=== PATIENT | female | born 1970 | race Caucasian/White ===

== ENCOUNTER 2022-08-27 15:52 | Emergency (ER) | payer OTHER, SELFPAY ==
--- NOTE | 2022-08-27 15:54 | ECG_ITS ---
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
[2022-08-27 15:56] VITALS: BP 132/85; PULSE 106; RESP 20; TEMP 37; O2SAT 98; BMI 24.7
[2022-08-27 16:20] VITALS: O2SAT 98
[2022-08-27] MEDS: HYDROMORPHONE HCL 0.5 MG/0.5 ML SYRINGE 1 MG IV (16:28)
[2022-08-27] MEDS: ONDANSETRON PF 4 MG/2 ML VIAL IV (16:29)
[2022-08-27] MEDS: PANTOPRAZOLE SODIUM 40 MG VIAL IV (16:29)
--- NOTE | 2022-08-27 16:36 | ED_ITS ---
HPI - Abdominal Pain General Chief Complaint: Abdominal Pain Stated Complaint: Abdominal Pain Time Seen by Provider: 08/27/22 15:54 Mode of arrival: walk-in Limitations: no limitations History of Present Illness HPI narrative: Patient is a 52-year-old female well-known to this emergency department who presents to the Emergency Room for the evaluation of epigastric abdominal pain for the last 5-7 days. Patient states her gastrointestinal specialist at [facility] did an endoscopy procedure for her one week ago with esophageal stretching. She states she has had pain since the procedure when she contacted her specialist he referred her to this [facility] emergency department. She has a history of chronic pancreatitis. She denies any fevers or upper respiratory symptoms. She has had occasional vomiting but no diarrhea. She has no low abdominal, flank or chest pain. No urinary symptoms. Related Data Home Medications Medication Instructions Recorded Confirmed ergocalciferol (vitamin D2) 1,250 50,000 unit PO .weekly 08/27/22 08/27/22 mcg (50,000 unit) capsule (Vitamin D2) hueajh-ymehqtnr-weuoewa cap PO DAILY 08/27/22 6,000-19,000-30,000 unit capsule,delayed rel (Creon) Previous Rx's Medication Instructions Recorded oxycodone-acetaminophen 5 mg-325 1 tab PO Q6H PRN pain #10 tabs 08/27/22 mg tablet (Percocet) pantoprazole 40 mg tablet,delayed 40 mg PO DAILY #7 tabs 08/27/22 release (Protonix) promethazine 25 mg tablet 25 mg PO Q6H PRN nausea and 08/27/22 vomiting #12 tabs Allergies Allergy/AdvReac Type Severity Reaction Status Date / Time fentanyl AdvReac Intermediate Verified 08/27/22 15:59 haldol AdvReac Intermediate hives Uncoded 08/27/22 15:59 motrin AdvReac Intermediate hives Uncoded 08/27/22 15:59 tramadol AdvReac Intermediate hives Uncoded 08/27/22 15:59 pcn AdvReac Mild Uncoded 08/27/22 15:59 Review of Systems ROS Constitutional Denies: fever or chills Ears, nose, mouth, and throat Denies: neck pain Cardiovascular Denies: chest pain Respiratory Denies: shortness of breath or cough Gastrointestinal Reports: abdominal pain, nausea and vomiting Genitourinary Denies: painful urination Integumentary/Breast Denies: rash Exam Narrative Exam Narrative: Gen.: Awake, alert, in no distress Head: Normocephalic, atraumatic ENT: Moist mucous membranes Respiratory: No respiratory distress, lungs clear bilaterally Cardio: Regular rate and rhythm Gastrointestinal: Abdomen is soft, nondistended and tender to palpation in the epigastrium and right upper quadrant, voluntary guarding with no rebound Extremities: Moves extremities equally, no injuries noted Psych: Normal mood and affect Neuro: No focal neuro deficit Skin: Warm, dry, intact Constitutional Vital Signs - 24 hr 08/27/22 15:56 08/27/22 16:20 Temperature 98.6 F Pulse Rate [Monitor] 106 H Respiratory Rate 20 Blood Pressure [Left Arm] 132/85 H Pulse Oximetry 98 98 Oxygen Delivery Method Room Air Room Air Course Vital Signs Vital signs: Vital Signs Temperature 98.6 F 08/27/22 15:56 Pulse Rate 106 H 08/27/22 15:56 Respiratory Rate 20 08/27/22 15:56 Blood Pressure 132/85 H 08/27/22 15:56 Pulse Oximetry 98 08/27/22 15:56 Oxygen Delivery Method Room Air 08/27/22 15:56 Temperature 98.6 F 08/27/22 15:56 Pulse Rate 82 08/27/22 17:27 Respiratory Rate 18 08/27/22 17:27 Blood Pressure 108/68 08/27/22 17:27 Pulse Oximetry 98 08/27/22 17:27 Oxygen Delivery Method Room Air 08/27/22 16:20 MDM - Abdominal Pain MDM Narrative Medical decision making narrative: Patient was treated with IV Dilaudid, Zofran, Protonix. Lab studies are stable, amylase is elevated, although it is significantly less elevated than the patient has had in the past. Abdominal x-rays with no evidence of perforation or pneumomediastinum from recent procedure. She is discharged home to follow-up with PCP and her gastrointestinal specialist at [facility]. Short course of analgesics, Protonix and Phenergan were given for home. Return to the Emergency Room if symptoms change or worsen Lab Data Attestation: I reviewed the patient's lab results. Labs: Lab Results 08/27/22 Range/Units 16:23 WBC 11.1 H (4.0-11.0) 10^3/uL RBC 4.20 (4.20-5.40) 10^6/uL Hgb 14.0 (12.0-16.0) g/dL Hct 40.4 (36.0-48.0) % MCV 96.2 (81.0-99.0) fL MCH 33.3 (26.7-34.0) pg MCHC 34.7 (29.9-35.2) g/dL RDW 13.0 (11.0-15.0) % Plt Count 250 (150-450) 10^3/uL MPV 9.8 (9.5-13.5) fL Neut % (Auto) 70.1 (43.0-75.0) % Lymph % (Auto) 22.0 (20.5-60.0) % [place] % (Auto) 6.4 (1.7-12.0) % Eos % (Auto) 0.7 L (0.9-7.0) % Baso % (Auto) 0.5 (0.2-2.0) % Neut # (Auto) 7.8 H (1.4-6.5) 10^3/uL Lymph # (Auto) 2.4 (1.2-3.8) 10^3/uL Randolph # (Auto) 0.7 (0.3-0.8) 10^3/uL Eos # (Auto) 0.1 (0.0-0.7) 10^3/uL Baso # (Auto) 0.1 (0.0-0.1) 10^3/uL Abs Immat Gran (auto) 0.03 (0.00-0.03) 10^3/uL Imm/Tot Granulo (auto) 0.3 (0.0-0.5) % Sodium 140 (136-145) mmol/L Potassium 3.4 L (3.5-5.1) mmol/L Chloride 104 (98-107) mmol/L Carbon Dioxide 24.4 (21.0-32.0) mmol/L Anion Gap 15.0 BUN 11.0 (7.0-18.0) mg/dL Creatinine 1.22 H (0.55-1.02) mg/dL Est GFR ( Amer) 56 L (>=60) Est GFR (Non-Af Amer) 46 L (>=60) BUN/Creatinine Ratio 9.0 Glucose 121 H (74-106) mg/dL Lactate 0.8 (0.4-2.0) mmol/L Calcium 9.8 (8.5-10.1) mg/dL Total Bilirubin 0.2 (0.2-1.0) mg/dL AST 20 (15-37) U/L ALT 23 (14-59) U/L Alkaline Phosphatase 111 (46-116) U/L Troponin I High Sens 5.5 (4.0-51.3) pg/mL Total Protein 7.0 (6.4-8.2) g/dL Albumin 3.7 (3.4-5.0) g/dL Globulin 3.3 g/dL Albumin/Globulin Ratio 1.1 Amylase 127 H (25-115) U/L Lipase 196.0 (73.0-393.0) U/L Imaging Data Abdominal x-ray: Attestation: I have reviewed the pertinent imaging results. Radiologist's impression: Procedure: XR acute abdomen series EXAM TYPE: XR acute abdomen series EXAM DATE AND TIME: 08/27/2022 4:40 PM EDT INDICATION: 52 years old Female with pain, history of pancreatitis COMPARISON: None. TECHNIQUE: Frontal view of the chest. Supine and upright views of the abdomen. FINDINGS: No pneumothorax, pleural effusion or focal consolidation. Heart size is within normal limits. Normal nonobstructive bowel gas pattern. No subdiaphragmatic free intraperitoneal air. No pathologic calcifications. Visualized osseous structures appear unremarkable. IMPRESSION: Nonspecific abdomen. Electronically authenticated by: Chhaya RONQUILLO Date: 08/27/2022 17:23 ECG Data Attestation: ?I have reviewed the pertinent ECG results. (Sinus tachycardia at a rate of 101 , no acute ST elevation or ectopy.) ECG interpretation date: 08/27/22 ECG interpretation time: 16:55 Discharge Plan Discharge Chief Complaint: Abdominal Pain Clinical Impression: Chronic pancreatitis, Abdominal pain Patient Disposition: Home, Self-Care Time of Disposition Decision: 17:32 Condition: Good Prescriptions / Home Meds: New promethazine 25 mg tablet 25 mg PO Q6H PRN (Reason: nausea and vomiting) Qty: 12 0RF pantoprazole [Protonix] 40 mg tablet,delayed release (DR/EC) 40 mg PO DAILY Qty: 7 0RF oxycodone-acetaminophen [Percocet] 5-325 mg tablet 1 tab PO Q6H PRN (Reason: pain) Qty: 10 0RF No Action ergocalciferol (vitamin D2) [Vitamin D2] 1,250 mcg (50,000 unit) capsule 50,000 unit PO .weekly Creon 6,000-19,000 -30,000 unit capsule,delayed release(DR/EC) PO DAILY Instructions: Abdominal Pain (ED) Stand Alone Forms: Portal Instructions Referrals: [facility] [Primary Care Provider] - 1 week Discharge Date/Time: 08/27/22 17:42
[2022-08-27 16:37] LABS: Basophils Absolute Auto 0.1 10^3/uL (0.0-0.1); Basophils Percent Auto 0.5 % (0.2-2.0); Eosinophils Absolute Auto 0.1 10^3/uL (0.0-0.7); Eosinophils Percent Auto 0.7 % (0.9-7.0); Hematocrit 40.4 % (36.0-48.0); Immature Granulocytes Abs Auto 0.03 10^3/uL (0.00-0.03); Immature Granulocytes Pct Auto 0.3 % (0.0-0.5); Lymphocytes Absolute Auto 2.4 10^3/uL (1.2-3.8); Mean Corpuscular HGB Conc 34.7 g/dL (29.9-35.2); Mean Corpuscular Hemoglobin 33.3 pg (26.7-34.0); Mean Corpuscular Volume 96.2 fL (81.0-99.0); Mean Platelet Volume 9.8 fL (9.5-13.5); Monocytes Absolute Auto 0.7 10^3/uL (0.3-0.8); Monocytes Percent Auto 6.4 % (1.7-12.0); Neutrophils Absolute Auto 7.8 10^3/uL (1.4-6.5); Neutrophils Percent Auto 70.1 % (43.0-75.0); Platelet Count 250 10^3/uL (150-450); White Blood Count 11.1 10^3/uL (4.0-11.0)
--- NOTE | 2022-08-27 16:37 | XR_ITS ---
The [address] [address] Patient Name: CHIOMA RAINEY MRN: [id number] date: 1970 Sex: F Assigned Patient Location: ER Current Patient Location: ER Accession/Order Number: [id number] Exam Date: 08/27/2022 16:40 Report Date: 08/27/2022 17:23 At the request of: LUCRETIA SOLIMAN Procedure: XR acute abdomen series EXAM TYPE: XR acute abdomen series EXAM DATE AND TIME: 08/27/2022 4:40 PM EDT INDICATION: 52 years old Female with pain, history of pancreatitis COMPARISON: None. TECHNIQUE: Frontal view of the chest. Supine and upright views of the abdomen. FINDINGS: No pneumothorax, pleural effusion or focal consolidation. Heart size is within normal limits. Normal nonobstructive bowel gas pattern. No subdiaphragmatic free intraperitoneal air. No pathologic calcifications. Visualized osseous structures appear unremarkable. IMPRESSION: Nonspecific abdomen. Electronically authenticated by: Chhaya RONQUILLO Date: 08/27/2022 17:23
[2022-08-27 16:51] LABS: Alanine Aminotransferase 23 U/L (14-59); Albumin Globulin Ratio 1.1; Albumin Level 3.7 g/dL (3.4-5.0); Alkaline Phosphatase 111 U/L (46-116); Amylase 127 U/L (25-115); Aspartate Amino Transferase 20 U/L (15-37); Bilirubin Total 0.2 mg/dL (0.2-1.0); Calcium 9.8 mg/dL (8.5-10.1); Carbon Dioxide 24.4 mmol/L (21.0-32.0); Chloride 104 mmol/L (98-107); Estimated GFR (African America 56 (>=60); Estimated GFR (Non-African Ame 46 (>=60); Globulin 3.3 g/dL; Glucose 121 mg/dL (74-106); Lactate/Lactic Acid 0.8 mmol/L (0.4-2.0); Potassium 3.4 mmol/L (3.5-5.1); Sodium 140 mmol/L (136-145); Troponin I High Sensitivity 5.5 pg/mL (4.0-51.3)
[2022-08-27 17:27] VITALS: BP 108/68; PULSE 82; RESP 18; O2SAT 98
== END 2022-08-27 17:42 | disposition home or self-care (01) ==
PROVIDERS: Physician Assistant; Emergency Provider Emergency Medicine
DX: R10.9 Unspecified abdominal pain (principal); K86.1 Other chronic pancreatitis; Z79.899 Other long term (current) drug therapy
CPT/HCPCS: 36415; 74022; 80053; 81003; 82150; 83605; 83690; 84484; 85025; 93005; 96374; 96375; 99285; J1170

== ENCOUNTER 2022-10-14 17:29 | Emergency (ER) | payer OTHER, SELFPAY ==
[2022-10-14 17:33] VITALS: BP 151/92; PULSE 101; RESP 18; TEMP 36.8; O2SAT 97; BMI 23.8
--- NOTE | 2022-10-14 17:39 | ED.ABDPAIN1 ---
HPI - Abdominal Pain General Chief Complaint: Abdominal Pain Stated Complaint: ADBOMINAL PAIN Time Seen by Provider: 10/14/22 17:37 Source: patient Mode of arrival: walk-in History of Present Illness HPI narrative: patient is a 52-year-old female on to this emergency department who presents to the Emergency Room for epigastric discomfort for the last week. She has a history of chronic pancreatitis and has had multiple gastrointestinal procedures and gastrointestinal evaluations with various specialists. She is currently seeking care with [facility] and has a gastrointestinal specialist there. She had a procedure for endoscopy with esophageal stretching two months ago and states that her specialist believes that it didn't take and she is due in December to have the same procedure again. She has had multiple episodes of emesis. She has Phenergan at home that she took approximately three hours ago without improvement. She has had some diarrhea. She has had no fevers, chills, upper respiratory symptoms, chest pain or shortness of breath. Related Data Home Medications Medication Instructions Recorded Confirmed ergocalciferol (vitamin D2) 1,250 50,000 unit PO .weekly 08/27/22 08/27/22 mcg (50,000 unit) capsule (Vitamin D2) sjmmoe-qyoemwmk-lwphxmj cap PO DAILY 08/27/22 6,000-19,000-30,000 unit capsule,delayed rel (Creon) Previous Rx's Medication Instructions Recorded oxycodone-acetaminophen 5 mg-325 1 tab PO Q6H PRN pain #10 tabs 08/27/22 mg tablet (Percocet) pantoprazole 40 mg tablet,delayed 40 mg PO DAILY #7 tabs 08/27/22 release (Protonix) promethazine 25 mg tablet 25 mg PO Q6H PRN nausea and 08/27/22 vomiting #12 tabs hydrocodone 5 mg-acetaminophen 325 1 tab PO Q6H PRN pain #8 tabs 10/14/22 mg tablet ondansetron 4 mg disintegrating 4 mg PO Q6H PRN nausea and 10/14/22 tablet vomiting #12 tabs sucralfate 1 gram tablet (Carafate) 1 g PO Q6H PRN abdominal pain #12 10/14/22 tabs Allergies Allergy/AdvReac Type Severity Reaction Status Date / Time ketorolac [From Toradol] AdvReac Severe Hives Verified 10/14/22 17:37 fentanyl AdvReac Intermediate Verified 10/14/22 17:37 haldol AdvReac Intermediate hives Uncoded 10/14/22 17:37 motrin AdvReac Intermediate hives Uncoded 10/14/22 17:37 tramadol AdvReac Intermediate hives Uncoded 10/14/22 17:37 pcn AdvReac Mild Uncoded 10/14/22 17:37 Exam Constitutional Vital Signs, click to edit/add: Last Vital Signs Temp 98.3 F 10/14/22 17:33 Pulse 101 H 10/14/22 17:33 Resp 18 10/14/22 17:33 BP 151/92 H 10/14/22 17:33 Pulse Ox 97 10/14/22 17:33 O2 Del Method Room Air 10/14/22 17:33 Course Vital Signs Vital signs: Vital Signs Temperature 98.3 F 10/14/22 17:33 Pulse Rate 101 H 10/14/22 17:33 Respiratory Rate 18 10/14/22 17:33 Blood Pressure 151/92 H 10/14/22 17:33 Pulse Oximetry 97 10/14/22 17:33 Oxygen Delivery Method Room Air 10/14/22 17:33 Temperature 98.3 F 10/14/22 17:33 Pulse Rate 101 H 10/14/22 17:33 Respiratory Rate 18 10/14/22 17:33 Blood Pressure 151/92 H 10/14/22 17:33 Pulse Oximetry 97 10/14/22 17:33 Oxygen Delivery Method Room Air 10/14/22 17:33 MDM - Abdominal Pain MDM Narrative Medical decision making narrative: lab studies show no evidence of leukocytosis, lipase and amylase are normal. Abdomen is soft and benign on recheck by attending physician. Patient with normal EKG and troponin. She was treated with IV Dilaudid, fluids, Zofran. She will be discharged home with a short course of analgesics, Carafate, Zofran. Follow-up with [facility] specialist as scheduled. Return to the Emergency Room if symptoms change or worsen. Medical Records Attestation: I reviewed the patient's medical records. Lab Data Attestation: I reviewed the patient's lab results. Labs: Lab Results 10/14/22 Range/Units 17:45 WBC 9.8 (4.0-11.0) 10^3/uL RBC 4.17 L (4.20-5.40) 10^6/uL Hgb 13.6 (12.0-16.0) g/dL Hct 40.2 (36.0-48.0) % MCV 96.4 (81.0-99.0) fL MCH 32.6 (26.7-34.0) pg MCHC 33.8 (29.9-35.2) g/dL RDW 13.2 (11.0-15.0) % Plt Count 261 (150-450) 10^3/uL MPV 9.4 L (9.5-13.5) fL Neut % (Auto) 59.8 (43.0-75.0) % Lymph % (Auto) 28.6 (20.5-60.0) % Keith % (Auto) 9.0 (1.7-12.0) % Eos % (Auto) 1.7 (0.9-7.0) % Baso % (Auto) 0.7 (0.2-2.0) % Neut # (Auto) 5.9 (1.4-6.5) 10^3/uL Lymph # (Auto) 2.8 (1.2-3.8) 10^3/uL Keith # (Auto) 0.9 H (0.3-0.8) 10^3/uL Eos # (Auto) 0.2 (0.0-0.7) 10^3/uL Baso # (Auto) 0.1 (0.0-0.1) 10^3/uL Abs Immat Gran (auto) 0.02 (0.00-0.03) 10^3/uL Imm/Tot Granulo (auto) 0.2 (0.0-0.5) % Sodium 138 (136-145) mmol/L Potassium 3.4 L (3.5-5.1) mmol/L Chloride 104 (98-107) mmol/L Carbon Dioxide 24.3 (21.0-32.0) mmol/L Anion Gap 13.1 BUN 10.0 (7.0-18.0) mg/dL Creatinine 1.01 (0.55-1.02) mg/dL Est GFR ( Amer) >60 (>=60) Est GFR (Non-Af Amer) 57 L (>=60) BUN/Creatinine Ratio 9.9 Glucose 141 H (74-106) mg/dL Calcium 9.2 (8.5-10.1) mg/dL Total Bilirubin 0.2 (0.2-1.0) mg/dL AST 17 (15-37) U/L ALT 19 (14-59) U/L Alkaline Phosphatase 119 H (46-116) U/L Troponin I High Sens 4.1 (4.0-51.3) pg/mL Total Protein 6.8 (6.4-8.2) g/dL Albumin 3.6 (3.4-5.0) g/dL Globulin 3.2 g/dL Albumin/Globulin Ratio 1.1 Amylase 110 (25-115) U/L Lipase 176.0 (73.0-393.0) U/L Urine Color Yellow (YELLOW) Urine Clarity Clear (CLEAR) Urine pH 5.0 (5.0-9.0) Ur Specific [place] 1.025 (1.005-1.025) Urine Protein Negative (NEG/TRACE) mg/dL Urine Glucose (UA) Negative (NEGATIVE) mg/dL Urine Ketones Negative (NEGATIVE) mg/dL Urine Occult Blood Negative (NEGATIVE) Urine Nitrite Negative (NEGATIVE) Urine Bilirubin Negative (NEGATIVE) Urine Urobilinogen 1.0 (0.2-1.0) EU/dL Ur Leukocyte Esterase Negative (NEGATIVE) ECG Data Attestation: I personally reviewed and interpreted this ECG as follows: (normal sinus rhythm at a rate of eighty-seven, no acute ST elevation or ectopy. Artifact noted. EKG reviewed by attending physician) Discharge Plan Discharge Chief Complaint: Abdominal Pain Clinical Impression: Abdominal pain Patient Disposition: Home, Self-Care Time of Disposition Decision: 18:53 Condition: Good Prescriptions / Home Meds: New hydrocodone-acetaminophen 5-325 mg tablet 1 tab PO Q6H PRN (Reason: pain) Qty: 8 0RF Rx Instructions: DX: R10.9 sucralfate [Carafate] 1 gram tablet 1 g PO Q6H PRN (Reason: abdominal pain) Qty: 12 0RF ondansetron 4 mg tablet,disintegrating 4 mg PO Q6H PRN (Reason: nausea and vomiting) Qty: 12 0RF No Action ergocalciferol (vitamin D2) [Vitamin D2] 1,250 mcg (50,000 unit) capsule 50,000 unit PO .weekly Creon 6,000-19,000 -30,000 unit capsule,delayed release(DR/EC) PO DAILY promethazine 25 mg tablet 25 mg PO Q6H PRN (Reason: nausea and vomiting) Qty: 12 0RF pantoprazole [Protonix] 40 mg tablet,delayed release (DR/EC) 40 mg PO DAILY Qty: 7 0RF oxycodone-acetaminophen [Percocet] 5-325 mg tablet 1 tab PO Q6H PRN (Reason: pain) Qty: 10 0RF Instructions: Abdominal Pain (ED) Stand Alone Forms: Portal Instructions Referrals: [facility] [Primary Care Provider] - 1 week
--- NOTE | 2022-10-14 17:45 | ECG_ITS ---
The [facility] Test Date: 2022-10-14 Pat Name: CHIOMA RAINEY Department: Room: - Gender: Female Arrt Technologist: : 1970 Requested By: [id number] Order Number: [id number] Reading MD: DESI LUNA Measurements Intervals [place] Rate: 87 P: 72 IN: 138 QRS: 64 QRSD: 72 T: 65 QT: 356 QTc: 400 Interpretive Statements 1100 Sinus rhythm 9110 normal ECG Compared to ECG 08/27/2022 16:02:59 Sinus tachycardia no longer present Electronically Signed On 10-15-2022 7:08:16 EDT by DESI LUNA
[2022-10-14] MEDS: ONDANSETRON PF 4 MG/2 ML VIAL IV (17:54)
[2022-10-14] MEDS: FAMOTIDINE/PF 20 MG/2 ML VIAL IV (17:54)
[2022-10-14] MEDS: HYDROMORPHONE HCL 0.5 MG/0.5 ML SYRINGE 1 MG IV (17:54)
[2022-10-14] MEDS: 0.9 % SODIUM CHLORIDE 1,000 ML 999 ML IV (17:54)
[2022-10-14 18:01] LABS: Basophils Absolute Auto 0.1 10^3/uL (0.0-0.1); Basophils Percent Auto 0.7 % (0.2-2.0); Bilirubin Urine NEGATIVE (NEGATIVE); Blood Urine NEGATIVE (NEGATIVE); Clarity Urine CLEAR (CLEAR); Color Urine YELLOW (YELLOW); Eosinophils Absolute Auto 0.2 10^3/uL (0.0-0.7); Eosinophils Percent Auto 1.7 % (0.9-7.0); Glucose Urine UA NEGATIVE (NEGATIVE); Hematocrit 40.2 % (36.0-48.0); Hemoglobin 13.6 g/dL (12.0-16.0); Immature Granulocytes Abs Auto 0.02 10^3/uL (0.00-0.03); Immature Granulocytes Pct Auto 0.2 % (0.0-0.5); Ketones Urine NEGATIVE (NEGATIVE); Leukocyte Esterase Urine NEGATIVE (NEGATIVE); Lymphocytes Absolute Auto 2.8 10^3/uL (1.2-3.8); Lymphocytes Percent Auto 28.6 % (20.5-60.0); Mean Corpuscular HGB Conc 33.8 g/dL (29.9-35.2); Mean Corpuscular Hemoglobin 32.6 pg (26.7-34.0); Mean Corpuscular Volume 96.4 fL (81.0-99.0); Mean Platelet Volume 9.4 fL (9.5-13.5); Monocytes Absolute Auto 0.9 10^3/uL (0.3-0.8); Neutrophils Absolute Auto 5.9 10^3/uL (1.4-6.5); Neutrophils Percent Auto 59.8 % (43.0-75.0); Nitrite Urine NEGATIVE (NEGATIVE); Platelet Count 261 10^3/uL (150-450); Protein Urine NEGATIVE (NEG/TRACE); Red Blood Count 4.17 10^6/uL (4.20-5.40); Red Cell Distribution Width 13.2 % (11.0-15.0); Specific Gravity Urine 1.025 (1.005-1.025); White Blood Count 9.8 10^3/uL (4.0-11.0)
[2022-10-14 18:04] LABS: Urine Microscopic Indicated NO
[2022-10-14 18:14] LABS: Alanine Aminotransferase 19 U/L (14-59); Albumin Globulin Ratio 1.1; Albumin Level 3.6 g/dL (3.4-5.0); Alkaline Phosphatase 119 U/L (46-116); Amylase 110 U/L (25-115); Anion Gap 13.1; Aspartate Amino Transferase 17 U/L (15-37); BUN Creatinine Ratio 9.9; Bilirubin Total 0.2 mg/dL (0.2-1.0); Calcium 9.2 mg/dL (8.5-10.1); Carbon Dioxide 24.3 mmol/L (21.0-32.0); Chloride 104 mmol/L (98-107); Estimated GFR (African America >60 (>=60); Estimated GFR (Non-African Ame 57 (>=60); Globulin 3.2 g/dL; Glucose 141 mg/dL (74-106); Potassium 3.4 mmol/L (3.5-5.1); Sodium 138 mmol/L (136-145); Total Protein 6.8 g/dL (6.4-8.2)
[2022-10-14 18:15] LABS: Troponin I High Sensitivity 4.1 pg/mL (4.0-51.3)
== END 2022-10-14 19:12 | disposition home or self-care (01) ==
PROVIDERS: Physician Assistant; Emergency Provider Emergency Medicine
DX: R10.9 Unspecified abdominal pain (principal); Z79.899 Other long term (current) drug therapy
CPT/HCPCS: 36415; 80053; 81003; 82150; 83690; 84484; 85025; 93005; 96361; 96374; 96375; 99285; J1170

== ENCOUNTER 2022-11-02 08:48 | Emergency (ER) | payer OTHER, SELFPAY ==
[2022-11-02 08:54] VITALS: BP 168/89; PULSE 98; RESP 18; O2SAT 100; BMI 23.8
[2022-11-02 09:03] VITALS: TEMP 36.6
[2022-11-02 10:00] LABS: Basophils Absolute Auto 0.1 10^3/uL (0.0-0.1); Basophils Percent Auto 0.8 % (0.2-2.0); Eosinophils Absolute Auto 0.1 10^3/uL (0.0-0.7); Eosinophils Percent Auto 1.6 % (0.9-7.0); Hematocrit 43.6 % (36.0-48.0); Hemoglobin 14.7 g/dL (12.0-16.0); Immature Granulocytes Abs Auto 0.02 10^3/uL (0.00-0.03); Immature Granulocytes Pct Auto 0.3 % (0.0-0.5); Lymphocytes Absolute Auto 1.8 10^3/uL (1.2-3.8); Mean Corpuscular HGB Conc 33.7 g/dL (29.9-35.2); Mean Corpuscular Hemoglobin 32.9 pg (26.7-34.0); Mean Corpuscular Volume 97.5 fL (81.0-99.0); Mean Platelet Volume 9.9 fL (9.5-13.5); Monocytes Absolute Auto 0.7 10^3/uL (0.3-0.8); Monocytes Percent Auto 8.6 % (1.7-12.0); Neutrophils Absolute Auto 5.2 10^3/uL (1.4-6.5); Neutrophils Percent Auto 65.7 % (43.0-75.0); Platelet Count 230 10^3/uL (150-450); Red Blood Count 4.47 10^6/uL (4.20-5.40); Red Cell Distribution Width 13.2 % (11.0-15.0); White Blood Count 7.9 10^3/uL (4.0-11.0)
[2022-11-02 10:05] LABS: Bilirubin Urine NEGATIVE (NEGATIVE); Blood Urine NEGATIVE (NEGATIVE); Clarity Urine CLEAR (CLEAR); Color Urine LT. YELLOW (YELLOW); Glucose Urine UA NEGATIVE (NEGATIVE); Ketones Urine NEGATIVE (NEGATIVE); Leukocyte Esterase Urine NEGATIVE (NEGATIVE); Nitrite Urine NEGATIVE (NEGATIVE); Protein Urine NEGATIVE (NEG/TRACE); Specific Gravity Urine <=1.005 (1.005-1.025); Urine Microscopic Indicated NO; Urobilinogen Urine 0.2 EU/dL (0.2-1.0)
[2022-11-02] MEDS: 0.9 % SODIUM CHLORIDE 1,000 ML 999 ML IV (10:07)
--- NOTE | 2022-11-02 10:11 | ED_ITS ---
HPI - Abdominal Pain General Chief Complaint: Abdominal Pain Stated Complaint: STOMACH PAIN Time Seen by Provider: 11/02/22 09:38 Source: patient Mode of arrival: walk-in History of Present Illness HPI narrative: This document has been composed with a new electronic medical record and [employer] voice recognition system. This document may not fully inaccurately reflect the entirety of the patient encounter.patient's here complaining of a bdominal pain. She has a long-standing history, approximate fifteen years of pancreatitis secondary to alcohol abuse. She's not using alcohol and has been doing pretty well. She is under the care of a editing internship at [facility]. Her last endoscopy was in September of this year where she had dilation of her lower esophageal sphincter. She has no history of peptic ulcer disease gastric ulcers or gastrointestinal bleeding recently. She still has intense nausea and epigastric pain. She has had her gallbladder previously removed. She not have a lower abdominal discomfort. She has no fever shakes or chills. She has no urinary symptomatology today. She's been on Pepcid for a long time. He also just started her on new pancreatic enzyme back in September. She's not seen any blood in her stool. Related Data Home Medications Medication Instructions Recorded Confirmed ergocalciferol (vitamin D2) 1,250 50,000 unit PO .weekly 08/27/22 08/27/22 mcg (50,000 unit) capsule (Vitamin D2) [id number]-utmpwbiv-jpnfgzy cap PO DAILY 08/27/22 6,000-19,000-30,000 unit capsule,delayed rel (Creon) Previous Rx's Medication Instructions Recorded oxycodone-acetaminophen 5 mg-325 1 tab PO Q6H PRN pain #10 tabs 08/27/22 mg tablet (Percocet) pantoprazole 40 mg tablet,delayed 40 mg PO DAILY #7 tabs 08/27/22 release (Protonix) promethazine 25 mg tablet 25 mg PO Q6H PRN nausea and 08/27/22 vomiting #12 tabs hydrocodone 5 mg-acetaminophen 325 1 tab PO Q6H PRN pain #8 tabs 10/14/22 mg tablet ondansetron 4 mg disintegrating 4 mg PO Q6H PRN nausea and 10/14/22 tablet vomiting #12 tabs sucralfate 1 gram tablet (Carafate) 1 g PO Q6H PRN abdominal pain #12 08/08/23 tabs Allergies Allergy/AdvReac Type Severity Reaction Status Date / Time ketorolac [From Toradol] AdvReac Severe Hives Verified 10/14/22 17:37 fentanyl AdvReac Intermediate Verified 10/14/22 17:37 haldol AdvReac Intermediate hives Uncoded 10/14/22 17:37 motrin AdvReac Intermediate hives Uncoded 10/14/22 17:37 tramadol AdvReac Intermediate hives Uncoded 10/14/22 17:37 pcn AdvReac Mild Uncoded 10/14/22 17:37 Exam Narrative Exam Narrative: patient's awake alert good historian appears in mild to moderate discomfort. Her vital signs are noted. Constitutional skin is warm and dry she's not pale clammy or diaphoretic. HEENT there is no jaundice or scleral icterus or pallor. I show no conjunctivitis extracoronal muscles are normal. Respirations no respiratory distress she speaks in full sentences there is no upper airway obstructive phenomenon. Abdomen she does have some discomfort with palpation in the epigastric area. There is no peritoneal findings rebound or rigidity. Extremities are unremarkable. Constitutional Vital Signs, click to edit/add: Last Vital Signs Temp 98 F 11/02/22 09:03 Pulse 98 H 11/02/22 08:54 Resp 18 11/02/22 08:54 BP 168/89 H 11/02/22 08:54 Pulse Ox 100 11/02/22 08:54 Course Vital Signs Vital signs: Vital Signs Pulse Rate 98 H 11/02/22 08:54 Respiratory Rate 18 11/02/22 08:54 Blood Pressure 168/89 H 11/02/22 08:54 Pulse Oximetry 100 11/02/22 08:54 Temperature 98 F 11/02/22 09:03 Pulse Rate 98 H 11/02/22 08:54 Respiratory Rate 18 11/02/22 08:54 Blood Pressure 168/89 H 11/02/22 08:54 Pulse Oximetry 100 11/02/22 08:54 MDM - Abdominal Pain MDM Narrative Medical decision making narrative: this patient was able to open her my chart from [facility]. She in fact had upper endoscopy and celiac plexus block done by her editing internship. She's had at least two or three of those and they've been pretty effective. During that last procedure she was noted to have some dilation of the common bile duct. Today we did CT scan of her abdomen and pelvis with both oral and IV contrast and there is clark pancreatic inflammation or swelling. There was a suggestion of some dilation of her common and pancreatic ducts but this is unchanged from her last endoscopy done at [facility]. Her white blood cell count is actually improved from baseline and her hemoglobin is actually improved as well. T bilirubin is not elevated and her pancreatic lipase is within normal limits as well. When I examined the patient's belly 2nd time she still has no acute peritoneal findings. I believe her best course of action is discuss the CT findings and lab results with her editing internship 1st thing tomorrow morning. There is no urgent need for admission or intervention at this time. She is advised to be on a clear fluid diet for at least twenty-four hours and slowly advance as tolerated. Lab Data Labs: Lab Results 11/02/22 Range/Units 09:49 WBC 7.9 (4.0-11.0) 10^3/uL RBC 4.47 (4.20-5.40) 10^6/uL Hgb 14.7 (12.0-16.0) g/dL Hct 43.6 (36.0-48.0) % MCV 97.5 (81.0-99.0) fL MCH 32.9 (26.7-34.0) pg MCHC 33.7 (29.9-35.2) g/dL RDW 13.2 (11.0-15.0) % Plt Count 230 (150-450) 10^3/uL MPV 9.9 (9.5-13.5) fL Neut % (Auto) 65.7 (43.0-75.0) % Lymph % (Auto) 23.0 (20.5-60.0) % [place] % (Auto) 8.6 (1.7-12.0) % Eos % (Auto) 1.6 (0.9-7.0) % Baso % (Auto) 0.8 (0.2-2.0) % Neut # (Auto) 5.2 (1.4-6.5) 10^3/uL Lymph # (Auto) 1.8 (1.2-3.8) 10^3/uL [place] # (Auto) 0.7 (0.3-0.8) 10^3/uL Eos # (Auto) 0.1 (0.0-0.7) 10^3/uL Baso # (Auto) 0.1 (0.0-0.1) 10^3/uL Abs Immat Gran (auto) 0.02 (0.00-0.03) 10^3/uL Imm/Tot Granulo (auto) 0.3 (0.0-0.5) % Sodium 138 (136-145) mmol/L Potassium 3.6 (3.5-5.1) mmol/L Chloride 106 (98-107) mmol/L Carbon Dioxide 28.3 (21.0-32.0) mmol/L Anion Gap 7.3 BUN 6.0 L (7.0-18.0) mg/dL Creatinine 0.87 (0.55-1.02) mg/dL Est GFR ( Amer) >60 (>=60) Est GFR (Non-Af Amer) >60 (>=60) BUN/Creatinine Ratio 6.9 Glucose 76 (74-106) mg/dL Lactate 1.0 (0.4-2.0) mmol/L Calcium 9.7 (8.5-10.1) mg/dL Total Bilirubin 0.2 (0.2-1.0) mg/dL AST 11 L (15-37) U/L ALT 19 (14-59) U/L Alkaline Phosphatase 126 H (46-116) U/L Total Protein 7.4 (6.4-8.2) g/dL Albumin 4.0 (3.4-5.0) g/dL Globulin 3.4 g/dL Albumin/Globulin Ratio 1.2 Lipase 278.0 (73.0-393.0) U/L Urine Color Lt. yellow (YELLOW) Urine Clarity Clear (CLEAR) Urine pH 6.0 (5.0-9.0) Ur Specific [place] <=1.005 A (1.005-1.025) Urine Protein Negative (NEG/TRACE) mg/dL Urine Glucose (UA) Negative (NEGATIVE) mg/dL Urine Ketones Negative (NEGATIVE) mg/dL Urine Occult Blood Negative (NEGATIVE) Urine Nitrite Negative (NEGATIVE) Urine Bilirubin Negative (NEGATIVE) Urine Urobilinogen 0.2 (0.2-1.0) EU/dL Ur Leukocyte Esterase Negative (NEGATIVE) Discharge Plan Discharge Chief Complaint: Abdominal Pain Clinical Impression: Abdominal pain Patient Disposition: Home, Self-Care Time of Disposition Decision: 13:55 Prescriptions / Home Meds: No Action ergocalciferol (vitamin D2) [Vitamin D2] 1,250 mcg (50,000 unit) capsule 50,000 unit PO .weekly Creon 6,000-19,000 -30,000 unit capsule,delayed release(DR/EC) PO DAILY promethazine 25 mg tablet 25 mg PO Q6H PRN (Reason: nausea and vomiting) Qty: 12 0RF pantoprazole [Protonix] 40 mg tablet,delayed release (DR/EC) 40 mg PO DAILY Qty: 7 0RF oxycodone-acetaminophen [Percocet] 5-325 mg tablet 1 tab PO Q6H PRN (Reason: pain) Qty: 10 0RF hydrocodone-acetaminophen 5-325 mg tablet 1 tab PO Q6H PRN (Reason: pain) Qty: 8 0RF Rx Instructions: DX: R10.9 sucralfate [Carafate] 1 gram tablet 1 g PO Q6H PRN (Reason: abdominal pain) Qty: 12 0RF ondansetron 4 mg tablet,disintegrating 4 mg PO Q6H PRN (Reason: nausea and vomiting) Qty: 12 0RF Stand Alone Forms: Portal Instructions Referrals: [facility] [Primary Care Provider] - 1 week
[2022-11-02 10:13] LABS: Alanine Aminotransferase 19 U/L (14-59); Albumin Globulin Ratio 1.2; Alkaline Phosphatase 126 U/L (46-116); Anion Gap 7.3; Aspartate Amino Transferase 11 U/L (15-37); BUN Creatinine Ratio 6.9; Bilirubin Total 0.2 mg/dL (0.2-1.0); Calcium 9.7 mg/dL (8.5-10.1); Carbon Dioxide 28.3 mmol/L (21.0-32.0); Chloride 106 mmol/L (98-107); Estimated GFR (African America >60 (>=60); Estimated GFR (Non-African Ame >60 (>=60); Globulin 3.4 g/dL; Glucose 76 mg/dL (74-106); Potassium 3.6 mmol/L (3.5-5.1); Sodium 138 mmol/L (136-145); Total Protein 7.4 g/dL (6.4-8.2)
[2022-11-02] MEDS: PROMETHAZINE HCL 25 MG/ML VIAL 12.5 MG IV (10:13)
--- NOTE | 2022-11-02 10:45 | CT_ITS ---
The [address] [address] Patient Name: CHIOMA BOUDREAUX MRN: [id number] date: 1970 Sex: F Assigned Patient Location: ER Current Patient Location: ER Accession/Order Number: [id number] Exam Date: 11/02/2022 12:25 Report Date: 11/02/2022 13:15 At the request of: SHARON REED Procedure: CT abdomen pelvis w con CT abdomen pelvis w con CLINICAL HISTORY: increasing pain with chronic pancreatitis COMPARISON: 08/29/2018. TECHNIQUE: Axial CT from lung bases through symphysis pubis following the injection of 90 mL of Omnipaque 300 iodinated contrast material. 2 cups oral contrast administered. Coronal and sagittal reconstructions generated. Dose reduction techniques were achieved by using automated exposure control and/or adjustment of mA and/or kV according to patient size and/or use of iterative reconstruction technique. FINDINGS: CT ABDOMEN FINDINGS: Normal heart size. Lung bases clear. Cholecystectomy with common duct enlargement up to 14 mm and nonvisualized at the level of the ampulla. The main pancreatic duct also mildly enlarged up to 4 mm in the not well seen at the ampulla. Question heterogeneous focus at this level of up to 6 mm, choledocholithiasis or possible pancreatic lesion. No acute peripancreatic edema or collection. Portal venous system is patent. Liver and spleen with normal size and enhancement. Normal-sized right adrenal gland. Left adrenal 13 mm indeterminate nodule. Normal bilateral renal enhancement without hydronephrosis. CT PELVIS FINDINGS: Hysterectomy. Urinary bladder unremarkable. Appendix is negative. No acute bony process. Mild lumbar levocurvature. CT/CT abdomen pelvis w con IMPRESSION: Cholecystectomy. Prominence of the common and pancreatic ducts with nonvisualization near the ampulla and subtle heterogeneous appearance at this level. Difficult to identify the etiology but could represent either choledocholithiasis versus obstructing lesion. Recommend MRCP and/or ERCP. There is no acute peripancreatic edema or collection. Left adrenal 13 mm indeterminate nodule. This could also benefit by noncontrast MRI abdomen with and/out of phase imaging. No bowel obstruction or free air. Electronically authenticated by: KRYSTAL ROSE Date: 11/02/2022 13:15
[2022-11-02] MEDS: HYDROMORPHONE HCL 1 MG/ML CARTRIDGE IVP (11:58)
== END 2022-11-02 14:04 | disposition home or self-care (01) ==
PROVIDERS: Emergency Provider Emergency Medicine Emergency Medical Services
DX: R10.9 Unspecified abdominal pain (principal); Z79.899 Other long term (current) drug therapy
CPT/HCPCS: 36415; 74177; 80053; 81003; 83605; 83690; 85025; 96374; 96375; 99284; J1170; Q9967

== ENCOUNTER 2022-11-19 21:41 | Emergency (ER) | payer OTHER, SELFPAY ==
[2022-11-19 21:47] VITALS: BP 142/79; PULSE 111; RESP 48; TEMP 36.8; O2SAT 97; BMI 23.8
--- NOTE | 2022-11-19 21:53 | ECG_ITS ---
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
--- NOTE | 2022-11-19 21:53 | XR_ITS ---
The [address] [address] Patient Name: CHIOMA BOUDREAUX MRN: [id number] date: 1970 Sex: F Assigned Patient Location: ER Current Patient Location: ER Accession/Order Number: [id number] Exam Date: 11/19/2022 22:11 Report Date: 11/19/2022 22:37 At the request of: ELENITA ROLLINS Procedure: XR chest 1V EXAMINATION: CHEST RADIOGRAPH (PORTABLE SINGLE VIEW AP) Exam Date/Time: 11/19/2022 10:11 PM EDT Clinical History: sob Comparison: 08/27/2022 RESULT: Lines, tubes, and devices: None. Lungs and pleura: No focal consolidation. No pneumothorax. No pleural effusion. Cardiomediastinal silhouette: Stable cardiomediastinal silhouette. No significant atherosclerotic calcification. Other: No acute osseous process. XR/XR chest 1V IMPRESSION: No acute cardiopulmonary abnormality. Electronically authenticated by: DIAN CABALLERO Date: 11/19/2022 22:37
[2022-11-19 22:00] VITALS: PULSE 108; RESP 28; O2SAT 96; O2SAT 97
[2022-11-19] MEDS: IPRATROPIUM/ALBUTEROL SULFATE 3 ML AMPUL.NEB IH ×2 (22:00→23:36)
[2022-11-19 22:06] VITALS: PULSE 101; RESP 30; O2SAT 98
[2022-11-19 22:27] LABS: Basophils Absolute Auto 0.1 10^3/uL (0.0-0.1); Basophils Percent Auto 0.8 % (0.2-2.0); Eosinophils Absolute Auto 0.3 10^3/uL (0.0-0.7); Eosinophils Percent Auto 3.6 % (0.9-7.0); Hematocrit 41.9 % (36.0-48.0); Hemoglobin 14.6 g/dL (12.0-16.0); Immature Granulocytes Abs Auto 0.02 10^3/uL (0.00-0.03); Immature Granulocytes Pct Auto 0.2 % (0.0-0.5); Lymphocytes Absolute Auto 3.1 10^3/uL (1.2-3.8); Lymphocytes Percent Auto 35.6 % (20.5-60.0); Mean Corpuscular HGB Conc 34.8 g/dL (29.9-35.2); Mean Corpuscular Hemoglobin 33.5 pg (26.7-34.0); Mean Corpuscular Volume 96.1 fL (81.0-99.0); Mean Platelet Volume 10.2 fL (9.5-13.5); Monocytes Absolute Auto 0.9 10^3/uL (0.3-0.8); Monocytes Percent Auto 10.5 % (1.7-12.0); Neutrophils Absolute Auto 4.3 10^3/uL (1.4-6.5); Neutrophils Percent Auto 49.3 % (43.0-75.0); Platelet Count 275 10^3/uL (150-450); Red Blood Count 4.36 10^6/uL (4.20-5.40); Red Cell Distribution Width 12.7 % (11.0-15.0); White Blood Count 8.6 10^3/uL (4.0-11.0)
[2022-11-19 22:45] LABS: Anion Gap 13.4
[2022-11-19 22:47] LABS: Alanine Aminotransferase 21 U/L (14-59); Albumin Globulin Ratio 1.1; Albumin Level 3.7 g/dL (3.4-5.0); Alkaline Phosphatase 137 U/L (46-116); Aspartate Amino Transferase 26 U/L (15-37); BUN Creatinine Ratio 10.5; Bilirubin Total 0.3 mg/dL (0.2-1.0); Calcium 9.9 mg/dL (8.5-10.1); Carbon Dioxide 26.6 mmol/L (21.0-32.0); Chloride 106 mmol/L (98-107); Estimated GFR (African America >60 (>=60); Estimated GFR (Non-African Ame >60 (>=60); Globulin 3.4 g/dL; Glucose 115 mg/dL (74-106); Sodium 142 mmol/L (136-145); Total Protein 7.1 g/dL (6.4-8.2); Troponin I High Sensitivity <4.0 pg/mL (4.0-51.3)
[2022-11-19] MEDS: METHYLPREDNISOLONE SOD SUCC PF 125 MG/2 ML VIAL IVP (22:55)
--- NOTE | 2022-11-19 22:58 | ED.SOB1 ---
HPI - SOB/Dyspnea General Chief Complaint: Shortness of Breath/Dyspnea Stated Complaint: SHORTNESS OF BREATH Time Seen by Provider: 11/19/22 21:42 Source: patient Source comment: Mode of arrival: walk-in Limitations: no limitations History of Present Illness HPI Narrative: Patient is coming to us with progressively getting worse shortness of breath over the last 2 weeks she was admitted here almost 2 weeks ago for pancreatitis after which she mentioned that she started getting shortness of breath associated with cough productive of whitish sputum, no nausea no vomiting no chest pain or abdominal pain She admits of smoking less than 1 pack of cigarettes per day The patient denies any other complaints or any exposure to anybody with similar symptoms Related Data Home Medications Medication Instructions Recorded Confirmed ergocalciferol (vitamin D2) 1,250 50,000 unit PO .weekly 08/27/22 08/27/22 mcg (50,000 unit) capsule (Vitamin D2) ejyymx-wlbwfuiu-jfkxbtg cap PO DAILY 08/27/22 6,000-19,000-30,000 unit capsule,delayed rel (Creon) Previous Rx's Medication Instructions Recorded oxycodone-acetaminophen 5 mg-325 1 tab PO Q6H PRN pain #10 tabs 08/27/22 mg tablet (Percocet) pantoprazole 40 mg tablet,delayed 40 mg PO DAILY #7 tabs 08/27/22 release (Protonix) promethazine 25 mg tablet 25 mg PO Q6H PRN nausea and 08/27/22 vomiting #12 tabs hydrocodone 5 mg-acetaminophen 325 1 tab PO Q6H PRN pain #8 tabs 10/14/22 mg tablet ondansetron 4 mg disintegrating 4 mg PO Q6H PRN nausea and 10/14/22 tablet vomiting #12 tabs sucralfate 1 gram tablet (Carafate) 1 g PO Q6H PRN abdominal pain #12 10/14/22 tabs albuterol sulfate 90 mcg/actuation 2 inh inhalation QID PRN shortness 11/20/22 aerosol inhaler (ProAir HFA) of breath or wheezing #8.5 grams doxycycline hyclate 100 mg capsule 100 mg PO BID 7 days #14 caps 11/20/22 guaifenesin 600 mg tablet, 600 mg PO Q12H PRN cough #10 tabs 11/20/22 extended release 12 hr (Mucinex) prednisone 20 mg tablet 40 mg PO DAILY 5 days #10 tabs 11/20/22 Allergies Allergy/AdvReac Type Severity Reaction Status Date / Time ketorolac [From Toradol] AdvReac Severe Hives Verified 11/19/22 21:52 fentanyl AdvReac Intermediate Verified 11/19/22 21:52 haldol AdvReac Intermediate hives Uncoded 11/19/22 21:52 motrin AdvReac Intermediate hives Uncoded 11/19/22 21:52 tramadol AdvReac Intermediate hives Uncoded 11/19/22 21:52 pcn AdvReac Mild Uncoded 11/19/22 21:52 Review of Systems ROS Status of ROS 10 or more systems reviewed and unremarkable except as noted in history and below [facility] Social History Smoking status: Current every day smoker Exam Narrative Exam Narrative: Nurses notes and vital signs reviewed and patient is not hypoxic. General: Well-appearing and in no apparent distress. Skin: Warm, dry, no pallor noted. No rash. Head: Normocephalic, atraumatic. Neck: Supple, non-tender. Eye: Pupils are equal, round and EOMI. No scleral icterus. Ears, Nose, Mouth, and Throat: TM are clear, no nasal mucosal hypertrophy. Oral mucosa is moist, no posterior oropharynx erythema, uvula is mid-line Cardiovascular: Regular Rate and Rhythm without murmur, gallop or rub. Respiratory: No accessory muscle use or respiratory distress. Lungs there is distant breathing sound in both lung la with restricted airway and bilateral expiratory mild wheezes Chest Wall: no tenderness Back: No midline thoracic or lumbar vertebral tenderness. No CVA tenderness Musculoskeletal: normal ROM, no calf or popliteal tenderness, no lower extremity edema/swelling GI: Abdomen is soft, non-distended. Normal bowel sounds. No masses appreciated. No tenderness to palpation. No rebound, guarding, or rigidity noted. Neurological: A&O x4. No cranial nerve dysfunction observed. No truncal ataxia. Moves all extremities. Sensation intact. Psychiatric: Cooperative and interactive. Normal mood and affect. Constitutional Vital Signs, click to edit/add: Last Vital Signs Temp 98.2 F 11/19/22 21:47 Pulse 96 H 11/20/22 00:28 Resp 16 09/14/23 00:28 BP 124/78 11/20/22 00:28 Pulse Ox 97 11/20/22 00:28 O2 Del Method Room Air 11/20/22 00:28 O2 Flow Rate 3 11/19/22 22:06 Course Vital Signs Vital signs: Vital Signs Temperature 98.2 F 11/19/22 21:47 Pulse Rate 111 H 11/19/22 21:47 Respiratory Rate 48 H 11/19/22 21:47 Blood Pressure 142/79 H 11/19/22 21:47 Pulse Oximetry 97 11/19/22 21:47 Oxygen Delivery Method Nasal Cannula 11/19/22 21:47 Oxygen Delivery Flow Rate 2 11/19/22 21:47 Temperature 98.2 F 11/19/22 21:47 Pulse Rate 96 H 11/20/22 00:28 Respiratory Rate 16 11/20/22 00:28 Blood Pressure 124/78 11/20/22 00:28 Pulse Oximetry 97 11/20/22 00:28 Oxygen Delivery Method Room Air 11/20/22 00:28 Oxygen Delivery Flow Rate 3 11/19/22 22:06 MDM - SOB/Dyspnea MDM Narrative Medical decision making narrative: The patient presented to us tachypneic breathing about 30 and doing forward to using her accessory muscle although his saturation was above 94% she was placed on oxygen 2 L nasal cannula The patient received breathing treatment as well as Solu-Medrol CBC and chemistry showed no acute significant pathology and the chest x-ray was within normal EKG showing sinus rhythm with a heart rate of [address] elevation or depression Patient was feeling much better after treatment in the ER saturation is maintained within normal with no oxygen The patient was provided with albuterol inhaler to go home with in addition to doxycycline and prednisone and Mucinex The patient was instructed to come back to us in case of any symptoms or concerns Also instructed to avoid cigarette smoking The patient is to follow up with primary care physician in next 2-3 days or to return to the emergency department should any of the signs or symptoms worsen or new symptoms develop. The patient agrees with the following Diagnosis and Treatment plan and the patient will be discharged home. Lab Data Labs: Lab Results 11/19/22 11/19/22 Range/Units 22:04 23:03 WBC 8.6 (4.0-11.0) 10^3/uL RBC 4.36 (4.20-5.40) 10^6/uL Hgb 14.6 (12.0-16.0) g/dL Hct 41.9 (36.0-48.0) % MCV 96.1 (81.0-99.0) fL MCH 33.5 (26.7-34.0) pg MCHC 34.8 (29.9-35.2) g/dL RDW 12.7 (11.0-15.0) % Plt Count 275 (150-450) 10^3/uL MPV 10.2 (9.5-13.5) fL Neut % (Auto) 49.3 (43.0-75.0) % Lymph % (Auto) 35.6 (20.5-60.0) % [place] % (Auto) 10.5 (1.7-12.0) % Eos % (Auto) 3.6 (0.9-7.0) % Baso % (Auto) 0.8 (0.2-2.0) % Neut # (Auto) 4.3 (1.4-6.5) 10^3/uL Lymph # (Auto) 3.1 (1.2-3.8) 10^3/uL [place] # (Auto) 0.9 H (0.3-0.8) 10^3/uL Eos # (Auto) 0.3 (0.0-0.7) 10^3/uL Baso # (Auto) 0.1 (0.0-0.1) 10^3/uL Abs Immat Gran (auto) 0.02 (0.00-0.03) 10^3/uL Imm/Tot Granulo (auto) 0.2 (0.0-0.5) % PT 9.9 (9.0-11.6) sec INR 0.93 D-Dimer 0.35 (<=0.59) mg/L FEU Sodium 142 (136-145) mmol/L Potassium 4.0 (3.5-5.1) mmol/L Chloride 106 (98-107) mmol/L Carbon Dioxide 26.6 (21.0-32.0) mmol/L Anion Gap 13.4 BUN 10.0 (7.0-18.0) mg/dL Creatinine 0.95 (0.55-1.02) mg/dL Est GFR ( Amer) >60 (>=60) Est GFR (Non-Af Amer) >60 (>=60) BUN/Creatinine Ratio 10.5 Glucose 115 H (74-106) mg/dL Calcium 9.9 (8.5-10.1) mg/dL Total Bilirubin 0.3 (0.2-1.0) mg/dL AST 26 (15-37) U/L ALT 21 (14-59) U/L Alkaline Phosphatase 137 H (46-116) U/L Troponin I High Sens <4.0 L (4.0-51.3) pg/mL Total Protein 7.1 (6.4-8.2) g/dL Albumin 3.7 (3.4-5.0) g/dL Globulin 3.4 g/dL Albumin/Globulin Ratio 1.1 SARS-CoV-2 (PCR) Negative (NEGATIVE) Discharge Plan Discharge Chief Complaint: Shortness of Breath/Dyspnea Clinical Impression: COPD exacerbation Patient Disposition: Home, Self-Care Time of Disposition Decision: 00:09 Condition: Good Mode of Transportation: Private Vehicle Prescriptions / Home Meds: New prednisone 20 mg tablet 40 mg PO DAILY 5 Days Qty: 10 0RF guaifenesin [Mucinex] 600 mg tablet extended release 12hr 600 mg PO Q12H PRN (Reason: cough) Qty: 10 0RF doxycycline hyclate 100 mg capsule 100 mg PO BID 7 Days Qty: 14 0RF albuterol sulfate [ProAir HFA] 90 mcg/actuation HFA aerosol inhaler 2 inh inhalation QID PRN (Reason: shortness of breath or wheezing) Qty: 8.5 0RF No Action ergocalciferol (vitamin D2) [Vitamin D2] 1,250 mcg (50,000 unit) capsule 50,000 unit PO .weekly Creon 6,000-19,000 -30,000 unit capsule,delayed release(DR/EC) PO DAILY promethazine 25 mg tablet 25 mg PO Q6H PRN (Reason: nausea and vomiting) Qty: 12 0RF pantoprazole [Protonix] 40 mg tablet,delayed release (DR/EC) 40 mg PO DAILY Qty: 7 0RF oxycodone-acetaminophen [Percocet] 5-325 mg tablet 1 tab PO Q6H PRN (Reason: pain) Qty: 10 0RF hydrocodone-acetaminophen 5-325 mg tablet 1 tab PO Q6H PRN (Reason: pain) Qty: 8 0RF Rx Instructions: DX: R10.9 sucralfate [Carafate] 1 gram tablet 1 g PO Q6H PRN (Reason: abdominal pain) Qty: 12 0RF ondansetron 4 mg tablet,disintegrating 4 mg PO Q6H PRN (Reason: nausea and vomiting) Qty: 12 0RF Instructions: Emphysema (ED), COPD (Chronic Obstructive Pulmonary Disease) (ED) Stand Alone Forms: Portal Instructions Referrals: [facility] [Primary Care Provider] - 1 week Discharge Date/Time: 11/20/22 00:31
[2022-11-19 23:00] VITALS: PULSE 87
[2022-11-19 23:04] LABS: D Dimer 0.35 mg/L FEU (<=0.59); INR 0.93; Prothrombin Time 9.9 sec (9.0-11.6)
[2022-11-19 23:22] LABS: SARS-CoV-2 Ag NEGATIVE (NEGATIVE)
[2022-11-19 23:36] VITALS: PULSE 93; RESP 22; O2SAT 96
[2022-11-19 23:44] VITALS: PULSE 83; RESP 20; O2SAT 99
[2022-11-20 00:18] VITALS: PULSE 97
[2022-11-20] MEDS: ALBUTEROL SULFATE 200 PUFF/6.7 GM INHALER IH (00:18)
[2022-11-20] MEDS: DOXYCYCLINE MONOHYDRATE 100 MG CAPSULE PO (00:18)
[2022-11-20 00:28] VITALS: BP 124/78; PULSE 96; RESP 16; O2SAT 97
[2022-11-20 11:43] LABS: SARS-CoV-2 NAA NOT DETECTED (NOT DETECTE)
== END 2022-11-20 00:31 | disposition home or self-care (01) ==
PROVIDERS: Emergency Provider Emergency Medicine
DX: J44.1 Chronic obstructive pulmonary disease with (acute) exacerbation (principal); Z20.822 Contact with and (suspected) exposure to COVID-19; F17.210 Nicotine dependence, cigarettes, uncomplicated; Z79.899 Other long term (current) drug therapy
CPT/HCPCS: 36415; 71045; 80053; 84484; 85025; 85378; 85610; 87635; 87811; 93005; 94640; 96374; 99285; J2930; U0003

== ENCOUNTER 2022-12-24 04:55 | Emergency (ER) | payer OTHER, SELFPAY ==
[2022-12-24 04:58] VITALS: BP 155/93; PULSE 106; RESP 16; TEMP 36.7; O2SAT 99; BMI 23.8
--- NOTE | 2022-12-24 05:26 | PC.NURSE ---
Patient with history of chronic pancreatitis states she thinks she is having a flare up because of sx that include nausea, vomiting, epigastric abdominal pain. SHe has been taking phenergan and [place] at home with no relief.
--- NOTE | 2022-12-24 05:45 | ED.NAVMDI1 ---
HPI - Nausea/Vomiting/Diarrhea General Chief complaint: Nausea/Vomiting/Diarrhea Stated complaint: FLANK PAIN Time Seen by Provider: 12/24/22 05:31 Source: patient Mode of arrival: walk-in History of Present Illness HPI Narrative: patient has chronic pancreatitis. Presents complaining of pain for past 4 days that has progressed to worsening pain and recurrent vomiting. Denies hematemesis. Also has non bloody diarrhea. No fever. States not able to control her symptoms at home MD elicited complaint: Reports nausea, vomiting, diarrhea and abdominal pain Related Data Home Medications Medication Instructions Recorded Confirmed ergocalciferol (vitamin D2) 1,250 50,000 unit PO .weekly 08/27/22 12/24/22 mcg (50,000 unit) capsule (Vitamin D2) [id number]-jlyzmmao-ybitadh 2 cap PO BID 08/27/22 12/24/22 6,000-19,000-30,000 unit capsule,delayed rel (Creon) Previous Rx's Medication Instructions Recorded oxycodone-acetaminophen 5 mg-325 1 tab PO Q6H PRN pain #10 tabs 08/27/22 mg tablet (Percocet) promethazine 25 mg tablet 25 mg PO Q6H PRN nausea and 08/27/22 vomiting #12 tabs hydrocodone 5 mg-acetaminophen 325 1 tab PO Q6H PRN pain #8 tabs 10/14/22 mg tablet albuterol sulfate 90 mcg/actuation 2 inh inhalation QID PRN shortness 11/20/22 aerosol inhaler (ProAir HFA) of breath or wheezing #8.5 grams guaifenesin 600 mg tablet, 600 mg PO Q12H PRN cough #10 tabs 11/20/22 extended release 12 hr (Mucinex) Allergies Allergy/AdvReac Type Severity Reaction Status Date / Time ketorolac [From Toradol] AdvReac Severe Hives Verified 11/19/22 21:52 fentanyl AdvReac Intermediate Verified 11/19/22 21:52 haldol AdvReac Intermediate hives Uncoded 11/19/22 21:52 motrin AdvReac Intermediate hives Uncoded 11/19/22 21:52 tramadol AdvReac Intermediate hives Uncoded 11/19/22 21:52 pcn AdvReac Mild Uncoded 11/19/22 21:52 Review of Systems ROS Status of ROS 10 or more systems reviewed and unremarkable except as noted in history and below [facility] Social History Smoking status: Current every day smoker Exam Constitutional Vital Signs, click to edit/add: Last Vital Signs Temp 98.1 F 12/24/22 04:58 Pulse 106 H 12/24/22 04:58 Resp 16 12/24/22 04:58 BP 155/93 H 12/24/22 04:58 Pulse Ox 99 12/24/22 04:58 Common normals: no apparent distress, oriented x3, no limitations, healthy appearing and alert HENMT Common normals: normocephalic and head/scalp atraumatic Eye Common normals: EOMs intact bilaterally, conjunctivae normal and no scleral icterus Respiratory Common normals: normal respiratory effort, no retractions, no use of accessory muscles and clear to auscultation bilaterally Cardio Common normals: regular rate, regular rhythm, S1 normal heart sound and S2 normal heart sound GI Common normals: Normal to inspection, nondistended, normoactive bowel sounds present and soft to palpation Other: epigastric tenderness. no guarding Extremity Common normals: normal to inspection and full ROM Neuro Common normals: oriented x3, CN's II-XII intact bilaterally, moves all extremities, no focal motor deficits and no sensory deficits noted Psych Appearance: grossly normal Course Vital Signs Vital signs: Vital Signs Temperature 98.1 F 12/24/22 04:58 Pulse Rate 106 H 12/24/22 04:58 Respiratory Rate 16 12/24/22 04:58 Blood Pressure 155/93 H 12/24/22 04:58 Pulse Oximetry 99 12/24/22 04:58 Temperature 98.1 F 12/24/22 04:58 Pulse Rate 106 H 12/24/22 04:58 Respiratory Rate 16 12/24/22 04:58 Blood Pressure 155/93 H 12/24/22 04:58 Pulse Oximetry 99 12/24/22 04:58 MDM - Nausea/Vomiting/Diarrhea MDM Narrative Medical decision making narrative: patient presents who has known history of chronic pancreatitis. Not able to control her pain and vomiting at home and now presents to the ER. No fever. Has epigastric pain. Workup initiated including IV hydration, labs , Phenergan and Dilaudid as well as abdominal xrays. care transferred to Dr Stinson at change of shift Lab Data Labs: Lab Results 12/24/22 Range/Units 05:10 WBC 10.8 (4.0-11.0) 10^3/uL RBC 4.16 L (4.20-5.40) 10^6/uL Hgb 13.9 (12.0-16.0) g/dL Hct 41.5 (36.0-48.0) % MCV 99.8 H (81.0-99.0) fL MCH 33.4 (26.7-34.0) pg MCHC 33.5 (29.9-35.2) g/dL RDW 12.8 (11.0-15.0) % Plt Count 232 (150-450) 10^3/uL MPV 10.5 (9.5-13.5) fL Neut % (Auto) 67.6 (43.0-75.0) % Lymph % (Auto) 18.3 L (20.5-60.0) % [place] % (Auto) 11.5 (1.7-12.0) % Eos % (Auto) 1.5 (0.9-7.0) % Baso % (Auto) 0.7 (0.2-2.0) % Neut # (Auto) 7.3 H (1.4-6.5) 10^3/uL Lymph # (Auto) 2.0 (1.2-3.8) 10^3/uL [place] # (Auto) 1.2 H (0.3-0.8) 10^3/uL Eos # (Auto) 0.2 (0.0-0.7) 10^3/uL Baso # (Auto) 0.1 (0.0-0.1) 10^3/uL Abs Immat Gran (auto) 0.04 H (0.00-0.03) 10^3/uL Imm/Tot Granulo (auto) 0.4 (0.0-0.5) % Discharge Plan Discharge Chief Complaint: Nausea/Vomiting/Diarrhea Clinical Impression: Chronic pancreatitis Patient Disposition: Still a Patient Prescriptions / Home Meds: No Action ergocalciferol (vitamin D2) [Vitamin D2] 1,250 mcg (50,000 unit) capsule 50,000 unit PO .weekly Creon 6,000-19,000 -30,000 unit capsule,delayed release(DR/EC) 2 cap PO BID promethazine 25 mg tablet 25 mg PO Q6H PRN (Reason: nausea and vomiting) Qty: 12 0RF oxycodone-acetaminophen [Percocet] 5-325 mg tablet 1 tab PO Q6H PRN (Reason: pain) Qty: 10 0RF hydrocodone-acetaminophen 5-325 mg tablet 1 tab PO Q6H PRN (Reason: pain) Qty: 8 0RF Rx Instructions: DX: R10.9 guaifenesin [Mucinex] 600 mg tablet extended release 12hr 600 mg PO Q12H PRN (Reason: cough) Qty: 10 0RF albuterol sulfate [ProAir HFA] 90 mcg/actuation HFA aerosol inhaler 2 inh inhalation QID PRN (Reason: shortness of breath or wheezing) Qty: 8.5 0RF Referrals: [facility] [Primary Care Provider] - 1 week
--- NOTE | 2022-12-24 05:58 | XR_ITS ---
The [address] [address] Patient Name: CHIOMA BOUDREAUX MRN: [id number] date: 1970 Sex: F Assigned Patient Location: ER Current Patient Location: ER Accession/Order Number: [id number] Exam Date: 12/24/2022 06:15 Report Date: 12/24/2022 06:38 At the request of: NICK COY Procedure: XR abdomen min 2V EXAM: XR abdomen min 2V HISTORY: abdominal pain COMPARISON: None. TECHNIQUE: 2 views of the abdomen were obtained. FINDINGS: Cholecystectomy clips are noted. There is a nonspecific bowel gas pattern without evidence of bowel obstruction. No intraperitoneal free air is seen. The imaged lung bases are clear. No acute osseous abnormality is seen. XR/XR abdomen min 2V IMPRESSION: 1. Nonspecific bowel gas pattern without evidence of bowel obstruction. Electronically authenticated by: Kimberly CHO Date: 12/24/2022 06:38
[2022-12-24 06:16] LABS: Basophils Absolute Auto 0.1 10^3/uL (0.0-0.1); Basophils Percent Auto 0.7 % (0.2-2.0); Eosinophils Absolute Auto 0.2 10^3/uL (0.0-0.7); Eosinophils Percent Auto 1.5 % (0.9-7.0); Hematocrit 41.5 % (36.0-48.0); Hemoglobin 13.9 g/dL (12.0-16.0); Immature Granulocytes Abs Auto 0.04 10^3/uL (0.00-0.03); Immature Granulocytes Pct Auto 0.4 % (0.0-0.5); Lymphocytes Percent Auto 18.3 % (20.5-60.0); Mean Corpuscular HGB Conc 33.5 g/dL (29.9-35.2); Mean Corpuscular Hemoglobin 33.4 pg (26.7-34.0); Mean Corpuscular Volume 99.8 fL (81.0-99.0); Mean Platelet Volume 10.5 fL (9.5-13.5); Monocytes Absolute Auto 1.2 10^3/uL (0.3-0.8); Monocytes Percent Auto 11.5 % (1.7-12.0); Neutrophils Absolute Auto 7.3 10^3/uL (1.4-6.5); Neutrophils Percent Auto 67.6 % (43.0-75.0); Platelet Count 232 10^3/uL (150-450); Red Blood Count 4.16 10^6/uL (4.20-5.40); Red Cell Distribution Width 12.8 % (11.0-15.0); White Blood Count 10.8 10^3/uL (4.0-11.0)
[2022-12-24] MEDS: PROMETHAZINE HCL 25 MG/ML VIAL 12.5 MG IV (06:45)
[2022-12-24] MEDS: 0.9 % SODIUM CHLORIDE 1,000 ML 999 ML IV (06:45)
[2022-12-24] MEDS: HYDROMORPHONE HCL 0.5 MG/0.5 ML SYRINGE IV (06:46)
[2022-12-24 06:54] LABS: Alanine Aminotransferase 8 U/L (14-59); Albumin Globulin Ratio 0.9; Albumin Level 3.7 g/dL (3.4-5.0); Alkaline Phosphatase 150 U/L (46-116); Amylase 102 U/L (25-115); Anion Gap 10.3; Aspartate Amino Transferase 17 U/L (15-37); BUN Creatinine Ratio 7.5; Bilirubin Total 0.2 mg/dL (0.2-1.0); Chloride 103 mmol/L (98-107); Estimated GFR (African America >60 (>=60); Estimated GFR (Non-African Ame >60 (>=60); Globulin 3.9 g/dL; Glucose 94 mg/dL (74-106); Potassium 3.3 mmol/L (3.5-5.1); Sodium 138 mmol/L (136-145); Total Protein 7.6 g/dL (6.4-8.2); Troponin I High Sensitivity <4.0 pg/mL (4.0-51.3)
[2022-12-24 07:19] LABS: Lactate/Lactic Acid 0.6 mmol/L (0.4-2.0)
[2022-12-24] MEDS: HYDROMORPHONE HCL 1 MG/ML CARTRIDGE IVP (07:33)
--- NOTE | 2022-12-24 07:55 | ED.GENADUL1 ---
HPI - General Adult General Chief complaint: Nausea/Vomiting/Diarrhea Stated complaint: FLANK PAIN Time Seen by Provider: 12/24/22 05:31 Source: patient Mode of arrival: walk-in History of Present Illness HPI narrative: the patient was initially seen by Dr. Odonnell and signed out to me after discussing the case with him thoroughly. Related Data Home Medications Medication Instructions Recorded Confirmed ergocalciferol (vitamin D2) 1,250 50,000 unit PO .weekly 08/27/22 12/24/22 mcg (50,000 unit) capsule (Vitamin D2) ffwasi-kqjxigjr-suxccha 2 cap PO BID 08/27/22 12/24/22 6,000-19,000-30,000 unit capsule,delayed rel (Creon) Previous Rx's Medication Instructions Recorded oxycodone-acetaminophen 5 mg-325 1 tab PO Q6H PRN pain #10 tabs 08/27/22 mg tablet (Percocet) promethazine 25 mg tablet 25 mg PO Q6H PRN nausea and 08/27/22 vomiting #12 tabs hydrocodone 5 mg-acetaminophen 325 1 tab PO Q6H PRN pain #8 tabs 10/14/22 mg tablet albuterol sulfate 90 mcg/actuation 2 inh inhalation QID PRN shortness 11/20/22 aerosol inhaler (ProAir HFA) of breath or wheezing #8.5 grams guaifenesin 600 mg tablet, 600 mg PO Q12H PRN cough #10 tabs 11/20/22 extended release 12 hr (Mucinex) Allergies Allergy/AdvReac Type Severity Reaction Status Date / Time ketorolac [From Toradol] AdvReac Severe Hives Verified 11/19/22 21:52 fentanyl AdvReac Intermediate Verified 11/19/22 21:52 haldol AdvReac Intermediate hives Uncoded 11/19/22 21:52 motrin AdvReac Intermediate hives Uncoded 11/19/22 21:52 tramadol AdvReac Intermediate hives Uncoded 11/19/22 21:52 pcn AdvReac Mild Uncoded 11/19/22 21:52 PFSH PFSH Social History Smoking status: Current every day smoker Exam Constitutional Vital Signs, click to edit/add: Last Vital Signs Temp 98.1 F 12/24/22 04:58 Pulse 106 H 12/24/22 04:58 Resp 16 12/24/22 04:58 BP 155/93 H 12/24/22 04:58 Pulse Ox 99 12/24/22 04:58 Course Vital Signs Vital signs: Vital Signs Temperature 98.1 F 12/24/22 04:58 Pulse Rate 106 H 12/24/22 04:58 Respiratory Rate 16 12/24/22 04:58 Blood Pressure 155/93 H 12/24/22 04:58 Pulse Oximetry 99 12/24/22 04:58 Temperature 98.1 F 12/24/22 04:58 Pulse Rate 106 H 12/24/22 04:58 Respiratory Rate 16 12/24/22 04:58 Blood Pressure 155/93 H 12/24/22 04:58 Pulse Oximetry 99 12/24/22 04:58 Medical Decision Making MDM Narrative Medical decision making narrative: The patient is feeling improved and her laboratory analysis is negative. She is comfortable being discharged home and she'll follow-up with her nurse chemical dependency in [place]. Treatment diagnosis and follow-up were discussed with the patient. Differential Diagnosis Differential Diagnosis: abdominal pain, chronic pancreatitis Lab Data Lab results reviewed: Yes I reviewed the patient's lab results Labs: Lab Results 12/24/22 12/24/22 Range/Units 05:10 06:29 WBC 10.8 (4.0-11.0) 10^3/uL RBC 4.16 L (4.20-5.40) 10^6/uL Hgb 13.9 (12.0-16.0) g/dL Hct 41.5 (36.0-48.0) % MCV 99.8 H (81.0-99.0) fL MCH 33.4 (26.7-34.0) pg MCHC 33.5 (29.9-35.2) g/dL RDW 12.8 (11.0-15.0) % Plt Count 232 (150-450) 10^3/uL MPV 10.5 (9.5-13.5) fL Neut % (Auto) 67.6 (43.0-75.0) % Lymph % (Auto) 18.3 L (20.5-60.0) % [place] % (Auto) 11.5 (1.7-12.0) % Eos % (Auto) 1.5 (0.9-7.0) % Baso % (Auto) 0.7 (0.2-2.0) % Neut # (Auto) 7.3 H (1.4-6.5) 10^3/uL Lymph # (Auto) 2.0 (1.2-3.8) 10^3/uL [place] # (Auto) 1.2 H (0.3-0.8) 10^3/uL Eos # (Auto) 0.2 (0.0-0.7) 10^3/uL Baso # (Auto) 0.1 (0.0-0.1) 10^3/uL Abs Immat Gran (auto) 0.04 H (0.00-0.03) 10^3/uL Imm/Tot Granulo (auto) 0.4 (0.0-0.5) % Sodium 138 (136-145) mmol/L Potassium 3.3 L (3.5-5.1) mmol/L Chloride 103 (98-107) mmol/L Carbon Dioxide 28.0 (21.0-32.0) mmol/L Anion Gap 10.3 BUN 7.0 (7.0-18.0) mg/dL Creatinine 0.93 (0.55-1.02) mg/dL Est GFR ( Amer) >60 (>=60) Est GFR (Non-Af Amer) >60 (>=60) BUN/Creatinine Ratio 7.5 Glucose 94 (74-106) mg/dL Lactate 0.6 (0.4-2.0) mmol/L Calcium 10.0 (8.5-10.1) mg/dL Total Bilirubin 0.2 (0.2-1.0) mg/dL AST 17 (15-37) U/L ALT 8 L (14-59) U/L Alkaline Phosphatase 150 H (46-116) U/L Troponin I High Sens <4.0 L (4.0-51.3) pg/mL Total Protein 7.6 (6.4-8.2) g/dL Albumin 3.7 (3.4-5.0) g/dL Globulin 3.9 g/dL Albumin/Globulin Ratio 0.9 Amylase 102 (25-115) U/L Lipase 103.0 H (16.0-77.0) U/L Discharge Plan Discharge Chief Complaint: Nausea/Vomiting/Diarrhea Clinical Impression: Chronic pancreatitis, Abdominal pain Patient Disposition: Home, Self-Care Time of Disposition Decision: 07:55 Condition: Good Mode of Transportation: Private Vehicle Prescriptions / Home Meds: No Action ergocalciferol (vitamin D2) [Vitamin D2] 1,250 mcg (50,000 unit) capsule 50,000 unit PO .weekly Creon 6,000-19,000 -30,000 unit capsule,delayed release(DR/EC) 2 cap PO BID promethazine 25 mg tablet 25 mg PO Q6H PRN (Reason: nausea and vomiting) Qty: 12 0RF oxycodone-acetaminophen [Percocet] 5-325 mg tablet 1 tab PO Q6H PRN (Reason: pain) Qty: 10 0RF hydrocodone-acetaminophen 5-325 mg tablet 1 tab PO Q6H PRN (Reason: pain) Qty: 8 0RF Rx Instructions: DX: R10.9 guaifenesin [Mucinex] 600 mg tablet extended release 12hr 600 mg PO Q12H PRN (Reason: cough) Qty: 10 0RF albuterol sulfate [ProAir HFA] 90 mcg/actuation HFA aerosol inhaler 2 inh inhalation QID PRN (Reason: shortness of breath or wheezing) Qty: 8.5 0RF Instructions: Abdominal Pain (ED) Stand Alone Forms: Portal Instructions Referrals: [facility] [Primary Care Provider] - 1 week
== END 2022-12-24 08:15 | disposition home or self-care (01) ==
PROVIDERS: Internal Medicine; Emergency Provider Emergency Medicine
DX: K86.1 Other chronic pancreatitis (principal); R10.9 Unspecified abdominal pain; Z79.899 Other long term (current) drug therapy; F17.210 Nicotine dependence, cigarettes, uncomplicated
CPT/HCPCS: 36415; 74019; 80053; 82150; 83605; 83690; 84484; 85025; 96361; 96374; 96375; 96376; 99284; J1170

== ENCOUNTER 2023-01-16 11:14 | Emergency (ER) | payer OTHER, SELFPAY ==
[2023-01-16 11:17] VITALS: BP 152/86; PULSE 97; RESP 16; TEMP 36.6; O2SAT 99; BMI 23.8
--- NOTE | 2023-01-16 11:34 | ED.GENADUL1 ---
HPI - General Adult General Chief complaint: Abdominal Pain Stated complaint: ABDOMINAL PAIN Time Seen by Provider: 01/16/23 11:31 Source: patient Mode of arrival: walk-in History of Present Illness HPI narrative: Patient is a [age] female who is presenting to the Emergency Room with acute on chronic midepigastric pain. Patient has a history of chronic pancreatitis. Patient does have specialist at the [facility] did help with different modalities and therapies for her chronic pancreatitis. Patient does have nerve blocks and injections to help with her chronic pain. Patient does take acid reflux medicine daily. is at bedside. Patient has been having intermittent nausea and vomiting through the week, midepigastric pain started 2 or 3 days ago. Patient has no bilious or hematemesis vomiting. She has no melena or hematochezia. Patient is here because the pain is getting worse and she has nothing at home for pain. Patient does use Phenergan at home for pain, she does have Phenergan suppositories as well. No fever or chills. No chest pain or shortness of breath. No other acute complaints. Patient sees [facility] in [place] for PCP. . All systems are negative except as noted/marked. All systems reviewed and otherwise negative. . Nurses note and vital signs reviewed and patient is not hypoxic. General: The patient appears well and in no apparent distress. Patient is resting comfortably on cart. Patient is not toxic, lethargic, or listless Skin: Warm, dry, no pallor noted. There is no rash noted. No petechiae, purpura. Head: Normocephalic, atraumatic Eye: Normal conjunctiva, no drainage, EOMI. PERRL Ears, Nose, Mouth, and Throat: oral mucosa is moist. Nares patent. Mouth without vesicles. Cardiovascular: Regular Rate and Rhythm, no murmur, gallop, rub Respiratory: Patient is in no distress, no accessory muscle use, lungs are clear to auscultation, no wheezing, rales or rhonchi Back: non-tender, no CVA tenderness bilaterally to percussion. No CT LS midline pain GI: soft, Mild midepigastric tenderness to palpation, no pain to the right or left upper quadrant, no flank pain bilateral, otherwise tenderness to palpation, no masses appreciated. No rebound, guarding, or rigidity noted. No flank pain bilateral, No distention Musculoskeletal: Patient has full range of motion of all of the extremities, no motor, sensory, or focal neurological deficits Neurological: A&O x3, normal speech Psychiatric: Cooperative Related Data Home Medications Medication Instructions Recorded Confirmed ergocalciferol (vitamin D2) 1,250 50,000 unit PO .weekly 08/27/22 12/24/22 mcg (50,000 unit) capsule (Vitamin D2) fjuwss-uhjnqocd-nwbkoge 2 cap PO BID 08/27/22 12/24/22 6,000-19,000-30,000 unit capsule,delayed rel (Creon) Previous Rx's Medication Instructions Recorded oxycodone-acetaminophen 5 mg-325 1 tab PO Q6H PRN pain #10 tabs 08/27/22 mg tablet (Percocet) promethazine 25 mg tablet 25 mg PO Q6H PRN nausea and 08/27/22 vomiting #12 tabs hydrocodone 5 mg-acetaminophen 325 1 tab PO Q6H PRN pain #8 tabs 10/14/22 mg tablet albuterol sulfate 90 mcg/actuation 2 inh inhalation QID PRN shortness 11/20/22 aerosol inhaler (ProAir HFA) of breath or wheezing #8.5 grams guaifenesin 600 mg tablet, 600 mg PO Q12H PRN cough #10 tabs 11/20/22 extended release 12 hr (Mucinex) hydrocodone 5 mg-acetaminophen 325 1 tab PO Q4H PRN pain #6 tabs 01/16/23 mg tablet Allergies Allergy/AdvReac Type Severity Reaction Status Date / Time ketorolac [From Toradol] AdvReac Severe Hives Verified 11/19/22 21:52 fentanyl AdvReac Intermediate Verified 11/19/22 21:52 haldol AdvReac Intermediate hives Uncoded 11/19/22 21:52 motrin AdvReac Intermediate hives Uncoded 11/19/22 21:52 tramadol AdvReac Intermediate hives Uncoded 11/19/22 21:52 pcn AdvReac Mild Uncoded 11/19/22 21:52 PFSH PFSH Social History Smoking status: Current every day smoker Exam Constitutional Vital Signs, click to edit/add: Last Vital Signs Temp 97.8 F 01/16/23 11:17 Pulse 79 01/16/23 12:27 Resp 18 01/16/23 12:27 BP 143/97 H 01/16/23 12:27 Pulse Ox 98 01/16/23 12:27 O2 Del Method Room Air 01/16/23 11:17 Course Vital Signs Vital signs: Vital Signs Temperature 97.8 F 01/16/23 11:17 Pulse Rate 97 H 01/16/23 11:17 Respiratory Rate 16 01/16/23 11:17 Blood Pressure 152/86 H 01/16/23 11:17 Pulse Oximetry 99 01/16/23 11:17 Oxygen Delivery Method Room Air 01/16/23 11:17 Temperature 97.8 F 01/16/23 11:17 Pulse Rate 79 01/16/23 12:27 Respiratory Rate 18 01/16/23 12:27 Blood Pressure 143/97 H 01/16/23 12:27 Pulse Oximetry 98 01/16/23 12:27 Oxygen Delivery Method Room Air 01/16/23 11:17 Medical Decision Making MDM Narrative Medical decision making narrative: Patient's lab work shows no acute findings. Patient has multiple drug ALLERGIES. Patient was given Bentyl, Pepcid along with IV fluids. Patient's lipase is normal. Patient was given one [place] at discharge. Patient was sent home with 6 [place], and told to follow-up and call her pancreas specialist at [facility] and symptoms are not improving next 2 or 3 days. No indication for admission. No questions at discharge. Lab Data Labs: Lab Results 01/16/23 01/16/23 Range/Units 11:53 12:21 WBC 6.8 (4.0-11.0) 10^3/uL RBC 4.33 (4.20-5.40) 10^6/uL Hgb 14.2 (12.0-16.0) g/dL Hct 43.0 (36.0-48.0) % MCV 99.3 H (81.0-99.0) fL MCH 32.8 (26.7-34.0) pg MCHC 33.0 (29.9-35.2) g/dL RDW 12.4 (11.0-15.0) % Plt Count 189 (150-450) 10^3/uL MPV 10.3 (9.5-13.5) fL Neut % (Auto) 60.2 (43.0-75.0) % Lymph % (Auto) 28.4 (20.5-60.0) % [place] % (Auto) 8.8 (1.7-12.0) % Eos % (Auto) 1.6 (0.9-7.0) % Baso % (Auto) 0.9 (0.2-2.0) % Neut # (Auto) 4.1 (1.4-6.5) 10^3/uL Lymph # (Auto) 1.9 (1.2-3.8) 10^3/uL [place] # (Auto) 0.6 (0.3-0.8) 10^3/uL Eos # (Auto) 0.1 (0.0-0.7) 10^3/uL Baso # (Auto) 0.1 (0.0-0.1) 10^3/uL Abs Immat Gran (auto) 0.01 (0.00-0.03) 10^3/uL Imm/Tot Granulo (auto) 0.1 (0.0-0.5) % Sodium 134 L (136-145) mmol/L Potassium 4.0 (3.5-5.1) mmol/L Chloride 103 (98-107) mmol/L Carbon Dioxide 27.3 (21.0-32.0) mmol/L Anion Gap 7.7 BUN 8.0 (7.0-18.0) mg/dL Creatinine 0.79 (0.55-1.02) mg/dL Est GFR ( Amer) >60 (>=60) Est GFR (Non-Af Amer) >60 (>=60) BUN/Creatinine Ratio 10.1 Glucose 90 (74-106) mg/dL Lactate 0.6 (0.4-2.0) mmol/L Calcium 9.6 (8.5-10.1) mg/dL Total Bilirubin 0.2 (0.2-1.0) mg/dL AST 17 (15-37) U/L ALT <6 L (14-59) U/L Alkaline Phosphatase 126 H (46-116) U/L Troponin I High Sens 5.1 (4.0-51.3) pg/mL Total Protein 7.4 (6.4-8.2) g/dL Albumin 3.8 (3.4-5.0) g/dL Globulin 3.6 g/dL Albumin/Globulin Ratio 1.1 Lipase 54.0 (16.0-77.0) U/L Urine Color Lt. yellow (YELLOW) Urine Clarity Clear (CLEAR) Urine pH 6.0 (5.0-9.0) Ur Specific [place] <=1.005 A (1.005-1.025) Urine Protein Negative (NEG/TRACE) mg/dL Urine Glucose (UA) Negative (NEGATIVE) mg/dL Urine Ketones Negative (NEGATIVE) mg/dL Urine Occult Blood Negative (NEGATIVE) Urine Nitrite Negative (NEGATIVE) Urine Bilirubin Negative (NEGATIVE) Urine Urobilinogen 0.2 (0.2-1.0) EU/dL Ur Leukocyte Esterase Negative (NEGATIVE) Urine RBC None seen (0-2) #/HPF Urine WBC None seen (NONE SEEN) #/HPF Ur Squamous Epith Cells Rare (NONE/RARE) #/LPF Urine Bacteria None seen (NONE SEEN) #/HPF Urine Mucus None seen (NONE SEEN) Discharge Plan Discharge Chief Complaint: Abdominal Pain Clinical Impression: Nausea & vomiting, Abdominal pain Patient Disposition: Home, Self-Care Time of Disposition Decision: 13:29 Condition: Fair Prescriptions / Home Meds: New hydrocodone-acetaminophen 5-325 mg tablet 1 tab PO Q4H PRN (Reason: pain) Qty: 6 0RF No Action ergocalciferol (vitamin D2) [Vitamin D2] 1,250 mcg (50,000 unit) capsule 50,000 unit PO .weekly Creon 6,000-19,000 -30,000 unit capsule,delayed release(DR/EC) 2 cap PO BID promethazine 25 mg tablet 25 mg PO Q6H PRN (Reason: nausea and vomiting) Qty: 12 0RF oxycodone-acetaminophen [Percocet] 5-325 mg tablet 1 tab PO Q6H PRN (Reason: pain) Qty: 10 0RF hydrocodone-acetaminophen 5-325 mg tablet 1 tab PO Q6H PRN (Reason: pain) Qty: 8 0RF Rx Instructions: DX: R10.9 guaifenesin [Mucinex] 600 mg tablet extended release 12hr 600 mg PO Q12H PRN (Reason: cough) Qty: 10 0RF albuterol sulfate [ProAir HFA] 90 mcg/actuation HFA aerosol inhaler 2 inh inhalation QID PRN (Reason: shortness of breath or wheezing) Qty: 8.5 0RF Instructions: Acute Nausea and Vomiting (DC), Abdominal Pain (ED) Additional Instructions: Continue medication as prescribed at home. If symptoms continue, call your Pancreas specialists at [facility] Again to see if here appointment can be made sooner. Increase fluids at home. Stand Alone Forms: Portal Instructions [facility] - [facility] week Discharge Date/Time: 01/16/23 13:44
[2023-01-16] MEDS: FAMOTIDINE/PF 20 MG/2 ML VIAL IV (12:08)
[2023-01-16] MEDS: ONDANSETRON PF 4 MG/2 ML VIAL IV (12:08)
[2023-01-16] MEDS: DICYCLOMINE HCL 20 MG/2 ML VIAL IM (12:08)
[2023-01-16] MEDS: 0.9 % SODIUM CHLORIDE 1,000 ML 999 ML IV (12:09)
[2023-01-16] MEDS: lidocaine HCL 15 ML, MAG HYDROX/ALUMINUM HYD/SIMETH 30 ML, HYOSCYAMINE SULFATE 0.25 MG PO (12:09)
[2023-01-16 12:11] LABS: Basophils Absolute Auto 0.1 10^3/uL (0.0-0.1); Basophils Percent Auto 0.9 % (0.2-2.0); Eosinophils Absolute Auto 0.1 10^3/uL (0.0-0.7); Eosinophils Percent Auto 1.6 % (0.9-7.0); Hemoglobin 14.2 g/dL (12.0-16.0); Immature Granulocytes Abs Auto 0.01 10^3/uL (0.00-0.03); Immature Granulocytes Pct Auto 0.1 % (0.0-0.5); Lymphocytes Absolute Auto 1.9 10^3/uL (1.2-3.8); Lymphocytes Percent Auto 28.4 % (20.5-60.0); Mean Corpuscular Hemoglobin 32.8 pg (26.7-34.0); Mean Corpuscular Volume 99.3 fL (81.0-99.0); Mean Platelet Volume 10.3 fL (9.5-13.5); Monocytes Absolute Auto 0.6 10^3/uL (0.3-0.8); Monocytes Percent Auto 8.8 % (1.7-12.0); Neutrophils Absolute Auto 4.1 10^3/uL (1.4-6.5); Neutrophils Percent Auto 60.2 % (43.0-75.0); Platelet Count 189 10^3/uL (150-450); Red Blood Count 4.33 10^6/uL (4.20-5.40); Red Cell Distribution Width 12.4 % (11.0-15.0); White Blood Count 6.8 10^3/uL (4.0-11.0)
[2023-01-16 12:16] LABS: Lactate/Lactic Acid 0.6 mmol/L (0.4-2.0)
[2023-01-16 12:17] LABS: Albumin Globulin Ratio 1.1; Albumin Level 3.8 g/dL (3.4-5.0); Alkaline Phosphatase 126 U/L (46-116); Anion Gap 7.7; Aspartate Amino Transferase 17 U/L (15-37); BUN Creatinine Ratio 10.1; Bilirubin Total 0.2 mg/dL (0.2-1.0); Calcium 9.6 mg/dL (8.5-10.1); Carbon Dioxide 27.3 mmol/L (21.0-32.0); Chloride 103 mmol/L (98-107); Estimated GFR (African America >60 (>=60); Estimated GFR (Non-African Ame >60 (>=60); Globulin 3.6 g/dL; Glucose 90 mg/dL (74-106); Sodium 134 mmol/L (136-145); Total Protein 7.4 g/dL (6.4-8.2); Troponin I High Sensitivity 5.1 pg/mL (4.0-51.3)
[2023-01-16 12:18] LABS: Alanine Aminotransferase <6 U/L (14-59)
[2023-01-16 12:27] VITALS: BP 143/97; PULSE 79; RESP 18; O2SAT 98
[2023-01-16 12:36] LABS: Bilirubin Urine NEGATIVE (NEGATIVE); Blood Urine NEGATIVE (NEGATIVE); Clarity Urine CLEAR (CLEAR); Color Urine LT. YELLOW (YELLOW); Glucose Urine UA NEGATIVE (NEGATIVE); Ketones Urine NEGATIVE (NEGATIVE); Leukocyte Esterase Urine NEGATIVE (NEGATIVE); Nitrite Urine NEGATIVE (NEGATIVE); Protein Urine NEGATIVE (NEG/TRACE); Specific Gravity Urine <=1.005 (1.005-1.025); Urobilinogen Urine 0.2 EU/dL (0.2-1.0)
[2023-01-16 12:47] LABS: RBC Urine NONE SEEN #/HPF (0-2); WBC Urine NONE SEEN #/HPF (NONE SEEN)
[2023-01-16 12:48] LABS: Bacteria Urine NONE SEEN #/HPF (NONE SEEN); Mucus Urine NONE SEEN (NONE SEEN); Squamous Epithelial Cell Urine RARE #/LPF (NONE/RARE)
[2023-01-16] MEDS: HYDROCODONE/ACET 5-325 MG TABLET 1 TAB PO (13:41)
== END 2023-01-16 13:44 | disposition home or self-care (01) ==
PROVIDERS: Emergency Provider Emergency Medicine
DX: R10.9 Unspecified abdominal pain (principal); R11.2 Nausea with vomiting, unspecified; K86.1 Other chronic pancreatitis; Z79.899 Other long term (current) drug therapy; F17.210 Nicotine dependence, cigarettes, uncomplicated
CPT/HCPCS: 36415; 80053; 81001; 83605; 83690; 84484; 85025; 96361; 96372; 96374; 96375; 99284; J0500

== ENCOUNTER 2023-03-07 13:15 | Emergency (ER) | payer OTHER, SELFPAY ==
[2023-03-07] VITALS (17 sets, daily range): BP systolic 104–139; BP diastolic 74–92; PULSE 115; RESP 16; TEMP 37.2; O2SAT 88–100; BMI 23.8
--- OUTSIDE RECORDS SUMMARY | 2023-03-07 13:29 | XMS_ITS | CCD ---
Author Name Unknown Address [id number] [place] [address] Organization [facility] Care Team Providers Care Eyeglass Maker Name Role Phone LiElie Unavailable LIDARRICKWA Unavailable Unavailable COPC SACHIN, GENERIC Unavailable Unavailable COPC SACHIN, GENERIC Unavailable Unavailable RUPINDER NEGROI Unavailable Unavailable LI, KEWA Unavailable Unavailable JOANA MENDES Unavailable Unavailable LI, KEWA Unavailable Unavailable ERROL WALTON Unavailable Unavaila ble LI, KEWA Unavailable Unavailable KEERTHI NGUYEN Unavailable Unavailable COPC SACHIN, GENERIC Unavailable Unavailable KEERTHI NGUYEN Unavailable Unavailable LI, KEWA Unavailable Unavailable [facility], [facility] Unavailable Unav ailable EUGENIA SHELTON Unavailable Unavailable [facility], [facility] Unavailable Unav ailable Unavailable Primary Care Provider UnavailRAJEEV Pino Admitting Unavailable RAJEEV TINOCO Attending Unavailable LiDarrickwa Primary Care Provider Unavailable Primary Care Provider UnavailMarya Guajardo Unavailable NON STAFF Primary Care Provider UnavailDO Keaton Thompson Emergency Provider SALMA Amor Emergency Provider SALMA Lopez Emergency Provider Woodrow ALEXANDER, Pineda Espinal Unavailable [phone] [facility], Other Primary Care Provi mathew NON STAFF Primary Care Provider Unavailflorida Llanes MD Agustin Emergency Provider DR TRI HANSON Consulting Unavailable JANUSZ ., ARIC Attending Unavailable JANUSZ ., ARIC Admitting Unavailable [facility] Primary Care Unavailable JANUSZ ., ARIC Consulting Unavailable AGUSTIN MADRIGAL Consulting Unavailable YANNI FRASER Attending Unavailable YANNI FRASER Admitting Unavailable [facility] Primary Care Unavailable HEBERT MCPHERSON Consulting Unavailable AMINATA, DR RAJEEV Chan Consulting Unavailable AMINATA, DR RAJEEV Chan Attending Unavailable AMINATA, DR RAJEEV Chan Admitting Unavailable [facility] Primary Care Unavailable JANNY ., ANKIT BOYKIN Consulting Unavailabl e IGGY ., MONIK Attending Unavailable IGGY ., MONIK Admitting Unavailable GRECHNY ., PA [facility]CRETIA [facility]available ANNELIESE, NICK Consulting Unavailable JANUSZ ., ARIC Consulting Unavailable AGUSTIN HIGHTOWER Consulting Unavailable ROLAN EUCEDA Consulting Unavailable AMINATA, DR RAJEEV Chan Consulting Unavailable BRIANNA, DR SHARON Silveira Attending Unavailabl e REINECK, DR SHARON Silveira [facility] Unavailable BRIANNA, DR SHARON Silveira Consulting Unavailabl e HANS ., NAT Consulting Unavailable HANS ., NAT Consulting Unavailable PAY ., DR MACEDO Attending Unavailable PAY ., DR MACEDO Admitting Unavailable [facility] Primary Care Unavailable ANNELIESE, NICK Consulting Unavailable MARIAM COYYL Attending Unavailable ANNELIESE, NICK Admitting Unavailable [facility] Primary Care Unavailable MILADIS BARRERA Consulting Unavailable JANUSZ ., ARIC Attending Unavailable JANUSZ ., ARIC Admitting Unavailable JANUSZ ., ARIC Consulting Unavailable [facility] Primary Care Unavailable ION KRUSE Consulting Unavailable YANNI FRASER Attending Unavailable YANNI FRASER Admitting Unavailable JANNY ., ANKIT BOYKIN [facility]ing [facility] Unavailable LYNNE PERDOMO Consulting Unavailable JANUSZ ., ARIC Attending Unavailable JANUSZ ., ARIC Admitting Unavailable [facility] Primary Care Unavailable JANUSZ ., ARIC Consulting Unavailable DIAB ., ELENITA Consulting Unavailable DIAB ., ELENITA Attending Unavailable DIAB ., ELENITA Admitting Unavailable [facility] Primary Care Unavailable PAY ., DR MACEDO Consulting Unavailable PAY ., DR MACEDO Attending Unavailable PAY ., DR MACEDO Admitting Unavailable [facility] Primary Care Unavailable NICK COY Consulting Unavailable NICK COY Attending Unavailable NICK COY Admitting Unavailable [facility] Primary Care Unavailable AGUSTIN HIGHTOWER Consulting Unavailable AMINATA, DR RAJEEV Chan Consulting Unavailable TANVIR ., DR GRANT Attending Unavailable HAY ., DR GRANT Admitting Unavailable [facility] Primary Care Unavailable HAY ., DR GRANT Consulting Unavailable [facility], OTHER Primary Care Un available STEVE, SOMASHEKAR G Attending Unavailabl e STEVE, SOMASHEKAR G Referring Unavailabl e [facility], [facility] Primary Care Un available STEVE, SOMASHEKAR G Referring Unavailabl e [facility] OTHER Primary Care Un available STEVE, SOMASHEKAR G Referring Unavailabl e STEVE, SOMASHEKAR G Attending Unavailabl e [facility] OTHER Primary Care Un available STEVE, SOMASHEKAR G Referring Unavailabl e STEVE, SOMASHEKAR G Attending Unavailabl e STEVE, SOMASHEKAR G Attending Unavailabl e [facility] OTHER Primary Care Un available STEVE, SOMASHEKAR G Referring Unavailabl e [facility] Primary Care Un available [facility] Referring Un available STEVE, SOMASHEKAR G Attending Unavailabl e NON STAFF Primary Care Provider UnavailALEA Stewart Emergency Provider [phone] Robb Burris Admitting Unavailable Robb Burris Attending Unavailable NON STAFF Primary Care Unavailable Agustin Llanes Admitting Unavailable Agustin Llanes Attending Unavailable NON STAFF Primary Care Unavailable Nicole Posadas Admitting Unavailable Nicole Posadas Attending Unavailable NON STAFF Primary Care Unavailable Allergies Allergy Classification Reported Allergen(s) Allergy Type Date of Onset Reaction(s) Facility (16 sources) haloperidol; Translations: [HALOPERIDOL] Propensity to adverse reactions to drug 06-02-19 16 Hives [facility] (19 sources) ibuprofen; Translations: [IBUPROFEN] Propensity to adverse reactions to drug 10-31-19 13 Hives, Swelling [facility] (6 sources) metoclopramide; Translations: [METOCLOPRAMIDE HCL] Propensity to adverse reactions to drug 07-01-19 17 [facility] (6 sources) penicillin g; Translations: [PENICILLIN G] Propensity to adverse reactions to drug 07-25-19 15 Anaphylaxis [facility] (19 sources) traMADol; Translations: [TRAMADOL] Propensity to adverse reactions to drug 07-25-19 15 [facility] (17 sources) morphine; Translations: [MORPHINE] Drug Allergy 07-16-19 18 [facility] (2 sources) Enoxaparin Drug Allergy 08-23-19 20 Itching, Rash [place], [place] (2 sources) Haloperidol Drug Allergy 10-20-19 18 Swelling [place], [place] (12 sources) Penicillins Propensity to adverse reactions to drug 10-31-19 13 Anaphylaxis, Swelling [place] (2 sources) Haloperidol; Translations: [Haldol] Drug Allergy 08-10-19 19 Unknown [facility] (6 sources) fentaNYL; Translations: [Fentanyl] Drug Allergy 12-14-19 21 [facility] (5 sources) Ketorolac; Translations: [ketorolac] Drug Allergy 09-26-19 22 [facility] (6 sources) Ketorolac Drug Allergy 12-17-19 22 Hives, Itching [facility] (6 sources) Metoclopramide Drug Allergy 07-20-19 17 Anxiety [facility] (1 source) Ibuprofen Drug Allergy 01-09-20 13 [facility] (1 source) Ketorolac Drug Allergy [facility] (1 source) Morphine Drug Allergy 08-10-19 19 [facility] (1 source) Penicillins Drug allergy (disorder) 01-09-20 13 [facility] (1 source) traMADol Drug Allergy 01-09-20 13 [facility] (1 source) Haloperidol Drug Allergy 11-10-[address] [facility] (1 source) Ibuprofen Drug Allergy 11-10-19 [facility] (1 source) Morphine Drug Allergy 11-10-19 [facility] (1 source) Penicillins Drug allergy (disorder) 11-10-19 [facility] (1 source) traMADol Drug Allergy 11-10-19 [facility] Medications Current Medications Medication Drug Class(es) Dates Sig (Normalized) Sig (Original) Acetaminophen (1 source) Start: 08-23-2019 acetaminophen (TYLENOL) tablet 650 mg amylase 570549 unt / lipase 59397 unt / protease 79877 unt delayed release oral capsule (8 sources) Start: 12-16-2021 End: 07-16-2022 take 07656-61950 capsules by mouth three times daily Aqksix-Wiuqredk-Rud lase (Creon) 24,000-76,000 -120,000 unit capsule,delayed release(DR/EC) Active 2 CAP PO Three times daily December 19, 2021 12:00am dicyclomine hydrochloride 10 mg oral capsule (11 sources) Anticholinergic Start: 11-09-2022 take 10 mg by mouth three times daily Dicyclomine Active 10 MG PO Three times daily November 09, 2022 12:00am Start: 09-25-2021 End: 10-04-2021 take 20 mg by mouth four times daily Dicyclomine Discontinued 20 MG PO Four times daily September 25, 2021 12:00am October 04, 2021 3:17pm Start: 03-04-2018 dicyclomine (B ENTYL) injection 20 mg Start: 08-24-2017 End: 08-24-2017 dicyclomine (BENTYL) injecti on 20 mg Start: 08-24-2017 End: 09-03-2017 take 1 capsule by mouth three times daily as needed dicyclomine (BENTYL) 10 MG capsule Take 1 (one) capsule (10 mg total) by mouth 3 (three) times a day as needed. 30 capsule 0 08/24/2017 Active ergocalciferol 1.25 mg oral capsule (4 sources) Provitamin D2 Compound Start: 01-28-2022 End: 03-19-2022 take 1 capsule by mouth every week ergocalciferol 1.25 MG (41772 UT) capsule Take 1 capsule by mouth once a week for 8 doses. 8 capsule 0 01/28/2022 Active 1 ml HYDROmorphone hydrochloride 1 mg/ml cartridge (8 sources) Opioid Agonist Start: 08-12-2022 End: 08-12-2022 HYDROmorphone (DILAUDID) injection 0.5 mg Start: 03-26-2020 End: 03-26-2020 HYDROmorphone (DILAUDID) inj ection 1 mg Start: 08-24-2019 HYDROmorphone (DILAUDID) injection 0.5 mg Start: 08-23-2019 End: 08-24-2019 HYDROmorphone (DILAUDID) inj ection 0.25 mg Start: 05-14-2017 End: 05-15-2017 take 0.5 mg intravenous route every four hours as needed HYDROmorphone (DILAUDID) injection 0.5 mg Reserve (No Known Home Meds) (1 source) Start: 10-09-2021 Reserve (No Kn own Home Meds) Active October 09, 2021 12:00am omeprazole 20 mg delayed release oral capsule (2 sources) Proton Pump Inhibitor Start: 06-16-2022 take 1 capsule by mouth once daily omeprazole [address] capsule Take 1 capsule by mouth daily. 30 capsule 06/16/2022 Active oxyCODONE hydrochloride 5 mg oral tablet (4 sources) Opioid Agonist Start: 03-22-2022 take 5 mg by mouth every four to six hours Oxycodone Active 5 MG PO EVERY 4-6 HOURS 12 09March 22, 2022 Start: 01-28-2022 End: 01-28-2022 oxyCODONE (ROXICODONE) table t 5 mg Start: 05-15-2017 End: 05-15-2017 take 1 tablet by mouth every four hours as needed oxyCODONE (ROXICODONE) immediate release tablet 5 mg polyethylene glycol 3350 16708 mg powder for oral solution (1 source) Osmotic Laxative Start: 08-22-2019 17 g, Oral, D AILY PRN, Constipation, Starting 08/22/19 at 1627 First line therapy for constipation promethazine hydrochloride 25 mg oral tablet (20 sources) Phenothiazine Start: 11-09-2022 take 25 mg by mouth three times daily Promethazine Active 25 MG PO Three times daily November 09, 2022 12:00am Start: 12-19-2021 take 25 mg by mouth every six hours Promethazine Active 25 MG PO Q6H December 19, 2021 12:00am Start: 09-25-2021 End: 10-04-2021 take 25 mg by mouth four times daily Promethazine Discontinued 25 MG PO Four times daily September 25, 2021 12:00am October 04, 2021 3:17pm Start: 08-11-2021 End: 09-25-2021 take 25 mg by mouth every six hours Promethazine Discontinued 25 MG PO Q6H August 11, 2021 12:00am September 25, 2021 8:51pm Start: 05-16-2020 End: 05-31-2020 take 1 tablet by mouth every four to six hours Promethazine (Phenergan) 12.5 mg Tablet Discontinued 12.5 MG PO EVERY 4-6 HOURS May 16, 2020 1:00am May 31, 2020 3:51pm Start: 08-22-2019 promethazine ( PHENERGAN) tablet 12.5 mg Start: 08-22-2019 End: 08-22-2019 promethazine (PHENERGAN) inj ection 12.5 mg Start: 07-05-2019 End: 03-28-2020 take 25 mg by mouth every six hours Promethazine Discontinued 25 MG PO Q6H July 05, 2019 12:00am March 28, 2020 4:50pm Start: 08-24-2017 End: 08-24-2017 promethazine (PHENERGAN) sup pository 25 mg End: 05-14-2017 take 1 tablet by mouth every six hours as needed promethazine (PHENERGAN) 25 MG tablet Take 25 mg by mouth every 6 (six) hours as needed for nausea. 05/14/2017 Discontinued Completed/Discontinued Medications Medication Drug Class(es) Dates Sig (Normalized) Sig (Original) acetaminophen 325 mg / HYDROcodone bitartrate 5 mg oral tablet (8 sources) Opioid Agonist Start: 10-08-2020 End: 11-20-2020 take 1 tablet by mouth every four to six hours Hydrocodone-Acetami nophen Discontinued 1 TAB PO EVERY 4-6 HOURS 6 October 08, 2020 November 20, 2020 6:23pm Start: 04-19-2020 End: 05-31-2020 take 1 tablet by mouth every six hours Hydrocodone-Acetaminophen Discontinued 1 TAB PO Q6H 10 April 19, 2020 May 31, 2020 3:51pm acetaminophen 325 mg / oxyCODONE hydrochloride 5 mg oral tablet (8 sources) Opioid Agonist Start: 10-04-2021 End: 10-09-2021 take 1 tablet by mouth every six hours Oxycodone-Acetaminophen (Percocet) 5-325 mg tablet Discontinued 1 TAB PO Q6H 10 3 October 04, 2021 October 09, 2021 2:19pm Start: 03-28-2020 End: 04-19-2020 take 1 tablet by mouth every six hours Oxycodone-Acetaminophen (Percocet) 5-325 mg tablet Discontinued 1 TAB PO Q6H 10 3 March 28, 2020 April 19, 2020 7:36pm Start: 08-24-2017 End: 08-24-2017 oxyCODONE-acetaminophen (PER COCET) 5-325 mg per tablet 1 tablet amitriptyline hydrochloride 25 mg oral tablet (10 sources) Tricyclic Antidepressant Start: 09-25-2021 End: 10-04-2021 take 25 mg by mouth once daily Amitriptyline Discontinued 25 MG PO Daily September 25, 2021 12:00am October 04, 2021 3:17pm Start: 12-01-2019 take 2.5 tablets by mouth at bedtime amitriptyline 10 MG tablet Take 2.5 tablets by mouth at bedtime. 30 tablet 12/01/2019 Active bisacodyl 10 mg rectal suppository (1 source) Stimulant Laxative Start: 08-24-2019 End: 08-24-2019 bisacodyl (DULCOLAX) suppository 10 mg bupivacaine hydrochloride 2.5 mg/ml injectable solution (2 sources) Amide Local Anesthetic Start: 08-12-2022 End: 08-12-2022 Bupivacaine (MARCAINE) injection 50 mg Start: 01-28-2022 End: 01-28-2022 bupivacaine (MARCAINE) injec tion 50 mg 1 ml diphenhydrAMINE hydrochloride 50 mg/ml cartridge (1 source) Histamine-1 Receptor Antagonist Start: 08-23-2019 End: 08-23-2019 diphenhydrAMINE (BENADRYL) injection 25 mg 0.4 ml enoxaparin sodium 100 mg/ml prefilled syringe (2 sources) Low Molecular Weight Heparin Start: 08-22-2019 End: 08-23-2019 inject 40 mg by subcutaneous injection once daily 40 mg, Subcutaneous, DAILY, First dose on Thu08/22/19 at 1645 Start: 05-14-2017 End: 05-15-2017 enoxaparin (LOVENOX) syringe 40 mg famotidine 20 mg oral tablet (8 sources) Histamine-2 Receptor Antagonist Start: 09-25-2021 End: 10-04-2021 take 20 mg by mouth once daily Famotidine Discontinued 20 MG PO Daily September 25, 2021 12:00am October 04, 2021 3:17pm Start: 03-04-2018 End: 03-04-2018 famotidine (PEPCID) injectio n 20 mg Start: 05-14-2017 End: 05-15-2017 take 1 tablet by sachin once daily famotidine (PEPCID) 20 MG tablet Take 20 mg by mouth daily . 0 Active 2 ml fentaNYL 0.05 mg/ml injection (4 sources) Opioid Agonist Start: 03-26-2020 End: 03-26-2020 fentaNYL (SUBLIMAZE) injection 50 mcg Start: 08-22-2019 End: 08-22-2019 fentaNYL (SUBLIMAZE) injecti on 50 mcg Start: 03-04-2018 End: 03-04-2018 fentaNYL (SUBLIMAZE) inj syr pilar 50 mcg Start: 05-14-2017 End: 05-14-2017 fentaNYL (SUBLIMAZE) injecti on 50 mcg iopamidol (2 sources) Radiographic Contrast Agent Start: 08-24-2017 End: 08-24-2017 iopamidol (ISOVUE-370) 76 % injection 75 mL Start: 05-14-2017 End: 05-14-2017 iopamidol (ISOVUE-370) 76 % injection 75 mL iopamidol (ISOVUE-370) 76 % injection 75 mL (1 source) Start: 03-26-2020 End: 03-26-2020 iopamidol (ISOVUE-370) 76 % injection 75 mL 1 ml ketorolac tromethamine 30 mg/ml injection (1 source) Nonsteroidal Anti-inflammatory Drug, Cyclooxygenase Inhibitor Start: 08-24-2017 End: 08-24-2017 ketorolac (TORADOL) injection 30 mg mirtazapine 15 mg oral tablet (6 sources) Start: 12-01-2019 End: 12-16-2021 take 15 mg by mouth at bedtime Mirtazapine Discontinued 15 MG PO Bedtime March 28, 2020 1:00am May 31, 2020 3:51pm End: 05-14-2017 take 1 tablet by mouth once mirtazapine (REMERON) 15 M G tablet Take 15 mg by mouth nightly. 05/14/2017 Discontinued morphine sulfate 15 mg oral tablet (1 source) Opioid Agonist Start: 06-09-2017 End: 06-09-2017 morphine (MSIR) tablet 15 mg naloxone (NARCAN) injection 0.1 mg (1 source) Start: 05-15-2017 End: 05-15-2017 naloxone (NARCAN) injection 0.1 mg ondansetron 4 mg disintegrating oral tablet (20 sources) Serotonin-3 Receptor Antagonist Start: 10-04-2021 End: 10-09-2021 take 4 mg by mouth four times daily Ondansetron Discontinued 4 MG PO Four times daily October 04, 2021 12:00am October 09, 2021 2:19pm Start: 10-08-2020 End: 11-20-2020 Ondansetron Discontinued 4 M G PO every 6 to 8 hours October 08, 2020 12:00am November 20, 2020 6:23pm Start: 04-19-2020 End: 05-16-2020 take 4 mg by mouth four times daily Ondansetron Discontinued 4 MG PO Four times daily April 19, 2020 1:00am May 16, 2020 9:59am Start: 03-28-2020 End: 05-16-2020 take 4 mg by mouth every six hours Ondansetron Discontinued 4 MG PO Q6H March 28, 2020 1:00am May 16, 2020 9:59am Start: 03-04-2018 take 1 tablet by sachin th every eight hours as needed ondansetron (ZOFRAN ODT) 4 MG disintegrating tablet Dissolve 1 (one) tablet (4 mg total) on top of tongue every 8 (eight) hours as needed for nausea . 12 tablet 0 03/04/2018 Active Start: 03-04-2018 End: 03-04-2018 ondansetron (ZOFRAN) injecti on 4 mg Start: 08-24-2017 End: 08-24-2017 ondansetron (ZOFRAN-ODT) disintegrating tablet 4 mg Start: 08-24-2017 End: 08-27-2017 take 1 tablet by mouth every six hours as needed ondansetron (ZOFRAN) 4 MG tablet Take 1 (one) tablet (4 mg total) by mouth every 6 (six) hours as needed for nausea. 15 tablet 0 08/24/2017 Active Start: 06-09-2017 End: 06-09-2017 ondansetron (ZOFRAN) injecti on 4 mg Start: 05-14-2017 End: 05-14-2017 ondansetron (ZOFRAN) injecti on 4 mg 2 ml prochlorperazine 5 mg/ml injection (1 source) Phenothiazine Start: 05-14-2017 End: 05-15-2017 take 5 mg by intramuscular injection every six hours as needed 50 ml sodium chloride 9 mg/ml injection (13 sources) Start: 03-26-2020 End: 03-26-2020 0.9 % sodium chloride bolus Start: 08-22-2019 10 mL, Intrave nous, EVERY 12 HOURS SCHEDULED (2 times per day), First dose on Thu08/22/19 at 2100 Start: 08-22-2019 Intravenous, a t 75 mL/hr, CONTINUOUS, Starting Thu08/22/19 at 1645 Start: 08-22-2019 take 10 mL intraveno us route once as needed 10 mL, Intravenous, PRN, Line Care, After every IV line use, Starting Thu08/22/19 at 1627 Start: 08-22-2019 End: 08-22-2019 0.9 % sodium chloride bolus Start: 03-04-2018 End: 03-04-2018 sodium chloride 0.9% (NS) saray jannet 1,000 mL Start: 08-24-2017 End: 08-24-2017 sodium chloride (PF) (NS) fl ush 5 mL Start: 06-09-2017 End: 06-09-2017 sodium chloride 0.9% (NS) saray jannet 1,000 mL Start: 06-09-2017 End: 06-09-2017 sodium chloride (PF) (NS) fl ush 5 mL Start: 05-14-2017 End: 05-15-2017 Start: 05-14-2017 End: 05-15-2017 sodium chloride (PF) (NS) fl ush 5 mL 1 ml triamcinolone acetonide 40 mg/ml prefilled syringe (2 sources) Corticosteroid Start: 08-12-2022 End: 08-12-2022 triamcinolone (KENALOG-40) injection 80 mg Start: 01-28-2022 End: 01-28-2022 triamcinolone (KENALOG-40) i njection 80 mg Problems Active Problems Problem Classification Problem Date Documented Da te Episodic/Chronic Administrative/social admission (3 sources) Drug seeking behavior ; Translations: [Malingerer [conscious simulation]] 10-09-2021 Episodic Alcohol-related disorders (7 sources) History of alcohol abuse; Translations: [Alcohol abuse, in remission] Onset: 10-23-2014 10-23-2014 Chronic Appendicitis and other appendiceal conditions (1 source) Unspecified acute appendicitis; Translations: [UNSPECIFIED ACUTE APPENDICITIS] Onset: 03-21-2022 Episodic Biliary tract disease (1 source) Obstruction of bile duct; Translations: [OBSTRUCTION OF BILE DUCT] Onset: 04-01-2022 Chronic Mood disorders (11 sources) Bipolar disorder; Translations: [Depressive disorder] Onset: 09-07-2014 09-07-2014 Chronic Nausea and vomiting (20 sources) Nausea and vomiting; Translations: [Nausea with vomiting, unspecified] Onset: 08-30-2014 Resolved: 06-09-2016 11-30-2014 Episodic Osteoporosis (6 sources) Osteoporosis; Translations: [Other osteoporosis without current pathological fracture] Onset: 01-28-2022 Chronic Other aftercare (1 source) Other terminologist (current) drug therapy; Translations: [OTH CYBER OPERATOR CURRENT DRUG THERAPY] Onset: 04-01-2022 Episodic Other gastrointestinal disorders (11 sources) Diarrhea; Translations: [Diarrhea, unspecified] Onset: 06-30-2015 Resolved: 04-24-2016 07-06-2019 Episodic Other gastrointestinal disorders (4 sources) History of pancreatitis; Translations: [Personal history of other diseases of the digestive system] 08-11-2021 Episodic Other nervous system disorders (1 source) Chronic pain; Translations: [Other chronic pain] Chronic Other nervous system disorders (1 source) Other chronic pain; Translations: [OTHER CHRONIC PAIN] Onset: 12-09-2021 Chronic Pancreatic disorders (20 sources) Chronic pancreatitis; Translations: [Other chronic pancreatitis] Onset: 09-05-2014 Resolved: 06-26-2015 06-30-2016 Chronic Pancreatic disorders (20 sources) Alcohol-induced pancreatitis; Translations: [Acute pancreatitis] Onset: 06-05-2015 Resolved: 06-09-2016 06-30-2016 Episodic Pancreatic disorders (not diabetes) (6 sources) Acute pancreatitis without necrosis or infection, unspecified; Translations: [Other acute pancreatitis without necrosis or infection] Onset: 05-14-2017 03-08-2018 Regional enteritis and ulcerative colitis (1 source) Enteritis of small intestine Episodic Residual codes; unclassified (1 source) Acquired absence of other specified parts of digestive tract; Translations: [ACQ ABSENCE OTH PART DIGESTV TRACT] Onset: 06-17-2022 Episodic Residual codes; unclassified (1 source) Acquired absence of uterus with remaining cervical stump; Translations: [ACQ ABSENCE UTRUS REM CERV STUMP] Onset: 06-17-2022 Episodic Residual codes; unclassified (1 source) Procedure and treatment not carried out because of patient's decision for other reasons; Translations: [PROC AND TX NOT CARRIED OUT PT OTH RSN] Onset: 03-21-2022 Episodic Substance-related disorders (1 source) Nicotine dependence, cigarettes, uncomplicated; Translations: [NICOTINE DEPEND CIGARETTES UNCOMP] Onset: 06-17-2022 Chronic Unclassified (5 sources) Somatization disorder; 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] Onset: 09-07-2014 10-09-2014 Chronic Past or Other Problems Problem Classification Problem Date Documented Da te Episodic/Chronic Abdominal pain (20 sources) Chronic abdominal pain; Translations: [Epigastric pain] Onset: 10-23-2014 11-30-2014 Episodic Complication of device; implant or graft (6 sources) Breakdown (mechanical) of cranial or spinal infusion catheter, initial encounter; Translations: [Mechanical complication due to other implant and internal device, not elsewhere classified] Onset: 04-23-2016 Resolved: 04-24-2016 04-24-2016 Episodic Complications of surgical procedures or medical care (12 sources) Malfunction of gastrostomy tube; Translations: [Gastrostomy malfunction] Onset: 06-25-2015 Resolved: 06-09-2016 06-09-2016 Episodic Diseases of white blood cells (6 sources) Neutrophilia; Translations: [Disorder of white blood cells, unspecified] Onset: 06-25-2015 Resolved: 06-28-2015 06-28-2015 Chronic Fluid and electrolyte disorders (1 source) Dehydration; Translations: [DEHYDRATION] Onset: 07-23-2021 Episodic Immunizations and screening for infectious disease (1 source) Contact with and (suspected) exposure to other viral communicable diseases Onset: 03-19-2021 Resolved: 03-19-2021 Episodic Noninfectious gastroenteritis (2 sources) Noninfective gastroenteritis and colitis, unspecified; Translations: [Noninfective gastroenteritis and colitis, unspecified] Onset: 08-24-2017 Episodic Other disorders of stomach and duodenum (6 sources) Cyclical vomiting syndrome; Translations: [Cyclical vomiting syndrome unrelated to migraine] Onset: 06-21-2015 06-21-2015 Episodic Other gastrointestinal disorders (3 sources) Diarrhea, unspecified; Translations: [Diarrhea, unspecified] Onset: 08-24-2017 Episodic Other gastrointestinal disorders (1 source) Constipation, unspecified; Translations: [CONSTIPATION UNSPECIFIED] Onset: 08-28-2021 Episodic Other screening for suspected conditions (not mental disorders or infectious disease) (17 sources) Patient encounter status; Translations: [Encounter for screening for malignant neoplasm of colon] Onset: 07-06-2015 Resolved: 06-09-2016 Episodic Residual codes; unclassified (6 sources) Tobacco use and exposure - finding; Translations: [Tobacco use] Onset: 10-23-2014 07-06-2015 Episodic Residual codes; unclassified (4 sources) Procedure and treatment not carried out due to patient leaving prior to being seen by health care provider; Translations: [PROC AND TX NOT CARRIED OUT PT LEAVE] Onset: 09-30-2021 Episodic Screening and history of mental health and substance abuse codes (4 sources) Tobacco smoking behavior - finding; Translations: [Personal history of nicotine dependence] Onset: 01-27-2022 Episodic Viral infection (1 source) COVID-19 Onset: 03-19-2021 Resolved: 03-19-2021 Results Test Name Value Interpretation Reference Range Facility Alanine aminotransferase [En zymatic activity/volume] in Serum or PlasmaOrdered By: Nicole Posadas on 11-09-2022 ALT [Catalytic activity/Vol] 12 U/L 7-52 [facility] Albumin [Mass/volume] in Ser um or Plasma by Bromocresol green (BCG) dye binding methoOrdered By: Nicole Posadas on 11-09-2022 Albumin BCG dye [Mass/Vol] 4.4 g/dL 3.5-5.7 [facility] Alkaline phosphatase [Enzyma tic activity/volume] in Serum or PlasmaOrdered By: Nicole Posadas on 11-09-2022 ALP [Catalytic activity/Vol] 126 U/L 34-104 [facility] Aspartate aminotransferase [ Enzymatic activity/volume] in Serum or PlasmaOrdered By: Nicole Posadas on 11-09-2022 AST [Catalytic activity/Vol] 17 U/L 13-39 [facility] Basophils Auto (Bld) [#/Vol] Ordered By: Nicole Posadas on 11-09-2022 Basophils (Bld) [#/Vol] 0.1 10*3/uL 0.0-0.2 [facility] Basophils/100 WBC Auto (Bld) Ordered By: Nicole Posadas on 11-09-2022 Basophils/100 WBC (Bld) 0.9 % . [facility] Bilirubin Test strip Ql (U)O rdered By: Nicole Posadas on 11-09-2022 Bilirubin Ql (U) Negative Negative [facility] Bilirubin.total [Mass/volume ] in Serum or PlasmaOrdered By: Nicole Posadas on 11-09-2022 Bilirubin [Mass/Vol] 0.3 mg/dL 0.3-1.0 [facility] CT abdomen pelvis w conon CT abdomen pelvis w con [facility] [address] CT Scan Report Signed Patient: Chioma Arciniega MR#: [id number] : 1970 Acct:[id number] Age/Sex: 52 / F ADM Date: 11/09/22 Loc: ER Room: Type: [facility] ER Attending Dr: Copies to: Nicole Posadas APRN Ordering Provider: Nicole Posadas APRN Date of Service: 11/09/22 CT/CT abdomen pelvis w con: abd pain CT abdomen pelvis w con 11/09/2022 2:55 PM SIGNS AND SYMPTOMS: Mid epigastric pain with nausea, history of pancreatitis TECHNIQUE: Multidetector ct axial images of the abdomen and pelvis were obtained with IV contrast. Multiplanar reformats were performed and reviewed to further define anatomy and possible pathology. CT was performed with one or more of the following dose reduction techniques: Automated exposure control, adjustment of the mA and/or kV according to patient size, or use of iterative reconstruction technique. COMPARISON: 10/09/2021 FINDINGS: Lower Chest: There is a hiatal hernia with gastric fundus in the lower mediastinum. ABDOMEN: Liver: Within normal limits. Bile Ducts: Normal caliber. Gallbladder: Previously removed Pancreas: Within normal limits. Spleen: Within normal limits. Adrenals: There is a 1.1 cm nodule in the left adrenal gland. Kidneys: Within normal limits. Pelvis: Reproductive Organs: No pelvic masses. Ureters: Within normal limits. Bladder: Within normal limits. Bowel: Normal caliber. There is a normal appendix in the right lower quadrant. Mesenteric Lymph Nodes: No enlarged mesenteric lymph nodes. Peritoneum: No ascites or free air, no fluid collection. Vessels: Atherosclerotic changes are noted in the abdominal aorta and its branches. Retroperitoneum: Within normal limits. Abdominal Wall: Within normal limits. Bones: Degenerative changes are noted in the thoracolumbar spine. There is a levoconvex curvature of the lumbar spine. CT/CT abdomen pelvis w con IMPRESSION: No acute intra-abdominal pathology. There is a hiatal hernia with gastric fundus in the lower mediastinum. There is a 1.1 cm nodule in the left adrenal gland. Impression dictated by: Rajeev Ulloa M.D.11/09/2022 4:14 PM Dictation Location: [place] [address] Transcribed By: [facility] 11/09/22 1614 Dictated By: Rajeev Ulloa II, MD 11/09/22 1608 Signed By: 11/09/[address] [facility] Calcium [Mass/volume] in Ser um or PlasmaOrdered By: Nicole Posadas on 11-09-2022 Calcium [Mass/Vol] 9.7 mg/dL 8.6-10.3 [facility] Carbon dioxide, total [Moles /volume] in Serum or PlasmaOrdered By: Nicole Posadas on 11-09-2022 CO2 [Moles/Vol] 28.6 mmol/L 21.0-31.0 [facility] Chloride [Moles/volume] in S erika or PlasmaOrdered By: Nicole Posadas on 11-09-2022 Chloride [Moles/Vol] 107 mmol/L 98-107 [facility] Color Auto (U)Ordered By: Reshma Posadas on 11-09-2022 Color (U) Yellow Yellow [facility] Complete Blood Count Auto Di ffon 11-09-2022 Basophils (Bld) [#/Vol] 0.1 10*3/uL Normal 0.0-0.2 [facility] Comment on above: Result Comment: PERF ORMED BY: [place] [address] PATHOLOGIST CROCHETER PAULA RODRIGUES M.D. Performed By: #### C BC, LIPASE, CMP #### [facility] [address] [place] [address] Basophils/100 WBC (Bld) 0.9 % Normal . [facility] Comment on above: Performed By: #### C BC, LIPASE, CMP #### [facility] [address] [place] [address] Eosinophils (Bld) [#/Vol] 0.1 10*3/uL Normal 0.0-0.45 [facility] Comment on above: Performed By: #### C BC, LIPASE, CMP #### [facility] [address] [place] [address] [place] Eosinophils/100 WBC (Bld) 1.6 % Normal . [facility] Comment on above: Performed By: #### C BC, LIPASE, CMP #### [facility] [address] [place] [address] Erythrocyte distribution width (RBC) [Ratio] 13.6 % Normal 11.9-15.3 [facility] Comment on above: Performed By: #### C BC, LIPASE, CMP #### [facility] [address] [place] [address] [place] Hematocrit (Bld) [Volume fraction] 44.4 % Normal 34.0-46.4 [facility] Comment on above: Performed By: #### C BC, LIPASE, CMP #### [facility] [address] [place] [address] Hemoglobin (Bld) [Mass/Vol] 14.9 g/dL Normal 11.8-15.4 [facility] Comment on above: Performed By: #### C BC, LIPASE, CMP #### [facility] [address] [place] [address] [place] Lymphocytes (Bld) [#/Vol] 2.2 10*3/uL Normal 1.00-4.8 [facility] Comment on above: Performed By: #### C BC, LIPASE, CMP #### [facility] [address] [place] [address] [place] Lymphocytes/100 WBC (Bld) 24.0 % Normal . [facility] Comment on above: Performed By: #### C BC, LIPASE, CMP #### [facility] [address] MCH (RBC) [Entitic mass] 32.8 pg Normal 24.7-34.3 [facility] Comment on above: Performed By: #### C BC, LIPASE, CMP #### [facility] [address] MCV (RBC) [Entitic vol] 98.2 fL Normal 80-100 [facility] Comment on above: Performed By: #### C BC, LIPASE, CMP #### [facility] [address] Mean Corpuscular HGB Conc 33.4 g/dL Normal 32.0-35.0 [facility] Comment on above: Performed By: #### C BC, LIPASE, CMP #### [facility] [address] [place] [address] [place] Monocytes (Bld) [#/Vol] 0.8 10*3/uL Normal 0.0-0.8 [facility] Comment on above: Performed By: #### C BC, LIPASE, CMP #### [facility] [address] [place] [address] [place] Monocytes/100 WBC (Bld) 18.76 % Normal 0.00-20.00 [facility] Comment on above: Performed By: #### C BC, LIPASE, CMP #### [facility] [address] [place] [address] [place] Monocytes/100 WBC (Bld) 8.1 % Normal . [facility] Comment on above: Performed By: #### C BC, LIPASE, CMP #### [facility] [address] Neutrophils (Bld) [#/Vol] 6.1 10*3/uL Normal 1.8-7.7 [facility] Comment on above: Performed By: #### C BC, LIPASE, CMP #### [facility] [address] Neutrophils/100 WBC (Bld) 65.4 % Normal . [facility] Comment on above: Performed By: #### C BC, LIPASE, CMP #### [facility] [address] NRBC% 0.0 /100{WBC} Normal 0-0.5 [facility] Comment on above: Performed By: #### C BC, LIPASE, CMP #### [facility] [address] Platelet mean volume (Bld) [Entitic vol] 8.3 fL Normal 6.3-10.7 [facility] Comment on above: Performed By: #### C BC, LIPASE, CMP #### [facility] [address] Platelets (Bld) [#/Vol] 246 10*3/uL Normal 150-450 [facility] Comment on above: Performed By: #### C BC, LIPASE, CMP #### [facility] [address] RBC (Bld) [#/Vol] 4.52 10*6/uL Normal 3.60-5.00 [facility] Comment on above: Performed By: #### C BC, LIPASE, CMP #### [facility] [address] [place] [address] [place] WBC (Bld) [#/Vol] 9.3 10*3/uL Normal 3.8-11.6 [facility] Comment on above: Performed By: #### C BC, LIPASE, CMP #### [facility] [address] Comprehensive Metabolic Pane demetrio 11-09-2022 Albumin [Mass/Vol] 4.4 g/dL Normal 3.5-5.7 [facility] Comment on above: Performed By: #### C BC, LIPASE, CMP #### [address] Albumin/Globulin [Mass ratio] 1.6 {ratio} Normal [facility] Comment on above: Performed By: #### C BC, LIPASE, CMP #### [address] ALP [Catalytic activity/Vol] 126 U/L High 34-104 [facility] Comment on above: Performed By: #### C BC, LIPASE, CMP #### [address] ALT [Catalytic activity/Vol] 12 U/L Normal 7-52 [facility] Comment on above: Performed By: #### C BC, LIPASE, CMP #### [address] Anion gap [Moles/Vol] 8.1 mmol/L Normal 6.0-15.0 [facility] Comment on above: Performed By: #### C BC, LIPASE, CMP #### [address] AST [Catalytic activity/Vol] 17 U/L Normal 13-39 [facility] Comment on above: Performed By: #### C BC, LIPASE, CMP #### [address] Bilirubin [Mass/Vol] 0.3 mg/dL Normal 0.3-1.0 [facility] Comment on above: Performed By: #### C BC, LIPASE, CMP #### [address] Calcium [Mass/Vol] 9.7 mg/dL Normal 8.6-10.3 [facility] Comment on above: Performed By: #### C BC, LIPASE, CMP #### [address] Chloride [Moles/Vol] 107 mmol/L Normal 98-107 [facility] Comment on above: Performed By: #### C BC, LIPASE, CMP #### [address] CO2 [Moles/Vol] 28.6 mmol/L Normal 21.0-31.0 [facility] Comment on above: Performed By: #### C BC, LIPASE, CMP #### [address] Creatinine [Mass/Vol] 0.78 mg/dL Normal 0.60-1.20 [facility] Comment on above: Performed By: #### C BC, LIPASE, CMP #### [address] Creatinine Clr Calc Pharmacy 69.00 [facility] Comment on above: Performed By: #### C BC, LIPASE, CMP #### [address] GFR/1.73 sq M.predicted MDRD (S/P/Bld) [Vol rate/Area] mL/min/{1.73_m2} [facility] Comment on above: Performed By: #### C BC, LIPASE, CMP #### [address] Globulin (S) [Mass/Vol] 2.7 g/dL [facility] Comment on above: Performed By: #### C BC, LIPASE, CMP #### [address] Glucose [Mass/Vol] 96 mg/dL Normal 70-100 [facility] Comment on above: Result Comment: [facility] Glucose Reference Range is dependent on time and content of last meal. Glucose of more than 200 mg/dL in a nonstressed, ambulatory subject supports the diagnosis of Diabetes Mellitus. ADA recommended reference range Performed By: #### C BC, LIPASE, CMP #### [address] Potassium [Moles/Vol] 3.7 mmol/L Normal 3.5-5.1 [facility] Comment on above: Performed By: #### C BC, LIPASE, CMP #### [facility] [address] Protein [Mass/Vol] 7.1 g/dL Normal 6.4-8.9 [facility] Comment on above: Performed By: #### C BC, LIPASE, CMP #### [facility] [address] [place] [address] [place] Sodium [Moles/Vol] 140 mmol/L Normal 136-145 [facility] Comment on above: Performed By: #### C BC, LIPASE, CMP #### [facility] [address] Urea nitrogen [Mass/Vol] 6 mg/dL Low 7-25 [facility] Comment on above: Performed By: #### C BC, LIPASE, CMP #### [facility] [address] Creatinine [Mass/volume] in Serum or PlasmaOrdered By: Nicole Posadas on 11-09-2022 Creatinine [Mass/Vol] 0.78 mg/dL 0.60-1.20 [facility] ECG 12 lead ECGon 11-09-2022 ECG 12 lead ECG [facility] Main [place] [address] [place] [address] Electrocardiograph Report Signed Patient: Chioma Arciniega MR#: [id number] : 1970 Acct:[id number] Age/Sex: 52 / F ADM Date: 11/09/22 Loc: ER Room: Type: [facility] ER Attending Dr: Ordering Provider: Nicole Posadas, ALEA Date of Service: 11/09/2205/30/1451 ECG/ECG 12 lead ECG: Abdominal Pain Copies to: Test Reason : Blood Pressure : / mmHG Vent. Rate : 081 BPM Atrial Rate : 081 BPM P-R Int : 142 ms QRS Dur : 078 ms QT Int : 356 ms P-R-T Axes : 071 065 052 degrees QTc Int : 413 ms Normal sinus rhythm Normal ECG When compared with ECG of 09-OCT-2021 16:47, No significant change was found Confirmed by AGUSTIN LLANES MD ([id number]) on 11/10/2022 1:47:17 AM Referred By: Electronically Signed By:AGUSTIN LLANES MD Transcribed By: MUS Signed By Agustin Llanes MD 06/[address] [facility] Eosinophils Auto (Bld) [#/Vo l]Ordered By: Nicole Posadas on 11-09-2022 Eosinophils (Bld) [#/Vol] 0.1 10*3/uL 0.0-0.45 [facility] Eosinophils/100 WBC Auto (Bl d)Ordered By: Nicole Posadas on 11-09-2022 Eosinophils/100 WBC (Bld) 1.6 % . [facility] Erythrocyte distribution wid th Auto (RBC) [Ratio]Ordered By: Nicole Posadas on 11-09-2022 Erythrocyte distribution width (RBC) [Ratio] 13.6 % 11.9-15.3 [facility] Globulin Calc (S) [Mass/Vol] Ordered By: Nicole Posadas on 11-09-2022 Globulin (S) [Mass/Vol] 2.7 g/dL [facility] Glucose [Mass/volume] in Ser um or PlasmaOrdered By: Nicole Posadas on 11-09-2022 Glucose [Mass/Vol] 96 mg/dL 70-100 [facility] Comment on above: ADA recommended refe rence rangeRandom Glucose Reference Range is dependent on time and content of last meal. Glucose of more than 200 mg/dL in a nonstressed, ambulatory subject supports the diagnosis of Diabetes Mellitus. Hematocrit Auto (Bld) [Volum e fraction]Ordered By: Nicole Posadas on 11-09-2022 Hematocrit (Bld) [Volume fraction] 44.4 % 34.0-46.4 [facility] Hemoglobin [Mass/volume] in BloodOrdered By: Nicole Posadas on 11-09-2022 Hemoglobin (Bld) [Mass/Vol] 14.9 g/dL 11.8-15.4 [facility] Ketones Auto test strip (U) [Mass/Vol]Ordered By: Nicole Posadas on 11-09-2022 Ketones (U) [Mass/Vol] Negative Negative [facility] Leukocytes [#/volume] correc aurelia for nucleated erythrocytes in Blood by Automated counOrdered By: Nicole Posadas on 11-09-2022 WBC corrected for nucl RBC Auto (Bld) [#/Vol] 9.3 10*3/uL 3.8-11.6 [facility] Lipaseon 11-09-2022 Lipase [Catalytic activity/Vol] 78.0 U/L Normal 11.0-82.0 [facility] Comment on above: Result Comment: PERF ORMED BY: [place] [address] PATHOLOGIST CROCHETER PAULA RODRIGUES M.D. Performed By: #### U A #### [address] Lipase [Enzymatic activity/v olume] in Serum or PlasmaOrdered By: Nicole Posadas on 11-09-2022 Lipase [Catalytic activity/Vol] 78.0 U/L 11.0-82.0 [facility] Lymphocytes Auto (Bld) [#/Vo l]Ordered By: Nicole Posadas on 11-09-2022 Lymphocytes (Bld) [#/Vol] 2.2 10*3/uL 1.00-4.8 [facility] Lymphocytes/100 WBC Auto (Bl d)Ordered By: Nicole Posadas on 11-09-2022 Lymphocytes/100 WBC (Bld) 24.0 % . [facility] MCH Auto (RBC) [Entitic mass ]Ordered By: Nicole Posadas on 11-09-2022 MCH (RBC) [Entitic mass] 32.8 pg 24.7-34.3 [facility] MCHC Auto (RBC) [Mass/Vol]Or dered By: Nicole Posadas on 11-09-2022 MCHC (RBC) [Mass/Vol] 33.4 g/dL 32.0-35.0 [facility] MCV Auto (RBC) [Entitic vol] Ordered By: Nicole Posadas on 11-09-2022 MCV (RBC) [Entitic vol] 98.2 fL 80-100 [facility] Monocyte distribution width [Entitic volume] in Blood by AutomatedOrdered By: Nicole Posadas on 11-09-2022 Monocyte distribution width Auto (Bld) [Entitic vol] 18.76 % 0.00-20.00 [facility] Monocytes Auto (Bld) [#/Vol] Ordered By: Nicole Posadas on 11-09-2022 Monocytes (Bld) [#/Vol] 0.8 10*3/uL 0.0-0.8 [facility] Monocytes/100 WBC Auto (Bld) Ordered By: Nicole Posadas on 11-09-2022 Monocytes/100 WBC (Bld) 8.1 % . [facility] Neutrophils Auto (Bld) [#/Vo l]Ordered By: Nicole Posadas on 11-09-2022 Neutrophils (Bld) [#/Vol] 6.1 10*3/uL 1.8-7.7 [facility] Neutrophils/100 WBC Auto (Bl d)Ordered By: Nicole Posadas on 11-09-2022 Neutrophils/100 WBC (Bld) 65.4 % . [facility] Nitrite Test strip Ql (U)Ord ered By: Nicole Posadas on 11-09-2022 Nitrite Ql (U) Negative Negative [facility] No Panel InformationOrdered By: Nicole Posadas on 11-09-2022 Estimated GFR (CKD-EPI) > 60.0 mL/Min [facility] Creatinine Clearance (Chem 69.00 [facility] Nucleated erythrocytes [Pres ence] in Blood by Automated countOrdered By: Nicole Posadas on 11-09-2022 Nucleated RBC Auto Ql (Bld) 0.0 /100{WBC} 0-0.5 [facility] Platelet mean volume Auto (B ld) [Entitic vol]Ordered By: Nicole Posadas on 11-09-2022 Platelet mean volume (Bld) [Entitic vol] 8.3 fL 6.3-10.7 [facility] Platelets Auto (Bld) [#/Vol] Ordered By: Nicole Posadas on 11-09-2022 Platelets (Bld) [#/Vol] 246 10*3/uL 150-450 [facility] Potassium [Moles/volume] in Serum or PlasmaOrdered By: Nicole Posadas on 11-09-2022 Potassium [Moles/Vol] 3.7 mmol/L 3.5-5.1 [facility] Protein Auto test strip (U) [Mass/Vol]Ordered By: Nicole Posadas on 11-09-2022 Protein (U) [Mass/Vol] Negative Negative Fi [facility] Protein [Mass/volume] in Ser um or PlasmaOrdered By: Nicole Posadas on 11-09-2022 Protein [Mass/Vol] 7.1 g/dL 6.4-8.9 [facility] RBC Auto (Bld) [#/Vol]Ordere d By: Nicole Posadas on 11-09-2022 RBC (Bld) [#/Vol] 4.52 10*6/uL 3.60-5.00 [facility] Serum or plasma albumin/glob ulin mass ratioOrdered By: [facility] Albumin/Globulin [Mass ratio] 1.6 {ratio} [facility] Serum or plasma anion gap de terminationOrdered By: Nicole [facility] on 11-09-2022 Anion gap [Moles/Vol] 8.1 mmol/L 6.0-15.0 [facility] Sodium [Moles/volume] in Ser um or PlasmaOrdered By: Nicole [facility] on 11-09-2022 Sodium [Moles/Vol] 140 mmol/L 136-145 [facility] Specific gravity Auto test s trip (U) [Rel density]Ordered By: [facility]22 Specific gravity (U) [Rel density] 1.012 1.001-1.030 [facility] Troponin I High Sensitivityo n 11-09-2022 Troponin I High Sensitivity 3.0 pg/mL Normal 0.0-15.0 [facility] Comment on above: Result Comment: PERF ORMED BY: [facility] [address] [address] PATHOLOGIST CROCHETER PAULA RODRIGUES M.D. Performed By: #### H S TROP #### [facility] [address] [place] [address] [place] Troponin I.cardiac [Mass/vol ume] in Serum or Plasma by Detection limit <= 0.01 ng/Ordered By: Nicole Posadas on 11-09-2022 Troponin I.cardiac DL <= 0.01 ng/mL [Mass/Vol] 3.0 pg/mL 0.0-15.0 [facility] Urea nitrogen [Mass/volume] in Serum or PlasmaOrdered By: Nicole Posadas on 11-09-2022 Urea nitrogen [Mass/Vol] 6 mg/dL 09-30 [facility] Urinalysison 11-09-2022 Appearance (U) Clear Normal Clear [facility] Comment on above: Order Comment: Name Collection Type:: Clean-Voided Midstream Performed By: #### U A #### [facility] [address] [place] [address] [place] Bilirubin,Urine Negative Normal Negative [facility] Comment on above: Order Comment: Name Collection Type:: Clean-Voided Midstream Performed By: #### U A #### [facility] [address] [place] [address] [place] Color (U) Yellow Normal Yellow [facility] Comment on above: Order Comment: Name Collection Type:: Clean-Voided Midstream Performed By: #### U A #### [facility] [address] [place] [address] [place] Glucose Ql (U) Normal Normal Normal [facility] Comment on above: Order Comment: Name Collection Type:: Clean-Voided Midstream Performed By: #### U A #### [facility] [address] [place], [place] [id number] [place] Ketones Ql (U) Negative Normal Negative [facility] Comment on above: Order Comment: Name Collection Type:: Clean-Voided Midstream Performed By: #### U A #### [facility] [address] [place], [place] [id number] [place] Leukocyte esterase Test strip Ql (U) Negative Normal Negative [facility] Comment on above: Order Comment: Name Collection Type:: Clean-Voided Midstream Performed By: #### U A #### [place] [address] [place] Nitrite,Urine Negative Normal Negative [facility] Comment on above: Order Comment: Name Collection Type:: Clean-Voided Midstream Performed By: #### U A #### [address] Occult Blood,Urine Negative Normal Negative [facility] Comment on above: Order Comment: Name Collection Type:: Clean-Voided Midstream Result Comment: PERF ORMED BY: [place] [address] PATHOLOGIST CROCHETER PAULA RODRIGUES M.D. Performed By: #### U A #### [address] pH (U) 5.5 [pH] Normal 5.0-9.0 [facility] Comment on above: Order Comment: Name Collection Type:: Clean-Voided Midstream Performed By: #### U A #### [address] Protein,Urine Negative Normal Negative [facility] Comment on above: Order Comment: Name Collection Type:: Clean-Voided Midstream Performed By: #### U A #### [address] Specificy [place],Urine 1.012 Normal 1.001-1.030 [facility] Comment on above: Order Comment: Name Collection Type:: Clean-Voided Midstream Performed By: #### U A #### [address] Urobilinogen,Urine Normal Normal Normal [facility] Comment on above: Order Comment: Name Collection Type:: Clean-Voided Midstream Performed By: #### U A #### [address] Urine clarity by refractomet ry automatedOrdered By: Nicole Posadas on 11-09-2022 Clarity Refractometry automated (U) Clear Clear [facility] Urine glucose measurement by automated test strip (mass/volume)Ordered By: Nicole Posadas on 11-09-2022 Glucose Auto test strip (U) [Mass/Vol] Normal mg/dL Normal [facility] Urine hemoglobin detection b y automated test stripOrdered By: Nicole Posadas on 11-09-2022 Hemoglobin Auto test strip Ql (U) Negative Negative [facility] Urine leukocyte esterase det ection by automated test stripOrdered By: Nicole Posadas on 11-09-2022 Leukocyte esterase Auto test strip Ql (U) Negative Negative [facility] Urobilinogen Auto test strip (U) [Mass/Vol]Ordered By: Nicole Posadas on 11-09-2022 Urobilinogen (U) [Mass/Vol] Normal mg/dL Normal [facility] WBC Auto (Bld) [#/Vol]Ordere d By: Nicole Posadas on 11-09-2022 WBC (Bld) [#/Vol] 9.3 10*3/uL 3.8-11.6 [facility] pH Auto test strip (U)Ordere d By: Nicole Posadas on 11-09-2022 pH (U) 5.5 [pH] 5.0-9.0 [facility] UPPER EUSon 08-12-2022 [facility] Gastroenterology Patient Name: Chioma Rainey Procedure Date: 08/12/2022 11:09 AM Date of : 1970 Admit Type: Outpatient Age: 52 Room: EUS Proc Room 01 Gender: Female Note Status: Finalized Attending MD: Sabrina Dee MD, MPH, [id number] Procedure: Upper EUS Indications: Chronic pancreatitis, Epigastric abdominal pain, Celiac plexus block for pain secondary to chronic pancreatitis, Dysphagia, Follow-up of esophageal stenosis, For therapy of esophageal stenosis Providers: Sabrina Dee MD, MPH (Doctor), Kolby Gifford RN (Nurse), Elba Faustin (Nurse), Mary Gaviria Crib Clerk (Crib Clerk) Referring MD: Elie Nichols MD (Referring MD) Medicines: Monitored Anesthesia Care Complications: No immediate complications. Procedure: Pre-Anesthesia Assessment: - Prior to the procedure, a History and Physical was performed, and patient medications and allergies were reviewed. The patient is competent. The risks and benefits of the procedure and the sedation options and risks were discussed with the patient. All questions were answered and informed consent was obtained. Patient identification and proposed procedure were verified by the physician, the nurse and the rubber curer in the procedure room. Mental Status Examination: normal. Airway Examination: Mallampati Class II (the uvula but not tonsillar pillars visualized). Respiratory Examination: clear to auscultation. CV Examination: normal. Prophylactic Antibiotics: The patient does not require prophylactic antibiotics. Prior Anticoagulants: The patient has taken no anticoagulant or antiplatelet agents. ASA Grade Assessment: III - A patient with severe systemic disease. After reviewing the risks and benefits, the patient was deemed in satisfactory condition to undergo the procedure. The anesthesia plan was to use monitored anesthesia care (MAC). Immediately prior to administration of medications, the patient was re-assessed for adequacy to receive sedatives. The heart rate, respiratory rate, oxygen saturations, blood pressure, adequacy of pulmonary ventilation, and response to care were monitored throughout the procedure. The physical status of the patient was re-assessed after the procedure. After obtaining informed consent, the endoscope was passed under direct vision. Throughout the procedure, the patient's blood pressure, pulse, and oxygen saturations were monitored continuously. The Endosonoscope was introduced through the mouth, and advanced to the duodenum for ultrasound examination from the esophagus, stomach and duodenum. The Endoscope was introduced through the mouth, and advanced to the duodenum for ultrasound examination from the esophagus, stomach and duodenum. The upper EUS was accomplished without difficulty. The patient tolerated the procedure well. Findings: ENDOSCOPIC FINDING: : The upper third of the esophagus and middle third of the esophagus were normal. A moderate Schatzki ring was found at the gastroesophageal junction. A guidewire was placed and the scope was withdrawn. Dilation was performed with a Savary dilator with no resistance at 18 mm and mild resistance at 18 mm. The dilation site was examined following endoscope reinsertion and showed moderate mucosal disruption and complete resolution of luminal narrowing. The Z-line was regular and was found 35 cm from the incisors. A 3 cm hiatal hernia was present. The entire examined stomach was normal. The examined duodenum was normal. ENDOSONOGRAPHIC FINDING: : The region of the celiac plexus and celiac ganglia was visualized and showed no sign of significant endosonographic abnor (more content not included)... LAB, [facility] Radiology Study observation (narrative) [facility] AMYLASEon 06-13-2022 Amylase [Catalytic activity/Vol] 92 U/L Normal 25-115 [facility] Comment on above: Performed By: #### L IPA, CMP, CRP, NAT #### [facility] [address] [place] [address] Dr. Keturah Fisher CBC AUTO DIFFon 06-13-2022 BASO # 0.1 103/ul Normal 0.0-0.1 [facility] Comment on above: Performed By: #### L IPA, CMP, CRP, NAT #### [facility] [address] [place] [address] Dr. Keturah Fisher Basophils/100 WBC (Bld) 0.7 % Normal 0.2-2.0 [facility] Comment on above: Performed By: #### L IPA, CMP, CRP, NAT #### [facility] [address] [place] [address] Dr. Keturah Fisher EO # 0.1 103/ul Normal 0.0-0.7 [facility] Comment on above: Performed By: #### L IPA, CMP, CRP, NAT #### [facility] [address] [place] [address] Dr. Keturah Fisher Eosinophils/100 WBC (Bld) 1.1 % Normal 0.9-7.0 [facility] Comment on above: Performed By: #### L IPA, CMP, CRP, NAT #### [facility] [address] [place] [address] Dr. Keturah Fisher Erythrocyte distribution width (RBC) [Ratio] 13.0 % Normal 11.0-15.0 [facility] Comment on above: Performed By: #### L IPA, CMP, CRP, NAT #### [facility] [address] [place] [address] Dr. Keturah Fisher Hematocrit (Bld) [Volume fraction] 40.5 % Normal 36.0-48.0 [facility] Comment on above: Performed By: #### L IPA, CMP, CRP, NAT #### [facility] [address] [address] [address] Keturah Fisher Hemoglobin (Bld) [Mass/Vol] 13.9 g/dL Normal 12.0-16.0 [facility] Comment on above: Performed By: #### L IPA, CMP, CRP, NAT #### [facility] [address] [place] [address] Dr. Keturah Fisher IG # 0.03 10e3/ul Normal 0.00-0.03 [facility] Comment on above: Performed By: #### L IPA, CMP, CRP, NAT #### [facility] [address] [place] [address] Dr. Keturah Fisher IG % 0.3 % Normal 0.0-0.5 [facility] Comment on above: Performed By: #### L IPA, CMP, CRP, NAT #### [facility] [address] [place] [address] Dr. Keturah Fisher LYMPH # 2.9 103/ul Normal 1.2-3.8 [facility] Comment on above: Performed By: #### L IPA, CMP, CRP, NAT #### [facility] [address] [place] [address] Dr. Keturah Fisher Lymphocytes/100 WBC (Bld) 25.0 % Normal 20.5-60.0 [facility] Comment on above: Performed By: #### L IPA, CMP, CRP, NAT #### [facility] [address] [place] [address] Dr. Keturah Fisher MANUAL DIFF REQ NO Normal [facility] Comment on above: Performed By: #### L IPA, CMP, CRP, NAT #### [facility] [address] [place] [address] Dr. Keturah Fisher MCH (RBC) [Entitic mass] 33.3 pg Normal 26.7-34.0 [facility] Comment on above: Performed By: #### L IPA, CMP, CRP, NAT #### [facility] [address] [place] [address] Dr. Keturah Fisher MCHC (RBC) [Mass/Vol] 34.3 g/dL Normal 29.9-35.2 [facility] Comment on above: Performed By: #### L IPA, CMP, CRP, NAT #### [facility] [address] [address] [address] Keturah Fisher MCV (RBC) [Entitic vol] 96.9 fL Normal 81.0-99.0 [facility] Comment on above: Performed By: #### L IPA, CMP, CRP, NAT #### [facility] [address] [place] [address] Dr. Keturah Fisher MONO # 0.7 103/ul Normal 0.3-0.8 [facility] Comment on above: Performed By: #### L IPA, CMP, CRP, NAT #### [facility] [address] [place] [address] Dr. Keturah Fisher Monocytes/100 WBC (Bld) 5.6 % Normal 1.7-12.0 [facility] Comment on above: Performed By: #### L IPA, CMP, CRP, NAT #### [facility] [address] [place] [address] Dr. Keturah Fisher NEUT # 7.8 103/ul Critically high 1.4-6.5 [facility] Comment on above: Performed By: #### L IPA, CMP, CRP, NAT #### [facility] [address] [place] [address] Dr. Keturah Fisher Neutrophils/100 WBC (Bld) 67.3 % Normal 43.0-75.0 [facility] Comment on above: Performed By: #### L IPA, CMP, CRP, NAT #### [facility] [address] [place] [address] Dr. Keturah Fisher Platelet mean volume (Bld) [Entitic vol] 9.5 fL Normal 9.5-13.5 [facility] Comment on above: Performed By: #### L IPA, CMP, CRP, NAT #### [facility] [address] [place] [address] Dr. Keturah Fisher PLT 227 103/ul Normal 150-450 [facility] Comment on above: Performed By: #### L IPA, CMP, CRP, NAT #### [facility] [address] [place] [address] Dr. Keturah Fisher RBC 4.18 106/ul Critically low 4.20-5.40 [facility] Comment on above: Performed By: #### L IPA, CMP, CRP, NAT #### [facility] [address] [place] [address] Dr. Keturah Fisher WBC 11.5 103/ul Critically high 4.0-11.0 [facility] Comment on above: Performed By: #### L IPA, CMP, CRP, NAT #### [facility] [address] [place] [address] Dr. Keturah Fisher LIPASEon 06-13-2022 Lipase [Catalytic activity/Vol] 168.0 U/L Normal 73.0-393.0 [facility] Comment on above: Performed By: #### L IPA, CMP, CRP, NAT #### [facility] [address] [place] [address] Dr. Keturah Fishre PROF 14(COMP METB)on 023 Albumin [Mass/Vol] 3.6 g/dL Normal 3.4-5.0 [facility] Comment on above: Performed By: #### L IPA, CMP, CRP, NAT #### [facility] [address] [place] [address] Dr. Keturah Fisher Albumin/Globulin [Mass ratio] 1.1 {ratio} Normal [facility] Comment on above: Performed By: #### L IPA, CMP, CRP, NAT #### [facility] [address] [place] [address] Dr. Keturah Fisher ALP [Catalytic activity/Vol] 132 U/L Critically high 46-116 [facility] Comment on above: Performed By: #### L IPA, CMP, CRP, NAT #### [facility] [address] [place] [address] Dr. Keturah Fisher ALT [Catalytic activity/Vol] 20 U/L Normal 14-59 [facility] Comment on above: Performed By: #### L IPA, CMP, CRP, NAT #### [facility] [address] [place] [address] Dr. Keturah Fisher Anion gap [Moles/Vol] 13.7 mmol/L Normal [facility] Comment on above: Performed By: #### L IPA, CMP, CRP, NAT #### [facility] [address] [address] [address] Keturah Fisher AST [Catalytic activity/Vol] 19 U/L Normal 15-37 [facility] Comment on above: Performed By: #### L IPA, CMP, CRP, NAT #### [facility] [address] [address] [address] Keturah Fisher Bilirubin [Mass/Vol] 0.1 mg/dL Critically low 0.2-1.0 [facility] Comment on above: Performed By: #### L IPA, CMP, CRP, NAT #### [facility] [address] [place] [address] Dr. Keturah Fisher Calcium [Mass/Vol] 10.1 mg/dL Normal 8.5-10.1 [facility] Comment on above: Performed By: #### L IPA, CMP, CRP, NAT #### [facility] [address] [place] [address] Dr. Keturah Fisher Chloride [Moles/Vol] 104 mmol/L Normal 98-107 [facility] Comment on above: Performed By: #### L IPA, CMP, CRP, NAT #### [facility] [address] [place] [address] Dr. Keturah Fisher CO2 [Moles/Vol] 26.7 mmol/L Normal 21.0-32.0 [facility] Comment on above: Performed By: #### L IPA, CMP, CRP, NAT #### [facility] [address] [place] [address] Dr. Keturah Fisher Creatinine [Mass/Vol] 0.83 mg/dL Normal 0.55-1.02 [facility] Comment on above: Performed By: #### L IPA, CMP, CRP, NAT #### [facility] [address] [place] [address] Dr. Keturah Fisher EGFR-AF CITIZEN [place] >60 Normal >=60 [facility] Comment on above: Performed By: #### L IPA, CMP, CRP, NAT #### [facility] [address] [address] [address] Keturah Fisher EGFR-NON AF CITIZEN OF [place] >60 Normal >=60 [facility] Comment on above: Performed By: #### L IPA, CMP, CRP, NAT #### [facility] [address] [address] [address] Keturah Fisher Globulin (S) [Mass/Vol] 3.4 g/dL Normal [facility] Comment on above: Performed By: #### L IPA, CMP, CRP, NAT #### [facility] [address] [address] [address] Keturah Fisher Glucose [Mass/Vol] 115 mg/dL Critically high 74-106 [facility] Comment on above: Performed By: #### L IPA, CMP, CRP, NAT #### [facility] [address] [place] [address] Dr. Keturah Fisher Potassium [Moles/Vol] 3.4 mmol/L Critically low 3.5-5.1 [facility] Comment on above: Performed By: #### L IPA, CMP, CRP, NAT #### [facility] [address] [address] [address] Keturah Fisher Protein [Mass/Vol] 7.0 g/dL Normal 6.4-8.2 [facility] Comment on above: Performed By: #### L IPA, CMP, CRP, NAT #### [facility] [address] [address] [address] Keturah Fisher Sodium [Moles/Vol] 141 mmol/L Normal 136-145 [facility] Comment on above: Performed By: #### L IPA, CMP, CRP, NAT #### [facility] [address] [place] [address] Dr. Keturah Fisher Urea nitrogen [Mass/Vol] 9.0 mg/dL Normal 7.0-18.0 [facility] Comment on above: Performed By: #### L IPA, CMP, CRP, NAT #### [facility] [address] [place] [address] Dr. Keturah Fisher Urea nitrogen/Creatinine [Mass ratio] 10.8 mg/mg Normal [facility] Comment on above: Performed By: #### L IPA, CMP, CRP, NAT #### [facility] [address] [address] [address] Keturah Fisher XR ABD FLAT UP_PA Jorje 06-13 XR ABD FLAT UP_PA CH EXAM: XR ABD FLAT UP_PA CH HISTORY: NAUSEA WITH VOMITING, UNSPECIFIED COMPARISON: None. TECHNIQUE: PA chest and 2 views of the abdomen FINDINGS: The lung parenchyma is free of consolidation or infiltrate. No pneumothorax or pleural effusion. The cardiac, mediastinal and hilar contours are normal. The bowel gas pattern is nonobstructed. No free intraperitoneal air or discrete intra-abdominal calcification. Stool burden is normal. Surgical clips within the right upper quadrant. The visualized osseous structures exhibit no gross abnormality. IMPRESSION: No visualized acute irregularity Electronically authenticated by: ION KRUSE Date: 2022-06-13 17:10 Normal [facility] AMYLASEon 03-29-2022 Amylase [Catalytic activity/Vol] 141 U/L Critically high 25-115 [facility] Comment on above: Performed By: #### L IVER, LIPA, BMP, NAT ####[facility] [address] [address]Dr. Keturah Fisher CBC AUTO DIFFon 03-29-2022 BASO # 0.1 103/ul Normal 0.0-0.1 [facility] Comment on above: Performed By: #### L IPA, CMP, CRP, NAT #### [facility] [address] [address] [address] Keturah Fisher Basophils/100 WBC (Bld) 0.6 % Normal 0.2-2.0 [facility] Comment on above: Performed By: #### L IPA, CMP, CRP, NAT #### [facility] [address] [address] [address] Keturah Fisher EO # 0.1 103/ul Normal 0.0-0.7 [facility] Comment on above: Performed By: #### L IPA, CMP, CRP, NAT #### [facility] [address] [address] [address] Keturah Fisher Eosinophils/100 WBC (Bld) 0.7 % Critically low 0.9-7.0 [facility] Comment on above: Performed By: #### L IPA, CMP, CRP, NAT #### [facility] [address] [address] [address] Keturah Fisher Erythrocyte distribution width (RBC) [Ratio] 12.9 % Normal 11.0-15.0 [facility] Comment on above: Performed By: #### L IPA, CMP, CRP, NAT #### [facility] [address] [address] [address] Keturah Fisher Hematocrit (Bld) [Volume fraction] 39.7 % Normal 36.0-48.0 [facility] Comment on above: Performed By: #### L IPA, CMP, CRP, NAT #### [facility] [address] [address] [address] Keturah Fisher Hemoglobin (Bld) [Mass/Vol] 14.7 g/dL Normal 12.0-16.0 [facility] Comment on above: Performed By: #### L IPA, CMP, CRP, NAT #### [facility] [address] [address] [address] Keturah Fisher IG # 0.04 10e3/ul Critically high 0.00-0.03 [facility] Comment on above: Performed By: #### L IPA, CMP, CRP, NAT #### [facility] [address] [address] [address] Keturah Fisher IG % 0.4 % Normal 0.0-0.5 [facility] Comment on above: Performed By: #### L IPA, CMP, CRP, NAT #### [facility] [address] [address] [address] Keturah Fisher LYMPH # 2.1 103/ul Normal 1.2-3.8 [facility] Comment on above: Performed By: #### L IPA, CMP, CRP, NAT #### [facility] [address] [address] [address] Keturah Fisher Lymphocytes/100 WBC (Bld) 21.2 % Normal 20.5-60.0 [facility] Comment on above: Performed By: #### L IPA, CMP, CRP, NAT #### [facility] [address] [place] [address] Dr. Keturah Fisher MANUAL DIFF REQ NO Normal [facility] Comment on above: Performed By: #### L IPA, CMP, CRP, NAT #### [facility] [address] [place] [address] Dr. Keturah Fisher MCH (RBC) [Entitic mass] 33.0 pg Normal 26.7-34.0 [facility] Comment on above: Performed By: #### L IPA, CMP, CRP, NAT #### [facility] [address] [place] [address] Dr. Keturah Fisher MCHC (RBC) [Mass/Vol] 37.0 g/dL Critically high 29.9-35.2 [facility] Comment on above: Performed By: #### L IPA, CMP, CRP, NAT #### [facility] [address] [place] [address] Dr. Keturah Fisher MCV (RBC) [Entitic vol] 89.0 fL Normal 81.0-99.0 [facility] Comment on above: Performed By: #### L IPA, CMP, CRP, NAT #### [facility] [address] [place] [address] Dr. Keturah Fisher MONO # 1.0 103/ul Critically high 0.3-0.8 [facility] Comment on above: Performed By: #### L IPA, CMP, CRP, NAT #### [facility] [address] [place] [address] Dr. Keturah Fisher Monocytes/100 WBC (Bld) 10.3 % Normal 1.7-12.0 [facility] Comment on above: Performed By: #### L IPA, CMP, CRP, NAT #### [facility] [address] [place] [address] Dr. Keturah Fisher NEUT # 6.5 103/ul Normal 1.4-6.5 [facility] Comment on above: Performed By: #### L IPA, CMP, CRP, NAT #### [facility] [address] [address] [address] Keturah Fisher Neutrophils/100 WBC (Bld) 66.8 % Normal 43.0-75.0 [facility] Comment on above: Performed By: #### L IPA, CMP, CRP, NAT #### [facility] [address] [address] [address] Keturah Fisher Platelet mean volume (Bld) [Entitic vol] 9.2 fL Critically low 9.5-13.5 [facility] Comment on above: Performed By: #### L IPA, CMP, CRP, NAT #### [facility] [address] [address] [address] Keturah Fisher PLT 229 103/ul Normal 150-450 [facility] Comment on above: Performed By: #### L IPA, CMP, CRP, NAT #### [facility] [address] [place] [address] Dr. Keturah Fisher RBC 4.46 106/ul Normal 4.20-5.40 [facility] Comment on above: Performed By: #### L IPA, CMP, CRP, NAT #### [facility] [address] [place] [address] Dr. Keturah Fisher WBC 9.7 103/ul Normal 4.0-11.0 [facility] Comment on above: Performed By: #### L IPA, CMP, CRP, NAT #### [facility] [address] [place] [address] Dr. Keturah Fisher LACTATE/LACTIC ACIDon 2022 Lactate [Moles/Vol] 0.5 mmol/L Normal 0.4-1.9 [facility] Comment on above: Performed By: #### L IPA, CMP, CRP, NAT #### [facility] [address] [place] [address] Dr. Ketuarh Fisher LIPASEon 03-29-2022 Lipase [Catalytic activity/Vol] 308.0 U/L Normal 73.0-393.0 [facility] Comment on above: Performed By: #### L IVER, LIPA, BMP, NAT ####[facility] [address] [address]Dr. Keturah Fisher LIVER PROFILEon 03-29-2022 Albumin [Mass/Vol] 3.3 g/dL Critically low 3.4-5.0 [facility] Comment on above: Performed By: #### L IVER, LIPA, BMP, NAT ####[facility] [address] [address]Dr. Keturah Fisher Albumin/Globulin [Mass ratio] 0.8 {ratio} Normal [facility] Comment on above: Performed By: #### L IVER, LIPA, BMP, NAT ####[facility] [address] [place], [place] [address]Dr. Keturah Fisher ALP [Catalytic activity/Vol] 182 U/L Critically high 46-116 [facility] Comment on above: Performed By: #### L IVER, LIPA, BMP, NAT ####[facility] [address] [place], [place] [address]Dr. Keturah Fisher ALT [Catalytic activity/Vol] 16 U/L Normal 14-59 [facility] Comment on above: Performed By: #### L IVER, LIPA, BMP, NAT ####[facility] [address] [place], [place] [address]Dr. Keturah Fisher AST [Catalytic activity/Vol] 26 U/L Normal 15-37 [facility] Comment on above: Performed By: #### L IVER, LIPA, BMP, NAT ####[facility] [address] [place], [place] [address]Dr. Keturah Phillip BILI, CONJUGATED 0.0 mg/dL Normal 0.0-0.2 [facility] Comment on above: Performed By: #### L IVER, LIPA, BMP, NAT ####[facility] [address] [place], [place] [address]Dr. Keturah Fisher Bilirubin [Mass/Vol] 0.3 mg/dL Normal 0.2-1.0 [facility] Comment on above: Performed By: #### L IVER, LIPA, BMP, NAT ####[facility] [address] [address]Dr. Keturah Fisher Globulin (S) [Mass/Vol] 3.9 g/dL Normal [facility] Comment on above: Performed By: #### L IVER, LIPA, BMP, NAT ####[facility] [address] [address]Dr. Keturah Fisher Protein [Mass/Vol] 7.2 g/dL Normal 6.4-8.2 [facility] Comment on above: Performed By: #### L IVER, LIPA, BMP, NAT ####[facility] [address] [place], [place] [address]Dr. Keturah Fisher PROF CHEM 8 (BAS METB)on Anion gap [Moles/Vol] 14.6 mmol/L Normal [facility] Comment on above: Performed By: #### L IVER, LIPA, BMP, NAT ####[facility] [address] [place], [place] [address]Dr. Keturah Fisher Calcium [Mass/Vol] 10.1 mg/dL Normal 8.5-10.1 [facility] Comment on above: Performed By: #### L IVHERMINIA, LIPA, BMP, NAT ####[facility] [address] [place], [place] [address]Dr. Keturah Fisher Chloride [Moles/Vol] 104 mmol/L Normal 98-107 [facility] Comment on above: Performed By: #### L IVER, LIPA, BMP, NAT ####[facility] [address] [place], [place] [address]Dr. Keturah Fisher CO2 [Moles/Vol] 24.8 mmol/L Normal 21.0-32.0 [facility] Comment on above: Performed By: #### L IVER, LIPA, BMP, NAT ####[facility] [address] [place], [place] [address]Dr. Keturah Fisher Creatinine [Mass/Vol] 0.61 mg/dL Normal 0.55-1.02 [facility] Comment on above: Performed By: #### L IVER, LIPA, BMP, NAT ####[facility] [address] [place] [address]Dr. Keturah Fisher EGFR-AF CITIZ[place] >60 Normal >=60 [facility] Comment on above: Performed By: #### L IVER, LIPA, BMP, NAT ####[facility] [address] [place] [address]Dr. Keturah Fisher EGFR-NON AF CITIZEN OF [place] >60 Normal >=60 [facility] Comment on above: Performed By: #### L IVER, LIPA, BMP, NAT ####[facility] [address] [place] [address]Dr. Keturah Fisher Glucose [Mass/Vol] 98 mg/dL Normal 74-106 [facility] Comment on above: Performed By: #### L IVER, LIPA, BMP, NAT ####[facility] [address] [place] [address]Dr. Keturah Fisher Potassium [Moles/Vol] 4.4 mmol/L Normal 3.5-5.1 [facility] Comment on above: Performed By: #### L IVER, LIPA, BMP, NAT ####[facility] [address] [place], [place] [address]Dr. Keturah Fisher Sodium [Moles/Vol] 139 mmol/L Normal 136-145 [facility] Comment on above: Performed By: #### L IVER, LIPA, BMP, NAT ####[facility] [address] [place] [address]Dr. Keturah Fisher Urea nitrogen [Mass/Vol] 7.0 mg/dL Normal 7.0-18.0 [facility] Comment on above: Performed By: #### L IVER, LIPA, BMP, NAT ####[facility] [address] [place] [address]Dr. Keturah Fisher Urea nitrogen/Creatinine [Mass ratio] 11.5 mg/mg Normal [facility] Comment on above: Performed By: #### L IVER, LIPA, BMP, NAT ####[facility] [address] [place] [address]Dr. Keturah Fisher Albumin [Mass/volume] in Ser um or PlasmaOrdered By: Agustin Llanes on 03-22-2022 Albumin [Mass/Vol] 4.1 g/dL 3.2-5.5 [facility] Automated erythrocytes count in urine sediment (number/area)Ordered By: Agustin Llanes on 03-22-2022 RBC Auto (Urine sed) [#/Area] 3-4 [HPF] 0-4 [facility] Automated leukocytes count i n urine sediment (number/area)Ordered By: Agustin Llanes on 03-22-2022 WBC Auto (Urine sed) [#/Area] 10-19 [HPF] 0-4 [facility] Basic Metabolic Panelon 03-09 Anion gap [Moles/Vol] 12.6 mmol/L Normal 6.0-15.0 [facility] Comment on above: Performed By: #### H EPATIC, LIPASE, CBC, BMP #### [facility] [address] [place] [address] [place] Calcium [Mass/Vol] 9.9 mg/dL Normal 8.2-10.2 [facility] Comment on above: Performed By: #### H EPATIC, LIPASE, CBC, BMP #### [facility] [address] [place] [id number] [place] Chloride [Moles/Vol] 103 mmol/L Normal 95-114 [facility] Comment on above: Performed By: #### H EPATIC, LIPASE, CBC, BMP #### [facility] [address] [place] [id number] [place] CO2 [Moles/Vol] 26.9 mmol/L Normal 22.0-30.0 [facility] Comment on above: Performed By: #### H EPATIC, LIPASE, CBC, BMP #### [facility] [address] [place] [id number] [place] Creatinine [Mass/Vol] 0.74 mg/dL Normal 0.44-1.03 [facility] Comment on above: Performed By: #### H EPATIC, LIPASE, CBC, BMP #### [facility] [address] [place] [id number] [place] Creatinine Clr Calc Pharmacy 70.[address] [facility] Comment on above: Performed By: #### H EPATIC, LIPASE, CBC, BMP #### [facility] [address] Estimated GFR ( [place] > 60 [facility] Comment on above: Result Comment: GFR estimated reference range: According to KDOQI guidelines, <60 ml/min/1.73m2 is sufficient to diagnose a patient with chronic kidney disease. Performed By: #### H EPATIC, LIPASE, CBC, BMP #### [facility] [address] Estimated GFR (Non- Am > 60 [facility] Comment on above: Performed By: #### H EPATIC, LIPASE, CBC, BMP #### [address] Glucose [Mass/Vol] 106 mg/dL High 70-100 [facility] Comment on above: Result Comment: [place] Glucose Reference Range is dependent on time and content of last meal. Glucose of more than 200 mg/dL in a nonstressed, ambulatory subject supports the diagnosis of Diabetes Mellitus. ADA recommended reference range Performed By: #### H EPATIC, LIPASE, CBC, BMP #### [address] Potassium [Moles/Vol] 4.5 mmol/L Normal 3.5-5.1 [facility] Comment on above: Performed By: #### H EPATIC, LIPASE, CBC, BMP #### [address] Sodium [Moles/Vol] 138 mmol/L Normal 136-146 [facility] Comment on above: Performed By: #### H EPATIC, LIPASE, CBC, BMP #### [address] Urea nitrogen [Mass/Vol] 8 mg/dL Low 9-23 [facility] Comment on above: Performed By: #### H EPATIC, LIPASE, CBC, BMP #### [address] Basophils Auto (Bld) [#/Vol] Ordered By: Agustin Llanes on 03-22-2022 Basophils (Bld) [#/Vol] 0.1 10*3/uL 0.0-0.2 [facility] Basophils/100 WBC Auto (Bld) Ordered By: Agustin Llanes on 03-22-2022 Basophils/100 WBC (Bld) 0.9 % . [facility] Bilirubin Test strip Ql (U)O rdered By: Agustin Llaens on 03-22-2022 Bilirubin Ql (U) Negative Negative [facility] Color Auto (U)Ordered By: Vita Llanes on 03-22-2022 Color (U) Yellow Yellow [facility] Complete Blood Count Auto Di ffon 03-22-2022 Basophils (Bld) [#/Vol] 0.1 10*3/uL Normal 0.0-0.2 [facility] Comment on above: Result Comment: PERF ORMED BY: [place] [address] PATHOLOGIST CROCHETER PAULA RODRIGUES M.D. Performed By: #### H EPATIC, LIPASE, CBC, BMP #### [facility] [address] Basophils/100 WBC (Bld) 0.9 % Normal . [facility] Comment on above: Performed By: #### H EPATIC, LIPASE, CBC, BMP #### [facility] [address] [place] [address] [place] Eosinophils (Bld) [#/Vol] 0.1 10*3/uL Normal 0.0-0.45 [facility] Comment on above: Performed By: #### H EPATIC, LIPASE, CBC, BMP #### [facility] [address] [place] [address] [place] Eosinophils/100 WBC (Bld) 0.7 % Normal . [facility] Comment on above: Performed By: #### H EPATIC, LIPASE, CBC, BMP #### [facility] [address] Erythrocyte distribution width (RBC) [Ratio] 13.9 % Normal 11.9-15.3 [facility] Comment on above: Performed By: #### H EPATIC, LIPASE, CBC, BMP #### [address] Hematocrit (Bld) [Volume fraction] 45.7 % Normal 34.0-46.4 [facility] Comment on above: Performed By: #### H EPATIC, LIPASE, CBC, BMP #### [address] Hemoglobin (Bld) [Mass/Vol] 15.2 g/dL Normal 11.8-15.4 [facility] Comment on above: Performed By: #### H EPATIC, LIPASE, CBC, BMP #### [address] Lymphocytes (Bld) [#/Vol] 2.2 10*3/uL Normal 1.00-4.8 [facility] Comment on above: Performed By: #### H EPATIC, LIPASE, CBC, BMP #### [address] Lymphocytes/100 WBC (Bld) 18.0 % Normal . [facility] Comment on above: Performed By: #### H EPATIC, LIPASE, CBC, BMP #### [address] MCH (RBC) [Entitic mass] 32.5 pg Normal 24.7-34.3 [facility] Comment on above: Performed By: #### H EPATIC, LIPASE, CBC, BMP #### [address] MCV (RBC) [Entitic vol] 98.0 fL Normal 80-100 [facility] Comment on above: Performed By: #### H EPATIC, LIPASE, CBC, BMP #### [address] Mean Corpuscular HGB Conc 33.2 g/dL Normal 32.0-35.0 [facility] Comment on above: Performed By: #### H EPATIC, LIPASE, CBC, BMP #### [address] Monocytes (Bld) [#/Vol] 1.0 10*3/uL High 0.0-0.8 [facility] Comment on above: Performed By: #### H EPATIC, LIPASE, CBC, BMP #### [facility] [address] Monocytes/100 WBC (Bld) 18.78 % Normal 0.00-20.00 [facility] Comment on above: Performed By: #### H EPATIC, LIPASE, CBC, BMP #### [address] Monocytes/100 WBC (Bld) 8.0 % Normal . [facility] Comment on above: Performed By: #### H EPATIC, LIPASE, CBC, BMP #### [facility] [address] [place] [address] Neutrophils (Bld) [#/Vol] 9.0 10*3/uL High 1.8-7.7 [facility] Comment on above: Performed By: #### H EPATIC, LIPASE, CBC, BMP #### [address] Neutrophils/100 WBC (Bld) 72.4 % Normal . [facility] Comment on above: Performed By: #### H EPATIC, LIPASE, CBC, BMP #### [place] [address] [place] NRBC% 0.0 /100{WBC} Normal 0-0.5 [facility] Comment on above: Performed By: #### H EPATIC, LIPASE, CBC, BMP #### [facility] [address] [place] [address] [place] Platelet mean volume (Bld) [Entitic vol] 8.0 fL Normal 6.3-10.7 [facility] Comment on above: Performed By: #### H EPATIC, LIPASE, CBC, BMP #### [facility] [address] [place] [address] [place] Platelets (Bld) [#/Vol] 266 10*3/uL Normal 150-450 [facility] Comment on above: Performed By: #### H EPATIC, LIPASE, CBC, BMP #### [facility] [address] RBC (Bld) [#/Vol] 4.67 10*6/uL Normal 3.60-5.00 [facility] Comment on above: Performed By: #### H EPATIC, LIPASE, CBC, BMP #### [facility] [address] [place] [address] [place] WBC (Bld) [#/Vol] 12.4 10*3/uL High 3.8-11.6 [facility] Comment on above: Performed By: #### H EPATIC, LIPASE, CBC, BMP #### [facility] [address] Creatinine and Glomerular fi ltration rate.predicted panel (S/P/Bld)Ordered By: Agustin Llanes on 03-22-2022 Creatinine [Mass/Vol] 0.74 mg/dL 0.44-1.03 [facility] Dipstick and Microscopicon 0 03-22-2022 Appearance (U) Clear Normal Clear [facility] Comment on above: Order Comment: Name Collection Type:: Clean-Voided Midstream Performed By: #### U A #### [address] Bacteria,Urine 1+ High None Seen [facility] Comment on above: Order Comment: Name Collection Type:: Clean-Voided Midstream Performed By: #### U A #### [facility] [address] [place] [address] [place] Bilirubin,Urine Negative Normal Negative [facility] Comment on above: Order Comment: Name Collection Type:: Clean-Voided Midstream Performed By: #### U A #### [facility] [address] [place] [address] [place] Color (U) Yellow Normal Yellow [facility] Comment on above: Order Comment: Name Collection Type:: Clean-Voided Midstream Performed By: #### U A #### [facility] [address] [place] [address] [place] Glucose Ql (U) Normal Normal Normal [facility] Comment on above: Order Comment: Name Collection Type:: Clean-Voided Midstream Performed By: #### U A #### [facility] [address] [place] [address] [place] Hyaline Casts,Urine 0-8 Normal 0-8 [facility] Comment on above: Order Comment: Name Collection Type:: Clean-Voided Midstream Performed By: #### U A #### [facility] [address] [place] [address] Ketones Ql (U) Negative Normal Negative [facility] Comment on above: Order Comment: Name Collection Type:: Clean-Voided Midstream Performed By: #### U A #### [address] Leukocyte esterase Test strip Ql (U) 2+ High Negative [facility] Comment on above: Order Comment: Name Collection Type:: Clean-Voided Midstream Performed By: #### U A #### [address] Nitrite,Urine Positive High Negative [facility] Comment on above: Order Comment: Name Collection Type:: Clean-Voided Midstream Performed By: #### U A #### [facility] [address] [place] [address] Occult Blood,Urine Negative Normal Negative [facility] Comment on above: Order Comment: Name Collection Type:: Clean-Voided Midstream Performed By: #### U A #### [facility] [address] [place] [address] pH (U) 5.5 [pH] Normal 5.0-9.0 [facility] Comment on above: Order Comment: Name Collection Type:: Clean-Voided Midstream Performed By: #### U A #### [facility] [address] [place] [address] [place] Protein,Urine Negative Normal Negative [facility] Comment on above: Order Comment: Name Collection Type:: Clean-Voided Midstream Performed By: #### U A #### [place] [address] [place] RBC,Urine 3-4 Normal 0-4 [facility] Comment on above: Order Comment: Name Collection Type:: Clean-Voided Midstream Performed By: #### U A #### [facility] [address] [place] [address] Specificy [place],Urine 1.011 Normal 1.001-1.030 [facility] Comment on above: Order Comment: Name Collection Type:: Clean-Voided Midstream Performed By: #### U A #### [facility] [address] [place] [address] Squamous Epithelial Cell,Urine 1-2 Normal 0-2 [facility] Comment on above: Order Comment: Name Collection Type:: Clean-Voided Midstream Performed By: #### U A #### [facility] [address] [place] [address] Urobilinogen,Urine Normal Normal Normal [facility] Comment on above: Order Comment: Name Collection Type:: Clean-Voided Midstream Performed By: #### U A #### [facility] [address] [place] [address] WBC,Urine 10-19 High 0-4 [facility] Comment on above: Order Comment: Name Collection Type:: Clean-Voided Midstream Performed By: #### U A #### [facility] [address] [place] [address] Direct bilirubin measurement Ordered By: Agustin Llanes on 03-22-2022 Bilirubin.direct [Mass/Vol] 0.3 mg/dL 0.0-0.4 [facility] Eosinophils Auto (Bld) [#/Vo l]Ordered By: Agustin Llanes on 03-22-2022 Eosinophils (Bld) [#/Vol] 0.1 10*3/uL 0.0-0.45 [facility] Eosinophils/100 WBC Auto (Bl d)Ordered By: Agustin Llanes on 03-22-2022 Eosinophils/100 WBC (Bld) 0.7 % . [facility] Erythrocyte distribution wid th Auto (RBC) [Ratio]Ordered By: Agustin Llanes on 03-22-2022 Erythrocyte distribution width (RBC) [Ratio] 13.9 % 11.9-15.3 [facility] Estimated glomerular filtrat ion rate (GFR) non- AmericanOrdered By: Agustin Llanes on 03-22-2022 GFR/1.73 sq M.predicted among non-blacks MDRD (S/P/Bld) [Vol rate/Area] > 60 mL/Min [facility] Globulin Calc (S) [Mass/Vol] Ordered By: Agustin Llanes on 03-22-2022 Globulin (S) [Mass/Vol] 3.1 g/dL [facility] HCG ( test) IA.rapi d Ql (U)Ordered By: Agustin Llanes on 03-22-2022 HCG ( test) Ql (U) Negative [facility] HCG,Urineon 03-22-2022 Beta HCG ( test) Ql (U) Negative Normal [facility] Comment on above: Order Comment: Name Collection Type:: Clean-Voided Midstream Result Comment: PERF ORMED BY: [place] [address] PATHOLOGIST CROCHETER PUALA RODRIGUES M.D. Performed By: #### U A #### [address] Hematocrit Auto (Bld) [Volum e fraction]Ordered By: Agustin Llanes on 03-22-2022 Hematocrit (Bld) [Volume fraction] 45.7 % 34.0-46.4 [facility] Hemoglobin [Mass/volume] in BloodOrdered By: Agustin Llanes on 03-22-2022 Hemoglobin (Bld) [Mass/Vol] 15.2 g/dL 11.8-15.4 [facility] Hepatic Panelon 03-22-2022 Albumin [Mass/Vol] 4.1 g/dL Normal 3.2-5.5 [facility] Comment on above: Performed By: #### H EPATIC, LIPASE, CBC, BMP #### [facility] [address] [place] [address] Albumin/Globulin [Mass ratio] 1.3 {ratio} Normal [facility] Comment on above: Performed By: #### H EPATIC, LIPASE, CBC, BMP #### [facility] [address] [place] [address] [place] ALP [Catalytic activity/Vol] 156 U/L High 32-92 [facility] Comment on above: Performed By: #### H EPATIC, LIPASE, CBC, BMP #### [facility] [address] [place] [address] ALT [Catalytic activity/Vol] 19 U/L Normal 10-60 [facility] Comment on above: Performed By: #### H EPATIC, LIPASE, CBC, BMP #### [facility] [address] AST [Catalytic activity/Vol] 29 U/L Normal 10-42 [facility] Comment on above: Performed By: #### H EPATIC, LIPASE, CBC, BMP #### [address] Bilirubin [Mass/Vol] 0.5 mg/dL Normal 0.3-1.2 [facility] Comment on above: Performed By: #### H EPATIC, LIPASE, CBC, BMP #### [address] Bilirubin,Indirect 0.2 mg/dL Normal [facility] Comment on above: Performed By: #### H EPATIC, LIPASE, CBC, BMP #### [address] Bilirubin.indirect [Mass/Vol] 0.3 mg/dL Normal 0.0-0.4 [facility] Comment on above: Performed By: #### H EPATIC, LIPASE, CBC, BMP #### [facility] [address] [place] [address] Globulin (S) [Mass/Vol] 3.1 g/dL Normal [facility] Comment on above: Performed By: #### H EPATIC, LIPASE, CBC, BMP #### [facility] [address] [place] [address] Protein [Mass/Vol] 7.2 g/dL Normal 6.1-7.9 [facility] Comment on above: Performed By: #### H EPATIC, LIPASE, CBC, BMP #### [address] Ketones Auto test strip (U) [Mass/Vol]Ordered By: Agustin Llanes on 03-22-2022 Ketones (U) [Mass/Vol] Negative Negative Fi [facility] - Chemistry and C hemistry - challengeOrdered By: Agustin Llanes on 03-22-2022 Lipase [Catalytic activity/Vol] 122.0 U/L [facility] - UrinalysisOrder ed By: Agustin Llanes on 03-22-2022 Hyaline casts LM Ql (Urine sed) 0-8 [LPF] 0-8 [facility] Leukocytes [#/volume] correc aurelia for nucleated erythrocytes in Blood by Automated counOrdered By: Agustin Llanes on 03-22-2022 WBC corrected for nucl RBC Auto (Bld) [#/Vol] 12.4 10*3/uL 3.8-11.6 [facility] Lipaseon 03-22-2022 Lipase [Catalytic activity/Vol] 122.0 U/L High [address] [place] [address] Comment on above: Result Comment: PERF ORMED BY: [place] [address] PATHOLOGIST CROCHETER PAULA RODRIGUES M.D. Performed By: #### H EPATIC, LIPASE, CBC, BMP #### [address] Lymphocytes Auto (Bld) [#/Vo l]Ordered By: Agustin Llanes on 03-22-2022 Lymphocytes (Bld) [#/Vol] 2.2 10*3/uL 1.00-4.8 [facility] Lymphocytes/100 WBC Auto (Bl d)Ordered By: Agustin Llanes on 03-22-2022 Lymphocytes/100 WBC (Bld) 18.0 % . [facility] MCH Auto (RBC) [Entitic mass ]Ordered By: Agusitn Llanes on 03-22-2022 MCH (RBC) [Entitic mass] 32.5 pg 24.7-34.3 [facility] MCHC Auto (RBC) [Mass/Vol]Or dered By: Agustin Llanes on 03-22-2022 MCHC (RBC) [Mass/Vol] 33.2 g/dL 32.0-35.0 [facility] MCV Auto (RBC) [Entitic vol] Ordered By: Agustin Llanes on 03-22-2022 MCV (RBC) [Entitic vol] 98.0 fL 80-100 [facility] Monocyte distribution width [Entitic volume] in Blood by AutomatedOrdered By: Agustin Llanes on 03-22-2022 Monocyte distribution width Auto (Bld) [Entitic vol] 18.78 % 0.00-20.00 [facility] Monocytes Auto (Bld) [#/Vol] Ordered By: Agustin Llanes on 03-22-2022 Monocytes (Bld) [#/Vol] 1.0 10*3/uL 0.0-0.8 [facility] Monocytes/100 WBC Auto (Bld) Ordered By: Agustin Llanes on 03-22-2022 Monocytes/100 WBC (Bld) 8.0 % . [facility] Neutrophils Auto (Bld) [#/Vo l]Ordered By: Agustin Llanes on 03-22-2022 Neutrophils (Bld) [#/Vol] 9.0 10*3/uL 1.8-7.7 [facility] Neutrophils/100 WBC Auto (Bl d)Ordered By: Agustin Llanes on 03-22-2022 Neutrophils/100 WBC (Bld) 72.4 % . [facility] Nitrite Test strip Ql (U)Ord ered By: Agustin Llanes on 03-22-2022 Nitrite Ql (U) Positive Negative [facility] No Panel InformationOrdered By: Agustin Llanes on 03-22-2022 Estimated GFR () > 60 mL/Min [facility] Comment on above: GFR estimated refere nce range: According to KDOQI guidelines, <60 ml/min/1.73m2 is sufficient to diagnose a patient with chronic kidney disease. Pharmacy Creatinine Clearance (Chem 70.34 [facility] Nucleated erythrocytes [Pres ence] in Blood by Automated countOrdered By: Agustin Llanes on 03-22-2022 Nucleated RBC Auto Ql (Bld) 0.0 /100{WBC} 0-0.5 [facility] Platelet mean volume Auto (B ld) [Entitic vol]Ordered By: Agustin Llanes on 03-22-2022 Platelet mean volume (Bld) [Entitic vol] 8.0 fL 6.3-10.7 [facility] Platelets Auto (Bld) [#/Vol] Ordered By: Agustin Llanes on 03-22-2022 Platelets (Bld) [#/Vol] 266 10*3/uL 150-450 [facility] Protein Auto test strip (U) [Mass/Vol]Ordered By: Agustin Llanes on 03-22-2022 Protein (U) [Mass/Vol] Negative Negative Fi [facility] Protein [Mass/volume] in Ser um or PlasmaOrdered By: Agustin Llanes on 03-22-2022 Protein [Mass/Vol] 7.2 g/dL 6.1-7.9 [facility] RBC Auto (Bld) [#/Vol]Ordere d By: Agustin Llanes on 03-22-2022 RBC (Bld) [#/Vol] 4.67 10*6/uL 3.60-5.00 [facility] Serum or plasma alanine hughes otransferase measurement without P-5'-P (enzymatic activiOrdered By: Agustin Llanes on 03-22-2022 ALT No additional P-5'-P [Catalytic activity/Vol] 19 U/L 10-60 [facility] Serum or plasma albumin/glob ulin mass ratioOrdered By: Agustin Llanes on 03-22-2022 Albumin/Globulin [Mass ratio] 1.3 {ratio} [facility] Serum or plasma alkaline jaqueline sphatase measurement (enzymatic activity/volume)Ordered By: Agustin Llanes on 03-22-2022 ALP [Catalytic activity/Vol] 156 U/L 32-92 [facility] Serum or plasma anion gap de terminationOrdered By: Agustin Llanes on 03-22-2022 Anion gap [Moles/Vol] 12.6 mmol/L 6.0-15.0 [facility] Serum or plasma aspartate am inotransferase measurement (enzymatic activity/volume)Ordered By: Agustin Llanes on 03-22-2022 AST [Catalytic activity/Vol] 29 U/L 10-42 [facility] Serum or plasma calcium priscilla urement (mass/volume)Ordered By: Agustin Llanes on 03-22-2022 Calcium [Mass/Vol] 9.9 mg/dL 8.2-10.2 [facility] Serum or plasma chloride daron surement (moles/volume)Ordered By: Agustin Llanes on 03-22-2022 Chloride [Moles/Vol] 103 mmol/L 95-114 [facility] Serum or plasma glucose priscilla urement (mass/volume)Ordered By: Agustin Llanes on 03-22-2022 Glucose [Mass/Vol] 106 mg/dL 70-100 [facility] Comment on above: ADA recommended refe rence rangeRandom Glucose Reference Range is dependent on time and content of last meal. Glucose of more than 200 mg/dL in a nonstressed, ambulatory subject supports the diagnosis of Diabetes Mellitus. Serum or plasma non-glucuron idated bilirubin measurement (mass/volume)Ordered By: Agustin Llanes on 03-22-2022 Bilirubin.indirect [Mass/Vol] 0.2 mg/dL [facility] Serum or plasma potassium me asurement (moles/volume)Ordered By: Agustin Llanes on 03-22-2022 Potassium [Moles/Vol] 4.5 mmol/L 3.5-5.1 [facility] Serum or plasma sodium measu rement (moles/volume)Ordered By: Agustin Llanes on 03-22-2022 Sodium [Moles/Vol] 138 mmol/L 136-146 [facility] Serum or plasma total biliru bin measurement (mass/volume)Ordered By: Agustin Llanes on 03-22-2022 Bilirubin [Mass/Vol] 0.5 mg/dL 0.3-1.2 [facility] Serum or plasma total carbon dioxide measurement (moles/volume)Ordered By: Agustin Llanes on 03-22-2022 CO2 [Moles/Vol] 26.9 mmol/L 22.0-30.0 [facility] Serum or plasma urea nitroge n measurement (mass/volume)Ordered By: Agustin Llanes on 03-22-2022 Urea nitrogen [Mass/Vol] 8 mg/dL 9-23 [facility] Specific gravity Auto test s trip (U) [Rel density]Ordered By: Agustin Llanes on 03-22-2022 Specific gravity (U) [Rel density] 1.011 1.001-1.030 [facility] Squamous epithelial cells de tection in urine sediment by light microscopyOrdered By: Agustin Llanes on 03-22-2022 Epithelial cells.squamous LM Ql (Urine sed) 1-2 [HPF] 0-2 [facility] Urine Cultureon 03-22-2022 Bacteria identified Cx Nom (U) ORGANISM: Escherichia coli (O:ESCCOL) [place] Count >100,000 Aerobic SIMI Charge ([id number]) --- SUSCEPTIBILITY -- ORGANISM: O:ESCCOL ANTIBIOTIC INTERPRETATION SIMI Amikacin S <16 Amoxacillin/K Clavulanate S <8 Ampicillin R >16 Ampicillin/Sulbactam I 1616/8 Aztreonam S <4 Cefazolin S <2 Cefepime S <2 Ceftazidime S <1 Ceftazidime/Avibactam S <4 Ceftolozane/Tazobactam S <2 Ceftriaxone S <1 Cefuroxime S <4 Ciprofloxacin S <0.25 Ertapenem S <0.5 Gentamicin S <2 Levofloxacin S <0.5 Meropenem S <1 Meropenem/Vaborbactam S <2 Nitrofurantoin S <32 Piperacillin/Tazobacta m S <8 Tetracycline S <4 Tigecycline S <2 Tobramycin S <2 Trimethoprim/Sulfameth oxazole S <0.5 S = SUSCEPTIBLE I = INTERMEDIATE R = RESISTANT BLANK = DATA NOT AVAILABLE, OR DRUG NOT ADVISABLE OR TESTED R* = RESISTANCE DUE TO EXTENDED SPECTRUM BETA-LACTAMASES ESBL = EXTENDED SPECTRUM BETA-LACTAMASE TFG = THYMIDINE-DEPENDENT STRAIN JASSI = BETA-LACTAMASE POSITIVE IB = INDUCIBLE BETA-LACTAMASE. APPEARS IN PLACE OF 'S' WITH SPECIES KNOWN TO POSSESS INDUCIBLE BETA-LACTAMASES. POTENTIALLY THEY MAY BECOME RESISTANT TO ALL B-LACTAM DRUGS. PERFORMED BY: [facility] [address] [place] [address] PATHOLOGIST CROCHETER PAULA RODRIGUES M.D. Normal [facility] Comment on above: Performed By: #### U A #### [facility] [address] Urine bacteria detection by automated methodOrdered By: Agustin Llanes on 03-22-2022 Bacteria Auto Ql (U) 1+ None Seen [facility] Urine clarity by refractomet ry automatedOrdered By: Agustin Llanes on 03-22-2022 Clarity Refractometry automated (U) Clear Clear [facility] Urine glucose measurement by automated test strip (mass/volume)Ordered By: Agustin Llanes on 03-22-2022 Glucose Auto test strip (U) [Mass/Vol] Normal mg/dL Normal [facility] Urine hemoglobin detection b y automated test stripOrdered By: Agustin Llanes on 03-22-2022 Hemoglobin Auto test strip Ql (U) Negative Negative [facility] Urine leukocyte esterase det ection by automated test stripOrdered By: Agustin Llanes on 03-22-2022 Leukocyte esterase Auto test strip Ql (U) 2+ Negative [facility] Urobilinogen Auto test strip (U) [Mass/Vol]Ordered By: Agustin Llanes on 03-22-2022 Urobilinogen (U) [Mass/Vol] Normal mg/dL Normal [facility] WBC Auto (Bld) [#/Vol]Ordere d By: Agustin Llanes on 03-22-2022 WBC (Bld) [#/Vol] 12.4 10*3/uL 3.8-11.6 [facility] pH Auto test strip (U)Ordere d By: Agustin Llanes on 03-22-2022 pH (U) 5.5 [pH] 5.0-9.0 [facility] AMYLASEon 03-19-2022 Amylase [Catalytic activity/Vol] 297 U/L Critically high 25-115 [facility] Comment on above: Performed By: #### L IPA, CMP, CRP, NAT #### [facility] [address] [address] [address] Keturah Fisher CBC AUTO DIFFon 03-19-2022 BASO # 0.1 103/ul Normal 0.0-0.1 [facility] Comment on above: Performed By: #### L IPA, CMP, CRP, NAT #### [facility] [address] [address] [address] Keturah Fisher Basophils/100 WBC (Bld) 0.6 % Normal 0.2-2.0 [facility] Comment on above: Performed By: #### L IPA, CMP, CRP, NAT #### [facility] [address] [place] [address] Dr. Keturah Fisher EO # 0.1 103/ul Normal 0.0-0.7 [facility] Comment on above: Performed By: #### L IPA, CMP, CRP, NAT #### [facility] [address] [place] [address] Dr. Keturah Fisher Eosinophils/100 WBC (Bld) 0.5 % Critically low 0.9-7.0 [facility] Comment on above: Performed By: #### L IPA, CMP, CRP, NAT #### [facility] [address] [place] [address] Dr. Keturah Fisher Erythrocyte distribution width (RBC) [Ratio] 13.4 % Normal 11.0-15.0 [facility] Comment on above: Performed By: #### L IPA, CMP, CRP, NAT #### [facility] [address] [place] [address] Dr. Keturah Fisher Hemoglobin (Bld) [Mass/Vol] 15.7 g/dL Normal 12.0-16.0 [facility] Comment on above: Performed By: #### L IPA, CMP, CRP, NAT #### [facility] [address] [place] [address] Dr. Keturah Fisher IG # 0.06 10e3/ul Critically high 0.00-0.03 [facility] Comment on above: Performed By: #### L IPA, CMP, CRP, NAT #### [facility] [address] [place] [address] Dr. Keturah Fisher IG % 0.4 % Normal 0.0-0.5 [facility] Comment on above: Performed By: #### L IPA, CMP, CRP, NAT #### [facility] [address] [place] [address] Dr. Keturah Fisher LYMPH # 2.6 103/ul Normal 1.2-3.8 [facility] Comment on above: Performed By: #### L IPA, CMP, CRP, NAT #### [facility] [address] [place] [address] Dr. Keturah Fisher Lymphocytes/100 WBC (Bld) 18.1 % Critically low 20.5-60.0 [facility] Comment on above: Performed By: #### L IPA, CMP, CRP, NAT #### [facility] [address] [place] [address] Dr. Keturah Fisher MANUAL DIFF REQ NO Normal [facility] Comment on above: Performed By: #### L IPA, CMP, CRP, NAT #### [facility] [address] [place] [address] Dr. Keturah Fisher MCH (RBC) [Entitic mass] 32.4 pg Normal 26.7-34.0 [facility] Comment on above: Performed By: #### L IPA, CMP, CRP, NAT #### [facility] [address] [place] [address] Dr. Keturah Fisher MCHC (RBC) [Mass/Vol] 32.5 g/dL Normal 29.9-35.2 [facility] Comment on above: Performed By: #### L IPA, CMP, CRP, NAT #### [facility] [address] [place] [address] Dr. Keturah Fisher MCV (RBC) [Entitic vol] 99.8 fL Critically high 81.0-99.0 [facility] Comment on above: Performed By: #### L IPA, CMP, CRP, NAT #### [facility] [address] [place] [address] Dr. Keturah Fisher MONO # 0.9 103/ul Critically high 0.3-0.8 [facility] Comment on above: Performed By: #### L IPA, CMP, CRP, NAT #### [facility] [address] [place] [address] Dr. Keturah Fisher Monocytes/100 WBC (Bld) 5.9 % Normal 1.7-12.0 [facility] Comment on above: Performed By: #### L IPA, CMP, CRP, NAT #### [facility] [address] [place] [address] Dr. Keturah Fisher NEUT # 10.8 103/ul Critically high 1.4-6.5 [facility] Comment on above: Performed By: #### L IPA, CMP, CRP, NAT #### [facility] [address] [place] [address] Dr. Keturah Fisher Neutrophils/100 WBC (Bld) 74.5 % Normal 43.0-75.0 [facility] Comment on above: Performed By: #### L IPA, CMP, CRP, NAT #### [facility] [address] [place] [address] Dr. Keturah Fisher Platelet mean volume (Bld) [Entitic vol] 9.7 fL Normal 9.5-13.5 [facility] Comment on above: Performed By: #### L IPA, CMP, CRP, NAT #### [facility] [address] [place] [address] Dr. Keturah Fisher PLT 279 103/ul Normal 150-450 [facility] Comment on above: Performed By: #### L IPA, CMP, CRP, NTA #### [facility] [address] [place] [address] Dr. Keturah Fisher RBC 4.84 106/ul Normal 4.20-5.40 [facility] Comment on above: Performed By: #### L IPA, CMP, CRP, NAT #### [facility] [address] [place] [address] Dr. Keturah Fisher WBC 14.5 103/ul Critically high 4.0-11.0 [facility] Comment on above: Performed By: #### L IPA, CMP, CRP, NAT #### [facility] [address] [place] [address] ABD/PELVIS WO CONon 03-19 CT ABD/PELVIS WO CON INDICATION: NAUSEA WITH VOMITING, UNSPECIFIED EXAMINATION: CT ABDOMEN AND PELVIS WITHOUT CONTRAST TECHNIQUE: Helically acquired images were obtained of the abdomen and pelvis without IV contrast. A radiation dose optimization technique was used for this scan. ORAL CONTRAST: None. COMPARISON: 12/13/2021 FINDINGS: The overall quality the examination is mildly compromised by motion artifact. LOWER CHEST: The visualized portions of the lung bases are clear. The heart size is within normal limits. A pericardial effusion is not identified. LIVER: No hepatic mass or lesion is identified. GALLBLADDER AND BILIARY TREE: The gallbladder is absent. No intra- or extrahepatic biliary ductal dilation is identified. STOMACH: A small hiatal hernia is unchanged. PANCREAS: A pancreatic mass or lesion is not identified. The pancreatic duct does not appear dilated. SPLEEN: A splenic lesion is not identified. ADRENAL GLANDS: The right adrenal gland appears normal. A nonspecific left adrenal gland nodule is currently measuring 1.2 cm, unchanged since the prior. KIDNEYS AND URETERS: The kidneys appear normal. The ureters are unremarkable in appearance. PERITONEUM: No free intra-abdominal air is identified. No free pelvic fluid is detected. BOWEL: No bowel distension is observed. No significant colonic diverticula are observed. LYMPH NODES: No enlarged mesenteric or retroperitoneal lymph nodes. VESSELS: An aneurysm is not identified. There are scattered calcifications distributed throughout the abdominal aorta. UTERUS: Absent. OVARIES: The ovaries are not identified. URINARY BLADDER: Unremarkable. ABDOMINAL WALL: No abdominal or pelvic wall hernia. APPENDIX: The appendix appears normal. MUSCULOSKELETAL: Advanced degenerative disc disease at the L1-2 level is unchanged. IMPRESSION: 1. Small hiatal hernia, unchanged. 2. Stable left adrenal gland nodule. 3. An acute abnormality is not identified. Specifically, there is no CT evidence of gastric outlet obstruction, gastroparesis, pancreatitis or small bowel obstruction. Electronically authenticated by: AGUSTIN HIGHTOWER Date: 2022-03-19 19:[address] [facility] LIPASEon 03-19-2022 Lipase [Catalytic activity/Vol] 1573.0 U/L Critically high 73.0-393.0 [facility] Comment on above: Performed By: #### L IPA, CMP, CRP, NAT #### [facility] [address] [place], [place] [address] Dr. Ketruah Fisher PROF 14(COMP METB)on 023 Albumin [Mass/Vol] 4.3 g/dL Normal 3.4-5.0 [facility] Comment on above: Performed By: #### L IPA, CMP, CRP, NAT #### [facility] [address] [place], [place] [address] Dr. Keturah Fisher Albumin/Globulin [Mass ratio] 1.1 {ratio} Normal [facility] Comment on above: Performed By: #### L IPA, CMP, CRP, NAT #### [facility] [address] [place] [address] Dr. Keturah Fisher ALP [Catalytic activity/Vol] 222 U/L Critically high 46-116 [facility] Comment on above: Performed By: #### L IPA, CMP, CRP, NAT #### [facility] [address] [place] [address] Dr. Keturah Fisher ALT [Catalytic activity/Vol] 18 U/L Normal 14-59 [facility] Comment on above: Performed By: #### L IPA, CMP, CRP, NAT #### [facility] [address] [place] [address] Dr. Keturah Fisher Anion gap [Moles/Vol] 10.7 mmol/L Normal [facility] Comment on above: Performed By: #### L IPA, CMP, CRP, NAT #### [facility] [address] [place] [address] Dr. Keturah Fisher AST [Catalytic activity/Vol] 19 U/L Normal 15-37 [facility] Comment on above: Performed By: #### L IPA, CMP, CRP, NAT #### [facility] [address] [place] [address] Dr. Keturah Fisher Bilirubin [Mass/Vol] 0.2 mg/dL Normal 0.2-1.0 [facility] Comment on above: Performed By: #### L IPA, CMP, CRP, NAT #### [facility] [address] [place] [address] Dr. Keturah Fisher Calcium [Mass/Vol] 10.2 mg/dL Critically high 8.5-10.1 [facility] Comment on above: Performed By: #### L IPA, CMP, CRP, NAT #### [facility] [address] [place] [address] Dr. Keturah Fisher Chloride [Moles/Vol] 101 mmol/L Normal 98-107 [facility] Comment on above: Performed By: #### L IPA, CMP, CRP, NAT #### [facility] [address] [address] [address] Keturah Fisher CO2 [Moles/Vol] 29.1 mmol/L Normal 21.0-32.0 [facility] Comment on above: Performed By: #### L IPA, CMP, CRP, NAT #### [facility] [address] [address] [address] Keturah Fisher Creatinine [Mass/Vol] 0.73 mg/dL Normal 0.55-1.02 [facility] Comment on above: Performed By: #### L IPA, CMP, CRP, NAT #### [facility] [address] [address] [address] Keturah Fisher EGFR-AF CITIZ[place] >60 Normal >=60 [facility] Comment on above: Performed By: #### L IPA, CMP, CRP, NAT #### [facility] [address] [address] [address] Keturah Fisher EGFR-NON AF CITIZEN OF [place] >60 Normal >=60 [facility] Comment on above: Performed By: #### L IPA, CMP, CRP, NAT #### [facility] [address] [address] [address] Keturah Fisher Globulin (S) [Mass/Vol] 4.0 g/dL Normal [facility] Comment on above: Performed By: #### L IPA, CMP, CRP, NAT #### [facility] [address] [address] [address] Keturah Fisher Glucose [Mass/Vol] 92 mg/dL Normal 74-106 [facility] Comment on above: Performed By: #### L IPA, CMP, CRP, NAT #### [facility] [address] [address] [address] Keturah Fisher Potassium [Moles/Vol] 3.8 mmol/L Normal 3.5-5.1 [facility] Comment on above: Performed By: #### L IPA, CMP, CRP, NAT #### [facility] [address] [address] [address] Keturah Fisher Protein [Mass/Vol] 8.3 g/dL Critically high 6.4-8.[address] [facility] Comment on above: Performed By: #### L IPA, CMP, CRP, NAT #### [facility] [address] [address] [address] Keturah Fisher Sodium [Moles/Vol] 137 mmol/L Normal 136-145 [facility] Comment on above: Performed By: #### L IPA, CMP, CRP, NAT #### [facility] [address] [address] [address] Keturah Fisher Urea nitrogen [Mass/Vol] 10.0 mg/dL Normal 7.0-18.0 [facility] Comment on above: Performed By: #### L IPA, CMP, CRP, NAT #### [facility] [address] [address] [address] Keturah Fisher Urea nitrogen/Creatinine [Mass ratio] 13.7 mg/mg Normal [facility] Comment on above: Performed By: #### L IPA, CMP, CRP, NAT #### [facility] [address] [address] [address] Keturah Fisher PROTIMEon 03-19-2022 INR Coag (PPP) [Relative time] {INR} Normal [facility] Comment on above: Performed By: #### P TT, PT ####[facility] [id number] [address]DrGopal Fisher INR GUIDELINES SEE BELOW Normal [facility] Comment on above: Result Comment: KARLY RED INR: 2.0 - 3.0 CONDITIONS NOT LISTED BELOW 2.5 - 3.5 FOR PROSTHETIC HEART VALVE REPLACEMENT 2.5 - 3.5 RECURRENT THROMBOSIS Performed By: #### P TT, PT ####[facility] [id number] [address]Dr. Keturah Fisher PT Coag (PPP) [Time] 9.4 s Normal 9.0-11.6 [facility] Comment on above: Performed By: #### P TT, PT ####[facility] [id number] [address]Dr. Keturah Fisher PTTon 03-19-2022 aPTT Coag (Bld) [Time] 26.1 s Normal 22.3-36.2 [facility] Comment on above: Performed By: #### P TT, PT ####[facility] [id number] [place], [place] [address]FoDr. Keturah Fisher TROPONIN, HIGH SENSITIVITYon 03-19-2022 HSTROP 4.0 pg/mL Normal 4.0-51.3 [facility] Comment on above: Result Comment: CUT- OFF POINTS HAVE BEEN ESTABLISHED BASED ON THE FOURTH UNIVERSAL DEFINITIONS OF MYOCARDIAL INFARCTION. THE UPPER REFERENCE LIMIT (URL) OF TROPONIN, DEFINED THE 99TH PERCENTILE OF cTnI DISTRIBUTION IN A REFERENCE POPULATION, HAS BEEN CONFIRMED THE DECISION THRESHOLD FOR WA DIAGNOSIS. Performed By: #### L IPA, CMP, CRP, NAT #### [facility] [address] [place], [place] [address] Dr. Keturah Fisher UPPER EUSon 01-28-2022 [facility] Gastroenter[facility] Patient Name: Chioma Rainey Procedure Date: 01/28/2022 8:55 AM Date of : 1970 Admit Type: Outpatient Age: 51 Room: EUS Proc Room 01 Gender: Female Note Status: Finalized Attending MD: Sabrina Dee MD, MPH, [id number] Procedure: Upper EUS Indications: Chronic pancreatitis, Celiac plexus block for pain secondary to chronic pancreatitis Providers: Sabrina Dee MD, MPH (Doctor), Akilah Gonzales, JOSE LUIS (Nurse), Lara Yost RN (Nurse), Montse Garcia, Crib Clerk (Crib Clerk), LOW Velazquez (Anesthesia Staff), Neri Goins MD (Anesthesia Staff) Patient Profile: This is a 51 year old female. Refer to note in patient chart for documentation of history and physical. Referring MD: Elie Nichols MD (Referring MD) Medicines: Monitored Anesthesia Care Complications: No immediate complications. Procedure: Pre-Anesthesia Assessment: - Prior to the procedure, a History and Physical was performed, and patient medications and allergies were reviewed. The patient is competent. The risks and benefits of the procedure and the sedation options and risks were discussed with the patient. All questions were answered and informed consent was obtained. Patient identification and proposed procedure were verified by the physician, the nurse, the rubber curer and the science technicians in the procedure room. Mental Status Examination: normal. Airway Examination: Mallampati Class II (the uvula but not tonsillar pillars visualized). Respiratory Examination: clear to auscultation. CV Examination: normal. Prophylactic Antibiotics: The patient requires prophylactic antibiotics. Prior Anticoagulants: The patient has taken no anticoagulant or antiplatelet agents. ASA Grade Assessment: III - A patient with severe systemic disease. After reviewing the risks and benefits, the patient was deemed in satisfactory condition to undergo the procedure. The anesthesia plan was to use monitored anesthesia care (MAC). Immediately prior to administration of medications, the patient was re-assessed for adequacy to receive sedatives. The heart rate, respiratory rate, oxygen saturations, blood pressure, adequacy of pulmonary ventilation, and response to care were monitored throughout the procedure. The physical status of the patient was re-assessed after the procedure. After obtaining informed consent, the endoscope was passed under direct vision. Throughout the procedure, the patient's blood pressure, pulse, and oxygen saturations were monitored continuously. The Endosonoscope was introduced through the mouth, and advanced to the duodenum for ultrasound examination from the esophagus, stomach and duodenum. The Endoscope was introduced through the mouth, and advanced to the duodenum for ultrasound examination from the esophagus, stomach and duodenum. The upper EUS was accomplished without difficulty. The patient tolerated the procedure well. Findings: ENDOSCOPIC FINDING: : The upper third of the esophagus, middle third of the esophagus and lower third of the esophagus were normal. A non-obstructing Schatzki ring was found at the gastroesophageal junction. The Z-line was regular and was found 35 cm from the incisors. A 3 cm hiatal hernia was present. The entire examined stomach was normal. The duodenal bulb, first portion of the duodenum and second portion of the duodenum were normal. ENDOSONOGRAPHIC FINDING: : There was dilation in the common bile duct which measured up to 9 mm. Evidence of a previous cholecystectomy was identified endosonographically. There was no si (more content not included)... LAB, [facility] Radiology Study observation (narrative) [facility] BONE DENSITY AXIAL (HIP, PEL VIS, SPINE)on 01-27-2022 BONE DENSITY AXIAL (HIP, PELVIS, SPINE) EXAM: BONE DENSITY AXIAL (HIP, PELVIS, SPINE) 01/27/2022 15:34 PM TECHNIQUE: DXA scanning using a [employer] Advance bone densitometer at the [facility] was performed on 01/27/2022 15:34 PM CLINICAL INDICATIONS: eval for metabolic bone disease RELEVANT CLINICAL HISTORY: K85.90:Recurrent acute pancreatitis Z87.891:History of smoking 25-50 pack years COMPARISON: There are no prior studies performed on this bone densitometer with which to make comparison. FINDINGS: 1. Quality of the examination at the L1-4 lumbar spine: Limited. L1 and L2 will be excluded due to degenerative changes. 2. Quality of the examination at the dual hip: Adequate. BONE MINERAL DENSITY (BMD) CURRENT BONE MINERAL DENSITY (BMD) Region: g/cm2 T-Score Lumbar 3-4 Spine: 1.009 -1.6 Left Femoral Neck: 0.601 -3.1 Left Total Hip: 0.634 -3.0 Right Femoral Neck: 0.601 -3.1 Right Total Hip: 0.649 -2.8 No comparison study available No radius imaging. IMPRESSION: Based on BMD and WHO criteria diagnosis is consistent with osteoporosis. Recommendations: Therapy is indicated. Recommend follow-up bone density testing according to patient's clinical status. Typically one year after initiation or change in therapy is appropriate with longer intervals once therapeutic effect is established. * The T-score reflects standard deviations above (+) or below (-) a 20-40 year-old, , female, [place] population. At this age, it is assumed that peak bone mass is reached. * The Z-score reflects standard deviations above (+) or below (-) an age, sex, ethnicity, and weight-matched population. * Osteoporosis is defined as a skeletal disorder characterized by compromised bone strength predisposing to an increased risk of fracture. Bone strength reflects the integration of two main features: BMD and bone quality (RAMIREZ 2001;285:785-795). Any history of fragility fracture is suggestive of osteoporosis, regardless of the BMD data acquired in this study. * Secondary causes of bone loss should be evaluated if clinically indicated as the etiology of low BMD cannot be determined by BMD measurement alone. The physician who interpreted this study is a Certified Clinical Human Resources Generalist by the International Society of Clinical Densitometry Maulik Reed M.D., CCD. Normal [facility] IMPRESSION: Based on BMD and WHO criteria diagnosis is consistent with osteoporosis. Recommendations: Therapy is indicated. Recommend follow-up bone density testing according to patient's clinical status. Typically one year after initiation or change in therapy is appropriate with longer intervals once therapeutic effect is established. * The T-score reflects standard deviations above (+) or below (-) a 20-40 year-old, , female, [place] population. At this age, it is assumed that peak bone mass is reached. * The Z-score reflects standard deviations above (+) or below (-) an age, sex, ethnicity, and weight-matched population. * Osteoporosis is defined as a skeletal disorder characterized by compromised bone strength predisposing to an increased risk of fracture. Bone strength reflects the integration of two main features: BMD and bone quality (RAMIREZ 2001;285:785-795). Any history of fragility fracture is suggestive of osteoporosis, regardless of the BMD data acquired in this study. * Secondary causes of bone loss should be evaluated if clinically indicated as the etiology of low BMD cannot be determined by BMD measurement alone. The physician who interpreted this study is a Certified Clinical Human Resources Generalist by the International Society of Clinical Densitometry Maulik Reed M.D., [facility]. OLOGY EXAM: BONE DENSITY AXIAL (HIP, PELVIS, SPINE) 01/27/2022 15:34 PM TECHNIQUE: DXA scanning using a [employer] Advance bone densitometer at the [facility] was performed on 01/27/2022 15:34 PM CLINICAL INDICATIONS: eval for metabolic bone disease RELEVANT CLINICAL HISTORY: K85.90:Recurrent acute pancreatitis Z87.891:History of smoking 25-50 pack years COMPARISON: There are no prior studies performed on this bone densitometer with which to make comparison. FINDINGS: 1. Quality of the examination at the L1-4 lumbar spine: Limited. L1 and L2 will be excluded due to degenerative changes. 2. Quality of the examination at the dual hip: Adequate. BONE MINERAL DENSITY (BMD) CURRENT BONE MINERAL DENSITY (BMD) Region: g/cm2 T-Score Lumbar 3-4 Spine: 1.009 -1.6 Left Femoral Neck: 0.601 -3.1 Left Total Hip: 0.634 -3.0 Right Femoral Neck: 0.601 -3.1 Right Total Hip: 0.649 -2.8 No comparison study available No radius imaging. RADIOLOGY Maulik Reed MD - 01/27/2022 EXAM: BONE DENSITY AXIAL (HIP, PELVIS, SPINE) 01/27/2022 15:34 PM TECHNIQUE: DXA scanning using a [employer] Advance bone densitometer at the [facility] was performed on 01/27/2022 15:34 PM CLINICAL INDICATIONS: eval for metabolic bone disease RELEVANT CLINICAL HISTORY: K85.90:Recurrent acute pancreatitis Z87.891:History of smoking 25-50 pack years COMPARISON: There are no prior studies performed on this bone densitometer with which to make comparison. FINDINGS: 1. Quality of the examination at the L1-4 lumbar spine: Limited. L1 and L2 will be excluded due to degenerative changes. 2. Quality of the examination at the dual hip: Adequate. BONE MINERAL DENSITY (BMD) CURRENT BONE MINERAL DENSITY (BMD) Region: g/cm2 T-Score Lumbar 3-4 Spine: 1.009 -1.6 Left Femoral Neck: 0.601 -3.1 Left Total Hip: 0.634 -3.0 Right Femoral Neck: 0.601 -3.1 Right Total Hip: 0.649 -2.8 No comparison study available No radius imaging. IMPRESSION IMPRESSION: Based on BMD and WHO criteria diagnosis is consistent with osteoporosis. Recommendations: Therapy is indicated. Recommend follow-up bone density testing according to patient's clinical status. Typically one year after initiation or change in therapy is appropriate with longer intervals once therapeutic effect is established. * The T-score reflects standard deviations above (+) or below (-) a 20-40 year-old, , female, [place] population. At this age, it is assumed that peak bone mass is reached. * The Z-score reflects standard deviations above (+) or below (-) an age, sex, ethnicity, and weight-matched population. * Osteoporosis is defined as a skeletal disorder characterized by compromised bone strength predisposing to an increased risk of fracture. Bone strength reflects the integration of two main features: BMD and bone quality (RAMIREZ 2001;285:785-795). Any history of fragility fracture is suggestive of osteoporosis, regardless of the BMD data acquired in this study. * Secondary causes of bone loss should be evaluated if clinically indicated as the etiology of low BMD cannot be determined by BMD measurement alone. The physician who interpreted this study is a Certified Clinical Human Resources Generalist by the International Society of Clinical Densitometry Maulik Reed M.D., [facility]. [facility] Radiology Study observation (narrative) [facility] BONE DENSITY AXIAL (HIP, PEL VIS, SPINE)Ordered By: Maulik Reed on 01-27-2022 [facility] Work Phone: CBC AUTO DIFFon 01-15-2022 BASO # 0.1 103/ul Normal 0.0-0.1 [facility] Comment on above: Performed By: #### C BC ####[facility] [address] [place], [place] [address]Dr. Keturah Fisher Basophils/100 WBC (Bld) 0.9 % Normal 0.2-2.0 [facility] Comment on above: Performed By: #### C BC ####[facility] [address] [place], [place] [address]DrGopal Fisher EO # 0.2 103/ul Normal 0.0-0.7 [facility] Comment on above: Performed By: #### C BC ####[facility] [address] [place], [place] [address]DrGopal Fisher Eosinophils/100 WBC (Bld) 2.8 % Normal 0.9-7.0 [facility] Comment on above: Performed By: #### C BC ####[facility] [address]fib[address] [place], [place] [address]DrGopal Fisher Erythrocyte distribution width (RBC) [Ratio] 12.9 % Normal 11.0-15.0 [facility] Comment on above: Performed By: #### C BC ####[facility] Pybtise[address]pg[address] [place], [place] [address]DrGopal Fisher Hematocrit (Bld) [Volume fraction] 41.7 % Normal 36.0-48.0 [facility] Comment on above: Performed By: #### C BC ####[facility] [address] [place] [address]Dr. Keturah Fisher Hemoglobin (Bld) [Mass/Vol] 14.0 g/dL Normal 12.0-16.0 [facility] Comment on above: Performed By: #### C BC ####[facility] Amfs[address] [place], [place] [address]Dr. Keturah Fisher IG # 0.01 10e3/ul Normal 0.00-0.03 [facility] Comment on above: Performed By: #### C BC ####[facility] Y[address]pie[address]ui[address] [place], [place] [address]Dr. Keturah Phillip IG % 0.1 % Normal 0.0-0.5 [facility] Comment on above: Performed By: #### C BC ####[facility] [address] [place], [place] [address]DrGopal Keturah Phillip LYMPH # 2.4 103/ul Normal 1.2-3.8 [facility] Comment on above: Performed By: #### C BC ####[facility] [address] [place], [place] [address]DrGopal Keturah Phillip Lymphocytes/100 WBC (Bld) 32.0 % Normal 20.5-60.0 [facility] Comment on above: Performed By: #### C BC ####[facility] Htdk[address]zes[address] [place], [place] [address]DrGopal Keturah Phillip MANUAL DIFF REQ NO Normal [facility] Comment on above: Performed By: #### C BC ####[facility] [address] [place], [place] [address]DrGopal Keturah Phillip MCH (RBC) [Entitic mass] 32.6 pg Normal 26.7-34.0 [facility] Comment on above: Performed By: #### C BC ####[facility] Oegqfg[address]ar[address] [place], [place] [address]DrGopal Keturah Phillip MCHC (RBC) [Mass/Vol] 33.6 g/dL Normal 29.9-35.2 [facility] Comment on above: Performed By: #### C BC ####[facility] [address] [address]DrGopal Fisher MCV (RBC) [Entitic vol] 97.0 fL Normal 81.0-99.0 [facility] Comment on above: Performed By: #### C BC ####[facility] Dbgyvjpgkp[address] [place], [place] [address]DrGopal Fisher MONO # 0.7 103/ul Normal 0.3-0.8 [facility] Comment on above: Performed By: #### C BC ####[facility] Kvfzxmsptq[address] [place], [place] [address]DrGopal Fisher Monocytes/100 WBC (Bld) 9.5 % Normal 1.7-12.0 [facility] Comment on above: Performed By: #### C BC ####[facility] Opnghqjotc[address] [place], [place] [address]DrGopal Fisher NEUT # 4.1 103/ul Normal 1.4-6.5 [facility] Comment on above: Performed By: #### C BC ####[facility] [address] [place], [place] [address]DrGopal Fisher Neutrophils/100 WBC (Bld) 54.7 % Normal 43.0-75.0 [facility] Comment on above: Performed By: #### C BC ####[facility] [address] [place], [place] [address]DrGopal Fisher Platelet mean volume (Bld) [Entitic vol] 9.6 fL Normal 9.5-13.5 [facility] Comment on above: Performed By: #### C BC ####[facility] [address] [place], [place] [address]DrGopal Fisher PLT 235 103/ul Normal 150-450 [facility] Comment on above: Performed By: #### C BC ####[facility] [address] [place], [place] [address]DrGopal Fisher RBC 4.30 106/ul Normal 4.20-5.40 [facility] Comment on above: Performed By: #### C BC ####[facility] [address] [address]Dr. Keturah Fisher WBC 7.6 103/ul Normal 4.0-11.0 [facility] Comment on above: Performed By: #### C BC ####[facility] [address] [place] [address]Dr. Keturah Fisher ER URINE PROFILEon 2 Bilirubin Ql (U) Negative Normal NEGATIVE [facility] Comment on above: Performed By: #### L IPA, CMP, CRP, NAT #### [facility] [address] [address] [address] Keturah Fisher Clarity (U) CLEAR Normal CLEAR [facility] Comment on above: Performed By: #### L IPA, CMP, CRP, NTA #### [facility] [address] [address] [address] Keturah Fisher Color (U) YELLOW Normal YELLOW [facility] Comment on above: Performed By: #### L IPA, CMP, CRP, NAT #### [facility] [address] [address] [address] Keturah BAH A micrscopic examination will be performed if indicated. Normal [facility] Comment on above: Performed By: #### L IPA, CMP, CRP, NAT #### [facility] [address] [address] [address] Keturah Fisher Glucose Ql (U) Negative Normal NEGATIVE [facility] Comment on above: Performed By: #### L IPA, CMP, CRP, NAT #### [facility] [address] [address] [address] Keturah Fisher Hemoglobin Ql (U) Negative Normal NEGATIVE [facility] Comment on above: Performed By: #### L IPA, CMP, CRP, NAT #### [facility] [address] [address] [address] Keturah Fisher Ketones Ql (U) Negative Normal NEGATIVE [facility] Comment on above: Performed By: #### L IPA, CMP, CRP, NAT #### [facility] [address] [address] [address] Keturah Fisher LEUKOCYTES Negative Normal NEGATIVE [facility] Comment on above: Performed By: #### L IPA, CMP, CRP, NAT #### [facility] [address] [place] [address] Dr. Keturah Fisher Nitrite Ql (U) Negative Normal NEGATIVE [facility] Comment on above: Performed By: #### L IPA, CMP, CRP, NAT #### [facility] [address] [address] [address] Keturah Fisehr pH (U) 5.5 [pH] Normal 5-9 [facility] Comment on above: Performed By: #### L IPA, CMP, CRP, NAT #### [facility] [address] [place] [address] Dr. Keturah Fisher SPEC GRAVITY >=1.030 Abnormal 1.005-<=1.[address] [facility] Comment on above: Performed By: #### L IPA, CMP, CRP, NAT #### [facility] [address] [place] [address] Dr. Keturah Fisher UA PROTEIN Negative Normal NEGATIVE/ TRACE [facility] Comment on above: Performed By: #### L IPA, CMP, CRP, NAT #### [facility] [address] [place] [address] Dr. Keturah Fisher UR MICRO IND NOT INDICATED Normal [facility] Comment on above: Performed By: #### L IPA, CMP, CRP, NAT #### [facility] [address] [place] [address] Dr. Keturah Fisher Urobilinogen Qn (U) 0.2 {Marizol'U}/dL Normal 0.2 - 1. 0 [facility] Comment on above: Performed By: #### L IPA, CMP, CRP, NAT #### [facility] [address] [place] [address] Dr. Keturah Fisher LIPASEon 01-15-2022 Lipase [Catalytic activity/Vol] 572.0 U/L Critically high 73.0-393.0 [facility] Comment on above: Performed By: #### C BC #### [facility] [address] [place] [address] Dr. Keturah Fisher URon 01-15-2022 , QUAL Negative Normal NEGATIVE [facility] Comment on above: Performed By: #### L IPA, CMP, CRP, NAT #### [facility] [address] [place] [address] Dr. Keturah Fisher PROF 14(COMP METB)on 022 Albumin [Mass/Vol] 3.8 g/dL Normal 3.4-5.0 [facility] Comment on above: Performed By: #### C BC #### [facility] [address] [place] [address] Dr. Keturah Fisher Albumin/Globulin [Mass ratio] 1.1 {ratio} Normal [facility] Comment on above: Performed By: #### C BC #### [facility] [address] [place] [address] Dr. Keturah Fisher ALP [Catalytic activity/Vol] 151 U/L Critically high 46-116 [facility] Comment on above: Performed By: #### C BC #### [facility] [address] [place] [address] Dr. Keturah Fisher ALT [Catalytic activity/Vol] 14 U/L Normal 14-59 [facility] Comment on above: Performed By: #### C BC #### [facility] [address] [place] [address] Dr. Keturah Fisher Anion gap [Moles/Vol] 5.5 mmol/L Normal [facility] Comment on above: Performed By: #### C BC #### [facility] [address] [place] [address] Dr. Keturah Fisher AST [Catalytic activity/Vol] 16 U/L Normal 15-37 [facility] Comment on above: Performed By: #### C BC #### [facility] [address] [place] [address] Dr. Keturah Fisher Bilirubin [Mass/Vol] 0.1 mg/dL Critically low 0.2-1.0 [facility] Comment on above: Performed By: #### C BC #### [facility] [address] [address] [address] Keturah Fisher Calcium [Mass/Vol] 9.5 mg/dL Normal 8.5-10.1 [facility] Comment on above: Performed By: #### C BC #### [facility] [address] [address] [address] Keturah Fisher Chloride [Moles/Vol] 105 mmol/L Normal 98-107 [facility] Comment on above: Performed By: #### C BC #### [facility] [address] [address] [address] Keturah Fisher CO2 [Moles/Vol] 30.0 mmol/L Normal 21.0-32.0 [facility] Comment on above: Performed By: #### C BC #### [facility] [address] [place] [address] Dr. Keturah Fisher Creatinine [Mass/Vol] 0.90 mg/dL Normal 0.55-1.02 [facility] Comment on above: Performed By: #### C BC #### [facility] [address] [place] [address] Dr. Keturah Fisher EGFR-AF CITIZEN OF [place] >60 Normal >=60 [facility] Comment on above: Performed By: #### C BC #### [facility] [address] [place] [address] Dr. Keturah Fisher EGFR-NON AF CITIZEN OF [place] >60 Normal >=60 [facility] Comment on above: Performed By: #### C BC #### [facility] [address] [place] [address] Dr. Keturah Fisher Globulin (S) [Mass/Vol] 3.4 g/dL Normal [facility] Comment on above: Performed By: #### C BC #### [facility] [address] [place] [address] Dr. Keturah Fisher Glucose [Mass/Vol] 82 mg/dL Normal 74-106 [facility] Comment on above: Performed By: #### C BC #### [facility] [address] [place] [address] Dr. Keturah Fisher Potassium [Moles/Vol] 3.5 mmol/L Normal 3.5-5.1 [facility] Comment on above: Performed By: #### C BC #### [facility] [address] [address] [address] Keturah Fisher Protein [Mass/Vol] 7.2 g/dL Normal 6.4-8.2 [facility] Comment on above: Performed By: #### C BC #### [facility] [address] [address] [address] Keturah Fisher Sodium [Moles/Vol] 137 mmol/L Normal 136-145 [facility] Comment on above: Performed By: #### C BC #### [facility] [address] [address] [address] Keturah Fisher Urea nitrogen [Mass/Vol] 12.0 mg/dL Normal 7.0-18.0 [facility] Comment on above: Performed By: #### C BC #### [facility] [address] [address] [address] Keturah Fisher Urea nitrogen/Creatinine [Mass ratio] 13.3 mg/mg Normal [facility] Comment on above: Performed By: #### C BC #### [facility] [address] [address] [address] Keturah Fisher Basic Metabolic Panel 12-07 Anion gap [Moles/Vol] 16.0 mmol/L High 6.0-15.0 [facility] Comment on above: Performed By: #### U A #### [facility] [address] [place] [address] [place] Calcium [Mass/Vol] 10.2 mg/dL Normal 8.2-10.2 [facility] Comment on above: Performed By: #### U A #### [facility] [address] [place] [address] [place] Chloride [Moles/Vol] 102 mmol/L Normal 95-114 [facility] Comment on above: Performed By: #### U A #### [facility] [address] [place] [address] [place] CO2 [Moles/Vol] 23.6 mmol/L Normal 22.0-30.0 [facility] Comment on above: Performed By: #### U A #### [facility] [address] Creatinine [Mass/Vol] 0.90 mg/dL Normal 0.44-1.03 [facility] Comment on above: Performed By: #### U A #### [facility] [address] [place] [address] [place] Creatinine Clr Calc Pharmacy 57.83 [facility] Comment on above: Performed By: #### U A #### [address] Estimated GFR ( [place] > 60 [facility] Comment on above: Result Comment: GFR estimated reference range: According to KDOQI guidelines, <60 ml/min/1.73m2 is sufficient to diagnose a patient with chronic kidney disease. Performed By: #### U A #### [address] Estimated GFR (Non- Am > 60 [facility] Comment on above: Performed By: #### U A #### [address] Glucose [Mass/Vol] 88 mg/dL Normal 70-100 [facility] Comment on above: Result Comment: [facility] om Glucose Reference Range is dependent on time and content of last meal. Glucose of more than 200 mg/dL in a nonstressed, ambulatory subject supports the diagnosis of Diabetes Mellitus. ADA recommended reference range Performed By: #### U A #### [place] [address] [place] Potassium [Moles/Vol] 3.6 mmol/L Normal 3.5-5.1 [facility] Comment on above: Performed By: #### U A #### [address] Sodium [Moles/Vol] 138 mmol/L Normal 136-146 [facility] Comment on above: Performed By: #### U A #### [address] Urea nitrogen [Mass/Vol] 7 mg/dL Low 11-29 [facility] Comment on above: Performed By: #### U A #### [address] Complete Blood Count Auto Di ffon 12-19-2021 Basophils (Bld) [#/Vol] 0.1 10*3/uL Normal 0.0-0.2 [facility] Comment on above: Result Comment: PERF ORMED BY: [place] [address] PATHOLOGIST CROCHETER PAULA RODRIGUES M.D. Performed By: #### U A #### [address] Basophils/100 WBC (Bld) 0.8 % Normal . [facility] Comment on above: Performed By: #### U A #### [address] Eosinophils (Bld) [#/Vol] 0.1 10*3/uL Normal 0.0-0.45 [facility] Comment on above: Performed By: #### U A #### [address] Eosinophils/100 WBC (Bld) 0.9 % Normal . [facility] Comment on above: Performed By: #### U A #### [address] Erythrocyte distribution width (RBC) [Ratio] 13.7 % Normal 11.9-15.3 [facility] Comment on above: Performed By: #### U A #### [address] Hematocrit (Bld) [Volume fraction] 44.3 % Normal 34.0-46.4 [facility] Comment on above: Performed By: #### U A #### [address] Hemoglobin (Bld) [Mass/Vol] 14.6 g/dL Normal 11.8-15.4 [facility] Comment on above: Performed By: #### U A #### [facility] [address] Lymphocytes (Bld) [#/Vol] 3.0 10*3/uL Normal 1.00-4.8 [facility] Comment on above: Performed By: #### U A #### [address] Lymphocytes/100 WBC (Bld) 24.0 % Normal . [facility] Comment on above: Performed By: #### U A #### [address] MCH (RBC) [Entitic mass] 32.2 pg Normal 24.7-34.3 [facility] Comment on above: Performed By: #### U A #### [address] MCV (RBC) [Entitic vol] 97.6 fL Normal 80-100 [facility] Comment on above: Performed By: #### U A #### [address] Mean Corpuscular HGB Conc 33.0 g/dL Normal 32.0-35.0 [facility] Comment on above: Performed By: #### U A #### [address] Monocytes (Bld) [#/Vol] 1.0 10*3/uL High 0.0-0.8 [facility] Comment on above: Performed By: #### U A #### [address] Monocytes/100 WBC (Bld) 7.6 % Normal . [facility] Comment on above: Performed By: #### U A #### [address] Neutrophils (Bld) [#/Vol] 8.5 10*3/uL High 1.8-7.7 [facility] Comment on above: Performed By: #### U A #### [facility] [address] Neutrophils/100 WBC (Bld) 66.7 % Normal . [facility] Comment on above: Performed By: #### U A #### [facility] [address] Nucleated RBC/100 WBC (Bld) [Ratio] 0.0 % Normal 0-0.5 [facility] Comment on above: Performed By: #### U A #### [address] Platelet mean volume (Bld) [Entitic vol] 8.2 fL Normal 6.3-10.7 [facility] Comment on above: Performed By: #### U A #### [address] Platelets (Bld) [#/Vol] 308 10*3/uL Normal 150-450 [facility] Comment on above: Performed By: #### U A #### [address] RBC (Bld) [#/Vol] 4.54 10*6/uL Normal 3.60-5.00 [facility] Comment on above: Performed By: #### U A #### [address] WBC (Bld) [#/Vol] 12.7 10*3/uL High 4.5-11.0 [facility] Comment on above: Performed By: #### U A #### [address] Hepatic Panelon 12-19-2021 Albumin [Mass/Vol] 4.0 g/dL Normal 3.2-5.5 [facility] Comment on above: Performed By: #### U A #### [address] Albumin/Globulin [Mass ratio] 1.4 {ratio} Normal [facility] Comment on above: Performed By: #### U A #### [facility] [address] [place] [address] ALP [Catalytic activity/Vol] 136 U/L High 32-92 [facility] Comment on above: Performed By: #### U A #### [address] ALT [Catalytic activity/Vol] 14 U/L Normal 10-60 [facility] Comment on above: Performed By: #### U A #### [address] AST [Catalytic activity/Vol] 25 U/L Normal 10-42 [facility] Comment on above: Performed By: #### U A #### [address] Bilirubin [Mass/Vol] 0.5 mg/dL Normal 0.3-1.2 [facility] Comment on above: Performed By: #### U A #### [address] Bilirubin,Indirect 0.4 mg/dL Normal [facility] Comment on above: Performed By: #### U A #### [address] Bilirubin.indirect [Mass/Vol] 0.1 mg/dL Normal 0.0-0.4 [facility] Comment on above: Performed By: #### U A #### [address] Globulin (S) [Mass/Vol] 2.8 g/dL Normal [facility] Comment on above: Performed By: #### U A #### [address] Protein [Mass/Vol] 6.8 g/dL Normal 6.1-7.9 [facility] Comment on above: Performed By: #### U A #### [address] Lipaseon 12-19-2021 Lipase [Catalytic activity/Vol] 99.0 U/L High 22-51 [facility] Comment on above: Result Comment: PERF ORMED BY: [place] [address] PATHOLOGIST CROCHETER PAULA RODRIGUES M.D. Performed By: #### U A #### [address] Urinalysison 12-19-2021 Appearance (U) Clear Normal Clear [facility] Comment on above: Order Comment: Name Collection Type:: Clean-Voided Midstream Performed By: #### U A #### [place] [address] [place] Bilirubin,Urine Negative Normal Negative [facility] Comment on above: Order Comment: Name Collection Type:: Clean-Voided Midstream Performed By: #### U A #### [place] [address] [place] Color (U) Yellow Normal Yellow [facility] Comment on above: Order Comment: Name Collection Type:: Clean-Voided Midstream Performed By: #### U A #### [place] [address] [place] Glucose Ql (U) Normal Normal Normal [facility] Comment on above: Order Comment: Name Collection Type:: Clean-Voided Midstream Performed By: #### U A #### [address] Ketones Ql (U) Trace High Negative [facility] Comment on above: Order Comment: Name Collection Type:: Clean-Voided Midstream Performed By: #### U A #### [place] [address] [place] Leukocyte esterase Test strip Ql (U) Negative Normal Negative [facility] Comment on above: Order Comment: Name Collection Type:: Clean-Voided Midstream Performed By: #### U A #### [place] [address] [place] Nitrite,Urine Negative Normal Negative [facility] Comment on above: Order Comment: Name Collection Type:: Clean-Voided Midstream Performed By: #### U A #### [address] [place] [address] [place] Occult Blood,Urine Negative Normal Negative [facility] Comment on above: Order Comment: Name Collection Type:: Clean-Voided Midstream Result Comment: PERF ORMED BY: [place] [address] PATHOLOGIST CROCHETER PAULA RODRIGUES M.D. Performed By: #### U A #### [address] pH (U) 5.0 [pH] Normal 5.0-9.0 [facility] Comment on above: Order Comment: Name Collection Type:: Clean-Voided Midstream Performed By: #### U A #### [address] Protein,Urine Negative Normal Negative [facility] Comment on above: Order Comment: Name Collection Type:: Clean-Voided Midstream Performed By: #### U A #### [address] Specificy [place],Urine 1.024 Normal 1.001-1.030 [facility] Comment on above: Order Comment: Name Collection Type:: Clean-Voided Midstream Performed By: #### U A #### [address] Urobilinogen,Urine Normal Normal Normal [facility] Comment on above: Order Comment: Name Collection Type:: Clean-Voided Midstream Performed By: #### U A #### [address] AMYLASEon 12-13-2021 Amylase [Catalytic activity/Vol] 268 U/L Critically high 25-115 [facility] Comment on above: Performed By: #### L IPA, CMP, CRP, NAT #### [facility] [address] [address] [address] Keturah Fisher CBC AUTO DIFFon 12-13-2021 BASO # 0.1 103/ul Normal 0.0-0.1 [facility] Comment on above: Performed By: #### L IPA, CMP, CRP, NAT #### [facility] [address] [place] [address] Dr. Keturah Fisher Basophils/100 WBC (Bld) 0.6 % Normal 0.2-2.0 [facility] Comment on above: Performed By: #### L IPA, CMP, CRP, NAT #### [facility] [address] [place] [address] Dr. Keturah Fisher EO # 0.1 103/ul Normal 0.0-0.7 [facility] Comment on above: Performed By: #### L IPA, CMP, CRP, NAT #### [facility] [address] [place] [address] Dr. Keturah Fisher Eosinophils/100 WBC (Bld) 1.2 % Normal 0.9-7.0 [facility] Comment on above: Performed By: #### L IPA, CMP, CRP, NAT #### [facility] [address] [place] [address] Dr. Keturah Fisher Erythrocyte distribution width (RBC) [Ratio] 13.2 % Normal 11.0-15.0 [facility] Comment on above: Performed By: #### L IPA, CMP, CRP, NAT #### [facility] [address] [place] [address] Dr. Keturah Fsiher Hematocrit (Bld) [Volume fraction] 44.7 % Normal 36.0-48.0 [facility] Comment on above: Performed By: #### L IPA, CMP, CRP, NAT #### [facility] [address] [place] [address] Dr. Keturah Fihser Hemoglobin (Bld) [Mass/Vol] 14.7 g/dL Normal 12.0-16.0 [facility] Comment on above: Performed By: #### L IPA, CMP, CRP, NAT #### [facility] [address] [place] [address] Dr. Keturah Fisher IG # 0.03 10e3/ul Normal 0.00-0.03 [facility] Comment on above: Performed By: #### L IPA, CMP, CRP, NAT #### [facility] [address] [place] [address] Dr. Keturah Fisher IG % 0.3 % Normal 0.0-0.5 [facility] Comment on above: Performed By: #### L IPA, CMP, CRP, NAT #### [facility] [address] [place] [address] Dr. Keturah Fisher LYMPH # 3.6 103/ul Normal 1.2-3.8 [facility] Comment on above: Performed By: #### L IPA, CMP, CRP, NAT #### [facility] [address] [place] [address] Dr. Keturah Fisher Lymphocytes/100 WBC (Bld) 32.7 % Normal 20.5-60.0 [facility] Comment on above: Performed By: #### L IPA, CMP, CRP, NAT #### [facility] [address] [place] [address] Dr. Keturah Fisher MANUAL DIFF REQ NO Normal [facility] Comment on above: Performed By: #### L IPA, CMP, CRP, NAT #### [facility] [address] [place] [address] Dr. Keturah Fisher MCH (RBC) [Entitic mass] 32.2 pg Normal 26.7-34.0 [facility] Comment on above: Performed By: #### L IPA, CMP, CRP, NAT #### [facility] [address] [place] [address] Dr. Keturah Fisher MCHC (RBC) [Mass/Vol] 32.9 g/dL Normal 29.9-35.2 [facility] Comment on above: Performed By: #### L IPA, CMP, CRP, NAT #### [facility] [address] [place] [address] Dr. Keturah Fisher MCV (RBC) [Entitic vol] 98.0 fL Normal 81.0-99.0 [facility] Comment on above: Performed By: #### L IPA, CMP, CRP, NAT #### [facility] [address] [place] [address] Dr. Keturah Fisher MONO # 1.1 103/ul Critically high 0.3-0.8 [facility] Comment on above: Performed By: #### L IPA, CMP, CRP, NAT #### [facility] [address] [address] [address] Keturah Fisher Monocytes/100 WBC (Bld) 9.7 % Normal 1.7-12.0 [facility] Comment on above: Performed By: #### L IPA, CMP, CRP, NAT #### [facility] [address] [place] [address] Dr. Keturah Fisher NEUT # 6.1 103/ul Normal 1.4-6.5 [facility] Comment on above: Performed By: #### L IPA, CMP, CRP, NAT #### [facility] [address] [place] [address] Dr. Keturah Fisher Neutrophils/100 WBC (Bld) 55.5 % Normal 43.0-75.0 [facility] Comment on above: Performed By: #### L IPA, CMP, CRP, NAT #### [facility] [address] [place] [address] Dr. Keturah Fisher Platelet mean volume (Bld) [Entitic vol] 9.7 fL Normal 9.5-13.5 [facility] Comment on above: Performed By: #### L IPA, CMP, CRP, NAT #### [facility] [address] [place] [address] Dr. Keturah Fisher PLT 274 103/ul Normal 150-450 [facility] Comment on above: Performed By: #### L IPA, CMP, CRP, NAT #### [facility] [address] [place] [address] Dr. Keturah Fisher RBC 4.56 106/ul Normal 4.20-5.40 [facility] Comment on above: Performed By: #### L IPA, CMP, CRP, NAT #### [facility] [address] [place] [address] Dr. Keturah Fisher WBC 10.9 103/ul Normal 4.0-11.0 [facility] Comment on above: Performed By: #### L IPA, CMP, CRP, NAT #### [facility] [address] [place] [address] Dr. Keturah Fisher CRPon 12-13-2021 CRP [Mass/Vol] mg/L Normal <=1.0 [facility] Comment on above: Performed By: #### L IPA, CMP, CRP, NAT #### [facility] [address] [address] ABD/PELV W CONon 12-14-19 CT ABD/PELV W CON EXAMINATION: CT ABD/PELV W CON HISTORY: Pancreatitis COMPARISON: 08/13/2021 TECHNIQUE: Axial images were obtained through the abdomen and pelvis following intravenous administration of iodinated contrast. Source images were used to create sagittal and coronal reconstructions. IV CONTRAST DOSAGE AND AGENT: 100 ccs Omnipaque 300 ENTERIC CONTRAST: None Dose reduction techniques were achieved by using automated exposure control and/or adjustment of mA and/or kV according to patient size and/or use of iterative reconstruction technique. FINDINGS: Abdomen The visualized portions of the lungs are clear. The size of the heart is within normal limits. A small hiatal hernia is new. No hepatic mass is identified. There is no intrahepatic bile duct dilatation. The gallbladder is absent. No intra- or extrahepatic biliary ductal dilation is identified. The spleen appears normal. The pancreas appears normal. The pancreatic duct is not dilated. There is no stranding of peripancreatic fat planes. The right adrenal gland appears normal. A nonspecific left adrenal gland nodule measures up to 1.5 cm. It dates back to at least 08/29/2018 when it measured up to 1 2 cm. The kidneys appear normal. No free intra-abdominal air is detected. No adenopathy is observed. There are scattered aortic calcifications. The small bowel does not appear distended. No air-fluid levels are identified. An abdominal wall hernia is not identified. Pelvis The colon does not appear distended. No significant colonic diverticula are observed. The appendix appears normal. The uterus is absent. The ovaries are not identified. No free pelvic fluid is observed. Musculoskeletal Advanced degenerative disc disease at the L1-2 level is unchanged. IMPRESSION: 1. Small hiatal hernia, new. 2. Slowly growing left adrenal gland nodule, likely an adenoma. 3. There are no CT findings to suggest pancreatitis. Electronically authenticated by: AGUSTIN HIGHTOWER Date: 2021-12-13 20:[address] [facility] LIPASEon 12-13-2021 Lipase [Catalytic activity/Vol] 1496.0 U/L Critically high 73.0-393.0 [facility] Comment on above: Performed By: #### L IPA, CMP, CRP, NAT #### [facility] [address] [address] [address] Keturah Fisher PROF 14(COMP METB)on 022 Albumin [Mass/Vol] 4.0 g/dL Normal 3.4-5.0 [facility] Comment on above: Performed By: #### L IPA, CMP, CRP, NAT #### [facility] [address] [address] [address] Keturah Fisher Albumin/Globulin [Mass ratio] 1.0 {ratio} Normal [facility] Comment on above: Performed By: #### L IPA, CMP, CRP, NAT #### [facility] [address] [address] [address] Keturah Fisher ALP [Catalytic activity/Vol] 166 U/L Critically high 46-116 [facility] Comment on above: Performed By: #### L IPA, CMP, CRP, NAT #### [facility] [address] [address] [address] Keturah Fisher ALT [Catalytic activity/Vol] 19 U/L Normal 14-59 [facility] Comment on above: Performed By: #### L IPA, CMP, CRP, NAT #### [facility] [address] [address] [address] Keturah Fisher Anion gap [Moles/Vol] 9.5 mmol/L Normal [facility] Comment on above: Performed By: #### L IPA, CMP, CRP, NAT #### [facility] [address] [address] [address] Keturah Fisher AST [Catalytic activity/Vol] 16 U/L Normal 15-37 [facility] Comment on above: Performed By: #### L IPA, CMP, CRP, NAT #### [facility] [address] [address] [address] Keturah Fisher Bilirubin [Mass/Vol] 0.1 mg/dL Critically low 0.2-1.0 [facility] Comment on above: Performed By: #### L IPA, CMP, CRP, NAT #### [facility] [address] [address] [address] Keturah Fisher Calcium [Mass/Vol] 9.6 mg/dL Normal 8.5-10.1 [facility] Comment on above: Performed By: #### L IPA, CMP, CRP, NAT #### [facility] [address] [place] [address] Dr. Keturah Fisher Chloride [Moles/Vol] 104 mmol/L Normal 98-107 [facility] Comment on above: Performed By: #### L IPA, CMP, CRP, NAT #### [facility] [address] [place] [address] Dr. Keturah Fisher CO2 [Moles/Vol] 29.7 mmol/L Normal 21.0-32.0 [facility] Comment on above: Performed By: #### L IPA, CMP, CRP, NAT #### [facility] [address] [place] [address] Dr. Keturah Fisher Creatinine [Mass/Vol] 0.85 mg/dL Normal 0.55-1.02 [facility] Comment on above: Performed By: #### L IPA, CMP, CRP, NAT #### [facility] [address] [place] [address] Dr. Keturah Fisher EGFR-AF [place]IZ[place] >60 Normal >=60 [facility] Comment on above: Performed By: #### L IPA, CMP, CRP, NAT #### [facility] [address] [place] [address] Dr. Keturah Fisher EGFR-NON AF CITIZEN OF [place] >60 Normal >=60 [facility] Comment on above: Performed By: #### L IPA, CMP, CRP, NAT #### [facility] [address] [place] [address] Dr. Keturah Fisher Globulin (S) [Mass/Vol] 3.9 g/dL Normal [facility] Comment on above: Performed By: #### L IPA, CMP, CRP, NAT #### [facility] [address] [place] [address] Dr. Keturah Fisher Glucose [Mass/Vol] 70 mg/dL Critically low 74-106 [facility] Comment on above: Performed By: #### L IPA, CMP, CRP, NAT #### [facility] [address] [address] [address] Keturah Fisher Potassium [Moles/Vol] 3.2 mmol/L Critically low 3.5-5.1 [facility] Comment on above: Performed By: #### L IPA, CMP, CRP, NAT #### [facility] [address] [place] [address] Dr. Keturah Fisher Protein [Mass/Vol] 7.9 g/dL Normal 6.4-8.2 [facility] Comment on above: Performed By: #### L IPA, CMP, CRP, NAT #### [facility] [address] [place] [address] Dr. Keturah Fisher Sodium [Moles/Vol] 140 mmol/L Normal 136-145 [facility] Comment on above: Performed By: #### L IPA, CMP, CRP, NAT #### [facility] [address] [place] [address] Dr. Keturah Fisher Urea nitrogen [Mass/Vol] 8.0 mg/dL Normal 7.0-18.0 [facility] Comment on above: Performed By: #### L IPA, CMP, CRP, NAT #### [facility] [address] [place] [address] Dr. Keturah Fisher Urea nitrogen/Creatinine [Mass ratio] 9.4 mg/mg Normal [facility] Comment on above: Performed By: #### L IPA, CMP, CRP, NAT #### [facility] [address] [place] [address] Dr. Keturah Fisher AMYLASEon 12-05-2021 Amylase [Catalytic activity/Vol] 223 U/L Critically high 25-115 [facility] Comment on above: Performed By: #### L IPA, CMP, CRP, NAT #### [facility] [address] [place] [address] Dr. Keturah Fisher CBC AUTO DIFFon 12-05-2021 BASO # 0.1 103/ul Normal 0.0-0.1 [facility] Comment on above: Performed By: #### C BC #### [facility] [address] [place] [address] Dr. Keturah Fisher Basophils/100 WBC (Bld) 0.7 % Normal 0.2-2.0 [facility] Comment on above: Performed By: #### C BC #### [facility] [address] [place] [address] Dr. Keturah Fisher EO # 0.2 103/ul Normal 0.0-0.7 [facility] Comment on above: Performed By: #### C BC #### [facility] [address] [place] [address] Dr. Keturah Fisher Eosinophils/100 WBC (Bld) 1.7 % Normal 0.9-7.0 [facility] Comment on above: Performed By: #### C BC #### [facility] [address] [place] [address] Dr. Keturah Fisher Erythrocyte distribution width (RBC) [Ratio] 13.0 % Normal 11.0-15.0 [facility] Comment on above: Performed By: #### C BC #### [facility] [address] [place] [address] Dr. Keturah Fisher Hematocrit (Bld) [Volume fraction] 44.9 % Normal 36.0-48.0 [facility] Comment on above: Performed By: #### C BC #### [facility] [address] [place] [address] Dr. Keturah Fisher Hemoglobin (Bld) [Mass/Vol] 15.1 g/dL Normal 12.0-16.0 [facility] Comment on above: Performed By: #### C BC #### [facility] [address] [place] [address] Dr. Keturah Fisher IG # 0.02 10e3/ul Normal 0.00-0.03 [facility] Comment on above: Performed By: #### C BC #### [facility] [address] [place] [address] Dr. Keturah Fisher IG % 0.2 % Normal 0.0-0.5 [facility] Comment on above: Performed By: #### C BC #### [facility] [address] [place] [address] Dr. Keturah Fisher LYMPH # 2.8 103/ul Normal 1.2-3.8 [facility] Comment on above: Performed By: #### C BC #### [facility] [address] [place] [address] Dr. Keturah Fisher Lymphocytes/100 WBC (Bld) 29.8 % Normal 20.5-60.0 [facility] Comment on above: Performed By: #### C BC #### [facility] [address] [place] [address] Dr. Keturah Fisher MANUAL DIFF REQ NO Normal [facility] Comment on above: Performed By: #### C BC #### [facility] [address] [place] [address] Dr. Keturah Fisher MCH (RBC) [Entitic mass] 32.4 pg Normal 26.7-34.0 [facility] Comment on above: Performed By: #### C BC #### [facility] [address] [place] [address] Dr. Keturah Fisher MCHC (RBC) [Mass/Vol] 33.6 g/dL Normal 29.9-35.2 [facility] Comment on above: Performed By: #### C BC #### [facility] [address] [place] [address] Dr. Keturah Fisher MCV (RBC) [Entitic vol] 96.4 fL Normal 81.0-99.0 [facility] Comment on above: Performed By: #### C BC #### [facility] [address] [place] [address] Dr. Keturah Fisher MONO # 0.6 103/ul Normal 0.3-0.8 [facility] Comment on above: Performed By: #### C BC #### [facility] [address] [place] [address] Dr. Keturah Fisher Monocytes/100 WBC (Bld) 6.3 % Normal 1.7-12.0 [facility] Comment on above: Performed By: #### C BC #### [facility] [address] [place] [address] Dr. Keturah Fisher NEUT # 5.7 103/ul Normal 1.4-6.5 [facility] Comment on above: Performed By: #### C BC #### [facility] [address] [place] [address] Dr. Keturah Fisher Neutrophils/100 WBC (Bld) 61.3 % Normal 43.0-75.0 [facility] Comment on above: Performed By: #### C BC #### [facility] [address] [place] [address] Dr. Keturah Fisher Platelet mean volume (Bld) [Entitic vol] 10.7 fL Normal 9.5-13.5 [facility] Comment on above: Performed By: #### C BC #### [facility] [address] [place] [address] Dr. Keturah Fisher PLT 217 103/ul Normal 150-450 [facility] Comment on above: Performed By: #### C BC #### [facility] [address] [place] [address] Dr. Keturah Fisher RBC 4.66 106/ul Normal 4.20-5.40 [facility] Comment on above: Performed By: #### C BC #### [facility] [address] [place] [address] Dr. Keturah Fisher WBC 9.2 103/ul Normal 4.0-11.0 [facility] Comment on above: Performed By: #### C BC #### [facility] [address] [place] [address] Dr. Keturah Fisher LIPASEon 12-05-2021 Lipase [Catalytic activity/Vol] 725.0 U/L Critically high 73.0-393.0 [facility] Comment on above: Performed By: #### L IPA, CMP, CRP, NAT #### [facility] [address] [place] [address] Dr. Keturha Fisher PROF 14(COMP METB)on 022 Albumin [Mass/Vol] 4.2 g/dL Normal 3.4-5.0 [facility] Comment on above: Performed By: #### L IPA, CMP, CRP, NAT #### [facility] [address] [place] [address] Dr. Keturah Fisher Albumin/Globulin [Mass ratio] 1.2 {ratio} Normal [facility] Comment on above: Performed By: #### L IPA, CMP, CRP, NAT #### [facility] [address] [place] [address] Dr. Keturah Fisher ALP [Catalytic activity/Vol] 158 U/L Critically high 46-116 [facility] Comment on above: Performed By: #### L IPA, CMP, CRP, NAT #### [facility] [address] [place] [address] Dr. Keturah Fisher ALT [Catalytic activity/Vol] 20 U/L Normal 14-59 [facility] Comment on above: Performed By: #### L IPA, CMP, CRP, NAT #### [facility] [address] [place] [address] Dr. Keturah Fisher Anion gap [Moles/Vol] 14.0 mmol/L Normal [facility] Comment on above: Performed By: #### L IPA, CMP, CRP, NAT #### [facility] [address] [place] [address] Dr. Keturah Fisher AST [Catalytic activity/Vol] 27 U/L Normal 15-37 [facility] Comment on above: Performed By: #### L IPA, CMP, CRP, NAT #### [facility] [address] [place] [address] Dr. Keturah Fisher Bilirubin [Mass/Vol] 0.3 mg/dL Normal 0.2-1.0 [facility] Comment on above: Performed By: #### L IPA, CMP, CRP, ANT #### [facility] [address] [place] [address] Dr. Keturah Fisher Calcium [Mass/Vol] 10.1 mg/dL Normal 8.5-10.1 [facility] Comment on above: Performed By: #### L IPA, CMP, CRP, NAT #### [facility] [address] [address] [address] Keturah Fisher Chloride [Moles/Vol] 105 mmol/L Normal 98-107 [facility] Comment on above: Performed By: #### L IPA, CMP, CRP, NAT #### [facility] [address] [address] [address] Keturah Fisher CO2 [Moles/Vol] 24.9 mmol/L Normal 21.0-32.0 [facility] Comment on above: Performed By: #### L IPA, CMP, CRP, NAT #### [facility] [address] [address] [address] Keturah Fisher Creatinine [Mass/Vol] 0.77 mg/dL Normal 0.55-1.02 [facility] Comment on above: Performed By: #### L IPA, CMP, CRP, NAT #### [facility] [address] [place] [address] Dr. Keturah Fisher EGFR-AF [place]IZ[place] >60 Normal >=60 [facility] Comment on above: Performed By: #### L IPA, CMP, CRP, NAT #### [facility] [address] [place] [address] Dr. Keturah Fisher EGFR-NON AF CITIZEN OF [place] >60 Normal >=60 [facility] Comment on above: Performed By: #### L IPA, CMP, CRP, NAT #### [facility] [address] [place] [address] Dr. Keturah Fisher Globulin (S) [Mass/Vol] 3.5 g/dL Normal [facility] Comment on above: Performed By: #### L IPA, CMP, CRP, NAT #### [facility] [address] [address] [address] Keturah Fisher Glucose [Mass/Vol] 91 mg/dL Normal 74-106 [facility] Comment on above: Performed By: #### L IPA, CMP, CRP, NAT #### [facility] [address] [address] [address] Keturah Fisher Potassium [Moles/Vol] 3.9 mmol/L Normal 3.5-5.1 [facility] Comment on above: Performed By: #### L IPA, CMP, CRP, NAT #### [facility] [address] [place] [address] Dr. Keturah Fisher Protein [Mass/Vol] 7.7 g/dL Normal 6.4-8.2 [facility] Comment on above: Performed By: #### L IPA, CMP, CRP, NAT #### [facility] [address] [place] [address] Dr. Keturah Fisher Sodium [Moles/Vol] 140 mmol/L Normal 136-145 [facility] Comment on above: Performed By: #### L IPA, CMP, CRP, NAT #### [facility] [address] [place] [address] Dr. Keturah Fisher Urea nitrogen [Mass/Vol] 8.0 mg/dL Normal 7.0-18.0 [facility] Comment on above: Performed By: #### L IPA, CMP, CRP, NAT #### [facility] [address] [place] [address] Dr. Keturah Fisher Urea nitrogen/Creatinine [Mass ratio] 10.4 mg/mg Normal [facility] Comment on above: Performed By: #### L IPA, CMP, CRP, NAT #### [facility] [address] [place] [address] Dr. Keturah Fisher AMYLASEon 10-11-2021 Amylase [Catalytic activity/Vol] 134 U/L Critically high 25-115 [facility] Comment on above: Performed By: #### C BC #### [facility] [address] [place] [address] Dr. Keturah Fisher CBC AUTO DIFFon 10-11-2021 BASO # 0.1 103/ul Normal 0.0-0.1 [facility] Comment on above: Performed By: #### L IPA, CMP, CRP, NAT #### [facility] [address] [place] [address] Dr. Keturah Fisher Basophils/100 WBC (Bld) 1.0 % Normal 0.2-2.0 [facility] Comment on above: Performed By: #### L IPA, CMP, CRP, NAT #### [facility] [address] [place] [address] Dr. Keturah Fisher EO # 0.2 103/ul Normal 0.0-0.7 [facility] Comment on above: Performed By: #### L IPA, CMP, CRP, NAT #### [facility] [address] [place] [address] Dr. Keturah Fisher Eosinophils/100 WBC (Bld) 2.0 % Normal 0.9-7.0 [facility] Comment on above: Performed By: #### L IPA, CMP, CRP, NAT #### [facility] [address] [place] [address] Dr. Keturah Fisher Erythrocyte distribution width (RBC) [Ratio] 13.2 % Normal 11.0-15.0 [facility] Comment on above: Performed By: #### L IPA, CMP, CRP, NAT #### [facility] [address] [place] [address] Dr. Keturah Fisher Hematocrit (Bld) [Volume fraction] 44.7 % Normal 36.0-48.0 [facility] Comment on above: Performed By: #### L IPA, CMP, CRP, NAT #### [facility] [facility] [address] [place] [address] Dr. Keturah Fisher Hemoglobin (Bld) [Mass/Vol] 15.0 g/dL Normal 12.0-16.0 [facility] Comment on above: Performed By: #### L IPA, CMP, CRP, NAT #### [facility] [address] [place] [address] Dr. Keturah Fisher IG # 0.02 10e3/ul Normal 0.00-0.03 [facility] Comment on above: Performed By: #### L IPA, CMP, CRP, NAT #### [facility] [address] [place] [address] Dr. Keturah Fisher IG % 0.2 % Normal 0.0-0.5 [facility] Comment on above: Performed By: #### L IPA, CMP, CRP, NAT #### [facility] [address] [place] [address] Dr. Keturah Fisher LYMPH # 4.1 103/ul Critically high 1.2-3.8 [facility] Comment on above: Performed By: #### L IPA, CMP, CRP, NAT #### [facility] [address] [address] [address] Keturah Fisher Lymphocytes/100 WBC (Bld) 38.9 % Normal 20.5-60.0 [facility] Comment on above: Performed By: #### L IPA, CMP, CRP, NAT #### [facility] [address] [address] [address] Keturah Fisher MANUAL DIFF REQ NO Normal [facility] Comment on above: Performed By: #### L IPA, CMP, CRP, NAT #### [facility] [address] [place] [address] Dr. Keturah Fisher MCH (RBC) [Entitic mass] 32.1 pg Normal 26.7-34.0 [facility] Comment on above: Performed By: #### L IPA, CMP, CRP, NAT #### [facility] [address] [place] [address] Dr. Keturah Fisher MCHC (RBC) [Mass/Vol] 33.6 g/dL Normal 29.9-35.2 [facility] Comment on above: Performed By: #### L IPA, CMP, CRP, NAT #### [facility] [address] [place] [address] Dr. Keturah Fisher MCV (RBC) [Entitic vol] 95.7 fL Normal 81.0-99.0 [facility] Comment on above: Performed By: #### L IPA, CMP, CRP, NAT #### [facility] [address] [place] [address] Dr. Keturah Fisher MONO # 0.9 103/ul Critically high 0.3-0.8 [facility] Comment on above: Performed By: #### L IPA, CMP, CRP, NAT #### [facility] [address] [place] [address] Dr. Keturah Fisher Monocytes/100 WBC (Bld) 8.8 % Normal 1.7-12.0 [facility] Comment on above: Performed By: #### L IPA, CMP, CRP, NAT #### [facility] [address] [place] [address] Dr. Keturah Fisher NEUT # 5.2 103/ul Normal 1.4-6.5 [facility] Comment on above: Performed By: #### L IPA, CMP, CRP, NAT #### [facility] [address] [place] [address] Dr. Keturah Fisher Neutrophils/100 WBC (Bld) 49.1 % Normal 43.0-75.0 [facility] Comment on above: Performed By: #### L IPA, CMP, CRP, NAT #### [facility] [address] [place] [address] Dr. Keturah Fisher Platelet mean volume (Bld) [Entitic vol] 9.8 fL Normal 9.5-13.5 [facility] Comment on above: Performed By: #### L IPA, CMP, CRP, NAT #### [facility] [address] [place] [address] Dr. Keturah Fisher PLT 299 103/ul Normal 150-450 [facility] Comment on above: Performed By: #### L IPA, CMP, CRP, NAT #### [facility] [address] [place] [address] Dr. Keturah Fisher RBC 4.67 106/ul Normal 4.20-5.40 [facility] Comment on above: Performed By: #### L IPA, CMP, CRP, NAT #### [facility] [address] [place] [address] Dr. Keturah Fisher WBC 10.5 103/ul Normal 4.0-11.0 [facility] Comment on above: Performed By: #### L IPA, CMP, CRP, NAT #### [facility] [address] [place] [address] Dr. Keturah Fisher LIPASEon 10-11-2021 Lipase [Catalytic activity/Vol] 240.0 U/L Normal 73.0-393.0 [facility] Comment on above: Performed By: #### C BC #### [facility] [address] [place] [address] Dr. Keturah Fisher PROF 14(COMP METB)on 022 Albumin [Mass/Vol] 4.3 g/dL Normal 3.4-5.0 [facility] Comment on above: Performed By: #### C BC #### [facility] [address] [place] [address] Dr. Keturah Fisher Albumin/Globulin [Mass ratio] 1.3 {ratio} Normal [facility] Comment on above: Performed By: #### C BC #### [facility] [address] [place] [address] Dr. Keturah Fisher ALP [Catalytic activity/Vol] 162 U/L Critically high 46-116 [facility] Comment on above: Performed By: #### C BC #### [facility] [address] [place] [address] Dr. Keturah Fisher ALT [Catalytic activity/Vol] 21 U/L Normal 14-59 [facility] Comment on above: Performed By: #### C BC #### [facility] [address] [place] [address] Dr. Keturha Fisher Anion gap [Moles/Vol] 15.1 mmol/L Normal [facility] Comment on above: Performed By: #### C BC #### [facility] [address] [place] [address] Dr. Keturah Fisher AST [Catalytic activity/Vol] 16 U/L Normal 15-37 [facility] Comment on above: Performed By: #### C BC #### [facility] [address] [place] [address] Dr. Keturah Fisher Bilirubin [Mass/Vol] 0.2 mg/dL Normal 0.2-1.0 [facility] Comment on above: Performed By: #### C BC #### [facility] [address] [place] [address] Dr. Keturah Fisher Calcium [Mass/Vol] 9.6 mg/dL Normal 8.5-10.1 [facility] Comment on above: Performed By: #### C BC #### [facility] [address] [place] [address] Dr. Keturah Fisher Chloride [Moles/Vol] 104 mmol/L Normal 98-107 [facility] Comment on above: Performed By: #### C BC #### [facility] [address] [address] [address] Keturah Fisher CO2 [Moles/Vol] 24.6 mmol/L Normal 21.0-32.0 [facility] Comment on above: Performed By: #### C BC #### [facility] [address] [address] [address] Keturah Fisher Creatinine [Mass/Vol] 0.88 mg/dL Normal 0.55-1.02 [facility] Comment on above: Performed By: #### C BC #### [facility] [address] [place] [address] Dr. Keturah Fisher EGFR-AF CITIZEN OF [place] >60 Normal >=60 [facility] Comment on above: Performed By: #### C BC #### [facility] [address] [place] [address] Dr. Keturah Fisher EGFR-NON AF CITIZEN OF [place] >60 Normal >=60 [facility] Comment on above: Performed By: #### C BC #### [facility] [address] [address] [address] Keturah Fisher Globulin (S) [Mass/Vol] 3.3 g/dL Normal [facility] Comment on above: Performed By: #### C BC #### [facility] [address] [address] [address] Keturah Fisher Glucose [Mass/Vol] 111 mg/dL Critically high 74-106 [facility] Comment on above: Performed By: #### C BC #### [facility] [address] [place] [address] Dr. Keturah Fisher Potassium [Moles/Vol] 3.7 mmol/L Normal 3.5-5.1 [facility] Comment on above: Performed By: #### C BC #### [facility] [address] [address] [address] Keturah Fisher Protein [Mass/Vol] 7.6 g/dL Normal 6.4-8.2 [facility] Comment on above: Performed By: #### C BC #### [facility] [address] [address] [address] Keturah Fisher Sodium [Moles/Vol] 140 mmol/L Normal 136-145 [facility] Comment on above: Performed By: #### C BC #### [facility] [address] [address] [address] Keturah Fisher Urea nitrogen [Mass/Vol] 11.0 mg/dL Normal 7.0-18.0 [facility] Comment on above: Performed By: #### C BC #### [facility] [address] [address] [address] Keturah Fisher Urea nitrogen/Creatinine [Mass ratio] 12.5 mg/mg Normal [facility] Comment on above: Performed By: #### C BC #### [facility] [address] [address] [address] Keturah Fisher PROTIMEon 10-11-2021 INR Coag (PPP) [Relative time] 0.94 {INR} Normal [facility] Comment on above: Performed By: #### P T, PTT ####[facility] [address] [address]Dr. Keturah iFsher INR GUIDELINES SEE BELOW Normal [facility] Comment on above: Result Comment: KARLY RED INR: 2.0 - 3.0 CONDITIONS NOT LISTED BELOW 2.5 - 3.5 FOR PROSTHETIC HEART VALVE REPLACEMENT 2.5 - 3.5 RECURRENT THROMBOSIS Performed By: #### P T, PTT ####[facility] [address] [address]DrGopal Fisher PT Coag (PPP) [Time] 10.2 s Normal 9.0-11.6 [facility] Comment on above: Performed By: #### P T, PTT ####[facility] [address] [address]Dr. Keturah Fisher PTTon 10-11-2021 aPTT Coag (Bld) [Time] 28.0 s Normal 22.3-36.2 [facility] Comment on above: Performed By: #### P T, PTT ####[facility] [address] [place], [place] [address]Nr. Keturah Fisher Amphetamine Screen Ql (U)Ord ered By: Christa Lopez on 10-09-2021 Amphetamines Ql (U) Negative Negative [facility] Barbiturates [Presence] in U rineOrdered By: Christa Lopez on 10-09-2021 Barbiturates Ql (U) Negative Negative [facility] Basophils Auto (Bld) [#/Vol] Ordered By: Christa Lopez on 10-09-2021 Basophils (Bld) [#/Vol] 0.1 10*3/uL 0.0-0.2 [facility] Basophils/100 WBC Auto (Bld) Ordered By: Christa Lopez on 10-09-2021 Basophils/100 WBC (Bld) 0.9 % . [facility] Benzodiazepines [Presence] i n UrineOrdered By: Christa Lopez on 10-09-2021 Benzodiazepines Ql (U) Negative Negative [facility] Bilirubin Auto test strip Ql (U)Ordered By: Christa Lopez on 10-09-2021 Bilirubin Ql (U) Negative Negative [facility] Blood hemoglobin measurement (mass/volume)Ordered By: Christa Lopez on 10-09-2021 Hemoglobin (Bld) [Mass/Vol] 15.7 g/dL 11.8-15.4 [facility] Blood leukocytes automated c ount (number/volume)Ordered By: Christa Lopez on 10-09-2021 WBC (Bld) [#/Vol] 10.1 10*3/uL 4.5-11.0 [facility] Body fluid albumin measureme nt (mass/volume)Ordered By: Christa Lopez on 10-09-2021 Albumin (Body fld) [Mass/Vol] 4.5 g/dL 3.2-5.5 [facility] Cannabinoids [Presence] in U rine by Screen methodOrdered By: Christa Lopez on 10-09-2021 Cannabinoids Screen Ql (U) Negative Negative [facility] Comment on above: These are unconfirme d results and should not be used for legal purposes. Drug Cut-Off Concentration: AMPH 1000 ng/mL BAILEY 200 ng/mL JAKE 200 ng/mL COCM 300 ng/mL OP 300 ng/mL PCP 25 ng/mL THC 20 ng/mL Creatinine and Glomerular fi ltration rate.predicted panel (S/P/Bld)Ordered By: Christa Lopez on 10-09-2021 Creatinine [Mass/Vol] 0.85 mg/dL 0.44-1.03 [facility] Eosinophils Auto (Bld) [#/Vo l]Ordered By: Christa Lopez on 10-09-2021 Eosinophils (Bld) [#/Vol] 0.1 10*3/uL 0.0-0.45 [facility] Eosinophils/100 WBC Auto (Bl d)Ordered By: Christa Lopez on 10-09-2021 Eosinophils/100 WBC (Bld) 1.2 % . [facility] Erythrocyte distribution wid th Auto (RBC) [Ratio]Ordered By: Christa Lopez on 10-09-2021 Erythrocyte distribution width (RBC) [Ratio] 13.5 % 11.9-15.3 [facility] Estimated glomerular filtrat ion rate (GFR) non- AmericanOrdered By: Christa Lopez on 10-09-2021 GFR/1.73 sq M.predicted among non-blacks MDRD (S/P/Bld) [Vol rate/Area] > 60 mL/Min [facility] Globulin Calc (S) [Mass/Vol] Ordered By: Christa Lopez on 10-09-2021 Globulin (S) [Mass/Vol] 2.9 g/dL [facility] Hematocrit Auto (Bld) [Volum e fraction]Ordered By: Christa Lopez on 10-09-2021 Hematocrit (Bld) [Volume fraction] 47.1 % 34.0-46.4 [facility] Ketones Auto test strip (U) [Mass/Vol]Ordered By: Christa Lopez on 10-09-2021 Ketones (U) [Mass/Vol] Negative [facility] - Chemistry and C hemistry - challengeOrdered By: Christa Lopez on 10-09-2021 Lipase [Catalytic activity/Vol] 242.0 U/L 22-51 [facility] Laboratory - Drug toxicology Ordered By: Christa Lopez on 10-09-2021 Opiates Ql (U) Negative Negative [facility] Laboratory - Hematology and Cell countsOrdered By: Christa Lopez on 10-09-2021 Nucleated RBC/100 WBC (Bld) [Ratio] 0.1 % 0-0.5 [facility] Lymphocytes Auto (Bld) [#/Vo l]Ordered By: Christa Lopez on 10-09-2021 Lymphocytes (Bld) [#/Vol] 2.6 10*3/uL 1.00-4.8 [facility] Lymphocytes/100 WBC Auto (Bl d)Ordered By: Christa Lopez on 10-09-2021 Lymphocytes/100 WBC (Bld) 26.0 % . [facility] MCH Auto (RBC) [Entitic mass ]Ordered By: Christa Lopez on 10-09-2021 MCH (RBC) [Entitic mass] 32.4 pg 24.7-34.3 [facility] MCHC Auto (RBC) [Mass/Vol]Or dered By: Christa Lopez on 10-09-2021 MCHC (RBC) [Mass/Vol] 33.3 g/dL 32.0-35.0 [facility] MCV Auto (RBC) [Entitic vol] Ordered By: Christa Lopez on 10-09-2021 MCV (RBC) [Entitic vol] 97.3 fL 80-100 [facility] Monocytes Auto (Bld) [#/Vol] Ordered By: Christa Lopez on 10-09-2021 Monocytes (Bld) [#/Vol] 0.8 10*3/uL 0.0-0.8 [facility] Monocytes/100 WBC Auto (Bld) Ordered By: Christa Lopez on 10-09-2021 Monocytes/100 WBC (Bld) 7.6 % . [facility] Neutrophils Auto (Bld) [#/Vo l]Ordered By: Christa Lopez on 10-09-2021 Neutrophils (Bld) [#/Vol] 6.5 10*3/uL 1.8-7.7 [facility] Neutrophils/100 WBC Auto (Bl d)Ordered By: Christa Lopez on 10-09-2021 Neutrophils/100 WBC (Bld) 64.3 % . [facility] No Panel InformationOrdered By: Christa Lopez on 10-09-2021 Estimated GFR () > 60 mL/Min [facility] Comment on above: GFR estimated refere nce range: According to KDOQI guidelines, <60 ml/min/1.73m2 is sufficient to diagnose a patient with chronic kidney disease. Pharmacy Creatinine Clearance (Chem 61.23 [facility] Phencyclidine Screen Ql (U)O rdered By: Christa Lopez on 10-09-2021 Phencyclidine Ql (U) Negative Negative [facility] Platelet mean volume Auto (B ld) [Entitic vol]Ordered By: Christa Lopez on 10-09-2021 Platelet mean volume (Bld) [Entitic vol] 8.5 fL 6.3-10.7 [facility] Platelets Auto (Bld) [#/Vol] Ordered By: Christa Lopez on 10-09-2021 Platelets (Bld) [#/Vol] 284 10*3/uL 150-450 [facility] Protein Auto test strip (U) [Mass/Vol]Ordered By: Christa Lopez on 10-09-2021 Protein (U) [Mass/Vol] Negative Negative [facility] Protein [Mass/volume] in Ser um or PlasmaOrdered By: Christa Lopez on 10-09-2021 Protein [Mass/Vol] 7.4 g/dL 6.1-7.9 [facility] RBC Auto (Bld) [#/Vol]Ordere d By: Christa Lopez on 10-09-2021 RBC (Bld) [#/Vol] 4.84 10*6/uL 3.60-5.00 [facility] Serum or plasma alanine hughes otransferase measurement without P-5'-P (enzymatic activiOrdered By: Christa Lopez on 10-09-2021 ALT No additional P-5'-P [Catalytic activity/Vol] 19 U/L 10-60 [facility] Serum or plasma albumin/glob ulin mass ratioOrdered By: Christa Lopez on 10-09-2021 Albumin/Globulin [Mass ratio] 1.6 {ratio} [facility] Serum or plasma alkaline jaqueline sphatase measurement (enzymatic activity/volume)Ordered By: Christa Lopez on 10-09-2021 ALP [Catalytic activity/Vol] 138 U/L 32-92 [facility] Serum or plasma aspartate am inotransferase measurement (enzymatic activity/volume)Ordered By: Christa Lopez on 10-09-2021 AST [Catalytic activity/Vol] 31 U/L 10-42 [facility] Serum or plasma calcium priscilla urement (mass/volume)Ordered By: Christa Lopez on 10-09-2021 Calcium [Mass/Vol] 10.3 mg/dL 8.2-10.2 [facility] Serum or plasma chloride daron surement (moles/volume)Ordered By: Christa Lopez on 10-09-2021 Chloride [Moles/Vol] 100 mmol/L 95-114 [facility] Serum or plasma glucose priscilla urement (mass/volume)Ordered By: Christa Lopez on 10-09-2021 Glucose [Mass/Vol] 75 mg/dL 70-100 [facility] Comment on above: ADA recommended refe rence range Random Glucose Reference Range is dependent on time and content of last meal. Glucose of more than 200 mg/dL in a nonstressed, ambulatory subject supports the diagnosis of Diabetes Mellitus. Serum or plasma potassium me asurement (moles/volume)Ordered By: Christa Lopez on 10-09-2021 Potassium [Moles/Vol] 3.9 mmol/L 3.5-5.1 [facility] Serum or plasma sodium measu rement (moles/volume)Ordered By: Christa Lopez on 10-09-2021 Sodium [Moles/Vol] 136 mmol/L 136-146 [facility] Serum or plasma total biliru bin measurement (mass/volume)Ordered By: Christa Lopez on 10-09-2021 Bilirubin [Mass/Vol] 0.4 mg/dL 0.3-1.2 [facility] Serum or plasma total carbon dioxide measurement (moles/volume)Ordered By: Christa Lopez on 10-09-2021 CO2 [Moles/Vol] 24.1 mmol/L 22.0-30.0 [facility] Serum or plasma urea nitroge n measurement (mass/volume)Ordered By: Christa Lopez on 10-09-2021 Urea nitrogen [Mass/Vol] 12 mg/dL 9- [facility] Troponin I.cardiac [Mass/vol ume] in Serum or Plasma by High sensitivity methodOrdered By: Christa Lopez on 10-09-2021 Troponin I.cardiac High sensitivity method [Mass/Vol] 3 pg/mL 0-15 [facility] Urine appearanceOrdered By: Christa Lopez on 10-09-2021 Appearance (U) Clear Clear [facility] Urine cocaine detectionOrder ed By: Christa Lopez on 10-09-2021 Cocaine Ql (U) Negative Negative [facility] Urine colorOrdered By: Christa Lopez on 10-09-2021 Color (U) Yellow Yellow [facility] Urine glucose measurement by automated test strip (mass/volume)Ordered By: Christa Lopez on 10-09-2021 Glucose Auto test strip (U) [Mass/Vol] Normal mg/dL Normal [facility] Urine hemoglobin detection b y automated test stripOrdered By: Christa Lopez on 10-09-2021 Hemoglobin Auto test strip Ql (U) Negative Negative [facility] Urine leukocyte esterase det ection by automated test stripOrdered By: Christa Lopez on 10-09-2021 Leukocyte esterase Auto test strip Ql (U) Negative Negative [facility] Urine nitrite detection by a utomated test stripOrdered By: Christa Lopez on 10-09-2021 Nitrite Auto test strip Ql (U) Negative Negative [facility] Urobilinogen Auto test strip (U) [Mass/Vol]Ordered By: Christa Lopez on 10-09-2021 Urobilinogen (U) [Mass/Vol] Normal mg/dL Normal [facility] pH Auto test strip (U)Ordere d By: Christa Lopez on 10-09-2021 pH (U) 1.025 [pH] 1.001-1.030 [facility] pH (U) 5.5 [pH] 5.0-9.0 [facility] Albumin [Mass/volume] in Ser um or PlasmaOrdered By: Reinaldo Amor on 10-04-2021 Albumin [Mass/Vol] 3.6 g/dL 3.2-5.5 [facility] Basophils Auto (Bld) [#/Vol] Ordered By: Reinaldo Amor on 10-04-2021 Basophils (Bld) [#/Vol] 0.1 10*3/uL 0.0-0.2 [facility] Basophils/100 WBC Auto (Bld) Ordered By: Reinaldo Amor on 10-04-2021 Basophils/100 WBC (Bld) 0.8 % . [facility] Bilirubin Auto test strip Ql (U)Ordered By: Reinaldo Amor on 10-04-2021 Bilirubin Ql (U) Negative Negative [facility] Blood hemoglobin measurement (mass/volume)Ordered By: Reinaldo Amor on 10-04-2021 Hemoglobin (Bld) [Mass/Vol] 13.9 g/dL 11.8-15.4 [facility] Blood leukocytes automated c ount (number/volume)Ordered By: Reinaldo Amor on 10-04-2021 WBC (Bld) [#/Vol] 10.4 10*3/uL 4.5-11.0 [facility] Creatinine and Glomerular fi ltration rate.predicted panel (S/P/Bld)Ordered By: Reinaldo Amor on 10-04-2021 Creatinine [Mass/Vol] 0.73 mg/dL 0.44-1.03 [facility] Direct bilirubin measurement Ordered By: Reinaldo Amor on 10-04-2021 Bilirubin.direct [Mass/Vol] mg/dL 0.0-0.4 [facility] Eosinophils Auto (Bld) [#/Vo l]Ordered By: Reinaldo Amor on 10-04-2021 Eosinophils (Bld) [#/Vol] 0.1 10*3/uL 0.0-0.45 [facility] Eosinophils/100 WBC Auto (Bl d)Ordered By: Reinaldo Amor on 10-04-2021 Eosinophils/100 WBC (Bld) 0.5 % . [facility] Erythrocyte distribution wid th Auto (RBC) [Ratio]Ordered By: Reinaldo Amor on 10-04-2021 Erythrocyte distribution width (RBC) [Ratio] 13.7 % 11.9-15.3 [facility] Estimated glomerular filtrat ion rate (GFR) non- AmericanOrdered By: Reinaldo Amor on 10-04-2021 GFR/1.73 sq M.predicted among non-blacks MDRD (S/P/Bld) [Vol rate/Area] > 60 mL/Min [facility] Globulin Calc (S) [Mass/Vol] Ordered By: Reinaldo Amor on 10-04-2021 Globulin (S) [Mass/Vol] 2.6 g/dL [facility] Hematocrit Auto (Bld) [Volum e fraction]Ordered By: Reinaldo Amor on 10-04-2021 Hematocrit (Bld) [Volume fraction] 41.1 % 34.0-46.4 [facility] Ketones Auto test strip (U) [Mass/Vol]Ordered By: Reinaldo Amor on 10-04-2021 Ketones (U) [Mass/Vol] Negative Negative [facility] - Chemistry and C hemistry - challengeOrdered By: Reinaldo Amor on 10-04-2021 Lipase [Catalytic activity/Vol] 107.0 U/L 22-51 [facility] - Hematology and Cell countsOrdered By: Reinaldo Amor on 10-04-2021 Nucleated RBC/100 WBC (Bld) [Ratio] 0.1 % 0-0.5 [facility] Lymphocytes Auto (Bld) [#/Vo l]Ordered By: Reinaldo Amor on 10-04-2021 Lymphocytes (Bld) [#/Vol] 2.5 10*3/uL 1.00-4.8 [facility] Lymphocytes/100 WBC Auto (Bl d)Ordered By: Reinaldo Amor on 10-04-2021 Lymphocytes/100 WBC (Bld) 24.1 % . [facility] MCH Auto (RBC) [Entitic mass ]Ordered By: Reinaldo Amor on 10-04-2021 MCH (RBC) [Entitic mass] 32.6 pg 24.7-34.3 [facility] MCHC Auto (RBC) [Mass/Vol]Or dered By: Reinaldo Amor on 10-04-2021 MCHC (RBC) [Mass/Vol] 33.8 g/dL 32.0-35.0 [facility] MCV Auto (RBC) [Entitic vol] Ordered By: Reinaldo Amor on 10-04-2021 MCV (RBC) [Entitic vol] 96.5 fL 80-100 [facility] Monocytes Auto (Bld) [#/Vol] Ordered By: Reinaldo Amor on 10-04-2021 Monocytes (Bld) [#/Vol] 0.9 10*3/uL 0.0-0.8 [facility] Monocytes/100 WBC Auto (Bld) Ordered By: Reinaldo Amor on 10-04-2021 Monocytes/100 WBC (Bld) 8.4 % . [facility] Neutrophils Auto (Bld) [#/Vo l]Ordered By: Reinaldo Amor on 10-04-2021 Neutrophils (Bld) [#/Vol] 6.9 10*3/uL 1.8-7.7 [facility] Neutrophils/100 WBC Auto (Bl d)Ordered By: Reinaldo Amor on 10-04-2021 Neutrophils/100 WBC (Bld) 66.2 % . [facility] No Panel InformationOrdered By: Reinaldo Amor on 10-04-2021 Estimated GFR () > 60 mL/Min [facility] Comment on above: GFR estimated refere nce range: According to KDOQI guidelines, <60 ml/min/1.73m2 is sufficient to diagnose a patient with chronic kidney disease. Pharmacy Creatinine Clearance (Chem 71.30 [facility] Platelet mean volume Auto (B ld) [Entitic vol]Ordered By: Reinaldo Amor on 10-04-2021 Platelet mean volume (Bld) [Entitic vol] 8.0 fL 6.3-10.7 [facility] Platelets Auto (Bld) [#/Vol] Ordered By: Reinaldo Amor on 10-04-2021 Platelets (Bld) [#/Vol] 268 10*3/uL 150-450 [facility] Protein Auto test strip (U) [Mass/Vol]Ordered By: Reinaldo Amor on 10-04-2021 Protein (U) [Mass/Vol] Negative Negative [facility] Protein [Mass/volume] in Ser um or PlasmaOrdered By: Reinaldo Amor on 10-04-2021 Protein [Mass/Vol] 6.2 g/dL 6.1-7.9 [facility] RBC Auto (Bld) [#/Vol]Ordere d By: Reinaldo Amor on 10-04-2021 RBC (Bld) [#/Vol] 4.26 10*6/uL 3.60-5.00 [facility] Serum or plasma alanine hughes otransferase measurement without P-5'-P (enzymatic activiOrdered By: eRinaldo Amor on 10-04-2021 ALT No additional P-5'-P [Catalytic activity/Vol] 15 U/L 10-60 [facility] Serum or plasma albumin/glob ulin mass ratioOrdered By: Reinaldo Amor on 10-04-2021 Albumin/Globulin [Mass ratio] 1.4 {ratio} [facility] Serum or plasma alkaline jaqueline sphatase measurement (enzymatic activity/volume)Ordered By: Reinaldo Amor on 10-04-2021 ALP [Catalytic activity/Vol] 103 U/L 32-92 [facility] Serum or plasma amylase priscilla urement (enzymatic activity/volume)Ordered By: Reinaldo Amor on 10-04-2021 Amylase [Catalytic activity/Vol] 134 U/L 28-100 [facility] Serum or plasma aspartate am inotransferase measurement (enzymatic activity/volume)Ordered By: Reinaldo Amor on 10-04-2021 AST [Catalytic activity/Vol] 20 U/L 10-42 [facility] Serum or plasma calcium priscilla urement (mass/volume)Ordered By: Reinaldo Amor on 10-04-2021 Calcium [Mass/Vol] 9.6 mg/dL 8.2-10.2 [facility] Serum or plasma chloride daron surement (moles/volume)Ordered By: Reinaldo Amor on 10-04-2021 Chloride [Moles/Vol] 103 mmol/L 95-114 [facility] Serum or plasma ethanol priscilla urement (mass/volume)Ordered By: Reinaldo Amor on 10-04-2021 Ethanol [Mass/Vol] mg/dL [facility] Ethanol [Mass/Vol] TNP [facility] Comment on above: Test not performed Serum or plasma glucose priscilla urement (mass/volume)Ordered By: Reinaldo Amor on 10-04-2021 Glucose [Mass/Vol] 120 mg/dL 70-100 [facility] Comment on above: ADA recommended refe rence range Random Glucose Reference Range is dependent on time and content of last meal. Glucose of more than 200 mg/dL in a nonstressed, ambulatory subject supports the diagnosis of Diabetes Mellitus. Serum or plasma non-glucuron idated bilirubin measurement (mass/volume)Ordered By: Reinaldo Amor on 10-04-2021 Bilirubin.indirect [Mass/Vol] TNP [facility] Comment on above: Test not performed Serum or plasma potassium me asurement (moles/volume)Ordered By: Reinaldo Amor on 10-04-2021 Potassium [Moles/Vol] 3.7 mmol/L 3.5-5.1 [facility] Serum or plasma sodium measu rement (moles/volume)Ordered By: Reinaldo Amor on 10-04-2021 Sodium [Moles/Vol] 137 mmol/L 136-146 [facility] Serum or plasma total biliru bin measurement (mass/volume)Ordered By: Reinaldo Amor on 10-04-2021 Bilirubin [Mass/Vol] 0.5 mg/dL 0.3-1.2 [facility] Serum or plasma total carbon dioxide measurement (moles/volume)Ordered By: Reinaldo Amor on 10-04-2021 CO2 [Moles/Vol] 24.9 mmol/L 22.0-30.0 [facility] Serum or plasma urea nitroge n measurement (mass/volume)Ordered By: Reinaldo Amor on 10-04-2021 Urea nitrogen [Mass/Vol] 7 mg/dL 9-23 [facility] Urine appearanceOrdered By: Reinaldo Amor on 10-04-2021 Appearance (U) Clear Clear [facility] Urine colorOrdered By: Ml Amor on 10-04-2021 Color (U) Yellow Yellow [facility] Urine glucose measurement by automated test strip (mass/volume)Ordered By: Reinaldo Amor on 10-04-2021 Glucose Auto test strip (U) [Mass/Vol] Normal mg/dL Normal [facility] Urine hemoglobin detection b y automated test stripOrdered By: Reinaldo Amor on 10-04-2021 Hemoglobin Auto test strip Ql (U) Negative Negative [facility] Urine leukocyte esterase det ection by automated test stripOrdered By: Reinaldo Amor on 10-04-2021 Leukocyte esterase Auto test strip Ql (U) Negative Negative [facility] Urine nitrite detection by a utomated test stripOrdered By: Reinaldo Amor on 10-04-2021 Nitrite Auto test strip Ql (U) Negative Negative [facility] Urobilinogen Auto test strip (U) [Mass/Vol]Ordered By: Reinaldo Amor on 10-04-2021 Urobilinogen (U) [Mass/Vol] Normal mg/dL Normal [facility] pH Auto test strip (U)Ordere d By: Reinaldo Amor on 10-04-2021 pH (U) 1.030 [pH] 1.001-1.030 [facility] pH (U) 5.5 [pH] 5.0-9.0 [facility] Basophils Auto (Bld) [#/Vol] Ordered By: Reinaldo Amor on 09-25-2021 Basophils (Bld) [#/Vol] 0.1 10*3/uL 0.0-0.2 [facility] Basophils/100 WBC Auto (Bld) Ordered By: Reinaldo Amor on 09-25-2021 Basophils/100 WBC (Bld) 1.2 % . [facility] Blood hemoglobin measurement (mass/volume)Ordered By: Reinaldo Amor on 09-25-2021 Hemoglobin (Bld) [Mass/Vol] 14.2 g/dL 11.8-15.4 [facility] Blood leukocytes automated c ount (number/volume)Ordered By: Reinaldo Amor on 09-25-2021 WBC (Bld) [#/Vol] 9.3 10*3/uL 4.5-11.0 [facility] Body fluid albumin measureme nt (mass/volume)Ordered By: PROVIDER TEMP on 09-25-2021 Albumin (Body fld) [Mass/Vol] 4.3 g/dL 3.2-5.5 [facility] Creatinine and Glomerular fi ltration rate.predicted panel (S/P/Bld)Ordered By: PROVIDER TEMP on 09-25-2021 Creatinine [Mass/Vol] 0.82 mg/dL 0.44-1.03 [facility] Eosinophils Auto (Bld) [#/Vo l]Ordered By: Reinaldo Amor on 09-25-2021 Eosinophils (Bld) [#/Vol] 0.2 10*3/uL 0.0-0.45 [facility] Eosinophils/100 WBC Auto (Bl d)Ordered By: Reinaldo Amor on 09-25-2021 Eosinophils/100 WBC (Bld) 1.9 % . [facility] Erythrocyte distribution wid th Auto (RBC) [Ratio]Ordered By: Reinaldo Amor on 09-25-2021 Erythrocyte distribution width (RBC) [Ratio] 13.7 % 11.9-15.3 [facility] Estimated glomerular filtrat ion rate (GFR) non- AmericanOrdered By: PROVIDER TEMP on 09-25-2021 GFR/1.73 sq M.predicted among non-blacks MDRD (S/P/Bld) [Vol rate/Area] > 60 mL/Min [facility] Globulin Calc (S) [Mass/Vol] Ordered By: PROVIDER TEMMaty on 09-25-2021 Globulin (S) [Mass/Vol] 3.3 g/dL [facility] Hematocrit Auto (Bld) [Volum e fraction]Ordered By: Reinaldo Amor on 09-25-2021 Hematocrit (Bld) [Volume fraction] 42.1 % 34.0-46.4 [facility] Laboratory - Chemistry and C hemistry - challengeOrdered By: Reinaldo Amor on 09-25-2021 Lipase [Catalytic activity/Vol] 64.0 U/L 22-51 [facility] - Hematology and Cell countsOrdered By: Reinaldo Amor on 09-25-2021 Nucleated RBC/100 WBC (Bld) [Ratio] 0.1 % 0-0.5 [facility] Lymphocytes Auto (Bld) [#/Vo l]Ordered By: Reinaldo Amor on 09-25-2021 Lymphocytes (Bld) [#/Vol] 2.6 10*3/uL 1.00-4.8 [facility] Lymphocytes/100 WBC Auto (Bl d)Ordered By: Reinaldo Amor on 09-25-2021 Lymphocytes/100 WBC (Bld) 28.1 % . [facility] MCH Auto (RBC) [Entitic mass ]Ordered By: Reinaldo Amor on 09-25-2021 MCH (RBC) [Entitic mass] 32.5 pg 24.7-34.3 [facility] MCHC Auto (RBC) [Mass/Vol]Or dered By: Reinaldo Amor on 09-25-2021 MCHC (RBC) [Mass/Vol] 33.7 g/dL 32.0-35.0 [facility] MCV Auto (RBC) [Entitic vol] Ordered By: Reinaldo Amor on 09-25-2021 MCV (RBC) [Entitic vol] 96.7 fL 80-100 [facility] Monocytes Auto (Bld) [#/Vol] Ordered By: Reinaldo Amor on 09-25-2021 Monocytes (Bld) [#/Vol] 0.8 10*3/uL 0.0-0.8 [facility] Monocytes/100 WBC Auto (Bld) Ordered By: Reinaldo Amor on 09-25-2021 Monocytes/100 WBC (Bld) 8.2 % . [facility] Neutrophils Auto (Bld) [#/Vo l]Ordered By: Reinaldo Amor on 09-25-2021 Neutrophils (Bld) [#/Vol] 5.6 10*3/uL 1.8-7.7 [facility] Neutrophils/100 WBC Auto (Bl d)Ordered By: Reinaldo Amor on 09-25-2021 Neutrophils/100 WBC (Bld) 60.6 % . [facility] No Panel InformationOrdered By: PROVIDER TEMP on 09-25-2021 Estimated GFR () > 60 mL/Min [facility] Comment on above: GFR estimated refere nce range: According to KDOQI guidelines, <60 ml/min/1.73m2 is sufficient to diagnose a patient with chronic kidney disease. Pharmacy Creatinine Clearance (Chem 63.47 [facility] Platelet mean volume Auto (B ld) [Entitic vol]Ordered By: Reinaldo Amor on 09-25-2021 Platelet mean volume (Bld) [Entitic vol] 8.6 fL 6.3-10.7 [facility] Platelets Auto (Bld) [#/Vol] Ordered By: Reinaldo Amor on 09-25-2021 Platelets (Bld) [#/Vol] 221 10*3/uL 150-450 [facility] Protein [Mass/volume] in Ser um or PlasmaOrdered By: PROVIDER TEMP on 09-25-2021 Protein [Mass/Vol] 7.6 g/dL 6.1-7.9 [facility] RBC Auto (Bld) [#/Vol]Ordere d By: Reinaldo Amor on 09-25-2021 RBC (Bld) [#/Vol] 4.35 10*6/uL 3.60-5.00 [facility] Serum or plasma alanine hughes otransferase measurement without P-5'-P (enzymatic activiOrdered By: PROVIDER TEMP on 09-25-2021 ALT No additional P-5'-P [Catalytic activity/Vol] 14 U/L 10-60 [facility] Serum or plasma albumin/glob ulin mass ratioOrdered By: PROVIDER TEMP on 09-25-2021 Albumin/Globulin [Mass ratio] 1.3 {ratio} [facility] Serum or plasma alkaline jaqueline sphatase measurement (enzymatic activity/volume)Ordered By: PROVIDER TEMP on 09-25-2021 ALP [Catalytic activity/Vol] 127 U/L 32-92 [facility] Serum or plasma amylase priscilla urement (enzymatic activity/volume)Ordered By: Reinaldo Amor on 09-25-2021 Amylase [Catalytic activity/Vol] 171 U/L 28-100 [facility] Serum or plasma aspartate am inotransferase measurement (enzymatic activity/volume)Ordered By: PROVIDER TEMP on 09-25-2021 AST [Catalytic activity/Vol] 21 U/L 10-42 [facility] Serum or plasma calcium priscilla urement (mass/volume)Ordered By: PROVIDER TEMP on 09-25-2021 Calcium [Mass/Vol] 10.1 mg/dL 8.2-10.2 [facility] Serum or plasma chloride daron surement (moles/volume)Ordered By: PROVIDER TEMP on 09-25-2021 Chloride [Moles/Vol] 103 mmol/L 95-114 [facility] Serum or plasma glucose priscilla urement (mass/volume)Ordered By: PROVIDER TEMP on 09-25-2021 Glucose [Mass/Vol] 93 mg/dL 70-100 [facility] Comment on above: ADA recommended refe rence range Random Glucose Reference Range is dependent on time and content of last meal. Glucose of more than 200 mg/dL in a nonstressed, ambulatory subject supports the diagnosis of Diabetes Mellitus. Serum or plasma potassium me asurement (moles/volume)Ordered By: PROVIDER TEMP on 09-25-2021 Potassium [Moles/Vol] 3.9 mmol/L 3.5-5.1 [facility] Serum or plasma sodium measu rement (moles/volume)Ordered By: PROVIDER TEMP on 09-25-2021 Sodium [Moles/Vol] 137 mmol/L 136-146 [facility] Serum or plasma total biliru bin measurement (mass/volume)Ordered By: PROVIDER TEMP on 09-25-2021 Bilirubin [Mass/Vol] 0.3 mg/dL 0.3-1.2 [facility] Serum or plasma total carbon dioxide measurement (moles/volume)Ordered By: PROVIDER TEMP on 09-25-2021 CO2 [Moles/Vol] 26.3 mmol/L 22.0-30.0 [facility] Serum or plasma urea nitroge n measurement (mass/volume)Ordered By: PROVIDER TEMP on 09-25-2021 Urea nitrogen [Mass/Vol] 8 mg/dL 9-23 [facility] AMYLASEon 09-17-2021 Amylase [Catalytic activity/Vol] 142 U/L Critically high 25-115 [facility] Comment on above: Performed By: #### A MY, CMP, LIPA ####[facility] [address] [place] [id number]. Keturah Fisher CBC AUTO DIFFon 09-17-2021 BASO # 0.1 103/ul Normal 0.0-0.1 [facility] Comment on above: Performed By: #### C BC ####[facility] [address] [id number] Fisher Basophils/100 WBC (Bld) 0.7 % Normal 0.2-2.0 [facility] Comment on above: Performed By: #### C BC ####[facility] [address] [id number]. Keturah Fisher EO # 0.1 103/ul Normal 0.0-0.7 [facility] Comment on above: Performed By: #### C BC ####[facility] [address] [address]Dr. Keturah Fisher Eosinophils/100 WBC (Bld) 1.3 % Normal 0.9-7.0 [facility] Comment on above: Performed By: #### C BC ####[facility] [address] [place], [place] [address]Dr. Keturah Fisher Erythrocyte distribution width (RBC) [Ratio] 13.2 % Normal 11.0-15.0 [facility] Comment on above: Performed By: #### C BC ####[facility] [address] [place], [place] [address]Dr. Keturah Fisher Hematocrit (Bld) [Volume fraction] 43.7 % Normal 36.0-48.0 [facility] Comment on above: Performed By: #### C BC ####[facility] [address] [place], [place] [address]Dr. Keturah Fisher Hemoglobin (Bld) [Mass/Vol] 14.7 g/dL Normal 12.0-16.0 [facility] Comment on above: Performed By: #### C BC ####[facility] [address] [place], [place] [address]Dr. Keturah Fisher IG # 0.01 10e3/ul Normal 0.00-0.03 [facility] Comment on above: Performed By: #### C BC ####[facility] [address] [place], [place] [address]Dr. Keturah Fisher IG % 0.1 % Normal 0.0-0.5 [facility] Comment on above: Performed By: #### C BC ####[facility] [address] [place], [place] [address]DrGopal Keturah Phillip LYMPH # 2.7 103/ul Normal 1.2-3.8 [facility] Comment on above: Performed By: #### C BC ####[facility] [address] [place], [place] [address]Dr. Keturah Fisher Lymphocytes/100 WBC (Bld) 30.1 % Normal 20.5-60.0 [facility] Comment on above: Performed By: #### C BC ####[facility] [address] [place] [address]Dr. Keturah Fisher MANUAL DIFF REQ NO Normal [facility] Comment on above: Performed By: #### C BC ####[facility] [address] [address]Dr. Keturah Fisher MCH (RBC) [Entitic mass] 32.4 pg Normal 26.7-34.0 [facility] Comment on above: Performed By: #### C BC ####[facility] [address] [place], [place] [address]Dr. Keturah Fisher MCHC (RBC) [Mass/Vol] 33.6 g/dL Normal 29.9-35.2 [facility] Comment on above: Performed By: #### C BC ####[facility] [address] [place], [place] [address]Dr. Keturah Fisher MCV (RBC) [Entitic vol] 96.3 fL Normal 81.0-99.0 [facility] Comment on above: Performed By: #### C BC ####[facility] [address] [place], [place] [address]Dr. Keturah Fisher MONO # 0.8 103/ul Normal 0.3-0.8 [facility] Comment on above: Performed By: #### C BC ####[facility] [address] [place], [place] [address]Dr. Keturah Fisher Monocytes/100 WBC (Bld) 8.7 % Normal 1.7-12.0 [facility] Comment on above: Performed By: #### C BC ####[facility] [address] [place], [place] [address]Dr. Keturah Fisher NEUT # 5.4 103/ul Normal 1.4-6.5 [facility] Comment on above: Performed By: #### C BC ####[facility] [address] [place], [place] [address]Dr. Keturah Fisher Neutrophils/100 WBC (Bld) 59.1 % Normal 43.0-75.0 [facility] Comment on above: Performed By: #### C BC ####[facility] [address] [address]DrGopal Fisher Platelet mean volume (Bld) [Entitic vol] 9.6 fL Normal 9.5-13.5 [facility] Comment on above: Performed By: #### C BC ####[facility] [address] [address]Dr. Keturah Fisher PLT 272 103/ul Normal 150-450 [facility] Comment on above: Performed By: #### C BC ####[facility] [address] [address]Dr. Keturah Fisher RBC 4.54 106/ul Normal 4.20-5.40 [facility] Comment on above: Performed By: #### C BC ####[facility] [address] [place] [address]Dr. Keturah Fisher WBC 9.1 103/ul Normal 4.0-11.0 [facility] Comment on above: Performed By: #### C BC ####[facility] [address] [place] [address]DrGopal Fisher ETHANOL (BLD ALC)on 09-18-19 22 ALC NOTE NOTE: 80 mg/dl is th e legal limit for a blood alcohol level Normal [facility] Comment on above: Performed By: #### L IPA, CMP, CRP, NAT #### [facility] [address] [address] [address] Keturah Fisher Ethanol [Mass/Vol] mg/dL Normal [facility] Comment on above: Performed By: #### L IPA, CMP, CRP, NAT #### [facility] [address] [address] [address] Keturah Fisher LIPASEon 09-17-2021 Lipase [Catalytic activity/Vol] 524.0 U/L Critically high 73.0-393.0 [facility] Comment on above: Performed By: #### C BC #### [facility] [address] [place] [address] Dr. Keturah Fisher PROF 14(COMP METB)on 022 Albumin [Mass/Vol] 3.9 g/dL Normal 3.4-5.0 [facility] Comment on above: Performed By: #### C BC #### [facility] [address] [place] [address] Dr. Keturah Fisher Albumin/Globulin [Mass ratio] 1.1 {ratio} Normal [facility] Comment on above: Performed By: #### C BC #### [facility] [address] [place] [address] Dr. Keturah Fisher ALP [Catalytic activity/Vol] 136 U/L Critically high 46-116 [facility] Comment on above: Performed By: #### C BC #### [facility] [address] [place] [address] Dr. Keturah Fisher ALT [Catalytic activity/Vol] 21 U/L Normal 14-59 [facility] Comment on above: Performed By: #### C BC #### [facility] [address] [place] [address] Dr. Keturah Fisher Anion gap [Moles/Vol] 12.7 mmol/L Normal [facility] Comment on above: Performed By: #### C BC #### [facility] [address] [place] [address] Dr. Keturah Fisher AST [Catalytic activity/Vol] 16 U/L Normal 15-37 [facility] Comment on above: Performed By: #### C BC #### [facility] [address] [place] [address] Dr. Keturah Fisher Bilirubin [Mass/Vol] 0.2 mg/dL Normal 0.2-1.0 [facility] Comment on above: Performed By: #### C BC #### [facility] [address] [place] [address] Dr. Keturah Fisher Calcium [Mass/Vol] 9.9 mg/dL Normal 8.5-10.1 [facility] Comment on above: Performed By: #### C BC #### [facility] [address] [address] [address] Keturah Fisher Chloride [Moles/Vol] 106 mmol/L Normal 98-107 [facility] Comment on above: Performed By: #### C BC #### [facility] [address] [place] [address] Dr. Keturah Fisher CO2 [Moles/Vol] 25.9 mmol/L Normal 21.0-32.0 [facility] Comment on above: Performed By: #### C BC #### [facility] [address] [place] [address] Dr. Keturah Fisher Creatinine [Mass/Vol] 0.96 mg/dL Normal 0.55-1.02 [facility] Comment on above: Performed By: #### C BC #### [facility] [address] [place] [address] Dr. Keturah Fisher EGFR-AF CITIZEN [place] >60 Normal >=60 [facility] Comment on above: Performed By: #### C BC #### [facility] [address] [place] [address] Dr. Keturah Fisher EGFR-NON AF CITIZEN OF [place] >60 Normal >=60 [facility] Comment on above: Performed By: #### C BC #### [facility] [address] [place] [address] Dr. Keturah Fisher Globulin (S) [Mass/Vol] 3.5 g/dL Normal [facility] Comment on above: Performed By: #### C BC #### [facility] [address] [place] [address] Dr. Keturah Fisher Glucose [Mass/Vol] 113 mg/dL Critically high 74-106 [facility] Comment on above: Performed By: #### C BC #### [facility] [address] [place] [address] Dr. Keturah Fisher Potassium [Moles/Vol] 3.6 mmol/L Normal 3.5-5.1 [facility] Comment on above: Performed By: #### C BC #### [facility] [address] [place] [address] Dr. Keturah Fisher Protein [Mass/Vol] 7.4 g/dL Normal 6.4-8.2 [facility] Comment on above: Performed By: #### C BC #### [facility] [address] [place] [address] Dr. Keturah Fisher Sodium [Moles/Vol] 141 mmol/L Normal 136-145 [facility] Comment on above: Performed By: #### C BC #### [facility] [address] [place] [address] Dr. Keturah Fisher Urea nitrogen [Mass/Vol] 8.0 mg/dL Normal 7.0-18.0 [facility] Comment on above: Performed By: #### C BC #### [facility] [address] [place] [address] Dr. Keturah Fisher Urea nitrogen/Creatinine [Mass ratio] 8.3 mg/mg Normal [facility] Comment on above: Performed By: #### C BC #### [facility] [address] [place] [address] Dr. Keturah Fisher AMYLASEon 08-26-2021 Amylase [Catalytic activity/Vol] 94 U/L Normal 25-115 [facility] Comment on above: Performed By: #### A MY, CMP, LIPA ####[facility] [address] [place], [place] [address]Dr. Keturah Fisher CBC AUTO DIFFon 08-26-2021 BASO # 0.1 103/ul Normal 0.0-0.1 [facility] Comment on above: Performed By: #### L IPA, CMP, CRP, NAT #### [facility] [address] [place] [address] Dr. Keturah Fisher Basophils/100 WBC (Bld) 0.7 % Normal 0.2-2.0 [facility] Comment on above: Performed By: #### L IPA, CMP, CRP, NAT #### [facility] [address] [place] [address] Dr. Keturah Fisher EO # 0.2 103/ul Normal 0.0-0.7 [facility] Comment on above: Performed By: #### L IPA, CMP, CRP, NAT #### [facility] [address] [place] [address] Dr. Keturah Fisher Eosinophils/100 WBC (Bld) 2.5 % Normal 0.9-7.0 [facility] Comment on above: Performed By: #### L IPA, CMP, CRP, NAT #### [facility] [address] [place] [address] Dr. Keturah Fisher Erythrocyte distribution width (RBC) [Ratio] 13.1 % Normal 11.0-15.0 [facility] Comment on above: Performed By: #### L IPA, CMP, CRP, NAT #### [facility] [address] [place] [address] Dr. Keturah Fisher Hematocrit (Bld) [Volume fraction] 42.4 % Normal 36.0-48.0 [facility] Comment on above: Performed By: #### L IPA, CMP, CRP, NAT #### [facility] [address] [place] [address] Dr. Keturah Fisher Hemoglobin (Bld) [Mass/Vol] 14.1 g/dL Normal 12.0-16.0 [facility] Comment on above: Performed By: #### L IPA, CMP, CRP, NAT #### [facility] [address] [place] [address] Dr. Keturah Fisher IG # 0.03 10e3/ul Normal 0.00-0.03 [facility] Comment on above: Performed By: #### L IPA, CMP, CRP, NAT #### [facility] [address] [place] [address] Dr. Keturah Fisher IG % 0.3 % Normal 0.0-0.5 [facility] Comment on above: Performed By: #### L IPA, CMP, CRP, NAT #### [facility] [address] [place] [address] Dr. Keturah Fisher LYMPH # 2.6 103/ul Normal 1.2-3.8 [facility] Comment on above: Performed By: #### L IPA, CMP, CRP, NAT #### [facility] [address] [place] [address] Dr. Keturah Fisher Lymphocytes/100 WBC (Bld) 27.7 % Normal 20.5-60.0 [facility] Comment on above: Performed By: #### L IPA, CMP, CRP, NAT #### [facility] [address] [place] [address] Dr. Keturah Fisher MANUAL DIFF REQ NO Normal [facility] Comment on above: Performed By: #### L IPA, CMP, CRP, NAT #### [facility] [address] [place] [address] Dr. Keturah Fisher MCH (RBC) [Entitic mass] 32.6 pg Normal 26.7-34.0 [facility] Comment on above: Performed By: #### L IPA, CMP, CRP, NAT #### [facility] [address] [place] [address] Dr. Keturah Fisher MCHC (RBC) [Mass/Vol] 33.3 g/dL Normal 29.9-35.2 [facility] Comment on above: Performed By: #### L IPA, CMP, CRP, NAT #### [facility] [address] [place] [address] Dr. Keturah Fisher MCV (RBC) [Entitic vol] 97.9 fL Normal 81.0-99.0 [facility] Comment on above: Performed By: #### L IPA, CMP, CRP, NAT #### [facility] [address] [place] [address] Dr. Keturah Fisher MONO # 1.2 103/ul Critically high 0.3-0.8 [facility] Comment on above: Performed By: #### L IPA, CMP, CRP, NAT #### [facility] [address] [place] [address] Dr. Keturah Fisher Monocytes/100 WBC (Bld) 12.9 % Critically high 1.7-12.0 [facility] Comment on above: Performed By: #### L IPA, CMP, CRP, NAT #### [facility] [address] [place] [address] Dr. Keturah Fisher NEUT # 5.3 103/ul Normal 1.4-6.5 [facility] Comment on above: Performed By: #### L IPA, CMP, CRP, NAT #### [facility] [address] [address] [address] Keturah Fisher Neutrophils/100 WBC (Bld) 55.9 % Normal 43.0-75.0 [facility] Comment on above: Performed By: #### L IPA, CMP, CRP, NAT #### [facility] [address] [address] [address] Keturah Fishre Platelet mean volume (Bld) [Entitic vol] 9.8 fL Normal 9.5-13.5 [facility] Comment on above: Performed By: #### L IPA, CMP, CRP, NAT #### [facility] [address] [place] [address] Dr. Keturah Fisher PLT 229 103/ul Normal 150-450 [facility] Comment on above: Performed By: #### L IPA, CMP, CRP, NAT #### [facility] [address] [place] [address] Dr. Keturah Fisher RBC 4.33 106/ul Normal 4.20-5.40 [facility] Comment on above: Performed By: #### L IPA, CMP, CRP, NAT #### [facility] [address] [place] [address] Dr. Keturah Fisher WBC 9.5 103/ul Normal 4.0-11.0 [facility] Comment on above: Performed By: #### L IPA, CMP, CRP, NAT #### [facility] [address] [place] [address] Dr. Keturah Fisher LIPASEon 08-26-2021 Lipase [Catalytic activity/Vol] 146.0 U/L Normal 73.0-393.0 [facility] Comment on above: Performed By: #### A MY, CMP, LIPA ####[facility] [address] [place] [address]Dr. Keturah Fisher PROF 14(COMP METB)on 022 Albumin [Mass/Vol] 3.5 g/dL Normal 3.4-5.0 [facility] Comment on above: Performed By: #### A MY, CMP, LIPA ####[facility] [address] [place] [address]Dr. Elisaeli Fisher Albumin/Globulin [Mass ratio] 1.1 {ratio} Normal [facility] Comment on above: Performed By: #### A MY, CMP, LIPA ####[facility] [address] [place] [address]Dr. Keturah Fisher ALP [Catalytic activity/Vol] 139 U/L Critically high 46-116 [facility] Comment on above: Performed By: #### A MY, CMP, LIPA ####[facility] [address] [place] [address]Dr. Keturah Fisher ALT [Catalytic activity/Vol] 21 U/L Normal 14-59 [facility] Comment on above: Performed By: #### A MY, CMP, LIPA ####[facility] [address] [place] [address]Dr. Keturah Fisher Anion gap [Moles/Vol] 11.4 mmol/L Normal [facility] Comment on above: Performed By: #### A MY, CMP, LIPA ####[facility] [address]we[address] [place] [address]Dr. Keturah Fisher AST [Catalytic activity/Vol] 21 U/L Normal 15-37 [facility] Comment on above: Performed By: #### A MY, CMP, LIPA ####[facility] [address] [place] [address]Dr. Keturah Fisher Bilirubin [Mass/Vol] 0.2 mg/dL Normal 0.2-1.0 [facility] Comment on above: Performed By: #### A MY, CMP, LIPA ####[facility] [address] [place] [address]Dr. Keturah Fisher Calcium [Mass/Vol] 9.2 mg/dL Normal 8.5-10.1 [facility] Comment on above: Performed By: #### A MY, CMP, LIPA ####[facility] [address] [place] [address]Dr. Keturah Fisher Chloride [Moles/Vol] 107 mmol/L Normal 98-107 [facility] Comment on above: Performed By: #### A MY, CMP, LIPA ####[facility] [address] [place] [address]Dr. Keturah Fisher CO2 [Moles/Vol] 27.9 mmol/L Normal 21.0-32.0 [facility] Comment on above: Performed By: #### A MY, CMP, LIPA ####[facility] [address] [place] [address]Dr. Keturah Phillip Creatinine [Mass/Vol] 0.84 mg/dL Normal 0.55-1.02 [facility] Comment on above: Performed By: #### A MY, CMP, LIPA ####[facility] [address] [place] [address]Dr. Keturah Phillip EGFR-AF CITIZ[place] >60 Normal >=60 [facility] Comment on above: Performed By: #### A MY, CMP, LIPA ####[facility] [address] [place] [address]Dr. Keturah Phillip EGFR-NON AF CITIZEN OF [place] >60 Normal >=60 [facility] Comment on above: Performed By: #### A MY, CMP, LIPA ####[facility] [address] [place] [address]Dr. Keturah Phillip Globulin (S) [Mass/Vol] 3.3 g/dL Normal [facility] Comment on above: Performed By: #### A MY, CMP, LIPA ####[facility] [address] [place] [address]Dr. Keturah Phillip Glucose [Mass/Vol] 106 mg/dL Normal 74-106 [facility] Comment on above: Performed By: #### A MY, CMP, LIPA ####[facility] [address] [place] [address]Dr. Keturah Fisher Potassium [Moles/Vol] 4.3 mmol/L Normal 3.5-5.1 [facility] Comment on above: Performed By: #### A MY, CMP, LIPA ####[facility] [address] [place] [address]Dr. Keturah Fisher Protein [Mass/Vol] 6.8 g/dL Normal 6.4-8.2 [facility] Comment on above: Performed By: #### A MY, CMP, LIPA ####[facility] [address] [place], [place] [address]Tx. Keturah Fisher Sodium [Moles/Vol] 142 mmol/L Normal 136-145 [facility] Comment on above: Performed By: #### A MY, CMP, LIPA ####[facility] [address] [place], [place] [address]Zr. Keturah Fisher Urea nitrogen [Mass/Vol] 11.0 mg/dL Normal 7.0-18.0 [facility] Comment on above: Performed By: #### A MY, CMP, LIPA ####[facility] [address] [place] [id number]. Keturah Fisher Urea nitrogen/Creatinine [Mass ratio] 13.1 mg/mg Normal [facility] Comment on above: Performed By: #### A MY, CMP, LIPA ####[facility] [address] [place] [id number]. Keturah Fisher XR ABD FLAT UP_PA Jorje 08-26 XR ABD FLAT UP_PA CH EXAM: XR ABD FLAT UP_PA CH HISTORY: NAUSEA WITH VOMITING, UNSPECIFIED COMPARISON: X-ray performed 08/22/[address] abdomen pelvis 08/13/2021. TECHNIQUE: PA view of the chest and upright and supine views of the abdomen are obtained. FINDINGS: The cardiomediastinal silhouette is nonenlarged. Pulmonary vascular markings are within normal limits. Hyper inflation with flattening of the diaphragms persists. There is no focal airspace consolidation. The costophrenic angles are clear. No pneumothorax. No free air under the diaphragm. No dilated loops of small or large bowel. Cholecystectomy clips are present. There is mild fecal stasis. No suspicious calcifications or evidence of visceromegaly. Lower lumbar changes present with endplate sclerosis and spurring. IMPRESSION: Emphysema. No acute cardiopulmonary process identified. Nonobstructive bowel gas pattern. Electronically authenticated by: MILADIS BARRERA Date: 2021-08-26 04:59 Normal [facility] AMYLASEon 08-22-2021 Amylase [Catalytic activity/Vol] 155 U/L Critically high 25-115 [facility] Comment on above: Performed By: #### C MP, NAT, LIPA #### [facility] [address] [place] [address] Dr. Keturah Fisher CBC AUTO DIFFon 08-22-2021 BASO # 0.1 103/ul Normal 0.0-0.1 [facility] Comment on above: Performed By: #### L IPA, CMP, CRP, NAT #### [facility] [address] [place] [address] Dr. Keturah Fisher Basophils/100 WBC (Bld) 0.7 % Normal 0.2-2.0 [facility] Comment on above: Performed By: #### L IPA, CMP, CRP, NAT #### [facility] [address] [place] [address] Dr. Keturah Fisher EO # 0.1 103/ul Normal 0.0-0.7 [facility] Comment on above: Performed By: #### L IPA, CMP, CRP, NAT #### [facility] [address] [place] [address] Dr. Keturah Fisher Eosinophils/100 WBC (Bld) 0.7 % Critically low 0.9-7.0 [facility] Comment on above: Performed By: #### L IPA, CMP, CRP, NAT #### [facility] [address] [place] [address] Dr. Keturah Fisher Erythrocyte distribution width (RBC) [Ratio] 13.2 % Normal 11.0-15.0 [facility] Comment on above: Performed By: #### L IPA, CMP, CRP, NAT #### [facility] [address] [place] [address] Dr. Keturah Fisher Hematocrit (Bld) [Volume fraction] 41.1 % Normal 36.0-48.0 [facility] Comment on above: Performed By: #### L IPA, CMP, CRP, NAT #### [facility] [address] [place] [address] Dr. Keturah Fisher Hemoglobin (Bld) [Mass/Vol] 13.8 g/dL Normal 12.0-16.0 [facility] Comment on above: Performed By: #### L IPA, CMP, CRP, NAT #### [facility] [address] [place] [address] Dr. Keturah Fisher IG # 0.03 10e3/ul Normal 0.00-0.03 [facility] Comment on above: Performed By: #### L IPA, CMP, CRP, NAT #### [facility] [address] [place] [address] Dr. Keturah Fisher IG % 0.2 % Normal 0.0-0.5 [facility] Comment on above: Performed By: #### L IPA, CMP, CRP, NAT #### [facility] [address] [place] [address] Dr. Keturah Fisher LYMPH # 2.6 103/ul Normal 1.2-3.8 [facility] Comment on above: Performed By: #### L IPA, CMP, CRP, NAT #### [facility] [address] [place] [address] Dr. Keturah Fisher Lymphocytes/100 WBC (Bld) 21.4 % Normal 20.5-60.0 [facility] Comment on above: Performed By: #### L IPA, CMP, CRP, NAT #### [facility] [address] [place] [address] Dr. Keturah Fisher MANUAL DIFF REQ NO Normal [facility] Comment on above: Performed By: #### L IPA, CMP, CRP, NAT #### [facility] [address] [place] [address] Dr. Keturah Fisher MCH (RBC) [Entitic mass] 32.2 pg Normal 26.7-34.0 [facility] Comment on above: Performed By: #### L IPA, CMP, CRP, NAT #### [facility] [address] [place] [address] Dr. Keturah Fisher MCHC (RBC) [Mass/Vol] 33.6 g/dL Normal 29.9-35.2 [facility] Comment on above: Performed By: #### L IPA, CMP, CRP, NAT #### [facility] [address] [place] [address] Dr. Keturah Fisher MCV (RBC) [Entitic vol] 95.8 fL Normal 81.0-99.0 [facility] Comment on above: Performed By: #### L IPA, CMP, CRP, NAT #### [facility] [address] [place] [address] Dr. Keturah Fisher MONO # 0.9 103/ul Critically high 0.3-0.8 [facility] Comment on above: Performed By: #### L IPA, CMP, CRP, NAT #### [facility] [address] [place] [address] Dr. Keturah Fisher Monocytes/100 WBC (Bld) 7.6 % Normal 1.7-12.0 [facility] Comment on above: Performed By: #### L IPA, CMP, CRP, NAT #### [facility] [address] [place] [address] Dr. Keturah Fisher NEUT # 8.5 103/ul Critically high 1.4-6.5 [facility] Comment on above: Performed By: #### L IPA, CMP, CRP, NAT #### [facility] [address] [place] [address] Dr. Keturah Fisher Neutrophils/100 WBC (Bld) 69.4 % Normal 43.0-75.0 [facility] Comment on above: Performed By: #### L IPA, CMP, CRP, NAT #### [facility] [address] [place] [address] Dr. Keturah Fisher Platelet mean volume (Bld) [Entitic vol] 9.5 fL Normal 9.5-13.5 [facility] Comment on above: Performed By: #### L IPA, CMP, CRP, NAT #### [facility] [address] [place] [address] Dr. Keturah Fisher PLT 261 103/ul Normal 150-450 [facility] Comment on above: Performed By: #### L IPA, CMP, CRP, NAT #### [facility] [address] [place] [address] Dr. Keturah Fisher RBC 4.29 106/ul Normal 4.20-5.40 [facility] Comment on above: Performed By: #### L IPA, CMP, CRP, NAT #### [facility] [address] [place] [address] Dr. Keturah Fisher WBC 12.2 103/ul Critically high 4.0-11.0 [facility] Comment on above: Performed By: #### L IPA, CMP, CRP, NAT #### [facility] [address] [place] [address] Dr. Keturah Fisher LIPASEon 08-22-2021 Lipase [Catalytic activity/Vol] 419.0 U/L Critically high 73.0-393.0 [facility] Comment on above: Performed By: #### C MP, NAT, LIPA #### [facility] [address] [place] [address] Dr. Keturah Fisher PROF 14(COMP METB)on 022 Albumin [Mass/Vol] 3.9 g/dL Normal 3.4-5.0 [facility] Comment on above: Performed By: #### C MP, NAT, LIPA #### [facility] [address] [place] [address] Dr. Keturah Fisher Albumin/Globulin [Mass ratio] 1.2 {ratio} Normal [facility] Comment on above: Performed By: #### C MP, NAT, LIPA #### [facility] [address] [place] [address] Dr. Keturah Fisher ALP [Catalytic activity/Vol] 137 U/L Critically high 46-116 [facility] Comment on above: Performed By: #### C MP, NAT, LIPA #### [facility] [address] [place] [address] Dr. Keturah Fisher ALT [Catalytic activity/Vol] 22 U/L Normal 14-59 [facility] Comment on above: Performed By: #### C MP, NAT, LIPA #### [facility] [address] [place] [address] Dr. Keturah Fisher Anion gap [Moles/Vol] 12.9 mmol/L Normal [facility] Comment on above: Performed By: #### C LIZY NAT, LIPA #### [facility] [address] [place] [address] [address] Keturah Fisher AST [Catalytic activity/Vol] 20 U/L Normal 15-37 [facility] Comment on above: Performed By: #### C MP NAT, LIPA #### [facility] [address] [place] [address] Dr. Keturah Fisher Bilirubin [Mass/Vol] 0.2 mg/dL Normal 0.2-1.0 [facility] Comment on above: Performed By: #### C LIZY NAT, LIPA #### [facility] [address] [place] [address] Dr. Keturah Fisher Calcium [Mass/Vol] 9.5 mg/dL Normal 8.5-10.1 [facility] Comment on above: Performed By: #### C LIZY NAT, LIPA #### [facility] [address] [place] [address] Dr. Keturah Fisher Chloride [Moles/Vol] 104 mmol/L Normal 98-107 [facility] Comment on above: Performed By: #### C LIZY NAT, LIPA #### [facility] [address] [place] [address] Dr. Keturah Fisher CO2 [Moles/Vol] 23.7 mmol/L Normal 21.0-32.0 [facility] Comment on above: Performed By: #### C LIZY NAT, LIPA #### [facility] [address] [place] [address] Dr. Keturah Fisher Creatinine [Mass/Vol] 0.85 mg/dL Normal 0.55-1.02 [facility] Comment on above: Performed By: #### C LIZY NAT, LIPA #### [facility] [address] [place] [address] Dr. Keturah Fisher EGFR-AF [place] >60 Normal >=60 [facility] Comment on above: Performed By: #### C LIZY NAT, LIPA #### [facility] [address] [place] [address] Dr. Keturah Fisher EGFR-NON AF [place]IZEN [place] >60 Normal >=60 [facility] Comment on above: Performed By: #### C NAT MEDEL LIPA #### [facility] [address] [place] [address] [address] Keturah Fisher Globulin (S) [Mass/Vol] 3.3 g/dL Normal [facility] Comment on above: Performed By: #### C NAT MEDEL LIPA #### [facility] [address] [place] [address] [address] Keturha Fisher Glucose [Mass/Vol] 130 mg/dL Critically high 74-[address] [facility] Comment on above: Performed By: #### C NAT MEDEL LIPA #### [facility] [address] [place] [address] Dr. Keturah Fisher Potassium [Moles/Vol] 3.6 mmol/L Normal 3.5-5.1 [facility] Comment on above: Performed By: #### C NAT MEDEL LIPA #### [facility] [address] [place] [address] Dr. Keturah Fisher Protein [Mass/Vol] 7.2 g/dL Normal 6.4-8.2 [facility] Comment on above: Performed By: #### C NAT MEDEL LIPA #### [facility] [address] [place] [address] Dr. Keturah Fisher Sodium [Moles/Vol] 137 mmol/L Normal 136-145 [facility] Comment on above: Performed By: #### C NAT MEDEL LIPA #### [facility] [address] [place] [address] Dr. Keturah Fisher Urea nitrogen [Mass/Vol] 9.0 mg/dL Normal 7.0-18.0 [facility] Comment on above: Performed By: #### C NAT MEDEL LIPA #### [facility] [address] [place] [address] [address] Keturah Fisher Urea nitrogen/Creatinine [Mass ratio] 10.6 mg/mg Normal [facility] Comment on above: Performed By: #### C NAT MEDEL LIPA #### [facility] [address] [place], [place] [address] Dr. Keturah Fisher XR ABD FLAT UP_PA Jorje 08-22 XR ABD FLAT UP_PA CH EXAMINATION: XR ABD FLAT UP_PA CH HISTORY: NAUSEA WITH VOMITING, UNSPECIFIED , epigastric pain COMPARISON: XR abdomen with PA chest 07/19/2021 FINDINGS: LUNGS: No infiltrate, pneumothorax, or pleural effusion. MEDIASTINUM: No abnormal widening. BOWEL GAS PATTERN: Non-obstructed. No abnormal dilation or suspicious fluid levels. FREE AIR: None. CALCIFICATIONS: None significant. BONES: No fracture or visible bone lesion. OTHER: Negative. IMPRESSION: 1. No acute cardiopulmonary process. 2. Normal bowel gas pattern. No suspicious findings. Electronically authenticated by: TRI HANSON Date: 2021-08-22 14:54 Normal [facility] CBC AUTO DIFFon 08-13-2021 BASO # 0.1 103/ul Normal 0.0-0.1 [facility] Comment on above: Performed By: #### C BC ####[facility] [address] [place] [address]Dr. Keturah Fisher Basophils/100 WBC (Bld) 0.6 % Normal 0.2-2.0 [facility] Comment on above: Performed By: #### C BC ####[facility] [address] [place] [address]DrGopal Fisher EO # 0.1 103/ul Normal 0.0-0.7 [facility] Comment on above: Performed By: #### C BC ####[facility] [address] [place] [address]Dr. Keturah Fisher Eosinophils/100 WBC (Bld) 1.1 % Normal 0.9-7.0 [facility] Comment on above: Performed By: #### C BC ####[facility] [address] [place] [address]DrGopal Fisher Erythrocyte distribution width (RBC) [Ratio] 12.6 % Normal 11.0-15.0 [facility] Comment on above: Performed By: #### C BC ####[facility] [address] [place] [address]Dr. Keturah Fisher Hematocrit (Bld) [Volume fraction] 42.3 % Normal 36.0-48.0 [facility] Comment on above: Performed By: #### C BC ####[facility] [address] [place] [address]Dr. Keturah Fisher Hemoglobin (Bld) [Mass/Vol] 14.1 g/dL Normal 12.0-16.0 [facility] Comment on above: Performed By: #### C BC ####[facility] [address] [place] [address]Dr. Elisaeli Phillip IG # 0.03 10e3/ul Normal 0.00-0.03 [facility] Comment on above: Performed By: #### C BC ####[facility] [address] [place], [place] [address]Dr. Keturah Fisher IG % 0.3 % Normal 0.0-0.5 [facility] Comment on above: Performed By: #### C BC ####[facility] [address] [place] [address]Dr. Elisaeli Fisher LYMPH # 2.4 103/ul Normal 1.2-3.8 [facility] Comment on above: Performed By: #### C BC ####[facility] [address] [place], [place] [address]Dr. Elisaeli Fisher Lymphocytes/100 WBC (Bld) 22.3 % Normal 20.5-60.0 [facility] Comment on above: Performed By: #### C BC ####[facility] [address] [place] [address]Dr. Elisaeli Fisher MANUAL DIFF REQ NO Normal [facility] Comment on above: Performed By: #### C BC ####[facility] [address] [place] [address]Dr. Keturah Phillip MCH (RBC) [Entitic mass] 32.5 pg Normal 26.7-34.0 [facility] Comment on above: Performed By: #### C BC ####[facility] [address] [place], [place] [address]Dr. Keturah Fisher MCHC (RBC) [Mass/Vol] 33.3 g/dL Normal 29.9-35.2 [facility] Comment on above: Performed By: #### C BC ####[facility] [address] [place] [phone]. Keturah Fisher MCV (RBC) [Entitic vol] 97.5 fL Normal 81.0-99.0 [facility] Comment on above: Performed By: #### C BC ####[facility] [address] [place] [phone]. Keturah Fisher MONO # 1.0 103/ul Critically high 0.3-0.8 [facility] Comment on above: Performed By: #### C BC ####[facility] [address] [place] [address]Dr. Elisaeli Fisher Monocytes/100 WBC (Bld) 8.7 % Normal 1.7-12.0 [facility] Comment on above: Performed By: #### C BC ####[facility] [address] [place] [address]Dr. Keturah Fisher NEUT # 7.3 103/ul Critically high 1.4-6.5 [facility] Comment on above: Performed By: #### C BC ####[facility] [address] [place] [address]Dr. Keturah Fisher Neutrophils/100 WBC (Bld) 67.0 % Normal 43.0-75.0 [facility] Comment on above: Performed By: #### C BC ####[facility] [address] [place] [phone]. Keturah Phillip Platelet mean volume (Bld) [Entitic vol] 9.5 fL Normal 9.5-13.5 [facility] Comment on above: Performed By: #### C BC ####[facility] [address] [place] [phone]. Keturah Phillip PLT 272 103/ul Normal 150-450 [facility] Comment on above: Performed By: #### C BC ####[facility] [address] [place], [place] [address]Ww. Keturah Fisher RBC 4.34 106/ul Normal 4.20-5.40 [facility] Comment on above: Performed By: #### C BC ####[facility] [address] [place], [place] [address]YiGopal Fisher WBC 10.9 103/ul Normal 4.0-11.0 [facility] Comment on above: Performed By: #### C BC ####[facility] [address] [place], [place] [address]Op. Keturah Fisher CT ABD/PELV W CONon 08-14-19 CT ABD/PELV W CON EXAM: CT ABD/PELV W CON REASON FOR EXAM: Female, 51 years, Left lower quadrant pain. TECHNIQUE: Computed tomography of the abdomen and pelvis is performed in the axial projection from the lung bases to the pubic symphysis. Sagittal and coronal reconstructed images are performed. Dose reduction techniques were achieved by using automated exposure control and/or adjustment of mA and/or KVP according to patient size and/or use of iterative reconstruction technique. A total of 75 mL Omnipaque 300 IV contrast was given. Study was performed without oral contrast. Study is slightly limited due to motion artifact. COMPARISON: 06/04/2021 FINDINGS: Lung bases: The lung bases are clear. There is no pleural effusion. The visualized portions of the heart are unremarkable. Liver: There is mild intrahepatic biliary ductal dilation. This appears new from the comparison study. Gallbladder: The gallbladder has been removed. Spleen: The spleen is normal. Pancreas: The pancreatic duct measures approximately 5 mm in diameter, slightly more prominent than on the prior study. Adrenal glands: The adrenal glands are normal bilaterally. Right kidney: The kidney is normal in size. There is no renal calculus or hydronephrosis. Left kidney: The kidney is normal in size. There is no renal calculus or hydronephrosis. Stomach: The stomach is partially distended with fluid. Small bowel: There appears to be mild wall thickening within the duodenum. Question duodenitis. Large bowel: The colon is normal. The cecum is positioned deep within the pelvis, with the appendix visualized within the left lower pelvis. Appendix: The appendix is visualized, and is normal. Aorta: There are mild atherosclerotic calcifications of the abdominal aorta. IVC: The IVC is normal. Retroperitoneum: Normal retroperitoneum. Bladder: The bladder is normal. Pelvic organs: The uterus is absent, consistent with hysterectomy. Abdominal wall: Normal abdominal wall. Osseous structures: Degenerative changes are seen in the visualized spine. IMPRESSION: Mild intrahepatic biliary ductal dilation, new from the prior study. The pancreatic duct is prominent, measuring approximately 5 mm in diameter. No definite peripancreatic edema. This patient may benefit from further evaluation from MRCP. Suspected thickening to the wall of the duodenum, question duodenitis. This can be further evaluated with upper endoscopy, as clinically indicated. No small bowel obstruction or acute renal pathology. Study is slightly limited due to motion artifact. Additional nonacute findings, as detailed above. Electronically authenticated by: HEBERT MCPHERSON Date: 2021-08-13 17:14 Normal [facility] ER URINE PROFILEon 2 Bilirubin Ql (U) Negative Normal NEGATIVE [facility] Comment on above: Performed By: #### C BC #### [facility] [address] [place] [address] Dr. Keturah Fisher Clarity (U) CLEAR Normal CLEAR [facility] Comment on above: Performed By: #### C BC #### [facility] [address] [place] [address] Dr. Keturah Fisher Color (U) LT. YELLOW Normal YELLOW [facility] Comment on above: Performed By: #### C BC #### [facility] Laboratory [address] [place] [address] Dr. Keturah PATIÑOGarfield A micrscopic examination will be performed if indicated. Normal [facility] Comment on above: Performed By: #### C BC #### [facility] [address] [place] [address] Dr. Keturah Fisher Glucose Ql (U) Negative Normal NEGATIVE [facility] Comment on above: Performed By: #### C BC #### [facility] [address] [place] [address] Dr. Keturah Fisher Hemoglobin Ql (U) Negative Normal NEGATIVE [facility] Comment on above: Performed By: #### C BC #### [facility] [address] [place] [address] Dr. Keturah Fisher Ketones Ql (U) Negative Normal NEGATIVE [facility] Comment on above: Performed By: #### C BC #### [facility] [address] [place] [address] Dr. Keturah Fisher LEUKOCYTES Negative Normal NEGATIVE [facility] Comment on above: Performed By: #### C BC #### [facility] [address] [place] [address] Dr. Keturah Fisher Nitrite Ql (U) Negative Normal NEGATIVE [facility] Comment on above: Performed By: #### C BC #### [facility] [address] [place] [address] Dr. Keturah Fisher pH (U) 5.5 [pH] Normal 5-9 [facility] Comment on above: Performed By: #### C BC #### [facility] [address] [place] [address] Dr. Keturah Fisher SPEC GRAVITY 1.010 Normal 1.005-<=1.[address] [place] [address] Comment on above: Performed By: #### C BC #### [facility] [address] [place] [address] Dr. Keturah Fisher UA PROTEIN Negative Normal NEGATIVE/ TRACE [facility] Comment on above: Performed By: #### C BC #### [facility] [address] [place] [address] Dr. Keturah Fisher UR MICRO IND NOT INDICATED Normal [facility] Comment on above: Performed By: #### C BC #### [facility] [address] [place] [address] Dr. Keturah Fisher Urobilinogen Qn (U) 0.2 {Marizol'U}/dL Normal 0.2 - 1. 0 [facility] Comment on above: Performed By: #### C BC #### [facility] [address] [place] [address] Dr. Keturah Fisher LIPASEon 08-13-2021 Lipase [Catalytic activity/Vol] 217.0 U/L Normal 73.0-393.0 [facility] Comment on above: Performed By: #### C BC #### [facility] [address] [place] [address] Dr. Keturah Fisher PROF 14(COMP METB)on 022 Albumin [Mass/Vol] 3.9 g/dL Normal 3.4-5.0 [facility] Comment on above: Performed By: #### C BC #### [facility] [address] [place] [address] Dr. Keturah Fisher Albumin/Globulin [Mass ratio] 1.1 {ratio} Normal [facility] Comment on above: Performed By: #### C BC #### [facility] [address] [place] [address] Dr. Keturah Fisher ALP [Catalytic activity/Vol] 140 U/L Critically high 46-116 [facility] Comment on above: Performed By: #### C BC #### [facility] [address] [place] [address] Dr. Keturah Fisher ALT [Catalytic activity/Vol] 24 U/L Normal 14-59 [facility] Comment on above: Performed By: #### C BC #### [facility] [address] [place] [address] Dr. Keturah Fisher Anion gap [Moles/Vol] 11.7 mmol/L Normal [facility] Comment on above: Performed By: #### C BC #### [facility] [address] [place] [address] Dr. Keturah Fisher AST [Catalytic activity/Vol] 19 U/L Normal 15-37 [facility] Comment on above: Performed By: #### C BC #### [facility] [address] [place] [address] Dr. Keturah Fisher Bilirubin [Mass/Vol] 0.2 mg/dL Normal 0.2-1.0 [facility] Comment on above: Performed By: #### C BC #### [facility] [address] [place] [address] Dr. Keturah Fisher Calcium [Mass/Vol] 9.9 mg/dL Normal 8.5-10.1 [facility] Comment on above: Performed By: #### C BC #### [facility] [address] [place] [address] Dr. Keturah Fisher Chloride [Moles/Vol] 105 mmol/L Normal 98-107 [facility] Comment on above: Performed By: #### C BC #### [facility] [address] [address] [address] Keturah Fisher CO2 [Moles/Vol] 29.1 mmol/L Normal 21.0-32.0 [facility] Comment on above: Performed By: #### C BC #### [facility] [address] [address] [address] Keturah Fisher Creatinine [Mass/Vol] 0.81 mg/dL Normal 0.55-1.02 [facility] Comment on above: Performed By: #### C BC #### [facility] [address] [place] [address] Dr. Keturah Fisher EGFR-AF [place]IZ[place] >60 Normal >=60 [facility] Comment on above: Performed By: #### C BC #### [facility] [address] [place] [address] Dr. Keturah Fisher EGFR-NON AF CITIZEN OF [place] >60 Normal >=60 [facility] Comment on above: Performed By: #### C BC #### [facility] [address] [place] [address] Dr. Keturah Fisher Globulin (S) [Mass/Vol] 3.4 g/dL Normal [facility] Comment on above: Performed By: #### C BC #### [facility] [address] [place] [address] Dr. Keturah Fisher Glucose [Mass/Vol] 87 mg/dL Normal 74-106 [facility] Comment on above: Performed By: #### C BC #### [facility] [address] [place] [address] Dr. Keturah Fisher Potassium [Moles/Vol] 3.8 mmol/L Normal 3.5-5.1 [facility] Comment on above: Performed By: #### C BC #### [facility] [address] [place] [address] Dr. Keturah Fisher Protein [Mass/Vol] 7.3 g/dL Normal 6.4-8.2 [facility] Comment on above: Performed By: #### C BC #### [facility] [address] [place], [place] [address] Dr. Keturah Fisher Sodium [Moles/Vol] 142 mmol/L Normal 136-145 [facility] Comment on above: Performed By: #### C BC #### [facility] [address] [place], [place] [address] Dr. Keturah Fisher Urea nitrogen [Mass/Vol] 11.0 mg/dL Normal 7.0-18.0 [facility] Comment on above: Performed By: #### C BC #### [facility] [address] [place], [place] [address] Dr. Keturah Fisher Urea nitrogen/Creatinine [Mass ratio] 13.6 mg/mg Normal [facility] Comment on above: Performed By: #### C BC #### [facility] [address] [place], [place] [address] Dr. Keturah Fisher Albumin [Mass/volume] in Ser um or PlasmaOrdered By: Keaton Barnard on 08-11-2021 Albumin [Mass/Vol] 3.4 g/dL 3.2-5.5 [facility] Basophils Auto (Bld) [#/Vol] Ordered By: Keaton Barnard on 08-11-2021 Basophils (Bld) [#/Vol] 0.1 10*3/uL 0.0-0.2 [facility] Basophils/100 WBC Auto (Bld) Ordered By: Keaton Barnard on 08-11-2021 Basophils/100 WBC (Bld) 0.9 % . [facility] Bilirubin Test strip Ql (U)O rdered By: Keaton Barnard on 08-11-2021 Bilirubin Ql (U) Negative Negative [facility] Blood hemoglobin measurement (mass/volume)Ordered By: Keaton Barnard on 08-11-2021 Hemoglobin (Bld) [Mass/Vol] 14.1 g/dL 11.8-15.4 [facility] Blood leukocytes automated c ount (number/volume)Ordered By: Keaton Barnard on 08-11-2021 WBC (Bld) [#/Vol] 9.7 10*3/uL 4.5-11.0 [facility] Color Auto (U)Ordered By: Herminia Barnard on 08-11-2021 Color (U) Yellow Yellow [facility] Creatinine and Glomerular fi ltration rate.predicted panel (S/P/Bld)Ordered By: Keaton Barnard on 08-11-2021 Creatinine [Mass/Vol] 0.95 mg/dL 0.44-1.03 [facility] Direct bilirubin measurement Ordered By: Keaton Barnard on 08-11-2021 Bilirubin.direct [Mass/Vol] mg/dL 0.0-0.4 [facility] Eosinophils Auto (Bld) [#/Vo l]Ordered By: Keaton Barnard on 08-11-2021 Eosinophils (Bld) [#/Vol] 0.1 10*3/uL 0.0-0.45 [facility] Eosinophils/100 WBC Auto (Bl d)Ordered By: Keaton Barnard on 08-11-2021 Eosinophils/100 WBC (Bld) 1.3 % . [facility] Erythrocyte distribution wid th Auto (RBC) [Ratio]Ordered By: Keaton Barnard on 08-11-2021 Erythrocyte distribution width (RBC) [Ratio] 13.2 % 11.9-15.3 [facility] Estimated glomerular filtrat ion rate (GFR) non- AmericanOrdered By: Keaton Barnard on 08-11-2021 GFR/1.73 sq M.predicted among non-blacks MDRD (S/P/Bld) [Vol rate/Area] > 60 mL/Min [facility] Globulin Calc (S) [Mass/Vol] Ordered By: Keaton Barnard on 08-11-2021 Globulin (S) [Mass/Vol] 2.6 g/dL [facility] Hematocrit Auto (Bld) [Volum e fraction]Ordered By: Keaton Barnard on 08-11-2021 Hematocrit (Bld) [Volume fraction] 42.1 % 34.0-46.4 [facility] Ketones Auto test strip (U) [Mass/Vol]Ordered By: Keaton Barnard on 08-11-2021 Ketones (U) [Mass/Vol] Negative Negative [facility] - Chemistry and C hemistry - challengeOrdered By: Keaton Barnard on 08-11-2021 Lipase [Catalytic activity/Vol] 89.0 U/L 22-51 [facility] Laboratory - CoagulationOrde red By: Keaton Barnard on 08-11-2021 PT Coag (PPP) [Time] 12.5 s 9.0-12.9 [facility] Laboratory - Hematology and Cell countsOrdered By: Keaton Barnard on 08-11-2021 Nucleated RBC/100 WBC (Bld) [Ratio] 0.1 % 0-0.5 [facility] Lymphocytes Auto (Bld) [#/Vo l]Ordered By: Keaton Barnard on 08-11-2021 Lymphocytes (Bld) [#/Vol] 2.5 10*3/uL 1.00-4.8 [facility] Lymphocytes/100 WBC Auto (Bl d)Ordered By: Keaton Barnard on 08-11-2021 Lymphocytes/100 WBC (Bld) 25.8 % . [facility] MCH Auto (RBC) [Entitic mass ]Ordered By: Keaton Barnard on 08-11-2021 MCH (RBC) [Entitic mass] 32.4 pg 24.7-34.3 [facility] MCHC Auto (RBC) [Mass/Vol]Or dered By: Keaton Barnard on 08-11-2021 MCHC (RBC) [Mass/Vol] 33.4 g/dL 32.0-35.0 [facility] MCV Auto (RBC) [Entitic vol] Ordered By: Keaton Barnard on 08-11-2021 MCV (RBC) [Entitic vol] 96.8 fL 80-100 [facility] Monocytes Auto (Bld) [#/Vol] Ordered By: Keaton Barnard on 08-11-2021 Monocytes (Bld) [#/Vol] 0.8 10*3/uL 0.0-0.8 [facility] Monocytes/100 WBC Auto (Bld) Ordered By: Keaton Barnard on 08-11-2021 Monocytes/100 WBC (Bld) 8.7 % . [facility] Neutrophils Auto (Bld) [#/Vo l]Ordered By: Keaton Barnard on 08-11-2021 Neutrophils (Bld) [#/Vol] 6.1 10*3/uL 1.8-7.7 [facility] Neutrophils/100 WBC Auto (Bl d)Ordered By: Keaton Barnard on 08-11-2021 Neutrophils/100 WBC (Bld) 63.3 % . [facility] Nitrite Test strip Ql (U)Ord ered By: Keaton Barnard on 08-11-2021 Nitrite Ql (U) Negative Negative [facility] No Panel InformationOrdered By: Keaton Barnard on 08-11-2021 Estimated GFR () > 60 mL/Min [facility] Comment on above: GFR estimated refere nce range: According to KDOQI guidelines, <60 ml/min/1.73m2 is sufficient to diagnose a patient with chronic kidney disease. Pharmacy Creatinine Clearance (Chem 62.33 [facility] Platelet mean volume Auto (B ld) [Entitic vol]Ordered By: Keaton Barnard on 08-11-2021 Platelet mean volume (Bld) [Entitic vol] 8.0 fL 6.3-10.7 [facility] Platelet poor plasma interna tional normalized ratio (INR) by coagulation assay (relatOrdered By: Keaton Barnard on 08-11-2021 INR Coag (PPP) [Relative time] 1.1 {INR} [facility] Comment on above: INR Therapeutic Rang e A) Pre- and Peroperative OAT started two weeks before surgery. NOT HIP SURGERY: 1.5 - 2.5 HIP SURGERY: 2 - 3 B) Primary and secondary prevention of venous THROMBOSIS: 2 - 3 C) Active venous thrombosis, pulmonary embolism and prevention of recurrent venous thrombosis: 2 - 3 D) Prevention of arterial thromboembolism including patients with mechanical heart valves: 3 - 4.5 Platelets Auto (Bld) [#/Vol] Ordered By: Keaton Barnard on 08-11-2021 Platelets (Bld) [#/Vol] 252 10*3/uL 150-450 [facility] Protein Auto test strip (U) [Mass/Vol]Ordered By: Keaton Barnard on 08-11-2021 Protein (U) [Mass/Vol] Negative Negative Fi [facility] Protein [Mass/volume] in Ser um or PlasmaOrdered By: Keaton Barnard on 08-11-2021 Protein [Mass/Vol] 6.0 g/dL 6.1-7.9 [facility] RBC Auto (Bld) [#/Vol]Ordere d By: Keaton Barnard on 08-11-2021 RBC (Bld) [#/Vol] 4.35 10*6/uL 3.60-5.00 [facility] Serum or plasma alanine hughes otransferase measurement without P-5'-P (enzymatic activiOrdered By: Keaton Barnard on 08-11-2021 ALT No additional P-5'-P [Catalytic activity/Vol] 12 U/L 10-60 [facility] Serum or plasma albumin/glob ulin mass ratioOrdered By: Keaton Barnard on 08-11-2021 Albumin/Globulin [Mass ratio] 1.3 {ratio} [facility] Serum or plasma alkaline jaqueline sphatase measurement (enzymatic activity/volume)Ordered By: Keaton Barnard on 08-11-2021 ALP [Catalytic activity/Vol] 98 U/L 32-92 [facility] Serum or plasma aspartate am inotransferase measurement (enzymatic activity/volume)Ordered By: Keaton Barnard on 08-11-2021 AST [Catalytic activity/Vol] 17 U/L 10-42 [facility] Serum or plasma calcium priscilla urement (mass/volume)Ordered By: Keaton Barnard on 08-11-2021 Calcium [Mass/Vol] 9.3 mg/dL 8.2-10.2 [facility] Serum or plasma chloride daron surement (moles/volume)Ordered By: Keaton Barnard on 08-11-2021 Chloride [Moles/Vol] 104 mmol/L 95-114 [facility] Serum or plasma glucose priscilla urement (mass/volume)Ordered By: Keaton Barnard on 08-11-2021 Glucose [Mass/Vol] 95 mg/dL 70-100 [facility] Comment on above: ADA recommended refe rence range Random Glucose Reference Range is dependent on time and content of last meal. Glucose of more than 200 mg/dL in a nonstressed, ambulatory subject supports the diagnosis of Diabetes Mellitus. Serum or plasma non-glucuron idated bilirubin measurement (mass/volume)Ordered By: Keaton Barnard on 08-11-2021 Bilirubin.indirect [Mass/Vol] TNP [facility] Comment on above: Test not performed Serum or plasma potassium me asurement (moles/volume)Ordered By: Keaton Barnard on 08-11-2021 Potassium [Moles/Vol] 3.8 mmol/L 3.5-5.1 [facility] Serum or plasma sodium measu rement (moles/volume)Ordered By: Keaton Barnard on 08-11-2021 Sodium [Moles/Vol] 138 mmol/L 136-146 [facility] Serum or plasma total biliru bin measurement (mass/volume)Ordered By: Keaton Barnard on 08-11-2021 Bilirubin [Mass/Vol] 0.3 mg/dL 0.3-1.2 [facility] Serum or plasma total carbon dioxide measurement (moles/volume)Ordered By: Keaton Barnard on 08-11-2021 CO2 [Moles/Vol] 24.8 mmol/L 22.0-30.0 [facility] Serum or plasma urea nitroge n measurement (mass/volume)Ordered By: Keaton Barnard on 08-11-2021 Urea nitrogen [Mass/Vol] 10 mg/dL 9-23 [facility] Specific gravity Auto test s trip (U) [Rel density]Ordered By: Keaton Barnard on 08-11-2021 Specific gravity (U) [Rel density] 1.028 1.001-1.030 [facility] Troponin I.cardiac [Mass/vol ume] in Serum or Plasma by High sensitivity methodOrdered By: Keaton Barnard on 08-11-2021 Troponin I.cardiac High sensitivity method [Mass/Vol] 3 pg/mL 0-15 [facility] Urine clarity by refractomet ry automatedOrdered By: Keaton Barnard on 08-11-2021 Clarity Refractometry automated (U) Clear Clear [facility] Urine glucose measurement by automated test strip (mass/volume)Ordered By: Keaton Barnard on 08-11-2021 Glucose Auto test strip (U) [Mass/Vol] Normal mg/dL Normal [facility] Urine hemoglobin detection b y automated test stripOrdered By: Keaton Barnard on 08-11-2021 Hemoglobin Auto test strip Ql (U) Negative Negative [facility] Urine leukocyte esterase det ection by automated test stripOrdered By: Keaton Barnard on 08-11-2021 Leukocyte esterase Auto test strip Ql (U) Negative Negative [facility] Urobilinogen Auto test strip (U) [Mass/Vol]Ordered By: Keaton Barnard on 08-11-2021 Urobilinogen (U) [Mass/Vol] Normal mg/dL Normal [facility] pH Auto test strip (U)Ordere d By: Keaton Barnard on 08-11-2021 pH (U) 5.0 [pH] 5.0-9.0 [facility] AMYLASEon 07-31-2021 Amylase [Catalytic activity/Vol] 158 U/L Critically high 25-115 [facility] Comment on above: Performed By: #### L IPA, CMP, CRP, NAT #### [facility] [address] [place], [place] [address] Dr. Keturah Fisher CBC AUTO DIFFon 07-31-2021 BASO # 0.1 103/ul Normal 0.0-0.1 [facility] Comment on above: Performed By: #### C BC ####[facility] [address] [address]Dr. Keturah Fisher Basophils/100 WBC (Bld) 0.7 % Normal 0.2-2.0 [facility] Comment on above: Performed By: #### C BC ####[facility] [address] [address]Dr. Keturah Fisher EO # 0.1 103/ul Normal 0.0-0.7 [facility] Comment on above: Performed By: #### C BC ####[facility] [address] [address]Dr. Keturah Fisher Eosinophils/100 WBC (Bld) 0.9 % Normal 0.9-7.0 [facility] Comment on above: Performed By: #### C BC ####[facility] [address] [address]DrGopal Fisher Erythrocyte distribution width (RBC) [Ratio] 12.7 % Normal 11.0-15.0 [facility] Comment on above: Performed By: #### C BC ####[facility] [address] [address]Dr. Keturah Fisher Hematocrit (Bld) [Volume fraction] 43.2 % Normal 36.0-48.0 [facility] Comment on above: Performed By: #### C BC ####[facility] [address] [address]DrGopal Keturah Fisher Hemoglobin (Bld) [Mass/Vol] 14.5 g/dL Normal 12.0-16.0 [facility] Comment on above: Performed By: #### C BC ####[facility] [address] [address]DrGpoal Keturah Fisher IG # 0.04 10e3/ul Critically high 0.00-0.03 [facility] Comment on above: Performed By: #### C BC ####[facility] [address] [place], [place] [address]DrGopal Elisaeli Fisher IG % 0.4 % Normal 0.0-0.5 [facility] Comment on above: Performed By: #### C BC ####[facility] [address] [place], [place] [address]DrGopal Elisaeli Fisher LYMPH # 2.8 103/ul Normal 1.2-3.8 [facility] Comment on above: Performed By: #### C BC ####[facility] [address] [place], [place] [address]DrGopal Elisaeli Fisher Lymphocytes/100 WBC (Bld) 24.9 % Normal 20.5-60.0 [facility] Comment on above: Performed By: #### C BC ####[facility] [address] [place], [place] [address]DrGopal Elisaeli Fisher MANUAL DIFF REQ NO Normal [facility] Comment on above: Performed By: #### C BC ####[facility] [address] [place], [place] [address]DrGopal Fisher MCH (RBC) [Entitic mass] 32.7 pg Normal 26.7-34.0 [facility] Comment on above: Performed By: #### C BC ####[facility] [address] [place], [place] [address]DrGopal Fisher MCHC (RBC) [Mass/Vol] 33.6 g/dL Normal 29.9-35.2 [facility] Comment on above: Performed By: #### C BC ####[facility] [address] [address]DrGopal Fisher MCV (RBC) [Entitic vol] 97.5 fL Normal 81.0-99.0 [facility] Comment on above: Performed By: #### C BC ####[facility] [address] [place], [place] [address]DrGopal Fisher MONO # 0.9 103/ul Critically high 0.3-0.8 [facility] Comment on above: Performed By: #### C BC ####[facility] [address] [place], [place] [address]DrGopal Fisher Monocytes/100 WBC (Bld) 8.1 % Normal 1.7-12.0 [facility] Comment on above: Performed By: #### C BC ####[facility] [address] [place], [place] [address]DrGopal Fisher NEUT # 7.3 103/ul Critically high 1.4-6.5 [facility] Comment on above: Performed By: #### C BC ####[facility] [address] [place], [place] [address]DrGopal Fisher Neutrophils/100 WBC (Bld) 65.0 % Normal 43.0-75.0 [facility] Comment on above: Performed By: #### C BC ####[facility] [address] [place], [place] [address]DrGopal Fisher Platelet mean volume (Bld) [Entitic vol] 10.0 fL Normal 9.5-13.5 [facility] Comment on above: Performed By: #### C BC ####[facility] [address] [place], [place] [address]DrGopal Fisher PLT 245 103/ul Normal 150-450 [facility] Comment on above: Performed By: #### C BC ####[facility] [address] [place], [place] [address]Dr. Keturah Fisher RBC 4.43 106/ul Normal 4.20-5.40 [facility] Comment on above: Performed By: #### C BC ####[facility] [address] [place], [place] [address]HeDr. Keturah Fisher WBC 11.2 103/ul Critically high 4.0-11.0 [facility] Comment on above: Performed By: #### C BC ####[facility] [address] [place], [place] [address]YwDr. Keturah Fisher LIPASEon 07-31-2021 Lipase [Catalytic activity/Vol] 439.0 U/L Critically high 73.0-393.0 [facility] Comment on above: Performed By: #### L IPA, CMP, CRP, NAT #### [facility] [address] [address] [address] Keturah Fisher PROF 14(COMP METB)on Albumin [Mass/Vol] 3.6 g/dL Normal 3.4-5.0 [facility] Comment on above: Performed By: #### L IPA, CMP, CRP, NAT #### [facility] [address] [address] [address] Keturah Fisher Albumin/Globulin [Mass ratio] 1.1 {ratio} Normal [facility] Comment on above: Performed By: #### L IPA, CMP, CRP, NAT #### [facility] [address] [address] [address] Keturah Fisher ALP [Catalytic activity/Vol] 119 U/L Critically high 46-116 [facility] Comment on above: Performed By: #### L IPA, CMP, CRP, NAT #### [facility] [address] [address] [address] Keturah Fisher ALT [Catalytic activity/Vol] 20 U/L Normal 14-59 [facility] Comment on above: Performed By: #### L IPA, CMP, CRP, NAT #### [facility] [address] [address] [address] Keturah Fisher Anion gap [Moles/Vol] 13.4 mmol/L Normal [facility] Comment on above: Performed By: #### L IPA, CMP, CRP, NAT #### [facility] [address] [address] [address] Keturah Fisher AST [Catalytic activity/Vol] 16 U/L Normal 15-37 [facility] Comment on above: Performed By: #### L IPA, CMP, CRP, NAT #### [facility] [address] [address] [address] Keturah Fisher Bilirubin [Mass/Vol] 0.1 mg/dL Critically low 0.2-1.0 [facility] Comment on above: Performed By: #### L IPA, CMP, CRP, NAT #### [facility] [address] [address] [address] Keturah Fisher Calcium [Mass/Vol] 8.9 mg/dL Normal 8.5-10.1 [facility] Comment on above: Performed By: #### L IPA, CMP, CRP, NAT #### [facility] [address] [address] [address] Keturah Fisher Chloride [Moles/Vol] 106 mmol/L Normal 98-107 [facility] Comment on above: Performed By: #### L IPA, CMP, CRP, NAT #### [facility] [address] [place] [address] Dr. Keturah Fisher CO2 [Moles/Vol] 25.4 mmol/L Normal 21.0-32.0 [facility] Comment on above: Performed By: #### L IPA, CMP, CRP, NAT #### [facility] [address] [address] [address] Keturah Fisher Creatinine [Mass/Vol] 0.73 mg/dL Normal 0.55-1.02 [facility] Comment on above: Performed By: #### L IPA, CMP, CRP, NAT #### [facility] [address] [place] [address] Dr. Keturah Fisher EGFR-AF [place]IZ[place] >60 Normal >=60 [facility] Comment on above: Performed By: #### L IPA, CMP, CRP, NAT #### [facility] [address] [place] [address] Dr. Keturah Fisher EGFR-NON AF [place]IZ[place] >60 Normal >=60 [facility] Comment on above: Performed By: #### L IPA, CMP, CRP, NAT #### [facility] [address] [address] [address] Keturah Fisher Globulin (S) [Mass/Vol] 3.2 g/dL Normal [facility] Comment on above: Performed By: #### L IPA, CMP, CRP, NAT #### [facility] [address] [address] [address] Keturah Fisher Glucose [Mass/Vol] 105 mg/dL Normal 74-106 [facility] Comment on above: Performed By: #### L IPA, CMP, CRP, NAT #### [facility] [address] [place] [address] Dr. Keturah Fisher Potassium [Moles/Vol] 3.8 mmol/L Normal 3.5-5.1 [facility] Comment on above: Performed By: #### L IPA, CMP, CRP, NAT #### [facility] [address] [place] [address] Dr. Keturah Fisher Protein [Mass/Vol] 6.8 g/dL Normal 6.4-8.2 [facility] Comment on above: Performed By: #### L IPA, CMP, CRP, NAT #### [facility] [address] [place] [address] Dr. Keturah Fisher Sodium [Moles/Vol] 141 mmol/L Normal 136-145 [facility] Comment on above: Performed By: #### L IPA, CMP, CRP, NAT #### [facility] [address] [place] [address] Dr. Keturah Fisher Urea nitrogen [Mass/Vol] 12.0 mg/dL Normal 7.0-18.0 [facility] Comment on above: Performed By: #### L IPA, CMP, CRP, NAT #### [facility] [address] [address] [address] Keturah Fisher Urea nitrogen/Creatinine [Mass ratio] 16.4 mg/mg Normal [facility] Comment on above: Performed By: #### L IPA, CMP, CRP, NAT #### [facility] [address] [address] [address] Keturah Fisher TROPONIN, HIGH SENSITIVITYon 07-31-2021 HSTROP 4.2 pg/mL Normal 4.0-51.3 [facility] Comment on above: Result Comment: CUT- OFF POINTS HAVE BEEN ESTABLISHED BASED ON THE FOURTH UNIVERSAL DEFINITIONS OF MYOCARDIAL INFARCTION. THE UPPER REFERENCE LIMIT (URL) OF TROPONIN, DEFINED THE 99TH PERCENTILE OF cTnI DISTRIBUTION IN A REFERENCE POPULATION, HAS BEEN CONFIRMED THE DECISION THRESHOLD FOR WA DIAGNOSIS. Performed By: #### L IPA, CMP, CRP, NAT #### [facility] [address] [address] [address] Keturah Fisher AMYLASEon 07-19-2021 Amylase [Catalytic activity/Vol] 198 U/L Critically high 25-115 [facility] Comment on above: Performed By: #### A MY, LIPA, CMP ####[facility] [address] [address]DrGopal Fisher CBC AUTO DIFFon 07-19-2021 BASO # 0.1 103/ul Normal 0.0-0.1 [facility] Comment on above: Performed By: #### C BC ####[facility] [address] [address]DrGopal Fisher Basophils/100 WBC (Bld) 0.7 % Normal 0.2-2.0 [facility] Comment on above: Performed By: #### C BC ####[facility] [address] [address]DrGopal Fisher EO # 0.1 103/ul Normal 0.0-0.7 [facility] Comment on above: Performed By: #### C BC ####[facility] [address] [address]DrGopal Fisher Eosinophils/100 WBC (Bld) 1.0 % Normal 0.9-7.0 [facility] Comment on above: Performed By: #### C BC ####[facility] [address] [address]DrGopal Fisher Erythrocyte distribution width (RBC) [Ratio] 12.5 % Normal 11.0-15.0 [facility] Comment on above: Performed By: #### C BC ####[facility] [address] [address]Dr. Keturah Fisher Hematocrit (Bld) [Volume fraction] 42.4 % Normal 36.0-48.0 [facility] Comment on above: Performed By: #### C BC ####[facility] [address] [place], [place] [address]Dr. Keturah Fisher Hemoglobin (Bld) [Mass/Vol] 14.2 g/dL Normal 12.0-16.0 [facility] Comment on above: Performed By: #### C BC ####[facility] [address] [place], [place] [address]Dr. Keturah Fisher IG # 0.03 10e3/ul Normal 0.00-0.03 [facility] Comment on above: Performed By: #### C BC ####[facility] [address] [place], [place] [address]Dr. Keturah Fisher IG % 0.3 % Normal 0.0-0.5 [facility] Comment on above: Performed By: #### C BC ####[facility] [address] [place], [place] [address]Dr. Keturah Fisher LYMPH # 3.0 103/ul Normal 1.2-3.8 [facility] Comment on above: Performed By: #### C BC ####[facility] [address] [place], [place] [address]Dr. Keturah Fisher Lymphocytes/100 WBC (Bld) 29.5 % Normal 20.5-60.0 [facility] Comment on above: Performed By: #### C BC ####[facility] [address] [place], [place] [address]Dr. Keturah Phillip MANUAL DIFF REQ NO Normal [facility] Comment on above: Performed By: #### C BC ####[facility] [address] [place], [place] [address]Dr. Keturah Phillip MCH (RBC) [Entitic mass] 32.8 pg Normal 26.7-34.0 [facility] Comment on above: Performed By: #### C BC ####[facility] [address] [address]DrGopal Fisher MCHC (RBC) [Mass/Vol] 33.5 g/dL Normal 29.9-35.2 [facility] Comment on above: Performed By: #### C BC ####[facility] [address] [place], [place] [address]DrGopal Fisher MCV (RBC) [Entitic vol] 97.9 fL Normal 81.0-99.0 [facility] Comment on above: Performed By: #### C BC ####[facility] [address] [place], [place] [address]DrGopal Fisher MONO # 1.0 103/ul Critically high 0.3-0.8 [facility] Comment on above: Performed By: #### C BC ####[facility] [address] [place], [place] [address]DrGopal Fisher Monocytes/100 WBC (Bld) 9.3 % Normal 1.7-12.0 [facility] Comment on above: Performed By: #### C BC ####[facility] [address] [place], [place] [address]DrGopal Fisher NEUT # 6.1 103/ul Normal 1.4-6.5 [facility] Comment on above: Performed By: #### C BC ####[facility] [address] [place], [place] [address]DrGopal Fisher Neutrophils/100 WBC (Bld) 59.2 % Normal 43.0-75.0 [facility] Comment on above: Performed By: #### C BC ####[facility] [address] [place], [place] [address]DrGopal Fisher Platelet mean volume (Bld) [Entitic vol] 9.8 fL Normal 9.5-13.5 [facility] Comment on above: Performed By: #### C BC ####[facility] [address] [place], [place] [address]Dr. Keturah Fisher PLT 249 103/ul Normal 150-450 [facility] Comment on above: Performed By: #### C BC ####[facility] [address] [address]Dr. Keturah Fisher RBC 4.33 106/ul Normal 4.20-5.40 [facility] Comment on above: Performed By: #### C BC ####[facility] [address] [address]Dr. Keturah Fisher WBC 10.2 103/ul Normal 4.0-11.0 [facility] Comment on above: Performed By: #### C BC ####[facility] [address] [address]Dr. Keturah Phillip LIPASEon 07-19-2021 Lipase [Catalytic activity/Vol] 554.0 U/L Critically high 73.0-393.0 [facility] Comment on above: Performed By: #### A MY, LIPA, CMP ####[facility] U[address]kb[address] [place], [place] [address]Dr. Keturah Fisher PROF 14(COMP METB)on 022 Albumin [Mass/Vol] 4.0 g/dL Normal 3.4-5.0 [facility] Comment on above: Performed By: #### A MY, LIPA, CMP ####[facility] [address] [place], [place] [address]Dr. Keturah Fisher Albumin/Globulin [Mass ratio] 1.1 {ratio} Normal [facility] Comment on above: Performed By: #### A MY, LIPA, CMP ####[facility] [address] [address]Dr. Keturah Fisher ALP [Catalytic activity/Vol] 141 U/L Critically high 46-116 [facility] Comment on above: Performed By: #### A MY, LIPA, CMP ####[facility] [address] [address]Dr. Keturah Fisher ALT [Catalytic activity/Vol] 21 U/L Normal 14-59 [facility] Comment on above: Performed By: #### A MY, LIPA, CMP ####[facility] [address] [address]Dr. Keturah Fisher Anion gap [Moles/Vol] 10.3 mmol/L Normal [facility] Comment on above: Performed By: #### A MY, LIPA, CMP ####[facility] [address] [address]Dr. Keturah Fisher AST [Catalytic activity/Vol] 22 U/L Normal 15-37 [facility] Comment on above: Performed By: #### A MY, LIPA, CMP ####[facility] [address] [address]Dr. Keturah Fisher Bilirubin [Mass/Vol] 0.3 mg/dL Normal 0.2-1.0 [facility] Comment on above: Performed By: #### A MY, LIPA, CMP ####[facility] [address] [place], [place] [address]Dr. Keturah Fisher Calcium [Mass/Vol] 9.9 mg/dL Normal 8.5-10.1 [facility] Comment on above: Performed By: #### A MY, LIPA, CMP ####[facility] [address] [place], [place] [address]Dr. Keturah Fisher Chloride [Moles/Vol] 103 mmol/L Normal 98-107 [facility] Comment on above: Performed By: #### A MY, LIPA, CMP ####[facility] [address] [place], [place] [address]Dr. Keturah Fisher CO2 [Moles/Vol] 27.6 mmol/L Normal 21.0-32.0 [facility] Comment on above: Performed By: #### A MY, LIPA, CMP ####[facility] [address] [place], [place] [address]Dr. Keturah Fisher Creatinine [Mass/Vol] 0.93 mg/dL Normal 0.55-1.02 [facility] Comment on above: Performed By: #### A MY, LIPA, CMP ####[facility] [address] [place], [place] [address]Dr. Keturah Fisher EGFR-AF CITIZ[place] >60 Normal >=60 [facility] Comment on above: Performed By: #### A ORB BERNSTEIN, CMP ####[facility] [address] [address]Dr. Keturah Fisher EGFR-NON AF CITIZEN OF [place] >60 Normal >=60 [facility] Comment on above: Performed By: #### A ROB BERNSTEIN, CMP ####[facility] [address] [address]Dr. Keturah Fisher Globulin (S) [Mass/Vol] 3.5 g/dL Normal [facility] Comment on above: Performed By: #### A ROB BERNSTEIN, CMP ####[facility] [address] [place], [place] [address]Dr. Keturah Fisher Glucose [Mass/Vol] 99 mg/dL Normal 74-106 [facility] Comment on above: Performed By: #### A ROB BERNSTEIN, CMP ####[facility] [address] [place], [place] [address]Dr. Keturah Fisher Potassium [Moles/Vol] 3.9 mmol/L Normal 3.5-5.1 [facility] Comment on above: Performed By: #### A ROB BERNSTEIN, CMP ####[facility] [address] [place], [place] [address]Dr. Keturah Fisher Protein [Mass/Vol] 7.5 g/dL Normal 6.4-8.2 [facility] Comment on above: Performed By: #### A ROB BERNSTEIN, CMP ####[facility] [address] [address]Dr. Keturah Fisher Sodium [Moles/Vol] 137 mmol/L Normal 136-145 [facility] Comment on above: Performed By: #### A ROB BERNSTEIN, CMP ####[facility] [address] [address]Dr. Keturah Fisher Urea nitrogen [Mass/Vol] 9.0 mg/dL Normal 7.0-18.0 [facility] Comment on above: Performed By: #### A ROB BERNSTEIN, CMP ####[facility] [address] [place], [place] [address]Yf. Keturah Fisher Urea nitrogen/Creatinine [Mass ratio] 9.7 mg/mg Normal [facility] Comment on above: Performed By: #### A ROB BERNSTEIN, CMP ####[facility] [address] [place], [place] [address]Rz. Keturah Fisher XR ABD FLAT UP_PA Jorje 07-19 XR ABD FLAT UP_PA CH EXAM: XR ABD FLAT UP_PA CH COMPARISON: 04/29/2020, 06/04/2021 CLINICAL INDICATION: Acute upper abdominal pain. FINDINGS: The cardiomediastinal silhouette is within normal limits. No focal consolidation. No pleural effusion. No pneumothorax. No dilated loops of bowel to suggest obstruction. No free air under the diaphragm on the upright chest image. Prior cholecystectomy. Hepatomegaly. No focal pathologic calcifications. No evidence of acute osseous abnormality. IMPRESSION: No acute findings. Electronically authenticated by: LYNNE PERDOMO Date: 2021-07-19 16:57 Normal [facility] COVID Quick Testingon 2021 Result Positive 66. com Other ANES Marcial 11-13-2020 ANES POST HNO ID: [id number] Author: Ion Avila MD Service: Anesthesiology Author Type: Anesthesiologist Type: Anesthesia PostOp Filed: 11/13/2020 12:39 PM Note Text: POST ANESTHESIA EVALUATION NOTE SERVICE DATE: 11/13/2020 SERVICE TIME: 12:39p : 1970 Vitals: 11/13/20 1035 11/13/20 1212 Temp: 36.3 ?C (97.3 ?F) 36 ?C (96.8 ?F) 11/13/20103411/13/20 1212 11/13/20 1220 BP: 117/65 115/70 120/73 11/13/20103411/13/20 1212 11/13/20 1220 Pulse: 91 87 82 11/13/20 10311/13/20 1212 11/13/20 1220 Resp: 16 18 18 11/13/20103411/13/20 1212 11/13/20 1220 SpO2: 98% 100% 100% Validated Vital Signs: Yes POST ANES STATUS: No apparent anesthetic complications. The patient is appropriately hydrated with stable respiratory and cardiovascular status. Patient has safe and adequate airway control. The patient has appropriate pain relief and no significant post operative nausea or vomiting. The patient has achieved baseline mental status. Intra-Operative Events: No Significant Anesthesia Events Further assessment by Anesthesia Service: None Other Remarks: SIGNATURE: Ion Avila MD PATIENT NAME: Chioma Rainey DATE: November 13, 2020 TIME: 12:38 PM PAGER/CONTACT #: [phone] [facility] NURSING PROGon 11-13-2020 NURSING PROG HNO ID: [id number] Author: Viky Nguyen RN Service: Nursing Author Type: Registered Nurse Type: Nursing Progress Note Filed: 11/13/2020 12:58 PM Note Text: AMBULATORY PATIENT EDUCATION NOTE TOPIC: GI PROCEDURES: Endoscopic Ultrasound (EUS) with or without Fine Needle Aspiration (FNA) READINESS TO LEARN INSTRUCTION PROVIDED TO: Patient and friend/other COGNITIVE ABILITY: Alert and oriented PTED MOTIVATION TO LEARN: Interested FAMILY SUPPORT: High - Very involved in pt care IPATIENT LEARNS BEST BY: Multiple Methods FACTORS AFFECTING LEARNING: None PHYSICAL LIMITATIONS AFFECTING LEARNING: None LEARNING RESPONSE METHOD OF INSTRUCTION: Individual instruction PATIENT / FAMILY RESPONSE: Verbalizes understanding of: WORSENING CONDITION-Signs and symptoms of a worsening condition that warrant a call to the physician FOLLOW-UP PLAN: Patient instructed to call with any further issues SUPPLEMENTAL MATERIAL: Procedure Discharge Instructions REFERRAL (RECOMMENDATION): None Electronically Signed By: Yaquelin Nguyen RN [facility] NURSING PROG HNO ID: [id number] Author: Landy Smith RN Service: Nursing Author Type: Registered Nurse Type: Nursing Progress Note Filed: 11/13/2020 10:40 AM Note Text: PRE OP LEARNING ASSESSMENT PROCEDURE/SURGERY: GI PROCEDURES: EGD and EUS READINESS TO LEARN COGNITIVE ABILITY: Alert and oriented MOTIVATION TO LEARN: Eager FAMILY SUPPORT: High - Very involved in pt care PATIENT LEARNS BEST BY: Individual Instruction FACTORS AFFECTING LEARNING: None PHYSICAL LIMITATIONS AFFECTING LEARNING: None Electronically Signed By: Landy Smith RN In Department: GASTROENTEROLOGY [facility] 11-07-2020 CNPN Telephone ([facility]) CHIOMA RAINEY ([id number]) 1970 F Date Time Provider Department 11/07/20 NASREEN GORMAN [facility] During your visit today, we recorded the following information about you: Nasreen Gorman RN 11/07/2020 4:49 PM Signed GI Pre-Procedure Spoke with patient: Yes Confirmed date scheduled and patient report time: Yes Procedure Planned:Endoscopic Ultrasound (EUS) with or without Fine Needle Aspiration (FNA) Esophagogastroduodenos copy(EGD) with or without biopies based on clinical findings, removal of polyps or lesions Is the patient on blood thinners?no Procedure Instructions given to patient: Yes, and they verbalized their understanding of instructions given Patient instructed to take prescribed preparation prior to procedure:Yes, and they verbalized their understanding of instructions given Patient instructed to have family/friend present for procedure? transport home:Patient/patient provider service representative was told that if they do not have a responsible adult accompany them to their procedure; and remain in the endoscopy area until they are discharged; that their procedure cannot be done with sedation or anesthesia and may be cancelled. and They verbalized their understanding and agree to have a responsible adult accompany the patient to their procedure and remain in the endoscopy area. Any barriers to Patient learning: Patient/Patient Educational Assistant responded appropriately on phone. Type of instruction given: Verbal by telephone contact. Nasreen Gorman RN Allergies As of Date: 11/07/2020 Noted Allergy Reaction HALDOL (HALOPERIDOL LACTATE) 06/18/2016 14 - Other: See Comments IBUPROFEN 08/22/2011 14 - Other: See Comments MORPHINE 05/09/2019 4 - Hives PENICILLINS 08/22/2011 14 - Other: See Comments TRAMADOL 06/18/2016 14 - Other: See Comments Date Reviewed: 05/09/2019 Reviewed by: Sue Young - Fully Assessed Reason for Visit: Appointment Confirmation [[id number]] Prescriptions as of 11/07/2020 - promethazine HCl (PHENERGAN ORAL) Take by mouth. - oxyCODONE-acetaminophe n (PERCOCET) 5-325 mg tablet Take 1 tablet by mouth every 8 hours as needed. - mirtazapine (REMERON) 15 mg tablet Take 15 mg by mouth daily at bedtime. 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 Multiplanar reformatted images are provided for review. Dose modulation, iterative reconstruction, and/or weight based adjustment of the mA/kV was utilized to reduce the radiation dose to as low as reasonably achievable. COMPARISON: None HISTORY: ORDERING SYSTEM PROVIDED HISTORY: Abd pain TECHNOLOGIST PROVIDED HISTORY: Abd pain FINDINGS: Lower Chest: The lung bases are clear. There are no pleural or pericardial effusions evident. Organs: Cholecystectomy clips are present. The liver, spleen, adrenal glands and kidneys are normal in appearance. There is mild dilatation of the pancreatic duct. The pancreas is otherwise unremarkable. There is no intrahepatic biliary ductal dilatation. GI/Bowel: There are no abnormally dilated loops of large or small bowel present. There is no mesenteric inflammatory stranding present. The appendix is normal. Pelvis: The urinary bladder is normal. There is no free fluid or pelvic mass. Peritoneum/Retroperito neum: There is no pathologically enlarged lymphadenopathy present. Bones/Soft Tissues: No lytic or blastic osseous lesions are identified. IMPRESSION: 1. No acute findings within the abdomen or pelvis. 2. Normal appendix. 3. Mild dilatation the pancreatic duct and dilatation of the common bile duct which is nonspecific. Correlation with biliary function studies is suggested. Consider MRI of the abdomen and MRCP to exclude an ampullary mass. Interpreted by: Jhoan Beatty MD Signed by: Jhoan Beatty MD 03/28/20 Final result Normal [facility] Amylaseon 03-26-2020 Amylase [Catalytic activity/Vol] 185 U/L High 28-100 [facility] Comment on above: Performed By: #### R EJEC, NAT, LIP, CMPX #### [facility] [address] [place] [address] Senior Java Software Engineer: Ion Jasso MD Amylase [Catalytic activity/Vol] 185 U/L High 28 - 100 U/L [place], [place] CBC Auto Differentialon 03-09 Basophils (Bld) [#/Vol] 0.06 10*3/uL [place] Basophils/100 WBC (Bld) 1 % 0 - 2 % [place] Differential Type NOT REPORTED [place] Eosinophils (Bld) [#/Vol] 0.12 10*3/uL [place] Eosinophils/100 WBC (Bld) 1 % 1 - 4 % [place] Erythrocyte distribution width (RBC) [Ratio] 12.4 % 11.8 - 14.4 % [place] Hematocrit (Bld) [Volume fraction] 40.6 % 36.3 - 47.1 % [place] Hemoglobin (Bld) [Mass/Vol] 13.7 g/dL 11.9 - 15.1 g/dL [place] Immature granulocytes (Bld) [#/Vol] 0 % 0 [place] Immature granulocytes (Bld) [#/Vol] 10*3/uL [place] Lymphocytes (Bld) [#/Vol] 2.62 10*3/uL [place] Lymphocytes/100 WBC (Bld) 27 % 24 - 43 % [place] MCH (RBC) [Entitic mass] 33.4 pg 25.2 - 33.5 pg [place] MCHC (RBC) [Mass/Vol] 33.7 g/dL 28.4 - 34.8 g/dL [place] MCV (RBC) [Entitic vol] 99.0 fL 82.6 - 102.9 fL [place] Monocytes (Bld) [#/Vol] 0.78 10*3/uL [place] Monocytes/100 WBC (Bld) 8 % 3 - 12 % [place] Platelet mean volume (Bld) [Entitic vol] 9.4 fL 8.1 - 13.5 fL [place] Platelets (Bld) [#/Vol] 235 10*3/uL [place] Platelets (Bld) [#/Vol] NOT REPORTED [place] RBC (Bld) [#/Vol] 4.10 10*6/uL 3.95 - 5.1 1 m/uL [place] RBC morphology finding Nom (Bld) NOT REPORTED [place] Segmented neutrophils/100 WBC (Bld) 63 % 36 - 65 % [place] Segs Absolute 5.96 [place], [place] WBC (Bld) [#/Vol] 9.6 10*3/uL [place] WBC (Bld) [#/Vol] 0.0 10*3/uL 0.0 per 10 0 WBC [place] WBC Morphology NOT REPORTED [place], [place] CBC with Diffon 03-26-2020 Abs. Basophil 0.06 k/uL Normal 0.00-0.20 [facility] Comment on above: Performed By: #### C DP, LIP #### [facility] [address] [address] Senior Java Software Engineer: Zafar Castillo MD Abs.Imm.Granulocyte <0.03 Normal 0.00-0.30 [facility] Comment on above: Performed By: #### C DP, LIP #### [facility] [address] [place], [place] [address] Senior Java Software Engineer: Zafar Castillo MD Abs.Neutrophil (Seg) 5.96 k/uL Normal 1.50-8.10 [facility] Comment on above: Performed By: #### C DP, LIP #### [address] [place], [place] [address] Senior Java Software Engineer: Zafar Castillo MD Basophils/100 WBC (Bld) 1 % Normal 0-2 [facility] Comment on above: Performed By: #### C DP, LIP #### [address] [place], [facility] Senior Java Software Engineer: Zafar Castillo MD Eosinophils (Bld) [#/Vol] 0.12 10*3/uL Normal 0.00-0.44 [facility] Comment on above: Performed By: #### C DP, LIP #### [address] [place], [facility] Senior Java Software Engineer: Zafar Castillo MD Eosinophils/100 WBC (Bld) 1 % Normal 1-4 [facility] Comment on above: Performed By: #### C DP, LIP #### [address] [place], [facility] Senior Java Software Engineer: Zafar Castillo MD Erythrocyte distribution width (RBC) [Ratio] 12.4 % Normal 11.8-14.4 [facility] Comment on above: Performed By: #### C DP, LIP #### [address] [place], [facility] Senior Java Software Engineer: Zafar Castillo MD Hematocrit (Bld) [Volume fraction] 40.6 % Normal 36.3-47.1 [facility] Comment on above: Performed By: #### C DP, LIP #### [address] [place], [facility] Senior Java Software Engineer: Zafar Castillo MD Hemoglobin (Bld) [Mass/Vol] 13.7 g/dL Normal 11.9-15.1 [facility] Comment on above: Performed By: #### C DP, LIP #### [facility] [address] [place], [place] [address] Senior Java Software Engineer: Zafar Castillo MD Immature granulocytes (Bld) [#/Vol] 0 % Normal 0 [facility] Comment on above: Performed By: #### C DP, LIP #### [facility] [address] [place], [place] [address] Senior Java Software Engineer: Zafar Castillo MD Lymphocytes (Bld) [#/Vol] 2.62 10*3/uL Normal 1.10-3.70 [facility] Comment on above: Performed By: #### C DP, LIP #### [facility] [address] [place] [address] Senior Java Software Engineer: Zafar Castillo MD Lymphocytes/100 WBC (Bld) 27 % Normal 24-43 [facility] Comment on above: Performed By: #### C DP, LIP #### [facility] [address] [place], [facility] Senior Java Software Engineer: Zafar Castillo MD MCH (RBC) [Entitic mass] 33.4 pg Normal 25.2-33.5 [facility] [facility] Comment on above: Performed By: #### C DP, LIP #### [address] [place], [place] [address] Senior Java Software Engineer: Zafar Castillo MD MCHC (RBC) [Mass/Vol] 33.7 g/dL Normal 28.4-34.8 [facility] Comment on above: Performed By: #### C DP, LIP #### [facility] [address] [place], [facility]83 Senior Java Software Engineer: Zafar Castillo MD MCV (RBC) [Entitic vol] 99.0 fL Normal 82.6-102.9 [facility] Comment on above: Performed By: #### C DP, LIP #### [facility] [address] [place], [place] [id number] Senior Java Software Engineer: Zafar Castillo MD Monocytes (Bld) [#/Vol] 0.78 10*3/uL Normal 0.10-1.20 [facility] Comment on above: Performed By: #### C DP, LIP #### [facility] [address] [place], [place] [id number] Senior Java Software Engineer: Zafar Castillo MD Monocytes/100 WBC (Bld) 8 % Normal 3-12 [facility] Comment on above: Performed By: #### C DP, LIP #### [facility] [address] [place], [facility]83 Senior Java Software Engineer: Zafar Castillo MD Neutrophil (Seg) 63 % Normal 36-65 [facility] Comment on above: Performed By: #### C DP, LIP #### [facility] [address] [place], [place] [id number] Senior Java Software Engineer: Zafar Castillo MD NRBC Automated 0.0 per 100 WBC Normal 0.0 [facility] Comment on above: Performed By: #### C DP, LIP #### [facility] [address] [place], [place] [id number] Senior Java Software Engineer: Zafar Castillo MD Platelet mean volume (Bld) [Entitic vol] 9.4 fL Normal 8.1-13.5 [facility] Comment on above: Performed By: #### C DP, LIP #### [facility] [address] [place] [address] Senior Java Software Engineer: Zafar Castillo MD Platelets (Bld) [#/Vol] 235 10*3/uL Normal 138-453 [facility] Comment on above: Performed By: #### C DP, LIP #### [facility] [address] [place], [place] [id number] Senior Java Software Engineer: Zafar Castillo MD RBC (Bld) [#/Vol] 4.10 10*6/uL Normal 3.95-5.11 [facility] Comment on above: Performed By: #### C DP, LIP #### [facility] [address] [place], [place] [id number] Senior Java Software Engineer: Zafar Castillo MD WBC (Bld) [#/Vol] 9.6 10*3/uL Normal 3.5-11.3 [facility] Comment on above: Performed By: #### C DP, LIP #### [facility] [address] [place], [place] [phone] Senior Java Software Engineer: Zafar Castillo MD Auto Diff Performed NOT REPORTED Normal [facility] Comment on above: Performed By: #### C DP, LIP #### [facility] [address] [place] [address] Senior Java Software Engineer: Zafar Castillo MD Platelets (Bld) [#/Vol] NOT REPORTED Normal [facility] Comment on above: Performed By: #### C DP, LIP #### [facility] [address] [place], [place] [id number] Senior Java Software Engineer: Zafar Castillo MD RBC morphology finding Nom (Bld) NOT REPORTED Normal [facility] Comment on above: Performed By: #### C DP, LIP #### [facility] [address] [place], [place] [phone] Senior Java Software Engineer: Zafar Castillo MD WBC Morphology NOT REPORTED Normal [facility] Comment on above: Performed By: #### C DP, LIP #### [facility] [address] [place], [place] [id number] Senior Java Software Engineer: Zafar Castillo MD Comp Metabolic Pr/rfx MGon 0 03-26-2020 (cont.) Normal [facility] Comment on above: Result Comment: Aver age GFR for 50-59 years old: 93 mL/min/1.73sq m Chronic Kidney Disease: <60 mL/min/1.73sq m Kidney failure: <15 mL/min/1.73sq m eGFR calculated using average adult body mass. Additional eGFR calculator available at: http://www.[employer]/multiple_crcl_2012.htm Performed By: #### R EJEC, NAT, LIP, CMPX #### [address] [place], [place] [phone] Senior Java Software Engineer: Ion Jasso MD Albumin [Mass/Vol] 4.3 g/dL Normal 3.5-5.2 [facility] Comment on above: Performed By: #### R EJEC, NAT, LIP, CMPX #### [address] [place], [place] 786[address]83 Senior Java Software Engineer: Ion Jasso MD Albumin/Globulin [Mass ratio] 1.7 {ratio} Normal 1.0-2.5 [facility] Comment on above: Performed By: #### R EJEC, NAT, LIP, CMPX #### [address] [place], [place] [id number] Senior Java Software Engineer: Ion Jasso MD Alkaline Phos 117 U/L High 35-104 [facility] Comment on above: Performed By: #### R EJEC, NAT, LIP, CMPX #### [address] [place] [address] Senior Java Software Engineer: Ion Jasso MD ALT [Catalytic activity/Vol] 11 U/L Normal 5-33 [facility] Comment on above: Performed By: #### R EJEC, NAT, LIP, CMPX #### [address] [place], [place] [phone] Senior Java Software Engineer: Ion Jasso MD Anion gap [Moles/Vol] 9 mmol/L Normal 9-17 [facility] Comment on above: Performed By: #### R EJEC, NAT, LIP, CMPX #### [facility] [address] [place] [address] Dr. [place], [place] [phone] Senior Java Software Engineer: Ion Jasso MD AST [Catalytic activity/Vol] 18 U/L Normal <32 [facility] Comment on above: Performed By: #### R EJEC, NAT, LIP, CMPX #### [facility] [address] [place], [place] [phone] Senior Java Software Engineer: Ion Jasso MD Bilirubin Ql (U) 0.15 mg/dL Low 0.3-1.2 [facility] Comment on above: Performed By: #### R EJEC, NAT, LIP, CMPX #### [facility] [address] [place] [address] Dr. [place], [place] [phone] Senior Java Software Engineer: Ion Jasso MD BUN/CRE Ratio 12 Normal 9-20 [facility] Comment on above: Performed By: #### R EJEC, NAT, LIP, CMPX #### [facility] [address] [place] [address] Dr. [place], [place] [phone] Senior Java Software Engineer: Ion Jasso MD Calcium [Mass/Vol] 9.7 mg/dL Normal 8.6-10.4 [facility] Comment on above: Performed By: #### R EJEC, NAT, LIP, CMPX #### [facility] [address] [place] [address] Dr. [place], [place] [phone] Senior Java Software Engineer: Ion Jasso MD Chloride [Moles/Vol] 102 mmol/L Normal 98-107 [facility] Comment on above: Performed By: #### R EJEC, NAT, LIP, CMPX #### [facility] [address] [place] [address] Dr. [place], [place] [phone] Senior Java Software Engineer: Ion Jasso MD CO2 [Moles/Vol] 25 mmol/L Normal 20-31 [facility] Comment on above: Performed By: #### R EJEC, NAT, LIP, CMPX #### [facility] [address] [place] [address] Senior Java Software Engineer: Ion Jasso MD Creatinine [Mass/Vol] 0.74 mg/dL Normal 0.50-0.90 [facility] Comment on above: Performed By: #### R EJEC, NAT, LIP, CMPX #### [facility] [address] [place] [address] [place] [address] Senior Java Software Engineer: Ion Jasso MD GFR, Amer >60 Normal >60 [facility] Comment on above: Performed By: #### R EJEC, NAT, LIP, CMPX #### [facility] [address] [place] [address] Dr. [place], [place] [phone] Senior Java Software Engineer: Ion Jasso MD GFR,non Amer >60 Normal >60 [facility] Comment on above: Performed By: #### R EJEC, NAT, LIP, CMPX #### [address] [place], [place] 3441183 Senior Java Software Engineer: Ion Jasso MD Glucose [Mass/Vol] 94 mg/dL Normal 70-99 [facility] Comment on above: Performed By: #### R ANGELINE, NAT, LIP, CMPX #### [address] [place], [place] [phone] Senior Java Software Engineer: Ion Jasso MD Potassium [Moles/Vol] 4.2 mmol/L Normal 3.7-5.3 [facility] Comment on above: Performed By: #### R EJEC, NAT, LIP, CMPX #### [facility] [address] [place] [address] Dr. [place], [place] [phone] Senior Java Software Engineer: Ion Jasso MD Protein [Mass/Vol] 6.8 g/dL Normal 6.4-8.3 [facility] Comment on above: Performed By: #### R EJEC, NAT, LIP, CMPX #### [address] [place] [address] Senior Java Software Engineer: Ion Jasso MD Sodium [Moles/Vol] 136 mmol/L Normal 135-144 [facility] Comment on above: Performed By: #### R EJEC, NAT, LIP, CMPX #### [facility] [address] [place] [address] Senior Java Software Engineer: Ion Jasso MD Staging: Normal [facility] Comment on above: Result Comment: Stag e 1: Some kidney damage normal GFR Stage 2: Mild kidney damage GFR 60-89 Stage 3: Moderate kidney damage GFR 30-59 Stage 4: Severe kidney damage GFR 15-29 Stage 5: Severe kidney damage GFR <15 ESRD - chronic treatment by dialysis or transplant Performed By: #### R EJEC, NAT, LIP, CMPX #### [facility] [address] [place] [address] Senior Java Software Engineer: Ion Jasso MD Urea nitrogen [Mass/Vol] 9 mg/dL Normal 6-20 [facility] Comment on above: Performed By: #### R EJEC, NAT, LIP, CMPX #### [facility] [address] [place] [address] Senior Java Software Engineer: Ion Jasso MD Comprehensive Metabolic Pane l w/ Reflex to MGon 03-26-2020 Albumin [Mass/Vol] 4.3 g/dL 3.5 - 5.2 g/dL [place] Albumin/Globulin [Mass ratio] 1.7 {ratio} [place] ALP [Catalytic activity/Vol] 117 U/L High 35 - 104 U/L [place] ALT [Catalytic activity/Vol] 11 U/L 5 - 33 U/L [place] Anion gap [Moles/Vol] 9 mmol/L 9 - 17 mmol/L [place] AST [Catalytic activity/Vol] 18 U/L <32 [place] Bilirubin Ql (U) 0.15 mg/dL Low 0.3 - 1.2 mg/dL [place] Bun/Cre Ratio 12 [place] Calcium [Mass/Vol] 9.7 mg/dL 8.6 - 10. 4 mg/dL [place] Chloride [Moles/Vol] 102 mmol/L 98 - 10 7 mmol/L [place] CO2 [Moles/Vol] 25 mmol/L 20 - 31 mmol/L [place] Creatinine [Mass/Vol] 0.74 mg/dL 0.5 - 0.9 mg/dL [place] GFR >60 >60 mL/min [place] GFR Non- >60 >60 mL/min [place] Glucose [Mass/Vol] 94 mg/dL 70 - 99 mg/dL [place] Potassium [Moles/Vol] 4.2 mmol/L 3.7 - 5.3 mmol/L [place] Protein [Mass/Vol] 6.8 g/dL 6.4 - 8.3 g/dL [place] Sodium [Moles/Vol] 136 mmol/L 135 - 144 mmol/L [place] Urea nitrogen [Mass/Vol] 9 mg/dL 6 - 20 mg/dL [place] Lactic Acidon 03-26-2020 Lactate [Moles/Vol] 1.3 mmol/L Normal 0.5-2.2 [facility] Comment on above: Performed By: #### C DP, LIP #### [facility] [address] [place] [address] Senior Java Software Engineer: Zafar Castillo MD Lactate [Moles/Vol] 1.3 mmol/L 0.5 - 2. 2 mmol/L [place] Lipaseon 03-26-2020 Lipase [Catalytic activity/Vol] 225 U/L Critically high 13-60 [facility] Comment on above: Performed By: #### R EJEC, NAT, LIP, CMPX #### [facility] [address] [place] [address] Senior Java Software Engineer: Ion Jasso MD Interpretation and review of laboratory results Abnormal [place] Lipase [Catalytic activity/Vol] 225 U/L Critically high 13 - 60 U/L [place] Metabolic Panelon 03-26-2020 GFR/1.73 sq M predicted among non-blacks MDRD (S/P/Bld) [Vol rate/Area] [place] Comment on above: Average GFR for 50-5 9 years old: 93 mL/min/1.73sq m Chronic Kidney Disease: <60 mL/min/1.73sq m Kidney failure: <15 mL/min/1.73sq m eGFR calculated using average adult body mass. Additional eGFR calculator available at: http://www.[employer]/multiple_crcl_2012.htm Stage 1: Some kidney damage normal GFR Stage 2: Mild kidney damage GFR 60-89 Stage 3: Moderate kidney damage GFR 30-59 Stage 4: Severe kidney damage GFR 15-29 Stage 5: Severe kidney damage GFR <15 ESRD - chronic treatment by dialysis or transplant Otheron 03-26-2020 Interpretation and review of laboratory results Abnormal [place] SPECIMEN REJECTIONon 021 Ordered Test CDP [place], [place] Reason for Rejection Unable to perform testing: Specimen clotted. [place] Specimen source Nom (Unsp spec) .BLOOD [place] - NOT REPORTED [place] Specimen Rejectionon 021 Reason for rejection Unable to perform testing: Specimen clotted. Normal [facility] Comment on above: Performed By: #### R EJEC, NAT, LIP, CMPX #### [facility] [address] [place] [address] Senior Java Software Engineer: Ion Jasso MD Source of sample .BLOOD Normal [facility] Comment on above: Performed By: #### R EJEC, NAT, LIP, CMPX #### [facility] [address] [place] [address] Senior Java Software Engineer: Ion Jasso MD Test ordered CDP [facility] Comment on above: Performed By: #### R EJEC, NAT, LIP, CMPX #### [facility] [address] [place] [address] Senior Java Software Engineer: Ion Jasso MD ----- NOT REPORTED Normal [facility] Comment on above: Performed By: #### R EJEC, NAT, LIP, CMPX #### [facility] [address] [place] [address] Senior Java Software Engineer: Ion Jasso MD Urinalysis, Routineon 2020 Acetoacetic Acid,Ur Negative Normal [facility] Comment on above: Performed By: #### C DP, LIP #### [facility] [address] [place] [address] Senior Java Software Engineer: Zafar Castillo MD Bilirubin, SemiQt,Ur Negative Normal [facility] Comment on above: Performed By: #### C DP, LIP #### [facility] [address] [place] [address] Senior Java Software Engineer: Zafar Castillo MD Color (U) YELLOW Normal [facility] Comment on above: Performed By: #### C DP, LIP #### [facility] [address] [place] [address] Senior Java Software Engineer: Zafar Castillo MD Glucose Ql (U) Negative Normal [facility] Comment on above: Performed By: #### C DP, LIP #### [facility] [address] [place] [address] Senior Java Software Engineer: Zafar Castillo MD Hemoglobin, Ur Negative Normal [facility] Comment on above: Performed By: #### C DP, LIP #### [facility] [address] [place] [address] Senior Java Software Engineer: Zafar Castillo MD Leukocyte esterase Test strip Ql (U) Negative Normal [facility] Comment on above: Performed By: #### C DP, LIP #### [facility] [address] [place] [address] Senior Java Software Engineer: Zafar Castillo MD Nitrite,Ur Negative Normal [facility] Comment on above: Performed By: #### C DP, LIP #### [facility] [address] [place], [place] 18[address]83 Senior Java Software Engineer: Zafar Castillo MD pH (U) 5.5 [pH] Normal 5.0-9.0 [facility] Comment on above: Performed By: #### C DP, LIP #### [facility] [address] [place], [place] 8[address]83 Senior Java Software Engineer: Zafar Castillo MD Protein Ql (U) Negative Normal NEG [facility] Comment on above: Performed By: #### C DP, LIP #### [facility] [address] [place], [place] 6477383 Senior Java Software Engineer: Zafar Castillo MD Specific gravity (U) [Rel density] 1.010 Normal 1.010-1.020 [facility] Comment on above: Performed By: #### C DP, LIP #### [facility] [address] [place], [place] 9[address]83 Senior Java Software Engineer: Zafar Castillo MD Turbidity CLEAR Normal CLEAR [facility] Comment on above: Performed By: #### C DP, LIP #### [facility] [address] [place], [place] 1534683 Senior Java Software Engineer: Zafar Castillo MD Urobilinogen,Ur Normal Normal NORM [facility] Comment on above: Performed By: #### C DP, LIP #### [facility] [address] [place], [place] 9388183 Senior Java Software Engineer: Zafar Castillo MD Comment NOT REPORTED Normal [facility] Comment on above: Performed By: #### C DP, LIP #### [facility] [address] [place] [address] Senior Java Software Engineer: Zafar Castillo MD Urinalysis, reflex to micros copicon 03-26-2020 Bilirubin Urine Negative NEGATIVE [facility] [place] Color, UA YELLOW YELLOW [facility] [place] Glucose, Ur Negative NEGATIVE [place] Ketones Ql (U) Negative NEGATIVE [place] Leukocyte esterase Test strip Ql (U) Negative NEGATIVE [place] Nitrite, Urine Negative NEGATIVE [place] pH, UA 5.5 [place] Protein (U) [Mass/Vol] Negative NEGATIVE [place], [place] Specific [place], UA 1.010 [place], [place] Turbidity UA CLEAR CLEAR [place] Urinalysis Comments NOT REPORTED [place] Urine Hgb Negative NEGATIVE [place] Urobilinogen, Urine Normal Normal [place] CBC auto differentialon 08-07 Basophils (Bld) [#/Vol] 0.04 10*3/uL [place] Basophils/100 WBC (Bld) 1 % 0 - 2 % [place] Differential Type NOT REPORTED [place] Eosinophils (Bld) [#/Vol] 0.10 10*3/uL [place] Eosinophils/100 WBC (Bld) 1 % 1 - 4 % [place] Erythrocyte distribution width (RBC) [Ratio] 13.0 % 11.8 - 14.4 % [place] Hematocrit (Bld) [Volume fraction] 35.2 % Low 36.3 - 47.1 % [place] Hemoglobin (Bld) [Mass/Vol] 11.7 g/dL Low 11.9 - 15.1 g/dL [place] Immature granulocytes (Bld) [#/Vol] 10*3/uL [place] Immature granulocytes (Bld) [#/Vol] 0 % 0 [place] Interpretation and review of laboratory results Abnormal [place] Lymphocytes (Bld) [#/Vol] 1.87 10*3/uL [place] Lymphocytes/100 WBC (Bld) 22 % Low 24 - 43 % [place] MCH (RBC) [Entitic mass] 32.5 pg 25.2 - 33.5 pg [place] MCHC (RBC) [Mass/Vol] 33.2 g/dL 28.4 - 34.8 g/dL [place] MCV (RBC) [Entitic vol] 97.8 fL 82.6 - 102.9 fL [place] Monocytes (Bld) [#/Vol] 0.86 10*3/uL [place] Monocytes/100 WBC (Bld) 10 % 3 - 12 % [place] Platelet mean volume (Bld) [Entitic vol] 9.8 fL 8.1 - 13.5 fL [place] Platelets (Bld) [#/Vol] 178 10*3/uL [place] RBC (Bld) [#/Vol] 3.60 10*6/uL Low 3.95 - 5.1 1 m/uL [place] Segmented neutrophils/100 WBC (Bld) 66 % High 36 - 65 % [place] Segs Absolute 5.53 [place] WBC (Bld) [#/Vol] 0.0 10*3/uL 0.0 per 10 0 WBC [place] WBC (Bld) [#/Vol] 8.4 10*3/uL [place] CBC with Diffon 08-25-2019 Abs. Basophil 0.04 k/uL Normal 0.00-0.20 [facility] Comment on above: Performed By: #### C DP, LIP #### [address] [place] [address] Senior Java Software Engineer: Zafar Castillo MD Abs.Imm.Granulocyte <0.03 Normal 0.00-0.30 [facility] Comment on above: Performed By: #### C DP, LIP #### [facility] [address] [place] [address] Senior Java Software Engineer: Zafar Castillo MD Abs.Neutrophil (Seg) 5.53 k/uL Normal 1.50-8.10 [facility] Comment on above: Performed By: #### C DP, LIP #### [address] [place] [facility]83 Senior Java Software Engineer: Zafar Castillo MD Basophils/100 WBC (Bld) 1 % Normal 0-2 [facility] Comment on above: Performed By: #### C DP, LIP #### [facility] [address] [place], [place] 254[address]83 Senior Java Software Engineer: Zafar Castillo MD Eosinophils (Bld) [#/Vol] 0.10 10*3/uL Normal 0.00-0.44 [facility] Comment on above: Performed By: #### C DP, LIP #### [facility] [address] [place], [facility]83 Senior Java Software Engineer: Zafar Castillo MD Eosinophils/100 WBC (Bld) 1 % Normal 1-4 [facility] Comment on above: Performed By: #### C DP, LIP #### [facility] [address] [place], [facility]83 Senior Java Software Engineer: Zafar Castillo MD Erythrocyte distribution width (RBC) [Ratio] 13.0 % Normal 11.8-14.4 [facility] Comment on above: Performed By: #### C DP, LIP #### [address] [place] [id number] Senior Java Software Engineer: Zafar Castillo MD Hematocrit (Bld) [Volume fraction] 35.2 % Low 36.3-47.1 [facility] Comment on above: Performed By: #### C DP, LIP #### [facility] [address] [place], [facility]83 Senior Java Software Engineer: Zafar Castillo MD Hemoglobin (Bld) [Mass/Vol] 11.7 g/dL Low 11.9-15.1 [facility] Comment on above: Performed By: #### C DP, LIP #### [facility] [address] [place] [address] Senior Java Software Engineer: Zafar Castillo MD Immature granulocytes (Bld) [#/Vol] 0 % Normal 0 [facility] Comment on above: Performed By: #### C DP, LIP #### [facility] [address] [place], [place] [address] Senior Java Software Engineer: Zafar Castillo MD Lymphocytes (Bld) [#/Vol] 1.87 10*3/uL Normal 1.10-3.70 [facility] Comment on above: Performed By: #### C DP, LIP #### [facility] [address] [place], [facility]83 Senior Java Software Engineer: Zafar Castillo MD Lymphocytes/100 WBC (Bld) 22 % Low 24-43 [facility] Comment on above: Performed By: #### C DP, LIP #### [facility] [address] [place], [facility]83 Senior Java Software Engineer: Zafar Castillo MD MCH (RBC) [Entitic mass] 32.5 pg Normal 25.2-33.5 [facility] Comment on above: Performed By: #### C DP, LIP #### [facility] [address] [place], [facility]83 Senior Java Software Engineer: Zafar Castillo MD MCHC (RBC) [Mass/Vol] 33.2 g/dL Normal 28.4-34.8 [facility] Comment on above: Performed By: #### C DP, LIP #### [address] [place], [facility]83 Senior Java Software Engineer: Zafar Castillo MD MCV (RBC) [Entitic vol] 97.8 fL Normal 82.6-102.9 [facility] Comment on above: Performed By: #### C DP, LIP #### [facility] [address] [place], [place] [id number] Senior Java Software Engineer: Zafar Castillo MD Monocytes (Bld) [#/Vol] 0.86 10*3/uL Normal 0.10-1.20 [facility] Comment on above: Performed By: #### C DP, LIP #### [facility] [address] [place], [place] 9186983 Senior Java Software Engineer: Zafar Castillo MD Monocytes/100 WBC (Bld) 10 % Normal 3-12 [facility] Comment on above: Performed By: #### C DP, LIP #### [facility] [address] [place], [place] 8233483 Senior Java Software Engineer: Zafar Castillo MD Neutrophil (Seg) 66 % High 36-65 [facility] Comment on above: Performed By: #### C DP, LIP #### [facility] [address] [place], [facility]83 Senior Java Software Engineer: Zafar Castillo MD NRBC Automated 0.0 per 100 WBC Normal 0.0 [facility] Comment on above: Performed By: #### C DP, LIP #### [facility] [address] [place], [facility]83 Senior Java Software Engineer: Zafar Castillo MD Platelet mean volume (Bld) [Entitic vol] 9.8 fL Normal 8.1-13.5 [facility] Comment on above: Performed By: #### C DP, LIP #### [facility] [address] [place], [place] 8196483 Senior Java Software Engineer: Zafar Castillo MD Platelets (Bld) [#/Vol] 178 10*3/uL Normal 138-453 [facility] Comment on above: Performed By: #### C DP, LIP #### [facility] [address] [place], [place] 2015883 Senior Java Software Engineer: Zafar Castillo MD RBC (Bld) [#/Vol] 3.60 10*6/uL Low 3.95-5.11 [facility] Comment on above: Performed By: #### C DP, LIP #### [facility] [address] [place] [address] Senior Java Software Engineer: Zafar Castillo MD WBC (Bld) [#/Vol] 8.4 10*3/uL Normal 3.5-11.3 [facility] Comment on above: Performed By: #### C DP, LIP #### [facility] [address] [place], [place] [id number] Senior Java Software Engineer: Zafar Castillo MD Auto Diff Performed NOT REPORTED Normal [facility] Comment on above: Performed By: #### C DP, LIP #### [facility] [address] [place], [place] [phone] Senior Java Software Engineer: Zafar Castillo MD Platelets (Bld) [#/Vol] NOT REPORTED Normal [place], [place] Comment on above: Performed By: #### C DP, LIP #### [address] [place] [address] Senior Java Software Engineer: Zafar Castillo MD RBC morphology finding Nom (Bld) NOT REPORTED Normal [place], [place] Comment on above: Performed By: #### C DP, LIP #### [facility] [address] [place] [address] [place] [address] Senior Java Software Engineer: Zafar Castillo MD WBC Morphology NOT REPORTED Normal [place], [place] Comment on above: Performed By: #### C DP, LIP #### [facility] [address] [place] [address] Dr. [place], [place] [id number] Senior Java Software Engineer: Zafar Castillo MD Lipaseon 08-25-2019 Lipase [Catalytic activity/Vol] 42 U/L Normal 13-60 [facility] Comment on above: Performed By: #### C DP, LIP #### [facility] [address] [place] [address] Senior Java Software Engineer: Zafar Castillo MD Lipase [Catalytic activity/Vol] 42 U/L - 60 U/L [place], [place] CBC auto differentialon 08-07 Basophils (Bld) [#/Vol] 0.04 10*3/uL [place] Basophils/100 WBC (Bld) 1 % 0 - 2 % [place] Differential Type NOT REPORTED [place] Eosinophils (Bld) [#/Vol] 0.08 10*3/uL [place] Eosinophils/100 WBC (Bld) 1 % 1 - 4 % [place] Erythrocyte distribution width (RBC) [Ratio] 12.9 % 11.8 - 14.4 % [place] Hematocrit (Bld) [Volume fraction] 35.9 % Low 36.3 - 47.1 % [place] Hemoglobin (Bld) [Mass/Vol] 11.9 g/dL 11.9 - 15.1 g/dL [place] Immature granulocytes (Bld) [#/Vol] 0 % 0 [place] Immature granulocytes (Bld) [#/Vol] 0.03 10*3/uL [place] Interpretation and review of laboratory results Abnormal [place] Lymphocytes (Bld) [#/Vol] 1.79 10*3/uL [place] Lymphocytes/100 WBC (Bld) 22 % Low 24 - 43 % [place] MCH (RBC) [Entitic mass] 32.3 pg 25.2 - 33.5 pg [place] MCHC (RBC) [Mass/Vol] 33.1 g/dL 28.4 - 34.8 g/dL [place] MCV (RBC) [Entitic vol] 97.6 fL 82.6 - 102.9 fL [place] Monocytes (Bld) [#/Vol] 0.75 10*3/uL [place] Monocytes/100 WBC (Bld) 9 % 3 - 12 % [place] Platelet mean volume (Bld) [Entitic vol] 10.1 fL 8.1 - 13.5 fL [place] Platelets (Bld) [#/Vol] 176 10*3/uL [place] Platelets (Bld) [#/Vol] NOT REPORTED [place] RBC (Bld) [#/Vol] 3.68 10*6/uL Low 3.95 - 5.1 1 m/uL [place] RBC morphology finding Nom (Bld) NOT REPORTED [place] Segmented neutrophils/100 WBC (Bld) 67 % High 36 - 65 % [place] Segs Absolute 5.61 [place], [place] WBC (Bld) [#/Vol] 0.0 10*3/uL 0.0 per 10 0 WBC [place] WBC (Bld) [#/Vol] 8.3 10*3/uL [place] WBC Morphology NOT REPORTED [place], [place] CBC with Diffon 08-24-2019 Abs. Basophil 0.04 k/uL Normal 0.00-0.20 [facility] Comment on above: Performed By: #### C DP, LIP #### [facility] [address] [place] [address] Dr. [place] [phone] Senior Java Software Engineer: Zafar Castillo MD Abs.Imm.Granulocyte 0.03 k/uL Normal 0.00-0.30 [facility] Comment on above: Performed By: #### C DP, LIP #### [address] [place] [address] Senior Java Software Engineer: Zafar Castillo MD Abs.Neutrophil (Seg) 5.61 k/uL Normal 1.50-8.10 [facility] Comment on above: Performed By: #### C DP, LIP #### [address] [place] [address] Senior Java Software Engineer: Zafar Castillo MD Basophils/100 WBC (Bld) 1 % Normal 0-2 [facility] Comment on above: Performed By: #### C DP, LIP #### [facility] [address] [place] [phone] Senior Java Software Engineer: Zafar Castillo MD Eosinophils (Bld) [#/Vol] 0.08 10*3/uL Normal 0.00-0.44 [facility] Comment on above: Performed By: #### C DP, LIP #### [facility] [address] [place], [place] [phone] Senior Java Software Engineer: Zafar Castillo MD Eosinophils/100 WBC (Bld) 1 % Normal 1-4 [facility] Comment on above: Performed By: #### C DP, LIP #### [facility] [address] [place], [place] [phone] Senior Java Software Engineer: Zafar Castillo MD Erythrocyte distribution width (RBC) [Ratio] 12.9 % Normal 11.8-14.4 [facility] Comment on above: Performed By: #### C DP, LIP #### [facility] [address] [place] [address] Senior Java Software Engineer: Zafar Castillo MD Hematocrit (Bld) [Volume fraction] 35.9 % Low 36.3-47.1 [facility] Comment on above: Performed By: #### C DP, LIP #### [facility] [address] [place] [phone] Senior Java Software Engineer: Zafar Castillo MD Hemoglobin (Bld) [Mass/Vol] 11.9 g/dL Normal 11.9-15.1 [facility] Comment on above: Performed By: #### C DP, LIP #### [address] [place] [phone] Senior Java Software Engineer: Zafar Castillo MD Immature granulocytes (Bld) [#/Vol] 0 % Normal 0 [facility] Comment on above: Performed By: #### C DP, LIP #### [facility] [address] [place] [phone] Senior Java Software Engineer: Zafar Castillo MD Lymphocytes (Bld) [#/Vol] 1.79 10*3/uL Normal 1.10-3.70 [facility] Comment on above: Performed By: #### C DP, LIP #### [facility] [address] [place] [phone] Senior Java Software Engineer: Zafar Castillo MD Lymphocytes/100 WBC (Bld) 22 % Low 24-43 [facility] Comment on above: Performed By: #### C DP, LIP #### [facility] [address] [place], [place] [phone] Senior Java Software Engineer: Zafar Castillo MD MCH (RBC) [Entitic mass] 32.3 pg Normal 25.2-33.5 [facility] Comment on above: Performed By: #### C DP, LIP #### [facility] [address] [place], [place] [phone] Senior Java Software Engineer: Zafar Castillo MD MCHC (RBC) [Mass/Vol] 33.1 g/dL Normal 28.4-34.8 [facility] Comment on above: Performed By: #### C DP, LIP #### [address] [place], [facility]83 Senior Java Software Engineer: Zafar Castillo MD MCV (RBC) [Entitic vol] 97.6 fL Normal 82.6-102.9 [facility] Comment on above: Performed By: #### C DP, LIP #### [facility] [address] [place], [place] [phone] Senior Java Software Engineer: Zafar Castillo MD Monocytes (Bld) [#/Vol] 0.75 10*3/uL Normal 0.10-1.20 [facility] Comment on above: Performed By: #### C DP, LIP #### [facility] [address] [place], [place] [phone] Senior Java Software Engineer: Zafar Castillo MD Monocytes/100 WBC (Bld) 9 % Normal 3-12 [facility] Comment on above: Performed By: #### C DP, LIP #### [facility] [address] [place], [place] [phone] Senior Java Software Engineer: Zafar Castillo MD Neutrophil (Seg) 67 % High 36-65 [facility] Comment on above: Performed By: #### C DP, LIP #### [facility] [address] [place] [address] Senior Java Software Engineer: Zafar Castillo MD NRBC Automated 0.0 per 100 WBC Normal 0.0 [facility] Comment on above: Performed By: #### C DP, LIP #### [facility] [address] [place], [facility]83 Senior Java Software Engineer: Zafar Castillo MD Platelet mean volume (Bld) [Entitic vol] 10.1 fL Normal 8.1-13.5 [facility] Comment on above: Performed By: #### C DP, LIP #### [facility] [address] [place], [facility]83 Senior Java Software Engineer: Zafar Castillo MD Platelets (Bld) [#/Vol] 176 10*3/uL Normal 138-453 [facility] Comment on above: Performed By: #### C DP, LIP #### [facility] [address] [place], [facility]83 Senior Java Software Engineer: Zafar Castillo MD RBC (Bld) [#/Vol] 3.68 10*6/uL Low 3.95-5.11 [facility] Comment on above: Performed By: #### C DP, LIP #### [facility] [address] [place], [facility]83 Senior Java Software Engineer: Zafar Castillo MD WBC (Bld) [#/Vol] 8.3 10*3/uL Normal 3.5-11.3 [facility] Comment on above: Performed By: #### C DP, LIP #### [facility] [address] [place], [facility]83 Senior Java Software Engineer: Zafar Castillo MD Auto Diff Performed NOT REPORTED Normal [facility] Comment on above: Performed By: #### C DP, LIP #### [facility] [address] [place], [facility]83 Senior Java Software Engineer: Zafar Castillo MD Platelets (Bld) [#/Vol] NOT REPORTED Normal [facility] Comment on above: Performed By: #### C DP, LIP #### [facility] [address] [place], [place] [phone] Senior Java Software Engineer: Zafar Castillo MD RBC morphology finding Nom (Bld) NOT REPORTED Normal [facility] Comment on above: Performed By: #### C DP, LIP #### [facility] [address] [place], [place] [phone] Senior Java Software Engineer: Zafar Castillo MD WBC Morphology NOT REPORTED Normal [facility] Comment on above: Performed By: #### C DP, LIP #### [facility] [address] [place], [place] [phone] Senior Java Software Engineer: Zafar Castillo MD Lipaseon 08-24-2019 Lipase [Catalytic activity/Vol] 69 U/L High 13-60 [facility] Comment on above: Performed By: #### C DP, LIP #### [facility] [address] [place] [address] Senior Java Software Engineer: Zafar Castillo MD Interpretation and review of laboratory results Abnormal [place] Lipase [Catalytic activity/Vol] 69 U/L High 13 - 60 U/L [place] CBC auto differentialon 08-07 Basophils (Bld) [#/Vol] 0.05 10*3/uL [place] Basophils/100 WBC (Bld) 1 % 0 - 2 % [place] Differential Type NOT REPORTED [place] Eosinophils (Bld) [#/Vol] 0.13 10*3/uL [place] Eosinophils/100 WBC (Bld) 2 % 1 - 4 % [place] Erythrocyte distribution width (RBC) [Ratio] 13.2 % 11.8 - 14.4 % [place] Hematocrit (Bld) [Volume fraction] 36.7 % 36.3 - 47.1 % [place] Hemoglobin (Bld) [Mass/Vol] 11.8 g/dL Low 11.9 - 15.1 g/dL [place] Immature granulocytes (Bld) [#/Vol] 0 % 0 [place] Immature granulocytes (Bld) [#/Vol] 10*3/uL [place] Interpretation and review of laboratory results Abnormal [place] Lymphocytes (Bld) [#/Vol] 2.39 10*3/uL [place] Lymphocytes/100 WBC (Bld) 28 % 24 - 43 % [place] MCH (RBC) [Entitic mass] 32.1 pg 25.2 - 33.5 pg [place] MCHC (RBC) [Mass/Vol] 32.2 g/dL 28.4 - 34.8 g/dL [place] MCV (RBC) [Entitic vol] 99.7 fL 82.6 - 102.9 fL [place] Monocytes (Bld) [#/Vol] 0.77 10*3/uL [place] Monocytes/100 WBC (Bld) 9 % 3 - 12 % [place] Platelet mean volume (Bld) [Entitic vol] 10.1 fL 8.1 - 13.5 fL [place] Platelets (Bld) [#/Vol] 174 10*3/uL [place] Platelets (Bld) [#/Vol] NOT REPORTED [place] RBC (Bld) [#/Vol] 3.68 10*6/uL Low 3.95 - 5.1 1 m/uL [place] RBC morphology finding Nom (Bld) NOT REPORTED [place] Segmented neutrophils/100 WBC (Bld) 60 % 36 - 65 % [place] Segs Absolute 5.22 [place] WBC (Bld) [#/Vol] 0.0 10*3/uL 0.0 per 10 0 WBC [place] WBC (Bld) [#/Vol] 8.6 10*3/uL [place] WBC Morphology NOT REPORTED [facility] [place] [place] CBC with Diffon 08-23-2019 Abs. Basophil 0.05 k/uL Normal 0.00-0.20 [facility] Comment on above: Performed By: #### C DP, LIP #### [facility] [address] [place], [place] [phone] Senior Java Software Engineer: Zafar Castillo MD Abs.Imm.Granulocyte <0.03 Normal 0.00-0.30 [facility] Comment on above: Performed By: #### C DP, LIP #### [facility] [address] [place] [address] Senior Java Software Engineer: Zafar Castillo MD Abs.Neutrophil (Seg) 5.22 k/uL Normal 1.50-8.10 [facility] Comment on above: Performed By: #### C DP, LIP #### [facility] [address] [place] [phone] Senior Java Software Engineer: Zafar Castillo MD Basophils/100 WBC (Bld) 1 % Normal 0-2 [facility] Comment on above: Performed By: #### C DP, LIP #### [facility] [address] [place], [place] [phone] Senior Java Software Engineer: Zafar Castillo MD Eosinophils (Bld) [#/Vol] 0.13 10*3/uL Normal 0.00-0.44 [facility] Comment on above: Performed By: #### C DP, LIP #### [facility] [address] [place], [place] [phone] Senior Java Software Engineer: Zafar Castillo MD Eosinophils/100 WBC (Bld) 2 % Normal 1-4 [facility] Comment on above: Performed By: #### C DP, LIP #### [facility] [address] [place], [place] [phone] Senior Java Software Engineer: Zafar Castillo MD Erythrocyte distribution width (RBC) [Ratio] 13.2 % Normal 11.8-14.4 [facility] Comment on above: Performed By: #### C DP, LIP #### [facility] [address] [place], [place] 1459183 Senior Java Software Engineer: Zafar Castillo MD Hematocrit (Bld) [Volume fraction] 36.7 % Normal 36.3-47.1 [facility] Comment on above: Performed By: #### C DP, LIP #### [facility] [address] [place] [address] Senior Java Software Engineer: Zafar Castillo MD Hemoglobin (Bld) [Mass/Vol] 11.8 g/dL Low 11.9-15.1 [facility] Comment on above: Performed By: #### C DP, LIP #### [address] [place] [facility]83 Senior Java Software Engineer: Zafar Castillo MD Immature granulocytes (Bld) [#/Vol] 0 % Normal 0 [facility] Comment on above: Performed By: #### C DP, LIP #### [facility] [address] [place] [phone] Senior Java Software Engineer: Zafar Castillo MD Lymphocytes (Bld) [#/Vol] 2.39 10*3/uL Normal 1.10-3.70 [facility] Comment on above: Performed By: #### C DP, LIP #### [address] [place] [address] Senior Java Software Engineer: Zafar Castillo MD Lymphocytes/100 WBC (Bld) 28 % Normal 24-43 [facility] Comment on above: Performed By: #### C DP, LIP #### [facility] [address] [place] [phone] Senior Java Software Engineer: Zafar Castillo MD MCH (RBC) [Entitic mass] 32.1 pg Normal 25.2-33.5 [facility] Comment on above: Performed By: #### C DP, LIP #### [facility] [address] [place] [address] Senior Java Software Engineer: Zafar Castillo MD MCHC (RBC) [Mass/Vol] 32.2 g/dL Normal 28.4-34.8 [facility] Comment on above: Performed By: #### C DP, LIP #### [facility] [address] [place], [place] [phone] Senior Java Software Engineer: Zafar Castillo MD MCV (RBC) [Entitic vol] 99.7 fL Normal 82.6-102.9 [facility] Comment on above: Performed By: #### C DP, LIP #### [facility] [address] [place], [facility]83 Senior Java Software Engineer: Zafar Castillo MD Monocytes (Bld) [#/Vol] 0.77 10*3/uL Normal 0.10-1.20 [facility] Comment on above: Performed By: #### C DP, LIP #### [facility] [address] [place], [facility]83 Senior Java Software Engineer: Zafar Castillo MD Monocytes/100 WBC (Bld) 9 % Normal 3-12 [facility] Comment on above: Performed By: #### C DP, LIP #### [facility] [address] [place], [facility]83 Senior Java Software Engineer: Zafar Castillo MD Neutrophil (Seg) 60 % Normal 36-65 [facility] Comment on above: Performed By: #### C DP, LIP #### [facility] [address] [place], [facility]83 Senior Java Software Engineer: Zafar Castillo MD NRBC Automated 0.0 per 100 WBC Normal 0.0 [facility] Comment on above: Performed By: #### C DP, LIP #### [facility] [address] [place], [place] [phone] Senior Java Software Engineer: Zafar Castillo MD Platelet mean volume (Bld) [Entitic vol] 10.1 fL Normal 8.1-13.5 [facility] Comment on above: Performed By: #### C DP, LIP #### [facility] [address] [place], [place] [address] Senior Java Software Engineer: Zafar Castillo MD Platelets (Bld) [#/Vol] 174 10*3/uL Normal 138-453 [facility] Comment on above: Performed By: #### C DP, LIP #### [facility] [address] [place], [facility]83 Senior Java Software Engineer: Zafar Castillo MD RBC (Bld) [#/Vol] 3.68 10*6/uL Low 3.95-5.11 [facility] Comment on above: Performed By: #### C DP, LIP #### [facility] [address] [place], [facility]83 Senior Java Software Engineer: Zafar Castillo MD WBC (Bld) [#/Vol] 8.6 10*3/uL Normal 3.5-11.3 [facility] Comment on above: Performed By: #### C DP, LIP #### [facility] [address] [place], [place] [address] Senior Java Software Engineer: Zafar Castillo MD Auto Diff Performed NOT REPORTED Normal [facility] Comment on above: Performed By: #### C DP, LIP #### [facility] [address] [place], [place] [address] Senior Java Software Engineer: Zafar Castillo MD Platelets (Bld) [#/Vol] NOT REPORTED Normal [facility] Comment on above: Performed By: #### C DP, LIP #### [facility] [address] [place], [place] [address] Senior Java Software Engineer: Zafar Castillo MD RBC morphology finding Nom (Bld) NOT REPORTED Normal [facility] Comment on above: Performed By: #### C DP, LIP #### [facility] [address] [place], [facility]83 Senior Java Software Engineer: Zafar Castillo MD WBC Morphology NOT REPORTED Normal [facility] Comment on above: Performed By: #### C DP, LIP #### [facility] [address] [place] [address] Senior Java Software Engineer: Zafar Castillo MD Comp Metabolic Profon 2019 (cont.) Normal [facility] Comment on above: Result Comment: Aver age GFR for 50-59 years old: 93 mL/min/1.73sq m Chronic Kidney Disease: <60 mL/min/1.73sq m Kidney failure: <15 mL/min/1.73sq m eGFR calculated using average adult body mass. Additional eGFR calculator available at: http://www.[employer]/multiple_crcl_2011.htm Performed By: #### C DP, LIP #### [facility] [address] [place] [address] Senior Java Software Engineer: Zafar Castillo MD Albumin [Mass/Vol] 3.4 g/dL Low 3.5-5.2 [facility] Comment on above: Performed By: #### C DP, LIP #### [facility] [address] [place] [address] Senior Java Software Engineer: Zafar Castillo MD Albumin/Globulin [Mass ratio] 1.7 {ratio} Normal 1.0-2.5 [facility] Comment on above: Performed By: #### C DP, LIP #### [facility] [address] [place], [place] [phone] Senior Java Software Engineer: Zafar Castillo MD Alkaline Phos 102 U/L Normal 35-104 [facility] Comment on above: Performed By: #### C DP, LIP #### [facility] [address] [place] [address] Senior Java Software Engineer: Zafar Castillo MD ALT [Catalytic activity/Vol] 34 U/L High 5-33 [facility] Comment on above: Performed By: #### C DP, LIP #### [facility] [address] [place], [place] [phone] Senior Java Software Engineer: Zafar Castillo MD Anion gap [Moles/Vol] 7 mmol/L Low 9-17 [facility] Comment on above: Performed By: #### C DP, LIP #### [facility] [address] [place], [place] [phone] Senior Java Software Engineer: Zafar Castillo MD AST [Catalytic activity/Vol] 95 U/L High <32 [facility] Comment on above: Performed By: #### C DP, LIP #### [facility] [address] [place], [place] 1876683 Senior Java Software Engineer: Zafar Castillo MD Bilirubin Ql (U) 0.46 mg/dL Normal 0.3-1.2 [facility] Comment on above: Performed By: #### C DP, LIP #### [facility] [address] [place], [place] [phone] Senior Java Software Engineer: Zafar Castillo MD BUN/CRE Ratio 11 Normal 9-20 [facility] Comment on above: Performed By: #### C DP, LIP #### [facility] [address] [place], [place] 8682883 Senior Java Software Engineer: Zafar Castillo MD Calcium [Mass/Vol] 8.4 mg/dL Low 8.6-10.4 [facility] Comment on above: Performed By: #### C DP, LIP #### [facility] [address] [place], [place] [phone] Senior Java Software Engineer: Zafar Castillo MD Chloride [Moles/Vol] 109 mmol/L High 98-107 [facility] Comment on above: Performed By: #### C DP, LIP #### [facility] [address] [place] [address] Senior Java Software Engineer: Zafar Castillo MD CO2 [Moles/Vol] 22 mmol/L Normal 20-31 [facility] Comment on above: Performed By: #### C DP, LIP #### [facility] [address] [place] [address] Senior Java Software Engineer: Zafar Castillo MD Creatinine [Mass/Vol] 0.66 mg/dL Normal 0.50-0.90 [facility] Comment on above: Performed By: #### C DP, LIP #### [facility] [address] [place], [place] 8995983 Senior Java Software Engineer: Zafar Castillo MD GFR, Amer >60 Normal >60 [facility] Comment on above: Performed By: #### C DP, LIP #### [facility] [address] [place] [address] Senior Java Software Engineer: Zafar Castillo MD GFR,non Amer >60 Normal >60 [facility] Comment on above: Performed By: #### C DP, LIP #### [facility] [address] [place], [place] [phone] Senior Java Software Engineer: Zafar Castillo MD Glucose [Mass/Vol] 89 mg/dL Normal 70-99 [facility] Comment on above: Performed By: #### C DP, LIP #### [facility] [address] [place], [place] 3728483 Senior Java Software Engineer: Zafar Castillo MD Potassium [Moles/Vol] 4.3 mmol/L Normal 3.7-5.3 [facility] Comment on above: Performed By: #### C DP, LIP #### [facility] [address] [place], [place] [phone] Senior Java Software Engineer: Zafar Castillo MD Protein [Mass/Vol] 5.4 g/dL Low 6.4-8.3 [facility] Comment on above: Performed By: #### C DP, LIP #### [facility] [address] [place] [address] Senior Java Software Engineer: Zafar Castillo MD Sodium [Moles/Vol] 138 mmol/L Normal 135-144 [facility] Comment on above: Performed By: #### C DP, LIP #### [facility] [address] [place] [address] Senior Java Software Engineer: Zafar Castillo MD Staging: Normal [facility] Comment on above: Result Comment: Stag e 1: Some kidney damage normal GFR Stage 2: Mild kidney damage GFR 60-89 Stage 3: Moderate kidney damage GFR 30-59 Stage 4: Severe kidney damage GFR 15-29 Stage 5: Severe kidney damage GFR <15 ESRD - chronic treatment by dialysis or transplant Performed By: #### C DP, LIP #### [facility] [address] [place] [address] Senior Java Software Engineer: Zafar Castillo MD Urea nitrogen [Mass/Vol] 7 mg/dL Normal 6-20 [facility] Comment on above: Performed By: #### C DP, LIP #### [facility] [address] [place] [address] Senior Java Software Engineer: Zafar Castillo MD [facility] 08-23-2019 Albumin [Mass/Vol] 3.4 g/dL Low 3.5 - 5.2 g/dL [place] Albumin/Globulin [Mass ratio] 1.7 {ratio} [place] ALP [Catalytic activity/Vol] 102 U/L 35 - 104 U/L [place] ALT [Catalytic activity/Vol] 34 U/L High 5 - 33 U/L [place] Anion gap [Moles/Vol] 7 mmol/L Low 9 - 17 mmol/L [place] AST [Catalytic activity/Vol] 95 U/L High <32 [place], [place] Bilirubin Ql (U) 0.46 mg/dL 0.3 - 1.2 mg/dL [place] Bun/Cre Ratio 11 [place] Calcium [Mass/Vol] 8.4 mg/dL Low 8.6 - 10. 4 mg/dL [place] Chloride [Moles/Vol] 109 mmol/L High 98 - 10 7 mmol/L [place] CO2 [Moles/Vol] 22 mmol/L 20 - 31 mmol/L [place] Creatinine [Mass/Vol] 0.66 mg/dL 0.5 - 0.9 mg/dL [place] GFR >60 >60 mL/min [place], [place] GFR Non- >60 >60 mL/min [place] Glucose [Mass/Vol] 89 mg/dL 70 - 99 mg/dL [place] Potassium [Moles/Vol] 4.3 mmol/L 3.7 - 5.3 mmol/L [place] Protein [Mass/Vol] 5.4 g/dL Low 6.4 - 8.3 g/dL [place] Sodium [Moles/Vol] 138 mmol/L 135 - 144 mmol/L [place] Urea nitrogen [Mass/Vol] 7 mg/dL 6 - 20 mg/dL [place] Lipaseon 08-23-2019 Lipase [Catalytic activity/Vol] 96 U/L High 13-60 [facility] Comment on above: Performed By: #### C DP, LIP #### [facility] [address] [place] [address] Senior Java Software Engineer: Zafar Castillo MD Lipase [Catalytic activity/Vol] 96 U/L High 13 - 60 U/L [place] Metabolic Panelon 08-23-2019 GFR/1.73 sq M predicted among non-blacks MDRD (S/P/Bld) [Vol rate/Area] [place], [place] Comment on above: Stage 1: Some kidney damage normal GFR Stage 2: Mild kidney damage GFR 60-89 Stage 3: Moderate kidney damage GFR 30-59 Stage 4: Severe kidney damage GFR 15-29 Stage 5: Severe kidney damage GFR <15 ESRD - chronic treatment by dialysis or transplant Average GFR for 50-5 9 years old: 93 mL/min/1.73sq m Chronic Kidney Disease: <60 mL/min/1.73sq m Kidney failure: <15 mL/min/1.73sq m eGFR calculated using average adult body mass. Additional eGFR calculator available at: http://www.[employer].AppMesh/multiple_crcl_2012.htm Otheron 08-23-2019 Interpretation and review of laboratory results Abnormal [place] CBC Auto Differentialon 08-07 Basophils (Bld) [#/Vol] 0.06 10*3/uL [place] Basophils/100 WBC (Bld) 1 % 0 - 2 % [place] Differential Type NOT REPORTED [place] Eosinophils (Bld) [#/Vol] 0.11 10*3/uL [place] Eosinophils/100 WBC (Bld) 1 % 1 - 4 % [place] Erythrocyte distribution width (RBC) [Ratio] 13.2 % 11.8 - 14.4 % [place] Hematocrit (Bld) [Volume fraction] 41.8 % 36.3 - 47.1 % [place] Hemoglobin (Bld) [Mass/Vol] 13.7 g/dL 11.9 - 15.1 g/dL [place] Immature granulocytes (Bld) [#/Vol] 0.03 10*3/uL [place] Immature granulocytes (Bld) [#/Vol] 0 % 0 [place] Interpretation and review of laboratory results Abnormal [place] Lymphocytes (Bld) [#/Vol] 2.23 10*3/uL [place] Lymphocytes/100 WBC (Bld) 24 % 24 - 43 % [place] MCH (RBC) [Entitic mass] 32.6 pg 25.2 - 33.5 pg [place] MCHC (RBC) [Mass/Vol] 32.8 g/dL 28.4 - 34.8 g/dL [place] MCV (RBC) [Entitic vol] 99.5 fL 82.6 - 102.9 fL [place] Monocytes (Bld) [#/Vol] 0.72 10*3/uL [place] Monocytes/100 WBC (Bld) 8 % 3 - 12 % [place] Platelet mean volume (Bld) [Entitic vol] 10.0 fL 8.1 - 13.5 fL [place] Platelets (Bld) [#/Vol] NOT REPORTED [place] Platelets (Bld) [#/Vol] 213 10*3/uL [place] RBC (Bld) [#/Vol] 4.20 10*6/uL 3.95 - 5.1 1 m/uL [place] RBC morphology finding Nom (Bld) NOT REPORTED [place] Segmented neutrophils/100 WBC (Bld) 66 % High 36 - 65 % [place] Segs Absolute 6.22 [place] WBC (Bld) [#/Vol] 0.0 10*3/uL 0.0 per 10 0 WBC [place] WBC (Bld) [#/Vol] 9.4 10*3/uL [place] WBC Morphology NOT REPORTED [place] CBC with Diffon 08-22-2019 Abs. Basophil 0.06 k/uL Normal 0.00-0.20 [facility] Comment on above: Performed By: #### C P, CDP, LIP #### [address] [place] [address] Senior Java Software Engineer: Zafar Castillo MD Abs.Imm.Granulocyte 0.03 k/uL Normal 0.00-0.30 [facility] Comment on above: Performed By: #### C P, CDP, LIP #### [address] [place] [phone] Senior Java Software Engineer: Zafar Castillo MD Abs.Neutrophil (Seg) 6.22 k/uL Normal 1.50-8.10 [facility] Comment on above: Performed By: #### C P, CDP, LIP #### [address] [place] [address] Senior Java Software Engineer: Zafar Castillo MD Basophils/100 WBC (Bld) 1 % Normal 0-2 [facility] Comment on above: Performed By: #### C P, CDP, LIP #### [address] [place], [facility]83 Senior Java Software Engineer: Zafar Castillo MD Eosinophils (Bld) [#/Vol] 0.11 10*3/uL Normal 0.00-0.44 [facility] Comment on above: Performed By: #### C P, CDP, LIP #### [address] [place], [place] [address] Senior Java Software Engineer: Zafar Castillo MD Eosinophils/100 WBC (Bld) 1 % Normal 1-4 [facility] Comment on above: Performed By: #### C P, CDP, LIP #### [address] [place] [address] Senior Java Software Engineer: Zafar Castillo MD Erythrocyte distribution width (RBC) [Ratio] 13.2 % Normal 11.8-14.4 [facility] Comment on above: Performed By: #### C P, CDP, LIP #### [address] [place] [address] Senior Java Software Engineer: Zafar Castillo MD Hematocrit (Bld) [Volume fraction] 41.8 % Normal 36.3-47.1 [facility] Comment on above: Performed By: #### C P, CDP, LIP #### [address] [place] [address] Senior Java Software Engineer: Zafar Castillo MD Hemoglobin (Bld) [Mass/Vol] 13.7 g/dL Normal 11.9-15.1 [facility] Comment on above: Performed By: #### C P, CDP, LIP #### [address] [place] [phone] Senior Java Software Engineer: Zafar Castillo MD Immature granulocytes (Bld) [#/Vol] 0 % Normal 0 [facility] Comment on above: Performed By: #### C P, CDP, LIP #### [address] [place], [facility]83 Senior Java Software Engineer: Zaafr Castillo MD Lymphocytes (Bld) [#/Vol] 2.23 10*3/uL Normal 1.10-3.70 [facility] Comment on above: Performed By: #### C P, CDP, LIP #### [address] [place], [facility]83 Senior Java Software Engineer: Zafar Castillo MD Lymphocytes/100 WBC (Bld) 24 % Normal 24-43 [facility] Comment on above: Performed By: #### C P, CDP, LIP #### [address] [place] [phone] Senior Java Software Engineer: Zafar Castillo MD MCH (RBC) [Entitic mass] 32.6 pg Normal 25.2-33.5 [facility] Comment on above: Performed By: #### C P, CDP, LIP #### [address] [place] [phone] Senior Java Software Engineer: Zafar Castillo MD MCHC (RBC) [Mass/Vol] 32.8 g/dL Normal 28.4-34.8 [facility] Comment on above: Performed By: #### C P, CDP, LIP #### [address] [place] [phone] Senior Java Software Engineer: Zafar Castillo MD MCV (RBC) [Entitic vol] 99.5 fL Normal 82.6-102.9 [facility] Comment on above: Performed By: #### C P, CDP, LIP #### [address] [place] [phone] Senior Java Software Engineer: Zafar Castillo MD Monocytes (Bld) [#/Vol] 0.72 10*3/uL Normal 0.10-1.20 [facility] Comment on above: Performed By: #### C P, CDP, LIP #### [address] [place] [phone] Senior Java Software Engineer: Zafar Castillo MD Monocytes/100 WBC (Bld) 8 % Normal 3-12 [facility] Comment on above: Performed By: #### C P, CDP, LIP #### [facility] [address] [place], [place] [phone] Senior Java Software Engineer: Zafar Castillo MD Neutrophil (Seg) 66 % High 36-65 [facility] Comment on above: Performed By: #### C P, CDP, LIP #### [facility] [address] [place], [place] [phone] Senior Java Software Engineer: Zafar Castillo MD NRBC Automated 0.0 per 100 WBC Normal 0.0 [facility] Comment on above: Performed By: #### C P, CDP, LIP #### [facility] [address] [place], [place] [phone] Senior Java Software Engineer: Zafar Castillo MD Platelet mean volume (Bld) [Entitic vol] 10.0 fL Normal 8.1-13.5 [facility] Comment on above: Performed By: #### C P, CDP, LIP #### [facility] [address] [place], [place] [phone] Senior Java Software Engineer: Zafar Castillo MD Platelets (Bld) [#/Vol] 213 10*3/uL Normal 138-453 [facility] Comment on above: Performed By: #### C P, CDP, LIP #### [facility] [address] [place], [place] [phone] Senior Java Software Engineer: Zafar Castillo MD RBC (Bld) [#/Vol] 4.20 10*6/uL Normal 3.95-5.11 [facility] Comment on above: Performed By: #### C P, CDP, LIP #### [facility] [address] [place], [place] [phone] Senior Java Software Engineer: Zafar Castillo MD WBC (Bld) [#/Vol] 9.4 10*3/uL Normal 3.5-11.3 [facility] Comment on above: Performed By: #### C P, CDP, LIP #### [facility] [address] [place], [place] [phone] Senior Java Software Engineer: Zafar Castillo MD Auto Diff Performed NOT REPORTED Normal [facility] Comment on above: Performed By: #### C P, CDP, LIP #### [facility] [address] [place], [place] [address] Senior Java Software Engineer: Zafar Castillo MD Platelets (Bld) [#/Vol] NOT REPORTED Normal [facility] Comment on above: Performed By: #### C P, CDP, LIP #### [facility] [address] [place], [place] [address] Senior Java Software Engineer: Zafar Castillo MD RBC morphology finding Nom (Bld) NOT REPORTED Normal [facility] Comment on above: Performed By: #### C P, CDP, LIP #### [facility] [address] [place], [place] [address] Senior Java Software Engineer: Zafar Castillo MD WBC Morphology NOT REPORTED Normal [facility] Comment on above: Performed By: #### C P, CDP, LIP #### [facility] [address] [place], [facility]83 Senior Java Software Engineer: Zafar Castillo MD Comp Metabolic Profon 2019 Bilirubin Ql (U) <0.10 Low 0.3-1.2 [facility] Comment on above: Performed By: #### C DP, LIP #### [facility] [address] [place], [place] [phone] Senior Java Software Engineer: Zafar Castillo MD (cont.) [facility] Comment on above: Result Comment: Aver age GFR for 50-59 years old: 93 mL/min/1.73sq m Chronic Kidney Disease: <60 mL/min/1.73sq m Kidney failure: <15 mL/min/1.73sq m eGFR calculated using average adult body mass. Additional eGFR calculator available at: http://www.[employer].AppMesh/multiple_crcl_2011.htm Performed By: #### C DP, LIP #### [facility] [address] [place], [place] [phone] Senior Java Software Engineer: Zafar Castillo MD Albumin [Mass/Vol] 4.1 g/dL Normal 3.5-5.2 [facility] Comment on above: Performed By: #### C DP, LIP #### [facility] [address] [place], [place] [phone] Senior Java Software Engineer: Zafar Castillo MD Albumin/Globulin [Mass ratio] 1.6 {ratio} Normal 1.0-2.5 [facility] Comment on above: Performed By: #### C DP, LIP #### [facility] [address] [place], [place] [phone] Senior Java Software Engineer: Zafar Castillo MD Alkaline Phos 109 U/L High 35-104 [facility] Comment on above: Performed By: #### C DP, LIP #### [facility] [address] [place], [place] [phone] Senior Java Software Engineer: Zafar Castillo MD ALT [Catalytic activity/Vol] 13 U/L Normal 5-33 [facility] Comment on above: Performed By: #### C DP, LIP #### [facility] [address] [place], [place] 2987483 Senior Java Software Engineer: Zafar Castillo MD Anion gap [Moles/Vol] 9 mmol/L Normal 9-17 [facility] Comment on above: Performed By: #### C DP, LIP #### [facility] [address] [place], [place] 3436683 Senior Java Software Engineer: Zafar Castillo MD AST [Catalytic activity/Vol] 22 U/L Normal <32 [facility] Comment on above: Performed By: #### C DP, LIP #### [facility] [address] [place], [place] 9369583 Senior Java Software Engineer: Zafar Castillo MD BUN/CRE Ratio 13 Normal 9-20 [facility] Comment on above: Performed By: #### C DP, LIP #### [facility] [address] [place], [place] 0200583 Senior Java Software Engineer: Zafar Castillo MD Calcium [Mass/Vol] 9.2 mg/dL Normal 8.6-10.4 [facility] Comment on above: Performed By: #### C DP, LIP #### [facility] [address] [place], [place] [phone] Senior Java Software Engineer: Zafar Castillo MD Chloride [Moles/Vol] 103 mmol/L Normal 98-107 [facility] Comment on above: Performed By: #### C DP, LIP #### [facility] [address] [place], [place] 2923283 Senior Java Software Engineer: Zafar Castillo MD CO2 [Moles/Vol] 24 mmol/L Normal 20-31 [facility] Comment on above: Performed By: #### C DP, LIP #### [facility] [address] [place], [place] 6950783 Senior Java Software Engineer: Zafar Castillo MD Creatinine [Mass/Vol] 0.63 mg/dL Normal 0.50-0.90 [facility] Comment on above: Performed By: #### C DP, LIP #### [facility] [address] [place], [place] 0641983 Senior Java Software Engineer: Zafar Castillo MD GFR, Amer >60 Normal >60 [facility] Comment on above: Performed By: #### C DP, LIP #### [facility] [address] [place], [place] 6906783 Senior Java Software Engineer: Zafar Castillo MD GFR,non Amer >60 Normal >60 [facility] Comment on above: Performed By: #### C DP, LIP #### [facility] [address] [place], [place] [phone] Senior Java Software Engineer: Zafar Castillo MD Glucose [Mass/Vol] 92 mg/dL Normal 70-99 [facility] Comment on above: Performed By: #### C DP, LIP #### [facility] [address] [place], [place] 9681383 Senior Java Software Engineer: Zafar Castillo MD Potassium [Moles/Vol] 3.8 mmol/L Normal 3.7-5.3 [facility] Comment on above: Performed By: #### C DP, LIP #### [facility] [address] [place], [place] [phone] Senior Java Software Engineer: Zafar Castillo MD Protein [Mass/Vol] 6.7 g/dL Normal 6.4-8.3 [facility] Comment on above: Performed By: #### C DP, LIP #### [facility] [address] [place], [place] [phone] Senior Java Software Engineer: Zafar Castillo MD Sodium [Moles/Vol] 136 mmol/L Normal 135-144 [facility] Comment on above: Performed By: #### C DP, LIP #### [address] [place], [place] 2650983 Senior Java Software Engineer: Zafar Castillo MD Staging: Normal [facility] Comment on above: Result Comment: Stag e 1: Some kidney damage normal GFR Stage 2: Mild kidney damage GFR 60-89 Stage 3: Moderate kidney damage GFR 30-59 Stage 4: Severe kidney damage GFR 15-29 Stage 5: Severe kidney damage GFR <15 ESRD - chronic treatment by dialysis or transplant Performed By: #### C DP, LIP #### [facility] [address] [place], [place] 0809183 Senior Java Software Engineer: Zafar Castillo MD Urea nitrogen [Mass/Vol] 8 mg/dL Normal 6-20 [facility] Comment on above: Performed By: #### C DP, LIP #### [facility] [address] [place] [address] Senior Java Software Engineer: Zafar Castillo MD Comprehensive Metabolic Pane [facility] 08-22-2019 Albumin [Mass/Vol] 4.1 g/dL 3.5 - 5.2 g/dL [place] Albumin/Globulin [Mass ratio] 1.6 {ratio} [place] ALP [Catalytic activity/Vol] 109 U/L High 35 - 104 U/L [place] ALT [Catalytic activity/Vol] 13 U/L 5 - 33 U/L [place] Anion gap [Moles/Vol] 9 mmol/L 9 - 17 mmol/L [place] AST [Catalytic activity/Vol] 22 U/L <32 [place] Bilirubin Ql (U) <0.10 Low 0.3 - 1.2 mg/dL [place] Bun/Cre Ratio 13 [place] Calcium [Mass/Vol] 9.2 mg/dL 8.6 - 10. 4 mg/dL [place] Chloride [Moles/Vol] 103 mmol/L 98 - 10 7 mmol/L [place] CO2 [Moles/Vol] 24 mmol/L 20 - 31 mmol/L [place] Creatinine [Mass/Vol] 0.63 mg/dL 0.5 - 0.9 mg/dL [place] GFR >60 >60 mL/min [place] GFR Non- >60 >60 mL/min [place] Glucose [Mass/Vol] 92 mg/dL 70 - 99 mg/dL [place] Interpretation and review of laboratory results Abnormal [place] Potassium [Moles/Vol] 3.8 mmol/L 3.7 - 5.3 mmol/L [place] Protein [Mass/Vol] 6.7 g/dL 6.4 - 8.3 g/dL [place] Sodium [Moles/Vol] 136 mmol/L 135 - 144 mmol/L [place] Urea nitrogen [Mass/Vol] 8 mg/dL 6 - 20 mg/dL [place] Lactic Acidon 08-22-2019 Lactate [Moles/Vol] 1.5 mmol/L Normal 0.5-2.2 [facility] Comment on above: Performed By: #### L ACTIC #### [facility] [address] [place] [address] Senior Java Software Engineer: Zafar Castillo MD Lactate [Moles/Vol] NOT REPORTED Normal 0.7-2.1 [facility] Comment on above: Performed By: #### L ACTIC #### [facility] [address] [place] [address] Senior Java Software Engineer: Zafar Castillo MD Lactic Acid, Plasmaon 2019 Lactate [Moles/Vol] 1.5 mmol/L 0.5 - 2. 2 mmol/L [place] Lactic Acid, Whole Blood NOT REPORTED 0.7 - 2.1 mmol/L [place] Lipaseon 08-22-2019 Lipase [Catalytic activity/Vol] 255 U/L Critically high 13-60 [facility] Comment on above: Performed By: #### C DP, LIP #### [facility] [address] [place] [address] Senior Java Software Engineer: Zafar Castillo MD Interpretation and review of laboratory results Abnormal [place] Lipase [Catalytic activity/Vol] 255 U/L Critically high 13 - 60 U/L [place] Metabolic Panelon 08-22-2019 GFR/1.73 sq M predicted among non-blacks MDRD (S/P/Bld) [Vol rate/Area] [place] Comment on above: Average GFR for 50-5 9 years old: 93 mL/min/1.73sq m Chronic Kidney Disease: <60 mL/min/1.73sq m Kidney failure: <15 mL/min/1.73sq m eGFR calculated using average adult body mass. Additional eGFR calculator available at: http://www.[employer]/multiple_crcl_2012.htm Stage 1: Some kidney damage normal GFR Stage 2: Mild kidney damage GFR 60-89 Stage 3: Moderate kidney damage GFR 30-59 Stage 4: Severe kidney damage GFR 15-29 Stage 5: Severe kidney damage GFR <15 ESRD - chronic treatment by dialysis or transplant Urinalysis w/ Microon 2019 ----- Normal [facility] Comment on above: Performed By: #### C DP, LIP #### [facility] [address] [place], [place] [phone] Senior Java Software Engineer: Zafar Castillo MD Acetoacetic Acid,Ur Negative Normal NEG [facility] Comment on above: Performed By: #### C DP, LIP #### [facility] [address] [place] [address] Senior Java Software Engineer: Zafar Castillo MD Bilirubin, SemiQt,Ur Negative Normal [facility] Comment on above: Performed By: #### C DP, LIP #### [facility] [address] [place], [place] [phone] Senior Java Software Engineer: Zafar Castillo MD Color (U) YELLOW Normal L [facility] Comment on above: Performed By: #### C DP, LIP #### [address] [place], [place] [phone] Senior Java Software Engineer: Zafar Castillo MD Epithelial cells LM.HPF (Urine sed) [#/Area] 2 TO 5 Normal 0-25 [facility] Comment on above: Performed By: #### C DP, LIP #### [facility] [address] [place] [address] Senior Java Software Engineer: Zafar Castillo MD Glucose Ql (U) Negative Normal NEG [facility] Comment on above: Performed By: #### C DP, LIP #### [facility] [address] [place] [address] Senior Java Software Engineer: Zafar Castillo MD Hemoglobin, Ur Negative Normal NEG [facility] Comment on above: Performed By: #### C DP, LIP #### [facility] [address] [place], [place] [phone] Senior Java Software Engineer: Zafar Castillo MD Leukocyte esterase Test strip Ql (U) Negative Normal NEG [facility] Comment on above: Performed By: #### C DP, LIP #### [facility] [address] [place], [place] 642[address]83 Senior Java Software Engineer: Zafar Castillo MD Nitrite,Ur Negative Normal NEG [facility] Comment on above: Performed By: #### C DP, LIP #### [facility] [address] [place], [place] [phone] Senior Java Software Engineer: Zafar Castillo MD pH (U) 6.0 [pH] Normal 5.0-9.0 [facility] Comment on above: Performed By: #### C DP, LIP #### [facility] [address] [place] [phone] Senior Java Software Engineer: Zafar Castillo MD Protein Ql (U) Negative Normal NEG [facility] Comment on above: Performed By: #### C DP, LIP #### [facility] [address] [place], [place] [phone] Senior Java Software Engineer: Zafar Castillo MD RBC (U) [#/Vol] None Normal 0-2 [facility] Comment on above: Performed By: #### C DP, LIP #### [facility] [address] [place], [place] [phone] Senior Java Software Engineer: Zafar Castillo MD Specific gravity (U) [Rel density] <1.005 Low 1.010-1.020 [facility] Comment on above: Performed By: #### C DP, LIP #### [facility] [address] [place], [place] [phone] Senior Java Software Engineer: Zafar Castillo MD Turbidity CLEAR Normal CLEAR [facility] Comment on above: Performed By: #### C DP, LIP #### [facility] [address] [place] [address] Senior Java Software Engineer: Zafar Castillo MD Urobilinogen,Ur Normal Normal NORM [facility] Comment on above: Performed By: #### C DP, LIP #### [facility] [address] [place] [address] Senior Java Software Engineer: Zafar Castillo MD WBC (U) [#/Vol] None Normal 0-5 [facility] Comment on above: Performed By: #### C DP, LIP #### [facility] [address] [place] [address] Senior Java Software Engineer: Zafar Castillo MD Amorphous sediment LM Ql (Urine sed) NOT REPORTED Normal [facility] Comment on above: Performed By: #### C DP, LIP #### [address] [place] [address] Senior Java Software Engineer: Zafar Castillo MD Bacteria LM.HPF (Urine sed) [#/Area] NOT REPORTED Normal [facility] Comment on above: Performed By: #### C DP, LIP #### [address] [place] [address] Senior Java Software Engineer: Zafar Castillo MD Casts LM.LPF (Urine sed) [#/Area] NOT REPORTED Normal [facility] Comment on above: Performed By: #### C DP, LIP #### [facility] [address] [place] [address] Senior Java Software Engineer: Zafar Castillo MD Comment NOT REPORTED Normal [facility] Comment on above: Performed By: #### C DP, LIP #### [facility] [address] [place] [address] Senior Java Software Engineer: Zafar Castillo MD Crystals LM Nom (Urine sed) NOT REPORTED Normal [facility] Comment on above: Performed By: #### C DP, LIP #### [facility] [address] [place], [place] [phone] Senior Java Software Engineer: Zafar Castillo MD Epithelial, Renal NOT REPORTED Normal 0 [facility] Comment on above: Performed By: #### C DP, LIP #### [facility] [address] [place] [phone] Senior Java Software Engineer: Zafar Castillo MD Mucus Strands NOT REPORTED Normal [facility] Comment on above: Performed By: #### C DP, LIP #### [facility] [address] [place], [place] [phone] Senior Java Software Engineer: Zafar Castillo MD Other Observations NOT REPORTED Normal [facility] Comment on above: Performed By: #### C DP, LIP #### [facility] [address] [place], [place] [phone] Senior Java Software Engineer: Zafar Castillo MD Trichomonas NOT REPORTED Normal [facility] Comment on above: Performed By: #### C DP, LIP #### [facility] [address] [place], [place] [id number] Senior Java Software Engineer: Zafar Castillo MD Yeast LM Ql (Urine sed) NOT REPORTED Normal [facility] Comment on above: Performed By: #### C DP, LIP #### [facility] [address] [place], [place] [id number] Senior Java Software Engineer: Zafar Castillo MD Urinalysis with Microscopico n 08-22-2019 Amorphous, UA NOT REPORTED None [facility] Bacteria, UA NOT REPORTED None [facility] Bilirubin Urine Negative NEGATIVE [facility] [place] Casts UA NOT REPORTED /LPF [facility] [place] Color, UA YELLOW YELLOW [facility] Crystals, UA NOT REPORTED None /HPF [facility] Epithelial Cells UA 2 TO 5 [facility] Glucose, Ur Negative NEGATIVE [facility] Interpretation and review of laboratory results Abnormal [facility] [place] Ketones Ql (U) Negative NEGATIVE [facility] [place] Leukocyte esterase Test strip Ql (U) Negative NEGATIVE [place] Mucus, UA NOT REPORTED None [place], [place] Nitrite, Urine Negative NEGATIVE [place], [place] Other Observations UA NOT REPORTED NOT REQ. M [place] pH, UA 6.0 [place], [place] Protein (U) [Mass/Vol] Negative NEGATIVE [place], [place] RBC (U) [#/Vol] None [facility] [place] Renal Epithelial, UA NOT REPORTED 0 /HPF [place] Specific [place], UA <1.005 [place], [place] Trichomonas, UA NOT REPORTED None [facility] [place] Turbidity UA CLEAR CLEAR [place] Urinalysis Comments NOT REPORTED [place] Urine Hgb Negative NEGATIVE [place] Urobilinogen, Urine Normal Normal [place] WBC, UA None [place] Yeast, UA NOT REPORTED None [place] - [place] CBC WITH AUTO DIFFERENTIALon 03-04-2018 Basophils Auto #/vol (Bld) 0.07 10*3/uL Invalid Interpretation Code [facility] Basophils/100 WBC Auto (Bld) 0.7 % Invalid Interpretation Code [facility] Eosinophils Auto #/vol (Bld) 0.09 10*3/uL Invalid Interpretation Code [facility] Eosinophils/100 WBC Auto (Bld) 0.9 % Invalid Interpretation Code [facility] Erythrocyte distribution width Auto Entitic volume (RBC) 12.8 % Invalid Interpretation Code 11.6 - 14.8 % [facility] Hematocrit Auto Volume Fraction (Bld) 45.0 % Invalid Interpretation Code 36 - 46 % [facility] Hemoglobin mass conc (Bld) 15.4 g/dL Invalid Interpretation Code 12 - 16 g/dL [facility] Immature granulocytes #/vol (Bld) 0.03 10*3/uL Invalid Interpretation Code [facility] Immature granulocytes/100 WBC (Bld) 0.30 % Invalid Interpretation Code [facility] Comment on above: The IG parameter is the percentage of metamyelocytes, myelocytes, and promyelocytes. Interpretation and review of laboratory results Abnormal Invalid Interpretation Code [facility] Lymphocytes Auto #/vol (Bld) 2.22 10*3/uL Invalid Interpretation Code [facility] Lymphocytes/100 WBC Auto (Bld) 21.0 % Invalid Interpretation Code [facility] MCH Auto Entitic mass (RBC) 33.6 pg Invalid Interpretation Code 26 - 34 pg [facility] MCHC Auto mass conc (RBC) 34.2 g/dL Invalid Interpretation Code 31 - 37 g/dL [facility] MCV Auto Entitic volume (RBC) 98.0 fL Invalid Interpretation Code 80 - 100 fL [facility] Monocytes Auto #/vol (Bld) 0.82 10*3/uL Invalid Interpretation Code [facility] Monocytes/100 WBC Auto (Bld) 7.8 % Invalid Interpretation Code [facility] Neutrophils Auto #/vol (Bld) 7.33 10*3/uL High [facility] Neutrophils/100 WBC Auto (Bld) 69.3 % Invalid Interpretation Code [facility] Nucleated RBC #/vol (Bld) 0.00 10*3/uL Invalid Interpretation Code [facility] Nucleated RBC/100 WBC Ratio (Bld) 0.0 % Invalid Interpretation Code [facility] Platelet mean volume Auto Entitic volume (Bld) 10.1 fL Invalid Interpretation Code 9 - 15.5 fL [facility] Platelets Auto #/vol (Bld) 254 10*3/uL Invalid Interpretation Code [facility] RBC Auto #/vol (Bld) 4.59 10*6/uL Invalid Interpretation Code [facility] WBC Auto #/vol (Bld) 10.56 10*3/uL Invalid Interpretation Code [facility] Chem 7on 03-04-2018 Anion gap 3 molar conc 15 mmol/L Invalid Interpretation Code 10 - 20 mmol/L [facility] Chloride molar conc 103 mmol/L Invalid Interpretation Code 98 - 108 mmol/L [facility] Creatinine mass conc 0.85 mg/dL Invalid Interpretation Code 0.4 - 1.1 mg/dL [facility] GFR/1.73 sq M predicted among non-blacks MDRD vol rate/area (S/P/Bld) The eGFR should be used for monitoring renal function only and not for medication dosing. Invalid Interpretation Code [facility] GFR/1.73 sq M.predicted CKD-EPI vol rate/area (S/P/Bld) 81 Invalid Interpretation Code >=60 mL/min/1.73 m2 [facility] Glucose mass conc 92 mg/dL Invalid Interpretation Code 65 - 99 mg/dL [facility] HCO3 molar conc 25 mmol/L Invalid Interpretation Code 21 - 32 mmol/L [facility] Potassium molar conc 4.4 mmol/L Invalid Interpretation Code 3.5 - 5.1 mmol/L [facility] Sodium molar conc 139 mmol/L Invalid Interpretation Code 135 - 145 mmol/L [facility] Urea nitrogen mass conc 7 mg/dL Low 8 - 25 mg/dL [facility] Urea nitrogen/Creatinine mass ratio 8.2 mg/mg Low [facility] Hepatic Function Panel (LFT) on 03-04-2018 Albumin mass conc 4.5 g/dL Invalid Interpretation Code 3.2 - 5.2 g/dL [facility] ALP enzyme act/vol 97 U/L Invalid Interpretation Code 40 - 150 U/L [facility] ALT enzyme act/vol 9 U/L Invalid Interpretation Code 0 - 40 U/L [facility] AST enzyme act/vol 15 U/L Invalid Interpretation Code 0 - 45 U/L [facility] Bilirubin mass conc mg/dL Invalid Interpretation Code 0 - 1.3 mg/dL [facility] Bilirubin.conjugated mass conc mg/dL Invalid Interpretation Code 0 - 0.4 mg/dL [facility] Interpretation and review of laboratory results Normal Invalid Interpretation Code [facility] Protein mass conc 7.2 g/dL Invalid Interpretation Code 6 - 8 g/dL [facility] Lipaseon 03-04-2018 Lipase enzyme act/vol 179 U/L High 15 - 65 U/L [place] [facility] Otheron 03-04-2018 Extra Tube Hold for add-ons. Invalid Interpretation Code [facility] Comment on above: Auto resulted. Interpretation and review of laboratory results Abnormal Invalid Interpretation Code [facility] URINALYSISon 03-04-2018 Bacteria Auto Ql (U) Rare Abnormal None Se en /hpf [facility] Bilirubin Ql (U) Negative Invalid Interpretation Code Negative [facility] Clarity Refractometry automated Nom (U) Clear Invalid Interpretation Code Clear [facility] Color Auto Nom (U) Colorless Invalid Interpretation Code Colorless, Yellow [facility] Epithelial cells.squamous Auto #/area (Urine sed) 1 Invalid Interpretation Code [facility] Glucose Automated test strip mass conc (U) Negative Invalid Interpretation Code Negative mg/dL [facility] Hemoglobin Automated test strip Ql (U) Negative Invalid Interpretation Code Negative [facility] Interpretation and review of laboratory results Abnormal Invalid Interpretation Code [facility] Ketones mass conc (U) Negative Invalid Interpretation Code Negative mg/dL [facility] Leukocyte esterase Automated test strip Ql (U) Negative Invalid Interpretation Code Negative [facility] Nitrite Automated test strip Ql (U) Negative Invalid Interpretation Code Negative [facility] pH Test strip (U) 7.0 [pH] Invalid Interpretation Code [facility] Protein mass conc (U) Negative Invalid Interpretation Code Negative mg/dL [facility] RBC Auto #/area (Urine sed) 2 Invalid Interpretation Code [facility] Specific gravity Automated test strip Relative Density (U) 1.004 Low [facility] Urobilinogen Test strip Qn (U) <2.0 Invalid Interpretation Code <2.0 mg/dL [facility] WBC Auto #/area (Urine sed) <1 Invalid Interpretation Code [facility] Microscopic examination is performed on all urinalysis samples and only positive findings are reported. The test for blood on the chemical analytic portion of urinalysis may also be positive due to hemoglobinuria and myoglobinuria and if red blood cells are present they are quantified by microscopic examination. Invalid Interpretation Code [facility] BMPon 08-24-2017 Anion gap 18 mmol/L Invalid Interpretation Code 10 - 20 mmol/L [facility] Bicarbonate (HCO3) 27 mmol/L Invalid Interpretation Code 21 - 32 mmol/L [facility] BUN/Creatinine Ratio 10.1 mg/mg Invalid Interpretation Code 10.0 - 20.0 [facility] Calcium 10.6 mg/dL High 8.4 - 10.2 mg/dL [facility] Chloride 101 mmol/L Invalid Interpretation Code 98 - 108 mmol/L [facility] Creatinine 0.69 mg/dL Invalid Interpretation Code 0.4 - 1.1 mg/dL [facility] eGFR (non-black) 103 mL/min/{1.73_m2} Invalid Interpretation Code >=60 [facility] eGFR (non-black) The eGFR should be used for monitoring renal function only and not for medication dosing. Invalid Interpretation Code [facility] Glucose mass conc 105 mg/dL High 65 - 99 mg/dL [facility] Interpretation and review of laboratory results Abnormal Invalid Interpretation Code [facility] Potassium molar conc 4.1 mmol/L Invalid Interpretation Code 3.5 - 5.1 mmol/L [facility] Sodium 142 mmol/L Invalid Interpretation Code 135 - 145 mmol/L [facility] Urea nitrogen 7 mg/dL Low 8 - 25 mg/dL [facility] CBC Auto Differentialon 08-07 Basophils Auto #/vol (Bld) 0.08 K/mcL Invalid Interpretation Code 0.00 - 0.30 [facility] Basophils/100 WBC Auto (Bld) 0.6 % Invalid Interpretation Code [facility] Eosinophils 0.05 K/mcL Invalid Interpretation Code 0.00 - 0.50 [facility] Eosinophils/100 leukocytes 0.4 % Invalid Interpretation Code [facility] Erythrocyte distribution width Auto Entitic volume (RBC) 12.2 % Invalid Interpretation Code 11.6 - 14.8 % [facility] Erythrocytes (RBC) 4.60 M/mcL Invalid Interpretation Code 4.00 - 5.20 [facility] Hematocrit (HCT) 43.4 % Invalid Interpretation Code 36 - 46 % [facility] Hemoglobin mass conc (Bld) 15.2 g/dL Invalid Interpretation Code 12 - 16 g/dL [facility] Immature granulocytes #/vol (Bld) 0.05 K/mcL Invalid Interpretation Code 0.00 - 0.30 [facility] Immature granulocytes/100 WBC (Bld) 0.40 % Invalid Interpretation Code [facility] Comment on above: The IG parameter is the percentage of metamyelocytes, myelocytes, and promyelocytes. Lymphocytes 2.40 K/mcL Invalid Interpretation Code 0.90 - 4.00 [facility] Lymphocytes/100 leukocytes 18.1 % Invalid Interpretation Code [facility] MCH 33.0 pg Invalid Interpretation Code 26 - 34 pg [facility] MCHC mass conc (RBC) 35.0 g/dL Invalid Interpretation Code 31 - 37 g/dL [facility] MCV 94.3 fL Invalid Interpretation Code 80 - 100 fL [facility] Monocytes 0.85 K/mcL Invalid Interpretation Code 0.30 - 0.90 [facility] Monocytes/100 leukocytes 6.4 % Invalid Interpretation Code [facility] Neutrophils 9.81 K/mcL High 1.70 - 7.00 [facility] Neutrophils/100 WBC Auto (Bld) 74.1 % Invalid Interpretation Code [facility] Nucleated erythrocytes 0.00 K/mcL Invalid Interpretation Code 0.00 - 0.00 [facility] Nucleated erythrocytes/100 erythrocytes 0.0 % Invalid Interpretation Code [facility] Platelet mean volume (PMV) 10.0 fL Invalid Interpretation Code 9 - 15.5 fL [facility] Platelets 242 K/mcL Invalid Interpretation Code 150 - 400 [facility] WBC (Leukocytes) 13.24 K/mcL High 4.50 - 11.00 [facility] CBC w/ Diffon 08-24-2017 Creatinine The following orders were created for panel order CBC w/ Diff. Procedure Abnormality Status --------- ------ CBC Auto Differential[[id number] ] Abnormal Final result Please view results for these tests on the individual orders. Invalid Interpretation Code [facility] CT ABDOMEN PELVIS WITH IV CO NTRAST ONLYon 08-24-2017 CT ABDOMEN PELVIS WITH IV CONTRAST ONLY EXAMINATION:CT ABDOMEN PELVIS WITH IV CONTRAST ONLYHISTORY:ORDERING SYSTEM PROVIDED HISTORY: abd pain, hx pancreatitis, TECHNOLOGIST PROVIDED HISTORY: Reason for exam: abd painIllness/OtherEncou nter Type: Subsequent/Follow-upAd ditional signs and symptoms: chronic pancreatitisORDERING SYSTEM PROVIDED DIAGNOSIS CODES:Abdominal pain. History pancreatitis.COMPARISO N:CT of the abdomen and pelvis 05/14/2017.TECHNIQUE:D ose reduction techniques were achieved by using automated exposure control and/or adjustment of mA and/or kV according to patient size and/or use of iterative reconstruction technique. Helical CT of the abdomen and pelvis was performed using 75 mL Isovue-370 IV.FINDINGS:ABDOMEN: Visualized lung bases demonstrate mild dependent atelectasis. There is a very small sliding hiatus hernia suggested. There is evidence of prior cholecystectomy. Central bile ducts are mildly prominent, unchanged. No focal liver lesions are seen. Spleen is normal in size. The pancreas is unremarkable. There is a left adrenal nodule versus nodular hyperplasia. This measures 10 mm on series 3, image 19 and demonstrated a prominent signal loss on [id number] images on MRI performed 09/06/2014, compatible with a lipid-rich adenoma. Adrenal glands appear mildly thickened otherwise, likely due to hyperplasia. The kidneys are unremarkable. There is no evidence of retroperitoneal or mesenteric lymphadenopathy. There is mild fluid distention of small bowel loops fairly diffusely. There is moderate fluid feces in the colon. Much of the left colon is collapsed, accentuating the wall thickness. No focal thickening or inflammation is seen. The appendix appears normal and is to the left of midline in the pelvis.PELVIS: The urinary bladder is partially collapsed and otherwise unremarkable. The uterus appears to be absent. Left ovary is a identified. Right ovary is possibly present adjacent to bowel loops in the lateral anterior right pelvis. There is no evidence of significant free pelvic fluid. There is mild atherosclerotic plaque in the aorta. Bone windows demonstrate no suspicious focal osseous lesions.IMPRESSION:1. Mild fluid distention of small bowel loops may represent a nonspecific enteritis. There is also fluid feces in the colon suggesting diarrhea. Much of the left colon is collapsed, which accentuates the wall thickness and a mild nonspecific colitis would be difficult to exclude.2. No focal inflammatory process is seen. Normal appendix.3. Status post cholecystectomy with unchanged central biliary ductal prominence.4. Status post hysterectomy. The ovaries probably remain.5. Small left adrenal adenoma.JRS/gesWorksta tion ID: [id number] by: PONCHO GALAVIZ on ThuAug 24, 2017 3:53:38 PM EDTTranscribed by: RON COATES on ThuAug 24, 2017 4:00:38 PM EDTFinalized by: PONCHO GALAVIZ on ThuAug 24, 2017 4:03:34 PM EDT Normal [facility] Comment on above: Order Comment: Reaso n for exam?:abd painInjury/Trauma or Illness?:Illness/OtherHow long have you had these symptoms (acute/chronic)?:ChronicType of Exam?:Subsequent/Follow-upAdditional signs and symptoms?:chronic pancreatitis CT Abdomen Pelvis With IV Co ntrast Onlyon 08-24-2017 CT Abdomen Pelvis With IV Contrast Only Interface, Rad In [employer] Speech[employer] - 08/24/2017 4:06 PM EDT EXAMINATION: CT ABDOMEN PELVIS WITH IV CONTRAST ONLY HISTORY: ORDERING SYSTEM PROVIDED HISTORY: abd pain, hx pancreatitis, TECHNOLOGIST PROVIDED HISTORY: Reason for exam: abd pain Illness/Other Encounter Type: Subsequent/Follow-up Additional signs and symptoms: chronic pancreatitis ORDERING SYSTEM PROVIDED DIAGNOSIS CODES: Abdominal pain. History pancreatitis. COMPARISON: CT of the abdomen and pelvis 05/14/2017. TECHNIQUE: Dose reduction techniques were achieved by using automated exposure control and/or adjustment of mA and/or kV according to patient size and/or use of iterative reconstruction technique. Helical CT of the abdomen and pelvis was performed using 75 mL Isovue-370 IV. FINDINGS: ABDOMEN: Visualized lung bases demonstrate mild dependent atelectasis. There is a very small sliding hiatus hernia suggested. There is evidence of prior cholecystectomy. Central bile ducts are mildly prominent, unchanged. No focal liver lesions are seen. Spleen is normal in size. The pancreas is unremarkable. There is a left adrenal nodule versus nodular hyperplasia. This measures 10 mm on series 3, image 19 and demonstrated a prominent signal loss on [id number] images on MRI performed 09/06/2014, compatible with a lipid-rich adenoma. Adrenal glands appear mildly thickened otherwise, likely due to hyperplasia. The kidneys are unremarkable. There is no evidence of retroperitoneal or mesenteric lymphadenopathy. There is mild fluid distention of small bowel loops fairly diffusely. There is moderate fluid feces in the colon. Much of the left colon is collapsed, accentuating the wall thickness. No focal thickening or inflammation is seen. The appendix appears normal and is to the left of midline in the pelvis. PELVIS: The urinary bladder is partially collapsed and otherwise unremarkable. The uterus appears to be absent. Left ovary is a identified. Right ovary is possibly present adjacent to bowel loops in the lateral anterior right pelvis. There is no evidence of significant free pelvic fluid. There is mild atherosclerotic plaque in the aorta. Bone windows demonstrate no suspicious focal osseous lesions. IMPRESSION: 1. Mild fluid distention of small bowel loops may represent a nonspecific enteritis. There is also fluid feces in the colon suggesting diarrhea. Much of the left colon is collapsed, which accentuates the wall thickness and a mild nonspecific colitis would be difficult to exclude. 2. No focal inflammatory process is seen. Normal appendix. 3. Status post cholecystectomy with unchanged central biliary ductal prominence. 4. Status post hysterectomy. The ovaries probably remain. 5. Small left adrenal adenoma. [employer] Workstation ID: [id number] Invalid Interpretation Code [facility] [employer] [facility] CT Abdomen Pelvis With IV Contrast Only EXAMINATION: CT ABDOMEN PELVIS WITH IV CONTRAST ONLY HISTORY: ORDERING SYSTEM PROVIDED HISTORY: abd pain, hx pancreatitis, TECHNOLOGIST PROVIDED HISTORY: Reason for exam: abd pain Illness/Other Encounter Type: Subsequent/Follow-up Additional signs and symptoms: chronic pancreatitis ORDERING SYSTEM PROVIDED DIAGNOSIS CODES: Abdominal pain. History pancreatitis. COMPARISON: CT of the abdomen and pelvis 05/14/2017. TECHNIQUE: Dose reduction techniques were achieved by using automated exposure control and/or adjustment of mA and/or kV according to patient size and/or use of iterative reconstruction technique. Helical CT of the abdomen and pelvis was performed using 75 mL Isovue-370 IV. FINDINGS: ABDOMEN: Visualized lung bases demonstrate mild dependent atelectasis. There is a very small sliding hiatus hernia suggested. There is evidence of prior cholecystectomy. Central bile ducts are mildly prominent, unchanged. No focal liver lesions are seen. Spleen is normal in size. The pancreas is unremarkable. There is a left adrenal nodule versus nodular hyperplasia. This measures 10 mm on series 3, image 19 and demonstrated a prominent signal loss on [id number] images on MRI performed 09/06/2014, compatible with a lipid-rich adenoma. Adrenal glands appear mildly thickened otherwise, likely due to hyperplasia. The kidneys are unremarkable. There is no evidence of retroperitoneal or mesenteric lymphadenopathy. There is mild fluid distention of small bowel loops fairly diffusely. There is moderate fluid feces in the colon. Much of the left colon is collapsed, accentuating the wall thickness. No focal thickening or inflammation is seen. The appendix appears normal and is to the left of midline in the pelvis. PELVIS: The urinary bladder is partially collapsed and otherwise unremarkable. The uterus appears to be absent. Left ovary is a identified. Right ovary is possibly present adjacent to bowel loops in the lateral anterior right pelvis. There is no evidence of significant free pelvic fluid. There is mild atherosclerotic plaque in the aorta. Bone windows demonstrate no suspicious focal osseous lesions. Invalid Interpretation Code [facility] CT Abdomen Pelvis With IV Contrast Only 1. Mild fluid distention of small bowel loops may represent a nonspecific enteritis. There is also fluid feces in the colon suggesting diarrhea. Much of the left colon is collapsed, which accentuates the wall thickness and a mild nonspecific colitis would be difficult to exclude. 2. No focal inflammatory process is seen. Normal appendix. 3. Status post cholecystectomy with unchanged central biliary ductal prominence. 4. Status post hysterectomy. The ovaries probably remain. 5. Small left adrenal adenoma. [employer] Workstation ID: [id number] Invalid Interpretation Code [facility] Hepatic Function Panel (LFT) on 08-24-2017 Alanine aminotransferase (ALT) 14 U/L Invalid Interpretation Code 0 - 40 U/L [facility] Albumin 4.7 g/dL Invalid Interpretation Code 3.2 - 5.2 g/dL [facility] Alkaline phosphatase (ALP) 91 U/L Invalid Interpretation Code 40 - 150 U/L [facility] Aspartate aminotransferase (AST) 17 U/L Invalid Interpretation Code 0 - 45 U/L [facility] Bilirubin (conjugated) mg/dL Invalid Interpretation Code 0 - 0.4 mg/dL [facility] Bilirubin (total) mg/dL Invalid Interpretation Code 0 - 1.3 mg/dL [facility] Interpretation and review of laboratory results Normal Invalid Interpretation Code [facility] Protein 7.4 g/dL Invalid Interpretation Code 6 - 8 g/dL [facility] Lactic Acid, Plasmaon 2017 Lactate 1.0 mmol/L Invalid Interpretation Code 0.6 - 2 mmol/L [facility] Light Blue Topon 08-24-2017 Extra Tube Hold for add-ons. Invalid Interpretation Code [facility] Comment on above: Auto resulted. Lipaseon 08-24-2017 Lipase 51 U/L Invalid Interpretation Code 15 - 65 U/L [facility] Babcock Topon 08-24-2017 Babcock Top Invalid Interpretation Code [facility] [place] Drawon 08-24-2017 Creatinine The following orders were created for panel order [place] Draw. Procedure Abnormality Status --------- ------ Gold Top[[id number]] Final result Light Blue Top[[id number]] Final result Babcock Top[[id number]] Final result Please view results for these tests on the individual orders. Invalid Interpretation Code [facility] Urinalysison 08-24-2017 Bilirubin Ql (U) Negative Invalid Interpretation Code Negative [facility] Blood, Urine Negative Invalid Interpretation Code Negative [facility] Interpretation and review of laboratory results Abnormal Invalid Interpretation Code [facility] Nitrite, Urine Negative Invalid Interpretation Code Negative [facility] Squamous Epithelial 5 /hpf High 0 - 4 [facility] Transitional Epithelial <1 Invalid Interpretation Code 0 - 1 /hpf [facility] Urine, bacteria in sediment Rare Abnormal None Seen /hpf [facility] Urine, clarity Hazy Abnormal Clear [facility] Urine, color Yellow Invalid Interpretation Code Colorless, Yellow [facility] Urine, erythrocytes 1 /hpf Invalid Interpretation Code 0 - 3 [facility] Urine, glucose presence Negative Invalid Interpretation Code Negative mg/dL [facility] Urine, ketones presence Negative Invalid Interpretation Code Negative mg/dL [facility] Urine, leukocyte esterase presence Negative Invalid Interpretation Code Negative [facility] Urine, pH 7.0 [pH] Invalid Interpretation Code 5.0 - 7.0 [facility] Urine, protein Negative Invalid Interpretation Code Negative mg/dL [facility] Urine, specific gravity 1.006 1 Invalid Interpretation Code 1.005 - 1.025 [facility] Urine, urobilinogen <2.0 Invalid Interpretation Code <2.0 mg/dL [facility] WBCs, Urine 1 /hpf Invalid Interpretation Code 0 - 5 [facility] Urinalysis Microscopic examination is performed on all urinalysis samples and only positive findings are reported. The test for blood on the chemical analytic portion of urinalysis may also be positive due to hemoglobinuria and myoglobinuria and if red blood cells are present they are quantified by microscopic examination. Invalid Interpretation Code [facility] BMPon 06-09-2017 Anion gap 18 mmol/L Invalid Interpretation Code 10 - 20 mmol/L [facility] Bicarbonate (HCO3) 21 mmol/L Invalid Interpretation Code 21 - 32 mmol/L [facility] BUN/Creatinine Ratio 11.0 mg/mg Invalid Interpretation Code 10.0 - 20.0 [facility] Calcium 10.2 mg/dL Invalid Interpretation Code 8.4 - 10.2 mg/dL [facility] Chloride 102 mmol/L Invalid Interpretation Code 98 - 108 mmol/L [facility] Creatinine 0.73 mg/dL Invalid Interpretation Code 0.4 - 1.1 mg/dL [facility] eGFR (non-black) The eGFR should be used for monitoring renal function only and not for medication dosing. Invalid Interpretation Code [facility] eGFR (non-black) 98 mL/min/{1.73_m2} Invalid Interpretation Code >=60 [facility] Glucose 80 mg/dL Invalid Interpretation Code 65 - 99 mg/dL [facility] Potassium 4.3 mmol/L Invalid Interpretation Code 3.5 - 5.1 mmol/L [facility] Sodium 137 mmol/L Invalid Interpretation Code 135 - 145 mmol/L [facility] Urea nitrogen 8 mg/dL Invalid Interpretation Code 8 - 25 mg/dL [facility] CBC Auto Differentialon 04-0 Basophils 0.07 K/mcL Invalid Interpretation Code 0.00 - 0.30 [facility] Basophils/100 leukocytes 0.7 % Invalid Interpretation Code [facility] Eosinophils 0.10 K/mcL Invalid Interpretation Code 0.00 - 0.50 [facility] Eosinophils/100 leukocytes 1.0 % Invalid Interpretation Code [facility] Erythrocytes (RBC) 4.75 M/mcL Invalid Interpretation Code 4.00 - 5.20 [facility] Erythrocytes (RBC) 0.00 K/mcL Invalid Interpretation Code 0.00 - 0.00 [facility] Hematocrit (HCT) 46.1 % High 36 - 46 % [facility] Hemoglobin (HGB) 16.1 g/dL High 12 - 16 g/dL [facility] IG Absolute 0.02 K/mcL Invalid Interpretation Code 0.00 - 0.30 [facility] IG Percent 0.20 % Invalid Interpretation Code [facility] Lymphocytes 1.75 K/mcL Invalid Interpretation Code 0.90 - 4.00 [facility] Lymphocytes/100 leukocytes 17.9 % Invalid Interpretation Code [facility] MCH 33.9 pg Invalid Interpretation Code 26 - 34 pg [facility] MCHC 34.9 g/dL Invalid Interpretation Code 31 - 37 g/dL [facility] MCV 97.1 fL Invalid Interpretation Code 80 - 100 fL [facility] Monocytes 0.88 K/mcL Invalid Interpretation Code 0.30 - 0.90 [facility] Monocytes/100 leukocytes 9.0 % Invalid Interpretation Code [facility] Neutrophils 6.98 K/mcL Invalid Interpretation Code 1.70 - 7.00 [facility] Neutrophils/100 leukocytes 71.2 % Invalid Interpretation Code [facility] Nucleated erythrocytes/100 erythrocytes 0.0 % Invalid Interpretation Code [facility] Platelet mean volume (PMV) 10.9 fL Invalid Interpretation Code 9 - 15.5 fL [facility] Platelets 223 K/mcL Invalid Interpretation Code 150 - 400 [facility] RDW-CA 12.8 % Invalid Interpretation Code 11.6 - 14.8 % [facility] WBC (Leukocytes) 9.80 K/mcL Invalid Interpretation Code 4.50 - 11.00 [facility] Interpretation and review of laboratory results Abnormal Invalid Interpretation Code [facility] CBC w/ Diffon 06-09-2017 Creatinine The following orders were created for panel order CBC w/ Diff. Procedure Abnormality Status --------- ------ CBC Auto Differential[[id number] ] Abnormal Final result Please view results for these tests on the individual orders. Invalid Interpretation Code [facility] Hepatic Function Panel (LFT) on 06-09-2017 Alanine aminotransferase (ALT) 10 U/L Invalid Interpretation Code 0 - 40 U/L [facility] Albumin 4.4 g/dL Invalid Interpretation Code 3.2 - 5.2 g/dL [facility] Alkaline phosphatase (ALP) 89 U/L Invalid Interpretation Code 40 - 150 U/L [facility] Aspartate aminotransferase (AST) 20 U/L Invalid Interpretation Code 0 - 45 U/L [facility] Bilirubin (conjugated) mg/dL Invalid Interpretation Code 0 - 0.4 mg/dL [facility] Bilirubin (total) mg/dL Invalid Interpretation Code 0 - 1.3 mg/dL [facility] Interpretation and review of laboratory results Normal Invalid Interpretation Code [facility] Protein 7.3 g/dL Invalid Interpretation Code 6 - 8 g/dL [facility] Lipaseon 06-09-2017 Lipase 50 U/L Invalid Interpretation Code 15 - 65 U/L [facility] [place] Draw[place] 06-09-2017 Creatinine The following orders were created for panel order [place] Draw. Procedure Abnormality Status --------- ------ Urine Container[[id number]] Final result Please view results for these tests on the individual orders. Invalid Interpretation Code [facility] Urinalysison 06-09-2017 Bilirubin, Urine Negative Invalid Interpretation Code Negative [facility] Blood, Urine Negative Invalid Interpretation Code Negative [facility] Calcium Many Abnormal None Seen /hpf [facility] Mucus, Urine Rare Invalid Interpretation Code None Seen, Rare /lpf [facility] Nitrite, Urine Negative Invalid Interpretation Code Negative [facility] RBCs, Urine 1 /hpf Invalid Interpretation Code 0 - 3 [facility] Squamous Epithelial 4 /hpf Invalid Interpretation Code 0 - 4 [facility] Urine, bacteria in sediment None Seen Invalid Interpretation Code None Seen /hpf [facility] Urine, clarity Cloudy Abnormal Clear [facility] Urine, color Yellow Invalid Interpretation Code Colorless, Yellow [facility] Urine, glucose presence Negative Invalid Interpretation Code Negative mg/dL [facility] Urine, ketones presence Trace Abnormal Negative mg/dL [facility] Urine, leukocyte esterase presence Negative Invalid Interpretation Code Negative [facility] Urine, pH 5.0 [pH] Invalid Interpretation Code 5.0 - 7.0 [facility] Urine, protein Negative Invalid Interpretation Code Negative mg/dL [facility] Urine, specific gravity 1.024 1 Invalid Interpretation Code 1.005 - 1.025 [facility] Urine, urobilinogen 2.0 mg/dL Abnormal <2.0 [facility] WBCs, Urine 1 /hpf Invalid Interpretation Code 0 - 5 [facility] Urinalysis Microscopic examination is performed on all urinalysis samples and only positive findings are reported. The test for blood on the chemical analytic portion of urinalysis may also be positive due to hemoglobinuria and myoglobinuria and if red blood cells are present they are quantified by microscopic examination. Invalid Interpretation Code [facility] Urine Containeron 06-09-2017 Urine Container Invalid Interpretation Code [facility] CBCon 05-15-2017 Erythrocytes (RBC) 3.76 M/mcL Low 4.00 - 5.20 [facility] Erythrocytes (RBC) 0.00 K/mcL Invalid Interpretation Code 0.00 - 0.00 [facility] Hematocrit (HCT) 37.1 % Invalid Interpretation Code 36 - 46 % [facility] Hemoglobin (HGB) 12.4 g/dL Invalid Interpretation Code 12 - 16 g/dL [facility] MCH 33.0 pg Invalid Interpretation Code 26 - 34 pg [facility] MCHC 33.4 g/dL Invalid Interpretation Code 31 - 37 g/dL [facility] MCV 98.7 fL Invalid Interpretation Code 80 - 100 fL [facility] Nucleated erythrocytes/100 erythrocytes 0.0 % Invalid Interpretation Code [facility] Platelet mean volume (PMV) 9.9 fL Invalid Interpretation Code 9 - 15.5 fL [facility] Platelets 197 K/mcL Invalid Interpretation Code 150 - 400 [facility] RDW-CA 12.6 % Invalid Interpretation Code 11.6 - 14.8 % [facility] WBC (Leukocytes) 7.55 K/mcL Invalid Interpretation Code 4.50 - 11.00 [facility] Comprehensive Metabolic Pane demetrio 05-15-2017 Alanine aminotransferase (ALT) 9 U/L Invalid Interpretation Code 0 - 40 U/L [facility] Albumin 3.3 g/dL Invalid Interpretation Code 3.2 - 5.2 g/dL [facility] Alkaline phosphatase (ALP) 73 U/L Invalid Interpretation Code 40 - 150 U/L [facility] Anion gap 15 mmol/L Invalid Interpretation Code 10 - 20 mmol/L [facility] Aspartate aminotransferase (AST) 13 U/L Invalid Interpretation Code 0 - 45 U/L [facility] Bicarbonate (HCO3) 23 mmol/L Invalid Interpretation Code 21 - 32 mmol/L [facility] Bilirubin (total) 0.2 mg/dL Invalid Interpretation Code 0 - 1.3 mg/dL [facility] BUN/Creatinine Ratio 9.4 mg/mg Low 10.0 - 20.0 [facility] Calcium 8.4 mg/dL Invalid Interpretation Code 8.4 - 10.2 mg/dL [facility] Chloride 108 mmol/L Invalid Interpretation Code 98 - 108 mmol/L [facility] Creatinine 0.64 mg/dL Invalid Interpretation Code 0.4 - 1.1 mg/dL [facility] eGFR (non-black) The eGFR should be used for monitoring renal function only and not for medication dosing. Invalid Interpretation Code [facility] eGFR (non-black) 107 mL/min/{1.73_m2} Invalid Interpretation Code >=60 [facility] Glucose 91 mg/dL Invalid Interpretation Code 65 - 99 mg/dL [facility] Potassium 4.0 mmol/L Invalid Interpretation Code 3.5 - 5.1 mmol/L [facility] Protein 5.3 g/dL Low 6 - 8 g/dL [facility] Sodium 142 mmol/L Invalid Interpretation Code 135 - 145 mmol/L [facility] Urea nitrogen 6 mg/dL Low 8 - 25 mg/dL [facility] Lipaseon 05-15-2017 Interpretation and review of laboratory results Normal Invalid Interpretation Code [facility] Lipase 31 U/L Invalid Interpretation Code 15 - 65 U/L [facility] Lipid Panelon 05-15-2017 Cholesterol 193 mg/dL Invalid Interpretation Code 100 - 199 mg/dL [facility] Cholesterol to HDL Ratio 7.1 {ratio} Invalid Interpretation Code [facility] HDL Cholesterol 27 mg/dL Low 40 - 59 mg/dL [facility] HDL Cholesterol 166 mg/dL Invalid Interpretation Code [facility] Interpretation and review of laboratory results Abnormal Invalid Interpretation Code [facility] LDL Cholesterol 108 mg/dL Invalid Interpretation Code 10 - 130 mg/dL [facility] Triglyceride 291 mg/dL High 30 - 150 mg/dL [facility] BMPon 05-14-2017 Anion gap 18 mmol/L Invalid Interpretation Code 10 - 20 mmol/L [facility] Bicarbonate (HCO3) 25 mmol/L Invalid Interpretation Code 21 - 32 mmol/L [facility] BUN/Creatinine Ratio 11.8 mg/mg Invalid Interpretation Code 10.0 - 20.0 [facility] Calcium 10.7 mg/dL High 8.4 - 10.2 mg/dL [facility] Chloride 102 mmol/L Invalid Interpretation Code 98 - 108 mmol/L [facility] Creatinine 0.68 mg/dL Invalid Interpretation Code 0.4 - 1.1 mg/dL [facility] eGFR (non-black) The eGFR should be used for monitoring renal function only and not for medication dosing. Invalid Interpretation Code [facility] eGFR (non-black) 105 mL/min/{1.73_m2} Invalid Interpretation Code >=60 [facility] Glucose 86 mg/dL Invalid Interpretation Code 65 - 99 mg/dL [facility] Potassium 4.0 mmol/L Invalid Interpretation Code 3.5 - 5.1 mmol/L [facility] Sodium 141 mmol/L Invalid Interpretation Code 135 - 145 mmol/L [facility] Urea nitrogen 8 mg/dL Invalid Interpretation Code 8 - 25 mg/dL [facility] CBC Auto Differentialon 03-0 Basophils 0.09 K/mcL Invalid Interpretation Code 0.00 - 0.30 [facility] Basophils/100 leukocytes 0.8 % Invalid Interpretation Code [facility] Eosinophils 0.08 K/mcL Invalid Interpretation Code 0.00 - 0.50 [facility] Eosinophils/100 leukocytes 0.7 % Invalid Interpretation Code [facility] Erythrocytes (RBC) 0.00 K/mcL Invalid Interpretation Code 0.00 - 0.00 [facility] Erythrocytes (RBC) 4.96 M/mcL Invalid Interpretation Code 4.00 - 5.20 [facility] Hematocrit (HCT) 48.5 % High 36 - 46 % [facility] Hemoglobin (HGB) 16.6 g/dL High 12 - 16 g/dL [facility] IG Absolute 0.04 K/mcL Invalid Interpretation Code 0.00 - 0.30 [facility] IG Percent 0.40 % Invalid Interpretation Code [facility] Interpretation and review of laboratory results Abnormal Invalid Interpretation Code [facility] Lymphocytes 1.89 K/mcL Invalid Interpretation Code 0.90 - 4.00 [facility] Lymphocytes/100 leukocytes 17.7 % Invalid Interpretation Code [facility] MCH 33.5 pg Invalid Interpretation Code 26 - 34 pg [facility] MCHC 34.2 g/dL Invalid Interpretation Code 31 - 37 g/dL [facility] MCV 97.8 fL Invalid Interpretation Code 80 - 100 fL [facility] Monocytes 0.74 K/mcL Invalid Interpretation Code 0.30 - 0.90 [facility] Monocytes/100 leukocytes 6.9 % Invalid Interpretation Code [facility] Neutrophils 7.86 K/mcL High 1.70 - 7.00 [facility] Neutrophils/100 leukocytes 73.5 % Invalid Interpretation Code [facility] Nucleated erythrocytes/100 erythrocytes 0.0 % Invalid Interpretation Code [facility] Platelet mean volume (PMV) 9.8 fL Invalid Interpretation Code 9 - 15.5 fL [facility] Platelets 275 K/mcL Invalid Interpretation Code 150 - 400 [facility] RDW-CA 12.8 % Invalid Interpretation Code 11.6 - 14.8 % [facility] WBC (Leukocytes) 10.70 K/mcL Invalid Interpretation Code 4.50 - 11.00 [facility] CBC w/ Diffon 05-14-2017 Creatinine The following orders were created for panel order CBC w/ Diff. Procedure Abnormality Status --------- ------ CBC Auto Differential[[id number] ] Abnormal Final result Please view results for these tests on the individual orders. Invalid Interpretation Code [facility] CT ABDOMEN PELVIS WITH IV CO NTRAST ONLYon 05-14-2017 CT ABDOMEN PELVIS WITH IV CONTRAST ONLY EXAMINATION: CT ABDOMEN WITH CONTRAST AND CT PELVIS WITH CONTRAST, 05/14/2017:HISTORY:abd pain history of pancreatitis prior abdominal surgeries right lower quadrant pain as well.COMPARISON:Abdomi nal CT scan, 07/04/2016.TECHNIQUE:I V contrast enhanced axial CT imaging of the abdomen and pelvis was performed during injection of 75 mL of Isovue 370 intravenous contrast. Sagittal and coronal reconstructions are provided.Dose reduction techniques were achieved by using automated exposure control and/or adjustment of mA and/or kV according to patient size and/or use of iterative reconstruction technique.FINDINGS:CT ABDOMEN: The lung bases appear clear.Cholecystectomy clips are unchanged. The liver, pancreas, spleen, adrenal glands and kidneys appear within normal limits. The nonenhanced stomach and small bowel are unremarkable.CT PELVIS: A normal appendix is seen in the left lower pelvis on image 117. The cecum droops across midline into the left lower pelvis on image 111.The patient is status post hysterectomy. The adnexa and pelvic small bowel loops are unremarkable.There is mild wall thickening in the decompressed urinary bladder, nonspecific.No inflammatory fat stranding, free fluid, loculated fluid or free air is seen in the abdomen or pelvis. No acute osseous abnormality or suspicious bony lesion is seen. There is moderate degenerative disc disease at L1-L2 and L4-L5.IMPRESSION:1. Mild wall thickening in the largely decompressed urinary bladder, nonspecific. This may reflect bladder decompression or mild cystitis. No other potential acute findings are seen in the abdomen or pelvis to explain the patient's right lower quadrant pain.2. Status post cholecystectomy and hysterectomy, unchanged.3. Cecum drooping into the left lower pelvis, with a well visualized normal appendix in the left lower pelvis.Workstation ID: [id number] by: ERROL ANN on ThuMay 14, 2017 4:08:10 PM ESTTranscribed by: ERROL ANN on ThuMay 14, 2017 4:08:10 PM ESTFinalized by: ERROL ANN on ThuMay 14, 2017 4:08:10 PM EST Normal [facility] Comment on above: Order Comment: Reaso n for exam?:RLQ painInjury/Trauma or Illness?:Illness/OtherHow long have you had these symptoms (acute/chronic)?:AcuteType of Exam?:Subsequent/Follow-upAdditional signs and symptoms?:hx of pancreatitis CT Abdomen Pelvis With IV Co ntrast Onlyon 05-14-2017 CT Abdomen Pelvis With IV Contrast Only EXAMINATION: CT ABDOMEN WITH CONTRAST AND CT PELVIS WITH CONTRAST, 05/14/2017: HISTORY: abd pain history of pancreatitis prior abdominal surgeries right lower quadrant pain as well. COMPARISON: Abdominal CT scan, 07/04/2016. TECHNIQUE: IV contrast enhanced axial CT imaging of the abdomen and pelvis was performed during injection of 75 mL of Isovue 370 intravenous contrast. Sagittal and coronal reconstructions are provided. Dose reduction techniques were achieved by using automated exposure control and/or adjustment of mA and/or kV according to patient size and/or use of iterative reconstruction technique. FINDINGS: CT ABDOMEN: The lung bases appear clear. Cholecystectomy clips are unchanged. The liver, pancreas, spleen, adrenal glands and kidneys appear within normal limits. The nonenhanced stomach and small bowel are unremarkable. CT PELVIS: A normal appendix is seen in the left lower pelvis on image 117. The cecum droops across midline into the left lower pelvis on image 111. The patient is status post hysterectomy. The adnexa and pelvic small bowel loops are unremarkable. There is mild wall thickening in the decompressed urinary bladder, nonspecific. No inflammatory fat stranding, free fluid, loculated fluid or free air is seen in the abdomen or pelvis. No acute osseous abnormality or suspicious bony lesion is seen. There is moderate degenerative disc disease at L1-L2 and L4-L5. Invalid Interpretation Code [facility] CT Abdomen Pelvis With IV Contrast Only Interface, Rad In Userscoutq - 05/14/2017 4:10 PM EST EXAMINATION: CT ABDOMEN WITH CONTRAST AND CT PELVIS WITH CONTRAST, 05/14/2017: HISTORY: abd pain history of pancreatitis prior abdominal surgeries right lower quadrant pain as well. COMPARISON: Abdominal CT scan, 07/04/2016. TECHNIQUE: IV contrast enhanced axial CT imaging of the abdomen and pelvis was performed during injection of 75 mL of Isovue 370 intravenous contrast. Sagittal and coronal reconstructions are provided. Dose reduction techniques were achieved by using automated exposure control and/or adjustment of mA and/or kV according to patient size and/or use of iterative reconstruction technique. FINDINGS: CT ABDOMEN: The lung bases appear clear. Cholecystectomy clips are unchanged. The liver, pancreas, spleen, adrenal glands and kidneys appear within normal limits. The nonenhanced stomach and small bowel are unremarkable. CT PELVIS: A normal appendix is seen in the left lower pelvis on image 117. The cecum droops across midline into the left lower pelvis on image 111. The patient is status post hysterectomy. The adnexa and pelvic small bowel loops are unremarkable. There is mild wall thickening in the decompressed urinary bladder, nonspecific. No inflammatory fat stranding, free fluid, loculated fluid or free air is seen in the abdomen or pelvis. No acute osseous abnormality or suspicious bony lesion is seen. There is moderate degenerative disc disease at L1-L2 and L4-L5. IMPRESSION: 1. Mild wall thickening in the largely decompressed urinary bladder, nonspecific. This may reflect bladder decompression or mild cystitis. No other potential acute findings are seen in the abdomen or pelvis to explain the patient's right lower quadrant pain. 2. Status post cholecystectomy and hysterectomy, unchanged. 3. Cecum drooping into the left lower pelvis, with a well visualized normal appendix in the left lower pelvis. Workstation ID: [id number] Invalid Interpretation Code [facility] CT Abdomen Pelvis With IV Contrast Only 1. Mild wall thickening in the largely decompressed urinary bladder, nonspecific. This may reflect bladder decompression or mild cystitis. No other potential acute findings are seen in the abdomen or pelvis to explain the patient's right lower quadrant pain. 2. Status post cholecystectomy and hysterectomy, unchanged. 3. Cecum drooping into the left lower pelvis, with a well visualized normal appendix in the left lower pelvis. Workstation ID: [id number] Invalid Interpretation Code [facility] Ruff Topon 05-14-2017 Extra Tube Hold for add-ons. Invalid Interpretation Code [facility] Hepatic Function Panel (LFT) on 05-14-2017 Alanine aminotransferase (ALT) 13 U/L Invalid Interpretation Code 0 - 40 U/L [facility] Albumin 4.8 g/dL Invalid Interpretation Code 3.2 - 5.2 g/dL [facility] Alkaline phosphatase (ALP) 102 U/L Invalid Interpretation Code 40 - 150 U/L [facility] Aspartate aminotransferase (AST) 20 U/L Invalid Interpretation Code 0 - 45 U/L [facility] Bilirubin (conjugated) mg/dL Invalid Interpretation Code 0 - 0.4 mg/dL [facility] Bilirubin (total) 0.2 mg/dL Invalid Interpretation Code 0 - 1.3 mg/dL [facility] Interpretation and review of laboratory results Normal Invalid Interpretation Code [facility] Protein 7.9 g/dL Invalid Interpretation Code 6 - 8 g/dL [facility] Lipaseon 05-14-2017 Lipase 137 U/L High 15 - 65 U/L [facility] Babcock Topon 05-14-2017 Babcock Top Invalid Interpretation Code [facility] [place] Drawon 05-14-2017 Creatinine The following orders were created for panel order [place] [facility]. Procedure Abnormality Status --------- ------ Gold Top[[id number]] Final result Light Blue Top[[id number]] Final result Ruff Top[[id number]] Final result Babcock Top[[id number]] Final result Please view results for these tests on the individual orders. Invalid Interpretation Code [facility] Urinalysison 05-14-2017 Bilirubin, Urine Negative Invalid Interpretation Code Negative [facility] Blood, Urine Negative Invalid Interpretation Code Negative [facility] Interpretation and review of laboratory results Abnormal Invalid Interpretation Code [facility] Mucus, Urine Rare Invalid Interpretation Code None Seen, Rare /lpf [facility] Nitrite, Urine Negative Invalid Interpretation Code Negative [facility] RBCs, Urine 2 /hpf Invalid Interpretation Code 0 - 3 [facility] Squamous Epithelial 3 /hpf Invalid Interpretation Code 0 - 4 [facility] Urine, bacteria in sediment Rare Abnormal None Seen /hpf [facility] Urine, clarity Clear Invalid Interpretation Code Clear [facility] Urine, color Yellow Invalid Interpretation Code Colorless, Yellow [facility] Urine, glucose presence Negative Invalid Interpretation Code Negative mg/dL [facility] Urine, ketones presence Negative Invalid Interpretation Code Negative mg/dL [facility] Urine, leukocyte esterase presence Negative Invalid Interpretation Code Negative [facility] Urine, pH 5.0 [pH] Invalid Interpretation Code 5.0 - 7.0 [facility] Urine, protein Negative Invalid Interpretation Code Negative mg/dL [facility] Urine, specific gravity 1.006 1 Invalid Interpretation Code 1.005 - 1.025 [facility] Urine, urobilinogen <2.0 Invalid Interpretation Code <2.0 mg/dL [facility] WBCs, Urine 1 /hpf Invalid Interpretation Code 0 - 5 [facility] Urinalysis Microscopic examination is performed on all urinalysis samples and only positive findings are reported. The test for blood on the chemical analytic portion of urinalysis may also be positive due to hemoglobinuria and myoglobinuria and if red blood cells are present they are quantified by microscopic examination. Invalid Interpretation Code [facility] Vital Signs Date Time Vital Sign Value Performing Clinician Facility 11-09-2022 16:30-0400 Diastolic blood pressure 81 mm[Hg] [facility] 11-09-2022 16:30-0400 Heart rate 78 /min [facility] 11-09-2022 16:30-0400 Respiratory rate 18 /min [facility] 11-09-2022 16:30-0400 SaO2% (BldA) [Mass fraction] 99 % [facility] 11-09-2022 16:30-0400 Systolic blood pressure 141 mm[Hg] [facility] 11-09-2022 13:47-0400 Body height 160.02 cm [facility] 11-09-2022 13:47-0400 Body temperature 98.2 [degF] [facility] 11-09-2022 13:47-0400 Body weight 54.2 kg [facility] 08-12-2022 13:15-0400 Diastolic blood pressure 68 mm[Hg] Sabrina Dee MD, MPH Work Phone: [facility] 08-12-2022 13:15-0400 Heart rate 67 /min Sabrina Dee MD, MPH Work Phone: [facility] 08-12-2022 13:15-0400 Respiratory rate 22 /min Sabrina Dee MD, MPH Work Phone: [facility] 08-12-2022 13:15-0400 SaO2% (BldA) [Mass fraction] 99 % Sabrina Dee MD, MPH Work Phone: [facility] 08-12-2022 13:15-0400 Systolic blood pressure 142 mm[Hg] Sabrina Dee MD, MPH Work Phone: [facility] 08-12-2022 11:45-0400 Body temperature 97.81 [degF] Sabrina Dee MD, MPH Work Phone: [facility] 08-12-2022 10:34-0400 Body height 157.5 cm Sabrina Dee MD, MPH Work Phone: [facility] 06-16-2022 10:52-0400 Body mass index (BMI) [Ratio] 23.41 kg/m2 Sabrina Dee MD, MPH Work Phone: [facility] 06-16-2022 10:52-0400 Body weight 58.06 kg Sabrina Dee MD, MPH Work Phone: [facility] 06-16-2022 10:52-0400 Diastolic blood pressure 68 mm[Hg] Sabrina Dee MD, MPH Work Phone: [facility] 06-16-2022 10:52-0400 Heart rate 83 /min Sabrina Dee MD, MPH Work Phone: [facility] 06-16-2022 10:52-0400 SaO2% (BldA) [Mass fraction] 98 % Sabrina Dee MD, MPH Work Phone: [facility] 06-16-2022 10:52-0400 Systolic blood pressure 122 mm[Hg] Sabrina Dee MD, MPH Work Phone: [facility] 03-22-2022 16:51-0500 Diastolic blood pressure 61 mm[Hg] [facility] 03-22-2022 16:51-0500 Heart rate 98 /min [facility] 03-22-2022 16:51-0500 Respiratory rate 20 /min [facility] 03-22-2022 16:51-0500 SaO2% (BldA) [Mass fraction] 98 % [facility] 03-22-2022 16:51-0500 Systolic blood pressure 149 mm[Hg] [facility] 03-22-2022 14:59-0500 Body height 157.48 cm [facility] 03-22-2022 14:59-0500 Body temperature 97.9 [degF] [facility] 03-22-2022 14:59-0500 Body weight 56 kg [facility] 12-16-2021 11:53-0400 Body height 157.5 cm Sabrina Dee MD, MPH Work Phone: [facility] 12-16-2021 11:53-0400 Body mass index (BMI) [Ratio] 22.5 kg/m2 Sabrina Dee MD, MPH Work Phone: [facility] 12-16-2021 11:53-0400 Body weight 55.79 kg Sabrina Dee MD, MPH Work Phone: [facility] 12-16-2021 11:53-0400 Diastolic blood pressure 72 mm[Hg] Sabrina Dee MD, MPH Work Phone: [facility] 12-16-2021 11:53-0400 Heart rate 80 /min Sabrina Dee MD, MPH Work Phone: [facility] 12-16-2021 11:53-0400 SaO2% (BldA) [Mass fraction] 98 % Sabrina Dee MD, MPH Work Phone: [facility] 12-16-2021 11:53-0400 Systolic blood pressure 118 mm[Hg] Sabrina Dee MD, MPH Work Phone: [facility] 10-09-2021 20:00-0400 Body temperature 98.3 [degF] [facility] 10-09-2021 20:00-0400 Diastolic blood pressure 68 mm[Hg] [facility] 10-09-2021 20:00-0400 Heart rate 86 /min [facility] 10-09-2021 20:00-0400 Respiratory rate 20 /min [facility] 10-09-2021 20:00-0400 SaO2% (BldA) [Mass fraction] 100 % [facility] 10-09-2021 20:00-0400 Systolic blood pressure 110 mm[Hg] [facility] 10-09-2021 14:19-0400 Body height 157.48 cm [facility] 10-09-2021 14:19-0400 Body weight 56.69 kg [facility] 10-04-2021 19:00-0400 Diastolic blood pressure 66 mm[Hg] [facility] 10-04-2021 19:00-0400 Heart rate 72 /min [facility] 10-04-2021 19:00-0400 Respiratory rate 16 /min [facility] 10-04-2021 19:00-0400 SaO2% (BldA) [Mass fraction] 96 % [facility] 10-04-2021 19:00-0400 Systolic blood pressure 110 mm[Hg] [facility] 10-04-2021 15:16-0400 Body temperature 97.9 [degF] [facility] 10-04-2021 15:15-0400 Body height 157.48 cm [facility] 10-04-2021 15:15-0400 Body weight 54.5 kg [facility] 09-25-2021 19:58-0400 Heart rate 82 /min [facility] 09-25-2021 18:04-0400 Body temperature 98.1 [degF] [facility] 09-25-2021 18:00-0400 Body height 157.48 cm [facility] 09-25-2021 18:00-0400 Body weight 55.5 kg [facility] 09-25-2021 18:00-0400 Diastolic blood pressure 107 mm[Hg] [facility] 09-25-2021 18:00-0400 Respiratory rate 18 /min [facility] 09-25-2021 18:00-0400 SaO2% (BldA) [Mass fraction] 98 % [facility] 09-25-2021 18:00-0400 Systolic blood pressure 141 mm[Hg] [facility] 08-11-2021 18:12-0400 Heart rate 86 /min [facility] 08-11-2021 18:00-0400 Diastolic blood pressure 69 mm[Hg] [facility] 08-11-2021 18:00-0400 Respiratory rate 20 /min [facility] 08-11-2021 18:00-0400 SaO2% (BldA) [Mass fraction] 98 % [facility] 08-11-2021 18:00-0400 Systolic blood pressure 114 mm[Hg] [facility] 08-11-2021 16:06-0400 Body height 170.18 cm [facility] 08-11-2021 16:06-0400 Body mass index (BMI) [Ratio] 19.6 kg/m2 [facility] 08-11-2021 16:06-0400 Body temperature 97.9 [degF] [facility] 08-11-2021 16:06-0400 Body weight 57 kg [facility] 03-19-2021 14:30-0500 Body height 157.48 cm Marya Ginty Other [facility] [employer] Other 03-19-2021 14:30-0500 Body mass index (BMI) [Ratio] 24.69 kg/m2 Marya Ginty Other [employer] Other 03-19-2021 14:30-0500 Body temperature 96 [degF] Marya Ginty Other [employer] Other 03-19-2021 14:30-0500 Body weight 61.24 kg Marya Ginty Other [employer] Other 03-19-2021 14:30-0500 Respiratory rate 63 /min Marya Ginty Other [employer] Other 03-19-2021 14:30-0500 SaO2% (BldA) [Mass fraction] 97 % Marya Almonte Other [employer] Other 03-26-2020 21:05-0500 Pulse Oximetry 100 % [facility] [place] 03-26-2020 21:01-0500 BP Diastolic 68 mm[Hg] [facility] [place] 03-26-2020 21:01-0500 BP Systolic 152 mm[Hg] [facility] [place] 03-26-2020 17:32-0500 BMI (Body Mass Index) 22.86 kg/m2 [facility], [place] 03-26-2020 17:32-0500 Body weight 56.7 kg [facility] [place] 03-26-2020 17:32-0500 Height 157.5 cm [place], [place] 03-26-2020 17:32-0500 Pulse (Heart Rate) 90 /min [facility], [place] 03-26-2020 17:32-0500 Respiratory Rate 18 /min [facility] [place] 03-26-2020 12:39-0500 Body Temperature 98.71 [degF] [facility] [place] 08-25-2019 08:30-0400 Body Temperature 98.01 [degF] Rajeev [facility] [employer] [place] 08-25-2019 08:30-0400 BP Diastolic 75 mm[Hg] [facility] [place] 08-25-2019 08:30-0400 BP Systolic 117 mm[Hg] Rajeev [facility] , [place] 08-25-2019 08:30-0400 Pulse (Heart Rate) 84 /min [facility] [place] 08-25-2019 08:30-0400 Pulse Oximetry 97 % Rajeev [facility] , [place] 08-25-2019 08:30-0400 Respiratory Rate 16 /min Rajeev [facility] [employer] [place] 08-25-2019 05:30-0400 BMI (Body Mass Index) 25.88 kg/m2 Rajeev [facility], [place] 08-25-2019 05:30-0400 Body weight 64.18 kg Rajeev Tinoco [place], [place] 08-22-2019 16:00-0400 Height 157.5 cm [facility] [place] [place] 03-04-2018 13:09-0500 BP Diastolic 69 mm[Hg] [facility] 03-04-2018 13:09-0500 BP Systolic 108 mm[Hg] [facility] 03-04-2018 13:09-0500 Pulse (Heart Rate) 79 /min [facility] 03-04-2018 13:09-0500 Pulse Oximetry 99 % [facility] 03-04-2018 13:09-0500 Respiratory Rate 16 /min [facility] 03-04-2018 11:01-0500 BMI (Body Mass Index) 22.86 kg/m2 [facility] 03-04-2018 11:01-0500 Body Temperature 98.6 [degF] [facility] 03-04-2018 11:01-0500 Height 157.5 cm [facility] 03-04-2018 11:01-0500 Weight 56.7 kg [facility] 08-24-2017 20:58-0400 BP Diastolic 64 mm[Hg] Errol [facility] 08-24-2017 20:58-0400 BP Systolic 126 mm[Hg] [facility] 08-24-2017 20:58-0400 Pulse (Heart Rate) 67 /min Errol [facility] 08-24-2017 20:58-0400 Pulse Oximetry 98 % [facility] 08-24-2017 20:58-0400 Respiratory Rate 18 /min [facility] 08-24-2017 13:41-0400 BMI (Body Mass Index) 21.58 kg/m2 [facility] 08-24-2017 13:41-0400 Body Temperature 98.29 [degF] [facility] 08-24-2017 13:41-0400 Height 157.5 cm Errol [facility] 08-24-2017 13:41-0400 Weight 53.52 kg Errol Walton [facility] 06-09-2017 09:32-0400 BP Diastolic 73 mm[Hg] Joana Mendes [facility] 06-09-2017 09:32-0400 BP Systolic 106 mm[Hg] Joana Vaughn [facility] 06-09-2017 09:32-0400 Pulse (Heart Rate) 86 /min Joana Vaughn [facility] 06-09-2017 09:32-0400 Pulse Oximetry 99 % Joana Vaughn [facility] 06-09-2017 09:32-0400 Respiratory Rate 16 /min Joana Vaughn [facility] 06-09-2017 07:20-0400 BMI (Body Mass Index) 21.87 kg/m2 Joana [facility] 06-09-2017 07:20-0400 Body Temperature 98.4 [degF] Joana Vaughn [facility] 06-09-2017 07:20-0400 Height 157.5 cm Joana Vaughn [facility] 06-09-2017 07:20-0400 Weight 54.23 kg Joana [facility] 05-15-2017 08:11-0500 Body Temperature 98.01 [degF] David Paige [facility] 05-15-2017 08:11-0500 BP Diastolic 69 mm[Hg] David [facility] 05-15-2017 08:11-0500 BP Systolic 116 mm[Hg] David [facility] 05-15-2017 08:11-0500 Pulse (Heart Rate) 76 /min David [facility] 05-15-2017 08:11-0500 Pulse Oximetry 95 % David [facility] 05-15-2017 08:11-0500 Respiratory Rate 15 /min David Paige [facility] 05-14-2017 12:58-0500 BMI (Body Mass Index) 21.95 kg/m2 David [facility] 05-14-2017 12:58-0500 Height 157.5 cm [facility] 05-14-2017 12:58-0500 Weight 54.43 kg David [facility] Encounters Encounter Date Encounter Type Care Provider Facility Start: 11-09-2022 End: 11-09-2022 Emergency department patient visit Nicole Posadas Facility:[facility] Start: 11-09-2022 End: 11-09-2022 Emergency department patient visit [facility] Work Phone: Start: 08-12-2022 ambulatory OTHER [facility] Facility:[facility] Start: 08-12-2022 End: 08-12-2022 Subsequent hospital visit by physician Sabrina Dee MD, MPH Work Phone: [facility] Start: 06-16-2022 ambulatory [facility] Facility:[facility] Start: 06-16-2022 End: 06-16-2022 Office outpatient visit 40 minutes Sabrina Dee MD, MPH Work Phone: [facility] [place] Comment on above: Osteoporosis without current pathological fracture, unspecified osteoporosis type (Primary Dx); Alcohol-induced chronic pancreatitis Start: 06-13-2022 End: 06-13-2022 ambulatory ARIC JANUSZ . Facility:[facility] Start: 03-29-2022 End: 03-29-2022 ambulatory ELENITA ROLLINS . Facility: Start: 03-22-2022 End: 03-22-2022 Emergency department patient visit Agustin Llanes Facility:[facility] Start: 03-22-2022 End: 03-22-2022 Emergency department patient visit [facility] Work Phone: Start: 03-19-2022 End: 03-19-2022 ambulatory MONIK PARKINSON . Facility: Start: 01-28-2022 ambulatory SABRINA hamiltonty:[facility] Start: 01-28-2022 End: 01-28-2022 Subsequent hospital visit by physician Sabrina Dee MD, MPH Work Phone: [facility] Start: 01-27-2022 ambulatory [facility] Facility:[facility] Start: 01-27-2022 End: 01-27-2022 Subsequent hospital visit by physician Sabrina Dee MD, MPH Work Phone: [facility] [place] Comment on above: Arrived Start: 01-15-2022 End: 01-15-[address] HELLEN KITCHEN . Facility: Start: 12-19-2021 End: 12-19-2021 Emergency department patient visit Robb Burris Facility:[facility] Start: 12-16-2021 ambulatory [facility] Facility:[facility] Start: 12-16-2021 End: 12-16-2021 Office outpatient visit 25 minutes Sabrina Dee MD, MPH Work Phone: [facility] [place] Comment on above: Recurrent acute panc reatitis (Primary Dx); History of smoking 25-50 pack years; Alcohol-induced chronic pancreatitis; Epigastric pain; Encounter for screening colonoscopy Start: 12-13-2021 End: 12-14-2021 ambulatory NICK COY Facility:[facility] Start: 12-05-2021 End: 12-05-[address] RAJEEV COATES Facility:[facility] Start: 10-11-2021 End: 10-12-[address] RAJEEV COATES Facility:[facility] Start: 10-04-2021 End: 10-04-2021 Emergency department patient visit [facility] Start: 09-30-2021 End: 09-30-2021 ambulatory NAT MAXWELL . Facility:[facility] Start: 09-25-2021 End: 09-25-2021 Emergency department patient visit [facility] Start: 09-17-2021 End: 09-17-[address] RAJEEV COATES Facility:[facility] Start: 08-26-2021 End: 08-26-2021 ambulatory NICK COY Facility:[facility] Start: 08-22-2021 End: 08-22-[address] TRI HANSON Facility:[facility] Start: 08-13-2021 End: 08-13-2021 ambulatory AGUSTIN MADRIGAL Facility:[facility] Start: 08-11-2021 End: 08-11-2021 Emergency department patient visit [facility] Start: 07-31-2021 End: 07-31-2021 ambulatory YANNI FRASER Facility:[facility] Start: 07-19-2021 End: 07-19-2021 ambulatory LYNNE PERDOMO Facility:[facility] Start: 03-19-2021 End: 03-19-2021 ambulatory Marya Almonte Other [employer] Other Start: 03-19-2021 Office outpatient visit 15 minutes Marya Almonte [facility] Start: 05-22-2020 End: 05-22-2020 Orders Only Izabela Queen Rudy Work Phone: [facility] Start: 03-26-2020 Emergency department patient visit [facility] Start: 03-26-2020 End: 03-26-2020 Emergency department patient visit [facility] ED Comment on above: Acute biliary pancre atitis, unspecified complication status (Primary Dx) Start: 08-22-2019 End: 08-25-2019 Evaluation and management of inpatient [facility] Start: 08-22-2019 End: 08-25-2019 Evaluation and management of inpatient Rajeev Rudy [facility] Work Phone: [facility] Comment on above: Acute pancreatitis, unspecified complication status, unspecified pancreatitis type (Primary Dx); Pain of upper abdomen Start: 03-08-2018 End: 03-09-2018 Evaluation and management of inpatient [facility] Start: 03-04-2018 End: 03-04-2018 Patient encounter procedure [facility] Start: 03-04-2018 End: 03-04-2018 Emergency department patient visit Keerthi Britoon Work Phone: [phone] [place] [address] Emergency Department Comment on above: Acute on chronic see creatitis (HCC) (Primary Dx) Start: 08-24-2017 End: 08-24-2017 Emergency department patient visit [facility] Start: 08-24-2017 End: 08-24-2017 Emergency department patient visit Errol Walton Work Phone: [facility] Start: 06-09-2017 End: 06-09-2017 Emergency department patient visit [facility] Start: 06-09-2017 End: 06-09-2017 Emergency department patient visit Joana Mendes Work Phone: [facility] Department Start: 05-14-2017 End: 05-15-2017 Patient encounter procedure [facility] Start: 05-14-2017 End: 05-15-2017 Emergency department patient visit David Gibson Work Phone: [facility] Medical Observation Procedures Date Procedure Procedure Detail Performing Clinician Start: 11-09-2022 Computed tomography of abdomen and pelvis with contrast Start: 08-12-2022 UPPER EUS Sabrina Dee MD, MPH Work Phone: Start: 01-28-2022 UPPER EUS Sabrina Dee MD, MPH Work Phone: Start: 01-27-2022 Dxa bone density blair dy 1/> sites axial skel Sabrina Dee MD, MPH Work Phone: Start: 10-04-2021 Computed tomography of abdomen and pelvis with contrast Start: 03-26-2020 Ct abdomen & pelvis w/contrast material Erasto Dickinson Work Phone: Start: 03-26-2020 Blood count complete auto&auto difrntl wbc Erasto Dickinson Work Phone: Start: 03-26-2020 Assay of amylase Erasto Dickinson Work Phone: Start: 03-26-2020 Assay of lipase Erasto Dickinson Work Phone: Start: 03-26-2020 Blood count complete auto&auto difrntl wbc Erasto Dickinson Work Phone: Start: 03-26-2020 Lactate [Moles/Vol] Chaitanya Dickinson Work Phone: Start: 03-26-2020 SPECIMEN REJECTION Jeffery Dickinson Work Phone: Start: 03-26-2020 Urnls dip stick/tabl et rgnt auto w/o microscopy Erasto Dickinson Work Phone: Start: 08-25-2019 DISCHARGE PATIENT RAJEEV ALEJANDRINA Start: 08-25-2019 INITIATE OXYGEN THER APY PROTOCOL RAJEEV TINOCO Start: 08-25-2019 DIET CLEAR LIQUID RAJEEV TINOCO Start: 08-25-2019 Assay of lipase Rajeev Tinoco Work Phone: Start: 08-25-2019 Blood count complete auto&auto difrntl wbc Rajeev Rudy Tinoco Work Phone: Start: 08-24-2019 INITIATE OXYGEN THER APY PROTOCOL RAJEEV TINOCO Start: 08-24-2019 Assay of lipase RAJEEV OLIVIA Start: 08-24-2019 Blood count complete auto&auto difrntl wbc RAJEEV TINOCO Start: 08-24-2019 Assay of lipase Rajeev Tinoco Work Phone: Start: 08-24-2019 Blood count complete auto&auto difrntl wbc Rajeev Tinoco Work Phone: Start: 08-23-2019 AMBULATE IN BENAVIDES RAJEEV Wallace BETTYDallin Start: 08-23-2019 INITIATE OXYGEN THER APY PROTOCOL RAJEEV TINOCO Start: 08-23-2019 Assay of lipase RAJEEV OLIVIA Start: 08-23-2019 Blood count complete auto&auto difrntl wbc RAJEEV TINOCO Start: 08-23-2019 Comprehensive metabo lic panel RAJEEV TINOCO Start: 08-23-2019 Assay of lipase Rajeev Tinoco Work Phone: Start: 08-23-2019 Blood count complete auto&auto difrntl wbc Rajeev Tinoco Work Phone: Start: 08-23-2019 Comprehensive metabo lic panel Rajeev Tinoco Work Phone: Start: 08-22-2019 INITIATE OXYGEN THER APY PROTOCOL RAJEEV TINOCO Start: 08-22-2019 IP CONSULT TO CASE MANAGEMENT RAJEEV ALEJANDRINA Start: 08-22-2019 NOTIFY PHYSICIAN (SPECIFY) RAJEEV TINOCO Start: 08-22-2019 PULSE OXIMETRY SPOT CHECK RAJEEV TINOCO Start: 08-22-2019 REASON FOR NO MECHAN ICAL VTE PROPHYLAXIS RAJEEV TINOCO Start: 08-22-2019 TELEMETRY MONITORING MA CED ALEJANDRINA Start: 08-22-2019 TOBACCO CESSATION EDUCATION RAJEEV ALEJANDRINA Start: 08-22-2019 VITAL SIGNS RAJEEV ALEJANDRINA Start: 08-22-2019 FULL CODE RAJEEV TINOCO Start: 08-22-2019 PATIENT STATUS (FROM ED OR OR/PROCEDURAL) RAJEEV ALEJANDRINA Start: 08-22-2019 Urnls dip stick/tabl et reagent auto microscopy RAJEEV ALEJANDRINA Start: 08-22-2019 Assay of lactate RAJEEV Wallace BETTYDallin Start: 08-22-2019 Assay of lipase RAJEEV OLIVIA Start: 08-22-2019 Blood count complete auto&auto difrntl wbc RAJEEV TINOCO Start: 08-22-2019 Comprehensive metabo lic panel RAJEEV TINOCO Start: 08-22-2019 INSERT PERIPHERAL IV MA CED TINOCO Start: 08-22-2019 Urnls dip stick/tabl et reagent auto microscopy Rajeev Tinoco Work Phone: Start: 08-22-2019 Assay of lactate Rajeev Tinoco Work Phone: Start: 08-22-2019 Assay of lipase Rajeev Tinoco Work Phone: Start: 08-22-2019 Blood count complete auto&auto difrntl wbc Rajeev Tinoco Work Phone: Start: 08-22-2019 Comprehensive metabo lic panel Rajeev Tinoco Work Phone: Start: 03-04-2018 End: 03-04-2018 Urinalysis Konstantin obrien Work Phone: Start: 03-04-2018 End: 03-04-2018 Basic metabolic 1998 panel - Serum or Plasma Remyjaylenherminia Horner Cathleen Work Phone: Start: 03-04-2018 End: 03-04-2018 Complete blood count with white cell differential, automated Remyjaylenherminia Horner Cathleen Work Phone: Start: 03-04-2018 End: 03-04-2018 Complete blood count with white cell differential, manual Konstantin Horner Cathleen Work Phone: Start: 03-04-2018 End: 03-04-2018 RUFF TOP Keerthi Nguyen Work Phone: Start: 03-04-2018 End: 03-04-2018 Hepatic function 2000 panel - Serum or Plasma Konstantin Evens Cathleen Work Phone: Start: 03-04-2018 End: 03-04-2018 LIGHT BLUE TOP Keerthi Nguyen Work Phone: Start: 03-04-2018 End: 03-04-2018 LIGHT GREEN TOP Keerthi Nguyen Work Phone: Start: 03-04-2018 End: 03-04-2018 Lipase [Enzymatic activity/volume] in Serum or Plasma Konstantin Connolly Work Phone: Start: 03-04-2018 End: 03-04-2018 PINK TOP HeatherLandy Nguyen Work Phone: Start: 03-04-2018 End: 03-04-2018 RAINBOW DRAW Keerthi Nguyen Work Phone: Start: 09-25-2017 Lipid 1996 panel - S erika or Plasma Sabrina Dee MD, MPH Work Phone: Start: 01-02-2012 Mammography Izabela P brody Start: 12-11-2011 Microscopic observat ion [Identifier] in Cervix by Cyto stain Keerthi Nguyen Plan of Treatment Date Care Activity Detail Author Start: 03-16-2023 End: 03-16-2023 Patient encounter procedure 03/16/2023 Office Visit Gastroenterology Sabrina Dee MD, MPH [address] [place] [address] [facility] Start: 11-07-2022 Influenza vaccination INFLUENZA VACCINE (Season Ended) [facility] Start: 09-25-2022 Lipid panel LIPID SCREENING [facility] Start: 07-29-2022 End: 06-17-2023 UPPER EUS UPPER EUS GI/Bronch Routine Alcohol-induced chronic pancreatitis Expected: 07/29/2022, Expires: 06/17/2023 [facility] Comment on above: Expected: 07/29/2022, Expires: 4 Start: 07-28-2022 End: 01-28-2023 Screening colonoscopy SCREENING COLONOSCOPY GI/Bronch Routine Encounter for screening colonoscopy Expected: 07/28/2022, Expires: 01/28/2023 [facility] Comment on above: Expected: 07/28/2022, Expires: 3 Start: 07-28-2022 End: 07-28-2022 Patient encounter procedure 07/28/2022 Appointment Endoscopy Julia Tyler MD [address] [address] [facility] Start: 06-16-2022 End: 12-16-2022 Screening colonoscopy SCREENING COLONOSCOPY GI/Bronch Routine Encounter for screening colonoscopy Expected: 06/16/2022, Expires: 12/16/2022 [facility] Comment on above: Expected: 06/16/2022, Expires: 3 Start: 06-16-2022 End: 06-16-2022 Patient encounter procedure 06/16/2022 Office Visit Gastroenterology Sabrina Dee MD, MPH [address] [place] [address] [facility] Start: 03-22-2022 Bacteria identified in Urine by Culture [facility] Start: 01-28-2022 End: 01-28-2022 Patient encounter procedure 01/28/2022 Appointment Endoscopy Sabrina Dee MD, MPH [address] [place] [address] [facility] Start: 01-28-2022 Subsequent hospital visit by physician 01/28/2022 Hospital Encounter Endoscopy Sabrina Dee MD, MPH [address] [place] [address] Arrived [facility] Comment on above: Arrived Start: 01-14-2022 End: 12-16-2022 UPPER EUS UPPER EUS GI/Bronch Routine Recurrent acute pancreatitis Expected: 01/14/2022, Expires: 12/16/2022 [facility] Comment on above: Expected: 01/14/2022, Expires: 3 Start: 12-16-2021 End: 12-16-2022 Bone density scan BONE DENSITY AXIAL (HIP, PELVIS, SPINE) Imaging Routine Recurrent acute pancreatitis History of smoking 25-50 pack years Expected: 12/16/2021, Expires: 12/16/2022 [facility] Comment on above: Expected: 12/16/2021, Expires: 3 Start: 11-07-2021 Influenza vaccination INFLUENZA VACCINE (#1) [facility] Start: 10-09-2021 CT of abdomen and pelvis without contrast CT abdomen pelvis wo [facility] Start: 10-09-2021 End: 10-09-2021 Emergency department patient visit Departed Emergency [facility] Start: 11-13-2020 COVID-19 VACCINE (3 - Booster for Pfizer series) COVID-19 VACCINE (3 - Booster for Pfizer series) [facility] Start: 11-08-2019 Influenza vaccination [place], [place] Start: 11-08-2019 Influenza vaccination given Sequential Influenza Vaccine (#1) [facility] Start: 06-21-2019 Administration of herpes zoster vaccine Zoster Vaccines (1 of 2) [facility] Start: 06-21-2019 Screening for malignant neoplasm of breast Breast cancer screen [place], [place] Start: 06-21-2019 Screening for malignant neoplasm of colon [place] Start: 06-21-2019 Screening for malignant neoplasm of lung LUNG CANCER SCREENING [facility] Start: 06-21-2019 Shingles Vaccine (1 of 2) Shingles Vaccine (1 of 2) [place] Start: 06-21-2019 Zoster vaccine hzv live for subcutaneous use ZOSTER (SHINGLES) VACCINE (1 of 2) [facility] Start: 11-07-2017 Influenza vaccination [facility] Start: 11-07-2016 Influenza vaccination SEQUENTIAL INFLUENZA VACCINE (#1) [facility] Start: 12-10-2014 Screening for malignant neoplasm of cervix PAP SMEAR [facility] Start: 2014 Screening for malignant neoplasm of colon COLORECTAL CANCER SCREENING DISCUSSION [facility] Start: 01-01-2013 Screening for malignant neoplasm of breast MAMMOGRAM SCREENING DISCUSSION [facility] Start: 01-01-2013 Screening mammography Mammogram [facility] Start: 2009 Lipid panel Lipid screen [place], [place] Start: 1990 Screening for malignant neoplasm of cervix [facility] Start: 1988 DTaP/Tdap/Td vaccine (1 - Tdap) DTaP/Tdap/Td vaccine (1 - Tdap) [place] Start: 1988 Third diphtheria, tetanus and acellular pertussis (DTaP) vaccination TDAP (ADULT) [facility] Start: 06-21-1987 Hepatitis C antibody, confirmatory test Hepatitis C Screening [facility] Start: 06-21-1987 Tetanus vaccination TETANUS [facility] Start: 1985 COVID-19 Vaccine (1 of 2) COVID-19 Vaccine (1 of 2) [facility] Start: 1984 HIV screening [facility] Start: 06-21-1975 Pneumococcal 0-64 years Vaccine (1 of 1 - PPSV23) Pneumococcal 0-64 years Vaccine (1 of 1 - PPSV23) [place] Start: 06-21-1975 PNEUMOCOCCAL VACCINE SERIES (1 - PCV) PNEUMOCOCCAL VACCINE SERIES (1 - PCV) [facility] Start: 1972 History and physical examination, annual for health maintenance Wellness Visit [facility] Start: 1969 Hepatitis B vaccination HEP B VACCINE (1 of 3 - 3-dose series) [facility] Start: 1969 Hepatitis C screening [facility] Start: 1969 Tetanus vaccination [facility] CBC auto differential CBC auto d ifferential Lab Routine Daily until discontinued starting 08/23/2019, 3 completed [place] Comment on above: Daily until discontinued starting 2019, [address] ABDOMEN PELVIS W IV CONTRAST Additional Contrast? None CT ABDOMEN PELVIS W IV CONTRAST Additional Contrast? None Imaging STAT 03/26/2020 3:01 PM EST [place] IgG Subclasses IgG Subclasses A dd-On 05/14/2017 2:06 PM EST [facility] Initiate Oxygen Therapy Protocol Initiate Oxygen Therapy Protocol Respiratory Care Routine Daily until discontinued starting 08/22/2019 [place] Comment on above: Daily until discontinued starting 2019 Lipase Lipase Lab Routi ne Daily until discontinued starting 08/23/2019, 3 completed [place] Comment on above: Daily until discontinued starting 2019, 3 completed Patient Education [facility] Work Phone: Patient referral [facility] Work Phone: End: 08-22-2019 Pulse Oximetry Spot Check Pulse Oximetry Spot Check Respiratory Care Routine One Time for 1 Occurrences starting 08/22/2019 until 08/22/2019 [facility] [place] Comment on above: One Time for 1 Occurrences starting 08/07 until 08/22/2019 Screening colonoscopy SCREENING COLONOSCOPY GI/Bronch Routine Encounter for screening colonoscopy 01/28/2022 9:43 AM EST [facility] Immunizations Immunization Date Immunization Notes Care Provider Fa cili 12-23-2015 influenza, injectabl e, quadrivalent, contains preservative Sabrina Dee MD, MPH Work Phone: [facility] 12-23-2015 influenza virus vaccine, unspecified formulation Sabrina Dee MD, MPH Work Phone: [facility] 12-15-2014 influenza virus vaccine, unspecified formulation Sabrina Dee MD, MPH Work Phone: [facility] Payers Date Payer Category Payer Self-pay [id number] 2019 Unknown [facility] xxxxxxxxxxx 2019-Present [phone] CLAIMS DEPARTMENT [address] [place] [address] xxxxxxxxxxx [id number] 2017 Unknown [id number] 2017 Unknown 1969 Unknown [id number] 2.16.840.1.735802.3.579.2.900 1969 Unknown [id number] 2.16.840.1.041026.3.579.2.900 1969 Unknown [id number] 2.16.840.1.427589.3.579.2.900 1969 Unknown [id number] 2.16.840.1.052175.3.579.2.900 1969 Unknown [id number] 2.16.840.1.253596.3.579.2.900 1969 Unknown [id number] 2.16.840.1.418218.3.579.2.173 1969 Unknown [id number] 2.16.840.1.539148.3.579.2.173 1969 Unknown [id number] 2.16.840.1.690243.3.579.2.593 1969 Unknown [id number] 2.16.840.1.794650.3.579.2.593 1969 Unknown [id number] 2.16.840.1.089839.3.579.2.593 1969 Unknown [id number] 2.16.840.1.475107.3.579.2.593 1969 Unknown [id number] 2.16.840.1.692555.3.579.2.593 1969 Unknown [id number] 2.16.840.1.123062.3.579.2.593 1969 Unknown [id number] 2.16.840.1.806114.3.579.2.593 1969 Unknown [id number] 2.16.840.1.853547.3.579.2.593 1969 Unknown [id number] 2.16.840.1.674472.3.579.2.593 1969 Unknown [id number] 2.16.840.1.171439.3.579.2.593 1969 Unknown [id number] 2.16.840.1.395102.3.579.2.593 1969 Unknown [id number] 2.16.840.1.779870.3.579.2.593 1969 Unknown [id number] 2.16.840.1.473309.3.579.2.593 1969 Unknown [id number] 2.16.840.1.682036.3.579.2.593 1969 Unknown [id number] 2.16.840.1.374793.3.579.2.594 1969 Unknown [id number] 2.16.840.1.609847.3.579.2.594 1969 Unknown [id number] 2.16.840.1.405704.3.579.2.594 1969 Unknown [id number] 2.16.840.1.682384.3.579.2.594 1969 Unknown [id number] 2.16.840.1.646622.3.579.2.594 1969 Unknown [id number] 2.16.840.1.514272.3.579.2.594 1959 Medicaid [id number] 1959 Unknown [id number] Unknown [id number] 2.16.840.1.232821.3.579.2.531 Unknown [id number] 2.16.840.1.406074.3.579.2.531 Unknown [id number] 2.16840.1.853369.3.579.2.531 Social History Date Type Detail Facility Start: 06-09-2017 End: 12-16-2021 Tobacco smoking status WYIS Current every day smoker [facility] History of tobacco use Cigarette Smoker [facility] Start: 06-09-2017 End: 12-16-2021 Cigarettes smoked current (pack per day) - Reported [facility] Start: 1970 Sex Assigned At Not on file [facility] Start: 08-22-2019 End: 08-12-2022 Alcohol intake Current non-drinker of alcohol (finding) [place] Exposure to SARS-CoV -2 (event) Unable to assess [place] Start: 03-08-2018 End: 12-16-2021 Tobacco use and exposure Never used Robert Applebaum MD Start: 07-24-2014 Tobacco Comment Smokes < 1/2 p pd, smoker for 30+ years [facility] Start: 07-24-2014 Alcohol Comment Prior heavy dr carrillo, quit 8 years ago [facility] Sex Assigned At Sex Assigned At [facility] Start: 09-25-2021 End: 11-09-2022 Tobacco smoking status WYIS Smoker (finding) [facility] Start: 1970 Sex Assigned At Female [facility] Start: 05-09-2016 Alcohol Comment been sober for 9 years [facility] Clinical Notes 10-08-2019 to 08-12-2022 Sabrina Dee MD, MPH - 08/12/2022 10:30 AM Ruiz Dee MD, MPH - 08/12/2022 10:30 AM Nicole Fuller RN - 08/12/2022 10:30 AM Nicole Fuller RN - 08/12/2022 10:30 AM EDT Note Date & Type Note Facility 08-12-2022 History and physical note ENDOSCOPIC PREPROCEDURE HISTORY AND PHYSICAL HISTORY OF PRESENT ILLNESS: Chioma Rainey is a 52 y.o. female seen in the pre-procedure area at [facility]. The indication for endoscopic evaluation includes: Alcohol-induced chronic pancreatitis PAST MEDICAL HISTORY: Past Medical History: Diagnosis Date Anemia Depression H. pylori infection Neutrophilic leukocytosis Pancreatitis SURGICAL HISTORY: Past Surgical History: Procedure Laterality Date EGD W/ ULTRASOUND N/A 12/01/2019 Laterality: N/A; Surgeon: Sabrina Dee MD, MPH; Location: [facility] EGD W/ ULTRASOUND N/A 04/23/2016 Laterality: N/A; Surgeon: Pineda Troy MD; Location: [facility] EGD W/ ULTRASOUND N/A 01/23/2016 Laterality: N/A; Surgeon: Pineda Troy MD; Location: [facility] CHANGE TUBE GASTROSTOMY N/A 08/20/2015 Laterality: N/A; Surgeon: Yanni Alonzo MD; Location: [facility] EGD DIAGNOSTIC N/A 06/25/2015 Laterality: N/A; Surgeon: Pineda Troy MD; Location: [facility] EGD W/ PLACEMENT OR REPLACEMENT PEG N/A 06/15/2015 Laterality: N/A; Surgeon: Curry Wilson MD; Location: [facility] EGD W/ INSERTION TUBE OR CATHETER N/A 06/13/2015 Laterality: N/A; Surgeon: Jose Ty MD; Location: [facility] EGD W/ ULTRASOUND N/A 02/14/2015 Laterality: N/A; Surgeon: Pineda Troy MD; Location: [facility] CHOLECYSTECTOMY CHOLECYSTECTOMY, LAPAROSCOPIC HYSTERECTOMY MEDICATIONS: Current Outpatient Medications Medication Instructions Amitriptyline (ELAVIL) 25 mg, Oral, DAILY AT BEDTIME Ergocalciferol (VITAMIN D2) 50,000 Units, Oral, WEEKLY omeprazole (PRILOSEC) 20 mg, Oral, DAILY Pancreatic enzymes (Creon) [address] Particles capsule 48,000 Units, Oral, 3 TIMES DAILY WITH MEALS Current Outpatient Medications: omeprazole [address] capsule, Take 1 capsule by mouth daily., Disp: 30 capsule, Rfl: 6 amitriptyline 10 MG tablet, Take 2.5 tablets by mouth at bedtime., Disp: 30 tablet, Rfl: 11 ergocalciferol 1.25 MG (60311 UT) capsule, Take 1 capsule by mouth once a week for 8 doses., Disp: 8 capsule, Rfl: 0 Pancreatic enzymes (Creon) 96172-[address] Particles capsule, Take 2 capsules by mouth 3 times daily with meals., Disp: 180 capsule, Rfl: 0 Current Facility-Administered Medications: Lactated ringers IV solution, , Intravenous, Continuous, Sabrina Dee MD, MPH lidocaine 1% buffered in sodium bicarbonate 1-8.4 % injection SOSY 1 mL, 1 mL, Intradermal, PRN, Sabrina Dee MD, MPH ALLERGIES: Allergies Allergen Reactions Toradol [Ketorolac Tromethamine] Hives and Itching Morphine Hives Tramadol Hives Haloperidol Panic attack Ibuprofen Hives and Swelling Penicillins Swelling Reglan [Metoclopramide] Anxiety FOCUSED REVIEW OF SYSTEMS: Negative for nausea, vomiting, abdominal pain and diarrhea VITAL SIGNS: Vitals: 08/12/22 1034 BP: 128/69 Pulse: 82 Resp: 22 Temp: 98.2 degrees F (36.8 degrees C) TempSrc: Infrared SpO2: 98% Height: 1.575 m (5' 2 ) PREPROCEDURE PHYSICAL EXAM: AIRWAY: normal, Mallampati: Class II (complete visualization of the uvula) HEART: Regular and No murmur PULMONARY: Lungs clear to auscultation bilaterally ABDOMEN: Soft, nontender, nondistended ASSESSMENT: Chioma Rainey is a 52 y.o. female is ready for the planned procedure. ASA Class: ASA 3 - Patient with moderate systemic disease with functional limitations PLAN: Will plan to proceed with UPPER EUS using Monitored Anesthesia Care. Sabrina Dee MD, MPH [facility] 08-12-2022 History and physical note ENDOSCOPIC PREPROCEDURE HISTORY AND PHYSICAL HISTORY OF PRESENT ILLNESS: Chioma Rainey is a 52 y.o. female seen in the pre-procedure area at [facility]. The indication for endoscopic evaluation includes: Alcohol-induced chronic pancreatitis PAST MEDICAL HISTORY: Past Medical History: Diagnosis Date Anemia Depression H. pylori infection Neutrophilic leukocytosis Pancreatitis SURGICAL HISTORY: Past Surgical History: Procedure Laterality Date EGD W/ ULTRASOUND N/A 12/01/2019 Laterality: N/A; Surgeon: Sabrina Dee MD, MPH; Location: [facility] EGD W/ ULTRASOUND N/A 04/23/2016 Laterality: N/A; Surgeon: Pineda rToy MD; Location: [facility] EGD W/ ULTRASOUND N/A 01/23/2016 Laterality: N/A; Surgeon: Pineda Troy MD; Location: [facility] CHANGE TUBE GASTROSTOMY N/A 08/20/2015 Laterality: N/A; Surgeon: Yanni Alonzo MD; Location: [facility] EGD DIAGNOSTIC N/A 06/25/2015 Laterality: N/A; Surgeon: Pineda Troy MD; Location: [facility] EGD W/ PLACEMENT OR REPLACEMENT PEG N/A 06/15/2015 Laterality: N/A; Surgeon: Curry Wilson MD; Location: [facility] EGD W/ INSERTION TUBE OR CATHETER N/A 06/13/2015 Laterality: N/A; Surgeon: Jose Ty MD; Location: [facility] EGD W/ ULTRASOUND N/A 02/14/2015 Laterality: N/A; Surgeon: Pineda Troy MD; Location: [facility] CHOLECYSTECTOMY CHOLECYSTECTOMY, LAPAROSCOPIC HYSTERECTOMY MEDICATIONS: Current Outpatient Medications Medication Instructions Amitriptyline (ELAVIL) 25 mg, Oral, DAILY AT BEDTIME Ergocalciferol (VITAMIN D2) 50,000 Units, Oral, WEEKLY omeprazole (PRILOSEC) 20 mg, Oral, DAILY Pancreatic enzymes (Creon) [id number] Particles capsule 48,000 Units, Oral, 3 TIMES DAILY WITH MEALS Current Outpatient Medications: omeprazole [address] capsule, Take 1 capsule by mouth daily., Disp: 30 capsule, Rfl: 6 amitriptyline 10 MG tablet, Take 2.5 tablets by mouth at bedtime., Disp: 30 tablet, Rfl: 11 ergocalciferol 1.25 MG (07292 UT) capsule, Take 1 capsule by mouth once a week for 8 doses., Disp: 8 capsule, Rfl: 0 Pancreatic enzymes (Creon) [address] Particles capsule, Take 2 capsules by mouth 3 times daily with meals., Disp: 180 capsule, Rfl: 0 Current Facility-Administered Medications: Lactated ringers IV solution, , Intravenous, Continuous, Sabrina Dee MD, MPH lidocaine 1% buffered in sodium bicarbonate 1-8.4 % injection SOSY 1 mL, 1 mL, Intradermal, PRN, Sabrina Dee MD, MPH ALLERGIES: Allergies Allergen Reactions Toradol [Ketorolac Tromethamine] Hives and Itching Morphine Hives Tramadol Hives Haloperidol Panic attack Ibuprofen Hives and Swelling Penicillins Swelling Reglan [Metoclopramide] Anxiety FOCUSED REVIEW OF SYSTEMS: Negative for nausea, vomiting, abdominal pain and diarrhea VITAL SIGNS: Vitals: 08/12/22 1034 BP: 128/69 Pulse: 82 Resp: 22 Temp: 98.2 degrees F (36.8 degrees C) TempSrc: Infrared SpO2: 98% Height: 1.575 m (5' 2 ) PREPROCEDURE PHYSICAL EXAM: AIRWAY: normal, Mallampati: Class II (complete visualization of the uvula) HEART: Regular and No murmur PULMONARY: Lungs clear to auscultation bilaterally ABDOMEN: Soft, nontender, nondistended ASSESSMENT: Chioma Rainey is a 52 y.o. female is ready for the planned procedure. ASA Class: ASA 3 - Patient with moderate systemic disease with functional limitations PLAN: Will plan to proceed with UPPER EUS using Monitored Anesthesia Care. Sabrina Dee MD, MPH documented in this encounter [facility] 08-12-2022 Nurse Note PT Given discharge paperwork and reviewed per MD and nurse. Shift Leader available.Diet and restrictions reviewed as well. Venous access removed no complications noted. Ok to d/c Anesthesia and procedural MD. documented in this encounter [facility] 08-12-2022 Nurse Surgical operation note PT Given discharge paperwork and reviewed per MD and nurse. Shift Leader available.Diet and restrictions reviewed as well. Venous access removed no complications noted. Ok to d/c Anesthesia and procedural MD. [facility] 06-16-2022 History of Presen t illness Narrative This Plastics Worker verified the patients name and date of . Reason for Visit: She had concerns including Follow-up (6 month follow up). HPI: 51 yo woman with: 1. EtOH chronic pancreatitis, last drink in 2014 (15 years of drinking 12 pack beer/day) 2. Tobacco abuse, 1/2 ppd. Cut down smoking in early 2019 (before 1 ppd, 20 pack year history) 3. Multiple attacks of prior acute pancreatitis; last attack of acute pancreatitis (with elevated lipase) September 2021 4. Prior EUS CPB in 2015, 2016, 2019 with good response; also prior feeding tube for pain management 5. Prior evaluation at [facility] for TPIAT and was not a candidate 6. Last CT was at [facility] in 05/2019: No calcification in the pancreas. Last EUS in 2016 at [facility]: hyperechoic foci, hyperechoic duct wall, stranding. PD 4 mm. 7. Osteoporosis Patient reports continued flare ups of acute pancreatitis or abdominal pain. She has predominantly the abdominal pain than nausea/vomiting. Patient has soft stools. She is not on PERT. Current pain baseline is at 8 on 10 with intermittent flare ups. Today: Reports intermittent sensation of food getting stuck in her mid to lower esophagus since last December 2021. Has abdominal pain described as similar to last OV: Sharp pain mid-abdominal region radiating to the back; reported as up to 8/10 (worse with meals); currently sitting in the room it is a 6/10 on intensity. Still smoking 0.5-1 ppd. Celiac plexus block helped with the pain for the first month, and after that not as much. This is consistent with previous - previously had up to 1 year improvement with the block sometimes, and other times has not helped at all. Seems to have more erratic benefit but some reports that when it does help with the pain it is significant. PMH: She has a past medical history of Anemia, Depression, H. pylori infection, Neutrophilic leukocytosis, and Pancreatitis. She has no past medical history of Arrhythmia, Arthritis, Asthma, CAD (coronary artery disease), Cardiac angina, Congestive heart failure, COPD (chronic obstructive pulmonary disease), Diabetes mellitus, Difficult intubation, Essential hypertension, benign, GERD (gastroesophageal reflux disease), Glaucoma, Hepatitis, HIV (human immunodeficiency virus infection), Hyperlipidemia, Hyperthyroidism, Hypothyroidism, WA (myocardial infarction), Migraine, PEGGY (obstructive sleep apnea), Pacemaker, or Renal disease. PSH: She has a past surgical history that includes cholecystectomy, laparoscopic; cholecystectomy; hysterectomy; egd w/ ultrasound (N/A, 02/14/2015); egd w/ insertion tube or catheter (N/A, 06/13/2015); egd w/ placement or replacement peg (N/A, 06/15/2015); egd diagnostic (N/A, 06/25/2015); change tube gastrostomy (N/A, 08/20/2015); egd w/ ultrasound (N/A, 01/23/2016); egd w/ ultrasound (N/A, 04/23/2016); and egd w/ ultrasound (N/A, 12/01/2019). Medications: She has a current medication list which includes the following prescription(s): amitriptyline 10 MG tablet, ergocalciferol 1.25 MG (24215 UT) capsule, and Pancreatic enzymes (Creon) [id number] Particles capsule. Allergies: She is allergic to toradol [ketorolac tromethamine], morphine, tramadol, haloperidol, ibuprofen, penicillins, and reglan [metoclopramide]. Social History: She reports that she has been smoking cigarettes. She has a 32.00 pack-year smoking history. She has never used smokeless tobacco. She reports that she does not drink alcohol and does not use drugs. Family History: Her family history includes Breast Cancer in her mother. Review of Systems: [x] represents a positive response and [ ] denotes a negative response Constitutional: [] Weight loss [] Fevers Eyes: [] Problems with vision ENT: [] Nose or sinus problems [] Oral problems [] Throat problems or hoarseness Cardiovascular: [] Chest pain [] Leg pain with walking [] Palpitations [] Ankle swelling Respiratory: [] Shortness of breath [] Persistent Cough [] Wheezing Endocrine: [] Increased Thirst [] Increased Urination Gastrointestinal: [] Heartburn [] Dysphagia [x] Abdominal pain [] Loss of appetite [x] Nausea or vomiting [] Diarrhea [] Constipation [] Melena [] Hematochezia [] Scleral icterus or jaundice Skin: [] Rashes Musculoskeletal: [] Trouble walking or standing [] Joint pain [] Muscle pain Allergy/Immune System: [] Allergies [] Frequent Infections Neurological: [] Memory difficulties [] Temporary blindness [] Difficulty speaking [] Headaches [] Numbness Psychiatric: [] Depression [] Suicidal ideation [] Auditory hallucinations Hematological/Lymphatic: [] Lymphadenopathy [] Frequent Nose Bleeds [] Easy Bruising Genitourinary: [] Penile/Vaginal Discharge [] Pain with urination [] Trouble starting urinary stream [] Hematuria Physical Examination Vital Signs: BP 122/68 Pulse 83 Wt 58.1 kg (128 lb) SpO2 98% BMI 23.41 kg/m Smoking Status Every Day General: The patient is a 51 y.o. female in NAD HEENT: NCAT, EOMI, PERRLA, no LAD, no TYM, OP is without E/E/E, MMM Lungs: Breathing comfortably on RA Heart: RRR c nl S1 & S2, no M/R/G Abdomen: Epigastric tenderness, +BS, no rebound, no guarding Extremities: Warm and dry, no C/C/E Neruo: CN II-XII were intact Labs: [facility] labs reviewed Assessment and Plan: No diagnosis found. 51 yo woman with alcoholic chronic pancreatitis, also current smoker. She quit drinking in 2019 and is trying hard to quit smoking. She is a prior EUS-CPB responder. She has intermittent flare ups and is seeking non-narcotic management. No baseline evaluation for OP/Openia 1. Tobacco cessation; advised her to ask PCP about Chantix 2. Screening colonoscopy, scheduled with Dr. Tyler 07/28/22 3. Continue PERT 4. Continue Vitamin D and Calcium supplements 5. Repeat EUS-CPB as needed (due for re-treatment) 6. Savary dilation with repeat EUS-CPB for symptoms of dysphagia likely 2/2 non obstructing Schatzki ring 7. Refer to endocrinology for Osteoporosis (DEXA 01/2022) RTC 6 months There are no Patient Instructions on file for this visit. I have independently seen, evaluated and examined the patient along with the resident/fellow on 06/16/22 and I agree with the findings, assessment and plan. 51 yo woman with alcoholic chronic pancreatitis, also current smoker. She quit drinking in 2019 and is trying hard to quit smoking. She is a prior EUS-CPB responder. She has intermittent flare ups and is on non-narcotic management. Osteoporosis on DEXA Scan 1. EUS-CPB to be scheduled 2. Endocrinology consultation for Osteoporosis; on Vitamin D and Calcium supplements 3. Screening colonoscopy - scheduled 4. Continue PERT 5. GERD - start PPI 6. RTC in Mar 2022 Sabrina Dee MD, MPH Professor of Clinical Medicine Section of Advanced Endoscopy and Pancreatic Disorders Division of Gastroenterology, Hepatology, and Nutrition documented in this encounter [facility] 06-16-2022 Instructions Sabrina Dee MD, MPH - 06/16/2022 11:00 AM EDT Schedule EUS celiac plexus block; EGD dilation Referral to endocrinology; appointment to be scheduled Return to clinic in Mar 2023 Smoking cessation Vitamin D 2000 units daily Calcium supplement 1 gram daily Omeprazole (Prilosec) 20mg daily, take at least 30 mins before dinner documented in this encounter [facility] 01-28-2022 Miscellaneous Notes Attending physician in room speaking with patient and family on results. Attending physician ok for discharge. Pt ambulated unassisted with steady gait and balance. IV removed and discharge instructions given with verbal ok by patient of understanding. Pt discharged via w/c with truck driver rubbish collector from unit. Dr dee aware patient ready for results Updated dr goins on patient pain and received new orders documented in this encounter [facility] 01-28-2022 Note Formatting of this n ote might be different from the original. Attending physician in room speaking with patient and family on results. Attending physician ok for discharge. Pt ambulated unassisted with steady gait and balance. IV removed and discharge instructions given with verbal ok by patient of understanding. Pt discharged via w/c with truck driver rubbish collector from unit. [facility] 01-28-2022 Note Formatting of this n ote might be different from the original. Dr dee aware patient ready for results [facility] 01-28-2022 Note Formatting of this n ote might be different from the original. Updated dr goins on patient pain and received new orders [facility] 01-28-2022 History and physical note ENDOSCOPIC PREPROCEDURE HISTORY AND PHYSICAL HISTORY OF PRESENT ILLNESS: Chioma Rainey is a 51 y.o. female seen in the preoprocedure area at [facility]. The indication for endoscopic evaluation includes: Recurrent acute pancreatitis PAST MEDICAL HISTORY: Past Medical History: Diagnosis Date Anemia Depression H. pylori infection Neutrophilic leukocytosis Pancreatitis SURGICAL HISTORY: Past Surgical History: Procedure Laterality Date EGD W/ ULTRASOUND N/A 12/01/2019 Laterality: N/A; Surgeon: Sabrina Dee MD, MPH; Location: [facility] EGD W/ ULTRASOUND N/A 04/23/2016 Laterality: N/A; Surgeon: Pineda Troy MD; Location: [facility] EGD W/ ULTRASOUND N/A 01/23/2016 Laterality: N/A; Surgeon: Pineda Troy MD; Location: [facility] CHANGE TUBE GASTROSTOMY N/A 08/20/2015 Laterality: N/A; Surgeon: Yanni Alonzo MD; Location: [facility] EGD DIAGNOSTIC N/A 06/25/2015 Laterality: N/A; Surgeon: Pineda Troy MD; Location: [facility] EGD W/ PLACEMENT OR REPLACEMENT PEG N/A 06/15/2015 Laterality: N/A; Surgeon: Curry Wilson MD; Location: [facility] EGD W/ INSERTION TUBE OR CATHETER N/A 06/13/2015 Laterality: N/A; Surgeon: Jose Ty MD; Location: [facility] EGD W/ ULTRASOUND N/A 02/14/2015 Laterality: N/A; Surgeon: Pineda Troy MD; Location: [facility] CHOLECYSTECTOMY CHOLECYSTECTOMY, LAPAROSCOPIC HYSTERECTOMY MEDICATIONS: Current Outpatient Medications Medication Instructions amitriptyline (ELAVIL) 25 mg, Oral, DAILY AT BEDTIME ergocalciferol (VITAMIN D2) 50,000 Units, Oral, WEEKLY Pancreatic enzymes (Creon) [address]14-[address] Particles capsule 48,000 Units, Oral, 3 TIMES DAILY WITH MEALS Current Outpatient Medications: amitriptyline 10 MG tablet, Take 2.5 tablets by mouth at bedtime., Disp: 30 tablet, Rfl: 11 Pancreatic enzymes (Creon) [address] Particles capsule, Take 2 capsules by mouth 3 times daily with meals., Disp: 180 capsule, Rfl: 0 ergocalciferol 1.25 MG (22258 UT) capsule, Take 1 capsule by mouth once a week for 8 doses., Disp: 8 capsule, Rfl: 0 Current Facility-Administered Medications: lactated ringers IV solution, , Intravenous, Continuous, Sabrina Dee MD, MPH lidocaine 1% buffered in sodium bicarbonate 1-8.4 % injection SOSY 1 mL, 1 mL, Intradermal, PRN, Sabrina Dee MD, MPH simethicone undiluted 40 mg/0.6 mL irrigation 1 Application, 1 Application, Irrigation, As directed PRN, Sabrina Dee MD, MPH ALLERGIES: Allergies Allergen Reactions Toradol [Ketorolac Tromethamine] Hives and Itching Morphine Hives Tramadol Hives Haloperidol Panic attack Ibuprofen Hives and Swelling Penicillins Swelling Reglan [Metoclopramide] Anxiety FOCUSED REVIEW OF SYSTEMS: Negative for nausea, vomiting, abdominal pain and diarrhea VITAL SIGNS: Vitals: 01/28/22 0759 BP: 108/63 Pulse: 91 Resp: 19 Temp: 98 degrees F (36.7 degrees C) TempSrc: Infrared SpO2: 99% Height: 1.575 m (5' 2 ) PREPROCEDURE PHYSICAL EXAM: AIRWAY: normal, Mallampati: Class II (complete visualization of the uvula) HEART: Regular and No murmur PULMONARY: Lungs clear to auscultation bilaterally ABDOMEN: Soft, nontender, nondistended ASSESSMENT: Chioma Rainey is a 51 y.o. female is ready for the planned procedure. ASA Class: ASA 3 - Patient with moderate systemic disease with functional limitations PLAN: Will plan to proceed with UPPER EUS using Monitored Anesthesia Care. Sabrina Dee MD, MPH [facility] 01-28-2022 History and physical note ENDOSCOPIC PREPROCEDURE HISTORY AND PHYSICAL HISTORY OF PRESENT ILLNESS: Chioma Rainey is a 51 y.o. female seen in the preoprocedure area at [facility]. The indication for endoscopic evaluation includes: Recurrent acute pancreatitis PAST MEDICAL HISTORY: Past Medical History: Diagnosis Date Anemia Depression H. pylori infection Neutrophilic leukocytosis Pancreatitis SURGICAL HISTORY: Past Surgical History: Procedure Laterality Date EGD W/ ULTRASOUND N/A 12/01/2019 Laterality: N/A; Surgeon: Sabrina Dee MD, MPH; Location: [facility] EGD W/ ULTRASOUND N/A 04/23/2016 Laterality: N/A; Surgeon: Pineda Troy MD; Location: [facility] EGD W/ ULTRASOUND N/A 01/23/2016 Laterality: N/A; Surgeon: Pineda Troy MD; Location: [facility] CHANGE TUBE GASTROSTOMY N/A 08/20/2015 Laterality: N/A; Surgeon: Yanni Alonzo MD; Location: [facility] EGD DIAGNOSTIC N/A 06/25/2015 Laterality: N/A; Surgeon: Pineda Troy MD; Location: [facility] EGD W/ PLACEMENT OR REPLACEMENT PEG N/A 06/15/2015 Laterality: N/A; Surgeon: Curry Wilson MD; Location: [facility] EGD W/ INSERTION TUBE OR CATHETER N/A 06/13/2015 Laterality: N/A; Surgeon: Jose Ty MD; Location: [facility] EGD W/ ULTRASOUND N/A 02/14/2015 Laterality: N/A; Surgeon: Pineda Troy MD; Location: [facility] CHOLECYSTECTOMY CHOLECYSTECTOMY, LAPAROSCOPIC HYSTERECTOMY MEDICATIONS: Current Outpatient Medications Medication Instructions amitriptyline (ELAVIL) 25 mg, Oral, DAILY AT BEDTIME ergocalciferol (VITAMIN D2) 50,000 Units, Oral, WEEKLY Pancreatic enzymes (Creon) 71936-[address] units [address] Particles capsule 48,000 Units, Oral, 3 TIMES DAILY WITH MEALS Current Outpatient Medications: amitriptyline 10 MG tablet, Take 2.5 tablets by mouth at bedtime., Disp: 30 tablet, Rfl: 11 Pancreatic enzymes (Creon) [address]29-[address] Particles capsule, Take 2 capsules by mouth 3 times daily with meals., Disp: 180 capsule, Rfl: 0 ergocalciferol 1.25 MG (78370 UT) capsule, Take 1 capsule by mouth once a week for 8 doses., Disp: 8 capsule, Rfl: 0 Current Facility-Administered Medications: lactated ringers IV solution, , Intravenous, Continuous, Sabrina Dee MD, MPH lidocaine 1% buffered in sodium bicarbonate 1-8.4 % injection SOSY 1 mL, 1 mL, Intradermal, PRN, Sabrina Dee MD, MPH simethicone undiluted 40 mg/0.6 mL irrigation 1 Application, 1 Application, Irrigation, As directed PRN, Sabrina Dee MD, MPH ALLERGIES: Allergies Allergen Reactions Toradol [Ketorolac Tromethamine] Hives and Itching Morphine Hives Tramadol Hives Haloperidol Panic attack Ibuprofen Hives and Swelling Penicillins Swelling Reglan [Metoclopramide] Anxiety FOCUSED REVIEW OF SYSTEMS: Negative for nausea, vomiting, abdominal pain and diarrhea VITAL SIGNS: Vitals: 01/28/22 0759 BP: 108/63 Pulse: 91 Resp: 19 Temp: 98 degrees F (36.7 degrees C) TempSrc: Infrared SpO2: 99% Height: 1.575 m (5' 2 ) PREPROCEDURE PHYSICAL EXAM: AIRWAY: normal, Mallampati: Class II (complete visualization of the uvula) HEART: Regular and No murmur PULMONARY: Lungs clear to auscultation bilaterally ABDOMEN: Soft, nontender, nondistended ASSESSMENT: Chioma Rainey is a 51 y.o. female is ready for the planned procedure. ASA Class: ASA 3 - Patient with moderate systemic disease with functional limitations PLAN: Will plan to proceed with UPPER EUS using Monitored Anesthesia Care. Sabrina Dee MD, MPH documented in this encounter [facility] 12-16-2021 History of Presen t illness Narrative This MA verified the patients name and date of . Reason for Visit: She had concerns including Follow-up (Patient C/O having flare up's, Patient went to the ER on the 12/13/2021. ). HPI: 51 yo woman with: 1. EtOH chronic pancreatitis, last drink in 2014 (15 years of drinking 12 pack beer/day) 2. Tobacco abuse, 1/2 ppd. Cut down smoking in early 2019 (before 1 ppd, 20 pack year history) 3. Multiple attacks of prior acute pancreatitis; last attack of acute pancreatitis (with elevated lipase) September 2021 4. Prior EUS CPB in 2015, 2016, 2019 with good response; also prior feeding tube for pain management 5. Prior evaluation at [facility] for TPIAT and was not a candidate 6. Last CT was at [facility] in 05/2019: No calcification in the pancreas. Last EUS in 2016 at [facility]: hyperechoic foci, hyperechoic duct wall, stranding. PD 4 mm. 7. No baseline test for Osteoporosis Patient reports continued flare ups of acute pancreatitis or abdominal pain. She has predominantly the abdominal pain than nausea/vomiting. Patient has soft stools. She is not on PERT. Current pain baseline is at 8 on 10 with intermittent flare ups. PMH: She has a past medical history of Anemia, Depression, H. pylori infection, Neutrophilic leukocytosis, and Pancreatitis. She has no past medical history of Arrhythmia, Arthritis, Asthma, CAD (coronary artery disease), Cardiac angina, Congestive heart failure, COPD (chronic obstructive pulmonary disease), Diabetes mellitus, Difficult intubation, Essential hypertension, benign, GERD (gastroesophageal reflux disease), Glaucoma, Hepatitis, HIV (human immunodeficiency virus infection), Hyperlipidemia, Hyperthyroidism, Hypothyroidism, WA (myocardial infarction), Migraine, PEGGY (obstructive sleep apnea), Pacemaker, or Renal disease. PSH: She has a past surgical history that includes cholecystectomy, laparoscopic; cholecystectomy; hysterectomy; egd w/ ultrasound (N/A, 02/14/2015); egd w/ insertion tube or catheter (N/A, 06/13/2015); egd w/ placement or replacement peg (N/A, 06/15/2015); egd diagnostic (N/A, 06/25/2015); change tube gastrostomy (N/A, 08/20/2015); egd w/ ultrasound (N/A, 01/23/2016); egd w/ ultrasound (N/A, 04/23/2016); and egd w/ ultrasound (N/A, 12/01/2019). Medications: She has a current medication list which includes the following prescription(s): amitriptyline 10 MG tablet and Pancreatic enzymes (Creon) 73419-[address] units [address] Particles capsule. Allergies: She is allergic to toradol [ketorolac tromethamine], morphine, tramadol, haloperidol, ibuprofen, penicillins, and reglan [metoclopramide]. Social History: She reports that she has been smoking cigarettes. She has a 32.00 pack-year smoking history. She has never used smokeless tobacco. She reports that she does not drink alcohol and does not use drugs. Family History: Her family history includes Breast Cancer in her mother. Review of Systems: [x] represents a positive response and [ ] denotes a negative response Constitutional: [] Weight loss [] Fevers Eyes: [] Problems with vision ENT: [] Nose or sinus problems [] Oral problems [] Throat problems or hoarseness Cardiovascular: [] Chest pain [] Leg pain with walking [] Palpitations [] Ankle swelling Respiratory: [] Shortness of breath [] Persistent Cough [] Wheezing Endocrine: [] Increased Thirst [] Increased Urination Gastrointestinal: [] Heartburn [] Dysphagia [x] Abdominal pain [] Loss of appetite [x] Nausea or vomiting [] Diarrhea [] Constipation [] Melena [] Hematochezia [] Scleral icterus or jaundice Skin: [] Rashes Musculoskeletal: [] Trouble walking or standing [] Joint pain [] Muscle pain Allergy/Immune System: [] Allergies [] Frequent Infections Neurological: [] Memory difficulties [] Temporary blindness [] Difficulty speaking [] Headaches [] Numbness Psychiatric: [] Depression [] Suicidal ideation [] Auditory hallucinations Hematological/Lymphatic: [] Lymphadenopathy [] Frequent Nose Bleeds [] Easy Bruising Genitourinary: [] Penile/Vaginal Discharge [] Pain with urination [] Trouble starting urinary stream [] Hematuria Physical Examination Vital Signs: BP 118/72 (BP Location: Right arm, BP Position: Sitting) Pulse 80 Ht 1.575 m (5' 2 ) Wt 55.8 kg (123 lb) SpO2 98% BMI 22.50 kg/m Smoking Status Every Day General: The patient is a 51 y.o. female in NAD HEENT: NCAT, EOMI, PERRLA, no LAD, no TYM, OP is without E/E/E, MMM Lungs: CTAB c nl BS Heart: RRR c nl S1 & S2, no M/R/G Abdomen: Epigastric tenderness, +BS, no rebound, no guarding Extremities: Warm and dry, no C/C/E Neruo: CN II-XII were intact Labs: [facility] labs reviewed Assessment and Plan: ICD-10-CM 1. Recurrent acute pancreatitis K85.90 UPPER EUS BONE DENSITY AXIAL (HIP, PELVIS, SPINE) 2. History of smoking 25-50 pack years Z87.891 BONE DENSITY AXIAL (HIP, PELVIS, SPINE) 3. 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 Epigastric pain R10.13 5. Encounter for screening colonoscopy Z12.11 SCREENING COLONOSCOPY 51 yo woman with alcoholic chronic pancreatitis, also current smoker. She quit drinking in 2019 and is trying hard to quit smoking. She is a prior EUS-CPB responder. She has intermittent flare ups and is seeking non-narcotic management. No baseline evaluation for OP/Openia 1. EUS-CPB to be scheduled 2. DEXA baseline 3. Screening colonoscopy 4. Start PERT 5. Start Vitamin D and Calcium supplements RTC in 6 months Patient Instructions 1. Schedule DEXA scan 2. Schedule colonoscopy 3. Schedule EUS 4. Start vitamin D 1,000 units daily. Start calcium supplements 1g daily 5. RTC in 6 months documented in this encounter [facility] 12-16-2021 Instructions Sabrina Dee MD, MPH - 12/16/2021 11:30 AM EDT Schedule DEXA scan Schedule colonoscopy Schedule EUS Start vitamin D 1,000 units daily. Start calcium supplements 1g daily RTC in 6 months documented in this encounter [facility] 03-19-2021 Evaluation note Encounter Date Diagnosis Assessment Notes Mar, Contact with and (suspected) exposure to other viral communicable diseases (ICD-10 - Z20.828) Mar, COVID-19 (ICD-10 - U07.1) Rapid COVID test performed in office today. Advised patient that test was positive. Instructed patient to isolate per CDC guidelines for 10 days from symptom onset. May return to work/activities outside home after isolation period as long as symptoms are improving and has been afebrile for 24 hours without use of antipyretic. Advised patient that health dept. will be in contact as results are reported to them. Advised patient that treatment of COVID is with viral supportive care, OTC cold medications as directed, Tylenol/Motrin as needed for body aches/fever. Increase fluids and rest. Encouraged use of cool mist humidifier. Follow-up with PCP to advise of positive result and further management. Immediate eval for SOB, difficulty, chest pain, fevers that do not break with antipyretic or any other concerning symptoms as reviewed on patient education handout. Patient verbalizes understanding and is agreeable to treatment plan. Patient left in stable condition Mar, Other Additional time spent conducting pre-visit phone call, screening for symptoms, instructions on social distancing, application and removal of PPE, and cleaning of examination room, equipment and supplies was preformed. Patient education given for testing methodology and results. Patient care instructions given in writting by [facility] Care At Home document 66. com Other 08-01-2020 History general Narrative - Reported* Type Description Date Medical History chronic pancreatitis Medical History chronic pain Medical History former alcoholic Surgical History egd- [facility] 10/2019 Surgical History GALLBLADDER Surgical History COLON-[facility] Hospitalization History see above 66. com Other Evaluation noteNo assessment information available [facility] Work Phone: Evaluation note* Diagnosis Recurrent acute pancreatitis- Primary Acute pancreatitis History of smoking 25-50 pack years Alcohol-induced chronic pancreatitis Chronic pancreatitis Epigastric pain Abdominal pain, epigastric Encounter for screening colonoscopy Special screening for malignant neoplasms, colon [facility] Recurrent acute pancreatitis Acute pancreatitis History of smoking 25-50 pack years Encounter for screening colonoscopy Special screening for malignant neoplasms, colon [facility] Other osteoporosis without current pathological fracture- Primary Recurrent acute pancreatitis Acute pancreatitis Encounter for screening colonoscopy Special screening for malignant neoplasms, colon [facility] Encounter for screening colonoscopy Special screening for malignant neoplasms, colon [facility] Osteoporosis without current pathological fracture, unspecified osteoporosis type- Primary Alcohol-induced chronic pancreatitis Chronic pancreatitis [facility] Alcohol-induced chronic pancreatitis Chronic pancreatitis [facility] Additional Instructions Fluids Phenergan if needed for nausea vomiting Bentyl as needed for abdominal pain Follow-up with your GI specialist call Thursday for appointment Return here if any problems persist or worsen [facility] Work Phone: Discharge Instructions * Jose Brown PA-C - 06/09/2017 Abdominal Pain: Care Instructions Your Care Instructions Abdominal pain has many possible causes. Some aren't serious and get better on their own in a few days. Others need more testing and treatment. If your pain continues or gets worse, you need to be rechecked and may need more tests to find out what is wrong. You may need surgery to correct the problem. Don't ignore new symptoms, such as fever, nausea and vomiting, urination problems, pain that gets worse, and dizziness. These may be signs of a more serious problem. Your doctor may have recommended a follow-up visit in the next 8 to 12 hours. If you are not getting better, you may need more tests or treatment. The doctor has checked you carefully, but problems can develop later. If you notice any problems ornew symptoms, get medical treatment right away. Follow-up care is a garcia part of your treatment and safety. Be sure to make and go to all appointments, and call your doctor if you are having problems. It's also a good idea to know your test resultsand keep a list of the medicines you take. How can you care for yourself at home? Rest until you feel better. To prevent dehydration, drink plenty of fluids, enough so that your urine is light yellow or clear like water. Choose water and other caffeine-free clear liquids until you feel better. If you have kidney, heart, or liver disease and have to limit fluids, talk with your doctor before you increase the amount of fluids you drink. If your stomach is upset, eat mild foods, such as rice, dry toast or crackers, bananas, and applesauce. Try eating several small meals instead of two or three large ones. Wait until 48 hours after all symptoms have gone away before you have spicy foods, alcohol, and drinks that contain caffeine. Do not eat foods that are high in fat. Avoid anti-inflammatory medicines such as aspirin, ibuprofen (Advil, Motrin), and naproxen (Aleve).These can cause stomach upset. Talk to your doctor if you take daily aspirin for another health problem. When should you call for help? Call 911 anytime you think you may need emergency care. For example, call if: You passed out (lost consciousness). You pass maroon or very bloody stools. You vomit blood or what looks like coffee grounds. You have new, severe belly pain. Call your doctor now or seek immediate medical care if: Your pain gets worse, especially if it becomes focused in one area of your belly. You have a new or higher fever. Your stools are black and look like tar, or they have streaks of blood. You have unexpected vaginal bleeding. You have symptoms of a urinary tract infection. These may include: Pain when you urinate. Urinating more often than usual. Blood in your urine. You are dizzy or lightheaded, or you feel like you may faint. Watch closely for changes in your health, and be sure to contact your doctor if: You are not getting better after 1 day (24 hours). Where can you learn more? Log into your personal health record on [email or web address] and enter E907 in the Education box to learn more about Abdominal Pain: Care Instructions. Current as of: August 03, 2015 Content Version: 11.2 8062-1819 [employer]. Care instructions adapted under license by your healthcare professional. If you have questions about a medical condition or this instruction, always ask your healthcare professional. [employer] disclaims any warranty or liability for your use of this information. Nausea and Vomiting: Care Instructions Your Care Instructions When you are nauseated, you may feel weak and sweaty and notice a lot of saliva in your mouth. Nausea often leads to vomiting. Most of the time you do not need to worry about nausea and vomiting, butthey can be signs of other illnesses. Two common causes of nausea and vomiting are stomach flu and food poisoning. Nausea and vomiting from viral stomach flu will usually start to improve within 24 hours. Nausea and vomiting from food poisoning may last from 12 to 48 hours. The doctor has checked you carefully, but problems can develop later. If you notice any problems ornew symptoms, get medical treatment right away. Follow-up care is a garcia part of your treatment and safety. Be sure to make and go to all appointments, and call your doctor if you are having problems. It's also a good idea to know your test resultsand keep a list of the medicines you take. How can you care for yourself at home? To prevent dehydration, drink plenty of fluids, enough so that your urine is light yellow or clear like water. Choose water and other caffeine-free clear liquids until you feel better. If you have kidney, heart, or liver disease and have to limit fluids, talk with your doctor before you increase the amount of fluids you drink. Rest in bed until you feel better. When you are able to eat, try clear soups, mild foods, and liquids until all symptoms are gone for 12 to 48 hours. Other good choices include dry toast, crackers, cooked cereal, and gelatin dessert, such as Jell-O. When should you call for help? Call 911 anytime you think you may need emergency care. For example, call if: You passed out (lost consciousness). Call your doctor now or seek immediate medical care if: You have symptoms of dehydration, such as: Dry eyes and a dry mouth. Passing only a little dark urine. Feeling thirstier than usual. You have new or worsening belly pain. You have a new or higher fever. You vomit blood or what looks like coffee grounds. Watch closely for changes in your health, and be sure to contact your doctor if: You have ongoing nausea and vomiting. Your vomiting is getting worse. Your vomiting lasts longer than 2 days. You are not getting better as expected. Where can you learn more? Log into your personal health record on [email or web address] and enter H591 in the Education box to learn more about Nausea and Vomiting: Care Instructions. Current as of: August 03, 2015 Content Version: 11.2 7682-5895 [employer]. Care instructions adapted under license by your healthcare professional. If you have questions about a medical condition or this instruction, always ask your healthcare professional. [employer] disclaims any warranty or liability for your use of this information. Please review regarding your visit: Please note that your blood pressure during this ER visit was above 120/80 mmHg. YOUR BP READING WAS: 111/88 [employer] [place] [employer] (AHA) defines a normal blood pressure as below 120/80 mm Hg. This does not necessarily mean that you carry a diagnosis of a persistent elevation in your blood pressure called hypertension , but does need close follow up. Please note that the Joint National Committee (JNC) guidelines recommend that this reading be repeated by your primary doctor or by home readings. Often times blood pressure can be elevated in the ERrelated to pain, etc. Your ER physician is trained in determining whether this blood pressure is causing symptoms during your visit today. At this time, your emergency physician has determined that you are safe for discharge. Please note that it may be inappropriate to treat this blood pressure in the ER if it is not causing symptoms. We strongly recommend follow up with your primary care doctor. A primary doctor will be referred toyou if you do not have one. If your blood pressure is persistently elevated, your doctor will then review options that can be made to manage this condition. If you already have a diagnosis of hypertension, please follow up with your primary care doctor for further management. The AHA does have a website that you can review at your convenience for more information: [email or web address] in this encounter* Discharge Instr - Other Orders - Poncho Sparks RN - 05/15/2017 1:20 PM EST Patient voices desire to leave hospital AMA. IV removed. Patient is ambulatory in care of spouse. [facility] hospitalist notified. in this encounter* Montse Khan CNP - 08/24/2017 Seek medical attention if you have worsening symptoms or other concerns. Please follow up with your family doctor or one of your choosing. You may find a provider through the [facility] Physician Referral Service by calling [phone] ([phone]) or by visiting [email or web address] [place], Thank You for choosing [facility]! The following attachments cannot be sent through Care Everywhere. * Nausea and Vomiting (Mongolian) * Gastroenteritis (Mongolian) * Diarrhea (Mongolian) in this encounter The following attachments cannot be sent through Care Everywhere. * Pancreatitis (Mongolian) in this encounter* Instructions* Laura Meyer RN - 08/25/2019 Patient Instructions: Activity: activity as tolerated Diet: encourage fluids GI specialist in 2 weeks. * Attachments The following attachments cannot be sent through Care Everywhere. * Pancreatitis: Chronic Diet (Mongolian) * Pancreatitis (Mongolian) documented in this encounter Assessments Diagnosis Epigastric pain - Primary Abdominal pain, epigastric Non-intractable vomiting wit h nausea, unspecified vomiting type Diagnosis Epigastric abdominal pain - Primary Abdominal pain, epigastric Other acute pancreatitis, un specified complication status Diagnosis Enteritis - Primary Other and unspecified noninfectious gastroenteritis and colitis Diarrhea, unspecified type Nausea and vomiting, intract ability of vomiting not specified, unspecified vomiting type Diagnosis Acute on chronic pancreatitis (HCC)- Primary Diagnosis Acute pancreatitis, unspecified complication status, unspecified pancreatitis type Pain of upper abdomen Abdominal pain, other specified site Acute recurrent pancreatitis Acute pancreatitis Diagnosis Acute biliary pancreatitis, unspecified complication status- Primary Summary Purpose Family History No Family History Records Found Relationship Condition Age at Onset Recorded Date/T eli Not Specified Unknown family medical history Unknown Advance Directives No Advanced Directives Records FoundDocuments on File Type Date Recorded Patient Educational Assistant Expl anation Advance Directives and Living Will Power of Retail Specialist Latest Code Status on File Code Status Date Activated Date Inactivated Comments Full Code 08/22/2019 4:27 PM Documents on File Type Date Recorded Patient Educational Assistant Expl anation Advance Directives and Livin g Will 03/08/2018 10:32 AM Latest Code Status on File Code Status Date Activated Date Inactivated Comments DNRCC-Arrest 03/08/2018 1:13 PM Detail: No intubation Full Code 05/14/2017 7:02 PM 06/09/2017 7:16 AM Full Code 07/15/2016 10:00 PM 07/16/2016 4:34 PM Full Code 06/30/2016 7:21 PM 07/01/2016 12:02 AM Full Code 05/21/2016 11:07 AM 05/21/2016 3:31 PM Documents on File Type Date Recorded Patient Educational Assistant Expl anation ACP-Advance Directive ACP-Power of Retail Specialist Latest Code Status on File Code Status Date Activated Date Inactivated Comments Full Code 08/22/2019 4:27 PM 08/25/2019 12:21 PM Advance Directive Response Recorded Date/ Time Advance Directives No July 04, 2 020 2:35pm Latest Code Status on File Code Status Date Activated Date Inactivated Comments Full Code 09/24/2017 10:30 PM Code Status History Code Status Date Activated Date Inactivated Comments Full Code 04/23/2016 5:03 PM 04/24/2016 2:27 PM Full Code 12/22/2015 1:00 AM 12/26/2015 8:40 PM Full Code 07/06/2015 8:46 AM 07/09/2015 6:16 PM Full Code 06/24/2015 9:16 PM 07/01/2015 5:31 PM Advance Directive Response Recorded Date/ Time Advance Directives No July 04, 2 020 1:35pm History of Present Illness * Laura Meyer RN - 08/25/2019 10:00 AM EDT Discharge instructions reviewed with patient. Educated on diet. * Laura Meyer RN - 08/25/2019 8:11 AM EDT Patient up in chair and eating jello. Patient states she is feeling better and hopes to go home today. Patient states she did not have much luck from suppository yesterday but refuses another one today and miralax. * Monik Slaughter RN - 08/24/2019 10:[address] Hughes to report ordered dose of dilaudid (0.25 mg) is not helping her pain. Dr. Hughes originally ordered Toradol, but due to patient allergies, toradol is contraindicated. Called Dr. Hughes back, medical writer explained that patient is tolerating dilaudid. Dr. Hughes ordered dose of dilaudid increased from 0.25 mg to 0.5 mg q4 hrs PRN. * Ladan Stearns RN - 08/24/2019 1:27 PM EDT Patient walking in hallway at this time. * Ladan Stearns RN - 08/24/2019 9:14 AM EDT Epidemiology Investigator to patients bedside at this time to reassess pain. Patient sitting in chair, appears restless and is tearful. Patient states Dilaudid did not help the pain, states there is nothing medical writer can do as she deals with this often. Will continue to monitor patient. * Craley Camara APRN - CNP - 08/24/2019 7:58 AM EDT Progress Note SUBJECTIVE: Abdominal pain OBJECTIVE: Resting in bed. Alert and oriented. Complains of pain increasing again and that she continues to dry heave. She has been ambulating in the halls frequently. We discussed her labs are improving. She states she does have an EGD scheduled in September with her GI doc. Afebrile Vitals: Vitals: 08/24/19 0720 BP: 124/74 Pulse: 96 Resp: 16 Temp: 97.7 F (36.5 C) SpO2: 94% Weight: 134 lb 14.4 oz (61.2 kg)(Bed was re-zeroed.) Height: 5' 2 (157.5 cm) Exam: CONSTITUTIONAL: awake, alert, cooperative, no apparent distress, and appears stated age EYES: Lids and lashes normal, pupils equal, round and reactive to light, extra ocular muscles intact, sclera clear, conjunctiva normal ENT: normocepalic, without obvious abnormality, atraumatic NECK: supple, symmetrical, trachea midline, skin normal and no stridor HEMATOLOGIC/LYMPHATICS: no cervical lymphadenopathy and no supraclavicular lymphadenopathy LUNGS: No increased work of breathing, good air exchange, clear to auscultation bilaterally, no crackles or wheezing CARDIOVASCULAR: Normal apical impulse, regular rate and rhythm, normal S1 and S2, no S3 or S4, and no murmur noted ABDOMEN: No scars, hypoactive bowel sounds, soft, non-distended, diffuse tenderness, no masses palpated, no hepatosplenomegally MUSCULOSKELETAL: there is no redness, warmth, or swelling of the joints full range of motion noted motor strength is 5 out of 5 all extremities bilaterally tone is normal NEUROLOGIC: Mental Status Exam: Level of Alertness: awake Orientation: person, place, time Memory: normal SKIN: no bruising or bleeding, normal skin color, texture, turgor, no redness, warmth, or swelling,no rashes and no lesions EXT: no cyanosis, clubbing or edema present Diagnostic Data: Reviewed ASSESSMENT: Active Problems: Acute recurrent pancreatitis Resolved Problems: * No resolved hospital problems. * PLAN: Acute Recurrent Pancreatitis Lipase -- Improving 63 today NPO -- continues to dry heave Ambulate Pain control Scheduled for EGD in September with her Departmental Buyer at [facility] Discharge Planning -- Home when stable Carley Camara APRN, STIFF NECK LOADER-C Associated attestation - Rajeev Tinoco MD - 08/24/2019 5:30 PM EDT Attending Supervising Physician s Attestation Statement I have personally evaluated and examined the patient [id number] in conjunction with the nurse practitioner. I agree with management and disposition of the patient. My garcia findings are: 49 y.o. female admitteed for <principal problem not specified> ongoing abdominal pain, flatus. No BM. No vomiting ENT: normocepalic, without obvious abnormality, atraumatic NECK: supple, symmetrical, trachea midline, skin normal and no stridor HEMATOLOGIC/LYMPHATICS: no cervical lymphadenopathy and no supraclavicular lymphadenopathy LUNGS: No increased work of breathing, good air exchange, clear to auscultation bilaterally, no crackles or wheezing CARDIOVASCULAR: Normal apical impulse, regular rate and rhythm, normal S1 and S2, no S3 or S4, and no murmur noted ABDOMEN: No scars, hypoactive bowel sounds, soft, non-distended, diffuse tenderness, no masses palpated, no hepatosplenomegally Active Problems: Acute recurrent pancreatitis Resolved Problems: * No resolved hospital problems. * Examined and Reviewed plan of care with STIFF NECK LOADER. Directions and discussion about care and plans. Disposition including length of stay was reviewed. Nutritional status, advanced directive and old records reviewed. Disposition: laxative, limit pain meds, ambulation The patient was seen examined with the nurse practitioner on August 24, 2019 all direct care was reviewed with the nurse practitioner at the bedside with the patient. Electronically signed by Rajeev Tinoco MD * Sandra Hernandez RN - 08/23/2019 10:51 PM EDT Pt c/o pain 7/10 and requesting Dilaudid 0.25mg. Medication given. Pt also c/o minimal itching and requesting Benadryl 25mg. Medication given. Will continue to monitor. * Brie Birmingham RN - 08/23/2019 6:00 PM EDT Patient states that she is less itchy and redness has improved. * Brie Birmingham RN - 08/23/2019 4:40 PM EDT Epidemiology Investigator contacted Dr. Tinoco regarding update that patient continues to c/o itching and feeling hot, and that redness is slightly worse to BUE. Order received for Dariusdryl now and then may repeat in 6 hours if needed. * Brie Birmingham RN - 08/23/2019 3:32 PM EDT Nat from Dr. Tinoco's office returned phone call at this time. She states to d/c Lovenox, but he would not give order for Benedryl. Epidemiology Investigator let nurse know that if patient's c/o ithcing and redness doesn't improve in an hour, that medical writer will be calling back to update physician. * Brie Birmingham RN - 08/23/2019 3:20 PM EDT Epidemiology Investigator called into patient's room d/t patient c/o itching, feeling hot , and slight redness noted to BUE and face. Epidemiology Investigator contacted Dr. Tinoco office and left message with his nurse, asking for IV Benedryl and d/c of Lovenox. Patient thinks she may have had reaction to Lovenox in the past, and thatis the only other med she is currently taking here other than Dilaudid. Epidemiology Investigator did once again verify that patient usually tolerates Dilaudid every 3 hours, as she has a Morphine and Tramadol allergy.She does verify that she feels the dilaudid is not the issue. * Brie Birmingham RN - 08/23/2019 1:10 PM EDT Patient no longer nauseated. * Brie Birmingham RN - 08/23/2019 12:22 PM EDT Phenergan given d/t c/o upset stomach. Will continue to monitor. * Smiley Erazo LSW - 08/23/2019 10:42 AM EDT Met with Patient this a.m. to discuss discharge plans. Patient is a 49 year old , white female, admitted with Acute Recurrent Pancreatitis. Patient is alert and oriented, polite and cooperative with this assessment. States that she wishes to be discharged home when deemed medically stable. Patient lives with her in [place]. She uses no DME and has no outside services currently in place. Patient provides for her own transportation needs and manages her medications. She is independent with her ADL's. [facility]CP is [facility] Patient has [facility] [place] and denies needing further assistance with the cost of her medications. Discharge plan is home with no additional services at this time. Patient is a 'Full Code' status. She has no healthcare directives and voices that she is not interested in pursuing these documents further. CAMP ATTENDANT to monitor and assist with discharge planning as appropriate. EDU Recio 08/23/2019 * Brie Birmingham RN - 08/23/2019 10:00 AM EDT Patient no longer nauseated, and no more emesis noted. * Brie Birmingham RN - 08/23/2019 9:10 AM EDT Zofran given d/t patient vomiting in room since after drinking only about 100 ml of fluids for breakfast. Made NPO as well. Will continue to monitor. * Brie Birmingham RN - 08/23/2019 9:05 AM EDT Epidemiology Investigator made MECHANICS HANDYMAN aware that patient is vomiting at this time since clear liquid diet added. Epidemiology Investigator to give Zofran and place patient back NPO. * Janine Raygoza RD, ERIN - 08/23/2019 8:24 AM EDT Nutrition Assessment Type and Reason for Visit: Initial, Consult(N/V/poor PO) Nutrition Recommendations: 1. Continue NPO diet. 2. F/u PO progression. 3. Pt declined diet education materials. 4. Re-zero Pt bed to verify weight gain. Nutrition Assessment: Inadequate oral intakes r/t altered GI aeb was NPO, advanced to clear liquid diet this morning, she vomited after drinking 100 ml fluids, then returned to NPO, PO < 50% x 3 days before admission. Dx chronic Pancreatitis. No ETOH x 9 years noted per EMR. Lipase improved to 96. Pt states PO was down for 3 days before admission, no weight loss, but states of weight gain. [id number] Discussed need to re-zero Pt bed to verify gain. She declined education needs states she has a GI doctor and RDN at the [facility]. Reports following the guidelines they recommended. States she drank ensure clear at home. Malnutrition Assessment: Malnutrition Status: At risk for malnutrition Context: Chronic illness Findings of the 6 clinical characteristics of malnutrition (Minimum of 2 out of 6 clinical characteristics is required to make the diagnosis of moderate or severe Protein Calorie Malnutrition based on AND/ASPEN Guidelines): 1. Energy Intake-Less than or equal to 50% of estimated energy requirement, (4 days) 2. Weight Loss-No significant weight loss, 3. Fat Loss-No significant subcutaneous fat loss, 4. Muscle Loss-No significant muscle mass loss, 5. Fluid Accumulation-No significant fluid accumulation, 6. Black Topper Strength-Not measured Nutrition Risk Level: Moderate Nutrient Needs: Estimated Daily Total Kcal: 4252-1481(20-23/kg) Estimated Daily Protein (g): 65-75g(1.3-1.5g/kg) Estimated Daily Total Fluid (ml/day): 1600 ml Nutrition Diagnosis: Problem: Inadequate oral intake Etiology: related to Insufficient energy/nutrient consumption ? Signs and symptoms: as evidenced by NPO status due to medical condition(Dx chronic pancreatitis) Objective Information: Nutrition-Focused Physical Findings: No visual S/Sx of malnutrition Wound Type: None Current Nutrition Therapies: Oral Diet Orders: NPO Oral Diet intake: NPO Oral Nutrition Supplement (ONS) Orders: None Anthropometric Measures: Ht: 5' 2 (157.5 cm) Current Body Wt: 141 lb 4.8 oz (64.1 kg) Admission Body Wt: 137 lb (62.1 kg) Usual Body Wt: 115 lb (52.2 kg)(115-118#) % Weight Change: , 26.5# weight gain/23%, recommend to re-zero Pt bed Santa Body Wt: 110 lb (49.9 kg), % Santa Body 129% BMI Classification: BMI 25.0 - 29.9 Overweight Recent Labs 08/22/19 1340 08/23/19 0620 NA 136 138 K 3.8 4.3 CL 103 109* CO2 24 22 BUN 8 7 CREATININE 0.63 0.66 GLUCOSE 92 89 ALT 13 34* ALKPHOS 109* 102 GFR Lab Results Component Value Date LABALBU 3.4 08/23/2019 No results found for: AMYLASE Lipase Date Value Ref Range Status 08/23/2019 96 (H) 13 - 60 U/L Final Nutrition Interventions: Continue NPO Continued Inpatient Monitoring, Coordination of Care, Education declined Nutrition Evaluation: Evaluation: Goals set Goals: Return of oral intakes with diet progression to low fat diet as tolerated Monitoring: Nutrition Progression, I&O, Weight, Pertinent Labs, Nausea or Vomiting, Patient/Family Education Contact Number: [phone] * Carley Camara, ALEA - MECHANICS HANDYMAN - 08/23/2019 7:30 AM EDT Progress Note SUBJECTIVE: Abdominal pain OBJECTIVE: Sitting up in bed alert and oriented in no acute distress. States she feels a little bitbetter and would like something to drink. She says the pain is better. Denies n/v at this time. States she does get up and move around in the room. Afebrile Vitals: Vitals: 08/23/19 0630 BP: Pulse: 100 Resp: Temp: SpO2: Weight: 141 lb 4.8 oz (64.1 kg) Height: 5' 2 (157.5 cm) Exam: CONSTITUTIONAL: awake, alert, cooperative, no apparent distress, and appears stated age EYES: Lids and lashes normal, pupils equal, round and reactive to light, extra ocular muscles intact, sclera clear, conjunctiva normal ENT: normocepalic, without obvious abnormality, atraumatic NECK: supple, symmetrical, trachea midline, skin normal and no stridor HEMATOLOGIC/LYMPHATICS: no cervical lymphadenopathy and no supraclavicular lymphadenopathy LUNGS: No increased work of breathing, good air exchange, clear to auscultation bilaterally, no crackles or wheezing CARDIOVASCULAR: Normal apical impulse, regular rate and rhythm, normal S1 and S2, no S3 or S4, and no murmur noted ABDOMEN: Soft, slight diffuse tenderness. BS x 4 MUSCULOSKELETAL: there is no redness, warmth, or swelling of the joints full range of motion noted tone is normal NEUROLOGIC: Mental Status Exam: Level of Alertness: awake Orientation: person, place, time Memory: normal SKIN: no bruising or bleeding, normal skin color, texture, turgor, no redness, warmth, or swelling,no rashes and no lesions EXT: no cyanosis, clubbing or edema present Diagnostic Data: Reviewed ASSESSMENT: Active Problems: Acute recurrent pancreatitis Resolved Problems: * No resolved hospital problems. * PLAN: Clear Liquids, advance if tolerated Decrease pain medications Ambulate in benavides Continue NS at 75 ml/hr CBC/Lipase Daily Discharge Plan--later today/tomorrow Carley Camara APRN, STIFF NECK LOADER-C Associated attestation - Rajeev Tinoco MD - 08/23/2019 12:04 PM EDT Attending Supervising Physician s Attestation Statement I have personally evaluated and examined the patient [id number] in conjunction with the nurse practitioner. I agree with management and disposition of the patient. My garcia findings are: 49 y.o. female admitteed for <principal problem not specified> still having abdominal pain a better. Regular. Clear lung sounds. Soft abdomen it is a little bit of tenderness epigastric but pretty min Active Problems: Acute recurrent pancreatitis Resolved Problems: * No resolved hospital problems. * Examined and Reviewed plan of care with STIFF NECK LOADER. Directions and discussion about care and plans. Disposition including length of stay was reviewed. Nutritional status, advanced directive and old records reviewed. Disposition: trial of diet, reduce pain meds, improve activity The patient was seen examined with the nurse practitioner on August 23, 2019 all direct care was reviewed with the nurse practitioner at the bedside with the patient. Electronically signed by Rajeev Tinoco MD * Sandra Hernandez RN - 08/22/2019 8:28 PM EDT Pt requesting Dilaudid for 8/10 pain and phenergan for nausea. Meds given per orders. Will continueto monitor. * Brie Birmingham RN - 08/22/2019 3:55 PM EDT [facility]t ED in process of running a code on another patient; audit clerks supervisor states that report will be called when able. Epidemiology Investigator unable to get ahold of staff inED to put patient in airline manager so that medical writer can transfer patient over to [facility]. Will try again shortly. documented in this encounter Chief Complaint and Reason for Visit Chief Complaint Abd Pain hx Pancreat itis Abd Pain Chief Complaint Abd Pain hx Pancreat itis Abd Pain rt side pain abd pain Chief Complaint nausea, pain , diarr hea Chief Complaint abd pain Reason for Referral Specialty Diagnoses / Procedures Referred By Zia espinal Referred To Contact Diagnoses Alcohol-induced chronic pancreatitis Procedures UPPER EUS IA ESOPHAGOGASTRODUODENOSCOPY US SCOPE W/ADJ Sabrina Tam MD, MPH [address] [place] [address] Referral ID Status Reason Start Date Expiration Date V isits Requested Visits Authorized [id number] New Request 06/16/2022 07/11/2023 1 1 Specialty Diagnoses / Procedures Referred By Zia espinal Referred To Contact Endocrinology, Diabetes & Metabolism Diagnoses Osteoporosis without current pathological fracture, unspecified osteoporosis type Sabrina Dee MD, MPH [address] [place] [phone] Referral ID Status Reason Start Date Expiration Date V isits Requested Visits Authorized [id number] New Request 06/16/2022 07/11/2023 1 1 Specialty Diagnoses / Procedures Referred By Contac t Referred To Contact Diagnoses Encounter for screening colonoscopy Procedures SCREENING COLONOSCOPY IA COLON CA SCRN NOT HI RSK IND Sabrina Dee MD, MPH [address] [place] [phone] Referral ID Status Reason Start Date Expiration Date V isits Requested Visits Authorized [id number] New Request 12/16/2021 01/10/2023 1 1 Specialty Diagnoses / Procedures Referred By Contac t Referred To Contact Diagnoses Recurrent acute pancreatitis History of smoking 25-50 pack years Procedures BONE DENSITY AXIAL (HIP, PELVIS, SPINE) Sabrina Dee MD, MPH [address] [place] [phone] Referral ID Status Reason Start Date Expiration Date V isits Requested Visits Authorized [id number] New Request 12/16/2021 01/10/2023 1 1 Specialty Diagnoses / Procedures Referred By Contac t Referred To Contact Diagnoses Recurrent acute pancreatitis Procedures UPPER EUS IA EGD US GUIDED TRANSMURAL INJXN/FIDUCIAL MARKER Sabrina Dee MD, MPH [address] [place] [phone] Referral ID Status Reason Start Date Expiration Date V isits Requested Visits Authorized [id number] New Request 12/16/2021 01/10/2023 1 1 Additional Source Comments ED Notes - Vickie Dill RN - 06/09/2017 10:40 AM EDTED Notes - Vickie Dill RN - 06/09/2017 9:51 AM EDTED Attestation Note - Joana Mendes MD - 06/09/2017 9:18 AM EDT Miscellaneous Notes (unrecog nized section and content) Pt discharge teaching and paperwork provided. Pt verbalized understanding. Pt denies any other questions/concerns at this time. Pt discharge held at this time d/t pt receiving oral morphine. RN will continue to monitor and discharge pt when stable. I personally interviewed the patient. I personally examined the patient. I discussed the patient with STIFF NECK LOADER/PA. I agree with the STIFF NECK LOADER/PA treatment plan. I agree with the STIFF NECK LOADER/PA plan of care. I agree with the STIFF NECK LOADER/PA dispo as documented. 46-year-old female presents with abdominal pain. She states I have chronic pancreatitis and this feels like a flareup . States that she took her usual Phenergan and [place] with minimal relief so came the emergency department. On exam: I saw the patient she is resting comfortably in bed. Regular rate rhythm. Lungs are clear to auscultation. Abdomen soft, minimally tender in the epigastrium. No peritoneal signs, rebound, no guarding. Some minimal right CVA tenderness. Laboratory evaluation essentially normal. No elevation in her white blood cell count. Gave her immediate release morphine. She had some improvement with this. She is going to follow with her lead software tester with whom she has an appointment on the . I gave the patient explicit instructions on signs and symptoms to monitor. They are to follow-up with their primary care physician or return to the emergency department should symptoms worsen acutely. Patient is agreeable with the plan. All explanations given in layman's term, all questions answered. Pt refused oral morphine at this time. Pt std that just doesn't work. They usually have to give me dilaudid to help with the pain. Ill wait for now. Herendeen, PA notified and aware at this time. This RN will continue to monitor. Pt reported having a hx of pancreatitis. Pt reported she started having abdominal pain yesterday. N/v started today. She took a phenergan suppository at home without relief. Pt reported nothing is helping with pain at home. Pt denies any other complaints at this time. Call light in reach. RN will continue to monitor. Formatting of this note may be different from the original. ED PROVIDER NOTE [facility] NAME: Chioma aRiney AGE: 46 y.o. : 1970 VISIT DATE: 06/09/2017 CSN: [id number] PCP: Elie Nichols MD Chief Complaint Patient presents with Abdominal Pain Patient is a 46-year-old female with history of chronic pancreatitis, somatoform disorder, anemia who presents to the emergency department with complaint of abdominal pain, nausea, vomiting. Patient reports that abdominal pain started last night. She reports it has been constant since. Reports it is in epigastric area. She reports radiation to the right flank. States this feels similar to previous episodes of pancreatitis flares. Patient reports associated nausea and vomiting. She did use a Phenergan suppository. She states that she took [place] last night. Last dose of [place] was around 9 PM last night. She reports no improvement with these medications. Denies any changes in bowel movements. Denies any urinary symptoms. Denies any fevers. Denies alcohol use. States she has not drank in 10 years. Has had previous cholecystectomy. Denies history of gastric ulcers. Past Medical History: Diagnosis Date Alcoholic pancreatitis Anemia Chronic abdominal pain Somatoform disorder Past Surgical History: Procedure Laterality Date CHOLECYSTECTOMY CHOLECYSTECTOMY EGD N/A 09/05/2014 Procedure: EGD; Surgeon: Romain Dumont MD; Location: [facility]; Service: HYSTERECTOMY ORIF PELVIS ORTHOPEDIC SURGERY WISDOM TOOTH EXTRACTION Family History Problem Relation Age of Onset Adopted: Yes Diabetes Mother Hypertension Father Cancer Maternal Grandmother Social History Social History Marital status: Spouse name: N/A Number of children: N/A Years of education: N/A Occupational History Not on file. Social History Main Topics Smoking status: Current Every Day Smoker Packs/day: 1.00 Types: Cigarettes Smokeless tobacco: Never Used Comment: Smokes < 1/2 ppd, smoker for 30+ years Alcohol use No Comment: Prior heavy drinker, quit 8 years ago Drug use: No Sexual activity: Yes Partners: Male Other Topics Concern Not on file Social History Narrative No narrative on file Previous Medications No medications on file Allergies Allergen Reactions Penicillin G Anaphylaxis Haldol [Haloperidol] Hives Patient stated that she does not have allergy to Dilaudid. 05/16/16. Ibuprofen Hives Reglan [Metoclopramide Hcl] Tramadol Hives Review of Systems Constitutional: No fevers Skin: No color change Eyes: No discharge ENMT: No drooling, No trouble swallowing Respiratory: No choking Endocrine: no polyphagia Neurologic: no new facial asymmetry Psychiatric: No self-injury Hematologic/Lymphatic: No new easy bruising Allergic/Immunologic: no urticaria Other pertinent positives and negatives in HPI Positives and pertinent negatives as per HPI. All other systems were reviewed and are negative. Patient Vitals for the past 24 hrs: BP Temp Temp src Pulse Resp SpO2 Height Weight 06/09/17 0720 111/88 98.4 ?F (36.9 ?C) Oral (!) 125 16 98 % 5' 2 54.2 kg (119 lb 9 oz) Physical Exam Constitutional: She is oriented to person, place, and time. She appears well-developed and well-nourished. No distress. HENT: Head: Normocephalic and atraumatic. Mouth/Throat: Oropharynx is clear and moist. No oropharyngeal exudate. Eyes: EOM are normal. Pupils are equal, round, and reactive to light. Right eye exhibits no discharge. Left eye exhibits no discharge. Neck: Normal range of motion. Neck supple. Cardiovascular: Normal rate, regular rhythm, normal heart sounds and intact distal pulses. Exam reveals no gallop and no friction rub. No murmur heard. Pulmonary/Chest: Effort normal and breath sounds normal. No respiratory distress. She has no wheezes. She has no rales. Abdominal: Soft. Bowel sounds are normal. She exhibits no distension and no mass. There is tenderness (epigastric and RUQ, moderate tenderness with deep palpation). There is no rebound and no guarding. No hernia. Musculoskeletal: Normal range of motion. She exhibits no edema or tenderness. Neurological: She is alert and oriented to person, place, and time. Skin: Skin is warm and dry. No rash noted. She is not diaphoretic. No erythema. No pallor. Psychiatric: She has a normal mood and affect. Her behavior is normal. Nursing note and vitals reviewed. Laboratory & Radiographic Imaging (if done): Results for orders placed or performed during the hospital encounter of 06/09/17 BMP Result Value Ref Range Sodium 137 135 - 145 mmol/L Potassium 4.3 3.5 - 5.1 mmol/L Chloride 102 98 - 108 mmol/L Bicarbonate 21 21 - 32 mmol/L Anion Gap 18 10 - 20 mmol/L Glucose 80 65 - 99 mg/dL BUN 8 8 - 25 mg/dL Creatinine 0.73 0.40 - 1.10 mg/dL eGFR 98 >=60 mL/min/1.73 m2 BUN/Creatinine Ratio 11.0 10.0 - 20.0 Calcium 10.2 8.4 - 10.2 mg/dL Lipase Result Value Ref Range Lipase 50 15 - 65 U/L Urinalysis Result Value Ref Range Color, Urine Yellow Colorless, Yellow Clarity, Urine Cloudy (A) Clear Specific [place] 1.024 1.005 - 1.025 pH, Urine 5.0 5.0 - 7.0 Protein, Urine Negative Negative mg/dL Glucose, Urine Negative Negative mg/dL Ketones, Urine Trace (A) Negative mg/dL Bilirubin, Urine Negative Negative Urobilinogen, Urine 2.0 (A) <2.0 mg/dL Blood, Urine Negative Negative Nitrite, Urine Negative Negative Leukocyte Esterase, Urine Negative Negative WBCs, Urine 1 0 - 5 /hpf RBCs, Urine 1 0 - 3 /hpf Bacteria, Urine None Seen None Seen /hpf Squamous Epithelial 4 0 - 4 /hpf Calcium Oxalate Crystals Many (A) None Seen /hpf Mucus, Urine Rare None Seen, Rare /lpf Hepatic Function Panel (LFT) Result Value Ref Range Total Protein 7.3 6.0 - 8.0 g/dL Albumin 4.4 3.2 - 5.2 g/dL Total Bilirubin <0.2 0.0 - 1.3 mg/dL Bilirubin, Direct <0.1 0.0 - 0.4 mg/dL Alkaline Phosphatase 89 40 - 150 U/L AST 20 0 - 45 U/L ALT 10 0 - 40 U/L No orders to display Procedures MDM Number of Diagnoses or Management Options Epigastric pain: Non-intractable vomiting with nausea, unspecified vomiting type: Diagnosis management comments: Patient presented to the emergency department for evaluation of abdominal pain. Pain located in epigastric area. On exam she has tenderness in epigastrium and right upper quadrants. She has had previous cholecystectomy. She reports chronic pancreatitis. Her lipase is normal. With no leukocytosis. LFTs are normal. No concerning electrolyte abnormalities. No vomiting in the emergency department. Given 1 dose of Zofran and IV fluids here in the emergency department. We will discharge patient home. She does have symptomatic medications at home including Phenergan suppositories. She has follow-up with her lead software tester at [facility] in 2 weeks. Do not feel she needs any advanced imaging at this time. Nothing on exam to suggest perforated viscus, small bowel obstruction. Feel this is related to patient's chronic abdominal pain issues. The patient has been informed that they may have pre-hypertension or hypertension based on a blood pressure reading in the Emergency Department. I recommend that the patient call the primary care provider listed on their discharge instructions or a physician of their choice as soon as possible to arrange follow-up in the next 4 weeks for further evaluation of possible pre-hypertension or hypertension. . Clinical Impression: SNOMED CT(R) 1. Epigastric pain EPIGASTRIC PAIN 2. Non-intractable vomiting with nausea, unspecified vomiting type NAUSEA AND VOMITING Follow-up Information 1. Pineda Troy MD. Specialty: Gastroenterology [address] [place] [address] Contact information for after-discharge care Follow-up information has not been specified. New Prescriptions No medications on file (Please note that portions of this note may have been completed with a voice recognition software. Efforts were made to correct any errors, but occasionally words are mis-transcribed.) Jose Brown PA-C 06/09/17 7266 Pt states I have pancreatitis and I am having a flare up since last night . Pt relates mid abdominal pain that shoots into the left side of her back. Pt has been taking prescribed [place] without relief and states she has been vomiting.in this encounter I personally interviewed the patient. I personally examined the patient. I discussed the patient with STIFF NECK LOADER/PA. I agree with the STIFF NECK LOADER/PA treatment plan. I agree with the STIFF NECK LOADER/PA plan of care. I agree with the STIFF NECK LOADER/PA dispo as documented. I saw evaluate this patient she reports a frequent history of pancreatitis presents for evaluation abdominal pain. My exam she is diffusely tender with his CT scan that shows a normal appendix normal bowels possible cystitis. She does not have CVA tenderness I doubt pyelonephritis. Her lipase is elevated consistent with pancreatitis will check her cholesterol as she denies any alcohol use and her gallbladder removed years ago. She is non-peritoneal and appears mildly uncomfortable my exam. We will treat her symptoms that she is not feeling better possibly place in observation . . Report given to: Halie Johnson RN. Care transferred at this time. Formatting of this note may be different from the original. ED PROVIDER NOTE [facility] NAME: Chioma Rainey AGE: 46 y.o. : 1970 VISIT DATE: 05/14/2017 CSN: [id number] PCP: Elie Nichols MD Chief Complaint Patient presents with Abdominal Pain HPI This is a 46-year-old female with PMH of pancreatitis, cholecystectomy, hysterectomy that presents to the ED for chief complaint of epigastric abdominal pain 1 week. Patient states for the last week she has been having increasing epigastric abdominal pain. She says it is sharp, localized, constant and is progressing for the last 2 days. She has had associated nausea, vomiting and diarrhea for the last 24 hours. She endorses 4 episodes of nonbloody, nonbilious emesis this morning and multiple episodes of watery diarrhea. She states the pain feels similar to the pancreatitis pain she has had in the past. She states she has not had a flare in over a year. She is states that she used to have pancreatitis flares from alcohol use however states has not used alcohol in over 9 years. She endorses intermittent chills, denies fevers, chest pain, cough, shortness of breath, flank pain, urinary symptoms. She denies any recent travel or hospitalizations. Skin: No rash Eyes: No discharge ENMT: No hemoptysis Genitourinary: no obstructive symptoms Endocrine: no polyuria Neurologic: no new numbness Psychiatric: No hallucinations Hematologic/Lymphatic: No abnormal bruising Allergic/Immunologic: no urticaria Other pertinent positives and negatives in HPI Past Medical History: Diagnosis Date Alcoholic pancreatitis Anemia Chronic abdominal pain Somatoform Disorder Past Surgical History: Procedure Laterality Date CHOLECYSTECTOMY CHOLECYSTECTOMY EGD N/A 09/05/2014 Procedure: EGD; Surgeon: Romain Dumont MD; Location: [facility]; Service: HYSTERECTOMY ORIF PELVIS ORTHOPEDIC SURGERY WISDOM TOOTH EXTRACTION Family History Problem Relation Age of Onset Adopted: Yes Diabetes Mother Hypertension Father Cancer Maternal Grandmother Social History Social History Marital status: Spouse name: N/A Number of children: N/A Years of education: N/A Occupational History Not on file. Social History Main Topics Smoking status: Current Every Day Smoker Packs/day: 1.00 Types: Cigarettes Smokeless tobacco: Never Used Comment: Smokes < 1/2 ppd, smoker for 30+ years Alcohol use No Comment: Prior heavy drinker, quit 8 years ago Drug use: No Sexual activity: Yes Partners: Male Other Topics Concern Not on file Social History Narrative No narrative on file Previous Medications No medications on file Allergies Allergen Reactions Penicillin G Anaphylaxis Haldol [Haloperidol] Hives Patient stated that she does not have allergy to Dilaudid. 05/16/16. Ibuprofen Hives Reglan [Metoclopramide Hcl] Tramadol Hives Review of Systems Positives and pertinent negatives as per HPI. All other systems were reviewed and are negative. Patient Vitals for the past 24 hrs: BP Temp Temp src Pulse Resp SpO2 Height Weight 05/14/171999 132/74 97.7 ?F (36.5 ?C) Oral 81 17 98 % - - 05/14/17 1743 113/75 97.7 ?F (36.5 ?C) Oral 76 18 99 % - - 05/14/17 1512 117/79 - - 77 15 99 % - - 05/14/17 1258 (!) 126/93 98.1 ?F (36.7 ?C) Oral 95 16 99 % 5' 2 54.4 kg (120 lb) Physical Exam Constitutional: She is oriented to person, place, and time. She appears well-developed. No distress. HENT: Head: Normocephalic and atraumatic. Nose: Nose normal. Mouth/Throat: Oropharynx is clear and moist. Eyes: Conjunctivae and EOM are normal. Pupils are equal, round, and reactive to light. Neck: Normal range of motion. Cardiovascular: Normal rate, regular rhythm and intact distal pulses. Exam reveals no friction rub. Pulmonary/Chest: Effort normal and breath sounds normal. She has no wheezes. Abdominal: Soft. Normal appearance and bowel sounds are normal. She exhibits no distension and no mass. There is tenderness in the right upper quadrant, epigastric area and left upper quadrant. There is no rebound, no guarding, no CVA tenderness, no tenderness at McBurney's point and negative Don's sign. TTP in epigastrium, soft, no rebound or guarding Musculoskeletal: Normal range of motion. Neurological: She is alert and oriented to person, place, and time. Skin: Skin is warm and dry. Capillary refill takes less than 2 seconds. Nursing note and vitals reviewed. Laboratory & Radiographic Imaging (if done): Results for orders placed or performed during the hospital encounter of 05/14/17 BMP Result Value Ref Range Sodium 141 135 - 145 mmol/L Potassium 4.0 3.5 - 5.1 mmol/L Chloride 102 98 - 108 mmol/L Bicarbonate 25 21 - 32 mmol/L Anion Gap 18 10 - 20 mmol/L Glucose 86 65 - 99 mg/dL BUN 8 8 - 25 mg/dL Creatinine 0.68 0.40 - 1.10 mg/dL eGFR 105 >=60 mL/min/1.73 m2 BUN/Creatinine Ratio 11.8 10.0 - 20.0 Calcium 10.7 (H) 8.4 - 10.2 mg/dL Hepatic Function Panel (LFT) Result Value Ref Range Total Protein 7.9 6.0 - 8.0 g/dL Albumin 4.8 3.2 - 5.2 g/dL Total Bilirubin 0.2 0.0 - 1.3 mg/dL Bilirubin, Direct <0.1 0.0 - 0.4 mg/dL Alkaline Phosphatase 102 40 - 150 U/L AST 20 0 - 45 U/L ALT 13 0 - 40 U/L Lipase Result Value Ref Range Lipase 137 (H) 15 - 65 U/L Urinalysis Result Value Ref Range Color, Urine Yellow Colorless, Yellow Clarity, Urine Clear Clear Specific [place] 1.006 1.005 - 1.025 pH, Urine 5.0 5.0 - 7.0 Protein, Urine Negative Negative mg/dL Glucose, Urine Negative Negative mg/dL Ketones, Urine Negative Negative mg/dL Bilirubin, Urine Negative Negative Urobilinogen, Urine <2.0 <2.0 mg/dL Blood, Urine Negative Negative Nitrite, Urine Negative Negative Leukocyte Esterase, Urine Negative Negative WBCs, Urine 1 0 - 5 /hpf RBCs, Urine 2 0 - 3 /hpf Bacteria, Urine Rare (A) None Seen /hpf Squamous Epithelial 3 0 - 4 /hpf Mucus, Urine Rare None Seen, Rare /lpf Gold Top Result Value Ref Range Extra Tube Hold for add-ons. Light Blue Top Result Value Ref Range Extra Tube Hold for add-ons. Ruff Top Result Value Ref Range Extra Tube Hold for add-ons. CBC Auto Differential Result Value Ref Range WBC 10.70 4.50 - 11.00 K/mcL RBC 4.96 4.00 - 5.20 M/mcL Hemoglobin 16.6 (H) 12.0 - 16.0 g/dL Hematocrit 48.5 (H) 36.0 - 46.0 % MCV 97.8 80.0 - 100.0 fL MCH 33.5 26.0 - 34.0 pg MCHC 34.2 31.0 - 37.0 g/dL Platelets 275 150 - 400 K/mcL RDW - CV 12.8 11.6 - 14.8 % MPV 9.8 9.0 - 15.5 fL Neutrophils 73.5 % Lymphocytes 17.7 % Monocytes 6.9 % Eosinophils 0.7 % Basophils 0.8 % IG Percent 0.40 % Neutrophils Abs 7.86 (H) 1.70 - 7.00 K/mcL Lymphocytes Abs 1.89 0.90 - 4.00 K/mcL Monocytes Abs 0.74 0.30 - 0.90 K/mcL Eosinophils Abs 0.08 0.00 - 0.50 K/mcL Basophils Abs 0.09 0.00 - 0.30 K/mcL IG Absolute 0.04 0.00 - 0.30 K/mcL Nucleated RBC 0.0 % Nucleated RBC Abs 0.00 0.00 - 0.00 K/mcL CT Abdomen Pelvis With IV Contrast Only Final Result 1. Mild wall thickening in the largely decompressed urinary bladder, nonspecific. This may reflect bladder decompression or mild cystitis. No other potential acute findings are seen in the abdomen or pelvis to explain the patient's right lower quadrant pain. 2. Status post cholecystectomy and hysterectomy, unchanged. 3. Cecum drooping into the left lower pelvis, with a well visualized normal appendix in the left lower pelvis. Workstation ID: [id number] Procedures MDM This is a 46-year-old female with past medical history of pancreatitis, cholecystectomy, hysterectomy, who presents to the ED for chief complaint of epigastric abdominal pain x 1 week. The patient has history of alcohol pancreatitis with most recent flare approximately a year ago. She says she has not had a drink in over 7 years. She has had 1 week of epigastric pain similar to her pancreatitis pain in the past. Lipase elevated at 137. Remaining lab work otherwise grossly unremarkable. Patient did have significant epigastric tenderness. Therefore, CT abdomen and pelvis with contrast were obtained, which shows mild wall thickening of decompressed urinary bladder, which is nonspecific. No acute findings in the abdomen or pelvis. Status post cholecystectomy and hysterectomy. The patient has no evidence at this time of UTI. She denies any urinary symptoms. She was provided with IV fluids, Pepcid, Zofran and fentanyl in the ED, with some improvement, though still endorsing continued pain and nausea. At this time, she will be placed in observation for symptomatic management. Patient is otherwise updated on the plan at this time. The patient has been informed that they may have pre-hypertension or hypertension based on a blood pressure reading in the Emergency Department. I recommend that the patient call the primary care provider listed on their discharge instructions or a physician of their choice as soon as possible to arrange follow-up in the next 4 weeks for further evaluation of possible pre-hypertension or hypertension. . Clinical Impression: SNOMED CT(R) 1. Epigastric abdominal pain EPIGASTRIC PAIN 2. Other acute pancreatitis, unspecified complication status ACUTE PANCREATITIS Follow-up Information Follow-up information has not been specified. Contact information for after-discharge care Follow-up information has not been specified. New Prescriptions No medications on file (Please note that portions of this note may have been completed with a voice recognition software. Efforts were made to correct any errors, but occasionally words are mis-transcribed.) Indu Zepeda PA-C 05/14/17 2100 Indu Zepeda PA-C 05/14/17 2334 IV access attempted x 1 unsuccessful . Will need US IV placement Pt arrives walking to the triage desk and reports that she has a hx of pancreatitis. Loss of appetite. She has n/court this encounter Patient feeling better after toradol and phenergan. This RN spoke with CNP. Vandana OK to discharge patient now. Formatting of this note may be different from the original. ED PROVIDER NOTE [facility] NAME: Chioma Rainey AGE: 47 y.o. : 1970 VISIT DATE: 08/24/2017 CSN: [id number] PCP: Elie Nichols MD Chief Complaint Patient presents with Abdominal Pain 47-year-old female rise to the ER today with concerns of acute on chronic pancreatitis. She states that she used to be an alcoholic and because of that developed pancreatitis. She states this feels similar to be retired she has had in the past. She developed epigastric pain with nausea and vomiting but also notes that she had a loose stool this morning which is unusual for her for her pancreatitis. She states she has not had any further loose stools today. She states she still does feel nauseated. She said usually when someone asked her what her pain feels like she says it is sharp because is not exactly sure how to describe it but to me describes it as feeling of increased butterflies in the epigastric area. She denies any lightheadedness, vertigo, headache, neck pain, chest pain, back pain, flank pain, urine or bowel complaints, nausea or vomiting, fevers or chills, extremity complaints or paresthesias. She reports that usually she can manages at home by doing liquids and medication she has at home but this time it was worse so she came into the ER. Past Medical History: Diagnosis Date Alcoholic pancreatitis Anemia Chronic abdominal pain Somatoform Disorder Past Surgical History: Procedure Laterality Date CHOLECYSTECTOMY CHOLECYSTECTOMY EGD N/A 09/05/2014 Procedure: EGD; Surgeon: Romain Dumont MD; Location: [facility]; Service: HYSTERECTOMY ORIF PELVIS ORTHOPEDIC SURGERY WISDOM TOOTH EXTRACTION Family History Problem Relation Age of Onset Adopted: Yes Diabetes Mother Hypertension Father Cancer Maternal Grandmother Social History Social History Marital status: Spouse name: N/A Number of children: N/A Years of education: N/A Occupational History Not on file. Social History Main Topics Smoking status: Current Every Day Smoker Packs/day: 1.00 Types: Cigarettes Smokeless tobacco: Never Used Comment: Smokes < 1/2 ppd, smoker for 30+ years Alcohol use No Comment: Prior heavy drinker, quit 8 years ago Drug use: No Sexual activity: Yes Partners: Male Other Topics Concern Not on file Social History Narrative No narrative on file Previous Medications No medications on file Allergies Allergen Reactions Penicillin G Anaphylaxis Haldol [Haloperidol] Hives Patient stated that she does not have allergy to Dilaudid. 05/16/16. Ibuprofen Hives Morphine Reglan [Metoclopramide Hcl] Tramadol Hives Review of Systems Constitutional: no fevers Skin: No rash Eyes: No discharge ENMT: No hemoptysis Genitourinary: no obstructive symptoms Endocrine: no polyuria Neurologic: no new numbness Psychiatric: No hallucinations Hematologic/Lymphatic: No abnormal bruising Allergic/Immunologic: no urticaria Patient Vitals for the past 24 hrs: BP Temp Pulse Resp SpO2 Height Weight 08/24/17 1826 (!) 137/94 - 91 16 97 % - - 08/24/17 1341 125/82 98.3 ?F (36.8 ?C) 87 18 99 % 5' 2 53.5 kg (118 lb) Physical Exam Constitutional: She is oriented to person, place, and time. Vital signs are normal. She appears well-developed and well-nourished. Non-toxic appearance. She does not have a sickly appearance. She does not appear ill. No distress. HENT: Head: Normocephalic and atraumatic. Nose: Nose normal. Mouth/Throat: Uvula is midline, oropharynx is clear and moist and mucous membranes are normal. Eyes: Conjunctivae are normal. Pupils are equal, round, and reactive to light. Neck: Trachea normal and normal range of motion. Neck supple. No thyromegaly present. Cardiovascular: Normal rate, regular rhythm, normal heart sounds, intact distal pulses and normal pulses. Pulmonary/Chest: Effort normal and breath sounds normal. No respiratory distress. She has no decreased breath sounds. She has no wheezes. She has no rhonchi. She has no rales. She exhibits no tenderness. Abdominal: Soft. Normal appearance and bowel sounds are normal. She exhibits no distension. There is generalized tenderness. There is no CVA tenderness. Musculoskeletal: Normal range of motion. Lymphadenopathy: Head (right side): No submental and no submandibular adenopathy present. Head (left side): No submental and no submandibular adenopathy present. She has no cervical adenopathy. Neurological: She is alert and oriented to person, place, and time. She has normal strength. Skin: Skin is warm and dry. No rash noted. No erythema. Psychiatric: She has a normal mood and affect. Her speech is normal and behavior is normal. Judgment and thought content normal. Cognition and memory are normal. Nursing note and vitals reviewed. Laboratory & Radiographic Imaging (if done): Results for orders placed or performed during the hospital encounter of 08/24/17 BMP Result Value Ref Range Sodium 142 135 - 145 mmol/L Potassium 4.1 3.5 - 5.1 mmol/L Chloride 101 98 - 108 mmol/L Bicarbonate 27 21 - 32 mmol/L Anion Gap 18 10 - 20 mmol/L Glucose 105 (H) 65 - 99 mg/dL BUN 7 (L) 8 - 25 mg/dL Creatinine 0.69 0.40 - 1.10 mg/dL eGFR 103 >=60 mL/min/1.73 m2 BUN/Creatinine Ratio 10.1 10.0 - 20.0 Calcium 10.6 (H) 8.4 - 10.2 mg/dL Hepatic Function Panel (LFT) Result Value Ref Range Total Protein 7.4 6.0 - 8.0 g/dL Albumin 4.7 3.2 - 5.2 g/dL Total Bilirubin <0.2 0.0 - 1.3 mg/dL Bilirubin, Direct <0.1 0.0 - 0.4 mg/dL Alkaline Phosphatase 91 40 - 150 U/L AST 17 0 - 45 U/L ALT 14 0 - 40 U/L Lipase Result Value Ref Range Lipase 51 15 - 65 U/L Lactic Acid, Plasma Result Value Ref Range Lactic Acid 1.0 0.6 - 2.0 mmol/L Urinalysis Result Value Ref Range Color, Urine Yellow Colorless, Yellow Clarity, Urine Hazy (A) Clear Specific [place] 1.006 1.005 - 1.025 pH, Urine 7.0 5.0 - 7.0 Protein, Urine Negative Negative mg/dL Glucose, Urine Negative Negative mg/dL Ketones, Urine Negative Negative mg/dL Bilirubin, Urine Negative Negative Urobilinogen, Urine <2.0 <2.0 mg/dL Blood, Urine Negative Negative Nitrite, Urine Negative Negative Leukocyte Esterase, Urine Negative Negative WBCs, Urine 1 0 - 5 /hpf RBCs, Urine 1 0 - 3 /hpf Bacteria, Urine Rare (A) None Seen /hpf Squamous Epithelial 5 (H) 0 - 4 /hpf Transitional Epithelial <1 0 - 1 /hpf Gold Top Result Value Ref Range Extra Tube Hold for add-ons. Light Blue Top Result Value Ref Range Extra Tube Hold for add-ons. CBC Auto Differential Result Value Ref Range WBC 13.24 (H) 4.50 - 11.00 K/mcL RBC 4.60 4.00 - 5.20 M/mcL Hemoglobin 15.2 12.0 - 16.0 g/dL Hematocrit 43.4 36.0 - 46.0 % MCV 94.3 80.0 - 100.0 fL MCH 33.0 26.0 - 34.0 pg MCHC 35.0 31.0 - 37.0 g/dL Platelets 242 150 - 400 K/mcL RDW - CV 12.2 11.6 - 14.8 % MPV 10.0 9.0 - 15.5 fL Neutrophils 74.1 % Lymphocytes 18.1 % Monocytes 6.4 % Eosinophils 0.4 % Basophils 0.6 % IG Percent 0.40 % Neutrophils Abs 9.81 (H) 1.70 - 7.00 K/mcL Lymphocytes Abs 2.40 0.90 - 4.00 K/mcL Monocytes Abs 0.85 0.30 - 0.90 K/mcL Eosinophils Abs 0.05 0.00 - 0.50 K/mcL Basophils Abs 0.08 0.00 - 0.30 K/mcL IG Absolute 0.05 0.00 - 0.30 K/mcL Nucleated RBC 0.0 % Nucleated RBC Abs 0.00 0.00 - 0.00 K/mcL CT Abdomen Pelvis With IV Contrast Only Final Result 1. Mild fluid distention of small bowel loops may represent a nonspecific enteritis. There is also fluid feces in the colon suggesting diarrhea. Much of the left colon is collapsed, which accentuates the wall thickness and a mild nonspecific colitis would be difficult to exclude. 2. No focal inflammatory process is seen. Normal appendix. 3. Status post cholecystectomy with unchanged central biliary ductal prominence. 4. Status post hysterectomy. The ovaries probably remain. 5. Small left adrenal adenoma. [employer] Workstation ID: [id number] Procedures MDM 47-year-old female rise to the ER today with epigastric pain that she is concerned as pancreatitis. Because of her concerns and IV was started and blood work was obtained as well as a urinalysis and a CT scan. Her urine showed no sign of ketones and no sign of dehydration. Her BMP, LFTs, and lipase were actually normal. Her CBC showed an elevated white count of 13.2 for which I did discuss with the patient. Her CT scan actually did not show any acute findings of the pancreas but did show mild fluid distention of the small bowel as well as fluid feces in the colon suggesting diarrhea. Patient was made aware this. Because of her discomfort and her nausea she was ordered a dose of Percocet, Zofran, and Bentyl. Shortly after taking that she did vomit. She was then given IA Phenergan and a dose of Toradol. She was then discharged home with p.o. Bentyl and Zofran. She will follow-up with her primary care provider. Patient and her verbalized understanding and agreed with plan of care. The patient has been informed that they may have pre-hypertension or hypertension based on a blood pressure reading in the Emergency Department. I recommend that the patient call the primary care provider listed on their discharge instructions or a physician of their choice as soon as possible to arrange follow-up in the next 4 weeks for further evaluation of possible pre-hypertension or hypertension. . Clinical Impression: SNOMED CT(R) 1. Enteritis ENTERITIS OF SMALL INTESTINE 2. Diarrhea, unspecified type DIARRHEA 3. Nausea and vomiting, intractability of vomiting not specified, unspecified vomiting type NAUSEA AND VOMITING Follow-up Information 1. Elie Nichols MD. Specialty: Internal Medicine Why: follow up ER visit [address] [address] Contact information for after-discharge care Follow-up information has not been specified. New Prescriptions DICYCLOMINE (BENTYL) 10 MG CAPSULE Take 1 (one) capsule (10 mg total) by mouth 3 (three) times a day as needed. ONDANSETRON (ZOFRAN) 4 MG TABLET Take 1 (one) tablet (4 mg total) by mouth every 6 (six) hours as needed for nausea. (Please note that portions of this note may have been completed with a voice recognition software. Efforts were made to correct any errors, but occasionally words are mis-transcribed.) Montse Khan CNP 08/24/172051 This RN went in to discharge patient. Patient still vomiting and complaining of stomach pain. This RN spoke with NAOMY Ross. New orders to be placed. Will not discharge patient at this time. Formatting of this note may be different from the original. ED Attestation ATTENDING NOTE I have personally seen and examined this patient. I have fully participated in the care of this patient. I have reviewed and agree with all pertinent clinical information including history, physical exam, labs, radiographic studies and the plan. I have also reviewed and agree with the medications, allergies and past medical history sections for this patient. My history and exam shows that the patient complained of Chief Complaint Patient presents with Abdominal Pain and had evidence of enteritis on her CT scan. At this time the patient will be symptomatically managed at home with outpatient follow-up.. Electronically signed at 08/24/2017 7:30 PM Pt with chronic pancreatitis and Im having a flare up . PT ambulates through triage with steady gait. S/s worseing since Thursday. in this encounter Pt wants to leave AMA. The midlevel went in and talked to her and is completing AMA paperwork. ED Attestation 47-year-old female with a history of chronic pancreatitis here with concern for a flare of her pancreatitis. States about a month ago she had one alcoholic drink. Denies any since then. She states she is epigastric abdominal pain. It is sharp. It is consistent with previous episodes of pancreatitis. She has no fevers. She has had nausea and vomiting. No diarrhea. Vital signs are stable. She has mild epigastric tenderness. No peritoneal signs. Labs show a lipase of 179. Normal white blood cell count. Otherwise unremarkable. Patient will be treated symptomatically. Likely observation. Will hold off on scanning at this time. This is consistent with previous, overall abdominal exam is benign. I have very low suspicion for pancreatic necrosis or infection or other emergent process. I personally interviewed the patient. I personally examined the patient. I discussed the patient with STIFF NECK LOADER/PA. I agree with the STIFF NECK LOADER/PA treatment plan. I agree with the STIFF NECK LOADER/PA plan of care. I agree with the STIFF NECK LOADER/PA dispo as documented. Formatting of this note may be different from the original. ED PROVIDER NOTE [facility] EMERGENCY DEPART[facility] NAME: Chioma Rainey AGE: 47 y.o. : 1970 VISIT DATE: 03/04/2018 CSN: [id number] PCP: Elie Nichols MD Chief Complaint Patient presents with Abdominal Pain Patient is a 47-year-old female with a history of chronic pancreatitis who presents to the emergency department for evaluation of epigastric abdominal pain. Patient says that she believes that it is an acute pancreatitis flareup because it feels exactly like her normal flareups. Patient reports that she has had epigastric abdominal pain for 2 days. It was gradual onset and has been increasing in intensity. She has sharp achy pain that is constant and is worse when she tries to eat. Pain does not radiate anywhere. Patient says that she has taken Tylenol with some relief of pain. Patient is has associated nausea. She says she vomited 6 times yesterday but has not yet today. Patient also reports having diarrhea. Patient states she last ate last night has not had anything to eat today. Says she has been able to sip on water but has not had a lot to drink. Patient denies chest pain, shortness of breath, lightheadedness, headache, urinary symptoms. Patient says she has pancreatitis due to drinking alcohol. She said she went 7 years without drinking but a month ago she had a drink. She has not had a drink since. Abdominal Pain Pain location: Epigastric Chronicity: Recurrent Pain quality: aching and sharp Onset quality: Gradual Pain radiates to: Does not radiate Pain severity: Moderate Timing: Constant Progression: Worsening Context comment: Chronic pancreatitis Relieved by: Acetaminophen Worsened by: Eating Ineffective treatments: Nothing tried Associated symptoms: diarrhea, nausea and vomiting Associated symptoms: no chest pain, no chills, no dysuria, no fever, no shortness of breath and no sore throat Past Medical History: Diagnosis Date Alcoholic pancreatitis Anemia Chronic abdominal pain Somatoform Disorder Past Surgical History: Procedure Laterality Date CHOLECYSTECTOMY CHOLECYSTECTOMY EGD N/A 09/05/2014 Procedure: EGD; Surgeon: Romain Dumont MD; Location: [facility]; Service: HYSTERECTOMY ORIF PELVIS ORTHOPEDIC SURGERY WISDOM TOOTH EXTRACTION Family History Problem Relation Age of Onset Adopted: Yes Diabetes Mother Hypertension Father Cancer Maternal Grandmother Social History Social History Marital status: Spouse name: N/A Number of children: N/A Years of education: N/A Occupational History Not on file. Social History Main Topics Smoking status: Current Every Day Smoker Packs/day: 1.00 Types: Cigarettes Smokeless tobacco: Never Used Comment: Smokes < 1/2 ppd, smoker for 30+ years Alcohol use No Comment: Prior heavy drinker, quit 8 years ago Drug use: No Sexual activity: Yes Partners: Male Other Topics Concern Not on file Social History Narrative No narrative on file Previous Medications DICYCLOMINE (BENTYL) 10 MG CAPSULE Take 1 (one) capsule (10 mg total) by mouth 3 (three) times a day as needed. ONDANSETRON (ZOFRAN) 4 MG TABLET Take 1 (one) tablet (4 mg total) by mouth every 6 (six) hours as needed for nausea. Allergies Allergen Reactions Penicillin G Anaphylaxis Haldol [Haloperidol] Hives Patient stated that she does not have allergy to Dilaudid. 05/16/16. Ibuprofen Hives Morphine Reglan [Metoclopramide Hcl] Tramadol Hives Review of Systems Constitutional: Negative for chills and fever. HENT: Negative for congestion and sore throat. Eyes: Negative for visual disturbance. Respiratory: Negative for shortness of breath. Cardiovascular: Negative for chest pain. Gastrointestinal: Positive for abdominal pain, diarrhea, nausea and vomiting. Genitourinary: Negative for dysuria. Musculoskeletal: Negative for myalgias. Skin: Negative for wound. Neurological: Negative for light-headedness. Psychiatric/Behavioral: The patient is not nervous/anxious. Patient Vitals for the past 24 hrs: BP Temp Pulse Resp SpO2 Height Weight 03/04/18 1309 108/69 - 79 16 99 % - - 03/04/18 1101 114/75 98.6 F (37 C) 87 18 100 % 5' 2 56.7 kg (125 lb) Physical Exam Constitutional: She is oriented to person, place, and time. She appears well-developed and well-nourished. HENT: Head: Normocephalic and atraumatic. Mouth/Throat: Oropharynx is clear and moist. Eyes: Conjunctivae are normal. Neck: Neck supple. Cardiovascular: Normal rate and regular rhythm. Pulmonary/Chest: Effort normal and breath sounds normal. Abdominal: Soft. Bowel sounds are normal. There is tenderness in the epigastric area. Musculoskeletal: Normal range of motion. Neurological: She is alert and oriented to person, place, and time. Skin: Skin is warm and dry. Psychiatric: She has a normal mood and affect. Her behavior is normal. Laboratory & Radiographic Imaging (if done): Results for orders placed or performed during the hospital encounter of 03/04/18 Chem 7 Result Value Ref Range Sodium 139 135 - 145 mmol/L Potassium 4.4 3.5 - 5.1 mmol/L Chloride 103 98 - 108 mmol/L Bicarbonate 25 21 - 32 mmol/L Creatinine 0.85 0.40 - 1.10 mg/dL Glucose 92 65 - 99 mg/dL BUN 7 (L) 8 - 25 mg/dL eGFR 81 >=60 mL/min/1.73 m2 BUN/Creatinine Ratio 8.2 (L) 10.0 - 20.0 Anion Gap 15 10 - 20 mmol/L Hepatic Function Panel (LFT) Result Value Ref Range Total Protein 7.2 6.0 - 8.0 g/dL Albumin 4.5 3.2 - 5.2 g/dL Total Bilirubin <0.2 0.0 - 1.3 mg/dL Bilirubin, Direct <0.1 0.0 - 0.4 mg/dL Alkaline Phosphatase 97 40 - 150 U/L AST 15 0 - 45 U/L ALT 9 0 - 40 U/L Lipase Result Value Ref Range Lipase 179 (H) 15 - 65 U/L Urinalysis Result Value Ref Range Color, Urine Colorless Colorless, Yellow Clarity, Urine Clear Clear Specific [place] 1.004 (L) 1.005 - 1.025 pH, Urine 7.0 5.0 - 7.0 Protein, Urine Negative Negative mg/dL Glucose, Urine Negative Negative mg/dL Ketones, Urine Negative Negative mg/dL Bilirubin, Urine Negative Negative Urobilinogen, Urine <2.0 <2.0 mg/dL Blood, Urine Negative Negative Nitrite, Urine Negative Negative Leukocyte Esterase, Urine Negative Negative WBCs, Urine <1 0 - 5 /hpf RBCs, Urine 2 0 - 3 /hpf Bacteria, Urine Rare (A) None Seen /hpf Squamous Epithelial 1 0 - 4 /hpf Gold Top Result Value Ref Range Extra Tube Hold for add-ons. Light Blue Top Result Value Ref Range Extra Tube Hold for add-ons. Ruff Top Result Value Ref Range Extra Tube Hold for add-ons. CBC Auto Differential Result Value Ref Range WBC 10.56 4.50 - 11.00 K/mcL RBC 4.59 4.00 - 5.20 M/mcL Hemoglobin 15.4 12.0 - 16.0 g/dL Hematocrit 45.0 36.0 - 46.0 % MCV 98.0 80.0 - 100.0 fL MCH 33.6 26.0 - 34.0 pg MCHC 34.2 31.0 - 37.0 g/dL Platelets 254 150 - 400 K/mcL RDW - CV 12.8 11.6 - 14.8 % MPV 10.1 9.0 - 15.5 fL Neutrophils 69.3 % Lymphocytes 21.0 % Monocytes 7.8 % Eosinophils 0.9 % Basophils 0.7 % IG Percent 0.30 % Neutrophils Abs 7.33 (H) 1.70 - 7.00 K/mcL Lymphocytes Abs 2.22 0.90 - 4.00 K/mcL Monocytes Abs 0.82 0.30 - 0.90 K/mcL Eosinophils Abs 0.09 0.00 - 0.50 K/mcL Basophils Abs 0.07 0.00 - 0.30 K/mcL IG Absolute 0.03 0.00 - 0.30 K/mcL Nucleated RBC 0.0 % Nucleated RBC Abs 0.00 0.00 - 0.00 K/mcL No orders to display Procedures MDM Number of Diagnoses or Management Options Acute on chronic pancreatitis (HCC): Diagnosis management comments: Patient is a 47-year-old female with history of chronic pancreatitis due to alcoholism who presents to the emergency department for evaluation of epigastric abdominal pain for 2 days. Patient has associated nausea and vomiting. Patient says it feels like her previous pancreatitis flareups. Patient presented afebrile with stable vital signs. On exam patient has epigastric abdominal tenderness to palpation. Lungs clear to auscultation bilaterally. Heart RRR. Rest of physical exam unremarkable. CBC and Chem-7 are unremarkable. Lipase is elevated at 179. Patient pain is like her previous flareups and abdominal CT scan is not needed at this time. Patient was treated with fluids, Pepcid, Bentyl with no relief of pain. Patient was given fentanyl with some relief of pain. Patient still complaining of pain. Patient will need to be brought in for chronic pancreatitis in medical observation for pain control and fluids. Patient was admitted for observation and room was assigned and then the patient decided she wanted to leave AMA. Risks just with patient including but patient still wanted to leave AGAINST MEDICAL ADVICE. Patient has family member at bedside and is in agreement. Patient is sound of mind and able to make decisions for herself. . . Clinical Impression: SNOMED CT(R) 1. Acute on chronic pancreatitis (HCC) ACUTE ON CHRONIC PANCREATITIS ED Disposition ED Disposition Condition Comment Hospitalize [facility]ending [facility] [[id number]] Phone call required?: No Follow-up Information Follow-up information has not been specified. Contact information for after-discharge care Follow-up information has not been specified. New Prescriptions No medications on file Konstantin Connolly PA-C 03/04/18 1412 Konstantin Connolly PA-C 03/04/18 1541 Pt sts that she has a history of pancreatitis and believes she is having a flare up.in this encounter Adonis Negro MD - 05/14/2017 6:40 PM EST H&P Notes (unrecognized sect ion and content) Formatting of this note may be different from the original. Adonis Negro MD [facility] History and Physical Patient Name:Chioma Rainey MR #:[id number] :1970 Admit Date: [id number] Physicians: Elie Nichols MD (Family); No ref. provider found (Referring) Perpetual Assessment: Chioma Rainey is a 46 y.o. female who presented from home on 05/14/2017 with abdominal pain, nausea, vomiting and diarrhea. ASSESSMENT AND PLAN Acute on chronic pancreatitis - known h/o chronic pancreatitis, and chronic abdominal pain, celiac blocks - Etiology stated from alcohol abuse, but remains sober for nine years, cont smoking. s/p cholecystectomy. Lipid panel and IgG subclasses ordered. - CT abdomen on admission showing pancreas within normal range. Lipase 137 - Plan for symptomatic and supportive treatment: NPO, IVF, analgesics and antiemetics - Patient has appointment on 06/23/2017 to see GI at [facility] Diarrhea - reports typical for pt's flare-up of pancreatitis - stool study including GI panel, CDT ordered in ED - IVF, bowel rest for now. Somatoform Disorder - Likely play a role in chronic abdominal pain and recurrent flares - Needs to follow up PCP/psych as outpatient Tobacco Abuse - current daily smoker, counseled and cessation adviced Code Status: full DVT Prophylaxis Lovenox Medication Reconciliation Reviewed Comments/Disposition: May resume diet if symptoms improve and hopefully d/c tomorrow. Had GI appointment in June for further evaluation. HISTORY CC: Abdominal pain HPI: Chioma Rainey is a 46 y.o. female with PMH of chronic pancreatitis presented to ED with c/o abdominal pain for one week, worsening associated with nausea, vomiting and diarrhea for 2 days . She has chronic alcoholic pancreatis, but states being sober from etoh since 2008. Pain was mainly located in upper abdomen. She reports numerous watery diarrhea since yesterday and multiple non-bloody, non- bilious emesis today. Symptoms were felt typical for her pancreatitis flare-ups. She denies fever, sob, chest pain, any urinary symptoms. ROS: > > > > > > > > > > The following system(s) were reviewed. Pertinent positive and negative findings are noted in the HPI. [x] Const [x] Eyes [x] ENT [x] Resp [x] CV [x] GI [x] [x] Neuro [x] Musc [x] Skin [x] Psych [x] Endo [x] Allergy [x] Heme/Lymph PMH/PSH/SH/FH: Past Medical History: Diagnosis Date Alcoholic pancreatitis Anemia Chronic abdominal pain Somatoform Disorder Past Surgical History: Procedure Laterality Date CHOLECYSTECTOMY CHOLECYSTECTOMY EGD N/A 09/05/2014 Procedure: EGD; Surgeon: Romain Dumont MD; Location: [facility]; Service: HYSTERECTOMY ORIF PELVIS ORTHOPEDIC SURGERY WISDOM TOOTH EXTRACTION Family History Problem Relation Age of Onset Adopted: Yes Diabetes Mother Hypertension Father Cancer Maternal Grandmother Social History Social History Marital status: Spouse name: N/A Number of children: N/A Years of education: N/A Occupational History Not on file. Social History Main Topics Smoking status: Current Every Day Smoker Packs/day: 1.00 Types: Cigarettes Smokeless tobacco: Never Used Comment: Smokes < 1/2 ppd, smoker for 30+ years Alcohol use No Comment: Prior heavy drinker, quit 8 years ago Drug use: No Sexual activity: Yes Partners: Male Other Topics Concern Not on file Social History Narrative No narrative on file Allergy Information: I have reviewed the patient's allergies. Penicillin g; Haldol [haloperidol]; Ibuprofen; Reglan [metoclopramide hcl]; and Tramadol Home Medications: No outpatient prescriptions have been marked as taking for the 05/14/17 encounter (Hospital Encounter). PHYSICAL EXAMINATION > > > > > > > > Vital Signs: Temp: [97.7 ?F (36.5 ?C)-98.1 ?F (36.7 ?C)] 97.7 ?F (36.5 ?C) Heart Rate: [76-95] 76 Resp: [15-18] 18 BP: (113-126)/(75-93) 113/75 GENERAL: In mild distress due to pain, thin. EYES: Conjunctiva and sclera clear, EOMI, PERRL ENT: Hearing intact. Pharynx clear NECK: No adenopathy or thyromegaly CV: RRR, no murmur. No JVD. No edema RESP: Clear, no rales, rhonchi, wheezes or increase in respiratory effort, no use of accessory muscles GI: Non-distended, +BS, soft, RUQ and epigastric tender. No guarding, masses or rebound MUSC: Normal ROM without deformity SKIN: Warm and dry. No rashes. NEURO: Alert, Ox3. Grossly normal motor and sensory exam. No focal deficits PSYCH: Mood and affect are appropriate. Cooperative. Laboratory and Additional Data Acquired or Reviewed: [x] Laboratory [x] Transcriptions [x] Radiology [] Microbiology [x] Cardiology [] Outside Records [x] Medications [] Family Time Spent: in this encounter Reason for Visit (unrecogniz ed section and content) Reason Comments Abdominal Pain Reason Comments Abdominal Pain RUQ, epigstric, onse t 3 days ago. History of pancreatitis Status Reason Specialty Diagnoses / Procedures Referre d By Contact Referred To Contact Diagnoses Acute recurrent pancreatitis Rajeev Tinoco MD [address] [place] [address], [address] [id number] [facility] Reason Comments Abdominal Pain Pt c/o abdominal abelino n, hx of pancreatitis. Onset of pain 10 days ago. Reason Comments Follow-up Patient C/O having f lare up's, Patient went to the ER on the 12/13/2021. Specialty Diagnoses / Procedures Referred By Zia espinal Referred To Contact Diagnoses Recurrent acute pancreatitis History of smoking 25-50 pack years Procedures BONE DENSITY AXIAL (HIP, PELVIS, SPINE) Sabrina Dee MD, MPH [address] [place] [phone] Referral ID Status Reason Start Date Expiration Date V isits Requested Visits Authorized [id number] New Request 12/16/2021 01/10/2023 1 1 Specialty Diagnoses / Procedures Referred By Contmercedes espinal Referred To Contact Diagnoses Recurrent acute pancreatitis Procedures UPPER EUS IA EGD US GUIDED TRANSMURAL INJXN/FIDUCIAL MARKER Sabrina Dee MD, MPH [address] [place] [phone] Referral ID Status Reason Start Date Expiration Date V isits Requested Visits Authorized [id number] New Request 12/16/2021 01/10/2023 1 1 Specialty Diagnoses / Procedures Referred By Contac t Referred To Contact Diagnoses Encounter for screening colonoscopy Procedures SCREENING COLONOSCOPY IA COLON CA SCRN NOT HI RSK IND Sabrina Dee MD, MPH [address] [place] [address] Referral ID Status Reason Start Date Expiration Date V isits Requested Visits Authorized [id number] New Request 12/16/2021 01/10/2023 1 1 Reason Comments Follow-up 6 month follow up Specialty Diagnoses / Procedures Referred By Contac t Referred To Contact Diagnoses Alcohol-induced chronic pancreatitis Procedures UPPER EUS IA ESOPHAGOGASTRODUODENOSCOPY US SCOPE W/ADJ STRXRS Sabrina Dee MD, MPH [address] [place] [address] Referral ID Status Reason Start Date Expiration Date V isits Requested Visits Authorized [id number] New Request 06/16/2022 07/11/2023 1 1 INFORMATION SOURCE (unrecogn ized section and content) DATE CREATED AUTHOR 03/09/2018 [facility] DATE CREATED AUTHOR AUTHOR'S ORGANIZ ATION 03/28/2020 [facility] DATE CREATED AUTHOR AUTHOR'S ORGANIZ ATION 04/08/2021 [facility] DATE CREATED AUTHOR AUTHOR'S ORGANIZ ATION 06/18/2022 [facility] DATE CREATED AUTHOR AUTHOR'S ORGANIZ ATION 08/17/2022 [facility] DATE CREATED AUTHOR AUTHOR'S ORGANIZ ATION 11/28/2022 [facility] Care Teams (unrecognized sec tion and content) Team Status: Inactive Member Role Status Dates NON STAFF Primary Care Provider Active Reinaldo Amor PA-C Emergency Provider Active Team Status: Inactive Member Role Status Dates NON STAFF Primary Care Provider Active Keaton Barnard DO Emergency Provider Active Team Status: Active Member Role Status Dates NON STAFF Primary Care Provider Active Team Status: Inactive Member Role Status Dates NON STAFF Primary Care Provider Active Christa Lopez PA-C Emergency Provider Active Eyeglass Maker Relationship Specialty Start Date End Date Pineda Troy MD [address] [place] [phone] PCP - Referring 1 Gastroenterology 09/25/[address] [facility], Other [address] [place] [place] [address] PCP - General 11/28/19 Eyeglass Maker Relationship Specialty Start Date End Date Pineda Troy MD [address] [place] [phone] PCP - Referring 1 Gastroenterology 09/25/[address] [facility], Other [address] [place] [place] [address] PCP - General 11/28/19 Eyeglass Maker Relationship Specialty Start Date End Date Pineda Troy MD [address] [place] [phone] PCP - Referring 1 Gastroenterology 09/25/[address] [facility], Other [address] [place] [place] [address] PCP - General 11/28/19 Eyeglass Maker Relationship Specialty Start Date End Date Pineda Troy MD [address] [place] [phone] PCP - Referring 1 Gastroenterology 09/25/[address] [facility], Other [address] [place] [facility] [place] [address] PCP - General 11/28/19 Team Status: Inactive Member Role Status Dates NON STAFF Primary Care Provider Active Agustin Llanes MD Emergency Provider Active Eyeglass Maker Relationship Specialty Start Date End Date Pineda Troy MD [address] [place] [phone] PCP - Referring 1 Gastroenterology 09/25/[address] [facility], Other [address] [place] [place] [address] PCP - General 11/28/19 Eyeglass Maker Relationship Specialty Start Date End Date Pineda Troy MD [address] [place] [phone] PCP - Referring 1 Gastroenterology 09/25/[address] [facility], Other [address] [place] [place] [address] PCP - General 11/28/19 Team Status: Inactive Member Role Status Dates NON STAFF Primary Care Provider Active Nicole Posadas APRN Emergency Provider Active Goals (unrecognized section and content) Goals may be documented in a n alternate section FOR RECORDS PERTAINING TO PATIENTS WHO ARE OR HAVE BEEN ENROLLED IN A CHEMICAL DEPENDENCY/SUBSTANCEABUSE PROGRAM, SOME INFORMATION MAY BE OMITTED. This clinical summary was aggregated from multiple sources. Caution should be exercised in using it in the provision of clinical care. This summary normalizes information from multiple sources, and as a consequence, information in this document may materially change the coding, format and clinical context of patient data. In addition, data may be omitted in some cases. CLINICAL DECISIONS SHOULD BE BASED ON THE PRIMARY CLINICAL RECORDS. [facility] [employer] [facility]. provides no warranty or guarantee of the accuracy or completeness of information in this document.
[2023-03-07] MEDS: 0.9 % SODIUM CHLORIDE 1,000 ML 999 ML IV (15:38)
[2023-03-07] MEDS: ONDANSETRON PF 4 MG/2 ML VIAL IV (15:54)
[2023-03-07] MEDS: HYDROMORPHONE HCL 1 MG/ML CARTRIDGE IV (15:54)
[2023-03-07] MEDS: FAMOTIDINE/PF 20 MG/2 ML VIAL IV (15:54)
[2023-03-07 16:08] LABS: Basophils Absolute Auto 0.1 10^3/uL (0.0-0.1); Basophils Percent Auto 0.7 % (0.2-2.0); Eosinophils Absolute Auto 0.1 10^3/uL (0.0-0.7); Eosinophils Percent Auto 0.6 % (0.9-7.0); Hematocrit 45.6 % (36.0-48.0); Hemoglobin 14.8 g/dL (12.0-16.0); Immature Granulocytes Abs Auto 0.06 10^3/uL (0.00-0.03); Immature Granulocytes Pct Auto 0.4 % (0.0-0.5); Lymphocytes Absolute Auto 2.6 10^3/uL (1.2-3.8); Lymphocytes Percent Auto 18.3 % (20.5-60.0); Mean Corpuscular HGB Conc 32.5 g/dL (29.9-35.2); Mean Corpuscular Hemoglobin 32.6 pg (26.7-34.0); Mean Corpuscular Volume 100.4 fL (81.0-99.0); Mean Platelet Volume 10.1 fL (9.5-13.5); Monocytes Percent Auto 6.9 % (1.7-12.0); Neutrophils Absolute Auto 10.4 10^3/uL (1.4-6.5); Neutrophils Percent Auto 73.1 % (43.0-75.0); Platelet Count 273 10^3/uL (150-450); Red Blood Count 4.54 10^6/uL (4.20-5.40); Red Cell Distribution Width 12.8 % (11.0-15.0); White Blood Count 14.2 10^3/uL (4.0-11.0)
[2023-03-07 16:21] LABS: Lactate/Lactic Acid 0.8 mmol/L (0.4-2.0)
[2023-03-07 16:27] LABS: Alanine Aminotransferase 24 U/L (14-59); Albumin Globulin Ratio 1.1; Alkaline Phosphatase 167 U/L (46-116); Amylase 229 U/L (25-115); Anion Gap 13.1; Aspartate Amino Transferase 27 U/L (15-37); BUN Creatinine Ratio 8.5; Bilirubin Total 0.2 mg/dL (0.2-1.0); Calcium 10.3 mg/dL (8.5-10.1); Chloride 100 mmol/L (98-107); Estimated GFR (African America >60 (>=60); Estimated GFR (Non-African Ame >60 (>=60); Globulin 3.8 g/dL; Glucose 99 mg/dL (74-106); Potassium 4.1 mmol/L (3.5-5.1); Sodium 137 mmol/L (136-145); Total Protein 7.8 g/dL (6.4-8.2)
--- NOTE | 2023-03-07 16:39 | ED.GENADUL1 ---
HPI - General Adult General Chief complaint: Abdominal Pain Stated complaint: NAUSEA/VOMITING Time Seen by Provider: 03/07/23 15:06 Source: patient Mode of arrival: walk-in Limitations: no limitations History of Present Illness HPI narrative: Patient is a 52-year-old female well-known to this emergency department with a history of chronic pancreatitis who presents for 1 week history of increasing epigastric discomfort and vomiting. She has a GI specialist, states she has an upcoming endoscopy as her GI specialist is aware of her worsening symptoms over the last several months, she is due to have endoscopy for esophageal dilation. She is currently taking Protonix at home but states she is not able to hold down her Phenergan and her pain is not controlled. She has had no fevers, upper respiratory symptoms. No low abdominal pain or back pain. Related Data Home Medications Medication Instructions Recorded Confirmed ergocalciferol (vitamin D2) 1,250 50,000 unit PO .weekly 08/27/22 12/24/22 mcg (50,000 unit) capsule (Vitamin D2) [id number] 2 cap PO BID 08/27/22 12/24/22 6,000-19,000-30,000 unit capsule,delayed rel (Creon) Previous Rx's Medication Instructions Recorded oxycodone-acetaminophen 5 mg-325 1 tab PO Q6H PRN pain #10 tabs 08/27/22 mg tablet (Percocet) promethazine 25 mg tablet 25 mg PO Q6H PRN nausea and 08/27/22 vomiting #12 tabs hydrocodone 5 mg-acetaminophen 325 1 tab PO Q6H PRN pain #8 tabs 10/14/22 mg tablet albuterol sulfate 90 mcg/actuation 2 inh inhalation QID PRN shortness 11/20/22 aerosol inhaler (ProAir HFA) of breath or wheezing #8.5 grams guaifenesin 600 mg tablet, 600 mg PO Q12H PRN cough #10 tabs 11/20/22 extended release 12 hr (Mucinex) hydrocodone 5 mg-acetaminophen 325 1 tab PO Q4H PRN pain #6 tabs 01/16/23 mg tablet ondansetron 4 mg disintegrating 4 mg PO Q6H PRN nausea and 03/07/23 tablet vomiting #12 tabs oxycodone-acetaminophen 5 mg-325 1 tab PO Q6H PRN pain 4 days #15 12/30/23 mg tablet (Percocet) tabs sucralfate 1 gram tablet (Carafate) 1 g PO Q6H PRN abdominal pain #12 03/07/23 tabs Allergies Allergy/AdvReac Type Severity Reaction Status Date / Time ketorolac [From Toradol] AdvReac Severe Hives Verified 11/19/22 21:52 fentanyl AdvReac Intermediate Verified 11/19/22 21:52 haldol AdvReac Intermediate hives Uncoded 11/19/22 21:52 motrin AdvReac Intermediate hives Uncoded 11/19/22 21:52 tramadol AdvReac Intermediate hives Uncoded 11/19/22 21:52 pcn AdvReac Mild Uncoded 11/19/22 21:52 Review of Systems ROS Constitutional Denies: fever or chills Ears, nose, mouth, and throat Denies: throat pain or nasal congestion Cardiovascular Denies: chest pain Respiratory Denies: shortness of breath Gastrointestinal Reports: abdominal pain, nausea and vomiting; Denies: diarrhea Genitourinary Denies: painful urination Musculoskeletal Denies: back pain Integumentary/Breast Denies: rash Endocrine Denies: excessive urination PFSH PFSH Social History Smoking status: Current every day smoker Exam Narrative Exam Narrative: Gen.: Awake, alert, in no distress Head: Normocephalic, atraumatic ENT: Moist mucous membranes Respiratory: No respiratory distress, lungs clear bilaterally Cardio: Regular rate and rhythm Gastrointestinal: Abdomen is soft, nondistended and mildly tender to palpation in the epigastrium with no guarding or rebound Extremities: Moves extremities equally Psych: Normal mood and affect Neuro: No focal neuro deficit Skin: Warm, dry, intact Constitutional Vital Signs, click to edit/add: Last Vital Signs Temp 98.9 F 03/07/23 13:25 Pulse 115 H 03/07/23 13:25 Resp 16 03/07/23 13:25 BP 120/92 H 03/07/23 15:30 Pulse Ox 99 03/07/23 16:11 O2 Del Method Room Air 03/07/23 15:28 Course Vital Signs Vital signs: Vital Signs Temperature 98.9 F 03/07/23 13:25 Pulse Rate 115 H 03/07/23 13:25 Respiratory Rate 16 03/07/23 13:25 Blood Pressure 120/83 03/07/23 13:25 Pulse Oximetry 97 03/07/23 13:25 Oxygen Delivery Method Room Air 03/07/23 13:25 Temperature 98.9 F 03/07/23 13:25 Pulse Rate 115 H 03/07/23 13:25 Respiratory Rate 16 03/07/23 13:25 Blood Pressure 120/92 H 03/07/23 15:30 Pulse Oximetry 99 03/07/23 16:11 Oxygen Delivery Method Room Air 03/07/23 15:28 Medical Decision Making MDM Narrative Medical decision making narrative: Patient noted to have mild leukocytosis and mild elevation of amylase and lipase. She was treated with IV fluids, Dilaudid, Zofran. She is resting comfortably on reevaluation with stable vital signs. I discussed admission with the patient as she has a longstanding history of chronic pancreatitis and requires admission for pain control intermittently. She was offered admission, she states she would like to try outpatient management as she has had similar presentations in the past frequently. She understands she should return to the ER if symptoms change or worsen or she does not tolerate outpatient management. She will be given a short course of Carafate, Zofran, Percocet. Return to the ER if symptoms change or worsen. Medical Records Medical records reviewed: Yes I reviewed the patient's medical records Lab Data Lab results reviewed: Yes I reviewed the patient's lab results Labs: Lab Results 03/07/23 Range/Units 15:25 WBC 14.2 H (4.0-11.0) 10^3/uL RBC 4.54 (4.20-5.40) 10^6/uL Hgb 14.8 (12.0-16.0) g/dL Hct 45.6 (36.0-48.0) % MCV 100.4 H (81.0-99.0) fL MCH 32.6 (26.7-34.0) pg MCHC 32.5 (29.9-35.2) g/dL RDW 12.8 (11.0-15.0) % Plt Count 273 (150-450) 10^3/uL MPV 10.1 (9.5-13.5) fL Neut % (Auto) 73.1 (43.0-75.0) % Lymph % (Auto) 18.3 L (20.5-60.0) % [place] % (Auto) 6.9 (1.7-12.0) % Eos % (Auto) 0.6 L (0.9-7.0) % Baso % (Auto) 0.7 (0.2-2.0) % Neut # (Auto) 10.4 H (1.4-6.5) 10^3/uL Lymph # (Auto) 2.6 (1.2-3.8) 10^3/uL [place] # (Auto) 1.0 H (0.3-0.8) 10^3/uL Eos # (Auto) 0.1 (0.0-0.7) 10^3/uL Baso # (Auto) 0.1 (0.0-0.1) 10^3/uL Abs Immat Gran (auto) 0.06 H (0.00-0.03) 10^3/uL Imm/Tot Granulo (auto) 0.4 (0.0-0.5) % Sodium 137 (136-145) mmol/L Potassium 4.1 (3.5-5.1) mmol/L Chloride 100 (98-107) mmol/L Carbon Dioxide 28.0 (21.0-32.0) mmol/L Anion Gap 13.1 BUN 7.0 (7.0-18.0) mg/dL Creatinine 0.82 (0.55-1.02) mg/dL Est GFR ( Amer) >60 (>=60) Est GFR (Non-Af Amer) >60 (>=60) BUN/Creatinine Ratio 8.5 Glucose 99 (74-106) mg/dL Lactate 0.8 (0.4-2.0) mmol/L Calcium 10.3 H (8.5-10.1) mg/dL Total Bilirubin 0.2 (0.2-1.0) mg/dL AST 27 (15-37) U/L ALT 24 (14-59) U/L Alkaline Phosphatase 167 H (46-116) U/L Total Protein 7.8 (6.4-8.2) g/dL Albumin 4.0 (3.4-5.0) g/dL Globulin 3.8 g/dL Albumin/Globulin Ratio 1.1 Amylase 229 H (25-115) U/L Lipase 275.0 H (16.0-77.0) U/L Discharge Plan Discharge Chief Complaint: Abdominal Pain Clinical Impression: Chronic pancreatitis, Abdominal pain Patient Disposition: Home, Self-Care Time of Disposition Decision: 16:42 Condition: Good Prescriptions / Home Meds: New sucralfate [Carafate] 1 gram tablet 1 g PO Q6H PRN (Reason: abdominal pain) Qty: 12 0RF oxycodone-acetaminophen [Percocet] 5-325 mg tablet 1 tab PO Q6H PRN (Reason: pain) 4 Days Qty: 15 0RF Rx Instructions: R10.9 ondansetron 4 mg tablet,disintegrating 4 mg PO Q6H PRN (Reason: nausea and vomiting) Qty: 12 0RF No Action ergocalciferol (vitamin D2) [Vitamin D2] 1,250 mcg (50,000 unit) capsule 50,000 unit PO .weekly Creon 6,000-19,000 -30,000 unit capsule,delayed release(DR/EC) 2 cap PO BID promethazine 25 mg tablet 25 mg PO Q6H PRN (Reason: nausea and vomiting) Qty: 12 0RF oxycodone-acetaminophen [Percocet] 5-325 mg tablet 1 tab PO Q6H PRN (Reason: pain) Qty: 10 0RF hydrocodone-acetaminophen 5-325 mg tablet 1 tab PO Q6H PRN (Reason: pain) Qty: 8 0RF Rx Instructions: DX: R10.9 guaifenesin [Mucinex] 600 mg tablet extended release 12hr 600 mg PO Q12H PRN (Reason: cough) Qty: 10 0RF albuterol sulfate [ProAir HFA] 90 mcg/actuation HFA aerosol inhaler 2 inh inhalation QID PRN (Reason: shortness of breath or wheezing) Qty: 8.5 0RF hydrocodone-acetaminophen 5-325 mg tablet 1 tab PO Q4H PRN (Reason: pain) Qty: 6 0RF Instructions: Pancreatitis (ED), Acute Abdominal Pain (ED) Stand Alone Forms: Portal Instructions Referrals: [facility] [Primary Care Provider] - 1 week
== END 2023-03-07 17:01 | disposition home or self-care (01) ==
PROVIDERS: Physician Assistant; Emergency Provider Emergency Medicine
DX: R10.9 Unspecified abdominal pain (principal); K86.1 Other chronic pancreatitis; F17.200 Nicotine dependence, unspecified, uncomplicated
CPT/HCPCS: 36415; 80053; 82150; 83605; 83690; 85025; 96374; 96375; 99285; J1170

== ENCOUNTER 2023-03-16 05:27 | Emergency (ER) | payer OTHER, SELFPAY ==
[2023-03-16 05:30] VITALS: BP 125/87; PULSE 104; RESP 16; TEMP 36.7; O2SAT 100; BMI 23.8
--- NOTE | 2023-03-16 05:36 | PC.NURSE ---
Pt reports hx pancreatitis, was seen recently in ED. Pt reports no relief iwth prescribed meds at home.
--- NOTE | 2023-03-16 05:38 | ED_ITS ---
HPI - Abdominal Pain General Chief Complaint: Nausea/Vomiting/Diarrhea Stated Complaint: pancreatitis VOMITING Time Seen by Provider: 03/16/23 05:35 Source: patient Mode of arrival: walk-in Limitations: no limitations History of Present Illness HPI narrative: 52-year-old female presents for abdominal pain. She has a history of chronic pancreatitis and believes she is having a flareup. She points to the epigastr ic area to indicate where the pain is. No hematemesis fever or trauma. 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 Related Data Home Medications Medication Instructions Recorded Confirmed ergocalciferol (vitamin D2) 1,250 50,000 unit PO .weekly 08/27/22 03/16/23 mcg (50,000 unit) capsule (Vitamin D2) [id number] 2 cap PO BID 08/27/22 03/16/23 6,000-19,000-30,000 unit capsule,delayed rel (Creon) Previous Rx's Medication Instructions Recorded oxycodone-acetaminophen 5 mg-325 1 tab PO Q6H PRN pain #10 tabs 08/27/22 mg tablet (Percocet) promethazine 25 mg tablet 25 mg PO Q6H PRN nausea and 08/27/22 vomiting #12 tabs hydrocodone 5 mg-acetaminophen 325 1 tab PO Q6H PRN pain #8 tabs 10/14/22 mg tablet albuterol sulfate 90 mcg/actuation 2 inh inhalation QID PRN shortness 11/20/22 aerosol inhaler (ProAir HFA) of breath or wheezing #8.5 grams guaifenesin 600 mg tablet, 600 mg PO Q12H PRN cough #10 tabs 11/20/22 extended release 12 hr (Mucinex) hydrocodone 5 mg-acetaminophen 325 1 tab PO Q4H PRN pain #6 tabs 01/16/23 mg tablet oxycodone-acetaminophen 5 mg-325 1 tab PO Q6H PRN pain 4 days #15 03/07/23 mg tablet (Percocet) tabs sucralfate 1 gram tablet (Carafate) 1 g PO Q6H PRN abdominal pain #12 03/07/23 tabs Allergies Allergy/AdvReac Type Severity Reaction Status Date / Time ketorolac [From Toradol] AdvReac Severe Hives Verified 03/16/23 05:33 fentanyl AdvReac Intermediate Verified 03/16/23 05:33 haldol AdvReac Intermediate hives Uncoded 03/16/23 05:33 motrin AdvReac Intermediate hives Uncoded 03/16/23 05:33 tramadol AdvReac Intermediate hives Uncoded 03/16/23 05:33 pcn AdvReac Mild Uncoded 03/16/23 05:33 Review of Systems ROS Narrative A ten point review of systems is negative except as noted above. PFSH PFSH Social History Smoking status: Current every day smoker Exam Narrative Exam Narrative: Nurses note and vital signs reviewed and patient is not hypoxic. General: The patient appears well and in no apparent distress. Patient is resting comfortably on cart. Skin: Warm, dry, no pallor noted. There is no rash noted. Head: Normocephalic, atraumatic Eye: Normal conjunctiva, no drainage Ears, Nose, Mouth, and Throat: oral mucosa is moist. Nares patent. Cardiovascular: Regular Rate and Rhythm Respiratory: Patient is in no distress, no accessory muscle use, lungs are clear to auscultation, no wheezing, rales or rhonchi Back: non-tender GI: tenderness present only in the epigastric area. No distention. Musculoskeletal: The patient has no evidence of calf tenderness, no pitting edema, symmetrical pulses noted bilaterally Neurological: A&O, normal speech Psychiatric: Cooperative Constitutional Vital Signs, click to edit/add: Last Vital Signs Temp 98.1 F 03/16/23 05:30 Pulse 104 H 03/16/23 05:30 Resp 16 03/16/23 05:30 BP 125/87 03/16/23 05:30 Pulse Ox 100 03/16/23 05:30 O2 Del Method Room Air 03/16/23 05:30 Course Vital Signs Vital signs: Vital Signs Temperature 98.1 F 03/16/23 05:30 Pulse Rate 104 H 03/16/23 05:30 Respiratory Rate 16 03/16/23 05:30 Blood Pressure 125/87 03/16/23 05:30 Pulse Oximetry 100 03/16/23 05:30 Oxygen Delivery Method Room Air 03/16/23 05:30 Temperature 98.1 F 03/16/23 05:30 Pulse Rate 104 H 03/16/23 05:30 Respiratory Rate 16 03/16/23 05:30 Blood Pressure 125/87 03/16/23 05:30 Pulse Oximetry 100 03/16/23 05:30 Oxygen Delivery Method Room Air 03/16/23 05:30 MDM - Abdominal Pain MDM Narrative Medical decision making narrative: tests are ordered and the patient signed out to Dr. Faria. Differential Diagnosis Differential diagnosis: Likely abdominal pain, constipation, diverticulitis, gastroenteritis, pancreatitis and small bowel obstruction Lab Data Attestation: I reviewed the patient's lab results. Labs: Lab Results 03/16/23 Range/Units 05:37 WBC 7.7 (4.0-11.0) 10^3/uL RBC 4.34 (4.20-5.40) 10^6/uL Hgb 14.2 (12.0-16.0) g/dL Hct 43.3 (36.0-48.0) % MCV 99.8 H (81.0-99.0) fL MCH 32.7 (26.7-34.0) pg MCHC 32.8 (29.9-35.2) g/dL RDW 12.6 (11.0-15.0) % Plt Count 258 (150-450) 10^3/uL MPV 10.2 (9.5-13.5) fL Neut % (Auto) 45.9 (43.0-75.0) % Lymph % (Auto) 37.2 (20.5-60.0) % [place] % (Auto) 12.6 H (1.7-12.0) % Eos % (Auto) 3.0 (0.9-7.0) % Baso % (Auto) 1.2 (0.2-2.0) % Neut # (Auto) 3.5 (1.4-6.5) 10^3/uL Lymph # (Auto) 2.9 (1.2-3.8) 10^3/uL [place] # (Auto) 1.0 H (0.3-0.8) 10^3/uL Eos # (Auto) 0.2 (0.0-0.7) 10^3/uL Baso # (Auto) 0.1 (0.0-0.1) 10^3/uL Abs Immat Gran (auto) 0.01 (0.00-0.03) 10^3/uL Imm/Tot Granulo (auto) 0.1 (0.0-0.5) % Sodium 137 (136-145) mmol/L Potassium 3.4 L (3.5-5.1) mmol/L Chloride 106 (98-107) mmol/L Carbon Dioxide 31.4 (21.0-32.0) mmol/L Anion Gap 3.0 BUN 13.0 (7.0-18.0) mg/dL Creatinine 0.97 (0.55-1.02) mg/dL Est GFR ( Amer) >60 (>=60) Est GFR (Non-Af Amer) >60 (>=60) BUN/Creatinine Ratio 13.4 Glucose 94 (74-106) mg/dL Calcium 10.6 H (8.5-10.1) mg/dL Total Bilirubin 0.2 (0.2-1.0) mg/dL Direct Bilirubin <0.1 (0.0-0.2) mg/dL AST 16 (15-37) U/L ALT 19 (14-59) U/L Alkaline Phosphatase 151 H (46-116) U/L Total Protein 7.0 (6.4-8.2) g/dL Albumin 3.4 (3.4-5.0) g/dL Globulin 3.6 g/dL Albumin/Globulin Ratio 0.9 Amylase 154 H (25-115) U/L Lipase 161.0 H (16.0-77.0) U/L Discharge Plan Discharge Chief Complaint: Nausea/Vomiting/Diarrhea Clinical Impression: Abdominal pain Patient Disposition: Still a Patient Prescriptions / Home Meds: No Action ergocalciferol (vitamin D2) [Vitamin D2] 1,250 mcg (50,000 unit) capsule 50,000 unit PO .weekly Creon 6,000-19,000 -30,000 unit capsule,delayed release(DR/EC) 2 cap PO BID promethazine 25 mg tablet 25 mg PO Q6H PRN (Reason: nausea and vomiting) Qty: 12 0RF oxycodone-acetaminophen [Percocet] 5-325 mg tablet 1 tab PO Q6H PRN (Reason: pain) Qty: 10 0RF hydrocodone-acetaminophen 5-325 mg tablet 1 tab PO Q6H PRN (Reason: pain) Qty: 8 0RF Rx Instructions: DX: R10.9 guaifenesin [Mucinex] 600 mg tablet extended release 12hr 600 mg PO Q12H PRN (Reason: cough) Qty: 10 0RF albuterol sulfate [ProAir HFA] 90 mcg/actuation HFA aerosol inhaler 2 inh inhalation QID PRN (Reason: shortness of breath or wheezing) Qty: 8.5 0RF hydrocodone-acetaminophen 5-325 mg tablet 1 tab PO Q4H PRN (Reason: pain) Qty: 6 0RF sucralfate [Carafate] 1 gram tablet 1 g PO Q6H PRN (Reason: abdominal pain) Qty: 12 0RF oxycodone-acetaminophen [Percocet] 5-325 mg tablet 1 tab PO Q6H PRN (Reason: pain) 4 Days Qty: 15 0RF Rx Instructions: R10.9 Referrals: [facility] [Primary Care Provider] - 1 week
--- OUTSIDE RECORDS SUMMARY | 2023-03-16 05:47 | XMS_ITS | CCD ---
Author Name Unknown Address [address] [place] [address] Organization [facility] Care Team Providers Care Machine Deicer Element Winder Name Role Phone LiElie Unavailable LIDARRICKWA Unavailable Unavailable COPC SACHIN, GENERIC Unavailable Unavailable COPC SACHIN, GENERIC Unavailable Unavailable RUPINDER NEGROI Unavailable Unavailable LI, KEWA Unavailable Unavailable JOANA MENDES Unavailable Unavailable LI, KEWA Unavailable Unavailable ERROL WALTON Unavailable Unavaila ble LI, KEWA Unavailable Unavailable KEERTHI NGUYEN Unavailable Unavailable COPC SACHIN, GENERIC Unavailable Unavailable KEERTHI NGUYEN Unavailable Unavailable LI, KEWA Unavailable Unavailable [facility], [facility] Unavailable Unav ailable EUGENIA SHELTON Unavailable Unavailable [facility], [facility] Unavailable Unav ailable Unavailable Primary Care Provider UnavailRAJEEV Pino Admitting Unavailable RAJEEV TINOCO Attending Unavailable LiDarrickwa Primary Care Provider Unavailable Primary Care Provider UnavailMarya Guajardo Unavailable NON STAFF Primary Care Provider UnavailDO Keaton Thompson Emergency Provider SALMA Amor Emergency Provider SALMA Lopez Emergency Provider [phone] Woodrow ALEXANDER, Pineda Espinal Unavailable [phone] [facility], Other Primary Care Provi mathew NON STAFF Primary Care Provider Unavailflorida Llanes MD Agustin Emergency Provider [phone] DR TRI HANSON Consulting Unavailable JANUSZ ., ARIC Attending Unavailable JANUSZ ., ARIC Admitting Unavailable [facility] Primary Care Unavailable JANUSZ ., ARIC Consulting Unavailable AGUSTIN MADRIGAL Consulting Unavailable YANNI FRASER Attending Unavailable YANNI FRASER Admitting Unavailable [facility] Primary Care Unavailable HEBERT MCPHERSON Consulting Unavailable AMINATA, DR RAJEEV Chan Consulting Unavailable AMINATA, DR RAJEEV Chan Attending Unavailable AMINATA, DR RAJEEV Chan Admitting Unavailable [facility] Primary Care Unavailable JANNY ., ANKIT BOYKIN Consulting Unavailabl e IGGY ., MONIK Attending Unavailable IGGY ., MONIK Admitting Unavailable GRECHNY ., PA [facility]CRETIA [facility]available ANNELIESE, NICK Consulting Unavailable JANUSZ ., ARIC Consulting Unavailable AGUSTIN HIGHTOWER Consulting Unavailable ROLAN EUCEDA Consulting Unavailable AMINATA, DR RAJEEV Chan Consulting Unavailable BRIANNA, DR SHARON Silveira Attending Unavailabl e REINECK, DR SHARON Silveira Ad[facility] Unavailable BRIANNA, DR SHARON Silveira Consulting Unavailabl e HANS ., NAT Consulting Unavailable HANS ., NAT Consulting Unavailable PAY ., DR MACEDO Attending Unavailable PAY ., DR MACEDO Admitting Unavailable [facility] Primary Care Unavailable ANNELIESE, NICK Consulting Unavailable MARIAM COYYL Attending Unavailable ANNELIESE, NICK Admitting Unavailable [facility] Primary Care Unavailable MILADIS BARRERA Consulting Unavailable JANUSZ ., ARIC Attending Unavailable JANUSZ ., ARIC Admitting Unavailable JANUSZ ., ARIC Consulting Unavailable [facility] Primary Care Unavailable ION KRUSE Consulting Unavailable YANNI FRASER Attending Unavailable YANNI FRASER Admitting Unavailable JANNY ., ANKIT BOYKIN Consulting [facility] Unavailable LYNNE PERDOMO Consulting Unavailable JANUSZ ., ARIC Attending Unavailable JANUSZ ., ARIC Admitting Unavailable [facility] Primary Care Unavailable JANUSZ ., ARIC Consulting Unavailable DIAB ., ELENITA Consulting Unavailable DIAB ., ELENITA Attending Unavailable DIAB ., ELENITA Admitting Unavailable [facility] Primary Care Unavailable PAY ., DR MACEDO Consulting Unavailable PAY ., DR MACEDO Attending Unavailable PAY ., DR MACEDO Admitting Unavailable [facility] Primary Care Unavailable NICK COY Consulting Unavailable NICK COY Attending Unavailable NICK COY Admitting Unavailable [facility] Primary Care Unavailable AGUSTIN HIGHTOWER Consulting Unavailable AMINATA, DR RAJEEV Chan Consulting Unavailable TANVIR ., DR GRANT Attending Unavailable HAY ., DR GRANT Admitting Unavailable [facility] Primary Care Unavailable HAY ., DR GRANT Consulting Unavailable [facility] Primary Care Un available STEVE, SOMASHEKAR [...] Primary Care Provider UnavailALEA Stewart Emergency Provider Robb Burris Admitting Unavailable Robb Burris Attending [...] adverse reactions to drug 06-02-19 16 Hives [facility] (19 sources) ibuprofen; Translations: [IBUPROFEN] Propensity to adverse reactions to drug 10-31-19 13 Hives, Swelling [facility] (6 sources) metoclopramide; Translations: [METOCLOPRAMIDE HCL] Propensity to adverse reactions to drug 07-01-19 17 [facility] (6 sources) penicillin g; Translations: [PENICILLIN G] Propensity to adverse reactions to drug 07-25-19 15 Anaphylaxis [facility] (19 sources) traMADol; Translations: [TRAMADOL] Propensity to adverse reactions to drug 07-25-19 15 [facility] (17 sources) morphine; Translations: [MORPHINE] Drug Allergy 07-16-19 18 [facility] (2 sources) Enoxaparin Drug Allergy 08-23-19 20 Itching, Rash [place] (2 sources) Haloperidol Drug Allergy 10-20-19 18 Sw[place] (12 sources) Penicillins Propensity to adverse reactions to drug 10-31-19 13 Anaphylaxis, Swelling [place] (2 sources) Haloperidol; Translations: [Haldol] Drug Allergy 08-10-19 19 Unknown [facility] (6 sources) fentaNYL; Translations: [Fentanyl] Drug Allergy 12-14-19 21 [facility] (5 sources) Ketorolac; Translations: [ketorolac] Drug Allergy 09-26-19 22 [facility] (6 sources) Ketorolac Drug Allergy 12-17-19 22 Hives, Itching [facility] (6 sources) Metoclopramide Drug Allergy 07-20-19 17 Anxiety [facility] (1 source) Ibuprofen Drug Allergy 01-09-20 13 [facility] (1 source) Ketorolac Drug Allergy [facility] (1 source) Morphine Drug Allergy 08-10-19 19 [facility] (1 source) Penicillins Drug allergy (disorder) 01-09-20 13 [facility] (1 source) traMADol Drug Allergy 01-09-20 13 [facility] (1 source) Haloperidol Drug Allergy 11-10-[address] [facility] (1 source) Ibuprofen Drug Allergy 11-10-[address] [facility] (1 source) Morphine Drug Allergy 11-10-[address] [facility] (1 source) Penicillins Drug allergy (disorder) 11-10-[address] [facility] (1 source) traMADol Drug Allergy 11-10-[address] [facility] Repository Medications Current Medications Medication Drug Class(es) Dates Sig (Normalized) Sig (Original) Acetaminophen (1 source) Start: 08-23-2019 acetaminophen (TYLENOL) tablet 650 mg amylase 768983 unt / lipase 27333 unt / protease 04396 unt delayed release oral capsule (8 sources) Start: 12-16-2021 End: 07-16-2022 take 11313-36256 capsules by mouth three times daily Vzpdgq-Fzgwclya-Cdb lase (Creon) 24,000-76,000 -120,000 unit capsule,delayed release(DR/EC) [...] by mouth every week ergocalciferol 1.25 MG (56565 UT) capsule Take 1 capsule by mouth [...] as needed HYDROmorphone (DILAUDID) injection 0.5 mg [place] (No Known Home Meds) (1 source) Start: 10-09-2021 [place] (No Kn own Home Meds) Active October [...] release tablet 5 mg polyethylene glycol 3350 03152 mg powder for oral solution (1 source) [...] 01-28-2022 Chronic Other aftercare (1 source) Other intermediate card tender (current) drug therapy; Translations: [OTH SNF CURRENT DRUG THERAPY] Onset: 04-01-2022 Episodic Other [...] 11-09-2022 ALT [Catalytic activity/Vol] 12 U/L 7-[address] [facility] Albumin [Mass/volume] in Ser um or Plasma by Bromocresol green (BCG) dye binding methoOrdered By: Nicole Posadas on 11-09-2022 Albumin BCG dye [Mass/Vol] 4.4 g/dL 3.5-5.[address] [facility] Alkaline phosphatase [Enzyma tic activity/volume] in Serum or PlasmaOrdered By: Nicole Posadas on 11-09-2022 ALP [Catalytic activity/Vol] 126 U/L 34-[address] [facility] Aspartate aminotransferase [ Enzymatic activity/volume] in Serum or PlasmaOrdered By: Nicole Posadas on 11-09-2022 AST [Catalytic activity/Vol] 17 U/L 13-[address] [facility] Basophils Auto (Bld) [#/Vol] Ordered By: Nicole Posadas on 11-09-2022 Basophils (Bld) [#/Vol] 0.1 10*3/uL 0.0-0.[address] [facility] Basophils/100 WBC Auto (Bld) Ordered By: Nicole Posadas on 11-09-2022 Basophils/100 WBC (Bld) 0.9 % . [facility] Bilirubin Test strip Ql (U)O rdered By: Nicole Posadas on 11-09-2022 Bilirubin Ql (U) Negative Negative [facility] Bilirubin.total [Mass/volume ] in Serum or PlasmaOrdered By: Nicole Posadas on 11-09-2022 Bilirubin [Mass/Vol] 0.3 mg/dL 0.3-1.[address] [facility] CT abdomen pelvis w conon CT abdomen pelvis w con [facility] [place] [place] [address] CT Scan Report Signed Patient: Chioma rAciniega MR#: [id number] : 1970 Acct:[id number] Age/Sex: 52 / F ADM Date: 11/09/22 Loc: ER Room: Type: [facility] ER Attending Dr: Copies to: Nicole Posadas [...] Rajeev Ulloa M.D.11/09/2022 4:14 PM Dictation Location: [place] [address] Transcribed By: [facility] 11/09/22 1614 Dictated By: Rajeev Ulloa II, MD 11/09/22 1608 Signed By: 11/09/22 [address] [facility] Calcium [Mass/volume] in Ser um or PlasmaOrdered By: Nicole Posadas on 11-09-2022 Calcium [Mass/Vol] 9.7 mg/dL 8.6-10.3 [facility] Carbon dioxide, total [Moles /volume] in Serum or PlasmaOrdered By: Nicole Posadas on 11-09-2022 CO2 [Moles/Vol] 28.6 mmol/L 21.0-31.0 [facility] Chloride [Moles/volume] in S erika or PlasmaOrdered By: Nicole Posadas on 11-09-2022 Chloride [Moles/Vol] 107 mmol/L 98-107 [facility] Color Auto (U)Ordered By: Reshma Posadas on 11-09-2022 Color (U) Yellow Yellow [facility] Complete Blood Count Auto Di ffon 11-09-2022 Basophils (Bld) [#/Vol] 0.1 10*3/uL Normal 0.0-0.[address] [facility] Comment on above: Result Comment: PERF ORMED BY: [place] [address] PATHOLOGIST [employer]URANCE AGENT PAULA RODRIGUES M.D. Performed By: #### C BC, LIPASE, CMP #### [facility] [address] [place] [address] Basophils/100 WBC (Bld) 0.9 % Normal . [facility] Comment on above: Performed By: #### C BC, LIPASE, CMP #### [facility] [address] [place] [address] Eosinophils (Bld) [#/Vol] 0.1 10*3/uL Normal 0.0-0.[address] [facility] Comment on above: Performed By: #### C BC, LIPASE, CMP #### [facility] [address] [place] [address] [place] Eosinophils/100 WBC (Bld) 1.6 % Normal . [facility] Comment on above: Performed By: #### C BC, LIPASE, CMP #### [facility] [address] [place] [address] Erythrocyte distribution width (RBC) [Ratio] 13.6 % Normal 11.9-15.[address] [facility] Comment on above: Performed By: #### C BC, LIPASE, CMP #### [facility] [address] [place] [address] [place] Hematocrit (Bld) [Volume fraction] 44.4 % Normal 34.0-46.[address] [facility] Comment on above: Performed By: #### C BC, LIPASE, CMP #### [facility] [address] [place] [address] Hemoglobin (Bld) [Mass/Vol] 14.9 g/dL Normal 11.8-15.[address] [facility] Comment on above: Performed By: #### C BC, LIPASE, CMP #### [facility] [address] [place] [address] [place] Lymphocytes (Bld) [#/Vol] 2.2 10*3/uL Normal 1.00-4.[address] [facility] Comment on above: Performed By: #### C BC, LIPASE, CMP #### [facility] [address] [place] [address] [place] Lymphocytes/100 WBC (Bld) 24.0 % Normal . [facility] Comment on above: Performed By: #### C BC, LIPASE, CMP #### [facility] [address] MCH (RBC) [Entitic mass] 32.8 pg Normal 24.7-34.[address] [facility] Comment on above: Performed By: #### C BC, LIPASE, CMP #### [facility] [address] MCV (RBC) [Entitic vol] 98.2 fL Normal 80-[address] [facility] Comment on above: Performed By: #### C BC, LIPASE, CMP #### [facility] [address] Mean Corpuscular HGB Conc 33.4 g/dL Normal 32.0-35.[address] [facility] Comment on above: Performed By: #### C BC, LIPASE, CMP #### [facility] [address] [place] [address] [place] Monocytes (Bld) [#/Vol] 0.8 10*3/uL Normal 0.0-0.[address] [facility] Comment on above: Performed By: #### C BC, LIPASE, CMP #### [facility] [address] [place] [address] [place] Monocytes/100 WBC (Bld) 18.76 % Normal 0.00-20.[address] [facility] Comment on above: Performed By: #### C BC, LIPASE, CMP #### [facility] [address] [place] [address] [place] Monocytes/100 WBC (Bld) 8.1 % Normal . [facility] Comment on above: Performed By: #### C BC, LIPASE, CMP #### [facility] [address] Neutrophils (Bld) [#/Vol] 6.1 10*3/uL Normal 1.8-7.[address] [facility] Comment on above: Performed By: #### C BC, LIPASE, CMP #### [facility] [address] Neutrophils/100 WBC (Bld) 65.4 % Normal . [facility] Comment on above: Performed By: #### C BC, LIPASE, CMP #### [facility] [address] NRBC% 0.0 /100{WBC} Normal 0-0.[address] [facility] Comment on above: Performed By: #### C BC, LIPASE, CMP #### [facility] [address] Platelet mean volume (Bld) [Entitic vol] 8.3 fL Normal 6.3-10.[address] [facility] Comment on above: Performed By: #### C BC, LIPASE, CMP #### [facility] [address] Platelets (Bld) [#/Vol] 246 10*3/uL Normal 150-[address] [facility] Comment on above: Performed By: #### C BC, LIPASE, CMP #### [facility] [address] RBC (Bld) [#/Vol] 4.52 10*6/uL Normal 3.60-5.00 [facility] Comment on above: Performed By: #### C BC, LIPASE, CMP #### [facility] [address] [place] [address] [place] WBC (Bld) [#/Vol] 9.3 10*3/uL Normal 3.8-11.6 [facility] Comment on above: Performed By: #### C BC, LIPASE, CMP #### [facility] [address] Comprehensive Metabolic Pane demetrio 11-09-2022 Albumin [Mass/Vol] 4.4 g/dL Normal 3.5-5.7 [facility] Comment on above: Performed By: #### C BC, LIPASE, CMP #### [address] Albumin/Globulin [Mass ratio] 1.6 {ratio} Normal [facility] Comment on above: Performed By: #### C BC, LIPASE, CMP #### [address] ALP [Catalytic activity/Vol] 126 U/L High 34-[address] [facility] Comment on above: Performed By: #### C BC, LIPASE, CMP #### [address] ALT [Catalytic activity/Vol] 12 U/L Normal 7-[address] [facility] Comment on above: Performed By: #### C BC, LIPASE, CMP #### [address] Anion gap [Moles/Vol] 8.1 mmol/L Normal 6.0-15.0 [facility] Comment on above: Performed By: #### C BC, LIPASE, CMP #### [address] AST [Catalytic activity/Vol] 17 U/L Normal 13-[address] [facility] Comment on above: Performed By: #### C BC, LIPASE, CMP #### [address] Bilirubin [Mass/Vol] 0.3 mg/dL Normal 0.3-1.0 [facility] Comment on above: Performed By: #### C BC, LIPASE, CMP #### [address] Calcium [Mass/Vol] 9.7 mg/dL Normal 8.6-10.3 [facility] Comment on above: Performed By: #### C BC, LIPASE, CMP #### [address] Chloride [Moles/Vol] 107 mmol/L Normal 98-107 [facility] Comment on above: Performed By: #### C BC, LIPASE, CMP #### [address] CO2 [Moles/Vol] 28.6 mmol/L Normal 21.0-31.0 [facility] Comment on above: Performed By: #### C BC, LIPASE, CMP #### [address] Creatinine [Mass/Vol] 0.78 mg/dL Normal 0.60-1.20 [facility] Comment on above: Performed By: #### C BC, LIPASE, CMP #### [address] Creatinine Clr Calc Pharmacy 69.00 [facility] Comment on above: Performed By: #### C BC, LIPASE, CMP #### [address] GFR/1.73 sq M.predicted MDRD (S/P/Bld) [Vol rate/Area] mL/min/{1.73_m2} [facility] Comment on above: Performed By: #### C BC, LIPASE, CMP #### [address] Globulin (S) [Mass/Vol] 2.7 g/dL [facility] Comment on above: Performed By: #### C BC, LIPASE, CMP #### [address] Glucose [Mass/Vol] 96 mg/dL Normal 70-100 [facility] Comment on above: Result Comment: [place] Glucose Reference Range is dependent on time and content of last meal. Glucose of more than 200 mg/dL in a nonstressed, ambulatory subject supports the diagnosis of Diabetes Mellitus. ADA recommended reference range Performed By: #### C BC, LIPASE, CMP #### [address] Potassium [Moles/Vol] 3.7 mmol/L Normal 3.5-5.1 [facility] Comment on above: Performed By: #### C BC, LIPASE, CMP #### [facility] [address] Protein [Mass/Vol] 7.1 g/dL Normal 6.4-8.9 [facility] Comment on above: Performed By: #### C BC, LIPASE, CMP #### [facility] [address] [place] [address] [place] Sodium [Moles/Vol] 140 mmol/L Normal 136-145 [facility] Comment on above: Performed By: #### C BC, LIPASE, CMP #### [facility] [address] Urea nitrogen [Mass/Vol] 6 mg/dL Low 7-[address] [facility] Comment on above: Performed By: #### C BC, LIPASE, CMP #### [facility] [address] Creatinine [Mass/volume] in Serum or PlasmaOrdered By: Nicole Posadas on 11-09-2022 Creatinine [Mass/Vol] 0.78 mg/dL 0.60-1.20 [facility] ECG 12 lead ECGon 11-09-2022 ECG 12 lead ECG [facility] [place] [address] [place] [address] Electrocardiograph Report Signed Patient: Chioma Arciniega MR#: [id number] : 1970 Acct:[id number] Age/Sex: 52 / F ADM Date: 11/09/22 Loc: ER Room: Type: [facility] ER Attending Dr: Ordering Provider: Nicole Posadas, [...] By Agustin Llanes MD 06/29 [address] [facility] Eosinophils Auto (Bld) [#/Vo l]Ordered By: Nicole Posadas on 11-09-2022 Eosinophils (Bld) [#/Vol] 0.1 10*3/uL 0.0-0.[address] [facility] Eosinophils/100 WBC Auto (Bl d)Ordered By: Nicole Posadas on 11-09-2022 Eosinophils/100 WBC (Bld) 1.6 % . [facility] Erythrocyte distribution wid th Auto (RBC) [Ratio]Ordered By: Nicole Posadas on 11-09-2022 Erythrocyte distribution width (RBC) [Ratio] 13.6 % 11.9-15.[address] [facility] Globulin Calc (S) [Mass/Vol] Ordered By: Nicole Posadas on 11-09-2022 Globulin (S) [Mass/Vol] 2.7 g/dL [facility] Glucose [Mass/volume] in Ser um or PlasmaOrdered By: Nicole Posadas on 11-09-2022 Glucose [Mass/Vol] 96 mg/dL 70-100 [facility] Comment on above: ADA recommended refe rence rangeRandom Glucose Reference Range is dependent on time and content of last meal. Glucose of more than 200 mg/dL in a nonstressed, ambulatory subject supports the diagnosis of Diabetes Mellitus. Hematocrit Auto (Bld) [Volum e fraction]Ordered By: Nicole Posadas on 11-09-2022 Hematocrit (Bld) [Volume fraction] 44.4 % 34.0-46.[address] [facility] Hemoglobin [Mass/volume] in BloodOrdered By: Nicole Posadas on 11-09-2022 Hemoglobin (Bld) [Mass/Vol] 14.9 g/dL 11.8-15.[address] [facility] Ketones Auto test strip (U) [Mass/Vol]Ordered By: Nicole Posadas on 11-09-2022 Ketones (U) [Mass/Vol] Negative Negative [facility] Leukocytes [#/volume] correc aurelia for nucleated erythrocytes in Blood by Automated counOrdered By: Nicole Posadas on 11-09-2022 WBC corrected for nucl RBC Auto (Bld) [#/Vol] 9.3 10*3/uL 3.8-11.[address] [facility] Lipaseon 11-09-2022 Lipase [Catalytic activity/Vol] 78.0 U/L Normal 11.0-82.[address] [facility] Comment on above: Result Comment: PERF ORMED BY: [place] [address] PATHOLOGIST [employer]URANCE AGENT PAULA RODRIGUES M.D. Performed By: #### U A #### [address] Lipase [Enzymatic activity/v olume] in Serum or PlasmaOrdered By: Nicole Posadas on 11-09-2022 Lipase [Catalytic activity/Vol] 78.0 U/L 11.0-82.[address] [facility] Lymphocytes Auto (Bld) [#/Vo l]Ordered By: Nicole Posadas on 11-09-2022 Lymphocytes (Bld) [#/Vol] 2.2 10*3/uL 1.00-4.[address] [facility] Lymphocytes/100 WBC Auto (Bl d)Ordered By: Nicole Posadas on 11-09-2022 Lymphocytes/100 WBC (Bld) 24.0 % . [facility] MCH Auto (RBC) [Entitic mass ]Ordered By: Nicole Posadas on 11-09-2022 MCH (RBC) [Entitic mass] 32.8 pg 24.7-34.[address] [facility] MCHC Auto (RBC) [Mass/Vol]Or dered By: Nicole Posadas on 11-09-2022 MCHC (RBC) [Mass/Vol] 33.4 g/dL 32.0-35.0 [facility] MCV Auto (RBC) [Entitic vol] Ordered By: Nicole Posadas on 11-09-2022 MCV (RBC) [Entitic vol] 98.2 fL 80-[address] [facility] Monocyte distribution width [Entitic volume] in Blood by AutomatedOrdered By: Nicole Posadas on 11-09-2022 Monocyte distribution width Auto (Bld) [Entitic vol] 18.76 % 0.00-20.[address] [facility] Monocytes Auto (Bld) [#/Vol] Ordered By: Nicole Posadas on 11-09-2022 Monocytes (Bld) [#/Vol] 0.8 10*3/uL 0.0-0.[address] [facility] Monocytes/100 WBC Auto (Bld) Ordered By: Nicole Posadas on 11-09-2022 Monocytes/100 WBC (Bld) 8.1 % . [facility] Neutrophils Auto (Bld) [#/Vo l]Ordered By: Nicole Posadas on 11-09-2022 Neutrophils (Bld) [#/Vol] 6.1 10*3/uL 1.8-7.[address] [facility] Neutrophils/100 WBC Auto (Bl d)Ordered By: Nicole Posadas on 11-09-2022 Neutrophils/100 WBC (Bld) 65.4 % . [facility] Nitrite Test strip Ql (U)Ord ered By: Nicole Posadas on 11-09-2022 Nitrite Ql (U) Negative Negative [facility] No Panel InformationOrdered By: Nicole Posadas on 11-09-2022 Estimated GFR (CKD-EPI) > 60.0 mL/Min [facility] Creatinine Clearance (Chem 69.[address] [facility] Nucleated erythrocytes [Pres ence] in Blood by Automated countOrdered By: Nicole Posadas on 11-09-2022 Nucleated RBC Auto Ql (Bld) 0.0 /100{WBC} 0-0.[address] [facility] Platelet mean volume Auto (B ld) [Entitic vol]Ordered By: Nicole Posadas on 11-09-2022 Platelet mean volume (Bld) [Entitic vol] 8.3 fL 6.3-10.[address] [facility] Platelets Auto (Bld) [#/Vol] Ordered By: Nicole Posadas on 11-09-2022 Platelets (Bld) [#/Vol] 246 10*3/uL 150-[address] [facility] Potassium [Moles/volume] in Serum or PlasmaOrdered By: Nicole Posadas on 11-09-2022 Potassium [Moles/Vol] 3.7 mmol/L 3.5-5.1 [facility] Protein Auto test strip (U) [Mass/Vol]Ordered By: Nicole Posadas on 11-09-2022 Protein (U) [Mass/Vol] Negative Negative [facility] Protein [Mass/volume] in Ser um or PlasmaOrdered By: Nicole Posadas on 11-09-2022 Protein [Mass/Vol] 7.1 g/dL 6.4-8.9 [facility] RBC Auto (Bld) [#/Vol]Ordere d By: Nicole Posadas on 11-09-2022 RBC (Bld) [#/Vol] 4.52 10*6/uL 3.60-5.00 [facility] Serum or plasma albumin/glob ulin mass ratioOrdered By: Nicole [facility] Albumin/Globulin [Mass ratio] 1.6 {ratio} [facility] Serum or plasma anion gap de terminationOrdered By: Nicole [facility] on 11-09-2022 Anion gap [Moles/Vol] 8.1 mmol/L 6.0-15.0 [facility] Sodium [Moles/volume] in Ser um or PlasmaOrdered By: Nicole [facility] on 11-09-2022 Sodium [Moles/Vol] 140 mmol/L 136-145 [facility] Specific gravity Auto test s trip (U) [Rel density]Ordered By: [facility] on 11-09-2022 Specific gravity (U) [Rel density] 1.012 1.001-1.[address] [facility] Troponin I High Sensitivityo n 11-09-2022 Troponin I High Sensitivity 3.0 pg/mL Normal 0.0-15.[address] [facility] Comment on above: Result Comment: PERF ORMED BY: [facility] [address] [place] [address] PATHOLOGIST [employer]ERTY [employer]TY INSURANCE AGENT PAULA RODRIGUES M.D. Performed By: #### H S TROP #### [facility] [address] [place] [address] [place] Troponin I.cardiac [Mass/vol ume] in Serum or Plasma by Detection limit <= 0.01 ng/Ordered By: Nicole Posadas on 11-09-2022 Troponin I.cardiac DL <= 0.01 ng/mL [Mass/Vol] 3.0 pg/mL 0.0-15.[address] [facility] Urea nitrogen [Mass/volume] in Serum or PlasmaOrdered By: Nicole Posadas on 11-09-2022 Urea nitrogen [Mass/Vol] 6 mg/dL 09-[address] [facility] Urinalysison 11-09-2022 Appearance (U) Clear Normal Clear [facility] Comment on above: Order Comment: Name Collection Type:: Clean-Voided Midstream Performed By: #### U A #### [facility] [address] [place] [address] [place] Bilirubin,Urine Negative Normal Negative [facility] Comment on above: Order Comment: Name Collection Type:: Clean-Voided Midstream Performed By: #### U A #### [facility] [address] [place] [address] [place] Color (U) Yellow Normal Yellow [facility] Comment on above: Order Comment: Name Collection Type:: Clean-Voided Midstream Performed By: #### U A #### [facility] [address] [place] [address] [place] Glucose Ql (U) Normal Normal Normal [facility] Comment on above: Order Comment: Name Collection Type:: Clean-Voided Midstream Performed By: #### U A #### [facility] [address] [place], [place] [id number] [place] Ketones Ql (U) Negative Normal Negative [facility] Comment on above: Order Comment: Name Collection Type:: Clean-Voided Midstream Performed By: #### U A #### [facility] [address] [place], [place] [id number] [place] Leukocyte esterase Test strip Ql (U) Negative Normal Negative [facility] Comment on above: Order Comment: Name Collection Type:: Clean-Voided Midstream Performed By: #### U A #### [place] [address] [place] Nitrite,Urine Negative Normal Negative [facility] Comment on above: Order Comment: Name Collection Type:: Clean-Voided Midstream Performed By: #### U A #### [address] Occult Blood,Urine Negative Normal Negative [facility] Comment on above: Order Comment: Name Collection Type:: Clean-Voided Midstream Result Comment: PERF ORMED BY: [place] [address] PATHOLOGIST [employer]URANCE AGENT PAULA RODRIGUES M.D. Performed By: #### U A #### [address] pH (U) 5.5 [pH] Normal 5.0-9.[address] [facility] Comment on above: Order Comment: Name Collection Type:: Clean-Voided Midstream Performed By: #### U A #### [address] Protein,Urine Negative Normal Negative [facility] Comment on above: Order Comment: Name Collection Type:: Clean-Voided Midstream Performed By: #### U A #### [address] Specificy [place],Urine 1.012 Normal 1.001-1.[address] [facility] Comment on above: Order Comment: Name Collection Type:: Clean-Voided Midstream Performed By: #### U A #### [address] Urobilinogen,Urine Normal Normal Normal [facility] Comment on above: Order Comment: Name Collection Type:: Clean-Voided Midstream Performed By: #### U A #### [address] Urine clarity by refractomet ry automatedOrdered By: Nicole Posadas on 11-09-2022 Clarity Refractometry automated (U) Clear Clear [facility] Urine glucose measurement by automated test strip (mass/volume)Ordered By: Nicole Posadas on 11-09-2022 Glucose Auto test strip (U) [Mass/Vol] Normal mg/dL Normal [facility] Urine hemoglobin detection b y automated test stripOrdered By: Nicole Posadas on 11-09-2022 Hemoglobin Auto test strip Ql (U) Negative Negative [facility] Urine leukocyte esterase det ection by automated test stripOrdered By: Nciole Posadas on 11-09-2022 Leukocyte esterase Auto test strip Ql (U) Negative Negative [facility] Urobilinogen Auto test strip (U) [Mass/Vol]Ordered By: Nicole Posadas on 11-09-2022 Urobilinogen (U) [Mass/Vol] Normal mg/dL Normal [facility] WBC Auto (Bld) [#/Vol]Ordere d By: Nicole Posadas on 11-09-2022 WBC (Bld) [#/Vol] 9.3 10*3/uL 3.8-11.6 [facility] pH Auto test strip (U)Ordere d By: Nicole Posadas on 11-09-2022 pH (U) 5.5 [pH] 5.0-9.[address] [facility] UPPER EUSon 08-12-2022 [facility] Gastroenterology Patient Name: Chioma Rainey Procedure Date: 08/12/2022 11:09 AM Date of : 1970 Admit Type: Outpatient Age: 52 Room: EUS Proc Room 01 Gender: Female Note Status: Finalized Attending MD: Sabrina Dee MD, MPH, [id number] Procedure: Upper EUS Indications: Chronic pancreatitis, Epigastric abdominal pain, Celiac plexus block for pain secondary to chronic pancreatitis, Dysphagia, Follow-up of esophageal stenosis, For therapy of esophageal stenosis Providers: Sabrina Dee MD, MPH (Doctor), Kolby Gifford RN (Nurse), Elba Faustin (Nurse), Mary Gaviria Bus Driver Supervisor (Bus Driver Supervisor) Referring MD: Elie Nichols MD (Referring MD) [...] by the physician, the nurse and the hospital aide in the procedure room. Mental Status Examination: [...] [facility] Radiology Study observation (narrative) [facility] AMYLASEon 06-13-2022 Amylase [Catalytic activity/Vol] 92 U/L Normal 25-115 [facility] Comment on above: Performed By: #### L IPA, CMP, CRP, NAT #### [facility] [address] [place] [address] Dr. Keturah Fisher CBC AUTO DIFFon 06-13-2022 BASO # 0.1 103/ul Normal 0.0-0.1 [facility] Comment on above: Performed By: #### L IPA, CMP, CRP, NAT #### [facility] [address] [place] [address] Dr. Keturah Fisher Basophils/100 WBC (Bld) 0.7 % Normal 0.2-2.0 [facility] Comment on above: Performed By: #### L IPA, CMP, CRP, NAT #### [facility] [address] [place] [address] Dr. Keturah Fisher EO # 0.1 103/ul Normal 0.0-0.7 [facility] Comment on above: Performed By: #### L IPA, CMP, CRP, NAT #### [facility] [address] [place] [address] Dr. Keturah Fisher Eosinophils/100 WBC (Bld) 1.1 % Normal 0.9-7.0 [facility] Comment on above: Performed By: #### L IPA, CMP, CRP, NAT #### [facility] [address] [place] [address] Dr. Keturah Fisher Erythrocyte distribution width (RBC) [Ratio] 13.0 % Normal 11.0-15.0 [facility] Comment on above: Performed By: #### L IPA, CMP, CRP, NAT #### [facility] [address] [place] [address] Dr. Keturah Fisher Hematocrit (Bld) [Volume fraction] 40.5 % Normal 36.0-48.0 [facility] Comment on above: Performed By: #### L IPA, CMP, CRP, NAT #### [facility] [address] [address] [address] Keturah Fisher Hemoglobin (Bld) [Mass/Vol] 13.9 g/dL Normal 12.0-16.0 [facility] Comment on above: Performed By: #### L IPA, CMP, CRP, NAT #### [facility] [address] [place] [address] Dr. Keturah Fisher IG # 0.03 10e3/ul Normal 0.00-0.03 [facility] Comment on above: Performed By: #### L IPA, CMP, CRP, NAT #### [facility] [address] [place] [address] Dr. Keturah Fisher IG % 0.3 % Normal 0.0-0.5 [facility] Comment on above: Performed By: #### L IPA, CMP, CRP, NAT #### [facility] [address] [place] [address] Dr. Keturah Fisher LYMPH # 2.9 103/ul Normal 1.2-3.8 [facility] Comment on above: Performed By: #### L IPA, CMP, CRP, NAT #### [facility] [address] [place] [address] Dr. Keturah Fisher Lymphocytes/100 WBC (Bld) 25.0 % Normal 20.5-60.0 [facility] Comment on above: Performed By: #### L IPA, CMP, CRP, NAT #### [facility] [address] [place] [address] Dr. Keturah Fisher MANUAL DIFF REQ NO Normal [facility] Comment on above: Performed By: #### L IPA, CMP, CRP, NAT #### [facility] [address] [place] [address] Dr. Keturah Fisher MCH (RBC) [Entitic mass] 33.3 pg Normal 26.7-34.0 [facility] Comment on above: Performed By: #### L IPA, CMP, CRP, NAT #### [facility] [address] [place] [address] Dr. Keturah Fisher MCHC (RBC) [Mass/Vol] 34.3 g/dL Normal 29.9-35.2 [facility] Comment on above: Performed By: #### L IPA, CMP, CRP, NAT #### [facility] [address] [address] [address] Keturah Fisher MCV (RBC) [Entitic vol] 96.9 fL Normal 81.0-99.0 [facility] Comment on above: Performed By: #### L IPA, CMP, CRP, NAT #### [facility] [address] [place] [address] Dr. Keturah Fisher MONO # 0.7 103/ul Normal 0.3-0.8 [facility] Comment on above: Performed By: #### L IPA, CMP, CRP, NAT #### [facility] [address] [place] [address] Dr. Keturah Fisher Monocytes/100 WBC (Bld) 5.6 % Normal 1.7-12.0 [facility] Comment on above: Performed By: #### L IPA, CMP, CRP, NAT #### [facility] [address] [place] [address] Dr. Keturah Fisher NEUT # 7.8 103/ul Critically high 1.4-6.5 [facility] Comment on above: Performed By: #### L IPA, CMP, CRP, NAT #### [facility] [address] [place] [address] Dr. Keturah Fisher Neutrophils/100 WBC (Bld) 67.3 % Normal 43.0-75.0 [facility] Comment on above: Performed By: #### L IPA, CMP, CRP, NAT #### [facility] [address] [place] [address] Dr. Keturah Fisher Platelet mean volume (Bld) [Entitic vol] 9.5 fL Normal 9.5-13.5 [facility] Comment on above: Performed By: #### L IPA, CMP, CRP, NAT #### [facility] [address] [place] [address] Dr. Keturah Fisher PLT 227 103/ul Normal 150-450 [facility] Comment on above: Performed By: #### L IPA, CMP, CRP, NAT #### [facility] [address] [place] [address] Dr. Keturah Fisher RBC 4.18 106/ul Critically low 4.20-5.40 [facility] Comment on above: Performed By: #### L IPA, CMP, CRP, NAT #### [facility] [address] [place] [address] Dr. Keturah Fisher WBC 11.5 103/ul Critically high 4.0-11.0 [facility] Comment on above: Performed By: #### L IPA, CMP, CRP, NAT #### [facility] [address] [place] [address] Dr. Keturah Fisher LIPASEon 06-13-2022 Lipase [Catalytic activity/Vol] 168.0 U/L Normal 73.0-393.0 [facility] Comment on above: Performed By: #### L IPA, CMP, CRP, NAT #### [facility] [address] [place] [address] Dr. Keturah Fisher PROF 14(COMP METB)on 023 Albumin [Mass/Vol] 3.6 g/dL Normal 3.4-5.0 [facility] Comment on above: Performed By: #### L IPA, CMP, CRP, NAT #### [facility] [address] [place] [address] Dr. Keturah Fisher Albumin/Globulin [Mass ratio] 1.1 {ratio} Normal [facility] Comment on above: Performed By: #### L IPA, CMP, CRP, NAT #### [facility] [address] [place] [address] Dr. Keturah Fisher ALP [Catalytic activity/Vol] 132 U/L Critically high 46-116 [facility] Comment on above: Performed By: #### L IPA, CMP, CRP, NAT #### [facility] [address] [place] [address] Dr. Keturah Fisher ALT [Catalytic activity/Vol] 20 U/L Normal 14-59 [facility] Comment on above: Performed By: #### L IPA, CMP, CRP, NAT #### [facility] [address] [place] [address] Dr. Keturah Fisher Anion gap [Moles/Vol] 13.7 mmol/L Normal [facility] Comment on above: Performed By: #### L IPA, CMP, CRP, NAT #### [facility] [address] [address] [address] Keturah Fisher AST [Catalytic activity/Vol] 19 U/L Normal 15-37 [facility] Comment on above: Performed By: #### L IPA, CMP, CRP, NAT #### [facility] [address] [address] [address] Keturah Fisher Bilirubin [Mass/Vol] 0.1 mg/dL Critically low 0.2-1.0 [facility] Comment on above: Performed By: #### L IPA, CMP, CRP, NAT #### [facility] [address] [place] [address] Dr. Keturah Fisher Calcium [Mass/Vol] 10.1 mg/dL Normal 8.5-10.1 [facility] Comment on above: Performed By: #### L IPA, CMP, CRP, NAT #### [facility] [address] [place] [address] Dr. Keturah Fisher Chloride [Moles/Vol] 104 mmol/L Normal 98-107 [facility] Comment on above: Performed By: #### L IPA, CMP, CRP, NAT #### [facility] [address] [place] [address] Dr. Keturah Fisher CO2 [Moles/Vol] 26.7 mmol/L Normal 21.0-32.0 [facility] Comment on above: Performed By: #### L IPA, CMP, CRP, NAT #### [facility] [address] [place] [address] Dr. Keturah Fisher Creatinine [Mass/Vol] 0.83 mg/dL Normal 0.55-1.02 [facility] Comment on above: Performed By: #### L IPA, CMP, CRP, NAT #### [facility] [address] [place] [address] Dr. Keturah Fisher EGFR-AF CITIZEN [place] >60 Normal >=60 [facility] Comment on above: Performed By: #### L IPA, CMP, CRP, NAT #### [facility] [address] [address] [address] Keturah Fisher EGFR-NON AF CITIZEN OF [place] >60 Normal >=60 [facility] Comment on above: Performed By: #### L IPA, CMP, CRP, NAT #### [facility] [address] [address] [address] Keturah Fisher Globulin (S) [Mass/Vol] 3.4 g/dL Normal [facility] Comment on above: Performed By: #### L IPA, CMP, CRP, NAT #### [facility] [address] [address] [address] Keturah Fisher Glucose [Mass/Vol] 115 mg/dL Critically high 74-106 [facility] Comment on above: Performed By: #### L IPA, CMP, CRP, NAT #### [facility] [address] [place] [address] Dr. Keturah Fisher Potassium [Moles/Vol] 3.4 mmol/L Critically low 3.5-5.1 [facility] Comment on above: Performed By: #### L IPA, CMP, CRP, NAT #### [facility] [address] [address] [address] Keturah Fisher Protein [Mass/Vol] 7.0 g/dL Normal 6.4-8.2 [facility] Comment on above: Performed By: #### L IPA, CMP, CRP, NAT #### [facility] [address] [address] [address] Keturah Fisher Sodium [Moles/Vol] 141 mmol/L Normal 136-145 [facility] Comment on above: Performed By: #### L IPA, CMP, CRP, NAT #### [facility] [address] [place] [address] Dr. Keturah Fisher Urea nitrogen [Mass/Vol] 9.0 mg/dL Normal 7.0-18.0 [facility] Comment on above: Performed By: #### L IPA, CMP, CRP, NAT #### [facility] [address] [place] [address] Dr. Keturah Fisher Urea nitrogen/Creatinine [Mass ratio] 10.8 mg/mg Normal [facility] Comment on above: Performed By: #### L IPA, CMP, CRP, NAT #### [facility] [address] [address] [address] Keturah Fisher XR ABD FLAT UP_PA [...] ION KRUSE Date: 2022-06-13 17:10 Normal [facility] AMYLASEon 03-29-2022 Amylase [Catalytic activity/Vol] 141 U/L Critically high 25-115 [facility] Comment on above: Performed By: #### L IVER, LIPA, BMP, NAT ####[facility] [id number] [address]Dr. Keturah Fisher CBC AUTO DIFFon 03-29-2022 BASO # 0.1 103/ul Normal 0.0-0.1 [facility] Comment on above: Performed By: #### L IPA, CMP, CRP, NAT #### [facility] [address] [address] [address] Keturah Fisher Basophils/100 WBC (Bld) 0.6 % Normal 0.2-2.0 [facility] Comment on above: Performed By: #### L IPA, CMP, CRP, NAT #### [facility] [address] [address] [address] Keturah Fisher EO # 0.1 103/ul Normal 0.0-0.7 [facility] Comment on above: Performed By: #### L IPA, CMP, CRP, NAT #### [facility] [address] [address] [address] Keturah Fisher Eosinophils/100 WBC (Bld) 0.7 % Critically low 0.9-7.0 [facility] Comment on above: Performed By: #### L IPA, CMP, CRP, NAT #### [facility] [address] [address] [address] Keturah Fisher Erythrocyte distribution width (RBC) [Ratio] 12.9 % Normal 11.0-15.0 [facility] Comment on above: Performed By: #### L IPA, CMP, CRP, NAT #### [facility] [address] [address] [address] Keturah Fisher Hematocrit (Bld) [Volume fraction] 39.7 % Normal 36.0-48.0 [facility] Comment on above: Performed By: #### L IPA, CMP, CRP, NAT #### [facility] [address] [address] [address] Keturah Fisher Hemoglobin (Bld) [Mass/Vol] 14.7 g/dL Normal 12.0-16.0 [facility] Comment on above: Performed By: #### L IPA, CMP, CRP, NAT #### [facility] [address] [address] [address] Keturah Fisher IG # 0.04 10e3/ul Critically high 0.00-0.03 [facility] Comment on above: Performed By: #### L IPA, CMP, CRP, NAT #### [facility] [address] [address] [address] Keturah Fisher IG % 0.4 % Normal 0.0-0.5 [facility] Comment on above: Performed By: #### L IPA, CMP, CRP, NAT #### [facility] [address] [address] [address] Keturah Fisher LYMPH # 2.1 103/ul Normal 1.2-3.8 [facility] Comment on above: Performed By: #### L IPA, CMP, CRP, NAT #### [facility] [address] [address] [address] Keturah Fisher Lymphocytes/100 WBC (Bld) 21.2 % Normal 20.5-60.0 [facility] Comment on above: Performed By: #### L IPA, CMP, CRP, NAT #### [facility] [address] [place] [address] Dr. Keturah Fisher MANUAL DIFF REQ NO Normal [facility] Comment on above: Performed By: #### L IPA, CMP, CRP, NAT #### [facility] [address] [place] [address] Dr. Keturah Fisher MCH (RBC) [Entitic mass] 33.0 pg Normal 26.7-34.0 [facility] Comment on above: Performed By: #### L IPA, CMP, CRP, NAT #### [facility] [address] [place] [address] Dr. Keturah Fisher MCHC (RBC) [Mass/Vol] 37.0 g/dL Critically high 29.9-35.2 [facility] Comment on above: Performed By: #### L IPA, CMP, CRP, NAT #### [facility] [address] [place] [address] Dr. Keturah Fisher MCV (RBC) [Entitic vol] 89.0 fL Normal 81.0-99.0 [facility] Comment on above: Performed By: #### L IPA, CMP, CRP, NAT #### [facility] [address] [place] [address] Dr. Keturah Fisher MONO # 1.0 103/ul Critically high 0.3-0.8 [facility] Comment on above: Performed By: #### L IPA, CMP, CRP, NAT #### [facility] [address] [place] [address] Dr. Keturah Fisher Monocytes/100 WBC (Bld) 10.3 % Normal 1.7-12.0 [facility] Comment on above: Performed By: #### L IPA, CMP, CRP, NAT #### [facility] [address] [place] [address] Dr. Keturah Fisher NEUT # 6.5 103/ul Normal 1.4-6.5 [facility] Comment on above: Performed By: #### L IPA, CMP, CRP, NAT #### [facility] [address] [address] [address] Keturah Fisher Neutrophils/100 WBC (Bld) 66.8 % Normal 43.0-75.0 [facility] Comment on above: Performed By: #### L IPA, CMP, CRP, NAT #### [facility] [address] [address] [address] Keturah Fisher Platelet mean volume (Bld) [Entitic vol] 9.2 fL Critically low 9.5-13.5 [facility] Comment on above: Performed By: #### L IPA, CMP, CRP, NAT #### [facility] [address] [address] [address] Keturah Fisher PLT 229 103/ul Normal 150-450 [facility] Comment on above: Performed By: #### L IPA, CMP, CRP, NAT #### [facility] [address] [place] [address] Dr. Keturah Fisher RBC 4.46 106/ul Normal 4.20-5.40 [facility] Comment on above: Performed By: #### L IPA, CMP, CRP, NAT #### [facility] [address] [place] [address] Dr. Keturah Fisher WBC 9.7 103/ul Normal 4.0-11.0 [facility] Comment on above: Performed By: #### L IPA, CMP, CRP, NAT #### [facility] [address] [place] [address] Dr. Keturah Fisher LACTATE/LACTIC ACIDon 2022 Lactate [Moles/Vol] 0.5 mmol/L Normal 0.4-1.9 [facility] Comment on above: Performed By: #### L IPA, CMP, CRP, NAT #### [facility] [address] [place] [address] Dr. Keturah Fisher LIPASEon 03-29-2022 Lipase [Catalytic activity/Vol] 308.0 U/L Normal 73.0-393.0 [facility] Comment on above: Performed By: #### L IVER, LIPA, BMP, NAT ####[facility] [id number] [address]Dr. Keturah Fisher LIVER PROFILEon 03-29-2022 Albumin [Mass/Vol] 3.3 g/dL Critically low 3.4-5.0 [facility] Comment on above: Performed By: #### L IVER, LIPA, BMP, NAT ####[facility] [id number] [address]Dr. Keturah Fisher Albumin/Globulin [Mass ratio] 0.8 {ratio} Normal [facility] Comment on above: Performed By: #### L IVER, LIPA, BMP, NAT ####[facility] Qnfdalzttl[address] [place], [place] [address]Dr. Keturah Fisher ALP [Catalytic activity/Vol] 182 U/L Critically high 46-116 [facility] Comment on above: Performed By: #### L IVER, LIPA, BMP, NAT ####[facility] Qikejbfkng[address] [place], [place] [address]Dr. Keturah Fisher ALT [Catalytic activity/Vol] 16 U/L Normal 14-59 [facility] Comment on above: Performed By: #### L IVER, LIPA, BMP, NAT ####[facility] Ygbayockww[address] [place], [place] [address]Dr. Keturah Fisher AST [Catalytic activity/Vol] 26 U/L Normal 15-37 [facility] Comment on above: Performed By: #### L IVER, LIPA, BMP, NAT ####[facility] Ophrxikeac[address] [place], [place] [address]Dr. eKturah Phillip BILI, CONJUGATED 0.0 mg/dL Normal 0.0-0.2 [facility] Comment on above: Performed By: #### L IVER, LIPA, BMP, NAT ####[facility] Ldvim[address]he[address] [place], [place] [address]Dr. Keturah Fisher Bilirubin [Mass/Vol] 0.3 mg/dL Normal 0.2-1.0 [facility] Comment on above: Performed By: #### L IVER, LIPA, BMP, NAT ####[facility] [address] [place] [address]Dr. Keturah Fisher Globulin (S) [Mass/Vol] 3.9 g/dL Normal [facility] Comment on above: Performed By: #### L IVER, LIPA, BMP, NAT ####[facility] [address] [place] [address]Dr. Keturah Fisher Protein [Mass/Vol] 7.2 g/dL Normal 6.4-8.2 [facility] Comment on above: Performed By: #### L IVER, LIPA, BMP, NAT ####[facility] Nhpnsypllt[address] [place], [place] [address]Dr. Keturah Fisher PROF CHEM 8 (BAS METB)on Anion gap [Moles/Vol] 14.6 mmol/L Normal [facility] Comment on above: Performed By: #### L IVER, LIPA, BMP, NAT ####[facility] Uwcmckjstj[address] [place], [place] [address]Dr. Keturah Fisher Calcium [Mass/Vol] 10.1 mg/dL Normal 8.5-10.1 [facility] Comment on above: Performed By: #### L IVHERMINIA, LIPA, BMP, NAT ####[facility] Dfaukewkgd[address] [place], [place] [address]Dr. Keturah Fisher Chloride [Moles/Vol] 104 mmol/L Normal 98-107 [facility] Comment on above: Performed By: #### L IVER, LIPA, BMP, NAT ####[facility] Qtdtqudjhh[address] [place], [place] [address]Dr. Keturah Fisher CO2 [Moles/Vol] 24.8 mmol/L Normal 21.0-32.0 [facility] Comment on above: Performed By: #### L IVER, LIPA, BMP, NAT ####[facility] Yteimfcbad[address] [place], [place] [address]Dr. Keturah Fisher Creatinine [Mass/Vol] 0.61 mg/dL Normal 0.55-1.02 [facility] Comment on above: Performed By: #### L IVER, LIPA, BMP, NAT ####[facility] [address] [place] [address]Dr. Keturah Fisehr EGFR-AF CITIZEN [place] >60 Normal >=60 [facility] Comment on above: Performed By: #### L IVER, LIPA, BMP, NAT ####[facility] [address] [place] [address]Dr. Keturah Fisher EGFR-NON AF CITIZEN OF [place] >60 Normal >=60 [facility] Comment on above: Performed By: #### L IVER, LIPA, BMP, NAT ####[facility] [address] [place] [address]Dr. Keturah Fisher Glucose [Mass/Vol] 98 mg/dL Normal 74-106 [facility] Comment on above: Performed By: #### L IVER, LIPA, BMP, NAT ####[facility] [address] [place] [address]Dr. Keturah Fisher Potassium [Moles/Vol] 4.4 mmol/L Normal 3.5-5.1 [facility] Comment on above: Performed By: #### L IVER, LIPA, BMP, NAT ####[facility] Bwfksrk[address] [place], [place] [address]Dr. Keturah Fisher Sodium [Moles/Vol] 139 mmol/L Normal 136-145 [facility] Comment on above: Performed By: #### L IVER, LIPA, BMP, NAT ####[facility] [address] [place] [address]Dr. Keturah Fisher Urea nitrogen [Mass/Vol] 7.0 mg/dL Normal 7.0-18.0 [facility] Comment on above: Performed By: #### L IVER, LIPA, BMP, NAT ####[facility] [address] [place] [address]Dr. Keturah Fisher Urea nitrogen/Creatinine [Mass ratio] 11.5 mg/mg Normal [facility] Comment on above: Performed By: #### L IVER, LIPA, BMP, NAT ####[facility] [address] [place] [address]Dr. Keturah Fisher Albumin [Mass/volume] in Ser um or PlasmaOrdered By: Agustin Llanes on 03-22-2022 Albumin [Mass/Vol] 4.1 g/dL 3.2-5.5 [facility] Automated erythrocytes count in urine sediment (number/area)Ordered By: Agustin Llanes on 03-22-2022 RBC Auto (Urine sed) [#/Area] 3-4 [HPF] 0-[address] [facility] Automated leukocytes count i n urine sediment (number/area)Ordered By: Agustin Llanes on 03-22-2022 WBC Auto (Urine sed) [#/Area] 10-19 [HPF] 0-[address] [facility] Basic Metabolic Panelon 03-09 Anion gap [Moles/Vol] 12.6 mmol/L Normal 6.0-15.0 [facility] Comment on above: Performed By: #### H EPATIC, LIPASE, CBC, BMP #### [facility] [address] [place] [address] [place] Calcium [Mass/Vol] 9.9 mg/dL Normal 8.2-10.2 [facility] Comment on above: Performed By: #### H EPATIC, LIPASE, CBC, BMP #### [facility] [address] [place] [id number] [place] Chloride [Moles/Vol] 103 mmol/L Normal 95-114 [facility] Comment on above: Performed By: #### H EPATIC, LIPASE, CBC, BMP #### [facility] [address] [place] [id number] [place] CO2 [Moles/Vol] 26.9 mmol/L Normal 22.0-30.0 [facility] Comment on above: Performed By: #### H EPATIC, LIPASE, CBC, BMP #### [facility] [address] [place] [id number] [place] Creatinine [Mass/Vol] 0.74 mg/dL Normal 0.44-1.03 [facility] Comment on above: Performed By: #### H EPATIC, LIPASE, CBC, BMP #### [facility] [address] [place] [id number] [place] Creatinine Clr Calc Pharmacy 70.[address] [facility] Comment on above: Performed By: #### H EPATIC, LIPASE, CBC, BMP #### [facility] [address] Estimated GFR ( [place] > 60 [facility] Comment on above: Result Comment: GFR estimated reference range: According to KDOQI guidelines, <60 ml/min/1.73m2 is sufficient to diagnose a patient with chronic kidney disease. Performed By: #### H EPATIC, LIPASE, CBC, BMP #### [facility] [address] Estimated GFR (Non- Am > 60 [facility] Comment on above: Performed By: #### H EPATIC, LIPASE, CBC, BMP #### [address] Glucose [Mass/Vol] 106 mg/dL High 70-100 [facility] Comment on above: Result Comment: [place] Glucose Reference Range is dependent on time and content of last meal. Glucose of more than 200 mg/dL in a nonstressed, ambulatory subject supports the diagnosis of Diabetes Mellitus. ADA recommended reference range Performed By: #### H EPATIC, LIPASE, CBC, BMP #### [address] Potassium [Moles/Vol] 4.5 mmol/L Normal 3.5-5.1 [facility] Comment on above: Performed By: #### H EPATIC, LIPASE, CBC, BMP #### [address] Sodium [Moles/Vol] 138 mmol/L Normal 136-146 [facility] Comment on above: Performed By: #### H EPATIC, LIPASE, CBC, BMP #### [address] Urea nitrogen [Mass/Vol] 8 mg/dL Low 9-[address] [facility] Comment on above: Performed By: #### H EPATIC, LIPASE, CBC, BMP #### [address] Basophils Auto (Bld) [#/Vol] Ordered By: Agustin Llanes on 03-22-2022 Basophils (Bld) [#/Vol] 0.1 10*3/uL 0.0-0.[address] [facility] Basophils/100 WBC Auto (Bld) Ordered By: Agustin Llanes on 03-22-2022 Basophils/100 WBC (Bld) 0.9 % . [facility] Bilirubin Test strip Ql (U)O rdered By: Agustin Llanes on 03-22-2022 Bilirubin Ql (U) Negative Negative [facility] Color Auto (U)Ordered By: Vita Llanes on 03-22-2022 Color (U) Yellow Yellow [facility] Complete Blood Count Auto Di ffon 03-22-2022 Basophils (Bld) [#/Vol] 0.1 10*3/uL Normal 0.0-0.[address] [facility] Comment on above: Result Comment: PERF ORMED BY: [place] [address] PATHOLOGIST [employer]URANCE AGENT PAULA RODRIGUES M.D. Performed By: #### H EPATIC, LIPASE, CBC, BMP #### [facility] [address] Basophils/100 WBC (Bld) 0.9 % Normal . [facility] Comment on above: Performed By: #### H EPATIC, LIPASE, CBC, BMP #### [facility] [address] [place] [address] [place] Eosinophils (Bld) [#/Vol] 0.1 10*3/uL Normal 0.0-0.[address] [facility] Comment on above: Performed By: #### H EPATIC, LIPASE, CBC, BMP #### [facility] [address] [place] [address] [place] Eosinophils/100 WBC (Bld) 0.7 % Normal . [facility] Comment on above: Performed By: #### H EPATIC, LIPASE, CBC, BMP #### [facility] [address] Erythrocyte distribution width (RBC) [Ratio] 13.9 % Normal 11.9-15.[address] [facility] Comment on above: Performed By: #### H EPATIC, LIPASE, CBC, BMP #### [address] Hematocrit (Bld) [Volume fraction] 45.7 % Normal 34.0-46.[address] [facility] Comment on above: Performed By: #### H EPATIC, LIPASE, CBC, BMP #### [address] Hemoglobin (Bld) [Mass/Vol] 15.2 g/dL Normal 11.8-15.[address] [facility] Comment on above: Performed By: #### H EPATIC, LIPASE, CBC, BMP #### [address] Lymphocytes (Bld) [#/Vol] 2.2 10*3/uL Normal 1.00-4.[address] [facility] Comment on above: Performed By: #### H EPATIC, LIPASE, CBC, BMP #### [address] Lymphocytes/100 WBC (Bld) 18.0 % Normal . [facility] Comment on above: Performed By: #### H EPATIC, LIPASE, CBC, BMP #### [address] MCH (RBC) [Entitic mass] 32.5 pg Normal 24.7-34.[address] [facility] Comment on above: Performed By: #### H EPATIC, LIPASE, CBC, BMP #### [address] MCV (RBC) [Entitic vol] 98.0 fL Normal 80-[address] [facility] Comment on above: Performed By: #### H EPATIC, LIPASE, CBC, BMP #### [address] Mean Corpuscular HGB Conc 33.2 g/dL Normal 32.0-35.[address] [facility] Comment on above: Performed By: #### H EPATIC, LIPASE, CBC, BMP #### [address] Monocytes (Bld) [#/Vol] 1.0 10*3/uL High 0.0-0.[address] [facility] Comment on above: Performed By: #### H EPATIC, LIPASE, CBC, BMP #### [facility] [address] Monocytes/100 WBC (Bld) 18.78 % Normal 0.00-20.[address] [facility] Comment on above: Performed By: #### H EPATIC, LIPASE, CBC, BMP #### [address] Monocytes/100 WBC (Bld) 8.0 % Normal . [facility] Comment on above: Performed By: #### H EPATIC, LIPASE, CBC, BMP #### [facility] [address] [place] [address] Neutrophils (Bld) [#/Vol] 9.0 10*3/uL High 1.8-7.[address] [facility] Comment on above: Performed By: #### H EPATIC, LIPASE, CBC, BMP #### [address] Neutrophils/100 WBC (Bld) 72.4 % Normal . [facility] Comment on above: Performed By: #### H EPATIC, LIPASE, CBC, BMP #### [place] [address] [place] NRBC% 0.0 /100{WBC} Normal 0-0.[address] [facility] Comment on above: Performed By: #### H EPATIC, LIPASE, CBC, BMP #### [facility] [address] [place] [address] [place] Platelet mean volume (Bld) [Entitic vol] 8.0 fL Normal 6.3-10.[address] [facility] Comment on above: Performed By: #### H EPATIC, LIPASE, CBC, BMP #### [facility] [address] [place] [address] [place] Platelets (Bld) [#/Vol] 266 10*3/uL Normal 150-[address] [facility] Comment on above: Performed By: #### H EPATIC, LIPASE, CBC, BMP #### [facility] [address] RBC (Bld) [#/Vol] 4.67 10*6/uL Normal 3.60-5.00 [facility] Comment on above: Performed By: #### H EPATIC, LIPASE, CBC, BMP #### [facility] [address] [place] [address] [place] WBC (Bld) [#/Vol] 12.4 10*3/uL High 3.8-11.6 [facility] Comment on above: Performed By: #### H EPATIC, LIPASE, CBC, BMP #### [facility] [address] Creatinine and Glomerular fi ltration rate.predicted panel (S/P/Bld)Ordered By: Agustin Llanes on 03-22-2022 Creatinine [Mass/Vol] 0.74 mg/dL 0.44-1.03 [facility] Dipstick and Microscopicon 0 03-22-2022 Appearance (U) Clear Normal Clear [facility] Comment on above: Order Comment: Name Collection Type:: Clean-Voided Midstream Performed By: #### U A #### [address] Bacteria,Urine 1+ High None Seen [facility] Comment on above: Order Comment: Name Collection Type:: Clean-Voided Midstream Performed By: #### U A #### [facility] [address] [place] [address] [place] Bilirubin,Urine Negative Normal Negative [facility] Comment on above: Order Comment: Name Collection Type:: Clean-Voided Midstream Performed By: #### U A #### [facility] [address] [place] [address] [place] Color (U) Yellow Normal Yellow [facility] Comment on above: Order Comment: Name Collection Type:: Clean-Voided Midstream Performed By: #### U A #### [facility] [address] [place] [address] [place] Glucose Ql (U) Normal Normal Normal [facility] Comment on above: Order Comment: Name Collection Type:: Clean-Voided Midstream Performed By: #### U A #### [facility] [address] [place] [address] [place] Hyaline Casts,Urine 0-8 Normal 0-8 [facility] Comment on above: Order Comment: Name Collection Type:: Clean-Voided Midstream Performed By: #### U A #### [facility] [address] [place] [address] Ketones Ql (U) Negative Normal Negative [facility] Comment on above: Order Comment: Name Collection Type:: Clean-Voided Midstream Performed By: #### U A #### [address] Leukocyte esterase Test strip Ql (U) 2+ High Negative [facility] Comment on above: Order Comment: Name Collection Type:: Clean-Voided Midstream Performed By: #### U A #### [address] Nitrite,Urine Positive High Negative [facility] Comment on above: Order Comment: Name Collection Type:: Clean-Voided Midstream Performed By: #### U A #### [facility] [address] [place] [address] Occult Blood,Urine Negative Normal Negative [facility] Comment on above: Order Comment: Name Collection Type:: Clean-Voided Midstream Performed By: #### U A #### [facility] [address] [place] [address] pH (U) 5.5 [pH] Normal 5.0-9.[address] [facility] Comment on above: Order Comment: Name Collection Type:: Clean-Voided Midstream Performed By: #### U A #### [facility] [address] [place] [address] [place] Protein,Urine Negative Normal Negative [facility] Comment on above: Order Comment: Name Collection Type:: Clean-Voided Midstream Performed By: #### U A #### [place] [address] [place] RBC,Urine 3-4 Normal 0-[address] [facility] Comment on above: Order Comment: Name Collection Type:: Clean-Voided Midstream Performed By: #### U A #### [facility] [address] [place] [address] Specificy [place],Urine 1.011 Normal 1.001-1.[address] [facility] Comment on above: Order Comment: Name Collection Type:: Clean-Voided Midstream Performed By: #### U A #### [facility] [address] [place] [address] Squamous Epithelial Cell,Urine 1-2 Normal 0-[address] [facility] Comment on above: Order Comment: Name Collection Type:: Clean-Voided Midstream Performed By: #### U A #### [facility] [address] [place] [address] Urobilinogen,Urine Normal Normal Normal [facility] Comment on above: Order Comment: Name Collection Type:: Clean-Voided Midstream Performed By: #### U A #### [facility] [address] [place] [address] WBC,Urine 10-19 High 0-[address] [facility] Comment on above: Order Comment: Name Collection Type:: Clean-Voided Midstream Performed By: #### U A #### [facility] [address] [place] [address] Direct bilirubin measurement Ordered By: Agustin Llanes on 03-22-2022 Bilirubin.direct [Mass/Vol] 0.3 mg/dL 0.0-0.[address] [facility] Eosinophils Auto (Bld) [#/Vo l]Ordered By: Agustin Llanes on 03-22-2022 Eosinophils (Bld) [#/Vol] 0.1 10*3/uL 0.0-0.[address] [facility] Eosinophils/100 WBC Auto (Bl d)Ordered By: Agustin Llanes on 03-22-2022 Eosinophils/100 WBC (Bld) 0.7 % . [facility] Erythrocyte distribution wid th Auto (RBC) [Ratio]Ordered By: Agustin Llanes on 03-22-2022 Erythrocyte distribution width (RBC) [Ratio] 13.9 % 11.9-15.[address] [facility] Estimated glomerular filtrat ion rate (GFR) non- AmericanOrdered By: Agustin Llanes on 03-22-2022 GFR/1.73 sq M.predicted among non-blacks MDRD (S/P/Bld) [Vol rate/Area] > 60 mL/Min [facility] Globulin Calc (S) [Mass/Vol] Ordered By: Agustin Llanes on 03-22-2022 Globulin (S) [Mass/Vol] 3.1 g/dL [facility] HCG ( test) IA.rapi d Ql (U)Ordered By: Agustin Llanes on 03-22-2022 HCG ( test) Ql (U) Negative [facility] HCG,Urineon 03-22-2022 Beta HCG ( test) Ql (U) Negative Normal [facility] Comment on above: Order Comment: Name Collection Type:: Clean-Voided Midstream Result Comment: PERF ORMED BY: [place] [address] PATHOLOGIST [employer]URANCE AGENT PAULA RODRIGUES M.D. Performed By: #### U A #### [address] Hematocrit Auto (Bld) [Volum e fraction]Ordered By: Agustin Llanes on 03-22-2022 Hematocrit (Bld) [Volume fraction] 45.7 % 34.0-46.[address] [facility] Hemoglobin [Mass/volume] in BloodOrdered By: Agustin Llanes on 03-22-2022 Hemoglobin (Bld) [Mass/Vol] 15.2 g/dL 11.8-15.[address] [facility] Hepatic Panelon 03-22-2022 Albumin [Mass/Vol] 4.1 g/dL Normal 3.2-5.5 [facility] Comment on above: Performed By: #### H EPATIC, LIPASE, CBC, BMP #### [facility] [address] [place] [address] Albumin/Globulin [Mass ratio] 1.3 {ratio} Normal [facility] Comment on above: Performed By: #### H EPATIC, LIPASE, CBC, BMP #### [facility] [address] [place] [address] [place] ALP [Catalytic activity/Vol] 156 U/L High 32-[address] [facility] Comment on above: Performed By: #### H EPATIC, LIPASE, CBC, BMP #### [facility] [address] [place] [address] ALT [Catalytic activity/Vol] 19 U/L Normal 10-[address] [facility] Comment on above: Performed By: #### H EPATIC, LIPASE, CBC, BMP #### [facility] [address] AST [Catalytic activity/Vol] 29 U/L Normal 10-[address] [facility] Comment on above: Performed By: #### H EPATIC, LIPASE, CBC, BMP #### [address] Bilirubin [Mass/Vol] 0.5 mg/dL Normal 0.3-1.2 [facility] Comment on above: Performed By: #### H EPATIC, LIPASE, CBC, BMP #### [address] Bilirubin,Indirect 0.2 mg/dL Normal [facility] Comment on above: Performed By: #### H EPATIC, LIPASE, CBC, BMP #### [address] Bilirubin.indirect [Mass/Vol] 0.3 mg/dL Normal 0.0-0.[address] [facility] Comment on above: Performed By: #### H EPATIC, LIPASE, CBC, BMP #### [facility] [address] [place] [address] Globulin (S) [Mass/Vol] 3.1 g/dL Normal [facility] Comment on above: Performed By: #### H EPATIC, LIPASE, CBC, BMP #### [facility] [address] [place] [address] Protein [Mass/Vol] 7.2 g/dL Normal 6.1-7.9 [facility] Comment on above: Performed By: #### H EPATIC, LIPASE, CBC, BMP #### [address] Ketones Auto test strip (U) [Mass/Vol]Ordered By: Agustin Llanes on 03-22-2022 Ketones (U) [Mass/Vol] Negative Negative [facility] - Chemistry and C hemistry - challengeOrdered By: Agustin Llanes on 03-22-2022 Lipase [Catalytic activity/Vol] 122.0 U/L [facility] Laboratory - UrinalysisOrder ed By: Agustin Llanes on 03-22-2022 Hyaline casts LM Ql (Urine sed) 0-8 [LPF] 0-[address] [facility] Leukocytes [#/volume] correc aurelia for nucleated erythrocytes in Blood by Automated counOrdered By: Agustin Llanes on 03-22-2022 WBC corrected for nucl RBC Auto (Bld) [#/Vol] 12.4 10*3/uL 3.8-11.[address] [facility] Lipaseon 03-22-2022 Lipase [Catalytic activity/Vol] 122.0 U/L High [address] [place] [address] Comment on above: Result Comment: PERF ORMED BY: [place] [address] PATHOLOGIST [employer]ANCE AGENT PAULA RODRIGUES M.D. Performed By: #### H EPATIC, LIPASE, CBC, BMP #### [address] Lymphocytes Auto (Bld) [#/Vo l]Ordered By: Agustin Llanes on 03-22-2022 Lymphocytes (Bld) [#/Vol] 2.2 10*3/uL 1.00-4.[address] [facility] Lymphocytes/100 WBC Auto (Bl d)Ordered By: Agustin Llanes on 03-22-2022 Lymphocytes/100 WBC (Bld) 18.0 % . [facility] MCH Auto (RBC) [Entitic mass ]Ordered By: Agustin Llanes on 03-22-2022 MCH (RBC) [Entitic mass] 32.5 pg 24.7-34.[address] [facility] MCHC Auto (RBC) [Mass/Vol]Or dered By: Agustin Llanes on 03-22-2022 MCHC (RBC) [Mass/Vol] 33.2 g/dL 32.0-35.0 [facility] MCV Auto (RBC) [Entitic vol] Ordered By: Agustin Llanes on 03-22-2022 MCV (RBC) [Entitic vol] 98.0 fL 80-[address] [facility] Monocyte distribution width [Entitic volume] in Blood by AutomatedOrdered By: Agustin Llanes on 03-22-2022 Monocyte distribution width Auto (Bld) [Entitic vol] 18.78 % 0.00-20.[address] [facility] Monocytes Auto (Bld) [#/Vol] Ordered By: Agustin Llanes on 03-22-2022 Monocytes (Bld) [#/Vol] 1.0 10*3/uL 0.0-0.[address] [facility] Monocytes/100 WBC Auto (Bld) Ordered By: Agustin Lalnes on 03-22-2022 Monocytes/100 WBC (Bld) 8.0 % . [facility] Neutrophils Auto (Bld) [#/Vo l]Ordered By: Agustin Llanes on 03-22-2022 Neutrophils (Bld) [#/Vol] 9.0 10*3/uL 1.8-7.[address] [facility] Neutrophils/100 WBC Auto (Bl d)Ordered By: Agustin Llanes on 03-22-2022 Neutrophils/100 WBC (Bld) 72.4 % . [facility] Nitrite Test strip Ql (U)Ord ered By: Agustin Llanes on 03-22-2022 Nitrite Ql (U) Positive Negative [facility] No Panel InformationOrdered By: Agustin Llanes on 03-22-2022 Estimated GFR () > 60 mL/Min [facility] Comment on above: GFR estimated refere nce range: According to KDOQI guidelines, <60 ml/min/1.73m2 is sufficient to diagnose a patient with chronic kidney disease. Pharmacy Creatinine Clearance (Chem 70.[address] [facility] Nucleated erythrocytes [Pres ence] in Blood by Automated countOrdered By: Agustin Llanes on 03-22-2022 Nucleated RBC Auto Ql (Bld) 0.0 /100{WBC} 0-0.[address] [facility] Platelet mean volume Auto (B ld) [Entitic vol]Ordered By: Agustin Llanes on 03-22-2022 Platelet mean volume (Bld) [Entitic vol] 8.0 fL 6.3-10.[address] [facility] Platelets Auto (Bld) [#/Vol] Ordered By: Agustin Llanes on 03-22-2022 Platelets (Bld) [#/Vol] 266 10*3/uL 150-[address] [facility] Protein Auto test strip (U) [Mass/Vol]Ordered By: Agustin Llanes on 03-22-2022 Protein (U) [Mass/Vol] Negative Negative Fi [facility] Protein [Mass/volume] in Ser um or PlasmaOrdered By: Agustin Llanes on 03-22-2022 Protein [Mass/Vol] 7.2 g/dL 6.1-7.9 [facility] RBC Auto (Bld) [#/Vol]Ordere d By: Agustin Llanes on 03-22-2022 RBC (Bld) [#/Vol] 4.67 10*6/uL 3.60-5.00 [facility] Serum or plasma alanine hughes otransferase measurement without P-5'-P (enzymatic activiOrdered By: Agustin Llanes on 03-22-2022 ALT No additional P-5'-P [Catalytic activity/Vol] 19 U/L 10-[address] [facility] Serum or plasma albumin/glob ulin mass ratioOrdered By: Agustin Llanes on 03-22-2022 Albumin/Globulin [Mass ratio] 1.3 {ratio} [facility] Serum or plasma alkaline jaqueline sphatase measurement (enzymatic activity/volume)Ordered By: Agustin Llanes on 03-22-2022 ALP [Catalytic activity/Vol] 156 U/L 32-[address] [facility] Serum or plasma anion gap de terminationOrdered By: Agustin Llanes on 03-22-2022 Anion gap [Moles/Vol] 12.6 mmol/L 6.0-15.0 [facility] Serum or plasma aspartate am inotransferase measurement (enzymatic activity/volume)Ordered By: Agustin Llanes on 03-22-2022 AST [Catalytic activity/Vol] 29 U/L 10-[address] [facility] Serum or plasma calcium priscilla urement (mass/volume)Ordered By: Agustin Llanes on 03-22-2022 Calcium [Mass/Vol] 9.9 mg/dL 8.2-10.2 [facility] Serum or plasma chloride adron surement (moles/volume)Ordered By: Agustin Llanes on 03-22-2022 Chloride [Moles/Vol] 103 mmol/L 95-114 [facility] Serum or plasma glucose priscilla urement (mass/volume)Ordered By: Agustin Llanes on 03-22-2022 Glucose [Mass/Vol] 106 mg/dL 70-100 [facility] Comment on above: ADA recommended refe rence rangeRandom Glucose Reference Range is dependent on time and content of last meal. Glucose of more than 200 mg/dL in a nonstressed, ambulatory subject supports the diagnosis of Diabetes Mellitus. Serum or plasma non-glucuron idated bilirubin measurement (mass/volume)Ordered By: Agustin Llanes on 03-22-2022 Bilirubin.indirect [Mass/Vol] 0.2 mg/dL [facility] Serum or plasma potassium me asurement (moles/volume)Ordered By: Agustin Llanes on 03-22-2022 Potassium [Moles/Vol] 4.5 mmol/L 3.5-5.1 [facility] Serum or plasma sodium measu rement (moles/volume)Ordered By: Agustin Llanes on 03-22-2022 Sodium [Moles/Vol] 138 mmol/L 136-146 [facility] Serum or plasma total biliru bin measurement (mass/volume)Ordered By: Agustin Llanes on 03-22-2022 Bilirubin [Mass/Vol] 0.5 mg/dL 0.3-1.2 [facility] Serum or plasma total carbon dioxide measurement (moles/volume)Ordered By: Agustin Llanes on 03-22-2022 CO2 [Moles/Vol] 26.9 mmol/L 22.0-30.0 [facility] Serum or plasma urea nitroge n measurement (mass/volume)Ordered By: Agustin Llanes on 03-22-2022 Urea nitrogen [Mass/Vol] 8 mg/dL 9-[address] [facility] Specific gravity Auto test s trip (U) [Rel density]Ordered By: Agustin Llanes on 03-22-2022 Specific gravity (U) [Rel density] 1.011 1.001-1.[address] [facility] Squamous epithelial cells de tection in urine sediment by light microscopyOrdered By: Agustin Llanes on 03-22-2022 Epithelial cells.squamous LM Ql (Urine sed) 1-2 [HPF] 0-[address] [facility] Urine Cultureon 03-22-2022 Bacteria identified Cx Nom (U) ORGANISM: Escherichia coli (O:ESCCOL) Crenshaw Count >100,000 Aerobic SIMI Charge (NMIC56) --- [...] ALL B-LACTAM DRUGS. PERFORMED BY: [facility] [address] [place] [address] PATHOLOGIST PROPERTY AND CASUALTY INSURANCE AGENT PAULA RODRIGUES M.D. Normal [facility] Comment on above: Performed By: #### U A #### [facility] [address] Urine bacteria detection by automated methodOrdered By: Agustin Llanes on 03-22-2022 Bacteria Auto Ql (U) 1+ None Seen [facility] Urine clarity by refractomet ry automatedOrdered By: Agustin Llanes on 03-22-2022 Clarity Refractometry automated (U) Clear Clear [facility] Urine glucose measurement by automated test strip (mass/volume)Ordered By: Agustin Llanes on 03-22-2022 Glucose Auto test strip (U) [Mass/Vol] Normal mg/dL Normal [facility] Urine hemoglobin detection b y automated test stripOrdered By: Agustin Llanes on 03-22-2022 Hemoglobin Auto test strip Ql (U) Negative Negative [facility] Urine leukocyte esterase det ection by automated test stripOrdered By: Agustin Llanes on 03-22-2022 Leukocyte esterase Auto test strip Ql (U) 2+ Negative [facility] Urobilinogen Auto test strip (U) [Mass/Vol]Ordered By: Agustin Llanes on 03-22-2022 Urobilinogen (U) [Mass/Vol] Normal mg/dL Normal [facility] WBC Auto (Bld) [#/Vol]Ordere d By: Agustin Llanes on 03-22-2022 WBC (Bld) [#/Vol] 12.4 10*3/uL 3.8-11.6 [facility] pH Auto test strip (U)Ordere d By: Agustin Llanes on 03-22-2022 pH (U) 5.5 [pH] 5.0-9.[address] [facility] AMYLASEon 03-19-2022 Amylase [Catalytic activity/Vol] 297 U/L Critically high 25-115 [facility] Comment on above: Performed By: #### L IPA, CMP, CRP, NAT #### [facility] [address] [address] [address] Keturah Fisher CBC AUTO DIFFon 03-19-2022 BASO # 0.1 103/ul Normal 0.0-0.1 [facility] Comment on above: Performed By: #### L IPA, CMP, CRP, NAT #### [facility] [address] [address] [address] Keturah Fisher Basophils/100 WBC (Bld) 0.6 % Normal 0.2-2.0 [facility] Comment on above: Performed By: #### L IPA, CMP, CRP, NAT #### [facility] [address] [place] [address] Dr. Keturah Fisher EO # 0.1 103/ul Normal 0.0-0.7 [facility] Comment on above: Performed By: #### L IPA, CMP, CRP, NAT #### [facility] [address] [place] [address] Dr. Keturah Fisher Eosinophils/100 WBC (Bld) 0.5 % Critically low 0.9-7.0 [facility] Comment on above: Performed By: #### L IPA, CMP, CRP, NAT #### [facility] [address] [place] [address] Dr. Keturah Fisher Erythrocyte distribution width (RBC) [Ratio] 13.4 % Normal 11.0-15.0 [facility] Comment on above: Performed By: #### L IPA, CMP, CRP, NAT #### [facility] [address] [place] [address] Dr. Keturah Fisher Hemoglobin (Bld) [Mass/Vol] 15.7 g/dL Normal 12.0-16.0 [facility] Comment on above: Performed By: #### L IPA, CMP, CRP, NAT #### [facility] [address] [place] [address] Dr. Keturah Fisher IG # 0.06 10e3/ul Critically high 0.00-0.03 [facility] Comment on above: Performed By: #### L IPA, CMP, CRP, NAT #### [facility] [address] [place] [address] Dr. Keturah Fisher IG % 0.4 % Normal 0.0-0.5 [facility] Comment on above: Performed By: #### L IPA, CMP, CRP, NAT #### [facility] [address] [place] [address] Dr. Keturah Fisher LYMPH # 2.6 103/ul Normal 1.2-3.8 [facility] Comment on above: Performed By: #### L IPA, CMP, CRP, NAT #### [facility] [address] [place] [address] Dr. Keturah Fisher Lymphocytes/100 WBC (Bld) 18.1 % Critically low 20.5-60.0 [facility] Comment on above: Performed By: #### L IPA, CMP, CRP, NAT #### [facility] [address] [place] [address] Dr. Keturah Fisher MANUAL DIFF REQ NO Normal [facility] Comment on above: Performed By: #### L IPA, CMP, CRP, NAT #### [facility] [address] [place] [address] Dr. Keturah Fisher MCH (RBC) [Entitic mass] 32.4 pg Normal 26.7-34.0 [facility] Comment on above: Performed By: #### L IPA, CMP, CRP, NAT #### [facility] [address] [place] [address] Dr. Keturah Fisher MCHC (RBC) [Mass/Vol] 32.5 g/dL Normal 29.9-35.2 [facility] Comment on above: Performed By: #### L IPA, CMP, CRP, NAT #### [facility] [address] [place] [address] Dr. Keturah Fisher MCV (RBC) [Entitic vol] 99.8 fL Critically high 81.0-99.0 [facility] Comment on above: Performed By: #### L IPA, CMP, CRP, NAT #### [facility] [address] [place] [address] Dr. Keturah Fisher MONO # 0.9 103/ul Critically high 0.3-0.8 [facility] Comment on above: Performed By: #### L IPA, CMP, CRP, NAT #### [facility] [address] [place] [address] Dr. Keturah Fisher Monocytes/100 WBC (Bld) 5.9 % Normal 1.7-12.0 [facility] Comment on above: Performed By: #### L IPA, CMP, CRP, NAT #### [facility] [address] [place] [address] Dr. Keturah Fisher NEUT # 10.8 103/ul Critically high 1.4-6.5 [facility] Comment on above: Performed By: #### L IPA, CMP, CRP, NAT #### [facility] [address] [place] [address] Dr. Keturah Fisher Neutrophils/100 WBC (Bld) 74.5 % Normal 43.0-75.0 [facility] Comment on above: Performed By: #### L IPA, CMP, CRP, NAT #### [facility] [address] [place] [address] Dr. Keturah Fisher Platelet mean volume (Bld) [Entitic vol] 9.7 fL Normal 9.5-13.5 [facility] Comment on above: Performed By: #### L IPA, CMP, CRP, NAT #### [facility] [address] [place] [address] Dr. Keturah Fisher PLT 279 103/ul Normal 150-450 [facility] Comment on above: Performed By: #### L IPA, CMP, CRP, NAT #### [facility] [address] [place] [address] Dr. Keturah Fisher RBC 4.84 106/ul Normal 4.20-5.40 [facility] Comment on above: Performed By: #### L IPA, CMP, CRP, NAT #### [facility] [address] [place] [address] Dr. Keturah Fisher WBC 14.5 103/ul Critically high 4.0-11.0 [facility] Comment on above: Performed By: #### L IPA, CMP, CRP, NAT #### [facility] [address] [place] [address] ABD/PELVIS WO CONon [...] by: AGUSTIN HIGHTOWER Date: 2022-03-19 19:10 Normal [facility] LIPASEon 03-19-2022 Lipase [Catalytic activity/Vol] 1573.0 U/L Critically high 73.0-393.0 [facility] Comment on above: Performed By: #### L IPA, CMP, CRP, NAT #### [facility] [address] [place], [place] [address] Dr. Keturah Fisher PROF 14(COMP METB)on 023 Albumin [Mass/Vol] 4.3 g/dL Normal 3.4-5.0 [facility] Comment on above: Performed By: #### L IPA, CMP, CRP, NAT #### [facility] [address] [place], [place] [address] Dr. Keturah Fisher Albumin/Globulin [Mass ratio] 1.1 {ratio} Normal [facility] Comment on above: Performed By: #### L IPA, CMP, CRP, NAT #### [facility] [address] [place] [address] Dr. Keturah Fisher ALP [Catalytic activity/Vol] 222 U/L Critically high 46-116 [facility] Comment on above: Performed By: #### L IPA, CMP, CRP, NAT #### [facility] [address] [place] [address] Dr. Keturah Fisher ALT [Catalytic activity/Vol] 18 U/L Normal 14-59 [facility] Comment on above: Performed By: #### L IPA, CMP, CRP, NAT #### [facility] [address] [place] [address] Dr. Keturah Fisher Anion gap [Moles/Vol] 10.7 mmol/L Normal [facility] Comment on above: Performed By: #### L IPA, CMP, CRP, NAT #### [facility] [address] [place] [address] Dr. Keturah Fisher AST [Catalytic activity/Vol] 19 U/L Normal 15-37 [facility] Comment on above: Performed By: #### L IPA, CMP, CRP, NAT #### [facility] [address] [place] [address] Dr. Keturah Fisher Bilirubin [Mass/Vol] 0.2 mg/dL Normal 0.2-1.0 [facility] Comment on above: Performed By: #### L IPA, CMP, CRP, NAT #### [facility] [address] [place] [address] Dr. Keturah Fisher Calcium [Mass/Vol] 10.2 mg/dL Critically high 8.5-10.1 [facility] Comment on above: Performed By: #### L IPA, CMP, CRP, NAT #### [facility] [address] [place] [address] Dr. Keturah Fisher Chloride [Moles/Vol] 101 mmol/L Normal 98-107 [facility] Comment on above: Performed By: #### L IPA, CMP, CRP, NAT #### [facility] [address] [address] [address] Keturah Fisher CO2 [Moles/Vol] 29.1 mmol/L Normal 21.0-32.0 [facility] Comment on above: Performed By: #### L IPA, CMP, CRP, NAT #### [facility] [address] [address] [address] Keturah Fisher Creatinine [Mass/Vol] 0.73 mg/dL Normal 0.55-1.02 [facility] Comment on above: Performed By: #### L IPA, CMP, CRP, NAT #### [facility] [address] [address] [address] Keturah Fisher EGFR-AF CITIZEN [place] >60 Normal >=60 [facility] Comment on above: Performed By: #### L IPA, CMP, CRP, NAT #### [facility] [address] [address] [address] Keturah Fisher EGFR-NON AF CITIZEN OF [place] >60 Normal >=60 [facility] Comment on above: Performed By: #### L IPA, CMP, CRP, NAT #### [facility] [address] [address] [address] Keturah Fisher Globulin (S) [Mass/Vol] 4.0 g/dL Normal [facility] Comment on above: Performed By: #### L IPA, CMP, CRP, NAT #### [facility] [address] [address] [address] Keturah Fisher Glucose [Mass/Vol] 92 mg/dL Normal 74-106 [facility] Comment on above: Performed By: #### L IPA, CMP, CRP, NAT #### [facility] [address] [address] [address] Keturah Fisher Potassium [Moles/Vol] 3.8 mmol/L Normal 3.5-5.1 [facility] Comment on above: Performed By: #### L IPA, CMP, CRP, NAT #### [facility] [address] [address] [address] Keturah Fisher Protein [Mass/Vol] 8.3 g/dL Critically high 6.4-8.2 [facility] Comment on above: Performed By: #### L IPA, CMP, CRP, NAT #### [facility] [address] [address] [address] Keturah Fisher Sodium [Moles/Vol] 137 mmol/L Normal 136-145 [facility] Comment on above: Performed By: #### L IPA, CMP, CRP, NAT #### [facility] [address] [address] [address] Keturah Fisher Urea nitrogen [Mass/Vol] 10.0 mg/dL Normal 7.0-18.0 [facility] Comment on above: Performed By: #### L IPA, CMP, CRP, NAT #### [facility] [address] [address] [address] Keturah Fisher Urea nitrogen/Creatinine [Mass ratio] 13.7 mg/mg Normal [facility] Comment on above: Performed By: #### L IPA, CMP, CRP, NAT #### [facility] [address] [address] [address] Keturah Fisher PROTIMEon 03-19-2022 INR Coag (PPP) [Relative time] {INR} Normal [facility] Comment on above: Performed By: #### P TT, PT ####[facility] [address] [address]DrGopal Fisher INR GUIDELINES SEE BELOW Normal [facility] Comment on above: Result Comment: KARLY RED INR: 2.0 - 3.0 CONDITIONS NOT LISTED BELOW 2.5 - 3.5 FOR PROSTHETIC HEART VALVE REPLACEMENT 2.5 - 3.5 RECURRENT THROMBOSIS Performed By: #### P TT, PT ####[facility] [address] [address]Dr. Keturah Fisher PT Coag (PPP) [Time] 9.4 s Normal 9.0-11.6 [facility] Comment on above: Performed By: #### P TT, PT ####[facility] [address] [address]Dr. Keturah Fisher PTTon 03-19-2022 aPTT Coag (Bld) [Time] 26.1 s Normal 22.3-36.2 Th e [facility] Comment on above: Performed By: #### P TT, PT ####[facility] [address] [place], [place] [address]XhDr. Keturah Fisher TROPONIN, HIGH SENSITIVITYon 03-19-2022 HSTROP 4.0 pg/mL Normal 4.0-51.3 [facility] Comment on above: Result Comment: CUT- OFF POINTS HAVE BEEN ESTABLISHED BASED ON THE FOURTH UNIVERSAL DEFINITIONS OF MYOCARDIAL INFARCTION. THE UPPER REFERENCE LIMIT (URL) OF TROPONIN, DEFINED THE 99TH PERCENTILE OF cTnI DISTRIBUTION IN A REFERENCE POPULATION, HAS BEEN CONFIRMED THE DECISION THRESHOLD FOR NH DIAGNOSIS. Performed By: #### L IPA, CMP, CRP, NAT #### [facility] [address] [place], [place] [address] Dr. Keturah Fisher UPPER EUSon 01-28-2022 [facility] Gastroenterology Patient Name: Chioma Rainey Procedure Date: 01/28/2022 8:55 AM Date of : 1970 Admit Type: Outpatient Age: 51 Room: EUS Proc Room 01 Gender: Female Note Status: Finalized Attending MD: Sabrina Dee MD, MPH, [id number] Procedure: Upper EUS Indications: Chronic pancreatitis, Celiac plexus block for pain secondary to chronic pancreatitis Providers: Sabrina Dee MD, MPH (Doctor), Akilah Gonzales, JOSE LUIS (Nurse), Lara Yost RN (Nurse), Montse Garcia, Bus Driver Supervisor (Bus Driver Supervisor), LOW Velazquez (Anesthesia Staff), Neri Goins MD [...] verified by the physician, the nurse, the hospital aide and the radiation therapy technician in the procedure room. Mental Status Examination: [...] si (more content not included)... LAB, [facility] Radiology Study observation (narrative) [facility] BONE DENSITY AXIAL (HIP, PEL VIS, SPINE)on 01-27-2022 BONE DENSITY AXIAL (HIP, PELVIS, SPINE) EXAM: BONE DENSITY AXIAL (HIP, PELVIS, SPINE) 01/27/2022 15:34 PM TECHNIQUE: DXA scanning using a [employer] Advance bone densitometer at the [facility] was performed on 01/27/2022 15:34 PM CLINICAL [...] interpreted this study is a Certified Clinical Sales Mgr by the International Society of Clinical Densitometry Maulik Reed M.D., CCD. Normal [facility] IMPRESSION: Based on BMD and WHO [...] interpreted this study is a Certified Clinical Sales Mgr by the International Society of Clinical Densitometry Maulik Reed M.D., [facility]. OLOGY EXAM: BONE DENSITY AXIAL (HIP, PELVIS, SPINE) 01/27/2022 15:34 PM TECHNIQUE: DXA scanning using a [employer] Advance bone densitometer at the [facility] was performed on 01/27/2022 15:34 PM CLINICAL [...] 15:34 PM TECHNIQUE: DXA scanning using a [employer] Advance bone densitometer at the [facility] was performed on 01/27/2022 15:34 PM CLINICAL [...] interpreted this study is a Certified Clinical Sales Mgr by the International Society of Clinical Densitometry Maulik Reed M.D., [facility]. [facility] Radiology Study observation (narrative) [facility] BONE DENSITY AXIAL (HIP, PEL VIS, SPINE)Ordered By: Maulik Reed on 01-27-2022 [facility] Work Phone: CBC AUTO DIFFon 01-15-2022 BASO # 0.1 103/ul Normal 0.0-0.1 [facility] Comment on above: Performed By: #### C BC ####[facility] [address] [place], [place] [address]Dr. Keturah Fisher Basophils/100 WBC (Bld) 0.9 % Normal 0.2-2.0 [facility] Comment on above: Performed By: #### C BC ####[facility] [address] [place], [place] [address]DrGopal Fisher EO # 0.2 103/ul Normal 0.0-0.7 [facility] Comment on above: Performed By: #### C BC ####[facility] [address] [place], [place] [address]DrGopal Fisher Eosinophils/100 WBC (Bld) 2.8 % Normal 0.9-7.0 [facility] Comment on above: Performed By: #### C BC ####[facility] [address] [place], [place] [address]DrGopal Fisher Erythrocyte distribution width (RBC) [Ratio] 12.9 % Normal 11.0-15.0 [facility] Comment on above: Performed By: #### C BC ####[facility] [address] [place], [place] [address]DrGopal Fisher Hematocrit (Bld) [Volume fraction] 41.7 % Normal 36.0-48.0 [facility] Comment on above: Performed By: #### C BC ####[facility] [address] [address]Dr. Keturah Fisher Hemoglobin (Bld) [Mass/Vol] 14.0 g/dL Normal 12.0-16.0 [facility] Comment on above: Performed By: #### C BC ####[facility] [address] [place], [place] [address]Dr. Keturah Fisher IG # 0.01 10e3/ul Normal 0.00-0.03 [facility] Comment on above: Performed By: #### C BC ####[facility] [address] [place], [place] [address]Dr. Keturah Phillip IG % 0.1 % Normal 0.0-0.5 [facility] Comment on above: Performed By: #### C BC ####[facility] [address] [place], [place] [address]DrGopal Keturah Phillip LYMPH # 2.4 103/ul Normal 1.2-3.8 [facility] Comment on above: Performed By: #### C BC ####[facility] [address] [place], [place] [address]DrGopal Keturah Phillip Lymphocytes/100 WBC (Bld) 32.0 % Normal 20.5-60.0 [facility] Comment on above: Performed By: #### C BC ####[facility] [address] [place], [place] [address]DrGopal Keturah Phillip MANUAL DIFF REQ NO Normal [facility] Comment on above: Performed By: #### C BC ####[facility] [address] [place], [place] [address]DrGopal Keturah Phillip MCH (RBC) [Entitic mass] 32.6 pg Normal 26.7-34.0 [facility] Comment on above: Performed By: #### C BC ####[facility] [address] [place], [place] [address]DrGopal Keturah Phillip MCHC (RBC) [Mass/Vol] 33.6 g/dL Normal 29.9-35.2 [facility] Comment on above: Performed By: #### C BC ####[facility] [address] [address]DrGopal Fisher MCV (RBC) [Entitic vol] 97.0 fL Normal 81.0-99.0 [facility] Comment on above: Performed By: #### C BC ####[facility] [address] [place], [place] [address]DrGopal Fisher MONO # 0.7 103/ul Normal 0.3-0.8 [facility] Comment on above: Performed By: #### C BC ####[facility] [address] [place], [place] [address]DrGopal Fisher Monocytes/100 WBC (Bld) 9.5 % Normal 1.7-12.0 [facility] Comment on above: Performed By: #### C BC ####[facility] [address] [place], [place] [address]DrGopal Fisher NEUT # 4.1 103/ul Normal 1.4-6.5 [facility] Comment on above: Performed By: #### C BC ####[facility] [address] [place], [place] [address]DrGopal Fisher Neutrophils/100 WBC (Bld) 54.7 % Normal 43.0-75.0 [facility] Comment on above: Performed By: #### C BC ####[facility] [address] [place], [place] [address]DrGopal Fisher Platelet mean volume (Bld) [Entitic vol] 9.6 fL Normal 9.5-13.5 [facility] Comment on above: Performed By: #### C BC ####[facility] [address] [place], [place] [address]DrGopal Fisher PLT 235 103/ul Normal 150-450 [facility] Comment on above: Performed By: #### C BC ####[facility] [address] [place], [place] [address]DrGopal Fisher RBC 4.30 106/ul Normal 4.20-5.40 [facility] Comment on above: Performed By: #### C BC ####[facility] [address] [address]Dr. Keturah Fisher WBC 7.6 103/ul Normal 4.0-11.0 [facility] Comment on above: Performed By: #### C BC ####[facility] [address] [address]Dr. Keturah Fisher ER URINE PROFILEon 2 Bilirubin Ql (U) Negative Normal NEGATIVE [facility] Comment on above: Performed By: #### L IPA, CMP, CRP, NAT #### [facility] [address] [address] [address] Keturah Fisher Clarity (U) CLEAR Normal CLEAR [facility] Comment on above: Performed By: #### L IPA, CMP, CRP, NAT #### [facility] [address] [address] [address] Keturah Fisher Color (U) YELLOW Normal YELLOW [facility] Comment on above: Performed By: #### L IPA, CMP, CRP, NAT #### [facility] [address] [address] [address] Keturah BAH A micrscopic examination will be performed if indicated. Normal [facility] Comment on above: Performed By: #### L IPA, CMP, CRP, NAT #### [facility] [address] [address] [address] Keturah Fisher Glucose Ql (U) Negative Normal NEGATIVE [facility] Comment on above: Performed By: #### L IPA, CMP, CRP, NAT #### [facility] [address] [address] [address] Keturah Fisher Hemoglobin Ql (U) Negative Normal NEGATIVE [facility] Comment on above: Performed By: #### L IPA, CMP, CRP, NAT #### [facility] [address] [address] [address] Keturah Fisher Ketones Ql (U) Negative Normal NEGATIVE [facility] Comment on above: Performed By: #### L IPA, CMP, CRP, NAT #### [facility] [address] [address] [address] Keturah Fisher LEUKOCYTES Negative Normal NEGATIVE [facility] Comment on above: Performed By: #### L IPA, CMP, CRP, NAT #### [facility] [address] [place] [address] Dr. Keturah Fisher Nitrite Ql (U) Negative Normal NEGATIVE [facility] Comment on above: Performed By: #### L IPA, CMP, CRP, NAT #### [facility] [address] [address] [address] Keturah Fisher pH (U) 5.5 [pH] Normal 5-9 [facility] Comment on above: Performed By: #### L IPA, CMP, CRP, NAT #### [facility] [address] [place] [address] Dr. Keturah Fisher SPEC GRAVITY >=1.030 Abnormal 1.005-<=1.0 25 [facility] Comment on above: Performed By: #### L IPA, CMP, CRP, NAT #### [facility] [address] [place] [address] Dr. Keturah Fisher UA PROTEIN Negative Normal NEGATIVE/ TRACE [facility] Comment on above: Performed By: #### L IPA, CMP, CRP, NAT #### [facility] [address] [place] [address] Dr. Keturah Fisher UR MICRO IND NOT INDICATED Normal [facility] Comment on above: Performed By: #### L IPA, CMP, CRP, NAT #### [facility] [address] [place] [address] Dr. Keturah Fisher Urobilinogen Qn (U) 0.2 {Marizol'U}/dL Normal 0.2 - 1. 0 [facility] Comment on above: Performed By: #### L IPA, CMP, CRP, NAT #### [facility] [address] [place] [address] Dr. Keturah Fisher LIPASEon 01-15-2022 Lipase [Catalytic activity/Vol] 572.0 U/L Critically high 73.0-393.0 [facility] Comment on above: Performed By: #### C BC #### [facility] [address] [place] [address] Dr. Keturah Fisher URon 01-15-2022 , QUAL Negative Normal NEGATIVE [facility] Comment on above: Performed By: #### L IPA, CMP, CRP, NAT #### [facility] [address] [place] [address] Dr. Keturah Fisher PROF 14(COMP METB)on 022 Albumin [Mass/Vol] 3.8 g/dL Normal 3.4-5.0 [facility] Comment on above: Performed By: #### C BC #### [facility] [address] [place] [address] Dr. Keturah Fisher Albumin/Globulin [Mass ratio] 1.1 {ratio} Normal [facility] Comment on above: Performed By: #### C BC #### [facility] [address] [place] [address] Dr. Keturah Fisher ALP [Catalytic activity/Vol] 151 U/L Critically high 46-116 [facility] Comment on above: Performed By: #### C BC #### [facility] [address] [place] [address] Dr. Keturah Fisher ALT [Catalytic activity/Vol] 14 U/L Normal 14-59 [facility] Comment on above: Performed By: #### C BC #### [facility] [address] [place] [address] Dr. Keturah Fisher Anion gap [Moles/Vol] 5.5 mmol/L Normal [facility] Comment on above: Performed By: #### C BC #### [facility] [address] [place] [address] Dr. Keturah Fisher AST [Catalytic activity/Vol] 16 U/L Normal 15-37 [facility] Comment on above: Performed By: #### C BC #### [facility] [address] [place] [address] Dr. Keturah Fisher Bilirubin [Mass/Vol] 0.1 mg/dL Critically low 0.2-1.0 [facility] Comment on above: Performed By: #### C BC #### [facility] [address] [address] [address] Keturah Fisher Calcium [Mass/Vol] 9.5 mg/dL Normal 8.5-10.1 [facility] Comment on above: Performed By: #### C BC #### [facility] [address] [address] [address] Keturah Fisher Chloride [Moles/Vol] 105 mmol/L Normal 98-107 [facility] Comment on above: Performed By: #### C BC #### [facility] [address] [address] [address] Keturah Fisher CO2 [Moles/Vol] 30.0 mmol/L Normal 21.0-32.0 [facility] Comment on above: Performed By: #### C BC #### [facility] [address] [place] [address] Dr. Keturah Fisher Creatinine [Mass/Vol] 0.90 mg/dL Normal 0.55-1.02 [facility] Comment on above: Performed By: #### C BC #### [facility] [address] [place] [address] Dr. Keturah Fisher EGFR-AF CITIZEN [place] >60 Normal >=60 [facility] Comment on above: Performed By: #### C BC #### [facility] [address] [place] [address] Dr. Keturah Fisher EGFR-NON AF CITIZEN OF [place] >60 Normal >=60 [facility] Comment on above: Performed By: #### C BC #### [facility] [address] [place] [address] Dr. Keturah Fisher Globulin (S) [Mass/Vol] 3.4 g/dL Normal [facility] Comment on above: Performed By: #### C BC #### [facility] [address] [place] [address] Dr. Keturah Fisher Glucose [Mass/Vol] 82 mg/dL Normal 74-106 [facility] Comment on above: Performed By: #### C BC #### [facility] [address] [place] [address] Dr. Keturah Fisher Potassium [Moles/Vol] 3.5 mmol/L Normal 3.5-5.1 [facility] Comment on above: Performed By: #### C BC #### [facility] [address] [address] [address] Keturah Fisher Protein [Mass/Vol] 7.2 g/dL Normal 6.4-8.2 [facility] Comment on above: Performed By: #### C BC #### [facility] [address] [address] [address] Keturah Fisher Sodium [Moles/Vol] 137 mmol/L Normal 136-145 [facility] Comment on above: Performed By: #### C BC #### [facility] [address] [address] [address] Keturah Fisher Urea nitrogen [Mass/Vol] 12.0 mg/dL Normal 7.0-18.0 [facility] Comment on above: Performed By: #### C BC #### [facility] [address] [address] [address] Keturah Fisher Urea nitrogen/Creatinine [Mass ratio] 13.3 mg/mg Normal [facility] Comment on above: Performed By: #### C BC #### [facility] [address] [address] [address] Keturah Fisher Basic Metabolic Panel 12-07 Anion gap [Moles/Vol] 16.0 mmol/L High 6.0-15.0 [facility] Comment on above: Performed By: #### U A #### [facility] [address] [place] [address] [place] Calcium [Mass/Vol] 10.2 mg/dL Normal 8.2-10.2 [facility] Comment on above: Performed By: #### U A #### [facility] [address] [place] [address] [place] Chloride [Moles/Vol] 102 mmol/L Normal 95-114 [facility] Comment on above: Performed By: #### U A #### [facility] [address] [place] [address] [place] CO2 [Moles/Vol] 23.6 mmol/L Normal 22.0-30.0 [facility] Comment on above: Performed By: #### U A #### [facility] [address] Creatinine [Mass/Vol] 0.90 mg/dL Normal 0.44-1.03 [facility] Comment on above: Performed By: #### U A #### [facility] [address] [place] [address] [place] Creatinine Clr Calc Pharmacy 57.83 [facility] Comment on above: Performed By: #### U A #### [address] Estimated GFR ( [place] > 60 [facility] Comment on above: Result Comment: GFR estimated reference range: According to KDOQI guidelines, <60 ml/min/1.73m2 is sufficient to diagnose a patient with chronic kidney disease. Performed By: #### U A #### [address] Estimated GFR (Non- Am > 60 [facility] Comment on above: Performed By: #### U A #### [address] Glucose [Mass/Vol] 88 mg/dL Normal 70-100 [facility] Comment on above: Result Comment: [place] om Glucose Reference Range is dependent on time and content of last meal. Glucose of more than 200 mg/dL in a nonstressed, ambulatory subject supports the diagnosis of Diabetes Mellitus. ADA recommended reference range Performed By: #### U A #### [place] [address] [place] Potassium [Moles/Vol] 3.6 mmol/L Normal 3.5-5.1 [facility] Comment on above: Performed By: #### U A #### [address] Sodium [Moles/Vol] 138 mmol/L Normal 136-146 [facility] Comment on above: Performed By: #### U A #### [address] Urea nitrogen [Mass/Vol] 7 mg/dL Low 11-[address] [facility] Comment on above: Performed By: #### U A #### [address] Complete Blood Count Auto Di ffon 12-19-2021 Basophils (Bld) [#/Vol] 0.1 10*3/uL Normal 0.0-0.[address] [facility] Comment on above: Result Comment: PERF ORMED BY: [place] [address] PATHOLOGIST [employer] AGENT PAULA RODRIGUES M.D. Performed By: #### U A #### [address] Basophils/100 WBC (Bld) 0.8 % Normal . [facility] Comment on above: Performed By: #### U A #### [address] Eosinophils (Bld) [#/Vol] 0.1 10*3/uL Normal 0.0-0.[address] [facility] Comment on above: Performed By: #### U A #### [address] Eosinophils/100 WBC (Bld) 0.9 % Normal . [facility] Comment on above: Performed By: #### U A #### [address] Erythrocyte distribution width (RBC) [Ratio] 13.7 % Normal 11.9-15.[address] [facility] Comment on above: Performed By: #### U A #### [address] Hematocrit (Bld) [Volume fraction] 44.3 % Normal 34.0-46.[address] [facility] Comment on above: Performed By: #### U A #### [address] Hemoglobin (Bld) [Mass/Vol] 14.6 g/dL Normal 11.8-15.[address] [facility] Comment on above: Performed By: #### U A #### [facility] [address] Lymphocytes (Bld) [#/Vol] 3.0 10*3/uL Normal 1.00-4.[address] [facility] Comment on above: Performed By: #### U A #### [address] Lymphocytes/100 WBC (Bld) 24.0 % Normal . [facility] Comment on above: Performed By: #### U A #### [address] MCH (RBC) [Entitic mass] 32.2 pg Normal 24.7-34.[address] [facility] Comment on above: Performed By: #### U A #### [address] MCV (RBC) [Entitic vol] 97.6 fL Normal 80-[address] [facility] Comment on above: Performed By: #### U A #### [address] Mean Corpuscular HGB Conc 33.0 g/dL Normal 32.0-35.[address] [facility] Comment on above: Performed By: #### U A #### [address] Monocytes (Bld) [#/Vol] 1.0 10*3/uL High 0.0-0.[address] [facility] Comment on above: Performed By: #### U A #### [address] Monocytes/100 WBC (Bld) 7.6 % Normal . [facility] Comment on above: Performed By: #### U A #### [address] Neutrophils (Bld) [#/Vol] 8.5 10*3/uL High 1.8-7.[address] [facility] Comment on above: Performed By: #### U A #### [facility] [address] Neutrophils/100 WBC (Bld) 66.7 % Normal . [facility] Comment on above: Performed By: #### U A #### [facility] [address] Nucleated RBC/100 WBC (Bld) [Ratio] 0.0 % Normal 0-0.[address] [facility] Comment on above: Performed By: #### U A #### [address] Platelet mean volume (Bld) [Entitic vol] 8.2 fL Normal 6.3-10.[address] [facility] Comment on above: Performed By: #### U A #### [address] Platelets (Bld) [#/Vol] 308 10*3/uL Normal 150-[address] [facility] Comment on above: Performed By: #### U A #### [address] RBC (Bld) [#/Vol] 4.54 10*6/uL Normal 3.60-5.00 [facility] Comment on above: Performed By: #### U A #### [address] WBC (Bld) [#/Vol] 12.7 10*3/uL High 4.5-11.0 [facility] Comment on above: Performed By: #### U A #### [address] Hepatic Panelon 12-19-2021 Albumin [Mass/Vol] 4.0 g/dL Normal 3.2-5.5 [facility] Comment on above: Performed By: #### U A #### [address] Albumin/Globulin [Mass ratio] 1.4 {ratio} Normal [facility] Comment on above: Performed By: #### U A #### [facility] [address] [place] [address] ALP [Catalytic activity/Vol] 136 U/L High 32-[address] [facility] Comment on above: Performed By: #### U A #### [address] ALT [Catalytic activity/Vol] 14 U/L Normal 10-[address] [facility] Comment on above: Performed By: #### U A #### [address] AST [Catalytic activity/Vol] 25 U/L Normal 10-[address] [facility] Comment on above: Performed By: #### U A #### [address] Bilirubin [Mass/Vol] 0.5 mg/dL Normal 0.3-1.2 [facility] Comment on above: Performed By: #### U A #### [address] Bilirubin,Indirect 0.4 mg/dL Normal [facility] Comment on above: Performed By: #### U A #### [address] Bilirubin.indirect [Mass/Vol] 0.1 mg/dL Normal 0.0-0.[address] [facility] Comment on above: Performed By: #### U A #### [address] Globulin (S) [Mass/Vol] 2.8 g/dL Normal [facility] Comment on above: Performed By: #### U A #### [address] Protein [Mass/Vol] 6.8 g/dL Normal 6.1-7.9 [facility] Comment on above: Performed By: #### U A #### [address] Lipaseon 12-19-2021 Lipase [Catalytic activity/Vol] 99.0 U/L High 22-51 [facility] Comment on above: Result Comment: PERF ORMED BY: [place] [address] PATHOLOGIST [employer] AGENT PAULA RODRIGUES M.D. Performed By: #### U A #### [address] Urinalysison 12-19-2021 Appearance (U) Clear Normal Clear [facility] Comment on above: Order Comment: Name Collection Type:: Clean-Voided Midstream Performed By: #### U A #### [place] [address] [place] Bilirubin,Urine Negative Normal Negative [facility] Comment on above: Order Comment: Name Collection Type:: Clean-Voided Midstream Performed By: #### U A #### [place] [address] [place] Color (U) Yellow Normal Yellow [facility] Comment on above: Order Comment: Name Collection Type:: Clean-Voided Midstream Performed By: #### U A #### [place] [address] [place] Glucose Ql (U) Normal Normal Normal [facility] Comment on above: Order Comment: Name Collection Type:: Clean-Voided Midstream Performed By: #### U A #### [address] Ketones Ql (U) Trace High Negative [facility] Comment on above: Order Comment: Name Collection Type:: Clean-Voided Midstream Performed By: #### U A #### [place] [address] [place] Leukocyte esterase Test strip Ql (U) Negative Normal Negative [facility] Comment on above: Order Comment: Name Collection Type:: Clean-Voided Midstream Performed By: #### U A #### [place] [address] [place] Nitrite,Urine Negative Normal Negative [facility] Comment on above: Order Comment: Name Collection Type:: Clean-Voided Midstream Performed By: #### U A #### [address] [place] [address] [place] Occult Blood,Urine Negative Normal Negative [facility] Comment on above: Order Comment: Name Collection Type:: Clean-Voided Midstream Result Comment: PERF ORMED BY: [place] [address] PATHOLOGIST [employer] AGENT PAULA RODRIGUES M.D. Performed By: #### U A #### [address] pH (U) 5.0 [pH] Normal 5.0-9.[address] [facility] Comment on above: Order Comment: Name Collection Type:: Clean-Voided Midstream Performed By: #### U A #### [address] Protein,Urine Negative Normal Negative [facility] Comment on above: Order Comment: Name Collection Type:: Clean-Voided Midstream Performed By: #### U A #### [address] Specificy [place],Urine 1.024 Normal 1.001-1.[address] [facility] Comment on above: Order Comment: Name Collection Type:: Clean-Voided Midstream Performed By: #### U A #### [address] Urobilinogen,Urine Normal Normal Normal [facility] Comment on above: Order Comment: Name Collection Type:: Clean-Voided Midstream Performed By: #### U A #### [address] AMYLASEon 12-13-2021 Amylase [Catalytic activity/Vol] 268 U/L Critically high 25-115 [facility] Comment on above: Performed By: #### L IPA, CMP, CRP, NAT #### [facility] [address] [address] [address] Keturah Fisher CBC AUTO DIFFon 12-13-2021 BASO # 0.1 103/ul Normal 0.0-0.1 [facility] Comment on above: Performed By: #### L IPA, CMP, CRP, NAT #### [facility] [address] [place] [address] Dr. Keturah Fisher Basophils/100 WBC (Bld) 0.6 % Normal 0.2-2.0 [facility] Comment on above: Performed By: #### L IPA, CMP, CRP, NAT #### [facility] [address] [place] [address] Dr. Keturah Fisher EO # 0.1 103/ul Normal 0.0-0.7 [facility] Comment on above: Performed By: #### L IPA, CMP, CRP, NAT #### [facility] [address] [place] [address] Dr. Keturah Fisher Eosinophils/100 WBC (Bld) 1.2 % Normal 0.9-7.0 [facility] Comment on above: Performed By: #### L IPA, CMP, CRP, NAT #### [facility] [address] [place] [address] Dr. Keturha Fisher Erythrocyte distribution width (RBC) [Ratio] 13.2 % Normal 11.0-15.0 [facility] Comment on above: Performed By: #### L IPA, CMP, CRP, NAT #### [facility] [address] [place] [address] Dr. Keturah Fisher Hematocrit (Bld) [Volume fraction] 44.7 % Normal 36.0-48.0 [facility] Comment on above: Performed By: #### L IPA, CMP, CRP, NAT #### [facility] [address] [place] [address] Dr. Keturah Fisher Hemoglobin (Bld) [Mass/Vol] 14.7 g/dL Normal 12.0-16.0 [facility] Comment on above: Performed By: #### L IPA, CMP, CRP, NAT #### [facility] [address] [place] [address] Dr. Keturah Fisher IG # 0.03 10e3/ul Normal 0.00-0.03 [facility] Comment on above: Performed By: #### L IPA, CMP, CRP, NAT #### [facility] [address] [place] [address] Dr. Keturah Fisher IG % 0.3 % Normal 0.0-0.5 [facility] Comment on above: Performed By: #### L IPA, CMP, CRP, NAT #### [facility] [address] [place] [address] Dr. Keturah Fisher LYMPH # 3.6 103/ul Normal 1.2-3.8 [facility] Comment on above: Performed By: #### L IPA, CMP, CRP, NAT #### [facility] [address] [place] [address] Dr. Keturah Fisher Lymphocytes/100 WBC (Bld) 32.7 % Normal 20.5-60.0 [facility] Comment on above: Performed By: #### L IPA, CMP, CRP, NAT #### [facility] [address] [place] [address] Dr. Keturah Fisher MANUAL DIFF REQ NO Normal [facility] Comment on above: Performed By: #### L IPA, CMP, CRP, NAT #### [facility] [address] [place] [address] Dr. Keturah Fisher MCH (RBC) [Entitic mass] 32.2 pg Normal 26.7-34.0 [facility] Comment on above: Performed By: #### L IPA, CMP, CRP, NAT #### [facility] [address] [place] [address] Dr. Keturah Fisher MCHC (RBC) [Mass/Vol] 32.9 g/dL Normal 29.9-35.2 [facility] Comment on above: Performed By: #### L IPA, CMP, CRP, NAT #### [facility] [address] [place] [address] Dr. Keturah Fisher MCV (RBC) [Entitic vol] 98.0 fL Normal 81.0-99.0 [facility] Comment on above: Performed By: #### L IPA, CMP, CRP, NAT #### [facility] [address] [place] [address] Dr. Keturah Fisher MONO # 1.1 103/ul Critically high 0.3-0.8 [facility] Comment on above: Performed By: #### L IPA, CMP, CRP, NAT #### [facility] [address] [address] [address] Keturah Fisher Monocytes/100 WBC (Bld) 9.7 % Normal 1.7-12.0 [facility] Comment on above: Performed By: #### L IPA, CMP, CRP, ANT #### [facility] [address] [place] [address] Dr. Ketruah Fisher NEUT # 6.1 103/ul Normal 1.4-6.5 [facility] Comment on above: Performed By: #### L IPA, CMP, CRP, NAT #### [facility] [address] [place] [address] Dr. Keturah Fisher Neutrophils/100 WBC (Bld) 55.5 % Normal 43.0-75.0 [facility] Comment on above: Performed By: #### L IPA, CMP, CRP, NAT #### [facility] [address] [place] [address] Dr. Keturah Fisher Platelet mean volume (Bld) [Entitic vol] 9.7 fL Normal 9.5-13.5 [facility] Comment on above: Performed By: #### L IPA, CMP, CRP, NAT #### [facility] [address] [place] [address] Dr. Keturah Fisher PLT 274 103/ul Normal 150-450 [facility] Comment on above: Performed By: #### L IPA, CMP, CRP, NAT #### [facility] [address] [place] [address] Dr. Keturah Fisher RBC 4.56 106/ul Normal 4.20-5.40 [facility] Comment on above: Performed By: #### L IPA, CMP, CRP, NAT #### [facility] [address] [place] [address] Dr. Keturah Fisher WBC 10.9 103/ul Normal 4.0-11.0 [facility] Comment on above: Performed By: #### L IPA, CMP, CRP, NAT #### [facility] [address] [place] [address] Dr. Keturah Fisher CRPon 12-13-2021 CRP [Mass/Vol] mg/L Normal <=1.[address] [facility] Comment on above: Performed By: #### L IPA, CMP, CRP, NAT #### [facility] [address] [address] [address] ABD/PELV W CONon [...] by: AGUSTIN HIGHTOWER Date: 2021-12-13 20:50 Normal [facility] LIPASEon 12-13-2021 Lipase [Catalytic activity/Vol] 1496.0 U/L Critically high 73.0-393.0 [facility] Comment on above: Performed By: #### L IPA, CMP, CRP, NAT #### [facility] [address] [address] [address] Keturah Fisher PROF 14(COMP METB)on 022 Albumin [Mass/Vol] 4.0 g/dL Normal 3.4-5.0 [facility] Comment on above: Performed By: #### L IPA, CMP, CRP, NAT #### [facility] [address] [address] [address] Keturah Fisher Albumin/Globulin [Mass ratio] 1.0 {ratio} Normal [facility] Comment on above: Performed By: #### L IPA, CMP, CRP, NAT #### [facility] [address] [address] [address] Keturah Fisher ALP [Catalytic activity/Vol] 166 U/L Critically high 46-116 [facility] Comment on above: Performed By: #### L IPA, CMP, CRP, NAT #### [facility] [address] [address] [address] Keturah Fihser ALT [Catalytic activity/Vol] 19 U/L Normal 14-59 [facility] Comment on above: Performed By: #### L IPA, CMP, CRP, NAT #### [facility] [address] [address] [address] Keturah Fisher Anion gap [Moles/Vol] 9.5 mmol/L Normal [facility] Comment on above: Performed By: #### L IPA, CMP, CRP, NAT #### [facility] [address] [address] [address] Keturah Fisher AST [Catalytic activity/Vol] 16 U/L Normal 15-37 [facility] Comment on above: Performed By: #### L IPA, CMP, CRP, NAT #### [facility] [address] [address] [address] Keturah Fisher Bilirubin [Mass/Vol] 0.1 mg/dL Critically low 0.2-1.0 [facility] Comment on above: Performed By: #### L IPA, CMP, CRP, NAT #### [facility] [address] [address] [address] Keturah Fisher Calcium [Mass/Vol] 9.6 mg/dL Normal 8.5-10.1 [facility] Comment on above: Performed By: #### L IPA, CMP, CRP, NAT #### [facility] [address] [place] [address] Dr. Keturah Fisher Chloride [Moles/Vol] 104 mmol/L Normal 98-107 [facility] Comment on above: Performed By: #### L IPA, CMP, CRP, NAT #### [facility] [address] [place] [address] Dr. Keturah Fisher CO2 [Moles/Vol] 29.7 mmol/L Normal 21.0-32.0 [facility] Comment on above: Performed By: #### L IPA, CMP, CRP, NAT #### [facility] [address] [place] [address] Dr. Keturah Fisher Creatinine [Mass/Vol] 0.85 mg/dL Normal 0.55-1.02 [facility] Comment on above: Performed By: #### L IPA, CMP, CRP, NAT #### [facility] [address] [place] [address] Dr. Keturah Fisher EGFR-AF CITIZEN OF [place] >60 Normal >=60 [facility] Comment on above: Performed By: #### L IPA, CMP, CRP, NAT #### [facility] [address] [place] [address] Dr. Keturah Fisher EGFR-NON AF CITIZEN OF [place] >60 Normal >=60 [facility] Comment on above: Performed By: #### L IPA, CMP, CRP, NAT #### [facility] [address] [place] [address] Dr. Keturah Fisher Globulin (S) [Mass/Vol] 3.9 g/dL Normal [facility] Comment on above: Performed By: #### L IPA, CMP, CRP, NAT #### [facility] [address] [place] [address] Dr. Keturah Fisher Glucose [Mass/Vol] 70 mg/dL Critically low 74-106 [facility] Comment on above: Performed By: #### L IPA, CMP, CRP, NAT #### [facility] [address] [address] [address] Keturah Fisher Potassium [Moles/Vol] 3.2 mmol/L Critically low 3.5-5.1 [facility] Comment on above: Performed By: #### L IPA, CMP, CRP, NAT #### [facility] [address] [place] [address] Dr. Keturah Fisher Protein [Mass/Vol] 7.9 g/dL Normal 6.4-8.2 [facility] Comment on above: Performed By: #### L IPA, CMP, CRP, NAT #### [facility] [address] [place] [address] Dr. Keturah Fisher Sodium [Moles/Vol] 140 mmol/L Normal 136-145 [facility] Comment on above: Performed By: #### L IPA, CMP, CRP, NAT #### [facility] [address] [place] [address] Dr. Keturah Fisher Urea nitrogen [Mass/Vol] 8.0 mg/dL Normal 7.0-18.0 [facility] Comment on above: Performed By: #### L IPA, CMP, CRP, NAT #### [facility] [address] [place] [address] Dr. Keturah Fisher Urea nitrogen/Creatinine [Mass ratio] 9.4 mg/mg Normal [facility] Comment on above: Performed By: #### L IPA, CMP, CRP, NAT #### [facility] [address] [place] [address] Dr. Keturah Fisher AMYLASEon 12-05-2021 Amylase [Catalytic activity/Vol] 223 U/L Critically high 25-115 [facility] Comment on above: Performed By: #### L IPA, CMP, CRP, NAT #### [facility] [address] [place] [address] Dr. Keturah Fisher CBC AUTO DIFFon 12-05-2021 BASO # 0.1 103/ul Normal 0.0-0.1 [facility] Comment on above: Performed By: #### C BC #### [facility] [address] [place] [address] Dr. Keturah Fisher Basophils/100 WBC (Bld) 0.7 % Normal 0.2-2.0 [facility] Comment on above: Performed By: #### C BC #### [facility] [address] [place] [address] Dr. Keturah Fisher EO # 0.2 103/ul Normal 0.0-0.7 [facility] Comment on above: Performed By: #### C BC #### [facility] [address] [place] [address] Dr. Keturah Fisher Eosinophils/100 WBC (Bld) 1.7 % Normal 0.9-7.0 [facility] Comment on above: Performed By: #### C BC #### [facility] [address] [place] [address] Dr. Keturah Fisher Erythrocyte distribution width (RBC) [Ratio] 13.0 % Normal 11.0-15.0 [facility] Comment on above: Performed By: #### C BC #### [facility] [address] [place] [address] Dr. Keturah Fisher Hematocrit (Bld) [Volume fraction] 44.9 % Normal 36.0-48.0 [facility] Comment on above: Performed By: #### C BC #### [facility] [address] [place] [address] Dr. Keturah Fisher Hemoglobin (Bld) [Mass/Vol] 15.1 g/dL Normal 12.0-16.0 [facility] Comment on above: Performed By: #### C BC #### [facility] [address] [place] [address] Dr. Keturah Fisher IG # 0.02 10e3/ul Normal 0.00-0.03 [facility] Comment on above: Performed By: #### C BC #### [facility] [address] [place] [address] Dr. Keturah Fisher IG % 0.2 % Normal 0.0-0.5 [facility] Comment on above: Performed By: #### C BC #### [facility] [address] [place] [address] Dr. Keturah Fisher LYMPH # 2.8 103/ul Normal 1.2-3.8 [facility] Comment on above: Performed By: #### C BC #### [facility] [address] [place] [address] Dr. Keturah Fisher Lymphocytes/100 WBC (Bld) 29.8 % Normal 20.5-60.0 [facility] Comment on above: Performed By: #### C BC #### [facility] [address] [place] [address] Dr. Keturah Fisher MANUAL DIFF REQ NO Normal [facility] Comment on above: Performed By: #### C BC #### [facility] [address] [place] [address] Dr. Keturah Fisher MCH (RBC) [Entitic mass] 32.4 pg Normal 26.7-34.0 [facility] Comment on above: Performed By: #### C BC #### [facility] [address] [place] [address] Dr. Keturah Fisher MCHC (RBC) [Mass/Vol] 33.6 g/dL Normal 29.9-35.2 [facility] Comment on above: Performed By: #### C BC #### [facility] [address] [place] [address] Dr. Keturah Fisher MCV (RBC) [Entitic vol] 96.4 fL Normal 81.0-99.0 [facility] Comment on above: Performed By: #### C BC #### [facility] [address] [place] [address] Dr. Keturah Fisher MONO # 0.6 103/ul Normal 0.3-0.8 [facility] Comment on above: Performed By: #### C BC #### [facility] [address] [place] [address] Dr. Keturah Fisher Monocytes/100 WBC (Bld) 6.3 % Normal 1.7-12.0 [facility] Comment on above: Performed By: #### C BC #### [facility] [address] [place] [address] Dr. Keturah Fisher NEUT # 5.7 103/ul Normal 1.4-6.5 [facility] Comment on above: Performed By: #### C BC #### [facility] [address] [place] [address] Dr. Keturah Fisher Neutrophils/100 WBC (Bld) 61.3 % Normal 43.0-75.0 [facility] Comment on above: Performed By: #### C BC #### [facility] [address] [place] [address] Dr. Keturah Fisher Platelet mean volume (Bld) [Entitic vol] 10.7 fL Normal 9.5-13.5 [facility] Comment on above: Performed By: #### C BC #### [facility] [address] [place] [address] Dr. Keturah Fisher PLT 217 103/ul Normal 150-450 [facility] Comment on above: Performed By: #### C BC #### [facility] [address] [place] [address] Dr. Keturah Fisher RBC 4.66 106/ul Normal 4.20-5.40 [facility] Comment on above: Performed By: #### C BC #### [facility] [address] [place] [address] Dr. Keturah Fisher WBC 9.2 103/ul Normal 4.0-11.0 [facility] Comment on above: Performed By: #### C BC #### [facility] [address] [place] [address] Dr. Keturah Fisher LIPASEon 12-05-2021 Lipase [Catalytic activity/Vol] 725.0 U/L Critically high 73.0-393.0 [facility] Comment on above: Performed By: #### L IPA, CMP, CRP, NAT #### [facility] [address] [place] [address] Dr. Keturah Fisher PROF 14(COMP METB)on 022 Albumin [Mass/Vol] 4.2 g/dL Normal 3.4-5.0 [facility] Comment on above: Performed By: #### L IPA, CMP, CRP, NAT #### [facility] [address] [place] [address] Dr. Keturah Fisher Albumin/Globulin [Mass ratio] 1.2 {ratio} Normal [facility] Comment on above: Performed By: #### L IPA, CMP, CRP, NAT #### [facility] [address] [place] [address] Dr. Keturah Fisher ALP [Catalytic activity/Vol] 158 U/L Critically high 46-116 [facility] Comment on above: Performed By: #### L IPA, CMP, CRP, NAT #### [facility] [address] [place] [address] Dr. Keturah Fisher ALT [Catalytic activity/Vol] 20 U/L Normal 14-59 [facility] Comment on above: Performed By: #### L IPA, CMP, CRP, NAT #### [facility] [address] [place] [address] Dr. Keturah Fisher Anion gap [Moles/Vol] 14.0 mmol/L Normal [facility] Comment on above: Performed By: #### L IPA, CMP, CRP, NAT #### [facility] [address] [place] [address] Dr. Keturah Fisher AST [Catalytic activity/Vol] 27 U/L Normal 15-37 [facility] Comment on above: Performed By: #### L IPA, CMP, CRP, NAT #### [facility] [address] [place] [address] Dr. Keturah Fisher Bilirubin [Mass/Vol] 0.3 mg/dL Normal 0.2-1.0 [facility] Comment on above: Performed By: #### L IPA, CMP, CRP, NAT #### [facility] [address] [place] [address] Dr. Keturah Fisher Calcium [Mass/Vol] 10.1 mg/dL Normal 8.5-10.1 [facility] Comment on above: Performed By: #### L IPA, CMP, CRP, NAT #### [facility] [address] [address] [address] Keturah Fisher Chloride [Moles/Vol] 105 mmol/L Normal 98-107 [facility] Comment on above: Performed By: #### L IPA, CMP, CRP, NAT #### [facility] [address] [address] [address] Keturah Fisher CO2 [Moles/Vol] 24.9 mmol/L Normal 21.0-32.0 [facility] Comment on above: Performed By: #### L IPA, CMP, CRP, NAT #### [facility] [address] [address] [address] Keturah Fisher Creatinine [Mass/Vol] 0.77 mg/dL Normal 0.55-1.02 [facility] Comment on above: Performed By: #### L IPA, CMP, CRP, NAT #### [facility] [address] [place] [address] Dr. Keturah Fisher EGFR-AF CITIZEN [place] >60 Normal >=60 [facility] Comment on above: Performed By: #### L IPA, CMP, CRP, NAT #### [facility] [address] [place] [address] Dr. Keturah Fisher EGFR-NON AF CITIZEN OF [place] >60 Normal >=60 [facility] Comment on above: Performed By: #### L IPA, CMP, CRP, NAT #### [facility] [address] [place] [address] Dr. Keturah Fisher Globulin (S) [Mass/Vol] 3.5 g/dL Normal [facility] Comment on above: Performed By: #### L IPA, CMP, CRP, NAT #### [facility] [address] [address] [address] Keturah Fisher Glucose [Mass/Vol] 91 mg/dL Normal 74-106 [facility] Comment on above: Performed By: #### L IPA, CMP, CRP, NAT #### [facility] [address] [address] [address] Keturah Fisher Potassium [Moles/Vol] 3.9 mmol/L Normal 3.5-5.1 [facility] Comment on above: Performed By: #### L IPA, CMP, CRP, NAT #### [facility] [address] [place] [address] Dr. Keturah Fisher Protein [Mass/Vol] 7.7 g/dL Normal 6.4-8.2 [facility] Comment on above: Performed By: #### L IPA, CMP, CRP, NAT #### [facility] [address] [place] [address] Dr. Keturah Fisher Sodium [Moles/Vol] 140 mmol/L Normal 136-145 [facility] Comment on above: Performed By: #### L IPA, CMP, CRP, NAT #### [facility] [address] [place] [address] Dr. Keturah Fisher Urea nitrogen [Mass/Vol] 8.0 mg/dL Normal 7.0-18.0 [facility] Comment on above: Performed By: #### L IPA, CMP, CRP, NAT #### [facility] [address] [place] [address] Dr. Keturah Fisher Urea nitrogen/Creatinine [Mass ratio] 10.4 mg/mg Normal [facility] Comment on above: Performed By: #### L IPA, CMP, CRP, NAT #### [facility] [address] [place] [address] Dr. Keturah Fisher AMYLASEon 10-11-2021 Amylase [Catalytic activity/Vol] 134 U/L Critically high 25-115 [facility] Comment on above: Performed By: #### C BC #### [facility] [address] [place] [address] Dr. Keturah Fisher CBC AUTO DIFFon 10-11-2021 BASO # 0.1 103/ul Normal 0.0-0.1 [facility] Comment on above: Performed By: #### L IPA, CMP, CRP, NAT #### [facility] [address] [place] [address] Dr. Keturah Fisher Basophils/100 WBC (Bld) 1.0 % Normal 0.2-2.0 [facility] Comment on above: Performed By: #### L IPA, CMP, CRP, NAT #### [facility] [address] [place] [address] Dr. Keturah Fisher EO # 0.2 103/ul Normal 0.0-0.7 [facility] Comment on above: Performed By: #### L IPA, CMP, CRP, NAT #### [facility] [address] [place] [address] Dr. Keturah Fisher Eosinophils/100 WBC (Bld) 2.0 % Normal 0.9-7.0 [facility] Comment on above: Performed By: #### L IPA, CMP, CRP, NAT #### [facility] [address] [place] [address] Dr. Keturah Fisher Erythrocyte distribution width (RBC) [Ratio] 13.2 % Normal 11.0-15.0 [facility] Comment on above: Performed By: #### L IPA, CMP, CRP, NAT #### [facility] [address] [place] [address] Dr. Keturah Fisher Hematocrit (Bld) [Volume fraction] 44.7 % Normal 36.0-48.0 [facility] Comment on above: Performed By: #### L IPA, CMP, CRP, NAT #### [facility] [address] [place] [address] Dr. Keturah Fisher Hemoglobin (Bld) [Mass/Vol] 15.0 g/dL Normal 12.0-16.0 [facility] Comment on above: Performed By: #### L IPA, CMP, CRP, NAT #### [facility] [address] [place] [address] Dr. Keturah Fisher IG # 0.02 10e3/ul Normal 0.00-0.03 [facility] Comment on above: Performed By: #### L IPA, CMP, CRP, NAT #### [facility] [address] [place] [address] Dr. Keturah Fisher IG % 0.2 % Normal 0.0-0.5 [facility] Comment on above: Performed By: #### L IPA, CMP, CRP, NAT #### [facility] [address] [place] [address] Dr. Keturah Fisher LYMPH # 4.1 103/ul Critically high 1.2-3.8 [facility] Comment on above: Performed By: #### L IPA, CMP, CRP, NAT #### [facility] [address] [address] [address] Keturah Fisher Lymphocytes/100 WBC (Bld) 38.9 % Normal 20.5-60.0 [facility] Comment on above: Performed By: #### L IPA, CMP, CRP, NAT #### [facility] [address] [address] [address] Keturah Fisher MANUAL DIFF REQ NO Normal [facility] Comment on above: Performed By: #### L IPA, CMP, CRP, NAT #### [facility] [address] [place] [address] Dr. Keturah Fisher MCH (RBC) [Entitic mass] 32.1 pg Normal 26.7-34.0 [facility] Comment on above: Performed By: #### L IPA, CMP, CRP, NAT #### [facility] [address] [place] [address] Dr. Keturah Fisher MCHC (RBC) [Mass/Vol] 33.6 g/dL Normal 29.9-35.2 [facility] Comment on above: Performed By: #### L IPA, CMP, CRP, NAT #### [facility] [address] [place] [address] Dr. Keturah Fisher MCV (RBC) [Entitic vol] 95.7 fL Normal 81.0-99.0 [facility] Comment on above: Performed By: #### L IPA, CMP, CRP, NAT #### [facility] [address] [place] [address] Dr. Keturah Fisher MONO # 0.9 103/ul Critically high 0.3-0.8 [facility] Comment on above: Performed By: #### L IPA, CMP, CRP, NAT #### [facility] [address] [place] [address] Dr. Keturah Fisher Monocytes/100 WBC (Bld) 8.8 % Normal 1.7-12.0 [facility] Comment on above: Performed By: #### L IPA, CMP, CRP, NAT #### [facility] [address] [place] [address] Dr. Keturah Fisher NEUT # 5.2 103/ul Normal 1.4-6.5 [facility] Comment on above: Performed By: #### L IPA, CMP, CRP, NAT #### [facility] [address] [place] [address] Dr. Keturah Fisher Neutrophils/100 WBC (Bld) 49.1 % Normal 43.0-75.0 [facility] Comment on above: Performed By: #### L IPA, CMP, CRP, NAT #### [facility] [address] [place] [address] Dr. Keturah Fisher Platelet mean volume (Bld) [Entitic vol] 9.8 fL Normal 9.5-13.5 [facility] Comment on above: Performed By: #### L IPA, CMP, CRP, NAT #### [facility] [address] [place] [address] Dr. Keturah Fisher PLT 299 103/ul Normal 150-450 [facility] Comment on above: Performed By: #### L IPA, CMP, CRP, NAT #### [facility] [address] [place] [address] Dr. Keturah Fisher RBC 4.67 106/ul Normal 4.20-5.40 [facility] Comment on above: Performed By: #### L IPA, CMP, CRP, NAT #### [facility] [address] [place] [address] Dr. Keturah Fisher WBC 10.5 103/ul Normal 4.0-11.0 [facility] Comment on above: Performed By: #### L IPA, CMP, CRP, NAT #### [facility] [address] [place] [address] Dr. Keturah Fisher LIPASEon 10-11-2021 Lipase [Catalytic activity/Vol] 240.0 U/L Normal 73.0-393.0 [facility] Comment on above: Performed By: #### C BC #### [facility] [address] [place] [address] Dr. Keturah Fisher PROF 14(COMP METB)on 022 Albumin [Mass/Vol] 4.3 g/dL Normal 3.4-5.0 [facility] Comment on above: Performed By: #### C BC #### [facility] [address] [place] [address] Dr. Keturah Fisher Albumin/Globulin [Mass ratio] 1.3 {ratio} Normal [facility] Comment on above: Performed By: #### C BC #### [facility] [address] [place] [address] Dr. Keturah Fisher ALP [Catalytic activity/Vol] 162 U/L Critically high 46-116 [facility] Comment on above: Performed By: #### C BC #### [facility] [address] [place] [address] Dr. Keturah Fisher ALT [Catalytic activity/Vol] 21 U/L Normal 14-59 [facility] Comment on above: Performed By: #### C BC #### [facility] [address] [place] [address] Dr. Keturah Fisher Anion gap [Moles/Vol] 15.1 mmol/L Normal [facility] Comment on above: Performed By: #### C BC #### [facility] [address] [place] [address] Dr. Keturah Fisher AST [Catalytic activity/Vol] 16 U/L Normal 15-37 [facility] Comment on above: Performed By: #### C BC #### [facility] [address] [place] [address] Dr. Keturah Fisher Bilirubin [Mass/Vol] 0.2 mg/dL Normal 0.2-1.0 [facility] Comment on above: Performed By: #### C BC #### [facility] [address] [place] [address] Dr. Keturah Fisher Calcium [Mass/Vol] 9.6 mg/dL Normal 8.5-10.1 [facility] Comment on above: Performed By: #### C BC #### [facility] [address] [place] [address] Dr. Keturah Fisher Chloride [Moles/Vol] 104 mmol/L Normal 98-107 [facility] Comment on above: Performed By: #### C BC #### [facility] [address] [address] [address] Keturah Fisher CO2 [Moles/Vol] 24.6 mmol/L Normal 21.0-32.0 [facility] Comment on above: Performed By: #### C BC #### [facility] [address] [address] [address] Keturah Fisher Creatinine [Mass/Vol] 0.88 mg/dL Normal 0.55-1.02 [facility] Comment on above: Performed By: #### C BC #### [facility] [address] [place] [address] Dr. Keturah Fisher EGFR-AF CITIZEN [place] >60 Normal >=60 [facility] Comment on above: Performed By: #### C BC #### [facility] [address] [place] [address] Dr. Keturah Fisher EGFR-NON AF CITIZEN OF [place] >60 Normal >=60 [facility] Comment on above: Performed By: #### C BC #### [facility] [address] [address] [address] Keturah Fisher Globulin (S) [Mass/Vol] 3.3 g/dL Normal [facility] Comment on above: Performed By: #### C BC #### [facility] [address] [address] [address] Keturah Fisher Glucose [Mass/Vol] 111 mg/dL Critically high 74-106 [facility] Comment on above: Performed By: #### C BC #### [facility] [address] [place] [address] Dr. Keturah Fisher Potassium [Moles/Vol] 3.7 mmol/L Normal 3.5-5.1 [facility] Comment on above: Performed By: #### C BC #### [facility] [address] [address] [address] Keturah Fisher Protein [Mass/Vol] 7.6 g/dL Normal 6.4-8.2 [facility] Comment on above: Performed By: #### C BC #### [facility] [address] [address] [address] Keturah Fisher Sodium [Moles/Vol] 140 mmol/L Normal 136-145 [facility] Comment on above: Performed By: #### C BC #### [facility] [address] [address] [address] Keturah Fisher Urea nitrogen [Mass/Vol] 11.0 mg/dL Normal 7.0-18.0 [facility] Comment on above: Performed By: #### C BC #### [facility] [address] [address] [address] Keturah Fisher Urea nitrogen/Creatinine [Mass ratio] 12.5 mg/mg Normal [facility] Comment on above: Performed By: #### C BC #### [facility] [address] [address] [address] Keturah Fisher PROTIMEon 10-11-2021 INR Coag (PPP) [Relative time] 0.94 {INR} Normal [facility] Comment on above: Performed By: #### P T, PTT ####[facility] [id number] [address]Dr. Keturah Fisher INR GUIDELINES SEE BELOW Normal [facility] Comment on above: Result Comment: KARLY RED INR: 2.0 - 3.0 CONDITIONS NOT LISTED BELOW 2.5 - 3.5 FOR PROSTHETIC HEART VALVE REPLACEMENT 2.5 - 3.5 RECURRENT THROMBOSIS Performed By: #### P T, PTT ####[facility] [id number] [address]DrGopal Fisher PT Coag (PPP) [Time] 10.2 s Normal 9.0-11.6 [facility] Comment on above: Performed By: #### P T, PTT ####[facility] [id number] [address]Dr. Keturah Fisher PTTon 10-11-2021 aPTT Coag (Bld) [Time] 28.0 s Normal 22.3-36.2 [facility] Comment on above: Performed By: #### P T, PTT ####[facility] [id number] [place], [place] [address]Xv. Keturah Fisher Amphetamine Screen Ql (U)Ord ered By: Christa Lopez on 10-09-2021 Amphetamines Ql (U) Negative Negative [facility] Barbiturates [Presence] in U rineOrdered By: Christa Lopez on 10-09-2021 Barbiturates Ql (U) Negative Negative [facility] Basophils Auto (Bld) [#/Vol] Ordered By: Christa Lopez on 10-09-2021 Basophils (Bld) [#/Vol] 0.1 10*3/uL 0.0-0.[address] [facility] Basophils/100 WBC Auto (Bld) Ordered By: Christa Lopez on 10-09-2021 Basophils/100 WBC (Bld) 0.9 % . [facility] Benzodiazepines [Presence] i n UrineOrdered By: Christa Lopez on 10-09-2021 Benzodiazepines Ql (U) Negative Negative [facility] Bilirubin Auto test strip Ql (U)Ordered By: Christa Lopez on 10-09-2021 Bilirubin Ql (U) Negative Negative [facility] Blood hemoglobin measurement (mass/volume)Ordered By: Christa Lopez on 10-09-2021 Hemoglobin (Bld) [Mass/Vol] 15.7 g/dL 11.8-15.[address] [facility] Blood leukocytes automated c ount (number/volume)Ordered By: Christa Lopez on 10-09-2021 WBC (Bld) [#/Vol] 10.1 10*3/uL 4.5-11.0 [facility] Body fluid albumin measureme nt (mass/volume)Ordered By: Christa Lopez on 10-09-2021 Albumin (Body fld) [Mass/Vol] 4.5 g/dL 3.2-5.[address] [facility] Cannabinoids [Presence] in U rine by Screen methodOrdered By: Christa Lopez on 10-09-2021 Cannabinoids Screen Ql (U) Negative Negative [facility] Comment on above: These are unconfirme d results and should not be used for legal purposes. Drug Cut-Off Concentration: AMPH 1000 ng/mL BAILEY 200 ng/mL JAKE 200 ng/mL COCM 300 ng/mL OP 300 ng/mL PCP 25 ng/mL THC 20 ng/mL Creatinine and Glomerular fi ltration rate.predicted panel (S/P/Bld)Ordered By: Christa Lopez on 10-09-2021 Creatinine [Mass/Vol] 0.85 mg/dL 0.44-1.03 [facility] Eosinophils Auto (Bld) [#/Vo l]Ordered By: Christa Lopez on 10-09-2021 Eosinophils (Bld) [#/Vol] 0.1 10*3/uL 0.0-0.[address] [facility] Eosinophils/100 WBC Auto (Bl d)Ordered By: Christa Lopez on 10-09-2021 Eosinophils/100 WBC (Bld) 1.2 % . [facility] Erythrocyte distribution wid th Auto (RBC) [Ratio]Ordered By: Christa Lopez on 10-09-2021 Erythrocyte distribution width (RBC) [Ratio] 13.5 % 11.9-15.[address] [facility] Estimated glomerular filtrat ion rate (GFR) non- AmericanOrdered By: Christa Lopez on 10-09-2021 GFR/1.73 sq M.predicted among non-blacks MDRD (S/P/Bld) [Vol rate/Area] > 60 mL/Min [facility] Globulin Calc (S) [Mass/Vol] Ordered By: Christa Lopez on 10-09-2021 Globulin (S) [Mass/Vol] 2.9 g/dL [facility] Hematocrit Auto (Bld) [Volum e fraction]Ordered By: Christa Lopez on 10-09-2021 Hematocrit (Bld) [Volume fraction] 47.1 % 34.0-46.[address] [facility] Ketones Auto test strip (U) [Mass/Vol]Ordered By: Christa Lopez on 10-09-2021 Ketones (U) [Mass/Vol] Negative [facility] - [facility] and C hemistry - challengeOrdered By: Christa Lopez on 10-09-2021 Lipase [Catalytic activity/Vol] 242.0 U/L 22-[address] [facility] Laboratory - Drug toxicology Ordered By: Christa Lopez on 10-09-2021 Opiates Ql (U) Negative Negative [facility] Laboratory - Hematology and Cell countsOrdered By: Christa Lopez on 10-09-2021 Nucleated RBC/100 WBC (Bld) [Ratio] 0.1 % 0-0.[address] [facility] Lymphocytes Auto (Bld) [#/Vo l]Ordered By: Christa Lopez on 10-09-2021 Lymphocytes (Bld) [#/Vol] 2.6 10*3/uL 1.00-4.[address] [facility] Lymphocytes/100 WBC Auto (Bl d)Ordered By: Christa Lopez on 10-09-2021 Lymphocytes/100 WBC (Bld) 26.0 % . [facility] MCH Auto (RBC) [Entitic mass ]Ordered By: Christa Lopez on 10-09-2021 MCH (RBC) [Entitic mass] 32.4 pg 24.7-34.[address] [facility] MCHC Auto (RBC) [Mass/Vol]Or dered By: Christa Lopez on 10-09-2021 MCHC (RBC) [Mass/Vol] 33.3 g/dL 32.0-35.0 [facility] MCV Auto (RBC) [Entitic vol] Ordered By: Christa Lopez on 10-09-2021 MCV (RBC) [Entitic vol] 97.3 fL 80-[address] [facility] Monocytes Auto (Bld) [#/Vol] Ordered By: Christa Lopez on 10-09-2021 Monocytes (Bld) [#/Vol] 0.8 10*3/uL 0.0-0.[address] [facility] Monocytes/100 WBC Auto (Bld) Ordered By: Christa Lopez on 10-09-2021 Monocytes/100 WBC (Bld) 7.6 % . [facility] Neutrophils Auto (Bld) [#/Vo l]Ordered By: Christa Lopez on 10-09-2021 Neutrophils (Bld) [#/Vol] 6.5 10*3/uL 1.8-7.[address] [facility] Neutrophils/100 WBC Auto (Bl d)Ordered By: Christa Lopez on 10-09-2021 Neutrophils/100 WBC (Bld) 64.3 % . [facility] No Panel InformationOrdered By: Christa Lopez on 10-09-2021 Estimated GFR () > 60 mL/Min [facility] Comment on above: GFR estimated refere nce range: According to KDOQI guidelines, <60 ml/min/1.73m2 is sufficient to diagnose a patient with chronic kidney disease. Pharmacy Creatinine Clearance (Chem 61.[address] [facility] Phencyclidine Screen Ql (U)O rdered By: Christa Lopez on 10-09-2021 Phencyclidine Ql (U) Negative Negative [facility] Platelet mean volume Auto (B ld) [Entitic vol]Ordered By: Christa Lopez on 10-09-2021 Platelet mean volume (Bld) [Entitic vol] 8.5 fL 6.3-10.[address] [facility] Platelets Auto (Bld) [#/Vol] Ordered By: Christa Lopez on 10-09-2021 Platelets (Bld) [#/Vol] 284 10*3/uL 150-[address] [facility] Protein Auto test strip (U) [Mass/Vol]Ordered By: Christa Lopez on 10-09-2021 Protein (U) [Mass/Vol] Negative Negative [facility] Protein [Mass/volume] in Ser um or PlasmaOrdered By: Christa Lopez on 10-09-2021 Protein [Mass/Vol] 7.4 g/dL 6.1-7.9 [facility] RBC Auto (Bld) [#/Vol]Ordere d By: Christa Lopez on 10-09-2021 RBC (Bld) [#/Vol] 4.84 10*6/uL 3.60-5.00 [facility] Serum or plasma alanine hughes otransferase measurement without P-5'-P (enzymatic activiOrdered By: Christa Lopez on 10-09-2021 ALT No additional P-5'-P [Catalytic activity/Vol] 19 U/L 10-[address] [facility] Serum or plasma albumin/glob ulin mass ratioOrdered By: Christa Lopez on 10-09-2021 Albumin/Globulin [Mass ratio] 1.6 {ratio} [facility] Serum or plasma alkaline jaqueline sphatase measurement (enzymatic activity/volume)Ordered By: Christa Lopez on 10-09-2021 ALP [Catalytic activity/Vol] 138 U/L 32-[address] [facility] Serum or plasma aspartate am inotransferase measurement (enzymatic activity/volume)Ordered By: Christa Lopez on 10-09-2021 AST [Catalytic activity/Vol] 31 U/L 10-[address] [facility] Serum or plasma calcium priscilla urement (mass/volume)Ordered By: Christa Lopez on 10-09-2021 Calcium [Mass/Vol] 10.3 mg/dL 8.2-10.2 [facility] Serum or plasma chloride daron surement (moles/volume)Ordered By: Christa Lopez on 10-09-2021 Chloride [Moles/Vol] 100 mmol/L 95-114 [facility] Serum or plasma glucose priscilla urement (mass/volume)Ordered By: Christa Lopez on 10-09-2021 Glucose [Mass/Vol] 75 mg/dL 70-100 [facility] Comment on above: ADA recommended refe rence range Random Glucose Reference Range is dependent on time and content of last meal. Glucose of more than 200 mg/dL in a nonstressed, ambulatory subject supports the diagnosis of Diabetes Mellitus. Serum or plasma potassium me asurement (moles/volume)Ordered By: Christa Lopez on 10-09-2021 Potassium [Moles/Vol] 3.9 mmol/L 3.5-5.1 [facility] Serum or plasma sodium measu rement (moles/volume)Ordered By: Christa Lopez on 10-09-2021 Sodium [Moles/Vol] 136 mmol/L 136-146 [facility] Serum or plasma total biliru bin measurement (mass/volume)Ordered By: Christa Lopez on 10-09-2021 Bilirubin [Mass/Vol] 0.4 mg/dL 0.3-1.2 [facility] Serum or plasma total carbon dioxide measurement (moles/volume)Ordered By: Christa Lopez on 10-09-2021 CO2 [Moles/Vol] 24.1 mmol/L 22.0-30.0 [facility] Serum or plasma urea nitroge n measurement (mass/volume)Ordered By: Christa Lopez on 10-09-2021 Urea nitrogen [Mass/Vol] 12 mg/dL 9- [facility] Troponin I.cardiac [Mass/vol ume] in Serum or Plasma by High sensitivity methodOrdered By: Christa Lopez on 10-09-2021 Troponin I.cardiac High sensitivity method [Mass/Vol] 3 pg/mL 0-[address] [facility] Urine appearanceOrdered By: Christa Lopez on 10-09-2021 Appearance (U) Clear Clear [facility] Urine cocaine detectionOrder ed By: Christa Lopez on 10-09-2021 Cocaine Ql (U) Negative Negative [facility] Urine colorOrdered By: Christa Lopez on 10-09-2021 Color (U) Yellow Yellow [facility] Urine glucose measurement by automated test strip (mass/volume)Ordered By: Christa Lopez on 10-09-2021 Glucose Auto test strip (U) [Mass/Vol] Normal mg/dL Normal [facility] Urine hemoglobin detection b y automated test stripOrdered By: Christa Lopez on 10-09-2021 Hemoglobin Auto test strip Ql (U) Negative Negative [facility] Urine leukocyte esterase det ection by automated test stripOrdered By: Christa Lopez on 10-09-2021 Leukocyte esterase Auto test strip Ql (U) Negative Negative [facility] Urine nitrite detection by a utomated test stripOrdered By: Christa Lopez on 10-09-2021 Nitrite Auto test strip Ql (U) Negative Negative [facility] Urobilinogen Auto test strip (U) [Mass/Vol]Ordered By: Christa Lopez on 10-09-2021 Urobilinogen (U) [Mass/Vol] Normal mg/dL Normal [facility] pH Auto test strip (U)Ordere d By: Christa Lopez on 10-09-2021 pH (U) 1.025 [pH] 1.001-1.[address] [facility] pH (U) 5.5 [pH] 5.0-9.[address] [facility] Albumin [Mass/volume] in Ser um or PlasmaOrdered By: Reinaldo Amor on 10-04-2021 Albumin [Mass/Vol] 3.6 g/dL 3.2-5.5 [facility] Basophils Auto (Bld) [#/Vol] Ordered By: Reinaldo Amor on 10-04-2021 Basophils (Bld) [#/Vol] 0.1 10*3/uL 0.0-0.[address] [facility] Basophils/100 WBC Auto (Bld) Ordered By: Reinaldo Amor on 10-04-2021 Basophils/100 WBC (Bld) 0.8 % . [facility] Bilirubin Auto test strip Ql (U)Ordered By: Reinaldo Amor on 10-04-2021 Bilirubin Ql (U) Negative Negative [facility] Blood hemoglobin measurement (mass/volume)Ordered By: Reinaldo Amor on 10-04-2021 Hemoglobin (Bld) [Mass/Vol] 13.9 g/dL 11.8-15.[address] [facility] Blood leukocytes automated c ount (number/volume)Ordered By: Reinaldo Amor on 10-04-2021 WBC (Bld) [#/Vol] 10.4 10*3/uL 4.5-11.0 [facility] Creatinine and Glomerular fi ltration rate.predicted panel (S/P/Bld)Ordered By: Reinaldo Amor on 10-04-2021 Creatinine [Mass/Vol] 0.73 mg/dL 0.44-1.03 [facility] Direct bilirubin measurement Ordered By: Reinaldo Amor on 10-04-2021 Bilirubin.direct [Mass/Vol] mg/dL 0.0-0.[address] [facility] Eosinophils Auto (Bld) [#/Vo l]Ordered By: Reinaldo Amor on 10-04-2021 Eosinophils (Bld) [#/Vol] 0.1 10*3/uL 0.0-0.[address] [facility] Eosinophils/100 WBC Auto (Bl d)Ordered By: Reinaldo Amor on 10-04-2021 Eosinophils/100 WBC (Bld) 0.5 % . [facility] Erythrocyte distribution wid th Auto (RBC) [Ratio]Ordered By: Reinaldo Amor on 10-04-2021 Erythrocyte distribution width (RBC) [Ratio] 13.7 % 11.9-15.[address] [facility] Estimated glomerular filtrat ion rate (GFR) non- AmericanOrdered By: Reinaldo Amor on 10-04-2021 GFR/1.73 sq M.predicted among non-blacks MDRD (S/P/Bld) [Vol rate/Area] > 60 mL/Min [facility] Globulin Calc (S) [Mass/Vol] Ordered By: Reinaldo Amor on 10-04-2021 Globulin (S) [Mass/Vol] 2.6 g/dL [facility] Hematocrit Auto (Bld) [Volum e fraction]Ordered By: Reinaldo Amor on 10-04-2021 Hematocrit (Bld) [Volume fraction] 41.1 % 34.0-46.[address] [facility] Ketones Auto test strip (U) [Mass/Vol]Ordered By: Reinaldo Amor on 10-04-2021 Ketones (U) [Mass/Vol] Negative Negative [facility] Laboratory - Chemistry and C hemistry - challengeOrdered By: Reinaldo Amor on 10-04-2021 Lipase [Catalytic activity/Vol] 107.0 U/L 22-[address] [facility] Laboratory - Hematology and Cell countsOrdered By: Reinaldo Amor on 10-04-2021 Nucleated RBC/100 WBC (Bld) [Ratio] 0.1 % 0-0.[address] [facility] Lymphocytes Auto (Bld) [#/Vo l]Ordered By: Reinaldo Amor on 10-04-2021 Lymphocytes (Bld) [#/Vol] 2.5 10*3/uL 1.00-4.[address] [facility] Lymphocytes/100 WBC Auto (Bl d)Ordered By: Reinaldo Amor on 10-04-2021 Lymphocytes/100 WBC (Bld) 24.1 % . [facility] MCH Auto (RBC) [Entitic mass ]Ordered By: Reinaldo Amor on 10-04-2021 MCH (RBC) [Entitic mass] 32.6 pg 24.7-34.[address] [facility] MCHC Auto (RBC) [Mass/Vol]Or dered By: Reinaldo Amor on 10-04-2021 MCHC (RBC) [Mass/Vol] 33.8 g/dL 32.0-35.0 [facility] MCV Auto (RBC) [Entitic vol] Ordered By: Reinaldo Amor on 10-04-2021 MCV (RBC) [Entitic vol] 96.5 fL 80-[address] [facility] Monocytes Auto (Bld) [#/Vol] Ordered By: Reinaldo Amor on 10-04-2021 Monocytes (Bld) [#/Vol] 0.9 10*3/uL 0.0-0.[address] [facility] Monocytes/100 WBC Auto (Bld) Ordered By: Reinaldo Amor on 10-04-2021 Monocytes/100 WBC (Bld) 8.4 % . [facility] Neutrophils Auto (Bld) [#/Vo l]Ordered By: Reinaldo Amor on 10-04-2021 Neutrophils (Bld) [#/Vol] 6.9 10*3/uL 1.8-7.[address] [facility] Neutrophils/100 WBC Auto (Bl d)Ordered By: Reinaldo Amor on 10-04-2021 Neutrophils/100 WBC (Bld) 66.2 % . [facility] No Panel InformationOrdered By: Reinaldo Aomr on 10-04-2021 Estimated GFR () > 60 mL/Min [facility] Comment on above: GFR estimated refere nce range: According to KDOQI guidelines, <60 ml/min/1.73m2 is sufficient to diagnose a patient with chronic kidney disease. Pharmacy Creatinine Clearance (Chem 71.[address] [facility] Platelet mean volume Auto (B ld) [Entitic vol]Ordered By: Reinaldo Amor on 10-04-2021 Platelet mean volume (Bld) [Entitic vol] 8.0 fL 6.3-10.[address] [facility] Platelets Auto (Bld) [#/Vol] Ordered By: Reinaldo Amor on 10-04-2021 Platelets (Bld) [#/Vol] 268 10*3/uL 150-[address] [facility] Protein Auto test strip (U) [Mass/Vol]Ordered By: Reinaldo Amor on 10-04-2021 Protein (U) [Mass/Vol] Negative Negative [facility] Protein [Mass/volume] in Ser um or PlasmaOrdered By: Reinaldo Amor on 10-04-2021 Protein [Mass/Vol] 6.2 g/dL 6.1-7.9 [facility] RBC Auto (Bld) [#/Vol]Ordere d By: Reinaldo Amor on 10-04-2021 RBC (Bld) [#/Vol] 4.26 10*6/uL 3.60-5.00 [facility] Serum or plasma alanine hughes otransferase measurement without P-5'-P (enzymatic activiOrdered By: Reinaldo Amor on 10-04-2021 ALT No additional P-5'-P [Catalytic activity/Vol] 15 U/L 10-[address] [facility] Serum or plasma albumin/glob ulin mass ratioOrdered By: Reinaldo Amor on 10-04-2021 Albumin/Globulin [Mass ratio] 1.4 {ratio} [facility] Serum or plasma alkaline jaqueline sphatase measurement (enzymatic activity/volume)Ordered By: Reinaldo Amor on 10-04-2021 ALP [Catalytic activity/Vol] 103 U/L 32-[address] [facility] Serum or plasma amylase priscilla urement (enzymatic activity/volume)Ordered By: Reinaldo Amor on 10-04-2021 Amylase [Catalytic activity/Vol] 134 U/L 28-[address] [facility] Serum or plasma aspartate am inotransferase measurement (enzymatic activity/volume)Ordered By: Reinaldo Amor on 10-04-2021 AST [Catalytic activity/Vol] 20 U/L 10-[address] [facility] Serum or plasma calcium priscilla urement (mass/volume)Ordered By: Reinaldo Amor on 10-04-2021 Calcium [Mass/Vol] 9.6 mg/dL 8.2-10.2 [facility] Serum or plasma chloride daron surement (moles/volume)Ordered By: Reinaldo Amor on 10-04-2021 Chloride [Moles/Vol] 103 mmol/L 95-114 [facility] Serum or plasma ethanol priscilla urement (mass/volume)Ordered By: Reinaldo Amor on 10-04-2021 Ethanol [Mass/Vol] mg/dL [facility] Ethanol [Mass/Vol] TNP [facility] Comment on above: Test not performed Serum or plasma glucose priscilla urement (mass/volume)Ordered By: Reinaldo Amor on 10-04-2021 Glucose [Mass/Vol] 120 mg/dL 70-100 [facility] Comment on above: ADA recommended refe rence range Random Glucose Reference Range is dependent on time and content of last meal. Glucose of more than 200 mg/dL in a nonstressed, ambulatory subject supports the diagnosis of Diabetes Mellitus. Serum or plasma non-glucuron idated bilirubin measurement (mass/volume)Ordered By: Reinaldo Amor on 10-04-2021 Bilirubin.indirect [Mass/Vol] TNP [facility] Comment on above: Test not performed Serum or plasma potassium me asurement (moles/volume)Ordered By: Reinaldo Amor on 10-04-2021 Potassium [Moles/Vol] 3.7 mmol/L 3.5-5.1 [facility] Serum or plasma sodium measu rement (moles/volume)Ordered By: Reinaldo Amor on 10-04-2021 Sodium [Moles/Vol] 137 mmol/L 136-146 [facility] Serum or plasma total biliru bin measurement (mass/volume)Ordered By: Reinaldo Amor on 10-04-2021 Bilirubin [Mass/Vol] 0.5 mg/dL 0.3-1.2 [facility] Serum or plasma total carbon dioxide measurement (moles/volume)Ordered By: Reinaldo Amor on 10-04-2021 CO2 [Moles/Vol] 24.9 mmol/L 22.0-30.0 [facility] Serum or plasma urea nitroge n measurement (mass/volume)Ordered By: Reinaldo Amor on 10-04-2021 Urea nitrogen [Mass/Vol] 7 mg/dL 9-[address] [facility] Urine appearanceOrdered By: Reinaldo Amor on 10-04-2021 Appearance (U) Clear Clear [facility] Urine colorOrdered By: Ml Amor on 10-04-2021 Color (U) Yellow Yellow [facility] Urine glucose measurement by automated test strip (mass/volume)Ordered By: Reinaldo Amor on 10-04-2021 Glucose Auto test strip (U) [Mass/Vol] Normal mg/dL Normal [facility] Urine hemoglobin detection b y automated test stripOrdered By: Reinaldo Amor on 10-04-2021 Hemoglobin Auto test strip Ql (U) Negative Negative [facility] Urine leukocyte esterase det ection by automated test stripOrdered By: Reinaldo Amor on 10-04-2021 Leukocyte esterase Auto test strip Ql (U) Negative Negative [facility] Urine nitrite detection by a utomated test stripOrdered By: Reinaldo Amor on 10-04-2021 Nitrite Auto test strip Ql (U) Negative Negative [facility] Urobilinogen Auto test strip (U) [Mass/Vol]Ordered By: Reinaldo Amor on 10-04-2021 Urobilinogen (U) [Mass/Vol] Normal mg/dL Normal [facility] pH Auto test strip (U)Ordere d By: Reinaldo Amor on 10-04-2021 pH (U) 1.030 [pH] 1.001-1.[address] [facility] pH (U) 5.5 [pH] 5.0-9.[address] [facility] Basophils Auto (Bld) [#/Vol] Ordered By: Reinaldo Amor on 09-25-2021 Basophils (Bld) [#/Vol] 0.1 10*3/uL 0.0-0.[address] [facility] Basophils/100 WBC Auto (Bld) Ordered By: Reinaldo Amor on 09-25-2021 Basophils/100 WBC (Bld) 1.2 % . [facility] Blood hemoglobin measurement (mass/volume)Ordered By: Reinaldo Amor on 09-25-2021 Hemoglobin (Bld) [Mass/Vol] 14.2 g/dL 11.8-15.[address] [facility] Blood leukocytes automated c ount (number/volume)Ordered By: Reinaldo Amor on 09-25-2021 WBC (Bld) [#/Vol] 9.3 10*3/uL 4.5-11.0 [facility] Body fluid albumin measureme nt (mass/volume)Ordered By: PROVIDER TEMP on 09-25-2021 Albumin (Body fld) [Mass/Vol] 4.3 g/dL 3.2-5.[address] [facility] Creatinine and Glomerular fi ltration rate.predicted panel (S/P/Bld)Ordered By: PROVIDER TEMP on 09-25-2021 Creatinine [Mass/Vol] 0.82 mg/dL 0.44-1.03 [facility] Eosinophils Auto (Bld) [#/Vo l]Ordered By: Reinaldo Amor on 09-25-2021 Eosinophils (Bld) [#/Vol] 0.2 10*3/uL 0.0-0.[address] [facility] Eosinophils/100 WBC Auto (Bl d)Ordered By: Reinaldo Amor on 09-25-2021 Eosinophils/100 WBC (Bld) 1.9 % . [facility] Erythrocyte distribution wid th Auto (RBC) [Ratio]Ordered By: Reinaldo Amor on 09-25-2021 Erythrocyte distribution width (RBC) [Ratio] 13.7 % 11.9-15.[address] [facility] Estimated glomerular filtrat ion rate (GFR) non- AmericanOrdered By: PROVIDER TEMP on 09-25-2021 GFR/1.73 sq M.predicted among non-blacks MDRD (S/P/Bld) [Vol rate/Area] > 60 mL/Min [facility] Globulin Calc (S) [Mass/Vol] Ordered By: PROVIDER TEMMaty on 09-25-2021 Globulin (S) [Mass/Vol] 3.3 g/dL [facility] Hematocrit Auto (Bld) [Volum e fraction]Ordered By: Reinaldo Amor on 09-25-2021 Hematocrit (Bld) [Volume fraction] 42.1 % 34.0-46.[address] [facility] Laboratory - Chemistry and C hemistry - challengeOrdered By: Reinaldo Amor on 09-25-2021 Lipase [Catalytic activity/Vol] 64.0 U/L 22-[address] [facility] Laboratory - Hematology and Cell countsOrdered By: Reinaldo Amor on 09-25-2021 Nucleated RBC/100 WBC (Bld) [Ratio] 0.1 % 0-0.[address] [facility] Lymphocytes Auto (Bld) [#/Vo l]Ordered By: Reinaldo Amor on 09-25-2021 Lymphocytes (Bld) [#/Vol] 2.6 10*3/uL 1.00-4.[address] [facility] Lymphocytes/100 WBC Auto (Bl d)Ordered By: Reinaldo Amor on 09-25-2021 Lymphocytes/100 WBC (Bld) 28.1 % . [facility] MCH Auto (RBC) [Entitic mass ]Ordered By: Reinaldo Amor on 09-25-2021 MCH (RBC) [Entitic mass] 32.5 pg 24.7-34.[address] [facility] MCHC Auto (RBC) [Mass/Vol]Or dered By: Reinaldo Amor on 09-25-2021 MCHC (RBC) [Mass/Vol] 33.7 g/dL 32.0-35.0 [facility] MCV Auto (RBC) [Entitic vol] Ordered By: Reinaldo Amor on 09-25-2021 MCV (RBC) [Entitic vol] 96.7 fL 80-[address] [facility] Monocytes Auto (Bld) [#/Vol] Ordered By: Reinaldo Amor on 09-25-2021 Monocytes (Bld) [#/Vol] 0.8 10*3/uL 0.0-0.[address] [facility] Monocytes/100 WBC Auto (Bld) Ordered By: Reinaldo Amor on 09-25-2021 Monocytes/100 WBC (Bld) 8.2 % . [facility] Neutrophils Auto (Bld) [#/Vo l]Ordered By: Reinaldo Amor on 09-25-2021 Neutrophils (Bld) [#/Vol] 5.6 10*3/uL 1.8-7.[address] [facility] Neutrophils/100 WBC Auto (Bl d)Ordered By: Reinaldo Amor on 09-25-2021 Neutrophils/100 WBC (Bld) 60.6 % . [facility] No Panel InformationOrdered By: PROVIDER TEMP on 09-25-2021 Estimated GFR () > 60 mL/Min [facility] Comment on above: GFR estimated refere nce range: According to KDOQI guidelines, <60 ml/min/1.73m2 is sufficient to diagnose a patient with chronic kidney disease. Pharmacy Creatinine Clearance (Chem 63.[address] [facility] Platelet mean volume Auto (B ld) [Entitic vol]Ordered By: Reinaldo Amor on 09-25-2021 Platelet mean volume (Bld) [Entitic vol] 8.6 fL 6.3-10.[address] [facility] Platelets Auto (Bld) [#/Vol] Ordered By: Reinaldo Amor on 09-25-2021 Platelets (Bld) [#/Vol] 221 10*3/uL 150-[address] [facility] Protein [Mass/volume] in Ser um or PlasmaOrdered By: PROVIDER TEMP on 09-25-2021 Protein [Mass/Vol] 7.6 g/dL 6.1-7.9 [facility] RBC Auto (Bld) [#/Vol]Ordere d By: Reinaldo Amor on 09-25-2021 RBC (Bld) [#/Vol] 4.35 10*6/uL 3.60-5.00 [facility] Serum or plasma alanine hughes otransferase measurement without P-5'-P (enzymatic activiOrdered By: PROVIDER TEMP on 09-25-2021 ALT No additional P-5'-P [Catalytic activity/Vol] 14 U/L 10-[address] [facility] Serum or plasma albumin/glob ulin mass ratioOrdered By: PROVIDER TEMP on 09-25-2021 Albumin/Globulin [Mass ratio] 1.3 {ratio} [facility] Serum or plasma alkaline jaqueline sphatase measurement (enzymatic activity/volume)Ordered By: PROVIDER TEMP on 09-25-2021 ALP [Catalytic activity/Vol] 127 U/L 32-[address] [facility] Serum or plasma amylase priscilla urement (enzymatic activity/volume)Ordered By: Reinaldo Amor on 09-25-2021 Amylase [Catalytic activity/Vol] 171 U/L 28-[address] [facility] Serum or plasma aspartate am inotransferase measurement (enzymatic activity/volume)Ordered By: PROVIDER TEMP on 09-25-2021 AST [Catalytic activity/Vol] 21 U/L 10-[address] [facility] Serum or plasma calcium priscilla urement (mass/volume)Ordered By: PROVIDER TEMP on 09-25-2021 Calcium [Mass/Vol] 10.1 mg/dL 8.2-10.2 [facility] Serum or plasma chloride daron surement (moles/volume)Ordered By: PROVIDER TEMP on 09-25-2021 Chloride [Moles/Vol] 103 mmol/L 95-114 [facility] Serum or plasma glucose priscilla urement (mass/volume)Ordered By: PROVIDER TEMP on 09-25-2021 Glucose [Mass/Vol] 93 mg/dL 70-100 [facility] Comment on above: ADA recommended refe rence range Random Glucose Reference Range is dependent on time and content of last meal. Glucose of more than 200 mg/dL in a nonstressed, ambulatory subject supports the diagnosis of Diabetes Mellitus. Serum or plasma potassium me asurement (moles/volume)Ordered By: PROVIDER TEMP on 09-25-2021 Potassium [Moles/Vol] 3.9 mmol/L 3.5-5.1 [facility] Serum or plasma sodium measu rement (moles/volume)Ordered By: PROVIDER TEMP on 09-25-2021 Sodium [Moles/Vol] 137 mmol/L 136-146 [facility] Serum or plasma total biliru bin measurement (mass/volume)Ordered By: PROVIDER TEMP on 09-25-2021 Bilirubin [Mass/Vol] 0.3 mg/dL 0.3-1.2 [facility] Serum or plasma total carbon dioxide measurement (moles/volume)Ordered By: PROVIDER TEMP on 09-25-2021 CO2 [Moles/Vol] 26.3 mmol/L 22.0-30.0 [facility] Serum or plasma urea nitroge n measurement (mass/volume)Ordered By: PROVIDER TEMP on 09-25-2021 Urea nitrogen [Mass/Vol] 8 mg/dL 9-[address] [facility] AMYLASEon 09-17-2021 Amylase [Catalytic activity/Vol] 142 U/L Critically high 25-115 [facility] Comment on above: Performed By: #### A MY, CMP, LIPA ####[facility] [address] [place] [id number]. Keturah Fisher CBC AUTO DIFFon 09-17-2021 BASO # 0.1 103/ul Normal 0.0-0.1 [facility] Comment on above: Performed By: #### C BC ####[facility] [address] [place] [id number] Fisher Basophils/100 WBC (Bld) 0.7 % Normal 0.2-2.0 [facility] Comment on above: Performed By: #### C BC ####[facility] [address] [place] [id number]. Keturah Fisher EO # 0.1 103/ul Normal 0.0-0.7 [facility] Comment on above: Performed By: #### C BC ####[facility] [address] [place] [address]Dr. Keturah Fisher Eosinophils/100 WBC (Bld) 1.3 % Normal 0.9-7.0 [facility] Comment on above: Performed By: #### C BC ####[facility] [address] [place], [place] [address]Dr. Keturah Fisher Erythrocyte distribution width (RBC) [Ratio] 13.2 % Normal 11.0-15.0 [facility] Comment on above: Performed By: #### C BC ####[facility] [address] [place], [place] [address]Dr. Keturah Fisher Hematocrit (Bld) [Volume fraction] 43.7 % Normal 36.0-48.0 [facility] Comment on above: Performed By: #### C BC ####[facility] [address] [place], [place] [address]Dr. Keturah Fisher Hemoglobin (Bld) [Mass/Vol] 14.7 g/dL Normal 12.0-16.0 [facility] Comment on above: Performed By: #### C BC ####[facility] [address] [place], [place] [address]Dr. Keturah Fisher IG # 0.01 10e3/ul Normal 0.00-0.03 [facility] Comment on above: Performed By: #### C BC ####[facility] [address] [place], [place] [address]Dr. Keturah Fisher IG % 0.1 % Normal 0.0-0.5 [facility] Comment on above: Performed By: #### C BC ####[facility] [address] [place], [place] [address]DrGopal Keturah Phillip LYMPH # 2.7 103/ul Normal 1.2-3.8 [facility] Comment on above: Performed By: #### C BC ####[facility] [address] [place], [place] [address]Dr. Keturah Fisher Lymphocytes/100 WBC (Bld) 30.1 % Normal 20.5-60.0 [facility] Comment on above: Performed By: #### C BC ####[facility] [address] [place] [address]Dr. Keturah Fisher MANUAL DIFF REQ NO Normal [facility] Comment on above: Performed By: #### C BC ####[facility] [address] [place] [address]Dr. Keturah Fisher MCH (RBC) [Entitic mass] 32.4 pg Normal 26.7-34.0 [facility] Comment on above: Performed By: #### C BC ####[facility] [address] [place], [place] [address]Dr. Keturah Fisher MCHC (RBC) [Mass/Vol] 33.6 g/dL Normal 29.9-35.2 [facility] Comment on above: Performed By: #### C BC ####[facility] [address] [place], [place] [address]Dr. Keturah Fisher MCV (RBC) [Entitic vol] 96.3 fL Normal 81.0-99.0 [facility] Comment on above: Performed By: #### C BC ####[facility] [address] [place], [place] [address]Dr. Keturah Fisher MONO # 0.8 103/ul Normal 0.3-0.8 [facility] Comment on above: Performed By: #### C BC ####[facility] [address] [place], [place] [address]Dr. Keturah Fisher Monocytes/100 WBC (Bld) 8.7 % Normal 1.7-12.0 [facility] Comment on above: Performed By: #### C BC ####[facility] [address] [place], [place] [address]Dr. Keturah Fisher NEUT # 5.4 103/ul Normal 1.4-6.5 [facility] Comment on above: Performed By: #### C BC ####[facility] [address] [place], [place] [address]Dr. Keturah Fisher Neutrophils/100 WBC (Bld) 59.1 % Normal 43.0-75.0 [facility] Comment on above: Performed By: #### C BC ####[facility] [address] [place] [address]DrGopal Fisher Platelet mean volume (Bld) [Entitic vol] 9.6 fL Normal 9.5-13.5 [facility] Comment on above: Performed By: #### C BC ####[facility] [address] [place] [address]Dr. Keturah Fisher PLT 272 103/ul Normal 150-450 [facility] Comment on above: Performed By: #### C BC ####[facility] [address] [place] [address]Dr. Keturah Fisher RBC 4.54 106/ul Normal 4.20-5.40 [facility] Comment on above: Performed By: #### C BC ####[facility] [address] [place] [address]Dr. Keturah Fisher WBC 9.1 103/ul Normal 4.0-11.0 [facility] Comment on above: Performed By: #### C BC ####[facility] [address] [place] [address]DrGopal Fisher ETHANOL (BLD ALC)on 09-18-19 22 ALC NOTE NOTE: 80 mg/dl is th e legal limit for a blood alcohol level Normal [facility] Comment on above: Performed By: #### L IPA, CMP, CRP, NAT #### [facility] [address] [address] [address] Keturah Fisher Ethanol [Mass/Vol] mg/dL Normal [facility] Comment on above: Performed By: #### L IPA, CMP, CRP, NAT #### [facility] [address] [address] [address] Keturah Fisher LIPASEon 09-17-2021 Lipase [Catalytic activity/Vol] 524.0 U/L Critically high 73.0-393.0 [facility] Comment on above: Performed By: #### C BC #### [facility] [address] [place] [address] Dr. Keturah Fisher PROF 14(COMP METB)on 022 Albumin [Mass/Vol] 3.9 g/dL Normal 3.4-5.0 [facility] Comment on above: Performed By: #### C BC #### [facility] [address] [place] [address] Dr. Keturah Fisher Albumin/Globulin [Mass ratio] 1.1 {ratio} Normal [facility] Comment on above: Performed By: #### C BC #### [facility] [address] [place] [address] Dr. Keturah Fisher ALP [Catalytic activity/Vol] 136 U/L Critically high 46-116 [facility] Comment on above: Performed By: #### C BC #### [facility] [address] [place] [address] Dr. Keturah Fisher ALT [Catalytic activity/Vol] 21 U/L Normal 14-59 [facility] Comment on above: Performed By: #### C BC #### [facility] [address] [place] [address] Dr. Keturah Fisher Anion gap [Moles/Vol] 12.7 mmol/L Normal [facility] Comment on above: Performed By: #### C BC #### [facility] [address] [place] [address] Dr. Keturah Fisher AST [Catalytic activity/Vol] 16 U/L Normal 15-37 [facility] Comment on above: Performed By: #### C BC #### [facility] [address] [place] [address] Dr. Keturah Fisher Bilirubin [Mass/Vol] 0.2 mg/dL Normal 0.2-1.0 [facility] Comment on above: Performed By: #### C BC #### [facility] [address] [place] [address] Dr. Keturah Fisher Calcium [Mass/Vol] 9.9 mg/dL Normal 8.5-10.1 [facility] Comment on above: Performed By: #### C BC #### [facility] [address] [address] [address] Keturah Fisher Chloride [Moles/Vol] 106 mmol/L Normal 98-107 [facility] Comment on above: Performed By: #### C BC #### [facility] [address] [place] [address] Dr. Keturah Fisher CO2 [Moles/Vol] 25.9 mmol/L Normal 21.0-32.0 [facility] Comment on above: Performed By: #### C BC #### [facility] [address] [place] [address] Dr. Keturah Fisher Creatinine [Mass/Vol] 0.96 mg/dL Normal 0.55-1.02 [facility] Comment on above: Performed By: #### C BC #### [facility] [address] [place] [address] Dr. Keturah Fisher EGFR-AF CITIZEN [place] >60 Normal >=60 [facility] Comment on above: Performed By: #### C BC #### [facility] [address] [place] [address] Dr. Keturah Fisher EGFR-NON AF CITIZEN OF [place] >60 Normal >=60 [facility] Comment on above: Performed By: #### C BC #### [facility] [address] [place] [address] Dr. Keturah Fisher Globulin (S) [Mass/Vol] 3.5 g/dL Normal [facility] Comment on above: Performed By: #### C BC #### [facility] [address] [place] [address] Dr. Keturah Fisher Glucose [Mass/Vol] 113 mg/dL Critically high 74-106 [facility] Comment on above: Performed By: #### C BC #### [facility] [address] [place] [address] Dr. Keturah Fisher Potassium [Moles/Vol] 3.6 mmol/L Normal 3.5-5.1 [facility] Comment on above: Performed By: #### C BC #### [facility] [address] [place] [address] Dr. Keturah Fisher Protein [Mass/Vol] 7.4 g/dL Normal 6.4-8.2 [facility] Comment on above: Performed By: #### C BC #### [facility] [address] [place] [address] Dr. Keturah Fisher Sodium [Moles/Vol] 141 mmol/L Normal 136-145 [facility] Comment on above: Performed By: #### C BC #### [facility] [address] [place] [address] Dr. Keturah Fisher Urea nitrogen [Mass/Vol] 8.0 mg/dL Normal 7.0-18.0 [facility] Comment on above: Performed By: #### C BC #### [facility] [address] [place] [address] Dr. Keturah Fisher Urea nitrogen/Creatinine [Mass ratio] 8.3 mg/mg Normal [facility] Comment on above: Performed By: #### C BC #### [facility] [address] [place] [address] Dr. Keturah Fisher AMYLASEon 08-26-2021 Amylase [Catalytic activity/Vol] 94 U/L Normal 25-115 [facility] Comment on above: Performed By: #### A MY, CMP, LIPA ####[facility] [address] [place], [place] [address]Dr. Keturah Fisher CBC AUTO DIFFon 08-26-2021 BASO # 0.1 103/ul Normal 0.0-0.1 [facility] Comment on above: Performed By: #### L IPA, CMP, CRP, NAT #### [facility] [address] [place] [address] Dr. Keturah Fisher Basophils/100 WBC (Bld) 0.7 % Normal 0.2-2.0 [facility] Comment on above: Performed By: #### L IPA, CMP, CRP, NAT #### [facility] [address] [place] [address] Dr. Keturah Fisher EO # 0.2 103/ul Normal 0.0-0.7 [facility] Comment on above: Performed By: #### L IPA, CMP, CRP, NAT #### [facility] [address] [place] [address] Dr. Keturah Fisher Eosinophils/100 WBC (Bld) 2.5 % Normal 0.9-7.0 [facility] Comment on above: Performed By: #### L IPA, CMP, CRP, NAT #### [facility] [address] [place] [address] Dr. Keturah Fisher Erythrocyte distribution width (RBC) [Ratio] 13.1 % Normal 11.0-15.0 [facility] Comment on above: Performed By: #### L IPA, CMP, CRP, NAT #### [facility] [address] [place] [address] Dr. Keturah Fisher Hematocrit (Bld) [Volume fraction] 42.4 % Normal 36.0-48.0 [facility] Comment on above: Performed By: #### L IPA, CMP, CRP, NAT #### [facility] [address] [place] [address] Dr. Keturah Fisher Hemoglobin (Bld) [Mass/Vol] 14.1 g/dL Normal 12.0-16.0 [facility] Comment on above: Performed By: #### L IPA, CMP, CRP, NAT #### [facility] [address] [place] [address] Dr. Keturah Fisher IG # 0.03 10e3/ul Normal 0.00-0.03 [facility] Comment on above: Performed By: #### L IPA, CMP, CRP, NAT #### [facility] [address] [place] [address] Dr. Keturah Fisher IG % 0.3 % Normal 0.0-0.5 [facility] Comment on above: Performed By: #### L IPA, CMP, CRP, NAT #### [facility] [address] [place] [address] Dr. Keturah Fisher LYMPH # 2.6 103/ul Normal 1.2-3.8 [facility] Comment on above: Performed By: #### L IPA, CMP, CRP, NAT #### [facility] [address] [place] [address] Dr. Keturah Fisher Lymphocytes/100 WBC (Bld) 27.7 % Normal 20.5-60.0 [facility] Comment on above: Performed By: #### L IPA, CMP, CRP, NAT #### [facility] [address] [place] [address] Dr. Keturah Fisher MANUAL DIFF REQ NO Normal [facility] Comment on above: Performed By: #### L IPA, CMP, CRP, NAT #### [facility] [address] [place] [address] Dr. Keturah Fisher MCH (RBC) [Entitic mass] 32.6 pg Normal 26.7-34.0 [facility] Comment on above: Performed By: #### L IPA, CMP, CRP, NAT #### [facility] [address] [place] [address] Dr. Keturah Fisher MCHC (RBC) [Mass/Vol] 33.3 g/dL Normal 29.9-35.2 [facility] Comment on above: Performed By: #### L IPA, CMP, CRP, NAT #### [facility] [address] [place] [address] Dr. Keturah Fisher MCV (RBC) [Entitic vol] 97.9 fL Normal 81.0-99.0 [facility] Comment on above: Performed By: #### L IPA, CMP, CRP, NAT #### [facility] [address] [place] [address] Dr. Keturah Fisher MONO # 1.2 103/ul Critically high 0.3-0.8 [facility] Comment on above: Performed By: #### L IPA, CMP, CRP, NAT #### [facility] [address] [place] [address] Dr. Keturah Fisher Monocytes/100 WBC (Bld) 12.9 % Critically high 1.7-12.0 [facility] Comment on above: Performed By: #### L IPA, CMP, CRP, NAT #### [facility] [address] [place] [address] Dr. Keturah Fisher NEUT # 5.3 103/ul Normal 1.4-6.5 [facility] Comment on above: Performed By: #### L IPA, CMP, CRP, NAT #### [facility] [address] [address] [address] Keturah Fisher Neutrophils/100 WBC (Bld) 55.9 % Normal 43.0-75.0 [facility] Comment on above: Performed By: #### L IPA, CMP, CRP, NAT #### [facility] [address] [address] [address] Keturah Fisher Platelet mean volume (Bld) [Entitic vol] 9.8 fL Normal 9.5-13.5 [facility] Comment on above: Performed By: #### L IPA, CMP, CRP, NAT #### [facility] [address] [place] [address] Dr. Keturah Fisher PLT 229 103/ul Normal 150-450 [facility] Comment on above: Performed By: #### L IPA, CMP, CRP, NAT #### [facility] [address] [place] [address] Dr. Keturah Fisher RBC 4.33 106/ul Normal 4.20-5.40 [facility] Comment on above: Performed By: #### L IPA, CMP, CRP, NAT #### [facility] [address] [place] [address] Dr. Keturah Fisher WBC 9.5 103/ul Normal 4.0-11.0 [facility] Comment on above: Performed By: #### L IPA, CMP, CRP, NAT #### [facility] [address] [place] [address] Dr. Keturah Fisher LIPASEon 08-26-2021 Lipase [Catalytic activity/Vol] 146.0 U/L Normal 73.0-393.0 [facility] Comment on above: Performed By: #### A MY, CMP, LIPA ####[facility] [address] [place] [address]Dr. Keturah Fisher PROF 14(COMP METB)on 022 Albumin [Mass/Vol] 3.5 g/dL Normal 3.4-5.0 [facility] Comment on above: Performed By: #### A MY, CMP, LIPA ####[facility] [address] [place] [address]Dr. Elisaeli Fisher Albumin/Globulin [Mass ratio] 1.1 {ratio} Normal [facility] Comment on above: Performed By: #### A MY, CMP, LIPA ####[facility] [address] [place] [address]Dr. Keturah Fisher ALP [Catalytic activity/Vol] 139 U/L Critically high 46-116 [facility] Comment on above: Performed By: #### A MY, CMP, LIPA ####[facility] [address] [place] [address]Dr. Keturah Fisher ALT [Catalytic activity/Vol] 21 U/L Normal 14-59 [facility] Comment on above: Performed By: #### A MY, CMP, LIPA ####[facility] [address] [place] [address]Dr. Keturah Fisher Anion gap [Moles/Vol] 11.4 mmol/L Normal [facility] Comment on above: Performed By: #### A MY, CMP, LIPA ####[facility] [address] [place] [address]Dr. Keturah Fisher AST [Catalytic activity/Vol] 21 U/L Normal 15-37 [facility] Comment on above: Performed By: #### A MY, CMP, LIPA ####[facility] [address] [place] [address]Dr. Keturah Fisher Bilirubin [Mass/Vol] 0.2 mg/dL Normal 0.2-1.0 [facility] Comment on above: Performed By: #### A MY, CMP, LIPA ####[facility] [address] [place] [address]Dr. Keturah Fisher Calcium [Mass/Vol] 9.2 mg/dL Normal 8.5-10.1 [facility] Comment on above: Performed By: #### A MY, CMP, LIPA ####[facility] [address] [place] [address]Dr. Keturah Fisher Chloride [Moles/Vol] 107 mmol/L Normal 98-107 [facility] Comment on above: Performed By: #### A MY, CMP, LIPA ####[facility] [address] [place] [address]Dr. Keturah Fisher CO2 [Moles/Vol] 27.9 mmol/L Normal 21.0-32.0 [facility] Comment on above: Performed By: #### A MY, CMP, LIPA ####[facility] [address] [place] [address]Dr. Keturah Phillip Creatinine [Mass/Vol] 0.84 mg/dL Normal 0.55-1.02 [facility] Comment on above: Performed By: #### A MY, CMP, LIPA ####[facility] [address] [place] [address]Dr. Keturah Phillip EGFR-AF CITIZEN [place] >60 Normal >=60 [facility] Comment on above: Performed By: #### A MY, CMP, LIPA ####[facility] [address] [place] [address]Dr. Keturah Phillip EGFR-NON AF CITIZEN OF [place] >60 Normal >=60 [facility] Comment on above: Performed By: #### A MY, CMP, LIPA ####[facility] [address] [place] [address]Dr. Keturah Phillip Globulin (S) [Mass/Vol] 3.3 g/dL Normal [facility] Comment on above: Performed By: #### A MY, CMP, LIPA ####[facility] [address] [place] [address]Dr. Keturah Phillip Glucose [Mass/Vol] 106 mg/dL Normal 74-106 [facility] Comment on above: Performed By: #### A MY, CMP, LIPA ####[facility] [address] [place] [address]Dr. Keturah Fisher Potassium [Moles/Vol] 4.3 mmol/L Normal 3.5-5.1 [facility] Comment on above: Performed By: #### A MY, CMP, LIPA ####[facility] [address] [place] [address]Dr. Keturah Fisher Protein [Mass/Vol] 6.8 g/dL Normal 6.4-8.2 [facility] Comment on above: Performed By: #### A MY, CMP, LIPA ####[facility] [address] [place], [place] [address]Mc. Keturah Fisher Sodium [Moles/Vol] 142 mmol/L Normal 136-145 [facility] Comment on above: Performed By: #### A MY, CMP, LIPA ####[facility] [address] [place], [place] [address]Yb. Keturah Fisher Urea nitrogen [Mass/Vol] 11.0 mg/dL Normal 7.0-18.0 [facility] Comment on above: Performed By: #### A MY, CMP, LIPA ####[facility] [address] [place] [id number]. Keturah Fisher Urea nitrogen/Creatinine [Mass ratio] 13.1 mg/mg Normal [facility] Comment on above: Performed By: #### A MY, CMP, LIPA ####[facility] [address] [place] [id number]. Keturah Fisher XR ABD FLAT UP_PA Jorje [...] MILADIS BARRERA Date: 2021-08-26 04:59 Normal [facility] AMYLASEon 08-22-2021 Amylase [Catalytic activity/Vol] 155 U/L Critically high 25-115 [facility] Comment on above: Performed By: #### C MP, NAT, LIPA #### [facility] [address] [place] [address] Dr. Keturha Fisher CBC AUTO DIFFon 08-22-2021 BASO # 0.1 103/ul Normal 0.0-0.1 [facility] Comment on above: Performed By: #### L IPA, CMP, CRP, NAT #### [facility] [address] [place] [address] Dr. Keturah Fisher Basophils/100 WBC (Bld) 0.7 % Normal 0.2-2.0 [facility] Comment on above: Performed By: #### L IPA, CMP, CRP, NAT #### [facility] [address] [place] [address] Dr. Keturah Fisher EO # 0.1 103/ul Normal 0.0-0.7 [facility] Comment on above: Performed By: #### L IPA, CMP, CRP, NAT #### [facility] [address] [place] [address] Dr. Keturah Fisher Eosinophils/100 WBC (Bld) 0.7 % Critically low 0.9-7.0 [facility] Comment on above: Performed By: #### L IPA, CMP, CRP, NAT #### [facility] [address] [place] [address] Dr. Keturah Fisher Erythrocyte distribution width (RBC) [Ratio] 13.2 % Normal 11.0-15.0 [facility] Comment on above: Performed By: #### L IPA, CMP, CRP, NAT #### [facility] [address] [place] [address] Dr. Keturah Fisher Hematocrit (Bld) [Volume fraction] 41.1 % Normal 36.0-48.0 [facility] Comment on above: Performed By: #### L IPA, CMP, CRP, NAT #### [facility] [address] [place] [address] Dr. Keturah Fisher Hemoglobin (Bld) [Mass/Vol] 13.8 g/dL Normal 12.0-16.0 [facility] Comment on above: Performed By: #### L IPA, CMP, CRP, NAT #### [facility] [address] [place] [address] Dr. Keturah Fisher IG # 0.03 10e3/ul Normal 0.00-0.03 [facility] Comment on above: Performed By: #### L IPA, CMP, CRP, NAT #### [facility] [address] [place] [address] Dr. Keturah Fisher IG % 0.2 % Normal 0.0-0.5 [facility] Comment on above: Performed By: #### L IPA, CMP, CRP, NAT #### [facility] [address] [place] [address] Dr. eKturah Fisher LYMPH # 2.6 103/ul Normal 1.2-3.8 [facility] Comment on above: Performed By: #### L IPA, CMP, CRP, NAT #### [facility] [address] [place] [address] Dr. Keturah Fisher Lymphocytes/100 WBC (Bld) 21.4 % Normal 20.5-60.0 [facility] Comment on above: Performed By: #### L IPA, CMP, CRP, NAT #### [facility] [address] [place] [address] Dr. Keturah Fisher MANUAL DIFF REQ NO Normal [facility] Comment on above: Performed By: #### L IPA, CMP, CRP, NAT #### [facility] [address] [place] [address] Dr. Keturah Fisher MCH (RBC) [Entitic mass] 32.2 pg Normal 26.7-34.0 [facility] Comment on above: Performed By: #### L IPA, CMP, CRP, NAT #### [facility] [address] [place] [address] Dr. Keturah Fisher MCHC (RBC) [Mass/Vol] 33.6 g/dL Normal 29.9-35.2 [facility] Comment on above: Performed By: #### L IPA, CMP, CRP, NAT #### [facility] [address] [place] [address] Dr. Keturah Fisher MCV (RBC) [Entitic vol] 95.8 fL Normal 81.0-99.0 [facility] Comment on above: Performed By: #### L IPA, CMP, CRP, NAT #### [facility] [address] [place] [address] Dr. Keturah Fisher MONO # 0.9 103/ul Critically high 0.3-0.8 [facility] Comment on above: Performed By: #### L IPA, CMP, CRP, NAT #### [facility] [address] [place] [address] Dr. Keturah Fisher Monocytes/100 WBC (Bld) 7.6 % Normal 1.7-12.0 [facility] Comment on above: Performed By: #### L IPA, CMP, CRP, NAT #### [facility] [address] [place] [address] Dr. Keturah Fisher NEUT # 8.5 103/ul Critically high 1.4-6.5 [facility] Comment on above: Performed By: #### L IPA, CMP, CRP, NAT #### [facility] [address] [place] [address] Dr. Keturah Fisher Neutrophils/100 WBC (Bld) 69.4 % Normal 43.0-75.0 [facility] Comment on above: Performed By: #### L IPA, CMP, CRP, NAT #### [facility] [address] [place] [address] Dr. Keturah Fisher Platelet mean volume (Bld) [Entitic vol] 9.5 fL Normal 9.5-13.5 [facility] Comment on above: Performed By: #### L IPA, CMP, CRP, NAT #### [facility] [address] [place] [address] Dr. Keturah Fisher PLT 261 103/ul Normal 150-450 [facility] Comment on above: Performed By: #### L IPA, CMP, CRP, NAT #### [facility] [address] [place] [address] Dr. Keturah Fisher RBC 4.29 106/ul Normal 4.20-5.40 [facility] Comment on above: Performed By: #### L IPA, CMP, CRP, NAT #### [facility] [address] [place] [address] Dr. Keturah Fisher WBC 12.2 103/ul Critically high 4.0-11.0 [facility] Comment on above: Performed By: #### L IPA, CMP, CRP, NAT #### [facility] [address] [place] [address] Dr. Keturah Fisher LIPASEon 08-22-2021 Lipase [Catalytic activity/Vol] 419.0 U/L Critically high 73.0-393.0 [facility] Comment on above: Performed By: #### C MP, NAT, LIPA #### [facility] [address] [place] [address] Dr. Keturah Fisher PROF 14(COMP METB)on 022 Albumin [Mass/Vol] 3.9 g/dL Normal 3.4-5.0 [facility] Comment on above: Performed By: #### C MP, NAT, LIPA #### [facility] [address] [place] [address] Dr. Keturah Fisher Albumin/Globulin [Mass ratio] 1.2 {ratio} Normal [facility] Comment on above: Performed By: #### C MP, NAT, LIPA #### [facility] [address] [place] [address] Dr. Keturah Fisher ALP [Catalytic activity/Vol] 137 U/L Critically high 46-116 [facility] Comment on above: Performed By: #### C MP, NAT, LIPA #### [facility] [address] [place] [address] Dr. Keturah Fisher ALT [Catalytic activity/Vol] 22 U/L Normal 14-59 [facility] Comment on above: Performed By: #### C MP, NAT, LIPA #### [facility] [address] [place] [address] Dr. Keturah Fisher Anion gap [Moles/Vol] 12.9 mmol/L Normal [facility] Comment on above: Performed By: #### C LIZY NAT, LIPA #### [facility] [address] [address] [address] Keturah Fisher AST [Catalytic activity/Vol] 20 U/L Normal 15-37 [facility] Comment on above: Performed By: #### C MP NAT, LIPA #### [facility] [address] [place] [address] Dr. Keturah Fisher Bilirubin [Mass/Vol] 0.2 mg/dL Normal 0.2-1.0 [facility] Comment on above: Performed By: #### C LIZY NAT, LIPA #### [facility] [address] [place] [address] Dr. Keturah Fisher Calcium [Mass/Vol] 9.5 mg/dL Normal 8.5-10.1 [facility] Comment on above: Performed By: #### C LIZY NAT, LIPA #### [facility] [address] [place] [address] Dr. Keturah Fisher Chloride [Moles/Vol] 104 mmol/L Normal 98-107 [facility] Comment on above: Performed By: #### C LIZY NAT, LIPA #### [facility] [address] [place] [address] Dr. Keturah Fisher CO2 [Moles/Vol] 23.7 mmol/L Normal 21.0-32.0 [facility] Comment on above: Performed By: #### C LIZY NAT, LIPA #### [facility] [address] [place] [address] Dr. Keturah Fisher Creatinine [Mass/Vol] 0.85 mg/dL Normal 0.55-1.02 [facility] Comment on above: Performed By: #### C LIZY NAT, LIPA #### [facility] [address] [place] [address] Dr. Keturah Fisher EGFR-AF CITIZEN [place] >60 Normal >=60 [facility] Comment on above: Performed By: #### C LIZY NAT, LIPA #### [facility] [address] [place] [address] Dr. Keturah Fisher EGFR-NON AF CITIZEN OF [place] >60 Normal >=60 [facility] Comment on above: Performed By: #### C NAT MEDEL LIPA #### [facility] [address] [address] [address] Keturah Fisher Globulin (S) [Mass/Vol] 3.3 g/dL Normal [facility] Comment on above: Performed By: #### C NAT MEDEL LIPA #### [facility] [address] [address] [address] Keturah Fisher Glucose [Mass/Vol] 130 mg/dL Critically high 74-106 [facility] Comment on above: Performed By: #### C NAT MEDEL LIPA #### [facility] [address] [place] [address] Dr. Keturah Fisher Potassium [Moles/Vol] 3.6 mmol/L Normal 3.5-5.1 [facility] Comment on above: Performed By: #### C NAT MEDEL LIPA #### [facility] [address] [place] [address] Dr. Keturah Fisher Protein [Mass/Vol] 7.2 g/dL Normal 6.4-8.2 [facility] Comment on above: Performed By: #### C NAT MEDEL LIPA #### [facility] [address] [place] [address] Dr. Keturah Fisher Sodium [Moles/Vol] 137 mmol/L Normal 136-145 [facility] Comment on above: Performed By: #### C NAT MEDEL LIPA #### [facility] [address] [place] [address] Dr. Keturah Fisher Urea nitrogen [Mass/Vol] 9.0 mg/dL Normal 7.0-18.0 [facility] Comment on above: Performed By: #### C NAT MEDEL LIPA #### [facility] [address] [address] [address] Keturah Fisher Urea nitrogen/Creatinine [Mass ratio] 10.6 mg/mg Normal [facility] Comment on above: Performed By: #### C NAT MEDEL LIPA #### [facility] [address] [place], [place] [address] Dr. Keturah Fisher XR ABD FLAT UP_PA [...] TRI HANSON Date: 2021-08-22 14:54 Normal [facility] CBC AUTO DIFFon 08-13-2021 BASO # 0.1 103/ul Normal 0.0-0.1 [facility] Comment on above: Performed By: #### C BC ####[facility] [address] [place] [address]Dr. Keturah Fisher Basophils/100 WBC (Bld) 0.6 % Normal 0.2-2.0 [facility] Comment on above: Performed By: #### C BC ####[facility] [address] [place] [address]DrGopal Fisher EO # 0.1 103/ul Normal 0.0-0.7 [facility] Comment on above: Performed By: #### C BC ####[facility] [address] [place] [address]Dr. Keturah Fisher Eosinophils/100 WBC (Bld) 1.1 % Normal 0.9-7.0 [facility] Comment on above: Performed By: #### C BC ####[facility] [address] [place] [address]DrGopal Fisher Erythrocyte distribution width (RBC) [Ratio] 12.6 % Normal 11.0-15.0 [facility] Comment on above: Performed By: #### C BC ####[facility] [address] [place] [address]Dr. Keturah Fisher Hematocrit (Bld) [Volume fraction] 42.3 % Normal 36.0-48.0 [facility] Comment on above: Performed By: #### C BC ####[facility] [address] [place] [address]Dr. Keturah Fisher Hemoglobin (Bld) [Mass/Vol] 14.1 g/dL Normal 12.0-16.0 [facility] Comment on above: Performed By: #### C BC ####[facility] [address] [place] [address]Dr. Elisaeli Phillip IG # 0.03 10e3/ul Normal 0.00-0.03 [facility] Comment on above: Performed By: #### C BC ####[facility] [address] [place], [place] [address]Dr. Keturah Fisher IG % 0.3 % Normal 0.0-0.5 [facility] Comment on above: Performed By: #### C BC ####[facility] [address] [place] [address]Dr. Elisaeli Fisher LYMPH # 2.4 103/ul Normal 1.2-3.8 [facility] Comment on above: Performed By: #### C BC ####[facility] [address] [place], [place] [address]Dr. Elisaeli Fisher Lymphocytes/100 WBC (Bld) 22.3 % Normal 20.5-60.0 [facility] Comment on above: Performed By: #### C BC ####[facility] [address] [place] [address]Dr. Elisaeli Fisher MANUAL DIFF REQ NO Normal [facility] Comment on above: Performed By: #### C BC ####[facility] [address] [place] [address]Dr. Keturah Phillip MCH (RBC) [Entitic mass] 32.5 pg Normal 26.7-34.0 [facility] Comment on above: Performed By: #### C BC ####[facility] [address] [place], [place] [address]Dr. Keturah Fisher MCHC (RBC) [Mass/Vol] 33.3 g/dL Normal 29.9-35.2 [facility] Comment on above: Performed By: #### C BC ####[facility] [address] [place] [id number]. Keturah Fisher MCV (RBC) [Entitic vol] 97.5 fL Normal 81.0-99.0 [facility] Comment on above: Performed By: #### C BC ####[facility] [address] [place] [id number]. Keturah Fisher MONO # 1.0 103/ul Critically high 0.3-0.8 [facility] Comment on above: Performed By: #### C BC ####[facility] [address] [place] [address]Dr. Elisaeli Fisher Monocytes/100 WBC (Bld) 8.7 % Normal 1.7-12.0 [facility] Comment on above: Performed By: #### C BC ####[facility] [address] [place] [address]Dr. Keturah Fisher NEUT # 7.3 103/ul Critically high 1.4-6.5 [facility] Comment on above: Performed By: #### C BC ####[facility] [address] [place] [address]Dr. Keturah Fisher Neutrophils/100 WBC (Bld) 67.0 % Normal 43.0-75.0 [facility] Comment on above: Performed By: #### C BC ####[facility] [address] [place] [id number]. Keturah Phillip Platelet mean volume (Bld) [Entitic vol] 9.5 fL Normal 9.5-13.5 [facility] Comment on above: Performed By: #### C BC ####[facility] [address] [place] [id number]. Keturah Phillip PLT 272 103/ul Normal 150-450 [facility] Comment on above: Performed By: #### C BC ####[facility] [address] [place], [place] [address]Mi. Keturah Fisher RBC 4.34 106/ul Normal 4.20-5.40 [facility] Comment on above: Performed By: #### C BC ####[facility] [address] [place], [place] [address]QjGopal Fisher WBC 10.9 103/ul Normal 4.0-11.0 [facility] Comment on above: Performed By: #### C BC ####[facility] [address] [place], [place] [address]Bq. Keturah Fisher CT ABD/PELV W CONon 08-14-19 [...] HEBERT MCPHERSON Date: 2021-08-13 17:14 Normal [facility] ER URINE PROFILEon 2 Bilirubin Ql (U) Negative Normal NEGATIVE [facility] Comment on above: Performed By: #### C BC #### [facility] [address] [place] [address] Dr. Keturah Fisher Clarity (U) CLEAR Normal CLEAR [facility] Comment on above: Performed By: #### C BC #### [facility] [address] [place] [address] Dr. Keturah Fisher Color (U) LT. YELLOW Normal YELLOW [facility] Comment on above: Performed By: #### C BC #### [facility] [address] [place] [address] Dr. Keturah PATIÑOGarfield A micrscopic examination will be performed if indicated. Normal [facility] Comment on above: Performed By: #### C BC #### [facility] [address] [place] [address] Dr. Keturah Fisher Glucose Ql (U) Negative Normal NEGATIVE [facility] Comment on above: Performed By: #### C BC #### [facility] [address] [place] [address] Dr. Keturah Fisher Hemoglobin Ql (U) Negative Normal NEGATIVE [facility] Comment on above: Performed By: #### C BC #### [facility] [address] [place] [address] Dr. Keturah Fisher Ketones Ql (U) Negative Normal NEGATIVE [facility] Comment on above: Performed By: #### C BC #### [facility] [address] [place] [address] Dr. Keturah Fisher LEUKOCYTES Negative Normal NEGATIVE [facility] Comment on above: Performed By: #### C BC #### [facility] [address] [place] [address] Dr. Keturah Fisher Nitrite Ql (U) Negative Normal NEGATIVE [facility] Comment on above: Performed By: #### C BC #### [facility] [address] [place] [address] Dr. Keturah Fisher pH (U) 5.5 [pH] Normal 5-9 [facility] Comment on above: Performed By: #### C BC #### [facility] [address] [place] [address] Dr. Keturah Fisher SPEC GRAVITY 1.010 Normal 1.005-<=1.[address] [place] [address] Comment on above: Performed By: #### C BC #### [facility] [address] [place] [address] Dr. Keturah Fisher UA PROTEIN Negative Normal NEGATIVE/ TRACE [facility] Comment on above: Performed By: #### C BC #### [facility] [address] [place] [address] Dr. Keturah Fisher UR MICRO IND NOT INDICATED Normal [facility] Comment on above: Performed By: #### C BC #### [facility] [address] [place] [address] Dr. Keturah Fisher Urobilinogen Qn (U) 0.2 {Marizol'U}/dL Normal 0.2 - 1. 0 [facility] Comment on above: Performed By: #### C BC #### [facility] [address] [place] [address] Dr. Keturah Fisher LIPASEon 08-13-2021 Lipase [Catalytic activity/Vol] 217.0 U/L Normal 73.0-393.0 [facility] Comment on above: Performed By: #### C BC #### [facility] [address] [place] [address] Dr. Keturah Fisher PROF 14(COMP METB)on 022 Albumin [Mass/Vol] 3.9 g/dL Normal 3.4-5.0 [facility] Comment on above: Performed By: #### C BC #### [facility] [address] [place] [address] Dr. Keturah Fisher Albumin/Globulin [Mass ratio] 1.1 {ratio} Normal [facility] Comment on above: Performed By: #### C BC #### [facility] [address] [place] [address] Dr. Keturah Fisher ALP [Catalytic activity/Vol] 140 U/L Critically high 46-116 [facility] Comment on above: Performed By: #### C BC #### [facility] [address] [place] [address] Dr. Keturah Fisher ALT [Catalytic activity/Vol] 24 U/L Normal 14-59 [facility] Comment on above: Performed By: #### C BC #### [facility] [address] [place] [address] Dr. Keturah Fisher Anion gap [Moles/Vol] 11.7 mmol/L Normal [facility] Comment on above: Performed By: #### C BC #### [facility] [address] [place] [address] Dr. Keturah Fisher AST [Catalytic activity/Vol] 19 U/L Normal 15-37 [facility] Comment on above: Performed By: #### C BC #### [facility] [address] [place] [address] Dr. Keturah Fisher Bilirubin [Mass/Vol] 0.2 mg/dL Normal 0.2-1.0 [facility] Comment on above: Performed By: #### C BC #### [facility] [address] [place] [address] Dr. Keturah Fisher Calcium [Mass/Vol] 9.9 mg/dL Normal 8.5-10.1 [facility] Comment on above: Performed By: #### C BC #### [facility] [address] [place] [address] Dr. Keturah Fisher Chloride [Moles/Vol] 105 mmol/L Normal 98-107 [facility] Comment on above: Performed By: #### C BC #### [facility] [address] [address] [address] Keturah Fisher CO2 [Moles/Vol] 29.1 mmol/L Normal 21.0-32.0 [facility] Comment on above: Performed By: #### C BC #### [facility] [address] [address] [address] Keturah Fisher Creatinine [Mass/Vol] 0.81 mg/dL Normal 0.55-1.02 [facility] Comment on above: Performed By: #### C BC #### [facility] [address] [place] [address] Dr. Keturah Fisher EGFR-AF CITIZEN [place] >60 Normal >=60 [facility] Comment on above: Performed By: #### C BC #### [facility] [address] [place] [address] Dr. Keturah Fisher EGFR-NON AF CITIZEN OF [place] >60 Normal >=60 [facility] Comment on above: Performed By: #### C BC #### [facility] [address] [place] [address] Dr. Keturah Fisher Globulin (S) [Mass/Vol] 3.4 g/dL Normal [facility] Comment on above: Performed By: #### C BC #### [facility] [address] [place] [address] Dr. Keturah Fisher Glucose [Mass/Vol] 87 mg/dL Normal 74-106 [facility] Comment on above: Performed By: #### C BC #### [facility] [address] [place] [address] Dr. Keturah Fisher Potassium [Moles/Vol] 3.8 mmol/L Normal 3.5-5.1 [facility] Comment on above: Performed By: #### C BC #### [facility] [address] [place] [address] Dr. Keturah Fisher Protein [Mass/Vol] 7.3 g/dL Normal 6.4-8.2 [facility] Comment on above: Performed By: #### C BC #### [facility] [address] [place], [place] [address] Dr. Keturah Fisher Sodium [Moles/Vol] 142 mmol/L Normal 136-145 [facility] Comment on above: Performed By: #### C BC #### [facility] [address], [place] [address] Dr. Keturah Fisher Urea nitrogen [Mass/Vol] 11.0 mg/dL Normal 7.0-18.0 [facility] Comment on above: Performed By: #### C BC #### [facility] [address], [place] [address] Dr. Keturah Fisher Urea nitrogen/Creatinine [Mass ratio] 13.6 mg/mg Normal [facility] Comment on above: Performed By: #### C BC #### [facility] [address], [place] [address] Dr. Keturah Fisher Albumin [Mass/volume] in Ser um or PlasmaOrdered By: Keaton Barnard on 08-11-2021 Albumin [Mass/Vol] 3.4 g/dL 3.2-5.5 [facility] Basophils Auto (Bld) [#/Vol] Ordered By: Keaton Barnard on 08-11-2021 Basophils (Bld) [#/Vol] 0.1 10*3/uL 0.0-0.[address] [facility] Basophils/100 WBC Auto (Bld) Ordered By: Keaton Barnard on 08-11-2021 Basophils/100 WBC (Bld) 0.9 % . [facility] Bilirubin Test strip Ql (U)O rdered By: Keaton Barnard on 08-11-2021 Bilirubin Ql (U) Negative Negative [facility] Blood hemoglobin measurement (mass/volume)Ordered By: Keaton Barnard on 08-11-2021 Hemoglobin (Bld) [Mass/Vol] 14.1 g/dL 11.8-15.[address] [facility] Blood leukocytes automated c ount (number/volume)Ordered By: Keaton Barnard on 08-11-2021 WBC (Bld) [#/Vol] 9.7 10*3/uL 4.5-11.0 [facility] Color Auto (U)Ordered By: Herminia Barnard on 08-11-2021 Color (U) Yellow Yellow [facility] Creatinine and Glomerular fi ltration rate.predicted panel (S/P/Bld)Ordered By: Keaton Barnard on 08-11-2021 Creatinine [Mass/Vol] 0.95 mg/dL 0.44-1.03 [facility] Direct bilirubin measurement Ordered By: Keaton Barnard on 08-11-2021 Bilirubin.direct [Mass/Vol] mg/dL 0.0-0.[address] [facility] Eosinophils Auto (Bld) [#/Vo l]Ordered By: Keaton Barnard on 08-11-2021 Eosinophils (Bld) [#/Vol] 0.1 10*3/uL 0.0-0.[address] [facility] Eosinophils/100 WBC Auto (Bl d)Ordered By: Keaton Barnard on 08-11-2021 Eosinophils/100 WBC (Bld) 1.3 % . [facility] Erythrocyte distribution wid th Auto (RBC) [Ratio]Ordered By: Keaton Barnard on 08-11-2021 Erythrocyte distribution width (RBC) [Ratio] 13.2 % 11.9-15.[address] [facility] Estimated glomerular filtrat ion rate (GFR) non- AmericanOrdered By: Keaton Barnard on 08-11-2021 GFR/1.73 sq M.predicted among non-blacks MDRD (S/P/Bld) [Vol rate/Area] > 60 mL/Min [facility] Globulin Calc (S) [Mass/Vol] Ordered By: Keaton Barnard on 08-11-2021 Globulin (S) [Mass/Vol] 2.6 g/dL [facility] Hematocrit Auto (Bld) [Volum e fraction]Ordered By: Keaton Barnard on 08-11-2021 Hematocrit (Bld) [Volume fraction] 42.1 % 34.0-46.[address] [facility] Ketones Auto test strip (U) [Mass/Vol]Ordered By: Keaton Barnard on 08-11-2021 Ketones (U) [Mass/Vol] Negative Negative [facility] - Chemistry and C hemistry - challengeOrdered By: Keaton Barnard on 08-11-2021 Lipase [Catalytic activity/Vol] 89.0 U/L 22-[address] [facility] Laboratory - CoagulationOrde red By: Keaton Barnard on 08-11-2021 PT Coag (PPP) [Time] 12.5 s 9.0-12.9 [facility] - Hematology and Cell countsOrdered By: Keaton Barnard on 08-11-2021 Nucleated RBC/100 WBC (Bld) [Ratio] 0.1 % 0-0.[address] [facility] Lymphocytes Auto (Bld) [#/Vo l]Ordered By: Keaton Barnard on 08-11-2021 Lymphocytes (Bld) [#/Vol] 2.5 10*3/uL 1.00-4.[address] [facility] Lymphocytes/100 WBC Auto (Bl d)Ordered By: Keaton Barnard on 08-11-2021 Lymphocytes/100 WBC (Bld) 25.8 % . [facility] MCH Auto (RBC) [Entitic mass ]Ordered By: Keaton Barnard on 08-11-2021 MCH (RBC) [Entitic mass] 32.4 pg 24.7-34.[address] [facility] MCHC Auto (RBC) [Mass/Vol]Or dered By: Keaton Barnard on 08-11-2021 MCHC (RBC) [Mass/Vol] 33.4 g/dL 32.0-35.0 [facility] MCV Auto (RBC) [Entitic vol] Ordered By: Keaton Barnard on 08-11-2021 MCV (RBC) [Entitic vol] 96.8 fL 80-[address] [facility] Monocytes Auto (Bld) [#/Vol] Ordered By: Keaton Barnard on 08-11-2021 Monocytes (Bld) [#/Vol] 0.8 10*3/uL 0.0-0.[address] [facility] Monocytes/100 WBC Auto (Bld) Ordered By: Keaton Barnard on 08-11-2021 Monocytes/100 WBC (Bld) 8.7 % . [facility] Neutrophils Auto (Bld) [#/Vo l]Ordered By: Keaton Barnard on 08-11-2021 Neutrophils (Bld) [#/Vol] 6.1 10*3/uL 1.8-7.[address] [facility] Neutrophils/100 WBC Auto (Bl d)Ordered By: Keaton Barnard on 08-11-2021 Neutrophils/100 WBC (Bld) 63.3 % . [facility] Nitrite Test strip Ql (U)Ord ered By: Keaton Barnard on 08-11-2021 Nitrite Ql (U) Negative Negative [facility] No Panel InformationOrdered By: Keaton Barnard on 08-11-2021 Estimated GFR () > 60 mL/Min [facility] Comment on above: GFR estimated refere nce range: According to KDOQI guidelines, <60 ml/min/1.73m2 is sufficient to diagnose a patient with chronic kidney disease. Pharmacy Creatinine Clearance (Chem 62.[address] [facility] Platelet mean volume Auto (B ld) [Entitic vol]Ordered By: Keaton Barnard on 08-11-2021 Platelet mean volume (Bld) [Entitic vol] 8.0 fL 6.3-10.[address] [facility] Platelet poor plasma interna tional normalized ratio (INR) by coagulation assay (relatOrdered By: Keaton Barnard on 08-11-2021 INR Coag (PPP) [Relative time] 1.1 {INR} [facility] Comment on above: INR Therapeutic Rang e [...] 08-11-2021 Platelets (Bld) [#/Vol] 252 10*3/uL 150-[address] [facility] Protein Auto test strip (U) [Mass/Vol]Ordered By: Keaton Barnard on 08-11-2021 Protein (U) [Mass/Vol] Negative Negative Fi [facility] Protein [Mass/volume] in Ser um or PlasmaOrdered By: Keaton Barnard on 08-11-2021 Protein [Mass/Vol] 6.0 g/dL 6.1-7.9 [facility] RBC Auto (Bld) [#/Vol]Ordere d By: Keaton Barnard on 08-11-2021 RBC (Bld) [#/Vol] 4.35 10*6/uL 3.60-5.00 [facility] Serum or plasma alanine hughes otransferase measurement without P-5'-P (enzymatic activiOrdered By: Keaton Barnard on 08-11-2021 ALT No additional P-5'-P [Catalytic activity/Vol] 12 U/L 10-[address] [facility] Serum or plasma albumin/glob ulin mass ratioOrdered By: Keaton Barnard on 08-11-2021 Albumin/Globulin [Mass ratio] 1.3 {ratio} [facility] Serum or plasma alkaline jaqueline sphatase measurement (enzymatic activity/volume)Ordered By: Keaton Barnard on 08-11-2021 ALP [Catalytic activity/Vol] 98 U/L 32-[address] [facility] Serum or plasma aspartate am inotransferase measurement (enzymatic activity/volume)Ordered By: Keaton Barnard on 08-11-2021 AST [Catalytic activity/Vol] 17 U/L 10-[address] [facility] Serum or plasma calcium priscilla urement (mass/volume)Ordered By: Keaton Barnard on 08-11-2021 Calcium [Mass/Vol] 9.3 mg/dL 8.2-10.2 [facility] Serum or plasma chloride daron surement (moles/volume)Ordered By: Keaton Barnard on 08-11-2021 Chloride [Moles/Vol] 104 mmol/L 95-114 [facility] Serum or plasma glucose priscilla urement (mass/volume)Ordered By: Keaton Barnard on 08-11-2021 Glucose [Mass/Vol] 95 mg/dL 70-100 [facility] Comment on above: ADA recommended refe rence range Random Glucose Reference Range is dependent on time and content of last meal. Glucose of more than 200 mg/dL in a nonstressed, ambulatory subject supports the diagnosis of Diabetes Mellitus. Serum or plasma non-glucuron idated bilirubin measurement (mass/volume)Ordered By: Keaton Barnard on 08-11-2021 Bilirubin.indirect [Mass/Vol] TNP [facility] Comment on above: Test not performed Serum or plasma potassium me asurement (moles/volume)Ordered By: Keaton Barnard on 08-11-2021 Potassium [Moles/Vol] 3.8 mmol/L 3.5-5.1 [facility] Serum or plasma sodium measu rement (moles/volume)Ordered By: Keaton Barnard on 08-11-2021 Sodium [Moles/Vol] 138 mmol/L 136-146 [facility] Serum or plasma total biliru bin measurement (mass/volume)Ordered By: Keaton Barnard on 08-11-2021 Bilirubin [Mass/Vol] 0.3 mg/dL 0.3-1.2 [facility] Serum or plasma total carbon dioxide measurement (moles/volume)Ordered By: Keaton Barnard on 08-11-2021 CO2 [Moles/Vol] 24.8 mmol/L 22.0-30.0 [facility] Serum or plasma urea nitroge n measurement (mass/volume)Ordered By: Keaton Barnard on 08-11-2021 Urea nitrogen [Mass/Vol] 10 mg/dL 9-[address] [facility] Specific gravity Auto test s trip (U) [Rel density]Ordered By: Keaton Barnard on 08-11-2021 Specific gravity (U) [Rel density] 1.028 1.001-1.[address] [facility] Troponin I.cardiac [Mass/vol ume] in Serum or Plasma by High sensitivity methodOrdered By: Keaton Barnard on 08-11-2021 Troponin I.cardiac High sensitivity method [Mass/Vol] 3 pg/mL 0-[address] [facility] Urine clarity by refractomet ry automatedOrdered By: Keaton Barnard on 08-11-2021 Clarity Refractometry automated (U) Clear Clear [facility] Urine glucose measurement by automated test strip (mass/volume)Ordered By: Keaton Barnard on 08-11-2021 Glucose Auto test strip (U) [Mass/Vol] Normal mg/dL Normal [facility] Urine hemoglobin detection b y automated test stripOrdered By: Keaton Barnard on 08-11-2021 Hemoglobin Auto test strip Ql (U) Negative Negative [facility] Urine leukocyte esterase det ection by automated test stripOrdered By: Keaton Barnard on 08-11-2021 Leukocyte esterase Auto test strip Ql (U) Negative Negative [facility] Urobilinogen Auto test strip (U) [Mass/Vol]Ordered By: Keaton Barnard on 08-11-2021 Urobilinogen (U) [Mass/Vol] Normal mg/dL Normal [facility] pH Auto test strip (U)Ordere d By: Keaton Barnard on 08-11-2021 pH (U) 5.0 [pH] 5.0-9.[address] [facility] AMYLASEon 07-31-2021 Amylase [Catalytic activity/Vol] 158 U/L Critically high 25-115 [facility] Comment on above: Performed By: #### L IPA, CMP, CRP, NAT #### [facility] [address], [place] [address] Dr. Keturah Fisher CBC AUTO DIFFon 07-31-2021 BASO # 0.1 103/ul Normal 0.0-0.1 [facility] Comment on above: Performed By: #### C BC ####[facility] [address] [place] [address]Dr. Keturah Fisher Basophils/100 WBC (Bld) 0.7 % Normal 0.2-2.0 [facility] Comment on above: Performed By: #### C BC ####[facility] [address] [place] [address]Dr. Keturah Fisher EO # 0.1 103/ul Normal 0.0-0.7 [facility] Comment on above: Performed By: #### C BC ####[facility] [address] [place] [address]Dr. Keturah Fisher Eosinophils/100 WBC (Bld) 0.9 % Normal 0.9-7.0 [facility] Comment on above: Performed By: #### C BC ####[facility] [address] [place] [address]DrGopal Fisher Erythrocyte distribution width (RBC) [Ratio] 12.7 % Normal 11.0-15.0 [facility] Comment on above: Performed By: #### C BC ####[facility] [address] [place] [address]Dr. Keturah Fisher Hematocrit (Bld) [Volume fraction] 43.2 % Normal 36.0-48.0 [facility] Comment on above: Performed By: #### C BC ####[facility] [address] [place] [address]DrGopal Keturah Fisher Hemoglobin (Bld) [Mass/Vol] 14.5 g/dL Normal 12.0-16.0 [facility] Comment on above: Performed By: #### C BC ####[facility] [address] [place] [address]DrGopal Keturah Fisher IG # 0.04 10e3/ul Critically high 0.00-0.03 [facility] Comment on above: Performed By: #### C BC ####[facility] [address] [place], [place] [address]DrGopal Elisaeli Fisher IG % 0.4 % Normal 0.0-0.5 [facility] Comment on above: Performed By: #### C BC ####[facility] [address] [place], [place] [address]DrGopal Elisaeli Fisher LYMPH # 2.8 103/ul Normal 1.2-3.8 [facility] Comment on above: Performed By: #### C BC ####[facility] [address] [place], [place] [address]DrGopal Elisaeli Fisher Lymphocytes/100 WBC (Bld) 24.9 % Normal 20.5-60.0 [facility] Comment on above: Performed By: #### C BC ####[facility] [address] [place], [place] [address]DrGopal Elisaeli Fisher MANUAL DIFF REQ NO Normal [facility] Comment on above: Performed By: #### C BC ####[facility] [address] [place], [place] [address]DrGopal Fisher MCH (RBC) [Entitic mass] 32.7 pg Normal 26.7-34.0 [facility] Comment on above: Performed By: #### C BC ####[facility] [address] [place], [place] [address]DrGopal Fisher MCHC (RBC) [Mass/Vol] 33.6 g/dL Normal 29.9-35.2 [facility] Comment on above: Performed By: #### C BC ####[facility] [address] [place] [address]DrGopal Fisher MCV (RBC) [Entitic vol] 97.5 fL Normal 81.0-99.0 [facility] Comment on above: Performed By: #### C BC ####[facility] [address] [place], [place] [address]DrGopal Fisher MONO # 0.9 103/ul Critically high 0.3-0.8 [facility] Comment on above: Performed By: #### C BC ####[facility] [address] [place], [place] [address]DrGopal Fisher Monocytes/100 WBC (Bld) 8.1 % Normal 1.7-12.0 [facility] Comment on above: Performed By: #### C BC ####[facility] [address] [place], [place] [address]DrGopal Fisher NEUT # 7.3 103/ul Critically high 1.4-6.5 [facility] Comment on above: Performed By: #### C BC ####[facility] [address] [place], [place] [address]DrGopal Fisher Neutrophils/100 WBC (Bld) 65.0 % Normal 43.0-75.0 [facility] Comment on above: Performed By: #### C BC ####[facility] [address] [place], [place] [address]DrGopal Fisher Platelet mean volume (Bld) [Entitic vol] 10.0 fL Normal 9.5-13.5 [facility] Comment on above: Performed By: #### C BC ####[facility] [address] [place], [place] [address]DrGopal Fisher PLT 245 103/ul Normal 150-450 [facility] Comment on above: Performed By: #### C BC ####[facility] [address] [place], [place] [address]Dr. Keturah Fisher RBC 4.43 106/ul Normal 4.20-5.40 [facility] Comment on above: Performed By: #### C BC ####[facility] [address] [place], [place] [address]LtDr. Keturah Fisher WBC 11.2 103/ul Critically high 4.0-11.0 [facility] Comment on above: Performed By: #### C BC ####[facility] [address] [place], [place] [address]QiDr. Keturah Fisher LIPASEon 07-31-2021 Lipase [Catalytic activity/Vol] 439.0 U/L Critically high 73.0-393.0 [facility] Comment on above: Performed By: #### L IPA, CMP, CRP, NAT #### [facility] [address] [place] [address] [address] Keturah Fisher PROF 14(COMP METB)on Albumin [Mass/Vol] 3.6 g/dL Normal 3.4-5.0 [facility] Comment on above: Performed By: #### L IPA, CMP, CRP, NAT #### [facility] [address] [place] [address] [address] Keturah Fisher Albumin/Globulin [Mass ratio] 1.1 {ratio} Normal [facility] Comment on above: Performed By: #### L IPA, CMP, CRP, NAT #### [facility] [address] [place] [address] [address] Keturah Fisher ALP [Catalytic activity/Vol] 119 U/L Critically high 46-116 [facility] Comment on above: Performed By: #### L IPA, CMP, CRP, NAT #### [facility] [address] [place] [address] [address] Keturah Fisher ALT [Catalytic activity/Vol] 20 U/L Normal 14-59 [facility] Comment on above: Performed By: #### L IPA, CMP, CRP, NAT #### [facility] [address] [place] [address] [address] Keturah Fisher Anion gap [Moles/Vol] 13.4 mmol/L Normal [facility] Comment on above: Performed By: #### L IPA, CMP, CRP, NAT #### [facility] [address] [place] [address] [address] Keturah Fisher AST [Catalytic activity/Vol] 16 U/L Normal 15-37 [facility] Comment on above: Performed By: #### L IPA, CMP, CRP, NAT #### [facility] [address] [place] [address] [address] Keturah Fisher Bilirubin [Mass/Vol] 0.1 mg/dL Critically low 0.2-1.0 [facility] Comment on above: Performed By: #### L IPA, CMP, CRP, NAT #### [facility] [address] [place] [address] [address] Keturah Fisher Calcium [Mass/Vol] 8.9 mg/dL Normal 8.5-10.1 [facility] Comment on above: Performed By: #### L IPA, CMP, CRP, NAT #### [facility] [address] [place] [address] [address] Keturah Fisher Chloride [Moles/Vol] 106 mmol/L Normal 98-107 [facility] Comment on above: Performed By: #### L IPA, CMP, CRP, NAT #### [facility] [address] [place] [address] Dr. Keturah Fisher CO2 [Moles/Vol] 25.4 mmol/L Normal 21.0-32.0 [facility] Comment on above: Performed By: #### L IPA, CMP, CRP, NAT #### [facility] [address] [place] [address] [address] Keturah Fisher Creatinine [Mass/Vol] 0.73 mg/dL Normal 0.55-1.02 [facility] Comment on above: Performed By: #### L IPA, CMP, CRP, NAT #### [facility] [address] [place] [address] Dr. Keturah Fisher EGFR-AF CITIZEN [place] >60 Normal >=60 [facility] Comment on above: Performed By: #### L IPA, CMP, CRP, NAT #### [facility] [address] [place] [address] Dr. Keturah Fisher EGFR-NON AF CITIZEN OF [place] >60 Normal >=60 [facility] Comment on above: Performed By: #### L IPA, CMP, CRP, NAT #### [facility] [address] [place] [address] [address] Keturah Fisher Globulin (S) [Mass/Vol] 3.2 g/dL Normal [facility] Comment on above: Performed By: #### L IPA, CMP, CRP, NAT #### [facility] [address] [place] [address] [address] Keturah Fisher Glucose [Mass/Vol] 105 mg/dL Normal 74-106 [facility] Comment on above: Performed By: #### L IPA, CMP, CRP, NAT #### [facility] [address] [place] [address] Dr. Keturah Fisher Potassium [Moles/Vol] 3.8 mmol/L Normal 3.5-5.1 [facility] Comment on above: Performed By: #### L IPA, CMP, CRP, NAT #### [facility] [address] [place] [address] Dr. Keturah Fisher Protein [Mass/Vol] 6.8 g/dL Normal 6.4-8.2 [facility] Comment on above: Performed By: #### L IPA, CMP, CRP, NAT #### [facility] [address] [place] [address] Dr. Keturah Fisher Sodium [Moles/Vol] 141 mmol/L Normal 136-145 [facility] Comment on above: Performed By: #### L IPA, CMP, CRP, NAT #### [facility] [address] [place] [address] Dr. Keturah Fisher Urea nitrogen [Mass/Vol] 12.0 mg/dL Normal 7.0-18.0 [facility] Comment on above: Performed By: #### L IPA, CMP, CRP, NAT #### [facility] [address] [place] [address] [address] Keturah Fisher Urea nitrogen/Creatinine [Mass ratio] 16.4 mg/mg Normal [facility] Comment on above: Performed By: #### L IPA, CMP, CRP, NAT #### [facility] [address] [place] [address] [address] Keturah Fisher TROPONIN, HIGH SENSITIVITYon 07-31-2021 HSTROP 4.2 pg/mL Normal 4.0-51.3 [facility] Comment on above: Result Comment: CUT- OFF POINTS HAVE BEEN ESTABLISHED BASED ON THE FOURTH UNIVERSAL DEFINITIONS OF MYOCARDIAL INFARCTION. THE UPPER REFERENCE LIMIT (URL) OF TROPONIN, DEFINED THE 99TH PERCENTILE OF cTnI DISTRIBUTION IN A REFERENCE POPULATION, HAS BEEN CONFIRMED THE DECISION THRESHOLD FOR NH DIAGNOSIS. Performed By: #### L IPA, CMP, CRP, NAT #### [facility] [address] [place] [address] [address] Keturah Fisher AMYLASEon 07-19-2021 Amylase [Catalytic activity/Vol] 198 U/L Critically high 25-115 [facility] Comment on above: Performed By: #### A MY, LIPA, CMP ####[facility] [address] [place] [address]DrGopal Fisher CBC AUTO DIFFon 07-19-2021 BASO # 0.1 103/ul Normal 0.0-0.1 [facility] Comment on above: Performed By: #### C BC ####[facility] [address] [place] [address]DrGpoal Fisher Basophils/100 WBC (Bld) 0.7 % Normal 0.2-2.0 [facility] Comment on above: Performed By: #### C BC ####[facility] [address] [place] [address]DrGopal Fisher EO # 0.1 103/ul Normal 0.0-0.7 [facility] Comment on above: Performed By: #### C BC ####[facility] [address] [place] [address]DrGopal Fisher Eosinophils/100 WBC (Bld) 1.0 % Normal 0.9-7.0 [facility] Comment on above: Performed By: #### C BC ####[facility] [address] [place] [address]DrGopal Fisher Erythrocyte distribution width (RBC) [Ratio] 12.5 % Normal 11.0-15.0 [facility] Comment on above: Performed By: #### C BC ####[facility] [address] [place] [address]Dr. Keturah Fisher Hematocrit (Bld) [Volume fraction] 42.4 % Normal 36.0-48.0 [facility] Comment on above: Performed By: #### C BC ####[facility] [address] [place], [place] [address]Dr. Keturah Fisher Hemoglobin (Bld) [Mass/Vol] 14.2 g/dL Normal 12.0-16.0 [facility] Comment on above: Performed By: #### C BC ####[facility] [address] [place], [place] [address]Dr. Keturah Fisher IG # 0.03 10e3/ul Normal 0.00-0.03 [facility] Comment on above: Performed By: #### C BC ####[facility] [address] [place], [place] [address]Dr. Keturah Fisher IG % 0.3 % Normal 0.0-0.5 [facility] Comment on above: Performed By: #### C BC ####[facility] [address] [place], [place] [address]Dr. Keturah Fisher LYMPH # 3.0 103/ul Normal 1.2-3.8 [facility] Comment on above: Performed By: #### C BC ####[facility] [address] [place], [place] [address]Dr. Keturah Fisher Lymphocytes/100 WBC (Bld) 29.5 % Normal 20.5-60.0 [facility] Comment on above: Performed By: #### C BC ####[facility] [address] [place], [place] [address]Dr. Keturah Phillip MANUAL DIFF REQ NO Normal [facility] Comment on above: Performed By: #### C BC ####[facility] [address] [place], [place] [address]Dr. Keturah Phillip MCH (RBC) [Entitic mass] 32.8 pg Normal 26.7-34.0 [facility] Comment on above: Performed By: #### C BC ####[facility] [address] [place] [address]DrGopal Fisher MCHC (RBC) [Mass/Vol] 33.5 g/dL Normal 29.9-35.2 [facility] Comment on above: Performed By: #### C BC ####[facility] [address] [place], [place] [address]DrGopal Fisher MCV (RBC) [Entitic vol] 97.9 fL Normal 81.0-99.0 [facility] Comment on above: Performed By: #### C BC ####[facility] Oc[address] [place], [place] [address]DrGopal Fisher MONO # 1.0 103/ul Critically high 0.3-0.8 [facility] Comment on above: Performed By: #### C BC ####[facility] Ghijbaps[address] [place], [place] [address]DrGopal Fisher Monocytes/100 WBC (Bld) 9.3 % Normal 1.7-12.0 [facility] Comment on above: Performed By: #### C BC ####[facility] Pigiaxqntm[address] [place], [place] [address]DrGopal Fisher NEUT # 6.1 103/ul Normal 1.4-6.5 [facility] Comment on above: Performed By: #### C BC ####[facility] Q[address]saqcsgq[address] [place], [place] [address]DrGopal Fisher Neutrophils/100 WBC (Bld) 59.2 % Normal 43.0-75.0 [facility] Comment on above: Performed By: #### C BC ####[facility] Zynmzkayat[address] [place], [place] [address]DrGopal Fisher Platelet mean volume (Bld) [Entitic vol] 9.8 fL Normal 9.5-13.5 [facility] Comment on above: Performed By: #### C BC ####[facility] Wmnococmch[address] [place], [place] [address]Dr. Keturah Fisher PLT 249 103/ul Normal 150-450 [facility] Comment on above: Performed By: #### C BC ####[facility] Vgcs[address]qu[address] [place] [address]Dr. Keturah Fisher RBC 4.33 106/ul Normal 4.20-5.40 [facility] Comment on above: Performed By: #### C BC ####[facility] Gs[address] [place] [address]Dr. Keturah Fisher WBC 10.2 103/ul Normal 4.0-11.0 [facility] Comment on above: Performed By: #### C BC ####[facility] Fvvplnirmm[address] [place] [address]Dr. Keturah Phillip LIPASEon 07-19-2021 Lipase [Catalytic activity/Vol] 554.0 U/L Critically high 73.0-393.0 [facility] Comment on above: Performed By: #### A MY, LIPA, CMP ####[facility] Wbutfvhqwx[address] [place], [place] [address]Dr. Keturah Fisher PROF 14(COMP METB)on 022 Albumin [Mass/Vol] 4.0 g/dL Normal 3.4-5.0 [facility] Comment on above: Performed By: #### A MY, LIPA, CMP ####[facility] Efrozopxzt[address] [place], [place] [address]Dr. Keturah Fisher Albumin/Globulin [Mass ratio] 1.1 {ratio} Normal [facility] Comment on above: Performed By: #### A MY, LIPA, CMP ####[facility] Bom[address]lp[address] [place] [address]Dr. Keturah Fisher ALP [Catalytic activity/Vol] 141 U/L Critically high 46-116 [facility] Comment on above: Performed By: #### A MY, LIPA, CMP ####[facility] [address]msfszgn[address] [place] [address]Dr. Keturah Fisher ALT [Catalytic activity/Vol] 21 U/L Normal 14-59 [facility] Comment on above: Performed By: #### A MY, LIPA, CMP ####[facility] [address]rtfs[address]hl[address] [place] [address]Dr. Keturah Fisher Anion gap [Moles/Vol] 10.3 mmol/L Normal [facility] Comment on above: Performed By: #### A MY, LIPA, CMP ####[facility] Ccrkjj[address]ta[address] [place] [address]Dr. Keturah Fisher AST [Catalytic activity/Vol] 22 U/L Normal 15-37 [facility] Comment on above: Performed By: #### A MY, LIPA, CMP ####[facility] Mhhgwjjauj[address] [place] [address]Dr. Keturah Fisher Bilirubin [Mass/Vol] 0.3 mg/dL Normal 0.2-1.0 [facility] Comment on above: Performed By: #### A MY, LIPA, CMP ####[facility] Pjuvuwkhur[address] [place], [place] [address]Dr. Keturah Fisher Calcium [Mass/Vol] 9.9 mg/dL Normal 8.5-10.1 [facility] Comment on above: Performed By: #### A MY, LIPA, CMP ####[facility] Gfyepjyncw[address] [place], [place] [address]Dr. Keturah Fisher Chloride [Moles/Vol] 103 mmol/L Normal 98-107 [facility] Comment on above: Performed By: #### A MY, LIPA, CMP ####[facility] Pioikdmvib[address] [place], [place] [address]Dr. Keturah Fisher CO2 [Moles/Vol] 27.6 mmol/L Normal 21.0-32.0 [facility] Comment on above: Performed By: #### A MY, LIPA, CMP ####[facility] Kydxcbwxtb[address] [place], [place] [address]Dr. Keturah Fisher Creatinine [Mass/Vol] 0.93 mg/dL Normal 0.55-1.02 [facility] Comment on above: Performed By: #### A MY, LIPA, CMP ####[facility] Zykyxrdupx[address] [place], [place] [address]Dr. Keturah Fisher EGFR-AF CITIZEN [place] >60 Normal >=60 [facility] Comment on above: Performed By: #### A ROB BERNSTEIN, CMP ####[facility] [address] [place] [address]Dr. Keturah Fisher EGFR-NON AF CITIZEN OF [place] >60 Normal >=60 [facility] Comment on above: Performed By: #### A ROB BERNSTEIN, CMP ####[facility] Frnslxb[address] [place] [address]Dr. Keturah Fisher Globulin (S) [Mass/Vol] 3.5 g/dL Normal [facility] Comment on above: Performed By: #### A ROB BERNSTEIN, CMP ####[facility] [address]iihroey[address] [place], [place] [address]Dr. Keturah Fisher Glucose [Mass/Vol] 99 mg/dL Normal 74-106 [facility] Comment on above: Performed By: #### A ROB BERNSTEIN, CMP ####[facility] Onrppndbzv[address] [place], [place] [address]Dr. Keturah Fisher Potassium [Moles/Vol] 3.9 mmol/L Normal 3.5-5.1 [facility] Comment on above: Performed By: #### A ROB BERNSTEIN, CMP ####[facility] [address]uxf[address] [place], [place] [address]Dr. Keturah Fisher Protein [Mass/Vol] 7.5 g/dL Normal 6.4-8.2 [facility] Comment on above: Performed By: #### A ROB BERNSTEIN, CMP ####[facility] [address]ywicysrum[address] [place] [address]Dr. Keturah Fisher Sodium [Moles/Vol] 137 mmol/L Normal 136-145 [facility] Comment on above: Performed By: #### A ROB BERNSTEIN, CMP ####[facility] X[address] [place] [address]Dr. Keturah Fisher Urea nitrogen [Mass/Vol] 9.0 mg/dL Normal 7.0-18.0 [facility] Comment on above: Performed By: #### A ROB BERNSTEIN, CMP ####[facility] [address] [place], [place] [address]Fs. Keturah Fisher Urea nitrogen/Creatinine [Mass ratio] 9.7 mg/mg Normal [facility] Comment on above: Performed By: #### A ROB BERNSTEIN, CMP ####[facility] [address] [place], [place] [address]Ut. Keturah Fisher XR ABD FLAT UP_PA Jorje [...] LYNNE PERDOMO Date: 2021-07-19 16:57 Normal [facility] COVID Quick Testingon 2021 Result Positive [employer] Other ANES Marcial 11-13-2020 ANES POST HNO ID: [id number] Author: Ion Avila MD Service: Anesthesiology Author [...] 13, 2020 TIME: 12:38 PM PAGER/CONTACT #: [phone] [facility] [place] NURSING PROGon 11-13-2020 NURSING PROG HNO ID: [id number] Author: Viky Nguyen RN Service: Nursing Author [...] None Electronically Signed By: Yaquelin Nguyen RN [facility] NURSING PROG HNO ID: [id number] Author: Landy Smith RN Service: Nursing Author [...] By: Landy Smith RN In Department: GASTROENTEROLOGY [facility] 11-07-2020 CNPN Telephone ([facility]) CHIOMA RAIENY ([id number]) 1970 F Date Time Provider Department 11/07/20 NASREEN GORMAN [facility] During your visit today, we [...] have family/friend present for procedure? transport home:Patient/patient specialty sales representative was told that if they do [...] Any barriers to Patient learning: Patient/Patient Educational Specialist responded appropriately on phone. Type of instruction [...] Fully Assessed Reason for Visit: Appointment Confirmation [[id number]] Prescriptions as of 11/07/2020 - promethazine HCl [...] Status:Closed by NASREEN GORMAN on 11/07/20 Normal [facility] CT ABDOMEN PELVIS W IV CONTR [place] [...] Jhoan Beatty MD 03/28/20 Final result Normal [facility] Amylaseon 03-26-2020 Amylase [Catalytic activity/Vol] 185 U/L High 28-100 [facility] Comment on above: Performed By: #### R EJEC, NAT, LIP, CMPX #### [facility] [address] [place] [address] [employer]ush Decorator: Ion Jasso MD Amylase [Catalytic activity/Vol] 185 U/L High 28 - 100 U/L [place] CBC Auto Differentialon 03-09 Basophils (Bld) [#/Vol] 0.06 10*3/uL [place] Basophils/100 WBC (Bld) 1 % 0 - 2 % [place] Differential Type NOT REPORTED [place] Eosinophils (Bld) [#/Vol] 0.12 10*3/uL [place] Eosinophils/100 WBC (Bld) 1 % 1 - 4 % [place] Erythrocyte distribution width (RBC) [Ratio] 12.4 % 11.8 - 14.4 % [place] Hematocrit (Bld) [Volume fraction] 40.6 % 36.3 - 47.1 % [place] Hemoglobin (Bld) [Mass/Vol] 13.7 g/dL 11.9 - 15.1 g/dL [place] Immature granulocytes (Bld) [#/Vol] 0 % 0 [place] Immature granulocytes (Bld) [#/Vol] 10*3/uL [place] Lymphocytes (Bld) [#/Vol] 2.62 10*3/uL [place] Lymphocytes/100 WBC (Bld) 27 % 24 - 43 % [place] MCH (RBC) [Entitic mass] 33.4 pg 25.2 - 33.5 pg [place] MCHC (RBC) [Mass/Vol] 33.7 g/dL 28.4 - 34.8 g/dL [place] MCV (RBC) [Entitic vol] 99.0 fL 82.6 - 102.9 fL [place] Monocytes (Bld) [#/Vol] 0.78 10*3/uL [place] Monocytes/100 WBC (Bld) 8 % 3 - 12 % [place] Platelet mean volume (Bld) [Entitic vol] 9.4 fL 8.1 - 13.5 fL [place] Platelets (Bld) [#/Vol] 235 10*3/uL [place] Platelets (Bld) [#/Vol] NOT REPORTED [place] RBC (Bld) [#/Vol] 4.10 10*6/uL 3.95 - 5.1 1 m/uL [place] RBC morphology finding Nom (Bld) NOT REPORTED [place] Segmented neutrophils/100 WBC (Bld) 63 % 36 - 65 % [place] Segs Absolute 5.96 [place] WBC (Bld) [#/Vol] 9.6 10*3/uL [place] WBC (Bld) [#/Vol] 0.0 10*3/uL 0.0 per 10 0 WBC [place] WBC Morphology NOT REPORTED [place] CBC with Diffon 03-26-2020 Abs. Basophil 0.06 k/uL Normal 0.00-0.20 [facility] Comment on above: Performed By: #### C DP, LIP #### [facility] [address] [place] [address] [employer] Decorator: Zafar Castillo MD Abs.Imm.Granulocyte <0.03 Normal 0.00-0.30 [facility] Comment on above: Performed By: #### C DP, LIP #### [facility] [address] [place], [place] [address] [employer] Br[employer] Decorator: Zafar Castillo MD Abs.Neutrophil (Seg) 5.96 k/uL Normal 1.50-8.10 [facility] Comment on above: Performed By: #### C DP, LIP #### [address] [place], [place] [id number] [employer] Decorator: Zafar Castillo MD Basophils/100 WBC (Bld) 1 % Normal 0-2 [facility] Comment on above: Performed By: #### C DP, LIP #### [address] [place], [facility]83 [employer] Decorator: Zafar Castillo MD Eosinophils (Bld) [#/Vol] 0.12 10*3/uL Normal 0.00-0.44 [facility] Comment on above: Performed By: #### C DP, LIP #### [address] [place], [facility]83 [employer] Dec[employer]ator: Zafar Castillo MD Eosinophils/100 WBC (Bld) 1 % Normal 1-4 [facility] Comment on above: Performed By: #### C DP, LIP #### [address] [place], [facility]83 [employer] Decorator: Zafar Castillo MD Erythrocyte distribution width (RBC) [Ratio] 12.4 % Normal 11.8-14.4 [facility] Comment on above: Performed By: #### C DP, LIP #### [address] [place], [facility]83 [employer] Decorator: Zafar Castillo MD Hematocrit (Bld) [Volume fraction] 40.6 % Normal 36.3-47.1 [facility] Comment on above: Performed By: #### C DP, LIP #### [address] [place], [facility]83 [employer] Decorator: Zafar Castillo MD Hemoglobin (Bld) [Mass/Vol] 13.7 g/dL Normal 11.9-15.1 [facility] Comment on above: Performed By: #### C DP, LIP #### [facility] [address] [place], [place] [address] [employer] Decorator: Zafar Castillo MD Immature granulocytes (Bld) [#/Vol] 0 % Normal 0 [facility] Comment on above: Performed By: #### C DP, LIP #### [facility] [address] [place], [place] [address] [employer] Br[employer] Decorator: Zafar Castillo MD Lymphocytes (Bld) [#/Vol] 2.62 10*3/uL Normal 1.10-3.70 [facility] Comment on above: Performed By: #### C DP, LIP #### [facility] [address] [place] [address] [employer] Decorator: Zafar Castillo MD Lymphocytes/100 WBC (Bld) 27 % Normal 24-43 [facility] Comment on above: Performed By: #### C DP, LIP #### [facility] [address] [place], [facility]83 [employer] Decorator: Zafar Castillo MD MCH (RBC) [Entitic mass] 33.4 pg Normal 25.2-33.5 [facility] Comment on above: Performed By: #### C DP, LIP #### [address] [place], [place] [address] [employer] Brush Decorator: Zafar Castillo MD MCHC (RBC) [Mass/Vol] 33.7 g/dL Normal 28.4-34.8 [facility] Comment on above: Performed By: #### C DP, LIP #### [facility] [address] [place], [facility]83 [employer] Decorator: Zafar Castillo MD MCV (RBC) [Entitic vol] 99.0 fL Normal 82.6-102.9 [facility] Comment on above: Performed By: #### C DP, LIP #### [facility] [address] [place], [place] 446[address]83 [employer] Decorator: Zafar Castillo MD Monocytes (Bld) [#/Vol] 0.78 10*3/uL Normal 0.10-1.20 [facility] Comment on above: Performed By: #### C DP, LIP #### [facility] [address] [place], [place] [id number] [employer] Decorator: Zafar Castillo MD Monocytes/100 WBC (Bld) 8 % Normal 3-12 [facility] Comment on above: Performed By: #### C DP, LIP #### [facility] [address] [place], [facility]83 [employer] Decorator: Zafar Castillo MD Neutrophil (Seg) 63 % Normal 36-65 [facility] Comment on above: Performed By: #### C DP, LIP #### [facility] [address] [place], [place] [address]36383 [employer] Decorator: Zfaar Castillo MD NRBC Automated 0.0 per 100 WBC Normal 0.0 [facility] Comment on above: Performed By: #### C DP, LIP #### [facility] [address] [place], [place] [id number] [employer] Decorator: Zafar Castillo MD Platelet mean volume (Bld) [Entitic vol] 9.4 fL Normal 8.1-13.5 [facility] Comment on above: Performed By: #### C DP, LIP #### [facility] [address] [place] [address] [employer] Br[employer] Decorator: Zafar Castillo MD Platelets (Bld) [#/Vol] 235 10*3/uL Normal 138-453 [facility] Comment on above: Performed By: #### C DP, LIP #### [facility] [address] [place], [place] 316[address]83 [employer] Decorator: Zafar Castillo MD RBC (Bld) [#/Vol] 4.10 10*6/uL Normal 3.95-5.11 [facility] Comment on above: Performed By: #### C DP, LIP #### [facility] [address] [place], [place] 914[address]83 [employer] Decorator: Zafar Castillo MD WBC (Bld) [#/Vol] 9.6 10*3/uL Normal 3.5-11.3 [facility] Comment on above: Performed By: #### C DP, LIP #### [facility] [address] [place], [place] [id number] [employer] Decorator: Zafar Castillo MD Auto Diff Performed NOT REPORTED Normal [facility] Comment on above: Performed By: #### C DP, LIP #### [facility] [address] [place] [address] Air Brush Decorator: Zafar Castillo MD Platelets (Bld) [#/Vol] NOT REPORTED Normal [facility] Comment on above: Performed By: #### C DP, LIP #### [facility] [address] [place], [place] [id number] Air Brush Decorator: Zafar Castillo MD RBC morphology finding Nom (Bld) NOT REPORTED Normal [facility] Comment on above: Performed By: #### C DP, LIP #### [facility] [address] [place], [place] 8[address]83 [employer] Br[employer] Decorator: Zafar Castillo MD WBC Morphology NOT REPORTED Normal [facility] Comment on above: Performed By: #### C DP, LIP #### [facility] [address] [place], [place] 3926383 [employer] Br[employer] Decorator: Zafar Castillo MD Comp Metabolic Pr/rfx MGon 0 03-26-2020 (cont.) Normal [facility] Comment on above: Result Comment: Aver age GFR for 50-59 years old: 93 mL/min/1.73sq m Chronic Kidney Disease: <60 mL/min/1.73sq m Kidney failure: <15 mL/min/1.73sq m eGFR calculated using average adult body mass. Additional eGFR calculator available at: http://www.[employer]/multiple_crcl_2012.htm Performed By: #### R EJEC, NAT, LIP, CMPX #### [address] [place], [place] 7559683 [employer] Br[employer] Decorator: Ion Jasso MD Albumin [Mass/Vol] 4.3 g/dL Normal 3.5-5.2 [facility] Comment on above: Performed By: #### R EJEC, NAT, LIP, CMPX #### [address] [place], [place] 1323083 Air Brush Decorator: Ion Jasso MD Albumin/Globulin [Mass ratio] 1.7 {ratio} Normal 1.0-2.5 [facility] Comment on above: Performed By: #### R EJEC, NAT, LIP, CMPX #### [address] [place], [place] [address]206883 Air Brush Decorator: Ion Jasso MD Alkaline Phos 117 U/L High 35-104 [facility] Comment on above: Performed By: #### R EJEC, NAT, LIP, CMPX #### [address] [place] [address] Air Brush Decorator: Ion Jasso MD ALT [Catalytic activity/Vol] 11 U/L Normal 5-33 [facility] Comment on above: Performed By: #### R EJEC, NAT, LIP, CMPX #### [address] [place], [place] 069[address]83 Air Brush Decorator: Ion Jasso MD Anion gap [Moles/Vol] 9 mmol/L Normal 9-17 [facility] Comment on above: Performed By: #### R EJEC, NAT, LIP, CMPX #### [facility] [address] [place] [address] Dr[place], [place] [id number] Air Br[employer] Decorator: Ion Jasso MD AST [Catalytic activity/Vol] 18 U/L Normal <32 [facility] Comment on above: Performed By: #### R EJEC, NAT, LIP, CMPX #### [facility] [address] [place], [place] [id number] Air Brush Decorator: Ion Jasso MD Bilirubin Ql (U) 0.15 mg/dL Low 0.3-1.2 [facility] Comment on above: Performed By: #### R EJEC, NAT, LIP, CMPX #### [facility] [address] [place] [address] Dr[place], [place] 9061683 Air Br[employer] Decorator: Ion Jasso MD BUN/CRE Ratio 12 Normal 9-20 [facility] Comment on above: Performed By: #### R EJEC, NAT, LIP, CMPX #### [facility] [address] [place] [address] Dr. [place], [place] 6341883 Air Br[employer] Decorator: Ion Jasso MD Calcium [Mass/Vol] 9.7 mg/dL Normal 8.6-10.4 [facility] Comment on above: Performed By: #### R EJEC, NAT, LIP, CMPX #### [facility] [address] [place] [address] Dr[place], [place] [id number] Air Brush Decorator: Ion Jasso MD Chloride [Moles/Vol] 102 mmol/L Normal 98-107 [facility] Comment on above: Performed By: #### R EJEC, NAT, LIP, CMPX #### [facility] [address] [place] [address] Dr. [place], [place] [id number] Air Brush Decorator: Ion Jasso MD CO2 [Moles/Vol] 25 mmol/L Normal 20-31 [facility] Comment on above: Performed By: #### R EJEC, NAT, LIP, CMPX #### [facility] [address] [place] [address] Air Brush Decorator: Ion Jasso MD Creatinine [Mass/Vol] 0.74 mg/dL Normal 0.50-0.90 [facility] Comment on above: Performed By: #### R EJEC, NAT, LIP, CMPX #### [facility] [address] [place] [address] [place] [address] Air Brush Decorator: Ion Jasso MD GFR, Amer >60 Normal >60 [facility] Comment on above: Performed By: #### R EJEC, NAT, LIP, CMPX #### [facility] [address] [place] [address] Dr[place], [place] [id number] Air Brush Decorator: Ion Jasso MD GFR,non Amer >60 Normal >60 [facility] Comment on above: Performed By: #### R EJEC, NAT, LIP, CMPX #### [address] [place], [place] 6208883 Air Brush Decorator: Ion Jasso MD Glucose [Mass/Vol] 94 mg/dL Normal 70-99 [facility] Comment on above: Performed By: #### R ANGELINE, NAT, LIP, CMPX #### [address] [place], [place] 1674983 Air Brush Decorator: Ion Jasso MD Potassium [Moles/Vol] 4.2 mmol/L Normal 3.7-5.3 [facility] Comment on above: Performed By: #### R EJEC, NAT, LIP, CMPX #### [facility] [address] [place] [address] Dr[place], [place] 5254183 Air Brush Decorator: Ion Jasso MD Protein [Mass/Vol] 6.8 g/dL Normal 6.4-8.3 [facility] Comment on above: Performed By: #### R EJEC, NAT, LIP, CMPX #### [address] [place] [address] Air Brush Decorator: Ion Jasso MD Sodium [Moles/Vol] 136 mmol/L Normal 135-144 [facility] Comment on above: Performed By: #### R EJEC, NAT, LIP, CMPX #### [facility] [address] [place] [address] Air Brush Decorator: Ion Jasso MD Staging: Normal [facility] Comment on above: Result Comment: Stag e 1: Some kidney damage normal GFR Stage 2: Mild kidney damage GFR 60-89 Stage 3: Moderate kidney damage GFR 30-59 Stage 4: Severe kidney damage GFR 15-29 Stage 5: Severe kidney damage GFR <15 ESRD - chronic treatment by dialysis or transplant Performed By: #### R EJEC, NAT, LIP, CMPX #### [facility] [address] [place] [address] Air Brush Decorator: Ion Jasso MD Urea nitrogen [Mass/Vol] 9 mg/dL Normal 6-20 [facility] Comment on above: Performed By: #### R EJEC, NAT, LIP, CMPX #### [facility] [address] [place] [address] Air Brush Decorator: Ion Jasso MD Comprehensive Metabolic Pane l w/ Reflex to MGon 03-26-2020 Albumin [Mass/Vol] 4.3 g/dL 3.5 - 5.2 g/dL [place] Albumin/Globulin [Mass ratio] 1.7 {ratio} [place] ALP [Catalytic activity/Vol] 117 U/L High 35 - 104 U/L [place] ALT [Catalytic activity/Vol] 11 U/L 5 - 33 U/L [place] Anion gap [Moles/Vol] 9 mmol/L 9 - 17 mmol/L [place] AST [Catalytic activity/Vol] 18 U/L <32 [place] Bilirubin Ql (U) 0.15 mg/dL Low 0.3 - 1.2 mg/dL [place] Bun/Cre Ratio 12 [place] Calcium [Mass/Vol] 9.7 mg/dL 8.6 - 10. 4 mg/dL [place] Chloride [Moles/Vol] 102 mmol/L 98 - 10 7 mmol/L [place] CO2 [Moles/Vol] 25 mmol/L 20 - 31 mmol/L [place] Creatinine [Mass/Vol] 0.74 mg/dL 0.5 - 0.9 mg/dL [place] GFR >60 >60 mL/min [place] GFR Non- >60 >60 mL/min [place] Glucose [Mass/Vol] 94 mg/dL 70 - 99 mg/dL [place] Potassium [Moles/Vol] 4.2 mmol/L 3.7 - 5.3 mmol/L [place] Protein [Mass/Vol] 6.8 g/dL 6.4 - 8.3 g/dL [place] Sodium [Moles/Vol] 136 mmol/L 135 - 144 mmol/L [place] Urea nitrogen [Mass/Vol] 9 mg/dL 6 - 20 mg/dL [place] Lactic Acidon 03-26-2020 Lactate [Moles/Vol] 1.3 mmol/L Normal 0.5-2.2 [facility] Comment on above: Performed By: #### C DP, LIP #### [facility] [address] [place] [address] Air Brush Decorator: Zafar Castillo MD Lactate [Moles/Vol] 1.3 mmol/L 0.5 - 2. 2 mmol/L [place] Lipaseon 03-26-2020 Lipase [Catalytic activity/Vol] 225 U/L Critically high 13-60 [facility] Comment on above: Performed By: #### R EJEC, NAT, LIP, CMPX #### [facility] [address] [place] [address] Air Brush Decorator: Ion Jasso MD Interpretation and review of laboratory results Abnormal [place] Lipase [Catalytic activity/Vol] 225 U/L Critically high 13 - 60 U/L [place] Metabolic Panelon 03-26-2020 GFR/1.73 sq M predicted among non-blacks MDRD (S/P/Bld) [Vol rate/Area] [place] Comment on above: Average GFR for 50-5 9 years old: 93 mL/min/1.73sq m Chronic Kidney Disease: <60 mL/min/1.73sq m Kidney failure: <15 mL/min/1.73sq m eGFR calculated using average adult body mass. Additional eGFR calculator available at: http://www.[employer]/multiple_crcl_2012.htm Stage 1: Some kidney damage normal GFR Stage 2: Mild kidney damage GFR 60-89 Stage 3: Moderate kidney damage GFR 30-59 Stage 4: Severe kidney damage GFR 15-29 Stage 5: Severe kidney damage GFR <15 ESRD - chronic treatment by dialysis or transplant Otheron 03-26-2020 Interpretation and review of laboratory results Abnormal [place] SPECIMEN REJECTIONon 021 Ordered Test CDP [place], [place] Reason for Rejection Unable to perform testing: Specimen clotted. [place] Specimen source Nom (Unsp spec) .BLOOD [place] - NOT REPORTED [place] Specimen Rejectionon 021 Reason for rejection Unable to perform testing: Specimen clotted. Normal [facility] Comment on above: Performed By: #### R EJEC, NAT, LIP, CMPX #### [facility] [address] [place] [address] [employer] Brush Decorator: Ion Jasso MD Source of sample .BLOOD Normal [facility] Comment on above: Performed By: #### R EJEC, NAT, LIP, CMPX #### [facility] [address] [place] [address] [employer] Brush Decorator: Ion Jasso MD Test ordered CDP [facility] Comment on above: Performed By: #### R EJEC, NAT, LIP, CMPX #### [facility] [address] [place] [address] [employer] Brush Decorator: Ion Jasso MD ----- NOT REPORTED Normal [facility] Comment on above: Performed By: #### R EJEC, NAT, LIP, CMPX #### [facility] [address] [place] [address] [employer] Decorator: Ion Jasso MD Urinalysis, Routineon 2020 Acetoacetic Acid,Ur Negative Normal [facility] Comment on above: Performed By: #### C DP, LIP #### [facility] [address] [place] [address] [employer] Br[employer] Decorator: Zafar Castillo MD Bilirubin, SemiQt,Ur Negative Normal [facility] Comment on above: Performed By: #### C DP, LIP #### [facility] [address] [place] [address] [employer] Brush Decorator: Zafar Castillo MD Color (U) YELLOW Normal [facility] Comment on above: Performed By: #### C DP, LIP #### [facility] [address] [place] [address] [employer] Br[employer] Decorator: Zafar Castillo MD Glucose Ql (U) Negative Normal [facility] Comment on above: Performed By: #### C DP, LIP #### [facility] [address] [place] [address] [employer] Br[employer] Decorator: Zafar Castillo MD Hemoglobin, Ur Negative Normal [facility] Comment on above: Performed By: #### C DP, LIP #### [facility] [address] [place] [address] [employer] Decorator: Zafar Castillo MD Leukocyte esterase Test strip Ql (U) Negative Normal [facility] Comment on above: Performed By: #### C DP, LIP #### [facility] [address] [place] [address] [employer] Br[employer] Decorator: Zafar Castillo MD Nitrite,Ur Negative Normal [facility] Comment on above: Performed By: #### C DP, LIP #### [facility] [address] [place], [place] [id number] [employer] Decorator: Zafar Castillo MD pH (U) 5.5 [pH] Normal 5.0-9.0 [facility] Comment on above: Performed By: #### C DP, LIP #### [facility] [address] [place], [place] [id number] [employer] Decorator: Zafar Castillo MD Protein Ql (U) Negative Normal NEG [facility] Comment on above: Performed By: #### C DP, LIP #### [facility] [address] [place], [place] [id number] [employer] Decorator: Zafar Castillo MD Specific gravity (U) [Rel density] 1.010 Normal 1.010-1.020 [facility] Comment on above: Performed By: #### C DP, LIP #### [facility] [address] [place], [place] [id number] [employer] Decorator: Zafar Castillo MD Turbidity CLEAR Normal CLEAR [facility] Comment on above: Performed By: #### C DP, LIP #### [facility] [address] [place], [place] [id number] [employer] Decorator: Zafar Castillo MD Urobilinogen,Ur Normal Normal NORM [facility] Comment on above: Performed By: #### C DP, LIP #### [facility] [address] [place], [place] [id number] [employer] Decorator: Zafar Castillo MD Comment NOT REPORTED Normal [facility] Comment on above: Performed By: #### C DP, LIP #### [facility] [address] [place] [address] [employer] Brush Decorator: Zafar Castillo MD Urinalysis, reflex to micros copicon 03-26-2020 Bilirubin Urine Negative NEGATIVE [facility] [place] Color, UA YELLOW YELLOW [facility] [place] Glucose, Ur Negative NEGATIVE [place] Ketones Ql (U) Negative NEGATIVE [place] Leukocyte esterase Test strip Ql (U) Negative NEGATIVE [place] Nitrite, Urine Negative NEGATIVE [place] pH, UA 5.5 [place] Protein (U) [Mass/Vol] Negative NEGATIVE [place] Specific [place], UA 1.010 [place], [place] Turbidity UA CLEAR CLEAR [place] Urinalysis Comments NOT REPORTED [place] Urine Hgb Negative NEGATIVE [place] Urobilinogen, Urine Normal Normal [place] CBC auto differentialon 08-07 Basophils (Bld) [#/Vol] 0.04 10*3/uL [place] Basophils/100 WBC (Bld) 1 % 0 - 2 % [place] Differential Type NOT REPORTED [place] Eosinophils (Bld) [#/Vol] 0.10 10*3/uL [place] Eosinophils/100 WBC (Bld) 1 % 1 - 4 % [place] Erythrocyte distribution width (RBC) [Ratio] 13.0 % 11.8 - 14.4 % [place] Hematocrit (Bld) [Volume fraction] 35.2 % Low 36.3 - 47.1 % [place] Hemoglobin (Bld) [Mass/Vol] 11.7 g/dL Low 11.9 - 15.1 g/dL [place] Immature granulocytes (Bld) [#/Vol] 10*3/uL [place] Immature granulocytes (Bld) [#/Vol] 0 % 0 [place] Interpretation and review of laboratory results Abnormal [place] Lymphocytes (Bld) [#/Vol] 1.87 10*3/uL [place] Lymphocytes/100 WBC (Bld) 22 % Low 24 - 43 % [place] MCH (RBC) [Entitic mass] 32.5 pg 25.2 - 33.5 pg [place] MCHC (RBC) [Mass/Vol] 33.2 g/dL 28.4 - 34.8 g/dL [place] MCV (RBC) [Entitic vol] 97.8 fL 82.6 - 102.9 fL [place] Monocytes (Bld) [#/Vol] 0.86 10*3/uL [place] Monocytes/100 WBC (Bld) 10 % 3 - 12 % [place] Platelet mean volume (Bld) [Entitic vol] 9.8 fL 8.1 - 13.5 fL [place] Platelets (Bld) [#/Vol] 178 10*3/uL [place] RBC (Bld) [#/Vol] 3.60 10*6/uL Low 3.95 - 5.1 1 m/uL [place] Segmented neutrophils/100 WBC (Bld) 66 % High 36 - 65 % [place] Segs Absolute 5.53 [place] WBC (Bld) [#/Vol] 0.0 10*3/uL 0.0 per 10 0 WBC [place] WBC (Bld) [#/Vol] 8.4 10*3/uL [place] CBC with Diffon 08-25-2019 Abs. Basophil 0.04 k/uL Normal 0.00-0.20 [facility] Comment on above: Performed By: #### C DP, LIP #### [address] [place] [address] [employer] Brush Decorator: Zafar Castillo MD Abs.Imm.Granulocyte <0.03 Normal 0.00-0.30 [facility] Comment on above: Performed By: #### C DP, LIP #### [facility] [address] [place] [address] [employer] Brush Decorator: Zafar Castillo MD Abs.Neutrophil (Seg) 5.53 k/uL Normal 1.50-8.10 [facility] Comment on above: Performed By: #### C DP, LIP #### [address] [place] [facility]83 [employer] Br[employer] Decorator: Zafar Castillo MD Basophils/100 WBC (Bld) 1 % Normal 0-2 [facility] Comment on above: Performed By: #### C DP, LIP #### [facility] [address] [place], [place] [id number] [employer] Decorator: Zafar Castillo MD Eosinophils (Bld) [#/Vol] 0.10 10*3/uL Normal 0.00-0.44 [facility] Comment on above: Performed By: #### C DP, LIP #### [facility] [address] [place], [facility]83 [employer] Decorator: Zafar Castillo MD Eosinophils/100 WBC (Bld) 1 % Normal 1-4 [facility] Comment on above: Performed By: #### C DP, LIP #### [facility] [address] [place], [facility]83 [employer] Decorator: Zafar Castillo MD Erythrocyte distribution width (RBC) [Ratio] 13.0 % Normal 11.8-14.4 [facility] Comment on above: Performed By: #### C DP, LIP #### [address] [place] [id number] [employer] Decorator: Zafar Castillo MD Hematocrit (Bld) [Volume fraction] 35.2 % Low 36.3-47.1 [facility] Comment on above: Performed By: #### C DP, LIP #### [facility] [address] [place], [facility]83 [employer] Br[employer] Decorator: Zafar Castillo MD Hemoglobin (Bld) [Mass/Vol] 11.7 g/dL Low 11.9-15.1 [facility] Comment on above: Performed By: #### C DP, LIP #### [facility] [address] [place] [address] [employer] Brush Decorator: Zafar Castillo MD Immature granulocytes (Bld) [#/Vol] 0 % Normal 0 [facility] Comment on above: Performed By: #### C DP, LIP #### [facility] [address] [place], [place] [address] [employer] Brush Decorator: Zafar Castillo MD Lymphocytes (Bld) [#/Vol] 1.87 10*3/uL Normal 1.10-3.70 [facility] Comment on above: Performed By: #### C DP, LIP #### [facility] [address] [place], [facility]83 [employer] Br[employer] Decorator: Zafar Castillo MD Lymphocytes/100 WBC (Bld) 22 % Low 24-43 [facility] Comment on above: Performed By: #### C DP, LIP #### [facility] [address] [place], [facility]83 [employer] Brush Decorator: Zafar Castillo MD MCH (RBC) [Entitic mass] 32.5 pg Normal 25.2-33.5 [facility] Comment on above: Performed By: #### C DP, LIP #### [facility] [address] [place], [facility]83 [employer] Brush Decorator: Zafar Castillo MD MCHC (RBC) [Mass/Vol] 33.2 g/dL Normal 28.4-34.8 [facility] Comment on above: Performed By: #### C DP, LIP #### [address] [place], [facility]83 Air Brush Decorator: Zafar Castillo MD MCV (RBC) [Entitic vol] 97.8 fL Normal 82.6-102.9 [facility] Comment on above: Performed By: #### C DP, LIP #### [facility] [address] [place], [place] [id number] [employer] Br[employer] Decorator: Zafar Castillo MD Monocytes (Bld) [#/Vol] 0.86 10*3/uL Normal 0.10-1.20 [facility] Comment on above: Performed By: #### C DP, LIP #### [facility] [address] [place], [place] [id number] [employer] Decorator: Zafar Castillo MD Monocytes/100 WBC (Bld) 10 % Normal 3-12 [facility] Comment on above: Performed By: #### C DP, LIP #### [facility] [address] [place], [place] [id number] [employer] Br[employer] Decorator: Zafar Castillo MD Neutrophil (Seg) 66 % High 36-65 [facility] Comment on above: Performed By: #### C DP, LIP #### [facility] [address] [place], [facility]83 [employer] Brush Decorator: Zafar Castillo MD NRBC Automated 0.0 per 100 WBC Normal 0.0 [facility] Comment on above: Performed By: #### C DP, LIP #### [facility] [address] [place], [facility]83 [employer] Brush Decorator: Zafar Castillo MD Platelet mean volume (Bld) [Entitic vol] 9.8 fL Normal 8.1-13.5 [facility] Comment on above: Performed By: #### C DP, LIP #### [facility] [address] [place], [place] [id number] [employer] Br[employer] Decorator: Zafar Castillo MD Platelets (Bld) [#/Vol] 178 10*3/uL Normal 138-453 [facility] Comment on above: Performed By: #### C DP, LIP #### [facility] [address] [place], [place] [id number] [employer] Decorator: Zafar Castillo MD RBC (Bld) [#/Vol] 3.60 10*6/uL Low 3.95-5.11 [facility] Comment on above: Performed By: #### C DP, LIP #### [facility] [address] [place] [address] [employer] Brush Decorator: Zafar Castillo MD WBC (Bld) [#/Vol] 8.4 10*3/uL Normal 3.5-11.3 [facility] Comment on above: Performed By: #### C DP, LIP #### [facility] [address] [place], [place] [id number] [employer] Brush Decorator: Zafar Castillo MD Auto Diff Performed NOT REPORTED Normal [facility] Comment on above: Performed By: #### C DP, LIP #### [facility] [address] [place], [place] [id number] [employer] Brush Decorator: Zafar Castillo MD Platelets (Bld) [#/Vol] NOT REPORTED Normal [place] Comment on above: Performed By: #### C DP, LIP #### [address] [place] [address] [employer] Brush Decorator: Zafar Castillo MD RBC morphology finding Nom (Bld) NOT REPORTED Normal [place] Comment on above: Performed By: #### C DP, LIP #### [facility] [address] [place] [address] [place] [address] [employer] Brush Decorator: Zafar Castillo MD WBC Morphology NOT REPORTED Normal [place] Comment on above: Performed By: #### C DP, LIP #### [facility] [address] [place] [address] Dr. [place], [place] [id number] [employer] Brush Decorator: Zafar Castillo MD Lipaseon 08-25-2019 Lipase [Catalytic activity/Vol] 42 U/L Normal 13-60 [facility] Comment on above: Performed By: #### C DP, LIP #### [facility] [address] [place] [address] [employer] Brush Decorator: Zafar Castillo MD Lipase [Catalytic activity/Vol] 42 U/L - 60 U/L [place] CBC auto differentialon 08-07 Basophils (Bld) [#/Vol] 0.04 10*3/uL [place] Basophils/100 WBC (Bld) 1 % 0 - 2 % [place] Differential Type NOT REPORTED [place] Eosinophils (Bld) [#/Vol] 0.08 10*3/uL [place] Eosinophils/100 WBC (Bld) 1 % 1 - 4 % [place] Erythrocyte distribution width (RBC) [Ratio] 12.9 % 11.8 - 14.4 % [place] Hematocrit (Bld) [Volume fraction] 35.9 % Low 36.3 - 47.1 % [place] Hemoglobin (Bld) [Mass/Vol] 11.9 g/dL 11.9 - 15.1 g/dL [place] Immature granulocytes (Bld) [#/Vol] 0 % 0 [place] Immature granulocytes (Bld) [#/Vol] 0.03 10*3/uL [place] Interpretation and review of laboratory results Abnormal [place] Lymphocytes (Bld) [#/Vol] 1.79 10*3/uL [place] Lymphocytes/100 WBC (Bld) 22 % Low 24 - 43 % [place] MCH (RBC) [Entitic mass] 32.3 pg 25.2 - 33.5 pg [place] MCHC (RBC) [Mass/Vol] 33.1 g/dL 28.4 - 34.8 g/dL [place] MCV (RBC) [Entitic vol] 97.6 fL 82.6 - 102.9 fL [place] Monocytes (Bld) [#/Vol] 0.75 10*3/uL [place] Monocytes/100 WBC (Bld) 9 % 3 - 12 % [place] Platelet mean volume (Bld) [Entitic vol] 10.1 fL 8.1 - 13.5 fL [place] Platelets (Bld) [#/Vol] 176 10*3/uL [place] Platelets (Bld) [#/Vol] NOT REPORTED [place] RBC (Bld) [#/Vol] 3.68 10*6/uL Low 3.95 - 5.1 1 m/uL [place] RBC morphology finding Nom (Bld) NOT REPORTED [place] Segmented neutrophils/100 WBC (Bld) 67 % High 36 - 65 % [place] Segs Absolute 5.61 [place] WBC (Bld) [#/Vol] 0.0 10*3/uL 0.0 per 10 0 WBC [place] WBC (Bld) [#/Vol] 8.3 10*3/uL [place] WBC Morphology NOT REPORTED [place] CBC with Diffon 08-24-2019 Abs. Basophil 0.04 k/uL Normal 0.00-0.20 [facility] Comment on above: Performed By: #### C DP, LIP #### [facility] [address] [place] [address] Dr. [place] [id number] [employer] Brush Decorator: Zafar Castillo MD Abs.Imm.Granulocyte 0.03 k/uL Normal 0.00-0.30 [facility] Comment on above: Performed By: #### C DP, LIP #### [address] [place] [address] Air Brush Decorator: Zafar Castillo MD Abs.Neutrophil (Seg) 5.61 k/uL Normal 1.50-8.10 [facility] Comment on above: Performed By: #### C DP, LIP #### [address] [place] [address] [employer] Brush Decorator: Zafar Castillo MD Basophils/100 WBC (Bld) 1 % Normal 0-2 [facility] Comment on above: Performed By: #### C DP, LIP #### [facility] [address] [place] [id number] [employer] Br[employer] Decorator: Zafar Castillo MD Eosinophils (Bld) [#/Vol] 0.08 10*3/uL Normal 0.00-0.44 [facility] Comment on above: Performed By: #### C DP, LIP #### [facility] [address] [place], [place] [id number] [employer] Decorator: Zafar Castillo MD Eosinophils/100 WBC (Bld) 1 % Normal 1-4 [facility] Comment on above: Performed By: #### C DP, LIP #### [facility] [address] [place], [place] 1879883 [employer] Brush Decorator: Zafar Castillo MD Erythrocyte distribution width (RBC) [Ratio] 12.9 % Normal 11.8-14.4 [facility] Comment on above: Performed By: #### C DP, LIP #### [facility] [address] [place] [address] [employer] Brush Decorator: Zafar Castillo MD Hematocrit (Bld) [Volume fraction] 35.9 % Low 36.3-47.1 [facility] Comment on above: Performed By: #### C DP, LIP #### [facility] [address] [place] [phone] [employer] Brush Decorator: Zafar Castillo MD Hemoglobin (Bld) [Mass/Vol] 11.9 g/dL Normal 11.9-15.1 [facility] Comment on above: Performed By: #### C DP, LIP #### [address] [place] [phone] [employer] Brush Decorator: Zafar Castillo MD Immature granulocytes (Bld) [#/Vol] 0 % Normal 0 [facility] Comment on above: Performed By: #### C DP, LIP #### [facility] [address] [place] [id number] [employer] Brush Decorator: Zafar Castillo MD Lymphocytes (Bld) [#/Vol] 1.79 10*3/uL Normal 1.10-3.70 [facility] Comment on above: Performed By: #### C DP, LIP #### [facility] [address] [place] [id number] [employer] Brush Decorator: Zafar Castillo MD Lymphocytes/100 WBC (Bld) 22 % Low 24-43 [facility] Comment on above: Performed By: #### C DP, LIP #### [facility] [address] [place], [place] [id number] [employer] Br[employer] Decorator: Zafar Castillo MD MCH (RBC) [Entitic mass] 32.3 pg Normal 25.2-33.5 [facility] Comment on above: Performed By: #### C DP, LIP #### [facility] [address] [place], [place] [id number] [employer] Brush Decorator: Zafar Castillo MD MCHC (RBC) [Mass/Vol] 33.1 g/dL Normal 28.4-34.8 [facility] Comment on above: Performed By: #### C DP, LIP #### [address] [place], [facility]83 Air Brush Decorator: Zafar Castillo MD MCV (RBC) [Entitic vol] 97.6 fL Normal 82.6-102.9 [facility] Comment on above: Performed By: #### C DP, LIP #### [facility] [address] [place], [place] [id number] [employer] Br[employer] Decorator: Zafar Castillo MD Monocytes (Bld) [#/Vol] 0.75 10*3/uL Normal 0.10-1.20 [facility] Comment on above: Performed By: #### C DP, LIP #### [facility] [address] [place], [place] [id number] [employer] Br[employer] Decorator: Zafar Castillo MD Monocytes/100 WBC (Bld) 9 % Normal 3-12 [facility] Comment on above: Performed By: #### C DP, LIP #### [facility] [address] [place], [place] [id number] [employer] Br[employer] Decorator: Zafar Castillo MD Neutrophil (Seg) 67 % High 36-65 [facility] Comment on above: Performed By: #### C DP, LIP #### [facility] [address] [place] [address] [employer] Br[employer] Decorator: Zafar Castillo MD NRBC Automated 0.0 per 100 WBC Normal 0.0 [facility] Comment on above: Performed By: #### C DP, LIP #### [facility] [address] [place], [facility]83 Air Brush Decorator: Zafar Castillo MD Platelet mean volume (Bld) [Entitic vol] 10.1 fL Normal 8.1-13.5 [facility] Comment on above: Performed By: #### C DP, LIP #### [facility] [address] [place], [facility]83 Air Brush Decorator: Zafar Castillo MD Platelets (Bld) [#/Vol] 176 10*3/uL Normal 138-453 [facility] Comment on above: Performed By: #### C DP, LIP #### [facility] [address] [place], [facility]83 Air Brush Decorator: Zafar Castillo MD RBC (Bld) [#/Vol] 3.68 10*6/uL Low 3.95-5.11 [facility] Comment on above: Performed By: #### C DP, LIP #### [facility] [address] [place], [facility]83 Air Brush Decorator: Zafar Castillo MD WBC (Bld) [#/Vol] 8.3 10*3/uL Normal 3.5-11.3 [facility] Comment on above: Performed By: #### C DP, LIP #### [facility] [address] [place], [facility]83 Air Brush Decorator: Zafar Castillo MD Auto Diff Performed NOT REPORTED Normal [facility] Comment on above: Performed By: #### C DP, LIP #### [facility] [address] [place], [facility]83 Air Brush Decorator: Zafar Castillo MD Platelets (Bld) [#/Vol] NOT REPORTED Normal [facility] Comment on above: Performed By: #### C DP, LIP #### [facility] [address] [place], [place] [phone] [employer] Decorator: Zafar Castillo MD RBC morphology finding Nom (Bld) NOT REPORTED Normal [facility] Comment on above: Performed By: #### C DP, LIP #### [facility] [address] [place], [place] [id number] [employer] Decorator: Zafar Castillo MD WBC Morphology NOT REPORTED Normal [facility] Comment on above: Performed By: #### C DP, LIP #### [facility] [address] [place], [place] [id number] [employer] Br[employer] Decorator: Zafar Castillo MD Lipaseon 08-24-2019 Lipase [Catalytic activity/Vol] 69 U/L High 13-60 [facility] Comment on above: Performed By: #### C DP, LIP #### [facility] [address] [place] [address] [employer] Br[employer] Decorator: Zafar Castillo MD Interpretation and review of laboratory results Abnormal [place] Lipase [Catalytic activity/Vol] 69 U/L High 13 - 60 U/L [place] CBC auto differentialon 08-07 Basophils (Bld) [#/Vol] 0.05 10*3/uL [place] Basophils/100 WBC (Bld) 1 % 0 - 2 % [place] Differential Type NOT REPORTED [place] Eosinophils (Bld) [#/Vol] 0.13 10*3/uL [place] Eosinophils/100 WBC (Bld) 2 % 1 - 4 % [place] Erythrocyte distribution width (RBC) [Ratio] 13.2 % 11.8 - 14.4 % [place] Hematocrit (Bld) [Volume fraction] 36.7 % 36.3 - 47.1 % [place] Hemoglobin (Bld) [Mass/Vol] 11.8 g/dL Low 11.9 - 15.1 g/dL [place] Immature granulocytes (Bld) [#/Vol] 0 % 0 [place] Immature granulocytes (Bld) [#/Vol] 10*3/uL [place] Interpretation and review of laboratory results Abnormal [place] Lymphocytes (Bld) [#/Vol] 2.39 10*3/uL [place] Lymphocytes/100 WBC (Bld) 28 % 24 - 43 % [place] MCH (RBC) [Entitic mass] 32.1 pg 25.2 - 33.5 pg [place] MCHC (RBC) [Mass/Vol] 32.2 g/dL 28.4 - 34.8 g/dL [place] MCV (RBC) [Entitic vol] 99.7 fL 82.6 - 102.9 fL [place] Monocytes (Bld) [#/Vol] 0.77 10*3/uL [place] Monocytes/100 WBC (Bld) 9 % 3 - 12 % [place] Platelet mean volume (Bld) [Entitic vol] 10.1 fL 8.1 - 13.5 fL [place] Platelets (Bld) [#/Vol] 174 10*3/uL [place] Platelets (Bld) [#/Vol] NOT REPORTED [place] RBC (Bld) [#/Vol] 3.68 10*6/uL Low 3.95 - 5.1 1 m/uL [place] RBC morphology finding Nom (Bld) NOT REPORTED [place] Segmented neutrophils/100 WBC (Bld) 60 % 36 - 65 % [place] Segs Absolute 5.22 [place] WBC (Bld) [#/Vol] 0.0 10*3/uL 0.0 per 10 0 WBC [place] WBC (Bld) [#/Vol] 8.6 10*3/uL [place] WBC Morphology NOT REPORTED [facility] [place] CBC with Diffon 08-23-2019 Abs. Basophil 0.05 k/uL Normal 0.00-0.20 [facility] Comment on above: Performed By: #### C DP, LIP #### [facility] [address] [place], [place] [id number] [employer] Decorator: Zafar Castillo MD Abs.Imm.Granulocyte <0.03 Normal 0.00-0.30 [facility] Comment on above: Performed By: #### C DP, LIP #### [facility] [address] [place] [address] [employer] Br[employer] Decorator: Zafar Castillo MD Abs.Neutrophil (Seg) 5.22 k/uL Normal 1.50-8.10 [facility] Comment on above: Performed By: #### C DP, LIP #### [facility] [address] [place] [id number] [employer] Decorator: Zafar Castillo MD Basophils/100 WBC (Bld) 1 % Normal 0-2 [facility] Comment on above: Performed By: #### C DP, LIP #### [facility] [address] [place], [place] [id number] [employer] Decorator: Zafar Castillo MD Eosinophils (Bld) [#/Vol] 0.13 10*3/uL Normal 0.00-0.44 [facility] Comment on above: Performed By: #### C DP, LIP #### [facility] [address] [place], [place] [id number] [employer]ator: Zafar Castillo MD Eosinophils/100 WBC (Bld) 2 % Normal 1-4 [facility] Comment on above: Performed By: #### C DP, LIP #### [facility] [address] [place], [place] [id number] [employer]ator: Zafar Csatillo MD Erythrocyte distribution width (RBC) [Ratio] 13.2 % Normal 11.8-14.4 [facility] Comment on above: Performed By: #### C DP, LIP #### [facility] [address] [place], [place] [id number] [employer]ator: Zafar Castillo MD Hematocrit (Bld) [Volume fraction] 36.7 % Normal 36.3-47.1 [facility] Comment on above: Performed By: #### C DP, LIP #### [facility] [address] [place] [address] [employer]ator: Zafar Castillo MD Hemoglobin (Bld) [Mass/Vol] 11.8 g/dL Low 11.9-15.1 [facility] Comment on above: Performed By: #### C DP, LIP #### [address] [place] [facility]83 [employer]ator: Zafar Castillo MD Immature granulocytes (Bld) [#/Vol] 0 % Normal 0 [facility] Comment on above: Performed By: #### C DP, LIP #### [facility] [address] [place] [id number] [employer]ator: Zafar Castillo MD Lymphocytes (Bld) [#/Vol] 2.39 10*3/uL Normal 1.10-3.70 [facility] Comment on above: Performed By: #### C DP, LIP #### [address] [place] [address] [employer]ator: Zafar Castillo MD Lymphocytes/100 WBC (Bld) 28 % Normal 24-43 [facility] Comment on above: Performed By: #### C DP, LIP #### [facility] [address] [place] [id number] [employer]ator: Zafar Castillo MD MCH (RBC) [Entitic mass] 32.1 pg Normal 25.2-33.5 [facility] Comment on above: Performed By: #### C DP, LIP #### [facility] [address] [place] [address] [employer]ator: Zafar Castillo MD MCHC (RBC) [Mass/Vol] 32.2 g/dL Normal 28.4-34.8 [facility] Comment on above: Performed By: #### C DP, LIP #### [facility] [address] [place], [place] [id number] [employer]ator: Zafar Castillo MD MCV (RBC) [Entitic vol] 99.7 fL Normal 82.6-102.9 [facility] Comment on above: Performed By: #### C DP, LIP #### [facility] [address] [place], [facility]83 [employer]ator: Zafar Castillo MD Monocytes (Bld) [#/Vol] 0.77 10*3/uL Normal 0.10-1.20 [facility] Comment on above: Performed By: #### C DP, LIP #### [facility] [address] [place], [facility]83 [employer]ator: Zafar Castillo MD Monocytes/100 WBC (Bld) 9 % Normal 3-12 [facility] Comment on above: Performed By: #### C DP, LIP #### [facility] [address] [place], [facility]83 [employer]ator: Zafar Castillo MD Neutrophil (Seg) 60 % Normal 36-65 [facility] Comment on above: Performed By: #### C DP, LIP #### [facility] [address] [place], [facility]83 [employer]: Zafar Castillo MD NRBC Automated 0.0 per 100 WBC Normal 0.0 [facility] Comment on above: Performed By: #### C DP, LIP #### [facility] [address] [place], [place] [id number] [employer]ator: Zafar Castillo MD Platelet mean volume (Bld) [Entitic vol] 10.1 fL Normal 8.1-13.5 [facility] Comment on above: Performed By: #### C DP, LIP #### [facility] [address] [place], [place] [address] [employer]ator: Zafar Castillo MD Platelets (Bld) [#/Vol] 174 10*3/uL Normal 138-453 [facility] Comment on above: Performed By: #### C DP, LIP #### [facility] [address] [place], [facility]83 [employer]: Zafar Castillo MD RBC (Bld) [#/Vol] 3.68 10*6/uL Low 3.95-5.11 [facility] Comment on above: Performed By: #### C DP, LIP #### [facility] [address] [place], [facility]83 [employer]ator: Zafar Castillo MD WBC (Bld) [#/Vol] 8.6 10*3/uL Normal 3.5-11.3 [facility] Comment on above: Performed By: #### C DP, LIP #### [facility] [address] [place], [place] [address] [employer]ator: Zafar Castillo MD Auto Diff Performed NOT REPORTED Normal [facility] Comment on above: Performed By: #### C DP, LIP #### [facility] [address] [place], [place] [address] [employer]ator: Zafar Castillo MD Platelets (Bld) [#/Vol] NOT REPORTED Normal [facility] Comment on above: Performed By: #### C DP, LIP #### [facility] [address] [place], [place] [address] [employer]ator: Zafar Castillo MD RBC morphology finding Nom (Bld) NOT REPORTED Normal [facility] Comment on above: Performed By: #### C DP, LIP #### [facility] [address] [place], [facility]83 [employer]ator: aZfar Castillo MD WBC Morphology NOT REPORTED Normal [facility] Comment on above: Performed By: #### C DP, LIP #### [facility] [address] [place] [address] [employer]ator: Zafar Castillo MD Comp Metabolic Profon 2019 (cont.) Normal [facility] Comment on above: Result Comment: Aver age GFR for 50-59 years old: 93 mL/min/1.73sq m Chronic Kidney Disease: <60 mL/min/1.73sq m Kidney failure: <15 mL/min/1.73sq m eGFR calculated using average adult body mass. Additional eGFR calculator available at: http://www.[employer]/multiple_crcl_2011.htm Performed By: #### C DP, LIP #### [facility] [address] [place] [address] [employer]: Zafar Castillo MD Albumin [Mass/Vol] 3.4 g/dL Low 3.5-5.2 [facility] Comment on above: Performed By: #### C DP, LIP #### [facility] [address] [place] [address] [employer]: Zafar Castillo MD Albumin/Globulin [Mass ratio] 1.7 {ratio} Normal 1.0-2.5 [facility] Comment on above: Performed By: #### C DP, LIP #### [facility] [address] [place], [place] [id number] [employer]ator: Zafar Castillo MD Alkaline Phos 102 U/L Normal 35-104 [facility] Comment on above: Performed By: #### C DP, LIP #### [facility] [address] [place] [address] [employer]ator: Zafar Castillo MD ALT [Catalytic activity/Vol] 34 U/L High 5-33 [facility] Comment on above: Performed By: #### C DP, LIP #### [facility] [address] [place], [place] [id number] [employer]ator: Zafar Castillo MD Anion gap [Moles/Vol] 7 mmol/L Low 9-17 [facility] Comment on above: Performed By: #### C DP, LIP #### [facility] [address] [place], [place] [id number] [employer]ator: Zafar Castillo MD AST [Catalytic activity/Vol] 95 U/L High <32 [facility] Comment on above: Performed By: #### C DP, LIP #### [facility] [address] [place], [place] [id number] [employer]ator: Zafar Castillo MD Bilirubin Ql (U) 0.46 mg/dL Normal 0.3-1.2 [facility] Comment on above: Performed By: #### C DP, LIP #### [facility] [address] [place], [place] [id number] [employer]ator: Zafar Castillo MD BUN/CRE Ratio 11 Normal 9-20 [facility] Comment on above: Performed By: #### C DP, LIP #### [facility] [address] [place], [place] [id number] [employer]ator: Zafar Castillo MD Calcium [Mass/Vol] 8.4 mg/dL Low 8.6-10.4 [facility] Comment on above: Performed By: #### C DP, LIP #### [facility] [address] [place], [place] [id number] [employer]ator: Zafar Castillo MD Chloride [Moles/Vol] 109 mmol/L High 98-107 [facility] Comment on above: Performed By: #### C DP, LIP #### [facility] [address] [place] [address] [employer]ator: Zafar Castillo MD CO2 [Moles/Vol] 22 mmol/L Normal 20-31 [facility] Comment on above: Performed By: #### C DP, LIP #### [facility] [address] [place] [address] [employer]ator: Zafar Castillo MD Creatinine [Mass/Vol] 0.66 mg/dL Normal 0.50-0.90 [facility] Comment on above: Performed By: #### C DP, LIP #### [facility] [address] [place], [place] [id number] [employer]ator: Zafar Castillo MD GFR, Amer >60 Normal >60 [facility] Comment on above: Performed By: #### C DP, LIP #### [facility] [address] [place] [address] [employer]ator: Zafar Castillo MD GFR,non Amer >60 Normal >60 [facility] Comment on above: Performed By: #### C DP, LIP #### [facility] [address] [place], [place] [address]483 [employer]ator: Zafar Castillo MD Glucose [Mass/Vol] 89 mg/dL Normal 70-99 [facility] Comment on above: Performed By: #### C DP, LIP #### [facility] [address] [place], [place] [address]83 [employer]ator: Zafar Castillo MD Potassium [Moles/Vol] 4.3 mmol/L Normal 3.7-5.3 [facility] Comment on above: Performed By: #### C DP, LIP #### [facility] [address] [place], [place] [address] [employer]ator: Zafar Castillo MD Protein [Mass/Vol] 5.4 g/dL Low 6.4-8.3 [facility] Comment on above: Performed By: #### C DP, LIP #### [facility] [address] [place] [address] [employer] Dec[employer]ator: Zafar Castillo MD Sodium [Moles/Vol] 138 mmol/L Normal 135-144 [facility] Comment on above: Performed By: #### C DP, LIP #### [facility] [address] [place] [address] [employer] Dec[employer]ator: Zafar Castillo MD Staging: Normal [facility] Comment on above: Result Comment: Stag e 1: Some kidney damage normal GFR Stage 2: Mild kidney damage GFR 60-89 Stage 3: Moderate kidney damage GFR 30-59 Stage 4: Severe kidney damage GFR 15-29 Stage 5: Severe kidney damage GFR <15 ESRD - chronic treatment by dialysis or transplant Performed By: #### C DP, LIP #### [facility] [address] [place] [address] [employer]ator: Zafar Castillo MD Urea nitrogen [Mass/Vol] 7 mg/dL Normal 6-20 [facility] Comment on above: Performed By: #### C DP, LIP #### [facility] [address] [place] [address] [employer] Dec[employer]ator: Zafar Castillo MD [facility] 08-23-2019 Albumin [Mass/Vol] 3.4 g/dL Low 3.5 - 5.2 g/dL [place] Albumin/Globulin [Mass ratio] 1.7 {ratio} [place] ALP [Catalytic activity/Vol] 102 U/L 35 - 104 U/L [place] ALT [Catalytic activity/Vol] 34 U/L High 5 - 33 U/L [place] Anion gap [Moles/Vol] 7 mmol/L Low 9 - 17 mmol/L [place] AST [Catalytic activity/Vol] 95 U/L High <32 [place] Bilirubin Ql (U) 0.46 mg/dL 0.3 - 1.2 mg/dL [place] Bun/Cre Ratio 11 [place] Calcium [Mass/Vol] 8.4 mg/dL Low 8.6 - 10. 4 mg/dL [place] Chloride [Moles/Vol] 109 mmol/L High 98 - 10 7 mmol/L [place] CO2 [Moles/Vol] 22 mmol/L 20 - 31 mmol/L [place] Creatinine [Mass/Vol] 0.66 mg/dL 0.5 - 0.9 mg/dL [place] GFR >60 >60 mL/min [place] GFR Non- >60 >60 mL/min [place] Glucose [Mass/Vol] 89 mg/dL 70 - 99 mg/dL [place] Potassium [Moles/Vol] 4.3 mmol/L 3.7 - 5.3 mmol/L [place] Protein [Mass/Vol] 5.4 g/dL Low 6.4 - 8.3 g/dL [place] Sodium [Moles/Vol] 138 mmol/L 135 - 144 mmol/L [place] Urea nitrogen [Mass/Vol] 7 mg/dL 6 - 20 mg/dL [place] Lipaseon 08-23-2019 Lipase [Catalytic activity/Vol] 96 U/L High 13-60 [facility] Comment on above: Performed By: #### C DP, LIP #### [facility] [address] [place] [address] [employer] Dec[employer]ator: Zafar Castillo MD Lipase [Catalytic activity/Vol] 96 U/L High 13 - 60 U/L [place] Metabolic Panelon 08-23-2019 GFR/1.73 sq M predicted among non-blacks MDRD (S/P/Bld) [Vol rate/Area] [place] Comment on above: Stage 1: Some [...] body mass. Additional eGFR calculator available at: http://www.[employer].Spinal Restoration/multiple_crcl_2012.htm Otheron 08-23-2019 Interpretation and review of laboratory results Abnormal [place] CBC Auto Differentialon 08-07 Basophils (Bld) [#/Vol] 0.06 10*3/uL [place] Basophils/100 WBC (Bld) 1 % 0 - 2 % [place] Differential Type NOT REPORTED [place] Eosinophils (Bld) [#/Vol] 0.11 10*3/uL [place] Eosinophils/100 WBC (Bld) 1 % 1 - 4 % [place] Erythrocyte distribution width (RBC) [Ratio] 13.2 % 11.8 - 14.4 % [place] Hematocrit (Bld) [Volume fraction] 41.8 % 36.3 - 47.1 % [place] Hemoglobin (Bld) [Mass/Vol] 13.7 g/dL 11.9 - 15.1 g/dL [place] Immature granulocytes (Bld) [#/Vol] 0.03 10*3/uL [place] Immature granulocytes (Bld) [#/Vol] 0 % 0 [place] Interpretation and review of laboratory results Abnormal [place] Lymphocytes (Bld) [#/Vol] 2.23 10*3/uL [place] Lymphocytes/100 WBC (Bld) 24 % 24 - 43 % [place] MCH (RBC) [Entitic mass] 32.6 pg 25.2 - 33.5 pg [place] MCHC (RBC) [Mass/Vol] 32.8 g/dL 28.4 - 34.8 g/dL [place] MCV (RBC) [Entitic vol] 99.5 fL 82.6 - 102.9 fL [place] Monocytes (Bld) [#/Vol] 0.72 10*3/uL [place] Monocytes/100 WBC (Bld) 8 % 3 - 12 % [place] Platelet mean volume (Bld) [Entitic vol] 10.0 fL 8.1 - 13.5 fL [place] Platelets (Bld) [#/Vol] NOT REPORTED [place] Platelets (Bld) [#/Vol] 213 10*3/uL [place] RBC (Bld) [#/Vol] 4.20 10*6/uL 3.95 - 5.1 1 m/uL [place] RBC morphology finding Nom (Bld) NOT REPORTED [place] Segmented neutrophils/100 WBC (Bld) 66 % High 36 - 65 % [place] Segs Absolute 6.22 [place] WBC (Bld) [#/Vol] 0.0 10*3/uL 0.0 per 10 0 WBC [place] WBC (Bld) [#/Vol] 9.4 10*3/uL [place] WBC Morphology NOT REPORTED [place] CBC with Diffon 08-22-2019 Abs. Basophil 0.06 k/uL Normal 0.00-0.20 [facility] Comment on above: Performed By: #### C P, CDP, LIP #### [address] [place] [address] [employer]ator: Zafar Castillo MD Abs.Imm.Granulocyte 0.03 k/uL Normal 0.00-0.30 [facility] Comment on above: Performed By: #### C P, CDP, LIP #### [address] [place] [id number] [employer] Decorator: Zafar Castillo MD Abs.Neutrophil (Seg) 6.22 k/uL Normal 1.50-8.10 [facility] Comment on above: Performed By: #### C P, CDP, LIP #### [address] [place] [address] [employer] Decorator: Zafar Castillo MD Basophils/100 WBC (Bld) 1 % Normal 0-2 [facility] Comment on above: Performed By: #### C P, CDP, LIP #### [address] [place], [facility]83 [employer]ator: Zafar Castillo MD Eosinophils (Bld) [#/Vol] 0.11 10*3/uL Normal 0.00-0.44 [facility] Comment on above: Performed By: #### C P, CDP, LIP #### [address] [place], [place] [address] [employer] Decorator: Zafar Castillo MD Eosinophils/100 WBC (Bld) 1 % Normal 1-4 [facility] Comment on above: Performed By: #### C P, CDP, LIP #### [address] [place] [address] [employer] Dec[employer]ator: Zafar Castillo MD Erythrocyte distribution width (RBC) [Ratio] 13.2 % Normal 11.8-14.4 [facility] Comment on above: Performed By: #### C P, CDP, LIP #### [address] [place] [address] [employer]ator: Zafar Castillo MD Hematocrit (Bld) [Volume fraction] 41.8 % Normal 36.3-47.1 [facility] Comment on above: Performed By: #### C P, CDP, LIP #### [address] [place] [address] [employer] Dec[employer]ator: Zafar Castillo MD Hemoglobin (Bld) [Mass/Vol] 13.7 g/dL Normal 11.9-15.1 [facility] Comment on above: Performed By: #### C P, CDP, LIP #### [address] [place] [id number] [employer]ator: Zafar Castillo MD Immature granulocytes (Bld) [#/Vol] 0 % Normal 0 [facility] Comment on above: Performed By: #### C P, CDP, LIP #### [address] [place], [facility]83 [employer] Dec[employer]ator: Zafar Castillo MD Lymphocytes (Bld) [#/Vol] 2.23 10*3/uL Normal 1.10-3.70 [facility] Comment on above: Performed By: #### C P, CDP, LIP #### [address] [place], [facility]83 [employer]ator: Zafar Castillo MD Lymphocytes/100 WBC (Bld) 24 % Normal 24-43 [facility] Comment on above: Performed By: #### C P, CDP, LIP #### [address] [place] [id number] [employer] Decorator: Zafar Castillo MD MCH (RBC) [Entitic mass] 32.6 pg Normal 25.2-33.5 [facility] Comment on above: Performed By: #### C P, CDP, LIP #### [address] [place] [id number] [employer] Decorator: Zafar Castillo MD MCHC (RBC) [Mass/Vol] 32.8 g/dL Normal 28.4-34.8 [facility] Comment on above: Performed By: #### C P, CDP, LIP #### [address] [place] [id number] [employer] Dec[employer]ator: Zafar Castillo MD MCV (RBC) [Entitic vol] 99.5 fL Normal 82.6-102.9 [facility] Comment on above: Performed By: #### C P, CDP, LIP #### [address] [place] [id number] [employer] Dec[employer]ator: Zafar Castillo MD Monocytes (Bld) [#/Vol] 0.72 10*3/uL Normal 0.10-1.20 [facility] Comment on above: Performed By: #### C P, CDP, LIP #### [address] [place] [id number] [employer] Dec[employer]ator: Zafar Castillo MD Monocytes/100 WBC (Bld) 8 % Normal 3-12 [facility] Comment on above: Performed By: #### C P, CDP, LIP #### [facility] [address] [place], [place] [id number] [employer]ator: Zafar Castillo MD Neutrophil (Seg) 66 % High 36-65 [facility] Comment on above: Performed By: #### C P, CDP, LIP #### [facility] [address] [place], [place] [address]83 [employer] Decorator: Zafar Castillo MD NRBC Automated 0.0 per 100 WBC Normal 0.0 [facility] Comment on above: Performed By: #### C P, CDP, LIP #### [facility] [address] [place], [place] [id number] [employer] Decorator: Zafar Castillo MD Platelet mean volume (Bld) [Entitic vol] 10.0 fL Normal 8.1-13.5 [facility] Comment on above: Performed By: #### C P, CDP, LIP #### [facility] [address] [place], [place] [id number] [employer] Decorator: Zafar Castillo MD Platelets (Bld) [#/Vol] 213 10*3/uL Normal 138-453 [facility] Comment on above: Performed By: #### C P, CDP, LIP #### [facility] [address] [place], [place] 1900483 [employer]ator: Zafar Castillo MD RBC (Bld) [#/Vol] 4.20 10*6/uL Normal 3.95-5.11 [facility] Comment on above: Performed By: #### C P, CDP, LIP #### [facility] [address] [place], [place] [id number] [employer]ator: Zafar Castillo MD WBC (Bld) [#/Vol] 9.4 10*3/uL Normal 3.5-11.3 [facility] Comment on above: Performed By: #### C P, CDP, LIP #### [facility] [address] [place], [place] [id number] [employer] Decorator: Zafar Castillo MD Auto Diff Performed NOT REPORTED Normal [facility] Comment on above: Performed By: #### C P, CDP, LIP #### [facility] [address] [place], [place] [address] [employer]ator: Zafar Castillo MD Platelets (Bld) [#/Vol] NOT REPORTED Normal [facility] Comment on above: Performed By: #### C P, CDP, LIP #### [facility] [address] [place], [place] [address] [employer] Dec[employer]ator: Zafar Castillo MD RBC morphology finding Nom (Bld) NOT REPORTED Normal [facility] Comment on above: Performed By: #### C P, CDP, LIP #### [facility] [address] [place], [place] [address] [employer] Decorator: Zafar Castillo MD WBC Morphology NOT REPORTED Normal [facility] Comment on above: Performed By: #### C P, CDP, LIP #### [facility] [address] [place], [facility]83 [employer] Dec[employer]ator: Zafar Castillo MD Comp Metabolic Profon 2019 Bilirubin Ql (U) <0.10 Low 0.3-1.2 [facility] Comment on above: Performed By: #### C DP, LIP #### [facility] [address] [place], [place] [id number] [employer] Dec[employer]ator: Zafar Castillo MD (cont.) [facility] Comment on above: Result Comment: Aver age GFR for 50-59 years old: 93 mL/min/1.73sq m Chronic Kidney Disease: <60 mL/min/1.73sq m Kidney failure: <15 mL/min/1.73sq m eGFR calculated using average adult body mass. Additional eGFR calculator available at: http://www.[employer].Spinal [employer]oration/multiple_crcl_2011.htm Performed By: #### C DP, LIP #### [facility] [address] [place], [place] 0160383 [employer]ator: Zafar Castillo MD Albumin [Mass/Vol] 4.1 g/dL Normal 3.5-5.2 [facility] Comment on above: Performed By: #### C DP, LIP #### [facility] [address] [place], [place] [address]159383 [employer]ator: Zafar Castillo MD Albumin/Globulin [Mass ratio] 1.6 {ratio} Normal 1.0-2.5 [facility] Comment on above: Performed By: #### C DP, LIP #### [facility] [address] [place], [place] [address] [employer]ator: Zafar Castillo MD Alkaline Phos 109 U/L High 35-104 [facility] Comment on above: Performed By: #### C DP, LIP #### [facility] [address] [place], [place] [id number] [employer] Decorator: Zafar Castillo MD ALT [Catalytic activity/Vol] 13 U/L Normal 5-33 [facility] Comment on above: Performed By: #### C DP, LIP #### [facility] [address] [place], [place] [id number] [employer]ator: Zafar Castillo MD Anion gap [Moles/Vol] 9 mmol/L Normal 9-17 [facility] Comment on above: Performed By: #### C DP, LIP #### [facility] [address] [place], [place] [id number] [employer]ator: Zafar Castillo MD AST [Catalytic activity/Vol] 22 U/L Normal <32 [facility] Comment on above: Performed By: #### C DP, LIP #### [facility] [address] [place], [place] 3458[address] [employer]ator: Zafar Castillo MD BUN/CRE Ratio 13 Normal 9-20 [facility] Comment on above: Performed By: #### C DP, LIP #### [facility] [address] [place], [place] [id number] [employer] Dec[employer]ator: Zafar Castillo MD Calcium [Mass/Vol] 9.2 mg/dL Normal 8.6-10.4 [facility] Comment on above: Performed By: #### C DP, LIP #### [facility] [address] [place], [place] [address]183 [employer]ator: Zafar Castillo MD Chloride [Moles/Vol] 103 mmol/L Normal 98-107 [facility] Comment on above: Performed By: #### C DP, LIP #### [facility] [address] [place], [place] [address]83 [employer]ator: Zafar Castillo MD CO2 [Moles/Vol] 24 mmol/L Normal 20-31 [facility] Comment on above: Performed By: #### C DP, LIP #### [facility] [address] [place], [place] 1086083 [employer] Dec[employer]ator: Zafar Castillo MD Creatinine [Mass/Vol] 0.63 mg/dL Normal 0.50-0.90 [facility] Comment on above: Performed By: #### C DP, LIP #### [facility] [address] [place], [place] 1136783 [employer] Dec[employer]ator: Zafar Castillo MD GFR, Amer >60 Normal >60 [facility] Comment on above: Performed By: #### C DP, LIP #### [facility] [address] [place], [place] [id number] [employer] Decorator: Zafar Castillo MD GFR,non Amer >60 Normal >60 [facility] Comment on above: Performed By: #### C DP, LIP #### [facility] [address] [place], [place] [id number] [employer] Decorator: Zafar Castillo MD Glucose [Mass/Vol] 92 mg/dL Normal 70-99 [facility] Comment on above: Performed By: #### C DP, LIP #### [facility] [address] [place], [place] [id number] [employer]: Zafar Castillo MD Potassium [Moles/Vol] 3.8 mmol/L Normal 3.7-5.3 [facility] Comment on above: Performed By: #### C DP, LIP #### [facility] [address] [place], [place] [id number] [employer]: Zafar Castillo MD Protein [Mass/Vol] 6.7 g/dL Normal 6.4-8.3 [facility] Comment on above: Performed By: #### C DP, LIP #### [facility] [address] [place], [place] [id number] [employer]ator: Zafar Castillo MD Sodium [Moles/Vol] 136 mmol/L Normal 135-144 [facility] Comment on above: Performed By: #### C DP, LIP #### [address] [place], [place] [id number] [employer]ator: Zafar Castillo MD Staging: Normal [facility] Comment on above: Result Comment: Stag e 1: Some kidney damage normal GFR Stage 2: Mild kidney damage GFR 60-89 Stage 3: Moderate kidney damage GFR 30-59 Stage 4: Severe kidney damage GFR 15-29 Stage 5: Severe kidney damage GFR <15 ESRD - chronic treatment by dialysis or transplant Performed By: #### C DP, LIP #### [facility] [address] [place], [place] [id number] [employer]ator: Zafar Castillo MD Urea nitrogen [Mass/Vol] 8 mg/dL Normal 6-20 [facility] Comment on above: Performed By: #### C DP, LIP #### [facility] [address] [place] [address] [employer]ator: Zafar Castillo MD Comprehensive Metabolic Pane [facility] 08-22-2019 Albumin [Mass/Vol] 4.1 g/dL 3.5 - 5.2 g/dL [place] Albumin/Globulin [Mass ratio] 1.6 {ratio} [place] ALP [Catalytic activity/Vol] 109 U/L High 35 - 104 U/L [place] ALT [Catalytic activity/Vol] 13 U/L 5 - 33 U/L [place] Anion gap [Moles/Vol] 9 mmol/L 9 - 17 mmol/L [place] AST [Catalytic activity/Vol] 22 U/L <32 [place] Bilirubin Ql (U) <0.10 Low 0.3 - 1.2 mg/dL [place] Bun/Cre Ratio 13 [place] Calcium [Mass/Vol] 9.2 mg/dL 8.6 - 10. 4 mg/dL [place] Chloride [Moles/Vol] 103 mmol/L 98 - 10 7 mmol/L [place] CO2 [Moles/Vol] 24 mmol/L 20 - 31 mmol/L [place] Creatinine [Mass/Vol] 0.63 mg/dL 0.5 - 0.9 mg/dL [place] GFR >60 >60 mL/min [place], [place] GFR Non- >60 >60 mL/min [place] Glucose [Mass/Vol] 92 mg/dL 70 - 99 mg/dL [place] Interpretation and review of laboratory results Abnormal [place] Potassium [Moles/Vol] 3.8 mmol/L 3.7 - 5.3 mmol/L [place] Protein [Mass/Vol] 6.7 g/dL 6.4 - 8.3 g/dL [place] Sodium [Moles/Vol] 136 mmol/L 135 - 144 mmol/L [place] Urea nitrogen [Mass/Vol] 8 mg/dL 6 - 20 mg/dL [place] Lactic Acidon 08-22-2019 Lactate [Moles/Vol] 1.5 mmol/L Normal 0.5-2.2 [facility] Comment on above: Performed By: #### L ACTIC #### [facility] [address] [place] [address] [employer]ator: Zafar Castillo MD Lactate [Moles/Vol] NOT REPORTED Normal 0.7-2.1 [facility] Comment on above: Performed By: #### L ACTIC #### [facility] [address] [place] [address] [employer]ator: Zafar Castillo MD Lactic Acid, Plasmaon 2019 Lactate [Moles/Vol] 1.5 mmol/L 0.5 - 2. 2 mmol/L [place] Lactic Acid, Whole Blood NOT REPORTED 0.7 - 2.1 mmol/L [place] Lipaseon 08-22-2019 Lipase [Catalytic activity/Vol] 255 U/L Critically high 13-60 [facility] Comment on above: Performed By: #### C DP, LIP #### [facility] [address] [place] [address] [employer]ator: Zafar Castillo MD Interpretation and review of laboratory results Abnormal [place] Lipase [Catalytic activity/Vol] 255 U/L Critically high 13 - 60 U/L [place] Metabolic Panelon 08-22-2019 GFR/1.73 sq M predicted among non-blacks MDRD (S/P/Bld) [Vol rate/Area] [place] Comment on above: Average GFR for 50-5 9 years old: 93 mL/min/1.73sq m Chronic Kidney Disease: <60 mL/min/1.73sq m Kidney failure: <15 mL/min/1.73sq m eGFR calculated using average adult body mass. Additional eGFR calculator available at: [email or web address]_[email or web address] Stage 1: Some kidney damage normal GFR Stage 2: Mild kidney damage GFR 60-89 Stage 3: Moderate kidney damage GFR 30-59 Stage 4: Severe kidney damage GFR 15-29 Stage 5: Severe kidney damage GFR <15 ESRD - chronic treatment by dialysis or transplant Urinalysis w/ Microon 2019 ----- Normal [facility] Comment on above: Performed By: #### C DP, LIP #### [facility] [address] [place], [place] [id number] [employer]ator: Zafar Castillo MD Acetoacetic Acid,Ur Negative Normal NEG [facility] Comment on above: Performed By: #### C DP, LIP #### [facility] [address] [place] [address] [employer]ator: Zafar Castillo MD Bilirubin, SemiQt,Ur Negative Normal [facility] Comment on above: Performed By: #### C DP, LIP #### [facility] [address] [place], [place] [phone] [employer]ator: Zafar Castillo MD Color (U) YELLOW Normal L [facility] Comment on above: Performed By: #### C DP, LIP #### [address] [place], [place] [phone] [employer]ator: Zafar Castillo MD Epithelial cells LM.HPF (Urine sed) [#/Area] 2 TO 5 Normal 0-25 [facility] Comment on above: Performed By: #### C DP, LIP #### [facility] [address] [place] [address] [employer]ator: Zafar Castillo MD Glucose Ql (U) Negative Normal NEG [facility] in [facility] Comment on above: Performed By: #### C DP, LIP #### [facility] [address] [place] [address] [employer]ator: Zafar Castillo MD Hemoglobin, Ur Negative Normal NEG [facility] Comment on above: Performed By: #### C DP, LIP #### [facility] [address] [place], [place] [phone] [employer]ator: Zafar Castillo MD Leukocyte esterase Test strip Ql (U) Negative Normal NEG [facility] Comment on above: Performed By: #### C DP, LIP #### [facility] [address] [place], [place] [id number] [employer]ator: Zafar Castillo MD Nitrite,Ur Negative Normal NEG [facility] Comment on above: Performed By: #### C DP, LIP #### [facility] [address] [place], [place] [id number] [employer]ator: Zafar Castillo MD pH (U) 6.0 [pH] Normal 5.0-9.0 [facility] Comment on above: Performed By: #### C DP, LIP #### [facility] [address] [place] [phone] [employer]ator: Zafar Castillo MD Protein Ql (U) Negative Normal NEG [facility] Comment on above: Performed By: #### C DP, LIP #### [facility] [address] [place], [place] [phone] [employer]ator: Zafar Castillo MD RBC (U) [#/Vol] None Normal 0-2 [facility] Comment on above: Performed By: #### C DP, LIP #### [facility] [address] [place], [place] [phone] [employer]ator: Zafar Castillo MD Specific gravity (U) [Rel density] <1.005 Low 1.010-1.020 [facility] Comment on above: Performed By: #### C DP, LIP #### [facility] [address] [place], [place] [phone] [employer]ator: Zafar Castillo MD Turbidity CLEAR Normal CLEAR [facility] Comment on above: Performed By: #### C DP, LIP #### [facility] [address] [place] [address] [employer]ator: Zafar Castillo MD Urobilinogen,Ur Normal Normal NORM [facility] Comment on above: Performed By: #### C DP, LIP #### [facility] [address] [place] [address] [employer]ator: Zafar Castillo MD WBC (U) [#/Vol] None Normal 0-5 [facility] Comment on above: Performed By: #### C DP, LIP #### [facility] [address] [place] [address] [employer] Dec[employer]ator: Zafar Castillo MD Amorphous sediment LM Ql (Urine sed) NOT REPORTED Normal [facility] Comment on above: Performed By: #### C DP, LIP #### [address] [place] [address] [employer]ator: Zafar Castillo MD Bacteria LM.HPF (Urine sed) [#/Area] NOT REPORTED Normal [facility] Comment on above: Performed By: #### C DP, LIP #### [address] [place] [address] [employer] Dec[employer]ator: Zafar Castillo MD Casts LM.LPF (Urine sed) [#/Area] NOT REPORTED Normal [facility] Comment on above: Performed By: #### C DP, LIP #### [facility] [address] [place] [address] [employer] Dec[employer]ator: Zafar Castillo MD Comment NOT REPORTED Normal [facility] Comment on above: Performed By: #### C DP, LIP #### [facility] [address] [place] [address] [employer]ator: Zafar Castillo MD Crystals LM Nom (Urine sed) NOT REPORTED Normal [facility] Comment on above: Performed By: #### C DP, LIP #### [facility] [address] [place], [place] [phone] [employer]ator: Zafar Castillo MD Epithelial, Renal NOT REPORTED Normal 0 [facility] Comment on above: Performed By: #### C DP, LIP #### [facility] [address] [place], [place] [id number] [employer] Dec[employer]ator: Zafar Castillo MD Mucus Strands NOT REPORTED Normal [facility] Comment on above: Performed By: #### C DP, LIP #### [facility] [address] [place], [place] [phone] [employer] Dec[employer]ator: Zafar Castillo MD Other Observations NOT REPORTED Normal NREQ [facility] Comment on above: Performed By: #### C DP, LIP #### [facility] [address] [place], [place] [phone] [employer] Dec[employer]ator: Zafar Castillo MD Trichomonas NOT REPORTED Normal [facility] Comment on above: Performed By: #### C DP, LIP #### [facility] [address] [place], [place] [phone] [employer] Dec[employer]ator: Zafar Castillo MD Yeast LM Ql (Urine sed) NOT REPORTED Normal [facility] Comment on above: Performed By: #### C DP, LIP #### [facility] [address] [place], [place] [phone] [employer] Decorator: Zafar Castillo MD Urinalysis with Microscopico n 08-22-2019 Amorphous, UA NOT REPORTED None [facility] [place] Bacteria, UA NOT REPORTED None [facility] [place] Bilirubin Urine Negative NEGATIVE [facility] [place] Casts UA NOT REPORTED /LPF [facility] [place] Color, UA YELLOW YELLOW [facility] Crystals, UA NOT REPORTED None /HPF [facility] [place] Epithelial Cells UA 2 TO 5 [facility] Glucose, Ur Negative NEGATIVE [facility] Interpretation and review of laboratory results Abnormal [facility] [place] Ketones Ql (U) Negative NEGATIVE [facility] [place] Leukocyte esterase Test strip Ql (U) Negative NEGATIVE [place] Mucus, UA NOT REPORTED None [place], [place] Nitrite, Urine Negative NEGATIVE [place] Other Observations UA NOT REPORTED NOT REQ. M [place], [place] pH, UA 6.0 [place] Protein (U) [Mass/Vol] Negative NEGATIVE [place] RBC (U) [#/Vol] None [facility] [place] Renal Epithelial, UA NOT REPORTED 0 /HPF [place] Specific [place], UA <1.005 Low [place] Trichomonas, UA NOT REPORTED None [facility] [place] Turbidity UA CLEAR CLEAR [place] Urinalysis Comments NOT REPORTED [place] Urine Hgb Negative NEGATIVE [place] Urobilinogen, Urine Normal Normal [place] WBC, UA None [place] Yeast, UA NOT REPORTED None [place] CBC WITH AUTO DIFFERENTIALon 03-04-2018 Basophils Auto #/vol (Bld) 0.07 10*3/uL Invalid Interpretation Code [facility] Basophils/100 WBC Auto (Bld) 0.7 % Invalid Interpretation Code [facility] Eosinophils Auto #/vol (Bld) 0.09 10*3/uL Invalid Interpretation Code [facility] Eosinophils/100 WBC Auto (Bld) 0.9 % Invalid Interpretation Code [facility] Erythrocyte distribution width Auto Entitic volume (RBC) 12.8 % Invalid Interpretation Code 11.6 - 14.8 % [facility] Hematocrit Auto Volume Fraction (Bld) 45.0 % Invalid Interpretation Code 36 - 46 % [facility] Hemoglobin mass conc (Bld) 15.4 g/dL Invalid Interpretation Code 12 - 16 g/dL [facility] Immature granulocytes #/vol (Bld) 0.03 10*3/uL Invalid Interpretation Code [facility] Immature granulocytes/100 WBC (Bld) 0.30 % Invalid Interpretation Code [facility] Comment on above: The IG parameter is the percentage of metamyelocytes, myelocytes, and promyelocytes. Interpretation and review of laboratory results Abnormal Invalid Interpretation Code [facility] Lymphocytes Auto #/vol (Bld) 2.22 10*3/uL Invalid Interpretation Code [facility] Lymphocytes/100 WBC Auto (Bld) 21.0 % Invalid Interpretation Code [facility] MCH Auto Entitic mass (RBC) 33.6 pg Invalid Interpretation Code 26 - 34 pg [facility] MCHC Auto mass conc (RBC) 34.2 g/dL Invalid Interpretation Code 31 - 37 g/dL [facility] MCV Auto Entitic volume (RBC) 98.0 fL Invalid Interpretation Code 80 - 100 fL [facility] Monocytes Auto #/vol (Bld) 0.82 10*3/uL Invalid Interpretation Code [facility] Monocytes/100 WBC Auto (Bld) 7.8 % Invalid Interpretation Code [facility] Neutrophils Auto #/vol (Bld) 7.33 10*3/uL High [facility] Neutrophils/100 WBC Auto (Bld) 69.3 % Invalid Interpretation Code [facility] Nucleated RBC #/vol (Bld) 0.00 10*3/uL Invalid Interpretation Code [facility] Nucleated RBC/100 WBC Ratio (Bld) 0.0 % Invalid Interpretation Code [facility] Platelet mean volume Auto Entitic volume (Bld) 10.1 fL Invalid Interpretation Code 9 - 15.5 fL [facility] Platelets Auto #/vol (Bld) 254 10*3/uL Invalid Interpretation Code [facility] RBC Auto #/vol (Bld) 4.59 10*6/uL Invalid Interpretation Code [facility] WBC Auto #/vol (Bld) 10.56 10*3/uL Invalid Interpretation Code [facility] Chem 7on 03-04-2018 Anion gap 3 molar conc 15 mmol/L Invalid Interpretation Code 10 - 20 mmol/L [facility] Chloride molar conc 103 mmol/L Invalid Interpretation Code 98 - 108 mmol/L [facility] Creatinine mass conc 0.85 mg/dL Invalid Interpretation Code 0.4 - 1.1 mg/dL [facility] GFR/1.73 sq M predicted among non-blacks MDRD vol rate/area (S/P/Bld) The eGFR should be used for monitoring renal function only and not for medication dosing. Invalid Interpretation Code [facility] GFR/1.73 sq M.predicted CKD-EPI vol rate/area (S/P/Bld) 81 Invalid Interpretation Code >=60 mL/min/1.73 m2 [facility] Glucose mass conc 92 mg/dL Invalid Interpretation Code 65 - 99 mg/dL [facility] HCO3 molar conc 25 mmol/L Invalid Interpretation Code 21 - 32 mmol/L [facility] Potassium molar conc 4.4 mmol/L Invalid Interpretation Code 3.5 - 5.1 mmol/L [facility] Sodium molar conc 139 mmol/L Invalid Interpretation Code 135 - 145 mmol/L [facility] Urea nitrogen mass conc 7 mg/dL Low 8 - 25 mg/dL [facility] Urea nitrogen/Creatinine mass ratio 8.2 mg/mg Low [facility] Hepatic Function Panel (LFT) on 03-04-2018 Albumin mass conc 4.5 g/dL Invalid Interpretation Code 3.2 - 5.2 g/dL [facility] ALP enzyme act/vol 97 U/L Invalid Interpretation Code 40 - 150 U/L [facility] ALT enzyme act/vol 9 U/L Invalid Interpretation Code 0 - 40 U/L [facility] AST enzyme act/vol 15 U/L Invalid Interpretation Code 0 - 45 U/L [facility] Bilirubin mass conc mg/dL Invalid Interpretation Code 0 - 1.3 mg/dL [facility] Bilirubin.conjugated mass conc mg/dL Invalid Interpretation Code 0 - 0.4 mg/dL [facility] Interpretation and review of laboratory results Normal Invalid Interpretation Code [facility] Protein mass conc 7.2 g/dL Invalid Interpretation Code 6 - 8 g/dL [facility] Lipaseon 03-04-2018 Lipase enzyme act/vol 179 U/L High 15 - 65 U/L [facility] Otheron 03-04-2018 Extra Tube Hold for add-ons. Invalid Interpretation Code [facility] Comment on above: Auto resulted. Interpretation and review of laboratory results Abnormal Invalid Interpretation Code [facility] URINALYSISon 03-04-2018 Bacteria Auto Ql (U) Rare Abnormal None Se en /hpf [facility] Bilirubin Ql (U) Negative Invalid Interpretation Code Negative [facility] Clarity Refractometry automated Nom (U) Clear Invalid Interpretation Code Clear [facility] Color Auto Nom (U) Colorless Invalid Interpretation Code Colorless, Yellow [facility] Epithelial cells.squamous Auto #/area (Urine sed) 1 Invalid Interpretation Code [facility] Glucose Automated test strip mass conc (U) Negative Invalid Interpretation Code Negative mg/dL [facility] Hemoglobin Automated test strip Ql (U) Negative Invalid Interpretation Code Negative [facility] Interpretation and review of laboratory results Abnormal Invalid Interpretation Code [facility] Ketones mass conc (U) Negative Invalid Interpretation Code Negative mg/dL [facility] Leukocyte esterase Automated test strip Ql (U) Negative Invalid Interpretation Code Negative [facility] Nitrite Automated test strip Ql (U) Negative Invalid Interpretation Code Negative [facility] pH Test strip (U) 7.0 [pH] Invalid Interpretation Code [facility] Protein mass conc (U) Negative Invalid Interpretation Code Negative mg/dL [facility] RBC Auto #/area (Urine sed) 2 Invalid Interpretation Code [facility] Specific gravity Automated test strip Relative Density (U) 1.004 Low [facility] Urobilinogen Test strip Qn (U) <2.0 Invalid Interpretation Code <2.0 mg/dL [facility] WBC Auto #/area (Urine sed) <1 Invalid Interpretation Code [facility] Microscopic examination is performed on all urinalysis samples and only positive findings are reported. The test for blood on the chemical analytic portion of urinalysis may also be positive due to hemoglobinuria and myoglobinuria and if red blood cells are present they are quantified by microscopic examination. Invalid Interpretation Code [facility] BMPon 08-24-2017 Anion gap 18 mmol/L Invalid Interpretation Code 10 - 20 mmol/L [facility] Bicarbonate (HCO3) 27 mmol/L Invalid Interpretation Code 21 - 32 mmol/L [facility] BUN/Creatinine Ratio 10.1 mg/mg Invalid Interpretation Code 10.0 - 20.0 [facility] Calcium 10.6 mg/dL High 8.4 - 10.2 mg/dL [facility] Chloride 101 mmol/L Invalid Interpretation Code 98 - 108 mmol/L [facility] Creatinine 0.69 mg/dL Invalid Interpretation Code 0.4 - 1.1 mg/dL [facility] eGFR (non-black) 103 mL/min/{1.73_m2} Invalid Interpretation Code >=60 [facility] eGFR (non-black) The eGFR should be used for monitoring renal function only and not for medication dosing. Invalid Interpretation Code [facility] Glucose mass conc 105 mg/dL High 65 - 99 mg/dL [facility] Interpretation and review of laboratory results Abnormal Invalid Interpretation Code [facility] Potassium molar conc 4.1 mmol/L Invalid Interpretation Code 3.5 - 5.1 mmol/L [facility] Sodium 142 mmol/L Invalid Interpretation Code 135 - 145 mmol/L [facility] Urea nitrogen 7 mg/dL Low 8 - 25 mg/dL [facility] CBC Auto Differentialon 08-07 Basophils Auto #/vol (Bld) 0.08 K/mcL Invalid Interpretation Code 0.00 - 0.30 [facility] Basophils/100 WBC Auto (Bld) 0.6 % Invalid Interpretation Code [facility] Eosinophils 0.05 K/mcL Invalid Interpretation Code 0.00 - 0.50 [facility] Eosinophils/100 leukocytes 0.4 % Invalid Interpretation Code [facility] Erythrocyte distribution width Auto Entitic volume (RBC) 12.2 % Invalid Interpretation Code 11.6 - 14.8 % [facility] Erythrocytes (RBC) 4.60 M/mcL Invalid Interpretation Code 4.00 - 5.20 [facility] Hematocrit (HCT) 43.4 % Invalid Interpretation Code 36 - 46 % [facility] Hemoglobin mass conc (Bld) 15.2 g/dL Invalid Interpretation Code 12 - 16 g/dL [facility] Immature granulocytes #/vol (Bld) 0.05 K/mcL Invalid Interpretation Code 0.00 - 0.30 [facility] Immature granulocytes/100 WBC (Bld) 0.40 % Invalid Interpretation Code [facility] Comment on above: The IG parameter is the percentage of metamyelocytes, myelocytes, and promyelocytes. Lymphocytes 2.40 K/mcL Invalid Interpretation Code 0.90 - 4.00 [facility] Lymphocytes/100 leukocytes 18.1 % Invalid Interpretation Code [facility] MCH 33.0 pg Invalid Interpretation Code 26 - 34 pg [facility] MCHC mass conc (RBC) 35.0 g/dL Invalid Interpretation Code 31 - 37 g/dL [facility] MCV 94.3 fL Invalid Interpretation Code 80 - 100 fL [facility] Monocytes 0.85 K/mcL Invalid Interpretation Code 0.30 - 0.90 [facility] Monocytes/100 leukocytes 6.4 % Invalid Interpretation Code [facility] Neutrophils 9.81 K/mcL High 1.70 - 7.00 [facility] Neutrophils/100 WBC Auto (Bld) 74.1 % Invalid Interpretation Code [facility] Nucleated erythrocytes 0.00 K/mcL Invalid Interpretation Code 0.00 - 0.00 [facility] Nucleated erythrocytes/100 erythrocytes 0.0 % Invalid Interpretation Code [facility] Platelet mean volume (PMV) 10.0 fL Invalid Interpretation Code 9 - 15.5 fL [facility] Platelets 242 K/mcL Invalid Interpretation Code 150 - 400 [facility] WBC (Leukocytes) 13.24 K/mcL High 4.50 - 11.00 [facility] CBC w/ Diffon 08-24-2017 Creatinine The following orders were created for panel order CBC w/ Diff. Procedure Abnormality Status --------- ------ CBC Auto Differential[[id number] ] Abnormal Final result Please view results for these tests on the individual orders. Invalid Interpretation Code [facility] CT ABDOMEN PELVIS WITH IV CO NTRAST [...] and demonstrated a prominent signal loss on [id number] images on MRI performed 09/06/2014, compatible with [...] ThuAug 24, 2017 4:03:34 PM EDT Normal [facility] Comment on above: Order Comment: Reaso n [...] and demonstrated a prominent signal loss on [id number] images on MRI performed 09/06/2014, compatible with [...] probably remain. 5. Small left adrenal adenoma. [employer] Workstation ID: [id number] Invalid Interpretation Code [email or web address] [facility] CT Abdomen Pelvis With IV Contrast [...] and demonstrated a prominent signal loss on [id number] images on MRI performed 09/06/2014, compatible with [...] suspicious focal osseous lesions. Invalid Interpretation Code [employer] [facility] CT Abdomen Pelvis With IV Contrast [...] probably remain. 5. Small left adrenal adenoma. [employer] Workstation ID: [id number] Invalid Interpretation Code [employer] [facility] Hepatic Function Panel (LFT) on 08-24-2017 Alanine aminotransferase (ALT) 14 U/L Invalid Interpretation Code 0 - 40 U/L [facility] Albumin 4.7 g/dL Invalid Interpretation Code 3.2 - 5.2 g/dL [facility] Alkaline phosphatase (ALP) 91 U/L Invalid Interpretation Code 40 - 150 U/L [facility] Aspartate aminotransferase (AST) 17 U/L Invalid Interpretation Code 0 - 45 U/L [facility] Bilirubin (conjugated) mg/dL Invalid Interpretation Code 0 - 0.4 mg/dL [facility] Bilirubin (total) mg/dL Invalid Interpretation Code 0 - 1.3 mg/dL [facility] Interpretation and review of laboratory results Normal Invalid Interpretation Code [facility] Protein 7.4 g/dL Invalid Interpretation Code 6 - 8 g/dL [facility] Lactic Acid, Plasmaon 2017 Lactate 1.0 mmol/L Invalid Interpretation Code 0.6 - 2 mmol/L [facility] Light Blue Topon 08-24-2017 Extra Tube Hold for add-ons. Invalid Interpretation Code [facility] Comment on above: Auto resulted. Lipaseon 08-24-2017 Lipase 51 U/L Invalid Interpretation Code 15 - 65 U/L [facility] Learned Topon 08-24-2017 Learned Top Invalid Interpretation Code [facility] [place] Drawon 08-24-2017 Creatinine The following orders were created for panel order [place] Draw. Procedure Abnormality Status --------- ------ Gold Top[[id number]] Final result Light Blue Top[[id number]] Final result Learned Top[[id number]] Final result Please view results for these tests on the individual orders. Invalid Interpretation Code [facility] Urinalysison 08-24-2017 Bilirubin Ql (U) Negative Invalid Interpretation Code Negative [facility] Blood, Urine Negative Invalid Interpretation Code Negative [facility] Interpretation and review of laboratory results Abnormal Invalid Interpretation Code [facility] Nitrite, Urine Negative Invalid Interpretation Code Negative [facility] Squamous Epithelial 5 /hpf High 0 - 4 [facility] Transitional Epithelial <1 Invalid Interpretation Code 0 - 1 /hpf [facility] Urine, bacteria in sediment Rare Abnormal None Seen /hpf [facility] Urine, clarity Hazy Abnormal Clear [facility] Urine, color Yellow Invalid Interpretation Code Colorless, Yellow [facility] Urine, erythrocytes 1 /hpf Invalid Interpretation Code 0 - 3 [facility] Urine, glucose presence Negative Invalid Interpretation Code Negative mg/dL [facility] Urine, ketones presence Negative Invalid Interpretation Code Negative mg/dL [facility] Urine, leukocyte esterase presence Negative Invalid Interpretation Code Negative [facility] Urine, pH 7.0 [pH] Invalid Interpretation Code 5.0 - 7.0 [facility] Urine, protein Negative Invalid Interpretation Code Negative mg/dL [facility] Urine, specific gravity 1.006 1 Invalid Interpretation Code 1.005 - 1.025 [facility] Urine, urobilinogen <2.0 Invalid Interpretation Code <2.0 mg/dL [facility] WBCs, Urine 1 /hpf Invalid Interpretation Code 0 - 5 [facility] Urinalysis Microscopic examination is performed on all urinalysis samples and only positive findings are reported. The test for blood on the chemical analytic portion of urinalysis may also be positive due to hemoglobinuria and myoglobinuria and if red blood cells are present they are quantified by microscopic examination. Invalid Interpretation Code [facility] BMPon 06-09-2017 Anion gap 18 mmol/L Invalid Interpretation Code 10 - 20 mmol/L [facility] Bicarbonate (HCO3) 21 mmol/L Invalid Interpretation Code 21 - 32 mmol/L [facility] BUN/Creatinine Ratio 11.0 mg/mg Invalid Interpretation Code 10.0 - 20.0 [facility] Calcium 10.2 mg/dL Invalid Interpretation Code 8.4 - 10.2 mg/dL [facility] Chloride 102 mmol/L Invalid Interpretation Code 98 - 108 mmol/L [facility] Creatinine 0.73 mg/dL Invalid Interpretation Code 0.4 - 1.1 mg/dL [facility] eGFR (non-black) The eGFR should be used for monitoring renal function only and not for medication dosing. Invalid Interpretation Code [facility] eGFR (non-black) 98 mL/min/{1.73_m2} Invalid Interpretation Code >=60 [facility] Glucose 80 mg/dL Invalid Interpretation Code 65 - 99 mg/dL [facility] Potassium 4.3 mmol/L Invalid Interpretation Code 3.5 - 5.1 mmol/L [facility] Sodium 137 mmol/L Invalid Interpretation Code 135 - 145 mmol/L [facility] Urea nitrogen 8 mg/dL Invalid Interpretation Code 8 - 25 mg/dL [facility] CBC Auto Differentialon 04-0 Basophils 0.07 K/mcL Invalid Interpretation Code 0.00 - 0.30 [facility] Basophils/100 leukocytes 0.7 % Invalid Interpretation Code [facility] Eosinophils 0.10 K/mcL Invalid Interpretation Code 0.00 - 0.50 [facility] Eosinophils/100 leukocytes 1.0 % Invalid Interpretation Code [facility] Erythrocytes (RBC) 4.75 M/mcL Invalid Interpretation Code 4.00 - 5.20 [facility] Erythrocytes (RBC) 0.00 K/mcL Invalid Interpretation Code 0.00 - 0.00 [facility] Hematocrit (HCT) 46.1 % High 36 - 46 % [facility] Hemoglobin (HGB) 16.1 g/dL High 12 - 16 g/dL [facility] IG Absolute 0.02 K/mcL Invalid Interpretation Code 0.00 - 0.30 [facility] IG Percent 0.20 % Invalid Interpretation Code [facility] Lymphocytes 1.75 K/mcL Invalid Interpretation Code 0.90 - 4.00 [facility] Lymphocytes/100 leukocytes 17.9 % Invalid Interpretation Code [facility] MCH 33.9 pg Invalid Interpretation Code 26 - 34 pg [facility] MCHC 34.9 g/dL Invalid Interpretation Code 31 - 37 g/dL [facility] MCV 97.1 fL Invalid Interpretation Code 80 - 100 fL [facility] Monocytes 0.88 K/mcL Invalid Interpretation Code 0.30 - 0.90 [facility] Monocytes/100 leukocytes 9.0 % Invalid Interpretation Code [facility] Neutrophils 6.98 K/mcL Invalid Interpretation Code 1.70 - 7.00 [facility] Neutrophils/100 leukocytes 71.2 % Invalid Interpretation Code [facility] Nucleated erythrocytes/100 erythrocytes 0.0 % Invalid Interpretation Code [facility] Platelet mean volume (PMV) 10.9 fL Invalid Interpretation Code 9 - 15.5 fL [facility] Platelets 223 K/mcL Invalid Interpretation Code 150 - 400 [facility] RDW-CA 12.8 % Invalid Interpretation Code 11.6 - 14.8 % [facility] WBC (Leukocytes) 9.80 K/mcL Invalid Interpretation Code 4.50 - 11.00 [facility] Interpretation and review of laboratory results Abnormal Invalid Interpretation Code [facility] CBC w/ Diffon 06-09-2017 Creatinine The following orders were created for panel order CBC w/ Diff. Procedure Abnormality Status --------- ------ CBC Auto Differential[[id number] ] Abnormal Final result Please view results for these tests on the individual orders. Invalid Interpretation Code [facility] Hepatic Function Panel (LFT) on 06-09-2017 Alanine aminotransferase (ALT) 10 U/L Invalid Interpretation Code 0 - 40 U/L [facility] Albumin 4.4 g/dL Invalid Interpretation Code 3.2 - 5.2 g/dL [facility] Alkaline phosphatase (ALP) 89 U/L Invalid Interpretation Code 40 - 150 U/L [facility] Aspartate aminotransferase (AST) 20 U/L Invalid Interpretation Code 0 - 45 U/L [facility] Bilirubin (conjugated) mg/dL Invalid Interpretation Code 0 - 0.4 mg/dL [facility] Bilirubin (total) mg/dL Invalid Interpretation Code 0 - 1.3 mg/dL [facility] Interpretation and review of laboratory results Normal Invalid Interpretation Code [facility] Protein 7.3 g/dL Invalid Interpretation Code 6 - 8 g/dL [facility] Lipaseon 06-09-2017 Lipase 50 U/L Invalid Interpretation Code 15 - 65 U/L [facility] [place] Drawon 06-09-2017 Creatinine The following orders were created for panel order [place] Draw. Procedure Abnormality Status --------- ------ Urine Container[[id number]] Final result Please view results for these tests on the individual orders. Invalid Interpretation Code [facility] Urinalysison 06-09-2017 Bilirubin, Urine Negative Invalid Interpretation Code Negative [facility] Blood, Urine Negative Invalid Interpretation Code Negative [facility] Calcium Many Abnormal None Seen /hpf [facility] Mucus, Urine Rare Invalid Interpretation Code None Seen, Rare /lpf [facility] Nitrite, Urine Negative Invalid Interpretation Code Negative [facility] RBCs, Urine 1 /hpf Invalid Interpretation Code 0 - 3 [facility] Squamous Epithelial 4 /hpf Invalid Interpretation Code 0 - 4 [facility] Urine, bacteria in sediment None Seen Invalid Interpretation Code None Seen /hpf [facility] Urine, clarity Cloudy Abnormal Clear [facility] Urine, color Yellow Invalid Interpretation Code Colorless, Yellow [facility] Urine, glucose presence Negative Invalid Interpretation Code Negative mg/dL [facility] Urine, ketones presence Trace Abnormal Negative mg/dL [facility] Urine, leukocyte esterase presence Negative Invalid Interpretation Code Negative [facility] Urine, pH 5.0 [pH] Invalid Interpretation Code 5.0 - 7.0 [facility] Urine, protein Negative Invalid Interpretation Code Negative mg/dL [facility] Urine, specific gravity 1.024 1 Invalid Interpretation Code 1.005 - 1.025 [facility] Urine, urobilinogen 2.0 mg/dL Abnormal <2.0 [facility] WBCs, Urine 1 /hpf Invalid Interpretation Code 0 - 5 [facility] Urinalysis Microscopic examination is performed on all urinalysis samples and only positive findings are reported. The test for blood on the chemical analytic portion of urinalysis may also be positive due to hemoglobinuria and myoglobinuria and if red blood cells are present they are quantified by microscopic examination. Invalid Interpretation Code [facility] Urine Containeron 06-09-2017 Urine Container Invalid Interpretation Code [facility] CBCon 05-15-2017 Erythrocytes (RBC) 3.76 M/mcL Low 4.00 - 5.20 [facility] Erythrocytes (RBC) 0.00 K/mcL Invalid Interpretation Code 0.00 - 0.00 [facility] Hematocrit (HCT) 37.1 % Invalid Interpretation Code 36 - 46 % [facility] Hemoglobin (HGB) 12.4 g/dL Invalid Interpretation Code 12 - 16 g/dL [facility] MCH 33.0 pg Invalid Interpretation Code 26 - 34 pg [facility] MCHC 33.4 g/dL Invalid Interpretation Code 31 - 37 g/dL [facility] MCV 98.7 fL Invalid Interpretation Code 80 - 100 fL [facility] Nucleated erythrocytes/100 erythrocytes 0.0 % Invalid Interpretation Code [facility] Platelet mean volume (PMV) 9.9 fL Invalid Interpretation Code 9 - 15.5 fL [facility] Platelets 197 K/mcL Invalid Interpretation Code 150 - 400 [facility] RDW-CA 12.6 % Invalid Interpretation Code 11.6 - 14.8 % [facility] WBC (Leukocytes) 7.55 K/mcL Invalid Interpretation Code 4.50 - 11.00 [facility] Comprehensive Metabolic Pane demetrio 05-15-2017 Alanine aminotransferase (ALT) 9 U/L Invalid Interpretation Code 0 - 40 U/L [facility] Albumin 3.3 g/dL Invalid Interpretation Code 3.2 - 5.2 g/dL [facility] Alkaline phosphatase (ALP) 73 U/L Invalid Interpretation Code 40 - 150 U/L [facility] Anion gap 15 mmol/L Invalid Interpretation Code 10 - 20 mmol/L [facility] Aspartate aminotransferase (AST) 13 U/L Invalid Interpretation Code 0 - 45 U/L [facility] Bicarbonate (HCO3) 23 mmol/L Invalid Interpretation Code 21 - 32 mmol/L [facility] Bilirubin (total) 0.2 mg/dL Invalid Interpretation Code 0 - 1.3 mg/dL [facility] BUN/Creatinine Ratio 9.4 mg/mg Low 10.0 - 20.0 [facility] Calcium 8.4 mg/dL Invalid Interpretation Code 8.4 - 10.2 mg/dL [facility] Chloride 108 mmol/L Invalid Interpretation Code 98 - 108 mmol/L [facility] Creatinine 0.64 mg/dL Invalid Interpretation Code 0.4 - 1.1 mg/dL [facility] eGFR (non-black) The eGFR should be used for monitoring renal function only and not for medication dosing. Invalid Interpretation Code [facility] eGFR (non-black) 107 mL/min/{1.73_m2} Invalid Interpretation Code >=60 [facility] Glucose 91 mg/dL Invalid Interpretation Code 65 - 99 mg/dL [facility] Potassium 4.0 mmol/L Invalid Interpretation Code 3.5 - 5.1 mmol/L [facility] Protein 5.3 g/dL Low 6 - 8 g/dL [facility] Sodium 142 mmol/L Invalid Interpretation Code 135 - 145 mmol/L [facility] Urea nitrogen 6 mg/dL Low 8 - 25 mg/dL [facility] Lipaseon 05-15-2017 Interpretation and review of laboratory results Normal Invalid Interpretation Code [facility] Lipase 31 U/L Invalid Interpretation Code 15 - 65 U/L [facility] Lipid Panelon 05-15-2017 Cholesterol 193 mg/dL Invalid Interpretation Code 100 - 199 mg/dL [facility] Cholesterol to HDL Ratio 7.1 {ratio} Invalid Interpretation Code [facility] HDL Cholesterol 27 mg/dL Low 40 - 59 mg/dL [facility] HDL Cholesterol 166 mg/dL Invalid Interpretation Code [facility] Interpretation and review of laboratory results Abnormal Invalid Interpretation Code [facility] LDL Cholesterol 108 mg/dL Invalid Interpretation Code 10 - 130 mg/dL [facility] Triglyceride 291 mg/dL High 30 - 150 mg/dL [facility] BMPon 05-14-2017 Anion gap 18 mmol/L Invalid Interpretation Code 10 - 20 mmol/L [facility] Bicarbonate (HCO3) 25 mmol/L Invalid Interpretation Code 21 - 32 mmol/L [facility] BUN/Creatinine Ratio 11.8 mg/mg Invalid Interpretation Code 10.0 - 20.0 [facility] Calcium 10.7 mg/dL High 8.4 - 10.2 mg/dL [facility] Chloride 102 mmol/L Invalid Interpretation Code 98 - 108 mmol/L [facility] Creatinine 0.68 mg/dL Invalid Interpretation Code 0.4 - 1.1 mg/dL [facility] eGFR (non-black) The eGFR should be used for monitoring renal function only and not for medication dosing. Invalid Interpretation Code [facility] eGFR (non-black) 105 mL/min/{1.73_m2} Invalid Interpretation Code >=60 [facility] Glucose 86 mg/dL Invalid Interpretation Code 65 - 99 mg/dL [facility] Potassium 4.0 mmol/L Invalid Interpretation Code 3.5 - 5.1 mmol/L [facility] Sodium 141 mmol/L Invalid Interpretation Code 135 - 145 mmol/L [facility] Urea nitrogen 8 mg/dL Invalid Interpretation Code 8 - 25 mg/dL [facility] CBC Auto Differentialon 03-0 Basophils 0.09 K/mcL Invalid Interpretation Code 0.00 - 0.30 [facility] Basophils/100 leukocytes 0.8 % Invalid Interpretation Code [facility] Eosinophils 0.08 K/mcL Invalid Interpretation Code 0.00 - 0.50 [facility] Eosinophils/100 leukocytes 0.7 % Invalid Interpretation Code [facility] Erythrocytes (RBC) 0.00 K/mcL Invalid Interpretation Code 0.00 - 0.00 [facility] Erythrocytes (RBC) 4.96 M/mcL Invalid Interpretation Code 4.00 - 5.20 [facility] Hematocrit (HCT) 48.5 % High 36 - 46 % [facility] Hemoglobin (HGB) 16.6 g/dL High 12 - 16 g/dL [facility] IG Absolute 0.04 K/mcL Invalid Interpretation Code 0.00 - 0.30 [facility] IG Percent 0.40 % Invalid Interpretation Code [facility] Interpretation and review of laboratory results Abnormal Invalid Interpretation Code [facility] Lymphocytes 1.89 K/mcL Invalid Interpretation Code 0.90 - 4.00 [facility] Lymphocytes/100 leukocytes 17.7 % Invalid Interpretation Code [facility] MCH 33.5 pg Invalid Interpretation Code 26 - 34 pg [facility] MCHC 34.2 g/dL Invalid Interpretation Code 31 - 37 g/dL [facility] MCV 97.8 fL Invalid Interpretation Code 80 - 100 fL [facility] Monocytes 0.74 K/mcL Invalid Interpretation Code 0.30 - 0.90 [facility] Monocytes/100 leukocytes 6.9 % Invalid Interpretation Code [facility] Neutrophils 7.86 K/mcL High 1.70 - 7.00 [facility] Neutrophils/100 leukocytes 73.5 % Invalid Interpretation Code [facility] Nucleated erythrocytes/100 erythrocytes 0.0 % Invalid Interpretation Code [facility] Platelet mean volume (PMV) 9.8 fL Invalid Interpretation Code 9 - 15.5 fL [facility] Platelets 275 K/mcL Invalid Interpretation Code 150 - 400 [facility] RDW-CA 12.8 % Invalid Interpretation Code 11.6 - 14.8 % [facility] WBC (Leukocytes) 10.70 K/mcL Invalid Interpretation Code 4.50 - 11.00 [facility] CBC w/ Diffon 05-14-2017 Creatinine The following orders were created for panel order CBC w/ Diff. Procedure Abnormality Status --------- ------ CBC Auto Differential[[id number] ] Abnormal Final result Please view results for these tests on the individual orders. Invalid Interpretation Code [facility] CT ABDOMEN PELVIS WITH IV CO NTRAST [...] appendix in the left lower pelvis.Workstation ID: [id number] by: ERROL ANN on ThuMay 14, 2017 4:08:10 PM ESTTranscribed by: ERROL ANN on ThuMay 14, 2017 4:08:10 PM ESTFinalized by: ERROL ANN on ThuMay 14, 2017 4:08:10 PM EST Normal [facility] Comment on above: Order Comment: Reaso n [...] at L1-L2 and L4-L5. Invalid Interpretation Code [employer] [facility] CT Abdomen Pelvis With IV Contrast Only Interface, Rad In [employer] - 05/14/2017 4:10 PM EST EXAMINATION: CT [...] in the left lower pelvis. Workstation ID: [id number] Invalid Interpretation Code [employer] [facility] CT Abdomen Pelvis With IV Contrast [...] in the left lower pelvis. Workstation ID: [id number] Invalid Interpretation Code [employer] [facility] Ruff Topon 05-14-2017 Extra Tube Hold for add-ons. Invalid Interpretation Code [facility] Hepatic Function Panel (LFT) on 05-14-2017 Alanine aminotransferase (ALT) 13 U/L Invalid Interpretation Code 0 - 40 U/L [facility] Albumin 4.8 g/dL Invalid Interpretation Code 3.2 - 5.2 g/dL [facility] Alkaline phosphatase (ALP) 102 U/L Invalid Interpretation Code 40 - 150 U/L [facility] Aspartate aminotransferase (AST) 20 U/L Invalid Interpretation Code 0 - 45 U/L [facility] Bilirubin (conjugated) mg/dL Invalid Interpretation Code 0 - 0.4 mg/dL [facility] Bilirubin (total) 0.2 mg/dL Invalid Interpretation Code 0 - 1.3 mg/dL [facility] Interpretation and review of laboratory results Normal Invalid Interpretation Code [facility] Protein 7.9 g/dL Invalid Interpretation Code 6 - 8 g/dL [facility] Lipaseon 05-14-2017 Lipase 137 U/L High 15 - 65 U/L [facility] Learned Topon 05-14-2017 Learned Top Invalid Interpretation Code [facility] [place] Draw[place] 05-14-2017 Creatinine The following orders were created for panel order [place] Draw. Procedure Abnormality Status --------- ------ Gold Top[[id number]] Final result Light Blue Top[[id number]] Final result Ruff Top[[id number]] Final result Learned Top[[id number]] Final result Please view results for these tests on the individual orders. Invalid Interpretation Code [facility] Urinalysison 05-14-2017 Bilirubin, Urine Negative Invalid Interpretation Code Negative [facility] Blood, Urine Negative Invalid Interpretation Code Negative [facility] Interpretation and review of laboratory results Abnormal Invalid Interpretation Code [facility] Mucus, Urine Rare Invalid Interpretation Code None Seen, Rare /lpf [facility] Nitrite, Urine Negative Invalid Interpretation Code Negative [facility] RBCs, Urine 2 /hpf Invalid Interpretation Code 0 - 3 [facility] Squamous Epithelial 3 /hpf Invalid Interpretation Code 0 - 4 [facility] Urine, bacteria in sediment Rare Abnormal None Seen /hpf [facility] Urine, clarity Clear Invalid Interpretation Code Clear [facility] Urine, color Yellow Invalid Interpretation Code Colorless, Yellow [facility] Urine, glucose presence Negative Invalid Interpretation Code Negative mg/dL [facility] Urine, ketones presence Negative Invalid Interpretation Code Negative mg/dL [facility] Urine, leukocyte esterase presence Negative Invalid Interpretation Code Negative [facility] Urine, pH 5.0 [pH] Invalid Interpretation Code 5.0 - 7.0 [facility] Urine, protein Negative Invalid Interpretation Code Negative mg/dL [facility] Urine, specific gravity 1.006 1 Invalid Interpretation Code 1.005 - 1.025 [facility] Urine, urobilinogen <2.0 Invalid Interpretation Code <2.0 mg/dL [facility] WBCs, Urine 1 /hpf Invalid Interpretation Code 0 - 5 [facility] Urinalysis Microscopic examination is performed on all urinalysis samples and only positive findings are reported. The test for blood on the chemical analytic portion of urinalysis may also be positive due to hemoglobinuria and myoglobinuria and if red blood cells are present they are quantified by microscopic examination. Invalid Interpretation Code [facility] Vital Signs Date Time Vital Sign Value Performing Clinician Facility 11-09-2022 16:30-0400 Diastolic blood pressure 81 mm[Hg] [facility] 11-09-2022 16:30-0400 Heart rate 78 /min [facility] 11-09-2022 16:30-0400 Respiratory rate 18 /min [facility] 11-09-2022 16:30-0400 SaO2% (BldA) [Mass fraction] 99 % [facility] 11-09-2022 16:30-0400 Systolic blood pressure 141 mm[Hg] [facility] 11-09-2022 13:47-0400 Body height 160.02 cm [facility] 11-09-2022 13:47-0400 Body temperature 98.2 [degF] [facility] 11-09-2022 13:47-0400 Body weight 54.2 kg [facility] 08-12-2022 13:15-0400 Diastolic blood pressure 68 mm[Hg] Sabrina Dee MD, MPH Work Phone: [facility] 08-12-2022 13:15-0400 Heart rate 67 /min Sabrina Dee MD, MPH Work Phone: [facility] 08-12-2022 13:15-0400 Respiratory rate 22 /min Sabrina Dee MD, MPH Work Phone: [facility] 08-12-2022 13:15-0400 SaO2% (BldA) [Mass fraction] 99 % Sabrina Dee MD, MPH Work Phone: [facility] 08-12-2022 13:15-0400 Systolic blood pressure 142 mm[Hg] Sabrina Dee MD, MPH Work Phone: [facility] 08-12-2022 11:45-0400 Body temperature 97.81 [degF] Sabrina Dee MD, MPH Work Phone: [facility] 08-12-2022 10:34-0400 Body height 157.5 cm Sabrina Dee MD, MPH Work Phone: [facility] 06-16-2022 10:52-0400 Body mass index (BMI) [Ratio] 23.41 kg/m2 Sabrina Dee MD, MPH Work Phone: [facility] 06-16-2022 10:52-0400 Body weight 58.06 kg Sabrina Dee MD, MPH Work Phone: [facility] 06-16-2022 10:52-0400 Diastolic blood pressure 68 mm[Hg] Sabrina Dee MD, MPH Work Phone: [facility] 06-16-2022 10:52-0400 Heart rate 83 /min Sabrina Dee MD, MPH Work Phone: [facility] 06-16-2022 10:52-0400 SaO2% (BldA) [Mass fraction] 98 % Sabrina Dee MD, MPH Work Phone: [facility] 06-16-2022 10:52-0400 Systolic blood pressure 122 mm[Hg] Sabrina Dee MD, MPH Work Phone: [facility] 03-22-2022 16:51-0500 Diastolic blood pressure 61 mm[Hg] [facility] 03-22-2022 16:51-0500 Heart rate 98 /min [facility] 03-22-2022 16:51-0500 Respiratory rate 20 /min [facility] 03-22-2022 16:51-0500 SaO2% (BldA) [Mass fraction] 98 % [facility] 03-22-2022 16:51-0500 Systolic blood pressure 149 mm[Hg] [facility] 03-22-2022 14:59-0500 Body height 157.48 cm [facility] 03-22-2022 14:59-0500 Body temperature 97.9 [degF] [facility] 03-22-2022 14:59-0500 Body weight 56 kg [facility] 12-16-2021 11:53-0400 Body height 157.5 cm Sabrina Dee MD, MPH Work Phone: [facility] 12-16-2021 11:53-0400 Body mass index (BMI) [Ratio] 22.5 kg/m2 Sabrina Dee MD, MPH Work Phone: [facility] 12-16-2021 11:53-0400 Body weight 55.79 kg Sabrina Dee MD, MPH Work Phone: [facility] 12-16-2021 11:53-0400 Diastolic blood pressure 72 mm[Hg] Sabrina Dee MD, MPH Work Phone: [facility] 12-16-2021 11:53-0400 Heart rate 80 /min Sabrina Dee MD, MPH Work Phone: [facility] 12-16-2021 11:53-0400 SaO2% (BldA) [Mass fraction] 98 % Sabrina Dee MD, MPH Work Phone: [facility] 12-16-2021 11:53-0400 Systolic blood pressure 118 mm[Hg] Sabrina Dee MD, MPH Work Phone: [facility] 10-09-2021 20:00-0400 Body temperature 98.3 [degF] [facility] 10-09-2021 20:00-0400 Diastolic blood pressure 68 mm[Hg] [facility] 10-09-2021 20:00-0400 Heart rate 86 /min [facility] 10-09-2021 20:00-0400 Respiratory rate 20 /min [facility] 10-09-2021 20:00-0400 SaO2% (BldA) [Mass fraction] 100 % [facility] 10-09-2021 20:00-0400 Systolic blood pressure 110 mm[Hg] [facility] 10-09-2021 14:19-0400 Body height 157.48 cm [facility] 10-09-2021 14:19-0400 Body weight 56.69 kg [facility] 10-04-2021 19:00-0400 Diastolic blood pressure 66 mm[Hg] [facility] 10-04-2021 19:00-0400 Heart rate 72 /min [facility] 10-04-2021 19:00-0400 Respiratory rate 16 /min [facility] 10-04-2021 19:00-0400 SaO2% (BldA) [Mass fraction] 96 % [facility] 10-04-2021 19:00-0400 Systolic blood pressure 110 mm[Hg] [facility] 10-04-2021 15:16-0400 Body temperature 97.9 [degF] [facility] 10-04-2021 15:15-0400 Body height 157.48 cm [facility] 10-04-2021 15:15-0400 Body weight 54.5 kg [facility] 09-25-2021 19:58-0400 Heart rate 82 /min [facility] 09-25-2021 18:04-0400 Body temperature 98.1 [degF] [facility] 09-25-2021 18:00-0400 Body height 157.48 cm [facility] 09-25-2021 18:00-0400 Body weight 55.5 kg [facility] 09-25-2021 18:00-0400 Diastolic blood pressure 107 mm[Hg] [facility] 09-25-2021 18:00-0400 Respiratory rate 18 /min [facility] 09-25-2021 18:00-0400 SaO2% (BldA) [Mass fraction] 98 % [facility] 09-25-2021 18:00-0400 Systolic blood pressure 141 mm[Hg] [facility] 08-11-2021 18:12-0400 Heart rate 86 /min [facility] 08-11-2021 18:00-0400 Diastolic blood pressure 69 mm[Hg] [facility] 08-11-2021 18:00-0400 Respiratory rate 20 /min [facility] 08-11-2021 18:00-0400 SaO2% (BldA) [Mass fraction] 98 % [facility] 08-11-2021 18:00-0400 Systolic blood pressure 114 mm[Hg] [facility] 08-11-2021 16:06-0400 Body height 170.18 cm [facility] 08-11-2021 16:06-0400 Body mass index (BMI) [Ratio] 19.6 kg/m2 [facility] 08-11-2021 16:06-0400 Body temperature 97.9 [degF] [facility] 08-11-2021 16:06-0400 Body weight 57 kg [facility] 03-19-2021 14:30-0500 Body height 157.48 cm Marya Ginty Other [facility] Other 03-19-2021 14:30-0500 Body mass index (BMI) [Ratio] 24.69 kg/m2 Marya Ginty Other [employer] Other 03-19-2021 14:30-0500 Body temperature 96 [degF] Marya Ginty Other [employer] Other 03-19-2021 14:30-0500 Body weight 61.24 kg Marya Ginty Other [employer] Other 03-19-2021 14:30-0500 Respiratory rate 63 /min Marya Ginty Other [employer] Other 03-19-2021 14:30-0500 SaO2% (BldA) [Mass fraction] 97 % Marya Almonte Other [employer] Other 03-26-2020 21:05-0500 Pulse Oximetry 100 % [facility] [place] 03-26-2020 21:01-0500 BP Diastolic 68 mm[Hg] [facility] [place] 03-26-2020 21:01-0500 BP Systolic 152 mm[Hg] [facility] [place] 03-26-2020 17:32-0500 BMI (Body Mass Index) 22.86 kg/m2 [facility] 03-26-2020 17:32-0500 Body weight 56.7 kg [facility] [place] 03-26-2020 17:32-0500 Height 157.5 cm [place] 03-26-2020 17:32-0500 Pulse (Heart Rate) 90 /min [facility] 03-26-2020 17:32-0500 Respiratory Rate 18 /min [facility] [place] 03-26-2020 12:39-0500 Body Temperature 98.71 [degF] [facility] [place] 08-25-2019 08:30-0400 Body Temperature 98.01 [degF] Rajeev [facility] [employer] [place] 08-25-2019 08:30-0400 BP Diastolic 75 mm[Hg] [facility]ev [facility] [place] 08-25-2019 08:30-0400 BP Systolic 117 mm[Hg] Rajeev [facility] , [place] 08-25-2019 08:30-0400 Pulse (Heart Rate) 84 /min Rajeev [facility] [place] 08-25-2019 08:30-0400 Pulse Oximetry 97 % Rajeev [facility] , [place] 08-25-2019 08:30-0400 Respiratory Rate 16 /min Rajeev [facility] [employer] [place] 08-25-2019 05:30-0400 BMI (Body Mass Index) 25.88 kg/m2 Rajeev [facility] [place] 08-25-2019 05:30-0400 Body weight 64.18 kg Rajeev Tinoco [place] 08-22-2019 16:00-0400 Height 157.5 cm [facility] [place] [place] 03-04-2018 13:09-0500 BP Diastolic 69 mm[Hg] [facility] 03-04-2018 13:09-0500 BP Systolic 108 mm[Hg] [facility] 03-04-2018 13:09-0500 Pulse (Heart Rate) 79 /min [facility] 03-04-2018 13:09-0500 Pulse Oximetry 99 % [facility] 03-04-2018 13:09-0500 Respiratory Rate 16 /min [facility] 03-04-2018 11:01-0500 BMI (Body Mass Index) 22.86 kg/m2 [facility] 03-04-2018 11:01-0500 Body Temperature 98.6 [degF] [facility] 03-04-2018 11:01-0500 Height 157.5 cm [facility] 03-04-2018 11:01-0500 Weight 56.7 kg [facility] 08-24-2017 20:58-0400 BP Diastolic 64 mm[Hg] Errol [facility] 08-24-2017 20:58-0400 BP Systolic 126 mm[Hg] [facility] 08-24-2017 20:58-0400 Pulse (Heart Rate) 67 /min Errol [facility] 08-24-2017 20:58-0400 Pulse Oximetry 98 % [facility] 08-24-2017 20:58-0400 Respiratory Rate 18 /min [facility] 08-24-2017 13:41-0400 BMI (Body Mass Index) 21.58 kg/m2 [facility] 08-24-2017 13:41-0400 Body Temperature 98.29 [degF] [facility] 08-24-2017 13:41-0400 Height 157.5 cm Errol [facility] 08-24-2017 13:41-0400 Weight 53.52 kg Errol Walton [facility] 06-09-2017 09:32-0400 BP Diastolic 73 mm[Hg] Joana Mendes [facility] 06-09-2017 09:32-0400 BP Systolic 106 mm[Hg] Joana Vaughn [facility] 06-09-2017 09:32-0400 Pulse (Heart Rate) 86 /min Joana Vaughn [facility] 06-09-2017 09:32-0400 Pulse Oximetry 99 % Joana Vaughn [facility] 06-09-2017 09:32-0400 Respiratory Rate 16 /min Joana Vaughn [facility] 06-09-2017 07:20-0400 BMI (Body Mass Index) 21.87 kg/m2 Joana [facility] 06-09-2017 07:20-0400 Body Temperature 98.4 [degF] Joana Vaughn [facility] 06-09-2017 07:20-0400 Height 157.5 cm Joana Vaughn [facility] 06-09-2017 07:20-0400 Weight 54.23 kg Joana [facility] 05-15-2017 08:11-0500 Body Temperature 98.01 [degF] David Paige [facility] 05-15-2017 08:11-0500 BP Diastolic 69 mm[Hg] David [facility] 05-15-2017 08:11-0500 BP Systolic 116 mm[Hg] David [facility] 05-15-2017 08:11-0500 Pulse (Heart Rate) 76 /min David [facility] 05-15-2017 08:11-0500 Pulse Oximetry 95 % David [facility] 05-15-2017 08:11-0500 Respiratory Rate 15 /min David Paige [facility] 05-14-2017 12:58-0500 BMI (Body Mass Index) 21.95 kg/m2 David [facility] 05-14-2017 12:58-0500 Height 157.5 cm [facility] 05-14-2017 12:58-0500 Weight 54.43 kg David [facility] Encounters Encounter Date Encounter Type Care Provider Facility Start: 11-09-2022 End: 11-09-2022 Emergency department patient visit Nicole Posadas Facility:[facility] Start: 11-09-2022 End: 11-09-2022 Emergency department patient visit [facility] Work Phone: Start: 08-12-2022 ambulatory OTHER [facility] Facility:[facility] Start: 08-12-2022 End: 08-12-2022 Subsequent hospital visit by physician Sabrina Dee MD, MPH Work Phone: [facility] Start: 06-16-2022 ambulatory [facility] Facility:[facility] Start: 06-16-2022 End: 06-16-2022 Office outpatient visit 40 minutes Sabrina Dee MD, MPH Work Phone: [facility] [place] Comment on above: Osteoporosis without current pathological fracture, unspecified osteoporosis type (Primary Dx); Alcohol-induced chronic pancreatitis Start: 06-13-2022 End: 06-13-2022 ambulatory ARIC JANUSZ . Facility:[facility] Start: 03-29-2022 End: 03-29-2022 ambulatory ELENITA ROLLINS . Facility: Start: 03-22-2022 End: 03-22-2022 Emergency department patient visit Agustin Llanes Facility:[facility] Start: 03-22-2022 End: 03-22-2022 Emergency department patient visit [facility] Work Phone: Start: 03-19-2022 End: 03-19-2022 ambulatory MONIK PARKINSON . Facility: Start: 01-28-2022 ambulatory SABRINA hamiltonty:[facility] Start: 01-28-2022 End: 01-28-2022 Subsequent hospital visit by physician Sabrina Dee MD, MPH Work Phone: [facility] Start: 01-27-2022 ambulatory [facility] Facility:[facility] Start: 01-27-2022 End: 01-27-2022 Subsequent hospital visit by physician Sabrina Dee MD, MPH Work Phone: [facility] [place] Comment on above: Arrived Start: 01-15-2022 End: 01-15-[address] HELLEN KITCHEN . Facility: Start: 12-19-2021 End: 12-19-2021 Emergency department patient visit Robb Burris Facility:[facility] Start: 12-16-2021 ambulatory [facility] Facility:[facility] Start: 12-16-2021 End: 12-16-2021 Office outpatient visit 25 minutes Sabrina Dee MD, MPH Work Phone: [facility] [place] Comment on above: Recurrent acute panc reatitis (Primary Dx); History of smoking 25-50 pack years; Alcohol-induced chronic pancreatitis; Epigastric pain; Encounter for screening colonoscopy Start: 12-13-2021 End: 12-14-2021 ambulatory NICK COY Facility:[facility] Start: 12-05-2021 End: 12-05-[address] RAJEEV COATES Facility:[facility] Start: 10-11-2021 End: 10-12-[address] RAJEEV COATES Facility:[facility] Start: 10-04-2021 End: 10-04-2021 Emergency department patient visit [facility] Start: 09-30-2021 End: 09-30-2021 ambulatory NAT MAXWELL . Facility:[facility] Start: 09-25-2021 End: 09-25-2021 Emergency department patient visit [facility] Start: 09-17-2021 End: 09-17-[address] RAJEEV COATES Facility:[facility] Start: 08-26-2021 End: 08-26-2021 ambulatory NICK COY Facility:[facility] Start: 08-22-2021 End: 08-22-[address] TRI HANSON Facility:[facility] Start: 08-13-2021 End: 08-13-2021 ambulatory AGUSTIN MADRIGAL Facility:[facility] Start: 08-11-2021 End: 08-11-2021 Emergency department patient visit [facility] Start: 07-31-2021 End: 07-31-2021 ambulatory YANNI FRASER Facility:[facility] Start: 07-19-2021 End: 07-19-2021 ambulatory LYNNE PERDOMO Facility:[facility] Start: 03-19-2021 End: 03-19-2021 ambulatory Marya Almonte Other [employer] Other Start: 03-19-2021 Office outpatient visit 15 minutes Marya Almonte [facility] Start: 05-22-2020 End: 05-22-2020 Orders Only Izabela Queen Rudy Work Phone: [facility] Start: 03-26-2020 Emergency department patient [facility] Start: 03-26-2020 End: 03-26-2020 Emergency department patient visit [facility] ED Comment on above: Acute biliary pancre atitis, unspecified complication status (Primary Dx) Start: 08-22-2019 End: 08-25-2019 Evaluation and management of inpatient [facility] Start: 08-22-2019 End: 08-25-2019 Evaluation and management of inpatient Rajeev Rudy [facility] Work Phone: [facility] Comment on above: Acute pancreatitis, unspecified complication status, unspecified pancreatitis type (Primary Dx); Pain of upper abdomen Start: 03-08-2018 End: 03-09-2018 Evaluation and management of inpatient [facility] Start: 03-04-2018 End: 03-04-2018 Patient encounter procedure [facility] Start: 03-04-2018 End: 03-04-2018 Emergency department patient visit Keerthi Britoon Work Phone: [phone] [place] [address] Emergency Department Comment on above: Acute on chronic see creatitis (HCC) (Primary Dx) Start: 08-24-2017 End: 08-24-2017 Emergency department patient visit [facility] Start: 08-24-2017 End: 08-24-2017 Emergency department patient visit Errol Walton Work Phone: [facility] Start: 06-09-2017 End: 06-09-2017 Emergency department patient visit [facility] Start: 06-09-2017 End: 06-09-2017 Emergency department patient visit Joana Mendes Work Phone: [facility] Start: 05-14-2017 End: 05-15-2017 Patient encounter procedure [facility] Start: 05-14-2017 End: 05-15-2017 Emergency department patient visit David Gibson Work Phone: [facility] Medical Observation Procedures Date Procedure Procedure Detail [...] Dee MD, MPH [address] [place] [address] [facility] Start: 11-07-2022 Influenza vaccination INFLUENZA VACCINE (Season Ended) [facility] Start: 09-25-2022 Lipid panel LIPID SCREENING [facility] Start: 07-29-2022 End: 06-17-2023 UPPER EUS UPPER EUS GI/Bronch Routine Alcohol-induced chronic pancreatitis Expected: 07/29/2022, Expires: 06/17/2023 [facility] Comment on above: Expected: 07/29/2022, Expires: 4 Start: 07-28-2022 End: 01-28-2023 Screening colonoscopy SCREENING COLONOSCOPY GI/Bronch Routine Encounter for screening colonoscopy Expected: 07/28/2022, Expires: 01/28/2023 [facility] Comment on above: Expected: 07/28/2022, Expires: 3 Start: 07-28-2022 End: 07-28-2022 Patient encounter procedure 07/28/2022 Appointment Endoscopy Julia Tyler MD [address] [address] [facility] Department Start: 06-16-2022 End: 12-16-2022 Screening colonoscopy SCREENING COLONOSCOPY GI/Bronch Routine Encounter for screening colonoscopy Expected: 06/16/2022, Expires: 12/16/2022 [facility] Comment on above: Expected: 06/16/2022, Expires: 3 Start: 06-16-2022 End: 06-16-2022 Patient encounter procedure 06/16/2022 Office Visit Gastroenterology Sabrina Dee MD, MPH [address] [place] [address] [facility] Start: 03-22-2022 Bacteria identified in Urine by Culture [facility] Start: 01-28-2022 End: 01-28-2022 Patient encounter procedure 01/28/2022 Appointment Endoscopy Sabrina Dee MD, MPH [address] [place] [address] [facility] Start: 01-28-2022 Subsequent hospital visit by physician 01/28/2022 Hospital Encounter Endoscopy Sabrina Dee MD, MPH [address] [place] [address] Arrived [facility] Comment on above: Arrived Start: 01-14-2022 End: 12-16-2022 UPPER EUS UPPER EUS GI/Bronch Routine Recurrent acute pancreatitis Expected: 01/14/2022, Expires: 12/16/2022 [facility] Comment on above: Expected: 01/14/2022, Expires: 3 Start: 12-16-2021 End: 12-16-2022 Bone density scan BONE DENSITY AXIAL (HIP, PELVIS, SPINE) Imaging Routine Recurrent acute pancreatitis History of smoking 25-50 pack years Expected: 12/16/2021, Expires: 12/16/2022 [facility] Comment on above: Expected: 12/16/2021, Expires: 3 Start: 11-07-2021 Influenza vaccination INFLUENZA VACCINE (#1) [facility] Start: 10-09-2021 CT of abdomen and pelvis without contrast CT abdomen pelvis wo [facility] Start: 10-09-2021 End: 10-09-2021 Emergency department patient visit [facility]arted [facility] Start: 11-13-2020 COVID-19 VACCINE (3 - Booster for Pfizer series) COVID-19 VACCINE (3 - Booster for Pfizer series) [facility] Start: 11-08-2019 Influenza vaccination [place] Start: 11-08-2019 Influenza vaccination given Sequential Influenza Vaccine (#1) [facility] Start: 06-21-2019 Administration of herpes zoster vaccine Zoster Vaccines (1 of 2) [facility] Start: 06-21-2019 Screening for malignant neoplasm of breast Breast cancer screen [place] Start: 06-21-2019 Screening for malignant neoplasm of colon [place] Start: 06-21-2019 Screening for malignant neoplasm of lung LUNG CANCER SCREENING [facility] Start: 06-21-2019 Shingles Vaccine (1 of 2) Shingles Vaccine (1 of 2) [place] Start: 06-21-2019 Zoster vaccine hzv live for subcutaneous use ZOSTER (SHINGLES) VACCINE (1 of 2) [facility] Start: 11-07-2017 Influenza vaccination [facility] Start: 11-07-2016 Influenza vaccination SEQUENTIAL INFLUENZA VACCINE (#1) [facility] Start: 12-10-2014 Screening for malignant neoplasm of cervix PAP SMEAR [facility] Start: 2014 Screening for malignant neoplasm of colon COLORECTAL CANCER SCREENING DISCUSSION [facility] Start: 01-01-2013 Screening for malignant neoplasm of breast MAMMOGRAM SCREENING DISCUSSION [facility] Start: 01-01-2013 Screening mammography Mammogram [facility] Start: 2009 Lipid panel Lipid screen [place] Start: 1990 Screening for malignant neoplasm of cervix [facility] Start: 1988 DTaP/Tdap/Td vaccine (1 - Tdap) DTaP/Tdap/Td vaccine (1 - Tdap) [place] Start: 1988 Third diphtheria, tetanus and acellular pertussis (DTaP) vaccination TDAP (ADULT) [facility] Start: 06-21-1987 Hepatitis C antibody, confirmatory test Hepatitis C Screening [facility] Start: 06-21-1987 Tetanus vaccination TETANUS [facility] Start: 1985 COVID-19 Vaccine (1 of 2) COVID-19 Vaccine (1 of 2) [facility] Start: 1984 HIV screening [facility] Start: 06-21-1975 Pneumococcal 0-64 years Vaccine (1 of 1 - PPSV23) Pneumococcal 0-64 years Vaccine (1 of 1 - PPSV23) [place] Start: 06-21-1975 PNEUMOCOCCAL VACCINE SERIES (1 - PCV) PNEUMOCOCCAL VACCINE SERIES (1 - PCV) [facility] Start: 1972 History and physical examination, annual for health maintenance Wellness Visit [facility] Start: 1969 Hepatitis B vaccination HEP B VACCINE (1 of 3 - 3-dose series) [facility] Start: 1969 Hepatitis C screening [facility] Start: 1969 Tetanus vaccination [facility] CBC auto differential CBC auto d ifferential Lab Routine Daily until discontinued starting 08/23/2019, 3 completed [place] Comment on above: Daily until discontinued starting 2019, [address] ABDOMEN PELVIS W IV CONTRAST Additional Contrast? None CT ABDOMEN PELVIS W IV CONTRAST Additional Contrast? None Imaging STAT 03/26/2020 3:01 PM EST [place] IgG Subclasses IgG Subclasses A dd-On 05/14/2017 2:06 PM EST [facility] Initiate Oxygen Therapy Protocol Initiate Oxygen Therapy Protocol Respiratory Care Routine Daily until discontinued starting 08/22/2019 [place] Comment on above: Daily until discontinued starting 2019 Lipase Lipase Lab Routi ne Daily until discontinued starting 08/23/2019, 3 completed [place] Comment on above: Daily until discontinued starting 2019, 3 completed Patient Education [facility] Work Phone: Patient referral [facility] Work Phone: End: 08-22-2019 Pulse Oximetry Spot Check Pulse Oximetry Spot Check Respiratory Care Routine One Time for 1 Occurrences starting 08/22/2019 until 08/22/2019 [facility] Comment on above: One Time for 1 Occurrences starting 08/07 until 08/22/2019 Screening colonoscopy SCREENING COLONOSCOPY GI/Bronch Routine Encounter for screening colonoscopy 01/28/2022 9:43 AM EST [facility] Immunizations Immunization Date Immunization Notes Care Provider Fa cili 12-23-2015 influenza, injectabl e, quadrivalent, contains preservative Sabrina Dee MD, MPH Work Phone: [facility] 12-23-2015 influenza virus vaccine, unspecified formulation Sabrina Dee MD, MPH Work Phone: [facility] 12-15-2014 influenza virus vaccine, unspecified formulation Sabrina Dee MD, MPH Work Phone: [facility] Payers Date Payer Category Payer Self-pay [id number] 2019 Unknown [facility] [employer] xxxxxxxxxxx 2019-Present [phone] CLAIMS DEPARTMENT [address] [place] [address] xxxxxxxxxxx [id number] 2017 Unknown [id number] 2017 Unknown 1969 Unknown [id number] 1969 Unknown [id number] 1969 Unknown [id number] 1970 Unknown [id number] 2.16.840.1.503947.3.579.2.900 1970 Unknown [id number] 2.16.840.1.025507.3.579.2.900 1969 Unknown [id number] 2.16.840.1.527477.3.579.2.173 1969 Unknown [id number] 2.16.840.1.429402.3.579.2.173 1969 Unknown [id number] 2.16.840.1.891824.3.579.2.593 1969 Unknown [id number] 2.16.840.1.927569.3.579.2.593 1969 Unknown [id number] 2.16.840.1.461023.3.579.2.593 1969 Unknown [id number] 2.16.840.1.642599.3.579.2.593 1969 Unknown [id number] 2.16.840.1.108092.3.579.2.593 1969 Unknown [id number] 2.16.840.1.442474.3.579.2.593 1969 Unknown [id number] 2.16.840.1.288666.3.579.2.593 1969 Unknown [id number] 2.16.840.1.308697.3.579.2.593 1969 Unknown [id number] 2.16.840.1.328084.3.579.2.593 1969 Unknown [id number] 2.16.840.1.859800.3.579.2.593 1969 Unknown [id number] 2.16.840.1.455136.3.579.2.593 1969 Unknown [id number] 2.16.840.1.507245.3.579.2.593 1969 Unknown [id number] 2.16.840.1.535620.3.579.2.593 1969 Unknown [id number] 2.16.840.1.237377.3.579.2.593 1969 Unknown [id number] 2.16.840.1.019970.3.579.2.594 1969 Unknown [id number] 2.16.840.1.785499.3.579.2.594 1969 Unknown [id number] 2.16.840.1.517522.3.579.2.594 1969 Unknown [id number] 2.16.840.1.245943.3.579.2.594 1969 Unknown [id number] 2.16.840.1.697163.3.579.2.594 1969 Unknown [id number] 2.16.840.1.596974.3.579.2.594 1960 Medicaid [id number] 1960 Unknown [id number] Unknown [id number] 2.16.840.1.979501.3.579.2.531 Unknown [id number] 2.16.840.1.448365.3.579.2.531 Unknown [id number] 2.16840.1.157526.3.579.2.531 Social History Date Type Detail Facility Start: 06-09-2017 End: 12-16-2021 Tobacco smoking status WAIS Current every day smoker [facility] History of tobacco use Cigarette Smoker O [facility] Start: 06-09-2017 End: 12-16-2021 Cigarettes smoked current (pack per day) - Reported [facility] Start: 1970 Sex Assigned At Not on file O [facility] Start: 08-22-2019 End: 08-12-2022 Alcohol intake Current non-drinker of alcohol (finding) [place] Exposure to SARS-CoV -2 (event) Unable to assess [place] Start: 03-08-2018 End: 12-16-2021 Tobacco use and exposure Never used [email or web address] Start: 07-24-2014 Tobacco Comment Smokes < 1/2 p pd, smoker for 30+ years [facility] Start: 07-24-2014 Alcohol Comment Prior heavy dr carrillo, quit 8 years ago [facility] Sex Assigned At Sex Assigned At Bir [facility] Other Start: 09-25-2021 End: 11-09-2022 Tobacco smoking status WAIS Smoker (finding) [facility] Start: 1970 Sex Assigned At Female [facility] Start: 05-09-2016 Alcohol Comment been sober for 9 years [facility] Clinical Notes 10-08-2019 to 08-12-2022 Sabrina [...] female seen in the pre-procedure area at [facility]. The indication for endoscopic evaluation includes: Alcohol-induced chronic pancreatitis PAST MEDICAL HISTORY: Past Medical History: Diagnosis Date Anemia Depression H. pylori infection Neutrophilic leukocytosis Pancreatitis SURGICAL HISTORY: Past Surgical History: Procedure Laterality Date EGD W/ ULTRASOUND N/A 12/01/2019 Laterality: N/A; Surgeon: Sabrina Dee MD, MPH; Location: [facility] EGD W/ ULTRASOUND N/A 04/23/2016 Laterality: N/A; Surgeon: Pineda Troy MD; Location: [facility] EGD W/ ULTRASOUND N/A 01/23/2016 Laterality: N/A; Surgeon: Pineda Troy MD; Location: [facility] CHANGE TUBE GASTROSTOMY N/A 08/20/2015 Laterality: N/A; Surgeon: Yanni Alonzo MD; Location: [facility] EGD DIAGNOSTIC N/A 06/25/2015 Laterality: N/A; Surgeon: Pineda Troy MD; Location: [facility] EGD W/ PLACEMENT OR REPLACEMENT PEG N/A 06/15/2015 Laterality: N/A; Surgeon: Curry Wilson MD; Location: [facility] EGD W/ INSERTION TUBE OR CATHETER N/A 06/13/2015 Laterality: N/A; Surgeon: Jose Ty MD; Location: [facility] EGD W/ ULTRASOUND N/A 02/14/2015 Laterality: N/A; Surgeon: Pineda Troy MD; Location: [facility] CHOLECYSTECTOMY CHOLECYSTECTOMY, LAPAROSCOPIC HYSTERECTOMY MEDICATIONS: Current Outpatient Medications Medication Instructions Amitriptyline (ELAVIL) 25 mg, Oral, DAILY AT BEDTIME Ergocalciferol (VITAMIN D2) 50,000 Units, Oral, WEEKLY omeprazole (PRILOSEC) 20 mg, Oral, DAILY Pancreatic enzymes (Creon) 74308-[address] Particles capsule 48,000 Units, Oral, 3 TIMES DAILY WITH MEALS Current Outpatient Medications: omeprazole [address] capsule, Take 1 capsule by mouth daily., Disp: 30 capsule, Rfl: 6 amitriptyline 10 MG tablet, Take 2.5 tablets by mouth at bedtime., Disp: 30 tablet, Rfl: 11 ergocalciferol 1.25 MG (95001 UT) capsule, Take 1 capsule by mouth once a week for 8 doses., Disp: 8 capsule, Rfl: 0 Pancreatic enzymes (Creon) 27986-[address] Particles capsule, Take 2 capsules by mouth 3 times daily with meals., Disp: 180 capsule, Rfl: 0 Current Facility-Administered Medications: Lactated ringers IV solution, , Intravenous, Continuous, Sabrina eDe MD, MPH lidocaine 1% buffered in sodium [...] Monitored Anesthesia Care. Sabrina Dee MD, MPH [facility] 08-12-2022 History and physical note ENDOSCOPIC PREPROCEDURE HISTORY AND PHYSICAL HISTORY OF PRESENT ILLNESS: Chioma Rainey is a 52 y.o. female seen in the pre-procedure area at [facility]. The indication for endoscopic evaluation includes: Alcohol-induced chronic pancreatitis PAST MEDICAL HISTORY: Past Medical History: Diagnosis Date Anemia Depression H. pylori infection Neutrophilic leukocytosis Pancreatitis SURGICAL HISTORY: Past Surgical History: Procedure Laterality Date EGD W/ ULTRASOUND N/A 12/01/2019 Laterality: N/A; Surgeon: Sabrina Dee MD, MPH; Location: [facility] EGD W/ ULTRASOUND N/A 04/23/2016 Laterality: N/A; Surgeon: Pineda Troy MD; Location: [facility] EGD W/ ULTRASOUND N/A 01/23/2016 Laterality: N/A; Surgeon: Pineda Troy MD; Location: [facility] CHANGE TUBE GASTROSTOMY N/A 08/20/2015 Laterality: N/A; Surgeon: Yanni Alonzo MD; Location: [facility] EGD DIAGNOSTIC N/A 06/25/2015 Laterality: N/A; Surgeon: Pineda Troy MD; Location: [facility] EGD W/ PLACEMENT OR REPLACEMENT PEG N/A 06/15/2015 Laterality: N/A; Surgeon: Curry Wilson MD; Location: [facility] EGD W/ INSERTION TUBE OR CATHETER N/A 06/13/2015 Laterality: N/A; Surgeon: Jose Ty MD; Location: [facility] EGD W/ ULTRASOUND N/A 02/14/2015 Laterality: N/A; Surgeon: Pineda Troy MD; Location: [facility] CHOLECYSTECTOMY CHOLECYSTECTOMY, LAPAROSCOPIC HYSTERECTOMY MEDICATIONS: Current Outpatient Medications Medication Instructions Amitriptyline (ELAVIL) 25 mg, Oral, DAILY AT BEDTIME Ergocalciferol (VITAMIN D2) 50,000 Units, Oral, WEEKLY omeprazole (PRILOSEC) 20 mg, Oral, DAILY Pancreatic enzymes (Creon) 96323-[address] Particles capsule 48,000 Units, Oral, 3 TIMES DAILY WITH MEALS Current Outpatient Medications: omeprazole [address] capsule, Take 1 capsule by mouth daily., Disp: 30 capsule, Rfl: 6 amitriptyline 10 MG tablet, Take 2.5 tablets by mouth at bedtime., Disp: 30 tablet, Rfl: 11 ergocalciferol 1.25 MG (89004 UT) capsule, Take 1 capsule by mouth once a week for 8 doses., Disp: 8 capsule, Rfl: 0 Pancreatic enzymes (Creon) 04839-[address] units [address] Particles capsule, Take 2 [...] Dee MD, MPH documented in this encounter [facility] 08-12-2022 Nurse Note PT Given discharge paperwork and reviewed per MD and nurse. Prep Room Supervisor available.Diet and restrictions reviewed as well. Venous access removed no complications noted. Ok to d/c Anesthesia and procedural MD. documented in this encounter [facility] 08-12-2022 Nurse Surgical operation note PT Given discharge paperwork and reviewed per MD and nurse. Prep Room Supervisor available.Diet and restrictions reviewed as well. Venous access removed no complications noted. Ok to d/c Anesthesia and procedural MD. [facility] 06-16-2022 History of Presen t illness Narrative This Cause Analyst verified the patients name and date of [...] for pain management 5. Prior evaluation at [facility] for TPIAT and was not a candidate 6. Last CT was at [facility] in 05/2019: No calcification in the pancreas. [...] (human immunodeficiency virus infection), Hyperlipidemia, Hyperthyroidism, Hypothyroidism, NH (myocardial infarction), Migraine, PEGGY (obstructive sleep apnea), [...] amitriptyline 10 MG tablet, ergocalciferol 1.25 MG (66414 UT) capsule, and Pancreatic enzymes (Creon) 69983-[address] Particles capsule. Allergies: She [...] Hepatology, and Nutrition documented in this encounter [facility] 06-16-2022 Instructions Sabrina Dee MD, MPH - 06/16/2022 11:00 AM EDT Schedule EUS celiac plexus block; EGD dilation Referral to endocrinology; appointment to be scheduled Return to clinic in Mar 2023 Smoking cessation Vitamin D 2000 units daily Calcium supplement 1 gram daily Omeprazole (Prilosec) 20mg daily, take at least 30 mins before dinner documented in this encounter [facility] 01-28-2022 Miscellaneous Notes Attending physician in room speaking with patient and family on results. Attending physician ok for discharge. Pt ambulated unassisted with steady gait and balance. IV removed and discharge instructions given with verbal ok by patient of understanding. Pt discharged via w/c with minibus driver from unit. Dr dee aware patient ready for results Updated dr goins on patient pain and received new orders documented in this encounter [facility] 01-28-2022 Note Formatting of this n ote might be different from the original. Attending physician in room speaking with patient and family on results. Attending physician ok for discharge. Pt ambulated unassisted with steady gait and balance. IV removed and discharge instructions given with verbal ok by patient of understanding. Pt discharged via w/c with minibus driver from unit. [facility] 01-28-2022 Note Formatting of this n ote might be different from the original. Dr dee aware patient ready for results [facility] 01-28-2022 Note Formatting of this n ote might be different from the original. Updated dr goins on patient pain and received new orders [facility] 01-28-2022 History and physical note ENDOSCOPIC PREPROCEDURE HISTORY AND PHYSICAL HISTORY OF PRESENT ILLNESS: Chioma Rainey is a 51 y.o. female seen in the preoprocedure area at [facility]. The indication for endoscopic evaluation includes: Recurrent acute pancreatitis PAST MEDICAL HISTORY: Past Medical History: Diagnosis Date Anemia Depression H. pylori infection Neutrophilic leukocytosis Pancreatitis SURGICAL HISTORY: Past Surgical History: Procedure Laterality Date EGD W/ ULTRASOUND N/A 12/01/2019 Laterality: N/A; Surgeon: Sabrina Dee MD, MPH; Location: [facility] EGD W/ ULTRASOUND N/A 04/23/2016 Laterality: N/A; Surgeon: Pineda Troy MD; Location: [facility] EGD W/ ULTRASOUND N/A 01/23/2016 Laterality: N/A; Surgeon: Pineda Troy MD; Location: [facility] CHANGE TUBE GASTROSTOMY N/A 08/20/2015 Laterality: N/A; Surgeon: Yanni Alonzo MD; Location: [facility] EGD DIAGNOSTIC N/A 06/25/2015 Laterality: N/A; Surgeon: Pineda Troy MD; Location: [facility] EGD W/ PLACEMENT OR REPLACEMENT PEG N/A 06/15/2015 Laterality: N/A; Surgeon: Curry Wilson MD; Location: [facility] EGD W/ INSERTION TUBE OR CATHETER N/A 06/13/2015 Laterality: N/A; Surgeon: Jose Ty MD; Location: [facility] EGD W/ ULTRASOUND N/A 02/14/2015 Laterality: N/A; Surgeon: Pineda Troy MD; Location: [facility] CHOLECYSTECTOMY CHOLECYSTECTOMY, LAPAROSCOPIC HYSTERECTOMY MEDICATIONS: Current Outpatient Medications Medication Instructions amitriptyline (ELAVIL) 25 mg, Oral, DAILY AT BEDTIME ergocalciferol (VITAMIN D2) 50,000 Units, Oral, WEEKLY Pancreatic enzymes (Creon) [address] Particles capsule 48,000 Units, Oral, 3 TIMES DAILY WITH MEALS Current Outpatient Medications: amitriptyline 10 MG tablet, Take 2.5 tablets by mouth at bedtime., Disp: 30 tablet, Rfl: 11 Pancreatic enzymes (Creon) 29280-[address] Particles capsule, Take 2 capsules by mouth 3 times daily with meals., Disp: 180 capsule, Rfl: 0 ergocalciferol 1.25 MG (89221 UT) capsule, Take 1 capsule by mouth [...] Monitored Anesthesia Care. Sabrina Dee MD, MPH [facility] 01-28-2022 History and physical note ENDOSCOPIC PREPROCEDURE HISTORY AND PHYSICAL HISTORY OF PRESENT ILLNESS: Chioma Rainey is a 51 y.o. female seen in the preoprocedure area at [facility]. The indication for endoscopic evaluation includes: [...] 50,000 Units, Oral, WEEKLY Pancreatic enzymes (Creon) 35492-[address] Particles capsule 48,000 Units, Oral, 3 TIMES DAILY WITH MEALS Current Outpatient Medications: amitriptyline 10 MG tablet, Take 2.5 tablets by mouth at bedtime., Disp: 30 tablet, Rfl: 11 Pancreatic enzymes (Creon) 91497-[address] Particles capsule, Take 2 capsules by mouth 3 times daily with meals., Disp: 180 capsule, Rfl: 0 ergocalciferol 1.25 MG (68487 UT) capsule, Take 1 capsule by mouth [...] MD, MPH documented in this encounter [facility] 12-16-2021 History of Presen t [...] for pain management 5. Prior evaluation at [facility] for TPIAT and was not a candidate 6. Last CT was at [facility] in 05/2019: No calcification in the pancreas. [...] (human immunodeficiency virus infection), Hyperlipidemia, Hyperthyroidism, Hypothyroidism, NH (myocardial infarction), Migraine, PEGGY (obstructive sleep apnea), [...] 10 MG tablet and Pancreatic enzymes (Creon) [address] Particles capsule. Allergies: She [...] in 6 months documented in this encounter [facility] 12-16-2021 Instructions Sabrina Dee MD, MPH - 12/16/2021 11:30 AM EDT Schedule DEXA scan Schedule colonoscopy Schedule EUS Start vitamin D 1,000 units daily. Start calcium supplements 1g daily RTC in 6 months documented in this encounter [facility] 03-19-2021 Evaluation note Encounter Date [...] Patient care instructions given in writting by [facility] Care At Home document [employer] Other 08-01-2020 History general Narrative - Reported* Type Description Date Medical History chronic pancreatitis Medical History chronic pain Medical History former alcoholic Surgical History [facility]- [facility] Surgical History GALLBLADDER Surgical History COLON-[facility] Hospitalization History see above [employer] Other Evaluation noteNo assessment information available [facility] Work Phone: Evaluation note* Diagnosis Recurrent acute pancreatitis- Primary Acute pancreatitis History of smoking 25-50 pack years Alcohol-induced chronic pancreatitis Chronic pancreatitis Epigastric pain Abdominal pain, epigastric Encounter for screening colonoscopy Special screening for malignant neoplasms, colon [facility] Recurrent acute pancreatitis Acute pancreatitis History of smoking 25-50 pack years Encounter for screening colonoscopy Special screening for malignant neoplasms, colon [facility] Diagnosis Other osteoporosis without current pathological fracture- Primary Recurrent acute pancreatitis Acute pancreatitis Encounter for screening colonoscopy Special screening for malignant neoplasms, colon [facility] Encounter for screening colonoscopy Special screening for malignant neoplasms, colon [facility] Osteoporosis without current pathological fracture, unspecified osteoporosis type- Primary Alcohol-induced chronic pancreatitis Chronic pancreatitis [facility] Alcohol-induced chronic pancreatitis Chronic pancreatitis [facility] Additional Instructions Fluids Phenergan if needed for nausea vomiting Bentyl as needed for abdominal pain Follow-up with your GI specialist call Thursday for appointment Return here if any problems persist or worsen [facility] Work Phone: Discharge Instructions * [...] Log into your personal health record on [email or web address] and enter E907 in the Education box to learn more about Abdominal Pain: Care Instructions. Current as of: August 03, 2015 Content Version: 11.2 2068-5285 [employer]. Care instructions adapted under license by your healthcare professional. If you have questions about a medical condition or this instruction, always ask your healthcare professional. [employer] disclaims any warranty or liability for your [...] Log into your personal health record on [email or web address] and enter H591 in the Education box to learn more about Nausea and Vomiting: Care Instructions. Current as of: August 03, 2015 Content Version: 11.2 3712-1263 [employer]. Care instructions adapted under license by your healthcare professional. If you have questions about a medical condition or this instruction, always ask your healthcare professional. [employer] disclaims any warranty or liability for your use of this information. Please review regarding your visit: Please note that your blood pressure during this ER visit was above 120/80 mmHg. YOUR BP READING WAS: 111/88 The [place] [employer] (AHA) defines a normal blood [...] review at your convenience for more information: [email or web address] in this encounter* Discharge Instr - Other Orders - Poncho Sparks RN - 05/15/2017 1:20 PM EST Patient voices desire to leave hospital AMA. IV removed. Patient is ambulatory in care of spouse. [facility] hospitalist notified. in this encounter* Montse Khan CNP - 08/24/2017 Seek medical attention if you have worsening symptoms or other concerns. Please follow up with your family doctor or one of your choosing. You may find a provider through the [facility] Physician Referral Service by calling [phone] ([phone]) or by visiting [email or web address] Chioma, Thank You for choosing [facility]! The following attachments cannot be sent through Care Everywhere. * Nausea and Vomiting (British) * Gastroenteritis (British) * Diarrhea (British) in this encounter The following attachments cannot be sent through Care Everywhere. * Pancreatitis (British) in this encounter* Instructions* Laura Meyer RN - 08/25/2019 Patient Instructions: Activity: activity as tolerated Diet: encourage fluids GI specialist in 2 weeks. * Attachments The following attachments cannot be sent through Care Everywhere. * Pancreatitis: Chronic Diet (British) * Pancreatitis (British) documented in this encounter Assessments Diagnosis Epigastric [...] on File Type Date Recorded Patient Educational Specialist Expl anation Advance Directives and Living Will Power of Paper Cone Machine Operator Latest Code Status on File Code Status Date Activated Date Inactivated Comments Full Code 08/22/2019 4:27 PM Documents on File Type Date Recorded Patient Educational Specialist Expl anation Advance Directives and Livin g [...] on File Type Date Recorded Patient Educational Specialist Expl anation ACP-Advance Directive ACP-Power of Paper Cone Machine Operator Latest Code Status on File Code Status [...] toradol is contraindicated. Called Dr. Hughes back, sheet writer explained that patient is tolerating dilaudid. Dr. Hughes ordered dose of dilaudid increased from 0.25 mg to 0.5 mg q4 hrs PRN. * Ladan Stearns RN - 08/24/2019 1:27 PM EDT Patient walking in hallway at this time. * Ladan Stearns RN - 08/24/2019 9:14 AM EDT Horse Rider to patients bedside at this time to reassess pain. Patient sitting in chair, appears restless and is tearful. Patient states Dilaudid did not help the pain, states there is nothing sheet writer can do as she deals with this often. Will continue to monitor patient. * Carley Camara APRN - CNP - 08/24/2019 7:58 [...] Scheduled for EGD in September with her Electrician Substation Supervisor at [facility] Discharge Planning -- Home when stable Carley Camara APRN, SCANNING SUPERVISOR-C Associated attestation - Rajeev Tinoco MD - 08/24/2019 5:30 PM EDT Attending Supervising Physician s Attestation Statement I have personally evaluated and examined the patient [id number] in conjunction with the nurse practitioner. I [...] Examined and Reviewed plan of care with SCANNING SUPERVISOR. Directions and discussion about care and plans. [...] [place] RN - 08/23/2019 4:40 PM EDT Horse Rider contacted Dr. Tinoco regarding update that patient [...] he would not give order for Benedryl. Horse Rider let nurse know that if patient's c/o ithcing and redness doesn't improve in an hour, that sheet writer will be calling back to update physician. * Brie [place] RN - 08/23/2019 3:20 PM EDT Horse Rider called into patient's room d/t patient c/o itching, feeling hot , and slight redness noted to BUE and face. Horse Rider contacted Dr. Tinoco office and left message with his nurse, asking for IV Benedryl and d/c of Lovenox. Patient thinks she may have had reaction to Lovenox in the past, and thatis the only other med she is currently taking here other than Dilaudid. Horse Rider did once again verify that patient usually [...] medically stable. Patient lives with her in [place]. She uses no DME and has no outside services currently in place. Patient provides for her own transportation needs and manages her medications. She is independent with her ADL's. PCP is [facility]. [facility] and denies needing further assistance with the cost of her medications. Discharge plan is home with no additional services at this time. Patient is a 'Full Code' status. She has no healthcare directives and voices that she is not interested in pursuing these documents further. HARNESS BRUSHER to monitor and assist with discharge planning [...] [place] RN - 08/23/2019 9:05 AM EDT Horse Rider made YOUTH AGENT aware that patient is vomiting at this time since clear liquid diet added. Horse Rider to give Zofran and place patient back [...] weight loss, but states of weight gain. [id number] Discussed need to re-zero Pt bed to verify gain. She declined education needs states she has a GI doctor and RDN at the [facility]. Reports following the guidelines they [...] 5. Fluid Accumulation-No significant fluid accumulation, 6. Practical Nursing Faculty Strength-Not measured Nutrition Risk Level: Moderate Nutrient Needs: Estimated Daily Total Kcal: 1532-7818(20-23/kg) Estimated Daily Protein (g): 65-75g(1.3-1.5g/kg) Estimated Daily [...] weight gain/23%, recommend to re-zero Pt bed Hilbert Body Wt: 110 lb (49.9 kg), % Hilbert Body 129% BMI Classification: BMI 25.0 - [...] Nausea or Vomiting, Patient/Family Education Contact Number: [phone] * Carley Camara, ALEA - YOUTH AGENT - 08/23/2019 7:30 AM EDT Progress Note [...] Daily Discharge Plan--later today/tomorrow Carley Camara APRN, SCANNING SUPERVISOR-C Associated attestation - Rajeev Tinoco MD - 08/23/2019 12:04 PM EDT Attending Supervising Physician s Attestation Statement I have personally evaluated and examined the patient [id number] in conjunction with the nurse practitioner. I [...] Examined and Reviewed plan of care with SCANNING SUPERVISOR. Directions and discussion about care and plans. [...] Patient [facility] to [facility] ED in process of running a code on another patient; cloth mercerizing supervisor states that report will be called when able. [employer] unable to get ahold of staff inED to put patient in proposal manager writer so that sheet writer can transfer patient over to [facility]. [...] Diagnoses Alcohol-induced chronic pancreatitis Procedures UPPER EUS MA ESOPHAGOGASTRODUODENOSCOPY US SCOPE W/ADJ Sabrina Tam MD, MPH [address] [place] [phone] Referral ID Status Reason Start Date Expiration Date V isits Requested Visits Authorized [id number] New Request 06/16/2022 07/11/2023 1 1 Specialty Diagnoses / Procedures Referred By Zia espinal Referred To Contact Endocrinology, Diabetes & Metabolism Diagnoses Osteoporosis without current pathological fracture, unspecified osteoporosis type Sabrina Dee MD, MPH [address] [place] [phone] Referral ID Status Reason Start Date Expiration Date V isits Requested Visits Authorized [id number] New Request 06/16/2022 07/11/2023 1 1 Specialty Diagnoses / Procedures Referred By Contac t Referred To Contact Diagnoses Encounter for screening colonoscopy Procedures SCREENING COLONOSCOPY MA COLON CA SCRN NOT HI RSK IND Sabrina Dee MD, MPH [address] [place] [phone] Referral ID Status Reason Start Date Expiration Date V isits Requested Visits Authorized [id number] New Request 12/16/2021 01/10/2023 1 1 Specialty Diagnoses / Procedures Referred By Contac t Referred To Contact Diagnoses Recurrent acute pancreatitis History of smoking 25-50 pack years Procedures BONE DENSITY AXIAL (HIP, PELVIS, SPINE) Sabrina Dee MD, MPH [address] [place] [phone] Referral ID Status Reason Start Date Expiration Date V isits Requested Visits Authorized [id number] New Request 12/16/2021 01/10/2023 1 1 Specialty Diagnoses / Procedures Referred By Contac t Referred To Contact Diagnoses Recurrent acute pancreatitis Procedures UPPER EUS MA EGD US GUIDED TRANSMURAL INJXN/FIDUCIAL MARKER Sabrina Dee MD, MPH [address] [place] [phone] Referral ID Status Reason Start Date Expiration Date V isits Requested Visits Authorized [id number] New Request 12/16/2021 01/10/2023 1 1 Additional [...] the patient. I discussed the patient with SCANNING SUPERVISOR/PA. I agree with the SCANNING SUPERVISOR/PA treatment plan. I agree with the SCANNING SUPERVISOR/PA plan of care. I agree with the SCANNING SUPERVISOR/PA dispo as documented. 46-year-old female presents with abdominal pain. She states I have chronic pancreatitis and this feels like a flareup . States that she took her usual Phenergan and Hanover with minimal relief so came the emergency [...] She is going to follow with her assistant child care teacher with whom she has an appointment on [...] different from the original. ED PROVIDER NOTE [facility] NAME: Chioma Rainey AGE: 46 y.o. : 1970 VISIT DATE: 06/09/2017 CSN: [id number] PCP: Elie Nichols MD Chief Complaint Patient [...] Phenergan suppository. She states that she took Hanover last night. Last dose of Hanover was around 9 PM last night. She [...] Procedure: EGD; Surgeon: Romain Dumont MD; Location: [facility]; Service: HYSTERECTOMY ORIF PELVIS ORTHOPEDIC SURGERY [...] Yellow Clarity, Urine Cloudy (A) Clear Specific [place] 1.024 1.005 - 1.025 pH, Urine 5.0 [...] Phenergan suppositories. She has follow-up with her assistant child care teacher at [facility] in 2 weeks. Do not feel [...] Information 1. Pineda Troy MD. Specialty: Gastroenterology [address] [place] [address] Contact information for after-discharge care Follow-up information has not been specified. New Prescriptions No medications on file (Please note that portions of this note may have been completed with a voice recognition software. Efforts were made to correct any errors, but occasionally words are mis-transcribed.) Jose Brown PA-C 06/09/17 2145 Pt states I have pancreatitis and I am having a flare up since last night . Pt relates mid abdominal pain that shoots into the left side of her back. Pt has been taking prescribed Hanover without relief and states she has been vomiting.in this encounter I personally interviewed the patient. I personally examined the patient. I discussed the patient with SCANNING SUPERVISOR/PA. I agree with the SCANNING SUPERVISOR/PA treatment plan. I agree with the SCANNING SUPERVISOR/PA plan of care. I agree with the SCANNING SUPERVISOR/PA dispo as documented. I saw evaluate this [...] different from the original. ED PROVIDER NOTE [facility]BS[facility] NAME: Chioma Rainey AGE: 46 y.o. : 1970 VISIT DATE: 05/14/2017 CSN: [id number] PCP: Elie Nichols MD Chief Complaint Patient [...] Procedure: EGD; Surgeon: Romain Dumont MD; Location: [facility]; Service: HYSTERECTOMY ORIF PELVIS ORTHOPEDIC SURGERY [...] Colorless, Yellow Clarity, Urine Clear Clear Specific [place] 1.006 1.005 - 1.025 pH, Urine 5.0 [...] in the left lower pelvis. Workstation ID: [id number] Procedures MDM This is a 46-year-old female [...] different from the original. ED PROVIDER NOTE [facility] NAME: Chioma Rainey AGE: 47 y.o. : 1970 VISIT DATE: 08/24/2017 CSN: [id number] PCP: Elie Nichols MD Chief Complaint Patient [...] Procedure: EGD; Surgeon: Romain Dumont MD; Location: [facility]; Service: HYSTERECTOMY ORIF PELVIS ORTHOPEDIC SURGERY [...] Yellow Clarity, Urine Hazy (A) Clear Specific [place] 1.006 1.005 - 1.025 pH, Urine 7.0 [...] probably remain. 5. Small left adrenal adenoma. [employer] Workstation ID: [id number] Procedures MDM 47-year-old female [...] she did vomit. She was then given MA Phenergan and a dose of Toradol. She [...] Medicine Why: follow up ER visit [address] [address] Contact information for after-discharge care Follow-up information [...] the patient. I discussed the patient with SCANNING SUPERVISOR/PA. I agree with the SCANNING SUPERVISOR/PA treatment plan. I agree with the SCANNING SUPERVISOR/PA plan of care. I agree with the SCANNING SUPERVISOR/PA dispo as documented. Formatting of this note may be different from the original. ED PROVIDER NOTE [facility] NAME: Chioma Rainey AGE: 47 y.o. : 1970 VISIT DATE: 03/04/2018 CSN: [id number] PCP: Elie Nichols MD Chief Complaint Patient [...] Procedure: EGD; Surgeon: Romain Dumont MD; Location: [facility]; Service: HYSTERECTOMY ORIF PELVIS ORTHOPEDIC SURGERY [...] Colorless, Yellow Clarity, Urine Clear Clear Specific [place] 1.004 (L) 1.005 - 1.025 pH, Urine [...] Condition Comment Hospitalize [facility]ending Provider [facility] [[id number]] Phone call required?: No Follow-up Information Follow-up [...] different from the original. Adonis Negro MD [facility] Hospitalists History and Physical Patient Name:Chioma Rainey MR #:[id number] :1970 Admit Date: [id number] Physicians: Elie Nichols [...] Procedure: EGD; Surgeon: Romain Dumont MD; Location: [facility]; Service: HYSTERECTOMY ORIF PELVIS ORTHOPEDIC SURGERY [...] Diagnoses Acute recurrent pancreatitis Rajeev Tinoco MD [address] [place] [address], [address] [place] [id number] [facility] Reason Comments Abdominal Pain Pt c/o [...] SPINE) Sabrina Dee MD, MPH [address] [place] [phone] Referral ID Status Reason Start Date Expiration Date V isits Requested Visits Authorized [id number] New Request 12/16/2021 01/10/2023 1 1 Specialty Diagnoses / Procedures Referred By Contmercedes espinal Referred To Contact Diagnoses Recurrent acute pancreatitis Procedures UPPER EUS MA EGD US GUIDED TRANSMURAL INJXN/FIDUCIAL MARKER Sabrina Dee MD, MPH [address] [place] [phone] Referral ID Status Reason Start Date Expiration Date V isits Requested Visits Authorized [id number] New Request 12/16/2021 01/10/2023 1 1 Specialty Diagnoses / Procedures Referred By Contac t Referred To Contact Diagnoses Encounter for screening colonoscopy Procedures SCREENING COLONOSCOPY MA COLON CA SCRN NOT HI RSK IND Sabrina Dee MD, MPH [address] [place] [phone] Referral ID Status Reason Start Date Expiration Date V isits Requested Visits Authorized [id number] New Request 12/16/2021 01/10/2023 1 1 Reason Comments Follow-up 6 month follow up Specialty Diagnoses / Procedures Referred By Contac t Referred To Contact Diagnoses Alcohol-induced chronic pancreatitis Procedures UPPER EUS MA ESOPHAGOGASTRODUODENOSCOPY US SCOPE W/ADJ STRXRS Sabrina Dee MD, MPH [address] [place] [phone] Referral ID Status Reason Start Date Expiration Date V isits Requested Visits Authorized [id number] New Request 06/16/2022 07/11/2023 1 1 INFORMATION SOURCE (unrecogn ized section and content) DATE CREATED AUTHOR 03/09/2018 [facility] DATE CREATED AUTHOR AUTHOR'S ORGANIZ ATION 03/28/2020 [facility] DATE CREATED AUTHOR AUTHOR'S ORGANIZ ATION 04/08/2021 [facility] DATE CREATED AUTHOR AUTHOR'S ORGANIZ ATION 06/18/2022 [facility] DATE CREATED AUTHOR AUTHOR'S ORGANIZ ATION 08/17/2022 [facility] DATE CREATED AUTHOR AUTHOR'S ORGANIZ ATION 11/28/2022 [facility] Care Teams (unrecognized sec tion and [...] Active Christa Lopez PA-C Emergency Provider Active Machine Deicer Element Winder Relationship Specialty Start Date End Date Pineda Troy MD [address] [place] [phone] PCP - Referring 1 Gastroenterology 09/25/17 [facility], [facility] [address] [facility] [place] [address] PCP - General 11/28/19 [employer] Relationship Specialty Start Date End Date Pineda Troy MD [address] [place] [phone] PCP - Referring 1 Gastroenterology 09/25/17 [facility], [facility] [address] [facility] [place] [address] PCP - General 11/28/19 Machine De[employer] Element Winder Relationship Specialty Start Date End Date Pineda Troy MD [address] [place] [phone] PCP - Referring 1 Gastroenterology 09/25/17 [facility] [address] [facility] [place] [address] PCP - General 11/28/19 Machine Deicer Element Winder Relationship Specialty Start Date End Date Pineda Troy MD [address] [place] [phone] PCP - Referring 1 Gastroenterology 09/25/17 [facility] [address] [facility] [place] [address] PCP - General 11/28/19 Team Status: Inactive Member Role Status Dates NON STAFF Primary Care Provider Active Agustin Llanes MD Emergency Provider Active Machine Deicer Element Winder Relationship Specialty Start Date End Date Pineda Troy MD [address] [place] [phone] PCP - Referring 1 Gastroenterology 09/25/17 [facility] [address] [facility] [place] [address] PCP - General 11/28/19 Machine Deicer Element Winder Relationship Specialty Start Date End Date Pineda Troy MD [address] [place] [phone] PCP - Referring 1 Gastroenterology 09/25/17 [facility] [address] [facility] [place] [address] PCP - General 11/28/19 Team Status: Inactive [...] BE BASED ON THE PRIMARY CLINICAL RECORDS. [facility] [employer] [facility]. provides no warranty or guarantee of the accuracy or completeness of information in this document.
[2023-03-16] MEDS: ONDANSETRON PF 4 MG/2 ML VIAL IV (05:55)
[2023-03-16] MEDS: MORPHINE SULFATE 4 MG/ML VIAL IV (05:55)
[2023-03-16 06:07] LABS: Basophils Absolute Auto 0.1 10^3/uL (0.0-0.1); Basophils Percent Auto 1.2 % (0.2-2.0); Eosinophils Absolute Auto 0.2 10^3/uL (0.0-0.7); Hematocrit 43.3 % (36.0-48.0); Hemoglobin 14.2 g/dL (12.0-16.0); Immature Granulocytes Abs Auto 0.01 10^3/uL (0.00-0.03); Immature Granulocytes Pct Auto 0.1 % (0.0-0.5); Lymphocytes Absolute Auto 2.9 10^3/uL (1.2-3.8); Lymphocytes Percent Auto 37.2 % (20.5-60.0); Mean Corpuscular HGB Conc 32.8 g/dL (29.9-35.2); Mean Corpuscular Hemoglobin 32.7 pg (26.7-34.0); Mean Corpuscular Volume 99.8 fL (81.0-99.0); Mean Platelet Volume 10.2 fL (9.5-13.5); Monocytes Percent Auto 12.6 % (1.7-12.0); Neutrophils Absolute Auto 3.5 10^3/uL (1.4-6.5); Neutrophils Percent Auto 45.9 % (43.0-75.0); Platelet Count 258 10^3/uL (150-450); Red Blood Count 4.34 10^6/uL (4.20-5.40); Red Cell Distribution Width 12.6 % (11.0-15.0); White Blood Count 7.7 10^3/uL (4.0-11.0)
[2023-03-16 06:15] LABS: BUN Creatinine Ratio 13.4; Calcium 10.6 mg/dL (8.5-10.1); Carbon Dioxide 31.4 mmol/L (21.0-32.0); Chloride 106 mmol/L (98-107); Estimated GFR (African America >60 (>=60); Estimated GFR (Non-African Ame >60 (>=60); Glucose 94 mg/dL (74-106); Potassium 3.4 mmol/L (3.5-5.1); Sodium 137 mmol/L (136-145)
[2023-03-16 06:20] LABS: Alanine Aminotransferase 19 U/L (14-59); Albumin Globulin Ratio 0.9; Albumin Level 3.4 g/dL (3.4-5.0); Alkaline Phosphatase 151 U/L (46-116); Amylase 154 U/L (25-115); Aspartate Amino Transferase 16 U/L (15-37); Bilirubin Direct <0.1 mg/dL (0.0-0.2); Bilirubin Total 0.2 mg/dL (0.2-1.0); Globulin 3.6 g/dL
--- NOTE | 2023-03-16 06:38 | CT_ITS ---
The [address] [address] Patient Name: CHIOMA BOUDREAUX MRN: [id number] date: 1970 Sex: F Assigned Patient Location: ER Current Patient Location: ER Accession/Order Number: [id number] Exam Date: 03/16/2023 06:58 Report Date: 03/16/2023 07:45 At the request of: YANNI FRASER Procedure: CT abdomen pelvis w con EXAM: CT abdomen pelvis w con HISTORY: abdominal pain, history of chronic pancreatitis. COMPARISON: Comparison made to CT abdomen and pelvis dated 11/02/2022. TECHNIQUE: Contiguous transaxial images were obtained from lung bases to pubic symphysis following the administration of intravenous contrast without incident. Dose reduction: mA and/or kV are were adjusted by automated exposure control software based upon patients height and weight. FINDINGS: The lung bases are clear bilaterally. The gallbladder is surgically absent. There is mild central intrahepatic biliary duct dilatation and there is dilatation of the common bile duct measuring up to 1.4 x 1.6 cm. There is persistent mild dilatation of the pancreatic duct. There is no peripancreatic inflammation. There are no pancreatic calcifications. There is no discrete pancreatic mass lesion appreciated although there is some fullness of the pancreatic head. There are no peripancreatic fluid collections. The liver and spleen are normal. There is a 1.0 x 1.3 cm left adrenal nodule measuring 105 Hounsfield units, indeterminate. Bilateral kidneys are normal. There is no hydronephrosis. Urinary bladder is incompletely distended, likely accounting for mild wall thickening. Uterus is surgically absent. There are calcified pelvic phleboliths. There is no free fluid within the abdomen or pelvis and there is no pneumoperitoneum. There is no abdominal or pelvic lymphadenopathy. The abdominal aorta is patent and without aneurysm or dissection. There is mild abdominal aortic atherosclerosis. Evaluation the stomach and bowel is limited in the absence of oral contrast. The stomach contains food and fluid. There is no perigastric inflammation. There is no small bowel obstruction. There is no small bowel interloop fluid. There is no acute appendicitis. There is a normal volume of colonic stool. There are few scattered left colonic diverticula without CT findings of acute diverticulitis. There is no acute osseous abnormality. There is mild levocurvature of the lumbar spine. There is multilevel degenerative disc disease of the thoracolumbar spine, most pronounced at T12-L1, L1-L2, and L4-5. CT/CT abdomen pelvis w con IMPRESSION: 1. Status post cholecystectomy with mild central intrahepatic biliary duct dilatation as well as dilatation of the common bile duct measures up to 1.4 x 1.6 cm. There is also persistent mild dilatation of the pancreatic duct without peripancreatic inflammation, pancreatic calcifications, or discrete pancreatic mass lesion. Appearance is similar to prior CT of 11/02/2022. Please correlate with any prior workup including prior ERCP or MRCP. If not performed, recommend follow-up ERCP or MRCP for further evaluation. 2. 1.0 x 1.3 cm indeterminate left adrenal nodule similar to the previous examination. Consider follow-up adrenal MRI for further evaluation. 3. Status post hysterectomy. 4. Mild colonic diverticulosis without CT findings of acute diverticulitis. Electronically authenticated by: AGUSTIN CHUNG Date: 03/16/2023 07:45
[2023-03-16 08:13] VITALS: BP 109/73; PULSE 79; RESP 16; TEMP 37.2; O2SAT 99
== END 2023-03-16 08:20 | disposition home or self-care (01) ==
PROVIDERS: Emergency Provider Emergency Medicine
DX: K85.90 Acute pancreatitis without necrosis or infection, unspecified (principal); Z79.899 Other long term (current) drug therapy; F17.210 Nicotine dependence, cigarettes, uncomplicated
CPT/HCPCS: 36415; 74177; 80048; 80076; 81001; 82150; 83690; 85025; 96374; 96375; 99284; J2270; J2405; Q9967

== ENCOUNTER 2023-03-25 17:23 | Emergency (ER) | payer OTHER, SELFPAY ==
[2023-03-25] VITALS (14 sets, daily range): BP systolic 107–156; BP diastolic 72–92; PULSE 100–119; RESP 18–20; TEMP 36.8; O2SAT 94–98; BMI 23.4
[2023-03-25] MEDS: 0.9 % SODIUM CHLORIDE 1,000 ML 999 ML IV (17:41)
--- OUTSIDE RECORDS SUMMARY | 2023-03-25 17:43 | XMS_ITS | CCD ---
Author Name Unknown Address [address] [place] [address] Organization [facility] Care Team Providers Care Process Technician Name Role Phone LiElie Unavailable LIDARRICKWA Unavailable Unavailable COPC SACHIN, GENERIC Unavailable Unavailable COPC SACHIN, GENERIC Unavailable Unavailable RUPINDER NEGROI Unavailable Unavailable LI, KEWA Unavailable Unavailable JOANA MENDES Unavailable Unavailable LI, KEWA Unavailable Unavailable ERROL WALTON Unavailable Unavaila ble LI, KEWA Unavailable Unavailable KEERTHI NGUYEN Unavailable Unavailable COPC SACHIN, GENERIC Unavailable Unavailable KEERTHI NGUYEN Unavailable Unavailable LI, KEWA Unavailable Unavailable PHYSICIANS, [facility] Unavailable Unav ailable EUGENIA SHELTON Unavailable Unavailable PHYSICIANS, [facility] Unavailable Unav ailable Unavailable Primary Care Provider UnavailRAJEEV Pino Admitting Unavailable RAJEEV TINOCO Attending Unavailable LiDarrickwa Primary Care Provider Unavailable Primary Care Provider UnavailMarya Guajardo Unavailable NON STAFF Primary Care Provider UnavailDO Keaton Thompson Emergency Provider SALMA Amor Emergency Provider [phone] SALMA Lopez Emergency Provider Woodrow ALEXANDER, Pineda Espinal Unavailable [phone] [facility], Other Primary Care Provi mathew NON STAFF Primary Care Provider Unavailflorida Llanes MD Agustin Emergency Provider DR TRI HANSON Consulting Unavailable JANUSZ ., ARIC Attending Unavailable JANUSZ ., ARIC Admitting Unavailable [facility] Primary Care Unavailable JANUSZ ., ARIC Consulting Unavailable AGUSTIN MADRIGAL Consulting Unavailable YANNI FRASER Attending Unavailable YANNI FRASER Admitting Unavailable [facility] Primary Care Unavailable HEBERT MCPHERSON Consulting Unavailable AMINATA, DR RAJEEV Chan Consulting Unavailable AMINATA, DR RAJEEV Chan Attending Unavailable AMINATA, DR RAJEEV Chan Admitting Unavailable [facility] Primary Care Unavailable JANNY ., ANKIT BOYKIN Consulting Unavailabl e IGGY ., MONIK Attending Unavailable IGGY ., MONIK Admitting Unavailable GRECHNY ., PA [facility]IA [facility] ANNELIESE, NICK Consulting Unavailable JANUSZ ., ARIC Consulting Unavailable AGUSTIN HIGHTOWER Consulting Unavailable ROLAN EUCEDA Consulting Unavailable AMINATA, DR RAJEEV Chan Consulting Unavailable BRIANNA, DR SHARON Silveira Attending Unavailabl e REINECK, DR SHARON Silveira [facility] Unavailable BRIANNA, DR SHARON Silveira Consulting Unavailabl e HANS ., NAT Consulting Unavailable HANS ., NAT Consulting Unavailable PAY ., DR MACEDO Attending Unavailable PAY ., DR MACEDO Admitting Unavailable [facility] Primary Care Unavailable ANNELIESE, NICK Consulting Unavailable MARIAM COYYL Attending Unavailable ANNELIESE, NICK Admitting Unavailable [facility] Primary Care Unavailable MILADIS BARRERA Consulting Unavailable JANUSZ ., ARIC Attending Unavailable JANUSZ ., ARIC Admitting Unavailable JANUSZ ., ARIC Consulting Unavailable [facility] Primary Care Unavailable ION KRUSE Consulting Unavailable YANNI FRASER Attending Unavailable YANNI FRASER Admitting Unavailable JANNY ., ANKIT BOYKIN [facility] Unavailable LYNNE PERDOMO Consulting Unavailable JANUSZ ., ARIC Attending Unavailable JANUSZ ., ARIC Admitting Unavailable [facility] Primary Care Unavailable JANUSZ ., ARIC Consulting Unavailable DIAB ., ELENITA Consulting Unavailable DIAB ., ELENITA Attending Unavailable DIAB ., ELENITA Admitting Unavailable [facility] Primary Care Unavailable PAY ., DR MACEDO Consulting Unavailable PAY ., DR MACEDO Attending Unavailable PAY ., DR MACEDO Admitting Unavailable [facility] Primary Care Unavailable NICK COY Consulting Unavailable NICK COY Attending Unavailable NICK COY Admitting Unavailable [facility] Primary Care Unavailable AGUSTIN HIGHTOWER Consulting Unavailable AMINATA, DR RAJEEV Chan Consulting Unavailable TANVIR ., DR GRANT Attending Unavailable HAY ., DR GRANT Admitting Unavailable [facility] Primary Care Unavailable HAY ., DR GRANT Consulting Unavailable [facility] Primary Care Un available STEVE, SOMASHEKAR [...] Primary Care Provider UnavailALEA Stewart Emergency Provider [phone] Robb Burris Admitting Unavailable Robb Burris Attending [...] adverse reactions to drug 06-02-19 16 Hives [facility] (19 sources) ibuprofen; Translations: [IBUPROFEN] Propensity to adverse reactions to drug 10-31-19 13 Hives, Swelling [facility] (6 sources) metoclopramide; Translations: [METOCLOPRAMIDE HCL] Propensity to adverse reactions to drug 07-01-19 17 [facility] (6 sources) penicillin g; Translations: [PENICILLIN G] Propensity to adverse reactions to drug 07-25-19 15 Anaphylaxis [facility] (19 sources) traMADol; Translations: [TRAMADOL] Propensity to adverse reactions to drug 07-25-19 15 [facility] (17 sources) morphine; Translations: [MORPHINE] Drug Allergy 07-16-19 18 [facility] (2 sources) Enoxaparin Drug Allergy 08-23-19 20 Itching, Rash [place], [place] (2 sources) Haloperidol Drug Allergy 10-20-19 18 Swelling [place] (12 sources) Penicillins Propensity to adverse reactions to drug 10-31-19 13 Anaphylaxis, Swelling [place] (2 sources) Haloperidol; Translations: [Haldol] Drug Allergy 08-10-19 19 Unknown [facility] (6 sources) fentaNYL; Translations: [Fentanyl] Drug Allergy 12-14-19 21 [facility] (5 sources) Ketorolac; Translations: [ketorolac] Drug Allergy 09-26-19 22 [facility] (6 sources) Ketorolac Drug Allergy 12-17-19 22 Hives, Itching [facility] (6 sources) Metoclopramide Drug Allergy 07-20-19 17 Anxiety [facility] (1 source) Ibuprofen Drug Allergy 01-09-20 13 [facility] (1 source) Ketorolac Drug Allergy [facility] (1 source) Morphine Drug Allergy 08-10-19 19 [facility] (1 source) Penicillins Drug allergy (disorder) 01-09-20 13 [facility] (1 source) traMADol Drug Allergy 01-09-20 13 [facility] (1 source) Haloperidol Drug Allergy 11-10-19 23 [facility] (1 source) Ibuprofen Drug Allergy 11-10-19 [facility] (1 source) Morphine Drug Allergy 11-10-19 [facility] (1 source) Penicillins Drug allergy (disorder) 11-10-19 [facility] (1 source) traMADol Drug Allergy 11-10-19 [facility] Medications Current Medications Medication Drug Class(es) Dates Sig (Normalized) Sig (Original) Acetaminophen (1 source) Start: 08-23-2019 acetaminophen (TYLENOL) tablet 650 mg amylase 506700 unt / lipase 37529 unt / protease 86155 unt delayed release oral capsule (8 sources) Start: 12-16-2021 End: 07-16-2022 take 94194-16067 capsules by mouth three times daily Llsjgy-Osjglqza-Exf lase (Creon) 24,000-76,000 -120,000 unit capsule,delayed release(DR/EC) [...] by mouth every week ergocalciferol 1.25 MG (33195 UT) capsule Take 1 capsule by mouth [...] as needed HYDROmorphone (DILAUDID) injection 0.5 mg Marley (No Known Home Meds) (1 source) Start: 10-09-2021 Marley (No Kn own Home Meds) Active October [...] release tablet 5 mg polyethylene glycol 3350 55122 mg powder for oral solution (1 source) [...] 01-28-2022 Chronic Other aftercare (1 source) Other intermission coordinator (current) drug therapy; Translations: [OTH PENITENTIARY CURRENT DRUG THERAPY] Onset: 04-01-2022 Episodic Other [...] 11-09-2022 ALT [Catalytic activity/Vol] 12 U/L 7-52 [facility] Albumin [Mass/volume] in Ser um or Plasma by Bromocresol green (BCG) dye binding methoOrdered By: Nicole Posadas on 11-09-2022 Albumin BCG dye [Mass/Vol] 4.4 g/dL 3.5-5.7 [facility] Alkaline phosphatase [Enzyma tic activity/volume] in Serum or PlasmaOrdered By: Nicole Posadas on 11-09-2022 ALP [Catalytic activity/Vol] 126 U/L 34-104 [facility] Aspartate aminotransferase [ Enzymatic activity/volume] in Serum or PlasmaOrdered By: Nicole Posadas on 11-09-2022 AST [Catalytic activity/Vol] 17 U/L 13-39 [facility] Basophils Auto (Bld) [#/Vol] Ordered By: Nicole Posadas on 11-09-2022 Basophils (Bld) [#/Vol] 0.1 10*3/uL 0.0-0.2 [facility] Basophils/100 WBC Auto (Bld) Ordered By: Nicole Posadas on 11-09-2022 Basophils/100 WBC (Bld) 0.9 % . [facility] Bilirubin Test strip Ql (U)O rdered By: Nicole Posadas on 11-09-2022 Bilirubin Ql (U) Negative Negative [facility] Bilirubin.total [Mass/volume ] in Serum or PlasmaOrdered By: Nicole Posadas on 11-09-2022 Bilirubin [Mass/Vol] 0.3 mg/dL 0.3-1.[address] [facility] [address] abdomen pelvis w conon CT abdomen pelvis w con [facility] [place] [address] CT Scan Report Signed Patient: Chioma Arciniega MR#: [id number] : 1970 Acct:[id number] Age/Sex: 52 / F ADM Date: 11/09/22 Loc: ER Room: Type: [facility] ER Attending Dr: Copies to: Nicole [...] Rajeev Ulloa M.D.11/09/2022 4:14 PM Dictation Location: [place] [address] Transcribed By: [facility] 11/09/22 1614 Dictated By: Rajeev Ulloa II, MD 11/09/22 1608 Signed By: 11/09/22 1614 Normal [facility] Calcium [Mass/volume] in Ser um or PlasmaOrdered By: Nicole Posadas on 11-09-2022 Calcium [Mass/Vol] 9.7 mg/dL 8.6-10.3 [facility] Carbon dioxide, total [Moles /volume] in Serum or PlasmaOrdered By: Nicole Posadas on 11-09-2022 CO2 [Moles/Vol] 28.6 mmol/L 21.0-31.0 [facility] Chloride [Moles/volume] in S erika or PlasmaOrdered By: Nicole Posadas on 11-09-2022 Chloride [Moles/Vol] 107 mmol/L 98-107 [facility] Color Auto (U)Ordered By: Reshma Posadas on 11-09-2022 Color (U) Yellow Yellow [facility] Complete Blood Count Auto Di ffon 11-09-2022 Basophils (Bld) [#/Vol] 0.1 10*3/uL Normal 0.0-0.2 [facility] Comment on above: Result Comment: PERF ORMED BY: [place] [address] PATHOLOGIST DIPLOMATIC COURIER PAULA RODRIGUES M.D. Performed By: #### C BC, LIPASE, CMP #### [facility] [address] [place] [address] Basophils/100 WBC (Bld) 0.9 % Normal . [facility] Comment on above: Performed By: #### C BC, LIPASE, CMP #### [facility] [address] [place] [address] Eosinophils (Bld) [#/Vol] 0.1 10*3/uL Normal 0.0-0.45 [facility] Comment on above: Performed By: #### C BC, LIPASE, CMP #### [facility] [address] [place] [address] [place] Eosinophils/100 WBC (Bld) 1.6 % Normal . [facility] Comment on above: Performed By: #### C BC, LIPASE, CMP #### [facility] [address] [place] [address] Erythrocyte distribution width (RBC) [Ratio] 13.6 % Normal 11.9-15.3 [facility] Comment on above: Performed By: #### C BC, LIPASE, CMP #### [facility] [address] [place] [address] [place] Hematocrit (Bld) [Volume fraction] 44.4 % Normal 34.0-46.4 [facility] Comment on above: Performed By: #### C BC, LIPASE, CMP #### [facility] [address] [place] [address] Hemoglobin (Bld) [Mass/Vol] 14.9 g/dL Normal 11.8-15.4 [facility] Comment on above: Performed By: #### C BC, LIPASE, CMP #### [facility] [address] [place] [address] [place] Lymphocytes (Bld) [#/Vol] 2.2 10*3/uL Normal 1.00-4.8 [facility] Comment on above: Performed By: #### C BC, LIPASE, CMP #### [facility] [address] [place] [address] [place] Lymphocytes/100 WBC (Bld) 24.0 % Normal . [facility] Comment on above: Performed By: #### C BC, LIPASE, CMP #### [facility] [address] MCH (RBC) [Entitic mass] 32.8 pg Normal 24.7-34.3 [facility] Comment on above: Performed By: #### C BC, LIPASE, CMP #### [facility] [address] MCV (RBC) [Entitic vol] 98.2 fL Normal 80-100 [facility] Comment on above: Performed By: #### C BC, LIPASE, CMP #### [facility] [address] Mean Corpuscular HGB Conc 33.4 g/dL Normal 32.0-35.0 [facility] Comment on above: Performed By: #### C BC, LIPASE, CMP #### [facility] [address] [place] [address] [place] Monocytes (Bld) [#/Vol] 0.8 10*3/uL Normal 0.0-0.8 [facility] Comment on above: Performed By: #### C BC, LIPASE, CMP #### [facility] [address] [place] [address] [place] Monocytes/100 WBC (Bld) 18.76 % Normal 0.00-20.00 [facility] Comment on above: Performed By: #### C BC, LIPASE, CMP #### [facility] [address] [place] [address] [place] Monocytes/100 WBC (Bld) 8.1 % Normal . [facility] Comment on above: Performed By: #### C BC, LIPASE, CMP #### [facility] [address] Neutrophils (Bld) [#/Vol] 6.1 10*3/uL Normal 1.8-7.7 [facility] Comment on above: Performed By: #### C BC, LIPASE, CMP #### [facility] [address] Neutrophils/100 WBC (Bld) 65.4 % Normal . [facility] Comment on above: Performed By: #### C BC, LIPASE, CMP #### [facility] [address] NRBC% 0.0 /100{WBC} Normal 0-0.5 [facility] Comment on above: Performed By: #### C BC, LIPASE, CMP #### [facility] [address] Platelet mean volume (Bld) [Entitic vol] 8.3 fL Normal 6.3-10.7 [facility] Comment on above: Performed By: #### C BC, LIPASE, CMP #### [facility] [address] Platelets (Bld) [#/Vol] 246 10*3/uL Normal 150-450 [facility] Comment on above: Performed By: #### C BC, LIPASE, CMP #### [facility] [address] RBC (Bld) [#/Vol] 4.52 10*6/uL Normal 3.60-5.00 [facility] Comment on above: Performed By: #### C BC, LIPASE, CMP #### [facility] [address] [place] [address] [place] WBC (Bld) [#/Vol] 9.3 10*3/uL Normal 3.8-11.6 [facility] Comment on above: Performed By: #### C BC, LIPASE, CMP #### [facility] [address] Comprehensive Metabolic Pane demetrio 11-09-2022 Albumin [Mass/Vol] 4.4 g/dL Normal 3.5-5.7 [facility] Comment on above: Performed By: #### C BC, LIPASE, CMP #### [address] Albumin/Globulin [Mass ratio] 1.6 {ratio} Normal [facility] Comment on above: Performed By: #### C BC, LIPASE, CMP #### [address] ALP [Catalytic activity/Vol] 126 U/L High 34-104 [facility] Comment on above: Performed By: #### C BC, LIPASE, CMP #### [address] ALT [Catalytic activity/Vol] 12 U/L Normal 7-52 [facility] Comment on above: Performed By: #### C BC, LIPASE, CMP #### [address] Anion gap [Moles/Vol] 8.1 mmol/L Normal 6.0-15.0 [facility] Comment on above: Performed By: #### C BC, LIPASE, CMP #### [address] AST [Catalytic activity/Vol] 17 U/L Normal 13-39 [facility] Comment on above: Performed By: #### C BC, LIPASE, CMP #### [address] Bilirubin [Mass/Vol] 0.3 mg/dL Normal 0.3-1.0 [facility] Comment on above: Performed By: #### C BC, LIPASE, CMP #### [address] Calcium [Mass/Vol] 9.7 mg/dL Normal 8.6-10.3 [facility] Comment on above: Performed By: #### C BC, LIPASE, CMP #### [address] Chloride [Moles/Vol] 107 mmol/L Normal 98-107 [facility] Comment on above: Performed By: #### C BC, LIPASE, CMP #### [address] CO2 [Moles/Vol] 28.6 mmol/L Normal 21.0-31.0 [facility] Comment on above: Performed By: #### C BC, LIPASE, CMP #### [address] Creatinine [Mass/Vol] 0.78 mg/dL Normal 0.60-1.20 [facility] Comment on above: Performed By: #### C BC, LIPASE, CMP #### [address] Creatinine Clr Calc Pharmacy 69.00 [facility] Comment on above: Performed By: #### C BC, LIPASE, CMP #### [address] GFR/1.73 sq M.predicted MDRD (S/P/Bld) [Vol rate/Area] mL/min/{1.73_m2} [facility] Comment on above: Performed By: #### C BC, LIPASE, CMP #### [address] Globulin (S) [Mass/Vol] 2.7 g/dL [facility] Comment on above: Performed By: #### C BC, LIPASE, CMP #### [address] Glucose [Mass/Vol] 96 mg/dL Normal 70-100 [facility] Comment on above: Result Comment: [place] Glucose Reference Range is dependent on time and content of last meal. Glucose of more than 200 mg/dL in a nonstressed, ambulatory subject supports the diagnosis of Diabetes Mellitus. ADA recommended reference range Performed By: #### C BC, LIPASE, CMP #### [address] Potassium [Moles/Vol] 3.7 mmol/L Normal 3.5-5.1 [facility] Comment on above: Performed By: #### C BC, LIPASE, CMP #### [facility] [address] Protein [Mass/Vol] 7.1 g/dL Normal 6.4-8.9 [facility] Comment on above: Performed By: #### C BC, LIPASE, CMP #### [facility] [address] [place] [address] [place] Sodium [Moles/Vol] 140 mmol/L Normal 136-145 [facility] Comment on above: Performed By: #### C BC, LIPASE, CMP #### [facility] [address] Urea nitrogen [Mass/Vol] 6 mg/dL Low 7-25 [facility] Comment on above: Performed By: #### C BC, LIPASE, CMP #### [facility] [address] Creatinine [Mass/volume] in Serum or PlasmaOrdered By: Nicole Posadas on 11-09-2022 Creatinine [Mass/Vol] 0.78 mg/dL 0.60-1.20 [facility] ECG 12 lead ECGon 11-09-2022 ECG 12 lead ECG [facility] [place] [address] [place] [address] Electrocardiograph Report Signed Patient: Chioma Arciniega MR#: [id number] : 1970 Acct:[id number] Age/Sex: 52 / F ADM Date: 11/09/22 Loc: ER Room: Type: [facility] ER Attending Dr: Ordering Provider: Nicole [...] By Agustin Llanes MD 06/29 0147 Normal [facility] Eosinophils Auto (Bld) [#/Vo l]Ordered By: Nicole Posadas on 11-09-2022 Eosinophils (Bld) [#/Vol] 0.1 10*3/uL 0.0-0.45 [facility] Eosinophils/100 WBC Auto (Bl d)Ordered By: Nicole Posadas on 11-09-2022 Eosinophils/100 WBC (Bld) 1.6 % . [facility] Erythrocyte distribution wid th Auto (RBC) [Ratio]Ordered By: Nicole Posadas on 11-09-2022 Erythrocyte distribution width (RBC) [Ratio] 13.6 % 11.9-15.3 [facility] Globulin Calc (S) [Mass/Vol] Ordered By: Nicole Posadas on 11-09-2022 Globulin (S) [Mass/Vol] 2.7 g/dL [facility] Glucose [Mass/volume] in Ser um or PlasmaOrdered By: Nicole Posadas on 11-09-2022 Glucose [Mass/Vol] 96 mg/dL 70-100 [facility] Comment on above: ADA recommended refe rence rangeRandom Glucose Reference Range is dependent on time and content of last meal. Glucose of more than 200 mg/dL in a nonstressed, ambulatory subject supports the diagnosis of Diabetes Mellitus. Hematocrit Auto (Bld) [Volum e fraction]Ordered By: Nicole Posadas on 11-09-2022 Hematocrit (Bld) [Volume fraction] 44.4 % 34.0-46.4 [facility] Hemoglobin [Mass/volume] in BloodOrdered By: Nicole Posadas on 11-09-2022 Hemoglobin (Bld) [Mass/Vol] 14.9 g/dL 11.8-15.4 [facility] Ketones Auto test strip (U) [Mass/Vol]Ordered By: Nicole Posadas on 11-09-2022 Ketones (U) [Mass/Vol] Negative Negative [facility] Leukocytes [#/volume] correc aurelia for nucleated erythrocytes in Blood by Automated counOrdered By: Nicole Posadas on 11-09-2022 WBC corrected for nucl RBC Auto (Bld) [#/Vol] 9.3 10*3/uL 3.8-11.6 [facility] Lipaseon 11-09-2022 Lipase [Catalytic activity/Vol] 78.0 U/L Normal 11.0-82.0 [facility] Comment on above: Result Comment: PERF ORMED BY: [place] [address] PATHOLOGIST DIPLOMATIC COURIER PAULA RODRIGUES M.D. Performed By: #### U A #### [address] Lipase [Enzymatic activity/v olume] in Serum or PlasmaOrdered By: Nicole Posadas on 11-09-2022 Lipase [Catalytic activity/Vol] 78.0 U/L 11.0-82.0 [facility] Lymphocytes Auto (Bld) [#/Vo l]Ordered By: Nicole Posadas on 11-09-2022 Lymphocytes (Bld) [#/Vol] 2.2 10*3/uL 1.00-4.8 [facility] Lymphocytes/100 WBC Auto (Bl d)Ordered By: Nicole Posadas on 11-09-2022 Lymphocytes/100 WBC (Bld) 24.0 % . [facility] MCH Auto (RBC) [Entitic mass ]Ordered By: Nicole Posadas on 11-09-2022 MCH (RBC) [Entitic mass] 32.8 pg 24.7-34.3 [facility] MCHC Auto (RBC) [Mass/Vol]Or dered By: Nicole Posadas on 11-09-2022 MCHC (RBC) [Mass/Vol] 33.4 g/dL 32.0-35.0 [facility] MCV Auto (RBC) [Entitic vol] Ordered By: Nicole Posadas on 11-09-2022 MCV (RBC) [Entitic vol] 98.2 fL 80-100 [facility] Monocyte distribution width [Entitic volume] in Blood by AutomatedOrdered By: Nicole Posadas on 11-09-2022 Monocyte distribution width Auto (Bld) [Entitic vol] 18.76 % 0.00-20.00 [facility] Monocytes Auto (Bld) [#/Vol] Ordered By: Nicole Posadas on 11-09-2022 Monocytes (Bld) [#/Vol] 0.8 10*3/uL 0.0-0.8 [facility] Monocytes/100 WBC Auto (Bld) Ordered By: Nicole Posadas on 11-09-2022 Monocytes/100 WBC (Bld) 8.1 % . [facility] Neutrophils Auto (Bld) [#/Vo l]Ordered By: Nicole Posadas on 11-09-2022 Neutrophils (Bld) [#/Vol] 6.1 10*3/uL 1.8-7.7 [facility] Neutrophils/100 WBC Auto (Bl d)Ordered By: Nicole Posadas on 11-09-2022 Neutrophils/100 WBC (Bld) 65.4 % . [facility] Nitrite Test strip Ql (U)Ord ered By: Nicole Posadas on 11-09-2022 Nitrite Ql (U) Negative Negative [facility] No Panel InformationOrdered By: Nicole Posadas on 11-09-2022 Estimated GFR (CKD-EPI) > 60.0 mL/Min [facility] Creatinine Clearance (Chem 69.00 [facility] Nucleated erythrocytes [Pres ence] in Blood by Automated countOrdered By: Nicole Posadas on 11-09-2022 Nucleated RBC Auto Ql (Bld) 0.0 /100{WBC} 0-0.5 [facility] Platelet mean volume Auto (B ld) [Entitic vol]Ordered By: Nicole Posadas on 11-09-2022 Platelet mean volume (Bld) [Entitic vol] 8.3 fL 6.3-10.7 [facility] Platelets Auto (Bld) [#/Vol] Ordered By: Nicole Posadas on 11-09-2022 Platelets (Bld) [#/Vol] 246 10*3/uL 150-450 [facility] Potassium [Moles/volume] in Serum or PlasmaOrdered By: Nicole Posadas on 11-09-2022 Potassium [Moles/Vol] 3.7 mmol/L 3.5-5.1 [facility] Protein Auto test strip (U) [Mass/Vol]Ordered By: Nicole Posadas on 11-09-2022 Protein (U) [Mass/Vol] Negative Negative [facility] Protein [Mass/volume] in Ser um or PlasmaOrdered By: Nicole Posadas on 11-09-2022 Protein [Mass/Vol] 7.1 g/dL 6.4-8.9 [facility] RBC Auto (Bld) [#/Vol]Ordere d By: Nicole Posadas on 11-09-2022 RBC (Bld) [#/Vol] 4.52 10*6/uL 3.60-5.00 [facility] Serum or plasma albumin/glob ulin mass ratioOrdered By: [facility] Albumin/Globulin [Mass ratio] 1.6 {ratio} [facility] Serum or plasma anion gap de terminationOrdered By: Nicole [facility] 11-09-2022 Anion gap [Moles/Vol] 8.1 mmol/L 6.0-15.0 [facility] Sodium [Moles/volume] in Ser um or PlasmaOrdered By: Nicole [facility] Sodium [Moles/Vol] 140 mmol/L 136-145 [facility] Specific gravity Auto test s trip (U) [Rel density]Ordered By: [facility] Specific gravity (U) [Rel density] 1.012 1.001-1.030 [facility] Troponin I High Sensitivityo n 11-09-2022 Troponin I High Sensitivity 3.0 pg/mL Normal 0.0-15.0 [facility] Comment on above: Result Comment: PERF ORMED BY: [facility] [address] [address] PATHOLOGIST DIPLOMATIC COURIER PAULA RODRIGUES M.D. Performed By: #### H S TROP #### [facility] [address] [place] [address] [place] Troponin I.cardiac [Mass/vol ume] in Serum or Plasma by Detection limit <= 0.01 ng/Ordered By: Nicole Posadas on 11-09-2022 Troponin I.cardiac DL <= 0.01 ng/mL [Mass/Vol] 3.0 pg/mL 0.0-15.0 [facility] Urea nitrogen [Mass/volume] in Serum or PlasmaOrdered By: Nicole Posadas on 11-09-2022 Urea nitrogen [Mass/Vol] 6 mg/dL 09-30 [facility] Urinalysison 11-09-2022 Appearance (U) Clear Normal Clear [facility] Comment on above: Order Comment: Name Collection Type:: Clean-Voided Midstream Performed By: #### U A #### [facility] [address] [place] [address] [place] Bilirubin,Urine Negative Normal Negative [facility] Comment on above: Order Comment: Name Collection Type:: Clean-Voided Midstream Performed By: #### U A #### [facility] [address] [place] [address] [place] Color (U) Yellow Normal Yellow [facility] Comment on above: Order Comment: Name Collection Type:: Clean-Voided Midstream Performed By: #### U A #### [facility] [address] [place] [address] [place] Glucose Ql (U) Normal Normal Normal [facility] Comment on above: Order Comment: Name Collection Type:: Clean-Voided Midstream Performed By: #### U A #### [facility] [address] [place], [place] [id number] [place] Ketones Ql (U) Negative Normal Negative [facility] Comment on above: Order Comment: Name Collection Type:: Clean-Voided Midstream Performed By: #### U A #### [facility] [address] [place], [place] [id number] [place] Leukocyte esterase Test strip Ql (U) Negative Normal Negative [facility] Comment on above: Order Comment: Name Collection Type:: Clean-Voided Midstream Performed By: #### U A #### [place] [address] [place] Nitrite,Urine Negative Normal Negative [facility] Comment on above: Order Comment: Name Collection Type:: Clean-Voided Midstream Performed By: #### U A #### [address] Occult Blood,Urine Negative Normal Negative [facility] Comment on above: Order Comment: Name Collection Type:: Clean-Voided Midstream Result Comment: PERF ORMED BY: [place] [address] PATHOLOGIST DIPLOMATIC COURIER PAULA RODRIGUES M.D. Performed By: #### U A #### [address] pH (U) 5.5 [pH] Normal 5.0-9.0 [facility] Comment on above: Order Comment: Name Collection Type:: Clean-Voided Midstream Performed By: #### U A #### [address] Protein,Urine Negative Normal Negative [facility] Comment on above: Order Comment: Name Collection Type:: Clean-Voided Midstream Performed By: #### U A #### [address] Specificy [place],Urine 1.012 Normal 1.001-1.030 [facility] Comment on above: Order Comment: Name Collection Type:: Clean-Voided Midstream Performed By: #### U A #### [address] Urobilinogen,Urine Normal Normal Normal [facility] Comment on above: Order Comment: Name Collection Type:: Clean-Voided Midstream Performed By: #### U A #### [address] Urine clarity by refractomet ry automatedOrdered By: Nicole Posaads on 11-09-2022 Clarity Refractometry automated (U) Clear Clear [facility] Urine glucose measurement by automated test strip (mass/volume)Ordered By: Nicole Posadas on 11-09-2022 Glucose Auto test strip (U) [Mass/Vol] Normal mg/dL Normal [facility] Urine hemoglobin detection b y automated test stripOrdered By: Nicole Posadas on 11-09-2022 Hemoglobin Auto test strip Ql (U) Negative Negative [facility] Urine leukocyte esterase det ection by automated test stripOrdered By: Nicole Posadas on 11-09-2022 Leukocyte esterase Auto test strip Ql (U) Negative Negative [facility] Urobilinogen Auto test strip (U) [Mass/Vol]Ordered By: Nicole Posadas on 11-09-2022 Urobilinogen (U) [Mass/Vol] Normal mg/dL Normal [facility] WBC Auto (Bld) [#/Vol]Ordere d By: Nicole Posadas on 11-09-2022 WBC (Bld) [#/Vol] 9.3 10*3/uL 3.8-11.6 [facility] pH Auto test strip (U)Ordere d By: Nicole Posadas on 11-09-2022 pH (U) 5.5 [pH] 5.0-9.0 [facility] UPPER EUSon 08-12-2022 [facility] Gastroenterology Patient Name: Chioma Rainey Procedure Date: 08/12/2022 11:09 AM Date of : 1970 Admit Type: Outpatient Age: 52 Room: EUS Proc Room 01 Gender: Female Note Status: Finalized Attending MD: Sabrina Dee MD, MPH, [id number] Procedure: Upper EUS Indications: Chronic pancreatitis, Epigastric abdominal pain, Celiac plexus block for pain secondary to chronic pancreatitis, Dysphagia, Follow-up of esophageal stenosis, For therapy of esophageal stenosis Providers: Sabrina Dee MD, MPH (Doctor), Kolby Gifford RN (Nurse), Elba Faustin (Nurse), Mary Gaviria Combine Operator (Combine Operator) Referring MD: Elie Nichols MD (Referring MD) [...] by the physician, the nurse and the fire equipment repairer inspector in the procedure room. Mental Status Examination: [...] Amylase [Catalytic activity/Vol] 92 U/L Normal 25-115 [facility] Comment on above: Performed By: #### L IPA, CMP, CRP, NAT #### [facility] [address] [place] [address] Dr. Keturah Fisher CBC AUTO DIFFon 06-13-2022 BASO # 0.1 103/ul Normal 0.0-0.1 [facility] Comment on above: Performed By: #### L IPA, CMP, CRP, NAT #### [facility] [address] [place] [address] Dr. Keturah Fisher Basophils/100 WBC (Bld) 0.7 % Normal 0.2-2.0 [facility] Comment on above: Performed By: #### L IPA, CMP, CRP, NAT #### [facility] [address] [place] [address] Dr. Keturah Fisher EO # 0.1 103/ul Normal 0.0-0.7 [facility] Comment on above: Performed By: #### L IPA, CMP, CRP, NAT #### [facility] [address] [place] [address] Dr. Keturah Fisher Eosinophils/100 WBC (Bld) 1.1 % Normal 0.9-7.0 [facility] Comment on above: Performed By: #### L IPA, CMP, CRP, NAT #### [facility] [address] [place] [address] Dr. Keturah Fisher Erythrocyte distribution width (RBC) [Ratio] 13.0 % Normal 11.0-15.0 [facility] Comment on above: Performed By: #### L IPA, CMP, CRP, NAT #### [facility] [address] [place] [address] Dr. Keturah Fisher Hematocrit (Bld) [Volume fraction] 40.5 % Normal 36.0-48.0 [facility] Comment on above: Performed By: #### L IPA, CMP, CRP, NAT #### [facility] [address] [address] [address] Keturah Fisher Hemoglobin (Bld) [Mass/Vol] 13.9 g/dL Normal 12.0-16.0 [facility] Comment on above: Performed By: #### L IPA, CMP, CRP, NAT #### [facility] [address] [place] [address] Dr. Keturah Fisher IG # 0.03 10e3/ul Normal 0.00-0.03 [facility] Comment on above: Performed By: #### L IPA, CMP, CRP, NAT #### [facility] [address] [place] [address] Dr. Keturah Fisher IG % 0.3 % Normal 0.0-0.5 [facility] Comment on above: Performed By: #### L IPA, CMP, CRP, NAT #### [facility] [address] [place] [address] Dr. Keturah Fisher LYMPH # 2.9 103/ul Normal 1.2-3.8 [facility] Comment on above: Performed By: #### L IPA, CMP, CRP, NAT #### [facility] [address] [place] [address] Dr. Keturah Fisher Lymphocytes/100 WBC (Bld) 25.0 % Normal 20.5-60.0 [facility] Comment on above: Performed By: #### L IPA, CMP, CRP, NAT #### [facility] [address] [place] [address] Dr. Keturah Fisher MANUAL DIFF REQ NO Normal [facility] Comment on above: Performed By: #### L IPA, CMP, CRP, NAT #### [facility] [address] [place] [address] Dr. Keturah Fisher MCH (RBC) [Entitic mass] 33.3 pg Normal 26.7-34.0 [facility] Comment on above: Performed By: #### L IPA, CMP, CRP, NAT #### [facility] [address] [place] [address] Dr. Keturah Fisher MCHC (RBC) [Mass/Vol] 34.3 g/dL Normal 29.9-35.2 [facility] Comment on above: Performed By: #### L IPA, CMP, CRP, NAT #### [facility] [address] [address] [address] Keturah Fisher MCV (RBC) [Entitic vol] 96.9 fL Normal 81.0-99.0 [facility] Comment on above: Performed By: #### L IPA, CMP, CRP, NAT #### [facility] [address] [place] [address] Dr. Keturah Fisher MONO # 0.7 103/ul Normal 0.3-0.8 [facility] Comment on above: Performed By: #### L IPA, CMP, CRP, NAT #### [facility] [address] [place] [address] Dr. Keturah Fisher Monocytes/100 WBC (Bld) 5.6 % Normal 1.7-12.0 [facility] Comment on above: Performed By: #### L IPA, CMP, CRP, NAT #### [facility] [address] [place] [address] Dr. Keturah Fisher NEUT # 7.8 103/ul Critically high 1.4-6.5 [facility] Comment on above: Performed By: #### L IPA, CMP, CRP, NAT #### [facility] [address] [place] [address] Dr. Keturah Fisher Neutrophils/100 WBC (Bld) 67.3 % Normal 43.0-75.0 [facility] Comment on above: Performed By: #### L IPA, CMP, CRP, NAT #### [facility] [address] [place] [address] Dr. Keturah Fisher Platelet mean volume (Bld) [Entitic vol] 9.5 fL Normal 9.5-13.5 [facility] Comment on above: Performed By: #### L IPA, CMP, CRP, NAT #### [facility] [address] [place] [address] Dr. Keturah Fisher PLT 227 103/ul Normal 150-450 [facility] Comment on above: Performed By: #### L IPA, CMP, CRP, NAT #### [facility] [address] [place] [address] Dr. Keturah Fisher RBC 4.18 106/ul Critically low 4.20-5.40 [facility] Comment on above: Performed By: #### L IPA, CMP, CRP, NAT #### [facility] [address] [place] [address] Dr. Keturah Fisher WBC 11.5 103/ul Critically high 4.0-11.0 [facility] Comment on above: Performed By: #### L IPA, CMP, CRP, NAT #### [facility] [address] [place] [address] Dr. Keturah Fisher LIPASEon 06-13-2022 Lipase [Catalytic activity/Vol] 168.0 U/L Normal 73.0-393.0 [facility] Comment on above: Performed By: #### L IPA, CMP, CRP, NAT #### [facility] [address] [place] [address] Dr. Keturah Fisher PROF 14(COMP METB)on 023 Albumin [Mass/Vol] 3.6 g/dL Normal 3.4-5.0 [facility] Comment on above: Performed By: #### L IPA, CMP, CRP, NAT #### [facility] [address] [place] [address] Dr. Keturah Fisher Albumin/Globulin [Mass ratio] 1.1 {ratio} Normal [facility] Comment on above: Performed By: #### L IPA, CMP, CRP, NAT #### [facility] [address] [place] [address] Dr. Keturah Fisher ALP [Catalytic activity/Vol] 132 U/L Critically high 46-116 [facility] Comment on above: Performed By: #### L IPA, CMP, CRP, NAT #### [facility] [address] [place] [address] Dr. Keturah Fisher ALT [Catalytic activity/Vol] 20 U/L Normal 14-59 [facility] Comment on above: Performed By: #### L IPA, CMP, CRP, NAT #### [facility] [address] [place] [address] Dr. Keturah Fisher Anion gap [Moles/Vol] 13.7 mmol/L Normal [facility] Comment on above: Performed By: #### L IPA, CMP, CRP, NAT #### [facility] [address] [address] [address] Keturah Fisher AST [Catalytic activity/Vol] 19 U/L Normal 15-37 [facility] Comment on above: Performed By: #### L IPA, CMP, CRP, NAT #### [facility] [address] [address] [address] Keturah Fisher Bilirubin [Mass/Vol] 0.1 mg/dL Critically low 0.2-1.0 [facility] Comment on above: Performed By: #### L IPA, CMP, CRP, NAT #### [facility] [address] [place] [address] Dr. Keturah Fisher Calcium [Mass/Vol] 10.1 mg/dL Normal 8.5-10.1 [facility] Comment on above: Performed By: #### L IPA, CMP, CRP, NAT #### [facility] [address] [place] [address] Dr. Keturah Fisher Chloride [Moles/Vol] 104 mmol/L Normal 98-107 [facility] Comment on above: Performed By: #### L IPA, CMP, CRP, NAT #### [facility] [address] [place] [address] Dr. Keturah Fisher CO2 [Moles/Vol] 26.7 mmol/L Normal 21.0-32.0 [facility] Comment on above: Performed By: #### L IPA, CMP, CRP, NAT #### [facility] [address] [place] [address] Dr. Keturah Fisher Creatinine [Mass/Vol] 0.83 mg/dL Normal 0.55-1.02 [facility] Comment on above: Performed By: #### L IPA, CMP, CRP, NAT #### [facility] [address] [place] [address] Dr. Keturah Fisher EGFR-AF BANGLADESHI >60 Normal >=60 [facility] Comment on above: Performed By: #### L IPA, CMP, CRP, NAT #### [facility] [address] [address] [address] Keturah Fisher EGFR-NON AF BANGLADESHI >60 Normal >=60 [facility] Comment on above: Performed By: #### L IPA, CMP, CRP, NAT #### [facility] [address] [address] [address] Keturah Fisher Globulin (S) [Mass/Vol] 3.4 g/dL Normal [facility] Comment on above: Performed By: #### L IPA, CMP, CRP, NAT #### [facility] [address] [address] [address] Keturah Fisher Glucose [Mass/Vol] 115 mg/dL Critically high 74-106 [facility] Comment on above: Performed By: #### L IPA, CMP, CRP, NAT #### [facility] [address] [place] [address] Dr. Keturah Fisher Potassium [Moles/Vol] 3.4 mmol/L Critically low 3.5-5.1 [facility] Comment on above: Performed By: #### L IPA, CMP, CRP, NAT #### [facility] [address] [address] [address] Keturah Fisher Protein [Mass/Vol] 7.0 g/dL Normal 6.4-8.2 [facility] Comment on above: Performed By: #### L IPA, CMP, CRP, NAT #### [facility] [address] [address] [address] Keturah Fisher Sodium [Moles/Vol] 141 mmol/L Normal 136-145 [facility] Comment on above: Performed By: #### L IPA, CMP, CRP, NAT #### [facility] [address] [place] [address] Dr. Keturah Fisher Urea nitrogen [Mass/Vol] 9.0 mg/dL Normal 7.0-18.0 [facility] Comment on above: Performed By: #### L IPA, CMP, CRP, NAT #### [facility] [address] [place] [address] Dr. Keturah Fisher Urea nitrogen/Creatinine [Mass ratio] 10.8 mg/mg Normal [facility] Comment on above: Performed By: #### L IPA, CMP, CRP, NAT #### [facility] [address] [address] [address] Keturah Fisher XR ABD FLAT UP_PA [...] ION KRUSE Date: 2022-06-13 17:10 Normal [facility] AMYLASEon 03-29-2022 Amylase [Catalytic activity/Vol] 141 U/L Critically high 25-115 [facility] Comment on above: Performed By: #### L IVER, LIPA, BMP, NAT ####[facility] [address] [address]Dr. Keturah Fisher CBC AUTO DIFFon 03-29-2022 BASO # 0.1 103/ul Normal 0.0-0.1 [facility] Comment on above: Performed By: #### L IPA, CMP, CRP, NAT #### [facility] [address] [address] [address] Keturah Fisher Basophils/100 WBC (Bld) 0.6 % Normal 0.2-2.0 [facility] Comment on above: Performed By: #### L IPA, CMP, CRP, NAT #### [facility] [address] [address] [address] Keturah Fisher EO # 0.1 103/ul Normal 0.0-0.7 [facility] Comment on above: Performed By: #### L IPA, CMP, CRP, NAT #### [facility] [address] [address] [address] Keturah Fisher Eosinophils/100 WBC (Bld) 0.7 % Critically low 0.9-7.0 [facility] Comment on above: Performed By: #### L IPA, CMP, CRP, NAT #### [facility] [address] [address] [address] Keturah Fisher Erythrocyte distribution width (RBC) [Ratio] 12.9 % Normal 11.0-15.0 [facility] Comment on above: Performed By: #### L IPA, CMP, CRP, NAT #### [facility] [address] [address] [address] Keturah Fisher Hematocrit (Bld) [Volume fraction] 39.7 % Normal 36.0-48.0 [facility] Comment on above: Performed By: #### L IPA, CMP, CRP, NAT #### [facility] [address] [address] [address] Keturah Fisher Hemoglobin (Bld) [Mass/Vol] 14.7 g/dL Normal 12.0-16.0 [facility] Comment on above: Performed By: #### L IPA, CMP, CRP, NAT #### [facility] [address] [address] [address] Keturah Fisher IG # 0.04 10e3/ul Critically high 0.00-0.03 [facility] Comment on above: Performed By: #### L IPA, CMP, CRP, NAT #### [facility] [address] [address] [address] Keturah Fisher IG % 0.4 % Normal 0.0-0.5 [facility] Comment on above: Performed By: #### L IPA, CMP, CRP, NAT #### [facility] [address] [address] [address] Keturah Fisher LYMPH # 2.1 103/ul Normal 1.2-3.8 [facility] Comment on above: Performed By: #### L IPA, CMP, CRP, NAT #### [facility] [address] [address] [address] Keturah Fisher Lymphocytes/100 WBC (Bld) 21.2 % Normal 20.5-60.0 [facility] Comment on above: Performed By: #### L IPA, CMP, CRP, NAT #### [facility] [address] [place] [address] Dr. Keturah Fisher MANUAL DIFF REQ NO Normal [facility] Comment on above: Performed By: #### L IPA, CMP, CRP, NAT #### [facility] [address] [place] [address] Dr. Keturah Fisher MCH (RBC) [Entitic mass] 33.0 pg Normal 26.7-34.0 [facility] Comment on above: Performed By: #### L IPA, CMP, CRP, NAT #### [facility] [address] [place] [address] Dr. Keturah Fisher MCHC (RBC) [Mass/Vol] 37.0 g/dL Critically high 29.9-35.2 [facility] Comment on above: Performed By: #### L IPA, CMP, CRP, NAT #### [facility] [address] [place] [address] Dr. Keturah Fisher MCV (RBC) [Entitic vol] 89.0 fL Normal 81.0-99.0 [facility] Comment on above: Performed By: #### L IPA, CMP, CRP, NAT #### [facility] [address] [place] [address] Dr. Keturah Fisher MONO # 1.0 103/ul Critically high 0.3-0.8 [facility] Comment on above: Performed By: #### L IPA, CMP, CRP, NAT #### [facility] [address] [place] [address] Dr. Keturah Fisher Monocytes/100 WBC (Bld) 10.3 % Normal 1.7-12.0 [facility] Comment on above: Performed By: #### L IPA, CMP, CRP, NAT #### [facility] [address] [place] [address] Dr. Keturah Fisher NEUT # 6.5 103/ul Normal 1.4-6.5 [facility] Comment on above: Performed By: #### L IPA, CMP, CRP, NAT #### [facility] [address] [address] [address] Keturah Fisher Neutrophils/100 WBC (Bld) 66.8 % Normal 43.0-75.0 [facility] Comment on above: Performed By: #### L IPA, CMP, CRP, NAT #### [facility] [address] [address] [address] Keturah Fisher Platelet mean volume (Bld) [Entitic vol] 9.2 fL Critically low 9.5-13.5 [facility] Comment on above: Performed By: #### L IPA, CMP, CRP, NAT #### [facility] [address] [address] [address] Keturah Fisher PLT 229 103/ul Normal 150-450 [facility] Comment on above: Performed By: #### L IPA, CMP, CRP, NAT #### [facility] [address] [place] [address] Dr. Keturah Fisher RBC 4.46 106/ul Normal 4.20-5.40 [facility] Comment on above: Performed By: #### L IPA, CMP, CRP, NAT #### [facility] [address] [place] [address] Dr. Keturah Fisher WBC 9.7 103/ul Normal 4.0-11.0 [facility] Comment on above: Performed By: #### L IPA, CMP, CRP, NAT #### [facility] [address] [place] [address] Dr. Keturah Fisher LACTATE/LACTIC ACIDon 2022 Lactate [Moles/Vol] 0.5 mmol/L Normal 0.4-1.9 [facility] Comment on above: Performed By: #### L IPA, CMP, CRP, NAT #### [facility] [address] [place] [address] Dr. Keturah Fisher LIPASEon 03-29-2022 Lipase [Catalytic activity/Vol] 308.0 U/L Normal 73.0-393.0 [facility] Comment on above: Performed By: #### L IVER, LIPA, BMP, NAT ####[facility] [address] [address]Dr. Keturah Fisher LIVER PROFILEon 03-29-2022 Albumin [Mass/Vol] 3.3 g/dL Critically low 3.4-5.0 [facility] Comment on above: Performed By: #### L IVER, LIPA, BMP, NAT ####[facility] [address] [address]Dr. Keturah Fisher Albumin/Globulin [Mass ratio] 0.8 {ratio} Normal [facility] Comment on above: Performed By: #### L IVER, LIPA, BMP, NAT ####[facility] [address] [place], [place] [address]Dr. Keturah Fisher ALP [Catalytic activity/Vol] 182 U/L Critically high 46-116 [facility] Comment on above: Performed By: #### L IVER, LIPA, BMP, NAT ####[facility] [address] [place], [place] [address]Dr. Keturah Fisher ALT [Catalytic activity/Vol] 16 U/L Normal 14-59 [facility] Comment on above: Performed By: #### L IVER, LIPA, BMP, NAT ####[facility] [address] [place], [place] [address]Dr. Keturah Fisher AST [Catalytic activity/Vol] 26 U/L Normal 15-37 [facility] Comment on above: Performed By: #### L IVER, LIPA, BMP, NAT ####[facility] [address] [place], [place] [address]Dr. Keturah Phillip BILI, CONJUGATED 0.0 mg/dL Normal 0.0-0.2 [facility] Comment on above: Performed By: #### L IVER, LIPA, BMP, NAT ####[facility] [address] [place], [place] [address]Dr. Keturah Fisher Bilirubin [Mass/Vol] 0.3 mg/dL Normal 0.2-1.0 [facility] Comment on above: Performed By: #### L IVER, LIPA, BMP, NAT ####[facility] [address] [address]Dr. Keturah Fisher Globulin (S) [Mass/Vol] 3.9 g/dL Normal [facility] Comment on above: Performed By: #### L IVER, LIPA, BMP, NAT ####[facility] [address] [address]Dr. Keturah Fisher Protein [Mass/Vol] 7.2 g/dL Normal 6.4-8.2 [facility] Comment on above: Performed By: #### L IVER, LIPA, BMP, NAT ####[facility] [address] [place], [place] [address]Dr. Keturah Fisher PROF CHEM 8 (BAS METB)on Anion gap [Moles/Vol] 14.6 mmol/L Normal [facility] Comment on above: Performed By: #### L IVER, LIPA, BMP, NAT ####[facility] [address] [place], [place] [address]Dr. Keturah Fisher Calcium [Mass/Vol] 10.1 mg/dL Normal 8.5-10.1 [facility] Comment on above: Performed By: #### L IVHERMINIA, LIPA, BMP, NAT ####[facility] [address] [place], [place] [address]Dr. Keturah Fisher Chloride [Moles/Vol] 104 mmol/L Normal 98-107 [facility] Comment on above: Performed By: #### L IVER, LIPA, BMP, NAT ####[facility] [address] [place], [place] [address]Dr. Keturah Fisher CO2 [Moles/Vol] 24.8 mmol/L Normal 21.0-32.0 [facility] Comment on above: Performed By: #### L IVER, LIPA, BMP, NAT ####[facility] [id number] [place], [place] [address]Dr. Keturah Fisher Creatinine [Mass/Vol] 0.61 mg/dL Normal 0.55-1.02 [facility] Comment on above: Performed By: #### L IVER, LIPA, BMP, NAT ####[facility] [address] [place] [address]Dr. Keturah Fisher EGFR-AF BANGLADESHI >60 Normal >=60 [facility] Comment on above: Performed By: #### L IVER, LIPA, BMP, NAT ####[facility] [address] [place] [address]Dr. Keturah Fisher EGFR-NON AF BANGLADESHI >60 Normal >=60 [facility] Comment on above: Performed By: #### L IVER, LIPA, BMP, NAT ####[facility] [address] [place] [address]Dr. Keturah Fisher Glucose [Mass/Vol] 98 mg/dL Normal 74-106 [facility] Comment on above: Performed By: #### L IVER, LIPA, BMP, NAT ####[facility] [address] [place] [address]Dr. Keturah Fisher Potassium [Moles/Vol] 4.4 mmol/L Normal 3.5-5.1 [facility] Comment on above: Performed By: #### L IVER, LIPA, BMP, NAT ####[facility] [address] [place], [place] [address]Dr. Keturah Fisher Sodium [Moles/Vol] 139 mmol/L Normal 136-145 [facility] Comment on above: Performed By: #### L IVER, LIPA, BMP, NAT ####[facility] [address] [place] [address]Dr. Keturah Fisher Urea nitrogen [Mass/Vol] 7.0 mg/dL Normal 7.0-18.0 [facility] Comment on above: Performed By: #### L IVER, LIPA, BMP, NAT ####[facility] [address] [place] [address]Dr. Keturah Fisher Urea nitrogen/Creatinine [Mass ratio] 11.5 mg/mg Normal [facility] Comment on above: Performed By: #### L IVER, LIPA, BMP, NAT ####[facility] [address] [place] [address]Dr. Keturah Fisher Albumin [Mass/volume] in Ser um or PlasmaOrdered By: Agustin Llanes on 03-22-2022 Albumin [Mass/Vol] 4.1 g/dL 3.2-5.5 [facility] Automated erythrocytes count in urine sediment (number/area)Ordered By: Agustin Llanes on 03-22-2022 RBC Auto (Urine sed) [#/Area] 3-4 [HPF] 0-4 [facility] Automated leukocytes count i n urine sediment (number/area)Ordered By: Agustin Llanes on 03-22-2022 WBC Auto (Urine sed) [#/Area] 10-19 [HPF] 0-4 [facility] Basic Metabolic Panelon 03-09 Anion gap [Moles/Vol] 12.6 mmol/L Normal 6.0-15.[address] [facility] Comment on above: Performed By: #### H EPATIC, LIPASE, CBC, BMP #### [facility] [address] [place] [address] [place] Calcium [Mass/Vol] 9.9 mg/dL Normal 8.2-10.2 [facility] Comment on above: Performed By: #### H EPATIC, LIPASE, CBC, BMP #### [facility] [address] [place] [id number] [place] Chloride [Moles/Vol] 103 mmol/L Normal 95-114 [facility] Comment on above: Performed By: #### H EPATIC, LIPASE, CBC, BMP #### [facility] [address] [place] [id number] [place] CO2 [Moles/Vol] 26.9 mmol/L Normal 22.0-30.0 [facility] Comment on above: Performed By: #### H EPATIC, LIPASE, CBC, BMP #### [facility] [address] [place] [id number] [place] Creatinine [Mass/Vol] 0.74 mg/dL Normal 0.44-1.03 [facility] Comment on above: Performed By: #### H EPATIC, LIPASE, CBC, BMP #### [facility] [address] [place] [id number] [place] Creatinine Clr Calc Pharmacy 70.34 Normal [facility] Comment on above: Performed By: #### H EPATIC, LIPASE, CBC, BMP #### [facility] [address] Estimated GFR ( [place] > 60 [facility] Comment on above: Result Comment: GFR estimated reference range: According to KDOQI guidelines, <60 ml/min/1.73m2 is sufficient to diagnose a patient with chronic kidney disease. Performed By: #### H EPATIC, LIPASE, CBC, BMP #### [facility] [address] Estimated GFR (Non- Am > 60 [facility] Comment on above: Performed By: #### H EPATIC, LIPASE, CBC, BMP #### [address] Glucose [Mass/Vol] 106 mg/dL High 70-100 [facility] Comment on above: Result Comment: [place] Glucose Reference Range is dependent on time and content of last meal. Glucose of more than 200 mg/dL in a nonstressed, ambulatory subject supports the diagnosis of Diabetes Mellitus. ADA recommended reference range Performed By: #### H EPATIC, LIPASE, CBC, BMP #### [address] Potassium [Moles/Vol] 4.5 mmol/L Normal 3.5-5.1 [facility] Comment on above: Performed By: #### H EPATIC, LIPASE, CBC, BMP #### [address] Sodium [Moles/Vol] 138 mmol/L Normal 136-146 [facility] Comment on above: Performed By: #### H EPATIC, LIPASE, CBC, BMP #### [address] Urea nitrogen [Mass/Vol] 8 mg/dL Low 9-23 [facility] Comment on above: Performed By: #### H EPATIC, LIPASE, CBC, BMP #### [address] Basophils Auto (Bld) [#/Vol] Ordered By: Agustin Llanes on 03-22-2022 Basophils (Bld) [#/Vol] 0.1 10*3/uL 0.0-0.2 [facility] Basophils/100 WBC Auto (Bld) Ordered By: Agustin Llanes on 03-22-2022 Basophils/100 WBC (Bld) 0.9 % . [facility] Bilirubin Test strip Ql (U)O rdered By: Agustin Llanes on 03-22-2022 Bilirubin Ql (U) Negative Negative [facility] Color Auto (U)Ordered By: Vita Llanes on 03-22-2022 Color (U) Yellow Yellow [facility] Complete Blood Count Auto Di ffon 03-22-2022 Basophils (Bld) [#/Vol] 0.1 10*3/uL Normal 0.0-0.2 [facility] Comment on above: Result Comment: PERF ORMED BY: [place] [address] PATHOLOGIST DIPLOMATIC COURIER PAULA RODRIGUES M.D. Performed By: #### H EPATIC, LIPASE, CBC, BMP #### [facility] [address] Basophils/100 WBC (Bld) 0.9 % Normal . [facility] Comment on above: Performed By: #### H EPATIC, LIPASE, CBC, BMP #### [facility] [address] [place] [address] [place] Eosinophils (Bld) [#/Vol] 0.1 10*3/uL Normal 0.0-0.45 [facility] Comment on above: Performed By: #### H EPATIC, LIPASE, CBC, BMP #### [facility] [address] [place] [address] [place] Eosinophils/100 WBC (Bld) 0.7 % Normal . [facility] Comment on above: Performed By: #### H EPATIC, LIPASE, CBC, BMP #### [facility] [address] Erythrocyte distribution width (RBC) [Ratio] 13.9 % Normal 11.9-15.3 [facility] Comment on above: Performed By: #### H EPATIC, LIPASE, CBC, BMP #### [address] Hematocrit (Bld) [Volume fraction] 45.7 % Normal 34.0-46.4 [facility] Comment on above: Performed By: #### H EPATIC, LIPASE, CBC, BMP #### [address] Hemoglobin (Bld) [Mass/Vol] 15.2 g/dL Normal 11.8-15.4 [facility] Comment on above: Performed By: #### H EPATIC, LIPASE, CBC, BMP #### [address] Lymphocytes (Bld) [#/Vol] 2.2 10*3/uL Normal 1.00-4.8 [facility] Comment on above: Performed By: #### H EPATIC, LIPASE, CBC, BMP #### [address] Lymphocytes/100 WBC (Bld) 18.0 % Normal . [facility] Comment on above: Performed By: #### H EPATIC, LIPASE, CBC, BMP #### [address] MCH (RBC) [Entitic mass] 32.5 pg Normal 24.7-34.3 [facility] Comment on above: Performed By: #### H EPATIC, LIPASE, CBC, BMP #### [address] MCV (RBC) [Entitic vol] 98.0 fL Normal 80-100 [facility] Comment on above: Performed By: #### H EPATIC, LIPASE, CBC, BMP #### [address] Mean Corpuscular HGB Conc 33.2 g/dL Normal 32.0-35.0 [facility] Comment on above: Performed By: #### H EPATIC, LIPASE, CBC, BMP #### [address] Monocytes (Bld) [#/Vol] 1.0 10*3/uL High 0.0-0.8 [facility] Comment on above: Performed By: #### H EPATIC, LIPASE, CBC, BMP #### [facility] [address] Monocytes/100 WBC (Bld) 18.78 % Normal 0.00-20.00 [facility] Comment on above: Performed By: #### H EPATIC, LIPASE, CBC, BMP #### [address] Monocytes/100 WBC (Bld) 8.0 % Normal . [facility] Comment on above: Performed By: #### H EPATIC, LIPASE, CBC, BMP #### [facility] [address] [place] [address] Neutrophils (Bld) [#/Vol] 9.0 10*3/uL High 1.8-7.7 [facility] Comment on above: Performed By: #### H EPATIC, LIPASE, CBC, BMP #### [address] Neutrophils/100 WBC (Bld) 72.4 % Normal . [facility] Comment on above: Performed By: #### H EPATIC, LIPASE, CBC, BMP #### [place] [address] [place] NRBC% 0.0 /100{WBC} Normal 0-0.5 [facility] Comment on above: Performed By: #### H EPATIC, LIPASE, CBC, BMP #### [facility] [address] [place] [address] [place] Platelet mean volume (Bld) [Entitic vol] 8.0 fL Normal 6.3-10.7 [facility] Comment on above: Performed By: #### H EPATIC, LIPASE, CBC, BMP #### [facility] [address] [place] [address] [place] Platelets (Bld) [#/Vol] 266 10*3/uL Normal 150-450 [facility] Comment on above: Performed By: #### H EPATIC, LIPASE, CBC, BMP #### [facility] [address] RBC (Bld) [#/Vol] 4.67 10*6/uL Normal 3.60-5.00 [facility] Comment on above: Performed By: #### H EPATIC, LIPASE, CBC, BMP #### [facility] [address] [place] [address] [place] WBC (Bld) [#/Vol] 12.4 10*3/uL High 3.8-11.6 [facility] Comment on above: Performed By: #### H EPATIC, LIPASE, CBC, BMP #### [facility] [address] Creatinine and Glomerular fi ltration rate.predicted panel (S/P/Bld)Ordered By: Agustin Llanes on 03-22-2022 Creatinine [Mass/Vol] 0.74 mg/dL 0.44-1.03 [facility] Dipstick and Microscopicon 0 03-22-2022 Appearance (U) Clear Normal Clear [facility] Comment on above: Order Comment: Name Collection Type:: Clean-Voided Midstream Performed By: #### U A #### [address] Bacteria,Urine 1+ High None Seen [facility] Comment on above: Order Comment: Name Collection Type:: Clean-Voided Midstream Performed By: #### U A #### [facility] [address] [place] [address] [place] Bilirubin,Urine Negative Normal Negative [facility] Comment on above: Order Comment: Name Collection Type:: Clean-Voided Midstream Performed By: #### U A #### [facility] [address] [place] [address] [place] Color (U) Yellow Normal Yellow [facility] Comment on above: Order Comment: Name Collection Type:: Clean-Voided Midstream Performed By: #### U A #### [facility] [address] [place] [address] [place] Glucose Ql (U) Normal Normal Normal [facility] Comment on above: Order Comment: Name Collection Type:: Clean-Voided Midstream Performed By: #### U A #### [facility] [address] [place] [address] [place] Hyaline Casts,Urine 0-8 Normal 0-8 [facility] Comment on above: Order Comment: Name Collection Type:: Clean-Voided Midstream Performed By: #### U A #### [facility] [address] [place] [address] Ketones Ql (U) Negative Normal Negative [facility] Comment on above: Order Comment: Name Collection Type:: Clean-Voided Midstream Performed By: #### U A #### [address] Leukocyte esterase Test strip Ql (U) 2+ High Negative [facility] Comment on above: Order Comment: Name Collection Type:: Clean-Voided Midstream Performed By: #### U A #### [address] Nitrite,Urine Positive High Negative [facility] Comment on above: Order Comment: Name Collection Type:: Clean-Voided Midstream Performed By: #### U A #### [facility] [address] [place] [address] Occult Blood,Urine Negative Normal Negative [facility] Comment on above: Order Comment: Name Collection Type:: Clean-Voided Midstream Performed By: #### U A #### [facility] [address] [place] [address] pH (U) 5.5 [pH] Normal 5.0-9.0 [facility] Comment on above: Order Comment: Name Collection Type:: Clean-Voided Midstream Performed By: #### U A #### [facility] [address] [place] [address] [place] Protein,Urine Negative Normal Negative [facility] Comment on above: Order Comment: Name Collection Type:: Clean-Voided Midstream Performed By: #### U A #### [place] [address] [place] RBC,Urine 3-4 Normal 0-4 [facility] Comment on above: Order Comment: Name Collection Type:: Clean-Voided Midstream Performed By: #### U A #### [facility] [address] [place] [address] Specificy [place],Urine 1.011 Normal 1.001-1.030 [facility] Comment on above: Order Comment: Name Collection Type:: Clean-Voided Midstream Performed By: #### U A #### [facility] [address] [place] [address] Squamous Epithelial Cell,Urine 1-2 Normal 0-2 [facility] Comment on above: Order Comment: Name Collection Type:: Clean-Voided Midstream Performed By: #### U A #### [facility] [address] [place] [address] Urobilinogen,Urine Normal Normal Normal [facility] Comment on above: Order Comment: Name Collection Type:: Clean-Voided Midstream Performed By: #### U A #### [facility] [address] [place] [address] WBC,Urine 10-19 High 0-4 [facility] Comment on above: Order Comment: Name Collection Type:: Clean-Voided Midstream Performed By: #### U A #### [facility] [address] [place] [address] Direct bilirubin measurement Ordered By: Agustin Llanes on 03-22-2022 Bilirubin.direct [Mass/Vol] 0.3 mg/dL 0.0-0.4 [facility] Eosinophils Auto (Bld) [#/Vo l]Ordered By: Agustin Llanes on 03-22-2022 Eosinophils (Bld) [#/Vol] 0.1 10*3/uL 0.0-0.45 [facility] Eosinophils/100 WBC Auto (Bl d)Ordered By: Agustin Llanes on 03-22-2022 Eosinophils/100 WBC (Bld) 0.7 % . [facility] Erythrocyte distribution wid th Auto (RBC) [Ratio]Ordered By: Agustin Llanes on 03-22-2022 Erythrocyte distribution width (RBC) [Ratio] 13.9 % 11.9-15.3 [facility] Estimated glomerular filtrat ion rate (GFR) non- AmericanOrdered By: Agustin Llanes on 03-22-2022 GFR/1.73 sq M.predicted among non-blacks MDRD (S/P/Bld) [Vol rate/Area] > 60 mL/Min [facility] Globulin Calc (S) [Mass/Vol] Ordered By: Agustin Llanes on 03-22-2022 Globulin (S) [Mass/Vol] 3.1 g/dL [facility] HCG ( test) IA.rapi d Ql (U)Ordered By: Agustin Llanes on 03-22-2022 HCG ( test) Ql (U) Negative [facility] HCG,Urineon 03-22-2022 Beta HCG ( test) Ql (U) Negative Normal [facility] Comment on above: Order Comment: Name Collection Type:: Clean-Voided Midstream Result Comment: PERF ORMED BY: [place] [address] PATHOLOGIST DIPLOMATIC COURIER PAULA RODRIGUES M.D. Performed By: #### U A #### [address] Hematocrit Auto (Bld) [Volum e fraction]Ordered By: Agustin Llanes on 03-22-2022 Hematocrit (Bld) [Volume fraction] 45.7 % 34.0-46.4 [facility] Hemoglobin [Mass/volume] in BloodOrdered By: Agustin Llanes on 03-22-2022 Hemoglobin (Bld) [Mass/Vol] 15.2 g/dL 11.8-15.4 [facility] Hepatic Panelon 03-22-2022 Albumin [Mass/Vol] 4.1 g/dL Normal 3.2-5.5 [facility] Comment on above: Performed By: #### H EPATIC, LIPASE, CBC, BMP #### [facility] [address] [place] [address] Albumin/Globulin [Mass ratio] 1.3 {ratio} Normal [facility] Comment on above: Performed By: #### H EPATIC, LIPASE, CBC, BMP #### [facility] [address] [place] [address] [place] ALP [Catalytic activity/Vol] 156 U/L High 32-92 [facility] Comment on above: Performed By: #### H EPATIC, LIPASE, CBC, BMP #### [facility] [address] [place] [address] ALT [Catalytic activity/Vol] 19 U/L Normal 10-60 [facility] Comment on above: Performed By: #### H EPATIC, LIPASE, CBC, BMP #### [facility] [address] AST [Catalytic activity/Vol] 29 U/L Normal 10-42 [facility] Comment on above: Performed By: #### H EPATIC, LIPASE, CBC, BMP #### [address] Bilirubin [Mass/Vol] 0.5 mg/dL Normal 0.3-1.2 [facility] Comment on above: Performed By: #### H EPATIC, LIPASE, CBC, BMP #### [address] Bilirubin,Indirect 0.2 mg/dL Normal [facility] Comment on above: Performed By: #### H EPATIC, LIPASE, CBC, BMP #### [address] Bilirubin.indirect [Mass/Vol] 0.3 mg/dL Normal 0.0-0.4 [facility] Comment on above: Performed By: #### H EPATIC, LIPASE, CBC, BMP #### [facility] [address] [place] [address] Globulin (S) [Mass/Vol] 3.1 g/dL Normal [facility] Comment on above: Performed By: #### H EPATIC, LIPASE, CBC, BMP #### [facility] [address] [place] [address] Protein [Mass/Vol] 7.2 g/dL Normal 6.1-7.9 [facility] Comment on above: Performed By: #### H EPATIC, LIPASE, CBC, BMP #### [address] Ketones Auto test strip (U) [Mass/Vol]Ordered By: Agustin Llanes on 03-22-2022 Ketones (U) [Mass/Vol] Negative Negative [facility] - Chemistry and C hemistry - challengeOrdered By: Agustin Llanes on 03-22-2022 Lipase [Catalytic activity/Vol] 122.0 U/L [facility] Laboratory - UrinalysisOrder ed By: Agustin Llanes on 03-22-2022 Hyaline casts LM Ql (Urine sed) 0-8 [LPF] 0-8 [facility] Leukocytes [#/volume] correc aurelia for nucleated erythrocytes in Blood by Automated counOrdered By: Agustin Llanes on 03-22-2022 WBC corrected for nucl RBC Auto (Bld) [#/Vol] 12.4 10*3/uL 3.8-11.6 [facility] Lipaseon 03-22-2022 Lipase [Catalytic activity/Vol] 122.0 U/L High [address] [place] [address] Comment on above: Result Comment: PERF ORMED BY: [place] [address] PATHOLOGIST DIPLOMATIC COURIER PAULA RODRIGUES M.D. Performed By: #### H EPATIC, LIPASE, CBC, BMP #### [address] Lymphocytes Auto (Bld) [#/Vo l]Ordered By: Agustin Llanes on 03-22-2022 Lymphocytes (Bld) [#/Vol] 2.2 10*3/uL 1.00-4.8 [facility] Lymphocytes/100 WBC Auto (Bl d)Ordered By: Agustin Llanes on 03-22-2022 Lymphocytes/100 WBC (Bld) 18.0 % . [facility] MCH Auto (RBC) [Entitic mass ]Ordered By: Agustin Llanes on 03-22-2022 MCH (RBC) [Entitic mass] 32.5 pg 24.7-34.3 [facility] MCHC Auto (RBC) [Mass/Vol]Or dered By: Agustin Llanes on 03-22-2022 MCHC (RBC) [Mass/Vol] 33.2 g/dL 32.0-35.0 [facility] MCV Auto (RBC) [Entitic vol] Ordered By: Agustin Llanes on 03-22-2022 MCV (RBC) [Entitic vol] 98.0 fL 80-100 [facility] Monocyte distribution width [Entitic volume] in Blood by AutomatedOrdered By: Agustin Llanes on 03-22-2022 Monocyte distribution width Auto (Bld) [Entitic vol] 18.78 % 0.00-20.00 [facility] Monocytes Auto (Bld) [#/Vol] Ordered By: Agustin Llanes on 03-22-2022 Monocytes (Bld) [#/Vol] 1.0 10*3/uL 0.0-0.8 [facility] Monocytes/100 WBC Auto (Bld) Ordered By: Agustin Llanes on 03-22-2022 Monocytes/100 WBC (Bld) 8.0 % . [facility] Neutrophils Auto (Bld) [#/Vo l]Ordered By: Agustin Llanes on 03-22-2022 Neutrophils (Bld) [#/Vol] 9.0 10*3/uL 1.8-7.7 [facility] Neutrophils/100 WBC Auto (Bl d)Ordered By: Agustin Llanes on 03-22-2022 Neutrophils/100 WBC (Bld) 72.4 % . [facility] Nitrite Test strip Ql (U)Ord ered By: Agustin Llanes on 03-22-2022 Nitrite Ql (U) Positive Negative [facility] No Panel InformationOrdered By: Agustin Llanes on 03-22-2022 Estimated GFR () > 60 mL/Min [facility] Comment on above: GFR estimated refere nce range: According to KDOQI guidelines, <60 ml/min/1.73m2 is sufficient to diagnose a patient with chronic kidney disease. Pharmacy Creatinine Clearance (Chem 70.34 [facility] Nucleated erythrocytes [Pres ence] in Blood by Automated countOrdered By: Agustin Llanes on 03-22-2022 Nucleated RBC Auto Ql (Bld) 0.0 /100{WBC} 0-0.5 [facility] Platelet mean volume Auto (B ld) [Entitic vol]Ordered By: Agustin Llanes on 03-22-2022 Platelet mean volume (Bld) [Entitic vol] 8.0 fL 6.3-10.7 [facility] Platelets Auto (Bld) [#/Vol] Ordered By: Agustin Llanes on 03-22-2022 Platelets (Bld) [#/Vol] 266 10*3/uL 150-450 [facility] Protein Auto test strip (U) [Mass/Vol]Ordered By: Agustin Llanes on 03-22-2022 Protein (U) [Mass/Vol] Negative Negative [facility] Protein [Mass/volume] in Ser um or PlasmaOrdered By: Agustin Llanes on 03-22-2022 Protein [Mass/Vol] 7.2 g/dL 6.1-7.9 [facility] RBC Auto (Bld) [#/Vol]Ordere d By: Agustin Llanes on 03-22-2022 RBC (Bld) [#/Vol] 4.67 10*6/uL 3.60-5.00 [facility] Serum or plasma alanine hughes otransferase measurement without P-5'-P (enzymatic activiOrdered By: Agustin Llanes on 03-22-2022 ALT No additional P-5'-P [Catalytic activity/Vol] 19 U/L 10-60 [facility] Serum or plasma albumin/glob ulin mass ratioOrdered By: Agustin Llanes on 03-22-2022 Albumin/Globulin [Mass ratio] 1.3 {ratio} [facility] Serum or plasma alkaline jaqueline sphatase measurement (enzymatic activity/volume)Ordered By: Agustin Llanes on 03-22-2022 ALP [Catalytic activity/Vol] 156 U/L 32-92 [facility] Serum or plasma anion gap de terminationOrdered By: Agustin Llanes on 03-22-2022 Anion gap [Moles/Vol] 12.6 mmol/L 6.0-15.0 [facility] Serum or plasma aspartate am inotransferase measurement (enzymatic activity/volume)Ordered By: Agustin Llanes on 03-22-2022 AST [Catalytic activity/Vol] 29 U/L 10-42 [facility] Serum or plasma calcium priscilla urement (mass/volume)Ordered By: Agustin Llanes on 03-22-2022 Calcium [Mass/Vol] 9.9 mg/dL 8.2-10.2 [facility] Serum or plasma chloride daron surement (moles/volume)Ordered By: Agustin Llnaes on 03-22-2022 Chloride [Moles/Vol] 103 mmol/L 95-114 [facility] Serum or plasma glucose priscilla urement (mass/volume)Ordered By: Agustin Llanes on 03-22-2022 Glucose [Mass/Vol] 106 mg/dL 70-100 [facility] Comment on above: ADA recommended refe rence rangeRandom Glucose Reference Range is dependent on time and content of last meal. Glucose of more than 200 mg/dL in a nonstressed, ambulatory subject supports the diagnosis of Diabetes Mellitus. Serum or plasma non-glucuron idated bilirubin measurement (mass/volume)Ordered By: Agustin Llanes on 03-22-2022 Bilirubin.indirect [Mass/Vol] 0.2 mg/dL [facility] Serum or plasma potassium me asurement (moles/volume)Ordered By: Agustin Llanes on 03-22-2022 Potassium [Moles/Vol] 4.5 mmol/L 3.5-5.1 [facility] Serum or plasma sodium measu rement (moles/volume)Ordered By: Agustin Llanes on 03-22-2022 Sodium [Moles/Vol] 138 mmol/L 136-146 [facility] Serum or plasma total biliru bin measurement (mass/volume)Ordered By: Agustin Llanes on 03-22-2022 Bilirubin [Mass/Vol] 0.5 mg/dL 0.3-1.2 [facility] Serum or plasma total carbon dioxide measurement (moles/volume)Ordered By: Agustin Llanes on 03-22-2022 CO2 [Moles/Vol] 26.9 mmol/L 22.0-30.0 [facility] Serum or plasma urea nitroge n measurement (mass/volume)Ordered By: Agustin Llanes on 03-22-2022 Urea nitrogen [Mass/Vol] 8 mg/dL 9-23 [facility] Specific gravity Auto test s trip (U) [Rel density]Ordered By: Agustin Llanes on 03-22-2022 Specific gravity (U) [Rel density] 1.011 1.001-1.030 [facility] Squamous epithelial cells de tection in urine sediment by light microscopyOrdered By: Agustin Llanes on 03-22-2022 Epithelial cells.squamous LM Ql (Urine sed) 1-2 [HPF] 0-2 [facility] Urine Cultureon 03-22-2022 Bacteria identified Cx Nom (U) ORGANISM: Escherichia coli (O:ESCCOL) Ona Count >100,000 Aerobic SIMI Charge (NMIC56) --- [...] RESISTANT TO ALL B-LACTAM DRUGS. PERFORMED BY: [facility] [address] [place] [address] PATHOLOGIST DIPLOMATIC COURIER PAULA RODRIGUES M.D. Normal [facility] Comment on above: Performed By: #### U A #### [facility] [address] Urine bacteria detection by automated methodOrdered By: Agustin Llanes on 03-22-2022 Bacteria Auto Ql (U) 1+ None Seen [facility] Urine clarity by refractomet ry automatedOrdered By: Agustin Llanes on 03-22-2022 Clarity Refractometry automated (U) Clear Clear [facility] Urine glucose measurement by automated test strip (mass/volume)Ordered By: Agustin Llanes on 03-22-2022 Glucose Auto test strip (U) [Mass/Vol] Normal mg/dL Normal [facility] Urine hemoglobin detection b y automated test stripOrdered By: Agustin Llanes on 03-22-2022 Hemoglobin Auto test strip Ql (U) Negative Negative [facility] Urine leukocyte esterase det ection by automated test stripOrdered By: Agustin Llanes on 03-22-2022 Leukocyte esterase Auto test strip Ql (U) 2+ Negative [facility] Urobilinogen Auto test strip (U) [Mass/Vol]Ordered By: Agustin Llanes on 03-22-2022 Urobilinogen (U) [Mass/Vol] Normal mg/dL Normal [facility] WBC Auto (Bld) [#/Vol]Ordere d By: Agustin Llanes on 03-22-2022 WBC (Bld) [#/Vol] 12.4 10*3/uL 3.8-11.6 [facility] pH Auto test strip (U)Ordere d By: Agustin Llanes on 03-22-2022 pH (U) 5.5 [pH] 5.0-9.0 [facility] AMYLASEon 03-19-2022 Amylase [Catalytic activity/Vol] 297 U/L Critically high 25-115 [facility] Comment on above: Performed By: #### L IPA, CMP, CRP, NAT #### [facility] [address] [address] [address] Keturah Fisher CBC AUTO DIFFon 03-19-2022 BASO # 0.1 103/ul Normal 0.0-0.1 [facility] Comment on above: Performed By: #### L IPA, CMP, CRP, NAT #### [facility] [address] [address] [address] Keturah Fisher Basophils/100 WBC (Bld) 0.6 % Normal 0.2-2.0 [facility] Comment on above: Performed By: #### L IPA, CMP, CRP, NAT #### [facility] [address] [place] [address] Dr. Keturah Fisher EO # 0.1 103/ul Normal 0.0-0.7 [facility] Comment on above: Performed By: #### L IPA, CMP, CRP, NAT #### [facility] [address] [place] [address] Dr. Keturah Fisher Eosinophils/100 WBC (Bld) 0.5 % Critically low 0.9-7.0 [facility] Comment on above: Performed By: #### L IPA, CMP, CRP, NAT #### [facility] [address] [place] [address] Dr. Keturah Fisher Erythrocyte distribution width (RBC) [Ratio] 13.4 % Normal 11.0-15.0 [facility] Comment on above: Performed By: #### L IPA, CMP, CRP, NAT #### [facility] [address] [place] [address] Dr. Keturah Fisher Hemoglobin (Bld) [Mass/Vol] 15.7 g/dL Normal 12.0-16.0 [facility] Comment on above: Performed By: #### L IPA, CMP, CRP, NAT #### [facility] [address] [place] [address] Dr. Keturah Fisher IG # 0.06 10e3/ul Critically high 0.00-0.03 [facility] Comment on above: Performed By: #### L IPA, CMP, CRP, NAT #### [facility] [address] [place] [address] Dr. Keturah Fisher IG % 0.4 % Normal 0.0-0.5 [facility] Comment on above: Performed By: #### L IPA, CMP, CRP, NAT #### [facility] [address] [place] [address] Dr. Keturah Fisher LYMPH # 2.6 103/ul Normal 1.2-3.8 [facility] Comment on above: Performed By: #### L IPA, CMP, CRP, NAT #### [facility] [address] [place] [address] Dr. Keturah Fisher Lymphocytes/100 WBC (Bld) 18.1 % Critically low 20.5-60.0 [facility] Comment on above: Performed By: #### L IPA, CMP, CRP, NAT #### [facility] [address] [place] [address] Dr. Keturah Fisher MANUAL DIFF REQ NO Normal [facility] Comment on above: Performed By: #### L IPA, CMP, CRP, NAT #### [facility] [address] [place] [address] Dr. Keturah Fisher MCH (RBC) [Entitic mass] 32.4 pg Normal 26.7-34.0 [facility] Comment on above: Performed By: #### L IPA, CMP, CRP, NAT #### [facility] [address] [place] [address] Dr. Keturha Fisher MCHC (RBC) [Mass/Vol] 32.5 g/dL Normal 29.9-35.2 [facility] Comment on above: Performed By: #### L IPA, CMP, CRP, NAT #### [facility] [address] [place] [address] Dr. Keturah Fisher MCV (RBC) [Entitic vol] 99.8 fL Critically high 81.0-99.0 [facility] Comment on above: Performed By: #### L IPA, CMP, CRP, NAT #### [facility] [address] [place] [address] Dr. Keturah Fisher MONO # 0.9 103/ul Critically high 0.3-0.8 [facility] Comment on above: Performed By: #### L IPA, CMP, CRP, NAT #### [facility] [address] [place] [address] Dr. Keturah Fisher Monocytes/100 WBC (Bld) 5.9 % Normal 1.7-12.0 [facility] Comment on above: Performed By: #### L IPA, CMP, CRP, NAT #### [facility] [address] [place] [address] Dr. Keturah Fisher NEUT # 10.8 103/ul Critically high 1.4-6.5 [facility] Comment on above: Performed By: #### L IPA, CMP, CRP, NAT #### [facility] [address] [place] [address] Dr. Keturah Fisher Neutrophils/100 WBC (Bld) 74.5 % Normal 43.0-75.0 [facility] Comment on above: Performed By: #### L IPA, CMP, CRP, NAT #### [facility] [address] [place] [address] Dr. Keturah Fisher Platelet mean volume (Bld) [Entitic vol] 9.7 fL Normal 9.5-13.5 [facility] Comment on above: Performed By: #### L IPA, CMP, CRP, NAT #### [facility] [address] [place] [address] Dr. Keturah Fisher PLT 279 103/ul Normal 150-450 [facility] Comment on above: Performed By: #### L IPA, CMP, CRP, NAT #### [facility] [address] [place] [address] Dr. Keturah Fisher RBC 4.84 106/ul Normal 4.20-5.40 [facility] Comment on above: Performed By: #### L IPA, CMP, CRP, NAT #### [facility] [address] [place] [address] Dr. Keturah Fisher WBC 14.5 103/ul Critically high 4.0-11.0 [facility] Comment on above: Performed By: #### L IPA, CMP, CRP, NAT #### [facility] [address] [place] [address] ABD/PELVIS WO CONon [...] by: AGUSTIN HIGHTOWER Date: 2022-03-19 19:10 Normal [facility] LIPASEon 03-19-2022 Lipase [Catalytic activity/Vol] 1573.0 U/L Critically high 73.0-393.0 [facility] Comment on above: Performed By: #### L IPA, CMP, CRP, NAT #### [facility] [address] [place], [place] [address] Dr. Keturah Fisher PROF 14(COMP METB)on 023 Albumin [Mass/Vol] 4.3 g/dL Normal 3.4-5.0 [facility] Comment on above: Performed By: #### L IPA, CMP, CRP, NAT #### [facility] [address] [place], [place] [address] Dr. Keturah Fisher Albumin/Globulin [Mass ratio] 1.1 {ratio} Normal [facility] Comment on above: Performed By: #### L IPA, CMP, CRP, NAT #### [facility] [address] [place] [address] Dr. Keturah Fisher ALP [Catalytic activity/Vol] 222 U/L Critically high 46-116 [facility] Comment on above: Performed By: #### L IPA, CMP, CRP, NAT #### [facility] [address] [place] [address] Dr. Keturah Fisher ALT [Catalytic activity/Vol] 18 U/L Normal 14-59 [facility] Comment on above: Performed By: #### L IPA, CMP, CRP, NAT #### [facility] [address] [place] [address] Dr. Keturah Fisher Anion gap [Moles/Vol] 10.7 mmol/L Normal [facility] Comment on above: Performed By: #### L IPA, CMP, CRP, NAT #### [facility] [address] [place] [address] Dr. Keturah Fisher AST [Catalytic activity/Vol] 19 U/L Normal 15-37 [facility] Comment on above: Performed By: #### L IPA, CMP, CRP, NAT #### [facility] [address] [place] [address] Dr. Keutrah Fisher Bilirubin [Mass/Vol] 0.2 mg/dL Normal 0.2-1.0 [facility] Comment on above: Performed By: #### L IPA, CMP, CRP, NAT #### [facility] [address] [place] [address] Dr. Keturah Fisher Calcium [Mass/Vol] 10.2 mg/dL Critically high 8.5-10.1 [facility] Comment on above: Performed By: #### L IPA, CMP, CRP, NAT #### [facility] [address] [place] [address] Dr. Keturah Fisher Chloride [Moles/Vol] 101 mmol/L Normal 98-107 [facility] Comment on above: Performed By: #### L IPA, CMP, CRP, NAT #### [facility] [address] [address] [address] Keturah Fisher CO2 [Moles/Vol] 29.1 mmol/L Normal 21.0-32.0 [facility] Comment on above: Performed By: #### L IPA, CMP, CRP, NAT #### [facility] [address] [address] [address] Keturah Fisher Creatinine [Mass/Vol] 0.73 mg/dL Normal 0.55-1.02 [facility] Comment on above: Performed By: #### L IPA, CMP, CRP, NAT #### [facility] [address] [address] [address] Keturah Fisher EGFR-AF BANGLADESHI >60 Normal >=60 [facility] Comment on above: Performed By: #### L IPA, CMP, CRP, NAT #### [facility] [address] [address] [address] Keturah Fisher EGFR-NON AF BANGLADESHI >60 Normal >=60 [facility] Comment on above: Performed By: #### L IPA, CMP, CRP, NAT #### [facility] [address] [address] [address] Keturah Fisher Globulin (S) [Mass/Vol] 4.0 g/dL Normal [facility] Comment on above: Performed By: #### L IPA, CMP, CRP, NAT #### [facility] [address] [address] [address] Keturah Fisher Glucose [Mass/Vol] 92 mg/dL Normal 74-106 [facility] Comment on above: Performed By: #### L IPA, CMP, CRP, NAT #### [facility] [address] [address] [address] Keturah Fisher Potassium [Moles/Vol] 3.8 mmol/L Normal 3.5-5.1 [facility] Comment on above: Performed By: #### L IPA, CMP, CRP, NAT #### [facility] [address] [address] [address] Keturah Fisher Protein [Mass/Vol] 8.3 g/dL Critically high 6.4-8.2 T [facility] Comment on above: Performed By: #### L IPA, CMP, CRP, NAT #### [facility] [address] [address] [address] Keturah Fisher Sodium [Moles/Vol] 137 mmol/L Normal 136-145 [facility] Comment on above: Performed By: #### L IPA, CMP, CRP, NAT #### [facility] [address] [address] [address] Keturah Fisher Urea nitrogen [Mass/Vol] 10.0 mg/dL Normal 7.0-18.0 [facility] Comment on above: Performed By: #### L IPA, CMP, CRP, NAT #### [facility] [address] [address] [address] Keturah Fisher Urea nitrogen/Creatinine [Mass ratio] 13.7 mg/mg Normal [facility] Comment on above: Performed By: #### L IPA, CMP, CRP, NAT #### [facility] [address] [address] [address] Keturah Fisher PROTIMEon 03-19-2022 INR Coag (PPP) [Relative time] {INR} Normal [facility] Comment on above: Performed By: #### P TT, PT ####[facility] [address] [address]DrGopal Fisher INR GUIDELINES SEE BELOW Normal [facility] Comment on above: Result Comment: KARLY RED INR: 2.0 - 3.0 CONDITIONS NOT LISTED BELOW 2.5 - 3.5 FOR PROSTHETIC HEART VALVE REPLACEMENT 2.5 - 3.5 RECURRENT THROMBOSIS Performed By: #### P TT, PT ####[facility] [address] [address]Dr. Keturah Fisher PT Coag (PPP) [Time] 9.4 s Normal 9.0-11.6 [facility] Comment on above: Performed By: #### P TT, PT ####[facility] [address] [address]Dr. Keturah Fisher PTTon 03-19-2022 aPTT Coag (Bld) [Time] 26.1 s Normal 22.3-36.2 [facility] Comment on above: Performed By: #### P TT, PT ####[facility] [address] [place], [place] [address]ScDr. Keturah Fisher TROPONIN, HIGH SENSITIVITYon 03-19-2022 HSTROP 4.0 pg/mL Normal 4.0-51.3 [facility] Comment on above: Result Comment: CUT- OFF POINTS HAVE BEEN ESTABLISHED BASED ON THE FOURTH UNIVERSAL DEFINITIONS OF MYOCARDIAL INFARCTION. THE UPPER REFERENCE LIMIT (URL) OF TROPONIN, DEFINED THE 99TH PERCENTILE OF cTnI DISTRIBUTION IN A REFERENCE POPULATION, HAS BEEN CONFIRMED THE DECISION THRESHOLD FOR [place] DIAGNOSIS. Performed By: #### L IPA, CMP, CRP, NAT #### [facility] [address] [place], [place] [address] Dr. Keturah Fisher UPPER EUSon 01-28-2022 [facility] Gastroenterology Patient Name: Chioma Rainey Procedure Date: 01/28/2022 8:55 AM Date of : 1970 Admit Type: Outpatient Age: 51 Room: EUS Proc Room 01 Gender: Female Note Status: Finalized Attending MD: Sabrina Dee MD, MPH, [id number] Procedure: Upper EUS Indications: Chronic pancreatitis, Celiac plexus block for pain secondary to chronic pancreatitis Providers: Sabrina Dee MD, MPH (Doctor), Akilah Gonzales, JOSE LUIS (Nurse), Lara Yost RN (Nurse), Montse Garcia, Combine Operator (Combine Operator), LOW Velazquez (Anesthesia Staff), Neri Goins MD [...] verified by the physician, the nurse, the fire equipment repairer inspector and the furniture repair technician in the procedure room. Mental Status [...] 15:34 PM TECHNIQUE: DXA scanning using a [employer] Advance bone densitometer at the [facility] was performed on 01/27/2022 15:34 PM CLINICAL [...] interpreted this study is a Certified Clinical Solar Installer Pv by the International Society of Clinical Densitometry Maulik Reed M.D., CCD. Normal [facility] IMPRESSION: Based on BMD and WHO criteria [...] interpreted this study is a Certified Clinical Solar Installer Pv by the International Society of Clinical Densitometry Maulik Reed M.D., [facility]. OLOGY EXAM: BONE DENSITY AXIAL (HIP, PELVIS, SPINE) 01/27/2022 15:34 PM TECHNIQUE: DXA scanning using a [employer] Advance bone densitometer at the [facility] was performed on 01/27/2022 15:34 PM CLINICAL [...] 15:34 PM TECHNIQUE: DXA scanning using a [employer] Advance bone densitometer at the [facility] was performed on 01/27/2022 15:34 PM CLINICAL [...] interpreted this study is a Certified Clinical Solar Installer Pv by the International Society of Clinical Densitometry Maulik Reed M.D., [facility]. [facility] Radiology Study observation (narrative) [facility] BONE DENSITY AXIAL (HIP, PEL VIS, SPINE)Ordered By: Maulik Reed on 01-27-2022 [facility] Work Phone: CBC AUTO DIFFon 01-15-2022 BASO # 0.1 103/ul Normal 0.0-0.1 [facility] Comment on above: Performed By: #### C BC ####[facility] [address] [place], [place] [address]Dr. Keturah Fisher Basophils/100 WBC (Bld) 0.9 % Normal 0.2-2.0 [facility] Comment on above: Performed By: #### C BC ####[facility] [address] [place], [place] [address]DrGopal Fisher EO # 0.2 103/ul Normal 0.0-0.7 [facility] Comment on above: Performed By: #### C BC ####[facility] [address] [place], [place] [address]DrGopal Fisher Eosinophils/100 WBC (Bld) 2.8 % Normal 0.9-7.0 [facility] Comment on above: Performed By: #### C BC ####[facility] [address] [place], [place] [address]DrGopal Fisher Erythrocyte distribution width (RBC) [Ratio] 12.9 % Normal 11.0-15.0 [facility] Comment on above: Performed By: #### C BC ####[facility] [address] [place], [place] [address]DrGopal Fisher Hematocrit (Bld) [Volume fraction] 41.7 % Normal 36.0-48.0 [facility] Comment on above: Performed By: #### C BC ####[facility] [address] [address]Dr. Keturah Fisher Hemoglobin (Bld) [Mass/Vol] 14.0 g/dL Normal 12.0-16.0 [facility] Comment on above: Performed By: #### C BC ####[facility] [address] [place], [place] [address]Dr. Keturah Fisher IG # 0.01 10e3/ul Normal 0.00-0.03 [facility] Comment on above: Performed By: #### C BC ####[facility] [address] [place], [place] [address]Dr. Keturah Phillip IG % 0.1 % Normal 0.0-0.5 [facility] Comment on above: Performed By: #### C BC ####[facility] [address] [place], [place] [address]DrGopal Keturah Phillip LYMPH # 2.4 103/ul Normal 1.2-3.8 [facility] Comment on above: Performed By: #### C BC ####[facility] [address] [place], [place] [address]DrGopal Keturah Phillip Lymphocytes/100 WBC (Bld) 32.0 % Normal 20.5-60.0 [facility] Comment on above: Performed By: #### C BC ####[facility] [address] [place], [place] [address]DrGopal Keturah Phillip MANUAL DIFF REQ NO Normal [facility] Comment on above: Performed By: #### C BC ####[facility] [address] [place], [place] [address]DrGopal Keturah Phillip MCH (RBC) [Entitic mass] 32.6 pg Normal 26.7-34.0 [facility] Comment on above: Performed By: #### C BC ####[facility] [address] [place], [place] [address]DrGopal Keturah Phillip MCHC (RBC) [Mass/Vol] 33.6 g/dL Normal 29.9-35.2 [facility] Comment on above: Performed By: #### C BC ####[facility] [address] [address]DrGopal Fisher MCV (RBC) [Entitic vol] 97.0 fL Normal 81.0-99.0 [facility] Comment on above: Performed By: #### C BC ####[facility] [address] [place], [place] [address]DrGopal Fisher MONO # 0.7 103/ul Normal 0.3-0.8 [facility] Comment on above: Performed By: #### C BC ####[facility] [address] [place], [place] [address]DrGopal Fisher Monocytes/100 WBC (Bld) 9.5 % Normal 1.7-12.0 [facility] Comment on above: Performed By: #### C BC ####[facility] [address] [place], [place] [address]DrGopal Fisher NEUT # 4.1 103/ul Normal 1.4-6.5 [facility] Comment on above: Performed By: #### C BC ####[facility] [address] [place], [place] [address]DrGopal Fisher Neutrophils/100 WBC (Bld) 54.7 % Normal 43.0-75.0 [facility] Comment on above: Performed By: #### C BC ####[facility] [address] [place], [place] [address]DrGopal Fisher Platelet mean volume (Bld) [Entitic vol] 9.6 fL Normal 9.5-13.5 [facility] Comment on above: Performed By: #### C BC ####[facility] [address] [place], [place] [address]DrGopal Fisher PLT 235 103/ul Normal 150-450 [facility] Comment on above: Performed By: #### C BC ####[facility] [address] [place], [place] [address]DrGopal Fisher RBC 4.30 106/ul Normal 4.20-5.40 [facility] Comment on above: Performed By: #### C BC ####[facility] [address] [address]Dr. Keturah Fisher WBC 7.6 103/ul Normal 4.0-11.0 [facility] Comment on above: Performed By: #### C BC ####[facility] [address] [address]Dr. Keturah Fisher ER URINE PROFILEon 2 Bilirubin Ql (U) Negative Normal NEGATIVE [facility] Comment on above: Performed By: #### L IPA, CMP, CRP, NAT #### [facility] [address] [address] [address] Keturah Fisher Clarity (U) CLEAR Normal CLEAR [facility] Comment on above: Performed By: #### L IPA, CMP, CRP, NAT #### [facility] [address] [address] [address] Keturah Fisher Color (U) YELLOW Normal YELLOW [facility] Comment on above: Performed By: #### L IPA, CMP, CRP, NAT #### [facility] [address] [address] [address] Keturah BAH A micrscopic examination will be performed if indicated. Normal [facility] Comment on above: Performed By: #### L IPA, CMP, CRP, NAT #### [facility] [address] [address] [address] Keturah Fisher Glucose Ql (U) Negative Normal NEGATIVE [facility] Comment on above: Performed By: #### L IPA, CMP, CRP, NAT #### [facility] [address] [address] [address] Keturah Fisher Hemoglobin Ql (U) Negative Normal NEGATIVE [facility] Comment on above: Performed By: #### L IPA, CMP, CRP, NAT #### [facility] [address] [address] [address] Keturah Fisher Ketones Ql (U) Negative Normal NEGATIVE [facility] Comment on above: Performed By: #### L IPA, CMP, CRP, NAT #### [facility] [address] [address] [address] Keturah Fisher LEUKOCYTES Negative Normal NEGATIVE [facility] Comment on above: Performed By: #### L IPA, CMP, CRP, NAT #### [facility] [address] [place] [address] Dr. Keturah Fisher Nitrite Ql (U) Negative Normal NEGATIVE [facility] Comment on above: Performed By: #### L IPA, CMP, CRP, NAT #### [facility] [address] [address] [address] Keturah Fisher pH (U) 5.5 [pH] Normal 5-9 [facility] Comment on above: Performed By: #### L IPA, CMP, CRP, NAT #### [facility] [address] [place] [address] Dr. Keturah Fisher SPEC GRAVITY >=1.030 Abnormal 1.005-<=1.0 25 [facility] Comment on above: Performed By: #### L IPA, CMP, CRP, NAT #### [facility] [address] [place] [address] Dr. Keturah Fisher UA PROTEIN Negative Normal NEGATIVE/ TRACE [facility] Comment on above: Performed By: #### L IPA, CMP, CRP, NAT #### [facility] [address] [place] [address] Dr. Keturah Fisher UR MICRO IND NOT INDICATED Normal [facility] Comment on above: Performed By: #### L IPA, CMP, CRP, NAT #### [facility] [address] [place] [address] Dr. Keturah Fisher Urobilinogen Qn (U) 0.2 {Marizol'U}/dL Normal 0.2 - 1. 0 [facility] Comment on above: Performed By: #### L IPA, CMP, CRP, NAT #### [facility] [address] [place] [address] Dr. Keturah Fisher LIPASEon 01-15-2022 Lipase [Catalytic activity/Vol] 572.0 U/L Critically high 73.0-393.0 [facility] Comment on above: Performed By: #### C BC #### [facility] [address] [place] [address] Dr. Keturah Fisher URon 01-15-2022 , QUAL Negative Normal NEGATIVE [facility] Comment on above: Performed By: #### L IPA, CMP, CRP, NAT #### [facility] [address] [place] [address] Dr. Keturah Fisher PROF 14(COMP METB)on 022 Albumin [Mass/Vol] 3.8 g/dL Normal 3.4-5.0 [facility] Comment on above: Performed By: #### C BC #### [facility] [address] [place] [address] Dr. Keturah Fisher Albumin/Globulin [Mass ratio] 1.1 {ratio} Normal [facility] Comment on above: Performed By: #### C BC #### [facility] [address] [place] [address] Dr. Keturah Fisher ALP [Catalytic activity/Vol] 151 U/L Critically high 46-116 [facility] Comment on above: Performed By: #### C BC #### [facility] [address] [place] [address] Dr. Keturah Fisher ALT [Catalytic activity/Vol] 14 U/L Normal 14-59 [facility] Comment on above: Performed By: #### C BC #### [facility] [address] [place] [address] Dr. Keturah Fisher Anion gap [Moles/Vol] 5.5 mmol/L Normal [facility] Comment on above: Performed By: #### C BC #### [facility] [address] [place] [address] Dr. Keturah Fisher AST [Catalytic activity/Vol] 16 U/L Normal 15-37 [facility] Comment on above: Performed By: #### C BC #### [facility] [address] [place] [address] Dr. Keturah Fisher Bilirubin [Mass/Vol] 0.1 mg/dL Critically low 0.2-1.0 [facility] Comment on above: Performed By: #### C BC #### [facility] [address] [address] [address] Keturah Fisher Calcium [Mass/Vol] 9.5 mg/dL Normal 8.5-10.1 [facility] Comment on above: Performed By: #### C BC #### [facility] [address] [address] [address] Keturah Fisher Chloride [Moles/Vol] 105 mmol/L Normal 98-107 [facility] Comment on above: Performed By: #### C BC #### [facility] [address] [address] [address] Keturah Fisher CO2 [Moles/Vol] 30.0 mmol/L Normal 21.0-32.0 [facility] Comment on above: Performed By: #### C BC #### [facility] [address] [place] [address] Dr. Keturah Fisher Creatinine [Mass/Vol] 0.90 mg/dL Normal 0.55-1.02 [facility] Comment on above: Performed By: #### C BC #### [facility] [address] [place] [address] Dr. Keturah Fisher EGFR-AF BANGLADESHI >60 Normal >=60 [facility] Comment on above: Performed By: #### C BC #### [facility] [address] [place] [address] Dr. Keturah Fisher EGFR-NON AF BANGLADESHI >60 Normal >=60 [facility] Comment on above: Performed By: #### C BC #### [facility] [address] [place] [address] Dr. Keturah Fisher Globulin (S) [Mass/Vol] 3.4 g/dL Normal [facility] Comment on above: Performed By: #### C BC #### [facility] [address] [place] [address] Dr. Keturah Fisher Glucose [Mass/Vol] 82 mg/dL Normal 74-106 [facility] Comment on above: Performed By: #### C BC #### [facility] [address] [place] [address] Dr. Keturah Fisher Potassium [Moles/Vol] 3.5 mmol/L Normal 3.5-5.1 [facility] Comment on above: Performed By: #### C BC #### [facility] [address] [address] [address] Keturah Fisher Protein [Mass/Vol] 7.2 g/dL Normal 6.4-8.2 [facility] Comment on above: Performed By: #### C BC #### [facility] [address] [address] [address] Keturah Fisher Sodium [Moles/Vol] 137 mmol/L Normal 136-145 [facility] Comment on above: Performed By: #### C BC #### [facility] [address] [address] [address] Keturah Fisher Urea nitrogen [Mass/Vol] 12.0 mg/dL Normal 7.0-18.0 [facility] Comment on above: Performed By: #### C BC #### [facility] [address] [address] [address] Keturah Fisher Urea nitrogen/Creatinine [Mass ratio] 13.3 mg/mg Normal [facility] Comment on above: Performed By: #### C BC #### [facility] [address] [address] [address] Keturah Fisher Basic Metabolic Panel 12-07 Anion gap [Moles/Vol] 16.0 mmol/L High 6.0-15.[address] [facility] Comment on above: Performed By: #### U A #### [facility] [address] [place] [address] [place] Calcium [Mass/Vol] 10.2 mg/dL Normal 8.2-10.2 [facility] Comment on above: Performed By: #### U A #### [facility] [address] [place] [address] [place] Chloride [Moles/Vol] 102 mmol/L Normal 95-114 [facility] Comment on above: Performed By: #### U A #### [facility] [address] [place] [address] [place] CO2 [Moles/Vol] 23.6 mmol/L Normal 22.0-30.0 [facility] Comment on above: Performed By: #### U A #### [facility] [address] Creatinine [Mass/Vol] 0.90 mg/dL Normal 0.44-1.03 [facility] Comment on above: Performed By: #### U A #### [facility] [address] [place] [address] [place] Creatinine Clr Calc Pharmacy 57.83 [facility] Comment on above: Performed By: #### U A #### [address] Estimated GFR ( [place] > 60 [facility] Comment on above: Result Comment: GFR estimated reference range: According to KDOQI guidelines, <60 ml/min/1.73m2 is sufficient to diagnose a patient with chronic kidney disease. Performed By: #### U A #### [address] Estimated GFR (Non- Am > 60 [facility] Comment on above: Performed By: #### U A #### [address] Glucose [Mass/Vol] 88 mg/dL Normal 70-100 [facility] Comment on above: Result Comment: [place] om Glucose Reference Range is dependent on time and content of last meal. Glucose of more than 200 mg/dL in a nonstressed, ambulatory subject supports the diagnosis of Diabetes Mellitus. ADA recommended reference range Performed By: #### U A #### [place] [address] [place] Potassium [Moles/Vol] 3.6 mmol/L Normal 3.5-5.1 [facility] Comment on above: Performed By: #### U A #### [address] Sodium [Moles/Vol] 138 mmol/L Normal 136-146 [facility] Comment on above: Performed By: #### U A #### [address] Urea nitrogen [Mass/Vol] 7 mg/dL Low 11-29 [facility] Comment on above: Performed By: #### U A #### [address] Complete Blood Count Auto Di ffon 12-19-2021 Basophils (Bld) [#/Vol] 0.1 10*3/uL Normal 0.0-0.2 [facility] Comment on above: Result Comment: PERF ORMED BY: [place] [address] PATHOLOGIST DIPLOMATIC COURIER PAULA RODRIGUES M.D. Performed By: #### U A #### [address] Basophils/100 WBC (Bld) 0.8 % Normal . [facility] Comment on above: Performed By: #### U A #### [address] Eosinophils (Bld) [#/Vol] 0.1 10*3/uL Normal 0.0-0.45 [facility] Comment on above: Performed By: #### U A #### [address] Eosinophils/100 WBC (Bld) 0.9 % Normal . [facility] Comment on above: Performed By: #### U A #### [address] Erythrocyte distribution width (RBC) [Ratio] 13.7 % Normal 11.9-15.3 [facility] Comment on above: Performed By: #### U A #### [address] Hematocrit (Bld) [Volume fraction] 44.3 % Normal 34.0-46.4 [facility] Comment on above: Performed By: #### U A #### [address] Hemoglobin (Bld) [Mass/Vol] 14.6 g/dL Normal 11.8-15.4 [facility] Comment on above: Performed By: #### U A #### [facility] [address] Lymphocytes (Bld) [#/Vol] 3.0 10*3/uL Normal 1.00-4.8 [facility] Comment on above: Performed By: #### U A #### [address] Lymphocytes/100 WBC (Bld) 24.0 % Normal . [facility] Comment on above: Performed By: #### U A #### [address] MCH (RBC) [Entitic mass] 32.2 pg Normal 24.7-34.3 [facility] Comment on above: Performed By: #### U A #### [address] MCV (RBC) [Entitic vol] 97.6 fL Normal 80-100 [facility] Comment on above: Performed By: #### U A #### [address] Mean Corpuscular HGB Conc 33.0 g/dL Normal 32.0-35.0 [facility] Comment on above: Performed By: #### U A #### [address] Monocytes (Bld) [#/Vol] 1.0 10*3/uL High 0.0-0.8 [facility] Comment on above: Performed By: #### U A #### [address] Monocytes/100 WBC (Bld) 7.6 % Normal . [facility] Comment on above: Performed By: #### U A #### [address] Neutrophils (Bld) [#/Vol] 8.5 10*3/uL High 1.8-7.7 [facility] Comment on above: Performed By: #### U A #### [facility] [address] Neutrophils/100 WBC (Bld) 66.7 % Normal . [facility] Comment on above: Performed By: #### U A #### [facility] [address] Nucleated RBC/100 WBC (Bld) [Ratio] 0.0 % Normal 0-0.5 [facility] Comment on above: Performed By: #### U A #### [address] Platelet mean volume (Bld) [Entitic vol] 8.2 fL Normal 6.3-10.7 [facility] Comment on above: Performed By: #### U A #### [address] Platelets (Bld) [#/Vol] 308 10*3/uL Normal 150-450 [facility] Comment on above: Performed By: #### U A #### [address] RBC (Bld) [#/Vol] 4.54 10*6/uL Normal 3.60-5.00 [facility] Comment on above: Performed By: #### U A #### [address] WBC (Bld) [#/Vol] 12.7 10*3/uL High 4.5-11.0 [facility] Comment on above: Performed By: #### U A #### [address] Hepatic Panelon 12-19-2021 Albumin [Mass/Vol] 4.0 g/dL Normal 3.2-5.5 [facility] Comment on above: Performed By: #### U A #### [address] Albumin/Globulin [Mass ratio] 1.4 {ratio} Normal [facility] Comment on above: Performed By: #### U A #### [facility] [address] [place] [address] ALP [Catalytic activity/Vol] 136 U/L High 32-92 [facility] Comment on above: Performed By: #### U A #### [address] ALT [Catalytic activity/Vol] 14 U/L Normal 10-60 [facility] Comment on above: Performed By: #### U A #### [address] AST [Catalytic activity/Vol] 25 U/L Normal 10-42 [facility] Comment on above: Performed By: #### U A #### [address] Bilirubin [Mass/Vol] 0.5 mg/dL Normal 0.3-1.2 [facility] Comment on above: Performed By: #### U A #### [address] Bilirubin,Indirect 0.4 mg/dL Normal [facility] Comment on above: Performed By: #### U A #### [address] Bilirubin.indirect [Mass/Vol] 0.1 mg/dL Normal 0.0-0.4 [facility] Comment on above: Performed By: #### U A #### [address] Globulin (S) [Mass/Vol] 2.8 g/dL Normal [facility] Comment on above: Performed By: #### U A #### [address] Protein [Mass/Vol] 6.8 g/dL Normal 6.1-7.9 [facility] Comment on above: Performed By: #### U A #### [address] Lipaseon 12-19-2021 Lipase [Catalytic activity/Vol] 99.0 U/L High 22-51 [facility] Comment on above: Result Comment: PERF ORMED BY: [place] [address] PATHOLOGIST DIPLOMATIC COURIER PAULA RODRIGUES M.D. Performed By: #### U A #### [address] Urinalysison 12-19-2021 Appearance (U) Clear Normal Clear [facility] Comment on above: Order Comment: Name Collection Type:: Clean-Voided Midstream Performed By: #### U A #### [place] [address] [place] Bilirubin,Urine Negative Normal Negative [facility] Comment on above: Order Comment: Name Collection Type:: Clean-Voided Midstream Performed By: #### U A #### [place] [address] [place] Color (U) Yellow Normal Yellow [facility] Comment on above: Order Comment: Name Collection Type:: Clean-Voided Midstream Performed By: #### U A #### [place] [address] [place] Glucose Ql (U) Normal Normal Normal [facility] Comment on above: Order Comment: Name Collection Type:: Clean-Voided Midstream Performed By: #### U A #### [address] Ketones Ql (U) Trace High Negative [facility] Comment on above: Order Comment: Name Collection Type:: Clean-Voided Midstream Performed By: #### U A #### [place] [address] [place] Leukocyte esterase Test strip Ql (U) Negative Normal Negative [facility] Comment on above: Order Comment: Name Collection Type:: Clean-Voided Midstream Performed By: #### U A #### [place] [address] [place] Nitrite,Urine Negative Normal Negative [facility] Comment on above: Order Comment: Name Collection Type:: Clean-Voided Midstream Performed By: #### U A #### [address] [place] [address] [place] Occult Blood,Urine Negative Normal Negative [facility] Comment on above: Order Comment: Name Collection Type:: Clean-Voided Midstream Result Comment: PERF ORMED BY: [place] [address] PATHOLOGIST DIPLOMATIC COURIER PAULA RODRIGUES M.D. Performed By: #### U A #### [address] pH (U) 5.0 [pH] Normal 5.0-9.0 [facility] Comment on above: Order Comment: Name Collection Type:: Clean-Voided Midstream Performed By: #### U A #### [address] Protein,Urine Negative Normal Negative [facility] Comment on above: Order Comment: Name Collection Type:: Clean-Voided Midstream Performed By: #### U A #### [address] Specificy [place],Urine 1.024 Normal 1.001-1.030 [facility] Comment on above: Order Comment: Name Collection Type:: Clean-Voided Midstream Performed By: #### U A #### [address] Urobilinogen,Urine Normal Normal Normal [facility] Comment on above: Order Comment: Name Collection Type:: Clean-Voided Midstream Performed By: #### U A #### [address] AMYLASEon 12-13-2021 Amylase [Catalytic activity/Vol] 268 U/L Critically high 25-115 [facility] Comment on above: Performed By: #### L IPA, CMP, CRP, NAT #### [facility] [address] [address] [address] Keturah Fisher CBC AUTO DIFFon 12-13-2021 BASO # 0.1 103/ul Normal 0.0-0.1 [facility] Comment on above: Performed By: #### L IPA, CMP, CRP, NAT #### [facility] [address] [place] [address] Dr. Keturah Fisher Basophils/100 WBC (Bld) 0.6 % Normal 0.2-2.0 [facility] Comment on above: Performed By: #### L IPA, CMP, CRP, NAT #### [facility] [address] [place] [address] Dr. Keturah Fisher EO # 0.1 103/ul Normal 0.0-0.7 [facility] Comment on above: Performed By: #### L IPA, CMP, CRP, NAT #### [facility] [address] [place] [address] Dr. Keturah Fisher Eosinophils/100 WBC (Bld) 1.2 % Normal 0.9-7.0 [facility] Comment on above: Performed By: #### L IPA, CMP, CRP, NAT #### [facility] [address] [place] [address] Dr. Keturah Fisher Erythrocyte distribution width (RBC) [Ratio] 13.2 % Normal 11.0-15.0 [facility] Comment on above: Performed By: #### L IPA, CMP, CRP, NAT #### [facility] [address] [place] [address] Dr. Keturah Fisher Hematocrit (Bld) [Volume fraction] 44.7 % Normal 36.0-48.0 [facility] Comment on above: Performed By: #### L IPA, CMP, CRP, NAT #### [facility] [address] [place] [address] Dr. Keturah Fisher Hemoglobin (Bld) [Mass/Vol] 14.7 g/dL Normal 12.0-16.0 [facility] Comment on above: Performed By: #### L IPA, CMP, CRP, NAT #### [facility] [address] [place] [address] Dr. Keturah Fisher IG # 0.03 10e3/ul Normal 0.00-0.03 [facility] Comment on above: Performed By: #### L IPA, CMP, CRP, NAT #### [facility] [address] [place] [address] Dr. Keturah Fisher IG % 0.3 % Normal 0.0-0.5 [facility] Comment on above: Performed By: #### L IPA, CMP, CRP, NAT #### [facility] [address] [place] [address] Dr. Keturah Fisher LYMPH # 3.6 103/ul Normal 1.2-3.8 [facility] Comment on above: Performed By: #### L IPA, CMP, CRP, NAT #### [facility] [address] [place] [address] Dr. Keturah Fisher Lymphocytes/100 WBC (Bld) 32.7 % Normal 20.5-60.0 [facility] Comment on above: Performed By: #### L IPA, CMP, CRP, NAT #### [facility] [address] [place] [address] Dr. Keturah Fisher MANUAL DIFF REQ NO Normal [facility] Comment on above: Performed By: #### L IPA, CMP, CRP, NAT #### [facility] [address] [place] [address] Dr. Keturah Fisher MCH (RBC) [Entitic mass] 32.2 pg Normal 26.7-34.0 [facility] Comment on above: Performed By: #### L IPA, CMP, CRP, NAT #### [facility] [address] [place] [address] Dr. Keturah Fisher MCHC (RBC) [Mass/Vol] 32.9 g/dL Normal 29.9-35.2 [facility] Comment on above: Performed By: #### L IPA, CMP, CRP, NAT #### [facility] [address] [place] [address] Dr. Keturah Fisher MCV (RBC) [Entitic vol] 98.0 fL Normal 81.0-99.0 [facility] Comment on above: Performed By: #### L IPA, CMP, CRP, NAT #### [facility] [address] [place] [address] Dr. Keturah Fisher MONO # 1.1 103/ul Critically high 0.3-0.8 [facility] Comment on above: Performed By: #### L IPA, CMP, CRP, NAT #### [facility] [address] [address] [address] Keturah Fisher Monocytes/100 WBC (Bld) 9.7 % Normal 1.7-12.0 [facility] Comment on above: Performed By: #### L IPA, CMP, CRP, NAT #### [facility] [address] [place] [address] Dr. Keturah Fisher NEUT # 6.1 103/ul Normal 1.4-6.5 [facility] Comment on above: Performed By: #### L IPA, CMP, CRP, NAT #### [facility] [address] [place] [address] Dr. Keturah Fisher Neutrophils/100 WBC (Bld) 55.5 % Normal 43.0-75.0 [facility] Comment on above: Performed By: #### L IPA, CMP, CRP, NAT #### [facility] [address] [place] [address] Dr. Keturah Fisher Platelet mean volume (Bld) [Entitic vol] 9.7 fL Normal 9.5-13.5 [facility] Comment on above: Performed By: #### L IPA, CMP, CRP, NAT #### [facility] [address] [place] [address] Dr. Keturah Fisher PLT 274 103/ul Normal 150-450 [facility] Comment on above: Performed By: #### L IPA, CMP, CRP, NAT #### [facility] [address] [place] [address] Dr. Keturah Fisher RBC 4.56 106/ul Normal 4.20-5.40 [facility] Comment on above: Performed By: #### L IPA, CMP, CRP, NAT #### [facility] [address] [place] [address] Dr. Keturah Fisher WBC 10.9 103/ul Normal 4.0-11.0 [facility] Comment on above: Performed By: #### L IPA, CMP, CRP, NAT #### [facility] [address] [place] [address] Dr. Keturah Fisher CRPon 12-13-2021 CRP [Mass/Vol] mg/L Normal <=1.0 [facility] Comment on above: Performed By: #### L IPA, CMP, CRP, NAT #### [facility] [address] [address] [address] ABD/PELV W CONon [...] by: AGUSTIN HIGHTOWER Date: 2021-12-13 20:50 Normal [facility] LIPASEon 12-13-2021 Lipase [Catalytic activity/Vol] 1496.0 U/L Critically high 73.0-393.0 [facility] Comment on above: Performed By: #### L IPA, CMP, CRP, NAT #### [facility] [address] [address] [address] Keturah Fisher PROF 14(COMP METB)on 022 Albumin [Mass/Vol] 4.0 g/dL Normal 3.4-5.0 [facility] Comment on above: Performed By: #### L IPA, CMP, CRP, NAT #### [facility] [address] [address] [address] Keturah Fisher Albumin/Globulin [Mass ratio] 1.0 {ratio} Normal [facility] Comment on above: Performed By: #### L IPA, CMP, CRP, NAT #### [facility] [address] [address] [address] Keturah Fisher ALP [Catalytic activity/Vol] 166 U/L Critically high 46-116 [facility] Comment on above: Performed By: #### L IPA, CMP, CRP, NAT #### [facility] [address] [address] [address] Keturah Fisher ALT [Catalytic activity/Vol] 19 U/L Normal 14-59 [facility] Comment on above: Performed By: #### L IPA, CMP, CRP, NAT #### [facility] [address] [address] [address] Keturah Fisher Anion gap [Moles/Vol] 9.5 mmol/L Normal [facility] Comment on above: Performed By: #### L IPA, CMP, CRP, ANT #### [facility] [address] [address] [address] Keturah Fisher AST [Catalytic activity/Vol] 16 U/L Normal 15-37 [facility] Comment on above: Performed By: #### L IPA, CMP, CRP, NAT #### [facility] [address] [address] [address] Keturah iFsher Bilirubin [Mass/Vol] 0.1 mg/dL Critically low 0.2-1.0 [facility] Comment on above: Performed By: #### L IPA, CMP, CRP, NAT #### [facility] [address] [address] [address] Keturah Fisher Calcium [Mass/Vol] 9.6 mg/dL Normal 8.5-10.1 [facility] Comment on above: Performed By: #### L IPA, CMP, CRP, NAT #### [facility] [address] [place] [address] Dr. Keturah Fisher Chloride [Moles/Vol] 104 mmol/L Normal 98-107 [facility] Comment on above: Performed By: #### L IPA, CMP, CRP, NAT #### [facility] [address] [place] [address] Dr. Keturah Fisher CO2 [Moles/Vol] 29.7 mmol/L Normal 21.0-32.0 [facility] Comment on above: Performed By: #### L IPA, CMP, CRP, NAT #### [facility] [address] [place] [address] Dr. Keturah Fisher Creatinine [Mass/Vol] 0.85 mg/dL Normal 0.55-1.02 [facility] Comment on above: Performed By: #### L IPA, CMP, CRP, NAT #### [facility] [address] [place] [address] Dr. Keturah Fisher EGFR-AF BANGLADESHI >60 Normal >=60 [facility] Comment on above: Performed By: #### L IPA, CMP, CRP, NTA #### [facility] [address] [place] [address] Dr. Keturah Fisher EGFR-NON AF BANGLADESHI >60 Normal >=60 [facility] Comment on above: Performed By: #### L IPA, CMP, CRP, NAT #### [facility] [address] [place] [address] Dr. Keturah Fisher Globulin (S) [Mass/Vol] 3.9 g/dL Normal [facility] Comment on above: Performed By: #### L IPA, CMP, CRP, NAT #### [facility] [address] [place] [address] Dr. Keturah Fisher Glucose [Mass/Vol] 70 mg/dL Critically low 74-106 [facility] Comment on above: Performed By: #### L IPA, CMP, CRP, NAT #### [facility] [address] [address] [address] Keturah Fisher Potassium [Moles/Vol] 3.2 mmol/L Critically low 3.5-5.1 [facility] Comment on above: Performed By: #### L IPA, CMP, CRP, NAT #### [facility] [address] [place] [address] Dr. Keturah Fisher Protein [Mass/Vol] 7.9 g/dL Normal 6.4-8.2 [facility] Comment on above: Performed By: #### L IPA, CMP, CRP, NAT #### [facility] [address] [place] [address] Dr. Keturah Fisher Sodium [Moles/Vol] 140 mmol/L Normal 136-145 [facility] Comment on above: Performed By: #### L IPA, CMP, CRP, NAT #### [facility] [address] [place] [address] Dr. Keturah Fisher Urea nitrogen [Mass/Vol] 8.0 mg/dL Normal 7.0-18.0 [facility] Comment on above: Performed By: #### L IPA, CMP, CRP, NAT #### [facility] [address] [place] [address] Dr. Keturah Fisher Urea nitrogen/Creatinine [Mass ratio] 9.4 mg/mg Normal [facility] Comment on above: Performed By: #### L IPA, CMP, CRP, NAT #### [facility] [address] [place] [address] Dr. Keturah Fisher AMYLASEon 12-05-2021 Amylase [Catalytic activity/Vol] 223 U/L Critically high 25-115 [facility] Comment on above: Performed By: #### L IPA, CMP, CRP, NAT #### [facility] [address] [place] [address] Dr. Keturah Fisher CBC AUTO DIFFon 12-05-2021 BASO # 0.1 103/ul Normal 0.0-0.1 [facility] Comment on above: Performed By: #### C BC #### [facility] [address] [place] [address] Dr. Keturah Fisher Basophils/100 WBC (Bld) 0.7 % Normal 0.2-2.0 [facility] Comment on above: Performed By: #### C BC #### [facility] [address] [place] [address] Dr. Keturah Fisher EO # 0.2 103/ul Normal 0.0-0.7 [facility] Comment on above: Performed By: #### C BC #### [facility] [address] [place] [address] Dr. Keturah Fisher Eosinophils/100 WBC (Bld) 1.7 % Normal 0.9-7.0 [facility] Comment on above: Performed By: #### C BC #### [facility] [address] [place] [address] Dr. Keturah Fisher Erythrocyte distribution width (RBC) [Ratio] 13.0 % Normal 11.0-15.0 [facility] Comment on above: Performed By: #### C BC #### [facility] [address] [place] [address] Dr. Keturah Fisher Hematocrit (Bld) [Volume fraction] 44.9 % Normal 36.0-48.0 [facility] Comment on above: Performed By: #### C BC #### [facility] [address] [place] [address] Dr. Keturah Fisher Hemoglobin (Bld) [Mass/Vol] 15.1 g/dL Normal 12.0-16.0 [facility] Comment on above: Performed By: #### C BC #### [facility] [address] [place] [address] Dr. Keturah Fisher IG # 0.02 10e3/ul Normal 0.00-0.03 [facility] Comment on above: Performed By: #### C BC #### [facility] [address] [place] [address] Dr. Keturah Fisher IG % 0.2 % Normal 0.0-0.5 [facility] Comment on above: Performed By: #### C BC #### [facility] [address] [place] [address] Dr. Keturah Fisher LYMPH # 2.8 103/ul Normal 1.2-3.8 [facility] Comment on above: Performed By: #### C BC #### [facility] [address] [place] [address] Dr. Keturah Fisher Lymphocytes/100 WBC (Bld) 29.8 % Normal 20.5-60.0 [facility] Comment on above: Performed By: #### C BC #### [facility] [address] [place] [address] Dr. Keturah Fisher MANUAL DIFF REQ NO Normal [facility] Comment on above: Performed By: #### C BC #### [facility] [address] [place] [address] Dr. Keturah Fisher MCH (RBC) [Entitic mass] 32.4 pg Normal 26.7-34.0 [facility] Comment on above: Performed By: #### C BC #### [facility] [address] [place] [address] Dr. Keturah Fisher MCHC (RBC) [Mass/Vol] 33.6 g/dL Normal 29.9-35.2 [facility] Comment on above: Performed By: #### C BC #### [facility] [address] [place] [address] Dr. Keturah Fisher MCV (RBC) [Entitic vol] 96.4 fL Normal 81.0-99.0 [facility] Comment on above: Performed By: #### C BC #### [facility] [address] [place] [address] Dr. Keturah Fisher MONO # 0.6 103/ul Normal 0.3-0.8 [facility] Comment on above: Performed By: #### C BC #### [facility] [address] [place] [address] Dr. Keturah Fisher Monocytes/100 WBC (Bld) 6.3 % Normal 1.7-12.0 [facility] Comment on above: Performed By: #### C BC #### [facility] [address] [place] [address] Dr. Keturah Fisher NEUT # 5.7 103/ul Normal 1.4-6.5 [facility] Comment on above: Performed By: #### C BC #### [facility] [address] [place] [address] Dr. Keturah Fisher Neutrophils/100 WBC (Bld) 61.3 % Normal 43.0-75.0 [facility] Comment on above: Performed By: #### C BC #### [facility] [address] [place] [address] Dr. Keturah Fisher Platelet mean volume (Bld) [Entitic vol] 10.7 fL Normal 9.5-13.5 [facility] Comment on above: Performed By: #### C BC #### [facility] [address] [place] [address] Dr. Keturah Fisher PLT 217 103/ul Normal 150-450 [facility] Comment on above: Performed By: #### C BC #### [facility] [address] [place] [address] Dr. Keturah Fisher RBC 4.66 106/ul Normal 4.20-5.40 [facility] Comment on above: Performed By: #### C BC #### [facility] [address] [place] [address] Dr. Keturah Fisher WBC 9.2 103/ul Normal 4.0-11.0 [facility] Comment on above: Performed By: #### C BC #### [facility] [address] [place] [address] Dr. Keturah Fisher LIPASEon 12-05-2021 Lipase [Catalytic activity/Vol] 725.0 U/L Critically high 73.0-393.0 [facility] Comment on above: Performed By: #### L IPA, CMP, CRP, NAT #### [facility] [address] [place] [address] Dr. Keturah Fisher PROF 14(COMP METB)on 022 Albumin [Mass/Vol] 4.2 g/dL Normal 3.4-5.0 [facility] Comment on above: Performed By: #### L IPA, CMP, CRP, NAT #### [facility] [address] [place] [address] Dr. Keturah Fisher Albumin/Globulin [Mass ratio] 1.2 {ratio} Normal [facility] Comment on above: Performed By: #### L IPA, CMP, CRP, NAT #### [facility] [address] [place] [address] Dr. Keturah Fisher ALP [Catalytic activity/Vol] 158 U/L Critically high 46-116 [facility] Comment on above: Performed By: #### L IPA, CMP, CRP, NAT #### [facility] [address] [place] [address] Dr. Keturah Fisher ALT [Catalytic activity/Vol] 20 U/L Normal 14-59 [facility] Comment on above: Performed By: #### L IPA, CMP, CRP, NAT #### [facility] [address] [place] [address] Dr. Keturah Fisher Anion gap [Moles/Vol] 14.0 mmol/L Normal [facility] Comment on above: Performed By: #### L IPA, CMP, CRP, NAT #### [facility] [address] [place] [address] Dr. Keturah Fisher AST [Catalytic activity/Vol] 27 U/L Normal 15-37 [facility] Comment on above: Performed By: #### L IPA, CMP, CRP, NAT #### [facility] [address] [place] [address] Dr. Keturah Fisher Bilirubin [Mass/Vol] 0.3 mg/dL Normal 0.2-1.0 [facility] Comment on above: Performed By: #### L IPA, CMP, CRP, NAT #### [facility] [address] [place] [address] Dr. Keturah Fisher Calcium [Mass/Vol] 10.1 mg/dL Normal 8.5-10.1 [facility] Comment on above: Performed By: #### L IPA, CMP, CRP, NAT #### [facility] [address] [address] [address] Keturah Fisher Chloride [Moles/Vol] 105 mmol/L Normal 98-107 [facility] Comment on above: Performed By: #### L IPA, CMP, CRP, NAT #### [facility] [address] [address] [address] Keturah Fisher CO2 [Moles/Vol] 24.9 mmol/L Normal 21.0-32.0 [facility] Comment on above: Performed By: #### L IPA, CMP, CRP, NAT #### [facility] [address] [address] [address] Keturah Fisher Creatinine [Mass/Vol] 0.77 mg/dL Normal 0.55-1.02 [facility] Comment on above: Performed By: #### L IPA, CMP, CRP, NAT #### [facility] [address] [place] [address] Dr. Keturah Fisher EGFR-AF BANGLADESHI >60 Normal >=60 [facility] Comment on above: Performed By: #### L IPA, CMP, CRP, NAT #### [facility] [address] [place] [address] Dr. Keturah Fisher EGFR-NON AF BANGLADESHI >60 Normal >=60 [facility] Comment on above: Performed By: #### L IPA, CMP, CRP, NAT #### [facility] [address] [place] [address] Dr. Keturah Fisher Globulin (S) [Mass/Vol] 3.5 g/dL Normal [facility] Comment on above: Performed By: #### L IPA, CMP, CRP, NAT #### [facility] [address] [address] [address] Keturah Fisher Glucose [Mass/Vol] 91 mg/dL Normal 74-106 [facility] Comment on above: Performed By: #### L IPA, CMP, CRP, NAT #### [facility] [address] [address] [address] Keturah Fisher Potassium [Moles/Vol] 3.9 mmol/L Normal 3.5-5.1 [facility] Comment on above: Performed By: #### L IPA, CMP, CRP, NAT #### [facility] [address] [place] [address] Dr. Keturah Fisher Protein [Mass/Vol] 7.7 g/dL Normal 6.4-8.2 [facility] Comment on above: Performed By: #### L IPA, CMP, CRP, NAT #### [facility] [address] [place] [address] Dr. Keturah Fisher Sodium [Moles/Vol] 140 mmol/L Normal 136-145 [facility] Comment on above: Performed By: #### L IPA, CMP, CRP, NAT #### [facility] [address] [place] [address] Dr. Keturah Fisher Urea nitrogen [Mass/Vol] 8.0 mg/dL Normal 7.0-18.0 [facility] Comment on above: Performed By: #### L IPA, CMP, CRP, NAT #### [facility] [address] [place] [address] Dr. Keturah Fisher Urea nitrogen/Creatinine [Mass ratio] 10.4 mg/mg Normal [facility] Comment on above: Performed By: #### L IPA, CMP, CRP, NAT #### [facility] [address] [place] [address] Dr. Keturah Fisher AMYLASEon 10-11-2021 Amylase [Catalytic activity/Vol] 134 U/L Critically high 25-115 [facility] Comment on above: Performed By: #### C BC #### [facility] [address] [place] [address] Dr. Keturah Fisher CBC AUTO DIFFon 10-11-2021 BASO # 0.1 103/ul Normal 0.0-0.1 [facility] Comment on above: Performed By: #### L IPA, CMP, CRP, NAT #### [facility] [address] [place] [address] Dr. Keturah Fisher Basophils/100 WBC (Bld) 1.0 % Normal 0.2-2.0 [facility] Comment on above: Performed By: #### L IPA, CMP, CRP, NAT #### [facility] [address] [place] [address] Dr. Keturah Fisher EO # 0.2 103/ul Normal 0.0-0.7 [facility] Comment on above: Performed By: #### L IPA, CMP, CRP, NAT #### [facility] [address] [place] [address] Dr. Keturah Fisher Eosinophils/100 WBC (Bld) 2.0 % Normal 0.9-7.0 [facility] Comment on above: Performed By: #### L IPA, CMP, CRP, NAT #### [facility] [address] [place] [address] Dr. Keturah Fisher Erythrocyte distribution width (RBC) [Ratio] 13.2 % Normal 11.0-15.0 [facility] Comment on above: Performed By: #### L IPA, CMP, CRP, NAT #### [facility] [address] [place] [address] Dr. Keturah Fisher Hematocrit (Bld) [Volume fraction] 44.7 % Normal 36.0-48.0 [facility] Comment on above: Performed By: #### L IPA, CMP, CRP, NAT #### [facility] [address] [place] [address] Dr. Keturah Fisher Hemoglobin (Bld) [Mass/Vol] 15.0 g/dL Normal 12.0-16.0 [facility] Comment on above: Performed By: #### L IPA, CMP, CRP, NAT #### [facility] [address] [place] [address] Dr. Keturah Fisher IG # 0.02 10e3/ul Normal 0.00-0.03 [facility] Comment on above: Performed By: #### L IPA, CMP, CRP, NAT #### [facility] [address] [place] [address] Dr. Keturah Fisher IG % 0.2 % Normal 0.0-0.5 [facility] Comment on above: Performed By: #### L IPA, CMP, CRP, NAT #### [facility] [address] [place] [address] Dr. Keturah Fisher LYMPH # 4.1 103/ul Critically high 1.2-3.8 [facility] Comment on above: Performed By: #### L IPA, CMP, CRP, NAT #### [facility] [address] [address] [address] Keturah Fisher Lymphocytes/100 WBC (Bld) 38.9 % Normal 20.5-60.0 [facility] Comment on above: Performed By: #### L IPA, CMP, CRP, NAT #### [facility] [address] [address] [address] Keturah Fisher MANUAL DIFF REQ NO Normal [facility] Comment on above: Performed By: #### L IPA, CMP, CRP, NAT #### [facility] [address] [place] [address] Dr. Keturah Fisher MCH (RBC) [Entitic mass] 32.1 pg Normal 26.7-34.0 [facility] Comment on above: Performed By: #### L IPA, CMP, CRP, NAT #### [facility] [address] [place] [address] Dr. Keturah Fisher MCHC (RBC) [Mass/Vol] 33.6 g/dL Normal 29.9-35.2 [facility] Comment on above: Performed By: #### L IPA, CMP, CRP, NAT #### [facility] [address] [place] [address] Dr. Keturah Fisher MCV (RBC) [Entitic vol] 95.7 fL Normal 81.0-99.0 [facility] Comment on above: Performed By: #### L IPA, CMP, CRP, NAT #### [facility] [address] [place] [address] Dr. Keturah Fisher MONO # 0.9 103/ul Critically high 0.3-0.8 [facility] Comment on above: Performed By: #### L IPA, CMP, CRP, NAT #### [facility] [address] [place] [address] Dr. Keturah Fisher Monocytes/100 WBC (Bld) 8.8 % Normal 1.7-12.0 [facility] Comment on above: Performed By: #### L IPA, CMP, CRP, NAT #### [facility] [address] [place] [address] Dr. Keturah Fisher NEUT # 5.2 103/ul Normal 1.4-6.5 [facility] Comment on above: Performed By: #### L IPA, CMP, CRP, NAT #### [facility] [address] [place] [address] Dr. Keturah Fisher Neutrophils/100 WBC (Bld) 49.1 % Normal 43.0-75.0 [facility] Comment on above: Performed By: #### L IPA, CMP, CRP, NAT #### [facility] [address] [place] [address] Dr. Keturah Fisher Platelet mean volume (Bld) [Entitic vol] 9.8 fL Normal 9.5-13.5 [facility] Comment on above: Performed By: #### L IPA, CMP, CRP, NAT #### [facility] [address] [place] [address] Dr. Keturah Fisher PLT 299 103/ul Normal 150-450 [facility] Comment on above: Performed By: #### L IPA, CMP, CRP, NAT #### [facility] [address] [place] [address] Dr. Keturah Fisher RBC 4.67 106/ul Normal 4.20-5.40 [facility] Comment on above: Performed By: #### L IPA, CMP, CRP, NAT #### [facility] [address] [place] [address] Dr. Keturah Fisher WBC 10.5 103/ul Normal 4.0-11.0 [facility] Comment on above: Performed By: #### L IPA, CMP, CRP, NAT #### [facility] [address] [place] [address] Dr. Keturah Fisher LIPASEon 10-11-2021 Lipase [Catalytic activity/Vol] 240.0 U/L Normal 73.0-393.0 [facility] Comment on above: Performed By: #### C BC #### [facility] [address] [place] [address] Dr. Keturah Fisher PROF 14(COMP METB)on 022 Albumin [Mass/Vol] 4.3 g/dL Normal 3.4-5.0 [facility] Comment on above: Performed By: #### C BC #### [facility] [address] [place] [address] Dr. Keturah Fisher Albumin/Globulin [Mass ratio] 1.3 {ratio} Normal [facility] Comment on above: Performed By: #### C BC #### [facility] [address] [place] [address] Dr. Keturah Fisher ALP [Catalytic activity/Vol] 162 U/L Critically high 46-116 [facility] Comment on above: Performed By: #### C BC #### [facility] [address] [place] [address] Dr. Keturah Fisher ALT [Catalytic activity/Vol] 21 U/L Normal 14-59 [facility] Comment on above: Performed By: #### C BC #### [facility] [address] [place] [address] Dr. Keturah Fisher Anion gap [Moles/Vol] 15.1 mmol/L Normal [facility] Comment on above: Performed By: #### C BC #### [facility] [address] [place] [address] Dr. Keturah Fisher AST [Catalytic activity/Vol] 16 U/L Normal 15-37 [facility] Comment on above: Performed By: #### C BC #### [facility] [address] [place] [address] Dr. Keturah Fisher Bilirubin [Mass/Vol] 0.2 mg/dL Normal 0.2-1.0 [facility] Comment on above: Performed By: #### C BC #### [facility] [address] [place] [address] Dr. Keturah Fisher Calcium [Mass/Vol] 9.6 mg/dL Normal 8.5-10.1 [facility] Comment on above: Performed By: #### C BC #### [facility] [address] [place] [address] Dr. Keturah Fisher Chloride [Moles/Vol] 104 mmol/L Normal 98-107 [facility] Comment on above: Performed By: #### C BC #### [facility] [address] [address] [address] Keturah Fisher CO2 [Moles/Vol] 24.6 mmol/L Normal 21.0-32.0 [facility] Comment on above: Performed By: #### C BC #### [facility] [address] [address] [address] Keturah Fisher Creatinine [Mass/Vol] 0.88 mg/dL Normal 0.55-1.02 [facility] Comment on above: Performed By: #### C BC #### [facility] [address] [place] [address] Dr. Keturah Fisher EGFR-AF BANGLADESHI >60 Normal >=60 [facility] Comment on above: Performed By: #### C BC #### [facility] [address] [place] [address] Dr. Keturah Fisher EGFR-NON AF BANGLADESHI >60 Normal >=60 [facility] Comment on above: Performed By: #### C BC #### [facility] [address] [address] [address] Keturah Fisher Globulin (S) [Mass/Vol] 3.3 g/dL Normal [facility] Comment on above: Performed By: #### C BC #### [facility] [address] [address] [address] Keturah Fisher Glucose [Mass/Vol] 111 mg/dL Critically high 74-106 [facility] Comment on above: Performed By: #### C BC #### [facility] [address] [place] [address] Dr. Keturah Fisher Potassium [Moles/Vol] 3.7 mmol/L Normal 3.5-5.1 [facility] Comment on above: Performed By: #### C BC #### [facility] [address] [address] [address] Keturah Fisher Protein [Mass/Vol] 7.6 g/dL Normal 6.4-8.2 [facility] Comment on above: Performed By: #### C BC #### [facility] [address] [address] [address] Keturah Fisher Sodium [Moles/Vol] 140 mmol/L Normal 136-145 [facility] Comment on above: Performed By: #### C BC #### [facility] [address] [address] [address] Keturah Fisher Urea nitrogen [Mass/Vol] 11.0 mg/dL Normal 7.0-18.0 [facility] Comment on above: Performed By: #### C BC #### [facility] [address] [address] [address] Keturah Fisher Urea nitrogen/Creatinine [Mass ratio] 12.5 mg/mg Normal [facility] Comment on above: Performed By: #### C BC #### [facility] [address] [address] [address] Keturah Fisher PROTIMEon 10-11-2021 INR Coag (PPP) [Relative time] 0.94 {INR} Normal [facility] Comment on above: Performed By: #### P T, PTT ####[facility] [id number] [address]Dr. Keturah Fisher INR GUIDELINES SEE BELOW Normal [facility] Comment on above: Result Comment: KARLY RED INR: 2.0 - 3.0 CONDITIONS NOT LISTED BELOW 2.5 - 3.5 FOR PROSTHETIC HEART VALVE REPLACEMENT 2.5 - 3.5 RECURRENT THROMBOSIS Performed By: #### P T, PTT ####[facility] [id number] [address]DrGopal Fisher PT Coag (PPP) [Time] 10.2 s Normal 9.0-11.6 [facility] Comment on above: Performed By: #### P T, PTT ####[facility] [id number] [address]Dr. Keturah Fisher PTTon 10-11-2021 aPTT Coag (Bld) [Time] 28.0 s Normal 22.3-36.2 [facility] Comment on above: Performed By: #### P T, PTT ####[facility] [id number] [place], [place] [address]Fs. Keturah Fisher Amphetamine Screen Ql (U)Ord ered By: Christa Lopez on 10-09-2021 Amphetamines Ql (U) Negative Negative [facility] Barbiturates [Presence] in U rineOrdered By: Christa Lopez on 10-09-2021 Barbiturates Ql (U) Negative Negative [facility] Basophils Auto (Bld) [#/Vol] Ordered By: Christa Lopez on 10-09-2021 Basophils (Bld) [#/Vol] 0.1 10*3/uL 0.0-0.2 [facility] Basophils/100 WBC Auto (Bld) Ordered By: Christa Loepz on 10-09-2021 Basophils/100 WBC (Bld) 0.9 % . [facility] Benzodiazepines [Presence] i n UrineOrdered By: Christa Lopez on 10-09-2021 Benzodiazepines Ql (U) Negative Negative [facility] Bilirubin Auto test strip Ql (U)Ordered By: Christa Lopez on 10-09-2021 Bilirubin Ql (U) Negative Negative [facility] Blood hemoglobin measurement (mass/volume)Ordered By: Christa Lopez on 10-09-2021 Hemoglobin (Bld) [Mass/Vol] 15.7 g/dL 11.8-15.4 [facility] Blood leukocytes automated c ount (number/volume)Ordered By: Christa Lopez on 10-09-2021 WBC (Bld) [#/Vol] 10.1 10*3/uL 4.5-11.0 [facility] Body fluid albumin measureme nt (mass/volume)Ordered By: Christa Lopez on 10-09-2021 Albumin (Body fld) [Mass/Vol] 4.5 g/dL 3.2-5.5 [facility] Cannabinoids [Presence] in U rine by Screen methodOrdered By: Christa Lopez on 10-09-2021 Cannabinoids Screen Ql (U) Negative Negative [facility] Comment on above: These are unconfirme d results and should not be used for legal purposes. Drug Cut-Off Concentration: AMPH 1000 ng/mL BAILEY 200 ng/mL JAKE 200 ng/mL COCM 300 ng/mL OP 300 ng/mL PCP 25 ng/mL THC 20 ng/mL Creatinine and Glomerular fi ltration rate.predicted panel (S/P/Bld)Ordered By: Christa Lopez on 10-09-2021 Creatinine [Mass/Vol] 0.85 mg/dL 0.44-1.03 [facility] Eosinophils Auto (Bld) [#/Vo l]Ordered By: Christa Lopez on 10-09-2021 Eosinophils (Bld) [#/Vol] 0.1 10*3/uL 0.0-0.45 [facility] Eosinophils/100 WBC Auto (Bl d)Ordered By: Christa Lopez on 10-09-2021 Eosinophils/100 WBC (Bld) 1.2 % . [facility] Erythrocyte distribution wid th Auto (RBC) [Ratio]Ordered By: Christa Lopez on 10-09-2021 Erythrocyte distribution width (RBC) [Ratio] 13.5 % 11.9-15.3 [facility] Estimated glomerular filtrat ion rate (GFR) non- AmericanOrdered By: Christa Lopez on 10-09-2021 GFR/1.73 sq M.predicted among non-blacks MDRD (S/P/Bld) [Vol rate/Area] > 60 mL/Min [facility] Globulin Calc (S) [Mass/Vol] Ordered By: Christa Lopez on 10-09-2021 Globulin (S) [Mass/Vol] 2.9 g/dL [facility] Hematocrit Auto (Bld) [Volum e fraction]Ordered By: Christa Lopez on 10-09-2021 Hematocrit (Bld) [Volume fraction] 47.1 % 34.0-46.4 [facility] Ketones Auto test strip (U) [Mass/Vol]Ordered By: Christa Lopez on 10-09-2021 Ketones (U) [Mass/Vol] Negative Negative [facility] and C hemistry - challengeOrdered By: Christa Lopez on 10-09-2021 Lipase [Catalytic activity/Vol] 242.0 U/L 22-51 [facility] - Drug toxicology Ordered By: Christa Lopez on 10-09-2021 Opiates Ql (U) Negative Negative [facility] - Hematology and Cell countsOrdered By: Christa Lopez on 10-09-2021 Nucleated RBC/100 WBC (Bld) [Ratio] 0.1 % 0-0.5 [facility] Lymphocytes Auto (Bld) [#/Vo l]Ordered By: Christa Lopez on 10-09-2021 Lymphocytes (Bld) [#/Vol] 2.6 10*3/uL 1.00-4.8 [facility] Lymphocytes/100 WBC Auto (Bl d)Ordered By: Christa Lopez on 10-09-2021 Lymphocytes/100 WBC (Bld) 26.0 % . [facility] MCH Auto (RBC) [Entitic mass ]Ordered By: Christa Lopez on 10-09-2021 MCH (RBC) [Entitic mass] 32.4 pg 24.7-34.3 [facility] MCHC Auto (RBC) [Mass/Vol]Or dered By: Christa Lopez on 10-09-2021 MCHC (RBC) [Mass/Vol] 33.3 g/dL 32.0-35.0 [facility] MCV Auto (RBC) [Entitic vol] Ordered By: Christa Lopez on 10-09-2021 MCV (RBC) [Entitic vol] 97.3 fL 80-100 [facility] Monocytes Auto (Bld) [#/Vol] Ordered By: Christa Lopez on 10-09-2021 Monocytes (Bld) [#/Vol] 0.8 10*3/uL 0.0-0.8 [facility] Monocytes/100 WBC Auto (Bld) Ordered By: Christa Lopez on 10-09-2021 Monocytes/100 WBC (Bld) 7.6 % . [facility] Neutrophils Auto (Bld) [#/Vo l]Ordered By: Christa Lopez on 10-09-2021 Neutrophils (Bld) [#/Vol] 6.5 10*3/uL 1.8-7.7 [facility] Neutrophils/100 WBC Auto (Bl d)Ordered By: Christa Lopez on 10-09-2021 Neutrophils/100 WBC (Bld) 64.3 % . [facility] No Panel InformationOrdered By: Christa Lopez on 10-09-2021 Estimated GFR () > 60 mL/Min [facility] Comment on above: GFR estimated refere nce range: According to KDOQI guidelines, <60 ml/min/1.73m2 is sufficient to diagnose a patient with chronic kidney disease. Pharmacy Creatinine Clearance (Chem 61.23 [facility] Phencyclidine Screen Ql (U)O rdered By: Christa Lopez on 10-09-2021 Phencyclidine Ql (U) Negative Negative [facility] Platelet mean volume Auto (B ld) [Entitic vol]Ordered By: Christa Lopez on 10-09-2021 Platelet mean volume (Bld) [Entitic vol] 8.5 fL 6.3-10.7 [facility] Platelets Auto (Bld) [#/Vol] Ordered By: Christa Lopez on 10-09-2021 Platelets (Bld) [#/Vol] 284 10*3/uL 150-450 [facility] Protein Auto test strip (U) [Mass/Vol]Ordered By: Christa Lopez on 10-09-2021 Protein (U) [Mass/Vol] Negative Negative [facility] Protein [Mass/volume] in Ser um or PlasmaOrdered By: Christa Lopez on 10-09-2021 Protein [Mass/Vol] 7.4 g/dL 6.1-7.9 [facility] RBC Auto (Bld) [#/Vol]Ordere d By: Christa Lopez on 10-09-2021 RBC (Bld) [#/Vol] 4.84 10*6/uL 3.60-5.00 [facility] Serum or plasma alanine hughes otransferase measurement without P-5'-P (enzymatic activiOrdered By: Christa Lopez on 10-09-2021 ALT No additional P-5'-P [Catalytic activity/Vol] 19 U/L 10-60 [facility] Serum or plasma albumin/glob ulin mass ratioOrdered By: Christa Lopez on 10-09-2021 Albumin/Globulin [Mass ratio] 1.6 {ratio} [facility] Serum or plasma alkaline jaqueline sphatase measurement (enzymatic activity/volume)Ordered By: Christa Lopez on 10-09-2021 ALP [Catalytic activity/Vol] 138 U/L 32-92 [facility] Serum or plasma aspartate am inotransferase measurement (enzymatic activity/volume)Ordered By: Christa Lopez on 10-09-2021 AST [Catalytic activity/Vol] 31 U/L 10-42 [facility] Serum or plasma calcium priscilla urement (mass/volume)Ordered By: Christa Lopez on 10-09-2021 Calcium [Mass/Vol] 10.3 mg/dL 8.2-10.2 [facility] Serum or plasma chloride daron surement (moles/volume)Ordered By: Christa Lopez on 10-09-2021 Chloride [Moles/Vol] 100 mmol/L 95-114 [facility] Serum or plasma glucose priscilla urement (mass/volume)Ordered By: Christa Lopez on 10-09-2021 Glucose [Mass/Vol] 75 mg/dL 70-100 [facility] Comment on above: ADA recommended refe rence range Random Glucose Reference Range is dependent on time and content of last meal. Glucose of more than 200 mg/dL in a nonstressed, ambulatory subject supports the diagnosis of Diabetes Mellitus. Serum or plasma potassium me asurement (moles/volume)Ordered By: Christa Lopez on 10-09-2021 Potassium [Moles/Vol] 3.9 mmol/L 3.5-5.1 [facility] Serum or plasma sodium measu rement (moles/volume)Ordered By: Christa Lopez on 10-09-2021 Sodium [Moles/Vol] 136 mmol/L 136-146 [facility] Serum or plasma total biliru bin measurement (mass/volume)Ordered By: Christa Lopez on 10-09-2021 Bilirubin [Mass/Vol] 0.4 mg/dL 0.3-1.2 [facility] Serum or plasma total carbon dioxide measurement (moles/volume)Ordered By: Christa Lopez on 10-09-2021 CO2 [Moles/Vol] 24.1 mmol/L 22.0-30.0 [facility] Serum or plasma urea nitroge n measurement (mass/volume)Ordered By: Chrsita Lopez on 10-09-2021 Urea nitrogen [Mass/Vol] 12 mg/dL 9- [facility] Troponin I.cardiac [Mass/vol ume] in Serum or Plasma by High sensitivity methodOrdered By: Christa Lopez on 10-09-2021 Troponin I.cardiac High sensitivity method [Mass/Vol] 3 pg/mL 0-15 [facility] Urine appearanceOrdered By: Christa Lopez on 10-09-2021 Appearance (U) Clear Clear [facility] Urine cocaine detectionOrder ed By: Christa Lopez on 10-09-2021 Cocaine Ql (U) Negative Negative [facility] Urine colorOrdered By: Christa Lopez on 10-09-2021 Color (U) Yellow Yellow [facility] Urine glucose measurement by automated test strip (mass/volume)Ordered By: Christa Lopez on 10-09-2021 Glucose Auto test strip (U) [Mass/Vol] Normal mg/dL Normal [facility] Urine hemoglobin detection b y automated test stripOrdered By: Christa Lopez on 10-09-2021 Hemoglobin Auto test strip Ql (U) Negative Negative [facility] Urine leukocyte esterase det ection by automated test stripOrdered By: Christa Lopez on 10-09-2021 Leukocyte esterase Auto test strip Ql (U) Negative Negative [facility] Urine nitrite detection by a utomated test stripOrdered By: Christa Lopez on 10-09-2021 Nitrite Auto test strip Ql (U) Negative Negative [facility] Urobilinogen Auto test strip (U) [Mass/Vol]Ordered By: Christa Lopez on 10-09-2021 Urobilinogen (U) [Mass/Vol] Normal mg/dL Normal [facility] pH Auto test strip (U)Ordere d By: Christa Lopez on 10-09-2021 pH (U) 1.025 [pH] 1.001-1.030 [facility] pH (U) 5.5 [pH] 5.0-9.0 [facility] Albumin [Mass/volume] in Ser um or PlasmaOrdered By: Reinaldo Amor on 10-04-2021 Albumin [Mass/Vol] 3.6 g/dL 3.2-5.5 [facility] Basophils Auto (Bld) [#/Vol] Ordered By: Reinaldo Amor on 10-04-2021 Basophils (Bld) [#/Vol] 0.1 10*3/uL 0.0-0.2 [facility] Basophils/100 WBC Auto (Bld) Ordered By: Reinaldo Amor on 10-04-2021 Basophils/100 WBC (Bld) 0.8 % . [facility] Bilirubin Auto test strip Ql (U)Ordered By: Reinaldo Amor on 10-04-2021 Bilirubin Ql (U) Negative Negative [facility] Blood hemoglobin measurement (mass/volume)Ordered By: Reinaldo Amor on 10-04-2021 Hemoglobin (Bld) [Mass/Vol] 13.9 g/dL 11.8-15.4 [facility] Blood leukocytes automated c ount (number/volume)Ordered By: Reinaldo Amor on 10-04-2021 WBC (Bld) [#/Vol] 10.4 10*3/uL 4.5-11.0 [facility] Creatinine and Glomerular fi ltration rate.predicted panel (S/P/Bld)Ordered By: Reinaldo Amor on 10-04-2021 Creatinine [Mass/Vol] 0.73 mg/dL 0.44-1.03 [facility] Direct bilirubin measurement Ordered By: Reinaldo Amor on 10-04-2021 Bilirubin.direct [Mass/Vol] mg/dL 0.0-0.4 [facility] Eosinophils Auto (Bld) [#/Vo l]Ordered By: Reinaldo Amor on 10-04-2021 Eosinophils (Bld) [#/Vol] 0.1 10*3/uL 0.0-0.45 [facility] Eosinophils/100 WBC Auto (Bl d)Ordered By: Reinaldo Amor on 10-04-2021 Eosinophils/100 WBC (Bld) 0.5 % . [facility] Erythrocyte distribution wid th Auto (RBC) [Ratio]Ordered By: Reinaldo Amor on 10-04-2021 Erythrocyte distribution width (RBC) [Ratio] 13.7 % 11.9-15.3 [facility] Estimated glomerular filtrat ion rate (GFR) non- AmericanOrdered By: Reinaldo Amor on 10-04-2021 GFR/1.73 sq M.predicted among non-blacks MDRD (S/P/Bld) [Vol rate/Area] > 60 mL/Min [facility] Globulin Calc (S) [Mass/Vol] Ordered By: Reinaldo Amor on 10-04-2021 Globulin (S) [Mass/Vol] 2.6 g/dL [facility] Hematocrit Auto (Bld) [Volum e fraction]Ordered By: Reinaldo Amor on 10-04-2021 Hematocrit (Bld) [Volume fraction] 41.1 % 34.0-46.4 [facility] Ketones Auto test strip (U) [Mass/Vol]Ordered By: Reinaldo Amor on 10-04-2021 Ketones (U) [Mass/Vol] Negative Negative [facility] Laboratory - Chemistry and C hemistry - challengeOrdered By: Reinaldo Amor on 10-04-2021 Lipase [Catalytic activity/Vol] 107.0 U/L 22-51 [facility] Laboratory - Hematology and Cell countsOrdered By: Reinaldo Amor on 10-04-2021 Nucleated RBC/100 WBC (Bld) [Ratio] 0.1 % 0-0.5 [facility] Lymphocytes Auto (Bld) [#/Vo l]Ordered By: Reinaldo Amor on 10-04-2021 Lymphocytes (Bld) [#/Vol] 2.5 10*3/uL 1.00-4.8 [facility] Lymphocytes/100 WBC Auto (Bl d)Ordered By: Reinaldo Amor on 10-04-2021 Lymphocytes/100 WBC (Bld) 24.1 % . [facility] MCH Auto (RBC) [Entitic mass ]Ordered By: Reinaldo Amor on 10-04-2021 MCH (RBC) [Entitic mass] 32.6 pg 24.7-34.3 [facility] MCHC Auto (RBC) [Mass/Vol]Or dered By: Reinaldo Amor on 10-04-2021 MCHC (RBC) [Mass/Vol] 33.8 g/dL 32.0-35.0 [facility] MCV Auto (RBC) [Entitic vol] Ordered By: Reinaldo Amor on 10-04-2021 MCV (RBC) [Entitic vol] 96.5 fL 80-100 [facility] Monocytes Auto (Bld) [#/Vol] Ordered By: Reinaldo Amor on 10-04-2021 Monocytes (Bld) [#/Vol] 0.9 10*3/uL 0.0-0.8 [facility] Monocytes/100 WBC Auto (Bld) Ordered By: Reinaldo Amor on 10-04-2021 Monocytes/100 WBC (Bld) 8.4 % . [facility] Neutrophils Auto (Bld) [#/Vo l]Ordered By: Reinaldo Amor on 10-04-2021 Neutrophils (Bld) [#/Vol] 6.9 10*3/uL 1.8-7.7 [facility] Neutrophils/100 WBC Auto (Bl d)Ordered By: Reinaldo Amor on 10-04-2021 Neutrophils/100 WBC (Bld) 66.2 % . [facility] No Panel InformationOrdered By: Reinaldo Amor on 10-04-2021 Estimated GFR () > 60 mL/Min [facility] Comment on above: GFR estimated refere nce range: According to KDOQI guidelines, <60 ml/min/1.73m2 is sufficient to diagnose a patient with chronic kidney disease. Pharmacy Creatinine Clearance (Chem 71.30 [facility] Platelet mean volume Auto (B ld) [Entitic vol]Ordered By: Reinaldo Amor on 10-04-2021 Platelet mean volume (Bld) [Entitic vol] 8.0 fL 6.3-10.7 [facility] Platelets Auto (Bld) [#/Vol] Ordered By: Reinaldo Amor on 10-04-2021 Platelets (Bld) [#/Vol] 268 10*3/uL 150-450 [facility] Protein Auto test strip (U) [Mass/Vol]Ordered By: Reinaldo Amor on 10-04-2021 Protein (U) [Mass/Vol] Negative Negative [facility] Protein [Mass/volume] in Ser um or PlasmaOrdered By: Reinaldo Amor on 10-04-2021 Protein [Mass/Vol] 6.2 g/dL 6.1-7.9 [facility] RBC Auto (Bld) [#/Vol]Ordere d By: Reinaldo Amor on 10-04-2021 RBC (Bld) [#/Vol] 4.26 10*6/uL 3.60-5.00 [facility] Serum or plasma alanine hughes otransferase measurement without P-5'-P (enzymatic activiOrdered By: Reinaldo Amor on 10-04-2021 ALT No additional P-5'-P [Catalytic activity/Vol] 15 U/L 10-60 [facility] Serum or plasma albumin/glob ulin mass ratioOrdered By: Reinaldo Amor on 10-04-2021 Albumin/Globulin [Mass ratio] 1.4 {ratio} [facility] Serum or plasma alkaline jaqueline sphatase measurement (enzymatic activity/volume)Ordered By: Reinaldo Amor on 10-04-2021 ALP [Catalytic activity/Vol] 103 U/L 32-92 [facility] Serum or plasma amylase priscilla urement (enzymatic activity/volume)Ordered By: Reinaldo Amor on 10-04-2021 Amylase [Catalytic activity/Vol] 134 U/L 28-100 [facility] Serum or plasma aspartate am inotransferase measurement (enzymatic activity/volume)Ordered By: Reinaldo Amor on 10-04-2021 AST [Catalytic activity/Vol] 20 U/L 10-42 [facility] Serum or plasma calcium priscilla urement (mass/volume)Ordered By: Reinaldo Amor on 10-04-2021 Calcium [Mass/Vol] 9.6 mg/dL 8.2-10.2 [facility] Serum or plasma chloride daron surement (moles/volume)Ordered By: Reinaldo Amor on 10-04-2021 Chloride [Moles/Vol] 103 mmol/L 95-114 [facility] Serum or plasma ethanol priscilla urement (mass/volume)Ordered By: Reinaldo Amor on 10-04-2021 Ethanol [Mass/Vol] mg/dL [facility] Ethanol [Mass/Vol] TNP [facility] Comment on above: Test not performed Serum or plasma glucose priscilla urement (mass/volume)Ordered By: Reinaldo Amor on 10-04-2021 Glucose [Mass/Vol] 120 mg/dL 70-100 [facility] Comment on above: ADA recommended refe rence range Random Glucose Reference Range is dependent on time and content of last meal. Glucose of more than 200 mg/dL in a nonstressed, ambulatory subject supports the diagnosis of Diabetes Mellitus. Serum or plasma non-glucuron idated bilirubin measurement (mass/volume)Ordered By: Reinaldo Amor on 10-04-2021 Bilirubin.indirect [Mass/Vol] TNP [facility] Comment on above: Test not performed Serum or plasma potassium me asurement (moles/volume)Ordered By: Reinaldo Amor on 10-04-2021 Potassium [Moles/Vol] 3.7 mmol/L 3.5-5.1 [facility] Serum or plasma sodium measu rement (moles/volume)Ordered By: Reinaldo Amor on 10-04-2021 Sodium [Moles/Vol] 137 mmol/L 136-146 [facility] Serum or plasma total biliru bin measurement (mass/volume)Ordered By: Reinaldo Amor on 10-04-2021 Bilirubin [Mass/Vol] 0.5 mg/dL 0.3-1.2 [facility] Serum or plasma total carbon dioxide measurement (moles/volume)Ordered By: Reinaldo Amor on 10-04-2021 CO2 [Moles/Vol] 24.9 mmol/L 22.0-30.0 [facility] Serum or plasma urea nitroge n measurement (mass/volume)Ordered By: Reinaldo Amor on 10-04-2021 Urea nitrogen [Mass/Vol] 7 mg/dL 9-23 [facility] Urine appearanceOrdered By: Reinaldo Amor on 10-04-2021 Appearance (U) Clear Clear [facility] Urine colorOrdered By: Ml Amor on 10-04-2021 Color (U) Yellow Yellow [facility] Urine glucose measurement by automated test strip (mass/volume)Ordered By: Reinaldo Amor on 10-04-2021 Glucose Auto test strip (U) [Mass/Vol] Normal mg/dL Normal [facility] Urine hemoglobin detection b y automated test stripOrdered By: Reinaldo Amor on 10-04-2021 Hemoglobin Auto test strip Ql (U) Negative Negative [facility] Urine leukocyte esterase det ection by automated test stripOrdered By: Reinaldo Amor on 10-04-2021 Leukocyte esterase Auto test strip Ql (U) Negative Negative [facility] Urine nitrite detection by a utomated test stripOrdered By: Reinaldo Amor on 10-04-2021 Nitrite Auto test strip Ql (U) Negative Negative [facility] Urobilinogen Auto test strip (U) [Mass/Vol]Ordered By: Reinaldo Amor on 10-04-2021 Urobilinogen (U) [Mass/Vol] Normal mg/dL Normal [facility] pH Auto test strip (U)Ordere d By: Reinaldo Amor on 10-04-2021 pH (U) 1.030 [pH] 1.001-1.030 [facility] pH (U) 5.5 [pH] 5.0-9.0 [facility] Basophils Auto (Bld) [#/Vol] Ordered By: Reinaldo Amor on 09-25-2021 Basophils (Bld) [#/Vol] 0.1 10*3/uL 0.0-0.2 [facility] Basophils/100 WBC Auto (Bld) Ordered By: Reinaldo Amor on 09-25-2021 Basophils/100 WBC (Bld) 1.2 % . [facility] Blood hemoglobin measurement (mass/volume)Ordered By: Reinaldo Amor on 09-25-2021 Hemoglobin (Bld) [Mass/Vol] 14.2 g/dL 11.8-15.4 [facility] Blood leukocytes automated c ount (number/volume)Ordered By: Reinaldo Amor on 09-25-2021 WBC (Bld) [#/Vol] 9.3 10*3/uL 4.5-11.0 [facility] Body fluid albumin measureme nt (mass/volume)Ordered By: PROVIDER TEMP on 09-25-2021 Albumin (Body fld) [Mass/Vol] 4.3 g/dL 3.2-5.5 [facility] Creatinine and Glomerular fi ltration rate.predicted panel (S/P/Bld)Ordered By: PROVIDER TEMP on 09-25-2021 Creatinine [Mass/Vol] 0.82 mg/dL 0.44-1.03 [facility] Eosinophils Auto (Bld) [#/Vo l]Ordered By: Reinaldo Amor on 09-25-2021 Eosinophils (Bld) [#/Vol] 0.2 10*3/uL 0.0-0.45 [facility] Eosinophils/100 WBC Auto (Bl d)Ordered By: Reinaldo Amor on 09-25-2021 Eosinophils/100 WBC (Bld) 1.9 % . [facility] Erythrocyte distribution wid th Auto (RBC) [Ratio]Ordered By: Reinaldo Amor on 09-25-2021 Erythrocyte distribution width (RBC) [Ratio] 13.7 % 11.9-15.3 [facility] Estimated glomerular filtrat ion rate (GFR) non- AmericanOrdered By: PROVIDER TEMP on 09-25-2021 GFR/1.73 sq M.predicted among non-blacks MDRD (S/P/Bld) [Vol rate/Area] > 60 mL/Min [facility] Globulin Calc (S) [Mass/Vol] Ordered By: PROVIDER TEMMaty on 09-25-2021 Globulin (S) [Mass/Vol] 3.3 g/dL [facility] Hematocrit Auto (Bld) [Volum e fraction]Ordered By: Reinaldo Amor on 09-25-2021 Hematocrit (Bld) [Volume fraction] 42.1 % 34.0-46.4 [facility] Laboratory - Chemistry and C hemistry - challengeOrdered By: Reinaldo Amor on 09-25-2021 Lipase [Catalytic activity/Vol] 64.0 U/L 22-51 [facility] Laboratory - Hematology and Cell countsOrdered By: Reinaldo Amor on 09-25-2021 Nucleated RBC/100 WBC (Bld) [Ratio] 0.1 % 0-0.5 [facility] Lymphocytes Auto (Bld) [#/Vo l]Ordered By: Reinaldo Amor on 09-25-2021 Lymphocytes (Bld) [#/Vol] 2.6 10*3/uL 1.00-4.8 [facility] Lymphocytes/100 WBC Auto (Bl d)Ordered By: Reinaldo Amor on 09-25-2021 Lymphocytes/100 WBC (Bld) 28.1 % . [facility] MCH Auto (RBC) [Entitic mass ]Ordered By: Reinaldo Amor on 09-25-2021 MCH (RBC) [Entitic mass] 32.5 pg 24.7-34.3 [facility] MCHC Auto (RBC) [Mass/Vol]Or dered By: Reinaldo Amor on 09-25-2021 MCHC (RBC) [Mass/Vol] 33.7 g/dL 32.0-35.0 [facility] MCV Auto (RBC) [Entitic vol] Ordered By: Reinaldo Amor on 09-25-2021 MCV (RBC) [Entitic vol] 96.7 fL 80-100 [facility] Monocytes Auto (Bld) [#/Vol] Ordered By: Reinaldo Amor on 09-25-2021 Monocytes (Bld) [#/Vol] 0.8 10*3/uL 0.0-0.8 [facility] Monocytes/100 WBC Auto (Bld) Ordered By: Reinaldo Amor on 09-25-2021 Monocytes/100 WBC (Bld) 8.2 % . [facility] Neutrophils Auto (Bld) [#/Vo l]Ordered By: Reinaldo Amor on 09-25-2021 Neutrophils (Bld) [#/Vol] 5.6 10*3/uL 1.8-7.7 [facility] Neutrophils/100 WBC Auto (Bl d)Ordered By: Reinaldo Amor on 09-25-2021 Neutrophils/100 WBC (Bld) 60.6 % . [facility] No Panel InformationOrdered By: PROVIDER TEMP on 09-25-2021 Estimated GFR () > 60 mL/Min [facility] Comment on above: GFR estimated refere nce range: According to KDOQI guidelines, <60 ml/min/1.73m2 is sufficient to diagnose a patient with chronic kidney disease. Pharmacy Creatinine Clearance (Chem 63.47 [facility] Platelet mean volume Auto (B ld) [Entitic vol]Ordered By: Reinaldo Amor on 09-25-2021 Platelet mean volume (Bld) [Entitic vol] 8.6 fL 6.3-10.7 [facility] Platelets Auto (Bld) [#/Vol] Ordered By: Reinaldo Amor on 09-25-2021 Platelets (Bld) [#/Vol] 221 10*3/uL 150-450 [facility] Protein [Mass/volume] in Ser um or PlasmaOrdered By: PROVIDER TEMP on 09-25-2021 Protein [Mass/Vol] 7.6 g/dL 6.1-7.9 [facility] RBC Auto (Bld) [#/Vol]Ordere d By: Reinaldo Amor on 09-25-2021 RBC (Bld) [#/Vol] 4.35 10*6/uL 3.60-5.00 [facility] Serum or plasma alanine hughes otransferase measurement without P-5'-P (enzymatic activiOrdered By: PROVIDER TEMP on 09-25-2021 ALT No additional P-5'-P [Catalytic activity/Vol] 14 U/L 10-60 [facility] Serum or plasma albumin/glob ulin mass ratioOrdered By: PROVIDER TEMP on 09-25-2021 Albumin/Globulin [Mass ratio] 1.3 {ratio} [facility] Serum or plasma alkaline jaqueline sphatase measurement (enzymatic activity/volume)Ordered By: PROVIDER TEMP on 09-25-2021 ALP [Catalytic activity/Vol] 127 U/L 32-92 [facility] Serum or plasma amylase priscilla urement (enzymatic activity/volume)Ordered By: Reinaldo Amor on 09-25-2021 Amylase [Catalytic activity/Vol] 171 U/L 28-100 [facility] Serum or plasma aspartate am inotransferase measurement (enzymatic activity/volume)Ordered By: PROVIDER TEMP on 09-25-2021 AST [Catalytic activity/Vol] 21 U/L 10-42 [facility] Serum or plasma calcium priscilla urement (mass/volume)Ordered By: PROVIDER TEMP on 09-25-2021 Calcium [Mass/Vol] 10.1 mg/dL 8.2-10.2 [facility] Serum or plasma chloride daron surement (moles/volume)Ordered By: PROVIDER TEMP on 09-25-2021 Chloride [Moles/Vol] 103 mmol/L 95-114 [facility] Serum or plasma glucose priscilla urement (mass/volume)Ordered By: PROVIDER TEMP on 09-25-2021 Glucose [Mass/Vol] 93 mg/dL 70-100 [facility] Comment on above: ADA recommended refe rence range Random Glucose Reference Range is dependent on time and content of last meal. Glucose of more than 200 mg/dL in a nonstressed, ambulatory subject supports the diagnosis of Diabetes Mellitus. Serum or plasma potassium me asurement (moles/volume)Ordered By: PROVIDER TEMP on 09-25-2021 Potassium [Moles/Vol] 3.9 mmol/L 3.5-5.1 [facility] Serum or plasma sodium measu rement (moles/volume)Ordered By: PROVIDER TEMP on 09-25-2021 Sodium [Moles/Vol] 137 mmol/L 136-146 [facility] Serum or plasma total biliru bin measurement (mass/volume)Ordered By: PROVIDER TEMP on 09-25-2021 Bilirubin [Mass/Vol] 0.3 mg/dL 0.3-1.2 [facility] Serum or plasma total carbon dioxide measurement (moles/volume)Ordered By: PROVIDER TEMP on 09-25-2021 CO2 [Moles/Vol] 26.3 mmol/L 22.0-30.0 [facility] Serum or plasma urea nitroge n measurement (mass/volume)Ordered By: PROVIDER TEMP on 09-25-2021 Urea nitrogen [Mass/Vol] 8 mg/dL 9-23 [facility] AMYLASEon 09-17-2021 Amylase [Catalytic activity/Vol] 142 U/L Critically high 25-115 [facility] Comment on above: Performed By: #### A MY, CMP, LIPA ####[facility] [address] [place] [id number]. Keturah Fisher CBC AUTO DIFFon 09-17-2021 BASO # 0.1 103/ul Normal 0.0-0.1 [facility] Comment on above: Performed By: #### C BC ####[facility] [address] [place] [id number] Fisher Basophils/100 WBC (Bld) 0.7 % Normal 0.2-2.0 [facility] Comment on above: Performed By: #### C BC ####[facility] [address] [place] [id number]. Keturah Fisher EO # 0.1 103/ul Normal 0.0-0.7 [facility] Comment on above: Performed By: #### C BC ####[facility] [address] [place] [address]Dr. Keturah Fisher Eosinophils/100 WBC (Bld) 1.3 % Normal 0.9-7.0 [facility] Comment on above: Performed By: #### C BC ####[facility] [address] [place], [place] [address]Dr. Keturah Fisher Erythrocyte distribution width (RBC) [Ratio] 13.2 % Normal 11.0-15.0 [facility] Comment on above: Performed By: #### C BC ####[facility] [address] [place], [place] [address]Dr. Keturah Fisher Hematocrit (Bld) [Volume fraction] 43.7 % Normal 36.0-48.0 [facility] Comment on above: Performed By: #### C BC ####[facility] [address] [place], [place] [address]Dr. Keturah Fisher Hemoglobin (Bld) [Mass/Vol] 14.7 g/dL Normal 12.0-16.0 [facility] Comment on above: Performed By: #### C BC ####[facility] [address] [place], [place] [address]Dr. Keturah Fisher IG # 0.01 10e3/ul Normal 0.00-0.03 [facility] Comment on above: Performed By: #### C BC ####[facility] [address] [place], [place] [address]Dr. Keturah Fisher IG % 0.1 % Normal 0.0-0.5 [facility] Comment on above: Performed By: #### C BC ####[facility] [address] [place], [place] [address]DrGopal Keturah Phillip LYMPH # 2.7 103/ul Normal 1.2-3.8 [facility] Comment on above: Performed By: #### C BC ####[facility] [address] [place], [place] [address]Dr. Keturah Fisher Lymphocytes/100 WBC (Bld) 30.1 % Normal 20.5-60.0 [facility] Comment on above: Performed By: #### C BC ####[facility] [address] [place] [address]Dr. Keturah Fisher MANUAL DIFF REQ NO Normal [facility] Comment on above: Performed By: #### C BC ####[facility] [address] [place] [address]Dr. Keturah Fisher MCH (RBC) [Entitic mass] 32.4 pg Normal 26.7-34.0 [facility] Comment on above: Performed By: #### C BC ####[facility] [address] [place], [place] [address]Dr. Keturah Fisher MCHC (RBC) [Mass/Vol] 33.6 g/dL Normal 29.9-35.2 [facility] Comment on above: Performed By: #### C BC ####[facility] [address] [place], [place] [address]Dr. Keturah Fisher MCV (RBC) [Entitic vol] 96.3 fL Normal 81.0-99.0 [facility] Comment on above: Performed By: #### C BC ####[facility] [address] [place], [place] [address]Dr. Keturah Fisher MONO # 0.8 103/ul Normal 0.3-0.8 [facility] Comment on above: Performed By: #### C BC ####[facility] [address] [place], [place] [address]Dr. Keturah Fisher Monocytes/100 WBC (Bld) 8.7 % Normal 1.7-12.0 [facility] Comment on above: Performed By: #### C BC ####[facility] [address] [place], [place] [address]Dr. Keturah Fisher NEUT # 5.4 103/ul Normal 1.4-6.5 [facility] Comment on above: Performed By: #### C BC ####[facility] [address] [place], [place] [address]Dr. Keturah Fisher Neutrophils/100 WBC (Bld) 59.1 % Normal 43.0-75.0 [facility] Comment on above: Performed By: #### C BC ####[facility] [address] [place] [address]DrGopal Fisher Platelet mean volume (Bld) [Entitic vol] 9.6 fL Normal 9.5-13.5 [facility] Comment on above: Performed By: #### C BC ####[facility] [address] [place] [address]Dr. Keturah Fisher PLT 272 103/ul Normal 150-450 [facility] Comment on above: Performed By: #### C BC ####[facility] [address] [place] [address]Dr. Keturah Fisher RBC 4.54 106/ul Normal 4.20-5.40 [facility] Comment on above: Performed By: #### C BC ####[facility] [address] [place] [address]Dr. Keturah Fisher WBC 9.1 103/ul Normal 4.0-11.0 [facility] Comment on above: Performed By: #### C BC ####[facility] [address] [place] [address]DrGopal Fisher ETHANOL (BLD ALC)on 09-18-19 22 ALC NOTE NOTE: 80 mg/dl is th e legal limit for a blood alcohol level Normal [facility] Comment on above: Performed By: #### L IPA, CMP, CRP, NAT #### [facility] [address] [address] [address] Keturah Fisher Ethanol [Mass/Vol] mg/dL Normal [facility] Comment on above: Performed By: #### L IPA, CMP, CRP, NAT #### [facility] [address] [address] [address] Keturah Fisher LIPASEon 09-17-2021 Lipase [Catalytic activity/Vol] 524.0 U/L Critically high 73.0-393.0 [facility] Comment on above: Performed By: #### C BC #### [facility] [address] [place] [address] Dr. Keturah Fisher PROF 14(COMP METB)on 022 Albumin [Mass/Vol] 3.9 g/dL Normal 3.4-5.0 [facility] Comment on above: Performed By: #### C BC #### [facility] [address] [place] [address] Dr. Keturah Fisher Albumin/Globulin [Mass ratio] 1.1 {ratio} Normal [facility] Comment on above: Performed By: #### C BC #### [facility] [address] [place] [address] Dr. Keturah Fisher ALP [Catalytic activity/Vol] 136 U/L Critically high 46-116 [facility] Comment on above: Performed By: #### C BC #### [facility] [address] [place] [address] Dr. Keturah Fisher ALT [Catalytic activity/Vol] 21 U/L Normal 14-59 [facility] Comment on above: Performed By: #### C BC #### [facility] [address] [place] [address] Dr. Keturah Fisher Anion gap [Moles/Vol] 12.7 mmol/L Normal [facility] Comment on above: Performed By: #### C BC #### [facility] [address] [place] [address] Dr. Keturah Fisher AST [Catalytic activity/Vol] 16 U/L Normal 15-37 [facility] Comment on above: Performed By: #### C BC #### [facility] [address] [place] [address] Dr. Keturah Fisher Bilirubin [Mass/Vol] 0.2 mg/dL Normal 0.2-1.0 [facility] Comment on above: Performed By: #### C BC #### [facility] [address] [place] [address] Dr. Keturah Fisher Calcium [Mass/Vol] 9.9 mg/dL Normal 8.5-10.1 [facility] Comment on above: Performed By: #### C BC #### [facility] [address] [address] [address] Keturah Fisher Chloride [Moles/Vol] 106 mmol/L Normal 98-107 [facility] Comment on above: Performed By: #### C BC #### [facility] [address] [place] [address] Dr. Keturah Fisher CO2 [Moles/Vol] 25.9 mmol/L Normal 21.0-32.0 [facility] Comment on above: Performed By: #### C BC #### [facility] [address] [place] [address] Dr. Keturah Fisher Creatinine [Mass/Vol] 0.96 mg/dL Normal 0.55-1.02 [facility] Comment on above: Performed By: #### C BC #### [facility] [address] [place] [address] Dr. Keturah Fisher EGFR-AF BANGLADESHI >60 Normal >=60 [facility] Comment on above: Performed By: #### C BC #### [facility] [address] [place] [address] Dr. Keturah Fisher EGFR-NON AF BANGLADESHI >60 Normal >=60 [facility] Comment on above: Performed By: #### C BC #### [facility] [address] [place] [address] Dr. Keturah Fisher Globulin (S) [Mass/Vol] 3.5 g/dL Normal [facility] Comment on above: Performed By: #### C BC #### [facility] [address] [place] [address] Dr. Keturah Fisher Glucose [Mass/Vol] 113 mg/dL Critically high 74-106 [facility] Comment on above: Performed By: #### C BC #### [facility] [address] [place] [address] Dr. Keturah Fisher Potassium [Moles/Vol] 3.6 mmol/L Normal 3.5-5.1 [facility] Comment on above: Performed By: #### C BC #### [facility] [address] [place] [address] Dr. Keturah Fisher Protein [Mass/Vol] 7.4 g/dL Normal 6.4-8.2 [facility] Comment on above: Performed By: #### C BC #### [facility] [address] [place] [address] Dr. Keturah Fisher Sodium [Moles/Vol] 141 mmol/L Normal 136-145 [facility] Comment on above: Performed By: #### C BC #### [facility] [address] [place] [address] Dr. Keturah Fisher Urea nitrogen [Mass/Vol] 8.0 mg/dL Normal 7.0-18.0 [facility] Comment on above: Performed By: #### C BC #### [facility] [address] [place] [address] Dr. Keturah Fisher Urea nitrogen/Creatinine [Mass ratio] 8.3 mg/mg Normal [facility] Comment on above: Performed By: #### C BC #### [facility] [address] [place] [address] Dr. Keturah Fisher AMYLASEon 08-26-2021 Amylase [Catalytic activity/Vol] 94 U/L Normal 25-115 [facility] Comment on above: Performed By: #### A MY, CMP, LIPA ####[facility] [address] [place], [place] [address]Dr. Keturah Fisher CBC AUTO DIFFon 08-26-2021 BASO # 0.1 103/ul Normal 0.0-0.1 [facility] Comment on above: Performed By: #### L IPA, CMP, CRP, NAT #### [facility] [address] [place] [address] Dr. Keturah Fisher Basophils/100 WBC (Bld) 0.7 % Normal 0.2-2.0 [facility] Comment on above: Performed By: #### L IPA, CMP, CRP, NAT #### [facility] [address] [place] [address] Dr. Keturah Fisher EO # 0.2 103/ul Normal 0.0-0.7 [facility] Comment on above: Performed By: #### L IPA, CMP, CRP, NAT #### [facility] [address] [place] [address] Dr. Keturah Fisher Eosinophils/100 WBC (Bld) 2.5 % Normal 0.9-7.0 [facility] Comment on above: Performed By: #### L IPA, CMP, CRP, NAT #### [facility] [address] [place] [address] Dr. Keturah Fisher Erythrocyte distribution width (RBC) [Ratio] 13.1 % Normal 11.0-15.0 [facility] Comment on above: Performed By: #### L IPA, CMP, CRP, NAT #### [facility] [address] [place] [address] Dr. Keturah Fisher Hematocrit (Bld) [Volume fraction] 42.4 % Normal 36.0-48.0 [facility] Comment on above: Performed By: #### L IPA, CMP, CRP, NAT #### [facility] [address] [place] [address] Dr. Keturah Fisher Hemoglobin (Bld) [Mass/Vol] 14.1 g/dL Normal 12.0-16.0 [facility] Comment on above: Performed By: #### L IPA, CMP, CRP, NAT #### [facility] [address] [place] [address] Dr. Kteurah Fisher IG # 0.03 10e3/ul Normal 0.00-0.03 [facility] Comment on above: Performed By: #### L IPA, CMP, CRP, NAT #### [facility] [address] [place] [address] Dr. Keturah Fisher IG % 0.3 % Normal 0.0-0.5 [facility] Comment on above: Performed By: #### L IPA, CMP, CRP, NAT #### [facility] [address] [place] [address] Dr. Keturah Fisher LYMPH # 2.6 103/ul Normal 1.2-3.8 [facility] Comment on above: Performed By: #### L IPA, CMP, CRP, NAT #### [facility] [address] [place] [address] Dr. Keturah Fisher Lymphocytes/100 WBC (Bld) 27.7 % Normal 20.5-60.0 [facility] Comment on above: Performed By: #### L IPA, CMP, CRP, NAT #### [facility] [address] [place] [address] Dr. Keturah Fisher MANUAL DIFF REQ NO Normal [facility] Comment on above: Performed By: #### L IPA, CMP, CRP, NAT #### [facility] [address] [place] [address] Dr. Keturah Fisher MCH (RBC) [Entitic mass] 32.6 pg Normal 26.7-34.0 [facility] Comment on above: Performed By: #### L IPA, CMP, CRP, NAT #### [facility] [address] [place] [address] Dr. Keturah Fisher MCHC (RBC) [Mass/Vol] 33.3 g/dL Normal 29.9-35.2 [facility] Comment on above: Performed By: #### L IPA, CMP, CRP, NAT #### [facility] [address] [place] [address] Dr. Keturah Fisher MCV (RBC) [Entitic vol] 97.9 fL Normal 81.0-99.0 [facility] Comment on above: Performed By: #### L IPA, CMP, CRP, NAT #### [facility] [address] [place] [address] Dr. Keturah Fisher MONO # 1.2 103/ul Critically high 0.3-0.8 [facility] Comment on above: Performed By: #### L IPA, CMP, CRP, NAT #### [facility] [address] [place] [address] Dr. Keturah Fisher Monocytes/100 WBC (Bld) 12.9 % Critically high 1.7-12.0 [facility] Comment on above: Performed By: #### L IPA, CMP, CRP, NAT #### [facility] [address] [place] [address] Dr. Keturah Fisher NEUT # 5.3 103/ul Normal 1.4-6.5 [facility] Comment on above: Performed By: #### L IPA, CMP, CRP, NAT #### [facility] [address] [address] [address] Ketruah Fisher Neutrophils/100 WBC (Bld) 55.9 % Normal 43.0-75.0 [facility] Comment on above: Performed By: #### L IPA, CMP, CRP, NAT #### [facility] [address] [address] [address] Keturah Fisher Platelet mean volume (Bld) [Entitic vol] 9.8 fL Normal 9.5-13.5 [facility] Comment on above: Performed By: #### L IPA, CMP, CRP, NAT #### [facility] [address] [place] [address] Dr. Keturah Fisher PLT 229 103/ul Normal 150-450 [facility] Comment on above: Performed By: #### L IPA, CMP, CRP, NAT #### [facility] [address] [place] [address] Dr. Keturah Fisher RBC 4.33 106/ul Normal 4.20-5.40 [facility] Comment on above: Performed By: #### L IPA, CMP, CRP, NAT #### [facility] [address] [place] [address] Dr. Keturah Fisher WBC 9.5 103/ul Normal 4.0-11.0 [facility] Comment on above: Performed By: #### L IPA, CMP, CRP, NAT #### [facility] [address] [place] [address] Dr. Keturah Fisher LIPASEon 08-26-2021 Lipase [Catalytic activity/Vol] 146.0 U/L Normal 73.0-393.0 [facility] Comment on above: Performed By: #### A MY, CMP, LIPA ####[facility] [address] [place] [address]Dr. Keturah Fisher PROF 14(COMP METB)on 022 Albumin [Mass/Vol] 3.5 g/dL Normal 3.4-5.0 [facility] Comment on above: Performed By: #### A MY, CMP, LIPA ####[facility] [address] [place] [address]Dr. Elisaeli Fisher Albumin/Globulin [Mass ratio] 1.1 {ratio} Normal [facility] Comment on above: Performed By: #### A MY, CMP, LIPA ####[facility] [address] [place] [address]Dr. Keturah Fisher ALP [Catalytic activity/Vol] 139 U/L Critically high 46-116 [facility] Comment on above: Performed By: #### A MY, CMP, LIPA ####[facility] [address] [place] [address]Dr. Keturah Fisher ALT [Catalytic activity/Vol] 21 U/L Normal 14-59 [facility] Comment on above: Performed By: #### A MY, CMP, LIPA ####[facility] [address] [place] [address]Dr. Keturah Fisher Anion gap [Moles/Vol] 11.4 mmol/L Normal [facility] Comment on above: Performed By: #### A MY, CMP, LIPA ####[facility] [address] [place] [address]Dr. Keturah Fisher AST [Catalytic activity/Vol] 21 U/L Normal 15-37 [facility] Comment on above: Performed By: #### A MY, CMP, LIPA ####[facility] [address] [place] [address]Dr. Keturah Fisher Bilirubin [Mass/Vol] 0.2 mg/dL Normal 0.2-1.0 [facility] Comment on above: Performed By: #### A MY, CMP, LIPA ####[facility] [address] [place] [address]Dr. Keturah Fisher Calcium [Mass/Vol] 9.2 mg/dL Normal 8.5-10.1 [facility] Comment on above: Performed By: #### A MY, CMP, LIPA ####[facility] [address] [place] [address]Dr. Keturah Fisher Chloride [Moles/Vol] 107 mmol/L Normal 98-107 [facility] Comment on above: Performed By: #### A MY, CMP, LIPA ####[facility] [address] [place] [address]Dr. Keturah Fisher CO2 [Moles/Vol] 27.9 mmol/L Normal 21.0-32.0 [facility] Comment on above: Performed By: #### A MY, CMP, LIPA ####[facility] [address] [place] [address]Dr. Keturah Phillip Creatinine [Mass/Vol] 0.84 mg/dL Normal 0.55-1.02 [facility] Comment on above: Performed By: #### A MY, CMP, LIPA ####[facility] [address] [place] [address]Dr. Ketruah Phillip EGFR-AF BANGLADESHI >60 Normal >=60 [facility] Comment on above: Performed By: #### A MY, CMP, LIPA ####[facility] [address] [place] [address]Dr. Keturah Phillip EGFR-NON AF BANGLADESHI >60 Normal >=60 [facility] Comment on above: Performed By: #### A MY, CMP, LIPA ####[facility] [address] [place] [address]Dr. Keturah Phillip Globulin (S) [Mass/Vol] 3.3 g/dL Normal [facility] Comment on above: Performed By: #### A MY, CMP, LIPA ####[facility] [address] [place] [address]Dr. Keturah Phillip Glucose [Mass/Vol] 106 mg/dL Normal 74-106 [facility] Comment on above: Performed By: #### A MY, CMP, LIPA ####[facility] [address] [place] [address]Dr. Keturah Fisher Potassium [Moles/Vol] 4.3 mmol/L Normal 3.5-5.1 [facility] Comment on above: Performed By: #### A MY, CMP, LIPA ####[facility] [address] [place] [address]Dr. Keturah Fisher Protein [Mass/Vol] 6.8 g/dL Normal 6.4-8.2 [facility] Comment on above: Performed By: #### A MY, CMP, LIPA ####[facility] [address] [place], [place] [address]Qv. Keturah Fisher Sodium [Moles/Vol] 142 mmol/L Normal 136-145 [facility] Comment on above: Performed By: #### A MY, CMP, LIPA ####[facility] [address] [place], [place] [address]Ff. Keturah Fisher Urea nitrogen [Mass/Vol] 11.0 mg/dL Normal 7.0-18.0 [facility] Comment on above: Performed By: #### A MY, CMP, LIPA ####[facility] [address] [place] [id number]. Keturah Fisher Urea nitrogen/Creatinine [Mass ratio] 13.1 mg/mg Normal [facility] Comment on above: Performed By: #### A MY, CMP, LIPA ####[facility] [address] [place] [id number]. Keturah Fisher XR ABD FLAT UP_PA Jorje [...] MILADIS BARRERA Date: 2021-08-26 04:59 Normal [facility] AMYLASEon 08-22-2021 Amylase [Catalytic activity/Vol] 155 U/L Critically high 25-115 [facility] Comment on above: Performed By: #### C MP, NAT, LIPA #### [facility] [address] [place] [address] Dr. Keturah Fisher CBC AUTO DIFFon 08-22-2021 BASO # 0.1 103/ul Normal 0.0-0.1 [facility] Comment on above: Performed By: #### L IPA, CMP, CRP, NAT #### [facility] [address] [place] [address] Dr. Keturah Fisher Basophils/100 WBC (Bld) 0.7 % Normal 0.2-2.0 [facility] Comment on above: Performed By: #### L IPA, CMP, CRP, NAT #### [facility] [address] [place] [address] Dr. Keturah Fisher EO # 0.1 103/ul Normal 0.0-0.7 [facility] Comment on above: Performed By: #### L IPA, CMP, CRP, NAT #### [facility] [address] [place] [address] Dr. Keturah Fisher Eosinophils/100 WBC (Bld) 0.7 % Critically low 0.9-7.0 [facility] Comment on above: Performed By: #### L IPA, CMP, CRP, NAT #### [facility] [address] [place] [address] Dr. Keturah Fisher Erythrocyte distribution width (RBC) [Ratio] 13.2 % Normal 11.0-15.0 [facility] Comment on above: Performed By: #### L IPA, CMP, CRP, NAT #### [facility] [address] [place] [address] Dr. Keturah Fisher Hematocrit (Bld) [Volume fraction] 41.1 % Normal 36.0-48.0 [facility] Comment on above: Performed By: #### L IPA, CMP, CRP, NAT #### [facility] [address] [place] [address] Dr. Keturah Fisher Hemoglobin (Bld) [Mass/Vol] 13.8 g/dL Normal 12.0-16.0 [facility] Comment on above: Performed By: #### L IPA, CMP, CRP, NAT #### [facility] [address] [place] [address] Dr. Keturah Fisher IG # 0.03 10e3/ul Normal 0.00-0.03 [facility] Comment on above: Performed By: #### L IPA, CMP, CRP, NAT #### [facility] [address] [place] [address] Dr. Keturah Fisher IG % 0.2 % Normal 0.0-0.5 [facility] Comment on above: Performed By: #### L IPA, CMP, CRP, NAT #### [facility] [address] [place] [address] Dr. Keturah Fisher LYMPH # 2.6 103/ul Normal 1.2-3.8 [facility] Comment on above: Performed By: #### L IPA, CMP, CRP, NAT #### [facility] [address] [place] [address] Dr. Keturah Fisher Lymphocytes/100 WBC (Bld) 21.4 % Normal 20.5-60.0 [facility] Comment on above: Performed By: #### L IPA, CMP, CRP, NAT #### [facility] [address] [place] [address] Dr. Keturah Fisher MANUAL DIFF REQ NO Normal [facility] Comment on above: Performed By: #### L IPA, CMP, CRP, NAT #### [facility] [address] [place] [address] Dr. Keturah Fisher MCH (RBC) [Entitic mass] 32.2 pg Normal 26.7-34.0 [facility] Comment on above: Performed By: #### L IPA, CMP, CRP, NAT #### [facility] [address] [place] [address] Dr. Keturah Fisher MCHC (RBC) [Mass/Vol] 33.6 g/dL Normal 29.9-35.2 [facility] Comment on above: Performed By: #### L IPA, CMP, CRP, NAT #### [facility] [address] [place] [address] Dr. Keturah Fisher MCV (RBC) [Entitic vol] 95.8 fL Normal 81.0-99.0 [facility] Comment on above: Performed By: #### L IPA, CMP, CRP, NAT #### [facility] [address] [place] [address] Dr. Keturah Fisher MONO # 0.9 103/ul Critically high 0.3-0.8 [facility] Comment on above: Performed By: #### L IPA, CMP, CRP, NAT #### [facility] [address] [place] [address] Dr. Keturah Fisher Monocytes/100 WBC (Bld) 7.6 % Normal 1.7-12.0 [facility] Comment on above: Performed By: #### L IPA, CMP, CRP, NAT #### [facility] [address] [place] [address] Dr. Keturah Fisher NEUT # 8.5 103/ul Critically high 1.4-6.5 [facility] Comment on above: Performed By: #### L IPA, CMP, CRP, NAT #### [facility] [address] [place] [address] Dr. Keturah Fisher Neutrophils/100 WBC (Bld) 69.4 % Normal 43.0-75.0 [facility] Comment on above: Performed By: #### L IPA, CMP, CRP, NAT #### [facility] [address] [place] [address] Dr. Keturah Fisher Platelet mean volume (Bld) [Entitic vol] 9.5 fL Normal 9.5-13.5 [facility] Comment on above: Performed By: #### L IPA, CMP, CRP, NAT #### [facility] [address] [place] [address] Dr. Keturah Fisher PLT 261 103/ul Normal 150-450 [facility] Comment on above: Performed By: #### L IPA, CMP, CRP, NAT #### [facility] [address] [place] [address] Dr. Keturah Fisher RBC 4.29 106/ul Normal 4.20-5.40 [facility] Comment on above: Performed By: #### L IPA, CMP, CRP, NAT #### [facility] [address] [place] [address] Dr. Keturah Fisher WBC 12.2 103/ul Critically high 4.0-11.0 [facility] Comment on above: Performed By: #### L IPA, CMP, CRP, NAT #### [facility] [address] [place] [address] Dr. Keturah Fisher LIPASEon 08-22-2021 Lipase [Catalytic activity/Vol] 419.0 U/L Critically high 73.0-393.0 [facility] Comment on above: Performed By: #### C MP, NAT, LIPA #### [facility] [address] [place] [address] Dr. Keturah Fisher PROF 14(COMP METB)on 022 Albumin [Mass/Vol] 3.9 g/dL Normal 3.4-5.0 [facility] Comment on above: Performed By: #### C MP, NAT, LIPA #### [facility] [address] [place] [address] Dr. Keturah Fisher Albumin/Globulin [Mass ratio] 1.2 {ratio} Normal [facility] Comment on above: Performed By: #### C MP, NAT, LIPA #### [facility] [address] [place] [address] Dr. Keturah Fisher ALP [Catalytic activity/Vol] 137 U/L Critically high 46-116 [facility] Comment on above: Performed By: #### C MP, NAT, LIPA #### [facility] [address] [place] [address] Dr. Keturah Fisher ALT [Catalytic activity/Vol] 22 U/L Normal 14-59 [facility] Comment on above: Performed By: #### C MP, NAT, LIPA #### [facility] [address] [place] [address] Dr. Keturah Fisher Anion gap [Moles/Vol] 12.9 mmol/L Normal [facility] Comment on above: Performed By: #### C LIZY NAT, LIPA #### [facility] [address] [address] [address] Keturah Fisher AST [Catalytic activity/Vol] 20 U/L Normal 15-37 [facility] Comment on above: Performed By: #### C MP NAT, LIPA #### [facility] [address] [place] [address] Dr. Keturah Fisher Bilirubin [Mass/Vol] 0.2 mg/dL Normal 0.2-1.0 [facility] Comment on above: Performed By: #### C LIZY NAT, LIPA #### [facility] [address] [place] [address] Dr. Keturah Fisher Calcium [Mass/Vol] 9.5 mg/dL Normal 8.5-10.1 [facility] Comment on above: Performed By: #### C LIZY NAT, LIPA #### [facility] [address] [place] [address] Dr. Keturah Fisher Chloride [Moles/Vol] 104 mmol/L Normal 98-107 [facility] Comment on above: Performed By: #### C LIYZ NAT, LIPA #### [facility] [address] [place] [address] Dr. Keturah Fisher CO2 [Moles/Vol] 23.7 mmol/L Normal 21.0-32.0 [facility] Comment on above: Performed By: #### C LIZY NAT, LIPA #### [facility] [address] [place] [address] Dr. Keturah Fisher Creatinine [Mass/Vol] 0.85 mg/dL Normal 0.55-1.02 [facility] Comment on above: Performed By: #### C LIZY NAT, LIPA #### [facility] [address] [place] [address] Dr. Keturah Fisher EGFR-AF BANGLADESHI >60 Normal >=60 [facility] Comment on above: Performed By: #### C LIZY NAT, LIPA #### [facility] [address] [place] [address] Dr. Keturah Fisher EGFR-NON AF BANGLADESHI >60 Normal >=60 [facility] Comment on above: Performed By: #### C NAT MEDEL LIPA #### [facility] [address] [address] [address] Keturah Fisher Globulin (S) [Mass/Vol] 3.3 g/dL Normal [facility] Comment on above: Performed By: #### C NAT MEDEL LIPA #### [facility] [address] [address] [address] Keturah Fisher Glucose [Mass/Vol] 130 mg/dL Critically high 74-106 T [facility] Comment on above: Performed By: #### C NAT EMDEL LIPA #### [facility] [address] [place] [address] Dr. Keturah Fisher Potassium [Moles/Vol] 3.6 mmol/L Normal 3.5-5.1 [facility] Comment on above: Performed By: #### C NAT MEDEL LIPA #### [facility] [address] [place] [address] Dr. Keturah Fisher Protein [Mass/Vol] 7.2 g/dL Normal 6.4-8.2 [facility] Comment on above: Performed By: #### C NAT MEDEL LIPA #### [facility] [address] [place] [address] Dr. Keturah Fisher Sodium [Moles/Vol] 137 mmol/L Normal 136-145 [facility] Comment on above: Performed By: #### C NAT MEDEL LIPA #### [facility] [address] [place] [address] Dr. Keturah Fisher Urea nitrogen [Mass/Vol] 9.0 mg/dL Normal 7.0-18.0 [facility] Comment on above: Performed By: #### C NAT MEDEL LIPA #### [facility] [address] [address] [address] Keturah Fisher Urea nitrogen/Creatinine [Mass ratio] 10.6 mg/mg Normal [facility] Comment on above: Performed By: #### C NAT MEDEL LIPA #### [facility] [address] [place], [place] [address] Dr. Keturah Fisher XR ABD FLAT UP_PA [...] TRI HANSON Date: 2021-08-22 14:54 Normal [facility] CBC AUTO DIFFon 08-13-2021 BASO # 0.1 103/ul Normal 0.0-0.1 [facility] Comment on above: Performed By: #### C BC ####[facility] [address] [address]Dr. Keturah Fisher Basophils/100 WBC (Bld) 0.6 % Normal 0.2-2.0 [facility] Comment on above: Performed By: #### C BC ####[facility] [address] [address] [address]DrGopal Fisher EO # 0.1 103/ul Normal 0.0-0.7 [facility] Comment on above: Performed By: #### C BC ####[facility] [address] [address]Dr. Keturah Fisher Eosinophils/100 WBC (Bld) 1.1 % Normal 0.9-7.0 [facility] Comment on above: Performed By: #### C BC ####[facility] [address] [address]DrGopal Fisher Erythrocyte distribution width (RBC) [Ratio] 12.6 % Normal 11.0-15.0 [facility] Comment on above: Performed By: #### C BC ####[facility] [address] [address]Dr. Keturah Fisher Hematocrit (Bld) [Volume fraction] 42.3 % Normal 36.0-48.0 [facility] Comment on above: Performed By: #### C BC ####[facility] [address] [address] [address]Dr. Keturah Fisher Hemoglobin (Bld) [Mass/Vol] 14.1 g/dL Normal 12.0-16.0 [facility] Comment on above: Performed By: #### C BC ####[facility] [address] [address] [address]Dr. Elisaeli Phillip IG # 0.03 10e3/ul Normal 0.00-0.03 [facility] Comment on above: Performed By: #### C BC ####[facility] [address] [place], [place] [address]Dr. Keturah Fisher IG % 0.3 % Normal 0.0-0.5 [facility] Comment on above: Performed By: #### C BC ####[facility] [address] [address] [address]Dr. Elisaeli Fisher LYMPH # 2.4 103/ul Normal 1.2-3.8 [facility] Comment on above: Performed By: #### C BC ####[facility] [address] [place], [place] [address]Dr. Elisaeli Fisher Lymphocytes/100 WBC (Bld) 22.3 % Normal 20.5-60.0 [facility] Comment on above: Performed By: #### C BC ####[facility] [address] [address]Dr. Elisaeli Fisher MANUAL DIFF REQ NO Normal [facility] Comment on above: Performed By: #### C BC ####[facility] [address] [address]Dr. Keturah Phillip MCH (RBC) [Entitic mass] 32.5 pg Normal 26.7-34.0 [facility] Comment on above: Performed By: #### C BC ####[facility] [address] [place], [place] [address]Dr. Keturah Fisher MCHC (RBC) [Mass/Vol] 33.3 g/dL Normal 29.9-35.2 [facility] Comment on above: Performed By: #### C BC ####[facility] [address] [id number]. Keturah Fisher MCV (RBC) [Entitic vol] 97.5 fL Normal 81.0-99.0 [facility] Comment on above: Performed By: #### C BC ####[facility] [address] [id number]. Keturah Fisher MONO # 1.0 103/ul Critically high 0.3-0.8 [facility] Comment on above: Performed By: #### C BC ####[facility] [address] [address]Dr. Elisaeli Fisher Monocytes/100 WBC (Bld) 8.7 % Normal 1.7-12.0 [facility] Comment on above: Performed By: #### C BC ####[facility] [address] [address]Dr. Keturah Fisher NEUT # 7.3 103/ul Critically high 1.4-6.5 [facility] Comment on above: Performed By: #### C BC ####[facility] [address] [address]Dr. Keturah Fisher Neutrophils/100 WBC (Bld) 67.0 % Normal 43.0-75.0 [facility] Comment on above: Performed By: #### C BC ####[facility] [address] [id number]. Keturah Phillip Platelet mean volume (Bld) [Entitic vol] 9.5 fL Normal 9.5-13.5 [facility] Comment on above: Performed By: #### C BC ####[facility] [address] [id number]. Keturah Phillip PLT 272 103/ul Normal 150-450 [facility] Comment on above: Performed By: #### C BC ####[facility] [address] [place], [place] [address]Za. Keturah Fisher RBC 4.34 106/ul Normal 4.20-5.40 [facility] Comment on above: Performed By: #### C BC ####[facility] [address] [place], [place] [address]GcGopal Fisher WBC 10.9 103/ul Normal 4.0-11.0 [facility] Comment on above: Performed By: #### C BC ####[facility] [address] [place], [place] [address]M[address]. [address] CT ABD/PELV W CONon 08-14-19 [...] HEBERT MCPHERSON Date: 2021-08-13 17:14 Normal [facility] ER URINE PROFILEon 2 Bilirubin Ql (U) Negative Normal NEGATIVE [facility] Comment on above: Performed By: #### C BC #### [facility] [address] [place] [address] Dr. Keturah Fisher Clarity (U) CLEAR Normal CLEAR [facility] Comment on above: Performed By: #### C BC #### [facility] [address] [place] [address] Dr. Keturah Fisher Color (U) LT. YELLOW Normal YELLOW [facility] Comment on above: Performed By: #### C BC #### [facility] [address] [place] [address] Dr. Keturah PATIÑOGarfield A micrscopic examination will be performed if indicated. Normal [facility] Comment on above: Performed By: #### C BC #### [facility] [address] [place] [address] Dr. Ketuarh Fisher Glucose Ql (U) Negative Normal NEGATIVE [facility] Comment on above: Performed By: #### C BC #### [facility] [address] [place] [address] Dr. Keturah Fisher Hemoglobin Ql (U) Negative Normal NEGATIVE [facility] Comment on above: Performed By: #### C BC #### [facility] [address] [place] [address] Dr. Keturah Fisher Ketones Ql (U) Negative Normal NEGATIVE [facility] Comment on above: Performed By: #### C BC #### [facility] [address] [place] [address] Dr. Keturah Fisher LEUKOCYTES Negative Normal NEGATIVE [facility] Comment on above: Performed By: #### C BC #### [facility] [address] [place] [address] Dr. Keturah Fisher Nitrite Ql (U) Negative Normal NEGATIVE [facility] Comment on above: Performed By: #### C BC #### [facility] [address] [place] [address] Dr. Keturah Fisher pH (U) 5.5 [pH] Normal 5-9 [facility] Comment on above: Performed By: #### C BC #### [facility] [address] [place] [address] Dr. Keturah Fisher SPEC GRAVITY 1.010 Normal 1.005-<=1.[address] [place] [address] Comment on above: Performed By: #### C BC #### [facility] [address] [place] [address] Dr. Keturah Fisher UA PROTEIN Negative Normal NEGATIVE/ TRACE [facility] Comment on above: Performed By: #### C BC #### [facility] [address] [place] [address] Dr. Keturah Fisher UR MICRO IND NOT INDICATED Normal [facility] Comment on above: Performed By: #### C BC #### [facility] [address] [place] [address] Dr. Keturah Fisher Urobilinogen Qn (U) 0.2 {Marizol'U}/dL Normal 0.2 - 1. 0 [facility] Comment on above: Performed By: #### C BC #### [facility] [address] [place] [address] Dr. Keturah Fisher LIPASEon 08-13-2021 Lipase [Catalytic activity/Vol] 217.0 U/L Normal 73.0-393.0 [facility] Comment on above: Performed By: #### C BC #### [facility] [address] [place] [address] Dr. Keturah Fisher PROF 14(COMP METB)on 022 Albumin [Mass/Vol] 3.9 g/dL Normal 3.4-5.0 [facility] Comment on above: Performed By: #### C BC #### [facility] [address] [place] [address] Dr. Keturah Fisher Albumin/Globulin [Mass ratio] 1.1 {ratio} Normal [facility] Comment on above: Performed By: #### C BC #### [facility] [address] [place] [address] Dr. Keturah Fisher ALP [Catalytic activity/Vol] 140 U/L Critically high 46-116 [facility] Comment on above: Performed By: #### C BC #### [facility] [address] [place] [address] Dr. Keturah Fisher ALT [Catalytic activity/Vol] 24 U/L Normal 14-59 [facility] Comment on above: Performed By: #### C BC #### [facility] [address] [place] [address] Dr. Keturah Fisher Anion gap [Moles/Vol] 11.7 mmol/L Normal [facility] Comment on above: Performed By: #### C BC #### [facility] [address] [place] [address] Dr. Keturah Fisher AST [Catalytic activity/Vol] 19 U/L Normal 15-37 [facility] Comment on above: Performed By: #### C BC #### [facility] [address] [place] [address] Dr. Keturah Fisher Bilirubin [Mass/Vol] 0.2 mg/dL Normal 0.2-1.0 [facility] Comment on above: Performed By: #### C BC #### [facility] [address] [place] [address] Dr. Keturah Fisher Calcium [Mass/Vol] 9.9 mg/dL Normal 8.5-10.1 [facility] Comment on above: Performed By: #### C BC #### [facility] [address] [place] [address] Dr. Keturah Fisher Chloride [Moles/Vol] 105 mmol/L Normal 98-107 [facility] Comment on above: Performed By: #### C BC #### [facility] [address] [address] [address] Keturah Fisher CO2 [Moles/Vol] 29.1 mmol/L Normal 21.0-32.0 [facility] Comment on above: Performed By: #### C BC #### [facility] [address] [address] [address] Keturah Fisher Creatinine [Mass/Vol] 0.81 mg/dL Normal 0.55-1.02 [facility] Comment on above: Performed By: #### C BC #### [facility] [address] [place] [address] Dr. Keturah Fisher EGFR-AF BANGLADESHI >60 Normal >=60 [facility] Comment on above: Performed By: #### C BC #### [facility] [address] [place] [address] Dr. Keturah Fisher EGFR-NON AF BANGLADESHI >60 Normal >=60 [facility] Comment on above: Performed By: #### C BC #### [facility] [address] [place] [address] Dr. Keturah Fisher Globulin (S) [Mass/Vol] 3.4 g/dL Normal [facility] Comment on above: Performed By: #### C BC #### [facility] [address] [place] [address] Dr. eKturah Fisher Glucose [Mass/Vol] 87 mg/dL Normal 74-106 [facility] Comment on above: Performed By: #### C BC #### [facility] [address] [place] [address] Dr. Keturah Fisher Potassium [Moles/Vol] 3.8 mmol/L Normal 3.5-5.1 [facility] Comment on above: Performed By: #### C BC #### [facility] [address] [place] [address] Dr. Keturah Fisher Protein [Mass/Vol] 7.3 g/dL Normal 6.4-8.2 [facility] Comment on above: Performed By: #### C BC #### [facility] [address] [place], [place] [address] Dr. Keturah Fisher Sodium [Moles/Vol] 142 mmol/L Normal 136-145 [facility] Comment on above: Performed By: #### C BC #### [facility] [address] [place], [place] [address] Dr. Keturah Fisher Urea nitrogen [Mass/Vol] 11.0 mg/dL Normal 7.0-18.0 [facility] Comment on above: Performed By: #### C BC #### [facility] [address] [place], [place] [address] Dr. Keturah Fisher Urea nitrogen/Creatinine [Mass ratio] 13.6 mg/mg Normal [facility] Comment on above: Performed By: #### C BC #### [facility] [address] [place], [place] [address] Dr. Keturah Fisher Albumin [Mass/volume] in Ser um or PlasmaOrdered By: Keaton Barnard on 08-11-2021 Albumin [Mass/Vol] 3.4 g/dL 3.2-5.5 [facility] Basophils Auto (Bld) [#/Vol] Ordered By: Keaton Barnard on 08-11-2021 Basophils (Bld) [#/Vol] 0.1 10*3/uL 0.0-0.2 [facility] Basophils/100 WBC Auto (Bld) Ordered By: Keaton Barnard on 08-11-2021 Basophils/100 WBC (Bld) 0.9 % . [facility] Bilirubin Test strip Ql (U)O rdered By: Keaton Barnard on 08-11-2021 Bilirubin Ql (U) Negative Negative [facility] Blood hemoglobin measurement (mass/volume)Ordered By: Keaton Barnard on 08-11-2021 Hemoglobin (Bld) [Mass/Vol] 14.1 g/dL 11.8-15.4 [facility] Blood leukocytes automated c ount (number/volume)Ordered By: Keaton Barnard on 08-11-2021 WBC (Bld) [#/Vol] 9.7 10*3/uL 4.5-11.0 [facility] Color Auto (U)Ordered By: Herminia Barnard on 08-11-2021 Color (U) Yellow Yellow [facility] Creatinine and Glomerular fi ltration rate.predicted panel (S/P/Bld)Ordered By: Keaton Barnard on 08-11-2021 Creatinine [Mass/Vol] 0.95 mg/dL 0.44-1.03 [facility] Direct bilirubin measurement Ordered By: Keaton Barnard on 08-11-2021 Bilirubin.direct [Mass/Vol] mg/dL 0.0-0.4 [facility] Eosinophils Auto (Bld) [#/Vo l]Ordered By: Keaton Barnard on 08-11-2021 Eosinophils (Bld) [#/Vol] 0.1 10*3/uL 0.0-0.45 [facility] Eosinophils/100 WBC Auto (Bl d)Ordered By: Keaton Barnard on 08-11-2021 Eosinophils/100 WBC (Bld) 1.3 % . [facility] Erythrocyte distribution wid th Auto (RBC) [Ratio]Ordered By: Keaton Barnard on 08-11-2021 Erythrocyte distribution width (RBC) [Ratio] 13.2 % 11.9-15.3 [facility] Estimated glomerular filtrat ion rate (GFR) non- AmericanOrdered By: Keaton Barnard on 08-11-2021 GFR/1.73 sq M.predicted among non-blacks MDRD (S/P/Bld) [Vol rate/Area] > 60 mL/Min [facility] Globulin Calc (S) [Mass/Vol] Ordered By: Keaton Barnard on 08-11-2021 Globulin (S) [Mass/Vol] 2.6 g/dL [facility] Hematocrit Auto (Bld) [Volum e fraction]Ordered By: Keaton Barnard on 08-11-2021 Hematocrit (Bld) [Volume fraction] 42.1 % 34.0-46.4 [facility] Ketones Auto test strip (U) [Mass/Vol]Ordered By: Keaton Barnard on 08-11-2021 Ketones (U) [Mass/Vol] Negative Negative [facility] and C hemistry - challengeOrdered By: Keaton Barnard on 08-11-2021 Lipase [Catalytic activity/Vol] 89.0 U/L 22-51 [facility] - CoagulationOrde red By: Keaton Barnard on 08-11-2021 PT Coag (PPP) [Time] 12.5 s 9.0-12.9 [facility] - Hematology and Cell countsOrdered By: Keaton Barnard on 08-11-2021 Nucleated RBC/100 WBC (Bld) [Ratio] 0.1 % 0-0.5 [facility] Lymphocytes Auto (Bld) [#/Vo l]Ordered By: Keaton Barnard on 08-11-2021 Lymphocytes (Bld) [#/Vol] 2.5 10*3/uL 1.00-4.8 [facility] Lymphocytes/100 WBC Auto (Bl d)Ordered By: Keaton Barnard on 08-11-2021 Lymphocytes/100 WBC (Bld) 25.8 % . [facility] MCH Auto (RBC) [Entitic mass ]Ordered By: Keaton Barnard on 08-11-2021 MCH (RBC) [Entitic mass] 32.4 pg 24.7-34.3 [facility] MCHC Auto (RBC) [Mass/Vol]Or dered By: Keaton Barnard on 08-11-2021 MCHC (RBC) [Mass/Vol] 33.4 g/dL 32.0-35.0 [facility] MCV Auto (RBC) [Entitic vol] Ordered By: Keaton Barnard on 08-11-2021 MCV (RBC) [Entitic vol] 96.8 fL 80-100 [facility] Monocytes Auto (Bld) [#/Vol] Ordered By: Keaton Barnard on 08-11-2021 Monocytes (Bld) [#/Vol] 0.8 10*3/uL 0.0-0.8 [facility] Monocytes/100 WBC Auto (Bld) Ordered By: Keaton Barnard on 08-11-2021 Monocytes/100 WBC (Bld) 8.7 % . [facility] Neutrophils Auto (Bld) [#/Vo l]Ordered By: Keaton Barnard on 08-11-2021 Neutrophils (Bld) [#/Vol] 6.1 10*3/uL 1.8-7.7 [facility] Neutrophils/100 WBC Auto (Bl d)Ordered By: Keaton Barnard on 08-11-2021 Neutrophils/100 WBC (Bld) 63.3 % . [facility] Nitrite Test strip Ql (U)Ord ered By: Keaton Barnard on 08-11-2021 Nitrite Ql (U) Negative Negative [facility] No Panel InformationOrdered By: Keaton Barnard on 08-11-2021 Estimated GFR () > 60 mL/Min [facility] Comment on above: GFR estimated refere nce range: According to KDOQI guidelines, <60 ml/min/1.73m2 is sufficient to diagnose a patient with chronic kidney disease. Pharmacy Creatinine Clearance (Chem 62.33 [facility] Platelet mean volume Auto (B ld) [Entitic vol]Ordered By: Keaton Barnard on 08-11-2021 Platelet mean volume (Bld) [Entitic vol] 8.0 fL 6.3-10.7 [facility] Platelet poor plasma interna tional normalized ratio (INR) by coagulation assay (relatOrdered By: Keaton Barnard on 08-11-2021 INR Coag (PPP) [Relative time] 1.1 {INR} [facility] Comment on above: INR Therapeutic Rang e [...] 08-11-2021 Platelets (Bld) [#/Vol] 252 10*3/uL 150-450 [facility] Protein Auto test strip (U) [Mass/Vol]Ordered By: Keaton Barnard on 08-11-2021 Protein (U) [Mass/Vol] Negative Negative Fi [facility] Protein [Mass/volume] in Ser um or PlasmaOrdered By: Keaton Barnard on 08-11-2021 Protein [Mass/Vol] 6.0 g/dL 6.1-7.9 [facility] RBC Auto (Bld) [#/Vol]Ordere d By: Keaton Barnard on 08-11-2021 RBC (Bld) [#/Vol] 4.35 10*6/uL 3.60-5.00 [facility] Serum or plasma alanine hughes otransferase measurement without P-5'-P (enzymatic activiOrdered By: Keaton Barnard on 08-11-2021 ALT No additional P-5'-P [Catalytic activity/Vol] 12 U/L 10-60 [facility] Serum or plasma albumin/glob ulin mass ratioOrdered By: Keaton Barnard on 08-11-2021 Albumin/Globulin [Mass ratio] 1.3 {ratio} [facility] Serum or plasma alkaline jaqueline sphatase measurement (enzymatic activity/volume)Ordered By: Keaton Barnard on 08-11-2021 ALP [Catalytic activity/Vol] 98 U/L 32-92 [facility] Serum or plasma aspartate am inotransferase measurement (enzymatic activity/volume)Ordered By: Keaton Barnard on 08-11-2021 AST [Catalytic activity/Vol] 17 U/L 10-42 [facility] Serum or plasma calcium priscilla urement (mass/volume)Ordered By: Keaton Barnard on 08-11-2021 Calcium [Mass/Vol] 9.3 mg/dL 8.2-10.2 [facility] Serum or plasma chloride daron surement (moles/volume)Ordered By: Keaton Barnard on 08-11-2021 Chloride [Moles/Vol] 104 mmol/L 95-114 [facility] Serum or plasma glucose priscilla urement (mass/volume)Ordered By: Keaton Barnard on 08-11-2021 Glucose [Mass/Vol] 95 mg/dL 70-100 [facility] Comment on above: ADA recommended refe rence range Random Glucose Reference Range is dependent on time and content of last meal. Glucose of more than 200 mg/dL in a nonstressed, ambulatory subject supports the diagnosis of Diabetes Mellitus. Serum or plasma non-glucuron idated bilirubin measurement (mass/volume)Ordered By: Keaton Barnard on 08-11-2021 Bilirubin.indirect [Mass/Vol] TNP [facility] Comment on above: Test not performed Serum or plasma potassium me asurement (moles/volume)Ordered By: Keaton Barnard on 08-11-2021 Potassium [Moles/Vol] 3.8 mmol/L 3.5-5.1 [facility] Serum or plasma sodium measu rement (moles/volume)Ordered By: Keaton Barnard on 08-11-2021 Sodium [Moles/Vol] 138 mmol/L 136-146 [facility] Serum or plasma total biliru bin measurement (mass/volume)Ordered By: Keaton Barnard on 08-11-2021 Bilirubin [Mass/Vol] 0.3 mg/dL 0.3-1.2 [facility] Serum or plasma total carbon dioxide measurement (moles/volume)Ordered By: Keaton Barnard on 08-11-2021 CO2 [Moles/Vol] 24.8 mmol/L 22.0-30.0 [facility] Serum or plasma urea nitroge n measurement (mass/volume)Ordered By: Keaton Barnard on 08-11-2021 Urea nitrogen [Mass/Vol] 10 mg/dL 9-23 [facility] Specific gravity Auto test s trip (U) [Rel density]Ordered By: Keaton Barnard on 08-11-2021 Specific gravity (U) [Rel density] 1.028 1.001-1.030 [facility] Troponin I.cardiac [Mass/vol ume] in Serum or Plasma by High sensitivity methodOrdered By: Keaton Barnard on 08-11-2021 Troponin I.cardiac High sensitivity method [Mass/Vol] 3 pg/mL 0-15 [facility] Urine clarity by refractomet ry automatedOrdered By: Keaton Barnard on 08-11-2021 Clarity Refractometry automated (U) Clear Clear [facility] Urine glucose measurement by automated test strip (mass/volume)Ordered By: Keaton Barnard on 08-11-2021 Glucose Auto test strip (U) [Mass/Vol] Normal mg/dL Normal [facility] Urine hemoglobin detection b y automated test stripOrdered By: Keaton Barnard on 08-11-2021 Hemoglobin Auto test strip Ql (U) Negative Negative [facility] Urine leukocyte esterase det ection by automated test stripOrdered By: Keaton Barnard on 08-11-2021 Leukocyte esterase Auto test strip Ql (U) Negative Negative [facility] Urobilinogen Auto test strip (U) [Mass/Vol]Ordered By: Keaton Barnard on 08-11-2021 Urobilinogen (U) [Mass/Vol] Normal mg/dL Normal [facility] pH Auto test strip (U)Ordere d By: Keaton Barnard on 08-11-2021 pH (U) 5.0 [pH] 5.0-9.0 [facility] AMYLASEon 07-31-2021 Amylase [Catalytic activity/Vol] 158 U/L Critically high 25-115 [facility] Comment on above: Performed By: #### L IPA, CMP, CRP, NAT #### [facility] [address] [place], [place] [address] Dr. Keturah Fisher CBC AUTO DIFFon 07-31-2021 BASO # 0.1 103/ul Normal 0.0-0.1 [facility] Comment on above: Performed By: #### C BC ####[facility] [address] [address]Dr. Keturah Fisher Basophils/100 WBC (Bld) 0.7 % Normal 0.2-2.0 [facility] Comment on above: Performed By: #### C BC ####[facility] [address] [place] [address]Dr. Keturah Fisher EO # 0.1 103/ul Normal 0.0-0.7 [facility] Comment on above: Performed By: #### C BC ####[facility] [address] [place] [address]Dr. Keturah Fisher Eosinophils/100 WBC (Bld) 0.9 % Normal 0.9-7.0 [facility] Comment on above: Performed By: #### C BC ####[facility] [address] [place] [address]DrGopal Fisher Erythrocyte distribution width (RBC) [Ratio] 12.7 % Normal 11.0-15.0 [facility] Comment on above: Performed By: #### C BC ####[facility] [address] [place] [address]Dr. Keturah Fisher Hematocrit (Bld) [Volume fraction] 43.2 % Normal 36.0-48.0 [facility] Comment on above: Performed By: #### C BC ####[facility] [address] [place] [address]DrGopal Keturah Fisher Hemoglobin (Bld) [Mass/Vol] 14.5 g/dL Normal 12.0-16.0 [facility] Comment on above: Performed By: #### C BC ####[facility] [address] [place] [id number] Keturah Fisher IG # 0.04 10e3/ul Critically high 0.00-0.03 [facility] Comment on above: Performed By: #### C BC ####[facility] Xtnbpvgiar[address] [place], [place] [address]DrGopal Elisaeli Fisher IG % 0.4 % Normal 0.0-0.5 [facility] Comment on above: Performed By: #### C BC ####[facility] Qdywivrpxd[address] [place], [place] [address]DrGopal Elisaeli Fisher LYMPH # 2.8 103/ul Normal 1.2-3.8 [facility] Comment on above: Performed By: #### C BC ####[facility] Lfkfmhzzmz[address] [place], [place] [address]DrGopal Elisaeli Fisher Lymphocytes/100 WBC (Bld) 24.9 % Normal 20.5-60.0 [facility] Comment on above: Performed By: #### C BC ####[facility] Kbjwzwmosa[address] [place], [place] [address]DrGopal Elisaeli Fisher MANUAL DIFF REQ NO Normal [facility] Comment on above: Performed By: #### C BC ####[facility] Vyawnilvau[address] [place], [place] [address]DrGopal Fisher MCH (RBC) [Entitic mass] 32.7 pg Normal 26.7-34.0 [facility] Comment on above: Performed By: #### C BC ####[facility] Wxapqkcrep1430[address] [place], [place] [address]DrGopal Fisher MCHC (RBC) [Mass/Vol] 33.6 g/dL Normal 29.9-35.2 [facility] Comment on above: Performed By: #### C BC ####[facility] [address] [place] [address]DrGopal Fisher MCV (RBC) [Entitic vol] 97.5 fL Normal 81.0-99.0 [facility] Comment on above: Performed By: #### C BC ####[facility] Wpedxjekbz[address] [place], [place] [address]DrGopal Fisher MONO # 0.9 103/ul Critically high 0.3-0.8 [facility] Comment on above: Performed By: #### C BC ####[facility] Mnslndpjgv[address] [place], [place] [address]DrGopal Fisher Monocytes/100 WBC (Bld) 8.1 % Normal 1.7-12.0 [facility] Comment on above: Performed By: #### C BC ####[facility] Lrptcyugjb[address] [place], [place] [address]DrGopal Fisher NEUT # 7.3 103/ul Critically high 1.4-6.5 [facility] Comment on above: Performed By: #### C BC ####[facility] Cpiierdfft[address] [place], [place] [address]DrGopal Fisher Neutrophils/100 WBC (Bld) 65.0 % Normal 43.0-75.0 [facility] Comment on above: Performed By: #### C BC ####[facility] Ceqamnevng5076[address] [place], [place] [address]DrGopal Fisher Platelet mean volume (Bld) [Entitic vol] 10.0 fL Normal 9.5-13.5 [facility] Comment on above: Performed By: #### C BC ####[facility] Jjoyxifwfx[address] [place], [place] [address]DrGopal Fisher PLT 245 103/ul Normal 150-450 [facility] Comment on above: Performed By: #### C BC ####[facility] Weiwgauuen2260[address] [place], [place] [address]Dr. Keturah Fisher RBC 4.43 106/ul Normal 4.20-5.40 [facility] Comment on above: Performed By: #### C BC ####[facility] Y[address]ada[address] [place], [place] [address]LnDr. Keturah Fisher WBC 11.2 103/ul Critically high 4.0-11.0 [facility] Comment on above: Performed By: #### C BC ####[facility] Y[address]iqerg0138 [place], [place] [address]IuDr. Keturah Fisher LIPASEon 07-31-2021 Lipase [Catalytic activity/Vol] 439.0 U/L Critically high 73.0-393.0 [facility] Comment on above: Performed By: #### L IPA, CMP, CRP, NAT #### [facility] [address] [address] [address] Keturah Fisher PROF 14(COMP METB)on Albumin [Mass/Vol] 3.6 g/dL Normal 3.4-5.0 [facility] Comment on above: Performed By: #### L IPA, CMP, CRP, NAT #### [facility] [address] [address] [address] Keturah Fisher Albumin/Globulin [Mass ratio] 1.1 {ratio} Normal [facility] Comment on above: Performed By: #### L IPA, CMP, CRP, NAT #### [facility] [address] [address] [address] Keturah Fisher ALP [Catalytic activity/Vol] 119 U/L Critically high 46-116 [facility] Comment on above: Performed By: #### L IPA, CMP, CRP, NAT #### [facility] [address] [address] [address] Keturah Fisher ALT [Catalytic activity/Vol] 20 U/L Normal 14-59 [facility] Comment on above: Performed By: #### L IPA, CMP, CRP, NAT #### [facility] [address] [address] [address] Keturah Fisher Anion gap [Moles/Vol] 13.4 mmol/L Normal [facility] Comment on above: Performed By: #### L IPA, CMP, CRP, NAT #### [facility] [address] [address] [address] Keturah Fisher AST [Catalytic activity/Vol] 16 U/L Normal 15-37 [facility] Comment on above: Performed By: #### L IPA, CMP, CRP, NAT #### [facility] [address] [address] [address] Keturah Fisher Bilirubin [Mass/Vol] 0.1 mg/dL Critically low 0.2-1.0 [facility] Comment on above: Performed By: #### L IPA, CMP, CRP, NAT #### [facility] [address] [address] [address] Keturah Fisher Calcium [Mass/Vol] 8.9 mg/dL Normal 8.5-10.1 [facility] Comment on above: Performed By: #### L IPA, CMP, CRP, NAT #### [facility] [address] [address] [address] Keturah Fisher Chloride [Moles/Vol] 106 mmol/L Normal 98-107 [facility] Comment on above: Performed By: #### L IPA, CMP, CRP, NAT #### [facility] [address] [place] [address] Dr. Keturah Fisher CO2 [Moles/Vol] 25.4 mmol/L Normal 21.0-32.0 [facility] Comment on above: Performed By: #### L IPA, CMP, CRP, NAT #### [facility] [address] [address] [address] Keturah Fisher Creatinine [Mass/Vol] 0.73 mg/dL Normal 0.55-1.02 [facility] Comment on above: Performed By: #### L IPA, CMP, CRP, NAT #### [facility] [address] [place] [address] Dr. Keturah Fisher EGFR-AF BANGLADESHI >60 Normal >=60 [facility] Comment on above: Performed By: #### L IPA, CMP, CRP, NAT #### [facility] [address] [place] [address] Dr. Keturah Fisher EGFR-NON AF BANGLADESHI >60 Normal >=60 [facility] Comment on above: Performed By: #### L IPA, CMP, CRP, NAT #### [facility] [address] [address] [address] Keturah Fisher Globulin (S) [Mass/Vol] 3.2 g/dL Normal [facility] Comment on above: Performed By: #### L IPA, CMP, CRP, NAT #### [facility] [address] [address] [address] Keturah Fisher Glucose [Mass/Vol] 105 mg/dL Normal 74-106 [facility] Comment on above: Performed By: #### L IPA, CMP, CRP, NAT #### [facility] [address] [place] [address] Dr. Keturah Fisher Potassium [Moles/Vol] 3.8 mmol/L Normal 3.5-5.1 [facility] Comment on above: Performed By: #### L IPA, CMP, CRP, NAT #### [facility] [address] [place] [address] Dr. Keturah Fisher Protein [Mass/Vol] 6.8 g/dL Normal 6.4-8.2 [facility] Comment on above: Performed By: #### L IPA, CMP, CRP, NAT #### [facility] [address] [place] [address] Dr. Keturah Fisher Sodium [Moles/Vol] 141 mmol/L Normal 136-145 [facility] Comment on above: Performed By: #### L IPA, CMP, CRP, NAT #### [facility] [address] [place] [address] Dr. Keturah Fisher Urea nitrogen [Mass/Vol] 12.0 mg/dL Normal 7.0-18.0 [facility] Comment on above: Performed By: #### L IPA, CMP, CRP, NAT #### [facility] [address] [address] [address] Keturah Fisher Urea nitrogen/Creatinine [Mass ratio] 16.4 mg/mg Normal [facility] Comment on above: Performed By: #### L IPA, CMP, CRP, NAT #### [facility] [address] [address] [address] Keturah Fisher TROPONIN, HIGH SENSITIVITYon 07-31-2021 HSTROP 4.2 pg/mL Normal 4.0-51.3 [facility] Comment on above: Result Comment: CUT- OFF POINTS HAVE BEEN ESTABLISHED BASED ON THE FOURTH UNIVERSAL DEFINITIONS OF MYOCARDIAL INFARCTION. THE UPPER REFERENCE LIMIT (URL) OF TROPONIN, DEFINED THE 99TH PERCENTILE OF cTnI DISTRIBUTION IN A REFERENCE POPULATION, HAS BEEN CONFIRMED THE DECISION THRESHOLD FOR [place] DIAGNOSIS. Performed By: #### L IPA, CMP, CRP, NAT #### [facility] [address] [address] [address] Keturah Fisher AMYLASEon 07-19-2021 Amylase [Catalytic activity/Vol] 198 U/L Critically high 25-115 [facility] Comment on above: Performed By: #### A MY, LIPA, CMP ####[facility] [address] [place] [address]DrGopal Fisher CBC AUTO DIFFon 07-19-2021 BASO # 0.1 103/ul Normal 0.0-0.1 [facility] Comment on above: Performed By: #### C BC ####[facility] [address] [place] [address]DrGopal Fisher Basophils/100 WBC (Bld) 0.7 % Normal 0.2-2.0 [facility] Comment on above: Performed By: #### C BC ####[facility] Ek[address]whg[address] [place] [address]DrGopal Fisher EO # 0.1 103/ul Normal 0.0-0.7 [facility] Comment on above: Performed By: #### C BC ####[facility] [address] [place] [address]DrGopal Fisher Eosinophils/100 WBC (Bld) 1.0 % Normal 0.9-7.0 [facility] Comment on above: Performed By: #### C BC ####[facility] [address]knf[address] [place] [address]DrGopal Fisher Erythrocyte distribution width (RBC) [Ratio] 12.5 % Normal 11.0-15.0 [facility] Comment on above: Performed By: #### C BC ####[facility] [address] [place] [address]Dr. Keturah Fisher Hematocrit (Bld) [Volume fraction] 42.4 % Normal 36.0-48.0 [facility] Comment on above: Performed By: #### C BC ####[facility] Mjvmmjphfs[address] [place], [place] [address]Dr. Keturah Fisher Hemoglobin (Bld) [Mass/Vol] 14.2 g/dL Normal 12.0-16.0 [facility] Comment on above: Performed By: #### C BC ####[facility] Ovzexsbedn[address] [place], [place] [address]Dr. Keturah Fisher IG # 0.03 10e3/ul Normal 0.00-0.03 [facility] Comment on above: Performed By: #### C BC ####[facility] Qirpaldkfh[address] [place], [place] [address]Dr. Keturah Fisher IG % 0.3 % Normal 0.0-0.5 [facility] Comment on above: Performed By: #### C BC ####[facility] Fttvbpuzsq[address] [place], [place] [address]Dr. Keturah Fisher LYMPH # 3.0 103/ul Normal 1.2-3.8 [facility] Comment on above: Performed By: #### C BC ####[facility] Zvcslsvmnn069[address] [place], [place] [address]Dr. Keturah Fisher Lymphocytes/100 WBC (Bld) 29.5 % Normal 20.5-60.0 [facility] Comment on above: Performed By: #### C BC ####[facility] Kxdzfcrtve35[address] [place], [place] [address]Dr. Keturah Phillip MANUAL DIFF REQ NO Normal [facility] Comment on above: Performed By: #### C BC ####[facility] Wjzzzeelvr[address] [place], [place] [address]Dr. Keturah Phillip MCH (RBC) [Entitic mass] 32.8 pg Normal 26.7-34.0 [facility] Comment on above: Performed By: #### C BC ####[facility] M[address]xzmxdpn3[address] [place] [address]DrGopal Fisher MCHC (RBC) [Mass/Vol] 33.5 g/dL Normal 29.9-35.2 [facility] Comment on above: Performed By: #### C BC ####[facility] Kxtsmuuewi45[address] [place], [place] [address]DrGopal Fisher MCV (RBC) [Entitic vol] 97.9 fL Normal 81.0-99.0 [facility] Comment on above: Performed By: #### C BC ####[facility] Xbyqwpnvch[address] [place], [place] [address]DrGopal Fisher MONO # 1.0 103/ul Critically high 0.3-0.8 [facility] Comment on above: Performed By: #### C BC ####[facility] Kueaoxujxj[address] [place], [place] [address]DrGopal Fisher Monocytes/100 WBC (Bld) 9.3 % Normal 1.7-12.0 [facility] Comment on above: Performed By: #### C BC ####[facility] Cvcrbtqygr2[address] [place], [place] [address]DrGopal Fisher NEUT # 6.1 103/ul Normal 1.4-6.5 [facility] Comment on above: Performed By: #### C BC ####[facility] Tbratcuuaf25[address] [place], [place] [address]DrGopal Fisher Neutrophils/100 WBC (Bld) 59.2 % Normal 43.0-75.0 [facility] Comment on above: Performed By: #### C BC ####[facility] Xxabzglksr[address] [place], [place] [address]DrGopal Fisher Platelet mean volume (Bld) [Entitic vol] 9.8 fL Normal 9.5-13.5 [facility] Comment on above: Performed By: #### C BC ####[facility] Tsejjlpwit3[address] [place], [place] [address]Dr. Keturah Fisher PLT 249 103/ul Normal 150-450 [facility] Comment on above: Performed By: #### C BC ####[facility] L[address]lp[address] [place] [address]Dr. Keturah Fisher RBC 4.33 106/ul Normal 4.20-5.40 [facility] Comment on above: Performed By: #### C BC ####[facility] [address] [place] [address]Dr. Keturah Fisher WBC 10.2 103/ul Normal 4.0-11.0 [facility] Comment on above: Performed By: #### C BC ####[facility] [address]vgtlzird[address] [place] [address]Dr. Keturah Phillip LIPASEon 07-19-2021 Lipase [Catalytic activity/Vol] 554.0 U/L Critically high 73.0-393.0 [facility] Comment on above: Performed By: #### A MY, LIPA, CMP ####[facility] Vpoamgubno7[address] [place], [place] [address]Dr. Keturah Fisher PROF 14(COMP METB)on 022 Albumin [Mass/Vol] 4.0 g/dL Normal 3.4-5.0 [facility] Comment on above: Performed By: #### A MY, LIPA, CMP ####[facility] Zsehjqhdox98[address] [place], [place] [address]Dr. Keturah Fisher Albumin/Globulin [Mass ratio] 1.1 {ratio} Normal [facility] Comment on above: Performed By: #### A MY, LIPA, CMP ####[facility] [address]xzphj[address] [place] [address]Dr. Keturah Fisher ALP [Catalytic activity/Vol] 141 U/L Critically high 46-116 [facility] Comment on above: Performed By: #### A MY, LIPA, CMP ####[facility] G[address]zzpapw[address] [place] [address]Dr. Keturah Fisher ALT [Catalytic activity/Vol] 21 U/L Normal 14-59 [facility] Comment on above: Performed By: #### A MY, LIPA, CMP ####[facility] Zsgocsicwe[address] [place] [address]Dr. Keturah Fisher Anion gap [Moles/Vol] 10.3 mmol/L Normal [facility] Comment on above: Performed By: #### A MY, LIPA, CMP ####[facility] Qwwtwhfffn4[address] [place] [address]Dr. Keturah Fisher AST [Catalytic activity/Vol] 22 U/L Normal 15-37 [facility] Comment on above: Performed By: #### A MY, LIPA, CMP ####[facility] Lydrfihcfg[address] [place] [address]Dr. Keturah Fisher Bilirubin [Mass/Vol] 0.3 mg/dL Normal 0.2-1.0 [facility] Comment on above: Performed By: #### A MY, LIPA, CMP ####[facility] Uhddodbkbm[address] [place], [place] [address]Dr. Keturah Fisher Calcium [Mass/Vol] 9.9 mg/dL Normal 8.5-10.1 [facility] Comment on above: Performed By: #### A MY, LIPA, CMP ####[facility] Asnqrenlvz2[address] [place], [place] [address]Dr. Keturah Fisher Chloride [Moles/Vol] 103 mmol/L Normal 98-107 [facility] Comment on above: Performed By: #### A MY, LIPA, CMP ####[facility] Klkyaptecl8[address] [place], [place] [address]Dr. Keturah Fisher CO2 [Moles/Vol] 27.6 mmol/L Normal 21.0-32.0 [facility] Comment on above: Performed By: #### A MY, LIPA, CMP ####[facility] Zsskrgzopm25[address] [place], [place] [address]Dr. Keturah Fisher Creatinine [Mass/Vol] 0.93 mg/dL Normal 0.55-1.02 [facility] Comment on above: Performed By: #### A MY, LIPA, CMP ####[facility] Tkdjmixdzr[address] [place], [place] [address]Dr. Keturah Fisher EGFR-AF BANGLADESHI >60 Normal >=60 [facility] Comment on above: Performed By: #### A ROB BERNSTEIN, CMP ####[facility] [address] [place] [address]Dr. Keturah Fisher EGFR-NON AF BANGLADESHI >60 Normal >=60 [facility] Comment on above: Performed By: #### A ROB BERNSTEIN, CMP ####[facility] Ik[address]mxugpbs[address] [place] [address]Dr. Keturah Fisher Globulin (S) [Mass/Vol] 3.5 g/dL Normal [facility] Comment on above: Performed By: #### A ROB BERNSTEIN, CMP ####[facility] Mnwgskvuvd[address] [place], [place] [address]Dr. Keturah Fisher Glucose [Mass/Vol] 99 mg/dL Normal 74-106 [facility] Comment on above: Performed By: #### A ROB BERNSTEIN, CMP ####[facility] Syzadevbua[address] [place], [place] [address]Dr. Keutrah Fisher Potassium [Moles/Vol] 3.9 mmol/L Normal 3.5-5.1 [facility] Comment on above: Performed By: #### A ROB BERNSTEIN, CMP ####[facility] Dmbsvijpyk[address] [place], [place] [address]Dr. Keturah Fisher Protein [Mass/Vol] 7.5 g/dL Normal 6.4-8.2 [facility] Comment on above: Performed By: #### A ROB BERNSTEIN, CMP ####[facility] [address]nej[address] [place] [address]Dr. Keturah Fisher Sodium [Moles/Vol] 137 mmol/L Normal 136-145 [facility] Comment on above: Performed By: #### A ROB BERNSTEIN, CMP ####[facility] Abxuk[address]zfd[address] [place] [address]Dr. Keturah Fisher Urea nitrogen [Mass/Vol] 9.0 mg/dL Normal 7.0-18.0 [facility] Comment on above: Performed By: #### A ROB BERNSTEIN, CMP ####[facility] Ixkhcwryis5[address] [place], [place] [address]Dp. Keturah Fisher Urea nitrogen/Creatinine [Mass ratio] 9.7 mg/mg Normal [facility] Comment on above: Performed By: #### A ROB BERNSTEIN, CMP ####[facility] [address]ibtjc33[address] [place], [place] [address]Me. Keturah Fisher XR ABD FLAT UP_PA Jorje [...] LYNNE PERDOMO Date: 2021-07-19 16:57 Normal [facility] COVID Quick Testingon 2021 Result Positive [employer] Other ANES Marcial 11-13-2020 ANES POST HNO ID: [id number] Author: Ion Avila MD Service: Anesthesiology Author [...] 13, 2020 TIME: 12:38 PM PAGER/CONTACT #: [phone] [facility] NURSING PROGon 11-13-2020 NURSING PROG HNO ID: [id number] Author: Viky Nguyen RN Service: Nursing Author [...] Signed By: Yaquelin Nguyen RN [facility] NURSING PROG HNO ID: [id number] Author: Landy Smith RN Service: Nursing Author [...] By: Landy Smith RN In Department: GASTROENTEROLOGY [facility] 11-07-2020 CNPN Telephone ([facility]) CHIOMA RAINEY ([id number]) 1970 F Date Time Provider Department 11/07/20 NASREEN GORMAN [facility] During your visit today, we recorded the [...] have family/friend present for procedure? transport home:Patient/patient enrollment representative was told that if they do [...] area. Any barriers to Patient learning: Patient/Patient Storeroom Attendant responded appropriately on phone. Type of instruction [...] Fully Assessed Reason for Visit: Appointment Confirmation [4105] Prescriptions as of 11/07/2020 - promethazine HCl [...] Status:Closed by NASREEN GORMAN on 11/07/20 Normal [facility] CT ABDOMEN PELVIS W IV CONTR [...] Jhoan Beatty MD 03/28/20 Final result Normal [facility] Amylaseon 03-26-2020 Amylase [Catalytic activity/Vol] 185 U/L High 28-100 [facility] Comment on above: Performed By: #### R EJEC, NAT, LIP, CMPX #### [facility] [address] [place] [address] Formulation Chemist: Ion Jasso MD Amylase [Catalytic activity/Vol] 185 U/L High 28 - 100 U/L [place], [place] CBC Auto Differentialon 03-09 Basophils (Bld) [#/Vol] 0.06 10*3/uL [place] Basophils/100 WBC (Bld) 1 % 0 - 2 % [place] Differential Type NOT REPORTED [place] Eosinophils (Bld) [#/Vol] 0.12 10*3/uL [place] Eosinophils/100 WBC (Bld) 1 % 1 - 4 % [place] Erythrocyte distribution width (RBC) [Ratio] 12.4 % 11.8 - 14.4 % [place] Hematocrit (Bld) [Volume fraction] 40.6 % 36.3 - 47.1 % [place] Hemoglobin (Bld) [Mass/Vol] 13.7 g/dL 11.9 - 15.1 g/dL [place] Immature granulocytes (Bld) [#/Vol] 0 % 0 [place] Immature granulocytes (Bld) [#/Vol] 10*3/uL [place] Lymphocytes (Bld) [#/Vol] 2.62 10*3/uL [place] Lymphocytes/100 WBC (Bld) 27 % 24 - 43 % [place] MCH (RBC) [Entitic mass] 33.4 pg 25.2 - 33.5 pg [place] MCHC (RBC) [Mass/Vol] 33.7 g/dL 28.4 - 34.8 g/dL [place] MCV (RBC) [Entitic vol] 99.0 fL 82.6 - 102.9 fL [place] Monocytes (Bld) [#/Vol] 0.78 10*3/uL [place] Monocytes/100 WBC (Bld) 8 % 3 - 12 % [place] Platelet mean volume (Bld) [Entitic vol] 9.4 fL 8.1 - 13.5 fL [place] Platelets (Bld) [#/Vol] 235 10*3/uL [place] Platelets (Bld) [#/Vol] NOT REPORTED [place] RBC (Bld) [#/Vol] 4.10 10*6/uL 3.95 - 5.1 1 m/uL [place] RBC morphology finding Nom (Bld) NOT REPORTED [place] Segmented neutrophils/100 WBC (Bld) 63 % 36 - 65 % [place] Segs Absolute 5.96 [place] WBC (Bld) [#/Vol] 9.6 10*3/uL [place] WBC (Bld) [#/Vol] 0.0 10*3/uL 0.0 per 10 0 WBC [place] WBC Morphology NOT REPORTED [place], [place] CBC with Diffon 03-26-2020 Abs. Basophil 0.06 k/uL Normal 0.00-0.20 [facility] Comment on above: Performed By: #### C DP, LIP #### [facility] [address] [place] [address] Formulation Chemist: Zafar Castillo MD Abs.Imm.Granulocyte <0.03 Normal 0.00-0.30 [facility] Comment on above: Performed By: #### C DP, LIP #### [facility] [address] [place], [place] [address] Formulation Chemist: Zafar Castillo MD Abs.Neutrophil (Seg) 5.96 k/uL Normal 1.50-8.10 [facility] Comment on above: Performed By: #### C DP, LIP #### [address] [place], [place] [id number] Formulation Chemist: Zafar Castillo MD Basophils/100 WBC (Bld) 1 % Normal 0-2 [facility] Comment on above: Performed By: #### C DP, LIP #### [address] [place], [facility]83 Formulation Chemist: Zafar Castillo MD Eosinophils (Bld) [#/Vol] 0.12 10*3/uL Normal 0.00-0.44 [facility] Comment on above: Performed By: #### C DP, LIP #### [address] [place], [facility]83 Formulation Chemist: Zafar Castillo MD Eosinophils/100 WBC (Bld) 1 % Normal 1-4 [facility] Comment on above: Performed By: #### C DP, LIP #### [address] [place], [facility]83 Formulation Chemist: Zafar Castillo MD Erythrocyte distribution width (RBC) [Ratio] 12.4 % Normal 11.8-14.4 [facility] Comment on above: Performed By: #### C DP, LIP #### [address] [place], [facility]83 Formulation Chemist: Zafar Castillo MD Hematocrit (Bld) [Volume fraction] 40.6 % Normal 36.3-47.1 [facility] Comment on above: Performed By: #### C DP, LIP #### [address] [place], [facility]83 Formulation Chemist: Zafar Castillo MD Hemoglobin (Bld) [Mass/Vol] 13.7 g/dL Normal 11.9-15.1 [facility] Comment on above: Performed By: #### C DP, LIP #### [facility] [address] [place], [place] [address] Formulation Chemist: Zafar Castillo MD Immature granulocytes (Bld) [#/Vol] 0 % Normal 0 [facility] Comment on above: Performed By: #### C DP, LIP #### [facility] [address] [place], [place] [address] Formulation Chemist: Zafar Castillo MD Lymphocytes (Bld) [#/Vol] 2.62 10*3/uL Normal 1.10-3.70 [facility] Comment on above: Performed By: #### C DP, LIP #### [facility] [address] [place] [address] Formulation Chemist: Zafar Castillo MD Lymphocytes/100 WBC (Bld) 27 % Normal 24-43 [facility] Comment on above: Performed By: #### C DP, LIP #### [facility] [address] [place], [facility]83 Formulation Chemist: Zafar Castillo MD MCH (RBC) [Entitic mass] 33.4 pg Normal 25.2-33.5 [facility] Comment on above: Performed By: #### C DP, LIP #### [address] [place], [place] [address] Formulation Chemist: Zafar Castillo MD MCHC (RBC) [Mass/Vol] 33.7 g/dL Normal 28.4-34.8 [facility] Comment on above: Performed By: #### C DP, LIP #### [facility] [address] [place], [facility]83 Formulation Chemist: Zafar Castillo MD MCV (RBC) [Entitic vol] 99.0 fL Normal 82.6-102.9 [facility] Comment on above: Performed By: #### C DP, LIP #### [facility] [address] [place], [place] [id number] Formulation Chemist: Zafar Castillo MD Monocytes (Bld) [#/Vol] 0.78 10*3/uL Normal 0.10-1.20 [facility] Comment on above: Performed By: #### C DP, LIP #### [facility] [address] [place], [place] [id number] Formulation Chemist: Zafar Castillo MD Monocytes/100 WBC (Bld) 8 % Normal 3-12 [facility] Comment on above: Performed By: #### C DP, LIP #### [facility] [address] [place], [facility]83 Formulation Chemist: Zafar Castillo MD Neutrophil (Seg) 63 % Normal 36-65 [facility] Comment on above: Performed By: #### C DP, LIP #### [facility] [address] [place], [place] [id number] Formulation Chemist: Zafar Castillo MD NRBC Automated 0.0 per 100 WBC Normal 0.0 [facility] Comment on above: Performed By: #### C DP, LIP #### [facility] [address] [place], [place] [id number] Formulation Chemist: Zafar Castillo MD Platelet mean volume (Bld) [Entitic vol] 9.4 fL Normal 8.1-13.5 [facility] Comment on above: Performed By: #### C DP, LIP #### [facility] [address] [place] [address] Formulation Chemist: Zafar Castillo MD Platelets (Bld) [#/Vol] 235 10*3/uL Normal 138-453 [facility] Comment on above: Performed By: #### C DP, LIP #### [facility] [address] [place], [place] [id number] Formulation Chemist: Zafar Castillo MD RBC (Bld) [#/Vol] 4.10 10*6/uL Normal 3.95-5.11 [facility] Comment on above: Performed By: #### C DP, LIP #### [facility] [address] [place], [place] [id number] Formulation Chemist: Zafar Castillo MD WBC (Bld) [#/Vol] 9.6 10*3/uL Normal 3.5-11.3 [facility] Comment on above: Performed By: #### C DP, LIP #### [facility] [address] [place], [place] [id number] Formulation Chemist: Zafar Castillo MD Auto Diff Performed NOT REPORTED Normal [facility] Comment on above: Performed By: #### C DP, LIP #### [facility] [address] [place] [address] Formulation Chemist: Zafar Castillo MD Platelets (Bld) [#/Vol] NOT REPORTED Normal [facility] Comment on above: Performed By: #### C DP, LIP #### [facility] [address] [place], [place] [phone] Formulation Chemist: Zafar Castillo MD RBC morphology finding Nom (Bld) NOT REPORTED Normal [facility] Comment on above: Performed By: #### C DP, LIP #### [facility] [address] [place], [place] [phone] Formulation Chemist: Zafar Castillo MD WBC Morphology NOT REPORTED Normal [facility] Comment on above: Performed By: #### C DP, LIP #### [facility] [address] [place], [place] [phone] Formulation Chemist: Zafar Castillo MD Comp Metabolic Pr/rfx MGon 0 03-26-2020 (cont.) Normal [facility] Comment on above: Result Comment: Aver age GFR for 50-59 years old: 93 mL/min/1.73sq m Chronic Kidney Disease: <60 mL/min/1.73sq m Kidney failure: <15 mL/min/1.73sq m eGFR calculated using average adult body mass. Additional eGFR calculator available at: http://www.[employer].Telnic/multiple_crcl_2012.htm Performed By: #### R EJEC, NAT, LIP, CMPX #### [address] [place], [place] [phone] Formulation Chemist: Ion Jasso MD Albumin [Mass/Vol] 4.3 g/dL Normal 3.5-5.2 [facility] Comment on above: Performed By: #### R EJEC, NAT, LIP, CMPX #### [address] [place], [place] [id number] Formulation Chemist: Ion Jasso MD Albumin/Globulin [Mass ratio] 1.7 {ratio} Normal 1.0-2.5 [facility] Comment on above: Performed By: #### R EJEC, NAT, LIP, CMPX #### [address] [place], [place] [phone] Formulation Chemist: Ion Jasso MD Alkaline Phos 117 U/L High 35-104 [facility] Comment on above: Performed By: #### R EJEC, NAT, LIP, CMPX #### [address] [place] [address] Formulation Chemist: Ion Jasso MD ALT [Catalytic activity/Vol] 11 U/L Normal 5-33 [facility] Comment on above: Performed By: #### R EJEC, NAT, LIP, CMPX #### [address] [place], [place] 7774983 Formulation Chemist: Ion Jasso MD Anion gap [Moles/Vol] 9 mmol/L Normal 9-17 [facility] Comment on above: Performed By: #### R EJEC, NAT, LIP, CMPX #### [facility] [address] [place] [address] Dr. [place], [place] [phone] Formulation Chemist: Ion Jasso MD AST [Catalytic activity/Vol] 18 U/L Normal <32 [facility] Comment on above: Performed By: #### R EJEC, NAT, LIP, CMPX #### [facility] [address] [place], [place] [phone] Formulation Chemist: Ion Jasso MD Bilirubin Ql (U) 0.15 mg/dL Low 0.3-1.2 [facility] Comment on above: Performed By: #### R EJEC, NAT, LIP, CMPX #### [facility] [address] [place] [address] Dr. [place], [place] [phone] Formulation Chemist: Ion Jasso MD BUN/CRE Ratio 12 Normal 9-20 [facility] Comment on above: Performed By: #### R EJEC, NAT, LIP, CMPX #### [facility] [address] [place] [address] Dr. [place], [place] [phone] Formulation Chemist: Ion Jasso MD Calcium [Mass/Vol] 9.7 mg/dL Normal 8.6-10.4 [facility] Comment on above: Performed By: #### R EJEC, NAT, LIP, CMPX #### [facility] [address] [place] [address] Dr. [place], [place] [phone] Formulation Chemist: Ion Jasso MD Chloride [Moles/Vol] 102 mmol/L Normal 98-107 [facility] Comment on above: Performed By: #### R EJEC, NAT, LIP, CMPX #### [facility] [address] [place] [address] Dr. [place], [place] [id number] Formulation Chemist: Ion Jasso MD CO2 [Moles/Vol] 25 mmol/L Normal 20-31 [facility] Comment on above: Performed By: #### R EJEC, NAT, LIP, CMPX #### [facility] [address] [place] [address] Formulation Chemist: Ion Jasso MD Creatinine [Mass/Vol] 0.74 mg/dL Normal 0.50-0.90 [facility] Comment on above: Performed By: #### R EJEC, NAT, LIP, CMPX #### [facility] [address] [place] [address] [place] [address] Formulation Chemist: Ion Jasso MD GFR, Amer >60 Normal >60 [facility] Comment on above: Performed By: #### R EJEC, NAT, LIP, CMPX #### [facility] [address] [place] [address] Dr. [place], [place] [phone] Formulation Chemist: Ion Jasso MD GFR,non Amer >60 Normal >60 [facility] Comment on above: Performed By: #### R EJEC, NAT, LIP, CMPX #### [address] [place], [place] [phone] Formulation Chemist: Ion Jasso MD Glucose [Mass/Vol] 94 mg/dL Normal 70-99 [facility] Comment on above: Performed By: #### R ANGELINE, NAT, LIP, CMPX #### [address] [place], [place] [phone] Formulation Chemist: Ion Jasso MD Potassium [Moles/Vol] 4.2 mmol/L Normal 3.7-5.3 [facility] Comment on above: Performed By: #### R EJEC, NAT, LIP, CMPX #### [facility] [address] [place] [address] Dr. [place], [place] [phone] Formulation Chemist: Ion Jasso MD Protein [Mass/Vol] 6.8 g/dL Normal 6.4-8.3 [facility] Comment on above: Performed By: #### R EJEC, NAT, LIP, CMPX #### [address] [place] [address] Formulation Chemist: Ion Jasso MD Sodium [Moles/Vol] 136 mmol/L Normal 135-144 [facility] Comment on above: Performed By: #### R EJEC, NAT, LIP, CMPX #### [facility] [address] [place] [address] Formulation Chemist: Ion Jasso MD Staging: Normal [facility] Comment on above: Result Comment: Stag e 1: Some kidney damage normal GFR Stage 2: Mild kidney damage GFR 60-89 Stage 3: Moderate kidney damage GFR 30-59 Stage 4: Severe kidney damage GFR 15-29 Stage 5: Severe kidney damage GFR <15 ESRD - chronic treatment by dialysis or transplant Performed By: #### R EJEC, NAT, LIP, CMPX #### [facility] [address] [place] [address] Formulation Chemist: Ion Jasso MD Urea nitrogen [Mass/Vol] 9 mg/dL Normal 6-20 [facility] Comment on above: Performed By: #### R EJEC, NAT, LIP, CMPX #### [facility] [address] [place] [address] Formulation Chemist: Ion Jasso MD Comprehensive Metabolic Pane l w/ Reflex to MGon 03-26-2020 Albumin [Mass/Vol] 4.3 g/dL 3.5 - 5.2 g/dL [place] Albumin/Globulin [Mass ratio] 1.7 {ratio} [place] ALP [Catalytic activity/Vol] 117 U/L High 35 - 104 U/L [place] ALT [Catalytic activity/Vol] 11 U/L 5 - 33 U/L [place] Anion gap [Moles/Vol] 9 mmol/L 9 - 17 mmol/L [place] AST [Catalytic activity/Vol] 18 U/L <32 [place] Bilirubin Ql (U) 0.15 mg/dL Low 0.3 - 1.2 mg/dL [place] Bun/Cre Ratio 12 [place] Calcium [Mass/Vol] 9.7 mg/dL 8.6 - 10. 4 mg/dL [place] Chloride [Moles/Vol] 102 mmol/L 98 - 10 7 mmol/L [place] CO2 [Moles/Vol] 25 mmol/L 20 - 31 mmol/L [place] Creatinine [Mass/Vol] 0.74 mg/dL 0.5 - 0.9 mg/dL [place] GFR >60 >60 mL/min [place] GFR Non- >60 >60 mL/min [place] Glucose [Mass/Vol] 94 mg/dL 70 - 99 mg/dL [place] Potassium [Moles/Vol] 4.2 mmol/L 3.7 - 5.3 mmol/L [place] Protein [Mass/Vol] 6.8 g/dL 6.4 - 8.3 g/dL [place] Sodium [Moles/Vol] 136 mmol/L 135 - 144 mmol/L [place] Urea nitrogen [Mass/Vol] 9 mg/dL 6 - 20 mg/dL [place] Lactic Acidon 03-26-2020 Lactate [Moles/Vol] 1.3 mmol/L Normal 0.5-2.2 [facility] Comment on above: Performed By: #### C DP, LIP #### [facility] [address] [place] [address] Formulation Chemist: Zafar Castillo MD Lactate [Moles/Vol] 1.3 mmol/L 0.5 - 2. 2 mmol/L [place] Lipaseon 03-26-2020 Lipase [Catalytic activity/Vol] 225 U/L Critically high 13-60 [facility] Comment on above: Performed By: #### R EJEC, NAT, LIP, CMPX #### [facility] [address] [place] [address] Formulation Chemist: Ion Jasso MD Interpretation and review of laboratory results Abnormal [place] Lipase [Catalytic activity/Vol] 225 U/L Critically high 13 - 60 U/L [place] Metabolic Panelon 03-26-2020 GFR/1.73 sq M predicted among non-blacks MDRD (S/P/Bld) [Vol rate/Area] [place] Comment on above: Average GFR for 50-5 9 years old: 93 mL/min/1.73sq m Chronic Kidney Disease: <60 mL/min/1.73sq m Kidney failure: <15 mL/min/1.73sq m eGFR calculated using average adult body mass. Additional eGFR calculator available at: http://www.[employer]/multiple_crcl_2012.htm Stage 1: Some kidney damage normal GFR Stage 2: Mild kidney damage GFR 60-89 Stage 3: Moderate kidney damage GFR 30-59 Stage 4: Severe kidney damage GFR 15-29 Stage 5: Severe kidney damage GFR <15 ESRD - chronic treatment by dialysis or transplant Otheron 03-26-2020 Interpretation and review of laboratory results Abnormal [place] SPECIMEN REJECTIONon 021 Ordered Test CDP [place], [place] Reason for Rejection Unable to perform testing: Specimen clotted. [place] Specimen source Nom (Unsp spec) .BLOOD [place] - NOT REPORTED [place] Specimen Rejectionon 021 Reason for rejection Unable to perform testing: Specimen clotted. Normal [facility] Comment on above: Performed By: #### R EJEC, NAT, LIP, CMPX #### [facility] [address] [place] [address] Formulation Chemist: Ion Jasso MD Source of sample .BLOOD Normal [facility] Comment on above: Performed By: #### R EJEC, NAT, LIP, CMPX #### [facility] [address] [place] [address] Formulation Chemist: Ion Jasso MD Test ordered CDP [facility] Comment on above: Performed By: #### R EJEC, NAT, LIP, CMPX #### [facility] [address] [place] [address] Formulation Chemist: Ion Jasso MD ----- NOT REPORTED Normal [facility] Comment on above: Performed By: #### R EJEC, NAT, LIP, CMPX #### [facility] [address] [place] [address] Formulation Chemist: Ion Jasso MD Urinalysis, Routineon 2020 Acetoacetic Acid,Ur Negative Normal [facility] Comment on above: Performed By: #### C DP, LIP #### [facility] [address] [place] [address] Formulation Chemist: Zafar Castillo MD Bilirubin, SemiQt,Ur Negative Normal [facility] Comment on above: Performed By: #### C DP, LIP #### [facility] [address] [place] [address] Formulation Chemist: Zafar Castillo MD Color (U) YELLOW Normal [facility] Comment on above: Performed By: #### C DP, LIP #### [facility] [address] [place] [address] Formulation Chemist: Zafar Castillo MD Glucose Ql (U) Negative Normal [facility] Comment on above: Performed By: #### C DP, LIP #### [facility] [address] [place] [address] Formulation Chemist: Zafar Castillo MD Hemoglobin, Ur Negative Normal [facility] Comment on above: Performed By: #### C DP, LIP #### [facility] [address] [place] [address] Formulation Chemist: Zafar Castillo MD Leukocyte esterase Test strip Ql (U) Negative Normal [facility] Comment on above: Performed By: #### C DP, LIP #### [facility] [address] [place] [address] Formulation Chemist: Zafar Castillo MD Nitrite,Ur Negative Normal [facility] Comment on above: Performed By: #### C DP, LIP #### [facility] [address] [place], [place] [phone] Formulation Chemist: Zafar Castillo MD pH (U) 5.5 [pH] Normal 5.0-9.0 [facility] Comment on above: Performed By: #### C DP, LIP #### [facility] [address] [place], [place] [phone] Formulation Chemist: Zafar Castillo MD Protein Ql (U) Negative Normal NEG [facility] Comment on above: Performed By: #### C DP, LIP #### [facility] [address] [place], [place] [phone] Formulation Chemist: Zafar Castillo MD Specific gravity (U) [Rel density] 1.010 Normal 1.010-1.020 [facility] Comment on above: Performed By: #### C DP, LIP #### [facility] [address] [place], [place] [phone] Formulation Chemist: Zafar Castillo MD Turbidity CLEAR Normal CLEAR [facility] Comment on above: Performed By: #### C DP, LIP #### [facility] [address] [place], [place] [phone] Formulation Chemist: Zafar Castillo MD Urobilinogen,Ur Normal Normal NORM [facility] Comment on above: Performed By: #### C DP, LIP #### [facility] [address] [place], [place] [phone] Formulation Chemist: Zafar Castillo MD Comment NOT REPORTED Normal [facility] Comment on above: Performed By: #### C DP, LIP #### [facility] [address] [place] [address] Formulation Chemist: Zafar Castillo MD Urinalysis, reflex to micros copicon 03-26-2020 Bilirubin Urine Negative NEGATIVE [facility] [place] Color, UA YELLOW YELLOW [facility] Glucose, Ur Negative NEGATIVE [place] Ketones Ql (U) Negative NEGATIVE [place], [place] Leukocyte esterase Test strip Ql (U) Negative NEGATIVE [place] Nitrite, Urine Negative NEGATIVE [place], [place] pH, UA 5.5 [place] Protein (U) [Mass/Vol] Negative NEGATIVE [place] Specific [place], UA 1.010 [place], [place] Turbidity UA CLEAR CLEAR [place] Urinalysis Comments NOT REPORTED [place] Urine Hgb Negative NEGATIVE [place] Urobilinogen, Urine Normal Normal [place] CBC auto differentialon 08-07 Basophils (Bld) [#/Vol] 0.04 10*3/uL [place] Basophils/100 WBC (Bld) 1 % 0 - 2 % [place] Differential Type NOT REPORTED [place] Eosinophils (Bld) [#/Vol] 0.10 10*3/uL [place] Eosinophils/100 WBC (Bld) 1 % 1 - 4 % [place] Erythrocyte distribution width (RBC) [Ratio] 13.0 % 11.8 - 14.4 % [place] Hematocrit (Bld) [Volume fraction] 35.2 % Low 36.3 - 47.1 % [place] Hemoglobin (Bld) [Mass/Vol] 11.7 g/dL Low 11.9 - 15.1 g/dL [place] Immature granulocytes (Bld) [#/Vol] 10*3/uL [place] Immature granulocytes (Bld) [#/Vol] 0 % 0 [place] Interpretation and review of laboratory results Abnormal [place] Lymphocytes (Bld) [#/Vol] 1.87 10*3/uL [place] Lymphocytes/100 WBC (Bld) 22 % Low 24 - 43 % [place] MCH (RBC) [Entitic mass] 32.5 pg 25.2 - 33.5 pg [place] MCHC (RBC) [Mass/Vol] 33.2 g/dL 28.4 - 34.8 g/dL [place] MCV (RBC) [Entitic vol] 97.8 fL 82.6 - 102.9 fL [place] Monocytes (Bld) [#/Vol] 0.86 10*3/uL [place] Monocytes/100 WBC (Bld) 10 % 3 - 12 % [place] Platelet mean volume (Bld) [Entitic vol] 9.8 fL 8.1 - 13.5 fL [place] Platelets (Bld) [#/Vol] 178 10*3/uL [place] RBC (Bld) [#/Vol] 3.60 10*6/uL Low 3.95 - 5.1 1 m/uL [place] Segmented neutrophils/100 WBC (Bld) 66 % High 36 - 65 % [place] Segs Absolute 5.53 [place] WBC (Bld) [#/Vol] 0.0 10*3/uL 0.0 per 10 0 WBC [place] WBC (Bld) [#/Vol] 8.4 10*3/uL [place] CBC with Diffon 08-25-2019 Abs. Basophil 0.04 k/uL Normal 0.00-0.20 [facility] Comment on above: Performed By: #### C DP, LIP #### [address] [place] [address] Formulation Chemist: Zafar Castillo MD Abs.Imm.Granulocyte <0.03 Normal 0.00-0.30 [facility] Comment on above: Performed By: #### C DP, LIP #### [facility] [address] [place] [address] Formulation Chemist: Zafar Castillo MD Abs.Neutrophil (Seg) 5.53 k/uL Normal 1.50-8.10 [facility] Comment on above: Performed By: #### C DP, LIP #### [address] [place] [facility]83 Formulation Chemist: Zafar Castillo MD Basophils/100 WBC (Bld) 1 % Normal 0-2 [facility] Comment on above: Performed By: #### C DP, LIP #### [facility] [address] [place], [place] [phone] Formulation Chemist: Zafar Castillo MD Eosinophils (Bld) [#/Vol] 0.10 10*3/uL Normal 0.00-0.44 [facility] Comment on above: Performed By: #### C DP, LIP #### [facility] [address] [place], [facility]83 Formulation Chemist: Zafar Castillo MD Eosinophils/100 WBC (Bld) 1 % Normal 1-4 [facility] Comment on above: Performed By: #### C DP, LIP #### [facility] [address] [place], [facility]83 Formulation Chemist: Zafar Castillo MD Erythrocyte distribution width (RBC) [Ratio] 13.0 % Normal 11.8-14.4 [facility] Comment on above: Performed By: #### C DP, LIP #### [address] [place] [phone] Formulation Chemist: Zafar Castillo MD Hematocrit (Bld) [Volume fraction] 35.2 % Low 36.3-47.1 [facility] Comment on above: Performed By: #### C DP, LIP #### [facility] [address] [place], [facility]83 Formulation Chemist: Zafar Castillo MD Hemoglobin (Bld) [Mass/Vol] 11.7 g/dL Low 11.9-15.1 [facility] Comment on above: Performed By: #### C DP, LIP #### [facility] [address] [place] [address] Formulation Chemist: Zafar Castillo MD Immature granulocytes (Bld) [#/Vol] 0 % Normal 0 [facility] Comment on above: Performed By: #### C DP, LIP #### [facility] [address] [place], [place] [address] Formulation Chemist: Zafar Castillo MD Lymphocytes (Bld) [#/Vol] 1.87 10*3/uL Normal 1.10-3.70 [facility] Comment on above: Performed By: #### C DP, LIP #### [facility] [address] [place], [facility]83 Formulation Chemist: Zafar Castillo MD Lymphocytes/100 WBC (Bld) 22 % Low 24-43 [facility] Comment on above: Performed By: #### C DP, LIP #### [facility] [address] [place], [facility]83 Formulation Chemist: Zafar Castillo MD MCH (RBC) [Entitic mass] 32.5 pg Normal 25.2-33.5 [facility] Comment on above: Performed By: #### C DP, LIP #### [facility] [address] [place], [facility]83 Formulation Chemist: Zafar Castillo MD MCHC (RBC) [Mass/Vol] 33.2 g/dL Normal 28.4-34.8 [facility] Comment on above: Performed By: #### C DP, LIP #### [address] [place], [facility]83 Formulation Chemist: Zafar Castillo MD MCV (RBC) [Entitic vol] 97.8 fL Normal 82.6-102.9 [facility] Comment on above: Performed By: #### C DP, LIP #### [facility] [address] [place], [place] [phone] Formulation Chemist: Zafar Castillo MD Monocytes (Bld) [#/Vol] 0.86 10*3/uL Normal 0.10-1.20 [facility] Comment on above: Performed By: #### C DP, LIP #### [facility] [address] [place], [place] [phone] Formulation Chemist: Zafar Castillo MD Monocytes/100 WBC (Bld) 10 % Normal 3-12 [facility] Comment on above: Performed By: #### C DP, LIP #### [facility] [address] [place], [place] [phone] Formulation Chemist: Zafar Castillo MD Neutrophil (Seg) 66 % High 36-65 [facility] Comment on above: Performed By: #### C DP, LIP #### [facility] [address] [place], [facility]83 Formulation Chemist: Zafar Castillo MD NRBC Automated 0.0 per 100 WBC Normal 0.0 [facility] Comment on above: Performed By: #### C DP, LIP #### [facility] [address] [place], [facility]83 Formulation Chemist: Zafar Castillo MD Platelet mean volume (Bld) [Entitic vol] 9.8 fL Normal 8.1-13.5 [facility] Comment on above: Performed By: #### C DP, LIP #### [facility] [address] [place], [place] [phone] Formulation Chemist: Zafar Castillo MD Platelets (Bld) [#/Vol] 178 10*3/uL Normal 138-453 [facility] Comment on above: Performed By: #### C DP, LIP #### [facility] [address] [place], [place] [phone] Formulation Chemist: Zafar Castillo MD RBC (Bld) [#/Vol] 3.60 10*6/uL Low 3.95-5.11 [facility] Comment on above: Performed By: #### C DP, LIP #### [facility] [address] [place] [address] Formulation Chemist: Zafar Castillo MD WBC (Bld) [#/Vol] 8.4 10*3/uL Normal 3.5-11.3 [facility] Comment on above: Performed By: #### C DP, LIP #### [facility] [address] [place], [place] [phone] Formulation Chemist: Zafar Castillo MD Auto Diff Performed NOT REPORTED Normal [facility] Comment on above: Performed By: #### C DP, LIP #### [facility] [address] [place], [place] [phone] Formulation Chemist: Zafar Castillo MD Platelets (Bld) [#/Vol] NOT REPORTED Normal [place] Comment on above: Performed By: #### C DP, LIP #### [address] [place] [address] Formulation Chemist: Zafar Castillo MD RBC morphology finding Nom (Bld) NOT REPORTED Normal [place] Comment on above: Performed By: #### C DP, LIP #### [facility] [address] [place] [address] [place] [address] Formulation Chemist: Zafar Castillo MD WBC Morphology NOT REPORTED Normal [place], [place] Comment on above: Performed By: #### C DP, LIP #### [facility] [address] [place] [address] [place], [place] [id number] Formulation Chemist: Zafar Castillo MD Lipaseon 08-25-2019 Lipase [Catalytic activity/Vol] 42 U/L Normal 13-60 [facility] Comment on above: Performed By: #### C DP, LIP #### [facility] [address] [place] [address] Formulation Chemist: Zafar Castillo MD Lipase [Catalytic activity/Vol] 42 U/L - 60 U/L [place] CBC auto differentialon 08-07 Basophils (Bld) [#/Vol] 0.04 10*3/uL [place] Basophils/100 WBC (Bld) 1 % 0 - 2 % [place] Differential Type NOT REPORTED [place] Eosinophils (Bld) [#/Vol] 0.08 10*3/uL [place] Eosinophils/100 WBC (Bld) 1 % 1 - 4 % [place] Erythrocyte distribution width (RBC) [Ratio] 12.9 % 11.8 - 14.4 % [place] Hematocrit (Bld) [Volume fraction] 35.9 % Low 36.3 - 47.1 % [place] Hemoglobin (Bld) [Mass/Vol] 11.9 g/dL 11.9 - 15.1 g/dL [place] Immature granulocytes (Bld) [#/Vol] 0 % 0 [place] Immature granulocytes (Bld) [#/Vol] 0.03 10*3/uL [place] Interpretation and review of laboratory results Abnormal [place] Lymphocytes (Bld) [#/Vol] 1.79 10*3/uL [place] Lymphocytes/100 WBC (Bld) 22 % Low 24 - 43 % [place] MCH (RBC) [Entitic mass] 32.3 pg 25.2 - 33.5 pg [place] MCHC (RBC) [Mass/Vol] 33.1 g/dL 28.4 - 34.8 g/dL [place] MCV (RBC) [Entitic vol] 97.6 fL 82.6 - 102.9 fL [place] Monocytes (Bld) [#/Vol] 0.75 10*3/uL [place] Monocytes/100 WBC (Bld) 9 % 3 - 12 % [place] Platelet mean volume (Bld) [Entitic vol] 10.1 fL 8.1 - 13.5 fL [place] Platelets (Bld) [#/Vol] 176 10*3/uL [place] Platelets (Bld) [#/Vol] NOT REPORTED [place] RBC (Bld) [#/Vol] 3.68 10*6/uL Low 3.95 - 5.1 1 m/uL [place] RBC morphology finding Nom (Bld) NOT REPORTED [place] Segmented neutrophils/100 WBC (Bld) 67 % High 36 - 65 % [place] Segs Absolute 5.61 [place] WBC (Bld) [#/Vol] 0.0 10*3/uL 0.0 per 10 0 WBC [place] WBC (Bld) [#/Vol] 8.3 10*3/uL [place] WBC Morphology NOT REPORTED [place] CBC with Diffon 08-24-2019 Abs. Basophil 0.04 k/uL Normal 0.00-0.20 [facility] Comment on above: Performed By: #### C DP, LIP #### [facility] [address] [place] [address] Dr. [place] [phone] Formulation Chemist: Zafar Castillo MD Abs.Imm.Granulocyte 0.03 k/uL Normal 0.00-0.30 [facility] Comment on above: Performed By: #### C DP, LIP #### [address] [place] [address] Formulation Chemist: Zafar Castillo MD Abs.Neutrophil (Seg) 5.61 k/uL Normal 1.50-8.10 [facility] Comment on above: Performed By: #### C DP, LIP #### [address] [place] [address] Formulation Chemist: Zafar Castillo MD Basophils/100 WBC (Bld) 1 % Normal 0-2 [facility] Comment on above: Performed By: #### C DP, LIP #### [facility] [address] [place] [phone] Formulation Chemist: Zafar Castillo MD Eosinophils (Bld) [#/Vol] 0.08 10*3/uL Normal 0.00-0.44 [facility] Comment on above: Performed By: #### C DP, LIP #### [facility] [address] [place], [place] [phone] Formulation Chemist: Zafar Castillo MD Eosinophils/100 WBC (Bld) 1 % Normal 1-4 [facility] Comment on above: Performed By: #### C DP, LIP #### [facility] [address] [place], [place] [phone] Formulation Chemist: Zafar Castillo MD Erythrocyte distribution width (RBC) [Ratio] 12.9 % Normal 11.8-14.4 [facility] Comment on above: Performed By: #### C DP, LIP #### [facility] [address] [place] [address] Formulation Chemist: Zafar Castillo MD Hematocrit (Bld) [Volume fraction] 35.9 % Low 36.3-47.1 [facility] Comment on above: Performed By: #### C DP, LIP #### [facility] [address] [place] [phone] Formulation Chemist: Zafar Castillo MD Hemoglobin (Bld) [Mass/Vol] 11.9 g/dL Normal 11.9-15.1 [facility] Comment on above: Performed By: #### C DP, LIP #### [address] [place] [phone] Formulation Chemist: Zafar Castillo MD Immature granulocytes (Bld) [#/Vol] 0 % Normal 0 [facility] Comment on above: Performed By: #### C DP, LIP #### [facility] [address] [place] [phone] Formulation Chemist: Zafar Castillo MD Lymphocytes (Bld) [#/Vol] 1.79 10*3/uL Normal 1.10-3.70 [facility] Comment on above: Performed By: #### C DP, LIP #### [facility] [address] [place] [phone] Formulation Chemist: Zafar Castillo MD Lymphocytes/100 WBC (Bld) 22 % Low 24-43 [facility] Comment on above: Performed By: #### C DP, LIP #### [facility] [address] [place], [place] [phone] Formulation Chemist: Zafar Castillo MD MCH (RBC) [Entitic mass] 32.3 pg Normal 25.2-33.5 [facility] Comment on above: Performed By: #### C DP, LIP #### [facility] [address] [place], [place] [phone] Formulation Chemist: Zafar Castillo MD MCHC (RBC) [Mass/Vol] 33.1 g/dL Normal 28.4-34.8 [facility] Comment on above: Performed By: #### C DP, LIP #### [address] [place], [facility]83 Formulation Chemist: Zafar Castillo MD MCV (RBC) [Entitic vol] 97.6 fL Normal 82.6-102.9 [facility] Comment on above: Performed By: #### C DP, LIP #### [facility] [address] [place], [place] [phone] Formulation Chemist: Zafar Castillo MD Monocytes (Bld) [#/Vol] 0.75 10*3/uL Normal 0.10-1.20 [facility] Comment on above: Performed By: #### C DP, LIP #### [facility] [address] [place], [place] [phone] Formulation Chemist: Zafar Castillo MD Monocytes/100 WBC (Bld) 9 % Normal 3-12 [facility] Comment on above: Performed By: #### C DP, LIP #### [facility] [address] [place], [place] [phone] Formulation Chemist: Zafar Castillo MD Neutrophil (Seg) 67 % High 36-65 [facility] Comment on above: Performed By: #### C DP, LIP #### [facility] [address] [place] [address] Formulation Chemist: Zafar Castillo MD NRBC Automated 0.0 per 100 WBC Normal 0.0 [facility] Comment on above: Performed By: #### C DP, LIP #### [facility] [address] [place], [facility]83 Formulation Chemist: Zafar Castillo MD Platelet mean volume (Bld) [Entitic vol] 10.1 fL Normal 8.1-13.5 [facility] Comment on above: Performed By: #### C DP, LIP #### [facility] [address] [place], [facility]83 Formulation Chemist: Zafar Castillo MD Platelets (Bld) [#/Vol] 176 10*3/uL Normal 138-453 [facility] Comment on above: Performed By: #### C DP, LIP #### [facility] [address] [place], [facility]83 Formulation Chemist: Zafar Castillo MD RBC (Bld) [#/Vol] 3.68 10*6/uL Low 3.95-5.11 [facility] Comment on above: Performed By: #### C DP, LIP #### [facility] [address] [place], [facility]83 Formulation Chemist: Zafar Castillo MD WBC (Bld) [#/Vol] 8.3 10*3/uL Normal 3.5-11.3 [facility] Comment on above: Performed By: #### C DP, LIP #### [facility] [address] [place], [facility]83 Formulation Chemist: Zafar Castillo MD Auto Diff Performed NOT REPORTED Normal [facility] Comment on above: Performed By: #### C DP, LIP #### [facility] [address] [place], [facility]83 Formulation Chemist: Zafar Castillo MD Platelets (Bld) [#/Vol] NOT REPORTED Normal [facility] Comment on above: Performed By: #### C DP, LIP #### [facility] [address] [place], [place] [phone] Formulation Chemist: Zafar Castillo MD RBC morphology finding Nom (Bld) NOT REPORTED Normal [facility] Comment on above: Performed By: #### C DP, LIP #### [facility] [address] [place], [place] [phone] Formulation Chemist: Zafar Castillo MD WBC Morphology NOT REPORTED Normal [facility] Comment on above: Performed By: #### C DP, LIP #### [facility] [address] [place], [place] [phone] Formulation Chemist: Zafar Castillo MD Lipaseon 08-24-2019 Lipase [Catalytic activity/Vol] 69 U/L High 13-60 [facility] Comment on above: Performed By: #### C DP, LIP #### [facility] [address] [place] [address] Formulation Chemist: Zafar Castillo MD Interpretation and review of laboratory results Abnormal [place] Lipase [Catalytic activity/Vol] 69 U/L High 13 - 60 U/L [place] CBC auto differentialon 08-07 Basophils (Bld) [#/Vol] 0.05 10*3/uL [place] Basophils/100 WBC (Bld) 1 % 0 - 2 % [place] Differential Type NOT REPORTED [place] Eosinophils (Bld) [#/Vol] 0.13 10*3/uL [place] Eosinophils/100 WBC (Bld) 2 % 1 - 4 % [place] Erythrocyte distribution width (RBC) [Ratio] 13.2 % 11.8 - 14.4 % [place] Hematocrit (Bld) [Volume fraction] 36.7 % 36.3 - 47.1 % [place] Hemoglobin (Bld) [Mass/Vol] 11.8 g/dL Low 11.9 - 15.1 g/dL [place] Immature granulocytes (Bld) [#/Vol] 0 % 0 [place] Immature granulocytes (Bld) [#/Vol] 10*3/uL [place] Interpretation and review of laboratory results Abnormal [place] Lymphocytes (Bld) [#/Vol] 2.39 10*3/uL [place] Lymphocytes/100 WBC (Bld) 28 % 24 - 43 % [place] MCH (RBC) [Entitic mass] 32.1 pg 25.2 - 33.5 pg [place] MCHC (RBC) [Mass/Vol] 32.2 g/dL 28.4 - 34.8 g/dL [place] MCV (RBC) [Entitic vol] 99.7 fL 82.6 - 102.9 fL [place] Monocytes (Bld) [#/Vol] 0.77 10*3/uL [place] Monocytes/100 WBC (Bld) 9 % 3 - 12 % [place] Platelet mean volume (Bld) [Entitic vol] 10.1 fL 8.1 - 13.5 fL [place] Platelets (Bld) [#/Vol] 174 10*3/uL [place] Platelets (Bld) [#/Vol] NOT REPORTED [place] RBC (Bld) [#/Vol] 3.68 10*6/uL Low 3.95 - 5.1 1 m/uL [place] RBC morphology finding Nom (Bld) NOT REPORTED [place] Segmented neutrophils/100 WBC (Bld) 60 % 36 - 65 % [place] Segs Absolute 5.22 [place] WBC (Bld) [#/Vol] 0.0 10*3/uL 0.0 per 10 0 WBC [place] WBC (Bld) [#/Vol] 8.6 10*3/uL [place] WBC Morphology NOT REPORTED [facility] [place] CBC with Diffon 08-23-2019 Abs. Basophil 0.05 k/uL Normal 0.00-0.20 [facility] Comment on above: Performed By: #### C DP, LIP #### [facility] [address] [place], [place] [phone] Formulation Chemist: Zafar Castillo MD Abs.Imm.Granulocyte <0.03 Normal 0.00-0.30 [facility] Comment on above: Performed By: #### C DP, LIP #### [facility] [address] [place] [address] Formulation Chemist: Zafar Castillo MD Abs.Neutrophil (Seg) 5.22 k/uL Normal 1.50-8.10 [facility] Comment on above: Performed By: #### C DP, LIP #### [facility] [address] [place] [phone] Formulation Chemist: Zafar Castillo MD Basophils/100 WBC (Bld) 1 % Normal 0-2 [facility] Comment on above: Performed By: #### C DP, LIP #### [facility] [address] [place], [place] [phone] Formulation Chemist: Zafar Castillo MD Eosinophils (Bld) [#/Vol] 0.13 10*3/uL Normal 0.00-0.44 [facility] Comment on above: Performed By: #### C DP, LIP #### [facility] [address] [place], [place] [phone] Formulation Chemist: Zafar Castillo MD Eosinophils/100 WBC (Bld) 2 % Normal 1-4 [facility] Comment on above: Performed By: #### C DP, LIP #### [facility] [address] [place], [place] [phone] Formulation Chemist: Zafar Castillo MD Erythrocyte distribution width (RBC) [Ratio] 13.2 % Normal 11.8-14.4 [facility] Comment on above: Performed By: #### C DP, LIP #### [facility] [address] [place], [place] [phone] Formulation Chemist: Zafar Castillo MD Hematocrit (Bld) [Volume fraction] 36.7 % Normal 36.3-47.1 [facility] Comment on above: Performed By: #### C DP, LIP #### [facility] [address] [place] [address] Formulation Chemist: Zafar Castillo MD Hemoglobin (Bld) [Mass/Vol] 11.8 g/dL Low 11.9-15.1 [facility] Comment on above: Performed By: #### C DP, LIP #### [address] [place] [facility]83 Formulation Chemist: Zafar Castillo MD Immature granulocytes (Bld) [#/Vol] 0 % Normal 0 [facility] Comment on above: Performed By: #### C DP, LIP #### [facility] [address] [place] [phone] Formulation Chemist: Zafar Castillo MD Lymphocytes (Bld) [#/Vol] 2.39 10*3/uL Normal 1.10-3.70 [facility] Comment on above: Performed By: #### C DP, LIP #### [address] [place] [address] Formulation Chemist: Zafar Castillo MD Lymphocytes/100 WBC (Bld) 28 % Normal 24-43 [facility] Comment on above: Performed By: #### C DP, LIP #### [facility] [address] [place] [phone] Formulation Chemist: Zafar Castillo MD MCH (RBC) [Entitic mass] 32.1 pg Normal 25.2-33.5 [facility] Comment on above: Performed By: #### C DP, LIP #### [facility] [address] [place] [address] Formulation Chemist: Zafar Castillo MD MCHC (RBC) [Mass/Vol] 32.2 g/dL Normal 28.4-34.8 [facility] Comment on above: Performed By: #### C DP, LIP #### [facility] [address] [place], [place] [phone] Formulation Chemist: Zafar Castillo MD MCV (RBC) [Entitic vol] 99.7 fL Normal 82.6-102.9 [facility] Comment on above: Performed By: #### C DP, LIP #### [facility] [address] [place], [facility]83 Formulation Chemist: Zafar Castillo MD Monocytes (Bld) [#/Vol] 0.77 10*3/uL Normal 0.10-1.20 [facility] Comment on above: Performed By: #### C DP, LIP #### [facility] [address] [place], [facility]83 Formulation Chemist: Zafar Castillo MD Monocytes/100 WBC (Bld) 9 % Normal 3-12 [facility] Comment on above: Performed By: #### C DP, LIP #### [facility] [address] [place], [facility]83 Formulation Chemist: Zafar Castillo MD Neutrophil (Seg) 60 % Normal 36-65 [facility] Comment on above: Performed By: #### C DP, LIP #### [facility] [address] [place], [facility]83 Formulation Chemist: Zafar Castillo MD NRBC Automated 0.0 per 100 WBC Normal 0.0 [facility] Comment on above: Performed By: #### C DP, LIP #### [facility] [address] [place], [place] [phone] Formulation Chemist: Zafar Castillo MD Platelet mean volume (Bld) [Entitic vol] 10.1 fL Normal 8.1-13.5 [facility] Comment on above: Performed By: #### C DP, LIP #### [facility] [address] [place], [place] [address] Formulation Chemist: Zafar Castillo MD Platelets (Bld) [#/Vol] 174 10*3/uL Normal 138-453 [facility] Comment on above: Performed By: #### C DP, LIP #### [facility] [address] [place], [facility]83 Formulation Chemist: Zafar Castillo MD RBC (Bld) [#/Vol] 3.68 10*6/uL Low 3.95-5.11 [facility] Comment on above: Performed By: #### C DP, LIP #### [facility] [address] [place], [facility]83 Formulation Chemist: Zafar Castillo MD WBC (Bld) [#/Vol] 8.6 10*3/uL Normal 3.5-11.3 [facility] Comment on above: Performed By: #### C DP, LIP #### [facility] [address] [place], [place] [address] Formulation Chemist: Zafar Castillo MD Auto Diff Performed NOT REPORTED Normal [facility] Comment on above: Performed By: #### C DP, LIP #### [facility] [address] [place], [place] [address] Formulation Chemist: Zafar Castillo MD Platelets (Bld) [#/Vol] NOT REPORTED Normal [facility] Comment on above: Performed By: #### C DP, LIP #### [facility] [address] [place], [place] [address] Formulation Chemist: Zafar Castillo MD RBC morphology finding Nom (Bld) NOT REPORTED Normal [facility] Comment on above: Performed By: #### C DP, LIP #### [facility] [address] [place], [facility]83 Formulation Chemist: Zafar Castillo MD WBC Morphology NOT REPORTED Normal [facility] Comment on above: Performed By: #### C DP, LIP #### [facility] [address] [place] [address] Formulation Chemist: Zafar Castillo MD Comp Metabolic Profon 2019 (cont.) Normal [facility] Comment on above: Result Comment: Aver age GFR for 50-59 years old: 93 mL/min/1.73sq m Chronic Kidney Disease: <60 mL/min/1.73sq m Kidney failure: <15 mL/min/1.73sq m eGFR calculated using average adult body mass. Additional eGFR calculator available at: http://www.[employer]/multiple_crcl_2011.htm Performed By: #### C DP, LIP #### [facility] [address] [place] [address] Formulation Chemist: Zafar Castillo MD Albumin [Mass/Vol] 3.4 g/dL Low 3.5-5.2 [facility] Comment on above: Performed By: #### C DP, LIP #### [facility] [address] [place] [address] Formulation Chemist: Zafar Castillo MD Albumin/Globulin [Mass ratio] 1.7 {ratio} Normal 1.0-2.5 [facility] Comment on above: Performed By: #### C DP, LIP #### [facility] [address] [place], [place] [phone] Formulation Chemist: Zafar Castillo MD Alkaline Phos 102 U/L Normal 35-104 [facility] Comment on above: Performed By: #### C DP, LIP #### [facility] [address] [place] [address] Formulation Chemist: Zafar Castillo MD ALT [Catalytic activity/Vol] 34 U/L High 5-33 [facility] Comment on above: Performed By: #### C DP, LIP #### [facility] [address] [place], [place] [phone] Formulation Chemist: Zafar Castillo MD Anion gap [Moles/Vol] 7 mmol/L Low 9-17 [facility] Comment on above: Performed By: #### C DP, LIP #### [facility] [address] [place], [place] [phone] Formulation Chemist: Zafar Castillo MD AST [Catalytic activity/Vol] 95 U/L High <32 [facility] Comment on above: Performed By: #### C DP, LIP #### [facility] [address] [place], [place] [phone] Formulation Chemist: Zafar Castillo MD Bilirubin Ql (U) 0.46 mg/dL Normal 0.3-1.2 [facility] Comment on above: Performed By: #### C DP, LIP #### [facility] [address] [place], [place] [phone] Formulation Chemist: Zafar Castillo MD BUN/CRE Ratio 11 Normal 9-20 [facility] Comment on above: Performed By: #### C DP, LIP #### [facility] [address] [place], [place] [phone] Formulation Chemist: Zafar Castillo MD Calcium [Mass/Vol] 8.4 mg/dL Low 8.6-10.4 [facility] Comment on above: Performed By: #### C DP, LIP #### [facility] [address] [place], [place] [phone] Formulation Chemist: Zafar Castillo MD Chloride [Moles/Vol] 109 mmol/L High 98-107 [facility] Comment on above: Performed By: #### C DP, LIP #### [facility] [address] [place] [address] Formulation Chemist: Zafar Castillo MD CO2 [Moles/Vol] 22 mmol/L Normal 20-31 [facility] Comment on above: Performed By: #### C DP, LIP #### [facility] [address] [place] [address] Formulation Chemist: Zafar Castillo MD Creatinine [Mass/Vol] 0.66 mg/dL Normal 0.50-0.90 [facility] Comment on above: Performed By: #### C DP, LIP #### [facility] [address] [place], [place] [phone] Formulation Chemist: Zafar Castillo MD GFR, Amer >60 Normal >60 [facility] Comment on above: Performed By: #### C DP, LIP #### [facility] [address] [place] [address] Formulation Chemist: Zafar Castillo MD GFR,non Amer >60 Normal >60 [facility] Comment on above: Performed By: #### C DP, LIP #### [facility] [address] [place], [place] [phone] Formulation Chemist: Zafar Castillo MD Glucose [Mass/Vol] 89 mg/dL Normal 70-99 [facility] Comment on above: Performed By: #### C DP, LIP #### [facility] [address] [place], [place] [phone] Formulation Chemist: Zafar Castillo MD Potassium [Moles/Vol] 4.3 mmol/L Normal 3.7-5.3 [facility] Comment on above: Performed By: #### C DP, LIP #### [facility] [address] [place], [place] [phone] Formulation Chemist: Zafar Castillo MD Protein [Mass/Vol] 5.4 g/dL Low 6.4-8.3 [facility] Comment on above: Performed By: #### C DP, LIP #### [facility] [address] [place] [address] Formulation Chemist: Zafar Castillo MD Sodium [Moles/Vol] 138 mmol/L Normal 135-144 [facility] Comment on above: Performed By: #### C DP, LIP #### [facility] [address] [place] [address] Formulation Chemist: Zafar Castillo MD Staging: Normal [facility] Comment on above: Result Comment: Stag e 1: Some kidney damage normal GFR Stage 2: Mild kidney damage GFR 60-89 Stage 3: Moderate kidney damage GFR 30-59 Stage 4: Severe kidney damage GFR 15-29 Stage 5: Severe kidney damage GFR <15 ESRD - chronic treatment by dialysis or transplant Performed By: #### C DP, LIP #### [facility] [address] [place] [address] Formulation Chemist: Zafar Castillo MD Urea nitrogen [Mass/Vol] 7 mg/dL Normal 6-20 [facility] Comment on above: Performed By: #### C DP, LIP #### [facility] [address] [place] [address] Formulation Chemist: Zafar Castillo MD [facility] metabolic [facility] 08-23-2019 Albumin [Mass/Vol] 3.4 g/dL Low 3.5 - 5.2 g/dL [place] Albumin/Globulin [Mass ratio] 1.7 {ratio} [place] ALP [Catalytic activity/Vol] 102 U/L 35 - 104 U/L [place] ALT [Catalytic activity/Vol] 34 U/L High 5 - 33 U/L [place] Anion gap [Moles/Vol] 7 mmol/L Low 9 - 17 mmol/L [place] AST [Catalytic activity/Vol] 95 U/L High <32 [place] Bilirubin Ql (U) 0.46 mg/dL 0.3 - 1.2 mg/dL [place] Bun/Cre Ratio 11 [place] Calcium [Mass/Vol] 8.4 mg/dL Low 8.6 - 10. 4 mg/dL [place] Chloride [Moles/Vol] 109 mmol/L High 98 - 10 7 mmol/L [place] CO2 [Moles/Vol] 22 mmol/L 20 - 31 mmol/L [place] Creatinine [Mass/Vol] 0.66 mg/dL 0.5 - 0.9 mg/dL [place] GFR >60 >60 mL/min [place] GFR Non- >60 >60 mL/min [place] Glucose [Mass/Vol] 89 mg/dL 70 - 99 mg/dL [place] Potassium [Moles/Vol] 4.3 mmol/L 3.7 - 5.3 mmol/L [place] Protein [Mass/Vol] 5.4 g/dL Low 6.4 - 8.3 g/dL [place] Sodium [Moles/Vol] 138 mmol/L 135 - 144 mmol/L [place] Urea nitrogen [Mass/Vol] 7 mg/dL 6 - 20 mg/dL [place] Lipaseon 08-23-2019 Lipase [Catalytic activity/Vol] 96 U/L High 13-60 [facility] Comment on above: Performed By: #### C DP, LIP #### [facility] [address] [place] [address] Formulation Chemist: Zafar Castillo MD Lipase [Catalytic activity/Vol] 96 U/L High 13 - 60 U/L [place] Metabolic Panelon 08-23-2019 GFR/1.73 sq M predicted among non-blacks MDRD (S/P/Bld) [Vol rate/Area] [place] Comment on above: Stage 1: Some [...] body mass. Additional eGFR calculator available at: http://www.[employer]nic/multiple_crcl_2012.htm Otheron 08-23-2019 Interpretation and review of laboratory results Abnormal [place] CBC Auto Differentialon 08-07 Basophils (Bld) [#/Vol] 0.06 10*3/uL [place] Basophils/100 WBC (Bld) 1 % 0 - 2 % [place] Differential Type NOT REPORTED [place] Eosinophils (Bld) [#/Vol] 0.11 10*3/uL [place] Eosinophils/100 WBC (Bld) 1 % 1 - 4 % [place] Erythrocyte distribution width (RBC) [Ratio] 13.2 % 11.8 - 14.4 % [place] Hematocrit (Bld) [Volume fraction] 41.8 % 36.3 - 47.1 % [place] Hemoglobin (Bld) [Mass/Vol] 13.7 g/dL 11.9 - 15.1 g/dL [place] Immature granulocytes (Bld) [#/Vol] 0.03 10*3/uL [place] Immature granulocytes (Bld) [#/Vol] 0 % 0 [place] Interpretation and review of laboratory results Abnormal [place] Lymphocytes (Bld) [#/Vol] 2.23 10*3/uL [place] Lymphocytes/100 WBC (Bld) 24 % 24 - 43 % [place] MCH (RBC) [Entitic mass] 32.6 pg 25.2 - 33.5 pg [place] MCHC (RBC) [Mass/Vol] 32.8 g/dL 28.4 - 34.8 g/dL [place] MCV (RBC) [Entitic vol] 99.5 fL 82.6 - 102.9 fL [place] Monocytes (Bld) [#/Vol] 0.72 10*3/uL [place] Monocytes/100 WBC (Bld) 8 % 3 - 12 % [place] Platelet mean volume (Bld) [Entitic vol] 10.0 fL 8.1 - 13.5 fL [place] Platelets (Bld) [#/Vol] NOT REPORTED [place] Platelets (Bld) [#/Vol] 213 10*3/uL [place] RBC (Bld) [#/Vol] 4.20 10*6/uL 3.95 - 5.1 1 m/uL [place] RBC morphology finding Nom (Bld) NOT REPORTED [place] Segmented neutrophils/100 WBC (Bld) 66 % High 36 - 65 % [place] Segs Absolute 6.22 [place], [place] WBC (Bld) [#/Vol] 0.0 10*3/uL 0.0 per 10 0 WBC [place] WBC (Bld) [#/Vol] 9.4 10*3/uL [place] WBC Morphology NOT REPORTED [place], [place] CBC with Diffon 08-22-2019 Abs. Basophil 0.06 k/uL Normal 0.00-0.20 [facility] Comment on above: Performed By: #### C P, CDP, LIP #### [address] [place] [address] Formulation Chemist: Zafar Castillo MD Abs.Imm.Granulocyte 0.03 k/uL Normal 0.00-0.30 [facility] Comment on above: Performed By: #### C P, CDP, LIP #### [address] [place] [id number] Formulation Chemist: Zafar Castillo MD Abs.Neutrophil (Seg) 6.22 k/uL Normal 1.50-8.10 [facility] Comment on above: Performed By: #### C P, CDP, LIP #### [address] [place] [address] Formulation Chemist: Zafar Castillo MD Basophils/100 WBC (Bld) 1 % Normal 0-2 [facility] Comment on above: Performed By: #### C P, CDP, LIP #### [address] [place], [facility]83 Formulation Chemist: Zafar Castillo MD Eosinophils (Bld) [#/Vol] 0.11 10*3/uL Normal 0.00-0.44 [facility] Comment on above: Performed By: #### C P, CDP, LIP #### [address] [place], [place] [address] Formulation Chemist: Zafar Castillo MD Eosinophils/100 WBC (Bld) 1 % Normal 1-4 [facility] Comment on above: Performed By: #### C P, CDP, LIP #### [address] [place] [address] Formulation Chemist: Zafar Castillo MD Erythrocyte distribution width (RBC) [Ratio] 13.2 % Normal 11.8-14.4 [facility] Comment on above: Performed By: #### C P, CDP, LIP #### [address] [place] [address] Formulation Chemist: Zafar Castillo MD Hematocrit (Bld) [Volume fraction] 41.8 % Normal 36.3-47.1 [facility] Comment on above: Performed By: #### C P, CDP, LIP #### [address] [place] [address] Formulation Chemist: Zafar Castillo MD Hemoglobin (Bld) [Mass/Vol] 13.7 g/dL Normal 11.9-15.1 [facility] Comment on above: Performed By: #### C P, CDP, LIP #### [address] [place] [id number] Formulation Chemist: Zafar Castillo MD Immature granulocytes (Bld) [#/Vol] 0 % Normal 0 [facility] Comment on above: Performed By: #### C P, CDP, LIP #### [address] [place], [facility]83 Formulation Chemist: Zafar Castillo MD Lymphocytes (Bld) [#/Vol] 2.23 10*3/uL Normal 1.10-3.70 [facility] Comment on above: Performed By: #### C P, CDP, LIP #### [address] [place], [facility]83 Formulation Chemist: Zafar Castillo MD Lymphocytes/100 WBC (Bld) 24 % Normal 24-43 [facility] Comment on above: Performed By: #### C P, CDP, LIP #### [address] [place] [phone] Formulation Chemist: Zafar Castillo MD MCH (RBC) [Entitic mass] 32.6 pg Normal 25.2-33.5 [facility] Comment on above: Performed By: #### C P, CDP, LIP #### [address] [place] [phone] Formulation Chemist: Zafar Castillo MD MCHC (RBC) [Mass/Vol] 32.8 g/dL Normal 28.4-34.8 [facility] Comment on above: Performed By: #### C P, CDP, LIP #### [address] [place] [phone] Formulation Chemist: Zafar Castillo MD MCV (RBC) [Entitic vol] 99.5 fL Normal 82.6-102.9 [facility] Comment on above: Performed By: #### C P, CDP, LIP #### [address] [place] [phone] Formulation Chemist: Zafar Castillo MD Monocytes (Bld) [#/Vol] 0.72 10*3/uL Normal 0.10-1.20 [facility] Comment on above: Performed By: #### C P, CDP, LIP #### [address] [place] [phone] Formulation Chemist: Zafar Castillo MD Monocytes/100 WBC (Bld) 8 % Normal 3-12 [facility] Comment on above: Performed By: #### C P, CDP, LIP #### [facility] [address] [place], [place] [phone] Formulation Chemist: Zafar Castillo MD Neutrophil (Seg) 66 % High 36-65 [facility] Comment on above: Performed By: #### C P, CDP, LIP #### [facility] [address] [place], [place] [phone] Formulation Chemist: Zafar Castillo MD NRBC Automated 0.0 per 100 WBC Normal 0.0 [facility] Comment on above: Performed By: #### C P, CDP, LIP #### [facility] [address] [place], [place] [phone] Formulation Chemist: Zafar Castillo MD Platelet mean volume (Bld) [Entitic vol] 10.0 fL Normal 8.1-13.5 [facility] Comment on above: Performed By: #### C P, CDP, LIP #### [facility] [address] [place], [place] [phone] Formulation Chemist: Zafar Castillo MD Platelets (Bld) [#/Vol] 213 10*3/uL Normal 138-453 [facility] Comment on above: Performed By: #### C P, CDP, LIP #### [facility] [address] [place], [place] [phone] Formulation Chemist: Zafar Castillo MD RBC (Bld) [#/Vol] 4.20 10*6/uL Normal 3.95-5.11 [facility] Comment on above: Performed By: #### C P, CDP, LIP #### [facility] [address] [place], [place] [phone] Formulation Chemist: Zafar Castillo MD WBC (Bld) [#/Vol] 9.4 10*3/uL Normal 3.5-11.3 [facility] Comment on above: Performed By: #### C P, CDP, LIP #### [facility] [address] [place], [place] [phone] Formulation Chemist: Zafar Castillo MD Auto Diff Performed NOT REPORTED Normal [facility] Comment on above: Performed By: #### C P, CDP, LIP #### [facility] [address] [place], [place] [address] Formulation Chemist: Zafar Castillo MD Platelets (Bld) [#/Vol] NOT REPORTED Normal [facility] Comment on above: Performed By: #### C P, CDP, LIP #### [facility] [address] [place], [place] [address] Formulation Chemist: Zafar Castillo MD RBC morphology finding Nom (Bld) NOT REPORTED Normal [facility] Comment on above: Performed By: #### C P, CDP, LIP #### [facility] [address] [place], [place] [address] Formulation Chemist: Zafar Castillo MD WBC Morphology NOT REPORTED Normal [facility] Comment on above: Performed By: #### C P, CDP, LIP #### [facility] [address] [place], [facility]83 Formulation Chemist: Zafar Castillo MD Comp Metabolic Profon 2019 Bilirubin Ql (U) <0.10 Low 0.3-1.2 [facility] Comment on above: Performed By: #### C DP, LIP #### [facility] [address] [place], [place] [phone] Formulation Chemist: Zafar Castillo MD (cont.) [facility] Comment on above: Result Comment: Aver age GFR for 50-59 years old: 93 mL/min/1.73sq m Chronic Kidney Disease: <60 mL/min/1.73sq m Kidney failure: <15 mL/min/1.73sq m eGFR calculated using average adult body mass. Additional eGFR calculator available at: http://www.[employer]nic/multiple_crcl_2011.htm Performed By: #### C DP, LIP #### [facility] [address] [place], [place] [phone] Formulation Chemist: Zafar Castillo MD Albumin [Mass/Vol] 4.1 g/dL Normal 3.5-5.2 [facility] Comment on above: Performed By: #### C DP, LIP #### [facility] [address] [place], [place] [phone] Formulation Chemist: Zafar Castillo MD Albumin/Globulin [Mass ratio] 1.6 {ratio} Normal 1.0-2.5 [facility] Comment on above: Performed By: #### C DP, LIP #### [facility] [address] [place], [place] [phone] Formulation Chemist: Zafar Castillo MD Alkaline Phos 109 U/L High 35-104 [facility] Comment on above: Performed By: #### C DP, LIP #### [facility] [address] [place], [place] [phone] Formulation Chemist: Zafar Castillo MD ALT [Catalytic activity/Vol] 13 U/L Normal 5-33 [facility] Comment on above: Performed By: #### C DP, LIP #### [facility] [address] [place], [place] [phone] Formulation Chemist: Zafar Castillo MD Anion gap [Moles/Vol] 9 mmol/L Normal 9-17 [facility] Comment on above: Performed By: #### C DP, LIP #### [facility] [address] [place], [place] [phone] Formulation Chemist: Zafar Castillo MD AST [Catalytic activity/Vol] 22 U/L Normal <32 [facility] Comment on above: Performed By: #### C DP, LIP #### [facility] [address] [place], [place] 1065683 Formulation Chemist: Zafar Castillo MD BUN/CRE Ratio 13 Normal 9-20 [facility] Comment on above: Performed By: #### C DP, LIP #### [facility] [address] [place], [place] [phone] Formulation Chemist: Zafar Castillo MD Calcium [Mass/Vol] 9.2 mg/dL Normal 8.6-10.4 [facility] Comment on above: Performed By: #### C DP, LIP #### [facility] [address] [place], [place] [phone] Formulation Chemist: Zafar Castillo MD Chloride [Moles/Vol] 103 mmol/L Normal 98-107 [facility] Comment on above: Performed By: #### C DP, LIP #### [facility] [address] [place], [place] [phone] Formulation Chemist: Zafar Castillo MD CO2 [Moles/Vol] 24 mmol/L Normal 20-31 [facility] Comment on above: Performed By: #### C DP, LIP #### [facility] [address] [place], [place] [phone] Formulation Chemist: Zafar Castillo MD Creatinine [Mass/Vol] 0.63 mg/dL Normal 0.50-0.90 [facility] Comment on above: Performed By: #### C DP, LIP #### [facility] [address] [place], [place] [phone] Formulation Chemist: Zafar Castillo MD GFR, Amer >60 Normal >60 [facility] Comment on above: Performed By: #### C DP, LIP #### [facility] [address] [place], [place] [phone] Formulation Chemist: Zafar Castillo MD GFR,non Amer >60 Normal >60 [facility] Comment on above: Performed By: #### C DP, LIP #### [facility] [address] [place], [place] [phone] Formulation Chemist: Zafar Castillo MD Glucose [Mass/Vol] 92 mg/dL Normal 70-99 [facility] Comment on above: Performed By: #### C DP, LIP #### [facility] [address] [place], [place] [phone] Formulation Chemist: Zafar Castillo MD Potassium [Moles/Vol] 3.8 mmol/L Normal 3.7-5.3 [facility] Comment on above: Performed By: #### C DP, LIP #### [facility] [address] [place], [place] [phone] Formulation Chemist: Zafar Castillo MD Protein [Mass/Vol] 6.7 g/dL Normal 6.4-8.3 [facility] Comment on above: Performed By: #### C DP, LIP #### [facility] [address] [place], [place] [phone] Formulation Chemist: Zafar Castillo MD Sodium [Moles/Vol] 136 mmol/L Normal 135-144 [facility] Comment on above: Performed By: #### C DP, LIP #### [address] [place], [place] [phone] Formulation Chemist: Zafar Castillo MD Staging: Normal [facility] Comment on above: Result Comment: Stag e 1: Some kidney damage normal GFR Stage 2: Mild kidney damage GFR 60-89 Stage 3: Moderate kidney damage GFR 30-59 Stage 4: Severe kidney damage GFR 15-29 Stage 5: Severe kidney damage GFR <15 ESRD - chronic treatment by dialysis or transplant Performed By: #### C DP, LIP #### [facility] [address] [place], [place] [phone] Formulation Chemist: Zafar Castillo MD Urea nitrogen [Mass/Vol] 8 mg/dL Normal 6-20 [facility] Comment on above: Performed By: #### C DP, LIP #### [facility] [address] [place] [address] Formulation Chemist: Zafar Castillo MD Comprehensive Metabolic Pane [facility] 08-22-2019 Albumin [Mass/Vol] 4.1 g/dL 3.5 - 5.2 g/dL [place] Albumin/Globulin [Mass ratio] 1.6 {ratio} [place] ALP [Catalytic activity/Vol] 109 U/L High 35 - 104 U/L [place] ALT [Catalytic activity/Vol] 13 U/L 5 - 33 U/L [place] Anion gap [Moles/Vol] 9 mmol/L 9 - 17 mmol/L [place] AST [Catalytic activity/Vol] 22 U/L <32 [place] Bilirubin Ql (U) <0.10 Low 0.3 - 1.2 mg/dL [place] Bun/Cre Ratio 13 [place] Calcium [Mass/Vol] 9.2 mg/dL 8.6 - 10. 4 mg/dL [place] Chloride [Moles/Vol] 103 mmol/L 98 - 10 7 mmol/L [place] CO2 [Moles/Vol] 24 mmol/L 20 - 31 mmol/L [place] Creatinine [Mass/Vol] 0.63 mg/dL 0.5 - 0.9 mg/dL [place] GFR >60 >60 mL/min [place] GFR Non- >60 >60 mL/min [place] Glucose [Mass/Vol] 92 mg/dL 70 - 99 mg/dL [place] Interpretation and review of laboratory results Abnormal [place] Potassium [Moles/Vol] 3.8 mmol/L 3.7 - 5.3 mmol/L [place] Protein [Mass/Vol] 6.7 g/dL 6.4 - 8.3 g/dL [place] Sodium [Moles/Vol] 136 mmol/L 135 - 144 mmol/L [place] Urea nitrogen [Mass/Vol] 8 mg/dL 6 - 20 mg/dL [place] Lactic Acidon 08-22-2019 Lactate [Moles/Vol] 1.5 mmol/L Normal 0.5-2.2 [facility] Comment on above: Performed By: #### L ACTIC #### [facility] [address] [place] [address] Formulation Chemist: Zafar Castillo MD Lactate [Moles/Vol] NOT REPORTED Normal 0.7-2.1 [facility] Comment on above: Performed By: #### L ACTIC #### [facility] [address] [place] [address] Formulation Chemist: Zafar Castillo MD Lactic Acid, Plasmaon 2019 Lactate [Moles/Vol] 1.5 mmol/L 0.5 - 2. 2 mmol/L [place] Lactic Acid, Whole Blood NOT REPORTED 0.7 - 2.1 mmol/L [place] Lipaseon 08-22-2019 Lipase [Catalytic activity/Vol] 255 U/L Critically high 13-60 [facility] Comment on above: Performed By: #### C DP, LIP #### [facility] [address] [place] [address] Formulation Chemist: Zafar Castillo MD Interpretation and review of laboratory results Abnormal [place] Lipase [Catalytic activity/Vol] 255 U/L Critically high 13 - 60 U/L [place] Metabolic Panelon 08-22-2019 GFR/1.73 sq M predicted among non-blacks MDRD (S/P/Bld) [Vol rate/Area] [place] Comment on above: Average GFR for 50-5 9 years old: 93 mL/min/1.73sq m Chronic Kidney Disease: <60 mL/min/1.73sq m Kidney failure: <15 mL/min/1.73sq m eGFR calculated using average adult body mass. Additional eGFR calculator available at: http://www.[employer].Telnic/multiple_crcl_2012.htm Stage 1: Some kidney damage normal GFR Stage 2: Mild kidney damage GFR 60-89 Stage 3: Moderate kidney damage GFR 30-59 Stage 4: Severe kidney damage GFR 15-29 Stage 5: Severe kidney damage GFR <15 ESRD - chronic treatment by dialysis or transplant Urinalysis w/ Microon 2019 ----- Normal [facility] Comment on above: Performed By: #### C DP, LIP #### [facility] [address] [place], [place] [phone] Formulation Chemist: Zafar Castillo MD Acetoacetic Acid,Ur Negative Normal NEG [facility] Comment on above: Performed By: #### C DP, LIP #### [facility] [address] [place] [address] Formulation Chemist: Zafar Castillo MD Bilirubin, SemiQt,Ur Negative Normal [facility] Comment on above: Performed By: #### C DP, LIP #### [facility] [address] [place], [place] [phone] Formulation Chemist: Zafar Castillo MD Color (U) YELLOW Normal L [facility] Comment on above: Performed By: #### C DP, LIP #### [address] [place], [place] [phone] Formulation Chemist: Zafar Castillo MD Epithelial cells LM.HPF (Urine sed) [#/Area] 2 TO 5 Normal 0-25 [facility] Comment on above: Performed By: #### C DP, LIP #### [facility] [address] [place] [address] Formulation Chemist: Zafar Castillo MD Glucose Ql (U) Negative Normal NEG [facility] in Hospital Comment on above: Performed By: #### C DP, LIP #### [facility] [address] [place] [address] Formulation Chemist: Zafar Castillo MD Hemoglobin, Ur Negative Normal NEG [facility] Comment on above: Performed By: #### C DP, LIP #### [facility] [address] [place], [place] [phone] Formulation Chemist: Zafar Castillo MD Leukocyte esterase Test strip Ql (U) Negative Normal NEG [facility] Comment on above: Performed By: #### C DP, LIP #### [facility] [address] [place], [place] [phone] Formulation Chemist: Zafar Castillo MD Nitrite,Ur Negative Normal NEG [facility] Comment on above: Performed By: #### C DP, LIP #### [facility] [address] [place], [place] [phone] Formulation Chemist: Zafar Castillo MD pH (U) 6.0 [pH] Normal 5.0-9.0 [facility] Comment on above: Performed By: #### C DP, LIP #### [facility] [address] [place] [phone] Formulation Chemist: Zafar Castillo MD Protein Ql (U) Negative Normal NEG [facility] Comment on above: Performed By: #### C DP, LIP #### [facility] [address] [place], [place] [phone] Formulation Chemist: Zafar Castillo MD RBC (U) [#/Vol] None Normal 0-2 [facility] Comment on above: Performed By: #### C DP, LIP #### [facility] [address] [place], [place] [phone] Formulation Chemist: Zafar Castillo MD Specific gravity (U) [Rel density] <1.005 Low 1.010-1.020 [facility] Comment on above: Performed By: #### C DP, LIP #### [facility] [address] [place], [place] [phone] Formulation Chemist: Zafar Castillo MD Turbidity CLEAR Normal CLEAR [facility] Comment on above: Performed By: #### C DP, LIP #### [facility] [address] [place] [address] Formulation Chemist: Zafar Castillo MD Urobilinogen,Ur Normal Normal NORM [facility] Comment on above: Performed By: #### C DP, LIP #### [facility] [address] [place] [address] Formulation Chemist: Zafar Castillo MD WBC (U) [#/Vol] None Normal 0-5 [facility] Comment on above: Performed By: #### C DP, LIP #### [facility] [address] [place] [address] Formulation Chemist: Zafar Castillo MD Amorphous sediment LM Ql (Urine sed) NOT REPORTED Normal [facility] Comment on above: Performed By: #### C DP, LIP #### [address] [place] [address] Formulation Chemist: Zafar Castillo MD Bacteria LM.HPF (Urine sed) [#/Area] NOT REPORTED Normal [facility] Comment on above: Performed By: #### C DP, LIP #### [address] [place] [address] Formulation Chemist: Zafar Castillo MD Casts LM.LPF (Urine sed) [#/Area] NOT REPORTED Normal [facility] Comment on above: Performed By: #### C DP, LIP #### [facility] [address] [place] [address] Formulation Chemist: Zafar Castillo MD Comment NOT REPORTED Normal [facility] Comment on above: Performed By: #### C DP, LIP #### [facility] [address] [place] [address] Formulation Chemist: Zafar Castillo MD Crystals LM Nom (Urine sed) NOT REPORTED Normal [facility] Comment on above: Performed By: #### C DP, LIP #### [facility] [address] [place], [place] [phone] Formulation Chemist: Zafar Castillo MD Epithelial, Renal NOT REPORTED Normal 0 [facility] Comment on above: Performed By: #### C DP, LIP #### [facility] [address] [place], [place] [phone] Formulation Chemist: Zafar Castillo MD Mucus Strands NOT REPORTED Normal [facility] Comment on above: Performed By: #### C DP, LIP #### [facility] [address] [place], [place] [phone] Formulation Chemist: Zafar Castillo MD Other Observations NOT REPORTED Normal NREQ [facility] Comment on above: Performed By: #### C DP, LIP #### [facility] [address] [place], [place] [phone] Formulation Chemist: Zafar Castillo MD Trichomonas NOT REPORTED Normal [facility] Comment on above: Performed By: #### C DP, LIP #### [facility] [address] [place], [place] [phone] Formulation Chemist: Zafar Castillo MD Yeast LM Ql (Urine sed) NOT REPORTED Normal [facility] Comment on above: Performed By: #### C DP, LIP #### [facility] [address] [place], [place] [phone] Formulation Chemist: Zafar Castillo MD Urinalysis with Microscopico n 08-22-2019 Amorphous, UA NOT REPORTED None [facility] [place] Bacteria, UA NOT REPORTED None [facility] [place] Bilirubin Urine Negative NEGATIVE [facility] [place] Casts UA NOT REPORTED /LPF [facility] [place] Color, UA YELLOW YELLOW [facility] [place] Crystals, UA NOT REPORTED None /HPF [facility] [place] Epithelial Cells UA 2 TO 5 [facility] [place] Glucose, Ur Negative NEGATIVE [facility] [place] Interpretation and review of laboratory results Abnormal [facility] [place] Ketones Ql (U) Negative NEGATIVE [facility] [place] Leukocyte esterase Test strip Ql (U) Negative NEGATIVE [place] Mucus, UA NOT REPORTED None [place], [place] Nitrite, Urine Negative NEGATIVE [place], [place] Other Observations UA NOT REPORTED NOT REQ. M [place], [place] pH, UA 6.0 [place] Protein (U) [Mass/Vol] Negative NEGATIVE [place] RBC (U) [#/Vol] None [facility] [place] Renal Epithelial, UA NOT REPORTED 0 /HPF [place] Specific [place], UA <1.005 Low [place] Trichomonas, UA NOT REPORTED None [facility] [place] Turbidity UA CLEAR CLEAR [place] Urinalysis Comments NOT REPORTED [place] Urine Hgb Negative NEGATIVE [place] Urobilinogen, Urine Normal Normal [place] WBC, UA None [place] Yeast, UA NOT REPORTED None [place] CBC WITH AUTO DIFFERENTIALon 03-04-2018 Basophils Auto #/vol (Bld) 0.07 10*3/uL Invalid Interpretation Code [facility] Basophils/100 WBC Auto (Bld) 0.7 % Invalid Interpretation Code [facility] Eosinophils Auto #/vol (Bld) 0.09 10*3/uL Invalid Interpretation Code [facility] Eosinophils/100 WBC Auto (Bld) 0.9 % Invalid Interpretation Code [facility] Erythrocyte distribution width Auto Entitic volume (RBC) 12.8 % Invalid Interpretation Code 11.6 - 14.8 % [facility] Hematocrit Auto Volume Fraction (Bld) 45.0 % Invalid Interpretation Code 36 - 46 % [facility] Hemoglobin mass conc (Bld) 15.4 g/dL Invalid Interpretation Code 12 - 16 g/dL [facility] Immature granulocytes #/vol (Bld) 0.03 10*3/uL Invalid Interpretation Code [facility] Immature granulocytes/100 WBC (Bld) 0.30 % Invalid Interpretation Code [facility] Comment on above: The IG parameter is the percentage of metamyelocytes, myelocytes, and promyelocytes. Interpretation and review of laboratory results Abnormal Invalid Interpretation Code [facility] Lymphocytes Auto #/vol (Bld) 2.22 10*3/uL Invalid Interpretation Code [facility] Lymphocytes/100 WBC Auto (Bld) 21.0 % Invalid Interpretation Code [facility] MCH Auto Entitic mass (RBC) 33.6 pg Invalid Interpretation Code 26 - 34 pg [facility] MCHC Auto mass conc (RBC) 34.2 g/dL Invalid Interpretation Code 31 - 37 g/dL [facility] MCV Auto Entitic volume (RBC) 98.0 fL Invalid Interpretation Code 80 - 100 fL [facility] Monocytes Auto #/vol (Bld) 0.82 10*3/uL Invalid Interpretation Code [facility] Monocytes/100 WBC Auto (Bld) 7.8 % Invalid Interpretation Code [facility] Neutrophils Auto #/vol (Bld) 7.33 10*3/uL High [facility] Neutrophils/100 WBC Auto (Bld) 69.3 % Invalid Interpretation Code [facility] Nucleated RBC #/vol (Bld) 0.00 10*3/uL Invalid Interpretation Code [facility] Nucleated RBC/100 WBC Ratio (Bld) 0.0 % Invalid Interpretation Code [facility] Platelet mean volume Auto Entitic volume (Bld) 10.1 fL Invalid Interpretation Code 9 - 15.5 fL [facility] Platelets Auto #/vol (Bld) 254 10*3/uL Invalid Interpretation Code [facility] RBC Auto #/vol (Bld) 4.59 10*6/uL Invalid Interpretation Code [facility] WBC Auto #/vol (Bld) 10.56 10*3/uL Invalid Interpretation Code [facility] Chem 7on 03-04-2018 Anion gap 3 molar conc 15 mmol/L Invalid Interpretation Code 10 - 20 mmol/L [facility] Chloride molar conc 103 mmol/L Invalid Interpretation Code 98 - 108 mmol/L [facility] Creatinine mass conc 0.85 mg/dL Invalid Interpretation Code 0.4 - 1.1 mg/dL [facility] GFR/1.73 sq M predicted among non-blacks MDRD vol rate/area (S/P/Bld) The eGFR should be used for monitoring renal function only and not for medication dosing. Invalid Interpretation Code [facility] GFR/1.73 sq M.predicted CKD-EPI vol rate/area (S/P/Bld) 81 Invalid Interpretation Code >=60 mL/min/1.73 m2 [facility] Glucose mass conc 92 mg/dL Invalid Interpretation Code 65 - 99 mg/dL [facility] HCO3 molar conc 25 mmol/L Invalid Interpretation Code 21 - 32 mmol/L [facility] Potassium molar conc 4.4 mmol/L Invalid Interpretation Code 3.5 - 5.1 mmol/L [facility] Sodium molar conc 139 mmol/L Invalid Interpretation Code 135 - 145 mmol/L [facility] Urea nitrogen mass conc 7 mg/dL Low 8 - 25 mg/dL [facility] Urea nitrogen/Creatinine mass ratio 8.2 mg/mg Low [facility] Hepatic Function Panel (LFT) on 03-04-2018 Albumin mass conc 4.5 g/dL Invalid Interpretation Code 3.2 - 5.2 g/dL [facility] ALP enzyme act/vol 97 U/L Invalid Interpretation Code 40 - 150 U/L [facility] ALT enzyme act/vol 9 U/L Invalid Interpretation Code 0 - 40 U/L [facility] AST enzyme act/vol 15 U/L Invalid Interpretation Code 0 - 45 U/L [facility] Bilirubin mass conc mg/dL Invalid Interpretation Code 0 - 1.3 mg/dL [facility] Bilirubin.conjugated mass conc mg/dL Invalid Interpretation Code 0 - 0.4 mg/dL [facility] Interpretation and review of laboratory results Normal Invalid Interpretation Code [facility] Protein mass conc 7.2 g/dL Invalid Interpretation Code 6 - 8 g/dL [facility] Lipaseon 03-04-2018 Lipase enzyme act/vol 179 U/L High 15 - 65 U/L [facility] Otheron 03-04-2018 Extra Tube Hold for add-ons. Invalid Interpretation Code [facility] Comment on above: Auto resulted. Interpretation and review of laboratory results Abnormal Invalid Interpretation Code [facility] URINALYSISon 03-04-2018 Bacteria Auto Ql (U) Rare Abnormal None Se en /hpf [facility] Bilirubin Ql (U) Negative Invalid Interpretation Code Negative [facility] Clarity Refractometry automated Nom (U) Clear Invalid Interpretation Code Clear [facility] Color Auto Nom (U) Colorless Invalid Interpretation Code Colorless, Yellow [facility] Epithelial cells.squamous Auto #/area (Urine sed) 1 Invalid Interpretation Code [facility] Glucose Automated test strip mass conc (U) Negative Invalid Interpretation Code Negative mg/dL [facility] Hemoglobin Automated test strip Ql (U) Negative Invalid Interpretation Code Negative [facility] Interpretation and review of laboratory results Abnormal Invalid Interpretation Code [facility] Ketones mass conc (U) Negative Invalid Interpretation Code Negative mg/dL [facility] Leukocyte esterase Automated test strip Ql (U) Negative Invalid Interpretation Code Negative [facility] Nitrite Automated test strip Ql (U) Negative Invalid Interpretation Code Negative [facility] pH Test strip (U) 7.0 [pH] Invalid Interpretation Code [facility] Protein mass conc (U) Negative Invalid Interpretation Code Negative mg/dL [facility] RBC Auto #/area (Urine sed) 2 Invalid Interpretation Code [facility] Specific gravity Automated test strip Relative Density (U) 1.004 Low [facility] Urobilinogen Test strip Qn (U) <2.0 Invalid Interpretation Code <2.0 mg/dL [facility] WBC Auto #/area (Urine sed) <1 Invalid Interpretation Code [facility] Microscopic examination is performed on all urinalysis samples and only positive findings are reported. The test for blood on the chemical analytic portion of urinalysis may also be positive due to hemoglobinuria and myoglobinuria and if red blood cells are present they are quantified by microscopic examination. Invalid Interpretation Code [facility] BMPon 08-24-2017 Anion gap 18 mmol/L Invalid Interpretation Code 10 - 20 mmol/L [facility] Bicarbonate (HCO3) 27 mmol/L Invalid Interpretation Code 21 - 32 mmol/L [facility] BUN/Creatinine Ratio 10.1 mg/mg Invalid Interpretation Code 10.0 - 20.0 [facility] Calcium 10.6 mg/dL High 8.4 - 10.2 mg/dL [facility] Chloride 101 mmol/L Invalid Interpretation Code 98 - 108 mmol/L [facility] Creatinine 0.69 mg/dL Invalid Interpretation Code 0.4 - 1.1 mg/dL [facility] eGFR (non-black) 103 mL/min/{1.73_m2} Invalid Interpretation Code >=60 [facility] eGFR (non-black) The eGFR should be used for monitoring renal function only and not for medication dosing. Invalid Interpretation Code [facility] Glucose mass conc 105 mg/dL High 65 - 99 mg/dL [facility] Interpretation and review of laboratory results Abnormal Invalid Interpretation Code [facility] Potassium molar conc 4.1 mmol/L Invalid Interpretation Code 3.5 - 5.1 mmol/L [facility] Sodium 142 mmol/L Invalid Interpretation Code 135 - 145 mmol/L [facility] Urea nitrogen 7 mg/dL Low 8 - 25 mg/dL [facility] CBC Auto Differentialon 08-07 Basophils Auto #/vol (Bld) 0.08 K/mcL Invalid Interpretation Code 0.00 - 0.30 [facility] Basophils/100 WBC Auto (Bld) 0.6 % Invalid Interpretation Code [facility] Eosinophils 0.05 K/mcL Invalid Interpretation Code 0.00 - 0.50 [facility] Eosinophils/100 leukocytes 0.4 % Invalid Interpretation Code [facility] Erythrocyte distribution width Auto Entitic volume (RBC) 12.2 % Invalid Interpretation Code 11.6 - 14.8 % [facility] Erythrocytes (RBC) 4.60 M/mcL Invalid Interpretation Code 4.00 - 5.20 [facility] Hematocrit (HCT) 43.4 % Invalid Interpretation Code 36 - 46 % [facility] Hemoglobin mass conc (Bld) 15.2 g/dL Invalid Interpretation Code 12 - 16 g/dL [facility] Immature granulocytes #/vol (Bld) 0.05 K/mcL Invalid Interpretation Code 0.00 - 0.30 [facility] Immature granulocytes/100 WBC (Bld) 0.40 % Invalid Interpretation Code [facility] Comment on above: The IG parameter is the percentage of metamyelocytes, myelocytes, and promyelocytes. Lymphocytes 2.40 K/mcL Invalid Interpretation Code 0.90 - 4.00 [facility] Lymphocytes/100 leukocytes 18.1 % Invalid Interpretation Code [facility] MCH 33.0 pg Invalid Interpretation Code 26 - 34 pg [facility] MCHC mass conc (RBC) 35.0 g/dL Invalid Interpretation Code 31 - 37 g/dL [facility] MCV 94.3 fL Invalid Interpretation Code 80 - 100 fL [facility] Monocytes 0.85 K/mcL Invalid Interpretation Code 0.30 - 0.90 [facility] Monocytes/100 leukocytes 6.4 % Invalid Interpretation Code [facility] Neutrophils 9.81 K/mcL High 1.70 - 7.00 [facility] Neutrophils/100 WBC Auto (Bld) 74.1 % Invalid Interpretation Code [facility] Nucleated erythrocytes 0.00 K/mcL Invalid Interpretation Code 0.00 - 0.00 [facility] Nucleated erythrocytes/100 erythrocytes 0.0 % Invalid Interpretation Code [facility] Platelet mean volume (PMV) 10.0 fL Invalid Interpretation Code 9 - 15.5 fL [facility] Platelets 242 K/mcL Invalid Interpretation Code 150 - 400 [facility] WBC (Leukocytes) 13.24 K/mcL High 4.50 - 11.00 [facility] CBC w/ Diffon 08-24-2017 Creatinine The following orders were created for panel order CBC w/ Diff. Procedure Abnormality Status --------- ------ CBC Auto Differential[[id number] ] Abnormal Final result Please view results for these tests on the individual orders. Invalid Interpretation Code [facility] CT ABDOMEN PELVIS WITH IV CO [...] and demonstrated a prominent signal loss on [id number] images on MRI performed 09/06/2014, compatible with [...] ThuAug 24, 2017 4:03:34 PM EDT Normal [facility] Comment on above: Order Comment: Reaso n [...] and demonstrated a prominent signal loss on [id number] images on MRI performed 09/06/2014, compatible with [...] probably remain. 5. Small left adrenal adenoma. [employer] Workstation ID: [id number] Invalid Interpretation Code [employer] [facility] CT Abdomen Pelvis With IV Contrast Only [...] and demonstrated a prominent signal loss on [id number] images on MRI performed 09/06/2014, compatible with [...] suspicious focal osseous lesions. Invalid Interpretation Code [employer] [facility] CT Abdomen Pelvis With IV Contrast Only [...] probably remain. 5. Small left adrenal adenoma. [employer] Workstation ID: [id number] Invalid Interpretation Code [employer] [facility] Hepatic Function Panel (LFT) on 08-24-2017 Alanine aminotransferase (ALT) 14 U/L Invalid Interpretation Code 0 - 40 U/L [facility] Albumin 4.7 g/dL Invalid Interpretation Code 3.2 - 5.2 g/dL [facility] Alkaline phosphatase (ALP) 91 U/L Invalid Interpretation Code 40 - 150 U/L [facility] Aspartate aminotransferase (AST) 17 U/L Invalid Interpretation Code 0 - 45 U/L [facility] Bilirubin (conjugated) mg/dL Invalid Interpretation Code 0 - 0.4 mg/dL [facility] Bilirubin (total) mg/dL Invalid Interpretation Code 0 - 1.3 mg/dL [facility] Interpretation and review of laboratory results Normal Invalid Interpretation Code [facility] Protein 7.4 g/dL Invalid Interpretation Code 6 - 8 g/dL [facility] Lactic Acid, Plasmaon 2017 Lactate 1.0 mmol/L Invalid Interpretation Code 0.6 - 2 mmol/L [facility] Light Blue Topon 08-24-2017 Extra Tube Hold for add-ons. Invalid Interpretation Code [facility] Comment on above: Auto resulted. Lipaseon 08-24-2017 Lipase 51 U/L Invalid Interpretation Code 15 - 65 U/L [facility] [place] Topon 08-24-2017 [place] Top Invalid Interpretation Code [facility] [place] Drawon 08-24-2017 Creatinine The following orders were created for panel order [place] Draw. Procedure Abnormality Status --------- ------ Gold Top[[id number]] Final result Light Blue Top[[id number]] Final result [place] Top[[id number]] Final result Please view results for these tests on the individual orders. Invalid Interpretation Code [facility] Urinalysison 08-24-2017 Bilirubin Ql (U) Negative Invalid Interpretation Code Negative [facility] Blood, Urine Negative Invalid Interpretation Code Negative [facility] Interpretation and review of laboratory results Abnormal Invalid Interpretation Code [facility] Nitrite, Urine Negative Invalid Interpretation Code Negative [facility] Squamous Epithelial 5 /hpf High 0 - 4 [facility] Transitional Epithelial <1 Invalid Interpretation Code 0 - 1 /hpf [facility] Urine, bacteria in sediment Rare Abnormal None Seen /hpf [facility] Urine, clarity Hazy Abnormal Clear [facility] Urine, color Yellow Invalid Interpretation Code Colorless, Yellow [facility] Urine, erythrocytes 1 /hpf Invalid Interpretation Code 0 - 3 [facility] Urine, glucose presence Negative Invalid Interpretation Code Negative mg/dL [facility] Urine, ketones presence Negative Invalid Interpretation Code Negative mg/dL [facility] Urine, leukocyte esterase presence Negative Invalid Interpretation Code Negative [facility] Urine, pH 7.0 [pH] Invalid Interpretation Code 5.0 - 7.0 [facility] Urine, protein Negative Invalid Interpretation Code Negative mg/dL [facility] Urine, specific gravity 1.006 1 Invalid Interpretation Code 1.005 - 1.025 [facility] Urine, urobilinogen <2.0 Invalid Interpretation Code <2.0 mg/dL [facility] WBCs, Urine 1 /hpf Invalid Interpretation Code 0 - 5 [facility] Urinalysis Microscopic examination is performed on all urinalysis samples and only positive findings are reported. The test for blood on the chemical analytic portion of urinalysis may also be positive due to hemoglobinuria and myoglobinuria and if red blood cells are present they are quantified by microscopic examination. Invalid Interpretation Code [facility] BMPon 06-09-2017 Anion gap 18 mmol/L Invalid Interpretation Code 10 - 20 mmol/L [facility] Bicarbonate (HCO3) 21 mmol/L Invalid Interpretation Code 21 - 32 mmol/L [facility] BUN/Creatinine Ratio 11.0 mg/mg Invalid Interpretation Code 10.0 - 20.0 [facility] Calcium 10.2 mg/dL Invalid Interpretation Code 8.4 - 10.2 mg/dL [facility] Chloride 102 mmol/L Invalid Interpretation Code 98 - 108 mmol/L [facility] Creatinine 0.73 mg/dL Invalid Interpretation Code 0.4 - 1.1 mg/dL [facility] eGFR (non-black) The eGFR should be used for monitoring renal function only and not for medication dosing. Invalid Interpretation Code [facility] eGFR (non-black) 98 mL/min/{1.73_m2} Invalid Interpretation Code >=60 [facility] Glucose 80 mg/dL Invalid Interpretation Code 65 - 99 mg/dL [facility] Potassium 4.3 mmol/L Invalid Interpretation Code 3.5 - 5.1 mmol/L [facility] Sodium 137 mmol/L Invalid Interpretation Code 135 - 145 mmol/L [facility] Urea nitrogen 8 mg/dL Invalid Interpretation Code 8 - 25 mg/dL [facility] CBC Auto Differentialon 04-0 Basophils 0.07 K/mcL Invalid Interpretation Code 0.00 - 0.30 [facility] Basophils/100 leukocytes 0.7 % Invalid Interpretation Code [facility] Eosinophils 0.10 K/mcL Invalid Interpretation Code 0.00 - 0.50 [facility] Eosinophils/100 leukocytes 1.0 % Invalid Interpretation Code [facility] Erythrocytes (RBC) 4.75 M/mcL Invalid Interpretation Code 4.00 - 5.20 [facility] Erythrocytes (RBC) 0.00 K/mcL Invalid Interpretation Code 0.00 - 0.00 [facility] Hematocrit (HCT) 46.1 % High 36 - 46 % [facility] Hemoglobin (HGB) 16.1 g/dL High 12 - 16 g/dL [facility] IG Absolute 0.02 K/mcL Invalid Interpretation Code 0.00 - 0.30 [facility] IG Percent 0.20 % Invalid Interpretation Code [facility] Lymphocytes 1.75 K/mcL Invalid Interpretation Code 0.90 - 4.00 [facility] Lymphocytes/100 leukocytes 17.9 % Invalid Interpretation Code [facility] MCH 33.9 pg Invalid Interpretation Code 26 - 34 pg [facility] MCHC 34.9 g/dL Invalid Interpretation Code 31 - 37 g/dL [facility] MCV 97.1 fL Invalid Interpretation Code 80 - 100 fL [facility] Monocytes 0.88 K/mcL Invalid Interpretation Code 0.30 - 0.90 [facility] Monocytes/100 leukocytes 9.0 % Invalid Interpretation Code [facility] Neutrophils 6.98 K/mcL Invalid Interpretation Code 1.70 - 7.00 [facility] Neutrophils/100 leukocytes 71.2 % Invalid Interpretation Code [facility] Nucleated erythrocytes/100 erythrocytes 0.0 % Invalid Interpretation Code [facility] Platelet mean volume (PMV) 10.9 fL Invalid Interpretation Code 9 - 15.5 fL [facility] Platelets 223 K/mcL Invalid Interpretation Code 150 - 400 [facility] RDW-CA 12.8 % Invalid Interpretation Code 11.6 - 14.8 % [facility] WBC (Leukocytes) 9.80 K/mcL Invalid Interpretation Code 4.50 - 11.00 [facility] Interpretation and review of laboratory results Abnormal Invalid Interpretation Code [facility] CBC w/ Diffon 06-09-2017 Creatinine The following orders were created for panel order CBC w/ Diff. Procedure Abnormality Status --------- ------ CBC Auto Differential[[id number] ] Abnormal Final result Please view results for these tests on the individual orders. Invalid Interpretation Code [facility] Hepatic Function Panel (LFT) on 06-09-2017 Alanine aminotransferase (ALT) 10 U/L Invalid Interpretation Code 0 - 40 U/L [facility] Albumin 4.4 g/dL Invalid Interpretation Code 3.2 - 5.2 g/dL [facility] Alkaline phosphatase (ALP) 89 U/L Invalid Interpretation Code 40 - 150 U/L [facility] Aspartate aminotransferase (AST) 20 U/L Invalid Interpretation Code 0 - 45 U/L [facility] Bilirubin (conjugated) mg/dL Invalid Interpretation Code 0 - 0.4 mg/dL [facility] Bilirubin (total) mg/dL Invalid Interpretation Code 0 - 1.3 mg/dL [facility] Interpretation and review of laboratory results Normal Invalid Interpretation Code [facility] Protein 7.3 g/dL Invalid Interpretation Code 6 - 8 g/dL [facility] Lipaseon 06-09-2017 Lipase 50 U/L Invalid Interpretation Code 15 - 65 U/L [facility] [place] Draw[place] 06-09-2017 Creatinine The following orders were created for panel order [place] Draw. Procedure Abnormality Status --------- ------ Urine Container[[id number]] Final result Please view results for these tests on the individual orders. Invalid Interpretation Code [facility] Urinalysison 06-09-2017 Bilirubin, Urine Negative Invalid Interpretation Code Negative [facility] Blood, Urine Negative Invalid Interpretation Code Negative [facility] Calcium Many Abnormal None Seen /hpf [facility] Mucus, Urine Rare Invalid Interpretation Code None Seen, Rare /lpf [facility] Nitrite, Urine Negative Invalid Interpretation Code Negative [facility] RBCs, Urine 1 /hpf Invalid Interpretation Code 0 - 3 [facility] Squamous Epithelial 4 /hpf Invalid Interpretation Code 0 - 4 [facility] Urine, bacteria in sediment None Seen Invalid Interpretation Code None Seen /hpf [facility] Urine, clarity Cloudy Abnormal Clear [facility] Urine, color Yellow Invalid Interpretation Code Colorless, Yellow [facility] Urine, glucose presence Negative Invalid Interpretation Code Negative mg/dL [facility] Urine, ketones presence Trace Abnormal Negative mg/dL [facility] Urine, leukocyte esterase presence Negative Invalid Interpretation Code Negative [facility] Urine, pH 5.0 [pH] Invalid Interpretation Code 5.0 - 7.0 [facility] Urine, protein Negative Invalid Interpretation Code Negative mg/dL [facility] Urine, specific gravity 1.024 1 Invalid Interpretation Code 1.005 - 1.025 [facility] Urine, urobilinogen 2.0 mg/dL Abnormal <2.0 [facility] WBCs, Urine 1 /hpf Invalid Interpretation Code 0 - 5 [facility] Urinalysis Microscopic examination is performed on all urinalysis samples and only positive findings are reported. The test for blood on the chemical analytic portion of urinalysis may also be positive due to hemoglobinuria and myoglobinuria and if red blood cells are present they are quantified by microscopic examination. Invalid Interpretation Code [facility] Urine Containeron 06-09-2017 Urine Container Invalid Interpretation Code [facility] CBCon 05-15-2017 Erythrocytes (RBC) 3.76 M/mcL Low 4.00 - 5.20 [facility] Erythrocytes (RBC) 0.00 K/mcL Invalid Interpretation Code 0.00 - 0.00 [facility] Hematocrit (HCT) 37.1 % Invalid Interpretation Code 36 - 46 % [facility] Hemoglobin (HGB) 12.4 g/dL Invalid Interpretation Code 12 - 16 g/dL [facility] MCH 33.0 pg Invalid Interpretation Code 26 - 34 pg [facility] MCHC 33.4 g/dL Invalid Interpretation Code 31 - 37 g/dL [facility] MCV 98.7 fL Invalid Interpretation Code 80 - 100 fL [facility] Nucleated erythrocytes/100 erythrocytes 0.0 % Invalid Interpretation Code [facility] Platelet mean volume (PMV) 9.9 fL Invalid Interpretation Code 9 - 15.5 fL [facility] Platelets 197 K/mcL Invalid Interpretation Code 150 - 400 [facility] RDW-CA 12.6 % Invalid Interpretation Code 11.6 - 14.8 % [facility] WBC (Leukocytes) 7.55 K/mcL Invalid Interpretation Code 4.50 - 11.00 [facility] Comprehensive Metabolic Pane demetrio 05-15-2017 Alanine aminotransferase (ALT) 9 U/L Invalid Interpretation Code 0 - 40 U/L [facility] Albumin 3.3 g/dL Invalid Interpretation Code 3.2 - 5.2 g/dL [facility] Alkaline phosphatase (ALP) 73 U/L Invalid Interpretation Code 40 - 150 U/L [facility] Anion gap 15 mmol/L Invalid Interpretation Code 10 - 20 mmol/L [facility] Aspartate aminotransferase (AST) 13 U/L Invalid Interpretation Code 0 - 45 U/L [facility] Bicarbonate (HCO3) 23 mmol/L Invalid Interpretation Code 21 - 32 mmol/L [facility] Bilirubin (total) 0.2 mg/dL Invalid Interpretation Code 0 - 1.3 mg/dL [facility] BUN/Creatinine Ratio 9.4 mg/mg Low 10.0 - 20.0 [facility] Calcium 8.4 mg/dL Invalid Interpretation Code 8.4 - 10.2 mg/dL [facility] Chloride 108 mmol/L Invalid Interpretation Code 98 - 108 mmol/L [facility] Creatinine 0.64 mg/dL Invalid Interpretation Code 0.4 - 1.1 mg/dL [facility] eGFR (non-black) The eGFR should be used for monitoring renal function only and not for medication dosing. Invalid Interpretation Code [facility] eGFR (non-black) 107 mL/min/{1.73_m2} Invalid Interpretation Code >=60 [facility] Glucose 91 mg/dL Invalid Interpretation Code 65 - 99 mg/dL [facility] Potassium 4.0 mmol/L Invalid Interpretation Code 3.5 - 5.1 mmol/L [facility] Protein 5.3 g/dL Low 6 - 8 g/dL [facility] Sodium 142 mmol/L Invalid Interpretation Code 135 - 145 mmol/L [facility] Urea nitrogen 6 mg/dL Low 8 - 25 mg/dL [facility] Lipaseon 05-15-2017 Interpretation and review of laboratory results Normal Invalid Interpretation Code [facility] Lipase 31 U/L Invalid Interpretation Code 15 - 65 U/L [facility] Lipid Panelon 05-15-2017 Cholesterol 193 mg/dL Invalid Interpretation Code 100 - 199 mg/dL [facility] Cholesterol to HDL Ratio 7.1 {ratio} Invalid Interpretation Code [facility] HDL Cholesterol 27 mg/dL Low 40 - 59 mg/dL [facility] HDL Cholesterol 166 mg/dL Invalid Interpretation Code [facility] Interpretation and review of laboratory results Abnormal Invalid Interpretation Code [facility] LDL Cholesterol 108 mg/dL Invalid Interpretation Code 10 - 130 mg/dL [facility] Triglyceride 291 mg/dL High 30 - 150 mg/dL [facility] BMPon 05-14-2017 Anion gap 18 mmol/L Invalid Interpretation Code 10 - 20 mmol/L [facility] Bicarbonate (HCO3) 25 mmol/L Invalid Interpretation Code 21 - 32 mmol/L [facility] BUN/Creatinine Ratio 11.8 mg/mg Invalid Interpretation Code 10.0 - 20.0 [facility] Calcium 10.7 mg/dL High 8.4 - 10.2 mg/dL [facility] Chloride 102 mmol/L Invalid Interpretation Code 98 - 108 mmol/L [facility] Creatinine 0.68 mg/dL Invalid Interpretation Code 0.4 - 1.1 mg/dL [facility] LAB eGFR (non-black) The eGFR should be used for monitoring renal function only and not for medication dosing. Invalid Interpretation Code [facility] eGFR (non-black) 105 mL/min/{1.73_m2} Invalid Interpretation Code >=60 [facility] Glucose 86 mg/dL Invalid Interpretation Code 65 - 99 mg/dL [facility] Potassium 4.0 mmol/L Invalid Interpretation Code 3.5 - 5.1 mmol/L [facility] Sodium 141 mmol/L Invalid Interpretation Code 135 - 145 mmol/L [facility] Urea nitrogen 8 mg/dL Invalid Interpretation Code 8 - 25 mg/dL [facility] CBC Auto Differentialon 03-0 Basophils 0.09 K/mcL Invalid Interpretation Code 0.00 - 0.30 [facility] Basophils/100 leukocytes 0.8 % Invalid Interpretation Code [facility] Eosinophils 0.08 K/mcL Invalid Interpretation Code 0.00 - 0.50 [facility] Eosinophils/100 leukocytes 0.7 % Invalid Interpretation Code [facility] Erythrocytes (RBC) 0.00 K/mcL Invalid Interpretation Code 0.00 - 0.00 [facility] Erythrocytes (RBC) 4.96 M/mcL Invalid Interpretation Code 4.00 - 5.20 [facility] Hematocrit (HCT) 48.5 % High 36 - 46 % [facility] Hemoglobin (HGB) 16.6 g/dL High 12 - 16 g/dL [facility] IG Absolute 0.04 K/mcL Invalid Interpretation Code 0.00 - 0.30 [facility] IG Percent 0.40 % Invalid Interpretation Code [facility] Interpretation and review of laboratory results Abnormal Invalid Interpretation Code [facility] Lymphocytes 1.89 K/mcL Invalid Interpretation Code 0.90 - 4.00 [facility] Lymphocytes/100 leukocytes 17.7 % Invalid Interpretation Code [facility] MCH 33.5 pg Invalid Interpretation Code 26 - 34 pg [facility] MCHC 34.2 g/dL Invalid Interpretation Code 31 - 37 g/dL [facility] MCV 97.8 fL Invalid Interpretation Code 80 - 100 fL [facility] Monocytes 0.74 K/mcL Invalid Interpretation Code 0.30 - 0.90 [facility] Monocytes/100 leukocytes 6.9 % Invalid Interpretation Code [facility] Neutrophils 7.86 K/mcL High 1.70 - 7.00 [facility] Neutrophils/100 leukocytes 73.5 % Invalid Interpretation Code [facility] Nucleated erythrocytes/100 erythrocytes 0.0 % Invalid Interpretation Code [facility] Platelet mean volume (PMV) 9.8 fL Invalid Interpretation Code 9 - 15.5 fL [facility] Platelets 275 K/mcL Invalid Interpretation Code 150 - 400 [facility] RDW-CA 12.8 % Invalid Interpretation Code 11.6 - 14.8 % [facility] WBC (Leukocytes) 10.70 K/mcL Invalid Interpretation Code 4.50 - 11.00 [facility] CBC w/ Diffon 05-14-2017 Creatinine The following orders were created for panel order CBC w/ Diff. Procedure Abnormality Status --------- ------ CBC Auto Differential[[id number] ] Abnormal Final result Please view results for these tests on the individual orders. Invalid Interpretation Code [facility] CT ABDOMEN PELVIS WITH IV CO [...] appendix in the left lower pelvis.Workstation ID: [id number] by: ERROL ANN on ThuMay 14, 2017 4:08:10 PM ESTTranscribed by: ERROL ANN on ThuMay 14, 2017 4:08:10 PM ESTFinalized by: ERROL ANN on ThuMay 14, 2017 4:08:10 PM EST Normal [facility] Comment on above: Order Comment: Reaso n [...] at L1-L2 and L4-L5. Invalid Interpretation Code [employer] [facility] CT Abdomen Pelvis With IV Contrast Only Interface, Rad In [place]on Discoveryq - 05/14/2017 4:10 PM EST EXAMINATION: CT [...] in the left lower pelvis. Workstation ID: [id number] Invalid Interpretation Code [employer] [facility] CT Abdomen Pelvis With IV Contrast Only [...] in the left lower pelvis. Workstation ID: [id number] Invalid Interpretation Code [employer] [facility] Ruff Topon 05-14-2017 Extra Tube Hold for add-ons. Invalid Interpretation Code [facility] Hepatic Function Panel (LFT) on 05-14-2017 Alanine aminotransferase (ALT) 13 U/L Invalid Interpretation Code 0 - 40 U/L [facility] Albumin 4.8 g/dL Invalid Interpretation Code 3.2 - 5.2 g/dL [facility] Alkaline phosphatase (ALP) 102 U/L Invalid Interpretation Code 40 - 150 U/L [facility] Aspartate aminotransferase (AST) 20 U/L Invalid Interpretation Code 0 - 45 U/L [facility] Bilirubin (conjugated) mg/dL Invalid Interpretation Code 0 - 0.4 mg/dL [facility] Bilirubin (total) 0.2 mg/dL Invalid Interpretation Code 0 - 1.3 mg/dL [facility] Interpretation and review of laboratory results Normal Invalid Interpretation Code [facility] Protein 7.9 g/dL Invalid Interpretation Code 6 - 8 g/dL [facility] Lipaseon 05-14-2017 Lipase 137 U/L High 15 - 65 U/L [facility] [place] Topon 05-14-2017 [place] Top Invalid Interpretation Code [facility] [place] Drawon 05-14-2017 Creatinine The following orders were created for panel order [place] Draw. Procedure Abnormality Status --------- ------ Gold Top[[id number]] Final result Light Blue Top[[id number]] Final result Ruff Top[[id number]] Final result [place] Top[[id number]] Final result Please view results for these tests on the individual orders. Invalid Interpretation Code [facility] Urinalysison 05-14-2017 Bilirubin, Urine Negative Invalid Interpretation Code Negative [facility] Blood, Urine Negative Invalid Interpretation Code Negative [facility] Interpretation and review of laboratory results Abnormal Invalid Interpretation Code [facility] Mucus, Urine Rare Invalid Interpretation Code None Seen, Rare /lpf [facility] Nitrite, Urine Negative Invalid Interpretation Code Negative [facility] RBCs, Urine 2 /hpf Invalid Interpretation Code 0 - 3 [facility] Squamous Epithelial 3 /hpf Invalid Interpretation Code 0 - 4 [facility] Urine, bacteria in sediment Rare Abnormal None Seen /hpf [facility] Urine, clarity Clear Invalid Interpretation Code Clear [facility] Urine, color Yellow Invalid Interpretation Code Colorless, Yellow [facility] Urine, glucose presence Negative Invalid Interpretation Code Negative mg/dL [facility] Urine, ketones presence Negative Invalid Interpretation Code Negative mg/dL [facility] Urine, leukocyte esterase presence Negative Invalid Interpretation Code Negative [facility] Urine, pH 5.0 [pH] Invalid Interpretation Code 5.0 - 7.0 [facility] Urine, protein Negative Invalid Interpretation Code Negative mg/dL [facility] Urine, specific gravity 1.006 1 Invalid Interpretation Code 1.005 - 1.025 [facility] Urine, urobilinogen <2.0 Invalid Interpretation Code <2.0 mg/dL [facility] WBCs, Urine 1 /hpf Invalid Interpretation Code 0 - 5 [facility] Urinalysis Microscopic examination is performed on all urinalysis samples and only positive findings are reported. The test for blood on the chemical analytic portion of urinalysis may also be positive due to hemoglobinuria and myoglobinuria and if red blood cells are present they are quantified by microscopic examination. Invalid Interpretation Code [facility] Vital Signs Date Time Vital Sign Value Performing Clinician Facility 11-09-2022 16:30-0400 Diastolic blood pressure 81 mm[Hg] [facility] 11-09-2022 16:30-0400 Heart rate 78 /min [facility] 11-09-2022 16:30-0400 Respiratory rate 18 /min [facility] 11-09-2022 16:30-0400 SaO2% (BldA) [Mass fraction] 99 % [facility] 11-09-2022 16:30-0400 Systolic blood pressure 141 mm[Hg] [facility] 11-09-2022 13:47-0400 Body height 160.02 cm [facility] 11-09-2022 13:47-0400 Body temperature 98.2 [degF] [facility] 11-09-2022 13:47-0400 Body weight 54.2 kg [facility] 08-12-2022 13:15-0400 Diastolic blood pressure 68 mm[Hg] [...] 03-22-2022 16:51-0500 Diastolic blood pressure 61 mm[Hg] [facility] 03-22-2022 16:51-0500 Heart rate 98 /min [facility] 03-22-2022 16:51-0500 Respiratory rate 20 /min [facility] 03-22-2022 16:51-0500 SaO2% (BldA) [Mass fraction] 98 % [facility] 03-22-2022 16:51-0500 Systolic blood pressure 149 mm[Hg] [facility] 03-22-2022 14:59-0500 Body height 157.48 cm [facility] 03-22-2022 14:59-0500 Body temperature 97.9 [degF] [facility] 03-22-2022 14:59-0500 Body weight 56 kg [facility] 12-16-2021 11:53-0400 Body height 157.5 cm Sabrina [...] [facility] 10-09-2021 20:00-0400 Body temperature 98.3 [degF] [facility] 10-09-2021 20:00-0400 Diastolic blood pressure 68 mm[Hg] [facility] 10-09-2021 20:00-0400 Heart rate 86 /min [facility] 10-09-2021 20:00-0400 Respiratory rate 20 /min [facility] 10-09-2021 20:00-0400 SaO2% (BldA) [Mass fraction] 100 % [facility] 10-09-2021 20:00-0400 Systolic blood pressure 110 mm[Hg] [facility] 10-09-2021 14:19-0400 Body height 157.48 cm [facility] 10-09-2021 14:19-0400 Body weight 56.69 kg [facility] 10-04-2021 19:00-0400 Diastolic blood pressure 66 mm[Hg] [facility] 10-04-2021 19:00-0400 Heart rate 72 /min [facility] 10-04-2021 19:00-0400 Respiratory rate 16 /min [facility] 10-04-2021 19:00-0400 SaO2% (BldA) [Mass fraction] 96 % [facility] 10-04-2021 19:00-0400 Systolic blood pressure 110 mm[Hg] [facility] 10-04-2021 15:16-0400 Body temperature 97.9 [degF] [facility] 10-04-2021 15:15-0400 Body height 157.48 cm [facility] 10-04-2021 15:15-0400 Body weight 54.5 kg [facility] 09-25-2021 19:58-0400 Heart rate 82 /min [facility] 09-25-2021 18:04-0400 Body temperature 98.1 [degF] [facility] 09-25-2021 18:00-0400 Body height 157.48 cm [facility] 09-25-2021 18:00-0400 Body weight 55.5 kg [facility] 09-25-2021 18:00-0400 Diastolic blood pressure 107 mm[Hg] [facility] 09-25-2021 18:00-0400 Respiratory rate 18 /min [facility] 09-25-2021 18:00-0400 SaO2% (BldA) [Mass fraction] 98 % [facility] 09-25-2021 18:00-0400 Systolic blood pressure 141 mm[Hg] [facility] 08-11-2021 18:12-0400 Heart rate 86 /min [facility] 08-11-2021 18:00-0400 Diastolic blood pressure 69 mm[Hg] [facility] 08-11-2021 18:00-0400 Respiratory rate 20 /min [facility] 08-11-2021 18:00-0400 SaO2% (BldA) [Mass fraction] 98 % [facility] 08-11-2021 18:00-0400 Systolic blood pressure 114 mm[Hg] [facility] 08-11-2021 16:06-0400 Body height 170.18 cm [facility] 08-11-2021 16:06-0400 Body mass index (BMI) [Ratio] 19.6 kg/m2 [facility] 08-11-2021 16:06-0400 Body temperature 97.9 [degF] [facility] 08-11-2021 16:06-0400 Body weight 57 kg [facility] 03-19-2021 14:30-0500 Body height 157.48 cm Marya Ginty Other [employer] [facility] [employer] Other 03-19-2021 14:30-0500 Body mass index (BMI) [Ratio] 24.69 kg/m2 Marya Ginty Other [employer] Other 03-19-2021 14:30-0500 Body temperature 96 [degF] Marya Ginty Other [employer] Other 03-19-2021 14:30-0500 Body weight 61.24 kg Marya Ginty Other [employer] Other 03-19-2021 14:30-0500 Respiratory rate 63 /min Marya Ginty Other [employer] Other 03-19-2021 14:30-0500 SaO2% (BldA) [Mass fraction] 97 % Marya Almonte Other [employer] Other 03-26-2020 21:05-0500 Pulse Oximetry 100 % [facility] [place] 03-26-2020 21:01-0500 BP Diastolic 68 mm[Hg] [facility] , [place] 03-26-2020 21:01-0500 BP Systolic 152 mm[Hg] [facility] , [place] 03-26-2020 17:32-0500 BMI (Body Mass Index) 22.86 kg/m2 [facility] 03-26-2020 17:32-0500 Body weight 56.[address] [facility] , [place] 03-26-2020 17:32-0500 Height 157.5 cm [place], [place] 03-26-2020 17:32-0500 Pulse (Heart Rate) 90 /min [facility] 03-26-2020 17:32-0500 Respiratory Rate 18 /min [facility] [place] 03-26-2020 12:39-0500 Body Temperature 98.71 [degF] [facility] [place] 08-25-2019 08:30-0400 Body Temperature 98.01 [degF] Rajeev [facility] [employer] [place] 08-25-2019 08:30-0400 BP Diastolic 75 mm[Hg] [facility] [place] 08-25-2019 08:30-0400 BP Systolic 117 mm[Hg] Rajeev [facility] , [place] 08-25-2019 08:30-0400 Pulse (Heart Rate) 84 /min [facility] [place] 08-25-2019 08:30-0400 Pulse Oximetry 97 % Rajeev [facility] , [place] 08-25-2019 08:30-0400 Respiratory Rate 16 /min Rajeev [facility] [employer] [place] [facility] [place] 08-25-2019 05:30-0400 BMI (Body Mass Index) 25.88 kg/m2 Rajeev [facility] 08-25-2019 05:30-0400 Body weight 64.18 kg Rajeev Tinoco [place], [place] 08-22-2019 16:00-0400 Height 157.5 cm [facility] [place] 03-04-2018 13:09-0500 BP Diastolic 69 mm[Hg] [facility] 03-04-2018 13:09-0500 BP Systolic 108 mm[Hg] [facility] 03-04-2018 13:09-0500 Pulse (Heart Rate) 79 /min [facility] 03-04-2018 13:09-0500 Pulse Oximetry 99 % [facility] 03-04-2018 13:09-0500 Respiratory Rate 16 /min [facility] 03-04-2018 11:01-0500 BMI (Body Mass Index) 22.86 kg/m2 [facility] 03-04-2018 11:01-0500 Body Temperature 98.6 [degF] [facility] 03-04-2018 11:01-0500 Height 157.5 cm [facility] 03-04-2018 11:01-0500 Weight 56.7 kg [facility] 08-24-2017 20:58-0400 BP Diastolic 64 mm[Hg] Errol [facility] 08-24-2017 20:58-0400 BP Systolic 126 mm[Hg] [facility] 08-24-2017 20:58-0400 Pulse (Heart Rate) 67 /min Errol [facility] 08-24-2017 20:58-0400 Pulse Oximetry 98 % [facility] 08-24-2017 20:58-0400 Respiratory Rate 18 /min [facility] 08-24-2017 13:41-0400 BMI (Body Mass Index) 21.58 kg/m2 [facility] 08-24-2017 13:41-0400 Body Temperature 98.29 [degF] [facility] 08-24-2017 13:41-0400 Height 157.5 cm Errol [facility] 08-24-2017 13:41-0400 Weight 53.52 kg Errol Walton [facility] 06-09-2017 09:32-0400 BP Diastolic 73 mm[Hg] Joana Mendes [facility] 06-09-2017 09:32-0400 BP Systolic 106 mm[Hg] Joana Vaughn [facility] 06-09-2017 09:32-0400 Pulse (Heart Rate) 86 /min Joana Vaughn [facility] 06-09-2017 09:32-0400 Pulse Oximetry 99 % Joana Vaughn [facility] 06-09-2017 09:32-0400 Respiratory Rate 16 /min Joana Vaughn [facility] 06-09-2017 07:20-0400 BMI (Body Mass Index) 21.87 kg/m2 Joana [facility] 06-09-2017 07:20-0400 Body Temperature 98.4 [degF] Joana Vaughn [facility] 06-09-2017 07:20-0400 Height 157.5 cm Joana Vaughn [facility] 06-09-2017 07:20-0400 Weight 54.23 kg Joana [facility] 05-15-2017 08:11-0500 Body Temperature 98.01 [degF] David Paige [facility] 05-15-2017 08:11-0500 BP Diastolic 69 mm[Hg] David [facility] 05-15-2017 08:11-0500 BP Systolic 116 mm[Hg] David [facility] 05-15-2017 08:11-0500 Pulse (Heart Rate) 76 /min David [facility] 05-15-2017 08:11-0500 Pulse Oximetry 95 % David [facility] 05-15-2017 08:11-0500 Respiratory Rate 15 /min David Paige [facility] 05-14-2017 12:58-0500 BMI (Body Mass Index) 21.95 kg/m2 David [facility] 05-14-2017 12:58-0500 Height 157.5 cm [facility] 05-14-2017 12:58-0500 Weight 54.43 kg David [facility] Encounters Encounter Date Encounter Type Care Provider Facility Start: 11-09-2022 End: 11-09-2022 Emergency department patient visit Nicole Posadas Facility:[facility] Start: 11-09-2022 End: 11-09-2022 Emergency department patient visit [facility] Work Phone: Start: 08-12-2022 ambulatory [facility] Facility:[facility] Start: 08-12-2022 End: 08-12-2022 Subsequent hospital visit by physician Sabrina Dee MD, MPH Work Phone: [facility] Start: 06-16-2022 ambulatory [facility] Facility:[facility] Start: 06-16-2022 End: 06-16-2022 Office outpatient visit 40 minutes Sabrina Dee MD, MPH Work Phone: [facility] Comment on above: Osteoporosis without current pathological fracture, unspecified osteoporosis type (Primary Dx); Alcohol-induced chronic pancreatitis Start: 06-13-2022 End: 06-13-2022 ambulatory ARIC JANUSZ . Facility:[facility] Start: 03-29-2022 End: 03-29-2022 ambulatory ELENITA ROLLINS . Facility: Start: 03-22-2022 End: 03-22-2022 Emergency department patient visit Agustin Llanes Facility:[facility] Start: 03-22-2022 End: 03-22-2022 Emergency department patient visit [facility] Work Phone: Start: 03-19-2022 End: 03-19-2022 ambulatory MONIK PARKINSON . Facility: Start: 01-28-2022 ambulatory SABRINA hamiltonty:[facility] Start: 01-28-2022 End: 01-28-2022 Subsequent hospital visit by physician Sabrina Dee MD, MPH Work Phone: [facility] Start: 01-27-2022 ambulatory [facility] Facility:[facility] Start: 01-27-2022 End: 01-27-2022 Subsequent hospital visit by physician Sabrina Dee MD, MPH Work Phone: [facility] Comment on above: Arrived Start: 01-15-2022 End: 01-15-[address] HELLEN KITCHEN . Facility: Start: 12-19-2021 End: 12-19-2021 Emergency department patient visit Robb Burris Facility:[facility] Start: 12-16-2021 ambulatory [facility] Facility:[facility] Start: 12-16-2021 End: 12-16-2021 Office outpatient visit 25 minutes Sabrina Dee MD, MPH Work Phone: [facility] [place] Comment on above: Recurrent acute panc reatitis (Primary Dx); History of smoking 25-50 pack years; Alcohol-induced chronic pancreatitis; Epigastric pain; Encounter for screening colonoscopy Start: 12-13-2021 End: 12-14-2021 ambulatory NICK COY Facility:[facility] Start: 12-05-2021 End: 12-05-[address] RAJEEV COATES Facility:[facility] Start: 10-11-2021 End: 10-12-[address] RAJEEV COATES Facility:[facility] Start: 10-04-2021 End: 10-04-2021 Emergency department patient visit [facility] Start: 09-30-2021 End: 09-30-2021 ambulatory NAT MAXWELL . Facility:[facility] Start: 09-25-2021 End: 09-25-2021 Emergency department patient visit [facility] Start: 09-17-2021 End: 09-17-[address] RAJEEV COATES Facility:[facility] Start: 08-26-2021 End: 08-26-2021 ambulatory NICK COY Facility:[facility] Start: 08-22-2021 End: 08-22-[address] TRI HANSON Facility:[facility] Start: 08-13-2021 End: 08-13-2021 ambulatory AGUSTIN MADRIGAL Facility:[facility] Start: 08-11-2021 End: 08-11-2021 Emergency department patient visit [facility] Start: 07-31-2021 End: 07-31-2021 ambulatory YANNI FRASER Facility:[facility] Start: 07-19-2021 End: 07-19-2021 ambulatory LYNNE PERDOMO Facility:[facility] Start: 03-19-2021 End: 03-19-2021 ambulatory Marya Almonte Other [employer] Other Start: 03-19-2021 Office outpatient visit 15 minutes Marya Almonte [facility] Start: 05-22-2020 End: 05-22-2020 Orders Only Izabela Queen Rudy Work Phone: [facility] Start: 03-26-2020 Emergency department patient visit [facility] Start: 03-26-2020 End: 03-26-2020 Emergency department patient visit [facility] ED Comment on above: Acute biliary pancre atitis, unspecified complication status (Primary Dx) Start: 08-22-2019 End: 08-25-2019 Evaluation and management of inpatient [facility] Start: 08-22-2019 End: 08-25-2019 Evaluation and management of inpatient Rajeev Rudy [facility] Work Phone: [facility] Comment on above: Acute pancreatitis, unspecified complication status, unspecified pancreatitis type (Primary Dx); Pain of upper abdomen Start: 03-08-2018 End: 03-09-2018 Evaluation and management of inpatient [facility] Start: 03-04-2018 End: 03-04-2018 Patient encounter procedure [facility] Start: 03-04-2018 End: 03-04-2018 Emergency department patient visit Keerthi Britoon Work Phone: [phone] [place] [address] Emergency Department Comment on above: Acute on chronic see creatitis (HCC) (Primary Dx) Start: 08-24-2017 End: 08-24-2017 Emergency department patient visit [facility] Start: 08-24-2017 End: 08-24-2017 Emergency department patient visit Errol Walton Work Phone: [facility] Emergency Department Start: 06-09-2017 End: 06-09-2017 Emergency department patient visit [facility] Start: 06-09-2017 End: 06-09-2017 Emergency department patient visit Joana Mendes Work Phone: [facility] Emergency Department Start: 05-14-2017 End: 05-15-2017 Patient encounter procedure [facility] Start: 05-14-2017 End: 05-15-2017 Emergency department patient visit David Gibson Work Phone: [facility] Medical Observation Procedures Date Procedure Procedure Detail Performing Clinician Start: 11-09-2022 Computed tomography of abdomen and pelvis with contrast Start: 08-12-2022 UPPER EUS Sabrina Dee MD, MPH Work Phone: Start: 01-28-2022 UPPER EUS Sabrina Dee MD, MPH Work Phone: Start: 01-27-2022 Dxa bone density blair dy 1/> sites axial skel Sabrian Dee MD, MPH Work Phone: Start: 10-04-2021 [...] Start: 08-23-2019 INITIATE OXYGEN THER APY PROTOCOL RJAEEV TINOCO Start: 08-23-2019 Assay of lipase RAJEEV [...] Dee MD, MPH [address] [place] [address] [facility] [place] Start: 11-07-2022 Influenza vaccination INFLUENZA VACCINE (Season [...] Julia Tyler MD [address] [address] [facility] Endoscopy Department Start: 06-16-2022 End: 12-16-2022 Screening colonoscopy SCREENING COLONOSCOPY GI/Bronch Routine Encounter for screening colonoscopy Expected: 06/16/2022, Expires: 12/16/2022 [facility] Comment on above: Expected: 06/16/2022, Expires: 3 Start: 06-16-2022 End: 06-16-2022 Patient encounter procedure 06/16/2022 Office Visit Gastroenterology Sabrina Dee MD, MPH [address] [place] [address] [facility] [place] Start: 03-22-2022 Bacteria identified in Urine by Culture [facility] Start: 01-28-2022 End: 01-28-2022 Patient encounter procedure 01/28/2022 Appointment Endoscopy Sabrina Dee MD, MPH [address] [place] [address] [facility] Start: 01-28-2022 Subsequent hospital visit by physician 01/28/2022 Hospital Encounter Endoscopy Sabrina Dee MD, MPH [address] [place] [address] Arrived [facility] Comment on above: Arrived Start: 01-14-2022 [...] Start: 11-07-2021 Influenza vaccination INFLUENZA VACCINE (#1) [facility] Start: 10-09-2021 CT of abdomen and pelvis without contrast CT abdomen pelvis wo [facility] Start: 10-09-2021 End: 10-09-2021 Emergency department patient visit Departed Emergency [facility] Start: 11-13-2020 COVID-19 VACCINE (3 - Booster for Pfizer series) COVID-19 VACCINE (3 - Booster for Pfizer series) [facility] Start: 11-08-2019 Influenza vaccination [place] Start: 11-08-2019 Influenza vaccination given Sequential Influenza Vaccine (#1) [facility] Start: 06-21-2019 Administration of herpes zoster vaccine Zoster Vaccines (1 of 2) [facility] Start: 06-21-2019 Screening for malignant neoplasm of breast Breast cancer screen [place], [place] Start: 06-21-2019 Screening for malignant neoplasm of colon [place] Start: 06-21-2019 Screening for malignant neoplasm of lung LUNG CANCER SCREENING [facility] Start: 06-21-2019 Shingles Vaccine (1 of 2) Shingles Vaccine (1 of 2) [place] Start: 06-21-2019 Zoster vaccine hzv live for subcutaneous use ZOSTER (SHINGLES) VACCINE (1 of 2) [facility] Start: 11-07-2017 Influenza vaccination [facility] Start: 11-07-2016 Influenza vaccination SEQUENTIAL INFLUENZA VACCINE (#1) [facility] Start: 12-10-2014 Screening for malignant neoplasm of cervix PAP SMEAR [facility] Start: 2014 Screening for malignant neoplasm of colon COLORECTAL CANCER SCREENING DISCUSSION [facility] Start: 01-01-2013 Screening for malignant neoplasm of breast MAMMOGRAM SCREENING DISCUSSION [facility] Start: 01-01-2013 Screening mammography Mammogram [facility] Start: 2009 Lipid panel Lipid screen [place], [place] Start: 1990 Screening for malignant neoplasm of cervix [facility] Start: 1988 DTaP/Tdap/Td vaccine (1 - Tdap) DTaP/Tdap/Td vaccine (1 - Tdap) [place] Start: 1988 Third diphtheria, tetanus and acellular pertussis (DTaP) vaccination TDAP (ADULT) [facility] Start: 06-21-1987 Hepatitis C antibody, confirmatory test Hepatitis C Screening [facility] Start: 06-21-1987 Tetanus vaccination TETANUS [facility] Start: 1985 COVID-19 Vaccine (1 of 2) COVID-19 Vaccine (1 of 2) [facility] Start: 1984 HIV screening [facility] Start: 06-21-1975 Pneumococcal 0-64 years Vaccine (1 of 1 - PPSV23) Pneumococcal 0-64 years Vaccine (1 of 1 - PPSV23) [place] Start: 06-21-1975 PNEUMOCOCCAL VACCINE SERIES (1 - PCV) PNEUMOCOCCAL VACCINE SERIES (1 - PCV) [facility] Start: 1972 History and physical examination, annual for health maintenance Wellness Visit [facility] Start: 1969 Hepatitis B vaccination HEP B VACCINE (1 of 3 - 3-dose series) [facility] Start: 1969 Hepatitis C screening [facility] Start: 1969 Tetanus vaccination [facility] CBC auto differential CBC auto d ifferential Lab Routine Daily until discontinued starting 08/23/2019, 3 completed [place] Comment on above: Daily until discontinued starting 2019, [address] ABDOMEN PELVIS W IV CONTRAST Additional Contrast? None CT ABDOMEN PELVIS W IV CONTRAST Additional Contrast? None Imaging STAT 03/26/2020 3:01 PM EST [place] IgG Subclasses IgG Subclasses A dd-On 05/14/2017 2:06 PM EST [facility] Initiate Oxygen Therapy Protocol Initiate Oxygen Therapy Protocol Respiratory Care Routine Daily until discontinued starting 08/22/2019 [place] Comment on above: Daily until discontinued starting 2019 Lipase Lipase Lab Routi ne Daily until discontinued starting 08/23/2019, 3 completed [place] Comment on above: Daily until discontinued starting 2019, 3 completed Patient Education [facility] Work Phone: Patient referral [facility] Work Phone: End: 08-22-2019 Pulse Oximetry Spot Check Pulse Oximetry Spot Check Respiratory Care Routine One Time for 1 Occurrences starting 08/22/2019 until 08/22/2019 [facility], [place] Comment on above: One Time for 1 [...] Hospital Payers Date Payer Category Payer Self-pay [id number] 2019 Unknown [facility] MEDICA[facility] xxxxxxxxxxx 2019-Present [phone] CLAIMS DEPARTMENT [address] [place] [address] xxxxxxxxxxx [id number] 2017 Unknown [id number] 2017 Unknown 1969 Unknown [id number] 2.16.840.1.869581.3.579.2.900 1969 Unknown [id number] 2.16.840.1.464175.3.579.2.900 1969 Unknown [id number] 2.16.840.1.294119.3.579.2.900 1969 Unknown [id number] 2.16.840.1.797615.3.579.2.900 1969 Unknown [id number] 2.16.840.1.328154.3.579.2.900 1969 Unknown [id number] 2.16.840.1.564041.3.579.2.173 1969 Unknown [id number] 2.16.840.1.303074.3.579.2.173 1969 Unknown [id number] 2.16.840.1.185307.3.579.2.593 1969 Unknown [id number] 2.16.840.1.256096.3.579.2.593 1969 Unknown [id number] 2.16.840.1.558745.3.579.2.593 1969 Unknown [id number] 2.16.840.1.773831.3.579.2.593 1969 Unknown [id number] 2.16.840.1.045991.3.579.2.593 1969 Unknown [id number] 2.16.840.1.078501.3.579.2.593 1969 Unknown [id number] 2.16.840.1.672437.3.579.2.593 1969 Unknown [id number] 2.16.840.1.211165.3.579.2.593 1969 Unknown [id number] 2.16.840.1.363343.3.579.2.593 1969 Unknown [id number] 2.16.840.1.678241.3.579.2.593 1969 Unknown [id number] 2.16.840.1.920885.3.579.2.593 1969 Unknown [id number] 2.16.840.1.921584.3.579.2.593 1969 Unknown [id number] 2.16.840.1.147236.3.579.2.593 1969 Unknown [id number] 2.16.840.1.389716.3.579.2.593 1969 Unknown [id number] 2.16.840.1.786897.3.579.2.594 1969 Unknown [id number] 2.16.840.1.184402.3.579.2.594 1969 Unknown [id number] 2.16.840.1.712822.3.579.2.594 1969 Unknown [id number] 2.16.840.1.991375.3.579.2.594 1969 Unknown [id number] 2.16.840.1.425576.3.579.2.594 1969 Unknown [id number] 2.16.840.1.474532.3.579.2.594 1959 Medicaid [id number] 1959 Unknown [id number] Unknown [id number] 2.16.840.1.364357.3.579.2.531 Unknown [id number] 2.16.840.1.908319.3.579.2.531 Unknown [id number] 2.16840.1.479714.3.579.2.531 Social History Date Type Detail Facility Start: 06-09-2017 End: 12-16-2021 Tobacco smoking status ARIS Current every day smoker [facility] History of tobacco use Cigarette Smoker [facility] Start: 06-09-2017 End: 12-16-2021 Cigarettes smoked current (pack per day) - Reported [facility] Start: 1970 Sex Assigned At Not on file [facility] Start: 08-22-2019 End: 08-12-2022 Alcohol intake Current non-drinker of alcohol (finding) [place] Exposure to SARS-CoV -2 (event) Unable to assess [place] Start: 03-08-2018 End: 12-16-2021 Tobacco use and exposure Never used [employer] Start: 07-24-2014 Tobacco Comment Smokes < 1/2 p pd, smoker for 30+ years [facility] Start: 07-24-2014 Alcohol Comment Prior heavy dr carrillo, quit 8 years ago [facility] Sex Assigned At Sex Assigned At Bir [facility] [employer] Other Start: 09-25-2021 End: 11-09-2022 Tobacco smoking status ARIS Smoker (finding) [facility] Start: 1970 Sex Assigned At Female F [facility] Start: 05-09-2016 Alcohol Comment been sober [...] female seen in the pre-procedure area at [facility]. The indication for endoscopic evaluation includes: Alcohol-induced chronic pancreatitis PAST MEDICAL HISTORY: Past Medical History: Diagnosis Date Anemia Depression H. pylori infection Neutrophilic leukocytosis Pancreatitis SURGICAL HISTORY: Past Surgical History: Procedure Laterality Date EGD W/ ULTRASOUND N/A 12/01/2019 Laterality: N/A; Surgeon: Sabrina Dee MD, MPH; Location: [facility] EGD W/ ULTRASOUND N/A 04/23/2016 Laterality: N/A; Surgeon: Pineda Troy MD; Location: [facility] EGD W/ ULTRASOUND N/A 01/23/2016 Laterality: N/A; Surgeon: Pineda Troy MD; Location: [facility] CHANGE TUBE GASTROSTOMY N/A 08/20/2015 Laterality: N/A; Surgeon: Yanni Alonzo MD; Location: [facility] EGD DIAGNOSTIC N/A 06/25/2015 Laterality: N/A; Surgeon: Pineda Troy MD; Location: [facility] EGD W/ PLACEMENT OR REPLACEMENT PEG N/A 06/15/2015 Laterality: N/A; Surgeon: Curry Wilson MD; Location: [facility] EGD W/ INSERTION TUBE OR CATHETER N/A 06/13/2015 Laterality: N/A; Surgeon: Jose Ty MD; [facility] EGD W/ ULTRASOUND N/A 02/14/2015 Laterality: N/A; Surgeon: Pineda Troy MD; Location: [facility] CHOLECYSTECTOMY CHOLECYSTECTOMY, LAPAROSCOPIC HYSTERECTOMY MEDICATIONS: Current Outpatient Medications Medication Instructions Amitriptyline (ELAVIL) 25 mg, Oral, DAILY AT BEDTIME Ergocalciferol (VITAMIN D2) 50,000 Units, Oral, WEEKLY omeprazole (PRILOSEC) 20 mg, Oral, DAILY Pancreatic enzymes (Creon) 18971-[address] Particles capsule 48,000 Units, Oral, 3 TIMES DAILY WITH MEALS Current Outpatient Medications: omeprazole [address] capsule, Take 1 capsule by mouth daily., Disp: 30 capsule, Rfl: 6 amitriptyline 10 MG tablet, Take 2.5 tablets by mouth at bedtime., Disp: 30 tablet, Rfl: 11 ergocalciferol 1.25 MG (35848 UT) capsule, Take 1 capsule by mouth once a week for 8 doses., Disp: 8 capsule, Rfl: 0 Pancreatic enzymes (Creon) 52192-[address] Particles capsule, Take 2 [...] female seen in the pre-procedure area at [facility]. The indication for endoscopic evaluation includes: Alcohol-induced chronic pancreatitis PAST MEDICAL HISTORY: Past Medical History: Diagnosis Date Anemia Depression H. pylori infection Neutrophilic leukocytosis Pancreatitis SURGICAL HISTORY: Past Surgical History: Procedure Laterality Date EGD W/ ULTRASOUND N/A 12/01/2019 Laterality: N/A; Surgeon: Sabrina Dee MD, MPH; Location: [facility] EGD W/ ULTRASOUND N/A 04/23/2016 Laterality: N/A; Surgeon: Pineda Troy MD; Location: [facility] EGD W/ ULTRASOUND N/A 01/23/2016 Laterality: N/A; Surgeon: Pineda Troy MD; Location: [facility] CHANGE TUBE GASTROSTOMY N/A 08/20/2015 Laterality: N/A; Surgeon: Yanni Alonzo MD; Location: [facility] EGD DIAGNOSTIC N/A 06/25/2015 Laterality: N/A; Surgeon: Pineda Troy MD; Location: [facility] EGD W/ PLACEMENT OR REPLACEMENT PEG N/A 06/15/2015 Laterality: N/A; Surgeon: Curry Wilson MD; [facility] EGD W/ INSERTION TUBE OR CATHETER N/A 06/13/2015 Laterality: N/A; Surgeon: Jose Ty MD; [facility]: [facility] EGD W/ ULTRASOUND N/A 02/14/2015 Laterality: N/A; Surgeon: Pineda Troy MD; Location: [facility] CHOLECYSTECTOMY CHOLECYSTECTOMY, LAPAROSCOPIC HYSTERECTOMY MEDICATIONS: Current Outpatient Medications Medication Instructions Amitriptyline (ELAVIL) 25 mg, Oral, DAILY AT BEDTIME Ergocalciferol (VITAMIN D2) 50,000 Units, Oral, WEEKLY omeprazole (PRILOSEC) 20 mg, Oral, DAILY Pancreatic enzymes (Creon) 11503-[address] units [address] Particles capsule 48,000 Units, Oral, 3 TIMES DAILY WITH MEALS Current Outpatient Medications: omeprazole [address] capsule, Take 1 capsule by mouth daily., Disp: 30 capsule, Rfl: 6 amitriptyline 10 MG tablet, Take 2.5 tablets by mouth at bedtime., Disp: 30 tablet, Rfl: 11 ergocalciferol 1.25 MG (84764 UT) capsule, Take 1 capsule by mouth once a week for 8 doses., Disp: 8 capsule, Rfl: 0 Pancreatic enzymes (Creon) 87992-[address] units Cap [address] Particles capsule, Take 2 [...] paperwork and reviewed per MD and nurse. Healthcare Advisory Services Manager available.Diet and restrictions reviewed as well. Venous access removed no complications noted. Ok to d/c Anesthesia and procedural MD. documented in this encounter [facility] 08-12-2022 Nurse Surgical operation note PT Given discharge paperwork and reviewed per MD and nurse. Healthcare Advisory Services Manager available.Diet and restrictions reviewed as well. Venous access removed no complications noted. Ok to d/c Anesthesia and procedural MD. [facility] 06-16-2022 History of Presen t illness Narrative This Butadiene Compressor Operator verified the patients name and date of [...] for pain management 5. Prior evaluation at [facility] for [facility] and was not a candidate 6. Last CT was at [facility] in 05/2019: No calcification in [...] (human immunodeficiency virus infection), Hyperlipidemia, Hyperthyroidism, Hypothyroidism, MN (myocardial infarction), Migraine, PEGGY (obstructive sleep apnea), [...] amitriptyline 10 MG tablet, ergocalciferol 1.25 MG (40224 UT) capsule, and Pancreatic enzymes (Creon) 56601-[address] units [address] Particles capsule. Allergies: She [...] of understanding. Pt discharged via w/c with van driver from unit. Dr dee aware patient [...] of understanding. Pt discharged via w/c with van driver from unit. [facility] 01-28-2022 Note Formatting of this n ote might be different from the original. Dr dee aware patient ready for results [facility] 01-28-2022 Note Formatting of this n ote might be different from the original. Updated dr goins on patient pain and received new orders [facility] 01-28-2022 History and physical note ENDOSCOPIC PREPROCEDURE HISTORY AND PHYSICAL HISTORY OF PRESENT ILLNESS: Chioma Rainey is a 51 y.o. female seen in the preoprocedure area at [facility]. The indication for endoscopic evaluation includes: Recurrent acute pancreatitis PAST MEDICAL HISTORY: Past Medical History: Diagnosis Date Anemia Depression H. pylori infection Neutrophilic leukocytosis Pancreatitis SURGICAL HISTORY: Past Surgical History: Procedure Laterality Date EGD W/ ULTRASOUND N/A 12/01/2019 Laterality: N/A; Surgeon: Sabrina Dee MD, MPH; Location: [facility] EGD W/ ULTRASOUND N/A 04/23/2016 Laterality: N/A; Surgeon: Pineda Troy MD; Location: [facility] EGD W/ ULTRASOUND N/A 01/23/2016 Laterality: N/A; Surgeon: Pineda Troy MD; [facility] CHANGE TUBE GASTROSTOMY N/A 08/20/2015 Laterality: N/A; Surgeon: Yanni Alonzo MD; Location: [facility] EGD DIAGNOSTIC N/A 06/25/2015 Laterality: N/A; Surgeon: Pineda Troy MD; Location: [facility] EGD W/ PLACEMENT OR REPLACEMENT PEG N/A 06/15/2015 Laterality: N/A; Surgeon: Curry Wilson MD; Location: [facility] EGD W/ INSERTION TUBE OR CATHETER N/A 06/13/2015 Laterality: N/A; Surgeon: Jose Ty MD; Location: [facility] EGD W/ ULTRASOUND N/A 02/14/2015 Laterality: N/A; Surgeon: Pineda Troy MD; Location: [facility] CHOLECYSTECTOMY CHOLECYSTECTOMY, LAPAROSCOPIC HYSTERECTOMY MEDICATIONS: Current Outpatient Medications Medication Instructions amitriptyline (ELAVIL) 25 mg, Oral, DAILY AT BEDTIME ergocalciferol (VITAMIN D2) 50,000 Units, Oral, WEEKLY Pancreatic enzymes (Creon) 41725-[address] Particles capsule 48,000 Units, Oral, 3 TIMES DAILY WITH MEALS Current Outpatient Medications: amitriptyline 10 MG tablet, Take 2.5 tablets by mouth at bedtime., Disp: 30 tablet, Rfl: 11 Pancreatic enzymes (Creon) 26405-[address] Particles capsule, Take 2 capsules by mouth 3 times daily with meals., Disp: 180 capsule, Rfl: 0 ergocalciferol 1.25 MG (62607 UT) capsule, Take 1 capsule by mouth [...] female seen in the preoprocedure area at [facility]. The indication for endoscopic evaluation [...] 50,000 Units, Oral, WEEKLY Pancreatic enzymes (Creon) 94312-[address] Particles capsule 48,000 Units, Oral, 3 TIMES DAILY WITH MEALS Current Outpatient Medications: amitriptyline 10 MG tablet, Take 2.5 tablets by mouth at bedtime., Disp: 30 tablet, Rfl: 11 Pancreatic enzymes (Creon) 59909-[address] Particles capsule, Take 2 capsules by mouth 3 times daily with meals., Disp: 180 capsule, Rfl: 0 ergocalciferol 1.25 MG (73486 UT) capsule, Take 1 capsule by mouth [...] MD, MPH documented in this encounter [facility] 12-16-2021 History of Presen t illness [...] for pain management 5. Prior evaluation at [facility] for [facility] and was not a candidate 6. Last CT was at [facility] in 05/2019: No calcification in [...] (human immunodeficiency virus infection), Hyperlipidemia, Hyperthyroidism, Hypothyroidism, [place] (myocardial infarction), Migraine, PEGGY (obstructive sleep apnea), [...] 10 MG tablet and Pancreatic enzymes (Creon) 09300-[address] Particles capsule. Allergies: She [...] 6 months documented in this encounter [facility] 03-19-2021 Evaluation note Encounter Date Diagnosis [...] Patient care instructions given in writting by [facility] Care At Home document [employer] Other 08-01-2020 History general Narrative - Reported* Type Description Date Medical History chronic pancreatitis Medical History chronic pain Medical History former alcoholic Surgical History [facility]- [facility] Surgical History GALLBLADDER Surgical History COLON-[facility] Hospitalization History see above [employer] Other Evaluation noteNo assessment information available [facility] Work Phone: Evaluation note* Diagnosis Recurrent acute pancreatitis- Primary Acute pancreatitis History of smoking 25-50 pack years Alcohol-induced chronic pancreatitis Chronic pancreatitis Epigastric pain Abdominal pain, epigastric Encounter for screening colonoscopy Special screening for malignant neoplasms, colon [facility] Recurrent acute pancreatitis Acute pancreatitis History of smoking 25-50 pack years Encounter for screening colonoscopy Special screening for malignant neoplasms, colon [facility] Other osteoporosis without current pathological fracture- Primary Recurrent acute pancreatitis Acute pancreatitis Encounter for screening colonoscopy Special screening for malignant neoplasms, colon [facility] Encounter for screening colonoscopy Special screening for malignant neoplasms, [place] [facility] Osteoporosis without current pathological fracture, unspecified osteoporosis type- Primary Alcohol-induced chronic pancreatitis Chronic pancreatitis [facility] Alcohol-induced chronic pancreatitis Chronic pancreatitis [facility] Additional Instructions Fluids Phenergan if needed for nausea vomiting Bentyl as needed for abdominal pain Follow-up with your GI specialist call Thursday for appointment Return here if any problems persist or worsen [facility] Work Phone: Discharge Instructions * oJse Brown PA-C - 06/09/2017 Abdominal Pain: Care [...] Log into your personal health record on [email or web address] and enter E907 in the Education box to learn more about Abdominal Pain: Care Instructions. Current as of: August 03, 2015 Content Version: 11.2 1439-1362 [employer]. Care instructions adapted under license by your healthcare professional. If you have questions about a medical condition or this instruction, always ask your healthcare professional. [employer] disclaims any warranty or liability for your [...] Log into your personal health record on [email or web address] and enter H591 in the Education box to learn more about Nausea and Vomiting: Care Instructions. Current as of: August 03, 2015 Content Version: 11.2 1291-0092 [employer]. Care instructions adapted under license by your healthcare professional. If you have questions about a medical condition or this instruction, always ask your healthcare professional. [employer] disclaims any warranty or liability for your use of this information. Please review regarding your visit: Please note that your blood pressure during this ER visit was above 120/80 mmHg. YOUR BP READING WAS: 111/88 The [place] [employer] Association (AHA) defines a normal blood [...] review at your convenience for more information: http://[email or web address]/HEARTORG/Conditions/[email or web address]/[email or web address] in this encounter* Discharge Instr - Other Orders - Poncho Sparks RN - 05/15/2017 1:20 PM EST Patient voices desire to leave hospital AMA. IV removed. Patient is ambulatory in care of spouse. [facility] hospitalist notified. in this encounter* Montse Khan CNP - 08/24/2017 Seek medical attention if you have worsening symptoms or other concerns. Please follow up with your family doctor or one of your choosing. You may find a provider through the [facility] Physician Referral Service by calling [phone] ([phone]) or by visiting [email or web address] [place], Thank You for choosing [facility]! The following attachments cannot be sent through Care Everywhere. * Nausea and Vomiting (French) * Gastroenteritis (French) * Diarrhea (French) in this encounter The following attachments cannot be sent through Care Everywhere. * Pancreatitis (French) in this encounter* Instructions* Laura Meyer RN - 08/25/2019 Patient Instructions: Activity: activity as tolerated Diet: encourage fluids GI specialist in 2 weeks. * Attachments The following attachments cannot be sent through Care Everywhere. * Pancreatitis: Chronic Diet (French) * Pancreatitis (French) documented in this encounter Assessments Diagnosis Epigastric [...] FoundDocuments on File Type Date Recorded Patient Storeroom Attendant Expl anation Advance Directives and Living Will Power of Enterprise Resource Analyst Latest Code Status on File Code Status Date Activated Date Inactivated Comments Full Code 08/22/2019 4:27 PM Documents on File Type Date Recorded Patient Storeroom Attendant Expl anation Advance Directives and Livin g [...] Documents on File Type Date Recorded Patient Storeroom Attendant Expl anation ACP-Advance Directive ACP-Power of Enterprise Resource Analyst Latest Code Status on File Code Status [...] toradol is contraindicated. Called Dr. Hughes back, show card writer explained that patient is tolerating dilaudid. Dr. Hughes ordered dose of dilaudid increased from 0.25 mg to 0.5 mg q4 hrs PRN. * Ladan Stearns RN - 08/24/2019 1:27 PM EDT Patient walking in hallway at this time. * Ladan Stearns RN - 08/24/2019 9:14 AM EDT Para Professional to patients bedside at this time to reassess pain. Patient sitting in chair, appears restless and is tearful. Patient states Dilaudid did not help the pain, states there is nothing show card writer can do as she deals with [...] Scheduled for EGD in September with her Corporate Controller at [facility] Discharge Planning -- Home when stable Carley Camara APRN, DITCHER-C Associated attestation - Rajeev Tinoco MD - 08/24/2019 5:30 PM EDT Attending Supervising Physician s Attestation Statement I have personally evaluated and examined the patient [id number] in conjunction with the nurse practitioner. I [...] Examined and Reviewed plan of care with DITCHER. Directions and discussion about care and plans. [...] [place] RN - 08/23/2019 4:40 PM EDT Para Professional contacted Dr. Tinoco regarding update that patient [...] he would not give order for Benedryl. Para Professional let nurse know that if patient's c/o ithcing and redness doesn't improve in an hour, that show card writer will be calling back to update physician. * Brie Birmingham RN - 08/23/2019 3:20 PM EDT Para Professional called into patient's room d/t patient c/o itching, feeling hot , and slight redness noted to BUE and face. Para Professional contacted Dr. Tinoco office and left message with his nurse, asking for IV Benedryl and d/c of Lovenox. Patient thinks she may have had reaction to Lovenox in the past, and thatis the only other med she is currently taking here other than Dilaudid. Para Professional did once again verify that patient usually [...] medically stable. Patient lives with her in [place]. She uses no DME and has no outside services currently in place. Patient provides for her own transportation needs and manages her medications. She is independent with her ADL's. PCP is [facility]. Patient has [facility] and denies needing further assistance with the cost of her medications. Discharge plan is home with no additional services at this time. Patient is a 'Full Code' status. She has no healthcare directives and voices that she is not interested in pursuing these documents further. SOUND TECHNICIAN to monitor and assist with discharge planning [...] Birmingham RN - 08/23/2019 9:05 AM EDT Para Professional made WEIGHT REDUCING TECHNICIAN aware that patient is vomiting at this time since clear liquid diet added. Para Professional to give Zofran and place patient back [...] weight loss, but states of weight gain. [id number] Discussed need to re-zero Pt bed to verify gain. She declined education needs states she has a GI doctor and RDN at the [facility]. Reports following the guidelines they recommended. [...] 5. Fluid Accumulation-No significant fluid accumulation, 6. Process Excellence Manager Strength-Not measured Nutrition Risk Level: Moderate Nutrient Needs: Estimated Daily Total Kcal: 5266-5398(20-23/kg) Estimated Daily Protein (g): 65-75g(1.3-1.5g/kg) Estimated Daily [...] weight gain/23%, recommend to re-zero Pt bed [place] Body Wt: 110 lb (49.9 kg), % [place] Body 129% BMI Classification: BMI 25.0 - [...] Nausea or Vomiting, Patient/Family Education Contact Number: [phone] * Carley Camara, ALEA - WEIGHT REDUCING TECHNICIAN - 08/23/2019 7:30 AM EDT Progress Note [...] Daily Discharge Plan--later today/tomorrow Carley Camara APRN, DITCHER-C Associated attestation - Rajeev Tinoco MD - 08/23/2019 12:04 PM EDT Attending Supervising Physician s Attestation Statement I have personally evaluated and examined the patient [id number] in conjunction with the nurse practitioner. I [...] Examined and Reviewed plan of care with DITCHER. Directions and discussion about care and plans. Disposition including length of stay was reviewed. Nutritional status, advanced directive and old records reviewed. Disposition: trial of diet, reduce pain meds, improve activity The patient was seen examined with the nurse practitioner on August 23, 2019 all direct care was reviewed with the nurse practitioner at the bedside with the patient. Electronically signed by Rajeve Tinoco MD * Sandra Hernandez RN - 08/22/2019 8:28 PM EDT Pt requesting Dilaudid for 8/10 pain and phenergan for nausea. Meds given per orders. Will continueto monitor. * Brie Birmingham RN - 08/22/2019 3:55 PM EDT [facility]t ED in process of running a code on another patient; tour production supervisor states that report will be called when able. Para Professional unable to get ahold of staff inED to put patient in bowling floor manager so that show card writer can transfer patient over to [facility]. [...] Diagnoses Alcohol-induced chronic pancreatitis Procedures UPPER EUS NV ESOPHAGOGASTRODUODENOSCOPY US SCOPE W/ADJ Sabrina Tam MD, MPH [address] [place] [address] Referral ID Status Reason Start Date Expiration Date V isits Requested Visits Authorized [id number] New Request 06/16/2022 07/11/2023 1 1 Specialty Diagnoses / Procedures Referred By Zia espinal Referred To Contact Endocrinology, Diabetes & Metabolism Diagnoses Osteoporosis without current pathological fracture, unspecified osteoporosis type Sabrina Dee MD, MPH [address] [place] [phone] Referral ID Status Reason Start Date Expiration Date V isits Requested Visits Authorized [id number] New Request 06/16/2022 07/11/2023 1 1 Specialty Diagnoses / Procedures Referred By Contac t Referred To Contact Diagnoses Encounter for screening colonoscopy Procedures SCREENING COLONOSCOPY NV COLON CA SCRN NOT HI RSK IND Sabrina Dee MD, MPH [address] [place] [phone] Referral ID Status Reason Start Date Expiration Date V isits Requested Visits Authorized [id number] New Request 12/16/2021 01/10/2023 1 1 Specialty Diagnoses / Procedures Referred By Contac t Referred To Contact Diagnoses Recurrent acute pancreatitis History of smoking 25-50 pack years Procedures BONE DENSITY AXIAL (HIP, PELVIS, SPINE) Sabrina Dee MD, MPH [address] [place] [phone] Referral ID Status Reason Start Date Expiration Date V isits Requested Visits Authorized [id number] New Request 12/16/2021 01/10/2023 1 1 Specialty Diagnoses / Procedures Referred By Contac t Referred To Contact Diagnoses Recurrent acute pancreatitis Procedures UPPER EUS NV EGD US GUIDED TRANSMURAL INJXN/FIDUCIAL MARKER Sabrina Dee MD, MPH [address] [place] [phone] Referral ID Status Reason Start Date Expiration Date V isits Requested Visits Authorized [id number] New Request 12/16/2021 01/10/2023 1 1 Additional [...] the patient. I discussed the patient with DITCHER/PA. I agree with the DITCHER/PA treatment plan. I agree with the DITCHER/PA plan of care. I agree with the DITCHER/PA dispo as documented. 46-year-old female presents with abdominal pain. She states I have chronic pancreatitis and this feels like a flareup . States that she took her usual Phenergan and Astoria with minimal relief so came the emergency [...] She is going to follow with her network technical analyst with whom she has an appointment on [...] different from the original. ED PROVIDER NOTE [facility] NAME: Chioma Rainey AGE: 46 y.o. : 1970 VISIT DATE: 06/09/2017 CSN: [id number] PCP: Elie Nichols MD Chief Complaint Patient [...] Phenergan suppository. She states that she took Astoria last night. Last dose of Astoria was around 9 PM last night. She [...] Surgeon: Romain Dumont MD; Location: [facility]; Service: HYSTERECTOMY ORIF PELVIS ORTHOPEDIC SURGERY WISDOM [...] Yellow Clarity, Urine Cloudy (A) Clear Specific [place] 1.024 1.005 - 1.025 pH, Urine 5.0 [...] Phenergan suppositories. She has follow-up with her network technical analyst at [facility] in 2 weeks. Do not feel she [...] Information 1. Pineda Troy MD. Specialty: Gastroenterology [address] [place] [address] Contact information for after-discharge care Follow-up information has not been specified. New Prescriptions No medications on file (Please note that portions of this note may have been completed with a voice recognition software. Efforts were made to correct any errors, but occasionally words are mis-transcribed.) Jose Brown PA-C 06/09/17 0789 Pt states I have pancreatitis and I am having a flare up since last night . Pt relates mid abdominal pain that shoots into the left side of her back. Pt has been taking prescribed Astoria without relief and states she has been vomiting.in this encounter I personally interviewed the patient. I personally examined the patient. I discussed the patient with DITCHER/PA. I agree with the DITCHER/PA treatment plan. I agree with the DITCHER/PA plan of care. I agree with the DITCHER/PA dispo as documented. I saw evaluate this [...] different from the original. ED PROVIDER NOTE [facility]BS[facility] NAME: Chioma Rainey AGE: 46 y.o. : 1970 VISIT DATE: 05/14/2017 CSN: [id number] PCP: Elie Nichols MD Chief Complaint Patient [...] Surgeon: Romain Dumont MD; Location: [facility]; Service: HYSTERECTOMY ORIF PELVIS ORTHOPEDIC SURGERY WISDOM [...] Colorless, Yellow Clarity, Urine Clear Clear Specific [place] 1.006 1.005 - 1.025 pH, Urine 5.0 [...] in the left lower pelvis. Workstation ID: [id number] Procedures MDM This is a 46-year-old female [...] different from the original. ED PROVIDER NOTE [facility] NAME: Chioma Rainey AGE: 47 y.o. : 1970 VISIT DATE: 08/24/2017 CSN: [id number] PCP: Elie Nichols MD Chief Complaint Patient [...] Surgeon: Romain Dumont MD; Location: [facility]; Service: HYSTERECTOMY ORIF PELVIS ORTHOPEDIC SURGERY WISDOM [...] Yellow Clarity, Urine Hazy (A) Clear Specific [place] 1.006 1.005 - 1.025 pH, Urine 7.0 [...] probably remain. 5. Small left adrenal adenoma. [employer] Workstation ID: [id number] Procedures MDM 47-year-old female [...] she did vomit. She was then given NV Phenergan and a dose of Toradol. She [...] Medicine Why: follow up ER visit [address] [address] Contact information for after-discharge care Follow-up information [...] the patient. I discussed the patient with DITCHER/PA. I agree with the DITCHER/PA treatment plan. I agree with the DITCHER/PA plan of care. I agree with the DITCHER/PA dispo as documented. Formatting of this note may be different from the original. ED PROVIDER NOTE [facility] NAME: Chioma Rainey AGE: 47 y.o. : 1970 VISIT DATE: 03/04/2018 CSN: [id number] PCP: Elie Nichols MD Chief Complaint Patient [...] Surgeon: Romain Dumont MD; Location: [facility]; Service: HYSTERECTOMY ORIF PELVIS ORTHOPEDIC SURGERY WISDOM [...] Colorless, Yellow Clarity, Urine Clear Clear Specific [place] 1.004 (L) 1.005 - 1.025 pH, Urine [...] Condition Comment Hospitalize Attending Provider or Group: [facility] [[id number]] Phone call required?: No Follow-up Information Follow-up [...] different from the original. Adonis Negro MD [facility] Hospitalists History and Physical Patient Name:Chimoa Rainey MR #:[id number] :1970 Admit Date: [id number] Physicians: Elie Nichols [...] Surgeon: Romain Dumont MD; Location: [facility]; Service: HYSTERECTOMY ORIF PELVIS ORTHOPEDIC SURGERY WISDOM [...] Diagnoses Acute recurrent pancreatitis Rajeev Tinoco MD [address] [place] [address], [address] [place] [id number] [facility] Reason Comments Abdominal Pain Pt c/o [...] SPINE) Sabrina Dee MD, MPH [address] [place] [phone] Referral ID Status Reason Start Date Expiration Date V isits Requested Visits Authorized [id number] New Request 12/16/2021 01/10/2023 1 1 Specialty Diagnoses / Procedures Referred By Contmercedes espinal Referred To Contact Diagnoses Recurrent acute pancreatitis Procedures UPPER EUS NV EGD US GUIDED TRANSMURAL INJXN/FIDUCIAL MARKER Sabrina Dee MD, MPH [address] [place] [phone] Referral ID Status Reason Start Date Expiration Date V isits Requested Visits Authorized [id number] New Request 12/16/2021 01/10/2023 1 1 Specialty Diagnoses / Procedures Referred By Contac t Referred To Contact Diagnoses Encounter for screening colonoscopy Procedures SCREENING COLONOSCOPY NV COLON CA SCRN NOT HI RSK IND Sabrina Dee MD, MPH [address] [place] [address] Referral ID Status Reason Start Date Expiration Date V isits Requested Visits Authorized [id number] New Request 12/16/2021 01/10/2023 1 1 Reason Comments Follow-up 6 month follow up Specialty Diagnoses / Procedures Referred By Contac t Referred To Contact Diagnoses Alcohol-induced chronic pancreatitis Procedures UPPER EUS NV ESOPHAGOGASTRODUODENOSCOPY US SCOPE W/ADJ STRXRS Sabrina Dee MD, MPH [address] [place] [address] Referral ID Status Reason Start Date Expiration Date V isits Requested Visits Authorized [id number] New Request 06/16/2022 07/11/2023 1 1 INFORMATION SOURCE (unrecogn ized section and content) DATE CREATED AUTHOR 03/09/2018 [facility] DATE CREATED AUTHOR AUTHOR'S ORGANIZ ATION 03/28/2020 [facility] DATE CREATED AUTHOR AUTHOR'S ORGANIZ ATION 04/08/2021 [facility] DATE CREATED AUTHOR AUTHOR'S ORGANIZ ATION 06/18/2022 [facility] DATE CREATED AUTHOR AUTHOR'S ORGANIZ ATION 08/17/2022 [facility] DATE CREATED AUTHOR AUTHOR'S ORGANIZ ATION 11/28/2022 [facility] Care Teams (unrecognized sec tion and content) [...] Active Christa Lopez PA-C Emergency Provider Active Process Technician Relationship Specialty Start Date End Date Pineda Troy MD [address] [place] [phone] PCP - Referring 1 Gastroenterology 09/25/17 [facility], Other [address] [place] [facility] [address] PCP - General 11/28/19 Process Technician Relationship Specialty Start Date End Date Pineda Troy MD [address] [place] [phone] PCP - Referring 1 Gastroenterology 09/25/17 [facility], Other [address] [place] [facility] [place] [address] PCP - General 11/28/19 Process Technician Relationship Specialty Start Date End Date Pineda Troy MD [address] [place] [phone] PCP - Referring 1 Gastroenterology 09/25/17 [facility], Other [address] [place] [facility] [place] [address] PCP - General 11/28/19 Process Technician Relationship Specialty Start Date End Date Pineda Troy MD [address] [place] [phone] PCP - Referring 1 Gastroenterology 09/25/17 [facility], Other [address] [place] [facility] [place] [address] PCP - General 11/28/19 Team Status: Inactive Member Role Status Dates NON STAFF Primary Care Provider Active Agustin Llanes MD Emergency Provider Active Process Technician Relationship Specialty Start Date End Date Pineda Troy MD [address] [place] [phone] PCP - Referring 1 Gastroenterology 09/25/17 [facility], Other [address] [place] [facility] [address] PCP - General 11/28/19 Process Technician Relationship Specialty Start Date End Date Pineda Troy MD [address] [place] [phone] PCP - Referring 1 Gastroenterology 09/25/17 [facility], Other [address] [place] [facility] [place] [address] PCP - General 11/28/19 Team Status: Inactive [...] BE BASED ON THE PRIMARY CLINICAL RECORDS. [facility]. provides no warranty or guarantee of the accuracy or completeness of information in this document.
[2023-03-25] MEDS: FAMOTIDINE/PF 20 MG/2 ML VIAL IV (17:45)
[2023-03-25] MEDS: ONDANSETRON PF 4 MG/2 ML VIAL IV ×2 (17:45→20:09)
[2023-03-25] MEDS: HYDROMORPHONE HCL 1 MG/ML CARTRIDGE IV ×2 (17:45→20:09)
--- NOTE | 2023-03-25 17:45 | CT_ITS ---
[address] [address] Patient Name: CHIOMA BOUDREAUX MRN: [id number] date: 1970 Sex: F Assigned Patient Location: ED.MAIN Current Patient Location: Accession/Order Number: [id number] Exam Date: 03/25/2023 19:10 Report Date: 03/25/2023 20:33 At the request of: LUCRETIA SOLIMAN Procedure: CT abdomen pelvis w con Indication: Abdominal pain. Comparison: 03/16/2023 exam and 11/02/2022 exam. Procedure: Axial images were made from the diaphragms through the symphysis pubis. No oral contrast was given prior to scanning. Intravenous contrast was given. Dose reduction techniques were achieved by using automated exposure control and/or adjustment of mA and/or kV according to patient size and/or use of iterative reconstruction technique. Findings: Liver/Biliary System: No liver masses. Status postcholecystectomy. Stable dilated common bile duct measuring 15 mm. The common bile duct diameter although beyond the threshold for postcholecystectomy CBD (10 mm), it did not change compared to 11/02/2022 exam. Please correlate with bilirubin level. Pancreas/Spleen: Stable mild diffusely dilated pancreatic duct measuring 5 mm. No evidence of acute pancreatitis. No pancreatic calcifications. No pancreatic masses. No splenomegaly or splenic lesions. Kidneys/Adrenals: Normal symmetrical nephrograms. No renal masses. No renal or ureteral stones are seen. No hydronephrosis or hydroureter bilaterally. Stable 1.4 cm left adrenal nodule, probably adenoma. No right adrenal nodules. Aorta/Vessels: No evidence of aortic aneurysm. Patent IVC, renal veins, hepatic veins and portal venous system. Bowel/Fluid/Nodes: No bowel dilatation or bowel wall thickening. No evidence of bowel obstruction. Colonic diverticulosis with no evidence of diverticulitis. A new small hiatus hernia. No ascites or fluid collections. No adenopathy. Lung bases: Clear. Other findings: No aggressive osseous lesions are seen. Pelvis: No pelvic masses or adenopathy. No free fluid seen in the pelvis. Status post hysterectomy. Bladder is unremarkable. Other Findings: No aggressive osseous lesions are seen. CT/CT abdomen pelvis w con Impression: 1. Colonic diverticulosis with no evidence of diverticulitis. 2. Status postcholecystectomy. Stable dilated common bile duct measuring 15 mm. Although the common bile duct diameter is beyond the threshold for postcholecystectomy CBD (10 mm), it did not change compared to 11/02/2022 exam. Please correlate with bilirubin level. 3. Stable mild diffuse dilatation of pancreatic duct measuring 5 mm. No evidence of acute pancreatitis. 4. Stable 1.4 cm left adrenal nodule, probably adenoma. Electronically authenticated by: PEDRO SOLIS Date: 03/25/2023 20:33
--- NOTE | 2023-03-25 17:46 | ED.ABDPAIN1 ---
HPI - Abdominal Pain General Chief Complaint: Abdominal Pain Stated Complaint: Abdominal Pain Time Seen by Provider: 03/25/23 17:24 Source: patient Mode of arrival: Wheelchair Limitations: no limitations History of Present Illness HPI narrative: Is a 52-year-old female well-known to this emergency department for history of chronic pancreatitis presents to the ER with worsening pain over the last 2 days. She was seen by myself 2 weeks ago and was also seen in this ER 9 days ago for the same pain. She states today she is having worsening pain, left flank pain as well as uncontrolled vomiting. Her CT scan 9 days ago was performed without contrast and showed questionable abnormalities of the pancreas requiring ERCP versus MRCP. Patient was supposed to go to [place] to her GI appointment after leaving this emergency department 9 days ago but she did not go to the appointment because she came to the ER instead. Her states they could not make it. She has not had any fevers. No medications taken prior to arrival. Related Data Home Medications Medication Instructions Recorded Confirmed ergocalciferol (vitamin D2) 1,250 50,000 unit PO .weekly 08/27/22 03/16/23 mcg (50,000 unit) capsule (Vitamin D2) [id number] 2 cap PO BID 08/27/22 03/16/23 6,000-19,000-30,000 unit capsule,delayed rel (Creon) Previous Rx's Medication Instructions Recorded oxycodone-acetaminophen 5 mg-325 1 tab PO Q6H PRN pain #10 tabs 08/27/22 mg tablet (Percocet) promethazine 25 mg tablet 25 mg PO Q6H PRN nausea and 08/27/22 vomiting #12 tabs hydrocodone 5 mg-acetaminophen 325 1 tab PO Q6H PRN pain #8 tabs 10/14/22 mg tablet albuterol sulfate 90 mcg/actuation 2 inh inhalation QID PRN shortness 11/20/22 aerosol inhaler (ProAir HFA) of breath or wheezing #8.5 grams guaifenesin 600 mg tablet, 600 mg PO Q12H PRN cough #10 tabs 11/20/22 extended release 12 hr (Mucinex) hydrocodone 5 mg-acetaminophen 325 1 tab PO Q4H PRN pain #6 tabs 01/16/23 mg tablet oxycodone-acetaminophen 5 mg-325 1 tab PO Q6H PRN pain 4 days #15 03/07/23 mg tablet (Percocet) tabs sucralfate 1 gram tablet (Carafate) 1 g PO Q6H PRN abdominal pain #12 03/07/23 tabs famotidine 20 mg tablet (Pepcid) 20 mg PO BID #10 tabs 03/25/23 ondansetron 4 mg disintegrating 4 mg PO Q6H PRN nausea and 03/25/23 tablet vomiting #12 tabs oxycodone-acetaminophen 5 mg-325 1 tab PO Q6H PRN pain 2 days #10 03/25/23 mg tablet (Percocet) tabs Allergies Allergy/AdvReac Type Severity Reaction Status Date / Time haloperidol [From Haldol] Allergy Intermediate Hives Verified 03/25/23 17:36 ibuprofen [From Motrin] Allergy Intermediate Hives Verified 03/25/23 17:36 tramadol Allergy Intermediate Hives Verified 03/25/23 17:36 Penicillins Allergy Unknown Verified 03/25/23 17:36 ketorolac [From Toradol] AdvReac Severe Hives Verified 03/16/23 05:33 fentanyl AdvReac Intermediate Verified 03/16/23 05:33 Review of Systems ROS Constitutional Denies: fever or chills Ears, nose, mouth, and throat Denies: throat pain or nasal congestion Respiratory Denies: shortness of breath Gastrointestinal Reports: abdominal pain, nausea, vomiting and diarrhea Genitourinary Denies: painful urination Musculoskeletal Denies: back pain Integumentary/Breast Denies: rash Neurological Denies: headache Hematologic/Lymphatic Denies: easy bruising PFSH PFSH Social History Smoking status: Heavy tobacco smoker Exam Narrative Exam Narrative: Gen.: Awake, alert, in no distress Head: Normocephalic, atraumatic ENT: Moist mucous membranes Respiratory: No respiratory distress, lungs clear bilaterally Cardio: Regular rate and rhythm Gastrointestinal: Abdomen is soft, nondistended and Diffusely tender to palpation in the epigastrium, bilateral lower quadrants of the abdomen and left flank. No guarding or rebound Extremities: Moves extremities equally Psych: Normal mood and affect Neuro: No focal neuro deficit Skin: Warm, dry, intact Constitutional Vital Signs, click to edit/add: Last Vital Signs Temp 98.3 F 03/25/23 17:26 Pulse 100 H 03/25/23 21:42 Resp 18 03/25/23 21:42 BP 123/80 03/25/23 21:42 Pulse Ox 95 03/25/23 21:42 O2 Del Method Room Air 03/25/23 17:26 Course Vital Signs Vital signs: Vital Signs Temperature 98.3 F 03/25/23 17:26 Pulse Rate 119 H 03/25/23 17:26 Respiratory Rate 20 03/25/23 17:26 Blood Pressure 124/92 H 03/25/23 17:26 Pulse Oximetry 97 03/25/23 17:26 Oxygen Delivery Method Room Air 03/25/23 17:26 Temperature 98.3 F 03/25/23 17:26 Pulse Rate 100 H 03/25/23 21:42 Respiratory Rate 18 03/25/23 21:42 Blood Pressure 123/80 03/25/23 21:42 Pulse Oximetry 95 03/25/23 21:42 Oxygen Delivery Method Room Air 03/25/23 17:26 MDM - Abdominal Pain MDM Narrative Medical decision making narrative: Patient was medicated for pain with IV fluids, Dilaudid, Pepcid, Zofran. She had improvement with these medications, she did request additional medication for pain. Her lab studies show mild leukocytosis, otherwise unremarkable LFTs and bilirubin. Amylase and lipase are normal. CT of the abdomen and pelvis with IV contrast shows chronically dilated common bile duct and pancreatic duct. These are unchanged findings from previous CT. Based on the patient's multiple visits to the ER and continued pain, I discussed the case with [facility], on-call GI specialist Dr. Adair, Who is in agreement that these chronic findings do not warrant an emergent transfer to [facility] for ERCP or MRCP. Patient may need these test done as an outpatient. She will leave a message for Dr. Dee, the patient's regular GI specialist For his office to contact the patient and set up appropriate follow-up. Patient discharged home with a short course of analgesics and nausea medication to follow-up with GI and return to the ER if symptoms change or worsen. Medical Records Attestation: I reviewed the patient's medical records. Lab Data Attestation: I reviewed the patient's lab results. Labs: Lab Results 01/17/24 Range/Units 17:35 WBC 13.8 H (4.0-11.0) 10^3/uL RBC 4.65 (4.20-5.40) 10^6/uL Hgb 15.0 (12.0-16.0) g/dL Hct 46.2 (36.0-48.0) % MCV 99.4 H (81.0-99.0) fL MCH 32.3 (26.7-34.0) pg MCHC 32.5 (29.9-35.2) g/dL RDW 12.7 (11.0-15.0) % Plt Count 298 (150-450) 10^3/uL MPV 9.5 (9.5-13.5) fL Neut % (Auto) 87.8 H (43.0-75.0) % Lymph % (Auto) 8.8 L (20.5-60.0) % Cross % (Auto) 2.6 (1.7-12.0) % Eos % (Auto) 0.0 L (0.9-7.0) % Baso % (Auto) 0.4 (0.2-2.0) % Neut # (Auto) 12.1 H (1.4-6.5) 10^3/uL Lymph # (Auto) 1.2 (1.2-3.8) 10^3/uL Cross # (Auto) 0.4 (0.3-0.8) 10^3/uL Eos # (Auto) 0.0 (0.0-0.7) 10^3/uL Baso # (Auto) 0.1 (0.0-0.1) 10^3/uL Abs Immat Gran (auto) 0.05 H (0.00-0.03) 10^3/uL Imm/Tot Granulo (auto) 0.4 (0.0-0.5) % Sodium 143 (136-145) mmol/L Potassium 4.0 (3.5-5.1) mmol/L Chloride 104 (98-107) mmol/L Carbon Dioxide 25.7 (21.0-32.0) mmol/L Anion Gap 17.3 BUN 11.0 (7.0-18.0) mg/dL Creatinine 1.01 (0.55-1.02) mg/dL Est GFR ( Amer) >60 (>=60) Est GFR (Non-Af Amer) 57 L (>=60) BUN/Creatinine Ratio 10.9 Glucose 143 H (74-106) mg/dL Lactate 1.4 (0.4-2.0) mmol/L Calcium 10.6 H (8.5-10.1) mg/dL Total Bilirubin 0.3 (0.2-1.0) mg/dL AST 21 (15-37) U/L ALT 23 (14-59) U/L Alkaline Phosphatase 152 H (46-116) U/L Troponin I High Sens 4.7 (4.0-51.3) pg/mL Total Protein 8.1 (6.4-8.2) g/dL Albumin 4.3 (3.4-5.0) g/dL Globulin 3.8 g/dL Albumin/Globulin Ratio 1.1 Amylase 113 (25-115) U/L Lipase 35.0 (16.0-77.0) U/L Imaging Data CT scan - abdomen: Attestation: I have reviewed the pertinent imaging results. Radiologist's impression: ITS Impressions Abdomen/Pelvis CT 03/25/23 17:45 Impression: 1. Colonic diverticulosis with no evidence of diverticulitis. 2. Status postcholecystectomy. Stable dilated common bile duct measuring 15 mm. Although the common bile duct diameter is beyond the threshold for postcholecystectomy CBD (10 mm), it did not change compared to 11/02/2022 exam. Please correlate with bilirubin level. 3. Stable mild diffuse dilatation of pancreatic duct measuring 5 mm. No evidence of acute pancreatitis. 4. Stable 1.4 cm left adrenal nodule, probably adenoma. Electronically authenticated by: PEDRO SOLIS Date: 03/25/2023 20:33 Discharge Plan Discharge Chief Complaint: Abdominal Pain Clinical Impression: Nausea & vomiting, Abdominal pain Patient Disposition: Home, Self-Care Time of Disposition Decision: 21:21 Condition: Good Prescriptions / Home Meds: New oxycodone-acetaminophen [Percocet] 5-325 mg tablet 1 tab PO Q6H PRN (Reason: pain) 2 Days Qty: 10 0RF Rx Instructions: DX: R10.2 famotidine [Pepcid] 20 mg tablet 20 mg PO BID Qty: 10 0RF ondansetron 4 mg tablet,disintegrating 4 mg PO Q6H PRN (Reason: nausea and vomiting) Qty: 12 0RF No Action ergocalciferol (vitamin D2) [Vitamin D2] 1,250 mcg (50,000 unit) capsule 50,000 unit PO .weekly Creon 6,000-19,000 -30,000 unit capsule,delayed release(DR/EC) 2 cap PO BID promethazine 25 mg tablet 25 mg PO Q6H PRN (Reason: nausea and vomiting) Qty: 12 0RF oxycodone-acetaminophen [Percocet] 5-325 mg tablet 1 tab PO Q6H PRN (Reason: pain) Qty: 10 0RF hydrocodone-acetaminophen 5-325 mg tablet 1 tab PO Q6H PRN (Reason: pain) Qty: 8 0RF Rx Instructions: DX: R10.9 guaifenesin [Mucinex] 600 mg tablet extended release 12hr 600 mg PO Q12H PRN (Reason: cough) Qty: 10 0RF albuterol sulfate [ProAir HFA] 90 mcg/actuation HFA aerosol inhaler 2 inh inhalation QID PRN (Reason: shortness of breath or wheezing) Qty: 8.5 0RF hydrocodone-acetaminophen 5-325 mg tablet 1 tab PO Q4H PRN (Reason: pain) Qty: 6 0RF sucralfate [Carafate] 1 gram tablet 1 g PO Q6H PRN (Reason: abdominal pain) Qty: 12 0RF oxycodone-acetaminophen [Percocet] 5-325 mg tablet 1 tab PO Q6H PRN (Reason: pain) 4 Days Qty: 15 0RF Rx Instructions: R10.9 Instructions: Acute Nausea and Vomiting (ED), Acute Abdominal Pain (ED) Stand Alone Forms: Portal Instructions Referrals: [facility] [Primary Care Provider] - 1 week Discharge Date/Time: 03/25/23 21:47
[2023-03-25 17:47] LABS: Basophils Absolute Auto 0.1 10^3/uL (0.0-0.1); Basophils Percent Auto 0.4 % (0.2-2.0); Hematocrit 46.2 % (36.0-48.0); Immature Granulocytes Abs Auto 0.05 10^3/uL (0.00-0.03); Immature Granulocytes Pct Auto 0.4 % (0.0-0.5); Lymphocytes Absolute Auto 1.2 10^3/uL (1.2-3.8); Lymphocytes Percent Auto 8.8 % (20.5-60.0); Mean Corpuscular HGB Conc 32.5 g/dL (29.9-35.2); Mean Corpuscular Hemoglobin 32.3 pg (26.7-34.0); Mean Corpuscular Volume 99.4 fL (81.0-99.0); Mean Platelet Volume 9.5 fL (9.5-13.5); Monocytes Absolute Auto 0.4 10^3/uL (0.3-0.8); Monocytes Percent Auto 2.6 % (1.7-12.0); Neutrophils Absolute Auto 12.1 10^3/uL (1.4-6.5); Neutrophils Percent Auto 87.8 % (43.0-75.0); Platelet Count 298 10^3/uL (150-450); Red Blood Count 4.65 10^6/uL (4.20-5.40); Red Cell Distribution Width 12.7 % (11.0-15.0); White Blood Count 13.8 10^3/uL (4.0-11.0)
[2023-03-25 17:59] LABS: Alanine Aminotransferase 23 U/L (14-59); Albumin Globulin Ratio 1.1; Albumin Level 4.3 g/dL (3.4-5.0); Alkaline Phosphatase 152 U/L (46-116); Anion Gap 17.3; Aspartate Amino Transferase 21 U/L (15-37); BUN Creatinine Ratio 10.9; Bilirubin Total 0.3 mg/dL (0.2-1.0); Calcium 10.6 mg/dL (8.5-10.1); Carbon Dioxide 25.7 mmol/L (21.0-32.0); Chloride 104 mmol/L (98-107); Estimated GFR (African America >60 (>=60); Estimated GFR (Non-African Ame 57 (>=60); Globulin 3.8 g/dL; Glucose 143 mg/dL (74-106); Sodium 143 mmol/L (136-145); Total Protein 8.1 g/dL (6.4-8.2)
[2023-03-25 18:01] LABS: Amylase 113 U/L (25-115); Lactate/Lactic Acid 1.4 mmol/L (0.4-2.0); Troponin I High Sensitivity 4.7 pg/mL (4.0-51.3)
== END 2023-03-25 21:47 | disposition home or self-care (01) ==
PROVIDERS: Physician Assistant; Emergency Provider Internal Medicine
DX: R10.9 Unspecified abdominal pain (principal); R11.2 Nausea with vomiting, unspecified; Z79.899 Other long term (current) drug therapy; F17.210 Nicotine dependence, cigarettes, uncomplicated; Z90.49 Acquired absence of other specified parts of digestive tract
CPT/HCPCS: 36415; 74177; 80053; 82150; 83605; 83690; 84484; 85025; 96361; 96374; 96375; 96376; 99285; J1170; J2405; Q9967

== ENCOUNTER 2023-04-03 02:21 | Observation (INO) | payer OTHER, SELFPAY ==
[2023-04-03] VITALS (31 sets, daily range): BP systolic 117–179; BP diastolic 74–96; PULSE 76–99; RESP 14–22; TEMP 36.7–37.2; O2SAT 94–100; BMI 22.5
--- OUTSIDE RECORDS SUMMARY | 2023-04-03 02:30 | XMS_ITS | CCD ---
Author Name Unknown Address [address] [place] [address] Organization [facility] Care Team Providers Care Glass Cutter Helper Name Role Phone LiAlexander Unavailable LI, KEWA Unavailable Unavailable COPC SACHIN, GENERIC Unavailable Unavailable COPC SACHIN, GENERIC Unavailable Unavailable ALIRIO NEGRO Unavailable Unavailable LI, KEWA Unavailable Unavailable JOANA MENDES Unavailable Unavailable LI, KEWA Unavailable Unavailable ERROL WALTON Unavailable Unavaila ble LI, KEWA Unavailable Unavailable KEERTHI NGUYEN Unavailable Unavailable COPC SACHIN, GENERIC Unavailable Unavailable KEERTHI NGUYEN Unavailable Unavailable LI, KEWA Unavailable Unavailable [facility], [facility] Unavailable Unav ailable EUGENIA SHELTON Unavailable Unavailable [facility], [facility] Unavailable Unav ailable Unavailable Primary Care Provider UnavailRAJEEV Pino Admitting Unavailable RAJEEV TINOCO Attending Unavailable LiDarrickwa Primary Care Provider [phone] Unavailable Primary Care Provider UnavailMarya Guajardo Unavailable NON STAFF Primary Care Provider UnavailDO Keaton Thompson Emergency Provider [phone] SALMA Amor Emergency Provider SALMA Lopez Emergency Provider Woodrow ALEXANDER, Pineda Espinal Unavailable [facility], Other Primary Care Provi mathew NON STAFF Primary Care Provider UnavailMD Agustin Varela Emergency Provider DR TRI HANSON Consulting Unavailable ARIC CHAUDHARY Attending Unavailable ARIC CHAUDHARY Admitting Unavailable [facility] Primary Care Unavailable ARIC CHAUDHARY Consulting Unavailable AGUSTIN MADRIGAL Consulting Unavailable YANNI FRASER Attending Unavailable YANNI FRASER Admitting Unavailable [facility] Primary Care Unavailable HEBERT MCPHERSON Consulting Unavailable AMINATA, DR RAJEEV Chan Consulting Unavailable AMINATA, DR RAJEEV Chan Attending Unavailable AMINATA, DR RAJEEV Chan Admitting Unavailable [facility] Primary Care Unavailable GRECARLOS ., ANKIT BOYKIN Consulting [facility] IGGY ., MONIK Attending Unavailable IGGY ., MONIK Admitting Unavailable GRECHNY ., ANKIT BOYKIN Consulting UnavailGeneral acute hospital Primary Care Unavailable ANNELIESE, NICK Consulting Unavailable JANUSZ ., ARIC Consulting Unavailable AGUSTIN HIGHTOWER Consulting Unavailable ROLAN EUCEDA Consulting Unavailable AMINATA, DR RAJEEV Chan Consulting Unavailable BRIANNA, DR SHARON Silveira Attending [facility] e REINECK, DR SHARON Silveira Admitting UnavailGeneral acute hospital Primary Care Unavailable BRIANNA, DR SHARON Silveira Consulting [facility] HANS ., NAT Consulting Unavailable HANS ., NAT Consulting Unavailable PAY ., DR MACEDO Attending Unavailable PAY ., DR MACEDO Admitting Unavailable [facility] Primary Care Unavailable ANNELIESE, NICK Consulting Unavailable ANNELIESE, NICK Attending Unavailable ANNELIESE, NICK Admitting Unavailable [facility] Primary Care Unavailable MILADIS BARRERA Consulting Unavailable JANUSZ ., ARIC Attending Unavailable JANUSZ ., ARIC Admitting Unavailable JANUSZ ., ARIC Consulting Unavailable [facility] Primary Care Unavailable ION KRUSE Consulting Unavailable YANNI FRASER Attending Unavailable YANNI FRASER Admitting Unavailable JANNY ., ANKIT BOYKIN Consulting UnavailGeneral acute hospital Primary Care Unavailable LYNNE PERDOMO Consulting Unavailable JANUSZ ., ARIC Attending Unavailable JANUSZ ., ARIC Admitting Unavailable [facility] Primary Care Unavailable JANUSZ ., ARIC Consulting Unavailable DIAB ., ELENITA Consulting Unavailable DIAB ., ELENITA Attending Unavailable DIAB ., ELENITA Admitting Unavailable [facility] Primary Care Unavailable PAY ., DR MACEDO Consulting Unavailable PAY ., DR MACEDO Attending Unavailable PAY ., DR MACEDO Admitting Unavailable [facility] Primary Care Unavailable ANNELIESE, NICK Consulting Unavailable ANNELIESE, NICK Attending Unavailable ANNELIESE, NICK Admitting Unavailable [facility] Primary Care Unavailable AGUSTIN HIGHTOWER Consulting Unavailable AMINATA, DR RAJEEV Chan Consulting Unavailable HAY ., DR GRANT Attending Unavailable HAY ., DR GRANT Admitting Unavailable [facility] Primary Care Unavailable HAY ., DR GRANT Consulting Unavailable [facility], OTHER Primary Care Un available STEVE, SOMASHEKAR G Attending Unavailabl e STEVE, SOMASHEKAR G Referring Unavailabl e [facility], OTHER Primary Care Un available STEVE, SOMASHEKAR G Referring Unavailabl e [facility], OTHER Primary Care Un available STEVE, SOMASHEKAR G Referring Unavailabl e STEVE, SOMASHEKAR G Attending Unavailabl e [facility], OTHER Primary Care Un available STEVE, SOMASHEKAR G Referring Unavailabl e STEVE, SOMASHEKAR G Attending Unavailabl e STEVE, SOMASHEKAR G Attending Unavailabl e [facility] Primary Care Un available STEVE, SOMASHEKAR G Referring Unavailabl e [facility] OTHER Primary Care Un available [facility] OTHER Referring Un available STEVE, SOMASHEKAR G Attending Unavailabl e NON STAFF Primary Care Provider Unavailabl e Saffle, COYOTE HUNTER Nicole N Emergency Provider Robb Burris Admitting Unavailable Robb Burris Attending Unavailable NON STAFF Primary Care Unavailable Agustin Llanes Admitting Unavailable Agustin Llanes Attending Unavailable NON STAFF Primary Care Unavailable Nicole Posadas Admitting Unavailable Nicole Posadas Attending Unavailable NON STAFF Primary Care Unavailable [facility] Primary Care Unava ilable [facility] Attending Unavailable [facility] Attending Unavailable [facility] Referring Unavailable [facility] Primary Care Unava ilable NON STAFF Primary Care Provider Unavailabl e Saffle, COYOTE HUNTER Nicole Serrano Emergency Provider [phone] Allergies Allergy Classification Reported Allergen(s) Allergy Type Date of Onset Reaction(s) Facility (18 sources) haloperidol; Translations: [HALOPERIDOL] Propensity to adverse reactions to drug 06-02-19 16 Hives [facility] (20 sources) ibuprofen; Translations: [IBUPROFEN] Propensity to adverse reactions to drug 10-31-19 13 Hives, Swelling [facility] (6 sources) metoclopramide; Translations: [METOCLOPRAMIDE HCL] Propensity to adverse reactions to drug 07-01-19 17 [facility] (6 sources) penicillin g; Translations: [PENICILLIN G] Propensity to adverse reactions to drug 07-25-19 15 Anaphylaxis [facility] (20 sources) traMADol; Translations: [TRAMADOL] Propensity to adverse reactions to drug 07-25-19 15 [facility] (19 sources) morphine; Translations: [MORPHINE] Drug Allergy 07-16-19 18 [facility] (2 sources) Enoxaparin Drug Allergy 08-23-19 20 Itching, Rash [place] (2 sources) Haloperidol Drug Allergy 10-20-19 18 Swelling [place] (14 sources) Penicillins; Translations: [PENICILLINS] Propensity to adverse reactions to drug 10-31-19 13 Anaphylaxis, Swelling [place] (2 sources) Haloperidol; Translations: [Haldol] Drug Allergy 08-10-19 19 Unknown [facility] (8 sources) fentaNYL; Translations: [Fentanyl] Drug Allergy 09-13-19 21 [facility] (7 sources) Ketorolac; Translations: [ketorolac] Drug Allergy 06-13-19 21 [facility] (6 sources) Ketorolac Drug Allergy 12-17-19 22 Hives, Itching [facility] (6 sources) Metoclopramide Drug Allergy 07-20-19 17 Anxiety [facility] (1 source) Ibuprofen Drug Allergy 01-09-20 13 [facility] (1 source) Ketorolac Drug Allergy [facility] (1 source) Morphine Drug Allergy 08-10-19 19 [facility] (1 source) Penicillins Drug allergy (disorder) 01-09-20 13 [facility] (1 source) traMADol Drug Allergy 01-09-20 13 [facility] (1 source) Haloperidol Drug Allergy 11-10-19 23 [facility] (1 source) Ibuprofen Drug Allergy 11-10-19 23 [facility] (1 source) Morphine Drug Allergy 11-10-19 23 [facility] (1 source) Penicillins Drug allergy (disorder) 11-10-19 23 [facility] (1 source) traMADol Drug Allergy 11-10-19 [facility] Medications Current Medications Medication Drug Class(es) Dates Sig (Normalized) Sig (Original) Acetaminophen (1 source) Start: 08-23-2019 acetaminophen (TYLENOL) tablet 650 mg amylase 850640 unt / lipase 11201 unt / protease 23732 unt delayed release oral capsule (9 sources) Start: 12-16-2021 End: 07-16-2022 take 83690-36769 capsules by mouth three times daily Alusfg-Wddimjml-Ora lase (Creon) 24,000-76,000 -120,000 unit capsule,delayed release(DR/EC) Active 2 CAP PO Three times daily December 18, 2021 11:00pm dicyclomine hydrochloride 10 mg oral capsule (13 sources) Anticholinergic Start: 11-09-2022 take 10 mg by mouth three times daily Dicyclomine Active 10 MG PO Three times daily November 08, 2022 11:00pm Start: 09-25-2021 End: 10-04-2021 take 20 mg by mouth four times daily Dicyclomine Discontinued 20 MG PO Four times daily September 24, 2021 11:00pm October 04, 2021 2:17pm Start: 03-04-2018 dicyclomine (B ENTYL) injection 20 [...] by mouth every week ergocalciferol 1.25 MG (06808 UT) capsule Take 1 capsule by mouth [...] as needed HYDROmorphone (DILAUDID) injection 0.5 mg [place] (No Known Home Meds) (1 source) Start: 10-09-2021 [place] (No Kn own Home Meds) Active October 09, 2021 12:00am omeprazole 20 mg delayed release oral capsule (2 sources) Proton Pump Inhibitor Start: 06-16-2022 take 1 capsule by mouth once daily omeprazole [address] capsule Take 1 capsule by mouth daily. 30 capsule 6 06/16/2022 Active oxyCODONE hydrochloride 5 mg oral tablet (5 sources) Opioid Agonist Start: 03-22-2022 take 5 mg by mouth every four to six hours Oxycodone Active 5 MG PO EVERY 4-6 HOURS 12 09March 22, 2022 Start: 01-28-2022 End: 01-28-2022 oxyCODONE (ROXICODONE) table t 5 mg Start: 05-15-2017 End: 05-15-2017 take 1 tablet by mouth every four hours as needed oxyCODONE (ROXICODONE) immediate release tablet 5 mg polyethylene glycol 3350 [id number] mg powder for oral solution (1 source) Osmotic Laxative Start: 08-22-2019 17 g, Oral, D AILY PRN, Constipation, Starting 08/22/19 at 1627 First line therapy for constipation promethazine hydrochloride 25 mg oral tablet (20 sources) Phenothiazine Start: 11-09-2022 take 25 mg by mouth three times daily Promethazine Active 25 MG PO Three times daily November 08, 2022 11:00pm Start: 12-19-2021 take 25 mg by mouth every six hours Promethazine Active 25 MG PO Q6H December 18, 2021 11:00pm Start: 09-25-2021 End: 10-04-2021 take 25 mg by mouth four times daily Promethazine Discontinued 25 MG PO Four times daily September 24, 2021 11:00pm October 04, 2021 2:17pm Start: 08-11-2021 End: 09-25-2021 take 25 mg by mouth every six hours Promethazine Discontinued 25 MG PO Q6H August 10, 2021 11:00pm September 25, 2021 7:51pm Start: 05-16-2020 End: 05-31-2020 take 1 tablet by mouth every four to six hours Promethazine (Phenergan) 12.5 mg Tablet Discontinued 12.5 MG PO EVERY 4-6 HOURS May 16, 2020 12:00am May 31, 2020 2:51pm Start: 08-22-2019 promethazine ( PHENERGAN) tablet 12.5 mg Start: 08-22-2019 End: 08-22-2019 promethazine (PHENERGAN) inj ection 12.5 mg Start: 07-05-2019 End: 03-28-2020 take 25 mg by mouth every six hours Promethazine Discontinued 25 MG PO Q6H July 04, 2019 11:00pm March 28, 2020 3:50pm Start: 08-24-2017 End: 08-24-2017 promethazine (PHENERGAN) sup pository 25 mg End: 05-14-2017 take 1 tablet by mouth every six hours as needed promethazine (PHENERGAN) 25 MG tablet Take 25 mg by mouth every 6 (six) hours as needed for nausea. 05/14/2017 Discontinued Completed/Discontinued Medications Medication Drug Class(es) Dates Sig (Normalized) Sig (Original) acetaminophen 325 mg / HYDROcodone bitartrate 5 mg oral tablet (10 sources) Opioid Agonist Start: 10-08-2020 End: 11-20-2020 take 1 tablet by mouth every four to six hours Hydrocodone-Acetami nophen Discontinued 1 TAB PO EVERY 4-6 HOURS 6 October 08, 2020 November 20, 2020 5:23pm Start: 04-19-2020 End: 05-31-2020 take 1 tablet by mouth every six hours Hydrocodone-Acetaminophen Discontinued 1 TAB PO Q6H 10 April 19, 2020 May 31, 2020 2:51pm acetaminophen 325 mg / oxyCODONE hydrochloride 5 mg oral tablet (10 sources) Opioid Agonist Start: 10-04-2021 End: 10-09-2021 take 1 tablet by mouth every six hours Oxycodone-Acetaminophen (Percocet) 5-325 mg tablet Discontinued 1 TAB PO Q6H 10 October 04, 2021 October 09, 2021 1:19pm Start: 03-28-2020 End: 04-19-2020 take 1 tablet by mouth every six hours Oxycodone-Acetaminophen (Percocet) 5-325 mg tablet Discontinued 1 TAB PO Q6H 10 March 28, 2020 April 19, 2020 6:36pm Start: 08-24-2017 End: 08-24-2017 oxyCODONE-acetaminophen (PER COCET) 5-325 mg per tablet 1 tablet amitriptyline hydrochloride 25 mg oral tablet (11 sources) Tricyclic Antidepressant Start: 09-25-2021 End: 10-04-2021 take 25 mg by mouth once daily Amitriptyline Discontinued 25 MG PO Daily September 24, 2021 11:00pm October 04, 2021 2:17pm Start: 12-01-2019 take 2.5 tablets by mouth [...] 40 mg famotidine 20 mg oral tablet (9 sources) Histamine-2 Receptor Antagonist Start: 09-25-2021 End: 10-04-2021 take 20 mg by mouth once daily Famotidine Discontinued 20 MG PO Daily September 24, 2021 11:00pm October 04, 2021 2:17pm Start: 03-04-2018 End: 03-04-2018 famotidine (PEPCID) injectio n 20 mg Start: 05-14-2017 End: 05-15-2017 take 1 tablet by sachin th once daily famotidine (PEPCID) 20 MG tablet [...] 30 mg mirtazapine 15 mg oral tablet (7 sources) Start: 12-01-2019 End: 12-16-2021 take 15 mg by mouth at bedtime Mirtazapine Discontinued 15 MG PO Bedtime March 28, 2020 12:00am May 31, 2020 2:51pm End: 05-14-2017 take 1 tablet by mouth [...] 4 MG PO Four times daily October 03, 2021 11:00pm October 09, 2021 1:19pm Start: 10-08-2020 End: 11-20-2020 Ondansetron Discontinued 4 M G PO every 6 to 8 hours October 07, 2020 11:00pm November 20, 2020 5:23pm Start: 04-19-2020 End: 05-16-2020 take 4 mg by mouth four times daily Ondansetron Discontinued 4 MG PO Four times daily April 19, 2020 12:00am May 16, 2020 8:59am Start: 03-28-2020 End: 05-16-2020 take 4 mg by mouth every six hours Ondansetron Discontinued 4 MG PO Q6H March 28, 2020 12:00am May 16, 2020 8:59am Start: 03-04-2018 take 1 tablet by sachin [...] Translations: [Epigastric pain] Onset: 10-23-2014 11-30-2014 Episodic Administrative/social admission (4 sources) Drug seeking behavior ; Translations: [Malingerer [...] unspecified] Onset: 08-30-2014 Resolved: 06-09-2016 11-30-2014 Episodic Noninfectious gastroenteritis (3 sources) Noninfective gastroenteritis and colitis, unspecified; Translations: [Noninfective gastroenteritis and colitis, unspecified] Onset: 08-24-2017 Episodic Osteoporosis (6 sources) Osteoporosis; Translations: [Other osteoporosis without current pathological fracture] Onset: 01-28-2022 Chronic Other aftercare (1 source) Other fdc (current) drug therapy; Translations: [OTH PRISON CURRENT DRUG THERAPY] Onset: 04-01-2022 Episodic Other gastrointestinal disorders (12 sources) Diarrhea; Translations: [Diarrhea, unspecified] Onset: 06-30-2015 Resolved: 04-24-2016 07-06-2019 Episodic Other gastrointestinal disorders (5 sources) History of pancreatitis; Translations: [Personal history [...] Classification Problem Date Documented Da te Episodic/Chronic Complication of device; implant or graft (6 [...] communicable diseases Onset: 03-19-2021 Resolved: 03-19-2021 Episodic Other disorders of stomach and duodenum [...] Serum or PlasmaOrdered By: Nicole Posadas on 04-02-2023 ALT [Catalytic activity/Vol] 11 U/L 7-52 [facility] Albumin [Mass/volume] in Ser um or Plasma by Bromocresol green (BCG) dye binding methoOrdered By: Nicole Posadas on 04-02-2023 Albumin BCG dye [Mass/Vol] 4.2 g/dL 3.5-5.7 [facility] Alkaline phosphatase [Enzyma tic activity/volume] in Serum or PlasmaOrdered By: Nicole Posadas on 04-02-2023 ALP [Catalytic activity/Vol] 101 U/L 34-104 [facility] Aspartate aminotransferase [ Enzymatic activity/volume] in Serum or PlasmaOrdered By: Nicole Posadas on 04-02-2023 AST [Catalytic activity/Vol] 21 U/L 13-39 [facility] Basophils Auto (Bld) [#/Vol] Ordered By: Nicole Posadas on 04-02-2023 Basophils (Bld) [#/Vol] 0.0 10*3/uL 0.0-0.2 [facility] Basophils/100 WBC Auto (Bld) Ordered By: Nicole Posadas on 04-02-2023 Basophils/100 WBC (Bld) 0.2 % . [facility] Bilirubin Test strip Ql (U)O rdered By: Nicole Posadas on 04-02-2023 Bilirubin Ql (U) Negative Negative [facility] Bilirubin.total [Mass/volume ] in Serum or PlasmaOrdered By: Nicole Posadas on 04-02-2023 Bilirubin [Mass/Vol] 0.3 mg/dL 0.3-1.0 [facility] Calcium [Mass/volume] in Ser um or PlasmaOrdered By: Nicole Posadas on 04-02-2023 Calcium [Mass/Vol] 9.7 mg/dL 8.6-10.3 [facility] Carbon dioxide, total [Moles /volume] in Serum or PlasmaOrdered By: Nicole Posadas on 04-02-2023 CO2 [Moles/Vol] 26.3 mmol/L 21.0-31.0 [facility] Chloride [Moles/volume] in S erika or PlasmaOrdered By: Nicole Posadas on 04-02-2023 Chloride [Moles/Vol] 106 mmol/L 98-107 [facility] Color Auto (U)Ordered By: Reshma Posadas on 04-02-2023 Color (U) Yellow Yellow [facility] Creatinine [Mass/volume] in Serum or PlasmaOrdered By: Nicole Posadas on 04-02-2023 Creatinine [Mass/Vol] 0.82 mg/dL 0.60-1.20 [facility] Eosinophils Auto (Bld) [#/Vo l]Ordered By: Nicole Posadas on 04-02-2023 Eosinophils (Bld) [#/Vol] 0.1 10*3/uL 0.0-0.45 [facility] Eosinophils/100 WBC Auto (Bl d)Ordered By: Nicole Posadas on 04-02-2023 Eosinophils/100 WBC (Bld) 1.7 % . [facility] Erythrocyte distribution wid th Auto (RBC) [Ratio]Ordered By: Nicole [facility] on 04-02-2023 Erythrocyte distribution width (RBC) [Ratio] 13.3 % 11.9-15.3 [facility] Fibrin D-dimer [Presence] in Platelet poor plasma by Latex agglutinationOrdered By: [facility] on 04-02-2023 Fibrin D-dimer LA Ql (PPP) < 200 ng/mL 0-243 [facility] Comment on above: The reference range for D-dimer is <243 ng/mL D-dimer units.D-dimer results must be used in conjunction with a clinicalpretest probability (PTP) assessment model for deep veinthrombosis (DVT) and pulmonary embolism (PE). Results <230ng/mL d-dimer units can be used as a negative predictor inpatients with low or moderate probability for DVT/PE.Results above the exclusion threshold of 230 ng/ml D-dimerunits for DVT/PE may indicate the need for furtherdiagnostic testing.D-Dimer can be increased in hospitalized patients due toco-morbid conditions.A hematocrit value greater than 55% may lead to inaccurate results in coagulation testing. Patients having hematocrit values >55% require a special collection tube for coagulation studies. Please contact the laboratory at [phone] for redraw instructions. Globulin Calc (S) [Mass/Vol] Ordered By: Nicole Posadas on 04-02-2023 Globulin (S) [Mass/Vol] 2.4 g/dL [facility] Glucose [Mass/volume] in Ser um or PlasmaOrdered By: Nicole Posadas 04-02-2023 Glucose [Mass/Vol] 90 mg/dL 70-100 [facility] Comment on above: ADA recommended refe rence rangeRandom Glucose Reference Range is dependent on time and content of last meal. Glucose of more than 200 mg/dL in a nonstressed, ambulatory subject supports the diagnosis of Diabetes Mellitus. Hematocrit Auto (Bld) [Volum e fraction]Ordered By: Nicole Posadas on 04-02-2023 Hematocrit (Bld) [Volume fraction] 41.8 % 34.0-46.4 [facility] Hemoglobin [Mass/volume] in BloodOrdered By: Nicole Posadas on 04-02-2023 Hemoglobin (Bld) [Mass/Vol] 14.2 g/dL 11.8-15.4 [facility] Ketones Auto test strip (U) [Mass/Vol]Ordered By: Nicole Posadas on 04-02-2023 Ketones (U) [Mass/Vol] Negative Negative [facility] Leukocytes [#/volume] correc aurelia for nucleated erythrocytes in Blood by Automated counOrdered By: Nicole Posadas on 04-02-2023 WBC corrected for nucl RBC Auto (Bld) [#/Vol] 6.2 10*3/uL 3.8-11.6 [facility] Lipase [Enzymatic activity/v olume] in Serum or PlasmaOrdered By: Nicole Posadas on 04-02-2023 Lipase [Catalytic activity/Vol] 186.0 U/L 11.0-82.0 [facility] Lymphocytes Auto (Bld) [#/Vo l]Ordered By: Nicole Posadas on 04-02-2023 Lymphocytes (Bld) [#/Vol] 1.8 10*3/uL 1.00-4.8 [facility] Lymphocytes/100 WBC Auto (Bl d)Ordered By: Nicole Posadas on 04-02-2023 Lymphocytes/100 WBC (Bld) 29.2 % . [facility] MCH Auto (RBC) [Entitic mass ]Ordered By: Nicole Posadas on 04-02-2023 MCH (RBC) [Entitic mass] 33.1 pg 24.7-34.3 [facility] MCHC Auto (RBC) [Mass/Vol]Or dered By: Nicole Posadas on 04-02-2023 MCHC (RBC) [Mass/Vol] 34.0 g/dL 32.0-35.0 [facility] MCV Auto (RBC) [Entitic vol] Ordered By: Nicole Posadas on 04-02-2023 MCV (RBC) [Entitic vol] 97.4 fL 80-100 [facility] Monocyte distribution width [Entitic volume] in Blood by AutomatedOrdered By: Nicole Posadas on 04-02-2023 Monocyte distribution width Auto (Bld) [Entitic vol] 17.36 % 0.00-20.00 [facility] Monocytes Auto (Bld) [#/Vol] Ordered By: Nicole Posadas on 04-02-2023 Monocytes (Bld) [#/Vol] 0.6 10*3/uL 0.0-0.8 [facility] Monocytes/100 WBC Auto (Bld) Ordered By: Nicole Posadas on 04-02-2023 Monocytes/100 WBC (Bld) 9.8 % . [facility] Neutrophils Auto (Bld) [#/Vo l]Ordered By: Nicole Posadas on 04-02-2023 Neutrophils (Bld) [#/Vol] 3.6 10*3/uL 1.8-7.7 [facility] Neutrophils/100 WBC Auto (Bl d)Ordered By: Nicole Posadas on 04-02-2023 Neutrophils/100 WBC (Bld) 59.1 % . [facility] Nitrite Test strip Ql (U)Ord ered By: Nicole Posadas on 04-02-2023 Nitrite Ql (U) Negative Negative [facility] No Panel InformationOrdered By: Nicole Posadas on 04-02-2023 Estimated GFR (CKD-EPI) > 60.0 mL/Min [facility] Creatinine Clearance (Chem 62.75 [facility] Nucleated erythrocytes [Pres ence] in Blood by Automated countOrdered By: Nicole Posadas on 04-02-2023 Nucleated RBC Auto Ql (Bld) 0.1 /100{WBC} 0-0.5 [facility] Platelet mean volume Auto (B ld) [Entitic vol]Ordered By: Nicole Posadas on 04-02-2023 Platelet mean volume (Bld) [Entitic vol] 8.3 fL 6.3-10.7 [facility] Platelets Auto (Bld) [#/Vol] Ordered By: Nicole Posadas on 04-02-2023 Platelets (Bld) [#/Vol] 236 10*3/uL 150-450 [facility] Potassium [Moles/volume] in Serum or PlasmaOrdered By: Nicole Posadas on 04-02-2023 Potassium [Moles/Vol] 4.3 mmol/L 3.5-5.1 [facility] Protein Auto test strip (U) [Mass/Vol]Ordered By: Nicole Posadas on 04-02-2023 Protein (U) [Mass/Vol] Negative Negative [facility] Protein [Mass/volume] in Ser um or PlasmaOrdered By: Nicole Posadas on 04-02-2023 Protein [Mass/Vol] 6.6 g/dL 6.4-8.9 [facility] RBC Auto (Bld) [#/Vol]Ordere d By: Nicole Posadas on 04-02-2023 RBC (Bld) [#/Vol] 4.29 10*6/uL 3.60-5.00 [facility] Serum or plasma albumin/glob ulin mass ratioOrdered By: Nicole Posadas on 04-02-2023 Albumin/Globulin [Mass ratio] 1.8 {ratio} [facility] Serum or plasma anion gap de terminationOrdered By: Nicole Posadas on 04-02-2023 Anion gap [Moles/Vol] TNP [facility] Comment on above: Test not performed Sodium [Moles/volume] in Ser um or PlasmaOrdered By: Nicole Posadas on 04-02-2023 Sodium [Moles/Vol] 137 mmol/L 136-145 [facility] Specific gravity Auto test s trip (U) [Rel density]Ordered By: Nicole Posadas on 04-02-2023 Specific gravity (U) [Rel density] 1.022 1.001-1.030 [facility] Troponin I.cardiac [Mass/vol ume] in Serum or Plasma by Detection limit <= 0.01 ng/Ordered By: Nicole Posadas on 04-02-2023 Troponin I.cardiac DL <= 0.01 ng/mL [Mass/Vol] 2.6 pg/mL 0.0-15.0 [facility] Urea nitrogen [Mass/volume] in Serum or PlasmaOrdered By: Nicole Posadas on 04-02-2023 Urea nitrogen [Mass/Vol] 7 mg/dL 09-30 [facility] Urine clarity by refractomet ry automatedOrdered By: Nicole Posadas on 04-02-2023 Clarity Refractometry automated (U) Clear Clear [facility] Urine glucose measurement by automated test strip (mass/volume)Ordered By: Nicole Posadas on 04-02-2023 Glucose Auto test strip (U) [Mass/Vol] Normal mg/dL Normal [facility] Urine hemoglobin detection b y automated test stripOrdered By: Nicole Posadas on 04-02-2023 Hemoglobin Auto test strip Ql (U) Negative Negative [facility] Urine leukocyte esterase det ection by automated test stripOrdered By: Nicole Posadas on 04-02-2023 Leukocyte esterase Auto test strip Ql (U) Negative Negative [facility] Urobilinogen Auto test strip (U) [Mass/Vol]Ordered By: Nicole Posadas on 04-02-2023 Urobilinogen (U) [Mass/Vol] Normal mg/dL Normal [facility] WBC Auto (Bld) [#/Vol]Ordere d By: Nicole Posadas on 04-02-2023 WBC (Bld) [#/Vol] 6.2 10*3/uL 3.8-11.6 [facility] pH Auto test strip (U)Ordere d By: Nicole Posadas on 04-02-2023 pH (U) 5.5 [pH] 5.0-9.0 [facility] CBC AND AUTO DIFFon 03-27-19 ABSOLUTE BASOPHIL 0.1 X10E9/L Normal 0.0-0.2 [facility] Comment on above: Performed By: #### C BCA, CMP, 3040-3, 86293-6, 27007-3, 93794- 9 #### [facility] ([id number]) [address] [place] [address] 33412 ABSOLUTE NEUTROPHIL 7.2 X10E9/L High 1.5-6.6 [facility] Comment on above: Performed By: #### C BCA, CMP, 3040-3, 64396-2, 06453-0, 74433- 9 #### [facility] ([id number]) [address] [place] [address] 95756 Basophils/100 WBC (Bld) 0.6 % Normal [facility] Comment on above: Performed By: #### C BCA, CMP, 3040-3, 72357-1, 66664-5, 06058- 9 #### [facility] ([id number]) [address] [place] [address] 18481 Eosinophils (Bld) [#/Vol] 0.0 10*3/uL Normal 0.0-0.4 [facility] Comment on above: Performed By: #### C BCA, CMP, 3040-3, 84556-3, 05536-3, 70491- 9 #### [facility] ([id number]) [address] [place] [address] 92036 Eosinophils/100 WBC (Bld) 0.1 % Normal [facility] Comment on above: Performed By: #### C BCA, CMP, 3040-3, 86778-0, 75073-6, 61484- 9 #### [facility] ([id number]) [address] [place] [address] 03262 Erythrocyte distribution width (RBC) [Ratio] 13.7 % Normal 11.5-15.0 [facility] Comment on above: Performed By: #### C BCA, CMP, 3040-3, 61412-5, 49396-4, 03175- 9 #### [facility] ([id number]) [address] [place] [address] 38473 Hematocrit (Bld) [Volume fraction] 40.4 % Normal 35-47 [facility] Comment on above: Performed By: #### C BCA, CMP, 3040-3, 75098-3, 15085-7, 84662- 9 #### [facility] ([id number]) [address] [place] [address] 97360 Hemoglobin (Bld) [Mass/Vol] 13.8 g/dL Normal 11.7-15.5 [facility] Comment on above: Performed By: #### C EZEQUIEL, CMP, 3040-3, 59253-0, 04628-8, 23469- #### [facility] ([id number]) [address] [place] [address] 50562 Lymphocytes (Bld) [#/Vol] 1.7 10*3/uL Normal 1.0-3.5 [facility] Comment on above: Performed By: #### C EZEQUIEL, CMP, 3040-3, 48149-4, 55898-2, 69312- 9 #### [facility] ([id number]) [address] [place] [address] 45190 Lymphocytes/100 WBC (Bld) 17.8 % Normal [facility] Comment on above: Performed By: #### C BCA, CMP, 3040-3, 96222-1, 42268-2, 69592- 9 #### [facility] ([id number]) [address] [place] [address] 85612 MCH (RBC) [Entitic mass] 33.0 pg Normal 27-34 [facility] Comment on above: Performed By: #### C BCA, CMP, 3040-3, 80982-9, 65943-1, 07982- 9 #### [facility] ([id number]) [address] [place] [address] 35054 MCHC (RBC) [Mass/Vol] 34.1 g/dL Normal 32-36 [facility] Comment on above: Performed By: #### C BCA, CMP, 3040-3, 53272-6, 35845-4, 73658- 9 #### [facility] ([id number]) [address] [place] [address] 06788 MCV (RBC) [Entitic vol] 97 fL Normal 80-100 [facility] Comment on above: Performed By: #### C BCA, CMP, 3040-3, 32953-9, 15375-4, 73962- 9 #### [facility] ([id number]) [address] [place] [address] 52592 Monocytes (Bld) [#/Vol] 0.8 10*3/uL Normal 0-0.9 [facility] Comment on above: Performed By: #### C BCA, CMP, 3040-3, 61537-5, 74828-1, 09826- 9 #### [facility] ([id number]) [address] [place] [address] 17024 Monocytes/100 WBC (Bld) 7.8 % Normal [facility] Comment on above: Performed By: #### C BCA, CMP, 3040-3, 16512-5, 41709-8, 75052- 9 #### [facility] ([id number]) [address] [place] [address] 85048 Neutrophils/100 WBC (Bld) 73.7 % Normal [facility] Comment on above: Performed By: #### C BCA, CMP, 3040-3, 43163-4, 24554-7, 14521- 9 #### [facility] ([id number]) [address] [place] [address] 60438 Platelet mean volume (Bld) [Entitic vol] 7.6 fL Normal 7-12 [facility] Comment on above: Performed By: #### C BCA, CMP, 3040-3, 61768-1, 84302-1, 12133- 9 #### [facility] ([id number]) [address] [place] [address] 75102 Platelets (Bld) [#/Vol] 269 10*3/uL Normal 150-450 [facility] Comment on above: Performed By: #### C BCA, CMP, 3040-3, 74349-9, 98808-7, 82109- 9 #### [facility] ([id number]) [address] [place] [address] 65602 RBC COUNT 4.17 X10E12/L Normal 3.80-5.20 [facility] Comment on above: Performed By: #### C BCA, CMP, 3040-3, 18025-2, 14343-3, 35584- 9 #### [facility] ([id number]) [address] [place] [address] 16689 WBC (Bld) [#/Vol] 9.8 10*3/uL Normal 4.0-11.0 [facility] Comment on above: Performed By: #### C BCA, CMP, 3040-3, 34887-3, 99110-9, 38890- 9 #### [facility] ([id number]) [address] [place] [address] 38369 COMPREHENSIVE METABOLIC PANE Nimesh 03-27-2023 Albumin [Mass/Vol] 4.6 g/dL Normal 3.2-5.3 [facility] Comment on above: Performed By: #### C BCA, CMP, 3040-3, 68693-3, 66835-7, 57917- 9 #### [facility] ([id number]) [address] [place] [address] 54511 ALP [Catalytic activity/Vol] 125 U/L Normal 39-130 [facility] Comment on above: Performed By: #### C BCA, CMP, 3040-3, 90059-8, 08573-6, 14705- 9 #### [facility] ([id number]) [address] [place] [address] 74902 ALT [Catalytic activity/Vol] 17 U/L Normal 0-31 [facility] Comment on above: Performed By: #### C BCA, CMP, 3040-3, 26954-4, 33632-9, 59937- 9 #### [facility] ([id number]) [address] [place] [address] 03280 Anion gap [Moles/Vol] 10 mmol/L Normal 5-15 [facility] Comment on above: Performed By: #### C BCA, CMP, 3040-3, 53574-0, 54926-3, 64275- 9 #### [facility] ([id number]) [address] [place] [address] 10165 AST [Catalytic activity/Vol] 27 U/L Normal 0-41 [facility] Comment on above: Performed By: #### C BCA, CMP, 3040-3, 84417-9, 50042-0, 11790- 9 #### [facility] ([id number]) [address] [place] [address] 77467 Bilirubin [Mass/Vol] 0.4 mg/dL Normal 0.3-1.2 [facility] Comment on above: Performed By: #### C BCA, CMP, 3040-3, 43214-0, 95135-5, 75749- 9 #### [facility] ([id number]) [address] [place] [address] 23605 Calcium [Mass/Vol] 10.4 mg/dL Normal 8.5-10.5 [facility] Comment on above: Performed By: #### C BCA, CMP, 3040-3, 11428-8, 52917-6, 97808- 9 #### [facility] ([id number]) [address] [place] [address] 84092 Chloride [Moles/Vol] 103 mmol/L Normal 98-109 [facility] Comment on above: Performed By: #### C BCA, CMP, 3040-3, 16353-1, 35368-4, 95661- 9 #### [facility] ([id number]) [address] [place] [address] 52196 CO2 [Moles/Vol] 25 mmol/L Normal 22-32 [facility] Comment on above: Performed By: #### C BCA, CMP, 3040-3, 16208-0, 43447-0, 21784- 9 #### [facility] ([id number]) [address] [place] [address] 36941 Creatinine [Mass/Vol] 0.96 mg/dL Normal 0.40-1.00 [facility] Comment on above: Result Comment: METH OD TRACEABLE TO IDMS STANDARD Performed By: #### C BCA, CMP, 3040-3, 53959-1, 46354-9, 62196-9 #### [facility] ([id number]) [address] [place] [address] 60862 GFR/1.73 sq M.predicted among non-blacks MDRD (S/P/Bld) [Vol rate/Area] 71 mL/min/{1.73_m2} Normal >59 [facility] Comment on above: Result Comment: Reported eGFR is based on the CKD-EPI 2020 equation that does not use a race coefficient. Performed By: #### C BCA, CMP, 3040-3, 38853-8, 68600-7, 55879-9 #### [facility] ([id number]) [address] [place] [address] 01025 Glucose [Mass/Vol] 97 mg/dL Normal 65-99 [facility] Comment on above: Performed By: #### C BCA, CMP, 3040-3, 55753-4, 55823-4, 83694- 9 #### [facility] ([id number]) [address] [place] [address] 46459 Potassium [Moles/Vol] 4.2 mmol/L Normal 3.5-5.0 [facility] Comment on above: Performed By: #### C BCA, CMP, 3040-3, 27931-5, 28868-4, 81069- 9 #### [facility] ([id number]) [address] [place] [address] 34997 Protein [Mass/Vol] 7.4 g/dL Normal 6.0-8.0 [facility] Comment on above: Performed By: #### C BCA, CMP, 3040-3, 89428-8, 10383-3, 00956- 9 #### [facility] ([id number]) [address] [place] [address] 92170 Sodium [Moles/Vol] 138 mmol/L Normal 134-146 [facility] Comment on above: Performed By: #### C BCA, CMP, 3040-3, 48961-1, 53508-7, 30992- 9 #### [facility] ([id number]) [address] [place] [address] 06134 Urea nitrogen [Mass/Vol] 14 mg/dL Normal 5-23 [facility] Comment on above: Performed By: #### C BCA, CMP, 3040-3, 50587-7, 91644-5, 95634- 9 #### [facility] ([id number]) [address] [place] [address] ABDOMEN AND PELVIS W CONT on 03-27-2023 CT ABDOMEN AND PELVIS W CONT CT ABDOMEN AND PELVIS W CONT CLINICAL INFORMATION: Pancreatitis. Pain. COMPARISON: 10/31/2022 TECHNIQUE: CT of the abdomen and pelvis with intravenous contrast. FINDINGS: LOWER CHEST: Lung bases are clear. No pericardial or pleural effusion. LIVER AND BILIARY: No suspicious focal liver lesion. Cholecystectomy. The CBD is dilated to 1.1 cm, previously 0.8 cm. PANCREAS: Prominence of the pancreatic duct, similar to prior. No peripancreatic fluid collection or significant inflammation. SPLEEN: Within normal limits. ADRENALS: Redemonstrated 1.2 cm left adrenal nodule. KIDNEYS, URETERS, AND BLADDER: Symmetric enhancement without suspicious lesion or dilatation. Normal bladder contour likely underdistention. GI TRACT AND PERITONEUM: Normal stomach contour. The colon is relatively underdistended diffusely the demonstrates mild mural edema. Appendix is unremarkable towards the midline pelvis. No free fluid. No free air. VASCULATURE: Normal caliber aorta with moderate atherosclerosis. Grossly patent portal vein. LYMPH NODES: Within normal limits. REPRODUCTIVE ORGANS: No adnexal asymmetry. MUSCULOSKELETAL: No acute osseous abnormality. IMPRESSION: 1. Allowing for underdistention, suspect mild pancolonic thickening. Correlate with any nonspecific colitis. 2. Increasing biliary dilatation. Similar pancreatic ductal dilatation. Correlate with LFTs. Consider MRCP follow-up if clinically prudent. 3. No imaging evidence for pancreatitis as queried. 4. Unchanged left adrenal nodule. All CT scans at this facility use dose modulation, iterative reconstruction, and/or weight based dosing when appropriate to reduce radiation dose to as low as reasonably achievable. Finalized by Agustin Flower MD on 03/27/2023 12:55 AM Normal [facility] LIPASEon 03-27-2023 Lipase [Catalytic activity/Vol] 31 U/L Normal 17-40 [facility] Comment on above: Performed By: #### C BONNIE NIEVES, 3040-3, 42460-9, 18667-3, 9 #### [facility] ([id number]) [address] [place] [address] 34673 Lactate (P richard) [Moles/Vol]o n 03-27-2023 LACTATE W/REFLEX 1.2 mmol/L Normal 0.4-2.0 [facility] Comment on above: Result Comment: Result did not trigger repeat Lactate, re-order if needed. Performed By: #### C BONNIE NIEVES, 3040-3, 69211-1, , #### [facility] ([id number]) [address] [place] [address] 97525 MAGNESIUMon 03-27-2023 Magnesium [Mass/Vol] 2.0 mg/dL Normal 1.8-2.6 [facility] Comment on above: Performed By: #### C BCA, CMP, 3040-3, 25031-0, 59094-4, 76246- 9 #### [facility] ([id number]) [address] [place] [address] TROPONIN Ion 03-27-2023 Troponin I.cardiac [Mass/Vol] ng/mL Normal 0.00-0.04 [facility] Comment on above: Performed By: #### C BCA, CMP, 3040-3, 83167-5, 55615-1, 64572- 9 #### [facility] ([id number]) [address] [place] [address] Alanine aminotransferase [En zymatic activity/volume] in Serum or PlasmaOrdered By: Nicole Posadas on 11-09-2022 ALT [Catalytic activity/Vol] 12 U/L 7-52 [facility] Albumin [Mass/volume] in Ser um or Plasma by Bromocresol green (BCG) dye binding methoOrdered By: Nicole Posadas on 11-09-2022 Albumin BCG dye [Mass/Vol] 4.4 g/dL 3.5-5.7 [facility] Alkaline phosphatase [Enzyma tic activity/volume] in Serum or PlasmaOrdered By: Nicole Posadas on 11-09-2022 ALP [Catalytic activity/Vol] 126 U/L 34-104 [facility] Aspartate aminotransferase [ Enzymatic activity/volume] in Serum or PlasmaOrdered By: Nicole Posadas on 11-09-2022 AST [Catalytic activity/Vol] 17 U/L 13-39 [facility] Basophils Auto (Bld) [#/Vol] Ordered By: Nicole Posadas on 11-09-2022 Basophils (Bld) [#/Vol] 0.1 10*3/uL 0.0-0.2 [facility] Basophils/100 WBC Auto (Bld) Ordered By: Nicole Posadas on 11-09-2022 Basophils/100 WBC (Bld) 0.9 % . [facility] Bilirubin Test strip Ql (U)O rdered By: Nicolecarito Posadas on 11-09-2022 Bilirubin Ql (U) Negative Negative [facility] Bilirubin.total [Mass/volume ] in Serum or PlasmaOrdered By: Nicole Posadas on 11-09-2022 Bilirubin [Mass/Vol] 0.3 mg/dL 0.3-1.0 [facility] CT abdomen pelvis w conon CT abdomen pelvis w con [facility] Main [place] [address] [place] [address] CT Scan Report Signed Patient: Chioma Arciniega MR#: [id number] : 1970 Acct:[id number] Age/Sex: 52 / F ADM Date: 11/09/22 Loc: ER Room: Type: [facility] ER Attending Dr: Copies to: Nicole Posadas [...] Rajeev Ulloa M.D.11/09/2022 4:14 PM Dictation Location: [place] [address] Transcribed By: [facility] 11/09/22 1614 Dictated By: Rajeev Ulloa II, MD 11/09/22 1608 Signed By: 11/09/22 1614 Normal [facility] Calcium [Mass/volume] in Ser um or PlasmaOrdered By: Nicole Posadas on 11-09-2022 Calcium [Mass/Vol] 9.7 mg/dL 8.6-10.3 [facility] Carbon dioxide, total [Moles /volume] in Serum or PlasmaOrdered By: Nicole Posadas on 11-09-2022 CO2 [Moles/Vol] 28.6 mmol/L 21.0-31.0 [facility] Chloride [Moles/volume] in S erika or PlasmaOrdered By: Nicole Posadas on 11-09-2022 Chloride [Moles/Vol] 107 mmol/L 98-107 [facility] Color Auto (U)Ordered By: [facility] 11-09-2022 Color (U) Yellow Yellow [facility] Complete Blood Count Auto Di ffon 11-09-2022 Basophils (Bld) [#/Vol] 0.1 10*3/uL Normal 0.0-0.2 [facility] Comment on above: Result Comment: PERF ORMED BY: [place] [address] PATHOLOGIST [employer] ENGINEER PAULA RODRIGUES M.D. Performed By: #### C BC, LIPASE, CMP #### [facility] [address] [place] [address] Basophils/100 WBC (Bld) 0.9 % Normal . [facility] Comment on above: Performed By: #### C BC, LIPASE, CMP #### [facility] [address] Eosinophils (Bld) [#/Vol] 0.1 10*3/uL Normal 0.0-0.45 [facility] Comment on above: Performed By: #### C BC, LIPASE, CMP #### [facility] [address] Eosinophils/100 WBC (Bld) 1.6 % Normal . [facility] Comment on above: Performed By: #### C BC, LIPASE, CMP #### [address] Erythrocyte distribution width (RBC) [Ratio] 13.6 % Normal 11.9-15.3 [facility] Comment on above: Performed By: #### C BC, LIPASE, CMP #### [address] Hematocrit (Bld) [Volume fraction] 44.4 % Normal 34.0-46.4 [facility] Comment on above: Performed By: #### C BC, LIPASE, CMP #### [address] Hemoglobin (Bld) [Mass/Vol] 14.9 g/dL Normal 11.8-15.4 [facility] Comment on above: Performed By: #### C BC, LIPASE, CMP #### [address] Lymphocytes (Bld) [#/Vol] 2.2 10*3/uL Normal 1.00-4.8 [facility] Comment on above: Performed By: #### C BC, LIPASE, CMP #### [address] Lymphocytes/100 WBC (Bld) 24.0 % Normal . [facility] Comment on above: Performed By: #### C BC, LIPASE, CMP #### [address] MCH (RBC) [Entitic mass] 32.8 pg Normal 24.7-34.3 [facility] Comment on above: Performed By: #### C BC, LIPASE, CMP #### [address] MCV (RBC) [Entitic vol] 98.2 fL Normal 80-100 [facility] Comment on above: Performed By: #### C BC, LIPASE, CMP #### [address] Mean Corpuscular HGB Conc 33.4 g/dL Normal 32.0-35.0 [facility] Comment on above: Performed By: #### C BC, LIPASE, CMP #### [address] Monocytes (Bld) [#/Vol] 0.8 10*3/uL Normal 0.0-0.8 [facility] Comment on above: Performed By: #### C BC, LIPASE, CMP #### [address] Monocytes/100 WBC (Bld) 18.76 % Normal 0.00-20.00 [facility] Comment on above: Performed By: #### C BC, LIPASE, CMP #### [address] Monocytes/100 WBC (Bld) 8.1 % Normal . [facility] Comment on above: Performed By: #### C BC, LIPASE, CMP #### [address] Neutrophils (Bld) [#/Vol] 6.1 10*3/uL Normal 1.8-7.7 [facility] Comment on above: Performed By: #### C BC, LIPASE, CMP #### [address] Neutrophils/100 WBC (Bld) 65.4 % Normal . [facility] Comment on above: Performed By: #### C BC, LIPASE, CMP #### [place] [address] [place] NRBC% 0.0 /100{WBC} Normal 0-0.5 [facility] Comment on above: Performed By: #### C BC, LIPASE, CMP #### [address] Platelet mean volume (Bld) [Entitic vol] 8.3 fL Normal 6.3-10.7 [facility] Comment on above: Performed By: #### C BC, LIPASE, CMP #### [address] Platelets (Bld) [#/Vol] 246 10*3/uL Normal 150-450 [facility] Comment on above: Performed By: #### C BC, LIPASE, CMP #### [address] RBC (Bld) [#/Vol] 4.52 10*6/uL Normal 3.60-5.00 [facility] Comment on above: Performed By: #### C BC, LIPASE, CMP #### [address] WBC (Bld) [#/Vol] 9.3 10*3/uL Normal 3.8-11.6 [facility] Comment on above: Performed By: #### C BC, LIPASE, CMP #### [address] Comprehensive Metabolic Pane nimesh 11-09-2022 Albumin [Mass/Vol] 4.4 g/dL Normal 3.5-5.7 [facility] Comment on above: Performed By: #### C BC, LIPASE, CMP #### [address] Albumin/Globulin [Mass ratio] 1.6 {ratio} Normal [facility] Comment on above: Performed By: #### C BC, LIPASE, CMP #### [address] ALP [Catalytic activity/Vol] 126 U/L High 34-104 [facility] Comment on above: Performed By: #### C BC, LIPASE, CMP #### [facility] [address] ALT [Catalytic activity/Vol] 12 U/L Normal 7-52 [facility] Comment on above: Performed By: #### C BC, LIPASE, CMP #### [facility] [address] Anion gap [Moles/Vol] 8.1 mmol/L Normal 6.0-15.0 [facility] Comment on above: Performed By: #### C BC, LIPASE, CMP #### [facility] [address] AST [Catalytic activity/Vol] 17 U/L Normal 13-39 [facility] Comment on above: Performed By: #### C BC, LIPASE, CMP #### [facility] [address] Bilirubin [Mass/Vol] 0.3 mg/dL Normal 0.3-1.0 [facility] Comment on above: Performed By: #### C BC, LIPASE, CMP #### [facility] [address] [place] [address] [place] Calcium [Mass/Vol] 9.7 mg/dL Normal 8.6-10.3 [facility] Comment on above: Performed By: #### C BC, LIPASE, CMP #### [facility] [address] [place] [address] [place] Chloride [Moles/Vol] 107 mmol/L Normal 98-107 [facility] Comment on above: Performed By: #### C BC, LIPASE, CMP #### [facility] [address] [place] [address] [place] CO2 [Moles/Vol] 28.6 mmol/L Normal 21.0-31.0 [facility] Comment on above: Performed By: #### C BC, LIPASE, CMP #### [facility] [address] Creatinine [Mass/Vol] 0.78 mg/dL Normal 0.60-1.20 [facility] Comment on above: Performed By: #### C BC, LIPASE, CMP #### [facility] [address] Creatinine Clr Calc Pharmacy 69.00 [facility] Comment on above: Performed By: #### C BC, LIPASE, CMP #### [place] [address] [place] GFR/1.73 sq M.predicted MDRD (S/P/Bld) [Vol rate/Area] mL/min/{1.73_m2} [facility] Comment on above: Performed By: #### C BC, LIPASE, CMP #### [address] Globulin (S) [Mass/Vol] 2.7 g/dL [facility] Comment on above: Performed By: #### C BC, LIPASE, CMP #### [address] Glucose [Mass/Vol] 96 mg/dL Normal 70-100 [facility] Comment on above: Result Comment: [facility] Glucose Reference Range is dependent on time and content of last meal. Glucose of more than 200 mg/dL in a nonstressed, ambulatory subject supports the diagnosis of Diabetes Mellitus. ADA recommended reference range Performed By: #### C BC, LIPASE, CMP #### [address] Potassium [Moles/Vol] 3.7 mmol/L Normal 3.5-5.1 [facility] Comment on above: Performed By: #### C BC, LIPASE, CMP #### [address] Protein [Mass/Vol] 7.1 g/dL Normal 6.4-8.9 [facility] Comment on above: Performed By: #### C BC, LIPASE, CMP #### [address] Sodium [Moles/Vol] 140 mmol/L Normal 136-145 [facility] Comment on above: Performed By: #### C BC, LIPASE, CMP #### [address] Urea nitrogen [Mass/Vol] 6 mg/dL Low 7-25 [facility] Comment on above: Performed By: #### C BC, LIPASE, CMP #### [facility] [address] [place] [address] Creatinine [Mass/volume] in Serum or PlasmaOrdered By: Nicole Posadas on 11-09-2022 Creatinine [Mass/Vol] 0.78 mg/dL 0.60-1.20 [facility] ECG 12 lead ECGon 11-09-2022 ECG 12 lead ECG [facility] Main [place] [address] [place] [address] Electrocardiograph Report Signed Patient: Chioma Arciniega MR#: [id number] : 1970 Acct:[id number] Age/Sex: 52 / F ADM Date: 11/09/22 Loc: ER Room: Type: [facility] ER Attending Dr: Ordering Provider: Nicole Posadas APRN Date of Service: 11/09/2205/30/1451 ECG/ECG 12 lead [...] By Agustin Llanes MD 06/29 0147 Normal [facility] Eosinophils Auto (Bld) [#/Vo l]Ordered By: Nicole Posadas on 11-09-2022 Eosinophils (Bld) [#/Vol] 0.1 10*3/uL 0.0-0.45 [facility] Eosinophils/100 WBC Auto (Bl d)Ordered By: Nicole Posadas on 11-09-2022 Eosinophils/100 WBC (Bld) 1.6 % . [facility] Erythrocyte distribution wid th Auto (RBC) [Ratio]Ordered By: Nicole Posadas on 11-09-2022 Erythrocyte distribution width (RBC) [Ratio] 13.6 % 11.9-15.3 [facility] Globulin Calc (S) [Mass/Vol] Ordered By: Nicole Posadas on 11-09-2022 Globulin (S) [Mass/Vol] 2.7 g/dL [facility] Glucose [Mass/volume] in Ser um or PlasmaOrdered By: Nicole Posadas on 11-09-2022 Glucose [Mass/Vol] 96 mg/dL 70-100 [facility] Comment on above: ADA recommended refe rence rangeRandom Glucose Reference Range is dependent on time and content of last meal. Glucose of more than 200 mg/dL in a nonstressed, ambulatory subject supports the diagnosis of Diabetes Mellitus. Hematocrit Auto (Bld) [Volum e fraction]Ordered By: [facility] 11-[facility]22 Hematocrit (Bld) [Volume fraction] 44.4 % 34.0-46.4 [facility] Hemoglobin [Mass/volume] in BloodOrdered By: Nicole [facility] on 11-09-2022 Hemoglobin (Bld) [Mass/Vol] 14.9 g/dL 11.8-15.4 [facility] Ketones Auto test strip (U) [Mass/Vol]Ordered By: [facility] 11-09-2022 Ketones (U) [Mass/Vol] Negative Negative [facility] Leukocytes [#/volume] correc aurelia for nucleated erythrocytes in Blood by Automated counOrdered By: [facility] WBC corrected for nucl RBC Auto (Bld) [#/Vol] 9.3 10*3/uL 3.8-11.6 [facility] Lipaseon 11-09-2022 Lipase [Catalytic activity/Vol] 78.0 U/L Normal 11.0-82.0 [facility] Comment on above: Result Comment: PERF ORMED BY: [facility] [address] [place] [address] PATHOLOGIST SALES APPLICATIONS ENGINEER PAULA RODRIGUES M.D. Performed By: #### U A #### [facility] [address] [id number] [facility] Lipase [Enzymatic activity/v olume] in Serum or PlasmaOrdered By: Nicole Posadas on 11-09-2022 Lipase [Catalytic activity/Vol] 78.0 U/L 11.0-82.0 [facility] Lymphocytes Auto (Bld) [#/Vo l]Ordered By: Nicole Posadas on 11-09-2022 Lymphocytes (Bld) [#/Vol] 2.2 10*3/uL 1.00-4.8 [facility] Lymphocytes/100 WBC Auto (Bl d)Ordered By: Nicole Posadas on 11-09-2022 Lymphocytes/100 WBC (Bld) 24.0 % . [facility] MCH Auto (RBC) [Entitic mass ]Ordered By: Nicole Posadas on 11-09-2022 MCH (RBC) [Entitic mass] 32.8 pg 24.7-34.3 [facility] MCHC Auto (RBC) [Mass/Vol]Or dered By: Nicole Posadas on 11-09-2022 MCHC (RBC) [Mass/Vol] 33.4 g/dL 32.0-35.0 [facility] MCV Auto (RBC) [Entitic vol] Ordered By: Nicole Posadas on 11-09-2022 MCV (RBC) [Entitic vol] 98.2 fL 80-100 [facility] Monocyte distribution width [Entitic volume] in Blood by AutomatedOrdered By: Nicole Posadas on 11-09-2022 Monocyte distribution width Auto (Bld) [Entitic vol] 18.76 % 0.00-20.00 [facility] Monocytes Auto (Bld) [#/Vol] Ordered By: Nicole Posadas on 11-09-2022 Monocytes (Bld) [#/Vol] 0.8 10*3/uL 0.0-0.8 [facility] Monocytes/100 WBC Auto (Bld) Ordered By: Nicole Posadas on 11-09-2022 Monocytes/100 WBC (Bld) 8.1 % . [facility] Neutrophils Auto (Bld) [#/Vo l]Ordered By: Nicole Posadas on 11-09-2022 Neutrophils (Bld) [#/Vol] 6.1 10*3/uL 1.8-7.7 [facility] Neutrophils/100 WBC Auto (Bl d)Ordered By: Nicole Posadas on 11-09-2022 Neutrophils/100 WBC (Bld) 65.4 % . [facility] Nitrite Test strip Ql (U)Ord ered By: Nicole Posadas on 11-09-2022 Nitrite Ql (U) Negative Negative [facility] No Panel InformationOrdered By: Nicole Posadas on 11-09-2022 Estimated GFR (CKD-EPI) > 60.0 mL/Min [facility] Creatinine Clearance (Chem 69.00 [facility] Nucleated erythrocytes [Pres ence] in Blood by Automated countOrdered By: Nicole Posadas on 11-09-2022 Nucleated RBC Auto Ql (Bld) 0.0 /100{WBC} 0-0.5 [facility] Platelet mean volume Auto (B ld) [Entitic vol]Ordered By: Nicole oPsadas on 11-09-2022 Platelet mean volume (Bld) [Entitic vol] 8.3 fL 6.3-10.7 [facility] Platelets Auto (Bld) [#/Vol] Ordered By: Nicole Posadas on 11-09-2022 Platelets (Bld) [#/Vol] 246 10*3/uL 150-450 [facility] Potassium [Moles/volume] in Serum or PlasmaOrdered By: Nicole Posadas on 11-09-2022 Potassium [Moles/Vol] 3.7 mmol/L 3.5-5.1 [facility] Protein Auto test strip (U) [Mass/Vol]Ordered By: Nicole Posadas on 11-09-2022 Protein (U) [Mass/Vol] Negative Negative [facility] Protein [Mass/volume] in Ser um or PlasmaOrdered By: Nicole Posadas on 11-09-2022 Protein [Mass/Vol] 7.1 g/dL 6.4-8.9 [facility] RBC Auto (Bld) [#/Vol]Ordere d By: Nicole Posadas on 11-09-2022 RBC (Bld) [#/Vol] 4.52 10*6/uL 3.60-5.00 [facility] Serum or plasma albumin/glob ulin mass ratioOrdered By: Nicole Posadas on 11-09-2022 Albumin/Globulin [Mass ratio] 1.6 {ratio} [facility] Serum or plasma anion gap de terminationOrdered By: Nicole Posadas on 11-09-2022 Anion gap [Moles/Vol] 8.1 mmol/L 6.0-15.0 [facility] Sodium [Moles/volume] in Ser um or PlasmaOrdered By: Nicole Posadas on 11-09-2022 Sodium [Moles/Vol] 140 mmol/L 136-145 [facility] Specific gravity Auto test s trip (U) [Rel density]Ordered By: Nicole Posadas on 11-09-2022 Specific gravity (U) [Rel density] 1.012 1.001-1.030 [facility] Troponin I High Sensitivityo n 11-09-2022 Troponin I High Sensitivity 3.0 pg/mL Normal 0.0-15.0 [facility] Comment on above: Result Comment: PERF ORMED BY: [place] [address] PATHOLOGIST SALES APPLICATIONS ENGINEER PAULA RODRIGUES M.D. Performed By: #### H S TROP #### [address] Troponin I.cardiac [Mass/vol ume] in Serum or Plasma by Detection limit <= 0.01 ng/Ordered By: Nicole Posadas on 11-09-2022 Troponin I.cardiac DL <= 0.01 ng/mL [Mass/Vol] 3.0 pg/mL 0.0-15.0 [facility] Urea nitrogen [Mass/volume] in Serum or PlasmaOrdered By: Nicole Posadas on 11-09-2022 Urea nitrogen [Mass/Vol] 6 mg/dL 7-25 [facility] Urinalysison 11-09-2022 Appearance (U) Clear Normal Clear [facility] Comment on above: Order Comment: Name Collection Type:: Clean-Voided Midstream Performed By: #### U A #### [facility] [address] [place] [address] [place] Bilirubin,Urine Negative Normal Negative [facility] Comment on above: Order Comment: Name Collection Type:: Clean-Voided Midstream Performed By: #### U A #### [facility] [address] [place] [address] [place] Color (U) Yellow Normal Yellow [facility] Comment on above: Order Comment: Name Collection Type:: Clean-Voided Midstream Performed By: #### U A #### [facility] [address] [place] [address] [place] Glucose Ql (U) Normal Normal Normal [facility] Comment on above: Order Comment: Name Collection Type:: Clean-Voided Midstream Performed By: #### U A #### [place] [address] [place] Ketones Ql (U) Negative Normal Negative [facility] Comment on above: Order Comment: Name Collection Type:: Clean-Voided Midstream Performed By: #### U A #### [place] [address] [place] Leukocyte esterase Test strip Ql (U) Negative Normal Negative [facility] Comment on above: Order Comment: Name Collection Type:: Clean-Voided Midstream Performed By: #### U A #### [facility] [address] [place] [address] [place] Nitrite,Urine Negative Normal Negative [facility] Comment on above: Order Comment: Name Collection Type:: Clean-Voided Midstream Performed By: #### U A #### [facility] [address] [place] [address] [place] Occult Blood,Urine Negative Normal Negative [facility] Comment on above: Order Comment: Name Collection Type:: Clean-Voided Midstream Result Comment: PERF ORMED BY: [place] [address] PATHOLOGIST SALES APPLICATIONS ENGINEER PAULA RODRIGUES M.D. Performed By: #### U A #### [facility] [address] [place] [address] pH (U) 5.5 [pH] Normal 5.0-9.0 [facility] Comment on above: Order Comment: Name Collection Type:: Clean-Voided Midstream Performed By: #### U A #### [address] Protein,Urine Negative Normal Negative [facility] Comment on above: Order Comment: Name Collection Type:: Clean-Voided Midstream Performed By: #### U A #### [address] Specificy [place],Urine 1.012 Normal 1.001-1.030 [facility] Comment on above: Order Comment: Name Collection Type:: Clean-Voided Midstream Performed By: #### U A #### [address] Urobilinogen,Urine Normal Normal Normal [facility] Comment on above: Order Comment: Name Collection Type:: Clean-Voided Midstream Performed By: #### U A #### [facility] [address] [place] [address] Urine clarity by refractomet ry automatedOrdered By: Nicole Posadas on 11-09-2022 Clarity Refractometry automated (U) Clear Clear [facility] Urine glucose measurement by automated test strip (mass/volume)Ordered By: Nicole Posadas on 11-09-2022 Glucose Auto test strip (U) [Mass/Vol] Normal mg/dL Normal [facility] Urine hemoglobin detection b y automated test stripOrdered By: Nicole Posadas on 11-09-2022 Hemoglobin Auto test strip Ql (U) Negative Negative [facility] Urine leukocyte esterase det ection by automated test stripOrdered By: Nicole Posadas on 11-09-2022 Leukocyte esterase Auto test strip Ql (U) Negative Negative [facility] Urobilinogen Auto test strip (U) [Mass/Vol]Ordered By: Nicole Posadas on 11-09-2022 Urobilinogen (U) [Mass/Vol] Normal mg/dL Normal [facility] WBC Auto (Bld) [#/Vol]Ordere d By: Nicole Posadas on 11-09-2022 WBC (Bld) [#/Vol] 9.3 10*3/uL 3.8-11.6 [facility] pH Auto test strip (U)Ordere d By: Nicole Posadas on 11-09-2022 pH (U) 5.5 [pH] 5.0-9.0 [facility] UPPER EUSon 08-12-2022 [facility] Gastroenter[facility] Patient Name: Chioma Rainey Procedure Date: 08/12/2022 11:09 AM Date of : 1970 Admit Type: Outpatient Age: 52 Room: EUS Proc Room 01 Gender: Female Note Status: Finalized Attending MD: Sabrina Dee MD, MPH, [id number] Procedure: Upper EUS Indications: Chronic pancreatitis, Epigastric abdominal pain, Celiac plexus block for pain secondary to chronic pancreatitis, Dysphagia, Follow-up of esophageal stenosis, For therapy of esophageal stenosis Providers: Sabrina Dee MD, MPH (Doctor), Kolby Gifford RN (Nurse), Elba Faustin (Nurse), Mary Gaviria, Gleason Operator (Gleason Operator) Referring MD: Alexander Nichols MD (Referring MD) Medicines: Monitored Anesthesia [...] by the physician, the nurse and the house carpenter helper in the procedure room. Mental Status Examination: [...] endosonographic abnor (more content not included)... LAB, U [facility] Radiology Study observation (narrative) [facility] AMYLASEon 06-13-2022 Amylase [Catalytic activity/Vol] 92 U/L Normal 25-115 [facility] Comment on above: Performed By: #### L IPA, CMP, CRP, NAT #### [facility] [address] [place] [address] Dr. Keturah Fisher CBC AUTO DIFFon 06-13-2022 BASO # 0.1 103/ul Normal 0.0-0.1 [facility] Comment on above: Performed By: #### L IPA, CMP, CRP, NAT #### [facility] [address] [place] [address] Dr. Keturah Fisher Basophils/100 WBC (Bld) 0.7 % Normal 0.2-2.0 [facility] Comment on above: Performed By: #### L IPA, CMP, CRP, NAT #### [facility] [address] [place] [address] Dr. Keturah Fisher EO # 0.1 103/ul Normal 0.0-0.7 [facility] Comment on above: Performed By: #### L IPA, CMP, CRP, NAT #### [facility] [address] [place] [address] Dr. Keturah Fisher Eosinophils/100 WBC (Bld) 1.1 % Normal 0.9-7.0 [facility] Comment on above: Performed By: #### L IPA, CMP, CRP, NAT #### [facility] [address] [place] [address] Dr. Keturah Fisher Erythrocyte distribution width (RBC) [Ratio] 13.0 % Normal 11.0-15.0 [facility] Comment on above: Performed By: #### L IPA, CMP, CRP, NAT #### [facility] [address] [place] [address] Dr. Keturah Fisher Hematocrit (Bld) [Volume fraction] 40.5 % Normal 36.0-48.0 [facility] Comment on above: Performed By: #### L IPA, CMP, CRP, NAT #### [facility] [address] [place] [address] Dr. Keturah Fisher Hemoglobin (Bld) [Mass/Vol] 13.9 g/dL Normal 12.0-16.0 [facility] Comment on above: Performed By: #### L IPA, CMP, CRP, NAT #### [facility] [address] [place] [address] Dr. Keturah Fisher IG # 0.03 10e3/ul Normal 0.00-0.03 [facility] Comment on above: Performed By: #### L IPA, CMP, CRP, NAT #### [facility] [address] [place] [address] Dr. Keturah Fisher IG % 0.3 % Normal 0.0-0.5 [facility] Comment on above: Performed By: #### L IPA, CMP, CRP, NAT #### [facility] [address] [place] [address] Dr. Keturah Fisher LYMPH # 2.9 103/ul Normal 1.2-3.8 [facility] Comment on above: Performed By: #### L IPA, CMP, CRP, NAT #### [facility] [address] [place] [address] Dr. Keturah Fisher Lymphocytes/100 WBC (Bld) 25.0 % Normal 20.5-60.0 [facility] Comment on above: Performed By: #### L IPA, CMP, CRP, NAT #### [facility] [address] [place] [address] Dr. Keturah Fisher MANUAL DIFF REQ NO Normal [facility] Comment on above: Performed By: #### L IPA, CMP, CRP, NAT #### [facility] [address] [place] [address] Dr. Keturah Fisher MCH (RBC) [Entitic mass] 33.3 pg Normal 26.7-34.0 [facility] Comment on above: Performed By: #### L IPA, CMP, CRP, NAT #### [facility] [address] [place] [address] Dr. Keturah Fisher MCHC (RBC) [Mass/Vol] 34.3 g/dL Normal 29.9-35.2 [facility] Comment on above: Performed By: #### L IPA, CMP, CRP, NAT #### [facility] [address] [place] [address] Dr. Keturah Fisher MCV (RBC) [Entitic vol] 96.9 fL Normal 81.0-99.0 [facility] Comment on above: Performed By: #### L IPA, CMP, CRP, NAT #### [facility] [address] [place] [address] Dr. Keturah Fisher MONO # 0.7 103/ul Normal 0.3-0.8 [facility] Comment on above: Performed By: #### L IPA, CMP, CRP, NAT #### [facility] [address] [address] [address] Keturah Fisher Monocytes/100 WBC (Bld) 5.6 % Normal 1.7-12.0 [facility] Comment on above: Performed By: #### L IPA, CMP, CRP, NAT #### [facility] [address] [place] [address] Dr. Keturah Fisher NEUT # 7.8 103/ul Critically high 1.4-6.5 [facility] Comment on above: Performed By: #### L IPA, CMP, CRP, NAT #### [facility] [address] [address] [address] Keturah Fisher Neutrophils/100 WBC (Bld) 67.3 % Normal 43.0-75.0 [facility] Comment on above: Performed By: #### L IPA, CMP, CRP, NAT #### [facility] [address] [place] [address] Dr. Keturah Fisher Platelet mean volume (Bld) [Entitic vol] 9.5 fL Normal 9.5-13.5 [facility] Comment on above: Performed By: #### L IPA, CMP, CRP, NAT #### [facility] [address] [place] [address] Dr. Keturah Fisher PLT 227 103/ul Normal 150-450 [facility] Comment on above: Performed By: #### L IPA, CMP, CRP, NAT #### [facility] [address] [place] [address] Dr. Keturah Fisher RBC 4.18 106/ul Critically low 4.20-5.40 [facility] Comment on above: Performed By: #### L IPA, CMP, CRP, NAT #### [facility] [address] [place] [address] Dr. Keturah Fisher WBC 11.5 103/ul Critically high 4.0-11.0 [facility] Comment on above: Performed By: #### L IPA, CMP, CRP, NAT #### [facility] [address] [place] [address] Dr. Keturah Fisher LIPASEon 06-13-2022 Lipase [Catalytic activity/Vol] 168.0 U/L Normal 73.0-393.0 [facility] Comment on above: Performed By: #### L IPA, CMP, CRP, NAT #### [facility] [address] [place] [address] Dr. Keturah Fisher PROF 14(COMP METB)on 023 Albumin [Mass/Vol] 3.6 g/dL Normal 3.4-5.0 [facility] Comment on above: Performed By: #### L IPA, CMP, CRP, NAT #### [facility] [address] [place] [address] Dr. Keturah Fisher Albumin/Globulin [Mass ratio] 1.1 {ratio} Normal [facility] Comment on above: Performed By: #### L IPA, CMP, CRP, NAT #### [facility] [address] [place] [address] Dr. Keturah Fsiher ALP [Catalytic activity/Vol] 132 U/L Critically high 46-116 [facility] Comment on above: Performed By: #### L IPA, CMP, CRP, NAT #### [facility] [address] [place] [address] Dr. Keturah Fisher ALT [Catalytic activity/Vol] 20 U/L Normal 14-59 [facility] Comment on above: Performed By: #### L IPA, CMP, CRP, NAT #### [facility] [address] [place] [address] Dr. Keturah Fisher Anion gap [Moles/Vol] 13.7 mmol/L Normal [facility] Comment on above: Performed By: #### L IPA, CMP, CRP, NAT #### [facility] [address] [place] [address] Dr. Keturah Fisher AST [Catalytic activity/Vol] 19 U/L Normal 15-37 [facility] Comment on above: Performed By: #### L IPA, CMP, CRP, NAT #### [facility] [address] [place] [address] Dr. Keturah Fisher Bilirubin [Mass/Vol] 0.1 mg/dL Critically low 0.2-1.0 [facility] Comment on above: Performed By: #### L IPA, CMP, CRP, NAT #### [facility] [address] [place] [address] Dr. Keturah Fisher Calcium [Mass/Vol] 10.1 mg/dL Normal 8.5-10.1 [facility] Comment on above: Performed By: #### L IPA, CMP, CRP, NAT #### [facility] [address] [place] [address] Dr. Keturah Fisher Chloride [Moles/Vol] 104 mmol/L Normal 98-107 [facility] Comment on above: Performed By: #### L IPA, CMP, CRP, NAT #### [facility] [address] [place] [address] Dr. Keturah Fisher CO2 [Moles/Vol] 26.7 mmol/L Normal 21.0-32.0 [facility] Comment on above: Performed By: #### L IPA, CMP, CRP, NAT #### [facility] [address] [place] [address] Dr. Keturah Fisher Creatinine [Mass/Vol] 0.83 mg/dL Normal 0.55-1.02 [facility] Comment on above: Performed By: #### L IPA, CMP, CRP, NAT #### [facility] [address] [place] [address] Dr. Keturah Fisher EGFR-AF NIGERIEN >60 Normal >=60 [facility] Comment on above: Performed By: #### L IPA, CMP, CRP, NAT #### [facility] [address] [place] [address] Dr. Keturah Fisher EGFR-NON AF NIGERIEN >60 Normal >=60 [facility] Comment on above: Performed By: #### L IPA, CMP, CRP, NAT #### [facility] [address] [place] [address] Dr. Keturah Fisher Globulin (S) [Mass/Vol] 3.4 g/dL Normal [facility] Comment on above: Performed By: #### L IPA, CMP, CRP, NAT #### [facility] [address] [place] [address] Dr. Keturah Fisher Glucose [Mass/Vol] 115 mg/dL Critically high 74-106 [facility] Comment on above: Performed By: #### L IPA, CMP, CRP, NAT #### [facility] [address] [place] [address] Dr. Keturah Fisher Potassium [Moles/Vol] 3.4 mmol/L Critically low 3.5-5.1 [facility] Comment on above: Performed By: #### L IPA, CMP, CRP, NAT #### [facility] [address] [place] [address] Dr. Keturah Fisher Protein [Mass/Vol] 7.0 g/dL Normal 6.4-8.2 [facility] Comment on above: Performed By: #### L IPA, CMP, CRP, NAT #### [facility] [address] [place] [address] Dr. Keturah Fisher Sodium [Moles/Vol] 141 mmol/L Normal 136-145 [facility] Comment on above: Performed By: #### L IPA, CMP, CRP, NAT #### [facility] [address] [place] [address] Dr. Keturah Fisher Urea nitrogen [Mass/Vol] 9.0 mg/dL Normal 7.0-18.0 [facility] Comment on above: Performed By: #### L IPA, CMP, CRP, NAT #### [facility] [address] [place] [address] Dr. Keturah Fisher Urea nitrogen/Creatinine [Mass ratio] 10.8 mg/mg Normal [facility] Comment on above: Performed By: #### L IPA, CMP, CRP, NAT #### [facility] [address] [place] [address] Dr. Keturah Fisher XR ABD FLAT UP_PA [...] ION KRUSE Date: 2022-06-13 17:10 Normal [facility] AMYLASEon 03-29-2022 Amylase [Catalytic activity/Vol] 141 U/L Critically high 25-115 [facility] Comment on above: Performed By: #### L IVER, LIPA, BMP, NAT ####[facility] [address] [address]Dr. Keturah Fisher CBC AUTO DIFFon 03-29-2022 BASO # 0.1 103/ul Normal 0.0-0.1 [facility] Comment on above: Performed By: #### L IPA, CMP, CRP, NAT #### [facility] [address] [address] [address] Keturah Fisher Basophils/100 WBC (Bld) 0.6 % Normal 0.2-2.0 [facility] Comment on above: Performed By: #### L IPA, CMP, CRP, NAT #### [facility] [address] [address] [address] Keturah Fisher EO # 0.1 103/ul Normal 0.0-0.7 [facility] Comment on above: Performed By: #### L IPA, CMP, CRP, NAT #### [facility] [address] [address] [address] Keturah Fisher Eosinophils/100 WBC (Bld) 0.7 % Critically low 0.9-7.0 [facility] Comment on above: Performed By: #### L IPA, CMP, CRP, NAT #### [facility] [address] [address] [address] Keturah Fisher Erythrocyte distribution width (RBC) [Ratio] 12.9 % Normal 11.0-15.0 [facility] Comment on above: Performed By: #### L IPA, CMP, CRP, NAT #### [facility] [address] [address] [address] Keturah Fisher Hematocrit (Bld) [Volume fraction] 39.7 % Normal 36.0-48.0 [facility] Comment on above: Performed By: #### L IPA, CMP, CRP, NAT #### [facility] [address] [place] [address] Dr. Keturah Fisher Hemoglobin (Bld) [Mass/Vol] 14.7 g/dL Normal 12.0-16.0 [facility] Comment on above: Performed By: #### L IPA, CMP, CRP, NAT #### [facility] [address] [place] [address] Dr. Keturah Fisher IG # 0.04 10e3/ul Critically high 0.00-0.03 [facility] Comment on above: Performed By: #### L IPA, CMP, CRP, NAT #### [facility] [address] [place] [address] Dr. Keturah Fisher IG % 0.4 % Normal 0.0-0.5 [facility] Comment on above: Performed By: #### L IPA, CMP, CRP, NAT #### [facility] [address] [place] [address] Dr. Keturah Fisher LYMPH # 2.1 103/ul Normal 1.2-3.8 [facility] Comment on above: Performed By: #### L IPA, CMP, CRP, NAT #### [facility] [address] [place] [address] Dr. Keturah Fisher Lymphocytes/100 WBC (Bld) 21.2 % Normal 20.5-60.0 [facility] Comment on above: Performed By: #### L IPA, CMP, CRP, NAT #### [facility] [address] [place] [address] Dr. Keturah Fisher MANUAL DIFF REQ NO Normal [facility] Comment on above: Performed By: #### L IPA, CMP, CRP, NAT #### [facility] [address] [place] [address] Dr. Keturah Fisher MCH (RBC) [Entitic mass] 33.0 pg Normal 26.7-34.0 [facility] Comment on above: Performed By: #### L IPA, CMP, CRP, NAT #### [facility] [address] [place] [address] Dr. Keturah Fisher MCHC (RBC) [Mass/Vol] 37.0 g/dL Critically high 29.9-35.2 [facility] Comment on above: Performed By: #### L IPA, CMP, CRP, NAT #### [facility] [address] [place] [address] Dr. Keturah Fisher MCV (RBC) [Entitic vol] 89.0 fL Normal 81.0-99.0 [facility] Comment on above: Performed By: #### L IPA, CMP, CRP, NAT #### [facility] [address] [place] [address] Dr. Keturah Fisher MONO # 1.0 103/ul Critically high 0.3-0.8 [facility] Comment on above: Performed By: #### L IPA, CMP, CRP, NAT #### [facility] [address] [place] [address] Dr. Keturah Fisher Monocytes/100 WBC (Bld) 10.3 % Normal 1.7-12.0 [facility] Comment on above: Performed By: #### L IPA, CMP, CRP, NAT #### [facility] [address] [place] [address] Dr. Keturah Fisher NEUT # 6.5 103/ul Normal 1.4-6.5 [facility] Comment on above: Performed By: #### L IPA, CMP, CRP, NAT #### [facility] [address] [place] [address] Dr. Keturah Fisher Neutrophils/100 WBC (Bld) 66.8 % Normal 43.0-75.0 [facility] Comment on above: Performed By: #### L IPA, CMP, CRP, NAT #### [facility] [address] [place] [address] Dr. Keturah Fisher Platelet mean volume (Bld) [Entitic vol] 9.2 fL Critically low 9.5-13.5 [facility] Comment on above: Performed By: #### L IPA, CMP, CRP, NAT #### [facility] [address] [place] [address] Dr. Keturah Fisher PLT 229 103/ul Normal 150-450 [facility] Comment on above: Performed By: #### L IPA, CMP, CRP, NAT #### [facility] [address] [address] [address] Keturah Fisher RBC 4.46 106/ul Normal 4.20-5.40 [facility] Comment on above: Performed By: #### L IPA, CMP, CRP, NAT #### [facility] [address] [address] [address] Keturah Fisher WBC 9.7 103/ul Normal 4.0-11.0 [facility] Comment on above: Performed By: #### L IPA, CMP, CRP, NAT #### [facility] [address] [place] [address] Dr. Keturah Fisher LACTATE/LACTIC ACIDon 2022 Lactate [Moles/Vol] 0.5 mmol/L Normal 0.4-1.9 [facility] Comment on above: Performed By: #### L IPA, CMP, CRP, NAT #### [facility] [address] [address] [address] Keturah Fisher LIPASEon 03-29-2022 Lipase [Catalytic activity/Vol] 308.0 U/L Normal 73.0-393.0 [facility] Comment on above: Performed By: #### L IVER, LIPA, BMP, NAT ####[facility] [address] [address]Dr. Keturah Fisher LIVER PROFILEon 03-29-2022 Albumin [Mass/Vol] 3.3 g/dL Critically low 3.4-5.[address] [facility] Comment on above: Performed By: #### L IVER, LIPA, BMP, NAT ####[facility] [address] [address]Dr. Keturah Fisher Albumin/Globulin [Mass ratio] 0.8 {ratio} Normal [facility] Comment on above: Performed By: #### L IVER, LIPA, BMP, NAT ####[facility] [address] [address]Dr. Keturah Fisher ALP [Catalytic activity/Vol] 182 U/L Critically high 46-116 [facility] Comment on above: Performed By: #### L IVER, LIPA, BMP, NAT ####[facility] [address] [address]Dr. Keturah Fisher ALT [Catalytic activity/Vol] 16 U/L Normal 14-59 [facility] Comment on above: Performed By: #### L IVER, LIPA, BMP, NAT ####[facility] [address] [address]Dr. Keturah Fisher AST [Catalytic activity/Vol] 26 U/L Normal 15-37 [facility] Comment on above: Performed By: #### L IVER, LIPA, BMP, NAT ####[facility] [address] [address]Dr. Keturah Fisher BILI, CONJUGATED 0.0 mg/dL Normal 0.0-0.2 [facility] Comment on above: Performed By: #### L IVER, LIPA, BMP, NAT ####[facility] [address] [place], [place] [address]Dr. Keturah Fisher Bilirubin [Mass/Vol] 0.3 mg/dL Normal 0.2-1.0 [facility] Comment on above: Performed By: #### L IVER, LIPA, BMP, NAT ####[facility] [address] [address]Dr. Keturah Fisher Globulin (S) [Mass/Vol] 3.9 g/dL Normal [facility] Comment on above: Performed By: #### L IVER, LIPA, BMP, NAT ####[facility] [address] [address]Dr. Keturah Fisher Protein [Mass/Vol] 7.2 g/dL Normal 6.4-8.2 [facility] Comment on above: Performed By: #### L IVER, LIPA, BMP, NAT ####[facility] [address] [address]Dr. Keturah Fisher PROF CHEM 8 (BAS METB)on Anion gap [Moles/Vol] 14.6 mmol/L Normal [facility] Comment on above: Performed By: #### L IVER, LIPA, BMP, NAT ####[facility] [address] [address]Dr. Keturah Fisher Calcium [Mass/Vol] 10.1 mg/dL Normal 8.5-10.1 [facility] Comment on above: Performed By: #### L IVER, LIPA, BMP, NAT ####[facility] [address] [address]Dr. Keturah Fisher Chloride [Moles/Vol] 104 mmol/L Normal 98-107 [facility] Comment on above: Performed By: #### L IVER, LIPA, BMP, NAT ####[facility] [address] [place], [place] [address]Dr. Keturah Fisher CO2 [Moles/Vol] 24.8 mmol/L Normal 21.0-32.0 [facility] Comment on above: Performed By: #### L IVER, LIPA, BMP, NAT ####[facility] [address] [place], [place] [address]Dr. Keturah Fisher Creatinine [Mass/Vol] 0.61 mg/dL Normal 0.55-1.02 [facility] Comment on above: Performed By: #### L IVER, LIPA, BMP, NAT ####[facility] [address] [address]Dr. Keturah Fisher EGFR-AF NIGERIEN >60 Normal >=60 [facility] Comment on above: Performed By: #### L IVER, LIPA, BMP, NAT ####[facility] [address] [address]Dr. Keturah Fisher EGFR-NON AF NIGERIEN >60 Normal >=60 [facility] Comment on above: Performed By: #### L IVER, LIPA, BMP, NAT ####[facility] [address] [address]Dr. Keturah Fisher Glucose [Mass/Vol] 98 mg/dL Normal 74-106 [facility] Comment on above: Performed By: #### L IVREBECA HOPEA, BMP, NAT ####[facility] [address] [address]Dr. Keturah Fisher Potassium [Moles/Vol] 4.4 mmol/L Normal 3.5-5.1 [facility] Comment on above: Performed By: #### L IVHERMINIA LIPA BMP, NAT ####[facility] [address] [address]Dr. Keturah Fisher Sodium [Moles/Vol] 139 mmol/L Normal 136-145 [facility] Comment on above: Performed By: #### L ROB CHIN BMP, NAT ####[facility] [address] [address]Dr. Keturah Fisher Urea nitrogen [Mass/Vol] 7.0 mg/dL Normal 7.0-18.0 [facility] Comment on above: Performed By: #### ROB DOUGHERTY BMP, NAT ####[facility] [address] [address]Dr. Keturah Fisher Urea nitrogen/Creatinine [Mass ratio] 11.5 mg/mg Normal [facility] Comment on above: Performed By: #### ROB DOUGHERTY BMP, NAT ####[facility] [address] [address]Dr. Keturah Fisher Albumin [Mass/volume] in Ser um or PlasmaOrdered By: Agustin Llanes on 03-22-2022 Albumin [Mass/Vol] 4.1 g/dL 3.2-5.5 [facility] Automated erythrocytes count in urine sediment (number/area)Ordered By: Agustin Llanes on 03-22-2022 RBC Auto (Urine sed) [#/Area] 3-4 [HPF] 0-4 [facility] Automated leukocytes count i n urine sediment (number/area)Ordered By: Agustin Llanes on 03-22-2022 WBC Auto (Urine sed) [#/Area] 10-19 [HPF] 0-4 [facility] Basic Metabolic Panelon 03-09 Anion gap [Moles/Vol] 12.6 mmol/L Normal 6.0-15.0 [facility] Comment on above: Performed By: #### H EPATIC, LIPASE, CBC, BMP #### [facility] [address] [place] [address] Calcium [Mass/Vol] 9.9 mg/dL Normal 8.2-10.2 [facility] Comment on above: Performed By: #### H EPATIC, LIPASE, CBC, BMP #### [address] Chloride [Moles/Vol] 103 mmol/L Normal 95-114 [facility] Comment on above: Performed By: #### H EPATIC, LIPASE, CBC, BMP #### [address] CO2 [Moles/Vol] 26.9 mmol/L Normal 22.0-30.0 [facility] Comment on above: Performed By: #### H EPATIC, LIPASE, CBC, BMP #### [address] Creatinine [Mass/Vol] 0.74 mg/dL Normal 0.44-1.03 [facility] Comment on above: Performed By: #### H EPATIC, LIPASE, CBC, BMP #### [address] Creatinine Clr Calc Pharmacy 70.34 [facility] Comment on above: Performed By: #### H EPATIC, LIPASE, CBC, BMP #### [address] Estimated GFR ( [place] > 60 [facility] Comment on above: Result Comment: GFR estimated reference range: According to KDOQI guidelines, <60 ml/min/1.73m2 is sufficient to diagnose a patient with chronic kidney disease. Performed By: #### H EPATIC, LIPASE, CBC, BMP #### [address] Estimated GFR (Non- Am > 60 [facility] Comment on above: Performed By: #### H EPATIC, LIPASE, CBC, BMP #### [facility] [address] Glucose [Mass/Vol] 106 mg/dL High 70-100 [facility] Comment on above: Result Comment: [facility] Glucose Reference Range is dependent on time and content of last meal. Glucose of more than 200 mg/dL in a nonstressed, ambulatory subject supports the diagnosis of Diabetes Mellitus. ADA recommended reference range Performed By: #### H EPATIC, LIPASE, CBC, BMP #### [facility] [address] Potassium [Moles/Vol] 4.5 mmol/L Normal 3.5-5.1 [facility] Comment on above: Performed By: #### H EPATIC, LIPASE, CBC, BMP #### [facility] [address] Sodium [Moles/Vol] 138 mmol/L Normal 136-146 [facility] Comment on above: Performed By: #### H EPATIC, LIPASE, CBC, BMP #### [facility] [address] Urea nitrogen [Mass/Vol] 8 mg/dL Low 9-23 [facility] Comment on above: Performed By: #### H EPATIC, LIPASE, CBC, BMP #### [facility] [address] Basophils Auto (Bld) [#/Vol] Ordered By: Agustin Llanes on 03-22-2022 Basophils (Bld) [#/Vol] 0.1 10*3/uL 0.0-0.2 [facility] Basophils/100 WBC Auto (Bld) Ordered By: Agustin Llanes on 03-22-2022 Basophils/100 WBC (Bld) 0.9 % . [facility] Bilirubin Test strip Ql (U)O rdered By: Agustin Llanes on 03-22-2022 Bilirubin Ql (U) Negative Negative [facility] Color Auto (U)Ordered By: Vita Llanes on 03-22-2022 Color (U) Yellow Yellow [facility] Complete Blood Count Auto Di ffon 03-22-2022 Basophils (Bld) [#/Vol] 0.1 10*3/uL Normal 0.0-0.2 [facility] Comment on above: Result Comment: PERF ORMED BY: [place] [address] PATHOLOGIST [employer] ENGINEER PAULA RODRIGUES M.D. Performed By: #### H EPATIC, LIPASE, CBC, BMP #### [address] Basophils/100 WBC (Bld) 0.9 % Normal . [facility] Comment on above: Performed By: #### H EPATIC, LIPASE, CBC, BMP #### [address] Eosinophils (Bld) [#/Vol] 0.1 10*3/uL Normal 0.0-0.45 [facility] Comment on above: Performed By: #### H EPATIC, LIPASE, CBC, BMP #### [address] Eosinophils/100 WBC (Bld) 0.7 % Normal . [facility] Comment on above: Performed By: #### H EPATIC, LIPASE, CBC, BMP #### [address] Erythrocyte distribution width (RBC) [Ratio] 13.9 % Normal 11.9-15.3 [facility] Comment on above: Performed By: #### H EPATIC, LIPASE, CBC, BMP #### [address] Hematocrit (Bld) [Volume fraction] 45.7 % Normal 34.0-46.4 [facility] Comment on above: Performed By: #### H EPATIC, LIPASE, CBC, BMP #### [address] Hemoglobin (Bld) [Mass/Vol] 15.2 g/dL Normal 11.8-15.4 [facility] Comment on above: Performed By: #### H EPATIC, LIPASE, CBC, BMP #### [place] [address] [place] Lymphocytes (Bld) [#/Vol] 2.2 10*3/uL Normal 1.00-4.8 [facility] Comment on above: Performed By: #### H EPATIC, LIPASE, CBC, BMP #### [address] Lymphocytes/100 WBC (Bld) 18.0 % Normal . [facility] Comment on above: Performed By: #### H EPATIC, LIPASE, CBC, BMP #### [address] MCH (RBC) [Entitic mass] 32.5 pg Normal 24.7-34.3 [facility] Comment on above: Performed By: #### H EPATIC, LIPASE, CBC, BMP #### [address] MCV (RBC) [Entitic vol] 98.0 fL Normal 80-100 [facility] Comment on above: Performed By: #### H EPATIC, LIPASE, CBC, BMP #### [address] Mean Corpuscular HGB Conc 33.2 g/dL Normal 32.0-35.0 [facility] Comment on above: Performed By: #### H EPATIC, LIPASE, CBC, BMP #### [address] Monocytes (Bld) [#/Vol] 1.0 10*3/uL High 0.0-0.8 [facility] Comment on above: Performed By: #### H EPATIC, LIPASE, CBC, BMP #### [address] Monocytes/100 WBC (Bld) 18.78 % Normal 0.00-20.00 [facility] Comment on above: Performed By: #### H EPATIC, LIPASE, CBC, BMP #### [address] Monocytes/100 WBC (Bld) 8.0 % Normal . [facility] Comment on above: Performed By: #### H EPATIC, LIPASE, CBC, BMP #### [address] Neutrophils (Bld) [#/Vol] 9.0 10*3/uL High 1.8-7.7 [facility] Comment on above: Performed By: #### H EPATIC, LIPASE, CBC, BMP #### [address] Neutrophils/100 WBC (Bld) 72.4 % Normal . [facility] Comment on above: Performed By: #### H EPATIC, LIPASE, CBC, BMP #### [address] NRBC% 0.0 /100{WBC} Normal 0-0.5 [facility] Comment on above: Performed By: #### H EPATIC, LIPASE, CBC, BMP #### [address] Platelet mean volume (Bld) [Entitic vol] 8.0 fL Normal 6.3-10.7 [facility] Comment on above: Performed By: #### H EPATIC, LIPASE, CBC, BMP #### [address] Platelets (Bld) [#/Vol] 266 10*3/uL Normal 150-450 [facility] Comment on above: Performed By: #### H EPATIC, LIPASE, CBC, BMP #### [address] RBC (Bld) [#/Vol] 4.67 10*6/uL Normal 3.60-5.00 [facility] Comment on above: Performed By: #### H EPATIC, LIPASE, CBC, BMP #### [address] WBC (Bld) [#/Vol] 12.4 10*3/uL High 3.8-11.6 [facility] Comment on above: Performed By: #### H EPATIC, LIPASE, CBC, BMP #### [place] [address] [place] Creatinine and Glomerular fi ltration rate.predicted panel (S/P/Bld)Ordered By: Agustin Llanes on 03-22-2022 Creatinine [Mass/Vol] 0.74 mg/dL 0.44-1.03 [facility] Dipstick and Microscopicon 0 03-22-2022 Appearance (U) Clear Normal Clear [facility] Comment on above: Order Comment: Name Collection Type:: Clean-Voided Midstream Performed By: #### U A #### [facility] [address] [place] [address] Bacteria,Urine 1+ High None Seen [facility] Comment on above: Order Comment: Name Collection Type:: Clean-Voided Midstream Performed By: #### U A #### [address] Bilirubin,Urine Negative Normal Negative [facility] Comment on above: Order Comment: Name Collection Type:: Clean-Voided Midstream Performed By: #### U A #### [facility] [address] [place] [address] Color (U) Yellow Normal Yellow [facility] Comment on above: Order Comment: Name Collection Type:: Clean-Voided Midstream Performed By: #### U A #### [facility] [address] [place] [address] Glucose Ql (U) Normal Normal Normal [facility] Comment on above: Order Comment: Name Collection Type:: Clean-Voided Midstream Performed By: #### U A #### [facility] [address] [place] [address] [place] Hyaline Casts,Urine 0-8 Normal 0-8 [facility] Comment on above: Order Comment: Name Collection Type:: Clean-Voided Midstream Performed By: #### U A #### [facility] [address] [place] [address] [place] Ketones Ql (U) Negative Normal Negative [facility] Comment on above: Order Comment: Name Collection Type:: Clean-Voided Midstream Performed By: #### U A #### [facility] [address] [place] [address] [place] Leukocyte esterase Test strip Ql (U) 2+ High Negative [facility] Comment on above: Order Comment: Name Collection Type:: Clean-Voided Midstream Performed By: #### U A #### [facility] [address] [place] [address] [place] Nitrite,Urine Positive High Negative [facility] Comment on above: Order Comment: Name Collection Type:: Clean-Voided Midstream Performed By: #### U A #### [address] Occult Blood,Urine Negative Normal Negative [facility] Comment on above: Order Comment: Name Collection Type:: Clean-Voided Midstream Performed By: #### U A #### [address] pH (U) 5.5 [pH] Normal 5.0-9.0 [facility] Comment on above: Order Comment: Name Collection Type:: Clean-Voided Midstream Performed By: #### U A #### [facility] [address] [place] [address] [place] Protein,Urine Negative Normal Negative [facility] Comment on above: Order Comment: Name Collection Type:: Clean-Voided Midstream Performed By: #### U A #### [address] RBC,Urine 3-4 Normal 0-4 [facility] Comment on above: Order Comment: Name Collection Type:: Clean-Voided Midstream Performed By: #### U A #### [facility] [address] [place] [address] Specificy [place],Urine 1.011 Normal 1.001-1.030 [facility] Comment on above: Order Comment: Name Collection Type:: Clean-Voided Midstream Performed By: #### U A #### [facility] [address] [place] [address] Squamous Epithelial Cell,Urine 1-2 Normal 0-2 [facility] Comment on above: Order Comment: Name Collection Type:: Clean-Voided Midstream Performed By: #### U A #### [facility] [address] [place] [address] [place] Urobilinogen,Urine Normal Normal Normal [facility] Comment on above: Order Comment: Name Collection Type:: Clean-Voided Midstream Performed By: #### U A #### [facility] [address] [place] [id number] [place] WBC,Urine 10-19 High 0-4 [facility] Comment on above: Order Comment: Name Collection Type:: Clean-Voided Midstream Performed By: #### U A #### [facility] [address] Direct bilirubin measurement Ordered By: Agustin Llanes on 03-22-2022 Bilirubin.direct [Mass/Vol] 0.3 mg/dL 0.0-0.4 [facility] Eosinophils Auto (Bld) [#/Vo l]Ordered By: Agustin Llanes on 03-22-2022 Eosinophils (Bld) [#/Vol] 0.1 10*3/uL 0.0-0.45 [facility] Eosinophils/100 WBC Auto (Bl d)Ordered By: Agustin Llanes on 03-22-2022 Eosinophils/100 WBC (Bld) 0.7 % . [facility] Erythrocyte distribution wid th Auto (RBC) [Ratio]Ordered By: Agustin lLanes on 03-22-2022 Erythrocyte distribution width (RBC) [Ratio] 13.9 % 11.9-15.3 [facility] Estimated glomerular filtrat ion rate (GFR) non- AmericanOrdered By: Agustin Llanes on 03-22-2022 GFR/1.73 sq M.predicted among non-blacks MDRD (S/P/Bld) [Vol rate/Area] > 60 mL/Min [facility] Globulin Calc (S) [Mass/Vol] Ordered By: Agustin Llanes on 03-22-2022 Globulin (S) [Mass/Vol] 3.1 g/dL [facility] HCG ( test) IA.rapi d Ql (U)Ordered By: Agustin Llanes on 03-22-2022 HCG ( test) Ql (U) Negative [facility] HCG,Urineon 03-22-2022 Beta HCG ( test) Ql (U) Negative Normal [facility] Comment on above: Order Comment: Name Collection Type:: Clean-Voided Midstream Result Comment: PERF ORMED BY: [place] [address] PATHOLOGIST SALES APPLICATIONS ENGINEER PAULA RODRIGUES M.D. Performed By: #### U A #### [facility] [address] [place] [address] Hematocrit Auto (Bld) [Volum e fraction]Ordered By: Agustin Llanes on 03-22-2022 Hematocrit (Bld) [Volume fraction] 45.7 % 34.0-46.4 [facility] Hemoglobin [Mass/volume] in BloodOrdered By: Agustin Llanes on 03-22-2022 Hemoglobin (Bld) [Mass/Vol] 15.2 g/dL 11.8-15.4 [facility] Hepatic Panelon 03-22-2022 Albumin [Mass/Vol] 4.1 g/dL Normal 3.2-5.5 [facility] Comment on above: Performed By: #### H EPATIC, LIPASE, CBC, BMP #### [facility] [address] [place] [address] Albumin/Globulin [Mass ratio] 1.3 {ratio} Normal [facility] Comment on above: Performed By: #### H EPATIC, LIPASE, CBC, BMP #### [address] ALP [Catalytic activity/Vol] 156 U/L High 32-92 [facility] Comment on above: Performed By: #### H EPATIC, LIPASE, CBC, BMP #### [facility] [address] [place] [address] [place] ALT [Catalytic activity/Vol] 19 U/L Normal 10-60 [facility] Comment on above: Performed By: #### H EPATIC, LIPASE, CBC, BMP #### [address] AST [Catalytic activity/Vol] 29 U/L Normal 10-42 [facility] Comment on above: Performed By: #### H EPATIC, LIPASE, CBC, BMP #### [address] [place] [address] [place] Bilirubin [Mass/Vol] 0.5 mg/dL Normal 0.3-1.2 [facility] Comment on above: Performed By: #### H EPATIC, LIPASE, CBC, BMP #### [facility] [address] Bilirubin,Indirect 0.2 mg/dL Normal [facility] Comment on above: Performed By: #### H EPATIC, LIPASE, CBC, BMP #### [facility] [address] Bilirubin.indirect [Mass/Vol] 0.3 mg/dL Normal 0.0-0.4 [facility] Comment on above: Performed By: #### H EPATIC, LIPASE, CBC, BMP #### [facility] [address] Globulin (S) [Mass/Vol] 3.1 g/dL Normal [facility] Comment on above: Performed By: #### H EPATIC, LIPASE, CBC, BMP #### [facility] [address] Protein [Mass/Vol] 7.2 g/dL Normal 6.1-7.9 [facility] Comment on above: Performed By: #### H EPATIC, LIPASE, CBC, BMP #### [address] Ketones Auto test strip (U) [Mass/Vol]Ordered By: Agustin Llanes on 03-22-2022 Ketones (U) [Mass/Vol] Negative Negative [facility] - Chemistry and C hemistry - challengeOrdered By: Agustin Llanes on 03-22-2022 Lipase [Catalytic activity/Vol] 122.0 U/L 22-51 [facility] Laboratory - UrinalysisOrder ed By: Agustin Llanes on 03-22-2022 Hyaline casts LM Ql (Urine sed) 0-8 [LPF] 0-8 [facility] Leukocytes [#/volume] correc aurelia for nucleated erythrocytes in Blood by Automated counOrdered By: Agustin Llanes on 03-22-2022 WBC corrected for nucl RBC Auto (Bld) [#/Vol] 12.4 10*3/uL 3.8-11.6 [facility] Lipaseon 03-22-2022 Lipase [Catalytic activity/Vol] 122.0 U/L High 22-51 [facility] Comment on above: Result Comment: PERF ORMED BY: [facility] [address] [place] [address] PATHOLOGIST SALES APPLICATIONS ENGINEER PAULA RODRIGUES M.D. Performed By: #### H EPATIC, LIPASE, CBC, BMP #### [facility] [address] Lymphocytes Auto (Bld) [#/Vo l]Ordered By: Agustin Llanes on 03-22-2022 Lymphocytes (Bld) [#/Vol] 2.2 10*3/uL 1.00-4.8 [facility] Lymphocytes/100 WBC Auto (Bl d)Ordered By: Agustin Llanes on 03-22-2022 Lymphocytes/100 WBC (Bld) 18.0 % . [facility] MCH Auto (RBC) [Entitic mass ]Ordered By: Agustin Llanes on 03-22-2022 MCH (RBC) [Entitic mass] 32.5 pg 24.7-34.3 [facility] MCHC Auto (RBC) [Mass/Vol]Or dered By: Agustin Llanes on 03-22-2022 MCHC (RBC) [Mass/Vol] 33.2 g/dL 32.0-35.0 [facility] MCV Auto (RBC) [Entitic vol] Ordered By: Agustin Llanes on 03-22-2022 MCV (RBC) [Entitic vol] 98.0 fL 80-100 [facility] Monocyte distribution width [Entitic volume] in Blood by AutomatedOrdered By: Agustin Llanes on 03-22-2022 Monocyte distribution width Auto (Bld) [Entitic vol] 18.78 % 0.00-20.00 [facility] Monocytes Auto (Bld) [#/Vol] Ordered By: Agustin Llanes on 03-22-2022 Monocytes (Bld) [#/Vol] 1.0 10*3/uL 0.0-0.8 [facility] Monocytes/100 WBC Auto (Bld) Ordered By: Agustin Llanes on 03-22-2022 Monocytes/100 WBC (Bld) 8.0 % . [facility] Neutrophils Auto (Bld) [#/Vo l]Ordered By: Agustin Llanes on 03-22-2022 Neutrophils (Bld) [#/Vol] 9.0 10*3/uL 1.8-7.7 [facility] Neutrophils/100 WBC Auto (Bl d)Ordered By: Agustin Llanes on 03-22-2022 Neutrophils/100 WBC (Bld) 72.4 % . [facility] Nitrite Test strip Ql (U)Ord ered By: Agustin Llanes on 03-22-2022 Nitrite Ql (U) Positive Negative [facility] No Panel InformationOrdered By: Agustin Llanes on 03-22-2022 Estimated GFR () > 60 mL/Min [facility] Comment on above: GFR estimated refere nce range: According to KDOQI guidelines, <60 ml/min/1.73m2 is sufficient to diagnose a patient with chronic kidney disease. Pharmacy Creatinine Clearance (Chem 70.34 [facility] Nucleated erythrocytes [Pres ence] in Blood by Automated countOrdered By: Agustin Llanes on 03-22-2022 Nucleated RBC Auto Ql (Bld) 0.0 /100{WBC} 0-0.5 [facility] Platelet mean volume Auto (B ld) [Entitic vol]Ordered By: Agustin Llanes on 03-22-2022 Platelet mean volume (Bld) [Entitic vol] 8.0 fL 6.3-10.7 [facility] Platelets Auto (Bld) [#/Vol] Ordered By: Agustin Llanes on 03-22-2022 Platelets (Bld) [#/Vol] 266 10*3/uL 150-450 [facility] Protein Auto test strip (U) [Mass/Vol]Ordered By: Agustin Llanes on 03-22-2022 Protein (U) [Mass/Vol] Negative Negative [facility] Protein [Mass/volume] in Ser um or PlasmaOrdered By: Agustni Llanes on 03-22-2022 Protein [Mass/Vol] 7.2 g/dL 6.1-7.9 [facility] RBC Auto (Bld) [#/Vol]Ordere d By: Agustin Llanes on 03-22-2022 RBC (Bld) [#/Vol] 4.67 10*6/uL 3.60-5.00 [facility] Serum or plasma alanine hughes otransferase measurement without P-5'-P (enzymatic activiOrdered By: Agustin Llanes on 03-22-2022 ALT No additional P-5'-P [Catalytic activity/Vol] 19 U/L 10-60 [facility] Serum or plasma albumin/glob ulin mass ratioOrdered By: Agustin Llanes on 03-22-2022 Albumin/Globulin [Mass ratio] 1.3 {ratio} [facility] Serum or plasma alkaline jaqueline sphatase measurement (enzymatic activity/volume)Ordered By: Agustin Llanes on 03-22-2022 ALP [Catalytic activity/Vol] 156 U/L 32-92 [facility] Serum or plasma anion gap de terminationOrdered By: Agustin Llanes on 03-22-2022 Anion gap [Moles/Vol] 12.6 mmol/L 6.0-15.0 [facility] Serum or plasma aspartate am inotransferase measurement (enzymatic activity/volume)Ordered By: Agustin Llanes on 03-22-2022 AST [Catalytic activity/Vol] 29 U/L 10-42 [facility] Serum or plasma calcium priscilla urement (mass/volume)Ordered By: Agustin Llanes on 03-22-2022 Calcium [Mass/Vol] 9.9 mg/dL 8.2-10.2 [facility] Serum or plasma chloride daron surement (moles/volume)Ordered By: Agustin Llanes on 03-22-2022 Chloride [Moles/Vol] 103 mmol/L 95-114 [facility] Serum or plasma glucose priscilla urement (mass/volume)Ordered By: Agustin Llanes on 03-22-2022 Glucose [Mass/Vol] 106 mg/dL 70-100 [facility] Comment on above: ADA recommended refe rence rangeRandom Glucose Reference Range is dependent on time and content of last meal. Glucose of more than 200 mg/dL in a nonstressed, ambulatory subject supports the diagnosis of Diabetes Mellitus. Serum or plasma non-glucuron idated bilirubin measurement (mass/volume)Ordered By: Agustin Llanes on 03-22-2022 Bilirubin.indirect [Mass/Vol] 0.2 mg/dL [facility] Serum or plasma potassium me asurement (moles/volume)Ordered By: Agustin Llanes on 03-22-2022 Potassium [Moles/Vol] 4.5 mmol/L 3.5-5.1 [facility] Serum or plasma sodium measu rement (moles/volume)Ordered By: Agustin Llanes on 03-22-2022 Sodium [Moles/Vol] 138 mmol/L 136-146 [facility] Serum or plasma total biliru bin measurement (mass/volume)Ordered By: Agustin Llanes on 03-22-2022 Bilirubin [Mass/Vol] 0.5 mg/dL 0.3-1.2 [facility] Serum or plasma total carbon dioxide measurement (moles/volume)Ordered By: Agustin Llanes on 03-22-2022 CO2 [Moles/Vol] 26.9 mmol/L 22.0-30.0 [facility] Serum or plasma urea nitroge n measurement (mass/volume)Ordered By: Agustin Llanes on 03-22-2022 Urea nitrogen [Mass/Vol] 8 mg/dL 9-23 [facility] Specific gravity Auto test s trip (U) [Rel density]Ordered By: Agustin Llanes on 03-22-2022 Specific gravity (U) [Rel density] 1.011 1.001-1.030 [facility] Squamous epithelial cells de tection in urine sediment by light microscopyOrdered By: Agustin Llanes on 03-22-2022 Epithelial cells.squamous LM Ql (Urine sed) 1-2 [HPF] 0-2 [facility] Urine Cultureon 03-22-2022 Bacteria identified Cx Nom (U) ORGANISM: Escherichia coli (O:ESCCOL) Fitzwilliam Count >100,000 Aerobic SIMI Charge (NMIC56) --- [...] RESISTANT TO ALL B-LACTAM DRUGS. PERFORMED BY: [place] [address] PATHOLOGIST SALES APPLICATIONS ENGINEER PAULA RODRIGUES M.D. [facility] Comment on above: Performed By: #### U A #### [address] Urine bacteria detection by automated methodOrdered By: Agustin Llanes on 03-22-2022 Bacteria Auto Ql (U) 1+ None Seen [facility] Urine clarity by refractomet ry automatedOrdered By: Agustin Llanes on 03-22-2022 Clarity Refractometry automated (U) Clear Clear [facility] Urine glucose measurement by automated test strip (mass/volume)Ordered By: Agustin Llanes on 03-22-2022 Glucose Auto test strip (U) [Mass/Vol] Normal mg/dL Normal [facility] Urine hemoglobin detection b y automated test stripOrdered By: Agustin Llanes on 03-22-2022 Hemoglobin Auto test strip Ql (U) Negative Negative [facility] Urine leukocyte esterase det ection by automated test stripOrdered By: Agustin Llanes on 03-22-2022 Leukocyte esterase Auto test strip Ql (U) 2+ Negative [facility] Urobilinogen Auto test strip (U) [Mass/Vol]Ordered By: Agustin Llanes on 03-22-2022 Urobilinogen (U) [Mass/Vol] Normal mg/dL Normal [facility] WBC Auto (Bld) [#/Vol]Ordere d By: Agustin Llanes on 03-22-2022 WBC (Bld) [#/Vol] 12.4 10*3/uL 3.8-11.6 [facility] pH Auto test strip (U)Ordere d By: Agustin Llanes on 03-22-2022 pH (U) 5.5 [pH] 5.0-9.0 [facility] AMYLASEon 03-19-2022 Amylase [Catalytic activity/Vol] 297 U/L Critically high 25-115 [facility] Comment on above: Performed By: #### L IPA, CMP, CRP, NAT #### [facility] [address] [place] [address] Dr. Keturah Fisher CBC AUTO DIFFon 03-19-2022 BASO # 0.1 103/ul Normal 0.0-0.1 [facility] Comment on above: Performed By: #### L IPA, CMP, CRP, NAT #### [facility] [address] [address] [address] Keturah Fisher Basophils/100 WBC (Bld) 0.6 % Normal 0.2-2.0 [facility] Comment on above: Performed By: #### L IPA, CMP, CRP, NAT #### [facility] [address] [address] [address] Keturah Fisher EO # 0.1 103/ul Normal 0.0-0.7 [facility] Comment on above: Performed By: #### L IPA, CMP, CRP, NAT #### [facility] [address] [address] [address] Keturah Fisher Eosinophils/100 WBC (Bld) 0.5 % Critically low 0.9-7.0 [facility] Comment on above: Performed By: #### L IPA, CMP, CRP, NAT #### [facility] [address] [address] [address] Keturah Fisher Erythrocyte distribution width (RBC) [Ratio] 13.4 % Normal 11.0-15.0 [facility] Comment on above: Performed By: #### L IPA, CMP, CRP, NAT #### [facility] [address] [place] [address] Dr. Keturah Fisher Hemoglobin (Bld) [Mass/Vol] 15.7 g/dL Normal 12.0-16.0 [facility] Comment on above: Performed By: #### L IPA, CMP, CRP, NAT #### [facility] [address] [place] [address] Dr. Keturah Fisher IG # 0.06 10e3/ul Critically high 0.00-0.03 [facility] Comment on above: Performed By: #### L IPA, CMP, CRP, NAT #### [facility] [address] [place] [address] Dr. Keturah Fisher IG % 0.4 % Normal 0.0-0.5 [facility] Comment on above: Performed By: #### L IPA, CMP, CRP, NAT #### [facility] [address] [place] [address] Dr. Keturah Fisher LYMPH # 2.6 103/ul Normal 1.2-3.8 [facility] Comment on above: Performed By: #### L IPA, CMP, CRP, NAT #### [facility] [address] [place] [address] Dr. Keturah Fisher Lymphocytes/100 WBC (Bld) 18.1 % Critically low 20.5-60.0 [facility] Comment on above: Performed By: #### L IPA, CMP, CRP, NAT #### [facility] [address] [place] [address] Dr. Keturah Fisher MANUAL DIFF REQ NO Normal [facility] Comment on above: Performed By: #### L IPA, CMP, CRP, NAT #### [facility] [address] [place] [address] Dr. Keturah Fisher MCH (RBC) [Entitic mass] 32.4 pg Normal 26.7-34.0 [facility] Comment on above: Performed By: #### L IPA, CMP, CRP, NAT #### [facility] [address] [place] [address] Dr. Keturah Fisher MCHC (RBC) [Mass/Vol] 32.5 g/dL Normal 29.9-35.2 [facility] Comment on above: Performed By: #### L IPA, CMP, CRP, NAT #### [facility] [address] [place] [address] Dr. Keturah Fisher MCV (RBC) [Entitic vol] 99.8 fL Critically high 81.0-99.0 [facility] Comment on above: Performed By: #### L IPA, CMP, CRP, NAT #### [facility] [address] [place] [address] Dr. Keturah Fisher MONO # 0.9 103/ul Critically high 0.3-0.8 [facility] Comment on above: Performed By: #### L IPA, CMP, CRP, NAT #### [facility] [address] [place] [address] Dr. Keturah Fisher Monocytes/100 WBC (Bld) 5.9 % Normal 1.7-12.0 [facility] Comment on above: Performed By: #### L IPA, CMP, CRP, NAT #### [facility] [address] [place] [address] Dr. Keturah Fisher NEUT # 10.8 103/ul Critically high 1.4-6.5 [facility] Comment on above: Performed By: #### L IPA, CMP, CRP, NAT #### [facility] [address] [place] [address] Dr. Keturah Fisher Neutrophils/100 WBC (Bld) 74.5 % Normal 43.0-75.0 [facility] Comment on above: Performed By: #### L IPA, CMP, CRP, NAT #### [facility] [address] [place] [address] Dr. Keturah Fisher Platelet mean volume (Bld) [Entitic vol] 9.7 fL Normal 9.5-13.5 [facility] Comment on above: Performed By: #### L IPA, CMP, CRP, NAT #### [facility] [address] [place], [place] [address] Dr. Keturah Fisher PLT 279 103/ul Normal 150-450 [facility] Comment on above: Performed By: #### L IPA, CMP, CRP, NAT #### [facility] [address] [place], [place] [address] Dr. Keturah Fisher RBC 4.84 106/ul Normal 4.20-5.40 [facility] Comment on above: Performed By: #### L IPA, CMP, CRP, NAT #### [facility] [address] [place], [place] [address] Dr. Keturah Fisher WBC 14.5 103/ul Critically high 4.0-11.0 [facility] Comment on above: Performed By: #### L IPA, CMP, CRP, NAT #### [facility] [address] [place], [place] [address] ABD/PELVIS WO CONon [...] by: AGUSTIN HIGHTOWER Date: 2022-03-19 19:10 Normal [facility] LIPASEon 03-19-2022 Lipase [Catalytic activity/Vol] 1573.0 U/L Critically high 73.0-393.0 [facility] Comment on above: Performed By: #### L IPA, CMP, CRP, NAT #### [facility] [address] [address] [address] Keturah Fisher PROF 14(COMP METB)on 023 Albumin [Mass/Vol] 4.3 g/dL Normal 3.4-5.0 [facility] Comment on above: Performed By: #### L IPA, CMP, CRP, NAT #### [facility] [address] [address] [address] Keturah Fisher Albumin/Globulin [Mass ratio] 1.1 {ratio} Normal [facility] Comment on above: Performed By: #### L IPA, CMP, CRP, NAT #### [facility] [address] [address] [address] Keturah Fisher ALP [Catalytic activity/Vol] 222 U/L Critically high 46-116 [facility] Comment on above: Performed By: #### L IPA, CMP, CRP, NAT #### [facility] [address] [address] [address] Keturah Fisher ALT [Catalytic activity/Vol] 18 U/L Normal 14-59 [facility] Comment on above: Performed By: #### L IPA, CMP, CRP, NAT #### [facility] [address] [address] [address] Keturah Fisher Anion gap [Moles/Vol] 10.7 mmol/L Normal [facility] Comment on above: Performed By: #### L IPA, CMP, CRP, NAT #### [facility] [address] [address] [address] Keturah Fisher AST [Catalytic activity/Vol] 19 U/L Normal 15-37 [facility] Comment on above: Performed By: #### L IPA, CMP, CRP, NAT #### [facility] [address] [address] [address] Keturah Fisher Bilirubin [Mass/Vol] 0.2 mg/dL Normal 0.2-1.0 [facility] Comment on above: Performed By: #### L IPA, CMP, CRP, NAT #### [facility] [address] [place] [address] Dr. Keturah Fisher Calcium [Mass/Vol] 10.2 mg/dL Critically high 8.5-10.1 [facility] Comment on above: Performed By: #### L IPA, CMP, CRP, NAT #### [facility] [address] [address] [address] Keturah Fisher Chloride [Moles/Vol] 101 mmol/L Normal 98-107 [facility] Comment on above: Performed By: #### L IPA, CMP, CRP, NAT #### [facility] [address] [place] [address] Dr. Keturah Fisher CO2 [Moles/Vol] 29.1 mmol/L Normal 21.0-32.0 [facility] Comment on above: Performed By: #### L IPA, CMP, CRP, NAT #### [facility] [address] [place] [address] Dr. Keturah Fisher Creatinine [Mass/Vol] 0.73 mg/dL Normal 0.55-1.02 [facility] Comment on above: Performed By: #### L IPA, CMP, CRP, NAT #### [facility] [address] [place] [address] Dr. Keturah Fisher EGFR-AF NIGERIEN >60 Normal >=60 [facility] Comment on above: Performed By: #### L IPA, CMP, CRP, NAT #### [facility] [address] [place] [address] Dr. Keturah Fisher EGFR-NON AF NIGERIEN >60 Normal >=60 [facility] Comment on above: Performed By: #### L IPA, CMP, CRP, NAT #### [facility] [address] [place] [address] Dr. Keturah Fisher Globulin (S) [Mass/Vol] 4.0 g/dL Normal [facility] Comment on above: Performed By: #### L IPA, CMP, CRP, NAT #### [facility] [address] [place] [address] Dr. Keturah Fisher Glucose [Mass/Vol] 92 mg/dL Normal 74-106 [facility] Comment on above: Performed By: #### L IPA, CMP, CRP, NAT #### [facility] [address] [place] [address] Dr. Keturah Fisher Potassium [Moles/Vol] 3.8 mmol/L Normal 3.5-5.1 [facility] Comment on above: Performed By: #### L IPA, CMP, CRP, NAT #### [facility] [address] [place] [address] Dr. Keturah Fisher Protein [Mass/Vol] 8.3 g/dL Critically high 6.4-8.2 [facility] Comment on above: Performed By: #### L IPA, CMP, CRP, NAT #### [facility] [address] [place] [address] Dr. Keturah Fisher Sodium [Moles/Vol] 137 mmol/L Normal 136-145 [facility] Comment on above: Performed By: #### L IPA, CMP, CRP, NAT #### [facility] [address] [place] [address] Dr. Keturah Fisher Urea nitrogen [Mass/Vol] 10.0 mg/dL Normal 7.0-18.0 [facility] Comment on above: Performed By: #### L IPA, CMP, CRP, NAT #### [facility] [address] [address] [address] Keturah Fisher Urea nitrogen/Creatinine [Mass ratio] 13.7 mg/mg Normal [facility] Comment on above: Performed By: #### L IPA, CMP, CRP, NAT #### [facility] [address] [address] [address] Keturah Fisher PROTIMEon 03-19-2022 INR Coag (PPP) [Relative time] {INR} Normal [facility] Comment on above: Performed By: #### P TT, PT ####[facility] [id number] [address]DrGopal Fisher INR GUIDELINES SEE BELOW Normal [facility] Comment on above: Result Comment: KARLY RED INR: 2.0 - 3.0 CONDITIONS NOT LISTED BELOW 2.5 - 3.5 FOR PROSTHETIC HEART VALVE REPLACEMENT 2.5 - 3.5 RECURRENT THROMBOSIS Performed By: #### P TT, PT ####[facility] [id number] [address]DrGopal Fisher PT Coag (PPP) [Time] 9.4 s Normal 9.0-11.6 [facility] Comment on above: Performed By: #### P TT, PT ####[facility] [address] [address]DrGopal Fihser PTTon 03-19-2022 aPTT Coag (Bld) [Time] 26.1 s Normal 22.3-36.2 [facility] Comment on above: Performed By: #### P TT, PT ####[facility] [address] [address]Dr. Keturah Fisher TROPONIN, HIGH SENSITIVITYon 03-19-2022 HSTROP 4.0 pg/mL Normal 4.0-51.3 [facility] Comment on above: Result Comment: CUT- OFF POINTS HAVE BEEN ESTABLISHED BASED ON THE FOURTH UNIVERSAL DEFINITIONS OF MYOCARDIAL INFARCTION. THE UPPER REFERENCE LIMIT (URL) OF TROPONIN, DEFINED THE 99TH PERCENTILE OF cTnI DISTRIBUTION IN A REFERENCE POPULATION, HAS BEEN CONFIRMED THE DECISION THRESHOLD FOR DE DIAGNOSIS. Performed By: #### L IPA, CMP, CRP, NAT #### [facility] [address] [address] [address] 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 Refer to note in patient chart for documentation of history and physical. Referring MD: Alexander Nichols MD (Referring MD) Medicines: Monitored Anesthesia [...] verified by the physician, the nurse, the house carpenter helper and the biological lab technician in the procedure room. Mental Status [...] si (more content not included)... LAB, [facility] Radiology Study observation (narrative) [facility] BONE DENSITY AXIAL (HIP, PEL VIS, SPINE)on 01-27-2022 BONE DENSITY AXIAL (HIP, PELVIS, SPINE) EXAM: BONE DENSITY AXIAL (HIP, PELVIS, SPINE) 01/27/2022 15:34 PM TECHNIQUE: DXA scanning using a [employer] Advance bone densitometer at the [facility] was performed on 01/27/2022 15:34 PM [...] interpreted this study is a Certified Clinical Vegetable Grader by the International Society of Clinical Densitometry Maulik Reed M.D., CCD. [facility] IMPRESSION: Based on BMD and WHO [...] interpreted this study is a Certified Clinical Vegetable Grader by the International Society of Clinical Densitometry Maulik Reed M.D., CCD. OLOGY EXAM: BONE DENSITY AXIAL (HIP, PELVIS, SPINE) 01/27/2022 15:34 PM TECHNIQUE: DXA scanning using a [employer] Advance bone densitometer at the [facility] was performed on 01/27/2022 15:34 PM [...] 15:34 PM TECHNIQUE: DXA scanning using a [employer] Advance bone densitometer at the [facility] was performed on 01/27/2022 15:34 PM [...] interpreted this study is a Certified Clinical Vegetable Grader by the International Society of Clinical Densitometry Maulik Reed M.D., CCD. [facility] Radiology Study observation (narrative) [facility] BONE DENSITY AXIAL (HIP, PEL VIS, SPINE)Ordered By: Maulik Reed on 01-27-2022 [facility] Work Phone: CBC AUTO DIFFon 01-15-2022 BASO # 0.1 103/ul Normal 0.0-0.1 [facility] Comment on above: Performed By: #### C BC ####[facility] [address] [place] [address]Dr. Keturah Phillip Basophils/100 WBC (Bld) 0.9 % Normal 0.2-2.0 [facility] Comment on above: Performed By: #### C BC ####[facility] [address] [place], [place] [address]Dr. Keturah Phillip EO # 0.2 103/ul Normal 0.0-0.7 [facility] Comment on above: Performed By: #### C BC ####[facility] [address] [place], [place] [address]Dr. Keturah Fisher Eosinophils/100 WBC (Bld) 2.8 % Normal 0.9-7.0 [facility] Comment on above: Performed By: #### C BC ####[facility] Q[address] [place], [place] [address]Dr. Elisaeli Fisher Erythrocyte distribution width (RBC) [Ratio] 12.9 % Normal 11.0-15.0 [facility] Comment on above: Performed By: #### C BC ####[facility] [address] [place], [place] [address]Dr. Keturah Fisher Hematocrit (Bld) [Volume fraction] 41.7 % Normal 36.0-48.0 [facility] Comment on above: Performed By: #### C BC ####[facility] [address] [place], [place] [address]Dr. Keturah Fisher Hemoglobin (Bld) [Mass/Vol] 14.0 g/dL Normal 12.0-16.0 [facility] Comment on above: Performed By: #### C BC ####[facility] [address] [place], [place] [address]Dr. Keturah Fisher IG # 0.01 10e3/ul Normal 0.00-0.03 [facility] Comment on above: Performed By: #### C BC ####[facility] [address] [place] [id number]. Keturah Phillip IG % 0.1 % Normal 0.0-0.5 [facility] Comment on above: Performed By: #### C BC ####[facility] [address] [place] [address]Dr. Keturah Phillip LYMPH # 2.4 103/ul Normal 1.2-3.8 [facility] Comment on above: Performed By: #### C BC ####[facility] [address] [place] [id number]. Keturah Phillip Lymphocytes/100 WBC (Bld) 32.0 % Normal 20.5-60.0 [facility] Comment on above: Performed By: #### C BC ####[facility] [address] [place] [address]Dr. Elisaeli Fisher MANUAL DIFF REQ NO Normal [facility] Comment on above: Performed By: #### C BC ####[facility] [address] [place] [address]Dr. Keturah Phillip MCH (RBC) [Entitic mass] 32.6 pg Normal 26.7-34.0 [facility] Comment on above: Performed By: #### C BC ####[facility] [address] [place], [place] [address]Dr. Keturah Fisher MCHC (RBC) [Mass/Vol] 33.6 g/dL Normal 29.9-35.2 [facility] Comment on above: Performed By: #### C BC ####[facility] [address] [place] [address]Dr. Keturah Phillip MCV (RBC) [Entitic vol] 97.0 fL Normal 81.0-99.0 [facility] Comment on above: Performed By: #### C BC ####[facility] [address] [place], [place] [address]Dr. Keturah Fisher MONO # 0.7 103/ul Normal 0.3-0.8 [facility] Comment on above: Performed By: #### C BC ####[facility] [address] [place] [address]Dr. Keturah Fisher Monocytes/100 WBC (Bld) 9.5 % Normal 1.7-12.0 [facility] Comment on above: Performed By: #### C BC ####[facility] [address] [place] [address]Dr. Keturah Fisher NEUT # 4.1 103/ul Normal 1.4-6.5 [facility] Comment on above: Performed By: #### C BC ####[facility] [address] [place] [address]Dr. Keturah Fisher Neutrophils/100 WBC (Bld) 54.7 % Normal 43.0-75.0 [facility] Comment on above: Performed By: #### C BC ####[facility] [address] [place] [address]Dr. Keturah Fisher Platelet mean volume (Bld) [Entitic vol] 9.6 fL Normal 9.5-13.5 [facility] Comment on above: Performed By: #### C BC ####[facility] [address] [place] [address]Dr. Keturah Fisher PLT 235 103/ul Normal 150-450 [facility] Comment on above: Performed By: #### C BC ####[facility] [address] [place] [address]Dr. Keturah Fisher RBC 4.30 106/ul Normal 4.20-5.40 [facility] Comment on above: Performed By: #### C BC ####[facility] [address] [place] [id number]. Keturah Fisher WBC 7.6 103/ul Normal 4.0-11.0 [facility] Comment on above: Performed By: #### C BC ####[facility] [address] [place] [id number]. Keturah Fisher ER URINE PROFILEon 2 Bilirubin Ql (U) Negative Normal NEGATIVE [facility] Comment on above: Performed By: #### L IPA, CMP, CRP, NAT #### [facility] [address] [place] [address] [address] Keturah Fisher Clarity (U) CLEAR Normal CLEAR [facility] Comment on above: Performed By: #### L IPA, CMP, CRP, NAT #### [facility] [address] [place] [address] Dr. Keturah Fisher Color (U) YELLOW Normal YELLOW [facility] Comment on above: Performed By: #### L IPA, CMP, CRP, NAT #### [facility] [address] [place] [address] Dr. Keturah Fisher ERUAHD A micrscopic examination will be performed if indicated. Normal [facility] Comment on above: Performed By: #### L IPA, CMP, CRP, NAT #### [facility] [address] [place] [address] Dr. Keturah Fisher Glucose Ql (U) Negative Normal NEGATIVE [facility] Comment on above: Performed By: #### L IPA, CMP, CRP, NAT #### [facility] [address] [place] [address] Dr. Keturah Fisher Hemoglobin Ql (U) Negative Normal NEGATIVE [facility] Comment on above: Performed By: #### L IPA, CMP, CRP, NAT #### [facility] [address] [place] [address] Dr. Keturah Fisher Ketones Ql (U) Negative Normal NEGATIVE [facility] Comment on above: Performed By: #### L IPA, CMP, CRP, NAT #### [facility] [address] [place] [address] Dr. Keturah Fisher LEUKOCYTES Negative Normal NEGATIVE [facility] Comment on above: Performed By: #### L IPA, CMP, CRP, NAT #### [facility] [address] [place] [address] Dr. Keturah Fisher Nitrite Ql (U) Negative Normal NEGATIVE [facility] Comment on above: Performed By: #### L IPA, CMP, CRP, NAT #### [facility] [address] [place] [address] Dr. Keturah Fisher pH (U) 5.5 [pH] Normal 5-9 [facility] Comment on above: Performed By: #### L IPA, CMP, CRP, NAT #### [facility] [address] [place] [address] Dr. Keturah Fisher SPEC GRAVITY >=1.030 Abnormal 1.005-<=1.0 25 [facility] Comment on above: Performed By: #### L IPA, CMP, CRP, NAT #### [facility] [address] [place] [address] Dr. Keturah Fisher UA PROTEIN Negative Normal NEGATIVE/ TRACE [facility] Comment on above: Performed By: #### L IPA, CMP, CRP, NAT #### [facility] [address] [place] [address] Dr. Keturah Fisher UR MICRO IND NOT INDICATED Normal [facility] Comment on above: Performed By: #### L IPA, CMP, CRP, NAT #### [facility] [address] [place] [address] Dr. Keturah Fisher Urobilinogen Qn (U) 0.2 {Marizol'U}/dL Normal 0.2 - 1. 0 [facility] Comment on above: Performed By: #### L IPA, CMP, CRP, NAT #### [facility] [address] [place] [address] Dr. Keturah Fisher LIPASEon 01-15-2022 Lipase [Catalytic activity/Vol] 572.0 U/L Critically high 73.0-393.0 [facility] Comment on above: Performed By: #### C BC #### [facility] [address] [place] [address] Dr. Keturah Fisher URon 01-15-2022 , QUAL Negative Normal NEGATIVE [facility] Comment on above: Performed By: #### L IPA, CMP, CRP, NAT #### [facility] [address] [place] [address] Dr. Keturah Fisher PROF 14(COMP METB)on 022 Albumin [Mass/Vol] 3.8 g/dL Normal 3.4-5.0 [facility] Comment on above: Performed By: #### C BC #### [facility] [address] [place] [address] Dr. Keturah Fisher Albumin/Globulin [Mass ratio] 1.1 {ratio} Normal [facility] Comment on above: Performed By: #### C BC #### [facility] [address] [place] [address] Dr. Keturah Fisher ALP [Catalytic activity/Vol] 151 U/L Critically high 46-116 [facility] Comment on above: Performed By: #### C BC #### [facility] [address] [place] [address] [address] Keturah Fisher ALT [Catalytic activity/Vol] 14 U/L Normal 14-59 [facility] Comment on above: Performed By: #### C BC #### [facility] [address] [place] [address] Dr. Keturah Fisher Anion gap [Moles/Vol] 5.5 mmol/L Normal [facility] Comment on above: Performed By: #### C BC #### [facility] [address] [place] [address] Dr. Keturah Fisher AST [Catalytic activity/Vol] 16 U/L Normal 15-37 [facility] Comment on above: Performed By: #### C BC #### [facility] [address] [place] [address] Dr. Keturah Fisher Bilirubin [Mass/Vol] 0.1 mg/dL Critically low 0.2-1.0 [facility] Comment on above: Performed By: #### C BC #### [facility] [address] [place] [address] Dr. Keturah Fisher Calcium [Mass/Vol] 9.5 mg/dL Normal 8.5-10.1 [facility] Comment on above: Performed By: #### C BC #### [facility] [address] [place] [address] Dr. Keturah Fisher Chloride [Moles/Vol] 105 mmol/L Normal 98-107 [facility] Comment on above: Performed By: #### C BC #### [facility] [address] [place] [address] Dr. Keturah Fisher CO2 [Moles/Vol] 30.0 mmol/L Normal 21.0-32.0 [facility] Comment on above: Performed By: #### C BC #### [facility] [address] [place] [address] [address] Keturah Fisher Creatinine [Mass/Vol] 0.90 mg/dL Normal 0.55-1.02 [facility] Comment on above: Performed By: #### C BC #### [facility] [address] [place] [address] [address] Keturah Fisher EGFR-AF NIGERIEN >60 Normal >=60 [facility] Comment on above: Performed By: #### C BC #### [facility] [address] [place] [address] [address] Keturah Fisher EGFR-NON AF NIGERIEN >60 Normal >=60 [facility] Comment on above: Performed By: #### C BC #### [facility] [address] [place] [address] Dr. Keturah Fisher Globulin (S) [Mass/Vol] 3.4 g/dL Normal [facility] Comment on above: Performed By: #### C BC #### [facility] [address] [place] [address] Dr. Keturah Fisher Glucose [Mass/Vol] 82 mg/dL Normal 74-106 [facility] Comment on above: Performed By: #### C BC #### [facility] [address] [place] [address] Dr. Keturah Fisher Potassium [Moles/Vol] 3.5 mmol/L Normal 3.5-5.1 [facility] Comment on above: Performed By: #### C BC #### [facility] [address] [place] [address] Dr. Keturah Fisher Protein [Mass/Vol] 7.2 g/dL Normal 6.4-8.2 [facility] Comment on above: Performed By: #### C BC #### [facility] [address] [place] [address] Dr. Keturah Fisher Sodium [Moles/Vol] 137 mmol/L Normal 136-145 [facility] Comment on above: Performed By: #### C BC #### [facility] [address] [place], [place] [address] Dr. Keturah Fisher Urea nitrogen [Mass/Vol] 12.0 mg/dL Normal 7.0-18.0 [facility] Comment on above: Performed By: #### C BC #### [facility] [address] [place] [address] [address] Keturah Fisher Urea nitrogen/Creatinine [Mass ratio] 13.3 mg/mg Normal [facility] Comment on above: Performed By: #### C BC #### [facility] [address] [place], [place] [address] Dr. Keturah Fisher Basic Metabolic Panelon 12-07 Anion gap [Moles/Vol] 16.0 mmol/L High 6.0-15.0 [facility] Comment on above: Performed By: #### U A #### [facility] [address] Calcium [Mass/Vol] 10.2 mg/dL Normal 8.2-10.2 [facility] Comment on above: Performed By: #### U A #### [facility] [address] [place] [id number] [place] Chloride [Moles/Vol] 102 mmol/L Normal 95-114 [facility] Comment on above: Performed By: #### U A #### [facility] [address] [place] [id number] [place] CO2 [Moles/Vol] 23.6 mmol/L Normal 22.0-30.0 [facility] Comment on above: Performed By: #### U A #### [facility] [address] [place] [id number] [place] Creatinine [Mass/Vol] 0.90 mg/dL Normal 0.44-1.03 [facility] Comment on above: Performed By: #### U A #### [facility] [address] [place] [id number] [place] Creatinine Clr Calc Pharmacy 57.83 Normal [facility] Comment on above: Performed By: #### U A #### [facility] [address] [place] [id number] [place] Estimated GFR ( [place] > 60 Normal [facility] Comment on above: Result Comment: GFR estimated reference range: According to KDOQI guidelines, <60 ml/min/1.73m2 is sufficient to diagnose a patient with chronic kidney disease. Performed By: #### U A #### [facility] [address] Estimated GFR (Non- Am > 60 Normal [facility] Comment on above: Performed By: #### U A #### [address] Glucose [Mass/Vol] 88 mg/dL Normal 70-100 [facility] Comment on above: Result Comment: [place] Glucose Reference Range is dependent on time and content of last meal. Glucose of more than 200 mg/dL in a nonstressed, ambulatory subject supports the diagnosis of Diabetes Mellitus. ADA recommended reference range Performed By: #### U A #### [address] Potassium [Moles/Vol] 3.6 mmol/L Normal 3.5-5.1 [facility] Comment on above: Performed By: #### U A #### [place] [address] [place] Sodium [Moles/Vol] 138 mmol/L Normal 136-146 [facility] Comment on above: Performed By: #### U A #### [place] [address] [place] Urea nitrogen [Mass/Vol] 7 mg/dL Low 9-23 [facility] Comment on above: Performed By: #### U A #### [address] Complete Blood Count Auto Di ffon 12-19-2021 Basophils (Bld) [#/Vol] 0.1 10*3/uL Normal 0.0-0.2 [facility] Comment on above: Result Comment: PERF ORMED BY: [place] [address] PATHOLOGIST SALES APPLICATIONS ENGINEER PAULA RODRIGUES M.D. Performed By: #### U A #### [address] Basophils/100 WBC (Bld) 0.8 % Normal . [facility] Comment on above: Performed By: #### U A #### [address] Eosinophils (Bld) [#/Vol] 0.1 10*3/uL Normal 0.0-0.45 [facility] Comment on above: Performed By: #### U A #### [address] Eosinophils/100 WBC (Bld) 0.9 % Normal . [facility] Comment on above: Performed By: #### U A #### [address] Erythrocyte distribution width (RBC) [Ratio] 13.7 % Normal 11.9-15.3 [facility] Comment on above: Performed By: #### U A #### [address] Hematocrit (Bld) [Volume fraction] 44.3 % Normal 34.0-46.4 [facility] Comment on above: Performed By: #### U A #### [address] Hemoglobin (Bld) [Mass/Vol] 14.6 g/dL Normal 11.8-15.4 [facility] Comment on above: Performed By: #### U A #### [address] Lymphocytes (Bld) [#/Vol] 3.0 10*3/uL Normal 1.00-4.8 [facility] Comment on above: Performed By: #### U A #### [address] Lymphocytes/100 WBC (Bld) 24.0 % Normal . [facility] Comment on above: Performed By: #### U A #### [address] MCH (RBC) [Entitic mass] 32.2 pg Normal 24.7-34.3 [facility] Comment on above: Performed By: #### U A #### [address] MCV (RBC) [Entitic vol] 97.6 fL Normal 80-100 [facility] Comment on above: Performed By: #### U A #### [address] Mean Corpuscular HGB Conc 33.0 g/dL Normal 32.0-35.0 [facility] Comment on above: Performed By: #### U A #### [address] Monocytes (Bld) [#/Vol] 1.0 10*3/uL High 0.0-0.8 [facility] Comment on above: Performed By: #### U A #### [address] Monocytes/100 WBC (Bld) 7.6 % Normal . [facility] Comment on above: Performed By: #### U A #### [address] Neutrophils (Bld) [#/Vol] 8.5 10*3/uL High 1.8-7.7 [facility] Comment on above: Performed By: #### U A #### [address] Neutrophils/100 WBC (Bld) 66.7 % Normal . [facility] Comment on above: Performed By: #### U A #### [place] [address] [place] Nucleated RBC/100 WBC (Bld) [Ratio] 0.0 % Normal 0-0.5 [facility] Comment on above: Performed By: #### U A #### [address] Platelet mean volume (Bld) [Entitic vol] 8.2 fL Normal 6.3-10.7 [facility] Comment on above: Performed By: #### U A #### [facility] [address] [place] [address] Platelets (Bld) [#/Vol] 308 10*3/uL Normal 150-450 [facility] Comment on above: Performed By: #### U A #### [address] RBC (Bld) [#/Vol] 4.54 10*6/uL Normal 3.60-5.00 [facility] Comment on above: Performed By: #### U A #### [address] WBC (Bld) [#/Vol] 12.7 10*3/uL High 4.5-11.0 [facility] Comment on above: Performed By: #### U A #### [facility] [address] [place] [address] Hepatic Panelon 12-19-2021 Albumin [Mass/Vol] 4.0 g/dL Normal 3.2-5.5 [facility] Comment on above: Performed By: #### U A #### [facility] [address] [place] [address] Albumin/Globulin [Mass ratio] 1.4 {ratio} Normal [facility] Comment on above: Performed By: #### U A #### [facility] [address] [place] [address] ALP [Catalytic activity/Vol] 136 U/L High 32-92 [facility] Comment on above: Performed By: #### U A #### [facility] [address] [place] [address] ALT [Catalytic activity/Vol] 14 U/L Normal 10-60 [facility] Comment on above: Performed By: #### U A #### [address] AST [Catalytic activity/Vol] 25 U/L Normal 10-42 [facility] Comment on above: Performed By: #### U A #### [place] [address] Bilirubin [Mass/Vol] 0.5 mg/dL Normal 0.3-1.2 [facility] Comment on above: Performed By: #### U A #### [address] Bilirubin,Indirect 0.4 mg/dL Normal [facility] Comment on above: Performed By: #### U A #### [address] Bilirubin.indirect [Mass/Vol] 0.1 mg/dL Normal 0.0-0.4 [facility] Comment on above: Performed By: #### U A #### [address] Globulin (S) [Mass/Vol] 2.8 g/dL Normal [facility] Comment on above: Performed By: #### U A #### [address] Protein [Mass/Vol] 6.8 g/dL Normal 6.1-7.9 [facility] Comment on above: Performed By: #### U A #### [address] Lipaseon 12-19-2021 Lipase [Catalytic activity/Vol] 99.0 U/L High 22-51 [facility] Comment on above: Result Comment: PERF ORMED BY: [place] [address] PATHOLOGIST SALES APPLICATIONS ENGINEER PAULA RODRIGUES M.D. Performed By: #### U A #### [address] Urinalysison 12-19-2021 Appearance (U) Clear Normal Clear [facility] Comment on above: Order Comment: Name Collection Type:: Clean-Voided Midstream Performed By: #### U A #### [address] Bilirubin,Urine Negative Normal Negative [facility] Comment on above: Order Comment: Name Collection Type:: Clean-Voided Midstream Performed By: #### U A #### [facility] [address] [place] [address] [place] Color (U) Yellow Normal Yellow [facility] Comment on above: Order Comment: Name Collection Type:: Clean-Voided Midstream Performed By: #### U A #### [facility] [address] [place] [address] Glucose Ql (U) Normal Normal Normal [facility] Comment on above: Order Comment: Name Collection Type:: Clean-Voided Midstream Performed By: #### U A #### [facility] [address] [place] [address] Ketones Ql (U) Trace High Negative [facility] Comment on above: Order Comment: Name Collection Type:: Clean-Voided Midstream Performed By: #### U A #### [facility] [address] [place] [address] Leukocyte esterase Test strip Ql (U) Negative Normal Negative [facility] Comment on above: Order Comment: Name Collection Type:: Clean-Voided Midstream Performed By: #### U A #### [facility] [address] [place] [address] [place] Nitrite,Urine Negative Normal Negative [facility] Comment on above: Order Comment: Name Collection Type:: Clean-Voided Midstream Performed By: #### U A #### [facility] [address] [place] [address] Occult Blood,Urine Negative Normal Negative [facility] Comment on above: Order Comment: Name Collection Type:: Clean-Voided Midstream Result Comment: PERF ORMED BY: [place] [address] PATHOLOGIST SALES APPLICATIONS ENGINEER PAULA RODRIGUES M.D. Performed By: #### U A #### [place] [address] [place] pH (U) 5.0 [pH] Normal 5.0-9.0 [facility] Comment on above: Order Comment: Name Collection Type:: Clean-Voided Midstream Performed By: #### U A #### [facility] [address] Protein,Urine Negative Normal Negative [facility] Comment on above: Order Comment: Name Collection Type:: Clean-Voided Midstream Performed By: #### U A #### [facility] [address] [place] [address] Specificy [place],Urine 1.024 Normal 1.001-1.030 [facility] Comment on above: Order Comment: Name Collection Type:: Clean-Voided Midstream Performed By: #### U A #### [facility] [address] [place] [address] Urobilinogen,Urine Normal Normal Normal [facility] Comment on above: Order Comment: Name Collection Type:: Clean-Voided Midstream Performed By: #### U A #### [address] AMYLASEon 12-13-2021 Amylase [Catalytic activity/Vol] 268 U/L Critically high 25-115 [facility] Comment on above: Performed By: #### L IPA, CMP, CRP, NAT #### [facility] [address] [place] [address] Dr. Keturah Fisher CBC AUTO DIFFon 12-13-2021 BASO # 0.1 103/ul Normal 0.0-0.1 [facility] Comment on above: Performed By: #### L IPA, CMP, CRP, NAT #### [facility] [address] [address] [address] Keturah Fisher Basophils/100 WBC (Bld) 0.6 % Normal 0.2-2.0 [facility] Comment on above: Performed By: #### L IPA, CMP, CRP, NAT #### [facility] [address] [address] [address] Keturah Fisher EO # 0.1 103/ul Normal 0.0-0.7 [facility] Comment on above: Performed By: #### L IPA, CMP, CRP, NAT #### [facility] [address] [place] [address] Dr. Keturah Fisher Eosinophils/100 WBC (Bld) 1.2 % Normal 0.9-7.0 [facility] Comment on above: Performed By: #### L IPA, CMP, CRP, NAT #### [facility] [address] [place] [address] Dr. Keturah Fisher Erythrocyte distribution width (RBC) [Ratio] 13.2 % Normal 11.0-15.0 [facility] Comment on above: Performed By: #### L IPA, CMP, CRP, NAT #### [facility] [address] [place] [address] Dr. Keturah Fisher Hematocrit (Bld) [Volume fraction] 44.7 % Normal 36.0-48.0 [facility] Comment on above: Performed By: #### L IPA, CMP, CRP, NAT #### [facility] [address] [place] [address] Dr. Keturah Fisher Hemoglobin (Bld) [Mass/Vol] 14.7 g/dL Normal 12.0-16.0 [facility] Comment on above: Performed By: #### L IPA, CMP, CRP, NAT #### [facility] [address] [place] [address] Dr. Keturah Fisher IG # 0.03 10e3/ul Normal 0.00-0.03 [facility] Comment on above: Performed By: #### L IPA, CMP, CRP, NAT #### [facility] [address] [place] [address] Dr. Keturah Fisher IG % 0.3 % Normal 0.0-0.5 [facility] Comment on above: Performed By: #### L IPA, CMP, CRP, NAT #### [facility] [address] [place] [address] Dr. Keturah Fisher LYMPH # 3.6 103/ul Normal 1.2-3.8 [facility] Comment on above: Performed By: #### L IPA, CMP, CRP, NAT #### [facility] [address] [place] [address] Dr. Keturah Fisher Lymphocytes/100 WBC (Bld) 32.7 % Normal 20.5-60.0 [facility] Comment on above: Performed By: #### L IPA, CMP, CRP, NAT #### [facility] [address] [place] [address] Dr. Keturah Fisher MANUAL DIFF REQ NO Normal [facility] Comment on above: Performed By: #### L IPA, CMP, CRP, NAT #### [facility] [address] [place] [address] Dr. Keturah Fisher MCH (RBC) [Entitic mass] 32.2 pg Normal 26.7-34.0 [facility] Comment on above: Performed By: #### L IPA, CMP, CRP, NAT #### [facility] [address] [place] [address] Dr. Keturah Fisher MCHC (RBC) [Mass/Vol] 32.9 g/dL Normal 29.9-35.2 [facility] Comment on above: Performed By: #### L IPA, CMP, CRP, NAT #### [facility] [address] [place] [address] Dr. Keturah Fisher MCV (RBC) [Entitic vol] 98.0 fL Normal 81.0-99.0 [facility] Comment on above: Performed By: #### L IPA, CMP, CRP, NAT #### [facility] [address] [place] [address] Dr. Keturah Fisher MONO # 1.1 103/ul Critically high 0.3-0.8 [facility] Comment on above: Performed By: #### L IPA, CMP, CRP, NAT #### [facility] [address] [place] [address] Dr. Keturah Fisher Monocytes/100 WBC (Bld) 9.7 % Normal 1.7-12.0 [facility] Comment on above: Performed By: #### L IPA, CMP, CRP, NAT #### [facility] [address] [place] [address] Dr. Keturah Fisher NEUT # 6.1 103/ul Normal 1.4-6.5 [facility] Comment on above: Performed By: #### L IPA, CMP, CRP, NAT #### [facility] [address] [place] [address] Dr. Keturah Fisher Neutrophils/100 WBC (Bld) 55.5 % Normal 43.0-75.0 [facility] Comment on above: Performed By: #### L IPA, CMP, CRP, NAT #### [facility] [address] [place] [address] Dr. Keturah Fisher Platelet mean volume (Bld) [Entitic vol] 9.7 fL Normal 9.5-13.5 [facility] Comment on above: Performed By: #### L IPA, CMP, CRP, NAT #### [facility] [address] [address] [address] Keturah Fisher PLT 274 103/ul Normal 150-450 [facility] Comment on above: Performed By: #### L IPA, CMP, CRP, NAT #### [facility] [address] [place] [address] Dr. Keturah Fisher RBC 4.56 106/ul Normal 4.20-5.40 [facility] Comment on above: Performed By: #### L IPA, CMP, CRP, NAT #### [facility] [address] [place] [address] Dr. Keturah Fisher WBC 10.9 103/ul Normal 4.0-11.0 [facility] Comment on above: Performed By: #### L IPA, CMP, CRP, NAT #### [facility] [address] [place] [address] Dr. Keturah Fisher CRPon 12-13-2021 CRP [Mass/Vol] mg/L Normal <=1.0 [facility] Comment on above: Performed By: #### L IPA, CMP, CRP, NAT #### [facility] [address] [place] [address] ABD/PELV W CONon 12-14-[address] ABD/PELV W CON EXAMINATION: CT ABD/PELV [...] by: AGUSTIN HIGHTOWER Date: 2021-12-13 20:50 Normal [facility] LIPASEon 12-13-2021 Lipase [Catalytic activity/Vol] 1496.0 U/L Critically high 73.0-393.0 [facility] Comment on above: Performed By: #### L IPA, CMP, CRP, NAT #### [facility] [address] [place], [place] [address] Dr. Keturah Fisher PROF 14(COMP METB)on 022 Albumin [Mass/Vol] 4.0 g/dL Normal 3.4-5.0 [facility] Comment on above: Performed By: #### L IPA, CMP, CRP, NAT #### [facility] [address] [place], [place] [address] Dr. Keturah Fisher Albumin/Globulin [Mass ratio] 1.0 {ratio} Normal [facility] Comment on above: Performed By: #### L IPA, CMP, CRP, NAT #### [facility] [address] [place] [address] Dr. Keturah Fisher ALP [Catalytic activity/Vol] 166 U/L Critically high 46-116 [facility] Comment on above: Performed By: #### L IPA, CMP, CRP, NAT #### [facility] [address] [place] [address] Dr. Keturah Fisher ALT [Catalytic activity/Vol] 19 U/L Normal 14-59 [facility] Comment on above: Performed By: #### L IPA, CMP, CRP, NAT #### [facility] [address] [place] [address] Dr. Keturah Fisher Anion gap [Moles/Vol] 9.5 mmol/L Normal [facility] Comment on above: Performed By: #### L IPA, CMP, CRP, NAT #### [facility] [address] [place] [address] Dr. Keturah Fisher AST [Catalytic activity/Vol] 16 U/L Normal 15-37 [facility] Comment on above: Performed By: #### L IPA, CMP, CRP, NAT #### [facility] [address] [place] [address] Dr. Keturah Fisher Bilirubin [Mass/Vol] 0.1 mg/dL Critically low 0.2-1.0 [facility] Comment on above: Performed By: #### L IPA, CMP, CRP, NAT #### [facility] [address] [place] [address] Dr. Keturah Fisher Calcium [Mass/Vol] 9.6 mg/dL Normal 8.5-10.1 [facility] Comment on above: Performed By: #### L IPA, CMP, CRP, NAT #### [facility] [address] [place] [address] Dr. Keturah Fisher Chloride [Moles/Vol] 104 mmol/L Normal 98-107 [facility] Comment on above: Performed By: #### L IPA, CMP, CRP, NAT #### [facility] [address] [address] [address] Keturah Fisher CO2 [Moles/Vol] 29.7 mmol/L Normal 21.0-32.0 [facility] Comment on above: Performed By: #### L IPA, CMP, CRP, NAT #### [facility] [address] [address] [address] Keturah Fisher Creatinine [Mass/Vol] 0.85 mg/dL Normal 0.55-1.02 [facility] Comment on above: Performed By: #### L IPA, CMP, CRP, NAT #### [facility] [address] [address] [address] Keturah Fisher EGFR-AF NIGERIEN >60 Normal >=60 [facility] Comment on above: Performed By: #### L IPA, CMP, CRP, NAT #### [facility] [address] [place] [address] Dr. Keturah Fisher EGFR-NON AF NIGERIEN >60 Normal >=60 [facility] Comment on above: Performed By: #### L IPA, CMP, CRP, NAT #### [facility] [address] [address] [address] Keturah Fisher Globulin (S) [Mass/Vol] 3.9 g/dL Normal [facility] Comment on above: Performed By: #### L IPA, CMP, CRP, NAT #### [facility] [address] [address] [address] Keturah Fisher Glucose [Mass/Vol] 70 mg/dL Critically low 74-[address] [facility] Comment on above: Performed By: #### L IPA, CMP, CRP, NAT #### [facility] [address] [address] [address] Keturah Fisher Potassium [Moles/Vol] 3.2 mmol/L Critically low 3.5-5.1 [facility] Comment on above: Performed By: #### L IPA, CMP, CRP, NAT #### [facility] [address] [address] [address] Keturah Fisher Protein [Mass/Vol] 7.9 g/dL Normal 6.4-8.2 [facility] Comment on above: Performed By: #### L IPA, CMP, CRP, NAT #### [facility] [address] [place] [address] Dr. Keturah Fisher Sodium [Moles/Vol] 140 mmol/L Normal 136-145 [facility] Comment on above: Performed By: #### L IPA, CMP, CRP, NAT #### [facility] [address] [place] [address] Dr. Keturah Fisher Urea nitrogen [Mass/Vol] 8.0 mg/dL Normal 7.0-18.0 [facility] Comment on above: Performed By: #### L IPA, CMP, CRP, NAT #### [facility] [address] [place] [address] Dr. Keturah Fisher Urea nitrogen/Creatinine [Mass ratio] 9.4 mg/mg Normal [facility] Comment on above: Performed By: #### L IPA, CMP, CRP, NAT #### [facility] [address] [place] [address] Dr. Keturah Fisher AMYLASEon 12-05-2021 Amylase [Catalytic activity/Vol] 223 U/L Critically high 25-115 [facility] Comment on above: Performed By: #### L IPA, CMP, CRP, NAT #### [facility] [address] [place] [address] Dr. Keturah Fisher CBC AUTO DIFFon 12-05-2021 BASO # 0.1 103/ul Normal 0.0-0.1 [facility] Comment on above: Performed By: #### C BC #### [facility] [address] [place] [address] Dr. Keturah Fisher Basophils/100 WBC (Bld) 0.7 % Normal 0.2-2.0 [facility] Comment on above: Performed By: #### C BC #### [facility] [address] [place] [address] Dr. Keturah Fisher EO # 0.2 103/ul Normal 0.0-0.7 [facility] Comment on above: Performed By: #### C BC #### [facility] [address] [place] [address] Dr. Keturah Fisher Eosinophils/100 WBC (Bld) 1.7 % Normal 0.9-7.0 [facility] Comment on above: Performed By: #### C BC #### [facility] [address] [place] [address] Dr. Keturah Fisher Erythrocyte distribution width (RBC) [Ratio] 13.0 % Normal 11.0-15.0 [facility] Comment on above: Performed By: #### C BC #### [facility] [address] [place] [address] Dr. Keturah Fisher Hematocrit (Bld) [Volume fraction] 44.9 % Normal 36.0-48.0 [facility] Comment on above: Performed By: #### C BC #### [facility] [address] [place] [address] Dr. Keturah Fisher Hemoglobin (Bld) [Mass/Vol] 15.1 g/dL Normal 12.0-16.0 [facility] Comment on above: Performed By: #### C BC #### [facility] [address] [place] [address] Dr. Keturah Fisher IG # 0.02 10e3/ul Normal 0.00-0.03 [facility] Comment on above: Performed By: #### C BC #### [facility] [address] [place] [address] Dr. Keturah Fisher IG % 0.2 % Normal 0.0-0.5 [facility] Comment on above: Performed By: #### C BC #### [facility] [address] [place] [address] Dr. Keturah Fisher LYMPH # 2.8 103/ul Normal 1.2-3.8 [facility] Comment on above: Performed By: #### C BC #### [facility] [address] [place] [address] Dr. Keturah Fisher Lymphocytes/100 WBC (Bld) 29.8 % Normal 20.5-60.0 [facility] Comment on above: Performed By: #### C BC #### [facility] [address] [place] [address] Dr. Keturah Fisher MANUAL DIFF REQ NO Normal [facility] Comment on above: Performed By: #### C BC #### [facility] [address] [place] [address] Dr. Keturah Fisher MCH (RBC) [Entitic mass] 32.4 pg Normal 26.7-34.0 [facility] Comment on above: Performed By: #### C BC #### [facility] [address] [place] [address] Dr. Keturah Fisher MCHC (RBC) [Mass/Vol] 33.6 g/dL Normal 29.9-35.2 [facility] Comment on above: Performed By: #### C BC #### [facility] [address] [place] [address] Dr. Keturah Fisher MCV (RBC) [Entitic vol] 96.4 fL Normal 81.0-99.0 [facility] Comment on above: Performed By: #### C BC #### [facility] [address] [place] [address] Dr. Keturah Fisher MONO # 0.6 103/ul Normal 0.3-0.8 [facility] Comment on above: Performed By: #### C BC #### [facility] [address] [place] [address] Dr. Keturah Fisher Monocytes/100 WBC (Bld) 6.3 % Normal 1.7-12.0 [facility] Comment on above: Performed By: #### C BC #### [facility] [address] [place] [address] Dr. Keturah Fisher NEUT # 5.7 103/ul Normal 1.4-6.5 [facility] Comment on above: Performed By: #### C BC #### [facility] [address] [place] [address] Dr. Keturah Fisher Neutrophils/100 WBC (Bld) 61.3 % Normal 43.0-75.0 [facility] Comment on above: Performed By: #### C BC #### [facility] [address] [place] [address] Dr. Keturah Fisher Platelet mean volume (Bld) [Entitic vol] 10.7 fL Normal 9.5-13.5 [facility] Comment on above: Performed By: #### C BC #### [facility] [address] [place] [address] Dr. Keturah Fisher PLT 217 103/ul Normal 150-450 [facility] Comment on above: Performed By: #### C BC #### [facility] [address] [place] [address] Dr. Keturah Fisher RBC 4.66 106/ul Normal 4.20-5.40 [facility] Comment on above: Performed By: #### C BC #### [facility] [address] [place] [address] Dr. Keturah Fisher WBC 9.2 103/ul Normal 4.0-11.0 [facility] Comment on above: Performed By: #### C BC #### [facility] [address] [place] [address] Dr. Keturah Fisher LIPASEon 12-05-2021 Lipase [Catalytic activity/Vol] 725.0 U/L Critically high 73.0-393.0 [facility] Comment on above: Performed By: #### L IPA, CMP, CRP, NAT #### [facility] [address] [place] [address] Dr. Keturah Fisher PROF 14(COMP METB)on 022 Albumin [Mass/Vol] 4.2 g/dL Normal 3.4-5.0 [facility] Comment on above: Performed By: #### L IPA, CMP, CRP, NAT #### [facility] [address] [place] [address] Dr. Keturah Fisher Albumin/Globulin [Mass ratio] 1.2 {ratio} Normal [facility] Comment on above: Performed By: #### L IPA, CMP, CRP, NAT #### [facility] [address] [place] [address] Dr. Keturah Fisher ALP [Catalytic activity/Vol] 158 U/L Critically high 46-116 [facility] Comment on above: Performed By: #### L IPA, CMP, CRP, NAT #### [facility] [address] [address] [address] Keturah Fisher ALT [Catalytic activity/Vol] 20 U/L Normal 14-59 [facility] Comment on above: Performed By: #### L IPA, CMP, CRP, NAT #### [facility] [address] [address] [address] Keturah Fisher Anion gap [Moles/Vol] 14.0 mmol/L Normal [facility] Comment on above: Performed By: #### L IPA, CMP, CRP, NAT #### [facility] [address] [address] [address] Keturah Fisher AST [Catalytic activity/Vol] 27 U/L Normal 15-37 [facility] Comment on above: Performed By: #### L IPA, CMP, CRP, NAT #### [facility] [address] [place] [address] Dr. Keturah Fisher Bilirubin [Mass/Vol] 0.3 mg/dL Normal 0.2-1.0 [facility] Comment on above: Performed By: #### L IPA, CMP, CRP, NAT #### [facility] [address] [address] [address] Keturah Fisher Calcium [Mass/Vol] 10.1 mg/dL Normal 8.5-10.1 [facility] Comment on above: Performed By: #### L IPA, CMP, CRP, NAT #### [facility] [address] [address] [address] Keturah Fisher Chloride [Moles/Vol] 105 mmol/L Normal 98-107 [facility] Comment on above: Performed By: #### L IPA, CMP, CRP, NAT #### [facility] [address] [address] [address] Keturah Fisher CO2 [Moles/Vol] 24.9 mmol/L Normal 21.0-32.0 [facility] Comment on above: Performed By: #### L IPA, CMP, CRP, NAT #### [facility] [address] [address] [address] Keturah Fisher Creatinine [Mass/Vol] 0.77 mg/dL Normal 0.55-1.02 [facility] Comment on above: Performed By: #### L IPA, CMP, CRP, NAT #### [facility] [address] [place] [address] Dr. Keturah Fisher EGFR-AF NIGERIEN >60 Normal >=60 [facility] Comment on above: Performed By: #### L IPA, CMP, CRP, NAT #### [facility] [address] [address] [address] Keturah Fisher EGFR-NON AF NIGERIEN >60 Normal >=60 [facility] Comment on above: Performed By: #### L IPA, CMP, CRP, NAT #### [facility] [address] [place] [address] Dr. Keturah Fisher Globulin (S) [Mass/Vol] 3.5 g/dL Normal [facility] Comment on above: Performed By: #### L IPA, CMP, CRP, NAT #### [facility] [address] [place] [address] Dr. Keturah Fisher Glucose [Mass/Vol] 91 mg/dL Normal 74-106 [facility] Comment on above: Performed By: #### L IPA, CMP, CRP, NAT #### [facility] [address] [place] [address] Dr. Keturah Fisher Potassium [Moles/Vol] 3.9 mmol/L Normal 3.5-5.1 [facility] Comment on above: Performed By: #### L IPA, CMP, CRP, NAT #### [facility] [address] [place] [address] Dr. Keturah Fisher Protein [Mass/Vol] 7.7 g/dL Normal 6.4-8.2 [facility] Comment on above: Performed By: #### L IPA, CMP, CRP, NAT #### [facility] [address] [place] [address] Dr. Keturah Fisher Sodium [Moles/Vol] 140 mmol/L Normal 136-145 [facility] Comment on above: Performed By: #### L IPA, CMP, CRP, NAT #### [facility] [address] [place] [address] Dr. Keturah Fisher Urea nitrogen [Mass/Vol] 8.0 mg/dL Normal 7.0-18.0 [facility] Comment on above: Performed By: #### L IPA, CMP, CRP, NAT #### [facility] [address] [place] [address] Dr. Keturah Fisher Urea nitrogen/Creatinine [Mass ratio] 10.4 mg/mg Normal [facility] Comment on above: Performed By: #### L IPA, CMP, CRP, NAT #### [facility] [address] [place] [address] Dr. Keturah Fisher AMYLASEon 10-11-2021 Amylase [Catalytic activity/Vol] 134 U/L Critically high 25-115 [facility] Comment on above: Performed By: #### C BC #### [facility] [address] [place] [address] Dr. Keturah Fisher CBC AUTO DIFFon 10-11-2021 BASO # 0.1 103/ul Normal 0.0-0.1 [facility] Comment on above: Performed By: #### L IPA, CMP, CRP, NAT #### [facility] [address] [place] [address] Dr. Keturah Fisher Basophils/100 WBC (Bld) 1.0 % Normal 0.2-2.0 [facility] Comment on above: Performed By: #### L IPA, CMP, CRP, NAT #### [facility] [address] [place] [address] Dr. Keturah Fisher EO # 0.2 103/ul Normal 0.0-0.7 [facility] Comment on above: Performed By: #### L IPA, CMP, CRP, NAT #### [facility] [address] [place] [address] Dr. Keturah Fisher Eosinophils/100 WBC (Bld) 2.0 % Normal 0.9-7.0 [facility] Comment on above: Performed By: #### L IPA, CMP, CRP, NAT #### [facility] [address] [place] [address] Dr. Keturah Fisher Erythrocyte distribution width (RBC) [Ratio] 13.2 % Normal 11.0-15.0 [facility] Comment on above: Performed By: #### L IPA, CMP, CRP, NAT #### [facility] [address] [place] [id number] Dr. Keturah Fisher Hematocrit (Bld) [Volume fraction] 44.7 % Normal 36.0-48.0 [facility] Comment on above: Performed By: #### L IPA, CMP, CRP, NAT #### [facility] [address] [place] [address] Dr. Keturah Fisher Hemoglobin (Bld) [Mass/Vol] 15.0 g/dL Normal 12.0-16.0 [facility] Comment on above: Performed By: #### L IPA, CMP, CRP, NAT #### [facility] [address] [place] [address] Dr. Keturah Fisher IG # 0.02 10e3/ul Normal 0.00-0.03 [facility] Comment on above: Performed By: #### L IPA, CMP, CRP, NAT #### [facility] [address] [place] [address] Dr. Keturah Fisher IG % 0.2 % Normal 0.0-0.5 [facility] Comment on above: Performed By: #### L IPA, CMP, CRP, NAT #### [facility] [address] [place] [address] Dr. Keturah Fisher LYMPH # 4.1 103/ul Critically high 1.2-3.8 [facility] Comment on above: Performed By: #### L IPA, CMP, CRP, NAT #### [facility] [address] [place] [address] Dr. Keturah Fisher Lymphocytes/100 WBC (Bld) 38.9 % Normal 20.5-60.0 [facility] Comment on above: Performed By: #### L IPA, CMP, CRP, NAT #### [facility] [address] [place] [address] Dr. Keturah Fisher MANUAL DIFF REQ NO Normal [facility] Comment on above: Performed By: #### L IPA, CMP, CRP, NAT #### [facility] [address] [place] [address] Dr. Keturah Fisher MCH (RBC) [Entitic mass] 32.1 pg Normal 26.7-34.0 [facility] Comment on above: Performed By: #### L IPA, CMP, CRP, NAT #### [facility] [address] [place] [address] Dr. Keturah Fisher MCHC (RBC) [Mass/Vol] 33.6 g/dL Normal 29.9-35.2 [facility] Comment on above: Performed By: #### L IPA, CMP, CRP, NAT #### [facility] [address] [place] [address] Dr. Keturah Fisher MCV (RBC) [Entitic vol] 95.7 fL Normal 81.0-99.0 [facility] Comment on above: Performed By: #### L IPA, CMP, CRP, NAT #### [facility] [address] [place] [address] Dr. Keturah Fisher MONO # 0.9 103/ul Critically high 0.3-0.8 [facility] Comment on above: Performed By: #### L IPA, CMP, CRP, NAT #### [facility] [address] [place] [address] Dr. Keturah Fisher Monocytes/100 WBC (Bld) 8.8 % Normal 1.7-12.0 [facility] Comment on above: Performed By: #### L IPA, CMP, CRP, NAT #### [facility] [address] [place] [address] Dr. Keturah Fisher NEUT # 5.2 103/ul Normal 1.4-6.5 [facility] Comment on above: Performed By: #### L IPA, CMP, CRP, NAT #### [facility] [address] [place] [address] Dr. Keturah Fisher Neutrophils/100 WBC (Bld) 49.1 % Normal 43.0-75.0 [facility] Comment on above: Performed By: #### L IPA, CMP, CRP, NAT #### [facility] [address] [place] [address] Dr. Keturah Fisher Platelet mean volume (Bld) [Entitic vol] 9.8 fL Normal 9.5-13.5 [facility] Comment on above: Performed By: #### L IPA, CMP, CRP, NAT #### [facility] [address] [place] [address] Dr. Keturah Fisher PLT 299 103/ul Normal 150-450 [facility] Comment on above: Performed By: #### L IPA, CMP, CRP, NAT #### [facility] [address] [place] [address] Dr. Keturah Fisher RBC 4.67 106/ul Normal 4.20-5.40 [facility] Comment on above: Performed By: #### L IPA, CMP, CRP, NAT #### [facility] [address] [place] [address] Dr. Keturah Fisher WBC 10.5 103/ul Normal 4.0-11.0 [facility] Comment on above: Performed By: #### L IPA, CMP, CRP, NAT #### [facility] [address] [place] [address] Dr. Keturah Fisher LIPASEon 10-11-2021 Lipase [Catalytic activity/Vol] 240.0 U/L Normal 73.0-393.0 [facility] Comment on above: Performed By: #### C BC #### [facility] [address] [place] [address] Dr. Keturah Fisher PROF 14(COMP METB)on 022 Albumin [Mass/Vol] 4.3 g/dL Normal 3.4-5.0 [facility] Comment on above: Performed By: #### C BC #### [facility] [address] [place] [address] Dr. Keturah Fisher Albumin/Globulin [Mass ratio] 1.3 {ratio} Normal [facility] Comment on above: Performed By: #### C BC #### [facility] [address] [place] [address] Dr. Keturah Fisher ALP [Catalytic activity/Vol] 162 U/L Critically high 46-116 [facility] Comment on above: Performed By: #### C BC #### [facility] [address] [address] [address] Keturah Fisher ALT [Catalytic activity/Vol] 21 U/L Normal 14-59 [facility] Comment on above: Performed By: #### C BC #### [facility] [address] [address] [address] Keturah Fisher Anion gap [Moles/Vol] 15.1 mmol/L Normal [facility] Comment on above: Performed By: #### C BC #### [facility] [address] [address] [address] Keturah Fisher AST [Catalytic activity/Vol] 16 U/L Normal 15-37 [facility] Comment on above: Performed By: #### C BC #### [facility] [address] [place] [address] Dr. Keturah Fisher Bilirubin [Mass/Vol] 0.2 mg/dL Normal 0.2-1.0 [facility] Comment on above: Performed By: #### C BC #### [facility] [address] [place] [address] Dr. Keturah Fisher Calcium [Mass/Vol] 9.6 mg/dL Normal 8.5-10.1 [facility] Comment on above: Performed By: #### C BC #### [facility] [address] [place] [address] Dr. Keturah Fisher Chloride [Moles/Vol] 104 mmol/L Normal 98-107 [facility] Comment on above: Performed By: #### C BC #### [facility] [address] [place] [address] Dr. Keturah Fisher CO2 [Moles/Vol] 24.6 mmol/L Normal 21.0-32.0 [facility] Comment on above: Performed By: #### C BC #### [facility] [address] [place] [address] Dr. Keturah Fisher Creatinine [Mass/Vol] 0.88 mg/dL Normal 0.55-1.02 [facility] Comment on above: Performed By: #### C BC #### [facility] [address] [address] [address] Keturah Fisher EGFR-AF NIGERIEN >60 Normal >=60 [facility] Comment on above: Performed By: #### C BC #### [facility] [address] [address] [address] Keturah Fisher EGFR-NON AF NIGERIEN >60 Normal >=60 [facility] Comment on above: Performed By: #### C BC #### [facility] [address] [address] [address] Keturah Fisher Globulin (S) [Mass/Vol] 3.3 g/dL Normal [facility] Comment on above: Performed By: #### C BC #### [facility] [address] [address] [address] Keturah Fisher Glucose [Mass/Vol] 111 mg/dL Critically high 74-106 [facility] Comment on above: Performed By: #### C BC #### [facility] [address] [place] [address] Dr. Keturah Fisher Potassium [Moles/Vol] 3.7 mmol/L Normal 3.5-5.1 [facility] Comment on above: Performed By: #### C BC #### [facility] [address] [place] [address] Dr. Keturah Fisher Protein [Mass/Vol] 7.6 g/dL Normal 6.4-8.2 [facility] Comment on above: Performed By: #### C BC #### [facility] [address] [place] [address] Dr. Keturah Fisher Sodium [Moles/Vol] 140 mmol/L Normal 136-145 [facility] Comment on above: Performed By: #### C BC #### [facility] [address] [place] [address] Dr. Keturah Fisher Urea nitrogen [Mass/Vol] 11.0 mg/dL Normal 7.0-18.0 [facility] Comment on above: Performed By: #### C BC #### [facility] [address] [address] [address] Keturah Fisher Urea nitrogen/Creatinine [Mass ratio] 12.5 mg/mg Normal [facility] Comment on above: Performed By: #### C BC #### [facility] [address] [place], [place] [address] Dr. Keturah Fisher PROTIMEon 10-11-2021 INR Coag (PPP) [Relative time] 0.94 {INR} Normal [facility] Comment on above: Performed By: #### P T, PTT ####[facility] [address] [address]Dr. Keturah Fisher INR GUIDELINES SEE BELOW Normal [facility] Comment on above: Result Comment: KARLY RED INR: 2.0 - 3.0 CONDITIONS NOT LISTED BELOW 2.5 - 3.5 FOR PROSTHETIC HEART VALVE REPLACEMENT 2.5 - 3.5 RECURRENT THROMBOSIS Performed By: #### P T, PTT ####[facility] [id number] [id number][address] Keturah Fisher PT Coag (PPP) [Time] 10.2 s Normal 9.0-11.6 [facility] Comment on above: Performed By: #### P T, PTT ####[facility] [id number] [id number]. Keturah Fisher PTTon 10-11-2021 aPTT Coag (Bld) [Time] 28.0 s Normal 22.3-36.[address] [facility] Comment on above: Performed By: #### P T, PTT ####[facility] [id number] [address]DrGopal Fisher Amphetamine Screen Ql (U)Ord ered By: Christa Lopez on 10-09-2021 Amphetamines Ql (U) Negative Negative [facility] Barbiturates [Presence] in U rineOrdered By: Christa Lopez on 10-09-2021 Barbiturates Ql (U) Negative Negative [facility] Basophils Auto (Bld) [#/Vol] Ordered By: hCrista Lopez on 10-09-2021 Basophils (Bld) [#/Vol] 0.1 10*3/uL 0.0-0.2 [facility] Basophils/100 WBC Auto (Bld) Ordered By: Christa Lopez on 10-09-2021 Basophils/100 WBC (Bld) 0.9 % . [facility] Benzodiazepines [Presence] i n UrineOrdered By: Christa Lopez on 10-09-2021 Benzodiazepines Ql (U) Negative Negative Fi [facility] Bilirubin Auto test strip Ql (U)Ordered By: Christa Lopez on 10-09-2021 Bilirubin Ql (U) Negative Negative [facility] Blood hemoglobin measurement (mass/volume)Ordered By: Christa Lopez on 10-09-2021 Hemoglobin (Bld) [Mass/Vol] 15.7 g/dL 11.8-15.4 [facility] Blood leukocytes automated c ount (number/volume)Ordered By: Christa Lopez on 10-09-2021 WBC (Bld) [#/Vol] 10.1 10*3/uL 4.5-11.0 [facility] Body fluid albumin measureme nt (mass/volume)Ordered By: Christa Lopez on 10-09-2021 Albumin (Body fld) [Mass/Vol] 4.5 g/dL 3.2-5.5 [facility] Cannabinoids [Presence] in U rine by Screen methodOrdered By: Christa Lopez on 10-09-2021 Cannabinoids Screen Ql (U) Negative Negative [facility] Comment on above: These are unconfirme d results and should not be used for legal purposes. Drug Cut-Off Concentration: AMPH 1000 ng/mL BAILEY 200 ng/mL JAKE 200 ng/mL COCM 300 ng/mL OP 300 ng/mL PCP 25 ng/mL THC 20 ng/mL Creatinine and Glomerular fi ltration rate.predicted panel (S/P/Bld)Ordered By: Christa Lopez on 10-09-2021 Creatinine [Mass/Vol] 0.85 mg/dL 0.44-1.03 [facility] Eosinophils Auto (Bld) [#/Vo l]Ordered By: Christa Lopez on 10-09-2021 Eosinophils (Bld) [#/Vol] 0.1 10*3/uL 0.0-0.45 [facility] Eosinophils/100 WBC Auto (Bl d)Ordered By: Christa Lopez on 10-09-2021 Eosinophils/100 WBC (Bld) 1.2 % . [facility] Erythrocyte distribution wid th Auto (RBC) [Ratio]Ordered By: Christa Lopez on 10-09-2021 Erythrocyte distribution width (RBC) [Ratio] 13.5 % 11.9-15.3 [facility] Estimated glomerular filtrat ion rate (GFR) non- AmericanOrdered By: Christa Lopez on 10-09-2021 GFR/1.73 sq M.predicted among non-blacks MDRD (S/P/Bld) [Vol rate/Area] > 60 mL/Min [facility] Globulin Calc (S) [Mass/Vol] Ordered By: Christa Lopez on 10-09-2021 Globulin (S) [Mass/Vol] 2.9 g/dL [facility] Hematocrit Auto (Bld) [Volum e fraction]Ordered By: Christa Lopez on 10-09-2021 Hematocrit (Bld) [Volume fraction] 47.1 % 34.0-46.4 [facility] Ketones Auto test strip (U) [Mass/Vol]Ordered By: Christa Lopez on 10-09-2021 Ketones (U) [Mass/Vol] Negative Negative [facility] - Chemistry and C hemistry - challengeOrdered By: Christa Lopez on 10-09-2021 Lipase [Catalytic activity/Vol] 242.0 U/L 22-51 [facility] - Drug toxicology Ordered By: Christa Lopez on 10-09-2021 Opiates Ql (U) Negative Negative [facility] Laboratory - Hematology and Cell countsOrdered By: Chrisat Lopez on 10-09-2021 Nucleated RBC/100 WBC (Bld) [Ratio] 0.1 % 0-0.5 [facility] Lymphocytes Auto (Bld) [#/Vo l]Ordered By: Christa Lopez on 10-09-2021 Lymphocytes (Bld) [#/Vol] 2.6 10*3/uL 1.00-4.8 [facility] Lymphocytes/100 WBC Auto (Bl d)Ordered By: Christa Lopez on 10-09-2021 Lymphocytes/100 WBC (Bld) 26.0 % . [facility] MCH Auto (RBC) [Entitic mass ]Ordered By: Christa Lopez on 10-09-2021 MCH (RBC) [Entitic mass] 32.4 pg 24.7-34.3 [facility] MCHC Auto (RBC) [Mass/Vol]Or dered By: Christa Lopez on 10-09-2021 MCHC (RBC) [Mass/Vol] 33.3 g/dL 32.0-35.0 [facility] MCV Auto (RBC) [Entitic vol] Ordered By: Christa Lopez on 10-09-2021 MCV (RBC) [Entitic vol] 97.3 fL 80-100 [facility] Monocytes Auto (Bld) [#/Vol] Ordered By: Christa Lopez on 10-09-2021 Monocytes (Bld) [#/Vol] 0.8 10*3/uL 0.0-0.8 [facility] Monocytes/100 WBC Auto (Bld) Ordered By: Christa Lopez on 10-09-2021 Monocytes/100 WBC (Bld) 7.6 % . [facility] Neutrophils Auto (Bld) [#/Vo l]Ordered By: Christa Lopez on 10-09-2021 Neutrophils (Bld) [#/Vol] 6.5 10*3/uL 1.8-7.7 [facility] Neutrophils/100 WBC Auto (Bl d)Ordered By: Christa Lopez on 10-09-2021 Neutrophils/100 WBC (Bld) 64.3 % . [facility] No Panel InformationOrdered By: Christa Lopez on 10-09-2021 Estimated GFR () > 60 mL/Min [facility] Comment on above: GFR estimated refere nce range: According to KDOQI guidelines, <60 ml/min/1.73m2 is sufficient to diagnose a patient with chronic kidney disease. Pharmacy Creatinine Clearance (Chem 61.23 [facility] Phencyclidine Screen Ql (U)O rdered By: Christa Lopez on 10-09-2021 Phencyclidine Ql (U) Negative Negative [facility] Platelet mean volume Auto (B ld) [Entitic vol]Ordered By: Christa Lopez on 10-09-2021 Platelet mean volume (Bld) [Entitic vol] 8.5 fL 6.3-10.7 [facility] Platelets Auto (Bld) [#/Vol] Ordered By: Christa Lopez on 10-09-2021 Platelets (Bld) [#/Vol] 284 10*3/uL 150-450 [facility] Protein Auto test strip (U) [Mass/Vol]Ordered By: Christa Lopez on 10-09-2021 Protein (U) [Mass/Vol] Negative Negative Fi [facility] Protein [Mass/volume] in Ser um or PlasmaOrdered By: Christa Lopez on 10-09-2021 Protein [Mass/Vol] 7.4 g/dL 6.1-7.9 [facility] RBC Auto (Bld) [#/Vol]Ordere d By: Christa Lopez on 10-09-2021 RBC (Bld) [#/Vol] 4.84 10*6/uL 3.60-5.00 [facility] Serum or plasma alanine hughes otransferase measurement without P-5'-P (enzymatic activiOrdered By: Christa Lopez on 10-09-2021 ALT No additional P-5'-P [Catalytic activity/Vol] 19 U/L 10-60 [facility] Serum or plasma albumin/glob ulin mass ratioOrdered By: Christa Lopez on 10-09-2021 Albumin/Globulin [Mass ratio] 1.6 {ratio} [facility] Serum or plasma alkaline jaqueline sphatase measurement (enzymatic activity/volume)Ordered By: Christa Lopez on 10-09-2021 ALP [Catalytic activity/Vol] 138 U/L 32-92 [facility] Serum or plasma aspartate am inotransferase measurement (enzymatic activity/volume)Ordered By: Christa Lopez on 10-09-2021 AST [Catalytic activity/Vol] 31 U/L 10-42 [facility] Serum or plasma calcium priscilla urement (mass/volume)Ordered By: Christa Lopez on 10-09-2021 Calcium [Mass/Vol] 10.3 mg/dL 8.2-10.2 [facility] Serum or plasma chloride daron surement (moles/volume)Ordered By: Christa Lopez on 10-09-2021 Chloride [Moles/Vol] 100 mmol/L 95-114 [facility] Serum or plasma glucose priscilla urement (mass/volume)Ordered By: Christa Lopez on 10-09-2021 Glucose [Mass/Vol] 75 mg/dL 70-100 [facility] Comment on above: ADA recommended refe rence range Random Glucose Reference Range is dependent on time and content of last meal. Glucose of more than 200 mg/dL in a nonstressed, ambulatory subject supports the diagnosis of Diabetes Mellitus. Serum or plasma potassium me asurement (moles/volume)Ordered By: Christa Lopez on 10-09-2021 Potassium [Moles/Vol] 3.9 mmol/L 3.5-5.1 [facility] Serum or plasma sodium measu rement (moles/volume)Ordered By: Christa Lopez on 10-09-2021 Sodium [Moles/Vol] 136 mmol/L 136-146 [facility] Serum or plasma total biliru bin measurement (mass/volume)Ordered By: Christa Lopez on 10-09-2021 Bilirubin [Mass/Vol] 0.4 mg/dL 0.3-1.2 [facility] Serum or plasma total carbon dioxide measurement (moles/volume)Ordered By: Christa Lopez on 10-09-2021 CO2 [Moles/Vol] 24.1 mmol/L 22.0-30.0 [facility] Serum or plasma urea nitroge n measurement (mass/volume)Ordered By: Christa Lopez on 10-09-2021 Urea nitrogen [Mass/Vol] 12 mg/dL 9-23 [facility] Troponin I.cardiac [Mass/vol ume] in Serum or Plasma by High sensitivity methodOrdered By: Christa Lopez on 10-09-2021 Troponin I.cardiac High sensitivity method [Mass/Vol] 3 pg/mL 0-15 [facility] Urine appearanceOrdered By: Christa Lopez on 10-09-2021 Appearance (U) Clear Clear [facility] Urine cocaine detectionOrder ed By: Christa Lopez on 10-09-2021 Cocaine Ql (U) Negative Negative [facility] Urine colorOrdered By: Christa Lopez on 10-09-2021 Color (U) Yellow Yellow [facility] Urine glucose measurement by automated test strip (mass/volume)Ordered By: Christa Lopez on 10-09-2021 Glucose Auto test strip (U) [Mass/Vol] Normal mg/dL Normal [facility] Urine hemoglobin detection b y automated test stripOrdered By: Christa Lopez on 10-09-2021 Hemoglobin Auto test strip Ql (U) Negative Negative [facility] Urine leukocyte esterase det ection by automated test stripOrdered By: Christa Lopez on 10-09-2021 Leukocyte esterase Auto test strip Ql (U) Negative Negative [facility] Urine nitrite detection by a utomated test stripOrdered By: Christa Lopez on 10-09-2021 Nitrite Auto test strip Ql (U) Negative Negative [facility] Urobilinogen Auto test strip (U) [Mass/Vol]Ordered By: Christa Lopez on 10-09-2021 Urobilinogen (U) [Mass/Vol] Normal mg/dL Normal [facility] pH Auto test strip (U)Ordere d By: Christa Lopez on 10-09-2021 pH (U) 1.025 [pH] 1.001-1.030 [facility] pH (U) 5.5 [pH] 5.0-9.0 [facility] Albumin [Mass/volume] in Ser um or PlasmaOrdered By: Reinaldo Amor on 10-04-2021 Albumin [Mass/Vol] 3.6 g/dL 3.2-5.5 [facility] Basophils Auto (Bld) [#/Vol] Ordered By: Reinaldo Amor on 10-04-2021 Basophils (Bld) [#/Vol] 0.1 10*3/uL 0.0-0.2 [facility] Basophils/100 WBC Auto (Bld) Ordered By: Reinaldo Amor on 10-04-2021 Basophils/100 WBC (Bld) 0.8 % . [facility] Bilirubin Auto test strip Ql (U)Ordered By: Reinaldo Amor on 10-04-2021 Bilirubin Ql (U) Negative Negative [facility] Blood hemoglobin measurement (mass/volume)Ordered By: Reinaldo Amor on 10-04-2021 Hemoglobin (Bld) [Mass/Vol] 13.9 g/dL 11.8-15.4 [facility] Blood leukocytes automated c ount (number/volume)Ordered By: Reinaldo Amor on 10-04-2021 WBC (Bld) [#/Vol] 10.4 10*3/uL 4.5-11.0 [facility] Creatinine and Glomerular fi ltration rate.predicted panel (S/P/Bld)Ordered By: Reinaldo Aomr on 10-04-2021 Creatinine [Mass/Vol] 0.73 mg/dL 0.44-1.03 [facility] Direct bilirubin measurement Ordered By: Reinaldo Amor on 10-04-2021 Bilirubin.direct [Mass/Vol] mg/dL 0.0-0.4 [facility] Eosinophils Auto (Bld) [#/Vo l]Ordered By: Reinaldo Amor on 10-04-2021 Eosinophils (Bld) [#/Vol] 0.1 10*3/uL 0.0-0.45 [facility] Eosinophils/100 WBC Auto (Bl d)Ordered By: Reinaldo Amor on 10-04-2021 Eosinophils/100 WBC (Bld) 0.5 % . [facility] Erythrocyte distribution wid th Auto (RBC) [Ratio]Ordered By: Reinaldo Amor on 10-04-2021 Erythrocyte distribution width (RBC) [Ratio] 13.7 % 11.9-15.3 [facility] Estimated glomerular filtrat ion rate (GFR) non- AmericanOrdered By: Reinaldo Amor on 10-04-2021 GFR/1.73 sq M.predicted among non-blacks MDRD (S/P/Bld) [Vol rate/Area] > 60 mL/Min [facility] Globulin Calc (S) [Mass/Vol] Ordered By: Reinaldo Amor on 10-04-2021 Globulin (S) [Mass/Vol] 2.6 g/dL [facility] Hematocrit Auto (Bld) [Volum e fraction]Ordered By: Reinaldo Amor on 10-04-2021 Hematocrit (Bld) [Volume fraction] 41.1 % 34.0-46.4 [facility] Ketones Auto test strip (U) [Mass/Vol]Ordered By: Reinaldo Amor on 10-04-2021 Ketones (U) [Mass/Vol] Negative Negative Fi [facility] Laboratory - Chemistry and C hemistry - challengeOrdered By: Reinaldo Amor on 10-04-2021 Lipase [Catalytic activity/Vol] 107.0 U/L 22-51 [facility] - Hematology and Cell countsOrdered By: Reinaldo Amor on 10-04-2021 Nucleated RBC/100 WBC (Bld) [Ratio] 0.1 % 0-0.5 [facility] Lymphocytes Auto (Bld) [#/Vo l]Ordered By: Reinaldo Amor on 10-04-2021 Lymphocytes (Bld) [#/Vol] 2.5 10*3/uL 1.00-4.8 [facility] Lymphocytes/100 WBC Auto (Bl d)Ordered By: Reinaldo Amor on 10-04-2021 Lymphocytes/100 WBC (Bld) 24.1 % . [facility] MCH Auto (RBC) [Entitic mass ]Ordered By: Reinaldo Amor on 10-04-2021 MCH (RBC) [Entitic mass] 32.6 pg 24.7-34.3 [facility] MCHC Auto (RBC) [Mass/Vol]Or dered By: Reinaldo Amor on 10-04-2021 MCHC (RBC) [Mass/Vol] 33.8 g/dL 32.0-35.0 [facility] MCV Auto (RBC) [Entitic vol] Ordered By: Reinaldo Amor on 10-04-2021 MCV (RBC) [Entitic vol] 96.5 fL 80-100 [facility] Monocytes Auto (Bld) [#/Vol] Ordered By: Reinaldo Amor on 10-04-2021 Monocytes (Bld) [#/Vol] 0.9 10*3/uL 0.0-0.8 [facility] Monocytes/100 WBC Auto (Bld) Ordered By: Reinaldo Amor on 10-04-2021 Monocytes/100 WBC (Bld) 8.4 % . [facility] Neutrophils Auto (Bld) [#/Vo l]Ordered By: Reinaldo Amor on 10-04-2021 Neutrophils (Bld) [#/Vol] 6.9 10*3/uL 1.8-7.7 [facility] [facility] Neutrophils/100 WBC Auto (Bl d)Ordered By: Reinaldo Amor on 10-04-2021 Neutrophils/100 WBC (Bld) 66.2 % . [facility] No Panel InformationOrdered By: Reinaldo Amor on 10-04-2021 Estimated GFR () > 60 mL/Min [facility] Comment on above: GFR estimated refere nce range: According to KDOQI guidelines, <60 ml/min/1.73m2 is sufficient to diagnose a patient with chronic kidney disease. Pharmacy Creatinine Clearance (Chem 71.30 [facility] Platelet mean volume Auto (B ld) [Entitic vol]Ordered By: Reinaldo Amor on 10-04-2021 Platelet mean volume (Bld) [Entitic vol] 8.0 fL 6.3-10.7 [facility] Platelets Auto (Bld) [#/Vol] Ordered By: Reinaldo Amor on 10-04-2021 Platelets (Bld) [#/Vol] 268 10*3/uL 150-450 [facility] Protein Auto test strip (U) [Mass/Vol]Ordered By: Reinaldo Amor on 10-04-2021 Protein (U) [Mass/Vol] Negative Negative [facility] Protein [Mass/volume] in Ser um or PlasmaOrdered By: Reinaldo Amor on 10-04-2021 Protein [Mass/Vol] 6.2 g/dL 6.1-7.9 [facility] RBC Auto (Bld) [#/Vol]Ordere d By: Reinaldo Amor on 10-04-2021 RBC (Bld) [#/Vol] 4.26 10*6/uL 3.60-5.00 [facility] Serum or plasma alanine hughes otransferase measurement without P-5'-P (enzymatic activiOrdered By: Reinaldo Amor on 10-04-2021 ALT No additional P-5'-P [Catalytic activity/Vol] 15 U/L 10-60 [facility] Serum or plasma albumin/glob ulin mass ratioOrdered By: Reinaldo Amor on 10-04-2021 Albumin/Globulin [Mass ratio] 1.4 {ratio} [facility] Serum or plasma alkaline jaqueline sphatase measurement (enzymatic activity/volume)Ordered By: Reinaldo Amor on 10-04-2021 ALP [Catalytic activity/Vol] 103 U/L 32-92 [facility] Serum or plasma amylase priscilla urement (enzymatic activity/volume)Ordered By: Reinaldo Amor on 10-04-2021 Amylase [Catalytic activity/Vol] 134 U/L 28-100 [facility] Serum or plasma aspartate am inotransferase measurement (enzymatic activity/volume)Ordered By: Reinaldo Amor on 10-04-2021 AST [Catalytic activity/Vol] 20 U/L 10-42 [facility] Serum or plasma calcium priscilla urement (mass/volume)Ordered By: Reinaldo Amor on 10-04-2021 Calcium [Mass/Vol] 9.6 mg/dL 8.2-10.2 [facility] Serum or plasma chloride daron surement (moles/volume)Ordered By: Reinaldo Amor on 10-04-2021 Chloride [Moles/Vol] 103 mmol/L 95-114 [facility] Serum or plasma ethanol priscilla urement (mass/volume)Ordered By: Reinaldo Amor on 10-04-2021 Ethanol [Mass/Vol] mg/dL [facility] Ethanol [Mass/Vol] TNP [facility] Comment on above: Test not performed Serum or plasma glucose priscilla urement (mass/volume)Ordered By: Reinaldo Amor on 10-04-2021 Glucose [Mass/Vol] 120 mg/dL 70-100 [facility] Comment on above: ADA recommended refe rence range Random Glucose Reference Range is dependent on time and content of last meal. Glucose of more than 200 mg/dL in a nonstressed, ambulatory subject supports the diagnosis of Diabetes Mellitus. Serum or plasma non-glucuron idated bilirubin measurement (mass/volume)Ordered By: Reinaldo Amor on 10-04-2021 Bilirubin.indirect [Mass/Vol] [facility] Comment on above: Test not performed Serum or plasma potassium me asurement (moles/volume)Ordered By: Reinaldo Amor on 10-04-2021 Potassium [Moles/Vol] 3.7 mmol/L 3.5-5.1 [facility] Serum or plasma sodium measu rement (moles/volume)Ordered By: Reinaldo Amor on 10-04-2021 Sodium [Moles/Vol] 137 mmol/L 136-146 [facility] Serum or plasma total biliru bin measurement (mass/volume)Ordered By: Reinaldo Amor on 10-04-2021 Bilirubin [Mass/Vol] 0.5 mg/dL 0.3-1.2 [facility] Serum or plasma total carbon dioxide measurement (moles/volume)Ordered By: Reinaldo Amor on 10-04-2021 CO2 [Moles/Vol] 24.9 mmol/L 22.0-30.0 [facility] Serum or plasma urea nitroge n measurement (mass/volume)Ordered By: Reinaldo Amor on 10-04-2021 Urea nitrogen [Mass/Vol] 7 mg/dL 11-29 [facility] Urine appearanceOrdered By: Reinaldo mAor on 10-04-2021 Appearance (U) Clear Clear [facility] Urine colorOrdered By: Ml Amor on 10-04-2021 Color (U) Yellow Yellow [facility] Urine glucose measurement by automated test strip (mass/volume)Ordered By: Reinaldo Amor on 10-04-2021 Glucose Auto test strip (U) [Mass/Vol] Normal mg/dL Normal [facility] Urine hemoglobin detection b y automated test stripOrdered By: Reinaldo Amor on 10-04-2021 Hemoglobin Auto test strip Ql (U) Negative Negative [facility] Urine leukocyte esterase det ection by automated test stripOrdered By: Reinaldo Amor on 10-04-2021 Leukocyte esterase Auto test strip Ql (U) Negative Negative [facility] Urine nitrite detection by a utomated test stripOrdered By: Reinaldo Amor on 10-04-2021 Nitrite Auto test strip Ql (U) Negative Negative [facility] Urobilinogen Auto test strip (U) [Mass/Vol]Ordered By: Reinaldo Amor on 10-04-2021 Urobilinogen (U) [Mass/Vol] Normal mg/dL Normal [facility] pH Auto test strip (U)Ordere d By: Reinaldo Amor on 10-04-2021 pH (U) 1.030 [pH] 1.001-1.030 [facility] pH (U) 5.5 [pH] 5.0-9.0 [facility] Basophils Auto (Bld) [#/Vol] Ordered By: Reinaldo Amor on 09-25-2021 Basophils (Bld) [#/Vol] 0.1 10*3/uL 0.0-0.2 [facility] Basophils/100 WBC Auto (Bld) Ordered By: Reinaldo Amor on 09-25-2021 Basophils/100 WBC (Bld) 1.2 % . [facility] Blood hemoglobin measurement (mass/volume)Ordered By: Reinaldo Amor on 09-25-2021 Hemoglobin (Bld) [Mass/Vol] 14.2 g/dL 11.8-15.4 [facility] Blood leukocytes automated c ount (number/volume)Ordered By: Reinaldo Amor on 09-25-2021 WBC (Bld) [#/Vol] 9.3 10*3/uL 4.5-11.0 [facility] Body fluid albumin measureme nt (mass/volume)Ordered By: PROVIDER JONATHAN on 09-25-2021 Albumin (Body fld) [Mass/Vol] 4.3 g/dL 3.2-5.5 [facility] Creatinine and Glomerular fi ltration rate.predicted panel (S/P/Bld)Ordered By: PROVIDER JONATHAN on 09-25-2021 Creatinine [Mass/Vol] 0.82 mg/dL 0.44-1.03 [facility] Eosinophils Auto (Bld) [#/Vo l]Ordered By: Reinaldo Amor on 09-25-2021 Eosinophils (Bld) [#/Vol] 0.2 10*3/uL 0.0-0.45 [facility] Eosinophils/100 WBC Auto (Bl d)Ordered By: Reinaldo Amor on 09-25-2021 Eosinophils/100 WBC (Bld) 1.9 % . [facility] Erythrocyte distribution wid th Auto (RBC) [Ratio]Ordered By: Reinaldo Amor on 09-25-2021 Erythrocyte distribution width (RBC) [Ratio] 13.7 % 11.9-15.3 [facility] Estimated glomerular filtrat ion rate (GFR) non- AmericanOrdered By: PROVIDER TEMP on 09-25-2021 GFR/1.73 sq M.predicted among non-blacks MDRD (S/P/Bld) [Vol rate/Area] > 60 mL/Min [facility] Globulin Calc (S) [Mass/Vol] Ordered By: JOSE CASTILLO on 09-25-2021 Globulin (S) [Mass/Vol] 3.3 g/dL [facility] Hematocrit Auto (Bld) [Volum e fraction]Ordered By: Reinaldo Amor on 09-25-2021 Hematocrit (Bld) [Volume fraction] 42.1 % 34.0-46.4 [facility] Laboratory - Chemistry and C hemistry - challengeOrdered By: Reinaldo Amor on 09-25-2021 Lipase [Catalytic activity/Vol] 64.0 U/L 22-51 [facility] - Hematology and Cell countsOrdered By: Reinaldo Amor on 09-25-2021 Nucleated RBC/100 WBC (Bld) [Ratio] 0.1 % 0-0.5 [facility] Lymphocytes Auto (Bld) [#/Vo l]Ordered By: Reinaldo Amor on 09-25-2021 Lymphocytes (Bld) [#/Vol] 2.6 10*3/uL 1.00-4.8 [facility] Lymphocytes/100 WBC Auto (Bl d)Ordered By: Reinaldo Amor on 09-25-2021 Lymphocytes/100 WBC (Bld) 28.1 % . [facility] MCH Auto (RBC) [Entitic mass ]Ordered By: Reinaldo Amor on 09-25-2021 MCH (RBC) [Entitic mass] 32.5 pg 24.7-34.3 [facility] MCHC Auto (RBC) [Mass/Vol]Or dered By: Reinaldo Amor on 09-25-2021 MCHC (RBC) [Mass/Vol] 33.7 g/dL 32.0-35.0 [facility] MCV Auto (RBC) [Entitic vol] Ordered By: Reinaldo Amor on 09-25-2021 MCV (RBC) [Entitic vol] 96.7 fL 80-100 [facility] Monocytes Auto (Bld) [#/Vol] Ordered By: Reinaldo Amor on 09-25-2021 Monocytes (Bld) [#/Vol] 0.8 10*3/uL 0.0-0.8 [facility] Monocytes/100 WBC Auto (Bld) Ordered By: Reinaldo Amor on 09-25-2021 Monocytes/100 WBC (Bld) 8.2 % . [facility] Neutrophils Auto (Bld) [#/Vo l]Ordered By: Reinaldo Amor on 09-25-2021 Neutrophils (Bld) [#/Vol] 5.6 10*3/uL 1.8-7.7 [facility] Neutrophils/100 WBC Auto (Bl d)Ordered By: Reinaldo Amor on 09-25-2021 Neutrophils/100 WBC (Bld) 60.6 % . [facility] No Panel InformationOrdered By: JOSE CASTILLO on 09-25-2021 Estimated GFR () > 60 mL/Min [facility] Comment on above: GFR estimated refere nce range: According to KDOQI guidelines, <60 ml/min/1.73m2 is sufficient to diagnose a patient with chronic kidney disease. Pharmacy Creatinine Clearance (Chem 63.47 [facility] Platelet mean volume Auto (B ld) [Entitic vol]Ordered By: Reinaldo Amor on 09-25-2021 Platelet mean volume (Bld) [Entitic vol] 8.6 fL 6.3-10.7 [facility] Platelets Auto (Bld) [#/Vol] Ordered By: Reinaldo Amor on 09-25-2021 Platelets (Bld) [#/Vol] 221 10*3/uL 150-450 [facility] Protein [Mass/volume] in Ser um or PlasmaOrdered By: PROVIDER JONATHAN on 09-25-2021 Protein [Mass/Vol] 7.6 g/dL 6.1-7.9 [facility] RBC Auto (Bld) [#/Vol]Ordere d By: Reinaldo Amor on 09-25-2021 RBC (Bld) [#/Vol] 4.35 10*6/uL 3.60-5.00 [facility] Serum or plasma alanine hughes otransferase measurement without P-5'-P (enzymatic activiOrdered By: PROVIDER JONATHAN on 09-25-2021 ALT No additional P-5'-P [Catalytic activity/Vol] 14 U/L 10-60 [facility] Serum or plasma albumin/glob ulin mass ratioOrdered By: PROVIDER TEMP on 09-25-2021 Albumin/Globulin [Mass ratio] 1.3 {ratio} [facility] Serum or plasma alkaline jaqueline sphatase measurement (enzymatic activity/volume)Ordered By: PROVIDER TEMP on 09-25-2021 ALP [Catalytic activity/Vol] 127 U/L 32-92 [facility] Serum or plasma amylase priscilla urement (enzymatic activity/volume)Ordered By: Reinaldo Amor on 09-25-2021 Amylase [Catalytic activity/Vol] 171 U/L 28-100 [facility] Serum or plasma aspartate am inotransferase measurement (enzymatic activity/volume)Ordered By: PROVIDER TEMP on 09-25-2021 AST [Catalytic activity/Vol] 21 U/L 10-42 [facility] Serum or plasma calcium priscilla urement (mass/volume)Ordered By: PROVIDER TEMP on 09-25-2021 Calcium [Mass/Vol] 10.1 mg/dL 8.2-10.2 [facility] Serum or plasma chloride daron surement (moles/volume)Ordered By: PROVIDER TEMP on 09-25-2021 Chloride [Moles/Vol] 103 mmol/L 95-114 [facility] Serum or plasma glucose priscilla urement (mass/volume)Ordered By: PROVIDER TEMP on 09-25-2021 Glucose [Mass/Vol] 93 mg/dL 70-100 [facility] Comment on above: ADA recommended refe rence range Random Glucose Reference Range is dependent on time and content of last meal. Glucose of more than 200 mg/dL in a nonstressed, ambulatory subject supports the diagnosis of Diabetes Mellitus. Serum or plasma potassium me asurement (moles/volume)Ordered By: PROVIDER TEMP on 09-25-2021 Potassium [Moles/Vol] 3.9 mmol/L 3.5-5.1 [facility] Serum or plasma sodium measu rement (moles/volume)Ordered By: PROVIDER TEMP on 09-25-2021 Sodium [Moles/Vol] 137 mmol/L 136-146 [facility] Serum or plasma total biliru bin measurement (mass/volume)Ordered By: PROVIDER TEMP on 09-25-2021 Bilirubin [Mass/Vol] 0.3 mg/dL 0.3-1.2 [facility] Serum or plasma total carbon dioxide measurement (moles/volume)Ordered By: PROVIDER TEMP on 09-25-2021 CO2 [Moles/Vol] 26.3 mmol/L 22.0-30.0 [facility] Serum or plasma urea nitroge n measurement (mass/volume)Ordered By: PROVIDER TEMP on 09-25-2021 Urea nitrogen [Mass/Vol] 8 mg/dL 9- [facility] AMYLASEon 09-17-2021 Amylase [Catalytic activity/Vol] 142 U/L Critically high 25-115 [facility] Comment on above: Performed By: #### A MY, CMP, LIPA ####[facility] [address] [place] [address]Dr. Keturah Fisher CBC AUTO DIFFon 09-17-2021 BASO # 0.1 103/ul Normal 0.0-0.1 [facility] Comment on above: Performed By: #### C BC ####[facility] [address] [place], [place] [address]Dr. Keturah Fisher Basophils/100 WBC (Bld) 0.7 % Normal 0.2-2.0 [facility] Comment on above: Performed By: #### C BC ####[facility] [address] [place], [place] [address]Dr. Keturah Fisher EO # 0.1 103/ul Normal 0.0-0.7 [facility] Comment on above: Performed By: #### C BC ####[facility] [address] [place], [place] [address]Dr. Ketuarh Fisher Eosinophils/100 WBC (Bld) 1.3 % Normal 0.9-7.0 [facility] Comment on above: Performed By: #### C BC ####[facility] [address] [place], [place] [address]Dr. Keturah Fisher Erythrocyte distribution width (RBC) [Ratio] 13.2 % Normal 11.0-15.0 [facility] Comment on above: Performed By: #### C BC ####[facility] [address] [place] [address]Dr. Keturah Fisher Hematocrit (Bld) [Volume fraction] 43.7 % Normal 36.0-48.0 [facility] Comment on above: Performed By: #### C BC ####[facility] [address] [place] [address]Dr. Keturah Fisher Hemoglobin (Bld) [Mass/Vol] 14.7 g/dL Normal 12.0-16.0 [facility] Comment on above: Performed By: #### C BC ####[facility] [address] [place], [place] [address]Dr. Keturah Fisher IG # 0.01 10e3/ul Normal 0.00-0.03 [facility] Comment on above: Performed By: #### C BC ####[facility] [address] [place], [place] [address]Dr. Keturah Fisher IG % 0.1 % Normal 0.0-0.5 [facility] Comment on above: Performed By: #### C BC ####[facility] [address] [place], [place] [address]Dr. Keturah Fisher LYMPH # 2.7 103/ul Normal 1.2-3.8 [facility] Comment on above: Performed By: #### C BC ####[facility] [address] [place], [place] [address]Dr. Keturah Fisher Lymphocytes/100 WBC (Bld) 30.1 % Normal 20.5-60.0 [facility] Comment on above: Performed By: #### C BC ####[facility] [address] [place], [place] [address]Dr. Keturah Fisher MANUAL DIFF REQ NO Normal [facility] Comment on above: Performed By: #### C BC ####[facility] [address] [place], [place] [address]Dr. Keturah Fisher MCH (RBC) [Entitic mass] 32.4 pg Normal 26.7-34.0 [facility] Comment on above: Performed By: #### C BC ####[facility] [address] [place] [id number]. Keturah Fisher MCHC (RBC) [Mass/Vol] 33.6 g/dL Normal 29.9-35.2 [facility] Comment on above: Performed By: #### C BC ####[facility] [address] [place] [id number]. Keturah Fisher MCV (RBC) [Entitic vol] 96.3 fL Normal 81.0-99.0 [facility] Comment on above: Performed By: #### C BC ####[facility] [address] [place] [id number]. Keturah Phillip MONO # 0.8 103/ul Normal 0.3-0.8 [facility] Comment on above: Performed By: #### C BC ####[facility] [address] [place] [id number]. Keturah Fisher Monocytes/100 WBC (Bld) 8.7 % Normal 1.7-12.0 [facility] Comment on above: Performed By: #### C BC ####[facility] [address] [place] [id number]. Keturah Fisher NEUT # 5.4 103/ul Normal 1.4-6.5 [facility] Comment on above: Performed By: #### C BC ####[facility] [address] [place] [id number]. Elisaeli Fisher Neutrophils/100 WBC (Bld) 59.1 % Normal 43.0-75.0 [facility] Comment on above: Performed By: #### C BC ####[facility] [address] [place] [id number]. Keturah Fisher Platelet mean volume (Bld) [Entitic vol] 9.6 fL Normal 9.5-13.5 [facility] Comment on above: Performed By: #### C BC ####[facility] [address] [place] [id number]. Keturah Phillip PLT 272 103/ul Normal 150-450 [facility] Comment on above: Performed By: #### C BC ####[facility] [address] [place], [place] [address]DmGopal Fisher RBC 4.54 106/ul Normal 4.20-5.40 [facility] Comment on above: Performed By: #### C BC ####[facility] [address] [place], [place] [address]FrGopal Fisher WBC 9.1 103/ul Normal 4.0-11.0 [facility] Comment on above: Performed By: #### C BC ####[facility] [address] [place] [id number]. Keturah Fisher ETHANOL (BLD ALC)on 09-18-19 22 ALC NOTE NOTE: 80 mg/dl is th e legal limit for a blood alcohol level Normal [facility] Comment on above: Performed By: #### L IPA, CMP, CRP, NAT #### [facility] [address] [place] [address] Dr. Keturah Fisher Ethanol [Mass/Vol] mg/dL Normal [facility] Comment on above: Performed By: #### L IPA, CMP, CRP, NAT #### [facility] [address] [place] [address] Dr. Keturah Fisher LIPASEon 09-17-2021 Lipase [Catalytic activity/Vol] 524.0 U/L Critically high 73.0-393.0 [facility] Comment on above: Performed By: #### C BC #### [facility] [address] [address] [address] Keturah Fisher PROF 14(COMP METB)on 022 Albumin [Mass/Vol] 3.9 g/dL Normal 3.4-5.0 [facility] Comment on above: Performed By: #### C BC #### [facility] [address] [place] [address] Dr. Keturah Fisher Albumin/Globulin [Mass ratio] 1.1 {ratio} Normal [facility] Comment on above: Performed By: #### C BC #### [facility] [address] [address] [address] Keturah Fisher ALP [Catalytic activity/Vol] 136 U/L Critically high 46-116 [facility] Comment on above: Performed By: #### C BC #### [facility] [address] [address] [address] Keturah Fisher ALT [Catalytic activity/Vol] 21 U/L Normal 14-59 [facility] Comment on above: Performed By: #### C BC #### [facility] [address] [address] [address] Keturah Fisher Anion gap [Moles/Vol] 12.7 mmol/L Normal [facility] Comment on above: Performed By: #### C BC #### [facility] [address] [place] [address] [address] Keturah Fisher AST [Catalytic activity/Vol] 16 U/L Normal 15-37 [facility] Comment on above: Performed By: #### C BC #### [facility] [address] [address] [address] Keturah Fisher Bilirubin [Mass/Vol] 0.2 mg/dL Normal 0.2-1.0 [facility] Comment on above: Performed By: #### C BC #### [facility] [address] [address] [address] Keturah Fisher Calcium [Mass/Vol] 9.9 mg/dL Normal 8.5-10.1 [facility] Comment on above: Performed By: #### C BC #### [facility] [address] [address] [address] Keturah Fisher Chloride [Moles/Vol] 106 mmol/L Normal 98-107 [facility] Comment on above: Performed By: #### C BC #### [facility] [address] [address] [address] Keturah Fisher CO2 [Moles/Vol] 25.9 mmol/L Normal 21.0-32.0 [facility] Comment on above: Performed By: #### C BC #### [facility] [address] [address] [address] Keturah Fisher Creatinine [Mass/Vol] 0.96 mg/dL Normal 0.55-1.02 [facility] Comment on above: Performed By: #### C BC #### [facility] [address] [address] [address] Keturah Fisher EGFR-AF NIGERIEN >60 Normal >=60 [facility] Comment on above: Performed By: #### C BC #### [facility] [address] [address] [address] Keturah Fisher EGFR-NON AF NIGERIEN >60 Normal >=60 [facility] Comment on above: Performed By: #### C BC #### [facility] [address] [address] [address] Keturah Fisher Globulin (S) [Mass/Vol] 3.5 g/dL Normal [facility] Comment on above: Performed By: #### C BC #### [facility] [address] [address] [address] Keturah Fisher Glucose [Mass/Vol] 113 mg/dL Critically high 74-106 [facility] Comment on above: Performed By: #### C BC #### [facility] [address] [address] [address] Keturah Fisher Potassium [Moles/Vol] 3.6 mmol/L Normal 3.5-5.1 [facility] Comment on above: Performed By: #### C BC #### [facility] [address] [place] [address] Dr. Keturah Fisher Protein [Mass/Vol] 7.4 g/dL Normal 6.4-8.2 [facility] Comment on above: Performed By: #### C BC #### [facility] [address] [address] [address] Keturah Fisher Sodium [Moles/Vol] 141 mmol/L Normal 136-145 [facility] Comment on above: Performed By: #### C BC #### [facility] [address] [address] [address] Keturah Fisher Urea nitrogen [Mass/Vol] 8.0 mg/dL Normal 7.0-18.0 [facility] Comment on above: Performed By: #### C BC #### [facility] [address] [address] [address] Keturah Fisher Urea nitrogen/Creatinine [Mass ratio] 8.3 mg/mg Normal [facility] Comment on above: Performed By: #### C BC #### [facility] [address] [address] [address] Keturah Fisher AMYLASEon 08-26-2021 Amylase [Catalytic activity/Vol] 94 U/L Normal 25-115 [facility] Comment on above: Performed By: #### A MY, CMP, LIPA ####[facility] [address] [place] [address]Dr. Keturah Fisher CBC AUTO DIFFon 08-26-2021 BASO # 0.1 103/ul Normal 0.0-0.1 [facility] Comment on above: Performed By: #### L IPA, CMP, CRP, NAT #### [facility] [address] [address] [address] Keturah Fisher Basophils/100 WBC (Bld) 0.7 % Normal 0.2-2.0 [facility] Comment on above: Performed By: #### L IPA, CMP, CRP, NAT #### [facility] [address] [address] [address] Keturah Fisher EO # 0.2 103/ul Normal 0.0-0.7 [facility] Comment on above: Performed By: #### L IPA, CMP, CRP, NAT #### [facility] [address] [address] [address] Keturah Fisher Eosinophils/100 WBC (Bld) 2.5 % Normal 0.9-7.0 [facility] Comment on above: Performed By: #### L IPA, CMP, CRP, NAT #### [facility] Laboratory [address] [address] [address] Keturah Fisher Erythrocyte distribution width (RBC) [Ratio] 13.1 % Normal 11.0-15.0 [facility] Comment on above: Performed By: #### L IPA, CMP, CRP, NAT #### [facility] [address] [address] [address] Keturah Fisher Hematocrit (Bld) [Volume fraction] 42.4 % Normal 36.0-48.0 [facility] Comment on above: Performed By: #### L IPA, CMP, CRP, NAT #### [facility] [address] [place] [address] Dr. Keturah Fisher Hemoglobin (Bld) [Mass/Vol] 14.1 g/dL Normal 12.0-16.0 [facility] Comment on above: Performed By: #### L IPA, CMP, CRP, NAT #### [facility] [address] [place] [address] Dr. Keturah Fisher IG # 0.03 10e3/ul Normal 0.00-0.03 [facility] Comment on above: Performed By: #### L IPA, CMP, CRP, NAT #### [facility] [address] [place] [address] Dr. Keturah Fisher IG % 0.3 % Normal 0.0-0.5 [facility] Comment on above: Performed By: #### L IPA, CMP, CRP, NAT #### [facility] [address] [place] [address] Dr. Keturah Fisher LYMPH # 2.6 103/ul Normal 1.2-3.8 [facility] Comment on above: Performed By: #### L IPA, CMP, CRP, NAT #### [facility] [address] [place] [address] Dr. Keturah Fisher Lymphocytes/100 WBC (Bld) 27.7 % Normal 20.5-60.0 [facility] Comment on above: Performed By: #### L IPA, CMP, CRP, NAT #### [facility] [address] [place] [address] Dr. Keturah Fisher MANUAL DIFF REQ NO Normal [facility] Comment on above: Performed By: #### L IPA, CMP, CRP, NAT #### [facility] [address] [place] [address] Dr. Keturah Fisher MCH (RBC) [Entitic mass] 32.6 pg Normal 26.7-34.0 [facility] Comment on above: Performed By: #### L IPA, CMP, CRP, NAT #### [facility] [address] [place] [address] Dr. Keturah Fisher MCHC (RBC) [Mass/Vol] 33.3 g/dL Normal 29.9-35.2 [facility] Comment on above: Performed By: #### L IPA, CMP, CRP, NAT #### [facility] [address] [place] [address] Dr. Keturah Fisher MCV (RBC) [Entitic vol] 97.9 fL Normal 81.0-99.0 [facility] Comment on above: Performed By: #### L IPA, CMP, CRP, NAT #### [facility] [address] [place] [address] Dr. Keturah Fisher MONO # 1.2 103/ul Critically high 0.3-0.8 [facility] Comment on above: Performed By: #### L IPA, CMP, CRP, NAT #### [facility] [address] [place] [address] Dr. Keturah Fisher Monocytes/100 WBC (Bld) 12.9 % Critically high 1.7-12.0 [facility] Comment on above: Performed By: #### L IPA, CMP, CRP, NAT #### [facility] [address] [place] [address] Dr. Keturah Fisher NEUT # 5.3 103/ul Normal 1.4-6.5 [facility] Comment on above: Performed By: #### L IPA, CMP, CRP, NAT #### [facility] [address] [place] [address] Dr. Keturah Fisher Neutrophils/100 WBC (Bld) 55.9 % Normal 43.0-75.0 [facility] Comment on above: Performed By: #### L IPA, CMP, CRP, NAT #### [facility] [address] [place] [address] Dr. Keturah Fisher Platelet mean volume (Bld) [Entitic vol] 9.8 fL Normal 9.5-13.5 [facility] Comment on above: Performed By: #### L IPA, CMP, CRP, NAT #### [facility] [address] [place] [address] Dr. Keturah Fisher PLT 229 103/ul Normal 150-450 [facility] Comment on above: Performed By: #### L IPA, CMP, CRP, NAT #### [facility] [address] [address] [address] Keturah Fisher RBC 4.33 106/ul Normal 4.20-5.40 [facility] Comment on above: Performed By: #### L IPA, CMP, CRP, NAT #### [facility] [address] [address] [address] Keturah Fisher WBC 9.5 103/ul Normal 4.0-11.0 [facility] Comment on above: Performed By: #### L IPA, CMP, CRP, NAT #### [facility] [address] [address] [address] Keturah Fisher LIPASEon 08-26-2021 Lipase [Catalytic activity/Vol] 146.0 U/L Normal 73.0-393.0 [facility] Comment on above: Performed By: #### A MY, CMP, LIPA ####[facility] [address] [address]DrGopal Fisher PROF 14(COMP METB)on 022 Albumin [Mass/Vol] 3.5 g/dL Normal 3.4-5.0 [facility] Comment on above: Performed By: #### A MY, CMP, LIPA ####[facility] [address] [address]Dr. Keturah Fisher Albumin/Globulin [Mass ratio] 1.1 {ratio} Normal [facility] Comment on above: Performed By: #### A MY, CMP, LIPA ####[facility] [address] [address]DrGopal Fisher ALP [Catalytic activity/Vol] 139 U/L Critically high 46-116 [facility] Comment on above: Performed By: #### A MY, CMP, LIPA ####[facility] [address] [address]Dr. Keturah Fisher ALT [Catalytic activity/Vol] 21 U/L Normal 14-59 [facility] Comment on above: Performed By: #### A MY, CMP, LIPA ####[facility] [address] [address]Dr. Keturah Fisher Anion gap [Moles/Vol] 11.4 mmol/L Normal [facility] Comment on above: Performed By: #### A MY, CMP, LIPA ####[facility] [address] [address]Dr. Keturah Fisher AST [Catalytic activity/Vol] 21 U/L Normal 15-37 [facility] Comment on above: Performed By: #### A MY, CMP, LIPA ####[facility] [address] [address]Dr. Keturah Fisher Bilirubin [Mass/Vol] 0.2 mg/dL Normal 0.2-1.0 [facility] Comment on above: Performed By: #### A MY, CMP, LIPA ####[facility] [address] [place], [place] [address]Dr. Keturah Fisher Calcium [Mass/Vol] 9.2 mg/dL Normal 8.5-10.1 [facility] Comment on above: Performed By: #### A MY, CMP, LIPA ####[facility] [address] [place], [place] [address]Dr. Keturah Fisher Chloride [Moles/Vol] 107 mmol/L Normal 98-107 [facility] Comment on above: Performed By: #### A MY, CMP, LIPA ####[facility] [address] [place], [place] [address]Dr. Keturah Fisher CO2 [Moles/Vol] 27.9 mmol/L Normal 21.0-32.0 [facility] Comment on above: Performed By: #### A MY, CMP, LIPA ####[facility] [address] [address]Dr. Keturah Fisher Creatinine [Mass/Vol] 0.84 mg/dL Normal 0.55-1.02 [facility] Comment on above: Performed By: #### A MY, CMP, LIPA ####[facility] [address] [id number]. Keturah Fisher EGFR-AF NIGERIEN >60 Normal >=60 [facility] Comment on above: Performed By: #### A MY, CMP, LIPA ####[facility] [address] [address]Dr. Keturah Fisher EGFR-NON AF NIGERIEN >60 Normal >=60 [facility] Comment on above: Performed By: #### A MY, CMP, LIPA ####[facility] [address] [address]Dr. Keturah Fisher Globulin (S) [Mass/Vol] 3.3 g/dL Normal [facility] Comment on above: Performed By: #### A MY, CMP, LIPA ####[facility] [address] [place], [place] [address]Dr. Keturah Fisher Glucose [Mass/Vol] 106 mg/dL Normal 74-106 [facility] Comment on above: Performed By: #### A MY, CMP, LIPA ####[facility] [address] [place], [place] [address]Dr. Keturah Fisher Potassium [Moles/Vol] 4.3 mmol/L Normal 3.5-5.1 [facility] Comment on above: Performed By: #### A MY, CMP, LIPA ####[facility] [address] [address]Dr. Keturah Fisher Protein [Mass/Vol] 6.8 g/dL Normal 6.4-8.2 [facility] Comment on above: Performed By: #### A MY, CMP, LIPA ####[facility] [address] [address]Dr. Keturah Fisher Sodium [Moles/Vol] 142 mmol/L Normal 136-145 [facility] Comment on above: Performed By: #### A MY, CMP, LIPA ####[facility] [address] [address]Dr. Keturah Fisher Urea nitrogen [Mass/Vol] 11.0 mg/dL Normal 7.0-18.0 [facility] Comment on above: Performed By: #### A MY, CMP, LIPA ####[facility] [address] [place], [place] [address]IsGopal Fisher Urea nitrogen/Creatinine [Mass ratio] 13.1 mg/mg Normal [facility] Comment on above: Performed By: #### A MY, CMP, LIPA ####[facility] [address] [place], [place] [address]Cy. Keturah Fisher XR ABD FLAT UP_PA Jorje [...] MILADIS BARRERA Date: 2021-08-26 04:59 Normal [facility] AMYLASEon 08-22-2021 Amylase [Catalytic activity/Vol] 155 U/L Critically high 25-115 [facility] Comment on above: Performed By: #### C MP, NAT, LIPA #### [facility] [address] [address] [address] Keturah Fisher CBC AUTO DIFFon 08-22-2021 BASO # 0.1 103/ul Normal 0.0-0.1 [facility] Comment on above: Performed By: #### L IPA, CMP, CRP, NAT #### [facility] [address] [id number] Keturah Fisher Basophils/100 WBC (Bld) 0.7 % Normal 0.2-2.0 [facility] Comment on above: Performed By: #### L IPA, CMP, CRP, NAT #### [facility] [address] [place] [address] Dr. Keturah Fisher EO # 0.1 103/ul Normal 0.0-0.7 [facility] Comment on above: Performed By: #### L IPA, CMP, CRP, NAT #### [facility] [address] [place] [address] Dr. Keturah Fisher Eosinophils/100 WBC (Bld) 0.7 % Critically low 0.9-7.0 [facility] Comment on above: Performed By: #### L IPA, CMP, CRP, NAT #### [facility] [address] [place] [address] Dr. Keturah Fisher Erythrocyte distribution width (RBC) [Ratio] 13.2 % Normal 11.0-15.0 [facility] Comment on above: Performed By: #### L IPA, CMP, CRP, NAT #### [facility] [address] [place] [address] Dr. Keturah Fisher Hematocrit (Bld) [Volume fraction] 41.1 % Normal 36.0-48.0 [facility] Comment on above: Performed By: #### L IPA, CMP, CRP, NAT #### [facility] [address] [place] [address] Dr. Keturah Fisher Hemoglobin (Bld) [Mass/Vol] 13.8 g/dL Normal 12.0-16.0 [facility] Comment on above: Performed By: #### L IPA, CMP, CRP, NAT #### [facility] [address] [place] [address] Dr. Keturah Fisher IG # 0.03 10e3/ul Normal 0.00-0.03 [facility] Comment on above: Performed By: #### L IPA, CMP, CRP, NAT #### [facility] [address] [place] [address] Dr. Keturah Fisher IG % 0.2 % Normal 0.0-0.5 [facility] Comment on above: Performed By: #### L IPA, CMP, CRP, NAT #### [facility] [address] [place] [address] Dr. Keturah Fisher LYMPH # 2.6 103/ul Normal 1.2-3.8 [facility] Comment on above: Performed By: #### L IPA, CMP, CRP, NAT #### [facility] [address] [place] [address] Dr. Keturah Fisher Lymphocytes/100 WBC (Bld) 21.4 % Normal 20.5-60.0 [facility] Comment on above: Performed By: #### L IPA, CMP, CRP, NAT #### [facility] [address] [place] [address] Dr. Keturah Fisher MANUAL DIFF REQ NO Normal [facility] Comment on above: Performed By: #### L IPA, CMP, CRP, NAT #### [facility] [address] [place] [address] Dr. Keturah Fisher MCH (RBC) [Entitic mass] 32.2 pg Normal 26.7-34.0 [facility] Comment on above: Performed By: #### L IPA, CMP, CRP, NAT #### [facility] [address] [place] [address] Dr. Keturah Fisher MCHC (RBC) [Mass/Vol] 33.6 g/dL Normal 29.9-35.2 [facility] Comment on above: Performed By: #### L IPA, CMP, CRP, NAT #### [facility] [address] [place] [address] Dr. Keturah Fisher MCV (RBC) [Entitic vol] 95.8 fL Normal 81.0-99.0 [facility] Comment on above: Performed By: #### L IPA, CMP, CRP, NAT #### [facility] [address] [place] [address] Dr. Keturah Fisher MONO # 0.9 103/ul Critically high 0.3-0.8 [facility] Comment on above: Performed By: #### L IPA, CMP, CRP, NAT #### [facility] [address] [place] [address] Dr. Keturah Fisher Monocytes/100 WBC (Bld) 7.6 % Normal 1.7-12.0 [facility] Comment on above: Performed By: #### L IPA, CMP, CRP, NAT #### [facility] [address] [address] [address] Keturah Fisher NEUT # 8.5 103/ul Critically high 1.4-6.5 [facility] Comment on above: Performed By: #### L IPA, CMP, CRP, NAT #### [facility] [address] [address] [address] Keturah Fisher Neutrophils/100 WBC (Bld) 69.4 % Normal 43.0-75.0 [facility] Comment on above: Performed By: #### L IPA, CMP, CRP, NAT #### [facility] [address] [place] [address] Dr. Keturah Fisher Platelet mean volume (Bld) [Entitic vol] 9.5 fL Normal 9.5-13.5 [facility] Comment on above: Performed By: #### L IPA, CMP, CRP, NAT #### [facility] [address] [place] [address] Dr. Keturah Fisher PLT 261 103/ul Normal 150-450 [facility] Comment on above: Performed By: #### L IPA, CMP, CRP, NAT #### [facility] [address] [place] [address] Dr. Keturah Fisher RBC 4.29 106/ul Normal 4.20-5.40 [facility] Comment on above: Performed By: #### L IPA, CMP, CRP, NAT #### [facility] [address] [place] [address] Dr. Keturah Fisher WBC 12.2 103/ul Critically high 4.0-11.0 [facility] Comment on above: Performed By: #### L IPA, CMP, CRP, NAT #### [facility] [address] [place] [address] Dr. Keturah Fisher LIPASEon 08-22-2021 Lipase [Catalytic activity/Vol] 419.0 U/L Critically high 73.0-393.0 [facility] Comment on above: Performed By: #### C NAT MEDEL, LIPA #### [facility] [address] [address] [address] Keturah Fisher PROF 14(COMP METB)on 022 Albumin [Mass/Vol] 3.9 g/dL Normal 3.4-5.0 [facility] Comment on above: Performed By: #### C LIZY NAT, LIPA #### [facility] [address] [address] [address] Keturah Fisher Albumin/Globulin [Mass ratio] 1.2 {ratio} Normal [facility] Comment on above: Performed By: #### C NAT MEDEL, LIPA #### [facility] [address] [place] [address] Dr. Keturah Fisher ALP [Catalytic activity/Vol] 137 U/L Critically high 46-116 [facility] Comment on above: Performed By: #### C NAT MEDEL, LIPA #### [facility] [address] [address] [address] Keturah Fisher ALT [Catalytic activity/Vol] 22 U/L Normal 14-59 [facility] Comment on above: Performed By: #### C NAT MEDEL, LIPA #### [facility] [address] [place] [address] Dr. Keturah Fisher Anion gap [Moles/Vol] 12.9 mmol/L Normal [facility] Comment on above: Performed By: #### C NAT MEDEL, LIPA #### [facility] [address] [place] [address] Dr. Keturah Fisher AST [Catalytic activity/Vol] 20 U/L Normal 15-37 [facility] Comment on above: Performed By: #### C NAT MEDEL, LIPA #### [facility] [address] [place] [address] Dr. Keturah Fisher Bilirubin [Mass/Vol] 0.2 mg/dL Normal 0.2-1.0 [facility] Comment on above: Performed By: #### C LIZY NAT, LIPA #### [facility] [address] [place], [place] [id number] Dr. Keturah Fisher Calcium [Mass/Vol] 9.5 mg/dL Normal 8.5-10.1 [facility] Comment on above: Performed By: #### C NAT MEDEL, LIPA #### [facility] [address] [place] [address] Dr. Keturah Fisher Chloride [Moles/Vol] 104 mmol/L Normal 98-107 [facility] Comment on above: Performed By: #### C NAT MEDEL, LIPA #### [facility] [address] [place] [address] Dr. Keturah Fisher CO2 [Moles/Vol] 23.7 mmol/L Normal 21.0-32.0 [facility] Comment on above: Performed By: #### C NAT MEDEL, LIPA #### [facility] [address] [place] [address] Dr. Keturah Fisher Creatinine [Mass/Vol] 0.85 mg/dL Normal 0.55-1.02 [facility] Comment on above: Performed By: #### C NAT MEDEL, LIPA #### [facility] [address] [place] [address] Dr. Keturah Fisher EGFR-AF NIGERIEN >60 Normal >=60 [facility] Comment on above: Performed By: #### C NAT MEDEL, LIPA #### [facility] [address] [place] [address] Dr. Keturah Fisher EGFR-NON AF NIGERIEN >60 Normal >=60 [facility] Comment on above: Performed By: #### C NAT MEDEL, LIPA #### [facility] [address] [place] [address] Dr. Keturah Fisher Globulin (S) [Mass/Vol] 3.3 g/dL Normal [facility] Comment on above: Performed By: #### C NAT MEDEL, LIPA #### [facility] [address] [place] [address] Dr. Keturah Fisher Glucose [Mass/Vol] 130 mg/dL Critically high 74-106 [facility] Comment on above: Performed By: #### C MP, NAT, LIPA #### [facility] [address] [address] [address] Keturah Fisher Potassium [Moles/Vol] 3.6 mmol/L Normal 3.5-5.1 [facility] Comment on above: Performed By: #### C MP, NAT, LIPA #### [facility] [address] [address] [address] Keturah Fisher Protein [Mass/Vol] 7.2 g/dL Normal 6.4-8.2 [facility] Comment on above: Performed By: #### C MP, NAT, LIPA #### [facility] [address] [address] [address] Keturah Fisher Sodium [Moles/Vol] 137 mmol/L Normal 136-145 [facility] Comment on above: Performed By: #### C MP, NAT, LIPA #### [facility] [address] [address] [address] Keturah Fisher Urea nitrogen [Mass/Vol] 9.0 mg/dL Normal 7.0-18.0 [facility] Comment on above: Performed By: #### C LIZY, NAT, LIPA #### [facility] [address] [address] [address] Keturah Fisher Urea nitrogen/Creatinine [Mass ratio] 10.6 mg/mg Normal [facility] Comment on above: Performed By: #### C MP, NAT, LIPA #### [facility] [address] [address] [address] Keturah Fisher XR ABD FLAT UP_PA [...] TRI HANSON Date: 2021-08-22 14:54 Normal [facility] CBC AUTO DIFFon 08-13-2021 BASO # 0.1 103/ul Normal 0.0-0.1 [facility] Comment on above: Performed By: #### C BC ####[facility] [address] [place], [place] [address]Dr. Keturah Fisher Basophils/100 WBC (Bld) 0.6 % Normal 0.2-2.0 [facility] Comment on above: Performed By: #### C BC ####[facility] [address] [place], [place] [address]Dr. Keturah Fisher EO # 0.1 103/ul Normal 0.0-0.7 [facility] Comment on above: Performed By: #### C BC ####[facility] [address] [place], [place] [address]Dr. Keturah Fisher Eosinophils/100 WBC (Bld) 1.1 % Normal 0.9-7.0 [facility] Comment on above: Performed By: #### C BC ####[facility] [address] [place], [place] [address]Dr. Keturah Fisher Erythrocyte distribution width (RBC) [Ratio] 12.6 % Normal 11.0-15.0 [facility] Comment on above: Performed By: #### C BC ####[facility] [address] [place], [place] [address]Dr. Keturah Fisher Hematocrit (Bld) [Volume fraction] 42.3 % Normal 36.0-48.0 [facility] Comment on above: Performed By: #### C BC ####[facility] [address] [place], [place] [address]Dr. Keturah Fisher Hemoglobin (Bld) [Mass/Vol] 14.1 g/dL Normal 12.0-16.0 [facility] Comment on above: Performed By: #### C BC ####[facility] [address] [place], [place] [address]Dr. Keturah Fisher IG # 0.03 10e3/ul Normal 0.00-0.03 [facility] Comment on above: Performed By: #### C BC ####[facility] [address] [id number]. Keturah Fisher IG % 0.3 % Normal 0.0-0.5 [facility] Comment on above: Performed By: #### C BC ####[facility] [address] [id number]. Keturah Fisher LYMPH # 2.4 103/ul Normal 1.2-3.8 [facility] Comment on above: Performed By: #### C BC ####[facility] [address] [address]Dr. Keturah Fisher Lymphocytes/100 WBC (Bld) 22.3 % Normal 20.5-60.0 [facility] Comment on above: Performed By: #### C BC ####[facility] [address] [address]Dr. Keturah Fisher MANUAL DIFF REQ NO Normal [facility] Comment on above: Performed By: #### C BC ####[facility] [address] [id number]. Keturah Phillip MCH (RBC) [Entitic mass] 32.5 pg Normal 26.7-34.0 [facility] Comment on above: Performed By: #### C BC ####[facility] [address] [id number]. Elisaeli Phillip MCHC (RBC) [Mass/Vol] 33.3 g/dL Normal 29.9-35.2 [facility] Comment on above: Performed By: #### C BC ####[facility] [address] [address]Dr. Keturah Fisher MCV (RBC) [Entitic vol] 97.5 fL Normal 81.0-99.0 [facility] Comment on above: Performed By: #### C BC ####[facility] [address] [id number]. Keturah Fisher MONO # 1.0 103/ul Critically high 0.3-0.8 [facility] Comment on above: Performed By: #### C BC ####[facility] [address] [id number]. Keturah Fisher Monocytes/100 WBC (Bld) 8.7 % Normal 1.7-12.0 [facility] Comment on above: Performed By: #### C BC ####[facility] [address] [id number]. Keturah Fisher NEUT # 7.3 103/ul Critically high 1.4-6.5 [facility] Comment on above: Performed By: #### C BC ####[facility] [address] [id number]. Keturah Fisher Neutrophils/100 WBC (Bld) 67.0 % Normal 43.0-75.0 [facility] Comment on above: Performed By: #### C BC ####[facility] [address] [id number]. Keturah Fisher Platelet mean volume (Bld) [Entitic vol] 9.5 fL Normal 9.5-13.5 [facility] Comment on above: Performed By: #### C BC ####[facility] [address] [address]Dr. Keturah Fisher PLT 272 103/ul Normal 150-450 [facility] Comment on above: Performed By: #### C BC ####[facility] [address] [id number]. Keturah Fisher RBC 4.34 106/ul Normal 4.20-5.40 [facility] Comment on above: Performed By: #### C BC ####[facility] [address] [id number]. Keturah Fisher WBC 10.9 103/ul Normal 4.0-11.0 [facility] Comment on above: Performed By: #### C BC ####[facility] [address] [place], [place] [id number]. Keturah Fisher CT ABD/PELV W CONon 08-14-[address] ABD/PELV W CON EXAM: CT ABD/PELV [...] by: HEBERT MCPHERSON Date: 2021-08-13 17:14 Normal [facility] ER URINE PROFILEon 2 Bilirubin Ql (U) Negative Normal NEGATIVE [facility] Comment on above: Performed By: #### C BC #### [facility] [address] [address] [address] Keturah Fisher Clarity (U) CLEAR Normal CLEAR [facility] Comment on above: Performed By: #### C BC #### [facility] [address] [place] [address] Dr. Keturah Fisher Color (U) LT. YELLOW Normal YELLOW [facility] Comment on above: Performed By: #### C BC #### [facility] [address] [address] [address] Keturah BAH A micrscopic examination will be performed if indicated. Normal [facility] Comment on above: Performed By: #### C BC #### [facility] [address] [place] [address] Dr. Keturah Fisher Glucose Ql (U) Negative Normal NEGATIVE [facility] Comment on above: Performed By: #### C BC #### [facility] [address] [place] [address] Dr. Keturah Fisher Hemoglobin Ql (U) Negative Normal NEGATIVE [facility] Comment on above: Performed By: #### C BC #### [facility] [address] [place] [address] Dr. Keturah Fisher Ketones Ql (U) Negative Normal NEGATIVE [facility] Comment on above: Performed By: #### C BC #### [facility] [address] [address] [address] Keturah Fisher LEUKOCYTES Negative Normal NEGATIVE [facility] Comment on above: Performed By: #### C BC #### [facility] [address] [place] [address] Dr. Keturah Fisher Nitrite Ql (U) Negative Normal NEGATIVE [facility] Comment on above: Performed By: #### C BC #### [facility] [address] [place] [address] Dr. Keturah Fisher pH (U) 5.5 [pH] Normal 5-9 [facility] Comment on above: Performed By: #### C BC #### [facility] [address] [place] [address] Dr. Keturah Fisher SPEC GRAVITY 1.010 Normal 1.005-<=1.0 25 [facility] Comment on above: Performed By: #### C BC #### [facility] [address] [place] [address] Dr. Keturah Fisher UA PROTEIN Negative Normal NEGATIVE/ TRACE [facility] Comment on above: Performed By: #### C BC #### [facility] [address] [place] [address] Dr. Keturah Fisher UR MICRO IND NOT INDICATED Normal [facility] Comment on above: Performed By: #### C BC #### [facility] [address] [place] [address] Dr. Keturah Fisher Urobilinogen Qn (U) 0.2 {Marizol'U}/dL Normal 0.2 - 1. 0 [facility] Comment on above: Performed By: #### C BC #### [facility] [address] [place] [address] Dr. Keturah Fisher LIPASEon 08-13-2021 Lipase [Catalytic activity/Vol] 217.0 U/L Normal 73.0-393.0 [facility] Comment on above: Performed By: #### C BC #### [facility] [address] [place] [address] Dr. Keturah Fisher PROF 14(COMP METB)on 022 Albumin [Mass/Vol] 3.9 g/dL Normal 3.4-5.0 [facility] Comment on above: Performed By: #### C BC #### [facility] [address] [place] [address] Dr. Keturah Fisher Albumin/Globulin [Mass ratio] 1.1 {ratio} Normal [facility] Comment on above: Performed By: #### C BC #### [facility] [address] [place] [address] Dr. Keturah Fisher ALP [Catalytic activity/Vol] 140 U/L Critically high 46-116 [facility] Comment on above: Performed By: #### C BC #### [facility] [address] [address] [address] Keturah Fisher ALT [Catalytic activity/Vol] 24 U/L Normal 14-59 [facility] Comment on above: Performed By: #### C BC #### [facility] [address] [address] [address] Keturah Fisher Anion gap [Moles/Vol] 11.7 mmol/L Normal [facility] Comment on above: Performed By: #### C BC #### [facility] [address] [address] [address] Keturah Fisher AST [Catalytic activity/Vol] 19 U/L Normal 15-37 [facility] Comment on above: Performed By: #### C BC #### [facility] [address] [address] [address] Keturah Fisher Bilirubin [Mass/Vol] 0.2 mg/dL Normal 0.2-1.0 [facility] Comment on above: Performed By: #### C BC #### [facility] [address] [place] [address] Dr. Keturah Fisher Calcium [Mass/Vol] 9.9 mg/dL Normal 8.5-10.1 [facility] Comment on above: Performed By: #### C BC #### [facility] [address] [place] [address] Dr. Keturah Fisher Chloride [Moles/Vol] 105 mmol/L Normal 98-107 [facility] Comment on above: Performed By: #### C BC #### [facility] [address] [place] [address] Dr. Keturah Fisher CO2 [Moles/Vol] 29.1 mmol/L Normal 21.0-32.0 [facility] Comment on above: Performed By: #### C BC #### [facility] [address] [place] [address] Dr. Keturah Fisher Creatinine [Mass/Vol] 0.81 mg/dL Normal 0.55-1.02 [facility] Comment on above: Performed By: #### C BC #### [facility] [address] [address] [address] Keturah Fisher EGFR-AF NIGERIEN >60 Normal >=60 [facility] Comment on above: Performed By: #### C BC #### [facility] [id number] Keturah Fisher EGFR-NON AF NIGERIEN >60 Normal >=60 [facility] Comment on above: Performed By: #### C BC #### [facility] [address] [address] [address] Keturah Fisher Globulin (S) [Mass/Vol] 3.4 g/dL Normal [facility] Comment on above: Performed By: #### C BC #### [facility] [address] [place] [address] Dr. Keturah Fisher Glucose [Mass/Vol] 87 mg/dL Normal 74-106 [facility] Comment on above: Performed By: #### C BC #### [facility] [address] [address] [address] Keturah Fisher Potassium [Moles/Vol] 3.8 mmol/L Normal 3.5-5.1 [facility] Comment on above: Performed By: #### C BC #### [facility] [address] [place] [address] Dr. Keturah Fisher Protein [Mass/Vol] 7.3 g/dL Normal 6.4-8.2 [facility] Comment on above: Performed By: #### C BC #### [facility] [address] [address] [address] Keturah Fisher Sodium [Moles/Vol] 142 mmol/L Normal 136-145 [facility] Comment on above: Performed By: #### C BC #### [facility] [address] [place] [address] Dr. Keturah Fisher Urea nitrogen [Mass/Vol] 11.0 mg/dL Normal 7.0-18.0 [facility] Comment on above: Performed By: #### C BC #### [facility] [address] [address] [address] Keturah Fisher Urea nitrogen/Creatinine [Mass ratio] 13.6 mg/mg Normal [facility] Comment on above: Performed By: #### C BC #### [facility] [address] [address] [address] Keturah Fisher Albumin [Mass/volume] in Ser um or PlasmaOrdered By: Keaton Barnard on 08-11-2021 Albumin [Mass/Vol] 3.4 g/dL 3.2-5.5 [facility] Basophils Auto (Bld) [#/Vol] Ordered By: Keaton Barnard on 08-11-2021 Basophils (Bld) [#/Vol] 0.1 10*3/uL 0.0-0.2 [facility] Basophils/100 WBC Auto (Bld) Ordered By: Keaton Barnard on 08-11-2021 Basophils/100 WBC (Bld) 0.9 % . [facility] Bilirubin Test strip Ql (U)O rdered By: Keaton Barnard on 08-11-2021 Bilirubin Ql (U) Negative Negative [facility] Blood hemoglobin measurement (mass/volume)Ordered By: Keaton Barnard on 08-11-2021 Hemoglobin (Bld) [Mass/Vol] 14.1 g/dL 11.8-15.4 [facility] Blood leukocytes automated c ount (number/volume)Ordered By: Keaton Barnard on 08-11-2021 WBC (Bld) [#/Vol] 9.7 10*3/uL 4.5-11.0 [facility] Color Auto (U)Ordered By: Herminia Barnard on 08-11-2021 Color (U) Yellow Yellow [facility] Creatinine and Glomerular fi ltration rate.predicted panel (S/P/Bld)Ordered By: Keaton Barnard on 08-11-2021 Creatinine [Mass/Vol] 0.95 mg/dL 0.44-1.03 [facility] Direct bilirubin measurement Ordered By: Keaton Barnard on 08-11-2021 Bilirubin.direct [Mass/Vol] mg/dL 0.0-0.4 [facility] Eosinophils Auto (Bld) [#/Vo l]Ordered By: Keaton Barnard on 08-11-2021 Eosinophils (Bld) [#/Vol] 0.1 10*3/uL 0.0-0.45 [facility] Eosinophils/100 WBC Auto (Bl d)Ordered By: Keaton Barnard on 08-11-2021 Eosinophils/100 WBC (Bld) 1.3 % . [facility] Erythrocyte distribution wid th Auto (RBC) [Ratio]Ordered By: Keaton Barnard on 08-11-2021 Erythrocyte distribution width (RBC) [Ratio] 13.2 % 11.9-15.3 [facility] Estimated glomerular filtrat ion rate (GFR) non- AmericanOrdered By: Keaton Barnard on 08-11-2021 GFR/1.73 sq M.predicted among non-blacks MDRD (S/P/Bld) [Vol rate/Area] > 60 mL/Min [facility] Globulin Calc (S) [Mass/Vol] Ordered By: Keaton Barnard on 08-11-2021 Globulin (S) [Mass/Vol] 2.6 g/dL [facility] Hematocrit Auto (Bld) [Volum e fraction]Ordered By: Keaton Barnard on 08-11-2021 Hematocrit (Bld) [Volume fraction] 42.1 % 34.0-46.4 [facility] Ketones Auto test strip (U) [Mass/Vol]Ordered By: Keaton Barnard on 08-11-2021 Ketones (U) [Mass/Vol] Negative Negative Fi [facility] - Chemistry and C hemistry - challengeOrdered By: Keaton Barnard on 08-11-2021 Lipase [Catalytic activity/Vol] 89.0 U/L 22-51 [facility] Laboratory - CoagulationOrde red By: Keaton Barnard on 08-11-2021 PT Coag (PPP) [Time] 12.5 s 9.0-12.9 [facility] Laboratory - Hematology and Cell countsOrdered By: Keaton Barnard on 08-11-2021 Nucleated RBC/100 WBC (Bld) [Ratio] 0.1 % 0-0.5 [facility] Lymphocytes Auto (Bld) [#/Vo l]Ordered By: Keaton Barnard on 08-11-2021 Lymphocytes (Bld) [#/Vol] 2.5 10*3/uL 1.00-4.8 [facility] Lymphocytes/100 WBC Auto (Bl d)Ordered By: Keaton Barnard on 08-11-2021 Lymphocytes/100 WBC (Bld) 25.8 % . [facility] MCH Auto (RBC) [Entitic mass ]Ordered By: Keaton Barnard on 08-11-2021 MCH (RBC) [Entitic mass] 32.4 pg 24.7-34.3 [facility] MCHC Auto (RBC) [Mass/Vol]Or dered By: Keaton Barnard on 08-11-2021 MCHC (RBC) [Mass/Vol] 33.4 g/dL 32.0-35.0 [facility] MCV Auto (RBC) [Entitic vol] Ordered By: Keaton Barnard on 08-11-2021 MCV (RBC) [Entitic vol] 96.8 fL 80-100 [facility] Monocytes Auto (Bld) [#/Vol] Ordered By: Keaton Barnard on 08-11-2021 Monocytes (Bld) [#/Vol] 0.8 10*3/uL 0.0-0.8 [facility] Monocytes/100 WBC Auto (Bld) Ordered By: Keaton Barnard on 08-11-2021 Monocytes/100 WBC (Bld) 8.7 % . [facility] Neutrophils Auto (Bld) [#/Vo l]Ordered By: Keaton Barnard on 08-11-2021 Neutrophils (Bld) [#/Vol] 6.1 10*3/uL 1.8-7.7 [facility] Neutrophils/100 WBC Auto (Bl d)Ordered By: Keaton Barnard on 08-11-2021 Neutrophils/100 WBC (Bld) 63.3 % . [facility] Nitrite Test strip Ql (U)Ord ered By: Keaton Barnard on 08-11-2021 Nitrite Ql (U) Negative Negative [facility] No Panel InformationOrdered By: Keaton Barnard on 08-11-2021 Estimated GFR () > 60 mL/Min [facility] Comment on above: GFR estimated refere nce range: According to KDOQI guidelines, <60 ml/min/1.73m2 is sufficient to diagnose a patient with chronic kidney disease. Pharmacy Creatinine Clearance (Chem 62.33 [facility] Platelet mean volume Auto (B ld) [Entitic vol]Ordered By: Keaton Barnard on 08-11-2021 Platelet mean volume (Bld) [Entitic vol] 8.0 fL 6.3-10.7 [facility] Platelet poor plasma interna tional normalized ratio (INR) by coagulation assay (relatOrdered By: Keaton Barnard on 08-11-2021 INR Coag (PPP) [Relative time] 1.1 {INR} [facility] Comment on above: INR Therapeutic Rang [...] 08-11-2021 Platelets (Bld) [#/Vol] 252 10*3/uL 150-450 [facility] Protein Auto test strip (U) [Mass/Vol]Ordered By: Keaton Barnard on 08-11-2021 Protein (U) [Mass/Vol] Negative Negative Fi [facility] Protein [Mass/volume] in Ser um or PlasmaOrdered By: Keaton Barnard on 08-11-2021 Protein [Mass/Vol] 6.0 g/dL 6.1-7.9 [facility] RBC Auto (Bld) [#/Vol]Ordere d By: Keaton Barnard on 08-11-2021 RBC (Bld) [#/Vol] 4.35 10*6/uL 3.60-5.00 [facility] Serum or plasma alanine hughes otransferase measurement without P-5'-P (enzymatic activiOrdered By: Keaton Barnard on 08-11-2021 ALT No additional P-5'-P [Catalytic activity/Vol] 12 U/L 10-60 [facility] Serum or plasma albumin/glob ulin mass ratioOrdered By: Keaton Barnard on 08-11-2021 Albumin/Globulin [Mass ratio] 1.3 {ratio} [facility] Serum or plasma alkaline jaqueline sphatase measurement (enzymatic activity/volume)Ordered By: Keaton Barnard on 08-11-2021 ALP [Catalytic activity/Vol] 98 U/L 32-92 [facility] Serum or plasma aspartate am inotransferase measurement (enzymatic activity/volume)Ordered By: Keaton Barnard on 08-11-2021 AST [Catalytic activity/Vol] 17 U/L 10-42 [facility] Serum or plasma calcium priscilla urement (mass/volume)Ordered By: Keaton Barnard on 08-11-2021 Calcium [Mass/Vol] 9.3 mg/dL 8.2-10.2 [facility] Serum or plasma chloride daron surement (moles/volume)Ordered By: Keaton Barnard on 08-11-2021 Chloride [Moles/Vol] 104 mmol/L 95-114 [facility] Serum or plasma glucose priscilla urement (mass/volume)Ordered By: Keaton Barnard on 08-11-2021 Glucose [Mass/Vol] 95 mg/dL 70-100 [facility] Comment on above: ADA recommended refe rence range Random Glucose Reference Range is dependent on time and content of last meal. Glucose of more than 200 mg/dL in a nonstressed, ambulatory subject supports the diagnosis of Diabetes Mellitus. Serum or plasma non-glucuron idated bilirubin measurement (mass/volume)Ordered By: Keaton Barnard on 08-11-2021 Bilirubin.indirect [Mass/Vol] TNP [facility] Comment on above: Test not performed Serum or plasma potassium me asurement (moles/volume)Ordered By: Keaton Barnard on 08-11-2021 Potassium [Moles/Vol] 3.8 mmol/L 3.5-5.1 [facility] Serum or plasma sodium measu rement (moles/volume)Ordered By: Keaton Barnard on 08-11-2021 Sodium [Moles/Vol] 138 mmol/L 136-146 [facility] Serum or plasma total biliru bin measurement (mass/volume)Ordered By: Keaton Barnard on 08-11-2021 Bilirubin [Mass/Vol] 0.3 mg/dL 0.3-1.2 [facility] Serum or plasma total carbon dioxide measurement (moles/volume)Ordered By: Keaton Barnard on 08-11-2021 CO2 [Moles/Vol] 24.8 mmol/L 22.0-30.0 [facility] Serum or plasma urea nitroge n measurement (mass/volume)Ordered By: Keaton Barnard on 08-11-2021 Urea nitrogen [Mass/Vol] 10 mg/dL 9- [facility] Specific gravity Auto test s trip (U) [Rel density]Ordered By: Keaton Barnard on 08-11-2021 Specific gravity (U) [Rel density] 1.028 1.001-1.030 [facility] Troponin I.cardiac [Mass/vol ume] in Serum or Plasma by High sensitivity methodOrdered By: Keaton Barnard on 08-11-2021 Troponin I.cardiac High sensitivity method [Mass/Vol] 3 pg/mL 0-15 [facility] Urine clarity by refractomet ry automatedOrdered By: Keaton Barnard on 08-11-2021 Clarity Refractometry automated (U) Clear Clear [facility] Urine glucose measurement by automated test strip (mass/volume)Ordered By: Keaton Barnard on 08-11-2021 Glucose Auto test strip (U) [Mass/Vol] Normal mg/dL Normal [facility] Urine hemoglobin detection b y automated test stripOrdered By: Keaton Barnard on 08-11-2021 Hemoglobin Auto test strip Ql (U) Negative Negative [facility] Urine leukocyte esterase det ection by automated test stripOrdered By: Keaton Barnard on 08-11-2021 Leukocyte esterase Auto test strip Ql (U) Negative Negative [facility] Urobilinogen Auto test strip (U) [Mass/Vol]Ordered By: Keaton Barnard on 08-11-2021 Urobilinogen (U) [Mass/Vol] Normal mg/dL Normal [facility] pH Auto test strip (U)Ordere d By: Keaton Barnard on 08-11-2021 pH (U) 5.0 [pH] 5.0-9.0 [facility] AMYLASEon 07-31-2021 Amylase [Catalytic activity/Vol] 158 U/L Critically high 25-115 [facility] Comment on above: Performed By: #### L IPA, CMP, CRP, NAT #### [facility] [address] [place] [address] Dr. Keturah Fisher CBC AUTO DIFFon 07-31-2021 BASO # 0.1 103/ul Normal 0.0-0.1 [facility] Comment on above: Performed By: #### C BC ####[facility] [address] [address]DrGopal Fisher Basophils/100 WBC (Bld) 0.7 % Normal 0.2-2.0 [facility] Comment on above: Performed By: #### C BC ####[facility] [address] [place], [place] [address]DrGopal Fisher EO # 0.1 103/ul Normal 0.0-0.7 [facility] Comment on above: Performed By: #### C BC ####[facility] [address] [place], [place] [address]DrGopal Fisher Eosinophils/100 WBC (Bld) 0.9 % Normal 0.9-7.0 [facility] Comment on above: Performed By: #### C BC ####[facility] [address] [place], [place] [address]DrGopal Fisher Erythrocyte distribution width (RBC) [Ratio] 12.7 % Normal 11.0-15.0 [facility] Comment on above: Performed By: #### C BC ####[facility] [address] [place], [place] [address]DrGopal Fisher Hematocrit (Bld) [Volume fraction] 43.2 % Normal 36.0-48.0 [facility] Comment on above: Performed By: #### C BC ####[facility] [address] [place], [place] [address]Dr. Keturah Fisher Hemoglobin (Bld) [Mass/Vol] 14.5 g/dL Normal 12.0-16.0 [facility] Comment on above: Performed By: #### C BC ####[facility] [address] [address]DrGopal Fisher IG # 0.04 10e3/ul Critically high 0.00-0.03 [facility] Comment on above: Performed By: #### C BC ####[facility] [address] [id number]. Keturah Fisher IG % 0.4 % Normal 0.0-0.5 [facility] Comment on above: Performed By: #### C BC ####[facility] [address] [id number]. Keturah Fisher LYMPH # 2.8 103/ul Normal 1.2-3.8 [facility] Comment on above: Performed By: #### C BC ####[facility] [address] [id number]. Keturah Fisher Lymphocytes/100 WBC (Bld) 24.9 % Normal 20.5-60.0 [facility] Comment on above: Performed By: #### C BC ####[facility] [address] [id number]. Keturah Fisher MANUAL DIFF REQ NO Normal [facility] Comment on above: Performed By: #### C BC ####[facility] [address] [id number]. Keturah Fisher MCH (RBC) [Entitic mass] 32.7 pg Normal 26.7-34.0 [facility] Comment on above: Performed By: #### C BC ####[facility] [address] [id number]. Keturah Fisher MCHC (RBC) [Mass/Vol] 33.6 g/dL Normal 29.9-35.2 [facility] Comment on above: Performed By: #### C BC ####[facility] [address] [id number]. Keturah Fisher MCV (RBC) [Entitic vol] 97.5 fL Normal 81.0-99.0 [facility] Comment on above: Performed By: #### C BC ####[facility] [address] [id number]. Keturah Fisher MONO # 0.9 103/ul Critically high 0.3-0.8 [facility] Comment on above: Performed By: #### C BC ####[facility] [address] [id number]. Keturah Fisher Monocytes/100 WBC (Bld) 8.1 % Normal 1.7-12.0 [facility] Comment on above: Performed By: #### C BC ####[facility] [address] [id number]. Keturah Fisher NEUT # 7.3 103/ul Critically high 1.4-6.5 [facility] Comment on above: Performed By: #### C BC ####[facility] [address] [id number]. Keturah Fisher Neutrophils/100 WBC (Bld) 65.0 % Normal 43.0-75.0 [facility] Comment on above: Performed By: #### C BC ####[facility] [address] [address]Dr. Keturah Fisher Platelet mean volume (Bld) [Entitic vol] 10.0 fL Normal 9.5-13.5 [facility] Comment on above: Performed By: #### C BC ####[facility] [address] [id number]. Keturah Fisher PLT 245 103/ul Normal 150-450 [facility] Comment on above: Performed By: #### C BC ####[facility] [address] [id number]. Keturah Fisher RBC 4.43 106/ul Normal 4.20-5.40 [facility] Comment on above: Performed By: #### C BC ####[facility] [address] [id number]. Keturah Fisher WBC 11.2 103/ul Critically high 4.0-11.0 [facility] Comment on above: Performed By: #### C BC ####[facility] [address] [address]Dr. Keturah Fisher LIPASEon 07-31-2021 Lipase [Catalytic activity/Vol] 439.0 U/L Critically high 73.0-393.0 [facility] Comment on above: Performed By: #### L IPA, CMP, CRP, NAT #### [facility] [address] [place] [address] Dr. Keturah Fisher PROF 14(COMP METB)on 022 Albumin [Mass/Vol] 3.6 g/dL Normal 3.4-5.0 [facility] Comment on above: Performed By: #### L IPA, CMP, CRP, NAT #### [facility] [address] [place] [address] Dr. Keturah Fisher Albumin/Globulin [Mass ratio] 1.1 {ratio} Normal [facility] Comment on above: Performed By: #### L IPA, CMP, CRP, NAT #### [facility] [address] [place] [address] Dr. Keturah Fisher ALP [Catalytic activity/Vol] 119 U/L Critically high 46-116 [facility] Comment on above: Performed By: #### L IPA, CMP, CRP, NAT #### [facility] [address] [place] [address] Dr. Keturah Fisher ALT [Catalytic activity/Vol] 20 U/L Normal 14-59 [facility] [facility] Comment on above: Performed By: #### L IPA, CMP, CRP, NAT #### [facility] [address] [place] [address] Dr. Keturah Fisher Anion gap [Moles/Vol] 13.4 mmol/L Normal [facility] Comment on above: Performed By: #### L IPA, CMP, CRP, NAT #### [facility] [address] [place] [address] Dr. Keturah Fisher AST [Catalytic activity/Vol] 16 U/L Normal 15-37 [facility] Comment on above: Performed By: #### L IPA, CMP, CRP, NAT #### [facility] [address] [place] [address] Dr. Keturah Fisher Bilirubin [Mass/Vol] 0.1 mg/dL Critically low 0.2-1.0 [facility] Comment on above: Performed By: #### L IPA, CMP, CRP, NAT #### [facility] [address] [place] [address] Dr. Keturah Fisher Calcium [Mass/Vol] 8.9 mg/dL Normal 8.5-10.1 [facility] Comment on above: Performed By: #### L IPA, CMP, CRP, NAT #### [facility] [address] [place] [address] Dr. Keturah Fisher Chloride [Moles/Vol] 106 mmol/L Normal 98-107 [facility] Comment on above: Performed By: #### L IPA, CMP, CRP, NAT #### [facility] [address] [place] [address] Dr. Keturah Fisher CO2 [Moles/Vol] 25.4 mmol/L Normal 21.0-32.0 [facility] Comment on above: Performed By: #### L IPA, CMP, CRP, NAT #### [facility] [address] [place] [address] Dr. Keturah Fisher Creatinine [Mass/Vol] 0.73 mg/dL Normal 0.55-1.02 [facility] Comment on above: Performed By: #### L IPA, CMP, CRP, NAT #### [facility] [address] [place] [address] Dr. Keturah Fisher EGFR-AF NIGERIEN >60 Normal >=60 [facility] Comment on above: Performed By: #### L IPA, CMP, CRP, NAT #### [facility] [address] [place] [address] Dr. Keturah Fisher EGFR-NON AF NIGERIEN >60 Normal >=60 [facility] Comment on above: Performed By: #### L IPA, CMP, CRP, NAT #### [facility] [address] [place] [address] Dr. Keturah Fisher Globulin (S) [Mass/Vol] 3.2 g/dL Normal [facility] Comment on above: Performed By: #### L IPA, CMP, CRP, NAT #### [facility] [address] [place] [address] Dr. Keturah Fisher Glucose [Mass/Vol] 105 mg/dL Normal 74-106 [facility] Comment on above: Performed By: #### L IPA, CMP, CRP, NAT #### [facility] [address] [address] [address] Keturah Fisher Potassium [Moles/Vol] 3.8 mmol/L Normal 3.5-5.1 [facility] Comment on above: Performed By: #### L IPA, CMP, CRP, NAT #### [facility] [address] [place] [address] Dr. Keturah Fisher Protein [Mass/Vol] 6.8 g/dL Normal 6.4-8.2 [facility] Comment on above: Performed By: #### L IPA, CMP, CRP, NAT #### [facility] [address] [place] [address] Dr. Keturah Fisher Sodium [Moles/Vol] 141 mmol/L Normal 136-145 [facility] Comment on above: Performed By: #### L IPA, CMP, CRP, NAT #### [facility] [address] [place] [address] Dr. Keturah Fisher Urea nitrogen [Mass/Vol] 12.0 mg/dL Normal 7.0-18.0 [facility] Comment on above: Performed By: #### L IPA, CMP, CRP, NAT #### [facility] [address] [place] [address] Dr. Keturah Fisher Urea nitrogen/Creatinine [Mass ratio] 16.4 mg/mg Normal [facility] Comment on above: Performed By: #### L IPA, CMP, CRP, NAT #### [facility] [address] [place] [address] Dr. Keturah Fisher TROPONIN, HIGH SENSITIVITYon 07-31-2021 HSTROP 4.2 pg/mL Normal 4.0-51.3 [facility] Comment on above: Result Comment: CUT- OFF POINTS HAVE BEEN ESTABLISHED BASED ON THE FOURTH UNIVERSAL DEFINITIONS OF MYOCARDIAL INFARCTION. THE UPPER REFERENCE LIMIT (URL) OF TROPONIN, DEFINED THE 99TH PERCENTILE OF cTnI DISTRIBUTION IN A REFERENCE POPULATION, HAS BEEN CONFIRMED THE DECISION THRESHOLD FOR DE DIAGNOSIS. Performed By: #### L IPA, CMP, CRP, NAT #### [facility] [address] [place] [address] Dr. Keturah Fisher AMYLASEon 07-19-2021 Amylase [Catalytic activity/Vol] 198 U/L Critically high 25-115 [facility] Comment on above: Performed By: #### A MY, ROB, CMP ####[facility] [address] [address]Dr. Keturah Fisher CBC AUTO DIFFon 07-19-2021 BASO # 0.1 103/ul Normal 0.0-0.1 [facility] Comment on above: Performed By: #### C BC ####[facility] [address] [address]Dr. Keturah Fisher Basophils/100 WBC (Bld) 0.7 % Normal 0.2-2.0 [facility] Comment on above: Performed By: #### C BC ####[facility] [address] [address]Dr. Keturah Fisher EO # 0.1 103/ul Normal 0.0-0.7 [facility] Comment on above: Performed By: #### C BC ####[facility] [address] [place], [place] [address]Dr. Keturah Fisher Eosinophils/100 WBC (Bld) 1.0 % Normal 0.9-7.0 [facility] Comment on above: Performed By: #### C BC ####[facility] [address] [address]Dr. Keturah Fisher Erythrocyte distribution width (RBC) [Ratio] 12.5 % Normal 11.0-15.0 [facility] Comment on above: Performed By: #### C BC ####[facility] [address] [address]Dr. Keturah Fisher Hematocrit (Bld) [Volume fraction] 42.4 % Normal 36.0-48.0 [facility] Comment on above: Performed By: #### C BC ####[facility] [address] [address]Dr. Keturah Fisher Hemoglobin (Bld) [Mass/Vol] 14.2 g/dL Normal 12.0-16.0 [facility] Comment on above: Performed By: #### C BC ####[facility] [address] [place] [id number]. Keturah Fisher IG # 0.03 10e3/ul Normal 0.00-0.03 [facility] Comment on above: Performed By: #### C BC ####[facility] [address] [place] [id number]. Keturah Fisher IG % 0.3 % Normal 0.0-0.5 [facility] Comment on above: Performed By: #### C BC ####[facility] [address] [place] [id number]. Keturah Fisher LYMPH # 3.0 103/ul Normal 1.2-3.8 [facility] Comment on above: Performed By: #### C BC ####[facility] [address] [address]Dr. Keturah Fisher Lymphocytes/100 WBC (Bld) 29.5 % Normal 20.5-60.0 [facility] Comment on above: Performed By: #### C BC ####[facility] [address] [address]Dr. Keturah Fisher MANUAL DIFF REQ NO Normal [facility] Comment on above: Performed By: #### C BC ####[facility] [address] [address]Dr. Keturah Fisher MCH (RBC) [Entitic mass] 32.8 pg Normal 26.7-34.0 [facility] Comment on above: Performed By: #### C BC ####[facility] [address] [address]Dr. Keturah Fisher MCHC (RBC) [Mass/Vol] 33.5 g/dL Normal 29.9-35.2 [facility] Comment on above: Performed By: #### C BC ####[facility] [address] [address]Dr. Keturah Fisher MCV (RBC) [Entitic vol] 97.9 fL Normal 81.0-99.0 [facility] Comment on above: Performed By: #### C BC ####[facility] [address] [place] [id number]. Keturah Fisher MONO # 1.0 103/ul Critically high 0.3-0.8 [facility] Comment on above: Performed By: #### C BC ####[facility] [address] [place] [id number]. Keturah Fisher Monocytes/100 WBC (Bld) 9.3 % Normal 1.7-12.0 [facility] Comment on above: Performed By: #### C BC ####[facility] [address] [place] [id number]. Keturah Fisher NEUT # 6.1 103/ul Normal 1.4-6.5 [facility] Comment on above: Performed By: #### C BC ####[facility] [address] [place] [id number]. Keturah Fisher Neutrophils/100 WBC (Bld) 59.2 % Normal 43.0-75.0 [facility] Comment on above: Performed By: #### C BC ####[facility] [address] [place] [id number]. Keturah Fisher Platelet mean volume (Bld) [Entitic vol] 9.8 fL Normal 9.5-13.5 [facility] Comment on above: Performed By: #### C BC ####[facility] [address] [place] [id number]. Keturah Fisher PLT 249 103/ul Normal 150-450 [facility] Comment on above: Performed By: #### C BC ####[facility] [address] [place] [id number]. Keturah Fisher RBC 4.33 106/ul Normal 4.20-5.40 [facility] Comment on above: Performed By: #### C BC ####[facility] [address] [place] [id number]. Keturah Fisher WBC 10.2 103/ul Normal 4.0-11.0 [facility] Comment on above: Performed By: #### C BC ####[facility] [address] [place], [place] [address]Dr. Keturah Fisher LIPASEon 07-19-2021 Lipase [Catalytic activity/Vol] 554.0 U/L Critically high 73.0-393.0 [facility] Comment on above: Performed By: #### A MY, LIPA, CMP ####[facility] [address] [address]Dr. Keturah Fisher PROF 14(COMP METB)on 022 Albumin [Mass/Vol] 4.0 g/dL Normal 3.4-5.0 [facility] Comment on above: Performed By: #### A MY, LIPA, CMP ####[facility] [address] [address]Dr. Keturah Fisher Albumin/Globulin [Mass ratio] 1.1 {ratio} Normal [facility] Comment on above: Performed By: #### A MY, LIPA, CMP ####[facility] [address] [place] [address]Dr. Keturah Fisher ALP [Catalytic activity/Vol] 141 U/L Critically high 46-116 [facility] Comment on above: Performed By: #### A MY, LIPA, CMP ####[facility] [address] [address]Dr. Keturah Fisher ALT [Catalytic activity/Vol] 21 U/L Normal 14-59 [facility] Comment on above: Performed By: #### A MY, LIPA, CMP ####[facility] [address] [place] [address]Dr. Keturah Fisher Anion gap [Moles/Vol] 10.3 mmol/L Normal [facility] Comment on above: Performed By: #### A MY, LIPA, CMP ####[facility] [address] [address]Dr. Keturah Fisher AST [Catalytic activity/Vol] 22 U/L Normal 15-37 [facility] Comment on above: Performed By: #### A MY, LIPA, CMP ####[facility] [address] [address]Dr. Keturah Fisher Bilirubin [Mass/Vol] 0.3 mg/dL Normal 0.2-1.0 [facility] Comment on above: Performed By: #### A ROB BERNSTEIN, CMP ####[facility] [address] [address]Dr. Keturah Fisher Calcium [Mass/Vol] 9.9 mg/dL Normal 8.5-10.1 [facility] Comment on above: Performed By: #### A AMANDEEP LIPA, CMP ####[facility] [address] [address]Dr. Keturah Fisher Chloride [Moles/Vol] 103 mmol/L Normal 98-107 [facility] Comment on above: Performed By: #### A ROB BERNSTEIN, CMP ####[facility] [address] [place], [place] [address]Dr. Keturah Fisher CO2 [Moles/Vol] 27.6 mmol/L Normal 21.0-32.0 [facility] Comment on above: Performed By: #### A REBECA BERNSTEINA, CMP ####[facility] [address] [place], [place] [address]Dr. Keturah Fisher Creatinine [Mass/Vol] 0.93 mg/dL Normal 0.55-1.02 [facility] Comment on above: Performed By: #### A ROB BERNSTEIN, CMP ####[facility] [address] [address]Dr. Keturah Fisher EGFR-AF NIGERIEN >60 Normal >=60 [facility] Comment on above: Performed By: #### A AMANDEEP LIPA, CMP ####[facility] [address] [address]Dr. Keturah Fisher EGFR-NON AF NIGERIEN >60 Normal >=60 [facility] Comment on above: Performed By: #### A AMANDEEP LIPA, CMP ####[facility] [address] [place], [place] [address]Dr. Keturah Fisher Globulin (S) [Mass/Vol] 3.5 g/dL Normal [facility] Comment on above: Performed By: #### A AMANDEEP LIPA, CMP ####[facility] [address] [place] [id number]. Keturah Fisher Glucose [Mass/Vol] 99 mg/dL Normal 74-106 [facility] Comment on above: Performed By: #### A ROB BERNSTEIN, CMP ####[facility] [address] [address]Dr. Keturah Fisher Potassium [Moles/Vol] 3.9 mmol/L Normal 3.5-5.1 [facility] Comment on above: Performed By: #### A AMANDEEP LIPA, CMP ####[facility] [address] [place] [id number]. Keturah Fisher Protein [Mass/Vol] 7.5 g/dL Normal 6.4-8.2 [facility] Comment on above: Performed By: #### A AMANDEEP LIPA, CMP ####[facility] [address] [address]Dr. Keturah Fisher Sodium [Moles/Vol] 137 mmol/L Normal 136-145 [facility] Comment on above: Performed By: #### A AMANDEEP LIPA, CMP ####[facility] [address] [address]Dr. Keturah Fisher Urea nitrogen [Mass/Vol] 9.0 mg/dL Normal 7.0-18.0 [facility] Comment on above: Performed By: #### A AMANDEEP LIPA, CMP ####[facility] [address] [address]Dr. Keturah Fisher Urea nitrogen/Creatinine [Mass ratio] 9.7 mg/mg Normal [facility] Comment on above: Performed By: #### A AMANDEEP LIPA, CMP ####[facility] [address] [place] [address]Dr. Keturah Fisher XR ABD FLAT UP_PA Jorje [...] by: LYNNE PERDOMO Date: 2021-07-19 16:57 Normal [facility] COVID Quick Testingon 2021 Result Positive [employer] Other ANES Marcial 11-13-2020 ANES POST HNO ID: [id number] Author: Ion Avila MD Service: Anesthesiology Author Type: Anesthesiologist Type: Anesthesia PostOp Filed: 11/13/2020 12:39 PM Note Text: POST ANESTHESIA EVALUATION NOTE SERVICE DATE: 11/13/2020 SERVICE TIME: 12:39p : 1970 Vitals: 11/13/20 1035 11/13/20 1212 Temp: 36.3 ?C (97.3 ?F) 36 ?C (96.8 ?F) 11/13/20 1035 11/13/20 1212 11/13/20 1220 BP: 117/65 115/70 120/73 11/13/20 1035 11/13/20 1212 11/13/20 1220 Pulse: 91 87 82 11/13/20 1035 11/13/20 1212 11/13/20 1220 Resp: 16 18 18 11/13/20 1035 11/13/20 1212 11/13/20 1220 SpO2: 98% 100% 100% [...] 13, 2020 TIME: 12:38 PM PAGER/CONTACT #: [phone] Normal [facility] NURSING PROGon 11-13-2020 NURSING PROG HNO ID: [id number] Author: Viky Nguyen RN Service: Nursing Author [...] None Electronically Signed By: Yaquelin Nguyen RN [facility] NURSING PROG HNO ID: [id number] Author: Landy Smith RN Service: Nursing Author [...] By: Landy Smith RN In Department: [facility]OLOGY [facility] CHIOMA RAINEY ([id number]) 1970 F Date Time Provider Department 11/07/20 NASREEN GORMAN During your visit today, we recorded the [...] have family/friend present for procedure? transport home:Patient/patient credit representative was told that if they do [...] area. 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 Type of instruction [...] Fully Assessed Reason for Visit: Appointment Confirmation [3500] Prescriptions as of 11/07/2020 - promethazine HCl [...] Status:Closed by NASREEN GORMAN on 11/07/20 Normal [facility] CT ABDOMEN PELVIS W IV [...] Jhoan Beatty MD 03/28/20 Final result Normal [facility] Amylaseon 03-26-2020 Amylase [Catalytic activity/Vol] 185 U/L High 28-100 [facility] Comment on above: Performed By: #### R EJEC, NAT, LIP, CMPX #### [facility] [address] [place] [address] Jewel Sorter: Ion Jasso MD Amylase [Catalytic activity/Vol] 185 U/L High 28 - 100 U/L [place], [place] CBC Auto Differentialon 03-09 Basophils (Bld) [#/Vol] 0.06 10*3/uL [place] Basophils/100 WBC (Bld) 1 % 0 - 2 % [place] Differential Type NOT REPORTED [place] Eosinophils (Bld) [#/Vol] 0.12 10*3/uL [place] Eosinophils/100 WBC (Bld) 1 % 1 - 4 % [place] Erythrocyte distribution width (RBC) [Ratio] 12.4 % 11.8 - 14.4 % [place] Hematocrit (Bld) [Volume fraction] 40.6 % 36.3 - 47.1 % [place] Hemoglobin (Bld) [Mass/Vol] 13.7 g/dL 11.9 - 15.1 g/dL [place] Immature granulocytes (Bld) [#/Vol] 0 % 0 [place] Immature granulocytes (Bld) [#/Vol] 10*3/uL [place] Lymphocytes (Bld) [#/Vol] 2.62 10*3/uL [place] Lymphocytes/100 WBC (Bld) 27 % 24 - 43 % [place] MCH (RBC) [Entitic mass] 33.4 pg 25.2 - 33.5 pg [place] MCHC (RBC) [Mass/Vol] 33.7 g/dL 28.4 - 34.8 g/dL [place] MCV (RBC) [Entitic vol] 99.0 fL 82.6 - 102.9 fL [place] Monocytes (Bld) [#/Vol] 0.78 10*3/uL [place] Monocytes/100 WBC (Bld) 8 % 3 - 12 % [place] Platelet mean volume (Bld) [Entitic vol] 9.4 fL 8.1 - 13.5 fL [place] Platelets (Bld) [#/Vol] 235 10*3/uL [place] Platelets (Bld) [#/Vol] NOT REPORTED [place] RBC (Bld) [#/Vol] 4.10 10*6/uL 3.95 - 5.1 1 m/uL [place] RBC morphology finding Nom (Bld) NOT REPORTED [place] Segmented neutrophils/100 WBC (Bld) 63 % 36 - 65 % [place] Segs Absolute 5.96 [place], [place] WBC (Bld) [#/Vol] 9.6 10*3/uL [place] WBC (Bld) [#/Vol] 0.0 10*3/uL 0.0 per 10 0 WBC [place] WBC Morphology NOT REPORTED [place], [place] CBC with Diffon 03-26-2020 Abs. Basophil 0.06 k/uL Normal 0.00-0.20 [facility] Comment on above: Performed By: #### C DP, LIP #### [facility] [address] [place] [address] Jewel Sorter: Zafar Castillo MD Abs.Imm.Granulocyte <0.03 Normal 0.00-0.30 [facility] Comment on above: Performed By: #### C DP, LIP #### [facility] [address] [place] [address] Jewel Sorter: Zafar Castillo MD Abs.Neutrophil (Seg) 5.96 k/uL Normal 1.50-8.10 [facility] Comment on above: Performed By: #### C DP, LIP #### [facility] [address] [place] [address] Jewel Sorter: Zafar Castillo MD Basophils/100 WBC (Bld) 1 % Normal 0-2 [facility] Comment on above: Performed By: #### C DP, LIP #### [facility] [address] [place] [address] Jewel Sorter: Zafar Castillo MD Eosinophils (Bld) [#/Vol] 0.12 10*3/uL Normal 0.00-0.44 [facility] Comment on above: Performed By: #### C DP, LIP #### [facility] [address] [place], [id number] Jewel Sorter: Zafar Castillo MD Eosinophils/100 WBC (Bld) 1 % Normal 1-4 [facility] Comment on above: Performed By: #### C DP, LIP #### [facility] [address] [place], [id number] Jewel Sorter: Zafar Castillo MD Erythrocyte distribution width (RBC) [Ratio] 12.4 % Normal 11.8-14.4 [facility] Comment on above: Performed By: #### C DP, LIP #### [address] [place] [id number] Jewel Sorter: Zafar Castillo MD Hematocrit (Bld) [Volume fraction] 40.6 % Normal 36.3-47.1 [facility] Comment on above: Performed By: #### C DP, LIP #### [facility] [address] [place], [id number] Jewel Sorter: Zafar Castillo MD Hemoglobin (Bld) [Mass/Vol] 13.7 g/dL Normal 11.9-15.1 [facility] Comment on above: Performed By: #### C DP, LIP #### [facility] [address] [place], [id number] Jewel Sorter: Zafar Castillo MD Immature granulocytes (Bld) [#/Vol] 0 % Normal 0 [facility] Comment on above: Performed By: #### C DP, LIP #### [facility] [address] [place] [id number] Jewel Sorter: Zafar Castillo MD Lymphocytes (Bld) [#/Vol] 2.62 10*3/uL Normal 1.10-3.70 [facility] Comment on above: Performed By: #### C DP, LIP #### [facility] [address] [place], [id number] Jewel Sorter: Zafar Castillo MD Lymphocytes/100 WBC (Bld) 27 % Normal 24-43 [facility] Comment on above: Performed By: #### C DP, LIP #### [facility] [address] [place], [id number] Jewel Sorter: Zafar Castillo MD MCH (RBC) [Entitic mass] 33.4 pg Normal 25.2-33.5 [facility] Comment on above: Performed By: #### C DP, LIP #### [facility] [address] [place] [id number] Jewel Sorter: Zafar Castillo MD MCHC (RBC) [Mass/Vol] 33.7 g/dL Normal 28.4-34.8 [facility] Comment on above: Performed By: #### C DP, LIP #### [address] [place], [id number] Jewel Sorter: Zafar Castillo MD MCV (RBC) [Entitic vol] 99.0 fL Normal 82.6-102.9 [facility] Comment on above: Performed By: #### C DP, LIP #### [address] [place], [id number] Jewel Sorter: Zafar Castillo MD Monocytes (Bld) [#/Vol] 0.78 10*3/uL Normal 0.10-1.20 [facility] Comment on above: Performed By: #### C DP, LIP #### [facility] [address] [place] [address] Jewel Sorter: Zafar Castillo MD Monocytes/100 WBC (Bld) 8 % Normal 3-12 [facility] Comment on above: Performed By: #### C DP, LIP #### [facility] [address] [place], [id number] Jewel Sorter: Zafar Castillo MD Neutrophil (Seg) 63 % Normal 36-65 [facility] Comment on above: Performed By: #### C DP, LIP #### [facility] [address] [place], [place] [id number] Jewel Sorter: Zafar Castillo MD NRBC Automated 0.0 per 100 WBC Normal 0.0 [facility] Comment on above: Performed By: #### C DP, LIP #### [facility] [address] [place], [place] [id number] Jewel Sorter: Zafar Castillo MD Platelet mean volume (Bld) [Entitic vol] 9.4 fL Normal 8.1-13.5 [facility] Comment on above: Performed By: #### C DP, LIP #### [facility] [address] [place], [place] [id number] Jewel Sorter: Zafar Castillo MD Platelets (Bld) [#/Vol] 235 10*3/uL Normal 138-453 [facility] Comment on above: Performed By: #### C DP, LIP #### [address] [place], [place] [id number] Jewel Sorter: Zafar Castillo MD RBC (Bld) [#/Vol] 4.10 10*6/uL Normal 3.95-5.11 [facility] Comment on above: Performed By: #### C DP, LIP #### [facility] [address] [place], [place] [id number] Jewel Sorter: Zafar Castillo MD WBC (Bld) [#/Vol] 9.6 10*3/uL Normal 3.5-11.3 [facility] Comment on above: Performed By: #### C DP, LIP #### [facility] [address] [place], [place] [id number] Jewel Sorter: Zafar Castillo MD Auto Diff Performed NOT REPORTED Normal [facility] Comment on above: Performed By: #### C DP, LIP #### [facility] [address] [place], [place] [id number] Jewel Sorter: Zafar Castillo MD Platelets (Bld) [#/Vol] NOT REPORTED Normal [facility] Comment on above: Performed By: #### C DP, LIP #### [facility] [address] [address] [place], [place] [address] Jewel Sorter: Zafar Castillo MD RBC morphology finding Nom (Bld) NOT REPORTED Normal [facility] Comment on above: Performed By: #### C DP, LIP #### [facility] [address] [place], [id number] Jewel Sorter: Zafar Castillo MD WBC Morphology NOT REPORTED Normal [facility] Comment on above: Performed By: #### C DP, LIP #### [facility] [address] [place], [id number] Jewel Sorter: Zafar Castillo MD Comp Metabolic Pr/rfx MGon 0 03-26-2020 (cont.) Normal [facility] Comment on above: Result Comment: Aver age GFR for 50-59 years old: 93 mL/min/1.73sq m Chronic Kidney Disease: <60 mL/min/1.73sq m Kidney failure: <15 mL/min/1.73sq m eGFR calculated using average adult body mass. Additional eGFR calculator available at: http://www.[employer].com/multiple_crcl_2011.htm Performed By: #### R NAYELYEC, NAT, LIP, CMPX #### [facility] [address] [place] [address] Jewel Sorter: Ion Jasso MD Albumin [Mass/Vol] 4.3 g/dL Normal 3.5-5.2 [facility] Comment on above: Performed By: #### R NAYELYEC, NAT, LIP, CMPX #### [facility] [address] [place], [id number] Jewel Sorter: Ion Jasso MD Albumin/Globulin [Mass ratio] 1.7 {ratio} Normal 1.0-2.5 [facility] Comment on above: Performed By: #### R EJEC, NAT, LIP, CMPX #### [facility] [address] [place], [place] [id number] Jewel Sorter: Ion Jasso MD Alkaline Phos 117 U/L High 35-104 [facility] Comment on above: Performed By: #### R EJEC, NAT, LIP, CMPX #### [facility] [address] [place], [place] [phone] Jewel Sorter: Ion Jasso MD ALT [Catalytic activity/Vol] 11 U/L Normal 5-33 [facility] Comment on above: Performed By: #### R EJEC, NAT, LIP, CMPX #### [address] [place], [place] [phone] Jewel Sorter: Ion Jasso MD Anion gap [Moles/Vol] 9 mmol/L Normal 9-17 [facility] Comment on above: Performed By: #### R EJEC, NAT, LIP, CMPX #### [address] [place], [place] [phone] Jewel Sorter: Ion Jasso MD AST [Catalytic activity/Vol] 18 U/L Normal <32 [facility] Comment on above: Performed By: #### R EJEC, NAT, LIP, CMPX #### [facility] [address] [place] [address] Dr. [place], [place] [phone] Jewel Sorter: Ion Jasso MD Bilirubin Ql (U) 0.15 mg/dL Low 0.3-1.2 [facility] Comment on above: Performed By: #### R EJEC, NAT, LIP, CMPX #### [facility] [address] [place] [address] Dr. [place], [place] [phone] Jewel Sorter: Ion Jasso MD BUN/CRE Ratio 12 Normal 9-20 [facility] Comment on above: Performed By: #### R EJEC, NAT, LIP, CMPX #### [facility] [address] [place], [place] [phone] Jewel Sorter: oIn Jasso MD Calcium [Mass/Vol] 9.7 mg/dL Normal 8.6-10.4 [facility] Comment on above: Performed By: #### R EJEC, NAT, LIP, CMPX #### [facility] [address] [place], [place] [phone] Jewel Sorter: Ion Jasso MD Chloride [Moles/Vol] 102 mmol/L Normal 98-107 [facility] Comment on above: Performed By: #### R EJEC, NAT, LIP, CMPX #### [facility] [address] [place] [address] Dr. [place], [place] [phone] Jewel Sorter: Ion Jasso MD CO2 [Moles/Vol] 25 mmol/L Normal 20-31 [facility] Comment on above: Performed By: #### R EJEC, NAT, LIP, CMPX #### [facility] [address] [place] [address] Dr. [place], [place] [phone] Jewel Sorter: Ion Jasso MD Creatinine [Mass/Vol] 0.74 mg/dL Normal 0.50-0.90 [facility] Comment on above: Performed By: #### R EJEC, NAT, LIP, CMPX #### [facility] [address] [place], [place] [phone] Jewel Sorter: Ion Jasso MD GFR, Amer >60 Normal >60 [facility] Comment on above: Performed By: #### R EJEC, NAT, LIP, CMPX #### [facility] [address] [place] [address] Jewel Sorter: Ion Jasso MD GFR,non Amer >60 Normal >60 [facility] Comment on above: Performed By: #### R EJEC, NAT, LIP, CMPX #### [facility] [address] [place], [place] [phone] Jewel Sorter: Ion Jasso MD Glucose [Mass/Vol] 94 mg/dL Normal 70-99 [facility] Comment on above: Performed By: #### R EJEC, NAT, LIP, CMPX #### [facility] [address] [place], [place] [phone] Jewel Sorter: Ion Jasso MD Potassium [Moles/Vol] 4.2 mmol/L Normal 3.7-5.3 [facility] Comment on above: Performed By: #### R EJEC, NAT, LIP, CMPX #### [address] [place], [place] [phone] Jewel Sorter: Ion Jasso MD Protein [Mass/Vol] 6.8 g/dL Normal 6.4-8.3 [facility] Comment on above: Performed By: #### R EJEC, NAT, LIP, CMPX #### [address] [place], [place] [phone] Jewel Sorter: Ion Jasso MD Sodium [Moles/Vol] 136 mmol/L Normal 135-144 [facility] Comment on above: Performed By: #### R EJEC, NAT, LIP, CMPX #### [address] [place], [place] [phone] Jewel Sorter: Ion Jasso MD Staging: Normal [facility] Comment on above: Result Comment: Stag e 1: Some kidney damage normal GFR Stage 2: Mild kidney damage GFR 60-89 Stage 3: Moderate kidney damage GFR 30-59 Stage 4: Severe kidney damage GFR 15-29 Stage 5: Severe kidney damage GFR <15 ESRD - chronic treatment by dialysis or transplant Performed By: #### R EJEC, NAT, LIP, CMPX #### [address] [place] [address] Jewel Sorter: Ion Jasso MD Urea nitrogen [Mass/Vol] 9 mg/dL Normal 6-20 [facility] Comment on above: Performed By: #### R ANGELINE, NAT, REBECA, CMPX #### [facility] [address] [place] [address] Jewel Sorter: Ion Jasso MD Comprehensive Metabolic Pane l w/ Reflex to MGon 03-26-2020 Albumin [Mass/Vol] 4.3 g/dL 3.5 - 5.2 g/dL [place] Albumin/Globulin [Mass ratio] 1.7 {ratio} [place] ALP [Catalytic activity/Vol] 117 U/L High 35 - 104 U/L [place] ALT [Catalytic activity/Vol] 11 U/L 5 - 33 U/L [place] Anion gap [Moles/Vol] 9 mmol/L 9 - 17 mmol/L [place] AST [Catalytic activity/Vol] 18 U/L <32 [place] Bilirubin Ql (U) 0.15 mg/dL Low 0.3 - 1.2 mg/dL [place] Bun/Cre Ratio 12 [place] Calcium [Mass/Vol] 9.7 mg/dL 8.6 - 10. 4 mg/dL [place] Chloride [Moles/Vol] 102 mmol/L 98 - 10 7 mmol/L [place] CO2 [Moles/Vol] 25 mmol/L 20 - 31 mmol/L [place] Creatinine [Mass/Vol] 0.74 mg/dL 0.5 - 0.9 mg/dL [place] GFR >60 >60 mL/min [place] GFR Non- >60 >60 mL/min [place] Glucose [Mass/Vol] 94 mg/dL 70 - 99 mg/dL [place] Potassium [Moles/Vol] 4.2 mmol/L 3.7 - 5.3 mmol/L [place] Protein [Mass/Vol] 6.8 g/dL 6.4 - 8.3 g/dL [place] Sodium [Moles/Vol] 136 mmol/L 135 - 144 mmol/L [place] Urea nitrogen [Mass/Vol] 9 mg/dL 6 - 20 mg/dL [place] Lactic Acidon 03-26-2020 Lactate [Moles/Vol] 1.3 mmol/L Normal 0.5-2.2 [facility] Comment on above: Performed By: #### C DP, LIP #### [facility] [address] [place] [address] Jewel Sorter: Zafar Castillo MD Lactate [Moles/Vol] 1.3 mmol/L 0.5 - 2. 2 mmol/L [place] Lipaseon 03-26-2020 Lipase [Catalytic activity/Vol] 225 U/L Critically high 13-60 [facility] Comment on above: Performed By: #### R EJEC, NAT, LIP, CMPX #### [facility] [address] [place] [address] Jewel Sorter: Ion Jasso MD Interpretation and review of laboratory results Abnormal [place] Lipase [Catalytic activity/Vol] 225 U/L Critically high 13 - 60 U/L [place] Metabolic Panelon 03-26-2020 GFR/1.73 sq M predicted among non-blacks MDRD (S/P/Bld) [Vol rate/Area] [place] Comment on above: Average GFR for 50-5 9 years old: 93 mL/min/1.73sq m Chronic Kidney Disease: <60 mL/min/1.73sq m Kidney failure: <15 mL/min/1.73sq m eGFR calculated using average adult body mass. Additional eGFR calculator available at: http://www.[employer]/multiple_crcl_2012.htm Stage 1: Some kidney damage normal GFR Stage 2: Mild kidney damage GFR 60-89 Stage 3: Moderate kidney damage GFR 30-59 Stage 4: Severe kidney damage GFR 15-29 Stage 5: Severe kidney damage GFR <15 ESRD - chronic treatment by dialysis or transplant Otheron 03-26-2020 Interpretation and review of laboratory results Abnormal [place] SPECIMEN REJECTIONon 021 Ordered Test CDP [place], [place] Reason for Rejection Unable to perform testing: Specimen clotted. [place] Specimen source Nom (Unsp spec) .BLOOD [place] - NOT REPORTED [place] Specimen Rejectionon 021 Reason for rejection Unable to perform testing: Specimen clotted. Normal [facility] Comment on above: Performed By: #### R EJEC, NAT, LIP, CMPX #### [facility] [address] [place] [address] Dr[place], [place] [phone] Jewel Sorter: Ion Jasso MD Source of sample .BLOOD Normal [facility] Comment on above: Performed By: #### R EJEC, NAT, LIP, CMPX #### [facility] [address] [place] [address] [place] [address] Jewel Sorter: Ion Jasso MD Test ordered [facility] Comment on above: Performed By: #### R EJEC, NAT, LIP, CMPX #### [address] [place] [address] Jewel Sorter: Ion Jasso MD ----- NOT REPORTED [facility] Comment on above: Performed By: #### R EJEC, NAT, LIP, CMPX #### [facility] [address] [place] [address] Jewel Sorter: Ion Jasso MD Urinalysis, Routineon 2020 Acetoacetic Acid,Ur Negative [place] NEG [facility] Comment on above: Performed By: #### C DP, LIP #### [facility] [address] [place] [address] Dr. [place], [place] [phone] Jewel Sorter: Zafar Castillo MD Bilirubin, SemiQt,Ur Negative Normal [facility] Comment on above: Performed By: #### C DP, LIP #### [facility] [address] [place] [address] Jewel Sorter: Zafar Castillo MD Color (U) YELLOW Normal YEL [facility] Comment on above: Performed By: #### C DP, LIP #### [facility] [address] [place] [address] Jewel Sorter: Zafar Castillo MD Glucose Ql (U) Negative Normal NEG [facility] Comment on above: Performed By: #### C DP, LIP #### [facility] [address] [place] [address] Jewel Sorter: Zafar Castillo MD Hemoglobin, Ur Negative Normal NEG [facility] Comment on above: Performed By: #### C DP, LIP #### [facility] [address] [place], [id number] Jewel Sorter: Zafar Castillo MD Leukocyte esterase Test strip Ql (U) Negative Normal [facility] Comment on above: Performed By: #### C DP, LIP #### [address] [place] [address] Jewel Sorter: Zafar Castillo MD Nitrite,Ur Negative Normal [facility] Comment on above: Performed By: #### C DP, LIP #### [facility] [address] [place] [address] Jewel Sorter: Zafar Castillo MD pH (U) 5.5 [pH] Normal 5.0-9.0 [facility] Comment on above: Performed By: #### C DP, LIP #### [facility] [address] [place] [address] Jewel Sorter: Zafar Castillo MD Protein Ql (U) Negative Normal NEG [facility] Comment on above: Performed By: #### C DP, LIP #### [facility] [address] [place] [phone] Jewel Sorter: Zafar Castillo MD Specific gravity (U) [Rel density] 1.010 Normal 1.010-1.020 [facility] Comment on above: Performed By: #### C DP, LIP #### [facility] [address] [place], [place] [phone] Jewel Sorter: Zafar Castillo MD Turbidity CLEAR Normal CLEAR [facility] Comment on above: Performed By: #### C DP, LIP #### [facility] [address] [place], [place] [phone] Jewel Sorter: Zafar Castillo MD Urobilinogen,Ur Normal Normal NORM [facility] Comment on above: Performed By: #### C DP, LIP #### [facility] [address] [place], [place] [phone] Jewel Sorter: Zafar Castillo MD Comment NOT REPORTED Normal [facility] Comment on above: Performed By: #### C DP, LIP #### [facility] [address] [place], [place] [phone] Jewel Sorter: Zafar Castillo MD Urinalysis, reflex to micros copicon 03-26-2020 Bilirubin Urine Negative NEGATIVE [facility]- [place], [place] Color, UA YELLOW YELLOW [facility], [place] Glucose, Ur Negative NEGATIVE [facility], [place] Ketones Ql (U) Negative NEGATIVE [facility]- [place] Leukocyte esterase Test strip Ql (U) Negative NEGATIVE [facility]- [place] Nitrite, Urine Negative NEGATIVE [facility]- [place] pH, UA 5.5 [facility] [place] Protein (U) [Mass/Vol] Negative NEGATIVE [facility]- [place] Specific [place], UA 1.010 [facility]- [place] Turbidity UA CLEAR CLEAR [facility], [place] Urinalysis Comments NOT REPORTED [facility] Urine Hgb Negative NEGATIVE [facility] Urobilinogen, Urine Normal Normal [facility], [place] CBC auto differentialon 06-1 8-2020 Basophils (Bld) [#/Vol] 0.04 10*3/uL [place] Basophils/100 WBC (Bld) 1 % 0 - 2 % [place] Differential Type NOT REPORTED [place] Eosinophils (Bld) [#/Vol] 0.10 10*3/uL [place] Eosinophils/100 WBC (Bld) 1 % 1 - 4 % [place] Erythrocyte distribution width (RBC) [Ratio] 13.0 % 11.8 - 14.4 % [place] Hematocrit (Bld) [Volume fraction] 35.2 % Low 36.3 - 47.1 % [place] Hemoglobin (Bld) [Mass/Vol] 11.7 g/dL Low 11.9 - 15.1 g/dL [place] Immature granulocytes (Bld) [#/Vol] 10*3/uL [place] Immature granulocytes (Bld) [#/Vol] 0 % 0 [place] Interpretation and review of laboratory results Abnormal [place] Lymphocytes (Bld) [#/Vol] 1.87 10*3/uL [place] Lymphocytes/100 WBC (Bld) 22 % Low 24 - 43 % [place] MCH (RBC) [Entitic mass] 32.5 pg 25.2 - 33.5 pg [place] MCHC (RBC) [Mass/Vol] 33.2 g/dL 28.4 - 34.8 g/dL [place] MCV (RBC) [Entitic vol] 97.8 fL 82.6 - 102.9 fL [place] Monocytes (Bld) [#/Vol] 0.86 10*3/uL [place] Monocytes/100 WBC (Bld) 10 % 3 - 12 % [place] Platelet mean volume (Bld) [Entitic vol] 9.8 fL 8.1 - 13.5 fL [place] Platelets (Bld) [#/Vol] 178 10*3/uL [place] RBC (Bld) [#/Vol] 3.60 10*6/uL Low 3.95 - 5.1 1 m/uL [place] Segmented neutrophils/100 WBC (Bld) 66 % High 36 - 65 % [place] Segs Absolute 5.53 [place] WBC (Bld) [#/Vol] 0.0 10*3/uL 0.0 per 10 0 WBC [place] WBC (Bld) [#/Vol] 8.4 10*3/uL [place] CBC with Diffon 08-25-2019 Abs. Basophil 0.04 k/uL Normal 0.00-0.20 [facility] Comment on above: Performed By: #### C DP, LIP #### [address] [place] [address] Jewel Sorter: Zafar Castillo MD Abs.Imm.Granulocyte <0.03 Normal 0.00-0.30 [facility] Comment on above: Performed By: #### C DP, LIP #### [address] [place], [place] [phone] Jewel Sorter: Zafar Castillo MD Abs.Neutrophil (Seg) 5.53 k/uL Normal 1.50-8.10 [facility] Comment on above: Performed By: #### C DP, LIP #### [address] [place] [address] Jewel Sorter: Zafar Castillo MD Basophils/100 WBC (Bld) 1 % Normal 0-2 [facility] Comment on above: Performed By: #### C DP, LIP #### [address] [place], [place] [phone] Jewel Sorter: Zafar Castillo MD Eosinophils (Bld) [#/Vol] 0.10 10*3/uL Normal 0.00-0.44 [facility] Comment on above: Performed By: #### C DP, LIP #### [address] [place], [id number] Jewel Sorter: Zafar Castillo MD Eosinophils/100 WBC (Bld) 1 % Normal 1-4 [facility] Comment on above: Performed By: #### C DP, LIP #### [facility] [address] [place], [place] [phone] Jewel Sorter: Zafar Castillo MD Erythrocyte distribution width (RBC) [Ratio] 13.0 % Normal 11.8-14.4 [facility] Comment on above: Performed By: #### C DP, LIP #### [facility] [address] [place], [place] [phone] Jewel Sorter: Zafar Castillo MD Hematocrit (Bld) [Volume fraction] 35.2 % Low 36.3-47.1 [facility] Comment on above: Performed By: #### C DP, LIP #### [address] [place], [id number] Jewel Sorter: Zafar Castillo MD Hemoglobin (Bld) [Mass/Vol] 11.7 g/dL Low 11.9-15.1 [facility] Comment on above: Performed By: #### C DP, LIP #### [address] [place] [address] Jewel Sorter: Zafar Castillo MD Immature granulocytes (Bld) [#/Vol] 0 % Normal 0 [facility] Comment on above: Performed By: #### C DP, LIP #### [facility] [address] [place], [id number] Jewel Sorter: Zafar Castillo MD Lymphocytes (Bld) [#/Vol] 1.87 10*3/uL Normal 1.10-3.70 [facility] Comment on above: Performed By: #### C DP, LIP #### [facility] [address] [place], [place] [phone] Jewel Sorter: Zafar Castillo MD Lymphocytes/100 WBC (Bld) 22 % Low 24-43 [facility] Comment on above: Performed By: #### C DP, LIP #### [facility] [address] [place], [place] [phone] Jewel Sorter: Zafar Castillo MD MCH (RBC) [Entitic mass] 32.5 pg Normal 25.2-33.5 [facility] Comment on above: Performed By: #### C DP, LIP #### [facility] [address] [place], [place] [address] Jewel Sorter: Zafar Castillo MD MCHC (RBC) [Mass/Vol] 33.2 g/dL Normal 28.4-34.8 [facility] Comment on above: Performed By: #### C DP, LIP #### [facility] [address] [place] [phone] Jewel Sorter: Zafar Castillo MD MCV (RBC) [Entitic vol] 97.8 fL Normal 82.6-102.9 [facility] Comment on above: Performed By: #### C DP, LIP #### [facility] [address] [place], [id number] Jewel Sorter: Zafar Castillo MD Monocytes (Bld) [#/Vol] 0.86 10*3/uL Normal 0.10-1.20 [facility] Comment on above: Performed By: #### C DP, LIP #### [facility] [address] [place], [place] [address] Jewel Sorter: Zafar Castillo MD Monocytes/100 WBC (Bld) 10 % Normal 3-12 [facility] Comment on above: Performed By: #### C DP, LIP #### [facility] [address] [place] [phone] Jewel Sorter: Zafar Castillo MD Neutrophil (Seg) 66 % High 36-65 [facility] Comment on above: Performed By: #### C DP, LIP #### [facility] [address] [place], [id number] Jewel Sorter: Zafar Castillo MD NRBC Automated 0.0 per 100 WBC Normal 0.0 [facility] Comment on above: Performed By: #### C DP, LIP #### [facility] [address] [place], [place] [phone] Jewel Sorter: Zafar Castillo MD Platelet mean volume (Bld) [Entitic vol] 9.8 fL Normal 8.1-13.5 [facility] Comment on above: Performed By: #### C DP, LIP #### [facility] [address] [place] [address] Jewel Sorter: Zafar Castillo MD Platelets (Bld) [#/Vol] 178 10*3/uL Normal 138-453 [facility] Comment on above: Performed By: #### C DP, LIP #### [address] [place] [phone] Jewel Sorter: Zafar Castillo MD RBC (Bld) [#/Vol] 3.60 10*6/uL Low 3.95-5.11 [facility] Comment on above: Performed By: #### C DP, LIP #### [address] [place], [place] [phone] Jewel Sorter: Zafar Castillo MD WBC (Bld) [#/Vol] 8.4 10*3/uL Normal 3.5-11.3 [facility] Comment on above: Performed By: #### C DP, LIP #### [facility] [address] [place], [place] [phone] Jewel Sorter: Zafar Castillo MD Auto Diff Performed NOT REPORTED Normal [facility] Comment on above: Performed By: #### C DP, LIP #### [facility] [address] [place], [place] [phone] Jewel Sorter: Zafar Castillo MD Platelets (Bld) [#/Vol] NOT REPORTED Normal [facility] [place] Comment on above: Performed By: #### C DP, LIP #### [facility] [address] [place] [address] Jewel Sorter: Zafar Castillo MD RBC morphology finding Nom (Bld) NOT REPORTED Normal [place] Comment on above: Performed By: #### C DP, LIP #### [facility] [address] [place] [address] Jewel Sorter: Zafar Castillo MD WBC Morphology NOT REPORTED Normal [place] Comment on above: Performed By: #### C DP, LIP #### [facility] [address] [place] [address] Jewel Sorter: Zafar Castillo MD Lipaseon 08-25-2019 Lipase [Catalytic activity/Vol] 42 U/L Normal 13-60 [facility] Comment on above: Performed By: #### C DP, LIP #### [facility] [address] [place] [address] Jewel Sorter: Zafar Castillo MD Lipase [Catalytic activity/Vol] 42 U/L 13 - 60 U/L [place] CBC auto differentialon 08-07 Basophils (Bld) [#/Vol] 0.04 10*3/uL [place] Basophils/100 WBC (Bld) 1 % 0 - 2 % [place] Differential Type NOT REPORTED [place] Eosinophils (Bld) [#/Vol] 0.08 10*3/uL [place] Eosinophils/100 WBC (Bld) 1 % 1 - 4 % [place] Erythrocyte distribution width (RBC) [Ratio] 12.9 % 11.8 - 14.4 % [place] Hematocrit (Bld) [Volume fraction] 35.9 % Low 36.3 - 47.1 % [place] Hemoglobin (Bld) [Mass/Vol] 11.9 g/dL 11.9 - 15.1 g/dL [place] Immature granulocytes (Bld) [#/Vol] 0 % 0 [place] Immature granulocytes (Bld) [#/Vol] 0.03 10*3/uL [place] Interpretation and review of laboratory results Abnormal [place] Lymphocytes (Bld) [#/Vol] 1.79 10*3/uL [place] Lymphocytes/100 WBC (Bld) 22 % Low 24 - 43 % [place] MCH (RBC) [Entitic mass] 32.3 pg 25.2 - 33.5 pg [place] MCHC (RBC) [Mass/Vol] 33.1 g/dL 28.4 - 34.8 g/dL [place] MCV (RBC) [Entitic vol] 97.6 fL 82.6 - 102.9 fL [place] Monocytes (Bld) [#/Vol] 0.75 10*3/uL [place] Monocytes/100 WBC (Bld) 9 % 3 - 12 % [place] Platelet mean volume (Bld) [Entitic vol] 10.1 fL 8.1 - 13.5 fL [place] Platelets (Bld) [#/Vol] 176 10*3/uL [place] Platelets (Bld) [#/Vol] NOT REPORTED [place] RBC (Bld) [#/Vol] 3.68 10*6/uL Low 3.95 - 5.1 1 m/uL [place] RBC morphology finding Nom (Bld) NOT REPORTED [place] Segmented neutrophils/100 WBC (Bld) 67 % High 36 - 65 % [place] Segs Absolute 5.61 [place] WBC (Bld) [#/Vol] 0.0 10*3/uL 0.0 per 10 0 WBC [place] WBC (Bld) [#/Vol] 8.3 10*3/uL [place] WBC Morphology NOT REPORTED [place] CBC with Diffon 08-24-2019 Abs. Basophil 0.04 k/uL Normal 0.00-0.20 [facility] Comment on above: Performed By: #### C DP, LIP #### [facility] [address] [place], [place] [address] Jewel Sorter: Zafar Castillo MD Abs.Imm.Granulocyte 0.03 k/uL Normal 0.00-0.30 [facility] Comment on above: Performed By: #### C DP, LIP #### [facility] [address] [place] [address] Jewel Sorter: Zafar Castillo MD Abs.Neutrophil (Seg) 5.61 k/uL Normal 1.50-8.10 [facility] Comment on above: Performed By: #### C DP, LIP #### [address] [place] [id number] Jewel Sorter: Zafar Castillo MD Basophils/100 WBC (Bld) 1 % Normal 0-2 [facility] Comment on above: Performed By: #### C DP, LIP #### [address] [place] [address] Jewel Sorter: Zafar Castillo MD Eosinophils (Bld) [#/Vol] 0.08 10*3/uL Normal 0.00-0.44 [facility] Comment on above: Performed By: #### C DP, LIP #### [address] [place] [address] Jewel Sorter: Zafar Castillo MD Eosinophils/100 WBC (Bld) 1 % Normal 1-4 [facility] Comment on above: Performed By: #### C DP, LIP #### [address] [place] [address] Jewel Sorter: Zafar Castillo MD Erythrocyte distribution width (RBC) [Ratio] 12.9 % Normal 11.8-14.4 [facility] Comment on above: Performed By: #### C DP, LIP #### [address] [place] [id number] Jewel Sorter: Zafar Castillo MD Hematocrit (Bld) [Volume fraction] 35.9 % Low 36.3-47.1 [facility] Comment on above: Performed By: #### C DP, LIP #### [facility] [address] [place] [id number] Jewel Sorter: Zafar Castillo MD Hemoglobin (Bld) [Mass/Vol] 11.9 g/dL Normal 11.9-15.1 [facility] Comment on above: Performed By: #### C DP, LIP #### [facility] [address] [place] [id number] Jewel Sorter: Zafar Castillo MD Immature granulocytes (Bld) [#/Vol] 0 % Normal 0 [facility] Comment on above: Performed By: #### C DP, LIP #### [facility] [address] [place], [id number] Jewel Sorter: Zafar Castillo MD Lymphocytes (Bld) [#/Vol] 1.79 10*3/uL Normal 1.10-3.70 [facility] Comment on above: Performed By: #### C DP, LIP #### [facility] [address] [place] [address] Jewel Sorter: Zafar Castillo MD Lymphocytes/100 WBC (Bld) 22 % Low 24-43 [facility] Comment on above: Performed By: #### C DP, LIP #### [facility] [address] [place] [id number] Jewel Sorter: Zafar Castillo MD MCH (RBC) [Entitic mass] 32.3 pg Normal 25.2-33.5 [facility] Comment on above: Performed By: #### C DP, LIP #### [facility] [address] [place], [id number] Jewel Sorter: Zafar Castillo MD MCHC (RBC) [Mass/Vol] 33.1 g/dL Normal 28.4-34.8 [facility] Comment on above: Performed By: #### C DP, LIP #### [facility] [address] [place], [place] [phone] Jewel Sorter: Zafar Castillo MD MCV (RBC) [Entitic vol] 97.6 fL Normal 82.6-102.9 [facility] Comment on above: Performed By: #### C DP, LIP #### [facility] [address] [place], [place] [id number] Jewel Sorter: Zafar Castillo MD Monocytes (Bld) [#/Vol] 0.75 10*3/uL Normal 0.10-1.20 [facility] Comment on above: Performed By: #### C DP, LIP #### [facility] [address] [place], [place] [phone] Jewel Sorter: Zafar Castillo MD Monocytes/100 WBC (Bld) 9 % Normal 3-12 [facility] Comment on above: Performed By: #### C DP, LIP #### [facility] [address] [place] [address] Jewel Sorter: Zafar Castillo MD Neutrophil (Seg) 67 % High 36-65 [facility] Comment on above: Performed By: #### C DP, LIP #### [facility] [address] [place], [place] [address] Jewel Sorter: Zafar Castillo MD NRBC Automated 0.0 per 100 WBC Normal 0.0 [facility] Comment on above: Performed By: #### C DP, LIP #### [facility] [address] [place], [place] [phone] Jewel Sorter: Zafar Castillo MD Platelet mean volume (Bld) [Entitic vol] 10.1 fL Normal 8.1-13.5 [facility] Comment on above: Performed By: #### C DP, LIP #### [facility] [address] [place] [address] Jewel Sorter: Zafar Castillo MD Platelets (Bld) [#/Vol] 176 10*3/uL Normal 138-453 [facility] Comment on above: Performed By: #### C DP, LIP #### [facility] [address] [place], [place] [phone] Jewel Sorter: Zafar Castillo MD RBC (Bld) [#/Vol] 3.68 10*6/uL Low 3.95-5.11 [facility] Comment on above: Performed By: #### C DP, LIP #### [facility] [address] [place], [place] [phone] Jewel Sorter: Zafar Castillo MD WBC (Bld) [#/Vol] 8.3 10*3/uL Normal 3.5-11.3 [facility] Comment on above: Performed By: #### C DP, LIP #### [facility] [address] [place] [address] Jewel Sorter: Zafar Castillo MD Auto Diff Performed NOT REPORTED Normal [facility] Comment on above: Performed By: #### C DP, LIP #### [facility] [address] [place], [place] [phone] Jewel Sorter: Zafar Castillo MD Platelets (Bld) [#/Vol] NOT REPORTED Normal [facility] Comment on above: Performed By: #### C DP, LIP #### [facility] [address] [place] [address] Jewel Sorter: Zafar Castillo MD RBC morphology finding Nom (Bld) NOT REPORTED Normal [facility] Comment on above: Performed By: #### C DP, LIP #### [facility] [address] [place], [place] [phone] Jewel Sorter: Zafar Castillo MD WBC Morphology NOT REPORTED Normal [facility] Comment on above: Performed By: #### C DP, LIP #### [facility] [address] [place] [address] Jewel Sorter: Zafar Castillo MD Lipaseon 08-24-2019 Lipase [Catalytic activity/Vol] 69 U/L High 13-60 [facility] Comment on above: Performed By: #### C DP, LIP #### [facility] [address] [place] [address] Jewel Sorter: Zafar Castillo MD Interpretation and review of laboratory results Abnormal [place] Lipase [Catalytic activity/Vol] 69 U/L High 13 - 60 U/L [place] CBC auto differentialon 08-07 Basophils (Bld) [#/Vol] 0.05 10*3/uL [place] Basophils/100 WBC (Bld) 1 % 0 - 2 % [place] Differential Type NOT REPORTED [place] Eosinophils (Bld) [#/Vol] 0.13 10*3/uL [place] Eosinophils/100 WBC (Bld) 2 % 1 - 4 % [place] Erythrocyte distribution width (RBC) [Ratio] 13.2 % 11.8 - 14.4 % [place] Hematocrit (Bld) [Volume fraction] 36.7 % 36.3 - 47.1 % [place] Hemoglobin (Bld) [Mass/Vol] 11.8 g/dL Low 11.9 - 15.1 g/dL [place] Immature granulocytes (Bld) [#/Vol] 0 % 0 [place] Immature granulocytes (Bld) [#/Vol] 10*3/uL [place] Interpretation and review of laboratory results Abnormal [place] Lymphocytes (Bld) [#/Vol] 2.39 10*3/uL [place] Lymphocytes/100 WBC (Bld) 28 % 24 - 43 % [place] MCH (RBC) [Entitic mass] 32.1 pg 25.2 - 33.5 pg [place] MCHC (RBC) [Mass/Vol] 32.2 g/dL 28.4 - 34.8 g/dL [place] MCV (RBC) [Entitic vol] 99.7 fL 82.6 - 102.9 fL [place] Monocytes (Bld) [#/Vol] 0.77 10*3/uL [place] Monocytes/100 WBC (Bld) 9 % 3 - 12 % [place] Platelet mean volume (Bld) [Entitic vol] 10.1 fL 8.1 - 13.5 fL [place] Platelets (Bld) [#/Vol] 174 10*3/uL [place] Platelets (Bld) [#/Vol] NOT REPORTED [place] RBC (Bld) [#/Vol] 3.68 10*6/uL Low 3.95 - 5.1 1 m/uL [place] RBC morphology finding Nom (Bld) NOT REPORTED [place] Segmented neutrophils/100 WBC (Bld) 60 % 36 - 65 % [place] Segs Absolute 5.22 [place] WBC (Bld) [#/Vol] 0.0 10*3/uL 0.0 per 10 0 WBC [place] WBC (Bld) [#/Vol] 8.6 10*3/uL [place] WBC Morphology NOT REPORTED [place] CBC with Diffon 08-23-2019 Abs. Basophil 0.05 k/uL Normal 0.00-0.20 [facility] Comment on above: Performed By: #### C DP, LIP #### [facility] [address] [place] [address] Jewel Sorter: Zafar Castillo MD Abs.Imm.Granulocyte <0.03 Normal 0.00-0.30 [facility] Comment on above: Performed By: #### C DP, LIP #### [facility] [address] [place] [address] Jewel Sorter: Zafar Castillo MD Abs.Neutrophil (Seg) 5.22 k/uL Normal 1.50-8.10 [facility] Comment on above: Performed By: #### C DP, LIP #### [facility] [address] [place], [place] [address] Jewel Sorter: Zafar Castillo MD Basophils/100 WBC (Bld) 1 % Normal 0-2 [facility] Comment on above: Performed By: #### C DP, LIP #### [facility] [address] [place], [place] [address] Jewel Sorter: Zafar Castillo MD Eosinophils (Bld) [#/Vol] 0.13 10*3/uL Normal 0.00-0.44 [facility] Comment on above: Performed By: #### C DP, LIP #### [address] [place] [address] Jewel Sorter: Zafar Castillo MD Eosinophils/100 WBC (Bld) 2 % Normal 1-4 [facility] Comment on above: Performed By: #### C DP, LIP #### [address] [place], [place] [address] Jewel Sorter: Zafar Castillo MD Erythrocyte distribution width (RBC) [Ratio] 13.2 % Normal 11.8-14.4 [facility] Comment on above: Performed By: #### C DP, LIP #### [address] [place], [place] [address] Jewel Sorter: Zafar Castillo MD Hematocrit (Bld) [Volume fraction] 36.7 % Normal 36.3-47.1 [facility] Comment on above: Performed By: #### C DP, LIP #### [address] [place], [id number] Jewel Sorter: Zafar Castillo MD Hemoglobin (Bld) [Mass/Vol] 11.8 g/dL Low 11.9-15.1 [facility] Comment on above: Performed By: #### C DP, LIP #### [facility] [address] [place], [place] [phone] Jewel Sorter: Zafar Castillo MD Immature granulocytes (Bld) [#/Vol] 0 % Normal 0 [facility] Comment on above: Performed By: #### C DP, LIP #### [facility] [address] [place] [id number] Jewel Sorter: Zafar Castillo MD Lymphocytes (Bld) [#/Vol] 2.39 10*3/uL Normal 1.10-3.70 [facility] Comment on above: Performed By: #### C DP, LIP #### [facility] [address] [place], [id number] Jewel Sorter: Zafar Castillo MD Lymphocytes/100 WBC (Bld) 28 % Normal 24-43 [facility] Comment on above: Performed By: #### C DP, LIP #### [facility] [address] [place], [id number] Jewel Sorter: Zafar Castillo MD MCH (RBC) [Entitic mass] 32.1 pg Normal 25.2-33.5 [facility] Comment on above: Performed By: #### C DP, LIP #### [address] [place] [phone] Jewel Sorter: Zafar Castillo MD MCHC (RBC) [Mass/Vol] 32.2 g/dL Normal 28.4-34.8 [facility] Comment on above: Performed By: #### C DP, LIP #### [facility] [address] [place] [address] Jewel Sorter: Zafar Castillo MD MCV (RBC) [Entitic vol] 99.7 fL Normal 82.6-102.9 [facility] Comment on above: Performed By: #### C DP, LIP #### [facility] [address] [place], [id number] Jewel Sorter: Zafar Castillo MD Monocytes (Bld) [#/Vol] 0.77 10*3/uL Normal 0.10-1.20 [facility] Comment on above: Performed By: #### C DP, LIP #### [facility] [address] [place] [address] Jewel Sorter: Zafar Castillo MD Monocytes/100 WBC (Bld) 9 % Normal 3-12 [facility] Comment on above: Performed By: #### C DP, LIP #### [facility] [address] [place], [place] [phone] Jewel Sorter: Zafar Castillo MD Neutrophil (Seg) 60 % Normal 36-65 [facility] Comment on above: Performed By: #### C DP, LIP #### [facility] [address] [place] [address] Jewel Sorter: Zafar Castillo MD NRBC Automated 0.0 per 100 WBC Normal 0.0 [facility] Comment on above: Performed By: #### C DP, LIP #### [facility] [address] [place], [place] [phone] Jewel Sorter: Zafar Castillo MD Platelet mean volume (Bld) [Entitic vol] 10.1 fL Normal 8.1-13.5 [facility] Comment on above: Performed By: #### C DP, LIP #### [facility] [address] [place], [place] [phone] Jewel Sorter: Zafar Castillo MD Platelets (Bld) [#/Vol] 174 10*3/uL Normal 138-453 [facility] Comment on above: Performed By: #### C DP, LIP #### [facility] [address] [place] [address] Jewel Sorter: Zafar Castillo MD RBC (Bld) [#/Vol] 3.68 10*6/uL Low 3.95-5.11 [facility] Comment on above: Performed By: #### C DP, LIP #### [facility] [address] [place], [place] [phone] Jewel Sorter: Zafar Castillo MD WBC (Bld) [#/Vol] 8.6 10*3/uL Normal 3.5-11.3 [facility] Comment on above: Performed By: #### C DP, LIP #### [facility] [address] [place], [place] [phone] Jewel Sorter: Zafar Castillo MD Auto Diff Performed NOT REPORTED Normal [facility] Comment on above: Performed By: #### C DP, LIP #### [facility] [address] [place], [place] [phone] Jewel Sorter: Zafar Castillo MD Platelets (Bld) [#/Vol] NOT REPORTED Normal [facility] Comment on above: Performed By: #### C DP, LIP #### [facility] [address] [place], [place] [phone] Jewel Sorter: Zafar Castillo MD RBC morphology finding Nom (Bld) NOT REPORTED Normal [facility] Comment on above: Performed By: #### C DP, LIP #### [facility] [address] [place], [place] [phone] Jewel Sorter: Zafar Castillo MD WBC Morphology NOT REPORTED Normal [facility] Comment on above: Performed By: #### C DP, LIP #### [facility] [address] [place], [place] [phone] Jewel Sorter: Zafar Castillo MD Comp Metabolic Profon 2019 (cont.) Normal [facility] Comment on above: Result Comment: Aver age GFR for 50-59 years old: 93 mL/min/1.73sq m Chronic Kidney Disease: <60 mL/min/1.73sq m Kidney failure: <15 mL/min/1.73sq m eGFR calculated using average adult body mass. Additional eGFR calculator available at: http://www.globalrp.com/multiple_crcl_2011.htm Performed By: #### C DP, LIP #### [facility] [address] [place], [place] [phone] Jewel Sorter: Zafar Castillo MD Albumin [Mass/Vol] 3.4 g/dL Low 3.5-5.2 [facility] Comment on above: Performed By: #### C DP, LIP #### [facility] [address] [place], [place] [phone] Jewel Sorter: Zafar Castillo MD Albumin/Globulin [Mass ratio] 1.7 {ratio} Normal 1.0-2.5 [facility] Comment on above: Performed By: #### C DP, LIP #### [facility] [address] [place], [place] [phone] Jewel Sorter: Zafar Castillo MD Alkaline Phos 102 U/L Normal 35-104 [facility] Comment on above: Performed By: #### C DP, LIP #### [facility] [address] [place], [place] [phone] Jewel Sorter: Zafar Castillo MD ALT [Catalytic activity/Vol] 34 U/L High 5-33 [facility] Comment on above: Performed By: #### C DP, LIP #### [facility] [address] [place] [address] Jewel Sorter: Zafar Castillo MD Anion gap [Moles/Vol] 7 mmol/L Low 9-17 [facility] Comment on above: Performed By: #### C DP, LIP #### [facility] [address] [place] [address] Jewel Sorter: Zafar Castillo MD AST [Catalytic activity/Vol] 95 U/L High <32 [facility] Comment on above: Performed By: #### C DP, LIP #### [facility] [address] [place], [place] [address]35[address]83 Jewel Sorter: Zafar Castillo MD Bilirubin Ql (U) 0.46 mg/dL Normal 0.3-1.2 [facility] Comment on above: Performed By: #### C DP, LIP #### [facility] [address] [place] [address] Jewel Sorter: Zafar Castillo MD BUN/CRE Ratio 11 Normal 9-20 [facility] Comment on above: Performed By: #### C DP, LIP #### [facility] [address] [place] [address] Jewel Sorter: Zafar Castillo MD Calcium [Mass/Vol] 8.4 mg/dL Low 8.6-10.4 [facility] Comment on above: Performed By: #### C DP, LIP #### [facility] [address] [place] [address] Jewel Sorter: Zafar Castillo MD Chloride [Moles/Vol] 109 mmol/L High 98-107 [facility] Comment on above: Performed By: #### C DP, LIP #### [facility] [address] [place], [place] [phone] Jewel Sorter: Zafar Castillo MD CO2 [Moles/Vol] 22 mmol/L Normal 20-31 [facility] Comment on above: Performed By: #### C DP, LIP #### [facility] [address] [place] [address] Jewel Sorter: Zafar Castillo MD Creatinine [Mass/Vol] 0.66 mg/dL Normal 0.50-0.90 [facility] Comment on above: Performed By: #### C DP, LIP #### [facility] [address] [place] [address] Jewel Sorter: Zafar Castillo MD GFR, Amer >60 Normal >60 [facility] Comment on above: Performed By: #### C DP, LIP #### [facility] [address] [place], [place] [phone] Jewel Sorter: Zafar Castillo MD GFR,non Amer >60 Normal >60 [facility] Comment on above: Performed By: #### C DP, LIP #### [facility] [address] [place], [place] [phone] Jewel Sorter: Zafar Castillo MD Glucose [Mass/Vol] 89 mg/dL Normal 70-99 [facility] Comment on above: Performed By: #### C DP, LIP #### [facility] [address] [place], [place] [phone] Jewel Sorter: Zafar Castillo MD Potassium [Moles/Vol] 4.3 mmol/L Normal 3.7-5.3 [facility] Comment on above: Performed By: #### C DP, LIP #### [facility] [address] [place], [place] [phone] Jewel Sorter: Zafar Castillo MD Protein [Mass/Vol] 5.4 g/dL Low 6.4-8.3 [facility] Comment on above: Performed By: #### C DP, LIP #### [address] [place], [place] [address]66[address]83 Jewel Sorter: Zafar Castillo MD Sodium [Moles/Vol] 138 mmol/L Normal 135-144 [facility] Comment on above: Performed By: #### C DP, LIP #### [facility] [address] [place], [place] [phone] Jewel Sorter: Zafar Castillo MD Staging: Normal [facility] Comment on above: Result Comment: Stag e 1: Some kidney damage normal GFR Stage 2: Mild kidney damage GFR 60-89 Stage 3: Moderate kidney damage GFR 30-59 Stage 4: Severe kidney damage GFR 15-29 Stage 5: Severe kidney damage GFR <15 ESRD - chronic treatment by dialysis or transplant Performed By: #### C DP, LIP #### [facility] [address] [place] [address] Jewel Sorter: Zafar Castillo MD Urea nitrogen [Mass/Vol] 7 mg/dL Normal 6-20 [facility] Comment on above: Performed By: #### C DP, LIP #### [facility] [address] [place] [address] Jewel Sorter: Zafar Castillo MD Comprehensive metabolic pane nimesh 08-23-2019 Albumin [Mass/Vol] 3.4 g/dL Low 3.5 - 5.2 g/dL [place] Albumin/Globulin [Mass ratio] 1.7 {ratio} [place] ALP [Catalytic activity/Vol] 102 U/L 35 - 104 U/L [place] ALT [Catalytic activity/Vol] 34 U/L High 5 - 33 U/L [place] Anion gap [Moles/Vol] 7 mmol/L Low 9 - 17 mmol/L [place] AST [Catalytic activity/Vol] 95 U/L High <32 [place] Bilirubin Ql (U) 0.46 mg/dL 0.3 - 1.2 mg/dL [place] Bun/Cre Ratio 11 [place] Calcium [Mass/Vol] 8.4 mg/dL Low 8.6 - 10. 4 mg/dL [place] Chloride [Moles/Vol] 109 mmol/L High 98 - 10 7 mmol/L [place] CO2 [Moles/Vol] 22 mmol/L 20 - 31 mmol/L [place] Creatinine [Mass/Vol] 0.66 mg/dL 0.5 - 0.9 mg/dL [place] GFR >60 >60 mL/min [place] GFR Non- >60 >60 mL/min [place] Glucose [Mass/Vol] 89 mg/dL 70 - 99 mg/dL [place] Potassium [Moles/Vol] 4.3 mmol/L 3.7 - 5.3 mmol/L [place] Protein [Mass/Vol] 5.4 g/dL Low 6.4 - 8.3 g/dL [place] Sodium [Moles/Vol] 138 mmol/L 135 - 144 mmol/L [place] Urea nitrogen [Mass/Vol] 7 mg/dL 6 - 20 mg/dL [place] Lipaseon 08-23-2019 Lipase [Catalytic activity/Vol] 96 U/L High 13-60 [facility] Comment on above: Performed By: #### C DP, LIP #### [facility] [address] [place] [address] Jewel Sorter: Zafar Castillo MD Lipase [Catalytic activity/Vol] 96 U/L High 13 - 60 U/L [place] Metabolic Panelon 08-23-2019 GFR/1.73 sq M predicted among non-blacks MDRD (S/P/Bld) [Vol rate/Area] [place] Comment on above: Stage 1: Some [...] body mass. Additional eGFR calculator available at: http://www.[employer]/multiple_crcl_2011.htm Otheron 08-23-2019 Interpretation and review of laboratory results Abnormal [place] CBC Auto Differentialon 08-07 Basophils (Bld) [#/Vol] 0.06 10*3/uL [place] Basophils/100 WBC (Bld) 1 % 0 - 2 % [place] Differential Type NOT REPORTED [place] Eosinophils (Bld) [#/Vol] 0.11 10*3/uL [place] Eosinophils/100 WBC (Bld) 1 % 1 - 4 % [place] Erythrocyte distribution width (RBC) [Ratio] 13.2 % 11.8 - 14.4 % [place] Hematocrit (Bld) [Volume fraction] 41.8 % 36.3 - 47.1 % [place] Hemoglobin (Bld) [Mass/Vol] 13.7 g/dL 11.9 - 15.1 g/dL [place] Immature granulocytes (Bld) [#/Vol] 0.03 10*3/uL [place] Immature granulocytes (Bld) [#/Vol] 0 % 0 [place] Interpretation and review of laboratory results Abnormal [place] Lymphocytes (Bld) [#/Vol] 2.23 10*3/uL [place] Lymphocytes/100 WBC (Bld) 24 % 24 - 43 % [place] MCH (RBC) [Entitic mass] 32.6 pg 25.2 - 33.5 pg [place] MCHC (RBC) [Mass/Vol] 32.8 g/dL 28.4 - 34.8 g/dL [place] MCV (RBC) [Entitic vol] 99.5 fL 82.6 - 102.9 fL [place] Monocytes (Bld) [#/Vol] 0.72 10*3/uL [place] Monocytes/100 WBC (Bld) 8 % 3 - 12 % [place] Platelet mean volume (Bld) [Entitic vol] 10.0 fL 8.1 - 13.5 fL [place] Platelets (Bld) [#/Vol] NOT REPORTED [place] Platelets (Bld) [#/Vol] 213 10*3/uL [place] RBC (Bld) [#/Vol] 4.20 10*6/uL 3.95 - 5.1 1 m/uL [place] RBC morphology finding Nom (Bld) NOT REPORTED [place] Segmented neutrophils/100 WBC (Bld) 66 % High 36 - 65 % [place] Segs Absolute 6.22 [place] WBC (Bld) [#/Vol] 0.0 10*3/uL 0.0 per 10 0 WBC [place] WBC (Bld) [#/Vol] 9.4 10*3/uL [place] WBC Morphology NOT REPORTED [place] CBC with Diffon 08-22-2019 Abs. Basophil 0.06 k/uL Normal 0.00-0.20 [facility] Comment on above: Performed By: #### C P, CDP, LIP #### [facility] [address] [place] [address] Jewel Sorter: Zafar Castillo MD Abs.Imm.Granulocyte 0.03 k/uL Normal 0.00-0.30 [facility] Comment on above: Performed By: #### C P, CDP, LIP #### [address] [place] [address] Jewel Sorter: Zafar Castillo MD Abs.Neutrophil (Seg) 6.22 k/uL Normal 1.50-8.10 [facility] Comment on above: Performed By: #### C P, CDP, LIP #### [address] [place] [address] Jewel Sorter: Zafar Castillo MD Basophils/100 WBC (Bld) 1 % Normal 0-2 [facility] Comment on above: Performed By: #### C P, CDP, LIP #### [address] [place] [address] Jewel Sorter: Zafar Castillo MD Eosinophils (Bld) [#/Vol] 0.11 10*3/uL Normal 0.00-0.44 [facility] Comment on above: Performed By: #### C P, CDP, LIP #### [address] [place] [id number] Jewel Sorter: Zafar Castillo MD Eosinophils/100 WBC (Bld) 1 % Normal 1-4 [facility] Comment on above: Performed By: #### C P, CDP, LIP #### [facility] [address] [place], [id number] Jewel Sorter: Zafar Castillo MD Erythrocyte distribution width (RBC) [Ratio] 13.2 % Normal 11.8-14.4 [facility] Comment on above: Performed By: #### C P, CDP, LIP #### [facility] [address] [place], [place] [address] Jewel Sorter: Zafar Castillo MD Hematocrit (Bld) [Volume fraction] 41.8 % Normal 36.3-47.1 [facility] Comment on above: Performed By: #### C P, CDP, LIP #### [address] [place] [address] Jewel Sorter: Zafar Castillo MD Hemoglobin (Bld) [Mass/Vol] 13.7 g/dL Normal 11.9-15.1 [facility] Comment on above: Performed By: #### C P, CDP, LIP #### [address] [place] [address] Jewel Sorter: Zafar Castillo MD Immature granulocytes (Bld) [#/Vol] 0 % Normal 0 [facility] Comment on above: Performed By: #### C P, CDP, LIP #### [address] [place] [id number] Jewel Sorter: Zafar Castillo MD Lymphocytes (Bld) [#/Vol] 2.23 10*3/uL Normal 1.10-3.70 [facility] Comment on above: Performed By: #### C P, CDP, LIP #### [facility] [address] [place] [id number] Jewel Sorter: Zafar Castillo MD Lymphocytes/100 WBC (Bld) 24 % Normal 24-43 [facility] Comment on above: Performed By: #### C P, CDP, LIP #### [address] [place] [address] Jewel Sorter: Zafar Castillo MD MCH (RBC) [Entitic mass] 32.6 pg Normal 25.2-33.5 [facility] Comment on above: Performed By: #### C P, CDP, LIP #### [facility] [address] [place] [id number] Jewel Sorter: Zafar Castillo MD MCHC (RBC) [Mass/Vol] 32.8 g/dL Normal 28.4-34.8 [facility] Comment on above: Performed By: #### C P, CDP, LIP #### [facility] [address] [place] [address] Jewel Sorter: Zafar Castillo MD MCV (RBC) [Entitic vol] 99.5 fL Normal 82.6-102.9 [facility] Comment on above: Performed By: #### C P, CDP, LIP #### [facility] [address] [place] [id number] Jewel Sorter: Zafar Castillo MD Monocytes (Bld) [#/Vol] 0.72 10*3/uL Normal 0.10-1.20 [facility] Comment on above: Performed By: #### C P, CDP, LIP #### [facility] [address] [place] [address] Jewel Sorter: Zafar Castillo MD Monocytes/100 WBC (Bld) 8 % Normal 3-12 [facility] Comment on above: Performed By: #### C P, CDP, LIP #### [facility] [address] [place], [id number] Jewel Sorter: Zafar Castillo MD Neutrophil (Seg) 66 % High 36-65 [facility] Comment on above: Performed By: #### C P, CDP, LIP #### [facility] [address] [place] [id number] Jewel Sorter: Zafar Castillo MD NRBC Automated 0.0 per 100 WBC Normal 0.0 [facility] Comment on above: Performed By: #### C P, CDP, LIP #### [facility] [address] [place], [place] [address] Jewel Sorter: Zafar Castillo MD Platelet mean volume (Bld) [Entitic vol] 10.0 fL Normal 8.1-13.5 [facility] Comment on above: Performed By: #### C P, CDP, LIP #### [facility] [address] [place], [id number] Jewel Sorter: Zafar Castillo MD Platelets (Bld) [#/Vol] 213 10*3/uL Normal 138-453 [facility] Comment on above: Performed By: #### C P, CDP, LIP #### [address] [place], [id number] Jewel Sorter: Zafar Castillo MD RBC (Bld) [#/Vol] 4.20 10*6/uL Normal 3.95-5.11 [facility] Comment on above: Performed By: #### C P, CDP, LIP #### [address] [place], [id number] Jewel Sorter: Zafar Castillo MD WBC (Bld) [#/Vol] 9.4 10*3/uL Normal 3.5-11.3 [facility] Comment on above: Performed By: #### C P, CDP, LIP #### [facility] [address] [place], [place] [id number] Jewel Sorter: Zafar Castillo MD Auto Diff Performed NOT REPORTED Normal [facility] Comment on above: Performed By: #### C P, CDP, LIP #### [facility] [address] [place], [place] [phone] Jewel Sorter: Zafar Castillo MD Platelets (Bld) [#/Vol] NOT REPORTED Normal [facility] Comment on above: Performed By: #### C P, CDP, LIP #### [facility] [address] [place], [place] [phone] Jewel Sorter: Zafar Castillo MD RBC morphology finding Nom (Bld) NOT REPORTED Normal [facility] Comment on above: Performed By: #### C P, CDP, LIP #### [facility] [address] [place], [place] [phone] Jewel Sorter: Zafar Castillo MD WBC Morphology NOT REPORTED Normal [facility] Comment on above: Performed By: #### C P, CDP, LIP #### [facility] [address] [place] [address] Jewel Sorter: Zafar Castillo MD Comp Metabolic Profon 2019 Bilirubin Ql (U) <0.10 Low 0.3-1.2 [facility] Comment on above: Performed By: #### C DP, LIP #### [facility] [address] [place], [id number] Jewel Sorter: Zafar Castillo MD (cont.) Normal [facility] Comment on above: Result Comment: Aver age GFR for 50-59 years old: 93 mL/min/1.73sq m Chronic Kidney Disease: <60 mL/min/1.73sq m Kidney failure: <15 mL/min/1.73sq m eGFR calculated using average adult body mass. Additional eGFR calculator available at: http://www.[employer]/multiple_crcl_2012.htm Performed By: #### C DP, LIP #### [facility] [address] [place], [place] [phone] Jewel Sorter: Zafar Castillo MD Albumin [Mass/Vol] 4.1 g/dL Normal 3.5-5.2 [facility] Comment on above: Performed By: #### C DP, LIP #### [facility] [address] [place] [address] Jewel Sorter: Zafar Castillo MD Albumin/Globulin [Mass ratio] 1.6 {ratio} Normal 1.0-2.5 [facility] Comment on above: Performed By: #### C DP, LIP #### [facility] [address] [place], [place] [phone] Jewel Sorter: Zafar Castillo MD Alkaline Phos 109 U/L High 35-104 [facility] Comment on above: Performed By: #### C DP, LIP #### [facility] [address] [place], [place] [phone] Jewel Sorter: Zafar Castillo MD ALT [Catalytic activity/Vol] 13 U/L Normal 5-33 [facility] Comment on above: Performed By: #### C DP, LIP #### [facility] [address] [place], [place] [phone] Jewel Sorter: Zafar Castillo MD Anion gap [Moles/Vol] 9 mmol/L Normal 9-17 [facility] Comment on above: Performed By: #### C DP, LIP #### [facility] [address] [place] [address] Jewel Sorter: Zafar Castillo MD AST [Catalytic activity/Vol] 22 U/L Normal <32 [facility] Comment on above: Performed By: #### C DP, LIP #### [facility] [address] [place], [place] [phone] Jewel Sorter: Zafar Castillo MD BUN/CRE Ratio 13 Normal 9-20 [facility] Comment on above: Performed By: #### C DP, LIP #### [facility] [address] [place], [place] [phone] Jewel Sorter: Zafar Castillo MD Calcium [Mass/Vol] 9.2 mg/dL Normal 8.6-10.4 [facility] Comment on above: Performed By: #### C DP, LIP #### [facility] [address] [place] [address] Jewel Sorter: Zafar Castillo MD Chloride [Moles/Vol] 103 mmol/L Normal 98-107 [facility] Comment on above: Performed By: #### C DP, LIP #### [facility] [address] [place] [address] Jewel Sorter: Zafar Castillo MD CO2 [Moles/Vol] 24 mmol/L Normal 20-31 [facility] Comment on above: Performed By: #### C DP, LIP #### [facility] [address] [place] [address] Jewel Sorter: Zafar Castillo MD Creatinine [Mass/Vol] 0.63 mg/dL Normal 0.50-0.90 [facility] Comment on above: Performed By: #### C DP, LIP #### [facility] [address] [place] [address] Jewel Sorter: Zafar Castillo MD GFR, Amer >60 Normal >60 [facility] Comment on above: Performed By: #### C DP, LIP #### [facility] [address] [place] [address] Jewel Sorter: Zafar Castillo MD GFR,non Amer >60 Normal >60 [facility] Comment on above: Performed By: #### C DP, LIP #### [facility] [address] [place] [address] Jewel Sorter: Zafar Castillo MD Glucose [Mass/Vol] 92 mg/dL Normal 70-99 [facility] Comment on above: Performed By: #### C DP, LIP #### [facility] [address] [place] [address] Jewel Sorter: Zafar Castillo MD Potassium [Moles/Vol] 3.8 mmol/L Normal 3.7-5.3 [facility] Comment on above: Performed By: #### C DP, LIP #### [facility] [address] [place] [phone] Jewel Sorter: Zafar Castillo MD Protein [Mass/Vol] 6.7 g/dL Normal 6.4-8.3 [facility] Comment on above: Performed By: #### C DP, LIP #### [facility] [address] [place] [phone] Jewel Sorter: Zafar Castillo MD Sodium [Moles/Vol] 136 mmol/L Normal 135-144 [facility] Comment on above: Performed By: #### C DP, LIP #### [facility] [address] [place] [address] Jewel Sorter: Zafar Castillo MD Staging: Normal [facility] Comment on above: Result Comment: Stag e 1: Some kidney damage normal GFR Stage 2: Mild kidney damage GFR 60-89 Stage 3: Moderate kidney damage GFR 30-59 Stage 4: Severe kidney damage GFR 15-29 Stage 5: Severe kidney damage GFR <15 ESRD - chronic treatment by dialysis or transplant Performed By: #### C DP, LIP #### [address] [place] [address] Jewel Sorter: Zafar Castillo MD Urea nitrogen [Mass/Vol] 8 mg/dL Normal 6-20 [facility] Comment on above: Performed By: #### C DP, LIP #### [address] [place] [address] Jewel Sorter: Zafar Castillo MD [facility] Metabolic [facility] 08-22-2019 Albumin [Mass/Vol] 4.1 g/dL 3.5 - 5.2 g/dL [place], [place] Albumin/Globulin [Mass ratio] 1.6 {ratio} [place] ALP [Catalytic activity/Vol] 109 U/L High 35 - 104 U/L [place] ALT [Catalytic activity/Vol] 13 U/L 5 - 33 U/L [place] Anion gap [Moles/Vol] 9 mmol/L 9 - 17 mmol/L [place] AST [Catalytic activity/Vol] 22 U/L <32 [place] Bilirubin Ql (U) <0.10 Low 0.3 - 1.2 mg/dL [place] Bun/Cre Ratio 13 [place] Calcium [Mass/Vol] 9.2 mg/dL 8.6 - 10. 4 mg/dL [place] Chloride [Moles/Vol] 103 mmol/L 98 - 10 7 mmol/L [place] CO2 [Moles/Vol] 24 mmol/L 20 - 31 mmol/L [place] Creatinine [Mass/Vol] 0.63 mg/dL 0.5 - 0.9 mg/dL [place] GFR >60 >60 mL/min [place] GFR Non- >60 >60 mL/min [place] Glucose [Mass/Vol] 92 mg/dL 70 - 99 mg/dL [place] Interpretation and review of laboratory results Abnormal [place] Potassium [Moles/Vol] 3.8 mmol/L 3.7 - 5.3 mmol/L [place] Protein [Mass/Vol] 6.7 g/dL 6.4 - 8.3 g/dL [place] Sodium [Moles/Vol] 136 mmol/L 135 - 144 mmol/L [place] Urea nitrogen [Mass/Vol] 8 mg/dL 6 - 20 mg/dL [place] Lactic Acidon 08-22-2019 Lactate [Moles/Vol] 1.5 mmol/L Normal 0.5-2.2 [facility] Comment on above: Performed By: #### L ACTIC #### [facility] [address] [place] [address] Jewel Sorter: Zafar Castillo MD Lactate [Moles/Vol] NOT REPORTED Normal 0.7-2.1 [facility] Comment on above: Performed By: #### L ACTIC #### [facility] [address] [place] [address] Jewel Sorter: Zafar Castillo MD Lactic Acid, Plasmaon 2019 Lactate [Moles/Vol] 1.5 mmol/L 0.5 - 2. 2 mmol/L [place] Lactic Acid, Whole Blood NOT REPORTED 0.7 - 2.1 mmol/L [place] Lipaseon 08-22-2019 Lipase [Catalytic activity/Vol] 255 U/L Critically high 13-60 [facility] Comment on above: Performed By: #### C DP, LIP #### [facility] [address] [place] [address] Jewel Sorter: Zafar Castillo MD Interpretation and review of laboratory results Abnormal [place] Lipase [Catalytic activity/Vol] 255 U/L Critically high 13 - 60 U/L [place] Metabolic Panelon 08-22-2019 GFR/1.73 sq M predicted among non-blacks MDRD (S/P/Bld) [Vol rate/Area] [place] Comment on above: Average GFR for 50-5 9 years old: 93 mL/min/1.73sq m Chronic Kidney Disease: <60 mL/min/1.73sq m Kidney failure: <15 mL/min/1.73sq m eGFR calculated using average adult body mass. Additional eGFR calculator available at: http://www.[employer]/multiple_crcl_2012.htm Stage 1: Some kidney damage normal GFR Stage 2: Mild kidney damage GFR 60-89 Stage 3: Moderate kidney damage GFR 30-59 Stage 4: Severe kidney damage GFR 15-29 Stage 5: Severe kidney damage GFR <15 ESRD - chronic treatment by dialysis or transplant Urinalysis w/ Microon 2019 ----- Normal [facility] Comment on above: Performed By: #### C DP, LIP #### [facility] [address] [place] [address] Jewel Sorter: Zafar Castillo MD Acetoacetic Acid,Ur Negative Normal NEG [facility] Comment on above: Performed By: #### C DP, LIP #### [facility] [address] [place], [id number] Jewel Sorter: Zafar Castillo MD Bilirubin, SemiQt,Ur Negative Normal [facility] Comment on above: Performed By: #### C DP, LIP #### [facility] [address] [place], [place] [phone] Jewel Sorter: Zafar Castillo MD Color (U) YELLOW Normal YEL [facility] Comment on above: Performed By: #### C DP, LIP #### [facility] [address] [place], [id number] Jewel Sorter: Zafar Castillo MD Epithelial cells LM.HPF (Urine sed) [#/Area] 2 TO 5 Normal 0-25 [facility] Comment on above: Performed By: #### C DP, LIP #### [facility] [address] [place] [address] Jewel Sorter: Zafar Castillo MD Glucose Ql (U) Negative Normal [facility] Comment on above: Performed By: #### C DP, LIP #### [address] [place] [address] Jewel Sorter: Zafar Castillo MD Hemoglobin, Ur Negative Normal [facility] Comment on above: Performed By: #### C DP, LIP #### [facility] [address] [place], [place] [address] Jewel Sorter: Zafar Castillo MD Leukocyte esterase Test strip Ql (U) Negative Normal [facility] Comment on above: Performed By: #### C DP, LIP #### [facility] [address] [place] [phone] Jewel Sorter: Zafar Castillo MD Nitrite,Ur Negative [facility] Comment on above: Performed By: #### C DP, LIP #### [facility] [address] [place] [phone] Jewel Sorter: Zafar Castillo MD pH (U) 6.0 [pH] Normal 5.0-9.0 [facility] Comment on above: Performed By: #### C DP, LIP #### [facility] [address] [place], [place] [phone] Jewel Sorter: Zafar Castillo MD Protein Ql (U) Negative Normal NEG [facility] Comment on above: Performed By: #### C DP, LIP #### [facility] [address] [place] [address] Jewel Sorter: Zafar Castillo MD RBC (U) [#/Vol] None Normal 0-2 [facility] Comment on above: Performed By: #### C DP, LIP #### [facility] [address] [place], [place] [phone] Jewel Sorter: Zafar Castillo MD Specific gravity (U) [Rel density] <1.005 Low 1.010-1.020 [facility] Comment on above: Performed By: #### C DP, LIP #### [facility] [address] [place], [place] [phone] Jewel Sorter: Zafar Castillo MD Turbidity CLEAR Normal CLEAR [facility] Comment on above: Performed By: #### C DP, LIP #### [facility] [address] [place] [address] Jewel Sorter: Zafar Castillo MD Urobilinogen,Ur Normal Normal NORM [facility] Comment on above: Performed By: #### C DP, LIP #### [facility] [address] [place] [address] Jewel Sorter: Zafar Castillo MD WBC (U) [#/Vol] None Normal 0-5 [facility] Comment on above: Performed By: #### C DP, LIP #### [facility] [address] [place], [place] [phone] Jewel Sorter: Zafar Castillo MD Amorphous sediment LM Ql (Urine sed) NOT REPORTED Normal NONE [facility] Comment on above: Performed By: #### C DP, LIP #### [facility] [address] [place] [address] Jewel Sorter: Zafar Castillo MD Bacteria LM.HPF (Urine sed) [#/Area] NOT REPORTED Normal [facility] Comment on above: Performed By: #### C DP, LIP #### [facility] [address] [place] [address] Jewel Sorter: Zafar Castillo MD Casts LM.LPF (Urine sed) [#/Area] NOT REPORTED Normal [facility] Comment on above: Performed By: #### C DP, LIP #### [facility] [address] [place] [address] Jewel Sorter: Zafar Castillo MD Comment NOT REPORTED Normal [facility] Comment on above: Performed By: #### C DP, LIP #### [facility] [address] [place] [address] Jewel Sorter: Zafar Castillo MD Crystals LM Nom (Urine sed) NOT REPORTED Normal [facility] Comment on above: Performed By: #### C DP, LIP #### [facility] [address] [place] [address] Jewel Sorter: Zafar Castillo MD Epithelial, Renal NOT REPORTED Normal 0 [facility] Comment on above: Performed By: #### C DP, LIP #### [facility] [address] [place] [address] Jewel Sorter: Zafar Castillo MD Mucus Strands NOT REPORTED Normal [facility] Comment on above: Performed By: #### C DP, LIP #### [facility] [address] [place] [address] Jewel Sorter: Zafar Castillo MD Other Observations NOT REPORTED Normal NREQ [facility] Comment on above: Performed By: #### C DP, LIP #### [facility] [address] [place] [address] Jewel Sorter: Zafar Castillo MD Trichomonas NOT REPORTED Normal NONE [facility] Comment on above: Performed By: #### C DP, LIP #### [facility] [address] [place] [address] Jewel Sorter: Zafar Castillo MD Yeast LM Ql (Urine sed) NOT REPORTED Normal [facility] Comment on above: Performed By: #### C DP, LIP #### [facility] [address] [place] [address] Jewel Sorter: Zafar Castillo MD Urinalysis with Microscopico n 08-22-2019 Amorphous, UA NOT REPORTED None [place], [place] Bacteria, UA NOT REPORTED None [place] Bilirubin Urine Negative NEGATIVE [place] Casts UA NOT REPORTED /LPF [place] Color, UA YELLOW YELLOW [place] Crystals, UA NOT REPORTED None /HPF [place] Epithelial Cells UA 2 TO 5 [place] Glucose, Ur Negative NEGATIVE [place] Interpretation and review of laboratory results Abnormal [place] Ketones Ql (U) Negative NEGATIVE [place] Leukocyte esterase Test strip Ql (U) Negative NEGATIVE [place] Mucus, UA NOT REPORTED None [place] Nitrite, Urine Negative NEGATIVE [place] Other Observations UA NOT REPORTED NOT REQ. [place] pH, UA 6.0 [place] Protein (U) [Mass/Vol] Negative NEGATIVE [place] RBC (U) [#/Vol] None [place], [place] Renal Epithelial, UA NOT REPORTED 0 /HPF [place] Specific [place], UA <1.005 Low [place] Trichomonas, UA NOT REPORTED None [facility]- [place], [place] Turbidity UA CLEAR CLEAR [facility], [place] Urinalysis Comments NOT REPORTED [facility]- [place], [place] Urine Hgb Negative NEGATIVE [facility], [place] Urobilinogen, Urine Normal Normal [facility], [place] WBC, UA None [facility] Yeast, UA NOT REPORTED None [facility], [place] - [facility] CBC WITH AUTO DIFFERENTIALon 03-04-2018 Basophils Auto #/vol (Bld) 0.07 10*3/uL Invalid Interpretation Code [facility] Basophils/100 WBC Auto (Bld) 0.7 % Invalid Interpretation Code [facility] Eosinophils Auto #/vol (Bld) 0.09 10*3/uL Invalid Interpretation Code [facility] Eosinophils/100 WBC Auto (Bld) 0.9 % Invalid Interpretation Code [facility] Erythrocyte distribution width Auto Entitic volume (RBC) 12.8 % Invalid Interpretation Code 11.6 - 14.8 % [facility] Hematocrit Auto Volume Fraction (Bld) 45.0 % Invalid Interpretation Code 36 - 46 % [facility] Hemoglobin mass conc (Bld) 15.4 g/dL Invalid Interpretation Code 12 - 16 g/dL [facility] Immature granulocytes #/vol (Bld) 0.03 10*3/uL Invalid Interpretation Code [facility] Immature granulocytes/100 WBC (Bld) 0.30 % Invalid Interpretation Code [facility] Comment on above: The IG parameter is the percentage of metamyelocytes, myelocytes, and promyelocytes. Interpretation and review of laboratory results Abnormal Invalid Interpretation Code [facility] Lymphocytes Auto #/vol (Bld) 2.22 10*3/uL Invalid Interpretation Code [facility] Lymphocytes/100 WBC Auto (Bld) 21.0 % Invalid Interpretation Code [facility] MCH Auto Entitic mass (RBC) 33.6 pg Invalid Interpretation Code 26 - 34 pg [facility] MCHC Auto mass conc (RBC) 34.2 g/dL Invalid Interpretation Code 31 - 37 g/dL [facility] MCV Auto Entitic volume (RBC) 98.0 fL Invalid Interpretation Code 80 - 100 fL [facility] Monocytes Auto #/vol (Bld) 0.82 10*3/uL Invalid Interpretation Code [facility] Monocytes/100 WBC Auto (Bld) 7.8 % Invalid Interpretation Code [facility] Neutrophils Auto #/vol (Bld) 7.33 10*3/uL High [facility] Neutrophils/100 WBC Auto (Bld) 69.3 % Invalid Interpretation Code [facility] Nucleated RBC #/vol (Bld) 0.00 10*3/uL Invalid Interpretation Code [facility] Nucleated RBC/100 WBC Ratio (Bld) 0.0 % Invalid Interpretation Code [facility] Platelet mean volume Auto Entitic volume (Bld) 10.1 fL Invalid Interpretation Code 9 - 15.5 fL [facility] Platelets Auto #/vol (Bld) 254 10*3/uL Invalid Interpretation Code [facility] RBC Auto #/vol (Bld) 4.59 10*6/uL Invalid Interpretation Code [facility] WBC Auto #/vol (Bld) 10.56 10*3/uL Invalid Interpretation Code [facility] Chem 7on 03-04-2018 Anion gap 3 molar conc 15 mmol/L Invalid Interpretation Code 10 - 20 mmol/L [facility] Chloride molar conc 103 mmol/L Invalid Interpretation Code 98 - 108 mmol/L [facility] Creatinine mass conc 0.85 mg/dL Invalid Interpretation Code 0.4 - 1.1 mg/dL [facility] GFR/1.73 sq M predicted among non-blacks MDRD vol rate/area (S/P/Bld) The eGFR should be used for monitoring renal function only and not for medication dosing. Invalid Interpretation Code [facility] GFR/1.73 sq M.predicted CKD-EPI vol rate/area (S/P/Bld) 81 Invalid Interpretation Code >=60 mL/min/1.73 m2 [facility] Glucose mass conc 92 mg/dL Invalid Interpretation Code 65 - 99 mg/dL [facility] HCO3 molar conc 25 mmol/L Invalid Interpretation Code 21 - 32 mmol/L [facility] Potassium molar conc 4.4 mmol/L Invalid Interpretation Code 3.5 - 5.1 mmol/L [facility] Sodium molar conc 139 mmol/L Invalid Interpretation Code 135 - 145 mmol/L [facility] Urea nitrogen mass conc 7 mg/dL Low 8 - 25 mg/dL [facility] Urea nitrogen/Creatinine mass ratio 8.2 mg/mg Low [facility] Hepatic Function Panel (LFT) on 03-04-2018 Albumin mass conc 4.5 g/dL Invalid Interpretation Code 3.2 - 5.2 g/dL [facility] ALP enzyme act/vol 97 U/L Invalid Interpretation Code 40 - 150 U/L [facility] ALT enzyme act/vol 9 U/L Invalid Interpretation Code 0 - 40 U/L [facility] AST enzyme act/vol 15 U/L Invalid Interpretation Code 0 - 45 U/L [facility] Bilirubin mass conc mg/dL Invalid Interpretation Code 0 - 1.3 mg/dL [facility] Bilirubin.conjugated mass conc mg/dL Invalid Interpretation Code 0 - 0.4 mg/dL [facility] Interpretation and review of laboratory results Normal Invalid Interpretation Code [facility] Protein mass conc 7.2 g/dL Invalid Interpretation Code 6 - 8 g/dL [facility] Lipaseon 03-04-2018 Lipase enzyme act/vol 179 U/L High 15 - 65 U/L [facility] Otheron 03-04-2018 Extra Tube Hold for add-ons. Invalid Interpretation Code [facility] Comment on above: Auto resulted. Interpretation and review of laboratory results Abnormal Invalid Interpretation Code [facility] URINALYSISon 03-04-2018 Bacteria Auto Ql (U) Rare Abnormal None Se en /hpf [facility] Bilirubin Ql (U) Negative Invalid Interpretation Code Negative [facility] Clarity Refractometry automated Nom (U) Clear Invalid Interpretation Code Clear [facility] Color Auto Nom (U) Colorless Invalid Interpretation Code Colorless, Yellow [facility] Epithelial cells.squamous Auto #/area (Urine sed) 1 Invalid Interpretation Code [facility] Glucose Automated test strip mass conc (U) Negative Invalid Interpretation Code Negative mg/dL [facility] Hemoglobin Automated test strip Ql (U) Negative Invalid Interpretation Code Negative [facility] Interpretation and review of laboratory results Abnormal Invalid Interpretation Code [facility] Ketones mass conc (U) Negative Invalid Interpretation Code Negative mg/dL [facility] Leukocyte esterase Automated test strip Ql (U) Negative Invalid Interpretation Code Negative [facility] Nitrite Automated test strip Ql (U) Negative Invalid Interpretation Code Negative [facility] pH Test strip (U) 7.0 [pH] Invalid Interpretation Code [facility] Protein mass conc (U) Negative Invalid Interpretation Code Negative mg/dL [facility] RBC Auto #/area (Urine sed) 2 Invalid Interpretation Code [facility] Specific gravity Automated test strip Relative Density (U) 1.004 Low [facility] Urobilinogen Test strip Qn (U) <2.0 Invalid Interpretation Code <2.0 mg/dL [facility] WBC Auto #/area (Urine sed) <1 Invalid Interpretation Code [facility] Microscopic examination is performed on all urinalysis samples and only positive findings are reported. The test for blood on the chemical analytic portion of urinalysis may also be positive due to hemoglobinuria and myoglobinuria and if red blood cells are present they are quantified by microscopic examination. Invalid Interpretation Code [facility] BMPon 08-24-2017 Anion gap 18 mmol/L Invalid Interpretation Code 10 - 20 mmol/L [facility] Bicarbonate (HCO3) 27 mmol/L Invalid Interpretation Code 21 - 32 mmol/L [facility] BUN/Creatinine Ratio 10.1 mg/mg Invalid Interpretation Code 10.0 - 20.0 [facility] Calcium 10.6 mg/dL High 8.4 - 10.2 mg/dL [facility] Chloride 101 mmol/L Invalid Interpretation Code 98 - 108 mmol/L [facility] Creatinine 0.69 mg/dL Invalid Interpretation Code 0.4 - 1.1 mg/dL [facility] eGFR (non-black) 103 mL/min/{1.73_m2} Invalid Interpretation Code >=60 [facility] eGFR (non-black) The eGFR should be used for monitoring renal function only and not for medication dosing. Invalid Interpretation Code [facility] Glucose mass conc 105 mg/dL High 65 - 99 mg/dL [facility] Interpretation and review of laboratory results Abnormal Invalid Interpretation Code [facility] Potassium molar conc 4.1 mmol/L Invalid Interpretation Code 3.5 - 5.1 mmol/L [facility] Sodium 142 mmol/L Invalid Interpretation Code 135 - 145 mmol/L [facility] Urea nitrogen 7 mg/dL Low 8 - 25 mg/dL [facility] CBC Auto Differentialon 08-07 Basophils Auto #/vol (Bld) 0.08 K/mcL Invalid Interpretation Code 0.00 - 0.30 [facility] Basophils/100 WBC Auto (Bld) 0.6 % Invalid Interpretation Code [facility] Eosinophils 0.05 K/mcL Invalid Interpretation Code 0.00 - 0.50 [facility] Eosinophils/100 leukocytes 0.4 % Invalid Interpretation Code [facility] Erythrocyte distribution width Auto Entitic volume (RBC) 12.2 % Invalid Interpretation Code 11.6 - 14.8 % [facility] Erythrocytes (RBC) 4.60 M/mcL Invalid Interpretation Code 4.00 - 5.20 [facility] Hematocrit (HCT) 43.4 % Invalid Interpretation Code 36 - 46 % [facility] Hemoglobin mass conc (Bld) 15.2 g/dL Invalid Interpretation Code 12 - 16 g/dL [facility] Immature granulocytes #/vol (Bld) 0.05 K/mcL Invalid Interpretation Code 0.00 - 0.30 [facility] Immature granulocytes/100 WBC (Bld) 0.40 % Invalid Interpretation Code [facility] Comment on above: The IG parameter is the percentage of metamyelocytes, myelocytes, and promyelocytes. Lymphocytes 2.40 K/mcL Invalid Interpretation Code 0.90 - 4.00 [facility] Lymphocytes/100 leukocytes 18.1 % Invalid Interpretation Code [facility] MCH 33.0 pg Invalid Interpretation Code 26 - 34 pg [facility] MCHC mass conc (RBC) 35.0 g/dL Invalid Interpretation Code 31 - 37 g/dL [facility] MCV 94.3 fL Invalid Interpretation Code 80 - 100 fL [facility] Monocytes 0.85 K/mcL Invalid Interpretation Code 0.30 - 0.90 [facility] Monocytes/100 leukocytes 6.4 % Invalid Interpretation Code [facility] Neutrophils 9.81 K/mcL High 1.70 - 7.00 [facility] Neutrophils/100 WBC Auto (Bld) 74.1 % Invalid Interpretation Code [facility] Nucleated erythrocytes 0.00 K/mcL Invalid Interpretation Code 0.00 - 0.00 [facility] Nucleated erythrocytes/100 erythrocytes 0.0 % Invalid Interpretation Code [facility] Platelet mean volume (PMV) 10.0 fL Invalid Interpretation Code 9 - 15.5 fL [facility] Platelets 242 K/mcL Invalid Interpretation Code 150 - 400 [facility] WBC (Leukocytes) 13.24 K/mcL High 4.50 - 11.00 [facility] CBC w/ Diffon 08-24-2017 Creatinine The following orders were created for panel order CBC w/ Diff. Procedure Abnormality Status --------- ------ CBC Auto Differential[[id number] ] Abnormal Final result Please view results for these tests on the individual orders. Invalid Interpretation [facility] [...] and demonstrated a prominent signal loss on [id number] images on MRI performed 09/06/2014, compatible with [...] ThuAug 24, 2017 4:03:34 PM EDT Normal [facility] Comment on above: Order Comment: Reaso [...] and demonstrated a prominent signal loss on [id number] images on MRI performed 09/06/2014, compatible with [...] probably remain. 5. Small left adrenal adenoma. [employer] Workstation ID: [id number] Invalid Interpretation Code [employer] [facility] CT Abdomen Pelvis With IV Contrast [...] and demonstrated a prominent signal loss on [id number] images on MRI performed 09/06/2014, compatible with [...] suspicious focal osseous lesions. Invalid Interpretation Code [employer] [place] CT Abdomen Pelvis With IV Contrast Only [...] probably remain. 5. Small left adrenal adenoma. [employer] Workstation ID: [id number] Invalid Interpretation Code [employer] [place] Hepatic Function Panel (LFT) on 08-24-2017 Alanine aminotransferase (ALT) 14 U/L Invalid Interpretation Code 0 - 40 U/L [facility] Albumin 4.7 g/dL Invalid Interpretation Code 3.2 - 5.2 g/dL [facility] Alkaline phosphatase (ALP) 91 U/L Invalid Interpretation Code 40 - 150 U/L [facility] Aspartate aminotransferase (AST) 17 U/L Invalid Interpretation Code 0 - 45 U/L [facility] Bilirubin (conjugated) mg/dL Invalid Interpretation Code 0 - 0.4 mg/dL [facility] Bilirubin (total) mg/dL Invalid Interpretation Code 0 - 1.3 mg/dL [facility] Interpretation and review of laboratory results Normal Invalid Interpretation Code [facility] Protein 7.4 g/dL Invalid Interpretation Code 6 - 8 g/dL [facility] Lactic Acid, Plasmaon 2017 Lactate 1.0 mmol/L Invalid Interpretation Code 0.6 - 2 mmol/L [facility] [place] Blue Topon 08-24-2017 Extra Tube Hold for add-ons. Invalid Interpretation Code [facility] Comment on above: Auto resulted. Lipaseon 08-24-2017 Lipase 51 U/L Invalid Interpretation Code 15 - 65 U/L [facility] [place] Topon 08-24-2017 [place] Top Invalid Interpretation Code [facility] [place] Drawon 08-24-2017 Creatinine The following orders were created for panel order [place] Draw. Procedure Abnormality Status --------- ------ Gold Top[[id number]] Final result [place] Top[[id number]] Final result [place] Top[[id number]] Final result Please view results for these tests on the individual orders. Invalid Interpretation Code [facility] Urinalysison 08-24-2017 Bilirubin Ql (U) Negative Invalid Interpretation Code Negative [facility] Blood, Urine Negative Invalid Interpretation Code Negative [facility] Interpretation and review of laboratory results Abnormal Invalid Interpretation Code [facility] Nitrite, Urine Negative Invalid Interpretation Code Negative [facility] Squamous Epithelial 5 /hpf High 0 - 4 [facility] Transitional Epithelial <1 Invalid Interpretation Code 0 - 1 /hpf [facility] Urine, bacteria in sediment Rare Abnormal None Seen /hpf [facility] Urine, clarity Hazy Abnormal Clear [facility] Urine, color Yellow Invalid Interpretation Code Colorless, Yellow [facility] Urine, erythrocytes 1 /hpf Invalid Interpretation Code 0 - 3 [facility] Urine, glucose presence Negative Invalid Interpretation Code Negative mg/dL [facility] Urine, ketones presence Negative Invalid Interpretation Code Negative mg/dL [facility] Urine, leukocyte esterase presence Negative Invalid Interpretation Code Negative [facility] Urine, pH 7.0 [pH] Invalid Interpretation Code 5.0 - 7.0 [facility] Urine, protein Negative Invalid Interpretation Code Negative mg/dL [facility] Urine, specific gravity 1.006 1 Invalid Interpretation Code 1.005 - 1.025 [facility] Urine, urobilinogen <2.0 Invalid Interpretation Code <2.0 mg/dL [facility] WBCs, Urine 1 /hpf Invalid Interpretation Code 0 - 5 [facility] Urinalysis Microscopic examination is performed on all urinalysis samples and only positive findings are reported. The test for blood on the chemical analytic portion of urinalysis may also be positive due to hemoglobinuria and myoglobinuria and if red blood cells are present they are quantified by microscopic examination. Invalid Interpretation Code [facility] BMPon 06-09-2017 Anion gap 18 mmol/L Invalid Interpretation Code 10 - 20 mmol/L [facility] Bicarbonate (HCO3) 21 mmol/L Invalid Interpretation Code 21 - 32 mmol/L [facility] BUN/Creatinine Ratio 11.0 mg/mg Invalid Interpretation Code 10.0 - 20.0 [facility] Calcium 10.2 mg/dL Invalid Interpretation Code 8.4 - 10.2 mg/dL [facility] Chloride 102 mmol/L Invalid Interpretation Code 98 - 108 mmol/L [facility] Creatinine 0.73 mg/dL Invalid Interpretation Code 0.4 - 1.1 mg/dL [facility] eGFR (non-black) The eGFR should be used for monitoring renal function only and not for medication dosing. Invalid Interpretation Code [facility] eGFR (non-black) 98 mL/min/{1.73_m2} Invalid Interpretation Code >=60 [facility] Glucose 80 mg/dL Invalid Interpretation Code 65 - 99 mg/dL [facility] Potassium 4.3 mmol/L Invalid Interpretation Code 3.5 - 5.1 mmol/L [facility] Sodium 137 mmol/L Invalid Interpretation Code 135 - 145 mmol/L [facility] Urea nitrogen 8 mg/dL Invalid Interpretation Code 8 - 25 mg/dL [facility] CBC Auto Differentialon 04-0 Basophils 0.07 K/mcL Invalid Interpretation Code 0.00 - 0.30 [facility] Basophils/100 leukocytes 0.7 % Invalid Interpretation Code [facility] Eosinophils 0.10 K/mcL Invalid Interpretation Code 0.00 - 0.50 [facility] Eosinophils/100 leukocytes 1.0 % Invalid Interpretation Code [facility] Erythrocytes (RBC) 4.75 M/mcL Invalid Interpretation Code 4.00 - 5.20 [facility] Erythrocytes (RBC) 0.00 K/mcL Invalid Interpretation Code 0.00 - 0.00 [facility] Hematocrit (HCT) 46.1 % High 36 - 46 % [facility] Hemoglobin (HGB) 16.1 g/dL High 12 - 16 g/dL [facility] IG Absolute 0.02 K/mcL Invalid Interpretation Code 0.00 - 0.30 [facility] IG Percent 0.20 % Invalid Interpretation Code [facility] Lymphocytes 1.75 K/mcL Invalid Interpretation Code 0.90 - 4.00 [facility] Lymphocytes/100 leukocytes 17.9 % Invalid Interpretation Code [facility] MCH 33.9 pg Invalid Interpretation Code 26 - 34 pg [facility] MCHC 34.9 g/dL Invalid Interpretation Code 31 - 37 g/dL [facility] MCV 97.1 fL Invalid Interpretation Code 80 - 100 fL [facility] Monocytes 0.88 K/mcL Invalid Interpretation Code 0.30 - 0.90 [facility] Monocytes/100 leukocytes 9.0 % Invalid Interpretation Code [facility] Neutrophils 6.98 K/mcL Invalid Interpretation Code 1.70 - 7.00 [facility] Neutrophils/100 leukocytes 71.2 % Invalid Interpretation Code [facility] Nucleated erythrocytes/100 erythrocytes 0.0 % Invalid Interpretation Code [facility] Platelet mean volume (PMV) 10.9 fL Invalid Interpretation Code 9 - 15.5 fL [facility] Platelets 223 K/mcL Invalid Interpretation Code 150 - 400 [facility] RDW-CA 12.8 % Invalid Interpretation Code 11.6 - 14.8 % [facility] WBC (Leukocytes) 9.80 K/mcL Invalid Interpretation Code 4.50 - 11.00 [facility] Interpretation and review of laboratory results Abnormal Invalid Interpretation Code [facility] CBC w/ Diffon 06-09-2017 Creatinine The following orders were created for panel order CBC w/ Diff. Procedure Abnormality Status --------- ------ CBC Auto Differential[[id number] ] Abnormal Final result Please view results for these tests on the individual orders. Invalid Interpretation Code [facility] Hepatic Function Panel (LFT) on 06-09-2017 Alanine aminotransferase (ALT) 10 U/L Invalid Interpretation Code 0 - 40 U/L [facility] Albumin 4.4 g/dL Invalid Interpretation Code 3.2 - 5.2 g/dL [facility] Alkaline phosphatase (ALP) 89 U/L Invalid Interpretation Code 40 - 150 U/L [facility] Aspartate aminotransferase (AST) 20 U/L Invalid Interpretation Code 0 - 45 U/L [facility] Bilirubin (conjugated) mg/dL Invalid Interpretation Code 0 - 0.4 mg/dL [facility] Bilirubin (total) mg/dL Invalid Interpretation Code 0 - 1.3 mg/dL [facility] Interpretation and review of laboratory results Normal Invalid Interpretation Code [facility] Protein 7.3 g/dL Invalid Interpretation Code 6 - 8 g/dL [facility] Lipaseon 06-09-2017 Lipase 50 U/L Invalid Interpretation Code 15 - 65 U/L [facility] [place] Draw[place] 06-09-2017 Creatinine The following orders were created for panel order [place] Draw. Procedure Abnormality Status --------- ------ Urine Container[[id number]] Final result Please view results for these tests on the individual orders. Invalid Interpretation Code [facility] Urinalysison 06-09-2017 Bilirubin, Urine Negative Invalid Interpretation Code Negative [facility] Blood, Urine Negative Invalid Interpretation Code Negative [facility] Calcium Many Abnormal None Seen /hpf [facility] Mucus, Urine Rare Invalid Interpretation Code None Seen, Rare /lpf [facility] Nitrite, Urine Negative Invalid Interpretation Code Negative [facility] RBCs, Urine 1 /hpf Invalid Interpretation Code 0 - 3 [facility] Squamous Epithelial 4 /hpf Invalid Interpretation Code 0 - 4 [facility] Urine, bacteria in sediment None Seen Invalid Interpretation Code None Seen /hpf [facility] Urine, clarity Cloudy Abnormal Clear [facility] Urine, color Yellow Invalid Interpretation Code Colorless, Yellow [facility] Urine, glucose presence Negative Invalid Interpretation Code Negative mg/dL [facility] Urine, ketones presence Trace Abnormal Negative mg/dL [facility] Urine, leukocyte esterase presence Negative Invalid Interpretation Code Negative [facility] Urine, pH 5.0 [pH] Invalid Interpretation Code 5.0 - 7.0 [facility] Urine, protein Negative Invalid Interpretation Code Negative mg/dL [facility] Urine, specific gravity 1.024 1 Invalid Interpretation Code 1.005 - 1.025 [facility] Urine, urobilinogen 2.0 mg/dL Abnormal <2.0 [facility] WBCs, Urine 1 /hpf Invalid Interpretation Code 0 - 5 [facility] Urinalysis Microscopic examination is performed on all urinalysis samples and only positive findings are reported. The test for blood on the chemical analytic portion of urinalysis may also be positive due to hemoglobinuria and myoglobinuria and if red blood cells are present they are quantified by microscopic examination. Invalid Interpretation Code [facility] Urine Containeron 06-09-2017 Urine Container Invalid Interpretation Code [facility] CBCon 05-15-2017 Erythrocytes (RBC) 3.76 M/mcL Low 4.00 - 5.20 [facility] Erythrocytes (RBC) 0.00 K/mcL Invalid Interpretation Code 0.00 - 0.00 [facility] Hematocrit (HCT) 37.1 % Invalid Interpretation Code 36 - 46 % [facility] Hemoglobin (HGB) 12.4 g/dL Invalid Interpretation Code 12 - 16 g/dL [facility] MCH 33.0 pg Invalid Interpretation Code 26 - 34 pg [facility] MCHC 33.4 g/dL Invalid Interpretation Code 31 - 37 g/dL [facility] MCV 98.7 fL Invalid Interpretation Code 80 - 100 fL [facility] [facility] Nucleated erythrocytes/100 erythrocytes 0.0 % Invalid Interpretation Code [facility] Platelet mean volume (PMV) 9.9 fL Invalid Interpretation Code 9 - 15.5 fL [facility] Platelets 197 K/mcL Invalid Interpretation Code 150 - 400 [facility] RDW-CA 12.6 % Invalid Interpretation Code 11.6 - 14.8 % [facility] WBC (Leukocytes) 7.55 K/mcL Invalid Interpretation Code 4.50 - 11.00 [facility] Comprehensive Metabolic Pane nimesh 05-15-2017 Alanine aminotransferase (ALT) 9 U/L Invalid Interpretation Code 0 - 40 U/L [facility] Albumin 3.3 g/dL Invalid Interpretation Code 3.2 - 5.2 g/dL [facility] Alkaline phosphatase (ALP) 73 U/L Invalid Interpretation Code 40 - 150 U/L [facility] Anion gap 15 mmol/L Invalid Interpretation Code 10 - 20 mmol/L [facility] Aspartate aminotransferase (AST) 13 U/L Invalid Interpretation Code 0 - 45 U/L [facility] Bicarbonate (HCO3) 23 mmol/L Invalid Interpretation Code 21 - 32 mmol/L [facility] Bilirubin (total) 0.2 mg/dL Invalid Interpretation Code 0 - 1.3 mg/dL [facility] BUN/Creatinine Ratio 9.4 mg/mg Low 10.0 - 20.0 [facility] Calcium 8.4 mg/dL Invalid Interpretation Code 8.4 - 10.2 mg/dL [facility] Chloride 108 mmol/L Invalid Interpretation Code 98 - 108 mmol/L [facility] Creatinine 0.64 mg/dL Invalid Interpretation Code 0.4 - 1.1 mg/dL [facility] eGFR (non-black) The eGFR should be used for monitoring renal function only and not for medication dosing. Invalid Interpretation Code [facility] eGFR (non-black) 107 mL/min/{1.73_m2} Invalid Interpretation Code >=60 [facility] Glucose 91 mg/dL Invalid Interpretation Code 65 - 99 mg/dL [facility] Potassium 4.0 mmol/L Invalid Interpretation Code 3.5 - 5.1 mmol/L [facility] Protein 5.3 g/dL Low 6 - 8 g/dL [facility] Sodium 142 mmol/L Invalid Interpretation Code 135 - 145 mmol/L [facility] Urea nitrogen 6 mg/dL Low 8 - 25 mg/dL [facility] Lipaseon 05-15-2017 Interpretation and review of laboratory results Normal Invalid Interpretation Code [facility] Lipase 31 U/L Invalid Interpretation Code 15 - 65 U/L [facility] Lipid Panelon 05-15-2017 Cholesterol 193 mg/dL Invalid Interpretation Code 100 - 199 mg/dL [facility] Cholesterol to HDL Ratio 7.1 {ratio} Invalid Interpretation Code [facility] HDL Cholesterol 27 mg/dL Low 40 - 59 mg/dL [facility] HDL Cholesterol 166 mg/dL Invalid Interpretation Code [facility] Interpretation and review of laboratory results Abnormal Invalid Interpretation Code [facility] LDL Cholesterol 108 mg/dL Invalid Interpretation Code 10 - 130 mg/dL [facility] Triglyceride 291 mg/dL High 30 - 150 mg/dL [facility] BMPon 05-14-2017 Anion gap 18 mmol/L Invalid Interpretation Code 10 - 20 mmol/L [facility] Bicarbonate (HCO3) 25 mmol/L Invalid Interpretation Code 21 - 32 mmol/L [facility] BUN/Creatinine Ratio 11.8 mg/mg Invalid Interpretation Code 10.0 - 20.0 [facility] Calcium 10.7 mg/dL High 8.4 - 10.2 mg/dL [facility] Chloride 102 mmol/L Invalid Interpretation Code 98 - 108 mmol/L [facility] Creatinine 0.68 mg/dL Invalid Interpretation Code 0.4 - 1.1 mg/dL [facility] eGFR (non-black) The eGFR should be used for monitoring renal function only and not for medication dosing. Invalid Interpretation Code [facility] eGFR (non-black) 105 mL/min/{1.73_m2} Invalid Interpretation Code >=60 [facility] Glucose 86 mg/dL Invalid Interpretation Code 65 - 99 mg/dL [facility] Potassium 4.0 mmol/L Invalid Interpretation Code 3.5 - 5.1 mmol/L [facility] Sodium 141 mmol/L Invalid Interpretation Code 135 - 145 mmol/L [facility] Urea nitrogen 8 mg/dL Invalid Interpretation Code 8 - 25 mg/dL [facility] CBC Auto Differentialon 03-0 Basophils 0.09 K/mcL Invalid Interpretation Code 0.00 - 0.30 [facility] Basophils/100 leukocytes 0.8 % Invalid Interpretation Code [facility] Eosinophils 0.08 K/mcL Invalid Interpretation Code 0.00 - 0.50 [facility] Eosinophils/100 leukocytes 0.7 % Invalid Interpretation Code [facility] Erythrocytes (RBC) 0.00 K/mcL Invalid Interpretation Code 0.00 - 0.00 [facility] Erythrocytes (RBC) 4.96 M/mcL Invalid Interpretation Code 4.00 - 5.20 [facility] Hematocrit (HCT) 48.5 % High 36 - 46 % [facility] Hemoglobin (HGB) 16.6 g/dL High 12 - 16 g/dL [facility] IG Absolute 0.04 K/mcL Invalid Interpretation Code 0.00 - 0.30 [facility] IG Percent 0.40 % Invalid Interpretation Code [facility] Interpretation and review of laboratory results Abnormal Invalid Interpretation Code [facility] Lymphocytes 1.89 K/mcL Invalid Interpretation Code 0.90 - 4.00 [facility] Lymphocytes/100 leukocytes 17.7 % Invalid Interpretation Code [facility] MCH 33.5 pg Invalid Interpretation Code 26 - 34 pg [facility] MCHC 34.2 g/dL Invalid Interpretation Code 31 - 37 g/dL [facility] MCV 97.8 fL Invalid Interpretation Code 80 - 100 fL [facility] Monocytes 0.74 K/mcL Invalid Interpretation Code 0.30 - 0.90 [facility] Monocytes/100 leukocytes 6.9 % Invalid Interpretation Code [facility] Neutrophils 7.86 K/mcL High 1.70 - 7.00 [facility] Neutrophils/100 leukocytes 73.5 % Invalid Interpretation Code [facility] Nucleated erythrocytes/100 erythrocytes 0.0 % Invalid Interpretation Code [facility] Platelet mean volume (PMV) 9.8 fL Invalid Interpretation Code 9 - 15.5 fL [facility] Platelets 275 K/mcL Invalid Interpretation Code 150 - 400 [facility] RDW-CA 12.8 % Invalid Interpretation Code 11.6 - 14.8 % [facility] WBC (Leukocytes) 10.70 K/mcL Invalid Interpretation Code 4.50 - 11.00 [facility] CBC w/ Diffon 05-14-2017 Creatinine The following orders were created for panel order CBC w/ Diff. Procedure Abnormality Status --------- ------ CBC Auto Differential[[id number] ] Abnormal Final result Please view results for these tests on the individual orders. Invalid Interpretation Code [facility] CT ABDOMEN PELVIS WITH IV CO [...] appendix in the left lower pelvis.Workstation ID: [id number] by: ERROL ANN on ThuMay 14, 2017 4:08:10 PM ESTTranscribed by: ERROL ANN on ThuMay 14, 2017 4:08:10 PM ESTFinalized by: ERROL ANN on ThuMay 14, 2017 4:08:10 PM EST Normal [facility] Comment on above: Order Comment: Reaso [...] at L1-L2 and L4-L5. Invalid Interpretation Code [facility] CT Abdomen Pelvis With IV Contrast Only Interface, Rad In MEDL Mobileq - 05/14/2017 4:10 PM EST EXAMINATION: CT [...] in the left lower pelvis. Workstation ID: [id number] Invalid Interpretation Code [employer] CT Abdomen Pelvis With IV Contrast [...] in the left lower pelvis. Workstation ID: [id number] Invalid Interpretation Code [facility] Ruff Topon 05-14-2017 Extra Tube Hold for add-ons. Invalid Interpretation Code [facility] Hepatic Function Panel (LFT) on 05-14-2017 Alanine aminotransferase (ALT) 13 U/L Invalid Interpretation Code 0 - 40 U/L [facility] Albumin 4.8 g/dL Invalid Interpretation Code 3.2 - 5.2 g/dL [facility] Alkaline phosphatase (ALP) 102 U/L Invalid Interpretation Code 40 - 150 U/L [facility] Aspartate aminotransferase (AST) 20 U/L Invalid Interpretation Code 0 - 45 U/L [facility] Bilirubin (conjugated) mg/dL Invalid Interpretation Code 0 - 0.4 mg/dL [facility] Bilirubin (total) 0.2 mg/dL Invalid Interpretation Code 0 - 1.3 mg/dL [facility] Interpretation and review of laboratory results Normal Invalid Interpretation Code [facility] Protein 7.9 g/dL Invalid Interpretation Code 6 - 8 g/dL [facility] Lipaseon 05-14-2017 Lipase 137 U/L High 15 - 65 U/L [facility] [place] Topon 05-14-2017 [place] Top Invalid Interpretation Code [facility] [place] Draw[place] 05-14-2017 Creatinine The following orders were created for panel order [place] Draw. Procedure Abnormality Status --------- ------ Gold Top[[id number]] Final result Light Blue Top[[id number]] Final result Ruff Top[[id number]] Final result [place] Top[[id number]] Final result Please view results for these tests on the individual orders. Invalid Interpretation Code [facility] Urinalysison 05-14-2017 Bilirubin, Urine Negative Invalid Interpretation Code Negative [facility] Blood, Urine Negative Invalid Interpretation Code Negative [facility] Interpretation and review of laboratory results Abnormal Invalid Interpretation Code [facility] Mucus, Urine Rare Invalid Interpretation Code None Seen, Rare /lpf [facility] Nitrite, Urine Negative Invalid Interpretation Code Negative [facility] RBCs, Urine 2 /hpf Invalid Interpretation Code 0 - 3 [facility] Squamous Epithelial 3 /hpf Invalid Interpretation Code 0 - 4 [facility] Urine, bacteria in sediment Rare Abnormal None Seen /hpf [facility] Urine, clarity Clear Invalid Interpretation Code Clear [facility] Urine, color Yellow Invalid Interpretation Code Colorless, Yellow [facility] Urine, glucose presence Negative Invalid Interpretation Code Negative mg/dL [facility] Urine, ketones presence Negative Invalid Interpretation Code Negative mg/dL [facility] Urine, leukocyte esterase presence Negative Invalid Interpretation Code Negative [facility] Urine, pH 5.0 [pH] Invalid Interpretation Code 5.0 - 7.0 [facility] Urine, protein Negative Invalid Interpretation Code Negative mg/dL [facility] Urine, specific gravity 1.006 1 Invalid Interpretation Code 1.005 - 1.025 [facility] Urine, urobilinogen <2.0 Invalid Interpretation Code <2.0 mg/dL [facility] WBCs, Urine 1 /hpf Invalid Interpretation Code 0 - 5 [facility] Urinalysis Microscopic examination is performed on all urinalysis samples and only positive findings are reported. The test for blood on the chemical analytic portion of urinalysis may also be positive due to hemoglobinuria and myoglobinuria and if red blood cells are present they are quantified by microscopic examination. Invalid Interpretation Code [facility] Vital Signs Date Time Vital Sign Value Performing Clinician Facility 04-02-2023 19:20-0500 Diastolic blood pressure 74 mm[Hg] [facility] 04-02-2023 19:20-0500 Heart rate 91 /min [facility] 04-02-2023 19:20-0500 Respiratory rate 18 /min [facility] 04-02-2023 19:20-0500 SaO2% (BldA) [Mass fraction] 96 % [facility] 04-02-2023 19:20-0500 Systolic blood pressure 137 mm[Hg] [facility] 04-02-2023 13:45-0500 Body height 157.48 cm [facility] 04-02-2023 13:45-0500 Body temperature 97.6 [degF] [facility] 04-02-2023 13:45-0500 Body weight 54 kg [facility] 11-09-2022 16:30-0400 Diastolic blood pressure 81 mm[Hg] [facility] 11-09-2022 16:30-0400 Heart rate 78 /min [facility] 11-09-2022 16:30-0400 Respiratory rate 18 /min [facility] 11-09-2022 16:30-0400 SaO2% (BldA) [Mass fraction] 99 % [facility] 11-09-2022 16:30-0400 Systolic blood pressure 141 mm[Hg] [facility] 11-09-2022 13:47-0400 Body height 160.02 cm [facility] 11-09-2022 13:47-0400 Body temperature 98.2 [degF] [facility] 11-09-2022 13:47-0400 Body weight 54.2 kg [facility] 08-12-2022 13:15-0400 Diastolic blood pressure 68 mm[Hg] Sabrina Dee MD, MPH Work Phone: [facility] 08-12-2022 13:15-0400 Heart rate 67 /min Sabrina Dee MD, MPH Work Phone: [facility] 08-12-2022 13:15-0400 Respiratory rate 22 /min Sabrina Dee MD, MPH Work Phone: [facility] 08-12-2022 13:15-0400 SaO2% (BldA) [Mass fraction] 99 % Sabrina Dee MD, MPH Work Phone: [facility] 08-12-2022 13:15-0400 Systolic blood pressure 142 mm[Hg] Sabrina Dee MD, MPH Work Phone: [facility] 08-12-2022 11:45-0400 Body temperature 97.81 [degF] Sabrina Dee MD, MPH Work Phone: [facility] 08-12-2022 10:34-0400 Body height 157.5 cm Sabrina Dee MD, MPH Work Phone: [facility] 06-16-2022 10:52-0400 Body mass index (BMI) [Ratio] 23.41 kg/m2 Sabrina Dee MD, MPH Work Phone: [facility] 06-16-2022 10:52-0400 Body weight 58.06 kg Sabrina Dee MD, MPH Work Phone: [facility] 06-16-2022 10:52-0400 Diastolic blood pressure 68 mm[Hg] Sabrina Dee MD, MPH Work Phone: [facility] 06-16-2022 10:52-0400 Heart rate 83 /min Sabrina Dee MD, MPH Work Phone: [facility] 06-16-2022 10:52-0400 SaO2% (BldA) [Mass fraction] 98 % Sabrina Dee MD, MPH Work Phone: [facility] 06-16-2022 10:52-0400 Systolic blood pressure 122 mm[Hg] Sabrina Dee MD, MPH Work Phone: [facility] 03-22-2022 16:51-0500 Diastolic blood pressure 61 mm[Hg] [facility] 03-22-2022 16:51-0500 Heart rate 98 /min [facility] 03-22-2022 16:51-0500 Respiratory rate 20 /min [facility] 03-22-2022 16:51-0500 SaO2% (BldA) [Mass fraction] 98 % [facility] 03-22-2022 16:51-0500 Systolic blood pressure 149 mm[Hg] [facility] 03-22-2022 14:59-0500 Body height 157.48 cm [facility] 03-22-2022 14:59-0500 Body temperature 97.9 [degF] [facility] 03-22-2022 14:59-0500 Body weight 56 kg [facility] 12-16-2021 11:53-0400 Body height 157.5 cm Sabrina Dee MD, MPH Work Phone: [facility] 12-16-2021 11:53-0400 Body mass index (BMI) [Ratio] 22.5 kg/m2 Sabrina Dee MD, MPH Work Phone: [facility] 12-16-2021 11:53-0400 Body weight 55.79 kg Sabrina Dee MD, MPH Work Phone: [facility] 12-16-2021 11:53-0400 Diastolic blood pressure 72 mm[Hg] Sabrina Dee MD, MPH Work Phone: [facility] 12-16-2021 11:53-0400 Heart rate 80 /min Sabrina Dee MD, MPH Work Phone: [facility] 12-16-2021 11:53-0400 SaO2% (BldA) [Mass fraction] 98 % Sabrina Dee MD, MPH Work Phone: [facility] 12-16-2021 11:53-0400 Systolic blood pressure 118 mm[Hg] Sabrina Dee MD, MPH Work Phone: [facility] 10-09-2021 20:00-0400 Body temperature 98.3 [degF] [facility] 10-09-2021 20:00-0400 Diastolic blood pressure 68 mm[Hg] [facility] 10-09-2021 20:00-0400 Heart rate 86 /min [facility] 10-09-2021 20:00-0400 Respiratory rate 20 /min [facility] 10-09-2021 20:00-0400 SaO2% (BldA) [Mass fraction] 100 % [facility] 10-09-2021 20:00-0400 Systolic blood pressure 110 mm[Hg] [facility] 10-09-2021 14:19-0400 Body height 157.48 cm [facility] 10-09-2021 14:19-0400 Body weight 56.69 kg [facility] 10-04-2021 19:00-0400 Diastolic blood pressure 66 mm[Hg] [facility] 10-04-2021 19:00-0400 Heart rate 72 /min [facility] 10-04-2021 19:00-0400 Respiratory rate 16 /min [facility] 10-04-2021 19:00-0400 SaO2% (BldA) [Mass fraction] 96 % [facility] 10-04-2021 19:00-0400 Systolic blood pressure 110 mm[Hg] [facility] 10-04-2021 15:16-0400 Body temperature 97.9 [degF] [facility] 10-04-2021 15:15-0400 Body height 157.48 cm [facility] 10-04-2021 15:15-0400 Body weight 54.5 kg [facility] 09-25-2021 19:58-0400 Heart rate 82 /min [facility] 09-25-2021 18:04-0400 Body temperature 98.1 [degF] [facility] 09-25-2021 18:00-0400 Body height 157.48 cm [facility] 09-25-2021 18:00-0400 Body weight 55.5 kg [facility] 09-25-2021 18:00-0400 Diastolic blood pressure 107 mm[Hg] [facility] 09-25-2021 18:00-0400 Respiratory rate 18 /min [facility] 09-25-2021 18:00-0400 SaO2% (BldA) [Mass fraction] 98 % [facility] 09-25-2021 18:00-0400 Systolic blood pressure 141 mm[Hg] [facility] 08-11-2021 18:12-0400 Heart rate 86 /min [facility] 08-11-2021 18:00-0400 Diastolic blood pressure 69 mm[Hg] [facility] 08-11-2021 18:00-0400 Respiratory rate 20 /min [facility] 08-11-2021 18:00-0400 SaO2% (BldA) [Mass fraction] 98 % [facility] 08-11-2021 18:00-0400 Systolic blood pressure 114 mm[Hg] [facility] 08-11-2021 16:06-0400 Body height 170.18 cm [facility] 08-11-2021 16:06-0400 Body mass index (BMI) [Ratio] 19.6 kg/m2 [facility] 08-11-2021 16:06-0400 Body temperature 97.9 [degF] [facility] 08-11-2021 16:06-0400 Body weight 57 kg [facility] 03-19-2021 14:30-0500 Body height 157.48 cm Marya Ginty Other [facility] [employer] Other 03-19-2021 14:30-0500 Body mass index (BMI) [Ratio] 24.69 kg/m2 Marya Ginty Other [facility] [employer] Other 03-19-2021 14:30-0500 Body temperature 96 [degF] Marya Ginty Other [employer] Other 03-19-2021 14:30-0500 Body weight 61.24 kg Marya Ginty Other [employer] Other 03-19-2021 14:30-0500 Respiratory rate 63 /min Marya Almonte Other [employer] Other 03-19-2021 14:30-0500 SaO2% (BldA) [Mass fraction] 97 % Marya Almonte Other [employer] Other 03-26-2020 21:05-0500 Pulse Oximetry 100 % [facility] [place] 03-26-2020 21:01-0500 BP Diastolic 68 mm[Hg] [facility] [place] 03-26-2020 21:01-0500 BP Systolic 152 mm[Hg] [facility] [place] 03-26-2020 17:32-0500 BMI (Body Mass Index) 22.86 kg/m2 [facility], [place] 03-26-2020 17:32-0500 Body weight 56.7 kg [place], [place] 03-26-2020 17:32-0500 Height 157.5 cm [place], [place] 03-26-2020 17:32-0500 Pulse (Heart Rate) 90 /min [facility] [place] 03-26-2020 17:32-0500 Respiratory Rate 18 /min [facility] [place] 03-26-2020 12:39-0500 Body Temperature 98.71 [degF] [facility] 08-25-2019 08:30-0400 Body Temperature 98.01 [degF] [facility] [place] 08-25-2019 08:30-0400 BP Diastolic 75 mm[Hg] Rajeev [facility] [employer] [place] , [place] 08-25-2019 08:30-0400 BP Systolic 117 mm[Hg] [facility]ev [facility] [place] 08-25-2019 08:30-0400 Pulse (Heart Rate) 84 /min Rajeev Alejandrina [facility] [place] 08-25-2019 08:30-0400 Pulse Oximetry 97 % Rajeev [facility] [place] 08-25-2019 08:30-0400 Respiratory Rate 16 /min [facility] [place] 08-25-2019 05:30-0400 BMI (Body Mass Index) 25.88 kg/m2 Rajeev Alejandrina [facility], [place] 08-25-2019 05:30-0400 Body weight 64.18 kg Rajeev [facility] , [place] 08-22-2019 16:00-0400 Height 157.5 cm Rajeev [place], [place] 03-04-2018 13:09-0500 BP Diastolic 69 mm[Hg] [facility] 03-04-2018 13:09-0500 BP Systolic 108 mm[Hg] [facility] 03-04-2018 13:09-0500 Pulse (Heart Rate) 79 /min [facility] 03-04-2018 13:09-0500 Pulse Oximetry 99 % [facility] 03-04-2018 13:09-0500 Respiratory Rate 16 /min [facility] 03-04-2018 11:01-0500 BMI (Body Mass Index) 22.86 kg/m2 [facility] 03-04-2018 11:01-0500 Body Temperature 98.6 [degF] [facility] 03-04-2018 11:01-0500 Height 157.5 cm [facility] 03-04-2018 11:01-0500 Weight 56.7 kg [facility] 08-24-2017 20:58-0400 BP Diastolic 64 mm[Hg] [facility] 08-24-2017 20:58-0400 BP Systolic 126 mm[Hg] Errol [facility] 08-24-2017 20:58-0400 Pulse (Heart Rate) 67 /min [facility] 08-24-2017 20:58-0400 Pulse Oximetry 98 % [facility] 08-24-2017 20:58-0400 Respiratory Rate 18 /min [facility] 08-24-2017 13:41-0400 BMI (Body Mass Index) 21.58 kg/m2 [facility] 08-24-2017 13:41-0400 Body Temperature 98.29 [degF] [facility] 08-24-2017 13:41-0400 Height 157.5 cm [facility] 08-24-2017 13:41-0400 Weight 53.52 kg Errol [facility] 06-09-2017 09:32-0400 BP Diastolic 73 mm[Hg] Joana Vaughn [facility] 06-09-2017 09:32-0400 BP Systolic 106 mm[Hg] Joana Vaughn [facility] 06-09-2017 09:32-0400 Pulse (Heart Rate) 86 /min Joana Vaughn [facility] 06-09-2017 09:32-0400 Pulse Oximetry 99 % Joana Vaughn [facility] 06-09-2017 09:32-0400 Respiratory Rate 16 /min [place] 06-09-2017 07:20-0400 BMI (Body Mass Index) 21.87 kg/m2 Joana [facility] 06-09-2017 07:20-0400 Body Temperature 98.4 [degF] Joana Vaughn [facility] 06-09-2017 07:20-0400 Height 157.5 cm Joana Vaughn [facility] 06-09-2017 07:20-0400 Weight 54.23 kg Joana Vaughn [facility] 05-15-2017 08:11-0500 Body Temperature 98.01 [degF] David Gibson [facility] 05-15-2017 08:11-0500 BP Diastolic 69 mm[Hg] David Gibson [facility] 05-15-2017 08:11-0500 BP Systolic 116 mm[Hg] David Paige [facility] 05-15-2017 08:11-0500 Pulse (Heart Rate) 76 /min David Paige [facility] 05-15-2017 08:11-0500 Pulse Oximetry 95 % David Gibson [facility] 05-15-2017 08:11-0500 Respiratory Rate 15 /min David Gisbon [facility] 05-14-2017 12:58-0500 BMI (Body Mass Index) 21.95 kg/m2 David Gibson [facility] 05-14-2017 12:58-0500 Height 157.5 cm David Paige [facility] 05-14-2017 12:58-0500 Weight 54.43 kg David Gibson [facility] Encounters Encounter Date Encounter Type Care Provider Facility Start: 04-02-2023 End: 04-02-2023 Emergency department patient visit [facility] Work Phone: Start: 03-27-2023 End: 03-28-2023 Emergency department patient visit VIC B[facility] Start: 03-27-2023 End: 03-27-2023 Emergency department patient visit [facility] Start: 11-09-2022 End: 11-09-2022 Emergency department patient visit Nicole Posadas Facility:[facility] Start: 11-09-2022 End: 11-09-2022 Emergency department patient visit [facility] Work Phone: Start: 08-12-2022 ambulatory [facility] Facility:[facility] Start: 08-12-2022 End: 08-12-2022 Subsequent hospital visit by physician Sabrina Dee MD, MPH Work Phone: [facility] Start: 06-16-2022 ambulatory [facility] Facility:[facility] Start: 06-16-2022 End: 06-16-2022 Office outpatient visit 40 minutes Sabrina Dee MD, MPH Work Phone: [facility] [place] Comment on above: Osteoporosis without current pathological fracture, unspecified osteoporosis type (Primary Dx); Alcohol-induced chronic pancreatitis Start: 06-13-2022 End: 06-13-2022 ambulatory ARIC ARCINIEGA . Facility:[facility] Start: 03-29-2022 End: 03-29-2022 ambulatory ELENITA ROLLINS . Facility:[facility] Start: 03-22-2022 End: 03-22-2022 Emergency department patient visit Agustin Llanes Facility:[facility] Start: 03-22-2022 End: 03-22-2022 Emergency department patient visit [facility] Work Phone: Start: 03-19-2022 End: 03-19-2022 ambulatory MONIK PARKINSON . Facility:[facility] Start: 01-28-2022 ambulatory SABRINA hamiltonty:[facility] Start: 01-28-2022 End: 01-28-2022 Subsequent hospital visit by physician Sabrina Dee MD, MPH Work Phone: [facility] Start: 01-27-2022 ambulatory [facility] Facility:[facility] Start: 01-27-2022 End: 01-27-2022 Subsequent hospital visit by physician Sabrina Dee MD, MPH Work Phone: [facility] Comment on above: Arrived Start: 01-15-2022 End: 01-15-[address] HELLEN KITCHEN . Facility:[facility] Start: 12-19-2021 End: 12-19-2021 Emergency department patient visit Robb Naylor [place] Facility:[facility] Start: 12-16-2021 ambulatory [facility] Facility:[facility] Start: 12-16-2021 End: 12-16-2021 Office outpatient visit 25 minutes Sabrina Dee MD, MPH Work Phone: [facility] [place] Comment on above: Recurrent acute panc reatitis (Primary Dx); History of smoking 25-50 pack years; Alcohol-induced chronic pancreatitis; Epigastric pain; Encounter for screening colonoscopy Start: 12-13-2021 End: 12-14-2021 ambulatory NICK COY Facility:[facility] Start: 12-05-2021 End: 12-05-[address] RAJEEV COATES Facility:[facility] Start: 10-11-2021 End: 10-12-[address] RAJEEV COATES Facility:[facility] Start: 10-04-2021 End: 10-04-2021 Emergency department patient visit [facility] Start: 09-30-2021 End: 09-30-2021 ambulatory NAT MAXWELL . Facility:[facility] Start: 09-25-2021 End: 09-25-2021 Emergency department patient visit [facility] Start: 09-17-2021 End: 09-17-[address] RAJEEV COATES Facility:[facility] Start: 08-26-2021 End: 08-26-2021 ambulatory NICK COY Facility:[facility] Start: 08-22-2021 End: 08-22-[address] TRI HANSON Facility:[facility] Start: 08-13-2021 End: 08-13-2021 ambulatory AGUSTIN MADRIGAL Facility:[facility] Start: 08-11-2021 End: 08-11-2021 Emergency department patient visit [facility] Start: 07-31-2021 End: 07-31-2021 ambulatory YANNI FRASER Facility:[facility] Start: 07-19-2021 End: 07-19-2021 ambulatory LYNNE PERDOMO Facility:[facility] Start: 03-19-2021 End: 03-19-2021 ambulatory Marya Almonte Other [employer] Other Start: 03-19-2021 Office outpatient visit 15 minutes Marya Garlandmlsandra [facility] Start: 05-22-2020 End: 05-22-2020 Orders Only Izabela Grant Work Phone: [facility] Start: 03-26-2020 Emergency department patient visit [facility] Start: 03-26-2020 End: 03-26-2020 Emergency department patient visit [facility] ED Comment on above: Acute biliary pancre atitis, unspecified complication status (Primary Dx) Start: 08-22-2019 End: 08-25-2019 Evaluation and management of inpatient [facility] Start: 08-22-2019 End: 08-25-2019 Evaluation and management of inpatient [facility] Work Phone: [facility] Comment on above: Acute pancreatitis, unspecified complication status, unspecified pancreatitis type (Primary Dx); Pain of upper abdomen Start: 03-08-2018 End: 03-09-2018 Evaluation and management of inpatient [facility] Start: 03-04-2018 End: 03-04-2018 Patient encounter procedure [facility] Start: 03-04-2018 End: 03-04-2018 Emergency department patient visit Keerthi Nguyen Work Phone: [facility] Comment on above: Acute on chronic see creatitis (HCC) (Primary Dx) Start: 08-24-2017 End: 08-24-2017 Emergency department patient visit [facility] Start: 08-24-2017 End: 08-24-2017 Emergency department patient visit Errol Walton Work Phone: [facility] Start: 06-09-2017 End: 06-09-2017 Emergency department patient visit ALEXANDER NICHOLS [facility] Start: 06-09-2017 End: 06-09-2017 Emergency department patient visit Joana Mendes Work Phone: [facility] Start: 05-14-2017 End: 05-15-2017 Patient encounter procedure ERIC [facility] Start: 05-14-2017 End: 05-15-2017 Emergency department patient visit David Gibson Work Phone: [facility] Medical Observation Procedures Date Procedure Procedure Detail Performing Clinician Start: 04-02-2023 Computed tomography of abdomen and pelvis with contrast Start: 11-09-2022 Computed tomography of abdomen and [...] Work Phone: Start: 03-26-2020 Lactate [Moles/Vol] Chaitanya negro Teena Work Phone: Start: 03-26-2020 SPECIMEN REJECTION Jeffery Dickinson Work Phone: Start: 03-26-2020 Urnls dip stick/tabl et rgnt auto w/o microscopy Erasto Dickinson Work Phone: Start: 08-25-2019 DISCHARGE PATIENT RAJEEV TINOCO Start: 08-25-2019 INITIATE OXYGEN THER APY PROTOCOL RAJEEV TINOCO Start: 08-25-2019 DIET CLEAR LIQUID RAJEEV TINOCO Start: 08-25-2019 Assay of lipase Rajeev Tinoco Work Phone: Start: 08-25-2019 Blood count complete auto&auto difrntl wbc Rajeev Tinoco Work Phone: Start: 08-24-2019 INITIATE OXYGEN THER APY PROTOCOL RAJEEV TINOCO Start: 08-24-2019 Assay of lipase RAJEEV OLIVIA Start: 08-24-2019 Blood count complete auto&auto difrntl wbc RAJEEV TINOCO Start: 08-24-2019 Assay of lipase Rajeev Tinoco Work Phone: Start: 08-24-2019 Blood count complete auto&auto difrntl wbc Rajeev Tinoco Work Phone: Start: 08-23-2019 AMBULATE IN BENAVIDES RAJEEV MICHEL Start: 08-23-2019 INITIATE OXYGEN THER APY PROTOCOL [...] 08-22-2019 IP CONSULT TO CASE MANAGEMENT RAJEEV TINOCO Start: 08-22-2019 NOTIFY PHYSICIAN (SPECIFY) RAJEEV ALEJANDRINA Start: 08-22-2019 PULSE OXIMETRY SPOT CHECK RAJEEV TINOCO Start: 08-22-2019 REASON FOR NO MECHAN ICAL VTE PROPHYLAXIS RAJEEV TINOCO Start: 08-22-2019 TELEMETRY MONITORING MA RK ALEJANDRINA Start: 08-22-2019 TOBACCO CESSATION EDUCATION RAJEEV TINOCO Start: 08-22-2019 VITAL SIGNS RAJEEV TINOCO Start: 08-22-2019 FULL CODE RAJEEV TINOCO Start: 08-22-2019 PATIENT STATUS (FROM ED OR OR/PROCEDURAL) RAJEEV TINOCO Start: 08-22-2019 Urnls dip stick/tabl et reagent auto microscopy RAJEEV TINOCO Start: 08-22-2019 Assay of lactate RAJEEV MICHEL Start: 08-22-2019 Assay of lipase RAJEEV OLIVIA [...] metabolic 1998 panel - Serum or Plasma Konstantin Connolly Work Phone: Start: 03-04-2018 End: 03-04-2018 Complete blood count with white cell differential, automated Konstantin Connolly Work Phone: Start: 03-04-2018 End: 03-04-2018 Complete blood count with white cell differential, manual Konstantin Connolly Work Phone: Start: 03-04-2018 End: 03-04-2018 RUFF TOP Keerthi Nguyen Work Phone: Start: 03-04-2018 End: 03-04-2018 Hepatic function 2000 panel - Serum or Plasma Konstantin Connolly Work Phone: Start: 03-04-2018 End: 03-04-2018 LIGHT BLUE TOP Keerthi Nguyen Work Phone: Start: 03-04-2018 End: 03-04-2018 LIGHT GREEN TOP Keerthi Nguyen Work Phone: Start: 03-04-2018 End: 03-04-2018 Lipase [Enzymatic activity/volume] in Serum or Plasma Konstantin Connolly Work Phone: Start: 03-04-2018 End: 03-04-2018 PINK TOP Keerthi Nguyen Work Phone: Start: 03-04-2018 End: 03-04-2018 RAINBOW DRAW Keerthi Nguyen Work Phone: Start: 09-25-2017 Lipid 1996 panel - S erika or Plasma Sabrina Dee MD, MPH Work Phone: Start: 01-02-2012 Mammography Izabela skniner Start: 12-11-2011 Microscopic observat ion [Identifier] in Cervix by Cyto stain Keerthi Nguyen Plan of Treatment Date Care Activity Detail Author Start: 03-16-2023 End: 03-16-2023 Patient encounter procedure 03/16/2023 Office Visit Gastroenterology Sabrina Dee MD, MPH [address] [place], [place] [address] [place], [place] [address] [facility] [place] Start: 11-07-2022 Influenza vaccination INFLUENZA VACCINE (Season Ended) [facility] Start: 09-25-2022 Lipid panel LIPID SCREENING [facility] Start: 07-29-2022 End: 06-17-2023 UPPER EUS UPPER EUS GI/Bronch Routine Alcohol-induced chronic pancreatitis Expected: 07/29/2022, Expires: 06/17/2023 [facility] Comment on above: Expected: 07/29/2022, Expires: 4 Start: 07-28-2022 End: 01-28-2023 Screening colonoscopy SCREENING COLONOSCOPY GI/Bronch Routine Encounter for screening colonoscopy Expected: 07/28/2022, Expires: 01/28/2023 [facility] Comment on above: Expected: 07/28/2022, Expires: 3 Start: 07-28-2022 End: 07-28-2022 Patient encounter procedure 07/28/2022 Appointment Endoscopy Julia Tyler MD [address] [address] [facility] End[facility] Start: 06-16-2022 End: 12-16-2022 Screening colonoscopy SCREENING COLONOSCOPY GI/Bronch Routine Encounter for screening colonoscopy Expected: 06/16/2022, Expires: 12/16/2022 [facility] Comment on above: Expected: 06/16/2022, Expires: 3 Start: 06-16-2022 End: 06-16-2022 Patient encounter procedure 06/16/2022 Office Visit Gastroenterology Sabrina Dee MD, MPH [address] [place] [address] [facility] [place] Start: 03-22-2022 Bacteria identified in Urine by Culture [facility] Start: 01-28-2022 End: 01-28-2022 Patient encounter procedure 01/28/2022 Appointment Endoscopy Sabrina Dee MD, MPH [address] [place] [address] [facility] Start: 01-28-2022 Subsequent hospital visit by physician 01/28/2022 Hospital Encounter Endoscopy Sabrina Dee MD, MPH [address] [place] [address] Arrived [facility] Comment on above: Arrived Start: 01-14-2022 End: 12-16-2022 UPPER EUS UPPER EUS GI/Bronch Routine Recurrent acute pancreatitis Expected: 01/14/2022, Expires: 12/16/2022 [facility] Comment on above: Expected: 01/14/2022, Expires: 3 Start: 12-16-2021 End: 12-16-2022 Bone density scan BONE DENSITY AXIAL (HIP, PELVIS, SPINE) Imaging Routine Recurrent acute pancreatitis History of smoking 25-50 pack years Expected: 12/16/2021, Expires: 12/16/2022 [facility] Comment on above: Expected: 12/16/2021, Expires: 3 Start: 11-07-2021 Influenza vaccination INFLUENZA VACCINE (#1) [facility] Start: 10-09-2021 CT of abdomen and pelvis without contrast CT abdomen pelvis wo [facility] Start: 10-09-2021 End: 10-09-2021 Emergency department patient visit Departed Emergency [facility] Start: 11-13-2020 COVID-19 VACCINE (3 - Booster for Pfizer series) COVID-19 VACCINE (3 - Booster for Pfizer series) [facility] Start: 11-08-2019 Influenza vaccination [place] Start: 11-08-2019 Influenza vaccination given Sequential Influenza Vaccine (#1) [facility] Start: 06-21-2019 Administration of herpes zoster vaccine Zoster Vaccines (1 of 2) [facility] Start: 06-21-2019 Screening for malignant neoplasm of breast Breast cancer screen [place], [place] Start: 06-21-2019 Screening for malignant neoplasm of colon [place] Start: 06-21-2019 Screening for malignant neoplasm of lung LUNG CANCER SCREENING [facility] Start: 06-21-2019 Shingles Vaccine (1 of 2) Shingles Vaccine (1 of 2) [place] Start: 06-21-2019 Zoster vaccine hzv live for subcutaneous use ZOSTER (SHINGLES) VACCINE (1 of 2) [facility] Start: 11-07-2017 Influenza vaccination [facility] Start: 11-07-2016 Influenza vaccination SEQUENTIAL INFLUENZA VACCINE (#1) [facility] Start: 12-10-2014 Screening for malignant neoplasm of cervix PAP SMEAR [facility] Start: 2014 Screening for malignant neoplasm of colon COLORECTAL CANCER SCREENING DISCUSSION [facility] Start: 01-01-2013 Screening for malignant neoplasm of breast MAMMOGRAM SCREENING DISCUSSION [facility] Start: 01-01-2013 Screening mammography Mammogram [facility] Start: 2009 Lipid panel Lipid screen [place], [place] Start: 1990 Screening for malignant neoplasm of cervix [facility] Start: 1988 DTaP/Tdap/Td vaccine (1 - Tdap) DTaP/Tdap/Td vaccine (1 - Tdap) [place] Start: 1988 Third diphtheria, tetanus and acellular pertussis (DTaP) vaccination TDAP (ADULT) [facility] Start: 06-21-1987 Hepatitis C antibody, confirmatory test Hepatitis C Screening [facility] Start: 06-21-1987 Tetanus vaccination TETANUS [facility] Start: 1985 COVID-19 Vaccine (1 of 2) COVID-19 Vaccine (1 of 2) [facility] Start: 1984 HIV screening [facility] Start: 06-21-1975 Pneumococcal 0-64 years Vaccine (1 of 1 - PPSV23) Pneumococcal 0-64 years Vaccine (1 of 1 - PPSV23) [place], [place] Start: 06-21-1975 PNEUMOCOCCAL VACCINE SERIES (1 - PCV) PNEUMOCOCCAL VACCINE SERIES (1 - PCV) [facility] Start: 1972 History and physical examination, annual for health maintenance Wellness Visit [facility] Start: 1969 Hepatitis B vaccination HEP B VACCINE (1 of 3 - 3-dose series) [facility] Start: 1969 Hepatitis C screening [facility] Start: 1969 Tetanus vaccination [facility] CBC auto differential CBC auto d ifferential Lab Routine Daily until discontinued starting 08/23/2019, 3 completed [place] Comment on above: Daily until discontinued starting 2019, [address] ABDOMEN PELVIS W IV CONTRAST Additional Contrast? None CT ABDOMEN PELVIS W IV CONTRAST Additional Contrast? None [facility] IgG Subclasses A dd-On 05/14/2017 2:06 PM BRIE [facility] Initiate Oxygen Therapy Protocol Initiate Oxygen Therapy Protocol Respiratory Care Routine Daily until discontinued starting 08/22/2019 [facility] Comment on above: Daily until discontinued starting 2019 Lipase Lipase Lab Routi ne Daily until discontinued starting 08/23/2019, 3 completed [facility] Comment on above: Daily until discontinued starting 2019, 3 completed Patient Education [facility] Work Phone: Patient referral [facility] Work Phone: End: 08-22-2019 Pulse Oximetry Spot Check Pulse Oximetry Spot Check Respiratory Care Routine One Time for 1 Occurrences starting 08/22/2019 until 08/22/2019 [facility] Comment on above: One Time for 1 Occurrences starting 08/07 until 08/22/2019 Screening colonoscopy SCREENING COLONOSCOPY GI/Bronch Routine Encounter for screening colonoscopy 01/28/2022 9:43 AM [facility] Immunizations Immunization Date Immunization Notes Care Provider Fa joy 12-23-2015 influenza, injectabl e, quadrivalent, contains preservative Sabrina Dee MD, MPH Work Phone: [facility] 12-23-2015 influenza virus vaccine, unspecified formulation Sabrina Dee MD, MPH Work Phone: [facility] 12-15-2014 influenza virus vaccine, unspecified formulation Sabrina Dee MD, MPH Work Phone: [facility] Payers Date Payer Category Payer Self-pay [id number] 2019 Unknown [facility] xxxxxxxxxxx 2019-Present [phone] CLAIMS DEPARTMENT [address] [place] [address] xxxxxxxxxxx [id number] 2017 Unknown [id number] 2017 Unknown 1969 Unknown [id number] 2.16.840.1.109840.3.579.2.900 1969 Unknown [id number] 2.16.840.1.322681.3.579.2.900 1969 Unknown [id number] 2.16.840.1.189745.3.579.2.900 1969 Unknown [id number] 2.16.840.1.920839.3.579.2.900 1969 Unknown [id number] 2.16.840.1.550070.3.579.2.900 1969 Unknown [id number] 2.16.840.1.823584.3.579.2.173 1969 Unknown [id number] 2.16.840.1.466191.3.579.2.173 1969 Unknown [id number] 2.16.840.1.604926.3.579.2.593 1969 Unknown [id number] 2.16.840.1.642449.3.579.2.593 1969 Unknown [id number] 2.16.840.1.179793.3.579.2.593 1969 Unknown [id number] 2.16.840.1.480885.3.579.2.593 1969 Unknown [id number] 2.16.840.1.137424.3.579.2.593 1969 Unknown [id number] 2.16.840.1.159899.3.579.2.593 1969 Unknown [id number] 2.16.840.1.454678.3.579.2.593 1969 Unknown [id number] 2.16.840.1.050706.3.579.2.593 1969 Unknown [id number] 2.16.840.1.582707.3.579.2.593 1969 Unknown [id number] 2.16.840.1.366112.3.579.2.593 1969 Unknown [id number] 2.16.840.1.661539.3.579.2.593 1969 Unknown [id number] 2.16.840.1.304633.3.579.2.593 1969 Unknown [id number] 2.16.840.1.548457.3.579.2.593 1969 Unknown [id number] 2.16.840.1.793846.3.579.2.593 1969 Unknown [id number] 2.16.840.1.194314.3.579.2.594 1969 Unknown [id number] 2.16.840.1.192999.3.579.2.594 1969 Unknown [id number] 2.16.840.1.619343.3.579.2.594 1969 Unknown [id number] 2.16.840.1.494775.3.579.2.594 1969 Unknown [id number] 2.16.840.1.643733.3.579.2.594 1969 Unknown [id number] 2.16.840.1.139272.3.579.2.594 1969 Unknown [id number] 2.16.840.1.237165.3.579.2.1286 1969 Unknown [id number] 2.16.840.1.669815.3.579.2.1286 1959 Medicaid [id number] 1959 Unknown [id number] Unknown [id number] 2.16.840.1.624244.3.579.2.531 Unknown [id number] 2.16.840.1.264289.3.579.2.531 Unknown [id number] 2.16.840.1.689268.3.579.2.531 Social History Date Type Detail Facility Start: 06-09-2017 End: 12-16-2021 Tobacco smoking status DEIS Current every day smoker [facility] tobacco use [facility] Start: 06-09-2017 End: 12-16-2021 Cigarettes smoked current (pack per day) - Reported [facility] Start: 1970 Sex Assigned At Not on file [facility] Start: 08-22-2019 End: 08-12-2022 Alcohol intake Current non-drinker of alcohol (finding) [facility] Exposure to SARS-CoV -2 (event) Unable to assess [facility] Start: 03-08-2018 End: 12-16-2021 Tobacco use and exposure Never used [facility] Start: 07-24-2014 Tobacco Comment Smokes < 1/2 p pd, smoker for 30+ years [facility] Start: 07-24-2014 Alcohol Comment Prior heavy dr carrillo, quit 8 years ago [facility] Sex Assigned At Sex Assigned At [facility] [employer] Other Start: 09-25-2021 End: 11-09-2022 Tobacco smoking status NHIS Smoker (finding) [facility] Start: 1970 Sex Assigned At Female F [facility] Start: 05-09-2016 Alcohol Comment been sober for 9 years [facility] Start: 04-02-2023 Tobacco smoking stat us DEIS Current some day smoker [facility] Clinical Notes 10-08-2019 to 08-12-2022 Sabrina [...] female seen in the pre-procedure area at [facility]. The indication for endoscopic evaluation [...] Laterality: N/A; Surgeon: Jose Ty MD; Location: [facility] EGD W/ ULTRASOUND N/A 02/14/2015 Laterality: N/A; Surgeon: Pineda Troy MD; Location: [facility] CHOLECYSTECTOMY CHOLECYSTECTOMY, LAPAROSCOPIC HYSTERECTOMY MEDICATIONS: Current Outpatient Medications Medication Instructions Amitriptyline (ELAVIL) 25 mg, Oral, DAILY AT BEDTIME Ergocalciferol (VITAMIN D2) 50,000 Units, Oral, WEEKLY omeprazole (PRILOSEC) 20 mg, Oral, DAILY Pancreatic enzymes (Creon) [address]-[address] units [address] Particles capsule 48,000 Units, Oral, 3 TIMES DAILY WITH MEALS Current Outpatient Medications: omeprazole [address] capsule, Take 1 capsule by mouth daily., Disp: 30 capsule, Rfl: 6 amitriptyline 10 MG tablet, Take 2.5 tablets by mouth at bedtime., Disp: 30 tablet, Rfl: 11 ergocalciferol 1.25 MG (15188 UT) capsule, Take 1 capsule by mouth once a week for 8 doses., Disp: 8 capsule, Rfl: 0 Pancreatic enzymes (Creon) 91561-[address] Particles capsule, Take 2 [...] Monitored Anesthesia Care. Sabrina Dee MD, MPH [facility] 08-12-2022 History and physical note ENDOSCOPIC PREPROCEDURE HISTORY AND PHYSICAL HISTORY OF PRESENT ILLNESS: Chioma Rainey is a 52 y.o. female seen in the pre-procedure area at [facility]. The indication for endoscopic evaluation includes: Alcohol-induced chronic pancreatitis PAST MEDICAL HISTORY: Past Medical History: Diagnosis Date Anemia Depression H. pylori infection Neutrophilic leukocytosis Pancreatitis SURGICAL HISTORY: Past Surgical History: Procedure Laterality Date EGD W/ ULTRASOUND N/A 12/01/2019 Laterality: N/A; Surgeon: Sabrina Dee MD, MPH; Location: [facility] EGD W/ ULTRASOUND N/A 04/23/2016 Laterality: N/A; Surgeon: Pineda Troy MD; Location: [facility] EGD W/ ULTRASOUND N/A 01/23/2016 Laterality: N/A; Surgeon: Pineda Troy MD; Location: [facility] CHANGE TUBE GASTROSTOMY N/A 08/20/2015 Laterality: N/A; Surgeon: Yanni Alonzo MD; Location: [facility] EGD DIAGNOSTIC N/A 06/25/2015 Laterality: N/A; Surgeon: Pineda Troy MD; Location: [facility] EGD W/ PLACEMENT OR REPLACEMENT PEG N/A 06/15/2015 Laterality: N/A; Surgeon: Curry Wilson MD; Location: [facility] EGD W/ INSERTION TUBE OR CATHETER N/A 06/13/2015 Laterality: N/A; Surgeon: Jose Ty MD; Location: [facility] EGD W/ ULTRASOUND N/A 02/14/2015 Laterality: N/A; Surgeon: Pineda Troy MD; Location: [facility] CHOLECYSTECTOMY CHOLECYSTECTOMY, LAPAROSCOPIC HYSTERECTOMY MEDICATIONS: Current Outpatient Medications Medication Instructions Amitriptyline (ELAVIL) 25 mg, Oral, DAILY AT BEDTIME Ergocalciferol (VITAMIN D2) 50,000 Units, Oral, WEEKLY omeprazole (PRILOSEC) 20 mg, Oral, DAILY Pancreatic enzymes (Creon) [address] Particles capsule 48,000 Units, Oral, 3 TIMES DAILY WITH MEALS Current Outpatient Medications: omeprazole [address] capsule, Take 1 capsule by mouth daily., Disp: 30 capsule, Rfl: 6 amitriptyline 10 MG tablet, Take 2.5 tablets by mouth at bedtime., Disp: 30 tablet, Rfl: 11 ergocalciferol 1.25 MG (93098 UT) capsule, Take 1 capsule by mouth once a week for 8 doses., Disp: 8 capsule, Rfl: 0 Pancreatic enzymes (Creon) [address] Particles capsule, Take 2 [...] MD, MPH documented in this encounter [facility] 08-12-2022 Nurse Note PT Given discharge paperwork and reviewed per MD and nurse. People Greeter available.Diet and restrictions reviewed as well. Venous access removed no complications noted. Ok to d/c Anesthesia and procedural MD. documented in this encounter [facility] 08-12-2022 Nurse Surgical operation note PT Given discharge paperwork and reviewed per MD and nurse. People Greeter available.Diet and restrictions reviewed as well. Venous access removed no complications noted. Ok to d/c Anesthesia and procedural MD. [facility] 06-16-2022 History of Presen t illness Narrative This Communication Consultant verified the patients name and date of [...] for pain management 5. Prior evaluation at [facility] for TPIAT and was not a candidate 6. Last CT was at [facility] in 05/2019: No calcification in the [...] (human immunodeficiency virus infection), Hyperlipidemia, Hyperthyroidism, Hypothyroidism, DE (myocardial infarction), Migraine, PEGGY (obstructive sleep apnea), [...] amitriptyline 10 MG tablet, ergocalciferol 1.25 MG (67190 UT) capsule, and Pancreatic enzymes (Creon) 96139-[address] Particles capsule. Allergies: She [...] Hepatology, and Nutrition documented in this encounter [facility] 06-16-2022 Instructions Sabrina Dee MD, MPH - 06/16/2022 11:00 AM EDT Schedule EUS celiac plexus block; EGD dilation Referral to endocrinology; appointment to be scheduled Return to clinic in Mar 2023 Smoking cessation Vitamin D 2000 units daily Calcium supplement 1 gram daily Omeprazole (Prilosec) 20mg daily, take at least 30 mins before dinner documented in this encounter [facility] 01-28-2022 Miscellaneous Notes Attending physician in room speaking with patient and family on results. Attending physician ok for discharge. Pt ambulated unassisted with steady gait and balance. IV removed and discharge instructions given with verbal ok by patient of understanding. Pt discharged via w/c with ice cream truck driver from unit. Dr dee aware patient ready for results Updated dr goins on patient pain and received new orders documented in this encounter [facility] 01-28-2022 Note Formatting of this n ote might be different from the original. Attending physician in room speaking with patient and family on results. Attending physician ok for discharge. Pt ambulated unassisted with steady gait and balance. IV removed and discharge instructions given with verbal ok by patient of understanding. Pt discharged via w/c with ice cream truck driver from unit. [facility] 01-28-2022 Note Formatting of this n ote might be different from the original. Dr dee aware patient ready for results [facility] 01-28-2022 Note Formatting of this n ote might be different from the original. Updated dr goins on patient pain and received new orders [facility] 01-28-2022 History and physical note ENDOSCOPIC PREPROCEDURE HISTORY AND PHYSICAL HISTORY OF PRESENT ILLNESS: Chioma Rainey is a 51 y.o. female seen in the preoprocedure area at [facility]. The indication for endoscopic evaluation [...] 50,000 Units, Oral, WEEKLY Pancreatic enzymes (Creon) [address] Particles capsule 48,000 Units, Oral, 3 TIMES DAILY WITH MEALS Current Outpatient Medications: amitriptyline 10 MG tablet, Take 2.5 tablets by mouth at bedtime., Disp: 30 tablet, Rfl: 11 Pancreatic enzymes (Creon) [address] Particles capsule, Take 2 capsules by mouth 3 times daily with meals., Disp: 180 capsule, Rfl: 0 ergocalciferol 1.25 MG (48588 UT) capsule, Take 1 capsule by mouth [...] Monitored Anesthesia Care. Sabrina Dee MD, MPH [facility] 01-28-2022 History and physical note ENDOSCOPIC PREPROCEDURE HISTORY AND PHYSICAL HISTORY OF PRESENT ILLNESS: Chioma Rainey is a 51 y.o. female seen in the preoprocedure area at [facility]. The indication for endoscopic evaluation includes: Recurrent acute pancreatitis PAST MEDICAL HISTORY: Past Medical History: Diagnosis Date Anemia Depression H. pylori infection Neutrophilic leukocytosis Pancreatitis SURGICAL HISTORY: Past Surgical History: Procedure Laterality Date EGD W/ ULTRASOUND N/A 12/01/2019 Laterality: N/A; Surgeon: Sabrina Dee MD, MPH; Location: [facility] EGD W/ ULTRASOUND N/A 04/23/2016 [...] 50,000 Units, Oral, WEEKLY Pancreatic enzymes (Creon) [address] Particles capsule 48,000 Units, Oral, 3 TIMES DAILY WITH MEALS Current Outpatient Medications: amitriptyline 10 MG tablet, Take 2.5 tablets by mouth at bedtime., Disp: 30 tablet, Rfl: 11 Pancreatic enzymes (Creon) [address] Particles capsule, Take 2 capsules by mouth 3 times daily with meals., Disp: 180 capsule, Rfl: 0 ergocalciferol 1.25 MG (31713 UT) capsule, Take 1 capsule by mouth [...] MD, MPH documented in this encounter [facility] 12-16-2021 History of Presen t illness [...] for pain management 5. Prior evaluation at [facility] for TPIAT and was not a candidate 6. Last CT was at [facility] in 05/2019: No calcification in the pancreas. Last EUS in 2017 at [facility]: hyperechoic foci, hyperechoic duct wall, [...] (human immunodeficiency virus infection), Hyperlipidemia, Hyperthyroidism, Hypothyroidism, DE (myocardial infarction), Migraine, PEGGY (obstructive sleep apnea), [...] 10 MG tablet and Pancreatic enzymes (Creon) [address] Particles capsule. Allergies: She [...] in 6 months documented in this encounter [facility] 12-16-2021 Instructions Sabrina Dee MD, MPH - 12/16/2021 11:30 AM EDT Schedule DEXA scan Schedule colonoscopy Schedule EUS Start vitamin D 1,000 units daily. Start calcium supplements 1g daily RTC in 6 months documented in this encounter [facility] 03-19-2021 Evaluation note Encounter Date [...] Patient care instructions given in writting by [facility] Care At Home document [employer] Other 08-01-2020 History general Narrative - Reported* Type Description Date Medical History chronic pancreatitis Medical History chronic pain Medical History former alcoholic Surgical History [facility] Surgical History GALLBLADDER Surgical History COLON-[facility] Hospitalization History see above [employer] Other Evaluation noteNo assessment information available [facility] Work Phone: Evalusfmkt note* Diagnosis Recurrent acute pancreatitis- Primary Acute pancreatitis History of smoking 25-50 pack years Alcohol-induced chronic pancreatitis Chronic pancreatitis Epigastric pain Abdominal pain, epigastric Encounter for screening colonoscopy Special screening for malignant neoplasms, colon [facility] Recurrent acute pancreatitis Acute pancreatitis History of smoking 25-50 pack years Encounter for screening colonoscopy Special screening for malignant neoplasms, colon [facility] Diagnosis Other osteoporosis without current pathological fracture- Primary Recurrent acute pancreatitis Acute pancreatitis Encounter for screening colonoscopy Special screening for malignant neoplasms, colon [facility] Encounter for screening colonoscopy Special screening for malignant neoplasms, colon [facility] Diagnosis Osteoporosis without current pathological fracture, unspecified osteoporosis type- Primary Alcohol-induced chronic pancreatitis Chronic pancreatitis [facility] Diagnosis Alcohol-induced chronic pancreatitis Chronic pancreatitis [facility] Additional Instructions Fluids Phenergan if needed for nausea vomiting Bentyl as needed for abdominal pain Follow-up with your GI specialist call Thursday for appointment Return here if any problems persist or [facility] Discharge instructions Additional Instructions Clear with diet today and advance as tolerated Push fluids Percocet if needed for severe pain Zofran or Phenergan if needed for nausea vomiting Keep your doctor's appointment tomorrow as planned Return here if you develop any increased pain, vomiting unable to be controlled, fevers, chills or any other [facility] Work Phone: Discharge Instructions * Jose Brown [...] Log into your personal health record on [email or web address] and enter E907 in the Education box to learn more about Abdominal Pain: Care Instructions. Current as of: August 03, 2015 Content Version: 11.2 6055-7833 Results Scorecard. Care instructions adapted under license by your healthcare professional. If you have questions about a medical condition or this instruction, always ask your healthcare professional. Results Scorecard disclaims any warranty or liability for your [...] Log into your personal health record on [email or web address] and enter H591 in the Education box to learn more about Nausea and Vomiting: Care Instructions. Current as of: August 03, 2015 Content Version: 11.2 0842-9246 Results Scorecard. Care instructions adapted under license by your healthcare professional. If you have questions about a medical condition or this instruction, always ask your healthcare professional. Results Scorecard disclaims any warranty or liability for your use of this information. Please review regarding your visit: Please note that your blood pressure during this ER visit was above 120/80 mmHg. YOUR BP READING WAS: 111/88 The [place] [employer] (AHA) defines a normal blood [...] review at your convenience for more information: [email or web address]/[email or web address] in this encounter* Discharge Instr - Other Orders - Poncho Sparks RN - 05/15/2017 1:20 PM EST Patient voices desire to leave hospital AMA. IV removed. Patient is ambulatory in care of spouse. [facility] hospitalist notified. in this encounter* Montse Khan CNP - 08/24/2017 Seek medical attention if you have worsening symptoms or other concerns. Please follow up with your family doctor or one of your choosing. You may find a provider through the [facility] Physician Referral Service by calling [phone] ([phone]) or by visiting [email or web address] Chioma, Thank You for choosing [facility]! The following attachments cannot be sent through Care Everywhere. * Nausea and Vomiting (Niuean) * Gastroenteritis (Niuean) * Diarrhea (Niuean) in this encounter The following attachments cannot be sent through Care Everywhere. * Pancreatitis (Niuean) in this encounter* Instructions* Laura Meyer RN - 08/25/2019 Patient Instructions: Activity: activity as tolerated Diet: encourage fluids GI specialist in 2 weeks. * Attachments The following attachments cannot be sent through Care Everywhere. * Pancreatitis: Chronic Diet (Niuean) * Pancreatitis (Niuean) documented in this encounter Assessments Diagnosis Epigastric [...] complication status- Primary Summary Purpose Family History Relationship Condition Age at Onset Recorded Date/T eli Not Specified Unknown family medical history Unknown Advance Directives Documents on File Type Date Recorded Patient Metal Drawer Expl anation Advance Directives and Living Will Power of General Magistrate Latest Code Status on File Code Status Date Activated Date Inactivated Comments Full Code 08/22/2019 4:27 PM Documents on File Type Date Recorded Patient Metal Drawer Expl anation Advance Directives and Livin g [...] Documents on File Type Date Recorded Patient Metal Drawer Expl anation ACP-Advance Directive ACP-Power of General Magistrate Latest Code Status on File Code Status [...] toradol is contraindicated. Called Dr. Hughes back, health underwriter explained that patient is tolerating dilaudid. Dr. Hughes ordered dose of dilaudid increased from 0.25 mg to 0.5 mg q4 hrs PRN. * Ladan Stearns RN - 08/24/2019 1:27 PM EDT Patient walking in hallway at this time. * Ladan Stearns RN - 08/24/2019 9:14 AM EDT Commodities Clerk to patients bedside at this time to reassess pain. Patient sitting in chair, appears restless and is tearful. Patient states Dilaudid did not help the pain, states there is nothing health underwriter can do as she deals with this often. Will continue to monitor patient. * Jax Carley Madison, COYOTE HUNTER - ASSISTANT PRESSMAN - 08/24/2019 7:58 AM EDT Progress Note [...] Scheduled for EGD in September with her Cut Tobacco Bulker at [facility] Discharge Planning -- Home when stable Carley Camara APRN, UNLOAD ASSOCIATE-C Associated attestation - Rajeev Tinoco MD - 08/24/2019 5:30 PM EDT Attending Supervising Physician s Attestation Statement I have personally evaluated and examined the patient [id number] in conjunction with the nurse practitioner. I [...] Examined and Reviewed plan of care with UNLOAD ASSOCIATE. Directions and discussion about care and plans. [...] 08/23/2019 10:51 PM EDT Pt c/o pain 09/15 and requesting Dilaudid 0.25mg. Medication given. Pt also c/o minimal itching and requesting Benadryl 25mg. Medication given. Will continue to monitor. * Brie Birmingham RN - 08/23/2019 6:00 PM EDT Patient states that she is less itchy and redness has improved. * Brie Birmingham RN - 08/23/2019 4:40 PM EDT Commodities Clerk contacted Dr. Tinoco regarding update that patient continues to c/o itching and feeling hot, and that redness is slightly worse to BUE. Order received for Benedryl now and then may repeat in 6 hours if needed. * Brie Birmingham RN - 08/23/2019 3:32 PM EDT Nat from Dr. Tinoco's office returned phone call at this time. She states to d/c Lovenox, but he would not give order for Benedryl. Commodities Clerk let nurse know that if patient's c/o ithcing and redness doesn't improve in an hour, that health underwriter will be calling back to update physician. * Brie Birmingham RN - 08/23/2019 3:20 PM EDT Commodities Clerk called into patient's room d/t patient c/o itching, feeling hot , and slight redness noted to BUE and face. Commodities Clerk contacted Dr. Tinoco office and left message with his nurse, asking for IV Benedryl and d/c of Lovenox. Patient thinks she may have had reaction to Lovenox in the past, and thatis the only other med she is currently taking here other than Dilaudid. Commodities Clerk did once again verify that patient usually [...] medically stable. Patient lives with her in [place]. She uses no DME and has no outside services currently in place. Patient provides for her own transportation needs and manages her medications. She is independent with her ADL's. PCP is [facility]. Patient has [employer] and denies needing further assistance with the cost of her medications. Discharge plan is home with no additional services at this time. Patient is a 'Full Code' status. She has no healthcare directives and voices that she is not interested in pursuing these documents further. PIGMENT GRINDER to monitor and assist with discharge planning [...] Birmingham RN - 08/23/2019 9:05 AM EDT Commodities Clerk made ASSISTANT PRESSMAN aware that patient is vomiting at this time since clear liquid diet added. Commodities Clerk to give Zofran and place patient back [...] weight loss, but states of weight gain. [id number] Discussed need to re-zero Pt bed to verify gain. She declined education needs states she has a GI doctor and RDN at the [facility]. Reports following the guidelines they [...] 5. Fluid Accumulation-No significant fluid accumulation, 6. Trestle Mechanic Strength-Not measured Nutrition Risk Level: Moderate Nutrient Needs: Estimated Daily Total Kcal: 4541-9467(20-23/kg) Estimated Daily Protein (g): 65-75g(1.3-1.5g/kg) Estimated Daily [...] weight gain/23%, recommend to re-zero Pt bed [place] Body Wt: 110 lb (49.9 kg), % [place] Body 129% BMI Classification: BMI 25.0 - [...] Nausea or Vomiting, Patient/Family Education Contact Number: [phone] * Carley Camara, COYOTE HUNTER - ASSISTANT PRESSMAN - 08/23/2019 7:30 AM EDT Progress Note [...] Daily Discharge Plan--later today/tomorrow Carley Camara APRN, UNLOAD ASSOCIATE-C Associated attestation - Rajeev Tinoco MD - 08/23/2019 12:04 PM EDT Attending Supervising Physician s Attestation Statement I have personally evaluated and examined the patient [id number] in conjunction with the nurse practitioner. I [...] Examined and Reviewed plan of care with UNLOAD ASSOCIATE. Directions and discussion about care and plans. [...] per orders. Will continueto monitor. * Brie iBrmingham RN - 08/22/2019 3:55 PM EDT Patient arrived to floor via w/c with [facility] staff d/t ED in process of running a code on another patient; delivery supervisor states that report will be called when able. Commodities Clerk unable to get ahold of staff inED to put patient in manager night so that health underwriter can transfer patient over to [facility]. Will try again shortly. documented in this encounter Chief Complaint and Reason for Visit Chief Complaint Abd Pain hx Pancreat itis Abd Pain Chief Complaint Abd Pain hx Pancreat itis Abd Pain rt side pain abd pain Chief Complaint nausea, pain , diarr hea Chief Complaint abd pain Chief Complaint lt side pain Reason for Referral Specialty Diagnoses / Procedures Referred By Zia espinal Referred To Contact Diagnoses Alcohol-induced chronic pancreatitis Procedures UPPER EUS MD ESOPHAGOGASTRODUODENOSCOPY US SCOPE W/ADJ STRXRS Sabrina Dee MD, MPH [address] [place] [phone] Referral ID Status Reason Start Date Expiration Date V isits Requested Visits Authorized [id number] New Request 06/16/2022 07/11/2023 1 1 Specialty Diagnoses / Procedures Referred By Zia espinal Referred To Contact Endocrinology, Diabetes & Metabolism Diagnoses Osteoporosis without current pathological fracture, unspecified osteoporosis type Sabrina Dee MD, MPH [address] [place] [phone] Referral ID Status Reason Start Date Expiration Date V isits Requested Visits Authorized [id number] New Request 06/16/2022 07/11/2023 1 1 Specialty Diagnoses / Procedures Referred By Zia espinal Referred To Contact Diagnoses Encounter for screening colonoscopy Procedures SCREENING COLONOSCOPY MD COLON CA SCRN NOT HI RSK IND Sabrina Dee MD, MPH [address] [place] [phone] Referral ID Status Reason Start Date Expiration Date V isits Requested Visits Authorized [id number] New Request 12/16/2021 01/10/2023 1 1 Specialty Diagnoses / Procedures Referred By Contac t Referred To Contact Diagnoses Recurrent acute pancreatitis History of smoking 25-50 pack years Procedures BONE DENSITY AXIAL (HIP, PELVIS, SPINE) Sabrina Dee MD, MPH [address] [place] [phone] Referral ID Status Reason Start Date Expiration Date V isits Requested Visits Authorized [id number] New Request 12/16/2021 01/10/2023 1 1 Specialty Diagnoses / Procedures Referred By Contac t Referred To Contact Diagnoses Recurrent acute pancreatitis Procedures UPPER EUS MD EGD US GUIDED TRANSMURAL INJXN/FIDUCIAL MARKER Sabrina Dee MD, MPH [address] [place] [address] Referral ID Status Reason Start Date Expiration Date V isits Requested Visits Authorized [id number] New Request 12/16/2021 01/10/2023 1 1 Additional [...] the patient. I discussed the patient with UNLOAD ASSOCIATE/PA. I agree with the UNLOAD ASSOCIATE/PA treatment plan. I agree with the UNLOAD ASSOCIATE/PA plan of care. I agree with the UNLOAD ASSOCIATE/PA dispo as documented. 46-year-old female presents with abdominal pain. She states I have chronic pancreatitis and this feels like a flareup . States that she took her usual Phenergan and Morton with minimal relief so came the emergency [...] She is going to follow with her corn husk baler with whom she has an appointment on [...] with the pain. Ill wait for now. ANKIT Brown notified and aware at this time. This [...] different from the original. ED PROVIDER NOTE [facility] EMERGENCY DEPARTMENT NAME: Chioma Rainey AGE: 46 y.o. : 1970 VISIT DATE: 06/09/2017 CSN: [id number] PCP: Alexander Nichols MD Chief Complaint Patient presents with [...] Phenergan suppository. She states that she took Morton last night. Last dose of Morton was around 9 PM last night. She [...] Procedure: EGD; Surgeon: Romain Dumont MD; Location: [facility]; Service: HYSTERECTOMY ORIF PELVIS ORTHOPEDIC SURGERY [...] Yellow Clarity, Urine Cloudy (A) Clear Specific [place] 1.024 1.005 - 1.025 pH, Urine 5.0 [...] Phenergan suppositories. She has follow-up with her corn husk baler at [facility] in 2 weeks. Do not feel she [...] Information 1. Pineda Troy MD. Specialty: Gastroenterology [address] [address] Contact information for after-discharge care Follow-up information has not been specified. New Prescriptions No medications on file (Please note that portions of this note may have been completed with a voice recognition software. Efforts were made to correct any errors, but occasionally words are mis-transcribed.) Jose Brown PA-C 06/09/17 0934 Pt states I have pancreatitis and I am having a flare up since last night . Pt relates mid abdominal pain that shoots into the left side of her back. Pt has been taking prescribed Morton without relief and states she has been vomiting.in this encounter I personally interviewed the patient. I personally examined the patient. I discussed the patient with UNLOAD ASSOCIATE/PA. I agree with the UNLOAD ASSOCIATE/PA treatment plan. I agree with the UNLOAD ASSOCIATE/PA plan of care. I agree with the UNLOAD ASSOCIATE/PA dispo as documented. I saw evaluate this [...] different from the original. ED PROVIDER NOTE [facility] MEDICAL OBSERVATION NAME: Chioma Rainey AGE: 46 y.o. : 1970 VISIT DATE: 05/14/2017 CSN: [id number] PCP: Alexander Nichols MD Chief Complaint Patient presents with [...] Procedure: EGD; Surgeon: Romain Dumont MD; Location: [facility]; Service: HYSTERECTOMY ORIF PELVIS ORTHOPEDIC SURGERY [...] Oral 81 17 98 % - - 05/14/171742 113/75 97.7 ?F (36.5 ?C) Oral 76 [...] Colorless, Yellow Clarity, Urine Clear Clear Specific [place] 1.006 1.005 - 1.025 pH, Urine 5.0 [...] in the left lower pelvis. Workstation ID: [id number] Procedures MDM This is a 46-year-old female [...] toradol and phenergan. This RN spoke with NAOMY Ross. OK to discharge patient now. Formatting of this note may be different from the original. ED PROVIDER NOTE [facility] EMERGENCY DEPARTMENT NAME: Chioma Rainey AGE: 47 y.o. : 1970 VISIT DATE: 08/24/2017 CSN: [id number] PCP: Alexander Nichols MD Chief Complaint Patient presents with [...] Procedure: EGD; Surgeon: Romain Dumont MD; Location: [facility]; Service: HYSTERECTOMY ORIF PELVIS ORTHOPEDIC SURGERY [...] Yellow Clarity, Urine Hazy (A) Clear Specific [place] 1.006 1.005 - 1.025 pH, Urine 7.0 [...] probably remain. 5. Small left adrenal adenoma. [employer] Workstation ID: [id number] Procedures MDM 47-year-old female [...] she did vomit. She was then given MD Phenergan and a dose of Toradol. She [...] type NAUSEA AND VOMITING Follow-up Information 1. Alexander Nichols MD. Specialty: Internal Medicine Why: follow up ER visit [address] [address] Contact information for after-discharge care Follow-up information [...] the patient. I discussed the patient with UNLOAD ASSOCIATE/PA. I agree with the UNLOAD ASSOCIATE/PA treatment plan. I agree with the UNLOAD ASSOCIATE/PA plan of care. I agree with the UNLOAD ASSOCIATE/PA dispo as documented. Formatting of this note may be different from the original. ED PROVIDER NOTE [facility] EMERGENCY DEPARTMENT NAME: Chioma Rainey AGE: 47 y.o. : 1970 VISIT DATE: 03/04/2018 CSN: [id number] PCP: Alexander Nichols MD Chief Complaint Patient presents with [...] Procedure: EGD; Surgeon: Romain Dumont MD; Location: [facility]; Service: HYSTERECTOMY ORIF PELVIS ORTHOPEDIC SURGERY [...] Colorless, Yellow Clarity, Urine Clear Clear Specific [place] 1.004 (L) 1.005 - 1.025 pH, Urine [...] Condition Comment Hospitalize Attending Provider or Group: [facility] SACHIN, AKIL [[id number]] Phone call required?: No Follow-up Information Follow-up information has not been specified. Contact information for after-discharge care Follow-up information has not been specified. New Prescriptions No medications on file Konstantin Connolly PA-C 03/04/18 1412 Konstantin Connolly PA-C 03/04/18 1541 Pt sts that she has a history of pancreatitis and believes she is having a flare up.in this encounter Alirio Negro MD - 05/14/2017 6:40 PM EST H&P Notes (unrecognized sect ion and content) Formatting of this note may be different from the original. Alirio Negro MD [facility] Hospitalists History and Physical Patient Name:Chioma Rainey MR #:[id number] :1970 Admit Date: [id number] Physicians: Alexander Nichols MD (Family); No ref. provider found [...] Procedure: EGD; Surgeon: Romain Dumont MD; Location: [facility]; Service: HYSTERECTOMY ORIF PELVIS ORTHOPEDIC SURGERY [...] Diagnoses Acute recurrent pancreatitis Rajeev Tinoco MD [address] [place] [address], [place] [address] [facility] Reason Comments Abdominal Pain Pt c/o abdominal [...] SPINE) Sabrina Dee MD, MPH [address] [place] [phone] Referral ID Status Reason Start Date Expiration Date V isits Requested Visits Authorized [id number] New Request 12/16/2021 01/10/2023 1 1 Specialty Diagnoses / Procedures Referred By Zia espinal Referred To Contact Diagnoses Recurrent acute pancreatitis Procedures UPPER EUS MD EGD US GUIDED TRANSMURAL INJXN/FIDUCIAL MARKER Sabrina Dee MD, MPH [address] [place] [phone] Referral ID Status Reason Start Date Expiration Date V isits Requested Visits Authorized [id number] New Request 12/16/2021 01/10/2023 1 1 Specialty Diagnoses / Procedures Referred By Zia espinal Referred To Contact Diagnoses Encounter for screening colonoscopy Procedures SCREENING COLONOSCOPY MD COLON CA SCRN NOT HI RSK IND Sabrina Dee MD, MPH [address] [place] [phone] Referral ID Status Reason Start Date Expiration Date V isits Requested Visits Authorized [id number] New Request 12/16/2021 01/10/2023 1 1 Reason Comments Follow-up 6 month follow up Specialty Diagnoses / Procedures Referred By Zia espinal Referred To Contact Diagnoses Alcohol-induced chronic pancreatitis Procedures UPPER EUS MD ESOPHAGOGASTRODUODENOSCOPY US SCOPE W/ADJ STRXRS Sabrina Dee MD, MPH [address] [place] [phone] Referral ID Status Reason Start Date Expiration Date V isits Requested Visits Authorized [id number] New Request 06/16/2022 07/11/2023 1 1 INFORMATION SOURCE (unrecogn ized section and content) DATE CREATED AUTHOR 03/09/2018 [facility] DATE CREATED AUTHOR AUTHOR'S ORGANIZ ATION 03/28/2020 [facility] DATE CREATED AUTHOR AUTHOR'S ORGANIZ ATION 04/08/2021 [facility] DATE CREATED AUTHOR AUTHOR'S ORGANIZ ATION 06/18/2022 [facility] DATE CREATED AUTHOR AUTHOR'S ORGANIZ ATION 08/17/2022 [facility] DATE CREATED AUTHOR AUTHOR'S ORGANIZ ATION 11/28/2022 [facility] DATE CREATED AUTHOR AUTHOR'S ORGANIZ ATION 03/29/[address] [facility] Care Teams (unrecognized sec tion and content) [...] Active Christa Lopez PA-C Emergency Provider Active Glass Cutter Helper Relationship Specialty Start Date End Date Pineda Troy MD [address] [place] [phone] PCP - Referring 1 Gastroenterology 09/25/17 [facility], Other [address] [place] [address] PCP - General 11/28/19 Glass Cutter Helper Relationship Specialty Start Date End Date Pineda Troy MD [address] [place] [phone] PCP - Referring 1 Gastroenterology 09/25/17 [facility], Other [address] [facility] [place] [address] PCP - General 11/28/19 Glass Cutter Helper Relationship Specialty Start Date End Date Pineda Troy MD [address] [place] [address], [place] [phone] PCP - Referring 1 Gastroenterology 09/25/17 [facility], Other [address] [facility] [place] [address] PCP - General 11/28/19 Glass Cutter Helper Relationship Specialty Start Date End Date Pineda Troy MD [address] [place] [address], [place] [phone] PCP - Referring 1 Gastroenterology 09/25/17 [facility], Other [facility] [place] [address] PCP - General 11/28/19 Team Status: Inactive Member Role Status Dates NON STAFF Primary Care Provider Active Agustin Llanes MD Emergency Provider Active Glass Cutter Helper Relationship Specialty Start Date End Date Pineda Troy MD [address] [place] [phone] PCP - Referring 1 Gastroenterology 09/25/17 [facility], Other [address] [facility] [place] [address] PCP - General 11/28/19 Glass Cutter Helper Relationship Specialty Start Date End Date Pineda Troy MD [address] [place] [phone] PCP - Referring 1 Gastroenterology 09/25/17 [facility], Other [address] [facility] [place] [address] PCP - General 9/21/20 Team Status: Inactive Member Role Status Dates NON STAFF Primary Care Provider Active Nicole Posadas APRN Emergency Provider Active Team Status: Inactive Member Role Status Dates NON STAFF Primary Care Provider Active Start: April 02, 2023 End: April 02, 2023 Nicole Posadas APRN Emergency Provider Active Start: April 02, 2023 End: April 02, 2023 Goals (unrecognized section and content) Goals may [...] BE BASED ON THE PRIMARY CLINICAL RECORDS. [facility] [employer] [facility]. provides no warranty or guarantee of the accuracy or completeness of information in this document.
--- NOTE | 2023-04-03 02:40 | XR_ITS ---
The [address] [address] Patient Name: CHIOMA BOUDREAUX MRN: [id number] date: 1970 Sex: F Assigned Patient Location: ER Current Patient Location: ER Accession/Order Number: [id number] Exam Date: 04/03/2023 03:20 Report Date: 04/03/2023 04:33 At the request of: DEV ROBB Procedure: XR acute abdomen series EXAMINATION: XR acute abdomen series HISTORY: abd pain COMPARISON: XR chest and abdomen 08/27/2022, CT abdomen pelvis 03/25/2023 report FINDINGS: LUNGS: No infiltrate, pneumothorax, or pleural effusion. MEDIASTINUM: No abnormal widening. BOWEL GAS PATTERN: Non-obstructed. FREE AIR: None. CALCIFICATIONS: None significant. BONES: No fracture or visible bone lesion. OTHER: Radiopaque contrast within urinary bladder from recent CT study. Snaps from clothing artifact project over pelvis. XR/XR acute abdomen series IMPRESSION: 1. No acute cardiopulmonary process or suspicious findings. 2. Normal bowel gas pattern. No suspicious abdominal findings. Electronically authenticated by: TRI HANSON Date: 04/03/2023 04:33
[2023-04-03] MEDS: HYDROMORPHONE HCL 0.5 MG/0.5 ML SYRINGE IV ×2 (03:04→04:35)
[2023-04-03] MEDS: PROMETHAZINE HCL 25 MG/ML VIAL IV (03:04)
[2023-04-03] MEDS: 0.9 % SODIUM CHLORIDE 1,000 ML 999 ML IV (03:07)
[2023-04-03 03:14] LABS: Basophils Absolute Auto 0.1 10^3/uL (0.0-0.1); Basophils Percent Auto 0.7 % (0.2-2.0); Eosinophils Absolute Auto 0.1 10^3/uL (0.0-0.7); Eosinophils Percent Auto 1.2 % (0.9-7.0); Immature Granulocytes Abs Auto 0.08 10^3/uL (0.00-0.03); Immature Granulocytes Pct Auto 0.9 % (0.0-0.5); Lymphocytes Absolute Auto 2.6 10^3/uL (1.2-3.8); Lymphocytes Percent Auto 28.1 % (20.5-60.0); Mean Corpuscular HGB Conc 33.3 g/dL (29.9-35.2); Mean Corpuscular Hemoglobin 32.7 pg (26.7-34.0); Mean Platelet Volume 10.1 fL (9.5-13.5); Monocytes Absolute Auto 0.7 10^3/uL (0.3-0.8); Monocytes Percent Auto 7.9 % (1.7-12.0); Neutrophils Absolute Auto 5.7 10^3/uL (1.4-6.5); Neutrophils Percent Auto 61.2 % (43.0-75.0); Platelet Count 225 10^3/uL (150-450); Red Blood Count 3.98 10^6/uL (4.20-5.40); Red Cell Distribution Width 12.5 % (11.0-15.0); White Blood Count 9.4 10^3/uL (4.0-11.0)
[2023-04-03 03:26] LABS: Lactate/Lactic Acid 0.5 mmol/L (0.4-2.0)
[2023-04-03 03:32] LABS: Alanine Aminotransferase 21 U/L (14-59); Albumin Globulin Ratio 1.1; Albumin Level 3.5 g/dL (3.4-5.0); Alkaline Phosphatase 125 U/L (46-116); Anion Gap 9.2; Aspartate Amino Transferase 23 U/L (15-37); BUN Creatinine Ratio 6.3; Bilirubin Total 0.2 mg/dL (0.2-1.0); Calcium 9.6 mg/dL (8.5-10.1); Carbon Dioxide 29.3 mmol/L (21.0-32.0); Chloride 105 mmol/L (98-107); Estimated GFR (African America >60 (>=60); Estimated GFR (Non-African Ame >60 (>=60); Globulin 3.2 g/dL; Glucose 98 mg/dL (74-106); Potassium 3.5 mmol/L (3.5-5.1); Sodium 140 mmol/L (136-145); Total Protein 6.7 g/dL (6.4-8.2); Troponin I High Sensitivity 4.8 pg/mL (4.0-51.3)
[2023-04-03] MEDS: ONDANSETRON PF 4 MG/2 ML VIAL IV ×3 (04:35→08:34)
--- NOTE | 2023-04-03 05:35 | ED.GENADUL1 ---
HPI - General Adult General Chief complaint: Abdominal Pain Stated complaint: ABD PAIN Time Seen by Provider: 04/03/23 02:27 Source: patient Mode of arrival: walk-in Limitations: no limitations History of Present Illness HPI narrative: 52-year-old female with history of recurrent chronic pancreatitis the emergency department she will his epigastric pain and nausea vomiting. Patient reports symptoms started up over the last twenty-four hours. Elevate pancreatitis flare for her. She denies any fever, sweats, chills. She denies any diarrhea. She reports she is otherwise in her baseline health. She's been taking her medications as prescribed. She denies any alcohol use. Related Data Home Medications Medication Instructions Recorded Confirmed ergocalciferol (vitamin D2) 1,250 50,000 unit PO .weekly 08/27/22 03/16/23 mcg (50,000 unit) capsule (Vitamin D2) [id number] 2 cap PO BID 08/27/22 03/16/23 6,000-19,000-30,000 unit capsule,delayed rel (Creon) Previous Rx's Medication Instructions Recorded oxycodone-acetaminophen 5 mg-325 1 tab PO Q6H PRN pain #10 tabs 08/27/22 mg tablet (Percocet) promethazine 25 mg tablet 25 mg PO Q6H PRN nausea and 08/27/22 vomiting #12 tabs hydrocodone 5 mg-acetaminophen 325 1 tab PO Q6H PRN pain #8 tabs 10/14/22 mg tablet albuterol sulfate 90 mcg/actuation 2 inh inhalation QID PRN shortness 11/20/22 aerosol inhaler (ProAir HFA) of breath or wheezing #8.5 grams guaifenesin 600 mg tablet, 600 mg PO Q12H PRN cough #10 tabs 11/20/22 extended release 12 hr (Mucinex) hydrocodone 5 mg-acetaminophen 325 1 tab PO Q4H PRN pain #6 tabs 01/16/23 mg tablet oxycodone-acetaminophen 5 mg-325 1 tab PO Q6H PRN pain 4 days #15 03/07/23 mg tablet (Percocet) tabs sucralfate 1 gram tablet (Carafate) 1 g PO Q6H PRN abdominal pain #12 03/07/23 tabs famotidine 20 mg tablet (Pepcid) 20 mg PO BID #10 tabs 03/25/23 ondansetron 4 mg disintegrating 4 mg PO Q6H PRN nausea and 03/25/23 tablet vomiting #12 tabs oxycodone-acetaminophen 5 mg-325 1 tab PO Q6H PRN pain 2 days #10 03/25/23 mg tablet (Percocet) tabs Allergies Allergy/AdvReac Type Severity Reaction Status Date / Time haloperidol [From Haldol] Allergy Intermediate Hives Verified 04/03/23 02:30 ibuprofen [From Motrin] Allergy Intermediate Hives Verified 04/03/23 02:30 tramadol Allergy Intermediate Hives Verified 04/03/23 02:30 Penicillins Allergy Unknown Verified 04/03/23 02:30 ketorolac [From Toradol] AdvReac Severe Hives Verified 04/03/23 02:30 fentanyl AdvReac Intermediate Verified 04/03/23 02:30 Review of Systems ROS Status of ROS 10 or more systems reviewed and unremarkable except as noted in history and below PFSH PFS Social History Smoking status: Current every day smoker Exam Narrative Exam Narrative: VITALS: I have reviewed the triage vital signs. GENERAL: adult female vomiting in the bedside NEURO: Alert and oriented. Moves all extremities. Face is symmetric and expressive. EYES: PERRL. No scleral icterus or conjunctival injection. No discharge. HENT: Normocephalic, atraumatic. Hearing is grossly intact. Nares grossly patent and without discharge. Mucous membranes moist. NECK: No JVD. Patient moves neck without restriction. CARDIO: Rhythm regular. Normal rate. No murmur, rub, or gallop. Pulses equal bilaterally in the upper and lower extremity. No lower extremity edema. PULM: Lungs clear to auscultation in all la. No wheezes, rales, or rhonchi. No conversational dyspnea. No splinting, stridor, or accessory muscle use. GI/: Abdomen is soft and non-tender. Normoactive bowel sounds. EXTREMITIES: Symmetric muscle bulk. No joint swelling. No clubbing, cyanosis, or deformity. SKIN: Warm and dry. Normal turgor. No rash or lesions appreciated. PSYCH: Mood, affect, and interaction is appropriate to the setting. Constitutional Vital Signs, click to edit/add: Last Vital Signs Temp 98.9 F 04/03/23 02:26 Pulse 99 H 04/03/23 02:26 Resp 22 04/03/23 02:26 BP 160/87 H 04/03/23 02:26 Pulse Ox 96 04/03/23 02:26 O2 Del Method Room Air 04/03/23 02:26 Course Vital Signs Vital signs: Vital Signs Temperature 98.9 F 04/03/23 02:26 Pulse Rate 99 H 04/03/23 02:26 Respiratory Rate 22 04/03/23 02:26 Blood Pressure 160/87 H 04/03/23 02:26 Pulse Oximetry 96 04/03/23 02:26 Oxygen Delivery Method Room Air 04/03/23 02:26 Temperature 98.9 F 04/03/23 02:26 Pulse Rate 99 H 04/03/23 02:26 Respiratory Rate 04/03/23 02:26 Blood Pressure 160/87 H 04/03/23 02:26 Pulse Oximetry 96 04/03/23 02:26 Oxygen Delivery Method Room Air 04/03/23 02:26 Medical Decision Making MDM Narrative Medical decision making narrative: 52-year-old female to the emergency department with chief vomiting abdominal pain typical of a pancreatitis flare for her. Vital stable, the patient is afebrile. Her abdominal examination is benign. Basic labs, abdominal series are ordered for evaluation. Symptomatic medications are ordered. CBC is unremarkable. Chemistry without major abnormality. Her lipase is elevated. Abdominal series without acute findings. Patient difficult to control symptoms. She is given two rounds medications. Patient reports that this flare seems more severe than previous and will require admission for her. Patient with long-standing chronic pancreatitis. Will need admission for fluids, pain control. She reports that symptoms typically resolve on their own with some time and treatment. Case discussed with the hospitalist who agreed to admit to her service. Lab Data Labs: Lab Results 04/03/23 Range/Units 02:58 WBC 9.4 (4.0-11.0) 10^3/uL RBC 3.98 L (4.20-5.40) 10^6/uL Hgb 13.0 (12.0-16.0) g/dL Hct 39.0 (36.0-48.0) % MCV 98.0 (81.0-99.0) fL MCH 32.7 (26.7-34.0) pg MCHC 33.3 (29.9-35.2) g/dL RDW 12.5 (11.0-15.0) % Plt Count 225 (150-450) 10^3/uL MPV 10.1 (9.5-13.5) fL Neut % (Auto) 61.2 (43.0-75.0) % Lymph % (Auto) 28.1 (20.5-60.0) % [place] % (Auto) 7.9 (1.7-12.0) % Eos % (Auto) 1.2 (0.9-7.0) % Baso % (Auto) 0.7 (0.2-2.0) % Neut # (Auto) 5.7 (1.4-6.5) 10^3/uL Lymph # (Auto) 2.6 (1.2-3.8) 10^3/uL [place] # (Auto) 0.7 (0.3-0.8) 10^3/uL Eos # (Auto) 0.1 (0.0-0.7) 10^3/uL Baso # (Auto) 0.1 (0.0-0.1) 10^3/uL Abs Immat Gran (auto) 0.08 H (0.00-0.03) 10^3/uL Imm/Tot Granulo (auto) 0.9 H (0.0-0.5) % Sodium 140 (136-145) mmol/L Potassium 3.5 (3.5-5.1) mmol/L Chloride 105 (98-107) mmol/L Carbon Dioxide 29.3 (21.0-32.0) mmol/L Anion Gap 9.2 BUN 6.0 L (7.0-18.0) mg/dL Creatinine 0.95 (0.55-1.02) mg/dL Est GFR ( Amer) >60 (>=60) Est GFR (Non-Af Amer) >60 (>=60) BUN/Creatinine Ratio 6.3 Glucose 98 (74-106) mg/dL Lactate 0.5 (0.4-2.0) mmol/L Calcium 9.6 (8.5-10.1) mg/dL Total Bilirubin 0.2 (0.2-1.0) mg/dL AST 23 (15-37) U/L ALT 21 (14-59) U/L Alkaline Phosphatase 125 H (46-116) U/L Troponin I High Sens 4.8 (4.0-51.3) pg/mL Total Protein 6.7 (6.4-8.2) g/dL Albumin 3.5 (3.4-5.0) g/dL Globulin 3.2 g/dL Albumin/Globulin Ratio 1.1 Lipase 144.0 H (16.0-77.0) U/L Discharge Plan Discharge Chief Complaint: Abdominal Pain Clinical Impression: Chronic pancreatitis, Nausea & vomiting Patient Disposition: Admitted as Observation Time of Disposition Decision: 05:39 Condition: Good Prescriptions / Home Meds: No Action ergocalciferol (vitamin D2) [Vitamin D2] 1,250 mcg (50,000 unit) capsule 50,000 unit PO .weekly Creon 6,000-19,000 -30,000 unit capsule,delayed release(DR/EC) 2 cap PO BID promethazine 25 mg tablet 25 mg PO Q6H PRN (Reason: nausea and vomiting) Qty: 12 0RF oxycodone-acetaminophen [Percocet] 5-325 mg tablet 1 tab PO Q6H PRN (Reason: pain) Qty: 10 0RF hydrocodone-acetaminophen 5-325 mg tablet 1 tab PO Q6H PRN (Reason: pain) Qty: 8 0RF Rx Instructions: DX: R10.9 guaifenesin [Mucinex] 600 mg tablet extended release 12hr 600 mg PO Q12H PRN (Reason: cough) Qty: 10 0RF albuterol sulfate [ProAir HFA] 90 mcg/actuation HFA aerosol inhaler 2 inh inhalation QID PRN (Reason: shortness of breath or wheezing) Qty: 8.5 0RF hydrocodone-acetaminophen 5-325 mg tablet 1 tab PO Q4H PRN (Reason: pain) Qty: 6 0RF oxycodone-acetaminophen [Percocet] 5-325 mg tablet 1 tab PO Q6H PRN (Reason: pain) 2 Days Qty: 10 0RF Rx Instructions: DX: R10.2 famotidine [Pepcid] 20 mg tablet 20 mg PO BID Qty: 10 0RF ondansetron 4 mg tablet,disintegrating 4 mg PO Q6H PRN (Reason: nausea and vomiting) Qty: 12 0RF sucralfate [Carafate] 1 gram tablet 1 g PO Q6H PRN (Reason: abdominal pain) Qty: 12 0RF oxycodone-acetaminophen [Percocet] 5-325 mg tablet 1 tab PO Q6H PRN (Reason: pain) 4 Days Qty: 15 0RF Rx Instructions: R10.9 Referrals: [facility] [Primary Care Provider] - 1 week
[2023-04-03] MEDS: 0.9 % SODIUM CHLORIDE 1,000 ML 200 ML IV ×4 (06:06→20:18)
[2023-04-03] MEDS: HYDROMORPHONE HCL 1 MG/ML CARTRIDGE 0.5 MG IVP ×3 (06:41→15:48)
[2023-04-03] MEDS: FAMOTIDINE/PF 20 MG/2 ML VIAL IV ×2 (08:35→20:17)
[2023-04-03] MEDS: HYDROMORPHONE HCL 1 MG/ML CARTRIDGE IV (08:35)
--- OUTSIDE RECORDS SUMMARY | 2023-04-03 11:16 | XMS_ITS | CCD ---
Author Name Unknown Address [address] [place] [address] Organization [facility] Care Team Providers Care Economics Lecturer Name Role Phone LiAlexander Unavailable LI, KEWA Unavailable Unavailable COPC SACHIN, GENERIC Unavailable Unavailable COPC SACHIN, GENERIC Unavailable Unavailable ALIRIO NEGRO Unavailable Unavailable LI, KEWA Unavailable Unavailable JOANA MENDES Unavailable Unavailable LI, KEWA Unavailable Unavailable ERROL WALTON Unavailable Unavaila ble LI, KEWA Unavailable Unavailable KEERTHI NGUYEN Unavailable Unavailable COPC SACHIN, GENERIC Unavailable Unavailable KEERTHI NGUYEN Unavailable Unavailable LI, KEWA Unavailable Unavailable PHYSICIANS, [facility] Unavailable Unav ailable EUGENIA SHELTON Unavailable Unavailable PHYSICIANS, [facility] Unavailable Unav ailable Unavailable Primary Care Provider UnavailRAJEEV Pino Admitting Unavailable RAJEEV TINOCO Attending Unavailable LiDarrickwa Primary Care Provider Unavailable Primary Care Provider UnavailMarya Guajardo Unavailable NON STAFF Primary Care Provider UnavailDO Keaton Thompson Emergency Provider SALMA Amor Emergency Provider [phone] SALMA Lopez Emergency Provider [phone] Woodrow ALEXANDER, Pineda Espinal Unavailable [phone] [facility], Other Primary Care Provi mathew NON STAFF Primary Care Provider UnavailMD Agustin Varela Emergency Provider DR TRI HANSON Consulting Unavailable ARIC CHAUDHARY Attending Unavailable ARIC CHAUDHARY Admitting Unavailable [facility] Primary Care Unavailable ARIC CHAUDHARY Consulting Unavailable AGUSTIN MADRIGAL Consulting Unavailable YANNI FRASER Attending Unavailable YANNI FRASER Admitting Unavailable [facility] Primary Care Unavailable HEBERT MCPHERSON Consulting Unavailable AMINATA, DR RAJEEV Chan Consulting Unavailable AMINATA, DR RAJEEV Chan Attending Unavailable AMINATA, DR RAJEEV Chan Admitting Unavailable [facility] Primary Care Unavailable GRECARLOS ., ANKIT BOYKIN Consulting [facility] IGGY ., MONIK Attending Unavailable IGGY ., MONIK Admitting Unavailable GRECHNY ., ANKIT BOYKIN [facility] ANNELIESE, NICK Consulting Unavailable JANUSZ ., ARIC Consulting Unavailable AGUSTIN HIGHTOWER Consulting Unavailable ROLAN EUCEDA Consulting Unavailable AMINATA, DR RAJEEV Chan Consulting Unavailable BRIANNA, DR SHARON Silveira Attending [facility] e REINECK, DR SHARON Silveira Admitting [facility] Unavailable BRIANNA, DR SHARON Silveira Consulting [facility] HANS ., NAT Consulting Unavailable HANS ., NAT Consulting Unavailable PAY ., DR MACEDO Attending Unavailable PAY ., DR MACEDO Admitting Unavailable [facility] Primary Care Unavailable ANNELIESE, NICK Consulting Unavailable ANNELIESE, NICK Attending Unavailable ANNELIESE, NICK Admitting Unavailable [facility] Primary Care Unavailable MILADIS BARRERA Consulting Unavailable JANUSZ ., ARIC Attending Unavailable JANUSZ ., ARIC Admitting Unavailable JANUSZ ., ARIC Consulting Unavailable [facility] Primary Care Unavailable ION KRUSE Consulting Unavailable YANNI FRASER Attending Unavailable YANNI FRASER Admitting Unavailable JANNY ., ANKIT BOYKIN [facility]ing [facility] Unavailable LYNNE PERDOMO Consulting Unavailable JANUSZ ., ARIC Attending Unavailable JANUSZ ., ARIC Admitting Unavailable [facility] Primary Care Unavailable JANUSZ ., ARIC Consulting Unavailable DIAB ., ELENITA Consulting Unavailable DIAB ., ELENITA Attending Unavailable DIAB ., ELENITA Admitting Unavailable [facility] Primary Care Unavailable PAY ., DR MACEDO Consulting Unavailable PAY ., DR MACEDO Attending Unavailable PAY ., DR MACEDO Admitting Unavailable [facility] Primary Care Unavailable ANNELIESE, NICK Consulting Unavailable ANNELIESE, NICK Attending Unavailable ANNELIESE, NICK Admitting Unavailable [facility] Primary Care Unavailable AGUSTIN HIGHTOWER Consulting Unavailable AMINATA, DR RAJEEV Chan Consulting Unavailable HAY ., DR GRANT Attending Unavailable HAY ., DR GRANT Admitting Unavailable [facility] Primary Care Unavailable HAY ., DR GRANT Consulting Unavailable [facility], OTHER Primary Care Un available STEVE, SOMASHEKAR G Attending Unavailabl e STEVE, SOMASHEKAR G Referring Unavailabl e [facility] Primary Care Un available STEVE, SOMASHEKAR G Referring Unavailabl e [facility], OTHER Primary Care Un available STEVE, SOMASHEKAR G Referring Unavailabl e STEVE, SOMASHEKAR G Attending Unavailabl e [facility], OTHER Primary Care Un available STEVE, SOMASHEKAR G Referring Unavailabl e STEVE, SOMASHEKAR G Attending Unavailabl e STEVE, SOMASHEKAR G Attending Unavailabl e [facility] Primary Care Un available STEVE, SOMASHEKAR G Referring Unavailabl e [facility], OTHER Primary Care Un available [facility] OTHER Referring Un available STEVE, SOMASHEKAR G Attending Unavailabl e NON STAFF Primary Care Provider Unavailabl e Saffle, [employer] F[employer]ER Nicole N Emergency Provider [phone] Robb Burris Admitting Unavailable Robb Bruris Attending Unavailable NON STAFF Primary Care Unavailable Agustin Llanes Admitting Unavailable Agustin Llanes Attending Unavailable NON STAFF Primary Care Unavailable Nicole Posadas Admitting Unavailable Nicole Posadas Attending Unavailable NON STAFF Primary Care Unavailable SERVICES, [facility] Primary Care Unava ilable [facility] Attending Unavailable [facility] Attending Unavailable [facility] Referring Unavailable [facility], [facility] Primary Care Unava ilable NON STAFF Primary Care Provider Unavailabl e Saffle, [employer] F[employer] Nicole Serrano Emergency Provider [phone] Allergies Allergy Classification Reported Allergen(s) Allergy Type Date of Onset Reaction(s) Facility (18 sources) haloperidol; Translations: [HALOPERIDOL] Propensity to adverse reactions to drug 06-02-19 16 Hives [facility] (20 sources) ibuprofen; Translations: [IBUPROFEN] Propensity to adverse reactions to drug 10-31-19 13 Hives, Swelling [facility] (6 sources) metoclopramide; Translations: [METOCLOPRAMIDE HCL] Propensity to adverse reactions to drug 07-01-19 17 [facility] (6 sources) penicillin g; Translations: [PENICILLIN G] Propensity to adverse reactions to drug 07-25-19 15 Anaphylaxis [facility] (20 sources) traMADol; Translations: [TRAMADOL] Propensity to adverse reactions to drug 07-25-19 15 [facility] (19 sources) morphine; Translations: [MORPHINE] Drug Allergy 07-16-19 18 [facility] (2 sources) Enoxaparin Drug Allergy 08-23-19 20 Itching, Rash [place], [place] (2 sources) Haloperidol Drug Allergy 10-20-19 18 Swelling [place] (14 sources) Penicillins; Translations: [PENICILLINS] Propensity to adverse reactions to drug 10-31-19 13 Anaphylaxis, Swelling [place] (2 sources) Haloperidol; Translations: [Haldol] Drug Allergy 08-10-19 19 Unknown [facility] (8 sources) fentaNYL; Translations: [Fentanyl] Drug Allergy 09-13-19 21 [facility] (7 sources) Ketorolac; Translations: [ketorolac] Drug Allergy 06-13-19 21 [facility] (6 sources) Ketorolac Drug Allergy 12-17-19 22 Hives, Itching [facility] (6 sources) Metoclopramide Drug Allergy 07-20-19 17 Anxiety [facility] (1 source) Ibuprofen Drug Allergy 01-09-20 13 [facility] (1 source) Ketorolac Drug Allergy [facility] (1 source) Morphine Drug Allergy 08-10-19 19 [facility] (1 source) Penicillins Drug allergy (disorder) 01-09-20 13 [facility] (1 source) traMADol Drug Allergy 01-09-20 13 [facility] (1 source) Haloperidol Drug Allergy 11-10-19 23 [facility] (1 source) Ibuprofen Drug Allergy 11-10-19 23 [facility] (1 source) Morphine Drug Allergy 11-10-19 23 [facility] (1 source) Penicillins Drug allergy (disorder) 11-10-19 23 [facility] (1 source) traMADol Drug Allergy 11-10-19 [facility] Medications Current Medications Medication Drug Class(es) Dates Sig (Normalized) Sig (Original) Acetaminophen (1 source) Start: 08-23-2019 acetaminophen (TYLENOL) tablet 650 mg amylase 433941 unt / lipase 54279 unt / protease 25647 unt delayed release oral capsule (9 sources) Start: 12-16-2021 End: 07-16-2022 take 05458-66559 capsules by mouth three times daily Rmqllo-Kxyvxyoy-Czd lase (Creon) 24,000-76,000 -120,000 unit capsule,delayed release(DR/EC) [...] by mouth every week ergocalciferol 1.25 MG (72735 UT) capsule Take 1 capsule by mouth [...] as needed HYDROmorphone (DILAUDID) injection 0.5 mg [place] (No Known Home Meds) (1 source) Start: 10-09-2021 [place] (No Kn own Home Meds) Active October [...] release tablet 5 mg polyethylene glycol 3350 29869 mg powder for oral solution (1 source) [...] 01-28-2022 Chronic Other aftercare (1 source) Other care home (current) drug therapy; Translations: [OTH RESIDENTIAL CURRENT DRUG THERAPY] Onset: 04-01-2022 Episodic Other [...] 04-02-2023 ALT [Catalytic activity/Vol] 11 U/L 7-52 [facility] Albumin [Mass/volume] in Ser um or Plasma by Bromocresol green (BCG) dye binding methoOrdered By: Nicole Posadas on 04-02-2023 Albumin BCG dye [Mass/Vol] 4.2 g/dL 3.5-5.7 [facility] Alkaline phosphatase [Enzyma tic activity/volume] in Serum or PlasmaOrdered By: Nicole Posadas on 04-02-2023 ALP [Catalytic activity/Vol] 101 U/L 34-104 [facility] Aspartate aminotransferase [ Enzymatic activity/volume] in Serum or PlasmaOrdered By: Nicole Posadas on 04-02-2023 AST [Catalytic activity/Vol] 21 U/L 13-39 [facility] Basophils Auto (Bld) [#/Vol] Ordered By: Nicole Posadas on 04-02-2023 Basophils (Bld) [#/Vol] 0.0 10*3/uL 0.0-0.2 [facility] Basophils/100 WBC Auto (Bld) Ordered By: Nicole Posadas on 04-02-2023 Basophils/100 WBC (Bld) 0.2 % . [facility] Bilirubin Test strip Ql (U)O rdered By: Nicole Posadas on 04-02-2023 Bilirubin Ql (U) Negative Negative [facility] Bilirubin.total [Mass/volume ] in Serum or PlasmaOrdered By: Nicole Posadas on 04-02-2023 Bilirubin [Mass/Vol] 0.3 mg/dL 0.3-1.0 [facility] Calcium [Mass/volume] in Ser um or PlasmaOrdered By: Nicole Posadas on 04-02-2023 Calcium [Mass/Vol] 9.7 mg/dL 8.6-10.3 [facility] Carbon dioxide, total [Moles /volume] in Serum or PlasmaOrdered By: Nicole Posadas on 04-02-2023 CO2 [Moles/Vol] 26.3 mmol/L 21.0-31.0 [facility] Chloride [Moles/volume] in S erika or PlasmaOrdered By: Nicole Posadas on 04-02-2023 Chloride [Moles/Vol] 106 mmol/L 98-107 [facility] Color Auto (U)Ordered By: Reshma Posadas on 04-02-2023 Color (U) Yellow Yellow [facility] Creatinine [Mass/volume] in Serum or PlasmaOrdered By: Nicole Posadas on 04-02-2023 Creatinine [Mass/Vol] 0.82 mg/dL 0.60-1.20 [facility] Eosinophils Auto (Bld) [#/Vo l]Ordered By: Nicole Psoadas on 04-02-2023 Eosinophils (Bld) [#/Vol] 0.1 10*3/uL 0.0-0.45 [facility] Eosinophils/100 WBC Auto (Bl d)Ordered By: Nicole Posadas on 04-02-2023 Eosinophils/100 WBC (Bld) 1.7 % . [facility] Erythrocyte distribution wid th Auto (RBC) [Ratio]Ordered By: Nicole [facility] on 04-02-2023 Erythrocyte distribution width (RBC) [Ratio] 13.3 % 11.9-15.3 [facility] Fibrin D-dimer [Presence] in Platelet poor plasma by Latex agglutinationOrdered By: Nicole [facility] on 04-02-2023 Fibrin D-dimer LA Ql (PPP) < 200 ng/mL 0-243 [facility] Comment on above: The reference range for [...] coagulation studies. Please contact the laboratory at [phone] for redraw instructions. Globulin Calc (S) [Mass/Vol] Ordered By: Nicole Posadas on 04-02-2023 Globulin (S) [Mass/Vol] 2.4 g/dL [facility] Glucose [Mass/volume] in Ser um or PlasmaOrdered By: Nicole Posadas 04-02-2023 Glucose [Mass/Vol] 90 mg/dL 70-100 [facility] Comment on above: ADA recommended refe rence rangeRandom Glucose Reference Range is dependent on time and content of last meal. Glucose of more than 200 mg/dL in a nonstressed, ambulatory subject supports the diagnosis of Diabetes Mellitus. Hematocrit Auto (Bld) [Volum e fraction]Ordered By: Nicole Posadas on 04-02-2023 Hematocrit (Bld) [Volume fraction] 41.8 % 34.0-46.4 [facility] Hemoglobin [Mass/volume] in BloodOrdered By: Nicole Posadas on 04-02-2023 Hemoglobin (Bld) [Mass/Vol] 14.2 g/dL 11.8-15.4 [facility] Ketones Auto test strip (U) [Mass/Vol]Ordered By: Nicole Posadas on 04-02-2023 Ketones (U) [Mass/Vol] Negative Negative [facility] Leukocytes [#/volume] correc aurelia for nucleated erythrocytes in Blood by Automated counOrdered By: Nicole Posadas on 04-02-2023 WBC corrected for nucl RBC Auto (Bld) [#/Vol] 6.2 10*3/uL 3.8-11.6 [facility] Lipase [Enzymatic activity/v olume] in Serum or PlasmaOrdered By: Nicole Posadas on 04-02-2023 Lipase [Catalytic activity/Vol] 186.0 U/L 11.0-82.0 [facility] Lymphocytes Auto (Bld) [#/Vo l]Ordered By: Nicole Posadas on 04-02-2023 Lymphocytes (Bld) [#/Vol] 1.8 10*3/uL 1.00-4.8 [facility] Lymphocytes/100 WBC Auto (Bl d)Ordered By: Nicole Posadas on 04-02-2023 Lymphocytes/100 WBC (Bld) 29.2 % . [facility] MCH Auto (RBC) [Entitic mass ]Ordered By: Nicole Posadas on 04-02-2023 MCH (RBC) [Entitic mass] 33.1 pg 24.7-34.3 [facility] MCHC Auto (RBC) [Mass/Vol]Or dered By: Nicole Posadas on 04-02-2023 MCHC (RBC) [Mass/Vol] 34.0 g/dL 32.0-35.0 [facility] MCV Auto (RBC) [Entitic vol] Ordered By: Nicole Posadas on 04-02-2023 MCV (RBC) [Entitic vol] 97.4 fL 80-100 [facility] Monocyte distribution width [Entitic volume] in Blood by AutomatedOrdered By: Nicole Posadas on 04-02-2023 Monocyte distribution width Auto (Bld) [Entitic vol] 17.36 % 0.00-20.00 [facility] Monocytes Auto (Bld) [#/Vol] Ordered By: Nicole Posadas on 04-02-2023 Monocytes (Bld) [#/Vol] 0.6 10*3/uL 0.0-0.8 [facility] Monocytes/100 WBC Auto (Bld) Ordered By: Nicole Posadas on 04-02-2023 Monocytes/100 WBC (Bld) 9.8 % . [facility] Neutrophils Auto (Bld) [#/Vo l]Ordered By: Nicole Posadas on 04-02-2023 Neutrophils (Bld) [#/Vol] 3.6 10*3/uL 1.8-7.7 [facility] Neutrophils/100 WBC Auto (Bl d)Ordered By: Nicole Posadas on 04-02-2023 Neutrophils/100 WBC (Bld) 59.1 % . [facility] Nitrite Test strip Ql (U)Ord ered By: Nicole Posadas on 04-02-2023 Nitrite Ql (U) Negative Negative [facility] No Panel InformationOrdered By: Nicole Posadas on 04-02-2023 Estimated GFR (CKD-EPI) > 60.0 mL/Min [facility] Creatinine Clearance (Chem 62.75 [facility] Nucleated erythrocytes [Pres ence] in Blood by Automated countOrdered By: Nicole Posadas on 04-02-2023 Nucleated RBC Auto Ql (Bld) 0.1 /100{WBC} 0-0.5 [facility] Platelet mean volume Auto (B ld) [Entitic vol]Ordered By: Nicole Posadas on 04-02-2023 Platelet mean volume (Bld) [Entitic vol] 8.3 fL 6.3-10.7 [facility] Platelets Auto (Bld) [#/Vol] Ordered By: Nicole Posadas on 04-02-2023 Platelets (Bld) [#/Vol] 236 10*3/uL 150-450 [facility] Potassium [Moles/volume] in Serum or PlasmaOrdered By: Nicole Posadas on 04-02-2023 Potassium [Moles/Vol] 4.3 mmol/L 3.5-5.1 [facility] Protein Auto test strip (U) [Mass/Vol]Ordered By: Nicole Posadas on 04-02-2023 Protein (U) [Mass/Vol] Negative Negative [facility] Protein [Mass/volume] in Ser um or PlasmaOrdered By: Nicole Posadas on 04-02-2023 Protein [Mass/Vol] 6.6 g/dL 6.4-8.9 [facility] RBC Auto (Bld) [#/Vol]Ordere d By: Nicole Posadas on 04-02-2023 RBC (Bld) [#/Vol] 4.29 10*6/uL 3.60-5.00 [facility] Serum or plasma albumin/glob ulin mass ratioOrdered By: Nicole Posadas on 04-02-2023 Albumin/Globulin [Mass ratio] 1.8 {ratio} [facility] Serum or plasma anion gap de terminationOrdered By: Nicole Posadas on 04-02-2023 Anion gap [Moles/Vol] TNP [facility] Comment on above: Test not performed Sodium [Moles/volume] in Ser um or PlasmaOrdered By: Nicole Posadas on 04-02-2023 Sodium [Moles/Vol] 137 mmol/L 136-145 [facility] Specific gravity Auto test s trip (U) [Rel density]Ordered By: Nicole Posadas on 04-02-2023 Specific gravity (U) [Rel density] 1.022 1.001-1.030 [facility] Troponin I.cardiac [Mass/vol ume] in Serum or Plasma by Detection limit <= 0.01 ng/Ordered By: Nicole Posadas on 04-02-2023 Troponin I.cardiac DL <= 0.01 ng/mL [Mass/Vol] 2.6 pg/mL 0.0-15.0 [facility] Urea nitrogen [Mass/volume] in Serum or PlasmaOrdered By: Nicole Posadas on 04-02-2023 Urea nitrogen [Mass/Vol] 7 mg/dL 09-30 [facility] Urine clarity by refractomet ry automatedOrdered By: Nicole Posadas on 04-02-2023 Clarity Refractometry automated (U) Clear Clear [facility] Urine glucose measurement by automated test strip (mass/volume)Ordered By: Nicole Posadas on 04-02-2023 Glucose Auto test strip (U) [Mass/Vol] Normal mg/dL Normal [facility] Urine hemoglobin detection b y automated test stripOrdered By: Nicole Posadas on 04-02-2023 Hemoglobin Auto test strip Ql (U) Negative Negative [facility] Urine leukocyte esterase det ection by automated test stripOrdered By: Nicole Posadas on 04-02-2023 Leukocyte esterase Auto test strip Ql (U) Negative Negative [facility] Urobilinogen Auto test strip (U) [Mass/Vol]Ordered By: Nicole Posadas on 04-02-2023 Urobilinogen (U) [Mass/Vol] Normal mg/dL Normal [facility] WBC Auto (Bld) [#/Vol]Ordere d By: Nicole Posadas on 04-02-2023 WBC (Bld) [#/Vol] 6.2 10*3/uL 3.8-11.6 [facility] pH Auto test strip (U)Ordere d By: Nicole Posadas on 04-02-2023 pH (U) 5.5 [pH] 5.0-9.0 [facility] CBC AND AUTO DIFFon 03-27-19 ABSOLUTE BASOPHIL 0.1 X10E9/L Normal 0.0-0.2 [facility] Comment on above: Performed By: #### C BCA, CMP, 3040-3, 42002-4, 37688-4, 84484- 9 #### [facility] ([id number]) [address] [place] [address] 26525 ABSOLUTE NEUTROPHIL 7.2 X10E9/L High 1.5-6.[address] [facility] Comment on above: Performed By: #### C BCA, CMP, 3040-3, 10894-5, 62504-8, 72126- 9 #### [facility] ([id number]) [address] [place] [address] 30718 Basophils/100 WBC (Bld) 0.6 % Normal [facility] Comment on above: Performed By: #### C BCA, CMP, 3040-3, 21495-7, 17466-1, 79934- 9 #### [facility] ([id number]) [address] [place] [address] 98190 Eosinophils (Bld) [#/Vol] 0.0 10*3/uL Normal 0.0-0.4 [facility] Comment on above: Performed By: #### C BCA, CMP, 3040-3, 86828-8, 02618-2, 23990- 9 #### [facility] ([id number]) [address] [place] [address] 75484 Eosinophils/100 WBC (Bld) 0.1 % Normal [facility] Comment on above: Performed By: #### C BCA, CMP, 3040-3, 34503-8, 47129-2, 52092- 9 #### [facility] ([id number]) [address] [place] [address] 35775 Erythrocyte distribution width (RBC) [Ratio] 13.7 % Normal 11.5-15.0 [facility] Comment on above: Performed By: #### C BCA, CMP, 3040-3, 71560-1, 64323-7, 17978- 9 #### [facility] ([id number]) [address] [place] [address] 48976 Hematocrit (Bld) [Volume fraction] 40.4 % Normal 35-47 [facility] Comment on above: Performed By: #### C BCA, CMP, 3040-3, 16493-5, 70730-7, 19185- 9 #### [facility] ([id number]) [address] [place] [address] 56809 Hemoglobin (Bld) [Mass/Vol] 13.8 g/dL Normal 11.7-15.5 [facility] Comment on above: Performed By: #### C EZEQUIEL, CMP, 3040-3, 82409-1, 91590-9, 29487- #### [facility] ([id number]) [address] [place] [address] 85161 Lymphocytes (Bld) [#/Vol] 1.7 10*3/uL Normal 1.0-3.5 [facility] Comment on above: Performed By: #### C EZEQUILE, CMP, 3040-3, 84738-6, 25852-0, 75319- 9 #### [facility] ([id number]) [address] [place] [address] 03041 Lymphocytes/100 WBC (Bld) 17.8 % Normal [facility] Comment on above: Performed By: #### C BCA, CMP, 3040-3, 98147-6, 25197-0, 37670- 9 #### [facility] ([id number]) [address] [place] [address] 96275 MCH (RBC) [Entitic mass] 33.0 pg Normal 27-34 [facility] Comment on above: Performed By: #### C BCA, CMP, 3040-3, 79194-0, 63301-6, 92425- 9 #### [facility] ([id number]) [address] [place] [address] 05915 MCHC (RBC) [Mass/Vol] 34.1 g/dL Normal 32-36 [facility] Comment on above: Performed By: #### C BCA, CMP, 3040-3, 56292-4, 33245-6, 66732- 9 #### [facility] ([id number]) [address] [place] [address] 22281 MCV (RBC) [Entitic vol] 97 fL Normal 80-100 [facility] Comment on above: Performed By: #### C BCA, CMP, 3040-3, 16761-5, 14254-3, 05676- 9 #### [facility] ([id number]) [address] [place] [address] 74418 Monocytes (Bld) [#/Vol] 0.8 10*3/uL Normal 0-0.9 [facility] Comment on above: Performed By: #### C BCA, CMP, 3040-3, 26754-0, 19080-9, 92404- 9 #### [facility] ([id number]) [address] [place] [address] 77060 Monocytes/100 WBC (Bld) 7.8 % Normal [facility] Comment on above: Performed By: #### C BCA, CMP, 3040-3, 41078-6, 18609-0, 37780- 9 #### [facility] ([id number]) [address] [place] [address] 69119 Neutrophils/100 WBC (Bld) 73.7 % Normal [facility] Comment on above: Performed By: #### C BCA, CMP, 3040-3, 36170-0, 17474-0, 16038- 9 #### [facility] ([id number]) [address] [place] [address] 46280 Platelet mean volume (Bld) [Entitic vol] 7.6 fL Normal 7-12 [facility] Comment on above: Performed By: #### C BCA, CMP, 3040-3, 58056-6, 67595-8, 10748- 9 #### [facility] ([id number]) [address] [place] [address] 39194 Platelets (Bld) [#/Vol] 269 10*3/uL Normal 150-450 [facility] Comment on above: Performed By: #### C BCA, CMP, 3040-3, 44429-4, 65836-9, 90363- 9 #### [facility] ([id number]) [address] [place] [address] 82327 RBC COUNT 4.17 X10E12/L Normal 3.80-5.20 [facility] Comment on above: Performed By: #### C BCA, CMP, 3040-3, 07388-8, 14659-1, 30564- 9 #### [facility] ([id number]) [address] [place] [address] 07863 WBC (Bld) [#/Vol] 9.8 10*3/uL Normal 4.0-11.0 [facility] Comment on above: Performed By: #### C BCA, CMP, 3040-3, 29600-0, 03283-2, 51915- 9 #### [facility] ([id number]) [address] [place] [address] 05848 COMPREHENSIVE METABOLIC PANE Nimesh 03-27-2023 Albumin [Mass/Vol] 4.6 g/dL Normal 3.2-5.3 [facility] Comment on above: Performed By: #### C BCA, CMP, 3040-3, 40862-7, 61278-7, 07046- 9 #### [facility] ([id number]) [address] [place] [address] 38905 ALP [Catalytic activity/Vol] 125 U/L Normal 39-130 [facility] Comment on above: Performed By: #### C BCA, CMP, 3040-3, 08113-1, 30222-7, 23308- 9 #### [facility] ([id number]) [address] [place] [address] 43384 ALT [Catalytic activity/Vol] 17 U/L Normal 0-31 [facility] Comment on above: Performed By: #### C BCA, CMP, 3040-3, 65117-6, 01214-6, 16259- 9 #### [facility] ([id number]) [address] [place] [address] 19138 Anion gap [Moles/Vol] 10 mmol/L Normal 5-15 [facility] Comment on above: Performed By: #### C BCA, CMP, 3040-3, 85583-6, 04158-2, 61890- 9 #### [facility] ([id number]) [address] [place] [address] 80874 AST [Catalytic activity/Vol] 27 U/L Normal 0-41 [facility] Comment on above: Performed By: #### C BCA, CMP, 3040-3, 39133-6, 28537-5, 86906- 9 #### [facility] ([id number]) [address] [place] [address] 78790 Bilirubin [Mass/Vol] 0.4 mg/dL Normal 0.3-1.[address] [facility] Comment on above: Performed By: #### C BCA, CMP, 3040-3, 85109-5, 45046-6, 48224- 9 #### [facility] ([id number]) [address] [place] [address] 06252 Calcium [Mass/Vol] 10.4 mg/dL Normal 8.5-10.5 [facility] Comment on above: Performed By: #### C BCA, CMP, 3040-3, 27196-1, 64864-9, 71796- 9 #### [facility] ([id number]) [address] [place] [address] 44168 Chloride [Moles/Vol] 103 mmol/L Normal 98-[address] [facility] Comment on above: Performed By: #### C BCA, CMP, 3040-3, 90561-1, 56680-1, 38804- 9 #### [facility] ([id number]) [address] [place] [address] 18416 CO2 [Moles/Vol] 25 mmol/L Normal 22-32 [facility] Comment on above: Performed By: #### C BCA, CMP, 3040-3, 97275-9, 11273-9, 24161- 9 #### [facility] ([id number]) [address] [place] [address] 13936 Creatinine [Mass/Vol] 0.96 mg/dL Normal 0.40-1.00 [facility] Comment on above: Result Comment: METH OD TRACEABLE TO IDMS STANDARD Performed By: #### C BCA, CMP, 3040-3, 92554-7, 14077-2, 07460-6 #### [facility] ([id number]) [address] [place] [address] 15452 GFR/1.73 sq M.predicted among non-blacks MDRD (S/P/Bld) [Vol rate/Area] 71 mL/min/{1.73_m2} Normal >59 [facility] Comment on above: Result Comment: Reported eGFR is based on the CKD-EPI 2020 equation that does not use a race coefficient. Performed By: #### C BCA, CMP, 3040-3, 11141-0, 57352-6, 36051-6 #### [facility] ([id number]) [address] [place] [address] 85680 Glucose [Mass/Vol] 97 mg/dL Normal 65-99 [facility] Comment on above: Performed By: #### C BCA, CMP, 3040-3, 03210-1, 91991-1, 91917- 9 #### [facility] ([id number]) [address] [place] [address] 76433 Potassium [Moles/Vol] 4.2 mmol/L Normal 3.5-5.0 [facility] Comment on above: Performed By: #### C BCA, CMP, 3040-3, 31770-2, 70949-3, 80658- 9 #### [facility] ([id number]) [address] [place] [address] 91627 Protein [Mass/Vol] 7.4 g/dL Normal 6.0-8.0 [facility] Comment on above: Performed By: #### C BCA, CMP, 3040-3, 61167-9, 74950-9, 86270- 9 #### [facility] ([id number]) [address] [place] [address] 70964 Sodium [Moles/Vol] 138 mmol/L Normal 134-146 [facility] Comment on above: Performed By: #### C BCA, CMP, 3040-3, 10877-2, 06212-7, 90763- 9 #### [facility] ([id number]) [address] [place] [address] 48981 Urea nitrogen [Mass/Vol] 14 mg/dL Normal 5-23 [facility] Comment on above: Performed By: #### C BCA, CMP, 3040-3, 45131-4, 60652-3, 23376- 9 #### [facility] ([id number]) [address] [place] [address] ABDOMEN AND PELVIS W CONT on [...] Flower MD on 03/27/2023 12:55 AM Normal [facility] LIPASEon 03-27-2023 Lipase [Catalytic activity/Vol] 31 U/L Normal 17-40 [facility] Comment on above: Performed By: #### C BONNIE NIEVES, 3040-3, 38068-6, 89899-2, 9 #### [facility] ([id number]) [address] [place] [address] 10588 Lactate (P richard) [Moles/Vol]o n 03-27-2023 LACTATE W/REFLEX 1.2 mmol/L Normal 0.4-2.0 [facility] Comment on above: Result Comment: Result did not trigger repeat Lactate, re-order if needed. Performed By: #### C BONNIE NIEVES, 3040-3, 04931-1, , #### [facility] ([id number]) [address] [place] [address] 90520 MAGNESIUMon 03-27-2023 Magnesium [Mass/Vol] 2.0 mg/dL Normal 1.8-2.[address] [facility] Comment on above: Performed By: #### C BCA, CMP, 3040-3, 40310-9, 75095-2, 11653- 9 #### [facility] ([id number]) [address] [place] [address] TROPONIN Ion 03-27-2023 Troponin I.cardiac [Mass/Vol] ng/mL Normal 0.00-0.04 [facility] Comment on above: Performed By: #### C BCA, CMP, 3040-3, 16564-3, 74559-9, 62077- 9 #### [facility] ([id number]) [address] [place] [address] Alanine aminotransferase [En zymatic activity/volume] in Serum or PlasmaOrdered By: Nicole Posadas on 11-09-2022 ALT [Catalytic activity/Vol] 12 U/L 7-52 [facility] Albumin [Mass/volume] in Ser um or Plasma by Bromocresol green (BCG) dye binding methoOrdered By: Nicole Posadas on 11-09-2022 Albumin BCG dye [Mass/Vol] 4.4 g/dL 3.5-5.7 [facility] Alkaline phosphatase [Enzyma tic activity/volume] in Serum or PlasmaOrdered By: Nicole Posadas on 11-09-2022 ALP [Catalytic activity/Vol] 126 U/L 34-104 [facility] Aspartate aminotransferase [ Enzymatic activity/volume] in Serum or PlasmaOrdered By: Nicole Posadas on 11-09-2022 AST [Catalytic activity/Vol] 17 U/L 13-39 [facility] Basophils Auto (Bld) [#/Vol] Ordered By: Nicole Posadas on 11-09-2022 Basophils (Bld) [#/Vol] 0.1 10*3/uL 0.0-0.2 [facility] Basophils/100 WBC Auto (Bld) Ordered By: Nicole Posadas on 11-09-2022 Basophils/100 WBC (Bld) 0.9 % . [facility] Bilirubin Test strip Ql (U)O rdered By: Nicolecarito Posadas on 11-09-2022 Bilirubin Ql (U) Negative Negative [facility] Bilirubin.total [Mass/volume ] in Serum or PlasmaOrdered By: Nicole Posadas on 11-09-2022 Bilirubin [Mass/Vol] 0.3 mg/dL 0.3-1.0 [facility] CT abdomen pelvis w conon CT abdomen pelvis w con [facility] [place] [address] [place] [address] CT Scan Report Signed Patient: Chioma Arciniega MR#: [id number] : 1970 Acct:[id number] Age/Sex: 52 / F ADM Date: 11/09/22 Loc: ER Room: Type: [facility] ER Attending Dr: Copies to: Nicole Posadas [...] Rajeev Ulloa M.D.11/09/2022 4:14 PM Dictation Location: [place] [address] Transcribed By: [facility] 11/09/22 1614 Dictated By: Rajeev Ulloa II, MD 11/09/22 1608 Signed By: 11/09/22 1614 Normal [facility] Calcium [Mass/volume] in Ser um or PlasmaOrdered By: Nicole Posadas on 11-09-2022 Calcium [Mass/Vol] 9.7 mg/dL 8.6-10.3 [facility] Carbon dioxide, total [Moles /volume] in Serum or PlasmaOrdered By: Nicole Posadas on 11-09-2022 CO2 [Moles/Vol] 28.6 mmol/L 21.0-31.0 [facility] Chloride [Moles/volume] in S erika or PlasmaOrdered By: Nicole Posadas on 11-09-2022 Chloride [Moles/Vol] 107 mmol/L 98-107 [facility] Color Auto (U)Ordered By: [facility] on 11-09-2022 Color (U) Yellow Yellow [facility] Complete Blood Count Auto Di ffon 11-09-2022 Basophils (Bld) [#/Vol] 0.1 10*3/uL Normal 0.0-0.2 [facility] Comment on above: Result Comment: PERF ORMED BY: [place] [address] PATHOLOGIST [employer] PAULA RODRIGUES M.D. Performed By: #### C BC, LIPASE, CMP #### [facility] [address] [place] [address] Basophils/100 WBC (Bld) 0.9 % Normal . [facility] Comment on above: Performed By: #### C BC, LIPASE, CMP #### [facility] [address] Eosinophils (Bld) [#/Vol] 0.1 10*3/uL Normal 0.0-0.45 [facility] Comment on above: Performed By: #### C BC, LIPASE, CMP #### [facility] [address] Eosinophils/100 WBC (Bld) 1.6 % Normal . [facility] Comment on above: Performed By: #### C BC, LIPASE, CMP #### [address] Erythrocyte distribution width (RBC) [Ratio] 13.6 % Normal 11.9-15.3 [facility] Comment on above: Performed By: #### C BC, LIPASE, CMP #### [address] Hematocrit (Bld) [Volume fraction] 44.4 % Normal 34.0-46.4 [facility] Comment on above: Performed By: #### C BC, LIPASE, CMP #### [address] Hemoglobin (Bld) [Mass/Vol] 14.9 g/dL Normal 11.8-15.4 [facility] Comment on above: Performed By: #### C BC, LIPASE, CMP #### [address] Lymphocytes (Bld) [#/Vol] 2.2 10*3/uL Normal 1.00-4.8 [facility] Comment on above: Performed By: #### C BC, LIPASE, CMP #### [address] Lymphocytes/100 WBC (Bld) 24.0 % Normal . [facility] Comment on above: Performed By: #### C BC, LIPASE, CMP #### [address] MCH (RBC) [Entitic mass] 32.8 pg Normal 24.7-34.3 [facility] Comment on above: Performed By: #### C BC, LIPASE, CMP #### [address] MCV (RBC) [Entitic vol] 98.2 fL Normal 80-100 [facility] Comment on above: Performed By: #### C BC, LIPASE, CMP #### [address] Mean Corpuscular HGB Conc 33.4 g/dL Normal 32.0-35.0 [facility] Comment on above: Performed By: #### C BC, LIPASE, CMP #### [address] Monocytes (Bld) [#/Vol] 0.8 10*3/uL Normal 0.0-0.8 [facility] Comment on above: Performed By: #### C BC, LIPASE, CMP #### [address] Monocytes/100 WBC (Bld) 18.76 % Normal 0.00-20.00 [facility] Comment on above: Performed By: #### C BC, LIPASE, CMP #### [address] Monocytes/100 WBC (Bld) 8.1 % Normal . [facility] Comment on above: Performed By: #### C BC, LIPASE, CMP #### [address] Neutrophils (Bld) [#/Vol] 6.1 10*3/uL Normal 1.8-7.7 [facility] Comment on above: Performed By: #### C BC, LIPASE, CMP #### [address] Neutrophils/100 WBC (Bld) 65.4 % Normal . [facility] Comment on above: Performed By: #### C BC, LIPASE, CMP #### [place] [address] [place] NRBC% 0.0 /100{WBC} Normal 0-0.5 [facility] Comment on above: Performed By: #### C BC, LIPASE, CMP #### [address] Platelet mean volume (Bld) [Entitic vol] 8.3 fL Normal 6.3-10.7 [facility] Comment on above: Performed By: #### C BC, LIPASE, CMP #### [address] Platelets (Bld) [#/Vol] 246 10*3/uL Normal 150-450 [facility] Comment on above: Performed By: #### C BC, LIPASE, CMP #### [address] RBC (Bld) [#/Vol] 4.52 10*6/uL Normal 3.60-5.00 [facility] Comment on above: Performed By: #### C BC, LIPASE, CMP #### [address] WBC (Bld) [#/Vol] 9.3 10*3/uL Normal 3.8-11.6 [facility] Comment on above: Performed By: #### C BC, LIPASE, CMP #### [address] Comprehensive Metabolic Pane nimesh 11-09-2022 Albumin [Mass/Vol] 4.4 g/dL Normal 3.5-5.7 [facility] Comment on above: Performed By: #### C BC, LIPASE, CMP #### [address] Albumin/Globulin [Mass ratio] 1.6 {ratio} Normal [facility] Comment on above: Performed By: #### C BC, LIPASE, CMP #### [address] ALP [Catalytic activity/Vol] 126 U/L High 34-104 [facility] Comment on above: Performed By: #### C BC, LIPASE, CMP #### [facility] [address] ALT [Catalytic activity/Vol] 12 U/L Normal 7-52 [facility] Comment on above: Performed By: #### C BC, LIPASE, CMP #### [facility] [address] Anion gap [Moles/Vol] 8.1 mmol/L Normal 6.0-15.0 [facility] Comment on above: Performed By: #### C BC, LIPASE, CMP #### [facility] [address] AST [Catalytic activity/Vol] 17 U/L Normal 13-39 [facility] Comment on above: Performed By: #### C BC, LIPASE, CMP #### [facility] [address] Bilirubin [Mass/Vol] 0.3 mg/dL Normal 0.3-1.0 [facility] Comment on above: Performed By: #### C BC, LIPASE, CMP #### [facility] [address] [place] [address] [place] Calcium [Mass/Vol] 9.7 mg/dL Normal 8.6-10.3 [facility] Comment on above: Performed By: #### C BC, LIPASE, CMP #### [facility] [address] [place] [address] [place] Chloride [Moles/Vol] 107 mmol/L Normal 98-107 [facility] Comment on above: Performed By: #### C BC, LIPASE, CMP #### [facility] [address] [place] [address] [place] CO2 [Moles/Vol] 28.6 mmol/L Normal 21.0-31.0 [facility] Comment on above: Performed By: #### C BC, LIPASE, CMP #### [facility] [address] Creatinine [Mass/Vol] 0.78 mg/dL Normal 0.60-1.20 [facility] Comment on above: Performed By: #### C BC, LIPASE, CMP #### [facility] [address] Creatinine Clr Calc Pharmacy 69.00 [facility] Comment on above: Performed By: #### C BC, LIPASE, CMP #### [place] [address] [place] GFR/1.73 sq M.predicted MDRD (S/P/Bld) [Vol rate/Area] mL/min/{1.73_m2} [facility] Comment on above: Performed By: #### C BC, LIPASE, CMP #### [address] Globulin (S) [Mass/Vol] 2.7 g/dL [facility] Comment on above: Performed By: #### C BC, LIPASE, CMP #### [address] Glucose [Mass/Vol] 96 mg/dL Normal 70-100 [facility] Comment on above: Result Comment: [facility] Glucose Reference Range is dependent on time and content of last meal. Glucose of more than 200 mg/dL in a nonstressed, ambulatory subject supports the diagnosis of Diabetes Mellitus. ADA recommended reference range Performed By: #### C BC, LIPASE, CMP #### [address] Potassium [Moles/Vol] 3.7 mmol/L Normal 3.5-5.1 [facility] Comment on above: Performed By: #### C BC, LIPASE, CMP #### [address] Protein [Mass/Vol] 7.1 g/dL Normal 6.4-8.9 [facility] Comment on above: Performed By: #### C BC, LIPASE, CMP #### [address] Sodium [Moles/Vol] 140 mmol/L Normal 136-145 [facility] Comment on above: Performed By: #### C BC, LIPASE, CMP #### [address] Urea nitrogen [Mass/Vol] 6 mg/dL Low 7-25 [facility] Comment on above: Performed By: #### C BC, LIPASE, CMP #### [facility] [address] [place] [address] Creatinine [Mass/volume] in Serum or PlasmaOrdered By: Nicole Posadas on 11-09-2022 Creatinine [Mass/Vol] 0.78 mg/dL 0.60-1.20 [facility] ECG 12 lead ECGon 11-09-2022 ECG 12 lead ECG [facility] [place] [address] [place] [address] Electrocardiograph Report Signed Patient: Chioma Arciniega MR#: [id number] : 1970 Acct:[id number] Age/Sex: 52 / F ADM Date: 11/09/22 Loc: ER Room: Type: [facility] [place] Attending Dr: Ordering Provider: Nicole Posadas [...] By Agustin Llanes MD 06/29 0147 Normal [facility] Eosinophils Auto (Bld) [#/Vo l]Ordered By: Nicole Posadas on 11-09-2022 Eosinophils (Bld) [#/Vol] 0.1 10*3/uL 0.0-0.45 [facility] Eosinophils/100 WBC Auto (Bl d)Ordered By: Nicole Posadas on 11-09-2022 Eosinophils/100 WBC (Bld) 1.6 % . [facility] Erythrocyte distribution wid th Auto (RBC) [Ratio]Ordered By: Nicole Posadas on 11-09-2022 Erythrocyte distribution width (RBC) [Ratio] 13.6 % 11.9-15.3 [facility] Globulin Calc (S) [Mass/Vol] Ordered By: Nicole Posadas on 11-09-2022 Globulin (S) [Mass/Vol] 2.7 g/dL [facility] Glucose [Mass/volume] in Ser um or PlasmaOrdered By: Nicole Posadas on 11-09-2022 Glucose [Mass/Vol] 96 mg/dL 70-100 [facility] Comment on above: ADA recommended refe rence rangeRandom Glucose Reference Range is dependent on time and content of last meal. Glucose of more than 200 mg/dL in a nonstressed, ambulatory subject supports the diagnosis of Diabetes Mellitus. Hematocrit Auto (Bld) [Volum e fraction]Ordered By: Nicole [facility] on 11-09-2022 Hematocrit (Bld) [Volume fraction] 44.4 % 34.0-46.4 [facility] Hemoglobin [Mass/volume] in BloodOrdered By: Nicole [facility] on 11-09-2022 Hemoglobin (Bld) [Mass/Vol] 14.9 g/dL 11.8-15.4 [facility] Ketones Auto test strip (U) [Mass/Vol]Ordered By: Nicole [facility] on 11-09-2022 Ketones (U) [Mass/Vol] Negative Negative [facility] Leukocytes [#/volume] correc aurelia for nucleated erythrocytes in Blood by Automated counOrdered By: [facility]-2022 WBC corrected for nucl RBC Auto (Bld) [#/Vol] 9.3 10*3/uL 3.8-11.6 [facility] Lipaseon 11-09-2022 Lipase [Catalytic activity/Vol] 78.0 U/L Normal 11.0-82.0 [facility] Comment on above: Result Comment: PERF ORMED BY: [facility] [address] [place] [address] PATHOLOGIST [employer] PAULA RODRIGUES M.D. Performed By: #### U A #### [facility] [address] [place] [id number] [facility] Lipase [Enzymatic activity/v olume] in Serum or PlasmaOrdered By: Nicole Posadas on 11-09-2022 Lipase [Catalytic activity/Vol] 78.0 U/L 11.0-82.0 [facility] Lymphocytes Auto (Bld) [#/Vo l]Ordered By: Nicole Posadas on 11-09-2022 Lymphocytes (Bld) [#/Vol] 2.2 10*3/uL 1.00-4.8 [facility] Lymphocytes/100 WBC Auto (Bl d)Ordered By: Nicole Posadas on 11-09-2022 Lymphocytes/100 WBC (Bld) 24.0 % . [facility] MCH Auto (RBC) [Entitic mass ]Ordered By: Nicole Posadas on 11-09-2022 MCH (RBC) [Entitic mass] 32.8 pg 24.7-34.3 [facility] MCHC Auto (RBC) [Mass/Vol]Or dered By: Nicole Posadas on 11-09-2022 MCHC (RBC) [Mass/Vol] 33.4 g/dL 32.0-35.0 [facility] MCV Auto (RBC) [Entitic vol] Ordered By: Nicole Posadas on 11-09-2022 MCV (RBC) [Entitic vol] 98.2 fL 80-100 [facility] Monocyte distribution width [Entitic volume] in Blood by AutomatedOrdered By: Nicole Posadas on 11-09-2022 Monocyte distribution width Auto (Bld) [Entitic vol] 18.76 % 0.00-20.00 [facility] Monocytes Auto (Bld) [#/Vol] Ordered By: Nicole Posadas on 11-09-2022 Monocytes (Bld) [#/Vol] 0.8 10*3/uL 0.0-0.8 [facility] Monocytes/100 WBC Auto (Bld) Ordered By: Nicole Posadas on 11-09-2022 Monocytes/100 WBC (Bld) 8.1 % . [facility] Neutrophils Auto (Bld) [#/Vo l]Ordered By: Nicole Posadas on 11-09-2022 Neutrophils (Bld) [#/Vol] 6.1 10*3/uL 1.8-7.7 [facility] Neutrophils/100 WBC Auto (Bl d)Ordered By: Nicole Posadas on 11-09-2022 Neutrophils/100 WBC (Bld) 65.4 % . [facility] Nitrite Test strip Ql (U)Ord ered By: Nicole Posadas on 11-09-2022 Nitrite Ql (U) Negative Negative [facility] No Panel InformationOrdered By: Nicole Posadas on 11-09-2022 Estimated GFR (CKD-EPI) > 60.0 mL/Min [facility] Creatinine Clearance (Chem 69.00 [facility] Nucleated erythrocytes [Pres ence] in Blood by Automated countOrdered By: Nicole Posadas on 11-09-2022 Nucleated RBC Auto Ql (Bld) 0.0 /100{WBC} 0-0.5 [facility] Platelet mean volume Auto (B ld) [Entitic vol]Ordered By: Nicole Posadas on 11-09-2022 Platelet mean volume (Bld) [Entitic vol] 8.3 fL 6.3-10.7 [facility] Platelets Auto (Bld) [#/Vol] Ordered By: Nicole Posadas on 11-09-2022 Platelets (Bld) [#/Vol] 246 10*3/uL 150-450 [facility] Potassium [Moles/volume] in Serum or PlasmaOrdered By: Nicole Posadas on 11-09-2022 Potassium [Moles/Vol] 3.7 mmol/L 3.5-5.1 [facility] Protein Auto test strip (U) [Mass/Vol]Ordered By: Nicole Posadas on 11-09-2022 Protein (U) [Mass/Vol] Negative Negative [facility] Protein [Mass/volume] in Ser um or PlasmaOrdered By: Nicole Posadas on 11-09-2022 Protein [Mass/Vol] 7.1 g/dL 6.4-8.9 [facility] RBC Auto (Bld) [#/Vol]Ordere d By: Nicole Posadas on 11-09-2022 RBC (Bld) [#/Vol] 4.52 10*6/uL 3.60-5.00 [facility] Serum or plasma albumin/glob ulin mass ratioOrdered By: Nicole Posadas on 11-09-2022 Albumin/Globulin [Mass ratio] 1.6 {ratio} [facility] Serum or plasma anion gap de terminationOrdered By: Nicole Posadas on 11-09-2022 Anion gap [Moles/Vol] 8.1 mmol/L 6.0-15.0 [facility] Sodium [Moles/volume] in Ser um or PlasmaOrdered By: Nicole Posadas on 11-09-2022 Sodium [Moles/Vol] 140 mmol/L 136-145 [facility] Specific gravity Auto test s trip (U) [Rel density]Ordered By: Nicole Posadas on 11-09-2022 Specific gravity (U) [Rel density] 1.012 1.001-1.030 [facility] Troponin I High Sensitivityo n 11-09-2022 Troponin I High Sensitivity 3.0 pg/mL Normal 0.0-15.0 [facility] Comment on above: Result Comment: PERF ORMED BY: [place] [address] PATHOLOGIST [employer] PAULA RODRIGUES M.D. Performed By: #### H S TROP #### [address] Troponin I.cardiac [Mass/vol ume] in Serum or Plasma by Detection limit <= 0.01 ng/Ordered By: Nicole Posadas on 11-09-2022 Troponin I.cardiac DL <= 0.01 ng/mL [Mass/Vol] 3.0 pg/mL 0.0-15.0 [facility] Urea nitrogen [Mass/volume] in Serum or PlasmaOrdered By: Nicole Posadas on 11-09-2022 Urea nitrogen [Mass/Vol] 6 mg/dL 7-25 [facility] Urinalysison 11-09-2022 Appearance (U) Clear Normal Clear [facility] Comment on above: Order Comment: Name Collection Type:: Clean-Voided Midstream Performed By: #### U A #### [facility] [address] [place] [address] [place] Bilirubin,Urine Negative Normal Negative [facility] Comment on above: Order Comment: Name Collection Type:: Clean-Voided Midstream Performed By: #### U A #### [facility] [address] [place] [address] [place] Color (U) Yellow Normal Yellow [facility] Comment on above: Order Comment: Name Collection Type:: Clean-Voided Midstream Performed By: #### U A #### [facility] [address] [place] [address] [place] Glucose Ql (U) Normal Normal Normal [facility] Comment on above: Order Comment: Name Collection Type:: Clean-Voided Midstream Performed By: #### U A #### [place] [address] [place] Ketones Ql (U) Negative Normal Negative [facility] Comment on above: Order Comment: Name Collection Type:: Clean-Voided Midstream Performed By: #### U A #### [place] [address] [place] Leukocyte esterase Test strip Ql (U) Negative Normal Negative [facility] Comment on above: Order Comment: Name Collection Type:: Clean-Voided Midstream Performed By: #### U A #### [facility] [address] [place] [address] [place] Nitrite,Urine Negative Normal Negative [facility] Comment on above: Order Comment: Name Collection Type:: Clean-Voided Midstream Performed By: #### U A #### [facility] [address] [place] [address] [place] Occult Blood,Urine Negative Normal Negative [facility] Comment on above: Order Comment: Name Collection Type:: Clean-Voided Midstream Result Comment: PERF ORMED BY: [place] [address] PATHOLOGIST [employer] PAULA RODRIGUES M.D. Performed By: #### U A #### [facility] [address] [place] [address] pH (U) 5.5 [pH] Normal 5.0-9.0 [facility] Comment on above: Order Comment: Name Collection Type:: Clean-Voided Midstream Performed By: #### U A #### [address] Protein,Urine Negative Normal Negative [facility] Comment on above: Order Comment: Name Collection Type:: Clean-Voided Midstream Performed By: #### U A #### [address] Specificy [place],Urine 1.012 Normal 1.001-1.030 [facility] Comment on above: Order Comment: Name Collection Type:: Clean-Voided Midstream Performed By: #### U A #### [address] Urobilinogen,Urine Normal Normal Normal [facility] Comment on above: Order Comment: Name Collection Type:: Clean-Voided Midstream Performed By: #### U A #### [facility] [address] [place] [address] Urine clarity by refractomet ry automatedOrdered By: Nicole Posadas on 11-09-2022 Clarity Refractometry automated (U) Clear Clear [facility] Urine glucose measurement by automated test strip (mass/volume)Ordered By: Nicole Poasdas on 11-09-2022 Glucose Auto test strip (U) [Mass/Vol] Normal mg/dL Normal [facility] Urine hemoglobin detection b y automated test stripOrdered By: Nicole Posadas on 11-09-2022 Hemoglobin Auto test strip Ql (U) Negative Negative [facility] Urine leukocyte esterase det ection by automated test stripOrdered By: Nicole Posadas on 11-09-2022 Leukocyte esterase Auto test strip Ql (U) Negative Negative [facility] Urobilinogen Auto test strip (U) [Mass/Vol]Ordered By: Nicole Posadas on 11-09-2022 Urobilinogen (U) [Mass/Vol] Normal mg/dL Normal [facility] WBC Auto (Bld) [#/Vol]Ordere d By: Nicole Posadas on 11-09-2022 WBC (Bld) [#/Vol] 9.3 10*3/uL 3.8-11.6 [facility] pH Auto test strip (U)Ordere d By: Nicole Posadas on 11-09-2022 pH (U) 5.5 [pH] 5.0-9.0 [facility] UPPER EUSon 08-12-2022 [facility] Gastroenterology Patient Name: Chioma Rainey Procedure Date: 08/12/2022 11:09 AM Date of : 1970 Admit Type: Outpatient Age: 52 Room: EUS Proc Room 01 Gender: Female Note Status: Finalized Attending MD: Sabrina Dee MD, MPH, [id number] Procedure: Upper EUS Indications: Chronic pancreatitis, Epigastric abdominal pain, Celiac plexus block for pain secondary to chronic pancreatitis, Dysphagia, Follow-up of esophageal stenosis, For therapy of esophageal stenosis Providers: Sabrina Dee MD, MPH (Doctor), Kolby Gifford RN (Nurse), Elba Faustin (Nurse), Mary Gaviria, Board Hammer Operator (Board Hammer Operator) Referring MD: Alexander Nichols MD (Referring [...] by the physician, the nurse and the client portfolio manager in the procedure room. Mental Status Examination: [...] abnor (more content not included)... LAB, U [facility] Radiology Study observation (narrative) [facility] AMYLASEon 06-13-2022 Amylase [Catalytic activity/Vol] 92 U/L Normal 25-115 [facility] Comment on above: Performed By: #### L IPA, CMP, CRP, NAT #### [facility] [address] [place] [address] Dr. Keturah Fisher CBC AUTO DIFFon 06-13-2022 BASO # 0.1 103/ul Normal 0.0-0.1 [facility] Comment on above: Performed By: #### L IPA, CMP, CRP, NAT #### [facility] [address] [place] [address] Dr. Keturah Fisher Basophils/100 WBC (Bld) 0.7 % Normal 0.2-2.0 [facility] Comment on above: Performed By: #### L IPA, CMP, CRP, NAT #### [facility] [address] [place] [address] Dr. Keturah Fisher EO # 0.1 103/ul Normal 0.0-0.7 [facility] Comment on above: Performed By: #### L IPA, CMP, CRP, NAT #### [facility] [address] [place] [address] Dr. Keturah Fisher Eosinophils/100 WBC (Bld) 1.1 % Normal 0.9-7.0 [facility] Comment on above: Performed By: #### L IPA, CMP, CRP, NAT #### [facility] [address] [place] [address] Dr. Keturah Fisher Erythrocyte distribution width (RBC) [Ratio] 13.0 % Normal 11.0-15.0 [facility] Comment on above: Performed By: #### L IPA, CMP, CRP, NAT #### [facility] [address] [place] [address] Dr. Keturah Fisher Hematocrit (Bld) [Volume fraction] 40.5 % Normal 36.0-48.0 [facility] Comment on above: Performed By: #### L IPA, CMP, CRP, NAT #### [facility] [address] [place] [address] Dr. Keturah Fisher Hemoglobin (Bld) [Mass/Vol] 13.9 g/dL Normal 12.0-16.0 [facility] Comment on above: Performed By: #### L IPA, CMP, CRP, NAT #### [facility] [address] [place] [address] Dr. Keturah Fisher IG # 0.03 10e3/ul Normal 0.00-0.03 [facility] Comment on above: Performed By: #### L IPA, CMP, CRP, NAT #### [facility] [address] [place] [address] Dr. Keturah Fisher IG % 0.3 % Normal 0.0-0.5 [facility] Comment on above: Performed By: #### L IPA, CMP, CRP, NAT #### [facility] [address] [place] [address] Dr. Keturah Fisher LYMPH # 2.9 103/ul Normal 1.2-3.8 [facility] Comment on above: Performed By: #### L IPA, CMP, CRP, NAT #### [facility] [address] [place] [address] Dr. Keturah Fisher Lymphocytes/100 WBC (Bld) 25.0 % Normal 20.5-60.0 [facility] Comment on above: Performed By: #### L IPA, CMP, CRP, NAT #### [facility] [address] [place] [address] Dr. Keturah Fisher MANUAL DIFF REQ NO Normal [facility] Comment on above: Performed By: #### L IPA, CMP, CRP, NAT #### [facility] [address] [place] [address] Dr. Keturah Fisher MCH (RBC) [Entitic mass] 33.3 pg Normal 26.7-34.0 [facility] Comment on above: Performed By: #### L IPA, CMP, CRP, NAT #### [facility] [address] [place] [address] Dr. Keturah Fisher MCHC (RBC) [Mass/Vol] 34.3 g/dL Normal 29.9-35.2 [facility] Comment on above: Performed By: #### L IPA, CMP, CRP, NAT #### [facility] [address] [place] [address] Dr. Keturah Fisher MCV (RBC) [Entitic vol] 96.9 fL Normal 81.0-99.0 [facility] Comment on above: Performed By: #### L IPA, CMP, CRP, NAT #### [facility] [address] [place] [address] Dr. Keturah Fisher MONO # 0.7 103/ul Normal 0.3-0.8 [facility] Comment on above: Performed By: #### L IPA, CMP, CRP, NAT #### [facility] [address] [address] [address] Keturah Fisher Monocytes/100 WBC (Bld) 5.6 % Normal 1.7-12.0 [facility] Comment on above: Performed By: #### L IPA, CMP, CRP, NAT #### [facility] [address] [place] [address] Dr. Keturah Fisher NEUT # 7.8 103/ul Critically high 1.4-6.5 [facility] Comment on above: Performed By: #### L IPA, CMP, CRP, NAT #### [facility] [address] [address] [address] Keturah Fisher Neutrophils/100 WBC (Bld) 67.3 % Normal 43.0-75.0 [facility] Comment on above: Performed By: #### L IPA, CMP, CRP, NAT #### [facility] [address] [place] [address] Dr. Keturah Fisher Platelet mean volume (Bld) [Entitic vol] 9.5 fL Normal 9.5-13.5 [facility] Comment on above: Performed By: #### L IPA, CMP, CRP, NAT #### [facility] [address] [place] [address] Dr. Keturah Fisher PLT 227 103/ul Normal 150-450 [facility] Comment on above: Performed By: #### L IPA, CMP, CRP, NAT #### [facility] [address] [place] [address] Dr. Keturah Fisher RBC 4.18 106/ul Critically low 4.20-5.40 [facility] Comment on above: Performed By: #### L IPA, CMP, CRP, NAT #### [facility] [address] [place] [address] Dr. Keturah Fisher WBC 11.5 103/ul Critically high 4.0-11.0 [facility] Comment on above: Performed By: #### L IPA, CMP, CRP, NAT #### [facility] [address] [place] [address] Dr. Keturah Fisher LIPASEon 06-13-2022 Lipase [Catalytic activity/Vol] 168.0 U/L Normal 73.0-393.0 [facility] Comment on above: Performed By: #### L IPA, CMP, CRP, NAT #### [facility] [address] [place] [address] Dr. Keturah Fisher PROF 14(COMP METB)on 023 Albumin [Mass/Vol] 3.6 g/dL Normal 3.4-5.0 [facility] Comment on above: Performed By: #### L IPA, CMP, CRP, NAT #### [facility] [address] [place] [address] Dr. Keturah Fisher Albumin/Globulin [Mass ratio] 1.1 {ratio} Normal [facility] Comment on above: Performed By: #### L IPA, CMP, CRP, NAT #### [facility] [address] [place] [address] Dr. Keturah Fisher ALP [Catalytic activity/Vol] 132 U/L Critically high 46-116 [facility] Comment on above: Performed By: #### L IPA, CMP, CRP, NAT #### [facility] [address] [place] [address] Dr. Keturah Fisher ALT [Catalytic activity/Vol] 20 U/L Normal 14-59 [facility] Comment on above: Performed By: #### L IPA, CMP, CRP, NAT #### [facility] [address] [place] [address] Dr. Keturah Fisher Anion gap [Moles/Vol] 13.7 mmol/L Normal [facility] Comment on above: Performed By: #### L IPA, CMP, CRP, NAT #### [facility] [address] [place] [address] Dr. Keturah Fisher AST [Catalytic activity/Vol] 19 U/L Normal 15-37 [facility] Comment on above: Performed By: #### L IPA, CMP, CRP, NAT #### [facility] [address] [place] [address] Dr. Keturah Fisher Bilirubin [Mass/Vol] 0.1 mg/dL Critically low 0.2-1.0 [facility] Comment on above: Performed By: #### L IPA, CMP, CRP, NAT #### [facility] [address] [place] [address] Dr. Keturah Fisher Calcium [Mass/Vol] 10.1 mg/dL Normal 8.5-10.1 [facility] Comment on above: Performed By: #### L IPA, CMP, CRP, NAT #### [facility] [address] [place] [address] Dr. Keturah Fisher Chloride [Moles/Vol] 104 mmol/L Normal 98-107 [facility] Comment on above: Performed By: #### L IPA, CMP, CRP, NAT #### [facility] [address] [place] [address] Dr. Keturah Fisher CO2 [Moles/Vol] 26.7 mmol/L Normal 21.0-32.0 [facility] Comment on above: Performed By: #### L IPA, CMP, CRP, NAT #### [facility] [address] [place] [address] Dr. Keturah Fisher Creatinine [Mass/Vol] 0.83 mg/dL Normal 0.55-1.02 [facility] Comment on above: Performed By: #### L IPA, CMP, CRP, NAT #### [facility] [address] [place] [address] Dr. Keturah Fisher EGFR-AF KENYAN >60 Normal >=60 [facility] Comment on above: Performed By: #### L IPA, CMP, CRP, NAT #### [facility] [address] [place] [address] Dr. Keturah Fisher EGFR-NON AF KENYAN >60 Normal >=60 [facility] Comment on above: Performed By: #### L IPA, CMP, CRP, NAT #### [facility] [address] [place] [address] Dr. Keturah Fisher Globulin (S) [Mass/Vol] 3.4 g/dL Normal [facility] Comment on above: Performed By: #### L IPA, CMP, CRP, NAT #### [facility] [address] [place] [address] Dr. Keturah Fisher Glucose [Mass/Vol] 115 mg/dL Critically high 74-106 [facility] Comment on above: Performed By: #### L IPA, CMP, CRP, NAT #### [facility] [address] [place] [address] Dr. Keturah Fisher Potassium [Moles/Vol] 3.4 mmol/L Critically low 3.5-5.1 [facility] Comment on above: Performed By: #### L IPA, CMP, CRP, NAT #### [facility] [address] [place] [address] Dr. Keturah Fisher Protein [Mass/Vol] 7.0 g/dL Normal 6.4-8.2 [facility] Comment on above: Performed By: #### L IPA, CMP, CRP, NAT #### [facility] [address] [place] [address] Dr. Keturah Fisher Sodium [Moles/Vol] 141 mmol/L Normal 136-145 [facility] Comment on above: Performed By: #### L IPA, CMP, CRP, NAT #### [facility] [address] [place] [address] Dr. Keturah Fisher Urea nitrogen [Mass/Vol] 9.0 mg/dL Normal 7.0-18.0 [facility] Comment on above: Performed By: #### L IPA, CMP, CRP, NAT #### [facility] [address] [place] [address] Dr. Keturah Fisher Urea nitrogen/Creatinine [Mass ratio] 10.8 mg/mg Normal [facility] Comment on above: Performed By: #### L IPA, CMP, CRP, NAT #### [facility] [address] [place] [address] Dr. Keturah Fisher XR ABD FLAT UP_PA [...] ION KRUSE Date: 2022-06-13 17:10 Normal [facility] AMYLASEon 03-29-2022 Amylase [Catalytic activity/Vol] 141 U/L Critically high 25-115 [facility] Comment on above: Performed By: #### L IVER, LIPA, BMP, NAT ####[facility] [address] [address]Dr. Keturah Fisher CBC AUTO DIFFon 03-29-2022 BASO # 0.1 103/ul Normal 0.0-0.1 [facility] Comment on above: Performed By: #### L IPA, CMP, CRP, NAT #### [facility] [address] [address] [address] Keturah Fisher Basophils/100 WBC (Bld) 0.6 % Normal 0.2-2.0 [facility] Comment on above: Performed By: #### L IPA, CMP, CRP, NAT #### [facility] [address] [address] [address] Keturah Fisher EO # 0.1 103/ul Normal 0.0-0.7 [facility] Comment on above: Performed By: #### L IPA, CMP, CRP, NAT #### [facility] [address] [address] [address] Keturah Fisher Eosinophils/100 WBC (Bld) 0.7 % Critically low 0.9-7.0 [facility] Comment on above: Performed By: #### L IPA, CMP, CRP, NAT #### [facility] [address] [address] [address] Keturah Fisher Erythrocyte distribution width (RBC) [Ratio] 12.9 % Normal 11.0-15.0 [facility] Comment on above: Performed By: #### L IPA, CMP, CRP, NAT #### [facility] [address] [address] [address] Keturah Fisher Hematocrit (Bld) [Volume fraction] 39.7 % Normal 36.0-48.0 [facility] Comment on above: Performed By: #### L IPA, CMP, CRP, NAT #### [facility] [address] [place] [address] Dr. Keturah Fisher Hemoglobin (Bld) [Mass/Vol] 14.7 g/dL Normal 12.0-16.0 [facility] Comment on above: Performed By: #### L IPA, CMP, CRP, NAT #### [facility] [address] [place] [address] Dr. Keturah Fisher IG # 0.04 10e3/ul Critically high 0.00-0.03 [facility] Comment on above: Performed By: #### L IPA, CMP, CRP, NAT #### [facility] [address] [place] [address] Dr. Keturah Fisher IG % 0.4 % Normal 0.0-0.5 [facility] Comment on above: Performed By: #### L IPA, CMP, CRP, NAT #### [facility] [address] [place] [address] Dr. Keturah Fisher LYMPH # 2.1 103/ul Normal 1.2-3.8 [facility] Comment on above: Performed By: #### L IPA, CMP, CRP, NAT #### [facility] [address] [place] [address] Dr. Keturah Fisher Lymphocytes/100 WBC (Bld) 21.2 % Normal 20.5-60.0 [facility] Comment on above: Performed By: #### L IPA, CMP, CRP, NAT #### [facility] [address] [place] [address] Dr. Keturah Fisher MANUAL DIFF REQ NO Normal [facility] Comment on above: Performed By: #### L IPA, CMP, CRP, NAT #### [facility] [address] [place] [address] Dr. Keturah Fisher MCH (RBC) [Entitic mass] 33.0 pg Normal 26.7-34.0 [facility] Comment on above: Performed By: #### L IPA, CMP, CRP, NAT #### [facility] [address] [place] [address] Dr. Keturah Fisher MCHC (RBC) [Mass/Vol] 37.0 g/dL Critically high 29.9-35.2 [facility] Comment on above: Performed By: #### L IPA, CMP, CRP, NAT #### [facility] [address] [place] [address] Dr. Keturah Fisher MCV (RBC) [Entitic vol] 89.0 fL Normal 81.0-99.0 [facility] Comment on above: Performed By: #### L IPA, CMP, CRP, NAT #### [facility] [address] [place] [address] Dr. Keturah Fisher MONO # 1.0 103/ul Critically high 0.3-0.[address] [facility] Comment on above: Performed By: #### L IPA, CMP, CRP, NAT #### [facility] [address] [place] [address] Dr. Keturah Fisher Monocytes/100 WBC (Bld) 10.3 % Normal 1.7-12.0 [facility] Comment on above: Performed By: #### L IPA, CMP, CRP, NAT #### [facility] [address] [place] [address] Dr. Keturah Fisher NEUT # 6.5 103/ul Normal 1.4-6.5 [facility] Comment on above: Performed By: #### L IPA, CMP, CRP, NAT #### [facility] [address] [place] [address] Dr. Keturah Fisher Neutrophils/100 WBC (Bld) 66.8 % Normal 43.0-75.0 [facility] Comment on above: Performed By: #### L IPA, CMP, CRP, NAT #### [facility] [address] [place] [address] Dr. Keturah Fisher Platelet mean volume (Bld) [Entitic vol] 9.2 fL Critically low 9.5-13.5 [facility] Comment on above: Performed By: #### L IPA, CMP, CRP, NAT #### [facility] [address] [place] [address] Dr. Keturah Fisher PLT 229 103/ul Normal 150-450 [facility] Comment on above: Performed By: #### L IPA, CMP, CRP, NAT #### [facility] [address] [address] [address] Keturah Fisher RBC 4.46 106/ul Normal 4.20-5.40 [facility] Comment on above: Performed By: #### L IPA, CMP, CRP, NAT #### [facility] [address] [address] [address] Keturah Fisher WBC 9.7 103/ul Normal 4.0-11.0 [facility] Comment on above: Performed By: #### L IPA, CMP, CRP, NAT #### [facility] [address] [place] [address] Dr. Keturah Fisher LACTATE/LACTIC ACIDon 2022 Lactate [Moles/Vol] 0.5 mmol/L Normal 0.4-1.9 [facility] Comment on above: Performed By: #### L IPA, CMP, CRP, NAT #### [facility] [address] [address] [address] Keturah Fisher LIPASEon 03-29-2022 Lipase [Catalytic activity/Vol] 308.0 U/L Normal 73.0-393.0 [facility] Comment on above: Performed By: #### L IVER, LIPA, BMP, NAT ####[facility] [address] [address]Dr. Keturah Fisher LIVER PROFILEon 03-29-2022 Albumin [Mass/Vol] 3.3 g/dL Critically low 3.4-5.0 [facility] Comment on above: Performed By: #### L IVER, LIPA, BMP, NAT ####[facility] [address] [address]Dr. Keturah Fisher Albumin/Globulin [Mass ratio] 0.8 {ratio} Normal [facility] Comment on above: Performed By: #### L IVER, LIPA, BMP, NAT ####[facility] [address] [address]Dr. Keturah Fisher ALP [Catalytic activity/Vol] 182 U/L Critically high 46-116 [facility] Comment on above: Performed By: #### L IVER, LIPA, BMP, NAT ####[facility] [address] [address]Dr. Keturah Fisher ALT [Catalytic activity/Vol] 16 U/L Normal 14-59 [facility] Comment on above: Performed By: #### L IVER, LIPA, BMP, NAT ####[facility] [address] [address]Dr. Keturah Fisher AST [Catalytic activity/Vol] 26 U/L Normal 15-37 [facility] Comment on above: Performed By: #### L IVER, LIPA, BMP, NAT ####[facility] [address] [address]Dr. Keturah Fisher BILI, CONJUGATED 0.0 mg/dL Normal 0.0-0.2 [facility] Comment on above: Performed By: #### L IVER, LIPA, BMP, NAT ####[facility] [address] [place], [place] [address]Dr. Keturah Fisher Bilirubin [Mass/Vol] 0.3 mg/dL Normal 0.2-1.0 [facility] Comment on above: Performed By: #### L IVER, LIPA, BMP, NAT ####[facility] [address] [address]Dr. Keturah Fisher Globulin (S) [Mass/Vol] 3.9 g/dL Normal [facility] Comment on above: Performed By: #### L IVER, LIPA, BMP, NAT ####[facility] [address] [address]Dr. Keturah Fisher Protein [Mass/Vol] 7.2 g/dL Normal 6.4-8.2 [facility] Comment on above: Performed By: #### L IVER, LIPA, BMP, NAT ####[facility] [address] [address]Dr. Keturah Fisher PROF CHEM 8 (BAS METB)on Anion gap [Moles/Vol] 14.6 mmol/L Normal [facility] Comment on above: Performed By: #### L IVER, LIPA, BMP, NAT ####[facility] [address] [address]Dr. Keturah Fisher Calcium [Mass/Vol] 10.1 mg/dL Normal 8.5-10.1 [facility] Comment on above: Performed By: #### L IVER, LIPA, BMP, NAT ####[facility] [address] [address]Dr. Keturah Fisher Chloride [Moles/Vol] 104 mmol/L Normal 98-107 [facility] Comment on above: Performed By: #### L IVER, LIPA, BMP, NAT ####[facility] [address] [place], [place] [address]Dr. Keturah Fisher CO2 [Moles/Vol] 24.8 mmol/L Normal 21.0-32.0 [facility] Comment on above: Performed By: #### L IVER, LIPA, BMP, NAT ####[facility] [address] [place], [place] [address]Dr. Keturah Fisher Creatinine [Mass/Vol] 0.61 mg/dL Normal 0.55-1.02 [facility] Comment on above: Performed By: #### L IVER, LIPA, BMP, NAT ####[facility] [address] [address]Dr. Keturah Fisher EGFR-AF KENYAN >60 Normal >=60 [facility] Comment on above: Performed By: #### L IVER, LIPA, BMP, NAT ####[facility] [address] [address]Dr. Keturah Fisher EGFR-NON AF KENYAN >60 Normal >=60 [facility] Comment on above: Performed By: #### L IVER, LIPA, BMP, NAT ####[facility] [address] [address]Dr. Keturah Fisher Glucose [Mass/Vol] 98 mg/dL Normal 74-106 [facility] Comment on above: Performed By: #### L IVREBECA HOPEA, BMP, NAT ####[facility] [address] [address]Dr. Keturah Fisher Potassium [Moles/Vol] 4.4 mmol/L Normal 3.5-5.1 [facility] Comment on above: Performed By: #### L IVHERMINIA LIPA BMP, NAT ####[facility] [facility] [id number] [place] [address]Dr. Keturah Fisher Sodium [Moles/Vol] 139 mmol/L Normal 136-145 [facility] Comment on above: Performed By: #### L ROB CHIN BMP, NAT ####[facility] [id number] [place] [address]Dr. Keturah Fisher Urea nitrogen [Mass/Vol] 7.0 mg/dL Normal 7.0-18.0 [facility] Comment on above: Performed By: #### ROB DOUGHERTY BMP, NAT ####[facility] [id number] [place] [address]Dr. Keturah Fisher Urea nitrogen/Creatinine [Mass ratio] 11.5 mg/mg Normal [facility] Comment on above: Performed By: #### ROB DOUGHERTY BMP, NAT ####[facility] [id number] [place] [address]Dr. Keturah Fisher Albumin [Mass/volume] in Ser um or PlasmaOrdered By: Agustin Llanes on 03-22-2022 Albumin [Mass/Vol] 4.1 g/dL 3.2-5.5 [facility] Automated erythrocytes count in urine sediment (number/area)Ordered By: Agustin Llanes on 03-22-2022 RBC Auto (Urine sed) [#/Area] 3-4 [HPF] 0-4 [facility] Automated leukocytes count i n urine sediment (number/area)Ordered By: Agustin Llanes on 03-22-2022 WBC Auto (Urine sed) [#/Area] 10-19 [HPF] 0-4 [facility] Basic Metabolic Panelon 03-09 Anion gap [Moles/Vol] 12.6 mmol/L Normal 6.0-15.0 [facility] Comment on above: Performed By: #### H EPATIC, LIPASE, CBC, BMP #### [facility] [address] [place] [address] Calcium [Mass/Vol] 9.9 mg/dL Normal 8.2-10.2 [facility] Comment on above: Performed By: #### H EPATIC, LIPASE, CBC, BMP #### [address] Chloride [Moles/Vol] 103 mmol/L Normal 95-114 [facility] Comment on above: Performed By: #### H EPATIC, LIPASE, CBC, BMP #### [address] CO2 [Moles/Vol] 26.9 mmol/L Normal 22.0-30.0 [facility] Comment on above: Performed By: #### H EPATIC, LIPASE, CBC, BMP #### [address] Creatinine [Mass/Vol] 0.74 mg/dL Normal 0.44-1.03 [facility] Comment on above: Performed By: #### H EPATIC, LIPASE, CBC, BMP #### [address] Creatinine Clr Calc Pharmacy 70.34 [facility] Comment on above: Performed By: #### H EPATIC, LIPASE, CBC, BMP #### [address] Estimated GFR ( [place] > 60 [facility] Comment on above: Result Comment: GFR estimated reference range: According to KDOQI guidelines, <60 ml/min/1.73m2 is sufficient to diagnose a patient with chronic kidney disease. Performed By: #### H EPATIC, LIPASE, CBC, BMP #### [address] Estimated GFR (Non- Am > 60 [facility] Comment on above: Performed By: #### H EPATIC, LIPASE, CBC, BMP #### [facility] [address] Glucose [Mass/Vol] 106 mg/dL High 70-100 [facility] Comment on above: Result Comment: [facility] Glucose Reference Range is dependent on time and content of last meal. Glucose of more than 200 mg/dL in a nonstressed, ambulatory subject supports the diagnosis of Diabetes Mellitus. ADA recommended reference range Performed By: #### H EPATIC, LIPASE, CBC, BMP #### [facility] [address] Potassium [Moles/Vol] 4.5 mmol/L Normal 3.5-5.1 [facility] Comment on above: Performed By: #### H EPATIC, LIPASE, CBC, BMP #### [facility] [address] Sodium [Moles/Vol] 138 mmol/L Normal 136-146 [facility] Comment on above: Performed By: #### H EPATIC, LIPASE, CBC, BMP #### [facility] [address] Urea nitrogen [Mass/Vol] 8 mg/dL Low 9-23 [facility] Comment on above: Performed By: #### H EPATIC, LIPASE, CBC, BMP #### [facility] [address] Basophils Auto (Bld) [#/Vol] Ordered By: Agustin Llanes on 03-22-2022 Basophils (Bld) [#/Vol] 0.1 10*3/uL 0.0-0.2 [facility] Basophils/100 WBC Auto (Bld) Ordered By: Agustin Llanes on 03-22-2022 Basophils/100 WBC (Bld) 0.9 % . [facility] Bilirubin Test strip Ql (U)O rdered By: Agustin Llanes on 03-22-2022 Bilirubin Ql (U) Negative Negative [facility] Color Auto (U)Ordered By: Vita Llanes on 03-22-2022 Color (U) Yellow Yellow [facility] Complete Blood Count Auto Di ffon 03-22-2022 Basophils (Bld) [#/Vol] 0.1 10*3/uL Normal 0.0-0.2 [facility] Comment on above: Result Comment: PERF ORMED BY: [place] [address] PATHOLOGIST [employer] PAULA RODRIGUES M.D. Performed By: #### H EPATIC, LIPASE, CBC, BMP #### [address] Basophils/100 WBC (Bld) 0.9 % Normal . [facility] Comment on above: Performed By: #### H EPATIC, LIPASE, CBC, BMP #### [address] Eosinophils (Bld) [#/Vol] 0.1 10*3/uL Normal 0.0-0.45 [facility] Comment on above: Performed By: #### H EPATIC, LIPASE, CBC, BMP #### [address] Eosinophils/100 WBC (Bld) 0.7 % Normal . [facility] Comment on above: Performed By: #### H EPATIC, LIPASE, CBC, BMP #### [address] Erythrocyte distribution width (RBC) [Ratio] 13.9 % Normal 11.9-15.3 [facility] Comment on above: Performed By: #### H EPATIC, LIPASE, CBC, BMP #### [address] Hematocrit (Bld) [Volume fraction] 45.7 % Normal 34.0-46.4 [facility] Comment on above: Performed By: #### H EPATIC, LIPASE, CBC, BMP #### [address] Hemoglobin (Bld) [Mass/Vol] 15.2 g/dL Normal 11.8-15.4 [facility] Comment on above: Performed By: #### H EPATIC, LIPASE, CBC, BMP #### [place] [address] [place] Lymphocytes (Bld) [#/Vol] 2.2 10*3/uL Normal 1.00-4.8 [facility] Comment on above: Performed By: #### H EPATIC, LIPASE, CBC, BMP #### [address] Lymphocytes/100 WBC (Bld) 18.0 % Normal . [facility] Comment on above: Performed By: #### H EPATIC, LIPASE, CBC, BMP #### [address] MCH (RBC) [Entitic mass] 32.5 pg Normal 24.7-34.3 [facility] Comment on above: Performed By: #### H EPATIC, LIPASE, CBC, BMP #### [address] MCV (RBC) [Entitic vol] 98.0 fL Normal 80-100 [facility] Comment on above: Performed By: #### H EPATIC, LIPASE, CBC, BMP #### [address] Mean Corpuscular HGB Conc 33.2 g/dL Normal 32.0-35.0 [facility] Comment on above: Performed By: #### H EPATIC, LIPASE, CBC, BMP #### [address] Monocytes (Bld) [#/Vol] 1.0 10*3/uL High 0.0-0.8 [facility] Comment on above: Performed By: #### H EPATIC, LIPASE, CBC, BMP #### [address] Monocytes/100 WBC (Bld) 18.78 % Normal 0.00-20.00 [facility] Comment on above: Performed By: #### H EPATIC, LIPASE, CBC, BMP #### [address] Monocytes/100 WBC (Bld) 8.0 % Normal . [facility] Comment on above: Performed By: #### H EPATIC, LIPASE, CBC, BMP #### [address] Neutrophils (Bld) [#/Vol] 9.0 10*3/uL High 1.8-7.7 [facility] Comment on above: Performed By: #### H EPATIC, LIPASE, CBC, BMP #### [address] Neutrophils/100 WBC (Bld) 72.4 % Normal . [facility] Comment on above: Performed By: #### H EPATIC, LIPASE, CBC, BMP #### [address] NRBC% 0.0 /100{WBC} Normal 0-0.5 [facility] Comment on above: Performed By: #### H EPATIC, LIPASE, CBC, BMP #### [address] Platelet mean volume (Bld) [Entitic vol] 8.0 fL Normal 6.3-10.7 [facility] Comment on above: Performed By: #### H EPATIC, LIPASE, CBC, BMP #### [address] Platelets (Bld) [#/Vol] 266 10*3/uL Normal 150-450 [facility] Comment on above: Performed By: #### H EPATIC, LIPASE, CBC, BMP #### [address] RBC (Bld) [#/Vol] 4.67 10*6/uL Normal 3.60-5.00 [facility] Comment on above: Performed By: #### H EPATIC, LIPASE, CBC, BMP #### [address] WBC (Bld) [#/Vol] 12.4 10*3/uL High 3.8-11.6 [facility] Comment on above: Performed By: #### H EPATIC, LIPASE, CBC, BMP #### [place] [address] [place] Creatinine and Glomerular fi ltration rate.predicted panel (S/P/Bld)Ordered By: Agustin Llanes on 03-22-2022 Creatinine [Mass/Vol] 0.74 mg/dL 0.44-1.03 [facility] Dipstick and Microscopicon 0 03-22-2022 Appearance (U) Clear Normal Clear [facility] Comment on above: Order Comment: Name Collection Type:: Clean-Voided Midstream Performed By: #### U A #### [facility] [address] [place] [address] Bacteria,Urine 1+ High None Seen [facility] Comment on above: Order Comment: Name Collection Type:: Clean-Voided Midstream Performed By: #### U A #### [address] Bilirubin,Urine Negative Normal Negative [facility] Comment on above: Order Comment: Name Collection Type:: Clean-Voided Midstream Performed By: #### U A #### [facility] [address] [place] [address] Color (U) Yellow Normal Yellow [facility] Comment on above: Order Comment: Name Collection Type:: Clean-Voided Midstream Performed By: #### U A #### [facility] [address] [place] [address] Glucose Ql (U) Normal Normal Normal [facility] Comment on above: Order Comment: Name Collection Type:: Clean-Voided Midstream Performed By: #### U A #### [facility] [address] [place] [address] [place] Hyaline Casts,Urine 0-8 Normal 0-8 [facility] Comment on above: Order Comment: Name Collection Type:: Clean-Voided Midstream Performed By: #### U A #### [facility] [address] [place] [address] [place] Ketones Ql (U) Negative Normal Negative [facility] Comment on above: Order Comment: Name Collection Type:: Clean-Voided Midstream Performed By: #### U A #### [facility] [address] [place] [address] [place] Leukocyte esterase Test strip Ql (U) 2+ High Negative [facility] Comment on above: Order Comment: Name Collection Type:: Clean-Voided Midstream Performed By: #### U A #### [facility] [address] [place] [address] [place] Nitrite,Urine Positive High Negative [facility] Comment on above: Order Comment: Name Collection Type:: Clean-Voided Midstream Performed By: #### U A #### [address] Occult Blood,Urine Negative Normal Negative [facility] Comment on above: Order Comment: Name Collection Type:: Clean-Voided Midstream Performed By: #### U A #### [address] pH (U) 5.5 [pH] Normal 5.0-9.0 [facility] Comment on above: Order Comment: Name Collection Type:: Clean-Voided Midstream Performed By: #### U A #### [facility] [address] [place] [address] [place] Protein,Urine Negative Normal Negative [facility] Comment on above: Order Comment: Name Collection Type:: Clean-Voided Midstream Performed By: #### U A #### [address] RBC,Urine 3-4 Normal 0-4 [facility] Comment on above: Order Comment: Name Collection Type:: Clean-Voided Midstream Performed By: #### U A #### [facility] [address] [place] [address] Specificy [place],Urine 1.011 Normal 1.001-1.030 [facility] Comment on above: Order Comment: Name Collection Type:: Clean-Voided Midstream Performed By: #### U A #### [facility] [address] [place] [address] Squamous Epithelial Cell,Urine 1-2 Normal 0-2 [facility] Comment on above: Order Comment: Name Collection Type:: Clean-Voided Midstream Performed By: #### U A #### [facility] [address] [place] [address] [place] Urobilinogen,Urine Normal Normal Normal [facility] Comment on above: Order Comment: Name Collection Type:: Clean-Voided Midstream Performed By: #### U A #### [facility] [address] [place] [id number] [place] WBC,Urine 10-19 High 0-4 [facility] Comment on above: Order Comment: Name Collection Type:: Clean-Voided Midstream Performed By: #### U A #### [facility] [address] Direct bilirubin measurement Ordered By: Agustin Llanes on 03-22-2022 Bilirubin.direct [Mass/Vol] 0.3 mg/dL 0.0-0.4 [facility] Eosinophils Auto (Bld) [#/Vo l]Ordered By: Agustin Llanes on 03-22-2022 Eosinophils (Bld) [#/Vol] 0.1 10*3/uL 0.0-0.45 [facility] Eosinophils/100 WBC Auto (Bl d)Ordered By: Agustin Llanes on 03-22-2022 Eosinophils/100 WBC (Bld) 0.7 % . [facility] Erythrocyte distribution wid th Auto (RBC) [Ratio]Ordered By: Agustin Llanes on 03-22-2022 Erythrocyte distribution width (RBC) [Ratio] 13.9 % 11.9-15.3 [facility] Estimated glomerular filtrat ion rate (GFR) non- AmericanOrdered By: Agustin Llanes on 03-22-2022 GFR/1.73 sq M.predicted among non-blacks MDRD (S/P/Bld) [Vol rate/Area] > 60 mL/Min [facility] Globulin Calc (S) [Mass/Vol] Ordered By: Agustin Llanes on 03-22-2022 Globulin (S) [Mass/Vol] 3.1 g/dL [facility] HCG ( test) IA.rapi d Ql (U)Ordered By: Agustin Llanes on 03-22-2022 HCG ( test) Ql (U) Negative [facility] HCG,Urineon 03-22-2022 Beta HCG ( test) Ql (U) Negative Normal [facility] Comment on above: Order Comment: Name Collection Type:: Clean-Voided Midstream Result Comment: PERF ORMED BY: [place] [address] PATHOLOGIST [employer] PAULA RODRIGUES M.D. Performed By: #### U A #### [facility] [address] [place] [address] Hematocrit Auto (Bld) [Volum e fraction]Ordered By: Agustin Llanes on 03-22-2022 Hematocrit (Bld) [Volume fraction] 45.7 % 34.0-46.4 [facility] Hemoglobin [Mass/volume] in BloodOrdered By: Agustin Llanes on 03-22-2022 Hemoglobin (Bld) [Mass/Vol] 15.2 g/dL 11.8-15.4 [facility] Hepatic Panelon 03-22-2022 Albumin [Mass/Vol] 4.1 g/dL Normal 3.2-5.5 [facility] Comment on above: Performed By: #### H EPATIC, LIPASE, CBC, BMP #### [facility] [address] [place] [address] Albumin/Globulin [Mass ratio] 1.3 {ratio} Normal [facility] Comment on above: Performed By: #### H EPATIC, LIPASE, CBC, BMP #### [address] ALP [Catalytic activity/Vol] 156 U/L High 32-92 [facility] Comment on above: Performed By: #### H EPATIC, LIPASE, CBC, BMP #### [facility] [address] [place] [address] [place] ALT [Catalytic activity/Vol] 19 U/L Normal 10-60 [facility] Comment on above: Performed By: #### H EPATIC, LIPASE, CBC, BMP #### [address] AST [Catalytic activity/Vol] 29 U/L Normal 10-42 [facility] Comment on above: Performed By: #### H EPATIC, LIPASE, CBC, BMP #### [address] [place] [address] [place] Bilirubin [Mass/Vol] 0.5 mg/dL Normal 0.3-1.2 [facility] Comment on above: Performed By: #### H EPATIC, LIPASE, CBC, BMP #### [facility] [address] Bilirubin,Indirect 0.2 mg/dL Normal [facility] Comment on above: Performed By: #### H EPATIC, LIPASE, CBC, BMP #### [facility] [address] Bilirubin.indirect [Mass/Vol] 0.3 mg/dL Normal 0.0-0.4 [facility] Comment on above: Performed By: #### H EPATIC, LIPASE, CBC, BMP #### [facility] [address] Globulin (S) [Mass/Vol] 3.1 g/dL Normal [facility] Comment on above: Performed By: #### H EPATIC, LIPASE, CBC, BMP #### [facility] [address] Protein [Mass/Vol] 7.2 g/dL Normal 6.1-7.9 [facility] Comment on above: Performed By: #### H EPATIC, LIPASE, CBC, BMP #### [address] Ketones Auto test strip (U) [Mass/Vol]Ordered By: Agustin Llanes on 03-22-2022 Ketones (U) [Mass/Vol] Negative Negative [facility] - Chemistry and C hemistry - challengeOrdered By: Agustin Llanes on 03-22-2022 Lipase [Catalytic activity/Vol] 122.0 U/L 22-51 [facility] Laboratory - UrinalysisOrder ed By: Agustin Llanes on 03-22-2022 Hyaline casts LM Ql (Urine sed) 0-8 [LPF] 0-8 [facility] Leukocytes [#/volume] correc aurelia for nucleated erythrocytes in Blood by Automated counOrdered By: Agustin Llanes on 03-22-2022 WBC corrected for nucl RBC Auto (Bld) [#/Vol] 12.4 10*3/uL 3.8-11.6 [facility] Lipaseon 03-22-2022 Lipase [Catalytic activity/Vol] 122.0 U/L High 22-51 [facility] Comment on above: Result Comment: PERF ORMED BY: [facility] [address] [place] [address] PATHOLOGIST [employer] PAULA RODRGIUES M.D. Performed By: #### H EPATIC, LIPASE, CBC, BMP #### [facility] [address] Lymphocytes Auto (Bld) [#/Vo l]Ordered By: Agustin Llanes on 03-22-2022 Lymphocytes (Bld) [#/Vol] 2.2 10*3/uL 1.00-4.8 [facility] Lymphocytes/100 WBC Auto (Bl d)Ordered By: Agustin Llanes on 03-22-2022 Lymphocytes/100 WBC (Bld) 18.0 % . [facility] MCH Auto (RBC) [Entitic mass ]Ordered By: Agustin Llanes on 03-22-2022 MCH (RBC) [Entitic mass] 32.5 pg 24.7-34.3 [facility] MCHC Auto (RBC) [Mass/Vol]Or dered By: Agustin Llanes on 03-22-2022 MCHC (RBC) [Mass/Vol] 33.2 g/dL 32.0-35.0 [facility] MCV Auto (RBC) [Entitic vol] Ordered By: Agustin Llanes on 03-22-2022 MCV (RBC) [Entitic vol] 98.0 fL 80-100 [facility] Monocyte distribution width [Entitic volume] in Blood by AutomatedOrdered By: Agustin Llanes on 03-22-2022 Monocyte distribution width Auto (Bld) [Entitic vol] 18.78 % 0.00-20.00 [facility] Monocytes Auto (Bld) [#/Vol] Ordered By: Agustin Llanes on 03-22-2022 Monocytes (Bld) [#/Vol] 1.0 10*3/uL 0.0-0.8 [facility] Monocytes/100 WBC Auto (Bld) Ordered By: Agustin Llanes on 03-22-2022 Monocytes/100 WBC (Bld) 8.0 % . [facility] Neutrophils Auto (Bld) [#/Vo l]Ordered By: Agustin Llanes on 03-22-2022 Neutrophils (Bld) [#/Vol] 9.0 10*3/uL 1.8-7.7 [facility] Neutrophils/100 WBC Auto (Bl d)Ordered By: Agustin Llanes on 03-22-2022 Neutrophils/100 WBC (Bld) 72.4 % . [facility] Nitrite Test strip Ql (U)Ord ered By: Agustin Llanes on 03-22-2022 Nitrite Ql (U) Positive Negative [facility] No Panel InformationOrdered By: Agustin Llanes on 03-22-2022 Estimated GFR () > 60 mL/Min [facility] Comment on above: GFR estimated refere nce range: According to KDOQI guidelines, <60 ml/min/1.73m2 is sufficient to diagnose a patient with chronic kidney disease. Pharmacy Creatinine Clearance (Chem 70.34 [facility] Nucleated erythrocytes [Pres ence] in Blood by Automated countOrdered By: Agustin Llanes on 03-22-2022 Nucleated RBC Auto Ql (Bld) 0.0 /100{WBC} 0-0.5 [facility] Platelet mean volume Auto (B ld) [Entitic vol]Ordered By: Agustin Llanes on 03-22-2022 Platelet mean volume (Bld) [Entitic vol] 8.0 fL 6.3-10.7 [facility] Platelets Auto (Bld) [#/Vol] Ordered By: Agustin Llanes on 03-22-2022 Platelets (Bld) [#/Vol] 266 10*3/uL 150-450 [facility] Protein Auto test strip (U) [Mass/Vol]Ordered By: Agustin Llanes on 03-22-2022 Protein (U) [Mass/Vol] Negative Negative [facility] Protein [Mass/volume] in Ser um or PlasmaOrdered By: Agustin Llanes on 03-22-2022 Protein [Mass/Vol] 7.2 g/dL 6.1-7.9 [facility] RBC Auto (Bld) [#/Vol]Ordere d By: Agustin Llanes on 03-22-2022 RBC (Bld) [#/Vol] 4.67 10*6/uL 3.60-5.00 [facility] Serum or plasma alanine hughes otransferase measurement without P-5'-P (enzymatic activiOrdered By: Agustin Llanes on 03-22-2022 ALT No additional P-5'-P [Catalytic activity/Vol] 19 U/L 10-60 [facility] Serum or plasma albumin/glob ulin mass ratioOrdered By: Agustin Llanes on 03-22-2022 Albumin/Globulin [Mass ratio] 1.3 {ratio} [facility] Serum or plasma alkaline jaqueline sphatase measurement (enzymatic activity/volume)Ordered By: Agustin Llanes on 03-22-2022 ALP [Catalytic activity/Vol] 156 U/L 32-92 [facility] Serum or plasma anion gap de terminationOrdered By: Agustin Llanes on 03-22-2022 Anion gap [Moles/Vol] 12.6 mmol/L 6.0-15.0 [facility] Serum or plasma aspartate am inotransferase measurement (enzymatic activity/volume)Ordered By: Agustin Llanes on 03-22-2022 AST [Catalytic activity/Vol] 29 U/L 10-42 [facility] Serum or plasma calcium priscilla urement (mass/volume)Ordered By: Agustin Llanes on 03-22-2022 Calcium [Mass/Vol] 9.9 mg/dL 8.2-10.2 [facility] Serum or plasma chloride daron surement (moles/volume)Ordered By: Agustin Llanes on 03-22-2022 Chloride [Moles/Vol] 103 mmol/L 95-114 [facility] Serum or plasma glucose priscilla urement (mass/volume)Ordered By: Agustin Llanes on 03-22-2022 Glucose [Mass/Vol] 106 mg/dL 70-100 [facility] Comment on above: ADA recommended refe rence rangeRandom Glucose Reference Range is dependent on time and content of last meal. Glucose of more than 200 mg/dL in a nonstressed, ambulatory subject supports the diagnosis of Diabetes Mellitus. Serum or plasma non-glucuron idated bilirubin measurement (mass/volume)Ordered By: Agustin Llanes on 03-22-2022 Bilirubin.indirect [Mass/Vol] 0.2 mg/dL [facility] Serum or plasma potassium me asurement (moles/volume)Ordered By: Agustin Llanes on 03-22-2022 Potassium [Moles/Vol] 4.5 mmol/L 3.5-5.1 [facility] Serum or plasma sodium measu rement (moles/volume)Ordered By: Agustin Llanes on 03-22-2022 Sodium [Moles/Vol] 138 mmol/L 136-146 [facility] Serum or plasma total biliru bin measurement (mass/volume)Ordered By: Agustin Llanes on 03-22-2022 Bilirubin [Mass/Vol] 0.5 mg/dL 0.3-1.2 [facility] Serum or plasma total carbon dioxide measurement (moles/volume)Ordered By: Agustin Llanes on 03-22-2022 CO2 [Moles/Vol] 26.9 mmol/L 22.0-30.0 [facility] Serum or plasma urea nitroge n measurement (mass/volume)Ordered By: Agustin Llanes on 03-22-2022 Urea nitrogen [Mass/Vol] 8 mg/dL 9-23 [facility] Specific gravity Auto test s trip (U) [Rel density]Ordered By: Agustin Llanes on 03-22-2022 Specific gravity (U) [Rel density] 1.011 1.001-1.030 [facility] Squamous epithelial cells de tection in urine sediment by light microscopyOrdered By: Agustin Llanes on 03-22-2022 Epithelial cells.squamous LM Ql (Urine sed) 1-2 [HPF] 0-2 [facility] Urine Cultureon 03-22-2022 Bacteria identified Cx Nom (U) ORGANISM: Escherichia coli (O:ESCCOL) [place] Count >100,000 Aerobic SIMI Charge ([id number]) --- [...] RESISTANT TO ALL B-LACTAM DRUGS. PERFORMED BY: [place] [address] PATHOLOGIST [employer] PAULA RODRIGUES M.D. [facility] Comment on above: Performed By: #### U A #### [address] Urine bacteria detection by automated methodOrdered By: Agustin Llanes on 03-22-2022 Bacteria Auto Ql (U) 1+ None Seen [facility] Urine clarity by refractomet ry automatedOrdered By: Agustin Llanes on 03-22-2022 Clarity Refractometry automated (U) Clear Clear [facility] Urine glucose measurement by automated test strip (mass/volume)Ordered By: Agustin Llanes on 03-22-2022 Glucose Auto test strip (U) [Mass/Vol] Normal mg/dL Normal [facility] [facility] hemoglobin detection b y automated test stripOrdered By: Agustin Llanes on 03-22-2022 Hemoglobin Auto test strip Ql (U) Negative Negative [facility] Urine leukocyte esterase det ection by automated test stripOrdered By: Agustin Llanes on 03-22-2022 Leukocyte esterase Auto test strip Ql (U) 2+ Negative [facility] Urobilinogen Auto test strip (U) [Mass/Vol]Ordered By: Agustin Llanes on 03-22-2022 Urobilinogen (U) [Mass/Vol] Normal mg/dL Normal [facility] WBC Auto (Bld) [#/Vol]Ordere d By: Agustin Llanes on 03-22-2022 WBC (Bld) [#/Vol] 12.4 10*3/uL 3.8-11.6 [facility] pH Auto test strip (U)Ordere d By: Agustin Llanes on 03-22-2022 pH (U) 5.5 [pH] 5.0-9.0 [facility] AMYLASEon 03-19-2022 Amylase [Catalytic activity/Vol] 297 U/L Critically high 25-115 [facility] Comment on above: Performed By: #### L IPA, CMP, CRP, NAT #### [facility] [address] [place] [address] Dr. Keturah Fisher CBC AUTO DIFFon 03-19-2022 BASO # 0.1 103/ul Normal 0.0-0.1 [facility] Comment on above: Performed By: #### L IPA, CMP, CRP, NAT #### [facility] [address] [address] [address] Keturah Fisher Basophils/100 WBC (Bld) 0.6 % Normal 0.2-2.0 [facility] Comment on above: Performed By: #### L IPA, CMP, CRP, NAT #### [facility] [address] [address] [address] Keturah Fisher EO # 0.1 103/ul Normal 0.0-0.7 [facility] Comment on above: Performed By: #### L IPA, CMP, CRP, NAT #### [facility] [address] [address] [address] Keturah Fisher Eosinophils/100 WBC (Bld) 0.5 % Critically low 0.9-7.0 [facility] Comment on above: Performed By: #### L IPA, CMP, CRP, NAT #### [facility] [address] [address] [address] Keturah Fisher Erythrocyte distribution width (RBC) [Ratio] 13.4 % Normal 11.0-15.0 [facility] Comment on above: Performed By: #### L IPA, CMP, CRP, NAT #### [facility] [address] [place] [address] Dr. Keturah Fisher Hemoglobin (Bld) [Mass/Vol] 15.7 g/dL Normal 12.0-16.0 [facility] Comment on above: Performed By: #### L IPA, CMP, CRP, NAT #### [facility] [address] [place] [address] Dr. Keturah Fisher IG # 0.06 10e3/ul Critically high 0.00-0.03 [facility] Comment on above: Performed By: #### L IPA, CMP, CRP, NAT #### [facility] [address] [place] [address] Dr. Keturah Fisher IG % 0.4 % Normal 0.0-0.5 [facility] Comment on above: Performed By: #### L IPA, CMP, CRP, NAT #### [facility] [address] [place] [address] Dr. Keturah Fisher LYMPH # 2.6 103/ul Normal 1.2-3.8 [facility] Comment on above: Performed By: #### L IPA, CMP, CRP, NAT #### [facility] [address] [place] [address] Dr. Keturah Fisher Lymphocytes/100 WBC (Bld) 18.1 % Critically low 20.5-60.0 [facility] Comment on above: Performed By: #### L IPA, CMP, CRP, NAT #### [facility] [address] [place] [address] Dr. Keturah Fisher MANUAL DIFF REQ NO Normal [facility] Comment on above: Performed By: #### L IPA, CMP, CRP, NAT #### [facility] [address] [place] [address] Dr. Keturah Fisher MCH (RBC) [Entitic mass] 32.4 pg Normal 26.7-34.0 [facility] Comment on above: Performed By: #### L IPA, CMP, CRP, NAT #### [facility] [address] [place] [address] Dr. Keturah Fisher MCHC (RBC) [Mass/Vol] 32.5 g/dL Normal 29.9-35.2 [facility] Comment on above: Performed By: #### L IPA, CMP, CRP, NAT #### [facility] [address] [place] [address] Dr. Keturah Fisher MCV (RBC) [Entitic vol] 99.8 fL Critically high 81.0-99.0 [facility] Comment on above: Performed By: #### L IPA, CMP, CRP, NAT #### [facility] [address] [place] [address] Dr. Keturah Fisher MONO # 0.9 103/ul Critically high 0.3-0.8 [facility] Comment on above: Performed By: #### L IPA, CMP, CRP, NAT #### [facility] [address] [place] [address] Dr. Keturah Fisher Monocytes/100 WBC (Bld) 5.9 % Normal 1.7-12.0 [facility] Comment on above: Performed By: #### L IPA, CMP, CRP, NAT #### [facility] [address] [place] [address] Dr. Keturah Fisher NEUT # 10.8 103/ul Critically high 1.4-6.5 [facility] Comment on above: Performed By: #### L IPA, CMP, CRP, NAT #### [facility] [address] [place] [address] Dr. Keturah Fisher Neutrophils/100 WBC (Bld) 74.5 % Normal 43.0-75.0 [facility] Comment on above: Performed By: #### L IPA, CMP, CRP, NAT #### [facility] [address] [place] [address] Dr. Keturah Fisher Platelet mean volume (Bld) [Entitic vol] 9.7 fL Normal 9.5-13.5 [facility] Comment on above: Performed By: #### L IPA, CMP, CRP, NAT #### [facility] [address] [place], [place] [address] Dr. Keturah Fisher PLT 279 103/ul Normal 150-450 [facility] Comment on above: Performed By: #### L IPA, CMP, CRP, NAT #### [facility] [address] [place], [place] [address] Dr. Keturah Fisher RBC 4.84 106/ul Normal 4.20-5.40 [facility] Comment on above: Performed By: #### L IPA, CMP, CRP, NAT #### [facility] [address] [place], [place] [address] Dr. Keturah Fisher WBC 14.5 103/ul Critically high 4.0-11.0 [facility] Comment on above: Performed By: #### L IPA, CMP, CRP, NAT #### [facility] [address] [place], [place] [address] ABD/PELVIS WO CONon [...] AGUSTIN HIGHTOWER Date: 2022-03-19 19:[address] [facility] LIPASEon 03-19-2022 Lipase [Catalytic activity/Vol] 1573.0 U/L Critically high 73.0-393.0 [facility] Comment on above: Performed By: #### L IPA, CMP, CRP, NAT #### [facility] [address] [address] [address] Keturah Fisher PROF 14(COMP METB)on 023 Albumin [Mass/Vol] 4.3 g/dL Normal 3.4-5.0 [facility] Comment on above: Performed By: #### L IPA, CMP, CRP, NAT #### [facility] [address] [address] [address] Keturah Fisher Albumin/Globulin [Mass ratio] 1.1 {ratio} Normal [facility] Comment on above: Performed By: #### L IPA, CMP, CRP, NAT #### [facility] [address] [address] [address] Keturah Fisher ALP [Catalytic activity/Vol] 222 U/L Critically high 46-116 [facility] Comment on above: Performed By: #### L IPA, CMP, CRP, NAT #### [facility] [address] [address] [address] Keturah Fisher ALT [Catalytic activity/Vol] 18 U/L Normal 14-59 [facility] Comment on above: Performed By: #### L IPA, CMP, CRP, NAT #### [facility] [address] [address] [address] Keturah Fisher Anion gap [Moles/Vol] 10.7 mmol/L Normal [facility] Comment on above: Performed By: #### L IPA, CMP, CRP, NAT #### [facility] [address] [address] [address] Keturah Fisher AST [Catalytic activity/Vol] 19 U/L Normal 15-37 [facility] Comment on above: Performed By: #### L IPA, CMP, CRP, NAT #### [facility] [address] [address] [address] Keturah Fisher Bilirubin [Mass/Vol] 0.2 mg/dL Normal 0.2-1.0 [facility] Comment on above: Performed By: #### L IPA, CMP, CRP, NAT #### [facility] [address] [place] [address] Dr. Keturah Fisher Calcium [Mass/Vol] 10.2 mg/dL Critically high 8.5-10.1 [facility] Comment on above: Performed By: #### L IPA, CMP, CRP, NAT #### [facility] [address] [address] [address] Keturah Fisher Chloride [Moles/Vol] 101 mmol/L Normal 98-107 [facility] Comment on above: Performed By: #### L IPA, CMP, CRP, NAT #### [facility] [address] [place] [address] Dr. Keturah Fisher CO2 [Moles/Vol] 29.1 mmol/L Normal 21.0-32.0 [facility] Comment on above: Performed By: #### L IPA, CMP, CRP, NAT #### [facility] [address] [place] [address] Dr. Keturah Fisher Creatinine [Mass/Vol] 0.73 mg/dL Normal 0.55-1.02 [facility] Comment on above: Performed By: #### L IPA, CMP, CRP, NAT #### [facility] [address] [place] [address] Dr. Keturah Fisher EGFR-AF KENYAN >60 Normal >=60 [facility] Comment on above: Performed By: #### L IPA, CMP, CRP, NAT #### [facility] [address] [place] [address] Dr. Keturah Fisher EGFR-NON AF KENYAN >60 Normal >=60 [facility] Comment on above: Performed By: #### L IPA, CMP, CRP, NAT #### [facility] [address] [place] [address] Dr. Keturah Fisher Globulin (S) [Mass/Vol] 4.0 g/dL Normal [facility] Comment on above: Performed By: #### L IPA, CMP, CRP, NAT #### [facility] [address] [place] [address] Dr. Keturah Fisher Glucose [Mass/Vol] 92 mg/dL Normal 74-106 [facility] Comment on above: Performed By: #### L IPA, CMP, CRP, NAT #### [facility] [address] [place] [address] Dr. Keturah Fisher Potassium [Moles/Vol] 3.8 mmol/L Normal 3.5-5.1 [facility] Comment on above: Performed By: #### L IPA, CMP, CRP, NAT #### [facility] [address] [place] [address] Dr. Keturah Fisher Protein [Mass/Vol] 8.3 g/dL Critically high 6.4-8.2 [facility] Comment on above: Performed By: #### L IPA, CMP, CRP, NAT #### [facility] [address] [place] [address] Dr. Keturah Fisher Sodium [Moles/Vol] 137 mmol/L Normal 136-145 [facility] Comment on above: Performed By: #### L IPA, CMP, CRP, NAT #### [facility] [address] [place] [address] Dr. Keturah Fisher Urea nitrogen [Mass/Vol] 10.0 mg/dL Normal 7.0-18.0 [facility] Comment on above: Performed By: #### L IPA, CMP, CRP, NAT #### [facility] [address] [address] [address] Keturah Fisher Urea nitrogen/Creatinine [Mass ratio] 13.7 mg/mg Normal [facility] Comment on above: Performed By: #### L IPA, CMP, CRP, NAT #### [facility] [address] [address] [address] Keturah Fisher PROTIMEon 03-19-2022 INR Coag (PPP) [Relative time] {INR} Normal [facility] Comment on above: Performed By: #### P TT, PT ####[facility] [address] [address]DrGopal Fisher INR GUIDELINES SEE BELOW Normal [facility] Comment on above: Result Comment: KARLY RED INR: 2.0 - 3.0 CONDITIONS NOT LISTED BELOW 2.5 - 3.5 FOR PROSTHETIC HEART VALVE REPLACEMENT 2.5 - 3.5 RECURRENT THROMBOSIS Performed By: #### P TT, PT ####[facility] [address] [address]DrGopal Fisher PT Coag (PPP) [Time] 9.4 s Normal 9.0-11.6 [facility] Comment on above: Performed By: #### P TT, PT ####[facility] [address] [address]DrGopal Fisher PTTon 03-19-2022 aPTT Coag (Bld) [Time] 26.1 s Normal 22.3-36.2 [facility] Comment on above: Performed By: #### P TT, PT ####[facility] [address] [address]Dr. Keturah Fisher TROPONIN, HIGH SENSITIVITYon 03-19-2022 HSTROP 4.0 pg/mL Normal 4.0-51.3 [facility] Comment on above: Result Comment: CUT- OFF POINTS HAVE BEEN ESTABLISHED BASED ON THE FOURTH UNIVERSAL DEFINITIONS OF MYOCARDIAL INFARCTION. THE UPPER REFERENCE LIMIT (URL) OF TROPONIN, DEFINED THE 99TH PERCENTILE OF cTnI DISTRIBUTION IN A REFERENCE POPULATION, HAS BEEN CONFIRMED THE DECISION THRESHOLD FOR DE DIAGNOSIS. Performed By: #### L IPA, CMP, CRP, NAT #### [facility] [address] [address] [address] Keturah Fisher UPPER EUSon 01-28-2022 [facility] Gastroenterology Patient Name: Chioma Rainey Procedure Date: 01/28/2022 8:55 AM Date of : 1970 Admit Type: Outpatient Age: 51 Room: EUS Proc Room 01 Gender: Female Note Status: Finalized Attending MD: Sabrina Dee MD, MPH, [id number] Procedure: Upper EUS Indications: Chronic pancreatitis, Celiac plexus block for pain secondary to chronic pancreatitis Providers: Sabrina Dee MD, MPH (Doctor), Akilah Gonzales, JOSE LUIS (Nurse), Lara Yost RN (Nurse), Montse Garcia Board Hammer Operator (Board Hammer Operator), LOW Velazquez (Anesthesia Staff), Neri Goins [...] verified by the physician, the nurse, the client portfolio manager and the hydraulic controls technician in the procedure room. Mental Status [...] si (more content not included)... LAB, [facility] Radiology Study observation (narrative) [facility] BONE DENSITY AXIAL (HIP, PEL VIS, SPINE)on 01-27-2022 BONE DENSITY AXIAL (HIP, PELVIS, SPINE) EXAM: BONE DENSITY AXIAL (HIP, PELVIS, SPINE) 01/27/2022 15:34 PM TECHNIQUE: DXA scanning using a [employer] Advance bone densitometer at the [facility] was performed on 01/27/2022 15:34 PM [...] interpreted this study is a Certified Clinical Display Coordinator by the International Society of Clinical Densitometry Maulik Reed M.D., CCD. [facility] IMPRESSION: Based on BMD and [...] interpreted this study is a Certified Clinical Display Coordinator by the International Society of Clinical Densitometry Maulik Reed M.D., CCD. [facility] EXAM: BONE DENSITY AXIAL (HIP, PELVIS, SPINE) 01/27/2022 15:34 PM TECHNIQUE: DXA scanning using a [employer] Advance bone densitometer at the [facility] was performed on 01/27/2022 15:34 PM [...] 15:34 PM TECHNIQUE: DXA scanning using a [employer] Advance bone densitometer at the [facility] was performed on 01/27/2022 15:34 PM [...] interpreted this study is a Certified Clinical Display Coordinator by the International Society of Clinical Densitometry Maulik Reed M.D., CCD. [facility] Radiology Study observation (narrative) [facility] BONE DENSITY AXIAL (HIP, PEL VIS, SPINE)Ordered By: Maulik Reed on 01-27-2022 [facility] Work Phone: CBC AUTO DIFFon 01-15-2022 BASO # 0.1 103/ul Normal 0.0-0.1 [facility] Comment on above: Performed By: #### C BC ####[facility] [address] [address]Dr. Keturah Phillip Basophils/100 WBC (Bld) 0.9 % Normal 0.2-2.0 [facility] Comment on above: Performed By: #### C BC ####[facility] [address] [place], [place] [address]Dr. Keturah Phillip EO # 0.2 103/ul Normal 0.0-0.7 [facility] Comment on above: Performed By: #### C BC ####[facility] [address] [place], [place] [address]Dr. Keturah Fisher Eosinophils/100 WBC (Bld) 2.8 % Normal 0.9-7.0 [facility] Comment on above: Performed By: #### C BC ####[facility] [address] [place], [place] [address]Dr. Elisaeli Fisher Erythrocyte distribution width (RBC) [Ratio] 12.9 % Normal 11.0-15.0 [facility] Comment on above: Performed By: #### C BC ####[facility] [address] [place], [place] [address]Dr. Keturah Fisher Hematocrit (Bld) [Volume fraction] 41.7 % Normal 36.0-48.0 [facility] Comment on above: Performed By: #### C BC ####[facility] [address] [place], [place] [address]Dr. Keturah Fisher Hemoglobin (Bld) [Mass/Vol] 14.0 g/dL Normal 12.0-16.0 [facility] Comment on above: Performed By: #### C BC ####[facility] [address] [place], [place] [address]Dr. Keturah Fisher IG # 0.01 10e3/ul Normal 0.00-0.03 [facility] Comment on above: Performed By: #### C BC ####[facility] [address] [id number]. Keturah Phillip IG % 0.1 % Normal 0.0-0.5 [facility] Comment on above: Performed By: #### C BC ####[facility] [address] [address]Dr. Keturah Phillip LYMPH # 2.4 103/ul Normal 1.2-3.8 [facility] Comment on above: Performed By: #### C BC ####[facility] [address] [id number]. Keturah Phillip Lymphocytes/100 WBC (Bld) 32.0 % Normal 20.5-60.0 [facility] Comment on above: Performed By: #### C BC ####[facility] [address] [address]Dr. Elisaeli Fisher MANUAL DIFF REQ NO Normal [facility] Comment on above: Performed By: #### C BC ####[facility] [address] [address]Dr. Keturah Phillip MCH (RBC) [Entitic mass] 32.6 pg Normal 26.7-34.0 [facility] Comment on above: Performed By: #### C BC ####[facility] [address] [place], [place] [address]Dr. Keturah Fisher MCHC (RBC) [Mass/Vol] 33.6 g/dL Normal 29.9-35.2 [facility] Comment on above: Performed By: #### C BC ####[facility] [address] [address]Dr. Keturah Phillip MCV (RBC) [Entitic vol] 97.0 fL Normal 81.0-99.0 [facility] Comment on above: Performed By: #### C BC ####[facility] [address] [place], [place] [address]Dr. Keturah Fisher MONO # 0.7 103/ul Normal 0.3-0.8 [facility] Comment on above: Performed By: #### C BC ####[facility] [address] [address]Dr. Keturah Fisher Monocytes/100 WBC (Bld) 9.5 % Normal 1.7-12.0 [facility] Comment on above: Performed By: #### C BC ####[facility] [address] [address]Dr. Keturah Fisher NEUT # 4.1 103/ul Normal 1.4-6.5 [facility] Comment on above: Performed By: #### C BC ####[facility] [address] [address]Dr. Keturah Fisher Neutrophils/100 WBC (Bld) 54.7 % Normal 43.0-75.0 [facility] Comment on above: Performed By: #### C BC ####[facility] [address] [address]Dr. Keturah Fisher Platelet mean volume (Bld) [Entitic vol] 9.6 fL Normal 9.5-13.5 [facility] Comment on above: Performed By: #### C BC ####[facility] [address] [address]Dr. Keturah Fisher PLT 235 103/ul Normal 150-450 [facility] Comment on above: Performed By: #### C BC ####[facility] [address] [address]Dr. Keturah Fisher RBC 4.30 106/ul Normal 4.20-5.40 [facility] Comment on above: Performed By: #### C BC ####[facility] [address] [id number]. Keturah Fisher WBC 7.6 103/ul Normal 4.0-11.0 [facility] Comment on above: Performed By: #### C BC ####[facility] [address] [id number]. Keturah Fisher ER URINE PROFILEon 2 Bilirubin Ql (U) Negative Normal NEGATIVE [facility] Comment on above: Performed By: #### L IPA, CMP, CRP, NAT #### [facility] [address] [address] [address] Keturah Fisher Clarity (U) CLEAR Normal CLEAR [facility] Comment on above: Performed By: #### L IPA, CMP, CRP, NAT #### [facility] [address] [place] [address] Dr. Keturah Fisher Color (U) YELLOW Normal YELLOW [facility] Comment on above: Performed By: #### L IPA, CMP, CRP, NAT #### [facility] [address] [place] [address] Dr. Keturah Fisher ERUAHD A micrscopic examination will be performed if indicated. Normal [facility] Comment on above: Performed By: #### L IPA, CMP, CRP, NAT #### [facility] [address] [place] [address] Dr. Keturah Fisher Glucose Ql (U) Negative Normal NEGATIVE [facility] Comment on above: Performed By: #### L IPA, CMP, CRP, NAT #### [facility] [address] [place] [address] Dr. Keturah Fisher Hemoglobin Ql (U) Negative Normal NEGATIVE [facility] Comment on above: Performed By: #### L IPA, CMP, CRP, NAT #### [facility] [address] [place] [address] Dr. Keturah Fisher Ketones Ql (U) Negative Normal NEGATIVE [facility] Comment on above: Performed By: #### L IPA, CMP, CRP, NTA #### [facility] [address] [place] [address] Dr. Keturah Fisher LEUKOCYTES Negative Normal NEGATIVE [facility] Comment on above: Performed By: #### L IPA, CMP, CRP, NAT #### [facility] [address] [place] [address] Dr. Keturah Fisher Nitrite Ql (U) Negative Normal NEGATIVE [facility] Comment on above: Performed By: #### L IPA, CMP, CRP, NAT #### [facility] [address] [place] [address] Dr. Keturah Fisher pH (U) 5.5 [pH] Normal 5-9 [facility] Comment on above: Performed By: #### L IPA, CMP, CRP, NAT #### [facility] [address] [place] [address] Dr. Keturah Fisher SPEC GRAVITY >=1.030 Abnormal 1.005-<=1.[address] [facility] Comment on above: Performed By: #### L IPA, CMP, CRP, NAT #### [facility] [address] [place] [address] Dr. Keturah Fisher UA PROTEIN Negative Normal NEGATIVE/ TRACE [facility] Comment on above: Performed By: #### L IPA, CMP, CRP, NAT #### [facility] [address] [place] [address] Dr. Keturah Fisher UR MICRO IND NOT INDICATED Normal [facility] Comment on above: Performed By: #### L IPA, CMP, CRP, NAT #### [facility] [address] [place] [address] Dr. Keturah Fisher Urobilinogen Qn (U) 0.2 {Marizol'U}/dL Normal 0.2 - 1. 0 [facility] Comment on above: Performed By: #### L IPA, CMP, CRP, NAT #### [facility] [address] [place] [address] Dr. Keturah Fisher LIPASEon 01-15-2022 Lipase [Catalytic activity/Vol] 572.0 U/L Critically high 73.0-393.0 [facility] Comment on above: Performed By: #### C BC #### [facility] [address] [place] [address] Dr. Keturah Fisher URon 01-15-2022 , QUAL Negative Normal NEGATIVE [facility] Comment on above: Performed By: #### L IPA, CMP, CRP, NAT #### [facility] [address] [place] [address] Dr. Keturah Fisher PROF 14(COMP METB)on 022 Albumin [Mass/Vol] 3.8 g/dL Normal 3.4-5.0 [facility] Comment on above: Performed By: #### C BC #### [facility] [address] [place] [address] Dr. Keturah Fisher Albumin/Globulin [Mass ratio] 1.1 {ratio} Normal [facility] Comment on above: Performed By: #### C BC #### [facility] [address] [place] [address] Dr. Keturah Fisher ALP [Catalytic activity/Vol] 151 U/L Critically high 46-116 [facility] Comment on above: Performed By: #### C BC #### [facility] [address] [address] [address] Keturah Fisher ALT [Catalytic activity/Vol] 14 U/L Normal 14-59 [facility] Comment on above: Performed By: #### C BC #### [facility] [address] [place] [place] [address] Dr. Keturah Fisher Anion gap [Moles/Vol] 5.5 mmol/L Normal [facility] Comment on above: Performed By: #### C BC #### [facility] [address] [place] [address] Dr. Keturah Fisher AST [Catalytic activity/Vol] 16 U/L Normal 15-37 [facility] Comment on above: Performed By: #### C BC #### [facility] [address] [place] [address] Dr. Keturah Fisher Bilirubin [Mass/Vol] 0.1 mg/dL Critically low 0.2-1.0 [facility] Comment on above: Performed By: #### C BC #### [facility] [address] [place] [address] Dr. Keturah Fisher Calcium [Mass/Vol] 9.5 mg/dL Normal 8.5-10.1 [facility] Comment on above: Performed By: #### C BC #### [facility] [address] [place] [address] Dr. Keturah Fisher Chloride [Moles/Vol] 105 mmol/L Normal 98-107 [facility] Comment on above: Performed By: #### C BC #### [facility] [address] [place] [address] Dr. Keturah Fisher CO2 [Moles/Vol] 30.0 mmol/L Normal 21.0-32.0 [facility] Comment on above: Performed By: #### C BC #### [facility] [address] [address] [address] Keturah Fisher Creatinine [Mass/Vol] 0.90 mg/dL Normal 0.55-1.02 [facility] Comment on above: Performed By: #### C BC #### [facility] [address] [address] [address] Keturah Fisher EGFR-AF KENYAN >60 Normal >=60 [facility] Comment on above: Performed By: #### C BC #### [facility] [address] [address] [address] Keturah Fisher EGFR-NON AF KENYAN >60 Normal >=60 [facility] Comment on above: Performed By: #### C BC #### [facility] [address] [place] [address] Dr. Keturah Fisher Globulin (S) [Mass/Vol] 3.4 g/dL Normal [facility] Comment on above: Performed By: #### C BC #### [facility] [address] [place] [address] Dr. Keturah Fsiher Glucose [Mass/Vol] 82 mg/dL Normal 74-106 [facility] Comment on above: Performed By: #### C BC #### [facility] [address] [place] [address] Dr. Keturah Fisher Potassium [Moles/Vol] 3.5 mmol/L Normal 3.5-5.1 [facility] Comment on above: Performed By: #### C BC #### [facility] [address] [place] [address] Dr. Keturah Fisher Protein [Mass/Vol] 7.2 g/dL Normal 6.4-8.2 [facility] Comment on above: Performed By: #### C BC #### [facility] [address] [place] [address] Dr. Keturah Fisher Sodium [Moles/Vol] 137 mmol/L Normal 136-145 [facility] Comment on above: Performed By: #### C BC #### [facility] [address] [place], [place] [address] Dr. Keturah Fisher Urea nitrogen [Mass/Vol] 12.0 mg/dL Normal 7.0-18.0 [facility] Comment on above: Performed By: #### C BC #### [facility] [address] [address] [address] Keturah Fisher Urea nitrogen/Creatinine [Mass ratio] 13.3 mg/mg Normal [facility] Comment on above: Performed By: #### C BC #### [facility] [address] [place], [place] [address] Dr. Keturah Fisher Basic Metabolic Panelon 12-07 Anion gap [Moles/Vol] 16.0 mmol/L High 6.0-15.0 [facility] Comment on above: Performed By: #### U A #### [facility] [address] Calcium [Mass/Vol] 10.2 mg/dL Normal 8.2-10.2 [facility] Comment on above: Performed By: #### U A #### [facility] [address] [place] [id number] [place] Chloride [Moles/Vol] 102 mmol/L Normal 95-114 [facility] Comment on above: Performed By: #### U A #### [facility] [address] [place] [id number] [place] CO2 [Moles/Vol] 23.6 mmol/L Normal 22.0-30.0 [facility] Comment on above: Performed By: #### U A #### [facility] [address] [place] [id number] [place] Creatinine [Mass/Vol] 0.90 mg/dL Normal 0.44-1.03 [facility] Comment on above: Performed By: #### U A #### [facility] [address] [place] [id number] [place] Creatinine Clr Calc Pharmacy 57.83 Normal [facility] Comment on above: Performed By: #### U A #### [facility] [address] [id number] [place] Estimated GFR ( [place] > 60 Normal [facility] Comment on above: Result Comment: GFR estimated reference range: According to KDOQI guidelines, <60 ml/min/1.73m2 is sufficient to diagnose a patient with chronic kidney disease. Performed By: #### U A #### [facility] [address] Estimated GFR (Non- Am > 60 Normal [facility] Comment on above: Performed By: #### U A #### [address] Glucose [Mass/Vol] 88 mg/dL Normal 70-100 [facility] Comment on above: Result Comment: [place] Glucose Reference Range is dependent on time and content of last meal. Glucose of more than 200 mg/dL in a nonstressed, ambulatory subject supports the diagnosis of Diabetes Mellitus. ADA recommended reference range Performed By: #### U A #### [address] Potassium [Moles/Vol] 3.6 mmol/L Normal 3.5-5.1 [facility] Comment on above: Performed By: #### U A #### [place] [address] [place] Sodium [Moles/Vol] 138 mmol/L Normal 136-146 [facility] Comment on above: Performed By: #### U A #### [place] [address] [place] Urea nitrogen [Mass/Vol] 7 mg/dL Low 9-23 [facility] Comment on above: Performed By: #### U A #### [address] Complete Blood Count Auto Di ffon 12-19-2021 Basophils (Bld) [#/Vol] 0.1 10*3/uL Normal 0.0-0.2 [facility] Comment on above: Result Comment: PERF ORMED BY: [place] [address] PATHOLOGIST [employer] PAULA RODRIGUES M.D. Performed By: #### U A #### [address] Basophils/100 WBC (Bld) 0.8 % Normal . [facility] Comment on above: Performed By: #### U A #### [address] Eosinophils (Bld) [#/Vol] 0.1 10*3/uL Normal 0.0-0.45 [facility] Comment on above: Performed By: #### U A #### [address] Eosinophils/100 WBC (Bld) 0.9 % Normal . [facility] Comment on above: Performed By: #### U A #### [address] Erythrocyte distribution width (RBC) [Ratio] 13.7 % Normal 11.9-15.3 [facility] Comment on above: Performed By: #### U A #### [address] Hematocrit (Bld) [Volume fraction] 44.3 % Normal 34.0-46.4 [facility] Comment on above: Performed By: #### U A #### [address] Hemoglobin (Bld) [Mass/Vol] 14.6 g/dL Normal 11.8-15.4 [facility] Comment on above: Performed By: #### U A #### [address] Lymphocytes (Bld) [#/Vol] 3.0 10*3/uL Normal 1.00-4.8 [facility] Comment on above: Performed By: #### U A #### [address] Lymphocytes/100 WBC (Bld) 24.0 % Normal . [facility] Comment on above: Performed By: #### U A #### [address] MCH (RBC) [Entitic mass] 32.2 pg Normal 24.7-34.3 [facility] Comment on above: Performed By: #### U A #### [address] MCV (RBC) [Entitic vol] 97.6 fL Normal 80-100 [facility] Comment on above: Performed By: #### U A #### [address] Mean Corpuscular HGB Conc 33.0 g/dL Normal 32.0-35.0 [facility] Comment on above: Performed By: #### U A #### [address] Monocytes (Bld) [#/Vol] 1.0 10*3/uL High 0.0-0.8 [facility] Comment on above: Performed By: #### U A #### [address] Monocytes/100 WBC (Bld) 7.6 % Normal . [facility] Comment on above: Performed By: #### U A #### [address] Neutrophils (Bld) [#/Vol] 8.5 10*3/uL High 1.8-7.7 [facility] Comment on above: Performed By: #### U A #### [address] Neutrophils/100 WBC (Bld) 66.7 % Normal . [facility] Comment on above: Performed By: #### U A #### [place] [address] [place] Nucleated RBC/100 WBC (Bld) [Ratio] 0.0 % Normal 0-0.5 [facility] Comment on above: Performed By: #### U A #### [address] Platelet mean volume (Bld) [Entitic vol] 8.2 fL Normal 6.3-10.7 [facility] Comment on above: Performed By: #### U A #### [facility] [address] [place] [address] Platelets (Bld) [#/Vol] 308 10*3/uL Normal 150-450 [facility] Comment on above: Performed By: #### U A #### [address] RBC (Bld) [#/Vol] 4.54 10*6/uL Normal 3.60-5.00 [facility] Comment on above: Performed By: #### U A #### [address] WBC (Bld) [#/Vol] 12.7 10*3/uL High 4.5-11.0 [facility] Comment on above: Performed By: #### U A #### [facility] [address] [place] [address] Hepatic Panelon 12-19-2021 Albumin [Mass/Vol] 4.0 g/dL Normal 3.2-5.5 [facility] Comment on above: Performed By: #### U A #### [facility] [address] [place] [address] Albumin/Globulin [Mass ratio] 1.4 {ratio} Normal [facility] Comment on above: Performed By: #### U A #### [facility] [address] [place] [address] ALP [Catalytic activity/Vol] 136 U/L High 32-92 [facility] Comment on above: Performed By: #### U A #### [facility] [address] [place] [address] ALT [Catalytic activity/Vol] 14 U/L Normal 10-60 [facility] Comment on above: Performed By: #### U A #### [address] AST [Catalytic activity/Vol] 25 U/L Normal 10-42 [facility] Comment on above: Performed By: #### U A #### [place] [address] Bilirubin [Mass/Vol] 0.5 mg/dL Normal 0.3-1.2 [facility] Comment on above: Performed By: #### U A #### [address] Bilirubin,Indirect 0.4 mg/dL Normal [facility] Comment on above: Performed By: #### U A #### [address] Bilirubin.indirect [Mass/Vol] 0.1 mg/dL Normal 0.0-0.4 [facility] Comment on above: Performed By: #### U A #### [address] Globulin (S) [Mass/Vol] 2.8 g/dL Normal [facility] Comment on above: Performed By: #### U A #### [address] Protein [Mass/Vol] 6.8 g/dL Normal 6.1-7.9 [facility] Comment on above: Performed By: #### U A #### [address] Lipaseon 12-19-2021 Lipase [Catalytic activity/Vol] 99.0 U/L High 22-51 [facility] Comment on above: Result Comment: PERF ORMED BY: [place] [address] PATHOLOGIST [employer] PAULA RODRIGUES M.D. Performed By: #### U A #### [address] Urinalysison 12-19-2021 Appearance (U) Clear Normal Clear [facility] Comment on above: Order Comment: Name Collection Type:: Clean-Voided Midstream Performed By: #### U A #### [address] Bilirubin,Urine Negative Normal Negative [facility] Comment on above: Order Comment: Name Collection Type:: Clean-Voided Midstream Performed By: #### U A #### [facility] [address] [place] [address] [place] Color (U) Yellow Normal Yellow [facility] Comment on above: Order Comment: Name Collection Type:: Clean-Voided Midstream Performed By: #### U A #### [facility] [address] [place] [address] Glucose Ql (U) Normal Normal Normal [facility] Comment on above: Order Comment: Name Collection Type:: Clean-Voided Midstream Performed By: #### U A #### [facility] [address] [place] [address] Ketones Ql (U) Trace High Negative [facility] Comment on above: Order Comment: Name Collection Type:: Clean-Voided Midstream Performed By: #### U A #### [facility] [address] [place] [address] Leukocyte esterase Test strip Ql (U) Negative Normal Negative [facility] Comment on above: Order Comment: Name Collection Type:: Clean-Voided Midstream Performed By: #### U A #### [facility] [address] [place] [address] [place] Nitrite,Urine Negative Normal Negative [facility] Comment on above: Order Comment: Name Collection Type:: Clean-Voided Midstream Performed By: #### U A #### [facility] [address] [place] [address] Occult Blood,Urine Negative Normal Negative [facility] Comment on above: Order Comment: Name Collection Type:: Clean-Voided Midstream Result Comment: PERF ORMED BY: [place] [address] PATHOLOGIST [employer] PAULA RODRIGUES M.D. Performed By: #### U A #### [place] [address] [place] pH (U) 5.0 [pH] Normal 5.0-9.0 [facility] Comment on above: Order Comment: Name Collection Type:: Clean-Voided Midstream Performed By: #### U A #### [facility] [address] Protein,Urine Negative Normal Negative [facility] Comment on above: Order Comment: Name Collection Type:: Clean-Voided Midstream Performed By: #### U A #### [facility] [address] [place] [address] Specificy [place],Urine 1.024 Normal 1.001-1.030 [facility] Comment on above: Order Comment: Name Collection Type:: Clean-Voided Midstream Performed By: #### U A #### [facility] [address] [place] [address] Urobilinogen,Urine Normal Normal Normal [facility] Comment on above: Order Comment: Name Collection Type:: Clean-Voided Midstream Performed By: #### U A #### [address] AMYLASEon 12-13-2021 Amylase [Catalytic activity/Vol] 268 U/L Critically high 25-115 [facility] Comment on above: Performed By: #### L IPA, CMP, CRP, NAT #### [facility] [address] [place] [address] Dr. Keturah Fisher CBC AUTO DIFFon 12-13-2021 BASO # 0.1 103/ul Normal 0.0-0.1 [facility] Comment on above: Performed By: #### L IPA, CMP, CRP, NAT #### [facility] [address] [address] [address] Keturah Fisher Basophils/100 WBC (Bld) 0.6 % Normal 0.2-2.0 [facility] Comment on above: Performed By: #### L IPA, CMP, CRP, NAT #### [facility] [address] [address] [address] Keturah Fisher EO # 0.1 103/ul Normal 0.0-0.7 [facility] Comment on above: Performed By: #### L IPA, CMP, CRP, NAT #### [facility] [address] [place] [address] Dr. Keturah Fisher Eosinophils/100 WBC (Bld) 1.2 % Normal 0.9-7.0 [facility] Comment on above: Performed By: #### L IPA, CMP, CRP, NAT #### [facility] [address] [place] [address] Dr. Keturah Fisher Erythrocyte distribution width (RBC) [Ratio] 13.2 % Normal 11.0-15.0 [facility] Comment on above: Performed By: #### L IPA, CMP, CRP, NAT #### [facility] [address] [place] [address] Dr. Keturah Fisher Hematocrit (Bld) [Volume fraction] 44.7 % Normal 36.0-48.0 [facility] Comment on above: Performed By: #### L IPA, CMP, CRP, NAT #### [facility] [address] [place] [address] Dr. Keturah Fisher Hemoglobin (Bld) [Mass/Vol] 14.7 g/dL Normal 12.0-16.0 [facility] Comment on above: Performed By: #### L IPA, CMP, CRP, NAT #### [facility] [address] [place] [address] Dr. Keturah Fisher IG # 0.03 10e3/ul Normal 0.00-0.03 [facility] Comment on above: Performed By: #### L IPA, CMP, CRP, NAT #### [facility] [address] [place] [address] Dr. Keturah Fisher IG % 0.3 % Normal 0.0-0.5 [facility] Comment on above: Performed By: #### L IPA, CMP, CRP, NAT #### [facility] [address] [place] [address] Dr. Keturah Fisher LYMPH # 3.6 103/ul Normal 1.2-3.8 [facility] Comment on above: Performed By: #### L IPA, CMP, CRP, NAT #### [facility] [address] [place] [address] Dr. Keturah Fsiher Lymphocytes/100 WBC (Bld) 32.7 % Normal 20.5-60.0 [facility] Comment on above: Performed By: #### L IPA, CMP, CRP, NAT #### [facility] [address] [place] [address] Dr. Keturah Fisher MANUAL DIFF REQ NO Normal [facility] Comment on above: Performed By: #### L IPA, CMP, CRP, NAT #### [facility] [address] [place] [address] Dr. Keturah Fisher MCH (RBC) [Entitic mass] 32.2 pg Normal 26.7-34.0 [facility] Comment on above: Performed By: #### L IPA, CMP, CRP, NAT #### [facility] [address] [place] [address] Dr. Keturah Fisher MCHC (RBC) [Mass/Vol] 32.9 g/dL Normal 29.9-35.2 [facility] Comment on above: Performed By: #### L IPA, CMP, CRP, NAT #### [facility] [address] [place] [address] Dr. Keturah Fisher MCV (RBC) [Entitic vol] 98.0 fL Normal 81.0-99.0 [facility] Comment on above: Performed By: #### L IPA, CMP, CRP, NAT #### [facility] [address] [place] [address] Dr. Keturah Fisher MONO # 1.1 103/ul Critically high 0.3-0.[address] [facility] Comment on above: Performed By: #### L IPA, CMP, CRP, NAT #### [facility] [address] [place] [address] Dr. Keturah Fisher Monocytes/100 WBC (Bld) 9.7 % Normal 1.7-12.0 [facility] Comment on above: Performed By: #### L IPA, CMP, CRP, NAT #### [facility] [address] [place] [address] Dr. Keturah Fisher NEUT # 6.1 103/ul Normal 1.4-6.5 [facility] Comment on above: Performed By: #### L IPA, CMP, CRP, NAT #### [facility] [address] [place] [address] Dr. Keturah Fisher Neutrophils/100 WBC (Bld) 55.5 % Normal 43.0-75.0 [facility] Comment on above: Performed By: #### L IPA, CMP, CRP, NAT #### [facility] [address] [place] [address] Dr. Keturah Fisher Platelet mean volume (Bld) [Entitic vol] 9.7 fL Normal 9.5-13.5 [facility] Comment on above: Performed By: #### L IPA, CMP, CRP, NAT #### [facility] [address] [address] [address] Keturah Fisher PLT 274 103/ul Normal 150-450 [facility] Comment on above: Performed By: #### L IPA, CMP, CRP, NAT #### [facility] [address] [place] [address] Dr. Keturah Fisher RBC 4.56 106/ul Normal 4.20-5.40 [facility] Comment on above: Performed By: #### L IPA, CMP, CRP, NAT #### [facility] [address] [place] [address] Dr. Keturah Fisher WBC 10.9 103/ul Normal 4.0-11.0 [facility] Comment on above: Performed By: #### L IPA, CMP, CRP, NAT #### [facility] [address] [place] [address] Dr. Keturah Fisher CRPon 12-13-2021 CRP [Mass/Vol] mg/L Normal <=1.0 [facility] Comment on above: Performed By: #### L IPA, CMP, CRP, NAT #### [facility] [address] [place] [address] ABD/PELV W CONon [...] AGUSTIN HIGHTOWER Date: 2021-12-13 20:[address] [facility] LIPASEon 12-13-2021 Lipase [Catalytic activity/Vol] 1496.0 U/L Critically high 73.0-393.0 [facility] Comment on above: Performed By: #### L IPA, CMP, CRP, NAT #### [facility] [address] [place], [place] [address] Dr. Keturah Fisher PROF 14(COMP METB)on 022 Albumin [Mass/Vol] 4.0 g/dL Normal 3.4-5.0 [facility] Comment on above: Performed By: #### L IPA, CMP, CRP, NAT #### [facility] [address] [place], [place] [address] Dr. Keturah Fisher Albumin/Globulin [Mass ratio] 1.0 {ratio} Normal [facility] Comment on above: Performed By: #### L IPA, CMP, CRP, NAT #### [facility] [address] [place] [address] Dr. Keturah Fisher ALP [Catalytic activity/Vol] 166 U/L Critically high 46-116 [facility] Comment on above: Performed By: #### L IPA, CMP, CRP, NAT #### [facility] [address] [place] [address] Dr. Keturah Fisher ALT [Catalytic activity/Vol] 19 U/L Normal 14-59 [facility] Comment on above: Performed By: #### L IPA, CMP, CRP, NAT #### [facility] [address] [place] [address] Dr. Keturah Fisher Anion gap [Moles/Vol] 9.5 mmol/L Normal [facility] Comment on above: Performed By: #### L IPA, CMP, CRP, NAT #### [facility] [address] [place] [address] Dr. Keturah Fisher AST [Catalytic activity/Vol] 16 U/L Normal 15-37 [facility] Comment on above: Performed By: #### L IPA, CMP, CRP, NAT #### [facility] [address] [place] [address] Dr. Keturah Fisher Bilirubin [Mass/Vol] 0.1 mg/dL Critically low 0.2-1.0 [facility] Comment on above: Performed By: #### L IPA, CMP, CRP, NAT #### [facility] [address] [place] [address] Dr. Keturah Fisher Calcium [Mass/Vol] 9.6 mg/dL Normal 8.5-10.1 [facility] Comment on above: Performed By: #### L IPA, CMP, CRP, NAT #### [facility] [address] [place] [address] Dr. Keturah Fisher Chloride [Moles/Vol] 104 mmol/L Normal 98-107 [facility] Comment on above: Performed By: #### L IPA, CMP, CRP, NAT #### [facility] [address] [address] [address] Keturah Fisher CO2 [Moles/Vol] 29.7 mmol/L Normal 21.0-32.0 [facility] Comment on above: Performed By: #### L IPA, CMP, CRP, NAT #### [facility] [address] [address] [address] Keturah Fisher Creatinine [Mass/Vol] 0.85 mg/dL Normal 0.55-1.02 [facility] Comment on above: Performed By: #### L IPA, CMP, CRP, NAT #### [facility] [address] [address] [address] Keturah Fisher EGFR-AF KENYAN >60 Normal >=60 [facility] Comment on above: Performed By: #### L IPA, CMP, CRP, NAT #### [facility] [address] [place] [address] Dr. Keturah Fisher EGFR-NON AF KENYAN >60 Normal >=60 [facility] Comment on above: Performed By: #### L IPA, CMP, CRP, NAT #### [facility] [address] [address] [address] Keturah Fisher Globulin (S) [Mass/Vol] 3.9 g/dL Normal [facility] Comment on above: Performed By: #### L IPA, CMP, CRP, NAT #### [facility] [address] [address] [address] Keturah Fisher Glucose [Mass/Vol] 70 mg/dL Critically low 74-106 [facility] Comment on above: Performed By: #### L IPA, CMP, CRP, NAT #### [facility] [address] [address] [address] Keturah Fisher Potassium [Moles/Vol] 3.2 mmol/L Critically low 3.5-5.1 [facility] Comment on above: Performed By: #### L IPA, CMP, CRP, NAT #### [facility] [address] [address] [address] Keturah Fisher Protein [Mass/Vol] 7.9 g/dL Normal 6.4-8.2 [facility] Comment on above: Performed By: #### L IPA, CMP, CRP, NAT #### [facility] [address] [place] [address] Dr. Keturah Fisher Sodium [Moles/Vol] 140 mmol/L Normal 136-145 [facility] Comment on above: Performed By: #### L IPA, CMP, CRP, NAT #### [facility] [address] [place] [place] [address] Dr. Keturah Fisher Urea nitrogen [Mass/Vol] 8.0 mg/dL Normal 7.0-18.0 [facility] Comment on above: Performed By: #### L IPA, CMP, CRP, NAT #### [facility] [address] [place] [address] Dr. Keturah Fisher Urea nitrogen/Creatinine [Mass ratio] 9.4 mg/mg Normal [facility] Comment on above: Performed By: #### L IPA, CMP, CRP, NAT #### [facility] [address] [place] [address] Dr. Keturah Fisher AMYLASEon 12-05-2021 Amylase [Catalytic activity/Vol] 223 U/L Critically high 25-115 [facility] Comment on above: Performed By: #### L IPA, CMP, CRP, NAT #### [facility] [address] [place] [address] Dr. Keturah Fisher CBC AUTO DIFFon 12-05-2021 BASO # 0.1 103/ul Normal 0.0-0.1 [facility] Comment on above: Performed By: #### C BC #### [facility] [address] [place] [address] Dr. Keturah Fisher Basophils/100 WBC (Bld) 0.7 % Normal 0.2-2.0 [facility] Comment on above: Performed By: #### C BC #### [facility] [address] [place] [address] Dr. Keturah Fisher EO # 0.2 103/ul Normal 0.0-0.7 [facility] Comment on above: Performed By: #### C BC #### [facility] [address] [place] [address] Dr. Keturah Fisher Eosinophils/100 WBC (Bld) 1.7 % Normal 0.9-7.0 [facility] Comment on above: Performed By: #### C BC #### [facility] [address] [place] [address] Dr. Keturah Fisher Erythrocyte distribution width (RBC) [Ratio] 13.0 % Normal 11.0-15.0 [facility] Comment on above: Performed By: #### C BC #### [facility] [address] [place] [address] Dr. Keturah Fisher Hematocrit (Bld) [Volume fraction] 44.9 % Normal 36.0-48.0 [facility] Comment on above: Performed By: #### C BC #### [facility] [address] [place] [address] Dr. Keturah Fisher Hemoglobin (Bld) [Mass/Vol] 15.1 g/dL Normal 12.0-16.0 [facility] Comment on above: Performed By: #### C BC #### [facility] [address] [place] [address] Dr. Keturah Fisher IG # 0.02 10e3/ul Normal 0.00-0.03 [facility] Comment on above: Performed By: #### C BC #### [facility] [address] [place] [address] Dr. Keturah Fisher IG % 0.2 % Normal 0.0-0.5 [facility] Comment on above: Performed By: #### C BC #### [facility] [address] [place] [address] Dr. Keturah Fisher LYMPH # 2.8 103/ul Normal 1.2-3.8 [facility] Comment on above: Performed By: #### C BC #### [facility] [address] [place] [address] Dr. Keturah Fisher Lymphocytes/100 WBC (Bld) 29.8 % Normal 20.5-60.0 [facility] Comment on above: Performed By: #### C BC #### [facility] [address] [place] [address] Dr. Keturah Fisher MANUAL DIFF REQ NO Normal [facility] Comment on above: Performed By: #### C BC #### [facility] [address] [place] [address] Dr. Keturah Fisher MCH (RBC) [Entitic mass] 32.4 pg Normal 26.7-34.0 [facility] Comment on above: Performed By: #### C BC #### [facility] [address] [place] [address] Dr. Keturah Fisher MCHC (RBC) [Mass/Vol] 33.6 g/dL Normal 29.9-35.2 [facility] Comment on above: Performed By: #### C BC #### [facility] [address] [place] [address] Dr. Keturah Fisher MCV (RBC) [Entitic vol] 96.4 fL Normal 81.0-99.0 [facility] Comment on above: Performed By: #### C BC #### [facility] [address] [place] [address] Dr. Keturah Fisher MONO # 0.6 103/ul Normal 0.3-0.8 [facility] Comment on above: Performed By: #### C BC #### [facility] [address] [place] [address] Dr. Keturah Fisher Monocytes/100 WBC (Bld) 6.3 % Normal 1.7-12.0 [facility] Comment on above: Performed By: #### C BC #### [facility] [address] [place] [address] Dr. Keturah Fisher NEUT # 5.7 103/ul Normal 1.4-6.5 [facility] Comment on above: Performed By: #### C BC #### [facility] [address] [place] [address] Dr. Keturah Fisher Neutrophils/100 WBC (Bld) 61.3 % Normal 43.0-75.0 [facility] Comment on above: Performed By: #### C BC #### [facility] [address] [place] [address] Dr. Keturah Fisher Platelet mean volume (Bld) [Entitic vol] 10.7 fL Normal 9.5-13.5 [facility] Comment on above: Performed By: #### C BC #### [facility] [address] [place] [address] Dr. Keturah Fisher PLT 217 103/ul Normal 150-450 [facility] Comment on above: Performed By: #### C BC #### [facility] [address] [place] [address] Dr. Keturah Fisher RBC 4.66 106/ul Normal 4.20-5.40 [facility] Comment on above: Performed By: #### C BC #### [facility] [address] [place] [address] Dr. Keturah Fisher WBC 9.2 103/ul Normal 4.0-11.0 [facility] Comment on above: Performed By: #### C BC #### [facility] [address] [place] [address] Dr. Keturah Fisher LIPASEon 12-05-2021 Lipase [Catalytic activity/Vol] 725.0 U/L Critically high 73.0-393.0 [facility] Comment on above: Performed By: #### L IPA, CMP, CRP, NAT #### [facility] [address] [place] [address] Dr. Keturah Fisher PROF 14(COMP METB)on 022 Albumin [Mass/Vol] 4.2 g/dL Normal 3.4-5.0 [facility] Comment on above: Performed By: #### L IPA, CMP, CRP, NAT #### [facility] [address] [place] [address] Dr. Keturah Fisher Albumin/Globulin [Mass ratio] 1.2 {ratio} Normal [facility] Comment on above: Performed By: #### L IPA, CMP, CRP, NAT #### [facility] [address] [place] [address] Dr. Keturah Fisher ALP [Catalytic activity/Vol] 158 U/L Critically high 46-116 [facility] Comment on above: Performed By: #### L IPA, CMP, CRP, NAT #### [facility] [address] [address] [address] Keturah Fisher ALT [Catalytic activity/Vol] 20 U/L Normal 14-59 [facility] Comment on above: Performed By: #### L IPA, CMP, CRP, NAT #### [facility] [address] [address] [address] Keturah Fisher Anion gap [Moles/Vol] 14.0 mmol/L Normal [facility] Comment on above: Performed By: #### L IPA, CMP, CRP, NAT #### [facility] [address] [address] [address] Keturah Fisher AST [Catalytic activity/Vol] 27 U/L Normal 15-37 [facility] Comment on above: Performed By: #### L IPA, CMP, CRP, NAT #### [facility] [address] [place] [address] Dr. Keturah Fisher Bilirubin [Mass/Vol] 0.3 mg/dL Normal 0.2-1.0 [facility] Comment on above: Performed By: #### L IPA, CMP, CRP, NAT #### [facility] [address] [address] [address] Keturah Fisher Calcium [Mass/Vol] 10.1 mg/dL Normal 8.5-10.1 [facility] Comment on above: Performed By: #### L IPA, CMP, CRP, NAT #### [facility] [address] [address] [address] Keturah Fisher Chloride [Moles/Vol] 105 mmol/L Normal 98-107 [facility] Comment on above: Performed By: #### L IPA, CMP, CRP, NAT #### [facility] [address] [address] [address] Keturah Fisher CO2 [Moles/Vol] 24.9 mmol/L Normal 21.0-32.0 [facility] Comment on above: Performed By: #### L IPA, CMP, CRP, NAT #### [facility] [address] [address] [address] Keturah Fisher Creatinine [Mass/Vol] 0.77 mg/dL Normal 0.55-1.02 [facility] Comment on above: Performed By: #### L IPA, CMP, CRP, NAT #### [facility] [address] [place] [address] Dr. Keturah Fisher EGFR-AF KENYAN >60 Normal >=60 [facility] Comment on above: Performed By: #### L IPA, CMP, CRP, NAT #### [facility] [address] [address] [address] Keturah Fisher EGFR-NON AF KENYAN >60 Normal >=60 [facility] Comment on above: Performed By: #### L IPA, CMP, CRP, NAT #### [facility] [address] [place] [address] Dr. Keturah Fisher Globulin (S) [Mass/Vol] 3.5 g/dL Normal [facility] Comment on above: Performed By: #### L IPA, CMP, CRP, NAT #### [facility] [address] [place] [address] Dr. Keturah Fisher Glucose [Mass/Vol] 91 mg/dL Normal 74-106 [facility] Comment on above: Performed By: #### L IPA, CMP, CRP, NAT #### [facility] [address] [place] [address] Dr. Keturah Fisher Potassium [Moles/Vol] 3.9 mmol/L Normal 3.5-5.1 [facility] Comment on above: Performed By: #### L IPA, CMP, CRP, NAT #### [facility] [address] [place] [address] Dr. Keturah Fisher Protein [Mass/Vol] 7.7 g/dL Normal 6.4-8.2 [facility] Comment on above: Performed By: #### L IPA, CMP, CRP, NAT #### [facility] [address] [place] [address] Dr. Keturah Fisher Sodium [Moles/Vol] 140 mmol/L Normal 136-145 [facility] Comment on above: Performed By: #### L IPA, CMP, CRP, NAT #### [facility] [address] [place] [address] Dr. Keturah Fisher Urea nitrogen [Mass/Vol] 8.0 mg/dL Normal 7.0-18.0 [facility] Comment on above: Performed By: #### L IPA, CMP, CRP, NAT #### [facility] [address] [place] [address] Dr. Keturah Fisher Urea nitrogen/Creatinine [Mass ratio] 10.4 mg/mg Normal [facility] Comment on above: Performed By: #### L IPA, CMP, CRP, NAT #### [facility] [address] [place] [address] Dr. Keturah Fisher AMYLASEon 10-11-2021 Amylase [Catalytic activity/Vol] 134 U/L Critically high 25-115 [facility] Comment on above: Performed By: #### C BC #### [facility] [address] [place] [address] Dr. Keturah Fisher CBC AUTO DIFFon 10-11-2021 BASO # 0.1 103/ul Normal 0.0-0.1 [facility] Comment on above: Performed By: #### L IPA, CMP, CRP, NAT #### [facility] [address] [place] [address] Dr. Keturah Fisher Basophils/100 WBC (Bld) 1.0 % Normal 0.2-2.0 [facility] Comment on above: Performed By: #### L IPA, CMP, CRP, NAT #### [facility] [address] [place] [address] Dr. Keturah Fisher EO # 0.2 103/ul Normal 0.0-0.7 [facility] Comment on above: Performed By: #### L IPA, CMP, CRP, NAT #### [facility] [address] [place] [address] Dr. Keturah Fisher Eosinophils/100 WBC (Bld) 2.0 % Normal 0.9-7.0 [facility] Comment on above: Performed By: #### L IPA, CMP, CRP, NAT #### [facility] [address] [place] [address] Dr. Keturah Fisher Erythrocyte distribution width (RBC) [Ratio] 13.2 % Normal 11.0-15.0 [facility] Comment on above: Performed By: #### L IPA, CMP, CRP, NAT #### [facility] [address] [place] [address] Dr. Keturah Fisher Hematocrit (Bld) [Volume fraction] 44.7 % Normal 36.0-48.0 [facility] Comment on above: Performed By: #### L IPA, CMP, CRP, NAT #### [facility] [address] [place] [address] Dr. Keturah Fisher Hemoglobin (Bld) [Mass/Vol] 15.0 g/dL Normal 12.0-16.0 [facility] Comment on above: Performed By: #### L IPA, CMP, CRP, NAT #### [facility] [address] [place] [address] Dr. Keturah Fisher IG # 0.02 10e3/ul Normal 0.00-0.03 [facility] Comment on above: Performed By: #### L IPA, CMP, CRP, NAT #### [facility] [address] [place] [address] Dr. Keturah Fisher IG % 0.2 % Normal 0.0-0.5 [facility] Comment on above: Performed By: #### L IPA, CMP, CRP, NAT #### [facility] [address] [place] [address] Dr. Keturah Fisher LYMPH # 4.1 103/ul Critically high 1.2-3.8 [facility] Comment on above: Performed By: #### L IPA, CMP, CRP, NAT #### [facility] [address] [place] [address] Dr. Keturah Fisher Lymphocytes/100 WBC (Bld) 38.9 % Normal 20.5-60.0 [facility] Comment on above: Performed By: #### L IPA, CMP, CRP, NAT #### [facility] [address] [place] [address] Dr. Keturah Fisher MANUAL DIFF REQ NO Normal [facility] Comment on above: Performed By: #### L IPA, CMP, CRP, NAT #### [facility] [address] [place] [address] Dr. Keturah Fisher MCH (RBC) [Entitic mass] 32.1 pg Normal 26.7-34.0 [facility] Comment on above: Performed By: #### L IPA, CMP, CRP, NAT #### [facility] [address] [place] [address] Dr. Keturah Fisher MCHC (RBC) [Mass/Vol] 33.6 g/dL Normal 29.9-35.2 [facility] Comment on above: Performed By: #### L IPA, CMP, CRP, NAT #### [facility] [address] [place] [address] Dr. Keturah Fisher MCV (RBC) [Entitic vol] 95.7 fL Normal 81.0-99.0 [facility] Comment on above: Performed By: #### L IPA, CMP, CRP, NAT #### [facility] [address] [place] [address] Dr. Keturah Fisher MONO # 0.9 103/ul Critically high 0.3-0.[address] [facility] Comment on above: Performed By: #### L IPA, CMP, CRP, NAT #### [facility] [address] [place] [address] Dr. Keturah Fisher Monocytes/100 WBC (Bld) 8.8 % Normal 1.7-12.0 [facility] Comment on above: Performed By: #### L IPA, CMP, CRP, NAT #### [facility] [address] [place] [address] Dr. Keturah Fisher NEUT # 5.2 103/ul Normal 1.4-6.5 [facility] Comment on above: Performed By: #### L IPA, CMP, CRP, NAT #### [facility] [address] [place] [address] Dr. Keturah Fisher Neutrophils/100 WBC (Bld) 49.1 % Normal 43.0-75.0 [facility] Comment on above: Performed By: #### L IPA, CMP, CRP, NAT #### [facility] [address] [place] [address] Dr. Keturah Fisher Platelet mean volume (Bld) [Entitic vol] 9.8 fL Normal 9.5-13.5 [facility] Comment on above: Performed By: #### L IPA, CMP, CRP, NAT #### [facility] [address] [place] [address] Dr. Keturah Fisher PLT 299 103/ul Normal 150-450 [facility] Comment on above: Performed By: #### L IPA, CMP, CRP, NAT #### [facility] [address] [place] [address] Dr. Keturah Fisher RBC 4.67 106/ul Normal 4.20-5.40 [facility] Comment on above: Performed By: #### L IPA, CMP, CRP, NAT #### [facility] [address] [place] [address] Dr. Keturah Fisher WBC 10.5 103/ul Normal 4.0-11.0 [facility] Comment on above: Performed By: #### L IPA, CMP, CRP, NTA #### [facility] [address] [place] [address] Dr. Keturah Fisher LIPASEon 10-11-2021 Lipase [Catalytic activity/Vol] 240.0 U/L Normal 73.0-393.0 [facility] Comment on above: Performed By: #### C BC #### [facility] [address] [place] [address] Dr. Keturah Fisher PROF 14(COMP METB)on 022 Albumin [Mass/Vol] 4.3 g/dL Normal 3.4-5.0 [facility] Comment on above: Performed By: #### C BC #### [facility] [address] [place] [address] Dr. Keturah Fisher Albumin/Globulin [Mass ratio] 1.3 {ratio} Normal [facility] Comment on above: Performed By: #### C BC #### [facility] [address] [place] [address] Dr. Keturah Fisher ALP [Catalytic activity/Vol] 162 U/L Critically high 46-116 [facility] Comment on above: Performed By: #### C BC #### [facility] [address] [address] [address] Keturah Fisher ALT [Catalytic activity/Vol] 21 U/L Normal 14-59 [facility] Comment on above: Performed By: #### C BC #### [facility] [address] [address] [address] Keturah Fisher Anion gap [Moles/Vol] 15.1 mmol/L Normal [facility] Comment on above: Performed By: #### C BC #### [facility] [address] [address] [address] Keturah Fisher AST [Catalytic activity/Vol] 16 U/L Normal 15-37 [facility] Comment on above: Performed By: #### C BC #### [facility] [address] [place] [address] Dr. Keturah Fisher Bilirubin [Mass/Vol] 0.2 mg/dL Normal 0.2-1.0 [facility] Comment on above: Performed By: #### C BC #### [facility] [address] [place] [address] Dr. Keturah Fisher Calcium [Mass/Vol] 9.6 mg/dL Normal 8.5-10.1 [facility] Comment on above: Performed By: #### C BC #### [facility] [address] [place] [address] Dr. Keturah Fisher Chloride [Moles/Vol] 104 mmol/L Normal 98-107 [facility] Comment on above: Performed By: #### C BC #### [facility] [address] [place] [address] Dr. Keutrah Fisher CO2 [Moles/Vol] 24.6 mmol/L Normal 21.0-32.0 [facility] Comment on above: Performed By: #### C BC #### [facility] [address] [place] [address] Dr. Keturah Fisher Creatinine [Mass/Vol] 0.88 mg/dL Normal 0.55-1.02 [facility] Comment on above: Performed By: #### C BC #### [facility] [address] [address] [address] Keturah Fisher EGFR-AF KENYAN >60 Normal >=60 [facility] Comment on above: Performed By: #### C BC #### [facility] [address] [address] [address] Keturah Fisher EGFR-NON AF KENYAN >60 Normal >=60 [facility] Comment on above: Performed By: #### C BC #### [facility] [address] [address] [address] Keturah Fisher Globulin (S) [Mass/Vol] 3.3 g/dL Normal [facility] Comment on above: Performed By: #### C BC #### [facility] [address] [address] [address] Keturah Fisher Glucose [Mass/Vol] 111 mg/dL Critically high 74-106 [facility] Comment on above: Performed By: #### C BC #### [facility] [address] [place] [address] Dr. Keturah Fisher Potassium [Moles/Vol] 3.7 mmol/L Normal 3.5-5.1 [facility] Comment on above: Performed By: #### C BC #### [facility] [address] [place] [address] Dr. Keturah Fisher Protein [Mass/Vol] 7.6 g/dL Normal 6.4-8.2 [facility] Comment on above: Performed By: #### C BC #### [facility] [address] [place] [address] Dr. Keturah Fisher Sodium [Moles/Vol] 140 mmol/L Normal 136-145 [facility] Comment on above: Performed By: #### C BC #### [facility] [address] [place] [address] Dr. Keturah Fisher Urea nitrogen [Mass/Vol] 11.0 mg/dL Normal 7.0-18.0 [facility] Comment on above: Performed By: #### C BC #### [facility] [address] [address] [address] Keturah Fisher Urea nitrogen/Creatinine [Mass ratio] 12.5 mg/mg Normal [facility] Comment on above: Performed By: #### C BC #### [facility] [address] [place], [place] [address] Dr. Keturah Fisher PROTIMEon 10-11-2021 INR Coag (PPP) [Relative time] 0.94 {INR} Normal [facility] Comment on above: Performed By: #### P T, PTT ####[facility] [id number] [address]Dr. Keturah Fisher INR GUIDELINES SEE BELOW Normal [facility] Comment on above: Result Comment: KARLY RED INR: 2.0 - 3.0 CONDITIONS NOT LISTED BELOW 2.5 - 3.5 FOR PROSTHETIC HEART VALVE REPLACEMENT 2.5 - 3.5 RECURRENT THROMBOSIS Performed By: #### P T, PTT ####[facility] [address] [id number] Keturah Fisher PT Coag (PPP) [Time] 10.2 s Normal 9.0-11.6 [facility] Comment on above: Performed By: #### P T, PTT ####[facility] [id number] [id number] Keturah Fisher PTTon 10-11-2021 aPTT Coag (Bld) [Time] 28.0 s Normal 22.3-36.2 [facility] Comment on above: Performed By: #### P T, PTT ####[facility] [address] [id number] Fisher Amphetamine Screen Ql (U)Ord ered By: Christa Lopez on 10-09-2021 Amphetamines Ql (U) Negative Negative [facility] Barbiturates [Presence] in U rineOrdered By: Christa Lopez on 10-09-2021 Barbiturates Ql (U) Negative Negative [facility] Basophils Auto (Bld) [#/Vol] Ordered By: Christa Lopez on 10-09-2021 Basophils (Bld) [#/Vol] 0.1 10*3/uL 0.0-0.2 [facility] Basophils/100 WBC Auto (Bld) Ordered By: Christa Lopez on 10-09-2021 Basophils/100 WBC (Bld) 0.9 % . [facility] Benzodiazepines [Presence] i n UrineOrdered By: Christa Lopez on 10-09-2021 Benzodiazepines Ql (U) Negative Negative [facility] Bilirubin Auto test strip Ql (U)Ordered By: Christa Lopez on 10-09-2021 Bilirubin Ql (U) Negative Negative [facility] Blood hemoglobin measurement (mass/volume)Ordered By: Christa Lopez on 10-09-2021 Hemoglobin (Bld) [Mass/Vol] 15.7 g/dL 11.8-15.4 [facility] Blood leukocytes automated c ount (number/volume)Ordered By: Christa Lopez on 10-09-2021 WBC (Bld) [#/Vol] 10.1 10*3/uL 4.5-11.0 [facility] Body fluid albumin measureme nt (mass/volume)Ordered By: Christa Lopez on 10-09-2021 Albumin (Body fld) [Mass/Vol] 4.5 g/dL 3.2-5.5 [facility] Cannabinoids [Presence] in U rine by Screen methodOrdered By: Christa Lopez on 10-09-2021 Cannabinoids Screen Ql (U) Negative Negative [facility] Comment on above: These are unconfirme d results and should not be used for legal purposes. Drug Cut-Off Concentration: AMPH 1000 ng/mL BAILEY 200 ng/mL JAKE 200 ng/mL COCM 300 ng/mL OP 300 ng/mL PCP 25 ng/mL THC 20 ng/mL Creatinine and Glomerular fi ltration rate.predicted panel (S/P/Bld)Ordered By: Christa Lopez on 10-09-2021 Creatinine [Mass/Vol] 0.85 mg/dL 0.44-1.03 [facility] Eosinophils Auto (Bld) [#/Vo l]Ordered By: Christa Lopez on 10-09-2021 Eosinophils (Bld) [#/Vol] 0.1 10*3/uL 0.0-0.45 [facility] Eosinophils/100 WBC Auto (Bl d)Ordered By: Christa Lopez on 10-09-2021 Eosinophils/100 WBC (Bld) 1.2 % . [facility] Erythrocyte distribution wid th Auto (RBC) [Ratio]Ordered By: Christa Lopez on 10-09-2021 Erythrocyte distribution width (RBC) [Ratio] 13.5 % 11.9-15.3 [facility] Estimated glomerular filtrat ion rate (GFR) non- AmericanOrdered By: Christa Lopez on 10-09-2021 GFR/1.73 sq M.predicted among non-blacks MDRD (S/P/Bld) [Vol rate/Area] > 60 mL/Min [facility] Globulin Calc (S) [Mass/Vol] Ordered By: Christa Lopez on 10-09-2021 Globulin (S) [Mass/Vol] 2.9 g/dL [facility] [facility] Hematocrit Auto (Bld) [Volum e fraction]Ordered By: Christa Lopez on 10-09-2021 Hematocrit (Bld) [Volume fraction] 47.1 % 34.0-46.4 [facility] Ketones Auto test strip (U) [Mass/Vol]Ordered By: Christa Lopez on 10-09-2021 Ketones (U) [Mass/Vol] Negative Negative [facility] Laboratory - Chemistry and C hemistry - challengeOrdered By: Christa Lopez on 10-09-2021 Lipase [Catalytic activity/Vol] 242.0 U/L 22-51 [facility] Laboratory - Drug toxicology Ordered By: Christa Lopez on 10-09-2021 Opiates Ql (U) Negative Negative [facility] Laboratory - Hematology and Cell countsOrdered By: Christa Lopez on 10-09-2021 Nucleated RBC/100 WBC (Bld) [Ratio] 0.1 % 0-0.5 [facility] Lymphocytes Auto (Bld) [#/Vo l]Ordered By: Christa Lopez on 10-09-2021 Lymphocytes (Bld) [#/Vol] 2.6 10*3/uL 1.00-4.8 [facility] Lymphocytes/100 WBC Auto (Bl d)Ordered By: Christa Lopez on 10-09-2021 Lymphocytes/100 WBC (Bld) 26.0 % . [facility] MCH Auto (RBC) [Entitic mass ]Ordered By: Christa Lopez on 10-09-2021 MCH (RBC) [Entitic mass] 32.4 pg 24.7-34.3 [facility] MCHC Auto (RBC) [Mass/Vol]Or dered By: Christa Lopez on 10-09-2021 MCHC (RBC) [Mass/Vol] 33.3 g/dL 32.0-35.0 [facility] MCV Auto (RBC) [Entitic vol] Ordered By: Christa Lopez on 10-09-2021 MCV (RBC) [Entitic vol] 97.3 fL 80-100 [facility] Monocytes Auto (Bld) [#/Vol] Ordered By: Christa Lopez on 10-09-2021 Monocytes (Bld) [#/Vol] 0.8 10*3/uL 0.0-0.8 [facility] Monocytes/100 WBC Auto (Bld) Ordered By: Christa Lopez on 10-09-2021 Monocytes/100 WBC (Bld) 7.6 % . [facility] Neutrophils Auto (Bld) [#/Vo l]Ordered By: Christa Lopez on 10-09-2021 Neutrophils (Bld) [#/Vol] 6.5 10*3/uL 1.8-7.7 [facility] Neutrophils/100 WBC Auto (Bl d)Ordered By: Christa Lopez on 10-09-2021 Neutrophils/100 WBC (Bld) 64.3 % . [facility] No Panel InformationOrdered By: Christa Lopez on 10-09-2021 Estimated GFR () > 60 mL/Min [facility] Comment on above: GFR estimated refere nce range: According to KDOQI guidelines, <60 ml/min/1.73m2 is sufficient to diagnose a patient with chronic kidney disease. Pharmacy Creatinine Clearance (Chem 61.23 [facility] Phencyclidine Screen Ql (U)O rdered By: Christa Lopez on 10-09-2021 Phencyclidine Ql (U) Negative Negative [facility] Platelet mean volume Auto (B ld) [Entitic vol]Ordered By: Christa Lopez on 10-09-2021 Platelet mean volume (Bld) [Entitic vol] 8.5 fL 6.3-10.7 [facility] Platelets Auto (Bld) [#/Vol] Ordered By: Christa Lopez on 10-09-2021 Platelets (Bld) [#/Vol] 284 10*3/uL 150-450 [facility] Protein Auto test strip (U) [Mass/Vol]Ordered By: Christa Lopez on 10-09-2021 Protein (U) [Mass/Vol] Negative Negative [facility] Protein [Mass/volume] in Ser um or PlasmaOrdered By: Christa Lopez on 10-09-2021 Protein [Mass/Vol] 7.4 g/dL 6.1-7.9 [facility] RBC Auto (Bld) [#/Vol]Ordere d By: Christa Lopez on 10-09-2021 RBC (Bld) [#/Vol] 4.84 10*6/uL 3.60-5.00 [facility] Serum or plasma alanine hughes otransferase measurement without P-5'-P (enzymatic activiOrdered By: Christa Lopez on 10-09-2021 ALT No additional P-5'-P [Catalytic activity/Vol] 19 U/L 10-60 [facility] Serum or plasma albumin/glob ulin mass ratioOrdered By: Christa Lopez on 10-09-2021 Albumin/Globulin [Mass ratio] 1.6 {ratio} [facility] Serum or plasma alkaline jaqueline sphatase measurement (enzymatic activity/volume)Ordered By: Christa Lopez on 10-09-2021 ALP [Catalytic activity/Vol] 138 U/L 32-92 [facility] Serum or plasma aspartate am inotransferase measurement (enzymatic activity/volume)Ordered By: Christa Lopez on 10-09-2021 AST [Catalytic activity/Vol] 31 U/L 10-42 [facility] Serum or plasma calcium priscilla urement (mass/volume)Ordered By: Christa Lopez on 10-09-2021 Calcium [Mass/Vol] 10.3 mg/dL 8.2-10.2 [facility] Serum or plasma chloride daron surement (moles/volume)Ordered By: Christa Lopez on 10-09-2021 Chloride [Moles/Vol] 100 mmol/L 95-114 [facility] Serum or plasma glucose priscilla urement (mass/volume)Ordered By: Christa Lopez on 10-09-2021 Glucose [Mass/Vol] 75 mg/dL 70-100 [facility] Comment on above: ADA recommended refe rence range Random Glucose Reference Range is dependent on time and content of last meal. Glucose of more than 200 mg/dL in a nonstressed, ambulatory subject supports the diagnosis of Diabetes Mellitus. Serum or plasma potassium me asurement (moles/volume)Ordered By: Christa Lopez on 10-09-2021 Potassium [Moles/Vol] 3.9 mmol/L 3.5-5.1 [facility] Serum or plasma sodium measu rement (moles/volume)Ordered By: Christa Lopez on 10-09-2021 Sodium [Moles/Vol] 136 mmol/L 136-146 [facility] Serum or plasma total biliru bin measurement (mass/volume)Ordered By: Christa Lopez on 10-09-2021 Bilirubin [Mass/Vol] 0.4 mg/dL 0.3-1.2 [facility] Serum or plasma total carbon dioxide measurement (moles/volume)Ordered By: Christa Lopez on 10-09-2021 CO2 [Moles/Vol] 24.1 mmol/L 22.0-30.0 [facility] Serum or plasma urea nitroge n measurement (mass/volume)Ordered By: Christa Lopez on 10-09-2021 Urea nitrogen [Mass/Vol] 12 mg/dL 9-23 [facility] Troponin I.cardiac [Mass/vol ume] in Serum or Plasma by High sensitivity methodOrdered By: Christa Lopez on 10-09-2021 Troponin I.cardiac High sensitivity method [Mass/Vol] 3 pg/mL 0-15 [facility] Urine appearanceOrdered By: Christa Lopez on 10-09-2021 Appearance (U) Clear Clear [facility] Urine cocaine detectionOrder ed By: Christa Lopez on 10-09-2021 Cocaine Ql (U) Negative Negative [facility] Urine colorOrdered By: Christa Lopez on 10-09-2021 Color (U) Yellow Yellow [facility] Urine glucose measurement by automated test strip (mass/volume)Ordered By: Christa Lopez on 10-09-2021 Glucose Auto test strip (U) [Mass/Vol] Normal mg/dL Normal [facility] Urine hemoglobin detection b y automated test stripOrdered By: Christa Lopez on 10-09-2021 Hemoglobin Auto test strip Ql (U) Negative Negative [facility] Urine leukocyte esterase det ection by automated test stripOrdered By: Christa Lopez on 10-09-2021 Leukocyte esterase Auto test strip Ql (U) Negative Negative [facility] Urine nitrite detection by a utomated test stripOrdered By: Christa Lopez on 10-09-2021 Nitrite Auto test strip Ql (U) Negative Negative [facility] Urobilinogen Auto test strip (U) [Mass/Vol]Ordered By: Christa Lopez on 10-09-2021 Urobilinogen (U) [Mass/Vol] Normal mg/dL Normal [facility] pH Auto test strip (U)Ordere d By: Christa Lopez on 10-09-2021 pH (U) 1.025 [pH] 1.001-1.030 [facility] pH (U) 5.5 [pH] 5.0-9.0 [facility] Albumin [Mass/volume] in Ser um or PlasmaOrdered By: Reinaldo Amor on 10-04-2021 Albumin [Mass/Vol] 3.6 g/dL 3.2-5.5 [facility] Basophils Auto (Bld) [#/Vol] Ordered By: Reinaldo Amor on 10-04-2021 Basophils (Bld) [#/Vol] 0.1 10*3/uL 0.0-0.2 [facility] Basophils/100 WBC Auto (Bld) Ordered By: Reinaldo Amor on 10-04-2021 Basophils/100 WBC (Bld) 0.8 % . [facility] Bilirubin Auto test strip Ql (U)Ordered By: Reinaldo Amor on 10-04-2021 Bilirubin Ql (U) Negative Negative [facility] Blood hemoglobin measurement (mass/volume)Ordered By: Reinaldo Amor on 10-04-2021 Hemoglobin (Bld) [Mass/Vol] 13.9 g/dL 11.8-15.4 [facility] Blood leukocytes automated c ount (number/volume)Ordered By: Reinaldo Amor on 10-04-2021 WBC (Bld) [#/Vol] 10.4 10*3/uL 4.5-11.0 [facility] Creatinine and Glomerular fi ltration rate.predicted panel (S/P/Bld)Ordered By: Reinaldo Amor on 10-04-2021 Creatinine [Mass/Vol] 0.73 mg/dL 0.44-1.03 [facility] Direct bilirubin measurement Ordered By: Reinaldo Amor on 10-04-2021 Bilirubin.direct [Mass/Vol] mg/dL 0.0-0.4 [facility] Eosinophils Auto (Bld) [#/Vo l]Ordered By: Reinaldo Amor on 10-04-2021 Eosinophils (Bld) [#/Vol] 0.1 10*3/uL 0.0-0.45 [facility] Eosinophils/100 WBC Auto (Bl d)Ordered By: Reinaldo Amor on 10-04-2021 Eosinophils/100 WBC (Bld) 0.5 % . [facility] Erythrocyte distribution wid th Auto (RBC) [Ratio]Ordered By: Reinaldo Amor on 10-04-2021 Erythrocyte distribution width (RBC) [Ratio] 13.7 % 11.9-15.3 [facility] Estimated glomerular filtrat ion rate (GFR) non- AmericanOrdered By: Reinaldo Amor on 10-04-2021 GFR/1.73 sq M.predicted among non-blacks MDRD (S/P/Bld) [Vol rate/Area] > 60 mL/Min [facility] Globulin Calc (S) [Mass/Vol] Ordered By: Reinaldo Amor on 10-04-2021 Globulin (S) [Mass/Vol] 2.6 g/dL [facility] Hematocrit Auto (Bld) [Volum e fraction]Ordered By: Reinaldo Amor on 10-04-2021 Hematocrit (Bld) [Volume fraction] 41.1 % 34.0-46.4 [facility] Ketones Auto test strip (U) [Mass/Vol]Ordered By: Reinaldo Amor on 10-04-2021 Ketones (U) [Mass/Vol] Negative Negative [facility] Laboratory - Chemistry and C hemistry - challengeOrdered By: Reinaldo Amor on 10-04-2021 Lipase [Catalytic activity/Vol] 107.0 U/L 22-51 [facility] Laboratory - Hematology and Cell countsOrdered By: Reinaldo Amor on 10-04-2021 Nucleated RBC/100 WBC (Bld) [Ratio] 0.1 % 0-0.5 [facility] Lymphocytes Auto (Bld) [#/Vo l]Ordered By: Reinaldo Amor on 10-04-2021 Lymphocytes (Bld) [#/Vol] 2.5 10*3/uL 1.00-4.8 [facility] Lymphocytes/100 WBC Auto (Bl d)Ordered By: Reinaldo Amor on 10-04-2021 Lymphocytes/100 WBC (Bld) 24.1 % . [facility] MCH Auto (RBC) [Entitic mass ]Ordered By: Reinaldo Amor on 10-04-2021 MCH (RBC) [Entitic mass] 32.6 pg 24.7-34.3 [facility] MCHC Auto (RBC) [Mass/Vol]Or dered By: Reinaldo Amor on 10-04-2021 MCHC (RBC) [Mass/Vol] 33.8 g/dL 32.0-35.0 [facility] MCV Auto (RBC) [Entitic vol] Ordered By: Reinaldo Amor on 10-04-2021 MCV (RBC) [Entitic vol] 96.5 fL 80-100 [facility] Monocytes Auto (Bld) [#/Vol] Ordered By: Reinaldo Amor on 10-04-2021 Monocytes (Bld) [#/Vol] 0.9 10*3/uL 0.0-0.8 [facility] Monocytes/100 WBC Auto (Bld) Ordered By: Reinaldo Amor on 10-04-2021 Monocytes/100 WBC (Bld) 8.4 % . [facility] Neutrophils Auto (Bld) [#/Vo l]Ordered By: Reinaldo Amor on 10-04-2021 Neutrophils (Bld) [#/Vol] 6.9 10*3/uL 1.8-7.7 [facility] Neutrophils/100 WBC Auto (Bl d)Ordered By: Reinaldo Amor on 10-04-2021 Neutrophils/100 WBC (Bld) 66.2 % . [facility] No Panel InformationOrdered By: Reinaldo Amor on 10-04-2021 Estimated GFR () > 60 mL/Min [facility] Comment on above: GFR estimated refere nce range: According to KDOQI guidelines, <60 ml/min/1.73m2 is sufficient to diagnose a patient with chronic kidney disease. Pharmacy Creatinine Clearance (Chem 71.30 [facility] Platelet mean volume Auto (B ld) [Entitic vol]Ordered By: Reinaldo Amor on 10-04-2021 Platelet mean volume (Bld) [Entitic vol] 8.0 fL 6.3-10.7 [facility] Platelets Auto (Bld) [#/Vol] Ordered By: Reinaldo Amor on 10-04-2021 Platelets (Bld) [#/Vol] 268 10*3/uL 150-450 [facility] Protein Auto test strip (U) [Mass/Vol]Ordered By: Reinaldo Amor on 10-04-2021 Protein (U) [Mass/Vol] Negative Negative [facility] Protein [Mass/volume] in Ser um or PlasmaOrdered By: Reinaldo Amor on 10-04-2021 Protein [Mass/Vol] 6.2 g/dL 6.1-7.9 [facility] RBC Auto (Bld) [#/Vol]Ordere d By: Reinaldo mAor on 10-04-2021 RBC (Bld) [#/Vol] 4.26 10*6/uL 3.60-5.00 [facility] Serum or plasma alanine hughes otransferase measurement without P-5'-P (enzymatic activiOrdered By: Reinaldo Amor on 10-04-2021 ALT No additional P-5'-P [Catalytic activity/Vol] 15 U/L 10-60 [facility] Serum or plasma albumin/glob ulin mass ratioOrdered By: Reinaldo Amor on 10-04-2021 Albumin/Globulin [Mass ratio] 1.4 {ratio} [facility] Serum or plasma alkaline jaqueline sphatase measurement (enzymatic activity/volume)Ordered By: Reinaldo Amor on 10-04-2021 ALP [Catalytic activity/Vol] 103 U/L 32-92 [facility] Serum or plasma amylase priscilla urement (enzymatic activity/volume)Ordered By: Reinaldo Amor on 10-04-2021 Amylase [Catalytic activity/Vol] 134 U/L 28-100 [facility] Serum or plasma aspartate am inotransferase measurement (enzymatic activity/volume)Ordered By: Reinaldo Amor on 10-04-2021 AST [Catalytic activity/Vol] 20 U/L 10-42 [facility] Serum or plasma calcium priscilla urement (mass/volume)Ordered By: Reinaldo Amor on 10-04-2021 Calcium [Mass/Vol] 9.6 mg/dL 8.2-10.2 [facility] Serum or plasma chloride daron surement (moles/volume)Ordered By: Reinaldo Amor on 10-04-2021 Chloride [Moles/Vol] 103 mmol/L 95-114 [facility] Serum or plasma ethanol priscilla urement (mass/volume)Ordered By: Reinaldo Amor on 10-04-2021 Ethanol [Mass/Vol] mg/dL [facility] Ethanol [Mass/Vol] TNP [facility] Comment on above: Test not performed Serum or plasma glucose priscilla urement (mass/volume)Ordered By: Reinaldo Amor on 10-04-2021 Glucose [Mass/Vol] 120 mg/dL 70-100 [facility] Comment on above: ADA recommended refe rence range Random Glucose Reference Range is dependent on time and content of last meal. Glucose of more than 200 mg/dL in a nonstressed, ambulatory subject supports the diagnosis of Diabetes Mellitus. Serum or plasma non-glucuron idated bilirubin measurement (mass/volume)Ordered By: Reinaldo Amor on 10-04-2021 Bilirubin.indirect [Mass/Vol] [facility] Comment on above: Test not performed Serum or plasma potassium me asurement (moles/volume)Ordered By: Reinaldo Amor on 10-04-2021 Potassium [Moles/Vol] 3.7 mmol/L 3.5-5.1 [facility] Serum or plasma sodium measu rement (moles/volume)Ordered By: Reinaldo Amor on 10-04-2021 Sodium [Moles/Vol] 137 mmol/L 136-146 [facility] Serum or plasma total biliru bin measurement (mass/volume)Ordered By: Reianldo Amor on 10-04-2021 Bilirubin [Mass/Vol] 0.5 mg/dL 0.3-1.2 [facility] Serum or plasma total carbon dioxide measurement (moles/volume)Ordered By: Reinaldo mAor on 10-04-2021 CO2 [Moles/Vol] 24.9 mmol/L 22.0-30.0 [facility] Serum or plasma urea nitroge n measurement (mass/volume)Ordered By: Reinaldo Amor on 10-04-2021 Urea nitrogen [Mass/Vol] 7 mg/dL 11-29 [facility] Urine appearanceOrdered By: Reinaldo Amor on 10-04-2021 Appearance (U) Clear Clear [facility] Urine colorOrdered By: Ml Amor on 10-04-2021 Color (U) Yellow Yellow [facility] Urine glucose measurement by automated test strip (mass/volume)Ordered By: Reinaldo Amor on 10-04-2021 Glucose Auto test strip (U) [Mass/Vol] Normal mg/dL Normal [facility] Urine hemoglobin detection b y automated test stripOrdered By: Reinaldo Amor on 10-04-2021 Hemoglobin Auto test strip Ql (U) Negative Negative [facility] Urine leukocyte esterase det ection by automated test stripOrdered By: Reinaldo Amor on 10-04-2021 Leukocyte esterase Auto test strip Ql (U) Negative Negative [facility] Urine nitrite detection by a utomated test stripOrdered By: Reinaldo Amor on 10-04-2021 Nitrite Auto test strip Ql (U) Negative Negative [facility] Urobilinogen Auto test strip (U) [Mass/Vol]Ordered By: Reinaldo Amor on 10-04-2021 Urobilinogen (U) [Mass/Vol] Normal mg/dL Normal [facility] pH Auto test strip (U)Ordere d By: Reinaldo Amor on 10-04-2021 pH (U) 1.030 [pH] 1.001-1.030 [facility] pH (U) 5.5 [pH] 5.0-9.0 [facility] Basophils Auto (Bld) [#/Vol] Ordered By: Reinaldo Amor on 09-25-2021 Basophils (Bld) [#/Vol] 0.1 10*3/uL 0.0-0.2 [facility] Basophils/100 WBC Auto (Bld) Ordered By: Reinaldo Amor on 09-25-2021 Basophils/100 WBC (Bld) 1.2 % . [facility] Blood hemoglobin measurement (mass/volume)Ordered By: Reinaldo Amor on 09-25-2021 Hemoglobin (Bld) [Mass/Vol] 14.2 g/dL 11.8-15.4 [facility] Blood leukocytes automated c ount (number/volume)Ordered By: Reinaldo Amor on 09-25-2021 WBC (Bld) [#/Vol] 9.3 10*3/uL 4.5-11.0 [facility] Body fluid albumin measureme nt (mass/volume)Ordered By: PROVIDER JONATHAN on 09-25-2021 Albumin (Body fld) [Mass/Vol] 4.3 g/dL 3.2-5.5 [facility] Creatinine and Glomerular fi ltration rate.predicted panel (S/P/Bld)Ordered By: PROVIDER JONATHAN on 09-25-2021 Creatinine [Mass/Vol] 0.82 mg/dL 0.44-1.03 [facility] Eosinophils Auto (Bld) [#/Vo l]Ordered By: Reinaldo Amor on 09-25-2021 Eosinophils (Bld) [#/Vol] 0.2 10*3/uL 0.0-0.45 [facility] Eosinophils/100 WBC Auto (Bl d)Ordered By: Reinaldo Amor on 09-25-2021 Eosinophils/100 WBC (Bld) 1.9 % . [facility] Erythrocyte distribution wid th Auto (RBC) [Ratio]Ordered By: Reinaldo Amor on 09-25-2021 Erythrocyte distribution width (RBC) [Ratio] 13.7 % 11.9-15.3 [facility] Estimated glomerular filtrat ion rate (GFR) non- AmericanOrdered By: PROVIDER TEMP on 09-25-2021 GFR/1.73 sq M.predicted among non-blacks MDRD (S/P/Bld) [Vol rate/Area] > 60 mL/Min [facility] Globulin Calc (S) [Mass/Vol] Ordered By: JOSE CASTILLO on 09-25-2021 Globulin (S) [Mass/Vol] 3.3 g/dL [facility] Hematocrit Auto (Bld) [Volum e fraction]Ordered By: Reinaldo Amor on 09-25-2021 Hematocrit (Bld) [Volume fraction] 42.1 % 34.0-46.4 [facility] Laboratory - Chemistry and C hemistry - challengeOrdered By: Reinaldo Amor on 09-25-2021 Lipase [Catalytic activity/Vol] 64.0 U/L 22-51 [facility] Laboratory - Hematology and Cell countsOrdered By: Reinaldo Amor on 09-25-2021 Nucleated RBC/100 WBC (Bld) [Ratio] 0.1 % 0-0.5 [facility] Lymphocytes Auto (Bld) [#/Vo l]Ordered By: Reinaldo Amor on 09-25-2021 Lymphocytes (Bld) [#/Vol] 2.6 10*3/uL 1.00-4.8 [facility] Lymphocytes/100 WBC Auto (Bl d)Ordered By: Reinaldo Amor on 09-25-2021 Lymphocytes/100 WBC (Bld) 28.1 % . [facility] MCH Auto (RBC) [Entitic mass ]Ordered By: Reinaldo Amor on 09-25-2021 MCH (RBC) [Entitic mass] 32.5 pg 24.7-34.3 [facility] MCHC Auto (RBC) [Mass/Vol]Or dered By: Reinaldo Amor on 09-25-2021 MCHC (RBC) [Mass/Vol] 33.7 g/dL 32.0-35.0 [facility] MCV Auto (RBC) [Entitic vol] Ordered By: Reinaldo Amor on 09-25-2021 MCV (RBC) [Entitic vol] 96.7 fL 80-100 [facility] Monocytes Auto (Bld) [#/Vol] Ordered By: Reinaldo Amor on 09-25-2021 Monocytes (Bld) [#/Vol] 0.8 10*3/uL 0.0-0.8 [facility] Monocytes/100 WBC Auto (Bld) Ordered By: Reinaldo Amor on 09-25-2021 Monocytes/100 WBC (Bld) 8.2 % . [facility] Neutrophils Auto (Bld) [#/Vo l]Ordered By: Reinaldo Amor on 09-25-2021 Neutrophils (Bld) [#/Vol] 5.6 10*3/uL 1.8-7.7 [facility] Neutrophils/100 WBC Auto (Bl d)Ordered By: Reinaldo Amor on 09-25-2021 Neutrophils/100 WBC (Bld) 60.6 % . [facility] No Panel InformationOrdered By: JOSE CASTILLO on 09-25-2021 Estimated GFR () > 60 mL/Min [facility] Comment on above: GFR estimated refere nce range: According to KDOQI guidelines, <60 ml/min/1.73m2 is sufficient to diagnose a patient with chronic kidney disease. Pharmacy Creatinine Clearance (Chem 63.47 [facility] Platelet mean volume Auto (B ld) [Entitic vol]Ordered By: Reinaldo Amor on 09-25-2021 Platelet mean volume (Bld) [Entitic vol] 8.6 fL 6.3-10.7 [facility] Platelets Auto (Bld) [#/Vol] Ordered By: Reinaldo Amor on 09-25-2021 Platelets (Bld) [#/Vol] 221 10*3/uL 150-450 [facility] Protein [Mass/volume] in Ser um or PlasmaOrdered By: PROVIDER JONATHAN on 09-25-2021 Protein [Mass/Vol] 7.6 g/dL 6.1-7.9 [facility] RBC Auto (Bld) [#/Vol]Ordere d By: Reinaldo Amor on 09-25-2021 RBC (Bld) [#/Vol] 4.35 10*6/uL 3.60-5.00 [facility] Serum or plasma alanine hughes otransferase measurement without P-5'-P (enzymatic activiOrdered By: PROVIDER JONATHAN on 09-25-2021 ALT No additional P-5'-P [Catalytic activity/Vol] 14 U/L 10-60 [facility] Serum or plasma albumin/glob ulin mass ratioOrdered By: PROVIDER TEMP on 09-25-2021 Albumin/Globulin [Mass ratio] 1.3 {ratio} [facility] Serum or plasma alkaline jaqueline sphatase measurement (enzymatic activity/volume)Ordered By: PROVIDER TEMP on 09-25-2021 ALP [Catalytic activity/Vol] 127 U/L 32-92 [facility] Serum or plasma amylase priscilla urement (enzymatic activity/volume)Ordered By: Reinaldo Amor on 09-25-2021 Amylase [Catalytic activity/Vol] 171 U/L 28-100 [facility] Serum or plasma aspartate am inotransferase measurement (enzymatic activity/volume)Ordered By: PROVIDER TEMP on 09-25-2021 AST [Catalytic activity/Vol] 21 U/L 10-42 [facility] Serum or plasma calcium priscilla urement (mass/volume)Ordered By: PROVIDER TEMP on 09-25-2021 Calcium [Mass/Vol] 10.1 mg/dL 8.2-10.2 [facility] Serum or plasma chloride daron surement (moles/volume)Ordered By: PROVIDER TEMP on 09-25-2021 Chloride [Moles/Vol] 103 mmol/L 95-114 [facility] Serum or plasma glucose priscilla urement (mass/volume)Ordered By: PROVIDER TEMP on 09-25-2021 Glucose [Mass/Vol] 93 mg/dL 70-100 [facility] Comment on above: ADA recommended refe rence range Random Glucose Reference Range is dependent on time and content of last meal. Glucose of more than 200 mg/dL in a nonstressed, ambulatory subject supports the diagnosis of Diabetes Mellitus. Serum or plasma potassium me asurement (moles/volume)Ordered By: PROVIDER TEMP on 09-25-2021 Potassium [Moles/Vol] 3.9 mmol/L 3.5-5.1 [facility] Serum or plasma sodium measu rement (moles/volume)Ordered By: PROVIDER TEMP on 09-25-2021 Sodium [Moles/Vol] 137 mmol/L 136-146 [facility] Serum or plasma total biliru bin measurement (mass/volume)Ordered By: PROVIDER TEMP on 09-25-2021 Bilirubin [Mass/Vol] 0.3 mg/dL 0.3-1.2 [facility] Serum or plasma total carbon dioxide measurement (moles/volume)Ordered By: PROVIDER TEMP on 09-25-2021 CO2 [Moles/Vol] 26.3 mmol/L 22.0-30.0 [facility] Serum or plasma urea nitroge n measurement (mass/volume)Ordered By: PROVIDER TEMP on 09-25-2021 Urea nitrogen [Mass/Vol] 8 mg/dL 9- [facility] AMYLASEon 09-17-2021 Amylase [Catalytic activity/Vol] 142 U/L Critically high 25-115 [facility] Comment on above: Performed By: #### A MY, CMP, LIPA ####[facility] [id number] [id number]. Keturah Fisher CBC AUTO DIFFon 09-17-2021 BASO # 0.1 103/ul Normal 0.0-0.1 [facility] Comment on above: Performed By: #### C BC ####[facility] [facility] [address] [place], [place] [address]Dr. Keturah Fisher Basophils/100 WBC (Bld) 0.7 % Normal 0.2-2.0 [facility] Comment on above: Performed By: #### C BC ####[facility] [address] [place], [place] [address]Dr. Keturah Fisher EO # 0.1 103/ul Normal 0.0-0.7 [facility] Comment on above: Performed By: #### C BC ####[facility] [address] [place], [place] [address]Dr. Keturah Fishre Eosinophils/100 WBC (Bld) 1.3 % Normal 0.9-7.0 [facility] Comment on above: Performed By: #### C BC ####[facility] N[address] [place], [place] [address]Dr. Keturah Fisher Erythrocyte distribution width (RBC) [Ratio] 13.2 % Normal 11.0-15.0 [facility] Comment on above: Performed By: #### C BC ####[facility] [address] [place] [address]Dr. Keturah Fisher Hematocrit (Bld) [Volume fraction] 43.7 % Normal 36.0-48.0 [facility] Comment on above: Performed By: #### C BC ####[facility] [address] [place] [address]Dr. Keturah Fisher Hemoglobin (Bld) [Mass/Vol] 14.7 g/dL Normal 12.0-16.0 [facility] Comment on above: Performed By: #### C BC ####[facility] [address] [place], [place] [address]Dr. Keturah Fisher IG # 0.01 10e3/ul Normal 0.00-0.03 [facility] Comment on above: Performed By: #### C BC ####[facility] L[address]exsuf[address] [place], [place] [address]Dr. Keturah Fisher IG % 0.1 % Normal 0.0-0.5 [facility] Comment on above: Performed By: #### C BC ####[facility] [address]dinsug[address] [place], [place] [address]Dr. Keturah Fisher LYMPH # 2.7 103/ul Normal 1.2-3.8 [facility] Comment on above: Performed By: #### C BC ####[facility] Bl[address] [place], [place] [address]Dr. Keturah Fisher Lymphocytes/100 WBC (Bld) 30.1 % Normal 20.5-60.0 [facility] Comment on above: Performed By: #### C BC ####[facility] [address] [place], [place] [address]Dr. Keturah Fisher MANUAL DIFF REQ NO Normal [facility] Comment on above: Performed By: #### C BC ####[facility] [address] [place], [place] [address]Dr. Keturah Fisher MCH (RBC) [Entitic mass] 32.4 pg Normal 26.7-34.0 [facility] Comment on above: Performed By: #### C BC ####[facility] [address] [place] [id number]. Keturah Fisher MCHC (RBC) [Mass/Vol] 33.6 g/dL Normal 29.9-35.2 [facility] Comment on above: Performed By: #### C BC ####[facility] [address] [place] [id number]. Kteurah Fisher MCV (RBC) [Entitic vol] 96.3 fL Normal 81.0-99.0 [facility] Comment on above: Performed By: #### C BC ####[facility] [address] [place] [id number]. Keturah Phillip MONO # 0.8 103/ul Normal 0.3-0.8 [facility] Comment on above: Performed By: #### C BC ####[facility] [address] [place] [id number]. Keturah Fisher Monocytes/100 WBC (Bld) 8.7 % Normal 1.7-12.0 [facility] Comment on above: Performed By: #### C BC ####[facility] [address] [place] [id number]. Keturah Fisher NEUT # 5.4 103/ul Normal 1.4-6.5 [facility] Comment on above: Performed By: #### C BC ####[facility] [address] [place] [id number]. Elisaeli Fisher Neutrophils/100 WBC (Bld) 59.1 % Normal 43.0-75.0 [facility] Comment on above: Performed By: #### C BC ####[facility] [address] [place] [id number]. Keturah Fisher Platelet mean volume (Bld) [Entitic vol] 9.6 fL Normal 9.5-13.5 [facility] Comment on above: Performed By: #### C BC ####[facility] [address] [place] [id number]. Keturah Phillip PLT 272 103/ul Normal 150-450 [facility] Comment on above: Performed By: #### C BC ####[facility] [address] [place], [place] [address]NmGopal Fisher RBC 4.54 106/ul Normal 4.20-5.40 [facility] Comment on above: Performed By: #### C BC ####[facility] [address] [place], [place] [address]PhGopal Fisher WBC 9.1 103/ul Normal 4.0-11.0 [facility] Comment on above: Performed By: #### C BC ####[facility] [address] [place] [id number]. Keturah Fisher ETHANOL (BLD ALC)on 09-18-19 22 ALC NOTE NOTE: 80 mg/dl is th e legal limit for a blood alcohol level Normal [facility] Comment on above: Performed By: #### L IPA, CMP, CRP, NAT #### [facility] [address] [place] [address] Dr. Keturah Fisher Ethanol [Mass/Vol] mg/dL Normal [facility] Comment on above: Performed By: #### L IPA, CMP, CRP, NAT #### [facility] [address] [place] [address] Dr. Keturah Fisher LIPASEon 09-17-2021 Lipase [Catalytic activity/Vol] 524.0 U/L Critically high 73.0-393.0 [facility] Comment on above: Performed By: #### C BC #### [facility] [address] [address] [address] Keturah Fisher PROF 14(COMP METB)on 022 Albumin [Mass/Vol] 3.9 g/dL Normal 3.4-5.0 [facility] Comment on above: Performed By: #### C BC #### [facility] [address] [place] [address] Dr. Keturah Fisher Albumin/Globulin [Mass ratio] 1.1 {ratio} Normal [facility] Comment on above: Performed By: #### C BC #### [facility] [address] [address] [address] Keturah Fisher ALP [Catalytic activity/Vol] 136 U/L Critically high 46-116 [facility] Comment on above: Performed By: #### C BC #### [facility] [address] [address] [address] Keturah Fisher ALT [Catalytic activity/Vol] 21 U/L Normal 14-59 [facility] Comment on above: Performed By: #### C BC #### [facility] [address] [address] [address] Keturah Fisher Anion gap [Moles/Vol] 12.7 mmol/L Normal [facility] Comment on above: Performed By: #### C BC #### [facility] [address] [address] [address] Keturah Fisher AST [Catalytic activity/Vol] 16 U/L Normal 15-37 [facility] Comment on above: Performed By: #### C BC #### [facility] [address] [address] [address] Keturah Fisher Bilirubin [Mass/Vol] 0.2 mg/dL Normal 0.2-1.0 [facility] Comment on above: Performed By: #### C BC #### [facility] [address] [address] [address] Keturah Fisher Calcium [Mass/Vol] 9.9 mg/dL Normal 8.5-10.1 [facility] Comment on above: Performed By: #### C BC #### [facility] [address] [address] [address] Keturah Fisher Chloride [Moles/Vol] 106 mmol/L Normal 98-107 [facility] Comment on above: Performed By: #### C BC #### [facility] [address] [address] [address] Keturah Fisher CO2 [Moles/Vol] 25.9 mmol/L Normal 21.0-32.0 [facility] Comment on above: Performed By: #### C BC #### [facility] [address] [address] [address] Keturah Fisher Creatinine [Mass/Vol] 0.96 mg/dL Normal 0.55-1.02 [facility] Comment on above: Performed By: #### C BC #### [facility] [address] [address] [address] Keturah Fisher EGFR-AF KENYAN >60 Normal >=60 [facility] Comment on above: Performed By: #### C BC #### [facility] [address] [address] [address] Keturah Fisher EGFR-NON AF KENYAN >60 Normal >=60 [facility] Comment on above: Performed By: #### C BC #### [facility] [address] [address] [address] Keturah Fisher Globulin (S) [Mass/Vol] 3.5 g/dL Normal [facility] Comment on above: Performed By: #### C BC #### [facility] [address] [address] [address] Keturah Fisher Glucose [Mass/Vol] 113 mg/dL Critically high 74-106 [facility] Comment on above: Performed By: #### C BC #### [facility] [address] [address] [address] Keturah Fisher Potassium [Moles/Vol] 3.6 mmol/L Normal 3.5-5.1 [facility] Comment on above: Performed By: #### C BC #### [facility] [address] [place] [address] Dr. Keturah Fisher Protein [Mass/Vol] 7.4 g/dL Normal 6.4-8.2 [facility] Comment on above: Performed By: #### C BC #### [facility] [address] [address] [address] Keturah Fisher Sodium [Moles/Vol] 141 mmol/L Normal 136-145 [facility] Comment on above: Performed By: #### C BC #### [facility] [address] [address] [address] Keturah Fisher Urea nitrogen [Mass/Vol] 8.0 mg/dL Normal 7.0-18.0 [facility] Comment on above: Performed By: #### C BC #### [facility] [address] [address] [address] Keturah Fisher Urea nitrogen/Creatinine [Mass ratio] 8.3 mg/mg Normal [facility] Comment on above: Performed By: #### C BC #### [facility] [address] [address] [address] Keturah Fisher AMYLASEon 08-26-2021 Amylase [Catalytic activity/Vol] 94 U/L Normal 25-115 [facility] Comment on above: Performed By: #### A MY, CMP, LIPA ####[facility] [address] [place] [address]Dr. Keturah Fisher CBC AUTO DIFFon 08-26-2021 BASO # 0.1 103/ul Normal 0.0-0.1 [facility] Comment on above: Performed By: #### L IPA, CMP, CRP, NAT #### [facility] [address] [address] [address] Keturah Fisher Basophils/100 WBC (Bld) 0.7 % Normal 0.2-2.0 [facility] Comment on above: Performed By: #### L IPA, CMP, CRP, NAT #### [facility] [address] [address] [address] Keturah Fisher EO # 0.2 103/ul Normal 0.0-0.7 [facility] Comment on above: Performed By: #### L IPA, CMP, CRP, NAT #### [facility] [address] [address] [address] Keturah Fisher Eosinophils/100 WBC (Bld) 2.5 % Normal 0.9-7.0 [facility] Comment on above: Performed By: #### L IPA, CMP, CRP, NAT #### [facility] [address] [address] [address] Keturah Fisher Erythrocyte distribution width (RBC) [Ratio] 13.1 % Normal 11.0-15.0 [facility] Comment on above: Performed By: #### L IPA, CMP, CRP, NAT #### [facility] [address] [address] [address] Keturah Fisher Hematocrit (Bld) [Volume fraction] 42.4 % Normal 36.0-48.0 [facility] Comment on above: Performed By: #### L IPA, CMP, CRP, NAT #### [facility] [address] [place] [address] Dr. Keturah Fisher Hemoglobin (Bld) [Mass/Vol] 14.1 g/dL Normal 12.0-16.0 [facility] Comment on above: Performed By: #### L IPA, CMP, CRP, NAT #### [facility] [address] [place] [address] Dr. Keturah Fisher IG # 0.03 10e3/ul Normal 0.00-0.03 [facility] Comment on above: Performed By: #### L IPA, CMP, CRP, NAT #### [facility] [address] [place] [address] Dr. Keturah Fisher IG % 0.3 % Normal 0.0-0.5 [facility] Comment on above: Performed By: #### L IPA, CMP, CRP, NAT #### [facility] [address] [place] [address] Dr. Keturah Fisher LYMPH # 2.6 103/ul Normal 1.2-3.8 [facility] Comment on above: Performed By: #### L IPA, CMP, CRP, NAT #### [facility] [address] [place] [address] Dr. Keturah Fisher Lymphocytes/100 WBC (Bld) 27.7 % Normal 20.5-60.0 [facility] Comment on above: Performed By: #### L IPA, CMP, CRP, NAT #### [facility] [address] [place] [address] Dr. Keturah Fisher MANUAL DIFF REQ NO Normal [facility] Comment on above: Performed By: #### L IPA, CMP, CRP, NAT #### [facility] [address] [place] [address] Dr. Keturah Fisher MCH (RBC) [Entitic mass] 32.6 pg Normal 26.7-34.0 [facility] Comment on above: Performed By: #### L IPA, CMP, CRP, NAT #### [facility] [address] [place] [address] Dr. Keturah Fisher MCHC (RBC) [Mass/Vol] 33.3 g/dL Normal 29.9-35.2 [facility] Comment on above: Performed By: #### L IPA, CMP, CRP, NAT #### [facility] [address] [place] [address] Dr. Keturah Fisher MCV (RBC) [Entitic vol] 97.9 fL Normal 81.0-99.0 [facility] Comment on above: Performed By: #### L IPA, CMP, CRP, NAT #### [facility] [address] [place] [address] Dr. Keturah Fisher MONO # 1.2 103/ul Critically high 0.3-0.[address] [facility] Comment on above: Performed By: #### L IPA, CMP, CRP, NAT #### [facility] [address] [place] [address] Dr. Keturah Fisher Monocytes/100 WBC (Bld) 12.9 % Critically high 1.7-12.0 [facility] Comment on above: Performed By: #### L IPA, CMP, CRP, NAT #### [facility] [address] [place] [address] Dr. Keturah Fisher NEUT # 5.3 103/ul Normal 1.4-6.5 [facility] Comment on above: Performed By: #### L IPA, CMP, CRP, NAT #### [facility] [address] [place] [address] Dr. Keturah Fisher Neutrophils/100 WBC (Bld) 55.9 % Normal 43.0-75.0 [facility] Comment on above: Performed By: #### L IPA, CMP, CRP, NAT #### [facility] [address] [place] [address] Dr. Keturah Fisher Platelet mean volume (Bld) [Entitic vol] 9.8 fL Normal 9.5-13.5 [facility] Comment on above: Performed By: #### L IPA, CMP, CRP, NAT #### [facility] [address] [place] [address] Dr. Keturah Fisher PLT 229 103/ul Normal 150-450 [facility] Comment on above: Performed By: #### L IPA, CMP, CRP, NAT #### [facility] [address] [place] [address] [address] Keturah Fisher RBC 4.33 106/ul Normal 4.20-5.40 [facility] Comment on above: Performed By: #### L IPA, CMP, CRP, NAT #### [facility] [address] [place] [address] [address] Keturah Fisher WBC 9.5 103/ul Normal 4.0-11.0 [facility] Comment on above: Performed By: #### L IPA, CMP, CRP, NAT #### [facility] [address] [address] [address] Keturah Fisher LIPASEon 08-26-2021 Lipase [Catalytic activity/Vol] 146.0 U/L Normal 73.0-393.0 [facility] Comment on above: Performed By: #### A MY, CMP, LIPA ####[facility] [address] [place] [address]DrGopal Fisher PROF 14(COMP METB)on 022 Albumin [Mass/Vol] 3.5 g/dL Normal 3.4-5.0 [facility] Comment on above: Performed By: #### A MY, CMP, LIPA ####[facility] [address] [place] [address]Dr. Keturah Fisher Albumin/Globulin [Mass ratio] 1.1 {ratio} Normal [facility] Comment on above: Performed By: #### A MY, CMP, LIPA ####[facility] [address] [place] [address]DrGopal Fisher ALP [Catalytic activity/Vol] 139 U/L Critically high 46-116 [facility] Comment on above: Performed By: #### A MY, CMP, LIPA ####[facility] [address] [place] [address]Dr. Keturah Fisher ALT [Catalytic activity/Vol] 21 U/L Normal 14-59 [facility] Comment on above: Performed By: #### A MY, CMP, LIPA ####[facility] [address] [place] [address]Dr. Keturah Fishre Anion gap [Moles/Vol] 11.4 mmol/L Normal [facility] Comment on above: Performed By: #### A MY, CMP, LIPA ####[facility] [address] [place] [address]Dr. Keturah Fisher AST [Catalytic activity/Vol] 21 U/L Normal 15-37 [facility] Comment on above: Performed By: #### A MY, CMP, LIPA ####[facility] [address] [place] [address]Dr. Keturah Fisher Bilirubin [Mass/Vol] 0.2 mg/dL Normal 0.2-1.0 [facility] Comment on above: Performed By: #### A MY, CMP, LIPA ####[facility] [address] [place], [place] [address]Dr. Keturah Fisher Calcium [Mass/Vol] 9.2 mg/dL Normal 8.5-10.1 [facility] Comment on above: Performed By: #### A MY, CMP, LIPA ####[facility] [address] [place], [place] [address]Dr. Keturah Fisher Chloride [Moles/Vol] 107 mmol/L Normal 98-107 [facility] Comment on above: Performed By: #### A MY, CMP, LIPA ####[facility] [address] [place], [place] [address]Dr. Keturah Fisher CO2 [Moles/Vol] 27.9 mmol/L Normal 21.0-32.0 [facility] Comment on above: Performed By: #### A MY, CMP, LIPA ####[facility] [address] [place] [address]Dr. Keturah Fisher Creatinine [Mass/Vol] 0.84 mg/dL Normal 0.55-1.02 [facility] Comment on above: Performed By: #### A MY, CMP, LIPA ####[facility] [address] [place] [id number]. Keturah Fisher EGFR-AF KENYAN >60 Normal >=60 [facility] Comment on above: Performed By: #### A MY, CMP, LIPA ####[facility] [address] [place] [address]Dr. Keturah Fisher EGFR-NON AF KENYAN >60 Normal >=60 [facility] Comment on above: Performed By: #### A MY, CMP, LIPA ####[facility] [address] [place] [address]Dr. Keturah Fisher Globulin (S) [Mass/Vol] 3.3 g/dL Normal [facility] Comment on above: Performed By: #### A MY, CMP, LIPA ####[facility] [address] [place], [place] [address]Dr. Keturah Fisher Glucose [Mass/Vol] 106 mg/dL Normal 74-106 [facility] Comment on above: Performed By: #### A MY, CMP, LIPA ####[facility] [address] [place], [place] [address]Dr. Keturah Fisher Potassium [Moles/Vol] 4.3 mmol/L Normal 3.5-5.1 [facility] Comment on above: Performed By: #### A MY, CMP, LIPA ####[facility] [address] [place] [address]Dr. Keturah Fisher Protein [Mass/Vol] 6.8 g/dL Normal 6.4-8.2 [facility] Comment on above: Performed By: #### A MY, CMP, LIPA ####[facility] [address] [place] [address]Dr. Keturah Fisher Sodium [Moles/Vol] 142 mmol/L Normal 136-145 [facility] Comment on above: Performed By: #### A MY, CMP, LIPA ####[facility] [address] [place] [address]Dr. Keturah Fisher Urea nitrogen [Mass/Vol] 11.0 mg/dL Normal 7.0-18.0 [facility] Comment on above: Performed By: #### A MY, CMP, LIPA ####[facility] [address] [place], [place] [address]LgGopal Fisher Urea nitrogen/Creatinine [Mass ratio] 13.1 mg/mg Normal [facility] Comment on above: Performed By: #### A MY, CMP, LIPA ####[facility] [address] [place], [place] [address]Hn. Keturah Fisher XR ABD FLAT UP_PA Jorje [...] MILADIS BARRERA Date: 2021-08-26 04:59 Normal [facility] AMYLASEon 08-22-2021 Amylase [Catalytic activity/Vol] 155 U/L Critically high 25-115 [facility] Comment on above: Performed By: #### C MP, NAT, LIPA #### [facility] [address] [address] [address] Keturah Fisher CBC AUTO DIFFon 08-22-2021 BASO # 0.1 103/ul Normal 0.0-0.1 [facility] Comment on above: Performed By: #### L IPA, CMP, CRP, NAT #### [facility] [address] [id number] [address] Keturah Fisher Basophils/100 WBC (Bld) 0.7 % Normal 0.2-2.0 [facility] Comment on above: Performed By: #### L IPA, CMP, CRP, NAT #### [facility] [address] [place] [address] Dr. Keturah Fisher EO # 0.1 103/ul Normal 0.0-0.7 [facility] Comment on above: Performed By: #### L IPA, CMP, CRP, NAT #### [facility] [address] [place] [address] Dr. Keturah Fisher Eosinophils/100 WBC (Bld) 0.7 % Critically low 0.9-7.0 [facility] Comment on above: Performed By: #### L IPA, CMP, CRP, NAT #### [facility] [address] [place] [address] Dr. Keturah Fisher Erythrocyte distribution width (RBC) [Ratio] 13.2 % Normal 11.0-15.0 [facility] Comment on above: Performed By: #### L IPA, CMP, CRP, NAT #### [facility] [address] [place] [address] Dr. Keturah Fisher Hematocrit (Bld) [Volume fraction] 41.1 % Normal 36.0-48.0 [facility] Comment on above: Performed By: #### L IPA, CMP, CRP, NAT #### [facility] [address] [place] [address] Dr. Keturah Fisher Hemoglobin (Bld) [Mass/Vol] 13.8 g/dL Normal 12.0-16.0 [facility] Comment on above: Performed By: #### L IPA, CMP, CRP, NAT #### [facility] [address] [place] [address] Dr. Keturah Fisher IG # 0.03 10e3/ul Normal 0.00-0.03 [facility] Comment on above: Performed By: #### L IPA, CMP, CRP, NAT #### [facility] [address] [place] [address] Dr. Keturah Fisher IG % 0.2 % Normal 0.0-0.5 [facility] Comment on above: Performed By: #### L IPA, CMP, CRP, NAT #### [facility] [address] [place] [address] Dr. Keturah Fisher LYMPH # 2.6 103/ul Normal 1.2-3.8 [facility] Comment on above: Performed By: #### L IPA, CMP, CRP, NAT #### [facility] [address] [place] [address] Dr. Keturah Fisher Lymphocytes/100 WBC (Bld) 21.4 % Normal 20.5-60.0 [facility] Comment on above: Performed By: #### L IPA, CMP, CRP, NAT #### [facility] [address] [place] [address] Dr. Keturah Fisher MANUAL DIFF REQ NO Normal [facility] Comment on above: Performed By: #### L IPA, CMP, CRP, NAT #### [facility] [address] [place] [address] Dr. Keturah Fisher MCH (RBC) [Entitic mass] 32.2 pg Normal 26.7-34.0 [facility] Comment on above: Performed By: #### L IPA, CMP, CRP, NAT #### [facility] [address] [place] [address] Dr. Keturah Fisher MCHC (RBC) [Mass/Vol] 33.6 g/dL Normal 29.9-35.2 [facility] Comment on above: Performed By: #### L IPA, CMP, CRP, NAT #### [facility] [address] [place] [address] Dr. Keturah Fisher MCV (RBC) [Entitic vol] 95.8 fL Normal 81.0-99.0 [facility] Comment on above: Performed By: #### L IPA, CMP, CRP, NAT #### [facility] [address] [place] [address] Dr. Keturah Fisher MONO # 0.9 103/ul Critically high 0.3-0.[address] [facility] Comment on above: Performed By: #### L IPA, CMP, CRP, NAT #### [facility] [address] [place] [address] Dr. Keturah Fisher Monocytes/100 WBC (Bld) 7.6 % Normal 1.7-12.0 [facility] Comment on above: Performed By: #### L IPA, CMP, CRP, NAT #### [facility] [address] [address] [address] Keturah Fisher NEUT # 8.5 103/ul Critically high 1.4-6.5 [facility] Comment on above: Performed By: #### L IPA, CMP, CRP, NAT #### [facility] [address] [address] [address] Keturah Fisher Neutrophils/100 WBC (Bld) 69.4 % Normal 43.0-75.0 [facility] Comment on above: Performed By: #### L IPA, CMP, CRP, NAT #### [facility] [address] [place] [address] Dr. Keturah Fisher Platelet mean volume (Bld) [Entitic vol] 9.5 fL Normal 9.5-13.5 [facility] Comment on above: Performed By: #### L IPA, CMP, CRP, NAT #### [facility] [address] [place] [address] Dr. Keturah Fisher PLT 261 103/ul Normal 150-450 [facility] Comment on above: Performed By: #### L IPA, CMP, CRP, NAT #### [facility] [address] [place] [address] Dr. Keturah Fisher RBC 4.29 106/ul Normal 4.20-5.40 [facility] Comment on above: Performed By: #### L IPA, CMP, CRP, NAT #### [facility] [address] [place] [address] Dr. Keturah Fisher WBC 12.2 103/ul Critically high 4.0-11.0 [facility] Comment on above: Performed By: #### L IPA, CMP, CRP, NAT #### [facility] [address] [place] [address] Dr. Keturah Fisher LIPASEon 08-22-2021 Lipase [Catalytic activity/Vol] 419.0 U/L Critically high 73.0-393.0 [facility] Comment on above: Performed By: #### C NAT MEDEL, LIPA #### [facility] [address] [address] [address] Keturah Fisher PROF 14(COMP METB)on 022 Albumin [Mass/Vol] 3.9 g/dL Normal 3.4-5.0 [facility] Comment on above: Performed By: #### C LIZY NAT, LIPA #### [facility] [address] [address] [address] Keturah Fisher Albumin/Globulin [Mass ratio] 1.2 {ratio} Normal [facility] Comment on above: Performed By: #### C NAT MEDEL, LIPA #### [facility] [address] [place] [address] Dr. Keturah Fisher ALP [Catalytic activity/Vol] 137 U/L Critically high 46-116 [facility] Comment on above: Performed By: #### C NAT MEDEL, LIPA #### [facility] [address] [address] [address] Keturah Fisher ALT [Catalytic activity/Vol] 22 U/L Normal 14-59 [facility] Comment on above: Performed By: #### C NAT MEDEL, LIPA #### [facility] [address] [place] [address] Dr. Keturah Fisher Anion gap [Moles/Vol] 12.9 mmol/L Normal [facility] Comment on above: Performed By: #### C NAT MEDEL, LIPA #### [facility] [address] [place] [address] Dr. Keturah Fisher AST [Catalytic activity/Vol] 20 U/L Normal 15-37 [facility] Comment on above: Performed By: #### C NAT MEDEL, LIPA #### [facility] [address] [place] [address] Dr. Keturah Fisher Bilirubin [Mass/Vol] 0.2 mg/dL Normal 0.2-1.0 [facility] Comment on above: Performed By: #### C LIZY NAT, LIPA #### [facility] [address] [place], [place] [id number] Dr. Keturah Fisher Calcium [Mass/Vol] 9.5 mg/dL Normal 8.5-10.1 [facility] Comment on above: Performed By: #### C NAT MEDEL, LIPA #### [facility] [address] [place] [address] Dr. Keturah Fisher Chloride [Moles/Vol] 104 mmol/L Normal 98-107 [facility] Comment on above: Performed By: #### C NAT MEDEL, LIPA #### [facility] [address] [place] [address] Dr. Keturah Fisher CO2 [Moles/Vol] 23.7 mmol/L Normal 21.0-32.0 [facility] Comment on above: Performed By: #### C NAT MEDEL, LIPA #### [facility] [address] [place] [address] Dr. Keturah Fisher Creatinine [Mass/Vol] 0.85 mg/dL Normal 0.55-1.02 [facility] Comment on above: Performed By: #### C NAT MEDEL, LIPA #### [facility] [address] [place] [address] Dr. Keturah Fisher EGFR-AF KENYAN >60 Normal >=60 [facility] Comment on above: Performed By: #### C NAT MEDEL, LIPA #### [facility] [address] [place] [address] Dr. Keturah Fisher EGFR-NON AF KENYAN >60 Normal >=60 [facility] Comment on above: Performed By: #### C NAT MEDEL, LIPA #### [facility] [address] [place] [address] Dr. Keturah Fisher Globulin (S) [Mass/Vol] 3.3 g/dL Normal [facility] Comment on above: Performed By: #### C NAT MEDEL, LIPA #### [facility] [address] [place] [address] Dr. Keturah Fisher Glucose [Mass/Vol] 130 mg/dL Critically high 74-106 [facility] Comment on above: Performed By: #### C MP, NAT, LIPA #### [facility] [address] [address] [address] Keturah Fisher Potassium [Moles/Vol] 3.6 mmol/L Normal 3.5-5.1 [facility] Comment on above: Performed By: #### C MP, NAT, LIPA #### [facility] [address] [address] [address] Keturah Fisher Protein [Mass/Vol] 7.2 g/dL Normal 6.4-8.2 [facility] Comment on above: Performed By: #### C MP, NAT, LIPA #### [facility] [address] [address] [address] Keturah Fisher Sodium [Moles/Vol] 137 mmol/L Normal 136-145 [facility] Comment on above: Performed By: #### C MP, NTA, LIPA #### [facility] [address] [address] [address] Keturah Fisher Urea nitrogen [Mass/Vol] 9.0 mg/dL Normal 7.0-18.0 [facility] Comment on above: Performed By: #### C LIZY, NAT, LIPA #### [facility] [address] [address] [address] Keturah Fisher Urea nitrogen/Creatinine [Mass ratio] 10.6 mg/mg Normal [facility] Comment on above: Performed By: #### C MP, NAT, LIPA #### [facility] [address] [address] [address] Keturah Fisher XR ABD FLAT UP_PA [...] TRI HANSON Date: 2021-08-22 14:54 Normal [facility] CBC AUTO DIFFon 08-13-2021 BASO # 0.1 103/ul Normal 0.0-0.1 [facility] Comment on above: Performed By: #### C BC ####[facility] [address] [place], [place] [address]Dr. Keturah Fisher Basophils/100 WBC (Bld) 0.6 % Normal 0.2-2.0 [facility] Comment on above: Performed By: #### C BC ####[facility] [address] [place], [place] [address]Dr. Keturah Fisher EO # 0.1 103/ul Normal 0.0-0.7 [facility] Comment on above: Performed By: #### C BC ####[facility] [address] [place], [place] [address]Dr. Keturah Fisher Eosinophils/100 WBC (Bld) 1.1 % Normal 0.9-7.0 [facility] Comment on above: Performed By: #### C BC ####[facility] [address] [place], [place] [address]Dr. Keturah Fisher Erythrocyte distribution width (RBC) [Ratio] 12.6 % Normal 11.0-15.0 [facility] Comment on above: Performed By: #### C BC ####[facility] [address] [place], [place] [address]Dr. Keturah Fisher Hematocrit (Bld) [Volume fraction] 42.3 % Normal 36.0-48.0 [facility] Comment on above: Performed By: #### C BC ####[facility] [address] [place], [place] [address]Dr. Keturah Fisher Hemoglobin (Bld) [Mass/Vol] 14.1 g/dL Normal 12.0-16.0 [facility] Comment on above: Performed By: #### C BC ####[facility] [address] [place], [place] [address]Dr. Keturah Fisher IG # 0.03 10e3/ul Normal 0.00-0.03 [facility] Comment on above: Performed By: #### C BC ####[facility] [address] [id number]. Keturah Fisher IG % 0.3 % Normal 0.0-0.5 [facility] Comment on above: Performed By: #### C BC ####[facility] [address] [id number]. Keturah Fisher LYMPH # 2.4 103/ul Normal 1.2-3.8 [facility] Comment on above: Performed By: #### C BC ####[facility] [address] [address]Dr. Keturah Fisher Lymphocytes/100 WBC (Bld) 22.3 % Normal 20.5-60.0 [facility] Comment on above: Performed By: #### C BC ####[facility] [address] [address]Dr. Keturah Fisher MANUAL DIFF REQ NO Normal [facility] Comment on above: Performed By: #### C BC ####[facility] [address] [id number]. Keturah Phillip MCH (RBC) [Entitic mass] 32.5 pg Normal 26.7-34.0 [facility] Comment on above: Performed By: #### C BC ####[facility] [address] [id number]. Elisaeli Phillip MCHC (RBC) [Mass/Vol] 33.3 g/dL Normal 29.9-35.2 [facility] Comment on above: Performed By: #### C BC ####[facility] [address] [address]Dr. Keturah Fisher MCV (RBC) [Entitic vol] 97.5 fL Normal 81.0-99.0 [facility] Comment on above: Performed By: #### C BC ####[facility] [address] [id number]. Keturah Fisher MONO # 1.0 103/ul Critically high 0.3-0.8 [facility] Comment on above: Performed By: #### C BC ####[facility] [address] [id number]. Keturah Fisher Monocytes/100 WBC (Bld) 8.7 % Normal 1.7-12.0 [facility] Comment on above: Performed By: #### C BC ####[facility] [address] [id number]. Keturah Fisher NEUT # 7.3 103/ul Critically high 1.4-6.[address] [facility] Comment on above: Performed By: #### C BC ####[facility] [address] [id number]. Keturah Fisher Neutrophils/100 WBC (Bld) 67.0 % Normal 43.0-75.0 [facility] Comment on above: Performed By: #### C BC ####[facility] [address] [id number]. Keturah Fisher Platelet mean volume (Bld) [Entitic vol] 9.5 fL Normal 9.5-13.5 [facility] Comment on above: Performed By: #### C BC ####[facility] [address] [address]Dr. Keturah Fisher PLT 272 103/ul Normal 150-450 [facility] Comment on above: Performed By: #### C BC ####[facility] [address] [id number]. Keturah Fisher RBC 4.34 106/ul Normal 4.20-5.40 [facility] Comment on above: Performed By: #### C BC ####[facility] [address] [id number]. Keturah Fisher WBC 10.9 103/ul Normal 4.0-11.0 [facility] Comment on above: Performed By: #### C BC ####[facility] [address] [place], [place] [id number]. Keturah Fisher CT ABD/PELV W CONon 08-14-19 [...] by: HEBERT MCPHERSON Date: 2021-08-13 17:[address] [facility] ER URINE PROFILEon 2 Bilirubin Ql (U) Negative Normal NEGATIVE [facility] Comment on above: Performed By: #### C BC #### [facility] [address] [address] [address] Keturah Fisher Clarity (U) CLEAR Normal CLEAR [facility] Comment on above: Performed By: #### C BC #### [facility] [address] [place] [address] Dr. Keturah Fisher Color (U) LT. YELLOW Normal YELLOW [facility] Comment on above: Performed By: #### C BC #### [facility] [address] [address] [address] Keturah BAH A micrscopic examination will be performed if indicated. Normal [facility] Comment on above: Performed By: #### C BC #### [facility] [address] [place] [address] Dr. Keturah Fisher Glucose Ql (U) Negative Normal NEGATIVE [facility] Comment on above: Performed By: #### C BC #### [facility] [address] [place] [address] Dr. Keturah Fisher Hemoglobin Ql (U) Negative Normal NEGATIVE [facility] Comment on above: Performed By: #### C BC #### [facility] [address] [place] [address] Dr. Keturah Fisher Ketones Ql (U) Negative Normal NEGATIVE [facility] Comment on above: Performed By: #### C BC #### [facility] [address] [address] [address] Keturah Fisher LEUKOCYTES Negative Normal NEGATIVE [facility] Comment on above: Performed By: #### C BC #### [facility] [address] [place] [address] Dr. Keturah Fisher Nitrite Ql (U) Negative Normal NEGATIVE [facility] Comment on above: Performed By: #### C BC #### [facility] [address] [place] [address] Dr. Keturah Fisher pH (U) 5.5 [pH] Normal 5-9 [facility] Comment on above: Performed By: #### C BC #### [facility] [address] [place] [address] Dr. Keturah Fisher SPEC GRAVITY 1.010 Normal 1.005-<=1.[address] [facility] Comment on above: Performed By: #### C BC #### [facility] [address] [place] [address] Dr. Keturah Fisher UA PROTEIN Negative Normal NEGATIVE/ TRACE [facility] Comment on above: Performed By: #### C BC #### [facility] [address] [place] [address] Dr. Keturah Fisher UR MICRO IND NOT INDICATED Normal [facility] Comment on above: Performed By: #### C BC #### [facility] [address] [place] [address] Dr. Keturah Fisher Urobilinogen Qn (U) 0.2 {Marizol'U}/dL Normal 0.2 - 1. 0 [facility] Comment on above: Performed By: #### C BC #### [facility] [address] [place] [address] Dr. Keturah Fisher LIPASEon 08-13-2021 Lipase [Catalytic activity/Vol] 217.0 U/L Normal 73.0-393.0 [facility] Comment on above: Performed By: #### C BC #### [facility] [address] [place] [address] Dr. Keturah Fisher PROF 14(COMP METB)on 022 Albumin [Mass/Vol] 3.9 g/dL Normal 3.4-5.0 [facility] Comment on above: Performed By: #### C BC #### [facility] [address] [place] [address] Dr. Keturah Fisher Albumin/Globulin [Mass ratio] 1.1 {ratio} Normal [facility] Comment on above: Performed By: #### C BC #### [facility] [address] [place] [address] Dr. Keturah Fisher ALP [Catalytic activity/Vol] 140 U/L Critically high 46-116 [facility] Comment on above: Performed By: #### C BC #### [facility] [address] [address] [address] Keturah Fisher ALT [Catalytic activity/Vol] 24 U/L Normal 14-59 [facility] Comment on above: Performed By: #### C BC #### [facility] [address] [address] [address] Keturah Fisher Anion gap [Moles/Vol] 11.7 mmol/L Normal [facility] Comment on above: Performed By: #### C BC #### [facility] [address] [address] [address] Keturah Fisher AST [Catalytic activity/Vol] 19 U/L Normal 15-37 [facility] Comment on above: Performed By: #### C BC #### [facility] [address] [address] [address] Keturah Fisher Bilirubin [Mass/Vol] 0.2 mg/dL Normal 0.2-1.0 [facility] Comment on above: Performed By: #### C BC #### [facility] [address] [place] [address] Dr. Keturah Fisher Calcium [Mass/Vol] 9.9 mg/dL Normal 8.5-10.1 [facility] Comment on above: Performed By: #### C BC #### [facility] [address] [place] [address] Dr. Keturah Fisher Chloride [Moles/Vol] 105 mmol/L Normal 98-107 [facility] Comment on above: Performed By: #### C BC #### [facility] [address] [place] [address] Dr. Keturah Fisher CO2 [Moles/Vol] 29.1 mmol/L Normal 21.0-32.0 [facility] Comment on above: Performed By: #### C BC #### [facility] [address] [place] [address] Dr. Keturah Fisher Creatinine [Mass/Vol] 0.81 mg/dL Normal 0.55-1.02 [facility] Comment on above: Performed By: #### C BC #### [facility] [address] [address] [address] Keturah Fisher EGFR-AF KENYAN >60 Normal >=60 [facility] Comment on above: Performed By: #### C BC #### [facility] [address] [id number] [address] Keturah Fisher EGFR-NON AF KENYAN >60 Normal >=60 [facility] Comment on above: Performed By: #### C BC #### [facility] [address] [address] [address] Keturah Fisher Globulin (S) [Mass/Vol] 3.4 g/dL Normal [facility] Comment on above: Performed By: #### C BC #### [facility] [address] [place] [address] Dr. Keturah Fisher Glucose [Mass/Vol] 87 mg/dL Normal 74-106 [facility] Comment on above: Performed By: #### C BC #### [facility] [address] [address] [address] Keturah Fisher Potassium [Moles/Vol] 3.8 mmol/L Normal 3.5-5.1 [facility] Comment on above: Performed By: #### C BC #### [facility] [address] [place] [address] Dr. Keturah Fisher Protein [Mass/Vol] 7.3 g/dL Normal 6.4-8.2 [facility] Comment on above: Performed By: #### C BC #### [facility] [address] [address] [address] Keturah Fisher Sodium [Moles/Vol] 142 mmol/L Normal 136-145 [facility] Comment on above: Performed By: #### C BC #### [facility] [address] [place] [address] Dr. Keturah Fisher Urea nitrogen [Mass/Vol] 11.0 mg/dL Normal 7.0-18.0 [facility] Comment on above: Performed By: #### C BC #### [facility] [address] [address] [address] Keturah Fisher Urea nitrogen/Creatinine [Mass ratio] 13.6 mg/mg Normal [facility] Comment on above: Performed By: #### C BC #### [facility] [address] [address] [address] Keturah Fisher Albumin [Mass/volume] in Ser um or PlasmaOrdered By: Keaton Barnard on 08-11-2021 Albumin [Mass/Vol] 3.4 g/dL 3.2-5.5 [facility] Basophils Auto (Bld) [#/Vol] Ordered By: Keaton Barnard on 08-11-2021 Basophils (Bld) [#/Vol] 0.1 10*3/uL 0.0-0.2 [facility] Basophils/100 WBC Auto (Bld) Ordered By: Keaton Barnard on 08-11-2021 Basophils/100 WBC (Bld) 0.9 % . [facility] Bilirubin Test strip Ql (U)O rdered By: Keaton Barnard on 08-11-2021 Bilirubin Ql (U) Negative Negative [facility] Blood hemoglobin measurement (mass/volume)Ordered By: Keaton Barnard on 08-11-2021 Hemoglobin (Bld) [Mass/Vol] 14.1 g/dL 11.8-15.4 [facility] Blood leukocytes automated c ount (number/volume)Ordered By: Keaton Barnard on 08-11-2021 WBC (Bld) [#/Vol] 9.7 10*3/uL 4.5-11.0 [facility] Color Auto (U)Ordered By: Herminia Barnard on 08-11-2021 Color (U) Yellow Yellow [facility] Creatinine and Glomerular fi ltration rate.predicted panel (S/P/Bld)Ordered By: Keaton Barnard on 08-11-2021 Creatinine [Mass/Vol] 0.95 mg/dL 0.44-1.03 [facility] Direct bilirubin measurement Ordered By: Keaton Barnard on 08-11-2021 Bilirubin.direct [Mass/Vol] mg/dL 0.0-0.4 [facility] Eosinophils Auto (Bld) [#/Vo l]Ordered By: Keaton Barnard on 08-11-2021 Eosinophils (Bld) [#/Vol] 0.1 10*3/uL 0.0-0.45 [facility] Eosinophils/100 WBC Auto (Bl d)Ordered By: Keaton Barnard on 08-11-2021 Eosinophils/100 WBC (Bld) 1.3 % . [facility] Erythrocyte distribution wid th Auto (RBC) [Ratio]Ordered By: Keaton Barnard on 08-11-2021 Erythrocyte distribution width (RBC) [Ratio] 13.2 % 11.9-15.3 [facility] Estimated glomerular filtrat ion rate (GFR) non- AmericanOrdered By: Keaton Barnard on 08-11-2021 GFR/1.73 sq M.predicted among non-blacks MDRD (S/P/Bld) [Vol rate/Area] > 60 mL/Min [facility] Globulin Calc (S) [Mass/Vol] Ordered By: Keaton Barnard on 08-11-2021 Globulin (S) [Mass/Vol] 2.6 g/dL [facility] Hematocrit Auto (Bld) [Volum e fraction]Ordered By: Keaton Barnard on 08-11-2021 Hematocrit (Bld) [Volume fraction] 42.1 % 34.0-46.4 [facility] Ketones Auto test strip (U) [Mass/Vol]Ordered By: Keaton Barnard on 08-11-2021 Ketones (U) [Mass/Vol] Negative Negative Fi [facility] - Chemistry and C hemistry - challengeOrdered By: Keaton Barnard on 08-11-2021 Lipase [Catalytic activity/Vol] 89.0 U/L 22-51 [facility] - CoagulationOrde red By: Keaton Barnard on 08-11-2021 PT Coag (PPP) [Time] 12.5 s 9.0-12.9 [facility] - Hematology and Cell countsOrdered By: Keaton Barnard on 08-11-2021 Nucleated RBC/100 WBC (Bld) [Ratio] 0.1 % 0-0.5 [facility] Lymphocytes Auto (Bld) [#/Vo l]Ordered By: Keaton Barnard on 08-11-2021 Lymphocytes (Bld) [#/Vol] 2.5 10*3/uL 1.00-4.8 [facility] Lymphocytes/100 WBC Auto (Bl d)Ordered By: Keaton Barnard on 08-11-2021 Lymphocytes/100 WBC (Bld) 25.8 % . [facility] MCH Auto (RBC) [Entitic mass ]Ordered By: Keaton Barnard on 08-11-2021 MCH (RBC) [Entitic mass] 32.4 pg 24.7-34.3 [facility] MCHC Auto (RBC) [Mass/Vol]Or dered By: Keaton Barnard on 08-11-2021 MCHC (RBC) [Mass/Vol] 33.4 g/dL 32.0-35.0 [facility] MCV Auto (RBC) [Entitic vol] Ordered By: Keaton Barnard on 08-11-2021 MCV (RBC) [Entitic vol] 96.8 fL 80-100 [facility] Monocytes Auto (Bld) [#/Vol] Ordered By: Keaton Barnard on 08-11-2021 Monocytes (Bld) [#/Vol] 0.8 10*3/uL 0.0-0.8 [facility] Monocytes/100 WBC Auto (Bld) Ordered By: Keaton Barnard on 08-11-2021 Monocytes/100 WBC (Bld) 8.7 % . [facility] Neutrophils Auto (Bld) [#/Vo l]Ordered By: Keaton Barnard on 08-11-2021 Neutrophils (Bld) [#/Vol] 6.1 10*3/uL 1.8-7.7 [facility] Neutrophils/100 WBC Auto (Bl d)Ordered By: Keaton Barnard on 08-11-2021 Neutrophils/100 WBC (Bld) 63.3 % . [facility] Nitrite Test strip Ql (U)Ord ered By: Keaton Barnard on 08-11-2021 Nitrite Ql (U) Negative Negative [facility] No Panel InformationOrdered By: Keaton Barnard on 08-11-2021 Estimated GFR () > 60 mL/Min [facility] Comment on above: GFR estimated refere nce range: According to KDOQI guidelines, <60 ml/min/1.73m2 is sufficient to diagnose a patient with chronic kidney disease. Pharmacy Creatinine Clearance (Chem 62.33 [facility] Platelet mean volume Auto (B ld) [Entitic vol]Ordered By: Keaton Barnard on 08-11-2021 Platelet mean volume (Bld) [Entitic vol] 8.0 fL 6.3-10.7 [facility] Platelet poor plasma interna tional normalized ratio (INR) by coagulation assay (relatOrdered By: Keaton Barnard on 08-11-2021 INR Coag (PPP) [Relative time] 1.1 {INR} [facility] Comment on above: INR Therapeutic Rang [...] 08-11-2021 Platelets (Bld) [#/Vol] 252 10*3/uL 150-450 [facility] Protein Auto test strip (U) [Mass/Vol]Ordered By: Keaton Barnard on 08-11-2021 Protein (U) [Mass/Vol] Negative Negative Fi [facility] Protein [Mass/volume] in Ser um or PlasmaOrdered By: Keaton Barnard on 08-11-2021 Protein [Mass/Vol] 6.0 g/dL 6.1-7.9 [facility] RBC Auto (Bld) [#/Vol]Ordere d By: Keaton Barnard on 08-11-2021 RBC (Bld) [#/Vol] 4.35 10*6/uL 3.60-5.00 [facility] Serum or plasma alanine hughes otransferase measurement without P-5'-P (enzymatic activiOrdered By: Keaton Barnard on 08-11-2021 ALT No additional P-5'-P [Catalytic activity/Vol] 12 U/L 10-60 [facility] Serum or plasma albumin/glob ulin mass ratioOrdered By: Keaton Barnard on 08-11-2021 Albumin/Globulin [Mass ratio] 1.3 {ratio} [facility] Serum or plasma alkaline jaqueline sphatase measurement (enzymatic activity/volume)Ordered By: Keaton Barnard on 08-11-2021 ALP [Catalytic activity/Vol] 98 U/L 32-92 [facility] Serum or plasma aspartate am inotransferase measurement (enzymatic activity/volume)Ordered By: Keaton Barnard on 08-11-2021 AST [Catalytic activity/Vol] 17 U/L 10-42 [facility] Serum or plasma calcium priscilla urement (mass/volume)Ordered By: Keaton Barnard on 08-11-2021 Calcium [Mass/Vol] 9.3 mg/dL 8.2-10.2 [facility] Serum or plasma chloride daron surement (moles/volume)Ordered By: Keaton Barnard on 08-11-2021 Chloride [Moles/Vol] 104 mmol/L 95-114 [facility] Serum or plasma glucose priscilla urement (mass/volume)Ordered By: Keaton Barnard on 08-11-2021 Glucose [Mass/Vol] 95 mg/dL 70-100 [facility] Comment on above: ADA recommended refe rence range Random Glucose Reference Range is dependent on time and content of last meal. Glucose of more than 200 mg/dL in a nonstressed, ambulatory subject supports the diagnosis of Diabetes Mellitus. Serum or plasma non-glucuron idated bilirubin measurement (mass/volume)Ordered By: Keaton Barnard on 08-11-2021 Bilirubin.indirect [Mass/Vol] TNP [facility] Comment on above: Test not performed Serum or plasma potassium me asurement (moles/volume)Ordered By: Keaton Barnard on 08-11-2021 Potassium [Moles/Vol] 3.8 mmol/L 3.5-5.1 [facility] Serum or plasma sodium measu rement (moles/volume)Ordered By: Keaton Barnard on 08-11-2021 Sodium [Moles/Vol] 138 mmol/L 136-146 [facility] Serum or plasma total biliru bin measurement (mass/volume)Ordered By: Keaton Barnard on 08-11-2021 Bilirubin [Mass/Vol] 0.3 mg/dL 0.3-1.2 [facility] Serum or plasma total carbon dioxide measurement (moles/volume)Ordered By: Keaton Barnard on 08-11-2021 CO2 [Moles/Vol] 24.8 mmol/L 22.0-30.0 [facility] Serum or plasma urea nitroge n measurement (mass/volume)Ordered By: Keaton Barnard on 08-11-2021 Urea nitrogen [Mass/Vol] 10 mg/dL 9- [facility] Specific gravity Auto test s trip (U) [Rel density]Ordered By: Keaton Barnard on 08-11-2021 Specific gravity (U) [Rel density] 1.028 1.001-1.030 [facility] Troponin I.cardiac [Mass/vol ume] in Serum or Plasma by High sensitivity methodOrdered By: Keaton Barnard on 08-11-2021 Troponin I.cardiac High sensitivity method [Mass/Vol] 3 pg/mL 0-15 [facility] Urine clarity by refractomet ry automatedOrdered By: Keaton Barnard on 08-11-2021 Clarity Refractometry automated (U) Clear Clear [facility] Urine glucose measurement by automated test strip (mass/volume)Ordered By: Keaton Barnard on 08-11-2021 Glucose Auto test strip (U) [Mass/Vol] Normal mg/dL Normal [facility] Urine hemoglobin detection b y automated test stripOrdered By: Keaton Barnard on 08-11-2021 Hemoglobin Auto test strip Ql (U) Negative Negative [facility] Urine leukocyte esterase det ection by automated test stripOrdered By: Keaton Barnard on 08-11-2021 Leukocyte esterase Auto test strip Ql (U) Negative Negative [facility] Urobilinogen Auto test strip (U) [Mass/Vol]Ordered By: Keaton Barnard on 08-11-2021 Urobilinogen (U) [Mass/Vol] Normal mg/dL Normal [facility] pH Auto test strip (U)Ordere d By: Keaton Barnard on 08-11-2021 pH (U) 5.0 [pH] 5.0-9.0 [facility] AMYLASEon 07-31-2021 Amylase [Catalytic activity/Vol] 158 U/L Critically high 25-115 [facility] Comment on above: Performed By: #### L IPA, CMP, CRP, NTA #### [facility] [address] [place] [address] Dr. Keturah Fisher CBC AUTO DIFFon 07-31-2021 BASO # 0.1 103/ul Normal 0.0-0.1 [facility] Comment on above: Performed By: #### C BC ####[facility] [address] [place] [address]DrGopal Fisher Basophils/100 WBC (Bld) 0.7 % Normal 0.2-2.0 [facility] Comment on above: Performed By: #### C BC ####[facility] [address] [place], [place] [address]DrGopal Fisher EO # 0.1 103/ul Normal 0.0-0.7 [facility] Comment on above: Performed By: #### C BC ####[facility] [address] [place], [place] [address]DrGopal Fisher Eosinophils/100 WBC (Bld) 0.9 % Normal 0.9-7.0 [facility] Comment on above: Performed By: #### C BC ####[facility] [address] [place], [place] [address]DrGopal Fisher Erythrocyte distribution width (RBC) [Ratio] 12.7 % Normal 11.0-15.0 [facility] Comment on above: Performed By: #### C BC ####[facility] [address] [place], [place] [address]DrGopal Fisher Hematocrit (Bld) [Volume fraction] 43.2 % Normal 36.0-48.0 [facility] Comment on above: Performed By: #### C BC ####[facility] [address] [place], [place] [address]Dr. Keturah Fisher Hemoglobin (Bld) [Mass/Vol] 14.5 g/dL Normal 12.0-16.0 [facility] Comment on above: Performed By: #### C BC ####[facility] [address] [place] [address]DrGopal Fisher IG # 0.04 10e3/ul Critically high 0.00-0.03 [facility] Comment on above: Performed By: #### C BC ####[facility] [address] [place] [id number]. Keturah Fisher IG % 0.4 % Normal 0.0-0.5 [facility] Comment on above: Performed By: #### C BC ####[facility] [address] [place] [id number]. Keturah Fisher LYMPH # 2.8 103/ul Normal 1.2-3.8 [facility] Comment on above: Performed By: #### C BC ####[facility] [address] [place] [id number]. Keturah Fisher Lymphocytes/100 WBC (Bld) 24.9 % Normal 20.5-60.0 [facility] Comment on above: Performed By: #### C BC ####[facility] [address] [place] [id number]. Keturah Fisher MANUAL DIFF REQ NO Normal [facility] Comment on above: Performed By: #### C BC ####[facility] [address] [place] [id number]. Keturah Fisher MCH (RBC) [Entitic mass] 32.7 pg Normal 26.7-34.0 [facility] Comment on above: Performed By: #### C BC ####[facility] [address] [place] [id number]. Keturah Fisher MCHC (RBC) [Mass/Vol] 33.6 g/dL Normal 29.9-35.2 [facility] Comment on above: Performed By: #### C BC ####[facility] [address] [place] [id number]. Keturah Fisher MCV (RBC) [Entitic vol] 97.5 fL Normal 81.0-99.0 [facility] Comment on above: Performed By: #### C BC ####[facility] [address] [place] [id number]. Keturah Fisher MONO # 0.9 103/ul Critically high 0.3-0.8 [facility] Comment on above: Performed By: #### C BC ####[facility] [address] [place] [id number]. Keturah Fisher Monocytes/100 WBC (Bld) 8.1 % Normal 1.7-12.0 [facility] Comment on above: Performed By: #### C BC ####[facility] [address] [place] [id number]. Keturah Fisher NEUT # 7.3 103/ul Critically high 1.4-6.5 [facility] Comment on above: Performed By: #### C BC ####[facility] [address] [place] [id number]. Keturah Fisher Neutrophils/100 WBC (Bld) 65.0 % Normal 43.0-75.0 [facility] Comment on above: Performed By: #### C BC ####[facility] [address] [place] [address]Dr. Keturah Fisher Platelet mean volume (Bld) [Entitic vol] 10.0 fL Normal 9.5-13.5 [facility] Comment on above: Performed By: #### C BC ####[facility] [address] [place] [id number]. Keturah Fisher PLT 245 103/ul Normal 150-450 [facility] Comment on above: Performed By: #### C BC ####[facility] [address] [place] [id number]. Keturah Fisher RBC 4.43 106/ul Normal 4.20-5.40 [facility] Comment on above: Performed By: #### C BC ####[facility] [address] [place] [id number]. Keturah Fisher WBC 11.2 103/ul Critically high 4.0-11.0 [facility] Comment on above: Performed By: #### C BC ####[facility] [address] [place] [address]Dr. Keturah Fisher LIPASEon 07-31-2021 Lipase [Catalytic activity/Vol] 439.0 U/L Critically high 73.0-393.0 [facility] Comment on above: Performed By: #### L IPA, CMP, CRP, NAT #### [facility] [address] [place] [address] Dr. Keturah Fisher PROF 14(COMP METB)on 022 Albumin [Mass/Vol] 3.6 g/dL Normal 3.4-5.0 [facility] Comment on above: Performed By: #### L IPA, CMP, CRP, NAT #### [facility] [address] [place] [address] Dr. Keturah Fisher Albumin/Globulin [Mass ratio] 1.1 {ratio} Normal [facility] Comment on above: Performed By: #### L IPA, CMP, CRP, NAT #### [facility] [address] [place] [address] Dr. Keturah Fisher ALP [Catalytic activity/Vol] 119 U/L Critically high 46-116 [facility] Comment on above: Performed By: #### L IPA, CMP, CRP, NAT #### [facility] [address] [place] [address] Dr. Keturah Fisher ALT [Catalytic activity/Vol] 20 U/L Normal 14-59 [facility] Comment on above: Performed By: #### L IPA, CMP, CRP, NAT #### [facility] [address] [place] [address] Dr. Keturah Fisher Anion gap [Moles/Vol] 13.4 mmol/L Normal [facility] Comment on above: Performed By: #### L IPA, CMP, CRP, NAT #### [facility] [address] [place] [address] Dr. Keturah Fisher AST [Catalytic activity/Vol] 16 U/L Normal 15-37 [facility] Comment on above: Performed By: #### L IPA, CMP, CRP, NAT #### [facility] [address] [place] [address] Dr. Keturah Fisher Bilirubin [Mass/Vol] 0.1 mg/dL Critically low 0.2-1.0 [facility] Comment on above: Performed By: #### L IPA, CMP, CRP, NAT #### [facility] [address] [place] [address] Dr. Keturah Fisher Calcium [Mass/Vol] 8.9 mg/dL Normal 8.5-10.1 [facility] Comment on above: Performed By: #### L IPA, CMP, CRP, NAT #### [facility] [address] [place] [address] Dr. Keturah Fisher Chloride [Moles/Vol] 106 mmol/L Normal 98-107 [facility] Comment on above: Performed By: #### L IPA, CMP, CRP, NAT #### [facility] [address] [place] [address] Dr. Keturah Fisher CO2 [Moles/Vol] 25.4 mmol/L Normal 21.0-32.0 [facility] Comment on above: Performed By: #### L IPA, CMP, CRP, NAT #### [facility] [address] [place] [address] Dr. Keturah Fisher Creatinine [Mass/Vol] 0.73 mg/dL Normal 0.55-1.02 [facility] Comment on above: Performed By: #### L IPA, CMP, CRP, NAT #### [facility] [address] [place] [address] Dr. Keturah Fisher EGFR-AF KENYAN >60 Normal >=60 [facility] Comment on above: Performed By: #### L IPA, CMP, CRP, NAT #### [facility] [address] [place] [address] Dr. Keturah Fisher EGFR-NON AF KENYAN >60 Normal >=60 [facility] Comment on above: Performed By: #### L IPA, CMP, CRP, ANT #### [facility] [address] [place] [address] Dr. Keturah Fisher Globulin (S) [Mass/Vol] 3.2 g/dL Normal [facility] Comment on above: Performed By: #### L IPA, CMP, CRP, NAT #### [facility] [address] [place] [address] Dr. Keturah Fisher Glucose [Mass/Vol] 105 mg/dL Normal 74-106 [facility] Comment on above: Performed By: #### L IPA, CMP, CRP, NAT #### [facility] [address] [place] [address] [address] Keturah Fisher Potassium [Moles/Vol] 3.8 mmol/L Normal 3.5-5.1 [facility] Comment on above: Performed By: #### L IPA, CMP, CRP, NAT #### [facility] [address] [place] [address] Dr. Keturah Fisher Protein [Mass/Vol] 6.8 g/dL Normal 6.4-8.2 [facility] Comment on above: Performed By: #### L IPA, CMP, CRP, NAT #### [facility] [address] [place] [address] Dr. Keturah Fisher Sodium [Moles/Vol] 141 mmol/L Normal 136-145 [facility] Comment on above: Performed By: #### L IPA, CMP, CRP, NAT #### [facility] [address] [place] [address] Dr. Keturah Fisher Urea nitrogen [Mass/Vol] 12.0 mg/dL Normal 7.0-18.0 [facility] Comment on above: Performed By: #### L IPA, CMP, CRP, NAT #### [facility] [address] [place] [address] Dr. Keturah Fisher Urea nitrogen/Creatinine [Mass ratio] 16.4 mg/mg Normal [facility] Comment on above: Performed By: #### L IPA, CMP, CRP, NAT #### [facility] [address] [place] [address] Dr. Keturah Fisher TROPONIN, HIGH SENSITIVITYon 07-31-2021 HSTROP 4.2 pg/mL Normal 4.0-51.3 [facility] Comment on above: Result Comment: CUT- OFF POINTS HAVE BEEN ESTABLISHED BASED ON THE FOURTH UNIVERSAL DEFINITIONS OF MYOCARDIAL INFARCTION. THE UPPER REFERENCE LIMIT (URL) OF TROPONIN, DEFINED THE 99TH PERCENTILE OF cTnI DISTRIBUTION IN A REFERENCE POPULATION, HAS BEEN CONFIRMED THE DECISION THRESHOLD FOR DE DIAGNOSIS. Performed By: #### L IPA, CMP, CRP, NAT #### [facility] [address] [place] [address] Dr. Keturah Fisher AMYLASEon 07-19-2021 Amylase [Catalytic activity/Vol] 198 U/L Critically high 25-115 [facility] Comment on above: Performed By: #### A MY, ROB, CMP ####[facility] [address] [place] [address]Dr. Keturah Fisher CBC AUTO DIFFon 07-19-2021 BASO # 0.1 103/ul Normal 0.0-0.1 [facility] Comment on above: Performed By: #### C BC ####[facility] [address] [place] [address]Dr. Keturah Fisher Basophils/100 WBC (Bld) 0.7 % Normal 0.2-2.0 [facility] Comment on above: Performed By: #### C BC ####[facility] [address] [place] [address]Dr. Keturah Fisher EO # 0.1 103/ul Normal 0.0-0.7 [facility] Comment on above: Performed By: #### C BC ####[facility] [address] [place], [place] [address]Dr. Keturah Fisher Eosinophils/100 WBC (Bld) 1.0 % Normal 0.9-7.0 [facility] Comment on above: Performed By: #### C BC ####[facility] [address] [place] [address]Dr. Keturah Fisher Erythrocyte distribution width (RBC) [Ratio] 12.5 % Normal 11.0-15.0 [facility] Comment on above: Performed By: #### C BC ####[facility] [address] [place] [address]Dr. Keturah Fisher Hematocrit (Bld) [Volume fraction] 42.4 % Normal 36.0-48.0 [facility] Comment on above: Performed By: #### C BC ####[facility] [address] [place] [address]Dr. Keturah Fisher Hemoglobin (Bld) [Mass/Vol] 14.2 g/dL Normal 12.0-16.0 [facility] Comment on above: Performed By: #### C BC ####[facility] [address] [place] [id number]. Keturah Fisher IG # 0.03 10e3/ul Normal 0.00-0.03 [facility] Comment on above: Performed By: #### C BC ####[facility] [address] [place] [address]Dr. Keturah Fisher IG % 0.3 % Normal 0.0-0.5 [facility] Comment on above: Performed By: #### C BC ####[facility] [address] [place] [address]Dr. Keturah Fisher LYMPH # 3.0 103/ul Normal 1.2-3.8 [facility] Comment on above: Performed By: #### C BC ####[facility] [address] [place] [address]Dr. Keturah Fisher Lymphocytes/100 WBC (Bld) 29.5 % Normal 20.5-60.0 [facility] Comment on above: Performed By: #### C BC ####[facility] [address] [place] [address]Dr. Keturah Fisher MANUAL DIFF REQ NO Normal [facility] Comment on above: Performed By: #### C BC ####[facility] [address] [place] [address]Dr. Keturah Fisher MCH (RBC) [Entitic mass] 32.8 pg Normal 26.7-34.0 [facility] Comment on above: Performed By: #### C BC ####[facility] [address] [place] [address]Dr. Keturah Fisher MCHC (RBC) [Mass/Vol] 33.5 g/dL Normal 29.9-35.2 [facility] Comment on above: Performed By: #### C BC ####[facility] [address] [place] [address]Dr. Keturah Fisher MCV (RBC) [Entitic vol] 97.9 fL Normal 81.0-99.0 [facility] Comment on above: Performed By: #### C BC ####[facility] [address] [place] [address]Dr. Keturah Fisher MONO # 1.0 103/ul Critically high 0.3-0.8 [facility] Comment on above: Performed By: #### C BC ####[facility] [address] [place] [address]Dr. Keturah Fisher Monocytes/100 WBC (Bld) 9.3 % Normal 1.7-12.0 [facility] Comment on above: Performed By: #### C BC ####[facility] [address] [place] [address]Dr. Keturah Fisher NEUT # 6.1 103/ul Normal 1.4-6.5 [facility] Comment on above: Performed By: #### C BC ####[facility] [address] [place] [address]Dr. Keturah Fisher Neutrophils/100 WBC (Bld) 59.2 % Normal 43.0-75.0 [facility] Comment on above: Performed By: #### C BC ####[facility] [address] [place] [address]Dr. Keturah Fisher Platelet mean volume (Bld) [Entitic vol] 9.8 fL Normal 9.5-13.5 [facility] Comment on above: Performed By: #### C BC ####[facility] [address] [place] [address]Dr. Keturah Fisher PLT 249 103/ul Normal 150-450 [facility] Comment on above: Performed By: #### C BC ####[facility] [address] [place] [address]Dr. Keturah Fisher RBC 4.33 106/ul Normal 4.20-5.40 [facility] Comment on above: Performed By: #### C BC ####[facility] [address] [place] [address]Dr. Keturah Fisher WBC 10.2 103/ul Normal 4.0-11.0 [facility] Comment on above: Performed By: #### C BC ####[facility] [address] [place], [place] [id number]. Keturah Fisher LIPASEon 07-19-2021 Lipase [Catalytic activity/Vol] 554.0 U/L Critically high 73.0-393.0 [facility] Comment on above: Performed By: #### A MY, LIPA, CMP ####[facility] [address] [place] [address]Dr. Keturah Fisher PROF 14(COMP METB)on 022 Albumin [Mass/Vol] 4.0 g/dL Normal 3.4-5.0 [facility] Comment on above: Performed By: #### A MY, LIPA, CMP ####[facility] [address] [place] [address]Dr. Keturah Fisher Albumin/Globulin [Mass ratio] 1.1 {ratio} Normal [facility] Comment on above: Performed By: #### A MY, LIPA, CMP ####[facility] [address] [place] [address]Dr. Keturah Fisher ALP [Catalytic activity/Vol] 141 U/L Critically high 46-116 [facility] Comment on above: Performed By: #### A MY, LIPA, CMP ####[facility] [address] [place] [address]Dr. Keturah Fisher ALT [Catalytic activity/Vol] 21 U/L Normal 14-59 [facility] Comment on above: Performed By: #### A MY, LIPA, CMP ####[facility] [address] [place] [address]Dr. Keturah Fisher Anion gap [Moles/Vol] 10.3 mmol/L Normal [facility] Comment on above: Performed By: #### A MY, LIPA, CMP ####[facility] [address] [place] [address]Dr. Keturah Fisher AST [Catalytic activity/Vol] 22 U/L Normal 15-37 [facility] Comment on above: Performed By: #### A MY, LIPA, CMP ####[facility] [address] [place] [address]Dr. Keturah Fisher Bilirubin [Mass/Vol] 0.3 mg/dL Normal 0.2-1.0 [facility] Comment on above: Performed By: #### A ROB BERNSTEIN, CMP ####[facility] [address] [place] [address]Dr. Keturah Fisher Calcium [Mass/Vol] 9.9 mg/dL Normal 8.5-10.1 [facility] Comment on above: Performed By: #### A AMANDEEP LIPA, CMP ####[facility] [address] [place] [address]Dr. Keturah Fisher Chloride [Moles/Vol] 103 mmol/L Normal 98-107 [facility] Comment on above: Performed By: #### A ROB BERNSTEIN, CMP ####[facility] [address] [place], [place] [address]Dr. Keturah Fisher CO2 [Moles/Vol] 27.6 mmol/L Normal 21.0-32.0 [facility] Comment on above: Performed By: #### A REBECA BERNSTEINA, CMP ####[facility] [address] [place], [place] [address]Dr. Keturah Fisher Creatinine [Mass/Vol] 0.93 mg/dL Normal 0.55-1.02 [facility] Comment on above: Performed By: #### A ROB BERNSTEIN, CMP ####[facility] [address] [place] [address]Dr. Keturah Fisher EGFR-AF KENYAN >60 Normal >=60 [facility] Comment on above: Performed By: #### A AMANDEEP LIPA, CMP ####[facility] [address] [place] [address]Dr. Keturah Fisher EGFR-NON AF KENYAN >60 Normal >=60 [facility] Comment on above: Performed By: #### A AMANDEEP LIPA, CMP ####[facility] [address] [place], [place] [address]Dr. Keturah Fisher Globulin (S) [Mass/Vol] 3.5 g/dL Normal [facility] Comment on above: Performed By: #### A AMANDEEP LIPA, CMP ####[facility] [address] [place] [id number]. Keturah Fisher Glucose [Mass/Vol] 99 mg/dL Normal 74-106 [facility] Comment on above: Performed By: #### A ROB BERNSTEIN, CMP ####[facility] [address] [place] [address]Dr. Keturah Fisher Potassium [Moles/Vol] 3.9 mmol/L Normal 3.5-5.1 [facility] Comment on above: Performed By: #### A AMANDEEP LIPA, CMP ####[facility] [address] [place] [id number]. Keturah Fisher Protein [Mass/Vol] 7.5 g/dL Normal 6.4-8.2 [facility] Comment on above: Performed By: #### A AMANDEEP LIPA, CMP ####[facility] [address] [place] [address]Dr. Keturah Fisher Sodium [Moles/Vol] 137 mmol/L Normal 136-145 [facility] Comment on above: Performed By: #### A AMANDEEP LIPA, CMP ####[facility] [address] [place] [address]Dr. Keturah Fisher Urea nitrogen [Mass/Vol] 9.0 mg/dL Normal 7.0-18.0 [facility] Comment on above: Performed By: #### A AMANDEEP LIPA, CMP ####[facility] [address] [place] [address]Dr. Keturah Fisher Urea nitrogen/Creatinine [Mass ratio] 9.7 mg/mg Normal [facility] Comment on above: Performed By: #### A AMANDEEP LIPA, CMP ####[facility] [address] [place] [address]Dr. Keturah Fisher XR ABD FLAT UP_PA Jorje [...] by: LYNNE PERDOMO Date: 2021-07-19 16:[address] [facility] COVID Quick Testingon 2021 Result Positive [facility] Other ANES Marcial 11-13-2020 ANES POST HNO ID: [id number] Author: Ion Avila MD Service: Anesthesiology Author [...] 13, 2020 TIME: 12:38 PM PAGER/CONTACT #: [phone] Normal [facility] NURSING PROGon 11-13-2020 NURSING PROG HNO ID: [id number] Author: Viky Nguyen RN Service: Nursing Author [...] None Electronically Signed By: Yaquelin Nguyen RN [facility] NURSING PROG HNO ID: [id number] Author: Landy Smith RN Service: Nursing Author [...] Landy Smith RN In Department: [facility] Tele[facility] CHIOMA RAINEY ([id number]) 1970 F Date Time Provider Department 11/07/20 [...] have family/friend present for procedure? transport home:Patient/patient physician relations representative was told that if they do [...] area. Any barriers to Patient learning: Patient/Patient Marketing Development Representative responded appropriately on phone. Type of instruction [...] Status:Closed by NASREEN GORMAN on 11/07/20 Normal [facility] CT ABDOMEN PELVIS W IV CONTR [...] Jhoan Beatty MD 03/28/20 Final result Normal [facility] Amylaseon 03-26-2020 Amylase [Catalytic activity/Vol] 185 U/L High 28-100 [facility] Comment on above: Performed By: #### R EJEC, NAT, LIP, CMPX #### [facility] [address] [place] [address] House Father: Ion Jasso MD Amylase [Catalytic activity/Vol] 185 U/L High 28 - 100 U/L [place] CBC Auto Differentialon 03-09 Basophils (Bld) [#/Vol] 0.06 10*3/uL [place] Basophils/100 WBC (Bld) 1 % 0 - 2 % [place] Differential Type NOT REPORTED [place] Eosinophils (Bld) [#/Vol] 0.12 10*3/uL [place] Eosinophils/100 WBC (Bld) 1 % 1 - 4 % [place] Erythrocyte distribution width (RBC) [Ratio] 12.4 % 11.8 - 14.4 % [place] Hematocrit (Bld) [Volume fraction] 40.6 % 36.3 - 47.1 % [place] Hemoglobin (Bld) [Mass/Vol] 13.7 g/dL 11.9 - 15.1 g/dL [place] Immature granulocytes (Bld) [#/Vol] 0 % 0 [place] Immature granulocytes (Bld) [#/Vol] 10*3/uL [place] Lymphocytes (Bld) [#/Vol] 2.62 10*3/uL [place] Lymphocytes/100 WBC (Bld) 27 % 24 - 43 % [place] MCH (RBC) [Entitic mass] 33.4 pg 25.2 - 33.5 pg [place] MCHC (RBC) [Mass/Vol] 33.7 g/dL 28.4 - 34.8 g/dL [place] MCV (RBC) [Entitic vol] 99.0 fL 82.6 - 102.9 fL [place] Monocytes (Bld) [#/Vol] 0.78 10*3/uL [place] Monocytes/100 WBC (Bld) 8 % 3 - 12 % [place] Platelet mean volume (Bld) [Entitic vol] 9.4 fL 8.1 - 13.5 fL [place] Platelets (Bld) [#/Vol] 235 10*3/uL [place] Platelets (Bld) [#/Vol] NOT REPORTED [place] RBC (Bld) [#/Vol] 4.10 10*6/uL 3.95 - 5.1 1 m/uL [place] RBC morphology finding Nom (Bld) NOT REPORTED [place] Segmented neutrophils/100 WBC (Bld) 63 % 36 - 65 % [place] Segs Absolute 5.96 [place] WBC (Bld) [#/Vol] 9.6 10*3/uL [place] WBC (Bld) [#/Vol] 0.0 10*3/uL 0.0 per 10 0 WBC [place] WBC Morphology NOT REPORTED [place], [place] CBC with Diffon 03-26-2020 Abs. Basophil 0.06 k/uL Normal 0.00-0.20 [facility] Comment on above: Performed By: #### C DP, LIP #### [facility] [address] [place] [address] House Father: Zafar Castillo MD Abs.Imm.Granulocyte <0.03 Normal 0.00-0.30 [facility] Comment on above: Performed By: #### C DP, LIP #### [facility] [address] [place] [address] House Father: Zafar Castillo MD Abs.Neutrophil (Seg) 5.96 k/uL Normal 1.50-8.10 [facility] Comment on above: Performed By: #### C DP, LIP #### [facility] [address] [place] [address] House Father: Zafar Castillo MD Basophils/100 WBC (Bld) 1 % Normal 0-2 [facility] Comment on above: Performed By: #### C DP, LIP #### [facility] [address] [place] [address] House Father: Zafar Castillo MD Eosinophils (Bld) [#/Vol] 0.12 10*3/uL Normal 0.00-0.44 [facility] Comment on above: Performed By: #### C DP, LIP #### [facility] [address] [place], [facility] House Father: Zafar Castillo MD Eosinophils/100 WBC (Bld) 1 % Normal 1-4 [facility] Comment on above: Performed By: #### C DP, LIP #### [facility] [address] [place], [facility] House Father: Zafar Castillo MD Erythrocyte distribution width (RBC) [Ratio] 12.4 % Normal 11.8-14.4 [facility] Comment on above: Performed By: #### C DP, LIP #### [address] [place] [phone] House Father: Zafar Castillo MD Hematocrit (Bld) [Volume fraction] 40.6 % Normal 36.3-47.1 [facility] Comment on above: Performed By: #### C DP, LIP #### [facility] [address] [place], [facility] House Father: Zafar Castillo MD Hemoglobin (Bld) [Mass/Vol] 13.7 g/dL Normal 11.9-15.1 [facility] Comment on above: Performed By: #### C DP, LIP #### [facility] [address] [place], [facility] House Father: Zafar Castillo MD Immature granulocytes (Bld) [#/Vol] 0 % Normal 0 [facility] Comment on above: Performed By: #### C DP, LIP #### [facility] [address] [place] [phone] House Father: Zafar Castillo MD Lymphocytes (Bld) [#/Vol] 2.62 10*3/uL Normal 1.10-3.70 [facility] Comment on above: Performed By: #### C DP, LIP #### [facility] [address] [place], [facility] House Father: Zafar Castillo MD Lymphocytes/100 WBC (Bld) 27 % Normal 24-43 [facility] Comment on above: Performed By: #### C DP, LIP #### [facility] [address] [place], [facility] House Father: Zafar Castillo MD MCH (RBC) [Entitic mass] 33.4 pg Normal 25.2-33.5 [facility] Comment on above: Performed By: #### C DP, LIP #### [facility] [address] [place] [phone] House Father: Zafar Castillo MD MCHC (RBC) [Mass/Vol] 33.7 g/dL Normal 28.4-34.8 [facility] Comment on above: Performed By: #### C DP, LIP #### [address] [place], [facility] House Father: Zafar Castillo MD MCV (RBC) [Entitic vol] 99.0 fL Normal 82.6-102.9 [facility] Comment on above: Performed By: #### C DP, LIP #### [address] [place], [facility] House Father: Zafar Castillo MD Monocytes (Bld) [#/Vol] 0.78 10*3/uL Normal 0.10-1.20 [facility] Comment on above: Performed By: #### C DP, LIP #### [facility] [address] [place] [address] House Father: Zafar Castillo MD Monocytes/100 WBC (Bld) 8 % Normal 3-12 [facility] Comment on above: Performed By: #### C DP, LIP #### [facility] [address] [place], [facility] House Father: Zafar Castillo MD Neutrophil (Seg) 63 % Normal 36-65 [facility] Comment on above: Performed By: #### C DP, LIP #### [facility] [address] [place], [place] [id number] House Father: Zafar Castillo MD NRBC Automated 0.0 per 100 WBC Normal 0.0 [facility] Comment on above: Performed By: #### C DP, LIP #### [facility] [address] [place], [place] [address] House Father: Zafar Castillo MD Platelet mean volume (Bld) [Entitic vol] 9.4 fL Normal 8.1-13.5 [facility] Comment on above: Performed By: #### C DP, LIP #### [facility] [address] [place], [place] [id number] House Father: Zafar Castillo MD Platelets (Bld) [#/Vol] 235 10*3/uL Normal 138-453 [facility] Comment on above: Performed By: #### C DP, LIP #### [address] [place], [place] [id number] House Father: Zafar Castillo MD RBC (Bld) [#/Vol] 4.10 10*6/uL Normal 3.95-5.11 [facility] Comment on above: Performed By: #### C DP, LIP #### [facility] [address] [place], [place] [id number] House Father: Zafar Castillo MD WBC (Bld) [#/Vol] 9.6 10*3/uL Normal 3.5-11.3 [facility] Comment on above: Performed By: #### C DP, LIP #### [facility] [address] [place], [place] [phone] House Father: Zafar Castillo MD Auto Diff Performed NOT REPORTED Normal [facility] Comment on above: Performed By: #### C DP, LIP #### [facility] [address] [place], [place] [phone] House Father: Zafar Castillo MD Platelets (Bld) [#/Vol] NOT REPORTED Normal [facility] Comment on above: Performed By: #### C DP, LIP #### [facility] [address] [place], [place] [address] House Father: Zafar Castillo MD RBC morphology finding Nom (Bld) NOT REPORTED Normal [facility] Comment on above: Performed By: #### C DP, LIP #### [facility] [address] [place], [facility] House Father: Zafar Castillo MD WBC Morphology NOT REPORTED Normal [facility] Comment on above: Performed By: #### C DP, LIP #### [facility] [address] [place], [facility] House Father: Zafar Castillo MD Comp Metabolic Pr/rfx MGon 0 03-26-2020 (cont.) Normal [facility] Comment on above: Result Comment: Aver age GFR for 50-59 years old: 93 mL/min/1.73sq m Chronic Kidney Disease: <60 mL/min/1.73sq m Kidney failure: <15 mL/min/1.73sq m eGFR calculated using average adult body mass. Additional eGFR calculator available at: http://www.LookUP.com/multiple_crcl_2011.htm Performed By: #### R NAYELYEC, NAT, LIP, CMPX #### [facility] [address] [place] [address] House Father: Ion Jasso MD Albumin [Mass/Vol] 4.3 g/dL Normal 3.5-5.2 [facility] Comment on above: Performed By: #### R NAYELYEC, NAT, LIP, CMPX #### [facility] [address] [place], [facility] House Father: Ion Jasso MD Albumin/Globulin [Mass ratio] 1.7 {ratio} Normal 1.0-2.5 [facility] Comment on above: Performed By: #### R EJEC, NAT, LIP, CMPX #### [facility] [address] [place], [place] [phone] House Father: Ion Jasso MD Alkaline Phos 117 U/L High 35-104 [facility] Comment on above: Performed By: #### R EJEC, NAT, LIP, CMPX #### [facility] [address] [place], [place] [phone] House Father: Ion Jasso MD ALT [Catalytic activity/Vol] 11 U/L Normal 5-33 [facility] Comment on above: Performed By: #### R EJEC, NAT, LIP, CMPX #### [address] [place], [place] [address] House Father: Ion Jasso MD Anion gap [Moles/Vol] 9 mmol/L Normal 9-17 [facility] Comment on above: Performed By: #### R EJEC, NAT, LIP, CMPX #### [address] [place], [place] [phone] House Father: Ion Jasso MD AST [Catalytic activity/Vol] 18 U/L Normal <32 [facility] Comment on above: Performed By: #### R EJEC, NAT, LIP, CMPX #### [facility] [address] [place] [address] Dr. [place], [place] [phone] House Father: Ion Jasso MD Bilirubin Ql (U) 0.15 mg/dL Low 0.3-1.2 [facility] Comment on above: Performed By: #### R EJEC, NAT, LIP, CMPX #### [facility] [address] [place] [address] Dr. [place], [place] [phone] House Father: Ion Jasso MD BUN/CRE Ratio 12 Normal 9-20 [facility] Comment on above: Performed By: #### R EJEC, NAT, LIP, CMPX #### [facility] [address] [place], [place] [phone] House Father: Ion Jasso MD Calcium [Mass/Vol] 9.7 mg/dL Normal 8.6-10.4 [facility] Comment on above: Performed By: #### R EJEC, NAT, LIP, CMPX #### [facility] [address] [place], [place] 9465083 House Father: Ion Jasso MD Chloride [Moles/Vol] 102 mmol/L Normal 98-107 [facility] Comment on above: Performed By: #### R EJEC, NAT, LIP, CMPX #### [facility] [address] [place] [address] Dr. [place], [place] [phone] House Father: Ion Jasso MD CO2 [Moles/Vol] 25 mmol/L Normal 20-31 [facility] Comment on above: Performed By: #### R EJEC, NAT, LIP, CMPX #### [facility] [address] [place] [address] Dr. [place], [place] [phone] House Father: Ion Jasso MD Creatinine [Mass/Vol] 0.74 mg/dL Normal 0.50-0.90 [facility] Comment on above: Performed By: #### R EJEC, NAT, LIP, CMPX #### [facility] [address] [place], [place] [phone] House Father: Ion Jasso MD GFR, Amer >60 Normal >60 [facility] Comment on above: Performed By: #### R EJEC, NAT, LIP, CMPX #### [facility] [address] [place] [address] House Father: Ion Jasso MD GFR,non Amer >60 Normal >60 [facility] Comment on above: Performed By: #### R EJEC, NAT, LIP, CMPX #### [facility] [address] [place], [place] [phone] House Father: Ion Jasso MD Glucose [Mass/Vol] 94 mg/dL Normal 70-99 [facility] Comment on above: Performed By: #### R EJEC, NAT, LIP, CMPX #### [facility] [address] [place], [place] [phone] House Father: Ion Jasso MD Potassium [Moles/Vol] 4.2 mmol/L Normal 3.7-5.3 [facility] Comment on above: Performed By: #### R EJEC, NAT, LIP, CMPX #### [address] [place], [place] [phone] House Father: Ion Jasso MD Protein [Mass/Vol] 6.8 g/dL Normal 6.4-8.3 [facility] Comment on above: Performed By: #### R EJEC, NAT, LIP, CMPX #### [address] [place], [place] [phone] House Father: Ion Jasso MD Sodium [Moles/Vol] 136 mmol/L Normal 135-144 [facility] Comment on above: Performed By: #### R EJEC, NAT, LIP, CMPX #### [address] [place], [place] 6235783 House Father: Ion Jasso MD Staging: Normal [facility] Comment on above: Result Comment: Stag e 1: Some kidney damage normal GFR Stage 2: Mild kidney damage GFR 60-89 Stage 3: Moderate kidney damage GFR 30-59 Stage 4: Severe kidney damage GFR 15-29 Stage 5: Severe kidney damage GFR <15 ESRD - chronic treatment by dialysis or transplant Performed By: #### R EJEC, NAT, LIP, CMPX #### [address] [place] [address] House Father: Ion Jasso MD Urea nitrogen [Mass/Vol] 9 mg/dL Normal 6-20 [facility] Comment on above: Performed By: #### R ANGELINE, NAT, REBECA, CMPX #### [facility] [address] [place] [address] House Father: Ion Jasso MD Comprehensive Metabolic Pane l w/ Reflex to MGon 03-26-2020 Albumin [Mass/Vol] 4.3 g/dL 3.5 - 5.2 g/dL [place] Albumin/Globulin [Mass ratio] 1.7 {ratio} [place] ALP [Catalytic activity/Vol] 117 U/L High 35 - 104 U/L [place] ALT [Catalytic activity/Vol] 11 U/L 5 - 33 U/L [place] Anion gap [Moles/Vol] 9 mmol/L 9 - 17 mmol/L [place] AST [Catalytic activity/Vol] 18 U/L <32 [place] Bilirubin Ql (U) 0.15 mg/dL Low 0.3 - 1.2 mg/dL [place] Bun/Cre Ratio 12 [place] Calcium [Mass/Vol] 9.7 mg/dL 8.6 - 10. 4 mg/dL [place] Chloride [Moles/Vol] 102 mmol/L 98 - 10 7 mmol/L [place] CO2 [Moles/Vol] 25 mmol/L 20 - 31 mmol/L [place] Creatinine [Mass/Vol] 0.74 mg/dL 0.5 - 0.9 mg/dL [place] GFR >60 >60 mL/min [place] GFR Non- >60 >60 mL/min [place] Glucose [Mass/Vol] 94 mg/dL 70 - 99 mg/dL [place] Potassium [Moles/Vol] 4.2 mmol/L 3.7 - 5.3 mmol/L [place] Protein [Mass/Vol] 6.8 g/dL 6.4 - 8.3 g/dL [place] Sodium [Moles/Vol] 136 mmol/L 135 - 144 mmol/L [place] Urea nitrogen [Mass/Vol] 9 mg/dL 6 - 20 mg/dL [place] Lactic Acidon 03-26-2020 Lactate [Moles/Vol] 1.3 mmol/L Normal 0.5-2.2 [facility] Comment on above: Performed By: #### C DP, LIP #### [facility] [address] [place] [address] House Father: Zafar Castillo MD Lactate [Moles/Vol] 1.3 mmol/L 0.5 - 2. 2 mmol/L [place] Lipaseon 03-26-2020 Lipase [Catalytic activity/Vol] 225 U/L Critically high 13-60 [facility] Comment on above: Performed By: #### R EJEC, NAT, LIP, CMPX #### [facility] [address] [place] [address] House Father: Ion Jasso MD Interpretation and review of laboratory results Abnormal [place] Lipase [Catalytic activity/Vol] 225 U/L Critically high 13 - 60 U/L [place] Metabolic Panelon 03-26-2020 GFR/1.73 sq M predicted among non-blacks MDRD (S/P/Bld) [Vol rate/Area] [place] Comment on above: Average GFR for 50-5 9 years old: 93 mL/min/1.73sq m Chronic Kidney Disease: <60 mL/min/1.73sq m Kidney failure: <15 mL/min/1.73sq m eGFR calculated using average adult body mass. Additional eGFR calculator available at: http://www.GazeHawk/multiple_crcl_2012.htm Stage 1: Some kidney damage normal GFR Stage 2: Mild kidney damage GFR 60-89 Stage 3: Moderate kidney damage GFR 30-59 Stage 4: Severe kidney damage GFR 15-29 Stage 5: Severe kidney damage GFR <15 ESRD - chronic treatment by dialysis or transplant Otheron 03-26-2020 Interpretation and review of laboratory results Abnormal [place] SPECIMEN REJECTIONon 021 Ordered Test CDP [place], [place] Reason for Rejection Unable to perform testing: Specimen clotted. [place] Specimen source Nom (Unsp spec) .BLOOD [place] - NOT REPORTED [place] Specimen Rejectionon 021 Reason for rejection Unable to perform testing: Specimen clotted. Normal [facility] Comment on above: Performed By: #### R EJEC, NAT, LIP, CMPX #### [facility] [address] [place] [address] Dr[address] [place], [place] [phone] House Father: Ion Jasso MD Source of sample .BLOOD Normal [facility] Comment on above: Performed By: #### R EJEC, NAT, LIP, CMPX #### [facility] [address] [place] [address] [place] [address] House Father: Ion Jasso MD Test ordered [facility] Comment on above: Performed By: #### R EJEC, NAT, LIP, CMPX #### [address] [place] [address] House Father: Ion Jasso MD ----- NOT REPORTED [facility] Comment on above: Performed By: #### R EJEC, NAT, LIP, CMPX #### [facility] [address] [place] [address] House Father: Ion Jasso MD Urinalysis, Routineon 2020 Acetoacetic Acid,Ur Negative [place] NEG [facility] Comment on above: Performed By: #### C DP, LIP #### [facility] [address] [place] [address] Dr[place], [place] [phone] House Father: Zafar Castillo MD Bilirubin, SemiQt,Ur Negative Normal [facility] Comment on above: Performed By: #### C DP, LIP #### [facility] [address] [place] [address] House Father: Zafar Castillo MD Color (U) YELLOW Normal YEL [facility] Comment on above: Performed By: #### C DP, LIP #### [facility] [address] [place] [address] House Father: Zafar Castillo MD Glucose Ql (U) Negative Normal NEG [facility] Hospital Comment on above: Performed By: #### C DP, LIP #### [facility] [address] [place] [address] House Father: Zafar Castillo MD Hemoglobin, Ur Negative Normal NEG [facility] Comment on above: Performed By: #### C DP, LIP #### [facility] [address] [place], [facility] House Father: Zafar Castillo MD Leukocyte esterase Test strip Ql (U) Negative Normal [facility] Comment on above: Performed By: #### C DP, LIP #### [address] [place] [address] House Father: Zafar Castillo MD Nitrite,Ur Negative Normal [facility] Comment on above: Performed By: #### C DP, LIP #### [facility] [address] [place] [address] House Father: Zafar Castillo MD pH (U) 5.5 [pH] Normal 5.0-9.0 [facility] Comment on above: Performed By: #### C DP, LIP #### [facility] [address] [place] [address] House Father: Zafar Castillo MD Protein Ql (U) Negative Normal NEG [facility] Hospital Comment on above: Performed By: #### C DP, LIP #### [facility] [address] [place] [phone] House Father: Zafar Castillo MD Specific gravity (U) [Rel density] 1.010 Normal 1.010-1.020 [facility] Comment on above: Performed By: #### C DP, LIP #### [facility] [address] [place], [place] [phone] House Father: Zafar Castillo MD Turbidity CLEAR Normal CLEAR [facility] Comment on above: Performed By: #### C DP, LIP #### [facility] [address] [place], [place] 3259383 House Father: Zafar Castillo MD Urobilinogen,Ur Normal Normal NORM [facility] Comment on above: Performed By: #### C DP, LIP #### [facility] [address] [place], [place] [phone] House Father: Zafar Castillo MD Comment NOT REPORTED Normal [facility] Comment on above: Performed By: #### C DP, LIP #### [facility] [address] [place], [place] [phone] House Father: Zafar Castillo MD Urinalysis, reflex to micros copicon 03-26-2020 Bilirubin Urine Negative [facility] [place] Color, UA YELLOW YELLOW [facility], [place] Glucose, Ur Negative NEGATIVE [facility], [place] Ketones Ql (U) Negative NEGATIVE [facility] [place] Leukocyte esterase Test strip Ql (U) Negative NEGATIVE [facility] [place] Nitrite, Urine Negative NEGATIVE [facility] [place] pH, UA 5.5 [facility] [place], [place] Protein (U) [Mass/Vol] Negative NEGATIVE [facility] [place] Specific [place], UA 1.010 [facility] Turbidity UA CLEAR CLEAR [facility], [place] Urinalysis Comments NOT REPORTED [facility] Urine Hgb Negative NEGATIVE [facility] Urobilinogen, Urine Normal Normal [facility], [place] CBC auto differentialon 06-1 8-2020 Basophils (Bld) [#/Vol] 0.04 10*3/uL [place] Basophils/100 WBC (Bld) 1 % 0 - 2 % [place] Differential Type NOT REPORTED [place] Eosinophils (Bld) [#/Vol] 0.10 10*3/uL [place] Eosinophils/100 WBC (Bld) 1 % 1 - 4 % [place] Erythrocyte distribution width (RBC) [Ratio] 13.0 % 11.8 - 14.4 % [place] Hematocrit (Bld) [Volume fraction] 35.2 % Low 36.3 - 47.1 % [place] Hemoglobin (Bld) [Mass/Vol] 11.7 g/dL Low 11.9 - 15.1 g/dL [place] Immature granulocytes (Bld) [#/Vol] 10*3/uL [place] Immature granulocytes (Bld) [#/Vol] 0 % 0 [place] Interpretation and review of laboratory results Abnormal [place] Lymphocytes (Bld) [#/Vol] 1.87 10*3/uL [place] Lymphocytes/100 WBC (Bld) 22 % Low 24 - 43 % [place] MCH (RBC) [Entitic mass] 32.5 pg 25.2 - 33.5 pg [place] MCHC (RBC) [Mass/Vol] 33.2 g/dL 28.4 - 34.8 g/dL [place] MCV (RBC) [Entitic vol] 97.8 fL 82.6 - 102.9 fL [place] Monocytes (Bld) [#/Vol] 0.86 10*3/uL [place] Monocytes/100 WBC (Bld) 10 % 3 - 12 % [place] Platelet mean volume (Bld) [Entitic vol] 9.8 fL 8.1 - 13.5 fL [place], [place] Platelets (Bld) [#/Vol] 178 10*3/uL [place], [place] RBC (Bld) [#/Vol] 3.60 10*6/uL Low 3.95 - 5.1 1 m/uL [place], [place] Segmented neutrophils/100 WBC (Bld) 66 % High 36 - 65 % [place] Segs Absolute 5.53 [place] WBC (Bld) [#/Vol] 0.0 10*3/uL 0.0 per 10 0 WBC [place] WBC (Bld) [#/Vol] 8.4 10*3/uL [place] CBC with Diffon 08-25-2019 Abs. Basophil 0.04 k/uL Normal 0.00-0.20 [facility] Comment on above: Performed By: #### C DP, LIP #### [address] [place] [address] House Father: Zafar Castillo MD Abs.Imm.Granulocyte <0.03 Normal 0.00-0.30 [facility] Comment on above: Performed By: #### C DP, LIP #### [address] [place], [place] [id number] House Father: Zafar Castillo MD Abs.Neutrophil (Seg) 5.53 k/uL Normal 1.50-8.10 [facility] Comment on above: Performed By: #### C DP, LIP #### [address] [place] [address] House Father: Zafar Castillo MD Basophils/100 WBC (Bld) 1 % Normal 0-2 [facility] Comment on above: Performed By: #### C DP, LIP #### [address] [place], [place] [id number] House Father: Zafar Castillo MD Eosinophils (Bld) [#/Vol] 0.10 10*3/uL Normal 0.00-0.44 [facility] Comment on above: Performed By: #### C DP, LIP #### [address] [place], [facility] House Father: Zafar Castillo MD Eosinophils/100 WBC (Bld) 1 % Normal 1-4 [facility] Comment on above: Performed By: #### C DP, LIP #### [facility] [address] [place], [place] [phone] House Father: Zafar Castillo MD Erythrocyte distribution width (RBC) [Ratio] 13.0 % Normal 11.8-14.4 [facility] Comment on above: Performed By: #### C DP, LIP #### [facility] [address] [place], [place] [id number] House Father: Zafar Castillo MD Hematocrit (Bld) [Volume fraction] 35.2 % Low 36.3-47.1 [facility] Comment on above: Performed By: #### C DP, LIP #### [address] [place], [facility] House Father: Zafar Castillo MD Hemoglobin (Bld) [Mass/Vol] 11.7 g/dL Low 11.9-15.1 [facility] Comment on above: Performed By: #### C DP, LIP #### [address] [place] [address] House Father: Zafar Castillo MD Immature granulocytes (Bld) [#/Vol] 0 % Normal 0 [facility] Comment on above: Performed By: #### C DP, LIP #### [facility] [address] [place], [facility] House Father: Zafar Castillo MD Lymphocytes (Bld) [#/Vol] 1.87 10*3/uL Normal 1.10-3.70 [facility] Comment on above: Performed By: #### C DP, LIP #### [facility] [address] [place], [place] [id number] House Father: Zafar Castillo MD Lymphocytes/100 WBC (Bld) 22 % Low 24-43 [facility] Comment on above: Performed By: #### C DP, LIP #### [facility] [address] [place], [place] [phone] House Father: Zafar Castillo MD MCH (RBC) [Entitic mass] 32.5 pg Normal 25.2-33.5 [facility] Comment on above: Performed By: #### C DP, LIP #### [facility] [address] [place], [place] [address] House Father: Zafar Castillo MD MCHC (RBC) [Mass/Vol] 33.2 g/dL Normal 28.4-34.8 [facility] Comment on above: Performed By: #### C DP, LIP #### [facility] [address] [place] [phone] House Father: Zafar Castillo MD MCV (RBC) [Entitic vol] 97.8 fL Normal 82.6-102.9 [facility] Comment on above: Performed By: #### C DP, LIP #### [facility] [address] [place], [facility] House Father: Zafar Castillo MD Monocytes (Bld) [#/Vol] 0.86 10*3/uL Normal 0.10-1.20 [facility] Comment on above: Performed By: #### C DP, LIP #### [facility] [address] [place], [place] [address] House Father: Zafar Castillo MD Monocytes/100 WBC (Bld) 10 % Normal 3-12 [facility] Comment on above: Performed By: #### C DP, LIP #### [facility] [address] [place] [phone] House Father: Zafar Castillo MD Neutrophil (Seg) 66 % High 36-65 [facility] Comment on above: Performed By: #### C DP, LIP #### [facility] [address] [place], [facility] House Father: Zafar Castillo MD NRBC Automated 0.0 per 100 WBC Normal 0.0 [facility] Comment on above: Performed By: #### C DP, LIP #### [facility] [address] [place], [place] [phone] House Father: Zafar Castillo MD Platelet mean volume (Bld) [Entitic vol] 9.8 fL Normal 8.1-13.5 [facility] Comment on above: Performed By: #### C DP, LIP #### [facility] [address] [place] [address] House Father: Zafar Castillo MD Platelets (Bld) [#/Vol] 178 10*3/uL Normal 138-453 [facility] Comment on above: Performed By: #### C DP, LIP #### [address] [place] [phone] House Father: Zafar Castillo MD RBC (Bld) [#/Vol] 3.60 10*6/uL Low 3.95-5.11 [facility] Comment on above: Performed By: #### C DP, LIP #### [address] [place], [place] 3100183 House Father: Zafar Castillo MD WBC (Bld) [#/Vol] 8.4 10*3/uL Normal 3.5-11.3 [facility] Comment on above: Performed By: #### C DP, LIP #### [facility] [address] [place] [place], [place] [phone] House Father: Zafar Castillo MD Auto Diff Performed NOT REPORTED Normal [facility] Comment on above: Performed By: #### C DP, LIP #### [facility] [address] [place] [place], [place] [phone] House Father: Zafar Castillo MD Platelets (Bld) [#/Vol] NOT REPORTED Normal [facility] [place] Comment on above: Performed By: #### C DP, LIP #### [facility] [address] [place] [address] House Father: Zafar Castillo MD RBC morphology finding Nom (Bld) NOT REPORTED Normal [place], [place] Comment on above: Performed By: #### C DP, LIP #### [facility] [address] [place] [address] House Father: Zafar Castillo MD WBC Morphology NOT REPORTED Normal [place], [place] Comment on above: Performed By: #### C DP, LIP #### [facility] [address] [place] [address] House Father: Zafar Castillo MD Lipaseon 08-25-2019 Lipase [Catalytic activity/Vol] 42 U/L Normal 13-60 [facility] Comment on above: Performed By: #### C DP, LIP #### [facility] [address] [place] [address] House Father: Zafar Castillo MD Lipase [Catalytic activity/Vol] 42 U/L 13 - 60 U/L [place] CBC auto differentialon 08-07 Basophils (Bld) [#/Vol] 0.04 10*3/uL [place] Basophils/100 WBC (Bld) 1 % 0 - 2 % [place] Differential Type NOT REPORTED [place] Eosinophils (Bld) [#/Vol] 0.08 10*3/uL [place] Eosinophils/100 WBC (Bld) 1 % 1 - 4 % [place] Erythrocyte distribution width (RBC) [Ratio] 12.9 % 11.8 - 14.4 % [place] Hematocrit (Bld) [Volume fraction] 35.9 % Low 36.3 - 47.1 % [place] Hemoglobin (Bld) [Mass/Vol] 11.9 g/dL 11.9 - 15.1 g/dL [place] Immature granulocytes (Bld) [#/Vol] 0 % 0 [place] Immature granulocytes (Bld) [#/Vol] 0.03 10*3/uL [place] Interpretation and review of laboratory results Abnormal [place] Lymphocytes (Bld) [#/Vol] 1.79 10*3/uL [place] Lymphocytes/100 WBC (Bld) 22 % Low 24 - 43 % [place] MCH (RBC) [Entitic mass] 32.3 pg 25.2 - 33.5 pg [place] MCHC (RBC) [Mass/Vol] 33.1 g/dL 28.4 - 34.8 g/dL [place] MCV (RBC) [Entitic vol] 97.6 fL 82.6 - 102.9 fL [place] Monocytes (Bld) [#/Vol] 0.75 10*3/uL [place] Monocytes/100 WBC (Bld) 9 % 3 - 12 % [place] Platelet mean volume (Bld) [Entitic vol] 10.1 fL 8.1 - 13.5 fL [place] Platelets (Bld) [#/Vol] 176 10*3/uL [place] Platelets (Bld) [#/Vol] NOT REPORTED [place] RBC (Bld) [#/Vol] 3.68 10*6/uL Low 3.95 - 5.1 1 m/uL [place] RBC morphology finding Nom (Bld) NOT REPORTED [place] Segmented neutrophils/100 WBC (Bld) 67 % High 36 - 65 % [place] Segs Absolute 5.61 [place] WBC (Bld) [#/Vol] 0.0 10*3/uL 0.0 per 10 0 WBC [place] WBC (Bld) [#/Vol] 8.3 10*3/uL [place] WBC Morphology NOT REPORTED [place], [place] CBC with Diffon 08-24-2019 Abs. Basophil 0.04 k/uL Normal 0.00-0.20 [facility] Comment on above: Performed By: #### C DP, LIP #### [facility] [address] [place], [place] [address] House Father: Zafar Castillo MD Abs.Imm.Granulocyte 0.03 k/uL Normal 0.00-0.30 [facility] Comment on above: Performed By: #### C DP, LIP #### [facility] [address] [place] [address] House Father: Zafar Castillo MD Abs.Neutrophil (Seg) 5.61 k/uL Normal 1.50-8.10 [facility] Comment on above: Performed By: #### C DP, LIP #### [address] [place] [phone] House Father: Zafar Castillo MD Basophils/100 WBC (Bld) 1 % Normal 0-2 [facility] Comment on above: Performed By: #### C DP, LIP #### [address] [place] [address] House Father: Zafar Castillo MD Eosinophils (Bld) [#/Vol] 0.08 10*3/uL Normal 0.00-0.44 [facility] Comment on above: Performed By: #### C DP, LIP #### [address] [place] [address] House Father: Zafar Castillo MD Eosinophils/100 WBC (Bld) 1 % Normal 1-4 [facility] Comment on above: Performed By: #### C DP, LIP #### [address] [place] [address] House Father: Zafar Castillo MD Erythrocyte distribution width (RBC) [Ratio] 12.9 % Normal 11.8-14.4 [facility] Comment on above: Performed By: #### C DP, LIP #### [address] [place] [phone] House Father: Zafar Castillo MD Hematocrit (Bld) [Volume fraction] 35.9 % Low 36.3-47.1 [facility] Comment on above: Performed By: #### C DP, LIP #### [facility] [address] [place] [facility] House Father: Zafar Castillo MD Hemoglobin (Bld) [Mass/Vol] 11.9 g/dL Normal 11.9-15.1 [facility] Comment on above: Performed By: #### C DP, LIP #### [facility] [address] [place] [phone] House Father: Zafar Castillo MD Immature granulocytes (Bld) [#/Vol] 0 % Normal 0 [facility] Comment on above: Performed By: #### C DP, LIP #### [facility] [address] [place], [facility] House Father: Zafar Castillo MD Lymphocytes (Bld) [#/Vol] 1.79 10*3/uL Normal 1.10-3.70 [facility] Comment on above: Performed By: #### C DP, LIP #### [facility] [address] [place] [address] House Father: Zafar Castillo MD Lymphocytes/100 WBC (Bld) 22 % Low 24-43 [facility] Comment on above: Performed By: #### C DP, LIP #### [facility] [address] [place] [facility] House Father: Zafar Castillo MD MCH (RBC) [Entitic mass] 32.3 pg Normal 25.2-33.5 [facility] Comment on above: Performed By: #### C DP, LIP #### [facility] [address] [place], [facility] House Father: Zafar Castillo MD MCHC (RBC) [Mass/Vol] 33.1 g/dL Normal 28.4-34.8 [facility] Comment on above: Performed By: #### C DP, LIP #### [facility] [address] [place], [place] [phone] House Father: Zafar Castillo MD MCV (RBC) [Entitic vol] 97.6 fL Normal 82.6-102.9 [facility] Comment on above: Performed By: #### C DP, LIP #### [facility] [address] [place], [place] [phone] House Father: Zafar Castillo MD Monocytes (Bld) [#/Vol] 0.75 10*3/uL Normal 0.10-1.20 [facility] Comment on above: Performed By: #### C DP, LIP #### [facility] [address] [place], [place] 7[address]83 House Father: Zafar Castillo MD Monocytes/100 WBC (Bld) 9 % Normal 3-12 [facility] Comment on above: Performed By: #### C DP, LIP #### [facility] [address] [place] [address] House Father: Zafar Castillo MD Neutrophil (Seg) 67 % High 36-65 [facility] Comment on above: Performed By: #### C DP, LIP #### [facility] [address] [place], [place] [address] House Father: Zafar Castillo MD NRBC Automated 0.0 per 100 WBC Normal 0.0 [facility] Comment on above: Performed By: #### C DP, LIP #### [facility] [address] [place], [place] 939[address]83 House Father: Zafar Castillo MD Platelet mean volume (Bld) [Entitic vol] 10.1 fL Normal 8.1-13.5 [facility] Comment on above: Performed By: #### C DP, LIP #### [facility] [address] [place] [address] House Father: Zafar Castillo MD Platelets (Bld) [#/Vol] 176 10*3/uL Normal 138-453 [facility] Comment on above: Performed By: #### C DP, LIP #### [facility] [address] [place], [place] [phone] House Father: Zafar Castillo MD RBC (Bld) [#/Vol] 3.68 10*6/uL Low 3.95-5.11 [facility] Comment on above: Performed By: #### C DP, LIP #### [facility] [address] [place], [place] 104[address]83 House Father: Zafar Castillo MD WBC (Bld) [#/Vol] 8.3 10*3/uL Normal 3.5-11.3 [facility] Comment on above: Performed By: #### C DP, LIP #### [facility] [address] [place] [address] House Father: Zafar Castillo MD Auto Diff Performed NOT REPORTED Normal [facility] Comment on above: Performed By: #### C DP, LIP #### [facility] [address] [place], [place] [phone] House Father: Zafar Castillo MD Platelets (Bld) [#/Vol] NOT REPORTED Normal [facility] Comment on above: Performed By: #### C DP, LIP #### [facility] [address] [place] [address] House Father: Zafar Castillo MD RBC morphology finding Nom (Bld) NOT REPORTED Normal [facility] Comment on above: Performed By: #### C DP, LIP #### [facility] [address] [place], [place] [phone] House Father: Zafar Castillo MD WBC Morphology NOT REPORTED Normal [facility] Comment on above: Performed By: #### C DP, LIP #### [facility] [address] [place] [address] House Father: Zafar Castillo MD Lipaseon 08-24-2019 Lipase [Catalytic activity/Vol] 69 U/L High 13-60 [facility] Comment on above: Performed By: #### C DP, LIP #### [facility] [address] [place] [address] House Father: Zafar Castillo MD Interpretation and review of laboratory results Abnormal [place] Lipase [Catalytic activity/Vol] 69 U/L High 13 - 60 U/L [place] CBC auto differentialon 08-07 Basophils (Bld) [#/Vol] 0.05 10*3/uL [place] Basophils/100 WBC (Bld) 1 % 0 - 2 % [place] Differential Type NOT REPORTED [place] Eosinophils (Bld) [#/Vol] 0.13 10*3/uL [place] Eosinophils/100 WBC (Bld) 2 % 1 - 4 % [place] Erythrocyte distribution width (RBC) [Ratio] 13.2 % 11.8 - 14.4 % [place] Hematocrit (Bld) [Volume fraction] 36.7 % 36.3 - 47.1 % [place] Hemoglobin (Bld) [Mass/Vol] 11.8 g/dL Low 11.9 - 15.1 g/dL [place] Immature granulocytes (Bld) [#/Vol] 0 % 0 [place] Immature granulocytes (Bld) [#/Vol] 10*3/uL [place] Interpretation and review of laboratory results Abnormal [place] Lymphocytes (Bld) [#/Vol] 2.39 10*3/uL [place] Lymphocytes/100 WBC (Bld) 28 % 24 - 43 % [place] MCH (RBC) [Entitic mass] 32.1 pg 25.2 - 33.5 pg [place] MCHC (RBC) [Mass/Vol] 32.2 g/dL 28.4 - 34.8 g/dL [place] MCV (RBC) [Entitic vol] 99.7 fL 82.6 - 102.9 fL [place], [place] Monocytes (Bld) [#/Vol] 0.77 10*3/uL [place] Monocytes/100 WBC (Bld) 9 % 3 - 12 % [place] Platelet mean volume (Bld) [Entitic vol] 10.1 fL 8.1 - 13.5 fL [place] Platelets (Bld) [#/Vol] 174 10*3/uL [place] Platelets (Bld) [#/Vol] NOT REPORTED [place] RBC (Bld) [#/Vol] 3.68 10*6/uL Low 3.95 - 5.1 1 m/uL [place] RBC morphology finding Nom (Bld) NOT REPORTED [place] Segmented neutrophils/100 WBC (Bld) 60 % 36 - 65 % [place] Segs Absolute 5.22 [place] WBC (Bld) [#/Vol] 0.0 10*3/uL 0.0 per 10 0 WBC [place] WBC (Bld) [#/Vol] 8.6 10*3/uL [place] WBC Morphology NOT REPORTED [place], [place] CBC with Diffon 08-23-2019 Abs. Basophil 0.05 k/uL Normal 0.00-0.20 [facility] Comment on above: Performed By: #### C DP, LIP #### [facility] [address] [place] [address] House Father: Zafar Castillo MD Abs.Imm.Granulocyte <0.03 Normal 0.00-0.30 [facility] Comment on above: Performed By: #### C DP, LIP #### [facility] [address] [place] [address] House Father: Zafar Castillo MD Abs.Neutrophil (Seg) 5.22 k/uL Normal 1.50-8.10 [facility] Comment on above: Performed By: #### C DP, LIP #### [facility] [address] [place], [place] [address] House Father: Zafra Castillo MD Basophils/100 WBC (Bld) 1 % Normal 0-2 [facility] Comment on above: Performed By: #### C DP, LIP #### [facility] [address] [place], [place] [address] House Father: Zafar Castillo MD Eosinophils (Bld) [#/Vol] 0.13 10*3/uL Normal 0.00-0.44 [facility] Comment on above: Performed By: #### C DP, LIP #### [address] [place] [address] House Father: Zafar Castillo MD Eosinophils/100 WBC (Bld) 2 % Normal 1-4 [facility] Comment on above: Performed By: #### C DP, LIP #### [address] [place], [place] [address] House Father: Zafar Castillo MD Erythrocyte distribution width (RBC) [Ratio] 13.2 % Normal 11.8-14.4 [facility] Comment on above: Performed By: #### C DP, LIP #### [address] [place], [place] [address] House Father: Zafar Castillo MD Hematocrit (Bld) [Volume fraction] 36.7 % Normal 36.3-47.1 [facility] Comment on above: Performed By: #### C DP, LIP #### [address] [place], [facility] House Father: Zafar Castillo MD Hemoglobin (Bld) [Mass/Vol] 11.8 g/dL Low 11.9-15.1 [facility] Comment on above: Performed By: #### C DP, LIP #### [facility] [address] [place], [place] [phone] House Father: Zafar Castillo MD Immature granulocytes (Bld) [#/Vol] 0 % Normal 0 [facility] Comment on above: Performed By: #### C DP, LIP #### [facility] [address] [place] [facility] House Father: Zafar Castillo MD Lymphocytes (Bld) [#/Vol] 2.39 10*3/uL Normal 1.10-3.70 [facility] Comment on above: Performed By: #### C DP, LIP #### [facility] [address] [place], [facility] House Father: Zafar Castillo MD Lymphocytes/100 WBC (Bld) 28 % Normal 24-43 [facility] Comment on above: Performed By: #### C DP, LIP #### [facility] [address] [place], [facility] House Father: Zafar Castillo MD MCH (RBC) [Entitic mass] 32.1 pg Normal 25.2-33.5 [facility] Comment on above: Performed By: #### C DP, LIP #### [address] [place] [phone] House Father: Zafar Castillo MD MCHC (RBC) [Mass/Vol] 32.2 g/dL Normal 28.4-34.8 [facility] Comment on above: Performed By: #### C DP, LIP #### [facility] [address] [place] [address] House Father: Zafar Castillo MD MCV (RBC) [Entitic vol] 99.7 fL Normal 82.6-102.9 [facility] Comment on above: Performed By: #### C DP, LIP #### [facility] [address] [place], [facility] House Father: Zafar Castillo MD Monocytes (Bld) [#/Vol] 0.77 10*3/uL Normal 0.10-1.20 [facility] Comment on above: Performed By: #### C DP, LIP #### [facility] [address] [place] [address] House Father: Zafar Castillo MD Monocytes/100 WBC (Bld) 9 % Normal 3-12 [facility] Comment on above: Performed By: #### C DP, LIP #### [facility] [address] [place], [place] [phone] House Father: Zafar Castillo MD Neutrophil (Seg) 60 % Normal 36-65 [facility] Comment on above: Performed By: #### C DP, LIP #### [facility] [address] [place] [address] House Father: Zafar Castillo MD NRBC Automated 0.0 per 100 WBC Normal 0.0 [facility] Comment on above: Performed By: #### C DP, LIP #### [facility] [address] [place], [place] [phone] House Father: Zafar Castillo MD Platelet mean volume (Bld) [Entitic vol] 10.1 fL Normal 8.1-13.5 [facility] Comment on above: Performed By: #### C DP, LIP #### [facility] [address] [place], [place] 9[address]83 House Father: Zafar Castillo MD Platelets (Bld) [#/Vol] 174 10*3/uL Normal 138-453 [facility] Comment on above: Performed By: #### C DP, LIP #### [facility] [address] [place] [address] House Father: Zafar Castillo MD RBC (Bld) [#/Vol] 3.68 10*6/uL Low 3.95-5.11 [facility] Comment on above: Performed By: #### C DP, LIP #### [facility] [address] [place], [place] [id number] House Father: Zafar Castillo MD WBC (Bld) [#/Vol] 8.6 10*3/uL Normal 3.5-11.3 [facility] Comment on above: Performed By: #### C DP, LIP #### [facility] [address] [place], [place] [phone] House Father: Zafar Castillo MD Auto Diff Performed NOT REPORTED Normal [facility] Comment on above: Performed By: #### C DP, LIP #### [facility] [address] [place], [place] [id number] House Father: Zafar Castillo MD Platelets (Bld) [#/Vol] NOT REPORTED Normal [facility] Comment on above: Performed By: #### C DP, LIP #### [facility] [address] [place], [place] [phone] House Father: Zafar Castillo MD RBC morphology finding Nom (Bld) NOT REPORTED Normal [facility] Comment on above: Performed By: #### C DP, LIP #### [facility] [address] [place], [place] [phone] House Father: Zafar Castillo MD WBC Morphology NOT REPORTED Normal [facility] Comment on above: Performed By: #### C DP, LIP #### [facility] [address] [place], [place] [phone] House Father: Zafar Castillo MD Comp Metabolic Profon 2019 (cont.) Normal [facility] Comment on above: Result Comment: Aver age GFR for 50-59 years old: 93 mL/min/1.73sq m Chronic Kidney Disease: <60 mL/min/1.73sq m Kidney failure: <15 mL/min/1.73sq m eGFR calculated using average adult body mass. Additional eGFR calculator available at: http://www.globalrp.com/multiple_crcl_2011.htm Performed By: #### C DP, LIP #### [facility] [address] [place], [place] [id number] House Father: Zafar Castillo MD Albumin [Mass/Vol] 3.4 g/dL Low 3.5-5.2 [facility] Comment on above: Performed By: #### C DP, LIP #### [facility] [address] [place], [place] [id number] House Father: Zafar Castillo MD Albumin/Globulin [Mass ratio] 1.7 {ratio} Normal 1.0-2.5 [facility] Comment on above: Performed By: #### C DP, LIP #### [facility] [address] [place], [place] [id number] House Father: Zafar Castillo MD Alkaline Phos 102 U/L Normal 35-104 [facility] Comment on above: Performed By: #### C DP, LIP #### [facility] [address] [place], [place] [id number] House Father: Zafar Castillo MD ALT [Catalytic activity/Vol] 34 U/L High 5-33 [facility] Comment on above: Performed By: #### C DP, LIP #### [facility] [address] [place] [address] House Father: Zafar Castillo MD Anion gap [Moles/Vol] 7 mmol/L Low 9-17 [facility] Comment on above: Performed By: #### C DP, LIP #### [facility] [address] [place] [address] House Father: Zafar Castillo MD AST [Catalytic activity/Vol] 95 U/L High <32 [facility] Comment on above: Performed By: #### C DP, LIP #### [facility] [address] [place], [place] [id number] House Father: Zafar Castillo MD Bilirubin Ql (U) 0.46 mg/dL Normal 0.3-1.2 [facility] Comment on above: Performed By: #### C DP, LIP #### [facility] [address] [place] [address] House Father: Zafar Castillo MD BUN/CRE Ratio 11 Normal 9-20 [facility] Comment on above: Performed By: #### C DP, LIP #### [facility] [address] [place] [address] House Father: Zafar Castillo MD Calcium [Mass/Vol] 8.4 mg/dL Low 8.6-10.4 [facility] Comment on above: Performed By: #### C DP, LIP #### [facility] [address] [place] [address] House Father: Zafar Castillo MD Chloride [Moles/Vol] 109 mmol/L High 98-107 [facility] Comment on above: Performed By: #### C DP, LIP #### [facility] [address] [place], [place] [id number] House Father: Zafar Castillo MD CO2 [Moles/Vol] 22 mmol/L Normal 20-31 [facility] Comment on above: Performed By: #### C DP, LIP #### [facility] [address] [place] [address] House Father: Zafar Castillo MD Creatinine [Mass/Vol] 0.66 mg/dL Normal 0.50-0.90 [facility] Comment on above: Performed By: #### C DP, LIP #### [facility] [address] [place] [address] House Father: Zafar Castillo MD GFR, Amer >60 Normal >60 [facility] Comment on above: Performed By: #### C DP, LIP #### [facility] [address] [place], [place] [address] House Father: Zafar Castillo MD GFR,non Amer >60 Normal >60 [facility] Comment on above: Performed By: #### C DP, LIP #### [facility] [address] [place], [place] [id number] House Father: Zafar Castillo MD Glucose [Mass/Vol] 89 mg/dL Normal 70-99 [facility] Comment on above: Performed By: #### C DP, LIP #### [facility] [address] [place], [place] [phone] House Father: Zafar Castillo MD Potassium [Moles/Vol] 4.3 mmol/L Normal 3.7-5.3 [facility] Comment on above: Performed By: #### C DP, LIP #### [facility] [address] [place], [place] [phone] House Father: Zafar Castillo MD Protein [Mass/Vol] 5.4 g/dL Low 6.4-8.3 [facility] Comment on above: Performed By: #### C DP, LIP #### [address] [place], [place] [address] House Father: Zafar Castillo MD Sodium [Moles/Vol] 138 mmol/L Normal 135-144 [facility] Comment on above: Performed By: #### C DP, LIP #### [facility] [address] [place], [place] [phone] House Father: Zafar Castillo MD Staging: Normal [facility] Comment on above: Result Comment: Stag e 1: Some kidney damage normal GFR Stage 2: Mild kidney damage GFR 60-89 Stage 3: Moderate kidney damage GFR 30-59 Stage 4: Severe kidney damage GFR 15-29 Stage 5: Severe kidney damage GFR <15 ESRD - chronic treatment by dialysis or transplant Performed By: #### C DP, LIP #### [facility] [address] [place] [address] House Father: Zafar Castillo MD Urea nitrogen [Mass/Vol] 7 mg/dL Normal 6-20 [facility] Comment on above: Performed By: #### C DP, LIP #### [facility] [address] [place] [address] House Father: Zafar Castillo MD Comprehensive metabolic pane nimesh 08-23-2019 Albumin [Mass/Vol] 3.4 g/dL Low 3.5 - 5.2 g/dL [place] Albumin/Globulin [Mass ratio] 1.7 {ratio} [place] ALP [Catalytic activity/Vol] 102 U/L 35 - 104 U/L [place] ALT [Catalytic activity/Vol] 34 U/L High 5 - 33 U/L [place] Anion gap [Moles/Vol] 7 mmol/L Low 9 - 17 mmol/L [place] AST [Catalytic activity/Vol] 95 U/L High <32 [place] Bilirubin Ql (U) 0.46 mg/dL 0.3 - 1.2 mg/dL [place] Bun/Cre Ratio 11 [place] Calcium [Mass/Vol] 8.4 mg/dL Low 8.6 - 10. 4 mg/dL [place] Chloride [Moles/Vol] 109 mmol/L High 98 - 10 7 mmol/L [place] CO2 [Moles/Vol] 22 mmol/L 20 - 31 mmol/L [place] Creatinine [Mass/Vol] 0.66 mg/dL 0.5 - 0.9 mg/dL [place] GFR >60 >60 mL/min [place] GFR Non- >60 >60 mL/min [place] Glucose [Mass/Vol] 89 mg/dL 70 - 99 mg/dL [place] Potassium [Moles/Vol] 4.3 mmol/L 3.7 - 5.3 mmol/L [place] Protein [Mass/Vol] 5.4 g/dL Low 6.4 - 8.3 g/dL [place] Sodium [Moles/Vol] 138 mmol/L 135 - 144 mmol/L [place] Urea nitrogen [Mass/Vol] 7 mg/dL 6 - 20 mg/dL [place] Lipaseon 08-23-2019 Lipase [Catalytic activity/Vol] 96 U/L High 13-60 [facility] Comment on above: Performed By: #### C DP, LIP #### [facility] [address] [place] [address] House Father: Zafar Castillo MD Lipase [Catalytic activity/Vol] 96 U/L High 13 - 60 U/L [place] Metabolic Panelon 08-23-2019 GFR/1.73 sq M predicted among non-blacks MDRD (S/P/Bld) [Vol rate/Area] [place] Comment on above: Stage 1: Some [...] body mass. Additional eGFR calculator available at: http://www.LookUP.[employer]/multiple_crcl_2011.htm Otheron 08-23-2019 Interpretation and review of laboratory results Abnormal [place] CBC Auto Differentialon 08-07 Basophils (Bld) [#/Vol] 0.06 10*3/uL [place] Basophils/100 WBC (Bld) 1 % 0 - 2 % [place] Differential Type NOT REPORTED [place] Eosinophils (Bld) [#/Vol] 0.11 10*3/uL [place] Eosinophils/100 WBC (Bld) 1 % 1 - 4 % [place] Erythrocyte distribution width (RBC) [Ratio] 13.2 % 11.8 - 14.4 % [place] Hematocrit (Bld) [Volume fraction] 41.8 % 36.3 - 47.1 % [place] Hemoglobin (Bld) [Mass/Vol] 13.7 g/dL 11.9 - 15.1 g/dL [place] Immature granulocytes (Bld) [#/Vol] 0.03 10*3/uL [place] Immature granulocytes (Bld) [#/Vol] 0 % 0 [place] Interpretation and review of laboratory results Abnormal [place] Lymphocytes (Bld) [#/Vol] 2.23 10*3/uL [place] Lymphocytes/100 WBC (Bld) 24 % 24 - 43 % [place] MCH (RBC) [Entitic mass] 32.6 pg 25.2 - 33.5 pg [place] MCHC (RBC) [Mass/Vol] 32.8 g/dL 28.4 - 34.8 g/dL [place] MCV (RBC) [Entitic vol] 99.5 fL 82.6 - 102.9 fL [place] Monocytes (Bld) [#/Vol] 0.72 10*3/uL [place] Monocytes/100 WBC (Bld) 8 % 3 - 12 % [place] Platelet mean volume (Bld) [Entitic vol] 10.0 fL 8.1 - 13.5 fL [place] Platelets (Bld) [#/Vol] NOT REPORTED [place] Platelets (Bld) [#/Vol] 213 10*3/uL [place] RBC (Bld) [#/Vol] 4.20 10*6/uL 3.95 - 5.1 1 m/uL [place] RBC morphology finding Nom (Bld) NOT REPORTED [place] Segmented neutrophils/100 WBC (Bld) 66 % High 36 - 65 % [place] Segs Absolute 6.22 [place] WBC (Bld) [#/Vol] 0.0 10*3/uL 0.0 per 10 0 WBC [place] WBC (Bld) [#/Vol] 9.4 10*3/uL [place] WBC Morphology NOT REPORTED [place], [place] CBC with Diffon 08-22-2019 Abs. Basophil 0.06 k/uL Normal 0.00-0.20 [facility] Comment on above: Performed By: #### C P, CDP, LIP #### [facility] [address] [place] [address] House Father: Zafar Castillo MD Abs.Imm.Granulocyte 0.03 k/uL Normal 0.00-0.30 [facility] Comment on above: Performed By: #### C P, CDP, LIP #### [address] [place] [address] House Father: Zafar Castillo MD Abs.Neutrophil (Seg) 6.22 k/uL Normal 1.50-8.10 [facility] Comment on above: Performed By: #### C P, CDP, LIP #### [address] [place] [address] House Father: Zafar Castillo MD Basophils/100 WBC (Bld) 1 % Normal 0-2 [facility] Comment on above: Performed By: #### C P, CDP, LIP #### [address] [place] [address] House Father: Zafar Castillo MD Eosinophils (Bld) [#/Vol] 0.11 10*3/uL Normal 0.00-0.44 [facility] Comment on above: Performed By: #### C P, CDP, LIP #### [address] [place] [phone] House Father: Zafar Castillo MD Eosinophils/100 WBC (Bld) 1 % Normal 1-4 [facility] Comment on above: Performed By: #### C P, CDP, LIP #### [facility] [address] [place], [facility] House Father: Zafar Castillo MD Erythrocyte distribution width (RBC) [Ratio] 13.2 % Normal 11.8-14.4 [facility] Comment on above: Performed By: #### C P, CDP, LIP #### [facility] [address] [place], [place] [address] House Father: Zafar Castillo MD Hematocrit (Bld) [Volume fraction] 41.8 % Normal 36.3-47.1 [facility] Comment on above: Performed By: #### C P, CDP, LIP #### [address] [place] [address] House Father: Zafar Castillo MD Hemoglobin (Bld) [Mass/Vol] 13.7 g/dL Normal 11.9-15.1 [facility] Comment on above: Performed By: #### C P, CDP, LIP #### [address] [place] [address] House Father: Zafar Castillo MD Immature granulocytes (Bld) [#/Vol] 0 % Normal 0 [facility] Comment on above: Performed By: #### C P, CDP, LIP #### [address] [place] [phone] House Father: Zafar Castillo MD Lymphocytes (Bld) [#/Vol] 2.23 10*3/uL Normal 1.10-3.70 [facility] Comment on above: Performed By: #### C P, CDP, LIP #### [facility] [address] [place] [phone] House Father: Zafar Castillo MD Lymphocytes/100 WBC (Bld) 24 % Normal 24-43 [facility] Comment on above: Performed By: #### C P, CDP, LIP #### [address] [place] [address] House Father: Zafar Castillo MD MCH (RBC) [Entitic mass] 32.6 pg Normal 25.2-33.5 [facility] Comment on above: Performed By: #### C P, CDP, LIP #### [facility] [address] [place] [facility] House Father: Zafar Castillo MD MCHC (RBC) [Mass/Vol] 32.8 g/dL Normal 28.4-34.8 [facility] Comment on above: Performed By: #### C P, CDP, LIP #### [facility] [address] [place] [address] House Father: Zafar Castillo MD MCV (RBC) [Entitic vol] 99.5 fL Normal 82.6-102.9 [facility] Comment on above: Performed By: #### C P, CDP, LIP #### [facility] [address] [place] [phone] House Father: Zafar Castillo MD Monocytes (Bld) [#/Vol] 0.72 10*3/uL Normal 0.10-1.20 [facility] Comment on above: Performed By: #### C P, CDP, LIP #### [facility] [address] [place] [address] House Father: Zafar Castillo MD Monocytes/100 WBC (Bld) 8 % Normal 3-12 [facility] Comment on above: Performed By: #### C P, CDP, LIP #### [facility] [address] [place], [facility] House Father: Zafar Castillo MD Neutrophil (Seg) 66 % High 36-65 [facility] Comment on above: Performed By: #### C P, CDP, LIP #### [facility] [address] [place] [facility] House Father: Zafar Castillo MD NRBC Automated 0.0 per 100 WBC Normal 0.0 [facility] Comment on above: Performed By: #### C P, CDP, LIP #### [facility] [address] [place], [place] [address] House Father: Zafar Castillo MD Platelet mean volume (Bld) [Entitic vol] 10.0 fL Normal 8.1-13.5 [facility] Comment on above: Performed By: #### C P, CDP, LIP #### [facility] [address] [place], [facility] House Father: Zafar Castillo MD Platelets (Bld) [#/Vol] 213 10*3/uL Normal 138-453 [facility] Comment on above: Performed By: #### C P, CDP, LIP #### [address] [place], [facility] House Father: Zafar Castillo MD RBC (Bld) [#/Vol] 4.20 10*6/uL Normal 3.95-5.11 [facility] Comment on above: Performed By: #### C P, CDP, LIP #### [address] [place], [facility] House Father: Zafar Castillo MD WBC (Bld) [#/Vol] 9.4 10*3/uL Normal 3.5-11.3 [facility] Comment on above: Performed By: #### C P, CDP, LIP #### [facility] [address] [place], [place] [phone] House Father: Zafar Castillo MD Auto Diff Performed NOT REPORTED Normal [facility] Comment on above: Performed By: #### C P, CDP, LIP #### [facility] [address] [place], [place] [phone] House Father: Zafar Castillo MD Platelets (Bld) [#/Vol] NOT REPORTED Normal [facility] Comment on above: Performed By: #### C P, CDP, LIP #### [facility] [address] [place], [place] [id number] House Father: Zafar Castillo MD RBC morphology finding Nom (Bld) NOT REPORTED Normal [facility] Comment on above: Performed By: #### C P, CDP, LIP #### [facility] [address] [place], [place] [phone] House Father: Zafar Castillo MD WBC Morphology NOT REPORTED Normal [facility] Comment on above: Performed By: #### C P, CDP, LIP #### [facility] [address] [place] [address] House Father: Zafar Castillo MD Comp Metabolic Profon 2019 Bilirubin Ql (U) <0.10 Low 0.3-1.2 [facility] Comment on above: Performed By: #### C DP, LIP #### [facility] [address] [place], [facility] House Father: Zafar Castillo MD (cont.) Normal [facility] Comment on above: Result Comment: Aver age GFR for 50-59 years old: 93 mL/min/1.73sq m Chronic Kidney Disease: <60 mL/min/1.73sq m Kidney failure: <15 mL/min/1.73sq m eGFR calculated using average adult body mass. Additional eGFR calculator available at: http://www.[employer]UP.[employer]/multiple_crcl_2012.htm Performed By: #### C DP, LIP #### [facility] [address] [place], [place] [address] House Father: Zafar Castillo MD Albumin [Mass/Vol] 4.1 g/dL Normal 3.5-5.2 [facility] Comment on above: Performed By: #### C DP, LIP #### [facility] [address] [place] [address] House Father: Zafar Castillo MD Albumin/Globulin [Mass ratio] 1.6 {ratio} Normal 1.0-2.5 [facility] Comment on above: Performed By: #### C DP, LIP #### [facility] [address] [place], [place] [id number] House Father: Zafar Castillo MD Alkaline Phos 109 U/L High 35-104 [facility] Comment on above: Performed By: #### C DP, LIP #### [facility] [address] [place], [place] [address] House Father: Zafar Castillo MD ALT [Catalytic activity/Vol] 13 U/L Normal 5-33 [facility] Comment on above: Performed By: #### C DP, LIP #### [facility] [address] [place], [place] [address]797183 House Father: Zafar Castillo MD Anion gap [Moles/Vol] 9 mmol/L Normal 9-17 [facility] Comment on above: Performed By: #### C DP, LIP #### [facility] [address] [place] [address] House Father: Zafar Castillo MD AST [Catalytic activity/Vol] 22 U/L Normal <32 [facility] Comment on above: Performed By: #### C DP, LIP #### [facility] [address] [place], [place] [address] House Father: Zafar Castillo MD BUN/CRE Ratio 13 Normal 9-20 [facility] Comment on above: Performed By: #### C DP, LIP #### [facility] [address] [place], [place] [address]83 House Father: Zafar Castillo MD Calcium [Mass/Vol] 9.2 mg/dL Normal 8.6-10.4 [facility] Comment on above: Performed By: #### C DP, LIP #### [facility] [address] [place] [address] House Father: Zafar Castillo MD Chloride [Moles/Vol] 103 mmol/L Normal 98-107 [facility] Comment on above: Performed By: #### C DP, LIP #### [facility] [address] [place] [address] House Father: Zafar Castillo MD CO2 [Moles/Vol] 24 mmol/L Normal 20-31 [facility] Comment on above: Performed By: #### C DP, LIP #### [facility] [address] [place] [address] House Father: Zafar Castillo MD Creatinine [Mass/Vol] 0.63 mg/dL Normal 0.50-0.90 [facility] Comment on above: Performed By: #### C DP, LIP #### [facility] [address] [place] [address] House Father: Zafar Castillo MD GFR, Amer >60 Normal >60 [facility] Comment on above: Performed By: #### C DP, LIP #### [facility] [address] [place] [address] House Father: Zafar Castillo MD GFR,non Amer >60 Normal >60 [facility] Comment on above: Performed By: #### C DP, LIP #### [facility] [address] [place] [address] House Father: Zafar Castillo MD Glucose [Mass/Vol] 92 mg/dL Normal 70-99 [facility] Comment on above: Performed By: #### C DP, LIP #### [facility] [address] [place] [address] House Father: Zafar Castillo MD Potassium [Moles/Vol] 3.8 mmol/L Normal 3.7-5.3 [facility] Comment on above: Performed By: #### C DP, LIP #### [facility] [address] [place] [id number] House Father: Zafar Castillo MD Protein [Mass/Vol] 6.7 g/dL Normal 6.4-8.3 [facility] Comment on above: Performed By: #### C DP, LIP #### [facility] [address] [place] [address] House Father: Zafar Castillo MD Sodium [Moles/Vol] 136 mmol/L Normal 135-144 [facility] Comment on above: Performed By: #### C DP, LIP #### [facility] [address] [place] [address] House Father: Zafar Castillo MD Staging: Normal [facility] Comment on above: Result Comment: Stag e 1: Some kidney damage normal GFR Stage 2: Mild kidney damage GFR 60-89 Stage 3: Moderate kidney damage GFR 30-59 Stage 4: Severe kidney damage GFR 15-29 Stage 5: Severe kidney damage GFR <15 ESRD - chronic treatment by dialysis or transplant Performed By: #### C DP, LIP #### [address] [place] [address] House Father: Zafar Castillo MD Urea nitrogen [Mass/Vol] 8 mg/dL Normal 6-20 [facility] Comment on above: Performed By: #### C DP, LIP #### [address] [place] [address] House Father: Zafar Castillo MD [facility] Metabolic [facility] 08-22-2019 Albumin [Mass/Vol] 4.1 g/dL 3.5 - 5.2 g/dL [place] Albumin/Globulin [Mass ratio] 1.6 {ratio} [place] ALP [Catalytic activity/Vol] 109 U/L High 35 - 104 U/L [place] ALT [Catalytic activity/Vol] 13 U/L 5 - 33 U/L [place] Anion gap [Moles/Vol] 9 mmol/L 9 - 17 mmol/L [place] AST [Catalytic activity/Vol] 22 U/L <32 [place] Bilirubin Ql (U) <0.10 Low 0.3 - 1.2 mg/dL [place] Bun/Cre Ratio 13 [place] Calcium [Mass/Vol] 9.2 mg/dL 8.6 - 10. 4 mg/dL [place] Chloride [Moles/Vol] 103 mmol/L 98 - 10 7 mmol/L [place] CO2 [Moles/Vol] 24 mmol/L 20 - 31 mmol/L [place] Creatinine [Mass/Vol] 0.63 mg/dL 0.5 - 0.9 mg/dL [place] GFR >60 >60 mL/min [place] GFR Non- >60 >60 mL/min [place] Glucose [Mass/Vol] 92 mg/dL 70 - 99 mg/dL [place] Interpretation and review of laboratory results Abnormal [place] Potassium [Moles/Vol] 3.8 mmol/L 3.7 - 5.3 mmol/L [place] Protein [Mass/Vol] 6.7 g/dL 6.4 - 8.3 g/dL [place] Sodium [Moles/Vol] 136 mmol/L 135 - 144 mmol/L [place] Urea nitrogen [Mass/Vol] 8 mg/dL 6 - 20 mg/dL [place] Lactic Acidon 08-22-2019 Lactate [Moles/Vol] 1.5 mmol/L Normal 0.5-2.2 [facility] Comment on above: Performed By: #### L ACTIC #### [facility] [address] [place] [address] House Father: Zafar Castillo MD Lactate [Moles/Vol] NOT REPORTED Normal 0.7-2.1 [facility] Comment on above: Performed By: #### L ACTIC #### [facility] [address] [place] [address] House Father: Zafar Castillo MD Lactic Acid, Plasmaon 2019 Lactate [Moles/Vol] 1.5 mmol/L 0.5 - 2. 2 mmol/L [place] Lactic Acid, Whole Blood NOT REPORTED 0.7 - 2.1 mmol/L [place] Lipaseon 08-22-2019 Lipase [Catalytic activity/Vol] 255 U/L Critically high 13-60 [facility] Comment on above: Performed By: #### C DP, LIP #### [facility] [address] [place] [address] House Father: Zafar Castillo MD Interpretation and review of laboratory results Abnormal [place] Lipase [Catalytic activity/Vol] 255 U/L Critically high 13 - 60 U/L [place] Metabolic Panelon 08-22-2019 GFR/1.73 sq M predicted among non-blacks MDRD (S/P/Bld) [Vol rate/Area] [place] Comment on above: Average GFR for 50-5 9 years old: 93 mL/min/1.73sq m Chronic Kidney Disease: <60 mL/min/1.73sq m Kidney failure: <15 mL/min/1.73sq m eGFR calculated using average adult body mass. Additional eGFR calculator available at: http://www.[employer]/multiple_crcl_2012.htm Stage 1: Some kidney damage normal GFR Stage 2: Mild kidney damage GFR 60-89 Stage 3: Moderate kidney damage GFR 30-59 Stage 4: Severe kidney damage GFR 15-29 Stage 5: Severe kidney damage GFR <15 ESRD - chronic treatment by dialysis or transplant Urinalysis w/ Microon 2019 ----- Normal [facility] Comment on above: Performed By: #### C DP, LIP #### [facility] [address] [place] [address] House Father: Zafar Castillo MD Acetoacetic Acid,Ur Negative Normal NEG [facility] Comment on above: Performed By: #### C DP, LIP #### [facility] [address] [place], [facility] House Father: Zafar Castillo MD Bilirubin, SemiQt,Ur Negative Normal [facility] Comment on above: Performed By: #### C DP, LIP #### [facility] [address] [place], [place] [id number] House Father: Zafar Castillo MD Color (U) YELLOW Normal YEL [facility] Comment on above: Performed By: #### C DP, LIP #### [facility] [address] [place], [facility] House Father: Zafar Castillo MD Epithelial cells LM.HPF (Urine sed) [#/Area] 2 TO 5 Normal 0-25 [facility] Comment on above: Performed By: #### C DP, LIP #### [facility] [address] [place] [address] House Father: Zafar Castillo MD Glucose Ql (U) Negative Normal [facility] Comment on above: Performed By: #### C DP, LIP #### [address] [place] [address] House Father: Zafar Castillo MD Hemoglobin, Ur Negative Normal [facility] Comment on above: Performed By: #### C DP, LIP #### [facility] [address] [place], [place] [address] House Father: Zafar Castillo MD Leukocyte esterase Test strip Ql (U) Negative Normal [facility] Comment on above: Performed By: #### C DP, LIP #### [facility] [address] [place] [id number] House Father: Zafar Castillo MD Nitrite,Ur Negative [facility] Comment on above: Performed By: #### C DP, LIP #### [facility] [address] [place] [id number] House Father: Zafar Castillo MD pH (U) 6.0 [pH] Normal 5.0-9.0 [facility] Comment on above: Performed By: #### C DP, LIP #### [facility] [address] [place], [place] [id number] House Father: Zafar Castillo MD Protein Ql (U) Negative Normal NEG [facility] Comment on above: Performed By: #### C DP, LIP #### [facility] [address] [place] [address] House Father: Zafar Castillo MD RBC (U) [#/Vol] None Normal 0-2 [facility] Comment on above: Performed By: #### C DP, LIP #### [facility] [address] [place], [place] [id number] House Father: Zafar Castillo MD Specific gravity (U) [Rel density] <1.005 Low 1.010-1.020 [facility] Comment on above: Performed By: #### C DP, LIP #### [facility] [address] [place], [place] [id number] House Father: Zafar Castillo MD Turbidity CLEAR Normal CLEAR [facility] Comment on above: Performed By: #### C DP, LIP #### [facility] [address] [place] [address] House Father: Zafar Castillo MD Urobilinogen,Ur Normal Normal NORM [facility] Comment on above: Performed By: #### C DP, LIP #### [facility] [address] [place] [address] House Father: Zafar Castillo MD WBC (U) [#/Vol] None Normal 0-5 [facility] Comment on above: Performed By: #### C DP, LIP #### [facility] [address] [place], [place] [id number] House Father: Zafar Castillo MD Amorphous sediment LM Ql (Urine sed) NOT REPORTED Normal NONE [facility] Comment on above: Performed By: #### C DP, LIP #### [facility] [address] [place] [address] House Father: Zafar Castillo MD Bacteria LM.HPF (Urine sed) [#/Area] NOT REPORTED Normal [facility] Comment on above: Performed By: #### C DP, LIP #### [facility] [address] [place] [address] House Father: Zafar Castillo MD Casts LM.LPF (Urine sed) [#/Area] NOT REPORTED Normal [facility] Comment on above: Performed By: #### C DP, LIP #### [facility] [address] [place] [address] House Father: Zafar Castillo MD Comment NOT REPORTED Normal [facility] Comment on above: Performed By: #### C DP, LIP #### [facility] [address] [place] [address] House Father: Zafar Castillo MD Crystals LM Nom (Urine sed) NOT REPORTED Normal [facility] Comment on above: Performed By: #### C DP, LIP #### [facility] [address] [place] [address] House Father: Zafar Castillo MD Epithelial, Renal NOT REPORTED Normal 0 [facility] Comment on above: Performed By: #### C DP, LIP #### [facility] [address] [place] [address] House Father: Zafar Castillo MD Mucus Strands NOT REPORTED Normal [facility] Comment on above: Performed By: #### C DP, LIP #### [facility] [address] [place] [address] House Father: Zafar Castillo MD Other Observations NOT REPORTED Normal NREQ [facility] Comment on above: Performed By: #### C DP, LIP #### [facility] [address] [place] [address] House Father: Zafar Castillo MD Trichomonas NOT REPORTED Normal NONE [facility] Comment on above: Performed By: #### C DP, LIP #### [facility] [address] [place] [address] House Father: Zafar Castlilo MD Yeast LM Ql (Urine sed) NOT REPORTED Normal [facility] Comment on above: Performed By: #### C DP, LIP #### [facility] [address] [place] [address] House Father: Zafar Castillo MD Urinalysis with Microscopico n 08-22-2019 Amorphous, UA NOT REPORTED None [place], [place] Bacteria, UA NOT REPORTED None [place], [place] Bilirubin Urine Negative NEGATIVE [place] Casts UA NOT REPORTED /LPF [place], [place] Color, UA YELLOW YELLOW [place], [place] Crystals, UA NOT REPORTED None /HPF [place] Epithelial Cells UA 2 TO 5 [place], [place] Glucose, Ur Negative NEGATIVE [place] Interpretation and review of laboratory results Abnormal [place] Ketones Ql (U) Negative NEGATIVE [place] Leukocyte esterase Test strip Ql (U) Negative NEGATIVE [place] Mucus, UA NOT REPORTED None [place], [place] Nitrite, Urine Negative NEGATIVE [place] Other Observations UA NOT REPORTED NOT REQ. M [place], [place] pH, UA 6.0 [place] Protein (U) [Mass/Vol] Negative NEGATIVE [place], [place] RBC (U) [#/Vol] None [place] Renal Epithelial, UA NOT REPORTED 0 /HPF [place], [place] Specific [place], UA <1.005 Low [place], [place] Trichomonas, UA NOT REPORTED None [facility]- [place], [place] Turbidity UA CLEAR CLEAR [facility], [place] Urinalysis Comments NOT REPORTED [facility]- [place], [place] Urine Hgb Negative NEGATIVE [facility], [place] Urobilinogen, Urine Normal Normal [facility], [place] WBC, UA None [facility], [place] Yeast, UA NOT REPORTED None [facility], [place] [facility], [place] CBC WITH AUTO DIFFERENTIALon 03-04-2018 Basophils Auto #/vol (Bld) 0.07 10*3/uL Invalid Interpretation Code [facility] Basophils/100 WBC Auto (Bld) 0.7 % Invalid Interpretation Code [facility] Eosinophils Auto #/vol (Bld) 0.09 10*3/uL Invalid Interpretation Code [facility] Eosinophils/100 WBC Auto (Bld) 0.9 % Invalid Interpretation Code [facility] Erythrocyte distribution width Auto Entitic volume (RBC) 12.8 % Invalid Interpretation Code 11.6 - 14.8 % [facility] Hematocrit Auto Volume Fraction (Bld) 45.0 % Invalid Interpretation Code 36 - 46 % [facility] Hemoglobin mass conc (Bld) 15.4 g/dL Invalid Interpretation Code 12 - 16 g/dL [facility] Immature granulocytes #/vol (Bld) 0.03 10*3/uL Invalid Interpretation Code [facility] Immature granulocytes/100 WBC (Bld) 0.30 % Invalid Interpretation Code [facility] Comment on above: The IG parameter is the percentage of metamyelocytes, myelocytes, and promyelocytes. Interpretation and review of laboratory results Abnormal Invalid Interpretation Code [facility] Lymphocytes Auto #/vol (Bld) 2.22 10*3/uL Invalid Interpretation Code [facility] Lymphocytes/100 WBC Auto (Bld) 21.0 % Invalid Interpretation Code [facility] MCH Auto Entitic mass (RBC) 33.6 pg Invalid Interpretation Code 26 - 34 pg [facility] MCHC Auto mass conc (RBC) 34.2 g/dL Invalid Interpretation Code 31 - 37 g/dL [facility] MCV Auto Entitic volume (RBC) 98.0 fL Invalid Interpretation Code 80 - 100 fL [facility] Monocytes Auto #/vol (Bld) 0.82 10*3/uL Invalid Interpretation Code [facility] Monocytes/100 WBC Auto (Bld) 7.8 % Invalid Interpretation Code [facility] Neutrophils Auto #/vol (Bld) 7.33 10*3/uL High [facility] Neutrophils/100 WBC Auto (Bld) 69.3 % Invalid Interpretation Code [facility] Nucleated RBC #/vol (Bld) 0.00 10*3/uL Invalid Interpretation Code [facility] Nucleated RBC/100 WBC Ratio (Bld) 0.0 % Invalid Interpretation Code [facility] Platelet mean volume Auto Entitic volume (Bld) 10.1 fL Invalid Interpretation Code 9 - 15.5 fL [facility] Platelets Auto #/vol (Bld) 254 10*3/uL Invalid Interpretation Code [facility] RBC Auto #/vol (Bld) 4.59 10*6/uL Invalid Interpretation Code [facility] WBC Auto #/vol (Bld) 10.56 10*3/uL Invalid Interpretation Code [facility] Chem 7on 03-04-2018 Anion gap 3 molar conc 15 mmol/L Invalid Interpretation Code 10 - 20 mmol/L [facility] Chloride molar conc 103 mmol/L Invalid Interpretation Code 98 - 108 mmol/L [facility] Creatinine mass conc 0.85 mg/dL Invalid Interpretation Code 0.4 - 1.1 mg/dL [facility] GFR/1.73 sq M predicted among non-blacks MDRD vol rate/area (S/P/Bld) The eGFR should be used for monitoring renal function only and not for medication dosing. Invalid Interpretation Code [facility] GFR/1.73 sq M.predicted CKD-EPI vol rate/area (S/P/Bld) 81 Invalid Interpretation Code >=60 mL/min/1.73 m2 [facility] Glucose mass conc 92 mg/dL Invalid Interpretation Code 65 - 99 mg/dL [facility] HCO3 molar conc 25 mmol/L Invalid Interpretation Code 21 - 32 mmol/L [facility] Potassium molar conc 4.4 mmol/L Invalid Interpretation Code 3.5 - 5.1 mmol/L [facility] Sodium molar conc 139 mmol/L Invalid Interpretation Code 135 - 145 mmol/L [facility] Urea nitrogen mass conc 7 mg/dL Low 8 - 25 mg/dL [facility] Urea nitrogen/Creatinine mass ratio 8.2 mg/mg Low [facility] Hepatic Function Panel (LFT) on 03-04-2018 Albumin mass conc 4.5 g/dL Invalid Interpretation Code 3.2 - 5.2 g/dL [facility] ALP enzyme act/vol 97 U/L Invalid Interpretation Code 40 - 150 U/L [facility] ALT enzyme act/vol 9 U/L Invalid Interpretation Code 0 - 40 U/L [facility] AST enzyme act/vol 15 U/L Invalid Interpretation Code 0 - 45 U/L [facility] Bilirubin mass conc mg/dL Invalid Interpretation Code 0 - 1.3 mg/dL [facility] Bilirubin.conjugated mass conc mg/dL Invalid Interpretation Code 0 - 0.4 mg/dL [facility] Interpretation and review of laboratory results Normal Invalid Interpretation Code [facility] Protein mass conc 7.2 g/dL Invalid Interpretation Code 6 - 8 g/dL [facility] Lipaseon 03-04-2018 Lipase enzyme act/vol 179 U/L High 15 - 65 U/L [facility] Otheron 03-04-2018 Extra Tube Hold for add-ons. Invalid Interpretation Code [facility] Comment on above: Auto resulted. Interpretation and review of laboratory results Abnormal Invalid Interpretation Code [facility] URINALYSISon 03-04-2018 Bacteria Auto Ql (U) Rare Abnormal None Se en /hpf [facility] Bilirubin Ql (U) Negative Invalid Interpretation Code Negative [facility] Clarity Refractometry automated Nom (U) Clear Invalid Interpretation Code Clear [facility] Color Auto Nom (U) Colorless Invalid Interpretation Code Colorless, Yellow [facility] Epithelial cells.squamous Auto #/area (Urine sed) 1 Invalid Interpretation Code [facility] Glucose Automated test strip mass conc (U) Negative Invalid Interpretation Code Negative mg/dL [facility] Hemoglobin Automated test strip Ql (U) Negative Invalid Interpretation Code Negative [facility] Interpretation and review of laboratory results Abnormal Invalid Interpretation Code [facility] Ketones mass conc (U) Negative Invalid Interpretation Code Negative mg/dL [facility] Leukocyte esterase Automated test strip Ql (U) Negative Invalid Interpretation Code Negative [facility] Nitrite Automated test strip Ql (U) Negative Invalid Interpretation Code Negative [facility] pH Test strip (U) 7.0 [pH] Invalid Interpretation Code [facility] Protein mass conc (U) Negative Invalid Interpretation Code Negative mg/dL [facility] RBC Auto #/area (Urine sed) 2 Invalid Interpretation Code [facility] Specific gravity Automated test strip Relative Density (U) 1.004 Low [facility] Urobilinogen Test strip Qn (U) <2.0 Invalid Interpretation Code <2.0 mg/dL [facility] WBC Auto #/area (Urine sed) <1 Invalid Interpretation Code [facility] Microscopic examination is performed on all urinalysis samples and only positive findings are reported. The test for blood on the chemical analytic portion of urinalysis may also be positive due to hemoglobinuria and myoglobinuria and if red blood cells are present they are quantified by microscopic examination. Invalid Interpretation Code [facility] BMPon 08-24-2017 Anion gap 18 mmol/L Invalid Interpretation Code 10 - 20 mmol/L [facility] Bicarbonate (HCO3) 27 mmol/L Invalid Interpretation Code 21 - 32 mmol/L [facility] BUN/Creatinine Ratio 10.1 mg/mg Invalid Interpretation Code 10.0 - 20.0 [facility] Calcium 10.6 mg/dL High 8.4 - 10.2 mg/dL [facility] Chloride 101 mmol/L Invalid Interpretation Code 98 - 108 mmol/L [facility] Creatinine 0.69 mg/dL Invalid Interpretation Code 0.4 - 1.1 mg/dL [facility] eGFR (non-black) 103 mL/min/{1.73_m2} Invalid Interpretation Code >=60 [facility] eGFR (non-black) The eGFR should be used for monitoring renal function only and not for medication dosing. Invalid Interpretation Code [facility] Glucose mass conc 105 mg/dL High 65 - 99 mg/dL [facility] Interpretation and review of laboratory results Abnormal Invalid Interpretation Code [facility] Potassium molar conc 4.1 mmol/L Invalid Interpretation Code 3.5 - 5.1 mmol/L [facility] Sodium 142 mmol/L Invalid Interpretation Code 135 - 145 mmol/L [facility] Urea nitrogen 7 mg/dL Low 8 - 25 mg/dL [facility] CBC Auto Differentialon 08-07 Basophils Auto #/vol (Bld) 0.08 K/mcL Invalid Interpretation Code 0.00 - 0.30 [facility] Basophils/100 WBC Auto (Bld) 0.6 % Invalid Interpretation Code [facility] Eosinophils 0.05 K/mcL Invalid Interpretation Code 0.00 - 0.50 [facility] Eosinophils/100 leukocytes 0.4 % Invalid Interpretation Code [facility] Erythrocyte distribution width Auto Entitic volume (RBC) 12.2 % Invalid Interpretation Code 11.6 - 14.8 % [facility] Erythrocytes (RBC) 4.60 M/mcL Invalid Interpretation Code 4.00 - 5.20 [facility] Hematocrit (HCT) 43.4 % Invalid Interpretation Code 36 - 46 % [facility] Hemoglobin mass conc (Bld) 15.2 g/dL Invalid Interpretation Code 12 - 16 g/dL [facility] Immature granulocytes #/vol (Bld) 0.05 K/mcL Invalid Interpretation Code 0.00 - 0.30 [facility] Immature granulocytes/100 WBC (Bld) 0.40 % Invalid Interpretation Code [facility] Comment on above: The IG parameter is the percentage of metamyelocytes, myelocytes, and promyelocytes. Lymphocytes 2.40 K/mcL Invalid Interpretation Code 0.90 - 4.00 [facility] Lymphocytes/100 leukocytes 18.1 % Invalid Interpretation Code [facility] MCH 33.0 pg Invalid Interpretation Code 26 - 34 pg [facility] MCHC mass conc (RBC) 35.0 g/dL Invalid Interpretation Code 31 - 37 g/dL [facility] MCV 94.3 fL Invalid Interpretation Code 80 - 100 fL [facility] Monocytes 0.85 K/mcL Invalid Interpretation Code 0.30 - 0.90 [facility] Monocytes/100 leukocytes 6.4 % Invalid Interpretation Code [facility] Neutrophils 9.81 K/mcL High 1.70 - 7.00 [facility] Neutrophils/100 WBC Auto (Bld) 74.1 % Invalid Interpretation Code [facility] Nucleated erythrocytes 0.00 K/mcL Invalid Interpretation Code 0.00 - 0.00 [facility] Nucleated erythrocytes/100 erythrocytes 0.0 % Invalid Interpretation Code [facility] Platelet mean volume (PMV) 10.0 fL Invalid Interpretation Code 9 - 15.5 fL [facility] Platelets 242 K/mcL Invalid Interpretation Code 150 - 400 [facility] WBC (Leukocytes) 13.24 K/mcL High 4.50 - 11.00 [facility] CBC w/ Diffon 08-24-2017 Creatinine The following orders were created for panel order CBC w/ Diff. Procedure Abnormality Status --------- ------ CBC Auto Differential[[id number] ] Abnormal Final result Please view results for these tests on the individual orders. Invalid Interpretation Code [facility] ABDOMEN PELVIS WITH IV CO [...] and demonstrated a prominent signal loss on [id number] images on MRI performed 09/06/2014, compatible with [...] 24, 2017 4:03:34 PM EDT Normal [facility] Comment on above: Order Comment: Reaso [...] and demonstrated a prominent signal loss on [id number] images on MRI performed 09/06/2014, compatible with [...] probably remain. 5. Small left adrenal adenoma. [employer] Workstation ID: [id number] Invalid Interpretation Code [email or web address] [facility] CT Abdomen Pelvis With IV Contrast Only [...] and demonstrated a prominent signal loss on [id number] images on MRI performed 09/06/2014, compatible with [...] suspicious focal osseous lesions. Invalid Interpretation Code [facility] CT Abdomen Pelvis With IV Contrast Only [...] probably remain. 5. Small left adrenal adenoma. [employer] Workstation ID: [id number] Invalid Interpretation Code [facility] Hepatic Function Panel (LFT) on 08-24-2017 Alanine aminotransferase (ALT) 14 U/L Invalid Interpretation Code 0 - 40 U/L [facility] Albumin 4.7 g/dL Invalid Interpretation Code 3.2 - 5.2 g/dL [facility] Alkaline phosphatase (ALP) 91 U/L Invalid Interpretation Code 40 - 150 U/L [facility] Aspartate aminotransferase (AST) 17 U/L Invalid Interpretation Code 0 - 45 U/L [facility] Bilirubin (conjugated) mg/dL Invalid Interpretation Code 0 - 0.4 mg/dL [facility] Bilirubin (total) mg/dL Invalid Interpretation Code 0 - 1.3 mg/dL [facility] Interpretation and review of laboratory results Normal Invalid Interpretation Code [facility] Protein 7.4 g/dL Invalid Interpretation Code 6 - 8 g/dL [facility] Lactic Acid, Plasmaon 2017 Lactate 1.0 mmol/L Invalid Interpretation Code 0.6 - 2 mmol/L [facility] Light Blue Topon 08-24-2017 Extra Tube Hold for add-ons. Invalid Interpretation Code [facility] Comment on above: Auto resulted. Lipaseon 08-24-2017 Lipase 51 U/L Invalid Interpretation Code 15 - 65 U/L [facility] [place] Topon 08-24-2017 [place] Top Invalid Interpretation Code [facility] [place] Drawon 08-24-2017 Creatinine The following orders were created for panel order [place] Draw. Procedure Abnormality Status --------- ------ Gold Top[[id number]] Final result Light Blue Top[[id number]] Final result [place] Top[[id number]] Final result Please view results for these tests on the individual orders. Invalid Interpretation Code [facility] Ur[facility] 08-24-2017 Bilirubin Ql (U) Negative Invalid Interpretation Code Negative [facility] Blood, Urine Negative Invalid Interpretation Code Negative [facility] Interpretation and review of laboratory results Abnormal Invalid Interpretation Code [facility] Nitrite, Urine Negative Invalid Interpretation Code Negative [facility] Squamous Epithelial 5 /hpf High 0 - 4 [facility] Transitional Epithelial <1 Invalid Interpretation Code 0 - 1 /hpf [facility] Urine, bacteria in sediment Rare Abnormal None Seen /hpf [facility] Urine, clarity Hazy Abnormal Clear [facility] Urine, color Yellow Invalid Interpretation Code Colorless, Yellow [facility] Urine, erythrocytes 1 /hpf Invalid Interpretation Code 0 - 3 [facility] Urine, glucose presence Negative Invalid Interpretation Code Negative mg/dL [facility] Urine, ketones presence Negative Invalid Interpretation Code Negative mg/dL [facility] Urine, leukocyte esterase presence Negative Invalid Interpretation Code Negative [facility] Urine, pH 7.0 [pH] Invalid Interpretation Code 5.0 - 7.0 [facility] Urine, protein Negative Invalid Interpretation Code Negative mg/dL [facility] Urine, specific gravity 1.006 1 Invalid Interpretation Code 1.005 - 1.025 [facility] Urine, urobilinogen <2.0 Invalid Interpretation Code <2.0 mg/dL [facility] WBCs, Urine 1 /hpf Invalid Interpretation Code 0 - 5 [facility] Urinalysis Microscopic examination is performed on all urinalysis samples and only positive findings are reported. The test for blood on the chemical analytic portion of urinalysis may also be positive due to hemoglobinuria and myoglobinuria and if red blood cells are present they are quantified by microscopic examination. Invalid Interpretation Code [facility] BMPon 06-09-2017 Anion gap 18 mmol/L Invalid Interpretation Code 10 - 20 mmol/L [facility] Bicarbonate (HCO3) 21 mmol/L Invalid Interpretation Code 21 - 32 mmol/L [facility] BUN/Creatinine Ratio 11.0 mg/mg Invalid Interpretation Code 10.0 - 20.0 [facility] Calcium 10.2 mg/dL Invalid Interpretation Code 8.4 - 10.2 mg/dL [facility] Chloride 102 mmol/L Invalid Interpretation Code 98 - 108 mmol/L [facility] Creatinine 0.73 mg/dL Invalid Interpretation Code 0.4 - 1.1 mg/dL [facility] eGFR (non-black) The eGFR should be used for monitoring renal function only and not for medication dosing. Invalid Interpretation Code [facility] eGFR (non-black) 98 mL/min/{1.73_m2} Invalid Interpretation Code >=60 [facility] Glucose 80 mg/dL Invalid Interpretation Code 65 - 99 mg/dL [facility] Potassium 4.3 mmol/L Invalid Interpretation Code 3.5 - 5.1 mmol/L [facility] Sodium 137 mmol/L Invalid Interpretation Code 135 - 145 mmol/L [facility] Urea nitrogen 8 mg/dL Invalid Interpretation Code 8 - 25 mg/dL [facility] CBC Auto Differentialon 04-0 Basophils 0.07 K/mcL Invalid Interpretation Code 0.00 - 0.30 [facility] Basophils/100 leukocytes 0.7 % Invalid Interpretation Code [facility] Eosinophils 0.10 K/mcL Invalid Interpretation Code 0.00 - 0.50 [facility] Eosinophils/100 leukocytes 1.0 % Invalid Interpretation Code [facility] Erythrocytes (RBC) 4.75 M/mcL Invalid Interpretation Code 4.00 - 5.20 [facility] Erythrocytes (RBC) 0.00 K/mcL Invalid Interpretation Code 0.00 - 0.00 [facility] Hematocrit (HCT) 46.1 % High 36 - 46 % [facility] Hemoglobin (HGB) 16.1 g/dL High 12 - 16 g/dL [facility] IG Absolute 0.02 K/mcL Invalid Interpretation Code 0.00 - 0.30 [facility] IG Percent 0.20 % Invalid Interpretation Code [facility] Lymphocytes 1.75 K/mcL Invalid Interpretation Code 0.90 - 4.00 [facility] Lymphocytes/100 leukocytes 17.9 % Invalid Interpretation Code [facility] MCH 33.9 pg Invalid Interpretation Code 26 - 34 pg [facility] MCHC 34.9 g/dL Invalid Interpretation Code 31 - 37 g/dL [facility] MCV 97.1 fL Invalid Interpretation Code 80 - 100 fL [facility] Monocytes 0.88 K/mcL Invalid Interpretation Code 0.30 - 0.90 [facility] Monocytes/100 leukocytes 9.0 % Invalid Interpretation Code [facility] Neutrophils 6.98 K/mcL Invalid Interpretation Code 1.70 - 7.00 [facility] Neutrophils/100 leukocytes 71.2 % Invalid Interpretation Code [facility] Nucleated erythrocytes/100 erythrocytes 0.0 % Invalid Interpretation Code [facility] Platelet mean volume (PMV) 10.9 fL Invalid Interpretation Code 9 - 15.5 fL [facility] Platelets 223 K/mcL Invalid Interpretation Code 150 - 400 [facility] RDW-CA 12.8 % Invalid Interpretation Code 11.6 - 14.8 % [facility] WBC (Leukocytes) 9.80 K/mcL Invalid Interpretation Code 4.50 - 11.00 [facility] Interpretation and review of laboratory results Abnormal Invalid Interpretation Code [facility] CBC w/ Diffon 06-09-2017 Creatinine The following orders were created for panel order CBC w/ Diff. Procedure Abnormality Status --------- ------ CBC Auto Differential[[id number] ] Abnormal Final result Please view results for these tests on the individual orders. Invalid Interpretation Code [facility] Hepatic Function Panel (LFT) on 06-09-2017 Alanine aminotransferase (ALT) 10 U/L Invalid Interpretation Code 0 - 40 U/L [facility] Albumin 4.4 g/dL Invalid Interpretation Code 3.2 - 5.2 g/dL [facility] Alkaline phosphatase (ALP) 89 U/L Invalid Interpretation Code 40 - 150 U/L [facility] Aspartate aminotransferase (AST) 20 U/L Invalid Interpretation Code 0 - 45 U/L [facility] Bilirubin (conjugated) mg/dL Invalid Interpretation Code 0 - 0.4 mg/dL [facility] Bilirubin (total) mg/dL Invalid Interpretation Code 0 - 1.3 mg/dL [facility] Interpretation and review of laboratory results Normal Invalid Interpretation Code [facility] Protein 7.3 g/dL Invalid Interpretation Code 6 - 8 g/dL [facility] Lipaseon 06-09-2017 Lipase 50 U/L Invalid Interpretation Code 15 - 65 U/L [facility] [place] Draw[place] 06-09-2017 Creatinine The following orders were created for panel order [place] Draw. Procedure Abnormality Status --------- ------ Urine Container[[id number]] Final result Please view results for these tests on the individual orders. Invalid Interpretation Code [facility] Urinalysison 06-09-2017 Bilirubin, Urine Negative Invalid Interpretation Code Negative [facility] Blood, Urine Negative Invalid Interpretation Code Negative [facility] Calcium Many Abnormal None Seen /hpf [facility] Mucus, Urine Rare Invalid Interpretation Code None Seen, Rare /lpf [facility] Nitrite, Urine Negative Invalid Interpretation Code Negative [facility] RBCs, Urine 1 /hpf Invalid Interpretation Code 0 - 3 [facility] Squamous Epithelial 4 /hpf Invalid Interpretation Code 0 - 4 [facility] Urine, bacteria in sediment None Seen Invalid Interpretation Code None Seen /hpf [facility] Urine, clarity Cloudy Abnormal Clear [facility] Urine, color Yellow Invalid Interpretation Code Colorless, Yellow [facility] Urine, glucose presence Negative Invalid Interpretation Code Negative mg/dL [facility] Urine, ketones presence Trace Abnormal Negative mg/dL [facility] Urine, leukocyte esterase presence Negative Invalid Interpretation Code Negative [facility] Urine, pH 5.0 [pH] Invalid Interpretation Code 5.0 - 7.0 [facility] Urine, protein Negative Invalid Interpretation Code Negative mg/dL [facility] Urine, specific gravity 1.024 1 Invalid Interpretation Code 1.005 - 1.025 [facility] Urine, urobilinogen 2.0 mg/dL Abnormal <2.0 [facility] WBCs, Urine 1 /hpf Invalid Interpretation Code 0 - 5 [facility] Urinalysis Microscopic examination is performed on all urinalysis samples and only positive findings are reported. The test for blood on the chemical analytic portion of urinalysis may also be positive due to hemoglobinuria and myoglobinuria and if red blood cells are present they are quantified by microscopic examination. Invalid Interpretation Code [facility] Urine Containeron 06-09-2017 Urine Container Invalid Interpretation Code [facility] CBCon 05-15-2017 Erythrocytes (RBC) 3.76 M/mcL Low 4.00 - 5.20 [facility] Erythrocytes (RBC) 0.00 K/mcL Invalid Interpretation Code 0.00 - 0.00 [facility] Hematocrit (HCT) 37.1 % Invalid Interpretation Code 36 - 46 % [facility] Hemoglobin (HGB) 12.4 g/dL Invalid Interpretation Code 12 - 16 g/dL [facility] MCH 33.0 pg Invalid Interpretation Code 26 - 34 pg [facility] MCHC 33.4 g/dL Invalid Interpretation Code 31 - 37 g/dL [facility] MCV 98.7 fL Invalid Interpretation Code 80 - 100 fL [facility] Nucleated erythrocytes/100 erythrocytes 0.0 % Invalid Interpretation Code [facility] Platelet mean volume (PMV) 9.9 fL Invalid Interpretation Code 9 - 15.5 fL [facility] Platelets 197 K/mcL Invalid Interpretation Code 150 - 400 [facility] RDW-CA 12.6 % Invalid Interpretation Code 11.6 - 14.8 % [facility] WBC (Leukocytes) 7.55 K/mcL Invalid Interpretation Code 4.50 - 11.00 [facility] Comprehensive Metabolic Pane nimesh 05-15-2017 Alanine aminotransferase (ALT) 9 U/L Invalid Interpretation Code 0 - 40 U/L [facility] Albumin 3.3 g/dL Invalid Interpretation Code 3.2 - 5.2 g/dL [facility] Alkaline phosphatase (ALP) 73 U/L Invalid Interpretation Code 40 - 150 U/L [facility] Anion gap 15 mmol/L Invalid Interpretation Code 10 - 20 mmol/L [facility] Aspartate aminotransferase (AST) 13 U/L Invalid Interpretation Code 0 - 45 U/L [facility] Bicarbonate (HCO3) 23 mmol/L Invalid Interpretation Code 21 - 32 mmol/L [facility] Bilirubin (total) 0.2 mg/dL Invalid Interpretation Code 0 - 1.3 mg/dL [facility] BUN/Creatinine Ratio 9.4 mg/mg Low 10.0 - 20.0 [facility] Calcium 8.4 mg/dL Invalid Interpretation Code 8.4 - 10.2 mg/dL [facility] Chloride 108 mmol/L Invalid Interpretation Code 98 - 108 mmol/L [facility] Creatinine 0.64 mg/dL Invalid Interpretation Code 0.4 - 1.1 mg/dL [facility] eGFR (non-black) The eGFR should be used for monitoring renal function only and not for medication dosing. Invalid Interpretation Code [facility] eGFR (non-black) 107 mL/min/{1.73_m2} Invalid Interpretation Code >=60 [facility] Glucose 91 mg/dL Invalid Interpretation Code 65 - 99 mg/dL [facility] Potassium 4.0 mmol/L Invalid Interpretation Code 3.5 - 5.1 mmol/L [facility] Protein 5.3 g/dL Low 6 - 8 g/dL [facility] Sodium 142 mmol/L Invalid Interpretation Code 135 - 145 mmol/L [facility] Urea nitrogen 6 mg/dL Low 8 - 25 mg/dL [facility] Lipaseon 05-15-2017 Interpretation and review of laboratory results Normal Invalid Interpretation Code [facility] Lipase 31 U/L Invalid Interpretation Code 15 - 65 U/L [facility] Lipid Panelon 05-15-2017 Cholesterol 193 mg/dL Invalid Interpretation Code 100 - 199 mg/dL [facility] Cholesterol to HDL Ratio 7.1 {ratio} Invalid Interpretation Code [facility] HDL Cholesterol 27 mg/dL Low 40 - 59 mg/dL [facility] HDL Cholesterol 166 mg/dL Invalid Interpretation Code [facility] Interpretation and review of laboratory results Abnormal Invalid Interpretation Code [facility] LDL Cholesterol 108 mg/dL Invalid Interpretation Code 10 - 130 mg/dL [facility] Triglyceride 291 mg/dL High 30 - 150 mg/dL [facility] BMPon 05-14-2017 Anion gap 18 mmol/L Invalid Interpretation Code 10 - 20 mmol/L [facility] Bicarbonate (HCO3) 25 mmol/L Invalid Interpretation Code 21 - 32 mmol/L [facility] BUN/Creatinine Ratio 11.8 mg/mg Invalid Interpretation Code 10.0 - 20.0 [facility] Calcium 10.7 mg/dL High 8.4 - 10.2 mg/dL [facility] Chloride 102 mmol/L Invalid Interpretation Code 98 - 108 mmol/L [facility] Creatinine 0.68 mg/dL Invalid Interpretation Code 0.4 - 1.1 mg/dL [facility] eGFR (non-black) The eGFR should be used for monitoring renal function only and not for medication dosing. Invalid Interpretation Code [facility] eGFR (non-black) 105 mL/min/{1.73_m2} Invalid Interpretation Code >=60 [facility] Glucose 86 mg/dL Invalid Interpretation Code 65 - 99 mg/dL [facility] Potassium 4.0 mmol/L Invalid Interpretation Code 3.5 - 5.1 mmol/L [facility] Sodium 141 mmol/L Invalid Interpretation Code 135 - 145 mmol/L [facility] Urea nitrogen 8 mg/dL Invalid Interpretation Code 8 - 25 mg/dL [facility] CBC Auto Differentialon 03-0 Basophils 0.09 K/mcL Invalid Interpretation Code 0.00 - 0.30 [facility] Basophils/100 leukocytes 0.8 % Invalid Interpretation Code [facility] Eosinophils 0.08 K/mcL Invalid Interpretation Code 0.00 - 0.50 [facility] Eosinophils/100 leukocytes 0.7 % Invalid Interpretation Code [facility] Erythrocytes (RBC) 0.00 K/mcL Invalid Interpretation Code 0.00 - 0.00 [facility] Erythrocytes (RBC) 4.96 M/mcL Invalid Interpretation Code 4.00 - 5.20 [facility] Hematocrit (HCT) 48.5 % High 36 - 46 % [facility] Hemoglobin (HGB) 16.6 g/dL High 12 - 16 g/dL [facility] IG Absolute 0.04 K/mcL Invalid Interpretation Code 0.00 - 0.30 [facility] IG Percent 0.40 % Invalid Interpretation Code [facility] Interpretation and review of laboratory results Abnormal Invalid Interpretation Code [facility] Lymphocytes 1.89 K/mcL Invalid Interpretation Code 0.90 - 4.00 [facility] Lymphocytes/100 leukocytes 17.7 % Invalid Interpretation Code [facility] MCH 33.5 pg Invalid Interpretation Code 26 - 34 pg [facility] MCHC 34.2 g/dL Invalid Interpretation Code 31 - 37 g/dL [facility] MCV 97.8 fL Invalid Interpretation Code 80 - 100 fL [facility] Monocytes 0.74 K/mcL Invalid Interpretation Code 0.30 - 0.90 [facility] Monocytes/100 leukocytes 6.9 % Invalid Interpretation Code [facility] Neutrophils 7.86 K/mcL High 1.70 - 7.00 [facility] Neutrophils/100 leukocytes 73.5 % Invalid Interpretation Code [facility] Nucleated erythrocytes/100 erythrocytes 0.0 % Invalid Interpretation Code [facility] Platelet mean volume (PMV) 9.8 fL Invalid Interpretation Code 9 - 15.5 fL [facility] Platelets 275 K/mcL Invalid Interpretation Code 150 - 400 [facility] RDW-CA 12.8 % Invalid Interpretation Code 11.6 - 14.8 % [facility] WBC (Leukocytes) 10.70 K/mcL Invalid Interpretation Code 4.50 - 11.00 [facility] CBC w/ Diffon 05-14-2017 Creatinine The following orders were created for panel order CBC w/ Diff. Procedure Abnormality Status --------- ------ CBC Auto Differential[[id number] ] Abnormal Final result Please view results for these tests on the individual orders. Invalid Interpretation Code [facility] CT ABDOMEN PELVIS WITH IV CO [...] appendix in the left lower pelvis.Workstation ID: [id number] by: ERROL ANN on ThuMay 14, 2017 4:08:10 PM ESTTranscribed by: ERROL ANN on ThuMay 14, 2017 4:08:10 PM ESTFinalized by: ERROL ANN on ThuMay 14, 2017 4:08:10 PM EST Normal [facility] Comment on above: Order Comment: Reaso [...] at L1-L2 and L4-L5. Invalid Interpretation Code [email or web address] [facility] CT Abdomen Pelvis With IV Contrast Only Interface, Rad In [employer] - 05/14/2017 4:10 PM EST EXAMINATION: CT [...] in the left lower pelvis. Workstation ID: [id number] Invalid Interpretation Code [email or web address] [facility] CT Abdomen Pelvis With IV Contrast Only [...] in the left lower pelvis. Workstation ID: [id number] Invalid Interpretation Code [employer] [place] [facility] Ruff Topon 05-14-2017 Extra Tube Hold for add-ons. Invalid Interpretation Code [facility] Hepatic Function Panel (LFT) on 05-14-2017 Alanine aminotransferase (ALT) 13 U/L Invalid Interpretation Code 0 - 40 U/L [facility] Albumin 4.8 g/dL Invalid Interpretation Code 3.2 - 5.2 g/dL [facility] Alkaline phosphatase (ALP) 102 U/L Invalid Interpretation Code 40 - 150 U/L [facility] Aspartate aminotransferase (AST) 20 U/L Invalid Interpretation Code 0 - 45 U/L [facility] Bilirubin (conjugated) mg/dL Invalid Interpretation Code 0 - 0.4 mg/dL [facility] Bilirubin (total) 0.2 mg/dL Invalid Interpretation Code 0 - 1.3 mg/dL [facility] Interpretation and review of laboratory results Normal Invalid Interpretation Code [facility] Protein 7.9 g/dL Invalid Interpretation Code 6 - 8 g/dL [facility] Lipaseon 05-14-2017 Lipase 137 U/L High 15 - 65 U/L [facility] [place] Topon 05-14-2017 [place] Top Invalid Interpretation Code [facility] [place] Draw[place] 05-14-2017 Creatinine The following orders were created for panel order [place] Draw. Procedure Abnormality Status --------- ------ Gold Top[[id number]] Final result Light Blue Top[[id number]] Final result Ruff Top[[id number]] Final result [place] Top[[id number]] Final result Please view results for these tests on the individual orders. Invalid Interpretation Code [facility] Urinalysison 05-14-2017 Bilirubin, Urine Negative Invalid Interpretation Code Negative [facility] Blood, Urine Negative Invalid Interpretation Code Negative [facility] Interpretation and review of laboratory results Abnormal Invalid Interpretation Code [facility] Mucus, Urine Rare Invalid Interpretation Code None Seen, Rare /lpf [facility] Nitrite, Urine Negative Invalid Interpretation Code Negative [facility] RBCs, Urine 2 /hpf Invalid Interpretation Code 0 - 3 [facility] Squamous Epithelial 3 /hpf Invalid Interpretation Code 0 - 4 [facility] Urine, bacteria in sediment Rare Abnormal None Seen /hpf [facility] Urine, clarity Clear Invalid Interpretation Code Clear [facility] Urine, color Yellow Invalid Interpretation Code Colorless, Yellow [facility] Urine, glucose presence Negative Invalid Interpretation Code Negative mg/dL [facility] Urine, ketones presence Negative Invalid Interpretation Code Negative mg/dL [facility] Urine, leukocyte esterase presence Negative Invalid Interpretation Code Negative [facility] Urine, pH 5.0 [pH] Invalid Interpretation Code 5.0 - 7.0 [facility] Urine, protein Negative Invalid Interpretation Code Negative mg/dL [facility] Urine, specific gravity 1.006 1 Invalid Interpretation Code 1.005 - 1.025 [facility] Urine, urobilinogen <2.0 Invalid Interpretation Code <2.0 mg/dL [facility] WBCs, Urine 1 /hpf Invalid Interpretation Code 0 - 5 [facility] Urinalysis Microscopic examination is performed on all urinalysis samples and only positive findings are reported. The test for blood on the chemical analytic portion of urinalysis may also be positive due to hemoglobinuria and myoglobinuria and if red blood cells are present they are quantified by microscopic examination. Invalid Interpretation Code [facility] Vital Signs Date Time Vital Sign Value Performing Clinician Facility 04-02-2023 19:20-0500 Diastolic blood pressure 74 mm[Hg] [facility] 04-02-2023 19:20-0500 Heart rate 91 /min [facility] 04-02-2023 19:20-0500 Respiratory rate 18 /min [facility] 04-02-2023 19:20-0500 SaO2% (BldA) [Mass fraction] 96 % [facility] 04-02-2023 19:20-0500 Systolic blood pressure 137 mm[Hg] [facility] 04-02-2023 13:45-0500 Body height 157.48 cm [facility] 04-02-2023 13:45-0500 Body temperature 97.6 [degF] [facility] 04-02-2023 13:45-0500 Body weight 54 kg [facility] 11-09-2022 16:30-0400 Diastolic blood pressure 81 mm[Hg] [facility] 11-09-2022 16:30-0400 Heart rate 78 /min [facility] 11-09-2022 16:30-0400 Respiratory rate 18 /min [facility] 11-09-2022 16:30-0400 SaO2% (BldA) [Mass fraction] 99 % [facility] 11-09-2022 16:30-0400 Systolic blood pressure 141 mm[Hg] [facility] 11-09-2022 13:47-0400 Body height 160.02 cm [facility] 11-09-2022 13:47-0400 Body temperature 98.2 [degF] [facility] 11-09-2022 13:47-0400 Body weight 54.2 kg [facility] 08-12-2022 13:15-0400 Diastolic blood pressure 68 mm[Hg] Sabrina Dee MD, MPH Work Phone: [facility] 08-12-2022 13:15-0400 Heart rate 67 /min Sabrina Dee MD, MPH Work Phone: [facility] 08-12-2022 13:15-0400 Respiratory rate 22 /min Sabrina Dee MD, MPH Work Phone: [facility] 08-12-2022 13:15-0400 SaO2% (BldA) [Mass fraction] 99 % Sabrina Dee MD, MPH Work Phone: [facility] 08-12-2022 13:15-0400 Systolic blood pressure 142 mm[Hg] Sabrina Dee MD, MPH Work Phone: [facility] 08-12-2022 11:45-0400 Body temperature 97.81 [degF] Sabrina Dee MD, MPH Work Phone: [facility] 08-12-2022 10:34-0400 Body height 157.5 cm Sabrina Dee MD, MPH Work Phone: [facility] 06-16-2022 10:52-0400 Body mass index (BMI) [Ratio] 23.41 kg/m2 Sabrina Dee MD, MPH Work Phone: [facility] 06-16-2022 10:52-0400 Body weight 58.06 kg Sabrina Dee MD, MPH Work Phone: [facility] 06-16-2022 10:52-0400 Diastolic blood pressure 68 mm[Hg] Sabrina Dee MD, MPH Work Phone: [facility] 06-16-2022 10:52-0400 Heart rate 83 /min Sabrina Dee MD, MPH Work Phone: [facility] 06-16-2022 10:52-0400 SaO2% (BldA) [Mass fraction] 98 % Sabrina Dee MD, MPH Work Phone: [facility] 06-16-2022 10:52-0400 Systolic blood pressure 122 mm[Hg] Sabrina Dee MD, MPH Work Phone: [facility] 03-22-2022 16:51-0500 Diastolic blood pressure 61 mm[Hg] [facility] 03-22-2022 16:51-0500 Heart rate 98 /min [facility] 03-22-2022 16:51-0500 Respiratory rate 20 /min [facility] 03-22-2022 16:51-0500 SaO2% (BldA) [Mass fraction] 98 % [facility] 03-22-2022 16:51-0500 Systolic blood pressure 149 mm[Hg] [facility] 03-22-2022 14:59-0500 Body height 157.48 cm [facility] 03-22-2022 14:59-0500 Body temperature 97.9 [degF] [facility] 03-22-2022 14:59-0500 Body weight 56 kg [facility] 12-16-2021 11:53-0400 Body height 157.5 cm Sabrina Dee MD, MPH Work Phone: [facility] 12-16-2021 11:53-0400 Body mass index (BMI) [Ratio] 22.5 kg/m2 Sabrina Dee MD, MPH Work Phone: [facility] 12-16-2021 11:53-0400 Body weight 55.79 kg Sabrina Dee MD, MPH Work Phone: [facility] 12-16-2021 11:53-0400 Diastolic blood pressure 72 mm[Hg] Sabrina Dee MD, MPH Work Phone: [facility] 12-16-2021 11:53-0400 Heart rate 80 /min Sabrina Dee MD, MPH Work Phone: [facility] 12-16-2021 11:53-0400 SaO2% (BldA) [Mass fraction] 98 % Sabrina Dee MD, MPH Work Phone: [facility] 12-16-2021 11:53-0400 Systolic blood pressure 118 mm[Hg] Sabrina Dee MD, MPH Work Phone: [facility] 10-09-2021 20:00-0400 Body temperature 98.3 [degF] [facility] 10-09-2021 20:00-0400 Diastolic blood pressure 68 mm[Hg] [facility] 10-09-2021 20:00-0400 Heart rate 86 /min [facility] 10-09-2021 20:00-0400 Respiratory rate 20 /min [facility] 10-09-2021 20:00-0400 SaO2% (BldA) [Mass fraction] 100 % [facility] 10-09-2021 20:00-0400 Systolic blood pressure 110 mm[Hg] [facility] 10-09-2021 14:19-0400 Body height 157.48 cm [facility] 10-09-2021 14:19-0400 Body weight 56.69 kg [facility] 10-04-2021 19:00-0400 Diastolic blood pressure 66 mm[Hg] [facility] 10-04-2021 19:00-0400 Heart rate 72 /min [facility] 10-04-2021 19:00-0400 Respiratory rate 16 /min [facility] 10-04-2021 19:00-0400 SaO2% (BldA) [Mass fraction] 96 % [facility] 10-04-2021 19:00-0400 Systolic blood pressure 110 mm[Hg] [facility] 10-04-2021 15:16-0400 Body temperature 97.9 [degF] [facility] 10-04-2021 15:15-0400 Body height 157.48 cm [facility] 10-04-2021 15:15-0400 Body weight 54.5 kg [facility] 09-25-2021 19:58-0400 Heart rate 82 /min [facility] 09-25-2021 18:04-0400 Body temperature 98.1 [degF] [facility] 09-25-2021 18:00-0400 Body height 157.48 cm [facility] 09-25-2021 18:00-0400 Body weight 55.5 kg [facility] 09-25-2021 18:00-0400 Diastolic blood pressure 107 mm[Hg] [facility] 09-25-2021 18:00-0400 Respiratory rate 18 /min [facility] 09-25-2021 18:00-0400 SaO2% (BldA) [Mass fraction] 98 % [facility] 09-25-2021 18:00-0400 Systolic blood pressure 141 mm[Hg] [facility] 08-11-2021 18:12-0400 Heart rate 86 /min [facility] 08-11-2021 18:00-0400 Diastolic blood pressure 69 mm[Hg] [facility] 08-11-2021 18:00-0400 Respiratory rate 20 /min [facility] 08-11-2021 18:00-0400 SaO2% (BldA) [Mass fraction] 98 % [facility] 08-11-2021 18:00-0400 Systolic blood pressure 114 mm[Hg] [facility] 08-11-2021 16:06-0400 Body height 170.18 cm [facility] 08-11-2021 16:06-0400 Body mass index (BMI) [Ratio] 19.6 kg/m2 [facility] 08-11-2021 16:06-0400 Body temperature 97.9 [degF] [facility] 08-11-2021 16:06-0400 Body weight 57 kg [facility] 03-19-2021 14:30-0500 Body height 157.48 cm Marya Ginty Other [facility] [place] Other 03-19-2021 14:30-0500 Body mass index (BMI) [Ratio] 24.69 kg/m2 Marya Ginty Other [facility] [place] Other 03-19-2021 14:30-0500 Body temperature 96 [degF] Marya Ginty Other [facility] Other 03-19-2021 14:30-0500 Body weight 61.24 kg Marya Ginty Other [facility] Other 03-19-2021 14:30-0500 Respiratory rate 63 /min Marya Almonte Other [employer] Other 03-19-2021 14:30-0500 SaO2% (BldA) [Mass fraction] 97 % Marya Almonte Other [employer] Other 03-26-2020 21:05-0500 Pulse Oximetry 100 % [facility] [place] 03-26-2020 21:01-0500 BP Diastolic 68 mm[Hg] [facility] [place] 03-26-2020 21:01-0500 BP Systolic 152 mm[Hg] [facility] [place] 03-26-2020 17:32-0500 BMI (Body Mass Index) 22.86 kg/m2 [facility] 03-26-2020 17:32-0500 Body weight 56.7 kg [place], [place] 03-26-2020 17:32-0500 Height 157.5 cm [place] 03-26-2020 17:32-0500 Pulse (Heart Rate) 90 /min [facility] [place] 03-26-2020 17:32-0500 Respiratory Rate 18 /min [facility] [place] 03-26-2020 12:39-0500 Body Temperature 98.71 [degF] [facility] [place] 08-25-2019 08:30-0400 Body Temperature 98.01 [degF] [facility] [place] 08-25-2019 08:30-0400 BP Diastolic 75 mm[Hg] Rajeev [facility] [place] , [place] 08-25-2019 08:30-0400 BP Systolic 117 mm[Hg] Rajeev [facility] [place] 08-25-2019 08:30-0400 Pulse (Heart Rate) 84 /min Rajeev Alejandrina [facility] [place] 08-25-2019 08:30-0400 Pulse Oximetry 97 % Raje[facility] [place] 08-25-2019 08:30-0400 Respiratory Rate 16 /min [facility] [place] 08-25-2019 05:30-0400 BMI (Body Mass Index) 25.88 kg/m2 Rajeev Alejandrina [facility], [place] 08-25-2019 05:30-0400 Body weight 64.18 kg Rajeev [facility] , [place] 08-22-2019 16:00-0400 Height 157.5 cm Rajeev [place], [place] 03-04-2018 13:09-0500 BP Diastolic 69 mm[Hg] [facility] 03-04-2018 13:09-0500 BP Systolic 108 mm[Hg] [facility] 03-04-2018 13:09-0500 Pulse (Heart Rate) 79 /min [facility] 03-04-2018 13:09-0500 Pulse Oximetry 99 % [facility] 03-04-2018 13:09-0500 Respiratory Rate 16 /min [facility] 03-04-2018 11:01-0500 BMI (Body Mass Index) 22.86 kg/m2 [facility] 03-04-2018 11:01-0500 Body Temperature 98.6 [degF] [facility] 03-04-2018 11:01-0500 Height 157.5 cm [facility] 03-04-2018 11:01-0500 Weight 56.7 kg [facility] 08-24-2017 20:58-0400 BP Diastolic 64 mm[Hg] [facility] 08-24-2017 20:58-0400 BP Systolic 126 mm[Hg] Errol [facility] 08-24-2017 20:58-0400 Pulse (Heart Rate) 67 /min [facility] 08-24-2017 20:58-0400 Pulse Oximetry 98 % [facility] 08-24-2017 20:58-0400 Respiratory Rate 18 /min [facility] 08-24-2017 13:41-0400 BMI (Body Mass Index) 21.58 kg/m2 [facility] 08-24-2017 13:41-0400 Body Temperature 98.29 [degF] [facility] 08-24-2017 13:41-0400 Height 157.5 cm [facility] 08-24-2017 13:41-0400 Weight 53.52 kg Errol Walton [facility] 06-09-2017 09:32-0400 BP Diastolic 73 mm[Hg] Joana Vaughn [facility] 06-09-2017 09:32-0400 BP Systolic 106 mm[Hg] Joana Vaughn [facility] 06-09-2017 09:32-0400 Pulse (Heart Rate) 86 /min Joana Vaughn [facility] 06-09-2017 09:32-0400 Pulse Oximetry 99 % Joana Vaughn [facility] 06-09-2017 09:32-0400 Respiratory Rate 16 /min [facility] 06-09-2017 07:20-0400 BMI (Body Mass Index) 21.87 kg/m2 Joana [facility] 06-09-2017 07:20-0400 Body Temperature 98.4 [degF] Joana Vaughn [facility] 06-09-2017 07:20-0400 Height 157.5 cm Joana Vaughn [facility] 06-09-2017 07:20-0400 Weight 54.23 kg Joana Vaughn [facility] 05-15-2017 08:11-0500 Body Temperature 98.01 [degF] David Gibson [facility] 05-15-2017 08:11-0500 BP Diastolic 69 mm[Hg] David Gibson [facility] 05-15-2017 08:11-0500 BP Systolic 116 mm[Hg] David Paige [facility] 05-15-2017 08:11-0500 Pulse (Heart Rate) 76 /min David Paige [facility] 05-15-2017 08:11-0500 Pulse Oximetry 95 % David Gibson [facility] 05-15-2017 08:11-0500 Respiratory Rate 15 /min David Gibson [facility] 05-14-2017 12:58-0500 BMI (Body Mass Index) 21.95 kg/m2 David Gibson [facility] 05-14-2017 12:58-0500 Height 157.5 cm David Paige [facility] 05-14-2017 12:58-0500 Weight 54.43 kg David Gibson [facility] Encounters Encounter Date Encounter Type Care Provider Facility Start: 04-02-2023 End: 04-02-2023 Emergency department patient visit [facility] Work Phone: Start: 03-27-2023 End: 03-28-2023 Emergency department patient visit VIC BIRMINGHAM [facility] Start: 03-27-2023 End: 03-27-2023 Emergency department patient visit [facility] Start: 11-09-2022 End: 11-09-2022 Emergency department patient visit Nicole Posadas Facility:[facility] Start: 11-09-2022 End: 11-09-2022 Emergency department patient visit [facility] Work Phone: Start: 08-12-2022 ambulatory [facility] Facility:[facility] Start: 08-12-2022 End: 08-12-2022 Subsequent hospital visit by physician Sabrina Dee MD, MPH Work Phone: [facility] Start: 06-16-2022 ambulatory [facility] Facility:[facility] Start: 06-16-2022 End: 06-16-2022 Office outpatient visit 40 minutes Sabrina Dee MD, MPH Work Phone: [facility] [place] Comment on above: Osteoporosis without current pathological fracture, unspecified osteoporosis type (Primary Dx); Alcohol-induced chronic pancreatitis Start: 06-13-2022 End: 06-13-2022 ambulatory ARIC ARCINIEGA . Facility:[facility] Start: 03-29-2022 End: 03-29-2022 ambulatory ELENITA ROLLINS . Facility:[facility] Start: 03-22-2022 End: 03-22-2022 Emergency department patient visit Agustin Llanes Facility:[facility] Start: 03-22-2022 End: 03-22-2022 Emergency department patient visit [facility] Work Phone: Start: 03-19-2022 End: 03-19-2022 ambulatory MONIK PARKINSON . Facility:[facility] Start: 01-28-2022 ambulatory SABRINA hamiltonty:[facility] Start: 01-28-2022 End: 01-28-2022 Subsequent hospital visit by physician Sabrina Dee MD, MPH Work Phone: [facility] Start: 01-27-2022 ambulatory [facility] Facility:[facility] Start: 01-27-2022 End: 01-27-2022 Subsequent hospital visit by physician Sabrina Dee MD, MPH Work Phone: [facility] [place] Comment on above: Arrived Start: 01-15-2022 End: 01-15-[address] HELLEN KITCHEN . Facility:[facility] Start: 12-19-2021 End: 12-19-2021 Emergency department patient visit Robb Naylor [place] Facility:[facility] Start: 12-16-2021 ambulatory OTHER [facility] Facility:[facility] Start: 12-16-2021 End: 12-16-2021 Office outpatient [...] 10-04-2021 End: 10-04-2021 Emergency department patient visit [facility] Start: 09-30-2021 End: 09-30-2021 ambulatory NAT MAXWELL . Facility:[facility] Start: 09-25-2021 End: 09-25-2021 Emergency department patient visit [facility] Start: 09-17-2021 End: 09-17-[address] RAJEEV COATES Facility:[facility] Start: 08-26-2021 End: 08-26-2021 ambulatory NICK COY Facility:[facility] Start: 08-22-2021 End: 08-22-[address] TRI HANSON Facility:[facility] Start: 08-13-2021 End: 08-13-2021 ambulatory AGUSTIN MADRIGAL Facility:[facility] Start: 08-11-2021 End: 08-11-2021 Emergency department patient visit [facility] Start: 07-31-2021 End: 07-31-2021 ambulatory YANNI FRASER Facility:[facility] Start: 07-19-2021 End: 07-19-2021 ambulatory LYNNE PERDOMO Facility:[facility] Start: 03-19-2021 End: 03-19-2021 ambulatory Marya Almonte Other [employer] Other Start: 03-19-2021 Office outpatient visit 15 minutes Marya Garlandmlsandra [facility] Start: 05-22-2020 End: 05-22-2020 Orders Only Izabela Grant Work Phone: [facility] Start: 03-26-2020 Emergency department patient visit [facility] Start: 03-26-2020 End: 03-26-2020 Emergency department patient visit [facility] ED Comment on above: Acute biliary pancre atitis, unspecified complication status (Primary Dx) Start: 08-22-2019 End: 08-25-2019 Evaluation and management of inpatient [facility] Start: 08-22-2019 End: 08-25-2019 Evaluation and management of inpatient [facility] Work Phone: [facility] Comment on above: Acute pancreatitis, unspecified complication status, unspecified pancreatitis type (Primary Dx); Pain of upper abdomen Start: 03-08-2018 End: 03-09-2018 Evaluation and management of inpatient [facility] Start: 03-04-2018 End: 03-04-2018 Patient encounter procedure [facility] Start: 03-04-2018 End: 03-04-2018 Emergency department patient visit Keerthi Nguyen Work Phone: [facility] Comment on above: Acute on chronic see creatitis (HCC) (Primary Dx) Start: 08-24-2017 End: 08-24-2017 Emergency department patient visit [facility] Start: 08-24-2017 End: 08-24-2017 Emergency department patient visit Errol Walton Work Phone: [facility] Start: 06-09-2017 End: 06-09-2017 Emergency department patient visit ALEXANDER NICHOLS [facility] Start: 06-09-2017 End: 06-09-2017 Emergency department patient visit Joana Mendes Work Phone: [facility] Department Start: 05-14-2017 End: 05-15-2017 Patient encounter procedure ERIC [facility] Start: 05-14-2017 End: 05-15-2017 Emergency department patient visit David Gibson Work Phone: [facility] Medical Observation Procedures Date Procedure Procedure [...] RAJEEV TINOCO Start: 08-22-2019 VITAL SIGNS RAJEEV TINCOO Start: 08-22-2019 FULL CODE RAJEEV TINOCO Start: [...] MPH Work Phone: Start: 01-02-2012 Mammography Izabela skinner Start: 12-11-2011 Microscopic observat ion [Identifier] in Cervix by Cyto stain Keerthi Nguyen Plan of Treatment Date Care Activity Detail Author Start: 03-16-2023 End: 03-16-2023 Patient encounter procedure 03/16/2023 Office Visit Gastroenterology Sabrina Dee MD, MPH [address] [place], [place] [address] [address] [facility] Start: 11-07-2022 Influenza vaccination INFLUENZA VACCINE (Season Ended) [facility] Start: 09-25-2022 Lipid panel LIPID SCREENING [facility] Start: 07-29-2022 End: 06-17-2023 UPPER EUS UPPER EUS GI/Bronch Routine Alcohol-induced chronic pancreatitis Expected: 07/29/2022, Expires: 06/17/2023 [facility] Comment on above: Expected: 07/29/2022, Expires: 4 Start: 07-28-2022 End: 01-28-2023 Screening colonoscopy SCREENING COLONOSCOPY GI/Bronch Routine Encounter for screening colonoscopy Expected: 07/28/2022, Expires: 01/28/2023 [facility] Comment on above: Expected: 07/28/2022, Expires: 3 Start: 07-28-2022 End: 07-28-2022 Patient encounter procedure 07/28/2022 Appointment Endoscopy Julia Tyler MD [address] [address] [facility] Endoscopy Department Start: 06-16-2022 End: 12-16-2022 Screening colonoscopy SCREENING COLONOSCOPY GI/Bronch Routine Encounter for screening colonoscopy Expected: 06/16/2022, Expires: 12/16/2022 [facility] Comment on above: Expected: 06/16/2022, Expires: 3 Start: 06-16-2022 End: 06-16-2022 Patient encounter procedure 06/16/2022 Office Visit Gastroenterology Sabrina Dee MD, MPH [address] [place] [address] [facility] Start: 03-22-2022 Bacteria identified in Urine by Culture [facility] Start: 01-28-2022 End: 01-28-2022 Patient encounter procedure 01/28/2022 Appointment Endoscopy Sabrina Dee MD, MPH [address] [place] [address] [facility] Start: 01-28-2022 Subsequent hospital visit by physician 01/28/2022 Hospital Encounter Endoscopy Sabrina Dee MD, MPH [address] [place] [address] Arrived [facility] Comment on above: Arrived Start: 01-14-2022 End: 12-16-2022 UPPER EUS UPPER EUS GI/Bronch Routine Recurrent acute pancreatitis Expected: 01/14/2022, Expires: 12/16/2022 [facility] Comment on above: Expected: 01/14/2022, Expires: 3 Start: 12-16-2021 End: 12-16-2022 Bone density scan BONE DENSITY AXIAL (HIP, PELVIS, SPINE) Imaging Routine Recurrent acute pancreatitis History of smoking 25-50 pack years Expected: 12/16/2021, Expires: 12/16/2022 [facility] Comment on above: Expected: 12/16/2021, Expires: 3 Start: 11-07-2021 Influenza vaccination INFLUENZA VACCINE (#1) [facility] Start: 10-09-2021 CT of abdomen and pelvis without contrast CT abdomen pelvis wo [facility] Start: 10-09-2021 End: 10-09-2021 Emergency department patient visit Departed Emergency [facility] Start: 11-13-2020 COVID-19 VACCINE (3 - Booster for Pfizer series) COVID-19 VACCINE (3 - Booster for Pfizer series) [facility] Start: 11-08-2019 Influenza vaccination [place], [place] Start: 11-08-2019 Influenza vaccination given Sequential Influenza Vaccine (#1) [facility] Start: 06-21-2019 Administration of herpes zoster vaccine Zoster Vaccines (1 of 2) [facility] Start: 06-21-2019 Screening for malignant neoplasm of breast Breast cancer screen [place], [place] Start: 06-21-2019 Screening for malignant neoplasm of colon [place] Start: 06-21-2019 Screening for malignant neoplasm of lung LUNG CANCER SCREENING [facility] Start: 06-21-2019 Shingles Vaccine (1 of 2) Shingles Vaccine (1 of 2) [place] Start: 06-21-2019 Zoster vaccine hzv live for subcutaneous use ZOSTER (SHINGLES) VACCINE (1 of 2) [facility] Start: 11-07-2017 Influenza vaccination [facility] Start: 11-07-2016 Influenza vaccination SEQUENTIAL INFLUENZA VACCINE (#1) [facility] Start: 12-10-2014 Screening for malignant neoplasm of cervix PAP SMEAR [facility] Start: 2014 Screening for malignant neoplasm of colon COLORECTAL CANCER SCREENING DISCUSSION [facility] Start: 01-01-2013 Screening for malignant neoplasm of breast MAMMOGRAM SCREENING DISCUSSION [facility] Start: 01-01-2013 Screening mammography Mammogram [facility] Start: 2009 Lipid panel Lipid screen [place], [place] Start: 1990 Screening for malignant neoplasm of cervix [facility] Start: 1988 DTaP/Tdap/Td vaccine (1 - Tdap) DTaP/Tdap/Td vaccine (1 - Tdap) [place] Start: 1988 Third diphtheria, tetanus and acellular pertussis (DTaP) vaccination TDAP (ADULT) [facility] Start: 06-21-1987 Hepatitis C antibody, confirmatory test Hepatitis C Screening [facility] Start: 06-21-1987 Tetanus vaccination TETANUS [facility] Start: 1985 COVID-19 Vaccine (1 of 2) COVID-19 Vaccine (1 of 2) [facility] Start: 1984 HIV screening [facility] Start: 06-21-1975 Pneumococcal 0-64 years Vaccine (1 of 1 - PPSV23) Pneumococcal 0-64 years Vaccine (1 of 1 - PPSV23) [place], [place] Start: 06-21-1975 PNEUMOCOCCAL VACCINE SERIES (1 - PCV) PNEUMOCOCCAL VACCINE SERIES (1 - PCV) [facility] Start: 1972 History and physical examination, annual for health maintenance Wellness Visit [facility] Start: 1969 Hepatitis B vaccination HEP B VACCINE (1 of 3 - 3-dose series) [facility] Start: 1969 Hepatitis C screening [facility] Start: 1969 Tetanus vaccination [facility] CBC auto differential CBC auto d ifferential Lab Routine Daily until discontinued starting 08/23/2019, 3 completed [place], [place] Comment on above: Daily until discontinued starting 2019, [address] ABDOMEN PELVIS W IV CONTRAST Additional Contrast? None CT ABDOMEN PELVIS W IV CONTRAST Additional Contrast? None [facility] 3[facility] Subclasses IgG Subclasses A dd-On 05/14/2017 2:06 PM BRIE [facility] Initiate Oxygen Therapy Protocol Initiate Oxygen Therapy Protocol Respiratory Care Routine Daily until discontinued starting 08/22/2019 [facility]AMES Comment on above: Daily until discontinued starting 2019 Lipase Lipase Lab Routi ne Daily until discontinued starting 08/23/2019, 3 completed [facility] JAMES Comment on above: Daily until discontinued starting 2019, 3 completed Patient Education [facility] Work Phone: Patient referral [facility] Work Phone: End: 08-22-2019 Pulse Oximetry Spot Check Pulse Oximetry Spot Check Respiratory Care Routine One Time for 1 Occurrences starting 08/22/2019 until 08/22/2019 [facility] Comment on above: One Time for 1 Occurrences starting 08/07 until 08/22/2019 Screening colonoscopy SCREENING COLONOSCOPY GI/Bronch Routine Encounter for screening colonoscopy 01/28/2022 9:43 AM [facility] Immunizations Immunization Date Immunization Notes Care Provider Fa joy 12-23-2015 influenza, injectabl e, quadrivalent, contains preservative Sabrina Dee MD, MPH Work Phone: [facility] 12-23-2015 influenza virus vaccine, unspecified formulation Sabrina Dee MD, MPH Work Phone: [facility] 12-15-2014 influenza virus vaccine, unspecified formulation Sabrina Dee MD, MPH Work Phone: [facility] Payers Date Payer Category Payer Self-pay [id number] 2019 Unknown [facility] xxxxxxxxxxx 2019-Present [phone] CLAIMS DEPARTMENT [address] [place] [address] xxxxxxxxxxx [id number] 2017 Unknown [id number] 2017 Unknown 1969 Unknown [id number] 2.16.840.1.585071.3.579.2.900 1969 Unknown [id number] 2.16.840.1.783504.3.579.2.900 1969 Unknown [id number] 2.16.840.1.092337.3.579.2.900 1969 Unknown [id number] 2.16.840.1.526824.3.579.2.900 1969 Unknown [id number] 2.16.840.1.973784.3.579.2.900 1969 Unknown [id number] 2.16.840.1.976236.3.579.2.173 1969 Unknown [id number] 2.16.840.1.400200.3.579.2.173 1969 Unknown [id number] 2.16.840.1.734765.3.579.2.593 1969 Unknown [id number] 2.16.840.1.350006.3.579.2.593 1969 Unknown [id number] 2.16.840.1.913968.3.579.2.593 1969 Unknown [id number] 2.16.840.1.922792.3.579.2.593 1969 Unknown [id number] 2.16.840.1.531648.3.579.2.593 1969 Unknown [id number] 2.16.840.1.255628.3.579.2.593 1969 Unknown [id number] 2.16.840.1.681446.3.579.2.593 1969 Unknown [id number] 2.16.840.1.041551.3.579.2.593 1969 Unknown [id number] 2.16.840.1.607692.3.579.2.593 1969 Unknown [id number] 2.16.840.1.906458.3.579.2.593 1969 Unknown [id number] 2.16.840.1.588408.3.579.2.593 1969 Unknown [id number] 2.16.840.1.231626.3.579.2.593 1969 Unknown [id number] 2.16.840.1.972798.3.579.2.593 1969 Unknown [id number] 2.16.840.1.616520.3.579.2.593 1969 Unknown [id number] 2.16.840.1.045255.3.579.2.594 1969 Unknown [id number] 2.16.840.1.011003.3.579.2.594 1969 Unknown [id number] 2.16.840.1.842725.3.579.2.594 1969 Unknown [id number] 2.16.840.1.807782.3.579.2.594 1969 Unknown [id number] 2.16.840.1.864724.3.579.2.594 1969 Unknown [id number] 2.16.840.1.556061.3.579.2.594 1969 Unknown [id number] 2.16.840.1.362163.3.579.2.1286 1969 Unknown [id number] 2.16.840.1.646316.3.579.2.1286 1959 Medicaid [id number] 1959 Unknown [id number] Unknown [id number] 2.16.840.1.783688.3.579.2.531 Unknown [id number] 2.16.840.1.972866.3.579.2.531 Unknown [id number] 2.16.840.1.242214.3.579.2.531 Social History Date Type Detail Facility Start: 06-09-2017 End: 12-16-2021 Tobacco smoking status AKIS Current every day smoker [facility] History of tobacco use [facility] Start: 06-09-2017 End: 12-16-2021 Cigarettes smoked current (pack per day) - Reported [facility] Start: 1970 Sex Assigned At Not on file O [facility] Start: 08-22-2019 End: 08-12-2022 Alcohol intake Current non-drinker of alcohol (finding) [facility] Exposure to SARS-CoV -2 (event) Unable to assess [facility] Start: 03-08-2018 End: 12-16-2021 Tobacco use and exposure Never used [facility] Start: 07-24-2014 Tobacco Comment Smokes < 1/2 p pd, smoker for 30+ years [facility] Start: 07-24-2014 Alcohol Comment Prior heavy dr carrillo, quit 8 years ago [facility] Sex Assigned At Sex Assigned At [facility] Other Start: 09-25-2021 End: 11-09-2022 Tobacco smoking status NHIS Smoker (finding) [facility] Start: 1970 Sex Assigned At Female F [facility] Start: 05-09-2016 Alcohol Comment been sober for 9 years [facility] Start: 04-02-2023 Tobacco smoking stat us AKIS Current some day smoker [facility] Clinical Notes 10-08-2019 to 08-12-2022 Sabrina Dee MD, MPH - 08/12/2022 10:30 AM Ruiz Dee MD, MPH - 08/12/2022 10:30 AM Nicloe Fuller RN - 08/12/2022 10:30 AM Nicole Fuller RN - 08/12/2022 10:30 AM EDT Note Date & Type Note Facility 08-12-2022 History and physical note ENDOSCOPIC PREPROCEDURE HISTORY AND PHYSICAL HISTORY OF PRESENT ILLNESS: Chioma Rainey is a 52 y.o. female seen in the pre-procedure area at [facility]. The indication for endoscopic evaluation includes: [...] Laterality: N/A; Surgeon: Jose Ty MD; Location: [facility] EGD W/ ULTRASOUND N/A 02/14/2015 Laterality: N/A; Surgeon: Pineda Troy MD; Location: [facility] CHOLECYSTECTOMY CHOLECYSTECTOMY, LAPAROSCOPIC HYSTERECTOMY MEDICATIONS: Current Outpatient Medications Medication Instructions Amitriptyline (ELAVIL) 25 mg, Oral, DAILY AT BEDTIME Ergocalciferol (VITAMIN D2) 50,000 Units, Oral, WEEKLY omeprazole (PRILOSEC) 20 mg, Oral, DAILY Pancreatic enzymes (Creon) [address] Particles capsule 48,000 Units, Oral, 3 TIMES DAILY WITH MEALS Current Outpatient Medications: omeprazole [address] capsule, Take 1 capsule by mouth daily., Disp: 30 capsule, Rfl: 6 amitriptyline 10 MG tablet, Take 2.5 tablets by mouth at bedtime., Disp: 30 tablet, Rfl: 11 ergocalciferol 1.25 MG (57216 UT) capsule, Take 1 capsule by mouth once a week for 8 doses., Disp: 8 capsule, Rfl: 0 Pancreatic enzymes (Creon) 84970-[address] Particles capsule, Take 2 [...] Monitored Anesthesia Care. Sabrina Dee MD, MPH [facility] 08-12-2022 History and physical note ENDOSCOPIC PREPROCEDURE HISTORY AND PHYSICAL HISTORY OF PRESENT ILLNESS: Chioma Rainey is a 52 y.o. female seen in the pre-procedure area at [facility]. The indication for endoscopic evaluation includes: Alcohol-induced chronic pancreatitis PAST MEDICAL HISTORY: Past Medical History: Diagnosis Date Anemia Depression H. pylori infection Neutrophilic leukocytosis Pancreatitis SURGICAL HISTORY: Past Surgical History: Procedure Laterality Date EGD W/ ULTRASOUND N/A 12/01/2019 Laterality: N/A; Surgeon: Sabrina Dee MD, MPH; [facility] EGD W/ ULTRASOUND N/A 04/23/2016 Laterality: N/A; Surgeon: Pineda Troy MD; [facility] EGD W/ ULTRASOUND N/A 01/23/2016 Laterality: N/A; Surgeon: Pineda Troy MD; Location: [facility] CHANGE TUBE GASTROSTOMY N/A 08/20/2015 Laterality: N/A; Surgeon: Yanni Alonzo MD; [facility] EGD DIAGNOSTIC N/A 06/25/2015 Laterality: N/A; Surgeon: Pineda Troy MD; Location: [facility] EGD W/ PLACEMENT OR REPLACEMENT PEG N/A 06/15/2015 Laterality: N/A; Surgeon: Curry Wilson MD; Location: [facility] EGD W/ INSERTION TUBE OR CATHETER N/A 06/13/2015 Laterality: N/A; Surgeon: Jose Ty MD; [facility] EGD W/ ULTRASOUND N/A 02/14/2015 Laterality: N/A; Surgeon: Pineda Troy MD; [facility] CHOLECYSTECTOMY CHOLECYSTECTOMY, LAPAROSCOPIC HYSTERECTOMY MEDICATIONS: Current Outpatient Medications Medication Instructions Amitriptyline (ELAVIL) 25 mg, Oral, DAILY AT BEDTIME Ergocalciferol (VITAMIN D2) 50,000 Units, Oral, WEEKLY omeprazole (PRILOSEC) 20 mg, Oral, DAILY Pancreatic enzymes (Creon) 92738-[address] units [address] Particles capsule 48,000 Units, Oral, 3 TIMES DAILY WITH MEALS Current Outpatient Medications: omeprazole [address] capsule, Take 1 capsule by mouth daily., Disp: 30 capsule, Rfl: 6 amitriptyline 10 MG tablet, Take 2.5 tablets by mouth at bedtime., Disp: 30 tablet, Rfl: 11 ergocalciferol 1.25 MG (37540 UT) capsule, Take 1 capsule by mouth once a week for 8 doses., Disp: 8 capsule, Rfl: 0 Pancreatic enzymes (Creon) [address]83-[address] Particles capsule, Take 2 [...] MD, MPH documented in this encounter [facility] 08-12-2022 Nurse Note PT Given discharge paperwork and reviewed per MD and nurse. Sales Warehouse Driver available.Diet and restrictions reviewed as well. Venous access removed no complications noted. Ok to d/c Anesthesia and procedural MD. documented in this encounter [facility] 08-12-2022 Nurse Surgical operation note PT Given discharge paperwork and reviewed per MD and nurse. Sales Warehouse Driver available.Diet and restrictions reviewed as well. Venous access removed no complications noted. Ok to d/c Anesthesia and procedural MD. [facility] 06-16-2022 History of Presen t illness Narrative This Iuss Analyst verified the patients name and date [...] amitriptyline 10 MG tablet, ergocalciferol 1.25 MG (08993 UT) capsule, and Pancreatic enzymes (Creon) 87682-[address] units Cap [address] Particles capsule. Allergies: She [...] Hepatology, and Nutrition documented in this encounter [facility] 06-16-2022 Instructions Sabrina Dee MD, MPH - 06/16/2022 11:00 AM EDT Schedule EUS celiac plexus block; EGD dilation Referral to endocrinology; appointment to be scheduled Return to clinic in Mar 2023 Smoking cessation Vitamin D 2000 units daily Calcium supplement 1 gram daily Omeprazole (Prilosec) 20mg daily, take at least 30 mins before dinner documented in this encounter [facility] 01-28-2022 Miscellaneous Notes Attending physician in room speaking with patient and family on results. Attending physician ok for discharge. Pt ambulated unassisted with steady gait and balance. IV removed and discharge instructions given with verbal ok by patient of understanding. Pt discharged via w/c with shuttle van driver from unit. Dr dee aware patient ready for results Updated dr goins on patient pain and received new orders documented in this encounter [facility] 01-28-2022 Note Formatting of this n ote might be different from the original. Attending physician in room speaking with patient and family on results. Attending physician ok for discharge. Pt ambulated unassisted with steady gait and balance. IV removed and discharge instructions given with verbal ok by patient of understanding. Pt discharged via w/c with shuttle van driver from unit. [facility] 01-28-2022 Note Formatting of this n ote might be different from the original. Dr dee aware patient ready for results [facility] 01-28-2022 Note Formatting of this n ote might be different from the original. Updated dr goins on patient pain and received new orders [facility] 01-28-2022 History and physical note ENDOSCOPIC PREPROCEDURE HISTORY AND PHYSICAL HISTORY OF PRESENT ILLNESS: Chioma Rainey is a 51 y.o. female seen in the preoprocedure area at [facility]. The indication for endoscopic evaluation includes: [...] 50,000 Units, Oral, WEEKLY Pancreatic enzymes (Creon) [address] Particles capsule 48,000 Units, Oral, 3 TIMES DAILY WITH MEALS Current Outpatient Medications: amitriptyline 10 MG tablet, Take 2.5 tablets by mouth at bedtime., Disp: 30 tablet, Rfl: 11 Pancreatic enzymes (Creon) 08448-[address] Particles capsule, Take 2 capsules by mouth 3 times daily with meals., Disp: 180 capsule, Rfl: 0 ergocalciferol 1.25 MG (23054 UT) capsule, Take 1 capsule by mouth [...] Monitored Anesthesia Care. Sabrina Dee MD, MPH [facility] 01-28-2022 History and physical note ENDOSCOPIC PREPROCEDURE HISTORY AND PHYSICAL HISTORY OF PRESENT ILLNESS: Chioma Rainey is a 51 y.o. female seen in the preoprocedure area at [facility]. The indication for endoscopic evaluation includes: Recurrent acute pancreatitis PAST MEDICAL HISTORY: Past Medical History: Diagnosis Date Anemia Depression H. pylori infection Neutrophilic leukocytosis Pancreatitis SURGICAL HISTORY: Past Surgical History: Procedure Laterality Date EGD W/ ULTRASOUND N/A 12/01/2019 Laterality: N/A; Surgeon: Sabrina Dee MD, MPH; Location: [facility] EGD W/ ULTRASOUND N/A 04/23/2016 Laterality: [...] 50,000 Units, Oral, WEEKLY Pancreatic enzymes (Creon) 06181-[address] Particles capsule 48,000 Units, Oral, 3 TIMES DAILY WITH MEALS Current Outpatient Medications: amitriptyline 10 MG tablet, Take 2.5 tablets by mouth at bedtime., Disp: 30 tablet, Rfl: 11 Pancreatic enzymes (Creon) [address] Particles capsule, Take 2 capsules by mouth 3 times daily with meals., Disp: 180 capsule, Rfl: 0 ergocalciferol 1.25 MG (80889 UT) capsule, Take 1 capsule by mouth [...] MD, MPH documented in this encounter [facility] 12-16-2021 History of Presen t illness [...] 10 MG tablet and Pancreatic enzymes (Creon) 72978-[address] units [address] Particles capsule. Allergies: She [...] in 6 months documented in this encounter [facility] 12-16-2021 Instructions Sabrina Dee MD, MPH - 12/16/2021 11:30 AM EDT Schedule DEXA scan Schedule colonoscopy Schedule EUS Start vitamin D 1,000 units daily. Start calcium supplements 1g daily RTC in 6 months documented in this encounter [facility] 03-19-2021 Evaluation note Encounter Date Diagnosis [...] Patient care instructions given in writting by [facility] Care At Home document [employer] Other 08-01-2020 History general Narrative - Reported* Type Description Date Medical History chronic pancreatitis Medical History chronic pain Medical History former alcoholic Surgical History [facility]- [facility]2019 Surgical History GALLBLADDER Surgical History COLON-[facility] Hospitalization History see above [employer] Other Evaluation noteNo assessment information available [facility] Work Phone: Evalucmgre note* Diagnosis Recurrent acute pancreatitis- Primary Acute pancreatitis History of smoking 25-50 pack years Alcohol-induced chronic pancreatitis Chronic pancreatitis Epigastric pain Abdominal pain, epigastric Encounter for screening colonoscopy Special screening for malignant neoplasms, colon [facility] Recurrent acute pancreatitis Acute pancreatitis History of smoking 25-50 pack years Encounter for screening colonoscopy Special screening for malignant neoplasms, colon [facility] Diagnosis Other osteoporosis without current pathological fracture- Primary Recurrent acute pancreatitis Acute pancreatitis Encounter for screening colonoscopy Special screening for malignant neoplasms, colon [facility] Diagnosis Encounter for screening colonoscopy Special screening for malignant neoplasms, colon [facility] Diagnosis Osteoporosis without current pathological fracture, unspecified osteoporosis type- Primary Alcohol-induced chronic pancreatitis Chronic pancreatitis [facility] Diagnosis Alcohol-induced chronic pancreatitis Chronic pancreatitis [facility] Additional Instructions Fluids Phenergan if needed for nausea vomiting Bentyl as needed for abdominal pain Follow-up with your GI specialist call Thursday for appointment Return here if any problems persist [facility] Discharge instructions Additional Instructions Clear with diet today and advance as tolerated Push fluids Percocet if needed for severe pain Zofran or Phenergan if needed for nausea vomiting Keep your doctor's appointment tomorrow as planned Return here if you develop any increased pain, vomiting unable to be controlled, fevers, chills or any other [facility] Work Phone: Discharge Instructions * [...] Log into your personal health record on [email or web address] and enter E907 in the Education box to learn more about Abdominal Pain: Care Instructions. Current as of: August 03, 2015 Content Version: 11.2 0389-2782 [employer]. Care instructions adapted under license by your healthcare professional. If you have questions about a medical condition or this instruction, always ask your healthcare professional. [employer] disclaims any warranty or liability for your [...] Log into your personal health record on [email or web address] and enter H591 in the Education box to learn more about Nausea and Vomiting: Care Instructions. Current as of: August 03, 2015 Content Version: 11.2 9044-5681 [employer]. Care instructions adapted under license by your healthcare professional. If you have questions about a medical condition or this instruction, always ask your healthcare professional. [employer] disclaims any warranty or liability for your [...] review at your convenience for more information: [email or web address] in this encounter* Discharge Instr - Other Orders - Poncho Sparks RN - 05/15/2017 1:20 PM EST Patient voices desire to leave hospital AMA. IV removed. Patient is ambulatory in care of spouse. [facility] hospitalist notified. in this encounter* Montse Khan CNP - 08/24/2017 Seek medical attention if you have worsening symptoms or other concerns. Please follow up with your family doctor or one of your choosing. You may find a provider through the [facility] Physician Referral Service by calling [phone] ([phone]) or by visiting [email or web address] Chioma, Thank You for choosing [facility]! The following attachments cannot be sent through Care Everywhere. * Nausea and Vomiting ([place]) * Gastroenteritis ([place]) * Diarrhea ([place]) in this encounter The following attachments cannot be sent through Care Everywhere. * Pancreatitis ([place]) in this encounter* Instructions* Laura Meyer RN - 08/25/2019 Patient Instructions: Activity: activity as tolerated Diet: encourage fluids GI specialist in 2 weeks. * Attachments The following attachments cannot be sent through Care Everywhere. * Pancreatitis: Chronic Diet ([place]) * Pancreatitis ([place]) documented in this encounter Assessments Diagnosis Epigastric [...] Documents on File Type Date Recorded Patient Marketing Development Representative Expl anation Advance Directives and Living Will Power of Scrubber Operator Latest Code Status on File Code Status Date Activated Date Inactivated Comments Full Code 08/22/2019 4:27 PM Documents on File Type Date Recorded Patient Marketing Development Representative Expl anation Advance Directives and Livin g [...] Documents on File Type Date Recorded Patient Marketing Development Representative Expl anation ACP-Advance Directive ACP-Power of Scrubber Operator Latest Code Status on File Code [...] patient allergies, toradol is contraindicated. Called Dr. Hguhes back, television writer explained that patient is tolerating dilaudid. Dr. Hughes ordered dose of dilaudid increased from 0.25 mg to 0.5 mg q4 hrs PRN. * Ladan Stearns RN - 08/24/2019 1:27 PM EDT Patient walking in hallway at this time. * Ladan Stearns RN - 08/24/2019 9:14 AM EDT Lube Technician to patients bedside at this time to reassess pain. Patient sitting in chair, appears restless and is tearful. Patient states Dilaudid did not help the pain, states there is nothing television writer can do as she deals with this often. Will continue to monitor patient. * aJx Carley Madison, INSOLE BOTTOM FILLER - CLINICAL ENGINEERING DIRECTOR - 08/24/2019 7:58 AM EDT Progress Note [...] Scheduled for EGD in September with her [facility] Discharge Planning -- Home when stable Carley Camara APRN, CHOKER HOOKER-C Associated attestation - Rajeev Tinoco MD - 08/24/2019 5:30 PM EDT Attending Supervising Physician s Attestation Statement I have personally evaluated and examined the patient [id number] in conjunction with the nurse practitioner. I [...] Examined and Reviewed plan of care with CHOKER HOOKER. Directions and discussion about care and plans. [...] [place] RN - 08/23/2019 4:40 PM EDT Lube Technician contacted Dr. Tinoco regarding update that patient [...] he would not give order for Benedryl. Lube Technician let nurse know that if patient's c/o ithcing and redness doesn't improve in an hour, that television writer will be calling back to update physician. * Brie Birmingham RN - 08/23/2019 3:20 PM EDT Lube Technician called into patient's room d/t patient c/o itching, feeling hot , and slight redness noted to BUE and face. Lube Technician contacted Dr. Tinoco office and left message with his nurse, asking for IV Benedryl and d/c of Lovenox. Patient thinks she may have had reaction to Lovenox in the past, and thatis the only other med she is currently taking here other than Dilaudid. Lube Technician did once again verify that patient usually [...] medically stable. Patient lives with her in [place]. She uses no DME and has no outside services currently in place. Patient provides for her own transportation needs and manages her medications. She is independent with her ADL's. PCP is [facility]. Patient has [employer] and denies needing further assistance with the cost of her medications. Discharge plan is home with no additional services at this time. Patient is a 'Full Code' status. She has no healthcare directives and voices that she is not interested in pursuing these documents further. ACCESS SPEC to monitor and assist with discharge planning [...] [place] RN - 08/23/2019 9:05 AM EDT Lube Technician made CLINICAL ENGINEERING DIRECTOR aware that patient is vomiting at this time since clear liquid diet added. Lube Technician to give Zofran and place patient back [...] weight loss, but states of weight gain. [id number] Discussed need to re-zero Pt bed to verify gain. She declined education needs states she has a GI doctor and RDN at the [facility]. Reports following the guidelines they recommended. States [...] 5. Fluid Accumulation-No significant fluid accumulation, 6. Pricing Strategist Strength-Not measured Nutrition Risk Level: Moderate Nutrient Needs: Estimated Daily Total Kcal: 3411-4332(20-23/kg) Estimated Daily Protein (g): 65-75g(1.3-1.5g/kg) Estimated Daily [...] weight gain/23%, recommend to re-zero Pt bed [place] Body Wt: 110 lb (49.9 kg), % [place] Body 129% BMI Classification: BMI 25.0 - [...] Nausea or Vomiting, Patient/Family Education Contact Number: [phone] * Carley Camara, INSOLE BOTTOM FILLER - CLINICAL ENGINEERING DIRECTOR - 08/23/2019 7:30 AM EDT Progress Note [...] Daily Discharge Plan--later today/tomorrow Carley Camara APRN, CHOKER HOOKER-C Associated attestation - Rajeev Tinoco MD - 08/23/2019 12:04 PM EDT Attending Supervising Physician s Attestation Statement I have personally evaluated and examined the patient sagh-vs-agcm in conjunction with the nurse practitioner. I [...] Examined and Reviewed plan of care with CHOKER HOOKER. Directions and discussion about care and plans. [...] of running a code on another patient; supervisor white sugar states that report will be called when able. Lube Technician unable to get ahold of staff inED to put patient in auto parts manager so that television writer can transfer patient over to [facility]. [...] Diagnoses Alcohol-induced chronic pancreatitis Procedures UPPER EUS OH ESOPHAGOGASTRODUODENOSCOPY US SCOPE W/ADJ STRXRS Sabrina Dee MD, MPH [address] [place] [phone] Referral ID Status Reason Start Date Expiration Date V isits Requested Visits Authorized [id number] New Request 06/16/2022 07/11/2023 1 1 Specialty Diagnoses / Procedures Referred By Zia espinal Referred To Contact Endocrinology, Diabetes & Metabolism Diagnoses Osteoporosis without current pathological fracture, unspecified osteoporosis type Sabrina Dee MD, MPH [address] [place] [phone] Referral ID Status Reason Start Date Expiration Date V isits Requested Visits Authorized [id number] New Request 06/16/2022 07/11/2023 1 1 Specialty Diagnoses / Procedures Referred By Zia espinal Referred To Contact Diagnoses Encounter for screening colonoscopy Procedures SCREENING COLONOSCOPY [place] COLON CA SCRN NOT HI RSK IND Sabrina Dee MD, MPH [address] [place] [phone] Referral ID Status Reason Start Date Expiration Date V isits Requested Visits Authorized [id number] New Request 12/16/2021 01/10/2023 1 1 Specialty Diagnoses / Procedures Referred By Contac t Referred To Contact Diagnoses Recurrent acute pancreatitis History of smoking 25-50 pack years Procedures BONE DENSITY AXIAL (HIP, PELVIS, SPINE) Sabrina Dee MD, MPH [address] [place] [phone] Referral ID Status Reason Start Date Expiration Date V isits Requested Visits Authorized [id number] New Request 12/16/2021 01/10/2023 1 1 Specialty Diagnoses / Procedures Referred By Contac t Referred To Contact Diagnoses Recurrent acute pancreatitis Procedures UPPER EUS OH EGD US GUIDED TRANSMURAL INJXN/FIDUCIAL MARKER Sabrina Dee MD, MPH [address] [place] [phone] Referral ID Status Reason Start Date Expiration Date V isits Requested Visits Authorized [id number] New Request 12/16/2021 01/10/2023 1 1 Additional Source Comments ED Notes - Vickie Dill RN - 06/09/2017 10:40 AM EDTED Notes - Vickie Dill RN - 06/09/2017 9:51 AM EDTED Attestation Note - oJana Mendes MD - 06/09/2017 9:18 AM EDT [...] the patient. I discussed the patient with CHOKER HOOKER/PA. I agree with the CHOKER HOOKER/PA treatment plan. I agree with the CHOKER HOOKER/PA plan of care. I agree with the CHOKER HOOKER/PA dispo as documented. 46-year-old female presents with abdominal pain. She states I have chronic pancreatitis and this feels like a flareup . States that she took her usual Phenergan and [place] with minimal relief so came the emergency [...] She is going to follow with her health counselor with whom she has an appointment on [...] different from the original. ED PROVIDER NOTE [facility] EMERGENCY DEPARTMENT NAME: Chioma Rainey AGE: 46 y.o. : 1970 VISIT DATE: 06/09/2017 CSN: [id number] PCP: Alexander Nichols MD Chief Complaint Patient [...] Phenergan suppository. She states that she took [place] last night. Last dose of [place] was around 9 PM last night. She [...] Procedure: EGD; Surgeon: Romain Dumont MD; Location: [facility]; Service: HYSTERECTOMY ORIF PELVIS ORTHOPEDIC SURGERY WISDOM [...] Yellow Clarity, Urine Cloudy (A) Clear Specific [place] 1.024 1.005 - 1.025 pH, Urine 5.0 [...] Phenergan suppositories. She has follow-up with her health counselor at [facility] in 2 weeks. Do not [...] 1. Pineda Troy MD. Specialty: Gastroenterology [address] [phone] Contact information for after-discharge care Follow-up information has not been specified. New Prescriptions No medications on file (Please note that portions of this note may have been completed with a voice recognition software. Efforts were made to correct any errors, but occasionally words are mis-transcribed.) Jose Brown PA-C 06/09/17 0985 Pt states I have pancreatitis and I am having a flare up since last night . Pt relates mid abdominal pain that shoots into the left side of her back. Pt has been taking prescribed [place] without relief and states she has been vomiting.in this encounter I personally interviewed the patient. I personally examined the patient. I discussed the patient with CHOKER HOOKER/PA. I agree with the CHOKER HOOKER/PA treatment plan. I agree with the CHOKER HOOKER/PA plan of care. I agree with the CHOKER HOOKER/PA dispo as documented. I saw evaluate this [...] in observation . . Report given to: aHlie Johnson RN. Care transferred at this time. Formatting of this note may be different from the original. ED PROVIDER NOTE [facility] MEDICAL OBSERVATION NAME: Chioma Rainey AGE: 46 y.o. : 1970 VISIT DATE: 05/14/2017 CSN: [id number] PCP: Alexander Nichols MD Chief Complaint Patient [...] Procedure: EGD; Surgeon: Romain Dumont MD; Location: [facility]; Service: HYSTERECTOMY ORIF PELVIS ORTHOPEDIC SURGERY WISDOM [...] Colorless, Yellow Clarity, Urine Clear Clear Specific [place] 1.006 1.005 - 1.025 pH, Urine 5.0 [...] in the left lower pelvis. Workstation ID: [id number] Procedures MDM This is a 46-year-old female [...] different from the original. ED PROVIDER NOTE [facility] EMERGENCY DEPARTMENT NAME: Chioma Rainey AGE: 47 y.o. : 1970 VISIT DATE: 08/24/2017 CSN: [id number] PCP: Alexander Nichols MD Chief Complaint Patient [...] Procedure: EGD; Surgeon: Romain Dumont MD; Location: [facility]; Service: HYSTERECTOMY ORIF PELVIS ORTHOPEDIC SURGERY WISDOM [...] Yellow Clarity, Urine Hazy (A) Clear Specific [place] 1.006 1.005 - 1.025 pH, Urine 7.0 [...] probably remain. 5. Small left adrenal adenoma. Rebelle [employer] Workstation ID: [id number] Procedures MDM 47-year-old female [...] she did vomit. She was then given [place] Phenergan and a dose of Toradol. She [...] Medicine Why: follow up ER visit [address] [phone] Contact information for after-discharge care Follow-up information [...] the patient. I discussed the patient with CHOKER HOOKER/PA. I agree with the CHOKER HOOKER/PA treatment plan. I agree with the CHOKER HOOKER/PA plan of care. I agree with the CHOKER HOOKER/PA dispo as documented. Formatting of this note may be different from the original. ED PROVIDER NOTE [facility] EMERGENCY DEPARTMENT NAME: Chioma Rainey AGE: 47 y.o. : 1970 VISIT DATE: 03/04/2018 CSN: [id number] PCP: Alexander Nichols MD Chief Complaint Patient [...] Procedure: EGD; Surgeon: Romain Dumont MD; Location: [facility]; Service: HYSTERECTOMY ORIF PELVIS ORTHOPEDIC SURGERY WISDOM [...] Colorless, Yellow Clarity, Urine Clear Clear Specific [place] 1.004 (L) 1.005 - 1.025 pH, Urine [...] Condition Comment Hospitalize Attending Provider or Group: [facility] SACHIN, AKIL [[id number]] Phone call required?: No Follow-up Information Follow-up [...] different from the original. Alirio Negro MD [facility] Hospitalists History and Physical Patient Name:Chioma Rainey MR #:[id number] :1970 Admit Date: [id number] Physicians: Alexander Nichols MD (Family); No ref. [...] Procedure: EGD; Surgeon: Romain Dumont MD; Location: [facility]; Service: HYSTERECTOMY ORIF PELVIS ORTHOPEDIC SURGERY WISDOM [...] Diagnoses Acute recurrent pancreatitis Rajeev Tinoco MD [address] [place] [address], [place] [address] [facility] Reason Comments Abdominal Pain Pt c/o [...] Sabrina Dee MD, MPH [address] [place] [phone] Referral ID Status Reason Start Date Expiration Date V isits Requested Visits Authorized [id number] New Request 12/16/2021 01/10/2023 1 1 Specialty Diagnoses / Procedures Referred By Zia espinal Referred To Contact Diagnoses Recurrent acute pancreatitis Procedures UPPER EUS OH EGD US GUIDED TRANSMURAL INJXN/FIDUCIAL MARKER Sabrina Dee MD, MPH [address] [place] [phone] Referral ID Status Reason Start Date Expiration Date V isits Requested Visits Authorized [id number] New Request 12/16/2021 01/10/2023 1 1 Specialty Diagnoses / Procedures Referred By Zia espinal Referred To Contact Diagnoses Encounter for screening colonoscopy Procedures SCREENING COLONOSCOPY OH COLON CA SCRN NOT HI RSK IND Sabrina Dee MD, MPH [address] [place] [phone] Referral ID Status Reason Start Date Expiration Date V isits Requested Visits Authorized [id number] New Request 12/16/2021 01/10/2023 1 1 Reason Comments Follow-up 6 month follow up Specialty Diagnoses / Procedures Referred By Zia espinal Referred To Contact Diagnoses Alcohol-induced chronic pancreatitis Procedures UPPER EUS OH ESOPHAGOGASTRODUODENOSCOPY US SCOPE W/ADJ STRXRS Sabrina Dee MD, MPH [address] [place] [phone] Referral ID Status Reason Start Date Expiration Date V isits Requested Visits Authorized [id number] New Request 06/16/2022 07/11/2023 1 1 INFORMATION SOURCE (unrecogn ized section and content) DATE CREATED AUTHOR 03/09/[address] 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, Other [address] [place] [address] PCP - General 9/21/20 Team Status: Inactive [...] BE BASED ON THE PRIMARY CLINICAL RECORDS. [facility]. provides no warranty or guarantee of the accuracy or completeness of information in this document.
[2023-04-03] MEDS: PANTOPRAZOLE SODIUM 40 MG VIAL IV ×2 (12:40→20:17)
[2023-04-03] MEDS: PROMETHAZINE HCL 25 MG/ML VIAL IM (12:40)
--- NOTE | 2023-04-03 14:46 | P.HP_ITS ---
H&P: HPI History of Present Illness Chief complaint: ABD PAIN Narrative: 52 y/o with a history of chronic pancreatitis presents to ER with abdominal pain. To ER 03/07, 03/16, and 03/25 for pain and nausea. Reports over past week symptoms getting worse. Increased pain in epigastric region and radiating through to back. Severe nausea and emesis. Changed to liquid diet but not able to tolerate sips. History of alcohol abuse in the past which caused pancreatitis but has not had alcohol for several years. To ER and WBC normal. Lipase mildly elevated at 144. X-ray abdomen normal. Patient had CT abdomen 03/16 and 03/25 that was normal. Medication for nausea and pain but continued symptoms and admitted for treatment. Review of Systems ROS Constitutional Denies: fever, chills or fatigue Cardiovascular Denies: chest pain, palpitations or edema Respiratory Denies: shortness of breath, cough or wheezing Gastrointestinal Reports: abdominal pain, nausea and vomiting; Denies: diarrhea Genitourinary Denies: painful urination PFSH PFS Medical History (Updated 04/03/23 @ 12:20 by Neri Villa MD) Chronic pancreatitis ?K86.1 - Other chronic pancreatitis (ICD-10) Smoker ?F17.200 - Nicotine dependence, unspecified, uncomplicated (ICD-10) History of gastrostomy tube placement Surgical History (Updated 04/03/23 @ 12:10 by Marni Farley) Hx of esophagogastroduodenoscopy ?Z98.890 - Other specified postprocedural states (ICD-10) H/O colonoscopy ?Z98.890 - Other specified postprocedural states (ICD-10) Hx of cholecystectomy ?Z90.49 - Acquired absence of other specified parts of digestive tract (ICD- 10) H/O: hysterectomy ?Z90.710 - Acquired absence of both cervix and uterus (ICD-10) Social History (Updated 04/03/23 @ 12:08 by Marni Farley) Smoking status: Current every day smoker Non-prescribed substance use: denies use Highest level of school completed/degree received: high school graduate Meds Home Medications and Allergies Home Medications Medication Instructions Recorded Confirmed Type albuterol sulfate 90 mcg/actuation 2 inh inhalation QID PRN shortness 11/20/22 04/03/23 Rx aerosol inhaler (ProAir HFA) of breath or wheezing #8.5 grams famotidine 20 mg tablet (Pepcid) 20 mg PO BID PRN heartburn 04/03/23 04/03/23 History Allergies Allergy/AdvReac Type Severity Reaction Status Date / Time haloperidol [From Haldol] Allergy Intermediate Hives Verified 04/03/23 02:30 ibuprofen [From Motrin] Allergy Intermediate Hives Verified 04/03/23 02:30 tramadol Allergy Intermediate Hives Verified 04/03/23 02:30 Penicillins Allergy Unknown Verified 04/03/23 02:30 ketorolac [From Toradol] AdvReac Severe Hives Verified 04/03/23 02:30 fentanyl AdvReac Intermediate Verified 04/03/23 02:30 Exam Constitutional Vital Signs, click to edit/add: Last Vital Signs Temp 98.0 F 04/03/23 08:50 Pulse 76 04/03/23 08:55 Resp 16 04/03/23 08:55 BP 133/74 04/03/23 10:00 Pulse Ox 99 04/03/23 11:30 O2 Del Method Room Air 04/03/23 08:55 Documenting provider has reviewed patient's vital signs: yes Common normals: no apparent distress, oriented x3 and alert HENMT Common normals: normocephalic Eye Common normals: PERRL and EOMs intact bilaterally Respiratory Common normals: normal respiratory effort and clear to auscultation bilaterally Cardio Common normals: regular rate, regular rhythm, no gallops, no murmurs and no rub GI Auscultation: normoactive bowel sounds Palpation: soft and tender Details: epigastric; no guarding Extremity Common normals: no pedal edema Results Labs Labs: Short CBC 04/03/23 Range/Units 02:58 WBC 9.4 (4.0-11.0) 10^3/uL Hgb 13.0 (12.0-16.0) g/dL Hct 39.0 (36.0-48.0) % Plt Count 225 (150-450) 10^3/uL BMP 04/03/23 02:58 Sodium 140 Potassium 3.5 Chloride 105 Carbon Dioxide 29.3 BUN 6.0 L Creatinine 0.95 Glucose 98 Calcium 9.6 Liver Function 04/03/23 Range/Units 02:58 Total Bilirubin 0.2 (0.2-1.0) mg/dL AST 23 (15-37) U/L ALT 21 (14-59) U/L Alkaline Phosphatase 125 H (46-116) U/L Albumin 3.5 (3.4-5.0) g/dL Assessment and Plan Assessment and Plan (1) Acute on chronic pancreatitis: (2) Nausea & vomiting: (3) Abdominal pain: (4) Alcohol abuse, in remission: (5) COPD (chronic obstructive pulmonary disease): Plan Continued symptoms and keep NPO. Continue IV fluids. Use IV dilaudid for pain and zofran or IM phenergan for nausea. Likely can start clear liquids and oral pain medication in am.
[2023-04-03] MEDS: HYDROMORPHONE HCL 1 MG/ML CARTRIDGE IVP ×3 (17:27→23:21)
--- NOTE | 2023-04-03 20:53 | RESP.RT ---
No PRN breathing tx given. Pt denies need. No respiratory distress noted.
[2023-04-04] VITALS (12 sets, daily range): BP systolic 145–151; BP diastolic 76–80; PULSE 76–95; RESP 16–20; TEMP 36.7–36.8; O2SAT 89–97
[2023-04-04] MEDS: 0.9 % SODIUM CHLORIDE 1,000 ML 200 ML IV ×3 (03:06→11:23)
[2023-04-04] MEDS: HYDROMORPHONE HCL 1 MG/ML CARTRIDGE IVP ×6 (03:37→21:49)
[2023-04-04 05:42] LABS: Basophils Percent Auto 0.6 % (0.2-2.0); Eosinophils Absolute Auto 0.1 10^3/uL (0.0-0.7); Eosinophils Percent Auto 1.7 % (0.9-7.0); Hematocrit 32.9 % (36.0-48.0); Hemoglobin 10.6 g/dL (12.0-16.0); Immature Granulocytes Abs Auto 0.02 10^3/uL (0.00-0.03); Immature Granulocytes Pct Auto 0.3 % (0.0-0.5); Lymphocytes Absolute Auto 2.7 10^3/uL (1.2-3.8); Lymphocytes Percent Auto 38.1 % (20.5-60.0); Mean Corpuscular HGB Conc 32.2 g/dL (29.9-35.2); Mean Corpuscular Hemoglobin 32.4 pg (26.7-34.0); Mean Corpuscular Volume 100.6 fL (81.0-99.0); Mean Platelet Volume 10.2 fL (9.5-13.5); Monocytes Absolute Auto 0.7 10^3/uL (0.3-0.8); Monocytes Percent Auto 9.8 % (1.7-12.0); Neutrophils Absolute Auto 3.5 10^3/uL (1.4-6.5); Neutrophils Percent Auto 49.5 % (43.0-75.0); Platelet Count 180 10^3/uL (150-450); Red Blood Count 3.27 10^6/uL (4.20-5.40); Red Cell Distribution Width 12.8 % (11.0-15.0)
[2023-04-04 06:06] LABS: Alanine Aminotransferase 22 U/L (14-59); Albumin Level 2.6 g/dL (3.4-5.0); Alkaline Phosphatase 101 U/L (46-116); Amylase 107 U/L (25-115); Anion Gap -1.6; Aspartate Amino Transferase 23 U/L (15-37); BUN Creatinine Ratio 5.2; Bilirubin Total 0.1 mg/dL (0.2-1.0); Calcium 8.3 mg/dL (8.5-10.1); Carbon Dioxide 26.9 mmol/L (21.0-32.0); Chloride 106 mmol/L (98-107); Estimated GFR (African America >60 (>=60); Estimated GFR (Non-African Ame >60 (>=60); Globulin 2.6 g/dL; Glucose 91 mg/dL (74-106); Potassium 3.3 mmol/L (3.5-5.1); Sodium 128 mmol/L (136-145); Total Protein 5.2 g/dL (6.4-8.2)
[2023-04-04] MEDS: FAMOTIDINE/PF 20 MG/2 ML VIAL IV ×2 (08:17→20:43)
[2023-04-04] MEDS: PANTOPRAZOLE SODIUM 40 MG VIAL IV ×2 (08:17→20:50)
[2023-04-04] MEDS: ONDANSETRON PF 4 MG/2 ML VIAL IV ×2 (08:18→21:49)
--- NOTE | 2023-04-04 08:56 | PM.PN ---
Progress Note: Subjective Subjective Interval history: 52 y.o white female here with Acute on Chronic pancreatitis. Reports still has no appetite. Pain in the left flank and radiates to the left front. Denies any urinary symptoms, no fevers. Still nauseated, no vomiting or diarrhea. Normal lipase today of 53 with normal liver functions. Exam Narrative Exam Narrative: General: Patient is alert, and oriented to person, place and time with normal affect, proper hygiene Skin: no visible rashes, or ulcers Head: atraumatic, acephalic Heart: Normal rate and rhythm, no murmurs/rubs/gallops Lungs: no audible wheezes, crackles and normal breath sounds all lung la Abdomen: Normal audible bowel sounds, no distension, No palpable masses, no organomegaly, no rebound/guarding/ or rigidity Musculoskeletal: pain with palpation of the left flank and left lat muscle Neuro: CN II-X grossly intact, normal sensation upper and lower extremities Constitutional Vital Signs, click to edit/add: Last Vital Signs Temp 98.0 F 04/04/23 06:00 Pulse 95 H 04/04/23 08:48 Resp 16 04/04/23 06:00 BP 145/80 H 04/04/23 06:00 Pulse Ox 94 L 04/04/23 06:00 O2 Del Method Room Air 04/04/23 06:00 Progress Note: Objective Labs Labs: Short CBC 04/04/23 Range/Units 04:56 WBC 7.0 (4.0-11.0) 10^3/uL Hgb 10.6 L (12.0-16.0) g/dL Hct 32.9 L (36.0-48.0) % Plt Count 180 (150-450) 10^3/uL BMP 04/04/23 04:56 Sodium 128 L Potassium 3.3 L Chloride 106 Carbon Dioxide 26.9 BUN 4.0 L Creatinine 0.77 Glucose 91 Calcium 8.3 L Liver Function 04/04/23 Range/Units 04:56 Total Bilirubin 0.1 L (0.2-1.0) mg/dL AST 23 (15-37) U/L ALT 22 (14-59) U/L Alkaline Phosphatase 101 (46-116) U/L Albumin 2.6 L (3.4-5.0) g/dL Progress Note: A&P Assessment and Plan (1) Acute on chronic pancreatitis: Assessment and Plan: Lipase normal. Pain consistent with musculoskeletal pain. She is ALLERGIC to multiple anti-inflammatories will add Solu-Medrol and see if this improves her symptoms. Urinalysis negative will also check a renal ultrasound bilaterally for possible stone. CT of abdomen and pelvis was also reviewed and stone was not seen. (2) Nausea & vomiting: Assessment and Plan: continue antiemetics as needed Qualifiers: Vomiting type: bilious vomiting Qualified Code(s): R11.14 - Bilious vomiting (3) Abdominal pain: Assessment and Plan: nonspecific normal white blood cell count, normal liver function and lipase today. Normal CT abdomen and pelvis. Again think pain is mostly musculoskeletal in nature. Patient is also remained afebrile infectious workup is negative. Qualifiers: Abdominal location: generalized Qualified Code(s): R10.84 - Generalized abdominal pain (4) Alcohol abuse, in remission: Assessment and Plan: monitor (5) COPD (chronic obstructive pulmonary disease): Assessment and Plan: no acute exacerbation Qualifiers: COPD type: chronic bronchitis Chronic bronchitis type: simple Qualified Code(s): J41.0 - Simple chronic bronchitis Plan patient is a full code Patient is an inpatient status and is expected to stay more than to midnight advance diet today to clears and try solumedrol for pain control.
--- NOTE | 2023-04-04 13:40 | US_ITS ---
[address] [address] Patient Name: CHIOMA BOUDREAUX MRN: [id number] date: 1970 Sex: F Assigned Patient Location: [place] Current Patient Location: Accession/Order Number: [id number] Exam Date: 04/04/2023 15:20 Report Date: 04/04/2023 20:59 At the request of: LEON PARKINSON Procedure: US renal BI ULTRASOUND RENAL HISTORY: Left flank pain. COMPARISON: None. FINDINGS: The right kidney measures 8.7 x 3.9 x 4.6 cm. There is no hydronephrosis, masses, or stones. The left kidney measures 9.3 x 4.7 x 4.8 cm. There is no hydronephrosis, masses, or stones. There is no bladder wall thickening or bladder stones. US/US renal BI IMPRESSION: No hydronephrosis. No sonographic evidence for renal stones. Electronically authenticated by: ANTHONY ISSA Date: 04/04/2023 20:59
[2023-04-04] MEDS: METHYLPREDNISOLONE SOD SUCC PF 125 MG/2 ML VIAL IVP (14:21)
[2023-04-04] MEDS: 0.9 % SODIUM CHLORIDE 1,000 ML 100 ML IV (18:02)
--- NOTE | 2023-04-04 20:34 | RESP.RT ---
No PRN breathing tx given. Pt denies need. No respiratory distress noted.
[2023-04-05] VITALS (7 sets, daily range): BP systolic 142; BP diastolic 84; PULSE 93; RESP 20; TEMP 36.5; O2SAT 94–96
[2023-04-05] MEDS: HYDROMORPHONE HCL 1 MG/ML CARTRIDGE IVP ×3 (00:38→07:30)
[2023-04-05] MEDS: PROMETHAZINE HCL 25 MG/ML VIAL IM (00:39)
[2023-04-05] MEDS: METHYLPREDNISOLONE SOD SUCC PF 125 MG/2 ML VIAL IVP ×2 (02:11→13:31)
[2023-04-05] MEDS: ONDANSETRON PF 4 MG/2 ML VIAL IV ×2 (03:36→10:59)
[2023-04-05] MEDS: 0.9 % SODIUM CHLORIDE 1,000 ML 100 ML IV (03:36)
[2023-04-05 05:02] LABS: Basophils Percent Auto 0.1 % (0.2-2.0); Hematocrit 35.4 % (36.0-48.0); Hemoglobin 11.7 g/dL (12.0-16.0); Immature Granulocytes Abs Auto 0.06 10^3/uL (0.00-0.03); Immature Granulocytes Pct Auto 0.7 % (0.0-0.5); Lymphocytes Absolute Auto 0.6 10^3/uL (1.2-3.8); Lymphocytes Percent Auto 6.5 % (20.5-60.0); Mean Corpuscular HGB Conc 33.1 g/dL (29.9-35.2); Mean Corpuscular Hemoglobin 32.8 pg (26.7-34.0); Mean Corpuscular Volume 99.2 fL (81.0-99.0); Mean Platelet Volume 10.4 fL (9.5-13.5); Monocytes Absolute Auto 0.2 10^3/uL (0.3-0.8); Neutrophils Absolute Auto 8.1 10^3/uL (1.4-6.5); Neutrophils Percent Auto 90.7 % (43.0-75.0); Platelet Count 177 10^3/uL (150-450); Red Blood Count 3.57 10^6/uL (4.20-5.40); Red Cell Distribution Width 12.2 % (11.0-15.0); White Blood Count 8.9 10^3/uL (4.0-11.0)
[2023-04-05 05:35] LABS: Alanine Aminotransferase 24 U/L (14-59); Albumin Level 3.1 g/dL (3.4-5.0); Alkaline Phosphatase 118 U/L (46-116); Amylase 61 U/L (25-115); Aspartate Amino Transferase 22 U/L (15-37); BUN Creatinine Ratio 5.7; Bilirubin Total 0.1 mg/dL (0.2-1.0); Calcium 9.1 mg/dL (8.5-10.1); Carbon Dioxide 22.9 mmol/L (21.0-32.0); Chloride 105 mmol/L (98-107); Estimated GFR (African America >60 (>=60); Estimated GFR (Non-African Ame >60 (>=60); Globulin 3.2 g/dL; Glucose 218 mg/dL (74-106); Potassium 3.9 mmol/L (3.5-5.1); Sodium 135 mmol/L (136-145); Total Protein 6.3 g/dL (6.4-8.2)
[2023-04-05] MEDS: PANTOPRAZOLE SODIUM 40 MG VIAL IV (08:34)
[2023-04-05] MEDS: FAMOTIDINE/PF 20 MG/2 ML VIAL IV (08:34)
--- NOTE | 2023-04-05 08:38 | PM.DS1 ---
DS: Providers Provider Date of admission: 04/03/23 11:10 Primary care physician: [facility] Admitting clinician: Neri Villa Consults: 04/03/23 Consult to Dietitian Routine Reason For Exam: n/v, pancreatitis, poor appetite Reason for consultation: n/v, pancreatitis, poor appetite Discharging clinician: Monik Siddiqui DS: Diagnosis Discharge Diagnosis (1) Acute on chronic pancreatitis: (2) Nausea & vomiting: Qualifiers: Vomiting type: bilious vomiting Qualified Code(s): R11.14 - Bilious vomiting (3) Abdominal pain: Qualifiers: Abdominal location: generalized Qualified Code(s): R10.84 - Generalized abdominal pain (4) Alcohol abuse, in remission: (5) COPD (chronic obstructive pulmonary disease): Qualifiers: COPD type: chronic bronchitis Chronic bronchitis type: simple Qualified Code(s): J41.0 - Simple chronic bronchitis DS: Summary Hospital Course Hospital Course: 52 y/o with a history of chronic pancreatitis presented to ER with abdominal pain. To ER 03/07, 03/16, and 03/25 for pain and nausea. Reports over past week symptoms getting worse. Increased pain in epigastric region and radiating through to back. Severe nausea and emesis. Changed to liquid diet but not able to tolerate sips. History of alcohol abuse in the past which caused pancreatitis but has not had alcohol for several years. To ER and WBC normal. Lipase mildly elevated at 144. X-ray abdomen normal. Patient had CT abdomen 03/16 and 03/25 that was normal. Patient pain improved on Dilaudid and NPO status, lipase was normal range, liver enzymes normal range at the time of discharge. US of the kidneys performed showed nothing acute. Patient remained afebrile, vitals stable, tolerating jello and fluid. I think her left sided pain is more musculoskeletal in nature. Will discharge patient on flexeril as needed and prednisone 20mg BID x 5 days. She can follow closely with her GI doctor and PCP. She can return to hospital with any worsening signs or symptoms. Status at Discharge Functional status at discharge: independent ambulation Overall status at discharge: patient is back to baseline Time Spent with Patient Time attestation: Total time spent providing and/or coordinating discharge services: Time spent: less than 30 minutes Exam Narrative Exam Narrative: General: Patient is alert, and oriented to person, place and time with normal affect, proper hygiene Skin: no visible rashes, or ulcers Head: atraumatic, acephalic Heart: Normal rate and rhythm, no murmurs/rubs/gallops Lungs: no audible wheezes, crackles and normal breath sounds all lung la Abdomen: Normal audible bowel sounds, no distension, No palpable masses, no organomegaly, no rebound/guarding/ or rigidity Musculoskeletal:no swelling bilateral lower extremities Neuro: CN II-X grossly intact Constitutional Vital Signs, click to edit/add: Last Vital Signs Temp 97.7 F 04/05/23 05:24 Pulse 93 H 04/05/23 05:24 Resp 20 04/05/23 05:24 BP 142/84 H 04/05/23 05:24 Pulse Ox 94 L 04/05/23 07:47 O2 Del Method Room Air 04/05/23 05:24 DS: Data Data Completed and Pending Labs on day of discharge: Labs from last 24 hours 04/05/23 04:10 WBC 8.9 RBC 3.57 L Hgb 11.7 L Hct 35.4 L MCV 99.2 H MCH 32.8 MCHC 33.1 RDW 12.2 Plt Count 177 MPV 10.4 Neut % (Auto) 90.7 H Lymph % (Auto) 6.5 L [place] % (Auto) 2.0 Eos % (Auto) 0.0 L Baso % (Auto) 0.1 L Neut # (Auto) 8.1 H Lymph # (Auto) 0.6 L [place] # (Auto) 0.2 L Eos # (Auto) 0.0 Baso # (Auto) 0.0 Abs Immat Gran (auto) 0.06 H Imm/Tot Granulo (auto) 0.7 H Sodium 135 L Potassium 3.9 Chloride 105 Carbon Dioxide 22.9 Anion Gap 11.0 BUN 5.0 L Creatinine 0.87 Est GFR ( Amer) >60 Est GFR (Non-Af Amer) >60 BUN/Creatinine Ratio 5.7 Glucose 218 H Calcium 9.1 Total Bilirubin 0.1 L AST 22 ALT 24 Alkaline Phosphatase 118 H Total Protein 6.3 L Albumin 3.1 L Globulin 3.2 Albumin/Globulin Ratio 1.0 Amylase 61 Lipase 24.0 Discharge Plan Discharge Disposition: Home, Self-Care Condition: Good Discharge Medications: New cyclobenzaprine 10 mg Tablet 10 mg PO TID PRN (Reason: Pain) 5 Days Qty: 15 0RF prednisone 20 mg tablet 20 mg PO BID 5 Days Qty: 10 0RF Continued albuterol sulfate [ProAir HFA] 90 mcg/actuation HFA aerosol inhaler 2 inh inhalation QID PRN (Reason: shortness of breath or wheezing) Qty: 8.5 0RF famotidine [Pepcid] 20 mg tablet 20 mg PO BID PRN (Reason: heartburn) Activity: increase activity as tolerated Diet: advance to your usual diet Patient Instructions: Abdominal Pain (DC) Forms: Portal Instructions Follow Up Appointments: PCP 5-7 days, GI doctor 1-2 weeks
[2023-04-05] MEDS: CYCLOBENZAPRINE HCL 10 MG TABLET PO (10:59)
--- NOTE | 2023-04-07 10:58 | CM.DCFOLLOWU ---
1st attempt discharge follow up call made by Frannie Loyd on 04/07/23, no answer
--- NOTE | 2023-04-20 14:45 | CM.DCFOLLOWU ---
2nd attempt discharge follow up call made by Frannie Loyd on 04/20/23, no answer
== END 2023-04-05 13:56 | disposition home or self-care (01) ==
LOC: ER 05:39 → MS 11:11
PROVIDERS: Family Medicine; Admitting Provider Family Medicine; Emergency Provider Student in an Organized Health Care Education/Training Program; Visit Provider Family Medicine
DX: K85.90 Acute pancreatitis without necrosis or infection, unspecified (principal); K86.1 Other chronic pancreatitis; R11.14 Bilious vomiting; R11.0 Nausea; R10.84 Generalized abdominal pain; F10.11 Alcohol abuse, in remission; J44.9 Chronic obstructive pulmonary disease, unspecified; Z90.49 Acquired absence of other specified parts of digestive tract; Z90.710 Acquired absence of both cervix and uterus; F17.210 Nicotine dependence, cigarettes, uncomplicated; Z79.899 Other long term (current) drug therapy
CPT/HCPCS: 36415; 74022; 76775; 80053; 82150; 83605; 83690; 84484; 85025; 96361; 96372; 96374; 96375; 96376; 99285; G0378; J1170; J2250; J2405; J2930

== ENCOUNTER 2023-04-08 04:27 | Emergency (ER) | payer OTHER, SELFPAY ==
[2023-04-08 04:36] VITALS: BP 149/81; PULSE 80; RESP 18; TEMP 36.9; O2SAT 98
--- OUTSIDE RECORDS SUMMARY | 2023-04-08 04:37 | XMS_ITS | CCD ---
Author Name Unknown Address [address] [place] [address] Organization [facility] Care Team Providers Care Automation Test Developer Name Role Phone MagdalenaElie Unavailable LIDARRICKWA Unavailable Unavailable COPC SACHIN, GENERIC Unavailable Unavailable COPC SACHIN, GENERIC Unavailable Unavailable RUPINDER NEGROI Unavailable Unavailable LI, KEWA Unavailable Unavailable JOANA MENDES Unavailable Unavailable LI, KEWA Unavailable Unavailable ERROL WALTON Unavailable Unavaila ble LI, KEWA Unavailable Unavailable KEERTHI NGUYEN Unavailable Unavailable COPC SACHIN, GENERIC Unavailable Unavailable KEERTHI NGUYEN Unavailable Unavailable LI, KEWA Unavailable Unavailable PHYSICIANS, [facility] Unavailable Unav ailable EUGENIA SHELTON Unavailable Unavailable [facility]YS[facility], [facility] Unavailable Unav ailable Unavailable Primary Care Provider UnavailRAJEEV Pino Admitting Unavailable RAJEEV TINOCO Attending Unavailable Li Darrickwa Primary Care Provider Unavailable Primary Care Provider UnavailMarya Guajardo Unavailable NON STAFF Primary Care Provider UnavailDO Keaton Thompson Emergency Provider SALMA Amor Emergency Provider SALMA Lopez Emergency Provider [phone] Woodrow ALEXANDER, [place] Unavailable [phone] [facility], Other Primary Care Provi mathew NON STAFF Primary Care Provider Unavailflorida Llanes MD Agustin Emergency Provider [phone] DR TRI HANSON Consulting Unavailable DEMIAN ., ARIC Attending Unavailable DEMIAN ., ARIC Admitting Unavailable [facility] Primary Care Unavailable DEMIAN ., ARIC Consulting Unavailable AGUSTIN MADRIGAL Consulting Unavailable YANNI FRASER Attending Unavailable YANNI FRASER Admitting Unavailable [facility] Primary Care Unavailable HEBERT MCPHERSON Consulting Unavailable AMINATA, DR RAJEEV Chan Consulting Unavailable AMINATA, DR RAJEEV Chan Attending Unavailable AMINATA, DR RAJEEV Chan Admitting Unavailable [facility] Primary Care Unavailable JOESPHCHCATHLEEN ., ANKIT BOYKIN Consulting Unavailabl e IGGY ., MONIK Attending Unavailable IGGY ., MONIK Admitting Unavailable GRECHNY ., PA LUCRETIA [facility]ing [facility]available ANNELIESE, NICK Consulting Unavailable DEMIAN ., ARIC Consulting Unavailable AGUSTIN HIGHTOWER Consulting Unavailable ROLAN EUCEDA Consulting Unavailable AMINATA, DR RAJEEV Chan Consulting Unavailable BRIANNA, DR SHARON Silveira Attending Unavailabl e REINECK, DR SHARON Silveira Ad[facility] Unavailable BRIANNA, DR SHARON Silveira Consulting Unavailabl e HANS ., NAT Consulting Unavailable HANS ., NAT Consulting Unavailable PAY ., DR MACEDO Attending Unavailable PAY ., DR MACEDO Admitting Unavailable [facility] Primary Care Unavailable ANNELIESE, NICK Consulting Unavailable MARIAM COYYL Attending Unavailable ANNELIESE, NICK Admitting Unavailable [facility] Primary Care Unavailable MILADIS BARRERA Consulting Unavailable DEMIAN ., ARIC Attending Unavailable DEMIAN ., ARIC Admitting Unavailable DEMIAN ., ARIC Consulting Unavailable [facility] Primary Care Unavailable ION KRUSE Consulting Unavailable YANNI FRASER Attending Unavailable YANNI FRASER Admitting Unavailable JANNY ., ANKIT BOYKIN Consulting [facility] Unavailable LYNNE PERDOMO Consulting Unavailable DEMIAN ., ARIC Attending Unavailable DEMIAN ., ARIC Admitting Unavailable [facility] Primary Care Unavailable DEMIAN ., ARIC Consulting Unavailable DIAB ., ELENITA Consulting Unavailable DIAB ., ELENITA Attending Unavailable DIAB ., ELENITA Admitting Unavailable [facility] Primary Care Unavailable PAY ., DR MACEDO Consulting Unavailable PAY ., DR MACEDO Attending Unavailable PAY ., DR MACEDO Admitting Unavailable [facility] Primary Care Unavailable NICK COY Consulting Unavailable NICK COY Attending Unavailable NICK COY Admitting Unavailable [facility] Primary Care Unavailable AGUSTIN HIGHTOWER Consulting Unavailable AMINATA, DR RAJEEV Chan Consulting Unavailable HAY ., DR GRANT Attending Unavailable HAY ., DR GRANT Admitting Unavailable [facility] Primary Care Unavailable HAY ., DR GRANT Consulting Unavailable [facility] Primary Care Un available [...] Unavailabl e NON STAFF Primary Care Provider Unavailflorida e ALEA Posadas Emergency Provider [phone] SERVICES, [facility] Primary Care Unava ilable [facility] [place] Attending Unavailable [facility] [place] Attending Unavailable [facility] [place] Referring Unavailable [facility] Primary Care Unava ilable NON STAFF Primary Care Provider Unavailflorida e ALEA Posadas Emergency Provider Nicole Posadas Admitting Unavailable NON STAFF Primary Care Unavailable Nicole Posadas Attending Unavailable NON STAFF Primary Care Unavailable Nicole Posadas Attending Unavailable Nicole Posadas Admitting Unavailable Allergies Allergy Classification Reported Allergen(s) Allergy Type Date of Onset Reaction(s) Facility (18 sources) haloperidol; Translations: [HALOPERIDOL] Propensity to adverse reactions to drug 06-02-19 16 [facility] (20 sources) ibuprofen; Translations: [IBUPROFEN] Propensity to adverse reactions to drug 10-31-19 13 Hives, Swelling [facility] (6 sources) metoclopramide; Translations: [METOCLOPRAMIDE HCL] Propensity to adverse reactions to drug 07-01-19 17 [facility] (6 sources) penicillin g; Translations: [PENICILLIN G] Propensity to adverse reactions to drug 07-25-19 15 Anaphylaxis [facility] (20 sources) traMADol; Translations: [TRAMADOL] Propensity to adverse reactions to drug 07-25-19 15 [facility] (19 sources) morphine; Translations: [MORPHINE] Drug Allergy 07-16-19 18 Hives [facility] (2 sources) Enoxaparin Drug Allergy 08-23-19 20 Itching, Rash [place] (2 sources) Haloperidol Drug Allergy 10-20-19 18 Swelling [place] (14 sources) Penicillins; Translations: [PENICILLINS] Propensity to adverse reactions to drug 10-31-19 13 Anaphylaxis, Swelling [place] (2 sources) Haloperidol; Translations: [Haldol] Drug Allergy 08-10-19 19 Unknown [facility] (8 sources) fentaNYL; Translations: [Fentanyl] Drug Allergy 09-13-19 21 [facility] (7 sources) Ketorolac; Translations: [KETOROLAC] Drug Allergy 06-13-19 21 [facility] (6 sources) Ketorolac Drug Allergy 12-17-19 22 Hives, Itching [facility] (6 sources) Metoclopramide Drug Allergy 07-20-19 17 Anxiety [facility] (1 source) Ibuprofen Drug Allergy 01-09-20 13 [facility] (1 source) Ketorolac Drug Allergy [facility] (1 source) Morphine Drug Allergy 08-10-19 19 [facility] (1 source) Penicillins Drug allergy (disorder) 01-09-20 13 [facility] (1 source) traMADol Drug Allergy 01-09-20 13 [facility] (1 source) Haloperidol Drug Allergy 04-02-19 [facility] (1 source) Ibuprofen Drug Allergy 04-02-19 [facility] (1 source) Morphine Drug Allergy 04-02-19 [facility] (1 source) Penicillins Drug allergy (disorder) 04-02-19 [facility] (1 source) traMADol Drug Allergy 04-02-19 [facility] Medications Current Medications Medication Drug Class(es) Dates Sig (Normalized) Sig (Original) Acetaminophen (1 source) Start: 08-23-2019 acetaminophen (TYLENOL) tablet 650 mg amylase 594248 unt / lipase 03940 unt / protease 16181 unt delayed release oral capsule (9 sources) Start: 12-16-2021 End: 07-16-2022 take 30547-23820 capsules by mouth three times daily Blljvd-Sqsdynud-Nkr lase (Creon) 24,000-76,000 -120,000 unit capsule,delayed release(DR/EC) [...] by mouth every week ergocalciferol 1.25 MG (98725 UT) capsule Take 1 capsule by mouth [...] as needed HYDROmorphone (DILAUDID) injection 0.5 mg [place] (No Known Home Meds) (1 source) Start: 10-09-2021 [place] (No Kn own Home Meds) Active October [...] release tablet 5 mg polyethylene glycol 3350 52068 mg powder for oral solution (1 source) Osmotic Laxative Start: 08-22-2019 17 g, Oral, D AILY PRN, Constipation, Starting Thu08/22/19 at 1627 First line therapy for constipation [...] 1 TAB PO EVERY 4-6 HOURS 6 3 October 08, 2020 November 20, 2020 5:23pm Start: 04-19-2020 End: 05-31-2020 take 1 tablet by mouth every six hours Hydrocodone-Acetaminophen Discontinued 1 TAB PO Q6H 10 3 April 19, 2020 May 31, 2020 2:51pm acetaminophen 325 mg / oxyCODONE hydrochloride 5 mg oral tablet (10 sources) Opioid Agonist Start: 10-04-2021 End: 10-09-2021 take 1 tablet by mouth every six hours Oxycodone-Acetaminophen (Percocet) 5-325 mg tablet Discontinued 1 TAB PO Q6H 10 3 October 04, 2021 October 09, 2021 1:19pm [...] 40 mg, Subcutaneous, DAILY, First dose on 08/22/19 at 1645 Start: 05-14-2017 End: 05-15-2017 enoxaparin [...] Translations: [Depressive disorder] Onset: 09-07-2014 09-07-2014 Chronic Noninfectious gastroenteritis (3 sources) Noninfective gastroenteritis and colitis, unspecified; Translations: [Noninfective gastroenteritis and colitis, unspecified] Onset: 08-24-2017 Episodic Osteoporosis (6 sources) Osteoporosis; Translations: [Other osteoporosis without current pathological fracture] Onset: 01-28-2022 Chronic Other aftercare (1 source) Other longterm (current) drug therapy; Translations: [OTH RETIREMENT CURRENT DRUG THERAPY] Onset: 04-01-2022 Episodic Other [...] communicable diseases Onset: 03-19-2021 Resolved: 03-19-2021 Episodic Nausea and vomiting (20 sources) Nausea and vomiting; Translations: [Nausea with vomiting, unspecified] Onset: 08-30-2014 Resolved: 06-09-2016 11-30-2014 Episodic Other disorders of stomach and duodenum [...] 04-02-2023 ALT [Catalytic activity/Vol] 11 U/L 7-52 [facility] Albumin [Mass/volume] in Ser um or Plasma by Bromocresol green (BCG) dye binding methoOrdered By: Nicole Posadas on 04-02-2023 Albumin BCG dye [Mass/Vol] 4.2 g/dL 3.5-5.7 [facility] Alkaline phosphatase [Enzyma tic activity/volume] in Serum or PlasmaOrdered By: Nicole Posadas on 04-02-2023 ALP [Catalytic activity/Vol] 101 U/L 34-104 [facility] Aspartate aminotransferase [ Enzymatic activity/volume] in Serum or PlasmaOrdered By: Nicole Posadas on 04-02-2023 AST [Catalytic activity/Vol] 21 U/L 13-39 [facility] Automated urine color determ inationOrdered By: Nicole Posadas on 04-02-2023 Color (U) Yellow Normal Yellow [facility] Comment on above: Order Comment: Name Collection Type:: Clean-Voided Midstream Performed By: #### U A #### [place] [address] [place] Basophils Auto (Bld) [#/Vol] Ordered By: Nicole Posadas on 04-02-2023 Basophils (Bld) [#/Vol] 0.0 10*3/uL 0.0-0.2 [facility] Basophils/100 WBC Auto (Bld) Ordered By: Nicole Posadas on 04-02-2023 Basophils/100 WBC (Bld) 0.2 % . [facility] Bilirubin Test strip Ql (U)O rdered By: Nicole Posadas on 04-02-2023 Bilirubin Ql (U) Negative Negative [facility] Bilirubin.total [Mass/volume ] in Serum or PlasmaOrdered By: Nicole Posadas on 04-02-2023 Bilirubin [Mass/Vol] 0.3 mg/dL 0.3-1.[address] [facility] CT abdomen pelvis w conon CT abdomen pelvis w [facility] [place] [address] CT Scan Report Signed Patient: Chioma Arciniega MR#: [id number] : 1970 Acct:[id number] Age/Sex: 52 / F ADM Date: 04/02/23 Loc: ER Room: Type: [facility] ER Attending Dr: Copies to: Nicole Posadas APRN Ordering Provider: Nicole Posadas APRN Date of Service: 04/02/23 CT/CT abdomen pelvis w con: increased abd pain CT ABDOMEN AND PELVIS WITH INTRAVENOUS CONTRAST: CLINICAL HISTORY: Left flank pain for one week COMPARISON: CT abdomen and pelvis 11/09/2022 TECHNIQUE: Spiral images were obtained through the abdomen and pelvis following the administration of intravenous contrast. This CT exam was performed using one or more following dose reduction techniques: Automated exposure control, adjustment of the mA and/or kV according to patient size, or use of iterative reconstruction technique. FINDINGS: Suboptimal evaluation due to respiratory motion. Lung Bases: [No acute findings.] Organs:Gallbladder has been removed. Liver portal vein pancreas spleen and right adrenal gland and kidneys all appear unremarkable. Stable 1 cm indeterminate nodule left adrenal gland. Abdominal aorta appears normal in caliber.[ GI: Stomach is grossly unremarkable. Small bowel appears nondilated. Appendix is normal. Questionable wall thickening involving the sigmoid colon without surrounding inflammatory change. No obstruction. Pelvis:[Urinary bladder is grossly unremarkable. Uterus not visualized. No adnexal mass.] Peritoneum/Retroperito neum:No free air, free fluid or lymphadenopathy.[ Abd wall/Bones:Abdominal wall demonstrates no acute findings. Osseous structures demonstrate degenerative change.[ CT/CT abdomen pelvis w con IMPRESSION: Questionable wall thickening involving the sigmoid colon without surrounding inflammatory changes. Finding May relate to underdistention, however developing colitis cannot be excluded. No colonic obstruction is seen. The former is favored as the sigmoid colon appears similar on the 11/09/2022 study. Stable 1 cm nodule left adrenal gland. Impression dictated by: Eyal Paredes Jr., D.O.04/02/2023 6:15 PM Dictation Location: [facility] Transcribed By: [facility] 04/02/231814 Dictated By: Eyal Paredes Jr, DO 04/02/231808 Signed By: 04/02/231814 [facility] Calcium [Mass/volume] in Ser um or PlasmaOrdered By: Nicole Posadas on 04-02-2023 Calcium [Mass/Vol] 9.7 mg/dL 8.6-10.3 [facility] Carbon dioxide, total [Moles /volume] in Serum or PlasmaOrdered By: Nicole Posadas on 04-02-2023 CO2 [Moles/Vol] 26.3 mmol/L 21.0-31.0 [facility] Chloride [Moles/volume] in S erika or PlasmaOrdered By: Nicole Posadas on 04-02-2023 Chloride [Moles/Vol] 106 mmol/L 98-107 [facility] Complete Blood Count Auto Di ffon 04-02-2023 Basophils (Bld) [#/Vol] 0.0 10*3/uL Normal 0.0-0.2 [facility] Comment on above: Result Comment: PERF ORMED BY: [place] [address] PATHOLOGIST RESEARCH RECRUITER PAULA RODRIGUES M.D. Performed By: #### C BC, CMP, HS TROP, LIPASE #### [address] Basophils/100 WBC (Bld) 0.2 % Normal . [facility] Comment on above: Performed By: #### C BC, CMP, HS TROP, LIPASE #### [facility] [address] [place] [address] Eosinophils (Bld) [#/Vol] 0.1 10*3/uL Normal 0.0-0.45 [facility] Comment on above: Performed By: #### C BC, CMP, HS TROP, LIPASE #### [place] [address] [place] Eosinophils/100 WBC (Bld) 1.7 % Normal . [facility] Comment on above: Performed By: #### C BC, CMP, HS TROP, LIPASE #### [facility] [address] Erythrocyte distribution width (RBC) [Ratio] 13.3 % Normal 11.9-15.3 [facility] Comment on above: Performed By: #### C BC, CMP, HS TROP, LIPASE #### [address] Hematocrit (Bld) [Volume fraction] 41.8 % Normal 34.0-46.4 [facility] Comment on above: Performed By: #### C BC, CMP, HS TROP, LIPASE #### [address] Hemoglobin (Bld) [Mass/Vol] 14.2 g/dL Normal 11.8-15.4 [facility] Comment on above: Performed By: #### C BC, CMP, HS TROP, LIPASE #### [address] Lymphocytes (Bld) [#/Vol] 1.8 10*3/uL Normal 1.00-4.8 [facility] Comment on above: Performed By: #### C BC, CMP, HS TROP, LIPASE #### [address] Lymphocytes/100 WBC (Bld) 29.2 % Normal . [facility] Comment on above: Performed By: #### C BC, CMP, HS TROP, LIPASE #### [address] MCH (RBC) [Entitic mass] 33.1 pg Normal 24.7-34.3 [facility] Comment on above: Performed By: #### C BC, CMP, HS TROP, LIPASE #### [address] MCV (RBC) [Entitic vol] 97.4 fL Normal 80-100 [facility] Comment on above: Performed By: #### C BC, CMP, HS TROP, LIPASE #### [address] Mean Corpuscular HGB Conc 34.0 g/dL Normal 32.0-35.0 [facility] Comment on above: Performed By: #### C BC, CMP, HS TROP, LIPASE #### [address] Monocytes (Bld) [#/Vol] 0.6 10*3/uL Normal 0.0-0.8 [facility] Comment on above: Performed By: #### C BC, CMP, HS TROP, LIPASE #### [facility] [address] Monocytes/100 WBC (Bld) 17.36 % Normal 0.00-20.00 [facility] Comment on above: Performed By: #### C BC, CMP, HS TROP, LIPASE #### [facility] [address] Monocytes/100 WBC (Bld) 9.8 % Normal . [facility] Comment on above: Performed By: #### C BC, CMP, HS TROP, LIPASE #### [facility] [address] Neutrophils (Bld) [#/Vol] 3.6 10*3/uL Normal 1.8-7.7 [facility] Comment on above: Performed By: #### C BC, CMP, HS TROP, LIPASE #### [facility] [address] Neutrophils/100 WBC (Bld) 59.1 % Normal . [facility] Comment on above: Performed By: #### C BC, CMP, HS TROP, LIPASE #### [facility] [address] NRBC% 0.1 /100{WBC} Normal 0-0.5 [facility] Comment on above: Performed By: #### C BC, CMP, HS TROP, LIPASE #### [facility] [address] Platelet mean volume (Bld) [Entitic vol] 8.3 fL Normal 6.3-10.7 [facility] Comment on above: Performed By: #### C BC, CMP, HS TROP, LIPASE #### [facility] [address] [place] [address] [place] Platelets (Bld) [#/Vol] 236 10*3/uL Normal 150-450 [facility] Comment on above: Performed By: #### C BC, CMP, HS TROP, LIPASE #### [facility] [address] [place] [address] [place] RBC (Bld) [#/Vol] 4.29 10*6/uL Normal 3.60-5.00 [facility] Comment on above: Performed By: #### C BC, CMP, HS TROP, LIPASE #### [facility] [address] WBC (Bld) [#/Vol] 6.2 10*3/uL Normal 3.8-11.6 [facility] Comment on above: Performed By: #### C BC, CMP, HS TROP, LIPASE #### [facility] [address] Comprehensive Metabolic Pane nimesh 04-02-2023 Albumin [Mass/Vol] 4.2 g/dL Normal 3.5-5.7 [facility] Comment on above: Performed By: #### C BC, CMP, HS TROP, LIPASE #### [facility] [address] Albumin/Globulin [Mass ratio] 1.8 {ratio} Normal [facility] Comment on above: Performed By: #### C BC, CMP, HS TROP, LIPASE #### [facility] [address] ALP [Catalytic activity/Vol] 101 U/L Normal 34-104 [facility] Comment on above: Performed By: #### C BC, CMP, HS TROP, LIPASE #### [facility] [address] ALT [Catalytic activity/Vol] 11 U/L Normal 7-52 [facility] Comment on above: Performed By: #### C BC, CMP, HS TROP, LIPASE #### [facility] [address] Anion gap [Moles/Vol] Not performed Normal 6.0-15.0 [facility] Comment on above: Performed By: #### C BC, CMP, HS TROP, LIPASE #### [facility] [address] AST [Catalytic activity/Vol] 21 U/L Normal 13-39 [facility] Comment on above: Performed By: #### C BC, CMP, HS TROP, LIPASE #### [facility] [address] Bilirubin [Mass/Vol] 0.3 mg/dL Normal 0.3-1.0 [facility] Comment on above: Performed By: #### C BC, CMP, HS TROP, LIPASE #### [facility] [address] Calcium [Mass/Vol] 9.7 mg/dL Normal 8.6-10.3 [facility] Comment on above: Performed By: #### C BC, CMP, HS TROP, LIPASE #### [facility] [address] Chloride [Moles/Vol] 106 mmol/L Normal 98-107 [facility] Comment on above: Performed By: #### C BC, CMP, HS TROP, LIPASE #### [facility] [address] CO2 [Moles/Vol] 26.3 mmol/L Normal 21.0-31.0 [facility] Comment on above: Performed By: #### C BC, CMP, HS TROP, LIPASE #### [facility] [address] Creatinine [Mass/Vol] 0.82 mg/dL Normal 0.60-1.20 [facility] Comment on above: Performed By: #### C BC, CMP, HS TROP, LIPASE #### [facility] [address] Creatinine Clr Calc Pharmacy 62.75 [facility] Comment on above: Performed By: #### C BC, CMP, HS TROP, LIPASE #### [facility] [address] [place] [address] [place] GFR/1.73 sq M.predicted MDRD (S/P/Bld) [Vol rate/Area] mL/min/{1.73_m2} [facility] Comment on above: Performed By: #### C BC, CMP, HS TROP, LIPASE #### [facility] [address] [place] [address] [place] Globulin (S) [Mass/Vol] 2.4 g/dL Normal [facility] Comment on above: Performed By: #### C BC, CMP, HS TROP, LIPASE #### [facility] [address] Glucose [Mass/Vol] 90 mg/dL Normal 70-100 [facility] Comment on above: Result Comment: [place] Glucose Reference Range is dependent on time and content of last meal. Glucose of more than 200 mg/dL in a nonstressed, ambulatory subject supports the diagnosis of Diabetes Mellitus. ADA recommended reference range Performed By: #### C BC, CMP, HS TROP, LIPASE #### [facility] [address] Potassium Normal 3.5-5.1 [facility] Comment on above: Result Comment: Spec imen hemolyzed, redraw requested Performed By: #### C BC, CMP, HS TROP, LIPASE #### [facility] [address] Protein [Mass/Vol] 6.6 g/dL Normal 6.4-8.9 [facility] Comment on above: Performed By: #### C BC, CMP, HS TROP, LIPASE #### [facility] [address] Sodium [Moles/Vol] 137 mmol/L Normal 136-145 [facility] Comment on above: Performed By: #### C BC, CMP, HS TROP, LIPASE #### [facility] [address] [place] [address] [place] Urea nitrogen [Mass/Vol] 7 mg/dL Normal 7-25 [facility] Comment on above: Performed By: #### C BC, CMP, HS TROP, LIPASE #### [facility] [address] [place] [address] [place] Creatinine [Mass/volume] in Serum or PlasmaOrdered By: Nicole Posadas on 04-02-2023 Creatinine [Mass/Vol] 0.82 mg/dL 0.60-1.20 [facility] D-Dimer High Sensitivityon 0 04-02-2023 D-Dimer High Sensitivity < 200 Normal 0-243 [facility] Comment on above: Result Comment: The reference range for D-dimer is <243 ng/mL D-dimer units. D-dimer results must be used in conjunction with a clinical pretest probability (PTP) assessment model for deep vein thrombosis (DVT) and pulmonary embolism (PE). Results <230 ng/mL d-dimer units can be used as a negative predictor in patients with low or moderate probability for DVT/PE. Results above the exclusion threshold of 230 ng/ml D-dimer units for DVT/PE may indicate the need for further diagnostic testing. D-Dimer can be increased in hospitalized patients due to co-morbid conditions. A hematocrit value greater than 55% may lead to inaccurate results in coagulation testing. Patients having hematocrit values >55% require a special collection tube for coagulation studies. Please contact the laboratory at [phone] for redraw instructions. PERFORMED BY: [place] [address] PATHOLOGIST RESEARCH RECRUITER PAULA RODRIGUES M.D. Performed By: #### D DIMER #### [place] [id number] [facility] ECG 12 lead ECGon 04-02-2023 ECG 12 lead ECG [facility] Main [place] [address] [place] [address] Electrocardiograph Report Signed Patient: Chioma Arciniega MR#: [id number] : 1970 Acct:[id number] Age/Sex: 52 / F ADM Date: 04/02/23 Loc: ER Room: Type: [facility] ER Attending Dr: Ordering Provider: Nicole Posadas APRN Date of Service: 04/02/23 ECG/ECG 12 lead ECG: Abdominal Pain Copies to: Test Reason : Blood Pressure : 113/076 mmHG Vent. Rate : 081 BPM Atrial Rate : 081 BPM P-R Int : 126 ms QRS Dur : 074 ms QT Int : 352 ms P-R-T Axes : 059 072 069 degrees QTc Int : 408 ms Normal sinus rhythm Normal ECG When compared with ECG of 09-NOV-2022 15:19, No significant change was found Confirmed by XIANG KELLOGG MD ([id number]) on 04/02/2023 3:27:06 PM Referred By: Electronically Signed By:XIANG KELLOGG MD Transcribed By: MUS Signed By Xiang Kellogg MD 04/02/23 1527 Normal [facility] Eosinophils Auto (Bld) [#/Vo l]Ordered By: Nicole Posadas on 04-02-2023 Eosinophils (Bld) [#/Vol] 0.1 10*3/uL 0.0-0.45 [facility] Eosinophils/100 WBC Auto (Bl d)Ordered By: Nicole Posadas on 04-02-2023 Eosinophils/100 WBC (Bld) 1.7 % . [facility] Erythrocyte distribution wid th Auto (RBC) [Ratio]Ordered By: Nicole Posadas on 04-02-2023 Erythrocyte distribution width (RBC) [Ratio] 13.3 % 11.9-15.3 [facility] Fibrin D-dimer [Presence] in Platelet poor plasma by Latex agglutinationOrdered By: Nicole Posadas on 04-02-2023 Fibrin D-dimer LA Ql (PPP) < 200 ng/mL 0-243 [facility] Comment on above: The reference range [...] coagulation studies. Please contact the laboratory at [phone] for redraw instructions. Globulin Calc (S) [Mass/Vol] Ordered By: Nicole Posadas on 04-02-2023 Globulin (S) [Mass/Vol] 2.4 g/dL [facility] Glucose [Mass/volume] in Ser um or PlasmaOrdered By: Nicole Posadas on 04-02-2023 Glucose [Mass/Vol] 90 mg/dL 70-100 [facility] Comment on above: ADA recommended refe rence rangeRandom Glucose Reference Range is dependent on time and content of last meal. Glucose of more than 200 mg/dL in a nonstressed, ambulatory subject supports the diagnosis of Diabetes Mellitus. Hematocrit Auto (Bld) [Volum e fraction]Ordered By: Nicole Posadas on 04-02-2023 Hematocrit (Bld) [Volume fraction] 41.8 % 34.0-46.4 [facility] Hemoglobin [Mass/volume] in BloodOrdered By: Nicole Posadas on 04-02-2023 Hemoglobin (Bld) [Mass/Vol] 14.2 g/dL 11.8-15.4 [facility] Ketones Auto test strip (U) [Mass/Vol]Ordered By: Nicole Posadas on 04-02-2023 Ketones (U) [Mass/Vol] Negative Negative [facility] Leukocytes [#/volume] correc aurelia for nucleated erythrocytes in Blood by Automated counOrdered By: Nicole Posadas on 04-02-2023 WBC corrected for nucl RBC Auto (Bld) [#/Vol] 6.2 10*3/uL 3.8-11.6 [facility] Lipaseon 04-02-2023 Lipase [Catalytic activity/Vol] 186.0 U/L High 11.0-82.0 [facility] Comment on above: Result Comment: PERF ORMED BY: [place] [address] PATHOLOGIST RESEARCH RECRUITER PAULA RODRIGUES M.D. Performed By: #### C BC, CMP, HS TROP, LIPASE #### [facility] [address] Lipase [Enzymatic activity/v olume] in Serum or PlasmaOrdered By: Nicole Posadas on 04-02-2023 Lipase [Catalytic activity/Vol] 186.0 U/L 11.0-82.0 [facility] Lymphocytes Auto (Bld) [#/Vo l]Ordered By: Nicole Posadas on 04-02-2023 Lymphocytes (Bld) [#/Vol] 1.8 10*3/uL 1.00-4.8 [facility] Lymphocytes/100 WBC Auto (Bl d)Ordered By: Nicole Posadas on 04-02-2023 Lymphocytes/100 WBC (Bld) 29.2 % . [facility] MCH Auto (RBC) [Entitic mass ]Ordered By: Nicole Posadas on 04-02-2023 MCH (RBC) [Entitic mass] 33.1 pg 24.7-34.3 [facility] MCHC Auto (RBC) [Mass/Vol]Or dered By: Nicole Posadas on 04-02-2023 MCHC (RBC) [Mass/Vol] 34.0 g/dL 32.0-35.0 [facility] MCV Auto (RBC) [Entitic vol] Ordered By: Nicole Posadas on 04-02-2023 MCV (RBC) [Entitic vol] 97.4 fL 80-100 [facility] Monocyte distribution width [Entitic volume] in Blood by AutomatedOrdered By: Nicole Posadas on 04-02-2023 Monocyte distribution width Auto (Bld) [Entitic vol] 17.36 % 0.00-20.00 [facility] Monocytes Auto (Bld) [#/Vol] Ordered By: Nicole Posadas on 04-02-2023 Monocytes (Bld) [#/Vol] 0.6 10*3/uL 0.0-0.8 [facility] Monocytes/100 WBC Auto (Bld) Ordered By: Nicole Posadas on 04-02-2023 Monocytes/100 WBC (Bld) 9.8 % . [facility] Neutrophils Auto (Bld) [#/Vo l]Ordered By: Nicole Posadas on 04-02-2023 Neutrophils (Bld) [#/Vol] 3.6 10*3/uL 1.8-7.7 [facility] Neutrophils/100 WBC Auto (Bl d)Ordered By: Nicole Posadas on 04-02-2023 Neutrophils/100 WBC (Bld) 59.1 % . [facility] Nitrite Test strip Ql (U)Ord ered By: Nicole Posadas on 04-02-2023 Nitrite Ql (U) Negative Negative [facility] No Panel InformationOrdered By: Nicole Posadas on 04-02-2023 Estimated GFR (CKD-EPI) > 60.0 mL/Min [facility] Creatinine Clearance (Chem 62.75 [facility] Nucleated erythrocytes [Pres ence] in Blood by Automated countOrdered By: Nicole Posadas on 04-02-2023 Nucleated RBC Auto Ql (Bld) 0.1 /100{WBC} 0-0.5 [facility] Platelet mean volume Auto (B ld) [Entitic vol]Ordered By: Nicole Posadas on 04-02-2023 Platelet mean volume (Bld) [Entitic vol] 8.3 fL 6.3-10.7 [facility] Platelets Auto (Bld) [#/Vol] Ordered By: Nicole Posadas on 04-02-2023 Platelets (Bld) [#/Vol] 236 10*3/uL 150-450 [facility] Potassium [Moles/volume] in Serum or PlasmaOrdered By: Nicole Posadas on 04-02-2023 Potassium [Moles/Vol] 4.3 mmol/L 3.5-5.1 [facility] Protein Auto test strip (U) [Mass/Vol]Ordered By: Nicole Posadas on 04-02-2023 Protein (U) [Mass/Vol] Negative Negative [facility] Protein [Mass/volume] in Ser um or PlasmaOrdered By: Nicole Posadas on 04-02-2023 Protein [Mass/Vol] 6.6 g/dL 6.4-8.9 [facility] RBC Auto (Bld) [#/Vol]Ordere d By: Nicole Posadas on 04-02-2023 RBC (Bld) [#/Vol] 4.29 10*6/uL 3.60-5.00 [facility] Redraw Potassiumon Potassium [Moles/Vol] 4.3 mmol/L Normal 3.5-5.1 [facility] Comment on above: Result Comment: PERF ORMED BY: [facility] [address] [place] [address] PATHOLOGIST RESEARCH RECRUITER PAULA RODRIGUES M.D. Performed By: #### R LESLY Harris #### [facility] [address] Serum or plasma albumin/glob ulin mass ratioOrdered By: Nicole Posadas on 04-02-2023 Albumin/Globulin [Mass ratio] 1.8 {ratio} [facility] Serum or plasma anion gap de terminationOrdered By: Nicole Posadas on 04-02-2023 Anion gap [Moles/Vol] TNP [facility] Comment on above: Test not performed Sodium [Moles/volume] in Ser um or PlasmaOrdered By: Nicole Posadas on 04-02-2023 Sodium [Moles/Vol] 137 mmol/L 136-145 [facility] Specific gravity Auto test s trip (U) [Rel density]Ordered By: Nicole Posadas on 04-02-2023 Specific gravity (U) [Rel density] 1.022 1.001-1.030 [facility] Troponin I High Sensitivityo n 04-02-2023 Troponin I High Sensitivity 2.6 pg/mL Normal 0.0-15.0 [facility] Comment on above: Result Comment: PERF ORMED BY: [facility] [address] [place] [address] PATHOLOGIST RESEARCH RECRUITER PAULA RODRIGUES M.D. Performed By: #### C BC, CMP, HS TROP, LIPASE #### [facility] [address] Troponin I.cardiac [Mass/vol ume] in Serum or Plasma by Detection limit <= 0.01 ng/Ordered By: Nicole Posadas on 04-02-2023 Troponin I.cardiac DL <= 0.01 ng/mL [Mass/Vol] 2.6 pg/mL 0.0-15.0 [facility] Urea nitrogen [Mass/volume] in Serum or PlasmaOrdered By: Nicole Posadas on 04-02-2023 Urea nitrogen [Mass/Vol] 7 mg/dL 09-30 [facility] Urinalysison 04-02-2023 Appearance (U) Clear Normal Clear [facility] Comment on above: Order Comment: Name Collection Type:: Clean-Voided Midstream Performed By: #### U A #### [facility] [address] [place] [address] [place] Bilirubin,Urine Negative Normal Negative [facility] Comment on above: Order Comment: Name Collection Type:: Clean-Voided Midstream Performed By: #### U A #### [facility] [address] [place] [address] [place] Glucose Ql (U) Normal Normal Normal [facility] Comment on above: Order Comment: Name Collection Type:: Clean-Voided Midstream Performed By: #### U A #### [facility] [address] [place] [address] [place] Ketones Ql (U) Negative Normal Negative [facility] Comment on above: Order Comment: Name Collection Type:: Clean-Voided Midstream Performed By: #### U A #### [facility] [address] [place] [address] Leukocyte esterase Test strip Ql (U) Negative Normal Negative [facility] Comment on above: Order Comment: Name Collection Type:: Clean-Voided Midstream Performed By: #### U A #### [place] [address] [place] Nitrite,Urine Negative Normal Negative [facility] Comment on above: Order Comment: Name Collection Type:: Clean-Voided Midstream Performed By: #### U A #### [facility] [address] [place] [address] [place] Occult Blood,Urine Negative Normal Negative [facility] Comment on above: Order Comment: Name Collection Type:: Clean-Voided Midstream Result Comment: PERF ORMED BY: [place] [address] PATHOLOGIST RESEARCH RECRUITER PAULA RODRIGUES M.D. Performed By: #### U A #### [place] [address] [place] Protein,Urine Negative Normal Negative [facility] Comment on above: Order Comment: Name Collection Type:: Clean-Voided Midstream Performed By: #### U A #### [address] [place] [address] [place] Specificy Chilo,Urine 1.022 Normal 1.001-1.030 [facility] Comment on above: Order Comment: Name Collection Type:: Clean-Voided Midstream Performed By: #### U A #### [facility] [address] [place] [address] Urobilinogen,Urine Normal Normal Normal [facility] Comment on above: Order Comment: Name Collection Type:: Clean-Voided Midstream Performed By: #### U A #### [facility] [address] [place] [address] Urine clarity by refractomet ry automatedOrdered By: Nicole Posadas on 04-02-2023 Clarity Refractometry automated (U) Clear Clear [facility] Urine glucose measurement by automated test strip (mass/volume)Ordered By: Nicole Posadas on 04-02-2023 Glucose Auto test strip (U) [Mass/Vol] Normal mg/dL Normal [facility] Urine hemoglobin detection b y automated test stripOrdered By: Nicole Posadas on 04-02-2023 Hemoglobin Auto test strip Ql (U) Negative Negative [facility] Urine leukocyte esterase det ection by automated test stripOrdered By: Nicole Posadas on 04-02-2023 Leukocyte esterase Auto test strip Ql (U) Negative Negative [facility] Urine pH measurement by auto mated test stripOrdered By: Nicole Posadas on 04-02-2023 pH (U) 5.5 [pH] Normal 5.0-9.0 [facility] Comment on above: Order Comment: Name Collection Type:: Clean-Voided Midstream Performed By: #### U A #### [facility] [address] [place] [address] Urobilinogen Auto test strip (U) [Mass/Vol]Ordered By: Nicole Posadas on 04-02-2023 Urobilinogen (U) [Mass/Vol] Normal mg/dL Normal [facility] WBC Auto (Bld) [#/Vol]Ordere d By: Nicole Posadas on 04-02-2023 WBC (Bld) [#/Vol] 6.2 10*3/uL 3.8-11.6 [facility] CBC AND AUTO DIFFon 03-27-19 ABSOLUTE BASOPHIL 0.1 X10E9/L Normal 0.0-0.2 [facility] Comment on above: Performed By: #### C BCA, CMP, 3040-3, 76100-0, 26406-2, 48671- 9 #### [facility] ([id number]) [address] [place] [address] ABSOLUTE NEUTROPHIL 7.2 X10E9/L High 1.5-6.6 [facility] Comment on above: Performed By: #### C BCA, CMP, 3040-3, 49646-8, 49194-0, - 9 #### [facility] ([id number]) [address] [place] [address] Basophils/100 WBC (Bld) 0.6 % Normal [facility] Comment on above: Performed By: #### C BCA, CMP, 3040-3, 50095-6, 47142-2, 79907- 9 #### [facility] ([id number]) [address] [place] [address] Eosinophils (Bld) [#/Vol] 0.0 10*3/uL Normal 0.0-0.4 [facility] Comment on above: Performed By: #### C BCA, CMP, 3040-3, 57694-0, 05990-3, 58190- 9 #### [facility] ([id number]) [address] [place] [address] Eosinophils/100 WBC (Bld) 0.1 % Normal [facility] Comment on above: Performed By: #### C BCA, CMP, 3040-3, 36828-0, 70824-0, 70496- 9 #### [facility] ([id number]) [address] [place] [address] Erythrocyte distribution width (RBC) [Ratio] 13.7 % Normal 11.5-15.0 [facility] Comment on above: Performed By: #### C EZEQUIEL, BONNIE, 3040-3, 12083-9, 71818-2, - 9 #### [facility] ([id number]) [address] [place] [address] Hematocrit (Bld) [Volume fraction] 40.4 % Normal 35-47 [facility] Comment on above: Performed By: #### C EZEQUIEL, CMP, 3040-3, 77147-9, 56167-5, - 9 #### [facility] ([id number]) [address] [place] [address] Hemoglobin (Bld) [Mass/Vol] 13.8 g/dL Normal 11.7-15.5 [facility] Comment on above: Performed By: #### C EZEQUIEL, BONNIE, 3040-3, 92603-9, 17023-5, - 9 #### [facility] ([id number]) [address] [place] [address] Lymphocytes (Bld) [#/Vol] 1.7 10*3/uL Normal 1.0-3.5 [facility] Comment on above: Performed By: #### C EZEQUIEL, BONNIE, 3040-3, 07288-3, 71541-4, - 9 #### [facility] ([id number]) [address] [place] [address]0008 Lymphocytes/100 WBC (Bld) 17.8 % Normal [facility] Comment on above: Performed By: #### C EZEQUIEL, CMP, 3040-3, 00434-2, 39348-2, - 9 #### [facility] ([id number]) [address] [place] [address] 71251 MCH (RBC) [Entitic mass] 33.0 pg Normal 27-34 [facility] Comment on above: Performed By: #### C BCA, CMP, 3040-3, 99383-6, 79443-0, 17335- 9 #### [facility] ([id number]) [address] [place] [address] 36470 MCHC (RBC) [Mass/Vol] 34.1 g/dL Normal 32-36 [facility] Comment on above: Performed By: #### C BCA, CMP, 3040-3, 65091-1, 75643-9, 20716- 9 #### [facility] ([id number]) [address] [place] [address] 09954 MCV (RBC) [Entitic vol] 97 fL Normal 80-100 [facility] Comment on above: Performed By: #### C BCA, CMP, 3040-3, 08888-5, 07678-9, 03632- 9 #### [facility] ([id number]) [address] [place] [address] 29860 Monocytes (Bld) [#/Vol] 0.8 10*3/uL Normal 0-0.9 [facility] Comment on above: Performed By: #### C BCA, CMP, 3040-3, 05959-4, 01824-3, 46588- 9 #### [facility] ([id number]) [address] [place] [address] 03072 Monocytes/100 WBC (Bld) 7.8 % Normal [facility] Comment on above: Performed By: #### C BCA, CMP, 3040-3, 58596-1, 45431-7, 69764- 9 #### [facility] ([id number]) [address] [place] [address] 30819 Neutrophils/100 WBC (Bld) 73.7 % Normal [facility] Comment on above: Performed By: #### C BCA, CMP, 3040-3, 17492-1, 05973-5, 43294- 9 #### [facility] ([id number]) [address] [place] [address] 71909 Platelet mean volume (Bld) [Entitic vol] 7.6 fL Normal 7-12 [facility] Comment on above: Performed By: #### C BCA, CMP, 3040-3, 80438-4, 30813-8, 48880- 9 #### [facility] ([id number]) [address] [place] [address] 56374 Platelets (Bld) [#/Vol] 269 10*3/uL Normal 150-450 [facility] Comment on above: Performed By: #### C BCA, CMP, 3040-3, 54780-3, 78503-8, 00697- 9 #### [facility] ([id number]) [address] [place] [address] 72780 RBC COUNT 4.17 X10E12/L Normal 3.80-5.20 [facility] Comment on above: Performed By: #### C BCA, CMP, 3040-3, 65563-6, 14775-4, 82875- 9 #### [facility] ([id number]) [address] [place] [address] 75684 WBC (Bld) [#/Vol] 9.8 10*3/uL Normal 4.0-11.0 [facility] Comment on above: Performed By: #### C BCA, CMP, 3040-3, 16172-2, 61321-0, 43345- 9 #### [facility] ([id number]) [address] [place] [address] 23236 COMPREHENSIVE METABOLIC PANE Nimesh 03-27-2023 Albumin [Mass/Vol] 4.6 g/dL Normal 3.2-5.3 [facility] Comment on above: Performed By: #### C BCA, CMP, 3040-3, 07749-8, 07776-9, 97844- 9 #### [facility] ([id number]) [address] [place] [address] 30109 ALP [Catalytic activity/Vol] 125 U/L Normal 39-130 [facility] Comment on above: Performed By: #### C BCA, CMP, 3040-3, 90844-4, 08304-2, 51426- 9 #### [facility] ([id number]) [address] [place] [address] 13304 ALT [Catalytic activity/Vol] 17 U/L Normal 0-31 [facility] Comment on above: Performed By: #### C BCA, CMP, 3040-3, 87308-9, 63744-8, 38090- 9 #### [facility] ([id number]) [address] [place] [address] 69581 Anion gap [Moles/Vol] 10 mmol/L Normal 5-15 [facility] Comment on above: Performed By: #### C BCA, CMP, 3040-3, 85914-5, 76966-1, 08627- 9 #### [facility] ([id number]) [address] [place] [address] 84294 AST [Catalytic activity/Vol] 27 U/L Normal 0-41 [facility] Comment on above: Performed By: #### C BCA, CMP, 3040-3, 94575-5, 53558-1, 66031- 9 #### [facility] ([id number]) [address] [place] [address] 48065 Bilirubin [Mass/Vol] 0.4 mg/dL Normal 0.3-1.2 [facility] Comment on above: Performed By: #### C BCA, CMP, 3040-3, 31472-9, 48726-6, 65897- 9 #### [facility] ([id number]) [address] [place] [address] 87624 Calcium [Mass/Vol] 10.4 mg/dL Normal 8.5-10.5 [facility] Comment on above: Performed By: #### C BCA, CMP, 3040-3, 09078-1, 92942-6, 40615- 9 #### [facility] ([id number]) [address] [place] [address] 08097 Chloride [Moles/Vol] 103 mmol/L Normal 98-109 [facility] Comment on above: Performed By: #### C BCA, CMP, 3040-3, 24915-5, 20137-7, 51980- 9 #### [facility] ([id number]) [address] [place] [address] 37842 CO2 [Moles/Vol] 25 mmol/L Normal 22-32 [facility] Comment on above: Performed By: #### C BCA, CMP, 3040-3, 14262-9, 09942-0, 31408- 9 #### [facility] ([id number]) [address] [place] [address] 59172 Creatinine [Mass/Vol] 0.96 mg/dL Normal 0.40-1.00 [facility] Comment on above: Result Comment: METH OD TRACEABLE TO IDMS STANDARD Performed By: #### C BCA, CMP, 3040-3, 55575-4, 71648-8, 57070-1 #### [facility] ([id number]) [address] [place] [address] 49053 GFR/1.73 sq M.predicted among non-blacks MDRD (S/P/Bld) [Vol rate/Area] 71 mL/min/{1.73_m2} Normal >59 [facility] Comment on above: Result Comment: Reported eGFR is based on the CKD-EPI 2020 equation that does not use a race coefficient. Performed By: #### C BCA, CMP, 3040-3, 11143-4, 75792-4, 96967-2 #### [facility] ([id number]) [address] [place] [address] 09895 Glucose [Mass/Vol] 97 mg/dL Normal 65-99 [facility] Comment on above: Performed By: #### C BCA, CMP, 3040-3, 61219-9, 03130-7, 94874- 9 #### [facility] ([id number]) [address] [place] [address] 46701 Potassium [Moles/Vol] 4.2 mmol/L Normal 3.5-5.0 [facility] Comment on above: Performed By: #### C BCA, CMP, 3040-3, 12226-1, 25673-5, 42190- 9 #### [facility] ([id number]) [address] [place] [address] 73627 Protein [Mass/Vol] 7.4 g/dL Normal 6.0-8.0 [facility] Comment on above: Performed By: #### C BCA, CMP, 3040-3, 34619-6, 23408-5, 55445- 9 #### [facility] ([id number]) [address] [place] [address] 29215 Sodium [Moles/Vol] 138 mmol/L Normal 134-146 [facility] Comment on above: Performed By: #### C BCA, CMP, 3040-3, 30009-5, 79069-2, 59403- 9 #### [facility] ([id number]) [address] [place] [address] 44396 Urea nitrogen [Mass/Vol] 14 mg/dL Normal 5-23 [facility] Comment on above: Performed By: #### C BCA, CMP, 3040-3, 85240-4, 17109-7, 55441- 9 #### [facility] ([id number]) [address] [place] [address] ABDOMEN AND PELVIS W CONT on [...] Flower MD on 03/27/2023 12:55 AM Normal [facility] LIPASEon 03-27-2023 Lipase [Catalytic activity/Vol] 31 U/L Normal 17-40 [facility] Comment on above: Performed By: #### C EZEQUIEL, CMP, 3040-3, 38678-1, 47056-1, 04056- 9 #### [facility] ([id number]) [address] [place] [address], [place] [address] Lactate (P richard) [Moles/Vol]o n 03-27-2023 LACTATE W/REFLEX 1.2 mmol/L Normal 0.4-2.0 [facility] Comment on above: Result Comment: Result did not trigger repeat Lactate, re-order if needed. Performed By: #### C EZEQUIEL, CMP, 3040-3, 48958-8, 44523-2, 40096-0 #### [facility] ([id number]) [address] [place] [address] 16643 MAGNESIUMon 03-27-2023 Magnesium [Mass/Vol] 2.0 mg/dL Normal 1.8-2.6 [facility] Comment on above: Performed By: #### C BCA, CMP, 3040-3, 80772-6, 36435-5, - 9 #### [facility] ([id number]) [address] [place] [address] 71551 TROPONIN Ion 03-27-2023 Troponin I.cardiac [Mass/Vol] ng/mL Normal 0.00-0.04 [facility] Comment on above: Performed By: #### C BCA, CMP, 3040-3, 20808-6, 25338-6, 9 #### [facility] ([id number]) [address] [place] [address] 95005 Alanine aminotransferase [En zymatic activity/volume] in Serum or PlasmaOrdered By: Nicole Posadas on 11-09-2022 ALT [Catalytic activity/Vol] 12 U/L 7-52 [facility] Albumin [Mass/volume] in Ser um or Plasma by Bromocresol green (BCG) dye binding methoOrdered By: Nicole Posadas on 11-09-2022 Albumin BCG dye [Mass/Vol] 4.4 g/dL 3.5-5.7 [facility] Alkaline phosphatase [Enzyma tic activity/volume] in Serum or PlasmaOrdered By: Nicole Posadas on 11-09-2022 ALP [Catalytic activity/Vol] 126 U/L 34-104 [facility] Aspartate aminotransferase [ Enzymatic activity/volume] in Serum or PlasmaOrdered By: Nicole Posadas on 11-09-2022 AST [Catalytic activity/Vol] 17 U/L 13-39 [facility] Basophils Auto (Bld) [#/Vol] Ordered By: Nicole Posadas on 11-09-2022 Basophils (Bld) [#/Vol] 0.1 10*3/uL 0.0-0.2 [facility] Basophils/100 WBC Auto (Bld) Ordered By: Nicole Posadsa on 11-09-2022 Basophils/100 WBC (Bld) 0.9 % . [facility] Bilirubin Test strip Ql (U)O rdered By: Nicole Posadas on 11-09-2022 Bilirubin Ql (U) Negative Negative [facility] Bilirubin.total [Mass/volume ] in Serum or PlasmaOrdered By: Nicole Posadas on 11-09-2022 Bilirubin [Mass/Vol] 0.3 mg/dL 0.3-1.[address] [facility] CT abdomen pelvis w conon CT abdomen pelvis w con [facility] [place] [address] CT Scan Report Signed Patient: Chioma Arciniega MR#: [id number] : 1970 Acct:[id number] Age/Sex: 52 / F ADM Date: 11/09/22 Loc: ER Room: Type: [facility] ER Attending Dr: Copies [...] Rajeev Ulloa M.D.11/09/2022 4:14 PM Dictation Location: [place] [address] Transcribed By: [facility] 11/09/22 1614 Dictated By: Rajeev Ulloa II, MD 11/09/22 1608 Signed By: 11/09/22 1614 Normal [facility] Calcium [Mass/volume] in Ser um or PlasmaOrdered By: Nicole Posadas on 11-09-2022 Calcium [Mass/Vol] 9.7 mg/dL 8.6-10.3 [facility] Carbon dioxide, total [Moles /volume] in Serum or PlasmaOrdered By: Nicole Posadas on 11-09-2022 CO2 [Moles/Vol] 28.6 mmol/L 21.0-31.0 [facility] Chloride [Moles/volume] in S erika or PlasmaOrdered By: Nicole Posadas on 11-09-2022 Chloride [Moles/Vol] 107 mmol/L 98-107 [facility] Color Auto (U)Ordered By: Reshma Posadas on 11-09-2022 Color (U) Yellow Yellow [facility] Complete Blood Count Auto Di ffon 11-09-2022 Basophils (Bld) [#/Vol] 0.1 10*3/uL Normal 0.0-0.2 [facility] Comment on above: Result Comment: PERF ORMED BY: [place] [address] PATHOLOGIST RESEARCH RECRUITER PAULA RODRIGUES M.D. Performed By: #### D DIMER #### [address] Basophils/100 WBC (Bld) 0.9 % Normal . [facility] Comment on above: Performed By: #### D DIMER #### [address] Eosinophils (Bld) [#/Vol] 0.1 10*3/uL Normal 0.0-0.45 [facility] Comment on above: Performed By: #### D DIMER #### [address] Eosinophils/100 WBC (Bld) 1.6 % Normal . [facility] Comment on above: Performed By: #### D DIMER #### [address] Erythrocyte distribution width (RBC) [Ratio] 13.6 % Normal 11.9-15.3 [facility] Comment on above: Performed By: #### D DIMER #### [address] Hematocrit (Bld) [Volume fraction] 44.4 % Normal 34.0-46.4 [facility] Comment on above: Performed By: #### D DIMER #### [address] Hemoglobin (Bld) [Mass/Vol] 14.9 g/dL Normal 11.8-15.4 [facility] Comment on above: Performed By: #### D DIMER #### [address] Lymphocytes (Bld) [#/Vol] 2.2 10*3/uL Normal 1.00-4.8 [facility] Comment on above: Performed By: #### D DIMER #### [address] Lymphocytes/100 WBC (Bld) 24.0 % Normal . [facility] Comment on above: Performed By: #### D DIMER #### [address] MCH (RBC) [Entitic mass] 32.8 pg Normal 24.7-34.3 [facility] Comment on above: Performed By: #### D DIMER #### [address] MCV (RBC) [Entitic vol] 98.2 fL Normal 80-100 [facility] Comment on above: Performed By: #### D DIMER #### [address] Mean Corpuscular HGB Conc 33.4 g/dL Normal 32.0-35.0 [facility] Comment on above: Performed By: #### D DIMER #### [address] Monocytes (Bld) [#/Vol] 0.8 10*3/uL Normal 0.0-0.8 [facility] Comment on above: Performed By: #### D DIMER #### [address] Monocytes/100 WBC (Bld) 18.76 % Normal 0.00-20.00 [facility] Comment on above: Performed By: #### D DIMER #### [address] Monocytes/100 WBC (Bld) 8.1 % Normal . [facility] Comment on above: Performed By: #### D DIMER #### [address] Neutrophils (Bld) [#/Vol] 6.1 10*3/uL Normal 1.8-7.7 [facility] Comment on above: Performed By: #### D DIMER #### [address] Neutrophils/100 WBC (Bld) 65.4 % Normal . [facility] Comment on above: Performed By: #### D DIMER #### [address] NRBC% 0.0 /100{WBC} Normal 0-0.5 [facility] Comment on above: Performed By: #### D DIMER #### [address] Platelet mean volume (Bld) [Entitic vol] 8.3 fL Normal 6.3-10.7 [facility] Comment on above: Performed By: #### D DIMER #### [address] Platelets (Bld) [#/Vol] 246 10*3/uL Normal 150-450 [facility] Comment on above: Performed By: #### D DIMER #### [address] RBC (Bld) [#/Vol] 4.52 10*6/uL Normal 3.60-5.00 [facility] Comment on above: Performed By: #### D DIMER #### [address] WBC (Bld) [#/Vol] 9.3 10*3/uL Normal 3.8-11.6 [facility] Comment on above: Performed By: #### D DIMER #### [address] Comprehensive Metabolic Pane nimesh 11-09-2022 Albumin [Mass/Vol] 4.4 g/dL Normal 3.5-5.7 [facility] Comment on above: Performed By: #### D DIMER #### [address] Albumin/Globulin [Mass ratio] 1.6 {ratio} Normal [facility] Comment on above: Performed By: #### D DIMER #### [address] ALP [Catalytic activity/Vol] 126 U/L High 34-104 [facility] Comment on above: Performed By: #### D DIMER #### [address] ALT [Catalytic activity/Vol] 12 U/L Normal 7-52 [facility] Comment on above: Performed By: #### D DIMER #### [facility] [address] Anion gap [Moles/Vol] 8.1 mmol/L Normal 6.0-15.0 [facility] Comment on above: Performed By: #### D DIMER #### [facility] [address] AST [Catalytic activity/Vol] 17 U/L Normal 13-39 [facility] Comment on above: Performed By: #### D DIMER #### [facility] [address] [place] [address] Bilirubin [Mass/Vol] 0.3 mg/dL Normal 0.3-1.0 [facility] Comment on above: Performed By: #### D DIMER #### [facility] [address] [place] [address] Calcium [Mass/Vol] 9.7 mg/dL Normal 8.6-10.3 [facility] Comment on above: Performed By: #### D DIMER #### [facility] [address] [place] [address] Chloride [Moles/Vol] 107 mmol/L Normal 98-107 [facility] Comment on above: Performed By: #### D DIMER #### [facility] [address] [place] [address] CO2 [Moles/Vol] 28.6 mmol/L Normal 21.0-31.0 [facility] Comment on above: Performed By: #### D DIMER #### [facility] [address] [place] [address] Creatinine [Mass/Vol] 0.78 mg/dL Normal 0.60-1.20 [facility] Comment on above: Performed By: #### D DIMER #### [address] Creatinine Clr Calc Pharmacy 69.00 Normal [facility] Comment on above: Performed By: #### D DIMER #### [address] GFR/1.73 sq M.predicted MDRD (S/P/Bld) [Vol rate/Area] mL/min/{1.73_m2} [facility] Comment on above: Performed By: #### D DIMER #### [address] Globulin (S) [Mass/Vol] 2.7 g/dL [facility] Comment on above: Performed By: #### D DIMER #### [address] Glucose [Mass/Vol] 96 mg/dL Normal 70-100 [facility] Comment on above: Result Comment: [facility] Glucose Reference Range is dependent on time and content of last meal. Glucose of more than 200 mg/dL in a nonstressed, ambulatory subject supports the diagnosis of Diabetes Mellitus. ADA recommended reference range Performed By: #### D DIMER #### [address] Potassium [Moles/Vol] 3.7 mmol/L Normal 3.5-5.1 [facility] Comment on above: Performed By: #### D DIMER #### [address] Protein [Mass/Vol] 7.1 g/dL Normal 6.4-8.9 [facility] Comment on above: Performed By: #### D DIMER #### [place] [address] [place] Sodium [Moles/Vol] 140 mmol/L Normal 136-145 [facility] Comment on above: Performed By: #### D DIMER #### [place] [address] [place] Urea nitrogen [Mass/Vol] 6 mg/dL Low 7-25 [facility] Comment on above: Performed By: #### D DIMER #### [place] [address] [place] Creatinine [Mass/volume] in Serum or PlasmaOrdered By: Nicole Posadas on 11-09-2022 Creatinine [Mass/Vol] 0.78 mg/dL 0.60-1.20 [facility] ECG 12 lead ECGon 11-09-2022 ECG 12 lead ECG [facility] [place] [address] Electrocardiograph Report Signed Patient: Chioma Arciniega MR#: [id number] : 1970 Acct:[id number] Age/Sex: 52 / F ADM Date: 11/09/22 Loc: ER Room: Type: [facility] ER Attending Dr: Ordering Provider: Nicole [...] By Agustin Llanes MD 06/29 0147 Normal [facility] Eosinophils Auto (Bld) [#/Vo l]Ordered By: Nicole Posadas on 11-09-2022 Eosinophils (Bld) [#/Vol] 0.1 10*3/uL 0.0-0.45 [facility] Eosinophils/100 WBC Auto (Bl d)Ordered By: Nicole Posadas on 11-09-2022 Eosinophils/100 WBC (Bld) 1.6 % . [facility] Erythrocyte distribution wid th Auto (RBC) [Ratio]Ordered By: Nicole Posadas on 11-09-2022 Erythrocyte distribution width (RBC) [Ratio] 13.6 % 11.9-15.3 [facility] Globulin Calc (S) [Mass/Vol] Ordered By: Nicole Posadas on 11-09-2022 Globulin (S) [Mass/Vol] 2.7 g/dL [facility] Glucose [Mass/volume] in Ser um or PlasmaOrdered By: Nicole Posadas on 11-09-2022 Glucose [Mass/Vol] 96 mg/dL 70-100 [facility] Comment on above: ADA recommended refe rence rangeRandom Glucose Reference Range is dependent on time and content of last meal. Glucose of more than 200 mg/dL in a nonstressed, ambulatory subject supports the diagnosis of Diabetes Mellitus. Hematocrit Auto (Bld) [Volum e fraction]Ordered By: Nicole Posadas on 11-09-2022 Hematocrit (Bld) [Volume fraction] 44.4 % 34.0-46.4 [facility] Hemoglobin [Mass/volume] in BloodOrdered By: Nicole Posadas on 11-09-2022 Hemoglobin (Bld) [Mass/Vol] 14.9 g/dL 11.8-15.4 [facility] Ketones Auto test strip (U) [Mass/Vol]Ordered By: Nicole Posadas on 11-09-2022 Ketones (U) [Mass/Vol] Negative Negative [facility] Leukocytes [#/volume] correc aurelia for nucleated erythrocytes in Blood by Automated counOrdered By: Nicole Posadas on 11-09-2022 WBC corrected for nucl RBC Auto (Bld) [#/Vol] 9.3 10*3/uL 3.8-11.6 [facility] Lipaseon 11-09-2022 Lipase [Catalytic activity/Vol] 78.0 U/L Normal 11.0-82.0 [facility] Comment on above: Result Comment: PERF ORMED BY: [place] [address] PATHOLOGIST RESEARCH RECRUITER PAULA RODRIGUES M.D. Performed By: #### D DIMER #### [place] [address] [place] Lipase [Enzymatic activity/v olume] in Serum or PlasmaOrdered By: Nicole Posadas on 11-09-2022 Lipase [Catalytic activity/Vol] 78.0 U/L 11.0-82.0 [facility] Lymphocytes Auto (Bld) [#/Vo l]Ordered By: Nicole Posadas on 11-09-2022 Lymphocytes (Bld) [#/Vol] 2.2 10*3/uL 1.00-4.8 [facility] Lymphocytes/100 WBC Auto (Bl d)Ordered By: Nicole Posadas on 11-09-2022 Lymphocytes/100 WBC (Bld) 24.0 % . [facility] MCH Auto (RBC) [Entitic mass ]Ordered By: Nicole Posadas on 11-09-2022 MCH (RBC) [Entitic mass] 32.8 pg 24.7-34.3 [facility] MCHC Auto (RBC) [Mass/Vol]Or dered By: Nicole Posadas on 11-09-2022 MCHC (RBC) [Mass/Vol] 33.4 g/dL 32.0-35.0 [facility] MCV Auto (RBC) [Entitic vol] Ordered By: Nicole Posadas on 11-09-2022 MCV (RBC) [Entitic vol] 98.2 fL 80-100 [facility] Monocyte distribution width [Entitic volume] in Blood by AutomatedOrdered By: Nicole Posadas on 11-09-2022 Monocyte distribution width Auto (Bld) [Entitic vol] 18.76 % 0.00-20.00 [facility] Monocytes Auto (Bld) [#/Vol] Ordered By: Nicole Posadas on 11-09-2022 Monocytes (Bld) [#/Vol] 0.8 10*3/uL 0.0-0.8 [facility] Monocytes/100 WBC Auto (Bld) Ordered By: Nicole Posadas on 11-09-2022 Monocytes/100 WBC (Bld) 8.1 % . [facility] Neutrophils Auto (Bld) [#/Vo l]Ordered By: Nicole Posadas on 11-09-2022 Neutrophils (Bld) [#/Vol] 6.1 10*3/uL 1.8-7.7 [facility] Neutrophils/100 WBC Auto (Bl d)Ordered By: Nicole Posadas on 11-09-2022 Neutrophils/100 WBC (Bld) 65.4 % . [facility] Nitrite Test strip Ql (U)Ord ered By: Nicole Posadas on 11-09-2022 Nitrite Ql (U) Negative Negative [facility] No Panel InformationOrdered By: Nicole Posadas on 11-09-2022 Estimated GFR (CKD-EPI) > 60.0 mL/Min [facility] Creatinine Clearance (Chem 69.00 [facility] Nucleated erythrocytes [Pres ence] in Blood by Automated countOrdered By: Nicole Posadas on 11-09-2022 Nucleated RBC Auto Ql (Bld) 0.0 /100{WBC} 0-0.5 [facility] Platelet mean volume Auto (B ld) [Entitic vol]Ordered By: Nicole Posadas on 11-09-2022 Platelet mean volume (Bld) [Entitic vol] 8.3 fL 6.3-10.7 [facility] Platelets Auto (Bld) [#/Vol] Ordered By: Nicole Posadas on 11-09-2022 Platelets (Bld) [#/Vol] 246 10*3/uL 150-450 [facility] Potassium [Moles/volume] in Serum or PlasmaOrdered By: Nicole Posadas on 11-09-2022 Potassium [Moles/Vol] 3.7 mmol/L 3.5-5.1 [facility] Protein Auto test strip (U) [Mass/Vol]Ordered By: Nicole Posadas on 11-09-2022 Protein (U) [Mass/Vol] Negative Negative [facility] Protein [Mass/volume] in Ser um or PlasmaOrdered By: Nicole Posadas on 11-09-2022 Protein [Mass/Vol] 7.1 g/dL 6.4-8.9 [facility] RBC Auto (Bld) [#/Vol]Ordere d By: Nicole Posadas on 11-09-2022 RBC (Bld) [#/Vol] 4.52 10*6/uL 3.60-5.00 [facility] Serum or plasma albumin/glob ulin mass ratioOrdered By: Nicole Posadas on 11-09-2022 Albumin/Globulin [Mass ratio] 1.6 {ratio} [facility] Serum or plasma anion gap de terminationOrdered By: Nicole Posadas on 11-09-2022 Anion gap [Moles/Vol] 8.1 mmol/L 6.0-15.0 [facility] Sodium [Moles/volume] in Ser um or PlasmaOrdered By: Nicole Posadas on 11-09-2022 Sodium [Moles/Vol] 140 mmol/L 136-145 [facility] Specific gravity Auto test s trip (U) [Rel density]Ordered By: Nicole Posadas on 11-09-2022 Specific gravity (U) [Rel density] 1.012 1.001-1.030 [facility] Troponin I High Sensitivityo n 11-09-2022 Troponin I High Sensitivity 3.0 pg/mL Normal 0.0-15.0 [facility] Comment on above: Result Comment: PERF ORMED BY: [address] [place] [address] PATHOLOGIST RESEARCH RECRUITER PAULA RODRIGUES M.D. Performed By: #### D DIMER #### [facility] [address] [place] [address] Troponin I.cardiac [Mass/vol ume] in Serum or Plasma by Detection limit <= 0.01 ng/Ordered By: Nicole Posadas on 11-09-2022 Troponin I.cardiac DL <= 0.01 ng/mL [Mass/Vol] 3.0 pg/mL 0.0-15.0 [facility] Urea nitrogen [Mass/volume] in Serum or PlasmaOrdered By: Nicole Posadas on 11-09-2022 Urea nitrogen [Mass/Vol] 6 mg/dL 7-25 [facility] Urinalysison 11-09-2022 Appearance (U) Clear Normal Clear [facility] Comment on above: Order Comment: Name Collection Type:: Clean-Voided Midstream Performed By: #### D DIMER #### [facility] [address] [place] [address] [place] Bilirubin,Urine Negative Normal Negative [facility] Comment on above: Order Comment: Name Collection Type:: Clean-Voided Midstream Performed By: #### D DIMER #### [address] [address] [place] Color (U) Yellow Normal Yellow [facility] Comment on above: Order Comment: Name Collection Type:: Clean-Voided Midstream Performed By: #### D DIMER #### [facility] [address] [place] [address] Glucose Ql (U) Normal Normal Normal [facility] Comment on above: Order Comment: Name Collection Type:: Clean-Voided Midstream Performed By: #### D DIMER #### [facility] [address] [place] [address] Ketones Ql (U) Negative Normal Negative [facility] Comment on above: Order Comment: Name Collection Type:: Clean-Voided Midstream Performed By: #### D DIMER #### [facility] [address] [place] [address] Leukocyte esterase Test strip Ql (U) Negative Normal Negative [facility] Comment on above: Order Comment: Name Collection Type:: Clean-Voided Midstream Performed By: #### D DIMER #### [facility] [address] [place] [address] Nitrite,Urine Negative Normal Negative [facility] Comment on above: Order Comment: Name Collection Type:: Clean-Voided Midstream Performed By: #### D DIMER #### [facility] [address] [place] [address] Occult Blood,Urine Negative Normal Negative [facility] Comment on above: Order Comment: Name Collection Type:: Clean-Voided Midstream Result Comment: PERF ORMED BY: [place] [address] PATHOLOGIST RESEARCH RECRUITER PAULA RODRIGUES M.D. Performed By: #### D DIMER #### [facility] [address] [place] [address] [place] pH (U) 5.5 [pH] Normal 5.0-9.0 [facility] Comment on above: Order Comment: Name Collection Type:: Clean-Voided Midstream Performed By: #### D DIMER #### [facility] [address] [place] [address] Protein,Urine Negative Normal Negative [facility] Comment on above: Order Comment: Name Collection Type:: Clean-Voided Midstream Performed By: #### D DIMER #### [facility] [address] Specificy [place],Urine 1.012 Normal 1.001-1.030 [facility] Comment on above: Order Comment: Name Collection Type:: Clean-Voided Midstream Performed By: #### D DIMER #### [facility] [address] [place] [address] [place] Urobilinogen,Urine Normal Normal Normal [facility] Comment on above: Order Comment: Name Collection Type:: Clean-Voided Midstream Performed By: #### D DIMER #### [facility] [address] Urine clarity by refractomet ry automatedOrdered By: Nicole Posadas on 11-09-2022 Clarity Refractometry automated (U) Clear Clear [facility] Urine glucose measurement by automated test strip (mass/volume)Ordered By: Nicole Posadas on 11-09-2022 Glucose Auto test strip (U) [Mass/Vol] Normal mg/dL Normal [facility] Urine hemoglobin detection b y automated test stripOrdered By: Nicole Posadas on 11-09-2022 Hemoglobin Auto test strip Ql (U) Negative Negative [facility] Urine leukocyte esterase det ection by automated test stripOrdered By: Nicole Posadas on 11-09-2022 Leukocyte esterase Auto test strip Ql (U) Negative Negative [facility] Urobilinogen Auto test strip (U) [Mass/Vol]Ordered By: Nicole Posadas on 11-09-2022 Urobilinogen (U) [Mass/Vol] Normal mg/dL Normal [facility] WBC Auto (Bld) [#/Vol]Ordere d By: Nicole Posadas on 11-09-2022 WBC (Bld) [#/Vol] 9.3 10*3/uL 3.8-11.6 [facility] pH Auto test strip (U)Ordere d By: Nicole Posadas on 11-09-2022 pH (U) 5.5 [pH] 5.0-9.0 [facility] UPPER EUSon 08-12-2022 [facility] Gastroenterology Patient Name: Chioma Rainey Procedure Date: 08/12/2022 11:09 AM Date of : 1970 Admit Type: Outpatient Age: 52 Room: EUS Proc Room 01 Gender: Female Note Status: Finalized Attending MD: Sabrina Dee MD, MPH, [id number] Procedure: Upper EUS Indications: Chronic pancreatitis, Epigastric abdominal pain, Celiac plexus block for pain secondary to chronic pancreatitis, Dysphagia, Follow-up of esophageal stenosis, For therapy of esophageal stenosis Providers: Sabrnia Dee MD, MPH (Doctor), Kolby Gifford RN (Nurse), Elba Faustin (Nurse), Mary Gaviria Veneer Stock Layer (Veneer Stock Layer) Referring MD: Elie Nichols MD (Referring MD) [...] by the physician, the nurse and the marketing systems analyst in the procedure room. Mental Status Examination: [...] abnor (more content not included)... LAB, [facility] Radiology Study observation (narrative) [facility] AMYLASEon 06-13-2022 Amylase [Catalytic activity/Vol] 92 U/L Normal 25-115 [facility] Comment on above: Performed By: #### L IPA, CMP, CRP, NAT #### [facility] [address] [place] [address] Dr. Keturah Fisher CBC AUTO DIFFon 06-13-2022 BASO # 0.1 103/ul Normal 0.0-0.1 [facility] Comment on above: Performed By: #### L IPA, CMP, CRP, NAT #### [facility] [address] [place] [address] [address] Keturah Fisher Basophils/100 WBC (Bld) 0.7 % Normal 0.2-2.0 [facility] Comment on above: Performed By: #### L IPA, CMP, CRP, NAT #### [facility] [address] [place] [address] Dr. Keturah Fisher EO # 0.1 103/ul Normal 0.0-0.7 [facility] Comment on above: Performed By: #### L IPA, CMP, CRP, NAT #### [facility] [address] [place] [address] Dr. Keturah Fisher Eosinophils/100 WBC (Bld) 1.1 % Normal 0.9-7.0 [facility] Comment on above: Performed By: #### L IPA, CMP, CRP, NAT #### [facility] [address] [place] [address] Dr. Keturah Fisher Erythrocyte distribution width (RBC) [Ratio] 13.0 % Normal 11.0-15.0 [facility] Comment on above: Performed By: #### L IPA, CMP, CRP, NAT #### [facility] [address] [place] [address] Dr. Keturah Fisher Hematocrit (Bld) [Volume fraction] 40.5 % Normal 36.0-48.0 [facility] Comment on above: Performed By: #### L IPA, CMP, CRP, NAT #### [facility] [address] [place] [address] Dr. Keturah Fisher Hemoglobin (Bld) [Mass/Vol] 13.9 g/dL Normal 12.0-16.0 [facility] Comment on above: Performed By: #### L IPA, CMP, CRP, NAT #### [facility] [address] [place] [address] Dr. Keturah Fisher IG # 0.03 10e3/ul Normal 0.00-0.03 [facility] Comment on above: Performed By: #### L IPA, CMP, CRP, NAT #### [facility] [address] [place] [address] Dr. Keturah Fisher IG % 0.3 % Normal 0.0-0.5 [facility] Comment on above: Performed By: #### L IPA, CMP, CRP, NAT #### [facility] [address] [place] [address] Dr. Keturah Fisher LYMPH # 2.9 103/ul Normal 1.2-3.8 [facility] Comment on above: Performed By: #### L IPA, CMP, CRP, NAT #### [facility] [address] [place] [address] [address] Keturah Fisher Lymphocytes/100 WBC (Bld) 25.0 % Normal 20.5-60.0 [facility] Comment on above: Performed By: #### L IPA, CMP, CRP, NAT #### [facility] [address] [address] [address] Keturah Fisher MANUAL DIFF REQ NO Normal [facility] Comment on above: Performed By: #### L IPA, CMP, CRP, NAT #### [facility] [address] [place] [address] Dr. Keturah Fisher MCH (RBC) [Entitic mass] 33.3 pg Normal 26.7-34.0 [facility] [place] Comment on above: Performed By: #### L IPA, CMP, CRP, NAT #### [facility] [address] [place] [address] Dr. Keturah Fisher MCHC (RBC) [Mass/Vol] 34.3 g/dL Normal 29.9-35.2 [facility] [place] Comment on above: Performed By: #### L IPA, CMP, CRP, NAT #### [facility] [address] [address] [address] Keturah Fisher MCV (RBC) [Entitic vol] 96.9 fL Normal 81.0-99.0 [facility] [place] Comment on above: Performed By: #### L IPA, CMP, CRP, NAT #### [facility] [address] [place] [address] Dr. Keturah Fisher MONO # 0.7 103/ul Normal 0.3-0.8 [facility] [place] Comment on above: Performed By: #### L IPA, CMP, CRP, NAT #### [facility] [address] [place] [address] Dr. Keturah Fisher Monocytes/100 WBC (Bld) 5.6 % Normal 1.7-12.0 [facility] [place] Comment on above: Performed By: #### L IPA, CMP, CRP, NAT #### [facility] [address] [place] [address] Dr. Keturah Fisher NEUT # 7.8 103/ul Critically high 1.4-6.[address] [facility] Comment on above: Performed By: #### L IPA, CMP, CRP, NAT #### [facility] [address] [place] [address] Dr. Keturah Fisher Neutrophils/100 WBC (Bld) 67.3 % Normal 43.0-75.0 [facility] Comment on above: Performed By: #### L IPA, CMP, CRP, NAT #### [facility] [address] [place] [address] Dr. Keturah Fisher Platelet mean volume (Bld) [Entitic vol] 9.5 fL Normal 9.5-13.5 [facility] Comment on above: Performed By: #### L IPA, CMP, CRP, NAT #### [facility] [address] [place] [address] Dr. Keturah Fisher PLT 227 103/ul Normal 150-450 [facility] Comment on above: Performed By: #### L IPA, CMP, CRP, NAT #### [facility] [address] [place] [address] Dr. Keturah Fisher RBC 4.18 106/ul Critically low 4.20-5.[address] [facility] Comment on above: Performed By: #### L IPA, CMP, CRP, NAT #### [facility] [address] [place] [address] Dr. Keturah Fisher WBC 11.5 103/ul Critically high 4.0-11.0 [facility] Comment on above: Performed By: #### L IPA, CMP, CRP, NAT #### [facility] [address] [place] [address] Dr. Keturah Fisher LIPASEon 06-13-2022 Lipase [Catalytic activity/Vol] 168.0 U/L Normal 73.0-393.0 [facility] Comment on above: Performed By: #### L IPA, CMP, CRP, NAT #### [facility] [address] [place] [address] Dr. Keturah Fisher PROF 14(COMP METB)on 023 Albumin [Mass/Vol] 3.6 g/dL Normal 3.4-5.0 [facility] Comment on above: Performed By: #### L IPA, CMP, CRP, NAT #### [facility] [address] [place] [address] Dr. Keturah Fisher Albumin/Globulin [Mass ratio] 1.1 {ratio} Normal [facility] [place] Comment on above: Performed By: #### L IPA, CMP, CRP, NAT #### [facility] [address] [place] [address] Dr. Keturah Fisher ALP [Catalytic activity/Vol] 132 U/L Critically high 46-116 [facility] [place] Comment on above: Performed By: #### L IPA, CMP, CRP, NAT #### [facility] [address] [place] [address] Dr. Keturah Fisher ALT [Catalytic activity/Vol] 20 U/L Normal 14-59 [facility] [place] Comment on above: Performed By: #### L IPA, CMP, CRP, NAT #### [facility] [address] [place] [address] Dr. Keturah Fisher Anion gap [Moles/Vol] 13.7 mmol/L Normal [facility] Comment on above: Performed By: #### L IPA, CMP, CRP, NAT #### [facility] [address] [place] [address] Dr. Keturah Fisher AST [Catalytic activity/Vol] 19 U/L Normal 15-37 [facility] [place] Comment on above: Performed By: #### L IPA, CMP, CRP, NAT #### [facility] [address] [place] [address] Dr. Keturah Fisher Bilirubin [Mass/Vol] 0.1 mg/dL Critically low 0.2-1.0 [facility] [place] Comment on above: Performed By: #### L IPA, CMP, CRP, NAT #### [facility] [address] [place] [address] Dr. Keturah Fisher Calcium [Mass/Vol] 10.1 mg/dL Normal 8.5-10.1 [facility] Comment on above: Performed By: #### L IPA, CMP, CRP, NAT #### [facility] [address] [address] [address] Keturah Fisher Chloride [Moles/Vol] 104 mmol/L Normal 98-107 [facility] [place] Comment on above: Performed By: #### L IPA, CMP, CRP, NAT #### [facility] [address] [place] [address] Dr. Keturah Fisher CO2 [Moles/Vol] 26.7 mmol/L Normal 21.0-32.0 [facility] Comment on above: Performed By: #### L IPA, CMP, CRP, NAT #### [facility] [address] [address] [address] Keturah Fisher Creatinine [Mass/Vol] 0.83 mg/dL Normal 0.55-1.02 [facility] [place] Comment on above: Performed By: #### L IPA, CMP, CRP, NAT #### [facility] [address] [place] [address] Dr. Keturah Fisher EGFR-AF CITIZEN OF [place] >60 Normal >=60 [facility] Comment on above: Performed By: #### L IPA, CMP, CRP, NAT #### [facility] [address] [place] [address] Dr. Keturah Fisher EGFR-NON AF CITIZEN OF [place] >60 Normal >=60 [facility] [place] Comment on above: Performed By: #### L IPA, CMP, CRP, NAT #### [facility] [address] [place] [address] Dr. Keturah Fisher Globulin (S) [Mass/Vol] 3.4 g/dL Normal [facility] [place] Comment on above: Performed By: #### L IPA, CMP, CRP, NAT #### [facility] [address] [place] [address] Dr. Keturah Fisher Glucose [Mass/Vol] 115 mg/dL Critically high 74-106 [facility] Comment on above: Performed By: #### L IPA, CMP, CRP, NAT #### [facility] [address] [place] [address] Dr. Keturah Fisher Potassium [Moles/Vol] 3.4 mmol/L Critically low 3.5-5.1 [facility] [place] Comment on above: Performed By: #### L IPA, CMP, CRP, NAT #### [facility] [address] [address] [address] Keturah Fisher Protein [Mass/Vol] 7.0 g/dL Normal 6.4-8.2 [facility] Comment on above: Performed By: #### L IPA, CMP, CRP, NAT #### [facility] [address] [place] [address] Dr. Keturah Fisher Sodium [Moles/Vol] 141 mmol/L Normal 136-145 [facility] Comment on above: Performed By: #### L IPA, CMP, CRP, NAT #### [facility] [address] [address] [address] Keturah Fisher Urea nitrogen [Mass/Vol] 9.0 mg/dL Normal 7.0-18.0 [facility] [place] Comment on above: Performed By: #### L IPA, CMP, CRP, NAT #### [facility] [address] [place] [address] Dr. Keturah Fisher Urea nitrogen/Creatinine [Mass ratio] 10.8 mg/mg Normal [facility] [place] Comment on above: Performed By: #### L IPA, CMP, CRP, NAT #### [facility] [address] [place] [address] Dr. Keturah Fisher XR ABD FLAT UP_PA [...] by: ION KRUSE Date: 2022-06-13 17:10 Normal [facility] [place] AMYLASEon 03-29-2022 Amylase [Catalytic activity/Vol] 141 U/L Critically high 25-115 [facility] Comment on above: Performed By: #### L IVER, LIPA, BMP, NAT ####[facility] [address] [address]Dr. Keturah Fisher CBC AUTO DIFFon 03-29-2022 BASO # 0.1 103/ul Normal 0.0-0.1 [facility] [place] Comment on above: Performed By: #### L IPA, CMP, CRP, NAT #### [facility] [address] [place] [address] Dr. Keturah Fisher Basophils/100 WBC (Bld) 0.6 % Normal 0.2-2.0 [facility] Comment on above: Performed By: #### L IPA, CMP, CRP, NAT #### [facility] [address] [place] [address] Dr. Keturah Fisher EO # 0.1 103/ul Normal 0.0-0.7 [facility] Comment on above: Performed By: #### L IPA, CMP, CRP, NAT #### [facility] [address] [place] [address] Dr. Keturah Fisher Eosinophils/100 WBC (Bld) 0.7 % Critically low 0.9-7.0 [facility] [place] Comment on above: Performed By: #### L IPA, CMP, CRP, NAT #### [facility] [address] [place] [address] Dr. Keturah Fisher Erythrocyte distribution width (RBC) [Ratio] 12.9 % Normal 11.0-15.0 [facility] [place] Comment on above: Performed By: #### L IPA, CMP, CRP, NAT #### [facility] [address] [place] [address] Dr. Keturah Fisher Hematocrit (Bld) [Volume fraction] 39.7 % Normal 36.0-48.0 [facility] [place] Comment on above: Performed By: #### L IPA, CMP, CRP, NAT #### [facility] [address] [place] [address] Dr. Keturah Fisher Hemoglobin (Bld) [Mass/Vol] 14.7 g/dL Normal 12.0-16.0 [facility] [place] Comment on above: Performed By: #### L IPA, CMP, CRP, NAT #### [facility] [address] [address] [address] Keturah Fisher IG # 0.04 10e3/ul Critically high 0.00-0.03 [facility] Comment on above: Performed By: #### L IPA, CMP, CRP, NAT #### [facility] [address] [place] [address] Dr. Keturah Fisher IG % 0.4 % Normal 0.0-0.5 [facility] [place] Comment on above: Performed By: #### L IPA, CMP, CRP, NAT #### [facility] [address] [place] [address] Dr. Keturah Fisher LYMPH # 2.1 103/ul Normal 1.2-3.8 [facility] [place] Comment on above: Performed By: #### L IPA, CMP, CRP, NAT #### [facility] [address] [place] [address] Dr. Keturah Fisher Lymphocytes/100 WBC (Bld) 21.2 % Normal 20.5-60.0 [facility] [place] Comment on above: Performed By: #### L IPA, CMP, CRP, NAT #### [facility] [address] [place] [address] Dr. Keturah Fisher MANUAL DIFF REQ NO Normal [facility] Comment on above: Performed By: #### L IPA, CMP, CRP, NAT #### [facility] [address] [place] [address] Dr. Keturah Fisher MCH (RBC) [Entitic mass] 33.0 pg Normal 26.7-34.0 [facility] [place] Comment on above: Performed By: #### L IPA, CMP, CRP, NAT #### [facility] [address] [place] [address] Dr. Keturah Fisher MCHC (RBC) [Mass/Vol] 37.0 g/dL Critically high 29.9-35.2 [facility] [place] Comment on above: Performed By: #### L IPA, CMP, CRP, NAT #### [facility] [address] [place] [address] Dr. Keturah Fisher MCV (RBC) [Entitic vol] 89.0 fL Normal 81.0-99.0 [facility] Comment on above: Performed By: #### L IPA, CMP, CRP, NAT #### [facility] [address] [place] [address] Dr. Keturah Fisher MONO # 1.0 103/ul Critically high 0.3-0.[address] [facility] Comment on above: Performed By: #### L IPA, CMP, CRP, NAT #### [facility] [address] [place] [address] Dr. Keturah Fisher Monocytes/100 WBC (Bld) 10.3 % Normal 1.7-12.0 [facility] Comment on above: Performed By: #### L IPA, CMP, CRP, NAT #### [facility] [address] [place] [address] Dr. Keturah Fisher NEUT # 6.5 103/ul Normal 1.4-6.5 [facility] Comment on above: Performed By: #### L IPA, CMP, CRP, NAT #### [facility] [address] [place] [address] Dr. Keturah Fisher Neutrophils/100 WBC (Bld) 66.8 % Normal 43.0-75.0 [facility] Comment on above: Performed By: #### L IPA, CMP, CRP, NAT #### [facility] [address] [place] [address] Dr. Keturah Fisher Platelet mean volume (Bld) [Entitic vol] 9.2 fL Critically low 9.5-13.5 [facility] Comment on above: Performed By: #### L IPA, CMP, CRP, NAT #### [facility] [address] [place] [address] Dr. Keturah Fisher PLT 229 103/ul Normal 150-450 [facility] Comment on above: Performed By: #### L IPA, CMP, CRP, NAT #### [facility] [address] [place] [address] Dr. Keturah Fisher RBC 4.46 106/ul Normal 4.20-5.40 [facility] Comment on above: Performed By: #### L IPA, CMP, CRP, NAT #### [facility] [address] [address] [address] Keturah Fisher WBC 9.7 103/ul Normal 4.0-11.0 [facility] [place] Comment on above: Performed By: #### L IPA, CMP, CRP, NAT #### [facility] [address] [address] [address] Keturah Fisher LACTATE/LACTIC ACIDon 2022 Lactate [Moles/Vol] 0.5 mmol/L Normal 0.4-1.9 [facility] Comment on above: Performed By: #### L IPA, CMP, CRP, NAT #### [facility] [address] [address] [address] Keturah Fisher LIPASEon 03-29-2022 Lipase [Catalytic activity/Vol] 308.0 U/L Normal 73.0-393.0 [facility] [place] Comment on above: Performed By: #### L IVER, LIPA, BMP, NAT ####[facility] [address] [address]Dr. Keturah Fisher LIVER PROFILEon 03-29-2022 Albumin [Mass/Vol] 3.3 g/dL Critically low 3.4-5.0 [facility] Comment on above: Performed By: #### L IVER, LIPA, BMP, NAT ####[facility] [address] [address]Dr. Keturah Fisher Albumin/Globulin [Mass ratio] 0.8 {ratio} Normal [facility] [place] Comment on above: Performed By: #### L IVER, LIPA, BMP, NAT ####[facility] [address] [address]Dr. Keturah Fisher ALP [Catalytic activity/Vol] 182 U/L Critically high 46-116 [facility] [place] Comment on above: Performed By: #### L IVER, LIPA, BMP, NAT ####[facility] [address] [address]Dr. Keturah Fisher ALT [Catalytic activity/Vol] 16 U/L Normal 14-59 [facility] [place] Comment on above: Performed By: #### L IVER, LIPA, BMP, NAT ####[facility] [address] [address]Dr. Keturah Fisher AST [Catalytic activity/Vol] 26 U/L Normal 15-37 [facility] [place] Comment on above: Performed By: #### L IVER, LIPA, BMP, NAT ####[facility] [address] [address]Dr. Keturah Fisher BILI, CONJUGATED 0.0 mg/dL Normal 0.0-0.2 [facility] Comment on above: Performed By: #### L IVER, LIPA, BMP, NAT ####[facility] [address] [place], [place] [address]Dr. Keturah Fisher Bilirubin [Mass/Vol] 0.3 mg/dL Normal 0.2-1.0 [facility] [place] Comment on above: Performed By: #### L IVER, LIPA, BMP, NAT ####[facility] [address] [place], [place] [address]Dr. Keturah Fisher Globulin (S) [Mass/Vol] 3.9 g/dL Normal [facility] [place] Comment on above: Performed By: #### L IVER, LIPA, BMP, NAT ####[facility] [address] [place], [place] [address]Dr. Keturah Fisher Protein [Mass/Vol] 7.2 g/dL Normal 6.4-8.2 [facility] Comment on above: Performed By: #### L IVER, LIPA, BMP, NAT ####[facility] [address] [place], [place] [address]Dr. Keturah Fisher PROF CHEM 8 (BAS METB)on Anion gap [Moles/Vol] 14.6 mmol/L Normal [facility] Comment on above: Performed By: #### L IVER, LIPA, BMP, NAT ####[facility] [address] [place], [place] [address]Dr. Keturah Fisher Calcium [Mass/Vol] 10.1 mg/dL Normal 8.5-10.1 [facility] Comment on above: Performed By: #### L IVER, LIPA, BMP, NAT ####[facility] [address] [address]Dr. Keturah Fisher Chloride [Moles/Vol] 104 mmol/L Normal 98-107 [facility] Comment on above: Performed By: #### L IVER, LIPA, BMP, NAT ####[facility] [address] [address]Dr. Keturah Fisher CO2 [Moles/Vol] 24.8 mmol/L Normal 21.0-32.0 [facility] Comment on above: Performed By: #### L IVHERMINIA, LIPA, BMP, NAT ####[facility] [address] [place], [place] [address]Dr. Keturah Fisher Creatinine [Mass/Vol] 0.61 mg/dL Normal 0.55-1.02 [facility] Comment on above: Performed By: #### L IVER, LIPA, BMP, NAT ####[facility] [address] [place], [place] [address]Dr. Keturah Fisher EGFR-AF CITIZ[place] OF [place] >60 Normal >=60 [facility] Comment on above: Performed By: #### L IVER, LIPA, BMP, NAT ####[facility] [address] [place], [place] [address]Dr. Yieli Fisher EGFR-NON AF CITIZEN OF [place] >60 Normal >=60 [facility] Comment on above: Performed By: #### L IVER, LIPA, BMP, NAT ####[facility] [address] [address]Dr. Keturah Fisher Glucose [Mass/Vol] 98 mg/dL Normal 74-106 [facility] Comment on above: Performed By: #### L IVER, LIPA, BMP, NAT ####[facility] [address] [address]Dr. Keturah Fisher Potassium [Moles/Vol] 4.4 mmol/L Normal 3.5-5.1 [facility] Comment on above: Performed By: #### L IVER, LIPA, BMP, NAT ####[facility] [address] [place], [place] [address]Ic. Keturah Fisher Sodium [Moles/Vol] 139 mmol/L Normal 136-145 [facility] Comment on above: Performed By: #### L IVER, LIPA, BMP, NAT ####[facility] [address] [place], [place] [address]Fs. Keturah Fisher Urea nitrogen [Mass/Vol] 7.0 mg/dL Normal 7.0-18.0 [facility] [place] Comment on above: Performed By: #### L IVER, LIPA, BMP, NAT ####[facility] [address] [place], [place] [address]Xv. Keturah Fisher Urea nitrogen/Creatinine [Mass ratio] 11.5 mg/mg Normal [facility] [place] Comment on above: Performed By: #### L IVER, LIPA, BMP, NAT ####[facility] [address] [id number]. Keturah Fisher Albumin [Mass/volume] in Ser um or PlasmaOrdered By: Agustin Llanes on 03-22-2022 Albumin [Mass/Vol] 4.1 g/dL 3.2-5.5 [facility] Automated erythrocytes count in urine sediment (number/area)Ordered By: Agustin Llanes on 03-22-2022 RBC Auto (Urine sed) [#/Area] 3-4 [HPF] 0-4 [facility] Automated leukocytes count i n urine sediment (number/area)Ordered By: Agustin Llanes on 03-22-2022 WBC Auto (Urine sed) [#/Area] 10-19 [HPF] 0-4 [facility] Basophils Auto (Bld) [#/Vol] Ordered By: Agustin Llanes on 03-22-2022 Basophils (Bld) [#/Vol] 0.1 10*3/uL 0.0-0.2 [facility] Basophils/100 WBC Auto (Bld) Ordered By: Agustin Llanes on 03-22-2022 Basophils/100 WBC (Bld) 0.9 % . [facility] Bilirubin Test strip Ql (U)O rdered By: Agustin Llanes on 01-14-2023 Bilirubin Ql (U) Negative Negative [facility] Color Auto (U)Ordered By: Vita Llanes on 03-22-2022 Color (U) Yellow Yellow [facility] Creatinine and Glomerular fi ltration rate.predicted panel (S/P/Bld)Ordered By: Agustin Llanes on 03-22-2022 Creatinine [Mass/Vol] 0.74 mg/dL 0.44-1.03 [facility] Direct bilirubin measurement Ordered By: Agustin Llanes on 03-22-2022 Bilirubin.direct [Mass/Vol] 0.3 mg/dL 0.0-0.4 [facility] Eosinophils Auto (Bld) [#/Vo l]Ordered By: Agustin Llanes on 03-22-2022 Eosinophils (Bld) [#/Vol] 0.1 10*3/uL 0.0-0.45 [facility] Eosinophils/100 WBC Auto (Bl d)Ordered By: Agustin Llanes on 03-22-2022 Eosinophils/100 WBC (Bld) 0.7 % . [facility] Erythrocyte distribution wid th Auto (RBC) [Ratio]Ordered By: Agustin Llanes on 03-22-2022 Erythrocyte distribution width (RBC) [Ratio] 13.9 % 11.9-15.3 [facility] Estimated glomerular filtrat ion rate (GFR) non- AmericanOrdered By: Agustin Llanes on 03-22-2022 GFR/1.73 sq M.predicted among non-blacks MDRD (S/P/Bld) [Vol rate/Area] > 60 mL/Min [facility] Globulin Calc (S) [Mass/Vol] Ordered By: Agustin Llanes on 03-22-2022 Globulin (S) [Mass/Vol] 3.1 g/dL [facility] HCG ( test) IA.rapi d Ql (U)Ordered By: Agustin Llanes on 03-22-2022 HCG ( test) Ql (U) Negative [facility] Hematocrit Auto (Bld) [Volum e fraction]Ordered By: Agustin Llanes on 03-22-2022 Hematocrit (Bld) [Volume fraction] 45.7 % 34.0-46.4 [facility] Hemoglobin [Mass/volume] in BloodOrdered By: Agustin Llanes on 03-22-2022 Hemoglobin (Bld) [Mass/Vol] 15.2 g/dL 11.8-15.4 [facility] Ketones Auto test strip (U) [Mass/Vol]Ordered By: Agustin Llanes on 03-22-2022 Ketones (U) [Mass/Vol] Negative Negative [facility] - Chemistry and C hemistry - challengeOrdered By: Agustin Llanes on 03-22-2022 Lipase [Catalytic activity/Vol] 122.0 U/L 22-51 [facility] - UrinalysisOrder ed By: Agustin Llanes on 03-22-2022 Hyaline casts LM Ql (Urine sed) 0-8 [LPF] 0-8 [facility] Leukocytes [#/volume] correc aurelia for nucleated erythrocytes in Blood by Automated counOrdered By: Agustin Llanes on 03-22-2022 WBC corrected for nucl RBC Auto (Bld) [#/Vol] 12.4 10*3/uL 3.8-11.6 [facility] Lymphocytes Auto (Bld) [#/Vo l]Ordered By: Agustin Llanes on 03-22-2022 Lymphocytes (Bld) [#/Vol] 2.2 10*3/uL 1.00-4.8 [facility] Lymphocytes/100 WBC Auto (Bl d)Ordered By: Agustin Llanes on 03-22-2022 Lymphocytes/100 WBC (Bld) 18.0 % . [facility] MCH Auto (RBC) [Entitic mass ]Ordered By: Agustin Llanes on 03-22-2022 MCH (RBC) [Entitic mass] 32.5 pg 24.7-34.3 [facility] MCHC Auto (RBC) [Mass/Vol]Or dered By: Agustin Llanes on 03-22-2022 MCHC (RBC) [Mass/Vol] 33.2 g/dL 32.0-35.0 [facility] MCV Auto (RBC) [Entitic vol] Ordered By: Agustin Llanes on 03-22-2022 MCV (RBC) [Entitic vol] 98.0 fL 80-100 [facility] Monocyte distribution width [Entitic volume] in Blood by AutomatedOrdered By: Agustin Llanes on 03-22-2022 Monocyte distribution width Auto (Bld) [Entitic vol] 18.78 % 0.00-20.00 [facility] Monocytes Auto (Bld) [#/Vol] Ordered By: Agustin Llanes on 03-22-2022 Monocytes (Bld) [#/Vol] 1.0 10*3/uL 0.0-0.8 [facility] Monocytes/100 WBC Auto (Bld) Ordered By: Agustin Llanes on 03-22-2022 Monocytes/100 WBC (Bld) 8.0 % . [facility] Neutrophils Auto (Bld) [#/Vo l]Ordered By: Agustin Llanes on 03-22-2022 Neutrophils (Bld) [#/Vol] 9.0 10*3/uL 1.8-7.7 [facility] Neutrophils/100 WBC Auto (Bl d)Ordered By: Agustin Llanes on 03-22-2022 Neutrophils/100 WBC (Bld) 72.4 % . [facility] Nitrite Test strip Ql (U)Ord ered By: Agustin Llanes on 03-22-2022 Nitrite Ql (U) Positive Negative [facility] No Panel InformationOrdered By: Agustin Llanes on 03-22-2022 Estimated GFR () > 60 mL/Min [facility] Comment on above: GFR estimated refere nce range: According to KDOQI guidelines, <60 ml/min/1.73m2 is sufficient to diagnose a patient with chronic kidney disease. Pharmacy Creatinine Clearance (Chem 70.34 [facility] Nucleated erythrocytes [Pres ence] in Blood by Automated countOrdered By: Agustin Llanes on 03-22-2022 Nucleated RBC Auto Ql (Bld) 0.0 /100{WBC} 0-0.5 [facility] Platelet mean volume Auto (B ld) [Entitic vol]Ordered By: Agustin Llanes on 03-22-2022 Platelet mean volume (Bld) [Entitic vol] 8.0 fL 6.3-10.7 [facility] Platelets Auto (Bld) [#/Vol] Ordered By: Agustin Llanes on 03-22-2022 Platelets (Bld) [#/Vol] 266 10*3/uL 150-450 [facility] Protein Auto test strip (U) [Mass/Vol]Ordered By: Agustin Llanes on 03-22-2022 Protein (U) [Mass/Vol] Negative Negative [facility] Protein [Mass/volume] in Ser um or PlasmaOrdered By: Agustin Llanes on 03-22-2022 Protein [Mass/Vol] 7.2 g/dL 6.1-7.9 [facility] RBC Auto (Bld) [#/Vol]Ordere d By: Agustin Llanes on 03-22-2022 RBC (Bld) [#/Vol] 4.67 10*6/uL 3.60-5.00 [facility] Serum or plasma alanine hughes otransferase measurement without P-5'-P (enzymatic activiOrdered By: Agustin Llanes on 03-22-2022 ALT No additional P-5'-P [Catalytic activity/Vol] 19 U/L 10-60 [facility] Serum or plasma albumin/glob ulin mass ratioOrdered By: Agustin Llanes on 03-22-2022 Albumin/Globulin [Mass ratio] 1.3 {ratio} [facility] Serum or plasma alkaline jaqueline sphatase measurement (enzymatic activity/volume)Ordered By: Agustin Llanes on 03-22-2022 ALP [Catalytic activity/Vol] 156 U/L 32-92 [facility] Serum or plasma anion gap de terminationOrdered By: Agustin Llanes on 03-22-2022 Anion gap [Moles/Vol] 12.6 mmol/L 6.0-15.0 [facility] Serum or plasma aspartate am inotransferase measurement (enzymatic activity/volume)Ordered By: Agustin Llanes on 03-22-2022 AST [Catalytic activity/Vol] 29 U/L 10-42 [facility] Serum or plasma calcium priscilla urement (mass/volume)Ordered By: Agustin Llanes on 03-22-2022 Calcium [Mass/Vol] 9.9 mg/dL 8.2-10.2 [facility] Serum or plasma chloride daron surement (moles/volume)Ordered By: Agustin Llanes on 03-22-2022 Chloride [Moles/Vol] 103 mmol/L 95-114 [facility] Serum or plasma glucose priscilla urement (mass/volume)Ordered By: Agustin Llanes on 03-22-2022 Glucose [Mass/Vol] 106 mg/dL 70-100 [facility] Comment on above: ADA recommended refe rence rangeRandom Glucose Reference Range is dependent on time and content of last meal. Glucose of more than 200 mg/dL in a nonstressed, ambulatory subject supports the diagnosis of Diabetes Mellitus. Serum or plasma non-glucuron idated bilirubin measurement (mass/volume)Ordered By: Agustin Llanes on 03-22-2022 Bilirubin.indirect [Mass/Vol] 0.2 mg/dL [facility] Serum or plasma potassium me asurement (moles/volume)Ordered By: Agustin Llanes on 03-22-2022 Potassium [Moles/Vol] 4.5 mmol/L 3.5-5.1 [facility] Serum or plasma sodium measu rement (moles/volume)Ordered By: Agustin Llanes on 03-22-2022 Sodium [Moles/Vol] 138 mmol/L 136-146 [facility] Serum or plasma total biliru bin measurement (mass/volume)Ordered By: Agustin Llanes on 03-22-2022 Bilirubin [Mass/Vol] 0.5 mg/dL 0.3-1.2 [facility] Serum or plasma total carbon dioxide measurement (moles/volume)Ordered By: Agustin Llanes on 03-22-2022 CO2 [Moles/Vol] 26.9 mmol/L 22.0-30.0 [facility] Serum or plasma urea nitroge n measurement (mass/volume)Ordered By: Agustin Llanes on 03-22-2022 Urea nitrogen [Mass/Vol] 8 mg/dL 9-23 [facility] Specific gravity Auto test s trip (U) [Rel density]Ordered By: Agustin Llanes on 03-22-2022 Specific gravity (U) [Rel density] 1.011 1.001-1.030 [facility] Squamous epithelial cells de tection in urine sediment by light microscopyOrdered By: Agustin Llanes on 03-22-2022 Epithelial cells.squamous LM Ql (Urine sed) 1-2 [HPF] 0-2 [facility] Urine bacteria detection by automated methodOrdered By: Agustin Llanes on 03-22-2022 Bacteria Auto Ql (U) 1+ None Seen [facility] Urine clarity by refractomet ry automatedOrdered By: Agustin Llanes on 03-22-2022 Clarity Refractometry automated (U) Clear Clear [facility] Urine glucose measurement by automated test strip (mass/volume)Ordered By: Agustin Llanes on 03-22-2022 Glucose Auto test strip (U) [Mass/Vol] Normal mg/dL Normal [facility] Urine hemoglobin detection b y automated test stripOrdered By: Agustin Llanes on 03-22-2022 Hemoglobin Auto test strip Ql (U) Negative Negative [facility] Urine leukocyte esterase det ection by automated test stripOrdered By: Agustin Llanes on 03-22-2022 Leukocyte esterase Auto test strip Ql (U) 2+ Negative [facility] Urobilinogen Auto test strip (U) [Mass/Vol]Ordered By: Agustin Llanes on 03-22-2022 Urobilinogen (U) [Mass/Vol] Normal mg/dL Normal [facility] WBC Auto (Bld) [#/Vol]Ordere d By: Agustin Llanes on 03-22-2022 WBC (Bld) [#/Vol] 12.4 10*3/uL 3.8-11.6 [facility] pH Auto test strip (U)Ordere d By: Agustin Llanes on 03-22-2022 pH (U) 5.5 [pH] 5.0-9.0 [facility] AMYLASEon 03-19-2022 Amylase [Catalytic activity/Vol] 297 U/L Critically high 25-115 [facility] Comment on above: Performed By: #### L IPA, CMP, CRP, NAT #### [facility] [address] [address] [address] Keturah Fisher CBC AUTO DIFFon 03-19-2022 BASO # 0.1 103/ul Normal 0.0-0.1 [facility] Comment on above: Performed By: #### L IPA, CMP, CRP, NAT #### [facility] [address] [address] [address] Keturah Fisher Basophils/100 WBC (Bld) 0.6 % Normal 0.2-2.0 [facility] Comment on above: Performed By: #### L IPA, CMP, CRP, NAT #### [facility] [address] [address] [address] Keturah Fisher EO # 0.1 103/ul Normal 0.0-0.7 [facility] Comment on above: Performed By: #### L IPA, CMP, CRP, NAT #### [facility] [address] [place] [address] Dr. Keturah Fisher Eosinophils/100 WBC (Bld) 0.5 % Critically low 0.9-7.0 [facility] Comment on above: Performed By: #### L IPA, CMP, CRP, NAT #### [facility] [address] [place] [address] Dr. Keturah Fisher Erythrocyte distribution width (RBC) [Ratio] 13.4 % Normal 11.0-15.0 [facility] Comment on above: Performed By: #### L IPA, CMP, CRP, NAT #### [facility] [address] [place] [address] Dr. Keturah Fisher Hemoglobin (Bld) [Mass/Vol] 15.7 g/dL Normal 12.0-16.0 [facility] Comment on above: Performed By: #### L IPA, CMP, CRP, NAT #### [facility] [address] [place] [address] Dr. Keturah Fisher IG # 0.06 10e3/ul Critically high 0.00-0.03 [facility] Comment on above: Performed By: #### L IPA, CMP, CRP, NAT #### [facility] [address] [place] [address] Dr. Keturah Fisher IG % 0.4 % Normal 0.0-0.5 [facility] Comment on above: Performed By: #### L IPA, CMP, CRP, NAT #### [facility] [address] [place] [address] Dr. Keturah Fisher LYMPH # 2.6 103/ul Normal 1.2-3.8 [facility] Comment on above: Performed By: #### L IPA, CMP, CRP, NAT #### [facility] [address] [place] [address] Dr. Keturah Fisher Lymphocytes/100 WBC (Bld) 18.1 % Critically low 20.5-60.0 [facility] Comment on above: Performed By: #### L IPA, CMP, CRP, NAT #### [facility] [address] [place] [address] Dr. Keturah Fisher MANUAL DIFF REQ NO Normal [facility] Comment on above: Performed By: #### L IPA, CMP, CRP, NAT #### [facility] [address] [place] [address] Dr. Keturah Fisher MCH (RBC) [Entitic mass] 32.4 pg Normal 26.7-34.0 [facility] Comment on above: Performed By: #### L IPA, CMP, CRP, NAT #### [facility] [address] [place] [address] Dr. Keturah Fisher MCHC (RBC) [Mass/Vol] 32.5 g/dL Normal 29.9-35.2 [facility] Comment on above: Performed By: #### L IPA, CMP, CRP, NAT #### [facility] [address] [place] [address] Dr. Keturah Fisher MCV (RBC) [Entitic vol] 99.8 fL Critically high 81.0-99.0 [facility] Comment on above: Performed By: #### L IPA, CMP, CRP, NAT #### [facility] [address] [place] [address] Dr. Keturah Fisher MONO # 0.9 103/ul Critically high 0.3-0.[address] [facility] Comment on above: Performed By: #### L IPA, CMP, CRP, NAT #### [facility] [address] [place] [address] Dr. Keturah Fisher Monocytes/100 WBC (Bld) 5.9 % Normal 1.7-12.0 [facility] Comment on above: Performed By: #### L IPA, CMP, CRP, NAT #### [facility] [address] [place] [address] Dr. Keturah Fisher NEUT # 10.8 103/ul Critically high 1.4-6.5 [facility] Comment on above: Performed By: #### L IPA, CMP, CRP, NAT #### [facility] [address] [place] [address] Dr. Keturah Fisher Neutrophils/100 WBC (Bld) 74.5 % Normal 43.0-75.0 [facility] Comment on above: Performed By: #### L IPA, CMP, CRP, NAT #### [facility] [address] [place] [address] Dr. Keturah Fisher Platelet mean volume (Bld) [Entitic vol] 9.7 fL Normal 9.5-13.5 [facility] Comment on above: Performed By: #### L IPA, CMP, CRP, NAT #### [facility] [address] [place] [address] Dr. Keturah Fisher PLT 279 103/ul Normal 150-450 [facility] Comment on above: Performed By: #### L IPA, CMP, CRP, NAT #### [facility] [address] [place] [address] Dr. Keturah Fisher RBC 4.84 106/ul Normal 4.20-5.40 [facility] Comment on above: Performed By: #### L IPA, CMP, CRP, NAT #### [facility] [address] [place] [address] Dr. Keturah Fisher WBC 14.5 103/ul Critically high 4.0-11.0 [facility] Comment on above: Performed By: #### L IPA, CMP, CRP, NAT #### [facility] [address] [place] [address] ABD/PELVIS WO CONon [...] by: AGUSTIN HIGHTOWER Date: 2022-03-19 19:10 Normal [facility] LIPASEon 03-19-2022 Lipase [Catalytic activity/Vol] 1573.0 U/L Critically high 73.0-393.0 [facility] Comment on above: Performed By: #### L IPA, CMP, CRP, NAT #### [facility] [address] [place] [address] Dr. Keturah Fisher PROF 14(COMP METB)on 023 Albumin [Mass/Vol] 4.3 g/dL Normal 3.4-5.0 [facility] Comment on above: Performed By: #### L IPA, CMP, CRP, NAT #### [facility] [address] [address] [address] Keturah Fisher Albumin/Globulin [Mass ratio] 1.1 {ratio} Normal [facility] Comment on above: Performed By: #### L IPA, CMP, CRP, NAT #### [facility] [address] [address] [address] Keturah Fisher ALP [Catalytic activity/Vol] 222 U/L Critically high 46-116 [facility] Comment on above: Performed By: #### L IPA, CMP, CRP, NAT #### [facility] [address] [address] [address] Keturah Fisher ALT [Catalytic activity/Vol] 18 U/L Normal 14-59 [facility] Comment on above: Performed By: #### L IPA, CMP, CRP, NAT #### [facility] [address] [address] [address] Keturah Fisher Anion gap [Moles/Vol] 10.7 mmol/L Normal [facility] Comment on above: Performed By: #### L IPA, CMP, CRP, NAT #### [facility] [address] [place] [address] Dr. Keturah Fisher AST [Catalytic activity/Vol] 19 U/L Normal 15-37 [facility] Comment on above: Performed By: #### L IPA, CMP, CRP, NAT #### [facility] [address] [address] [address] Keturah Fisher Bilirubin [Mass/Vol] 0.2 mg/dL Normal 0.2-1.0 [facility] Comment on above: Performed By: #### L IPA, CMP, CRP, NAT #### [facility] [address] [address] [address] Keturah Fisher Calcium [Mass/Vol] 10.2 mg/dL Critically high 8.5-10.1 [facility] Comment on above: Performed By: #### L IPA, CMP, CRP, NAT #### [facility] [address] [address] [address] Keturah Fisher Chloride [Moles/Vol] 101 mmol/L Normal 98-107 [facility] Comment on above: Performed By: #### L IPA, CMP, CRP, NAT #### [facility] [address] [address] [address] Keturah Fisher CO2 [Moles/Vol] 29.1 mmol/L Normal 21.0-32.0 [facility] Comment on above: Performed By: #### L IPA, CMP, CRP, NAT #### [facility] [address] [address] [address] Keturah Fisher Creatinine [Mass/Vol] 0.73 mg/dL Normal 0.55-1.02 [facility] Comment on above: Performed By: #### L IPA, CMP, CRP, NAT #### [facility] [address] [address] [address] Keturah Fisher EGFR-AF CITIZEN OF [place] >60 Normal >=60 [facility] Comment on above: Performed By: #### L IPA, CMP, CRP, NAT #### [facility] [address] [place] [address] Dr. Keturah Fisher EGFR-NON AF CITIZEN OF [place] >60 Normal >=60 [facility] Comment on above: Performed By: #### L IPA, CMP, CRP, NAT #### [facility] [address] [place] [address] Dr. Keturah Fisher Globulin (S) [Mass/Vol] 4.0 g/dL Normal [facility] Comment on above: Performed By: #### L IPA, CMP, CRP, NAT #### [facility] [address] [place] [address] Dr. Keturah Fisher Glucose [Mass/Vol] 92 mg/dL Normal 74-106 [facility] Comment on above: Performed By: #### L IPA, CMP, CRP, NAT #### [facility] [address] [place] [address] Dr. Keturah Fisher Potassium [Moles/Vol] 3.8 mmol/L Normal 3.5-5.1 [facility] Comment on above: Performed By: #### L IPA, CMP, CRP, NAT #### [facility] [address] [place] [address] Dr. Keturah Fisher Protein [Mass/Vol] 8.3 g/dL Critically high 6.4-8.2 [facility] Comment on above: Performed By: #### L IPA, CMP, CRP, NAT #### [facility] [address] [place], [place] [id number] Dr. Keturah Fisher Sodium [Moles/Vol] 137 mmol/L Normal 136-145 [facility] Comment on above: Performed By: #### L IPA, CMP, CRP, NAT #### [facility] [address] [address] [address] Keturah Fisher Urea nitrogen [Mass/Vol] 10.0 mg/dL Normal 7.0-18.0 [facility] Comment on above: Performed By: #### L IPA, CMP, CRP, NAT #### [facility] [address] [address] [address] Keturah Fisher Urea nitrogen/Creatinine [Mass ratio] 13.7 mg/mg Normal [facility] Comment on above: Performed By: #### L IPA, CMP, CRP, NAT #### [facility] [address] [address] [address] Keturah Fisher PROTIMEon 03-19-2022 INR Coag (PPP) [Relative time] {INR} Normal [facility] Comment on above: Performed By: #### P TT, PT ####[facility] [id number] [place], [place] [address]Dr. Keturah Fisher INR GUIDELINES SEE BELOW Normal [facility] Comment on above: Result Comment: KARLY RED INR: 2.0 - 3.0 CONDITIONS NOT LISTED BELOW 2.5 - 3.5 FOR PROSTHETIC HEART VALVE REPLACEMENT 2.5 - 3.5 RECURRENT THROMBOSIS Performed By: #### P TT, PT ####[facility] [address] [place], [place] [address]Dr. Keturah Fisher PT Coag (PPP) [Time] 9.4 s Normal 9.0-11.6 [facility] Comment on above: Performed By: #### P TT, PT ####[facility] [id number] [place], [place] [address]Dr. Keturah Fisher PTTon 03-19-2022 aPTT Coag (Bld) [Time] 26.1 s Normal 22.3-36.2 [facility] Comment on above: Performed By: #### P TT, PT ####[facility] [address] [place], [place] [address]ZkDr. Keturah Fisher TROPONIN, HIGH SENSITIVITYon 03-19-2022 HSTROP 4.0 pg/mL Normal 4.0-51.3 [facility] Comment on above: Result Comment: CUT- OFF POINTS HAVE BEEN ESTABLISHED BASED ON THE FOURTH UNIVERSAL DEFINITIONS OF MYOCARDIAL INFARCTION. THE UPPER REFERENCE LIMIT (URL) OF TROPONIN, DEFINED THE 99TH PERCENTILE OF cTnI DISTRIBUTION IN A REFERENCE POPULATION, HAS BEEN CONFIRMED THE DECISION THRESHOLD FOR [place] DIAGNOSIS. Performed By: #### L IPA, CMP, CRP, NAT #### [facility] [address] [place], [place] [address] Dr. 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 Mental [...] si (more content not included)... LAB, [facility] Radiology Study observation (narrative) [facility] BONE DENSITY AXIAL (HIP, PEL VIS, SPINE)on 01-27-2022 BONE DENSITY AXIAL (HIP, PELVIS, SPINE) EXAM: BONE DENSITY AXIAL (HIP, PELVIS, SPINE) 01/27/2022 15:34 PM TECHNIQUE: DXA scanning using a [employer] Advance bone densitometer at the [facility] was performed on 01/27/2022 15:34 PM [...] interpreted this study is a Certified Clinical Breakfast Hostess by the International Society of Clinical Densitometry Maulik Reed M.D., [facility]. [facility] IMPRESSION: Based on BMD and WHO criteria [...] interpreted this study is a Certified Clinical Breakfast Hostess by the International Society of Clinical Densitometry Maulik Reed M.D., CCD. OLOGY EXAM: BONE DENSITY AXIAL (HIP, PELVIS, SPINE) 01/27/2022 15:34 PM TECHNIQUE: DXA scanning using a [employer] Advance bone densitometer at the [facility] was performed on 01/27/2022 15:34 PM [...] 15:34 PM TECHNIQUE: DXA scanning using a [employer] Advance bone densitometer at the [facility] was performed on 01/27/2022 15:34 PM [...] interpreted this study is a Certified Clinical Breakfast Hostess by the International Society of Clinical Densitometry Maulik Reed M.D., [facility]. [facility] Radiology Study observation (narrative) [facility] BONE DENSITY AXIAL (HIP, PEL VIS, SPINE)Ordered By: Maulik Reed on 01-27-2022 [facility] Work Phone: CBC AUTO DIFFon 01-15-2022 BASO # 0.1 103/ul Normal 0.0-0.1 [facility] Comment on above: Performed By: #### C BC ####[facility] [address] [address]Dr. Keturah Fisher Basophils/100 WBC (Bld) 0.9 % Normal 0.2-2.0 [facility] Comment on above: Performed By: #### C BC ####[facility] [address] [place], [place] [address]Dr. Keturah Fisher EO # 0.2 103/ul Normal 0.0-0.7 [facility] Comment on above: Performed By: #### C BC ####[facility] [address] [place], [place] [address]Dr. Keturah Fisher Eosinophils/100 WBC (Bld) 2.8 % Normal 0.9-7.0 [facility] Comment on above: Performed By: #### C BC ####[facility] [address] [address]Dr. Keturah Fisher Erythrocyte distribution width (RBC) [Ratio] 12.9 % Normal 11.0-15.0 [facility] Comment on above: Performed By: #### C BC ####[facility] [address] [place], [place] [address]Dr. Keturah Fisher Hematocrit (Bld) [Volume fraction] 41.7 % Normal 36.0-48.0 [facility] Comment on above: Performed By: #### C BC ####[facility] [address] [id number]. Keturah Fisher Hemoglobin (Bld) [Mass/Vol] 14.0 g/dL Normal 12.0-16.0 [facility] Comment on above: Performed By: #### C BC ####[facility] [address] [id number]. Keturah Fisher IG # 0.01 10e3/ul Normal 0.00-0.03 [facility] Comment on above: Performed By: #### C BC ####[facility] [address] [id number]. Keturah Fisher IG % 0.1 % Normal 0.0-0.5 [facility] Comment on above: Performed By: #### C BC ####[facility] [address] [place] [address]Dr. Keturah Fisher LYMPH # 2.4 103/ul Normal 1.2-3.8 [facility] Comment on above: Performed By: #### C BC ####[facility] [address] [id number]. Keturah Fisher Lymphocytes/100 WBC (Bld) 32.0 % Normal 20.5-60.0 The [facility] Comment on above: Performed By: #### C BC ####[facility] [address] [id number]. Keturah Fisher MANUAL DIFF REQ NO Normal The [facility] Comment on above: Performed By: #### C BC ####[facility] [address] [id number]. Keturah Fisher MCH (RBC) [Entitic mass] 32.6 pg Normal 26.7-34.0 The [facility] Comment on above: Performed By: #### C BC ####[facility] [address] [id number]. Keturah Fisher MCHC (RBC) [Mass/Vol] 33.6 g/dL Normal 29.9-35.2 [facility] Comment on above: Performed By: #### C BC ####[facility] [address] [id number]. Keturah Phillip MCV (RBC) [Entitic vol] 97.0 fL Normal 81.0-99.0 The [facility] Comment on above: Performed By: #### C BC ####[facility] [address] [address]Dr. Keturah Fisher MONO # 0.7 103/ul Normal 0.3-0.8 The [facility] Comment on above: Performed By: #### C BC ####[facility] [address] [place], [place] [address]Dr. Elisaeli Fisher Monocytes/100 WBC (Bld) 9.5 % Normal 1.7-12.0 The [facility] Comment on above: Performed By: #### C BC ####[facility] [address] [place], [place] [address]Dr. Keturah Phillip NEUT # 4.1 103/ul Normal 1.4-6.5 The [facility] Comment on above: Performed By: #### C BC ####[facility] [address] [place], [place] [address]Dr. Elisaeli Fisher Neutrophils/100 WBC (Bld) 54.7 % Normal 43.0-75.0 The [facility] Comment on above: Performed By: #### C BC ####[facility] [address] [place], [place] [address]Dr. Elisaeli Fisher Platelet mean volume (Bld) [Entitic vol] 9.6 fL Normal 9.5-13.5 The [facility] Comment on above: Performed By: #### C BC ####[facility] [address] [place], [place] [address]Dr. Elisaeli Fisher PLT 235 103/ul Normal 150-450 The [facility] Comment on above: Performed By: #### C BC ####[facility] [address] [place], [place] [address]Dr. Keturah Fisher RBC 4.30 106/ul Normal 4.20-5.40 The [facility] Comment on above: Performed By: #### C BC ####[facility] [address] [place], [place] [address]Dr. Keturah Fisher WBC 7.6 103/ul Normal 4.0-11.0 [facility] Comment on above: Performed By: #### C BC ####[facility] [address] [address]Dr. Keturah Fisher ER URINE PROFILEon 2 Bilirubin Ql (U) Negative Normal NEGATIVE [facility] Comment on above: Performed By: #### L IPA, CMP, CRP, NAT #### [facility] [address] [address] [address] Keturah Fisher Clarity (U) CLEAR Normal CLEAR [facility] Comment on above: Performed By: #### L IPA, CMP, CRP, NAT #### [facility] [address] [address] [address] Keturah Fisher Color (U) YELLOW Normal YELLOW [facility] Comment on above: Performed By: #### L IPA, CMP, CRP, NAT #### [facility] [address] [place] [address] Dr. Keturah BAH A micrscopic examination will be performed if indicated. Normal [facility] Comment on above: Performed By: #### L IPA, CMP, CRP, NAT #### [facility] [address] [place] [address] Dr. Keturah Fisher Glucose Ql (U) Negative Normal NEGATIVE [facility] Comment on above: Performed By: #### L IPA, CMP, CRP, NAT #### [facility] [address] [address] [address] Keturah Fisher Hemoglobin Ql (U) Negative Normal NEGATIVE [facility] Comment on above: Performed By: #### L IPA, CMP, CRP, NAT #### [facility] [address] [address] [address] Keturah Fisher Ketones Ql (U) Negative Normal NEGATIVE [facility] Comment on above: Performed By: #### L IPA, CMP, CRP, NAT #### [facility] [address] [address] [address] Keturah Fisher LEUKOCYTES Negative Normal NEGATIVE [facility] Comment on above: Performed By: #### L IPA, CMP, CRP, NAT #### [facility] [address] [place] [address] Dr. Keturah Fisher Nitrite Ql (U) Negative Normal NEGATIVE [facility] Comment on above: Performed By: #### L IPA, CMP, CRP, NAT #### [facility] [address] [address] [address] Keturah Fisher pH (U) 5.5 [pH] Normal 5-9 [facility] Comment on above: Performed By: #### L IPA, CMP, CRP, NAT #### [facility] [address] [place] [address] Dr. Keturah Fisher SPEC GRAVITY >=1.030 Abnormal 1.005-<=1.0 25 [facility] Comment on above: Performed By: #### L IPA, CMP, CRP, NAT #### [facility] [address] [place] [address] Dr. Keturah Fisher UA PROTEIN Negative Normal NEGATIVE/ TRACE [facility] Comment on above: Performed By: #### L IPA, CMP, CRP, NAT #### [facility] [address] [place] [address] Dr. Keturah Fisher UR MICRO IND NOT INDICATED Normal [facility] Comment on above: Performed By: #### L IPA, CMP, CRP, NAT #### [facility] [address] [place] [address] Dr. Keturah Fisher Urobilinogen Qn (U) 0.2 {Marizol'U}/dL Normal 0.2 - 1. 0 [facility] Comment on above: Performed By: #### L IPA, CMP, CRP, NAT #### [facility] [address] [place] [address] Dr. Keturah Fisher LIPASEon 01-15-2022 Lipase [Catalytic activity/Vol] 572.0 U/L Critically high 73.0-393.0 [facility] Comment on above: Performed By: #### C BC #### [facility] [address] [place] [address] Dr. Keturah Fisher URon 01-15-2022 , QUAL Negative Normal NEGATIVE [facility] Comment on above: Performed By: #### L IPA, CMP, CRP, NAT #### [facility] [address] [address] [address] Keturah Fisher PROF 14(COMP METB)on 022 Albumin [Mass/Vol] 3.8 g/dL Normal 3.4-5.0 The [facility] Comment on above: Performed By: #### C BC #### [facility] [address] [address] [address] Keturah Fisher Albumin/Globulin [Mass ratio] 1.1 {ratio} Normal [facility] Comment on above: Performed By: #### C BC #### [facility] [address] [place] [address] Dr. Keturah Fisher ALP [Catalytic activity/Vol] 151 U/L Critically high 46-116 [facility] Comment on above: Performed By: #### C BC #### [facility] [address] [address] [address] Keturah Fisher ALT [Catalytic activity/Vol] 14 U/L Normal 14-59 [facility] Comment on above: Performed By: #### C BC #### [facility] [address] [place] [address] Dr. Keturah Fisher Anion gap [Moles/Vol] 5.5 mmol/L Normal [facility] Comment on above: Performed By: #### C BC #### [facility] [address] [place] [address] Dr. Keturah Fisher AST [Catalytic activity/Vol] 16 U/L Normal 15-37 [facility] Comment on above: Performed By: #### C BC #### [facility] [id number] Keturah Fisher Bilirubin [Mass/Vol] 0.1 mg/dL Critically low 0.2-1.0 [facility] Comment on above: Performed By: #### C BC #### [facility] [address] [place] [address] Dr. Keturah Fisher Calcium [Mass/Vol] 9.5 mg/dL Normal 8.5-10.1 [facility] Comment on above: Performed By: #### C BC #### [facility] [address] [place] [address] Dr. Keturah Fisher Chloride [Moles/Vol] 105 mmol/L Normal 98-107 [facility] Comment on above: Performed By: #### C BC #### [facility] [address] [address] [address] Keturah Fisher CO2 [Moles/Vol] 30.0 mmol/L Normal 21.0-32.0 [facility] Comment on above: Performed By: #### C BC #### [facility] [address] [place] [address] Dr. Keturah Fisher Creatinine [Mass/Vol] 0.90 mg/dL Normal 0.55-1.02 [facility] Comment on above: Performed By: #### C BC #### [facility] [address] [place] [address] Dr. Keturha Fisher EGFR-AF CITIZEN OF [place] >60 Normal >=60 [facility] Comment on above: Performed By: #### C BC #### [facility] [address] [place] [address] Dr. Keturah Fisher EGFR-NON AF CITIZEN OF [place] >60 Normal >=60 [facility] Comment on above: Performed By: #### C BC #### [facility] [address] [place] [address] Dr. Keturah Fisher Globulin (S) [Mass/Vol] 3.4 g/dL Normal [facility] Comment on above: Performed By: #### C BC #### [facility] [address] [place] [address] Dr. Keturah Fisher Glucose [Mass/Vol] 82 mg/dL Normal 74-106 [facility] Comment on above: Performed By: #### C BC #### [facility] [address] [place] [address] Dr. Keturah Fisher Potassium [Moles/Vol] 3.5 mmol/L Normal 3.5-5.1 [facility] Comment on above: Performed By: #### C BC #### [facility] [address] [address] [address] Keturah Fisher Protein [Mass/Vol] 7.2 g/dL Normal 6.4-8.2 [facility] Comment on above: Performed By: #### C BC #### [facility] [address] [place] [address] Dr. Keturah Fisher Sodium [Moles/Vol] 137 mmol/L Normal 136-145 [facility] Comment on above: Performed By: #### C BC #### [facility] [address] [place] [address] Dr. Keturah Fisher Urea nitrogen [Mass/Vol] 12.0 mg/dL Normal 7.0-18.0 [facility] Comment on above: Performed By: #### C BC #### [facility] [address] [place] [address] Dr. Keturah Fisher Urea nitrogen/Creatinine [Mass ratio] 13.3 mg/mg Normal [facility] Comment on above: Performed By: #### C BC #### [facility] [address] [place] [address] Dr. Keturah Fisher AMYLASEon 12-13-2021 Amylase [Catalytic activity/Vol] 268 U/L Critically high 25-115 [facility] Comment on above: Performed By: #### L IPA, CMP, CRP, NAT #### [facility] [address] [place] [address] Dr. Keturah Fisher CBC AUTO DIFFon 12-13-2021 BASO # 0.1 103/ul Normal 0.0-0.1 [facility] Comment on above: Performed By: #### L IPA, CMP, CRP, NAT #### [facility] [address] [place] [address] Dr. Keturah Fisher Basophils/100 WBC (Bld) 0.6 % Normal 0.2-2.0 [facility] Comment on above: Performed By: #### L IPA, CMP, CRP, NAT #### [facility] [address] [place] [address] Dr. Keturah Fisher EO # 0.1 103/ul Normal 0.0-0.7 [facility] Comment on above: Performed By: #### L IPA, CMP, CRP, NAT #### [facility] [address] [place] [address] Dr. Keturah Fisher Eosinophils/100 WBC (Bld) 1.2 % Normal 0.9-7.0 [facility] Comment on above: Performed By: #### L IPA, CMP, CRP, NAT #### [facility] [address] [place] [address] Dr. Keturah Fisher Erythrocyte distribution width (RBC) [Ratio] 13.2 % Normal 11.0-15.0 [facility] Comment on above: Performed By: #### L IPA, CMP, CRP, NAT #### [facility] [address] [place] [address] Dr. Keturah Fisher Hematocrit (Bld) [Volume fraction] 44.7 % Normal 36.0-48.0 [facility] Comment on above: Performed By: #### L IPA, CMP, CRP, NAT #### [facility] [address] [place] [address] Dr. Keturah Fisher Hemoglobin (Bld) [Mass/Vol] 14.7 g/dL Normal 12.0-16.0 [facility] Comment on above: Performed By: #### L IPA, CMP, CRP, NAT #### [facility] [address] [place] [address] Dr. Keturah Fisher IG # 0.03 10e3/ul Normal 0.00-0.03 [facility] Comment on above: Performed By: #### L IPA, CMP, CRP, NAT #### [facility] [address] [place] [address] Dr. Keturah Fisher IG % 0.3 % Normal 0.0-0.5 [facility] Comment on above: Performed By: #### L IPA, CMP, CRP, NAT #### [facility] [address] [place] [address] Dr. Keturah Fisher LYMPH # 3.6 103/ul Normal 1.2-3.8 [facility] Comment on above: Performed By: #### L IPA, CMP, CRP, NAT #### [facility] [address] [place] [address] Dr. Keturah Fisher Lymphocytes/100 WBC (Bld) 32.7 % Normal 20.5-60.0 [facility] Comment on above: Performed By: #### L IPA, CMP, CRP, NAT #### [facility] [address] [address] [address] Keturah Fisher MANUAL DIFF REQ NO Normal [facility] Comment on above: Performed By: #### L IPA, CMP, CRP, NAT #### [facility] [address] [place] [address] Dr. Keturah Fisher MCH (RBC) [Entitic mass] 32.2 pg Normal 26.7-34.0 [facility] Comment on above: Performed By: #### L IPA, CMP, CRP, NAT #### [facility] [address] [place] [address] Dr. Keturah Fisher MCHC (RBC) [Mass/Vol] 32.9 g/dL Normal 29.9-35.2 [facility] Comment on above: Performed By: #### L IPA, CMP, CRP, NAT #### [facility] [address] [place] [address] Dr. Keturah Fisher MCV (RBC) [Entitic vol] 98.0 fL Normal 81.0-99.0 [facility] Comment on above: Performed By: #### L IPA, CMP, CRP, NAT #### [facility] [address] [place] [address] Dr. Keturah Fisher MONO # 1.1 103/ul Critically high 0.3-0.8 [facility] Comment on above: Performed By: #### L IPA, CMP, CRP, NAT #### [facility] [address] [place] [address] Dr. Keturah Fisher Monocytes/100 WBC (Bld) 9.7 % Normal 1.7-12.0 [facility] Comment on above: Performed By: #### L IPA, CMP, CRP, NAT #### [facility] [address] [place] [address] Dr. Keturah Fisher NEUT # 6.1 103/ul Normal 1.4-6.5 [facility] Comment on above: Performed By: #### L IPA, CMP, CRP, NAT #### [facility] [address] [place] [address] Dr. Keturah Fisher Neutrophils/100 WBC (Bld) 55.5 % Normal 43.0-75.0 [facility] Comment on above: Performed By: #### L IPA, CMP, CRP, NAT #### [facility] [address] [address] [address] Keturah Fisher Platelet mean volume (Bld) [Entitic vol] 9.7 fL Normal 9.5-13.5 [facility] Comment on above: Performed By: #### L IPA, CMP, CRP, NAT #### [facility] [address] [place] [address] Dr. Keturah Fisher PLT 274 103/ul Normal 150-450 [facility] Comment on above: Performed By: #### L IPA, CMP, CRP, NAT #### [facility] [address] [place] [address] Dr. Keturah Fisher RBC 4.56 106/ul Normal 4.20-5.40 [facility] Comment on above: Performed By: #### L IPA, CMP, CRP, NAT #### [facility] [address] [place] [address] Dr. Keturah Fisher WBC 10.9 103/ul Normal 4.0-11.0 [facility] Comment on above: Performed By: #### L IPA, CMP, CRP, NAT #### [facility] [address] [place] [address] Dr. Keturah Fisher CRPon 12-13-2021 CRP [Mass/Vol] mg/L Normal <=1.0 [facility] Comment on above: Performed By: #### L IPA, CMP, CRP, NAT #### [facility] [address] [place] [address] ABD/PELV W CONon [...] by: AGUSTIN HIGHTOWER Date: 2021-12-13 20:50 Normal [facility] LIPASEon 12-13-2021 Lipase [Catalytic activity/Vol] 1496.0 U/L Critically high 73.0-393.0 [facility] Comment on above: Performed By: #### L IPA, CMP, CRP, NAT #### [facility] [address] [address] [address] Keturah Fisher PROF 14(COMP METB)on 022 Albumin [Mass/Vol] 4.0 g/dL Normal 3.4-5.0 [facility] Comment on above: Performed By: #### L IPA, CMP, CRP, NAT #### [facility] [address] [place] [address] Dr. Keturah Fisher Albumin/Globulin [Mass ratio] 1.0 {ratio} Normal [facility] Comment on above: Performed By: #### L IPA, CMP, CRP, NAT #### [facility] [address] [place] [address] Dr. Keturah Fisher ALP [Catalytic activity/Vol] 166 U/L Critically high 46-116 [facility] Comment on above: Performed By: #### L IPA, CMP, CRP, NAT #### [facility] [address] [place] [address] Dr. Keturah Fisher ALT [Catalytic activity/Vol] 19 U/L Normal 14-59 [facility] Comment on above: Performed By: #### L IPA, CMP, CRP, NAT #### [facility] [address] [place] [address] Dr. Keturah Fisher Anion gap [Moles/Vol] 9.5 mmol/L Normal [facility] Comment on above: Performed By: #### L IPA, CMP, CRP, NAT #### [facility] [address] [place] [address] Dr. Keturah Fisher AST [Catalytic activity/Vol] 16 U/L Normal 15-37 [facility] Comment on above: Performed By: #### L IPA, CMP, CRP, NAT #### [facility] [address] [place] [address] Dr. Keturah Fisher Bilirubin [Mass/Vol] 0.1 mg/dL Critically low 0.2-1.0 [facility] Comment on above: Performed By: #### L IPA, CMP, CRP, NAT #### [facility] [address] [place] [address] Dr. Keturah Fisher Calcium [Mass/Vol] 9.6 mg/dL Normal 8.5-10.1 [facility] Comment on above: Performed By: #### L IPA, CMP, CRP, NAT #### [facility] [address] [place] [address] Dr. Keturah Fisher Chloride [Moles/Vol] 104 mmol/L Normal 98-107 [facility] Comment on above: Performed By: #### L IPA, CMP, CRP, NAT #### [facility] [address] [address] [address] Keturah Fisher CO2 [Moles/Vol] 29.7 mmol/L Normal 21.0-32.0 [facility] Comment on above: Performed By: #### L IPA, CMP, CRP, NAT #### [facility] [address] [place] [address] Dr. Keturah Fisher Creatinine [Mass/Vol] 0.85 mg/dL Normal 0.55-1.02 [facility] Comment on above: Performed By: #### L IPA, CMP, CRP, NAT #### [facility] [address] [place] [address] Dr. Keturah Fisher EGFR-AF CITIZEN [place] >60 Normal >=60 [facility] Comment on above: Performed By: #### L IPA, CMP, CRP, NAT #### [facility] [address] [place] [address] Dr. Keturah Fisher EGFR-NON AF CITIZEN OF [place] >60 Normal >=60 [facility] Comment on above: Performed By: #### L IPA, CMP, CRP, NAT #### [facility] [address] [place] [address] Dr. Keturah Fisher Globulin (S) [Mass/Vol] 3.9 g/dL Normal [facility] Comment on above: Performed By: #### L IPA, CMP, CRP, NAT #### [facility] [address] [place] [address] Dr. Keturah Fisher Glucose [Mass/Vol] 70 mg/dL Critically low 74-106 [facility] Comment on above: Performed By: #### L IPA, CMP, CRP, NAT #### [facility] [address] [place] [address] Dr. Keturah Fisher Potassium [Moles/Vol] 3.2 mmol/L Critically low 3.5-5.1 [facility] [place] Comment on above: Performed By: #### L IPA, CMP, CRP, NAT #### [facility] [address] [place] [address] Dr. Keturah Fisher Protein [Mass/Vol] 7.9 g/dL Normal 6.4-8.2 [facility] Comment on above: Performed By: #### L IPA, CMP, CRP, NAT #### [facility] [address] [place] [address] Dr. Keturah Fisher Sodium [Moles/Vol] 140 mmol/L Normal 136-145 [facility] Comment on above: Performed By: #### L IPA, CMP, CRP, NAT #### [facility] [address] [place] [address] Dr. Keturah Fisher Urea nitrogen [Mass/Vol] 8.0 mg/dL Normal 7.0-18.0 [facility] [place] Comment on above: Performed By: #### L IPA, CMP, CRP, NAT #### [facility] [address] [place] [address] Dr. Keturah Fisher Urea nitrogen/Creatinine [Mass ratio] 9.4 mg/mg Normal [facility] [place] Comment on above: Performed By: #### L IPA, CMP, CRP, NAT #### [facility] [address] [place] [address] Dr. Keturah Fisher AMYLASEon 12-05-2021 Amylase [Catalytic activity/Vol] 223 U/L Critically high 25-115 [facility] [place] Comment on above: Performed By: #### L IPA, CMP, CRP, NAT #### [facility] [address] [place] [address] Dr. Keturah Fisher CBC AUTO DIFFon 12-05-2021 BASO # 0.1 103/ul Normal 0.0-0.1 [facility] [place] Comment on above: Performed By: #### C BC #### [facility] [address] [place] [address] Dr. Keturah Fisher Basophils/100 WBC (Bld) 0.7 % Normal 0.2-2.0 [facility] [place] Comment on above: Performed By: #### C BC #### [facility] [address] [place] [address] Dr. Keturah Fisher EO # 0.2 103/ul Normal 0.0-0.7 [facility] [place] Comment on above: Performed By: #### C BC #### [facility] [address] [place] [address] Dr. Keturah Fisher Eosinophils/100 WBC (Bld) 1.7 % Normal 0.9-7.0 [facility] [place] Comment on above: Performed By: #### C BC #### [facility] [address] [place] [address] Dr. Keturah Fisher Erythrocyte distribution width (RBC) [Ratio] 13.0 % Normal 11.0-15.0 [facility] [place] Comment on above: Performed By: #### C BC #### [facility] [address] [place] [address] Dr. Keturah Fsiher Hematocrit (Bld) [Volume fraction] 44.9 % Normal 36.0-48.0 [facility] [place] Comment on above: Performed By: #### C BC #### [facility] [address] [place] [address] Dr. Keturah Fisher Hemoglobin (Bld) [Mass/Vol] 15.1 g/dL Normal 12.0-16.0 [facility] [place] Comment on above: Performed By: #### C BC #### [facility] [address] [place] [address] Dr. Keturah Fisher IG # 0.02 10e3/ul Normal 0.00-0.03 [facility] [place] Comment on above: Performed By: #### C BC #### [facility] [address] [place] [address] Dr. Keturah Fisher IG % 0.2 % Normal 0.0-0.5 [facility] Comment on above: Performed By: #### C BC #### [facility] [address] [place] [address] Dr. Keturah Fisher LYMPH # 2.8 103/ul Normal 1.2-3.8 [facility] [place] Comment on above: Performed By: #### C BC #### [facility] [address] [place] [address] Dr. Keturah Fisher Lymphocytes/100 WBC (Bld) 29.8 % Normal 20.5-60.0 [facility] [place] Comment on above: Performed By: #### C BC #### [facility] [address] [place] [address] Dr. Keturah Fisher MANUAL DIFF REQ NO Normal [facility] Comment on above: Performed By: #### C BC #### [facility] [address] [place] [address] Dr. Keturah Fisher MCH (RBC) [Entitic mass] 32.4 pg Normal 26.7-34.0 [facility] [place] Comment on above: Performed By: #### C BC #### [facility] [address] [place] [address] Dr. Keturah Fisher MCHC (RBC) [Mass/Vol] 33.6 g/dL Normal 29.9-35.2 [facility] [place] Comment on above: Performed By: #### C BC #### [facility] [address] [place] [address] Dr. Keturah Fisher MCV (RBC) [Entitic vol] 96.4 fL Normal 81.0-99.0 [facility] [place] Comment on above: Performed By: #### C BC #### [facility] [address] [place] [address] Dr. Keturah Fisher MONO # 0.6 103/ul Normal 0.3-0.8 [facility] [place] Comment on above: Performed By: #### C BC #### [facility] [address] [place] [address] Dr. Keturah Fisher Monocytes/100 WBC (Bld) 6.3 % Normal 1.7-12.0 [facility] [place] Comment on above: Performed By: #### C BC #### [facility] [address] [place] [address] Dr. Keturah Fisher NEUT # 5.7 103/ul Normal 1.4-6.5 [facility] Comment on above: Performed By: #### C BC #### [facility] [address] [place] [address] Dr. Keturah Fisher Neutrophils/100 WBC (Bld) 61.3 % Normal 43.0-75.0 [facility] [place] Comment on above: Performed By: #### C BC #### [facility] [address] [place] [address] Dr. Keturah Fisher Platelet mean volume (Bld) [Entitic vol] 10.7 fL Normal 9.5-13.5 [facility] [place] Comment on above: Performed By: #### C BC #### [facility] [address] [place] [address] Dr. Keturah Fisher PLT 217 103/ul Normal 150-450 [facility] [place] Comment on above: Performed By: #### C BC #### [facility] [address] [place] [address] Dr. Keturah Fisher RBC 4.66 106/ul Normal 4.20-5.40 [facility] [place] Comment on above: Performed By: #### C BC #### [facility] [address] [place] [address] Dr. Keturah Fisher WBC 9.2 103/ul Normal 4.0-11.0 [facility] [place] Comment on above: Performed By: #### C BC #### [facility] [address] [place] [address] Dr. Keturah Fisher LIPASEon 12-05-2021 Lipase [Catalytic activity/Vol] 725.0 U/L Critically high 73.0-393.0 [facility] [place] Comment on above: Performed By: #### L IPA, CMP, CRP, NAT #### [facility] [address] [place] [address] Dr. Keturah Fisher PROF 14(COMP METB)on 022 Albumin [Mass/Vol] 4.2 g/dL Normal 3.4-5.0 [facility] Comment on above: Performed By: #### L IPA, CMP, CRP, NAT #### [facility] [address] [place] [address] Dr. Keturah Fisher Albumin/Globulin [Mass ratio] 1.2 {ratio} Normal [facility] [place] Comment on above: Performed By: #### L IPA, CMP, CRP, NAT #### [facility] [address] [place] [address] Dr. Keturah Fisher ALP [Catalytic activity/Vol] 158 U/L Critically high 46-116 [facility] [place] Comment on above: Performed By: #### L IPA, CMP, CRP, NAT #### [facility] [address] [address] [address] Keturah Fisher ALT [Catalytic activity/Vol] 20 U/L Normal 14-59 [facility] [place] Comment on above: Performed By: #### L IPA, CMP, CRP, NAT #### [facility] [address] [place] [address] Dr. Keturah Fisher Anion gap [Moles/Vol] 14.0 mmol/L Normal [facility] Comment on above: Performed By: #### L IPA, CMP, CRP, NAT #### [facility] [address] [place] [address] Dr. Keturah Fisher AST [Catalytic activity/Vol] 27 U/L Normal 15-37 [facility] [place] Comment on above: Performed By: #### L IPA, CMP, CRP, NAT #### [facility] [address] [place] [address] Dr. Keturah Fisher Bilirubin [Mass/Vol] 0.3 mg/dL Normal 0.2-1.0 [facility] [place] Comment on above: Performed By: #### L IPA, CMP, CRP, NAT #### [facility] [address] [place] [address] Dr. Keturah Fisher Calcium [Mass/Vol] 10.1 mg/dL Normal 8.5-10.1 [facility] Comment on above: Performed By: #### L IPA, CMP, CRP, NAT #### [facility] [address] [place] [address] Dr. Keturah Fisher Chloride [Moles/Vol] 105 mmol/L Normal 98-107 [facility] [place] Comment on above: Performed By: #### L IPA, CMP, CRP, NAT #### [facility] [address] [address] [address] Keturah Fisher CO2 [Moles/Vol] 24.9 mmol/L Normal 21.0-32.0 [facility] Comment on above: Performed By: #### L IPA, CMP, CRP, NAT #### [facility] [address] [address] [address] Keturah Fisher Creatinine [Mass/Vol] 0.77 mg/dL Normal 0.55-1.02 [facility] [place] Comment on above: Performed By: #### L IPA, CMP, CRP, NAT #### [facility] [address] [address] [address] Keturah Fisher EGFR-AF CITIZEN OF [place] >60 Normal >=60 [facility] Comment on above: Performed By: #### L IPA, CMP, CRP, NAT #### [facility] [address] [address] [address] Keturah Fisher EGFR-NON AF CITIZEN OF [place] >60 Normal >=60 [facility] [place] Comment on above: Performed By: #### L IPA, CMP, CRP, NAT #### [facility] [address] [address] [address] Keturah Fisher Globulin (S) [Mass/Vol] 3.5 g/dL Normal [facility] [place] Comment on above: Performed By: #### L IPA, CMP, CRP, NAT #### [facility] [address] [address] [address] Keturah Fisher Glucose [Mass/Vol] 91 mg/dL Normal 74-106 [facility] Comment on above: Performed By: #### L IPA, CMP, CRP, NAT #### [facility] [address] [address] [address] Keturah Fisher Potassium [Moles/Vol] 3.9 mmol/L Normal 3.5-5.1 [facility] [place] Comment on above: Performed By: #### L IPA, CMP, CRP, NAT #### [facility] [address] [address] [address] Keturah Fisher Protein [Mass/Vol] 7.7 g/dL Normal 6.4-8.2 [facility] Comment on above: Performed By: #### L IPA, CMP, CRP, NAT #### [facility] [address] [address] [address] Keturah Fisher Sodium [Moles/Vol] 140 mmol/L Normal 136-145 [facility] Comment on above: Performed By: #### L IPA, CMP, CRP, NAT #### [facility] [address] [place] [address] Dr. Keturah Fisher Urea nitrogen [Mass/Vol] 8.0 mg/dL Normal 7.0-18.0 [facility] [place] Comment on above: Performed By: #### L IPA, CMP, CRP, NAT #### [facility] [address] [place] [address] Dr. Keturah Fisher Urea nitrogen/Creatinine [Mass ratio] 10.4 mg/mg Normal [facility] [place] Comment on above: Performed By: #### L IPA, CMP, CRP, NAT #### [facility] [address] [place] [address] Dr. Keturah Fisher AMYLASEon 10-11-2021 Amylase [Catalytic activity/Vol] 134 U/L Critically high 25-115 [facility] [place] Comment on above: Performed By: #### C BC #### [facility] [address] [place] [address] Dr. Keturah Fisher CBC AUTO DIFFon 10-11-2021 BASO # 0.1 103/ul Normal 0.0-0.1 [facility] [place] Comment on above: Performed By: #### L IPA, CMP, CRP, NAT #### [facility] [address] [place] [address] Dr. Keturah Fisher Basophils/100 WBC (Bld) 1.0 % Normal 0.2-2.0 [facility] [place] Comment on above: Performed By: #### L IPA, CMP, CRP, NAT #### [facility] [address] [place] [address] Dr. Keturah Fisher EO # 0.2 103/ul Normal 0.0-0.7 [facility] [place] Comment on above: Performed By: #### L IPA, CMP, CRP, NAT #### [facility] [address] [place] [address] Dr. Keturah Fisher Eosinophils/100 WBC (Bld) 2.0 % Normal 0.9-7.0 [facility] [place] Comment on above: Performed By: #### L IPA, CMP, CRP, NAT #### [facility] [address] [address] [address] Keturah Fisher Erythrocyte distribution width (RBC) [Ratio] 13.2 % Normal 11.0-15.0 [facility] [place] Comment on above: Performed By: #### L IPA, CMP, CRP, NAT #### [facility] [address] [address] [address] Keturah Fisher Hematocrit (Bld) [Volume fraction] 44.7 % Normal 36.0-48.0 [facility] [place] Comment on above: Performed By: #### L IPA, CMP, CRP, NAT #### [facility] [address] [place] [address] Dr. Keturah Fisher Hemoglobin (Bld) [Mass/Vol] 15.0 g/dL Normal 12.0-16.0 [facility] [place] Comment on above: Performed By: #### L IPA, CMP, CRP, NAT #### [facility] [address] [place] [address] Dr. Keturah Fisher IG # 0.02 10e3/ul Normal 0.00-0.03 [facility] [place] Comment on above: Performed By: #### L IPA, CMP, CRP, NAT #### [facility] [address] [place] [address] Dr. Keturah Fisher IG % 0.2 % Normal 0.0-0.5 [facility] [place] Comment on above: Performed By: #### L IPA, CMP, CRP, NAT #### [facility] [address] [place] [address] Dr. Keturah Fisher LYMPH # 4.1 103/ul Critically high 1.2-3.8 [facility] Comment on above: Performed By: #### L IPA, CMP, CRP, NAT #### [facility] [address] [place] [address] Dr. Keturah Fisher Lymphocytes/100 WBC (Bld) 38.9 % Normal 20.5-60.0 [facility] [place] Comment on above: Performed By: #### L IPA, CMP, CRP, NAT #### [facility] [address] [place] [address] Dr. Keturah Fisher MANUAL DIFF REQ NO Normal [facility] Comment on above: Performed By: #### L IPA, CMP, CRP, NAT #### [facility] [address] [place] [address] Dr. Keturah Fisher MCH (RBC) [Entitic mass] 32.1 pg Normal 26.7-34.0 [facility] [place] Comment on above: Performed By: #### L IPA, CMP, CRP, NAT #### [facility] [address] [place] [address] Dr. Keturah Fisher MCHC (RBC) [Mass/Vol] 33.6 g/dL Normal 29.9-35.2 [facility] [place] Comment on above: Performed By: #### L IPA, CMP, CRP, NAT #### [facility] [address] [place] [address] Dr. Keturah Fisher MCV (RBC) [Entitic vol] 95.7 fL Normal 81.0-99.0 [facility] [place] Comment on above: Performed By: #### L IPA, CMP, CRP, NAT #### [facility] [address] [place] [address] Dr. Keturah Fisher MONO # 0.9 103/ul Critically high 0.3-0.[address] [facility] Comment on above: Performed By: #### L IPA, CMP, CRP, NAT #### [facility] [address] [place] [address] Dr. Keturah Fisher Monocytes/100 WBC (Bld) 8.8 % Normal 1.7-12.0 [facility] [place] Comment on above: Performed By: #### L IPA, CMP, CRP, NAT #### [facility] [address] [place] [address] Dr. Keturah Fisher NEUT # 5.2 103/ul Normal 1.4-6.5 [facility] [place] Comment on above: Performed By: #### L IPA, CMP, CRP, NAT #### [facility] [address] [place] [address] Dr. Keturah Fisher Neutrophils/100 WBC (Bld) 49.1 % Normal 43.0-75.0 [facility] [place] Comment on above: Performed By: #### L IPA, CMP, CRP, NAT #### [facility] [address] [place] [address] Dr. Keturah Fisher Platelet mean volume (Bld) [Entitic vol] 9.8 fL Normal 9.5-13.5 [facility] [place] Comment on above: Performed By: #### L IPA, CMP, CRP, NAT #### [facility] [address] [place] [address] Dr. Keturah Fisher PLT 299 103/ul Normal 150-450 [facility] [place] Comment on above: Performed By: #### L IPA, CMP, CRP, NAT #### [facility] [address] [place] [address] Dr. Keturah Fisher RBC 4.67 106/ul Normal 4.20-5.40 [facility] [place] Comment on above: Performed By: #### L IPA, CMP, CRP, NAT #### [facility] [address] [place] [address] Dr. Keturah Fisher WBC 10.5 103/ul Normal 4.0-11.0 [facility] [place] Comment on above: Performed By: #### L IPA, CMP, CRP, NAT #### [facility] [address] [place] [address] Dr. Keturah Fisher LIPASEon 10-11-2021 Lipase [Catalytic activity/Vol] 240.0 U/L Normal 73.0-393.0 [facility] [place] Comment on above: Performed By: #### C BC #### [facility] [address] [place] [address] Dr. Keturah Fisher PROF 14(COMP METB)on 022 Albumin [Mass/Vol] 4.3 g/dL Normal 3.4-5.0 [facility] Comment on above: Performed By: #### C BC #### [facility] [address] [place] [address] Dr. Keturah Fisher Albumin/Globulin [Mass ratio] 1.3 {ratio} Normal [facility] [place] Comment on above: Performed By: #### C BC #### [facility] [address] [place] [address] Dr. Keturah Fisher ALP [Catalytic activity/Vol] 162 U/L Critically high 46-116 [facility] [place] Comment on above: Performed By: #### C BC #### [facility] [address] [address] [address] Keturah Fisher ALT [Catalytic activity/Vol] 21 U/L Normal 14-59 [facility] [place] Comment on above: Performed By: #### C BC #### [facility] [address] [place] [address] Dr. Keturah Fisher Anion gap [Moles/Vol] 15.1 mmol/L Normal [facility] Comment on above: Performed By: #### C BC #### [facility] [address] [place] [address] Dr. Keturah Fisher AST [Catalytic activity/Vol] 16 U/L Normal 15-37 [facility] [place] Comment on above: Performed By: #### C BC #### [facility] [address] [place] [address] Dr. Keturah Fisher Bilirubin [Mass/Vol] 0.2 mg/dL Normal 0.2-1.0 [facility] [place] Comment on above: Performed By: #### C BC #### [facility] [address] [place] [address] Dr. Keturah Fisher Calcium [Mass/Vol] 9.6 mg/dL Normal 8.5-10.1 [facility] Comment on above: Performed By: #### C BC #### [facility] [address] [place] [address] Dr. Keturah Fisher Chloride [Moles/Vol] 104 mmol/L Normal 98-107 [facility] [place] Comment on above: Performed By: #### C BC #### [facility] [address] [place] [address] Dr. Keturah Fisher CO2 [Moles/Vol] 24.6 mmol/L Normal 21.0-32.0 [facility] Comment on above: Performed By: #### C BC #### [facility] [address] [place] [address] Dr. Keturah Fisher Creatinine [Mass/Vol] 0.88 mg/dL Normal 0.55-1.02 [facility] [place] Comment on above: Performed By: #### C BC #### [facility] [address] [place] [address] Dr. Keturah Fisher EGFR-AF CITIZEN [place] >60 Normal >=60 [facility] Comment on above: Performed By: #### C BC #### [facility] [address] [place] [address] Dr. Keturah Fisher EGFR-NON AF CITIZEN OF [place] >60 Normal >=60 [facility] [place] Comment on above: Performed By: #### C BC #### [facility] [address] [place] [address] Dr. Keturah Fisher Globulin (S) [Mass/Vol] 3.3 g/dL Normal [facility] [place] Comment on above: Performed By: #### C BC #### [facility] [address] [place] [address] Dr. Keturah Fisher Glucose [Mass/Vol] 111 mg/dL Critically high 74-106 [facility] Comment on above: Performed By: #### C BC #### [facility] [address] [place] [address] Dr. Keturah Fisher Potassium [Moles/Vol] 3.7 mmol/L Normal 3.5-5.1 [facility] Comment on above: Performed By: #### C BC #### [facility] [address] [place] [address] Dr. Keturah Fisher Protein [Mass/Vol] 7.6 g/dL Normal 6.4-8.2 The [facility] Comment on above: Performed By: #### C BC #### [facility] [address] [place] [address] Dr. Keturah Fisher Sodium [Moles/Vol] 140 mmol/L Normal 136-145 [facility] Comment on above: Performed By: #### C BC #### [facility] [address] [place] [address] Dr. Keturah Fisher Urea nitrogen [Mass/Vol] 11.0 mg/dL Normal 7.0-18.0 [facility] [place] Comment on above: Performed By: #### C BC #### [facility] [address] [address] [address] Keturah Fisher Urea nitrogen/Creatinine [Mass ratio] 12.5 mg/mg Normal [facility] [place] Comment on above: Performed By: #### C BC #### [facility] [address] [address] [address] Keturah Fisher PROTIMEon 10-11-2021 INR Coag (PPP) [Relative time] 0.94 {INR} Normal [facility] [place] Comment on above: Performed By: #### P T, PTT ####[facility] [id number] [address]Dr. Keturah Fisher INR GUIDELINES SEE BELOW Normal [facility] Comment on above: Result Comment: KARLY RED INR: 2.0 - 3.0 CONDITIONS NOT LISTED BELOW 2.5 - 3.5 FOR PROSTHETIC HEART VALVE REPLACEMENT 2.5 - 3.5 RECURRENT THROMBOSIS Performed By: #### P T, PTT ####[facility] [id number] [address]Dr. Keturah Fisher PT Coag (PPP) [Time] 10.2 s Normal 9.0-11.6 [facility] [place] Comment on above: Performed By: #### P T, PTT ####[facility] [id number] [address]Dr. Keturah Fisher PTTon 10-11-2021 aPTT Coag (Bld) [Time] 28.0 s Normal 22.3-36.2 [facility] Comment on above: Performed By: #### P T, PTT ####[facility] [id number] [address]DrGopal Fisher Amphetamine Screen Ql (U)Ord ered By: Christa Lopez on 10-09-2021 Amphetamines Ql (U) Negative Negative [facility] Barbiturates [Presence] in U rineOrdered By: Christa Lopez on 10-09-2021 Barbiturates Ql (U) Negative Negative [facility] Basophils Auto (Bld) [#/Vol] Ordered By: Christa Lopez on 10-09-2021 Basophils (Bld) [#/Vol] 0.1 10*3/uL 0.0-0.2 [facility] Basophils/100 WBC Auto (Bld) Ordered By: Christa Lopez on 10-09-2021 Basophils/100 WBC (Bld) 0.9 % . [facility] Benzodiazepines [Presence] i n UrineOrdered By: Christa Lopez on 10-09-2021 Benzodiazepines Ql (U) Negative Negative [facility] Bilirubin Auto test strip Ql (U)Ordered By: Christa Lopez on 10-09-2021 Bilirubin Ql (U) Negative Negative [facility] Blood hemoglobin measurement (mass/volume)Ordered By: Christa Lopez on 10-09-2021 Hemoglobin (Bld) [Mass/Vol] 15.7 g/dL 11.8-15.4 [facility] Blood leukocytes automated c ount (number/volume)Ordered By: Christa Lopez on 10-09-2021 WBC (Bld) [#/Vol] 10.1 10*3/uL 4.5-11.0 [facility] Body fluid albumin measureme nt (mass/volume)Ordered By: Christa Lopez on 10-09-2021 Albumin (Body fld) [Mass/Vol] 4.5 g/dL 3.2-5.5 [facility] Cannabinoids [Presence] in U rine by Screen methodOrdered By: Christa Lopez on 10-09-2021 Cannabinoids Screen Ql (U) Negative Negative [facility] Comment on above: These are unconfirme d results and should not be used for legal purposes. Drug Cut-Off Concentration: AMPH 1000 ng/mL BAILEY 200 ng/mL JAKE 200 ng/mL COCM 300 ng/mL OP 300 ng/mL PCP 25 ng/mL THC 20 ng/mL Creatinine and Glomerular fi ltration rate.predicted panel (S/P/Bld)Ordered By: Christa Lopez on 10-09-2021 Creatinine [Mass/Vol] 0.85 mg/dL 0.44-1.03 [facility] Eosinophils Auto (Bld) [#/Vo l]Ordered By: Christa Lopez on 10-09-2021 Eosinophils (Bld) [#/Vol] 0.1 10*3/uL 0.0-0.45 [facility] Eosinophils/100 WBC Auto (Bl d)Ordered By: Christa Lopez on 10-09-2021 Eosinophils/100 WBC (Bld) 1.2 % . [facility] Erythrocyte distribution wid th Auto (RBC) [Ratio]Ordered By: Christa Lopez on 10-09-2021 Erythrocyte distribution width (RBC) [Ratio] 13.5 % 11.9-15.3 [facility] Estimated glomerular filtrat ion rate (GFR) non- AmericanOrdered By: Christa Lopez on 10-09-2021 GFR/1.73 sq M.predicted among non-blacks MDRD (S/P/Bld) [Vol rate/Area] > 60 mL/Min [facility] Globulin Calc (S) [Mass/Vol] Ordered By: Christa Lopez on 10-09-2021 Globulin (S) [Mass/Vol] 2.9 g/dL [facility] Hematocrit Auto (Bld) [Volum e fraction]Ordered By: Christa Lopez on 10-09-2021 Hematocrit (Bld) [Volume fraction] 47.1 % 34.0-46.4 [facility] Ketones Auto test strip (U) [Mass/Vol]Ordered By: Christa Lopez on 10-09-2021 Ketones (U) [Mass/Vol] Negative Negative [facility] - Chemistry and C hemistry - challengeOrdered By: Christa Lopez on 10-09-2021 Lipase [Catalytic activity/Vol] 242.0 U/L - [facility] - Drug toxicology Ordered By: Christa Lopez on 10-09-2021 Opiates Ql (U) Negative Negative [facility] - Hematology and Cell countsOrdered By: Christa Lopez on 10-09-2021 Nucleated RBC/100 WBC (Bld) [Ratio] 0.1 % 0-0.5 [facility] Lymphocytes Auto (Bld) [#/Vo l]Ordered By: Christa Lopez on 10-09-2021 Lymphocytes (Bld) [#/Vol] 2.6 10*3/uL 1.00-4.8 [facility] Lymphocytes/100 WBC Auto (Bl d)Ordered By: Christa Lopez on 10-09-2021 Lymphocytes/100 WBC (Bld) 26.0 % . [facility] MCH Auto (RBC) [Entitic mass ]Ordered By: Christa Lopez on 10-09-2021 MCH (RBC) [Entitic mass] 32.4 pg 24.7-34.3 [facility] MCHC Auto (RBC) [Mass/Vol]Or dered By: Christa Lopez on 10-09-2021 MCHC (RBC) [Mass/Vol] 33.3 g/dL 32.0-35.0 [facility] MCV Auto (RBC) [Entitic vol] Ordered By: Christa Lopez on 10-09-2021 MCV (RBC) [Entitic vol] 97.3 fL 80-100 [facility] Monocytes Auto (Bld) [#/Vol] Ordered By: Christa Lopez on 10-09-2021 Monocytes (Bld) [#/Vol] 0.8 10*3/uL 0.0-0.8 [facility] Monocytes/100 WBC Auto (Bld) Ordered By: Christa Lopez on 10-09-2021 Monocytes/100 WBC (Bld) 7.6 % . [facility] Neutrophils Auto (Bld) [#/Vo l]Ordered By: Christa Lopez on 10-09-2021 Neutrophils (Bld) [#/Vol] 6.5 10*3/uL 1.8-7.7 [facility] Neutrophils/100 WBC Auto (Bl d)Ordered By: Christa Lopez on 10-09-2021 Neutrophils/100 WBC (Bld) 64.3 % . [facility] No Panel InformationOrdered By: Christa Lopez on 10-09-2021 Estimated GFR () > 60 mL/Min [facility] Comment on above: GFR estimated refere nce range: According to KDOQI guidelines, <60 ml/min/1.73m2 is sufficient to diagnose a patient with chronic kidney disease. Pharmacy Creatinine Clearance (Chem 61.23 [facility] Phencyclidine Screen Ql (U)O rdered By: Christa Lopez on 10-09-2021 Phencyclidine Ql (U) Negative Negative [facility] Platelet mean volume Auto (B ld) [Entitic vol]Ordered By: Christa Lopez on 10-09-2021 Platelet mean volume (Bld) [Entitic vol] 8.5 fL 6.3-10.7 [facility] Platelets Auto (Bld) [#/Vol] Ordered By: Christa Lopez on 10-09-2021 Platelets (Bld) [#/Vol] 284 10*3/uL 150-450 [facility] Protein Auto test strip (U) [Mass/Vol]Ordered By: Christa Lopez on 10-09-2021 Protein (U) [Mass/Vol] Negative Negative [facility] Protein [Mass/volume] in Ser um or PlasmaOrdered By: Christa Lopez on 10-09-2021 Protein [Mass/Vol] 7.4 g/dL 6.1-7.9 [facility] RBC Auto (Bld) [#/Vol]Ordere d By: Christa Lopez on 10-09-2021 RBC (Bld) [#/Vol] 4.84 10*6/uL 3.60-5.00 [facility] Serum or plasma alanine hughes otransferase measurement without P-5'-P (enzymatic activiOrdered By: Christa Lopez on 10-09-2021 ALT No additional P-5'-P [Catalytic activity/Vol] 19 U/L 10-60 [facility] Serum or plasma albumin/glob ulin mass ratioOrdered By: Christa Lopez on 10-09-2021 Albumin/Globulin [Mass ratio] 1.6 {ratio} [facility] Serum or plasma alkaline jaqueline sphatase measurement (enzymatic activity/volume)Ordered By: Christa Lopez on 10-09-2021 ALP [Catalytic activity/Vol] 138 U/L 32-92 [facility] Serum or plasma aspartate am inotransferase measurement (enzymatic activity/volume)Ordered By: Christa Lopez on 10-09-2021 AST [Catalytic activity/Vol] 31 U/L 10-42 [facility] Serum or plasma calcium priscilla urement (mass/volume)Ordered By: Christa Lopez on 10-09-2021 Calcium [Mass/Vol] 10.3 mg/dL 8.2-10.2 [facility] Serum or plasma chloride daron surement (moles/volume)Ordered By: Christa Lopez on 10-09-2021 Chloride [Moles/Vol] 100 mmol/L 95-114 [facility] Serum or plasma glucose priscilla urement (mass/volume)Ordered By: Christa Lopez on 10-09-2021 Glucose [Mass/Vol] 75 mg/dL 70-100 [facility] Comment on above: ADA recommended refe rence range Random Glucose Reference Range is dependent on time and content of last meal. Glucose of more than 200 mg/dL in a nonstressed, ambulatory subject supports the diagnosis of Diabetes Mellitus. Serum or plasma potassium me asurement (moles/volume)Ordered By: Christa Lopez on 10-09-2021 Potassium [Moles/Vol] 3.9 mmol/L 3.5-5.1 [facility] Serum or plasma sodium measu rement (moles/volume)Ordered By: Christa Lopez on 10-09-2021 Sodium [Moles/Vol] 136 mmol/L 136-146 [facility] Serum or plasma total biliru bin measurement (mass/volume)Ordered By: Christa Lopez on 10-09-2021 Bilirubin [Mass/Vol] 0.4 mg/dL 0.3-1.2 [facility] Serum or plasma total carbon dioxide measurement (moles/volume)Ordered By: Christa Lopez on 10-09-2021 CO2 [Moles/Vol] 24.1 mmol/L 22.0-30.0 [facility] Serum or plasma urea nitroge n measurement (mass/volume)Ordered By: Christa Lopez on 10-09-2021 Urea nitrogen [Mass/Vol] 12 mg/dL 9-23 [facility] Troponin I.cardiac [Mass/vol ume] in Serum or Plasma by High sensitivity methodOrdered By: Christa Lopez on 10-09-2021 Troponin I.cardiac High sensitivity method [Mass/Vol] 3 pg/mL 0-15 [facility] Urine appearanceOrdered By: Christa Lopez on 10-09-2021 Appearance (U) Clear Clear [facility] Urine cocaine detectionOrder ed By: Christa Lopez on 10-09-2021 Cocaine Ql (U) Negative Negative [facility] Urine colorOrdered By: Christa Lopez on 10-09-2021 Color (U) Yellow Yellow [facility] Urine glucose measurement by automated test strip (mass/volume)Ordered By: Christa Lopez on 10-09-2021 Glucose Auto test strip (U) [Mass/Vol] Normal mg/dL Normal [facility] Urine hemoglobin detection b y automated test stripOrdered By: Christa Lopez on 10-09-2021 Hemoglobin Auto test strip Ql (U) Negative Negative [facility] Urine leukocyte esterase det ection by automated test stripOrdered By: Christa Lopez on 10-09-2021 Leukocyte esterase Auto test strip Ql (U) Negative Negative [facility] Urine nitrite detection by a utomated test stripOrdered By: Christa Lopez on 10-09-2021 Nitrite Auto test strip Ql (U) Negative Negative [facility] Urobilinogen Auto test strip (U) [Mass/Vol]Ordered By: Christa Lopez on 10-09-2021 Urobilinogen (U) [Mass/Vol] Normal mg/dL Normal [facility] pH Auto test strip (U)Ordere d By: Christa Lopez on 10-09-2021 pH (U) 1.025 [pH] 1.001-1.030 [facility] pH (U) 5.5 [pH] 5.0-9.0 [facility] Albumin [Mass/volume] in Ser um or PlasmaOrdered By: Reinaldo Amor on 10-04-2021 Albumin [Mass/Vol] 3.6 g/dL 3.2-5.5 [facility] Basophils Auto (Bld) [#/Vol] Ordered By: Reinaldo Amor on 10-04-2021 Basophils (Bld) [#/Vol] 0.1 10*3/uL 0.0-0.2 [facility] Basophils/100 WBC Auto (Bld) Ordered By: Reinadlo Amor on 10-04-2021 Basophils/100 WBC (Bld) 0.8 % . [facility] Bilirubin Auto test strip Ql (U)Ordered By: Reinaldo Amor on 10-04-2021 Bilirubin Ql (U) Negative Negative [facility] Blood hemoglobin measurement (mass/volume)Ordered By: Reinaldo Amor on 10-04-2021 Hemoglobin (Bld) [Mass/Vol] 13.9 g/dL 11.8-15.4 [facility] Blood leukocytes automated c ount (number/volume)Ordered By: Reinaldo Amor on 10-04-2021 WBC (Bld) [#/Vol] 10.4 10*3/uL 4.5-11.0 [facility] Creatinine and Glomerular fi ltration rate.predicted panel (S/P/Bld)Ordered By: Reinaldo Amor on 10-04-2021 Creatinine [Mass/Vol] 0.73 mg/dL 0.44-1.03 [facility] Direct bilirubin measurement Ordered By: Reinaldo Amor on 10-04-2021 Bilirubin.direct [Mass/Vol] mg/dL 0.0-0.4 [facility] Eosinophils Auto (Bld) [#/Vo l]Ordered By: Reinaldo Amor on 10-04-2021 Eosinophils (Bld) [#/Vol] 0.1 10*3/uL 0.0-0.45 [facility] Eosinophils/100 WBC Auto (Bl d)Ordered By: Reinaldo mAor on 10-04-2021 Eosinophils/100 WBC (Bld) 0.5 % . [facility] Erythrocyte distribution wid th Auto (RBC) [Ratio]Ordered By: Reinaldo Amor on 10-04-2021 Erythrocyte distribution width (RBC) [Ratio] 13.7 % 11.9-15.3 [facility] Estimated glomerular filtrat ion rate (GFR) non- AmericanOrdered By: Reinaldo Amor on 10-04-2021 GFR/1.73 sq M.predicted among non-blacks MDRD (S/P/Bld) [Vol rate/Area] > 60 mL/Min [facility] Globulin Calc (S) [Mass/Vol] Ordered By: Reinaldo Amor on 10-04-2021 Globulin (S) [Mass/Vol] 2.6 g/dL [facility] Hematocrit Auto (Bld) [Volum e fraction]Ordered By: Reinaldo Amor on 10-04-2021 Hematocrit (Bld) [Volume fraction] 41.1 % 34.0-46.4 [facility] Ketones Auto test strip (U) [Mass/Vol]Ordered By: Reinaldo Amor on 10-04-2021 Ketones (U) [Mass/Vol] Negative Negative [facility] - Chemistry and C hemistry - challengeOrdered By: Reinaldo Amor on 10-04-2021 Lipase [Catalytic activity/Vol] 107.0 U/L - [facility] - Hematology and Cell countsOrdered By: Reinaldo Amor on 10-04-2021 Nucleated RBC/100 WBC (Bld) [Ratio] 0.1 % 0-0.5 [facility] Lymphocytes Auto (Bld) [#/Vo l]Ordered By: Reinaldo Amor on 10-04-2021 Lymphocytes (Bld) [#/Vol] 2.5 10*3/uL 1.00-4.8 [facility] Lymphocytes/100 WBC Auto (Bl d)Ordered By: Reinaldo Amor on 10-04-2021 Lymphocytes/100 WBC (Bld) 24.1 % . [facility] MCH Auto (RBC) [Entitic mass ]Ordered By: Reinaldo Amor on 10-04-2021 MCH (RBC) [Entitic mass] 32.6 pg 24.7-34.3 [facility] MCHC Auto (RBC) [Mass/Vol]Or dered By: Reinaldo Amor on 10-04-2021 MCHC (RBC) [Mass/Vol] 33.8 g/dL 32.0-35.0 [facility] MCV Auto (RBC) [Entitic vol] Ordered By: Reinaldo Amor on 10-04-2021 MCV (RBC) [Entitic vol] 96.5 fL 80-100 [facility] Monocytes Auto (Bld) [#/Vol] Ordered By: Reinaldo Amor on 10-04-2021 Monocytes (Bld) [#/Vol] 0.9 10*3/uL 0.0-0.8 [facility] Monocytes/100 WBC Auto (Bld) Ordered By: Reinaldo Amor on 07-29-2022 Monocytes/100 WBC (Bld) 8.4 % . [facility] Neutrophils Auto (Bld) [#/Vo l]Ordered By: Reinaldo Amor on 10-04-2021 Neutrophils (Bld) [#/Vol] 6.9 10*3/uL 1.8-7.7 [facility] Neutrophils/100 WBC Auto (Bl d)Ordered By: Reinaldo Amor on 10-04-2021 Neutrophils/100 WBC (Bld) 66.2 % . [facility] No Panel InformationOrdered By: Reinaldo Amor on 10-04-2021 Estimated GFR () > 60 mL/Min [facility] Comment on above: GFR estimated refere nce range: According to KDOQI guidelines, <60 ml/min/1.73m2 is sufficient to diagnose a patient with chronic kidney disease. Pharmacy Creatinine Clearance (Chem 71.30 [facility] Platelet mean volume Auto (B ld) [Entitic vol]Ordered By: Reinaldo Amor on 10-04-2021 Platelet mean volume (Bld) [Entitic vol] 8.0 fL 6.3-10.7 [facility] Platelets Auto (Bld) [#/Vol] Ordered By: Reinaldo Amor on 10-04-2021 Platelets (Bld) [#/Vol] 268 10*3/uL 150-450 [facility] Protein Auto test strip (U) [Mass/Vol]Ordered By: Reinaldo Amor on 10-04-2021 Protein (U) [Mass/Vol] Negative Negative [facility] Protein [Mass/volume] in Ser um or PlasmaOrdered By: Reinaldo Amor on 10-04-2021 Protein [Mass/Vol] 6.2 g/dL 6.1-7.9 [facility] RBC Auto (Bld) [#/Vol]Ordere d By: Reinaldo Amor on 10-04-2021 RBC (Bld) [#/Vol] 4.26 10*6/uL 3.60-5.00 [facility] Serum or plasma alanine hughes otransferase measurement without P-5'-P (enzymatic activiOrdered By: Reinaldo Amor on 10-04-2021 ALT No additional P-5'-P [Catalytic activity/Vol] 15 U/L 10-60 [facility] Serum or plasma albumin/glob ulin mass ratioOrdered By: Reinaldo Amor on 10-04-2021 Albumin/Globulin [Mass ratio] 1.4 {ratio} [facility] Serum or plasma alkaline jaqueline sphatase measurement (enzymatic activity/volume)Ordered By: Reinaldo Amor on 10-04-2021 ALP [Catalytic activity/Vol] 103 U/L 32-92 [facility] Serum or plasma amylase priscilla urement (enzymatic activity/volume)Ordered By: Reinaldo Amor on 10-04-2021 Amylase [Catalytic activity/Vol] 134 U/L 28-100 [facility] Serum or plasma aspartate am inotransferase measurement (enzymatic activity/volume)Ordered By: Reinaldo Amor on 10-04-2021 AST [Catalytic activity/Vol] 20 U/L 10-42 [facility] Serum or plasma calcium priscilla urement (mass/volume)Ordered By: Reinaldo Amor on 10-04-2021 Calcium [Mass/Vol] 9.6 mg/dL 8.2-10.2 [facility] Serum or plasma chloride daron surement (moles/volume)Ordered By: Reinaldo Amor on 10-04-2021 Chloride [Moles/Vol] 103 mmol/L 95-114 [facility] Serum or plasma ethanol priscilla urement (mass/volume)Ordered By: Reinaldo Amor on 10-04-2021 Ethanol [Mass/Vol] mg/dL [facility] Ethanol [Mass/Vol] TNP [facility] Comment on above: Test not performed Serum or plasma glucose priscilla urement (mass/volume)Ordered By: Reinaldo Amor on 10-04-2021 Glucose [Mass/Vol] 120 mg/dL 70-100 [facility] Comment on above: ADA recommended refe rence range Random Glucose Reference Range is dependent on time and content of last meal. Glucose of more than 200 mg/dL in a nonstressed, ambulatory subject supports the diagnosis of Diabetes Mellitus. Serum or plasma non-glucuron idated bilirubin measurement (mass/volume)Ordered By: Reinaldo Amor on 10-04-2021 Bilirubin.indirect [Mass/Vol] TNP [facility] Comment on above: Test not performed Serum or plasma potassium me asurement (moles/volume)Ordered By: Reinaldo Amor on 10-04-2021 Potassium [Moles/Vol] 3.7 mmol/L 3.5-5.1 [facility] Serum or plasma sodium measu rement (moles/volume)Ordered By: Reinaldo Amor on 10-04-2021 Sodium [Moles/Vol] 137 mmol/L 136-146 [facility] Serum or plasma total biliru bin measurement (mass/volume)Ordered By: Reinaldo Amor on 10-04-2021 Bilirubin [Mass/Vol] 0.5 mg/dL 0.3-1.2 [facility] Serum or plasma total carbon dioxide measurement (moles/volume)Ordered By: Reinaldo Amor on 10-04-2021 CO2 [Moles/Vol] 24.9 mmol/L 22.0-30.0 [facility] Serum or plasma urea nitroge n measurement (mass/volume)Ordered By: Reinaldo Amor on 10-04-2021 Urea nitrogen [Mass/Vol] 7 mg/dL 9 [facility] Urine appearanceOrdered By: Reinaldo Amor on 10-04-2021 Appearance (U) Clear Clear [facility] Urine colorOrdered By: Ml Amor on 10-04-2021 Color (U) Yellow Yellow [facility] Urine glucose measurement by automated test strip (mass/volume)Ordered By: Reinaldo Amor on 10-04-2021 Glucose Auto test strip (U) [Mass/Vol] Normal mg/dL Normal [facility] Urine hemoglobin detection b y automated test stripOrdered By: Reinaldo Amor on 10-04-2021 Hemoglobin Auto test strip Ql (U) Negative Negative [facility] Urine leukocyte esterase det ection by automated test stripOrdered By: Reinaldo Amor on 10-04-2021 Leukocyte esterase Auto test strip Ql (U) Negative Negative [facility] Urine nitrite detection by a utomated test stripOrdered By: Reinaldo Amor on 10-04-2021 Nitrite Auto test strip Ql (U) Negative Negative [facility] Urobilinogen Auto test strip (U) [Mass/Vol]Ordered By: Reinaldo Amor on 10-04-2021 Urobilinogen (U) [Mass/Vol] Normal mg/dL Normal [facility] pH Auto test strip (U)Ordere d By: Reinaldo Amor on 10-04-2021 pH (U) 1.030 [pH] 1.001-1.030 [facility] pH (U) 5.5 [pH] 5.0-9.0 [facility] Basophils Auto (Bld) [#/Vol] Ordered By: Reinaldo Amor on 09-25-2021 Basophils (Bld) [#/Vol] 0.1 10*3/uL 0.0-0.2 [facility] Basophils/100 WBC Auto (Bld) Ordered By: Reinaldo Amor on 09-25-2021 Basophils/100 WBC (Bld) 1.2 % . [facility] Blood hemoglobin measurement (mass/volume)Ordered By: Reinaldo Amor on 09-25-2021 Hemoglobin (Bld) [Mass/Vol] 14.2 g/dL 11.8-15.4 [facility] Blood leukocytes automated c ount (number/volume)Ordered By: Reinaldo Amor on 09-25-2021 WBC (Bld) [#/Vol] 9.3 10*3/uL 4.5-11.0 [facility] Body fluid albumin measureme nt (mass/volume)Ordered By: PROVIDER OJNATHAN on 09-25-2021 Albumin (Body fld) [Mass/Vol] 4.3 g/dL 3.2-5.5 [facility] Creatinine and Glomerular fi ltration rate.predicted panel (S/P/Bld)Ordered By: PROVIDER JONATHAN on 09-25-2021 Creatinine [Mass/Vol] 0.82 mg/dL 0.44-1.03 [facility] Eosinophils Auto (Bld) [#/Vo l]Ordered By: Reinaldo Amor on 09-25-2021 Eosinophils (Bld) [#/Vol] 0.2 10*3/uL 0.0-0.45 [facility] Eosinophils/100 WBC Auto (Bl d)Ordered By: Reinaldo Amor on 09-25-2021 Eosinophils/100 WBC (Bld) 1.9 % . [facility] Erythrocyte distribution wid th Auto (RBC) [Ratio]Ordered By: Reinaldo Amor on 09-25-2021 Erythrocyte distribution width (RBC) [Ratio] 13.7 % 11.9-15.3 [facility] Estimated glomerular filtrat ion rate (GFR) non- AmericanOrdered By: PROVIDER TEMMaty on 09-25-2021 GFR/1.73 sq M.predicted among non-blacks MDRD (S/P/Bld) [Vol rate/Area] > 60 mL/Min [facility] Globulin Calc (S) [Mass/Vol] Ordered By: PROVIDER TEMP on 09-25-2021 Globulin (S) [Mass/Vol] 3.3 g/dL [facility] Hematocrit Auto (Bld) [Volum e fraction]Ordered By: Reinaldo Amor on 09-25-2021 Hematocrit (Bld) [Volume fraction] 42.1 % 34.0-46.4 [facility] - Chemistry and C hemistry - challengeOrdered By: Reinaldo Amor on 09-25-2021 Lipase [Catalytic activity/Vol] 64.0 U/L 22-51 [facility] - Hematology and Cell countsOrdered By: Reinaldo Amor on 09-25-2021 Nucleated RBC/100 WBC (Bld) [Ratio] 0.1 % 0-0.5 [facility] Lymphocytes Auto (Bld) [#/Vo l]Ordered By: Reinaldo Amor on 09-25-2021 Lymphocytes (Bld) [#/Vol] 2.6 10*3/uL 1.00-4.8 [facility] Lymphocytes/100 WBC Auto (Bl d)Ordered By: Reinaldo Amor on 09-25-2021 Lymphocytes/100 WBC (Bld) 28.1 % . [facility] MCH Auto (RBC) [Entitic mass ]Ordered By: Reinaldo Amor on 09-25-2021 MCH (RBC) [Entitic mass] 32.5 pg 24.7-34.3 [facility] MCHC Auto (RBC) [Mass/Vol]Or dered By: Reinaldo Amor on 09-25-2021 MCHC (RBC) [Mass/Vol] 33.7 g/dL 32.0-35.0 [facility] MCV Auto (RBC) [Entitic vol] Ordered By: Reinaldo Amor on 09-25-2021 MCV (RBC) [Entitic vol] 96.7 fL 80-100 [facility] Monocytes Auto (Bld) [#/Vol] Ordered By: Reinaldo Amor on 09-25-2021 Monocytes (Bld) [#/Vol] 0.8 10*3/uL 0.0-0.8 [facility] Monocytes/100 WBC Auto (Bld) Ordered By: Reinaldo Amor on 09-25-2021 Monocytes/100 WBC (Bld) 8.2 % . [facility] Neutrophils Auto (Bld) [#/Vo l]Ordered By: Reinaldo Amor on 09-25-2021 Neutrophils (Bld) [#/Vol] 5.6 10*3/uL 1.8-7.7 [facility] Neutrophils/100 WBC Auto (Bl d)Ordered By: Reinaldo Amor on 09-25-2021 Neutrophils/100 WBC (Bld) 60.6 % . [facility] No Panel InformationOrdered By: PROVIDER TEMP on 09-25-2021 Estimated GFR () > 60 mL/Min [facility] Comment on above: GFR estimated refere nce range: According to KDOQI guidelines, <60 ml/min/1.73m2 is sufficient to diagnose a patient with chronic kidney disease. Pharmacy Creatinine Clearance (Chem 63.47 [facility] Platelet mean volume Auto (B ld) [Entitic vol]Ordered By: Reinaldo Amor on 09-25-2021 Platelet mean volume (Bld) [Entitic vol] 8.6 fL 6.3-10.7 [facility] Platelets Auto (Bld) [#/Vol] Ordered By: Reinaldo Amor on 09-25-2021 Platelets (Bld) [#/Vol] 221 10*3/uL 150-450 [facility] Protein [Mass/volume] in Ser um or PlasmaOrdered By: PROVIDER TEMP on 09-25-2021 Protein [Mass/Vol] 7.6 g/dL 6.1-7.9 [facility] RBC Auto (Bld) [#/Vol]Ordere d By: Reinaldo Amor on 09-25-2021 RBC (Bld) [#/Vol] 4.35 10*6/uL 3.60-5.00 [facility] Serum or plasma alanine hughes otransferase measurement without P-5'-P (enzymatic activiOrdered By: PROVIDER TEMP on 09-25-2021 ALT No additional P-5'-P [Catalytic activity/Vol] 14 U/L 10-60 [facility] Serum or plasma albumin/glob ulin mass ratioOrdered By: PROVIDER TEMP on 09-25-2021 Albumin/Globulin [Mass ratio] 1.3 {ratio} [facility] Serum or plasma alkaline jaqueline sphatase measurement (enzymatic activity/volume)Ordered By: PROVIDER TEMP on 09-25-2021 ALP [Catalytic activity/Vol] 127 U/L 32-92 [facility] Serum or plasma amylase priscilla urement (enzymatic activity/volume)Ordered By: Reinaldo Amor on 09-25-2021 Amylase [Catalytic activity/Vol] 171 U/L 28-100 [facility] Serum or plasma aspartate am inotransferase measurement (enzymatic activity/volume)Ordered By: PROVIDER TEMP on 09-25-2021 AST [Catalytic activity/Vol] 21 U/L 10-42 [facility] Serum or plasma calcium priscilla urement (mass/volume)Ordered By: PROVIDER TEMP on 09-25-2021 Calcium [Mass/Vol] 10.1 mg/dL 8.2-10.2 [facility] Serum or plasma chloride daron surement (moles/volume)Ordered By: PROVIDER TEMP on 09-25-2021 Chloride [Moles/Vol] 103 mmol/L 95-114 [facility] Serum or plasma glucose priscilla urement (mass/volume)Ordered By: PROVIDER TEMP on 09-25-2021 Glucose [Mass/Vol] 93 mg/dL 70-100 [facility] Comment on above: ADA recommended refe rence range Random Glucose Reference Range is dependent on time and content of last meal. Glucose of more than 200 mg/dL in a nonstressed, ambulatory subject supports the diagnosis of Diabetes Mellitus. Serum or plasma potassium me asurement (moles/volume)Ordered By: PROVIDER TEMP on 09-25-2021 Potassium [Moles/Vol] 3.9 mmol/L 3.5-5.1 [facility] Serum or plasma sodium measu rement (moles/volume)Ordered By: PROVIDER TEMP on 09-25-2021 Sodium [Moles/Vol] 137 mmol/L 136-146 [facility] Serum or plasma total biliru bin measurement (mass/volume)Ordered By: PROVIDER TEMP on 09-25-2021 Bilirubin [Mass/Vol] 0.3 mg/dL 0.3-1.2 [facility] Serum or plasma total carbon dioxide measurement (moles/volume)Ordered By: PROVIDER TEMP on 09-25-2021 CO2 [Moles/Vol] 26.3 mmol/L 22.0-30.0 [facility] Serum or plasma urea nitroge n measurement (mass/volume)Ordered By: PROVIDER TEMP on 09-25-2021 Urea nitrogen [Mass/Vol] 8 mg/dL 9- [facility] AMYLASEon 09-17-2021 Amylase [Catalytic activity/Vol] 142 U/L Critically high 25-115 [facility] Comment on above: Performed By: #### A MY, CMP, LIPA ####[facility] [address] [place], [place] [address]Dr. Keturah Phillip CBC AUTO DIFFon 09-17-2021 BASO # 0.1 103/ul Normal 0.0-0.1 [facility] Comment on above: Performed By: #### C BC ####[facility] [address] [place], [place] [address]Dr. Elisaeli Fisher Basophils/100 WBC (Bld) 0.7 % Normal 0.2-2.0 [facility] Comment on above: Performed By: #### C BC ####[facility] [address] [place], [place] [address]Dr. Elisaeli Fisher EO # 0.1 103/ul Normal 0.0-0.7 [facility] Comment on above: Performed By: #### C BC ####[facility] [address] [place], [place] [address]Dr. Elisaeli Fisher Eosinophils/100 WBC (Bld) 1.3 % Normal 0.9-7.0 [facility] Comment on above: Performed By: #### C BC ####[facility] [address] [place], [place] [address]Dr. Keturah Fisher Erythrocyte distribution width (RBC) [Ratio] 13.2 % Normal 11.0-15.0 [facility] Comment on above: Performed By: #### C BC ####[facility] [address] [place], [place] [address]Dr. Keturah Fisher Hematocrit (Bld) [Volume fraction] 43.7 % Normal 36.0-48.0 [facility] Comment on above: Performed By: #### C BC ####[facility] [address] [place], [place] [address]Dr. Keturah Fisher Hemoglobin (Bld) [Mass/Vol] 14.7 g/dL Normal 12.0-16.0 [facility] Comment on above: Performed By: #### C BC ####[facility] [address] [place], [place] [address]Dr. Keturah Fisher IG # 0.01 10e3/ul Normal 0.00-0.03 [facility] Comment on above: Performed By: #### C BC ####[facility] [address] [place], [place] [address]Dr. Elisaeli Fisher IG % 0.1 % Normal 0.0-0.5 [facility] Comment on above: Performed By: #### C BC ####[facility] [address] [place], [place] [address]Dr. Elisaeli Fisher LYMPH # 2.7 103/ul Normal 1.2-3.8 [facility] Comment on above: Performed By: #### C BC ####[facility] [address] [place], [place] [address]Dr. Elisaeli Fisher Lymphocytes/100 WBC (Bld) 30.1 % Normal 20.5-60.0 [facility] Comment on above: Performed By: #### C BC ####[facility] [address] [place], [place] [address]Dr. Keturah Fisher MANUAL DIFF REQ NO Normal [facility] Comment on above: Performed By: #### C BC ####[facility] [address] [place], [place] [address]Dr. Keturah Fisher MCH (RBC) [Entitic mass] 32.4 pg Normal 26.7-34.0 [facility] Comment on above: Performed By: #### C BC ####[facility] [address] [address]Dr. Keturah Fisher MCHC (RBC) [Mass/Vol] 33.6 g/dL Normal 29.9-35.2 [facility] Comment on above: Performed By: #### C BC ####[facility] [address] [place] [address]Dr. Keturah Phillip MCV (RBC) [Entitic vol] 96.3 fL Normal 81.0-99.0 [facility] Comment on above: Performed By: #### C BC ####[facility] [address] [place] [address]Dr. Keturah Phillip MONO # 0.8 103/ul Normal 0.3-0.8 [facility] Comment on above: Performed By: #### C BC ####[facility] [address] [place], [place] [address]Dr. Elisaeli Fisher Monocytes/100 WBC (Bld) 8.7 % Normal 1.7-12.0 [facility] Comment on above: Performed By: #### C BC ####[facility] [address] [place], [place] [address]Dr. Keturah Fisher NEUT # 5.4 103/ul Normal 1.4-6.5 [facility] Comment on above: Performed By: #### C BC ####[facility] [address] [place], [place] [address]Dr. Elisaeli Fisher Neutrophils/100 WBC (Bld) 59.1 % Normal 43.0-75.0 [facility] Comment on above: Performed By: #### C BC ####[facility] [address] [place] [address]Dr. Elisaeli Fisher Platelet mean volume (Bld) [Entitic vol] 9.6 fL Normal 9.5-13.5 [facility] Comment on above: Performed By: #### C BC ####[facility] [address] [place], [place] [address]Mj. Keturah Fisher PLT 272 103/ul Normal 150-450 [facility] Comment on above: Performed By: #### C BC ####[facility] [address] [place], [place] [address]Ys. Keturah Fisher RBC 4.54 106/ul Normal 4.20-5.40 [facility] Comment on above: Performed By: #### C BC ####[facility] [address] [place], [place] [address]Qu. Keturah Fisher WBC 9.1 103/ul Normal 4.0-11.0 [facility] Comment on above: Performed By: #### C BC ####[facility] [address] [place], [place] [address]Qf. Keturah Fisher ETHANOL (BLD ALC)on 09-18-19 22 ALC NOTE NOTE: 80 mg/dl is th e legal limit for a blood alcohol level Normal [facility] Comment on above: Performed By: #### L IPA, CMP, CRP, NAT #### [facility] [address] [address] [address] Keturah Fisher Ethanol [Mass/Vol] mg/dL Normal [facility] Comment on above: Performed By: #### L IPA, CMP, CRP, NAT #### [facility] [address] [address] [address] Keturah Fisher LIPASEon 09-17-2021 Lipase [Catalytic activity/Vol] 524.0 U/L Critically high 73.0-393.0 [facility] Comment on above: Performed By: #### C BC #### [facility] [address] [address] [address] Keturah Fisher PROF 14(COMP METB)on 022 Albumin [Mass/Vol] 3.9 g/dL Normal 3.4-5.0 [facility] Comment on above: Performed By: #### C BC #### [facility] [address] [address] [address] Keturah Fisher Albumin/Globulin [Mass ratio] 1.1 {ratio} Normal [facility] Comment on above: Performed By: #### C BC #### [facility] [address] [address] [address] Keturah Fisher ALP [Catalytic activity/Vol] 136 U/L Critically high 46-116 [facility] Comment on above: Performed By: #### C BC #### [facility] [address] [address] [address] Keturah Fisher ALT [Catalytic activity/Vol] 21 U/L Normal 14-59 [facility] Comment on above: Performed By: #### C BC #### [facility] [address] [address] [address] Keturah Fisher Anion gap [Moles/Vol] 12.7 mmol/L Normal Th e [facility] Comment on above: Performed By: #### C BC #### [facility] [address] [place] [address] Dr. Keturah Fisher AST [Catalytic activity/Vol] 16 U/L Normal 15-37 [facility] Comment on above: Performed By: #### C BC #### [facility] [address] [place] [address] Dr. Keturah Fisher Bilirubin [Mass/Vol] 0.2 mg/dL Normal 0.2-1.0 [facility] Comment on above: Performed By: #### C BC #### [facility] [address] [place] [address] Dr. Keturah Fisher Calcium [Mass/Vol] 9.9 mg/dL Normal 8.5-10.1 [facility] Comment on above: Performed By: #### C BC #### [facility] [address] [place] [address] Dr. Keturah Fisher Chloride [Moles/Vol] 106 mmol/L Normal 98-107 [facility] Comment on above: Performed By: #### C BC #### [facility] [address] [place] [address] Dr. Keturah Fisher CO2 [Moles/Vol] 25.9 mmol/L Normal 21.0-32.0 [facility] Comment on above: Performed By: #### C BC #### [facility] [address] [address] [address] Keturah Fisher Creatinine [Mass/Vol] 0.96 mg/dL Normal 0.55-1.02 [facility] Comment on above: Performed By: #### C BC #### [facility] [address] [address] [address] Keturah Fisher EGFR-AF CITIZEN OF [place] >60 Normal >=60 [facility] Comment on above: Performed By: #### C BC #### [facility] [address] [address] [address] Keturah Fisher EGFR-NON AF CITIZEN OF [place] >60 Normal >=60 [facility] Comment on above: Performed By: #### C BC #### [facility] [address] [place] [address] Dr. Keturah Fisher Globulin (S) [Mass/Vol] 3.5 g/dL Normal [facility] Comment on above: Performed By: #### C BC #### [facility] [address] [place] [address] Dr. Keturah Fisher Glucose [Mass/Vol] 113 mg/dL Critically high 74-106 [facility] Comment on above: Performed By: #### C BC #### [facility] [address] [place] [address] Dr. Keturah Fisher Potassium [Moles/Vol] 3.6 mmol/L Normal 3.5-5.1 [facility] Comment on above: Performed By: #### C BC #### [facility] [address] [place] [address] Dr. Keturah Fisher Protein [Mass/Vol] 7.4 g/dL Normal 6.4-8.2 [facility] Comment on above: Performed By: #### C BC #### [facility] [address] [place] [address] Dr. Keturah Fisher Sodium [Moles/Vol] 141 mmol/L Normal 136-145 [facility] Comment on above: Performed By: #### C BC #### [facility] [address] [place] [address] Dr. Keturah Fisher Urea nitrogen [Mass/Vol] 8.0 mg/dL Normal 7.0-18.0 [facility] Comment on above: Performed By: #### C BC #### [facility] [address] [address] [address] Keturah Fisher Urea nitrogen/Creatinine [Mass ratio] 8.3 mg/mg Normal [facility] Comment on above: Performed By: #### C BC #### [facility] [address] [address] [address] Keturah Fisher AMYLASEon 08-26-2021 Amylase [Catalytic activity/Vol] 94 U/L Normal 25-115 [facility] Comment on above: Performed By: #### A MY, CMP, LIPA ####[facility] [address] [place] [address]Dr. Keturah Fisher CBC AUTO DIFFon 08-26-2021 BASO # 0.1 103/ul Normal 0.0-0.1 [facility] Comment on above: Performed By: #### L IPA, CMP, CRP, NAT #### [facility] [address] [address] [address] Keturah Fisher Basophils/100 WBC (Bld) 0.7 % Normal 0.2-2.0 [facility] Comment on above: Performed By: #### L IPA, CMP, CRP, NAT #### [facility] [address] [place] [address] Dr. Keturah Fisher EO # 0.2 103/ul Normal 0.0-0.7 [facility] Comment on above: Performed By: #### L IPA, CMP, CRP, NAT #### [facility] [address] [address] [address] Keturah Fisher Eosinophils/100 WBC (Bld) 2.5 % Normal 0.9-7.0 [facility] Comment on above: Performed By: #### L IPA, CMP, CRP, NAT #### [facility] [address] [address] [address] Keturah Fisher Erythrocyte distribution width (RBC) [Ratio] 13.1 % Normal 11.0-15.0 [facility] Comment on above: Performed By: #### L IPA, CMP, CRP, NAT #### [facility] [address] [place] [address] Dr. Keturah Fisher Hematocrit (Bld) [Volume fraction] 42.4 % Normal 36.0-48.0 [facility] Comment on above: Performed By: #### L IPA, CMP, CRP, NAT #### [facility] [address] [place] [address] Dr. Keturah Fisher Hemoglobin (Bld) [Mass/Vol] 14.1 g/dL Normal 12.0-16.0 [facility] Comment on above: Performed By: #### L IPA, CMP, CRP, NAT #### [facility] [address] [place] [address] Dr. Keturah Fisher IG # 0.03 10e3/ul Normal 0.00-0.03 [facility] Comment on above: Performed By: #### L IPA, CMP, CRP, NAT #### [facility] [address] [place] [address] Dr. Keturah Fisher IG % 0.3 % Normal 0.0-0.5 [facility] Comment on above: Performed By: #### L IPA, CMP, CRP, NAT #### [facility] [address] [place] [address] Dr. Keturah Fisher LYMPH # 2.6 103/ul Normal 1.2-3.8 [facility] Comment on above: Performed By: #### L IPA, CMP, CRP, NAT #### [facility] [address] [place] [address] Dr. Keturah Fisher Lymphocytes/100 WBC (Bld) 27.7 % Normal 20.5-60.0 [facility] Comment on above: Performed By: #### L IPA, CMP, CRP, NAT #### [facility] [address] [place] [address] Dr. Keturah Fisher MANUAL DIFF REQ NO Normal [facility] Comment on above: Performed By: #### L IPA, CMP, CRP, NAT #### [facility] [address] [place] [address] Dr. Keturah Fisher MCH (RBC) [Entitic mass] 32.6 pg Normal 26.7-34.0 [facility] Comment on above: Performed By: #### L IPA, CMP, CRP, NAT #### [facility] [address] [place] [address] Dr. Keturah Fisher MCHC (RBC) [Mass/Vol] 33.3 g/dL Normal 29.9-35.2 [facility] Comment on above: Performed By: #### L IPA, CMP, CRP, NAT #### [facility] [address] [place] [address] Dr. Keturah Fisher MCV (RBC) [Entitic vol] 97.9 fL Normal 81.0-99.0 [facility] Comment on above: Performed By: #### L IPA, CMP, CRP, NAT #### [facility] [address] [place] [address] Dr. Keturah Fisher MONO # 1.2 103/ul Critically high 0.3-0.[address] [facility] Comment on above: Performed By: #### L IPA, CMP, CRP, NAT #### [facility] [address] [place] [address] Dr. Keturah Fisher Monocytes/100 WBC (Bld) 12.9 % Critically high 1.7-12.0 [facility] Comment on above: Performed By: #### L IPA, CMP, CRP, NAT #### [facility] [address] [place] [address] Dr. Keturah Fisher NEUT # 5.3 103/ul Normal 1.4-6.5 [facility] Comment on above: Performed By: #### L IPA, CMP, CRP, NAT #### [facility] [address] [place] [address] Dr. Keturah Fisher Neutrophils/100 WBC (Bld) 55.9 % Normal 43.0-75.0 [facility] Comment on above: Performed By: #### L IPA, CMP, CRP, NAT #### [facility] [address] [place] [address] Dr. Keturah Fisher Platelet mean volume (Bld) [Entitic vol] 9.8 fL Normal 9.5-13.5 [facility] Comment on above: Performed By: #### L IPA, CMP, CRP, NAT #### [facility] [address] [address] [address] Keturah Fisher PLT 229 103/ul Normal 150-450 [facility] Comment on above: Performed By: #### L IPA, CMP, CRP, NAT #### [facility] [address] [address] [address] Keturah Fisher RBC 4.33 106/ul Normal 4.20-5.40 [facility] Comment on above: Performed By: #### L IPA, CMP, CRP, NAT #### [facility] [address] [address] [address] Keturah Fisher WBC 9.5 103/ul Normal 4.0-11.0 [facility] Comment on above: Performed By: #### L IPA, CMP, CRP, NAT #### [facility] [address] [address] [address] Keturah Fisher LIPASEon 08-26-2021 Lipase [Catalytic activity/Vol] 146.0 U/L Normal 73.0-393.0 [facility] Comment on above: Performed By: #### A MY, CMP, LIPA ####[facility] [address] [place] [address]Dr. Keturah Fisher PROF 14(COMP METB)on 022 Albumin [Mass/Vol] 3.5 g/dL Normal 3.4-5.0 [facility] Comment on above: Performed By: #### A MY, CMP, LIPA ####[facility] [address] [place] [address]Dr. Keturah Fisher Albumin/Globulin [Mass ratio] 1.1 {ratio} Normal [facility] Comment on above: Performed By: #### A MY, CMP, LIPA ####[facility] [address] [address]Dr. Keturah Fisher ALP [Catalytic activity/Vol] 139 U/L Critically high 46-116 [facility] Comment on above: Performed By: #### A MY, CMP, LIPA ####[facility] [address] [place] [place] [address]Dr. Keturah Fisher ALT [Catalytic activity/Vol] 21 U/L Normal 14-59 [facility] Comment on above: Performed By: #### A MY, CMP, LIPA ####[facility] [address] [address]Dr. Keturah Fisher Anion gap [Moles/Vol] 11.4 mmol/L Normal Th [facility] Comment on above: Performed By: #### A MY, CMP, LIPA ####[facility] [address] [place] [address]Dr. Keturah Fisher AST [Catalytic activity/Vol] 21 U/L Normal 15-37 [facility] Comment on above: Performed By: #### A MY, CMP, LIPA ####[facility] [address] [place], [place] [address]Dr. Keturah Fisher Bilirubin [Mass/Vol] 0.2 mg/dL Normal 0.2-1.0 [facility] Comment on above: Performed By: #### A MY, CMP, LIPA ####[facility] [address] [place], [place] [address]Dr. Keturah Fisher Calcium [Mass/Vol] 9.2 mg/dL Normal 8.5-10.1 [facility] Comment on above: Performed By: #### A MY, CMP, LIPA ####[facility] [address] [address]Dr. Keturah Fisher Chloride [Moles/Vol] 107 mmol/L Normal 98-107 [facility] Comment on above: Performed By: #### A MY, CMP, LIPA ####[facility] [address] [place], [place] [address]Dr. Keturah Fisher CO2 [Moles/Vol] 27.9 mmol/L Normal 21.0-32.0 [facility] Comment on above: Performed By: #### A MY, CMP, LIPA ####[facility] [address] [place], [place] [address]Dr. Keturah Fisher Creatinine [Mass/Vol] 0.84 mg/dL Normal 0.55-1.02 [facility] Comment on above: Performed By: #### A MY, CMP, LIPA ####[facility] [address] [place] [address]Dr. Keturah Fisher EGFR-AF CITIZEN OF [place] >60 Normal >=60 The [facility] Comment on above: Performed By: #### A MY, CMP, LIPA ####[facility] [address] [place] [address]Dr. Keturah Fisher EGFR-NON AF CITIZEN OF [place] >60 Normal >=60 [facility] Comment on above: Performed By: #### A MY, CMP, LIPA ####[facility] [address] [place] [address]Dr. Keturah Fisher Globulin (S) [Mass/Vol] 3.3 g/dL Normal [facility] Comment on above: Performed By: #### A MY, CMP, LIPA ####[facility] [address] [place] [address]Dr. Keturah Fisher Glucose [Mass/Vol] 106 mg/dL Normal 74-106 The [facility] Comment on above: Performed By: #### A MY, CMP, LIPA ####[facility] [address] [place] [address]Dr. Keturah Fisher Potassium [Moles/Vol] 4.3 mmol/L Normal 3.5-5.1 [facility] Comment on above: Performed By: #### A MY, CMP, LIPA ####[facility] [address] [place] [address]Dr. Keturah Fisher Protein [Mass/Vol] 6.8 g/dL Normal 6.4-8.2 The [facility] Comment on above: Performed By: #### A MY, CMP, LIPA ####[facility] [address] [place] [address]Dr. Keturah Fisher Sodium [Moles/Vol] 142 mmol/L Normal 136-145 The [facility] Comment on above: Performed By: #### A MY, CMP, LIPA ####[facility] [address] [place], [place] [address]Lo. Keturah Fisher Urea nitrogen [Mass/Vol] 11.0 mg/dL Normal 7.0-18.0 [facility] Comment on above: Performed By: #### A MY, CMP, LIPA ####[facility] [address] [place], [place] [address]Rb. Keturah Fisher Urea nitrogen/Creatinine [Mass ratio] 13.1 mg/mg Normal [facility] Comment on above: Performed By: #### A MY, CMP, LIPA ####[facility] [address] [place], [place] [address]Ga. Keturah Fisher XR ABD FLAT UP_PA Jorje [...] MILADIS BARRERA Date: 2021-08-26 04:59 Normal [facility] AMYLASEon 08-22-2021 Amylase [Catalytic activity/Vol] 155 U/L Critically high 25-115 [facility] Comment on above: Performed By: #### C MP, NAT, LIPA #### [facility] [address] [place], [place] [address] Dr. Keturah Fisher CBC AUTO DIFFon 08-22-2021 BASO # 0.1 103/ul Normal 0.0-0.1 [facility] Comment on above: Performed By: #### L IPA, CMP, CRP, NAT #### [facility] [address] [place] [address] Dr. Keturah Fisher Basophils/100 WBC (Bld) 0.7 % Normal 0.2-2.0 [facility] Comment on above: Performed By: #### L IPA, CMP, CRP, NAT #### [facility] [address] [place] [address] Dr. Keturah Fisher EO # 0.1 103/ul Normal 0.0-0.7 [facility] Comment on above: Performed By: #### L IPA, CMP, CRP, NAT #### [facility] [address] [place] [address] Dr. Keturah Fisher Eosinophils/100 WBC (Bld) 0.7 % Critically low 0.9-7.0 [facility] Comment on above: Performed By: #### L IPA, CMP, CRP, NAT #### [facility] [address] [place] [address] Dr. Keturah Fisher Erythrocyte distribution width (RBC) [Ratio] 13.2 % Normal 11.0-15.0 [facility] Comment on above: Performed By: #### L IPA, CMP, CRP, NAT #### [facility] [address] [place] [address] Dr. Keturah Fisher Hematocrit (Bld) [Volume fraction] 41.1 % Normal 36.0-48.0 [facility] Comment on above: Performed By: #### L IPA, CMP, CRP, NAT #### [facility] [address] [place] [address] Dr. Keturah Fisher Hemoglobin (Bld) [Mass/Vol] 13.8 g/dL Normal 12.0-16.0 [facility] Comment on above: Performed By: #### L IPA, CMP, CRP, NAT #### [facility] [address] [place] [address] Dr. Keturah Fisher IG # 0.03 10e3/ul Normal 0.00-0.03 [facility] Comment on above: Performed By: #### L IPA, CMP, CRP, NAT #### [facility] [address] [place] [address] Dr. Keturah Fisher IG % 0.2 % Normal 0.0-0.5 [facility] Comment on above: Performed By: #### L IPA, CMP, CRP, NAT #### [facility] [address] [place] [address] [address] Keturah Fisher LYMPH # 2.6 103/ul Normal 1.2-3.8 [facility] Comment on above: Performed By: #### L IPA, CMP, CRP, NAT #### [facility] [address] [place] [address] Dr. Keturah Fisher Lymphocytes/100 WBC (Bld) 21.4 % Normal 20.5-60.0 [facility] Comment on above: Performed By: #### L IPA, CMP, CRP, NAT #### [facility] [address] [place] [address] Dr. Keturah Fisher MANUAL DIFF REQ NO Normal [facility] Comment on above: Performed By: #### L IPA, CMP, CRP, NAT #### [facility] [address] [place] [address] Dr. Keturah Fisher MCH (RBC) [Entitic mass] 32.2 pg Normal 26.7-34.0 [facility] Comment on above: Performed By: #### L IPA, CMP, CRP, NAT #### [facility] [address] [place] [address] Dr. Keturah Fisher MCHC (RBC) [Mass/Vol] 33.6 g/dL Normal 29.9-35.2 [facility] Comment on above: Performed By: #### L IPA, CMP, CRP, NAT #### [facility] [address] [place] [address] Dr. Keturah Fisher MCV (RBC) [Entitic vol] 95.8 fL Normal 81.0-99.0 [facility] Comment on above: Performed By: #### L IPA, CMP, CRP, NAT #### [facility] [address] [place] [address] Dr. Keturah Fisher MONO # 0.9 103/ul Critically high 0.3-0.[address] [facility] Comment on above: Performed By: #### L IPA, CMP, CRP, NAT #### [facility] [address] [place] [address] Dr. Keturah Fisher Monocytes/100 WBC (Bld) 7.6 % Normal 1.7-12.0 [facility] Comment on above: Performed By: #### L IPA, CMP, CRP, NAT #### [facility] [address] [place] [address] Dr. Keturah Fisher NEUT # 8.5 103/ul Critically high 1.4-6.[address] [facility] Comment on above: Performed By: #### L IPA, CMP, CRP, NAT #### [facility] [address] [place] [address] Dr. Keturah Fisher Neutrophils/100 WBC (Bld) 69.4 % Normal 43.0-75.0 [facility] Comment on above: Performed By: #### L IPA, CMP, CRP, NAT #### [facility] [address] [place] [address] Dr. Keturah Fisher Platelet mean volume (Bld) [Entitic vol] 9.5 fL Normal 9.5-13.5 [facility] Comment on above: Performed By: #### L IPA, CMP, CRP, NAT #### [facility] [address] [place] [address] Dr. Keturah Fisher PLT 261 103/ul Normal 150-450 [facility] Comment on above: Performed By: #### L IPA, CMP, CRP, NAT #### [facility] [address] [place] [address] Dr. Keturah Fisher RBC 4.29 106/ul Normal 4.20-5.40 [facility] Comment on above: Performed By: #### L IPA, CMP, CRP, NAT #### [facility] [address] [place] [address] Dr. Keturah Fisher WBC 12.2 103/ul Critically high 4.0-11.0 [facility] Comment on above: Performed By: #### L IPA, CMP, CRP, NAT #### [facility] [address] [place] [address] Dr. Keturah Fisher LIPASEon 08-22-2021 Lipase [Catalytic activity/Vol] 419.0 U/L Critically high 73.0-393.0 [facility] Comment on above: Performed By: #### C MP, NAT, LIPA #### [facility] [address] [place] [address] Dr. Keturah Fisher PROF 14(COMP METB)on 022 Albumin [Mass/Vol] 3.9 g/dL Normal 3.4-5.0 [facility] Comment on above: Performed By: #### C MP, NAT, LIPA #### [facility] [address] [place] [address] Dr. Keturah Fisher Albumin/Globulin [Mass ratio] 1.2 {ratio} Normal [facility] Comment on above: Performed By: #### C MP, NTA, LIPA #### [facility] [address] [place] [address] Dr. Keturah Fisher ALP [Catalytic activity/Vol] 137 U/L Critically high 46-116 [facility] Comment on above: Performed By: #### C MP, NAT, LIPA #### [facility] [address] [place] [address] Dr. Keturah Fisher ALT [Catalytic activity/Vol] 22 U/L Normal 14-59 [facility] Comment on above: Performed By: #### C MP, NAT, LIPA #### [facility] [address] [place] [address] Dr. Keturah Fisher Anion gap [Moles/Vol] 12.9 mmol/L Normal [facility] Comment on above: Performed By: #### C MP, NAT, LIPA #### [facility] [address] [place] [address] Dr. Keturah Fisher AST [Catalytic activity/Vol] 20 U/L Normal 15-37 [facility] Comment on above: Performed By: #### C MP, NAT, LIPA #### [facility] [address] [place] [address] Dr. Keturah Fisher Bilirubin [Mass/Vol] 0.2 mg/dL Normal 0.2-1.0 [facility] Comment on above: Performed By: #### C NAT MEDEL LIPA #### [facility] [address] [address] [address] Keturah Fisher Calcium [Mass/Vol] 9.5 mg/dL Normal 8.5-10.1 [facility] Comment on above: Performed By: #### C NAT MEDEL LIPA #### [facility] [address] [address] [address] Keturah Fisher Chloride [Moles/Vol] 104 mmol/L Normal 98-107 [facility] Comment on above: Performed By: #### C NAT MEDEL LIPA #### [facility] [address] [place] [address] Dr. Keturah Fisher CO2 [Moles/Vol] 23.7 mmol/L Normal 21.0-32.0 [facility] Comment on above: Performed By: #### C NAT MEDEL LIPA #### [facility] [address] [place] [address] Dr. Keturah Fisher Creatinine [Mass/Vol] 0.85 mg/dL Normal 0.55-1.02 [facility] Comment on above: Performed By: #### C NAT MEDEL LIPA #### [facility] [address] [place] [address] Dr. Keturah Fisher EGFR-AF CITIZEN OF [place] >60 Normal >=60 [facility] Comment on above: Performed By: #### C NAT MEDEL LIPA #### [facility] [address] [place] [address] Dr. Keturah Fisher EGFR-NON AF CITIZEN OF [place] >60 Normal >=60 [facility] Comment on above: Performed By: #### C NAT MEDEL LIPA #### [facility] [address] [place] [address] Dr. Keturah Fisher Globulin (S) [Mass/Vol] 3.3 g/dL Normal [facility] Comment on above: Performed By: #### C NAT MEDEL LIPA #### [facility] [address] [address] [address] Keturah Fisher Glucose [Mass/Vol] 130 mg/dL Critically high 74-106 [facility] Comment on above: Performed By: #### C NAT MEDEL, LIPA #### [facility] [address] [place] [address] [address] Keturah Fisher Potassium [Moles/Vol] 3.6 mmol/L Normal 3.5-5.1 [facility] Comment on above: Performed By: #### C LIZY NAT, LIPA #### [facility] [address] [address] [address] Keturah Fisher Protein [Mass/Vol] 7.2 g/dL Normal 6.4-8.2 [facility] Comment on above: Performed By: #### C LIZY NAT, LIPA #### [facility] [address] [address] [address] Keturah Fisher Sodium [Moles/Vol] 137 mmol/L Normal 136-145 [facility] Comment on above: Performed By: #### C LIZY NAT, LIPA #### [facility] [address] [address] [address] Keturah Fisher Urea nitrogen [Mass/Vol] 9.0 mg/dL Normal 7.0-18.0 [facility] Comment on above: Performed By: #### C LIZY NAT, LIPA #### [facility] [address] [address] [address] Keturha Fisher Urea nitrogen/Creatinine [Mass ratio] 10.6 mg/mg Normal [facility] Comment on above: Performed By: #### C LIZY NAT, LIPA #### [facility] [address] [address] [address] Keturah Fisher XR ABD FLAT UP_PA [...] TRI HANSON Date: 2021-08-22 14:54 Normal [facility] CBC AUTO DIFFon 08-13-2021 BASO # 0.1 103/ul Normal 0.0-0.1 [facility] Comment on above: Performed By: #### C BC ####[facility] [address] [place] [address]Dr. Keturah Fisher Basophils/100 WBC (Bld) 0.6 % Normal 0.2-2.0 [facility] Comment on above: Performed By: #### C BC ####[facility] [address] [place], [place] [address]Dr. Keturah Fisher EO # 0.1 103/ul Normal 0.0-0.7 [facility] Comment on above: Performed By: #### C BC ####[facility] [address] [place] [address]Dr. Keturah Fisher Eosinophils/100 WBC (Bld) 1.1 % Normal 0.9-7.0 [facility] Comment on above: Performed By: #### C BC ####[facility] [address] [place], [place] [address]Dr. Keturah Fisher Erythrocyte distribution width (RBC) [Ratio] 12.6 % Normal 11.0-15.0 [facility] Comment on above: Performed By: #### C BC ####[facility] [address] [place], [place] [address]Dr. Keturah Fisher Hematocrit (Bld) [Volume fraction] 42.3 % Normal 36.0-48.0 [facility] Comment on above: Performed By: #### C BC ####[facility] [address] [place], [place] [address]Dr. Keturah Fisher Hemoglobin (Bld) [Mass/Vol] 14.1 g/dL Normal 12.0-16.0 [facility] Comment on above: Performed By: #### C BC ####[facility] [address] [place] [address]Dr. Keturah Fisher IG # 0.03 10e3/ul Normal 0.00-0.03 [facility] Comment on above: Performed By: #### C BC ####[facility] [address] [place] [address]Dr. Keturah Fisher IG % 0.3 % Normal 0.0-0.5 [facility] Comment on above: Performed By: #### C BC ####[facility] [address] [place] [address]Dr. Keturah Fisher LYMPH # 2.4 103/ul Normal 1.2-3.8 [facility] Comment on above: Performed By: #### C BC ####[facility] [address] [place] [address]Dr. Keturah Fisher Lymphocytes/100 WBC (Bld) 22.3 % Normal 20.5-60.0 [facility] Comment on above: Performed By: #### C BC ####[facility] [address] [place] [address]Dr. Keturah Fisher MANUAL DIFF REQ NO Normal [facility] Comment on above: Performed By: #### C BC ####[facility] [address] [place] [address]Dr. Keturah Fisher MCH (RBC) [Entitic mass] 32.5 pg Normal 26.7-34.0 [facility] Comment on above: Performed By: #### C BC ####[facility] [address] [place], [place] [address]Dr. Keturah Fisher MCHC (RBC) [Mass/Vol] 33.3 g/dL Normal 29.9-35.2 [facility] Comment on above: Performed By: #### C BC ####[facility] [address] [place] [address]Dr. Keturah Fisher MCV (RBC) [Entitic vol] 97.5 fL Normal 81.0-99.0 [facility] Comment on above: Performed By: #### C BC ####[facility] [address] [place] [address]Dr. Keturah Fisher MONO # 1.0 103/ul Critically high 0.3-0.[address] [facility] Comment on above: Performed By: #### C BC ####[facility] [address] [place] [address]Dr. Keturah Fisher Monocytes/100 WBC (Bld) 8.7 % Normal 1.7-12.0 [facility] Comment on above: Performed By: #### C BC ####[facility] [address] [place] [id number]. Keturah Fisher NEUT # 7.3 103/ul Critically high 1.4-6.[address] [facility] Comment on above: Performed By: #### C BC ####[facility] [address] [place] [address]Dr. Keturah Fisher Neutrophils/100 WBC (Bld) 67.0 % Normal 43.0-75.0 [facility] Comment on above: Performed By: #### C BC ####[facility] [address] [place] [address]Dr. Keturah Fisher Platelet mean volume (Bld) [Entitic vol] 9.5 fL Normal 9.5-13.5 [facility] Comment on above: Performed By: #### C BC ####[facility] [address] [place] [id number]. Keturah Fisher PLT 272 103/ul Normal 150-450 [facility] Comment on above: Performed By: #### C BC ####[facility] [address] [place], [place] [address]Dr. Keturah Fisher RBC 4.34 106/ul Normal 4.20-5.40 [facility] Comment on above: Performed By: #### C BC ####[facility] [address] [place] [id number]. Keturah Fisher WBC 10.9 103/ul Normal 4.0-11.0 [facility] Comment on above: Performed By: #### C BC ####[facility] [address] [place], [place] [address] CT ABD/PELV W CONon 08-14-19 [...] findings, as detailed above. Electronically authenticated by: HEBERTMadison MCPHERSON Date: 2021-08-13 17:14 Normal [facility] ER URINE PROFILEon 2 Bilirubin Ql (U) Negative Normal NEGATIVE [facility] Comment on above: Performed By: #### C BC #### [facility] [address] [place] [address] Dr. Keturah Fisher Clarity (U) CLEAR Normal CLEAR [facility] Comment on above: Performed By: #### C BC #### [facility] [address] [place] [address] Dr. Keturah Fisher Color (U) LT. YELLOW Normal YELLOW [facility] Comment on above: Performed By: #### C BC #### [facility] [address] [place] [address] Dr. Keturah BAH A micrscopic examination will be performed if indicated. Normal [facility] Comment on above: Performed By: #### C BC #### [facility] [address] [place] [address] Dr. Keturah Fisher Glucose Ql (U) Negative Normal NEGATIVE [facility] Comment on above: Performed By: #### C BC #### [facility] [address] [place] [address] Dr. Keturah Fisher Hemoglobin Ql (U) Negative Normal NEGATIVE [facility] Comment on above: Performed By: #### C BC #### [facility] [address] [place] [address] Dr. Keturah Fisher Ketones Ql (U) Negative Normal NEGATIVE [facility] Comment on above: Performed By: #### C BC #### [facility] [address] [place] [address] Dr. Keturah Fisher LEUKOCYTES Negative Normal NEGATIVE [facility] Comment on above: Performed By: #### C BC #### [facility] [address] [place] [address] Dr. Keturah Fisher Nitrite Ql (U) Negative Normal NEGATIVE [facility] Comment on above: Performed By: #### C BC #### [facility] [address] [place] [address] Dr. Keturah Fisher pH (U) 5.5 [pH] Normal 5-9 [facility] Comment on above: Performed By: #### C BC #### [facility] [address] [place] [address] Dr. Keturah Fisher SPEC GRAVITY 1.010 Normal 1.005-<=1.0 25 [facility] Comment on above: Performed By: #### C BC #### [facility] [address] [place] [address] Dr. Keturah Fisher UA PROTEIN Negative Normal NEGATIVE/ TRACE [facility] Comment on above: Performed By: #### C BC #### [facility] [address] [place] [address] Dr. Keturah Fisher UR MICRO IND NOT INDICATED Normal [facility] Comment on above: Performed By: #### C BC #### [facility] [address] [place] [address] Dr. Keturah Fisher Urobilinogen Qn (U) 0.2 {Marizol'U}/dL Normal 0.2 - 1. 0 [facility] Comment on above: Performed By: #### C BC #### [facility] [address] [place] [address] Dr. Keturah Fisher LIPASEon 08-13-2021 Lipase [Catalytic activity/Vol] 217.0 U/L Normal 73.0-393.0 [facility] Comment on above: Performed By: #### C BC #### [facility] [address] [place] [address] Dr. Keturah Fisher PROF 14(COMP METB)on 022 Albumin [Mass/Vol] 3.9 g/dL Normal 3.4-5.0 [facility] Comment on above: Performed By: #### C BC #### [facility] [address] [place] [address] Dr. Keturah Fisher Albumin/Globulin [Mass ratio] 1.1 {ratio} Normal [facility] Comment on above: Performed By: #### C BC #### [facility] [facility] [address] [address] [address] Keturah Fisher ALP [Catalytic activity/Vol] 140 U/L Critically high 46-116 [facility] [place] Comment on above: Performed By: #### C BC #### [facility] [address] [address] [address] Keturah Fisher ALT [Catalytic activity/Vol] 24 U/L Normal 14-59 [facility] [place] Comment on above: Performed By: #### C BC #### [facility] [address] [place] [address] Dr. Keturah Fisher Anion gap [Moles/Vol] 11.7 mmol/L Normal [facility] Comment on above: Performed By: #### C BC #### [facility] [address] [place] [address] Dr. Keturah Fisher AST [Catalytic activity/Vol] 19 U/L Normal 15-37 [facility] [place] Comment on above: Performed By: #### C BC #### [facility] [address] [place] [address] Dr. Keturah Fisher Bilirubin [Mass/Vol] 0.2 mg/dL Normal 0.2-1.0 [facility] [place] Comment on above: Performed By: #### C BC #### [facility] [address] [place] [address] Dr. Keturah Fisher Calcium [Mass/Vol] 9.9 mg/dL Normal 8.5-10.1 [facility] Comment on above: Performed By: #### C BC #### [facility] [address] [place] [address] Dr. Keturah Fisher Chloride [Moles/Vol] 105 mmol/L Normal 98-107 [facility] [place] Comment on above: Performed By: #### C BC #### [facility] [address] [place] [address] Dr. Keturah Fisher CO2 [Moles/Vol] 29.1 mmol/L Normal 21.0-32.0 [facility] Comment on above: Performed By: #### C BC #### [facility] [address] [place] [address] Dr. Keturah Fisher Creatinine [Mass/Vol] 0.81 mg/dL Normal 0.55-1.02 [facility] Comment on above: Performed By: #### C BC #### [facility] [address] [place] [address] Dr. Keturah Fisher EGFR-AF CITIZEN OF [place] >60 Normal >=60 [facility] Comment on above: Performed By: #### C BC #### [facility] [address] [address] [address] Keturah Fisher EGFR-NON AF CITIZEN OF [place] >60 Normal >=60 [facility] [place] Comment on above: Performed By: #### C BC #### [facility] [address] [place] [address] Dr. Keturah Fisher Globulin (S) [Mass/Vol] 3.4 g/dL Normal [facility] [place] Comment on above: Performed By: #### C BC #### [facility] [address] [place] [address] Dr. Keturah Fisher Glucose [Mass/Vol] 87 mg/dL Normal 74-106 [facility] Comment on above: Performed By: #### C BC #### [facility] [address] [place] [address] Dr. Keturah Fisher Potassium [Moles/Vol] 3.8 mmol/L Normal 3.5-5.1 [facility] Comment on above: Performed By: #### C BC #### [facility] [address] [place] [address] Dr. Keturah Fisher Protein [Mass/Vol] 7.3 g/dL Normal 6.4-8.2 [facility] Comment on above: Performed By: #### C BC #### [facility] [address] [place] [address] Dr. Keturah Fisher Sodium [Moles/Vol] 142 mmol/L Normal 136-145 [facility] Comment on above: Performed By: #### C BC #### [facility] [address] [place] [address] Dr. Keturah Fisher Urea nitrogen [Mass/Vol] 11.0 mg/dL Normal 7.0-18.0 [facility] [place] Comment on above: Performed By: #### C BC #### [facility] [address] [place], [place] [address] Dr. Keturah Fisher Urea nitrogen/Creatinine [Mass ratio] 13.6 mg/mg Normal [facility] [place] Comment on above: Performed By: #### C BC #### [facility] [address] [place], [place] [address] Dr. Keturah Fisher Albumin [Mass/volume] in Ser um or PlasmaOrdered By: Keaton Barnard on 08-11-2021 Albumin [Mass/Vol] 3.4 g/dL 3.2-5.5 [facility] Basophils Auto (Bld) [#/Vol] Ordered By: Keaton Barnard on 08-11-2021 Basophils (Bld) [#/Vol] 0.1 10*3/uL 0.0-0.2 [facility] Basophils/100 WBC Auto (Bld) Ordered By: Keaton Barnard on 08-11-2021 Basophils/100 WBC (Bld) 0.9 % . [facility] Bilirubin Test strip Ql (U)O rdered By: Keaton Barnard on 08-11-2021 Bilirubin Ql (U) Negative Negative [facility] Blood hemoglobin measurement (mass/volume)Ordered By: Keaton Barnard on 08-11-2021 Hemoglobin (Bld) [Mass/Vol] 14.1 g/dL 11.8-15.4 [facility] Blood leukocytes automated c ount (number/volume)Ordered By: Keaton Barnard on 08-11-2021 WBC (Bld) [#/Vol] 9.7 10*3/uL 4.5-11.0 [facility] Color Auto (U)Ordered By: Herminia Barnard on 08-11-2021 Color (U) Yellow Yellow [facility] Creatinine and Glomerular fi ltration rate.predicted panel (S/P/Bld)Ordered By: Keaton Barnard on 08-11-2021 Creatinine [Mass/Vol] 0.95 mg/dL 0.44-1.03 [facility] Direct bilirubin measurement Ordered By: Keaton Barnard on 08-11-2021 Bilirubin.direct [Mass/Vol] mg/dL 0.0-0.4 [facility] Eosinophils Auto (Bld) [#/Vo l]Ordered By: Keaton Barnard on 08-11-2021 Eosinophils (Bld) [#/Vol] 0.1 10*3/uL 0.0-0.45 [facility] Eosinophils/100 WBC Auto (Bl d)Ordered By: Keaton Barnard on 08-11-2021 Eosinophils/100 WBC (Bld) 1.3 % . [facility] Erythrocyte distribution wid th Auto (RBC) [Ratio]Ordered By: Keaton Barnard on 08-11-2021 Erythrocyte distribution width (RBC) [Ratio] 13.2 % 11.9-15.3 [facility] Estimated glomerular filtrat ion rate (GFR) non- AmericanOrdered By: Keaton Barnard on 08-11-2021 GFR/1.73 sq M.predicted among non-blacks MDRD (S/P/Bld) [Vol rate/Area] > 60 mL/Min [facility] Globulin Calc (S) [Mass/Vol] Ordered By: Keaton Barnard on 08-11-2021 Globulin (S) [Mass/Vol] 2.6 g/dL [facility] Hematocrit Auto (Bld) [Volum e fraction]Ordered By: Keaton Barnard on 08-11-2021 Hematocrit (Bld) [Volume fraction] 42.1 % 34.0-46.4 [facility] Ketones Auto test strip (U) [Mass/Vol]Ordered By: Keaton Barnard on 08-11-2021 Ketones (U) [Mass/Vol] Negative Negative [facility] - Chemistry and C hemistry - challengeOrdered By: Keaton Barnard on 08-11-2021 Lipase [Catalytic activity/Vol] 89.0 U/L 22-51 [facility] - CoagulationOrde red By: Keaton Barnard on 08-11-2021 PT Coag (PPP) [Time] 12.5 s 9.0-12.9 [facility] - Hematology and Cell countsOrdered By: Keaton Barnard on 08-11-2021 Nucleated RBC/100 WBC (Bld) [Ratio] 0.1 % 0-0.5 [facility] Lymphocytes Auto (Bld) [#/Vo l]Ordered By: Keaton Barnard on 08-11-2021 Lymphocytes (Bld) [#/Vol] 2.5 10*3/uL 1.00-4.8 [facility] Lymphocytes/100 WBC Auto (Bl d)Ordered By: Keaton Barnard on 08-11-2021 Lymphocytes/100 WBC (Bld) 25.8 % . [facility] MCH Auto (RBC) [Entitic mass ]Ordered By: Keaton Barnard on 08-11-2021 MCH (RBC) [Entitic mass] 32.4 pg 24.7-34.3 [facility] MCHC Auto (RBC) [Mass/Vol]Or dered By: Keaton Barnard on 08-11-2021 MCHC (RBC) [Mass/Vol] 33.4 g/dL 32.0-35.0 [facility] MCV Auto (RBC) [Entitic vol] Ordered By: Keaton Barnard on 08-11-2021 MCV (RBC) [Entitic vol] 96.8 fL 80-100 [facility] Monocytes Auto (Bld) [#/Vol] Ordered By: Keaton Barnard on 08-11-2021 Monocytes (Bld) [#/Vol] 0.8 10*3/uL 0.0-0.8 [facility] Monocytes/100 WBC Auto (Bld) Ordered By: Keaton Barnard on 08-11-2021 Monocytes/100 WBC (Bld) 8.7 % . [facility] Neutrophils Auto (Bld) [#/Vo l]Ordered By: Keaton Barnard on 08-11-2021 Neutrophils (Bld) [#/Vol] 6.1 10*3/uL 1.8-7.7 [facility] Neutrophils/100 WBC Auto (Bl d)Ordered By: Keaton Barnard on 08-11-2021 Neutrophils/100 WBC (Bld) 63.3 % . [facility] Nitrite Test strip Ql (U)Ord ered By: Keaton Barnard on 08-11-2021 Nitrite Ql (U) Negative Negative [facility] No Panel InformationOrdered By: Keaton Barnard on 08-11-2021 Estimated GFR () > 60 mL/Min [facility] Comment on above: GFR estimated refere nce range: According to KDOQI guidelines, <60 ml/min/1.73m2 is sufficient to diagnose a patient with chronic kidney disease. Pharmacy Creatinine Clearance (Chem 62.33 [facility] Platelet mean volume Auto (B ld) [Entitic vol]Ordered By: Keaton Barnard on 08-11-2021 Platelet mean volume (Bld) [Entitic vol] 8.0 fL 6.3-10.7 [facility] Platelet poor plasma interna tional normalized ratio (INR) by coagulation assay (relatOrdered By: Keaton Barnard on 08-11-2021 INR Coag (PPP) [Relative time] 1.1 {INR} [facility] Comment on above: INR Therapeutic Rang [...] 08-11-2021 Platelets (Bld) [#/Vol] 252 10*3/uL 150-450 [facility] Protein Auto test strip (U) [Mass/Vol]Ordered By: Keaton Barnard on 08-11-2021 Protein (U) [Mass/Vol] Negative Negative [facility] Protein [Mass/volume] in Ser um or PlasmaOrdered By: Keaton Barnard on 08-11-2021 Protein [Mass/Vol] 6.0 g/dL 6.1-7.9 [facility] RBC Auto (Bld) [#/Vol]Ordere d By: Keaton Barnard on 08-11-2021 RBC (Bld) [#/Vol] 4.35 10*6/uL 3.60-5.00 [facility] Serum or plasma alanine hughes otransferase measurement without P-5'-P (enzymatic activiOrdered By: Keaton Barnard on 08-11-2021 ALT No additional P-5'-P [Catalytic activity/Vol] 12 U/L 10-60 [facility] Serum or plasma albumin/glob ulin mass ratioOrdered By: Keaton Barnard on 08-11-2021 Albumin/Globulin [Mass ratio] 1.3 {ratio} [facility] Serum or plasma alkaline jaqueline sphatase measurement (enzymatic activity/volume)Ordered By: Keaton Barnard on 08-11-2021 ALP [Catalytic activity/Vol] 98 U/L 32-92 [facility] Serum or plasma aspartate am inotransferase measurement (enzymatic activity/volume)Ordered By: Keaton Barnard on 08-11-2021 AST [Catalytic activity/Vol] 17 U/L 10-42 [facility] Serum or plasma calcium priscilla urement (mass/volume)Ordered By: Keaton Barnard on 08-11-2021 Calcium [Mass/Vol] 9.3 mg/dL 8.2-10.2 [facility] Serum or plasma chloride daron surement (moles/volume)Ordered By: Keaton Barnard on 08-11-2021 Chloride [Moles/Vol] 104 mmol/L 95-114 [facility] Serum or plasma glucose priscilla urement (mass/volume)Ordered By: Keaton Barnard on 08-11-2021 Glucose [Mass/Vol] 95 mg/dL 70-100 [facility] Comment on above: ADA recommended refe rence range Random Glucose Reference Range is dependent on time and content of last meal. Glucose of more than 200 mg/dL in a nonstressed, ambulatory subject supports the diagnosis of Diabetes Mellitus. Serum or plasma non-glucuron idated bilirubin measurement (mass/volume)Ordered By: Keaton Barnard on 08-11-2021 Bilirubin.indirect [Mass/Vol] TNP [facility] Comment on above: Test not performed Serum or plasma potassium me asurement (moles/volume)Ordered By: Keaton Barnard on 08-11-2021 Potassium [Moles/Vol] 3.8 mmol/L 3.5-5.1 [facility] Serum or plasma sodium measu rement (moles/volume)Ordered By: Keaton Barnard on 08-11-2021 Sodium [Moles/Vol] 138 mmol/L 136-146 [facility] Serum or plasma total biliru bin measurement (mass/volume)Ordered By: Keaton Barnard on 08-11-2021 Bilirubin [Mass/Vol] 0.3 mg/dL 0.3-1.2 [facility] Serum or plasma total carbon dioxide measurement (moles/volume)Ordered By: Keaton Barnard on 08-11-2021 CO2 [Moles/Vol] 24.8 mmol/L 22.0-30.0 [facility] Serum or plasma urea nitroge n measurement (mass/volume)Ordered By: Keaton Barnard on 08-11-2021 Urea nitrogen [Mass/Vol] 10 mg/dL 9- [facility] Specific gravity Auto test s trip (U) [Rel density]Ordered By: Keaton Barnard on 08-11-2021 Specific gravity (U) [Rel density] 1.028 1.001-1.030 [facility] Troponin I.cardiac [Mass/vol ume] in Serum or Plasma by High sensitivity methodOrdered By: Keaton Barnard on 08-11-2021 Troponin I.cardiac High sensitivity method [Mass/Vol] 3 pg/mL 0-15 [facility] Urine clarity by refractomet ry automatedOrdered By: Keaton Barnard on 08-11-2021 Clarity Refractometry automated (U) Clear Clear [facility] Urine glucose measurement by automated test strip (mass/volume)Ordered By: Keaton Barnard on 08-11-2021 Glucose Auto test strip (U) [Mass/Vol] Normal mg/dL Normal [facility] Urine hemoglobin detection b y automated test stripOrdered By: Keaton Barnard on 08-11-2021 Hemoglobin Auto test strip Ql (U) Negative Negative [facility] Urine leukocyte esterase det ection by automated test stripOrdered By: Keaton Barnard on 08-11-2021 Leukocyte esterase Auto test strip Ql (U) Negative Negative [facility] Urobilinogen Auto test strip (U) [Mass/Vol]Ordered By: Keaton Barnard on 08-11-2021 Urobilinogen (U) [Mass/Vol] Normal mg/dL Normal [facility] pH Auto test strip (U)Ordere d By: Keaton Barnard on 08-11-2021 pH (U) 5.0 [pH] 5.0-9.0 [facility] AMYLASEon 07-31-2021 Amylase [Catalytic activity/Vol] 158 U/L Critically high 25-115 [facility] Comment on above: Performed By: #### L IPA, CMP, CRP, NAT #### [facility] [address] [place], [place] [address] Dr. Keturah Fisher CBC AUTO DIFFon 07-31-2021 BASO # 0.1 103/ul Normal 0.0-0.1 [facility] Comment on above: Performed By: #### C BC ####[facility] [address] [address]DrGopal Fisher Basophils/100 WBC (Bld) 0.7 % Normal 0.2-2.0 [facility] Comment on above: Performed By: #### C BC ####[facility] [address] [address]DrGopal Fisher EO # 0.1 103/ul Normal 0.0-0.7 [facility] Comment on above: Performed By: #### C BC ####[facility] [address] [address]DrGopal Fisher Eosinophils/100 WBC (Bld) 0.9 % Normal 0.9-7.0 [facility] Comment on above: Performed By: #### C BC ####[facility] [address] [address]DrGopal Fisher Erythrocyte distribution width (RBC) [Ratio] 12.7 % Normal 11.0-15.0 [facility] Comment on above: Performed By: #### C BC ####[facility] [address] [address]DrGopal Fisher Hematocrit (Bld) [Volume fraction] 43.2 % Normal 36.0-48.0 [facility] Comment on above: Performed By: #### C BC ####[facility] [address] [address]DrGopal Fisher Hemoglobin (Bld) [Mass/Vol] 14.5 g/dL Normal 12.0-16.0 [facility] Comment on above: Performed By: #### C BC ####[facility] [address] [id number]. Elisaeli Phillip IG # 0.04 10e3/ul Critically high 0.00-0.03 [facility] Comment on above: Performed By: #### C BC ####[facility] [address] [address]Dr. Keturah Fisher IG % 0.4 % Normal 0.0-0.5 [facility] Comment on above: Performed By: #### C BC ####[facility] [address] [address]Dr. Keturah Fisher LYMPH # 2.8 103/ul Normal 1.2-3.8 [facility] Comment on above: Performed By: #### C BC ####[facility] [address] [address]Dr. Keturah Fisher Lymphocytes/100 WBC (Bld) 24.9 % Normal 20.5-60.0 [facility] Comment on above: Performed By: #### C BC ####[facility] [address] [address]Dr. Keturah Fisher MANUAL DIFF REQ NO Normal [facility] Comment on above: Performed By: #### C BC ####[facility] [address] [address]Dr. Keturah Fisher MCH (RBC) [Entitic mass] 32.7 pg Normal 26.7-34.0 [facility] Comment on above: Performed By: #### C BC ####[facility] [address] [address]Dr. Keturah Phillip MCHC (RBC) [Mass/Vol] 33.6 g/dL Normal 29.9-35.2 [facility] Comment on above: Performed By: #### C BC ####[facility] [address] [place], [place] [address]Dr. Keturah Phillip MCV (RBC) [Entitic vol] 97.5 fL Normal 81.0-99.0 [facility] Comment on above: Performed By: #### C BC ####[facility] [address] [id number]. Keturah Fisher MONO # 0.9 103/ul Critically high 0.3-0.[address] [facility] Comment on above: Performed By: #### C BC ####[facility] [address] [address]Dr. Keturah Fisher Monocytes/100 WBC (Bld) 8.1 % Normal 1.7-12.0 [facility] Comment on above: Performed By: #### C BC ####[facility] [address] [address]Dr. Keturah Fisher NEUT # 7.3 103/ul Critically high 1.4-6.[address] [facility] Comment on above: Performed By: #### C BC ####[facility] [address] [address]Dr. Keturah Fisher Neutrophils/100 WBC (Bld) 65.0 % Normal 43.0-75.0 [facility] Comment on above: Performed By: #### C BC ####[facility] [address] [place], [place] [address]Dr. Keturah Fisher Platelet mean volume (Bld) [Entitic vol] 10.0 fL Normal 9.5-13.5 [facility] Comment on above: Performed By: #### C BC ####[facility] [address] [place], [place] [address]Dr. Keturah Fisher PLT 245 103/ul Normal 150-450 [facility] Comment on above: Performed By: #### C BC ####[facility] [address] [place], [place] [address]Dr. Keturah Fisher RBC 4.43 106/ul Normal 4.20-5.40 [facility] Comment on above: Performed By: #### C BC ####[facility] [address] [place], [place] [id number]. Keturah Fisher WBC 11.2 103/ul Critically high 4.0-11.0 [facility] Comment on above: Performed By: #### C BC ####[facility] [address] [place], [place] [id number]. Keturah Fisher LIPASEon 07-31-2021 Lipase [Catalytic activity/Vol] 439.0 U/L Critically high 73.0-393.0 [facility] Comment on above: Performed By: #### L IPA, CMP, CRP, NAT #### [facility] [address] [address] [address] Keturah Fisher PROF 14(COMP METB)on 022 Albumin [Mass/Vol] 3.6 g/dL Normal 3.4-5.0 [facility] Comment on above: Performed By: #### L IPA, CMP, CRP, NAT #### [facility] [address] [address] [address] Keturah Fisher Albumin/Globulin [Mass ratio] 1.1 {ratio} Normal [facility] Comment on above: Performed By: #### L IPA, CMP, CRP, NAT #### [facility] [address] [place] [address] Dr. Keturah Fisher ALP [Catalytic activity/Vol] 119 U/L Critically high 46-116 [facility] Comment on above: Performed By: #### L IPA, CMP, CRP, NAT #### [facility] [address] [address] [address] Keturah Fisher ALT [Catalytic activity/Vol] 20 U/L Normal 14-59 [facility] Comment on above: Performed By: #### L IPA, CMP, CRP, NAT #### [facility] [address] [address] [address] Keturah Fisher Anion gap [Moles/Vol] 13.4 mmol/L Normal [facility] Comment on above: Performed By: #### L IPA, CMP, CRP, NAT #### [facility] [address] [address] [address] Keturah Fisher AST [Catalytic activity/Vol] 16 U/L Normal 15-37 [facility] Comment on above: Performed By: #### L IPA, CMP, CRP, NAT #### [facility] [address] [address] [address] Keturah Fisher Bilirubin [Mass/Vol] 0.1 mg/dL Critically low 0.2-1.0 [facility] Comment on above: Performed By: #### L IPA, CMP, CRP, NAT #### [facility] [address] [place] [address] Dr. Keturah Fisher Calcium [Mass/Vol] 8.9 mg/dL Normal 8.5-10.1 [facility] Comment on above: Performed By: #### L IPA, CMP, CRP, NAT #### [facility] [address] [place] [address] Dr. Keturah Fisher Chloride [Moles/Vol] 106 mmol/L Normal 98-107 [facility] Comment on above: Performed By: #### L IPA, CMP, CRP, NAT #### [facility] [address] [place] [address] Dr. Keturah Fisher CO2 [Moles/Vol] 25.4 mmol/L Normal 21.0-32.0 [facility] Comment on above: Performed By: #### L IPA, CMP, CRP, NAT #### [facility] [address] [place] [address] Dr. Keturah Fisher Creatinine [Mass/Vol] 0.73 mg/dL Normal 0.55-1.02 [facility] Comment on above: Performed By: #### L IPA, CMP, CRP, NAT #### [facility] [address] [place] [address] Dr. Keturah Fisher EGFR-AF CITIZEN [place] >60 Normal >=60 [facility] Comment on above: Performed By: #### L IPA, CMP, CRP, NAT #### [facility] [address] [place] [address] Dr. Keturah Fisher EGFR-NON AF CITIZEN OF [place] >60 Normal >=60 [facility] Comment on above: Performed By: #### L IPA, CMP, CRP, NAT #### [facility] [address] [place] [address] Dr. Keturah Fisher Globulin (S) [Mass/Vol] 3.2 g/dL Normal [facility] Comment on above: Performed By: #### L IPA, CMP, CRP, NAT #### [facility] [address] [address] [address] Keturah Fisher Glucose [Mass/Vol] 105 mg/dL Normal 74-106 [facility] Comment on above: Performed By: #### L IPA, CMP, CRP, NAT #### [facility] [address] [address] [address] Keturah Fisher Potassium [Moles/Vol] 3.8 mmol/L Normal 3.5-5.1 [facility] Comment on above: Performed By: #### L IPA, CMP, CRP, NAT #### [facility] [address] [address] [address] Keturah Fisher Protein [Mass/Vol] 6.8 g/dL Normal 6.4-8.2 [facility] Comment on above: Performed By: #### L IPA, CMP, CRP, NAT #### [facility] [address] [address] [address] Keturah Fisher Sodium [Moles/Vol] 141 mmol/L Normal 136-145 [facility] Comment on above: Performed By: #### L IPA, CMP, CRP, NAT #### [facility] [address] [address] [address] Keturah Fisher Urea nitrogen [Mass/Vol] 12.0 mg/dL Normal 7.0-18.0 [facility] [place] Comment on above: Performed By: #### L IPA, CMP, CRP, NAT #### [facility] [address] [address] [address] Keturah Fisher Urea nitrogen/Creatinine [Mass ratio] 16.4 mg/mg Normal [facility] Comment on above: Performed By: #### L IPA, CMP, CRP, NAT #### [facility] [address] [address] [address] Keturah Fisher TROPONIN, HIGH SENSITIVITYon 07-31-2021 HSTROP 4.2 pg/mL Normal 4.0-51.3 [facility] Comment on above: Result Comment: CUT- OFF POINTS HAVE BEEN ESTABLISHED BASED ON THE FOURTH UNIVERSAL DEFINITIONS OF MYOCARDIAL INFARCTION. THE UPPER REFERENCE LIMIT (URL) OF TROPONIN, DEFINED THE 99TH PERCENTILE OF cTnI DISTRIBUTION IN A REFERENCE POPULATION, HAS BEEN CONFIRMED THE DECISION THRESHOLD FOR [place] DIAGNOSIS. Performed By: #### L IPA, CMP, CRP, NAT #### [facility] [address] [address] [address] Keturah Fisher AMYLASEon 07-19-2021 Amylase [Catalytic activity/Vol] 198 U/L Critically high 25-115 [facility] Comment on above: Performed By: #### A MY, LIPA, CMP ####[facility] [address] [address]Dr. Keturah Fisher CBC AUTO DIFFon 07-19-2021 BASO # 0.1 103/ul Normal 0.0-0.1 [facility] Comment on above: Performed By: #### C BC ####[facility] [address] [address]DrGopal Fisher Basophils/100 WBC (Bld) 0.7 % Normal 0.2-2.0 [facility] Comment on above: Performed By: #### C BC ####[facility] [address] [address]DrGopal Fisher EO # 0.1 103/ul Normal 0.0-0.7 [facility] Comment on above: Performed By: #### C BC ####[facility] [address] [address]DrGopal Fisher Eosinophils/100 WBC (Bld) 1.0 % Normal 0.9-7.0 [facility] Comment on above: Performed By: #### C BC ####[facility] [address] [address]Dr. Keturah Fisher Erythrocyte distribution width (RBC) [Ratio] 12.5 % Normal 11.0-15.0 [facility] Comment on above: Performed By: #### C BC ####[facility] [address] [address]DrGopal Fisher Hematocrit (Bld) [Volume fraction] 42.4 % Normal 36.0-48.0 [facility] Comment on above: Performed By: #### C BC ####[facility] [address] [address]Dr. Keturah Fisher Hemoglobin (Bld) [Mass/Vol] 14.2 g/dL Normal 12.0-16.0 [facility] Comment on above: Performed By: #### C BC ####[facility] [address] [address]Dr. Keturah Fisher IG # 0.03 10e3/ul Normal 0.00-0.03 [facility] Comment on above: Performed By: #### C BC ####[facility] [address] [address]Dr. Keturah Fisher IG % 0.3 % Normal 0.0-0.5 [facility] Comment on above: Performed By: #### C BC ####[facility] [address] [address]Dr. Keturah Fisher LYMPH # 3.0 103/ul Normal 1.2-3.8 [facility] Comment on above: Performed By: #### C BC ####[facility] [address] [address]Dr. Keturah Fisher Lymphocytes/100 WBC (Bld) 29.5 % Normal 20.5-60.0 [facility] Comment on above: Performed By: #### C BC ####[facility] [address] [address]Dr. Keturah Fisher MANUAL DIFF REQ NO Normal The [facility] Comment on above: Performed By: #### C BC ####[facility] [address] [id number]. Keturah Fisher MCH (RBC) [Entitic mass] 32.8 pg Normal 26.7-34.0 [facility] Comment on above: Performed By: #### C BC ####[facility] [address] [address]Dr. Keturah Fisher MCHC (RBC) [Mass/Vol] 33.5 g/dL Normal 29.9-35.2 [facility] Comment on above: Performed By: #### C BC ####[facility] [address] [place], [place] [address]Dr. Keturah Phillip MCV (RBC) [Entitic vol] 97.9 fL Normal 81.0-99.0 [facility] Comment on above: Performed By: #### C BC ####[facility] [address] [address]Dr. Keturah Phillip MONO # 1.0 103/ul Critically high 0.3-0.[address] [facility] Comment on above: Performed By: #### C BC ####[facility] [address] [address]Dr. Keturah Fisher Monocytes/100 WBC (Bld) 9.3 % Normal 1.7-12.0 [facility] Comment on above: Performed By: #### C BC ####[facility] [address] [address]Dr. Elisaeli Phillip NEUT # 6.1 103/ul Normal 1.4-6.5 [facility] Comment on above: Performed By: #### C BC ####[facility] [address] [address]Dr. Elisaeli Fisher Neutrophils/100 WBC (Bld) 59.2 % Normal 43.0-75.0 [facility] Comment on above: Performed By: #### C BC ####[facility] [address] [address]Dr. Keturah Fisher Platelet mean volume (Bld) [Entitic vol] 9.8 fL Normal 9.5-13.5 [facility] Comment on above: Performed By: #### C BC ####[facility] [address] [address]Dr. Keturah Fisher PLT 249 103/ul Normal 150-450 [facility] Comment on above: Performed By: #### C BC ####[facility] [address] [address]Dr. Keturah Fisher RBC 4.33 106/ul Normal 4.20-5.40 [facility] Comment on above: Performed By: #### C BC ####[facility] [address] [address]Dr. Keturah Fisher WBC 10.2 103/ul Normal 4.0-11.0 [facility] [place] Comment on above: Performed By: #### C BC ####[facility] [address] [address]Dr. Keturah Fisher LIPASEon 07-19-2021 Lipase [Catalytic activity/Vol] 554.0 U/L Critically high 73.0-393.0 [facility] [place] Comment on above: Performed By: #### A MY, LIPA, CMP ####[facility] [address] [address]Dr. Keturah Fisher PROF 14(COMP METB)on 022 Albumin [Mass/Vol] 4.0 g/dL Normal 3.4-5.0 [facility] Comment on above: Performed By: #### A MY, LIPA, CMP ####[facility] [address] [address]Dr. Keturah Fisher Albumin/Globulin [Mass ratio] 1.1 {ratio} Normal [facility] [place] Comment on above: Performed By: #### A MY, LIPA, CMP ####[facility] [address] [address]Dr. Keturah Fisher ALP [Catalytic activity/Vol] 141 U/L Critically high 46-116 [facility] [place] Comment on above: Performed By: #### A MY, LIPA, CMP ####[facility] [address] [address]Dr. Ketruah Fisher ALT [Catalytic activity/Vol] 21 U/L Normal 14-59 [facility] [place] Comment on above: Performed By: #### A MY, LIPA, CMP ####[facility] [address] [address]Dr. Keturah Fisher Anion gap [Moles/Vol] 10.3 mmol/L Normal [facility] Comment on above: Performed By: #### A MY, LIPA, CMP ####[facility] [address] [address]Dr. Keturah Fisher AST [Catalytic activity/Vol] 22 U/L Normal 15-37 [facility] Comment on above: Performed By: #### A AMANDEEP LIPA, CMP ####[facility] [address] [address]Dr. Keturah Fisher Bilirubin [Mass/Vol] 0.3 mg/dL Normal 0.2-1.0 [facility] Comment on above: Performed By: #### A AMANDEEP LIPA, CMP ####[facility] [address] [place], [place] [address]Dr. Keturah Fisher Calcium [Mass/Vol] 9.9 mg/dL Normal 8.5-10.1 The [facility] Comment on above: Performed By: #### A AMANDEEP LIPA, CMP ####[facility] [address] [place], [place] [address]Dr. Keturah Fisher Chloride [Moles/Vol] 103 mmol/L Normal 98-107 [facility] Comment on above: Performed By: #### A AMANDEEP LIPA, CMP ####[facility] [address] [place], [place] [address]Dr. Keturah Fisher CO2 [Moles/Vol] 27.6 mmol/L Normal 21.0-32.0 [facility] Comment on above: Performed By: #### A AMANDEEP LIPA, CMP ####[facility] [address] [place], [place] [address]Dr. Keturah Fisher Creatinine [Mass/Vol] 0.93 mg/dL Normal 0.55-1.02 [facility] Comment on above: Performed By: #### A AMANDEEP LIPA, CMP ####[facility] [address] [place], [place] [address]Dr. Keturah Fisher EGFR-AF CITIZEN OF [place] >60 Normal >=60 [facility] Comment on above: Performed By: #### A AMANDEEP LIPA, CMP ####[facility] [address] [place], [place] [address]Dr. Keturah Fisher EGFR-NON AF CITIZEN OF [place] >60 Normal >=60 [facility] Comment on above: Performed By: #### A AMANDEEP LIPA, CMP ####[facility] [address] [place], [place] [address]Dr. Keturah Phillip Globulin (S) [Mass/Vol] 3.5 g/dL Normal [facility] Comment on above: Performed By: #### A ROB BERNSTEIN, CMP ####[facility] [address] [address]Dr. Keturah Phillip Glucose [Mass/Vol] 99 mg/dL Normal 74-106 [facility] Comment on above: Performed By: #### A AMANDEEP LIPA, CMP ####[facility] [address] [address]Dr. Keturah Fisher Potassium [Moles/Vol] 3.9 mmol/L Normal 3.5-5.1 [facility] Comment on above: Performed By: #### A AMANDEEP LIPA, CMP ####[facility] [address] [address]Dr. Keturah Fisher Protein [Mass/Vol] 7.5 g/dL Normal 6.4-8.2 [facility] Comment on above: Performed By: #### A AMANDEEP LIPA, CMP ####[facility] [address] [address]Dr. Keturah Fisher Sodium [Moles/Vol] 137 mmol/L Normal 136-145 [facility] Comment on above: Performed By: #### A AMANDEEP LIPA, CMP ####[facility] [address] [address]Dr. eKturah Fisher Urea nitrogen [Mass/Vol] 9.0 mg/dL Normal 7.0-18.0 [facility] Comment on above: Performed By: #### A AMANDEEP LIPA, CMP ####[facility] [address] [address]Dr. Keturah Fisher Urea nitrogen/Creatinine [Mass ratio] 9.7 mg/mg Normal [facility] Comment on above: Performed By: #### A AMANDEEP LIPA, CMP ####[facility] [address] [address]Dr. Keturah Fisher XR ABD FLAT UP_PA Jorje [...] by: LYNNE PERDOMO Date: 2021-07-19 16:57 Normal [facility] COVID Quick Testingon 2021 Result Positive PartSimple Other ANES Marcial 11-13-2020 ANES POST HNO ID: [id number] Author: Ion Avila MD Service: Anesthesiology Author [...] 13, 2020 TIME: 12:38 PM PAGER/CONTACT #: [phone] [facility] NURSING PROGon 11-13-2020 NURSING PROG HNO ID: [id number] Author: Viky Nguyen RN Service: Nursing Author [...] [place] NURSING PROG HNO ID: [id number] Author: Landy Smith RN Service: Nursing Author [...] By: Landy Smith RN In Department: GASTROENTEROLOGY [facility] CHIOMA RAINEY ([id number]) 1970 F Date Time Provider Department 11/07/20 [...] have family/friend present for procedure? transport home:Patient/patient floor representative was told that if they do [...] area. Any barriers to Patient learning: Patient/Patient [employer] responded appropriately on phone. Type of instruction [...] Fully Assessed Reason for Visit: Appointment Confirmation [[id number]] Prescriptions as of 11/07/2020 - promethazine HCl [...] Status:Closed by NASREEN GORMAN on 11/07/[address] [facility] CT ABDOMEN PELVIS W IV CONTR [...] Jhoan Beatty MD 03/28/20 Final result Normal [facility] Amylaseon 03-26-2020 Amylase [Catalytic activity/Vol] 185 U/L High 28-100 [facility] Comment on above: Performed By: #### R EJEC, NAT, LIP, CMPX #### [facility] [address] [place] [address] System Planning Engineer: Ion Jasso MD Amylase [Catalytic activity/Vol] 185 U/L High 28 - 100 U/L [place] CBC Auto Differentialon 03-09 Basophils (Bld) [#/Vol] 0.06 10*3/uL [place] Basophils/100 WBC (Bld) 1 % 0 - 2 % [place] Differential Type NOT REPORTED [place] Eosinophils (Bld) [#/Vol] 0.12 10*3/uL [place] Eosinophils/100 WBC (Bld) 1 % 1 - 4 % [place] Erythrocyte distribution width (RBC) [Ratio] 12.4 % 11.8 - 14.4 % [place] Hematocrit (Bld) [Volume fraction] 40.6 % 36.3 - 47.1 % [place] Hemoglobin (Bld) [Mass/Vol] 13.7 g/dL 11.9 - 15.1 g/dL [place] Immature granulocytes (Bld) [#/Vol] 0 % 0 [place] Immature granulocytes (Bld) [#/Vol] 10*3/uL [place] Lymphocytes (Bld) [#/Vol] 2.62 10*3/uL [place] Lymphocytes/100 WBC (Bld) 27 % 24 - 43 % [place] MCH (RBC) [Entitic mass] 33.4 pg 25.2 - 33.5 pg [place] MCHC (RBC) [Mass/Vol] 33.7 g/dL 28.4 - 34.8 g/dL [place] MCV (RBC) [Entitic vol] 99.0 fL 82.6 - 102.9 fL [place] Monocytes (Bld) [#/Vol] 0.78 10*3/uL [place] Monocytes/100 WBC (Bld) 8 % 3 - 12 % [place] Platelet mean volume (Bld) [Entitic vol] 9.4 fL 8.1 - 13.5 fL [place] Platelets (Bld) [#/Vol] 235 10*3/uL [place] Platelets (Bld) [#/Vol] NOT REPORTED [place] RBC (Bld) [#/Vol] 4.10 10*6/uL 3.95 - 5.1 1 m/uL [place] RBC morphology finding Nom (Bld) NOT REPORTED [place] Segmented neutrophils/100 WBC (Bld) 63 % 36 - 65 % [place] Segs Absolute 5.96 [place] WBC (Bld) [#/Vol] 9.6 10*3/uL [place] WBC (Bld) [#/Vol] 0.0 10*3/uL 0.0 per 10 0 WBC [place] WBC Morphology NOT REPORTED [place], [place] CBC with Diffon 03-26-2020 Abs. Basophil 0.06 k/uL Normal 0.00-0.20 [facility] Comment on above: Performed By: #### C DP, LIP #### [address] [place] [address] System Planning Engineer: Zafar Castillo MD Abs.Imm.Granulocyte <0.03 Normal 0.00-0.30 [facility] Comment on above: Performed By: #### C DP, LIP #### [facility] [address] [place] [address] System Planning Engineer: Zafar Castillo MD Abs.Neutrophil (Seg) 5.96 k/uL Normal 1.50-8.10 [facility] Comment on above: Performed By: #### C DP, LIP #### [address] [place] [address] System Planning Engineer: Zafar Castillo MD Basophils/100 WBC (Bld) 1 % Normal 0-2 [facility] Comment on above: Performed By: #### C DP, LIP #### [facility] [address] [place], [place] [address] System Planning Engineer: Zafar Castillo MD Eosinophils (Bld) [#/Vol] 0.12 10*3/uL Normal 0.00-0.44 [facility] Comment on above: Performed By: #### C DP, LIP #### [facility] [address] [place], [place] [address] System Planning Engineer: Zafar Castillo MD Eosinophils/100 WBC (Bld) 1 % Normal 1-4 [facility] Comment on above: Performed By: #### C DP, LIP #### [facility] [address] [place] [address] System Planning Engineer: Zafar Castillo MD Erythrocyte distribution width (RBC) [Ratio] 12.4 % Normal 11.8-14.4 [facility] Comment on above: Performed By: #### C DP, LIP #### [facility] [address] [place], [place] [address] System Planning Engineer: Zafar Castillo MD Hematocrit (Bld) [Volume fraction] 40.6 % Normal 36.3-47.1 [facility] Comment on above: Performed By: #### C DP, LIP #### [address] [place], [place] [address] System Planning Engineer: Zafar Castillo MD Hemoglobin (Bld) [Mass/Vol] 13.7 g/dL Normal 11.9-15.1 [facility] Comment on above: Performed By: #### C DP, LIP #### [facility] [address] [place] [id number] System Planning Engineer: Zafar Castillo MD Immature granulocytes (Bld) [#/Vol] 0 % Normal 0 [facility] Comment on above: Performed By: #### C DP, LIP #### [facility] [address] [place], [facility] System Planning Engineer: Zafar Castillo MD Lymphocytes (Bld) [#/Vol] 2.62 10*3/uL Normal 1.10-3.70 [facility] Comment on above: Performed By: #### C DP, LIP #### [facility] [address] [place], [facility] System Planning Engineer: Zafar Castillo MD Lymphocytes/100 WBC (Bld) 27 % Normal 24-43 [facility] Comment on above: Performed By: #### C DP, LIP #### [facility] [address] [place] [facility] System Planning Engineer: Zafar Castillo MD MCH (RBC) [Entitic mass] 33.4 pg Normal 25.2-33.5 [facility] Comment on above: Performed By: #### C DP, LIP #### [address] [place], [facility] System Planning Engineer: Zafar Castillo MD MCHC (RBC) [Mass/Vol] 33.7 g/dL Normal 28.4-34.8 [facility] Comment on above: Performed By: #### C DP, LIP #### [address] [place], [facility] System Planning Engineer: Zafar Castillo MD MCV (RBC) [Entitic vol] 99.0 fL Normal 82.6-102.9 [facility] Comment on above: Performed By: #### C DP, LIP #### [facility] [address] [place], [facility] System Planning Engineer: Zafar Castillo MD Monocytes (Bld) [#/Vol] 0.78 10*3/uL Normal 0.10-1.20 [facility] Comment on above: Performed By: #### C DP, LIP #### [facility] [address] [place], [facility] System Planning Engineer: Zafar Castillo MD Monocytes/100 WBC (Bld) 8 % Normal 3-12 [facility] Comment on above: Performed By: #### C DP, LIP #### [facility] [address] [place], [place] [id number] System Planning Engineer: Zafar Castillo MD Neutrophil (Seg) 63 % Normal 36-65 [facility] Comment on above: Performed By: #### C DP, LIP #### [facility] [address] [place], [place] [address]83 System Planning Engineer: Zafar Castillo MD NRBC Automated 0.0 per 100 WBC Normal 0.0 [facility] Comment on above: Performed By: #### C DP, LIP #### [facility] [address] [place] [address] System Planning Engineer: Zafar Castillo MD Platelet mean volume (Bld) [Entitic vol] 9.4 fL Normal 8.1-13.5 [facility] Comment on above: Performed By: #### C DP, LIP #### [facility] [address] [place], [place] [id number] System Planning Engineer: Zafar Castillo MD Platelets (Bld) [#/Vol] 235 10*3/uL Normal 138-453 [facility] Comment on above: Performed By: #### C DP, LIP #### [facility] [address] [place] [address] System Planning Engineer: Zafar Castillo MD RBC (Bld) [#/Vol] 4.10 10*6/uL Normal 3.95-5.11 [facility] Comment on above: Performed By: #### C DP, LIP #### [facility] [address] [place] [address] System Planning Engineer: Zafar Castillo MD WBC (Bld) [#/Vol] 9.6 10*3/uL Normal 3.5-11.3 [facility] Comment on above: Performed By: #### C DP, LIP #### [facility] [address] [place], [place] [id number] System Planning Engineer: Zafar Castillo MD Auto Diff Performed NOT REPORTED Normal [facility] Comment on above: Performed By: #### C DP, LIP #### [facility] [address] [place] [address] System Planning Engineer: Zafar Castillo MD Platelets (Bld) [#/Vol] NOT REPORTED Normal [facility] Comment on above: Performed By: #### C DP, LIP #### [facility] [address] [place] [address] System Planning Engineer: Zafar Castillo MD RBC morphology finding Nom (Bld) NOT REPORTED Normal [facility] Comment on above: Performed By: #### C DP, LIP #### [facility] [address] [place], [place] [id number] System Planning Engineer: Zafar Castillo MD WBC Morphology NOT REPORTED Normal [facility] Comment on above: Performed By: #### C DP, LIP #### [address] [place], [place] [id number] System Planning Engineer: Zafar Castillo MD Comp Metabolic Pr/rfx MGon 0 03-26-2020 (cont.) Normal [facility] Comment on above: Result Comment: Aver age GFR for 50-59 years old: 93 mL/min/1.73sq m Chronic Kidney Disease: <60 mL/min/1.73sq m Kidney failure: <15 mL/min/1.73sq m eGFR calculated using average adult body mass. Additional eGFR calculator available at: http://www.Billogram.HardMetrics/multiple_crcl_2012.htm Performed By: #### R NAT MARCUS, LIP, CMPX #### [facility] [address] [place], [place] [id number] System Planning Engineer: Ion Jasso MD Albumin [Mass/Vol] 4.3 g/dL Normal 3.5-5.2 [facility] Comment on above: Performed By: #### R EJEC, NAT, LIP, CMPX #### [facility] [address] [place] [address] System Planning Engineer: Ion Jasso MD Albumin/Globulin [Mass ratio] 1.7 {ratio} Normal 1.0-2.5 [facility] Comment on above: Performed By: #### R EJEC, NAT, LIP, CMPX #### [facility] [address] [place], [place] [id number] System Planning Engineer: Ion Jasso MD Alkaline Phos 117 U/L High 35-104 [facility] Comment on above: Performed By: #### R EJEC, NAT, LIP, CMPX #### [address] [place], [place] [id number] System Planning Engineer: Ion Jasso MD ALT [Catalytic activity/Vol] 11 U/L Normal 5-33 [facility] Comment on above: Performed By: #### R EJEC, NAT, LIP, CMPX #### [address] [place], [place] [address]83 System Planning Engineer: Ion Jasso MD Anion gap [Moles/Vol] 9 mmol/L Normal 9-17 [facility] Comment on above: Performed By: #### R EJEC, NAT, LIP, CMPX #### [facility] [address] [place] [address] Dr[place], [place] [id number] System Planning Engineer: Ion Jasso MD AST [Catalytic activity/Vol] 18 U/L Normal <32 [facility] Comment on above: Performed By: #### R EJEC, NAT, LIP, CMPX #### [address] [place] [address] System Planning Engineer: Ion Jasso MD Bilirubin Ql (U) 0.15 mg/dL Low 0.3-1.2 [facility] Comment on above: Performed By: #### R EJEC, NAT, LIP, CMPX #### [facility] [address] [place], [facility] System Planning Engineer: Ion Jasso MD BUN/CRE Ratio 12 Normal 9-20 [facility] Comment on above: Performed By: #### R EJEC, NAT, LIP, CMPX #### [facility] [address] [place], [facility] System Planning Engineer: Ion Jasso MD Calcium [Mass/Vol] 9.7 mg/dL Normal 8.6-10.4 [facility] Comment on above: Performed By: #### R EJEC, NAT, LIP, CMPX #### [address] [place], [facility] System Planning Engineer: Ion Jasso MD Chloride [Moles/Vol] 102 mmol/L Normal 98-107 [facility] Comment on above: Performed By: #### R EJEC, NAT, LIP, CMPX #### [address] [place], [facility] System Planning Engineer: Ion Jasso MD CO2 [Moles/Vol] 25 mmol/L Normal 20-31 [facility] Comment on above: Performed By: #### R EJEC, NAT, LIP, CMPX #### [facility] [address] [place] [address] Dr. [place], [facility] [facility] System Planning Engineer: Ion Jasso MD Creatinine [Mass/Vol] 0.74 mg/dL Normal 0.50-0.90 [facility] Comment on above: Performed By: #### R EJEC, NAT, LIP, CMPX #### [facility] [address] [place] [address] System Planning Engineer: Ion Jasso MD GFR, Amer >60 Normal >60 [facility] Comment on above: Performed By: #### R EJEC, NAT, LIP, CMPX #### [facility] [address] [place], [place] [id number] System Planning Engineer: Ion Jasso MD GFR,non Amer >60 Normal >60 [facility] Comment on above: Performed By: #### R EJEC, NAT, LIP, CMPX #### [facility] [address] [place], [place] [id number] System Planning Engineer: Ion Jasso MD Glucose [Mass/Vol] 94 mg/dL Normal 70-99 [facility] Comment on above: Performed By: #### R EJEC, NAT, LIP, CMPX #### [facility] [address] [place], [place] [id number] System Planning Engineer: Ion Jasso MD Potassium [Moles/Vol] 4.2 mmol/L Normal 3.7-5.3 [facility] Comment on above: Performed By: #### R EJEC, NAT, LIP, CMPX #### [facility] [address] [place], [place] [id number] System Planning Engineer: Ion Jasso MD Protein [Mass/Vol] 6.8 g/dL Normal 6.4-8.3 [facility] Comment on above: Performed By: #### R EJEC, NAT, LIP, CMPX #### [facility] [address] [place], [place] [id number] System Planning Engineer: Ion Jasso MD Sodium [Moles/Vol] 136 mmol/L Normal 135-144 [facility] Comment on above: Performed By: #### R EJEC, NAT, LIP, CMPX #### [facility] [address] [place] [address] System Planning Engineer: Ion Jasso MD Staging: Normal [facility] Comment on above: Result Comment: Stag e 1: Some kidney damage normal GFR Stage 2: Mild kidney damage GFR 60-89 Stage 3: Moderate kidney damage GFR 30-59 Stage 4: Severe kidney damage GFR 15-29 Stage 5: Severe kidney damage GFR <15 ESRD - chronic treatment by dialysis or transplant Performed By: #### R NAT MARCUS LIP CMPX #### [facility] [address] [place] [address] System Planning Engineer: Ion Jasso MD Urea nitrogen [Mass/Vol] 9 mg/dL Normal 6-20 [facility] Comment on above: Performed By: #### R NAT MARCUS LIP CMPX #### [facility] [address] [place] [address] System Planning Engineer: Ion Jasso MD Comprehensive Metabolic Pane l w/ Reflex to on 03-26-2020 Albumin [Mass/Vol] 4.3 g/dL 3.5 - 5.2 g/dL [place] Albumin/Globulin [Mass ratio] 1.7 {ratio} [place] ALP [Catalytic activity/Vol] 117 U/L High 35 - 104 U/L [place] ALT [Catalytic activity/Vol] 11 U/L 5 - 33 U/L [place] Anion gap [Moles/Vol] 9 mmol/L 9 - 17 mmol/L [place] AST [Catalytic activity/Vol] 18 U/L <32 [place] Bilirubin Ql (U) 0.15 mg/dL Low 0.3 - 1.2 mg/dL [place] Bun/Cre Ratio 12 [place] Calcium [Mass/Vol] 9.7 mg/dL 8.6 - 10. 4 mg/dL [place] Chloride [Moles/Vol] 102 mmol/L 98 - 10 7 mmol/L [place] CO2 [Moles/Vol] 25 mmol/L 20 - 31 mmol/L [place] Creatinine [Mass/Vol] 0.74 mg/dL 0.5 - 0.9 mg/dL [place] GFR >60 >60 mL/min [employer] GFR Non- >60 >60 mL/min [place] Glucose [Mass/Vol] 94 mg/dL 70 - 99 mg/dL [place] Potassium [Moles/Vol] 4.2 mmol/L 3.7 - 5.3 mmol/L [place] Protein [Mass/Vol] 6.8 g/dL 6.4 - 8.3 g/dL [place] Sodium [Moles/Vol] 136 mmol/L 135 - 144 mmol/L [place] Urea nitrogen [Mass/Vol] 9 mg/dL 6 - 20 mg/dL [place] Lactic Acidon 03-26-2020 Lactate [Moles/Vol] 1.3 mmol/L Normal 0.5-2.2 [facility] Comment on above: Performed By: #### C DP, LIP #### [facility] [address] [place] [address] System Planning Engineer: Zafar Castillo MD Lactate [Moles/Vol] 1.3 mmol/L 0.5 - 2. 2 mmol/L [place] Lipaseon 03-26-2020 Lipase [Catalytic activity/Vol] 225 U/L Critically high 13-60 [facility] Comment on above: Performed By: #### R EJEC, NAT, LIP, CMPX #### [facility] [address] [place] [address] System Planning Engineer: Ion Jasso MD Interpretation and review of laboratory results Abnormal [place] Lipase [Catalytic activity/Vol] 225 U/L Critically high 13 - 60 U/L [place] Metabolic Panelon 03-26-2020 GFR/1.73 sq M predicted among non-blacks MDRD (S/P/Bld) [Vol rate/Area] [place] Comment on above: Average GFR for 50-5 9 years old: 93 mL/min/1.73sq m Chronic Kidney Disease: <60 mL/min/1.73sq m Kidney failure: <15 mL/min/1.73sq m eGFR calculated using average adult body mass. Additional eGFR calculator available at: http://www.Bill[employer].com/multiple_crcl_2012.htm Stage 1: Some kidney damage normal GFR Stage 2: Mild kidney damage GFR 60-89 Stage 3: Moderate kidney damage GFR 30-59 Stage 4: Severe kidney damage GFR 15-29 Stage 5: Severe kidney damage GFR <15 ESRD - chronic treatment by dialysis or transplant Otheron 03-26-2020 Interpretation and review of laboratory results Abnormal [place] SPECIMEN REJECTIONon 021 Ordered Test CDP [place], [place] Reason for Rejection Unable to perform testing: Specimen clotted. [place] Specimen source Nom (Unsp spec) .BLOOD [place] - NOT REPORTED [place] Specimen Rejectionon 021 Reason for rejection Unable to perform testing: Specimen clotted. [facility] Comment on above: Performed By: #### R EJEC, NAT, LIP, CMPX #### [facility] [address] [place] [address] [place]. [place] [phone] System Planning Engineer: Ion Jasso MD Source of sample .BLOOD Normal [facility] Comment on above: Performed By: #### R EJEC, NAT, LIP, CMPX #### [address] [place] [phone] System Planning Engineer: Ion Jasso MD Test ordered [facility] Comment on above: Performed By: #### R EJEC, NAT, LIP, CMPX #### [address] [place], [facility] System Planning Engineer: Ion Jasso MD ----- NOT REPORTED [facility] Comment on above: Performed By: #### R EJEC, NAT, LIP, CMPX #### [address] [place] [address] System Planning Engineer: Ion Jasso MD Urinalysis, Routineon 2020 Acetoacetic Acid,Ur Negative Normal NEG [facility] Comment on above: Performed By: #### C DP, LIP #### [facility] [address] [place], [place] [id number] System Planning Engineer: Zafar Castillo MD Bilirubin, SemiQt,Ur Negative Normal [facility] Comment on above: Performed By: #### C DP, LIP #### [facility] [address] [place] [address] System Planning Engineer: Zafar Castillo MD Color (U) YELLOW Normal YEL [facility] Comment on above: Performed By: #### C DP, LIP #### [facility] [address] [place], [place] [id number] System Planning Engineer: Zafar Castillo MD Glucose Ql (U) Negative Normal NEG [facility] Comment on above: Performed By: #### C DP, LIP #### [facility] [address] [place], [place] [phone] System Planning Engineer: Zafar Castillo MD Hemoglobin, Ur Negative Normal NEG [facility] Comment on above: Performed By: #### C DP, LIP #### [facility] [address] [place], [place] [phone] System Planning Engineer: Zafar Castillo MD Leukocyte esterase Test strip Ql (U) Negative Normal [facility] Comment on above: Performed By: #### C DP, LIP #### [facility] [address] [place], [place] [phone] System Planning Engineer: Zafar Castillo MD Nitrite,Ur Negative Normal [facility] Comment on above: Performed By: #### C DP, LIP #### [facility] [address] [place], [place] [phone] System Planning Engineer: Zafar Castillo MD pH (U) 5.5 [pH] Normal 5.0-9.0 [facility] Comment on above: Performed By: #### C DP, LIP #### [facility] [address] [place], [place] [phone] System Planning Engineer: Zafar Castillo MD Protein Ql (U) Negative Normal NEG [facility] Comment on above: Performed By: #### C DP, LIP #### [facility] [address] [place] [address] System Planning Engineer: Zafar Castillo MD Specific gravity (U) [Rel density] 1.010 Normal 1.010-1.020 [facility] Comment on above: Performed By: #### C DP, LIP #### [facility] [address] [place], [place] [phone] System Planning Engineer: Zafar Castillo MD Turbidity CLEAR Normal CLEAR [facility] Comment on above: Performed By: #### C DP, LIP #### [address] [place] [address] System Planning Engineer: Zafar Castillo MD Urobilinogen,Ur Normal Normal NORM [facility] Comment on above: Performed By: #### C DP, LIP #### [facility] [address] [place] [address] Dr. [place], [place] [phone] System Planning Engineer: Zafar Castillo MD Comment NOT REPORTED Normal [facility] Comment on above: Performed By: #### C DP, LIP #### [facility] [address] [place] [address] Dr. [place], [place] [phone] System Planning Engineer: Zafar Castillo MD Urinalysis, reflex to micros copicon 03-26-2020 Bilirubin Urine Negative NEGATIVE [facility] [place] Color, UA YELLOW YELLOW [facility] Glucose, Ur Negative NEGATIVE [facility] Ketones Ql (U) Negative NEGATIVE [facility] [place] Leukocyte esterase Test strip Ql (U) Negative NEGATIVE [facility] Nitrite, Urine Negative NEGATIVE [facility] [place] pH, UA 5.5 [facility] [place] Protein (U) [Mass/Vol] Negative NEGATIVE [facility] Specific [place], UA 1.010 [facility] Turbidity UA CLEAR CLEAR [facility] [place] Urinalysis Comments NOT REPORTED [place] Urine Hgb Negative NEGATIVE [place] Urobilinogen, Urine Normal Normal [place] CBC auto differentialon 08-07 Basophils (Bld) [#/Vol] 0.04 10*3/uL [place] Basophils/100 WBC (Bld) 1 % 0 - 2 % [place] Differential Type NOT REPORTED [place] Eosinophils (Bld) [#/Vol] 0.10 10*3/uL [place] Eosinophils/100 WBC (Bld) 1 % 1 - 4 % [place] Erythrocyte distribution width (RBC) [Ratio] 13.0 % 11.8 - 14.4 % [place] Hematocrit (Bld) [Volume fraction] 35.2 % Low 36.3 - 47.1 % [place] Hemoglobin (Bld) [Mass/Vol] 11.7 g/dL Low 11.9 - 15.1 g/dL [place] Immature granulocytes (Bld) [#/Vol] 10*3/uL [place] Immature granulocytes (Bld) [#/Vol] 0 % 0 [place] Interpretation and review of laboratory results Abnormal [place] Lymphocytes (Bld) [#/Vol] 1.87 10*3/uL [place] Lymphocytes/100 WBC (Bld) 22 % Low 24 - 43 % [place] MCH (RBC) [Entitic mass] 32.5 pg 25.2 - 33.5 pg [place] MCHC (RBC) [Mass/Vol] 33.2 g/dL 28.4 - 34.8 g/dL [place] MCV (RBC) [Entitic vol] 97.8 fL 82.6 - 102.9 fL [place] Monocytes (Bld) [#/Vol] 0.86 10*3/uL [place] Monocytes/100 WBC (Bld) 10 % 3 - 12 % [place] Platelet mean volume (Bld) [Entitic vol] 9.8 fL 8.1 - 13.5 fL [place] Platelets (Bld) [#/Vol] 178 10*3/uL [place] RBC (Bld) [#/Vol] 3.60 10*6/uL Low 3.95 - 5.1 1 m/uL [place] Segmented neutrophils/100 WBC (Bld) 66 % High 36 - 65 % [place] Segs Absolute 5.53 [place] WBC (Bld) [#/Vol] 0.0 10*3/uL 0.0 per 10 0 WBC [place] WBC (Bld) [#/Vol] 8.4 10*3/uL [place] CBC with Diffon 08-25-2019 Abs. Basophil 0.04 k/uL Normal 0.00-0.20 [facility] Comment on above: Performed By: #### C DP, LIP #### [facility] [address] [place] [address] Dr. [place] [phone] System Planning Engineer: Zafar Castillo MD Abs.Imm.Granulocyte <0.03 Normal 0.00-0.30 [facility] Comment on above: Performed By: #### C DP, LIP #### [address] [place] [phone] System Planning Engineer: Zafar Castillo MD Abs.Neutrophil (Seg) 5.53 k/uL Normal 1.50-8.10 [facility] Comment on above: Performed By: #### C DP, LIP #### [address] [place] [address] System Planning Engineer: Zafar Castillo MD Basophils/100 WBC (Bld) 1 % Normal 0-2 [facility] Comment on above: Performed By: #### C DP, LIP #### [address] [place] [phone] System Planning Engineer: Zafar Castillo MD Eosinophils (Bld) [#/Vol] 0.10 10*3/uL Normal 0.00-0.44 [facility] Comment on above: Performed By: #### C DP, LIP #### [facility] [address] [place], [place] [address] System Planning Engineer: Zafar Castillo MD Eosinophils/100 WBC (Bld) 1 % Normal 1-4 [facility] Comment on above: Performed By: #### C DP, LIP #### [facility] [address] [place], [facility] System Planning Engineer: Zafar Castillo MD Erythrocyte distribution width (RBC) [Ratio] 13.0 % Normal 11.8-14.4 [facility] Comment on above: Performed By: #### C DP, LIP #### [facility] [address] [place], [facility] System Planning Engineer: Zafar Castillo MD Hematocrit (Bld) [Volume fraction] 35.2 % Low 36.3-47.1 [facility] Comment on above: Performed By: #### C DP, LIP #### [address] [place], [facility] System Planning Engineer: Zafar Castillo MD Hemoglobin (Bld) [Mass/Vol] 11.7 g/dL Low 11.9-15.1 [facility] Comment on above: Performed By: #### C DP, LIP #### [facility] [address] [place], [place] [address] System Planning Engineer: Zafar Castillo MD Immature granulocytes (Bld) [#/Vol] 0 % Normal 0 [facility] Comment on above: Performed By: #### C DP, LIP #### [facility] [address] [place], [facility] System Planning Engineer: Zafar Castillo MD Lymphocytes (Bld) [#/Vol] 1.87 10*3/uL Normal 1.10-3.70 [facility] Comment on above: Performed By: #### C DP, LIP #### [facility] [address] [place] [address] System Planning Engineer: Zafar Castillo MD Lymphocytes/100 WBC (Bld) 22 % Low 24-43 [facility] Comment on above: Performed By: #### C DP, LIP #### [facility] [address] [place] [phone] System Planning Engineer: Zafar Castillo MD MCH (RBC) [Entitic mass] 32.5 pg Normal 25.2-33.5 [facility] Comment on above: Performed By: #### C DP, LIP #### [facility] [address] [place] [address] System Planning Engineer: Zafar Castillo MD MCHC (RBC) [Mass/Vol] 33.2 g/dL Normal 28.4-34.8 [facility] Comment on above: Performed By: #### C DP, LIP #### [facility] [address] [place] [address] System Planning Engineer: Zafar Castillo MD MCV (RBC) [Entitic vol] 97.8 fL Normal 82.6-102.9 [facility] Comment on above: Performed By: #### C DP, LIP #### [facility] [address] [place] [phone] System Planning Engineer: Zafar Castillo MD Monocytes (Bld) [#/Vol] 0.86 10*3/uL Normal 0.10-1.20 [facility] Comment on above: Performed By: #### C DP, LIP #### [facility] [address] [place], [facility] System Planning Engineer: Zafar Castillo MD Monocytes/100 WBC (Bld) 10 % Normal 3-12 [facility] Comment on above: Performed By: #### C DP, LIP #### [facility] [address] [place] [phone] System Planning Engineer: Zafar Castillo MD Neutrophil (Seg) 66 % High 36-65 [facility] Comment on above: Performed By: #### C DP, LIP #### [facility] [address] [place] [address] System Planning Engineer: Zafar Castillo MD NRBC Automated 0.0 per 100 WBC Normal 0.0 [facility] Comment on above: Performed By: #### C DP, LIP #### [facility] [address] [place], [facility] System Planning Engineer: Zafar Castillo MD Platelet mean volume (Bld) [Entitic vol] 9.8 fL Normal 8.1-13.5 [facility] Comment on above: Performed By: #### C DP, LIP #### [facility] [address] [place], [facility] System Planning Engineer: Zafar Castillo MD Platelets (Bld) [#/Vol] 178 10*3/uL Normal 138-453 [facility] Comment on above: Performed By: #### C DP, LIP #### [facility] [address] [place] [address] System Planning Engineer: Zafar Castillo MD RBC (Bld) [#/Vol] 3.60 10*6/uL Low 3.95-5.11 [facility] Comment on above: Performed By: #### C DP, LIP #### [facility] [address] [place], [facility] System Planning Engineer: Zafar Castillo MD WBC (Bld) [#/Vol] 8.4 10*3/uL Normal 3.5-11.3 [facility] Comment on above: Performed By: #### C DP, LIP #### [facility] [address] [place], [place] [id number] (536 System Planning Engineer: Zafar Castillo MD Auto Diff Performed NOT REPORTED Normal [facility] Comment on above: Performed By: #### C DP, LIP #### [facility] [address] [place], [place] [phone] System Planning Engineer: Zafar Castillo MD Platelets (Bld) [#/Vol] NOT REPORTED Normal [place] Comment on above: Performed By: #### C DP, LIP #### [facility] [address] [place], [place] 3205383 System Planning Engineer: Zafar Castillo MD RBC morphology finding Nom (Bld) NOT REPORTED Normal [place] Comment on above: Performed By: #### C DP, LIP #### [facility] [address] [place], [place] 6875083 System Planning Engineer: Zafar Castillo MD WBC Morphology NOT REPORTED Normal [place] Comment on above: Performed By: #### C DP, LIP #### [facility] [address] [place] [phone] System Planning Engineer: Zafar Castillo MD Lipaseon 08-25-2019 Lipase [Catalytic activity/Vol] 42 U/L Normal 13-60 [facility] Comment on above: Performed By: #### C DP, LIP #### [facility] [address] [place], [place] [phone] System Planning Engineer: Zafar Castillo MD Lipase [Catalytic activity/Vol] 42 U/L 13 - 60 U/L [place] CBC auto differentialon 08-07 Basophils (Bld) [#/Vol] 0.04 10*3/uL [place] Basophils/100 WBC (Bld) 1 % 0 - 2 % [place] Differential Type NOT REPORTED [place] Eosinophils (Bld) [#/Vol] 0.08 10*3/uL [place] Eosinophils/100 WBC (Bld) 1 % 1 - 4 % [place] Erythrocyte distribution width (RBC) [Ratio] 12.9 % 11.8 - 14.4 % [place] Hematocrit (Bld) [Volume fraction] 35.9 % Low 36.3 - 47.1 % [place] Hemoglobin (Bld) [Mass/Vol] 11.9 g/dL 11.9 - 15.1 g/dL [place] Immature granulocytes (Bld) [#/Vol] 0 % 0 [place] Immature granulocytes (Bld) [#/Vol] 0.03 10*3/uL [place] Interpretation and review of laboratory results Abnormal [place] Lymphocytes (Bld) [#/Vol] 1.79 10*3/uL [place] Lymphocytes/100 WBC (Bld) 22 % Low 24 - 43 % [place] MCH (RBC) [Entitic mass] 32.3 pg 25.2 - 33.5 pg [place] MCHC (RBC) [Mass/Vol] 33.1 g/dL 28.4 - 34.8 g/dL [place] MCV (RBC) [Entitic vol] 97.6 fL 82.6 - 102.9 fL [place] Monocytes (Bld) [#/Vol] 0.75 10*3/uL [place] Monocytes/100 WBC (Bld) 9 % 3 - 12 % [place] Platelet mean volume (Bld) [Entitic vol] 10.1 fL 8.1 - 13.5 fL [place] Platelets (Bld) [#/Vol] 176 10*3/uL [place] Platelets (Bld) [#/Vol] NOT REPORTED [place] RBC (Bld) [#/Vol] 3.68 10*6/uL Low 3.95 - 5.1 1 m/uL [place] RBC morphology finding Nom (Bld) NOT REPORTED [place] Segmented neutrophils/100 WBC (Bld) 67 % High 36 - 65 % [place] Segs Absolute 5.61 [place] WBC (Bld) [#/Vol] 0.0 10*3/uL 0.0 per 10 0 WBC [place] WBC (Bld) [#/Vol] 8.3 10*3/uL [facility] [place] WBC Morphology NOT REPORTED [place] CBC with Diffon 08-24-2019 Abs. Basophil 0.04 k/uL Normal 0.00-0.20 [facility] Comment on above: Performed By: #### C DP, LIP #### [facility] [address] [place] [phone] System Planning Engineer: Zafar Castillo MD Abs.Imm.Granulocyte 0.03 k/uL Normal 0.00-0.30 [facility] Comment on above: Performed By: #### C DP, LIP #### [facility] [address] [place] [address] System Planning Engineer: Zafar Castillo MD Abs.Neutrophil (Seg) 5.61 k/uL Normal 1.50-8.10 [facility] Comment on above: Performed By: #### C DP, LIP #### [address] [place] [phone] System Planning Engineer: Zafar Castillo MD Basophils/100 WBC (Bld) 1 % Normal 0-2 [facility] Comment on above: Performed By: #### C DP, LIP #### [address] [place], [facility] System Planning Engineer: Zafar Castillo MD Eosinophils (Bld) [#/Vol] 0.08 10*3/uL Normal 0.00-0.44 [facility] Comment on above: Performed By: #### C DP, LIP #### [facility] [address] [place], [place] [phone] System Planning Engineer: Zafar Castillo MD Eosinophils/100 WBC (Bld) 1 % Normal 1-4 [facility] Comment on above: Performed By: #### C DP, LIP #### [facility] [address] [place] [address] System Planning Engineer: Zafar Castillo MD Erythrocyte distribution width (RBC) [Ratio] 12.9 % Normal 11.8-14.4 [facility] Comment on above: Performed By: #### C DP, LIP #### [facility] [address] [place], [facility] System Planning Engineer: Zafar Castillo MD Hematocrit (Bld) [Volume fraction] 35.9 % Low 36.3-47.1 [facility] Comment on above: Performed By: #### C DP, LIP #### [facility] [address] [place], [facility] System Planning Engineer: Zafar Castillo MD Hemoglobin (Bld) [Mass/Vol] 11.9 g/dL Normal 11.9-15.1 [facility] Comment on above: Performed By: #### C DP, LIP #### [address] [place], [facility] System Planning Engineer: Zafar Castillo MD Immature granulocytes (Bld) [#/Vol] 0 % Normal 0 [facility] Comment on above: Performed By: #### C DP, LIP #### [address] [place], [place] [address] System Planning Engineer: Zafar Castillo MD Lymphocytes (Bld) [#/Vol] 1.79 10*3/uL Normal 1.10-3.70 [facility] Comment on above: Performed By: #### C DP, LIP #### [facility] [address] [place], [place] [address] System Planning Engineer: Zafar Castillo MD Lymphocytes/100 WBC (Bld) 22 % Low 24-43 [facility] Comment on above: Performed By: #### C DP, LIP #### [facility] [address] [place] [phone] System Planning Engineer: Zafar Castillo MD MCH (RBC) [Entitic mass] 32.3 pg Normal 25.2-33.5 [facility] Comment on above: Performed By: #### C DP, LIP #### [facility] [address] [place] [address] System Planning Engineer: Zafar Castillo MD MCHC (RBC) [Mass/Vol] 33.1 g/dL Normal 28.4-34.8 [facility] Comment on above: Performed By: #### C DP, LIP #### [facility] [address] [place], [facility] System Planning Engineer: Zafar Castillo MD MCV (RBC) [Entitic vol] 97.6 fL Normal 82.6-102.9 [facility] Comment on above: Performed By: #### C DP, LIP #### [facility] [address] [place], [facility] System Planning Engineer: Zafar Castillo MD Monocytes (Bld) [#/Vol] 0.75 10*3/uL Normal 0.10-1.20 [facility] Comment on above: Performed By: #### C DP, LIP #### [facility] [address] [place], [place] [phone] System Planning Engineer: Zafar Castillo MD Monocytes/100 WBC (Bld) 9 % Normal 3-12 [facility] Comment on above: Performed By: #### C DP, LIP #### [facility] [address] [place], [place] [phone] System Planning Engineer: Zafar Castillo MD Neutrophil (Seg) 67 % High 36-65 [facility] Comment on above: Performed By: #### C DP, LIP #### [facility] [address] [place], [place] [id number] System Planning Engineer: Zafar Castillo MD NRBC Automated 0.0 per 100 WBC Normal 0.0 [facility] Comment on above: Performed By: #### C DP, LIP #### [facility] [address] [place], [facility] System Planning Engineer: Zafar Castillo MD Platelet mean volume (Bld) [Entitic vol] 10.1 fL Normal 8.1-13.5 [facility] Comment on above: Performed By: #### C DP, LIP #### [facility] [address] [place] [address] System Planning Engineer: Zafar Castillo MD Platelets (Bld) [#/Vol] 176 10*3/uL Normal 138-453 [facility] Comment on above: Performed By: #### C DP, LIP #### [facility] [address] [place] [address] System Planning Engineer: Zafar Castillo MD RBC (Bld) [#/Vol] 3.68 10*6/uL Low 3.95-5.11 [facility] Comment on above: Performed By: #### C DP, LIP #### [facility] [address] [address] [place], [facility]83 System Planning Engineer: Zafar Castillo MD WBC (Bld) [#/Vol] 8.3 10*3/uL Normal 3.5-11.3 [facility] Comment on above: Performed By: #### C DP, LIP #### [facility] [address] [place] [address] System Planning Engineer: Zafar Castillo MD Auto Diff Performed NOT REPORTED Normal [facility] Comment on above: Performed By: #### C DP, LIP #### [facility] [address] [place] [address] System Planning Engineer: Zafar Castillo MD Platelets (Bld) [#/Vol] NOT REPORTED Normal [facility] Comment on above: Performed By: #### C DP, LIP #### [facility] [address] [place] [address] System Planning Engineer: Zafar Castillo MD RBC morphology finding Nom (Bld) NOT REPORTED Normal [facility] Comment on above: Performed By: #### C DP, LIP #### [facility] [address] [place], [place] [id number] System Planning Engineer: Zafar Castillo MD WBC Morphology NOT REPORTED Normal [facility] Comment on above: Performed By: #### C DP, LIP #### [facility] [address] [place], [place] [id number] System Planning Engineer: Zafar Castillo MD Lipaseon 08-24-2019 Lipase [Catalytic activity/Vol] 69 U/L High 13-60 [facility] Comment on above: Performed By: #### C DP, LIP #### [facility] [address] [place] [address] System Planning Engineer: Zafar Castillo MD Interpretation and review of laboratory results Abnormal [place] Lipase [Catalytic activity/Vol] 69 U/L High 13 - 60 U/L [place] CBC auto differentialon 08-07 Basophils (Bld) [#/Vol] 0.05 10*3/uL [place] Basophils/100 WBC (Bld) 1 % 0 - 2 % [place] Differential Type NOT REPORTED [place] Eosinophils (Bld) [#/Vol] 0.13 10*3/uL [place] Eosinophils/100 WBC (Bld) 2 % 1 - 4 % [place] Erythrocyte distribution width (RBC) [Ratio] 13.2 % 11.8 - 14.4 % [place] Hematocrit (Bld) [Volume fraction] 36.7 % 36.3 - 47.1 % [place] Hemoglobin (Bld) [Mass/Vol] 11.8 g/dL Low 11.9 - 15.1 g/dL [place] Immature granulocytes (Bld) [#/Vol] 0 % 0 [place] Immature granulocytes (Bld) [#/Vol] 10*3/uL [place] Interpretation and review of laboratory results Abnormal [place] Lymphocytes (Bld) [#/Vol] 2.39 10*3/uL [place] Lymphocytes/100 WBC (Bld) 28 % 24 - 43 % [place] MCH (RBC) [Entitic mass] 32.1 pg 25.2 - 33.5 pg [place] MCHC (RBC) [Mass/Vol] 32.2 g/dL 28.4 - 34.8 g/dL [place] MCV (RBC) [Entitic vol] 99.7 fL 82.6 - 102.9 fL [place] Monocytes (Bld) [#/Vol] 0.77 10*3/uL [place] Monocytes/100 WBC (Bld) 9 % 3 - 12 % [place] Platelet mean volume (Bld) [Entitic vol] 10.1 fL 8.1 - 13.5 fL [place] Platelets (Bld) [#/Vol] 174 10*3/uL [place] Platelets (Bld) [#/Vol] NOT REPORTED [place] RBC (Bld) [#/Vol] 3.68 10*6/uL Low 3.95 - 5.1 1 m/uL [place] RBC morphology finding Nom (Bld) NOT REPORTED [place] Segmented neutrophils/100 WBC (Bld) 60 % 36 - 65 % [place] Segs Absolute 5.22 [place] WBC (Bld) [#/Vol] 0.0 10*3/uL 0.0 per 10 0 WBC [place] WBC (Bld) [#/Vol] 8.6 10*3/uL [place] WBC Morphology NOT REPORTED [place] CBC with Diffon 08-23-2019 Abs. Basophil 0.05 k/uL Normal 0.00-0.20 [facility] Comment on above: Performed By: #### C DP, LIP #### [facility] [address] [place] [address] System Planning Engineer: Zafar Castillo MD Abs.Imm.Granulocyte <0.03 Normal 0.00-0.30 [facility] Comment on above: Performed By: #### C DP, LIP #### [facility] [address] [place], [place] [address] System Planning Engineer: Zafar Castillo MD Abs.Neutrophil (Seg) 5.22 k/uL Normal 1.50-8.10 [facility] Comment on above: Performed By: #### C DP, LIP #### [facility] [address] [place], [place] [address] System Planning Engineer: Zafar Castillo MD Basophils/100 WBC (Bld) 1 % Normal 0-2 [facility] Comment on above: Performed By: #### C DP, LIP #### [facility] [address] [place], [place] [address] System Planning Engineer: Zafar Castillo MD Eosinophils (Bld) [#/Vol] 0.13 10*3/uL Normal 0.00-0.44 [facility] Comment on above: Performed By: #### C DP, LIP #### [facility] [address] [place] [address] System Planning Engineer: Zafar Castillo MD Eosinophils/100 WBC (Bld) 2 % Normal 1-4 [facility] Comment on above: Performed By: #### C DP, LIP #### [address] [place] [id number] System Planning Engineer: Zafar Castillo MD Erythrocyte distribution width (RBC) [Ratio] 13.2 % Normal 11.8-14.4 [facility] Comment on above: Performed By: #### C DP, LIP #### [facility] [address] [place] [address] System Planning Engineer: Zafar Castillo MD Hematocrit (Bld) [Volume fraction] 36.7 % Normal 36.3-47.1 [facility] Comment on above: Performed By: #### C DP, LIP #### [facility] [address] [place], [place] [address] System Planning Engineer: Zafar Castillo MD Hemoglobin (Bld) [Mass/Vol] 11.8 g/dL Low 11.9-15.1 [facility] Comment on above: Performed By: #### C DP, LIP #### [facility] [address] [place], [place] [id number] System Planning Engineer: Zafar Castillo MD Immature granulocytes (Bld) [#/Vol] 0 % Normal 0 [facility] Comment on above: Performed By: #### C DP, LIP #### [facility] [address] [place], [place] 5159783 System Planning Engineer: Zafar Castillo MD Lymphocytes (Bld) [#/Vol] 2.39 10*3/uL Normal 1.10-3.70 [facility] Comment on above: Performed By: #### C DP, LIP #### [address] [place], [facility]83 System Planning Engineer: Zafar Castillo MD Lymphocytes/100 WBC (Bld) 28 % Normal 24-43 [facility] Comment on above: Performed By: #### C DP, LIP #### [address] [place] [id number] System Planning Engineer: Zafar Castillo MD MCH (RBC) [Entitic mass] 32.1 pg Normal 25.2-33.5 [facility] Comment on above: Performed By: #### C DP, LIP #### [address] [place], [place] [address]83 System Planning Engineer: Zafar Castillo MD MCHC (RBC) [Mass/Vol] 32.2 g/dL Normal 28.4-34.8 [facility] Comment on above: Performed By: #### C DP, LIP #### [address] [place], [place] 7923383 System Planning Engineer: Zafar Castillo MD MCV (RBC) [Entitic vol] 99.7 fL Normal 82.6-102.9 [facility] Comment on above: Performed By: #### C DP, LIP #### [facility] [address] [place], [place] 4752483 System Planning Engineer: Zafar Castillo MD Monocytes (Bld) [#/Vol] 0.77 10*3/uL Normal 0.10-1.20 [facility] Comment on above: Performed By: #### C DP, LIP #### [facility] [address] [place], [place] [phone] System Planning Engineer: Zafar Castillo MD Monocytes/100 WBC (Bld) 9 % Normal 3-12 [facility] Comment on above: Performed By: #### C DP, LIP #### [facility] [address] [place], [place] [id number] System Planning Engineer: Zafar Castillo MD Neutrophil (Seg) 60 % Normal 36-65 [facility] Comment on above: Performed By: #### C DP, LIP #### [facility] [address] [place], [place] 3593783 System Planning Engineer: Zafar Castillo MD NRBC Automated 0.0 per 100 WBC Normal 0.0 [facility] Comment on above: Performed By: #### C DP, LIP #### [facility] [address] [place], [place] 9[address]2383 System Planning Engineer: Zafar Castillo MD Platelet mean volume (Bld) [Entitic vol] 10.1 fL Normal 8.1-13.5 [facility] Comment on above: Performed By: #### C DP, LIP #### [facility] [address] [place], [place] 3018883 System Planning Engineer: Zafar Castillo MD Platelets (Bld) [#/Vol] 174 10*3/uL Normal 138-453 [facility] Comment on above: Performed By: #### C DP, LIP #### [facility] [address] [place] [facility]83 System Planning Engineer: Zafar Castillo MD RBC (Bld) [#/Vol] 3.68 10*6/uL Low 3.95-5.11 [facility] Comment on above: Performed By: #### C DP, LIP #### [facility] [address] [place], [place] [id number] System Planning Engineer: Zafar Castillo MD WBC (Bld) [#/Vol] 8.6 10*3/uL Normal 3.5-11.3 [facility] Comment on above: Performed By: #### C DP, LIP #### [facility] [address] [place] [id number] System Planning Engineer: Zafar Castillo MD Auto Diff Performed NOT REPORTED Normal [facility] Comment on above: Performed By: #### C DP, LIP #### [facility] [address] [place], [facility]83 System Planning Engineer: Zafar Castillo MD Platelets (Bld) [#/Vol] NOT REPORTED Normal [facility] Comment on above: Performed By: #### C DP, LIP #### [facility] [address] [place] [id number] System Planning Engineer: Zafar Castillo MD RBC morphology finding Nom (Bld) NOT REPORTED Normal [facility] Comment on above: Performed By: #### C DP, LIP #### [facility] [address] [place], [facility]83 System Planning Engineer: Zafar Castillo MD WBC Morphology NOT REPORTED Normal [facility] Comment on above: Performed By: #### C DP, LIP #### [facility] [address] [place] [address] System Planning Engineer: Zafar Castillo MD Comp Metabolic Profon 2019 (cont.) Normal [facility] Comment on above: Result Comment: Aver age GFR for 50-59 years old: 93 mL/min/1.73sq m Chronic Kidney Disease: <60 mL/min/1.73sq m Kidney failure: <15 mL/min/1.73sq m eGFR calculated using average adult body mass. Additional eGFR calculator available at: http://www.Billogram.HardMetrics/multiple_crcl_2012.htm Performed By: #### C DP, LIP #### [facility] [address] [place], [place] [id number] System Planning Engineer: Zafar Castillo MD Albumin [Mass/Vol] 3.4 g/dL Low 3.5-5.2 [facility] Comment on above: Performed By: #### C DP, LIP #### [facility] [address] [place], [place] 1462583 System Planning Engineer: Zafar Castillo MD Albumin/Globulin [Mass ratio] 1.7 {ratio} Normal 1.0-2.5 [facility] Comment on above: Performed By: #### C DP, LIP #### [facility] [address] [place], [place] 2886583 System Planning Engineer: Zafar Castillo MD Alkaline Phos 102 U/L Normal 35-104 [facility] Comment on above: Performed By: #### C DP, LIP #### [facility] [address] [place], [place] 5606583 System Planning Engineer: Zafar Castillo MD ALT [Catalytic activity/Vol] 34 U/L High 5-33 [facility] Comment on above: Performed By: #### C DP, LIP #### [facility] [address] [place], [place] 9576783 System Planning Engineer: Zafar Castillo MD Anion gap [Moles/Vol] 7 mmol/L Low 9-17 [facility] Comment on above: Performed By: #### C DP, LIP #### [facility] [address] [place], [place] 7046483 System Planning Engineer: Zafar Castillo MD AST [Catalytic activity/Vol] 95 U/L High <32 [facility] Comment on above: Performed By: #### C DP, LIP #### [facility] [address] [place], [place] 2112983 System Planning Engineer: Zafar Castillo MD Bilirubin Ql (U) 0.46 mg/dL Normal 0.3-1.2 [facility] Comment on above: Performed By: #### C DP, LIP #### [facility] [address] [place], [place] 8305783 System Planning Engineer: Zafar Castillo MD BUN/CRE Ratio 11 Normal 9-20 [facility] Comment on above: Performed By: #### C DP, LIP #### [facility] [address] [place], [place] [address]3083 System Planning Engineer: Zafar Castillo MD Calcium [Mass/Vol] 8.4 mg/dL Low 8.6-10.4 [facility] Comment on above: Performed By: #### C DP, LIP #### [facility] [address] [place] [address] System Planning Engineer: Zafar Castillo MD Chloride [Moles/Vol] 109 mmol/L High 98-107 [facility] Comment on above: Performed By: #### C DP, LIP #### [facility] [address] [place] [address] System Planning Engineer: Zafar Castillo MD CO2 [Moles/Vol] 22 mmol/L Normal 20-31 [facility] Comment on above: Performed By: #### C DP, LIP #### [facility] [address] [place], [place] 3397783 System Planning Engineer: Zafar Castillo MD Creatinine [Mass/Vol] 0.66 mg/dL Normal 0.50-0.90 [facility] Comment on above: Performed By: #### C DP, LIP #### [facility] [address] [place], [place] 4103383 System Planning Engineer: Zafar Castillo MD GFR, Amer >60 Normal >60 [facility] Comment on above: Performed By: #### C DP, LIP #### [facility] [address] [place] 24[address]83 System Planning Engineer: Zafar Castillo MD GFR,non Amer >60 Normal >60 [facility] Comment on above: Performed By: #### C DP, LIP #### [facility] [address] [place], [place] 2124383 System Planning Engineer: Zafar Castillo MD Glucose [Mass/Vol] 89 mg/dL Normal 70-99 [facility] Comment on above: Performed By: #### C DP, LIP #### [facility] [address] [place], [place] 3796283 System Planning Engineer: Zafar Castillo MD Potassium [Moles/Vol] 4.3 mmol/L Normal 3.7-5.3 [facility] Comment on above: Performed By: #### C DP, LIP #### [facility] [address] [place], [place] 5834283 System Planning Engineer: Zafar Castillo MD Protein [Mass/Vol] 5.4 g/dL Low 6.4-8.3 [facility] Comment on above: Performed By: #### C DP, LIP #### [facility] [address] [place], [place] 3933583 System Planning Engineer: Zafar Castillo MD Sodium [Moles/Vol] 138 mmol/L Normal 135-144 [facility] Comment on above: Performed By: #### C DP, LIP #### [facility] [address] [place] [address] System Planning Engineer: Zafar Castillo MD Staging: Normal [facility] Comment on above: Result Comment: Stag e 1: Some kidney damage normal GFR Stage 2: Mild kidney damage GFR 60-89 Stage 3: Moderate kidney damage GFR 30-59 Stage 4: Severe kidney damage GFR 15-29 Stage 5: Severe kidney damage GFR <15 ESRD - chronic treatment by dialysis or transplant Performed By: #### C DP, LIP #### [facility] [address] [place] [address] System Planning Engineer: Zafar Castillo MD Urea nitrogen [Mass/Vol] 7 mg/dL Normal 6-20 [facility] Comment on above: Performed By: #### C DP, LIP #### [facility] [address] [place] [address] System Planning Engineer: Zafar Castillo MD Comprehensive metabolic pane [facility] 08-23-2019 Albumin [Mass/Vol] 3.4 g/dL Low 3.5 - 5.2 g/dL [place] Albumin/Globulin [Mass ratio] 1.7 {ratio} [place] ALP [Catalytic activity/Vol] 102 U/L 35 - 104 U/L [place] ALT [Catalytic activity/Vol] 34 U/L High 5 - 33 U/L [place] Anion gap [Moles/Vol] 7 mmol/L Low 9 - 17 mmol/L [place] AST [Catalytic activity/Vol] 95 U/L High <32 [place] Bilirubin Ql (U) 0.46 mg/dL 0.3 - 1.2 mg/dL [place] Bun/Cre Ratio 11 [place] Calcium [Mass/Vol] 8.4 mg/dL Low 8.6 - 10. 4 mg/dL [place] Chloride [Moles/Vol] 109 mmol/L High 98 - 10 7 mmol/L [place] CO2 [Moles/Vol] 22 mmol/L 20 - 31 mmol/L [place] Creatinine [Mass/Vol] 0.66 mg/dL 0.5 - 0.9 mg/dL [place] GFR >60 >60 mL/min [employer] GFR Non- >60 >60 mL/min [place] Glucose [Mass/Vol] 89 mg/dL 70 - 99 mg/dL [place] Potassium [Moles/Vol] 4.3 mmol/L 3.7 - 5.3 mmol/L [place] Protein [Mass/Vol] 5.4 g/dL Low 6.4 - 8.3 g/dL [place] Sodium [Moles/Vol] 138 mmol/L 135 - 144 mmol/L [place] Urea nitrogen [Mass/Vol] 7 mg/dL 6 - 20 mg/dL [place] Lipaseon 08-23-2019 Lipase [Catalytic activity/Vol] 96 U/L High 13-60 [facility] Comment on above: Performed By: #### C DP, LIP #### [facility] [address] [place] [address] System Planning Engineer: Zafar Castillo MD Lipase [Catalytic activity/Vol] 96 U/L High 13 - 60 U/L [place] Metabolic Panelon 08-23-2019 GFR/1.73 sq M predicted among non-blacks MDRD (S/P/Bld) [Vol rate/Area] [place] Comment on above: Stage 1: Some [...] body mass. Additional eGFR calculator available at: http://www.Billogram.HardMetrics/multiple_crcl_2012.htm Otheron 08-23-2019 Interpretation and review of laboratory results Abnormal [place] CBC Auto Differentialon 08-07 Basophils (Bld) [#/Vol] 0.06 10*3/uL [place] Basophils/100 WBC (Bld) 1 % 0 - 2 % [place] Differential Type NOT REPORTED [place] Eosinophils (Bld) [#/Vol] 0.11 10*3/uL [place] Eosinophils/100 WBC (Bld) 1 % 1 - 4 % [place] Erythrocyte distribution width (RBC) [Ratio] 13.2 % 11.8 - 14.4 % [place] Hematocrit (Bld) [Volume fraction] 41.8 % 36.3 - 47.1 % [place] Hemoglobin (Bld) [Mass/Vol] 13.7 g/dL 11.9 - 15.1 g/dL [place] Immature granulocytes (Bld) [#/Vol] 0.03 10*3/uL [place] Immature granulocytes (Bld) [#/Vol] 0 % 0 [place] Interpretation and review of laboratory results Abnormal [place] Lymphocytes (Bld) [#/Vol] 2.23 10*3/uL [place] Lymphocytes/100 WBC (Bld) 24 % 24 - 43 % [place] MCH (RBC) [Entitic mass] 32.6 pg 25.2 - 33.5 pg [place] MCHC (RBC) [Mass/Vol] 32.8 g/dL 28.4 - 34.8 g/dL [place] MCV (RBC) [Entitic vol] 99.5 fL 82.6 - 102.9 fL [place] Monocytes (Bld) [#/Vol] 0.72 10*3/uL [place] Monocytes/100 WBC (Bld) 8 % 3 - 12 % [place] Platelet mean volume (Bld) [Entitic vol] 10.0 fL 8.1 - 13.5 fL [place] Platelets (Bld) [#/Vol] NOT REPORTED [place] Platelets (Bld) [#/Vol] 213 10*3/uL [place] RBC (Bld) [#/Vol] 4.20 10*6/uL 3.95 - 5.1 1 m/uL [place] RBC morphology finding Nom (Bld) NOT REPORTED [place] Segmented neutrophils/100 WBC (Bld) 66 % High 36 - 65 % [place] Segs Absolute 6.22 [place] WBC (Bld) [#/Vol] 0.0 10*3/uL 0.0 per 10 0 WBC [place] WBC (Bld) [#/Vol] 9.4 10*3/uL [place] WBC Morphology NOT REPORTED [place] CBC with Diffon 08-22-2019 Abs. Basophil 0.06 k/uL Normal 0.00-0.20 [facility] Comment on above: Performed By: #### C P, CDP, LIP #### [address] [place] [id number] System Planning Engineer: Zafar Castillo MD Abs.Imm.Granulocyte 0.03 k/uL Normal 0.00-0.30 [facility] Comment on above: Performed By: #### C P, CDP, LIP #### [address] [place] [id number] System Planning Engineer: Zafar Castillo MD Abs.Neutrophil (Seg) 6.22 k/uL Normal 1.50-8.10 [facility] Comment on above: Performed By: #### C P, CDP, LIP #### [address] [place] [phone] System Planning Engineer: Zafar Castillo MD Basophils/100 WBC (Bld) 1 % Normal 0-2 [facility] Comment on above: Performed By: #### C P, CDP, LIP #### [address] [place] [address] System Planning Engineer: Zafar Castillo MD Eosinophils (Bld) [#/Vol] 0.11 10*3/uL Normal 0.00-0.44 [facility] Comment on above: Performed By: #### C P, CDP, LIP #### [address] [place], [place] [address] System Planning Engineer: Zafar Castillo MD Eosinophils/100 WBC (Bld) 1 % Normal 1-4 [facility] Comment on above: Performed By: #### C P, CDP, LIP #### [facility] [address] [place], [facility]83 System Planning Engineer: Zafar Castillo MD Erythrocyte distribution width (RBC) [Ratio] 13.2 % Normal 11.8-14.4 [facility] Comment on above: Performed By: #### C P, CDP, LIP #### [facility] [address] [place], [place] [address] System Planning Engineer: Zafar Castillo MD Hematocrit (Bld) [Volume fraction] 41.8 % Normal 36.3-47.1 [facility] Comment on above: Performed By: #### C P, CDP, LIP #### [facility] [address] [place], [place] [address] System Planning Engineer: Zafar Castillo MD Hemoglobin (Bld) [Mass/Vol] 13.7 g/dL Normal 11.9-15.1 [facility] Comment on above: Performed By: #### C P, CDP, LIP #### [facility] [address] [place], [facility]83 System Planning Engineer: Zafar Castillo MD Immature granulocytes (Bld) [#/Vol] 0 % Normal 0 [facility] Comment on above: Performed By: #### C P, CDP, LIP #### [facility] [address] [place], [facility]83 System Planning Engineer: Zafar Castillo MD Lymphocytes (Bld) [#/Vol] 2.23 10*3/uL Normal 1.10-3.70 [facility] Comment on above: Performed By: #### C P, CDP, LIP #### [facility] [address] [place], [facility]83 System Planning Engineer: Zafar Castillo MD Lymphocytes/100 WBC (Bld) 24 % Normal 24-43 [facility] Comment on above: Performed By: #### C P, CDP, LIP #### [facility] [address] [place], [place] [id number] System Planning Engineer: Zafar Castillo MD MCH (RBC) [Entitic mass] 32.6 pg Normal 25.2-33.5 [facility] Comment on above: Performed By: #### C P, CDP, LIP #### [facility] [address] [place] [address] System Planning Engineer: Zafar Castillo MD MCHC (RBC) [Mass/Vol] 32.8 g/dL Normal 28.4-34.8 [facility] Comment on above: Performed By: #### C P, CDP, LIP #### [address] [place], [facility]83 System Planning Engineer: Zafar Castillo MD MCV (RBC) [Entitic vol] 99.5 fL Normal 82.6-102.9 [facility] Comment on above: Performed By: #### C P, CDP, LIP #### [address] [place] [address] System Planning Engineer: Zafar Castillo MD Monocytes (Bld) [#/Vol] 0.72 10*3/uL Normal 0.10-1.20 [facility] Comment on above: Performed By: #### C P, CDP, LIP #### [facility] [address] [place] [address] System Planning Engineer: Zafar Castillo MD Monocytes/100 WBC (Bld) 8 % Normal 3-12 [facility] Comment on above: Performed By: #### C P, CDP, LIP #### [facility] [address] [place], [place] [id number] System Planning Engineer: Zafar Castillo MD Neutrophil (Seg) 66 % High 36-65 [facility] Comment on above: Performed By: #### C P, CDP, LIP #### [facility] [address] [place] [address] System Planning Engineer: Zafar Castillo MD NRBC Automated 0.0 per 100 WBC Normal 0.0 [facility] Comment on above: Performed By: #### C P, CDP, LIP #### [facility] [address] [place], [place] [address] System Planning Engineer: Zafar Castillo MD Platelet mean volume (Bld) [Entitic vol] 10.0 fL Normal 8.1-13.5 [facility] Comment on above: Performed By: #### C P, CDP, LIP #### [facility] [address] [place] [address] System Planning Engineer: Zafar Castillo MD Platelets (Bld) [#/Vol] 213 10*3/uL Normal 138-453 [facility] Comment on above: Performed By: #### C P, CDP, LIP #### [facility] [address] [place], [facility]83 System Planning Engineer: Zafar Castillo MD RBC (Bld) [#/Vol] 4.20 10*6/uL Normal 3.95-5.11 [facility] Comment on above: Performed By: #### C P, CDP, LIP #### [facility] [address] [place], [place] [address] System Planning Engineer: Zafar Castillo MD WBC (Bld) [#/Vol] 9.4 10*3/uL Normal 3.5-11.3 [facility] Comment on above: Performed By: #### C P, CDP, LIP #### [facility] [address] [place] [address] System Planning Engineer: Zafar Castillo MD Auto Diff Performed NOT REPORTED Normal [facility] Comment on above: Performed By: #### C P, CDP, LIP #### [facility] [address] [place], [place] 5941783 System Planning Engineer: Zafar Castillo MD Platelets (Bld) [#/Vol] NOT REPORTED Normal [facility] Comment on above: Performed By: #### C P, CDP, LIP #### [facility] [address] [place], [place] [id number] System Planning Engineer: Zafar Castillo MD RBC morphology finding Nom (Bld) NOT REPORTED Normal [facility] Comment on above: Performed By: #### C P, CDP, LIP #### [facility] [address] [place], [place] 5242483 System Planning Engineer: Zafar Castillo MD WBC Morphology NOT REPORTED Normal [facility] Comment on above: Performed By: #### C P, CDP, LIP #### [facility] [address] [place], [place] 7828983 System Planning Engineer: Zafar Castillo MD Comp Metabolic Profon 2019 Bilirubin Ql (U) <0.10 Low 0.3-1.2 [facility] Comment on above: Performed By: #### C DP, LIP #### [facility] [address] [place], [place] 6058883 System Planning Engineer: Zafar Castillo MD (cont.) Normal [facility] Comment on above: Result Comment: Aver age GFR for 50-59 years old: 93 mL/min/1.73sq m Chronic Kidney Disease: <60 mL/min/1.73sq m Kidney failure: <15 mL/min/1.73sq m eGFR calculated using average adult body mass. Additional eGFR calculator available at: http://www.Billogram.com/multiple_crcl_2012.htm Performed By: #### C DP, LIP #### [facility] [address] [place], [place] [id number] System Planning Engineer: Zafar Castillo MD Albumin [Mass/Vol] 4.1 g/dL Normal 3.5-5.2 [facility] Comment on above: Performed By: #### C DP, LIP #### [facility] [address] [place], [place] [id number] System Planning Engineer: Zafar Castillo MD Albumin/Globulin [Mass ratio] 1.6 {ratio} Normal 1.0-2.5 [facility] Comment on above: Performed By: #### C DP, LIP #### [facility] [address] [place], [place] [id number] System Planning Engineer: Zafar Castillo MD Alkaline Phos 109 U/L High 35-104 [facility] Comment on above: Performed By: #### C DP, LIP #### [facility] [address] [place], [place] [phone] System Planning Engineer: Zafar Castillo MD ALT [Catalytic activity/Vol] 13 U/L Normal 5-33 [facility] Comment on above: Performed By: #### C DP, LIP #### [facility] [address] [place], [place] [id number] System Planning Engineer: Zafar Castillo MD Anion gap [Moles/Vol] 9 mmol/L Normal 9-17 [facility] Comment on above: Performed By: #### C DP, LIP #### [facility] [address] [place], [place] [id number] System Planning Engineer: Zafar Castillo MD AST [Catalytic activity/Vol] 22 U/L Normal <32 [facility] Comment on above: Performed By: #### C DP, LIP #### [facility] [address] [place], [place] [phone] System Planning Engineer: Zafar Castillo MD BUN/CRE Ratio 13 Normal 9-20 [facility] Comment on above: Performed By: #### C DP, LIP #### [facility] [address] [place], [place] [phone] System Planning Engineer: Zafar Castillo MD Calcium [Mass/Vol] 9.2 mg/dL Normal 8.6-10.4 [facility] Comment on above: Performed By: #### C DP, LIP #### [facility] [address] [place], [place] [phone] System Planning Engineer: Zafar Castillo MD Chloride [Moles/Vol] 103 mmol/L Normal 98-107 [facility] Comment on above: Performed By: #### C DP, LIP #### [facility] [address] [place], [place] [phone] System Planning Engineer: Zafar Castillo MD CO2 [Moles/Vol] 24 mmol/L Normal 20-31 [facility] Comment on above: Performed By: #### C DP, LIP #### [facility] [address] [place], [place] [phone] System Planning Engineer: Zafar Castillo MD Creatinine [Mass/Vol] 0.63 mg/dL Normal 0.50-0.90 [facility] Comment on above: Performed By: #### C DP, LIP #### [facility] [address] [place], [place] [phone] System Planning Engineer: Zafar Castillo MD GFR, Amer >60 Normal >60 [facility] Comment on above: Performed By: #### C DP, LIP #### [facility] [address] [place], [place] [phone] System Planning Engineer: Zafar Castillo MD GFR,non Amer >60 Normal >60 [facility] Comment on above: Performed By: #### C DP, LIP #### [facility] [address] [place], [place] [id number] System Planning Engineer: Zafar Castillo MD Glucose [Mass/Vol] 92 mg/dL Normal 70-99 [facility] Comment on above: Performed By: #### C DP, LIP #### [facility] [address] [place], [place] [phone] System Planning Engineer: Zafar Castillo MD Potassium [Moles/Vol] 3.8 mmol/L Normal 3.7-5.3 [facility] Comment on above: Performed By: #### C DP, LIP #### [facility] [address] [place], [place] [id number] System Planning Engineer: Zafar Castillo MD Protein [Mass/Vol] 6.7 g/dL Normal 6.4-8.3 [facility] Comment on above: Performed By: #### C DP, LIP #### [facility] [address] [place] [address] System Planning Engineer: Zafar Castillo MD Sodium [Moles/Vol] 136 mmol/L Normal 135-144 [facility] Comment on above: Performed By: #### C DP, LIP #### [facility] [address] [place] [address] System Planning Engineer: Zafar Castillo MD Staging: Normal [facility] Comment on above: Result Comment: Stag e 1: Some kidney damage normal GFR Stage 2: Mild kidney damage GFR 60-89 Stage 3: Moderate kidney damage GFR 30-59 Stage 4: Severe kidney damage GFR 15-29 Stage 5: Severe kidney damage GFR <15 ESRD - chronic treatment by dialysis or transplant Performed By: #### C DP, LIP #### [facility] [address] [place], [place] [phone] System Planning Engineer: Zafar Castillo MD Urea nitrogen [Mass/Vol] 8 mg/dL Normal 6-20 [facility] Comment on above: Performed By: #### C DP, LIP #### [facility] [address] [place] [address] System Planning Engineer: Zafar Castillo MD Comprehensive Metabolic Pane nimesh 08-22-2019 Albumin [Mass/Vol] 4.1 g/dL 3.5 - 5.2 g/dL [place] Albumin/Globulin [Mass ratio] 1.6 {ratio} [place] ALP [Catalytic activity/Vol] 109 U/L High 35 - 104 U/L [place] ALT [Catalytic activity/Vol] 13 U/L 5 - 33 U/L [place] Anion gap [Moles/Vol] 9 mmol/L 9 - 17 mmol/L [place] AST [Catalytic activity/Vol] 22 U/L <32 [place] Bilirubin Ql (U) <0.10 Low 0.3 - 1.2 mg/dL [place] Bun/Cre Ratio 13 [place], [place] Calcium [Mass/Vol] 9.2 mg/dL 8.6 - 10. 4 mg/dL [place] Chloride [Moles/Vol] 103 mmol/L 98 - 10 7 mmol/L [place] CO2 [Moles/Vol] 24 mmol/L 20 - 31 mmol/L [place] Creatinine [Mass/Vol] 0.63 mg/dL 0.5 - 0.9 mg/dL [place] GFR >60 >60 mL/min [employer] GFR Non- >60 >60 mL/min [place] Glucose [Mass/Vol] 92 mg/dL 70 - 99 mg/dL [place] Interpretation and review of laboratory results Abnormal [place] Potassium [Moles/Vol] 3.8 mmol/L 3.7 - 5.3 mmol/L [place] Protein [Mass/Vol] 6.7 g/dL 6.4 - 8.3 g/dL [place] Sodium [Moles/Vol] 136 mmol/L 135 - 144 mmol/L [place] Urea nitrogen [Mass/Vol] 8 mg/dL 6 - 20 mg/dL [place] Lactic Acidon 08-22-2019 Lactate [Moles/Vol] 1.5 mmol/L Normal 0.5-2.2 [facility] Comment on above: Performed By: #### L ACTIC #### [facility] [address] [place] [address] System Planning Engineer: Zafar Castillo MD Lactate [Moles/Vol] NOT REPORTED Normal 0.7-2.1 [facility] Comment on above: Performed By: #### L ACTIC #### [facility] [address] [place] [address] System Planning Engineer: Zafar Castillo MD Lactic Acid, Plasmaon 2019 Lactate [Moles/Vol] 1.5 mmol/L 0.5 - 2. 2 mmol/L [place] Lactic Acid, Whole Blood NOT REPORTED 0.7 - 2.1 mmol/L [place] Lipaseon 08-22-2019 Lipase [Catalytic activity/Vol] 255 U/L Critically high 13-60 [facility] Comment on above: Performed By: #### C DP, LIP #### [facility] [address] [place] [address] System Planning Engineer: Zafar Castillo MD Interpretation and review of laboratory results Abnormal [place] Lipase [Catalytic activity/Vol] 255 U/L Critically high 13 - 60 U/L [place] Metabolic Panelon 08-22-2019 GFR/1.73 sq M predicted among non-blacks MDRD (S/P/Bld) [Vol rate/Area] [place] Comment on above: Average GFR for 50-5 9 years old: 93 mL/min/1.73sq m Chronic Kidney Disease: <60 mL/min/1.73sq m Kidney failure: <15 mL/min/1.73sq m eGFR calculated using average adult body mass. Additional eGFR calculator available at: http://[email or web address] Stage 1: Some kidney damage normal GFR Stage 2: Mild kidney damage GFR 60-89 Stage 3: Moderate kidney damage GFR 30-59 Stage 4: Severe kidney damage GFR 15-29 Stage 5: Severe kidney damage GFR <15 ESRD - chronic treatment by dialysis or transplant Urinalysis w/ Microon 2019 ----- Normal [facility] Comment on above: Performed By: #### C DP, LIP #### [facility] [address] [place] [address] System Planning Engineer: Zafar Castillo MD Acetoacetic Acid,Ur Negative Normal [facility] Comment on above: Performed By: #### C DP, LIP #### [facility] [address] [place] [address] System Planning Engineer: Zafar Castillo MD Bilirubin, SemiQt,Ur Negative Normal [facility] Comment on above: Performed By: #### C DP, LIP #### [facility] [address] [place], [place] [phone] System Planning Engineer: Zafar Castillo MD Color (U) YELLOW Normal YEL [facility] Comment on above: Performed By: #### C DP, LIP #### [facility] [address] [place], [place] [phone] System Planning Engineer: Zafar Castillo MD Epithelial cells LM.HPF (Urine sed) [#/Area] 2 TO 5 Normal 0-25 [facility] Comment on above: Performed By: #### C DP, LIP #### [facility] [address] [place], [place] [phone] System Planning Engineer: Zafar Castillo MD Glucose Ql (U) Negative Normal NEG [facility] Comment on above: Performed By: #### C DP, LIP #### [facility] [address] [place], [place] [phone] System Planning Engineer: Zafar Castillo MD Hemoglobin, Ur Negative Normal NEG [facility] Comment on above: Performed By: #### C DP, LIP #### [facility] [address] [place], [place] [phone] System Planning Engineer: Zafar Castillo MD Leukocyte esterase Test strip Ql (U) Negative Normal [facility] Comment on above: Performed By: #### C DP, LIP #### [facility] [address] [place], [place] [phone] System Planning Engineer: Zafar Castillo MD Nitrite,Ur Negative Normal NEG [facility] Comment on above: Performed By: #### C DP, LIP #### [facility] [address] [place], [place] [phone] System Planning Engineer: Zafar Castillo MD pH (U) 6.0 [pH] Normal 5.0-9.0 [facility] Comment on above: Performed By: #### C DP, LIP #### [facility] [address] [place], [place] [phone] System Planning Engineer: Zafar Castillo MD Protein Ql (U) Negative Normal NEG [facility] Comment on above: Performed By: #### C DP, LIP #### [address] [place], [place] [phone] System Planning Engineer: Zafar Castillo MD RBC (U) [#/Vol] None Normal 0-2 [facility] Comment on above: Performed By: #### C DP, LIP #### [address] [place], [place] [phone] System Planning Engineer: Zafar Castillo MD Specific gravity (U) [Rel density] <1.005 Low 1.010-1.020 [facility] Comment on above: Performed By: #### C DP, LIP #### [address] [place], [place] [phone] System Planning Engineer: Zafar Castillo MD Turbidity CLEAR Normal CLEAR [facility] Comment on above: Performed By: #### C DP, LIP #### [address] [place], [place] [phone] System Planning Engineer: Zafar Castillo MD Urobilinogen,Ur Normal Normal NORM [facility] Comment on above: Performed By: #### C DP, LIP #### [address] [place], [place] [phone] System Planning Engineer: Zafar Castillo MD WBC (U) [#/Vol] None Normal 0-5 [facility] Comment on above: Performed By: #### C DP, LIP #### [facility] [address] [place], [place] [phone] System Planning Engineer: Zafar Castillo MD Amorphous sediment LM Ql (Urine sed) NOT REPORTED Normal [facility] Comment on above: Performed By: #### C DP, LIP #### [facility] [address] [place], [place] [phone] System Planning Engineer: Zafar Castillo MD Bacteria LM.HPF (Urine sed) [#/Area] NOT REPORTED Normal [facility] Comment on above: Performed By: #### C DP, LIP #### [facility] [address] [place] [address] System Planning Engineer: Zafar Castillo MD Casts LM.LPF (Urine sed) [#/Area] NOT REPORTED Normal [facility] Comment on above: Performed By: #### C DP, LIP #### [facility] [address] [place] [address] System Planning Engineer: Zafar Castillo MD Comment NOT REPORTED Normal [facility] Comment on above: Performed By: #### C DP, LIP #### [facility] [address] [place] [address] System Planning Engineer: Zafar Castillo MD Crystals LM Nom (Urine sed) NOT REPORTED Normal [facility] Comment on above: Performed By: #### C DP, LIP #### [facility] [address] [place] [address] System Planning Engineer: Zafar Castillo MD Epithelial, Renal NOT REPORTED Normal 0 [facility] Comment on above: Performed By: #### C DP, LIP #### [facility] [address] [place], [place] [phone] System Planning Engineer: Zafar Castillo MD Mucus Strands NOT REPORTED Normal NONE [facility] Comment on above: Performed By: #### C DP, LIP #### [facility] [address] [place] [address] System Planning Engineer: Zafar Castillo MD Other Observations NOT REPORTED Normal NREQ [facility] Comment on above: Performed By: #### C DP, LIP #### [facility] [address] [place], [place] [phone] System Planning Engineer: Zafar Castillo MD Trichomonas NOT REPORTED Normal [facility] Comment on above: Performed By: #### C DP, LIP #### [facility] [address] [place] [address] System Planning Engineer: Zafar Castillo MD Yeast LM Ql (Urine sed) NOT REPORTED Normal [facility] Comment on above: Performed By: #### C DP, LIP #### [facility] [address] [place] [address] System Planning Engineer: Zafar Castillo MD Urinalysis with Microscopico n 08-22-2019 Amorphous, UA NOT REPORTED None [facility]- [place], [place] Bacteria, UA NOT REPORTED None [facility], [place] Bilirubin Urine Negative NEGATIVE [facility] [place] Casts UA NOT REPORTED /LPF [facility], [place] Color, UA YELLOW YELLOW [place] Crystals, UA NOT REPORTED None /HPF [facility], [place] Epithelial Cells UA 2 TO 5 [place] Glucose, Ur Negative NEGATIVE [place] Interpretation and review of laboratory results Abnormal [place] Ketones Ql (U) Negative NEGATIVE [facility] Leukocyte esterase Test strip Ql (U) Negative NEGATIVE [facility], [place] Mucus, UA NOT REPORTED None [facility], [place] Nitrite, Urine Negative NEGATIVE [facility], [place] Other Observations UA NOT REPORTED NOT REQ. M [facility], [place] pH, UA 6.0 [place] Protein (U) [Mass/Vol] Negative NEGATIVE [facility], [place] RBC (U) [#/Vol] None [facility] [place] [place] Renal Epithelial, UA NOT REPORTED 0 /HPF Me [facility], [place] Specific [place], UA <1.005 Low [facility], [place] Trichomonas, UA NOT REPORTED None [facility] [place] Turbidity UA CLEAR CLEAR [facility], [place] Urinalysis Comments NOT REPORTED [facility], [place] Urine Hgb Negative NEGATIVE [facility], [place] Urobilinogen, Urine Normal Normal [facility], [place] WBC, UA None [facility], [place] Yeast, UA NOT REPORTED None [facility], [place] - [facility], [place] CBC WITH AUTO DIFFERENTIALon 03-04-2018 Basophils Auto #/vol (Bld) 0.07 10*3/uL Invalid Interpretation Code [facility] Basophils/100 WBC Auto (Bld) 0.7 % Invalid Interpretation Code [facility] Eosinophils Auto #/vol (Bld) 0.09 10*3/uL Invalid Interpretation Code [facility] Eosinophils/100 WBC Auto (Bld) 0.9 % Invalid Interpretation Code [facility] Erythrocyte distribution width Auto Entitic volume (RBC) 12.8 % Invalid Interpretation Code 11.6 - 14.8 % [facility] Hematocrit Auto Volume Fraction (Bld) 45.0 % Invalid Interpretation Code 36 - 46 % [facility] Hemoglobin mass conc (Bld) 15.4 g/dL Invalid Interpretation Code 12 - 16 g/dL [facility] Immature granulocytes #/vol (Bld) 0.03 10*3/uL Invalid Interpretation Code [facility] Immature granulocytes/100 WBC (Bld) 0.30 % Invalid Interpretation Code [facility] Comment on above: The IG parameter is the percentage of metamyelocytes, myelocytes, and promyelocytes. Interpretation and review of laboratory results Abnormal Invalid Interpretation Code [facility] Lymphocytes Auto #/vol (Bld) 2.22 10*3/uL Invalid Interpretation Code [facility] Lymphocytes/100 WBC Auto (Bld) 21.0 % Invalid Interpretation Code [facility] MCH Auto Entitic mass (RBC) 33.6 pg Invalid Interpretation Code 26 - 34 pg [facility] MCHC Auto mass conc (RBC) 34.2 g/dL Invalid Interpretation Code 31 - 37 g/dL [facility] MCV Auto Entitic volume (RBC) 98.0 fL Invalid Interpretation Code 80 - 100 fL [facility] Monocytes Auto #/vol (Bld) 0.82 10*3/uL Invalid Interpretation Code [facility] Monocytes/100 WBC Auto (Bld) 7.8 % Invalid Interpretation Code [facility] Neutrophils Auto #/vol (Bld) 7.33 10*3/uL High [facility] Neutrophils/100 WBC Auto (Bld) 69.3 % Invalid Interpretation Code [facility] Nucleated RBC #/vol (Bld) 0.00 10*3/uL Invalid Interpretation Code [facility] Nucleated RBC/100 WBC Ratio (Bld) 0.0 % Invalid Interpretation Code [facility] Platelet mean volume Auto Entitic volume (Bld) 10.1 fL Invalid Interpretation Code 9 - 15.5 fL [facility] Platelets Auto #/vol (Bld) 254 10*3/uL Invalid Interpretation Code [facility] RBC Auto #/vol (Bld) 4.59 10*6/uL Invalid Interpretation Code [facility] WBC Auto #/vol (Bld) 10.56 10*3/uL Invalid Interpretation Code [facility] Chem 7on 03-04-2018 Anion gap 3 molar conc 15 mmol/L Invalid Interpretation Code 10 - 20 mmol/L [facility] Chloride molar conc 103 mmol/L Invalid Interpretation Code 98 - 108 mmol/L [facility] Creatinine mass conc 0.85 mg/dL Invalid Interpretation Code 0.4 - 1.1 mg/dL [facility] GFR/1.73 sq M predicted among non-blacks MDRD vol rate/area (S/P/Bld) The eGFR should be used for monitoring renal function only and not for medication dosing. Invalid Interpretation Code [facility] GFR/1.73 sq M.predicted CKD-EPI vol rate/area (S/P/Bld) 81 Invalid Interpretation Code >=60 mL/min/1.73 m2 [facility] Glucose mass conc 92 mg/dL Invalid Interpretation Code 65 - 99 mg/dL [facility] HCO3 molar conc 25 mmol/L Invalid Interpretation Code 21 - 32 mmol/L [facility] Potassium molar conc 4.4 mmol/L Invalid Interpretation Code 3.5 - 5.1 mmol/L [facility] Sodium molar conc 139 mmol/L Invalid Interpretation Code 135 - 145 mmol/L [facility] Urea nitrogen mass conc 7 mg/dL Low 8 - 25 mg/dL [facility] Urea nitrogen/Creatinine mass ratio 8.2 mg/mg Low [facility] Hepatic Function Panel (LFT) on 03-04-2018 Albumin mass conc 4.5 g/dL Invalid Interpretation Code 3.2 - 5.2 g/dL [facility] ALP enzyme act/vol 97 U/L Invalid Interpretation Code 40 - 150 U/L [facility] ALT enzyme act/vol 9 U/L Invalid Interpretation Code 0 - 40 U/L [facility] AST enzyme act/vol 15 U/L Invalid Interpretation Code 0 - 45 U/L [facility] Bilirubin mass conc mg/dL Invalid Interpretation Code 0 - 1.3 mg/dL [facility] Bilirubin.conjugated mass conc mg/dL Invalid Interpretation Code 0 - 0.4 mg/dL [facility] Interpretation and review of laboratory results Normal Invalid Interpretation Code [facility] Protein mass conc 7.2 g/dL Invalid Interpretation Code 6 - 8 g/dL [facility] Lipaseon 03-04-2018 Lipase enzyme act/vol 179 U/L High 15 - 65 U/L [facility] Otheron 03-04-2018 Extra Tube Hold for add-ons. Invalid Interpretation Code [facility] Comment on above: Auto resulted. Interpretation and review of laboratory results Abnormal Invalid Interpretation Code [facility] URINALYSISon 03-04-2018 Bacteria Auto Ql (U) Rare Abnormal None Se en /hpf [facility] Bilirubin Ql (U) Negative Invalid Interpretation Code Negative [facility] Clarity Refractometry automated Nom (U) Clear Invalid Interpretation Code Clear [facility] Color Auto Nom (U) Colorless Invalid Interpretation Code Colorless, Yellow [facility] Epithelial cells.squamous Auto #/area (Urine sed) 1 Invalid Interpretation Code [facility] Glucose Automated test strip mass conc (U) Negative Invalid Interpretation Code Negative mg/dL [facility] Hemoglobin Automated test strip Ql (U) Negative Invalid Interpretation Code Negative [facility] Interpretation and review of laboratory results Abnormal Invalid Interpretation Code [facility] Ketones mass conc (U) Negative Invalid Interpretation Code Negative mg/dL [facility] Leukocyte esterase Automated test strip Ql (U) Negative Invalid Interpretation Code Negative [facility] Nitrite Automated test strip Ql (U) Negative Invalid Interpretation Code Negative [facility] pH Test strip (U) 7.0 [pH] Invalid Interpretation Code [facility] Protein mass conc (U) Negative Invalid Interpretation Code Negative mg/dL [facility] RBC Auto #/area (Urine sed) 2 Invalid Interpretation Code [facility] Specific gravity Automated test strip Relative Density (U) 1.004 Low [facility] Urobilinogen Test strip Qn (U) <2.0 Invalid Interpretation Code <2.0 mg/dL [facility] WBC Auto #/area (Urine sed) <1 Invalid Interpretation Code [facility] Microscopic examination is performed on all urinalysis samples and only positive findings are reported. The test for blood on the chemical analytic portion of urinalysis may also be positive due to hemoglobinuria and myoglobinuria and if red blood cells are present they are quantified by microscopic examination. Invalid Interpretation Code [facility] BMPon 08-24-2017 Anion gap 18 mmol/L Invalid Interpretation Code 10 - 20 mmol/L [facility] Bicarbonate (HCO3) 27 mmol/L Invalid Interpretation Code 21 - 32 mmol/L [facility] BUN/Creatinine Ratio 10.1 mg/mg Invalid Interpretation Code 10.0 - 20.0 [facility] Calcium 10.6 mg/dL High 8.4 - 10.2 mg/dL [facility] Chloride 101 mmol/L Invalid Interpretation Code 98 - 108 mmol/L [facility] Creatinine 0.69 mg/dL Invalid Interpretation Code 0.4 - 1.1 mg/dL [facility] eGFR (non-black) 103 mL/min/{1.73_m2} Invalid Interpretation Code >=60 [facility] eGFR (non-black) The eGFR should be used for monitoring renal function only and not for medication dosing. Invalid Interpretation Code [facility] Glucose mass conc 105 mg/dL High 65 - 99 mg/dL [facility] Interpretation and review of laboratory results Abnormal Invalid Interpretation Code [facility] Potassium molar conc 4.1 mmol/L Invalid Interpretation Code 3.5 - 5.1 mmol/L [facility] Sodium 142 mmol/L Invalid Interpretation Code 135 - 145 mmol/L [facility] Urea nitrogen 7 mg/dL Low 8 - 25 mg/dL [facility] CBC Auto Differentialon 08-07 Basophils Auto #/vol (Bld) 0.08 K/mcL Invalid Interpretation Code 0.00 - 0.30 [facility] Basophils/100 WBC Auto (Bld) 0.6 % Invalid Interpretation Code [facility] Eosinophils 0.05 K/mcL Invalid Interpretation Code 0.00 - 0.50 [facility] Eosinophils/100 leukocytes 0.4 % Invalid Interpretation Code [facility] Erythrocyte distribution width Auto Entitic volume (RBC) 12.2 % Invalid Interpretation Code 11.6 - 14.8 % [facility] Erythrocytes (RBC) 4.60 M/mcL Invalid Interpretation Code 4.00 - 5.20 [facility] Hematocrit (HCT) 43.4 % Invalid Interpretation Code 36 - 46 % [facility] Hemoglobin mass conc (Bld) 15.2 g/dL Invalid Interpretation Code 12 - 16 g/dL [facility] Immature granulocytes #/vol (Bld) 0.05 K/mcL Invalid Interpretation Code 0.00 - 0.30 [facility] Immature granulocytes/100 WBC (Bld) 0.40 % Invalid Interpretation Code [facility] Comment on above: The IG parameter is the percentage of metamyelocytes, myelocytes, and promyelocytes. Lymphocytes 2.40 K/mcL Invalid Interpretation Code 0.90 - 4.00 [facility] Lymphocytes/100 leukocytes 18.1 % Invalid Interpretation Code [facility] MCH 33.0 pg Invalid Interpretation Code 26 - 34 pg [facility] MCHC mass conc (RBC) 35.0 g/dL Invalid Interpretation Code 31 - 37 g/dL [facility] MCV 94.3 fL Invalid Interpretation Code 80 - 100 fL [facility] Monocytes 0.85 K/mcL Invalid Interpretation Code 0.30 - 0.90 [facility] Monocytes/100 leukocytes 6.4 % Invalid Interpretation Code [facility] Neutrophils 9.81 K/mcL High 1.70 - 7.00 [facility] Neutrophils/100 WBC Auto (Bld) 74.1 % Invalid Interpretation Code [facility] Nucleated erythrocytes 0.00 K/mcL Invalid Interpretation Code 0.00 - 0.00 [facility] Nucleated erythrocytes/100 erythrocytes 0.0 % Invalid Interpretation Code [facility] Platelet mean volume (PMV) 10.0 fL Invalid Interpretation Code 9 - 15.5 fL [facility] Platelets 242 K/mcL Invalid Interpretation Code 150 - 400 [facility] WBC (Leukocytes) 13.24 K/mcL High 4.50 - 11.00 [facility] CBC w/ Diffon 08-24-2017 Creatinine The following orders were created for panel order CBC w/ Diff. Procedure Abnormality Status --------- ------ CBC Auto Differential[[id number] ] Abnormal Final result Please view results for these tests on the individual orders. Invalid Interpretation Code [facility] CT ABDOMEN PELVIS WITH IV [...] and demonstrated a prominent signal loss on [id number] images on MRI performed 09/06/2014, compatible with [...] 24, 2017 3:53:38 PM EDTTranscribed by: RON KELLOGG on ThuAug 24, 2017 4:00:38 PM EDTFinalized by: PONCHO GALAVIZ on ThuAug 24, 2017 4:03:34 PM EDT Normal [facility] Comment on above: Order Comment: Reaso n [...] and demonstrated a prominent signal loss on [id number]-cj-[id number] images on MRI performed 09/06/2014, compatible with [...] probably remain. 5. Small left adrenal adenoma. [employer] Workstation ID: [id number] Invalid Interpretation Code [facility] CT Abdomen Pelvis With IV [...] and demonstrated a prominent signal loss on [id number] images on MRI performed 09/06/2014, compatible with [...] suspicious focal osseous lesions. Invalid Interpretation Code [facility] CT Abdomen Pelvis With IV [...] probably remain. 5. Small left adrenal adenoma. [employer] Workstation ID: [id number] Invalid Interpretation Code [facility] Hepatic Function Panel (LFT) on 08-24-2017 Alanine aminotransferase (ALT) 14 U/L Invalid Interpretation Code 0 - 40 U/L [facility] Albumin 4.7 g/dL Invalid Interpretation Code 3.2 - 5.2 g/dL [facility] Alkaline phosphatase (ALP) 91 U/L Invalid Interpretation Code 40 - 150 U/L [facility] Aspartate aminotransferase (AST) 17 U/L Invalid Interpretation Code 0 - 45 U/L [facility] Bilirubin (conjugated) mg/dL Invalid Interpretation Code 0 - 0.4 mg/dL [facility] Bilirubin (total) mg/dL Invalid Interpretation Code 0 - 1.3 mg/dL [facility] Interpretation and review of laboratory results Normal Invalid Interpretation Code [facility] Protein 7.4 g/dL Invalid Interpretation Code 6 - 8 g/dL [facility] Lactic Acid, Plasmaon 2017 Lactate 1.0 mmol/L Invalid Interpretation Code 0.6 - 2 mmol/L [facility] Light Blue Topon 08-24-2017 Extra Tube Hold for add-ons. Invalid Interpretation Code [facility] Comment on above: Auto resulted. Lipaseon 08-24-2017 Lipase 51 U/L Invalid Interpretation Code 15 - 65 U/L [facility] [place] Topon 08-24-2017 [place] Top Invalid Interpretation Code [facility] [place] Drawon 08-24-2017 Creatinine The following orders were created for panel order [place] Draw. Procedure Abnormality Status --------- ------ Gold Top[[id number]] Final result Light Blue Top[[id number]] Final result [place] Top[[id number]] Final result Please view results for these tests on the individual orders. Invalid Interpretation Code [facility] Urinalysison 08-24-2017 Bilirubin Ql (U) Negative Invalid Interpretation Code Negative [facility] Blood, Urine Negative Invalid Interpretation Code Negative [facility] Interpretation and review of laboratory results Abnormal Invalid Interpretation Code [facility] Nitrite, Urine Negative Invalid Interpretation Code Negative [facility] Squamous Epithelial 5 /hpf High 0 - 4 [facility] Transitional Epithelial <1 Invalid Interpretation Code 0 - 1 /hpf [facility] Urine, bacteria in sediment Rare Abnormal None Seen /hpf [facility] Urine, clarity Hazy Abnormal Clear [facility] Urine, color Yellow Invalid Interpretation Code Colorless, Yellow [facility] Urine, erythrocytes 1 /hpf Invalid Interpretation Code 0 - 3 [facility] Urine, glucose presence Negative Invalid Interpretation Code Negative mg/dL [facility] Urine, ketones presence Negative Invalid Interpretation Code Negative mg/dL [facility] Urine, leukocyte esterase presence Negative Invalid Interpretation Code Negative [facility] Urine, pH 7.0 [pH] Invalid Interpretation Code 5.0 - 7.0 [facility] Urine, protein Negative Invalid Interpretation Code Negative mg/dL [facility] Urine, specific gravity 1.006 1 Invalid Interpretation Code 1.005 - 1.025 [facility] Urine, urobilinogen <2.0 Invalid Interpretation Code <2.0 mg/dL [facility] WBCs, Urine 1 /hpf Invalid Interpretation Code 0 - 5 [facility] Urinalysis Microscopic examination is performed on all urinalysis samples and only positive findings are reported. The test for blood on the chemical analytic portion of urinalysis may also be positive due to hemoglobinuria and myoglobinuria and if red blood cells are present they are quantified by microscopic examination. Invalid Interpretation Code [facility] BMPon 06-09-2017 Anion gap 18 mmol/L Invalid Interpretation Code 10 - 20 mmol/L [facility] Bicarbonate (HCO3) 21 mmol/L Invalid Interpretation Code 21 - 32 mmol/L [facility] BUN/Creatinine Ratio 11.0 mg/mg Invalid Interpretation Code 10.0 - 20.0 [facility] Calcium 10.2 mg/dL Invalid Interpretation Code 8.4 - 10.2 mg/dL [facility] Chloride 102 mmol/L Invalid Interpretation Code 98 - 108 mmol/L [facility] Creatinine 0.73 mg/dL Invalid Interpretation Code 0.4 - 1.1 mg/dL [facility] eGFR (non-black) The eGFR should be used for monitoring renal function only and not for medication dosing. Invalid Interpretation Code [facility] eGFR (non-black) 98 mL/min/{1.73_m2} Invalid Interpretation Code >=60 [facility] Glucose 80 mg/dL Invalid Interpretation Code 65 - 99 mg/dL [facility] Potassium 4.3 mmol/L Invalid Interpretation Code 3.5 - 5.1 mmol/L [facility] Sodium 137 mmol/L Invalid Interpretation Code 135 - 145 mmol/L [facility] Urea nitrogen 8 mg/dL Invalid Interpretation Code 8 - 25 mg/dL [facility] CBC Auto Differentialon 04-0 Basophils 0.07 K/mcL Invalid Interpretation Code 0.00 - 0.30 [facility] Basophils/100 leukocytes 0.7 % Invalid Interpretation Code [facility] Eosinophils 0.10 K/mcL Invalid Interpretation Code 0.00 - 0.50 [facility] Eosinophils/100 leukocytes 1.0 % Invalid Interpretation Code [facility] Erythrocytes (RBC) 4.75 M/mcL Invalid Interpretation Code 4.00 - 5.20 [facility] Erythrocytes (RBC) 0.00 K/mcL Invalid Interpretation Code 0.00 - 0.00 [facility] Hematocrit (HCT) 46.1 % High 36 - 46 % [facility] Hemoglobin (HGB) 16.1 g/dL High 12 - 16 g/dL [facility] IG Absolute 0.02 K/mcL Invalid Interpretation Code 0.00 - 0.30 [facility] IG Percent 0.20 % Invalid Interpretation Code [facility] Lymphocytes 1.75 K/mcL Invalid Interpretation Code 0.90 - 4.00 [facility] Lymphocytes/100 leukocytes 17.9 % Invalid Interpretation Code [facility] MCH 33.9 pg Invalid Interpretation Code 26 - 34 pg [facility] MCHC 34.9 g/dL Invalid Interpretation Code 31 - 37 g/dL [facility] MCV 97.1 fL Invalid Interpretation Code 80 - 100 fL [facility] Monocytes 0.88 K/mcL Invalid Interpretation Code 0.30 - 0.90 [facility] Monocytes/100 leukocytes 9.0 % Invalid Interpretation Code [facility] Neutrophils 6.98 K/mcL Invalid Interpretation Code 1.70 - 7.00 [facility] Neutrophils/100 leukocytes 71.2 % Invalid Interpretation Code [facility] Nucleated erythrocytes/100 erythrocytes 0.0 % Invalid Interpretation Code [facility] Platelet mean volume (PMV) 10.9 fL Invalid Interpretation Code 9 - 15.5 fL [facility] Platelets 223 K/mcL Invalid Interpretation Code 150 - 400 [facility] RDW-CA 12.8 % Invalid Interpretation Code 11.6 - 14.8 % [facility] WBC (Leukocytes) 9.80 K/mcL Invalid Interpretation Code 4.50 - 11.00 [facility] Interpretation and review of laboratory results Abnormal Invalid Interpretation Code [facility] CBC w/ Diffon 06-09-2017 Creatinine The following orders were created for panel order CBC w/ Diff. Procedure Abnormality Status --------- ------ CBC Auto Differential[[id number] ] Abnormal Final result Please view results for these tests on the individual orders. Invalid Interpretation Code [facility] Hepatic Function Panel (LFT) on 06-09-2017 Alanine aminotransferase (ALT) 10 U/L Invalid Interpretation Code 0 - 40 U/L [facility] Albumin 4.4 g/dL Invalid Interpretation Code 3.2 - 5.2 g/dL [facility] Alkaline phosphatase (ALP) 89 U/L Invalid Interpretation Code 40 - 150 U/L [facility] Aspartate aminotransferase (AST) 20 U/L Invalid Interpretation Code 0 - 45 U/L [facility] Bilirubin (conjugated) mg/dL Invalid Interpretation Code 0 - 0.4 mg/dL [facility] Bilirubin (total) mg/dL Invalid Interpretation Code 0 - 1.3 mg/dL [facility] Interpretation and review of laboratory results Normal Invalid Interpretation Code [facility] Protein 7.3 g/dL Invalid Interpretation Code 6 - 8 g/dL [facility] Lipaseon 06-09-2017 Lipase 50 U/L Invalid Interpretation Code 15 - 65 U/L [facility] [place] Draw[place] 06-09-2017 Creatinine The following orders were created for panel order [place] Draw. Procedure Abnormality Status --------- ------ Urine Container[[id number]] Final result Please view results for these tests on the individual orders. Invalid Interpretation Code [facility] Urinalysison 06-09-2017 Bilirubin, Urine Negative Invalid Interpretation Code Negative [facility] Blood, Urine Negative Invalid Interpretation Code Negative [facility] Calcium Many Abnormal None Seen /hpf [facility] Mucus, Urine Rare Invalid Interpretation Code None Seen, Rare /lpf [facility] Nitrite, Urine Negative Invalid Interpretation Code Negative [facility] RBCs, Urine 1 /hpf Invalid Interpretation Code 0 - 3 [facility] Squamous Epithelial 4 /hpf Invalid Interpretation Code 0 - 4 [facility] Urine, bacteria in sediment None Seen Invalid Interpretation Code None Seen /hpf [facility] Urine, clarity Cloudy Abnormal Clear [facility] Urine, color Yellow Invalid Interpretation Code Colorless, Yellow [facility] Urine, glucose presence Negative Invalid Interpretation Code Negative mg/dL [facility] Urine, ketones presence Trace Abnormal Negative mg/dL [facility] Urine, leukocyte esterase presence Negative Invalid Interpretation Code Negative [facility] Urine, pH 5.0 [pH] Invalid Interpretation Code 5.0 - 7.0 [facility] Urine, protein Negative Invalid Interpretation Code Negative mg/dL [facility] Urine, specific gravity 1.024 1 Invalid Interpretation Code 1.005 - 1.025 [facility] Urine, urobilinogen 2.0 mg/dL Abnormal <2.0 [facility] WBCs, Urine 1 /hpf Invalid Interpretation Code 0 - 5 [facility] Urinalysis Microscopic examination is performed on all urinalysis samples and only positive findings are reported. The test for blood on the chemical analytic portion of urinalysis may also be positive due to hemoglobinuria and myoglobinuria and if red blood cells are present they are quantified by microscopic examination. Invalid Interpretation Code [facility] Urine Containeron 06-09-2017 Urine Container Invalid Interpretation Code [facility] CBCon 05-15-2017 Erythrocytes (RBC) 3.76 M/mcL Low 4.00 - 5.20 [facility] Erythrocytes (RBC) 0.00 K/mcL Invalid Interpretation Code 0.00 - 0.00 [facility] Hematocrit (HCT) 37.1 % Invalid Interpretation Code 36 - 46 % [facility] Hemoglobin (HGB) 12.4 g/dL Invalid Interpretation Code 12 - 16 g/dL [facility] MCH 33.0 pg Invalid Interpretation Code 26 - 34 pg [facility] MCHC 33.4 g/dL Invalid Interpretation Code 31 - 37 g/dL [facility] MCV 98.7 fL Invalid Interpretation Code 80 - 100 fL [facility] Nucleated erythrocytes/100 erythrocytes 0.0 % Invalid Interpretation Code [facility] Platelet mean volume (PMV) 9.9 fL Invalid Interpretation Code 9 - 15.5 fL [facility] Platelets 197 K/mcL Invalid Interpretation Code 150 - 400 [facility] RDW-CA 12.6 % Invalid Interpretation Code 11.6 - 14.8 % [facility] WBC (Leukocytes) 7.55 K/mcL Invalid Interpretation Code 4.50 - 11.00 [facility] Comprehensive Metabolic Pane nimesh 05-15-2017 Alanine aminotransferase (ALT) 9 U/L Invalid Interpretation Code 0 - 40 U/L [facility] Albumin 3.3 g/dL Invalid Interpretation Code 3.2 - 5.2 g/dL [facility] Alkaline phosphatase (ALP) 73 U/L Invalid Interpretation Code 40 - 150 U/L [facility] Anion gap 15 mmol/L Invalid Interpretation Code 10 - 20 mmol/L [facility] Aspartate aminotransferase (AST) 13 U/L Invalid Interpretation Code 0 - 45 U/L [facility] Bicarbonate (HCO3) 23 mmol/L Invalid Interpretation Code 21 - 32 mmol/L [facility] Bilirubin (total) 0.2 mg/dL Invalid Interpretation Code 0 - 1.3 mg/dL [facility] BUN/Creatinine Ratio 9.4 mg/mg Low 10.0 - 20.0 [facility] Calcium 8.4 mg/dL Invalid Interpretation Code 8.4 - 10.2 mg/dL [facility] Chloride 108 mmol/L Invalid Interpretation Code 98 - 108 mmol/L [facility] Creatinine 0.64 mg/dL Invalid Interpretation Code 0.4 - 1.1 mg/dL [facility] eGFR (non-black) The eGFR should be used for monitoring renal function only and not for medication dosing. Invalid Interpretation Code [facility] eGFR (non-black) 107 mL/min/{1.73_m2} Invalid Interpretation Code >=60 [facility] Glucose 91 mg/dL Invalid Interpretation Code 65 - 99 mg/dL [facility] Potassium 4.0 mmol/L Invalid Interpretation Code 3.5 - 5.1 mmol/L [facility] Protein 5.3 g/dL Low 6 - 8 g/dL [facility] Sodium 142 mmol/L Invalid Interpretation Code 135 - 145 mmol/L [facility] Urea nitrogen 6 mg/dL Low 8 - 25 mg/dL [facility] Lipaseon 05-15-2017 Interpretation and review of laboratory results Normal Invalid Interpretation Code [facility] Lipase 31 U/L Invalid Interpretation Code 15 - 65 U/L [facility] Lipid Panelon 05-15-2017 Cholesterol 193 mg/dL Invalid Interpretation Code 100 - 199 mg/dL [facility] Cholesterol to HDL Ratio 7.1 {ratio} Invalid Interpretation Code [facility] HDL Cholesterol 27 mg/dL Low 40 - 59 mg/dL [facility] HDL Cholesterol 166 mg/dL Invalid Interpretation Code [facility] Interpretation and review of laboratory results Abnormal Invalid Interpretation Code [facility] LDL Cholesterol 108 mg/dL Invalid Interpretation Code 10 - 130 mg/dL [facility] Triglyceride 291 mg/dL High 30 - 150 mg/dL [facility] BMPon 05-14-2017 Anion gap 18 mmol/L Invalid Interpretation Code 10 - 20 mmol/L [facility] Bicarbonate (HCO3) 25 mmol/L Invalid Interpretation Code 21 - 32 mmol/L [facility] BUN/Creatinine Ratio 11.8 mg/mg Invalid Interpretation Code 10.0 - 20.0 [facility] Calcium 10.7 mg/dL High 8.4 - 10.2 mg/dL [facility] Chloride 102 mmol/L Invalid Interpretation Code 98 - 108 mmol/L [facility] Creatinine 0.68 mg/dL Invalid Interpretation Code 0.4 - 1.1 mg/dL [facility] eGFR (non-black) The eGFR should be used for monitoring renal function only and not for medication dosing. Invalid Interpretation Code [facility] eGFR (non-black) 105 mL/min/{1.73_m2} Invalid Interpretation Code >=60 [facility] Glucose 86 mg/dL Invalid Interpretation Code 65 - 99 mg/dL [facility] Potassium 4.0 mmol/L Invalid Interpretation Code 3.5 - 5.1 mmol/L [facility] Sodium 141 mmol/L Invalid Interpretation Code 135 - 145 mmol/L [facility] Urea nitrogen 8 mg/dL Invalid Interpretation Code 8 - 25 mg/dL [facility] CBC Auto Differentialon Basophils 0.09 K/mcL Invalid Interpretation Code 0.00 - 0.30 [facility] Basophils/100 leukocytes 0.8 % Invalid Interpretation Code [facility] Eosinophils 0.08 K/mcL Invalid Interpretation Code 0.00 - 0.50 [facility] Eosinophils/100 leukocytes 0.7 % Invalid Interpretation Code [facility] Erythrocytes (RBC) 0.00 K/mcL Invalid Interpretation Code 0.00 - 0.00 [facility] Erythrocytes (RBC) 4.96 M/mcL Invalid Interpretation Code 4.00 - 5.20 [facility] Hematocrit (HCT) 48.5 % High 36 - 46 % [facility] Hemoglobin (HGB) 16.6 g/dL High 12 - 16 g/dL [facility] IG Absolute 0.04 K/mcL Invalid Interpretation Code 0.00 - 0.30 [facility] IG Percent 0.40 % Invalid Interpretation Code [facility] Interpretation and review of laboratory results Abnormal Invalid Interpretation Code [facility] Lymphocytes 1.89 K/mcL Invalid Interpretation Code 0.90 - 4.00 [facility] Lymphocytes/100 leukocytes 17.7 % Invalid Interpretation Code [facility] MCH 33.5 pg Invalid Interpretation Code 26 - 34 pg [facility] MCHC 34.2 g/dL Invalid Interpretation Code 31 - 37 g/dL [facility] MCV 97.8 fL Invalid Interpretation Code 80 - 100 fL [facility] Monocytes 0.74 K/mcL Invalid Interpretation Code 0.30 - 0.90 [facility] Monocytes/100 leukocytes 6.9 % Invalid Interpretation Code [facility] Neutrophils 7.86 K/mcL High 1.70 - 7.00 [facility] Neutrophils/100 leukocytes 73.5 % Invalid Interpretation Code [facility] Nucleated erythrocytes/100 erythrocytes 0.0 % Invalid Interpretation Code [facility] Platelet mean volume (PMV) 9.8 fL Invalid Interpretation Code 9 - 15.5 fL [facility] Platelets 275 K/mcL Invalid Interpretation Code 150 - 400 [facility] RDW-CA 12.8 % Invalid Interpretation Code 11.6 - 14.8 % [facility] WBC (Leukocytes) 10.70 K/mcL Invalid Interpretation Code 4.50 - 11.00 [facility] CBC w/ Diffon 05-14-2017 Creatinine The following orders were created for panel order CBC w/ Diff. Procedure Abnormality Status --------- ------ CBC Auto Differential[[id number] ] Abnormal Final result Please view results for these tests on the individual orders. Invalid Interpretation Code [facility] CT ABDOMEN PELVIS WITH IV [...] appendix in the left lower pelvis.Workstation ID: [id number] by: ERROL ANN on ThuMay 14, 2017 4:08:10 PM ESTTranscribed by: ERROL ANN on ThuMay 14, 2017 4:08:10 PM ESTFinalized by: ERROL ANN on ThuMay 14, 2017 4:08:10 PM EST Normal [facility] Comment on above: Order Comment: Reaso n [...] at L1-L2 and L4-L5. Invalid Interpretation Code [facility] CT Abdomen Pelvis With IV Contrast Only Interface, [employer] - 05/14/2017 4:10 PM EST EXAMINATION: CT [...] in the left lower pelvis. Workstation ID: [id number] Invalid Interpretation Code [employer] CT Abdomen Pelvis With IV Contrast [...] in the left lower pelvis. Workstation ID: [id number] Invalid Interpretation Code [facility] Ruff Topon 05-14-2017 Extra Tube Hold for add-ons. Invalid Interpretation Code [facility] Hepatic Function Panel (LFT) on 05-14-2017 Alanine aminotransferase (ALT) 13 U/L Invalid Interpretation Code 0 - 40 U/L [facility] Albumin 4.8 g/dL Invalid Interpretation Code 3.2 - 5.2 g/dL [facility] Alkaline phosphatase (ALP) 102 U/L Invalid Interpretation Code 40 - 150 U/L [facility] Aspartate aminotransferase (AST) 20 U/L Invalid Interpretation Code 0 - 45 U/L [facility] Bilirubin (conjugated) mg/dL Invalid Interpretation Code 0 - 0.4 mg/dL [facility] Bilirubin (total) 0.2 mg/dL Invalid Interpretation Code 0 - 1.3 mg/dL [facility] Interpretation and review of laboratory results Normal Invalid Interpretation Code [facility] Protein 7.9 g/dL Invalid Interpretation Code 6 - 8 g/dL [facility] Lipaseon 05-14-2017 Lipase 137 U/L High 15 - 65 U/L [facility] [place] Topon 05-14-2017 [place] Top Invalid Interpretation Code [facility] [place] Draw[place] 05-14-2017 Creatinine The following orders were created for panel order [place] Draw. Procedure Abnormality Status --------- ------ Gold Top[[id number]] Final result [place] Top[[id number]] Final result [place] Top[[id number]] Final result [place] Top[[id number]] Final result Please view results for these tests on the individual orders. Invalid Interpretation Code [facility] Urinalysison 05-14-2017 Bilirubin, Urine Negative Invalid Interpretation Code Negative [facility] Blood, Urine Negative Invalid Interpretation Code Negative [facility] Interpretation and review of laboratory results Abnormal Invalid Interpretation Code [facility] Mucus, Urine Rare Invalid Interpretation Code None Seen, Rare /lpf [facility] Nitrite, Urine Negative Invalid Interpretation Code Negative [facility] RBCs, Urine 2 /hpf Invalid Interpretation Code 0 - 3 [facility] Squamous Epithelial 3 /hpf Invalid Interpretation Code 0 - 4 [facility] Urine, bacteria in sediment Rare Abnormal None Seen /hpf [facility] Urine, clarity Clear Invalid Interpretation Code Clear [facility] Urine, color Yellow Invalid Interpretation Code Colorless, Yellow [facility] Urine, glucose presence Negative Invalid Interpretation Code Negative mg/dL [facility] Urine, ketones presence Negative Invalid Interpretation Code Negative mg/dL [facility] Urine, leukocyte esterase presence Negative Invalid Interpretation Code Negative [facility] Urine, pH 5.0 [pH] Invalid Interpretation Code 5.0 - 7.0 [facility] Urine, protein Negative Invalid Interpretation Code Negative mg/dL [facility] Urine, specific gravity 1.006 1 Invalid Interpretation Code 1.005 - 1.025 [facility] Urine, urobilinogen <2.0 Invalid Interpretation Code <2.0 mg/dL [facility] WBCs, Urine 1 /hpf Invalid Interpretation Code 0 - 5 [facility] Urinalysis Microscopic examination is performed on all urinalysis samples and only positive findings are reported. The test for blood on the chemical analytic portion of urinalysis may also be positive due to hemoglobinuria and myoglobinuria and if red blood cells are present they are quantified by microscopic examination. Invalid Interpretation Code [facility] Vital Signs Date Time Vital Sign Value Performing Clinician Facility 04-02-2023 19:20-0500 Diastolic blood pressure 74 mm[Hg] [facility] 04-02-2023 19:20-0500 Heart rate 91 /min [facility] 04-02-2023 19:20-0500 Respiratory rate 18 /min [facility] 04-02-2023 19:20-0500 SaO2% (BldA) [Mass fraction] 96 % [facility] 04-02-2023 19:20-0500 Systolic blood pressure 137 mm[Hg] [facility] 04-02-2023 13:45-0500 Body height 157.48 cm [facility] 04-02-2023 13:45-0500 Body temperature 97.6 [degF] [facility] 04-02-2023 13:45-0500 Body weight 54 kg [facility] 11-09-2022 16:30-0400 Diastolic blood pressure 81 mm[Hg] [facility] 11-09-2022 16:30-0400 Heart rate 78 /min [facility] 11-09-2022 16:30-0400 Respiratory rate 18 /min [facility] 11-09-2022 16:30-0400 SaO2% (BldA) [Mass fraction] 99 % [facility] 11-09-2022 16:30-0400 Systolic blood pressure 141 mm[Hg] [facility] 11-09-2022 13:47-0400 Body height 160.02 cm [facility] 11-09-2022 13:47-0400 Body temperature 98.2 [degF] [facility] 11-09-2022 13:47-0400 Body weight 54.2 kg [facility] 08-12-2022 13:15-0400 Diastolic blood pressure 68 mm[Hg] Sabrina Dee MD, MPH Work Phone: [facility] 08-12-2022 13:15-0400 Heart rate 67 /min Sabrina Dee MD, MPH Work Phone: [facility] 08-12-2022 13:15-0400 Respiratory rate 22 /min Sabrina Dee MD, MPH Work Phone: [facility] 08-12-2022 13:15-0400 SaO2% (BldA) [Mass fraction] 99 % Sabrina Dee MD, MPH Work Phone: [facility] 08-12-2022 13:15-0400 Systolic blood pressure 142 mm[Hg] Sabrina Dee MD, MPH Work Phone: [facility] 08-12-2022 11:45-0400 Body temperature 97.81 [degF] Sabrina Dee MD, MPH Work Phone: [phone] [address] 08-12-2022 10:34-0400 Body height 157.5 cm Sabrina Dee MD, MPH Work Phone: 4([phone] [place] [address] 06-16-2022 10:52-0400 Body mass index (BMI) [Ratio] 23.41 kg/m2 Sabrina Dee MD, MPH Work Phone: 5(750)[phone] [place] [address] 06-16-2022 10:52-0400 Body weight 58.06 kg Sabrina Dee MD, MPH Work Phone: 5([phone])[phone] [address] 06-16-2022 10:52-0400 Diastolic blood pressure 68 mm[Hg] Sabrina Dee MD, MPH Work Phone: [phone] [place] [address] 06-16-2022 10:52-0400 Heart rate 83 /min Sabrina Dee MD, MPH Work Phone: [phone] [place] [address] 06-16-2022 10:52-0400 SaO2% (BldA) [Mass fraction] 98 % Sabrina Dee MD, MPH Work Phone: [facility] 06-16-2022 10:52-0400 Systolic blood pressure 122 mm[Hg] Sabrina Dee MD, MPH Work Phone: [facility] 03-22-2022 16:51-0500 Diastolic blood pressure 61 mm[Hg] [facility] 03-22-2022 16:51-0500 Heart rate 98 /min [facility] 03-22-2022 16:51-0500 Respiratory rate 20 /min [facility] 03-22-2022 16:51-0500 SaO2% (BldA) [Mass fraction] 98 % [facility] 03-22-2022 16:51-0500 Systolic blood pressure 149 mm[Hg] [facility] 03-22-2022 14:59-0500 Body height 157.48 cm [facility] 03-22-2022 14:59-0500 Body temperature 97.9 [degF] [facility] 03-22-2022 14:59-0500 Body weight 56 kg [facility] 12-16-2021 11:53-0400 Body height 157.5 cm Sabrina Dee MD, MPH Work Phone: [facility] 12-16-2021 11:53-0400 Body mass index (BMI) [Ratio] 22.5 kg/m2 Sabrina Dee MD, MPH Work Phone: [facility] 12-16-2021 11:53-0400 Body weight 55.79 kg Sabrina Dee MD, MPH Work Phone: [facility] 12-16-2021 11:53-0400 Diastolic blood pressure 72 mm[Hg] Sabrina Dee MD, MPH Work Phone: [facility] 12-16-2021 11:53-0400 Heart rate 80 /min Sabrina Dee MD, MPH Work Phone: [facility] 12-16-2021 11:53-0400 SaO2% (BldA) [Mass fraction] 98 % Sabrina Dee MD, MPH Work Phone: [facility] 12-16-2021 11:53-0400 Systolic blood pressure 118 mm[Hg] Sabrina Dee MD, MPH Work Phone: [facility] 10-09-2021 20:00-0400 Body temperature 98.3 [degF] [facility] 10-09-2021 20:00-0400 Diastolic blood pressure 68 mm[Hg] [facility] 10-09-2021 20:00-0400 Heart rate 86 /min [facility] 10-09-2021 20:00-0400 Respiratory rate 20 /min [facility] 10-09-2021 20:00-0400 SaO2% (BldA) [Mass fraction] 100 % [facility] 10-09-2021 20:00-0400 Systolic blood pressure 110 mm[Hg] [facility] 10-09-2021 14:19-0400 Body height 157.48 cm [facility] 10-09-2021 14:19-0400 Body weight 56.69 kg [facility] 10-04-2021 19:00-0400 Diastolic blood pressure 66 mm[Hg] [facility] 10-04-2021 19:00-0400 Heart rate 72 /min [facility] 10-04-2021 19:00-0400 Respiratory rate 16 /min [facility] 10-04-2021 19:00-0400 SaO2% (BldA) [Mass fraction] 96 % [facility] 10-04-2021 19:00-0400 Systolic blood pressure 110 mm[Hg] [facility] 10-04-2021 15:16-0400 Body temperature 97.9 [degF] [facility] 10-04-2021 15:15-0400 Body height 157.48 cm [facility] 10-04-2021 15:15-0400 Body weight 54.5 kg [facility] 09-25-2021 19:58-0400 Heart rate 82 /min [facility] 09-25-2021 18:04-0400 Body temperature 98.1 [degF] [facility] 09-25-2021 18:00-0400 Body height 157.48 cm [facility] 09-25-2021 18:00-0400 Body weight 55.5 kg [facility] 09-25-2021 18:00-0400 Diastolic blood pressure 107 mm[Hg] [facility] 09-25-2021 18:00-0400 Respiratory rate 18 /min [facility] 09-25-2021 18:00-0400 SaO2% (BldA) [Mass fraction] 98 % [facility] 09-25-2021 18:00-0400 Systolic blood pressure 141 mm[Hg] [facility] 08-11-2021 18:12-0400 Heart rate 86 /min [facility] 08-11-2021 18:00-0400 Diastolic blood pressure 69 mm[Hg] [facility] 08-11-2021 18:00-0400 Respiratory rate 20 /min [facility] 08-11-2021 18:00-0400 SaO2% (BldA) [Mass fraction] 98 % [facility] 08-11-2021 18:00-0400 Systolic blood pressure 114 mm[Hg] [facility] 08-11-2021 16:06-0400 Body height 170.18 cm [facility] 08-11-2021 16:06-0400 Body mass index (BMI) [Ratio] 19.6 kg/m2 [facility] 08-11-2021 16:06-0400 Body temperature 97.9 [degF] [facility] 08-11-2021 16:06-0400 Body weight 57 kg [facility] 03-19-2021 14:30-0500 Body height 157.48 cm Mayra Ginty Other [employer] [facility] [employer] Other 03-19-2021 14:30-0500 Body mass index (BMI) [Ratio] 24.69 kg/m2 Marya Ginty Other [employer] Other 03-19-2021 14:30-0500 Body temperature 96 [degF] Marya Ginty Other [employer] Other 03-19-2021 14:30-0500 Body weight 61.24 kg Marya Gillnty Other [employer] Other 03-19-2021 14:30-0500 Respiratory rate 63 /min Marya Gillnty Other [employer] Other 03-19-2021 14:30-0500 SaO2% (BldA) [Mass fraction] 97 % Marya Gillnty Other [employer] Other 03-26-2020 21:05-0500 Pulse Oximetry 100 % [facility] [place] 03-26-2020 21:01-0500 BP Diastolic 68 mm[Hg] [facility] [place] 03-26-2020 21:01-0500 BP Systolic 152 mm[Hg] [facility] , [place] 03-26-2020 17:32-0500 BMI (Body Mass Index) 22.86 kg/m2 [facility] 03-26-2020 17:32-0500 Body weight 56.7 kg [facility] [place] 03-26-2020 17:32-0500 Height 157.5 cm [facility] [place] 03-26-2020 17:32-0500 Pulse (Heart Rate) 90 /min [facility] [place] 03-26-2020 17:32-0500 Respiratory Rate 18 /min [facility] [place] 03-26-2020 12:39-0500 Body Temperature 98.71 [degF] [facility] [employer], [place] 08-25-2019 08:30-0400 Body Temperature 98.01 [degF] [facility] [place] 08-25-2019 08:30-0400 BP Diastolic 75 mm[Hg] Rajeev [facility] [place] 08-25-2019 08:30-0400 BP Systolic 117 mm[Hg] Rajeev [facility] , [place] 08-25-2019 08:30-0400 Pulse (Heart Rate) 84 /min [facility]ev [facility] [place] 08-25-2019 08:30-0400 Pulse Oximetry 97 % Rajeev Tinoco [facility] , [place] 08-25-2019 08:30-0400 Respiratory Rate 16 /min Rajeev Tinoco [facility], [place] 08-25-2019 05:30-0400 BMI (Body Mass Index) 25.88 kg/m2 Rajeev Tinoco [facility], [place] 08-25-2019 05:30-0400 Body weight 64.18 kg Rajeev [facility] , [place] 08-22-2019 16:00-0400 Height 157.5 cm Rajeev [place], [place] 03-04-2018 13:09-0500 BP Diastolic 69 mm[Hg] [facility] 03-04-2018 13:09-0500 BP Systolic 108 mm[Hg] [facility] 03-04-2018 13:09-0500 Pulse (Heart Rate) 79 /min [facility] 03-04-2018 13:09-0500 Pulse Oximetry 99 % [facility] 03-04-2018 13:09-0500 Respiratory Rate 16 /min [facility] 03-04-2018 11:01-0500 BMI (Body Mass Index) 22.86 kg/m2 [facility] 03-04-2018 11:01-0500 Body Temperature 98.6 [degF] [facility] 03-04-2018 11:01-0500 Height 157.5 cm [facility] 03-04-2018 11:01-0500 Weight 56.7 kg [facility] 08-24-2017 20:58-0400 BP Diastolic 64 mm[Hg] [facility] 08-24-2017 20:58-0400 BP Systolic 126 mm[Hg] [facility] 08-24-2017 20:58-0400 Pulse (Heart Rate) 67 /min [facility] 08-24-2017 20:58-0400 Pulse Oximetry 98 % [facility] 08-24-2017 20:58-0400 Respiratory Rate 18 /min [facility] 08-24-2017 13:41-0400 BMI (Body Mass Index) 21.58 kg/m2 [facility] 08-24-2017 13:41-0400 Body Temperature 98.29 [degF] Errol Walton [facility] 08-24-2017 13:41-0400 Height 157.5 cm Errol Walton [facility] 08-24-2017 13:41-0400 Weight 53.52 kg Errol Walton [facility] 06-09-2017 09:32-0400 BP Diastolic 73 mm[Hg] [facility] 06-09-2017 09:32-0400 BP Systolic 106 mm[Hg] [facility] 06-09-2017 09:32-0400 Pulse (Heart Rate) 86 /min [facility] 06-09-2017 09:32-0400 Pulse Oximetry 99 % [facility] 06-09-2017 09:32-0400 Respiratory Rate 16 /min [facility] 06-09-2017 07:20-0400 BMI (Body Mass Index) 21.87 kg/m2 [facility] 06-09-2017 07:20-0400 Body Temperature 98.4 [degF] [facility] 06-09-2017 07:20-0400 Height 157.5 cm [facility] 06-09-2017 07:20-0400 Weight 54.23 kg [facility] 05-15-2017 08:11-0500 Body Temperature 98.01 [degF] David [facility] 05-15-2017 08:11-0500 BP Diastolic 69 mm[Hg] David Gibson [facility] 05-15-2017 08:11-0500 BP Systolic 116 mm[Hg] David Paige [facility] 05-15-2017 08:11-0500 Pulse (Heart Rate) 76 /min David Paige [facility] 05-15-2017 08:11-0500 Pulse Oximetry 95 % David Paige [facility] 05-15-2017 08:11-0500 Respiratory Rate 15 /min David Paige [facility] 05-14-2017 12:58-0500 BMI (Body Mass Index) 21.95 kg/m2 David Paige [facility] 05-14-2017 12:58-0500 Height 157.5 cm David Gibson [facility] 05-14-2017 12:58-0500 Weight 54.43 kg David Gibson [facility] Encounters Encounter Date Encounter Type Care Provider Facility Start: 04-02-2023 End: 04-02-2023 Emergency department patient visit NON STAFF Facility:[facility] Start: 04-02-2023 End: 04-02-2023 Emergency department patient visit [facility] Work Phone: Start: 03-27-2023 End: 03-28-2023 Emergency department patient visit [facility] Start: 03-27-2023 End: 03-27-2023 Emergency department patient visit [facility] Start: 11-09-2022 End: 11-09-2022 Emergency department patient visit Nicole Posadas Facility:[facility] Start: 11-09-2022 End: 11-09-2022 Emergency department patient visit [facility] Work Phone: Start: 08-12-2022 ambulatory [facility] Facility:[facility] Start: 08-12-2022 End: 08-12-2022 Subsequent hospital visit by physician Sabrina Dee MD, MPH Work Phone: [facility] Start: 06-16-2022 ambulatory [facility] Facility:[facility] Start: 06-16-2022 End: 06-16-2022 Office outpatient visit 40 minutes Sabrina Dee MD, MPH Work Phone: [facility] [place] [facility] Comment on above: Osteoporosis without current pathological fracture, unspecified osteoporosis type (Primary Dx); Alcohol-induced chronic pancreatitis Start: 06-13-2022 End: 06-13-2022 ambulatory ARIC DEMIAN . Facility:[facility] Start: 03-29-2022 End: 03-29-2022 ambulatory ELENITA ROLLINS . Facility:[facility] Start: 03-22-2022 End: 03-22-2022 Emergency department patient visit [facility] Work Phone: Start: 03-19-2022 End: 03-19-2022 ambulatory MONIK PARKINSON . Facility:[facility] Start: 01-28-2022 ambulatory SABRINA DEE Fa cility:[facility] Start: 01-28-2022 End: 01-28-2022 Subsequent hospital visit by physician Sabrina Dee MD, MPH Work Phone: [facility] Start: 01-27-2022 ambulatory [facility] Facility:[facility] Start: 01-27-2022 End: 01-27-2022 Subsequent hospital visit by physician Sabrina Dee MD, MPH Work Phone: [facility] [place] Comment on above: Arrived Start: 01-15-2022 End: 01-15-[address] HELLEN KITCHEN . Facility:[facility] Start: 12-16-2021 ambulatory [facility] Facility:[facility] Start: 12-16-2021 End: 12-16-2021 Office outpatient visit 25 minutes Sabrina Dee MD, MPH Work Phone: [facility] Comment on above: Recurrent acute panc reatitis (Primary Dx); History of smoking 25-50 pack years; Alcohol-induced chronic pancreatitis; Epigastric pain; Encounter for screening colonoscopy Start: 12-13-2021 End: 12-14-2021 ambulatory NICK COY Facility:[facility] Start: 12-05-2021 End: 12-05-[address] RAJEEV KELLOGG Facility:[facility] Start: 10-11-2021 End: 10-12-[address] RAJEEV KELLOGG Facility:[facility] Start: 10-04-2021 End: 10-04-2021 Emergency department patient visit [facility] Start: 09-30-2021 End: 09-30-2021 ambulatory NAT MAXWELL . Facility:[facility] Start: 09-25-2021 End: 09-25-2021 Emergency department patient visit [facility] Start: 09-17-2021 End: 09-17-[address] RAJEEV KELLOGG Facility:[facility] Start: 08-26-2021 End: 08-26-2021 ambulatory NICK COY Facility:[facility] Start: 08-22-2021 End: 08-22-[address] TRI HANSON Facility:[facility] Start: 08-13-2021 End: 08-13-2021 ambulatory AGUSTIN MADRIGAL Facility:[facility] Start: 08-11-2021 End: 08-11-2021 Emergency department patient visit [facility] Start: 07-31-2021 End: 07-31-2021 ambulatory YANNI FRASER Facility:[facility] Start: 07-19-2021 End: 07-19-2021 ambulatory LYNNE PERDOMO Facility:[facility] Start: 03-19-2021 End: 03-19-2021 ambulatory Marya Ginty Other [employer] Other Start: 03-19-2021 Office outpatient visit 15 minutes Mayra Ginty [facility] Start: 05-22-2020 End: 05-22-2020 Orders Only Izabela Grant Work Phone: [facility] Start: 03-26-2020 Emergency department patient visit [facility] Start: 03-26-2020 End: 03-26-2020 Emergency department patient visit [facility] Comment on above: Acute biliary pancre atitis, unspecified complication status (Primary Dx) Start: 08-22-2019 End: 08-25-2019 Evaluation and management of inpatient [facility] Start: 08-22-2019 End: 08-25-2019 Evaluation and management of inpatient Rajeev Grant [facility] Work Phone: [facility] Comment on above: Acute pancreatitis, unspecified complication status, unspecified pancreatitis type (Primary Dx); Pain of upper abdomen Start: 03-08-2018 End: 03-09-2018 Evaluation and management of inpatient [facility] Start: 03-04-2018 End: 03-04-2018 Patient encounter procedure [facility] Start: 03-04-2018 End: 03-04-2018 Emergency department patient visit Keerthi Nguyen Work Phone: [facility] Comment on above: Acute on chronic see creatitis (HCC) (Primary Dx) Start: 08-24-2017 End: 08-24-2017 Emergency department patient visit [facility] Start: 08-24-2017 End: 08-24-2017 Emergency department patient visit Errol Walton Work Phone: [facility] Start: 06-09-2017 End: 06-09-2017 Emergency department patient visit [facility] Start: 06-09-2017 End: 06-09-2017 Emergency department patient visit Joana Mendes Work Phone: [facility] Start: 05-14-2017 End: 05-15-2017 Patient encounter procedure [facility] Start: 05-14-2017 End: 05-15-2017 Emergency department patient visit David Gibson Work Phone: [facility] Observation Procedures Date Procedure Procedure Detail [...] TINOCO Start: 08-22-2019 NOTIFY PHYSICIAN (SPECIFY) RAJEEV TINOCO Start: 08-22-2019 PULSE OXIMETRY SPOT CHECK RAJEEV TINOCO Start: 08-22-2019 REASON FOR NO MECHAN ICAL VTE PROPHYLAXIS RAJEEV TINOCO Start: 08-22-2019 TELEMETRY MONITORING MARINO TINOCO Start: 08-22-2019 TOBACCO CESSATION EDUCATION RAJEEV TINOCO [...] Phone: Start: 03-04-2018 End: 03-04-2018 Urinalysis Konstantin Morris o Work Phone: Start: 03-04-2018 End: 03-04-2018 Basic [...] Dee MD, MPH [address] [place] [address] [facility] Start: 11-07-2022 Influenza vaccination INFLUENZA VACCINE (Season Ended) [facility] Start: 09-25-2022 Lipid panel LIPID SCREENING [facility] Start: 07-29-2022 End: 06-17-2023 UPPER EUS UPPER EUS GI/Bronch Routine Alcohol-induced chronic pancreatitis Expected: 07/29/2022, Expires: 06/17/2023 [facility] Comment on above: Expected: 07/29/2022, Expires: 4 Start: 07-28-2022 End: 01-28-2023 Screening colonoscopy SCREENING COLONOSCOPY GI/Bronch Routine Encounter for screening colonoscopy Expected: 07/28/2022, Expires: 01/28/2023 [facility] Comment on above: Expected: 07/28/2022, Expires: 3 Start: 07-28-2022 End: 07-28-2022 Patient encounter procedure 07/28/2022 Appointment Endoscopy Julia Tyler MD [address] [address] [facility] Start: 06-16-2022 End: 12-16-2022 Screening colonoscopy SCREENING COLONOSCOPY GI/Bronch Routine Encounter for screening colonoscopy Expected: 06/16/2022, Expires: 12/16/2022 [facility] Comment on above: Expected: 06/16/2022, Expires: 3 Start: 06-16-2022 End: 06-16-2022 Patient encounter procedure 06/16/2022 Office Visit Gastroenterology Sabrina Dee MD, MPH [address] [place] [address] [facility] Start: 03-22-2022 Bacteria identified in Urine by Culture [facility] Start: 01-28-2022 End: 01-28-2022 Patient encounter procedure 01/28/2022 Appointment Endoscopy Sabrina Dee MD, MPH [address] [place] [address] [facility] Start: 01-28-2022 Subsequent hospital visit by physician 01/28/2022 Hospital Encounter Endoscopy Sabrina Dee MD, MPH [address] [place] [id number] Arrived [facility] Comment on above: Arrived Start: 01-14-2022 End: 12-16-2022 UPPER EUS UPPER EUS GI/Bronch Routine Recurrent acute pancreatitis Expected: 01/14/2022, Expires: 12/16/2022 [facility] Comment on above: Expected: 01/14/2022, Expires: 3 Start: 12-16-2021 End: 12-16-2022 Bone density scan BONE DENSITY AXIAL (HIP, PELVIS, SPINE) Imaging Routine Recurrent acute pancreatitis History of smoking 25-50 pack years Expected: 12/16/2021, Expires: 12/16/2022 [facility] Comment on above: Expected: 12/16/2021, Expires: 3 Start: 11-07-2021 Influenza vaccination INFLUENZA VACCINE (#1) [facility] Start: 10-09-2021 CT of abdomen and pelvis without contrast CT abdomen pelvis [facility] Start: 10-09-2021 End: 10-09-2021 Emergency department patient visit Departed Emergency [facility] Start: 11-13-2020 COVID-19 VACCINE (3 - Booster for Pfizer series) COVID-19 VACCINE (3 - Booster for Pfizer series) [facility] Start: 11-08-2019 Influenza vaccination [place] Start: 11-08-2019 Influenza vaccination given Sequential Influenza Vaccine (#1) [facility] Start: 06-21-2019 Administration of herpes zoster vaccine Zoster Vaccines (1 of 2) [facility] Start: 06-21-2019 Screening for malignant neoplasm of breast Breast cancer screen [place] Start: 06-21-2019 Screening for malignant neoplasm of colon [place] Start: 06-21-2019 Screening for malignant neoplasm of lung LUNG CANCER SCREENING [facility] Start: 06-21-2019 Shingles Vaccine (1 of 2) Shingles Vaccine (1 of 2) [place] Start: 06-21-2019 Zoster vaccine hzv live for subcutaneous use ZOSTER (SHINGLES) VACCINE (1 of 2) [facility] Start: 11-07-2017 Influenza vaccination [facility] Start: 11-07-2016 Influenza vaccination SEQUENTIAL INFLUENZA VACCINE (#1) [facility] Start: 12-10-2014 Screening for malignant neoplasm of cervix PAP SMEAR [facility] Start: 2014 Screening for malignant neoplasm of colon COLORECTAL CANCER SCREENING DISCUSSION [facility] Start: 01-01-2013 Screening for malignant neoplasm of breast MAMMOGRAM SCREENING DISCUSSION [facility] Start: 01-01-2013 Screening mammography Mammogram [facility] Start: 2009 Lipid panel Lipid screen [place] Start: 1990 Screening for malignant neoplasm of cervix [facility] Start: 1988 DTaP/Tdap/Td vaccine (1 - Tdap) DTaP/Tdap/Td vaccine (1 - Tdap) [place] Start: 1988 Third diphtheria, tetanus and acellular pertussis (DTaP) vaccination TDAP (ADULT) [facility] Start: 06-21-1987 Hepatitis C antibody, confirmatory test Hepatitis C Screening [facility] Start: 06-21-1987 Tetanus vaccination TETANUS [facility] Start: 1985 COVID-19 Vaccine (1 of 2) COVID-19 Vaccine (1 of 2) [facility] [facility] Start: [facility] HIV screening [facility] Start: 06-21-1975 Pneumococcal 0-64 years Vaccine (1 of 1 - PPSV23) Pneumococcal 0-64 years Vaccine (1 of 1 - PPSV23) [place], [place] Start: 06-21-1975 PNEUMOCOCCAL VACCINE SERIES (1 - PCV) PNEUMOCOCCAL VACCINE SERIES (1 - PCV) [facility] Start: 1972 History and physical examination, annual for health maintenance Wellness Visit [facility] Start: 1969 Hepatitis B vaccination HEP B VACCINE (1 of 3 - 3-dose series) [facility] Start: 1969 Hepatitis C screening [facility] Start: 1969 Tetanus vaccination [facility] CBC auto differential CBC auto d ifferential Lab Routine Daily until discontinued starting 08/23/2019, 3 completed [facility] [place] Comment on above: Daily until discontinued starting 2019, [address] ABDOMEN PELVIS W IV CONTRAST Additional Contrast? None CT ABDOMEN PELVIS W IV CONTRAST Additional Contrast? None Imaging STAT 03/26/2020 3:01 PM [facility] Subclasses IgG Subclasses A dd-On 05/14/2017 2:06 PM [facility] Initiate Oxygen Therapy Protocol Initiate Oxygen Therapy Protocol Respiratory Care Routine Daily until discontinued starting 08/22[facility]2019 [facility] above: Daily until discontinued starting 2019 Lipase Lipase Lab Routi ne Daily until discontinued starting 08/23/2019, 3 completed [facility] [place] Comment on above: Daily until discontinued starting 2019, 3 completed Patient Education [facility] Work Phone: Patient referral [facility] Work Phone: End: 08-22-2019 Pulse Oximetry Spot Check Pulse Oximetry Spot Check Respiratory Care Routine One Time for 1 Occurrences starting 08/22/2019 until 08/22/2019 [facility] on above: One Time for 1 Occurrences starting 08/07 until 08/22/2019 Screening colonoscopy SCREENING COLONOSCOPY GI/Bronch Routine Encounter for screening colonoscopy 01/28/2022 9:[address] [facility] Immunizations Immunization Date Immunization Notes Care Provider Fa joy 12-23-2015 influenza, injectabl e, quadrivalent, contains preservative Sabrina Dee MD, MPH Work Phone: [facility] 12-23-2015 influenza virus vaccine, unspecified formulation Sabrina Dee MD, MPH Work Phone: [facility] 12-15-2014 influenza virus vaccine, unspecified formulation Sabrina Dee MD, MPH Work Phone: [facility] Payers Date Payer Category Payer Self-pay [id number] 2019 Unknown [employer] [place] MEDICA[place] xxxxxxxxxxx 2019-Present [phone] CLAIMS DEPARTMENT [address] [place] [address] xxxxxxxxxxx [id number] 2017 Unknown [id number] 2017 Unknown 1969 Unknown [id number] 2.16.840.1.217437.3.579.2.900 1969 Unknown [id number] 2.16.840.1.313258.3.579.2.900 1969 Unknown [id number] 2.16.840.1.151364.3.579.2.900 1969 Unknown [id number] 2.16.840.1.752899.3.579.2.900 1969 Unknown [id number] 2.16.840.1.715031.3.579.2.900 1969 Unknown [id number] 2.16.840.1.259783.3.579.2.173 1969 Unknown [id number] 2.16.840.1.588981.3.579.2.173 1969 Unknown [id number] 2.16.840.1.129523.3.579.2.593 1969 Unknown [id number] 2.16.840.1.921935.3.579.2.593 1969 Unknown [id number] 2.16.840.1.836084.3.579.2.593 1969 Unknown [id number] 2.16.840.1.969236.3.579.2.593 1969 Unknown [id number] 2.16.840.1.147880.3.579.2.593 1969 Unknown [id number] 2.16.840.1.575005.3.579.2.593 1969 Unknown [id number] 2.16.840.1.097907.3.579.2.593 1969 Unknown [id number] 2.16.840.1.932804.3.579.2.593 1969 Unknown [id number] 2.16.840.1.238825.3.579.2.593 1969 Unknown [id number] 2.16.840.1.718741.3.579.2.593 1969 Unknown [id number] 2.16.840.1.656663.3.579.2.593 1969 Unknown [id number] 2.16.840.1.373561.3.579.2.593 1969 Unknown [id number] 2.16.840.1.022178.3.579.2.593 1969 Unknown [id number] 2.16.840.1.296715.3.579.2.593 1969 Unknown [id number] 2.16.840.1.488109.3.579.2.594 1969 Unknown [id number] 2.16.840.1.087269.3.579.2.594 1969 Unknown [id number] 2.16.840.1.798213.3.579.2.594 1969 Unknown [id number] 2.16.840.1.785665.3.579.2.594 1969 Unknown [id number] 2.16.840.1.387197.3.579.2.594 1969 Unknown [id number] 2.16.840.1.780916.3.579.2.594 1969 Unknown [id number] 2.16.840.1.129216.3.579.2.1286 1969 Unknown [id number] 2.16.840.1.495642.3.579.2.1286 1959 Medicaid [id number] 1959 Unknown [id number] Unknown [id number] 2.16.840.1.123453.3.579.2.531 Unknown [id number] 2.16.840.1.721485.3.579.2.531 Social History Date Type Detail Facility Start: 06-09-2017 End: 12-16-2021 Tobacco smoking status NCIS Current every day smoker [facility] History of tobacco use [facility] Start: 06-09-2017 End: 12-16-2021 Cigarettes smoked current (pack per day) - Reported [facility] Start: 1970 Sex Assigned At Not on file O [facility] Start: 08-22-2019 End: 08-12-2022 Alcohol intake Current non-drinker of alcohol (finding) [facility] Exposure to SARS-CoV -2 (event) Unable to assess [facility] Start: 03-08-2018 End: 12-16-2021 Tobacco use and exposure Never used [facility] Start: 07-24-2014 Tobacco Comment Smokes < 1/2 p pd, smoker for 30+ years [facility] Start: 07-24-2014 Alcohol Comment Prior heavy dr carrillo, quit 8 years ago [facility] Sex Assigned At Sex Assigned At [facility] Other Start: 09-25-2021 End: 11-09-2022 Tobacco smoking status NCIS Smoker (finding) [facility] Start: 1970 Sex Assigned At Female F [facility] Start: 05-09-2016 Alcohol Comment been sober for 9 years [facility] Start: 04-02-2023 Tobacco smoking stat us NCIS Current some day smoker [facility] Clinical Notes 10-08-2019 to 08-12-2022 Sabrina [...] female seen in the pre-procedure area at [facility]. The indication for endoscopic evaluation [...] Laterality: N/A; Surgeon: Jose Ty MD; Location: [facility] EGD W/ ULTRASOUND N/A 02/14/2015 Laterality: N/A; Surgeon: Pineda Troy MD; Location: [facility] CHOLECYSTECTOMY CHOLECYSTECTOMY, LAPAROSCOPIC HYSTERECTOMY MEDICATIONS: Current Outpatient Medications Medication Instructions Amitriptyline (ELAVIL) 25 mg, Oral, DAILY AT BEDTIME Ergocalciferol (VITAMIN D2) 50,000 Units, Oral, WEEKLY omeprazole (PRILOSEC) 20 mg, Oral, DAILY Pancreatic enzymes (Creon) 10179-[address] units Cap [address] Particles capsule 48,000 Units, Oral, 3 TIMES DAILY WITH MEALS Current Outpatient Medications: omeprazole [address] capsule, Take 1 capsule by mouth daily., Disp: 30 capsule, Rfl: 6 amitriptyline 10 MG tablet, Take 2.5 tablets by mouth at bedtime., Disp: 30 tablet, Rfl: 11 ergocalciferol 1.25 MG (36555 UT) capsule, Take 1 capsule by mouth once a week for 8 doses., Disp: 8 capsule, Rfl: 0 Pancreatic enzymes (Creon) 83396-[address] Particles capsule, Take 2 [...] Monitored Anesthesia Care. Sabrina Dee MD, MPH [facility] 08-12-2022 History and physical note ENDOSCOPIC PREPROCEDURE HISTORY AND PHYSICAL HISTORY OF PRESENT ILLNESS: Chioma Rainey is a 52 y.o. female seen in the pre-procedure area at [facility]. The indication for endoscopic evaluation [...] Laterality: N/A; Surgeon: Jose Ty MD; Location: [facility] EGD W/ ULTRASOUND N/A 02/14/2015 Laterality: N/A; Surgeon: Pineda Troy MD; Location: [facility] CHOLECYSTECTOMY CHOLECYSTECTOMY, LAPAROSCOPIC HYSTERECTOMY MEDICATIONS: Current Outpatient Medications Medication Instructions Amitriptyline (ELAVIL) 25 mg, Oral, DAILY AT BEDTIME Ergocalciferol (VITAMIN D2) 50,000 Units, Oral, WEEKLY omeprazole (PRILOSEC) 20 mg, Oral, DAILY Pancreatic enzymes (Creon) 73152-[address] units [address] Particles capsule 48,000 Units, Oral, 3 TIMES DAILY WITH MEALS Current Outpatient Medications: omeprazole [address] capsule, Take 1 capsule by mouth daily., Disp: 30 capsule, Rfl: 6 amitriptyline 10 MG tablet, Take 2.5 tablets by mouth at bedtime., Disp: 30 tablet, Rfl: 11 ergocalciferol 1.25 MG (73483 UT) capsule, Take 1 capsule by mouth once a week for 8 doses., Disp: 8 capsule, Rfl: 0 Pancreatic enzymes (Creon) 45680-[address] units [address] Particles capsule, Take 2 [...] MD, MPH documented in this encounter [facility] 08-12-2022 Nurse Note PT Given discharge paperwork and reviewed per MD and nurse. Irrigation Equipment Remover available.Diet and restrictions reviewed as well. Venous access removed no complications noted. Ok to d/c Anesthesia and procedural MD. documented in this encounter [facility] 08-12-2022 Nurse Surgical operation note PT Given discharge paperwork and reviewed per MD and nurse. Irrigation Equipment Remover available.Diet and restrictions reviewed as well. Venous access removed no complications noted. Ok to d/c Anesthesia and procedural MD. [facility] 06-16-2022 History of Presen t illness Narrative This Statement Clerks Supervisor verified the patients name and date of [...] for pain management 5. Prior evaluation at [facility] for TPIAT and was not a candidate 6. Last CT was at [facility] in 05/2019: No calcification in [...] (human immunodeficiency virus infection), Hyperlipidemia, Hyperthyroidism, Hypothyroidism, [place] (myocardial infarction), Migraine, PEGGY (obstructive sleep apnea), [...] amitriptyline 10 MG tablet, ergocalciferol 1.25 MG (24148 UT) capsule, and Pancreatic enzymes (Creon) 95739-[address] units [address] Particles capsule. Allergies: She [...] Hepatology, and Nutrition documented in this encounter [facility] 06-16-2022 Instructions Sabrina Dee MD, MPH - 06/16/2022 11:00 AM EDT Schedule EUS celiac plexus block; EGD dilation Referral to endocrinology; appointment to be scheduled Return to clinic in Mar 2023 Smoking cessation Vitamin D 2000 units daily Calcium supplement 1 gram daily Omeprazole (Prilosec) 20mg daily, take at least 30 mins before dinner documented in this encounter [facility] 01-28-2022 Miscellaneous Notes Attending physician in room speaking with patient and family on results. Attending physician ok for discharge. Pt ambulated unassisted with steady gait and balance. IV removed and discharge instructions given with verbal ok by patient of understanding. Pt discharged via w/c with transit bus driver from unit. Dr dee aware patient ready for results Updated dr goins on patient pain and received new orders documented in this encounter [facility] 01-28-2022 Note Formatting of this n ote might be different from the original. Attending physician in room speaking with patient and family on results. Attending physician ok for discharge. Pt ambulated unassisted with steady gait and balance. IV removed and discharge instructions given with verbal ok by patient of understanding. Pt discharged via w/c with transit bus driver from unit. [facility] 01-28-2022 Note Formatting of this n ote might be different from the original. Dr dee aware patient ready for results [facility] 01-28-2022 Note Formatting of this n ote might be different from the original. Updated dr goins on patient pain and received new orders [facility] 01-28-2022 History and physical note ENDOSCOPIC PREPROCEDURE HISTORY AND PHYSICAL HISTORY OF PRESENT ILLNESS: Chioma Rainey is a 51 y.o. female seen in the preoprocedure area at [facility]. The indication for endoscopic evaluation [...] 50,000 Units, Oral, WEEKLY Pancreatic enzymes (Creon) [address] Particles capsule 48,000 Units, Oral, 3 TIMES DAILY WITH MEALS Current Outpatient Medications: amitriptyline 10 MG tablet, Take 2.5 tablets by mouth at bedtime., Disp: 30 tablet, Rfl: 11 Pancreatic enzymes (Creon) 10117-[address] units [address] Particles capsule, Take 2 capsules by mouth 3 times daily with meals., Disp: 180 capsule, Rfl: 0 ergocalciferol 1.25 MG (39304 UT) capsule, Take 1 capsule by mouth [...] Monitored Anesthesia Care. Sabrina Dee MD, MPH [facility] 01-28-2022 History and physical note ENDOSCOPIC PREPROCEDURE HISTORY AND PHYSICAL HISTORY OF PRESENT ILLNESS: Chioma Rainey is a 51 y.o. female seen in the preoprocedure area at [facility]. The indication for endoscopic evaluation includes: Recurrent acute pancreatitis PAST MEDICAL HISTORY: Past Medical History: Diagnosis Date Anemia Depression H. pylori infection Neutrophilic leukocytosis Pancreatitis SURGICAL HISTORY: Past Surgical History: Procedure Laterality Date EGD W/ ULTRASOUND N/A 12/01/2019 Laterality: N/A; Surgeon: Sabrina Dee MD, MPH; Location: [facility] EGD W/ ULTRASOUND N/A 04/23/2016 Laterality: N/A; Surgeon: Pineda Troy MD; Location: [facility] EGD W/ ULTRASOUND N/A 01/23/2016 Laterality: N/A; Surgeon: Pineda Troy MD; Location: [facility] CHANGE TUBE GASTROSTOMY N/A 08/20/2015 Laterality: N/A; Surgeon: Yanni Alonzo MD; Location: [facility] EGD DIAGNOSTIC N/A 06/25/2015 Laterality: N/A; Surgeon: Pineda Tryo MD; Location: [facility] EGD W/ PLACEMENT [...] 50,000 Units, Oral, WEEKLY Pancreatic enzymes (Creon) [address] Particles capsule 48,000 Units, Oral, 3 TIMES DAILY WITH MEALS Current Outpatient Medications: amitriptyline 10 MG tablet, Take 2.5 tablets by mouth at bedtime., Disp: 30 tablet, Rfl: 11 Pancreatic enzymes (Creon) 3[address]-[address] Particles capsule, Take 2 capsules by mouth 3 times daily with meals., Disp: 180 capsule, Rfl: 0 ergocalciferol 1.25 MG (61137 UT) capsule, Take 1 capsule by mouth [...] Dee MD, MPH documented in this encounter [facility] 12-16-2021 History of Presen t illness [...] for pain management 5. Prior evaluation at [facility] for TPIAT and was not a candidate 6. Last CT was at [facility] in 05/2019: No calcification in [...] (human immunodeficiency virus infection), Hyperlipidemia, Hyperthyroidism, Hypothyroidism, [place] (myocardial infarction), Migraine, PEGGY (obstructive sleep apnea), [...] 10 MG tablet and Pancreatic enzymes (Creon) 00098-[address] Particles capsule. Allergies: She [...] in 6 months documented in this encounter [facility] 12-16-2021 Instructions Sabrina Dee MD, MPH - 12/16/2021 11:30 AM EDT Schedule DEXA scan Schedule colonoscopy Schedule EUS Start vitamin D 1,000 units daily. Start calcium supplements 1g daily RTC in 6 months documented in this encounter [facility] 03-19-2021 Evaluation note Encounter Date Diagnosis [...] Patient care instructions given in writting by [facility] At Home document [employer] Other 08-01-2020 History general Narrative - Reported* Type Description Date Medical History chronic pancreatitis Medical History chronic pain Medical History former alcoholic Surgical History [facility]- [facility] Surgical History GALLBLADDER Surgical History COLON-[facility] Hospitalization History see above [facility] Other Evaluation noteNo assessment information available [facility] Work Phone: Evaluation note* Diagnosis Recurrent acute pancreatitis- Primary Acute pancreatitis History of smoking 25-50 pack years Alcohol-induced chronic pancreatitis Chronic pancreatitis Epigastric pain Abdominal pain, epigastric Encounter for screening colonoscopy Special screening for malignant neoplasms, colon [facility] Recurrent acute pancreatitis Acute pancreatitis History of smoking 25-50 pack years Encounter for screening colonoscopy Special screening for malignant neoplasms, colon [facility] Diagnosis Other osteoporosis without current pathological fracture- Primary Recurrent acute pancreatitis Acute pancreatitis Encounter for screening colonoscopy Special screening for malignant neoplasms, colon [facility] Diagnosis Encounter for screening colonoscopy Special screening for malignant neoplasms, colon [facility] Diagnosis Osteoporosis without current pathological fracture, unspecified osteoporosis type- Primary Alcohol-induced chronic pancreatitis Chronic pancreatitis [facility] Diagnosis Alcohol-induced chronic pancreatitis Chronic pancreatitis [facility] Additional Instructions Fluids Phenergan if needed for nausea vomiting Bentyl as needed for abdominal pain Follow-up with your GI specialist call Thursday for appointment [facility] any [facility] persist [facility] Discharge instructions Additional Instructions Clear with diet today and advance as tolerated Push fluids Percocet if needed for severe pain Zofran or Phenergan if needed for nausea vomiting Keep your doctor's appointment tomorrow as planned Return here if you develop any increased pain, vomiting unable to be controlled, fevers, chills or any other [facility] Work Phone: Discharge Instructions * Jose Brown [...] Log into your personal health record on [email or web address] and enter E907 in the Education box to learn more about Abdominal Pain: Care Instructions. Current as of: August 03, 2015 Content Version: 11.2 7608-3430 popAD. Care instructions adapted under license by your healthcare professional. If you have questions about a medical condition or this instruction, always ask your healthcare professional. popAD disclaims any warranty or liability for your [...] Log into your personal health record on [email or web address] and enter H591 in the Education box to learn more about Nausea and Vomiting: Care Instructions. Current as of: August 03, 2015 Content Version: 11.2 1066-3406 popAD. Care instructions adapted under license by your healthcare professional. If you have questions about a medical condition or this instruction, always ask your healthcare professional. popAD disclaims any warranty or liability for your use of this information. Please review regarding your visit: Please note that your blood pressure during this ER visit was above 120/80 mmHg. YOUR BP READING WAS: 111/88 The [place] [employer] (AHA) defines a normal blood [...] review at your convenience for more information: [email or web address]/[email or web address] in this encounter* Discharge Instr - Other Orders - Poncho Sparks RN - 05/15/2017 1:20 PM EST Patient voices desire to leave hospital AMA. IV removed. Patient is ambulatory in care of spouse. [facility] hospitalist notified. in this encounter* Montse Khan CNP - 08/24/2017 Seek medical attention if you have worsening symptoms or other concerns. Please follow up with your family doctor or one of your choosing. You may find a provider through the [facility] Physician Referral Service by calling [phone] ([phone]) or by visiting [email or web address] Chioma, Thank You for choosing [facility]! The following attachments cannot be sent through Care Everywhere. * Nausea and Vomiting (Malagasy) * Gastroenteritis (Malagasy) * Diarrhea (Malagasy) in this encounter The following attachments cannot be sent through Care Everywhere. * Pancreatitis (Malagasy) in this encounter* Instructions* Laura Meyer RN - 08/25/2019 Patient Instructions: Activity: activity as tolerated Diet: encourage fluids GI specialist in 2 weeks. * Attachments The following attachments cannot be sent through Care Everywhere. * Pancreatitis: Chronic Diet (Malagasy) * Pancreatitis (Malagasy) documented in this encounter Assessments Diagnosis Epigastric [...] FoundDocuments on File Type Date Recorded Patient Senior Financial Expl anation Advance Directives and Living Will Power of Diagrammer Latest Code Status on File Code Status Date Activated Date Inactivated Comments Full Code 08/22/2019 4:27 PM Documents on File Type Date Recorded Patient Senior Financial Expl anation Advance Directives and Livin g [...] Documents on File Type Date Recorded Patient Senior Financial Expl anation ACP-Advance Directive ACP-Power of Diagrammer Latest Code Status on File Code Status [...] toradol is contraindicated. Called Dr. Hughes back, functional tester typewriters explained that patient is tolerating dilaudid. Dr. Hughes ordered dose of dilaudid increased from 0.25 mg to 0.5 mg q4 hrs PRN. * Ladan Stearns RN - 08/24/2019 1:27 PM EDT Patient walking in hallway at this time. * Ladan Stearns RN - 08/24/2019 9:14 AM EDT Needle Grader to patients bedside at this time to reassess pain. Patient sitting in chair, appears restless and is tearful. Patient states Dilaudid did not help the pain, states there is nothing functional tester typewriters can do as she deals with this often. Will continue to monitor patient. * Carley Camara, ALEA - CHIEF OF PRODUCTION - 08/24/2019 7:58 AM EDT Progress Note [...] Scheduled for EGD in September with her Elevator Inspector at [facility] Discharge Planning -- Home when stable Carley Camara APRN, OUTSOLE SPLICER-C Associated attestation - Rajeev Tinoco MD - 08/24/2019 5:30 PM EDT Attending Supervising Physician s Attestation Statement I have personally evaluated and examined the patient [id number] in conjunction with the nurse practitioner. I [...] Examined and Reviewed plan of care with OUTSOLE SPLICER. Directions and discussion about care and plans. [...] [place] RN - 08/23/2019 4:40 PM EDT Needle Grader contacted Dr. Tinoco regarding update that patient [...] he would not give order for Benedryl. Needle Grader let nurse know that if patient's c/o ithcing and redness doesn't improve in an hour, that functional tester typewriters will be calling back to update physician. * Brie Birmingham RN - 08/23/2019 3:20 PM EDT Needle Grader called into patient's room d/t patient c/o itching, feeling hot , and slight redness noted to BUE and face. Needle Grader contacted Dr. Tinoco office and left message with his nurse, asking for IV Benedryl and d/c of Lovenox. Patient thinks she may have had reaction to Lovenox in the past, and thatis the only other med she is currently taking here other than Dilaudid. Needle Grader did once again verify that patient usually [...] medically stable. Patient lives with her in [place]. She uses no DME and has no outside services currently in place. Patient provides for her own transportation needs and manages her medications. She is independent with her ADL's. PCP is [facility]. Patient has [employer] and denies needing further assistance with the cost of her medications. Discharge plan is home with no additional services at this time. Patient is a 'Full Code' status. She has no healthcare directives and voices that she is not interested in pursuing these documents further. EARLY CHILDHOOD ASSISTANT to monitor and assist with discharge planning [...] [place] RN - 08/23/2019 9:05 AM EDT Needle Grader made CHIEF OF PRODUCTION aware that patient is vomiting at this time since clear liquid diet added. Needle Grader to give Zofran and place patient back [...] weight loss, but states of weight gain. [id number] Discussed need to re-zero Pt bed to verify gain. She declined education needs states she has a GI doctor and RDN at the [facility]. Reports following the guidelines they recommended. States [...] 5. Fluid Accumulation-No significant fluid accumulation, 6. Donor Specialist Strength-Not measured Nutrition Risk Level: Moderate Nutrient Needs: Estimated Daily Total Kcal: 1002-7318(20-23/kg) Estimated Daily Protein (g): 65-75g(1.3-1.5g/kg) Estimated Daily [...] weight gain/23%, recommend to re-zero Pt bed [place] [facility] Wt: 110 lb (49.9 kg), % [place] [facility] 129% BMI Classification: BMI 25.0 - [...] Nausea or Vomiting, Patient/Family Education Contact Number: [id number] * Carley Camara APRN - CHIEF OF PRODUCTION - 08/23/2019 7:30 AM EDT Progress Note [...] Daily Discharge Plan--later today/tomorrow Carley Camara APRN, OUTSOLE SPLICER-C Associated attestation - Rajeev Tinoco MD - 08/23/2019 12:04 PM EDT Attending Supervising Physician s Attestation Statement I have personally evaluated and examined the patient [id number] in conjunction with the nurse practitioner. I [...] Examined and Reviewed plan of care with OUTSOLE SPLICER. Directions and discussion about care and plans. [...] Patient arrived to floor via w/c with [facility] staff d/t ED in process of running a code on another patient; supervisor sign shop states that report will be called when able. Needle Grader unable to get ahold of staff inED to put patient in park manager so that functional tester typewriters can transfer patient over to [facility]. Will try again shortly. documented in this encounter Chief Complaint and Reason for Visit Chief Complaint Abd Pain hx Pancreat itis Abd Pain Chief Complaint Abd Pain hx Pancreat itis Abd Pain rt side pain abd pain Chief Complaint nausea, pain , diarr hea Chief Complaint abd pain Chief Complaint lt side pain Reason for Referral Specialty Diagnoses / Procedures Referred By Zia t Referred To Contact Diagnoses Alcohol-induced chronic pancreatitis Procedures UPPER EUS OR ESOPHAGOGASTRODUODENOSCOPY US SCOPE W/ADJ STRXRS Sabrina Dee MD, MPH [address] [place] [phone] Referral ID Status Reason Start Date Expiration Date V isits Requested Visits Authorized [id number] New Request 06/16/2022 07/11/2023 1 1 Specialty Diagnoses / Procedures Referred By Zia t Referred To Contact Endocrinology, Diabetes & Metabolism Diagnoses Osteoporosis without current pathological fracture, unspecified osteoporosis type Sabrina Dee MD, MPH [address] [place] [phone] Referral ID Status Reason Start Date Expiration Date V isits Requested Visits Authorized [id number] New Request 06/16/2022 07/11/2023 1 1 Specialty Diagnoses / Procedures Referred By Kangac t Referred To Contact Diagnoses Encounter for screening colonoscopy Procedures SCREENING COLONOSCOPY OR COLON CA SCRN NOT HI RSK IND Sabrina Dee MD, MPH [address] [place] [phone] Referral ID Status Reason Start Date Expiration Date V isits Requested Visits Authorized [id number] New Request 12/16/2021 01/10/2023 1 1 Specialty Diagnoses / Procedures Referred By Contac t Referred To Contact Diagnoses Recurrent acute pancreatitis History of smoking 25-50 pack years Procedures BONE DENSITY AXIAL (HIP, PELVIS, SPINE) Sabrina Dee MD, MPH [address] [place] [address] Referral ID Status Reason Start Date Expiration Date V isits Requested Visits Authorized [id number] New Request 12/16/2021 01/10/2023 1 1 Specialty Diagnoses / Procedures Referred By Contac t Referred To Contact Diagnoses Recurrent acute pancreatitis Procedures UPPER EUS OR EGD US GUIDED TRANSMURAL INJXN/FIDUCIAL MARKER Sabrina Dee MD, MPH [address] [place] [address] Referral ID Status Reason Start Date Expiration Date V isits Requested Visits Authorized [id number] New Request 12/16/2021 01/10/2023 1 1 Additional [...] the patient. I discussed the patient with OUTSOLE SPLICER/PA. I agree with the OUTSOLE SPLICER/PA treatment plan. I agree with the OUTSOLE SPLICER/PA plan of care. I agree with the OUTSOLE SPLICER/PA dispo as documented. 46-year-old female presents with abdominal pain. She states I have chronic pancreatitis and this feels like a flareup . States that she took her usual Phenergan and Cary with minimal relief so came the emergency [...] She is going to follow with her od grinder operator with whom she has an appointment on [...] with the pain. Ill wait for now. Herendasher, ANKIT notified and aware at this time. This [...] different from the original. ED PROVIDER NOTE [facility] NAME: Chioma Rainey AGE: 46 y.o. : 1970 VISIT DATE: 06/09/2017 CSN: [id number] PCP: Elie Nichols MD Chief Complaint Patient [...] Phenergan suppository. She states that she took Cary last night. Last dose of Cary was around 9 PM last night. She [...] Surgeon: Romain Dumont MD; Location: [facility]; Service: HYSTERECTOMY ORIF PELVIS ORTHOPEDIC SURGERY WISDOM [...] Yellow Clarity, Urine Cloudy (A) Clear Specific Chilo 1.024 1.005 - 1.025 pH, Urine 5.0 [...] Phenergan suppositories. She has follow-up with her od grinder operator at [facility] in 2 weeks. Do not feel she [...] 1. Pineda Troy MD. Specialty: Gastroenterology [address] [id number] Contact information for after-discharge care Follow-up information has not been specified. New Prescriptions No medications on file (Please note that portions of this note may have been completed with a voice recognition software. Efforts were made to correct any errors, but occasionally words are mis-transcribed.) Jose Brown PA-C 06/09/17 0913 Pt states I have pancreatitis and I am having a flare up since last night . Pt relates mid abdominal pain that shoots into the left side of her back. Pt has been taking prescribed Cary without relief and states she has been vomiting.in this encounter I personally interviewed the patient. I personally examined the patient. I discussed the patient with OUTSOLE SPLICER/PA. I agree with the OUTSOLE SPLICER/PA treatment plan. I agree with the OUTSOLE SPLICER/PA plan of care. I agree with the OUTSOLE SPLICER/PA dispo as documented. I saw evaluate this [...] different from the original. ED PROVIDER NOTE [facility] NAME: Chioma Rainey AGE: 46 y.o. : 1970 VISIT DATE: 05/14/2017 CSN: [id number] PCP: Elie Nichols MD Chief Complaint Patient [...] Surgeon: Romain Dumont MD; Location: [facility]; Service: HYSTERECTOMY ORIF PELVIS ORTHOPEDIC SURGERY WISDOM [...] Colorless, Yellow Clarity, Urine Clear Clear Specific Chilo 1.006 1.005 - 1.025 pH, Urine 5.0 [...] in the left lower pelvis. Workstation ID: [id number] Procedures MDM This is a 46-year-old female [...] different from the original. ED PROVIDER NOTE [facility] NAME: Chioma Rainey AGE: 47 y.o. : 1970 VISIT DATE: 08/24/2017 CSN: [id number] PCP: Elie Nichols MD Chief Complaint Patient [...] Surgeon: Romain Dumont MD; Location: [facility]; Service: HYSTERECTOMY ORIF PELVIS ORTHOPEDIC SURGERY WISDOM [...] Yellow Clarity, Urine Hazy (A) Clear Specific Chilo 1.006 1.005 - 1.025 pH, Urine 7.0 [...] probably remain. 5. Small left adrenal adenoma. [employer] Workstation ID: [id number] Procedures MDM 47-year-old female [...] she did vomit. She was then given OR Phenergan and a dose of Toradol. She [...] Internal Medicine Why: follow up ER visit [address] [place] [address] Contact information for after-discharge care Follow-up information [...] any errors, but occasionally words are mis-transcribed.) Monste Khan CNP 08/24/172051 This RN went in [...] the patient. I discussed the patient with OUTSOLE SPLICER/PA. I agree with the OUTSOLE SPLICER/PA treatment plan. I agree with the OUTSOLE SPLICER/PA plan of care. I agree with the OUTSOLE SPLICER/PA dispo as documented. Formatting of this note may be different from the original. ED PROVIDER NOTE [facility] NAME: Chioma Rainey AGE: 47 y.o. : 1970 VISIT DATE: 03/04/2018 CSN: [id number] PCP: Elie Nichols MD Chief Complaint Patient [...] Surgeon: Romain Dumont MD; Location: [facility]; Service: HYSTERECTOMY ORIF PELVIS ORTHOPEDIC SURGERY WISDOM [...] Colorless, Yellow Clarity, Urine Clear Clear Specific Chilo 1.004 (L) 1.005 - 1.025 pH, Urine [...] Condition Comment Hospitalize Attending Provider or Group: [facility] [[id number]] Phone call required?: No Follow-up Information Follow-up [...] different from the original. Adonis Negro MD [facility] Hospitalists History and Physical Patient Name:Chioma Rainey MR #:[id number] :1970 Admit Date: [id number] Physicians: Elie Nichols [...] Surgeon: Romain Dumont MD; Location: [facility]; Service: HYSTERECTOMY ORIF PELVIS ORTHOPEDIC SURGERY WISDOM [...] Diagnoses Acute recurrent pancreatitis Rajeev Tinoco MD [address] [place] [address], [place] [address] [facility] Reason Comments Abdominal Pain Pt c/o abdominal abelino n, hx of pancreatitis. Onset of pain 10 days ago. Reason Comments Follow-up Patient C/O having f lare up's, Patient went to the ER on the 12/13/2021. Specialty Diagnoses / Procedures Referred By Contac t Referred To Contact Diagnoses Recurrent acute pancreatitis History of smoking 25-50 pack years Procedures BONE DENSITY AXIAL (HIP, PELVIS, SPINE) Sabrina Dee MD, MPH [address] [place] [phone] Referral ID Status Reason Start Date Expiration Date V isits Requested Visits Authorized [id number] New Request 12/16/2021 01/10/2023 1 1 Specialty Diagnoses / Procedures Referred By Contac t Referred To Contact Diagnoses Recurrent acute pancreatitis Procedures UPPER EUS OR EGD US GUIDED TRANSMURAL INJXN/FIDUCIAL MARKER Sabrina Dee MD, MPH [address] [place] [address] Referral ID Status Reason Start Date Expiration Date V isits Requested Visits Authorized [id number] New Request 12/16/2021 01/10/2023 1 1 Specialty Diagnoses / Procedures Referred By Kangac t Referred To Contact Diagnoses Encounter for screening colonoscopy Procedures SCREENING COLONOSCOPY OR COLON CA SCRN NOT HI RSK IND Sabrina Dee MD, MPH [address] [place] [address] Referral ID Status Reason Start Date Expiration Date V isits Requested Visits Authorized [id number] New Request 12/16/2021 01/10/2023 1 1 Reason Comments Follow-up 6 month follow up Specialty Diagnoses / Procedures Referred By Kagnac t Referred To Contact Diagnoses Alcohol-induced chronic pancreatitis Procedures UPPER EUS OR ESOPHAGOGASTRODUODENOSCOPY US SCOPE W/ADJ STRXRS Sabrina Dee MD, MPH [address] [place] [address] Referral ID Status Reason Start Date Expiration Date V isits Requested Visits Authorized [id number] New Request 06/16/2022 07/11/2023 1 1 INFORMATION SOURCE (unrecogn ized section and content) DATE CREATED AUTHOR 03/09/2018 [facility] DATE CREATED AUTHOR AUTHOR'S ORGANIZ ATION 03/28/2020 [facility] DATE CREATED AUTHOR AUTHOR'S ORGANIZ ATION 04/08/2021 [facility] DATE CREATED AUTHOR AUTHOR'S ORGANIZ ATION 06/18/2022 [facility] DATE CREATED AUTHOR AUTHOR'S ORGANIZ ATION 08/17/2022 [facility] DATE CREATED AUTHOR AUTHOR'S ORGANIZ ATION 03/29/2023 [facility] DATE CREATED AUTHOR AUTHOR'S ORGANIZ ATION 04/03/2023 [facility] Care Teams (unrecognized sec tion and [...] Active Christa Lopez PA-C Emergency Provider Active Automation Test Developer Relationship Specialty Start Date End Date Pineda Troy MD [address] [place] [address] PCP - Referring 1 Gastroenterology 09/25/17 [facility], Other [address] [place] [address] PCP - General 11/28/19 Automation Test Developer Relationship Specialty Start Date End Date Pineda Troy MD [address] [place] [address] PCP - Referring 1 Gastroenterology 09/25/17 [facility], Other [address] [place] [facility] [address] PCP - General 11/28/19 Automation Test Developer Relationship Specialty Start Date End Date Pineda Troy MD [address] [place] [phone] PCP - Referring 1 Gastroenterology 09/25/17 [facility] [address] [place] [facility] [address] PCP - General 11/28/19 Automation Test Developer Relationship Specialty Start Date End Date Pineda Troy MD [address] [place] [phone] PCP - Referring 1 Gastroenterology 09/25/17 [facility] [address] [place] [facility] [address] PCP - General 11/28/19 Team Status: Inactive Member Role Status Dates NON STAFF Primary Care Provider Active Agustin Llanes MD Emergency Provider Active Automation Test Developer Relationship Specialty Start Date End Date Pineda Troy MD [address] [place] [phone] PCP - Referring 1 Gastroenterology 09/25/17 [facility] [address] [place] [facility] [place] [address] PCP - General 11/28/19 Automation Test Developer Relationship Specialty Start Date End Date Pineda Troy MD [address] [place] [phone] PCP - Referring 1 Gastroenterology 09/25/17 [facility] [address] [place] [address] PCP - General 11/28/19 Team Status: Inactive [...] BE BASED ON THE PRIMARY CLINICAL RECORDS. [facility]. provides no warranty or guarantee of the accuracy or completeness of information in this document.
--- NOTE | 2023-04-08 05:04 | ED.ABDPAIN1 ---
HPI - Abdominal Pain General Chief Complaint: Abdominal Pain Stated Complaint: ABD PAIN Time Seen by Provider: 04/08/23 04:42 Source: patient Mode of arrival: walk-in Limitations: no limitations History of Present Illness HPI narrative: patient presents complaining of abdominal pain. States she has a pancreatic flare. complains of epigastric pain, emesis and episode of diarrhea. No fever. States she has also required esophageal dilatation. Feels like another flare of her pancreas this AM Related Data Home Medications Medication Instructions Recorded Confirmed famotidine 20 mg tablet (Pepcid) 20 mg PO BID PRN heartburn 04/03/23 04/08/23 oxycodone-acetaminophen 5 mg-325 tab 04/08/23 mg tablet Previous Rx's Medication Instructions Recorded albuterol sulfate 90 mcg/actuation 2 inh inhalation QID PRN shortness 11/20/22 aerosol inhaler (ProAir HFA) of breath or wheezing #8.5 grams cyclobenzaprine 10 mg tablet 10 mg PO TID PRN Pain 5 days #15 04/05/23 tabs prednisone 20 mg tablet 20 mg PO BID 5 days #10 tabs 04/05/23 Allergies Allergy/AdvReac Type Severity Reaction Status Date / Time haloperidol [From Haldol] Allergy Intermediate Hives Verified 04/08/23 04:40 ibuprofen [From Motrin] Allergy Intermediate Hives Verified 04/08/23 04:40 tramadol Allergy Intermediate Hives Verified 04/08/23 04:40 Penicillins Allergy Unknown Verified 04/08/23 04:40 ketorolac [From Toradol] AdvReac Severe Hives Verified 04/08/23 04:40 fentanyl AdvReac Intermediate Verified 04/08/23 04:40 Review of Systems ROS Status of ROS 10 or more systems reviewed and unremarkable except as noted in history and below [facility] Medical History (Updated 04/09/23 @ 00:00 by ) COPD (chronic obstructive pulmonary disease) ?J44.9 - Chronic obstructive pulmonary disease, unspecified (ICD-10) Chronic pancreatitis ?K86.1 - Other chronic pancreatitis (ICD-10) Smoker ?F17.200 - Nicotine dependence, unspecified, uncomplicated (ICD-10) History of gastrostomy tube placement Surgical History (Updated 04/03/23 @ 12:10 by Marni Farley) Hx of esophagogastroduodenoscopy ?Z98.890 - Other specified postprocedural states (ICD-10) H/O colonoscopy ?Z98.890 - Other specified postprocedural states (ICD-10) Hx of cholecystectomy ?Z90.49 - Acquired absence of other specified parts of digestive tract (ICD-10) H/O: hysterectomy ?Z90.710 - Acquired absence of both cervix and uterus (ICD-10) Social History (Updated 04/03/23 @ 12:08 by Marni Farley) Smoking status: Current every day smoker Non-prescribed substance use: denies use Highest level of school completed/degree received: high school graduate Exam Constitutional Vital Signs, click to edit/add: Last Vital Signs Temp 98.4 F 04/08/23 04:36 Pulse 73 04/08/23 06:50 Resp 16 04/08/23 06:50 BP 130/78 04/08/23 06:50 Pulse Ox 97 04/08/23 06:50 O2 Del Method Room Air 04/08/23 06:50 Common normals: no apparent distress, average body habitus, oriented x3, no limitations, healthy appearing and well nourished Eye Common normals: EOMs intact bilaterally and conjunctivae normal Respiratory Common normals: normal respiratory effort, no retractions, no use of accessory muscles and clear to auscultation bilaterally Cardio Common normals: regular rate, regular rhythm, S1 normal heart sound and S2 normal heart sound GI Common normals: Normal to inspection, nondistended, normoactive bowel sounds present and soft to palpation Other: mild epigastric tenderness. no guarding Extremity Common normals: normal to inspection and full ROM Neuro Common normals: oriented x3, CN's II-XII intact bilaterally, moves all extremities and no focal motor deficits Psych Appearance: grossly normal Course Vital Signs Vital signs: Vital Signs Temperature 98.4 F 04/08/23 04:36 Pulse Rate 80 04/08/23 04:36 Respiratory Rate 18 04/08/23 04:36 Blood Pressure 149/81 H 04/08/23 04:36 Pulse Oximetry 98 04/08/23 04:36 Oxygen Delivery Method Room Air 04/08/23 04:36 Temperature 98.4 F 04/08/23 04:36 Pulse Rate 73 04/08/23 06:50 Respiratory Rate 16 04/08/23 06:50 Blood Pressure 130/78 01/31/24 06:50 Pulse Oximetry 97 04/08/23 06:50 Oxygen Delivery Method Room Air 04/08/23 06:50 MDM - Abdominal Pain MDM Narrative Medical decision making narrative: patient presents complaining of pain from pancreatic flare. States she vomited at home and had diarrhea. Exam with mild epigastric tenderness. labs with mild elevated lipase that is improved from her recent admission. xray with sign of moderate constipation. she has chronically elevated alk phos. She was treated with reglan and benadryl for nausea and bentyl for pain. Offered an enema but prefers to use it at home. Discharged home with a fleets enema Lab Data Labs: Lab Results 04/08/23 Range/Units 04:43 WBC 12.2 H (4.0-11.0) 10^3/uL RBC 4.47 (4.20-5.40) 10^6/uL Hgb 14.7 (12.0-16.0) g/dL Hct 43.9 (36.0-48.0) % MCV 98.2 (81.0-99.0) fL MCH 32.9 (26.7-34.0) pg MCHC 33.5 (29.9-35.2) g/dL RDW 12.7 (11.0-15.0) % Plt Count 222 (150-450) 10^3/uL MPV 10.8 (9.5-13.5) fL Neut % (Auto) 64.7 (43.0-75.0) % Lymph % (Auto) 25.2 (20.5-60.0) % [place] % (Auto) 9.5 (1.7-12.0) % Eos % (Auto) 0.1 L (0.9-7.0) % Baso % (Auto) 0.2 (0.2-2.0) % Neut # (Auto) 7.9 H (1.4-6.5) 10^3/uL Lymph # (Auto) 3.1 (1.2-3.8) 10^3/uL [place] # (Auto) 1.2 H (0.3-0.8) 10^3/uL Eos # (Auto) 0.0 (0.0-0.7) 10^3/uL Baso # (Auto) 0.0 (0.0-0.1) 10^3/uL Abs Immat Gran (auto) 0.04 H (0.00-0.03) 10^3/uL Imm/Tot Granulo (auto) 0.3 (0.0-0.5) % Sodium 140 (136-145) mmol/L Potassium 3.1 L (3.5-5.1) mmol/L Chloride 102 (98-107) mmol/L Carbon Dioxide 29.9 (21.0-32.0) mmol/L Anion Gap 11.2 BUN 8.0 (7.0-18.0) mg/dL Creatinine 0.96 (0.55-1.02) mg/dL Est GFR ( Amer) >60 (>=60) Est GFR (Non-Af Amer) >60 (>=60) BUN/Creatinine Ratio 8.3 Glucose 103 (74-106) mg/dL Lactate 1.5 (0.4-2.0) mmol/L Calcium 10.6 H (8.5-10.1) mg/dL Total Bilirubin 0.2 (0.2-1.0) mg/dL AST 14 L (15-37) U/L ALT 26 (14-59) U/L Alkaline Phosphatase 126 H (46-116) U/L Troponin I High Sens 4.2 (4.0-51.3) pg/mL Total Protein 7.4 (6.4-8.2) g/dL Albumin 3.7 (3.4-5.0) g/dL Globulin 3.7 g/dL Albumin/Globulin Ratio 1.0 Amylase 109 (25-115) U/L Lipase 135.0 H (16.0-77.0) U/L Imaging Data Abdominal x-ray: Radiologist's impression: ITS Impressions Abdomen X-Ray 04/08/23 05:17 IMPRESSION: Nonobstructive bowel gas pattern with a large amount of stool within the colon. Electronically authenticated by: JUAN PABLO MITCHELL Date: 04/08/2023 06:19 Discharge Plan Discharge Chief Complaint: Abdominal Pain Clinical Impression: Constipation Patient Disposition: Home, Self-Care Condition: Good Mode of Transportation: Private Vehicle Prescriptions / Home Meds: No Action albuterol sulfate [ProAir HFA] 90 mcg/actuation HFA aerosol inhaler 2 inh inhalation QID PRN (Reason: shortness of breath or wheezing) Qty: 8.5 0RF famotidine [Pepcid] 20 mg tablet 20 mg PO BID PRN (Reason: heartburn) cyclobenzaprine 10 mg Tablet 10 mg PO TID PRN (Reason: Pain) 5 Days Qty: 15 0RF prednisone 20 mg tablet 20 mg PO BID 5 Days Qty: 10 0RF oxycodone-acetaminophen 5-325 mg tablet Instructions: Constipation (ED) Stand Alone Forms: Portal Instructions Referrals: [facility] [Primary Care Provider] - 1 week Discharge Date/Time: 04/08/23 06:55
--- NOTE | 2023-04-08 05:17 | XR_ITS ---
The [address] [address] Patient Name: CHIOMA BOUDREAUX MRN: [id number] date: 1970 Sex: F Assigned Patient Location: ER Current Patient Location: ER Accession/Order Number: [id number] Exam Date: 04/08/2023 05:45 Report Date: 04/08/2023 06:19 At the request of: NICK COY Procedure: XR abdomen min 2V EXAM: XR abdomen min 2V HISTORY: Abdominal pain; technologist notes state upper and left-sided abdominal pain, nausea/vomiting and diarrhea and history of chronic pancreatitis. COMPARISON: 12/24/2022. TECHNIQUE: AP supine AP erect views of the abdomen performed. FINDINGS: Nonobstructive bowel gas pattern with a large amount of stool within the colon. The lung bases are clear. There are no abnormal mass shadows. There are numerous phleboliths again seen within the pelvis. There is no free air. The patient has had a prior cholecystectomy. There is no acute osseous abnormality. There are stable discogenic degenerative changes at L4-5 on the right. XR/XR abdomen min 2V IMPRESSION: Nonobstructive bowel gas pattern with a large amount of stool within the colon. Electronically authenticated by: JUAN PABLO MITCHELL Date: 04/08/2023 06:19
[2023-04-08 05:24] LABS: Basophils Percent Auto 0.2 % (0.2-2.0); Eosinophils Percent Auto 0.1 % (0.9-7.0); Hematocrit 43.9 % (36.0-48.0); Hemoglobin 14.7 g/dL (12.0-16.0); Immature Granulocytes Abs Auto 0.04 10^3/uL (0.00-0.03); Immature Granulocytes Pct Auto 0.3 % (0.0-0.5); Lymphocytes Absolute Auto 3.1 10^3/uL (1.2-3.8); Lymphocytes Percent Auto 25.2 % (20.5-60.0); Mean Corpuscular HGB Conc 33.5 g/dL (29.9-35.2); Mean Corpuscular Hemoglobin 32.9 pg (26.7-34.0); Mean Corpuscular Volume 98.2 fL (81.0-99.0); Mean Platelet Volume 10.8 fL (9.5-13.5); Monocytes Absolute Auto 1.2 10^3/uL (0.3-0.8); Monocytes Percent Auto 9.5 % (1.7-12.0); Neutrophils Absolute Auto 7.9 10^3/uL (1.4-6.5); Neutrophils Percent Auto 64.7 % (43.0-75.0); Platelet Count 222 10^3/uL (150-450); Red Blood Count 4.47 10^6/uL (4.20-5.40); Red Cell Distribution Width 12.7 % (11.0-15.0); White Blood Count 12.2 10^3/uL (4.0-11.0)
[2023-04-08] MEDS: 0.9 % SODIUM CHLORIDE 1,000 ML 999 ML IV (05:36)
[2023-04-08 05:43] LABS: Lactate/Lactic Acid 1.5 mmol/L (0.4-2.0)
[2023-04-08] MEDS: METOCLOPRAMIDE HCL 10 MG/2 ML VIAL IVP (05:43)
[2023-04-08] MEDS: DIPHENHYDRAMINE HCL 50 MG/ML (1ML) VIAL IV (05:43)
[2023-04-08] MEDS: DICYCLOMINE HCL 20 MG/2 ML VIAL IM (05:45)
[2023-04-08 05:51] LABS: Alanine Aminotransferase 26 U/L (14-59); Albumin Level 3.7 g/dL (3.4-5.0); Alkaline Phosphatase 126 U/L (46-116); Amylase 109 U/L (25-115); Anion Gap 11.2; Aspartate Amino Transferase 14 U/L (15-37); BUN Creatinine Ratio 8.3; Bilirubin Total 0.2 mg/dL (0.2-1.0); Calcium 10.6 mg/dL (8.5-10.1); Carbon Dioxide 29.9 mmol/L (21.0-32.0); Chloride 102 mmol/L (98-107); Estimated GFR (African America >60 (>=60); Estimated GFR (Non-African Ame >60 (>=60); Globulin 3.7 g/dL; Glucose 103 mg/dL (74-106); Potassium 3.1 mmol/L (3.5-5.1); Sodium 140 mmol/L (136-145); Total Protein 7.4 g/dL (6.4-8.2); Troponin I High Sensitivity 4.2 pg/mL (4.0-51.3)
[2023-04-08 06:50] VITALS: BP 130/78; PULSE 73; RESP 16; O2SAT 97
== END 2023-04-08 06:55 | disposition home or self-care (01) ==
PROVIDERS: Emergency Provider Internal Medicine
DX: K59.00 Constipation, unspecified (principal); Z79.899 Other long term (current) drug therapy; Z90.710 Acquired absence of both cervix and uterus; Z90.49 Acquired absence of other specified parts of digestive tract; Z98.890 Other specified postprocedural states; F17.210 Nicotine dependence, cigarettes, uncomplicated; K86.1 Other chronic pancreatitis
CPT/HCPCS: 36415; 74019; 80053; 82150; 83605; 83690; 84484; 85025; 96372; 96374; 96375; 99284; J0500; J1200; J2765

== ENCOUNTER 2023-08-12 05:47 | Emergency (ER) | payer OTHER, SELFPAY ==
[2023-08-12] VITALS (11 sets, daily range): BP systolic 105–120; BP diastolic 82–86; PULSE 95–111; TEMP 36.6; O2SAT 93–98; BMI 23.8
--- NOTE | 2023-08-12 06:02 | ECG_ITS ---
The 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
--- NOTE | 2023-08-12 06:02 | XR_ITS ---
The [address] [address] Patient Name: CHIOMA BOUDREAUX MRN: [id number] date: 1970 Sex: F Assigned Patient Location: ED.MAIN Current Patient Location: ED.MAIN Accession/Order Number: [id number] Exam Date: 08/12/2023 06:23 Report Date: 08/12/2023 06:35 At the request of: YANNI FRASER Procedure: XR chest 1V EXAM: XR chest 1V HISTORY: . SOB . COMPARISON: 11/19/2022 TECHNIQUE: Single view of the chest. FINDINGS: Heart and vascularity are unremarkable. Lungs are free of focal infiltrates. Grossly no bony abnormality is appreciated. Impression: No acute heart or lung disease identified. Electronically authenticated by: ION JENSEN Date: 08/12/2023 06:35
--- NOTE | 2023-08-12 06:03 | ED_ITS ---
HPI - SOB/Dyspnea General Chief Complaint: Shortness of Breath/Dyspnea Stated Complaint: SOB COUGH Time Seen by Provider: 08/12/23 05:49 Source: patient Mode of arrival: ambulance Limitations: no limitations History of Present Illness HPI Narrative: 53-year-old female presented for difficulty breathing. She woke up during the night with trouble breathing and paramedics gave her aerosol treatment and transported her here. She is feeling improved. She has recently been babysitting her daughter's cat. No fever or productive cough. Related Data Home Medications ?Medication ?Instructions ?Recorded ?Confirmed famotidine 20 mg tablet (Pepcid) 20 mg PO BID PRN heartburn 04/03/23 08/12/23 oxycodone-acetaminophen 5 mg-325 tab 04/08/23 mg tablet Previous Rx's ?Medication ?Instructions ?Recorded albuterol sulfate 90 mcg/actuation 2 inh inhalation QID PRN shortness 11/20/22 aerosol inhaler (ProAir HFA) of breath or wheezing #8.5 grams cyclobenzaprine 10 mg tablet 10 mg PO TID PRN Pain 5 days #15 04/05/23 tabs prednisone 20 mg tablet 20 mg PO BID 5 days #10 tabs 04/05/23 Allergies Allergy/AdvReac Type Severity Reaction Status Date / Time haloperidol [From Haldol] Allergy Intermediate Hives Verified 08/12/23 05:56 ibuprofen [From Motrin] Allergy Intermediate Hives Verified 08/12/23 05:56 tramadol Allergy Intermediate Hives Verified 08/12/23 05:56 Penicillins Allergy Unknown Verified 08/12/23 05:56 ketorolac [From Toradol] AdvReac Severe Hives Verified 08/12/23 05:56 fentanyl AdvReac Intermediate Verified 08/12/23 05:56 Review of Systems ROS Narrative A ten point review of systems is negative except as noted above. [facility] Medical History (Updated 08/12/23 @ 06:44 by Barry Stinson MD) COPD (chronic obstructive pulmonary disease) ?J44.9 - Chronic obstructive pulmonary disease, unspecified (ICD-10) Chronic pancreatitis ?K86.1 - Other chronic pancreatitis (ICD-10) Smoker ?F17.200 - Nicotine dependence, unspecified, uncomplicated (ICD-10) History of gastrostomy tube placement Surgical History (Updated 04/03/23 @ 12:10 by Marni Farley) Hx of esophagogastroduodenoscopy ?Z98.890 - Other specified postprocedural states (ICD-10) H/O colonoscopy ?Z98.890 - Other specified postprocedural states (ICD-10) Hx of cholecystectomy ?Z90.49 - Acquired absence of other specified parts of digestive tract (ICD- 10) H/O: hysterectomy ?Z90.710 - Acquired absence of both cervix and uterus (ICD-10) Social History (Updated 04/03/23 @ 12:08 by Marni Farley) Smoking status: Current every day smoker Non-prescribed substance use: denies use Highest level of school completed/degree received: high school graduate Exam Narrative Exam Narrative: Nurses note and vital signs reviewed and patient is not hypoxic. General: The patient appears well and in no apparent distress. Patient is resting comfortably on cart. Skin: Warm, dry, no pallor noted. There is no rash noted. Head: Normocephalic, atraumatic Eye: Normal conjunctiva, no drainage Ears, Nose, Mouth, and Throat: oral mucosa is moist. Nares patent. Cardiovascular: Regular Rate and Rhythm Respiratory: Bilateral rhonchi present with good air movement Back: non-tender GI: Normal bowel sounds, no tenderness to palpation, no masses appreciated. No rebound, guarding, or rigidity noted. Musculoskeletal: The patient has no evidence of calf tenderness, no pitting edema, symmetrical pulses noted bilaterally Neurological: A&O, normal speech Psychiatric: Cooperative Constitutional Vital Signs, click to edit/add: Last Vital Signs Temp 98 F 08/12/23 05:51 Pulse 111 H 08/12/23 05:51 Resp 22 H 08/12/23 05:51 BP 105/82 08/12/23 05:51 Pulse Ox 96 08/12/23 05:51 O2 Del Method Room Air 08/12/23 05:51 Course Vital Signs Vital signs: Vital Signs Temperature 98 F 08/12/23 05:51 Pulse Rate 111 H 08/12/23 05:51 Respiratory Rate 22 H 08/12/23 05:51 Blood Pressure 105/82 08/12/23 05:51 Pulse Oximetry 96 08/12/23 05:51 Oxygen Delivery Method Room Air 08/12/23 05:51 Temperature 98 F 08/12/23 05:51 Pulse Rate 111 H 08/12/23 05:51 Respiratory Rate 22 H 08/12/23 05:51 Blood Pressure 105/82 08/12/23 05:51 Pulse Oximetry 96 08/12/23 05:51 Oxygen Delivery Method Room Air 08/12/23 05:51 MDM - SOB/Dyspnea MDM Narrative Medical decision making narrative: She was given IV Solu-Medrol and aerosol treatment. Tests are ordered and the patient is signed out to Dr. Beltran at change of shift. Differential Diagnosis Differential diagnosis: Likely acute exacerbation of chronic obstructive airways disease and community acquired pneumonia Lab Data Attestation: I reviewed the patient's lab results. Labs: Lab Results 08/12/23 Range/Units 06:20 WBC 7.0 (4.0-11.0) 10^3/uL RBC 4.51 (4.20-5.40) 10^6/uL Hgb 14.7 (12.0-16.0) g/dL Hct 43.9 (36.0-48.0) % MCV 97.3 (81.0-99.0) fL MCH 32.6 (26.7-34.0) pg MCHC 33.5 (29.9-35.2) g/dL RDW 12.5 (11.0-15.0) % Plt Count 211 (150-450) 10^3/uL MPV 9.7 (9.5-13.5) fL Neut % (Auto) 46.0 (43.0-75.0) % Lymph % (Auto) 40.9 (20.5-60.0) % [place] % (Auto) 9.3 (1.7-12.0) % Eos % (Auto) 2.6 (0.9-7.0) % Baso % (Auto) 1.1 (0.2-2.0) % Neut # (Auto) 3.2 (1.4-6.5) 10^3/uL Lymph # (Auto) 2.9 (1.2-3.8) 10^3/uL [place] # (Auto) 0.7 (0.3-0.8) 10^3/uL Eos # (Auto) 0.2 (0.0-0.7) 10^3/uL Baso # (Auto) 0.1 (0.0-0.1) 10^3/uL Abs Immat Gran (auto) 0.01 (0.00-0.03) 10^3/uL Imm/Tot Granulo (auto) 0.1 (0.0-0.5) % Discharge Plan Discharge Patient Disposition: Still a Patient
--- OUTSIDE RECORDS SUMMARY | 2023-08-12 06:07 | XMS_ITS | CCD ---
Author Organization [facility] Care Team Providers Care Well Services Operator Name Role Phone Alexander Nichols Unavailable LIALEXANDER Unavailable Unavailable COPC SACHIN, GENERIC Unavailable Unavailable COPC SACHIN, GENERIC Unavailable Unavailable ALIRIO NEGRO Unavailable Unavailable LIMARILEEWA Unavailable Unavailable JOANA MENDES Unavailable Unavailable LI KEWA Unavailable Unavailable ERROL WALTON Unavailable Unavaila ble LIMARILEEWA Unavailable Unavailable KEERTHI NGUYEN Unavailable Unavailable COPC SACHIN, GENERIC Unavailable Unavailable KEERHTI NGUYEN Unavailable Unavailable LIMARILEEWA Unavailable Unavailable [facility], [facility] Unavailable Unav ailable EUGENIA SHELTON Unavailable Unavailable [facility], [facility] Unavailable Unav ailable Unavailable Primary Care Provider UnavailRAJEEV Pino Admitting Unavailable RAJEEV TINOCO Attending Unavailable Alexander Nichols Primary Care Provider [phone] Unavailable Primary Care Provider UnavailMarya Guajardo Unavailable NON STAFF Primary Care Provider UnavailDO Keaton hTompson Emergency Provider SALMA Amor Emergency Provider SALMA Lopez Emergency Provider Woodrow ALEXANDER, Pineda Rock Unavailable [phone] [facility], Other Primary Care Provi mathew NON STAFF Primary Care Provider UnavailMD Agustin Varela Emergency Provider DR TRI HANSON Consulting Unavailable ARIC CHAUDHARY Attending Unavailable ARIC CHAUDHARY Admitting Unavailable [facility] Primary Care Unavailable ARIC CHAUDHARY Consulting Unavailable AGUSTIN MADRIGAL Consulting Unavailable YANNI FRASER Attending Unavailable YANNI FRASER Admitting Unavailable [facility] Primary Care Unavailable HEBERT MCPHRESON Consulting Unavailable AMINATA, DR RAJEEV Chan Consulting Unavailable AMINATA, DR RAJEEV Chan Attending Unavailable AMINATA, DR RAJEEV Chan Admitting Unavailable [facility] Primary Care Unavailable GRECHCATHLEEN ., ANKIT BOYKIN Consulting Unavailabl e IGGY ., MONIK Attending Unavailable IGGY ., MONIK Admitting Unavailable GRECHNY ., ANKIT BOYKIN [facility] Unavailable ANNELIESE, NICK Consulting Unavailable JANUSZ ., ARIC Consulting Unavailable AGUSTIN HIGHTOWER Consulting Unavailable ROLAN EUCEDA Consulting Unavailable AMINATA, DR RAJEEV Chan Consulting Unavailable BRIANNA, DR SHARON Silveira Attending Unavailabl e REINECK, DR SHARON Silveira Admitting [facility] Unavailable BRIANNA, DR SHARON Silveira Consulting [facility] HANS ., NAT Consulting Unavailable HANS ., NAT Consulting Unavailable PAY ., DR MACEDO Attending Unavailable PAY ., DR MACEDO Admitting Unavailable [facility] Primary Care Unavailable ANNELIESE, NICK Consulting Unavailable ANNELIESE, NICK Attending Unavailable ANNELIESE, NICK Admitting Unavailable [facility] Primary Care Unavailable MILADIS BARRERA Consulting Unavailable JANUSZ .ARIC Attending Unavailable JANUSZ ., ARIC Admitting Unavailable JANUSZ ., ARIC Consulting Unavailable [facility] Primary Care Unavailable ION KRUSE Consulting Unavailable YANNI FRASER Attending Unavailable YANNI FRASER Admitting Unavailable JANNY ., ANKIT BOYKIN Consulting [facility] Unavailable LYNNE PERDOMO Consulting Unavailable JANUSZ ., ARIC Attending Unavailable JANUSZ ., ARIC Admitting Unavailable [facility] Primary Care Unavailable JANUSZ ., ARIC Consulting Unavailable DIAB ., ELENITA Consulting Unavailable DIAB ., ELENITA Attending Unavailable DIAB ., ELENITA Admitting Unavailable [facility] Primary Care Unavailable PAY ., DR MACEDO Consulting Unavailable PAY ., DR MACEDO Attending Unavailable PAY ., DR MACEDO Admitting Unavailable [facility] Primary Care Unavailable ANNELIESE, NICK Consulting Unavailable ANNELIESE, NICK Attending Unavailable ANNELIESE, NICK Admitting Unavailable [facility] Primary Care Unavailable AGUSTIN HIGHTOWER Consulting Unavailable AMINATA, DR RAJEEV hCan Consulting Unavailable HAY ., DR GRANT Attending Unavailable HAY ., DR GRANT Admitting Unavailable [facility] Primary Care Unavailable TANVIR Herron, DR GRANT Consulting Unavailable NON STAFF Primary Care Provider Unavailabl e Anabele, ALEA Serrano Emergency Provider NON STAFF Primary Care Provider Unavailabl e Saffle, POTATO CHIP FRYER Nicole N Emergency Provider DO Rivera Lopez Emergency Provider [phone] SERVICES, [facility] Care Unava ilable DEYANIRA BIRMINGHAMA L Attending Unavailable BIRMINGHAM, VIC L Attending Unavailable BIRMINGHAM, VIC L Referring Unavailable SERVICES, [facility] Unava ilable SERVICES, [facility] Care Unava ilable TABITHA NEWELL Attending Unavailable OSIRIS, TABITHA Chan Attending Unavailable TABITHA NEWELL Referring Unavailable SERVICES, [facility] Unava ilable TABITHA NEWELL Attending Unavailable TABITHA NEWELL Referring Unavailable SERVICES, [facility] Care Unava ilable Services, [facility] Primary Care Provider MD Xiang Kellogg Emergency Provider [phone] Nicole Posadas Attending Unavailable NON STAFF Primary Care Unavailable Nicole Posadas Admitting Unavailable NON STAFF Primary Care Unavailable Rivera Lopez Admitting Unavailable Rivera Lopez Attending Unavailable NON STAFF Primary Care Unavailable Xiang Kellogg Admitting Unavailable Xiang Kellogg Attending Unavailable NON STAFF Primary Care Unavailable AnabeleNicole Admitting Unavailable Katharina Nicole Zach Attending Unavailable STEVE, SOMASHEKAR G Attending Unavailabl e SELF, SELF Referring Unavailable [facility], OTHER Primary Care Un available STEVE SOMASHEKAR G Referring Unavailabl e STEVE, SOMASHEKAR G Attending Unavailabl e [facility], OTHER Primary Care Un available STEVE SOMASHEKAR G Attending Unavailabl e [facility], OTHER Referring Un available [facility], OTHER Primary Care Un available Woodrow ALEXANDER, Pineda Rock Unavailable [facility], Other Primary Care Provi mathew Allergies Allergy Classification Reported Allergen(s) Allergy Type Date of Onset Reaction(s) Facility (20 sources) haloperidol; Translations: [HALOPERIDOL] Propensity to adverse reactions to drug 06-02-19 16 [facility] (20 sources) ibuprofen; Translations: [IBUPROFEN] Propensity to adverse reactions to drug 10-31-19 13 Hives, Swelling, Anaphylaxis [facility] (6 sources) metoclopramide; Translations: [METOCLOPRAMIDE HCL] Propensity to adverse reactions to drug 07-01-19 17 [facility] (6 sources) penicillin g; Translations: [PENICILLIN G] Propensity to adverse reactions to drug 07-25-19 15 Anaphylaxis [facility] (20 sources) traMADol; Translations: [TRAMADOL] Propensity to adverse reactions to drug 07-25-19 15 [facility] (20 sources) morphine; Translations: [MORPHINE] Drug Allergy 07-16-19 18 [facility] (4 sources) Enoxaparin Drug Allergy 08-23-19 20 Itching, Rash [place] (2 sources) Haloperidol Drug Allergy 10-20-19 18 Swelling [place] (16 sources) Penicillins; Translations: [PENICILLINS] Propensity to adverse reactions to drug 10-31-19 13 Anaphylaxis, Swelling [place] (2 sources) Haloperidol; Translations: [Haldol] Drug Allergy 08-10-19 19 Unknown [facility] (14 sources) fentaNYL; Translations: [Fentanyl] Drug Allergy 09-13-19 21 [facility] (13 sources) Ketorolac; Translations: [KETOROLAC] Drug Allergy 06-13-19 21 [facility] (6 sources) Ketorolac Drug Allergy 12-17-19 22 Hives, Itching [facility] (9 sources) Metoclopramide Drug Allergy 07-01-19 17 Anxiety [facility] (1 source) Ibuprofen Drug Allergy 01-09-20 13 [facility] (1 source) Ketorolac Drug Allergy [facility] (1 source) Morphine Drug Allergy 08-10-19 19 [facility] (1 source) Penicillins Drug allergy (disorder) 01-09-20 13 [facility] (1 source) traMADol Drug Allergy 01-09-20 13 [facility] (4 sources) Penicillins Propensity to adverse reactions to drug 10-10-19 18 Anaphylaxis [facility] (1 source) Haloperidol Drug Allergy 04-18-19 [facility] (1 source) Ibuprofen Drug Allergy 04-18-19 [facility] (1 source) Morphine Drug Allergy 04-18-19 [facility] (1 source) Penicillins Drug allergy (disorder) 04-18-19 [facility] (1 source) traMADol Drug Allergy 04-18-19 [facility] (1 source) Ketorolac trometamol Propensity to adverse reactions to drug 12-17-19 22 Hives, Itching [facility] (1 source) Penicillins Propensity to adverse reactions to drug 10-31-19 13 Swelling [facility] Work Phone: Medications Current Medications Medication Drug Class(es) Dates Sig (Normalized) Sig (Original) Acetaminophen (1 source) Start: 08-23-2019 acetaminophen (TYLENOL) tablet 650 mg amitriptyline hydrochloride 25 mg oral tablet (20 sources) Tricyclic Antidepressant Start: 08-26-2021 End: 10-04-2021 take 1 tablet by mouth once daily amitriptyline (ELAVIL) 25 mg tablet Take 1 tablet (25 mg total) by mouth nightly. 15 tablet 15 08/26/2021 Active Start: 12-01-2019 amitriptyline (ELAVIL) 10 mg tablet Take 25 mg by mouth. 0 12/01/2019 Active Start: 12-01-2019 End: 05-11-2023 take 2.5 tablets by mouth at bedtime amitriptyline 10 MG tablet Take 2.5 tablets by mouth at bedtime. 30 tablet 11 12/01/2019 05/11/2023 Discontinued amylase [id number] unt / lipase 62934 unt / protease 07652 unt delayed release oral capsule (17 sources) Start: 05-11-2023 take 3 capsules by mouth twice daily at mealtime Pancreatic enzymes (Creon) [address] Particles capsule Take 3 capsules by mouth 2 times daily with meals. 180 capsule 11 05/11/2023 Active Start: 12-16-2021 End: 05-11-2023 take 2 capsules by mouth three times daily at mealtime Pancreatic enzymes (Creon) [address] Particles capsule Take 2 capsules by mouth 3 times daily with meals. 180 capsule 06/16/2022 05/11/2023 Discontinued (Reorder) lipase-protease- amylase (CREON) 12,000-38,000 -60,000 unit capsule,delayed release(DR/EC) capsule Take 1 capsule (12,000 units of lipase total) by mouth in the morning and 1 capsule (12,000 units of lipase total) at noon and 1 capsule (12,000 units of lipase total) in the evening. Take with meals. 0 Active dicyclomine hydrochloride 20 mg oral tablet (20 sources) Anticholinergic Start: 03-27-2023 take 1 tablet by mouth in the morning, then take 1 tablet by mouth at bedtime dicyclomine (BENTYL) 20 mg tablet Take 1 tablet (20 mg total) by mouth in the morning and 1 tablet (20 mg total) before bedtime. 20 tablet 0 03/27/2023 Active Start: 11-09-2022 End: 04-11-2023 take 10 mg by mouth three times daily Dicyclomine Discontinued 10 MG PO Three times daily November 08, 2022 11:00pm April 11, 2023 9:24pm Start: 09-25-2021 End: 10-04-2021 take 20 mg by mouth four times daily Dicyclomine Discontinued 20 MG PO Four times daily September 24, 2021 11:00pm October 04, 2021 2:17pm Start: 08-26-2021 take 1 tablet by sachin th every six hours dicyclomine (BENTYL) 20 mg tablet Take 1 tablet (20 mg total) by mouth every 6 (six) hours. 20 tablet 0 08/26/2021 Active Start: 03-04-2018 dicyclomine (B ENTYL) injection 20 mg Start: 08-24-2017 End: 08-24-2017 dicyclomine (BENTYL) injecti on 20 mg Start: 08-24-2017 End: 09-03-2017 take 1 capsule by mouth three times daily as needed dicyclomine (BENTYL) 10 MG capsule Take 1 (one) capsule (10 mg total) by mouth 3 (three) times a day as needed. 30 capsule 0 08/24/2017 Active ergocalciferol 1.25 mg oral capsule (6 sources) Provitamin D2 Compound Start: 05-11-2023 End: 07-06-2023 take 1 capsule by mouth every week Ergocalciferol 1.25 MG (70946 UT) capsule Take 1 capsule by mouth once a week. 8 capsule 05/11/2023 07/06/2023 Active Start: 01-28-2022 End: 03-19-2022 take 1 capsule by mouth every week ergocalciferol 1.25 MG (72613 UT) capsule Take 1 capsule by mouth once a week for 8 doses. 8 capsule 01/28/2022 Active famotidine 20 mg oral tablet (15 sources) Histamine-2 Receptor Antagonist Start: 08-26-2021 End: 10-04-2021 take 1 tablet by mouth in the morning, then take 1 tablet by mouth at bedtime famotidine (PEPCID) 20 mg tablet Take 1 tablet (20 mg total) by mouth in the morning and 1 tablet (20 mg total) before bedtime. 30 tablet 0 08/26/2021 Active Start: 03-04-2018 End: 03-04-2018 famotidine (PEPCID) injectio n 20 mg Start: 05-14-2017 End: 05-15-2017 take 1 tablet by sachin th once daily famotidine (PEPCID) 20 MG tablet Take 20 mg by mouth daily . 0 Active 1 ml HYDROmorphone hydrochloride 1 mg/ml [...] as needed HYDROmorphone (DILAUDID) injection 0.5 mg [place] (No Known Home Meds) (1 source) Start: 10-09-2021 [place] (No Known Home Meds) Active October 09, 2021 12:00am ondansetron 4 mg disintegrating oral tablet (20 sources) Serotonin-3 Receptor Antagonist Start: 04-11-2023 take 1 tablet by mouth every eight hours as needed for nausea ondansetron ODT (ZOFRAN ODT) 4 mg disintegrating tablet Dissolve 1 tablet (4 mg total) on tongue every 8 (eight) hours as needed for nausea for up to 10 doses. 10 tablet 0 04/11/2023 Active Start: 04-11-2023 Ondansetron Hc l Active 4 MG PO every 6 to 8 hours April 11, 2023 12:00am Start: 10-04-2021 End: 10-09-2021 take 4 mg [...] 05-14-2017 ondansetron (ZOFRAN) injecti on 4 mg polyethylene glycol 3350 38855 mg powder for oral solution (1 source) Osmotic Laxative Start: 08-22-2019 17 g, Oral, D AILY PRN, Constipation, Starting 08/22/19 at 1627 First line therapy for constipation Completed/Discontinued Medications Medication Drug Class(es) Dates Sig (Normalized) Sig (Original) acetaminophen 325 mg / HYDROcodone bitartrate 5 mg oral tablet (14 sources) Opioid Agonist Start: 10-08-2020 End: 11-20-2020 take 1 tablet by mouth every four to six hours Hydrocodone-Acetami nophen Discontinued 1 TAB PO EVERY 4-6 HOURS 08 09October 08, 2020 November 20, 2020 5:23pm Start: 04-19-2020 End: 05-31-2020 take 1 tablet by mouth every six hours Hydrocodone-Acetaminophen Discontinued 1 TAB PO Q6H 10 April 19, 2020 May 31, 2020 2:51pm acetaminophen 325 mg / oxyCODONE hydrochloride 5 mg oral tablet (14 sources) Opioid Agonist Start: 10-04-2021 End: 10-09-2021 [...] COCET) 5-325 mg per tablet 1 tablet bisacodyl 10 mg rectal suppository (1 source) [...] End: 05-15-2017 enoxaparin (LOVENOX) syringe 40 mg 2 ml fentaNYL 0.05 mg/ml injection (4 [...] 30 mg mirtazapine 15 mg oral tablet (9 sources) Start: 12-01-2019 End: 12-16-2021 take 15 [...] End: 05-15-2017 naloxone (NARCAN) injection 0.1 mg omeprazole 20 mg delayed release oral capsule (3 sources) Proton Pump Inhibitor Start: 06-16-2022 End: 05-11-2023 take 1 capsule by mouth once daily omeprazole [address] capsule Take 1 capsule by mouth daily. 30 capsule 6 06/16/2022 05/11/2023 Discontinued oxyCODONE hydrochloride 5 mg oral tablet (7 sources) Opioid Agonist Start: 03-22-2022 End: 04-11-2023 take 5 mg by mouth every four to six hours Oxycodone Discontinued 5 MG PO EVERY 4-6 HOURS 12 09March 22, 2022 April 11, 2023 9:24pm Start: 01-28-2022 End: 01-28-2022 oxyCODONE (ROXICODONE) table t 5 mg Start: 05-15-2017 End: 05-15-2017 take 1 tablet by mouth every four hours as needed oxyCODONE (ROXICODONE) immediate release tablet 5 mg 2 ml prochlorperazine 5 mg/ml injection (1 source) Phenothiazine Start: 05-14-2017 End: 05-15-2017 take 5 mg by intramuscular injection every six hours as needed promethazine hydrochloride 25 mg oral tablet (20 sources) Phenothiazine Start: 11-09-2022 End: 04-11-2023 take 25 mg by mouth three times daily Promethazine Discontinued 25 MG PO Three times daily November 08, 2022 11:00pm April 11, 2023 9:24pm Start: 12-19-2021 End: 04-11-2023 take 25 mg by mouth every six hours Promethazine Discontinued 25 MG PO Q6H December 18, 2021 11:00pm April 11, 2023 9:24pm Start: 09-25-2021 End: 10-04-2021 take 25 mg [...] hours as needed for nausea. 05/14/2017 Discontinued 50 ml sodium chloride 9 mg/m l injection (13 sources) Start: 03-26-2020 End: 03-26-2020 0.9 % sodium chloride bolus Start: 08-22-2019 10 mL, Intrave nous, EVERY 12 HOURS SCHEDULED (2 times per day), First dose on Thu08/22/19 at 2100 Start: 08-22-2019 Intravenous, a t 75 mL/hr, CONTINUOUS, Starting 08/22/19 at 1645 Start: 08-22-2019 take 10 mL intraveno us route once as needed 10 mL, Intravenous, PRN, Line Care, After every IV line use, Starting 08/22/19 at 1627 Start: 08-22-2019 End: 08-22-2019 0.9 [...] Chronic abdominal pain; Translations: [Epigastric pain] Onset: 5 11-30-2014 Episodic Administrative/social admission (6 sources) Drug seeking behavior ; Translations: [Malingerer [conscious simulation]] 10-09-2021 Episodic Alcohol-related disorders (8 sources) History of alcohol abuse; Translations: [Alcohol abuse, in remission] Onset: 5 10-23-2014 Chronic Appendicitis and other appendiceal conditions (1 source) Unspecified acute appendicitis; Translations: [UNSPECIFIED ACUTE APPENDICITIS] Onset: 3 Episodic Biliary tract disease (1 source) Obstruction of bile duct; Translations: [OBSTRUCTION OF BILE DUCT] Onset: 3 Chronic Esophageal disorders (1 source) Gastroesophageal reflux disease without esophagitis; Translations: [Gastro-esophageal reflux disease without esophagitis] 05-11-2023 Chronic Mood disorders (12 sources) Bipolar disorder; Translations: [Depressive disorder] Onset: 5 09-07-2014 Chronic Noninfectious gastroenteritis (3 sources) Noninfective gastroenteritis and colitis, unspecified; Translations: [Noninfective gastroenteritis and colitis, unspecified] Onset: 8 Episodic Osteoporosis (5 sources) Osteoporosis; Translations: [Other osteoporosis without current pathological fracture] Onset: 3 Chronic Other aftercare (1 source) 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 house 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; Translations: [[employer] CURRENT DRUG THERAPY] Onset: 3 Episodic Other gastrointestinal disorders (7 sources) History of pancreatitis; Translations: [Personal history of other diseases of the digestive system] 08-11-2021 Episodic Other nervous system disorders (1 source) Chronic pain; Translations: [Other chronic pain] Chronic Other nervous system disorders (2 sources) Other chronic pain; Translations: [OTHER CHRONIC PAIN] Onset: 2 Chronic Other nutritional; endocrine; and metabolic disorders (1 source) Hypercalcemia; Translations: [Hypercalcemia] 04-18-2023 Chronic Other screening for suspected conditions (not mental disorders or infectious disease) (18 sources) Patient encounter status; Translations: [Encounter for screening for malignant neoplasm of colon] Onset: 6 Resolved: 7 Episodic Pancreatic disorders (20 sources) Chronic pancreatitis; Translations: [Other chronic pancreatitis] Onset: 5 Resolved: 6 06-30-2016 Chronic Pancreatic disorders (not diabetes) (6 sources) Acute pancreatitis without necrosis or infection, unspecified; Translations: [Other acute pancreatitis without necrosis or infection] Onset: 8 03-08-2018 Regional enteritis and ulcerative colitis (1 source) Enteritis of small intestine Episodic Residual codes; unclassified (1 source) Acquired absence of other specified parts of digestive tract; Translations: [ACQ ABSENCE OTH PART DIGESTV TRACT] Onset: 3 Episodic Residual codes; unclassified (1 source) Acquired absence of uterus with remaining cervical stump; Translations: [ACQ ABSENCE UTRUS REM CERV STUMP] Onset: 3 Episodic Residual codes; unclassified (1 source) Procedure and treatment not carried out because of patient's decision for other reasons; Translations: [PROC AND TX NOT CARRIED OUT PT OTH RSN] Onset: 3 Episodic Screening and history of mental health and substance abuse codes (2 sources) Tobacco smoking behavior - finding; Translations: [Personal history of nicotine dependence] Episodic Substance-related disorders (2 sources) Nicotine dependence, cigarettes, uncomplicated; Translations: [Smoker] Onset: 3 05-11-2023 Chronic Unclassified (5 sources) Somatization disorder; 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] Onset: 5 10-09-2014 Chronic Past or Other Problems Problem Classification Problem Date Documented Da te Episodic/Chronic Complication of device; implant or graft (7 sources) Breakdown (mechanical) of cranial or spinal infusion catheter, initial encounter; Translations: [Mechanical complication due to other implant and internal device, not elsewhere classified] Onset: 04-23-2016 Resolved: 04-24-2016 04-24-2016 Episodic Complications of surgical procedures or medical care (14 sources) Malfunction of gastrostomy tube; Translations: [Gastrostomy malfunction] Onset: 06-25-2015 Resolved: 06-09-2016 06-09-2016 Episodic Diseases of white blood cells (7 sources) Neutrophilia; Translations: [Disorder of white blood [...] Episodic Other disorders of stomach and duodenum (7 sources) Cyclical vomiting syndrome; Translations: [Cyclical vomiting syndrome unrelated to migraine] Onset: 06-21-2015 06-21-2015 Episodic Other gastrointestinal disorders (15 sources) Diarrhea; Translations: [Diarrhea, unspecified] Onset: 06-30-2015 Resolved: 04-24-2016 07-06-2019 Episodic Other gastrointestinal disorders (3 sources) Diarrhea, unspecified; Translations: [Diarrhea, unspecified] Onset: 08-24-2017 Episodic Other gastrointestinal disorders (1 source) Constipation, unspecified; Translations: [CONSTIPATION UNSPECIFIED] Onset: 08-28-2021 Episodic Pancreatic disorders (20 sources) Alcohol-induced pancreatitis; Translations: [Acute pancreatitis] Onset: 06-05-2015 Resolved: 06-09-2016 06-30-2016 Episodic Residual codes; unclassified (7 sources) Tobacco use and exposure - finding; Translations: [Tobacco use] Onset: 10-23-2014 07-06-2015 Episodic Residual codes; unclassified (4 sources) Procedure and treatment not carried out due to patient leaving prior to being seen by health care provider; Translations: [PROC AND TX NOT CARRIED OUT PT LEAVE] Onset: 09-30-2021 Episodic Viral infection (1 source) COVID-19 Onset: 03-19-2021 Resolved: 03-19-2021 Results Test Name Value Interpretation Reference Range Facility Alanine aminotransferase [En zymatic activity/volume] in Serum or PlasmaOrdered By: Xiang Kellogg on 04-18-2023 ALT [Catalytic activity/Vol] 9 U/L 7-52 [facility] Albumin [Mass/volume] in Ser um or Plasma by Bromocresol green (BCG) dye binding methoOrdered By: Xiang Kellogg on 04-18-2023 Albumin BCG dye [Mass/Vol] 4.5 g/dL 3.5-5.7 [facility] Alkaline phosphatase [Enzyma tic activity/volume] in Serum or PlasmaOrdered By: Xiang Kellogg on 04-18-2023 ALP [Catalytic activity/Vol] 107 U/L 34-104 [facility] Amylaseon 04-18-2023 Amylase [Catalytic activity/Vol] 72 U/L Normal 29-103 [facility] Comment on above: Performed By: #### H S TROP, CMP, CBC, LIPASE #### [address] Amylase [Enzymatic activity/ volume] in Serum or PlasmaOrdered By: Xiang Kellogg on 04-18-2023 Amylase [Catalytic activity/Vol] 72 U/L 29103 [facility] Aspartate aminotransferase [ Enzymatic activity/volume] in Serum or PlasmaOrdered By: Xiang Kellogg on 04-18-2023 AST [Catalytic activity/Vol] 14 U/L 13-39 [facility] Basic Metabolic Panelon 04-09 Anion gap [Moles/Vol] 10.0 mmol/L Normal 6.0-15.0 [facility] Comment on above: Performed By: #### H S TROP, CMP, CBC, LIPASE #### [facility] [address] Calcium [Mass/Vol] 11.1 mg/dL High 8.6-10.3 [facility] Comment on above: Performed By: #### H S TROP, CMP, CBC, LIPASE #### [address] Chloride [Moles/Vol] 103 mmol/L Normal 98-107 [facility] Comment on above: Performed By: #### H S TROP, CMP, CBC, LIPASE #### [address] CO2 [Moles/Vol] 30.2 mmol/L Normal 21.0-31.0 [facility] Comment on above: Performed By: #### H S TROP, CMP, CBC, LIPASE #### [address] Creatinine [Mass/Vol] 0.80 mg/dL Normal 0.60-1.20 [facility] Comment on above: Performed By: #### H S TROP, CMP, CBC, LIPASE #### [address] Creatinine Clr Calc Pharmacy 64.32 [facility] Comment on above: Performed By: #### H S TROP, CMP, CBC, LIPASE #### [place] [address] [place] GFR/1.73 sq M.predicted MDRD (S/P/Bld) [Vol rate/Area] mL/min/{1.73_m2} [facility] Comment on above: Performed By: #### H S TROP, CMP, CBC, LIPASE #### [facility] [address] Glucose [Mass/Vol] 108 mg/dL High 70-100 [facility] Comment on above: Result Comment: [facility] Glucose Reference Range is dependent on time and content of last meal. Glucose of more than 200 mg/dL in a nonstressed, ambulatory subject supports the diagnosis of Diabetes Mellitus. ADA recommended reference range Performed By: #### H S TROP, CMP, CBC, LIPASE #### [facility] [address] Potassium [Moles/Vol] 3.2 mmol/L Low 3.5-5.1 [facility] Comment on above: Performed By: #### H S TROP, CMP, CBC, LIPASE #### [address] Sodium [Moles/Vol] 140 mmol/L Normal 136-145 [facility] Comment on above: Performed By: #### H S TROP, CMP, CBC, LIPASE #### [address] Urea nitrogen [Mass/Vol] 7 mg/dL Normal 7-25 [facility] Comment on above: Performed By: #### H S TROP, CMP, CBC, LIPASE #### [address] Basophils Auto (Bld) [#/Vol] Ordered By: Xiang Kellogg on 04-18-2023 Basophils (Bld) [#/Vol] 0.1 10*3/uL 0.0-0.2 [facility] Basophils/100 WBC Auto (Bld) Ordered By: Xiang Kellogg on 04-18-2023 Basophils/100 WBC (Bld) 0.8 % . [facility] Bilirubin.direct [Mass/volum e] in Serum or PlasmaOrdered By: Xiang Kellogg on 04-18-2023 Bilirubin.direct [Mass/Vol] 0.00 mg/dL 0.03-0.18 [facility] Comment on above: If the DBIL is less than 0.1, IBIL is not able to becalculated. Bilirubin.total [Mass/volume ] in Serum or PlasmaOrdered By: Xiang Kellogg on 04-18-2023 Bilirubin [Mass/Vol] 0.3 mg/dL 0.3-1.[address] [facility] [address] abdomen pelvis wo conon 0 04-18-2023 CT abdomen pelvis wo con [facility] Main [place] [address] [place], [place] [id number] CT Scan Report Signed Patient: Chioma Arciniega MR#: [id number] : 1970 Acct:[id number] Age/Sex: 52 / F ADM Date: 04/18/23 Loc: ER Room: Type: [facility] ER Attending Dr: Copies to: Xiang Kellogg MD Ordering Provider: Xiang Kellogg MD Date of Service: 04/18/23 CT/CT abdomen pelvis wo con: Abdominal Pain CT abdomen pelvis wo con 04/18/2023 3:38 PM SIGNS AND SYMPTOMS: Abdominal pain, chronic pancreatitis TECHNIQUE: Multidetector ct axial images of the abdomen and pelvis were obtained without IV contrast. Multiplanar reformats were performed and reviewed to further define anatomy and possible pathology. CT was performed with one or more of the following dose reduction techniques: Automated exposure control, adjustment of the mA and/or kV according to patient size, or use of iterative reconstruction technique. COMPARISON: 04/11/2023 FINDINGS: Lower Chest: There is a hiatal hernia with gastric fundus in the lower mediastinum. ABDOMEN: Liver: Within normal limits. Bile Ducts: Normal caliber. Gallbladder: Previously removed Pancreas: Within normal limits. Spleen: Within normal limits. Adrenals: There is an unchanged 12 mm left adrenal nodule. Kidneys: Within normal limits. Pelvis: Reproductive Organs: [...] Degenerative changes are noted in the thoracolumbar spine, greatest at T12-L1 and L1-L2. CT/CT abdomen pelvis wo con IMPRESSION: No bowel obstruction or obstructive uropathy. No free fluid or free air. There is a hiatal hernia with gastric fundus in the lower mediastinum. There is evidence of prior cholecystectomy. There is an unchanged 12 mm left adrenal nodule. Impression dictated by: Rajeev Ulloa M.D.04/18/2023 5:07 PM Dictation Location: [place] [address] Transcribed By: RICA 04/18/231706 Dictated By: Rajeev Ulloa II, MD 04/18/231700 Signed By: 04/18/231706 Normal [facility] Calcium [Mass/volume] in Ser um or PlasmaOrdered By: Xiang Kellogg on 04-18-2023 Calcium [Mass/Vol] 11.1 mg/dL 8.6-10.3 [facility] Carbon dioxide, total [Moles /volume] in Serum or PlasmaOrdered By: Xiang Kellogg on 04-18-2023 CO2 [Moles/Vol] 30.2 mmol/L 21.0-31.0 [facility] Chloride [Moles/volume] in S erika or PlasmaOrdered By: Xiang Kellogg on 04-18-2023 Chloride [Moles/Vol] 103 mmol/L 98-107 [facility] Complete Blood Count Auto Di ffon 04-18-2023 Basophils (Bld) [#/Vol] 0.1 10*3/uL Normal 0.0-0.2 [facility] Comment on above: Result Comment: PERF ORMED BY: [place] [address] PATHOLOGIST [employer] TECH[employer]UC[employer] TE[employer]ER PAULA RODRIGUES M.D. Performed By: #### H S TROP, CMP, CBC, LIPASE #### [facility] [address] [place] [address] [place] Basophils/100 WBC (Bld) 0.8 % Normal . [facility] Comment on above: Performed By: #### H S TROP, CMP, CBC, LIPASE #### [facility] [address] [place] [address] [place] Eosinophils (Bld) [#/Vol] 0.0 10*3/uL Normal 0.0-0.45 [facility] Comment on above: Performed By: #### H S TROP, CMP, CBC, LIPASE #### [address] Eosinophils/100 WBC (Bld) 0.2 % Normal . [facility] Comment on above: Performed By: #### H S TROP, CMP, CBC, LIPASE #### [address] Erythrocyte distribution width (RBC) [Ratio] 13.4 % Normal 11.9-15.3 [facility] Comment on above: Performed By: #### H S TROP, CMP, CBC, LIPASE #### [address] Hematocrit (Bld) [Volume fraction] 41.6 % Normal 34.0-46.4 [facility] Comment on above: Performed By: #### H S TROP, CMP, CBC, LIPASE #### [address] Hemoglobin (Bld) [Mass/Vol] 14.3 g/dL Normal 11.8-15.4 [facility] Comment on above: Performed By: #### H S TROP, CMP, CBC, LIPASE #### [address] Lymphocytes (Bld) [#/Vol] 1.6 10*3/uL Normal 1.00-4.8 [facility] Comment on above: Performed By: #### H S TROP, CMP, CBC, LIPASE #### [address] Lymphocytes/100 WBC (Bld) 12.8 % Normal . [facility] Comment on above: Performed By: #### H S TROP, CMP, CBC, LIPASE #### [address] MCH (RBC) [Entitic mass] 32.7 pg Normal 24.7-34.3 [facility] Comment on above: Performed By: #### H S TROP, CMP, CBC, LIPASE #### [address] MCV (RBC) [Entitic vol] 95.5 fL Normal 80-100 [facility] Comment on above: Performed By: #### H S TROP, CMP, CBC, LIPASE #### [address] Mean Corpuscular HGB Conc 34.3 g/dL Normal 32.0-35.0 [facility] Comment on above: Performed By: #### H S TROP, CMP, CBC, LIPASE #### [address] Monocytes (Bld) [#/Vol] 0.6 10*3/uL Normal 0.0-0.8 [facility] Comment on above: Performed By: #### H S TROP, CMP, CBC, LIPASE #### [address] Monocytes/100 WBC (Bld) 16.25 % Normal 0.00-20.00 [facility] Comment on above: Performed By: #### H S TROP, CMP, CBC, LIPASE #### [address] Monocytes/100 WBC (Bld) 5.4 % Normal . [facility] Comment on above: Performed By: #### H S TROP, CMP, CBC, LIPASE #### [address] Neutrophils (Bld) [#/Vol] 9.8 10*3/uL High 1.8-7.7 [facility] Comment on above: Performed By: #### H S TROP, CMP, CBC, LIPASE #### [address] Neutrophils/100 WBC (Bld) 80.8 % Normal . [facility] Comment on above: Performed By: #### H S TROP, CMP, CBC, LIPASE #### [address] NRBC% 0.0 /100{WBC} Normal 0-0.5 [facility] Comment on above: Performed By: #### H S TROP, CMP, CBC, LIPASE #### [address] [address] [place] Platelet mean volume (Bld) [Entitic vol] 8.1 fL Normal 6.3-10.7 [facility] Comment on above: Performed By: #### H S TROP, CMP, CBC, LIPASE #### [facility] [address] Platelets (Bld) [#/Vol] 227 10*3/uL Normal 150-450 [facility] Comment on above: Performed By: #### H S TROP, CMP, CBC, LIPASE #### [facility] [address] RBC (Bld) [#/Vol] 4.35 10*6/uL Normal 3.60-5.00 [facility] Comment on above: Performed By: #### H S TROP, CMP, CBC, LIPASE #### [facility] [address] [place] [address] WBC (Bld) [#/Vol] 12.1 10*3/uL High 3.8-11.6 [facility] Comment on above: Performed By: #### H S TROP, CMP, CBC, LIPASE #### [facility] [address] [place] [address] Creatinine [Mass/volume] in Serum or PlasmaOrdered By: Xiang Kellogg on 04-18-2023 Creatinine [Mass/Vol] 0.80 mg/dL 0.60-1.20 [facility] Eosinophils Auto (Bld) [#/Vo l]Ordered By: Xiang Kellogg on 04-18-2023 Eosinophils (Bld) [#/Vol] 0.0 10*3/uL 0.0-0.45 [facility] Eosinophils/100 WBC Auto (Bl d)Ordered By: Xiang Kellogg on 04-18-2023 Eosinophils/100 WBC (Bld) 0.2 % . [facility] Erythrocyte distribution wid th Auto (RBC) [Ratio]Ordered By: Xiang Kellogg on 04-18-2023 Erythrocyte distribution width (RBC) [Ratio] 13.4 % 11.9-15.3 [facility] Ethanol [Mass/volume] in Ser um or PlasmaOrdered By: Xiang Kellogg on 04-18-2023 Ethanol [Mass/Vol] mg/dL [facility] Ethanol [Mass/Vol] TNP [facility] Comment on above: Test not performed Ethyl Alcohol Profileon 04-09 Ethanol [Mass/Vol] mg/dL Normal [facility] Comment on above: Performed By: #### H S TROP, CMP, CBC, LIPASE #### [facility] [address] Percent Ethanol Not performed Normal [facility] Comment on above: Result Comment: PERF ORMED BY: [place] [address] PATHOLOGIST [employer]ATIONAL TECH[employer] EDUCATION TE[employer]ER PAULA RODRIGUES M.D. Performed By: #### H S TROP, CMP, CBC, LIPASE #### [facility] [address] Globulin Calc (S) [Mass/Vol] Ordered By: Xiang Kellogg on 04-18-2023 Globulin (S) [Mass/Vol] 2.2 g/dL [facility] Glucose [Mass/volume] in Ser um or PlasmaOrdered By: Xiang Kellogg on 04-18-2023 Glucose [Mass/Vol] 108 mg/dL 70-100 [facility] Comment on above: ADA recommended refe rence rangeRandom Glucose Reference Range is dependent on time and content of last meal. Glucose of more than 200 mg/dL in a nonstressed, ambulatory subject supports the diagnosis of Diabetes Mellitus. Hematocrit Auto (Bld) [Volum e fraction]Ordered By: Xiang Kellogg on 04-18-2023 Hematocrit (Bld) [Volume fraction] 41.6 % 34.0-46.4 [facility] Hemoglobin [Mass/volume] in BloodOrdered By: Xiang Kellogg on 04-18-2023 Hemoglobin (Bld) [Mass/Vol] 14.3 g/dL 11.8-15.4 [facility] Hepatic Panelon 04-18-2023 Albumin [Mass/Vol] 4.5 g/dL Normal 3.5-5.7 [facility] Comment on above: Performed By: #### H S TROP, CMP, CBC, LIPASE #### [facility] [address] Albumin/Globulin [Mass ratio] 2.0 {ratio} Normal [facility] Comment on above: Performed By: #### H S TROP, CMP, CBC, LIPASE #### [facility] [address] ALP [Catalytic activity/Vol] 107 U/L High 34-104 [facility] Comment on above: Performed By: #### H S TROP, CMP, CBC, LIPASE #### [facility] [address] ALT [Catalytic activity/Vol] 9 U/L Normal 7-52 [facility] Comment on above: Performed By: #### H S TROP, CMP, CBC, LIPASE #### [facility] [address] AST [Catalytic activity/Vol] 14 U/L Normal 13-39 [facility] Comment on above: Performed By: #### H S TROP, CMP, CBC, LIPASE #### [facility] [address] [place] [address] Bilirubin [Mass/Vol] 0.3 mg/dL Normal 0.3-1.0 [facility] Comment on above: Performed By: #### H S TROP, CMP, CBC, LIPASE #### [facility] [address] [place] [address] Bilirubin,Indirect 0.3 mg/dL Normal [facility] Comment on above: Performed By: #### H S TROP, CMP, CBC, LIPASE #### [facility] [address] Bilirubin.indirect [Mass/Vol] 0.00 mg/dL Low 0.03-0.18 [facility] Comment on above: Result Comment: If t he DBIL is less than 0.1, IBIL is not able to be calculated. Performed By: #### H S TROP, CMP, CBC, LIPASE #### [facility] [address] [place] [address] Globulin (S) [Mass/Vol] 2.2 g/dL Normal [facility] Comment on above: Performed By: #### H S TROP, CMP, CBC, LIPASE #### [facility] [address] Protein [Mass/Vol] 6.7 g/dL Normal 6.4-8.9 [facility] Comment on above: Performed By: #### H S TROP, CMP, CBC, LIPASE #### [facility] [address] Leukocytes [#/volume] correc aurelia for nucleated erythrocytes in Blood by Automated counOrdered By: Xiang Kellogg on 04-18-2023 WBC corrected for nucl RBC Auto (Bld) [#/Vol] 12.1 10*3/uL 3.8-11.6 [facility] Lipaseon 04-18-2023 Lipase [Catalytic activity/Vol] 47.0 U/L Normal 11.0-82.0 [facility] Comment on above: Result Comment: PERF ORMED BY: [place] [address] PATHOLOGIST V[employer]ATIONAL TECH[employer] EDUCATION TEACHER PAULA RODRIGUES M.D. Performed By: #### H S TROP, CMP, CBC, LIPASE #### [facility] [address] [place] [address] Lipase [Enzymatic activity/v olume] in Serum or PlasmaOrdered By: Xiang Kellogg on 04-18-2023 Lipase [Catalytic activity/Vol] 47.0 U/L 11.0-82.0 [facility] Lymphocytes Auto (Bld) [#/Vo l]Ordered By: Xiang Kellogg on 04-18-2023 Lymphocytes (Bld) [#/Vol] 1.6 10*3/uL 1.00-4.8 [facility] Lymphocytes/100 WBC Auto (Bl d)Ordered By: Xiang Kellogg on 04-18-2023 Lymphocytes/100 WBC (Bld) 12.8 % . [facility] MCH Auto (RBC) [Entitic mass ]Ordered By: Xiang Kellogg on 04-18-2023 MCH (RBC) [Entitic mass] 32.7 pg 24.7-34.3 [facility] MCHC Auto (RBC) [Mass/Vol]Or dered By: Xiang Kellogg on 04-18-2023 MCHC (RBC) [Mass/Vol] 34.3 g/dL 32.0-35.0 [facility] MCV Auto (RBC) [Entitic vol] Ordered By: Xiang Kellogg on 04-18-2023 MCV (RBC) [Entitic vol] 95.5 fL 80-100 [facility] Monocyte distribution width [Entitic volume] in Blood by AutomatedOrdered By: Xiang Kellogg on 04-18-2023 Monocyte distribution width Auto (Bld) [Entitic vol] 16.25 % 0.00-20.00 [facility] Monocytes Auto (Bld) [#/Vol] Ordered By: Xiang Kellogg on 04-18-2023 Monocytes (Bld) [#/Vol] 0.6 10*3/uL 0.0-0.8 [facility] Monocytes/100 WBC Auto (Bld) Ordered By: Xiang Kellogg on 04-18-2023 Monocytes/100 WBC (Bld) 5.4 % . [facility] Neutrophils Auto (Bld) [#/Vo l]Ordered By: Xiang Kellogg on 04-18-2023 Neutrophils (Bld) [#/Vol] 9.8 10*3/uL 1.8-7.7 [facility] Neutrophils/100 WBC Auto (Bl d)Ordered By: Xiang Kellogg on 04-18-2023 Neutrophils/100 WBC (Bld) 80.8 % . [facility] No Panel InformationOrdered By: Xiang Kellogg on 04-18-2023 Estimated GFR (CKD-EPI) > 60.0 mL/Min [facility] Creatinine Clearance (Chem 64.32 [facility] Nucleated erythrocytes [Pres ence] in Blood by Automated countOrdered By: Xiang Kellogg on 04-18-2023 Nucleated RBC Auto Ql (Bld) 0.0 /100{WBC} 0-0.5 [facility] Platelet mean volume Auto (B ld) [Entitic vol]Ordered By: Xiang Kellogg on 04-18-2023 Platelet mean volume (Bld) [Entitic vol] 8.1 fL 6.3-10.7 [facility] Platelets Auto (Bld) [#/Vol] Ordered By: Xiang Kellogg on 04-18-2023 Platelets (Bld) [#/Vol] 227 10*3/uL 150-450 [facility] Potassium [Moles/volume] in Serum or PlasmaOrdered By: Xiang Kellogg on 04-18-2023 Potassium [Moles/Vol] 3.2 mmol/L 3.5-5.1 [facility] Protein [Mass/volume] in Ser um or PlasmaOrdered By: Xiang Kellogg on 04-18-2023 Protein [Mass/Vol] 6.7 g/dL 6.4-8.9 [facility] RBC Auto (Bld) [#/Vol]Ordere d By: Xiang Kellogg on 04-18-2023 RBC (Bld) [#/Vol] 4.35 10*6/uL 3.60-5.00 [facility] Serum or plasma albumin/glob ulin mass ratioOrdered By: Xiang Kellogg on 04-18-2023 Albumin/Globulin [Mass ratio] 2.0 {ratio} [facility] Serum or plasma anion gap de terminationOrdered By: Xiang Kellogg on 04-18-2023 Anion gap [Moles/Vol] 10.0 mmol/L 6.0-15.0 [facility] Serum or plasma non-glucuron idated bilirubin measurement (mass/volume)Ordered By: Xiang Kellogg on 04-18-2023 Bilirubin.indirect [Mass/Vol] 0.3 mg/dL [facility] Sodium [Moles/volume] in Ser um or PlasmaOrdered By: Xiang Kellogg on 04-18-2023 Sodium [Moles/Vol] 140 mmol/L 136-145 [facility] Urea nitrogen [Mass/volume] in Serum or PlasmaOrdered By: Xiang Kellogg on 04-18-2023 Urea nitrogen [Mass/Vol] 7 mg/dL 7-25 [facility] WBC Auto (Bld) [#/Vol]Ordere d By: Xiang Kellogg on 04-18-2023 WBC (Bld) [#/Vol] 12.1 10*3/uL 3.8-11.[address] [facility] [address] abdomen pelvis w conon CT abdomen pelvis w [facility] [place] [address] CT Scan Report Signed Patient: Chioma Arciniega MR#: [id number] : 1970 Acct:[id number] Age/Sex: 52 / F ADM Date: 04/11/23 Loc: ER Room: Type: [facility] ER Attending Dr: Copies to: Rivera Lopez DO Ordering Provider: Rivera Lopez DO Date of Service: 04/11/23 CT/CT abdomen pelvis w con: Abdominal Pain CT ABDOMEN AND PELVIS WITH CONTRAST CLINICAL DATA: Epigastric pain radiating to the left lower quadrant. Nausea and vomiting. COMPARISON: 04/02/2023 Spiral images were obtained through the abdomen and pelvis following 90 mL of Isovue-300. This CT exam was performed using one or more following dose reduction techniques: Automated exposure control, adjustment of the mA and/or kV according to patient size, or use of iterative reconstruction technique. Limited cuts through the lung bases show a small hiatal hernia. The gallbladder is surgically absent. The common duct is dilated however no stones are seen. The bile does appear mildly hyperdense in comparison to the prior. There are no intrahepatic masses. The spleen and pancreas show no acute findings. There is a stable left adrenal nodule. Symmetric renal nephrograms are seen, without hydronephrosis. There is atherosclerotic plaque at the aorta. No enlarged lymph nodes or ascites are seen. The small bowel loops are not distended. There is minimal colonic stool. Subtle levoscoliotic curvature and similar degenerative changes are present at the spine. Images through the pelvis show no dilated small bowel. There is stool at a low-lying cecum and distal colon intermixed with hyperdense material. No diverticular disease is noted. There is no appendiceal inflammation. The urinary bladder is not well distended for assessment. The uterus is surgically absent. No ascites is seen. CT/CT abdomen pelvis w con IMPRESSION: SMALL HIATAL HERNIA. CONTINUED BILIARY DILATATION THAT MAY RELATE TO PREVIOUS CHOLECYSTECTOMY. NO BOWEL OR URINARY TRACT OBSTRUCTION. NO ACUTE FINDINGS. Impression dictated by: Nai Salazar M.D.04/12/2023 9:01 AM Dictation Location: [place] [address] Transcribed By: [facility] 04/12/23900 Dictated By: Nai Salazar MD 04/12/23 0856 Signed By: 04/12/23900 Normal [facility] Dipstick and Microscopicon 0 04-12-2023 Appearance (U) Turbid Critically abnormal Clear [facility] Comment on above: Order Comment: Name Collection Type:: Clean-Voided Midstream Performed By: #### H S TROP, CMP, CBC, LIPASE #### [facility] [address] [place] [address] Bacteria,Urine None Seen Normal None Seen [facility] Comment on above: Order Comment: Name Collection Type:: Clean-Voided Midstream Performed By: #### H S TROP, CMP, CBC, LIPASE #### [place] [address] [place] Bilirubin,Urine Negative Normal Negative [facility] Comment on above: Order Comment: Name Collection Type:: Clean-Voided Midstream Performed By: #### H S TROP, CMP, CBC, LIPASE #### [place] [address] [place] Color (U) Yellow Normal Yellow [facility] Comment on above: Order Comment: Name Collection Type:: Clean-Voided Midstream Performed By: #### H S TROP, CMP, CBC, LIPASE #### [facility] [address] [place] [address] [place] Glucose Ql (U) Normal Normal Normal [facility] Comment on above: Order Comment: Name Collection Type:: Clean-Voided Midstream Performed By: #### H S TROP, CMP, CBC, LIPASE #### [facility] [address] [place] [address] [place] Hyaline Casts,Urine None Seen Normal 0-8 [facility] Comment on above: Order Comment: Name Collection Type:: Clean-Voided Midstream Result Comment: PERF ORMED BY: [place] [address] PATHOLOGIST VOCATIONAL TECH[employer]ICAL EDUCATION TEACHER PAULA RODRIGUES M.D. Performed By: #### H S TROP, CMP, CBC, LIPASE #### [facility] [address] [place] [address] [place] Ketones Ql (U) Negative Normal Negative [facility] Comment on above: Order Comment: Name Collection Type:: Clean-Voided Midstream Performed By: #### H S TROP, CMP, CBC, LIPASE #### [address] Leukocyte esterase Test strip Ql (U) Negative Normal Negative [facility] Comment on above: Order Comment: Name Collection Type:: Clean-Voided Midstream Performed By: #### H S TROP, CMP, CBC, LIPASE #### [address] Nitrite,Urine Negative Normal Negative [facility] Comment on above: Order Comment: Name Collection Type:: Clean-Voided Midstream Performed By: #### H S TROP, CMP, CBC, LIPASE #### [address] Occult Blood,Urine Negative Normal Negative [facility] Comment on above: Order Comment: Name Collection Type:: Clean-Voided Midstream Result Comment: PERF ORMED BY: [place] [address] PATHOLOGIST VOCATIONAL TECHNICAL EDUCATION TEACHER PAULA RODRIGUES M.D. Performed By: #### H S TROP, CMP, CBC, LIPASE #### [address] pH (U) 8.0 [pH] Normal 5.0-9.0 [facility] Comment on above: Order Comment: Name Collection Type:: Clean-Voided Midstream Performed By: #### H S TROP, CMP, CBC, LIPASE #### [address] Protein,Urine Negative Normal Negative [facility] Comment on above: Order Comment: Name Collection Type:: Clean-Voided Midstream Performed By: #### H S TROP, CMP, CBC, LIPASE #### [address] RBC LM.HPF (Urine sed) [#/Area] 0 /[HPF] Normal 0-4 [facility] Comment on above: Order Comment: Name Collection Type:: Clean-Voided Midstream Performed By: #### H S TROP, CMP, CBC, LIPASE #### [facility] [address] Specificy [place],Urine > 1.050 High 1.001-1.03 0 [facility] Comment on above: Order Comment: Name Collection Type:: Clean-Voided Midstream Performed By: #### H S TROP, CMP, CBC, LIPASE #### [address] Squamous Epithelial Cell,Urine 0-1 Normal 0-2 [facility] Comment on above: Order Comment: Name Collection Type:: Clean-Voided Midstream Performed By: #### H S TROP, CMP, CBC, LIPASE #### [address] Urobilinogen,Urine Normal Normal Normal [facility] Comment on above: Order Comment: Name Collection Type:: Clean-Voided Midstream Performed By: #### H S TROP, CMP, CBC, LIPASE #### [address] WBC,Urine 3-4 Normal 0-4 [facility] Comment on above: Order Comment: Name Collection Type:: Clean-Voided Midstream Performed By: #### H S TROP, CMP, CBC, LIPASE #### [address] Activated partial thrombopla stin time (aPTT) in platelet poor plasma by coagulation aOrdered By: Rivera Lopez on 04-11-2023 aPTT Coag (PPP) [Time] 23.3 s 25.1-36.5 [facility] Comment on above: A hematocrit value g reater than 55% may lead to inaccurate results in coagulation testing. Patients having hematocrit values >55% require a special collection tube for coagulation studies. Please contact the laboratory at [phone] for redraw instructions. Alanine aminotransferase [En zymatic activity/volume] in Serum or PlasmaOrdered By: Rivera Lopez on 04-11-2023 ALT [Catalytic activity/Vol] 13 U/L 7-52 [facility] Albumin [Mass/volume] in Ser um or Plasma by Bromocresol green (BCG) dye binding methoOrdered By: Rivera Lopez on 04-11-2023 Albumin BCG dye [Mass/Vol] 4.5 g/dL 3.5-5.7 [facility] Alkaline phosphatase [Enzyma tic activity/volume] in Serum or PlasmaOrdered By: Rivera Lopez on 04-11-2023 ALP [Catalytic activity/Vol] 111 U/L 34-104 [facility] Aspartate aminotransferase [ Enzymatic activity/volume] in Serum or PlasmaOrdered By: Rivera Lopez on 04-11-2023 AST [Catalytic activity/Vol] 17 U/L 13-39 [facility] Automated erythrocytes count in urine sediment (number/area)Ordered By: Rivera Lopez on 04-11-2023 RBC Auto (Urine sed) [#/Area] 0-1 [HPF] 0-4 [facility] Automated leukocytes count i n urine sediment (number/area)Ordered By: Rivera Lopez on 04-11-2023 WBC Auto (Urine sed) [#/Area] 3-4 [HPF] 0-4 [facility] Basic Metabolic Panelon Anion gap [Moles/Vol] 14.1 mmol/L Normal 6.0-15.0 [facility] Comment on above: Performed By: #### H S TROP, CMP, CBC, LIPASE #### [facility] [address] Calcium [Mass/Vol] 10.3 mg/dL Normal 8.6-10.3 [facility] Comment on above: Performed By: #### H S TROP, CMP, CBC, LIPASE #### [facility] [address] [place] [address] [place] Chloride [Moles/Vol] 103 mmol/L Normal 98-107 [facility] Comment on above: Performed By: #### H S TROP, CMP, CBC, LIPASE #### [facility] [address] [place] [id number] [place] CO2 [Moles/Vol] 26.9 mmol/L Normal 21.0-31.0 [facility] Comment on above: Performed By: #### H S TROP, CMP, CBC, LIPASE #### [facility] [address] [place] [address] [place] Creatinine [Mass/Vol] 0.86 mg/dL Normal 0.60-1.20 [facility] Comment on above: Performed By: #### H S TROP, CMP, CBC, LIPASE #### [facility] [address] [place] [address] [place] Creatinine Clr Calc Pharmacy 59.83 [facility] Comment on above: Performed By: #### H S TROP, CMP, CBC, LIPASE #### [facility] [address] [place] [address] [place] GFR/1.73 sq M.predicted MDRD (S/P/Bld) [Vol rate/Area] mL/min/{1.73_m2} [facility] Comment on above: Performed By: #### H S TROP, CMP, CBC, LIPASE #### [address] Glucose [Mass/Vol] 121 mg/dL High 70-100 [facility] Comment on above: Result Comment: [facility] Glucose Reference Range is dependent on time and content of last meal. Glucose of more than 200 mg/dL in a nonstressed, ambulatory subject supports the diagnosis of Diabetes Mellitus. ADA recommended reference range Performed By: #### H S TROP, CMP, CBC, LIPASE #### [facility] [address] Potassium [Moles/Vol] 4.0 mmol/L Normal 3.5-5.1 [facility] Comment on above: Performed By: #### H S TROP, CMP, CBC, LIPASE #### [facility] [address] [place] [address] [place] Sodium [Moles/Vol] 140 mmol/L Normal 136-145 [facility] Comment on above: Performed By: #### H S TROP, CMP, CBC, LIPASE #### [facility] [address] [place] [address] [place] Urea nitrogen [Mass/Vol] 5 mg/dL Low 7-25 [facility] Comment on above: Performed By: #### H S TROP, CMP, CBC, LIPASE #### [facility] [address] Basophils Auto (Bld) [#/Vol] Ordered By: Rivera Lopez on 04-11-2023 Basophils (Bld) [#/Vol] 0.1 10*3/uL 0.0-0.2 [facility] Basophils/100 WBC Auto (Bld) Ordered By: Rivera Lopez on 04-11-2023 Basophils/100 WBC (Bld) 0.4 % . [facility] Bilirubin Test strip Ql (U)O rdered By: Rivera Lopez on 04-11-2023 Bilirubin Ql (U) Negative Negative [facility] Bilirubin.direct [Mass/volum e] in Serum or PlasmaOrdered By: Rivera Lopez on 04-11-2023 Bilirubin.direct [Mass/Vol] 0.00 mg/dL 0.03-0.18 [facility] Comment on above: If the DBIL is less than 0.1, IBIL is not able to becalculated. Bilirubin.total [Mass/volume ] in Serum or PlasmaOrdered By: Rivera Lopez on 04-11-2023 Bilirubin [Mass/Vol] 0.3 mg/dL 0.3-1.0 [facility] CBC AND AUTO DIFFon 04-11-19 24 ABSOLUTE BASOPHIL 0.1 X10E9/L Normal 0.0-0.2 [facility] Comment on above: Performed By: #### C EZEQUIEL CMP, #### [facility] ([id number]) [address] [place] [address] 62475 ABSOLUTE NEUTROPHIL 12.5 X10E9/L High 1.5-6.6 [facility] Comment on above: Performed By: #### C BCA, CMP, 9 #### [facility] ([id number]) [address] [place] [address] 94882 Basophils/100 WBC (Bld) 0.4 % Normal [facility] Comment on above: Performed By: #### C BCA, CMP, -9 #### [facility] ([id number]) [address] [place] [address] 65103 Eosinophils (Bld) [#/Vol] 0.1 10*3/uL Normal 0.0-0.4 [facility] Comment on above: Performed By: #### Clara NIEVES, [facility], 3039-05, #### [facility] ([id number]) [address] [place] [address] 09677 Eosinophils/100 WBC (Bld) 0.5 % Normal [facility] Comment on above: Performed By: #### Clara NIEVES, [facility], 3039-05, #### [facility] ([id number]) [address] [place] [address] 26786 Erythrocyte distribution width (RBC) [Ratio] 13.2 % Normal 11.5-15.0 [facility] Comment on above: Performed By: #### Clara NIEVES [facility], 3039-05, #### [facility] ([id number]) [address] [place] [address] 94996 Hematocrit (Bld) [Volume fraction] 44.6 % Normal 35-47 [facility] Comment on above: Performed By: #### Clara NIEVES, [facility], 3039-05, #### [facility] ([id number]) [address] [place] [address] 57035 Hemoglobin (Bld) [Mass/Vol] 15.2 g/dL Normal 11.7-15.5 [facility] Comment on above: Performed By: #### Clara NIEVES, CMP, 3039-05, #### [facility] ([id number]) [address] [place] [address] 67080 Lymphocytes (Bld) [#/Vol] 1.3 10*3/uL Normal 1.0-3.5 [facility] Comment on above: Performed By: #### C EZEQUIEL, CMP, 3039-05, #### [facility] ([id number]) [address] [place] [address] 52630 Lymphocytes/100 WBC (Bld) 8.7 % Normal [facility] Comment on above: Performed By: #### C EZEQUIEL, CMP, 3039-05, #### [facility] ([id number]) [address] [place] [address] 37421 MCH (RBC) [Entitic mass] 32.8 pg Normal 27-34 [facility] Comment on above: Performed By: #### C EZEQUIEL, CMP, 3039-05, #### [facility] ([id number]) [address] [place] [address] 85826 MCHC (RBC) [Mass/Vol] 34.1 g/dL Normal 32-36 [facility] Comment on above: Performed By: #### C EZEQUIEL, CMP, 3039-05, #### [facility] ([id number]) [address] [place] [address] 83193 MCV (RBC) [Entitic vol] 96 fL Normal 80-100 [facility] Comment on above: Performed By: #### C EZEQUIEL, CMP, 3039-05, #### [facility] ([id number]) [address] [place] [address] 19591 Monocytes (Bld) [#/Vol] 0.7 10*3/uL Normal 0-0.9 [facility] Comment on above: Performed By: #### C BCA, CMP, 3039-05, #### [facility] ([id number]) [address] [place] [address] 45273 Monocytes/100 WBC (Bld) 4.5 % Normal [facility] Comment on above: Performed By: #### C EZEQUIEL, CMP, 3039-05, #### [facility] ([id number]) [address] [place] [address] 01861 Neutrophils/100 WBC (Bld) 85.9 % Normal [facility] Comment on above: Performed By: #### C EZEQUIEL, CMP, 3039-05, #### [facility] ([id number]) [address] [place] [address] 00885 Platelet mean volume (Bld) [Entitic vol] 7.5 fL Normal 7-12 [facility] Comment on above: Performed By: #### Clara NIEVES, CMP, 3039-05, #### [facility] ([id number]) [address] [place] [address] 37826 Platelets (Bld) [#/Vol] 307 10*3/uL Normal 150-450 [facility] Comment on above: Performed By: #### Clara NIEVES CMP, 3039-05, 77286-2 #### [facility] ([id number]) [address] [place] [address] 50850 RBC COUNT 4.64 X10E12/L Normal 3.80-5.20 [facility] Comment on above: Performed By: #### Clara NIEVES CMP, 3039-05, #### [facility] ([id number]) [address] [place] [address] 77854 WBC (Bld) [#/Vol] 14.5 10*3/uL High 4.0-11.0 [facility] Comment on above: Performed By: #### Clara NIEVES, CMP, 3039-05, 00549-1 #### [facility] ([id number]) [address] [place] [address] 04204 COMPREHENSIVE METABOLIC PANE Nimesh 04-11-2023 Albumin [Mass/Vol] 4.7 g/dL Normal 3.2-5.3 [facility] Comment on above: Performed By: #### C BCA, CMP, 3039-05, 62484-8 #### [facility] ([id number]) [address] [place] [address] 56498 ALP [Catalytic activity/Vol] 131 U/L High 39-130 [facility] Comment on above: Performed By: #### C BCA, CMP, 3039-05, #### [facility] ([id number]) [address] [place] [address] 68895 ALT [Catalytic activity/Vol] 18 U/L Normal 0-31 [facility] Comment on above: Performed By: #### C BCA, CMP, 3039-05, 40756-0 #### [facility] ([id number]) [address] [place] [address] 54445 Anion gap [Moles/Vol] 9 mmol/L Normal 5-15 [facility] Comment on above: Performed By: #### C BCA, CMP, 3039-05, 46303-3 #### [facility] ([id number]) [address] [place] [address] 34882 AST [Catalytic activity/Vol] 23 U/L Normal 0-41 [facility] Comment on above: Performed By: #### C BCA, CMP, 3039-05, 10804-8 #### [facility] ([id number]) [address] [place] [address] 85005 Bilirubin [Mass/Vol] 0.5 mg/dL Normal 0.3-1.2 [facility] Comment on above: Performed By: #### C BCA, CMP, 3039-05, 69893-6 #### [facility] ([id number]) [address] [place] [address] 54318 Calcium [Mass/Vol] 11.4 mg/dL High 8.5-10.5 [facility] Comment on above: Performed By: #### C BONNIE NIEVES, 3, 89441-0 #### [facility] ([id number]) [address] [place] [address] 22964 Chloride [Moles/Vol] 99 mmol/L Normal 98-109 [facility] Comment on above: Performed By: #### C BONNIE NIEVES, 3039-05, 69056-9 #### [facility] ([id number]) [address] [place] [address] 86162 CO2 [Moles/Vol] 28 mmol/L Normal 22-32 [facility] Comment on above: Performed By: #### C BONNIE NIEVES, 3039-05, 00357-5 #### [facility] ([id number]) [address] [place] [address] 61909 Creatinine [Mass/Vol] 0.95 mg/dL Normal 0.40-1.00 [facility] Comment on above: Result Comment: METH OD TRACEABLE TO IDMS STANDARD Performed By: #### C BONNIE NIEVES, 3039-05, 07368-8 #### [facility] ([id number]) [address] [place] [address] 81743 GFR/1.73 sq M.predicted among non-blacks MDRD (S/P/Bld) [Vol rate/Area] 72 mL/min/{1.73_m2} Normal >59 [facility] Comment on above: Result Comment: Reported eGFR is based on the CKD-EPI 2020 equation that does not use a race coefficient. Performed By: #### C BONNIE NIEVES, 3, 25483-2 #### [facility] ([id number]) [address] [place] [address] 40148 Glucose [Mass/Vol] 126 mg/dL High 65-99 [facility] Comment on above: Performed By: #### C BONNIE NIEVES, 3039-05, 95487-8 #### [facility] ([id number]) [address] [place] [address] 73915 Potassium [Moles/Vol] 3.2 mmol/L Low 3.5-5.0 [facility] Comment on above: Performed By: #### C BCA, CMP, 3040-3, 95602-9 #### [facility] ([id number]) [address] [place] [address] 85803 Protein [Mass/Vol] 7.5 g/dL Normal 6.0-8.0 [facility] Comment on above: Performed By: #### C BCA, CMP, 3040-3, 56358-0 #### [facility] ([id number]) [address] [place] [address] 49112 Sodium [Moles/Vol] 136 mmol/L Normal 134-146 [facility] Comment on above: Performed By: #### C BCA, CMP, 3040-3, 41530-8 #### [facility] ([id number]) [address] [place] [address] 51404 Urea nitrogen [Mass/Vol] 6 mg/dL Normal 5-23 [facility] Comment on above: Performed By: #### C BCA, CMP, 3040-3, 42181-0 #### [facility] ([id number]) [address] [place] [address] ABDOMEN AND PELVIS W CONT on 04-11-2023 CT ABDOMEN AND PELVIS W CONT CT ABDOMEN AND PELVIS W CONT CT ABDOMEN AND PELVIS WITH CONTRAST CLINICAL INFORMATION: Acute nonlocalized abdominal pain TECHNIQUE: Multidetector spiral CT scan of the abdomen and pelvis was performed following the uneventful administration of nonionic intravenous contrast. Coronal and sagittal reformatted images were obtained and reviewed. Automated exposure control was utilized. Following the intravenous injection of 100 cc of Omnipaque 300, a CT of the abdomen and pelvis and sagittal and coronal reformats obtained. All CT scans at this facility use dose modulation, iterative reconstruction, and/or weight based dosing when appropriate to reduce radiation dose to as low as reasonably achievable. COMPARISON: CT dated 03/27/2023 FINDINGS: Small hiatal hernia. Mild intrahepatic biliary dilatation, significance undetermined in this setting of cholecystectomy, correlate with liver function tests. Pancreatic duct is minimally prominent as reported on the prior exam. Stable left adrenal nodule measuring 1.1 cm. No hydronephrosis or focal abnormality seen in the kidneys. Questionable mucosal wall thickening in the colon, however, the colon is nondistended which makes it difficult to assess on CT scan. The SMA and SMV are patent. IMPRESSION: 1. Examination is unchanged from the prior exam. Finalized by Clarissa Gentile MD on 04/11/2023 6:[address] [facility] Calcium [Mass/volume] in Ser um or PlasmaOrdered By: Rivera Lopez on 04-11-2023 Calcium [Mass/Vol] 10.3 mg/dL 8.6-10.3 [facility] Carbon dioxide, total [Moles /volume] in Serum or PlasmaOrdered By: Rivera Lopez on 04-11-2023 CO2 [Moles/Vol] 26.9 mmol/L 21.0-31.0 [facility] Chloride [Moles/volume] in S erika or PlasmaOrdered By: Rivera Lopez on 04-11-2023 Chloride [Moles/Vol] 103 mmol/L 98-107 [facility] Color Auto (U)Ordered By: Og red Jessica on 04-11-2023 Color (U) Yellow Yellow [facility] Complete Blood Count Auto Di ffon 04-11-2023 Basophils (Bld) [#/Vol] 0.1 10*3/uL Normal 0.0-0.2 [facility] Comment on above: Result Comment: PERF ORMED BY: [place] [address] PATHOLOGIST VOCATIONAL TECHNICAL EDUCATION TEACHER PAULA RODRIGUES M.D. Performed By: #### H S TROP, CMP, CBC, LIPASE #### [address] Basophils/100 WBC (Bld) 0.4 % Normal . [facility] Comment on above: Performed By: #### H S TROP, CMP, CBC, LIPASE #### [address] Eosinophils (Bld) [#/Vol] 0.0 10*3/uL Normal 0.0-0.45 [facility] Comment on above: Performed By: #### H S TROP, CMP, CBC, LIPASE #### [address] Eosinophils/100 WBC (Bld) 0.0 % Normal . [facility] Comment on above: Performed By: #### H S TROP, CMP, CBC, LIPASE #### [address] Erythrocyte distribution width (RBC) [Ratio] 13.6 % Normal 11.9-15.3 [facility] Comment on above: Performed By: #### H S TROP, CMP, CBC, LIPASE #### [address] Hematocrit (Bld) [Volume fraction] 41.3 % Normal 34.0-46.4 [facility] Comment on above: Performed By: #### H S TROP, CMP, CBC, LIPASE #### [address] Hemoglobin (Bld) [Mass/Vol] 13.7 g/dL Normal 11.8-15.4 [facility] Comment on above: Performed By: #### H S TROP, CMP, CBC, LIPASE #### [address] Lymphocytes (Bld) [#/Vol] 1.1 10*3/uL Normal 1.00-4.8 [facility] Comment on above: Performed By: #### H S TROP, CMP, CBC, LIPASE #### [address] Lymphocytes/100 WBC (Bld) 8.1 % Normal . [facility] Comment on above: Performed By: #### H S TROP, CMP, CBC, LIPASE #### [address] MCH (RBC) [Entitic mass] 32.2 pg Normal 24.7-34.3 [facility] Comment on above: Performed By: #### H S TROP, CMP, CBC, LIPASE #### [address] MCV (RBC) [Entitic vol] 96.8 fL Normal 80-100 [facility] Comment on above: Performed By: #### H S TROP, CMP, CBC, LIPASE #### [address] Mean Corpuscular HGB Conc 33.2 g/dL Normal 32.0-35.0 [facility] Comment on above: Performed By: #### H S TROP, CMP, CBC, LIPASE #### [address] Monocytes (Bld) [#/Vol] 0.6 10*3/uL Normal 0.0-0.8 [facility] Comment on above: Performed By: #### H S TROP, CMP, CBC, LIPASE #### [address] Monocytes/100 WBC (Bld) 17.01 % Normal 0.00-20.00 [facility] Comment on above: Performed By: #### H S TROP, CMP, CBC, LIPASE #### [address] Monocytes/100 WBC (Bld) 4.3 % Normal . [facility] Comment on above: Performed By: #### H S TROP, CMP, CBC, LIPASE #### [address] Neutrophils (Bld) [#/Vol] 12.1 10*3/uL High 1.8-7.7 [facility] Comment on above: Performed By: #### H S TROP, CMP, CBC, LIPASE #### [address] Neutrophils/100 WBC (Bld) 87.2 % Normal . [facility] Comment on above: Performed By: #### H S TROP, CMP, CBC, LIPASE #### [facility] [address] [place] [address] NRBC% 0.0 /100{WBC} Normal 0-0.5 [facility] Comment on above: Performed By: #### H S TROP, CMP, CBC, LIPASE #### [address] Platelet mean volume (Bld) [Entitic vol] 7.7 fL Normal 6.3-10.7 [facility] Comment on above: Performed By: #### H S TROP, CMP, CBC, LIPASE #### [address] Platelets (Bld) [#/Vol] 262 10*3/uL Normal 150-450 [facility] Comment on above: Performed By: #### H S TROP, CMP, CBC, LIPASE #### [address] RBC (Bld) [#/Vol] 4.27 10*6/uL Normal 3.60-5.00 [facility] Comment on above: Performed By: #### H S TROP, CMP, CBC, LIPASE #### [address] WBC (Bld) [#/Vol] 13.9 10*3/uL High 3.8-11.6 [facility] Comment on above: Performed By: #### H S TROP, CMP, CBC, LIPASE #### [address] Creatinine [Mass/volume] in Serum or PlasmaOrdered By: Rivera Lopez on 04-11-2023 Creatinine [Mass/Vol] 0.86 mg/dL 0.60-1.20 [facility] ECG 12 lead ECGon 04-11-2023 ECG 12 lead ECG [facility] Main [place] [address] [place] [address] Electrocardiograph Report Signed Patient: Chioma Arciniega MR#: [id number] : 1970 Acct:[id number] Age/Sex: 52 / F ADM Date: 04/11/23 Loc: ER Room: Type: [facility] ER Attending Dr: Ordering Provider: Rivera Lopez DO Date of Service: 04/11/2305/30/2122 ECG/ECG 12 lead ECG: Abdominal Pain Copies to: Test Reason : Blood Pressure : 155/099 mmHG Vent. Rate : 117 BPM Atrial Rate : 117 BPM P-R Int : 134 ms QRS Dur : 068 ms QT Int : 306 ms P-R-T Axes : 079 073 062 degrees QTc Int : 426 ms Sinus tachycardia Otherwise normal ECG When compared with ECG of 02-APR-2023 14:06, No significant change was found Confirmed by Rivera Lopez DO ([id number]) on 04/12/2023 12:05:50 AM Referred By: Electronically Signed By:Rivera Lopez DO Transcribed By: MUS Signed By Rivera Lopez DO 4 0005 Normal [facility] Eosinophils Auto (Bld) [#/Vo l]Ordered By: Rivera Lopez on 04-11-2023 Eosinophils (Bld) [#/Vol] 0.0 10*3/uL 0.0-0.45 [facility] Eosinophils/100 WBC Auto (Bl d)Ordered By: Rivera Lopez on 04-11-2023 Eosinophils/100 WBC (Bld) 0.0 % . [facility] Erythrocyte distribution wid th Auto (RBC) [Ratio]Ordered By: Rivera Lopez on 04-11-2023 Erythrocyte distribution width (RBC) [Ratio] 13.6 % 11.9-15.3 [facility] Globulin Calc (S) [Mass/Vol] Ordered By: Rivera Lopez on 04-11-2023 Globulin (S) [Mass/Vol] 2.4 g/dL [facility] Glucose [Mass/volume] in Ser um or PlasmaOrdered By: Rivera Lopez on 04-11-2023 Glucose [Mass/Vol] 121 mg/dL 70-100 [facility] Comment on above: ADA recommended refe rence rangeRandom Glucose Reference Range is dependent on time and content of last meal. Glucose of more than 200 mg/dL in a nonstressed, ambulatory subject supports the diagnosis of Diabetes Mellitus. Hematocrit Auto (Bld) [Volum e fraction]Ordered By: Rivera Lopez on 04-11-2023 Hematocrit (Bld) [Volume fraction] 41.3 % 34.0-46.4 [facility] Hemoglobin [Mass/volume] in BloodOrdered By: Rivera Lopez on 04-11-2023 Hemoglobin (Bld) [Mass/Vol] 13.7 g/dL 11.8-15.4 [facility] Hepatic Panelon 04-11-2023 Albumin [Mass/Vol] 4.5 g/dL Normal 3.5-5.7 [facility] Comment on above: Performed By: #### H S TROP, CMP, CBC, LIPASE #### [facility] [address] Albumin/Globulin [Mass ratio] 1.9 {ratio} Normal [facility] Comment on above: Performed By: #### H S TROP, CMP, CBC, LIPASE #### [facility] [address] ALP [Catalytic activity/Vol] 111 U/L High 34-104 [facility] Comment on above: Performed By: #### H S TROP, CMP, CBC, LIPASE #### [facility] [address] [place] [address] [place] ALT [Catalytic activity/Vol] 13 U/L Normal 7-52 [facility] Comment on above: Performed By: #### H S TROP, CMP, CBC, LIPASE #### [facility] [address] [place] [id number] [place] AST [Catalytic activity/Vol] 17 U/L Normal 13-39 [facility] Comment on above: Performed By: #### H S TROP, CMP, CBC, LIPASE #### [facility] [address] [place] [id number] [place] Bilirubin [Mass/Vol] 0.3 mg/dL Normal 0.3-1.0 [facility] Comment on above: Performed By: #### H S TROP, CMP, CBC, LIPASE #### [facility] [address] [place] [address] [place] Bilirubin,Indirect 0.3 mg/dL Normal [facility] Comment on above: Performed By: #### H S TROP, CMP, CBC, LIPASE #### [facility] [address] Bilirubin.indirect [Mass/Vol] 0.00 mg/dL Low 0.03-0.18 [facility] Comment on above: Result Comment: If t he DBIL is less than 0.1, IBIL is not able to be calculated. Performed By: #### H S TROP, CMP, CBC, LIPASE #### [facility] [address] Globulin (S) [Mass/Vol] 2.4 g/dL Normal [facility] Comment on above: Performed By: #### H S TROP, CMP, CBC, LIPASE #### [facility] [address] Protein [Mass/Vol] 6.9 g/dL Normal 6.4-8.9 [facility] Comment on above: Performed By: #### H S TROP, CMP, CBC, LIPASE #### [facility] [address] INR in Platelet poor plasma by Coagulation assayOrdered By: Rivera Lopez on 04-11-2023 INR Coag (PPP) [Relative time] 1.0 {INR} [facility] Comment on above: INR Therapeutic Rang e A) Pre- and Peroperative OAT started two weeks before surgery. NOT HIP SURGERY: 1.5 - 2.5 HIP SURGERY: 2 - 3B) Primary and secondary prevention of venous THROMBOSIS: 2 - 3C) Active venous thrombosis, pulmonary embolismand prevention of recurrent venous thrombosis: 2 - 3D) Prevention of arterial thromboembolismincluding patients with mechanical heart valves: 3 - 4.5 Ketones Auto test strip (U) [Mass/Vol]Ordered By: Rivera Lopez on 04-11-2023 Ketones (U) [Mass/Vol] Negative Negative [facility] LIPASEon 04-11-2023 Lipase [Catalytic activity/Vol] 49 U/L High 17-40 [facility] Comment on above: Performed By: #### C BCA, CMP, 3040-3, 76945-9 #### [facility] ([id number]) [address] [facility] [place] [place] [address] Laboratory - UrinalysisOrder ed By: Rivera Lopez on 04-11-2023 Hyaline casts LM Ql (Urine sed) None seen [LPF] 0-8 [facility] Leukocytes [#/volume] correc aurelia for nucleated erythrocytes in Blood by Automated counOrdered By: Rivera Lopez on 04-11-2023 WBC corrected for nucl RBC Auto (Bld) [#/Vol] 13.9 10*3/uL 3.8-11.6 [facility] Lipaseon 04-11-2023 Lipase [Catalytic activity/Vol] 26.0 U/L Normal 11.0-82.0 [facility] Comment on above: Result Comment: PERF ORMED BY: [place] [address] PATHOLOGIST [employer]OC[employer] TECH[employer] EDUCATION TE[employer]ER PAULA RODRIGUES M.D. Performed By: #### H S TROP, CMP, CBC, LIPASE #### [address] Lipase [Enzymatic activity/v olume] in Serum or PlasmaOrdered By: Rivera Lopez on 04-11-2023 Lipase [Catalytic activity/Vol] 26.0 U/L 11.0-82.0 [facility] Lymphocytes Auto (Bld) [#/Vo l]Ordered By: Rivera Lopez on 04-11-2023 Lymphocytes (Bld) [#/Vol] 1.1 10*3/uL 1.00-4.8 [facility] Lymphocytes/100 WBC Auto (Bl d)Ordered By: Rivera Lopez on 04-11-2023 Lymphocytes/100 WBC (Bld) 8.1 % . [facility] MAGNESIUMon 04-11-2023 Magnesium [Mass/Vol] 2.0 mg/dL Normal 1.8-2.6 [facility] Comment on above: Performed By: #### C BCA, CMP, 3040-3, 79620-4, 25059-6, 35996- 9 #### [facility] ([id number]) [address] [facility] [place] [address] MCH Auto (RBC) [Entitic mass ]Ordered By: Rivera Lopez on 04-11-2023 MCH (RBC) [Entitic mass] 32.2 pg 24.7-34.3 [facility] MCHC Auto (RBC) [Mass/Vol]Or dered By: Rivera Lopez on 04-11-2023 MCHC (RBC) [Mass/Vol] 33.2 g/dL 32.0-35.0 [facility] MCV Auto (RBC) [Entitic vol] Ordered By: Rivera Lopez on 04-11-2023 MCV (RBC) [Entitic vol] 96.8 fL 80-100 [facility] Monocyte distribution width [Entitic volume] in Blood by AutomatedOrdered By: Rivera Lopez on 04-11-2023 Monocyte distribution width Auto (Bld) [Entitic vol] 17.01 % 0.00-20.00 [facility] Monocytes Auto (Bld) [#/Vol] Ordered By: Rivera Lopez on 04-11-2023 Monocytes (Bld) [#/Vol] 0.6 10*3/uL 0.0-0.8 [facility] Monocytes/100 WBC Auto (Bld) Ordered By: Rivera Lopez on 04-11-2023 Monocytes/100 WBC (Bld) 4.3 % . [facility] Neutrophils Auto (Bld) [#/Vo l]Ordered By: Rivera Lopez on 04-11-2023 Neutrophils (Bld) [#/Vol] 12.1 10*3/uL 1.8-7.7 [facility] Neutrophils/100 WBC Auto (Bl d)Ordered By: Rivera Lopez on 04-11-2023 Neutrophils/100 WBC (Bld) 87.2 % . [facility] Nitrite Test strip Ql (U)Ord ered By: Rivera Lopez on 04-11-2023 Nitrite Ql (U) Negative Negative [facility] No Panel InformationOrdered By: Rivera Lopez on 04-11-2023 Estimated GFR (CKD-EPI) > 60.0 mL/Min [facility] Creatinine Clearance (Chem 59.83 [facility] Nucleated erythrocytes [Pres ence] in Blood by Automated countOrdered By: Rivera Lopez on 04-11-2023 Nucleated RBC Auto Ql (Bld) 0.0 /100{WBC} 0-0.5 [facility] Partial Thromboplastin Timeo n 04-11-2023 aPTT Coag (Bld) [Time] 23.3 s Low 25.1-36.5 [facility] Comment on above: Result Comment: A he matocrit value greater than 55% may lead to inaccurate results in coagulation testing. Patients having hematocrit values >55% require a special collection tube for coagulation studies. Please contact the laboratory at [phone] for redraw instructions. PERFORMED BY: [place] [address] PATHOLOGIST [employer]ATIONAL TECH[employer] EDUCATION TE[employer]ER APULA RODRIGUES M.D. Performed By: #### H S TROP, CMP, CBC, LIPASE #### [address] Platelet mean volume Auto (B ld) [Entitic vol]Ordered By: Rivera Lopez on 04-11-2023 Platelet mean volume (Bld) [Entitic vol] 7.7 fL 6.3-10.7 [facility] Platelets Auto (Bld) [#/Vol] Ordered By: Rivera Lopez on 04-11-2023 Platelets (Bld) [#/Vol] 262 10*3/uL 150-450 [facility] Potassium [Moles/volume] in Serum or PlasmaOrdered By: Rivera Lopez on 04-11-2023 Potassium [Moles/Vol] 4.0 mmol/L 3.5-5.1 [facility] Protein Auto test strip (U) [Mass/Vol]Ordered By: Rivera Lopez on 04-11-2023 Protein (U) [Mass/Vol] Negative Negative [facility] Protein [Mass/volume] in Ser um or PlasmaOrdered By: Rivera Lopez on 04-11-2023 Protein [Mass/Vol] 6.9 g/dL 6.4-8.9 [facility] Prothrombin Time INRon 04-11 INR Coag (PPP) [Relative time] 1.0 {INR} Normal [facility] Comment on above: Result Comment: INR Therapeutic Range A) Pre- and Peroperative OAT started two weeks before surgery. NOT HIP SURGERY: 1.5 - 2.5 HIP SURGERY: 2 - 3 B) Primary and secondary prevention of venous THROMBOSIS: 2 - 3 C) Active venous thrombosis, pulmonary embolism and prevention of recurrent venous thrombosis: 2 - 3 D) Prevention of arterial thromboembolism including patients with mechanical heart valves: 3 - 4.5 Performed By: #### H S TROP, CMP, CBC, LIPASE #### [facility] [address] [place] [id number] [facility] PT Coag (PPP) [Time] 11.2 s Normal 9.0-12.9 [facility] Comment on above: Result Comment: A he matocrit value greater than 55% may lead to inaccurate results in coagulation testing. Patients having hematocrit values >55% require a special collection tube for coagulation studies. Please contact the laboratory at [phone] for redraw instructions. Performed By: #### H S TROP, CMP, CBC, LIPASE #### [facility] [address] [place] [id number] [facility] Prothrombin time (PT)Ordered By: Rivera Lopez on 04-11-2023 PT Coag (PPP) [Time] 11.2 s 9.0-12.9 [facility] Comment on above: A hematocrit value g reater than 55% may lead to inaccurate results in coagulation testing. Patients having hematocrit values >55% require a special collection tube for coagulation studies. Please contact the laboratory at [phone] for redraw instructions. RBC Auto (Bld) [#/Vol]Ordere d By: Rivera Lopez on 04-11-2023 RBC (Bld) [#/Vol] 4.27 10*6/uL 3.60-5.00 [facility] Serum or plasma albumin/glob ulin mass ratioOrdered By: Rivera Lopez on 04-11-2023 Albumin/Globulin [Mass ratio] 1.9 {ratio} [facility] Serum or plasma anion gap de terminationOrdered By: Rivera Lopez on 04-11-2023 Anion gap [Moles/Vol] 14.1 mmol/L 6.0-15.0 [facility] Serum or plasma non-glucuron idated bilirubin measurement (mass/volume)Ordered By: Rivera Lopez on 04-11-2023 Bilirubin.indirect [Mass/Vol] 0.3 mg/dL [facility] Sodium [Moles/volume] in Ser um or PlasmaOrdered By: Rivera Lopez on 04-11-2023 Sodium [Moles/Vol] 140 mmol/L 136-145 [facility] Specific gravity Auto test s trip (U) [Rel density]Ordered By: Rivera Lopez on 04-11-2023 Specific gravity (U) [Rel density] > 1.050 1.001-1.03 0 [facility] Squamous epithelial cells de tection in urine sediment by light microscopyOrdered By: Rivera Lopez on 04-11-2023 Epithelial cells.squamous LM Ql (Urine sed) 0-1 [HPF] 0-2 [facility] URN MACROSCOPIC NURon 2023 BILIRUBIN JERE Negative Normal NEG [facility] Comment on above: Performed By: #### C EZEQUIEL CMP, 3040-3, 45699-8, 60400-0, - 9 #### [facility] ([id number]) [address] [place] [address] BLOOD/HGB JERE Negative Normal NEG [facility] Comment on above: Performed By: #### C BCA CMP, 3040-3, 43912-2, 93349-1, - 9 #### [facility] ([id number]) [address] [place] [address] GLUCOSE JERE Negative Normal NEG [facility] Comment on above: Performed By: #### C BCA, CMP, 3040-3, 43165-1, 87473-4, 27705- 9 #### [facility] ([id number]) [address] [place] [address] [place] [address] KETONES JERE Negative Normal NEG [facility] Comment on above: Performed By: #### C BCA, CMP, 3040-3, 42975-8, 72296-6, 89127- 9 #### [facility] ([id number]) [address] [place] [address] LEUKOCYTE ESTERASE JERE Negative Normal NEG [facility] Comment on above: Performed By: #### C BCA, CMP, 3040-3, 78658-3, 07437-2, 78435- 9 #### [facility] ([id number]) [address] [place] [address] NITRITE JERE Negative Normal NEG [facility] Comment on above: Performed By: #### C BCA, CMP, 3040-3, 91019-6, 81576-1, 11039- 9 #### [facility] ([id number]) [address] [place] [address] PH JERE >=9.0 Normal 5.0-8.5 [facility] Comment on above: Performed By: #### C BCA, CMP, 3040-3, 66138-6, 55466-7, 65924- 9 #### [facility] ([id number]) [address] [place] [address] PROTEIN JERE Negative Normal NEG [facility] Comment on above: Performed By: #### C BCA, CMP, 3040-3, 57550-8, 92479-5, 49572- 9 #### [facility] ([id number]) [address] [place] [address] SPECIFIC GRAVITY JERE 1.015 Normal 1.003-[address] [place] [address] Comment on above: Performed By: #### C BCA, CMP, 3040-3, 27529-8, 77789-3, 52553- 9 #### [facility] ([id number]) [address] [place] [address] UROBILINOGEN JERE 0.2 eu/dL Normal <1.1 [facility] Comment on above: Performed By: #### C BCA, CMP, 3040-3, 63872-1, 43297-9, 78909- 9 #### [facility] ([id number]) [address] [place] [address], [place] [address] Urea nitrogen [Mass/volume] in Serum or PlasmaOrdered By: Rivera Lopez on 04-11-2023 Urea nitrogen [Mass/Vol] 5 mg/dL 09-30 [facility] Urine bacteria detection by automated methodOrdered By: Rivera Lopez on 04-11-2023 Bacteria Auto Ql (U) None seen None Seen [facility] Urine clarity by refractomet ry automatedOrdered By: Rivera Lopez on 04-11-2023 Clarity Refractometry automated (U) Turbid Clear [facility] Urine glucose measurement by automated test strip (mass/volume)Ordered By: Rivera Lopez on 04-11-2023 Glucose Auto test strip (U) [Mass/Vol] Normal mg/dL Normal [facility] Urine hemoglobin detection b y automated test stripOrdered By: Rivera Lopez on 04-11-2023 Hemoglobin Auto test strip Ql (U) Negative Negative [facility] Urine leukocyte esterase det ection by automated test stripOrdered By: Rivera Lopez on 04-11-2023 Leukocyte esterase Auto test strip Ql (U) Negative Negative [facility] Urobilinogen Auto test strip (U) [Mass/Vol]Ordered By: Rivera Lopez on 04-11-2023 Urobilinogen (U) [Mass/Vol] Normal mg/dL Normal [facility] WBC Auto (Bld) [#/Vol]Ordere d By: Rivera Lopez on 04-11-2023 WBC (Bld) [#/Vol] 13.9 10*3/uL 3.8-11.6 [facility] pH Auto test strip (U)Ordere d By: Rivera Lopez on 04-11-2023 pH (U) 8.0 [pH] 5.0-9.0 [facility] Alanine aminotransferase [En zymatic activity/volume] in Serum or PlasmaOrdered By: Nicole Posadas on 04-02-2023 ALT [Catalytic activity/Vol] 11 U/L 7 [facility] Albumin [Mass/volume] in Ser um or Plasma by Bromocresol green (BCG) dye binding methoOrdered By: Nicole Posadas on 04-02-2023 Albumin BCG dye [Mass/Vol] 4.2 g/dL 3.5-5.7 [facility] Alkaline phosphatase [Enzyma tic activity/volume] in Serum or PlasmaOrdered By: Nicole Posadas on 04-02-2023 ALP [Catalytic activity/Vol] 101 U/L 34-104 [facility] Aspartate aminotransferase [ Enzymatic activity/volume] in Serum or PlasmaOrdered By: Nicole Posadas on 04-02-2023 AST [Catalytic activity/Vol] 21 U/L 13-39 [facility] Automated urine color determ inationOrdered By: Nicole Posadas on 04-02-2023 Color (U) Yellow Normal Yellow [facility] Comment on above: Order Comment: Name Collection Type:: Clean-Voided Midstream Performed By: #### U A #### [address] Basophils Auto (Bld) [#/Vol] Ordered By: Nicole Posadas on 04-02-2023 Basophils (Bld) [#/Vol] 0.0 10*3/uL 0.0-0.2 [facility] Basophils/100 WBC Auto (Bld) Or[facility]: [facility] Basophils/100 WBC (Bld) 0.2 % . [facility] Bilirubin Test strip Ql (U)O rdered By: Nicole Posadas on 04-02-2023 Bilirubin Ql (U) Negative Negative [facility] Bilirubin.total [Mass/volume ] in Serum or PlasmaOrdered By: Nicole Posadas on 04-02-2023 Bilirubin [Mass/Vol] 0.3 mg/dL 0.3-1.[address] [facility] [address] abdomen pelvis w conon CT abdomen pelvis w con [facility] [place] [address] CT Scan Report Signed Patient: Chioma Arciniega MR#: [id number] : 1970 Acct:[id number] Age/Sex: 52 / F ADM Date: 04/02/23 Loc: ER Room: Type: [facility] ER Attending Dr: Copies to: Nicole Posadas APRN Ordering Provider: Nicole oPsadas APRN Date of Service: 04/02/23 CT/CT abdomen [...] unremarkable. Uterus not visualized. No adnexal mass.] Peritoneum/Retroperitoneu m:No free air, free fluid or lymphadenopathy.[ Abd [...] Paredes Jr., D.O.04/02/2023 6:15 PM Dictation Location: [place] [address] Transcribed By: RICA 04/02/231814 Dictated By: Eyal aPredes Jr, DO 04/02/23 180 Signed By: 04/02/231814 [facility] Calcium [Mass/volume] in Ser um or PlasmaOrdered By: Nicole Posadas on 04-02-2023 Calcium [Mass/Vol] 9.7 mg/dL 8.6-10.3 [facility] Carbon dioxide, total [Moles /volume] in Serum or PlasmaOrdered By: Nicole Posadas on 04-02-2023 CO2 [Moles/Vol] 26.3 mmol/L 21.0-31.0 [facility] Chloride [Moles/volume] in S erika or PlasmaOrdered By: Nicole Posadas on 04-02-2023 Chloride [Moles/Vol] 106 mmol/L 98-107 [facility] Complete Blood Count Auto Di ffon 04-02-2023 Basophils (Bld) [#/Vol] 0.0 10*3/uL Normal 0.0-0.2 [facility] Comment on above: Result Comment: PERF ORMED BY: [place] [address] PATHOLOGIST VOCATIONAL TECH[employer]ICAL EDUCATION TEACHER PAULA RODRIGUES M.D. Performed By: #### H S TROP, CMP, CBC, LIPASE #### [facility] [address] [place] [address] [place] Basophils/100 WBC (Bld) 0.2 % Normal . [facility] Comment on above: Performed By: #### H S TROP, CMP, CBC, LIPASE #### [facility] [address] [place] [address] [place] Eosinophils (Bld) [#/Vol] 0.1 10*3/uL Normal 0.0-0.45 [facility] Comment on above: Performed By: #### H S TROP, CMP, CBC, LIPASE #### [facility] [address] [place] [address] [place] Eosinophils/100 WBC (Bld) 1.7 % Normal . [facility] Comment on above: Performed By: #### H S TROP, CMP, CBC, LIPASE #### [facility] [address] [place] [address] [place] Erythrocyte distribution width (RBC) [Ratio] 13.3 % Normal 11.9-15.3 [facility] Comment on above: Performed By: #### H S TROP, CMP, CBC, LIPASE #### [address] Hematocrit (Bld) [Volume fraction] 41.8 % Normal 34.0-46.4 [facility] Comment on above: Performed By: #### H S TROP, CMP, CBC, LIPASE #### [address] Hemoglobin (Bld) [Mass/Vol] 14.2 g/dL Normal 11.8-15.4 [facility] Comment on above: Performed By: #### H S TROP, CMP, CBC, LIPASE #### [address] Lymphocytes (Bld) [#/Vol] 1.8 10*3/uL Normal 1.00-4.8 [facility] Comment on above: Performed By: #### H S TROP, CMP, CBC, LIPASE #### [address] Lymphocytes/100 WBC (Bld) 29.2 % Normal . [facility] Comment on above: Performed By: #### H S TROP, CMP, CBC, LIPASE #### [address] MCH (RBC) [Entitic mass] 33.1 pg Normal 24.7-34.3 [facility] Comment on above: Performed By: #### H S TROP, CMP, CBC, LIPASE #### [address] MCV (RBC) [Entitic vol] 97.4 fL Normal 80-100 [facility] Comment on above: Performed By: #### H S TROP, CMP, CBC, LIPASE #### [address] Mean Corpuscular HGB Conc 34.0 g/dL Normal 32.0-35.0 [facility] Comment on above: Performed By: #### H S TROP, CMP, CBC, LIPASE #### [address] Monocytes (Bld) [#/Vol] 0.6 10*3/uL Normal 0.0-0.8 [facility] Comment on above: Performed By: #### H S TROP, CMP, CBC, LIPASE #### [address] Monocytes/100 WBC (Bld) 17.36 % Normal 0.00-20.00 [facility] Comment on above: Performed By: #### H S TROP, CMP, CBC, LIPASE #### [address] Monocytes/100 WBC (Bld) 9.8 % Normal . [facility] Comment on above: Performed By: #### H S TROP, CMP, CBC, LIPASE #### [address] Neutrophils (Bld) [#/Vol] 3.6 10*3/uL Normal 1.8-7.7 [facility] Comment on above: Performed By: #### H S TROP, CMP, CBC, LIPASE #### [address] Neutrophils/100 WBC (Bld) 59.1 % Normal . [facility] Comment on above: Performed By: #### H S TROP, CMP, CBC, LIPASE #### [address] NRBC% 0.1 /100{WBC} Normal 0-0.5 [facility] Comment on above: Performed By: #### H S TROP, CMP, CBC, LIPASE #### [address] Platelet mean volume (Bld) [Entitic vol] 8.3 fL Normal 6.3-10.7 [facility] Comment on above: Performed By: #### H S TROP, CMP, CBC, LIPASE #### [place] [address] [place] Platelets (Bld) [#/Vol] 236 10*3/uL Normal 150-450 [facility] Comment on above: Performed By: #### H S TROP, CMP, CBC, LIPASE #### [facility] [address] RBC (Bld) [#/Vol] 4.29 10*6/uL Normal 3.60-5.00 [facility] Comment on above: Performed By: #### H S TROP, CMP, CBC, LIPASE #### [address] WBC (Bld) [#/Vol] 6.2 10*3/uL Normal 3.8-11.6 [facility] Comment on above: Performed By: #### H S TROP, CMP, CBC, LIPASE #### [address] Comprehensive Metabolic Pane nimesh 04-02-2023 Albumin [Mass/Vol] 4.2 g/dL Normal 3.5-5.7 [facility] Comment on above: Performed By: #### H S TROP, CMP, CBC, LIPASE #### [address] Albumin/Globulin [Mass ratio] 1.8 {ratio} Normal [facility] Comment on above: Performed By: #### H S TROP, CMP, CBC, LIPASE #### [address] ALP [Catalytic activity/Vol] 101 U/L Normal 34-104 [facility] Comment on above: Performed By: #### H S TROP, CMP, CBC, LIPASE #### [address] ALT [Catalytic activity/Vol] 11 U/L Normal 7-52 [facility] Comment on above: Performed By: #### H S TROP, CMP, CBC, LIPASE #### [address] Anion gap [Moles/Vol] Not performed Normal 6.0-15.0 [facility] Comment on above: Performed By: #### H S TROP, CMP, CBC, LIPASE #### [address] AST [Catalytic activity/Vol] 21 U/L Normal 13-39 [facility] Comment on above: Performed By: #### H S TROP, CMP, CBC, LIPASE #### [address] Bilirubin [Mass/Vol] 0.3 mg/dL Normal 0.3-1.0 [facility] Comment on above: Performed By: #### H S TROP, CMP, CBC, LIPASE #### [address] Calcium [Mass/Vol] 9.7 mg/dL Normal 8.6-10.3 [facility] Comment on above: Performed By: #### H S TROP, CMP, CBC, LIPASE #### [address] Chloride [Moles/Vol] 106 mmol/L Normal 98-107 [facility] Comment on above: Performed By: #### H S TROP, CMP, CBC, LIPASE #### [address] CO2 [Moles/Vol] 26.3 mmol/L Normal 21.0-31.0 [facility] Comment on above: Performed By: #### H S TROP, CMP, CBC, LIPASE #### [address] Creatinine [Mass/Vol] 0.82 mg/dL Normal 0.60-1.20 [facility] Comment on above: Performed By: #### H S TROP, CMP, CBC, LIPASE #### [address] Creatinine Clr Calc Pharmacy 62.75 [facility] Comment on above: Performed By: #### H S TROP, CMP, CBC, LIPASE #### [address] GFR/1.73 sq M.predicted MDRD (S/P/Bld) [Vol rate/Area] mL/min/{1.73_m2} [facility] Comment on above: Performed By: #### H S TROP, CMP, CBC, LIPASE #### [facility] [address] Globulin (S) [Mass/Vol] 2.4 g/dL Normal [facility] Comment on above: Performed By: #### H S TROP, CMP, CBC, LIPASE #### [facility] [address] Glucose [Mass/Vol] 90 mg/dL Normal 70-100 [facility] Comment on above: Result Comment: [facility] Glucose Reference Range is dependent on time and content of last meal. Glucose of more than 200 mg/dL in a nonstressed, ambulatory subject supports the diagnosis of Diabetes Mellitus. ADA recommended reference range Performed By: #### H S TROP, CMP, CBC, LIPASE #### [facility] [address] Potassium Normal 3.5-5.1 [facility] Comment on above: Result Comment: Spec imen hemolyzed, redraw requested Performed By: #### H S TROP, CMP, CBC, LIPASE #### [facility] [address] Protein [Mass/Vol] 6.6 g/dL Normal 6.4-8.9 [facility] Comment on above: Performed By: #### H S TROP, CMP, CBC, LIPASE #### [address] Sodium [Moles/Vol] 137 mmol/L Normal 136-145 [facility] Comment on above: Performed By: #### H S TROP, CMP, CBC, LIPASE #### [facility] [address] [place] [address] [place] Urea nitrogen [Mass/Vol] 7 mg/dL Normal 7-25 [facility] Comment on above: Performed By: #### H S TROP, CMP, CBC, LIPASE #### [facility] [address] [place] [address] [place] Creatinine [Mass/volume] in Serum or PlasmaOrdered By: Nicole Posadas on 04-02-2023 Creatinine [Mass/Vol] 0.82 mg/dL 0.60-1.20 [facility] D-Dimer High Sensitivityon 0 04-02-2023 D-Dimer High Sensitivity < 200 Normal 0-243 [facility] Comment on above: Result Comment: The reference [...] coagulation studies. Please contact the laboratory at [phone] for redraw instructions. PERFORMED BY: [place] [address] PATHOLOGIST [employer]OCATIONAL TECHNICAL EDUCATION TEACHER PAULA RODRIGUES M.D. Performed By: #### H S TROP, CMP, CBC, LIPASE #### [address] ECG 12 lead ECGon 04-02-2023 ECG 12 lead ECG [facility] Main [place] [address] [place] [address] Electrocardiograph Report Signed Patient: Chioma Arciniega MR#: [id number] : 1970 Acct:[id number] Age/Sex: 52 / F ADM Date: 04/02/23 Loc: ER Room: Type: [facility] ER Attending Dr: Ordering Provider: Nicole [...] By Xiang Kellogg MD 04/02/23 1527 Normal [facility] Eosinophils Auto (Bld) [#/Vo l]Ordered By: Nicole Posadas on 04-02-2023 Eosinophils (Bld) [#/Vol] 0.1 10*3/uL 0.0-0.45 [facility] Eosinophils/100 WBC Auto (Bl d)Ordered By: Nicolecarito Posadas on 04-02-2023 Eosinophils/100 WBC (Bld) 1.7 % . [facility] Erythrocyte distribution wid th Auto (RBC) [Ratio]Ordered By: Nicole Posadas on 04-02-2023 Erythrocyte distribution width (RBC) [Ratio] 13.3 % 11.9-15.3 [facility] Fibrin D-dimer [Presence] in Platelet poor plasma by Latex agglutinationOrdered By: Nicole Posadas on 04-02-2023 Fibrin D-dimer LA Ql (PPP) < 200 ng/mL 0-243 [facility] Comment on above: The reference range [...] coagulation studies. Please contact the laboratory at [phone] for redraw instructions. Globulin Calc (S) [Mass/Vol] Ordered By: Nicole Posadas on 04-02-2023 Globulin (S) [Mass/Vol] 2.4 g/dL [facility] Glucose [Mass/volume] in Ser um or PlasmaOrdered By: Nicole Posadas on 04-02-2023 Glucose [Mass/Vol] 90 mg/dL 70-100 [facility] Comment on above: ADA recommended refe rence rangeRandom Glucose Reference Range is dependent on time and content of last meal. Glucose of more than 200 mg/dL in a nonstressed, ambulatory subject supports the diagnosis of Diabetes Mellitus. Hematocrit Auto (Bld) [Volum e fraction]Ordered By: Nicole Posadas on 04-02-2023 Hematocrit (Bld) [Volume fraction] 41.8 % 34.0-46.4 [facility] Hemoglobin [Mass/volume] in BloodOrdered By: Nicole Posadas on 04-02-2023 Hemoglobin (Bld) [Mass/Vol] 14.2 g/dL 11.8-15.4 [facility] Ketones Auto test strip (U) [Mass/Vol]Ordered By: Nicole Posadas on 04-02-2023 Ketones (U) [Mass/Vol] Negative Negative [facility] Leukocytes [#/volume] correc aurelia for nucleated erythrocytes in Blood by Automated counOrdered By: Nicole Posadas on 04-02-2023 WBC corrected for nucl RBC Auto (Bld) [#/Vol] 6.2 10*3/uL 3.8-11.6 [facility] Lipaseon 04-02-2023 Lipase [Catalytic activity/Vol] 186.0 U/L High 11.0-82.0 [facility] Comment on above: Result Comment: PERF ORMED BY: [place] [address] PATHOLOGIST [employer]OCATIONAL TECH[employer] EDUCATION TEACHER PAULA RODRIGUES M.D. Performed By: #### H S TROP, CMP, CBC, LIPASE #### [address] Lipase [Enzymatic activity/v olume] in Serum or PlasmaOrdered By: Nicole Posadas on 04-02-2023 Lipase [Catalytic activity/Vol] 186.0 U/L 11.0-82.0 [facility] Lymphocytes Auto (Bld) [#/Vo l]Ordered By: Nicole Posadas on 04-02-2023 Lymphocytes (Bld) [#/Vol] 1.8 10*3/uL 1.00-4.8 [facility] Lymphocytes/100 WBC Auto (Bl d)Ordered By: Nicole Posadas on 04-02-2023 Lymphocytes/100 WBC (Bld) 29.2 % . [facility] MCH Auto (RBC) [Entitic mass ]Ordered By: Nicole Posadas on 04-02-2023 MCH (RBC) [Entitic mass] 33.1 pg 24.7-34.3 [facility] MCHC Auto (RBC) [Mass/Vol]Or dered By: Nicole Posadas on 04-02-2023 MCHC (RBC) [Mass/Vol] 34.0 g/dL 32.0-35.0 [facility] MCV Auto (RBC) [Entitic vol] Ordered By: Nicole Posadas on 04-02-2023 MCV (RBC) [Entitic vol] 97.4 fL 80-100 [facility] Monocyte distribution width [Entitic volume] in Blood by AutomatedOrdered By: Nicole Posadas on 04-02-2023 Monocyte distribution width Auto (Bld) [Entitic vol] 17.36 % 0.00-20.00 [facility] Monocytes Auto (Bld) [#/Vol] Ordered By: Nicole Posadas on 04-02-2023 Monocytes (Bld) [#/Vol] 0.6 10*3/uL 0.0-0.8 [facility] Monocytes/100 WBC Auto (Bld) Ordered By: Nicole Posadas on 04-02-2023 Monocytes/100 WBC (Bld) 9.8 % . [facility] Neutrophils Auto (Bld) [#/Vo l]Ordered By: Nicole Posadas on 04-02-2023 Neutrophils (Bld) [#/Vol] 3.6 10*3/uL 1.8-7.7 [facility] Neutrophils/100 WBC Auto (Bl d)Ordered By: Nicole Posadas on 04-02-2023 Neutrophils/100 WBC (Bld) 59.1 % . [facility] Nitrite Test strip Ql (U)Ord ered By: Nicole Posadas on 04-02-2023 Nitrite Ql (U) Negative Negative [facility] No Panel InformationOrdered By: Nicole Posadas on 04-02-2023 Estimated GFR (CKD-EPI) > 60.0 mL/Min [facility] Pharmacy Creatinine Clearance (Chem 62.75 [facility] Nucleated erythrocytes [Pres ence] in Blood by Automated countOrdered By: Nicole Posadas on 04-02-2023 Nucleated RBC Auto Ql (Bld) 0.1 /100{WBC} 0-0.5 [facility] Platelet mean volume Auto (B ld) [Entitic vol]Ordered By: Nicole Posadas on 04-02-2023 Platelet mean volume (Bld) [Entitic vol] 8.3 fL 6.3-10.7 [facility] Platelets Auto (Bld) [#/Vol] Ordered By: Nicole Posadas on 04-02-2023 Platelets (Bld) [#/Vol] 236 10*3/uL 150-450 [facility] Potassium [Moles/volume] in Serum or PlasmaOrdered By: Nicole Posadas on 04-02-2023 Potassium [Moles/Vol] 4.3 mmol/L 3.5-5.1 [facility] Protein Auto test strip (U) [Mass/Vol]Ordered By: Nicole Posadas on 04-02-2023 Protein (U) [Mass/Vol] Negative Negative [facility] Protein [Mass/volume] in Ser um or PlasmaOrdered By: Nicole Posadas on 04-02-2023 Protein [Mass/Vol] 6.6 g/dL 6.4-8.9 [facility] RBC Auto (Bld) [#/Vol]Ordere d By: Nicole Posadas on 04-02-2023 RBC (Bld) [#/Vol] 4.29 10*6/uL 3.60-5.00 [facility] Redraw Potassiumon Potassium [Moles/Vol] 4.3 mmol/L Normal 3.5-5.1 [facility] Comment on above: Result Comment: PERF ORMED BY: [place] [address] PATHOLOGIST VOCATIONAL TECHNICAL EDUCATION TEACHER PAULA RODRIGUES M.D. Performed By: #### R LESLY Harris #### [place] [id number] [facility] Serum or plasma albumin/glob ulin mass ratioOrdered By: Nicole Posadas on 04-02-2023 Albumin/Globulin [Mass ratio] 1.8 {ratio} [facility] Serum or plasma anion gap de terminationOrdered By: Nicole Poasdas on 04-02-2023 Anion gap [Moles/Vol] TNP [facility] Comment on above: Test not performed Sodium [Moles/volume] in Ser um or PlasmaOrdered By: Nicole Posadas on 04-02-2023 Sodium [Moles/Vol] 137 mmol/L 136-145 [facility] Specific gravity Auto test s trip (U) [Rel density]Ordered By: Nicole Posadas on 04-02-2023 Specific gravity (U) [Rel density] 1.022 1.001-1.03 0 [facility] Troponin I High Sensitivityo n 04-02-2023 Troponin I High Sensitivity 2.6 pg/mL Normal 0.0-15.0 [facility] Comment on above: Result Comment: PERF ORMED BY: [place] [address] PATHOLOGIST VOCATIONAL TECHNICAL EDUCATION TEACHER PAULA RODRIGUES M.D. Performed By: #### H S TROP, CMP, CBC, LIPASE #### [facility] [address] [place], [place] [id number] [facility] Troponin I.cardiac [Mass/vol ume] in Serum or Plasma by Detection limit <= 0.01 ng/Ordered By: Nicole Posadas on 04-02-2023 Troponin I.cardiac DL <= 0.01 ng/mL [Mass/Vol] 2.6 pg/mL 0.0-15.0 [facility] Urea nitrogen [Mass/volume] in Serum or PlasmaOrdered By: Nicole Posadas on 04-02-2023 Urea nitrogen [Mass/Vol] 7 mg/dL 09-30 [facility] Urinalysison 04-02-2023 Appearance (U) Clear Normal Clear [facility] Comment on above: Order Comment: Name Collection Type:: Clean-Voided Midstream Performed By: #### U A #### [facility] [address] [place] [address] [place] Bilirubin,Urine Negative Normal Negative [facility] Comment on above: Order Comment: Name Collection Type:: Clean-Voided Midstream Performed By: #### U A #### [place] [address] [place] Glucose Ql (U) Normal Normal Normal [facility] Comment on above: Order Comment: Name Collection Type:: Clean-Voided Midstream Performed By: #### U A #### [place] [address] [place] Ketones Ql (U) Negative Normal Negative [facility] Comment on above: Order Comment: Name Collection Type:: Clean-Voided Midstream Performed By: #### U A #### [facility] [address] [place] [address] [place] Leukocyte esterase Test strip Ql (U) Negative Normal Negative [facility] Comment on above: Order Comment: Name Collection Type:: Clean-Voided Midstream Performed By: #### U A #### [facility] [address] [place] [address] [place] Nitrite,Urine Negative Normal Negative [facility] Comment on above: Order Comment: Name Collection Type:: Clean-Voided Midstream Performed By: #### U A #### [facility] [address] [place] [address] [place] Occult Blood,Urine Negative Normal Negative [facility] Comment on above: Order Comment: Name Collection Type:: Clean-Voided Midstream Result Comment: PERF ORMED BY: [place] [address] PATHOLOGIST VOCATIONAL TECHNICAL EDUCATION TEACHER PAULA RODRIGUES M.D. Performed By: #### U A #### [place] [address] [place] Protein,Urine Negative Normal Negative [facility] Comment on above: Order Comment: Name Collection Type:: Clean-Voided Midstream Performed By: #### U A #### [facility] [address] Specificy [place],Urine 1.022 Normal 1.001-1.03 0 [facility] Comment on above: Order Comment: Name Collection Type:: Clean-Voided Midstream Performed By: #### U A #### [address] Urobilinogen,Urine Normal Normal Normal [facility] Comment on above: Order Comment: Name Collection Type:: Clean-Voided Midstream Performed By: #### U A #### [address] Urine clarity by refractomet ry automatedOrdered By: Nicole Posadas on 04-02-2023 Clarity Refractometry automated (U) Clear Clear [facility] Urine glucose measurement by automated test strip (mass/volume)Ordered By: Nicole Posadas on 04-02-2023 Glucose Auto test strip (U) [Mass/Vol] Normal mg/dL Normal [facility] Urine hemoglobin detection b y automated test stripOrdered By: Nicole Posadas on 04-02-2023 Hemoglobin Auto test strip Ql (U) Negative Negative [facility] Urine leukocyte esterase det ection by automated test stripOrdered By: Nicole Posadas on 04-02-2023 Leukocyte esterase Auto test strip Ql (U) Negative Negative [facility] Urine pH measurement by auto mated test stripOrdered By: Nicole Posadas on 04-02-2023 pH (U) 5.5 [pH] Normal 5.0-9.0 [facility] Comment on above: Order Comment: Name Collection Type:: Clean-Voided Midstream Performed By: #### U A #### [address] Urobilinogen Auto test strip (U) [Mass/Vol]Ordered By: Nicole Posadas on 04-02-2023 Urobilinogen (U) [Mass/Vol] Normal mg/dL Normal [facility] WBC Auto (Bld) [#/Vol]Ordere d By: Nicole Jjanand on 04-02-2023 WBC (Bld) [#/Vol] 6.2 10*3/uL 3.8-11.6 [facility] CBC AND AUTO DIFFon 03-27-19 24 ABSOLUTE BASOPHIL 0.1 X10E9/L Normal 0.0-0.2 [facility] Comment on above: Performed By: #### C BCA, CMP, 3040-3, 40462-6, 20633-9, 38296- 9 #### [facility] ([id number]) [address] [place] [address] ABSOLUTE NEUTROPHIL 7.2 X10E9/L High 1.5-6.6 [facility] Comment on above: Performed By: #### C BCA, CMP, 3040-3, 52468-6, 30299-3, 04009- 9 #### [facility] ([id number]) [address] [place] [address] 28225 Basophils/100 WBC (Bld) 0.6 % Normal [facility] Comment on above: Performed By: #### C BCA, CMP, 3040-3, 86184-9, 36738-8, - 9 #### [facility] ([id number]) [address] [place] [address]100 Eosinophils (Bld) [#/Vol] 0.0 10*3/uL Normal 0.0-0.4 [facility] Comment on above: Performed By: #### C BCA, CMP, 3040-3, 11416-9, 09006-3, 93265- 9 #### [facility] ([id number]) [address] [place] [address] 10356 Eosinophils/100 WBC (Bld) 0.1 % Normal [facility] Comment on above: Performed By: #### C BCA, CMP, 3040-3, 69552-9, 12615-7, 58175- 9 #### [facility] ([id number]) [address] [place] [address]1265 Erythrocyte distribution width (RBC) [Ratio] 13.7 % Normal 11.5-15.0 [facility] Comment on above: Performed By: #### C BCA, CMP, 3040-3, 89659-7, 58940-8, 25166- 9 #### [facility] ([id number]) [address] [place] [address]114 Hematocrit (Bld) [Volume fraction] 40.4 % Normal 35-47 [facility] Comment on above: Performed By: #### C BCA, CMP, 3040-3, 48520-4, 95205-5, 78841- 9 #### [facility] ([id number]) [address] [place] [address]12 Hemoglobin (Bld) [Mass/Vol] 13.8 g/dL Normal 11.7-15.5 [facility] Comment on above: Performed By: #### C BCA, CMP, 3040-3, 10349-4, 64111-2, 71122- 9 #### [facility] ([id number]) [address] [place] [address] Lymphocytes (Bld) [#/Vol] 1.7 10*3/uL Normal 1.0-3.5 [facility] Comment on above: Performed By: #### C BCA, CMP, 3040-3, 35306-1, 52441-6, 68054- 9 #### [facility] ([id number]) [address] [place] [address] 21016 Lymphocytes/100 WBC (Bld) 17.8 % Normal [facility] Comment on above: Performed By: #### Clara BCA, CMP, 3040-3, 94995-3, 81980-4, 21002- 9 #### [facility] ([id number]) [address] [place] [address] [place] [address] MCH (RBC) [Entitic mass] 33.0 pg Normal 27-34 [facility] Comment on above: Performed By: #### C BCA, CMP, 3040-3, 37573-9, 22758-4, - #### [facility] ([id number]) [address] [place] [address]2579 MCHC (RBC) [Mass/Vol] 34.1 g/dL Normal 32-36 [facility] Comment on above: Performed By: #### C BCA, CMP, 3040-3, 16997-9, 97017-2, - 9 #### [facility] ([id number]) [address] [place] [address] 30121 MCV (RBC) [Entitic vol] 97 fL Normal 80-100 [facility] Comment on above: Performed By: #### C BCA, CMP, 3040-3, 60726-0, 16466-2, - 9 #### [facility] ([id number]) [address] [place] [address] 76304 Monocytes (Bld) [#/Vol] 0.8 10*3/uL Normal 0-0.9 [facility] Comment on above: Performed By: #### C BCA, CMP, 3040-3, 40823-0, 77413-0, - 9 #### [facility] ([id number]) [address] [place] [address] 88463 Monocytes/100 WBC (Bld) 7.8 % Normal [facility] Comment on above: Performed By: #### C BCA, CMP, 3040-3, 02574-5, 65544-4, - 9 #### [facility] ([id number]) [address] [place] [address] 25491 Neutrophils/100 WBC (Bld) 73.7 % Normal [facility] Comment on above: Performed By: #### C BCA, CMP, 3040-3, 06616-1, 88092-5, 69427- 9 #### [facility] ([id number]) [address] [place] [address] 65161 Platelet mean volume (Bld) [Entitic vol] 7.6 fL Normal 7-12 [facility] Comment on above: Performed By: #### C BCA, CMP, 3040-3, 66640-2, 27575-5, 74390- 9 #### [facility] ([id number]) [address] [place] [address] 98513 Platelets (Bld) [#/Vol] 269 10*3/uL Normal 150-450 [facility] Comment on above: Performed By: #### C BCA, CMP, 3040-3, 46582-3, 73874-5, 17800- 9 #### [facility] ([id number]) [address] [place] [address] 59275 RBC COUNT 4.17 X10E12/L Normal 3.80-5.20 [facility] Comment on above: Performed By: #### C BCA, CMP, 3040-3, 89079-6, 18359-1, 25025- 9 #### [facility] ([id number]) [address] [place] [address] 09694 WBC (Bld) [#/Vol] 9.8 10*3/uL Normal 4.0-11.0 [facility] Comment on above: Performed By: #### C BCA, CMP, 3040-3, 09079-0, 88649-4, 33348- 9 #### [facility] ([id number]) [address] [place] [address] 55904 COMPREHENSIVE METABOLIC PANE Nimesh 03-27-2023 Albumin [Mass/Vol] 4.6 g/dL Normal 3.2-5.3 [facility] Comment on above: Performed By: #### C BCA, CMP, 3040-3, 32382-3, 37166-0, 03944- 9 #### [facility] ([id number]) [address] [place] [address] 96144 ALP [Catalytic activity/Vol] 125 U/L Normal 39-130 [facility] Comment on above: Performed By: #### C BCA, CMP, 3040-3, 11039-4, 84362-3, 76643- 9 #### [facility] ([id number]) [address] [place] [address] 94123 ALT [Catalytic activity/Vol] 17 U/L Normal 0-31 [facility] Comment on above: Performed By: #### C BCA, CMP, 3040-3, 97320-8, 04477-9, 88826- 9 #### [facility] ([id number]) [address] [place] [address] 19374 Anion gap [Moles/Vol] 10 mmol/L Normal 5-15 [facility] Comment on above: Performed By: #### C BCA, CMP, 3040-3, 94293-7, 72046-4, 28082- 9 #### [facility] ([id number]) [address] [place] [address] 66079 AST [Catalytic activity/Vol] 27 U/L Normal 0-41 [facility] Comment on above: Performed By: #### C BCA, CMP, 3040-3, 17486-4, 84086-4, 47157- 9 #### [facility] ([id number]) [address] [place] [address] 63635 Bilirubin [Mass/Vol] 0.4 mg/dL Normal 0.3-1.2 [facility] Comment on above: Performed By: #### C BCA, CMP, 3040-3, 09863-3, 50894-7, 16598- 9 #### [facility] ([id number]) [address] [place] [address] 42656 Calcium [Mass/Vol] 10.4 mg/dL Normal 8.5-10.5 [facility] Comment on above: Performed By: #### C BCA, CMP, 3040-3, 84163-9, 74019-7, 07247- 9 #### [facility] ([id number]) [address] [place] [address] 03350 Chloride [Moles/Vol] 103 mmol/L Normal 98-109 [facility] Comment on above: Performed By: #### C BCA, CMP, 3040-3, 98729-4, 21176-0, 34907- 9 #### [facility] ([id number]) [address] [place] [address] 22280 CO2 [Moles/Vol] 25 mmol/L Normal 22-32 [facility] Comment on above: Performed By: #### C BCA, CMP, 3040-3, 09007-5, 85903-0, 83247- 9 #### [facility] ([id number]) [address] [place] [address] 00155 Creatinine [Mass/Vol] 0.96 mg/dL Normal 0.40-1.00 [facility] Comment on above: Result Comment: METH OD TRACEABLE TO IDMS STANDARD Performed By: #### C BCA, CMP, 3040-3, 49161-7, 06830-0, 10207-1 #### [facility] ([id number]) [address] [place] [address] 17093 GFR/1.73 sq M.predicted among non-blacks MDRD (S/P/Bld) [Vol rate/Area] 71 mL/min/{1.73_m2} Normal >59 [facility] Comment on above: Result Comment: Reported eGFR is based on the CKD-EPI 2020 equation that does not use a race coefficient. Performed By: #### C BCA, CMP, 3040-3, 60024-8, 38852-9, 56665-2 #### [facility] ([id number]) [address] [place] [address] 48018 Glucose [Mass/Vol] 97 mg/dL Normal 65-99 [facility] Comment on above: Performed By: #### C BCA, CMP, 3040-3, 36408-7, 17946-5, 71595- 9 #### [facility] ([id number]) [address] [place] [id number] Potassium [Moles/Vol] 4.2 mmol/L Normal 3.5-5.0 [facility] Comment on above: Performed By: #### C BCA, CMP, 3040-3, 81738-8, 74333-1, 04354- 9 #### [facility] ([id number]) [address] [place] [address] Protein [Mass/Vol] 7.4 g/dL Normal 6.0-8.0 [facility] Comment on above: Performed By: #### C BCA, CMP, 3040-3, 73586-7, 56349-4, 12890- 9 #### [facility] ([id number]) [address] [place] [address] Sodium [Moles/Vol] 138 mmol/L Normal 134-146 [facility] Comment on above: Performed By: #### C BCA, CMP, 3040-3, 66097-1, 89543-4, 43491- 9 #### [facility] ([id number]) [address] [place] [address] Urea nitrogen [Mass/Vol] 14 mg/dL Normal 5-23 [facility] Comment on above: Performed By: #### C BCA, CMP, 3040-3, 49888-1, 53478-7, 15467- 9 #### [facility] ([id number]) [address] [place] [address] ABDOMEN AND PELVIS W CONT on [...] Flower MD on 03/27/2023 12:[address] [facility] LIPASEon 03-27-2023 Lipase [Catalytic activity/Vol] 31 U/L Normal 17-40 [facility] Comment on above: Performed By: #### C BCA, CMP, 3040-3, 80060-3, 29947-1, 67456- 9 #### [facility] ([id number]) [address] [place] [address], [place] [address] Lactate (P richard) [Moles/Vol]o n 03-27-2023 LACTATE W/REFLEX 1.2 mmol/L Normal 0.4-2.0 [facility] Comment on above: Result Comment: Result did not trigger repeat Lactate, re-order if needed. Performed By: #### C BCA, CMP, 3040-3, 27028-1, 47207-0, 08194-7 #### [facility] ([id number]) [address] [place] [address] MAGNESIUMon 03-27-2023 Magnesium [Mass/Vol] 2.0 mg/dL Normal 1.8-2.6 [facility] Comment on above: Performed By: #### C BCA, CMP, 3040-3, 25904-5, 42798-1, - 9 #### [facility] ([id number]) [address] [place] [address] TROPONIN Ion 03-27-2023 Troponin I.cardiac [Mass/Vol] ng/mL Normal 0.00-0.04 [facility] Comment on above: Performed By: #### C BCA, CMP, 3040-3, 31791-7, 81721-7, - 9 #### [facility] ([id number]) [address] [place] [address] Alanine aminotransferase [En zymatic activity/volume] in Serum or PlasmaOrdered By: Nicole Posadas on 11-09-2022 ALT [Catalytic activity/Vol] 12 U/L 7-52 [facility] Albumin [Mass/volume] in Ser um or Plasma by Bromocresol green (BCG) dye binding methoOrdered By: Nicole Posadas on 11-09-2022 Albumin BCG dye [Mass/Vol] 4.4 g/dL 3.5-5.7 [facility] Alkaline phosphatase [Enzyma tic activity/volume] in Serum or PlasmaOrdered By: Nicole Posadas on 11-09-2022 ALP [Catalytic activity/Vol] 126 U/L 34-104 [facility] Aspartate aminotransferase [ Enzymatic activity/volume] in Serum or PlasmaOrdered By: Nicole Posadas on 09-03-2023 AST [Catalytic activity/Vol] 17 U/L 13-39 [facility] Basophils Auto (Bld) [#/Vol] Ordered By: Nicole Posadas on 11-09-2022 Basophils (Bld) [#/Vol] 0.1 10*3/uL 0.0-0.2 [facility] Basophils/100 WBC Auto (Bld) Ordered By: Nicole Posadas on 11-09-2022 Basophils/100 WBC (Bld) 0.9 % . [facility] Bilirubin Test strip Ql (U)O rdered By: Nicole Posadas on 11-09-2022 Bilirubin Ql (U) Negative Negative [facility] Bilirubin.total [Mass/volume ] in Serum or PlasmaOrdered By: Nicole Posadas on 11-09-2022 Bilirubin [Mass/Vol] 0.3 mg/dL 0.3-1.[address] [facility] [address] abdomen pelvis w conon CT abdomen pelvis w con [facility] [place] [address] CT Scan Report Signed Patient: Chioma Arciniega MR#: [id number] : 1970 Acct:[id number] Age/Sex: 52 / F ADM Date: 11/09/22 Loc: ER Room: Type: [facility] ER Attending Dr: Copies to: Nicole [...] M.D.11/09/2022 4:14 PM Dictation Location: [place] [address] Transcribed By: [facility] 11/09/22 1614 Dictated By: Rajeev Ulloa II, MD 11/09/22 1608 Signed By: 11/09/22 1614 Normal [facility] Calcium [Mass/volume] in Ser um or PlasmaOrdered By: Nicole Posadas on 11-09-2022 Calcium [Mass/Vol] 9.7 mg/dL 8.6-10.3 [facility] Carbon dioxide, total [Moles /volume] in Serum or PlasmaOrdered By: Nicole Posadas on 11-09-2022 CO2 [Moles/Vol] 28.6 mmol/L 21.0-31.0 [facility] Chloride [Moles/volume] in S erika or PlasmaOrdered By: Nicole Posadas on 11-09-2022 Chloride [Moles/Vol] 107 mmol/L 98-107 [facility] Color Auto (U)Ordered By: Reshma Posadas on 11-09-2022 Color (U) Yellow Yellow [facility] Complete Blood Count Auto Di ffon 11-09-2022 Basophils (Bld) [#/Vol] 0.1 10*3/uL Normal 0.0-0.2 [facility] Comment on above: Result Comment: PERF ORMED BY: [place] [address] PATHOLOGIST [employer] TECH[employer] EDUC[employer] TE[employer]ER PAULA RODRIGUES M.D. Performed By: #### C BC, LIPASE, CMP #### [facility] [address] [place] [address] [place] Basophils/100 WBC (Bld) 0.9 % Normal . [facility] Comment on above: Performed By: #### C BC, LIPASE, CMP #### [facility] [address] [place] [address] [place] Eosinophils (Bld) [#/Vol] 0.1 10*3/uL Normal 0.0-0.45 [facility] Comment on above: Performed By: #### C BC, LIPASE, CMP #### [address] Eosinophils/100 WBC (Bld) 1.6 % Normal . [facility] Comment on above: Performed By: #### C BC, LIPASE, CMP #### [facility] [address] Erythrocyte distribution width (RBC) [Ratio] 13.6 % Normal 11.9-15.3 [facility] Comment on above: Performed By: #### C BC, LIPASE, CMP #### [address] Hematocrit (Bld) [Volume fraction] 44.4 % Normal 34.0-46.4 [facility] Comment on above: Performed By: #### C BC, LIPASE, CMP #### [facility] [address] [place] [address] [place] Hemoglobin (Bld) [Mass/Vol] 14.9 g/dL Normal 11.8-15.4 [facility] Comment on above: Performed By: #### C BC, LIPASE, CMP #### [facility] [address] [place] [address] [place] Lymphocytes (Bld) [#/Vol] 2.2 10*3/uL Normal 1.00-4.8 [facility] Comment on above: Performed By: #### C BC, LIPASE, CMP #### [address] Lymphocytes/100 WBC (Bld) 24.0 % Normal . [facility] Comment on above: Performed By: #### C BC, LIPASE, CMP #### [address] MCH (RBC) [Entitic mass] 32.8 pg Normal 24.7-34.3 [facility] Comment on above: Performed By: #### C BC, LIPASE, CMP #### [address] MCV (RBC) [Entitic vol] 98.2 fL Normal 80-100 [facility] Comment on above: Performed By: #### C BC, LIPASE, CMP #### [address] Mean Corpuscular HGB Conc 33.4 g/dL Normal 32.0-35.0 [facility] Comment on above: Performed By: #### C BC, LIPASE, CMP #### [address] Monocytes (Bld) [#/Vol] 0.8 10*3/uL Normal 0.0-0.8 [facility] Comment on above: Performed By: #### C BC, LIPASE, CMP #### [place] [address] [place] Monocytes/100 WBC (Bld) 18.76 % Normal 0.00-20.00 [facility] Comment on above: Performed By: #### C BC, LIPASE, CMP #### [address] Monocytes/100 WBC (Bld) 8.1 % Normal . [facility] Comment on above: Performed By: #### C BC, LIPASE, CMP #### [address] Neutrophils (Bld) [#/Vol] 6.1 10*3/uL Normal 1.8-7.7 [facility] Comment on above: Performed By: #### C BC, LIPASE, CMP #### [address] Neutrophils/100 WBC (Bld) 65.4 % Normal . [facility] Comment on above: Performed By: #### C BC, LIPASE, CMP #### [address] NRBC% 0.0 /100{WBC} Normal 0-0.5 [facility] Comment on above: Performed By: #### C BC, LIPASE, CMP #### [address] Platelet mean volume (Bld) [Entitic vol] 8.3 fL Normal 6.3-10.7 [facility] Comment on above: Performed By: #### C BC, LIPASE, CMP #### [address] Platelets (Bld) [#/Vol] 246 10*3/uL Normal 150-450 [facility] Comment on above: Performed By: #### C BC, LIPASE, CMP #### [address] RBC (Bld) [#/Vol] 4.52 10*6/uL Normal 3.60-5.00 [facility] Comment on above: Performed By: #### C BC, LIPASE, CMP #### [address] WBC (Bld) [#/Vol] 9.3 10*3/uL Normal 3.8-11.6 [facility] Comment on above: Performed By: #### C BC, LIPASE, CMP #### [address] Comprehensive Metabolic Pane nimesh 11-09-2022 Albumin [Mass/Vol] 4.4 g/dL Normal 3.5-5.7 [facility] Comment on above: Performed By: #### C BC, LIPASE, CMP #### [address] Albumin/Globulin [Mass ratio] 1.6 {ratio} Normal [facility] Comment on above: Performed By: #### C BC, LIPASE, CMP #### [address] ALP [Catalytic activity/Vol] 126 U/L High 34-104 [facility] Comment on above: Performed By: #### C BC, LIPASE, CMP #### [address] ALT [Catalytic activity/Vol] 12 U/L Normal 7-52 [facility] Comment on above: Performed By: #### C BC, LIPASE, CMP #### [address] Anion gap [Moles/Vol] 8.1 mmol/L Normal 6.0-15.0 [facility] Comment on above: Performed By: #### C BC, LIPASE, CMP #### [address] AST [Catalytic activity/Vol] 17 U/L Normal 13-39 [facility] Comment on above: Performed By: #### C BC, LIPASE, CMP #### [address] Bilirubin [Mass/Vol] 0.3 mg/dL Normal 0.3-1.0 [facility] Comment on above: Performed By: #### C BC, LIPASE, CMP #### [address] Calcium [Mass/Vol] 9.7 mg/dL Normal 8.6-10.3 [facility] Comment on above: Performed By: #### C BC, LIPASE, CMP #### [address] Chloride [Moles/Vol] 107 mmol/L Normal 98-107 [facility] Comment on above: Performed By: #### C BC, LIPASE, CMP #### [place] [address] [place] CO2 [Moles/Vol] 28.6 mmol/L Normal 21.0-31.0 [facility] Comment on above: Performed By: #### C BC, LIPASE, CMP #### [facility] [address] Creatinine [Mass/Vol] 0.78 mg/dL Normal 0.60-1.20 [facility] Comment on above: Performed By: #### C BC, LIPASE, CMP #### [address] Creatinine Clr Calc Pharmacy 69.00 [facility] Comment on above: Performed By: #### C BC, LIPASE, CMP #### [place] [address] [place] GFR/1.73 sq M.predicted MDRD (S/P/Bld) [Vol rate/Area] mL/min/{1.73_m2} [facility] Comment on above: Performed By: #### C BC, LIPASE, CMP #### [address] Globulin (S) [Mass/Vol] 2.7 g/dL [facility] Comment on above: Performed By: #### C BC, LIPASE, CMP #### [address] Glucose [Mass/Vol] 96 mg/dL Normal 70-100 [facility] Comment on above: Result Comment: [facility] Glucose Reference Range is dependent on time and content of last meal. Glucose of more than 200 mg/dL in a nonstressed, ambulatory subject supports the diagnosis of Diabetes Mellitus. ADA recommended reference range Performed By: #### C BC, LIPASE, CMP #### [address] Potassium [Moles/Vol] 3.7 mmol/L Normal 3.5-5.1 [facility] Comment on above: Performed By: #### C BC, LIPASE, CMP #### [address] Protein [Mass/Vol] 7.1 g/dL Normal 6.4-8.9 [facility] Comment on above: Performed By: #### C BC, LIPASE, CMP #### [facility] [address] Sodium [Moles/Vol] 140 mmol/L Normal 136-145 [facility] Comment on above: Performed By: #### C BC, LIPASE, CMP #### [facility] [address] [place] [address] [place] Urea nitrogen [Mass/Vol] 6 mg/dL Low 7-25 [facility] Comment on above: Performed By: #### C BC, LIPASE, CMP #### [facility] [address] Creatinine [Mass/volume] in Serum or PlasmaOrdered By: Nicole Posadas on 11-09-2022 Creatinine [Mass/Vol] 0.78 mg/dL 0.60-1.20 [facility] ECG 12 lead ECGon 11-09-2022 ECG 12 lead ECG [facility] Main [place] [address] [place] [address] Electrocardiograph Report Signed Patient: Chioma Arciniega MR#: [id number] : 1970 Acct:[id number] Age/Sex: 52 / F ADM Date: 11/09/22 Loc: ER Room: Type: [facility] ER Attending Dr: Ordering Provider: Nicole Posadas [...] [place] MD 06/29 0147 Normal [facility] Eosinophils Auto (Bld) [#/Vo l]Ordered By: Nicole Posadas on 11-09-2022 Eosinophils (Bld) [#/Vol] 0.1 10*3/uL 0.0-0.45 [facility] Eosinophils/100 WBC Auto (Bl d)Ordered By: Nicole Posadas on 11-09-2022 Eosinophils/100 WBC (Bld) 1.6 % . [facility] Erythrocyte distribution wid th Auto (RBC) [Ratio]Ordered By: Nicole Posadas on 11-09-2022 Erythrocyte distribution width (RBC) [Ratio] 13.6 % 11.9-15.3 [facility] Globulin Calc (S) [Mass/Vol] Ordered By: Nicole Posadas on 11-09-2022 Globulin (S) [Mass/Vol] 2.7 g/dL [facility] Glucose [Mass/volume] in Ser um or PlasmaOrdered By: Nicole Posadas on 11-09-2022 Glucose [Mass/Vol] 96 mg/dL 70-100 [facility] Comment on above: ADA recommended refe rence rangeRandom Glucose Reference Range is dependent on time and content of last meal. Glucose of more than 200 mg/dL in a nonstressed, ambulatory subject supports the diagnosis of Diabetes Mellitus. Hematocrit Auto (Bld) [Volum e fraction]Ordered By: Nicole Posadas on 11-09-2022 Hematocrit (Bld) [Volume fraction] 44.4 % 34.0-46.4 [facility] Hemoglobin [Mass/volume] in BloodOrdered By: Nicole Posadas on 11-09-2022 Hemoglobin (Bld) [Mass/Vol] 14.9 g/dL 11.8-15.4 [facility] Ketones Auto test strip (U) [Mass/Vol]Ordered By: Nicole Posadas on 11-09-2022 Ketones (U) [Mass/Vol] Negative Negative [facility] Leukocytes [#/volume] correc aurelia for nucleated erythrocytes in Blood by Automated counOrdered By: Nicole Posadas on 11-09-2022 WBC corrected for nucl RBC Auto (Bld) [#/Vol] 9.3 10*3/uL 3.8-11.6 [facility] Lipaseon 11-09-2022 Lipase [Catalytic activity/Vol] 78.0 U/L Normal 11.0-82.0 [facility] Comment on above: Result Comment: PERF ORMED BY: [facility] [address] [place] [address] PATHOLOGIST [employer]ATIONAL TECH[employer]ICAL EDUCATION TEACHER PAULA RODRIGUES M.D. Performed By: #### C BC, LIPASE, CMP #### [facility] [address] Lipase [Enzymatic activity/v olume] in Serum or PlasmaOrdered By: Nicole Posadas on 11-09-2022 Lipase [Catalytic activity/Vol] 78.0 U/L 11.0-82.0 [facility] Lymphocytes Auto (Bld) [#/Vo l]Ordered By: Nicole Posadas on 11-09-2022 Lymphocytes (Bld) [#/Vol] 2.2 10*3/uL 1.00-4.8 [facility] Lymphocytes/100 WBC Auto (Bl d)Ordered By: Nicole Posadas on 11-09-2022 Lymphocytes/100 WBC (Bld) 24.0 % . [facility] MCH Auto (RBC) [Entitic mass ]Ordered By: Nicole Posadas on 11-09-2022 MCH (RBC) [Entitic mass] 32.8 pg 24.7-34.3 [facility] MCHC Auto (RBC) [Mass/Vol]Or dered By: Nicole Posadas on 11-09-2022 MCHC (RBC) [Mass/Vol] 33.4 g/dL 32.0-35.0 [facility] MCV Auto (RBC) [Entitic vol] Ordered By: Nicole Posadas on 11-09-2022 MCV (RBC) [Entitic vol] 98.2 fL 80-100 [facility] Monocyte distribution width [Entitic volume] in Blood by AutomatedOrdered By: Nicole Posadas on 11-09-2022 Monocyte distribution width Auto (Bld) [Entitic vol] 18.76 % 0.00-20.00 [facility] Monocytes Auto (Bld) [#/Vol] Ordered By: Nicole Posadas on 11-09-2022 Monocytes (Bld) [#/Vol] 0.8 10*3/uL 0.0-0.8 [facility] Monocytes/100 WBC Auto (Bld) Ordered By: Nicole Posadas on 11-09-2022 Monocytes/100 WBC (Bld) 8.1 % . [facility] Neutrophils Auto (Bld) [#/Vo l]Ordered By: Nicole Posadas on 11-09-2022 Neutrophils (Bld) [#/Vol] 6.1 10*3/uL 1.8-7.7 [facility] Neutrophils/100 WBC Auto (Bl d)Ordered By: Nicole Posadas on 11-09-2022 Neutrophils/100 WBC (Bld) 65.4 % . [facility] Nitrite Test strip Ql (U)Ord ered By: Nicole Posadas on 11-09-2022 Nitrite Ql (U) Negative Negative [facility] No Panel InformationOrdered By: Nicole Posadas on 11-09-2022 Estimated GFR (CKD-EPI) > 60.0 mL/Min [facility] Pharmacy Creatinine Clearance (Chem 69.00 [facility] Nucleated erythrocytes [Pres ence] in Blood by Automated countOrdered By: Nicole Posadas on 11-09-2022 Nucleated RBC Auto Ql (Bld) 0.0 /100{WBC} 0-0.5 [facility] Platelet mean volume Auto (B ld) [Entitic vol]Ordered By: Nicole Posadas on 11-09-2022 Platelet mean volume (Bld) [Entitic vol] 8.3 fL 6.3-10.7 [facility] Platelets Auto (Bld) [#/Vol] Ordered By: Nicole Posadas on 11-09-2022 Platelets (Bld) [#/Vol] 246 10*3/uL 150-450 [facility] Potassium [Moles/volume] in Serum or PlasmaOrdered By: Nicole Posadas on 11-09-2022 Potassium [Moles/Vol] 3.7 mmol/L 3.5-5.1 [facility] Protein Auto test strip (U) [Mass/Vol]Ordered By: Nicole Posadas on 11-09-2022 Protein (U) [Mass/Vol] Negative Negative [facility] Protein [Mass/volume] in Ser um or PlasmaOrdered By: Nicole Posadas on 11-09-2022 Protein [Mass/Vol] 7.1 g/dL 6.4-8.9 [facility] RBC Auto (Bld) [#/Vol]Ordere d By: Nicole Posadas on 11-09-2022 RBC (Bld) [#/Vol] 4.52 10*6/uL 3.60-5.00 [facility] Serum or plasma albumin/glob ulin mass ratioOrdered By: Nicole Posadas on 11-09-2022 Albumin/Globulin [Mass ratio] 1.6 {ratio} [facility] Serum or plasma anion gap de terminationOrdered By: Nicole Posadas on 11-09-2022 Anion gap [Moles/Vol] 8.1 mmol/L 6.0-15.0 [facility] Sodium [Moles/volume] in Ser um or PlasmaOrdered By: Nicole Posadas on 11-09-2022 Sodium [Moles/Vol] 140 mmol/L 136-145 [facility] Specific gravity Auto test s trip (U) [Rel density]Ordered By: Nicole Posadas on 11-09-2022 Specific gravity (U) [Rel density] 1.012 1.001-1.03 0 [facility] Troponin I High Sensitivityo n 11-09-2022 Troponin I High Sensitivity 3.0 pg/mL Normal 0.0-15.0 [facility] Comment on above: Result Comment: PERF ORMED BY: [place] [address] PATHOLOGIST VOCATIONAL TECH[employer]ICAL EDUCATION TEACHER PAULA RODRIGUES M.D. Performed By: #### H S TROP #### [address] Troponin I.cardiac [Mass/vol ume] in Serum or Plasma by Detection limit <= 0.01 ng/Ordered By: Nicole Posadas on 11-09-2022 Troponin I.cardiac DL <= 0.01 ng/mL [Mass/Vol] 3.0 pg/mL 0.0-15.0 [facility] Urea nitrogen [Mass/volume] in Serum or PlasmaOrdered By: Nicole Posadas on 11-09-2022 Urea nitrogen [Mass/Vol] 6 mg/dL 7-25 [facility] Urinalysison 11-09-2022 Appearance (U) Clear Normal Clear [facility] Comment on above: Order Comment: Name Collection Type:: Clean-Voided Midstream Performed By: #### H S TROP, CMP, CBC, LIPASE #### [facility] [address] [place] [address] [place] Bilirubin,Urine Negative Normal Negative [facility] Comment on above: Order Comment: Name Collection Type:: Clean-Voided Midstream Performed By: #### H S TROP, CMP, CBC, LIPASE #### [facility] [address] [place] [address] [place] Color (U) Yellow Normal Yellow [facility] Comment on above: Order Comment: Name Collection Type:: Clean-Voided Midstream Performed By: #### H S TROP, CMP, CBC, LIPASE #### [facility] [address] [place] [address] [place] Glucose Ql (U) Normal Normal Normal [facility] Comment on above: Order Comment: Name Collection Type:: Clean-Voided Midstream Performed By: #### H S TROP, CMP, CBC, LIPASE #### [facility] [address] [place] [address] [place] Ketones Ql (U) Negative Normal Negative [facility] Comment on above: Order Comment: Name Collection Type:: Clean-Voided Midstream Performed By: #### H S TROP, CMP, CBC, LIPASE #### [facility] [address] [place] [address] [place] Leukocyte esterase Test strip Ql (U) Negative Normal Negative [facility] Comment on above: Order Comment: Name Collection Type:: Clean-Voided Midstream Performed By: #### H S TROP, CMP, CBC, LIPASE #### [place] [address] [place] Nitrite,Urine Negative Normal Negative [facility] Comment on above: Order Comment: Name Collection Type:: Clean-Voided Midstream Performed By: #### H S TROP, CMP, CBC, LIPASE #### [address] Occult Blood,Urine Negative Normal Negative [facility] Comment on above: Order Comment: Name Collection Type:: Clean-Voided Midstream Result Comment: PERF ORMED BY: [place] [address] PATHOLOGIST VOCATIONAL TECH[employer]ICAL EDUCATION TEACHER PAULA RODRIGUES M.D. Performed By: #### H S TROP, CMP, CBC, LIPASE #### [address] pH (U) 5.5 [pH] Normal 5.0-9.0 [facility] Comment on above: Order Comment: Name Collection Type:: Clean-Voided Midstream Performed By: #### H S TROP, CMP, CBC, LIPASE #### [address] Protein,Urine Negative Normal Negative [facility] Comment on above: Order Comment: Name Collection Type:: Clean-Voided Midstream Performed By: #### H S TROP, CMP, CBC, LIPASE #### [address] Specificy [place],Urine 1.012 Normal 1.001-1.03 0 [facility] Comment on above: Order Comment: Name Collection Type:: Clean-Voided Midstream Performed By: #### H S TROP, CMP, CBC, LIPASE #### [address] Urobilinogen,Urine Normal Normal Normal [facility] Comment on above: Order Comment: Name Collection Type:: Clean-Voided Midstream Performed By: #### H S TROP, CMP, CBC, LIPASE #### [address] Urine clarity by refractomet ry automatedOrdered By: Nicole Posadas on 11-09-2022 Clarity Refractometry automated (U) Clear Clear [facility] Urine glucose measurement by automated test strip (mass/volume)Ordered By: Nicole Posadas on 11-09-2022 Glucose Auto test strip (U) [Mass/Vol] Normal mg/dL Normal [facility] Urine hemoglobin detection b y automated test stripOrdered By: Nicole Posadas on 11-09-2022 Hemoglobin Auto test strip Ql (U) Negative Negative [facility] Urine leukocyte esterase det ection by automated test stripOrdered By: Nicole Posadas on 11-09-2022 Leukocyte esterase Auto test strip Ql (U) Negative Negative [facility] Urobilinogen Auto test strip (U) [Mass/Vol]Ordered By: Nicole Posadas on 11-09-2022 Urobilinogen (U) [Mass/Vol] Normal mg/dL Normal [facility] WBC Auto (Bld) [#/Vol]Ordere d By: Nicole Posadas on 11-09-2022 WBC (Bld) [#/Vol] 9.3 10*3/uL 3.8-11.6 [facility] pH Auto test strip (U)Ordere d By: Nicole Posadas on 11-09-2022 pH (U) 5.5 [pH] 5.0-9.0 [facility] UPPER EUSon 08-12-2022 [facility] Gastroenterology Patient Name: Chioma Rainey Procedure Date: 08/12/2022 11:09 AM Date of : 1970 Admit Type: Outpatient Age: 52 Room: EUS Proc Room 01 Gender: Female Note Status: Finalized Attending MD: Sabrina Dee MD, MPH, [id number] Procedure: Upper EUS Indications: Chronic pancreatitis, Epigastric abdominal pain, Celiac plexus block for pain secondary to chronic pancreatitis, Dysphagia, Follow-up of esophageal stenosis, For therapy of esophageal stenosis Providers: Sabrina Dee MD, MPH (Doctor), Kolby Gifford, RN (Nurse), Elba Faustin (Nurse), Mary Gaviria, [employer]er (Fuel Efficient [employer]obile Designer) Referring MD: Alexander Nichols MD (Referring MD) [...] by the physician, the nurse and the manager roofing in the procedure room. Mental Status Examination: [...] abnor (more content not included)... LAB, [facility] Radiology Study observation (narrative) [facility] AMYLASEon 06-13-2022 Amylase [Catalytic activity/Vol] 92 U/L Normal 25-115 [facility] Comment on above: Performed By: #### L IPA, CMP, CRP, NAT #### [facility] [address] [place] [address] Dr. Keturha Fisher CBC AUTO DIFFon 06-13-2022 BASO # 0.1 103/ul Normal 0.0-0.1 The [facility] Comment on above: Performed By: #### L IPA, CMP, CRP, NAT #### [facility] [address] [place] [address] Dr. Keturah Fisher Basophils/100 WBC (Bld) 0.7 % Normal 0.2-2.0 [facility] Comment on above: Performed By: #### L IPA, CMP, CRP, NAT #### [facility] [address] [place] [address] Dr. Keturah Fisher EO # 0.1 103/ul Normal 0.0-0.7 The [facility] Comment on above: Performed By: #### L IPA, CMP, CRP, NAT #### [facility] [address] [place] [address] Dr. Keturah Fisher Eosinophils/100 WBC (Bld) 1.1 % Normal 0.9-7.0 The [facility] Comment on above: Performed By: #### L IPA, CMP, CRP, NAT #### [facility] [address] [place] [address] Dr. Keturah Fisher Erythrocyte distribution width (RBC) [Ratio] 13.0 % Normal 11.0-15.0 The [facility] Comment on above: Performed By: #### L IPA, CMP, CRP, NAT #### [facility] [address] [place] [address] Dr. Keturah Fisher Hematocrit (Bld) [Volume fraction] 40.5 % Normal 36.0-48.0 The [facility] Comment on above: Performed By: #### L IPA, CMP, CRP, NAT #### [facility] [address] [place] [address] Dr. Keturah Fisher Hemoglobin (Bld) [Mass/Vol] 13.9 g/dL Normal 12.0-16.0 [facility] Comment on above: Performed By: #### L IPA, CMP, CRP, NAT #### [facility] [address] [place] [address] Dr. Keturah Fisher IG # 0.03 10e3/ul Normal 0.00-0.03 [facility] Comment on above: Performed By: #### L IPA, CMP, CRP, NAT #### [facility] [address] [place] [address] Dr. Keturah Fisher IG % 0.3 % Normal 0.0-0.5 [facility] Comment on above: Performed By: #### L IPA, CMP, CRP, NAT #### [facility] [address] [place] [address] Dr. Keturah Fisher LYMPH # 2.9 103/ul Normal 1.2-3.8 The [facility] Comment on above: Performed By: #### L IPA, CMP, CRP, NAT #### [facility] [address] [place] [address] Dr. Keturah Fisher Lymphocytes/100 WBC (Bld) 25.0 % Normal 20.5-60.0 [facility] Comment on above: Performed By: #### L IPA, CMP, CRP, NAT #### [facility] [address] [place] [address] Dr. Keturah Fisher MANUAL DIFF REQ NO Normal The [facility] Comment on above: Performed By: #### L IPA, CMP, CRP, NAT #### [facility] [address] [place] [address] Dr. Keturah Fisher MCH (RBC) [Entitic mass] 33.3 pg Normal 26.7-34.0 [facility] Comment on above: Performed By: #### L IPA, CMP, CRP, NAT #### [facility] [address] [place] [address] Dr. Keturah Fisher MCHC (RBC) [Mass/Vol] 34.3 g/dL Normal 29.9-35.2 The [facility] Comment on above: Performed By: #### L IPA, CMP, CRP, NAT #### [facility] [address] [place] [address] Dr. Keturah Fisher MCV (RBC) [Entitic vol] 96.9 fL Normal 81.0-99.0 The [facility] Comment on above: Performed By: #### L IPA, CMP, CRP, NAT #### [facility] [address] [place] [address] Dr. Keturah Fisher MONO # 0.7 103/ul Normal 0.3-0.8 [facility] Comment on above: Performed By: #### L IPA, CMP, CRP, NAT #### [facility] [address] [place] [address] Dr. Keturah Fisher Monocytes/100 WBC (Bld) 5.6 % Normal 1.7-12.0 [facility] Comment on above: Performed By: #### L IPA, CMP, CRP, NAT #### [facility] [address] [place] [address] Dr. Keturah Fisher NEUT # 7.8 103/ul Critically high 1.4-6.5 [facility] Comment on above: Performed By: #### L IPA, CMP, CRP, NAT #### [facility] [address] [place] [address] Dr. Keturah Fisher Neutrophils/100 WBC (Bld) 67.3 % Normal 43.0-75.0 The [facility] Comment on above: Performed By: #### L IPA, CMP, CRP, NAT #### [facility] [address] [place] [address] Dr. Keturah Fisher Platelet mean volume (Bld) [Entitic vol] 9.5 fL Normal 9.5-13.5 [facility] Comment on above: Performed By: #### L IPA, CMP, CRP, NAT #### [facility] [address] [place] [address] Dr. Keturah Fisher PLT 227 103/ul Normal 150-450 The [facility] Comment on above: Performed By: #### L IPA, CMP, CRP, NAT #### [facility] [address] [address] [address] Keturah Fisher RBC 4.18 106/ul Critically low 4.20-5.40 The [facility] Comment on above: Performed By: #### L IPA, CMP, CRP, NAT #### [facility] [address] [address] [address] Keturah Fisher WBC 11.5 103/ul Critically high 4.0-11.0 The [facility] Comment on above: Performed By: #### L IPA, CMP, CRP, NAT #### [facility] [address] [place] [address] Dr. Keturah Fisher LIPASEon 06-13-2022 Lipase [Catalytic activity/Vol] 168.0 U/L Normal 73.0-393.0 [facility] Comment on above: Performed By: #### L IPA, CMP, CRP, NAT #### [facility] [address] [place] [address] Dr. Keturah Fisher PROF 14(COMP METB)on 023 Albumin [Mass/Vol] 3.6 g/dL Normal 3.4-5.0 [facility] Comment on above: Performed By: #### L IPA, CMP, CRP, NAT #### [facility] [address] [place] [address] Dr. Keturah Fisher Albumin/Globulin [Mass ratio] 1.1 {ratio} Normal The [facility] Comment on above: Performed By: #### L IPA, CMP, CRP, NAT #### [facility] [address] [place] [address] Dr. Keturah Fisher ALP [Catalytic activity/Vol] 132 U/L Critically high 46-116 The [facility] Comment on above: Performed By: #### L IPA, CMP, CRP, NAT #### [facility] [address] [place] [address] Dr. Keturah Fisher ALT [Catalytic activity/Vol] 20 U/L Normal 14-59 [facility] Comment on above: Performed By: #### L IPA, CMP, CRP, NAT #### [facility] [address] [address] [address] Keturah Fisher Anion gap [Moles/Vol] 13.7 mmol/L Normal Th [facility] Comment on above: Performed By: #### L IPA, CMP, CRP, NAT #### [facility] [address] [address] [address] Keturah Fisher AST [Catalytic activity/Vol] 19 U/L Normal 15-37 [facility] Comment on above: Performed By: #### L IPA, CMP, CRP, NAT #### [facility] [address] [address] [address] Keturah Fisher Bilirubin [Mass/Vol] 0.1 mg/dL Critically low 0.2-1.0 [facility] Comment on above: Performed By: #### L IPA, CMP, CRP, NAT #### [facility] [address] [address] [address] Keturah Fisher Calcium [Mass/Vol] 10.1 mg/dL Normal 8.5-10.1 [facility] Comment on above: Performed By: #### L IPA, CMP, CRP, NAT #### [facility] [address] [address] [address] Keturah Fisher Chloride [Moles/Vol] 104 mmol/L Normal 98-107 [facility] Comment on above: Performed By: #### L IPA, CMP, CRP, NAT #### [facility] [address] [address] [address] Keturah Fisher CO2 [Moles/Vol] 26.7 mmol/L Normal 21.0-32.0 [facility] Comment on above: Performed By: #### L IPA, CMP, CRP, NAT #### [facility] [address] [address] [address] Keturah Fisher Creatinine [Mass/Vol] 0.83 mg/dL Normal 0.55-1.02 [facility] Comment on above: Performed By: #### L IPA, CMP, CRP, NAT #### [facility] [address] [address] [address] Keturah Fisher EGFR-AF NIGERIEN >60 Normal >=60 [facility] Comment on above: Performed By: #### L IPA, CMP, CRP, NAT #### [facility] [address] [address] [address] Keturah Fisher EGFR-NON AF NIGERIEN >60 Normal >=60 [facility] Comment on above: Performed By: #### L IPA, CMP, CRP, NAT #### [facility] [address] [address] [address] Keturah Fisher Globulin (S) [Mass/Vol] 3.4 g/dL Normal [facility] Comment on above: Performed By: #### L IPA, CMP, CRP, NAT #### [facility] [address] [address] [address] Keturah Fisher Glucose [Mass/Vol] 115 mg/dL Critically high 74-106 [facility] Comment on above: Performed By: #### L IPA, CMP, CRP, NAT #### [facility] [address] [place] [address] Dr. Keturah Fisher Potassium [Moles/Vol] 3.4 mmol/L Critically low 3.5-5.1 [facility] Comment on above: Performed By: #### L IPA, CMP, CRP, NAT #### [facility] [address] [address] [address] Keturah Fisher Protein [Mass/Vol] 7.0 g/dL Normal 6.4-8.2 The [facility] Comment on above: Performed By: #### L IPA, CMP, CRP, NAT #### [facility] [address] [address] [address] Keturah Fisher Sodium [Moles/Vol] 141 mmol/L Normal 136-145 The [facility] Comment on above: Performed By: #### L IPA, CMP, CRP, NAT #### [facility] [address] [address] [address] Keturah Fisher Urea nitrogen [Mass/Vol] 9.0 mg/dL Normal 7.0-18.0 [facility] Comment on above: Performed By: #### L IPA, CMP, CRP, NAT #### [facility] [address] [address] [address] Keturah Fisher Urea nitrogen/Creatinine [Mass ratio] 10.8 mg/mg Normal The [facility] Comment on above: Performed By: #### L IPA, CMP, CRP, NAT #### [facility] [id number] Keturah Fisher XR ABD FLAT UP_PA Jorje 06-13 XR ABD FLAT UP_PA CH EXAM: XR ABD FLAT U P_PA CH HISTORY: NAUSEA WITH VOMITING, UNSPECIFIED COMPARISON: [...] ION KRUSE Date: 2022-06-13 17:10 Normal The [facility] AMYLASEon 03-29-2022 Amylase [Catalytic activity/Vol] 141 U/L Critically high 25-115 The [facility] Comment on above: Performed By: #### L IVER, LIPA, BMP, NAT ####[facility] [address] [place], [place] [address]XtDr. Keturah Fisher CBC AUTO DIFFon 03-29-2022 BASO # 0.1 103/ul Normal 0.0-0.1 [facility] Comment on above: Performed By: #### L IPA, CMP, CRP, NAT #### [facility] [address] [place], [place] [address] Dr. Keturah Fisher Basophils/100 WBC (Bld) 0.6 % Normal 0.2-2.0 The [facility] Comment on above: Performed By: #### L IPA, CMP, CRP, NAT #### [facility] [id number] Keturah Fisher EO # 0.1 103/ul Normal 0.0-0.7 The [facility] Comment on above: Performed By: #### L IPA, CMP, CRP, NAT #### [facility] [address] [place] [address] Dr. Keturah Fisher Eosinophils/100 WBC (Bld) 0.7 % Critically low 0.9-7.0 [facility] Comment on above: Performed By: #### L IPA, CMP, CRP, NAT #### [facility] [address] [place] [address] Dr. Keturah Fisher Erythrocyte distribution width (RBC) [Ratio] 12.9 % Normal 11.0-15.0 [facility] Comment on above: Performed By: #### L IPA, CMP, CRP, NAT #### [facility] [address] [place] [address] Dr. Keturah Fisher Hematocrit (Bld) [Volume fraction] 39.7 % Normal 36.0-48.0 [facility] Comment on above: Performed By: #### L IPA, CMP, CRP, NAT #### [facility] [address] [place] [address] Dr. Keturah Fisher Hemoglobin (Bld) [Mass/Vol] 14.7 g/dL Normal 12.0-16.0 [facility] Comment on above: Performed By: #### L IPA, CMP, CRP, NAT #### [facility] [address] [place] [address] Dr. Keturah Fisher IG # 0.04 10e3/ul Critically high 0.00-0.03 [facility] Comment on above: Performed By: #### L IPA, CMP, CRP, NAT #### [facility] [address] [place] [address] Dr. Keturah Fisher IG % 0.4 % Normal 0.0-0.5 The [facility] Comment on above: Performed By: #### L IPA, CMP, CRP, NAT #### [facility] [address] [place] [address] Dr. Keturah Fisher LYMPH # 2.1 103/ul Normal 1.2-3.8 The [facility] Comment on above: Performed By: #### L IPA, CMP, CRP, NAT #### [facility] [address] [place] [address] Dr. Keturah Fisher Lymphocytes/100 WBC (Bld) 21.2 % Normal 20.5-60.0 [facility] Comment on above: Performed By: #### L IPA, CMP, CRP, NAT #### [facility] [address] [place] [address] Dr. Keturah Fisher MANUAL DIFF REQ NO Normal The [facility] Comment on above: Performed By: #### L IPA, CMP, CRP, NAT #### [facility] [address] [place] [address] Dr. Keturah Fisher MCH (RBC) [Entitic mass] 33.0 pg Normal 26.7-34.0 [facility] Comment on above: Performed By: #### L IPA, CMP, CRP, NAT #### [facility] [address] [place] [address] Dr. Keturah Fisher MCHC (RBC) [Mass/Vol] 37.0 g/dL Critically high 29.9-35.2 The [facility] Comment on above: Performed By: #### L IPA, CMP, CRP, NAT #### [facility] [address] [place] [address] Dr. Keturah Fisher MCV (RBC) [Entitic vol] 89.0 fL Normal 81.0-99.0 [facility] Comment on above: Performed By: #### L IPA, CMP, CRP, NAT #### [facility] [address] [place] [address] Dr. Keturah Fisher MONO # 1.0 103/ul Critically high 0.3-0.8 The [facility] Comment on above: Performed By: #### L IPA, CMP, CRP, NAT #### [facility] [address] [place] [address] Dr. Keturah Fisher Monocytes/100 WBC (Bld) 10.3 % Normal 1.7-12.0 [facility] Comment on above: Performed By: #### L IPA, CMP, CRP, NAT #### [facility] [address] [place] [address] Dr. Keturah Fisher NEUT # 6.5 103/ul Normal 1.4-6.5 [facility] Comment on above: Performed By: #### L IPA, CMP, CRP, NAT #### [facility] [address] [address] [address] Keturah Fisher Neutrophils/100 WBC (Bld) 66.8 % Normal 43.0-75.0 [facility] Comment on above: Performed By: #### L IPA, CMP, CRP, NAT #### [facility] [address] [place] [address] Dr. Keturah Fisher Platelet mean volume (Bld) [Entitic vol] 9.2 fL Critically low 9.5-13.5 [facility] Comment on above: Performed By: #### L IPA, CMP, CRP, NAT #### [facility] [address] [place] [address] Dr. Keturah Fisher PLT 229 103/ul Normal 150-450 [facility] Comment on above: Performed By: #### L IPA, CMP, CRP, NAT #### [facility] [address] [place] [address] Dr. Keturah Fisher RBC 4.46 106/ul Normal 4.20-5.40 [facility] Comment on above: Performed By: #### L IPA, CMP, CRP, NAT #### [facility] [address] [place] [address] Dr. Keturah Fisher WBC 9.7 103/ul Normal 4.0-11.0 [facility] Comment on above: Performed By: #### L IPA, CMP, CRP, NAT #### [facility] [address] [place] [address] Dr. Keturah Fisher LACTATE/LACTIC ACIDon 2022 Lactate [Moles/Vol] 0.5 mmol/L Normal 0.4-1.9 [facility] Comment on above: Performed By: #### L IPA, CMP, CRP, NAT #### [facility] [address] [place] [address] Dr. Keturah Fisher LIPASEon 03-29-2022 Lipase [Catalytic activity/Vol] 308.0 U/L Normal 73.0-393.0 [facility] Comment on above: Performed By: #### L IVER, LIPA, BMP, NAT ####[facility] [address] [address]. Elisaeli Phillip LIVER PROFILEon 03-29-2022 Albumin [Mass/Vol] 3.3 g/dL Critically low 3.4-5.0 Th e [facility] Comment on above: Performed By: #### L IVER, LIPA, BMP, NAT ####[facility] [address] [place], [place] [address]Dr. Keturah Fisher Albumin/Globulin [Mass ratio] 0.8 {ratio} Normal The [facility] Comment on above: Performed By: #### L IVER, LIPA, BMP, NAT ####[facility] [address] [place], [place] [address]Dr. Keturah Fisher ALP [Catalytic activity/Vol] 182 U/L Critically high 46-116 The [facility] Comment on above: Performed By: #### L IVER, LIPA, BMP, NAT ####[facility] [address] [place], [place] [address]Dr. Keturah Fisher ALT [Catalytic activity/Vol] 16 U/L Normal 14-59 [facility] Comment on above: Performed By: #### L IVER, LIPA, BMP, NAT ####[facility] [address] [place], [place] [address]Dr. Keturah Fisher AST [Catalytic activity/Vol] 26 U/L Normal 15-37 The [facility] Comment on above: Performed By: #### L IVER, LIPA, BMP, NAT ####[facility] [address] [place], [place] [address]Dr. Keturah Fisher BILI, CONJUGATED 0.0 mg/dL Normal 0.0-0.2 The [facility] Comment on above: Performed By: #### L IVER, LIPA, BMP, NAT ####[facility] [address] [place], [place] [address]Dr. Keturah Fisher Bilirubin [Mass/Vol] 0.3 mg/dL Normal 0.2-1.0 The [facility] Comment on above: Performed By: #### L IVER, LIPA, BMP, NAT ####[facility] [address] [address]Dr. Elisaeli Fisher Globulin (S) [Mass/Vol] 3.9 g/dL Normal [facility] Comment on above: Performed By: #### L IVER, LIPA, BMP, NAT ####[facility] [address] [address]Dr. Keturah Fisher Protein [Mass/Vol] 7.2 g/dL Normal 6.4-8.2 [facility] Comment on above: Performed By: #### L IVER, LIPA, BMP, NAT ####[facility] [address] [place], [place] [address]Dr. Keturah Fisher PROF CHEM 8 (BAS METB)on Anion gap [Moles/Vol] 14.6 mmol/L Normal [facility] Comment on above: Performed By: #### L IVER, LIPA, BMP, NAT ####[facility] [address] [place], [place] [address]Dr. Keturah Fisher Calcium [Mass/Vol] 10.1 mg/dL Normal 8.5-10.1 [facility] Comment on above: Performed By: #### L IVER, LIPA, BMP, NAT ####[facility] [address] [place], [place] [address]Dr. Keturah Fisher Chloride [Moles/Vol] 104 mmol/L Normal 98-107 [facility] Comment on above: Performed By: #### L IVER, LIPA, BMP, NAT ####[facility] [address] [place], [place] [address]Dr. Keturah Fisher CO2 [Moles/Vol] 24.8 mmol/L Normal 21.0-32.0 [facility] Comment on above: Performed By: #### L IVER, LIPA, BMP, NAT ####[facility] [address] [place], [place] [address]Dr. Keturah Fisher Creatinine [Mass/Vol] 0.61 mg/dL Normal 0.55-1.02 The [facility] Comment on above: Performed By: #### L IVHERMINIA LIPA BMP, NAT ####[facility] [address] [address]Dr. Yilan Fisher EGFR-AF NIGERIEN >60 Normal >=60 The [facility] Comment on above: Performed By: #### L IVER LIPA BMP, NAT ####[facility] [address] [address]Dr. Yilan Fisher EGFR-NON AF NIGERIEN >60 Normal >=60 The [facility] Comment on above: Performed By: #### L IVHERMINIA LIPA BMP, NAT ####[facility] [address] [place], [place] [address]Dr. Keturah Fisher Glucose [Mass/Vol] 98 mg/dL Normal 74-106 The [facility] Comment on above: Performed By: #### L IVHERMINIA LIPA BMP, NAT ####[facility] [address] [place], [place] [address]Dr. Keturah Fisher Potassium [Moles/Vol] 4.4 mmol/L Normal 3.5-5.1 The [facility] Comment on above: Performed By: #### L IVHERMINIA LIPA BMP, NAT ####[facility] [address] [address]Dr. Keturah Fisher Sodium [Moles/Vol] 139 mmol/L Normal 136-145 The [facility] Comment on above: Performed By: #### L IVHERMINIA LIPA, BMP, NAT ####[facility] [address] [place], [place] [address]Dr. Elisalan Fisher Urea nitrogen [Mass/Vol] 7.0 mg/dL Normal 7.0-18.0 The [facility] Comment on above: Performed By: #### L IVHERMINIA LIPA, BMP, NAT ####[facility] [address] [address]Dr. Keturah Fisher Urea nitrogen/Creatinine [Mass ratio] 11.5 mg/mg Normal The [facility] Comment on above: Performed By: #### L IVHERMINIA LIPA, FRANNIE, NAT ####[facility] [id number] [place], [place] [address]WhGopal Keturah Fisher Albumin [Mass/volume] in Ser um or PlasmaOrdered By: Agustin Llanes on 03-22-2022 Albumin [Mass/Vol] 4.1 g/dL 3.2-5.5 [facility] Automated erythrocytes count in urine sediment (number/area)Ordered By: Agustin Llanes on 03-22-2022 RBC Auto (Urine sed) [#/Area] 3-4 [HPF] 0-4 [facility] Automated leukocytes count i n urine sediment (number/area)Ordered By: Agustin Llanes on 03-22-2022 WBC Auto (Urine sed) [#/Area] 10-19 [HPF] 0-4 [facility] Basophils Auto (Bld) [#/Vol] Ordered By: Agustin Llanes on 03-22-2022 Basophils (Bld) [#/Vol] 0.1 10*3/uL 0.0-0.2 [facility] Basophils/100 WBC Auto (Bld) Ordered By: Agustin Llanes on 03-22-2022 Basophils/100 WBC (Bld) 0.9 % . [facility] Bilirubin Test strip Ql (U)O rdered By: Agustin Llanes on 03-22-2022 Bilirubin Ql (U) Negative Negative [facility] Color Auto (U)Ordered By: Vita Llanes on 03-22-2022 Color (U) Yellow Yellow [facility] Creatinine and Glomerular fi ltration rate.predicted panel (S/P/Bld)Ordered By: Agustin Llanes on 03-22-2022 Creatinine [Mass/Vol] 0.74 mg/dL 0.44-1.03 [facility] Direct bilirubin measurement Ordered By: Agustin Llanes on 03-22-2022 Bilirubin.direct [Mass/Vol] 0.3 mg/dL 0.0-0.4 [facility] Eosinophils Auto (Bld) [#/Vo l]Ordered By: Agustin Llanes on 03-22-2022 Eosinophils (Bld) [#/Vol] 0.1 10*3/uL 0.0-0.45 [facility] Eosinophils/100 WBC Auto (Bl d)Ordered By: Agustin Llanes on 03-22-2022 Eosinophils/100 WBC (Bld) 0.7 % . [facility] Erythrocyte distribution wid th Auto (RBC) [Ratio]Ordered By: Agustin Llanes on 03-22-2022 Erythrocyte distribution width (RBC) [Ratio] 13.9 % 11.9-15.3 [facility] Estimated glomerular filtrat ion rate (GFR) non- AmericanOrdered By: Agustin Llanes on 03-22-2022 GFR/1.73 sq M.predicted among non-blacks MDRD (S/P/Bld) [Vol rate/Area] > 60 mL/Min [facility] Globulin Calc (S) [Mass/Vol] Ordered By: Agustin Llanes on 03-22-2022 Globulin (S) [Mass/Vol] 3.1 g/dL [facility] HCG ( test) IA.rapi d Ql (U)Ordered By: Augstin Llanes on 03-22-2022 HCG ( test) Ql (U) Negative [facility] Hematocrit Auto (Bld) [Volum e fraction]Ordered By: Agustin Llanes on 03-22-2022 Hematocrit (Bld) [Volume fraction] 45.7 % 34.0-46.4 [facility] Hemoglobin [Mass/volume] in BloodOrdered By: Agustin Llanes on 03-22-2022 Hemoglobin (Bld) [Mass/Vol] 15.2 g/dL 11.8-15.4 [facility] Ketones Auto test strip (U) [Mass/Vol]Ordered By: Agustin Llanes on 03-22-2022 Ketones (U) [Mass/Vol] Negative Negative [facility] Laboratory - Chemistry and C hemistry - challengeOrdered By: Agustin Llanes on 03-22-2022 Lipase [Catalytic activity/Vol] 122.0 U/L 22-51 [facility] Laboratory - UrinalysisOrder ed By: Agustin Llanes on 03-22-2022 Hyaline casts LM Ql (Urine sed) 0-8 [LPF] 0-8 [facility] Leukocytes [#/volume] correc aurelia for nucleated erythrocytes in Blood by Automated counOrdered By: Agustin Llanes on 03-22-2022 WBC corrected for nucl RBC Auto (Bld) [#/Vol] 12.4 10*3/uL 3.8-11.6 [facility] Lymphocytes Auto (Bld) [#/Vo l]Ordered By: Agustin Llanes on 03-22-2022 Lymphocytes (Bld) [#/Vol] 2.2 10*3/uL 1.00-4.8 [facility] Lymphocytes/100 WBC Auto (Bl d)Ordered By: Agustin Llanes on 03-22-2022 Lymphocytes/100 WBC (Bld) 18.0 % . [facility] MCH Auto (RBC) [Entitic mass ]Ordered By: Agustin Llanes on 03-22-2022 MCH (RBC) [Entitic mass] 32.5 pg 24.7-34.3 [facility] MCHC Auto (RBC) [Mass/Vol]Or dered By: Agustin Llanes on 03-22-2022 MCHC (RBC) [Mass/Vol] 33.2 g/dL 32.0-35.0 [facility] MCV Auto (RBC) [Entitic vol] Ordered By: Agustin Llanes on 03-22-2022 MCV (RBC) [Entitic vol] 98.0 fL 80-100 [facility] Monocyte distribution width [Entitic volume] in Blood by AutomatedOrdered By: Agustin Llanes on 03-22-2022 Monocyte distribution width Auto (Bld) [Entitic vol] 18.78 % 0.00-20.00 [facility] Monocytes Auto (Bld) [#/Vol] Ordered By: Agustin Llanes on 03-22-2022 Monocytes (Bld) [#/Vol] 1.0 10*3/uL 0.0-0.8 [facility] Monocytes/100 WBC Auto (Bld) Ordered By: Agustin Llanes on 03-22-2022 Monocytes/100 WBC (Bld) 8.0 % . [facility] Neutrophils Auto (Bld) [#/Vo l]Ordered By: Agustin Llanes on 03-22-2022 Neutrophils (Bld) [#/Vol] 9.0 10*3/uL 1.8-7.7 [facility] Neutrophils/100 WBC Auto (Bl d)Ordered By: Agustin Llanes on 03-22-2022 Neutrophils/100 WBC (Bld) 72.4 % . [facility] Nitrite Test strip Ql (U)Ord ered By: Agustin Llanes on 03-22-2022 Nitrite Ql (U) Positive Negative [facility] No Panel InformationOrdered By: Agustin Llanes on 03-22-2022 Estimated GFR () > 60 mL/Min [facility] Comment on above: GFR estimated refere nce range: According to KDOQI guidelines, <60 ml/min/1.73m2 is sufficient to diagnose a patient with chronic kidney disease. Pharmacy Creatinine Clearance (Chem 70.34 [facility] Nucleated erythrocytes [Pres ence] in Blood by Automated countOrdered By: Agustin Llanes on 03-22-2022 Nucleated RBC Auto Ql (Bld) 0.0 /100{WBC} 0-0.5 [facility] Platelet mean volume Auto (B ld) [Entitic vol]Ordered By: Agustin Llanes on 03-22-2022 Platelet mean volume (Bld) [Entitic vol] 8.0 fL 6.3-10.7 [facility] Platelets Auto (Bld) [#/Vol] Ordered By: Agustin Llanes on 03-22-2022 Platelets (Bld) [#/Vol] 266 10*3/uL 150-450 [facility] Protein Auto test strip (U) [Mass/Vol]Ordered By: Agustin Llanes on 03-22-2022 Protein (U) [Mass/Vol] Negative Negative [facility] Protein [Mass/volume] in Ser um or PlasmaOrdered By: Agustin Llanes on 03-22-2022 Protein [Mass/Vol] 7.2 g/dL 6.1-7.9 [facility] RBC Auto (Bld) [#/Vol]Ordere d By: Agustin Llanes on 03-22-2022 RBC (Bld) [#/Vol] 4.67 10*6/uL 3.60-5.00 [facility] Serum or plasma alanine hughes otransferase measurement without P-5'-P (enzymatic activiOrdered By: Agustin Llanes on 03-22-2022 ALT No additional P-5'-P [Catalytic activity/Vol] 19 U/L 10-60 [facility] Serum or plasma albumin/glob ulin mass ratioOrdered By: Agustin Llanes on 03-22-2022 Albumin/Globulin [Mass ratio] 1.3 {ratio} [facility] Serum or plasma alkaline jaqueline sphatase measurement (enzymatic activity/volume)Ordered By: Agustin Llanes on 03-22-2022 ALP [Catalytic activity/Vol] 156 U/L 32-92 [facility] Serum or plasma anion gap de terminationOrdered By: Agustin lLanes on 03-22-2022 Anion gap [Moles/Vol] 12.6 mmol/L 6.0-15.0 [facility] Serum or plasma aspartate am inotransferase measurement (enzymatic activity/volume)Ordered By: Agustin Llanes on 03-22-2022 AST [Catalytic activity/Vol] 29 U/L 10-42 [facility] Serum or plasma calcium priscilla urement (mass/volume)Ordered By: Agustin Llanes on 03-22-2022 Calcium [Mass/Vol] 9.9 mg/dL 8.2-10.2 [facility] Serum or plasma chloride daron surement (moles/volume)Ordered By: Agustin Llanes on 03-22-2022 Chloride [Moles/Vol] 103 mmol/L 95-114 [facility] Serum or plasma glucose priscilla urement (mass/volume)Ordered By: Agustin Llanes on 03-22-2022 Glucose [Mass/Vol] 106 mg/dL 70-100 [facility] Comment on above: ADA recommended refe rence rangeRandom Glucose Reference Range is dependent on time and content of last meal. Glucose of more than 200 mg/dL in a nonstressed, ambulatory subject supports the diagnosis of Diabetes Mellitus. Serum or plasma non-glucuron idated bilirubin measurement (mass/volume)Ordered By: Agustin Llanes on 03-22-2022 Bilirubin.indirect [Mass/Vol] 0.2 mg/dL [facility] Serum or plasma potassium me asurement (moles/volume)Ordered By: Agustin Llanes on 03-22-2022 Potassium [Moles/Vol] 4.5 mmol/L 3.5-5.1 [facility] Serum or plasma sodium measu rement (moles/volume)Ordered By: Agustin Llanes on 03-22-2022 Sodium [Moles/Vol] 138 mmol/L 136-146 [facility] Serum or plasma total biliru bin measurement (mass/volume)Ordered By: Agustin Llanes on 03-22-2022 Bilirubin [Mass/Vol] 0.5 mg/dL 0.3-1.2 [facility] Serum or plasma total carbon dioxide measurement (moles/volume)Ordered By: Agustin Llanes on 03-22-2022 CO2 [Moles/Vol] 26.9 mmol/L 22.0-30.0 [facility] Serum or plasma urea nitroge n measurement (mass/volume)Ordered By: Agustin Llanes on 03-22-2022 Urea nitrogen [Mass/Vol] 8 mg/dL 9- [facility] Specific gravity Auto test s trip (U) [Rel density]Ordered By: Agustin Llanes on 03-22-2022 Specific gravity (U) [Rel density] 1.011 1.001-1.03 0 [facility] Squamous epithelial cells de tection in urine sediment by light microscopyOrdered By: Agustin Llanes on 03-22-2022 Epithelial cells.squamous LM Ql (Urine sed) 1-2 [HPF] 0-2 [facility] Urine bacteria detection by automated methodOrdered By: Agustin Llanes on 03-22-2022 Bacteria Auto Ql (U) 1+ None Seen [facility] Urine clarity by refractomet ry automatedOrdered By: Agustin Llanes on 03-22-2022 Clarity Refractometry automated (U) Clear Clear [facility] Urine glucose measurement by automated test strip (mass/volume)Ordered By: Agustin Llanes on 03-22-2022 Glucose Auto test strip (U) [Mass/Vol] Normal mg/dL Normal [facility] Urine hemoglobin detection b y automated test stripOrdered By: Agustin Llanes on 03-22-2022 Hemoglobin Auto test strip Ql (U) Negative Negative [facility] Urine leukocyte esterase det ection by automated test stripOrdered By: Agustin Llanes on 03-22-2022 Leukocyte esterase Auto test strip Ql (U) 2+ Negative [facility] Urobilinogen Auto test strip (U) [Mass/Vol]Ordered By: Agustin Llanes on 03-22-2022 Urobilinogen (U) [Mass/Vol] Normal mg/dL Normal [facility] WBC Auto (Bld) [#/Vol]Ordere d By: Agustin Llanes on 03-22-2022 WBC (Bld) [#/Vol] 12.4 10*3/uL 3.8-11.6 [facility] pH Auto test strip (U)Ordere d By: Agustin Llanes on 03-22-2022 pH (U) 5.5 [pH] 5.0-9.0 [facility] AMYLASEon 03-19-2022 Amylase [Catalytic activity/Vol] 297 U/L Critically high 25-115 [facility] Comment on above: Performed By: #### L IPA, CMP, CRP, NAT #### [facility] [address] [place] [address] Dr. Keturah Fisher CBC AUTO DIFFon 03-19-2022 BASO # 0.1 103/ul Normal 0.0-0.1 [facility] Comment on above: Performed By: #### L IPA, CMP, CRP, NAT #### [facility] [address] [place] [address] Dr. Keturah Fisher Basophils/100 WBC (Bld) 0.6 % Normal 0.2-2.0 [facility] Comment on above: Performed By: #### L IPA, CMP, CRP, NAT #### [facility] [address] [address] [address] Keturah Fisher EO # 0.1 103/ul Normal 0.0-0.7 [facility] Comment on above: Performed By: #### L IPA, CMP, CRP, NAT #### [facility] [address] [place] [address] Dr. Keturah Fisher Eosinophils/100 WBC (Bld) 0.5 % Critically low 0.9-7.0 [facility] Comment on above: Performed By: #### L IPA, CMP, CRP, NAT #### [facility] [address] [address] [address] Keturah Fisher Erythrocyte distribution width (RBC) [Ratio] 13.4 % Normal 11.0-15.0 [facility] Comment on above: Performed By: #### L IPA, CMP, CRP, NAT #### [facility] [address] [place] [address] Dr. Keturah Fisher Hemoglobin (Bld) [Mass/Vol] 15.7 g/dL Normal 12.0-16.0 [facility] Comment on above: Performed By: #### L IPA, CMP, CRP, NAT #### [facility] [address] [place] [address] Dr. Keturah Fisher IG # 0.06 10e3/ul Critically high 0.00-0.03 [facility] Comment on above: Performed By: #### L IPA, CMP, CRP, NAT #### [facility] [address] [place] [address] Dr. Keturah Fisher IG % 0.4 % Normal 0.0-0.5 [facility] Comment on above: Performed By: #### L IPA, CMP, CRP, NAT #### [facility] [address] [place] [address] Dr. Keturah Fisher LYMPH # 2.6 103/ul Normal 1.2-3.8 [facility] Comment on above: Performed By: #### L IPA, CMP, CRP, NAT #### [facility] [address] [place] [address] Dr. Keturah Fisher Lymphocytes/100 WBC (Bld) 18.1 % Critically low 20.5-60.0 [facility] Comment on above: Performed By: #### L IPA, CMP, CRP, NAT #### [facility] [address] [place] [address] Dr. Keturah Fisher MANUAL DIFF REQ NO Normal [facility] Comment on above: Performed By: #### L IPA, CMP, CRP, NAT #### [facility] [address] [place] [address] Dr. Keturah Fisher MCH (RBC) [Entitic mass] 32.4 pg Normal 26.7-34.0 [facility] Comment on above: Performed By: #### L IPA, CMP, CRP, NAT #### [facility] [address] [place] [address] Dr. Keturah Fisher MCHC (RBC) [Mass/Vol] 32.5 g/dL Normal 29.9-35.2 [facility] Comment on above: Performed By: #### L IPA, CMP, CRP, NAT #### [facility] [address] [place] [address] Dr. Keturah Fisher MCV (RBC) [Entitic vol] 99.8 fL Critically high 81.0-99.0 [facility] Comment on above: Performed By: #### L IPA, CMP, CRP, NAT #### [facility] [address] [place] [address] Dr. Keturah Fisher MONO # 0.9 103/ul Critically high 0.3-0.8 [facility] Comment on above: Performed By: #### L IPA, CMP, CRP, NAT #### [facility] [address] [place] [address] Dr. Keturah Fisher Monocytes/100 WBC (Bld) 5.9 % Normal 1.7-12.0 [facility] Comment on above: Performed By: #### L IPA, CMP, CRP, NAT #### [facility] [address] [place] [address] Dr. Keturah Fisher NEUT # 10.8 103/ul Critically high 1.4-6.5 [facility] Comment on above: Performed By: #### L IPA, CMP, CRP, NAT #### [facility] [address] [place] [address] Dr. Keturah Fisher Neutrophils/100 WBC (Bld) 74.5 % Normal 43.0-75.0 [facility] Comment on above: Performed By: #### L IPA, CMP, CRP, NAT #### [facility] [address] [place] [address] Dr. Keturah Fisher Platelet mean volume (Bld) [Entitic vol] 9.7 fL Normal 9.5-13.5 [facility] Comment on above: Performed By: #### L IPA, CMP, CRP, NAT #### [facility] [address] [place] [address] Dr. Keturah Fisher PLT 279 103/ul Normal 150-450 [facility] Comment on above: Performed By: #### L IPA, CMP, CRP, NAT #### [facility] [address] [place] [address] Dr. Keturah Fisher RBC 4.84 106/ul Normal 4.20-5.40 [facility] Comment on above: Performed By: #### L IPA, CMP, CRP, NAT #### [facility] [address] [place], [place] [address] Dr. Keturah Fisher WBC 14.5 103/ul Critically high 4.0-11.0 [facility] Comment on above: Performed By: #### L IPA, CMP, CRP, NAT #### [facility] [address] [place], [place] [address] ABD/PELVIS WO CONon [...] by: AGUSTIN HIGHTOWER Date: 2022-03-19 19:10 Normal [facility] LIPASEon 03-19-2022 Lipase [Catalytic activity/Vol] 1573.0 U/L Critically high 73.0-393.0 [facility] Comment on above: Performed By: #### L IPA, CMP, CRP, NAT #### [facility] [address] [address] [address] Keturah Fisher PROF 14(COMP METB)on 023 Albumin [Mass/Vol] 4.3 g/dL Normal 3.4-5.0 [facility] Comment on above: Performed By: #### L IPA, CMP, CRP, NAT #### [facility] [address] [place] [address] Dr. Keturah Fisher Albumin/Globulin [Mass ratio] 1.1 {ratio} Normal [facility] Comment on above: Performed By: #### L IPA, CMP, CRP, NAT #### [facility] [address] [place] [address] Dr. Keturah Fisher ALP [Catalytic activity/Vol] 222 U/L Critically high 46-116 [facility] Comment on above: Performed By: #### L IPA, CMP, CRP, NAT #### [facility] [address] [place] [address] Dr. Keturah Fisher ALT [Catalytic activity/Vol] 18 U/L Normal 14-59 [facility] Comment on above: Performed By: #### L IPA, CMP, CRP, NAT #### [facility] [address] [place] [address] Dr. Keturah Fisher Anion gap [Moles/Vol] 10.7 mmol/L Normal [facility] Comment on above: Performed By: #### L IPA, CMP, CRP, NAT #### [facility] [address] [address] [address] Keturah Fisher AST [Catalytic activity/Vol] 19 U/L Normal 15-37 [facility] Comment on above: Performed By: #### L IPA, CMP, CRP, NAT #### [facility] [address] [place] [address] Dr. Keturah Fisher Bilirubin [Mass/Vol] 0.2 mg/dL Normal 0.2-1.0 [facility] Comment on above: Performed By: #### L IPA, CMP, CRP, NAT #### [facility] [address] [address] [address] Keturah Fisher Calcium [Mass/Vol] 10.2 mg/dL Critically high 8.5-10.1 [facility] Comment on above: Performed By: #### L IPA, CMP, CRP, NAT #### [facility] [address] [place] [address] Dr. Keturah Fisher Chloride [Moles/Vol] 101 mmol/L Normal 98-107 [facility] Comment on above: Performed By: #### L IPA, CMP, CRP, NAT #### [facility] [address] [place] [address] Dr. Keturah Fisher CO2 [Moles/Vol] 29.1 mmol/L Normal 21.0-32.0 [facility] Comment on above: Performed By: #### L IPA, CMP, CRP, NAT #### [facility] [address] [place] [address] Dr. Keturah Fisher Creatinine [Mass/Vol] 0.73 mg/dL Normal 0.55-1.02 [facility] Comment on above: Performed By: #### L IPA, CMP, CRP, NAT #### [facility] [address] [place] [address] Dr. Keturah Fisher EGFR-AF NIGERIEN >60 Normal >=60 [facility] Comment on above: Performed By: #### L IPA, CMP, CRP, NAT #### [facility] [address] [place] [address] Dr. Keturah Fisher EGFR-NON AF NIGERIEN >60 Normal >=60 [facility] Comment on above: Performed By: #### L IPA, CMP, CRP, NAT #### [facility] [address] [address] [address] Keturah Fisher Globulin (S) [Mass/Vol] 4.0 g/dL Normal [facility] Comment on above: Performed By: #### L IPA, CMP, CRP, NAT #### [facility] [address] [address] [address] Keturah Fisher Glucose [Mass/Vol] 92 mg/dL Normal 74-106 [facility] Comment on above: Performed By: #### L IPA, CMP, CRP, NAT #### [facility] [address] [address] [address] Keturah Fisher Potassium [Moles/Vol] 3.8 mmol/L Normal 3.5-5.1 [facility] Comment on above: Performed By: #### L IPA, CMP, CRP, NAT #### [facility] [address] [address] [address] Keturah Fisher Protein [Mass/Vol] 8.3 g/dL Critically high 6.4-8.2 [facility] Comment on above: Performed By: #### L IPA, CMP, CRP, NAT #### [facility] [address] [address] [address] Keturah Fisher Sodium [Moles/Vol] 137 mmol/L Normal 136-145 [facility] Comment on above: Performed By: #### L IPA, CMP, CRP, NAT #### [facility] [address] [address] [address] Keturah Fisher Urea nitrogen [Mass/Vol] 10.0 mg/dL Normal 7.0-18.0 [facility] Comment on above: Performed By: #### L IPA, CMP, CRP, NAT #### [facility] [address] [address] [address] Keturah Fisher Urea nitrogen/Creatinine [Mass ratio] 13.7 mg/mg Normal [facility] Comment on above: Performed By: #### L IPA, CMP, CRP, NAT #### [facility] [address] [address] [address] Keturah Fisher PROTIMEon 03-19-2022 INR Coag (PPP) [Relative time] {INR} Normal [facility] Comment on above: Performed By: #### P TT, PT ####[facility] [id number] [address]Dr. Keturah Fisher INR GUIDELINES SEE BELOW Normal [facility] Comment on above: Result Comment: KARLY RED INR: 2.0 - 3.0 CONDITIONS NOT LISTED BELOW 2.5 - 3.5 FOR PROSTHETIC HEART VALVE REPLACEMENT 2.5 - 3.5 RECURRENT THROMBOSIS Performed By: #### P TT, PT ####[facility] [id number] [address]DrGopal Fisher PT Coag (PPP) [Time] 9.4 s Normal 9.0-11.6 [facility] Comment on above: Performed By: #### P TT, PT ####[facility] [id number] [address]DrGopal Fisher PTTon 03-19-2022 aPTT Coag (Bld) [Time] 26.1 s Normal 22.3-36.2 Th [facility] Comment on above: Performed By: #### P TT, PT ####[facility] [id number] [address]Dr. Keturah Fisher TROPONIN, HIGH SENSITIVITYon 03-19-2022 HSTROP 4.0 pg/mL Normal 4.0-51.3 [facility] Comment on above: Result Comment: CUT- OFF POINTS HAVE BEEN ESTABLISHED BASED ON THE FOURTH UNIVERSAL DEFINITIONS OF MYOCARDIAL INFARCTION. THE UPPER REFERENCE LIMIT (URL) OF TROPONIN, DEFINED THE 99TH PERCENTILE OF cTnI DISTRIBUTION IN A REFERENCE POPULATION, HAS BEEN CONFIRMED THE DECISION THRESHOLD FOR [place] DIAGNOSIS. Performed By: #### L IPA, CMP, CRP, NAT #### [facility] [address] [address] [address] 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 Mental Status [...] si (more content not included)... LAB, [facility] Radiology Study observation (narrative) [facility] BONE DENSITY AXIAL (HIP, PEL VIS, SPINE)on 01-27-2022 IMPRESSION: Based on BMD and WHO criteria [...] interpreted this study is a Certified Clinical Website Optimization Strategist by the International Society of Clinical Densitometry Maulik Reed M.D., CCD. OLOGY EXAM: BONE DENSITY A XIAL (HIP, PELVIS, SPINE) 01/27/2022 15:34 PM TECHNIQUE: DXA scanning using a [employer] Pro[employer] Advance bone densitometer at the [facility] was performed on 01/27/2022 15:34 PM CLINICAL [...] 15:34 PM TECHNIQUE: DXA scanning using a [employer] Pro[employer] Advance bone densitometer at the [facility] was performed on 01/27/2022 15:34 PM CLINICAL [...] interpreted this study is a Certified Clinical Website Optimization Strategist by the International Society of Clinical Densitometry Maulik Reed M.D., CCD. [facility] Radiology Study observation (narrative) [facility] BONE DENSITY AXIAL (HIP, PEL VIS, SPINE)Ordered By: Maulik Reed on 01-27-2022 [facility] Work Phone: CBC AUTO DIFFon 01-15-2022 BASO # 0.1 103/ul Normal 0.0-0.1 The [facility] Comment on above: Performed By: #### C BC ####[facility] [address] [place], [place] [address]CdGopal Rebollar Fisher Basophils/100 WBC (Bld) 0.9 % Normal 0.2-2.0 The [facility] Comment on above: Performed By: #### C BC ####[facility] [address] [place] [id number]. Keturah Fisher EO # 0.2 103/ul Normal 0.0-0.7 The [facility] Comment on above: Performed By: #### C BC ####[facility] [address] [place] [id number]. Keturah Fisher Eosinophils/100 WBC (Bld) 2.8 % Normal 0.9-7.0 The [facility] Comment on above: Performed By: #### C BC ####[facility] [address] [place], [place] [address]Dr. Keturah Fisher Erythrocyte distribution width (RBC) [Ratio] 12.9 % Normal 11.0-15.0 The [facility] Comment on above: Performed By: #### C BC ####[facility] [address] [place], [place] [address]Dr. Keturah Fisher Hematocrit (Bld) [Volume fraction] 41.7 % Normal 36.0-48.0 The [facility] Comment on above: Performed By: #### C BC ####[facility] [address] [place], [place] [address]Dr. Keturah Fisher Hemoglobin (Bld) [Mass/Vol] 14.0 g/dL Normal 12.0-16.0 The [facility] Comment on above: Performed By: #### C BC ####[facility] [address] [place], [place] [address]Dr. Keturah Fisher IG # 0.01 10e3/ul Normal 0.00-0.03 The [facility] Comment on above: Performed By: #### C BC ####[facility] [address] [place], [place] [address]Dr. Keturah Fisher IG % 0.1 % Normal 0.0-0.5 The [facility] Comment on above: Performed By: #### C BC ####[facility] [address] [place], [place] [address]Dr. Keturah Fisher LYMPH # 2.4 103/ul Normal 1.2-3.8 The [facility] Comment on above: Performed By: #### C BC ####[facility] [address] [place] [id number]. Keturah Fisher Lymphocytes/100 WBC (Bld) 32.0 % Normal 20.5-60.0 The [facility] Comment on above: Performed By: #### C BC ####[facility] [address] [place] [id number]. Keturah Phillip MANUAL DIFF REQ NO Normal The [facility] Comment on above: Performed By: #### C BC ####[facility] [address] [place] [id number]. Keturah Phillip MCH (RBC) [Entitic mass] 32.6 pg Normal 26.7-34.0 The [facility] Comment on above: Performed By: #### C BC ####[facility] [address] [place] [id number]. Keturah Fisher MCHC (RBC) [Mass/Vol] 33.6 g/dL Normal 29.9-35.2 The [facility] Comment on above: Performed By: #### C BC ####[facility] [address] [place] [id number]. Keturah Phillip MCV (RBC) [Entitic vol] 97.0 fL Normal 81.0-99.0 The [facility] Comment on above: Performed By: #### C BC ####[facility] [address] [place] [id number]. Keturah Phillip MONO # 0.7 103/ul Normal 0.3-0.8 The [facility] Comment on above: Performed By: #### C BC ####[facility] [address] [place] [id number]. Keturah Phillip Monocytes/100 WBC (Bld) 9.5 % Normal 1.7-12.0 The [facility] Comment on above: Performed By: #### C BC ####[facility] [address] [place] [id number]. Keturah Fisher NEUT # 4.1 103/ul Normal 1.4-6.5 The [facility] Comment on above: Performed By: #### C BC ####[facility] [address] [place] [address]Dr. Keturah Fisher Neutrophils/100 WBC (Bld) 54.7 % Normal 43.0-75.0 The [facility] Comment on above: Performed By: #### C BC ####[facility] [address] [place] [address]Dr. Keturah Fisher Platelet mean volume (Bld) [Entitic vol] 9.6 fL Normal 9.5-13.5 The [facility] Comment on above: Performed By: #### C BC ####[facility] [address] [place] [address]Dr. Keturah Fisher PLT 235 103/ul Normal 150-450 The [facility] Comment on above: Performed By: #### C BC ####[facility] [address] [place] [address]Dr. Keturah Fisher RBC 4.30 106/ul Normal 4.20-5.40 The [facility] Comment on above: Performed By: #### C BC ####[facility] [address] [place] [address]Dr. Keturah Fisher WBC 7.6 103/ul Normal 4.0-11.0 The [facility] Comment on above: Performed By: #### C BC ####[facility] [address] [place] [address]DrGopal Fisher ER URINE PROFILEon 2 Bilirubin Ql (U) Negative Normal NEGATIVE The [facility] Comment on above: Performed By: #### L IPA, CMP, CRP, NAT #### [facility] Laboratory [address] [place] [address] Dr. Keturah Fisher Clarity (U) CLEAR Normal CLEAR The [facility] Comment on above: Performed By: #### L IPA, CMP, CRP, NAT #### [facility] Laboratory [address] [place] [address] Dr. Keturah Fisher Color (U) YELLOW Normal YELLOW The [facility] Comment on above: Performed By: #### L IPA, CMP, CRP, NAT #### [facility] Laboratory [address] [place] [address] Dr. Keturah BAH A micrscopic examina tion will be performed if indicated. Normal The [facility] Comment on above: Performed By: #### L IPA, CMP, CRP, NAT #### [facility] Laboratory [address] [place] [address] [address] Keturah Fisher Glucose Ql (U) Negative Normal NEGATIVE [facility] Comment on above: Performed By: #### L IPA, CMP, CRP, NAT #### [facility] [address] [address] [address] Keturah Fisher Hemoglobin Ql (U) Negative Normal NEGATIVE [facility] Comment on above: Performed By: #### L IPA, CMP, CRP, NAT #### [facility] [address] [place] [address] Dr. Keturah Fisher Ketones Ql (U) Negative Normal NEGATIVE [facility] Comment on above: Performed By: #### L IPA, CMP, CRP, NAT #### [facility] [address] [place] [address] Dr. Keturah Fisher LEUKOCYTES Negative Normal NEGATIVE [facility] Comment on above: Performed By: #### L IPA, CMP, CRP, NAT #### [facility] [address] [place] [address] Dr. Keturah Fisher Nitrite Ql (U) Negative Normal NEGATIVE [facility] Comment on above: Performed By: #### L IPA, CMP, CRP, NAT #### [facility] [address] [place] [address] Dr. Keturah Fisher pH (U) 5.5 [pH] Normal 5-9 [facility] Comment on above: Performed By: #### L IPA, CMP, CRP, NAT #### [facility] [address] [address] [address] Keturah Fisher SPEC GRAVITY >=1.030 Abnormal 1.005-<=1. 025 [facility] Comment on above: Performed By: #### L IPA, CMP, CRP, NAT #### [facility] [address] [place] [address] Dr. Keturah Fisher UA PROTEIN Negative Normal NEGATIVE/ TRACE The [facility] Comment on above: Performed By: #### L IPA, CMP, CRP, NAT #### [facility] [address] [place] [address] Dr. Keturah Fisher UR MICRO IND NOT INDICATED Normal The [facility] Comment on above: Performed By: #### L IPA, CMP, CRP, NAT #### [facility] [address] [place] [address] Dr. Keturah Fisher Urobilinogen Qn (U) 0.2 {Marizol'U}/dL Normal 0.2 - 1. 0 [facility] Comment on above: Performed By: #### L IPA, CMP, CRP, NAT #### [facility] [address] [place] [address] Dr. Keturah Fisher LIPASEon 01-15-2022 Lipase [Catalytic activity/Vol] 572.0 U/L Critically high 73.0-393.0 [facility] Comment on above: Performed By: #### C BC #### [facility] [address] [place] [address] Dr. Keturah Fisher URon 01-15-2022 , QUAL Negative Normal NEGATIVE The [facility] Comment on above: Performed By: #### L IPA, CMP, CRP, NAT #### [facility] [address] [place] [address] Dr. Keturah Fisher PROF 14(COMP METB)on 022 Albumin [Mass/Vol] 3.8 g/dL Normal 3.4-5.0 [facility] Comment on above: Performed By: #### C BC #### [facility] [address] [place] [address] Dr. Keturah Fisher Albumin/Globulin [Mass ratio] 1.1 {ratio} Normal [facility] Comment on above: Performed By: #### C BC #### [facility] [address] [place] [address] Dr. Keturah Fisher ALP [Catalytic activity/Vol] 151 U/L Critically high 46-116 [facility] Comment on above: Performed By: #### C BC #### [facility] [address] [place] [address] Dr. Keturah Fisher ALT [Catalytic activity/Vol] 14 U/L Normal 14-59 [facility] Comment on above: Performed By: #### C BC #### [facility] [address] [place] [address] Dr. Keturah Fisher Anion gap [Moles/Vol] 5.5 mmol/L Normal [facility] Comment on above: Performed By: #### C BC #### [facility] [address] [address] [address] Keturah Fisher AST [Catalytic activity/Vol] 16 U/L Normal 15-37 [facility] Comment on above: Performed By: #### C BC #### [facility] [address] [place] [address] Dr. Keturah Fisher Bilirubin [Mass/Vol] 0.1 mg/dL Critically low 0.2-1.0 [facility] Comment on above: Performed By: #### C BC #### [facility] [address] [place] [address] Dr. Keturah Fisher Calcium [Mass/Vol] 9.5 mg/dL Normal 8.5-10.1 [facility] Comment on above: Performed By: #### C BC #### [facility] [address] [place] [address] Dr. Keturah Fisher Chloride [Moles/Vol] 105 mmol/L Normal 98-107 The [facility] Comment on above: Performed By: #### C BC #### [facility] [address] [place] [address] Dr. Keturah Fisher CO2 [Moles/Vol] 30.0 mmol/L Normal 21.0-32.0 The [facility] Comment on above: Performed By: #### C BC #### [facility] [address] [place] [address] Dr. Keturah Fisher Creatinine [Mass/Vol] 0.90 mg/dL Normal 0.55-1.02 [facility] Comment on above: Performed By: #### C BC #### [facility] [address] [place] [address] Dr. Keturah Fisher EGFR-AF NIGERIEN >60 Normal >=60 The [facility] Comment on above: Performed By: #### C BC #### [facility] [address] [place] [address] [address] Keturah Fisher EGFR-NON AF NIGERIEN >60 Normal >=60 [facility] Comment on above: Performed By: #### C BC #### [facility] [address] [place] [address] [address] Keturah Fisher Globulin (S) [Mass/Vol] 3.4 g/dL Normal [facility] Comment on above: Performed By: #### C BC #### [facility] [address] [place] [address] [address] Keturah Fisher Glucose [Mass/Vol] 82 mg/dL Normal 74-106 [facility] Comment on above: Performed By: #### C BC #### [facility] [address] [place] [address] Dr. Keturah Fisher Potassium [Moles/Vol] 3.5 mmol/L Normal 3.5-5.1 [facility] Comment on above: Performed By: #### C BC #### [facility] [address] [place] [address] Dr. Keturah Fisher Protein [Mass/Vol] 7.2 g/dL Normal 6.4-8.2 The [facility] Comment on above: Performed By: #### C BC #### [facility] [address] [place] [address] Dr. Keturah Fisher Sodium [Moles/Vol] 137 mmol/L Normal 136-145 The [facility] Comment on above: Performed By: #### C BC #### [facility] [address] [place] [address] Dr. Keturah Fisher Urea nitrogen [Mass/Vol] 12.0 mg/dL Normal 7.0-18.0 [facility] Comment on above: Performed By: #### C BC #### [facility] [address] [place] [address] Dr. Keturah Fisher Urea nitrogen/Creatinine [Mass ratio] 13.3 mg/mg Normal [facility] Comment on above: Performed By: #### C BC #### [facility] [address] [place] [address] Dr. Keturah Fisher AMYLASEon 12-13-2021 Amylase [Catalytic activity/Vol] 268 U/L Critically high 25-115 The [facility] Comment on above: Performed By: #### L IPA, CMP, CRP, NAT #### [facility] [address] [place] [address] Dr. Keturah Fisher CBC AUTO DIFFon 12-13-2021 BASO # 0.1 103/ul Normal 0.0-0.1 [facility] Comment on above: Performed By: #### L IPA, CMP, CRP, NAT #### [facility] [address] [place] [address] Dr. Keturah Fisher Basophils/100 WBC (Bld) 0.6 % Normal 0.2-2.0 [facility] Comment on above: Performed By: #### L IPA, CMP, CRP, NAT #### [facility] [address] [place] [address] Dr. Keturah Fisher EO # 0.1 103/ul Normal 0.0-0.7 The [facility] Comment on above: Performed By: #### L IPA, CMP, CRP, NAT #### [facility] [address] [place] [address] Dr. Keturah Fisher Eosinophils/100 WBC (Bld) 1.2 % Normal 0.9-7.0 [facility] Comment on above: Performed By: #### L IPA, CMP, CRP, NAT #### [facility] [address] [place] [address] Dr. Keturah Fisher Erythrocyte distribution width (RBC) [Ratio] 13.2 % Normal 11.0-15.0 [facility] Comment on above: Performed By: #### L IPA, CMP, CRP, NAT #### [facility] [address] [place] [address] Dr. Keturah Fisher Hematocrit (Bld) [Volume fraction] 44.7 % Normal 36.0-48.0 [facility] Comment on above: Performed By: #### L IPA, CMP, CRP, ANT #### [facility] [address] [place] [address] Dr. Keturah Fisher Hemoglobin (Bld) [Mass/Vol] 14.7 g/dL Normal 12.0-16.0 The [facility] Comment on above: Performed By: #### L IPA, CMP, CRP, NAT #### [facility] [address] [place] [address] Dr. Keturah Fisher IG # 0.03 10e3/ul Normal 0.00-0.03 [facility] Comment on above: Performed By: #### L IPA, CMP, CRP, NAT #### [facility] [address] [place] [address] Dr. Keturah Fisher IG % 0.3 % Normal 0.0-0.5 [facility] Comment on above: Performed By: #### L IPA, CMP, CRP, NAT #### [facility] [address] [place] [address] Dr. Keturah Fisher LYMPH # 3.6 103/ul Normal 1.2-3.8 [facility] Comment on above: Performed By: #### L IPA, CMP, CRP, NAT #### [facility] [address] [place] [address] Dr. Keturah Fisher Lymphocytes/100 WBC (Bld) 32.7 % Normal 20.5-60.0 The [facility] Comment on above: Performed By: #### L IPA, CMP, CRP, NAT #### [facility] [address] [place] [address] Dr. Keturah Fisher MANUAL DIFF REQ NO Normal The [facility] Comment on above: Performed By: #### L IPA, CMP, CRP, NAT #### [facility] [address] [place] [address] Dr. Keturah Fisher MCH (RBC) [Entitic mass] 32.2 pg Normal 26.7-34.0 [facility] Comment on above: Performed By: #### L IPA, CMP, CRP, NAT #### [facility] [address] [place] [address] Dr. Keturah Fihser MCHC (RBC) [Mass/Vol] 32.9 g/dL Normal 29.9-35.2 The [facility] Comment on above: Performed By: #### L IPA, CMP, CRP, NAT #### [facility] [address] [place] [address] Dr. Keturah Fisher MCV (RBC) [Entitic vol] 98.0 fL Normal 81.0-99.0 [facility] Comment on above: Performed By: #### L IPA, CMP, CRP, NAT #### [facility] [address] [place] [address] Dr. Keturah Fisher MONO # 1.1 103/ul Critically high 0.3-0.8 The [facility] Comment on above: Performed By: #### L IPA, CMP, CRP, NAT #### [facility] [address] [place] [address] Dr. Keturah Fisher Monocytes/100 WBC (Bld) 9.7 % Normal 1.7-12.0 [facility] Comment on above: Performed By: #### L IPA, CMP, CRP, NAT #### [facility] [address] [place] [address] Dr. Keturah Fisher NEUT # 6.1 103/ul Normal 1.4-6.5 The [facility] Comment on above: Performed By: #### L IPA, CMP, CRP, NAT #### [facility] [address] [place] [address] Dr. Keturah Fisher Neutrophils/100 WBC (Bld) 55.5 % Normal 43.0-75.0 The [facility] Comment on above: Performed By: #### L IPA, CMP, CRP, NAT #### [facility] [address] [place] [address] Dr. Keturah Fisher Platelet mean volume (Bld) [Entitic vol] 9.7 fL Normal 9.5-13.5 The [facility] Comment on above: Performed By: #### L IPA, CMP, CRP, NAT #### [facility] [address] [place] [address] Dr. Keturah Fisher PLT 274 103/ul Normal 150-450 The [facility] Comment on above: Performed By: #### L IPA, CMP, CRP, NAT #### [facility] [address] [place], [place] [address] Dr. Keturah Fisher RBC 4.56 106/ul Normal 4.20-5.40 [facility] Comment on above: Performed By: #### L IPA, CMP, CRP, NAT #### [facility] [address] [place], [place] [address] Dr. Keturah Fisher WBC 10.9 103/ul Normal 4.0-11.0 [facility] Comment on above: Performed By: #### L IPA, CMP, CRP, NAT #### [facility] [address] [place], [place] [address] Dr. Keturah Fisher CRPon 12-13-2021 CRP [Mass/Vol] mg/L Normal <=1.0 [facility] Comment on above: Performed By: #### L IPA, CMP, CRP, NAT #### [facility] [address] [address] [address] ABD/PELV W CONon 12-14-19 CT ABD/PELV W CON EXAMINATION: CT ABD/ PELV W CON HISTORY: Pancreatitis COMPARISON: 08/13/2021 TECHNIQUE: [...] by: AGUSTIN HIGHTOWER Date: 2021-12-13 20:50 Normal [facility] LIPASEon 12-13-2021 Lipase [Catalytic activity/Vol] 1496.0 U/L Critically high 73.0-393.0 [facility] Comment on above: Performed By: #### L IPA, CMP, CRP, NAT #### [facility] [address] [place] [address] Dr. Keturah Fisher PROF 14(COMP METB)on 022 Albumin [Mass/Vol] 4.0 g/dL Normal 3.4-5.0 [facility] Comment on above: Performed By: #### L IPA, CMP, CRP, NAT #### [facility] [address] [place] [address] Dr. Keturah Fisher Albumin/Globulin [Mass ratio] 1.0 {ratio} Normal [facility] Comment on above: Performed By: #### L IPA, CMP, CRP, NAT #### [facility] [address] [place] [address] Dr. Keturah Fisher ALP [Catalytic activity/Vol] 166 U/L Critically high 46-116 The [facility] Comment on above: Performed By: #### L IPA, CMP, CRP, NAT #### [facility] [address] [place] [address] Dr. Keturah Fisher ALT [Catalytic activity/Vol] 19 U/L Normal 14-59 [facility] Comment on above: Performed By: #### L IPA, CMP, CRP, NAT #### [facility] [address] [place] [address] Dr. Keturah Fisher Anion gap [Moles/Vol] 9.5 mmol/L Normal [facility] Comment on above: Performed By: #### L IPA, CMP, CRP, NAT #### [facility] [address] [address] [address] Keturah Fisher AST [Catalytic activity/Vol] 16 U/L Normal 15-37 [facility] Comment on above: Performed By: #### L IPA, CMP, CRP, NAT #### [facility] [address] [address] [address] Keturah Fisher Bilirubin [Mass/Vol] 0.1 mg/dL Critically low 0.2-1.0 [facility] Comment on above: Performed By: #### L IPA, CMP, CRP, NAT #### [facility] [address] [place] [address] Dr. Keturah Fisher Calcium [Mass/Vol] 9.6 mg/dL Normal 8.5-10.1 [facility] Comment on above: Performed By: #### L IPA, CMP, CRP, NAT #### [facility] [address] [place] [address] Dr. Keturah Fisher Chloride [Moles/Vol] 104 mmol/L Normal 98-107 The [facility] Comment on above: Performed By: #### L IPA, CMP, CRP, NAT #### [facility] [address] [place] [address] Dr. Keturah Fisher CO2 [Moles/Vol] 29.7 mmol/L Normal 21.0-32.0 The [facility] Comment on above: Performed By: #### L IPA, CMP, CRP, NAT #### [facility] [address] [place] [address] Dr. Keturah Fisher Creatinine [Mass/Vol] 0.85 mg/dL Normal 0.55-1.02 The [facility] Comment on above: Performed By: #### L IPA, CMP, CRP, NAT #### [facility] [address] [address] [address] Keturah Fisher EGFR-AF NIGERIEN >60 Normal >=60 The [facility] Comment on above: Performed By: #### L IPA, CMP, CRP, NAT #### [facility] [address] [address] [address] Keturah Fisher EGFR-NON AF NIGERIEN >60 Normal >=60 [facility] Comment on above: Performed By: #### L IPA, CMP, CRP, NAT #### [facility] [address] [address] [address] Keturah Fisher Globulin (S) [Mass/Vol] 3.9 g/dL Normal [facility] Comment on above: Performed By: #### L IPA, CMP, CRP, NAT #### [facility] [address] [address] [address] Ketruah Fisher Glucose [Mass/Vol] 70 mg/dL Critically low 74-106 [facility] Comment on above: Performed By: #### L IPA, CMP, CRP, NAT #### [facility] [address] [place] [address] Dr. Keturah Fisher Potassium [Moles/Vol] 3.2 mmol/L Critically low 3.5-5.1 [facility] Comment on above: Performed By: #### L IPA, CMP, CRP, NAT #### [facility] [address] [address] [address] Keturah Fisher Protein [Mass/Vol] 7.9 g/dL Normal 6.4-8.2 [facility] Comment on above: Performed By: #### L IPA, CMP, CRP, NAT #### [facility] [address] [address] [address] Keturah Fisher Sodium [Moles/Vol] 140 mmol/L Normal 136-145 [facility] Comment on above: Performed By: #### L IPA, CMP, CRP, NAT #### [facility] [address] [address] [address] Keturah Fisher Urea nitrogen [Mass/Vol] 8.0 mg/dL Normal 7.0-18.0 [facility] Comment on above: Performed By: #### L IPA, CMP, CRP, NAT #### [facility] [address] [address] [address] Keturah Fisher Urea nitrogen/Creatinine [Mass ratio] 9.4 mg/mg Normal The [facility] Comment on above: Performed By: #### L IPA, CMP, CRP, NAT #### [facility] [address] [place] [address] Dr. Keturah Fisher AMYLASEon 12-05-2021 Amylase [Catalytic activity/Vol] 223 U/L Critically high 25-115 The [facility] Comment on above: Performed By: #### L IPA, CMP, CRP, NAT #### [facility] [address] [place] [address] Dr. Keturah Fisher CBC AUTO DIFFon 12-05-2021 BASO # 0.1 103/ul Normal 0.0-0.1 The [facility] Comment on above: Performed By: #### C BC #### [facility] [address] [place] [address] Dr. Keturah Fisher Basophils/100 WBC (Bld) 0.7 % Normal 0.2-2.0 [facility] Comment on above: Performed By: #### C BC #### [facility] [address] [place] [address] Dr. Keturah Fisher EO # 0.2 103/ul Normal 0.0-0.7 The [facility] Comment on above: Performed By: #### C BC #### [facility] [address] [place] [address] Dr. Keturah Fisher Eosinophils/100 WBC (Bld) 1.7 % Normal 0.9-7.0 The [facility] Comment on above: Performed By: #### C BC #### [facility] [address] [place] [address] Dr. Keturah Fisher Erythrocyte distribution width (RBC) [Ratio] 13.0 % Normal 11.0-15.0 The [facility] Comment on above: Performed By: #### C BC #### [facility] [address] [place] [address] Dr. Keturah Fisher Hematocrit (Bld) [Volume fraction] 44.9 % Normal 36.0-48.0 [facility] Comment on above: Performed By: #### C BC #### [facility] [address] [place] [address] Dr. Keturah Fisher Hemoglobin (Bld) [Mass/Vol] 15.1 g/dL Normal 12.0-16.0 The [facility] Comment on above: Performed By: #### C BC #### [facility] [address] [place] [address] Dr. Keturah Fisher IG # 0.02 10e3/ul Normal 0.00-0.03 The [facility] Comment on above: Performed By: #### C BC #### [facility] [address] [place] [address] Dr. Keturah Fisher IG % 0.2 % Normal 0.0-0.5 [facility] Comment on above: Performed By: #### C BC #### [facility] [address] [place] [address] Dr. Keturah Fisher LYMPH # 2.8 103/ul Normal 1.2-3.8 The [facility] Comment on above: Performed By: #### C BC #### [facility] [address] [place] [address] Dr. Keturah Fisher Lymphocytes/100 WBC (Bld) 29.8 % Normal 20.5-60.0 The [facility] Comment on above: Performed By: #### C BC #### [facility] [address] [place] [address] Dr. Keturah Fisher MANUAL DIFF REQ NO Normal The [facility] Comment on above: Performed By: #### C BC #### [facility] [address] [place] [address] Dr. Keturah Fisher MCH (RBC) [Entitic mass] 32.4 pg Normal 26.7-34.0 The [facility] Comment on above: Performed By: #### C BC #### [facility] [address] [place] [address] Dr. Keturah Fisher MCHC (RBC) [Mass/Vol] 33.6 g/dL Normal 29.9-35.2 The [facility] Comment on above: Performed By: #### C BC #### [facility] [address] [place] [address] Dr. Keturah Fisher MCV (RBC) [Entitic vol] 96.4 fL Normal 81.0-99.0 [facility] Comment on above: Performed By: #### C BC #### [facility] [address] [place] [address] Dr. Keturah Fisher MONO # 0.6 103/ul Normal 0.3-0.8 The [facility] Comment on above: Performed By: #### C BC #### [facility] [address] [place] [address] Dr. Keturah Fisher Monocytes/100 WBC (Bld) 6.3 % Normal 1.7-12.0 The [facility] Comment on above: Performed By: #### C BC #### [facility] [address] [place] [address] Dr. Keturah Fisher NEUT # 5.7 103/ul Normal 1.4-6.5 The [facility] Comment on above: Performed By: #### C BC #### [facility] [address] [place] [address] Dr. Keturah Fisher Neutrophils/100 WBC (Bld) 61.3 % Normal 43.0-75.0 The [facility] Comment on above: Performed By: #### C BC #### [facility] [address] [place] [address] Dr. Keturah Fisher Platelet mean volume (Bld) [Entitic vol] 10.7 fL Normal 9.5-13.5 The [facility] Comment on above: Performed By: #### C BC #### [facility] [address] [place] [address] Dr. Keturah Fisher PLT 217 103/ul Normal 150-450 The [facility] Comment on above: Performed By: #### C BC #### [facility] [address] [place] [address] Dr. Keturah Fisher RBC 4.66 106/ul Normal 4.20-5.40 The [facility] Comment on above: Performed By: #### C BC #### [facility] [address] [place] [address] Dr. Keturah Fisher WBC 9.2 103/ul Normal 4.0-11.0 The [facility] Comment on above: Performed By: #### C BC #### [facility] [address] [address] [address] Keturah Fisher LIPASEon 12-05-2021 Lipase [Catalytic activity/Vol] 725.0 U/L Critically high 73.0-393.0 [facility] Comment on above: Performed By: #### L IPA, CMP, CRP, NAT #### [facility] [address] [place] [address] Dr. Keturah Fisher PROF 14(COMP METB)on 022 Albumin [Mass/Vol] 4.2 g/dL Normal 3.4-5.0 [facility] Comment on above: Performed By: #### L IPA, CMP, CRP, NAT #### [facility] [address] [place] [address] Dr. Keturah Fisher Albumin/Globulin [Mass ratio] 1.2 {ratio} Normal [facility] Comment on above: Performed By: #### L IPA, CMP, CRP, NAT #### [facility] [address] [place] [address] Dr. Keturah Fisher ALP [Catalytic activity/Vol] 158 U/L Critically high 46-116 [facility] Comment on above: Performed By: #### L IPA, CMP, CRP, NAT #### [facility] [address] [place] [address] Dr. Keturah Fisher ALT [Catalytic activity/Vol] 20 U/L Normal 14-59 [facility] Comment on above: Performed By: #### L IPA, CMP, CRP, NAT #### [facility] [address] [place] [address] Dr. Keturah Fisher Anion gap [Moles/Vol] 14.0 mmol/L Normal [facility] Comment on above: Performed By: #### L IPA, CMP, CRP, NAT #### [facility] [address] [place] [address] Dr. Keturah Fisher AST [Catalytic activity/Vol] 27 U/L Normal 15-37 [facility] Comment on above: Performed By: #### L IPA, CMP, CRP, NAT #### [facility] [address] [address] [address] Keturah Fisher Bilirubin [Mass/Vol] 0.3 mg/dL Normal 0.2-1.0 [facility] Comment on above: Performed By: #### L IPA, CMP, CRP, NAT #### [facility] [address] [place] [address] Dr. Keturah Fisher Calcium [Mass/Vol] 10.1 mg/dL Normal 8.5-10.1 [facility] Comment on above: Performed By: #### L IPA, CMP, CRP, NAT #### [facility] [address] [address] [address] Keturah Fisher Chloride [Moles/Vol] 105 mmol/L Normal 98-107 [facility] Comment on above: Performed By: #### L IPA, CMP, CRP, NAT #### [facility] [address] [place] [address] Dr. Keturah Fisher CO2 [Moles/Vol] 24.9 mmol/L Normal 21.0-32.0 [facility] Comment on above: Performed By: #### L IPA, CMP, CRP, NAT #### [facility] [address] [place] [address] Dr. Keturah Fisher Creatinine [Mass/Vol] 0.77 mg/dL Normal 0.55-1.02 [facility] Comment on above: Performed By: #### L IPA, CMP, CRP, NAT #### [facility] [address] [place] [address] Dr. Keturah Fisher EGFR-AF NIGERIEN >60 Normal >=60 [facility] Comment on above: Performed By: #### L IPA, CMP, CRP, NAT #### [facility] [address] [place] [address] Dr. Keturah Fisher EGFR-NON AF NIGERIEN >60 Normal >=60 [facility] Comment on above: Performed By: #### L IPA, CMP, CRP, NAT #### [facility] [address] [place] [address] Dr. eKturah Fisher Globulin (S) [Mass/Vol] 3.5 g/dL Normal [facility] Comment on above: Performed By: #### L IPA, CMP, CRP, NAT #### [facility] [address] [address] [address] Keturah Fisher Glucose [Mass/Vol] 91 mg/dL Normal 74-106 [facility] Comment on above: Performed By: #### L IPA, CMP, CRP, NAT #### [facility] [address] [address] [address] Keturah Fisher Potassium [Moles/Vol] 3.9 mmol/L Normal 3.5-5.1 [facility] Comment on above: Performed By: #### L IPA, CMP, CRP, NAT #### [facility] [address] [place] [address] Dr. Keturah Fisher Protein [Mass/Vol] 7.7 g/dL Normal 6.4-8.2 The [facility] Comment on above: Performed By: #### L IPA, CMP, CRP, NAT #### [facility] [address] [place] [address] Dr. Keturah Fisher Sodium [Moles/Vol] 140 mmol/L Normal 136-145 The [facility] Comment on above: Performed By: #### L IPA, CMP, CRP, NAT #### [facility] [address] [place] [address] Dr. Keturah Fisher Urea nitrogen [Mass/Vol] 8.0 mg/dL Normal 7.0-18.0 [facility] Comment on above: Performed By: #### L IPA, CMP, CRP, NAT #### [facility] [address] [place] [address] Dr. Keturah Fisher Urea nitrogen/Creatinine [Mass ratio] 10.4 mg/mg Normal The [facility] Comment on above: Performed By: #### L IPA, CMP, CRP, NAT #### [facility] [address] [place] [address] Dr. Keturah Fisher AMYLASEon 10-11-2021 Amylase [Catalytic activity/Vol] 134 U/L Critically high 25-115 The [facility] Comment on above: Performed By: #### C BC #### [facility] [address] [place] [address] Dr. Keturah Fisher CBC AUTO DIFFon 10-11-2021 BASO # 0.1 103/ul Normal 0.0-0.1 [facility] Comment on above: Performed By: #### L IPA, CMP, CRP, NAT #### [facility] [address] [place] [address] Dr. Keturah Fisher Basophils/100 WBC (Bld) 1.0 % Normal 0.2-2.0 The [facility] Comment on above: Performed By: #### L IPA, CMP, CRP, NAT #### [facility] [address] [place] [address] Dr. Keturah Fisher EO # 0.2 103/ul Normal 0.0-0.7 The [facility] Comment on above: Performed By: #### L IPA, CMP, CRP, NAT #### [facility] [address] [place] [address] Dr. Keturah Fisher Eosinophils/100 WBC (Bld) 2.0 % Normal 0.9-7.0 [facility] Comment on above: Performed By: #### L IPA, CMP, CRP, NAT #### [facility] [address] [place] [address] Dr. Keturah Fisher Erythrocyte distribution width (RBC) [Ratio] 13.2 % Normal 11.0-15.0 [facility] Comment on above: Performed By: #### L IPA, CMP, CRP, NAT #### [facility] [address] [place] [address] Dr. Keturah Fisher Hematocrit (Bld) [Volume fraction] 44.7 % Normal 36.0-48.0 [facility] Comment on above: Performed By: #### L IPA, CMP, CRP, NAT #### [facility] [address] [place] [address] Dr. Keturah Fisher Hemoglobin (Bld) [Mass/Vol] 15.0 g/dL Normal 12.0-16.0 [facility] Comment on above: Performed By: #### L IPA, CMP, CRP, NAT #### [facility] [address] [place] [address] Dr. Keturah Fisher IG # 0.02 10e3/ul Normal 0.00-0.03 The [facility] Comment on above: Performed By: #### L IPA, CMP, CRP, NAT #### [facility] [address] [place] [address] Dr. Keturah Fisher IG % 0.2 % Normal 0.0-0.5 The [facility] Comment on above: Performed By: #### L IPA, CMP, CRP, NAT #### [facility] [address] [place] [address] Dr. Keturah Fisher LYMPH # 4.1 103/ul Critically high 1.2-3.8 The [facility] Comment on above: Performed By: #### L IPA, CMP, CRP, NAT #### [facility] [address] [place] [address] Dr. Keturah Fisher Lymphocytes/100 WBC (Bld) 38.9 % Normal 20.5-60.0 [facility] Comment on above: Performed By: #### L IPA, CMP, CRP, NAT #### [facility] [address] [place] [address] Dr. Keturah Fisher MANUAL DIFF REQ NO Normal [facility] Comment on above: Performed By: #### L IPA, CMP, CRP, NAT #### [facility] [address] [place] [address] Dr. Keturah Fisher MCH (RBC) [Entitic mass] 32.1 pg Normal 26.7-34.0 The [facility] Comment on above: Performed By: #### L IPA, CMP, CRP, NAT #### [facility] [address] [place] [address] Dr. Keturah Fisher MCHC (RBC) [Mass/Vol] 33.6 g/dL Normal 29.9-35.2 The [facility] Comment on above: Performed By: #### L IPA, CMP, CRP, NAT #### [facility] [address] [place] [address] Dr. Keturah Fisher MCV (RBC) [Entitic vol] 95.7 fL Normal 81.0-99.0 The [facility] Comment on above: Performed By: #### L IPA, CMP, CRP, NTA #### [facility] [address] [address] [address] Keturah Fisher MONO # 0.9 103/ul Critically high 0.3-0.8 [facility] Comment on above: Performed By: #### L IPA, CMP, CRP, NAT #### [facility] [address] [place] [address] Dr. Keturah Fisher Monocytes/100 WBC (Bld) 8.8 % Normal 1.7-12.0 The [facility] Comment on above: Performed By: #### L IPA, CMP, CRP, NAT #### [facility] [address] [place] [address] Dr. Keturah Fisher NEUT # 5.2 103/ul Normal 1.4-6.5 The [facility] Comment on above: Performed By: #### L IPA, CMP, CRP, NAT #### [facility] [address] [place] [address] Dr. Keturah Fisher Neutrophils/100 WBC (Bld) 49.1 % Normal 43.0-75.0 The [facility] Comment on above: Performed By: #### L IPA, CMP, CRP, NAT #### [facility] [address] [place] [address] Dr. Keturah Fisher Platelet mean volume (Bld) [Entitic vol] 9.8 fL Normal 9.5-13.5 The [facility] Comment on above: Performed By: #### L IPA, CMP, CRP, NAT #### [facility] [address] [place] [address] Dr. Keturah Fisher PLT 299 103/ul Normal 150-450 The [facility] Comment on above: Performed By: #### L IPA, CMP, CRP, NAT #### [facility] [address] [place] [address] Dr. Keturah Fisher RBC 4.67 106/ul Normal 4.20-5.40 The [facility] Comment on above: Performed By: #### L IPA, CMP, CRP, NAT #### [facility] [address] [place] [address] Dr. Keturah Fisher WBC 10.5 103/ul Normal 4.0-11.0 [facility] Comment on above: Performed By: #### L IPA, CMP, CRP, NAT #### [facility] [address] [place] [address] Dr. Keturah Fisher LIPASEon 10-11-2021 Lipase [Catalytic activity/Vol] 240.0 U/L Normal 73.0-393.0 [facility] Comment on above: Performed By: #### C BC #### [facility] [address] [place] [address] Dr. Keturah Fisher PROF 14(COMP METB)on 022 Albumin [Mass/Vol] 4.3 g/dL Normal 3.4-5.0 [facility] Comment on above: Performed By: #### C BC #### [facility] [address] [place] [address] Dr. Keturah Fisher Albumin/Globulin [Mass ratio] 1.3 {ratio} Normal [facility] Comment on above: Performed By: #### C BC #### [facility] [address] [place] [address] Dr. Keturah Fisher ALP [Catalytic activity/Vol] 162 U/L Critically high 46-116 [facility] Comment on above: Performed By: #### C BC #### [facility] [address] [place] [address] Dr. Keturah Fisher ALT [Catalytic activity/Vol] 21 U/L Normal 14-59 [facility] Comment on above: Performed By: #### C BC #### [facility] [address] [place] [address] Dr. Keturah Fisher Anion gap [Moles/Vol] 15.1 mmol/L Normal [facility] Comment on above: Performed By: #### C BC #### [facility] [address] [place] [address] Dr. Keturah Fisher AST [Catalytic activity/Vol] 16 U/L Normal 15-37 [facility] Comment on above: Performed By: #### C BC #### [facility] [address] [address] [address] Keturah Fisher Bilirubin [Mass/Vol] 0.2 mg/dL Normal 0.2-1.0 [facility] Comment on above: Performed By: #### C BC #### [facility] [address] [address] [address] Keturah Fisher Calcium [Mass/Vol] 9.6 mg/dL Normal 8.5-10.1 [facility] Comment on above: Performed By: #### C BC #### [facility] [address] [place] [address] Dr. Keturah Fisher Chloride [Moles/Vol] 104 mmol/L Normal 98-107 [facility] Comment on above: Performed By: #### C BC #### [facility] [address] [place] [address] Dr. Keturah Fisher CO2 [Moles/Vol] 24.6 mmol/L Normal 21.0-32.0 [facility] Comment on above: Performed By: #### C BC #### [facility] [address] [place] [address] Dr. Keturah Fisher Creatinine [Mass/Vol] 0.88 mg/dL Normal 0.55-1.02 [facility] Comment on above: Performed By: #### C BC #### [facility] [address] [place] [address] Dr. Keturah Fisher EGFR-AF NIGERIEN >60 Normal >=60 [facility] Comment on above: Performed By: #### C BC #### [facility] [address] [place] [address] Dr. Keturah Fisher EGFR-NON AF NIGERIEN >60 Normal >=60 [facility] Comment on above: Performed By: #### C BC #### [facility] [address] [place] [address] Dr. Keturah Fisher Globulin (S) [Mass/Vol] 3.3 g/dL Normal [facility] Comment on above: Performed By: #### C BC #### [facility] [address] [place] [address] Dr. Keturah Fisher Glucose [Mass/Vol] 111 mg/dL Critically high 74-106 [facility] Comment on above: Performed By: #### C BC #### [facility] [address] [address] [address] Keturah Fisher Potassium [Moles/Vol] 3.7 mmol/L Normal 3.5-5.1 [facility] Comment on above: Performed By: #### C BC #### [facility] [address] [address] [address] Keturah Fisher Protein [Mass/Vol] 7.6 g/dL Normal 6.4-8.2 [facility] Comment on above: Performed By: #### C BC #### [facility] [address] [address] [address] Keturah Fisher Sodium [Moles/Vol] 140 mmol/L Normal 136-145 [facility] Comment on above: Performed By: #### C BC #### [facility] [address] [address] [address] Keturah Fisher Urea nitrogen [Mass/Vol] 11.0 mg/dL Normal 7.0-18.0 [facility] Comment on above: Performed By: #### C BC #### [facility] [address] [address] [address] Keturah Fisher Urea nitrogen/Creatinine [Mass ratio] 12.5 mg/mg Normal [facility] Comment on above: Performed By: #### C BC #### [facility] [id number] Keturah Fisher PROTIMEon 10-11-2021 INR Coag (PPP) [Relative time] 0.94 {INR} Normal [facility] Comment on above: Performed By: #### P T, PTT ####[facility] [id number] [id number] Keturah Fisher INR GUIDELINES SEE BELOW Normal [facility] Comment on above: Result Comment: KARLY RED INR: 2.0 - 3.0 CONDITIONS NOT LISTED BELOW 2.5 - 3.5 FOR PROSTHETIC HEART VALVE REPLACEMENT 2.5 - 3.5 RECURRENT THROMBOSIS Performed By: #### P T, PTT ####[facility] [id number] [place], [place] [address]Qd. Keturah Fisher PT Coag (PPP) [Time] 10.2 s Normal 9.0-11.6 [facility] Comment on above: Performed By: #### P T, PTT ####[facility] [id number] [place], [place] [address]Ss. Keturah Fisher PTTon 10-11-2021 aPTT Coag (Bld) [Time] 28.0 s Normal 22.3-36.[address] [facility] Comment on above: Performed By: #### P T, PTT ####[facility] [id number] [place], [place] [address]Wx. Keturah Fisher Amphetamine Screen Ql (U)Ord ered By: Christa Lopez on 10-09-2021 Amphetamines Ql (U) Negative Negative [facility] Barbiturates [Presence] in U rineOrdered By: Christa Lopez on 10-09-2021 Barbiturates Ql (U) Negative Negative [facility] Basophils Auto (Bld) [#/Vol] Ordered By: Christa Lopez on 10-09-2021 Basophils (Bld) [#/Vol] 0.1 10*3/uL 0.0-0.2 [facility] Basophils/100 WBC Auto (Bld) Ordered By: Christa Lopez on 10-09-2021 Basophils/100 WBC (Bld) 0.9 % . [facility] Benzodiazepines [Presence] i n UrineOrdered By: Christa Lopez on 10-09-2021 Benzodiazepines Ql (U) Negative Negative [facility] Bilirubin Auto test strip Ql (U)Ordered By: Christa Lopez on 10-09-2021 Bilirubin Ql (U) Negative Negative [facility] Blood hemoglobin measurement (mass/volume)Ordered By: Christa Lopez on 10-09-2021 Hemoglobin (Bld) [Mass/Vol] 15.7 g/dL 11.8-15.4 [facility] Blood leukocytes automated c ount (number/volume)Ordered By: Christa Lopez on 10-09-2021 WBC (Bld) [#/Vol] 10.1 10*3/uL 4.5-11.0 [facility] Body fluid albumin measureme nt (mass/volume)Ordered By: Christa Lopez on 10-09-2021 Albumin (Body fld) [Mass/Vol] 4.5 g/dL 3.2-5.5 [facility] Cannabinoids [Presence] in U rine by Screen methodOrdered By: Christa Lopez on 10-09-2021 Cannabinoids Screen Ql (U) Negative Negative [facility] Comment on above: These are unconfirme d results and should not be used for legal purposes. Drug Cut-Off Concentration: AMPH 1000 ng/mL BAILEY 200 ng/mL JAKE 200 ng/mL COCM 300 ng/mL OP 300 ng/mL PCP 25 ng/mL THC 20 ng/mL Creatinine and Glomerular fi ltration rate.predicted panel (S/P/Bld)Ordered By: Christa Lopez on 10-09-2021 Creatinine [Mass/Vol] 0.85 mg/dL 0.44-1.03 [facility] Eosinophils Auto (Bld) [#/Vo l]Ordered By: Christa Lopez on 10-09-2021 Eosinophils (Bld) [#/Vol] 0.1 10*3/uL 0.0-0.45 [facility] Eosinophils/100 WBC Auto (Bl d)Ordered By: Christa Lopez on 10-09-2021 Eosinophils/100 WBC (Bld) 1.2 % . [facility] Erythrocyte distribution wid th Auto (RBC) [Ratio]Ordered By: Christa Lopez on 10-09-2021 Erythrocyte distribution width (RBC) [Ratio] 13.5 % 11.9-15.3 [facility] Estimated glomerular filtrat ion rate (GFR) non- AmericanOrdered By: Christa Lopez on 10-09-2021 GFR/1.73 sq M.predicted among non-blacks MDRD (S/P/Bld) [Vol rate/Area] > 60 mL/Min [facility] Globulin Calc (S) [Mass/Vol] Ordered By: Christa Lopez on 10-09-2021 Globulin (S) [Mass/Vol] 2.9 g/dL [facility] Hematocrit Auto (Bld) [Volum e fraction]Ordered By: Christa Lopez on 10-09-2021 Hematocrit (Bld) [Volume fraction] 47.1 % 34.0-46.4 [facility] Ketones Auto test strip (U) [Mass/Vol]Ordered By: Christa Lopez on 10-09-2021 Ketones (U) [Mass/Vol] Negative Negative [facility] Laboratory - Chemistry and C hemistry - challengeOrdered By: Christa Lopez on 10-09-2021 Lipase [Catalytic activity/Vol] 242.0 U/L 22-51 [facility] Laboratory - Drug toxicology Ordered By: Christa Lopez on 10-09-2021 Opiates Ql (U) Negative Negative [facility] Laboratory - Hematology and Cell countsOrdered By: Christa Lopez on 10-09-2021 Nucleated RBC/100 WBC (Bld) [Ratio] 0.1 % 0-0.5 [facility] Lymphocytes Auto (Bld) [#/Vo l]Ordered By: Christa Lopez on 10-09-2021 Lymphocytes (Bld) [#/Vol] 2.6 10*3/uL 1.00-4.8 [facility] Lymphocytes/100 WBC Auto (Bl d)Ordered By: Christa Lopez on 10-09-2021 Lymphocytes/100 WBC (Bld) 26.0 % . [facility] MCH Auto (RBC) [Entitic mass ]Ordered By: Christa Lopez on 10-09-2021 MCH (RBC) [Entitic mass] 32.4 pg 24.7-34.3 [facility] MCHC Auto (RBC) [Mass/Vol]Or dered By: Christa Lopez on 10-09-2021 MCHC (RBC) [Mass/Vol] 33.3 g/dL 32.0-35.0 [facility] MCV Auto (RBC) [Entitic vol] Ordered By: Christa Lopez on 10-09-2021 MCV (RBC) [Entitic vol] 97.3 fL 80-100 [facility] Monocytes Auto (Bld) [#/Vol] Ordered By: Christa Lopez on 10-09-2021 Monocytes (Bld) [#/Vol] 0.8 10*3/uL 0.0-0.8 [facility] Monocytes/100 WBC Auto (Bld) Ordered By: Christa Lopez on 10-09-2021 Monocytes/100 WBC (Bld) 7.6 % . [facility] Neutrophils Auto (Bld) [#/Vo l]Ordered By: Christa Lopez on 10-09-2021 Neutrophils (Bld) [#/Vol] 6.5 10*3/uL 1.8-7.7 [facility] Neutrophils/100 WBC Auto (Bl d)Ordered By: Christa Lopez on 10-09-2021 Neutrophils/100 WBC (Bld) 64.3 % . [facility] No Panel InformationOrdered By: Christa Lopez on 10-09-2021 Estimated GFR () > 60 mL/Min [facility] Comment on above: GFR estimated refere nce range: According to KDOQI guidelines, <60 ml/min/1.73m2 is sufficient to diagnose a patient with chronic kidney disease. Pharmacy Creatinine Clearance (Chem 61.23 [facility] Phencyclidine Screen Ql (U)O rdered By: Christa Lopez on 10-09-2021 Phencyclidine Ql (U) Negative Negative [facility] Platelet mean volume Auto (B ld) [Entitic vol]Ordered By: Christa Lopez on 10-09-2021 Platelet mean volume (Bld) [Entitic vol] 8.5 fL 6.3-10.7 [facility] Platelets Auto (Bld) [#/Vol] Ordered By: Christa Lopez on 10-09-2021 Platelets (Bld) [#/Vol] 284 10*3/uL 150-450 [facility] Protein Auto test strip (U) [Mass/Vol]Ordered By: Christa Lopez on 10-09-2021 Protein (U) [Mass/Vol] Negative Negative [facility] Protein [Mass/volume] in Ser um or PlasmaOrdered By: Christa Lopez on 10-09-2021 Protein [Mass/Vol] 7.4 g/dL 6.1-7.9 [facility] RBC Auto (Bld) [#/Vol]Ordere d By: Christa Lopez on 10-09-2021 RBC (Bld) [#/Vol] 4.84 10*6/uL 3.60-5.00 [facility] Serum or plasma alanine hughes otransferase measurement without P-5'-P (enzymatic activiOrdered By: Christa Lopez on 10-09-2021 ALT No additional P-5'-P [Catalytic activity/Vol] 19 U/L 10-60 [facility] Serum or plasma albumin/glob ulin mass ratioOrdered By: Christa Lopez on 10-09-2021 Albumin/Globulin [Mass ratio] 1.6 {ratio} [facility] Serum or plasma alkaline jaqueline sphatase measurement (enzymatic activity/volume)Ordered By: Christa Lopez on 10-09-2021 ALP [Catalytic activity/Vol] 138 U/L 32-92 [facility] Serum or plasma aspartate am inotransferase measurement (enzymatic activity/volume)Ordered By: Christa Lopez on 10-09-2021 AST [Catalytic activity/Vol] 31 U/L 10-42 [facility] Serum or plasma calcium priscilla urement (mass/volume)Ordered By: Christa Lopez on 10-09-2021 Calcium [Mass/Vol] 10.3 mg/dL 8.2-10.2 [facility] Serum or plasma chloride daron surement (moles/volume)Ordered By: Christa Lopez on 10-09-2021 Chloride [Moles/Vol] 100 mmol/L 95-114 [facility] Serum or plasma glucose priscilla urement (mass/volume)Ordered By: Christa Lopez on 10-09-2021 Glucose [Mass/Vol] 75 mg/dL 70-100 [facility] Comment on above: ADA recommended refe rence range Random Glucose Reference Range is dependent on time and content of last meal. Glucose of more than 200 mg/dL in a nonstressed, ambulatory subject supports the diagnosis of Diabetes Mellitus. Serum or plasma potassium me asurement (moles/volume)Ordered By: Christa Lopez on 10-09-2021 Potassium [Moles/Vol] 3.9 mmol/L 3.5-5.1 [facility] Serum or plasma sodium measu rement (moles/volume)Ordered By: Christa Lopez on 10-09-2021 Sodium [Moles/Vol] 136 mmol/L 136-146 [facility] Serum or plasma total biliru bin measurement (mass/volume)Ordered By: Christa Lopez on 10-09-2021 Bilirubin [Mass/Vol] 0.4 mg/dL 0.3-1.2 [facility] Serum or plasma total carbon dioxide measurement (moles/volume)Ordered By: Christa Lopez on 10-09-2021 CO2 [Moles/Vol] 24.1 mmol/L 22.0-30.0 [facility] Serum or plasma urea nitroge n measurement (mass/volume)Ordered By: Christa Lopez on 10-09-2021 Urea nitrogen [Mass/Vol] 12 mg/dL 9- [facility] Troponin I.cardiac [Mass/vol ume] in Serum or Plasma by High sensitivity methodOrdered By: Christa Lopez on 10-09-2021 Troponin I.cardiac High sensitivity method [Mass/Vol] 3 pg/mL 0-15 [facility] Urine appearanceOrdered By: Christa Lopez on 10-09-2021 Appearance (U) Clear Clear [facility] Urine cocaine detectionOrder ed By: Christa Lopez on 10-09-2021 Cocaine Ql (U) Negative Negative [facility] Urine colorOrdered By: Christa Lopez on 10-09-2021 Color (U) Yellow Yellow [facility] Urine glucose measurement by automated test strip (mass/volume)Ordered By: Christa Lopez on 10-09-2021 Glucose Auto test strip (U) [Mass/Vol] Normal mg/dL Normal [facility] Urine hemoglobin detection b y automated test stripOrdered By: Christa Lopez on 10-09-2021 Hemoglobin Auto test strip Ql (U) Negative Negative [facility] Urine leukocyte esterase det ection by automated test stripOrdered By: Christa Lopez on 10-09-2021 Leukocyte esterase Auto test strip Ql (U) Negative Negative [facility] Urine nitrite detection by a utomated test stripOrdered By: Christa Lopez on 10-09-2021 Nitrite Auto test strip Ql (U) Negative Negative [facility] Urobilinogen Auto test strip (U) [Mass/Vol]Ordered By: Christa Lopez on 10-09-2021 Urobilinogen (U) [Mass/Vol] Normal mg/dL Normal [facility] pH Auto test strip (U)Ordere d By: Christa Lopez on 10-09-2021 pH (U) 1.025 [pH] 1.001-1.03 0 [facility] pH (U) 5.5 [pH] 5.0-9.0 [facility] Albumin [Mass/volume] in Ser um or PlasmaOrdered By: Reinaldo Amor on 10-04-2021 Albumin [Mass/Vol] 3.6 g/dL 3.2-5.5 [facility] Basophils Auto (Bld) [#/Vol] Ordered By: Reinaldo Amor on 10-04-2021 Basophils (Bld) [#/Vol] 0.1 10*3/uL 0.0-0.2 [facility] Basophils/100 WBC Auto (Bld) Ordered By: Reinaldo Amor on 10-04-2021 Basophils/100 WBC (Bld) 0.8 % . [facility] Bilirubin Auto test strip Ql (U)Ordered By: Reinaldo Amor on 10-04-2021 Bilirubin Ql (U) Negative Negative [facility] Blood hemoglobin measurement (mass/volume)Ordered By: Reinaldo Amor on 10-04-2021 Hemoglobin (Bld) [Mass/Vol] 13.9 g/dL 11.8-15.4 [facility] Blood leukocytes automated c ount (number/volume)Ordered By: Reinaldo Amor on 10-04-2021 WBC (Bld) [#/Vol] 10.4 10*3/uL 4.5-11.0 [facility] Creatinine and Glomerular fi ltration rate.predicted panel (S/P/Bld)Ordered By: Reinaldo Amor on 10-04-2021 Creatinine [Mass/Vol] 0.73 mg/dL 0.44-1.03 [facility] Direct bilirubin measurement Ordered By: Reinaldo Amor on 10-04-2021 Bilirubin.direct [Mass/Vol] mg/dL 0.0-0.4 [facility] Eosinophils Auto (Bld) [#/Vo l]Ordered By: Reinaldo Amor on 10-04-2021 Eosinophils (Bld) [#/Vol] 0.1 10*3/uL 0.0-0.45 [facility] Eosinophils/100 WBC Auto (Bl d)Ordered By: Reinaldo Amor on 10-04-2021 Eosinophils/100 WBC (Bld) 0.5 % . [facility] Erythrocyte distribution wid th Auto (RBC) [Ratio]Ordered By: Reinaldo Amor on 10-04-2021 Erythrocyte distribution width (RBC) [Ratio] 13.7 % 11.9-15.3 [facility] Estimated glomerular filtrat ion rate (GFR) non- AmericanOrdered By: Reinaldo Amor on 10-04-2021 GFR/1.73 sq M.predicted among non-blacks MDRD (S/P/Bld) [Vol rate/Area] > 60 mL/Min [facility] Globulin Calc (S) [Mass/Vol] Ordered By: Reinaldo Amor on 10-04-2021 Globulin (S) [Mass/Vol] 2.6 g/dL [facility] Hematocrit Auto (Bld) [Volum e fraction]Ordered By: Reinaldo Amor on 10-04-2021 Hematocrit (Bld) [Volume fraction] 41.1 % 34.0-46.4 [facility] Ketones Auto test strip (U) [Mass/Vol]Ordered By: Reinaldo Amor on 10-04-2021 Ketones (U) [Mass/Vol] Negative Negative [facility] Laboratory - Chemistry and C hemistry - challengeOrdered By: Reinaldo Amor on 10-04-2021 Lipase [Catalytic activity/Vol] 107.0 U/L 22-51 [facility] Laboratory - Hematology and Cell countsOrdered By: Reinaldo Amor on 10-04-2021 Nucleated RBC/100 WBC (Bld) [Ratio] 0.1 % 0-0.5 [facility] Lymphocytes Auto (Bld) [#/Vo l]Ordered By: Reinaldo Amor on 10-04-2021 Lymphocytes (Bld) [#/Vol] 2.5 10*3/uL 1.00-4.8 [facility] Lymphocytes/100 WBC Auto (Bl d)Ordered By: Reinaldo Amor on 10-04-2021 Lymphocytes/100 WBC (Bld) 24.1 % . [facility] MCH Auto (RBC) [Entitic mass ]Ordered By: Reinaldo Amor on 10-04-2021 MCH (RBC) [Entitic mass] 32.6 pg 24.7-34.3 [facility] MCHC Auto (RBC) [Mass/Vol]Or dered By: Reinaldo Amor on 10-04-2021 MCHC (RBC) [Mass/Vol] 33.8 g/dL 32.0-35.0 [facility] MCV Auto (RBC) [Entitic vol] Ordered By: Reinaldo Amor on 10-04-2021 MCV (RBC) [Entitic vol] 96.5 fL 80-100 [facility] Monocytes Auto (Bld) [#/Vol] Ordered By: Reinaldo Amor on 10-04-2021 Monocytes (Bld) [#/Vol] 0.9 10*3/uL 0.0-0.8 [facility] Monocytes/100 WBC Auto (Bld) Ordered By: Reinaldo Amor on 10-04-2021 Monocytes/100 WBC (Bld) 8.4 % . [facility] Neutrophils Auto (Bld) [#/Vo l]Ordered By: Reinaldo Amor on 10-04-2021 Neutrophils (Bld) [#/Vol] 6.9 10*3/uL 1.8-7.7 [facility] Neutrophils/100 WBC Auto (Bl d)Ordered By: Reinaldo Amor on 10-04-2021 Neutrophils/100 WBC (Bld) 66.2 % . [facility] No Panel InformationOrdered By: Reinaldo Amor on 10-04-2021 Estimated GFR () > 60 mL/Min [facility] Comment on above: GFR estimated refere nce range: According to KDOQI guidelines, <60 ml/min/1.73m2 is sufficient to diagnose a patient with chronic kidney disease. Pharmacy Creatinine Clearance (Chem 71.30 [facility] Platelet mean volume Auto (B ld) [Entitic vol]Ordered By: Reinaldo Amor on 10-04-2021 Platelet mean volume (Bld) [Entitic vol] 8.0 fL 6.3-10.7 [facility] Platelets Auto (Bld) [#/Vol] Ordered By: Reinaldo Amor on 10-04-2021 Platelets (Bld) [#/Vol] 268 10*3/uL 150-450 [facility] Protein Auto test strip (U) [Mass/Vol]Ordered By: Reinaldo Amor on 10-04-2021 Protein (U) [Mass/Vol] Negative Negative [facility] Protein [Mass/volume] in Ser um or PlasmaOrdered By: Reinaldo Amor on 10-04-2021 Protein [Mass/Vol] 6.2 g/dL 6.1-7.9 [facility] RBC Auto (Bld) [#/Vol]Ordere d By: Reinaldo Amor on 10-04-2021 RBC (Bld) [#/Vol] 4.26 10*6/uL 3.60-5.00 [facility] Serum or plasma alanine hughes otransferase measurement without P-5'-P (enzymatic activiOrdered By: Reinaldo Amor on 10-04-2021 ALT No additional P-5'-P [Catalytic activity/Vol] 15 U/L 10-60 [facility] Serum or plasma albumin/glob ulin mass ratioOrdered By: Reinaldo Amor on 10-04-2021 Albumin/Globulin [Mass ratio] 1.4 {ratio} [facility] Serum or plasma alkaline jaqueline sphatase measurement (enzymatic activity/volume)Ordered By: Reinaldo Amor on 10-04-2021 ALP [Catalytic activity/Vol] 103 U/L 32-92 [facility] Serum or plasma amylase priscilla urement (enzymatic activity/volume)Ordered By: Reinaldo Amor on 10-04-2021 Amylase [Catalytic activity/Vol] 134 U/L 28-100 [facility] Serum or plasma aspartate am inotransferase measurement (enzymatic activity/volume)Ordered By: Reinaldo Amor on 10-04-2021 AST [Catalytic activity/Vol] 20 U/L 10-42 [facility] Serum or plasma calcium priscilla urement (mass/volume)Ordered By: Reinaldo Amor on 10-04-2021 Calcium [Mass/Vol] 9.6 mg/dL 8.2-10.2 [facility] Serum or plasma chloride daron surement (moles/volume)Ordered By: Reinaldo Amor on 10-04-2021 Chloride [Moles/Vol] 103 mmol/L 95-114 [facility] Serum or plasma ethanol priscilla urement (mass/volume)Ordered By: Reinaldo Amor on 10-04-2021 Ethanol [Mass/Vol] mg/dL [facility] Ethanol [Mass/Vol] TNP [facility] Comment on above: Test not performed Serum or plasma glucose priscilla urement (mass/volume)Ordered By: Reinaldo Amor on 10-04-2021 Glucose [Mass/Vol] 120 mg/dL 70-100 [facility] Comment on above: ADA recommended refe rence range Random Glucose Reference Range is dependent on time and content of last meal. Glucose of more than 200 mg/dL in a nonstressed, ambulatory subject supports the diagnosis of Diabetes Mellitus. Serum or plasma non-glucuron idated bilirubin measurement (mass/volume)Ordered By: Reinaldo Amor on 10-04-2021 Bilirubin.indirect [Mass/Vol] [facility] on above: Test not performed Serum or plasma potassium me asurement (moles/volume)Ordered By: Reinaldo Amor on 10-04-2021 Potassium [Moles/Vol] 3.7 mmol/L 3.5-5.1 [facility] Serum or plasma sodium measu rement (moles/volume)Ordered By: Reinaldo Amor on 10-04-2021 Sodium [Moles/Vol] 137 mmol/L 136-146 [facility] Serum or plasma total biliru bin measurement (mass/volume)Ordered By: Reinaldo Amor on 10-04-2021 Bilirubin [Mass/Vol] 0.5 mg/dL 0.3-1.2 [facility] Serum or plasma total carbon dioxide measurement (moles/volume)Ordered By: Reinaldo Amor on 10-04-2021 CO2 [Moles/Vol] 24.9 mmol/L 22.0-30.0 [facility] Serum or plasma urea nitroge n measurement (mass/volume)Ordered By: Reinaldo Amor on 10-04-2021 Urea nitrogen [Mass/Vol] 7 mg/dL 9- [facility] Urine appearanceOrdered By: Reinaldo Amor on 10-04-2021 Appearance (U) Clear Clear [facility] Urine colorOrdered By: Ml Amor on 10-04-2021 Color (U) Yellow Yellow [facility] Urine glucose measurement by automated test strip (mass/volume)Ordered By: Reinaldo Amor on 10-04-2021 Glucose Auto test strip (U) [Mass/Vol] Normal mg/dL Normal [facility] Urine hemoglobin detection b y automated test stripOrdered By: Reinaldo Amor on 10-04-2021 Hemoglobin Auto test strip Ql (U) Negative Negative [facility] Urine leukocyte esterase det ection by automated test stripOrdered By: Reinaldo Amor on 10-04-2021 Leukocyte esterase Auto test strip Ql (U) Negative Negative [facility] Urine nitrite detection by a utomated test stripOrdered By: Reinaldo Amor on 10-04-2021 Nitrite Auto test strip Ql (U) Negative Negative [facility] Urobilinogen Auto test strip (U) [Mass/Vol]Ordered By: Reinaldo Amor on 10-04-2021 Urobilinogen (U) [Mass/Vol] Normal mg/dL Normal [facility] pH Auto test strip (U)Ordere d By: Reinaldo Amor on 10-04-2021 pH (U) 1.030 [pH] 1.001-1.03 0 [facility] pH (U) 5.5 [pH] 5.0-9.0 [facility] Basophils Auto (Bld) [#/Vol] Ordered By: Reinaldo Amor on 09-25-2021 Basophils (Bld) [#/Vol] 0.1 10*3/uL 0.0-0.2 [facility] Basophils/100 WBC Auto (Bld) Ordered By: Reinaldo Amor on 09-25-2021 Basophils/100 WBC (Bld) 1.2 % . [facility] Blood hemoglobin measurement (mass/volume)Ordered By: Reinaldo Amor on 09-25-2021 Hemoglobin (Bld) [Mass/Vol] 14.2 g/dL 11.8-15.4 [facility] Blood leukocytes automated c ount (number/volume)Ordered By: Reinaldo Amor on 09-25-2021 WBC (Bld) [#/Vol] 9.3 10*3/uL 4.5-11.0 [facility] Body fluid albumin measureme nt (mass/volume)Ordered By: PROVIDER TEMP on 09-25-2021 Albumin (Body fld) [Mass/Vol] 4.3 g/dL 3.2-5.5 [facility] Creatinine and Glomerular fi ltration rate.predicted panel (S/P/Bld)Ordered By: PROVIDER TEMMaty on 09-25-2021 Creatinine [Mass/Vol] 0.82 mg/dL 0.44-1.03 [facility] Eosinophils Auto (Bld) [#/Vo l]Ordered By: Reinaldo Amor on 09-25-2021 Eosinophils (Bld) [#/Vol] 0.2 10*3/uL 0.0-0.45 [facility] Eosinophils/100 WBC Auto (Bl d)Ordered By: Reinaldo Amor on 09-25-2021 Eosinophils/100 WBC (Bld) 1.9 % . [facility] Erythrocyte distribution wid th Auto (RBC) [Ratio]Ordered By: Reinaldo Amor on 09-25-2021 Erythrocyte distribution width (RBC) [Ratio] 13.7 % 11.9-15.3 [facility] Estimated glomerular filtrat ion rate (GFR) non- AmericanOrdered By: PROVIDER JONATHAN on 09-25-2021 GFR/1.73 sq M.predicted among non-blacks MDRD (S/P/Bld) [Vol rate/Area] > 60 mL/Min [facility] Globulin Calc (S) [Mass/Vol] Ordered By: PROVIDER TEMP on 09-25-2021 Globulin (S) [Mass/Vol] 3.3 g/dL [facility] Hematocrit Auto (Bld) [Volum e fraction]Ordered By: Reinaldo Amor on 09-25-2021 Hematocrit (Bld) [Volume fraction] 42.1 % 34.0-46.4 [facility] Laboratory - Chemistry and C hemistry - challengeOrdered By: Reinaldo Amor on 09-25-2021 Lipase [Catalytic activity/Vol] 64.0 U/L 22-51 [facility] Laboratory - Hematology and Cell countsOrdered By: Reinaldo Amor on 09-25-2021 Nucleated RBC/100 WBC (Bld) [Ratio] 0.1 % 0-0.5 [facility] Lymphocytes Auto (Bld) [#/Vo l]Ordered By: Reinaldo Amor on 09-25-2021 Lymphocytes (Bld) [#/Vol] 2.6 10*3/uL 1.00-4.8 [facility] Lymphocytes/100 WBC Auto (Bl d)Ordered By: Reinaldo Amor on 09-25-2021 Lymphocytes/100 WBC (Bld) 28.1 % . [facility] MCH Auto (RBC) [Entitic mass ]Ordered By: Reinaldo Amor on 09-25-2021 MCH (RBC) [Entitic mass] 32.5 pg 24.7-34.3 [facility] MCHC Auto (RBC) [Mass/Vol]Or dered By: Reinaldo Amor on 09-25-2021 MCHC (RBC) [Mass/Vol] 33.7 g/dL 32.0-35.0 [facility] MCV Auto (RBC) [Entitic vol] Ordered By: Reinaldo Amor on 09-25-2021 MCV (RBC) [Entitic vol] 96.7 fL 80-100 [facility] Monocytes Auto (Bld) [#/Vol] Ordered By: Reinaldo Amor on 09-25-2021 Monocytes (Bld) [#/Vol] 0.8 10*3/uL 0.0-0.8 [facility] Monocytes/100 WBC Auto (Bld) Ordered By: Reinaldo Amor on 09-25-2021 Monocytes/100 WBC (Bld) 8.2 % . [facility] Neutrophils Auto (Bld) [#/Vo l]Ordered By: Reinaldo Amor on 09-25-2021 Neutrophils (Bld) [#/Vol] 5.6 10*3/uL 1.8-7.7 [facility] Neutrophils/100 WBC Auto (Bl d)Ordered By: Reinaldo Amor on 09-25-2021 Neutrophils/100 WBC (Bld) 60.6 % . [facility] No Panel InformationOrdered By: PROVIDER TEMP on 09-25-2021 Estimated GFR () > 60 mL/Min [facility] Comment on above: GFR estimated refere nce range: According to KDOQI guidelines, <60 ml/min/1.73m2 is sufficient to diagnose a patient with chronic kidney disease. Pharmacy Creatinine Clearance (Chem 63.47 [facility] Platelet mean volume Auto (B ld) [Entitic vol]Ordered By: Reinaldo Amor on 09-25-2021 Platelet mean volume (Bld) [Entitic vol] 8.6 fL 6.3-10.7 [facility] Platelets Auto (Bld) [#/Vol] Ordered By: Reinaldo mAor on 09-25-2021 Platelets (Bld) [#/Vol] 221 10*3/uL 150-450 [facility] Protein [Mass/volume] in Ser um or PlasmaOrdered By: PROVIDER JONATHAN on 09-25-2021 Protein [Mass/Vol] 7.6 g/dL 6.1-7.9 [facility] RBC Auto (Bld) [#/Vol]Ordere d By: Reinaldo Amor on 09-25-2021 RBC (Bld) [#/Vol] 4.35 10*6/uL 3.60-5.00 [facility] Serum or plasma alanine hughes otransferase measurement without P-5'-P (enzymatic activiOrdered By: PROVIDER TEMMaty on 09-25-2021 ALT No additional P-5'-P [Catalytic activity/Vol] 14 U/L 10-60 [facility] Serum or plasma albumin/glob ulin mass ratioOrdered By: PROVIDER TEMP on 09-25-2021 Albumin/Globulin [Mass ratio] 1.3 {ratio} [facility] Serum or plasma alkaline jaqueline sphatase measurement (enzymatic activity/volume)Ordered By: PROVIDER TEMP on 09-25-2021 ALP [Catalytic activity/Vol] 127 U/L 32-92 [facility] Serum or plasma amylase priscilla urement (enzymatic activity/volume)Ordered By: Reinaldo Amor on 09-25-2021 Amylase [Catalytic activity/Vol] 171 U/L 28-100 [facility] Serum or plasma aspartate am inotransferase measurement (enzymatic activity/volume)Ordered By: PROVIDER TEMP on 09-25-2021 AST [Catalytic activity/Vol] 21 U/L 10-42 [facility] Serum or plasma calcium priscilla urement (mass/volume)Ordered By: PROVIDER TEMP on 09-25-2021 Calcium [Mass/Vol] 10.1 mg/dL 8.2-10.2 [facility] Serum or plasma chloride daron surement (moles/volume)Ordered By: PROVIDER TEMP on 09-25-2021 Chloride [Moles/Vol] 103 mmol/L 95-114 [facility] Serum or plasma glucose priscilla urement (mass/volume)Ordered By: PROVIDER TEMP on 09-25-2021 Glucose [Mass/Vol] 93 mg/dL 70-100 [facility] Comment on above: ADA recommended refe rence range Random Glucose Reference Range is dependent on time and content of last meal. Glucose of more than 200 mg/dL in a nonstressed, ambulatory subject supports the diagnosis of Diabetes Mellitus. Serum or plasma potassium me asurement (moles/volume)Ordered By: PROVIDER TEMP on 09-25-2021 Potassium [Moles/Vol] 3.9 mmol/L 3.5-5.1 [facility] Serum or plasma sodium measu rement (moles/volume)Ordered By: PROVIDER TEMP on 09-25-2021 Sodium [Moles/Vol] 137 mmol/L 136-146 [facility] Serum or plasma total biliru bin measurement (mass/volume)Ordered By: PROVIDER TEMP on 09-25-2021 Bilirubin [Mass/Vol] 0.3 mg/dL 0.3-1.2 [facility] Serum or plasma total carbon dioxide measurement (moles/volume)Ordered By: PROVIDER TEMP on 09-25-2021 CO2 [Moles/Vol] 26.3 mmol/L 22.0-30.0 [facility] Serum or plasma urea nitroge n measurement (mass/volume)Ordered By: PROVIDER TEMP on 09-25-2021 Urea nitrogen [Mass/Vol] 8 mg/dL 9- [facility] AMYLASEon 09-17-2021 Amylase [Catalytic activity/Vol] 142 U/L Critically high 25-115 [facility] Comment on above: Performed By: #### A MY, CMP, LIPA ####[facility] [address] [place] [id number]. Keturah Phillip CBC AUTO DIFFon 09-17-2021 BASO # 0.1 103/ul Normal 0.0-0.1 [facility] Comment on above: Performed By: #### C BC ####[facility] [address] [place], [place] [address]Dr. Keturah Fisher Basophils/100 WBC (Bld) 0.7 % Normal 0.2-2.0 The [facility] Comment on above: Performed By: #### C BC ####[facility] [address] [place], [place] [address]Dr. Keturah Fisher EO # 0.1 103/ul Normal 0.0-0.7 [facility] Comment on above: Performed By: #### C BC ####[facility] [address] [place], [place] [address]Dr. Keturah Fisher Eosinophils/100 WBC (Bld) 1.3 % Normal 0.9-7.0 The [facility] Comment on above: Performed By: #### C BC ####[facility] [address] [place], [place] [address]Dr. Keturah Fisher Erythrocyte distribution width (RBC) [Ratio] 13.2 % Normal 11.0-15.0 [facility] Comment on above: Performed By: #### C BC ####[facility] [address] [place], [place] [address]Dr. Keturah Fisher Hematocrit (Bld) [Volume fraction] 43.7 % Normal 36.0-48.0 The [facility] Comment on above: Performed By: #### C BC ####[facility] [address] [place], [place] [address]Dr. Keturah Fisher Hemoglobin (Bld) [Mass/Vol] 14.7 g/dL Normal 12.0-16.0 The [facility] Comment on above: Performed By: #### C BC ####[facility] [address] [place], [place] [address]Dr. Keturah Fisher IG # 0.01 10e3/ul Normal 0.00-0.03 The [facility] Comment on above: Performed By: #### C BC ####[facility] [address] [place] [id number]. Keturah Fisher IG % 0.1 % Normal 0.0-0.5 [facility] Comment on above: Performed By: #### C BC ####[facility] [address] [place] [id number]. Keturah Fisher LYMPH # 2.7 103/ul Normal 1.2-3.8 The [facility] Comment on above: Performed By: #### C BC ####[facility] [address] [place] [id number]. Keturah Phillip Lymphocytes/100 WBC (Bld) 30.1 % Normal 20.5-60.0 [facility] Comment on above: Performed By: #### C BC ####[facility] [address] [place] [address]Dr. Elisaeli Fisher MANUAL DIFF REQ NO Normal [facility] Comment on above: Performed By: #### C BC ####[facility] [address] [place] [id number]. Keturah Fisher MCH (RBC) [Entitic mass] 32.4 pg Normal 26.7-34.0 [facility] Comment on above: Performed By: #### C BC ####[facility] [address] [place] [id number]. Keturah Fisher MCHC (RBC) [Mass/Vol] 33.6 g/dL Normal 29.9-35.2 The [facility] Comment on above: Performed By: #### C BC ####[facility] [address] [place], [place] [id number]. Keturah Fisher MCV (RBC) [Entitic vol] 96.3 fL Normal 81.0-99.0 The [facility] Comment on above: Performed By: #### C BC ####[facility] [address] [place], [place] [id number]. Keturah Fisher MONO # 0.8 103/ul Normal 0.3-0.8 The [facility] Comment on above: Performed By: #### C BC ####[facility] [address] [place] [id number]. Keturah Fisher Monocytes/100 WBC (Bld) 8.7 % Normal 1.7-12.0 The [facility] Comment on above: Performed By: #### C BC ####[facility] [address] [place] [id number]. Keturah Fisher NEUT # 5.4 103/ul Normal 1.4-6.5 The [facility] Comment on above: Performed By: #### C BC ####[facility] [address] [place] [id number]. Keturah Fisher Neutrophils/100 WBC (Bld) 59.1 % Normal 43.0-75.0 The [facility] Comment on above: Performed By: #### C BC ####[facility] [address] [place] [address]Dr. Keturah Fisher Platelet mean volume (Bld) [Entitic vol] 9.6 fL Normal 9.5-13.5 The [facility] Comment on above: Performed By: #### C BC ####[facility] [address] [place], [place] [id number]. Keturah Fisher PLT 272 103/ul Normal 150-450 The [facility] Comment on above: Performed By: #### C BC ####[facility] [address] [place] [id number]. Keturah Fisher RBC 4.54 106/ul Normal 4.20-5.40 The [facility] Comment on above: Performed By: #### C BC ####[facility] [address] [place], [place] [address]Dr. Keturah Fisher WBC 9.1 103/ul Normal 4.0-11.0 The [facility] Comment on above: Performed By: #### C BC ####[facility] [address] [place], [place] [address]Dr. Keturah Fisher ETHANOL (BLD ALC)on 09-18-19 22 ALC NOTE NOTE: 80 mg/dl is th e legal limit for a blood alcohol level Normal The [facility] Comment on above: Performed By: #### L IPA, CMP, CRP, NAT #### [facility] [address] [place] [address] Dr. Keturah Fisher Ethanol [Mass/Vol] mg/dL Normal [facility] Comment on above: Performed By: #### L IPA, CMP, CRP, NAT #### [facility] [address] [place] [address] Dr. Keturah Fisher LIPASEon 09-17-2021 Lipase [Catalytic activity/Vol] 524.0 U/L Critically high 73.0-393.0 [facility] Comment on above: Performed By: #### C BC #### [facility] [address] [place] [address] Dr. Keturah Fisher PROF 14(COMP METB)on 022 Albumin [Mass/Vol] 3.9 g/dL Normal 3.4-5.0 [facility] Comment on above: Performed By: #### C BC #### [facility] [address] [place] [address] Dr. Keturah Fishre Albumin/Globulin [Mass ratio] 1.1 {ratio} Normal [facility] Comment on above: Performed By: #### C BC #### [facility] [address] [place] [address] Dr. Keturah Fisher ALP [Catalytic activity/Vol] 136 U/L Critically high 46-116 [facility] Comment on above: Performed By: #### C BC #### [facility] [address] [place] [address] Dr. Keturah Fisher ALT [Catalytic activity/Vol] 21 U/L Normal 14-59 [facility] Comment on above: Performed By: #### C BC #### [facility] [address] [place] [address] Dr. Keturah Fisher Anion gap [Moles/Vol] 12.7 mmol/L Normal Th [facility] Comment on above: Performed By: #### C BC #### [facility] [address] [place] [address] Dr. Keturah Fisher AST [Catalytic activity/Vol] 16 U/L Normal 15-37 [facility] Comment on above: Performed By: #### C BC #### [facility] [address] [address] [address] Keturah Fisher Bilirubin [Mass/Vol] 0.2 mg/dL Normal 0.2-1.0 [facility] Comment on above: Performed By: #### C BC #### [facility] [address] [address] [address] Keturah Fisher Calcium [Mass/Vol] 9.9 mg/dL Normal 8.5-10.1 [facility] Comment on above: Performed By: #### C BC #### [facility] [address] [address] [address] Keturah Fisher Chloride [Moles/Vol] 106 mmol/L Normal 98-107 [facility] Comment on above: Performed By: #### C BC #### [facility] [address] [address] [address] Keturah Fisher CO2 [Moles/Vol] 25.9 mmol/L Normal 21.0-32.0 [facility] Comment on above: Performed By: #### C BC #### [facility] [address] [address] [address] Keturah Fisher Creatinine [Mass/Vol] 0.96 mg/dL Normal 0.55-1.02 [facility] Comment on above: Performed By: #### C BC #### [facility] [address] [address] [address] Keturah Fisher EGFR-AF NIGERIEN >60 Normal >=60 The [facility] Comment on above: Performed By: #### C BC #### [facility] [address] [address] [address] Keturah Fisher EGFR-NON AF NIGERIEN >60 Normal >=60 [facility] Comment on above: Performed By: #### C BC #### [facility] [address] [address] [address] Keturah Fisher Globulin (S) [Mass/Vol] 3.5 g/dL Normal [facility] Comment on above: Performed By: #### C BC #### [facility] [address] [address] [address] Keturah Fisher Glucose [Mass/Vol] 113 mg/dL Critically high 74-106 T [facility] Comment on above: Performed By: #### C BC #### [facility] [address] [address] [address] Keturah Fisher Potassium [Moles/Vol] 3.6 mmol/L Normal 3.5-5.1 [facility] Comment on above: Performed By: #### C BC #### [facility] [address] [address] [address] Keturah Fisher Protein [Mass/Vol] 7.4 g/dL Normal 6.4-8.2 [facility] Comment on above: Performed By: #### C BC #### [facility] [address] [address] [address] Keturah Fisher Sodium [Moles/Vol] 141 mmol/L Normal 136-145 [facility] Comment on above: Performed By: #### C BC #### [facility] [address] [address] [address] Keturah Fisher Urea nitrogen [Mass/Vol] 8.0 mg/dL Normal 7.0-18.0 [facility] Comment on above: Performed By: #### C BC #### [facility] [address] [address] [address] Keturah Fisher Urea nitrogen/Creatinine [Mass ratio] 8.3 mg/mg Normal [facility] Comment on above: Performed By: #### C BC #### [facility] [address] [address] [address] Keturah Fisher AMYLASEon 08-26-2021 Amylase [Catalytic activity/Vol] 94 U/L Normal 25-115 The [facility] Comment on above: Performed By: #### A MY, CMP, LIPA ####[facility] [address] [place] [address]Dr. Keturah Fisher CBC AUTO DIFFon 08-26-2021 BASO # 0.1 103/ul Normal 0.0-0.1 [facility] Comment on above: Performed By: #### L IPA, CMP, CRP, NAT #### [facility] [address] [place] [address] Dr. Keturah Fisher Basophils/100 WBC (Bld) 0.7 % Normal 0.2-2.0 [facility] Comment on above: Performed By: #### L IPA, CMP, CRP, NAT #### [facility] [address] [place] [address] Dr. Keturah Fisher EO # 0.2 103/ul Normal 0.0-0.7 The [facility] Comment on above: Performed By: #### L IPA, CMP, CRP, NAT #### [facility] [address] [place] [address] Dr. Keturah Fisher Eosinophils/100 WBC (Bld) 2.5 % Normal 0.9-7.0 [facility] Comment on above: Performed By: #### L IPA, CMP, CRP, NAT #### [facility] [address] [place] [address] Dr. Keturah Fisher Erythrocyte distribution width (RBC) [Ratio] 13.1 % Normal 11.0-15.0 [facility] Comment on above: Performed By: #### L IPA, CMP, CRP, NAT #### [facility] [address] [place] [address] Dr. Keturah Fisher Hematocrit (Bld) [Volume fraction] 42.4 % Normal 36.0-48.0 [facility] Comment on above: Performed By: #### L IPA, CMP, CRP, NAT #### [facility] [address] [place] [address] Dr. Keturah Fisher Hemoglobin (Bld) [Mass/Vol] 14.1 g/dL Normal 12.0-16.0 [facility] Comment on above: Performed By: #### L IPA, CMP, CRP, NAT #### [facility] [address] [place] [address] Dr. Keturah Fisher IG # 0.03 10e3/ul Normal 0.00-0.03 [facility] Comment on above: Performed By: #### L IPA, CMP, CRP, NAT #### [facility] [address] [place] [address] Dr. Keturah Fisher IG % 0.3 % Normal 0.0-0.5 The [facility] Comment on above: Performed By: #### L IPA, CMP, CRP, NAT #### [facility] [address] [place] [address] Dr. Keturah Fisher LYMPH # 2.6 103/ul Normal 1.2-3.8 The [facility] Comment on above: Performed By: #### L IPA, CMP, CRP, NAT #### [facility] [address] [place] [address] Dr. Keturah Fisher Lymphocytes/100 WBC (Bld) 27.7 % Normal 20.5-60.0 The [facility] Comment on above: Performed By: #### L IPA, CMP, CRP, NAT #### [facility] [address] [place] [address] Dr. Keturah Fisher MANUAL DIFF REQ NO Normal [facility] Comment on above: Performed By: #### L IPA, CMP, CRP, NAT #### [facility] [address] [place] [address] Dr. Keturah Fisher MCH (RBC) [Entitic mass] 32.6 pg Normal 26.7-34.0 The [facility] Comment on above: Performed By: #### L IPA, CMP, CRP, NAT #### [facility] [address] [place] [address] Dr. Keturah Fisher MCHC (RBC) [Mass/Vol] 33.3 g/dL Normal 29.9-35.2 The [facility] Comment on above: Performed By: #### L IPA, CMP, CRP, NAT #### [facility] [address] [place] [address] Dr. Keturah Fisher MCV (RBC) [Entitic vol] 97.9 fL Normal 81.0-99.0 The [facility] Comment on above: Performed By: #### L IPA, CMP, CRP, NAT #### [facility] [address] [place] [address] Dr. Keturah Fisher MONO # 1.2 103/ul Critically high 0.3-0.8 The [facility] Comment on above: Performed By: #### L IPA, CMP, CRP, NAT #### [facility] [address] [address] [address] Keturah Fisher Monocytes/100 WBC (Bld) 12.9 % Critically high 1.7-12.0 [facility] Comment on above: Performed By: #### L IPA, CMP, CRP, NAT #### [facility] [address] [place] [address] Dr. Kteurah Fisher NEUT # 5.3 103/ul Normal 1.4-6.5 The [facility] Comment on above: Performed By: #### L IPA, CMP, CRP, NAT #### [facility] [address] [place] [address] Dr. Keturah Fisher Neutrophils/100 WBC (Bld) 55.9 % Normal 43.0-75.0 The [facility] Comment on above: Performed By: #### L IPA, CMP, CRP, NAT #### [facility] [address] [place] [address] Dr. Keturah Fisher Platelet mean volume (Bld) [Entitic vol] 9.8 fL Normal 9.5-13.5 The [facility] Comment on above: Performed By: #### L IPA, CMP, CRP, NAT #### [facility] [address] [place] [address] Dr. Keturah Fisher PLT 229 103/ul Normal 150-450 The [facility] Comment on above: Performed By: #### L IPA, CMP, CRP, NAT #### [facility] [address] [place] [address] Dr. Keturah Fisher RBC 4.33 106/ul Normal 4.20-5.40 The [facility] Comment on above: Performed By: #### L IPA, CMP, CRP, NAT #### [facility] [address] [place] [address] Dr. Keturah Fisher WBC 9.5 103/ul Normal 4.0-11.0 The [facility] Comment on above: Performed By: #### L IPA, CMP, CRP, NAT #### [facility] [address] [address] [address] Keturah Fisher LIPASEon 08-26-2021 Lipase [Catalytic activity/Vol] 146.0 U/L Normal 73.0-393.0 [facility] Comment on above: Performed By: #### A MY, CMP, LIPA ####[facility] [address] [place] [address]DrGopal Fisher PROF 14(COMP METB)on 022 Albumin [Mass/Vol] 3.5 g/dL Normal 3.4-5.0 [facility] Comment on above: Performed By: #### A MY, CMP, LIPA ####[facility] [address] [place] [address]DrGopal Fisher Albumin/Globulin [Mass ratio] 1.1 {ratio} Normal [facility] Comment on above: Performed By: #### A MY, CMP, LIPA ####[facility] [address] [place] [address]Dr. Keturah Fisher ALP [Catalytic activity/Vol] 139 U/L Critically high 46-116 [facility] Comment on above: Performed By: #### A MY, CMP, LIPA ####[facility] [address] [place] [address]Dr. Keturah Fisher ALT [Catalytic activity/Vol] 21 U/L Normal 14-59 [facility] Comment on above: Performed By: #### A MY, CMP, LIPA ####[facility] [address] [place] [address]Dr. Keturah Fisher Anion gap [Moles/Vol] 11.4 mmol/L Normal [facility] Comment on above: Performed By: #### A MY, CMP, LIPA ####[facility] [address] [place] [address]Dr. Keturah Fisher AST [Catalytic activity/Vol] 21 U/L Normal 15-37 [facility] Comment on above: Performed By: #### A MY, CMP, LIPA ####[facility] [address] [place] [address]Dr. Yilan Fisher Bilirubin [Mass/Vol] 0.2 mg/dL Normal 0.2-1.0 The [facility] Comment on above: Performed By: #### A MY, CMP, LIPA ####[facility] [address] [place] [address]Dr. Keturah Fisher Calcium [Mass/Vol] 9.2 mg/dL Normal 8.5-10.1 [facility] Comment on above: Performed By: #### A MY, CMP, LIPA ####[facility] [address] [place] [address]Dr. Keturah Fisher Chloride [Moles/Vol] 107 mmol/L Normal 98-107 The [facility] Comment on above: Performed By: #### A MY, CMP, LIPA ####[facility] [address] [place], [place] [address]Dr. Keturah Fisher CO2 [Moles/Vol] 27.9 mmol/L Normal 21.0-32.0 The [facility] Comment on above: Performed By: #### A MY, CMP, LIPA ####[facility] [address] [place], [place] [address]Dr. Keturah Fisher Creatinine [Mass/Vol] 0.84 mg/dL Normal 0.55-1.02 The [facility] Comment on above: Performed By: #### A MY, CMP, LIPA ####[facility] [address] [place] [address]Dr. Keturah Fisher EGFR-AF NIGERIEN >60 Normal >=60 The [facility] Comment on above: Performed By: #### A MY, CMP, LIPA ####[facility] [address] [place], [place] [address]Dr. Keturah Fisher EGFR-NON AF NIGERIEN >60 Normal >=60 The [facility] Comment on above: Performed By: #### A MY, CMP, LIPA ####[facility] [address] [place] [address]Dr. Keturah Fisher Globulin (S) [Mass/Vol] 3.3 g/dL Normal The [facility] Comment on above: Performed By: #### A MY, CMP, LIPA ####[facility] [id number] [place] [id number]. Keturah Fisher Glucose [Mass/Vol] 106 mg/dL Normal 74-106 [facility] Comment on above: Performed By: #### A MY, CMP, LIPA ####[facility] [address] [place] [address] [address]Dr. Keturah Fisher Potassium [Moles/Vol] 4.3 mmol/L Normal 3.5-5.1 The [facility] Comment on above: Performed By: #### A MY, CMP, LIPA ####[facility] [address] [place] [address] [address]Dr. Keturah Fisher Protein [Mass/Vol] 6.8 g/dL Normal 6.4-8.2 [facility] Comment on above: Performed By: #### A MY, CMP, LIPA ####[facility] [address] [place] [address]Dr. Keturah Fisher Sodium [Moles/Vol] 142 mmol/L Normal 136-145 [facility] Comment on above: Performed By: #### A MY, CMP, LIPA ####[facility] [address] [place] [address]Dr. Keturah Fisher Urea nitrogen [Mass/Vol] 11.0 mg/dL Normal 7.0-18.0 The [facility] Comment on above: Performed By: #### A MY, CMP, LIPA ####[facility] [address] [place] [address] [address]Dr. Keturah Fisher Urea nitrogen/Creatinine [Mass ratio] 13.1 mg/mg Normal [facility] Comment on above: Performed By: #### A MY, CMP, LIPA ####[facility] [address] [place] [address]Dr. Keturah Fisher XR ABD FLAT UP_PA Jorje 08-26 XR ABD FLAT UP_PA CH EXAM: XR ABD FLAT U P_PA CH HISTORY: NAUSEA WITH VOMITING, UNSPECIFIED COMPARISON: [...] MILADIS BARRERA Date: 2021-08-26 04:59 Normal The [facility] AMYLASEon 08-22-2021 Amylase [Catalytic activity/Vol] 155 U/L Critically high 25-115 The [facility] Comment on above: Performed By: #### C MP, NAT, LIPA #### [facility] Laboratory [address] [address] [address] Keturah Fisher CBC AUTO DIFFon 08-22-2021 BASO # 0.1 103/ul Normal 0.0-0.1 [facility] Comment on above: Performed By: #### L IPA, CMP, CRP, NAT #### [facility] Laboratory [address] [place] [address] Dr. Keturah Fisher Basophils/100 WBC (Bld) 0.7 % Normal 0.2-2.0 [facility] Comment on above: Performed By: #### L IPA, CMP, CRP, NAT #### [facility] [address] [address] [address] Keturah Fisher EO # 0.1 103/ul Normal 0.0-0.7 The [facility] Comment on above: Performed By: #### L IPA, CMP, CRP, NAT #### [facility] Laboratory [address] [place] [address] Dr. Keturah Fisher Eosinophils/100 WBC (Bld) 0.7 % Critically low 0.9-7.0 [facility] Comment on above: Performed By: #### L IPA, CMP, CRP, NAT #### [facility] [address] [place] [address] Dr. Keturah Fisher Erythrocyte distribution width (RBC) [Ratio] 13.2 % Normal 11.0-15.0 [facility] Comment on above: Performed By: #### L IPA, CMP, CRP, NAT #### [facility] [address] [address] [address] Keturah Fisher Hematocrit (Bld) [Volume fraction] 41.1 % Normal 36.0-48.0 [facility] Comment on above: Performed By: #### L IPA, CMP, CRP, NAT #### [facility] [address] [address] [address] Keturah Fisher Hemoglobin (Bld) [Mass/Vol] 13.8 g/dL Normal 12.0-16.0 [facility] Comment on above: Performed By: #### L IPA, CMP, CRP, NAT #### [facility] [address] [place] [address] Dr. Keturah Fisher IG # 0.03 10e3/ul Normal 0.00-0.03 [facility] Comment on above: Performed By: #### L IPA, CMP, CRP, NAT #### [facility] [address] [address] [address] Keturah Fisher IG % 0.2 % Normal 0.0-0.5 [facility] Comment on above: Performed By: #### L IPA, CMP, CRP, NAT #### [facility] [address] [place] [address] Dr. Keturah Fisher LYMPH # 2.6 103/ul Normal 1.2-3.8 The [facility] Comment on above: Performed By: #### L IPA, CMP, CRP, NAT #### [facility] [address] [place] [address] Dr. Keturah Fisher Lymphocytes/100 WBC (Bld) 21.4 % Normal 20.5-60.0 [facility] Comment on above: Performed By: #### L IPA, CMP, CRP, NAT #### [facility] [address] [address] [address] Keturah Fisher MANUAL DIFF REQ NO Normal [facility] Comment on above: Performed By: #### L IPA, CMP, CRP, NAT #### [facility] [address] [place] [address] Dr. Keturah Fisher MCH (RBC) [Entitic mass] 32.2 pg Normal 26.7-34.0 [facility] Comment on above: Performed By: #### L IPA, CMP, CRP, NAT #### [facility] [address] [place] [address] Dr. Keturah Fisher MCHC (RBC) [Mass/Vol] 33.6 g/dL Normal 29.9-35.2 The [facility] Comment on above: Performed By: #### L IPA, CMP, CRP, NAT #### [facility] [address] [place] [address] Dr. Keturah Fisher MCV (RBC) [Entitic vol] 95.8 fL Normal 81.0-99.0 [facility] Comment on above: Performed By: #### L IPA, CMP, CRP, NAT #### [facility] [address] [place] [address] Dr. Keturah Fisher MONO # 0.9 103/ul Critically high 0.3-0.8 The [facility] Comment on above: Performed By: #### L IPA, CMP, CRP, NAT #### [facility] [address] [place] [address] Dr. Keturah Fisher Monocytes/100 WBC (Bld) 7.6 % Normal 1.7-12.0 [facility] Comment on above: Performed By: #### L IPA, CMP, CRP, NAT #### [facility] [address] [place] [address] Dr. Keturah Fisher NEUT # 8.5 103/ul Critically high 1.4-6.5 The [facility] Comment on above: Performed By: #### L IPA, CMP, CRP, NAT #### [facility] [address] [place] [address] Dr. Keturah Fisher Neutrophils/100 WBC (Bld) 69.4 % Normal 43.0-75.0 The [facility] Comment on above: Performed By: #### L IPA, CMP, CRP, NAT #### [facility] [address] [place] [address] Dr. Keturah Fisher Platelet mean volume (Bld) [Entitic vol] 9.5 fL Normal 9.5-13.5 [facility] Comment on above: Performed By: #### L IPA, CMP, CRP, NAT #### [facility] [address] [place] [address] Dr. Keturah Fisher PLT 261 103/ul Normal 150-450 The [facility] Comment on above: Performed By: #### L IPA, CMP, CRP, NAT #### [facility] [address] [place] [address] Dr. Keturah Fisher RBC 4.29 106/ul Normal 4.20-5.40 [facility] Comment on above: Performed By: #### L IPA, CMP, CRP, NAT #### [facility] [address] [place] [address] Dr. Keturah Fisher WBC 12.2 103/ul Critically high 4.0-11.0 [facility] Comment on above: Performed By: #### L IPA, CMP, CRP, NAT #### [facility] [address] [place] [address] Dr. Keturah Fisher LIPASEon 08-22-2021 Lipase [Catalytic activity/Vol] 419.0 U/L Critically high 73.0-393.0 [facility] Comment on above: Performed By: #### C MP, NAT, LIPA #### [facility] [address] [place] [address] Dr. Keturah Fisher PROF 14(COMP METB)on 022 Albumin [Mass/Vol] 3.9 g/dL Normal 3.4-5.0 [facility] Comment on above: Performed By: #### C MP, NAT, LIPA #### [facility] [address] [place] [address] Dr. Keturah Fisher Albumin/Globulin [Mass ratio] 1.2 {ratio} Normal [facility] Comment on above: Performed By: #### C MP, NAT, LIPA #### [facility] [address] [place] [address] Dr. Keturah Fisher ALP [Catalytic activity/Vol] 137 U/L Critically high 46-116 [facility] Comment on above: Performed By: #### C NAT MEDEL LIPA #### [facility] [address] [address] [address] Keturah Fisher ALT [Catalytic activity/Vol] 22 U/L Normal 14-59 [facility] Comment on above: Performed By: #### C NAT MEDEL LIPA #### [facility] [address] [place] [address] Dr. Keturah Fisher Anion gap [Moles/Vol] 12.9 mmol/L Normal [facility] Comment on above: Performed By: #### C NAT MEDEL LIPA #### [facility] [address] [place] [address] Dr. Keturah Fisher AST [Catalytic activity/Vol] 20 U/L Normal 15-37 [facility] Comment on above: Performed By: #### C NAT MEDEL LIPA #### [facility] [address] [place] [address] Dr. Keturah Fisher Bilirubin [Mass/Vol] 0.2 mg/dL Normal 0.2-1.0 [facility] Comment on above: Performed By: #### C NAT MEDEL LIPA #### [facility] [address] [place] [address] Dr. Keturah Fisher Calcium [Mass/Vol] 9.5 mg/dL Normal 8.5-10.1 [facility] Comment on above: Performed By: #### C NAT MEDEL, LIPA #### [facility] [address] [place] [address] Dr. Keturah Fisher Chloride [Moles/Vol] 104 mmol/L Normal 98-107 [facility] Comment on above: Performed By: #### C NAT MEDEL, LIPA #### [facility] [address] [place] [address] Dr. Keturah Fisher CO2 [Moles/Vol] 23.7 mmol/L Normal 21.0-32.0 [facility] Comment on above: Performed By: #### C NAT MEDEL LIPA #### [facility] [address] [address] [address] Keturah Fisher Creatinine [Mass/Vol] 0.85 mg/dL Normal 0.55-1.02 [facility] Comment on above: Performed By: #### C MP, NAT, LIPA #### [facility] [address] [address] [address] Keturah Fisher EGFR-AF NIGERIEN >60 Normal >=60 [facility] Comment on above: Performed By: #### C MP, NAT, LIPA #### [facility] [address] [address] [address] Keturah Fisher EGFR-NON AF NIGERIEN >60 Normal >=60 [facility] Comment on above: Performed By: #### C MP, NAT, LIPA #### [facility] [address] [address] [address] Keturah Fisher Globulin (S) [Mass/Vol] 3.3 g/dL Normal [facility] Comment on above: Performed By: #### C MP, NAT, LIPA #### [facility] [address] [address] [address] Keturah Fisher Glucose [Mass/Vol] 130 mg/dL Critically high 74-106 [facility] Comment on above: Performed By: #### C MP, NAT, LIPA #### [facility] [address] [address] [address] Keturah Fisher Potassium [Moles/Vol] 3.6 mmol/L Normal 3.5-5.1 [facility] Comment on above: Performed By: #### C MP, NAT, LIPA #### [facility] [address] [address] [address] Keturah Fisher Protein [Mass/Vol] 7.2 g/dL Normal 6.4-8.2 [facility] Comment on above: Performed By: #### C MP, NAT, LIPA #### [facility] [address] [address] [address] Keturah Fisher Sodium [Moles/Vol] 137 mmol/L Normal 136-145 [facility] Comment on above: Performed By: #### C MP NAT, LIPA #### [facility] [address] [address] [address] Keturah Fisher Urea nitrogen [Mass/Vol] 9.0 mg/dL Normal 7.0-18.0 [facility] Comment on above: Performed By: #### C MP NAT, LIPA #### [facility] [address] [address] [address] Keturah Fisher Urea nitrogen/Creatinine [Mass ratio] 10.6 mg/mg Normal [facility] Comment on above: Performed By: #### C MP NTA, LIPA #### [facility] [address] [address] [address] Keturah Fisher XR ABD FLAT UP_PA [...] TRI HANSON Date: 2021-08-22 14:54 Normal The [facility] CBC AUTO DIFFon 08-13-2021 BASO # 0.1 103/ul Normal 0.0-0.1 [facility] Comment on above: Performed By: #### C BC ####[facility] [address] [place], [place] [address]Dr. Keturah Fisher Basophils/100 WBC (Bld) 0.6 % Normal 0.2-2.0 [facility] Comment on above: Performed By: #### C BC ####[facility] [address] [place], [place] [address]HlDr. Keturah Fisher EO # 0.1 103/ul Normal 0.0-0.7 [facility] Comment on above: Performed By: #### C BC ####[facility] [address] [place] [address]Dr. Keturah Fisher Eosinophils/100 WBC (Bld) 1.1 % Normal 0.9-7.0 The [facility] Comment on above: Performed By: #### C BC ####[facility] [address] [place], [place] [address]Dr. Keturah Fisher Erythrocyte distribution width (RBC) [Ratio] 12.6 % Normal 11.0-15.0 The [facility] Comment on above: Performed By: #### C BC ####[facility] [address] [place], [place] [address]Dr. Keturah Fisher Hematocrit (Bld) [Volume fraction] 42.3 % Normal 36.0-48.0 The [facility] Comment on above: Performed By: #### C BC ####[facility] [address] [place], [place] [address]Dr. Keturah Fisher Hemoglobin (Bld) [Mass/Vol] 14.1 g/dL Normal 12.0-16.0 The [facility] Comment on above: Performed By: #### C BC ####[facility] [address] [place], [place] [address]Dr. Keturah Fisher IG # 0.03 10e3/ul Normal 0.00-0.03 The [facility] Comment on above: Performed By: #### C BC ####[facility] [address] [place], [place] [address]Dr. Keturah Fisher IG % 0.3 % Normal 0.0-0.5 The [facility] Comment on above: Performed By: #### C BC ####[facility] [address] [place], [place] [address]Dr. Keturah Fisher LYMPH # 2.4 103/ul Normal 1.2-3.8 The [facility] Comment on above: Performed By: #### C BC ####[facility] [address] [place], [place] [address]Dr. Keturah Fisher Lymphocytes/100 WBC (Bld) 22.3 % Normal 20.5-60.0 The [facility] Comment on above: Performed By: #### C BC ####[facility] [address] [place] [id number]. Keturah Fisher MANUAL DIFF REQ NO Normal [facility] Comment on above: Performed By: #### C BC ####[facility] [address] [place] [id number]. Keturah Fisher MCH (RBC) [Entitic mass] 32.5 pg Normal 26.7-34.0 [facility] Comment on above: Performed By: #### C BC ####[facility] [address] [place] [id number]. Keturah Fisher MCHC (RBC) [Mass/Vol] 33.3 g/dL Normal 29.9-35.2 The [facility] Comment on above: Performed By: #### C BC ####[facility] [address] [place], [place] [address]Dr. Keturah Fisher MCV (RBC) [Entitic vol] 97.5 fL Normal 81.0-99.0 [facility] Comment on above: Performed By: #### C BC ####[facility] [address] [place], [place] [address]Dr. Keturah Fisher MONO # 1.0 103/ul Critically high 0.3-0.8 The [facility] Comment on above: Performed By: #### C BC ####[facility] [address] [place], [place] [address]Dr. Keturah Fisher Monocytes/100 WBC (Bld) 8.7 % Normal 1.7-12.0 The [facility] Comment on above: Performed By: #### C BC ####[facility] [address] [place], [place] [address]DrGopal Fisher NEUT # 7.3 103/ul Critically high 1.4-6.5 The [facility] Comment on above: Performed By: #### C BC ####[facility] [address] [place], [place] [address]DrGopal Fisher Neutrophils/100 WBC (Bld) 67.0 % Normal 43.0-75.0 The [facility] Comment on above: Performed By: #### C BC ####[facility] [address] [place], [place] [address]Lw. Keturah Fisher Platelet mean volume (Bld) [Entitic vol] 9.5 fL Normal 9.5-13.5 [facility] Comment on above: Performed By: #### C BC ####[facility] [address] [place] [id number]. Keturah Fisher PLT 272 103/ul Normal 150-450 The [facility] Comment on above: Performed By: #### C BC ####[facility] [address] [place], [place] [address]Ch. Keturah Fisher RBC 4.34 106/ul Normal 4.20-5.40 [facility] Comment on above: Performed By: #### C BC ####[facility] [address] [place] [id number]. Keturah Fisher WBC 10.9 103/ul Normal 4.0-11.0 [facility] Comment on above: Performed By: #### C BC ####[facility] [address] [place], [place] [address]. [address] Fisher CT ABD/PELV W CONon 08-14-19 [...] HEBERT MCPHERSON Date: 2021-08-13 17:14 Normal The [facility] ER URINE PROFILEon 2 Bilirubin Ql (U) Negative Normal NEGATIVE The [facility] Comment on above: Performed By: #### C BC #### [facility] Laboratory [address] [place] [address] Dr. Keturah Fisher Clarity (U) CLEAR Normal CLEAR The [facility] Comment on above: Performed By: #### C BC #### [facility] [address] [address] [address] Keturah Fisher Color (U) LT. YELLOW Normal YELLOW The [facility] Comment on above: Performed By: #### C BC #### [facility] [address] [address] [address] Keturah Fisher ERUAHD A micrscopic examina tion will be performed if indicated. Normal [facility] Comment on above: Performed By: #### C BC #### [facility] [address] [place] [address] Dr. Keturah Fisher Glucose Ql (U) Negative Normal NEGATIVE [facility] Comment on above: Performed By: #### C BC #### [facility] [address] [place] [address] Dr. Keturah Fisher Hemoglobin Ql (U) Negative Normal NEGATIVE [facility] Comment on above: Performed By: #### C BC #### [facility] [address] [address] [address] Keturah Fisher Ketones Ql (U) Negative Normal NEGATIVE [facility] Comment on above: Performed By: #### C BC #### [facility] [address] [place] [address] Dr. Keturah Fisher LEUKOCYTES Negative Normal NEGATIVE [facility] Comment on above: Performed By: #### C BC #### [facility] [address] [place] [address] Dr. Keturah Fisher Nitrite Ql (U) Negative Normal NEGATIVE [facility] Comment on above: Performed By: #### C BC #### [facility] [address] [place] [address] Dr. Keturah Fisher pH (U) 5.5 [pH] Normal 5-9 [facility] Comment on above: Performed By: #### C BC #### [facility] [address] [place] [address] Dr. Keturah Fisher SPEC GRAVITY 1.010 Normal 1.005-<=1. 025 [facility] Comment on above: Performed By: #### C BC #### [facility] [address] [place] [address] Dr. Keturah Fisher UA PROTEIN Negative Normal NEGATIVE/ TRACE The [facility] Comment on above: Performed By: #### C BC #### [facility] [address] [place] [address] Dr. Keturah Fisher UR MICRO IND NOT INDICATED Normal The [facility] Comment on above: Performed By: #### C BC #### [facility] [address] [place] [address] Dr. Keturah Fisher Urobilinogen Qn (U) 0.2 {Marizol'U}/dL Normal 0.2 - 1. 0 [facility] Comment on above: Performed By: #### C BC #### [facility] [address] [place] [address] Dr. Keturah Fisher LIPASEon 08-13-2021 Lipase [Catalytic activity/Vol] 217.0 U/L Normal 73.0-393.0 [facility] Comment on above: Performed By: #### C BC #### [facility] [address] [place] [address] Dr. Keturah Fisher PROF 14(COMP METB)on 022 Albumin [Mass/Vol] 3.9 g/dL Normal 3.4-5.0 [facility] Comment on above: Performed By: #### C BC #### [facility] [address] [place] [address] Dr. Keturah Fisher Albumin/Globulin [Mass ratio] 1.1 {ratio} Normal [facility] Comment on above: Performed By: #### C BC #### [facility] [address] [place] [address] Dr. Keturah Fisher ALP [Catalytic activity/Vol] 140 U/L Critically high 46-116 [facility] Comment on above: Performed By: #### C BC #### [facility] [address] [place] [address] Dr. Keturah Fisher ALT [Catalytic activity/Vol] 24 U/L Normal 14-59 [facility] Comment on above: Performed By: #### C BC #### [facility] [address] [place] [address] Dr. Keturah Fisher Anion gap [Moles/Vol] 11.7 mmol/L Normal [facility] Comment on above: Performed By: #### C BC #### [facility] [address] [place] [address] Dr. Keturah Fisher AST [Catalytic activity/Vol] 19 U/L Normal 15-37 [facility] Comment on above: Performed By: #### C BC #### [facility] [address] [address] [address] Keturah Fisher Bilirubin [Mass/Vol] 0.2 mg/dL Normal 0.2-1.0 [facility] Comment on above: Performed By: #### C BC #### [facility] [address] [address] [address] Keturah Fisher Calcium [Mass/Vol] 9.9 mg/dL Normal 8.5-10.1 [facility] Comment on above: Performed By: #### C BC #### [facility] [address] [address] [address] Keturah Fisher Chloride [Moles/Vol] 105 mmol/L Normal 98-107 [facility] Comment on above: Performed By: #### C BC #### [facility] [address] [place] [address] Dr. Keturah Fisher CO2 [Moles/Vol] 29.1 mmol/L Normal 21.0-32.0 [facility] Comment on above: Performed By: #### C BC #### [facility] [address] [place] [address] Dr. Keturah Fisher Creatinine [Mass/Vol] 0.81 mg/dL Normal 0.55-1.02 [facility] Comment on above: Performed By: #### C BC #### [facility] [address] [place] [address] Dr. Keturah Fisher EGFR-AF NIGERIEN >60 Normal >=60 [facility] Comment on above: Performed By: #### C BC #### [facility] [address] [place] [address] Dr. Keturah Fisher EGFR-NON AF NIGERIEN >60 Normal >=60 [facility] Comment on above: Performed By: #### C BC #### [facility] [address] [place] [address] Dr. Keturah Fisher Globulin (S) [Mass/Vol] 3.4 g/dL Normal [facility] Comment on above: Performed By: #### C BC #### [facility] [address] [place] [address] Dr. Keturah Fisher Glucose [Mass/Vol] 87 mg/dL Normal 74-106 [facility] Comment on above: Performed By: #### C BC #### [facility] [address] [address] [address] Keturah Fisher Potassium [Moles/Vol] 3.8 mmol/L Normal 3.5-5.1 [facility] Comment on above: Performed By: #### C BC #### [facility] [address] [address] [address] Keturah Fisher Protein [Mass/Vol] 7.3 g/dL Normal 6.4-8.2 [facility] Comment on above: Performed By: #### C BC #### [facility] [address] [address] [address] Keturah Fisher Sodium [Moles/Vol] 142 mmol/L Normal 136-145 [facility] Comment on above: Performed By: #### C BC #### [facility] [address] [address] [address] Keturah Fisher Urea nitrogen [Mass/Vol] 11.0 mg/dL Normal 7.0-18.0 [facility] Comment on above: Performed By: #### C BC #### [facility] [address] [address] [address] Keturah Fisher Urea nitrogen/Creatinine [Mass ratio] 13.6 mg/mg Normal [facility] Comment on above: Performed By: #### C BC #### [facility] [address] [address] [address] Keturah Fisher Albumin [Mass/volume] in Ser um or PlasmaOrdered By: Keaton Barnard on 08-11-2021 Albumin [Mass/Vol] 3.4 g/dL 3.2-5.5 [facility] Basophils Auto (Bld) [#/Vol] Ordered By: Keaton Barnard on 08-11-2021 Basophils (Bld) [#/Vol] 0.1 10*3/uL 0.0-0.2 [facility] Basophils/100 WBC Auto (Bld) Ordered By: Keaton Barnard on 08-11-2021 Basophils/100 WBC (Bld) 0.9 % . [facility] Bilirubin Test strip Ql (U)O rdered By: Keaton Barnard on 08-11-2021 Bilirubin Ql (U) Negative Negative [facility] Blood hemoglobin measurement (mass/volume)Ordered By: Keaton Barnard on 08-11-2021 Hemoglobin (Bld) [Mass/Vol] 14.1 g/dL 11.8-15.4 [facility] Blood leukocytes automated c ount (number/volume)Ordered By: Keaton Barnard on 08-11-2021 WBC (Bld) [#/Vol] 9.7 10*3/uL 4.5-11.0 [facility] Color Auto (U)Ordered By: Herminia Barnard on 08-11-2021 Color (U) Yellow Yellow [facility] Creatinine and Glomerular fi ltration rate.predicted panel (S/P/Bld)Ordered By: Keaton Barnard on 08-11-2021 Creatinine [Mass/Vol] 0.95 mg/dL 0.44-1.03 [facility] Direct bilirubin measurement Ordered By: Keaton Barnard on 08-11-2021 Bilirubin.direct [Mass/Vol] mg/dL 0.0-0.4 [facility] Eosinophils Auto (Bld) [#/Vo l]Ordered By: Keaton Barnard on 08-11-2021 Eosinophils (Bld) [#/Vol] 0.1 10*3/uL 0.0-0.45 [facility] Eosinophils/100 WBC Auto (Bl d)Ordered By: Keaton Barnard on 08-11-2021 Eosinophils/100 WBC (Bld) 1.3 % . [facility] Erythrocyte distribution wid th Auto (RBC) [Ratio]Ordered By: Keaton Barnard on 08-11-2021 Erythrocyte distribution width (RBC) [Ratio] 13.2 % 11.9-15.3 [facility] Estimated glomerular filtrat ion rate (GFR) non- AmericanOrdered By: Keaton Barnard on 08-11-2021 GFR/1.73 sq M.predicted among non-blacks MDRD (S/P/Bld) [Vol rate/Area] > 60 mL/Min [facility] Globulin Calc (S) [Mass/Vol] Ordered By: Keaton Barnard on 08-11-2021 Globulin (S) [Mass/Vol] 2.6 g/dL [facility] Hematocrit Auto (Bld) [Volum e fraction]Ordered By: Keaton Barnard on 08-11-2021 Hematocrit (Bld) [Volume fraction] 42.1 % 34.0-46.4 [facility] Ketones Auto test strip (U) [Mass/Vol]Ordered By: Keaton Barnard on 08-11-2021 Ketones (U) [Mass/Vol] Negative Negative [facility] - Chemistry and C hemistry - challengeOrdered By: Keaton Barnard on 08-11-2021 Lipase [Catalytic activity/Vol] 89.0 U/L 22-51 [facility] Laboratory - CoagulationOrde red By: Keaton Barnard on 08-11-2021 PT Coag (PPP) [Time] 12.5 s 9.0-12.9 [facility] - Hematology and Cell countsOrdered By: Keaton Barnard on 08-11-2021 Nucleated RBC/100 WBC (Bld) [Ratio] 0.1 % 0-0.5 [facility] Lymphocytes Auto (Bld) [#/Vo l]Ordered By: Keaton Barnard on 08-11-2021 Lymphocytes (Bld) [#/Vol] 2.5 10*3/uL 1.00-4.8 [facility] Lymphocytes/100 WBC Auto (Bl d)Ordered By: Keaton Barnard on 08-11-2021 Lymphocytes/100 WBC (Bld) 25.8 % . [facility] MCH Auto (RBC) [Entitic mass ]Ordered By: Keaton Barnard on 08-11-2021 MCH (RBC) [Entitic mass] 32.4 pg 24.7-34.3 [facility] MCHC Auto (RBC) [Mass/Vol]Or dered By: Keaton Barnard on 08-11-2021 MCHC (RBC) [Mass/Vol] 33.4 g/dL 32.0-35.0 [facility] MCV Auto (RBC) [Entitic vol] Ordered By: Keaton Barnard on 08-11-2021 MCV (RBC) [Entitic vol] 96.8 fL 80-100 [facility] Monocytes Auto (Bld) [#/Vol] Ordered By: Keaton Barnard on 08-11-2021 Monocytes (Bld) [#/Vol] 0.8 10*3/uL 0.0-0.8 [facility] Monocytes/100 WBC Auto (Bld) Ordered By: Keaton Barnard on 08-11-2021 Monocytes/100 WBC (Bld) 8.7 % . [facility] Neutrophils Auto (Bld) [#/Vo l]Ordered By: Keaton Barnard on 08-11-2021 Neutrophils (Bld) [#/Vol] 6.1 10*3/uL 1.8-7.7 [facility] Neutrophils/100 WBC Auto (Bl d)Ordered By: Keaton Barnard on 08-11-2021 Neutrophils/100 WBC (Bld) 63.3 % . [facility] Nitrite Test strip Ql (U)Ord ered By: Keaton Barnard on 08-11-2021 Nitrite Ql (U) Negative Negative [facility] No Panel InformationOrdered By: Keaton Barnard on 08-11-2021 Estimated GFR () > 60 mL/Min [facility] Comment on above: GFR estimated refere nce range: According to KDOQI guidelines, <60 ml/min/1.73m2 is sufficient to diagnose a patient with chronic kidney disease. Pharmacy Creatinine Clearance (Chem 62.33 [facility] Platelet mean volume Auto (B ld) [Entitic vol]Ordered By: Keaton Barnard on 08-11-2021 Platelet mean volume (Bld) [Entitic vol] 8.0 fL 6.3-10.7 [facility] Platelet poor plasma interna tional normalized ratio (INR) by coagulation assay (relatOrdered By: Keaton Barnard on 08-11-2021 INR Coag (PPP) [Relative time] 1.1 {INR} [facility] Comment on above: INR Therapeutic [...] (Bld) [#/Vol] 252 10*3/uL 150-450 [facility] Protein Auto test strip (U) [Mass/Vol]Ordered By: Keaton Barnard on 08-11-2021 Protein (U) [Mass/Vol] Negative Negative Fi [facility] Protein [Mass/volume] in Ser um or PlasmaOrdered By: Keaton Barnard on 08-11-2021 Protein [Mass/Vol] 6.0 g/dL 6.1-7.9 [facility] RBC Auto (Bld) [#/Vol]Ordere d By: Keaton Barnard on 08-11-2021 RBC (Bld) [#/Vol] 4.35 10*6/uL 3.60-5.00 [facility] Serum or plasma alanine hughes otransferase measurement without P-5'-P (enzymatic activiOrdered By: Keaton Barnard on 08-11-2021 ALT No additional P-5'-P [Catalytic activity/Vol] 12 U/L 10-60 [facility] Serum or plasma albumin/glob ulin mass ratioOrdered By: Keaton Barnard on 08-11-2021 Albumin/Globulin [Mass ratio] 1.3 {ratio} [facility] Serum or plasma alkaline jaqueline sphatase measurement (enzymatic activity/volume)Ordered By: Keaton Barnard on 08-11-2021 ALP [Catalytic activity/Vol] 98 U/L 32-92 [facility] Serum or plasma aspartate am inotransferase measurement (enzymatic activity/volume)Ordered By: Keaton Barnard on 08-11-2021 AST [Catalytic activity/Vol] 17 U/L 10-42 [facility] Serum or plasma calcium priscilla urement (mass/volume)Ordered By: Keaton Barnard on 08-11-2021 Calcium [Mass/Vol] 9.3 mg/dL 8.2-10.2 [facility] Serum or plasma chloride daron surement (moles/volume)Ordered By: Keaton Barnard on 08-11-2021 Chloride [Moles/Vol] 104 mmol/L 95-114 [facility] Serum or plasma glucose priscilla urement (mass/volume)Ordered By: Keaton Barnard on 08-11-2021 Glucose [Mass/Vol] 95 mg/dL 70-100 [facility] Comment on above: ADA recommended refe rence range Random Glucose Reference Range is dependent on time and content of last meal. Glucose of more than 200 mg/dL in a nonstressed, ambulatory subject supports the diagnosis of Diabetes Mellitus. Serum or plasma non-glucuron idated bilirubin measurement (mass/volume)Ordered By: Keaton Barnard on 08-11-2021 Bilirubin.indirect [Mass/Vol] TNP [facility] Comment on above: Test not performed Serum or plasma potassium me asurement (moles/volume)Ordered By: Keaton Barnard on 08-11-2021 Potassium [Moles/Vol] 3.8 mmol/L 3.5-5.1 [facility] Serum or plasma sodium measu rement (moles/volume)Ordered By: Keaton Barnard on 08-11-2021 Sodium [Moles/Vol] 138 mmol/L 136-146 [facility] Serum or plasma total biliru bin measurement (mass/volume)Ordered By: Keaton Barnard on 08-11-2021 Bilirubin [Mass/Vol] 0.3 mg/dL 0.3-1.2 [facility] Serum or plasma total carbon dioxide measurement (moles/volume)Ordered By: Keaton Barnard on 08-11-2021 CO2 [Moles/Vol] 24.8 mmol/L 22.0-30.0 [facility] Serum or plasma urea nitroge n measurement (mass/volume)Ordered By: Keaton Barnard on 08-11-2021 Urea nitrogen [Mass/Vol] 10 mg/dL 9-23 [facility] Specific gravity Auto test s trip (U) [Rel density]Ordered By: Keaton Barnard on 08-11-2021 Specific gravity (U) [Rel density] 1.028 1.001-1.03 0 [facility] Troponin I.cardiac [Mass/vol ume] in Serum or Plasma by High sensitivity methodOrdered By: Keaton Barnard on 08-11-2021 Troponin I.cardiac High sensitivity method [Mass/Vol] 3 pg/mL 0-15 [facility] Urine clarity by refractomet ry automatedOrdered By: Keaton Barnard on 08-11-2021 Clarity Refractometry automated (U) Clear Clear [facility] Urine glucose measurement by automated test strip (mass/volume)Ordered By: Keaton Barnard on 08-11-2021 Glucose Auto test strip (U) [Mass/Vol] Normal mg/dL Normal [facility] Urine hemoglobin detection b y automated test stripOrdered By: Keaton Barnard on 08-11-2021 Hemoglobin Auto test strip Ql (U) Negative Negative [facility] Urine leukocyte esterase det ection by automated test stripOrdered By: Keaton Barnard on 08-11-2021 Leukocyte esterase Auto test strip Ql (U) Negative Negative [facility] Urobilinogen Auto test strip (U) [Mass/Vol]Ordered By: Keaton Barnard on 08-11-2021 Urobilinogen (U) [Mass/Vol] Normal mg/dL Normal [facility] pH Auto test strip (U)Ordere d By: Keaton Barnard on 08-11-2021 pH (U) 5.0 [pH] 5.0-9.0 [facility] AMYLASEon 07-31-2021 Amylase [Catalytic activity/Vol] 158 U/L Critically high 25-115 The [facility] Comment on above: Performed By: #### L IPA, CMP, CRP, NAT #### [facility] [address] [address] [address] Keturah Fisher CBC AUTO DIFFon 07-31-2021 BASO # 0.1 103/ul Normal 0.0-0.1 The [facility] Comment on above: Performed By: #### C BC ####[facility] [address] [address]DrGopal Fisher Basophils/100 WBC (Bld) 0.7 % Normal 0.2-2.0 The [facility] Comment on above: Performed By: #### C BC ####[facility] [address] [address]DrGopal Fisher EO # 0.1 103/ul Normal 0.0-0.7 The [facility] Comment on above: Performed By: #### C BC ####[facility] [address] [id number]. Keturah Fisher Eosinophils/100 WBC (Bld) 0.9 % Normal 0.9-7.0 [facility] Comment on above: Performed By: #### C BC ####[facility] [address] [id number]. Keturah Fisher Erythrocyte distribution width (RBC) [Ratio] 12.7 % Normal 11.0-15.0 [facility] Comment on above: Performed By: #### C BC ####[facility] [address] [id number]. Keturah Fisher Hematocrit (Bld) [Volume fraction] 43.2 % Normal 36.0-48.0 [facility] Comment on above: Performed By: #### C BC ####[facility] [address] [place], [place] [address]Dr. Keturah Fisher Hemoglobin (Bld) [Mass/Vol] 14.5 g/dL Normal 12.0-16.0 [facility] Comment on above: Performed By: #### C BC ####[facility] [address] [place], [place] [address]Dr. Keturah Fisher IG # 0.04 10e3/ul Critically high 0.00-0.03 [facility] Comment on above: Performed By: #### C BC ####[facility] [address] [place], [place] [address]Dr. Keturah Fisher IG % 0.4 % Normal 0.0-0.5 The [facility] Comment on above: Performed By: #### C BC ####[facility] [address] [place], [place] [address]Dr. Keturah Fisher LYMPH # 2.8 103/ul Normal 1.2-3.8 The [facility] Comment on above: Performed By: #### C BC ####[facility] [address] [place], [place] [address]Dr. Keturah Fisher Lymphocytes/100 WBC (Bld) 24.9 % Normal 20.5-60.0 [facility] Comment on above: Performed By: #### C BC ####[facility] [address] [address]Dr. Keturah Fisher MANUAL DIFF REQ NO Normal [facility] Comment on above: Performed By: #### C BC ####[facility] [address] [id number]. Keturah Phillip MCH (RBC) [Entitic mass] 32.7 pg Normal 26.7-34.0 The [facility] Comment on above: Performed By: #### C BC ####[facility] [address] [place], [place] [address]Dr. Keturah Phillip MCHC (RBC) [Mass/Vol] 33.6 g/dL Normal 29.9-35.2 [facility] Comment on above: Performed By: #### C BC ####[facility] [address] [place], [place] [address]Dr. Keturah Fisher MCV (RBC) [Entitic vol] 97.5 fL Normal 81.0-99.0 [facility] Comment on above: Performed By: #### C BC ####[facility] [address] [place], [place] [address]Dr. Elisaeli Phillip MONO # 0.9 103/ul Critically high 0.3-0.8 [facility] Comment on above: Performed By: #### C BC ####[facility] [address] [place], [place] [address]Dr. Keturah Fisher Monocytes/100 WBC (Bld) 8.1 % Normal 1.7-12.0 The [facility] Comment on above: Performed By: #### C BC ####[facility] [address] [address]Dr. Keturah Fisher NEUT # 7.3 103/ul Critically high 1.4-6.5 [facility] Comment on above: Performed By: #### C BC ####[facility] [address] [place], [place] [address]Dr. Keturah Fisher Neutrophils/100 WBC (Bld) 65.0 % Normal 43.0-75.0 The [facility] Comment on above: Performed By: #### C BC ####[facility] [address] [address]Dr. Keturah Fisher Platelet mean volume (Bld) [Entitic vol] 10.0 fL Normal 9.5-13.5 [facility] Comment on above: Performed By: #### C BC ####[facility] [address] [address]Dr. Keturah Fisher PLT 245 103/ul Normal 150-450 The [facility] Comment on above: Performed By: #### C BC ####[facility] [address] [id number]. Keturah Fisher RBC 4.43 106/ul Normal 4.20-5.40 [facility] Comment on above: Performed By: #### C BC ####[facility] [address] [address]Dr. Keturah Fisher WBC 11.2 103/ul Critically high 4.0-11.0 [facility] Comment on above: Performed By: #### C BC ####[facility] [address] [address]Dr. Keturah Fisher LIPASEon 07-31-2021 Lipase [Catalytic activity/Vol] 439.0 U/L Critically high 73.0-393.0 [facility] Comment on above: Performed By: #### L IPA, CMP, CRP, NAT #### [facility] [address] [place] [address] Dr. Keturah Fisher PROF 14(COMP METB)on 022 Albumin [Mass/Vol] 3.6 g/dL Normal 3.4-5.0 [facility] Comment on above: Performed By: #### L IPA, CMP, CRP, NAT #### [facility] [address] [address] [address] Keturah Fisher Albumin/Globulin [Mass ratio] 1.1 {ratio} Normal [facility] Comment on above: Performed By: #### L IPA, CMP, CRP, NAT #### [facility] [address] [place] [address] Dr. Keturah Fisher ALP [Catalytic activity/Vol] 119 U/L Critically high 46-116 [facility] Comment on above: Performed By: #### L IPA, CMP, CRP, NAT #### [facility] [address] [address] [address] Keturah Fisher ALT [Catalytic activity/Vol] 20 U/L Normal 14-59 [facility] Comment on above: Performed By: #### L IPA, CMP, CRP, NAT #### [facility] [address] [address] [address] Keturah Fisher Anion gap [Moles/Vol] 13.4 mmol/L Normal Th [facility] Comment on above: Performed By: #### L IPA, CMP, CRP, NAT #### [facility] [address] [place] [address] Dr. Keturah Fisher AST [Catalytic activity/Vol] 16 U/L Normal 15-37 [facility] Comment on above: Performed By: #### L IPA, CMP, CRP, NAT #### [facility] [address] [place] [address] Dr. Keturah Fisher Bilirubin [Mass/Vol] 0.1 mg/dL Critically low 0.2-1.0 [facility] Comment on above: Performed By: #### L IPA, CMP, CRP, NAT #### [facility] [address] [place] [address] Dr. Keturah Fisher Calcium [Mass/Vol] 8.9 mg/dL Normal 8.5-10.1 [facility] Comment on above: Performed By: #### L IPA, CMP, CRP, NAT #### [facility] [address] [place] [address] Dr. Keturah Fisher Chloride [Moles/Vol] 106 mmol/L Normal 98-107 [facility] Comment on above: Performed By: #### L IPA, CMP, CRP, NAT #### [facility] [address] [place] [address] Dr. Keturah Fisher CO2 [Moles/Vol] 25.4 mmol/L Normal 21.0-32.0 [facility] Comment on above: Performed By: #### L IPA, CMP, CRP, NAT #### [facility] [address] [address] [address] Keturah Fisher Creatinine [Mass/Vol] 0.73 mg/dL Normal 0.55-1.02 [facility] Comment on above: Performed By: #### L IPA, CMP, CRP, NAT #### [facility] [address] [address] [address] Keturah Fisher EGFR-AF NIGERIEN >60 Normal >=60 [facility] Comment on above: Performed By: #### L IPA, CMP, CRP, NAT #### [facility] [address] [address] [address] Keturah Fisher EGFR-NON AF NIGERIEN >60 Normal >=60 [facility] Comment on above: Performed By: #### L IPA, CMP, CRP, NAT #### [facility] [address] [address] [address] Keturah Fisher Globulin (S) [Mass/Vol] 3.2 g/dL Normal [facility] Comment on above: Performed By: #### L IPA, CMP, CRP, NAT #### [facility] [address] [address] [address] Keturah Fisher Glucose [Mass/Vol] 105 mg/dL Normal 74-106 [facility] Comment on above: Performed By: #### L IPA, CMP, CRP, NAT #### [facility] [address] [address] [address] Keturah Fisher Potassium [Moles/Vol] 3.8 mmol/L Normal 3.5-5.1 [facility] Comment on above: Performed By: #### L IPA, CMP, CRP, NAT #### [facility] [address] [address] [address] Keturah Fisher Protein [Mass/Vol] 6.8 g/dL Normal 6.4-8.2 [facility] Comment on above: Performed By: #### L IPA, CMP, CRP, NAT #### [facility] [address] [address] [address] Keturah Fisher Sodium [Moles/Vol] 141 mmol/L Normal 136-145 [facility] Comment on above: Performed By: #### L IPA, CMP, CRP, NAT #### [facility] [address] [address] [address] Keturah Fisher Urea nitrogen [Mass/Vol] 12.0 mg/dL Normal 7.0-18.0 [facility] Comment on above: Performed By: #### L IPA, CMP, CRP, NAT #### [facility] [address] [address] [address] Keturah Fisher Urea nitrogen/Creatinine [Mass ratio] 16.4 mg/mg Normal [facility] Comment on above: Performed By: #### L IPA, CMP, CRP, NAT #### [facility] [address] [place] [address] Dr. Keturah Fisher TROPONIN, HIGH SENSITIVITYon 07-31-2021 HSTROP 4.2 pg/mL Normal 4.0-51.3 [facility] Comment on above: Result Comment: CUT- OFF POINTS HAVE BEEN ESTABLISHED BASED ON THE FOURTH UNIVERSAL DEFINITIONS OF MYOCARDIAL INFARCTION. THE UPPER REFERENCE LIMIT (URL) OF TROPONIN, DEFINED THE 99TH PERCENTILE OF cTnI DISTRIBUTION IN A REFERENCE POPULATION, HAS BEEN CONFIRMED THE DECISION THRESHOLD FOR [place] DIAGNOSIS. Performed By: #### L IPA, CMP, CRP, NAT #### [facility] [address] [place] [address] Dr. Keturah Fisher AMYLASEon 07-19-2021 Amylase [Catalytic activity/Vol] 198 U/L Critically high 25-115 The [facility] Comment on above: Performed By: #### A MY, LIPA, CMP ####[facility] [address] [address]Dr. Ketuarh Fisher CBC AUTO DIFFon 07-19-2021 BASO # 0.1 103/ul Normal 0.0-0.1 The [facility] Comment on above: Performed By: #### C BC ####[facility] [address] [address]Dr. Keturah Fisher Basophils/100 WBC (Bld) 0.7 % Normal 0.2-2.0 [facility] Comment on above: Performed By: #### C BC ####[facility] [address] [id number]. Keturah Fisher EO # 0.1 103/ul Normal 0.0-0.7 The [facility] Comment on above: Performed By: #### C BC ####[facility] [address] [place], [place] [id number]. Keturah Fisher Eosinophils/100 WBC (Bld) 1.0 % Normal 0.9-7.0 The [facility] Comment on above: Performed By: #### C BC ####[facility] [address] [place], [place] [address]Dr. Keturah Fisher Erythrocyte distribution width (RBC) [Ratio] 12.5 % Normal 11.0-15.0 The [facility] Comment on above: Performed By: #### C BC ####[facility] [address] [place], [place] [address]Dr. Keturah Fisher Hematocrit (Bld) [Volume fraction] 42.4 % Normal 36.0-48.0 [facility] Comment on above: Performed By: #### C BC ####[facility] [address] [place], [place] [address]Dr. Keturah Fisher Hemoglobin (Bld) [Mass/Vol] 14.2 g/dL Normal 12.0-16.0 The [facility] Comment on above: Performed By: #### C BC ####[facility] [id number] [address] [place], [place] [address]Dr. Keturah Fisher IG # 0.03 10e3/ul Normal 0.00-0.03 The [facility] Comment on above: Performed By: #### C BC ####[facility] Nf[address] [place], [place] [address]Dr. Keturah Fisher IG % 0.3 % Normal 0.0-0.5 The [facility] Comment on above: Performed By: #### C BC ####[facility] Hzsxdvarye[address] [place], [place] [address]Dr. Keturah Fisher LYMPH # 3.0 103/ul Normal 1.2-3.8 The [facility] Comment on above: Performed By: #### C BC ####[facility] Jpxzxn[address]uq[address] [place] [id number]. Keturah Phillip Lymphocytes/100 WBC (Bld) 29.5 % Normal 20.5-60.0 The [facility] Comment on above: Performed By: #### C BC ####[facility] Gkhxamipni68[address] [place] [id number]. Elisaeli Fisher MANUAL DIFF REQ NO Normal The [facility] Comment on above: Performed By: #### C BC ####[facility] Gdgfnobthr3172 [place] [id number]. Keturah Phillip MCH (RBC) [Entitic mass] 32.8 pg Normal 26.7-34.0 The [facility] Comment on above: Performed By: #### C BC ####[facility] Qsqcixpilm[address] [place], [place] [address]Dr. Elisaeli Fisher MCHC (RBC) [Mass/Vol] 33.5 g/dL Normal 29.9-35.2 The [facility] Comment on above: Performed By: #### C BC ####[facility] Qqxakmondl[address] [place], [place] [address]Dr. Keturah Phillip MCV (RBC) [Entitic vol] 97.9 fL Normal 81.0-99.0 The [facility] Comment on above: Performed By: #### C BC ####[facility] [address]tnq[address]gbke[address] [place], [place] [address]Dr. Keturah Fisher MONO # 1.0 103/ul Critically high 0.3-0.8 The [facility] Comment on above: Performed By: #### C BC ####[facility] M[address]lbjwmpow[address] [place], [place] [address]Dr. Elisaeli Fisher Monocytes/100 WBC (Bld) 9.3 % Normal 1.7-12.0 The [facility] Comment on above: Performed By: #### C BC ####[facility] Mabbuuejar[address] [place], [place] [address]Dr. Keturah Fisher NEUT # 6.1 103/ul Normal 1.4-6.5 The [facility] Comment on above: Performed By: #### C BC ####[facility] Hvfyzqupjm8759 [place] [id number]. Keturah Fisher Neutrophils/100 WBC (Bld) 59.2 % Normal 43.0-75.0 [facility] Comment on above: Performed By: #### C BC ####[facility] [address]ucys[address] [place] [address]Dr. Keturah Fisher Platelet mean volume (Bld) [Entitic vol] 9.8 fL Normal 9.5-13.5 [facility] Comment on above: Performed By: #### C BC ####[facility] Kbzazcukzz7[address] [place] [address]Dr. Keturah Fisher PLT 249 103/ul Normal 150-450 The [facility] Comment on above: Performed By: #### C BC ####[facility] S[address]exvthpt[address] [place], [place] [address]Dr. Keturah Fisher RBC 4.33 106/ul Normal 4.20-5.40 [facility] Comment on above: Performed By: #### C BC ####[facility] Yjokjyascu[address] [place], [place] [address]Dr. Keturah Fisher WBC 10.2 103/ul Normal 4.0-11.0 [facility] Comment on above: Performed By: #### C BC ####[facility] Cwirouvbum[address] [place], [place] [address]Dr. Keturah Fisher LIPASEon 07-19-2021 Lipase [Catalytic activity/Vol] 554.0 U/L Critically high 73.0-393.0 [facility] Comment on above: Performed By: #### A MY, LIPA, CMP ####[facility] Gumzxxuamg[address] [place], [place] [address]Dr. Keturah Fisher PROF 14(COMP METB)on 022 Albumin [Mass/Vol] 4.0 g/dL Normal 3.4-5.0 [facility] Comment on above: Performed By: #### A MY, LIPA, CMP ####[facility] Hhvjabjnji234[address] [place], [place] [address]Dr. Keturah Fisher Albumin/Globulin [Mass ratio] 1.1 {ratio} Normal [facility] Comment on above: Performed By: #### A AMANDEEP LIPA, CMP ####[facility] Ceognchsvf[address] [place] [address]Dr. Keturah Fisher ALP [Catalytic activity/Vol] 141 U/L Critically high 46-116 [facility] Comment on above: Performed By: #### A AMANDEEP LIPA, CMP ####[facility] Zniuwrfhzj22[address] [place] [address]Dr. Keturah Fisher ALT [Catalytic activity/Vol] 21 U/L Normal 14-59 [facility] Comment on above: Performed By: #### A AMANDEEP LIPA, CMP ####[facility] Ixrxzcuyjf[address] [place], [place] [address]Dr. Keturah Fisher Anion gap [Moles/Vol] 10.3 mmol/L Normal [facility] Comment on above: Performed By: #### A AMANDEEP LIPA, CMP ####[facility] Tijjxwoflg[address] [place], [place] [address]Dr. Keturah Fisher AST [Catalytic activity/Vol] 22 U/L Normal 15-37 [facility] Comment on above: Performed By: #### A AMANDEEP LIPA, CMP ####[facility] Nkznrljovs[address] [place], [place] [address]Dr. Keturah Fisher Bilirubin [Mass/Vol] 0.3 mg/dL Normal 0.2-1.0 [facility] Comment on above: Performed By: #### A MY LIPA, CMP ####[facility] Xaawxgnkor[address] [place], [place] [address]Dr. Keturah Fisher Calcium [Mass/Vol] 9.9 mg/dL Normal 8.5-10.1 [facility] Comment on above: Performed By: #### A MY LIPA, CMP ####[facility] Mwcomkkkqm35[address] [place], [place] [address]Dr. Keturah Fisher Chloride [Moles/Vol] 103 mmol/L Normal 98-107 [facility] Comment on above: Performed By: #### A MY LIPA, CMP ####[facility] Dftcivlidm4683 [place] [address]Dr. Keturah Fisher CO2 [Moles/Vol] 27.6 mmol/L Normal 21.0-32.0 The [facility] Comment on above: Performed By: #### A MY, LIPA, CMP ####[facility] Yvetvcptrd7737 [place] [address]Dr. Keturah Fisher Creatinine [Mass/Vol] 0.93 mg/dL Normal 0.55-1.02 The [facility] Comment on above: Performed By: #### A MY, LIPA, CMP ####[facility] Boskfbmpps[address] [place], [place] [address]Dr. Keturah Fisher EGFR-AF NIGERIEN >60 Normal >=60 The [facility] Comment on above: Performed By: #### A MY, LIPA, CMP ####[facility] Nzpboauzuv[address] [place], [place] [address]Dr. Keturah Fisher EGFR-NON AF NIGERIEN >60 Normal >=60 The [facility] Comment on above: Performed By: #### A MY, LIPA, CMP ####[facility] Ceqawieiuv[address] [place], [place] [address]Dr. Keturah Fisher Globulin (S) [Mass/Vol] 3.5 g/dL Normal The [facility] Comment on above: Performed By: #### A MY, LIPA, CMP ####[facility] Pwcukddcam[address] [place], [place] [address]Dr. Keturah Fisher Glucose [Mass/Vol] 99 mg/dL Normal 74-106 The [facility] Comment on above: Performed By: #### A MY, LIPA, CMP ####[facility] Oczriadogv7[address] [place], [place] [address]Dr. Keturah Fisher Potassium [Moles/Vol] 3.9 mmol/L Normal 3.5-5.1 The [facility] Comment on above: Performed By: #### A MY, LIPA, CMP ####[facility] Fkbyvnuefl[address] [place], [place] [address]Dr. Keturah Fisher Protein [Mass/Vol] 7.5 g/dL Normal 6.4-8.2 The [facility] Comment on above: Performed By: #### A AMANDEEP LIPA, CMP ####[facility] [address]pqbtnfkbm[address] [place] [address]Dr. Keturah Fisher Sodium [Moles/Vol] 137 mmol/L Normal 136-145 The [facility] Comment on above: Performed By: #### A AMANDEEP LIPA, CMP ####[facility] Okx[address]aphtbn[address] [place] [address]Dr. Keturah Fisher Urea nitrogen [Mass/Vol] 9.0 mg/dL Normal 7.0-18.0 [facility] Comment on above: Performed By: #### A AMANDEEP LIPA, CMP ####[facility] Vstncsqkgz37[address] [place] [address]Dr. Keturah Fisher Urea nitrogen/Creatinine [Mass ratio] 9.7 mg/mg Normal [facility] Comment on above: Performed By: #### A AMANDEEP LIPA, CMP ####[facility] Vktuuhqued[address] [place] [address]Dr. Keturah Fisher XR ABD FLAT UP_PA Jorje 07-19 XR ABD FLAT UP_PA CH EXAM: XR ABD FLAT U P_PA CH COMPARISON: 04/29/2020, 06/04/2021 CLINICAL INDICATION: Acute [...] LYNNE PERDOMO Date: 2021-07-19 16:57 Normal The [facility] XO GroupID Quick Testingon 2021 Result Positive Sand 9 Other ANES Marcial 11-13-2020 ANES POST HNO ID: [id number] Author: Ion Avila MD Service: Anesthesiology Author Type: Anesthesiologist Type: Anesthesia PostOp Filed: 11/13/2020 12:39 PM Note Text: POST ANESTHESIA EVALUATION NOTE SERVICE DATE: 11/13/2020 SERVICE TIME: 12:39p : 1970 Vitals: 11/13/20 1035 11/13/20 1212 Temp: 36.3 ?C (97.3 ?F) 36 ?C (96.8 ?F) 11/13/20103411/13/20 1212 11/13/20 1220 BP: 117/65 115/70 120/73 11/13/205 11/13/20 1212 11/13/20 1220 Pulse: 91 87 82 11/13/20103411/13/20 1212 11/13/20 1220 Resp: 16 18 18 [...] 13, 2020 TIME: 12:38 PM PAGER/CONTACT #: [phone] [facility] NURSING PROGon 11-13-2020 NURSING PROG HNO ID: [id number] Author: Viky Nguyen RN Service: Nursing Author [...] None Electronically Signed By: Yaquelin Nguyen RN [facility] NURSING PROG HNO ID: [id number] Author: Landy Smith RN Service: Nursing Author [...] By: Landy Smith RN In Department: GASTROENTEROLOGY [facility] 11-07-2020 CNPN Telephone (GASTPR) ----- CHIOMA RAINEY ([id number]) 1970 F Date Time Provider Department 11/07/20 NASREEN GORMAN [facility] During your visit today, we recorded the following information about you: Nasreen Gorman RN 11/07/2020 4:49 PM Signed GI Pre-Procedure Spoke with patient: Yes Confirmed date scheduled and patient report time: Yes Procedure Planned:Endoscopic Ultrasound (EUS) with or without Fine Needle Aspiration (FNA) Esophagogastroduodenoscop y(EGD) with or without biopies based on clinical findings, removal of polyps or lesions Is the patient on blood thinners?no Procedure Instructions given to patient: Yes, and they verbalized their understanding of instructions given Patient instructed to take prescribed preparation prior to procedure:Yes, and they verbalized their understanding of instructions given Patient instructed to have family/friend present for procedure? transport home:Patient/patient healthcare representative was told that if they do [...] area. 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 Type of instruction [...] HCl (PHENERGAN ORAL) Take by mouth. - oxyCODONE-acetaminophen (PERCOCET) 5-325 mg tablet Take 1 tablet [...] Status:Closed by NASREEN GORMAN on 11/07/20 Normal [facility] CT ABDOMEN PELVIS W IV CONTR [place] [...] is no free fluid or pelvic mass. Peritoneum/Retroperitoneu m: There is no pathologically enlarged lymphadenopathy present. [...] Jhoan Beatty MD 03/28/[address] [facility] Amylaseon 03-26-2020 Amylase [Catalytic activity/Vol] 185 U/L High 28-100 [facility] Comment on above: Performed By: #### R EJEC, NAT, LIP, CMPX #### [facility] [address] [place] [address] Patrol Sergeant: Ion Jasso MD Amylase [Catalytic activity/Vol] 185 U/L High 28 - 100 U/L [place], [place] CBC Auto Differentialon 03-09 Basophils (Bld) [#/Vol] 0.06 10*3/uL [place] Basophils/100 WBC (Bld) 1 % 0 - 2 % [place] Differential Type NOT REPORTED [place] Eosinophils (Bld) [#/Vol] 0.12 10*3/uL [place] Eosinophils/100 WBC (Bld) 1 % 1 - 4 % [place] Erythrocyte distribution width (RBC) [Ratio] 12.4 % 11.8 - 14.4 % [place] Hematocrit (Bld) [Volume fraction] 40.6 % 36.3 - 47.1 % [place] Hemoglobin (Bld) [Mass/Vol] 13.7 g/dL 11.9 - 15.1 g/dL [place] Immature granulocytes (Bld) [#/Vol] 0 % 0 [place] Immature granulocytes (Bld) [#/Vol] 10*3/uL [place] Lymphocytes (Bld) [#/Vol] 2.62 10*3/uL [place] Lymphocytes/100 WBC (Bld) 27 % 24 - 43 % [place] MCH (RBC) [Entitic mass] 33.4 pg 25.2 - 33.5 pg [place] MCHC (RBC) [Mass/Vol] 33.7 g/dL 28.4 - 34.8 g/dL [place] MCV (RBC) [Entitic vol] 99.0 fL 82.6 - 102.9 fL [place] Monocytes (Bld) [#/Vol] 0.78 10*3/uL [place] Monocytes/100 WBC (Bld) 8 % 3 - 12 % [place] Platelet mean volume (Bld) [Entitic vol] 9.4 fL 8.1 - 13.5 fL [place] Platelets (Bld) [#/Vol] 235 10*3/uL [place] Platelets (Bld) [#/Vol] NOT REPORTED [place] RBC (Bld) [#/Vol] 4.10 10*6/uL 3.95 - 5.11 m/uL [place] RBC morphology finding Nom (Bld) NOT REPORTED [place] Segmented neutrophils/100 WBC (Bld) 63 % 36 - 65 % [place] Segs Absolute 5.96 [place] WBC (Bld) [#/Vol] 9.6 10*3/uL [place] WBC (Bld) [#/Vol] 0.0 10*3/uL 0.0 per 100 WBC [place] WBC Morphology NOT REPORTED [facility] [place] [place] CBC with Diffon 03-26-2020 Abs. Basophil 0.06 k/uL Normal 0.00-0.20 [facility] Comment on above: Performed By: #### C DP, LIP #### [facility] [address] [place], [place] [address] Patrol Sergeant: Zafar Castillo MD Abs.Imm.Granulocyte <0.03 Normal 0.00-0.30 [facility] Comment on above: Performed By: #### C DP, LIP #### [facility] [address] [place] [address] Patrol Sergeant: Zafar Castillo MD Abs.Neutrophil (Seg) 5.96 k/uL Normal 1.50-8.10 [facility] Comment on above: Performed By: #### C DP, LIP #### [address] [place], [place] [address] Patrol Sergeant: Zafar Castillo MD Basophils/100 WBC (Bld) 1 % Normal 0-2 [facility] Comment on above: Performed By: #### C DP, LIP #### [address] [place], [place] [address] Patrol Sergeant: Zafar Castillo MD Eosinophils (Bld) [#/Vol] 0.12 10*3/uL Normal 0.00-0.44 [facility] Comment on above: Performed By: #### C DP, LIP #### [address] [place], [place] [address] Patrol Sergeant: Zafar Castillo MD Eosinophils/100 WBC (Bld) 1 % Normal 1-4 [facility] Comment on above: Performed By: #### C DP, LIP #### [address] [place] [address] Patrol Sergeant: Zafar Castillo MD Erythrocyte distribution width (RBC) [Ratio] 12.4 % Normal 11.8-14.4 [facility] Comment on above: Performed By: #### C DP, LIP #### [facility] [address] [place], [facility] Patrol Sergeant: Zafar Castillo MD Hematocrit (Bld) [Volume fraction] 40.6 % Normal 36.3-47.1 [facility] Comment on above: Performed By: #### C DP, LIP #### [facility] [address] [place] [address] Patrol Sergeant: Zafar Castillo MD Hemoglobin (Bld) [Mass/Vol] 13.7 g/dL Normal 11.9-15.1 [facility] Comment on above: Performed By: #### C DP, LIP #### [facility] [address] [place] [address] Patrol Sergeant: Zafar Castillo MD Immature granulocytes (Bld) [#/Vol] 0 % Normal 0 [facility] Comment on above: Performed By: #### C DP, LIP #### [facility] [address] [place] [address] Patrol Sergeant: Zafar Castillo MD Lymphocytes (Bld) [#/Vol] 2.62 10*3/uL Normal 1.10-3.70 [facility] Comment on above: Performed By: #### C DP, LIP #### [facility] [address] [place] [address] Patrol Sergeant: Zafar Castillo MD Lymphocytes/100 WBC (Bld) 27 % Normal 24-43 [facility] Comment on above: Performed By: #### C DP, LIP #### [facility] [address] [place] [address] Patrol Sergeant: Zafar Castillo MD MCH (RBC) [Entitic mass] 33.4 pg Normal 25.2-33.5 [facility] Comment on above: Performed By: #### C DP, LIP #### [facility] [address] [place] [address] Patrol Sergeant: Zafar Castillo MD MCHC (RBC) [Mass/Vol] 33.7 g/dL Normal 28.4-34.8 [facility] Comment on above: Performed By: #### C DP, LIP #### [facility] [address] [place], [place] [address] Patrol Sergeant: Zafar Castillo MD MCV (RBC) [Entitic vol] 99.0 fL Normal 82.6-102.9 [facility] Comment on above: Performed By: #### C DP, LIP #### [facility] [address] [place], [facility] Patrol Sergeant: Zafar Castillo MD Monocytes (Bld) [#/Vol] 0.78 10*3/uL Normal 0.10-1.20 [facility] Comment on above: Performed By: #### C DP, LIP #### [facility] [address] [place], [facility] Patrol Sergeant: Zafar Castillo MD Monocytes/100 WBC (Bld) 8 % Normal 3-12 [facility] Comment on above: Performed By: #### C DP, LIP #### [facility] [address] [place], [place] [address] Patrol Sergeant: Zafar Castillo MD Neutrophil (Seg) 63 % Normal 36-65 [facility] Comment on above: Performed By: #### C DP, LIP #### [facility] [address] [place], [facility] Patrol Sergeant: Zafar Castillo MD NRBC Automated 0.0 per [address] [facility] Comment on above: Performed By: #### C DP, LIP #### [facility] [address] [place], [place] 3028683 Patrol Sergeant: Zafar Castillo MD Platelet mean volume (Bld) [Entitic vol] 9.4 fL Normal 8.1-13.5 [facility] Comment on above: Performed By: #### C DP, LIP #### [facility] [address] [place] [address] Patrol Sergeant: Zafar Castillo MD Platelets (Bld) [#/Vol] 235 10*3/uL Normal 138-453 [facility] Comment on above: Performed By: #### C DP, LIP #### [facility] [address] [place], [place] [address]666183 Patrol Sergeant: Zafar Castillo MD RBC (Bld) [#/Vol] 4.10 10*6/uL Normal 3.95-5.11 [facility] Comment on above: Performed By: #### C DP, LIP #### [facility] [address] [place], [facility] Patrol Sergeant: Zafar Castillo MD WBC (Bld) [#/Vol] 9.6 10*3/uL Normal 3.5-11.3 [facility] Comment on above: Performed By: #### C DP, LIP #### [facility] [address] [place] [address] Patrol Sergeant: Zafar Castillo MD Auto Diff Performed NOT REPORTED Normal [facility] Comment on above: Performed By: #### C DP, LIP #### [facility] [address] [place], [facility] Patrol Sergeant: Zafar Castillo MD Platelets (Bld) [#/Vol] NOT REPORTED Normal [facility] Comment on above: Performed By: #### C DP, LIP #### [facility] [address] [place] [id number] Patrol Sergeant: Zafar Castillo MD RBC morphology finding Nom (Bld) NOT REPORTED Normal [facility] Comment on above: Performed By: #### C DP, LIP #### [facility] [address] [place], [facility] Patrol Sergeant: Zafar Castillo MD WBC Morphology NOT REPORTED Normal [facility] Comment on above: Performed By: #### C DP, REBECA #### [facility] [address] [place] [address] Patrol Sergeant: Zafar Castillo MD Comp Metabolic Pr/rfx MGon 0 03-26-2020 (cont.) Normal [facility] Comment on above: Result Comment: Aver age GFR for 50-59 years old: 93 mL/min/1.73sq m Chronic Kidney Disease: <60 mL/min/1.73sq m Kidney failure: <15 mL/min/1.73sq m eGFR calculated using average adult body mass. Additional eGFR calculator available at: http://www.[employer]/multiple_crcl_2011.htm Performed By: #### R ANGELINE, NAT, LIP, CMPX #### [address] [place] [address] Patrol Sergeant: Ion Jasso MD Albumin [Mass/Vol] 4.3 g/dL Normal 3.5-5.2 [facility] Comment on above: Performed By: #### R ANGELINE, NAT, LIP, CMPX #### [address] [place] [address] Patrol Sergeant: Ion Jasso MD Albumin/Globulin [Mass ratio] 1.7 {ratio} Normal 1.0-2.5 [facility] Comment on above: Performed By: #### R ANGELINE, NAT, LIP, CMPX #### [facility] [address] [place] [address] Patrol Sergeant: Ion Jasso MD Alkaline Phos 117 U/L High 35-104 [facility] Comment on above: Performed By: #### R NAYELYEC, NAT, LIP, CMPX #### [facility] [address] [place] [address] Patrol Sergeant: Ion Jasso MD ALT [Catalytic activity/Vol] 11 U/L Normal 5-33 [facility] Comment on above: Performed By: #### R EJEC, NAT, LIP, CMPX #### [facility] [address] [place], [place] 77[address]83 Patrol Sergeant: Ion Jasso MD Anion gap [Moles/Vol] 9 mmol/L Normal 9-17 [facility] Comment on above: Performed By: #### R EJEC, NAT, LIP, CMPX #### [facility] [address] [place] [address] Dr[place], [place] 5095883 Patrol Sergeant: Ion Jasso MD AST [Catalytic activity/Vol] 18 U/L Normal <32 [facility] Comment on above: Performed By: #### R EJEC, NAT, LIP, CMPX #### [address] [place], [place] 0[address]83 Patrol Sergeant: Ion Jasso MD Bilirubin Ql (U) 0.15 mg/dL Low 0.3-1.2 [facility] Comment on above: Performed By: #### R EJEC, NAT, LIP, CMPX #### [address] [place], [place] 6[address]83 Patrol Sergeant: Ion Jasso MD BUN/CRE Ratio 12 Normal 9-20 [facility] Comment on above: Performed By: #### R EJEC, NAT, LIP, CMPX #### [facility] [address] [place] [address] Dr[place], [place] 7557583 Patrol Sergeant: Ion Jasso MD Calcium [Mass/Vol] 9.7 mg/dL Normal 8.6-10.4 [facility] Comment on above: Performed By: #### R EJEC, NAT, LIP, CMPX #### [facility] [address] [place] [address] Dr[place], [place] 7426083 Patrol Sergeant: Ion Jasso MD Chloride [Moles/Vol] 102 mmol/L Normal 98-107 [facility] Comment on above: Performed By: #### R EJEC, NAT, LIP, CMPX #### [facility] [address] [place] [address] [place] [address] Patrol Sergeant: Ion Jasso MD CO2 [Moles/Vol] 25 mmol/L Normal 20-31 [facility] Comment on above: Performed By: #### R EJEC, NAT, LIP, CMPX #### [facility] [address] [place], [place] 1264783 Patrol Sergeant: Ion Jasso MD Creatinine [Mass/Vol] 0.74 mg/dL Normal 0.50-0.90 [facility] Comment on above: Performed By: #### R EJEC, NAT, LIP, CMPX #### [address] [place], [place] 326[address]83 Patrol Sergeant: Ion Jasso MD GFR, Amer >60 Normal >60 [facility] Comment on above: Performed By: #### R EJEC, NAT, LIP, CMPX #### [address] [place], [place] 522[address]83 Patrol Sergeant: Ion Jasso MD GFR,non Amer >60 Normal >60 [facility] Comment on above: Performed By: #### R EJEC, NAT, LIP, CMPX #### [facility] [address] [place] [address] Dr[place], [place] 5894483 Patrol Sergeant: Ion Jasso MD Glucose [Mass/Vol] 94 mg/dL Normal 70-99 [facility] Comment on above: Performed By: #### R EJEC, NAT, LIP, CMPX #### [address] [place] [address] Patrol Sergeant: Ion Jasso MD Potassium [Moles/Vol] 4.2 mmol/L Normal 3.7-5.3 [facility] Comment on above: Performed By: #### R EJEC, NAT, LIP, CMPX #### [address] [place] [address] Patrol Sergeant: Ion Jasso MD Protein [Mass/Vol] 6.8 g/dL Normal 6.4-8.3 [facility] Comment on above: Performed By: #### R EJEC, NAT, LIP, CMPX #### [address] [place] [address] Patrol Sergeant: Ion Jasso MD Sodium [Moles/Vol] 136 mmol/L Normal 135-144 [facility] Comment on above: Performed By: #### R NAYELYEC, NAT, LIP, CMPX #### [address] [place] [address] Patrol Sergeant: Ion Jasso MD Staging: Normal [facility] Comment on above: Result Comment: Stag e 1: Some kidney damage normal GFR Stage 2: Mild kidney damage GFR 60-89 Stage 3: Moderate kidney damage GFR 30-59 Stage 4: Severe kidney damage GFR 15-29 Stage 5: Severe kidney damage GFR <15 ESRD - chronic treatment by dialysis or transplant Performed By: #### R EJEC, NAT, LIP, CMPX #### [address] [place] [address] Patrol Sergeant: Ion Jasso MD Urea nitrogen [Mass/Vol] 9 mg/dL Normal 6-20 [facility] Comment on above: Performed By: #### R EJEC, NAT, LIP, CMPX #### [address] [place] [address] Patrol Sergeant: Ion Jasso MD Comprehensive Metabolic Pane l w/ Reflex to MGon 03-26-2020 Albumin [Mass/Vol] 4.3 g/dL 3.5 - 5.2 g/dL [place], [place] Albumin/Globulin [Mass ratio] 1.7 {ratio} [place] ALP [Catalytic activity/Vol] 117 U/L High 35 - 104 U/L [place] ALT [Catalytic activity/Vol] 11 U/L 5 - 33 U/L [place] Anion gap [Moles/Vol] 9 mmol/L 9 - 17 mmol/L [place] AST [Catalytic activity/Vol] 18 U/L <32 [place] Bilirubin Ql (U) 0.15 mg/dL Low 0.3 - 1.2 mg/dL [place] Bun/Cre Ratio 12 [place] Calcium [Mass/Vol] 9.7 mg/dL 8.6 - 10. 4 mg/dL [place] Chloride [Moles/Vol] 102 mmol/L 98 - 10 7 mmol/L [place] CO2 [Moles/Vol] 25 mmol/L 20 - 31 mmol/L [place] Creatinine [Mass/Vol] 0.74 mg/dL 0.5 - 0.9 mg/dL [place] GFR >60 >60 mL/min [place] GFR Non- >60 >60 mL/min [place] Glucose [Mass/Vol] 94 mg/dL 70 - 99 mg/dL [place] Potassium [Moles/Vol] 4.2 mmol/L 3.7 - 5.3 mmol/L [place] Protein [Mass/Vol] 6.8 g/dL 6.4 - 8.3 g/dL [place] Sodium [Moles/Vol] 136 mmol/L 135 - 144 mmol/L [place] Urea nitrogen [Mass/Vol] 9 mg/dL 6 - 20 mg/dL [place] Lactic Acidon 03-26-2020 Lactate [Moles/Vol] 1.3 mmol/L Normal 0.5-2.2 [facility] Comment on above: Performed By: #### C DP, LIP #### [facility] [address] [place] [address] Patrol Sergeant: Zafar Castillo MD Lactate [Moles/Vol] 1.3 mmol/L 0.5 - 2. 2 mmol/L [place] Lipaseon 03-26-2020 Lipase [Catalytic activity/Vol] 225 U/L Critically high 13-60 [facility] Comment on above: Performed By: #### R ANGELINE, NAT, LIP, CMPX #### [facility] [address] [place] [address] Patrol Sergeant: Ion Jasso MD Interpretation and review of laboratory results Abnormal [place] Lipase [Catalytic activity/Vol] 225 U/L Critically high 13 - 60 U/L [place] Metabolic Panelon 03-26-2020 GFR/1.73 sq M predicted among non-blacks MDRD (S/P/Bld) [Vol rate/Area] [place] Comment on above: Average GFR for 50-5 9 years old: 93 mL/min/1.73sq m Chronic Kidney Disease: <60 mL/min/1.73sq m Kidney failure: <15 mL/min/1.73sq m eGFR calculated using average adult body mass. Additional eGFR calculator available at: http://www.[employer]/multiple_crcl_2012.htm Stage 1: Some kidney damage normal GFR Stage 2: Mild kidney damage GFR 60-89 Stage 3: Moderate kidney damage GFR 30-59 Stage 4: Severe kidney damage GFR 15-29 Stage 5: Severe kidney damage GFR <15 ESRD - chronic treatment by dialysis or transplant Otheron 03-26-2020 Interpretation and review of laboratory results Abnormal [place] SPECIMEN REJECTIONon 021 Ordered Test CDP [place], [place] Reason for Rejection Unable to perform testing: Specimen clotted. [place] Specimen source Nom (Unsp spec) .BLOOD [place] - NOT REPORTED [place] Specimen Rejectionon 021 Reason for rejection Unable to perform testing: Specimen clotted. Normal [facility] Comment on above: Performed By: #### R ANGELINE, NAT, LIP, CMPX #### [facility] [address] [place] [address] Patrol Sergeant: Ion Jasso MD Source of sample .BLOOD Normal [facility] Comment on above: Performed By: #### R EJEC, NAT, LIP, CMPX #### [facility] [address] [place], [place] [id number] Patrol Sergeant: Ion Jasso MD Test ordered CDP [facility] Comment on above: Performed By: #### R EJEC, NAT, LIP, CMPX #### [facility] [address] [place] [address] Patrol Sergeant: Ion Jasso MD ----- NOT REPORTED [facility] Comment on above: Performed By: #### R NAYELYEC, NAT, LIP, CMPX #### [facility] [address] [place] [address] Patrol Sergeant: Ion Jasso MD Urinalysis, Routineon 2020 Acetoacetic Acid,Ur Negative Normal NEG [facility] Comment on above: Performed By: #### C DP, LIP #### [facility] [address] [place], [place] [id number] Patrol Sergeant: Zafar Castillo MD Bilirubin, SemiQt,Ur Negative [facility] Comment on above: Performed By: #### C DP, LIP #### [facility] [address] [place] [address] Patrol Sergeant: Zafar Castillo MD Color (U) YELLOW Normal YEL [facility] Comment on above: Performed By: #### C DP, LIP #### [facility] [address] [place] [address] Patrol Sergeant: Zafar Castillo MD Glucose Ql (U) Negative Normal NEG [facility] Comment on above: Performed By: #### C DP, LIP #### [facility] [address] [place], [place] [id number] Patrol Sergeant: Zafar Castillo MD Hemoglobin, Ur Negative Normal NEG [facility] Comment on above: Performed By: #### C DP, LIP #### [facility] [address] [place] [address] Patrol Sergeant: Zafar Castillo MD Leukocyte esterase Test strip Ql (U) Negative Normal NEG [facility] Comment on above: Performed By: #### C DP, LIP #### [facility] [address] [place], [place] [phone] Patrol Sergeant: Zafar Castillo MD Nitrite,Ur Negative Normal NEG [facility] Comment on above: Performed By: #### C DP, LIP #### [facility] [address] [place] [address] Patrol Sergeant: Zafar Castillo MD pH (U) 5.5 [pH] Normal 5.0-9.0 [facility] Comment on above: Performed By: #### C DP, LIP #### [facility] [address] [place], [place] [phone] Patrol Sergeant: Zafar Castillo MD Protein Ql (U) Negative Normal NEG [facility] Comment on above: Performed By: #### C DP, LIP #### [facility] [address] [place], [place] [id number] Patrol Sergeant: Zafar Castillo MD Specific gravity (U) [Rel density] 1.010 Normal 1.010-1.[address] [facility] Comment on above: Performed By: #### C DP, LIP #### [facility] [address] [place], [place] [phone] Patrol Sergeant: Zafar Castillo MD Turbidity CLEAR Normal CLEAR [facility] Comment on above: Performed By: #### C DP, LIP #### [facility] [address] [place] [address] Patrol Sergeant: Zafar Castillo MD Urobilinogen,Ur Normal Normal NORM [facility] Comment on above: Performed By: #### C DP, LIP #### [facility] [address] [place] [address] Patrol Sergeant: Zafar Castillo MD Comment NOT REPORTED Normal [facility] Comment on above: Performed By: #### C DP, LIP #### [facility] [address] [place] [address] Patrol Sergeant: Zafar Castillo MD Urinalysis, reflex to micros copicon 03-26-2020 Bilirubin Urine Negative NEGATIVE [place] Color, UA YELLOW YELLOW [place] Glucose, Ur Negative NEGATIVE [place] Ketones Ql (U) Negative NEGATIVE [place] Leukocyte esterase Test strip Ql (U) Negative NEGATIVE [place] Nitrite, Urine Negative NEGATIVE [place] pH, UA 5.5 [place] Protein (U) [Mass/Vol] Negative NEGATIVE [place] Specific [place], UA 1.010 [place] Turbidity UA CLEAR CLEAR [place] Urinalysis Comments NOT REPORTED [place] Urine Hgb Negative NEGATIVE [place] Urobilinogen, Urine Normal Normal [place] CBC auto differentialon 08-07 Basophils (Bld) [#/Vol] 0.04 10*3/uL [place] Basophils/100 WBC (Bld) 1 % 0 - 2 % [place] Differential Type NOT REPORTED [place] Eosinophils (Bld) [#/Vol] 0.10 10*3/uL [place] Eosinophils/100 WBC (Bld) 1 % 1 - 4 % [place] Erythrocyte distribution width (RBC) [Ratio] 13.0 % 11.8 - 14.4 % [place] Hematocrit (Bld) [Volume fraction] 35.2 % Low 36.3 - 47.1 % [place] Hemoglobin (Bld) [Mass/Vol] 11.7 g/dL Low 11.9 - 15.1 g/dL [place] Immature granulocytes (Bld) [#/Vol] 10*3/uL [place] Immature granulocytes (Bld) [#/Vol] 0 % 0 [place] Interpretation and review of laboratory results Abnormal [place] Lymphocytes (Bld) [#/Vol] 1.87 10*3/uL [place] Lymphocytes/100 WBC (Bld) 22 % Low 24 - 43 % [place] MCH (RBC) [Entitic mass] 32.5 pg 25.2 - 33.5 pg [place] MCHC (RBC) [Mass/Vol] 33.2 g/dL 28.4 - 34.8 g/dL [place] MCV (RBC) [Entitic vol] 97.8 fL 82.6 - 102.9 fL [place] Monocytes (Bld) [#/Vol] 0.86 10*3/uL [place] Monocytes/100 WBC (Bld) 10 % 3 - 12 % [place] Platelet mean volume (Bld) [Entitic vol] 9.8 fL 8.1 - 13.5 fL [place] Platelets (Bld) [#/Vol] 178 10*3/uL [place] RBC (Bld) [#/Vol] 3.60 10*6/uL Low 3.95 - 5.11 m/uL [place] Segmented neutrophils/100 WBC (Bld) 66 % High 36 - 65 % [place] Segs Absolute 5.53 [place] WBC (Bld) [#/Vol] 0.0 10*3/uL 0.0 per 100 WBC [place] WBC (Bld) [#/Vol] 8.4 10*3/uL [place] CBC with Diffon 08-25-2019 Abs. Basophil 0.04 k/uL Normal 0.00-0.20 [facility] Comment on above: Performed By: #### C DP, LIP #### [facility] [address] [place], [place] [address] Patrol Sergeant: Zafar Castillo MD Abs.Imm.Granulocyte <0.03 Normal 0.00-0.30 [facility] Comment on above: Performed By: #### C DP, LIP #### [facility] [address] [place] [phone] Patrol Sergeant: Zafar Castillo MD Abs.Neutrophil (Seg) 5.53 k/uL Normal 1.50-8.10 [facility] Comment on above: Performed By: #### C DP, LIP #### [facility] [address] [place] [address] Patrol Sergeant: Zafar Castillo MD Basophils/100 WBC (Bld) 1 % Normal 0-2 [facility] Comment on above: Performed By: #### C DP, LIP #### [facility] [address] [place] [address] Patrol Sergeant: Zafar Castillo MD Eosinophils (Bld) [#/Vol] 0.10 10*3/uL Normal 0.00-0.44 [facility] Comment on above: Performed By: #### C DP, LIP #### [facility] [address] [place] [phone] Patrol Sergeant: Zafar Castillo MD Eosinophils/100 WBC (Bld) 1 % Normal 1-4 [facility] Comment on above: Performed By: #### C DP, LIP #### [facility] [address] [place] [address] Patrol Sergeant: Zafar Castillo MD Erythrocyte distribution width (RBC) [Ratio] 13.0 % Normal 11.8-14.4 [facility] Comment on above: Performed By: #### C DP, LIP #### [facility] [address] [place], [id number] Patrol Sergeant: Zafar Castillo MD Hematocrit (Bld) [Volume fraction] 35.2 % Low 36.3-47.1 [facility] Comment on above: Performed By: #### C DP, LIP #### [facility] [address] [place], [place] [address] Patrol Sergeant: Zafar Castillo MD Hemoglobin (Bld) [Mass/Vol] 11.7 g/dL Low 11.9-15.1 [facility] Comment on above: Performed By: #### C DP, LIP #### [facility] [address] [place], [id number] Patrol Sergeant: Zafar Castillo MD Immature granulocytes (Bld) [#/Vol] 0 % Normal 0 [facility] Comment on above: Performed By: #### C DP, LIP #### [facility] [address] [place], [id number] Patrol Sergeant: Zafar Castillo MD Lymphocytes (Bld) [#/Vol] 1.87 10*3/uL Normal 1.10-3.70 [facility] Comment on above: Performed By: #### C DP, LIP #### [facility] [address] [place], [id number] Patrol Sergeant: Zafar Castillo MD Lymphocytes/100 WBC (Bld) 22 % Low 24-43 [facility] Comment on above: Performed By: #### C DP, LIP #### [facility] [address] [place], [place] [address] Patrol Sergeant: Zafar Casitllo MD MCH (RBC) [Entitic mass] 32.5 pg Normal 25.2-33.5 [facility] Comment on above: Performed By: #### C DP, LIP #### [facility] [address] [place], [id number] Patrol Sergeant: Zafar Castillo MD MCHC (RBC) [Mass/Vol] 33.2 g/dL Normal 28.4-34.8 [facility] Comment on above: Performed By: #### C DP, LIP #### [facility] [address] [place] [phone] Patrol Sergeant: Zafar Castillo MD MCV (RBC) [Entitic vol] 97.8 fL Normal 82.6-102.9 [facility] Comment on above: Performed By: #### C DP, LIP #### [address] [place] [phone] Patrol Sergeant: Zafar Castillo MD Monocytes (Bld) [#/Vol] 0.86 10*3/uL Normal 0.10-1.20 [facility] Comment on above: Performed By: #### C DP, LIP #### [address] [place], [place] [phone] Patrol Sergeant: Zafar Castillo MD Monocytes/100 WBC (Bld) 10 % Normal 3-12 [facility] Comment on above: Performed By: #### C DP, LIP #### [address] [place], [id number] Patrol Sergeant: Zafar Castillo MD Neutrophil (Seg) 66 % High 36-65 [facility] Comment on above: Performed By: #### C DP, LIP #### [address] [place], [place] [phone] Patrol Sergeant: Zafar Castillo MD NRBC Automated 0.0 per [address] [facility] Comment on above: Performed By: #### C DP, LIP #### [address] [place], [place] 1067983 Patrol Sergeant: Zafar Castillo MD Platelet mean volume (Bld) [Entitic vol] 9.8 fL Normal 8.1-13.5 [facility] Comment on above: Performed By: #### C DP, LIP #### [address] [place] [phone] Patrol Sergeant: Zafar Castillo MD Platelets (Bld) [#/Vol] 178 10*3/uL Normal 138-453 [facility] Comment on above: Performed By: #### C DP, LIP #### [facility] [address] [place] [address] Patrol Sergeant: Zafar Castillo MD RBC (Bld) [#/Vol] 3.60 10*6/uL Low 3.95-5.11 [facility] Comment on above: Performed By: #### C DP, LIP #### [facility] [address] [place] [address] Patrol Sergeant: Zafar Castillo MD WBC (Bld) [#/Vol] 8.4 10*3/uL Normal 3.5-11.3 [facility] Comment on above: Performed By: #### C DP, LIP #### [facility] [address] [place], [place] 916[address]83 Patrol Sergeant: Zafar Castillo MD Auto Diff Performed NOT REPORTED Normal [facility] Comment on above: Performed By: #### C DP, LIP #### [facility] [address] [place], [place] [phone] Patrol Sergeant: Zafar Castillo MD Platelets (Bld) [#/Vol] NOT REPORTED Normal [facility] [place], [place] Comment on above: Performed By: #### C DP, LIP #### [facility] [address] [place] [address] Patrol Sergeant: Zafar Castillo MD RBC morphology finding Nom (Bld) NOT REPORTED Normal [facility] [place], [place] Comment on above: Performed By: #### C DP, LIP #### [facility] [address] [place], [place] [phone] Patrol Sergeant: Zafar Castillo MD WBC Morphology NOT REPORTED Normal [facility] [place] Comment on above: Performed By: #### C DP, LIP #### [facility] [address] [place], [place] [phone] Patrol Sergeant: Zafar Castillo MD Lipaseon 08-25-2019 Lipase [Catalytic activity/Vol] 42 U/L Normal 13-60 [facility] Comment on above: Performed By: #### C DP, LIP #### [facility] [address] [place] [address] Patrol Sergeant: Zfaar Castillo MD Lipase [Catalytic activity/Vol] 42 U/L 13 - 60 U/L [place] CBC auto differentialon 08-07 Basophils (Bld) [#/Vol] 0.04 10*3/uL [place] Basophils/100 WBC (Bld) 1 % 0 - 2 % [place] Differential Type NOT REPORTED [place] Eosinophils (Bld) [#/Vol] 0.08 10*3/uL [place] Eosinophils/100 WBC (Bld) 1 % 1 - 4 % [place] Erythrocyte distribution width (RBC) [Ratio] 12.9 % 11.8 - 14.4 % [place] Hematocrit (Bld) [Volume fraction] 35.9 % Low 36.3 - 47.1 % [place] Hemoglobin (Bld) [Mass/Vol] 11.9 g/dL 11.9 - 15.1 g/dL [place] Immature granulocytes (Bld) [#/Vol] 0 % 0 [place] Immature granulocytes (Bld) [#/Vol] 0.03 10*3/uL [place] Interpretation and review of laboratory results Abnormal [place] Lymphocytes (Bld) [#/Vol] 1.79 10*3/uL [place] Lymphocytes/100 WBC (Bld) 22 % Low 24 - 43 % [place] MCH (RBC) [Entitic mass] 32.3 pg 25.2 - 33.5 pg [place] MCHC (RBC) [Mass/Vol] 33.1 g/dL 28.4 - 34.8 g/dL [place] MCV (RBC) [Entitic vol] 97.6 fL 82.6 - 102.9 fL [place] Monocytes (Bld) [#/Vol] 0.75 10*3/uL [place] Monocytes/100 WBC (Bld) 9 % 3 - 12 % [place] Platelet mean volume (Bld) [Entitic vol] 10.1 fL 8.1 - 13.5 fL [place] Platelets (Bld) [#/Vol] 176 10*3/uL [place] Platelets (Bld) [#/Vol] NOT REPORTED [place] RBC (Bld) [#/Vol] 3.68 10*6/uL Low 3.95 - 5.11 m/uL [place] RBC morphology finding Nom (Bld) NOT REPORTED [place] Segmented neutrophils/100 WBC (Bld) 67 % High 36 - 65 % [place] Segs Absolute 5.61 [place] WBC (Bld) [#/Vol] 0.0 10*3/uL 0.0 per 100 WBC [place] WBC (Bld) [#/Vol] 8.3 10*3/uL [place] WBC Morphology NOT REPORTED [place], [place] CBC with Diffon 08-24-2019 Abs. Basophil 0.04 k/uL Normal 0.00-0.20 [facility] Comment on above: Performed By: #### C DP, LIP #### [address] [place] [address] Patrol Sergeant: Zafar Castillo MD Abs.Imm.Granulocyte 0.03 k/uL Normal 0.00-0.30 [facility] Comment on above: Performed By: #### C DP, LIP #### [address] [place] [address] Patrol Sergeant: Zafar Castillo MD Abs.Neutrophil (Seg) 5.61 k/uL Normal 1.50-8.10 [facility] Comment on above: Performed By: #### C DP, LIP #### [address] [place], [id number] Patrol Sergeant: Zafar Castillo MD Basophils/100 WBC (Bld) 1 % Normal 0-2 [facility] Comment on above: Performed By: #### C DP, LIP #### [facility] [address] [place], [id number] Patrol Sergeant: Zafar Castillo MD Eosinophils (Bld) [#/Vol] 0.08 10*3/uL Normal 0.00-0.44 [facility] Comment on above: Performed By: #### C DP, LIP #### [address] [place], [place] [address] Patrol Sergeant: Zafar Castillo MD Eosinophils/100 WBC (Bld) 1 % Normal 1-4 [facility] Comment on above: Performed By: #### C DP, LIP #### [address] [place], [id number] Patrol Sergeant: Zafar Castillo MD Erythrocyte distribution width (RBC) [Ratio] 12.9 % Normal 11.8-14.4 [facility] Comment on above: Performed By: #### C DP, LIP #### [address] [place], [id number] Patrol Sergeant: Zafar Castillo MD Hematocrit (Bld) [Volume fraction] 35.9 % Low 36.3-47.1 [facility] Comment on above: Performed By: #### C DP, LIP #### [address] [place], [id number] Patrol Sergeant: Zafar Castillo MD Hemoglobin (Bld) [Mass/Vol] 11.9 g/dL Normal 11.9-15.1 [facility] Comment on above: Performed By: #### C DP, LIP #### [address] [place], [id number] Patrol Sergeant: Zafar Castillo MD Immature granulocytes (Bld) [#/Vol] 0 % Normal 0 [facility] Comment on above: Performed By: #### C DP, LIP #### [facility] [address] [place], [place] [address] Patrol Sergeant: Zafar Castillo MD Lymphocytes (Bld) [#/Vol] 1.79 10*3/uL Normal 1.10-3.70 [facility] Comment on above: Performed By: #### C DP, LIP #### [facility] [address] [place], [id number] Patrol Sergeant: Zafar Castillo MD Lymphocytes/100 WBC (Bld) 22 % Low 24-43 [facility] Comment on above: Performed By: #### C DP, LIP #### [address] [place] [id number] Patrol Sergeant: Zafar Castillo MD MCH (RBC) [Entitic mass] 32.3 pg Normal 25.2-33.5 [facility] Comment on above: Performed By: #### C DP, LIP #### [address] [place] [address] Patrol Sergeant: Zafar Castillo MD MCHC (RBC) [Mass/Vol] 33.1 g/dL Normal 28.4-34.8 [facility] Comment on above: Performed By: #### C DP, LIP #### [address] [place], [id number] Patrol Sergeant: Zafar Castillo MD MCV (RBC) [Entitic vol] 97.6 fL Normal 82.6-102.9 [facility] Comment on above: Performed By: #### C DP, LIP #### [address] [place] [phone] Patrol Sergeant: Zafar Castillo MD Monocytes (Bld) [#/Vol] 0.75 10*3/uL Normal 0.10-1.20 [facility] Comment on above: Performed By: #### C DP, LIP #### [facility] [address] [place], [place] [phone] Patrol Sergeant: Zafar Castillo MD Monocytes/100 WBC (Bld) 9 % Normal 3-12 [facility] Comment on above: Performed By: #### C DP, LIP #### [facility] [address] [place], [place] [address] Patrol Sergeant: Zafar Castillo MD Neutrophil (Seg) 67 % High 36-65 [facility] Comment on above: Performed By: #### C DP, LIP #### [facility] [address] [place], [id number] Patrol Sergeant: Zafar Castillo MD NRBC Automated 0.0 per [address] [facility] Comment on above: Performed By: #### C DP, LIP #### [facility] [address] [place], [id number] Patrol Sergeant: Zafar Castillo MD Platelet mean volume (Bld) [Entitic vol] 10.1 fL Normal 8.1-13.5 [facility] Comment on above: Performed By: #### C DP, LIP #### [facility] [address] [place] [address] Patrol Sergeant: Zafar Castillo MD Platelets (Bld) [#/Vol] 176 10*3/uL Normal 138-453 [facility] Comment on above: Performed By: #### C DP, LIP #### [facility] [address] [place] [address] Patrol Sergeant: Zafar Castillo MD RBC (Bld) [#/Vol] 3.68 10*6/uL Low 3.95-5.11 [facility] Comment on above: Performed By: #### C DP, LIP #### [facility] [address] [place], [id number] Patrol Sergeant: Zafar Castillo MD WBC (Bld) [#/Vol] 8.3 10*3/uL Normal 3.5-11.3 [facility] Comment on above: Performed By: #### C DP, LIP #### [facility] [address] [place], [place] [id number] Patrol Sergeant: Zafar Castillo MD Auto Diff Performed NOT REPORTED Normal [facility] Comment on above: Performed By: #### C DP, LIP #### [facility] [address] [place] [address] Patrol Sergeant: Zafar Castillo MD Platelets (Bld) [#/Vol] NOT REPORTED Normal [facility] Comment on above: Performed By: #### C DP, LIP #### [facility] [address] [place] [address] [place] [address] Patrol Sergeant: Zafar Castillo MD RBC morphology finding Nom (Bld) NOT REPORTED Normal [facility] Comment on above: Performed By: #### C DP, LIP #### [facility] [address] [place] [address] [place] [address] Patrol Sergeant: Zafar Castillo MD WBC Morphology NOT REPORTED Normal [facility] Comment on above: Performed By: #### C DP, LIP #### [facility] [address] [place] [address] Patrol Sergeant: Zafar Castillo MD Lipaseon 08-24-2019 Lipase [Catalytic activity/Vol] 69 U/L High 13-60 [facility] Comment on above: Performed By: #### C DP, LIP #### [facility] [address] [place], [place] [phone] Patrol Sergeant: Zafar Castillo MD Interpretation and review of laboratory results Abnormal [place] Lipase [Catalytic activity/Vol] 69 U/L High 13 - 60 U/L [place] CBC auto differentialon 08-07 Basophils (Bld) [#/Vol] 0.05 10*3/uL [place] Basophils/100 WBC (Bld) 1 % 0 - 2 % [place] Differential Type NOT REPORTED [place] Eosinophils (Bld) [#/Vol] 0.13 10*3/uL [place] Eosinophils/100 WBC (Bld) 2 % 1 - 4 % [place] Erythrocyte distribution width (RBC) [Ratio] 13.2 % 11.8 - 14.4 % [place] Hematocrit (Bld) [Volume fraction] 36.7 % 36.3 - 47.1 % [place] Hemoglobin (Bld) [Mass/Vol] 11.8 g/dL Low 11.9 - 15.1 g/dL [place] Immature granulocytes (Bld) [#/Vol] 0 % 0 [place] Immature granulocytes (Bld) [#/Vol] 10*3/uL [place] Interpretation and review of laboratory results Abnormal [place] Lymphocytes (Bld) [#/Vol] 2.39 10*3/uL [place] Lymphocytes/100 WBC (Bld) 28 % 24 - 43 % [place] MCH (RBC) [Entitic mass] 32.1 pg 25.2 - 33.5 pg [place] MCHC (RBC) [Mass/Vol] 32.2 g/dL 28.4 - 34.8 g/dL [place] MCV (RBC) [Entitic vol] 99.7 fL 82.6 - 102.9 fL [place] Monocytes (Bld) [#/Vol] 0.77 10*3/uL [place] Monocytes/100 WBC (Bld) 9 % 3 - 12 % [place] [place] Platelet mean volume (Bld) [Entitic vol] 10.1 fL 8.1 - 13.5 fL [place] Platelets (Bld) [#/Vol] 174 10*3/uL [place] Platelets (Bld) [#/Vol] NOT REPORTED [place] RBC (Bld) [#/Vol] 3.68 10*6/uL Low 3.95 - 5.11 m/uL [place] RBC morphology finding Nom (Bld) NOT REPORTED [place] Segmented neutrophils/100 WBC (Bld) 60 % 36 - 65 % [place] Segs Absolute 5.22 [place], [place] WBC (Bld) [#/Vol] 0.0 10*3/uL 0.0 per 100 WBC [place] WBC (Bld) [#/Vol] 8.6 10*3/uL [place] WBC Morphology NOT REPORTED [place], [place] CBC with Diffon 08-23-2019 Abs. Basophil 0.05 k/uL Normal 0.00-0.20 [facility] Comment on above: Performed By: #### C DP, LIP #### [address] [place] [id number] Patrol Sergeant: Zafar Castillo MD Abs.Imm.Granulocyte <0.03 Normal 0.00-0.30 [facility] Comment on above: Performed By: #### C DP, LIP #### [address] [place] [address] Patrol Sergeant: Zafar Castillo MD Abs.Neutrophil (Seg) 5.22 k/uL Normal 1.50-8.10 [facility] Comment on above: Performed By: #### C DP, LIP #### [address] [place] [address] Patrol Sergeant: Zafar Castillo MD Basophils/100 WBC (Bld) 1 % Normal 0-2 [facility] Comment on above: Performed By: #### C DP, LIP #### [address] [place] [id number] Patrol Sergeant: Zafar Castillo MD Eosinophils (Bld) [#/Vol] 0.13 10*3/uL Normal 0.00-0.44 [facility] Comment on above: Performed By: #### C DP, LIP #### [facility] [address] [place], [place] [id number] Patrol Sergeant: Zafar Castillo MD Eosinophils/100 WBC (Bld) 2 % Normal 1-4 [facility] Comment on above: Performed By: #### C DP, LIP #### [facility] [address] [place] [id number] Patrol Sergeant: Zafar Castillo MD Erythrocyte distribution width (RBC) [Ratio] 13.2 % Normal 11.8-14.4 [facility] Comment on above: Performed By: #### C DP, LIP #### [facility] [address] [place] [id number] Patrol Sergeant: Zafar Castillo MD Hematocrit (Bld) [Volume fraction] 36.7 % Normal 36.3-47.1 [facility] Comment on above: Performed By: #### C DP, LIP #### [facility] [address] [place], [id number] Patrol Sergeant: Zafar Castillo MD Hemoglobin (Bld) [Mass/Vol] 11.8 g/dL Low 11.9-15.1 [facility] Comment on above: Performed By: #### C DP, LIP #### [address] [place] [id number] Patrol Sergeant: Zafar Castillo MD Immature granulocytes (Bld) [#/Vol] 0 % Normal 0 [facility] Comment on above: Performed By: #### C DP, LIP #### [facility] [address] [place], [id number] Patrol Sergeant: Zafar Castillo MD Lymphocytes (Bld) [#/Vol] 2.39 10*3/uL Normal 1.10-3.70 [facility] Comment on above: Performed By: #### C DP, LIP #### [facility] [address] [place] [id number] Patrol Sergeant: Zafar Castillo MD Lymphocytes/100 WBC (Bld) 28 % Normal 24-43 [facility] Comment on above: Performed By: #### C DP, LIP #### [facility] [address] [place], [place] [id number] Patrol Sergeant: Zafar Castillo MD MCH (RBC) [Entitic mass] 32.1 pg Normal 25.2-33.5 [facility] Comment on above: Performed By: #### C DP, LIP #### [facility] [address] [place] [address] Patrol Sergeant: Zafar Castillo MD MCHC (RBC) [Mass/Vol] 32.2 g/dL Normal 28.4-34.8 [facility] Comment on above: Performed By: #### C DP, LIP #### [address] [place], [id number] Patrol Sergeant: Zafar Castillo MD MCV (RBC) [Entitic vol] 99.7 fL Normal 82.6-102.9 [facility] Comment on above: Performed By: #### C DP, LIP #### [facility] [address] [place] [address] Patrol Sergeant: Zafar Castillo MD Monocytes (Bld) [#/Vol] 0.77 10*3/uL Normal 0.10-1.20 [facility] Comment on above: Performed By: #### C DP, LIP #### [facility] [address] [place] [address] Patrol Sergeant: Zafar Castillo MD Monocytes/100 WBC (Bld) 9 % Normal 3-12 [facility] Comment on above: Performed By: #### C DP, LIP #### [facility] [address] [place] [address] Patrol Sergeant: Zafar Castillo MD Neutrophil (Seg) 60 % Normal 36-65 [facility] Comment on above: Performed By: #### C DP, LIP #### [facility] [address] [place], [place] [id number] Patrol Sergeant: Zafar Castillo MD NRBC Automated 0.0 per [address] [facility] Comment on above: Performed By: #### C DP, LIP #### [facility] [address] [place], [id number] Patrol Sergeant: Zafar Castillo MD Platelet mean volume (Bld) [Entitic vol] 10.1 fL Normal 8.1-13.5 [facility] Comment on above: Performed By: #### C DP, LIP #### [facility] [address] [place], [id number] Patrol Sergeant: Zafar Castillo MD Platelets (Bld) [#/Vol] 174 10*3/uL Normal 138-453 [facility] Comment on above: Performed By: #### C DP, LIP #### [address] [place], [id number] Patrol Sergeant: Zafar Castillo MD RBC (Bld) [#/Vol] 3.68 10*6/uL Low 3.95-5.11 [facility] Comment on above: Performed By: #### C DP, LIP #### [address] [place], [id number] Patrol Sergeant: Zafar Castillo MD WBC (Bld) [#/Vol] 8.6 10*3/uL Normal 3.5-11.3 [facility] Comment on above: Performed By: #### C DP, LIP #### [facility] [address] [place], [id number] Patrol Sergeant: Zafar Castillo MD Auto Diff Performed NOT REPORTED Normal [facility] Comment on above: Performed By: #### C DP, LIP #### [facility] [address] [place] [address] Patrol Sergeant: Zafar Castillo MD Platelets (Bld) [#/Vol] NOT REPORTED Normal [facility] Comment on above: Performed By: #### C DP, LIP #### [facility] [address] [place] [address] Patrol Sergeant: Zafar Castillo MD RBC morphology finding Nom (Bld) NOT REPORTED Normal [facility] Comment on above: Performed By: #### C DP, LIP #### [facility] [address] [place] [address] Patrol Sergeant: Zafar Castillo MD WBC Morphology NOT REPORTED Normal [facility] Comment on above: Performed By: #### C DP, LIP #### [facility] [address] [place] [address] Patrol Sergeant: Zafar Castillo MD Comp Metabolic Profon 2019 (cont.) Normal [facility] Comment on above: Result Comment: Aver age GFR for 50-59 years old: 93 mL/min/1.73sq m Chronic Kidney Disease: <60 mL/min/1.73sq m Kidney failure: <15 mL/min/1.73sq m eGFR calculated using average adult body mass. Additional eGFR calculator available at: http://www.[employer].AdverseEvents/multiple_crcl_2012.htm Performed By: #### C DP, LIP #### [facility] [address] [place] [address] Patrol Sergeant: Zafar Castillo MD Albumin [Mass/Vol] 3.4 g/dL Low 3.5-5.2 [facility] Comment on above: Performed By: #### C DP, LIP #### [facility] [address] [place] [address] Patrol Sergeant: Zafar Castillo MD Albumin/Globulin [Mass ratio] 1.7 {ratio} Normal 1.0-2.5 [facility] Comment on above: Performed By: #### C DP, LIP #### [facility] [address] [place], [place] [id number] Patrol Sergeant: Zafar Castillo MD Alkaline Phos 102 U/L Normal 35-104 [facility] Comment on above: Performed By: #### C DP, LIP #### [facility] [address] [place], [place] 2806683 Patrol Sergeant: Zafar Castillo MD ALT [Catalytic activity/Vol] 34 U/L High 5-33 [facility] Comment on above: Performed By: #### C DP, LIP #### [facility] [address] [place], [place] 1557583 Patrol Sergeant: Zafar Castillo MD Anion gap [Moles/Vol] 7 mmol/L Low 9-17 [facility] Comment on above: Performed By: #### C DP, LIP #### [facility] [address] [place], [place] 2860683 Patrol Sergeant: Zafar Castillo MD AST [Catalytic activity/Vol] 95 U/L High <32 [facility] Comment on above: Performed By: #### C DP, LIP #### [facility] [address] [place], [place] 2341683 Patrol Sergeant: Zafar Castillo MD Bilirubin Ql (U) 0.46 mg/dL Normal 0.3-1.2 [facility] Comment on above: Performed By: #### C DP, LIP #### [facility] [address] [place], [place] 4590683 Patrol Sergeant: Zafar Castillo MD BUN/CRE Ratio 11 Normal 9-20 [facility] Comment on above: Performed By: #### C DP, LIP #### [facility] [address] [place], [place] 8103883 Patrol Sergeant: Zafar Castillo MD Calcium [Mass/Vol] 8.4 mg/dL Low 8.6-10.4 [facility] Comment on above: Performed By: #### C DP, LIP #### [facility] [address] [place], [place] 1032683 Patrol Sergeant: Zafar Castillo MD Chloride [Moles/Vol] 109 mmol/L High 98-107 [facility] Comment on above: Performed By: #### C DP, LIP #### [facility] [address] [place], [place] 9182383 Patrol Sergeant: Zafar Castillo MD CO2 [Moles/Vol] 22 mmol/L Normal 20-31 [facility] Comment on above: Performed By: #### C DP, LIP #### [facility] [address] [place], [place] 1778183 Patrol Sergeant: Zafar Castillo MD Creatinine [Mass/Vol] 0.66 mg/dL Normal 0.50-0.90 [facility] Comment on above: Performed By: #### C DP, LIP #### [facility] [address] [place], [place] 6533083 Patrol Sergeant: Zafar Castillo MD GFR, Amer >60 Normal >60 [facility] Comment on above: Performed By: #### C DP, LIP #### [facility] [address] [place], [place] 4772183 Patrol Sergeant: Zafar Castillo MD GFR,non Amer >60 Normal >60 [facility] Comment on above: Performed By: #### C DP, LIP #### [facility] [address] [place], [place] 5241883 Patrol Sergeant: Zafar Castillo MD Glucose [Mass/Vol] 89 mg/dL Normal 70-99 [facility] Comment on above: Performed By: #### C DP, LIP #### [facility] [address] [place], [place] 1448183 Patrol Sergeant: Zafar Castillo MD Potassium [Moles/Vol] 4.3 mmol/L Normal 3.7-5.3 [facility] Comment on above: Performed By: #### C DP, LIP #### [facility] [address] [place] [address] Patrol Sergeant: Zafar Castillo MD Protein [Mass/Vol] 5.4 g/dL Low 6.4-8.3 [facility] Comment on above: Performed By: #### C DP, LIP #### [facility] [address] [place] [address] Patrol Sergeant: Zafar Castillo MD Sodium [Moles/Vol] 138 mmol/L Normal 135-144 [facility] Comment on above: Performed By: #### C DP, LIP #### [facility] [address] [place] [address] Patrol Sergeant: Zafar Castillo MD Staging: Normal [facility] Comment on above: Result Comment: Stag e 1: Some kidney damage normal GFR Stage 2: Mild kidney damage GFR 60-89 Stage 3: Moderate kidney damage GFR 30-59 Stage 4: Severe kidney damage GFR 15-29 Stage 5: Severe kidney damage GFR <15 ESRD - chronic treatment by dialysis or transplant Performed By: #### C DP, LIP #### [facility] [address] [place] [address] Patrol Sergeant: Zafar Castillo MD Urea nitrogen [Mass/Vol] 7 mg/dL Normal 6-20 [facility] Comment on above: Performed By: #### C DP, LIP #### [facility] [address] [place] [address] Patrol Sergeant: Zafar Castillo MD Comprehensive metabolic pane nimesh 08-23-2019 Albumin [Mass/Vol] 3.4 g/dL Low 3.5 - 5.2 g/dL [place] Albumin/Globulin [Mass ratio] 1.7 {ratio} [place] ALP [Catalytic activity/Vol] 102 U/L 35 - 104 U/L [place] ALT [Catalytic activity/Vol] 34 U/L High 5 - 33 U/L [place] Anion gap [Moles/Vol] 7 mmol/L Low 9 - 17 mmol/L [place] AST [Catalytic activity/Vol] 95 U/L High <32 [place] Bilirubin Ql (U) 0.46 mg/dL 0.3 - 1.2 mg/dL [place] Bun/Cre Ratio 11 [place], [place] Calcium [Mass/Vol] 8.4 mg/dL Low 8.6 - 10. 4 mg/dL [place] Chloride [Moles/Vol] 109 mmol/L High 98 - 10 7 mmol/L [place] CO2 [Moles/Vol] 22 mmol/L 20 - 31 mmol/L [place] Creatinine [Mass/Vol] 0.66 mg/dL 0.5 - 0.9 mg/dL [place] GFR >60 >60 mL/min [place], [place] GFR Non- >60 >60 mL/min [place] Glucose [Mass/Vol] 89 mg/dL 70 - 99 mg/dL [place] Potassium [Moles/Vol] 4.3 mmol/L 3.7 - 5.3 mmol/L [place] Protein [Mass/Vol] 5.4 g/dL Low 6.4 - 8.3 g/dL [place] Sodium [Moles/Vol] 138 mmol/L 135 - 144 mmol/L [place] Urea nitrogen [Mass/Vol] 7 mg/dL 6 - 20 mg/dL [place] Lipaseon 08-23-2019 Lipase [Catalytic activity/Vol] 96 U/L High 13-60 [facility] Comment on above: Performed By: #### C DP, LIP #### [facility] [address] [place] [address] Patrol Sergeant: Zafar Castillo MD Lipase [Catalytic activity/Vol] 96 U/L High 13 - 60 U/L [place] Metabolic Panelon 08-23-2019 GFR/1.73 sq M predicted among non-blacks MDRD (S/P/Bld) [Vol rate/Area] [place], [place] Comment on above: Stage 1: Some [...] body mass. Additional eGFR calculator available at: http://www.[employer]/iloho_crcl_2012.htm Otheron 08-23-2019 Interpretation and review of laboratory results Abnormal [place], [place] CBC Auto Differentialon 08-07 Basophils (Bld) [#/Vol] 0.06 10*3/uL [place] Basophils/100 WBC (Bld) 1 % 0 - 2 % [place] Differential Type NOT REPORTED [place], [place] Eosinophils (Bld) [#/Vol] 0.11 10*3/uL [place] Eosinophils/100 WBC (Bld) 1 % 1 - 4 % [place] Erythrocyte distribution width (RBC) [Ratio] 13.2 % 11.8 - 14.4 % [place] Hematocrit (Bld) [Volume fraction] 41.8 % 36.3 - 47.1 % [place] Hemoglobin (Bld) [Mass/Vol] 13.7 g/dL 11.9 - 15.1 g/dL [place] Immature granulocytes (Bld) [#/Vol] 0.03 10*3/uL [place] Immature granulocytes (Bld) [#/Vol] 0 % 0 [place] Interpretation and review of laboratory results Abnormal [place] Lymphocytes (Bld) [#/Vol] 2.23 10*3/uL [place] Lymphocytes/100 WBC (Bld) 24 % 24 - 43 % [place] MCH (RBC) [Entitic mass] 32.6 pg 25.2 - 33.5 pg [place] MCHC (RBC) [Mass/Vol] 32.8 g/dL 28.4 - 34.8 g/dL [place] MCV (RBC) [Entitic vol] 99.5 fL 82.6 - 102.9 fL [place], [place] Monocytes (Bld) [#/Vol] 0.72 10*3/uL [place] Monocytes/100 WBC (Bld) 8 % 3 - 12 % [place] Platelet mean volume (Bld) [Entitic vol] 10.0 fL 8.1 - 13.5 fL [place], [place] Platelets (Bld) [#/Vol] NOT REPORTED [place], [place] Platelets (Bld) [#/Vol] 213 10*3/uL [place] RBC (Bld) [#/Vol] 4.20 10*6/uL 3.95 - 5.11 m/uL [place], [place] RBC morphology finding Nom (Bld) NOT REPORTED [place], [place] Segmented neutrophils/100 WBC (Bld) 66 % High 36 - 65 % [place], [place] Segs Absolute 6.22 [place], [place] WBC (Bld) [#/Vol] 0.0 10*3/uL 0.0 per 100 WBC [place] WBC (Bld) [#/Vol] 9.4 10*3/uL [place] WBC Morphology NOT REPORTED [place], [place] CBC with Diffon 08-22-2019 Abs. Basophil 0.06 k/uL Normal 0.00-0.20 [facility] Comment on above: Performed By: #### C P, WALTER, LIP #### [facility] [address] [place] [address] Patrol Sergeant: Zafar Castillo MD Abs.Imm.Granulocyte 0.03 k/uL Normal 0.00-0.30 [facility] Comment on above: Performed By: #### C P, CDP, LIP #### [facility] [address] [place], [id number] Patrol Sergeant: Zafar Castillo MD Abs.Neutrophil (Seg) 6.22 k/uL Normal 1.50-8.10 [facility] Comment on above: Performed By: #### C P, CDP, LIP #### [facility] [address] [place] [id number] Patrol Sergeant: Zafar Castillo MD Basophils/100 WBC (Bld) 1 % Normal 0-2 [facility] Comment on above: Performed By: #### C P, CDP, LIP #### [address] [place] [address] Patrol Sergeant: Zafar Castillo MD Eosinophils (Bld) [#/Vol] 0.11 10*3/uL Normal 0.00-0.44 [facility] Comment on above: Performed By: #### C P, CDP, LIP #### [address] [place], [place] [address] Patrol Sergeant: Zafar Castillo MD Eosinophils/100 WBC (Bld) 1 % Normal 1-4 [facility] Comment on above: Performed By: #### C P, CDP, LIP #### [address] [place] [address] Patrol Sergeant: Zafar Castillo MD Erythrocyte distribution width (RBC) [Ratio] 13.2 % Normal 11.8-14.4 [facility] Comment on above: Performed By: #### C P, CDP, LIP #### [address] [place] [id number] Patrol Sergeant: Zafar Castillo MD Hematocrit (Bld) [Volume fraction] 41.8 % Normal 36.3-47.1 [facility] Comment on above: Performed By: #### C P, CDP, LIP #### [address] [place] [address] Patrol Sergeant: Zafar Castillo MD Hemoglobin (Bld) [Mass/Vol] 13.7 g/dL Normal 11.9-15.1 [facility] Comment on above: Performed By: #### C P, CDP, LIP #### [facility] [address] [place] [address] Patrol Sergeant: Zafar Castillo MD Immature granulocytes (Bld) [#/Vol] 0 % Normal 0 [facility] Comment on above: Performed By: #### C P, CDP, LIP #### [facility] [address] [place] [address] Patrol Sergeant: Zafar Castillo MD Lymphocytes (Bld) [#/Vol] 2.23 10*3/uL Normal 1.10-3.70 [facility] Comment on above: Performed By: #### C P, CDP, LIP #### [address] [place], [id number] Patrol Sergeant: Zafar Castillo MD Lymphocytes/100 WBC (Bld) 24 % Normal 24-43 [facility] Comment on above: Performed By: #### C P, CDP, LIP #### [address] [place], [id number] Patrol Sergeant: Zafar Castillo MD MCH (RBC) [Entitic mass] 32.6 pg Normal 25.2-33.5 [facility] Comment on above: Performed By: #### C P, CDP, LIP #### [address] [place], [id number] Patrol Sergeant: Zafar Castillo MD MCHC (RBC) [Mass/Vol] 32.8 g/dL Normal 28.4-34.8 [facility] Comment on above: Performed By: #### C P, CDP, LIP #### [facility] [address] [place] [address] Patrol Sergeant: Zafar Castillo MD MCV (RBC) [Entitic vol] 99.5 fL Normal 82.6-102.9 [facility] Comment on above: Performed By: #### C P, CDP, LIP #### [facility] [address] [place], [id number] Patrol Sergeant: Zafar Castillo MD Monocytes (Bld) [#/Vol] 0.72 10*3/uL Normal 0.10-1.20 [facility] Comment on above: Performed By: #### C P, CDP, LIP #### [facility] [address] [place], [place] [address] Patrol Sergeant: Zafar Castillo MD Monocytes/100 WBC (Bld) 8 % Normal 3-12 [facility] Comment on above: Performed By: #### C P, CDP, LIP #### [facility] [address] [place], [place] [address] Patrol Sergeant: Zafar Castillo MD Neutrophil (Seg) 66 % High 36-65 [facility] Comment on above: Performed By: #### C P, CDP, LIP #### [facility] [address] [place], [place] [address] Patrol Sergeant: Zafar Castillo MD NRBC Automated 0.0 per [address] [facility] Comment on above: Performed By: #### C P, CDP, LIP #### [facility] [address] [place], [place] [address] Patrol Sergeant: Zafar Castillo MD Platelet mean volume (Bld) [Entitic vol] 10.0 fL Normal 8.1-13.5 [facility] Comment on above: Performed By: #### C P, CDP, LIP #### [facility] [address] [place], [id number] Patrol Sergeant: Zafar Castillo MD Platelets (Bld) [#/Vol] 213 10*3/uL Normal 138-453 [facility] Comment on above: Performed By: #### C P, CDP, LIP #### [facility] [address] [place] [address] Patrol Sergeant: Zafar Castillo MD RBC (Bld) [#/Vol] 4.20 10*6/uL Normal 3.95-5.11 [facility] Comment on above: Performed By: #### C P, CDP, LIP #### [facility] [address] [place] [address] Patrol Sergeant: Zafar Castillo MD WBC (Bld) [#/Vol] 9.4 10*3/uL Normal 3.5-11.3 [facility] Comment on above: Performed By: #### C P, CDP, LIP #### [facility] [address] [place] [address] Patrol Sergeant: Zafar Castillo MD Auto Diff Performed NOT REPORTED Normal [facility] Comment on above: Performed By: #### C P, CDP, LIP #### [facility] [address] [place] [address] Patrol Sergeant: Zafar Castillo MD Platelets (Bld) [#/Vol] NOT REPORTED Normal [facility] Comment on above: Performed By: #### C P, CDP, LIP #### [facility] [address] [place] [address] Patrol Sergeant: Zafar Castillo MD RBC morphology finding Nom (Bld) NOT REPORTED Normal [facility] Comment on above: Performed By: #### C P, CDP, LIP #### [facility] [address] [place], [place] 26[address]3 Patrol Sergeant: Zafar Castillo MD WBC Morphology NOT REPORTED Normal [facility] Comment on above: Performed By: #### C P, CDP, LIP #### [facility] [address] [place], [place] 5466083 Patrol Sergeant: Zafar Castillo MD Comp Metabolic Profon 2019 Bilirubin Ql (U) <0.10 Low 0.3-1.2 [facility] Comment on above: Performed By: #### C DP, LIP #### [facility] [address] [place] [address] Patrol Sergeant: Zafar Castillo MD (cont.) [facility] Comment on above: Result Comment: Aver age GFR for 50-59 years old: 93 mL/min/1.73sq m Chronic Kidney Disease: <60 mL/min/1.73sq m Kidney failure: <15 mL/min/1.73sq m eGFR calculated using average adult body mass. Additional eGFR calculator available at: http://www.[employer]/multiple_crcl_2011.htm Performed By: #### C DP, LIP #### [facility] [address] [place] [address] Patrol Sergeant: Zafar Castillo MD Albumin [Mass/Vol] 4.1 g/dL Normal 3.5-5.2 [facility] Comment on above: Performed By: #### C DP, LIP #### [facility] [address] [place], [place] 3390983 Patrol Sergeant: Zafar Castillo MD Albumin/Globulin [Mass ratio] 1.6 {ratio} Normal 1.0-2.5 [facility] Comment on above: Performed By: #### C DP, LIP #### [facility] [address] [place], [place] 7975983 Patrol Sergeant: Zafar Castillo MD Alkaline Phos 109 U/L High 35-104 [facility] Comment on above: Performed By: #### C DP, LIP #### [facility] [address] [place] [address] Patrol Sergeant: Zafar Castillo MD ALT [Catalytic activity/Vol] 13 U/L Normal 5-33 [facility] Comment on above: Performed By: #### C DP, LIP #### [facility] [address] [place], [place] 6068783 Patrol Sergeant: Zafar Castillo MD Anion gap [Moles/Vol] 9 mmol/L Normal 9-17 [facility] Comment on above: Performed By: #### C DP, LIP #### [facility] [address] [place], [place] 288[address]883 Patrol Sergeant: Zafar Castillo MD AST [Catalytic activity/Vol] 22 U/L Normal <32 [facility] Comment on above: Performed By: #### C DP, LIP #### [facility] [address] [place], [place] 8588183 Patrol Sergeant: Zafar Castillo MD BUN/CRE Ratio 13 Normal 9-20 [facility] Comment on above: Performed By: #### C DP, LIP #### [facility] [address] [place], [place] 298[address]83 Patrol Sergeant: Zafar Castillo MD Calcium [Mass/Vol] 9.2 mg/dL Normal 8.6-10.4 [facility] Comment on above: Performed By: #### C DP, LIP #### [facility] [address] [place], [place] 3608283 Patrol Sergeant: Zafar Castillo MD Chloride [Moles/Vol] 103 mmol/L Normal 98-107 [facility] Comment on above: Performed By: #### C DP, LIP #### [facility] [address] [place], [place] 586[address]83 Patrol Sergeant: Zafar Castillo MD CO2 [Moles/Vol] 24 mmol/L Normal 20-31 [facility] Comment on above: Performed By: #### C DP, LIP #### [facility] [address] [place], [place] 0187383 Patrol Sergeant: Zafar Castillo MD Creatinine [Mass/Vol] 0.63 mg/dL Normal 0.50-0.90 [facility] Comment on above: Performed By: #### C DP, LIP #### [facility] [address] [place], [place] 1906983 Patrol Sergeant: Zafar Castillo MD GFR, Amer >60 Normal >60 [facility] Comment on above: Performed By: #### C DP, LIP #### [facility] [address] [place], [place] [address]83 Patrol Sergeant: Zafar Castillo MD GFR,non Amer >60 Normal >60 [facility] Comment on above: Performed By: #### C DP, LIP #### [facility] [address] [place], [place] [id number] Patrol Sergeant: Zafar Castillo MD Glucose [Mass/Vol] 92 mg/dL Normal 70-99 [facility] Comment on above: Performed By: #### C DP, LIP #### [facility] [address] [place], [place] [id number] Patrol Sergeant: Zafar Castillo MD Potassium [Moles/Vol] 3.8 mmol/L Normal 3.7-5.3 [facility] Comment on above: Performed By: #### C DP, LIP #### [facility] [address] [place], [place] [id number] Patrol Sergeant: Zafar Castillo MD Protein [Mass/Vol] 6.7 g/dL Normal 6.4-8.3 [facility] Comment on above: Performed By: #### C DP, LIP #### [facility] [address] [place], [place] [id number] Patrol Sergeant: Zafar Castillo MD Sodium [Moles/Vol] 136 mmol/L Normal 135-144 [facility] Comment on above: Performed By: #### C DP, LIP #### [facility] [address] [place], [place] [id number] Patrol Sergeant: Zafar Castillo MD Staging: Normal [facility] Comment on above: Result Comment: Stag e 1: Some kidney damage normal GFR Stage 2: Mild kidney damage GFR 60-89 Stage 3: Moderate kidney damage GFR 30-59 Stage 4: Severe kidney damage GFR 15-29 Stage 5: Severe kidney damage GFR <15 ESRD - chronic treatment by dialysis or transplant Performed By: #### C DP, LIP #### [facility] [address] [place] [address] Patrol Sergeant: Zafar Castillo MD Urea nitrogen [Mass/Vol] 8 mg/dL Normal 6-20 [facility] Comment on above: Performed By: #### C DP, LIP #### [facility] [address] [place] [address] Patrol Sergeant: Zafar Castillo MD [facility] Metabolic [facility] 08-22-2019 Albumin [Mass/Vol] 4.1 g/dL 3.5 - 5.2 g/dL [place], [place] Albumin/Globulin [Mass ratio] 1.6 {ratio} [place] ALP [Catalytic activity/Vol] 109 U/L High 35 - 104 U/L [place] ALT [Catalytic activity/Vol] 13 U/L 5 - 33 U/L [place] Anion gap [Moles/Vol] 9 mmol/L 9 - 17 mmol/L [place] AST [Catalytic activity/Vol] 22 U/L <32 [place] Bilirubin Ql (U) <0.10 Low 0.3 - 1.2 mg/dL [place] Bun/Cre Ratio 13 [place], [place] Calcium [Mass/Vol] 9.2 mg/dL 8.6 - 10. 4 mg/dL [place] Chloride [Moles/Vol] 103 mmol/L 98 - 10 7 mmol/L [place] CO2 [Moles/Vol] 24 mmol/L 20 - 31 mmol/L [place] Creatinine [Mass/Vol] 0.63 mg/dL 0.5 - 0.9 mg/dL [place] GFR >60 >60 mL/min [place] GFR Non- >60 >60 mL/min [place] Glucose [Mass/Vol] 92 mg/dL 70 - 99 mg/dL [place] Interpretation and review of laboratory results Abnormal [place] Potassium [Moles/Vol] 3.8 mmol/L 3.7 - 5.3 mmol/L [place] Protein [Mass/Vol] 6.7 g/dL 6.4 - 8.3 g/dL [place] Sodium [Moles/Vol] 136 mmol/L 135 - 144 mmol/L [place] Urea nitrogen [Mass/Vol] 8 mg/dL 6 - 20 mg/dL [place] Lactic Acidon 08-22-2019 Lactate [Moles/Vol] 1.5 mmol/L Normal 0.5-2.2 [facility] Comment on above: Performed By: #### L ACTIC #### [facility] [address] [place] [address] [place] [address] Patrol Sergeant: Zafar Castillo MD Lactate [Moles/Vol] NOT REPORTED Normal 0.7-2.1 [facility] Comment on above: Performed By: #### L ACTIC #### [facility] [address] [place] [address] Patrol Sergeant: Zafar Castillo MD Lactic Acid, Plasmaon 2019 Lactate [Moles/Vol] 1.5 mmol/L 0.5 - 2. 2 mmol/L [place] Lactic Acid, Whole Blood NOT REPORTED 0.7 - 2.1 mmol/L [place] Lipaseon 08-22-2019 Lipase [Catalytic activity/Vol] 255 U/L Critically high 13-60 [facility] Comment on above: Performed By: #### C DP, LIP #### [facility] [address] [place] [address] Patrol Sergeant: Zafar Castillo MD Interpretation and review of laboratory results Abnormal [place] Lipase [Catalytic activity/Vol] 255 U/L Critically high 13 - 60 U/L [place] Metabolic Panelon 08-22-2019 GFR/1.73 sq M predicted among non-blacks MDRD (S/P/Bld) [Vol rate/Area] [place] Comment on above: Average GFR for 50-5 9 years old: 93 mL/min/1.73sq m Chronic Kidney Disease: <60 mL/min/1.73sq m Kidney failure: <15 mL/min/1.73sq m eGFR calculated using average adult body mass. Additional eGFR calculator available at: [email or web address] Stage 1: Some kidney damage normal GFR Stage 2: Mild kidney damage GFR 60-89 Stage 3: Moderate kidney damage GFR 30-59 Stage 4: Severe kidney damage GFR 15-29 Stage 5: Severe kidney damage GFR <15 ESRD - chronic treatment by dialysis or transplant Urinalysis w/ Microon 2019 ----- Normal [facility] Comment on above: Performed By: #### C DP, LIP #### [facility] [address] [place] [address] Patrol Sergeant: Zafar Castillo MD Acetoacetic Acid,Ur Negative Normal NEG [facility] Comment on above: Performed By: #### C DP, LIP #### [facility] [address] [place] [address] Patrol Sergeant: Zafar Castillo MD Bilirubin, SemiQt,Ur Negative Normal NEG [facility] Comment on above: Performed By: #### C DP, LIP #### [facility] [address] [place] [address] Patrol Sergeant: Zafar Castillo MD Color (U) YELLOW Normal YEL [facility] Comment on above: Performed By: #### C DP, LIP #### [facility] [address] [place] [address] Patrol Sergeant: Zafar Castillo MD Epithelial cells LM.HPF (Urine sed) [#/Area] 2 TO 5 Normal 0-25 [facility] Comment on above: Performed By: #### C DP, LIP #### [facility] [address] [place], [id number] Patrol Sergeant: Zafar Castillo MD Glucose Ql (U) Negative Normal NEG [facility] Comment on above: Performed By: #### C DP, LIP #### [facility] [address] [place], [id number] Patrol Sergeant: Zafar Castillo MD Hemoglobin, Ur Negative Normal NEG [facility] Comment on above: Performed By: #### C DP, LIP #### [facility] [address] [place] [id number] Patrol Sergeant: Zafar Castillo MD Leukocyte esterase Test strip Ql (U) Negative Normal NEG [facility] Comment on above: Performed By: #### C DP, LIP #### [facility] [address] [place], [id number] Patrol Sergeant: Zafar Castillo MD Nitrite,Ur Negative Normal [facility] Comment on above: Performed By: #### C DP, LIP #### [address] [place] [id number] Patrol Sergeant: Zafar Castillo MD pH (U) 6.0 [pH] Normal 5.0-9.0 [facility] Comment on above: Performed By: #### C DP, LIP #### [facility] [address] [place], [id number] Patrol Sergeant: Zafar Castillo MD Protein Ql (U) Negative Normal NEG [facility] Comment on above: Performed By: #### C DP, LIP #### [facility] [address] [place] [address] Patrol Sergeant: Zafar Castillo MD RBC (U) [#/Vol] None Normal 0-2 [facility] Comment on above: Performed By: #### C DP, LIP #### [facility] [address] [place], [place] [id number] Patrol Sergeant: Zafar Castillo MD Specific gravity (U) [Rel density] <1.005 Low 1.010-1.[address] [facility] Comment on above: Performed By: #### C DP, LIP #### [facility] [address] [place], [place] [phone] Patrol Sergeant: Zafar Castillo MD Turbidity CLEAR Normal CLEAR [facility] Comment on above: Performed By: #### C DP, LIP #### [facility] [address] [place], [place] [id number] Patrol Sergeant: Zafar Castillo MD Urobilinogen,Ur Normal Normal NORM [facility] Comment on above: Performed By: #### C DP, LIP #### [facility] [address] [place] [id number] Patrol Sergeant: Zafar Castillo MD WBC (U) [#/Vol] None Normal 0-5 [facility] Comment on above: Performed By: #### C DP, LIP #### [facility] [address] [place] [address] Patrol Sergeant: Zafar Castillo MD Amorphous sediment LM Ql (Urine sed) NOT REPORTED Normal [facility] Comment on above: Performed By: #### C DP, LIP #### [facility] [address] [place], [id number] Patrol Sergeant: Zafar Castillo MD Bacteria LM.HPF (Urine sed) [#/Area] NOT REPORTED Normal [facility] Comment on above: Performed By: #### C DP, LIP #### [facility] [address] [place], [place] [id number] Patrol Sergeant: Zafar Castillo MD Casts LM.LPF (Urine sed) [#/Area] NOT REPORTED Normal [facility] Comment on above: Performed By: #### C DP, LIP #### [facility] [address] [place] [address] Patrol Sergeant: Zafar Castillo MD Comment NOT REPORTED Normal [facility] Comment on above: Performed By: #### C DP, LIP #### [facility] [address] [place] [address] Patrol Sergeant: Zafar Castillo MD Crystals LM Nom (Urine sed) NOT REPORTED Normal [facility] Comment on above: Performed By: #### C DP, LIP #### [facility] [address] [place] [address] Patrol Sergeant: Zafar Castillo MD Epithelial, Renal NOT REPORTED Normal 0 [facility] Comment on above: Performed By: #### C DP, LIP #### [facility] [address] [place] [address] Patrol Sergeant: Zafar Castillo MD Mucus Strands NOT REPORTED Normal [facility] Comment on above: Performed By: #### C DP, LIP #### [facility] [address] [place] [address] Patrol Sergeant: Zafar Castillo MD Other Observations NOT REPORTED Normal [facility]ast [facility] Comment on above: Performed By: #### C DP, LIP #### [facility] [address] [place] [address] Patrol Sergeant: Zafar Castillo MD Trichomonas NOT REPORTED Normal NONE [facility] Comment on above: Performed By: #### C DP, LIP #### [facility] [address] [place] [address] Patrol Sergeant: Zafar Castillo MD Yeast LM Ql (Urine sed) NOT REPORTED Normal [facility] Comment on above: Performed By: #### C DP, LIP #### [facility] [address] [place], [place] [phone] Patrol Sergeant: Zafar Castillo MD Urinalysis with Microscopico n 08-22-2019 Amorphous, UA NOT REPORTED None [place] Bacteria, UA NOT REPORTED None [place], [place] Bilirubin Urine Negative NEGATIVE [facility], [place] Casts UA NOT REPORTED /LPF [place] Color, UA YELLOW YELLOW [place] Crystals, UA NOT REPORTED None /HPF [facility], [place] Epithelial Cells UA 2 TO 5 [place] Glucose, Ur Negative NEGATIVE [place] Interpretation and review of laboratory results Abnormal [place] Ketones Ql (U) Negative NEGATIVE [place] Leukocyte esterase Test strip Ql (U) Negative NEGATIVE [place] Mucus, UA NOT REPORTED None [place] Nitrite, Urine Negative NEGATIVE [place] Other Observations UA NOT REPORTED NOT REQ. M [place], [place] pH, UA 6.0 [place] Protein (U) [Mass/Vol] Negative NEGATIVE [place] RBC (U) [#/Vol] None [place] Renal Epithelial, UA NOT REPORTED 0 /HPF [place] Specific [place], UA <1.005 Low [place] Trichomonas, UA NOT REPORTED None [place], [place] Turbidity UA CLEAR CLEAR [place] Urinalysis Comments NOT REPORTED [place] Urine Hgb Negative NEGATIVE [place] Urobilinogen, Urine Normal Normal [place] WBC, UA None [place] Yeast, UA NOT REPORTED None [place], [place] - [place] CBC WITH AUTO DIFFERENTIALon 03-04-2018 Basophils Auto #/vol (Bld) 0.07 10*3/uL Invalid Interpretation Code [facility] Basophils/100 WBC Auto (Bld) 0.7 % Invalid Interpretation Code [facility] Eosinophils Auto #/vol (Bld) 0.09 10*3/uL Invalid Interpretation Code [facility] Eosinophils/100 WBC Auto (Bld) 0.9 % Invalid Interpretation Code [facility] Erythrocyte distribution width Auto Entitic volume (RBC) 12.8 % Invalid Interpretation Code 11.6 - 14.8 % [facility] Hematocrit Auto Volume Fraction (Bld) 45.0 % Invalid Interpretation Code 36 - 46 % [facility] Hemoglobin mass conc (Bld) 15.4 g/dL Invalid Interpretation Code 12 - 16 g/dL [facility] Immature granulocytes #/vol (Bld) 0.03 10*3/uL Invalid Interpretation Code [facility] Immature granulocytes/100 WBC (Bld) 0.30 % Invalid Interpretation Code [facility] Comment on above: The IG parameter is the percentage of metamyelocytes, myelocytes, and promyelocytes. Interpretation and review of laboratory results Abnormal Invalid Interpretation Code [facility] Lymphocytes Auto #/vol (Bld) 2.22 10*3/uL Invalid Interpretation Code [facility] Lymphocytes/100 WBC Auto (Bld) 21.0 % Invalid Interpretation Code [facility] MCH Auto Entitic mass (RBC) 33.6 pg Invalid Interpretation Code 26 - 34 pg [facility] MCHC Auto mass conc (RBC) 34.2 g/dL Invalid Interpretation Code 31 - 37 g/dL [facility] MCV Auto Entitic volume (RBC) 98.0 fL Invalid Interpretation Code 80 - 100 fL [facility] Monocytes Auto #/vol (Bld) 0.82 10*3/uL Invalid Interpretation Code [facility] Monocytes/100 WBC Auto (Bld) 7.8 % Invalid Interpretation Code [facility] Neutrophils Auto #/vol (Bld) 7.33 10*3/uL High [facility] Neutrophils/100 WBC Auto (Bld) 69.3 % Invalid Interpretation Code [facility] Nucleated RBC #/vol (Bld) 0.00 10*3/uL Invalid Interpretation Code [facility] Nucleated RBC/100 WBC Ratio (Bld) 0.0 % Invalid Interpretation Code [facility] Platelet mean volume Auto Entitic volume (Bld) 10.1 fL Invalid Interpretation Code 9 - 15.5 fL [facility] Platelets Auto #/vol (Bld) 254 10*3/uL Invalid Interpretation Code [facility] RBC Auto #/vol (Bld) 4.59 10*6/uL Invalid Interpretation Code [facility] WBC Auto #/vol (Bld) 10.56 10*3/uL Invalid Interpretation Code [facility] Chem 7on 03-04-2018 Anion gap 3 molar conc 15 mmol/L Invalid Interpretation Code 10 - 20 mmol/L [facility] Chloride molar conc 103 mmol/L Invalid Interpretation Code 98 - 108 mmol/L [facility] Creatinine mass conc 0.85 mg/dL Invalid Interpretation Code 0.4 - 1.1 mg/dL [facility] GFR/1.73 sq M predicted among non-blacks MDRD vol rate/area (S/P/Bld) The eGFR should be used for monitoring renal function only and not for medication dosing. Invalid Interpretation Code [facility] GFR/1.73 sq M.predicted CKD-EPI vol rate/area (S/P/Bld) 81 Invalid Interpretation Code >=60 mL/min/1.7 3 m2 [facility] Glucose mass conc 92 mg/dL Invalid Interpretation Code 65 - 99 mg/dL [facility] HCO3 molar conc 25 mmol/L Invalid Interpretation Code 21 - 32 mmol/L [facility] Potassium molar conc 4.4 mmol/L Invalid Interpretation Code 3.5 - 5.1 mmol/L [facility] Sodium molar conc 139 mmol/L Invalid Interpretation Code 135 - 145 mmol/L [facility] Urea nitrogen mass conc 7 mg/dL Low 8 - 25 mg/dL [facility] Urea nitrogen/Creatinine mass ratio 8.2 mg/mg Low [facility] Hepatic Function Panel (LFT) on 03-04-2018 Albumin mass conc 4.5 g/dL Invalid Interpretation Code 3.2 - 5.2 g/dL [facility] ALP enzyme act/vol 97 U/L Invalid Interpretation Code 40 - 150 U/L [facility] ALT enzyme act/vol 9 U/L Invalid Interpretation Code 0 - 40 U/L [facility] AST enzyme act/vol 15 U/L Invalid Interpretation Code 0 - 45 U/L [facility] Bilirubin mass conc mg/dL Invalid Interpretation Code 0 - 1.3 mg/dL [facility] Bilirubin.conjugated mass conc mg/dL Invalid Interpretation Code 0 - 0.4 mg/dL [facility] Interpretation and review of laboratory results Normal Invalid Interpretation Code [facility] Protein mass conc 7.2 g/dL Invalid Interpretation Code 6 - 8 g/dL [facility] Lipaseon 03-04-2018 Lipase enzyme act/vol 179 U/L High 15 - 6 5 U/L [facility] Otheron 03-04-2018 Extra Tube Hold for add-ons. Invalid Interpretation Code [facility] Comment on above: Auto resulted. Interpretation and review of laboratory results Abnormal Invalid Interpretation Code [facility] URINALYSISon 03-04-2018 Bacteria Auto Ql (U) Rare Abnormal None Se en /hpf [facility] Bilirubin Ql (U) Negative Invalid Interpretation Code Negative [facility] Clarity Refractometry automated Nom (U) Clear Invalid Interpretation Code Clear [facility] Color Auto Nom (U) Colorless Invalid Interpretation Code Colorless, Yellow [facility] Epithelial cells.squamous Auto #/area (Urine sed) 1 Invalid Interpretation Code [facility] Glucose Automated test strip mass conc (U) Negative Invalid Interpretation Code Negative mg/dL [facility] Hemoglobin Automated test strip Ql (U) Negative Invalid Interpretation Code Negative [facility] Interpretation and review of laboratory results Abnormal Invalid Interpretation Code [facility] Ketones mass conc (U) Negative Invalid Interpretation Code Negative mg/dL [facility] Leukocyte esterase Automated test strip Ql (U) Negative Invalid Interpretation Code Negative [facility] Nitrite Automated test strip Ql (U) Negative Invalid Interpretation Code Negative [facility] pH Test strip (U) 7.0 [pH] Invalid Interpretation Code [facility] Protein mass conc (U) Negative Invalid Interpretation Code Negative mg/dL [facility] RBC Auto #/area (Urine sed) 2 Invalid Interpretation Code [facility] Specific gravity Automated test strip Relative Density (U) 1.004 Low [facility] Urobilinogen Test strip Qn (U) <2.0 Invalid Interpretation Code <2.0 mg/dL [facility] WBC Auto #/area (Urine sed) <1 Invalid Interpretation Code [facility] Microscopic examinat ion is performed on all urinalysis samples and only positive findings are reported. The test for blood on the chemical analytic portion of urinalysis may also be positive due to hemoglobinuria and myoglobinuria and if red blood cells are present they are quantified by microscopic examination. Invalid Interpretation Code [facility] BMPon 08-24-2017 Anion gap 18 mmol/L Invalid Interpretation Code 10 - 20 mmol/L [facility] Bicarbonate (HCO3) 27 mmol/L Invalid Interpretation Code 21 - 32 mmol/L [facility] BUN/Creatinine Ratio 10.1 mg/mg Invalid Interpretation Code 10.0 - 20.0 [facility] Calcium 10.6 mg/dL High 8.4 - 10.2 mg/dL [facility] Chloride 101 mmol/L Invalid Interpretation Code 98 - 108 mmol/L [facility] Creatinine 0.69 mg/dL Invalid Interpretation Code 0.4 - 1.1 mg/dL [facility] eGFR (non-black) 103 mL/min/{1.73_m2} Invalid Interpretation Code >=60 [facility] eGFR (non-black) The eGFR should be u sed for monitoring renal function only and not for medication dosing. Invalid Interpretation Code [facility] Glucose mass conc 105 mg/dL High 65 - 99 mg/dL [facility] Interpretation and review of laboratory results Abnormal Invalid Interpretation Code [facility] Potassium molar conc 4.1 mmol/L Invalid Interpretation Code 3.5 - 5.1 mmol/L [facility] Sodium 142 mmol/L Invalid Interpretation Code 135 - 145 mmol/L [facility] Urea nitrogen 7 mg/dL Low 8 - 25 mg/dL [facility] CBC Auto Differentialon 08-07 Basophils Auto #/vol (Bld) 0.08 K/mcL Invalid Interpretation Code 0.00 - 0.30 [facility] Basophils/100 WBC Auto (Bld) 0.6 % Invalid Interpretation Code [facility] Eosinophils 0.05 K/mcL Invalid Interpretation Code 0.00 - 0.50 [facility] Eosinophils/100 leukocytes 0.4 % Invalid Interpretation Code [facility] Erythrocyte distribution width Auto Entitic volume (RBC) 12.2 % Invalid Interpretation Code 11.6 - 14.8 % [facility] Erythrocytes (RBC) 4.60 M/mcL Invalid Interpretation Code 4.00 - 5.20 [facility] Hematocrit (HCT) 43.4 % Invalid Interpretation Code 36 - 46 % [facility] Hemoglobin mass conc (Bld) 15.2 g/dL Invalid Interpretation Code 12 - 16 g/dL [facility] Immature granulocytes #/vol (Bld) 0.05 K/mcL Invalid Interpretation Code 0.00 - 0.30 [facility] Immature granulocytes/100 WBC (Bld) 0.40 % Invalid Interpretation Code [facility] Comment on above: The IG parameter is the percentage of metamyelocytes, myelocytes, and promyelocytes. Lymphocytes 2.40 K/mcL Invalid Interpretation Code 0.90 - 4.00 [facility] Lymphocytes/100 leukocytes 18.1 % Invalid Interpretation Code [facility] MCH 33.0 pg Invalid Interpretation Code 26 - 34 pg [facility] MCHC mass conc (RBC) 35.0 g/dL Invalid Interpretation Code 31 - 37 g/dL [facility] MCV 94.3 fL Invalid Interpretation Code 80 - 100 fL [facility] Monocytes 0.85 K/mcL Invalid Interpretation Code 0.30 - 0.90 [facility] Monocytes/100 leukocytes 6.4 % Invalid Interpretation Code [facility] Neutrophils 9.81 K/mcL High 1.70 - 7.00 [facility] Neutrophils/100 WBC Auto (Bld) 74.1 % Invalid Interpretation Code [facility] Nucleated erythrocytes 0.00 K/mcL Invalid Interpretation Code 0.00 - 0.00 [facility] Nucleated erythrocytes/100 erythrocytes 0.0 % Invalid Interpretation Code [facility] Platelet mean volume (PMV) 10.0 fL Invalid Interpretation Code 9 - 15.5 fL [facility] [facility] Platelets 242 K/mcL Invalid Interpretation Code 150 - 400 [facility] WBC (Leukocytes) 13.24 K/mcL High 4.50 - 11.00 [facility] CBC w/ Diffon 08-24-2017 Creatinine The following orders were created for panel order CBC w/ Diff. Procedure Abnormality Status --------- ------ CBC Auto Differential[[id number]] Abnormal Final result Please view results for these tests on the individual orders. Invalid Interpretation Code [facility] CT ABDOMEN PELVIS WITH IV CO NTRAST ONLYon 08-24-2017 CT ABDOMEN PELVIS WITH IV CONTRAST ONLY EXAMINATION:CT ABDOMEN PELVIS WITH IV CONTRAST ONLYHISTORY:ORDERING SYSTEM PROVIDED HISTORY: abd pain, hx pancreatitis, TECHNOLOGIST PROVIDED HISTORY: Reason for exam: abd painIllness/OtherEncounte r Type: Subsequent/Follow-upAddit ional signs and symptoms: chronic pancreatitisORDERING SYSTEM PROVIDED DIAGNOSIS CODES:Abdominal pain. History pancreatitis.COMPARISON:C T of the abdomen and pelvis 05/14/2017.TECHNIQUE:Dose reduction techniques were achieved by using automated [...] and demonstrated a prominent signal loss on [id number] images on MRI performed 09/06/2014, compatible with [...] The ovaries probably remain.5. Small left adrenal adenoma.YANELY/Jian n ID: [id number] by: PONCHO GALAVIZ on ThuAug 24, 2017 3:53:38 PM EDTTranscribed by: RON KELLOGG on ThuAug 24, 2017 4:00:38 PM EDTFinalized by: PONCHO GALAVIZ on ThuAug 24, 2017 4:03:34 PM EDT Normal [facility] Comment on above: Order Comment: Reaso [...] and demonstrated a prominent signal loss on [id number] images on MRI performed 09/06/2014, compatible with [...] probably remain. 5. Small left adrenal adenoma. [employer] Workstation ID: [id number] Invalid Interpretation Code [employer] [facility] CT Abdomen Pelvis With IV [...] and demonstrated a prominent signal loss on [id number] images on MRI performed 09/06/2014, compatible with [...] suspicious focal osseous lesions. Invalid Interpretation Code [employer] [facility] CT Abdomen Pelvis With IV [...] probably remain. 5. Small left adrenal adenoma. [employer] Workstation ID: [id number] Invalid Interpretation Code [facility] Hepatic Function Panel (LFT) on 08-24-2017 Alanine aminotransferase (ALT) 14 U/L Invalid Interpretation Code 0 - 40 U/L [facility] Albumin 4.7 g/dL Invalid Interpretation Code 3.2 - 5.2 g/dL [facility] Alkaline phosphatase (ALP) 91 U/L Invalid Interpretation Code 40 - 150 U/L [facility] Aspartate aminotransferase (AST) 17 U/L Invalid Interpretation Code 0 - 45 U/L [facility] Bilirubin (conjugated) mg/dL Invalid Interpretation Code 0 - 0.4 mg/dL [facility] Bilirubin (total) mg/dL Invalid Interpretation Code 0 - 1.3 mg/dL [facility] Interpretation and review of laboratory results Normal Invalid Interpretation Code [facility] Protein 7.4 g/dL Invalid Interpretation Code 6 - 8 g/dL [facility] Lactic Acid, Plasmaon 2017 Lactate 1.0 mmol/L Invalid Interpretation Code 0.6 - 2 mmol/L [facility] Light Blue Topon 08-24-2017 Extra Tube Hold for add-ons. Invalid Interpretation Code [facility] Comment on above: Auto resulted. Lipaseon 08-24-2017 Lipase 51 U/L Invalid Interpretation Code 15 - 65 U/L [facility] [place] Topon 08-24-2017 [place] Invalid Interpretation Code [facility] Ashley Drawon 08-24-2017 Creatinine The following orders were created for panel order Ashley Draw. Procedure Abnormality Status --------- ------ Gold Top[[id number]] Final result Light Blue Top[[id number]] Final result [place] Top[[id number]] Final result Please view results for these tests on the individual orders. Invalid Interpretation Code [facility] 08-24-2017 Bilirubin Ql (U) Negative Invalid Interpretation Code Negative [facility] Blood, Urine Negative Invalid Interpretation Code Negative [facility] Interpretation and review of laboratory results Abnormal Invalid Interpretation Code [facility] Nitrite, Urine Negative Invalid Interpretation Code Negative [facility] Squamous Epithelial 5 /hpf High 0 - 4 [facility] Transitional Epithelial <1 Invalid Interpretation Code 0 - 1 /hpf [facility] Urine, bacteria in sediment Rare Abnormal None Seen /hpf [facility] Urine, clarity Hazy Abnormal Clear [facility] Urine, color Yellow Invalid Interpretation Code Colorless, Yellow [facility] Urine, erythrocytes 1 /hpf Invalid Interpretation Code 0 - 3 [facility] Urine, glucose presence Negative Invalid Interpretation Code Negative mg/dL [facility] Urine, ketones presence Negative Invalid Interpretation Code Negative mg/dL [facility] Urine, leukocyte esterase presence Negative Invalid Interpretation Code Negative [facility] Urine, pH 7.0 [pH] Invalid Interpretation Code 5.0 - 7.0 [facility] Urine, protein Negative Invalid Interpretation Code Negative mg/dL [facility] Urine, specific gravity 1.006 1 Invalid Interpretation Code 1.005 - 1.025 [facility] Urine, urobilinogen <2.0 Invalid Interpretation Code <2.0 mg/dL [facility] WBCs, Urine 1 /hpf Invalid Interpretation Code 0 - 5 [facility] Urinalysis Microscopic examinat ion is performed on all urinalysis samples and only positive findings are reported. The test for blood on the chemical analytic portion of urinalysis may also be positive due to hemoglobinuria and myoglobinuria and if red blood cells are present they are quantified by microscopic examination. Invalid Interpretation Code [facility] BMPon 06-09-2017 Anion gap 18 mmol/L Invalid Interpretation Code 10 - 20 mmol/L [facility] Bicarbonate (HCO3) 21 mmol/L Invalid Interpretation Code 21 - 32 mmol/L [facility] BUN/Creatinine Ratio 11.0 mg/mg Invalid Interpretation Code 10.0 - 20.0 [facility] Calcium 10.2 mg/dL Invalid Interpretation Code 8.4 - 10.2 mg/dL [facility] Chloride 102 mmol/L Invalid Interpretation Code 98 - 108 mmol/L [facility] Creatinine 0.73 mg/dL Invalid Interpretation Code 0.4 - 1.1 mg/dL [facility] eGFR (non-black) The eGFR should be u sed for monitoring renal function only and not for medication dosing. Invalid Interpretation Code [facility] eGFR (non-black) 98 mL/min/{1.73_m2} Invalid Interpretation Code >=60 [facility] Glucose 80 mg/dL Invalid Interpretation Code 65 - 99 mg/dL [facility] Potassium 4.3 mmol/L Invalid Interpretation Code 3.5 - 5.1 mmol/L [facility] Sodium 137 mmol/L Invalid Interpretation Code 135 - 145 mmol/L [facility] Urea nitrogen 8 mg/dL Invalid Interpretation Code 8 - 25 mg/dL [facility] CBC Auto Differentialon 04- Basophils 0.07 K/mcL Invalid Interpretation Code 0.00 - 0.30 [facility] Basophils/100 leukocytes 0.7 % Invalid Interpretation Code [facility] Eosinophils 0.10 K/mcL Invalid Interpretation Code 0.00 - 0.50 [facility] Eosinophils/100 leukocytes 1.0 % Invalid Interpretation Code [facility] Erythrocytes (RBC) 4.75 M/mcL Invalid Interpretation Code 4.00 - 5.20 [facility] Erythrocytes (RBC) 0.00 K/mcL Invalid Interpretation Code 0.00 - 0.00 [facility] Hematocrit (HCT) 46.1 % High 36 - 46 % [facility] Hemoglobin (HGB) 16.1 g/dL High 12 - 16 g/dL [facility] IG Absolute 0.02 K/mcL Invalid Interpretation Code 0.00 - 0.30 [facility] IG Percent 0.20 % Invalid Interpretation Code [facility] Lymphocytes 1.75 K/mcL Invalid Interpretation Code 0.90 - 4.00 [facility] Lymphocytes/100 leukocytes 17.9 % Invalid Interpretation Code [facility] MCH 33.9 pg Invalid Interpretation Code 26 - 34 pg [facility] MCHC 34.9 g/dL Invalid Interpretation Code 31 - 37 g/dL [facility] MCV 97.1 fL Invalid Interpretation Code 80 - 100 fL [facility] Monocytes 0.88 K/mcL Invalid Interpretation Code 0.30 - 0.90 [facility] Monocytes/100 leukocytes 9.0 % Invalid Interpretation Code [facility] Neutrophils 6.98 K/mcL Invalid Interpretation Code 1.70 - 7.00 [facility] Neutrophils/100 leukocytes 71.2 % Invalid Interpretation Code [facility] Nucleated erythrocytes/100 erythrocytes 0.0 % Invalid Interpretation Code [facility] Platelet mean volume (PMV) 10.9 fL Invalid Interpretation Code 9 - 15.5 fL [facility] Platelets 223 K/mcL Invalid Interpretation Code 150 - 400 [facility] RDW-CA 12.8 % Invalid Interpretation Code 11.6 - 14.8 % [facility] WBC (Leukocytes) 9.80 K/mcL Invalid Interpretation Code 4.50 - 11.00 [facility] Interpretation and review of laboratory results Abnormal Invalid Interpretation Code [facility] CBC w/ Diffon 06-09-2017 Creatinine The following orders were created for panel order CBC w/ Diff. Procedure Abnormality Status --------- ------ CBC Auto Differential[[id number]] Abnormal Final result Please view results for these tests on the individual orders. Invalid Interpretation Code [facility] Hepatic Function Panel (LFT) on 06-09-2017 Alanine aminotransferase (ALT) 10 U/L Invalid Interpretation Code 0 - 40 U/L [facility] Albumin 4.4 g/dL Invalid Interpretation Code 3.2 - 5.2 g/dL [facility] Alkaline phosphatase (ALP) 89 U/L Invalid Interpretation Code 40 - 150 U/L [facility] Aspartate aminotransferase (AST) 20 U/L Invalid Interpretation Code 0 - 45 U/L [facility] Bilirubin (conjugated) mg/dL Invalid Interpretation Code 0 - 0.4 mg/dL [facility] Bilirubin (total) mg/dL Invalid Interpretation Code 0 - 1.3 mg/dL [facility] Interpretation and review of laboratory results Normal Invalid Interpretation Code [facility] Protein 7.3 g/dL Invalid Interpretation Code 6 - 8 g/dL [facility] Lipaseon 06-09-2017 Lipase 50 U/L Invalid Interpretation Code 15 - 65 U/L [facility] Ashley Drawon 06-09-2017 Creatinine The following orders were created for panel order Ashley Draw. Procedure Abnormality Status --------- ------ Urine Container[[id number]] Final result Please view results for these tests on the individual orders. Invalid Interpretation Code [facility] Urinalysison 06-09-2017 Bilirubin, Urine Negative Invalid Interpretation Code Negative [facility] Blood, Urine Negative Invalid Interpretation Code Negative [facility] Calcium Many Abnormal None Seen /hpf [facility] Mucus, Urine Rare Invalid Interpretation Code None Seen, Rare /lpf [facility] Nitrite, Urine Negative Invalid Interpretation Code Negative [facility] RBCs, Urine 1 /hpf Invalid Interpretation Code 0 - 3 [facility] Squamous Epithelial 4 /hpf Invalid Interpretation Code 0 - 4 [facility] Urine, bacteria in sediment None Seen Invalid Interpretation Code None Seen /hpf [facility] Urine, clarity Cloudy Abnormal Clear [facility] Urine, color Yellow Invalid Interpretation Code Colorless, Yellow [facility] Urine, glucose presence Negative Invalid Interpretation Code Negative mg/dL [facility] Urine, ketones presence Trace Abnormal Negative mg/dL [facility] Urine, leukocyte esterase presence Negative Invalid Interpretation Code Negative [facility] Urine, pH 5.0 [pH] Invalid Interpretation Code 5.0 - 7.0 [facility] Urine, protein Negative Invalid Interpretation Code Negative mg/dL [facility] Urine, specific gravity 1.024 1 Invalid Interpretation Code 1.005 - 1.025 [facility] Urine, urobilinogen 2.0 mg/dL Abnormal <2.0 [facility] WBCs, Urine 1 /hpf Invalid Interpretation Code 0 - 5 [facility] Urinalysis Microscopic examinat ion is performed on all urinalysis samples and only positive findings are reported. The test for blood on the chemical analytic portion of urinalysis may also be positive due to hemoglobinuria and myoglobinuria and if red blood cells are present they are quantified by microscopic examination. Invalid Interpretation Code [facility] Urine Containeron 06-09-2017 Urine Container Invalid Interpretation Code [facility] CBCon 05-15-2017 Erythrocytes (RBC) 3.76 M/mcL Low 4.00 - 5.20 [facility] Erythrocytes (RBC) 0.00 K/mcL Invalid Interpretation Code 0.00 - 0.00 [facility] Hematocrit (HCT) 37.1 % Invalid Interpretation Code 36 - 46 % [facility] Hemoglobin (HGB) 12.4 g/dL Invalid Interpretation Code 12 - 16 g/dL [facility] MCH 33.0 pg Invalid Interpretation Code 26 - 34 pg [facility] MCHC 33.4 g/dL Invalid Interpretation Code 31 - 37 g/dL [facility] MCV 98.7 fL Invalid Interpretation Code 80 - 100 fL [facility] Nucleated erythrocytes/100 erythrocytes 0.0 % Invalid Interpretation Code [facility] Platelet mean volume (PMV) 9.9 fL Invalid Interpretation Code 9 - 15.5 fL [facility] Platelets 197 K/mcL Invalid Interpretation Code 150 - 400 [facility] RDW-CA 12.6 % Invalid Interpretation Code 11.6 - 14.8 % [facility] WBC (Leukocytes) 7.55 K/mcL Invalid Interpretation Code 4.50 - 11.00 [facility] Comprehensive Metabolic Pane nimesh 05-15-2017 Alanine aminotransferase (ALT) 9 U/L Invalid Interpretation Code 0 - 40 U/L [facility] Albumin 3.3 g/dL Invalid Interpretation Code 3.2 - 5.2 g/dL [facility] Alkaline phosphatase (ALP) 73 U/L Invalid Interpretation Code 40 - 150 U/L [facility] Anion gap 15 mmol/L Invalid Interpretation Code 10 - 20 mmol/L [facility] Aspartate aminotransferase (AST) 13 U/L Invalid Interpretation Code 0 - 45 U/L [facility] Bicarbonate (HCO3) 23 mmol/L Invalid Interpretation Code 21 - 32 mmol/L [facility] Bilirubin (total) 0.2 mg/dL Invalid Interpretation Code 0 - 1.3 mg/dL [facility] BUN/Creatinine Ratio 9.4 mg/mg Low 10.0 - 20.0 [facility] Calcium 8.4 mg/dL Invalid Interpretation Code 8.4 - 10.2 mg/dL [facility] Chloride 108 mmol/L Invalid Interpretation Code 98 - 108 mmol/L [facility] Creatinine 0.64 mg/dL Invalid Interpretation Code 0.4 - 1.1 mg/dL [facility] eGFR (non-black) The eGFR should be u sed for monitoring renal function only and not for medication dosing. Invalid Interpretation Code [facility] eGFR (non-black) 107 mL/min/{1.73_m2} Invalid Interpretation Code >=60 [facility] Glucose 91 mg/dL Invalid Interpretation Code 65 - 99 mg/dL [facility] Potassium 4.0 mmol/L Invalid Interpretation Code 3.5 - 5.1 mmol/L [facility] Protein 5.3 g/dL Low 6 - 8 g/dL [facility] Sodium 142 mmol/L Invalid Interpretation Code 135 - 145 mmol/L [facility] Urea nitrogen 6 mg/dL Low 8 - 25 mg/dL [facility] Lipaseon 05-15-2017 Interpretation and review of laboratory results Normal Invalid Interpretation Code [facility] Lipase 31 U/L Invalid Interpretation Code 15 - 65 U/L [facility] Lipid Panelon 05-15-2017 Cholesterol 193 mg/dL Invalid Interpretation Code 100 - 199 mg/dL [facility] Cholesterol to HDL Ratio 7.1 {ratio} Invalid Interpretation Code [facility] HDL Cholesterol 27 mg/dL Low 40 - 59 mg/dL [facility] HDL Cholesterol 166 mg/dL Invalid Interpretation Code [facility] Interpretation and review of laboratory results Abnormal Invalid Interpretation Code [facility] LDL Cholesterol 108 mg/dL Invalid Interpretation Code 10 - 130 mg/dL [facility] Triglyceride 291 mg/dL High 30 - 150 mg/dL [facility] BMPon 05-14-2017 Anion gap 18 mmol/L Invalid Interpretation Code 10 - 20 mmol/L [facility] Bicarbonate (HCO3) 25 mmol/L Invalid Interpretation Code 21 - 32 mmol/L [facility] BUN/Creatinine Ratio 11.8 mg/mg Invalid Interpretation Code 10.0 - 20.0 [facility] Calcium 10.7 mg/dL High 8.4 - 10.2 mg/dL [facility] Chloride 102 mmol/L Invalid Interpretation Code 98 - 108 mmol/L [facility] Creatinine 0.68 mg/dL Invalid Interpretation Code 0.4 - 1.1 mg/dL [facility] eGFR (non-black) The eGFR should be u sed for monitoring renal function only and not for medication dosing. Invalid Interpretation Code [facility] eGFR (non-black) 105 mL/min/{1.73_m2} Invalid Interpretation Code >=60 [facility] Glucose 86 mg/dL Invalid Interpretation Code 65 - 99 mg/dL [facility] Potassium 4.0 mmol/L Invalid Interpretation Code 3.5 - 5.1 mmol/L [facility] Sodium 141 mmol/L Invalid Interpretation Code 135 - 145 mmol/L [facility] Urea nitrogen 8 mg/dL Invalid Interpretation Code 8 - 25 mg/dL [facility] CBC Auto Differentialon Basophils 0.09 K/mcL Invalid Interpretation Code 0.00 - 0.30 [facility] Basophils/100 leukocytes 0.8 % Invalid Interpretation Code [facility] Eosinophils 0.08 K/mcL Invalid Interpretation Code 0.00 - 0.50 [facility] Eosinophils/100 leukocytes 0.7 % Invalid Interpretation Code [facility] Erythrocytes (RBC) 0.00 K/mcL Invalid Interpretation Code 0.00 - 0.00 [facility] Erythrocytes (RBC) 4.96 M/mcL Invalid Interpretation Code 4.00 - 5.20 [facility] Hematocrit (HCT) 48.5 % High 36 - 46 % [facility] Hemoglobin (HGB) 16.6 g/dL High 12 - 16 g/dL [facility] IG Absolute 0.04 K/mcL Invalid Interpretation Code 0.00 - 0.30 [facility] IG Percent 0.40 % Invalid Interpretation Code [facility] Interpretation and review of laboratory results Abnormal Invalid Interpretation Code [facility] Lymphocytes 1.89 K/mcL Invalid Interpretation Code 0.90 - 4.00 [facility] Lymphocytes/100 leukocytes 17.7 % Invalid Interpretation Code [facility] MCH 33.5 pg Invalid Interpretation Code 26 - 34 pg [facility] MCHC 34.2 g/dL Invalid Interpretation Code 31 - 37 g/dL [facility] MCV 97.8 fL Invalid Interpretation Code 80 - 100 fL [facility] Monocytes 0.74 K/mcL Invalid Interpretation Code 0.30 - 0.90 [facility] Monocytes/100 leukocytes 6.9 % Invalid Interpretation Code [facility] Neutrophils 7.86 K/mcL High 1.70 - 7.00 [facility] Neutrophils/100 leukocytes 73.5 % Invalid Interpretation Code [facility] Nucleated erythrocytes/100 erythrocytes 0.0 % Invalid Interpretation Code [facility] Platelet mean volume (PMV) 9.8 fL Invalid Interpretation Code 9 - 15.5 fL [facility] Platelets 275 K/mcL Invalid Interpretation Code 150 - 400 [facility] RDW-CA 12.8 % Invalid Interpretation Code 11.6 - 14.8 % [facility] WBC (Leukocytes) 10.70 K/mcL Invalid Interpretation Code 4.50 - 11.00 [facility] CBC w/ Diffon 05-14-2017 Creatinine The following orders were created for panel order CBC w/ Diff. Procedure Abnormality Status --------- ------ CBC Auto Differential[[id number]] Abnormal Final result Please view results for these tests on the individual orders. Invalid Interpretation Code [facility] [place] ABDOMEN PELVIS WITH IV CO NTRAST ONLYon 05-14-2017 CT ABDOMEN PELVIS WITH IV CONTRAST ONLY EXAMINATION: CT ABDOMEN WITH CONTRAST AND CT PELVIS WITH CONTRAST, 05/14/2017:HISTORY:abd pain history of pancreatitis prior abdominal surgeries right lower quadrant pain as well.COMPARISON:Abdominal CT scan, 07/04/2016.TECHNIQUE:IV contrast enhanced axial CT imaging of the [...] appendix in the left lower pelvis.Workstation ID: [id number] by: ERROL ANN on ThuMay 14, 2017 4:08:10 PM ESTTranscribed by: ERROL ANN on ThuMay 14, 2017 4:08:10 PM ESTFinalized by: ERROL ANN on ThuMay 14, 2017 4:08:10 PM EST Normal [facility] Comment on above: Order Comment: Reaso [...] at L1-L2 and L4-L5. Invalid Interpretation Code [employer] [facility] CT Abdomen Pelvis With IV Contrast Only Interface, Rad In [employer] Speechq - 05/14/2017 4:10 PM EST EXAMINATION: CT [...] in the left lower pelvis. Workstation ID: [id number] Invalid Interpretation Code [employer] [facility] CT Abdomen Pelvis With IV [...] in the left lower pelvis. Workstation ID: [id number] Invalid Interpretation Code [employer] [facility] Ruff Topon 05-14-2017 Extra Tube Hold for add-ons. Invalid Interpretation Code [facility] Hepatic Function Panel (LFT) on 05-14-2017 Alanine aminotransferase (ALT) 13 U/L Invalid Interpretation Code 0 - 40 U/L [facility] Albumin 4.8 g/dL Invalid Interpretation Code 3.2 - 5.2 g/dL [facility] Alkaline phosphatase (ALP) 102 U/L Invalid Interpretation Code 40 - 150 U/L [facility] Aspartate aminotransferase (AST) 20 U/L Invalid Interpretation Code 0 - 45 U/L [facility] Bilirubin (conjugated) mg/dL Invalid Interpretation Code 0 - 0.4 mg/dL [facility] Bilirubin (total) 0.2 mg/dL Invalid Interpretation Code 0 - 1.3 mg/dL [facility] Interpretation and review of laboratory results Normal Invalid Interpretation Code [facility] Protein 7.9 g/dL Invalid Interpretation Code 6 - 8 g/dL [facility] Lipaseon 05-14-2017 Lipase 137 U/L High 15 - 65 U/L [facility] [place] Topon 05-14-2017 [place] Top Invalid Interpretation Code [facility] Ashley Drawon 05-14-2017 Creatinine The following orders were created for panel order Ashley Draw. Procedure Abnormality Status --------- ------ Gold Top[[id number]] Final result Light Blue Top[[id number]] Final result Ruff Top[[id number]] Final result [place] Top[[id number]] Final result Please view results for these tests on the individual orders. Invalid Interpretation Code [facility] 05-14-2017 Bilirubin, Urine Negative Invalid Interpretation Code Negative [facility] Blood, Urine Negative Invalid Interpretation Code Negative [facility] Interpretation and review of laboratory results Abnormal Invalid Interpretation Code [facility] Mucus, Urine Rare Invalid Interpretation Code None Seen, Rare /lpf [facility] Nitrite, Urine Negative Invalid Interpretation Code Negative [facility] RBCs, Urine 2 /hpf Invalid Interpretation Code 0 - 3 [facility] Squamous Epithelial 3 /hpf Invalid Interpretation Code 0 - 4 [facility] Urine, bacteria in sediment Rare Abnormal None Seen /hpf [facility] Urine, clarity Clear Invalid Interpretation Code Clear [facility] Urine, color Yellow Invalid Interpretation Code Colorless, Yellow [facility] Urine, glucose presence Negative Invalid Interpretation Code Negative mg/dL [facility] Urine, ketones presence Negative Invalid Interpretation Code Negative mg/dL [facility] Urine, leukocyte esterase presence Negative Invalid Interpretation Code Negative [facility] Urine, pH 5.0 [pH] Invalid Interpretation Code 5.0 - 7.0 [facility] Urine, protein Negative Invalid Interpretation Code Negative mg/dL [facility] Urine, specific gravity 1.006 1 Invalid Interpretation Code 1.005 - 1.025 [facility] Urine, urobilinogen <2.0 Invalid Interpretation Code <2.0 mg/dL [facility] WBCs, Urine 1 /hpf Invalid Interpretation Code 0 - 5 [facility] Urinalysis Microscopic examinat ion is performed on all urinalysis samples and only positive findings are reported. The test for blood on the chemical analytic portion of urinalysis may also be positive due to hemoglobinuria and myoglobinuria and if red blood cells are present they are quantified by microscopic examination. Invalid Interpretation Code [facility] Vital Signs Date Time Vital Sign Value Performing Clinician Facility 05-11-2023 09:01-0500 Body height 157.5 cm Sabrina Dee MD, MPH Work Phone: [facility] 05-11-2023 09:01-0500 Body mass index (BMI) [Ratio] 21 kg/m2 Sabrina Dee MD, MPH Work Phone: [facility] 05-11-2023 09:01-0500 Body weight 52.07 kg Sabrina Dee MD, MPH Work Phone: [facility] 05-11-2023 09:01-0500 Diastolic blood pressure 48 mm[Hg] Sabrina Dee MD, MPH Work Phone: [facility] 05-11-2023 09:01-0500 Heart rate 107 /min Sabrina Dee MD, MPH Work Phone: [facility] 05-11-2023 09:01-0500 SaO2% (BldA) [Mass fraction] 97 % Sabrina Dee MD, MPH Work Phone: [facility] 05-11-2023 09:01-0500 Systolic blood pressure 110 mm[Hg] Sabrina Dee MD, MPH Work Phone: [facility] 04-18-2023 17:39-0500 Diastolic blood pressure 79 mm[Hg] [facility] 04-18-2023 17:39-0500 Heart rate 114 /min [facility] 04-18-2023 17:39-0500 Respiratory rate 16 /min [facility] 04-18-2023 17:39-0500 SaO2% (BldA) [Mass fraction] 98 % [facility] 04-18-2023 17:39-0500 Systolic blood pressure 168 mm[Hg] [facility] 04-18-2023 15:29-0500 Body height 157.48 cm [facility] 04-18-2023 15:29-0500 Body temperature 99.3 [degF] [facility] 04-18-2023 15:29-0500 Body weight 51.25 kg [facility] 04-11-2023 23:50-0500 Diastolic blood pressure 82 mm[Hg] [facility] 04-11-2023 23:50-0500 Heart rate 106 /min [facility] 04-11-2023 23:50-0500 SaO2% (BldA) [Mass fraction] 97 % [facility] 04-11-2023 23:50-0500 Systolic blood pressure 151 mm[Hg] [facility] 04-11-2023 22:25-0500 Respiratory rate 18 /min [facility] 04-11-2023 21:20-0500 Body height 157.48 cm [facility] 04-11-2023 21:20-0500 Body temperature 97.2 [degF] [facility] 04-11-2023 21:20-0500 Body weight 52 kg [facility] 04-02-2023 19:20-0500 Diastolic blood pressure 74 mm[Hg] [facility] 04-02-2023 19:20-0500 Heart rate 91 /min [facility] 04-02-2023 19:20-0500 Respiratory rate 18 /min [facility] 04-02-2023 19:20-0500 SaO2% (BldA) [Mass fraction] 96 % [facility] 04-02-2023 19:20-0500 Systolic blood pressure 137 mm[Hg] [facility] 04-02-2023 13:45-0500 Body height 157.48 cm [facility] 04-02-2023 13:45-0500 Body temperature 97.6 [degF] [facility] 04-02-2023 13:45-0500 Body weight 54 kg [facility] 11-09-2022 16:30-0400 Diastolic blood pressure 81 mm[Hg] [facility] 11-09-2022 16:30-0400 Heart rate 78 /min [facility] 11-09-2022 16:30-0400 Respiratory rate 18 /min [facility] 11-09-2022 16:30-0400 SaO2% (BldA) [Mass fraction] 99 % [facility] 11-09-2022 16:30-0400 Systolic blood pressure 141 mm[Hg] [facility] 11-09-2022 13:47-0400 Body height 160.02 cm [facility] 11-09-2022 13:47-0400 Body temperature 98.2 [degF] [facility] 11-09-2022 13:47-0400 Body weight 54.2 kg [facility] 08-12-2022 13:15-0400 Diastolic blood pressure 68 mm[Hg] Sabrina Dee MD, MPH Work Phone: [facility] 08-12-2022 13:15-0400 Heart rate 67 /min Sabrina Dee MD, MPH Work Phone: [facility] 08-12-2022 13:15-0400 Respiratory rate 22 /min Sabrina Dee MD, MPH Work Phone: [facility] 08-12-2022 13:15-0400 SaO2% (BldA) [Mass fraction] 99 % Sabrina Dee MD, MPH Work Phone: [facility] 08-12-2022 13:15-0400 Systolic blood pressure 142 mm[Hg] Sabrina Dee MD, MPH Work Phone: [facility] 08-12-2022 11:45-0400 Body temperature 97.81 [degF] Sabrina Dee MD, MPH Work Phone: [phone] [address] 08-12-2022 10:34-0400 Body height 157.5 cm Sabrina Dee MD, MPH Work Phone: [phone])[phone] [address] 06-16-2022 10:52-0400 Body mass index (BMI) [Ratio] 23.41 kg/m2 Sabrina Dee MD, MPH Work Phone: [phone] [address] 06-16-2022 10:52-0400 Body weight 58.06 kg Sabrina Dee MD, MPH Work Phone: [phone](656)[phone] [address] 06-16-2022 10:52-0400 Diastolic blood pressure 68 mm[Hg] Sabrina Dee MD, MPH Work Phone: [phone])[phone] [address] 06-16-2022 10:52-0400 Heart rate 83 /min Sabrina Dee MD, MPH Work Phone: [phone] [address] 06-16-2022 10:52-0400 SaO2% (BldA) [Mass fraction] 98 % Sabrina Dee MD, MPH Work Phone: 7(396)[phone] [place] [address] 06-16-2022 10:52-0400 Systolic blood pressure 122 mm[Hg] Sabrina Dee MD, MPH Work Phone: [phone] [address] 03-22-2022 16:51-0500 Diastolic blood pressure 61 mm[Hg] [facility] 03-22-2022 16:51-0500 Heart rate 98 /min [facility] 03-22-2022 16:51-0500 Respiratory rate 20 /min [facility] 03-22-2022 16:51-0500 SaO2% (BldA) [Mass fraction] 98 % [facility] 03-22-2022 16:51-0500 Systolic blood pressure 149 mm[Hg] [facility] 03-22-2022 14:59-0500 Body height 157.48 cm [facility] 03-22-2022 14:59-0500 Body temperature 97.9 [degF] [facility] 03-22-2022 14:59-0500 Body weight 56 kg [facility] 12-16-2021 11:53-0400 Body height 157.5 cm Sabrina Dee MD, MPH Work Phone: [facility] 12-16-2021 11:53-0400 Body mass index (BMI) [Ratio] 22.5 kg/m2 Sabrina Dee MD, MPH Work Phone: [facility] 12-16-2021 11:53-0400 Body weight 55.79 kg Sabrina Dee MD, MPH Work Phone: [facility] 12-16-2021 11:53-0400 Diastolic blood pressure 72 mm[Hg] Sabrina Dee MD, MPH Work Phone: [facility] 12-16-2021 11:53-0400 Heart rate 80 /min Sabrina Dee MD, MPH Work Phone: [facility] 12-16-2021 11:53-0400 SaO2% (BldA) [Mass fraction] 98 % Sabrina Dee MD, MPH Work Phone: [facility] 12-16-2021 11:53-0400 Systolic blood pressure 118 mm[Hg] Sabrina Dee MD, MPH Work Phone: [facility] 10-09-2021 20:00-0400 Body temperature 98.3 [degF] [facility] 10-09-2021 20:00-0400 Diastolic blood pressure 68 mm[Hg] [facility] 10-09-2021 20:00-0400 Heart rate 86 /min [facility] 10-09-2021 20:00-0400 Respiratory rate 20 /min [facility] 10-09-2021 20:00-0400 SaO2% (BldA) [Mass fraction] 100 % [facility] 10-09-2021 20:00-0400 Systolic blood pressure 110 mm[Hg] [facility] 10-09-2021 14:19-0400 Body height 157.48 cm [facility] 10-09-2021 14:19-0400 Body weight 56.69 kg [facility] 10-04-2021 19:00-0400 Diastolic blood pressure 66 mm[Hg] [facility] 10-04-2021 19:00-0400 Heart rate 72 /min [facility] 10-04-2021 19:00-0400 Respiratory rate 16 /min [facility] 10-04-2021 19:00-0400 SaO2% (BldA) [Mass fraction] 96 % [facility] 10-04-2021 19:00-0400 Systolic blood pressure 110 mm[Hg] [facility] 10-04-2021 15:16-0400 Body temperature 97.9 [degF] [facility] 10-04-2021 15:15-0400 Body height 157.48 cm [facility] 10-04-2021 15:15-0400 Body weight 54.5 kg [facility] 09-25-2021 19:58-0400 Heart rate 82 /min [facility] 09-25-2021 18:04-0400 Body temperature 98.1 [degF] [facility] 09-25-2021 18:00-0400 Body height 157.48 cm [facility] 09-25-2021 18:00-0400 Body weight 55.5 kg [facility] 09-25-2021 18:00-0400 Diastolic blood pressure 107 mm[Hg] [facility] 09-25-2021 18:00-0400 Respiratory rate 18 /min [facility] 09-25-2021 18:00-0400 SaO2% (BldA) [Mass fraction] 98 % [facility] 09-25-2021 18:00-0400 Systolic blood pressure 141 mm[Hg] [facility] 08-11-2021 18:12-0400 Heart rate 86 /min [facility] 08-11-2021 18:00-0400 Diastolic blood pressure 69 mm[Hg] [facility] 08-11-2021 18:00-0400 Respiratory rate 20 /min [facility] 08-11-2021 18:00-0400 SaO2% (BldA) [Mass fraction] 98 % [facility] 08-11-2021 18:00-0400 Systolic blood pressure 114 mm[Hg] [facility] 08-11-2021 16:06-0400 Body height 170.18 cm [facility] 08-11-2021 16:06-0400 Body mass index (BMI) [Ratio] 19.6 kg/m2 [facility] 08-11-2021 16:06-0400 Body temperature 97.9 [degF] [facility] 08-11-2021 16:06-0400 Body weight 57 kg [facility] 03-19-2021 14:30-0500 Body height 157.48 cm Marya Ginty Other [facility] Other 03-19-2021 14:30-0500 Body mass index (BMI) [Ratio] 24.69 kg/m2 Marya Ginty Other [facility] Other 03-19-2021 14:30-0500 Body temperature 96 [degF] Marya Ginty Other [facility] Other 03-19-2021 14:30-0500 Body weight 61.24 kg Marya Ginty Other [facility] Other 03-19-2021 14:30-0500 Respiratory rate 63 /min Marya Ginty Other [facility] Other 03-19-2021 14:30-0500 SaO2% (BldA) [Mass fraction] 97 % Marya Ginty Other [facility] Other 03-26-2020 21:05-0500 Pulse Oximetry 100 % [facility] [place] 03-26-2020 21:01-0500 BP Diastolic 68 mm[Hg] [facility] [place] 03-26-2020 21:01-0500 BP Systolic 152 mm[Hg] [place], [place] 03-26-2020 17:32-0500 BMI (Body Mass Index) 22.86 kg/m2 [place] 03-26-2020 17:32-0500 Body weight 56.7 kg [place] 03-26-2020 17:32-0500 Height 157.5 cm [place] 03-26-2020 17:32-0500 Pulse (Heart Rate) 90 /min [place] 03-26-2020 17:32-0500 Respiratory Rate 18 /min [facility] [place] 03-26-2020 12:39-0500 Body Temperature 98.71 [degF] [facility] [place] 08-25-2019 08:30-0400 Body Temperature 98.01 [degF] Rajeev [facility] [place] 08-25-2019 08:30-0400 BP Diastolic 75 mm[Hg] Rajeev [facility] [place] 08-25-2019 08:30-0400 BP Systolic 117 mm[Hg] Rajeev Alejandrina [facility] , [place] 08-25-2019 08:30-0400 Pulse (Heart Rate) 84 /min Rajeev Tinoco [facility] 08-25-2019 08:30-0400 Pulse Oximetry 97 % Rajeev iTnoco [facility] , [place] 08-25-2019 08:30-0400 Respiratory Rate 16 /min [facility] [place] 08-25-2019 05:30-0400 BMI (Body Mass Index) 25.88 kg/m2 Rajeev [facility] 08-25-2019 05:30-0400 Body weight 64.18 kg Rajeev [place], [place] 08-22-2019 16:00-0400 Height 157.5 cm Rajeev [place] 03-04-2018 13:09-0500 BP Diastolic 69 mm[Hg] [facility] 03-04-2018 13:09-0500 BP Systolic 108 mm[Hg] [facility] 03-04-2018 13:09-0500 Pulse (Heart Rate) 79 /min [facility] 03-04-2018 13:09-0500 Pulse Oximetry 99 % [facility] 03-04-2018 13:09-0500 Respiratory Rate 16 /min [facility] 03-04-2018 11:01-0500 BMI (Body Mass Index) 22.86 kg/m2 [facility] 03-04-2018 11:01-0500 Body Temperature 98.6 [degF] [facility] 03-04-2018 11:01-0500 Height 157.5 cm [facility] 03-04-2018 11:01-0500 Weight 56.7 kg [facility] 08-24-2017 20:58-0400 BP Diastolic 64 mm[Hg] Errol [facility] 08-24-2017 20:58-0400 BP Systolic 126 mm[Hg] Errol [facility] 08-24-2017 20:58-0400 Pulse (Heart Rate) 67 /min Errol [facility] 08-24-2017 20:58-0400 Pulse Oximetry 98 % [facility]rol [facility] 08-24-2017 20:58-0400 Respiratory Rate 18 /min [facility] 08-24-2017 13:41-0400 BMI (Body Mass Index) 21.58 kg/m2 [facility]rol [facility] 08-24-2017 13:41-0400 Body Temperature 98.29 [degF] [facility] 08-24-2017 13:41-0400 Height 157.5 cm Errol [facility] 08-24-2017 13:41-0400 Weight 53.52 kg Errol [facility] 06-09-2017 09:32-0400 BP Diastolic 73 mm[Hg] [facility] 06-09-2017 09:32-0400 BP Systolic 106 mm[Hg] [facility] 06-09-2017 09:32-0400 Pulse (Heart Rate) 86 /min [facility] 06-09-2017 09:32-0400 Pulse Oximetry 99 % [facility] 06-09-2017 09:32-0400 Respiratory Rate 16 /min [facility] 06-09-2017 07:20-0400 BMI (Body Mass Index) 21.87 kg/m2 [facility] 06-09-2017 07:20-0400 Body Temperature 98.4 [degF] [facility] 06-09-2017 07:20-0400 Height 157.5 cm [facility] 06-09-2017 07:20-0400 Weight 54.23 kg [facility] 05-15-2017 08:11-0500 Body Temperature 98.01 [degF] David Paige [facility] 05-15-2017 08:11-0500 BP Diastolic 69 mm[Hg] [facility] 05-15-2017 08:11-0500 BP Systolic 116 mm[Hg] [facility] 05-15-2017 08:11-0500 Pulse (Heart Rate) 76 /min [facility] 05-15-2017 08:11-0500 Pulse Oximetry 95 % [facility] 05-15-2017 08:11-0500 Respiratory Rate 15 /min [facility] 05-14-2017 12:58-0500 BMI (Body Mass Index) 21.95 kg/m2 David Paige [facility] 05-14-2017 12:58-0500 Height 157.5 cm David Paige [facility] 05-14-2017 12:58-0500 Weight 54.43 kg David Paige [facility] Encounters Encounter Date Encounter Type Care Provider Facility Start: 05-22-2023 Telephone encounter [facility] Start: 05-11-2023 Chart abstracting Scanning Pro vider External [facility] Start: 05-11-2023 ambulatory SABRINA Ferreira cility:[facility] Start: 05-11-2023 End: 05-11-2023 Office outpatient visit 40 minutes Sabrina Dee MD, MPH Work Phone: [facility] [place] Comment on above: 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); Encounter for screening for malignant neoplasm of colon; Other osteoporosis without current pathological fracture; Epigastric pain; Smoking; Gastroesophageal reflux disease without esophagitis Start: 04-18-2023 End: 04-18-2023 Emergency department patient visit NON STAFF Facility:[facility] Start: 04-18-2023 End: 04-18-2023 Emergency department patient visit [facility] Work Phone: Start: 04-16-2023 Telephone encounter [facility] Start: 04-11-2023 End: 04-12-2023 Emergency department patient visit NON STAFF Facility:[facility] Start: 04-11-2023 End: 04-12-2023 Emergency department patient visit [facility] Work Phone: Start: 04-11-2023 End: 04-11-2023 Emergency [facility] Start: 04-11-2023 End: 04-12-2023 Emergency department patient visit TABITHA NEWELL [facility] Start: 04-02-2023 End: 04-02-2023 Emergency department patient visit Nicole Posadas Facility:[facility] Start: 04-02-2023 End: 04-02-2023 Emergency department patient visit [facility] Work Phone: Start: 03-27-2023 End: 03-28-2023 Emergency department patient visit [facility] Start: 03-27-2023 End: 03-27-2023 Emergency department patient visit [facility] Start: 11-09-2022 End: 11-09-2022 Emergency department patient visit NON STAFF Facility:[facility] Start: 11-09-2022 End: 11-09-2022 Emergency department patient visit [facility] Work Phone: Start: 08-12-2022 ambulatory SABRINA hamilton:[facility] Start: 08-12-2022 End: 08-12-2022 Subsequent hospital visit by physician Sabrina Dee MD, MPH Work Phone: [facility] Start: 06-16-2022 ambulatory SABRINA Ferreira [facility] Start: 06-16-2022 End: 06-16-2022 Office outpatient visit 40 minutes Sabrina Dee MD, MPH Work Phone: [facility] [place] Comment on above: Osteoporosis without current pathological fracture, unspecified osteoporosis type (Primary Dx); Alcohol-induced chronic pancreatitis Start: 06-13-2022 End: 06-13-2022 ambulatory ARIC ARCINIEGA . Facility:[facility] Start: 03-29-2022 End: 03-29-2022 ambulatory ELENITA ROLLINS . Facility:[facility] Start: 03-22-2022 End: 03-22-2022 Emergency department patient visit [facility] Work Phone: Start: 03-19-2022 End: 03-19-2022 ambulatory MONIK PARKINSON . Facility:[facility] Start: 01-28-2022 End: 01-28-2022 Subsequent hospital visit by physician Sabrina Dee MD, MPH Work Phone: [facility] Start: 01-27-2022 End: 01-27-2022 Subsequent hospital visit by physician Sabrina Dee MD, MPH Work Phone: [facility] [place] Comment on above: Arrived Start: 01-15-2022 End: 01-15-[address] HELLEN KITCHEN . Facility:[facility] Start: 12-16-2021 End: 12-16-2021 Office outpatient visit 25 minutes Sabrina Dee MD, MPH Work Phone: [facility] [place] Comment on above: Recurrent acute panc reatitis (Primary Dx); History of smoking 25-50 pack years; Alcohol-induced chronic pancreatitis; Epigastric pain; Encounter for screening colonoscopy Start: 12-13-2021 End: 12-14-2021 ambulatory NICK COY Facility:[facility] Start: 12-05-2021 End: 12-05-[address] RAJEEV KELLOGG Facility:[facility] Start: 10-11-2021 End: 10-12-[address] RAJEEV KELLOGG Facility:[facility] Start: 10-04-2021 End: 10-04-2021 Emergency department patient visit [facility] Start: 09-30-2021 End: 09-30-2021 ambulatory NAT MAXWELL . Facility:[facility] Start: 09-25-2021 End: 09-25-2021 [facility] [facility] Start: 09-17-2021 End: 09-17-[address] RAJEEV KELLOGG Facility:H1 Start: 08-26-2021 End: 08-26-2021 ambulatory NICK COY Facility:H1 Start: 08-22-2021 End: 08-22-[address] TRI HANSON Facility:H1 Start: 08-13-2021 End: 08-13-2021 ambulatory AGUSTIN MADRIGAL Facility:H1 Start: 08-11-2021 End: 08-11-2021 Emergency department patient visit [facility] Start: 07-31-2021 End: 07-31-2021 ambulatory YANNI FRASER Facility:H1 Start: 07-19-2021 End: 07-19-2021 ambulatory LYNNE PERDOMO Facility:H1 Start: 03-19-2021 End: 03-19-2021 ambulatory Marya Almonte Other [facility] Other Start: 03-19-2021 Office outpatient visit 15 minutes Marya Almonte [facility] Start: 05-22-2020 End: 05-22-2020 Orders Only Izabela Grant Work Phone: [facility] Start: 03-26-2020 Emergency department patient visit [facility] Start: 03-26-2020 End: 03-26-2020 Emergency department patient visit [facility] ED Comment on above: Acute biliary pancre atitis, unspecified complication status (Primary Dx) Start: 08-22-2019 End: 08-25-2019 Evaluation and management of inpatient [facility] Start: 08-22-2019 End: 08-25-2019 Evaluation and management of inpatient Rajeev Rudy [facility] Work Phone: [facility] Comment on above: Acute pancreatitis, unspecified complication status, unspecified pancreatitis type (Primary Dx); Pain of upper abdomen Start: 03-08-2018 End: 03-09-2018 Evaluation and management of inpatient [facility] Start: 03-04-2018 End: 03-04-2018 Patient encounter procedure [facility] Start: 03-04-2018 End: 03-04-2018 Emergency department patient visit HeatherLandy Nguyen Work Phone: [phone] [place] [address] Emergency Department Comment on above: Acute on chronic see creatitis (HCC) (Primary Dx) Start: 08-24-2017 End: 08-24-2017 Emergency department patient visit [facility] Start: 08-24-2017 End: 08-24-2017 Emergency department patient visit Errol Walton Work Phone: [facility] Start: 06-09-2017 End: 06-09-2017 Emergency department patient visit [facility] Start: 06-09-2017 End: 06-09-2017 Emergency department patient visit Joana Mendes Work Phone: [facility] Start: 05-14-2017 End: 05-15-2017 Patient encounter procedure [facility] Start: 05-14-2017 End: 05-15-2017 Emergency department patient visit David Gibson Work Phone: [facility] Medical Observation Procedures Date Procedure Procedure Detail Performing Clinician Start: 04-18-2023 CT of abdomen and pe lvis without contrast Start: 04-11-2023 Computed tomography of abdomen and pelvis with contrast Start: 04-02-2023 Computed tomography of abdomen and [...] TINOCO Start: 08-22-2019 NOTIFY PHYSICIAN (SPECIFY) RAJEEV SAWANTERS Start: 08-22-2019 PULSE OXIMETRY SPOT CHECK RAJEEV ALEJANDRINA Start: 08-22-2019 REASON FOR NO MECHAN ICAL VTE PROPHYLAXIS RAJEEV TINOCO Start: 08-22-2019 TELEMETRY MONITORING MARINO TINOCO Start: 08-22-2019 TOBACCO CESSATION EDUCATION RAJEEV ALEJANDRINA Start: 08-22-2019 VITAL SIGNS RAJEEV ALEJANDRINA Start: 08-22-2019 FULL CODE RAJEEV ALEJANDRINA Start: 08-22-2019 PATIENT STATUS (FROM ED OR OR/PROCEDURAL) RAJEEV ALEJANDRINA Start: 08-22-2019 Urnls dip stick/tabl et reagent auto microscopy RAJEEV TINOCO Start: 08-22-2019 Assay of lactate RAJEEV MICHEL Start: 08-22-2019 Assay of lipase RAJEEV OLIVIA Start: 08-22-2019 Blood count complete auto&auto difrntl wbc RAJEEV TINOCO Start: 08-22-2019 Comprehensive metabo lic panel RAJEEV TINOCO Start: 08-22-2019 INSERT PERIPHERAL IV MA RK ALEJANDRINA Start: 08-22-2019 Urnls dip stick/tabl et [...] Treatment Date Care Activity Detail Author Start: 04-11-2024 Adult BMI Screening Adult BMI Screening [facility] Start: 04-11-2024 Tobacco Screening Tobacco Screening [facility] Start: 02-22-2024 End: 02-22-2024 Patient encounter procedure 02/22/2024 9:30 AM EST Office Visit [facility] [address] [address] Sabrina Dee MD, MPH [address] [place] [address] [facility] [place] Start: 05-25-2023 End: 05-25-2023 Patient encounter procedure 05/25/2023 1:00 PM EDT Office Visit [facility] [address] [place] [address] Orlando Al MD [address] [place] [address] [facility] Start: 05-19-2023 End: 05-10-2024 UPPER EUS UPPER EUS GI/Bronch Routine Alcohol-induced chronic pancreatitis Expected: 05/19/2023, Expires: 05/10/2024 [facility] Comment on above: Expected: 05/19/2023, Expires: Start: 05-11-2023 End: 05-10-2024 VITAMIN D (25-HYDROXY,TOTAL) VITAMIN D (25-HYDROXY,TOTAL) Lab Routine Other osteoporosis without current pathological fracture Expected: 05/11/2023, Expires: 05/10/2024 [facility] Comment on above: Expected: 05/11/2023, Expires: Start: 04-11-2023 Computed tomography of abdomen and pelvis with contrast CT abdomen pelvis w con [facility] Start: 04-11-2023 CT Abdomen and Pelvis W contrast IV [facility] Start: 03-16-2023 End: 03-16-2023 Patient encounter procedure 03/16/2023 Office Visit Gastroenterology Sabrina Dee MD, MPH [address] [place] [id number] [facility] [place] Start: 11-07-2022 COVID-19 Vaccine ( season) COVID-19 Vaccine ( season) [facility] Start: 11-07-2022 Influenza vaccination [facility] Start: 09-25-2022 Lipid panel LIPID SCREENING [facility] Start: 07-29-2022 End: 06-17-2023 UPPER EUS UPPER EUS GI/Bronch Routine Alcohol-induced chronic pancreatitis Expected: 07/29/2022, Expires: 06/17/2023 [facility] Comment on above: Expected: 07/29/2022, Expires: Start: 07-28-2022 End: 01-28-2023 Screening colonoscopy SCREENING COLONOSCOPY GI/Bronch Routine Encounter for screening colonoscopy Expected: 07/28/2022, Expires: 01/28/2023 [facility] Comment on above: Expected: 07/28/2022, Expires: 3 Start: 07-28-2022 End: 07-28-2022 Patient encounter procedure 07/28/2022 Appointment Endoscopy Julia Tyler MD [address] [address] [facility] Start: 06-16-2022 End: 12-16-2022 Screening colonoscopy SCREENING COLONOSCOPY GI/Bronch Routine Encounter for screening colonoscopy Expected: 06/16/2022, Expires: 12/16/2022 [facility] Comment on above: Expected: 06/16/2022, Expires: 3 Start: 06-16-2022 End: 06-16-2022 Patient encounter procedure 06/16/2022 Office Visit Gastroenterology Sabrina Dee MD, MPH [address] [place] [address] [facility] [place] Start: 03-22-2022 Bacteria identified in Urine by Culture [facility] Start: 01-28-2022 End: 01-28-2022 Patient encounter procedure 01/28/2022 Appointment Endoscopy Sabrina Dee MD, MPH [address] [place] [address] [facility] Start: 01-28-2022 Subsequent hospital visit by physician 01/28/2022 Hospital Encounter Endoscopy Sabrina Dee MD, MPH [address] [place] [address] Arrived [facility] Comment on above: Arrived Start: 01-14-2022 End: 12-16-2022 UPPER EUS UPPER EUS GI/Bronch Routine Recurrent acute pancreatitis Expected: 01/14/2022, Expires: 12/16/2022 [facility] Comment on above: Expected: 01/14/2022, Expires: 3 Start: 12-16-2021 End: 12-16-2022 Bone density scan BONE DENSITY AXIAL (HIP, PELVIS, SPINE) Imaging Routine Recurrent acute pancreatitis History of smoking 25-50 pack years Expected: 12/16/2021, Expires: 12/16/2022 [facility] Comment on above: Expected: 12/16/2021, Expires: 3 Start: 11-07-2021 Influenza vaccination INFLUENZA VACCINE (#1) [facility] Start: 10-09-2021 CT of abdomen and pelvis without contrast CT abdomen pelvis [facility] Start: 10-09-2021 End: 10-09-2021 Emergency department patient visit Departed Emergency [facility] Start: 11-13-2020 COVID-19 VACCINE (3 - Booster for Pfizer series) COVID-19 VACCINE (3 - Booster for Pfizer series) [facility] Start: 11-08-2019 Influenza vaccination [place] Start: 11-08-2019 Influenza vaccination given Sequential Influenza Vaccine (#1) [facility] Start: 06-21-2019 Administration of herpes zoster vaccine Zoster Vaccines (1 of 2) [facility] Start: 06-21-2019 Administration of varicella zoster vaccine Zoster (Shingles) Vaccine (1 of 2) [facility] Start: 06-21-2019 Screening for malignant neoplasm of breast Breast cancer screen [place] Start: 06-21-2019 Screening for malignant neoplasm of colon [place] Start: 06-21-2019 Screening for malignant neoplasm of lung LUNG CANCER SCREENING [facility] Start: 06-21-2019 Shingles Vaccine (1 of 2) Shingles Vaccine (1 of 2) [place] Start: 06-21-2019 Zoster vaccine hzv live for subcutaneous use ZOSTER (SHINGLES) VACCINE (1 of 2) [facility] Start: 11-07-2017 Influenza vaccination [facility] Start: 11-07-2016 Influenza vaccination SEQUENTIAL INFLUENZA VACCINE (#1) [facility] Start: 12-10-2014 Screening for malignant neoplasm of cervix PAP SMEAR [facility] Start: 2014 Screening for malignant neoplasm of colon COLORECTAL CANCER SCREENING DISCUSSION [facility] Start: 01-01-2013 Screening for malignant neoplasm of breast MAMMOGRAM SCREENING DISCUSSION [facility] Start: 01-01-2013 Screening mammography Mammogram [facility] Start: 2009 Lipid panel Lipid screen [place] Start: 1990 Screening for malignant neoplasm of cervix [facility] Start: 1988 DTaP,Tdap and Td Vaccines (1 - Tdap) DTaP,Tdap and Td Vaccines (1 - Tdap) [facility] Start: 1988 DTaP/Tdap/Td vaccine (1 - Tdap) DTaP/Tdap/Td vaccine (1 - Tdap) [place] Start: 1988 Hepatitis B vaccination HEP B VACCINE (1 of 3 - 19+ 3-dose series) [facility] Start: 1988 Third diphtheria, tetanus and acellular pertussis (DTaP) vaccination TDAP (ADULT) [facility] Start: 06-21-1987 Hepatitis C antibody, confirmatory test Hepatitis C Screening [facility] Start: 06-21-1987 Tetanus vaccination TETANUS [facility] Start: 1985 COVID-19 Vaccine (1 of 2) COVID-19 Vaccine (1 of 2) [facility] Start: 1984 HIV screening [facility] Start: 1981 Depression Screening Depression Screening [facility] Start: 06-21-1975 Pneumococcal 0-64 years Vaccine (1 of 1 - PPSV23) Pneumococcal 0-64 years Vaccine (1 of 1 - PPSV23) [place] Start: 06-21-1975 PNEUMOCOCCAL VACCINE SERIES (1 - PCV) PNEUMOCOCCAL VACCINE SERIES (1 - PCV) [facility] Start: 06-21-1975 PNEUMOCOCCAL VACCINE SERIES (1 of 2 - PCV) PNEUMOCOCCAL VACCINE SERIES (1 of 2 - PCV) [facility] Start: 1972 History and physical examination, annual for health maintenance Wellness Visit [facility] Start: 1969 Hepatitis B vaccination HEP B VACCINE (1 of 3 - 3-dose series) [facility] Start: 1969 Hepatitis C screening [facility] Start: 1969 Tetanus vaccination [facility] Start: 1969 Tobacco Counseling Tobacco Counseling [facility] CBC auto differential CBC auto d ifferential Lab Routine Daily until discontinued starting 08/23/2019, 3 completed [facility] Comment on above: Daily until discontinued starting 2019, [address] ABDOMEN PELVIS W IV CONTRAST Additional Contrast? None CT ABDOMEN PELVIS W IV CONTRAST Additional Contrast? None Imaging STAT 03/26/2020 3:01 PM EST [facility] IgG Subclasses IgG Subclasses A dd-On 05/14/2017 2:06 PM EST [facility] Initiate Oxygen Therapy Protocol Initiate Oxygen Therapy Protocol Respiratory Care Routine Daily until discontinued starting 08/22/2019 [facility] Comment on above: Daily until discontinued starting 2019 Lipase Lipase Lab Routi ne Daily until discontinued starting 08/23/2019, 3 completed [facility] Comment on above: Daily until discontinued starting 2019, 3 completed Patient Education [facility] Work Phone: Patient referral [facility] Work Phone: End: 08-22-2019 Pulse Oximetry Spot Check Pulse Oximetry Spot Check Respiratory Care Routine One Time for 1 Occurrences starting 08/22/2019 until 08/22/2019 [facility] Comment on above: One Time for 1 Occurrences starting 08/07 until 08/22/2019 Screening colonoscopy SCREENING COLONOSCOPY GI/Bronch Routine Encounter for screening colonoscopy 01/28/2022 9:43 AM [facility] Screening colonoscopy SCREENING COLONOSCOPY GI/Bronch Routine Encounter for screening for malignant neoplasm of colon Ordered: 05/11/2023 [facility] Comment on above: Ordered: 05/11/2023 Immunizations Immunization Date Immunization Notes Care Provider Jhon jones 12-23-2015 influenza, injectabl e, quadrivalent, contains preservative Sabrina Dee MD, MPH Work Phone: [facility] 12-23-2015 influenza virus vaccine, unspecified formulation Sabrina Dee MD, MPH Work Phone: [facility] 12-15-2014 influenza virus vaccine, unspecified formulation Sabrina Dee MD, MPH Work Phone: [facility] Payers Date Payer Category Payer Self-pay [id number] 2022 Medicaid [facility] MEDICAID O [id number] 2022-Present [phone] [address] [place] [address] [id number] 2019 Unknown [facility] MEDICAID xxxxxxxxxxx 2019-Present [phone] CLAIMS DEPARTMENT [address] [place] [address] xxxxxxxxxxx [id number]. [id number] 2017 Unknown [id number] 2017 Unknown 1969 Unknown [id number] 2.16.840.1.260565.3.579.2.900 1969 Unknown [id number] 2.16.840.1.265551.3.579.2.900 1969 Unknown [id number] 2.16.840.1.152490.3.579.2.900 1969 Unknown [id number] 2.16.840.1.179694.3.579.2.900 1969 Unknown [id number] 2.16.840.1.873585.3.579.2.900 1969 Unknown [id number] 2.16.840.1.366420.3.579.2.173 1969 Unknown [id number] 2.16.840.1.859908.3.579.2.173 1969 Unknown [id number] 2.16.840.1.601685.3.579.2.593 1969 Unknown [id number] 2.16.840.1.655991.3.579.2.593 1969 Unknown [id number] 2.16.840.1.769563.3.579.2.593 1969 Unknown [id number] 2.16.840.1.142556.3.579.2.593 1969 Unknown [id number] 2.16.840.1.430319.3.579.2.593 1969 Unknown [id number] 2.16.840.1.926120.3.579.2.593 1969 Unknown [id number] 2.16.840.1.647538.3.579.2.593 1969 Unknown [id number] 2.16.840.1.237263.3.579.2.593 1969 Unknown [id number] 2.16.840.1.634228.3.579.2.593 1969 Unknown [id number] 2.16.840.1.930079.3.579.2.593 1969 Unknown [id number] 2.16.840.1.908224.3.579.2.593 1969 Unknown [id number] 2.16.840.1.898306.3.579.2.593 1969 Unknown [id number] 2.16.840.1.471876.3.579.2.593 1969 Unknown [id number] 2.16.840.1.801071.3.579.2.593 1969 Unknown [id number] 2.16.840.1.826043.3.579.2.1286 1969 Unknown [id number] 2.16.840.1.848857.3.579.2.1286 1969 Unknown [id number] 2.16.840.1.436375.3.579.2.1286 1969 Unknown [id number] 2.16.840.1.957606.3.579.2.1286 1969 Unknown [id number] 2.16.840.1.045289.3.579.2.1286 1969 Unknown [id number] 2.16.840.1.610105.3.579.2.1286 1969 Unknown [id number] 2.16.840.1.360679.3.579.2.594 1969 Unknown [id number] 2.16.840.1.170563.3.579.2.594 1969 Unknown [id number] 2.16.840.1.113463.3.579.2.594 1959 Medicaid [id number] 1959 Unknown [id number] Unknown [id number] 2.16.840.1.197971.3.579.2.531 Unknown [id number] 2.16.840.1.663512.3.579.2.531 Unknown [id number] 2.16.840.1.928135.3.579.2.531 Unknown [id number] 2.16.840.1.464371.3.579.2.531 Social History Date Type Detail Facility Start: 06-09-2017 End: 05-11-2023 Tobacco smoking status ORIS Current every day smoker [facility] End: 10-30-2020 History of tobacco use Cigarette Smoker [facility] Start: 06-09-2017 End: 04-19-2020 Cigarettes smoked current (pack per day) - Reported [facility] Start: 1970 Sex Assigned At Not on file O [facility] Start: 08-22-2019 End: 08-12-2022 Alcohol intake Current non-drinker of alcohol (finding) [place] Exposure to SARS-CoV -2 (event) Unable to assess [place] Start: 03-08-2018 End: 05-11-2023 Tobacco use and exposure Never used [facility]- [place], [place] Start: 07-24-2014 Tobacco Comment Smokes < 1/2 p pd, smoker for 30+ years [facility] Start: 07-24-2014 Alcohol Comment Prior heavy dr carrillo, quit 8 years ago [facility] Start: 04-19-2020 End: 04-11-2023 Sex Assigned At [facility] Start: 09-25-2021 End: 04-18-2023 Tobacco smoking status NHIS Smoker (finding) [facility] Start: 1970 Sex Assigned At Female F [facility] Start: 05-09-2016 Alcohol Comment been sober for 9 yea rs [facility] Start: 04-02-2023 Tobacco smoking stat us ORIS Current some day smoker [facility] Start: 06-25-2022 Tobacco smoking stat [facility] Ex-smoker [facility] Start: 04-11-2023 End: 05-11-2023 Alcohol intake Ex-drinker (finding) [facility] Childcare Unknown [facility] Start: 06-25-2022 Alcohol Comment Has not consum ed alcohol in 12 years [facility] Gender identity Identifies as fe male gender (finding) [facility] Clinical Notes 10-08-2019 to 05-22-2023 Telephone Encounter - Julia Portillo CMA - 05/22/2023 12:53 PM EDTTelephone Encounter - Julia Portillo CMA - 05/22/2023 12:53 PM Nando Bautista MA - 05/11/2023 9:00 AM EST Note Date & Type Note Facility 05-22-2023 Miscellaneous Notes Called patient to remind them to bring their most current copy of their medication list with them to their appt. Patient verbalizes understanding. documented in this encounter [facility] 05-22-2023 Telephone encounter Note Called patient to remind them to bring their most current copy of their medication list with them to their appt. Patient verbalizes understanding. [employer] 05-11-2023 History of Presen t illness Narrative This Oxygen Therapist verified the patients name and date of . Subjective Reason for Visit: She had concerns including Follow-up. HPI: 51 yo woman with: 1. EtOH chronic pancreatitis, last drink in 2014 (15 years of drinking 12 pack beer/day) 2. Tobacco abuse, 1/2 ppd. Cut down smoking in early 2019 (before 1 ppd, 20 pack year history) 3. Multiple attacks of prior acute pancreatitis; last attack of acute pancreatitis (with elevated lipase) September 2021 4. Prior EUS CPB in 2015, 2016, 2019, 2022 with good response; also prior feeding tube for pain management 5. Prior evaluation at [facility] for TPIAT and was not a candidate 6. Last CT 04/12/23 No calcification in the pancreas. Last EUS in 2016 at [facility]: hyperechoic foci, hyperechoic duct wall, stranding. PD 4 mm. 7. Osteoporosis Patient had a repeat CPB on 08/12/22. EGD/EUS 08/12/22 chtazki ring dilated. 3cm hiatal hernia. Dilation of CBD up to 10 mm. Pancreatic parenchymal abnormalites in the entire pancreas. Celiac plexus block performed. Following her CPB, She noted only improvement in symptoms for 3 months followed by recurrence of symptoms. Patient continues to endorse ongoing flare ups of acute pancreatitis or abdominal pain which she states occur about once a week. She has predominantly the abdominal pain than nausea/vomiting. Patient has looser stools (typically 3 times daily). She has been taking pancreatic enzyme supplementation before meals (2 tables twice daily before meals) and has noticed improvement in her looser stools, but with still ongoing symptoms. Currently she is feeling like her abdominal pain is at baseline and she has not had a flare up for the past 2 days. She did have a recent admission to the ED for abdominal pain in 04/11/2023. Had CTAP without any acute findings. She was treated supportively and discharged. PMH: She has a past medical history of Anemia, Depression, H. pylori infection, Neutrophilic leukocytosis, and Pancreatitis. She has no past medical history of Arrhythmia, Arthritis, Asthma, CAD (coronary artery disease), Cardiac angina, Congestive heart failure, COPD (chronic obstructive pulmonary disease), Diabetes mellitus, Difficult intubation, Essential hypertension, benign, GERD (gastroesophageal reflux disease), Glaucoma, Hepatitis, HIV (human immunodeficiency virus infection), Hyperlipidemia, Hyperthyroidism, Hypothyroidism, KS (myocardial infarction), Migraine, PEGGY (obstructive sleep apnea), [...] medication list which includes the following prescription(s): Pancreatic enzymes (Creon) [address] Particles capsule and Ergocalciferol 1.25 MG (74363 UT) capsule. Allergies: She is allergic to toradol [ketorolac tromethamine], morphine, tramadol, haloperidol, ibuprofen, penicillins, and reglan [metoclopramide]. Social History: She reports that she has been smoking cigarettes. She has a 32 pack-year smoking history. She has never used smokeless tobacco. She reports that she does not drink alcohol and does not use drugs. Family History: Her family history includes Breast Cancer in her mother. Review of Systems: Constitutional: No fever, no chills, no night sweats ENT/Mouth: No eye pain, no changes in vision no sore throat Eyes: No Eye Pain, , No Vision Changes Cardiovascular: No Chest Pain, No SOB, No palpitations Respiratory: No Cough, No shortness of breath Gastrointestinal: +abdominal pain +nausea+vomiting Genitourinary: No dysuria, No urgency, no frequency, Musculoskeletal: No Arthralgias, No Myalgias, No Back Pain, No Neck Pain, Skin: No Rash Neuro: No Weakness, No Numbness, No Paresthesias, No Loss of Consciousness, No Syncope, No Dizziness, No Headache, Psych: No SI no Depression No anxiety Heme/Lymph: No bleeding, No Bruises Endocrine: No Polyuria, No Polydipsia, No Temperature Intolerance Physical Examination Vital Signs: BP 110/48 Pulse 107 Ht 1.575 m (5' 2 ) Wt 52.1 kg (114 lb 12.8 oz) SpO2 97% BMI 21.00 kg/m Smoking Status Every Day General: The patient is a 52 y.o. female in NAD HEENT: NCAT, EOMI, PERRLA, no LAD, no TYM, OP is without E/E/E, MMM Lungs: Breathing comfortably on RA Heart: RRR c nl S1 & S2, no M/R/G Abdomen: Epigastric tenderness, +BS, no rebound, no guarding Extremities: Warm and dry, no C/C/E Neruo: CN II-XII were intact Labs: [facility] labs reviewed Assessment and Plan: ICD-10-CM 1. Alcohol-induced chronic pancreatitis K86.0 UPPER EUS 2. Encounter for screening for malignant neoplasm of colon Z12.11 SCREENING COLONOSCOPY 3. Other osteoporosis without current pathological fracture M81.8 AMB REFERRAL TO ENDOCRINOLOGY VITAMIN D (25-HYDROXY,TOTAL) 4. Epigastric pain R10.13 5. Smoking F17.200 6. Gastroesophageal reflux disease without esophagitis K21.9 51 yo woman with alcoholic chronic pancreatitis, also current smoker. She quit drinking in 2019 and is trying hard to quit smoking. She is a prior EUS-CPB responder. She has intermittent flare ups and is seeking non-narcotic management. 1. Tobacco cessation 2. Screening colonoscopy ordered 3. Continue PERT, will increase dosage 4. Continue Vitamin D and Calcium supplements. Will check updated vitamin D levels and provide a course of vitamin D 50,000 IU 5. Repeat EUS-CPB as needed (She is interested in re-treatment) 6. Refer to endocrinology for Osteoporosis (DEXA 01/2022) RTC 6 months Patient Instructions Schedule endocrinology appointment for osteoporosis - schedule at [facility]. Also talk to your primary care physician. It could be convenient to get treatment for osteoporosis with your PCP or local endocrinology. Schedule screening colonoscopy Increase pancreatic enzyme (Creon) to 3 capsules with each meal Take prescription strength (50,000 units) vitamin D x 8 weeks. Continue daily maintenance vitamin D Take calcium supplements up to 1200mg daily Return to clinic in 9 months Schedule EUS for celiac plexus block I have independently seen, evaluated and examined the patient along with the resident/fellow on 05/11/23 and I agree with the findings, assessment and plan. 52 yo woman with alcoholic chronic pancreatitis, also current smoker; intermittent flares of acute on chronic pancreatitis. She quit drinking in 2019 and is trying hard to quit smoking. She is a prior EUS-CPB responder (x 5 times so far). She has intermittent flare ups and is on non-narcotic management. Osteoporosis on DEXA Scan. At prior visit, we had requested endocrinology consultation and patient has not been able to make the appointment. So also she has not made the appointment to undergo screening colonoscopy. She reports continued relief with EUS-CPB. Pt continues to smoke 1 ppd. 1. EUS-CPB to be scheduled 2. Endocrinology consultation for Osteoporosis; on Vitamin D and Calcium supplements. Will provide 8 weeks of therapeutic vitamin D. 3. Screening colonoscopy - scheduled (3rd request) 4. Continue PERT, Creon 3 capsules with each meal (patient eats twice daily). 5. GERD - continue PPI PRN 6. RTC in 9 months Sabrina Dee MD, MPH Professor of Clinical Medicine Section of Advanced Endoscopy and Pancreatic Disorders Division of Gastroenterology, Hepatology, and Nutrition [facility] Instructions Sabrina Dee MD, MPH - 05/11/2023 9:00 AM EST Schedule endocrinology appointment for osteoporosis - schedule at [facility]. Also talk to your primary care physician. It could be convenient to get treatment for osteoporosis with your PCP or local endocrinology. Schedule screening colonoscopy Increase pancreatic enzyme (Creon) to 3 capsules with each meal Take prescription strength (50,000 units) vitamin D x 8 weeks. Continue daily maintenance vitamin D Take calcium supplements up to 1200mg daily Return to clinic in 9 months Schedule EUS for celiac plexus block documented in this encounter [facility] 04-16-2023 Miscellaneous Notes Pt called requesting to schedule a new patient appt. Referral is in media from Tamela Keenan DO. A good phone number to reach the pt: [phone] Referral in media was to [facility] so pt has no referral to nephrology. LM informing pt she would need to have her referring provider fax us over a referral and then I could schedule her a new pt appt. documented in this encounter [facility] 04-16-2023 Telephone encounter Note Pt called requesting to schedule a new patient appt. Referral is in media from Tamela Keenan DO. A good phone number to reach the pt: [phone] [facility] Tele[facility] encounter Note Referral in media was to [facility] so pt has no referral to nephrology. LM informing pt she would need to have her referring provider fax us over a referral and then I could schedule her a new pt appt. [facility] 04-16-2023 Miscellaneous Notes LMOM for the patient to call and schedule their new pt appointment with [facility]. documented in this encounter [facility] 04-16-2023 Telephone encounter Note LMOM for the patient to call and schedule their new pt appointment with [facility]. [facility] 08-12-2022 History and physical note ENDOSCOPIC PREPROCEDURE HISTORY AND PHYSICAL HISTORY OF PRESENT ILLNESS: Chioma Rainey is a 52 y.o. female seen in the pre-procedure area at [facility]. The indication for endoscopic evaluation [...] ULTRASOUND N/A 01/23/2016 Laterality: N/A; Surgeon: Pineda Tory MD; Location: [facility] CHANGE TUBE GASTROSTOMY N/A 08/20/2015 Laterality: N/A; Surgeon: Yanni Alonzo MD; Location: [facility] EGD DIAGNOSTIC N/A 06/25/2015 Laterality: N/A; Surgeon: Pineda Troy MD; Location: [facility] EGD W/ PLACEMENT OR REPLACEMENT PEG N/A 06/15/2015 Laterality: N/A; Surgeon: Curry Newell MD; Location: [facility] EGD W/ INSERTION [...] 20 mg, Oral, DAILY Pancreatic enzymes (Creon) 80383-[address] Particles capsule 48,000 Units, Oral, 3 TIMES DAILY WITH MEALS Current Outpatient Medications: omeprazole [address] capsule, Take 1 capsule by mouth daily., Disp: 30 capsule, Rfl: 6 amitriptyline 10 MG tablet, Take 2.5 tablets by mouth at bedtime., Disp: 30 tablet, Rfl: 11 ergocalciferol 1.25 MG (51934 UT) capsule, Take 1 capsule by mouth once a week for 8 doses., Disp: 8 capsule, Rfl: 0 Pancreatic enzymes (Creon) 9[address]20-[address] Particles capsule, Take 2 [...] Monitored Anesthesia Care. Sabrina Dee MD, MPH [facility] 08-12-2022 History and physical note ENDOSCOPIC PREPROCEDURE HISTORY AND PHYSICAL HISTORY OF PRESENT ILLNESS: Chioma Rainey is a 52 y.o. female seen in the pre-procedure area at [facility]. The indication for endoscopic evaluation includes: Alcohol-induced chronic pancreatitis PAST MEDICAL HISTORY: Past Medical History: Diagnosis Date Anemia Depression H. pylori infection Neutrophilic leukocytosis Pancreatitis SURGICAL HISTORY: Past Surgical History: Procedure Laterality Date EGD W/ ULTRASOUND N/A 12/01/2019 Laterality: N/A; Surgeon: Sabrina Dee MD, MPH; Location: [facility] EGD W/ ULTRASOUND N/A 04/23/2016 Laterality: N/A; Surgeon: Pineda Troy MD; Location: [facility] EGD W/ ULTRASOUND N/A 01/23/2016 Laterality: N/A; Surgeon: Pineda Troy MD; Location: [facility] CHANGE TUBE GASTROSTOMY N/A 08/20/2015 Laterality: N/A; Surgeon: Yanni Alonzo MD; Location: [facility] EGD DIAGNOSTIC N/A 06/25/2015 Laterality: N/A; Surgeon: Pineda Troy MD; Location: [facility] EGD W/ PLACEMENT OR REPLACEMENT PEG N/A 06/15/2015 Laterality: N/A; Surgeon: Curry Newell MD; Location: [facility] EGD W/ INSERTION TUBE OR CATHETER N/A 06/13/2015 Laterality: N/A; Surgeon: Jose Ty MD; Location: [facility] EGD W/ ULTRASOUND N/A 02/14/2015 Laterality: N/A; Surgeon: Pineda Troy MD; Location: [facility] CHOLECYSTECTOMY CHOLECYSTECTOMY, LAPAROSCOPIC HYSTERECTOMY MEDICATIONS: Current Outpatient Medications Medication Instructions Amitriptyline (ELAVIL) 25 mg, Oral, DAILY AT BEDTIME Ergocalciferol (VITAMIN D2) 50,000 Units, Oral, WEEKLY omeprazole (PRILOSEC) 20 mg, Oral, DAILY Pancreatic enzymes (Creon) [address] Particles capsule 48,000 Units, Oral, 3 TIMES DAILY WITH MEALS Current Outpatient Medications: omeprazole [address] capsule, Take 1 capsule by mouth daily., Disp: 30 capsule, Rfl: 6 amitriptyline 10 MG tablet, Take 2.5 tablets by mouth at bedtime., Disp: 30 tablet, Rfl: 11 ergocalciferol 1.25 MG (58694 UT) capsule, Take 1 capsule by mouth once a week for 8 doses., Disp: 8 capsule, Rfl: 0 Pancreatic enzymes (Creon) 23722-[address] units [address] Particles capsule, Take 2 [...] MD, MPH documented in this encounter [facility] 08-12-2022 Nurse Note PT Given discharge paperwork and reviewed per MD and nurse. Thread Laster available.Diet and restrictions reviewed as well. Venous access removed no complications noted. Ok to d/c Anesthesia and procedural . documented in this encounter [facility] 08-12-2022 Nurse Surgical operation note PT Given discharge paperwork and reviewed per MD and nurse. Thread Laster available.Diet and restrictions reviewed as well. Venous access removed no complications noted. Ok to d/c Anesthesia and procedural . [facility] 06-16-2022 History of Presen t illness Narrative This Oxygen Therapist verified the patients name and date of [...] for pain management 5. Prior evaluation at [facility] for TPIAT and was not a candidate 6. Last CT was at [facility] in 05/2019: No calcification in the [...] (human immunodeficiency virus infection), Hyperlipidemia, Hyperthyroidism, Hypothyroidism, KS (myocardial infarction), Migraine, PEGGY (obstructive sleep apnea), [...] amitriptyline 10 MG tablet, ergocalciferol 1.25 MG (68400 UT) capsule, and Pancreatic enzymes (Creon) 51156-[address] units [address] Particles capsule. Allergies: She [...] Hepatology, and Nutrition documented in this encounter [facility] 06-16-2022 Instructions Sabrina Dee MD, MPH - 06/16/2022 11:00 AM EDT Schedule EUS celiac plexus block; EGD dilation Referral to endocrinology; appointment to be scheduled Return to clinic in Mar 2023 Smoking cessation Vitamin D 2000 units daily Calcium supplement 1 gram daily Omeprazole (Prilosec) 20mg daily, take at least 30 mins before dinner documented in this encounter [facility] 01-28-2022 Miscellaneous Notes Attending physician in room speaking with patient and family on results. Attending physician ok for discharge. Pt ambulated unassisted with steady gait and balance. IV removed and discharge instructions given with verbal ok by patient of understanding. Pt discharged via w/c with hazmat tanker driver from unit. Dr dee aware patient ready for results Updated dr goins on patient pain and received new orders documented in this encounter [facility] 01-28-2022 Note Formatting of this n ote might be different from the original. Attending physician in room speaking with patient and family on results. Attending physician ok for discharge. Pt ambulated unassisted with steady gait and balance. IV removed and discharge instructions given with verbal ok by patient of understanding. Pt discharged via w/c with hazmat tanker driver from unit. [facility] 01-28-2022 Note Formatting of this n ote might be different from the original. Dr dee aware patient ready for results [facility] 01-28-2022 Note Formatting of this n ote might be different from the original. Updated dr goins on patient pain and received new orders [facility] 01-28-2022 History and physical note ENDOSCOPIC PREPROCEDURE HISTORY AND PHYSICAL HISTORY OF PRESENT ILLNESS: Chioma Rainey is a 51 y.o. female seen in the preoprocedure area at [facility]. The indication for endoscopic evaluation includes: [...] PEG N/A 06/15/2015 Laterality: N/A; Surgeon: Curry Newell MD; Location: [facility] EGD W/ INSERTION TUBE OR CATHETER N/A 06/13/2015 Laterality: N/A; Surgeon: Jose Ty MD; Location: [facility] EGD W/ ULTRASOUND N/A 02/14/2015 Laterality: N/A; Surgeon: Pineda Troy MD; Location: [facility] CHOLECYSTECTOMY CHOLECYSTECTOMY, LAPAROSCOPIC HYSTERECTOMY MEDICATIONS: Current Outpatient Medications Medication Instructions amitriptyline (ELAVIL) 25 mg, Oral, DAILY AT BEDTIME ergocalciferol (VITAMIN D2) 50,000 Units, Oral, WEEKLY Pancreatic enzymes (Creon) 28855-[address] units [address] Particles capsule 48,000 Units, Oral, 3 TIMES DAILY WITH MEALS Current Outpatient Medications: amitriptyline 10 MG tablet, Take 2.5 tablets by mouth at bedtime., Disp: 30 tablet, Rfl: 11 Pancreatic enzymes (Creon) [address] Particles capsule, Take 2 capsules by mouth 3 times daily with meals., Disp: 180 capsule, Rfl: 0 ergocalciferol 1.25 MG (35310 UT) capsule, Take 1 capsule by mouth [...] Monitored Anesthesia Care. Sabrina Dee MD, MPH [facility] 01-28-2022 History and physical note ENDOSCOPIC PREPROCEDURE HISTORY AND PHYSICAL HISTORY OF PRESENT ILLNESS: Chioma Rainey is a 51 y.o. female seen in the preoprocedure area at [facility]. The indication for endoscopic evaluation includes: [...] PEG N/A 06/15/2015 Laterality: N/A; Surgeon: Curry Newell MD; Location: [facility] EGD W/ INSERTION TUBE OR CATHETER N/A 06/13/2015 Laterality: N/A; Surgeon: Jose Ty MD; Location: [facility] EGD W/ ULTRASOUND N/A 02/14/2015 Laterality: N/A; Surgeon: Pineda Troy MD; Location: [facility] CHOLECYSTECTOMY CHOLECYSTECTOMY, LAPAROSCOPIC HYSTERECTOMY MEDICATIONS: Current Outpatient Medications Medication Instructions amitriptyline (ELAVIL) 25 mg, Oral, DAILY AT BEDTIME ergocalciferol (VITAMIN D2) 50,000 Units, Oral, WEEKLY Pancreatic enzymes (Creon) 53434-[address] Particles capsule 48,000 Units, Oral, 3 TIMES DAILY WITH MEALS Current Outpatient Medications: amitriptyline 10 MG tablet, Take 2.5 tablets by mouth at bedtime., Disp: 30 tablet, Rfl: 11 Pancreatic enzymes (Creon) [address]697-[address] Particles capsule, Take 2 capsules by mouth 3 times daily with meals., Disp: 180 capsule, Rfl: 0 ergocalciferol 1.25 MG (55005 UT) capsule, Take 1 capsule by mouth [...] Dee MD, MPH documented in this encounter [facility] 12-16-2021 History of Presen t illness Narrative [...] for pain management 5. Prior evaluation at [facility] for TPIAT and was not a candidate 6. Last CT was at [facility] in 05/2019: No calcification in the [...] (human immunodeficiency virus infection), Hyperlipidemia, Hyperthyroidism, Hypothyroidism, KS (myocardial infarction), Migraine, PEGGY (obstructive sleep apnea), [...] 10 MG tablet and Pancreatic enzymes (Creon) 41793-[address] Particles capsule. Allergies: She [...] in 6 months documented in this encounter [facility] 12-16-2021 Instructions Sabrina Dee MD, MPH - 12/16/2021 11:30 AM EDT Schedule DEXA scan Schedule colonoscopy Schedule EUS Start vitamin D 1,000 units daily. Start calcium supplements 1g daily RTC in 6 months documented in this encounter [facility] 03-19-2021 Evaluation note Encounter Date Diagnosis Assessment [...] Patient care instructions given in writting by [facility] Care At Home document Sand 9 Other 08-01-2020 History general Narrative - Reported* Type Description Date Medical History chronic pancreatitis Medical History chronic pain Medical History former alcoholic Surgical History [facility]d- [facility] 10[facility]2019 Surgical History GALLBLADDER Surgical History COLON-[facility] Hospitalization History see above Sand 9 Other Evjroslaip noteNo assessment information available [facility] Work Phone: evaluation note* Diagnosis Recurrent acute pancreatitis- Primary Acute pancreatitis History of smoking 25-50 pack years Alcohol-induced chronic pancreatitis Chronic pancreatitis Epigastric pain Abdominal pain, epigastric Encounter for screening colonoscopy Special screening for malignant neoplasms, colon documented [facility] this [facility] Diagnosis Recurrent acute pancreatitis Acute pancreatitis History of smoking 25-50 pack years Encounter for screening colonoscopy Special screening for malignant neoplasms, colon documented [facility] this [facility] Diagnosis Other osteoporosis without current pathological fracture- Primary Recurrent acute pancreatitis Acute pancreatitis Encounter for screening colonoscopy Special screening for malignant neoplasms, colon [facility] Encounter for screening colonoscopy Special screening for malignant neoplasms, colon [facility] Diagnosis Osteoporosis without current pathological fracture, unspecified osteoporosis type- Primary Alcohol-induced chronic pancreatitis Chronic pancreatitis documented [facility] this [facility] Diagnosis Alcohol-induced chronic pancreatitis Chronic pancreatitis documented in this [facility] Diagnosis Alcohol-induced chronic pancreatitis- Primary Chronic pancreatitis Encounter for screening for malignant neoplasm of colon Special screening for malignant neoplasms, colon Other osteoporosis without current pathological fracture Epigastric pain Abdominal pain, epigastric Smoking Tobacco use disorder Gastroesophageal reflux disease without esophagitis Esophageal reflux [facility] this [facility] Additional Instructions Fluids Phenergan if needed for nausea vomiting Bentyl as needed for abdominal pain Follow-up with your GI specialist call Thursday for appointment Return here if any problems persist or worsen [facility] Discharge instructions Additional Instructions Clear with diet today and advance as tolerated Push fluids Percocet if needed for severe pain Zofran or Phenergan if needed for nausea vomiting Keep your doctor's appointment tomorrow as planned Return here if you develop any increased pain, vomiting unable to be controlled, fevers, chills or any other concernJoint [facility] Work Phone: Hospital Discharge instructions Additional Instructions Follow-up with your primary care doctor Return to ED if develop worsening symptoms or concernsJoint [facility] Work Phone: Hospital Discharge instructions Additional Instructions Follow-up with your private physician as your calcium was slightly elevated Return if symptoms are worse Lots of fluids/no alcoholJoint Township District Memorial Hospital Work Phone: InstructionsNot on filedocumented in this encounter [facility] SystemInstructionsNot on filedocumented in this encounter [facility] SystemInstructionsNot on filedocumented in this encounter [facility] Discharge Instructions * Jose Brown PA-C - [...] Log into your personal health record on [email or web address] and enter E907 in the Education box to learn more about Abdominal Pain: Care Instructions. Current as of: August 03, 2015 Content Version: 11.2 8087-2757 [employer]. Care instructions adapted under license by your healthcare professional. If you have questions about a medical condition or this instruction, always ask your healthcare professional. [employer] disclaims any warranty or liability for your [...] Log into your personal health record on [email or web address] and enter H591 in the Education box to learn more about Nausea and Vomiting: Care Instructions. Current as of: August 03, 2015 Content Version: 11.2 3592-9196 [employer]. Care instructions adapted under license by your healthcare professional. If you have questions about a medical condition or this instruction, always ask your healthcare professional. [employer] disclaims any warranty or liability for your use of this information. Please review regarding your visit: Please note that your blood pressure during this ER visit was above 120/80 mmHg. YOUR BP READING WAS: 111/88 The [place] [employer] (AHA) defines a normal blood [...] review at your convenience for more information: [email or web address] in this encounter* Discharge Instr - Other Orders - Poncho Sparks RN - 05/15/2017 1:20 PM EST Patient voices desire to leave hospital AMA. IV removed. Patient is ambulatory in care of spouse. [facility] hospitalist notified. in this encounter* Montse Khan CNP - 08/24/2017 Seek medical attention if you have worsening symptoms or other concerns. Please follow up with your family doctor or one of your choosing. You may find a provider through the [facility] Physician Referral Service by calling [phone]) or by visiting [email or web address] Chioma, Thank You for choosing [facility]! The following attachments cannot be sent through Care Everywhere. * Nausea and Vomiting (Equatorial [place]) * Gastroenteritis ([place]atorial [place]) * Diarrhea ([place]atorial [place]) in this encounter The following attachments cannot be sent through Care Everywhere. * Pancreatitis (Equatorial [place]) in this encounter* Instructions* Laura Myeer, RN - 08/25/2019 Patient Instructions: Activity: activity as tolerated Diet: encourage fluids GI specialist in 2 weeks. * Attachments The following attachments cannot be sent through Care Everywhere. * Pancreatitis: Chronic Diet (Equatorial [place]an) * Pancreatitis ([place]) documented in this encounter Assessments Diagnosis Epigastric [...] Not Specified Unknown family medical history Unknown Relationship Condition Age at Onset Recorded Date/T eli Not Specified Unknown family medical history Unknown Not Specified Unknown Advance Directives Documents on File Type Date Recorded Patient Range Conservationist Expl anation Advance Directives and Living Will Power of Sweet Goods Machine Operator Latest Code Status on File Code Status Date Activated Date Inactivated Comments Full Code 08/22/2019 4:27 PM Documents on File Type Date Recorded Patient Range Conservationist Expl anation Advance Directives and Livin g [...] Documents on File Type Date Recorded Patient Range Conservationist Expl anation ACP-Advance Directive ACP-Power of Sweet Goods Machine Operator Latest Code Status on File [...] toradol is contraindicated. Called Dr. Hughes back, check writer explained that patient is tolerating dilaudid. Dr. Hughes ordered dose of dilaudid increased from 0.25 mg to 0.5 mg q4 hrs PRN. * Ladan Stearns RN - 08/24/2019 1:27 PM EDT Patient walking in hallway at this time. * Ladan Stearns RN - 08/24/2019 9:14 AM EDT Bacteriologist Pharmaceutical to patients bedside at this time to reassess pain. Patient sitting in chair, appears restless and is tearful. Patient states Dilaudid did not help the pain, states there is nothing check writer can do as she deals with this often. Will continue to monitor patient. * Carley Camara APRN - NAOMY - 08/24/2019 7:58 AM EDT Progress Note [...] Scheduled for EGD in September with her Metal Die Finisher at [facility] Discharge Planning -- Home when stable aCrley Camara APRN, YOUTH ADVOCATE-C Associated attestation - Rajeev Tinoco MD - 08/24/2019 5:30 PM EDT Attending Supervising Physician s Attestation Statement I have personally evaluated and examined the patient [id number] in conjunction with the nurse practitioner. I [...] Examined and Reviewed plan of care with YOUTH ADVOCATE. Directions and discussion about care and plans. [...] [place] RN - 08/23/2019 4:40 PM EDT Bacteriologist Pharmaceutical contacted Dr. Tinoco regarding update that patient [...] he would not give order for Benedryl. Bacteriologist Pharmaceutical let nurse know that if patient's c/o ithcing and redness doesn't improve in an hour, that check writer will be calling back to update physician. * Brie Birmingham RN - 08/23/2019 3:20 PM EDT Bacteriologist Pharmaceutical called into patient's room d/t patient c/o itching, feeling hot , and slight redness noted to BUE and face. Bacteriologist Pharmaceutical contacted Dr. Tinoco office and left message with his nurse, asking for IV Benedryl and d/c of Lovenox. Patient thinks she may have had reaction to Lovenox in the past, and thatis the only other med she is currently taking here other than Dilaudid. Bacteriologist Pharmaceutical did once again verify that patient usually [...] medically stable. Patient lives with her in [place]. She uses no DME and has no outside services currently in place. Patient provides for her own transportation needs and manages her medications. She is independent with her ADL's. PCP is [facility]. Patient has [facility] and denies needing further assistance with the cost of her medications. Discharge plan is home with no additional services at this time. Patient is a 'Full Code' status. She has no healthcare directives and voices that she is not interested in pursuing these documents further. COLD PATCHER to monitor and assist with discharge planning [...] Birmingham RN - 08/23/2019 9:05 AM EDT Bacteriologist Pharmaceutical made COMPUTER SYSTEMS DESIGN ANALYST aware that patient is vomiting at this time since clear liquid diet added. Bacteriologist Pharmaceutical to give Zofran and place patient back NPO. * Janine Raygoza RD, LD - 08/23/2019 8:24 AM EDT Nutrition Assessment [...] weight loss, but states of weight gain. [id number] Discussed need to re-zero Pt bed to verify gain. She declined education needs states she has a GI doctor and RDN at the [facility]. Reports following the guidelines they recommended. States [...] 5. Fluid Accumulation-No significant fluid accumulation, 6. Women'S Ministry Director Strength-Not measured Nutrition Risk Level: Moderate Nutrient Needs: Estimated Daily Total Kcal: 4412-4754(20-23/kg) Estimated Daily Protein (g): 65-75g(1.3-1.5g/kg) Estimated Daily [...] weight gain/23%, recommend to re-zero Pt bed [place] Body Wt: 110 lb (49.9 kg), % [place] Body 129% BMI Classification: BMI 25.0 - [...] Nausea or Vomiting, Patient/Family Education Contact Number: [phone] * Carley Camara APRN - COMPUTER SYSTEMS DESIGN ANALYST - 08/23/2019 7:30 AM EDT Progress Note [...] Daily Discharge Plan--later today/tomorrow Carley Camara APRN, YOUTH ADVOCATE-C Associated attestation - Rajeev Tinoco MD - 08/23/2019 12:04 PM EDT Attending Supervising Physician s Attestation Statement I have personally evaluated and examined the patient [id number] in conjunction with the nurse practitioner. I [...] Examined and Reviewed plan of care with YOUTH ADVOCATE. Directions and discussion about care and plans. [...] of running a code on another patient; assistant shift supervisor states that report will be called when able. Bacteriologist Pharmaceutical unable to get ahold of staff inED to put patient in network services project manager so that check writer can transfer patient over to [facility]. Will try again shortly. documented in this encounter Chief Complaint and Reason for Visit Chief Complaint Abd Pain hx Pancreat itis Abd Pain Chief Complaint Abd Pain hx Pancreat itis Abd Pain rt side pain abd pain Chief Complaint nausea, pain , diarr hea Chief Complaint abd pain Chief Complaint lt side pain Chief Complaint lt side pain Abd pain, Vomiting, hx Pancreatitis Chief Complaint lt side pain Abd pain, Vomiting, hx Pancreatitis abd pain/vomiting Reason for Referral Specialty Diagnoses / Procedures Referred By Zia t Referred To Contact Diagnoses Alcohol-induced chronic pancreatitis Procedures UPPER EUS VT ESOPHAGOGASTRODUODENOSCOPY US SCOPE W/ADJ STRXRS Sabrina Dee MD, MPH [address] [place] [phone] Referral ID Status Reason Start Date Expiration Date V isits Requested Visits Authorized [id number] New Request 06/16/2022 07/11/2023 1 1 Specialty Diagnoses / Procedures Referred By Contac t Referred To Contact Endocrinology, Diabetes & Metabolism Diagnoses Osteoporosis without current pathological fracture, unspecified osteoporosis type Sabrina Dee MD, MPH [address] [place] [phone] Referral ID Status Reason Start Date Expiration Date V isits Requested Visits Authorized [id number] New Request 06/16/2022 07/11/2023 1 1 Specialty Diagnoses / Procedures Referred By Contac t Referred To Contact Diagnoses Encounter for screening colonoscopy Procedures SCREENING COLONOSCOPY VT COLON CA SCRN NOT HI RSK IND Sabrina Dee MD, MPH [address] [place] [phone] Referral ID Status Reason Start Date Expiration Date V isits Requested Visits Authorized [id number] New Request 12/16/2021 01/10/2023 1 1 Specialty Diagnoses / Procedures Referred By Contac t Referred To Contact Diagnoses Recurrent acute pancreatitis History of smoking 25-50 pack years Procedures BONE DENSITY AXIAL (HIP, PELVIS, SPINE) Sabrina Dee MD, MPH [address] [place] [phone] Referral ID Status Reason Start Date Expiration Date V isits Requested Visits Authorized [id number] New Request 12/16/2021 01/10/2023 1 1 Specialty Diagnoses / Procedures Referred By Contac t Referred To Contact Diagnoses Recurrent acute pancreatitis Procedures UPPER EUS VT EGD US GUIDED TRANSMURAL INJXN/FIDUCIAL MARKER Sabrina Dee MD, MPH [address] [place] [phone] Referral ID Status Reason Start Date Expiration Date V isits Requested Visits Authorized [id number] New Request 12/16/2021 01/10/2023 1 1 Additional [...] the patient. I discussed the patient with YOUTH ADVOCATE/PA. I agree with the YOUTH ADVOCATE/PA treatment plan. I agree with the YOUTH ADVOCATE/PA plan of care. I agree with the YOUTH ADVOCATE/PA dispo as documented. 46-year-old female presents with abdominal pain. She states I have chronic pancreatitis and this feels like a flareup . States that she took her usual Phenergan and Nash with minimal relief so came the emergency [...] She is going to follow with her plant floor automation manager with whom she has an appointment on [...] the pain. Ill wait for now. Herendasher, PA notified and aware at this time. [...] different from the original. ED PROVIDER NOTE [facility] EMERGENCY DEPARTMENT NAME: Chioma Rainey AGE: 46 y.o. : 1970 VISIT DATE: 06/09/2017 CSN: [id number] PCP: Alexander Nichols MD Chief Complaint Patient [...] Phenergan suppository. She states that she took Nash last night. Last dose of Nash was around 9 PM last night. She [...] Yellow Clarity, Urine Cloudy (A) Clear Specific [place] 1.024 1.005 - 1.025 pH, Urine 5.0 [...] Phenergan suppositories. She has follow-up with her plant floor automation manager at [facility] in 2 weeks. Do not [...] Information 1. Pineda Troy MD. Specialty: Gastroenterology [address] [place] [address] Contact information for after-discharge care Follow-up information has not been specified. New Prescriptions No medications on file (Please note that portions of this note may have been completed with a voice recognition software. Efforts were made to correct any errors, but occasionally words are mis-transcribed.) Jose Brown PA-C 06/09/17 1638 Pt states I have pancreatitis and I am having a flare up since last night . Pt relates mid abdominal pain that shoots into the left side of her back. Pt has been taking prescribed Nash without relief and states she has been vomiting.in this encounter I personally interviewed the patient. I personally examined the patient. I discussed the patient with YOUTH ADVOCATE/PA. I agree with the YOUTH ADVOCATE/PA treatment plan. I agree with the YOUTH ADVOCATE/PA plan of care. I agree with the YOUTH ADVOCATE/PA dispo as documented. I saw evaluate this [...] different from the original. ED PROVIDER NOTE [facility] MEDICAL OBSERVATION NAME: Chioma Rainey AGE: 46 y.o. : 1970 VISIT DATE: 05/14/2017 CSN: [id number] PCP: Alexander Nichols MD Chief Complaint Patient [...] Colorless, Yellow Clarity, Urine Clear Clear Specific [place] 1.006 1.005 - 1.025 pH, Urine 5.0 [...] in the left lower pelvis. Workstation ID: [id number] Procedures MDM This is a 46-year-old female [...] different from the original. ED PROVIDER NOTE [facility] EMERGENCY DEPARTMENT NAME: Chioma Raieny AGE: 47 y.o. : 1970 VISIT DATE: 08/24/2017 CSN: [id number] PCP: Alexander Nichols MD Chief Complaint Patient [...] Yellow Clarity, Urine Hazy (A) Clear Specific [place] 1.006 1.005 - 1.025 pH, Urine 7.0 [...] probably remain. 5. Small left adrenal adenoma. [employer] Workstation ID: [id number] Procedures MDM 47-year-old female [...] she did vomit. She was then given VT Phenergan and a dose of Toradol. She [...] Medicine Why: follow up ER visit [address] [address] Contact information for after-discharge care Follow-up information [...] the patient. I discussed the patient with YOUTH ADVOCATE/PA. I agree with the YOUTH ADVOCATE/PA treatment plan. I agree with the YOUTH ADVOCATE/PA plan of care. I agree with the YOUTH ADVOCATE/PA dispo as documented. Formatting of this note may be different from the original. ED PROVIDER NOTE [facility] EMERGENCY DEPARTMENT NAME: Chioma Rainey AGE: 47 y.o. : 1970 VISIT DATE: 03/04/2018 CSN: [id number] PCP: Alexander Nichols MD Chief Complaint Patient [...] Colorless, Yellow Clarity, Urine Clear Clear Specific [place] 1.004 (L) 1.005 - 1.025 pH, Urine [...] Condition Comment Hospitalize Attending Provider or Group: [facility] SACHIN, GENERIC [[id number]] Phone call required?: No Follow-up Information Follow-up [...] different from the original. Alirio Negro MD [facility] Hospitalists History and Physical Patient Name:Chioma Rainey MR #:[id number] :1970 Admit Date: [id number] Physicians: Alexander Nichols MD (Family); No ref. [...] Procedure: EGD; Surgeon: Romain Dumont MD; Location: [facility] Endo; Service: HYSTERECTOMY ORIF PELVIS ORTHOPEDIC SURGERY WISDOM [...] Diagnoses Acute recurrent pancreatitis Rajeev Tinoco MD [address] [place] [address], [place] [address] [facility] Reason Comments Abdominal Pain Pt c/o [...] Sabrina Dee MD, MPH [address] [place] [address] Referral ID Status Reason Start Date Expiration Date V isits Requested Visits Authorized [id number] New Request 12/16/2021 01/10/2023 1 1 Specialty Diagnoses / Procedures Referred By Contac t Referred To Contact Diagnoses Recurrent acute pancreatitis Procedures UPPER EUS VT EGD US GUIDED TRANSMURAL INJXN/FIDUCIAL MARKER Sabrina Dee MD, MPH [address] [place] [address] Referral ID Status Reason Start Date Expiration Date V isits Requested Visits Authorized [id number] New Request 12/16/2021 01/10/2023 1 1 Specialty Diagnoses / Procedures Referred By Contac t Referred To Contact Diagnoses Encounter for screening colonoscopy Procedures SCREENING COLONOSCOPY VT COLON CA SCRN NOT HI RSK IND Sabrina Dee MD, MPH [address] [place] [address] Referral ID Status Reason Start Date Expiration Date V isits Requested Visits Authorized [id number] New Request 12/16/2021 01/10/2023 1 1 Reason Comments Follow-up 6 month follow up Specialty Diagnoses / Procedures Referred By Contac t Referred To Contact Diagnoses Alcohol-induced chronic pancreatitis Procedures UPPER EUS VT ESOPHAGOGASTRODUODENOSCOPY US SCOPE W/ADJ STRXRS Sabrina Dee MD, MPH [address] [place] [phone] Referral ID Status Reason Start Date Expiration Date V isits Requested Visits Authorized [id number] New Request 06/16/2022 07/11/2023 1 1 Reason Comments Follow-up INFORMATION SOURCE (unrecogn ized section and content) DATE CREATED AUTHOR 03/09/2018 [facility] DATE CREATED AUTHOR AUTHOR'S ORGANIZ ATION 03/28/2020 [facility] DATE CREATED AUTHOR AUTHOR'S ORGANIZ ATION 04/08/2021 [facility] DATE CREATED AUTHOR AUTHOR'S ORGANIZ ATION 06/18/2022 [facility] DATE CREATED AUTHOR AUTHOR'S ORGANIZ ATION 04/12/2023 [facility] DATE CREATED AUTHOR AUTHOR'S ORGANIZ ATION 05/05/2023 [facility] DATE CREATED AUTHOR AUTHOR'S ORGANIZ ATION 05/11/2023 [facility] Care Teams (unrecognized sec tion and [...] Active Christa Lopez PA-C Emergency Provider Active Well Services Operator Relationship Specialty Start Date End Date Pineda Troy MD [address] [place] [phone] PCP - Referring 1 Gastroenterology 09/25/17 [facility], Other [address] [place] [address] PCP - General 11/28/19 Well Services Operator Relationship Specialty Start Date End Date Pineda Troy MD [address] [place] [phone] PCP - Referring 1 Gastroenterology 09/25/17 [facility], Other [address] [place] [address] PCP - General 11/28/19 Well Services Operator Relationship Specialty Start Date End Date Pineda Troy MD [address] [place] [phone] PCP - Referring 1 Gastroenterology 09/25/17 [facility], Other [address] [facility] [place] [address] PCP - General 11/28/19 Well Services Operator Relationship Specialty Start Date End Date Pineda Troy MD [address] [place] [phone] PCP - Referring 1 Gastroenterology 09/25/17 [facility], Other [address] [facility] [place] [address] PCP - General 11/28/19 Team Status: Inactive Member Role Status Dates NON STAFF Primary Care Provider Active Agustin Llanes MD Emergency Provider Active Well Services Operator Relationship Specialty Start Date End Date Pineda Troy MD [address] [place] [phone] PCP - Referring 1 Gastroenterology 09/25/17 [facility], Other [address] [facility] [place] [address] PCP - General 11/28/19 Well Services Operator Relationship Specialty Start Date End Date Pineda Troy MD [address] [place] [phone] PCP - Referring 1 Gastroenterology 09/25/17 [facility], Other [address] [place] [address] PCP - General 11/28/19 Team Status: Inactive Member Role Status Dates NON STAFF Primary Care Provider Active Nicole Posadas APRN Emergency Provider Active Team Status: Inactive Member Role Status Dates NON STAFF Primary Care Provider Active Start: April 02, 2023 End: April 02, 2023 Nicole Posadas APRN Emergency Provider Active Start: April 02, 2023 End: April 02, 2023 Team Status: Inactive Member Role Status Dates NON STAFF Primary Care Provider Active Start: April 11, 2023 End: April 12, 2023 Rivera Lopez DO Emergency Provider Active Sta rt: April 11, 2023 End: April 12, 2023 Well Services Operator Relationship Specialty Start Date End Date [facility], [address] PCP - General Family Medicine 03/26/23 Well Services Operator Relationship Specialty Start Date End Date [facility] [address] [place], [place] PCP - General Family Medicine 03/26/23 Team Status: Inactive Member Role Status Dates NON STAFF Primary Care Provider Active Start: April 18, 2023 End: April 18, 2023 Xiang Kellogg MD Emergency Provider Active Star t: April 18, 2023 End: April 18, 2023 Well Services Operator Relationship Specialty Start Date End Date Pineda Troy MD [address] [place] [phone] PCP - Referring 1 Gastroenterology 09/25/17 [facility] [address] [place] [address] PCP - General 11/28/19 Well Services Operator Relationship Specialty Start Date End Date [facility] [address] [place], [place] PCP - General Family Medicine 03/26/23 Goals (unrecognized section and content) Goals may [...] BE BASED ON THE PRIMARY CLINICAL RECORDS. [facility]. provides no warranty or guarantee of the accuracy or completeness of information in this document.
[2023-08-12 06:27] LABS: Basophils Absolute Auto 0.1 10^3/uL (0.0-0.1); Basophils Percent Auto 1.1 % (0.2-2.0); Eosinophils Absolute Auto 0.2 10^3/uL (0.0-0.7); Eosinophils Percent Auto 2.6 % (0.9-7.0); Hematocrit 43.9 % (36.0-48.0); Hemoglobin 14.7 g/dL (12.0-16.0); Immature Granulocytes Abs Auto 0.01 10^3/uL (0.00-0.03); Immature Granulocytes Pct Auto 0.1 % (0.0-0.5); Lymphocytes Absolute Auto 2.9 10^3/uL (1.2-3.8); Lymphocytes Percent Auto 40.9 % (20.5-60.0); Mean Corpuscular HGB Conc 33.5 g/dL (29.9-35.2); Mean Corpuscular Hemoglobin 32.6 pg (26.7-34.0); Mean Corpuscular Volume 97.3 fL (81.0-99.0); Mean Platelet Volume 9.7 fL (9.5-13.5); Monocytes Absolute Auto 0.7 10^3/uL (0.3-0.8); Monocytes Percent Auto 9.3 % (1.7-12.0); Neutrophils Absolute Auto 3.2 10^3/uL (1.4-6.5); Platelet Count 211 10^3/uL (150-450); Red Blood Count 4.51 10^6/uL (4.20-5.40); Red Cell Distribution Width 12.5 % (11.0-15.0)
[2023-08-12] MEDS: METHYLPREDNISOLONE SOD SUCC PF 125 MG/2 ML VIAL IVP (06:44)
[2023-08-12] MEDS: ALBUTEROL SULFATE 2.5 MG/3 ML VIAL NEB IH (06:49)
[2023-08-12 07:03] LABS: Anion Gap 16.3; BUN Creatinine Ratio 13.1; Calcium 10.1 mg/dL (8.5-10.1); Carbon Dioxide 25.6 mmol/L (21.0-32.0); Chloride 105 mmol/L (98-107); Estimated GFR (African America >60 (>=60); Estimated GFR (Non-African Ame >60 (>=60); Glucose 100 mg/dL (74-106); Potassium 3.9 mmol/L (3.5-5.1); Sodium 143 mmol/L (136-145)
== END 2023-08-12 07:58 | disposition home or self-care (01) ==
PROVIDERS: Emergency Provider Emergency Medicine
DX: J44.1 Chronic obstructive pulmonary disease with (acute) exacerbation (principal); F17.200 Nicotine dependence, unspecified, uncomplicated
CPT/HCPCS: 36415; 71045; 80048; 85025; 93005; 94640; 96374; 99285; J2919

== ENCOUNTER 2023-12-08 02:29 | Emergency (ER) | payer OTHER, SELFPAY ==
[2023-12-08 02:32] VITALS: BP 133/83; PULSE 98; TEMP 36.6; O2SAT 99; BMI 21.0
--- OUTSIDE RECORDS SUMMARY | 2023-12-08 02:52 | XMS_ITS | CCD ---
Author Organization [facility] Informat ion Partnership CADDIE SUPERVISOR [facility] Care Team Providers Care Ladies Underwear Operator Name Role Phone MagdalenaDarrickimani Unavailable LI ALEXANDER Unavailable Unavailable COPC SACHIN, GENERIC Unavailable Unavailable COPC SACHIN, GENERIC Unavailable Unavailable ALIRIO NEGRO Unavailable Unavailable LI KEWA Unavailable Unavailable JOANA MENDES Unavailable Unavailable LI, KEWA Unavailable Unavailable ERROL WALTON Unavailable Unavaila ble LIDARRICKWA Unavailable Unavailable KEERTHI NGUYEN Unavailable Unavailable COPC SACHIN, GENERIC Unavailable Unavailable KEERTHI NGUYEN Unavailable Unavailable LI, KEWA Unavailable Unavailable [facility] Unavailable Unav ailable EUGENIA SHELTON Unavailable Unavailable [facility] Unavailable Unav ailable Unavailable Primary Care Provider UnavailAlexander Benson Primary Care Provider [phone] Unavailable Primary Care Provider UnavailMarya Guajardo Unavailable NON STAFF Primary Care Provider UnavailDO Keaton Thompson Emergency Provider [phone] SALMA Amor Emergency Provider SALMA Lopez Emergency Provider [phone] Woodrow ALEXANDER, Pineda Espinal Unavailable [phone] [facility], Other Primary Care Provi mathew NON STAFF Primary Care Provider UnavailMD Agustin Varela Emergency Provider DR TRI HANSON Consulting Unavailable ARIC CHAUDHARY Attending Unavailable ARIC CHAUDHARY Admitting Unavailable [facility] [place] [place] Primary Care Unavailable ARIC CHAUDHARY Consulting Unavailable AGUSTIN MADRIGAL Consulting Unavailable YANNI FRASER Attending Unavailable YANNI FRASER Admitting Unavailable [facility] [place] [place] Primary Care Unavailable HEBERT MCPHERSON Consulting Unavailable AMINATA, DR RAJEEV Chan Consulting Unavailable AMINATA, DR RAJEEV Chan Attending Unavailable AMINATA, DR RAJEEV Chan Admitting Unavailable [facility] [place] [place] Primary Care Unavailable JANNY ., ANKIT BOYKIN Consulting Unavailabl e IGGY ., MONIK Attending Unavailable IGGY ., MONIK Admitting Unavailable GRECHNY ., ANKIT BOYKIN [facility]ing [facility] Unavailable ANNELIESE, NICK Consulting Unavailable JANUSZ ., ARIC Consulting Unavailable AGUSTIN HIGHTOWER Consulting Unavailable SHANITA EUCEDATAN Consulting Unavailable AMINATA, DR RAJEEV Chan Consulting Unavailable BRIANNA, DR SHARON Silveira Attending [facility] REINECK, DR SHARON Silveira Admitting [facility] Primary [facility] Unavailable BRIANNA, DR SHARON Silveira Consulting [facility] HANS ., NAT Consulting Unavailable HANS ., NAT Consulting Unavailable PAY ., DR MACEDO Attending Unavailable PAY ., DR MACEDO Admitting Unavailable [facility] [place] [place] Primary Care Unavailable ANNELIESE, NICK Consulting Unavailable ANNELIESE, NICK Attending Unavailable ANNELIESE, NICK Admitting Unavailable [facility] [place] [place] Primary Care Unavailable MILADIS BARRERA Consulting Unavailable JANUSZ ., ARIC Attending Unavailable JANUSZ ., ARIC Admitting Unavailable JANUSZ ., ARIC Consulting Unavailable [facility] [place] [place] Primary Care Unavailable ION KRUSE Consulting Unavailable YANNI FRASER Attending Unavailable YANNI FRASER Admitting Unavailable JANNY ., ANKIT BOYKIN Consulting [facility] Unavailable LYNNE PERDOMO Consulting Unavailable JANUSZ ., ARIC Attending Unavailable JANUSZ ., ARIC Admitting Unavailable [facility] [place] [place] Primary Care Unavailable JANUSZ ., ARIC Consulting Unavailable DIAB ., ELENITA Consulting Unavailable DIAB ., ELENITA Attending Unavailable DIAB ., ELENITA Admitting Unavailable [facility] [place] [place] Primary Care Unavailable PAY ., DR MACEDO Consulting Unavailable PAY ., DR MACEDO Attending Unavailable PAY ., DR MACEDO Admitting Unavailable [facility] [place] [place] Primary Care Unavailable ANNELIESE, NICK Consulting Unavailable ANNELIESE, NICK Attending Unavailable ANNELIESE, NICK Admitting Unavailable [facility] [place] [place] Primary Care Unavailable AGUSTIN HIGHTOWER Consulting Unavailable AMINATA, DR RAJEEV Chan Consulting Unavailable TANVIR ., DR GRANT Attending Unavailable TANVIR ., DR GRANT Admitting Unavailable [facility] [place] [place] Primary Care Unavailable TANVIR Herron, DR GRANT Consulting Unavailable NON STAFF Primary Care Provider Unavailabl e Saffle, MECHANICAL SYSTEMS ENGINEER Nicole Serrano Emergency Provider NON STAFF Primary Care Provider Unavailabl e Saffle, MECHANICAL SYSTEMS ENGINEER Nicole N Emergency Provider DO Rivera Lopez Emergency Provider SERVICES, [facility] Care Unava ilable BIRMINGHAM, VIC L Attending Unavailable [place] VIC L Attending Unavailable [place], VIC L Referring Unavailable SERVICES, [facility] Unava ilable SERVICES, [facility] Care Unava ilable TABITHA NEWELL Attending Unavailable OSIRIS, TABITHA Chan Attending Unavailable TABITHA NEWELL Referring Unavailable SERVICES, [facility] Care Unava ilable TABITHA NEWELL Attending Unavailable TABITHA NEWELL Referring Unavailable SERVICES, [facility] Unava ilable Services, [facility] Primary Care Provider MD Xiang Kellogg Emergency Provider [phone] Pineda Troy MD Unavailable [phone] [facility], Other Primary Care Provi mathew NON STAFF Primary Care Unavailable Nicole Posadas Admitting Unavailable Nicole Posadas Attending Unavailable NON STAFF Primary Care Unavailable Rivera Lopez Admitting Unavailable Rivera Lopez Attending Unavailable Katharina Nicole N Attending Unavailable NON STAFF Primary Care Unavailable Nicole Posadas Admitting Unavailable NON STAFF Primary Care Unavailable Xiang Kellogg Admitting Unavailable Xiang Kellogg Attending Unavailable SABRINA DEE Attending Unavailflorida e [facility], OTHER Primary Care Un available SABRINA DEE Referring Unavailabl e SELF, SELF Referring Unavailable [facility], OTHER Primary Care Un available SABRINA DEE Attending Unavailflorida Troy MD, Pineda T Unavailable Allergies Allergy Classification Reported Allergen(s) Allergy Type Date of Onset Reaction(s) Facility DOPamine Antagonists (1 source) Metoclopramide Drug Allergy 07-20-19 17 Anxiety [facility] Haloperidol (1 source) Haloperidol Drug Allergy 06-02-19 16 [facility] NSAIDs (1 source) Ibuprofen Drug Allergy 10-31-19 13 Hives, Swelling [facility] Opioid Agonists (2 sources) Morphine Drug Allergy 10-24-19 15 [facility] Penicillins (antibiotic) (1 source) Penicillins Drug Allergy 10-31-19 13 Swelling [facility] Work Phone: (20 sources) haloperidol; Translations: [HALOPERIDOL] Propensity to adverse reactions to drug 06-02-19 16 [facility] (20 sources) ibuprofen; Translations: [IBUPROFEN] Propensity to adverse reactions to drug 10-31-19 13 Hives, Swelling, Anaphylaxis [facility] (6 sources) metoclopramide; Translations: [METOCLOPRAMIDE HCL] Propensity to adverse reactions to drug 07-01-19 17 [facility] (6 sources) penicillin g; Translations: [PENICILLIN G] Propensity to adverse reactions to drug 07-25-19 15 Anaphylaxis [facility] (20 sources) traMADol; Translations: [TRAMADOL] Propensity to adverse reactions to drug 07-25-19 15 [facility] (20 sources) morphine; Translations: [MORPHINE] Drug Allergy 07-16-19 18 [facility] (4 sources) Enoxaparin Drug Allergy 08-23-19 20 Itching, Rash [place], [place] (2 sources) Haloperidol Drug Allergy 10-20-19 18 Swelling [place], [place] (16 sources) Penicillins; Translations: [PENICILLINS] Propensity to adverse reactions to drug 10-31-19 13 Anaphylaxis, Swelling [place], [place] (2 sources) Haloperidol; Translations: [Haldol] Drug Allergy 08-10-19 19 Unknown [facility] (14 sources) fentaNYL; Translations: [Fentanyl] Drug Allergy 09-13-19 21 [facility] (13 sources) Ketorolac; Translations: [KETOROLAC] Drug Allergy 06-13-19 21 [facility] (6 sources) Ketorolac Drug Allergy 12-17-19 22 Hives, Itching [facility] (9 sources) Metoclopramide Drug Allergy 07-01-19 17 Anxiety [facility] (1 source) Ibuprofen Drug Allergy 01-09-20 13 [facility] (1 source) Ketorolac Drug Allergy [facility] (1 source) Morphine Drug Allergy 08-10-19 19 [facility] (1 source) Penicillins Drug allergy (disorder) 01-09-20 13 [facility] (1 source) traMADol Drug Allergy 01-09-20 13 [facility] (4 sources) Penicillins Propensity to adverse reactions to drug 10-10-19 18 Anaphylaxis [facility] (2 sources) Ketorolac trometamol Propensity to adverse reactions to drug 12-17-19 22 Hives, Itching [facility] (1 source) Penicillins Propensity to adverse reactions to drug 10-31-19 13 Swelling [facility] Work Phone: (1 source) Haloperidol Drug Allergy 04-18-19 [facility] (1 source) Ibuprofen Drug Allergy 04-18-19 [facility] (1 source) Morphine Drug Allergy 04-18-19 [facility] (1 source) Penicillins Drug allergy (disorder) 04-18-19 [facility] (1 source) traMADol Drug Allergy 04-18-19 [facility] Medications Current Medications Medication [...] 30 tablet 11 12/01/2019 05/11/2023 Discontinued amylase 603560 unt / lipase 82268 unt / protease 92285 unt delayed release oral capsule (18 sources) Start: 05-11-2023 take 3 capsules by mouth twice daily at mealtime Pancreatic enzymes (Creon) [address] Particles capsule Take 3 capsules by mouth 2 times daily with meals. 180 capsule 11 05/11/2023 Active Start: 12-16-2021 End: 05-11-2023 take 2 capsules by mouth three times daily at mealtime Pancreatic enzymes (Creon) 522[address] Particles capsule Take 2 [...] 08/24/2017 Active ergocalciferol 1.25 mg oral capsule (7 sources) Provitamin D2 Compound Start: 05-11-2023 End: 07-06-2023 take 1 capsule by mouth every week Ergocalciferol 1.25 MG (70432 UT) capsule Take 1 capsule by mouth once a week. 8 capsule 05/11/2023 Active Start: 01-28-2022 End: 03-19-2022 take 1 capsule by mouth every week ergocalciferol 1.25 MG (70922 UT) capsule Take 1 capsule by mouth [...] mg by mouth daily . 0 Active [place] (No Known Home Meds) (1 source) Start: 10-09-2021 [place] (No Known Home Meds) Active October 09, [...] injecti on 4 mg polyethylene glycol 3350 56591 mg powder for oral solution (1 source) [...] mg bupivacaine hydrochloride 2.5 mg/ml injectable solution (3 sources) Amide Local Anesthetic Start: 09-08-2023 End: 09-08-2023 50 mg (20 mL), Infiltration, ONCE (IN CLINIC), 1 dose, On Thu09/08/23 at 0715 Start: 08-12-2022 End: 08-12-2022 Bupivacaine (MARCAINE) injec tion 50 mg Start: 01-28-2022 End: 01-28-2022 bupivacaine [...] 05-14-2017 fentaNYL (SUBLIMAZE) injecti on 50 mcg 1 ml HYDROmorphone hydrochloride 1 mg/ml cartridge (9 sources) Opioid Agonist Start: 09-08-2023 End: 09-09-2023 take 0.5 mg intravenously every three hours as needed 0.5 mg, Intravenous, EVERY 3 HOURS NEEDED, Starting on Thu09/08/23 at 0821, Until Thu09/09/23 at 0235, Severe pain requiring analgesia Start: 08-12-2022 End: 08-12-2022 HYDROmorphone (DILAUDID) inj ection 0.5 mg Start: 03-26-2020 End: 03-26-2020 HYDROmorphone (DILAUDID) inj ection 1 mg Start: 08-24-2019 HYDROmorphone (DILAUDID) injection 0.5 mg Start: 08-23-2019 End: 08-24-2019 HYDROmorphone (DILAUDID) inj ection 0.25 mg Start: 05-14-2017 End: 05-15-2017 take 0.5 mg intravenous route every four hours as needed HYDROmorphone (DILAUDID) injection 0.5 mg iopamidol (2 sources) Radiographic Contrast Agent Start: [...] ml triamcinolone acetonide 40 mg/ml prefilled syringe (3 sources) Corticosteroid Start: 09-08-2023 End: 09-08-2023 80 mg, Infiltration, ONCE, 1 dose, On Thu09/08/23 at 0715 Start: 08-12-2022 End: 08-12-2022 triamcinolone (KENALOG-40) i njection 80 mg Start: 01-28-2022 End: 01-28-2022 triamcinolone (KENALOG-40) i njection 80 mg Problems Active Problems Problem Classification Problem Date Documented Da te Episodic/Chronic Administrative/social admission (6 sources) Drug seeking behavior ; Translations: [Malingerer [conscious simulation]] 10-09-2021 Episodic Alcohol-related disorders (9 sources) History of alcohol abuse; Translations: [Alcohol [...] [Gastro-esophageal reflux disease without esophagitis] 05-11-2023 Chronic Fluid and electrolyte disorders (2 sources) Dehydration; Translations: [Hypokalemia] Onset: 2 Episodic Mood disorders (13 sources) Bipolar disorder; Translations: [Depressive disorder] Onset: 5 09-07-2014 Chronic Noninfectious gastroenteritis (3 sources) Noninfective gastroenteritis and colitis, unspecified; Translations: [Noninfective gastroenteritis and colitis, unspecified] Onset: 8 Episodic Osteoporosis (3 sources) Osteoporosis; Translations: [Other osteoporosis without current pathological fracture] Chronic Other aftercare (1 source) Other correction (current) drug therapy; Translations: [OTH ROOF FOREMAN CURRENT DRUG THERAPY] Onset: 3 Episodic Other [...] (1 source) Hypercalcemia; Translations: [Hypercalcemia] 04-18-2023 Chronic Pancreatic disorders (20 sources) Chronic pancreatitis; [...] Episodic Complication of device; implant or graft (8 sources) Breakdown (mechanical) of cranial or spinal infusion catheter, initial encounter; Translations: [Mechanical complication due to other implant and internal device, not elsewhere classified] Onset: 04-23-2016 Resolved: 04-24-2016 04-24-2016 Episodic Complications of surgical procedures or medical care (16 sources) Malfunction of gastrostomy tube; Translations: [Gastrostomy malfunction] Onset: 06-25-2015 Resolved: 06-09-2016 06-09-2016 Episodic Diseases of white blood cells (8 sources) Neutrophilia; Translations: [Disorder of white blood cells, unspecified] Onset: 06-25-2015 Resolved: 06-28-2015 06-28-2015 Chronic Immunizations and screening for infectious disease (1 source) Contact with and (suspected) exposure to other viral communicable diseases Onset: 03-19-2021 Resolved: 03-19-2021 Episodic Nausea and vomiting (20 sources) Nausea and vomiting; Translations: [Nausea with vomiting, unspecified] Onset: 08-30-2014 Resolved: 06-09-2016 11-30-2014 Episodic Other disorders of stomach and duodenum (8 sources) Cyclical vomiting syndrome; Translations: [Cyclical vomiting syndrome unrelated to migraine] Onset: 06-21-2015 06-21-2015 Episodic Other gastrointestinal disorders (16 sources) Diarrhea; Translations: [Diarrhea, unspecified] Onset: 06-30-2015 Resolved: 04-24-2016 07-06-2019 Episodic Other gastrointestinal disorders (3 sources) Diarrhea, unspecified; Translations: [Diarrhea, unspecified] Onset: 08-24-2017 Episodic Other gastrointestinal disorders (1 source) Constipation, unspecified; Translations: [CONSTIPATION UNSPECIFIED] Onset: 08-28-2021 Episodic Other screening for suspected conditions (not mental disorders or infectious disease) (20 sources) Patient encounter status; Translations: [Encounter for screening for malignant neoplasm of colon] Onset: 07-06-2015 Resolved: 06-09-2016 Episodic Pancreatic disorders (20 sources) Alcohol-induced pancreatitis; Translations: [Acute pancreatitis] Onset: 06-05-2015 Resolved: 06-09-2016 06-30-2016 Episodic Residual codes; unclassified (8 sources) Tobacco use and exposure - finding; [...] Test Name Value Interpretation Reference Range Facility CBC with Diffon 09-29-2023 Abs. Basophil 0.05 k/uL Normal 0.00-0.20 [facility] Comment on above: Performed By: #### C P, CDP, LIP #### [address] [place] [address] Packing Tractor Machine Operator: Ion Jasso MD Abs.Imm.Granulocyte <0.03 Normal 0.00-0.30 [facility] Comment on above: Performed By: #### C P, CDP, LIP #### [address] [place] [address] Packing Tractor Machine Operator: Ion Jasso MD Abs.Neutrophil (Seg) 8.10 k/uL Normal 1.50-8.10 [facility] Comment on above: Performed By: #### C P, CDP, LIP #### [address] [place] [address] Packing Tractor Machine Operator: Ion Jasso MD Basophils/100 WBC (Bld) 0 % Normal 0-2 [facility] Comment on above: Performed By: #### C P, CDP, LIP #### [address] [place], [place] [address] Packing Tractor Machine Operator: Ion Jasso MD Eosinophils (Bld) [#/Vol] 0.05 10*3/uL Normal 0.00-0.44 [facility] Comment on above: Performed By: #### C P, CDP, LIP #### [address] [place], [facility] Packing Tractor Machine Operator: Ion Jasso MD Eosinophils/100 WBC (Bld) 0 % Low 1-4 [facility] Comment on above: Performed By: #### C P, CDP, LIP #### [address] [place] [id number] Packing Tractor Machine Operator: Ion Jasso MD Erythrocyte distribution width (RBC) [Ratio] 12.9 % Normal 11.8-14.4 [facility] Comment on above: Performed By: #### C P, CDP, LIP #### [facility] [address] [place] [address] Packing Tractor Machine Operator: Ion Jasso MD Hematocrit (Bld) [Volume fraction] 40.3 % Normal 36.3-47.1 [facility] Comment on above: Performed By: #### C P, CDP, LIP #### [facility] [address] [place] [address] Packing Tractor Machine Operator: Ion Jasso MD Hemoglobin (Bld) [Mass/Vol] 14.2 g/dL Normal 11.9-15.1 [facility] Comment on above: Performed By: #### C P, CDP, LIP #### [address] [place] [id number] Packing Tractor Machine Operator: Ion Jasso MD Immature granulocytes/100 WBC (Bld) 0 % Normal 0 [facility] Comment on above: Performed By: #### C P, CDP, LIP #### [address] [place] [address] Packing Tractor Machine Operator: Ion Jasso MD Lymphocytes (Bld) [#/Vol] 2.18 10*3/uL Normal 1.10-3.70 [facility] Comment on above: Performed By: #### C P, CDP, LIP #### [facility] [address] [place], [facility] Packing Tractor Machine Operator: Ion Jasso MD Lymphocytes/100 WBC (Bld) 19 % Low 24-43 [facility] Comment on above: Performed By: #### C P, CDP, LIP #### [facility] [address] [place] [address] Packing Tractor Machine Operator: Ion Jasso MD MCH (RBC) [Entitic mass] 33.8 pg High 25.2-33.5 [facility] Comment on above: Performed By: #### C P, CDP, LIP #### [address] [place], [place] [id number] Packing Tractor Machine Operator: Ion Jasso MD MCHC (RBC) [Mass/Vol] 35.2 g/dL High 28.4-34.8 [facility] Comment on above: Performed By: #### C P, CDP, LIP #### [address] [place], [facility] Packing Tractor Machine Operator: Ion Jasso MD MCV (RBC) [Entitic vol] 96.0 fL Normal 82.6-102.9 [facility] Comment on above: Performed By: #### C P, CDP, LIP #### [address] [place], [facility] Packing Tractor Machine Operator: Ion Jasso MD Monocytes (Bld) [#/Vol] 0.94 10*3/uL Normal 0.10-1.20 [facility] Comment on above: Performed By: #### C P, CDP, LIP #### [address] [place], [facility] Packing Tractor Machine Operator: Ion Jasso MD Monocytes/100 WBC (Bld) 8 % Normal 3-12 [facility] Comment on above: Performed By: #### C P, CDP, LIP #### [address] [place], [facility] Packing Tractor Machine Operator: Ion Jasso MD Neutrophil (Seg) 73 % High 36-65 [facility] Comment on above: Performed By: #### C P, CDP, LIP #### [address] [place] [address] Packing Tractor Machine Operator: Ion Jasso MD NRBC Automated 0.0 per 100 WBC Normal 0.0 [facility] Comment on above: Performed By: #### C P, CDP, LIP #### [address] [place], [facility] Packing Tractor Machine Operator: Ion Jasso MD Platelet mean volume (Bld) [Entitic vol] 9.4 fL Normal 8.1-13.5 [facility] Comment on above: Performed By: #### C P, CDP, LIP #### [facility] [address] [place], [facility] Packing Tractor Machine Operator: Ion Jasso MD Platelets (Bld) [#/Vol] 193 10*3/uL Normal 138-453 [facility] Comment on above: Performed By: #### C P, CDP, LIP #### [address] [place], [facility] Packing Tractor Machine Operator: Ion Jasso MD RBC (Bld) [#/Vol] 4.20 10*6/uL Normal 3.95-5.11 [facility] Comment on above: Performed By: #### C P, CDP, LIP #### [address] [place], [facility] Packing Tractor Machine Operator: Ion Jasso MD WBC (Bld) [#/Vol] 11.3 10*3/uL Normal 3.5-11.3 [facility] Comment on above: Performed By: #### C P, CDP, LIP #### [address] [place], [place] [address] Packing Tractor Machine Operator: Ion Jasso MD Comp Metabolic Profon 2023 Albumin [Mass/Vol] 4.4 g/dL Normal 3.5-5.2 [facility] Comment on above: Performed By: #### C P, CDP, LIP #### [facility] [address] [place] [address] Packing Tractor Machine Operator: Ion Jasso MD Albumin/Glob Ratio 1.9 Normal 1.0-2.5 [facility] Comment on above: Performed By: #### C P, CDP, LIP #### [facility] [address] [place], [place] [id number] Packing Tractor Machine Operator: Ion Jasso MD Alkaline Phos 123 U/L High 35-104 [facility] Comment on above: Performed By: #### C P, CDP, LIP #### [facility] [address] [place], [place] [id number] Packing Tractor Machine Operator: Ion Jasso MD ALT [Catalytic activity/Vol] 15 U/L Normal 5-33 [facility] Comment on above: Performed By: #### C P, CDP, LIP #### [facility] [address] [place], [place] [id number] Packing Tractor Machine Operator: Ion Jasso MD Anion gap [Moles/Vol] 10 mmol/L Normal 9-17 [facility] Comment on above: Performed By: #### C P, CDP, LIP #### [facility] [address] [place], [place] [id number] Packing Tractor Machine Operator: Ion Jasso MD AST [Catalytic activity/Vol] 21 U/L Normal <32 [facility] Comment on above: Performed By: #### C P, CDP, LIP #### [address] [place], [place] [id number] Packing Tractor Machine Operator: Ion Jasso MD Bilirubin [Mass/Vol] 0.3 mg/dL Normal 0.3-1.2 [facility] Comment on above: Performed By: #### C P, CDP, LIP #### [facility] [address] [place], [place] [id number] Packing Tractor Machine Operator: Ion Jasso MD BUN/CRE Ratio 13 Normal 9-20 [facility] Comment on above: Performed By: #### C P, CDP, LIP #### [facility] [address] [place], [place] [id number] Packing Tractor Machine Operator: Ion Jasso MD Calcium [Mass/Vol] 10.0 mg/dL Normal 8.6-10.4 [facility] Comment on above: Performed By: #### C P, CDP, LIP #### [facility] [address] [place], [place] [id number] Packing Tractor Machine Operator: Ion Jasso MD Chloride [Moles/Vol] 104 mmol/L Normal 98-107 [facility] Comment on above: Performed By: #### C P, CDP, LIP #### [facility] [address] [place], [place] [phone] Packing Tractor Machine Operator: Ion Jasso MD CO2 [Moles/Vol] 24 mmol/L Normal 20-31 [facility] Comment on above: Performed By: #### C P, CDP, LIP #### [facility] [address] [place], [place] [id number] Packing Tractor Machine Operator: Ion Jasso MD Creatinine [Mass/Vol] 0.8 mg/dL Normal 0.5-0.9 [facility] Comment on above: Performed By: #### C P, CDP, LIP #### [facility] [place] [address] [place] [address] Packing Tractor Machine Operator: Ion Jasso MD GFR/1.73 sq M.predicted among non-blacks MDRD (S/P/Bld) [Vol rate/Area] 88 mL/min/{1.73_m2} Normal >60 [facility] Comment on above: Result Comment: These results are not intended for use in patients <18 years of age. eGFR results are calculated without a race factor using the 2020 CKD-EPI equation. Careful clinical correlation is recommended, particularly when comparing to results calculated using previous equations. The CKD-EPI equation is less accurate in patients with extremes of muscle mass, extra-renal metabolism of creatine, excessive creatine ingestion, or following therapy that affects renal tubular secretion. Performed By: #### C P, CDP, LIP #### [facility] [address] [place] [address] Packing Tractor Machine Operator: Ion Jasso MD Glucose [Mass/Vol] 126 mg/dL High 70-99 [facility] Comment on above: Performed By: #### C P, CDP, LIP #### [facility] [address] [place] [address] Packing Tractor Machine Operator: Ion Jasso MD Potassium [Moles/Vol] 3.5 mmol/L Low 3.7-5.3 [facility] Comment on above: Performed By: #### C P, CDP, LIP #### [facility] [address] [place], [place] [phone] Packing Tractor Machine Operator: Ion Jasso MD Protein [Mass/Vol] 6.7 g/dL Normal 6.4-8.3 [facility] Comment on above: Performed By: #### C P, CDP, LIP #### [address] [place], [place] [id number] Packing Tractor Machine Operator: Ion Jasso MD Sodium [Moles/Vol] 138 mmol/L Normal 135-144 [facility] Comment on above: Performed By: #### C P, CDP, LIP #### [address] [place], [place] [id number] Packing Tractor Machine Operator: Ion Jasso MD Urea nitrogen [Mass/Vol] 10 mg/dL Normal 6-20 [facility] Comment on above: Performed By: #### C P, CDP, LIP #### [facility] [address] [place] [address] Dr[place], [place] [id number] Packing Tractor Machine Operator: Ion Jasso MD Lipaseon 9 Lipase [Catalytic activity/Vol] 141 U/L High 13-60 [facility] Comment on above: Performed By: #### C P, CDP, LIP #### [facility] [address] [place] [address] Packing Tractor Machine Operator: Ion Jasso MD UA w/Reflex Cultureon 2023 Bilirubin, SemiQt,Ur Negative Normal NEG [facility] Comment on above: Performed By: #### U AX, UMICAO #### [facility] [address] [place], [place] [phone] Packing Tractor Machine Operator: Ion Jasso MD Blood, Urine Negative Normal NEG [facility] Comment on above: Performed By: #### U AX, UMICAO #### [facility] [address] [place], [place] [phone] Packing Tractor Machine Operator: Ion Jasso MD Clarity (U) Clear Normal CLEAR [facility] Comment on above: Performed By: #### U AX, UMICAO #### [facility] [address] [place], [place] [phone] Packing Tractor Machine Operator: Ion Jasso MD Color (U) Yellow Normal YEL [facility] Comment on above: Performed By: #### U AX, UMICAO #### [facility] [address] [place], [place] [phone] Packing Tractor Machine Operator: Ion Jasso MD Glucose Ql (U) Negative Normal NEG [facility] Comment on above: Performed By: #### U AX, UMICAO #### [address] [place], [place] [id number] Packing Tractor Machine Operator: Ion Jasso MD Ketones Ql (U) Negative Normal NEG [facility] Comment on above: Performed By: #### U AX, UMICAO #### [facility] [address] [place], [place] [phone] Packing Tractor Machine Operator: Ion Jasso MD Leukocyte esterase Test strip Ql (U) Negative Normal NEG [facility] Comment on above: Performed By: #### U AX, UMICAO #### [facility] [address] [place], [place] [phone] Packing Tractor Machine Operator: Ion Jasso MD Nitrite,Ur Negative Normal NEG [facility] Comment on above: Performed By: #### U AX, UMICAO #### [facility] [address] [place], [place] [phone] Packing Tractor Machine Operator: Ion Jasso MD PH,Ur 6.0 Normal 5.0-9.0 [facility] Comment on above: Performed By: #### U AX, UMICAO #### [facility] [address] [place], [place] [phone] Packing Tractor Machine Operator: Ion Jasso MD Protein Ql (U) Negative Normal NEG [facility] Comment on above: Performed By: #### U AX, UMICAO #### [facility] [place] [address] [place], [place] [phone] Packing Tractor Machine Operator: Ion Jasso MD Spec. Mcdonough,Ur >1.030 High 1.010-1.02 0 [facility] Comment on above: Performed By: #### U AX, UMICAO #### [facility] [address] [place] [address] Dr. [place], [place] 0389183 Packing Tractor Machine Operator: Ion Jasso MD Urobilinogen,Ur Normal Normal 0.0-1.0 [facility] Comment on above: Performed By: #### U AX, UMICAO #### [address] [place], [place] [phone] Packing Tractor Machine Operator: Ion Jasso MD Urinalysis,Microon 4 Bacteria TRACE Abnormal NONE [facility] Comment on above: Performed By: #### U AX, UMICAO #### [facility] [address] [place], [place] [phone] Packing Tractor Machine Operator: Ion Jasso MD Epithelial cells LM Ql (Urine sed) 2 TO 5 Normal 0-25 [facility] Comment on above: Performed By: #### U AX, UMICAO #### [facility] [address] [place], [place] [phone] Packing Tractor Machine Operator: Ion Jasso MD Urine RBC's 0 TO 2 Normal 0-2 [facility] Comment on above: Performed By: #### U AX, UMICAO #### [facility] [address] [place] [address] Packing Tractor Machine Operator: Ion Jasso MD Urine WBC's 0 TO 2 Normal 0-5 [facility] Comment on above: Performed By: #### U AX, UMICAO #### [facility] [address] [place] [address] Packing Tractor Machine Operator: Ion Jasso MD UPPER EUSon 09-08-[address] [facility] Gastroenterology Patient Name: Chioma Rainey Procedure Date: 09/08/2023 7:35 AM Date of : 1970 Admit Type: Outpatient Age: 53 Room: EUS Proc Room 01 Gender: Female Note Status: Finalized Attending MD: Sabrina Dee MD, MPH, [id number] Procedure: Upper EUS Indications: Chronic pancreatitis, Celiac plexus block for pain secondary to chronic pancreatitis Providers: Sabrina Dee MD, MPH (Doctor), Marybel Jones, RN (Nurse), Love Zeng RN (Nurse), LOW Marvin (Anesthesia Staff) Referring MD: Sabrina Dee MD, MPH (Referring MD) Medicines: Monitored Anesthesia Care Complications: No immediate complications. Procedure: Pre-Anesthesia Assessment: - Prior to the procedure, a History and Physical was performed, and patient medications and allergies were reviewed. The risks and benefits of the procedure and the sedation options and risks were discussed with the patient. All questions were answered and informed consent was obtained. Patient identification and proposed procedure were verified by the physician in the procedure room at 07:35 AM. Mental Status Examination: normal. Airway Examination: normal oropharyngeal airway and neck mobility. Respiratory Examination: clear to auscultation. CV Examination: normal and Abdominal Examination: +BS, soft, non-tender, no masses. Prophylactic Antibiotics: The patient requires prophylactic antibiotics. [...] re-assessed for adequacy to receive sedatives. The physical status of the patient was re-assessed after the procedure. After obtaining informed consent, the endoscope was passed under direct vision. Throughout the procedure, the patient's blood pressure, pulse, and oxygen saturations were monitored continuously. The GF-UCT [id number] was introduced through the mouth, and advanced to the second part of duodenum. The upper EUS was accomplished without difficulty. The patient tolerated the procedure well. Findings: ENDOSCOPIC FINDING: : A medium-sized hiatal hernia was present. No gross lesions were noted in the entire examined stomach. The duodenal bulb and second portion of the duodenum were normal. ENDOSONOGRAPHIC FINDING: : Pancreatic parenchymal abnormalities were noted in the entire pancreas. These consisted of hyperechoic strands. Celiac plexus block was performed. The region of the celiac plexus and celiac ganglia was identified endosonographically with Color Doppler imaging, using the take-off of the celiac trunk from the anterior aspect of the aorta as the main anatomical landmark. Color Doppler guidance was also used to confirm a lack of significant vascular structures within the injection needle path. Using a transgastric approach, a 22 gauge needle was advanced to an injection site located anterior to the celiac artery take-off. Needle aspiration was performed prior to injection to exclude entry into a blood vessel. A total of 20 mL of 0.25% bupivacaine and 80 mg of triamcinolone (40 mg/mL) were injected for the celiac plexus block. The needle was then withdrawn. Endosonographic imaging in the entire pancreas showed no mass, pancreas divisum, pancreatic duct changes or stones. There was dilation in the main bile duct which measured up to 10 mm. Impression: - Medium-sized hiatal hernia. - No gross lesions in the entire stomach. - Normal duodenal bulb and second portion of the (more content not included)... LAB, [facility] Radiology Study observation (narrative) [facility] Alanine aminotransferase [En zymatic activity/volume] in Serum or PlasmaOrdered By: Xiang Kellogg on 04-18-2023 ALT [Catalytic activity/Vol] 9 U/L Normal 7-52 [facility] Comment on above: Performed By: #### L IPASE, CBC, CMP, HS TROP #### [facility] [address] [place] [address] Albumin [Mass/volume] in Ser um or Plasma by Bromocresol green (BCG) dye binding methoOrdered By: Xiang Kellogg on 04-18-2023 Albumin BCG dye [Mass/Vol] 4.5 g/dL 3.5-5.7 [facility] Alkaline phosphatase [Enzyma tic activity/volume] in Serum or PlasmaOrdered By: Xinag Kellogg on 04-18-2023 ALP [Catalytic activity/Vol] 107 U/L High 34-104 [facility] Comment on above: Performed By: #### L IPASE, CBC, CMP, HS TROP #### [address] Amylase [Enzymatic activity/ volume] in Serum or PlasmaOrdered By: Xiang Kellogg on 04-18-2023 Amylase [Catalytic activity/Vol] 72 U/L Normal 29-103 [facility] Comment on above: Performed By: #### L IPASE, CBC, CMP, HS TROP #### [address] Aspartate aminotransferase [ Enzymatic activity/volume] in Serum or PlasmaOrdered By: Xiang Kellogg on 04-18-2023 AST [Catalytic activity/Vol] 14 U/L Normal 13-39 [facility] Comment on above: Performed By: #### L IPASE, CBC, CMP, HS TROP #### [address] Automated basophil %Ordered By: Xiang Kellogg on 04-18-2023 Basophils/100 WBC (Bld) 0.8 % Normal . [facility] Comment on above: Performed By: #### L IPASE, CBC, CMP, HS TROP #### [facility] [address] [place] [address] Automated basophil countOrde red By: Xiang Kellogg on 04-18-2023 Basophils (Bld) [#/Vol] 0.1 10*3/uL Normal 0.0-0.2 [facility] Comment on above: Result Comment: PERF ORMED BY: [address] [address] PATHOLOGIST HEEL BLACKER PAULA RODRIGUES M.D. Performed By: #### L IPASE, CBC, CMP, HS TROP #### [address] Automated blood monocyte cou ntOrdered By: Xiang Kellogg on 04-18-2023 Monocytes (Bld) [#/Vol] 0.6 10*3/uL Normal 0.0-0.8 [facility] Comment on above: Performed By: #### L IPASE, CBC, CMP, HS TROP #### [address] Automated eosinophil %Ordere d By: Xiang Kellogg on 04-18-2023 Eosinophils/100 WBC (Bld) 0.2 % Normal . [facility] Comment on above: Performed By: #### L IPASE, CBC, CMP, HS TROP #### [address] Automated eosinophil countOr dered By: Xiang Kellogg on 04-18-2023 Eosinophils (Bld) [#/Vol] 0.0 10*3/uL Normal 0.0-0.45 [facility] Comment on above: Performed By: #### L IPASE, CBC, CMP, HS TROP #### [address] Automated monocyte %Ordered By: Xiang Kellogg on 04-18-2023 Monocytes/100 WBC (Bld) 5.4 % Normal . [facility] Comment on above: Performed By: #### L IPASE, CBC, CMP, HS TROP #### [address] Automated neutrophil %Ordere d By: Xiang Kellogg on 04-18-2023 Neutrophils/100 WBC (Bld) 80.8 % Normal . [facility] Comment on above: Performed By: #### L IPASE, CBC, CMP, HS TROP #### [address] Basic Metabolic Panelon 04-09 Creatinine Clr Calc Pharmacy 64.32 Normal [facility] Comment on above: Performed By: #### L IPASE, CBC, CMP, HS TROP #### [facility] [address] [place] [address] GFR/1.73 sq M.predicted MDRD (S/P/Bld) [Vol rate/Area] mL/min/{1.73_m2} Normal [facility] Comment on above: Performed By: #### L IPASE, CBC, CMP, HS TROP #### [facility] [address] [place] [address] Bilirubin.direct [Mass/volum e] in Serum or PlasmaOrdered By: Xiang Kellogg on 04-18-2023 Bilirubin.direct [Mass/Vol] 0.00 mg/dL 0.03-0.18 [facility] Comment on above: If the DBIL is less than 0.1, IBIL is not able to becalculated. Bilirubin.total [Mass/volume ] in Serum or PlasmaOrdered By: Xiang Kellogg on 04-18-2023 Bilirubin [Mass/Vol] 0.3 mg/dL Normal 0.3-1.0 [facility] Comment on above: Performed By: #### L IPASE, CBC, CMP, HS TROP #### [facility] [address] [place] [address] CT abdomen pelvis wo conon 0 04-18-2023 CT abdomen pelvis wo con [facility] [place] [address] [place] [address] CT Scan Report Signed Patient: Chioma Arciniega MR#: [id number] : 1970 Acct:[id number] Age/Sex: 52 / F ADM Date: 04/18/23 Loc: ER Room: Type: [facility] ER Attending Dr: Copies to: Xiang Kellogg [...] Rajeev Ulloa M.D.04/18/2023 5:07 PM Dictation Location: [place] [address] Transcribed By: [facility] 04/18/231706 Dictated By: Rajeev Ulloa II, MD 04/18/231700 Signed By: 04/18/231706 Normal [facility] Calcium [Mass/volume] in Ser um or PlasmaOrdered By: Xiang Kellogg on 04-18-2023 Calcium [Mass/Vol] 11.1 mg/dL High 8.6-10.3 [facility] Comment on above: Performed By: #### L IPASE, CBC, CMP, HS TROP #### [address] Carbon dioxide, total [Moles /volume] in Serum or PlasmaOrdered By: Xiang Kellogg on 04-18-2023 CO2 [Moles/Vol] 30.2 mmol/L Normal 21.0-31.0 [facility] Comment on above: Performed By: #### L IPASE, CBC, CMP, HS TROP #### [address] Chloride [Moles/volume] in S erika or PlasmaOrdered By: Xiang Kellogg on 04-18-2023 Chloride [Moles/Vol] 103 mmol/L Normal 98-107 [facility] Comment on above: Performed By: #### L IPASE, CBC, CMP, HS TROP #### [address] Complete Blood Count Auto Di ffon 04-18-2023 Mean Corpuscular HGB Conc 34.3 g/dL Normal 32.0-35.0 [facility] Comment on above: Performed By: #### L IPASE, CBC, CMP, HS TROP #### [address] Monocytes/100 WBC (Bld) 16.25 % Normal 0.00-20.00 [facility] Comment on above: Performed By: #### L IPASE, CBC, CMP, HS TROP #### [address] NRBC% 0.0 /100{WBC} Normal 0-0.5 [facility] Comment on above: Performed By: #### L IPASE, CBC, CMP, HS TROP #### [address] Creatinine [Mass/volume] in Serum or PlasmaOrdered By: Xiang Kellogg on 04-18-2023 Creatinine [Mass/Vol] 0.80 mg/dL Normal 0.60-1.20 [facility] Comment on above: Performed By: #### L IPASE, CBC, CMP, HS TROP #### [address] Erythrocyte distribution wid th [Ratio] by Automated countOrdered By: Xiang Kellogg on 04-18-2023 Erythrocyte distribution width (RBC) [Ratio] 13.4 % Normal 11.9-15.3 [facility] Comment on above: Performed By: #### L IPASE, CBC, CMP, HS TROP #### [facility] [address] [place] [address] [place] Erythrocytes [#/volume] in B lood by Automated countOrdered By: Xiang Kellogg on 04-18-2023 RBC (Bld) [#/Vol] 4.35 10*6/uL Normal 3.60-5.00 [facility] Comment on above: Performed By: #### L IPASE, CBC, CMP, HS TROP #### [facility] [address] [place] [address] [place] Ethanol [Mass/volume] in Ser um or PlasmaOrdered By: Xiang Kellogg on 04-18-2023 Ethanol [Mass/Vol] mg/dL Normal [facility] Comment on above: Performed By: #### L IPASE, CBC, CMP, HS TROP #### [facility] [address] [place] [address] Ethanol [Mass/Vol] TNP [facility] Comment on above: Test not performed Ethyl Alcohol Profileon 04-09 Percent Ethanol Not performed Normal [facility] Comment on above: Result Comment: PERF ORMED BY: [place] [address] PATHOLOGIST HEEL BLACKER PAULA RODRIGUES M.D. Performed By: #### L IPASE, CBC, CMP, HS TROP #### [facility] [address] [place] [address] [place] Glucose [Mass/volume] in Ser um or PlasmaOrdered By: Xiang Kellogg on 04-18-2023 Glucose [Mass/Vol] 108 mg/dL High 70-100 [facility] Comment on above: ADA recommended refe rence rangeRandom Glucose Reference Range is dependent on time and content of last meal. Glucose of more than 200 mg/dL in a nonstressed, ambulatory subject supports the diagnosis of Diabetes Mellitus. Result Comment: [place] om Glucose Reference Range is dependent on time and content of last meal. Glucose of more than 200 mg/dL in a nonstressed, ambulatory subject supports the diagnosis of Diabetes Mellitus. ADA recommended reference range Performed By: #### L IPASE, CBC, CMP, HS TROP #### [address] Hematocrit [Volume Fraction] of Blood by Automated countOrdered By: Xiang Kellogg on 04-18-2023 Hematocrit (Bld) [Volume fraction] 41.6 % Normal 34.0-46.4 [facility] Comment on above: Performed By: #### L IPASE, CBC, CMP, HS TROP #### [address] Hemoglobin [Mass/volume] in BloodOrdered By: Xiang Kellogg on 04-18-2023 Hemoglobin (Bld) [Mass/Vol] 14.3 g/dL Normal 11.8-15.4 [facility] Comment on above: Performed By: #### L IPASE, CBC, CMP, HS TROP #### [address] Hepatic Panelon 04-18-2023 Albumin [Mass/Vol] 4.5 g/dL Normal 3.5-5.7 [facility] Comment on above: Performed By: #### L IPASE, CBC, CMP, HS TROP #### [address] Bilirubin,Indirect 0.3 mg/dL Normal [facility] Comment on above: Performed By: #### L IPASE, CBC, CMP, HS TROP #### [address] Bilirubin.indirect [Mass/Vol] 0.00 mg/dL Low 0.03-0.18 [facility] Comment on above: Result Comment: If t he DBIL is less than 0.1, IBIL is not able to be calculated. Performed By: #### L IPASE, CBC, CMP, HS TROP #### [address] Leukocytes [#/volume] correc aurelia for nucleated erythrocytes in Blood by Automated counOrdered By: Xiang Kellogg on 04-18-2023 WBC corrected for nucl RBC Auto (Bld) [#/Vol] 12.1 10*3/uL 3.8-11.6 [facility] Leukocytes [#/volume] in Blo od by Automated countOrdered By: Xiang Kellogg on 04-18-2023 WBC (Bld) [#/Vol] 12.1 10*3/uL High 3.8-11.6 [facility] Comment on above: Performed By: #### L IPASE, CBC, CMP, HS TROP #### [place] [address] [place] Lipase [Enzymatic activity/v olume] in Serum or PlasmaOrdered By: Xiang Kellogg on 04-18-2023 Lipase [Catalytic activity/Vol] 47.0 U/L Normal 11.0-82.0 [facility] Comment on above: Result Comment: PERF ORMED BY: [place] [address] PATHOLOGIST HEEL BLACKER PAULA RODRIGUES M.D. Performed By: #### L IPASE, CBC, CMP, HS TROP #### [place] [address] [place] Lymphocytes [#/volume] in Bl ood by Automated countOrdered By: Xiang Kellogg on 04-18-2023 Lymphocytes (Bld) [#/Vol] 1.6 10*3/uL Normal 1.00-4.8 [facility] Comment on above: Performed By: #### L IPASE, CBC, CMP, HS TROP #### [place] [address] [place] Lymphocytes/100 leukocytes i n Blood by Automated countOrdered By: Xiang Kellogg on 04-18-2023 Lymphocytes/100 WBC (Bld) 12.8 % Normal . [facility] Comment on above: Performed By: #### L IPASE, CBC, CMP, HS TROP #### [place] [address] [place] MCH [Entitic mass] by Automa aurelia countOrdered By: Xiang Kellogg on 04-18-2023 MCH (RBC) [Entitic mass] 32.7 pg Normal 24.7-34.3 [facility] Comment on above: Performed By: #### L IPASE, CBC, CMP, HS TROP #### [facility] [address] MCHC Auto (RBC) [Mass/Vol]Or dered By: Xiang Kellogg on 04-18-2023 MCHC (RBC) [Mass/Vol] 34.3 g/dL 32.0-35.0 [facility] MCV [Entitic volume] by Auto mated countOrdered By: Xiang Kellogg on 04-18-2023 MCV (RBC) [Entitic vol] 95.5 fL Normal 80-100 [facility] Comment on above: Performed By: #### L IPASE, CBC, CMP, HS TROP #### [facility] [address] [place] [address] Monocyte distribution width [Entitic volume] in Blood by AutomatedOrdered By: Xiang Kellogg on 04-18-2023 Monocyte distribution width Auto (Bld) [Entitic vol] 16.25 % 0.00-20.00 [facility] Neutrophils [#/volume] in Bl ood by Automated countOrdered By: Xiang Kellogg on 04-18-2023 Neutrophils (Bld) [#/Vol] 9.8 10*3/uL High 1.8-7.7 [facility] Comment on above: Performed By: #### L IPASE, CBC, CMP, HS TROP #### [facility] [address] [place] [address] No Panel InformationOrdered By: Xiang Kellogg on 04-18-2023 Estimated GFR (CKD-EPI) > 60.0 mL/Min [facility] Creatinine Clearance (Chem 64.32 [facility] Nucleated erythrocytes [Pres ence] in Blood by Automated countOrdered By: Xiang Kellogg on 04-18-2023 Nucleated RBC Auto Ql (Bld) 0.0 /100{WBC} 0-0.5 [facility] Platelet mean volume [Entiti c volume] in Blood by Automated countOrdered By: Xiang Kellogg on 04-18-2023 Platelet mean volume (Bld) [Entitic vol] 8.1 fL Normal 6.3-10.7 [facility] Comment on above: Performed By: #### L IPASE, CBC, CMP, HS TROP #### [facility] [address] [place] [address] Platelets [#/volume] in Bloo d by Automated countOrdered By: Xiang Kellogg on 04-18-2023 Platelets (Bld) [#/Vol] 227 10*3/uL Normal 150-450 [facility] Comment on above: Performed By: #### L IPASE, CBC, CMP, HS TROP #### [facility] [address] [place] [address] Potassium [Moles/volume] in Serum or PlasmaOrdered By: Xiang Kellogg on 04-18-2023 Potassium [Moles/Vol] 3.2 mmol/L Low 3.5-5.1 [facility] Comment on above: Performed By: #### L IPASE, CBC, CMP, HS TROP #### [address] Protein [Mass/volume] in Ser um or PlasmaOrdered By: Xiang Kellogg on 04-18-2023 Protein [Mass/Vol] 6.7 g/dL Normal 6.4-8.9 [facility] Comment on above: Performed By: #### L IPASE, CBC, CMP, HS TROP #### [address] Serum globulin measurement b y calculation (mass/volume)Ordered By: Xiang Kellogg on 04-18-2023 Globulin (S) [Mass/Vol] 2.2 g/dL [facility] Comment on above: Performed By: #### L IPASE, CBC, CMP, HS TROP #### [facility] [address] [place] [address] Serum or plasma albumin/glob ulin mass ratioOrdered By: Xiang Kellogg on 04-18-2023 Albumin/Globulin [Mass ratio] 2.0 {ratio} [facility] Comment on above: Performed By: #### L IPASE, CBC, CMP, HS TROP #### [address] Serum or plasma anion gap de terminationOrdered By: Xiang Kellogg on 04-18-2023 Anion gap [Moles/Vol] 10.0 mmol/L Normal 6.0-15.0 [facility] Comment on above: Performed By: #### L IPASE, CBC, CMP, HS TROP #### [facility] [address] [place] [address] Serum or plasma non-glucuron idated bilirubin measurement (mass/volume)Ordered By: Xiang Kellogg on 04-18-2023 Bilirubin.indirect [Mass/Vol] 0.3 mg/dL [facility] Sodium [Moles/volume] in Ser um or PlasmaOrdered By: Xiang Kellogg on 04-18-2023 Sodium [Moles/Vol] 140 mmol/L Normal 136-145 [facility] Comment on above: Performed By: #### L IPASE, CBC, CMP, HS TROP #### [facility] [address] [place] [address] Urea nitrogen [Mass/volume] in Serum or PlasmaOrdered By: Xiang Kellogg on 04-18-2023 Urea nitrogen [Mass/Vol] 7 mg/dL Normal 7-25 [facility] Comment on above: Performed By: #### L IPASE, CBC, CMP, HS TROP #### [facility] [address] [place] [address] CT abdomen pelvis w conon CT abdomen pelvis w con [facility] [place] [address] CT Scan Report Signed Patient: Chioma Arciniega MR#: [id number] : 1970 Acct:[id number] Age/Sex: 52 / F ADM Date: 04/11/23 Loc: ER Room: Type: [facility] ER Attending Dr: Copies to: Rivera Lopez [...] Nai Salazar M.D.04/12/2023 9:01 AM Dictation Location: [place] [address] Transcribed By: [facility] 04/12/23 0901 Dictated By: Nai Salazar MD 04/12/23 0856 Signed By: 04/12/23 0901 Normal [facility] Activated partial thrombopla stin time (aPTT) in platelet poor plasma by coagulation aOrdered By: Rivera Lopez on 04-11-2023 aPTT Coag (PPP) [Time] 23.3 s 25.1-36.5 [facility] Comment on above: A hematocrit value g reater than 55% may lead to inaccurate results in coagulation testing. Patients having hematocrit values >55% require a special collection tube for coagulation studies. Please contact the laboratory at [phone] for redraw instructions. Alanine aminotransferase [En zymatic activity/volume] in Serum or PlasmaOrdered By: Rivera Lopez on 04-11-2023 ALT [Catalytic activity/Vol] 13 U/L Normal 7-52 [facility] Comment on above: Performed By: #### L IPASE, CBC, CMP, HS TROP #### [facility] [address] [place] [address] Albumin [Mass/volume] in Ser um or Plasma by Bromocresol green (BCG) dye binding methoOrdered By: Rivera Lopez on 04-11-2023 Albumin BCG dye [Mass/Vol] 4.5 g/dL 3.5-5.7 [facility] Alkaline phosphatase [Enzyma tic activity/volume] in Serum or PlasmaOrdered By: Rivera Lopez on 04-11-2023 ALP [Catalytic activity/Vol] 111 U/L High 34-104 [facility] Comment on above: Performed By: #### L IPASE, CBC, CMP, HS TROP #### [address] Aspartate aminotransferase [ Enzymatic activity/volume] in Serum or PlasmaOrdered By: Rivera Lopez on 04-11-2023 AST [Catalytic activity/Vol] 17 U/L Normal 13-39 [facility] Comment on above: Performed By: #### L IPASE, CBC, CMP, HS TROP #### [facility] [address] [place] [address] Automated basophil %Ordered By: Rivera Lopez on 04-11-2023 Basophils/100 WBC (Bld) 0.4 % Normal . [facility] Comment on above: Performed By: #### L IPASE, CBC, CMP, HS TROP #### [facility] [address] [place] [address] Automated basophil countOrde red By: Rivera Lopez on 04-11-2023 Basophils (Bld) [#/Vol] 0.1 10*3/uL Normal 0.0-0.2 [facility] Comment on above: Result Comment: PERF ORMED BY: [place] [address] PATHOLOGIST HEEL BLACKER PAULA RODRIGUES M.D. Performed By: #### L IPASE, CBC, CMP, HS TROP #### [facility] [address] [place] [address] Automated blood monocyte cou ntOrdered By: Rivera Lopez on 04-11-2023 Monocytes (Bld) [#/Vol] 0.6 10*3/uL Normal 0.0-0.8 [facility] Comment on above: Performed By: #### L IPASE, CBC, CMP, HS TROP #### [facility] [address] [place] [address] Automated eosinophil %Ordere d By: Rivera Lopez on 04-11-2023 Eosinophils/100 WBC (Bld) 0.0 % Normal . [facility] Comment on above: Performed By: #### L IPASE, CBC, CMP, HS TROP #### [facility] [address] [place] [address] Automated eosinophil countOr dered By: Rivera Lopez on 04-11-2023 Eosinophils (Bld) [#/Vol] 0.0 10*3/uL Normal 0.0-0.45 [facility] Comment on above: Performed By: #### L IPASE, CBC, CMP, HS TROP #### [address] Automated erythrocytes count in urine sediment (number/area)Ordered By: Rivera Lopez on 04-11-2023 RBC Auto (Urine sed) [#/Area] 0-1 [HPF] 0-4 [facility] Automated leukocytes count i n urine sediment (number/area)Ordered By: Rivera Lopez on 04-11-2023 WBC Auto (Urine sed) [#/Area] 3-4 [HPF] 0-4 [facility] Automated monocyte %Ordered By: Rivera Lopez on 04-11-2023 Monocytes/100 WBC (Bld) 4.3 % Normal . [facility] Comment on above: Performed By: #### L IPASE, CBC, CMP, HS TROP #### [facility] [address] [place] [address] Automated neutrophil %Ordere d By: Rivera Lopez on 04-11-2023 Neutrophils/100 WBC (Bld) 87.2 % Normal . [facility] Comment on above: Performed By: #### L IPASE, CBC, CMP, HS TROP #### [facility] [address] Automated urine color determ inationOrdered By: Rivera Lopez on 04-11-2023 Color (U) Yellow Normal Yellow [facility] Comment on above: Order Comment: Name Collection Type:: Clean-Voided Midstream Performed By: #### L IPASE, CBC, CMP, HS TROP #### [facility] [address] Basic Metabolic Panelon Creatinine Clr Calc Pharmacy 59.83 Normal [facility] Comment on above: Performed By: #### L IPASE, CBC, CMP, HS TROP #### [address] GFR/1.73 sq M.predicted MDRD (S/P/Bld) [Vol rate/Area] mL/min/{1.73_m2} Normal [facility] Comment on above: Performed By: #### L IPASE, CBC, CMP, HS TROP #### [address] Bilirubin Test strip Ql (U)O rdered By: Rivera Lopez on 04-11-2023 Bilirubin Ql (U) Negative Negative [facility] Bilirubin.direct [Mass/volum e] in Serum or PlasmaOrdered By: Rivera Lopez on 04-11-2023 Bilirubin.direct [Mass/Vol] 0.00 mg/dL 0.03-0.18 [facility] Comment on above: If the DBIL is less than 0.1, IBIL is not able to becalculated. Bilirubin.total [Mass/volume ] in Serum or PlasmaOrdered By: Rivera Lopez on 04-11-2023 Bilirubin [Mass/Vol] 0.3 mg/dL Normal 0.3-1.0 [facility] Comment on above: Performed By: #### L IPASE, CBC, CMP, HS TROP #### [facility] [address] [place] [address] CBC AND AUTO DIFFon 04-11-19 ABSOLUTE BASOPHIL 0.1 X10E9/L Normal 0.0-0.2 [facility] Comment on above: Performed By: #### C BONNIE NIEVES, 3039-05, #### [facility] ([id number]) [address] [place] [address] ABSOLUTE NEUTROPHIL 12.5 X10E9/L High 1.5-6.6 [facility] Comment on above: Performed By: #### C BONNIE NIEVES, 3039-05, #### [facility] ([id number]) [address] [place] [address] 42014 Basophils/100 WBC (Bld) 0.4 % Normal [facility] Comment on above: Performed By: #### C BONNIE NIEVES, 3039-05, #### [facility] ([id number]) [address] [place] [address] 13190 Eosinophils (Bld) [#/Vol] 0.1 10*3/uL Normal 0.0-0.4 [facility] Comment on above: Performed By: #### C BONNIE NIEVES, 3039-05, #### [facility] ([id number]) [address] [place] [address] 51615 Eosinophils/100 WBC (Bld) 0.5 % Normal [facility] Comment on above: Performed By: #### C BONNIE NIEVES, 3039-05, #### [facility] ([id number]) [address] [place] [address] 02560 Erythrocyte distribution width (RBC) [Ratio] 13.2 % Normal 11.5-15.0 [facility] Comment on above: Performed By: #### C BONNIE NIEVES, 3039-05, #### [facility] ([id number]) [address] [place] [address] 28694 Hematocrit (Bld) [Volume fraction] 44.6 % Normal 35-47 [facility] Comment on above: Performed By: #### C BONNIE NIEVES, 3039-05, #### [facility] ([id number]) [address] [place] [address] 47618 Hemoglobin (Bld) [Mass/Vol] 15.2 g/dL Normal 11.7-15.5 [facility] Comment on above: Performed By: #### Clara NIEVES CMP, 3039-05, #### [facility] ([id number]) [address] [place] [address] 63082 Lymphocytes (Bld) [#/Vol] 1.3 10*3/uL Normal 1.0-3.5 [facility] Comment on above: Performed By: #### Clara NIEVES CMP, 3039-05, #### [facility] ([id number]) [address] [place] [address] 07062 Lymphocytes/100 WBC (Bld) 8.7 % Normal [facility] Comment on above: Performed By: #### Clara NIEVES [facility], 3039-05, #### [facility] ([id number]) [address] [place] [address] 11469 MCH (RBC) [Entitic mass] 32.8 pg Normal 27-34 [facility] Comment on above: Performed By: #### Claar NIEVES CMP, 3039-05, #### [facility] ([id number]) [address] [place] [address] 83364 MCHC (RBC) [Mass/Vol] 34.1 g/dL Normal 32-36 [facility] Comment on above: Performed By: #### Clara NIEVES CMP, 3039-05, #### [facility] ([id number]) [address] [place] [address] 56042 MCV (RBC) [Entitic vol] 96 fL Normal 80-100 [facility] Comment on above: Performed By: #### Clara NIEVES, CMP, 3, #### [facility] ([id number]) [address] [place] [address] 36896 Monocytes (Bld) [#/Vol] 0.7 10*3/uL Normal 0-0.9 [facility] Comment on above: Performed By: #### Clara NIEVES, CMP, 3039-05, #### [facility] ([id number]) [address] [place] [address] 70706 Monocytes/100 WBC (Bld) 4.5 % Normal [facility] Comment on above: Performed By: #### Clara NIEVES, CMP, 3039-05, #### [facility] ([id number]) [address] [place] [address] 57251 Neutrophils/100 WBC (Bld) 85.9 % Normal [facility] Comment on above: Performed By: #### Clara NIEVES, CMP, 3039-05, #### [facility] ([id number]) [address] [place] [address] 03344 Platelet mean volume (Bld) [Entitic vol] 7.5 fL Normal 7-12 [facility] Comment on above: Performed By: #### Clara NIEVES, CMP, 3039-05, #### [facility] ([id number]) [address] [place] [address] 01544 Platelets (Bld) [#/Vol] 307 10*3/uL Normal 150-450 [facility] Comment on above: Performed By: #### Clara NIEVES, CMP, 3, #### [facility] ([id number]) [address] [place] [address] 96582 RBC COUNT 4.64 X10E12/L Normal 3.80-5.20 [facility] Comment on above: Performed By: #### C BCA, CMP, 0-3, #### [facility] ([id number]) [address] [place] [address] 83023 WBC (Bld) [#/Vol] 14.5 10*3/uL High 4.0-11.0 [facility] Comment on above: Performed By: #### C BCA, CMP, 3, #### [facility] ([id number]) [address] [place] [address] 18528 COMPREHENSIVE METABOLIC PANE Nimesh 04-11-2023 Albumin [Mass/Vol] 4.7 g/dL Normal 3.2-5.3 [facility] Comment on above: Performed By: #### C BCA, CMP, 3039-05, #### [facility] ([id number]) [address] [place] [address] 24917 ALP [Catalytic activity/Vol] 131 U/L High 39-130 [facility] Comment on above: Performed By: #### C BCA, CMP, 3039-05, #### [facility] ([id number]) [address] [place] [address] 51480 ALT [Catalytic activity/Vol] 18 U/L Normal 0-31 [facility] Comment on above: Performed By: #### C BCA, CMP, 3039-05, #### [facility] ([id number]) [address] [place] [address] 01217 Anion gap [Moles/Vol] 9 mmol/L Normal 5-15 [facility] Comment on above: Performed By: #### C BCA, CMP, 3, #### [facility] ([id number]) [address] [place] [address] 17576 AST [Catalytic activity/Vol] 23 U/L Normal 0-41 [facility] Comment on above: Performed By: #### C EZEQUIEL, CMP, 3039-05, #### [facility] ([id number]) [address] [place] [address] 56797 Bilirubin [Mass/Vol] 0.5 mg/dL Normal 0.3-1.2 [facility] Comment on above: Performed By: #### C BCA, CMP, 3039-05, #### [facility] ([id number]) [address] [place] [address] 31639 Calcium [Mass/Vol] 11.4 mg/dL High 8.5-10.5 [facility] Comment on above: Performed By: #### C EZEQUIEL, CMP, 3039-05, #### [facility] ([id number]) [address] [place] [address] 80766 Chloride [Moles/Vol] 99 mmol/L Normal 98-109 [facility] Comment on above: Performed By: #### C BCA, CMP, 3039-05, 36665-7 #### [facility] ([id number]) [address] [place] [address] 86487 CO2 [Moles/Vol] 28 mmol/L Normal 22-32 [facility] Comment on above: Performed By: #### C BCA, CMP, 3039-05, 07704-9 #### [facility] ([id number]) [address] [place] [address] 21986 Creatinine [Mass/Vol] 0.95 mg/dL Normal 0.40-1.00 [facility] Comment on above: Result Comment: METH OD TRACEABLE TO IDMS STANDARD Performed By: #### C EZEQUIEL, CMP, 3039-05, 47962-2 #### [facility] ([id number]) [address] [place] [address] [place] [address] GFR/1.73 sq M.predicted among non-blacks MDRD (S/P/Bld) [Vol rate/Area] 72 mL/min/{1.73_m2} Normal >59 [facility] Comment on above: Result Comment: Reported eGFR is based on the CKD-EPI 2020 equation that does not use a race coefficient. Performed By: #### C BONNIE NIEVES, 3039-05, #### [facility] ([id number]) [address] [place] [address] 59203 Glucose [Mass/Vol] 126 mg/dL High 65-99 [facility] Comment on above: Performed By: #### C BONNIE NIEVES, 3039-05, #### [facility] ([id number]) [address] [place] [address] 76594 Potassium [Moles/Vol] 3.2 mmol/L Low 3.5-5.0 [facility] Comment on above: Performed By: #### C EZEQUIEL [facility], 9 #### [facility] ([id number]) [address] [place] [address] 14747 Protein [Mass/Vol] 7.5 g/dL Normal 6.0-8.0 [facility] Comment on above: Performed By: #### C EZEQUIEL [facility], 3039-05, 49155-2 #### [facility] ([id number]) [address] [place] [address] 67922 Sodium [Moles/Vol] 136 mmol/L Normal 134-146 [facility] Comment on above: Performed By: #### C BONNIE NIEVES, 9 #### [facility] ([id number]) [address] [place] [address] 43012 Urea nitrogen [Mass/Vol] 6 mg/dL Normal 5-23 [facility] Comment on above: Performed By: #### C BCA, CMP, 3040-3, 04533-6 #### [facility] ([id number]) [address] [facility] [place], [place] [address] CT ABDOMEN AND PELVIS W CONT on [...] Gentile MD on 04/11/2023 6:05 PM Normal [facility] Calcium [Mass/volume] in Ser um or PlasmaOrdered By: Rivera Lopez on 04-11-2023 Calcium [Mass/Vol] 10.3 mg/dL Normal 8.6-10.3 [facility] Comment on above: Performed By: #### L IPASE, CBC, CMP, HS TROP #### [facility] [address] [place] [address] [facility] Carbon dioxide, total [Moles /volume] in Serum or PlasmaOrdered By: Rivera Lopez on 04-11-2023 CO2 [Moles/Vol] 26.9 mmol/L Normal 21.0-31.0 [facility] Comment on above: Performed By: #### L IPASE, CBC, CMP, HS TROP #### [address] Chloride [Moles/volume] in S erika or PlasmaOrdered By: Rivera Lopez on 04-11-2023 Chloride [Moles/Vol] 103 mmol/L Normal 98-107 [facility] Comment on above: Performed By: #### L IPASE, CBC, CMP, HS TROP #### [address] Complete Blood Count Auto Di ffon 04-11-2023 Mean Corpuscular HGB Conc 33.2 g/dL Normal 32.0-35.0 [facility] Comment on above: Performed By: #### L IPASE, CBC, CMP, HS TROP #### [address] Monocytes/100 WBC (Bld) 17.01 % Normal 0.00-20.00 [facility] Comment on above: Performed By: #### L IPASE, CBC, CMP, HS TROP #### [address] NRBC% 0.0 /100{WBC} Normal 0-0.5 [facility] Comment on above: Performed By: #### L IPASE, CBC, CMP, HS TROP #### [address] Creatinine [Mass/volume] in Serum or PlasmaOrdered By: Rivera Lopez on 04-11-2023 Creatinine [Mass/Vol] 0.86 mg/dL Normal 0.60-1.20 [facility] Comment on above: Performed By: #### L IPASE, CBC, CMP, HS TROP #### [address] Dipstick and Microscopicon 0 04-11-2023 Appearance (U) Turbid Critically abnormal Clear [facility] Comment on above: Order Comment: Name Collection Type:: Clean-Voided Midstream Performed By: #### L IPASE, CBC, CMP, HS TROP #### [facility] [address] [place] [address] [place] Bacteria,Urine None Seen Normal None Seen [facility] Comment on above: Order Comment: Name Collection Type:: Clean-Voided Midstream Performed By: #### L IPASE, CBC, CMP, HS TROP #### [facility] [address] Bilirubin,Urine Negative Normal Negative [facility] Comment on above: Order Comment: Name Collection Type:: Clean-Voided Midstream Performed By: #### L IPASE, CBC, CMP, HS TROP #### [facility] [address] Glucose Ql (U) Normal Normal Normal [facility] Comment on above: Order Comment: Name Collection Type:: Clean-Voided Midstream Performed By: #### L IPASE, CBC, CMP, HS TROP #### [address] Hyaline Casts,Urine None Seen Normal 0-8 [facility] Comment on above: Order Comment: Name Collection Type:: Clean-Voided Midstream Result Comment: PERF ORMED BY: [place] [address] PATHOLOGIST HEEL BLACKER PAULA RODRIGUES M.D. Performed By: #### L IPASE, CBC, CMP, HS TROP #### [address] Ketones Ql (U) Negative Normal Negative [facility] Comment on above: Order Comment: Name Collection Type:: Clean-Voided Midstream Performed By: #### L IPASE, CBC, CMP, HS TROP #### [place] [address] [place] Leukocyte esterase Test strip Ql (U) Negative Normal Negative [facility] Comment on above: Order Comment: Name Collection Type:: Clean-Voided Midstream Performed By: #### L IPASE, CBC, CMP, HS TROP #### [place] [address] [place] Nitrite,Urine Negative Normal Negative [facility] Comment on above: Order Comment: Name Collection Type:: Clean-Voided Midstream Performed By: #### L IPASE, CBC, CMP, HS TROP #### [address] Occult Blood,Urine Negative Normal Negative [facility] Comment on above: Order Comment: Name Collection Type:: Clean-Voided Midstream Result Comment: PERF ORMED BY: [place] [address] PATHOLOGIST HEEL BLACKER PAULA RODRIGUES M.D. Performed By: #### L IPASE, CBC, CMP, HS TROP #### [address] Protein,Urine Negative Normal Negative [facility] Comment on above: Order Comment: Name Collection Type:: Clean-Voided Midstream Performed By: #### L IPASE, CBC, CMP, HS TROP #### [place] [address] [place] RBC LM.HPF (Urine sed) [#/Area] 0 /[HPF] Normal 0-4 [facility] Comment on above: Order Comment: Name Collection Type:: Clean-Voided Midstream Performed By: #### L IPASE, CBC, CMP, HS TROP #### [address] Specificy Mcdonough,Urine > 1.050 High 1.001-1.03 0 [facility] Comment on above: Order Comment: Name Collection Type:: Clean-Voided Midstream Performed By: #### L IPASE, CBC, CMP, HS TROP #### [place] [address] [place] Squamous Epithelial Cell,Urine 0-1 Normal 0-2 [facility] Comment on above: Order Comment: Name Collection Type:: Clean-Voided Midstream Performed By: #### L IPASE, CBC, CMP, HS TROP #### [address] Urobilinogen,Urine Normal Normal Normal [facility] Comment on above: Order Comment: Name Collection Type:: Clean-Voided Midstream Performed By: #### L IPASE, CBC, CMP, HS TROP #### [address] WBC,Urine 3-4 Normal 0-4 [facility] Comment on above: Order Comment: Name Collection Type:: Clean-Voided Midstream Performed By: #### L IPASE, CBC, CMP, HS TROP #### [address] ECG 12 lead ECGon 04-11-2023 ECG 12 lead ECG [facility] [place] [address] [place] [address] Electrocardiograph Report Signed Patient: Chioma Arciniega MR#: [id number] : 1970 Acct:[id number] Age/Sex: 52 / F ADM Date: 04/11/23 Loc: ER Room: Type: [facility] ER Attending Dr: Ordering Provider: Rivera Lopez [...] was found Confirmed by Rivera Lopez DO ([id number]) on 04/12/2023 12:05:50 AM Referred By: Electronically Signed By:Rivera Lopez DO Transcribed By: MUS Signed By Rivera Lopez DO 4 0005 Normal [facility] Erythrocyte distribution wid th [Ratio] by Automated countOrdered By: Rivera Lopez on 04-11-2023 Erythrocyte distribution width (RBC) [Ratio] 13.6 % Normal 11.9-15.3 [facility] Comment on above: Performed By: #### L IPASE, CBC, CMP, HS TROP #### [address] Erythrocytes [#/volume] in B lood by Automated countOrdered By: Rivera Lopez on 04-11-2023 RBC (Bld) [#/Vol] 4.27 10*6/uL Normal 3.60-5.00 [facility] Comment on above: Performed By: #### L IPASE, CBC, CMP, HS TROP #### [facility] [address] Glucose [Mass/volume] in Ser um or PlasmaOrdered By: Rivera Lopez on 04-11-2023 Glucose [Mass/Vol] 121 mg/dL High 70-100 [facility] Comment on above: ADA recommended refe rence rangeRandom Glucose Reference Range is dependent on time and content of last meal. Glucose of more than 200 mg/dL in a nonstressed, ambulatory subject supports the diagnosis of Diabetes Mellitus. Result Comment: [place] om Glucose Reference Range is dependent on time and content of last meal. Glucose of more than 200 mg/dL in a nonstressed, ambulatory subject supports the diagnosis of Diabetes Mellitus. ADA recommended reference range Performed By: #### L IPASE, CBC, CMP, HS TROP #### [address] Hematocrit [Volume Fraction] of Blood by Automated countOrdered By: Rivera Lopez on 04-11-2023 Hematocrit (Bld) [Volume fraction] 41.3 % Normal 34.0-46.4 [facility] Comment on above: Performed By: #### L IPASE, CBC, CMP, HS TROP #### [facility] [address] Hemoglobin [Mass/volume] in BloodOrdered By: Rivera Lopez on 04-11-2023 Hemoglobin (Bld) [Mass/Vol] 13.7 g/dL Normal 11.8-15.4 [facility] Comment on above: Performed By: #### L IPASE, CBC, CMP, HS TROP #### [facility] [address] Hepatic Panelon 04-11-2023 Albumin [Mass/Vol] 4.5 g/dL Normal 3.5-5.7 [facility] Comment on above: Performed By: #### L IPASE, CBC, CMP, HS TROP #### [facility] [address] Bilirubin,Indirect 0.3 mg/dL Normal [facility] Comment on above: Performed By: #### L IPASE, CBC, CMP, HS TROP #### [facility] [address] Bilirubin.indirect [Mass/Vol] 0.00 mg/dL Low 0.03-0.18 [facility] Comment on above: Result Comment: If t he DBIL is less than 0.1, IBIL is not able to be calculated. Performed By: #### L IPASE, CBC, CMP, HS TROP #### [facility] [address] INR in Platelet poor plasma by Coagulation assayOrdered By: Rivera Lopez on 04-11-2023 INR Coag (PPP) [Relative time] 1.0 {INR} Normal [facility] Comment on above: INR Therapeutic [...] with mechanical heart valves: 3 - 4.5 Result Comment: INR Therapeutic Range A) Pre- [...] valves: 3 - 4.5 Performed By: #### L IPASE, CBC, CMP, HS TROP #### [facility] [address] Ketones Auto test strip (U) [Mass/Vol]Ordered By: Rivera Lopez on 04-11-2023 Ketones (U) [Mass/Vol] Negative Negative [facility] LIPASEon 04-11-2023 Lipase [Catalytic activity/Vol] 49 U/L High 17-40 [facility] Comment on above: Performed By: #### C BCA, CMP, 3040-3, 50684-4 #### [facility] ([id number]) [address] [facility] [place], [place] [address] Laboratory - UrinalysisOrder ed By: Rivera Lopez on 04-11-2023 Hyaline casts LM Ql (Urine sed) None seen [LPF] 0-8 [facility] Leukocytes [#/volume] correc aurelia for nucleated erythrocytes in Blood by Automated counOrdered By: Rivera Lopez on 04-11-2023 WBC corrected for nucl RBC Auto (Bld) [#/Vol] 13.9 10*3/uL 3.8-11.6 [facility] Leukocytes [#/volume] in Blo od by Automated countOrdered By: Rivera Lopez on 04-11-2023 WBC (Bld) [#/Vol] 13.9 10*3/uL High 3.8-11.6 [facility] Comment on above: Performed By: #### L IPASE, CBC, CMP, HS TROP #### [facility] [address] Lipase [Enzymatic activity/v olume] in Serum or PlasmaOrdered By: Rivera Lopez on 04-11-2023 Lipase [Catalytic activity/Vol] 26.0 U/L Normal 11.0-82.0 [facility] Comment on above: Result Comment: PERF ORMED BY: [place] [address] PATHOLOGIST HEEL BLACKER PAULA RODRIGUES M.D. Performed By: #### L IPASE, CBC, CMP, HS TROP #### [facility] [address] [place] [address] [place] Lymphocytes [#/volume] in Bl ood by Automated countOrdered By: Rivera Lopez on 04-11-2023 Lymphocytes (Bld) [#/Vol] 1.1 10*3/uL Normal 1.00-4.8 [facility] Comment on above: Performed By: #### L IPASE, CBC, CMP, HS TROP #### [facility] [address] [place] [address] [place] Lymphocytes/100 leukocytes i n Blood by Automated countOrdered By: Rivera Lopez on 04-11-2023 Lymphocytes/100 WBC (Bld) 8.1 % Normal . [facility] Comment on above: Performed By: #### L IPASE, CBC, CMP, HS TROP #### [facility] [address] MAGNESIUMon 04-11-2023 Magnesium [Mass/Vol] 2.0 mg/dL Normal 1.8-2.6 [facility] Comment on above: Performed By: #### C BCA, CMP, 3040-3, 46690-1, 98342-8, 03190- 9 #### [facility] ([id number]) [address] [place] [address], [place] [address] MCH [Entitic mass] by Automa aurelia countOrdered By: Rivera Lopez on 04-11-2023 MCH (RBC) [Entitic mass] 32.2 pg Normal 24.7-34.3 [facility] Comment on above: Performed By: #### L IPASE, CBC, CMP, HS TROP #### [address] MCHC Auto (RBC) [Mass/Vol]Or dered By: Rivera Lopez on 04-11-2023 MCHC (RBC) [Mass/Vol] 33.2 g/dL 32.0-35.0 [facility] MCV [Entitic volume] by Auto mated countOrdered By: Rivera Lopez on 04-11-2023 MCV (RBC) [Entitic vol] 96.8 fL Normal 80-100 [facility] Comment on above: Performed By: #### L IPASE, CBC, CMP, HS TROP #### [facility] [address] [place] [address] [place] Monocyte distribution width [Entitic volume] in Blood by AutomatedOrdered By: Rivera Lopez on 04-11-2023 Monocyte distribution width Auto (Bld) [Entitic vol] 17.01 % 0.00-20.00 [facility] Neutrophils [#/volume] in Bl ood by Automated countOrdered By: Rivera Lopez on 04-11-2023 Neutrophils (Bld) [#/Vol] 12.1 10*3/uL High 1.8-7.7 [facility] Comment on above: Performed By: #### L IPASE, CBC, CMP, HS TROP #### [facility] [address] Nitrite Test strip Ql (U)Ord ered By: Rivera Lopez on 04-11-2023 Nitrite Ql (U) Negative Negative [facility] No Panel InformationOrdered By: Rivera Lopez on 04-11-2023 Estimated GFR (CKD-EPI) > 60.0 mL/Min [facility] Creatinine Clearance (Chem 59.83 [facility] Nucleated erythrocytes [Pres ence] in Blood by Automated countOrdered By: Rivera Lopez on 04-11-2023 Nucleated RBC Auto Ql (Bld) 0.0 /100{WBC} 0-0.5 [facility] Partial Thromboplastin Timeo n 04-11-2023 aPTT Coag (Bld) [Time] 23.3 s Low 25.1-36.5 Th [facility] Comment on above: Result Comment: A he matocrit value greater than 55% may lead to inaccurate results in coagulation testing. Patients having hematocrit values >55% require a special collection tube for coagulation studies. Please contact the laboratory at [phone] for redraw instructions. PERFORMED BY: [place] [address] PATHOLOGIST HEEL BLACKER PAULA RODRIGUES M.D. Performed By: #### L IPASE, CBC, CMP, HS TROP #### [facility] [address] [place] [address] Platelet mean volume [Entiti c volume] in Blood by Automated countOrdered By: Rivera Lopez on 04-11-2023 Platelet mean volume (Bld) [Entitic vol] 7.7 fL Normal 6.3-10.7 [facility] Comment on above: Performed By: #### L IPASE, CBC, CMP, HS TROP #### [facility] [address] Platelets [#/volume] in Bloo d by Automated countOrdered By: Rivera Lopez on 04-11-2023 Platelets (Bld) [#/Vol] 262 10*3/uL Normal 150-450 [facility] Comment on above: Performed By: #### L IPASE, CBC, CMP, HS TROP #### [facility] [address] Potassium [Moles/volume] in Serum or PlasmaOrdered By: Rivera Lopez on 04-11-2023 Potassium [Moles/Vol] 4.0 mmol/L Normal 3.5-5.1 [facility] Comment on above: Performed By: #### L IPASE, CBC, CMP, HS TROP #### [address] Protein Auto test strip (U) [Mass/Vol]Ordered By: Rivera Lopez on 04-11-2023 Protein (U) [Mass/Vol] Negative Negative [facility] Protein [Mass/volume] in Ser um or PlasmaOrdered By: Rivera Lopez on 04-11-2023 Protein [Mass/Vol] 6.9 g/dL Normal 6.4-8.9 [facility] Comment on above: Performed By: #### L IPASE, CBC, CMP, HS TROP #### [address] Prothrombin time (PT)Ordered By: Rivera Lopez on 04-11-2023 PT Coag (PPP) [Time] 11.2 s Normal 9.0-12.9 [facility] Comment on above: A hematocrit value g reater than 55% may lead to inaccurate results in coagulation testing. Patients having hematocrit values >55% require a special collection tube for coagulation studies. Please contact the laboratory at [phone] for redraw instructions. Result Comment: A he matocrit value greater than 55% may lead to inaccurate results in coagulation testing. Patients having hematocrit values >55% require a special collection tube for coagulation studies. Please contact the laboratory at [phone] for redraw instructions. Performed By: #### L IPASE, CBC, CMP, HS TROP #### [address] Serum globulin measurement b y calculation (mass/volume)Ordered By: Rivera Lopez on 04-11-2023 Globulin (S) [Mass/Vol] 2.4 g/dL [facility] Comment on above: Performed By: #### L IPASE, CBC, CMP, HS TROP #### [address] Serum or plasma albumin/glob ulin mass ratioOrdered By: Rivera Lopez on 04-11-2023 Albumin/Globulin [Mass ratio] 1.9 {ratio} [facility] Comment on above: Performed By: #### L IPASE, CBC, CMP, HS TROP #### [address] Serum or plasma anion gap de terminationOrdered By: Rivera Lopez on 04-11-2023 Anion gap [Moles/Vol] 14.1 mmol/L Normal 6.0-15.0 [facility] Comment on above: Performed By: #### L IPASE, CBC, CMP, HS TROP #### [address] Serum or plasma non-glucuron idated bilirubin measurement (mass/volume)Ordered By: Rivera Lopez on 04-11-2023 Bilirubin.indirect [Mass/Vol] 0.3 mg/dL [facility] Sodium [Moles/volume] in Ser um or PlasmaOrdered By: Rivera Lopez on 04-11-2023 Sodium [Moles/Vol] 140 mmol/L Normal 136-145 [facility] Comment on above: Performed By: #### L IPASE, CBC, CMP, HS TROP #### [address] Specific gravity Auto test s trip (U) [Rel density]Ordered By: Rivera Lopez on 04-11-2023 Specific gravity (U) [Rel density] > 1.050 1.001-1.[address] [facility] Squamous epithelial cells de tection in urine sediment by light microscopyOrdered By: Rivera Matoszi on 04-11-2023 Epithelial cells.squamous LM Ql (Urine sed) 0-1 [HPF] 0-2 [facility] URN MACROSCOPIC NURon 2023 BILIRUBIN JERE Negative Normal NEG [facility] Comment on above: Performed By: #### C BCA, CMP, 3040-3, 78139-3, 66298-9, 44315- 9 #### [facility] ([id number]) [address] [place] [address] BLOOD/HGB JERE Negative Normal [facility] Comment on above: Performed By: #### C BCA, CMP, 3040-3, 47255-9, 28645-9, 35768- 9 #### [facility] ([id number]) [address] [place] [address] GLUCOSE JERE Negative Normal [facility] Comment on above: Performed By: #### C BCA, CMP, 3040-3, 42154-7, 46014-6, 38480- 9 #### [facility] ([id number]) [address] [place] [address] KETONES JERE Negative Normal NEG [facility] Comment on above: Performed By: #### C BCA, CMP, 3040-3, 92270-7, 59706-7, 63013- 9 #### [facility] ([id number]) [address] [place] [address] LEUKOCYTE ESTERASE JERE Negative Normal NEG [facility] Comment on above: Performed By: #### C BCA, CMP, 3040-3, 96215-5, 70734-9, 19748- 9 #### [facility] ([id number]) [address] [place] [address] NITRITE JERE Negative Normal NEG [facility] Comment on above: Performed By: #### C BCA, CMP, 3040-3, 64696-1, 64257-9, 41979- 9 #### [facility] ([id number]) [address] [place] [address] PH JERE >=9.0 Normal 5.0-8.5 [facility] Comment on above: Performed By: #### C BCA, CMP, 3040-3, 65687-3, 43189-4, 66425- 9 #### [facility] ([id number]) [address] [place] [address] PROTEIN JERE Negative Normal NEG [facility] Comment on above: Performed By: #### C BCA, CMP, 3040-3, 05005-5, 46410-5, 34634- 9 #### [facility] ([id number]) [address] [place] [address] SPECIFIC GRAVITY JERE 1.015 Normal 1.003-[address] [place] [address] Comment on above: Performed By: #### C BCA, CMP, 3040-3, 58838-1, 53203-4, 39349- 9 #### [facility] ([id number]) [address] [place] [address] UROBILINOGEN JERE 0.2 eu/dL Normal <1.1 [facility] Comment on above: Performed By: #### C BCA, CMP, 3040-3, 74276-5, 04141-2, 55990- 9 #### [facility] ([id number]) [address] [place] [address] Urea nitrogen [Mass/volume] in Serum or PlasmaOrdered By: Rivera Lopez on 04-11-2023 Urea nitrogen [Mass/Vol] 5 mg/dL Low 7-25 [facility] Comment on above: Performed By: #### L IPASE, CBC, CMP, HS TROP #### [facility] [address] Urine bacteria detection by automated methodOrdered By: Rivera Lopez on 04-11-2023 Bacteria Auto Ql (U) None seen None Seen [facility] Urine clarity by refractomet ry automatedOrdered By: Rivera Loepz on 04-11-2023 Clarity Refractometry automated (U) Turbid Clear [facility] Urine glucose measurement by automated test strip (mass/volume)Ordered By: Rivera Lopez on 04-11-2023 Glucose Auto test strip (U) [Mass/Vol] Normal mg/dL Normal [facility] Urine hemoglobin detection b y automated test stripOrdered By: Rivera Lopez on 04-11-2023 Hemoglobin Auto test strip Ql (U) Negative Negative [facility] Urine leukocyte esterase det ection by automated test stripOrdered By: Rivera Lopez on 04-11-2023 Leukocyte esterase Auto test strip Ql (U) Negative Negative [facility] Urine pH measurement by auto mated test stripOrdered By: Rivera Lopez on 04-11-2023 pH (U) 8.0 [pH] Normal 5.0-9.0 [facility] Comment on above: Order Comment: Name Collection Type:: Clean-Voided Midstream Performed By: #### L IPASE, CBC, CMP, HS TROP #### [facility] [address] [place] [address] Urobilinogen Auto test strip (U) [Mass/Vol]Ordered By: Rivera Lopez on 04-11-2023 Urobilinogen (U) [Mass/Vol] Normal mg/dL Normal [facility] Alanine aminotransferase [En zymatic activity/volume] in Serum or PlasmaOrdered By: Nicole Posadas on 04-02-2023 ALT [Catalytic activity/Vol] 11 U/L Normal 7-52 [facility] Comment on above: Performed By: #### L IPASE, CBC, CMP, HS TROP #### [facility] [address] [place] [address] [place] Albumin [Mass/volume] in Ser um or Plasma by Bromocresol green (BCG) dye binding methoOrdered By: Nicole Posadas on 04-02-2023 Albumin BCG dye [Mass/Vol] 4.2 g/dL 3.5-5.7 [facility] Alkaline phosphatase [Enzyma tic activity/volume] in Serum or PlasmaOrdered By: Nicole Posadas on 04-02-2023 ALP [Catalytic activity/Vol] 101 U/L Normal 34-104 [facility] Comment on above: Performed By: #### L IPASE, CBC, CMP, HS TROP #### [address] Aspartate aminotransferase [ Enzymatic activity/volume] in Serum or PlasmaOrdered By: Nicole Posadas on 04-02-2023 AST [Catalytic activity/Vol] 21 U/L Normal 13-39 [facility] Comment on above: Performed By: #### L IPASE, CBC, CMP, HS TROP #### [address] Automated basophil %Ordered By: Nicole Posadas on 04-02-2023 Basophils/100 WBC (Bld) 0.2 % Normal . [facility] Comment on above: Performed By: #### L IPASE, CBC, CMP, HS TROP #### [address] Automated basophil countOrde red By: Nicole Posadas on 04-02-2023 Basophils (Bld) [#/Vol] 0.0 10*3/uL Normal 0.0-0.2 [facility] Comment on above: Result Comment: PERF ORMED BY: [place] [address] PATHOLOGIST HEEL BLACKER PAULA RODRIGUES M.D. Performed By: #### L IPASE, CBC, CMP, HS TROP #### [address] Automated blood monocyte cou ntOrdered By: Nicole Posadas on 04-02-2023 Monocytes (Bld) [#/Vol] 0.6 10*3/uL Normal 0.0-0.8 [facility] Comment on above: Performed By: #### L IPASE, CBC, CMP, HS TROP #### [address] Automated eosinophil %Ordere d By: Nicole Posadas on 04-02-2023 Eosinophils/100 WBC (Bld) 1.7 % Normal . [facility] Comment on above: Performed By: #### L IPASE, CBC, CMP, HS TROP #### [address] Automated eosinophil countOr dered By: Nicole Posadas on 04-02-2023 Eosinophils (Bld) [#/Vol] 0.1 10*3/uL Normal 0.0-0.45 [facility] Comment on above: Performed By: #### L IPASE, CBC, CMP, HS TROP #### [address] Automated monocyte %Ordered By: Niocle Posadas on 04-02-2023 Monocytes/100 WBC (Bld) 9.8 % Normal . [facility] Comment on above: Performed By: #### L IPASE, CBC, CMP, HS TROP #### [address] Automated neutrophil %Ordere d By: Nicole Posadas on 04-02-2023 Neutrophils/100 WBC (Bld) 59.1 % Normal . [facility] Comment on above: Performed By: #### L IPASE, CBC, CMP, HS TROP #### [address] Automated urine color determ inationOrdered By: Nicole Posadas on 04-02-2023 Color (U) Yellow Normal Yellow [facility] Comment on above: Order Comment: Name Collection Type:: Clean-Voided Midstream Performed By: #### U A #### [address] Bilirubin Test strip Ql (U)O rdered By: Nicole Posadas on 04-02-2023 Bilirubin Ql (U) Negative Negative [facility] Bilirubin.total [Mass/volume ] in Serum or PlasmaOrdered By: Nicole Posadas on 04-02-2023 Bilirubin [Mass/Vol] 0.3 mg/dL Normal 0.3-1.0 [facility] Comment on above: Performed By: #### L IPASE, CBC, CMP, HS TROP #### [facility] [address] [place] [address] [facility] CT abdomen pelvis w conon CT abdomen pelvis w con [facility] [address] [place] [address] CT Scan Report Signed Patient: Chioma Arciniega MR#: [id number] : 1970 Acct:[id number] Age/Sex: 52 / F ADM Date: 04/02/23 Loc: ER Room: Type: [facility] ER Attending Dr: Copies to: Nicole [...] gland. Impression dictated by: Eyal Paredes Jr., Antoinette04/02/2023 6:15 PM Dictation Location: [place] [address] Transcribed By: [facility] 04/02/231814 Dictated By: Eyal Paredes Jr, DO 04/02/231808 Signed By: 04/02/231814 Normal [facility] Calcium [Mass/volume] in Ser um or PlasmaOrdered By: Nicole Posadas on 04-02-2023 Calcium [Mass/Vol] 9.7 mg/dL Normal 8.6-10.3 [facility] Comment on above: Performed By: #### L IPASE, CBC, CMP, HS TROP #### [address] Carbon dioxide, total [Moles /volume] in Serum or PlasmaOrdered By: Nicole Posadas on 04-02-2023 CO2 [Moles/Vol] 26.3 mmol/L Normal 21.0-31.0 [facility] Comment on above: Performed By: #### L IPASE, CBC, CMP, HS TROP #### [facility] [address] [place] [address] [place] Chloride [Moles/volume] in S erika or PlasmaOrdered By: Nicole Posadas on 04-02-2023 Chloride [Moles/Vol] 106 mmol/L Normal 98-107 [facility] Comment on above: Performed By: #### L IPASE, CBC, CMP, HS TROP #### [facility] [address] [place] [address] [place] Complete Blood Count Auto Di ffon 04-02-2023 Mean Corpuscular HGB Conc 34.0 g/dL Normal 32.0-35.0 [facility] Comment on above: Performed By: #### L IPASE, CBC, CMP, HS TROP #### [facility] [address] [place], [place] [id number] [place] Monocytes/100 WBC (Bld) 17.36 % Normal 0.00-20.00 [facility] Comment on above: Performed By: #### L IPASE, CBC, CMP, HS TROP #### [facility] [address] [place] [address] NRBC% 0.1 /100{WBC} Normal 0-0.5 [facility] Comment on above: Performed By: #### L IPASE, CBC, CMP, HS TROP #### [facility] [address] [place] [address] Comprehensive Metabolic Pane nimesh 04-02-2023 Albumin [Mass/Vol] 4.2 g/dL Normal 3.5-5.7 [facility] Comment on above: Performed By: #### L IPASE, CBC, CMP, HS TROP #### [address] Anion gap [Moles/Vol] Not performed Normal 6.0-15.0 [facility] Comment on above: Performed By: #### L IPASE, CBC, CMP, HS TROP #### [address] Creatinine Clr Calc Pharmacy 62.75 Normal [facility] Comment on above: Performed By: #### L IPASE, CBC, CMP, HS TROP #### [address] GFR/1.73 sq M.predicted MDRD (S/P/Bld) [Vol rate/Area] mL/min/{1.73_m2} Normal [facility] Comment on above: Performed By: #### L IPASE, CBC, CMP, HS TROP #### [address] Potassium Normal 3.5-5.1 [facility] Comment on above: Result Comment: Spec imen hemolyzed, redraw requested Performed By: #### L IPASE, CBC, CMP, HS TROP #### [address] Creatinine [Mass/volume] in Serum or PlasmaOrdered By: Nicole Posadas on 04-02-2023 Creatinine [Mass/Vol] 0.82 mg/dL Normal 0.60-1.20 [facility] Comment on above: Performed By: #### L IPASE, CBC, CMP, HS TROP #### [place] [id number] [place] D-Dimer High Sensitivityon 0 04-02-2023 D-Dimer High Sensitivity < 200 Normal 0-243 [facility] Comment on above: Result Comment: The reference [...] coagulation studies. Please contact the laboratory at [phone] for redraw instructions. PERFORMED BY: [place] [address] PATHOLOGIST HEEL BLACKER PAULA RODRIGUES M.D. Performed By: #### L IPASE, CBC, CMP, HS TROP #### [place] [id number] [facility] ECG 12 lead ECGon 04-02-2023 ECG 12 lead ECG [facility] [address] [place] [address] Electrocardiograph Report Signed Patient: Chioma Arciniega MR#: [id number] : 1970 Acct:[id number] Age/Sex: 52 / F ADM Date: 04/02/23 Loc: ER Room: Type: [facility] ER Attending Dr: Ordering Provider: Nicole Posadas [...] By Xiang Kellogg MD 04/02/23 1527 Normal [facility] Erythrocyte distribution wid th [Ratio] by Automated countOrdered By: Nicole Posadas on 04-02-2023 Erythrocyte distribution width (RBC) [Ratio] 13.3 % Normal 11.9-15.3 [facility] Comment on above: Performed By: #### L IPASE, CBC, CMP, HS TROP #### [facility] [address] Erythrocytes [#/volume] in B lood by Automated countOrdered By: Nicole Posadas on 04-02-2023 RBC (Bld) [#/Vol] 4.29 10*6/uL Normal 3.60-5.00 [facility] Comment on above: Performed By: #### L IPASE, CBC, CMP, HS TROP #### [facility] [address] Fibrin D-dimer [Presence] in Platelet poor plasma by Latex agglutinationOrdered By: Nicole Posadas on 04-02-2023 Fibrin D-dimer LA Ql (PPP) < 200 ng/mL 0-243 [facility] Comment on above: The reference [...] coagulation studies. Please contact the laboratory at [phone] for redraw instructions. Glucose [Mass/volume] in Ser um or PlasmaOrdered By: Nicole Posadas on 04-02-2023 Glucose [Mass/Vol] 90 mg/dL Normal 70-100 [facility] Comment on above: ADA recommended refe rence rangeRandom Glucose Reference Range is dependent on time and content of last meal. Glucose of more than 200 mg/dL in a nonstressed, ambulatory subject supports the diagnosis of Diabetes Mellitus. Result Comment: [place] om Glucose Reference Range is dependent on time and content of last meal. Glucose of more than 200 mg/dL in a nonstressed, ambulatory subject supports the diagnosis of Diabetes Mellitus. ADA recommended reference range Performed By: #### L IPASE, CBC, CMP, HS TROP #### [facility] [address] Hematocrit [Volume Fraction] of Blood by Automated countOrdered By: Nicole Posadas on 04-02-2023 Hematocrit (Bld) [Volume fraction] 41.8 % Normal 34.0-46.4 [facility] Comment on above: Performed By: #### L IPASE, CBC, CMP, HS TROP #### [facility] [address] [place] [id number] [facility] Hemoglobin [Mass/volume] in BloodOrdered By: Nicole Posadas on 04-02-2023 Hemoglobin (Bld) [Mass/Vol] 14.2 g/dL Normal 11.8-15.4 [facility] Comment on above: Performed By: #### L IPASE, CBC, CMP, HS TROP #### [facility] [address] [place] [id number] [place] Ketones Auto test strip (U) [Mass/Vol]Ordered By: Nicole Posadas on 04-02-2023 Ketones (U) [Mass/Vol] Negative Negative [facility] Leukocytes [#/volume] correc aurelia for nucleated erythrocytes in Blood by Automated counOrdered By: Nicole Posadas on 04-02-2023 WBC corrected for nucl RBC Auto (Bld) [#/Vol] 6.2 10*3/uL 3.8-11.6 [facility] Leukocytes [#/volume] in Blo od by Automated countOrdered By: Nicole Posadas on 04-02-2023 WBC (Bld) [#/Vol] 6.2 10*3/uL Normal 3.8-11.6 [facility] Comment on above: Performed By: #### L IPASE, CBC, CMP, HS TROP #### [facility] [address] [place] [address] [place] Lipase [Enzymatic activity/v olume] in Serum or PlasmaOrdered By: Nicole Posadas on 04-02-2023 Lipase [Catalytic activity/Vol] 186.0 U/L High 11.0-82.0 [facility] Comment on above: Result Comment: PERF ORMED BY: [place] [address] PATHOLOGIST HEEL BLACKER PAULA RODRIGUES M.D. Performed By: #### L IPASE, CBC, CMP, HS TROP #### [facility] [address] [place] [address] [place] Lymphocytes [#/volume] in Bl ood by Automated countOrdered By: Nicole Posadas on 04-02-2023 Lymphocytes (Bld) [#/Vol] 1.8 10*3/uL Normal 1.00-4.8 [facility] Comment on above: Performed By: #### L IPASE, CBC, CMP, HS TROP #### [facility] [address] [place] [address] [place] Lymphocytes/100 leukocytes i n Blood by Automated countOrdered By: Nicole Posadas on 04-02-2023 Lymphocytes/100 WBC (Bld) 29.2 % Normal . [facility] Comment on above: Performed By: #### L IPASE, CBC, CMP, HS TROP #### [facility] [address] [place] [address] [place] MCH [Entitic mass] by Automa aurelia countOrdered By: Nicole Posadas on 04-02-2023 MCH (RBC) [Entitic mass] 33.1 pg Normal 24.7-34.3 [facility] Comment on above: Performed By: #### L IPASE, CBC, CMP, HS TROP #### [facility] [address] [place] [address] MCHC Auto (RBC) [Mass/Vol]Or dered By: Nicole Posadas on 04-02-2023 MCHC (RBC) [Mass/Vol] 34.0 g/dL 32.0-35.0 [facility] MCV [Entitic volume] by Auto mated countOrdered By: Nicole Posadas on 04-02-2023 MCV (RBC) [Entitic vol] 97.4 fL Normal 80-100 [facility] Comment on above: Performed By: #### L IPASE, CBC, CMP, HS TROP #### [facility] [address] [place] [address] Monocyte distribution width [Entitic volume] in Blood by AutomatedOrdered By: Nicole Posadas on 04-02-2023 Monocyte distribution width Auto (Bld) [Entitic vol] 17.36 % 0.00-20.00 [facility] Neutrophils [#/volume] in Bl ood by Automated countOrdered By: Nicole Posadas on 04-02-2023 Neutrophils (Bld) [#/Vol] 3.6 10*3/uL Normal 1.8-7.7 [facility] Comment on above: Performed By: #### L IPASE, CBC, CMP, HS TROP #### [facility] [address] [place] [address] Nitrite Test strip Ql (U)Ord ered By: Nicole Posadas on 04-02-2023 Nitrite Ql (U) Negative Negative [facility] No Panel InformationOrdered By: Nicole Posadas on 04-02-2023 Estimated GFR (CKD-EPI) > 60.0 mL/Min [facility] Creatinine Clearance (Chem 62.75 [facility] Nucleated erythrocytes [Pres ence] in Blood by Automated countOrdered By: Nicole Posadas on 04-02-2023 Nucleated RBC Auto Ql (Bld) 0.1 /100{WBC} 0-0.5 [facility] Platelet mean volume [Entiti c volume] in Blood by Automated countOrdered By: Nicole Posadas on 04-02-2023 Platelet mean volume (Bld) [Entitic vol] 8.3 fL Normal 6.3-10.7 [facility] Comment on above: Performed By: #### L IPASE, CBC, CMP, HS TROP #### [address] Platelets [#/volume] in Bloo d by Automated countOrdered By: Nicole Posadas on 04-02-2023 Platelets (Bld) [#/Vol] 236 10*3/uL Normal 150-450 [facility] Comment on above: Performed By: #### L IPASE, CBC, CMP, HS TROP #### [address] Potassium [Moles/volume] in Serum or PlasmaOrdered By: Nicole Posadas on 04-02-2023 Potassium [Moles/Vol] 4.3 mmol/L Normal 3.5-5.1 [facility] Comment on above: Result Comment: PERF ORMED BY: [place] [address] PATHOLOGIST HEEL BLACKER PAULA RODRIGUES M.D. Performed By: #### R LESLY K #### [address] Protein Auto test strip (U) [Mass/Vol]Ordered By: Nicole Posadas on 04-02-2023 Protein (U) [Mass/Vol] Negative Negative [facility] Protein [Mass/volume] in Ser um or PlasmaOrdered By: Nicole Posadas on 04-02-2023 Protein [Mass/Vol] 6.6 g/dL Normal 6.4-8.9 [facility] Comment on above: Performed By: #### L IPASE, CBC, CMP, HS TROP #### [address] Serum globulin measurement b y calculation (mass/volume)Ordered By: Nicole Posadas on 04-02-2023 Globulin (S) [Mass/Vol] 2.4 g/dL Normal [facility] Comment on above: Performed By: #### L IPASE, CBC, CMP, HS TROP #### [facility] [address] Serum or plasma albumin/glob ulin mass ratioOrdered By: Nicole Posadas on 04-02-2023 Albumin/Globulin [Mass ratio] 1.8 {ratio} [facility] Comment on above: Performed By: #### L IPASE, CBC, CMP, HS TROP #### [facility] [address] [place] [address] Serum or plasma anion gap de terminationOrdered By: Nicole Posadas on 04-02-2023 Anion gap [Moles/Vol] TNP [facility] Comment on above: Test not performed Sodium [Moles/volume] in Ser um or PlasmaOrdered By: Nicole Posadas on 04-02-2023 Sodium [Moles/Vol] 137 mmol/L Normal 136-145 [facility] Comment on above: Performed By: #### L IPASE, CBC, CMP, HS TROP #### [facility] [address] [place] [address] Specific gravity Auto test s trip (U) [Rel density]Ordered By: Nicole Posadas on 04-02-2023 Specific gravity (U) [Rel density] 1.022 1.001-1.[address] [facility] Troponin I High Sensitivityo n 04-02-2023 Troponin I High Sensitivity 2.6 pg/mL Normal 0.0-15.0 [facility] Comment on above: Result Comment: PERF ORMED BY: [place] [address] PATHOLOGIST HEEL BLACKER PAULA RODRIGUES M.D. Performed By: #### L IPASE, CBC, CMP, HS TROP #### [facility] [address] [place] [address] Troponin I.cardiac [Mass/vol ume] in Serum or Plasma by Detection limit <= 0.01 ng/Ordered By: Nicole Posadas on 04-02-2023 Troponin I.cardiac DL <= 0.01 ng/mL [Mass/Vol] 2.6 pg/mL 0.0-15.0 [facility] Urea nitrogen [Mass/volume] in Serum or PlasmaOrdered By: Nicole Posadas on 04-02-2023 Urea nitrogen [Mass/Vol] 7 mg/dL Normal 09-30 [facility] Comment on above: Performed By: #### L IPASE, CBC, CMP, HS TROP #### [facility] [address] [place] [address] [place] Urinalysison 04-02-2023 Appearance (U) Clear Normal Clear [facility] Comment on above: Order Comment: Name Collection Type:: Clean-Voided Midstream Performed By: #### U A #### [address] Bilirubin,Urine Negative Normal Negative [facility] Comment on above: Order Comment: Name Collection Type:: Clean-Voided Midstream Performed By: #### U A #### [place] [address] [place] Glucose Ql (U) Normal Normal Normal [facility] Comment on above: Order Comment: Name Collection Type:: Clean-Voided Midstream Performed By: #### U A #### [address] Ketones Ql (U) Negative Normal Negative [facility] Comment on above: Order Comment: Name Collection Type:: Clean-Voided Midstream Performed By: #### U A #### [place] [address] [place] Leukocyte esterase Test strip Ql (U) Negative Normal Negative [facility] Comment on above: Order Comment: Name Collection Type:: Clean-Voided Midstream Performed By: #### U A #### [place] [address] [place] Nitrite,Urine Negative Normal Negative [facility] Comment on above: Order Comment: Name Collection Type:: Clean-Voided Midstream Performed By: #### U A #### [place] [address] [place] Occult Blood,Urine Negative Normal Negative [facility] Comment on above: Order Comment: Name Collection Type:: Clean-Voided Midstream Result Comment: PERF ORMED BY: [place] [address] PATHOLOGIST HEEL BLACKER PAULA RODRIGUES M.D. Performed By: #### U A #### [place] [address] [place] Protein,Urine Negative Normal Negative [facility] Comment on above: Order Comment: Name Collection Type:: Clean-Voided Midstream Performed By: #### U A #### [address] Specificy Mcdonough,Urine 1.022 Normal 1.001-1.03 0 [facility] Comment on above: Order Comment: Name Collection Type:: Clean-Voided Midstream Performed By: #### U A #### [place] [address] [place] Urobilinogen,Urine Normal Normal Normal [facility] Comment on above: Order Comment: Name Collection Type:: Clean-Voided Midstream Performed By: #### U A #### [address] Urine clarity by refractomet ry automatedOrdered By: Nicole Posadas on 04-02-2023 Clarity Refractometry automated (U) Clear Clear [facility] Urine glucose measurement by automated test strip (mass/volume)Ordered By: Nicole Posadas on 04-02-2023 Glucose Auto test strip (U) [Mass/Vol] Normal mg/dL Normal [facility] Urine hemoglobin detection b y automated test stripOrdered By: Nicole Posadas on 04-02-2023 Hemoglobin Auto test strip Ql (U) Negative Negative [facility] Urine leukocyte esterase det ection by automated test stripOrdered By: Nicole Posadas on 04-02-2023 Leukocyte esterase Auto test strip Ql (U) Negative Negative [facility] Urine pH measurement by auto mated test stripOrdered By: Nicole Posadas on 04-02-2023 pH (U) 5.5 [pH] Normal 5.0-9.0 [facility] Comment on above: Order Comment: Name Collection Type:: Clean-Voided Midstream Performed By: #### U A #### [facility] [address] Urobilinogen Auto test strip (U) [Mass/Vol]Ordered By: Nicole Posadas on 04-02-2023 Urobilinogen (U) [Mass/Vol] Normal mg/dL Normal [facility] CBC AND AUTO DIFFon 03-27-19 ABSOLUTE BASOPHIL 0.1 X10E9/L Normal 0.0-0.2 [facility] Comment on above: Performed By: #### C BCA, CMP, 3040-3, 05641-9, 22566-2, 88675- 9 #### [facility] ([id number]) [address] [place] [address] ABSOLUTE NEUTROPHIL 7.2 X10E9/L High 1.5-6.6 [facility] Comment on above: Performed By: #### C BCA, CMP, 3040-3, 11527-6, 61677-9, 11062- 9 #### [facility] ([id number]) [address] [place] [address] Basophils/100 WBC (Bld) 0.6 % Normal [facility] Comment on above: Performed By: #### C BCA, CMP, 3040-3, 36052-8, 66380-7, 25781- 9 #### [facility] ([id number]) [address] [place] [address] Eosinophils (Bld) [#/Vol] 0.0 10*3/uL Normal 0.0-0.4 [facility] Comment on above: Performed By: #### C BCA, CMP, 3040-3, 34500-2, 68090-7, 97992- 9 #### [facility] ([id number]) [address] [place] [address]4314 Eosinophils/100 WBC (Bld) 0.1 % Normal [facility] Comment on above: Performed By: #### C BCA, CMP, 3040-3, 98494-0, 81871-5, 68198- 9 #### [facility] ([id number]) [address] [place] [address] 75667 Erythrocyte distribution width (RBC) [Ratio] 13.7 % Normal 11.5-15.0 [facility] Comment on above: Performed By: #### C BCA, CMP, 3040-3, 41454-0, 47509-5, 31686- 9 #### [facility] ([id number]) [address] [place] [address] 76170 Hematocrit (Bld) [Volume fraction] 40.4 % Normal 35-47 [facility] Comment on above: Performed By: #### C BCA, CMP, 3040-3, 25543-9, 81893-4, 10995- 9 #### [facility] ([id number]) [address] [place] [address] 47684 Hemoglobin (Bld) [Mass/Vol] 13.8 g/dL Normal 11.7-15.5 [facility] Comment on above: Performed By: #### C BCA, CMP, 3040-3, 34561-9, 84076-3, 70429- 9 #### [facility] ([id number]) [address] [place] [address] 64367 Lymphocytes (Bld) [#/Vol] 1.7 10*3/uL Normal 1.0-3.5 [facility] Comment on above: Performed By: #### C BCA, CMP, 3040-3, 00836-6, 40712-8, 80515- 9 #### [facility] ([id number]) [address] [place] [address] [place] [address] Lymphocytes/100 WBC (Bld) 17.8 % Normal [facility] Comment on above: Performed By: #### C BCA, CMP, 3040-3, 93257-1, 93625-2, - 9 #### [facility] ([id number]) [address] [place] [address] 54316 MCH (RBC) [Entitic mass] 33.0 pg Normal 27-34 [facility] Comment on above: Performed By: #### C BCA, CMP, 3040-3, 70105-6, 09520-5, 50645- 9 #### [facility] ([id number]) [address] [place] [address] 38941 MCHC (RBC) [Mass/Vol] 34.1 g/dL Normal 32-36 [facility] Comment on above: Performed By: #### C BCA, CMP, 3040-3, 29019-7, 67264-5, - 9 #### [facility] ([id number]) [address] [place] [address] 21150 MCV (RBC) [Entitic vol] 97 fL Normal 80-100 [facility] Comment on above: Performed By: #### C BCA, CMP, 3040-3, 67042-1, 50704-7, 83933- 9 #### [facility] ([id number]) [address] [place] [address] 15780 Monocytes (Bld) [#/Vol] 0.8 10*3/uL Normal 0-0.9 [facility] Comment on above: Performed By: #### C BCA, CMP, 3040-3, 24492-2, 18983-9, 38993- 9 #### [facility] ([id number]) [address] [place] [address] 01848 Monocytes/100 WBC (Bld) 7.8 % Normal [facility] Comment on above: Performed By: #### C BCA, CMP, 3040-3, 53693-3, 06548-5, 95809- 9 #### [facility] ([id number]) [address] [place] [address] 50230 Neutrophils/100 WBC (Bld) 73.7 % Normal [facility] Comment on above: Performed By: #### C BCA, CMP, 3040-3, 63642-5, 80793-8, 81849- 9 #### [facility] ([id number]) [address] [place] [address] 22531 Platelet mean volume (Bld) [Entitic vol] 7.6 fL Normal 7-12 [facility] Comment on above: Performed By: #### C BCA, CMP, 3040-3, 18088-5, 76083-6, 37881- 9 #### [facility] ([id number]) [address] [place] [address] 79030 Platelets (Bld) [#/Vol] 269 10*3/uL Normal 150-450 [facility] Comment on above: Performed By: #### C BCA, CMP, 3040-3, 45316-6, 54068-1, 43041- 9 #### [facility] ([id number]) [address] [place] [address] 15199 RBC COUNT 4.17 X10E12/L Normal 3.80-5.20 [facility] Comment on above: Performed By: #### C BCA, CMP, 3040-3, 23814-7, 20520-8, 10018- 9 #### [facility] ([id number]) [address] [place] [address] 29616 WBC (Bld) [#/Vol] 9.8 10*3/uL Normal 4.0-11.0 [facility] Comment on above: Performed By: #### C BCA, CMP, 3040-3, 49921-0, 20489-5, 71752- 9 #### [facility] ([id number]) [address] [place] [address] 32154 COMPREHENSIVE METABOLIC PANE Nimesh 03-27-2023 Albumin [Mass/Vol] 4.6 g/dL Normal 3.2-5.3 [facility] Comment on above: Performed By: #### C BCA, CMP, 3040-3, 32000-2, 40109-4, 63966- 9 #### [facility] ([id number]) [address] [place] [address] 30490 ALP [Catalytic activity/Vol] 125 U/L Normal 39-130 [facility] Comment on above: Performed By: #### C BCA, CMP, 3040-3, 40731-9, 19333-1, 88673- 9 #### [facility] ([id number]) [address] [place] [address] 35450 ALT [Catalytic activity/Vol] 17 U/L Normal 0-31 [facility] Comment on above: Performed By: #### C BCA, CMP, 3040-3, 50544-0, 29248-9, 82160- 9 #### [facility] ([id number]) [address] [place] [address] 51088 Anion gap [Moles/Vol] 10 mmol/L Normal 5-15 [facility] Comment on above: Performed By: #### C BCA, CMP, 3040-3, 72201-9, 97392-7, 45496- 9 #### [facility] ([id number]) [address] [place] [address] 39999 AST [Catalytic activity/Vol] 27 U/L Normal 0-41 [facility] Comment on above: Performed By: #### C BCA, CMP, 3040-3, 74496-4, 13390-8, 51360- 9 #### [facility] ([id number]) [address] [place] [address] 79336 Bilirubin [Mass/Vol] 0.4 mg/dL Normal 0.3-1.2 [facility] Comment on above: Performed By: #### C BCA, CMP, 3040-3, 47435-3, 58588-1, 96935- 9 #### [facility] ([id number]) [address] [place] [address] 96627 Calcium [Mass/Vol] 10.4 mg/dL Normal 8.5-10.5 [facility] Comment on above: Performed By: #### C BCA, CMP, 3040-3, 03731-4, 48898-5, 47981- 9 #### [facility] ([id number]) [address] [place] [address] 57729 Chloride [Moles/Vol] 103 mmol/L Normal 98-109 [facility] Comment on above: Performed By: #### C BCA, CMP, 3040-3, 52701-1, 83433-8, 26299- 9 #### [facility] ([id number]) [address] [place] [address] 13303 CO2 [Moles/Vol] 25 mmol/L Normal 22-32 [facility] Comment on above: Performed By: #### C BCA, CMP, 3040-3, 15561-5, 27968-3, 01998- 9 #### [facility] ([id number]) [address] [place] [address] 14931 Creatinine [Mass/Vol] 0.96 mg/dL Normal 0.40-1.00 [facility] Comment on above: Result Comment: METH OD TRACEABLE TO IDMS STANDARD Performed By: #### C BCA, CMP, 3040-3, 77768-4, 97553-7, 67456-2 #### [facility] ([id number]) [address] [place] [address] 26490 GFR/1.73 sq M.predicted among non-blacks MDRD (S/P/Bld) [Vol rate/Area] 71 mL/min/{1.73_m2} Normal >59 [facility] Comment on above: Result Comment: Reported eGFR is based on the CKD-EPI 2020 equation that does not use a race coefficient. Performed By: #### C BCA, CMP, 3040-3, 07800-1, 55979-5, 25027-1 #### [facility] ([id number]) [address] [place] [address] 58080 Glucose [Mass/Vol] 97 mg/dL Normal 65-99 [facility] Comment on above: Performed By: #### C EZEQUIEL, CMP, 3040-3, 44046-8, 40860-4, 76975- 9 #### [facility] ([id number]) [address] [place] [address] 02649 Potassium [Moles/Vol] 4.2 mmol/L Normal 3.5-5.0 [facility] Comment on above: Performed By: #### C BCA, CMP, 3040-3, 62405-4, 25673-8, 04740- 9 #### [facility] ([id number]) [address] [place] [address] 27893 Protein [Mass/Vol] 7.4 g/dL Normal 6.0-8.0 [facility] Comment on above: Performed By: #### C BCA, CMP, 3040-3, 86152-0, 11849-2, 09888- 9 #### [facility] ([id number]) [address] [place] [address] 34040 Sodium [Moles/Vol] 138 mmol/L Normal 134-146 [facility] Comment on above: Performed By: #### C BCA, CMP, 3040-3, 27537-6, 12628-7, 15154- 9 #### [facility] ([id number]) [address] [place] [address] 38554 Urea nitrogen [Mass/Vol] 14 mg/dL Normal 5-23 [facility] Comment on above: Performed By: #### C BONNIE NIEVES, 3040-3, 57313-8, 41389-9, 89802- 9 #### [facility] ([id number]) [address] [facility], [place] [address] CT ABDOMEN AND PELVIS W CONT on [...] Flower MD on 03/27/2023 12:55 AM Normal [facility] LIPASEon 03-27-2023 Lipase [Catalytic activity/Vol] 31 U/L Normal 17-40 [facility] Comment on above: Performed By: #### C BONNIE NIEVES, 3040-3, 52751-2, 63177-1, 45478- 9 #### [facility] ([id number]) [address] [place] [address] 34849 Lactate (P richard) [Moles/Vol]o n 03-27-2023 LACTATE W/REFLEX 1.2 mmol/L Normal 0.4-2.0 [facility] Comment on above: Result Comment: Result did not trigger repeat Lactate, re-order if needed. Performed By: #### C BCA, CMP, 3040-3, 91818-5, 80830-8, 56095-5 #### [facility] ([id number]) [address] [place] [address] 46998 MAGNESIUMon 03-27-2023 Magnesium [Mass/Vol] 2.0 mg/dL Normal 1.8-2.6 [facility] Comment on above: Performed By: #### C BCA, CMP, 3040-3, 15730-7, 32386-0, 49712- 9 #### [facility] ([id number]) [address] [place] [address] 73927 TROPONIN Ion 03-27-2023 Troponin I.cardiac [Mass/Vol] ng/mL Normal 0.00-0.04 [facility] Comment on above: Performed By: #### C BCA, CMP, 3040-3, 36052-6, 62625-8, 60518- 9 #### [facility] ([id number]) [address] [place] [address] 38061 Alanine aminotransferase [En zymatic activity/volume] in Serum or PlasmaOrdered By: Nicole Posadas on 11-09-2022 ALT [Catalytic activity/Vol] 12 U/L Normal 7-52 [facility] Comment on above: Performed By: #### C MP, LIPASE, CBC #### [facility] [address] [place] [address] [place] Albumin [Mass/volume] in Ser um or Plasma by Bromocresol green (BCG) dye binding methoOrdered By: Nicole Posadas on 11-09-2022 Albumin BCG dye [Mass/Vol] 4.4 g/dL 3.5-5.7 [facility] Alkaline phosphatase [Enzyma tic activity/volume] in Serum or PlasmaOrdered By: Nicole Posadas on 11-09-2022 ALP [Catalytic activity/Vol] 126 U/L High 34-104 [facility] Comment on above: Performed By: #### C MP, LIPASE, CBC #### [address] Aspartate aminotransferase [ Enzymatic activity/volume] in Serum or PlasmaOrdered By: Nicole Posadas on 11-09-2022 AST [Catalytic activity/Vol] 17 U/L Normal 13-39 [facility] Comment on above: Performed By: #### C MP, LIPASE, CBC #### [address] Automated basophil %Ordered By: Nicole Posadas on 11-09-2022 Basophils/100 WBC (Bld) 0.9 % Normal . [facility] Comment on above: Performed By: #### C MP, LIPASE, CBC #### [address] Automated basophil countOrde red By: Nicole Posadas on 11-09-2022 Basophils (Bld) [#/Vol] 0.1 10*3/uL Normal 0.0-0.2 [facility] Comment on above: Result Comment: PERF ORMED BY: [place] [address] PATHOLOGIST HEEL BLACKER PAULA RODRIGUES M.D. Performed By: #### C MP, LIPASE, CBC #### [address] Automated blood monocyte cou ntOrdered By: Nicole Posadas on 11-09-2022 Monocytes (Bld) [#/Vol] 0.8 10*3/uL Normal 0.0-0.8 [facility] Comment on above: Performed By: #### C MP, LIPASE, CBC #### [address] Automated eosinophil %Ordere d By: Nicole Posadas on 11-09-2022 Eosinophils/100 WBC (Bld) 1.6 % Normal . [facility] Comment on above: Performed By: #### C MP, LIPASE, CBC #### [address] Automated eosinophil countOr dered By: Nicole Posadas on 11-09-2022 Eosinophils (Bld) [#/Vol] 0.1 10*3/uL Normal 0.0-0.45 [facility] Comment on above: Performed By: #### C MP, LIPASE, CBC #### [address] Automated monocyte %Ordered By: Nicole Posadas on 11-09-2022 Monocytes/100 WBC (Bld) 8.1 % Normal . [facility] Comment on above: Performed By: #### C MP, LIPASE, CBC #### [address] Automated neutrophil %Ordere d By: Nicole Posadas on 11-09-2022 Neutrophils/100 WBC (Bld) 65.4 % Normal . [facility] Comment on above: Performed By: #### C MP, LIPASE, CBC #### [address] Automated urine color determ inationOrdered By: Nicole Posadas on 11-09-2022 Color (U) Yellow Normal Yellow [facility] Comment on above: Order Comment: Name Collection Type:: Clean-Voided Midstream Performed By: #### L IPASE, CBC, CMP, HS TROP #### [address] Bilirubin Test strip Ql (U)O rdered By: Nicole Posadas on 11-09-2022 Bilirubin Ql (U) Negative Negative [facility] Bilirubin.total [Mass/volume ] in Serum or PlasmaOrdered By: Nicole Posadas on 11-09-2022 Bilirubin [Mass/Vol] 0.3 mg/dL Normal 0.3-1.0 [facility] Comment on above: Performed By: #### C MP, LIPASE, CBC #### [facility] [address] [place] [id number] [facility] CT abdomen pelvis w conon CT abdomen pelvis w con [facility] [place] [address] [place] [address] CT Scan Report Signed Patient: Chioma Arciniega MR#: [id number] : 1970 Acct:[id number] Age/Sex: 52 / F ADM Date: 11/09/22 Loc: ER Room: Type: [facility] ER Attending Dr: Copies to: Nicole [...] Rajeev Ulloa M.D.11/09/2022 4:14 PM Dictation Location: [place] [address] Transcribed By: RICA 11/09/22 1614 Dictated By: Rajeev Ulloa II, MD 11/09/22 1608 Signed By: 11/09/22 1614 Normal [facility] Calcium [Mass/volume] in Ser um or PlasmaOrdered By: Nicole Posadas on 11-09-2022 Calcium [Mass/Vol] 9.7 mg/dL Normal 8.6-10.3 [facility] Comment on above: Performed By: #### C MP, LIPASE, CBC #### [address] Carbon dioxide, total [Moles /volume] in Serum or PlasmaOrdered By: Nicole Posadas on 11-09-2022 CO2 [Moles/Vol] 28.6 mmol/L Normal 21.0-31.0 [facility] Comment on above: Performed By: #### C MP, LIPASE, CBC #### [facility] [address] [place] [address] [place] Chloride [Moles/volume] in S erika or PlasmaOrdered By: Nicole Posadas on 11-09-2022 Chloride [Moles/Vol] 107 mmol/L Normal 98-107 [facility] Comment on above: Performed By: #### C MP, LIPASE, CBC #### [facility] [address] [place] [address] [place] Complete Blood Count Auto Di ffon 11-09-2022 Mean Corpuscular HGB Conc 33.4 g/dL Normal 32.0-35.0 [facility] Comment on above: Performed By: #### C MP, LIPASE, CBC #### [place] [address] [place] Monocytes/100 WBC (Bld) 18.76 % Normal 0.00-20.00 [facility] Comment on above: Performed By: #### C MP, LIPASE, CBC #### [address] NRBC% 0.0 /100{WBC} Normal 0-0.5 [facility] Comment on above: Performed By: #### C MP, LIPASE, CBC #### [address] Comprehensive Metabolic Pane nimesh 11-09-2022 Albumin [Mass/Vol] 4.4 g/dL Normal 3.5-5.7 [facility] Comment on above: Performed By: #### C MP, LIPASE, CBC #### [address] Creatinine Clr Calc Pharmacy 69.00 Normal [facility] Comment on above: Performed By: #### C MP, LIPASE, CBC #### [address] GFR/1.73 sq M.predicted MDRD (S/P/Bld) [Vol rate/Area] mL/min/{1.73_m2} Normal [facility] Comment on above: Performed By: #### C MP, LIPASE, CBC #### [address] Creatinine [Mass/volume] in Serum or PlasmaOrdered By: Nicole Posadas on 11-09-2022 Creatinine [Mass/Vol] 0.78 mg/dL Normal 0.60-1.20 [facility] Comment on above: Performed By: #### C MP, LIPASE, CBC #### [address] ECG 12 lead ECGon 11-09-2022 ECG 12 lead ECG [facility] [place] [address] [place] [address] Electrocardiograph Report Signed Patient: Chioma Arciniega MR#: [id number] : 1970 Acct:[id number] Age/Sex: 52 / F ADM Date: 11/09/22 Loc: ER Room: Type: DEP ER Attending Dr: Shelby Provider: Nicole Posadas APRN Date of Service: [...] By Agustin Llanes MD 06/29 0147 Normal [facility] Erythrocyte distribution wid th [Ratio] by Automated countOrdered By: Nicole Posadas on 11-09-2022 Erythrocyte distribution width (RBC) [Ratio] 13.6 % Normal 11.9-15.3 [facility] Comment on above: Performed By: #### C MP, LIPASE, CBC #### [facility] [address] Erythrocytes [#/volume] in B lood by Automated countOrdered By: Nicole Posadas on 11-09-2022 RBC (Bld) [#/Vol] 4.52 10*6/uL Normal 3.60-5.00 [facility] Comment on above: Performed By: #### C MP, LIPASE, CBC #### [facility] [address] [place] [id number] [facility] Glucose [Mass/volume] in Ser um or PlasmaOrdered By: Nicole Posadas on 11-09-2022 Glucose [Mass/Vol] 96 mg/dL Normal 70-100 [facility] Comment on above: ADA recommended refe rence rangeRandom Glucose Reference Range is dependent on time and content of last meal. Glucose of more than 200 mg/dL in a nonstressed, ambulatory subject supports the diagnosis of Diabetes Mellitus. Result Comment: [place] om Glucose Reference Range is dependent on time and content of last meal. Glucose of more than 200 mg/dL in a nonstressed, ambulatory subject supports the diagnosis of Diabetes Mellitus. ADA recommended reference range Performed By: #### C MP, LIPASE, CBC #### [facility] [address] Hematocrit [Volume Fraction] of Blood by Automated countOrdered By: Nicole Posadas on 11-09-2022 Hematocrit (Bld) [Volume fraction] 44.4 % Normal 34.0-46.4 [facility] Comment on above: Performed By: #### C MP, LIPASE, CBC #### [facility] [address] Hemoglobin [Mass/volume] in BloodOrdered By: Nicole Posadas on 11-09-2022 Hemoglobin (Bld) [Mass/Vol] 14.9 g/dL Normal 11.8-15.4 [facility] Comment on above: Performed By: #### C MP, LIPASE, CBC #### [facility] [address] Ketones Auto test strip (U) [Mass/Vol]Ordered By: Nicole Posadas on 11-09-2022 Ketones (U) [Mass/Vol] Negative Negative [facility] Leukocytes [#/volume] correc aurelia for nucleated erythrocytes in Blood by Automated counOrdered By: Nicole Posadas on 11-09-2022 WBC corrected for nucl RBC Auto (Bld) [#/Vol] 9.3 10*3/uL 3.8-11.6 [facility] Leukocytes [#/volume] in Blo od by Automated countOrdered By: Nicole Posadas on 11-09-2022 WBC (Bld) [#/Vol] 9.3 10*3/uL Normal 3.8-11.6 [facility] Comment on above: Performed By: #### C MP, LIPASE, CBC #### [address] Lipase [Enzymatic activity/v olume] in Serum or PlasmaOrdered By: Nicole Posadas on 11-09-2022 Lipase [Catalytic activity/Vol] 78.0 U/L Normal 11.0-82.0 [facility] Comment on above: Result Comment: PERF ORMED BY: [place] [address] PATHOLOGIST HEEL BLACKER PAULA RODRIGUES M.D. Performed By: #### C MP, LIPASE, CBC #### [address] Lymphocytes [#/volume] in Bl ood by Automated countOrdered By: Nicole Posadas on 11-09-2022 Lymphocytes (Bld) [#/Vol] 2.2 10*3/uL Normal 1.00-4.8 [facility] Comment on above: Performed By: #### C MP, LIPASE, CBC #### [address] Lymphocytes/100 leukocytes i n Blood by Automated countOrdered By: Nicole Posadas on 11-09-2022 Lymphocytes/100 WBC (Bld) 24.0 % Normal . [facility] Comment on above: Performed By: #### C MP, LIPASE, CBC #### [address] MCH [Entitic mass] by Automa aurelia countOrdered By: Nicole Posadas on 11-09-2022 MCH (RBC) [Entitic mass] 32.8 pg Normal 24.7-34.3 [facility] Comment on above: Performed By: #### C MP, LIPASE, CBC #### [address] MCHC Auto (RBC) [Mass/Vol]Or dered By: Nicole Posadas on 11-09-2022 MCHC (RBC) [Mass/Vol] 33.4 g/dL 32.0-35.0 [facility] MCV [Entitic volume] by Auto mated countOrdered By: Nicole Posadas on 11-09-2022 MCV (RBC) [Entitic vol] 98.2 fL Normal 80-100 [facility] Comment on above: Performed By: #### C MP, LIPASE, CBC #### [address] [place] [address] [place] Monocyte distribution width [Entitic volume] in Blood by AutomatedOrdered By: Nicole Posadas on 11-09-2022 Monocyte distribution width Auto (Bld) [Entitic vol] 18.76 % 0.00-20.00 [facility] Neutrophils [#/volume] in Bl ood by Automated countOrdered By: Nicole Posadas on 11-09-2022 Neutrophils (Bld) [#/Vol] 6.1 10*3/uL Normal 1.8-7.7 [facility] Comment on above: Performed By: #### C MP, LIPASE, CBC #### [facility] [address] Nitrite Test strip Ql (U)Ord ered By: Nicole Psoadas on 11-09-2022 Nitrite Ql (U) Negative Negative [facility] No Panel InformationOrdered By: Nicole Posadas on 11-09-2022 Estimated GFR (CKD-EPI) > 60.0 mL/Min [facility] Creatinine Clearance (Chem 69.00 [facility] Nucleated erythrocytes [Pres ence] in Blood by Automated countOrdered By: Nicole Posadas on 11-09-2022 Nucleated RBC Auto Ql (Bld) 0.0 /100{WBC} 0-0.5 [facility] Platelet mean volume [Entiti c volume] in Blood by Automated countOrdered By: Nicole Posadas on 11-09-2022 Platelet mean volume (Bld) [Entitic vol] 8.3 fL Normal 6.3-10.7 [facility] Comment on above: Performed By: #### C MP, LIPASE, CBC #### [facility] [address] [place] [address] [place] Platelets [#/volume] in Bloo d by Automated countOrdered By: Nicole Posadas on 11-09-2022 Platelets (Bld) [#/Vol] 246 10*3/uL Normal 150-450 [facility] Comment on above: Performed By: #### C MP, LIPASE, CBC #### [facility] [address] [place] [address] [place] Potassium [Moles/volume] in Serum or PlasmaOrdered By: Nicole Posadas on 11-09-2022 Potassium [Moles/Vol] 3.7 mmol/L Normal 3.5-5.1 [facility] Comment on above: Performed By: #### C MP, LIPASE, CBC #### [address] Protein Auto test strip (U) [Mass/Vol]Ordered By: Nicole Posadas on 11-09-2022 Protein (U) [Mass/Vol] Negative Negative [facility] Protein [Mass/volume] in Ser um or PlasmaOrdered By: Nicole Posadas on 11-09-2022 Protein [Mass/Vol] 7.1 g/dL Normal 6.4-8.9 [facility] Comment on above: Performed By: #### C MP, LIPASE, CBC #### [address] Serum globulin measurement b y calculation (mass/volume)Ordered By: Nicole Posadas on 11-09-2022 Globulin (S) [Mass/Vol] 2.7 g/dL Normal [facility] Comment on above: Performed By: #### C MP, LIPASE, CBC #### [address] Serum or plasma albumin/glob ulin mass ratioOrdered By: Nicole Posadas on 11-09-2022 Albumin/Globulin [Mass ratio] 1.6 {ratio} [facility] Comment on above: Performed By: #### C MP, LIPASE, CBC #### [address] Serum or plasma anion gap de terminationOrdered By: Nicole Posadas on 11-09-2022 Anion gap [Moles/Vol] 8.1 mmol/L Normal 6.0-15.0 [facility] Comment on above: Performed By: #### C MP, LIPASE, CBC #### [address] Sodium [Moles/volume] in Ser um or PlasmaOrdered By: Nicole Posadas on 11-09-2022 Sodium [Moles/Vol] 140 mmol/L Normal 136-145 [facility] Comment on above: Performed By: #### C MP, LIPASE, CBC #### [address] Specific gravity Auto test s trip (U) [Rel density]Ordered By: Nicole Posadas on 11-09-2022 Specific gravity (U) [Rel density] 1.012 1.001-1.[address] [facility] Troponin I High Sensitivityo n 11-09-2022 Troponin I High Sensitivity 3.0 pg/mL Normal 0.0-15.0 [facility] Comment on above: Result Comment: PERF ORMED BY: [place] [address] PATHOLOGIST HEEL BLACKER PAULA RODRIGUES M.D. Performed By: #### H S TROP #### [address] Troponin I.cardiac [Mass/vol ume] in Serum or Plasma by Detection limit <= 0.01 ng/Ordered By: Nicole Jjanand on 11-09-2022 Troponin I.cardiac DL <= 0.01 ng/mL [Mass/Vol] 3.0 pg/mL 0.0-15.0 [facility] Urea nitrogen [Mass/volume] in Serum or PlasmaOrdered By: Nicole Posadas on 11-09-2022 Urea nitrogen [Mass/Vol] 6 mg/dL Low 7-25 [facility] Comment on above: Performed By: #### C MP, LIPASE, CBC #### [address] Urinalysison 11-09-2022 Appearance (U) Clear Normal Clear [facility] Comment on above: Order Comment: Name Collection Type:: Clean-Voided Midstream Performed By: #### L IPASE, CBC, CMP, HS TROP #### [address] Bilirubin,Urine Negative Normal Negative [facility] Comment on above: Order Comment: Name Collection Type:: Clean-Voided Midstream Performed By: #### L IPASE, CBC, CMP, HS TROP #### [address] Glucose Ql (U) Normal Normal Normal [facility] Comment on above: Order Comment: Name Collection Type:: Clean-Voided Midstream Performed By: #### L IPASE, CBC, CMP, HS TROP #### [place] [address] [place] Ketones Ql (U) Negative Normal Negative [facility] Comment on above: Order Comment: Name Collection Type:: Clean-Voided Midstream Performed By: #### L IPASE, CBC, CMP, HS TROP #### [address] Leukocyte esterase Test strip Ql (U) Negative Normal Negative [facility] Comment on above: Order Comment: Name Collection Type:: Clean-Voided Midstream Performed By: #### L IPASE, CBC, CMP, HS TROP #### [place] [address] [place] Nitrite,Urine Negative Normal Negative [facility] Comment on above: Order Comment: Name Collection Type:: Clean-Voided Midstream Performed By: #### L IPASE, CBC, CMP, HS TROP #### [place] [address] [place] Occult Blood,Urine Negative Normal Negative [facility] Comment on above: Order Comment: Name Collection Type:: Clean-Voided Midstream Result Comment: PERF ORMED BY: [place] [address] PATHOLOGIST HEEL BLACKER PAULA RODRIGUES M.D. Performed By: #### L IPASE, CBC, CMP, HS TROP #### [place] [address] [place] Protein,Urine Negative Normal Negative [facility] Comment on above: Order Comment: Name Collection Type:: Clean-Voided Midstream Performed By: #### L IPASE, CBC, CMP, HS TROP #### [address] [place] [address] [place] Specificy Mcdonough,Urine 1.012 Normal 1.001-1.03 0 [facility] Comment on above: Order Comment: Name Collection Type:: Clean-Voided Midstream Performed By: #### L IPASE, CBC, CMP, HS TROP #### [facility] [address] [place] [id number] [place] Urobilinogen,Urine Normal Normal Normal [facility] Comment on above: Order Comment: Name Collection Type:: Clean-Voided Midstream Performed By: #### L IPASE, CBC, CMP, HS TROP #### [facility] [address] Urine clarity by refractomet ry automatedOrdered By: Nicole Posadas on 11-09-2022 Clarity Refractometry automated (U) Clear Clear [facility] Urine glucose measurement by automated test strip (mass/volume)Ordered By: Nicole Posadas on 11-09-2022 Glucose Auto test strip (U) [Mass/Vol] Normal mg/dL Normal [facility] Urine hemoglobin detection b y automated test stripOrdered By: Nicole Posadas on 11-09-2022 Hemoglobin Auto test strip Ql (U) Negative Negative [facility] Urine leukocyte esterase det ection by automated test stripOrdered By: Nicole Posadas on 11-09-2022 Leukocyte esterase Auto test strip Ql (U) Negative Negative [facility] Urine pH measurement by auto mated test stripOrdered By: Nicole Posadas on 11-09-2022 pH (U) 5.5 [pH] Normal 5.0-9.0 [facility] Comment on above: Order Comment: Name Collection Type:: Clean-Voided Midstream Performed By: #### L IPASE, CBC, CMP, HS TROP #### [facility] [address] [place] [id number] [place] Urobilinogen Auto test strip (U) [Mass/Vol]Ordered By: Nicole Posadas on 11-09-2022 Urobilinogen (U) [Mass/Vol] Normal mg/dL [facility] [facility] Gastroenterology Patient Name: Chioma Rainey Procedure Date: 08/12/2022 11:09 AM Date of : 1970 Admit Type: Outpatient Age: 52 Room: EUS Proc Room 01 Gender: Female Note Status: Finalized Attending MD: Sabrina Dee MD, MPH, [id number] Procedure: Upper EUS Indications: Chronic pancreatitis, Epigastric abdominal pain, Celiac plexus block for pain secondary to chronic pancreatitis, Dysphagia, Follow-up of esophageal stenosis, For therapy of esophageal stenosis Providers: Sabrina Dee MD, MPH (Doctor), Kolby Gifford RN (Nurse), Elba Faustin (Nurse), Mary Gaviria Global Technical Writer (Global Technical Writer) Referring MD: Alexander Nichols MD (Referring MD) [...] by the physician, the nurse and the cell biologist in the procedure room. Mental Status Examination: [...] abnor (more content not included)... LAB, [facility] Radiology Study observation (narrative) [facility] AMYLASEon 06-13-2022 Amylase [Catalytic activity/Vol] 92 U/L Normal 25-115 [facility] Comment on above: Performed By: #### L IPA, CMP, CRP, NAT #### [facility] [address] [place] [address] Dr. Keturah Fisher CBC AUTO DIFFon 06-13-2022 BASO # 0.1 103/ul Normal 0.0-0.1 [facility] Comment on above: Performed By: #### L IPA, CMP, CRP, NAT #### [facility] [address] [address] [address] Keturah Fisher Basophils/100 WBC (Bld) 0.7 % Normal 0.2-2.0 [facility] Comment on above: Performed By: #### L IPA, CMP, CRP, NAT #### [facility] [address] [address] [address] Keturah Fisher EO # 0.1 103/ul Normal 0.0-0.7 [facility] Comment on above: Performed By: #### L IPA, CMP, CRP, NAT #### [facility] [address] [place] [address] Dr. Keturah Fisher Eosinophils/100 WBC (Bld) 1.1 % Normal 0.9-7.0 [facility] Comment on above: Performed By: #### L IPA, CMP, CRP, NAT #### [facility] [address] [place] [address] Dr. Keturah Fisher Erythrocyte distribution width (RBC) [Ratio] 13.0 % Normal 11.0-15.0 [facility] Comment on above: Performed By: #### L IPA, CMP, CRP, NAT #### [facility] [address] [place] [address] Dr. Keturah Fisher Hematocrit (Bld) [Volume fraction] 40.5 % Normal 36.0-48.0 [facility] Comment on above: Performed By: #### L IPA, CMP, CRP, NAT #### [facility] [address] [place] [address] Dr. Keturah Fisher Hemoglobin (Bld) [Mass/Vol] 13.9 g/dL Normal 12.0-16.0 [facility] Comment on above: Performed By: #### L IPA, CMP, CRP, NAT #### [facility] [address] [place] [address] Dr. Keturah Fisher IG # 0.03 10e3/ul Normal 0.00-0.03 [facility] Comment on above: Performed By: #### L IPA, CMP, CRP, NAT #### [facility] [address] [place] [address] Dr. Keturah Fisher IG % 0.3 % Normal 0.0-0.5 [facility] Comment on above: Performed By: #### L IPA, CMP, CRP, NAT #### [facility] [address] [place] [address] Dr. Keturah Fisher LYMPH # 2.9 103/ul Normal 1.2-3.8 [facility] Comment on above: Performed By: #### L IPA, CMP, CRP, NAT #### [facility] [address] [place] [address] Dr. Keturah Fisher Lymphocytes/100 WBC (Bld) 25.0 % Normal 20.5-60.0 [facility] Comment on above: Performed By: #### L IPA, CMP, CRP, NAT #### [facility] [address] [place] [address] Dr. Keturah Fisher MANUAL DIFF REQ NO Normal [facility] Comment on above: Performed By: #### L IPA, CMP, CRP, NAT #### [facility] [address] [place] [address] Dr. Keturah Fisher MCH (RBC) [Entitic mass] 33.3 pg Normal 26.7-34.0 [facility] Comment on above: Performed By: #### L IPA, CMP, CRP, NAT #### [facility] [address] [place] [address] Dr. Keturah Fisher MCHC (RBC) [Mass/Vol] 34.3 g/dL Normal 29.9-35.2 [facility] Comment on above: Performed By: #### L IPA, CMP, CRP, NAT #### [facility] [address] [place] [address] Dr. Keturah Fisher MCV (RBC) [Entitic vol] 96.9 fL Normal 81.0-99.0 [facility] Comment on above: Performed By: #### L IPA, CMP, CRP, NAT #### [facility] [address] [place] [address] Dr. Keturah Fisher MONO # 0.7 103/ul Normal 0.3-0.8 [facility] Comment on above: Performed By: #### L IPA, CMP, CRP, NAT #### [facility] [address] [place] [address] Dr. Keturah Fisher Monocytes/100 WBC (Bld) 5.6 % Normal 1.7-12.0 [facility] Comment on above: Performed By: #### L IPA, CMP, CRP, NAT #### [facility] [address] [place] [address] Dr. Keturah Fisher NEUT # 7.8 103/ul Critically high 1.4-6.5 [facility] Comment on above: Performed By: #### L IPA, CMP, CRP, NAT #### [facility] [address] [address] [address] Keturah Fisher Neutrophils/100 WBC (Bld) 67.3 % Normal 43.0-75.0 [facility] Comment on above: Performed By: #### L IPA, CMP, CRP, NAT #### [facility] [address] [place] [address] Dr. Keturah Fisher Platelet mean volume (Bld) [Entitic vol] 9.5 fL Normal 9.5-13.5 [facility] Comment on above: Performed By: #### L IPA, CMP, CRP, NAT #### [facility] [address] [place] [address] Dr. Keturah Fisher PLT 227 103/ul Normal 150-450 [facility] Comment on above: Performed By: #### L IPA, CMP, CRP, NAT #### [facility] [address] [place] [address] Dr. Keturah iFsher RBC 4.18 106/ul Critically low 4.20-5.40 [facility] Comment on above: Performed By: #### L IPA, CMP, CRP, NAT #### [facility] [address] [place] [address] Dr. Keturah Fisher WBC 11.5 103/ul Critically high 4.0-11.0 [facility] Comment on above: Performed By: #### L IPA, CMP, CRP, NAT #### [facility] [address] [place] [address] Dr. Keturah Fisher LIPASEon 06-13-2022 Lipase [Catalytic activity/Vol] 168.0 U/L Normal 73.0-393.0 [facility] Comment on above: Performed By: #### L IPA, CMP, CRP, NAT #### [facility] [address] [place] [address] Dr. Keturah Fisher PROF 14(COMP METB)on 023 Albumin [Mass/Vol] 3.6 g/dL Normal 3.4-5.0 [facility] Comment on above: Performed By: #### L IPA, CMP, CRP, NAT #### [facility] [address] [address] [address] Keturah Fisher Albumin/Globulin [Mass ratio] 1.1 {ratio} Normal [facility] Comment on above: Performed By: #### L IPA, CMP, CRP, NAT #### [facility] [address] [place] [address] Dr. Keturah Fisher ALP [Catalytic activity/Vol] 132 U/L Critically high 46-116 [facility] Comment on above: Performed By: #### L IPA, CMP, CRP, NAT #### [facility] [address] [place] [address] Dr. Keturah Fisher ALT [Catalytic activity/Vol] 20 U/L Normal 14-59 [facility] Comment on above: Performed By: #### L IPA, CMP, CRP, NAT #### [facility] [address] [place] [address] Dr. Keturah Fisher Anion gap [Moles/Vol] 13.7 mmol/L Normal [facility] Comment on above: Performed By: #### L IPA, CMP, CRP, NAT #### [facility] [address] [place] [address] Dr. Keturah Fisher AST [Catalytic activity/Vol] 19 U/L Normal 15-37 [facility] Comment on above: Performed By: #### L IPA, CMP, CRP, NAT #### [facility] [address] [place] [address] Dr. Keturah Fisher Bilirubin [Mass/Vol] 0.1 mg/dL Critically low 0.2-1.0 [facility] Comment on above: Performed By: #### L IPA, CMP, CRP, NAT #### [facility] [address] [place] [address] Dr. Keturah Fisher Calcium [Mass/Vol] 10.1 mg/dL Normal 8.5-10.1 [facility] Comment on above: Performed By: #### L IPA, CMP, CRP, NAT #### [facility] [address] [place] [address] Dr. Keturah Fisher Chloride [Moles/Vol] 104 mmol/L Normal 98-107 [facility] Comment on above: Performed By: #### L IPA, CMP, CRP, NAT #### [facility] [address] [address] [address] Keturah Fisher CO2 [Moles/Vol] 26.7 mmol/L Normal 21.0-32.0 [facility] Comment on above: Performed By: #### L IPA, CMP, CRP, NAT #### [facility] [address] [address] [address] Keturah Fisher Creatinine [Mass/Vol] 0.83 mg/dL Normal 0.55-1.02 [facility] Comment on above: Performed By: #### L IPA, CMP, CRP, NAT #### [facility] [address] [address] [address] Keturah Fisher EGFR-AF BENINESE >60 Normal >=60 [facility] Comment on above: Performed By: #### L IPA, CMP, CRP, NAT #### [facility] [address] [place] [address] Dr. Keturah Fisher EGFR-NON AF BENINESE >60 Normal >=60 [facility] Comment on above: Performed By: #### L IPA, CMP, CRP, NAT #### [facility] [address] [address] [address] Keturah Fisher Globulin (S) [Mass/Vol] 3.4 g/dL Normal [facility] Comment on above: Performed By: #### L IPA, CMP, CRP, NAT #### [facility] [address] [address] [address] Keturah Fisher Glucose [Mass/Vol] 115 mg/dL Critically high 74-106 [facility] Comment on above: Performed By: #### L IPA, CMP, CRP, NAT #### [facility] [address] [address] [address] Keturah Fisher Potassium [Moles/Vol] 3.4 mmol/L Critically low 3.5-5.1 [facility] Comment on above: Performed By: #### L IPA, CMP, CRP, NAT #### [facility] [address] [address] [address] Keturah Fisher Protein [Mass/Vol] 7.0 g/dL Normal 6.4-8.2 [facility] Comment on above: Performed By: #### L IPA, CMP, CRP, NAT #### [facility] [address] [address] [address] Keturah Fisher Sodium [Moles/Vol] 141 mmol/L Normal 136-145 [facility] Comment on above: Performed By: #### L IPA, CMP, CRP, NAT #### [facility] [address] [address] [address] Keturah Fisher Urea nitrogen [Mass/Vol] 9.0 mg/dL Normal 7.0-18.0 [facility] Comment on above: Performed By: #### L IPA, CMP, CRP, NAT #### [facility] [address] [address] [address] Keturah Fisher Urea nitrogen/Creatinine [Mass ratio] 10.8 mg/mg Normal [facility] Comment on above: Performed By: #### L IPA, CMP, CRP, NAT #### [facility] [address] [address] [address] Keturah Fisher XR ABD FLAT UP_PA [...] ION KRUSE Date: 2022-06-13 17:10 Normal [facility] AMYLASEon 03-29-2022 Amylase [Catalytic activity/Vol] 141 U/L Critically high 25-115 [facility] Comment on above: Performed By: #### L IVER, LIPA, BMP, NAT ####[facility] [address] [address]Dr. Keturah Fisher CBC AUTO DIFFon 03-29-2022 BASO # 0.1 103/ul Normal 0.0-0.1 [facility] Comment on above: Performed By: #### L IPA, CMP, CRP, NAT #### [facility] [address] [address] [address] Keturah Fisher Basophils/100 WBC (Bld) 0.6 % Normal 0.2-2.0 [facility] Comment on above: Performed By: #### L IPA, CMP, CRP, NAT #### [facility] [address] [place] [address] Dr. Keturah Fisher EO # 0.1 103/ul Normal 0.0-0.7 [facility] Comment on above: Performed By: #### L IPA, CMP, CRP, NAT #### [facility] [address] [place] [address] Dr. Keturah Fisher Eosinophils/100 WBC (Bld) 0.7 % Critically low 0.9-7.0 [facility] Comment on above: Performed By: #### L IPA, CMP, CRP, NAT #### [facility] [address] [place] [address] Dr. Keturah Fisher Erythrocyte distribution width (RBC) [Ratio] 12.9 % Normal 11.0-15.0 [facility] Comment on above: Performed By: #### L IPA, CMP, CRP, NAT #### [facility] [address] [place] [address] Dr. Keturah Fisher Hematocrit (Bld) [Volume fraction] 39.7 % Normal 36.0-48.0 [facility] Comment on above: Performed By: #### L IPA, CMP, CRP, NAT #### [facility] [address] [place] [address] Dr. Keturah Fisher Hemoglobin (Bld) [Mass/Vol] 14.7 g/dL Normal 12.0-16.0 [facility] Comment on above: Performed By: #### L IPA, CMP, CRP, NAT #### [facility] [address] [address] [address] Keturah Fisher IG # 0.04 10e3/ul Critically high 0.00-0.03 [facility] Comment on above: Performed By: #### L IPA, CMP, CRP, NAT #### [facility] [address] [place] [address] Dr. Keturah Fisher IG % 0.4 % Normal 0.0-0.5 [facility] Comment on above: Performed By: #### L IPA, CMP, CRP, NAT #### [facility] [address] [place] [address] Dr. Keturah Fisher LYMPH # 2.1 103/ul Normal 1.2-3.8 [facility] Comment on above: Performed By: #### L IPA, CMP, CRP, NAT #### [facility] [address] [place] [address] Dr. Keturah Fisher Lymphocytes/100 WBC (Bld) 21.2 % Normal 20.5-60.0 [facility] Comment on above: Performed By: #### L IPA, CMP, CRP, NAT #### [facility] [address] [place] [address] Dr. Keturah Fisher MANUAL DIFF REQ NO Normal [facility] Comment on above: Performed By: #### L IPA, CMP, CRP, NAT #### [facility] [address] [place] [address] Dr. Keturah Fisher MCH (RBC) [Entitic mass] 33.0 pg Normal 26.7-34.0 [facility] Comment on above: Performed By: #### L IPA, CMP, CRP, NAT #### [facility] [address] [place] [address] Dr. Keturah Fisher MCHC (RBC) [Mass/Vol] 37.0 g/dL Critically high 29.9-35.2 [facility] Comment on above: Performed By: #### L IPA, CMP, CRP, NAT #### [facility] [address] [place] [address] Dr. Keturah Fisher MCV (RBC) [Entitic vol] 89.0 fL Normal 81.0-99.0 [facility] Comment on above: Performed By: #### L IPA, CMP, CRP, NAT #### [facility] [address] [address] [address] Keturah Fisher MONO # 1.0 103/ul Critically high 0.3-0.8 [facility] Comment on above: Performed By: #### L IPA, CMP, CRP, NAT #### [facility] [address] [place] [address] Dr. Keturah Fisher Monocytes/100 WBC (Bld) 10.3 % Normal 1.7-12.0 [facility] Comment on above: Performed By: #### L IPA, CMP, CRP, NAT #### [facility] [address] [place] [address] Dr. Keturah Fisher NEUT # 6.5 103/ul Normal 1.4-6.5 [facility] Comment on above: Performed By: #### L IPA, CMP, CRP, NAT #### [facility] [address] [place] [address] Dr. Keturah Fisher Neutrophils/100 WBC (Bld) 66.8 % Normal 43.0-75.0 [facility] Comment on above: Performed By: #### L IPA, CMP, CRP, NAT #### [facility] [address] [place] [address] Dr. Keturah Fisher Platelet mean volume (Bld) [Entitic vol] 9.2 fL Critically low 9.5-13.5 [facility] Comment on above: Performed By: #### L IPA, CMP, CRP, NAT #### [facility] [address] [place] [address] Dr. Keturah Fisher PLT 229 103/ul Normal 150-450 [facility] Comment on above: Performed By: #### L IPA, CMP, CRP, NAT #### [facility] [address] [place] [address] Dr. Keturah Fisher RBC 4.46 106/ul Normal 4.20-5.40 [facility] Comment on above: Performed By: #### L IPA, CMP, CRP, NAT #### [facility] [address] [address] [address] Keturah Fisher WBC 9.7 103/ul Normal 4.0-11.0 [facility] Comment on above: Performed By: #### L IPA, CMP, CRP, NAT #### [facility] [address] [address] [address] Keturah Fisher LACTATE/LACTIC ACIDon 2022 Lactate [Moles/Vol] 0.5 mmol/L Normal 0.4-1.9 [facility] Comment on above: Performed By: #### L IPA, CMP, CRP, NAT #### [facility] [address] [address] [address] Keturah Fisher LIPASEon 03-29-2022 Lipase [Catalytic activity/Vol] 308.0 U/L Normal 73.0-393.0 [facility] Comment on above: Performed By: #### L IVER, LIPA, BMP, NAT ####[facility] [address] [address]DrGopal Fisher LIVER PROFILEon 03-29-2022 Albumin [Mass/Vol] 3.3 g/dL Critically low 3.4-5.0 [facility] Comment on above: Performed By: #### L IVER, LIPA, BMP, NAT ####[facility] [address] [address]DrGopal Fisher Albumin/Globulin [Mass ratio] 0.8 {ratio} Normal [facility] Comment on above: Performed By: #### L IVER, LIPA, BMP, NAT ####[facility] [address] [address]Dr. Keturah Fisher ALP [Catalytic activity/Vol] 182 U/L Critically high 46-116 [facility] Comment on above: Performed By: #### L IVER, LIPA, BMP, NAT ####[facility] [address] [address]Dr. Keturah Fisher ALT [Catalytic activity/Vol] 16 U/L Normal 14-59 [facility] Comment on above: Performed By: #### L IVER, LIPA, BMP, NAT ####[facility] [address] [address]Dr. Keturah Fisher AST [Catalytic activity/Vol] 26 U/L Normal 15-37 [facility] Comment on above: Performed By: #### L IVER, LIPA, BMP, NAT ####[facility] [address] [address]Dr. Keturah Fisher BILI, CONJUGATED 0.0 mg/dL Normal 0.0-0.2 [facility] Comment on above: Performed By: #### L IVER, LIPA, BMP, NAT ####[facility] [address] [address]Dr. Keturah Fisher Bilirubin [Mass/Vol] 0.3 mg/dL Normal 0.2-1.0 [facility] Comment on above: Performed By: #### L IVER, LIPA, BMP, NAT ####[facility] [address] [place], [place] [address]Dr. Keturah Fisher Globulin (S) [Mass/Vol] 3.9 g/dL Normal [facility] Comment on above: Performed By: #### L IVER, LIPA, BMP, NAT ####[facility] [address] [address]Dr. Keturah Fisher Protein [Mass/Vol] 7.2 g/dL Normal 6.4-8.2 [facility] Comment on above: Performed By: #### L IVER, LIPA, BMP, NAT ####[facility] [address] [address]Dr. Keturah Fisher PROF CHEM 8 (BAS METB)on Anion gap [Moles/Vol] 14.6 mmol/L Normal [facility] Comment on above: Performed By: #### L IVER, LIPA, BMP, NAT ####[facility] [address] [address]Dr. Keturah Fisher Calcium [Mass/Vol] 10.1 mg/dL Normal 8.5-10.1 [facility] Comment on above: Performed By: #### L IVER, LIPA, BMP, NAT ####[facility] [address] [address]Dr. Keturah Fisher Chloride [Moles/Vol] 104 mmol/L Normal 98-107 [facility] Comment on above: Performed By: #### L IVER, LIPA, BMP, NAT ####[facility] [address] [address]Dr. Keturah Fisher CO2 [Moles/Vol] 24.8 mmol/L Normal 21.0-32.0 [facility] Comment on above: Performed By: #### L IVER, LIPA, BMP, NAT ####[facility] [address] [address]Dr. Keturah Fisher Creatinine [Mass/Vol] 0.61 mg/dL Normal 0.55-1.02 [facility] Comment on above: Performed By: #### L IVER, LIPA, BMP, NAT ####[facility] [address] [place], [place] [address]Dr. Keturah Fisher EGFR-AF BENINESE >60 Normal >=60 [facility] Comment on above: Performed By: #### L IVER, LIPA, BMP, NAT ####[facility] [address] [place], [place] [address]Dr. Keturah Fisher EGFR-NON AF BENINESE >60 Normal >=60 [facility] Comment on above: Performed By: #### L IVER, LIPA, BMP, NAT ####[facility] [address] [address]Dr. Keturah Fisher Glucose [Mass/Vol] 98 mg/dL Normal 74-106 [facility] Comment on above: Performed By: #### L IVER, LIPA, BMP, NAT ####[facility] [address] [place], [place] [address]Dr. Keturah Fisher Potassium [Moles/Vol] 4.4 mmol/L Normal 3.5-5.1 [facility] Comment on above: Performed By: #### L IVER, LIPA, BMP, NAT ####[facility] [address] [id number]. Keturah Fisher Sodium [Moles/Vol] 139 mmol/L Normal 136-145 [facility] Comment on above: Performed By: #### L ROB CHIN BMP, NAT ####[facility] [address] [place], [place] [address]Ry. Keturah Fisher Urea nitrogen [Mass/Vol] 7.0 mg/dL Normal 7.0-18.0 [facility] Comment on above: Performed By: #### L ROB CHIN BMP, NAT ####[facility] [address] [place], [place] [address]Yu. Keturah Fisher Urea nitrogen/Creatinine [Mass ratio] 11.5 mg/mg Normal [facility] Comment on above: Performed By: #### L ROB CHIN BMP, NAT ####[facility] [address] [place], [place] [address]Ai. Keturah Fisher Albumin [Mass/volume] in Ser um or PlasmaOrdered By: Agustin Llanes on 03-22-2022 Albumin [Mass/Vol] 4.1 g/dL 3.2-5.5 [facility] Automated erythrocytes count in urine sediment (number/area)Ordered By: Agustin Llanes on 03-22-2022 RBC Auto (Urine sed) [#/Area] 3-4 [HPF] 0-4 [facility] Automated leukocytes count i n urine sediment (number/area)Ordered By: Agustin Llanes on 03-22-2022 WBC Auto (Urine sed) [#/Area] 10-19 [HPF] 0-4 [facility] Basophils Auto (Bld) [#/Vol] Ordered By: Agustin Llanes on 03-22-2022 Basophils (Bld) [#/Vol] 0.1 10*3/uL 0.0-0.2 [facility] Basophils/100 WBC Auto (Bld) Ordered By: Agustin Llanes on 03-22-2022 Basophils/100 WBC (Bld) 0.9 % . [facility] Bilirubin Test strip Ql (U)O rdered By: Agustin Llanes on 03-22-2022 Bilirubin Ql (U) Negative Negative [facility] Color Auto (U)Ordered By: Vita Llanes on 03-22-2022 Color (U) Yellow Yellow [facility] Creatinine and Glomerular fi ltration rate.predicted panel (S/P/Bld)Ordered By: Agustin Llanes on 03-22-2022 Creatinine [Mass/Vol] 0.74 mg/dL 0.44-1.03 [facility] Direct bilirubin measurement Ordered By: Agustin Llanes on 03-22-2022 Bilirubin.direct [Mass/Vol] 0.3 mg/dL 0.0-0.4 [facility] Eosinophils Auto (Bld) [#/Vo l]Ordered By: Agustin Llanes on 03-22-2022 Eosinophils (Bld) [#/Vol] 0.1 10*3/uL 0.0-0.45 [facility] Eosinophils/100 WBC Auto (Bl d)Ordered By: Agustin Llanes on 03-22-2022 Eosinophils/100 WBC (Bld) 0.7 % . [facility] Erythrocyte distribution wid th Auto (RBC) [Ratio]Ordered By: Agustin Llanes on 03-22-2022 Erythrocyte distribution width (RBC) [Ratio] 13.9 % 11.9-15.3 [facility] Estimated glomerular filtrat ion rate (GFR) non- AmericanOrdered By: Agusitn Llanes on 03-22-2022 GFR/1.73 sq M.predicted among non-blacks MDRD (S/P/Bld) [Vol rate/Area] > 60 mL/Min [facility] Globulin Calc (S) [Mass/Vol] Ordered By: Agustin Llanes on 03-22-2022 Globulin (S) [Mass/Vol] 3.1 g/dL [facility] HCG ( test) IA.rapi d Ql (U)Ordered By: Agustin Llanes on 03-22-2022 HCG ( test) Ql (U) Negative [facility] Hematocrit Auto (Bld) [Volum e fraction]Ordered By: Agustin Llanes on 03-22-2022 Hematocrit (Bld) [Volume fraction] 45.7 % 34.0-46.4 [facility] Hemoglobin [Mass/volume] in BloodOrdered By: Agustin Llanes on 03-22-2022 Hemoglobin (Bld) [Mass/Vol] 15.2 g/dL 11.8-15.4 [facility] Ketones Auto test strip (U) [Mass/Vol]Ordered By: Agustin Llanes on 03-22-2022 Ketones (U) [Mass/Vol] Negative Negative [facility] - Chemistry and C hemistry - challengeOrdered By: Agustin Llanes on 03-22-2022 Lipase [Catalytic activity/Vol] 122.0 U/L 22-51 [facility] - UrinalysisOrder ed By: Agustin Llanes on 03-22-2022 Hyaline casts LM Ql (Urine sed) 0-8 [LPF] 0-8 [facility] Leukocytes [#/volume] correc aurelia for nucleated erythrocytes in Blood by Automated counOrdered By: Agustin Llanes on 03-22-2022 WBC corrected for nucl RBC Auto (Bld) [#/Vol] 12.4 10*3/uL 3.8-11.6 [facility] Lymphocytes Auto (Bld) [#/Vo l]Ordered By: Agustin Llanes on 03-22-2022 Lymphocytes (Bld) [#/Vol] 2.2 10*3/uL 1.00-4.8 [facility] Lymphocytes/100 WBC Auto (Bl d)Ordered By: Agustin Llanes on 03-22-2022 Lymphocytes/100 WBC (Bld) 18.0 % . [facility] MCH Auto (RBC) [Entitic mass ]Ordered By: Agustin Llanes on 03-22-2022 MCH (RBC) [Entitic mass] 32.5 pg 24.7-34.3 [facility] MCHC Auto (RBC) [Mass/Vol]Or dered By: Agustin Llanes on 03-22-2022 MCHC (RBC) [Mass/Vol] 33.2 g/dL 32.0-35.0 [facility] MCV Auto (RBC) [Entitic vol] Ordered By: Agustin Llanes on 03-22-2022 MCV (RBC) [Entitic vol] 98.0 fL 80-100 [facility] Monocyte distribution width [Entitic volume] in Blood by AutomatedOrdered By: Agustin Llanes on 03-22-2022 Monocyte distribution width Auto (Bld) [Entitic vol] 18.78 % 0.00-20.00 [facility] Monocytes Auto (Bld) [#/Vol] Ordered By: Agustin Llanes on 03-22-2022 Monocytes (Bld) [#/Vol] 1.0 10*3/uL 0.0-0.8 [facility] Monocytes/100 WBC Auto (Bld) Ordered By: Agustin Llanes on 03-22-2022 Monocytes/100 WBC (Bld) 8.0 % . [facility] Neutrophils Auto (Bld) [#/Vo l]Ordered By: Agustin Llanes on 03-22-2022 Neutrophils (Bld) [#/Vol] 9.0 10*3/uL 1.8-7.7 [facility] Neutrophils/100 WBC Auto (Bl d)Ordered By: Agustin Llanes on 03-22-2022 Neutrophils/100 WBC (Bld) 72.4 % . [facility] Nitrite Test strip Ql (U)Ord ered By: Agustin Llanes on 03-22-2022 Nitrite Ql (U) Positive Negative [facility] No Panel InformationOrdered By: Agustin Llanes on 03-22-2022 Estimated GFR () > 60 mL/Min [facility] Comment on above: GFR estimated refere nce range: According to KDOQI guidelines, <60 ml/min/1.73m2 is sufficient to diagnose a patient with chronic kidney disease. Pharmacy Creatinine Clearance (Chem 70.34 [facility] Nucleated erythrocytes [Pres ence] in Blood by Automated countOrdered By: Agustin Llanes on 03-22-2022 Nucleated RBC Auto Ql (Bld) 0.0 /100{WBC} 0-0.5 [facility] Platelet mean volume Auto (B ld) [Entitic vol]Ordered By: Agustin Llanes on 03-22-2022 Platelet mean volume (Bld) [Entitic vol] 8.0 fL 6.3-10.7 [facility] Platelets Auto (Bld) [#/Vol] Ordered By: Agustin Llanes on 03-22-2022 Platelets (Bld) [#/Vol] 266 10*3/uL 150-450 [facility] Protein Auto test strip (U) [Mass/Vol]Ordered By: Agustin Llanes on 03-22-2022 Protein (U) [Mass/Vol] Negative Negative [facility] Protein [Mass/volume] in Ser um or PlasmaOrdered By: Agustin Llanes on 03-22-2022 Protein [Mass/Vol] 7.2 g/dL 6.1-7.9 [facility] RBC Auto (Bld) [#/Vol]Ordere d By: Agustin Llanes on 03-22-2022 RBC (Bld) [#/Vol] 4.67 10*6/uL 3.60-5.00 [facility] Serum or plasma alanine hughes otransferase measurement without P-5'-P (enzymatic activiOrdered By: Agustin Llanes on 03-22-2022 ALT No additional P-5'-P [Catalytic activity/Vol] 19 U/L 10-60 [facility] Serum or plasma albumin/glob ulin mass ratioOrdered By: Agustin Llanse on 03-22-2022 Albumin/Globulin [Mass ratio] 1.3 {ratio} [facility] Serum or plasma alkaline jaqueline sphatase measurement (enzymatic activity/volume)Ordered By: Agustin Llanes on 03-22-2022 ALP [Catalytic activity/Vol] 156 U/L 32-92 [facility] Serum or plasma anion gap de terminationOrdered By: Agustin Llanes on 03-22-2022 Anion gap [Moles/Vol] 12.6 mmol/L 6.0-15.0 [facility] Serum or plasma aspartate am inotransferase measurement (enzymatic activity/volume)Ordered By: Agustin Llanes on 03-22-2022 AST [Catalytic activity/Vol] 29 U/L 10-42 [facility] Serum or plasma calcium priscilla urement (mass/volume)Ordered By: Agustin Llanes on 03-22-2022 Calcium [Mass/Vol] 9.9 mg/dL 8.2-10.2 [facility] Serum or plasma chloride daron surement (moles/volume)Ordered By: Agustin Llanes on 03-22-2022 Chloride [Moles/Vol] 103 mmol/L 95-114 [facility] Serum or plasma glucose priscilla urement (mass/volume)Ordered By: Agustin Llanes on 03-22-2022 Glucose [Mass/Vol] 106 mg/dL 70-100 [facility] Comment on above: ADA recommended refe rence rangeRandom Glucose Reference Range is dependent on time and content of last meal. Glucose of more than 200 mg/dL in a nonstressed, ambulatory subject supports the diagnosis of Diabetes Mellitus. Serum or plasma non-glucuron idated bilirubin measurement (mass/volume)Ordered By: Agustin Llanes on 03-22-2022 Bilirubin.indirect [Mass/Vol] 0.2 mg/dL [facility] Serum or plasma potassium me asurement (moles/volume)Ordered By: Agustin Llanes on 03-22-2022 Potassium [Moles/Vol] 4.5 mmol/L 3.5-5.1 [facility] Serum or plasma sodium measu rement (moles/volume)Ordered By: Agustin Llnaes on 03-22-2022 Sodium [Moles/Vol] 138 mmol/L 136-146 [facility] Serum or plasma total biliru bin measurement (mass/volume)Ordered By: Agustin Llanes on 03-22-2022 Bilirubin [Mass/Vol] 0.5 mg/dL 0.3-1.2 [facility] Serum or plasma total carbon dioxide measurement (moles/volume)Ordered By: Agustin Llanes on 03-22-2022 CO2 [Moles/Vol] 26.9 mmol/L 22.0-30.0 [facility] Serum or plasma urea nitroge n measurement (mass/volume)Ordered By: Agustin Llanes on 03-22-2022 Urea nitrogen [Mass/Vol] 8 mg/dL 9- [facility] Specific gravity Auto test s trip (U) [Rel density]Ordered By: Agustin Llanes on 03-22-2022 Specific gravity (U) [Rel density] 1.011 1.001-1.[address] [facility] Squamous epithelial cells de tection in urine sediment by light microscopyOrdered By: Agustin Llanes on 03-22-2022 Epithelial cells.squamous LM Ql (Urine sed) 1-2 [HPF] 0-2 [facility] Urine bacteria detection by automated methodOrdered By: Agustin Llanes on 03-22-2022 Bacteria Auto Ql (U) 1+ None Seen [facility] Urine clarity by refractomet ry automatedOrdered By: Agustin Llanes on 03-22-2022 Clarity Refractometry automated (U) Clear Clear [facility] Urine glucose measurement by automated test strip (mass/volume)Ordered By: Agustin Llanes on 03-22-2022 Glucose Auto test strip (U) [Mass/Vol] Normal mg/dL Normal [facility] Urine hemoglobin detection b y automated test stripOrdered By: Agustin Llanes on 03-22-2022 Hemoglobin Auto test strip Ql (U) Negative Negative [facility] Urine leukocyte esterase det ection by automated test stripOrdered By: Agustin Llanes on 03-22-2022 Leukocyte esterase Auto test strip Ql (U) 2+ Negative [facility] Urobilinogen Auto test strip (U) [Mass/Vol]Ordered By: Agustin Llanes on 03-22-2022 Urobilinogen (U) [Mass/Vol] Normal mg/dL Normal [facility] WBC Auto (Bld) [#/Vol]Ordere d By: Agustin Llanes on 03-22-2022 WBC (Bld) [#/Vol] 12.4 10*3/uL 3.8-11.6 [facility] pH Auto test strip (U)Ordere d By: Agustin Llanes on 03-22-2022 pH (U) 5.5 [pH] 5.0-9.0 [facility] AMYLASEon 03-19-2022 Amylase [Catalytic activity/Vol] 297 U/L Critically high 25-115 [facility] Comment on above: Performed By: #### L IPA, CMP, CRP, NAT #### [facility] [address] [place] [address] Dr. Keturah Fisher CBC AUTO DIFFon 03-19-2022 BASO # 0.1 103/ul Normal 0.0-0.1 [facility] Comment on above: Performed By: #### L IPA, CMP, CRP, NAT #### [facility] [address] [address] [address] Keturah Fisher Basophils/100 WBC (Bld) 0.6 % Normal 0.2-2.0 [facility] Comment on above: Performed By: #### L IPA, CMP, CRP, NAT #### [facility] [address] [address] [address] Keturah Fisher EO # 0.1 103/ul Normal 0.0-0.7 [facility] Comment on above: Performed By: #### L IPA, CMP, CRP, NAT #### [facility] [address] [place] [address] Dr. Keturah Fisher Eosinophils/100 WBC (Bld) 0.5 % Critically low 0.9-7.0 [facility] Comment on above: Performed By: #### L IPA, CMP, CRP, NAT #### [facility] [address] [place] [address] Dr. Keturah Fisher Erythrocyte distribution width (RBC) [Ratio] 13.4 % Normal 11.0-15.0 [facility] Comment on above: Performed By: #### L IPA, CMP, CRP, NAT #### [facility] [address] [place] [address] Dr. Keturah Fisher Hemoglobin (Bld) [Mass/Vol] 15.7 g/dL Normal 12.0-16.0 [facility] Comment on above: Performed By: #### L IPA, CMP, CRP, NAT #### [facility] [address] [place] [address] Dr. Keturah Fisher IG # 0.06 10e3/ul Critically high 0.00-0.03 [facility] Comment on above: Performed By: #### L IPA, CMP, CRP, NAT #### [facility] [address] [place] [address] Dr. Keturah Fisher IG % 0.4 % Normal 0.0-0.5 [facility] Comment on above: Performed By: #### L IPA, CMP, CRP, NAT #### [facility] [address] [place] [address] Dr. Keturah Fisher LYMPH # 2.6 103/ul Normal 1.2-3.8 [facility] Comment on above: Performed By: #### L IPA, CMP, CRP, NAT #### [facility] [address] [place] [address] Dr. Keturah Fisher Lymphocytes/100 WBC (Bld) 18.1 % Critically low 20.5-60.0 [facility] Comment on above: Performed By: #### L IPA, CMP, CRP, NAT #### [facility] [address] [place], [place] [id number] Dr. Keturah Fisher MANUAL DIFF REQ NO Normal [facility] Comment on above: Performed By: #### L IPA, CMP, CRP, NAT #### [facility] [address] [place] [address] Dr. Keturah Fisher MCH (RBC) [Entitic mass] 32.4 pg Normal 26.7-34.0 [facility] Comment on above: Performed By: #### L IPA, CMP, CRP, NAT #### [facility] [address] [place] [address] Dr. Keturah Fisher MCHC (RBC) [Mass/Vol] 32.5 g/dL Normal 29.9-35.2 [facility] Comment on above: Performed By: #### L IPA, CMP, CRP, NAT #### [facility] [address] [place] [address] Dr. Keturah Fisher MCV (RBC) [Entitic vol] 99.8 fL Critically high 81.0-99.0 [facility] Comment on above: Performed By: #### L IPA, CMP, CRP, NAT #### [facility] [address] [place] [address] Dr. Keturah Fisher MONO # 0.9 103/ul Critically high 0.3-0.8 [facility] Comment on above: Performed By: #### L IPA, CMP, CRP, NAT #### [facility] [address] [place] [address] Dr. Keturah Fisher Monocytes/100 WBC (Bld) 5.9 % Normal 1.7-12.0 [facility] Comment on above: Performed By: #### L IPA, CMP, CRP, NAT #### [facility] [address] [place] [address] Dr. Keturah Fisher NEUT # 10.8 103/ul Critically high 1.4-6.5 [facility] Comment on above: Performed By: #### L IPA, CMP, CRP, NAT #### [facility] [address] [place] [address] Dr. Keturah Fisher Neutrophils/100 WBC (Bld) 74.5 % Normal 43.0-75.0 [facility] Comment on above: Performed By: #### L IPA, CMP, CRP, NAT #### [facility] [address] [place] [address] Dr. Keturah Fisher Platelet mean volume (Bld) [Entitic vol] 9.7 fL Normal 9.5-13.5 [facility] Comment on above: Performed By: #### L IPA, CMP, CRP, NAT #### [facility] [address] [place] [address] Dr. Keturah Fisher PLT 279 103/ul Normal 150-450 [facility] Comment on above: Performed By: #### L IPA, CMP, CRP, NAT #### [facility] [address] [place] [address] Dr. Keturah Fisher RBC 4.84 106/ul Normal 4.20-5.40 [facility] Comment on above: Performed By: #### L IPA, CMP, CRP, NAT #### [facility] [address] [place] [address] Dr. Keturah Fisher WBC 14.5 103/ul Critically high 4.0-11.0 [facility] Comment on above: Performed By: #### L IPA, CMP, CRP, NAT #### [facility] [address] [place] [address] ABD/PELVIS WO CONon [...] AGUSTIN HIGHTOWER Date: 2022-03-19 19:10 Normal [facility] LIPASEon 03-19-2022 Lipase [Catalytic activity/Vol] 1573.0 U/L Critically high 73.0-393.0 [facility] Comment on above: Performed By: #### L IPA, CMP, CRP, NAT #### [facility] [address] [address] [address] Keturah Fisher PROF 14(COMP METB)on 023 Albumin [Mass/Vol] 4.3 g/dL Normal 3.4-5.0 [facility] Comment on above: Performed By: #### L IPA, CMP, CRP, NAT #### [facility] [address] [address] [address] Keturah Fisher Albumin/Globulin [Mass ratio] 1.1 {ratio} Normal [facility] Comment on above: Performed By: #### L IPA, CMP, CRP, NAT #### [facility] [address] [address] [address] Keturah Fisher ALP [Catalytic activity/Vol] 222 U/L Critically high 46-116 [facility] Comment on above: Performed By: #### L IPA, CMP, CRP, NAT #### [facility] [address] [address] [address] Keturah Fisher ALT [Catalytic activity/Vol] 18 U/L Normal 14-59 [facility] Comment on above: Performed By: #### L IPA, CMP, CRP, NAT #### [facility] [address] [address] [address] Keturah Fisher Anion gap [Moles/Vol] 10.7 mmol/L Normal [facility] Comment on above: Performed By: #### L IPA, CMP, CRP, NAT #### [facility] [address] [place] [address] Dr. Keturah Fisher AST [Catalytic activity/Vol] 19 U/L Normal 15-37 [facility] Comment on above: Performed By: #### L IPA, CMP, CRP, NAT #### [facility] [address] [place] [address] Dr. Keturah Fisher Bilirubin [Mass/Vol] 0.2 mg/dL Normal 0.2-1.0 [facility] Comment on above: Performed By: #### L IPA, CMP, CRP, NAT #### [facility] [address] [place] [address] Dr. Keturah Fisher Calcium [Mass/Vol] 10.2 mg/dL Critically high 8.5-10.1 [facility] Comment on above: Performed By: #### L IPA, CMP, CRP, NAT #### [facility] [address] [place] [address] Dr. Keturah Fisher Chloride [Moles/Vol] 101 mmol/L Normal 98-107 [facility] Comment on above: Performed By: #### L IPA, CMP, CRP, NAT #### [facility] [address] [place] [address] Dr. Keturah Fisher CO2 [Moles/Vol] 29.1 mmol/L Normal 21.0-32.0 [facility] Comment on above: Performed By: #### L IPA, CMP, CRP, NAT #### [facility] [address] [address] [address] Keturah Fisher Creatinine [Mass/Vol] 0.73 mg/dL Normal 0.55-1.02 [facility] Comment on above: Performed By: #### L IPA, CMP, CRP, NAT #### [facility] [address] [address] [address] Keturah Fisher EGFR-AF BENINESE >60 Normal >=60 [facility] Comment on above: Performed By: #### L IPA, CMP, CRP, NAT #### [facility] [address] [address] [address] Keturah Fisher EGFR-NON AF BENINESE >60 Normal >=60 [facility] Comment on above: Performed By: #### L IPA, CMP, CRP, NAT #### [facility] [address] [address] [address] Keturah Fisher Globulin (S) [Mass/Vol] 4.0 g/dL Normal [facility] Comment on above: Performed By: #### L IPA, CMP, CRP, NAT #### [facility] [address] [address] [address] Keturah Fisher Glucose [Mass/Vol] 92 mg/dL Normal 74-106 [facility] Comment on above: Performed By: #### L IPA, CMP, CRP, NAT #### [facility] [address] [address] [address] Keturah Fisher Potassium [Moles/Vol] 3.8 mmol/L Normal 3.5-5.1 [facility] Comment on above: Performed By: #### L IPA, CMP, CRP, NAT #### [facility] [address] [address] [address] Keturah Fisher Protein [Mass/Vol] 8.3 g/dL Critically high 6.4-8.2 [facility] Comment on above: Performed By: #### L IPA, CMP, CRP, NAT #### [facility] [address] [address] [address] Keturah Fisher Sodium [Moles/Vol] 137 mmol/L Normal 136-145 [facility] Comment on above: Performed By: #### L IPA, CMP, CRP, NAT #### [facility] [address] [address] [address] Keturah Fisher Urea nitrogen [Mass/Vol] 10.0 mg/dL Normal 7.0-18.0 [facility] Comment on above: Performed By: #### L IPA, CMP, CRP, NAT #### [facility] [address] [address] [address] Keturah Fisher Urea nitrogen/Creatinine [Mass ratio] 13.7 mg/mg Normal [facility] Comment on above: Performed By: #### L IPA, CMP, CRP, NAT #### [facility] [address] [address] [address] Keturah Fisher PROTIMEon 03-19-2022 INR Coag (PPP) [Relative time] {INR} Normal [facility] Comment on above: Performed By: #### P TT, PT ####[facility] [address] [place], [place] [address]Dr. Keturah Fisher INR GUIDELINES SEE BELOW Normal [facility] Comment on above: Result Comment: KARLY RED INR: 2.0 - 3.0 CONDITIONS NOT LISTED BELOW 2.5 - 3.5 FOR PROSTHETIC HEART VALVE REPLACEMENT 2.5 - 3.5 RECURRENT THROMBOSIS Performed By: #### P TT, PT ####[facility] [address] [address]Dr. Keturah Fisher PT Coag (PPP) [Time] 9.4 s Normal 9.0-11.6 [facility] Comment on above: Performed By: #### P TT, PT ####[facility] [address] [address]Dr. Keturah Fisher PTTon 03-19-2022 aPTT Coag (Bld) [Time] 26.1 s Normal 22.3-36.2 [facility] Comment on above: Performed By: #### P TT, PT ####[facility] [address] [address]Dr. eKturah Fisher TROPONIN, HIGH SENSITIVITYon 03-19-2022 HSTROP 4.0 pg/mL Normal 4.0-51.3 [facility] Comment on above: Result Comment: CUT- OFF POINTS HAVE BEEN ESTABLISHED BASED ON THE FOURTH UNIVERSAL DEFINITIONS OF MYOCARDIAL INFARCTION. THE UPPER REFERENCE LIMIT (URL) OF TROPONIN, DEFINED THE 99TH PERCENTILE OF cTnI DISTRIBUTION IN A REFERENCE POPULATION, HAS BEEN CONFIRMED THE DECISION THRESHOLD FOR PR DIAGNOSIS. Performed By: #### L IPA, CMP, CRP, NAT #### [facility] [address] [place], [place] [address] Dr. 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 Mental Status [...] si (more content not included)... LAB, [facility] Radiology Study observation (narrative) [facility] BONE DENSITY AXIAL (HIP, PEL VIS, [...] interpreted this study is a Certified Clinical Seismology Teacher by the International Society of Clinical Densitometry Maulik Reed M.D., CCD. OLOGY EXAM: BONE DENSITY A XIAL (HIP, PELVIS, SPINE) 01/27/2022 15:34 PM TECHNIQUE: DXA scanning using a [employer] bone densitometer at the [facility] was performed on 01/27/2022 15:34 PM [...] 15:34 PM TECHNIQUE: DXA scanning using a [employer] bone densitometer at the [facility] was performed on 01/27/2022 15:34 PM [...] interpreted this study is a Certified Clinical Seismology Teacher by the International Society of Clinical Densitometry Maulik Reed M.D., CCD. [facility] Radiology Study observation (narrative) [facility] BONE DENSITY AXIAL (HIP, PEL VIS, SPINE)Ordered By: Maulik Reed on 01-27-2022 [facility] Work Phone: CBC AUTO DIFFon 01-15-2022 BASO # 0.1 103/ul Normal 0.0-0.1 [facility] Comment on above: Performed By: #### C BC ####[facility] [address] [address]Dr. Keturah Fisher Basophils/100 WBC (Bld) 0.9 % Normal 0.2-2.0 [facility] Comment on above: Performed By: #### C BC ####[facility] [address] [address]Dr. Keturah Fisher EO # 0.2 103/ul Normal 0.0-0.7 [facility] Comment on above: Performed By: #### C BC ####[facility] [address] [address]Dr. Keturah Fisher Eosinophils/100 WBC (Bld) 2.8 % Normal 0.9-7.0 [facility] Comment on above: Performed By: #### C BC ####[facility] [address] [id number]. Keturah Fisher Erythrocyte distribution width (RBC) [Ratio] 12.9 % Normal 11.0-15.0 [facility] Comment on above: Performed By: #### C BC ####[facility] [address] [id number]. Keturah Fisher Hematocrit (Bld) [Volume fraction] 41.7 % Normal 36.0-48.0 [facility] Comment on above: Performed By: #### C BC ####[facility] [address] [address]Dr. Keturah Fisher Hemoglobin (Bld) [Mass/Vol] 14.0 g/dL Normal 12.0-16.0 [facility] Comment on above: Performed By: #### C BC ####[facility] [address] [id number]. Keturah Fisher IG # 0.01 10e3/ul Normal 0.00-0.03 [facility] Comment on above: Performed By: #### C BC ####[facility] [address] [id number]. Keturah Fisher IG % 0.1 % Normal 0.0-0.5 [facility] Comment on above: Performed By: #### C BC ####[facility] [address] [address]Dr. Keturah Fisher LYMPH # 2.4 103/ul Normal 1.2-3.8 [facility] Comment on above: Performed By: #### C BC ####[facility] [address] [address]Dr. Keturah Fisher Lymphocytes/100 WBC (Bld) 32.0 % Normal 20.5-60.0 [facility] Comment on above: Performed By: #### C BC ####[facility] [address] [address]Dr. Elisaeli Fisher MANUAL DIFF REQ NO Normal [facility] Comment on above: Performed By: #### C BC ####[facility] [address] [address]Dr. Keturah Fisher MCH (RBC) [Entitic mass] 32.6 pg Normal 26.7-34.0 [facility] Comment on above: Performed By: #### C BC ####[facility] [address] [address]Dr. Keturah Fisher MCHC (RBC) [Mass/Vol] 33.6 g/dL Normal 29.9-35.2 [facility] Comment on above: Performed By: #### C BC ####[facility] [address] [address]Dr. Keturah Fisher MCV (RBC) [Entitic vol] 97.0 fL Normal 81.0-99.0 [facility] Comment on above: Performed By: #### C BC ####[facility] [address] [id number]. Keturah Fisher MONO # 0.7 103/ul Normal 0.3-0.8 [facility] Comment on above: Performed By: #### C BC ####[facility] [address] [id number]. Keturah Fisher Monocytes/100 WBC (Bld) 9.5 % Normal 1.7-12.0 [facility] Comment on above: Performed By: #### C BC ####[facility] [address] [id number]. Keturah Fisher NEUT # 4.1 103/ul Normal 1.4-6.5 [facility] Comment on above: Performed By: #### C BC ####[facility] [address] [phone]. Keturah Fisher Neutrophils/100 WBC (Bld) 54.7 % Normal 43.0-75.0 [facility] Comment on above: Performed By: #### C BC ####[facility] [address] [phone]. Keturah Fisher Platelet mean volume (Bld) [Entitic vol] 9.6 fL Normal 9.5-13.5 [facility] Comment on above: Performed By: #### C BC ####[facility] [address] [id number]. Keturah Fisher PLT 235 103/ul Normal 150-450 [facility] Comment on above: Performed By: #### C BC ####[facility] [address] [id number]. Keturah Fisher RBC 4.30 106/ul Normal 4.20-5.40 [facility] Comment on above: Performed By: #### C BC ####[facility] [address] [id number]. Keturah Fisher WBC 7.6 103/ul Normal 4.0-11.0 [facility] Comment on above: Performed By: #### C BC ####[facility] [address] [place], [place] [id number]. Keturah Fsiher ER URINE PROFILEon 2 Bilirubin Ql (U) Negative Normal NEGATIVE [facility] Comment on above: Performed By: #### L IPA, CMP, CRP, NAT #### [facility] [address] [place] [address] Dr. Keturah Fisher Clarity (U) CLEAR Normal CLEAR [facility] Comment on above: Performed By: #### L IPA, CMP, CRP, NAT #### [facility] [address] [address] [address] Keturah Fisher Color (U) YELLOW Normal YELLOW [facility] Comment on above: Performed By: #### L IPA, CMP, CRP, NAT #### [facility] [address] [place] [address] Dr. Keturah BAH A micrscopic examina tion will be performed if indicated. Normal [facility] Comment on above: Performed By: #### L IPA, CMP, CRP, NAT #### [facility] [address] [place] [address] Dr. Keturah Fisher Glucose Ql (U) Negative Normal NEGATIVE [facility] Comment on above: Performed By: #### L IPA, CMP, CRP, NAT #### [facility] [address] [place] [address] Dr. Keturah Fisher Hemoglobin Ql (U) Negative Normal NEGATIVE [facility] Comment on above: Performed By: #### L IPA, CMP, CRP, NAT #### [facility] [address] [place] [address] Dr. Keturah Fisher Ketones Ql (U) Negative Normal NEGATIVE [facility] Comment on above: Performed By: #### L IPA, CMP, CRP, NAT #### [facility] [address] [place] [address] Dr. Keturah Fisher LEUKOCYTES Negative Normal NEGATIVE [facility] Comment on above: Performed By: #### L IPA, CMP, CRP, NAT #### [facility] [address] [place] [address] Dr. Keturah Fisher Nitrite Ql (U) Negative Normal NEGATIVE [facility] Comment on above: Performed By: #### L IPA, CMP, CRP, NAT #### [facility] [address] [place] [address] Dr. Keturah Fisher pH (U) 5.5 [pH] Normal 5-9 [facility] Comment on above: Performed By: #### L IPA, CMP, CRP, NAT #### [facility] [address] [place] [address] Dr. Keturah Fisher SPEC GRAVITY >=1.030 Abnormal 1.005-<=1. 025 [facility] Comment on above: Performed By: #### L IPA, CMP, CRP, NAT #### [facility] [address] [place] [address] Dr. Keturah Fisher UA PROTEIN Negative Normal NEGATIVE/ TRACE [facility] Comment on above: Performed By: #### L IPA, CMP, CRP, NAT #### [facility] [address] [place] [address] Dr. Keturah Fisher UR MICRO IND NOT INDICATED Normal [facility] Comment on above: Performed By: #### L IPA, CMP, CRP, NAT #### [facility] [address] [place] [address] Dr. Keturah Fisher Urobilinogen Qn (U) 0.2 {Marizol'U}/dL Normal 0.2 - 1. 0 [facility] Comment on above: Performed By: #### L IPA, CMP, CRP, NAT #### [facility] [address] [place] [address] Dr. Keturah Fisher LIPASEon 01-15-2022 Lipase [Catalytic activity/Vol] 572.0 U/L Critically high 73.0-393.0 [facility] Comment on above: Performed By: #### C BC #### [facility] [address] [place] [address] Dr. Keturah Fisher URon 01-15-2022 , QUAL Negative Normal NEGATIVE [facility] Comment on above: Performed By: #### L IPA, CMP, CRP, NAT #### [facility] [address] [place] [address] Dr. Keturah Fisher PROF 14(COMP METB)on 022 Albumin [Mass/Vol] 3.8 g/dL Normal 3.4-5.0 [facility] Comment on above: Performed By: #### C BC #### [facility] [address] [place] [address] Dr. Keturah Fisher Albumin/Globulin [Mass ratio] 1.1 {ratio} Normal [facility] Comment on above: Performed By: #### C BC #### [facility] [address] [place] [address] Dr. Keturah Fisher ALP [Catalytic activity/Vol] 151 U/L Critically high 46-116 [facility] Comment on above: Performed By: #### C BC #### [facility] [address] [place] [address] Dr. Keturah Fisher ALT [Catalytic activity/Vol] 14 U/L Normal 14-59 [facility] Comment on above: Performed By: #### C BC #### [facility] [address] [place] [address] Dr. Keturah Fisher Anion gap [Moles/Vol] 5.5 mmol/L Normal [facility] Comment on above: Performed By: #### C BC #### [facility] [address] [place] [address] Dr. Keturah Fisher AST [Catalytic activity/Vol] 16 U/L Normal 15-37 [facility] Comment on above: Performed By: #### C BC #### [facility] [address] [place] [address] Dr. Keturah Fisher Bilirubin [Mass/Vol] 0.1 mg/dL Critically low 0.2-1.0 [facility] Comment on above: Performed By: #### C BC #### [facility] [address] [place] [address] Dr. Keturah Fisher Calcium [Mass/Vol] 9.5 mg/dL Normal 8.5-10.1 [facility] Comment on above: Performed By: #### C BC #### [facility] [address] [place] [address] Dr. Keturah Fisher Chloride [Moles/Vol] 105 mmol/L Normal 98-107 [facility] Comment on above: Performed By: #### C BC #### [facility] [address] [place] [address] Dr. Keturah Fisher CO2 [Moles/Vol] 30.0 mmol/L Normal 21.0-32.0 [facility] Comment on above: Performed By: #### C BC #### [facility] [address] [place] [address] Dr. Keturah Fisher Creatinine [Mass/Vol] 0.90 mg/dL Normal 0.55-1.02 [facility] Comment on above: Performed By: #### C BC #### [facility] [address] [place] [address] Dr. Keturah Fisher EGFR-AF BENINESE >60 Normal >=60 [facility] Comment on above: Performed By: #### C BC #### [facility] [address] [place] [address] Dr. eKturah Fisher EGFR-NON AF BENINESE >60 Normal >=60 [facility] Comment on above: Performed By: #### C BC #### [facility] [address] [place] [address] Dr. Keturah Fisher Globulin (S) [Mass/Vol] 3.4 g/dL Normal [facility] Comment on above: Performed By: #### C BC #### [facility] [address] [place] [address] Dr. Keturah Fisher Glucose [Mass/Vol] 82 mg/dL Normal 74-106 [facility] Comment on above: Performed By: #### C BC #### [facility] [address] [place] [address] Dr. Keturah Fisher Potassium [Moles/Vol] 3.5 mmol/L Normal 3.5-5.1 [facility] Comment on above: Performed By: #### C BC #### [facility] [address] [place] [address] Dr. Keturah Fisher Protein [Mass/Vol] 7.2 g/dL Normal 6.4-8.2 [facility] Comment on above: Performed By: #### C BC #### [facility] [address] [place] [address] Dr. Keturah Fisher Sodium [Moles/Vol] 137 mmol/L Normal 136-145 [facility] Comment on above: Performed By: #### C BC #### [facility] [address] [place] [address] Dr. Keturah Fisher Urea nitrogen [Mass/Vol] 12.0 mg/dL Normal 7.0-18.0 [facility] Comment on above: Performed By: #### C BC #### [facility] [address] [place] [address] Dr. Keturah Fisher Urea nitrogen/Creatinine [Mass ratio] 13.3 mg/mg Normal [facility] Comment on above: Performed By: #### C BC #### [facility] [address] [place] [address] Dr. Keturah Fisher AMYLASEon 12-13-2021 Amylase [Catalytic activity/Vol] 268 U/L Critically high 25-115 [facility] Comment on above: Performed By: #### L IPA, CMP, CRP, NAT #### [facility] [address] [place] [address] Dr. Keturah Fisher CBC AUTO DIFFon 12-13-2021 BASO # 0.1 103/ul Normal 0.0-0.1 [facility] Comment on above: Performed By: #### L IPA, CMP, CRP, NAT #### [facility] [address] [place] [address] Dr. Keturah Fisher Basophils/100 WBC (Bld) 0.6 % Normal 0.2-2.0 [facility] Comment on above: Performed By: #### L IPA, CMP, CRP, NAT #### [facility] [address] [place] [address] Dr. Keturah Fisher EO # 0.1 103/ul Normal 0.0-0.7 [facility] Comment on above: Performed By: #### L IPA, CMP, CRP, NAT #### [facility] [address] [place] [address] Dr. Keturah Fisher Eosinophils/100 WBC (Bld) 1.2 % Normal 0.9-7.0 [facility] Comment on above: Performed By: #### L IPA, CMP, CRP, NAT #### [facility] [address] [place] [address] Dr. Keturah Fisher Erythrocyte distribution width (RBC) [Ratio] 13.2 % Normal 11.0-15.0 [facility] Comment on above: Performed By: #### L IPA, CMP, CRP, NAT #### [facility] [address] [place] [address] Dr. Keturah Fisher Hematocrit (Bld) [Volume fraction] 44.7 % Normal 36.0-48.0 [facility] Comment on above: Performed By: #### L IPA, CMP, CRP, NAT #### [facility] [address] [place] [address] Dr. Keturah Fisher Hemoglobin (Bld) [Mass/Vol] 14.7 g/dL Normal 12.0-16.0 [facility] Comment on above: Performed By: #### L IPA, CMP, CRP, NAT #### [facility] [address] [place] [address] Dr. Keturah Fisher IG # 0.03 10e3/ul Normal 0.00-0.03 [facility] Comment on above: Performed By: #### L IPA, CMP, CRP, NAT #### [facility] [address] [place] [address] Dr. Keturah Fisher IG % 0.3 % Normal 0.0-0.5 [facility] Comment on above: Performed By: #### L IPA, CMP, CRP, NAT #### [facility] [address] [place] [address] Dr. Keturah Fisher LYMPH # 3.6 103/ul Normal 1.2-3.8 [facility] Comment on above: Performed By: #### L IPA, CMP, CRP, NAT #### [facility] [address] [place] [address] Dr. Keturah Fisher Lymphocytes/100 WBC (Bld) 32.7 % Normal 20.5-60.0 [facility] Comment on above: Performed By: #### L IPA, CMP, CRP, NAT #### [facility] [address] [place] [address] Dr. Keturah Fisher MANUAL DIFF REQ NO Normal [facility] Comment on above: Performed By: #### L IPA, CMP, CRP, NAT #### [facility] [address] [place] [address] Dr. Keturah Fisher MCH (RBC) [Entitic mass] 32.2 pg Normal 26.7-34.0 [facility] Comment on above: Performed By: #### L IPA, CMP, CRP, NAT #### [facility] [address] [place] [address] Dr. Keturah Fisher MCHC (RBC) [Mass/Vol] 32.9 g/dL Normal 29.9-35.2 [facility] Comment on above: Performed By: #### L IPA, CMP, CRP, NAT #### [facility] [address] [place] [address] Dr. Keturah Fisher MCV (RBC) [Entitic vol] 98.0 fL Normal 81.0-99.0 [facility] Comment on above: Performed By: #### L IPA, CMP, CRP, NAT #### [facility] [address] [place] [address] Dr. Keturah Fisher MONO # 1.1 103/ul Critically high 0.3-0.8 [facility] Comment on above: Performed By: #### L IPA, CMP, CRP, NAT #### [facility] [address] [place] [address] Dr. Keturah Fisher Monocytes/100 WBC (Bld) 9.7 % Normal 1.7-12.0 [facility] Comment on above: Performed By: #### L IPA, CMP, CRP, NAT #### [facility] [address] [place] [address] Dr. Keturah Fisher NEUT # 6.1 103/ul Normal 1.4-6.5 [facility] Comment on above: Performed By: #### L IPA, CMP, CRP, NAT #### [facility] [address] [place] [address] Dr. Keturah Fisher Neutrophils/100 WBC (Bld) 55.5 % Normal 43.0-75.0 [facility] Comment on above: Performed By: #### L IPA, CMP, CRP, NAT #### [facility] [address] [place] [address] Dr. Keturah Fisher Platelet mean volume (Bld) [Entitic vol] 9.7 fL Normal 9.5-13.5 [facility] Comment on above: Performed By: #### L IPA, CMP, CRP, NAT #### [facility] [address] [address] [address] Keturah Fisher PLT 274 103/ul Normal 150-450 [facility] Comment on above: Performed By: #### L IPA, CMP, CRP, NAT #### [facility] [address] [place] [address] Dr. Keturah Fisher RBC 4.56 106/ul Normal 4.20-5.40 [facility] Comment on above: Performed By: #### L IPA, CMP, CRP, NAT #### [facility] [address] [place] [address] Dr. Keturah Fisher WBC 10.9 103/ul Normal 4.0-11.0 [facility] Comment on above: Performed By: #### L IPA, CMP, CRP, NAT #### [facility] [address] [place] [address] Dr. Keturah Fisher CRPon 12-13-2021 CRP [Mass/Vol] mg/L Normal <=1.0 [facility] Comment on above: Performed By: #### L IPA, CMP, CRP, NTA #### [facility] [address] [place] [address] ABD/PELV W CONon 12-14-[address] ABD/PELV W CON EXAMINATION: CT ABD/ [...] by: AGUSTIN HIGHTOWER Date: 2021-12-13 20:50 Normal [facility] LIPASEon 12-13-2021 Lipase [Catalytic activity/Vol] 1496.0 U/L Critically high 73.0-393.0 [facility] Comment on above: Performed By: #### L IPA, CMP, CRP, NAT #### [facility] [address] [place], [place] [address] Dr. Keturah Fisher PROF 14(COMP METB)on 022 Albumin [Mass/Vol] 4.0 g/dL Normal 3.4-5.0 [facility] Comment on above: Performed By: #### L IPA, CMP, CRP, NAT #### [facility] [address] [place], [place] [address] Dr. Keturah Fisher Albumin/Globulin [Mass ratio] 1.0 {ratio} Normal [facility] Comment on above: Performed By: #### L IPA, CMP, CRP, NAT #### [facility] [address] [place] [address] Dr. Keturah Fisher ALP [Catalytic activity/Vol] 166 U/L Critically high 46-116 [facility] Comment on above: Performed By: #### L IPA, CMP, CRP, NAT #### [facility] [address] [place] [address] Dr. Keturah Fisher ALT [Catalytic activity/Vol] 19 U/L Normal 14-59 [facility] Comment on above: Performed By: #### L IPA, CMP, CRP, NAT #### [facility] [address] [place] [address] Dr. Keturah Fisher Anion gap [Moles/Vol] 9.5 mmol/L Normal [facility] Comment on above: Performed By: #### L IPA, CMP, CRP, NAT #### [facility] [address] [place] [address] Dr. Keturah Fisher AST [Catalytic activity/Vol] 16 U/L Normal 15-37 [facility] Comment on above: Performed By: #### L IPA, CMP, CRP, NAT #### [facility] [address] [place] [address] Dr. Keturah Fisher Bilirubin [Mass/Vol] 0.1 mg/dL Critically low 0.2-1.0 [facility] Comment on above: Performed By: #### L IPA, CMP, CRP, NAT #### [facility] [address] [place] [address] Dr. Keturah Fisher Calcium [Mass/Vol] 9.6 mg/dL Normal 8.5-10.1 [facility] Comment on above: Performed By: #### L IPA, CMP, CRP, NAT #### [facility] [address] [place] [address] Dr. Keturah Fisher Chloride [Moles/Vol] 104 mmol/L Normal 98-107 [facility] Comment on above: Performed By: #### L IPA, CMP, CRP, NAT #### [facility] [address] [address] [address] Keturah Fisher CO2 [Moles/Vol] 29.7 mmol/L Normal 21.0-32.0 [facility] Comment on above: Performed By: #### L IPA, CMP, CRP, NAT #### [facility] [address] [address] [address] Keturah Fisher Creatinine [Mass/Vol] 0.85 mg/dL Normal 0.55-1.02 [facility] Comment on above: Performed By: #### L IPA, CMP, CRP, NAT #### [facility] [address] [address] [address] Keturah Fisher EGFR-AF BENINESE >60 Normal >=60 [facility] Comment on above: Performed By: #### L IPA, CMP, CRP, NAT #### [facility] [address] [place] [address] Dr. Keturah Fisher EGFR-NON AF BENINESE >60 Normal >=60 [facility] Comment on above: Performed By: #### L IPA, CMP, CRP, NAT #### [facility] [address] [address] [address] Keturah Fisher Globulin (S) [Mass/Vol] 3.9 g/dL Normal [facility] Comment on above: Performed By: #### L IPA, CMP, CRP, NAT #### [facility] [address] [address] [address] Keturah Fisher Glucose [Mass/Vol] 70 mg/dL Critically low 74-[address] [facility] Comment on above: Performed By: #### L IPA, CMP, CRP, NAT #### [facility] [address] [address] [address] Keturah Fisher Potassium [Moles/Vol] 3.2 mmol/L Critically low 3.5-5.1 [facility] Comment on above: Performed By: #### L IPA, CMP, CRP, NAT #### [facility] [address] [address] [address] Keturah Fisher Protein [Mass/Vol] 7.9 g/dL Normal 6.4-8.2 [facility] Comment on above: Performed By: #### L IPA, CMP, CRP, NAT #### [facility] [address] [place] [address] Dr. Keturah Fisher Sodium [Moles/Vol] 140 mmol/L Normal 136-145 [facility] Comment on above: Performed By: #### L IPA, CMP, CRP, NAT #### [facility] [address] [place] [address] Dr. Keturah Fisher Urea nitrogen [Mass/Vol] 8.0 mg/dL Normal 7.0-18.0 [facility] Comment on above: Performed By: #### L IPA, CMP, CRP, NAT #### [facility] [address] [place] [address] Dr. Keturah Fisher Urea nitrogen/Creatinine [Mass ratio] 9.4 mg/mg Normal [facility] Comment on above: Performed By: #### L IPA, CMP, CRP, NAT #### [facility] [address] [place] [address] Dr. Keturah Fisher AMYLASEon 12-05-2021 Amylase [Catalytic activity/Vol] 223 U/L Critically high 25-115 [facility] Comment on above: Performed By: #### L IPA, CMP, CRP, NAT #### [facility] [address] [place] [address] Dr. Keturah Fisher CBC AUTO DIFFon 12-05-2021 BASO # 0.1 103/ul Normal 0.0-0.1 [facility] Comment on above: Performed By: #### C BC #### [facility] [address] [place] [address] Dr. Keturah Fisher Basophils/100 WBC (Bld) 0.7 % Normal 0.2-2.0 [facility] Comment on above: Performed By: #### C BC #### [facility] [address] [place] [address] Dr. Keturah Fisher EO # 0.2 103/ul Normal 0.0-0.7 [facility] Comment on above: Performed By: #### C BC #### [facility] [address] [place] [address] Dr. Keturha Fisher Eosinophils/100 WBC (Bld) 1.7 % Normal 0.9-7.0 [facility] Comment on above: Performed By: #### C BC #### [facility] [address] [place] [address] Dr. Keturah Fisher Erythrocyte distribution width (RBC) [Ratio] 13.0 % Normal 11.0-15.0 [facility] Comment on above: Performed By: #### C BC #### [facility] [address] [place] [address] Dr. Keturah Fisher Hematocrit (Bld) [Volume fraction] 44.9 % Normal 36.0-48.0 [facility] Comment on above: Performed By: #### C BC #### [facility] [address] [place] [address] Dr. Keturah Fisher Hemoglobin (Bld) [Mass/Vol] 15.1 g/dL Normal 12.0-16.0 [facility] Comment on above: Performed By: #### C BC #### [facility] [address] [place] [address] Dr. Keturah Fisher IG # 0.02 10e3/ul Normal 0.00-0.03 [facility] Comment on above: Performed By: #### C BC #### [facility] [address] [place] [address] Dr. Keturah Fisher IG % 0.2 % Normal 0.0-0.5 [facility] Comment on above: Performed By: #### C BC #### [facility] [address] [place] [address] Dr. Keturah Fisher LYMPH # 2.8 103/ul Normal 1.2-3.8 [facility] Comment on above: Performed By: #### C BC #### [facility] [address] [place] [address] Dr. Keturah Fisher Lymphocytes/100 WBC (Bld) 29.8 % Normal 20.5-60.0 [facility] Comment on above: Performed By: #### C BC #### [facility] [address] [place] [address] Dr. Keturah Fisher MANUAL DIFF REQ NO Normal [facility] Comment on above: Performed By: #### C BC #### [facility] [address] [place] [address] Dr. Keturah Fisher MCH (RBC) [Entitic mass] 32.4 pg Normal 26.7-34.0 [facility] Comment on above: Performed By: #### C BC #### [facility] [address] [place] [address] Dr. Keturah Fisher MCHC (RBC) [Mass/Vol] 33.6 g/dL Normal 29.9-35.2 [facility] Comment on above: Performed By: #### C BC #### [facility] [address] [place] [address] Dr. Keturah Fisher MCV (RBC) [Entitic vol] 96.4 fL Normal 81.0-99.0 [facility] Comment on above: Performed By: #### C BC #### [facility] [address] [place] [address] Dr. Keturah Fisher MONO # 0.6 103/ul Normal 0.3-0.8 [facility] Comment on above: Performed By: #### C BC #### [facility] [address] [place] [address] Dr. Keturah Fisher Monocytes/100 WBC (Bld) 6.3 % Normal 1.7-12.0 [facility] Comment on above: Performed By: #### C BC #### [facility] [address] [place] [address] Dr. Keturah Fisher NEUT # 5.7 103/ul Normal 1.4-6.5 [facility] Comment on above: Performed By: #### C BC #### [facility] [address] [place] [address] Dr. Keturah Fisher Neutrophils/100 WBC (Bld) 61.3 % Normal 43.0-75.0 [facility] Comment on above: Performed By: #### C BC #### [facility] [address] [place] [address] Dr. Keturah Fisher Platelet mean volume (Bld) [Entitic vol] 10.7 fL Normal 9.5-13.5 [facility] Comment on above: Performed By: #### C BC #### [facility] [address] [place] [address] Dr. Keturah iFsher PLT 217 103/ul Normal 150-450 [facility] Comment on above: Performed By: #### C BC #### [facility] [address] [place] [address] Dr. Keturah Fisher RBC 4.66 106/ul Normal 4.20-5.40 [facility] Comment on above: Performed By: #### C BC #### [facility] [address] [place] [address] Dr. Keturah Fisher WBC 9.2 103/ul Normal 4.0-11.0 [facility] Comment on above: Performed By: #### C BC #### [facility] [address] [place] [address] Dr. Keturah Fisher LIPASEon 12-05-2021 Lipase [Catalytic activity/Vol] 725.0 U/L Critically high 73.0-393.0 [facility] Comment on above: Performed By: #### L IPA, CMP, CRP, NAT #### [facility] [address] [place] [address] Dr. Keturah Fisher PROF 14(COMP METB)on 022 Albumin [Mass/Vol] 4.2 g/dL Normal 3.4-5.0 [facility] Comment on above: Performed By: #### L IPA, CMP, CRP, NAT #### [facility] [address] [place] [address] Dr. Keturah Fisher Albumin/Globulin [Mass ratio] 1.2 {ratio} Normal [facility] Comment on above: Performed By: #### L IPA, CMP, CRP, NAT #### [facility] [address] [place] [address] Dr. Keturah Fisher ALP [Catalytic activity/Vol] 158 U/L Critically high 46-116 [facility] Comment on above: Performed By: #### L IPA, CMP, CRP, NAT #### [facility] [address] [address] [address] Keturah Fisher ALT [Catalytic activity/Vol] 20 U/L Normal 14-59 [facility] Comment on above: Performed By: #### L IPA, CMP, CRP, NAT #### [facility] [address] [address] [address] Keturah Fisher Anion gap [Moles/Vol] 14.0 mmol/L Normal [facility] Comment on above: Performed By: #### L IPA, CMP, CRP, NAT #### [facility] [address] [address] [address] Keturah Fisher AST [Catalytic activity/Vol] 27 U/L Normal 15-37 [facility] Comment on above: Performed By: #### L IPA, CMP, CRP, ANT #### [facility] [address] [address] [address] Keturah Fisher Bilirubin [Mass/Vol] 0.3 mg/dL Normal 0.2-1.0 [facility] Comment on above: Performed By: #### L IPA, CMP, CRP, NAT #### [facility] [address] [address] [address] Keturah Fisher Calcium [Mass/Vol] 10.1 mg/dL Normal 8.5-10.1 [facility] Comment on above: Performed By: #### L IPA, CMP, CRP, NAT #### [facility] [address] [address] [address] Keturah Fisher Chloride [Moles/Vol] 105 mmol/L Normal 98-107 [facility] Comment on above: Performed By: #### L IPA, CMP, CRP, NAT #### [facility] [address] [address] [address] Keturah Fisher CO2 [Moles/Vol] 24.9 mmol/L Normal 21.0-32.0 [facility] Comment on above: Performed By: #### L IPA, CMP, CRP, NAT #### [facility] [address] [address] [address] Keturah Fisher Creatinine [Mass/Vol] 0.77 mg/dL Normal 0.55-1.02 [facility] Comment on above: Performed By: #### L IPA, CMP, CRP, NAT #### [facility] [address] [place] [address] Dr. Keturah Fisher EGFR-AF BENINESE >60 Normal >=60 [facility] Comment on above: Performed By: #### L IPA, CMP, CRP, NAT #### [facility] [address] [place] [address] Dr. Keturah Fisher EGFR-NON AF BENINESE >60 Normal >=60 [facility] Comment on above: Performed By: #### L IPA, CMP, CRP, NAT #### [facility] [address] [place] [address] Dr. Keturah Fisher Globulin (S) [Mass/Vol] 3.5 g/dL Normal [facility] Comment on above: Performed By: #### L IPA, CMP, CRP, NAT #### [facility] [address] [place] [address] Dr. Keturah Fisher Glucose [Mass/Vol] 91 mg/dL Normal 74-106 [facility] Comment on above: Performed By: #### L IPA, CMP, CRP, NAT #### [facility] [address] [place] [address] Dr. Keturah Fisher Potassium [Moles/Vol] 3.9 mmol/L Normal 3.5-5.1 [facility] Comment on above: Performed By: #### L IPA, CMP, CRP, NAT #### [facility] [address] [place] [address] Dr. Keturah Fisher Protein [Mass/Vol] 7.7 g/dL Normal 6.4-8.2 [facility] Comment on above: Performed By: #### L IPA, CMP, CRP, NAT #### [facility] [address] [place] [address] Dr. Keturah Fisher Sodium [Moles/Vol] 140 mmol/L Normal 136-145 [facility] Comment on above: Performed By: #### L IPA, CMP, CRP, NAT #### [facility] [address] [place] [address] Dr. Keturah Fisher Urea nitrogen [Mass/Vol] 8.0 mg/dL Normal 7.0-18.0 [facility] Comment on above: Performed By: #### L IPA, CMP, CRP, NAT #### [facility] [address] [place] [address] Dr. Keturah Fisher Urea nitrogen/Creatinine [Mass ratio] 10.4 mg/mg Normal [facility] Comment on above: Performed By: #### L IPA, CMP, CRP, NAT #### [facility] [address] [place] [address] Dr. Keturah Fisher AMYLASEon 10-11-2021 Amylase [Catalytic activity/Vol] 134 U/L Critically high 25-115 [facility] Comment on above: Performed By: #### C BC #### [facility] [address] [place] [address] Dr. Keturah Fisher CBC AUTO DIFFon 10-11-2021 BASO # 0.1 103/ul Normal 0.0-0.1 [facility] Comment on above: Performed By: #### L IPA, CMP, CRP, NAT #### [facility] [address] [place] [address] Dr. Keturah Fisher Basophils/100 WBC (Bld) 1.0 % Normal 0.2-2.0 [facility] Comment on above: Performed By: #### L IPA, CMP, CRP, NAT #### [facility] [address] [place] [address] Dr. Keturah Fisher EO # 0.2 103/ul Normal 0.0-0.7 [facility] Comment on above: Performed By: #### L IPA, CMP, CRP, NAT #### [facility] [address] [place] [address] Dr. Keturah Fisher Eosinophils/100 WBC (Bld) 2.0 % Normal 0.9-7.0 [facility] Comment on above: Performed By: #### L IPA, CMP, CRP, NAT #### [facility] [address] [address] [address] Keturah Fisher Erythrocyte distribution width (RBC) [Ratio] 13.2 % Normal 11.0-15.0 [facility] Comment on above: Performed By: #### L IPA, CMP, CRP, NAT #### [facility] [address] [place] [address] Dr. Keturah Fisher Hematocrit (Bld) [Volume fraction] 44.7 % Normal 36.0-48.0 [facility] Comment on above: Performed By: #### L IPA, CMP, CRP, NAT #### [facility] [address] [place] [address] Dr. Keturah Fisher Hemoglobin (Bld) [Mass/Vol] 15.0 g/dL Normal 12.0-16.0 [facility] Comment on above: Performed By: #### L IPA, CMP, CRP, NAT #### [facility] [address] [place] [address] Dr. Keturah Fisher IG # 0.02 10e3/ul Normal 0.00-0.03 [facility] Comment on above: Performed By: #### L IPA, CMP, CRP, NAT #### [facility] [address] [place] [address] Dr. Keturah Fisher IG % 0.2 % Normal 0.0-0.5 [facility] Comment on above: Performed By: #### L IPA, CMP, CRP, NAT #### [facility] [address] [place] [address] Dr. Keturah Fisher LYMPH # 4.1 103/ul Critically high 1.2-3.8 [facility] Comment on above: Performed By: #### L IPA, CMP, CRP, NAT #### [facility] [address] [place] [address] Dr. Keturah Fisher Lymphocytes/100 WBC (Bld) 38.9 % Normal 20.5-60.0 [facility] Comment on above: Performed By: #### L IPA, CMP, CRP, NAT #### [facility] [address] [place] [address] Dr. Keturah Fisher MANUAL DIFF REQ NO Normal [facility] Comment on above: Performed By: #### L IPA, CMP, CRP, NAT #### [facility] [address] [place] [address] Dr. Keturah Fisher MCH (RBC) [Entitic mass] 32.1 pg Normal 26.7-34.0 [facility] Comment on above: Performed By: #### L IPA, CMP, CRP, NAT #### [facility] [address] [place] [address] Dr. Keturah Fisher MCHC (RBC) [Mass/Vol] 33.6 g/dL Normal 29.9-35.2 [facility] Comment on above: Performed By: #### L IPA, CMP, CRP, ANT #### [facility] [address] [place] [address] Dr. Keturah Fisher MCV (RBC) [Entitic vol] 95.7 fL Normal 81.0-99.0 [facility] Comment on above: Performed By: #### L IPA, CMP, CRP, NAT #### [facility] [address] [place] [address] Dr. Keturah Fisher MONO # 0.9 103/ul Critically high 0.3-0.8 [facility] Comment on above: Performed By: #### L IPA, CMP, CRP, NAT #### [facility] [address] [place] [address] Dr. Keturah Fisher Monocytes/100 WBC (Bld) 8.8 % Normal 1.7-12.0 [facility] Comment on above: Performed By: #### L IPA, CMP, CRP, NAT #### [facility] [address] [place] [address] Dr. Keturah Fisher NEUT # 5.2 103/ul Normal 1.4-6.5 [facility] Comment on above: Performed By: #### L IPA, CMP, CRP, NAT #### [facility] [address] [place] [address] Dr. Keturah Fisher Neutrophils/100 WBC (Bld) 49.1 % Normal 43.0-75.0 [facility] Comment on above: Performed By: #### L IPA, CMP, CRP, NAT #### [facility] [address] [place] [address] Dr. Keturah Fisher Platelet mean volume (Bld) [Entitic vol] 9.8 fL Normal 9.5-13.5 [facility] Comment on above: Performed By: #### L IPA, CMP, CRP, NAT #### [facility] [address] [place] [address] Dr. Keturah Fisher PLT 299 103/ul Normal 150-450 [facility] Comment on above: Performed By: #### L IPA, CMP, CRP, NAT #### [facility] [address] [place] [address] Dr. Keturah Fisher RBC 4.67 106/ul Normal 4.20-5.40 [facility] Comment on above: Performed By: #### L IPA, CMP, CRP, NAT #### [facility] [address] [place] [address] Dr. Keturah Fisher WBC 10.5 103/ul Normal 4.0-11.0 [facility] Comment on above: Performed By: #### L IPA, CMP, CRP, NAT #### [facility] [address] [place] [address] Dr. Keturah Fisher LIPASEon 10-11-2021 Lipase [Catalytic activity/Vol] 240.0 U/L Normal 73.0-393.0 [facility] Comment on above: Performed By: #### C BC #### [facility] [address] [place] [address] Dr. Keturah Fisher PROF 14(COMP METB)on 022 Albumin [Mass/Vol] 4.3 g/dL Normal 3.4-5.0 [facility] Comment on above: Performed By: #### C BC #### [facility] [address] [place] [address] Dr. Keturah Fisher Albumin/Globulin [Mass ratio] 1.3 {ratio} Normal [facility] Comment on above: Performed By: #### C BC #### [facility] [facility] [address] [place] [address] Dr. Keturah Fisher ALP [Catalytic activity/Vol] 162 U/L Critically high 46-116 [facility] Comment on above: Performed By: #### C BC #### [facility] [address] [address] [address] Keturah Fisher ALT [Catalytic activity/Vol] 21 U/L Normal 14-59 [facility] Comment on above: Performed By: #### C BC #### [facility] [address] [address] [address] Keturah Fisher Anion gap [Moles/Vol] 15.1 mmol/L Normal [facility] Comment on above: Performed By: #### C BC #### [facility] [address] [address] [address] Keturah Fisher AST [Catalytic activity/Vol] 16 U/L Normal 15-37 [facility] Comment on above: Performed By: #### C BC #### [facility] [address] [place] [address] Dr. Keturah Fisher Bilirubin [Mass/Vol] 0.2 mg/dL Normal 0.2-1.0 [facility] Comment on above: Performed By: #### C BC #### [facility] [address] [place] [address] Dr. Keturah Fisher Calcium [Mass/Vol] 9.6 mg/dL Normal 8.5-10.1 [facility] Comment on above: Performed By: #### C BC #### [facility] [address] [place] [address] Dr. Keturah Fisher Chloride [Moles/Vol] 104 mmol/L Normal 98-107 [facility] Comment on above: Performed By: #### C BC #### [facility] [address] [place] [address] Dr. Keturah Fisher CO2 [Moles/Vol] 24.6 mmol/L Normal 21.0-32.0 [facility] Comment on above: Performed By: #### C BC #### [facility] [address] [place] [address] Dr. Keturah Fisher Creatinine [Mass/Vol] 0.88 mg/dL Normal 0.55-1.02 [facility] Comment on above: Performed By: #### C BC #### [facility] [address] [address] [address] Keturah Fisher EGFR-AF BENINESE >60 Normal >=60 [facility] Comment on above: Performed By: #### C BC #### [facility] [id number] Keturah Fisher EGFR-NON AF BENINESE >60 Normal >=60 [facility] Comment on above: Performed By: #### C BC #### [facility] [address] [address] [address] Keturah Fisher Globulin (S) [Mass/Vol] 3.3 g/dL Normal [facility] Comment on above: Performed By: #### C BC #### [facility] [address] [address] [address] Keturah Fisher Glucose [Mass/Vol] 111 mg/dL Critically high 74-106 [facility] Comment on above: Performed By: #### C BC #### [facility] [address] [address] [address] Keturah Fisher Potassium [Moles/Vol] 3.7 mmol/L Normal 3.5-5.1 [facility] Comment on above: Performed By: #### C BC #### [facility] [address] [place] [address] Dr. Keturah Fisher Protein [Mass/Vol] 7.6 g/dL Normal 6.4-8.2 [facility] Comment on above: Performed By: #### C BC #### [facility] [address] [address] [address] Keturah Fisher Sodium [Moles/Vol] 140 mmol/L Normal 136-145 [facility] Comment on above: Performed By: #### C BC #### [facility] [address] [place] [address] Dr. Keturah Fisher Urea nitrogen [Mass/Vol] 11.0 mg/dL Normal 7.0-18.0 [facility] Comment on above: Performed By: #### C BC #### [facility] [address] [address] [address] Keturah Fisher Urea nitrogen/Creatinine [Mass ratio] 12.5 mg/mg Normal [facility] Comment on above: Performed By: #### C BC #### [facility] [address] [place], [place] [address] Dr. Keturah Fisher PROTIMEon 10-11-2021 INR Coag (PPP) [Relative time] 0.94 {INR} Normal [facility] Comment on above: Performed By: #### P T, PTT ####[facility] [id number] [phone] Fisher INR GUIDELINES SEE BELOW Normal [facility] Comment on above: Result Comment: KARLY RED INR: 2.0 - 3.0 CONDITIONS NOT LISTED BELOW 2.5 - 3.5 FOR PROSTHETIC HEART VALVE REPLACEMENT 2.5 - 3.5 RECURRENT THROMBOSIS Performed By: #### P T, PTT ####[facility] [id number] [id number] Fisher PT Coag (PPP) [Time] 10.2 s Normal 9.0-11.6 [facility] Comment on above: Performed By: #### P T, PTT ####[facility] [id number] [id number]. Keturah Fisher PTTon 10-11-2021 aPTT Coag (Bld) [Time] 28.0 s Normal 22.3-36.[address] [facility] Comment on above: Performed By: #### P T, PTT ####[facility] [id number] [id number] Fisher Amphetamine Screen Ql (U)Ord ered By: Christa Lopez on 10-09-2021 Amphetamines Ql (U) Negative Negative [facility] Barbiturates [Presence] in U rineOrdered By: Christa Lopez on 10-09-2021 Barbiturates Ql (U) Negative Negative [facility] Basophils Auto (Bld) [#/Vol] Ordered By: Christa Lopez on 10-09-2021 Basophils (Bld) [#/Vol] 0.1 10*3/uL 0.0-0.2 [facility] Basophils/100 WBC Auto (Bld) Ordered By: Christa Lopez on 10-09-2021 Basophils/100 WBC (Bld) 0.9 % . [facility] Benzodiazepines [Presence] i n UrineOrdered By: Christa Lopez on 10-09-2021 Benzodiazepines Ql (U) Negative Negative [facility] Bilirubin Auto test strip Ql (U)Ordered By: Christa Lopez on 10-09-2021 Bilirubin Ql (U) Negative Negative [facility] Blood hemoglobin measurement (mass/volume)Ordered By: Christa Lopez on 10-09-2021 Hemoglobin (Bld) [Mass/Vol] 15.7 g/dL 11.8-15.4 [facility] Blood leukocytes automated c ount (number/volume)Ordered By: Christa Lopez on 10-09-2021 WBC (Bld) [#/Vol] 10.1 10*3/uL 4.5-11.0 [facility] Body fluid albumin measureme nt (mass/volume)Ordered By: Christa Lopez on 10-09-2021 Albumin (Body fld) [Mass/Vol] 4.5 g/dL 3.2-5.5 [facility] Cannabinoids [Presence] in U rine by Screen methodOrdered By: Christa Lopez on 10-09-2021 Cannabinoids Screen Ql (U) Negative Negative [facility] Comment on above: These are unconfirme d results and should not be used for legal purposes. Drug Cut-Off Concentration: AMPH 1000 ng/mL BAILEY 200 ng/mL JAKE 200 ng/mL COCM 300 ng/mL OP 300 ng/mL PCP 25 ng/mL THC 20 ng/mL Creatinine and Glomerular fi ltration rate.predicted panel (S/P/Bld)Ordered By: Christa Lopez on 10-09-2021 Creatinine [Mass/Vol] 0.85 mg/dL 0.44-1.03 [facility] Eosinophils Auto (Bld) [#/Vo l]Ordered By: Christa Lopez on 10-09-2021 Eosinophils (Bld) [#/Vol] 0.1 10*3/uL 0.0-0.45 [facility] Eosinophils/100 WBC Auto (Bl d)Ordered By: Christa Lopez on 10-09-2021 Eosinophils/100 WBC (Bld) 1.2 % . [facility] Erythrocyte distribution wid th Auto (RBC) [Ratio]Ordered By: Christa Lopez on 10-09-2021 Erythrocyte distribution width (RBC) [Ratio] 13.5 % 11.9-15.3 [facility] Estimated glomerular filtrat ion rate (GFR) non- AmericanOrdered By: Christa Lopez on 10-09-2021 GFR/1.73 sq M.predicted among non-blacks MDRD (S/P/Bld) [Vol rate/Area] > 60 mL/Min [facility] Globulin Calc (S) [Mass/Vol] Ordered By: Christa Lopez on 10-09-2021 Globulin (S) [Mass/Vol] 2.9 g/dL [facility] Hematocrit Auto (Bld) [Volum e fraction]Ordered By: Christa Lopez on 10-09-2021 Hematocrit (Bld) [Volume fraction] 47.1 % 34.0-46.4 [facility] Ketones Auto test strip (U) [Mass/Vol]Ordered By: Christa Lopez on 10-09-2021 Ketones (U) [Mass/Vol] Negative Negative [facility] Laboratory - Chemistry and C hemistry - challengeOrdered By: Christa Lopez on 10-09-2021 Lipase [Catalytic activity/Vol] 242.0 U/L 22-51 [facility] Laboratory - Drug toxicology Ordered By: Christa Lopez on 10-09-2021 Opiates Ql (U) Negative Negative [facility] Laboratory - Hematology and Cell countsOrdered By: Christa Lopez on 10-09-2021 Nucleated RBC/100 WBC (Bld) [Ratio] 0.1 % 0-0.5 [facility] Lymphocytes Auto (Bld) [#/Vo l]Ordered By: Christa Lopez on 10-09-2021 Lymphocytes (Bld) [#/Vol] 2.6 10*3/uL 1.00-4.8 [facility] Lymphocytes/100 WBC Auto (Bl d)Ordered By: Christa Lopez on 10-09-2021 Lymphocytes/100 WBC (Bld) 26.0 % . [facility] MCH Auto (RBC) [Entitic mass ]Ordered By: Christa Lopez on 10-09-2021 MCH (RBC) [Entitic mass] 32.4 pg 24.7-34.3 [facility] MCHC Auto (RBC) [Mass/Vol]Or dered By: Christa Lopez on 10-09-2021 MCHC (RBC) [Mass/Vol] 33.3 g/dL 32.0-35.0 [facility] MCV Auto (RBC) [Entitic vol] Ordered By: Christa Lopez on 10-09-2021 MCV (RBC) [Entitic vol] 97.3 fL 80-100 [facility] Monocytes Auto (Bld) [#/Vol] Ordered By: Christa Lopez on 10-09-2021 Monocytes (Bld) [#/Vol] 0.8 10*3/uL 0.0-0.8 [facility] Monocytes/100 WBC Auto (Bld) Ordered By: Christa Lopez on 10-09-2021 Monocytes/100 WBC (Bld) 7.6 % . [facility] Neutrophils Auto (Bld) [#/Vo l]Ordered By: Christa Lopez on 10-09-2021 Neutrophils (Bld) [#/Vol] 6.5 10*3/uL 1.8-7.7 [facility] Neutrophils/100 WBC Auto (Bl d)Ordered By: Christa Lopez on 10-09-2021 Neutrophils/100 WBC (Bld) 64.3 % . [facility] No Panel InformationOrdered By: Christa Lopez on 10-09-2021 Estimated GFR () > 60 mL/Min [facility] Comment on above: GFR estimated refere nce range: According to KDOQI guidelines, <60 ml/min/1.73m2 is sufficient to diagnose a patient with chronic kidney disease. Pharmacy Creatinine Clearance (Chem 61.23 [facility] Phencyclidine Screen Ql (U)O rdered By: Christa Lopez on 10-09-2021 Phencyclidine Ql (U) Negative Negative [facility] Platelet mean volume Auto (B ld) [Entitic vol]Ordered By: Christa Lopez on 10-09-2021 Platelet mean volume (Bld) [Entitic vol] 8.5 fL 6.3-10.7 [facility] Platelets Auto (Bld) [#/Vol] Ordered By: Christa Lopez on 10-09-2021 Platelets (Bld) [#/Vol] 284 10*3/uL 150-450 [facility] Protein Auto test strip (U) [Mass/Vol]Ordered By: Christa Lopez on 10-09-2021 Protein (U) [Mass/Vol] Negative Negative [facility] Protein [Mass/volume] in Ser um or PlasmaOrdered By: Christa Lopez on 10-09-2021 Protein [Mass/Vol] 7.4 g/dL 6.1-7.9 [facility] RBC Auto (Bld) [#/Vol]Ordere d By: Christa Lopez on 10-09-2021 RBC (Bld) [#/Vol] 4.84 10*6/uL 3.60-5.00 [facility] Serum or plasma alanine hughes otransferase measurement without P-5'-P (enzymatic activiOrdered By: Christa Lopez on 10-09-2021 ALT No additional P-5'-P [Catalytic activity/Vol] 19 U/L 10-60 [facility] Serum or plasma albumin/glob ulin mass ratioOrdered By: Christa Lopez on 10-09-2021 Albumin/Globulin [Mass ratio] 1.6 {ratio} [facility] Serum or plasma alkaline jaqueline sphatase measurement (enzymatic activity/volume)Ordered By: Christa Lopez on 10-09-2021 ALP [Catalytic activity/Vol] 138 U/L 32-92 [facility] Serum or plasma aspartate am inotransferase measurement (enzymatic activity/volume)Ordered By: Christa Lopez on 10-09-2021 AST [Catalytic activity/Vol] 31 U/L 10-42 [facility] Serum or plasma calcium priscilla urement (mass/volume)Ordered By: Christa Lopez on 10-09-2021 Calcium [Mass/Vol] 10.3 mg/dL 8.2-10.2 [facility] Serum or plasma chloride daron surement (moles/volume)Ordered By: Christa Lopez on 10-09-2021 Chloride [Moles/Vol] 100 mmol/L 95-114 [facility] Serum or plasma glucose priscilla urement (mass/volume)Ordered By: Christa Lopez on 10-09-2021 Glucose [Mass/Vol] 75 mg/dL 70-100 [facility] Comment on above: ADA recommended refe rence range Random Glucose Reference Range is dependent on time and content of last meal. Glucose of more than 200 mg/dL in a nonstressed, ambulatory subject supports the diagnosis of Diabetes Mellitus. Serum or plasma potassium me asurement (moles/volume)Ordered By: Christa Lopez on 10-09-2021 Potassium [Moles/Vol] 3.9 mmol/L 3.5-5.1 [facility] Serum or plasma sodium measu rement (moles/volume)Ordered By: Christa Lopez on 10-09-2021 Sodium [Moles/Vol] 136 mmol/L 136-146 [facility] Serum or plasma total biliru bin measurement (mass/volume)Ordered By: Christa Lopez on 10-09-2021 Bilirubin [Mass/Vol] 0.4 mg/dL 0.3-1.2 [facility] Serum or plasma total carbon dioxide measurement (moles/volume)Ordered By: Christa Lopez on 10-09-2021 CO2 [Moles/Vol] 24.1 mmol/L 22.0-30.0 [facility] Serum or plasma urea nitroge n measurement (mass/volume)Ordered By: Christa Lopez on 10-09-2021 Urea nitrogen [Mass/Vol] 12 mg/dL 9-23 [facility] Troponin I.cardiac [Mass/vol ume] in Serum or Plasma by High sensitivity methodOrdered By: Christa Lopez on 10-09-2021 Troponin I.cardiac High sensitivity method [Mass/Vol] 3 pg/mL 0-15 [facility] Urine appearanceOrdered By: Christa Lopez on 10-09-2021 Appearance (U) Clear Clear [facility] Urine cocaine detectionOrder ed By: Christa Lopez on 10-09-2021 Cocaine Ql (U) Negative Negative [facility] Urine colorOrdered By: Christa Lopez on 10-09-2021 Color (U) Yellow Yellow [facility] Urine glucose measurement by automated test strip (mass/volume)Ordered By: Christa Lopez on 10-09-2021 Glucose Auto test strip (U) [Mass/Vol] Normal mg/dL Normal [facility] Urine hemoglobin detection b y automated test stripOrdered By: Christa Lopez on 10-09-2021 Hemoglobin Auto test strip Ql (U) Negative Negative [facility] Urine leukocyte esterase det ection by automated test stripOrdered By: Christa Lopez on 10-09-2021 Leukocyte esterase Auto test strip Ql (U) Negative Negative [facility] Urine nitrite detection by a utomated test stripOrdered By: Christa Lopez on 10-09-2021 Nitrite Auto test strip Ql (U) Negative Negative [facility] Urobilinogen Auto test strip (U) [Mass/Vol]Ordered By: Christa Lopez on 10-09-2021 Urobilinogen (U) [Mass/Vol] Normal mg/dL Normal [facility] pH Auto test strip (U)Ordere d By: Christa Lopez on 10-09-2021 pH (U) 1.025 [pH] 1.001-1.[address] [facility] pH (U) 5.5 [pH] 5.0-9.0 [facility] Albumin [Mass/volume] in Ser um or PlasmaOrdered By: Reinaldo Amor on 10-04-2021 Albumin [Mass/Vol] 3.6 g/dL 3.2-5.5 [facility] Basophils Auto (Bld) [#/Vol] Ordered By: Reinaldo Amor on 10-04-2021 Basophils (Bld) [#/Vol] 0.1 10*3/uL 0.0-0.2 [facility] Basophils/100 WBC Auto (Bld) Ordered By: Reinaldo Amor on 10-04-2021 Basophils/100 WBC (Bld) 0.8 % . [facility] Bilirubin Auto test strip Ql (U)Ordered By: Reinaldo Amor on 10-04-2021 Bilirubin Ql (U) Negative Negative [facility] Blood hemoglobin measurement (mass/volume)Ordered By: Reinaldo Amor on 10-04-2021 Hemoglobin (Bld) [Mass/Vol] 13.9 g/dL 11.8-15.4 [facility] Blood leukocytes automated c ount (number/volume)Ordered By: Reinaldo Amor on 10-04-2021 WBC (Bld) [#/Vol] 10.4 10*3/uL 4.5-11.0 [facility] Creatinine and Glomerular fi ltration rate.predicted panel (S/P/Bld)Ordered By: Reinaldo Amor on 10-04-2021 Creatinine [Mass/Vol] 0.73 mg/dL 0.44-1.03 [facility] Direct bilirubin measurement Ordered By: Reinaldo Amor on 10-04-2021 Bilirubin.direct [Mass/Vol] mg/dL 0.0-0.4 [facility] Eosinophils Auto (Bld) [#/Vo l]Ordered By: Reinaldo Amor on 10-04-2021 Eosinophils (Bld) [#/Vol] 0.1 10*3/uL 0.0-0.45 [facility] Eosinophils/100 WBC Auto (Bl d)Ordered By: Reinaldo Amor on 10-04-2021 Eosinophils/100 WBC (Bld) 0.5 % . [facility] Erythrocyte distribution wid th Auto (RBC) [Ratio]Ordered By: Reinaldo Amor on 10-04-2021 Erythrocyte distribution width (RBC) [Ratio] 13.7 % 11.9-15.3 [facility] Estimated glomerular filtrat ion rate (GFR) non- AmericanOrdered By: Reinaldo Amor on 10-04-2021 GFR/1.73 sq M.predicted among non-blacks MDRD (S/P/Bld) [Vol rate/Area] > 60 mL/Min [facility] Globulin Calc (S) [Mass/Vol] Ordered By: Reinaldo Amor on 10-04-2021 Globulin (S) [Mass/Vol] 2.6 g/dL [facility] Hematocrit Auto (Bld) [Volum e fraction]Ordered By: Reinaldo Amor on 10-04-2021 Hematocrit (Bld) [Volume fraction] 41.1 % 34.0-46.4 [facility] Ketones Auto test strip (U) [Mass/Vol]Ordered By: Reinaldo Amor on 10-04-2021 Ketones (U) [Mass/Vol] Negative Negative [facility] Laboratory - Chemistry and C hemistry - challengeOrdered By: Reinaldo Amor on 10-04-2021 Lipase [Catalytic activity/Vol] 107.0 U/L 22-51 [facility] Laboratory - Hematology and Cell countsOrdered By: Reinaldo Amor on 10-04-2021 Nucleated RBC/100 WBC (Bld) [Ratio] 0.1 % 0-0.5 [facility] Lymphocytes Auto (Bld) [#/Vo l]Ordered By: Reinaldo Amor on 10-04-2021 Lymphocytes (Bld) [#/Vol] 2.5 10*3/uL 1.00-4.8 [facility] Lymphocytes/100 WBC Auto (Bl d)Ordered By: Reinaldo Amor on 10-04-2021 Lymphocytes/100 WBC (Bld) 24.1 % . [facility] MCH Auto (RBC) [Entitic mass ]Ordered By: Reinaldo Amor on 10-04-2021 MCH (RBC) [Entitic mass] 32.6 pg 24.7-34.3 [facility] MCHC Auto (RBC) [Mass/Vol]Or dered By: Reinaldo Amor on 10-04-2021 MCHC (RBC) [Mass/Vol] 33.8 g/dL 32.0-35.0 [facility] MCV Auto (RBC) [Entitic vol] Ordered By: Reinaldo Amor on 10-04-2021 MCV (RBC) [Entitic vol] 96.5 fL 80-100 [facility] Monocytes Auto (Bld) [#/Vol] Ordered By: Reinaldo Amor on 10-04-2021 Monocytes (Bld) [#/Vol] 0.9 10*3/uL 0.0-0.8 [facility] Monocytes/100 WBC Auto (Bld) Ordered By: Reinaldo Amor on 10-04-2021 Monocytes/100 WBC (Bld) 8.4 % . [facility] Neutrophils Auto (Bld) [#/Vo l]Ordered By: Reinaldo Amor on 10-04-2021 Neutrophils (Bld) [#/Vol] 6.9 10*3/uL 1.8-7.7 [facility] Neutrophils/100 WBC Auto (Bl d)Ordered By: Reinaldo Amor on 10-04-2021 Neutrophils/100 WBC (Bld) 66.2 % . [facility] No Panel InformationOrdered By: Reinaldo Amor on 10-04-2021 Estimated GFR () > 60 mL/Min [facility] Comment on above: GFR estimated refere nce range: According to KDOQI guidelines, <60 ml/min/1.73m2 is sufficient to diagnose a patient with chronic kidney disease. Pharmacy Creatinine Clearance (Chem 71.30 [facility] Platelet mean volume Auto (B ld) [Entitic vol]Ordered By: Reinaldo Amor on 10-04-2021 Platelet mean volume (Bld) [Entitic vol] 8.0 fL 6.3-10.7 [facility] Platelets Auto (Bld) [#/Vol] Ordered By: Reinaldo Amor on 10-04-2021 Platelets (Bld) [#/Vol] 268 10*3/uL 150-450 [facility] Protein Auto test strip (U) [Mass/Vol]Ordered By: Reinaldo Amor on 10-04-2021 Protein (U) [Mass/Vol] Negative Negative [facility] Protein [Mass/volume] in Ser um or PlasmaOrdered By: Reinaldo Amor on 10-04-2021 Protein [Mass/Vol] 6.2 g/dL 6.1-7.9 [facility] RBC Auto (Bld) [#/Vol]Ordere d By: Reinaldo Amor on 10-04-2021 RBC (Bld) [#/Vol] 4.26 10*6/uL 3.60-5.00 [facility] Serum or plasma alanine hughes otransferase measurement without P-5'-P (enzymatic activiOrdered By: Reinaldo Amor on 10-04-2021 ALT No additional P-5'-P [Catalytic activity/Vol] 15 U/L 10-60 [facility] Serum or plasma albumin/glob ulin mass ratioOrdered By: Reinaldo Amor on 10-04-2021 Albumin/Globulin [Mass ratio] 1.4 {ratio} [facility] Serum or plasma alkaline jaqueline sphatase measurement (enzymatic activity/volume)Ordered By: Reinaldo Amor on 10-04-2021 ALP [Catalytic activity/Vol] 103 U/L 32-92 [facility] Serum or plasma amylase priscilla urement (enzymatic activity/volume)Ordered By: Reinaldo Amor on 10-04-2021 Amylase [Catalytic activity/Vol] 134 U/L 28-100 [facility] Serum or plasma aspartate am inotransferase measurement (enzymatic activity/volume)Ordered By: Reinaldo Amor on 10-04-2021 AST [Catalytic activity/Vol] 20 U/L 10-42 [facility] Serum or plasma calcium priscilla urement (mass/volume)Ordered By: Reinaldo Amor on 10-04-2021 Calcium [Mass/Vol] 9.6 mg/dL 8.2-10.2 [facility] Serum or plasma chloride daron surement (moles/volume)Ordered By: Reinaldo Amor on 10-04-2021 Chloride [Moles/Vol] 103 mmol/L 95-114 [facility] Serum or plasma ethanol priscilla urement (mass/volume)Ordered By: Reinaldo Amor on 10-04-2021 Ethanol [Mass/Vol] mg/dL [facility] Ethanol [Mass/Vol] TNP [facility] Comment on above: Test not performed Serum or plasma glucose priscilla urement (mass/volume)Ordered By: Reinaldo Amor on 10-04-2021 Glucose [Mass/Vol] 120 mg/dL 70-100 [facility] Comment on above: ADA recommended refe rence range Random Glucose Reference Range is dependent on time and content of last meal. Glucose of more than 200 mg/dL in a nonstressed, ambulatory subject supports the diagnosis of Diabetes Mellitus. Serum or plasma non-glucuron idated bilirubin measurement (mass/volume)Ordered By: Reinaldo Amor on 10-04-2021 Bilirubin.indirect [Mass/Vol] [facility] Comment on above: Test not performed Serum or plasma potassium me asurement (moles/volume)Ordered By: Reinaldo Amor on 10-04-2021 Potassium [Moles/Vol] 3.7 mmol/L 3.5-5.1 [facility] Serum or plasma sodium measu rement (moles/volume)Ordered By: Reinaldo Amor on 10-04-2021 Sodium [Moles/Vol] 137 mmol/L 136-146 [facility] Serum or plasma total biliru bin measurement (mass/volume)Ordered By: Reinaldo Amor on 10-04-2021 Bilirubin [Mass/Vol] 0.5 mg/dL 0.3-1.2 [facility] Serum or plasma total carbon dioxide measurement (moles/volume)Ordered By: Reinaldo Amor on 10-04-2021 CO2 [Moles/Vol] 24.9 mmol/L 22.0-30.0 [facility] Serum or plasma urea nitroge n measurement (mass/volume)Ordered By: Reinaldo Amor on 10-04-2021 Urea nitrogen [Mass/Vol] 7 mg/dL 11-29 [facility] Urine appearanceOrdered By: Reinaldo Amor on 10-04-2021 Appearance (U) Clear Clear [facility] Urine colorOrdered By: Ml Amor on 10-04-2021 Color (U) Yellow Yellow [facility] Urine glucose measurement by automated test strip (mass/volume)Ordered By: Reinaldo Amor on 10-04-2021 Glucose Auto test strip (U) [Mass/Vol] Normal mg/dL Normal [facility] Urine hemoglobin detection b y automated test stripOrdered By: Reinaldo Amor on 10-04-2021 Hemoglobin Auto test strip Ql (U) Negative Negative [facility] Urine leukocyte esterase det ection by automated test stripOrdered By: Reinaldo Amor on 10-04-2021 Leukocyte esterase Auto test strip Ql (U) Negative Negative [facility] Urine nitrite detection by a utomated test stripOrdered By: Reinaldo Amor on 10-04-2021 Nitrite Auto test strip Ql (U) Negative Negative [facility] Urobilinogen Auto test strip (U) [Mass/Vol]Ordered By: Reinaldo Amor on 10-04-2021 Urobilinogen (U) [Mass/Vol] Normal mg/dL Normal [facility] pH Auto test strip (U)Ordere d By: Reinaldo Amor on 10-04-2021 pH (U) 1.030 [pH] 1.001-1.[address] [facility] pH (U) 5.5 [pH] 5.0-9.0 [facility] Basophils Auto (Bld) [#/Vol] Ordered By: Reinaldo Amor on 09-25-2021 Basophils (Bld) [#/Vol] 0.1 10*3/uL 0.0-0.2 [facility] Basophils/100 WBC Auto (Bld) Ordered By: Reinaldo Amor on 09-25-2021 Basophils/100 WBC (Bld) 1.2 % . [facility] Blood hemoglobin measurement (mass/volume)Ordered By: Reinaldo Amor on 09-25-2021 Hemoglobin (Bld) [Mass/Vol] 14.2 g/dL 11.8-15.4 [facility] Blood leukocytes automated c ount (number/volume)Ordered By: Reinaldo Aomr on 09-25-2021 WBC (Bld) [#/Vol] 9.3 10*3/uL 4.5-11.0 [facility] Body fluid albumin measureme nt (mass/volume)Ordered By: PROVIDER JONATHAN on 09-25-2021 Albumin (Body fld) [Mass/Vol] 4.3 g/dL 3.2-5.5 [facility] Creatinine and Glomerular fi ltration rate.predicted panel (S/P/Bld)Ordered By: PROVIDER JONATHAN on 09-25-2021 Creatinine [Mass/Vol] 0.82 mg/dL 0.44-1.03 [facility] Eosinophils Auto (Bld) [#/Vo l]Ordered By: Reinaldo Amor on 09-25-2021 Eosinophils (Bld) [#/Vol] 0.2 10*3/uL 0.0-0.45 [facility] Eosinophils/100 WBC Auto (Bl d)Ordered By: Reinaldo Amor on 09-25-2021 Eosinophils/100 WBC (Bld) 1.9 % . [facility] Erythrocyte distribution wid th Auto (RBC) [Ratio]Ordered By: Reinaldo Amor on 09-25-2021 Erythrocyte distribution width (RBC) [Ratio] 13.7 % 11.9-15.3 [facility] Estimated glomerular filtrat ion rate (GFR) non- AmericanOrdered By: PROVIDER TEMP on 09-25-2021 GFR/1.73 sq M.predicted among non-blacks MDRD (S/P/Bld) [Vol rate/Area] > 60 mL/Min [facility] Globulin Calc (S) [Mass/Vol] Ordered By: JOSE CASTILLO on 09-25-2021 Globulin (S) [Mass/Vol] 3.3 g/dL [facility] Hematocrit Auto (Bld) [Volum e fraction]Ordered By: Reinaldo Amor on 09-25-2021 Hematocrit (Bld) [Volume fraction] 42.1 % 34.0-46.4 [facility] Laboratory - Chemistry and C hemistry - challengeOrdered By: Reinaldo Amor on 09-25-2021 Lipase [Catalytic activity/Vol] 64.0 U/L 22-51 [facility] Laboratory - Hematology and Cell countsOrdered By: Reinaldo Amor on 09-25-2021 Nucleated RBC/100 WBC (Bld) [Ratio] 0.1 % 0-0.5 [facility] Lymphocytes Auto (Bld) [#/Vo l]Ordered By: Reinaldo Amor on 09-25-2021 Lymphocytes (Bld) [#/Vol] 2.6 10*3/uL 1.00-4.8 [facility] Lymphocytes/100 WBC Auto (Bl d)Ordered By: Reinaldo Amor on 09-25-2021 Lymphocytes/100 WBC (Bld) 28.1 % . [facility] MCH Auto (RBC) [Entitic mass ]Ordered By: Reinaldo Amor on 09-25-2021 MCH (RBC) [Entitic mass] 32.5 pg 24.7-34.3 [facility] MCHC Auto (RBC) [Mass/Vol]Or dered By: Reinaldo Amor on 09-25-2021 MCHC (RBC) [Mass/Vol] 33.7 g/dL 32.0-35.0 [facility] MCV Auto (RBC) [Entitic vol] Ordered By: Reinaldo Amor on 09-25-2021 MCV (RBC) [Entitic vol] 96.7 fL 80-100 [facility] Monocytes Auto (Bld) [#/Vol] Ordered By: Reinaldo Amor on 09-25-2021 Monocytes (Bld) [#/Vol] 0.8 10*3/uL 0.0-0.8 [facility] Monocytes/100 WBC Auto (Bld) Ordered By: Reinaldo Amor on 09-25-2021 Monocytes/100 WBC (Bld) 8.2 % . [facility] Neutrophils Auto (Bld) [#/Vo l]Ordered By: Reinaldo Amor on 09-25-2021 Neutrophils (Bld) [#/Vol] 5.6 10*3/uL 1.8-7.7 [facility] Neutrophils/100 WBC Auto (Bl d)Ordered By: Reinaldo Amor on 09-25-2021 Neutrophils/100 WBC (Bld) 60.6 % . [facility] No Panel InformationOrdered By: JOSE CASTILLO on 09-25-2021 Estimated GFR () > 60 mL/Min [facility] Comment on above: GFR estimated refere nce range: According to KDOQI guidelines, <60 ml/min/1.73m2 is sufficient to diagnose a patient with chronic kidney disease. Pharmacy Creatinine Clearance (Chem 63.47 [facility] Platelet mean volume Auto (B ld) [Entitic vol]Ordered By: Reinaldo Amor on 09-25-2021 Platelet mean volume (Bld) [Entitic vol] 8.6 fL 6.3-10.7 [facility] Platelets Auto (Bld) [#/Vol] Ordered By: Reinaldo Amor on 09-25-2021 Platelets (Bld) [#/Vol] 221 10*3/uL 150-450 [facility] Protein [Mass/volume] in Ser um or PlasmaOrdered By: PROVIDER JONATHAN on 09-25-2021 Protein [Mass/Vol] 7.6 g/dL 6.1-7.9 [facility] RBC Auto (Bld) [#/Vol]Ordere d By: Reinaldo Amor on 09-25-2021 RBC (Bld) [#/Vol] 4.35 10*6/uL 3.60-5.00 [facility] Serum or plasma alanine hughes otransferase measurement without P-5'-P (enzymatic activiOrdered By: PROVIDER JONATHAN on 09-25-2021 ALT No additional P-5'-P [Catalytic activity/Vol] 14 U/L 10-60 [facility] Serum or plasma albumin/glob ulin mass ratioOrdered By: PROVIDER TEMP on 09-25-2021 Albumin/Globulin [Mass ratio] 1.3 {ratio} [facility] Serum or plasma alkaline jaqueline sphatase measurement (enzymatic activity/volume)Ordered By: PROVIDER TEMP on 09-25-2021 ALP [Catalytic activity/Vol] 127 U/L 32-92 [facility] Serum or plasma amylase priscilla urement (enzymatic activity/volume)Ordered By: Reinaldo Amor on 09-25-2021 Amylase [Catalytic activity/Vol] 171 U/L 28-100 [facility] Serum or plasma aspartate am inotransferase measurement (enzymatic activity/volume)Ordered By: PROVIDER TEMP on 09-25-2021 AST [Catalytic activity/Vol] 21 U/L 10-42 [facility] Serum or plasma calcium priscilla urement (mass/volume)Ordered By: PROVIDER TEMP on 09-25-2021 Calcium [Mass/Vol] 10.1 mg/dL 8.2-10.2 [facility] Serum or plasma chloride daron surement (moles/volume)Ordered By: PROVIDER TEMP on 09-25-2021 Chloride [Moles/Vol] 103 mmol/L 95-114 [facility] Serum or plasma glucose priscilla urement (mass/volume)Ordered By: PROVIDER TEMP on 09-25-2021 Glucose [Mass/Vol] 93 mg/dL 70-100 [facility] Comment on above: ADA recommended refe rence range Random Glucose Reference Range is dependent on time and content of last meal. Glucose of more than 200 mg/dL in a nonstressed, ambulatory subject supports the diagnosis of Diabetes Mellitus. Serum or plasma potassium me asurement (moles/volume)Ordered By: PROVIDER TEMP on 09-25-2021 Potassium [Moles/Vol] 3.9 mmol/L 3.5-5.1 [facility] Serum or plasma sodium measu rement (moles/volume)Ordered By: PROVIDER TEMP on 09-25-2021 Sodium [Moles/Vol] 137 mmol/L 136-146 [facility] Serum or plasma total biliru bin measurement (mass/volume)Ordered By: PROVIDER TEMP on 09-25-2021 Bilirubin [Mass/Vol] 0.3 mg/dL 0.3-1.2 [facility] Serum or plasma total carbon dioxide measurement (moles/volume)Ordered By: PROVIDER TEMP on 09-25-2021 CO2 [Moles/Vol] 26.3 mmol/L 22.0-30.0 [facility] Serum or plasma urea nitroge n measurement (mass/volume)Ordered By: PROVIDER TEMP on 09-25-2021 Urea nitrogen [Mass/Vol] 8 mg/dL 11-29 [facility] AMYLASEon 09-17-2021 Amylase [Catalytic activity/Vol] 142 U/L Critically high 25-115 [facility] Comment on above: Performed By: #### A MY, CMP, LIPA ####[facility] [address] [place] [address]Dr. Keturah Fisher CBC AUTO DIFFon 09-17-2021 BASO # 0.1 103/ul Normal 0.0-0.1 [facility] Comment on above: Performed By: #### C BC ####[facility] [address] [place] [address]Dr. Keturah Fisher Basophils/100 WBC (Bld) 0.7 % Normal 0.2-2.0 [facility] Comment on above: Performed By: #### C BC ####[facility] [address] [place], [place] [address]Dr. Keturah Fisher EO # 0.1 103/ul Normal 0.0-0.7 [facility] Comment on above: Performed By: #### C BC ####[facility] Xml[address]fu[address] [place], [place] [address]Dr. Keturah Fisher Eosinophils/100 WBC (Bld) 1.3 % Normal 0.9-7.0 [facility] Comment on above: Performed By: #### C BC ####[facility] U[address] [place], [place] [address]Dr. Keturah Fisher Erythrocyte distribution width (RBC) [Ratio] 13.2 % Normal 11.0-15.0 [facility] Comment on above: Performed By: #### C BC ####[facility] [address] [place] [address]Dr. Keturah Fisher Hematocrit (Bld) [Volume fraction] 43.7 % Normal 36.0-48.0 [facility] Comment on above: Performed By: #### C BC ####[facility] Phit[address] [place], [place] [address]Dr. Keturah Fisher Hemoglobin (Bld) [Mass/Vol] 14.7 g/dL Normal 12.0-16.0 [facility] Comment on above: Performed By: #### C BC ####[facility] I[address] [place], [place] [address]Dr. Elisaeli Fisher IG # 0.01 10e3/ul Normal 0.00-0.03 [facility] Comment on above: Performed By: #### C BC ####[facility] [address] [place], [place] [address]Dr. Keturah Fisher IG % 0.1 % Normal 0.0-0.5 [facility] Comment on above: Performed By: #### C BC ####[facility] [address] [place], [place] [address]Dr. Elisaeli Fisher LYMPH # 2.7 103/ul Normal 1.2-3.8 [facility] Comment on above: Performed By: #### C BC ####[facility] Diexkw[address]qv[address] [place], [place] [address]Dr. Keturah Fisher Lymphocytes/100 WBC (Bld) 30.1 % Normal 20.5-60.0 [facility] Comment on above: Performed By: #### C BC ####[facility] Ex[address] [place], [place] [address]Dr. Keturah Fisher MANUAL DIFF REQ NO Normal [facility] Comment on above: Performed By: #### C BC ####[facility] [address] [place], [place] [address]Dr. Keturah Fisher MCH (RBC) [Entitic mass] 32.4 pg Normal 26.7-34.0 [facility] Comment on above: Performed By: #### C BC ####[facility] [address] [place] [id number]. Elisaeli Fisher MCHC (RBC) [Mass/Vol] 33.6 g/dL Normal 29.9-35.2 [facility] Comment on above: Performed By: #### C BC ####[facility] [address] [place] [id number]. Keturah Fisher MCV (RBC) [Entitic vol] 96.3 fL Normal 81.0-99.0 [facility] Comment on above: Performed By: #### C BC ####[facility] [address] [place] [id number]. Keturah Fisher MONO # 0.8 103/ul Normal 0.3-0.8 [facility] Comment on above: Performed By: #### C BC ####[facility] [address] [place], [place] [address]Dr. Keturah Fisher Monocytes/100 WBC (Bld) 8.7 % Normal 1.7-12.0 [facility] Comment on above: Performed By: #### C BC ####[facility] [address] [place], [place] [address]Dr. Keturah Fisher NEUT # 5.4 103/ul Normal 1.4-6.5 [facility] Comment on above: Performed By: #### C BC ####[facility] [address] [place], [place] [address]Dr. Keturah Fisher Neutrophils/100 WBC (Bld) 59.1 % Normal 43.0-75.0 [facility] Comment on above: Performed By: #### C BC ####[facility] Qmb[address] [place], [place] [address]Dr. Keturah Fisher Platelet mean volume (Bld) [Entitic vol] 9.6 fL Normal 9.5-13.5 [facility] Comment on above: Performed By: #### C BC ####[facility] [address] [place], [place] [id number]. Keturah Fisher PLT 272 103/ul Normal 150-450 [facility] Comment on above: Performed By: #### C BC ####[facility] [address] [place], [place] [address]XlGopal Fisher RBC 4.54 106/ul Normal 4.20-5.40 [facility] Comment on above: Performed By: #### C BC ####[facility] [address] [place], [place] [address]VwGopal Fisher WBC 9.1 103/ul Normal 4.0-11.0 [facility] Comment on above: Performed By: #### C BC ####[facility] [address] [place], [place] [address]JxDr. Keturah Fisher ETHANOL (BLD ALC)on 09-18-19 22 ALC NOTE NOTE: 80 mg/dl is th e legal limit for a blood alcohol level Normal [facility] Comment on above: Performed By: #### L IPA, CMP, CRP, NAT #### [facility] [address] [place] [address] Dr. Keturah Fisher Ethanol [Mass/Vol] mg/dL Normal [facility] Comment on above: Performed By: #### L IPA, CMP, CRP, NAT #### [facility] [address] [place] [address] Dr. Keturah Fisher LIPASEon 09-17-2021 Lipase [Catalytic activity/Vol] 524.0 U/L Critically high 73.0-393.0 [facility] Comment on above: Performed By: #### C BC #### [facility] [address] [address] [address] Keturah Fisher PROF 14(COMP METB)on 022 Albumin [Mass/Vol] 3.9 g/dL Normal 3.4-5.0 [facility] Comment on above: Performed By: #### C BC #### [facility] [address] [place] [address] Dr. Keturah Fisher Albumin/Globulin [Mass ratio] 1.1 {ratio} Normal [facility] Comment on above: Performed By: #### C BC #### [facility] [address] [address] [address] Keturah Fisher ALP [Catalytic activity/Vol] 136 U/L Critically high 46-116 [facility] Comment on above: Performed By: #### C BC #### [facility] [address] [address] [address] Keturah Fisher ALT [Catalytic activity/Vol] 21 U/L Normal 14-59 [facility] Comment on above: Performed By: #### C BC #### [facility] [address] [address] [address] Keturah Fisher Anion gap [Moles/Vol] 12.7 mmol/L Normal [facility] Comment on above: Performed By: #### C BC #### [facility] [address] [address] [address] Keturah Fisher AST [Catalytic activity/Vol] 16 U/L Normal 15-37 [facility] Comment on above: Performed By: #### C BC #### [facility] [address] [address] [address] Keturah Fisher Bilirubin [Mass/Vol] 0.2 mg/dL Normal 0.2-1.0 [facility] Comment on above: Performed By: #### C BC #### [facility] [address] [address] [address] Keturah Fisher Calcium [Mass/Vol] 9.9 mg/dL Normal 8.5-10.1 [facility] Comment on above: Performed By: #### C BC #### [facility] [address] [address] [address] Keturah Fisher Chloride [Moles/Vol] 106 mmol/L Normal 98-107 [facility] Comment on above: Performed By: #### C BC #### [facility] [address] [address] [address] Keturah Fisher CO2 [Moles/Vol] 25.9 mmol/L Normal 21.0-32.0 [facility] Comment on above: Performed By: #### C BC #### [facility] [address] [address] [address] Keturah Fisher Creatinine [Mass/Vol] 0.96 mg/dL Normal 0.55-1.02 [facility] Comment on above: Performed By: #### C BC #### [facility] [address] [address] [address] Keturah Fisher EGFR-AF BENINESE >60 Normal >=60 [facility] Comment on above: Performed By: #### C BC #### [facility] [address] [address] [address] Keturah Fisher EGFR-NON AF BENINESE >60 Normal >=60 [facility] Comment on above: Performed By: #### C BC #### [facility] [address] [address] [address] Keturah Fisher Globulin (S) [Mass/Vol] 3.5 g/dL Normal [facility] Comment on above: Performed By: #### C BC #### [facility] [address] [address] [address] Keturah Fisher Glucose [Mass/Vol] 113 mg/dL Critically high 74-106 [facility] Comment on above: Performed By: #### C BC #### [facility] [address] [address] [address] Keturah Fisher Potassium [Moles/Vol] 3.6 mmol/L Normal 3.5-5.1 [facility] Comment on above: Performed By: #### C BC #### [facility] [address] [address] [address] Keturah Fisher Protein [Mass/Vol] 7.4 g/dL Normal 6.4-8.2 [facility] Comment on above: Performed By: #### C BC #### [facility] [address] [address] [address] Keturah Fisher Sodium [Moles/Vol] 141 mmol/L Normal 136-145 [facility] Comment on above: Performed By: #### C BC #### [facility] [address] [address] [address] Keturah Fisher Urea nitrogen [Mass/Vol] 8.0 mg/dL Normal 7.0-18.0 [facility] Comment on above: Performed By: #### C BC #### [facility] [address] [address] [address] Keturah Fisher Urea nitrogen/Creatinine [Mass ratio] 8.3 mg/mg Normal [facility] Comment on above: Performed By: #### C BC #### [facility] [address] [address] [address] Keturah Fisher AMYLASEon 08-26-2021 Amylase [Catalytic activity/Vol] 94 U/L Normal 25-115 [facility] Comment on above: Performed By: #### A MY, CMP, LIPA ####[facility] [address] [place] [address]Dr. Keturah Fisher CBC AUTO DIFFon 08-26-2021 BASO # 0.1 103/ul Normal 0.0-0.1 [facility] Comment on above: Performed By: #### L IPA, CMP, CRP, NAT #### [facility] [address] [place] [address] Dr. Keturah Fisher Basophils/100 WBC (Bld) 0.7 % Normal 0.2-2.0 [facility] Comment on above: Performed By: #### L IPA, CMP, CRP, NAT #### [facility] [address] [address] [address] Keturah Fisher EO # 0.2 103/ul Normal 0.0-0.7 [facility] Comment on above: Performed By: #### L IPA, CMP, CRP, NAT #### [facility] [address] [address] [address] Keturah Fisher Eosinophils/100 WBC (Bld) 2.5 % Normal 0.9-7.0 [facility] Comment on above: Performed By: #### L IPA, CMP, CRP, NAT #### [facility] [address] [address] [address] Keturah Fisher Erythrocyte distribution width (RBC) [Ratio] 13.1 % Normal 11.0-15.0 [facility] Comment on above: Performed By: #### L IPA, CMP, CRP, NAT #### [facility] [address] [place] [address] Dr. Keturah Fisher Hematocrit (Bld) [Volume fraction] 42.4 % Normal 36.0-48.0 [facility] Comment on above: Performed By: #### L IPA, CMP, CRP, NAT #### [facility] [address] [place] [address] Dr. Keturah Fisher Hemoglobin (Bld) [Mass/Vol] 14.1 g/dL Normal 12.0-16.0 [facility] Comment on above: Performed By: #### L IPA, CMP, CRP, NAT #### [facility] [address] [place] [address] Dr. Keturah Fisher IG # 0.03 10e3/ul Normal 0.00-0.03 [facility] Comment on above: Performed By: #### L IPA, CMP, CRP, NAT #### [facility] [address] [place] [address] Dr. Keturah Fisher IG % 0.3 % Normal 0.0-0.5 [facility] Comment on above: Performed By: #### L IPA, CMP, CRP, ANT #### [facility] [address] [place] [address] Dr. Keturah Fisher LYMPH # 2.6 103/ul Normal 1.2-3.8 [facility] Comment on above: Performed By: #### L IPA, CMP, CRP, NAT #### [facility] [address] [place] [address] Dr. Keturah Fisher Lymphocytes/100 WBC (Bld) 27.7 % Normal 20.5-60.0 [facility] Comment on above: Performed By: #### L IPA, CMP, CRP, NAT #### [facility] [address] [place] [address] Dr. Keturah Fisher MANUAL DIFF REQ NO Normal [facility] Comment on above: Performed By: #### L IPA, CMP, CRP, NAT #### [facility] [address] [place] [address] Dr. Keturah Fisher MCH (RBC) [Entitic mass] 32.6 pg Normal 26.7-34.0 [facility] Comment on above: Performed By: #### L IPA, CMP, CRP, NAT #### [facility] [address] [place] [address] Dr. Keturah Fisher MCHC (RBC) [Mass/Vol] 33.3 g/dL Normal 29.9-35.2 [facility] Comment on above: Performed By: #### L IPA, CMP, CRP, NAT #### [facility] [address] [place] [address] Dr. Keturah Fisher MCV (RBC) [Entitic vol] 97.9 fL Normal 81.0-99.0 [facility] Comment on above: Performed By: #### L IPA, CMP, CRP, NAT #### [facility] [address] [place] [address] Dr. Keturah Fisher MONO # 1.2 103/ul Critically high 0.3-0.8 [facility] Comment on above: Performed By: #### L IPA, CMP, CRP, NAT #### [facility] [address] [place] [address] Dr. Keturah Fisher Monocytes/100 WBC (Bld) 12.9 % Critically high 1.7-12.0 [facility] Comment on above: Performed By: #### L IPA, CMP, CRP, NAT #### [facility] [address] [place] [address] Dr. Keturah Fisher NEUT # 5.3 103/ul Normal 1.4-6.5 [facility] Comment on above: Performed By: #### L IPA, CMP, CRP, NAT #### [facility] [address] [place] [address] Dr. Keturah Fisher Neutrophils/100 WBC (Bld) 55.9 % Normal 43.0-75.0 [facility] Comment on above: Performed By: #### L IPA, CMP, CRP, NAT #### [facility] [address] [place] [address] Dr. Keturah Fisher Platelet mean volume (Bld) [Entitic vol] 9.8 fL Normal 9.5-13.5 [facility] Comment on above: Performed By: #### L IPA, CMP, CRP, NAT #### [facility] [address] [address] [address] Keturah Fisher PLT 229 103/ul Normal 150-450 [facility] Comment on above: Performed By: #### L IPA, CMP, CRP, NAT #### [facility] [address] [address] [address] Keturah Fisher RBC 4.33 106/ul Normal 4.20-5.40 [facility] Comment on above: Performed By: #### L IPA, CMP, CRP, NAT #### [facility] [address] [address] [address] Keturah Fisher WBC 9.5 103/ul Normal 4.0-11.0 [facility] Comment on above: Performed By: #### L IPA, CMP, CRP, NAT #### [facility] [address] [address] [address] Keturah Fisher LIPASEon 08-26-2021 Lipase [Catalytic activity/Vol] 146.0 U/L Normal 73.0-393.0 [facility] Comment on above: Performed By: #### A MY, CMP, LIPA ####[facility] [address] [place] [address]DrGopal Fisher PROF 14(COMP METB)on 022 Albumin [Mass/Vol] 3.5 g/dL Normal 3.4-5.0 [facility] Comment on above: Performed By: #### A MY, CMP, LIPA ####[facility] [address] [place] [address]DrGopal Fisher Albumin/Globulin [Mass ratio] 1.1 {ratio} Normal [facility] Comment on above: Performed By: #### A MY, CMP, LIPA ####[facility] [address] [place] [id number] Fisher ALP [Catalytic activity/Vol] 139 U/L Critically high 46-116 [facility] Comment on above: Performed By: #### A MY, CMP, LIPA ####[facility] [address] [place] [id number] Fisher ALT [Catalytic activity/Vol] 21 U/L Normal 14-59 [facility] Comment on above: Performed By: #### A MY, CMP, LIPA ####[facility] [address] [place] [address]Dr. Keturah Fisher Anion gap [Moles/Vol] 11.4 mmol/L Normal [facility] Comment on above: Performed By: #### A MY, CMP, LIPA ####[facility] [address] [place] [address]Dr. Keturah Fisher AST [Catalytic activity/Vol] 21 U/L Normal 15-37 [facility] Comment on above: Performed By: #### A MY, CMP, LIPA ####[facility] [address] [place], [place] [address]Dr. Keturah Fisher Bilirubin [Mass/Vol] 0.2 mg/dL Normal 0.2-1.0 [facility] Comment on above: Performed By: #### A MY, CMP, LIPA ####[facility] [address] [place], [place] [address]Dr. Keturah Fisher Calcium [Mass/Vol] 9.2 mg/dL Normal 8.5-10.1 [facility] Comment on above: Performed By: #### A MY, CMP, LIPA ####[facility] [address] [place], [place] [address]Dr. Keturah Fisher Chloride [Moles/Vol] 107 mmol/L Normal 98-107 [facility] Comment on above: Performed By: #### A MY, CMP, LIPA ####[facility] [address] [place], [place] [address]Dr. Keturah Fisher CO2 [Moles/Vol] 27.9 mmol/L Normal 21.0-32.0 [facility] Comment on above: Performed By: #### A MY, CMP, LIPA ####[facility] [address] [place], [place] [address]Dr. Keturah Fisher Creatinine [Mass/Vol] 0.84 mg/dL Normal 0.55-1.02 [facility] Comment on above: Performed By: #### A MY, CMP, LIPA ####[facility] [address] [place] [id number]. Elisalan Fisher EGFR-AF BENINESE >60 Normal >=60 [facility] Comment on above: Performed By: #### A MY, CMP, LIPA ####[facility] [address] [place] [id number]. Keturah Fisher EGFR-NON AF BENINESE >60 Normal >=60 [facility] Comment on above: Performed By: #### A MY, CMP, LIPA ####[facility] [address] [place] [address]Dr. Keturah Fisher Globulin (S) [Mass/Vol] 3.3 g/dL Normal [facility] Comment on above: Performed By: #### A MY, CMP, LIPA ####[facility] [address] [place] [address]Dr. Keturah Fisher Glucose [Mass/Vol] 106 mg/dL Normal 74-106 [facility] Comment on above: Performed By: #### A MY, CMP, LIPA ####[facility] [address] [place] [address]Dr. Keturah Fisher Potassium [Moles/Vol] 4.3 mmol/L Normal 3.5-5.1 [facility] Comment on above: Performed By: #### A MY, CMP, LIPA ####[facility] [address] [place] [address]Dr. Elisalan Fisher Protein [Mass/Vol] 6.8 g/dL Normal 6.4-8.2 [facility] Comment on above: Performed By: #### A MY, CMP, LIPA ####[facility] [address] [place] [address]Dr. Keturah Fisher Sodium [Moles/Vol] 142 mmol/L Normal 136-145 [facility] Comment on above: Performed By: #### A MY, CMP, LIPA ####[facility] [address] [place] [address]Dr. Keturah Fisher Urea nitrogen [Mass/Vol] 11.0 mg/dL Normal 7.0-18.0 [facility] Comment on above: Performed By: #### A MY, CMP, LIPA ####[facility] [address] [place], [place] [address]KoGopal Fisher Urea nitrogen/Creatinine [Mass ratio] 13.1 mg/mg Normal [facility] Comment on above: Performed By: #### A MY, CMP, LIPA ####[facility] [address] [place], [place] [address]Wi. Keturah Fisher XR ABD FLAT UP_PA Jorje [...] MILADIS BARRERA Date: 2021-08-26 04:59 Normal [facility] AMYLASEon 08-22-2021 Amylase [Catalytic activity/Vol] 155 U/L Critically high 25-115 [facility] Comment on above: Performed By: #### C MP, NAT, LIPA #### [facility] [address] [place], [place] [address] Dr. Keturah Fisher CBC AUTO DIFFon 08-22-2021 BASO # 0.1 103/ul Normal 0.0-0.1 [facility] Comment on above: Performed By: #### L IPA, CMP, CRP, NAT #### [facility] [id number] Keturah Fisher Basophils/100 WBC (Bld) 0.7 % Normal 0.2-2.0 [facility] Comment on above: Performed By: #### L IPA, CMP, CRP, NAT #### [facility] [address] [place] [address] Dr. Keturah Fisher EO # 0.1 103/ul Normal 0.0-0.7 [facility] Comment on above: Performed By: #### L IPA, CMP, CRP, NAT #### [facility] [address] [place] [address] Dr. Keturah Fisher Eosinophils/100 WBC (Bld) 0.7 % Critically low 0.9-7.0 [facility] Comment on above: Performed By: #### L IPA, CMP, CRP, NAT #### [facility] [address] [place] [address] Dr. Keturah Fisher Erythrocyte distribution width (RBC) [Ratio] 13.2 % Normal 11.0-15.0 [facility] Comment on above: Performed By: #### L IPA, CMP, CRP, NAT #### [facility] [address] [place] [address] Dr. Keturah Fisher Hematocrit (Bld) [Volume fraction] 41.1 % Normal 36.0-48.0 [facility] Comment on above: Performed By: #### L IPA, CMP, CRP, NAT #### [facility] [address] [place] [address] Dr. Keturah Fisher Hemoglobin (Bld) [Mass/Vol] 13.8 g/dL Normal 12.0-16.0 [facility] Comment on above: Performed By: #### L IPA, CMP, CRP, NAT #### [facility] [address] [place] [address] Dr. Keturah Fisher IG # 0.03 10e3/ul Normal 0.00-0.03 [facility] Comment on above: Performed By: #### L IPA, CMP, CRP, NAT #### [facility] [address] [place] [address] Dr. Keturah Fisher IG % 0.2 % Normal 0.0-0.5 [facility] Comment on above: Performed By: #### L IPA, CMP, CRP, NAT #### [facility] [address] [place] [address] Dr. Keturah Fisher LYMPH # 2.6 103/ul Normal 1.2-3.8 [facility] Comment on above: Performed By: #### L IPA, CMP, CRP, NAT #### [facility] [address] [place] [address] Dr. Keturah Fisher Lymphocytes/100 WBC (Bld) 21.4 % Normal 20.5-60.0 [facility] Comment on above: Performed By: #### L IPA, CMP, CRP, NAT #### [facility] [address] [place] [address] Dr. Keturah Fisher MANUAL DIFF REQ NO Normal [facility] Comment on above: Performed By: #### L IPA, CMP, CRP, NAT #### [facility] [address] [place] [address] Dr. Keturah Fisher MCH (RBC) [Entitic mass] 32.2 pg Normal 26.7-34.0 [facility] Comment on above: Performed By: #### L IPA, CMP, CRP, NAT #### [facility] [address] [place] [address] Dr. Keturah Fisher MCHC (RBC) [Mass/Vol] 33.6 g/dL Normal 29.9-35.2 [facility] Comment on above: Performed By: #### L IPA, CMP, CRP, NAT #### [facility] [address] [place] [address] Dr. Keturah Fisher MCV (RBC) [Entitic vol] 95.8 fL Normal 81.0-99.0 [facility] Comment on above: Performed By: #### L IPA, CMP, CRP, NAT #### [facility] [address] [place] [address] Dr. Keturah Fisher MONO # 0.9 103/ul Critically high 0.3-0.8 [facility] Comment on above: Performed By: #### L IPA, CMP, CRP, NAT #### [facility] [address] [place] [address] Dr. Keturah Fisher Monocytes/100 WBC (Bld) 7.6 % Normal 1.7-12.0 [facility] Comment on above: Performed By: #### L IPA, CMP, CRP, NAT #### [facility] [address] [place] [address] [address] Keturah Fisher NEUT # 8.5 103/ul Critically high 1.4-6.5 [facility] Comment on above: Performed By: #### L IPA, CMP, CRP, NAT #### [facility] [address] [place] [address] Dr. Keturah Fisher Neutrophils/100 WBC (Bld) 69.4 % Normal 43.0-75.0 [facility] Comment on above: Performed By: #### L IPA, CMP, CRP, NAT #### [facility] [address] [place] [address] Dr. Keturah Fisher Platelet mean volume (Bld) [Entitic vol] 9.5 fL Normal 9.5-13.5 [facility] Comment on above: Performed By: #### L IPA, CMP, CRP, NAT #### [facility] [address] [place] [address] Dr. Keturah Fisher PLT 261 103/ul Normal 150-450 [facility] Comment on above: Performed By: #### L IPA, CMP, CRP, NAT #### [facility] [address] [place] [address] Dr. Keturah Fisher RBC 4.29 106/ul Normal 4.20-5.40 [facility] Comment on above: Performed By: #### L IPA, CMP, CRP, NAT #### [facility] [address] [place] [address] Dr. Keturah Fisher WBC 12.2 103/ul Critically high 4.0-11.0 [facility] Comment on above: Performed By: #### L IPA, CMP, CRP, NAT #### [facility] [address] [place] [address] Dr. Keturah Fisher LIPASEon 08-22-2021 Lipase [Catalytic activity/Vol] 419.0 U/L Critically high 73.0-393.0 [facility] Comment on above: Performed By: #### C NAT MEDEL, LIPA #### [facility] [address] [place] [address] [address] Keturah Fisher PROF 14(COMP METB)on 022 Albumin [Mass/Vol] 3.9 g/dL Normal 3.4-5.0 [facility] Comment on above: Performed By: #### C LIZY NAT, LIPA #### [facility] [address] [place] [address] [address] Keturah Fisher Albumin/Globulin [Mass ratio] 1.2 {ratio} Normal [facility] Comment on above: Performed By: #### C NAT MEDEL LIPA #### [facility] [address] [place] [address] Dr. Keturah Fisher ALP [Catalytic activity/Vol] 137 U/L Critically high 46-116 [facility] Comment on above: Performed By: #### C NAT MEDEL LIPA #### [facility] [address] [place] [address] Dr. Keturah Fisher ALT [Catalytic activity/Vol] 22 U/L Normal 14-59 [facility] Comment on above: Performed By: #### C NAT MEDEL LIPA #### [facility] [address] [place] [address] Dr. Keturah Fisher Anion gap [Moles/Vol] 12.9 mmol/L Normal [facility] Comment on above: Performed By: #### C NAT MEDEL, LIPA #### [facility] [address] [place] [address] Dr. Keturah Fisher AST [Catalytic activity/Vol] 20 U/L Normal 15-37 [facility] Comment on above: Performed By: #### C NAT MEDEL LIPA #### [facility] [address] [place] [address] Dr. Keturah Fisher Bilirubin [Mass/Vol] 0.2 mg/dL Normal 0.2-1.0 [facility] Comment on above: Performed By: #### C NAT MEDEL, LIPA #### [facility] [address] [place] [address] [address] Keturah Fisher Calcium [Mass/Vol] 9.5 mg/dL Normal 8.5-10.1 [facility] Comment on above: Performed By: #### C NAT MEDEL, LIPA #### [facility] [address] [place] [address] Dr. Keturah Fisher Chloride [Moles/Vol] 104 mmol/L Normal 98-107 [facility] Comment on above: Performed By: #### C LIZY NAT, LIPA #### [facility] [address] [place] [address] Dr. Keturah Fisher CO2 [Moles/Vol] 23.7 mmol/L Normal 21.0-32.0 [facility] Comment on above: Performed By: #### C LIZY NAT, LIPA #### [facility] [address] [place] [address] Dr. Keturah Fisher Creatinine [Mass/Vol] 0.85 mg/dL Normal 0.55-1.02 [facility] Comment on above: Performed By: #### C LIZY NTA, LIPA #### [facility] [address] [place] [address] Dr. Keturah Fisher EGFR-AF BENINESE >60 Normal >=60 [facility] Comment on above: Performed By: #### C NAT MEDEL, LIPA #### [facility] [address] [place] [address] Dr. Keturah Fisher EGFR-NON AF BENINESE >60 Normal >=60 [facility] Comment on above: Performed By: #### C LIZY NAT, LIPA #### [facility] [address] [place] [address] Dr. Keturah Fisher Globulin (S) [Mass/Vol] 3.3 g/dL Normal [facility] Comment on above: Performed By: #### C LIZY NAT, LIPA #### [facility] [address] [place] [address] Dr. Keturah Fisher Glucose [Mass/Vol] 130 mg/dL Critically high 74-106 [facility] Comment on above: Performed By: #### C NAT MEDEL, LIPA #### [facility] [address] [place] [address] [address] Keturah Fisher Potassium [Moles/Vol] 3.6 mmol/L Normal 3.5-5.1 [facility] Comment on above: Performed By: #### C MP, NAT, LIPA #### [facility] [address] [place] [address] [address] Keturah Fisher Protein [Mass/Vol] 7.2 g/dL Normal 6.4-8.2 [facility] Comment on above: Performed By: #### C MP, NAT, LIPA #### [facility] [address] [place] [address] [address] Keturah Fisher Sodium [Moles/Vol] 137 mmol/L Normal 136-145 [facility] Comment on above: Performed By: #### C LIZY NAT, LIPA #### [facility] [address] [place] [address] Dr. Keturah Fisher Urea nitrogen [Mass/Vol] 9.0 mg/dL Normal 7.0-18.0 [facility] Comment on above: Performed By: #### C LIZY NAT, LIPA #### [facility] [address] [place] [address] Dr. Keturah Fisher Urea nitrogen/Creatinine [Mass ratio] 10.6 mg/mg Normal [facility] Comment on above: Performed By: #### C LIZY, NAT, LIPA #### [facility] [address] [place] [address] Dr. Keturah Fisher XR ABD FLAT UP_PA [...] TRI HANSON Date: 2021-08-22 14:54 Normal [facility] CBC AUTO DIFFon 08-13-2021 BASO # 0.1 103/ul Normal 0.0-0.1 [facility] Comment on above: Performed By: #### C BC ####[facility] [address] [place] [id number]. Keturah Fisher Basophils/100 WBC (Bld) 0.6 % Normal 0.2-2.0 [facility] Comment on above: Performed By: #### C BC ####[facility] [address] [place] [address]Dr. Keturah Fisher EO # 0.1 103/ul Normal 0.0-0.7 [facility] Comment on above: Performed By: #### C BC ####[facility] [address] [place] [address]Dr. Keturah Fisher Eosinophils/100 WBC (Bld) 1.1 % Normal 0.9-7.0 [facility] Comment on above: Performed By: #### C BC ####[facility] [address] [place], [place] [id number]. Keturah Fisher Erythrocyte distribution width (RBC) [Ratio] 12.6 % Normal 11.0-15.0 [facility] Comment on above: Performed By: #### C BC ####[facility] [address] [place], [place] [id number]. Keturah Fisher Hematocrit (Bld) [Volume fraction] 42.3 % Normal 36.0-48.0 [facility] Comment on above: Performed By: #### C BC ####[facility] [address] [place] [id number]. Keturah Fisher Hemoglobin (Bld) [Mass/Vol] 14.1 g/dL Normal 12.0-16.0 [facility] Comment on above: Performed By: #### C BC ####[facility] [address] [place] [id number]. Keturah Fisher IG # 0.03 10e3/ul Normal 0.00-0.03 [facility] Comment on above: Performed By: #### C BC ####[facility] [address] [place] [address]Dr. Keturah Fisher IG % 0.3 % Normal 0.0-0.5 [facility] Comment on above: Performed By: #### C BC ####[facility] [address] [place] [address]Dr. Keturah Fisher LYMPH # 2.4 103/ul Normal 1.2-3.8 [facility] Comment on above: Performed By: #### C BC ####[facility] [address] [place] [address]Dr. Keturah Fisher Lymphocytes/100 WBC (Bld) 22.3 % Normal 20.5-60.0 [facility] Comment on above: Performed By: #### C BC ####[facility] [address] [place], [place] [address]Dr. Keturah Fisher MANUAL DIFF REQ NO Normal [facility] Comment on above: Performed By: #### C BC ####[facility] [address] [place] [address]Dr. Keturah Fisher MCH (RBC) [Entitic mass] 32.5 pg Normal 26.7-34.0 [facility] Comment on above: Performed By: #### C BC ####[facility] [address] [place] [address]Dr. Keturah Fisher MCHC (RBC) [Mass/Vol] 33.3 g/dL Normal 29.9-35.2 [facility] Comment on above: Performed By: #### C BC ####[facility] [address] [place] [address]Dr. Keturah Fisher MCV (RBC) [Entitic vol] 97.5 fL Normal 81.0-99.0 [facility] Comment on above: Performed By: #### C BC ####[facility] [address] [place] [address]Dr. Keturah Fisher MONO # 1.0 103/ul Critically high 0.3-0.8 [facility] Comment on above: Performed By: #### C BC ####[facility] [address] [place] [id number]. Keturah Fisher Monocytes/100 WBC (Bld) 8.7 % Normal 1.7-12.0 [facility] Comment on above: Performed By: #### C BC ####[facility] [address] [place] [id number]. Keturah Fisher NEUT # 7.3 103/ul Critically high 1.4-6.5 [facility] Comment on above: Performed By: #### C BC ####[facility] [address] [place] [id number]. Keturah Fisher Neutrophils/100 WBC (Bld) 67.0 % Normal 43.0-75.0 [facility] Comment on above: Performed By: #### C BC ####[facility] [address] [place] [id number]. Keturah Fisher Platelet mean volume (Bld) [Entitic vol] 9.5 fL Normal 9.5-13.5 [facility] Comment on above: Performed By: #### C BC ####[facility] [address] [place] [id number]. Keturah Fisher PLT 272 103/ul Normal 150-450 [facility] Comment on above: Performed By: #### C BC ####[facility] [address] [place] [id number]. Keturah Fisher RBC 4.34 106/ul Normal 4.20-5.40 [facility] Comment on above: Performed By: #### C BC ####[facility] [address] [place] [id number]. Keturah Fisher WBC 10.9 103/ul Normal 4.0-11.0 [facility] Comment on above: Performed By: #### C BC ####[facility] [address] [place] [id number]. Keturah Fisher CT ABD/PELV W CONon 08-14-19 [...] by: HEBERT MCPHERSON Date: 2021-08-13 17:14 Normal [facility] ER URINE PROFILEon 2 Bilirubin Ql (U) Negative Normal NEGATIVE [facility] Comment on above: Performed By: #### C BC #### [facility] [address] [place] [address] Dr. Keturah Fisher Clarity (U) CLEAR Normal CLEAR [facility] Comment on above: Performed By: #### C BC #### [facility] [address] [place] [address] Dr. Keturah Fisher Color (U) LT. YELLOW Normal YELLOW [facility] Comment on above: Performed By: #### C BC #### [facility] [address] [place] [address] Dr. Keturah BAH A micrscopic examina tion will be performed if indicated. Normal [facility] Comment on above: Performed By: #### C BC #### [facility] [address] [place] [address] Dr. Keturah Fisher Glucose Ql (U) Negative Normal NEGATIVE [facility] Comment on above: Performed By: #### C BC #### [facility] [address] [place] [address] Dr. Keturah Fisher Hemoglobin Ql (U) Negative Normal NEGATIVE [facility] Comment on above: Performed By: #### C BC #### [facility] [address] [place] [address] Dr. Keturah Fisher Ketones Ql (U) Negative Normal NEGATIVE [facility] Comment on above: Performed By: #### C BC #### [facility] [address] [place] [address] Dr. Keturah Fisher LEUKOCYTES Negative Normal NEGATIVE [facility] Comment on above: Performed By: #### C BC #### [facility] [address] [place] [address] Dr. Keturah Fisher Nitrite Ql (U) Negative Normal NEGATIVE [facility] Comment on above: Performed By: #### C BC #### [facility] [address] [place] [address] Dr. Keturah Fisher pH (U) 5.5 [pH] Normal 5-9 [facility] Comment on above: Performed By: #### C BC #### [facility] [address] [place] [address] Dr. Keturah Fisher SPEC GRAVITY 1.010 Normal 1.005-<=1. 025 [facility] Comment on above: Performed By: #### C BC #### [facility] [address] [place] [address] Dr. Keturah Fisher UA PROTEIN Negative Normal NEGATIVE/ TRACE [facility] Comment on above: Performed By: #### C BC #### [facility] [address] [place] [address] Dr. Keturah Fisher UR MICRO IND NOT INDICATED Normal [facility] Comment on above: Performed By: #### C BC #### [facility] [address] [place] [address] Dr. Keturah Fisher Urobilinogen Qn (U) 0.2 {Marizol'U}/dL Normal 0.2 - 1. 0 [facility] Comment on above: Performed By: #### C BC #### [facility] [address] [place] [address] Dr. Keturah Fisher LIPASEon 08-13-2021 Lipase [Catalytic activity/Vol] 217.0 U/L Normal 73.0-393.0 [facility] Comment on above: Performed By: #### C BC #### [facility] [address] [place] [address] Dr. Keturah Fisher PROF 14(COMP METB)on 022 Albumin [Mass/Vol] 3.9 g/dL Normal 3.4-5.0 [facility] Comment on above: Performed By: #### C BC #### [facility] [address] [place] [address] Dr. Keturah Fisher Albumin/Globulin [Mass ratio] 1.1 {ratio} Normal [facility] Comment on above: Performed By: #### C BC #### [facility] [address] [place] [address] Dr. Keturah Fisher ALP [Catalytic activity/Vol] 140 U/L Critically high 46-116 [facility] Comment on above: Performed By: #### C BC #### [facility] [address] [address] [address] Keturah Fisher ALT [Catalytic activity/Vol] 24 U/L Normal 14-59 [facility] Comment on above: Performed By: #### C BC #### [facility] [address] [place] [address] [address] Keturah Fisher Anion gap [Moles/Vol] 11.7 mmol/L Normal [facility] Comment on above: Performed By: #### C BC #### [facility] [address] [address] [address] Keturah Fisher AST [Catalytic activity/Vol] 19 U/L Normal 15-37 [facility] Comment on above: Performed By: #### C BC #### [facility] [address] [place] [address] Dr. Keturah Fisher Bilirubin [Mass/Vol] 0.2 mg/dL Normal 0.2-1.0 [facility] Comment on above: Performed By: #### C BC #### [facility] [address] [place] [address] Dr. Keturah Fisher Calcium [Mass/Vol] 9.9 mg/dL Normal 8.5-10.1 [facility] Comment on above: Performed By: #### C BC #### [facility] [address] [place] [address] Dr. Keturah Fisher Chloride [Moles/Vol] 105 mmol/L Normal 98-107 [facility] Comment on above: Performed By: #### C BC #### [facility] [address] [address] [address] Keturah Fisher CO2 [Moles/Vol] 29.1 mmol/L Normal 21.0-32.0 [facility] Comment on above: Performed By: #### C BC #### [facility] [address] [address] [address] Keturah Fisher Creatinine [Mass/Vol] 0.81 mg/dL Normal 0.55-1.02 [facility] Comment on above: Performed By: #### C BC #### [facility] [address] [address] [address] Keturah Fisher EGFR-AF BENINESE >60 Normal >=60 [facility] Comment on above: Performed By: #### C BC #### [facility] [address] [address] [address] Keturah Fisher EGFR-NON AF BENINESE >60 Normal >=60 [facility] Comment on above: Performed By: #### C BC #### [facility] [address] [address] [address] Keturah Fisher Globulin (S) [Mass/Vol] 3.4 g/dL Normal [facility] Comment on above: Performed By: #### C BC #### [facility] [address] [address] [address] Keturah Fisher Glucose [Mass/Vol] 87 mg/dL Normal 74-106 [facility] Comment on above: Performed By: #### C BC #### [facility] [address] [address] [address] Keturah Fisher Potassium [Moles/Vol] 3.8 mmol/L Normal 3.5-5.1 [facility] Comment on above: Performed By: #### C BC #### [facility] [address] [place] [address] Dr. Keturah Fisher Protein [Mass/Vol] 7.3 g/dL Normal 6.4-8.2 [facility] Comment on above: Performed By: #### C BC #### [facility] [address] [address] [address] Keturah Fisher Sodium [Moles/Vol] 142 mmol/L Normal 136-145 [facility] Comment on above: Performed By: #### C BC #### [facility] [address] [address] [address] Keturah Fisher Urea nitrogen [Mass/Vol] 11.0 mg/dL Normal 7.0-18.0 [facility] Comment on above: Performed By: #### C BC #### [facility] [address] [address] [address] Keturah Fisher Urea nitrogen/Creatinine [Mass ratio] 13.6 mg/mg Normal [facility] Comment on above: Performed By: #### C #### [facility] [address] [address] [address] Ketruah Fisher Albumin [Mass/volume] in Ser um or PlasmaOrdered By: Keaton Barnard on 08-11-2021 Albumin [Mass/Vol] 3.4 g/dL 3.2-5.5 [facility] Basophils Auto (Bld) [#/Vol] Ordered By: Keaton Barnard on 08-11-2021 Basophils (Bld) [#/Vol] 0.1 10*3/uL 0.0-0.2 [facility] Basophils/100 WBC Auto (Bld) Ordered By: Keaton Barnard on 08-11-2021 Basophils/100 WBC (Bld) 0.9 % . [facility] Bilirubin Test strip Ql (U)O rdered By: Keaton Barnard on 08-11-2021 Bilirubin Ql (U) Negative Negative [facility] Blood hemoglobin measurement (mass/volume)Ordered By: Keaton Barnard on 08-11-2021 Hemoglobin (Bld) [Mass/Vol] 14.1 g/dL 11.8-15.4 [facility] Blood leukocytes automated c ount (number/volume)Ordered By: Keaton Barnard on 08-11-2021 WBC (Bld) [#/Vol] 9.7 10*3/uL 4.5-11.0 [facility] Color Auto (U)Ordered By: Luis Barnard on 08-11-2021 Color (U) Yellow Yellow [facility] Creatinine and Glomerular fi ltration rate.predicted panel (S/P/Bld)Ordered By: Keaton Barnard on 08-11-2021 Creatinine [Mass/Vol] 0.95 mg/dL 0.44-1.03 [facility] Direct bilirubin measurement Ordered By: Keaton Barnard on 08-11-2021 Bilirubin.direct [Mass/Vol] mg/dL 0.0-0.4 [facility] Eosinophils Auto (Bld) [#/Vo l]Ordered By: Keaton Barnard on 08-11-2021 Eosinophils (Bld) [#/Vol] 0.1 10*3/uL 0.0-0.45 [facility] Eosinophils/100 WBC Auto (Bl d)Ordered By: Keaton Barnard on 08-11-2021 Eosinophils/100 WBC (Bld) 1.3 % . [facility] Erythrocyte distribution wid th Auto (RBC) [Ratio]Ordered By: Keaton Barnard on 08-11-2021 Erythrocyte distribution width (RBC) [Ratio] 13.2 % 11.9-15.3 [facility] Estimated glomerular filtrat ion rate (GFR) non- AmericanOrdered By: Keaton Barnard on 08-11-2021 GFR/1.73 sq M.predicted among non-blacks MDRD (S/P/Bld) [Vol rate/Area] > 60 mL/Min [facility] Globulin Calc (S) [Mass/Vol] Ordered By: Keaton Barnard on 08-11-2021 Globulin (S) [Mass/Vol] 2.6 g/dL [facility] Hematocrit Auto (Bld) [Volum e fraction]Ordered By: Keaton Barnard on 08-11-2021 Hematocrit (Bld) [Volume fraction] 42.1 % 34.0-46.4 [facility] Ketones Auto test strip (U) [Mass/Vol]Ordered By: Keaton Barnard on 08-11-2021 Ketones (U) [Mass/Vol] Negative Negative Fi [facility] Laboratory - Chemistry and C hemistry - challengeOrdered By: Keaton Barnard on 08-11-2021 Lipase [Catalytic activity/Vol] 89.0 U/L 22-51 [facility] Laboratory - CoagulationOrde red By: Keaton Barnard on 08-11-2021 PT Coag (PPP) [Time] 12.5 s 9.0-12.9 [facility] Laboratory - Hematology and Cell countsOrdered By: Keaton Barnard on 08-11-2021 Nucleated RBC/100 WBC (Bld) [Ratio] 0.1 % 0-0.5 [facility] Lymphocytes Auto (Bld) [#/Vo l]Ordered By: Keaton Barnard on 08-11-2021 Lymphocytes (Bld) [#/Vol] 2.5 10*3/uL 1.00-4.8 [facility] Lymphocytes/100 WBC Auto (Bl d)Ordered By: Keaton Barnard on 08-11-2021 Lymphocytes/100 WBC (Bld) 25.8 % . [facility] MCH Auto (RBC) [Entitic mass ]Ordered By: Keaton Barnard on 08-11-2021 MCH (RBC) [Entitic mass] 32.4 pg 24.7-34.3 [facility] MCHC Auto (RBC) [Mass/Vol]Or dered By: Keaton Barnard on 08-11-2021 MCHC (RBC) [Mass/Vol] 33.4 g/dL 32.0-35.0 [facility] MCV Auto (RBC) [Entitic vol] Ordered By: Keaton Barnard on 08-11-2021 MCV (RBC) [Entitic vol] 96.8 fL 80-100 [facility] Monocytes Auto (Bld) [#/Vol] Ordered By: Keaton Barnard on 08-11-2021 Monocytes (Bld) [#/Vol] 0.8 10*3/uL 0.0-0.8 [facility] Monocytes/100 WBC Auto (Bld) Ordered By: Keaton Barnard on 08-11-2021 Monocytes/100 WBC (Bld) 8.7 % . [facility] Neutrophils Auto (Bld) [#/Vo l]Ordered By: Keaton Barnard on 08-11-2021 Neutrophils (Bld) [#/Vol] 6.1 10*3/uL 1.8-7.7 [facility] Neutrophils/100 WBC Auto (Bl d)Ordered By: Keatno Barnard on 08-11-2021 Neutrophils/100 WBC (Bld) 63.3 % . [facility] Nitrite Test strip Ql (U)Ord ered By: Keaton Barnard on 08-11-2021 Nitrite Ql (U) Negative Negative [facility] No Panel InformationOrdered By: Keaton Barnard on 08-11-2021 Estimated GFR () > 60 mL/Min [facility] Comment on above: GFR estimated refere nce range: According to KDOQI guidelines, <60 ml/min/1.73m2 is sufficient to diagnose a patient with chronic kidney disease. Pharmacy Creatinine Clearance (Chem 62.33 [facility] Platelet mean volume Auto (B ld) [Entitic vol]Ordered By: Keaton Barnard on 08-11-2021 Platelet mean volume (Bld) [Entitic vol] 8.0 fL 6.3-10.7 [facility] Platelet poor plasma interna tional normalized ratio (INR) by coagulation assay (relatOrdered By: Keaton Barnard on 08-11-2021 INR Coag (PPP) [Relative time] 1.1 {INR} [facility] Comment on above: INR Therapeutic [...] Platelets (Bld) [#/Vol] 252 10*3/uL 150-450 [facility] Protein Auto test strip (U) [Mass/Vol]Ordered By: Keaton Barnard on 08-11-2021 Protein (U) [Mass/Vol] Negative Negative Fi [facility] Protein [Mass/volume] in Ser um or PlasmaOrdered By: Keaton Barnard on 08-11-2021 Protein [Mass/Vol] 6.0 g/dL 6.1-7.9 [facility] RBC Auto (Bld) [#/Vol]Ordere d By: Keaton Barnard on 08-11-2021 RBC (Bld) [#/Vol] 4.35 10*6/uL 3.60-5.00 [facility] Serum or plasma alanine hughes otransferase measurement without P-5'-P (enzymatic activiOrdered By: Keaton Barnard on 08-11-2021 ALT No additional P-5'-P [Catalytic activity/Vol] 12 U/L 10-60 [facility] Serum or plasma albumin/glob ulin mass ratioOrdered By: Keaton Barnard on 08-11-2021 Albumin/Globulin [Mass ratio] 1.3 {ratio} [facility] Serum or plasma alkaline jaqueline sphatase measurement (enzymatic activity/volume)Ordered By: Keaton Barnard on 08-11-2021 ALP [Catalytic activity/Vol] 98 U/L 32-92 [facility] Serum or plasma aspartate am inotransferase measurement (enzymatic activity/volume)Ordered By: Keaton Barnard on 08-11-2021 AST [Catalytic activity/Vol] 17 U/L 10-42 [facility] Serum or plasma calcium priscilla urement (mass/volume)Ordered By: Keaton Barnard on 08-11-2021 Calcium [Mass/Vol] 9.3 mg/dL 8.2-10.2 [facility] Serum or plasma chloride daron surement (moles/volume)Ordered By: Keaton Barnard on 08-11-2021 Chloride [Moles/Vol] 104 mmol/L 95-114 [facility] Serum or plasma glucose priscilla urement (mass/volume)Ordered By: Keaton Barnard on 08-11-2021 Glucose [Mass/Vol] 95 mg/dL 70-100 [facility] Comment on above: ADA recommended refe rence range Random Glucose Reference Range is dependent on time and content of last meal. Glucose of more than 200 mg/dL in a nonstressed, ambulatory subject supports the diagnosis of Diabetes Mellitus. Serum or plasma non-glucuron idated bilirubin measurement (mass/volume)Ordered By: Keaton Barnard on 08-11-2021 Bilirubin.indirect [Mass/Vol] TNP [facility] Comment on above: Test not performed Serum or plasma potassium me asurement (moles/volume)Ordered By: Keaton Barnard on 08-11-2021 Potassium [Moles/Vol] 3.8 mmol/L 3.5-5.1 [facility] Serum or plasma sodium measu rement (moles/volume)Ordered By: Keaton Barnard on 08-11-2021 Sodium [Moles/Vol] 138 mmol/L 136-146 [facility] Serum or plasma total biliru bin measurement (mass/volume)Ordered By: Keaton Barnard on 08-11-2021 Bilirubin [Mass/Vol] 0.3 mg/dL 0.3-1.2 [facility] Serum or plasma total carbon dioxide measurement (moles/volume)Ordered By: Keaton Barnard on 08-11-2021 CO2 [Moles/Vol] 24.8 mmol/L 22.0-30.0 [facility] Serum or plasma urea nitroge n measurement (mass/volume)Ordered By: Keaton Barnard on 08-11-2021 Urea nitrogen [Mass/Vol] 10 mg/dL 9-23 [facility] Specific gravity Auto test s trip (U) [Rel density]Ordered By: Keaton Barnard on 08-11-2021 Specific gravity (U) [Rel density] 1.028 1.001-1.[address] [facility] Troponin I.cardiac [Mass/vol ume] in Serum or Plasma by High sensitivity methodOrdered By: Keaton Barnard on 08-11-2021 Troponin I.cardiac High sensitivity method [Mass/Vol] 3 pg/mL 0-15 [facility] Urine clarity by refractomet ry automatedOrdered By: Keaton Barnard on 08-11-2021 Clarity Refractometry automated (U) Clear Clear [facility] Urine glucose measurement by automated test strip (mass/volume)Ordered By: Keaton Barnard on 08-11-2021 Glucose Auto test strip (U) [Mass/Vol] Normal mg/dL Normal [facility] Urine hemoglobin detection b y automated test stripOrdered By: Keaton Barnard on 08-11-2021 Hemoglobin Auto test strip Ql (U) Negative Negative [facility] Urine leukocyte esterase det ection by automated test stripOrdered By: Keaton Barnard on 08-11-2021 Leukocyte esterase Auto test strip Ql (U) Negative Negative [facility] Urobilinogen Auto test strip (U) [Mass/Vol]Ordered By: Keaton Barnard on 08-11-2021 Urobilinogen (U) [Mass/Vol] Normal mg/dL Normal [facility] pH Auto test strip (U)Ordere d By: Keaton Barnard on 08-11-2021 pH (U) 5.0 [pH] 5.0-9.0 [facility] AMYLASEon 07-31-2021 Amylase [Catalytic activity/Vol] 158 U/L Critically high 25-115 [facility] Comment on above: Performed By: #### L IPA, CMP, CRP, NAT #### [facility] [address] [place], [place] [address] Dr. Keturah Fisher CBC AUTO DIFFon 07-31-2021 BASO # 0.1 103/ul Normal 0.0-0.1 [facility] Comment on above: Performed By: #### C BC ####[facility] [address] [place] [id number]. Keturah Fisher Basophils/100 WBC (Bld) 0.7 % Normal 0.2-2.0 [facility] Comment on above: Performed By: #### C BC ####[facility] [address] [place] [id number] Fisher EO # 0.1 103/ul Normal 0.0-0.7 [facility] Comment on above: Performed By: #### C BC ####[facility] [address] [place] [address]DrGopal Fisher Eosinophils/100 WBC (Bld) 0.9 % Normal 0.9-7.0 [facility] Comment on above: Performed By: #### C BC ####[facility] [address] [place] [address]DrGopal Fisher Erythrocyte distribution width (RBC) [Ratio] 12.7 % Normal 11.0-15.0 [facility] Comment on above: Performed By: #### C BC ####[facility] [address] [place] [phone]. Keturah Fisher Hematocrit (Bld) [Volume fraction] 43.2 % Normal 36.0-48.0 [facility] Comment on above: Performed By: #### C BC ####[facility] [address]au[address] [place] [phone]. Keturah Fisher Hemoglobin (Bld) [Mass/Vol] 14.5 g/dL Normal 12.0-16.0 [facility] Comment on above: Performed By: #### C BC ####[facility] [address] [place], [place] [address]DrGopal Fisher IG # 0.04 10e3/ul Critically high 0.00-0.03 [facility] Comment on above: Performed By: #### C BC ####[facility] [address]wi[address]uv[address] [place] [phone]. Keturah Fisher IG % 0.4 % Normal 0.0-0.5 [facility] Comment on above: Performed By: #### C BC ####[facility] [address] [place] [phone]. Keturah Fisher LYMPH # 2.8 103/ul Normal 1.2-3.8 [facility] Comment on above: Performed By: #### C BC ####[facility] [address]ufso[address] [place] [phone]. Keturah Fisher Lymphocytes/100 WBC (Bld) 24.9 % Normal 20.5-60.0 [facility] Comment on above: Performed By: #### C BC ####[facility] [address] [place] [address]Dr. Keturah Fisher MANUAL DIFF REQ NO Normal [facility] Comment on above: Performed By: #### C BC ####[facility] [address]spf[address] [place] [phone]. Keturah Fisher MCH (RBC) [Entitic mass] 32.7 pg Normal 26.7-34.0 [facility] Comment on above: Performed By: #### C BC ####[facility] [address] [place] [phone]. Keturah Fisher MCHC (RBC) [Mass/Vol] 33.6 g/dL Normal 29.9-35.2 [facility] Comment on above: Performed By: #### C BC ####[facility] Ehsq[address]ouuqx[address] [place] [phone]. Keturah Fisher MCV (RBC) [Entitic vol] 97.5 fL Normal 81.0-99.0 [facility] Comment on above: Performed By: #### C BC ####[facility] [address]ifk[address] [place] [phone]. Keturah Phillip MONO # 0.9 103/ul Critically high 0.3-0.8 [facility] Comment on above: Performed By: #### C BC ####[facility] [address]xijd[address] [place] [phone]. Keturah Fisher Monocytes/100 WBC (Bld) 8.1 % Normal 1.7-12.0 [facility] Comment on above: Performed By: #### C BC ####[facility] [address] [place] [phone]. Keturah Fisher NEUT # 7.3 103/ul Critically high 1.4-6.5 [facility] Comment on above: Performed By: #### C BC ####[facility] [address] [place] [phone]. Keturah Fisher Neutrophils/100 WBC (Bld) 65.0 % Normal 43.0-75.0 [facility] Comment on above: Performed By: #### C BC ####[facility] [address] [place] [address]Dr. Keturah Fisher Platelet mean volume (Bld) [Entitic vol] 10.0 fL Normal 9.5-13.5 [facility] Comment on above: Performed By: #### C BC ####[facility] [address] [place] [address]Dr. Keturah Fisher PLT 245 103/ul Normal 150-450 [facility] Comment on above: Performed By: #### C BC ####[facility] [address] [place] [phone]. Keturah Fisher RBC 4.43 106/ul Normal 4.20-5.40 [facility] Comment on above: Performed By: #### C BC ####[facility] [address] [place], [place] [id number]. Keturah Fisher WBC 11.2 103/ul Critically high 4.0-11.0 [facility] Comment on above: Performed By: #### C BC ####[facility] [address] [place] [address]Dr. Keturah Fisher LIPASEon 07-31-2021 Lipase [Catalytic activity/Vol] 439.0 U/L Critically high 73.0-393.0 [facility] Comment on above: Performed By: #### L IPA, CMP, CRP, NAT #### [facility] [address] [place] [address] Dr. Keturah Fisher PROF 14(COMP METB)on 022 Albumin [Mass/Vol] 3.6 g/dL Normal 3.4-5.0 [facility] Comment on above: Performed By: #### L IPA, CMP, CRP, NAT #### [facility] [address] [place] [address] Dr. Keturah Fisher Albumin/Globulin [Mass ratio] 1.1 {ratio} Normal [facility] Comment on above: Performed By: #### L IPA, CMP, CRP, NAT #### [facility] [address] [place] [address] Dr. Keturah Fisher ALP [Catalytic activity/Vol] 119 U/L Critically high 46-116 [facility] Comment on above: Performed By: #### L IPA, CMP, CRP, NAT #### [facility] [address] [place] [address] Dr. Keturah Fisher ALT [Catalytic activity/Vol] 20 U/L Normal 14-59 [facility] Comment on above: Performed By: #### L IPA, CMP, CRP, NAT #### [facility] [address] [place] [address] Dr. Keturah Fisher Anion gap [Moles/Vol] 13.4 mmol/L Normal [facility] Comment on above: Performed By: #### L IPA, CMP, CRP, NAT #### [facility] [address] [place] [address] Dr. Keturah Fisher AST [Catalytic activity/Vol] 16 U/L Normal 15-37 [facility] Comment on above: Performed By: #### L IPA, CMP, CRP, NAT #### [facility] [address] [place] [address] Dr. Keturah Fisher Bilirubin [Mass/Vol] 0.1 mg/dL Critically low 0.2-1.0 [facility] Comment on above: Performed By: #### L IPA, CMP, CRP, NAT #### [facility] [address] [place] [address] [address] Keturah Fisher Calcium [Mass/Vol] 8.9 mg/dL Normal 8.5-10.1 [facility] Comment on above: Performed By: #### L IPA, CMP, CRP, NAT #### [facility] [address] [place] [address] Dr. Keturah Fisher Chloride [Moles/Vol] 106 mmol/L Normal 98-107 [facility] Comment on above: Performed By: #### L IPA, CMP, CRP, NAT #### [facility] [address] [place] [address] Dr. Keturah Fisher CO2 [Moles/Vol] 25.4 mmol/L Normal 21.0-32.0 [facility] Comment on above: Performed By: #### L IPA, CMP, CRP, NAT #### [facility] [address] [place] [address] Dr. Keturah Fisher Creatinine [Mass/Vol] 0.73 mg/dL Normal 0.55-1.02 [facility] Comment on above: Performed By: #### L IPA, CMP, CRP, NAT #### [facility] [address] [place] [address] Dr. Keturah Fisher EGFR-AF BENINESE >60 Normal >=60 [facility] Comment on above: Performed By: #### L IPA, CMP, CRP, NAT #### [facility] [address] [place] [address] Dr. Keturah Fisher EGFR-NON AF BENINESE >60 Normal >=60 [facility] Comment on above: Performed By: #### L IPA, CMP, CRP, NAT #### [facility] [address] [place] [address] Dr. Keturah Fisher Globulin (S) [Mass/Vol] 3.2 g/dL Normal [facility] Comment on above: Performed By: #### L IPA, CMP, CRP, NAT #### [facility] [address] [place] [address] Dr. Keturah Fisher Glucose [Mass/Vol] 105 mg/dL Normal 74-106 [facility] Comment on above: Performed By: #### L IPA, CMP, CRP, NAT #### [facility] [address] [place] [address] Dr. Keturah Fisher Potassium [Moles/Vol] 3.8 mmol/L Normal 3.5-5.1 [facility] Comment on above: Performed By: #### L IPA, CMP, CRP, NAT #### [facility] [address] [place] [address] Dr. Keturah Fisher Protein [Mass/Vol] 6.8 g/dL Normal 6.4-8.2 [facility] Comment on above: Performed By: #### L IPA, CMP, CRP, NAT #### [facility] [address] [place] [address] Dr. Keturah Fisher Sodium [Moles/Vol] 141 mmol/L Normal 136-145 [facility] Comment on above: Performed By: #### L IPA, CMP, CRP, NAT #### [facility] [address] [place] [address] Dr. Keturah Fisher Urea nitrogen [Mass/Vol] 12.0 mg/dL Normal 7.0-18.0 [facility] Comment on above: Performed By: #### L IPA, CMP, CRP, NAT #### [facility] [address] [place] [address] Dr. Keturah Fisher Urea nitrogen/Creatinine [Mass ratio] 16.4 mg/mg Normal [facility] Comment on above: Performed By: #### L IPA, CMP, CRP, NAT #### [facility] [address] [place] [address] Dr. Keturah Fisher TROPONIN, HIGH SENSITIVITYon 07-31-2021 HSTROP 4.2 pg/mL Normal 4.0-51.3 [facility] Comment on above: Result Comment: CUT- OFF POINTS HAVE BEEN ESTABLISHED BASED ON THE FOURTH UNIVERSAL DEFINITIONS OF MYOCARDIAL INFARCTION. THE UPPER REFERENCE LIMIT (URL) OF TROPONIN, DEFINED THE 99TH PERCENTILE OF cTnI DISTRIBUTION IN A REFERENCE POPULATION, HAS BEEN CONFIRMED THE DECISION THRESHOLD FOR PR DIAGNOSIS. Performed By: #### L IPA, CMP, CRP, NAT #### [facility] [address] [place] [address] Dr. Keturah Fisher AMYLASEon 07-19-2021 Amylase [Catalytic activity/Vol] 198 U/L Critically high 25-115 [facility] Comment on above: Performed By: #### A MY, LIPA, CMP ####[facility] [address] [place] [address]Dr. Keturah Fisher CBC AUTO DIFFon 07-19-2021 BASO # 0.1 103/ul Normal 0.0-0.1 [facility] Comment on above: Performed By: #### C BC ####[facility] [address] [place], [place] [address]Dr. Keturah Fisher Basophils/100 WBC (Bld) 0.7 % Normal 0.2-2.0 [facility] Comment on above: Performed By: #### C BC ####[facility] [address] [place], [place] [address]DrGopal Fisher EO # 0.1 103/ul Normal 0.0-0.7 [facility] Comment on above: Performed By: #### C BC ####[facility] Xc[address] [place], [place] [address]Dr. Keturah Fisher Eosinophils/100 WBC (Bld) 1.0 % Normal 0.9-7.0 [facility] Comment on above: Performed By: #### C BC ####[facility] [address] [place], [place] [address]DrGopal Fisher Erythrocyte distribution width (RBC) [Ratio] 12.5 % Normal 11.0-15.0 [facility] Comment on above: Performed By: #### C BC ####[facility] [address] [place], [place] [address]DrGopal Fisher Hematocrit (Bld) [Volume fraction] 42.4 % Normal 36.0-48.0 [facility] Comment on above: Performed By: #### C BC ####[facility] [address] [place], [place] [address]DrGopal Fisher Hemoglobin (Bld) [Mass/Vol] 14.2 g/dL Normal 12.0-16.0 [facility] Comment on above: Performed By: #### C BC ####[facility] [address] [place] [phone]. Keturah Fisher IG # 0.03 10e3/ul Normal 0.00-0.03 [facility] Comment on above: Performed By: #### C BC ####[facility] [address]mcvhptmx[address] [place] [phone]. Keturah Fisher IG % 0.3 % Normal 0.0-0.5 [facility] Comment on above: Performed By: #### C BC ####[facility] I[address]lorziq[address] [place] [phone]. Keturah Fisher LYMPH # 3.0 103/ul Normal 1.2-3.8 [facility] Comment on above: Performed By: #### C BC ####[facility] [address]coobxj[address] [place] [address]Dr. Keturah Fisher Lymphocytes/100 WBC (Bld) 29.5 % Normal 20.5-60.0 [facility] Comment on above: Performed By: #### C BC ####[facility] [address]vwv[address] [place] [phone]. Keturah Fisher MANUAL DIFF REQ NO Normal [facility] Comment on above: Performed By: #### C BC ####[facility] [address]ytz[address] [place] [phone]. Keturah Fisher MCH (RBC) [Entitic mass] 32.8 pg Normal 26.7-34.0 [facility] Comment on above: Performed By: #### C BC ####[facility] [address] [place], [place] [id number]. Keturah Fisher MCHC (RBC) [Mass/Vol] 33.5 g/dL Normal 29.9-35.2 [facility] Comment on above: Performed By: #### C BC ####[facility] [address]shibh[address] [place] [phone]. Keturah Fisher MCV (RBC) [Entitic vol] 97.9 fL Normal 81.0-99.0 [facility] Comment on above: Performed By: #### C BC ####[facility] E[address]behss[address] [place] [phone]. Keturah Fisher MONO # 1.0 103/ul Critically high 0.3-0.8 [facility] Comment on above: Performed By: #### C BC ####[facility] W[address]ffmfbk[address] [place] [id number]. Keturah Fisher Monocytes/100 WBC (Bld) 9.3 % Normal 1.7-12.0 [facility] Comment on above: Performed By: #### C BC ####[facility] Byhtsjynty[address] [place] [phone]. Keturah Fisher NEUT # 6.1 103/ul Normal 1.4-6.5 [facility] Comment on above: Performed By: #### C BC ####[facility] [address] [place], [place] [address]Dr. Keturah Fisher Neutrophils/100 WBC (Bld) 59.2 % Normal 43.0-75.0 [facility] Comment on above: Performed By: #### C BC ####[facility] X[address]rnyvjgs[address] [place] [address]Dr. Keturah Fisher Platelet mean volume (Bld) [Entitic vol] 9.8 fL Normal 9.5-13.5 [facility] Comment on above: Performed By: #### C BC ####[facility] [address]mxu[address] [place] [address]Dr. Keturah Fisher PLT 249 103/ul Normal 150-450 [facility] Comment on above: Performed By: #### C BC ####[facility] [address] [place], [place] [id number]. Keturah Fisher RBC 4.33 106/ul Normal 4.20-5.40 [facility] Comment on above: Performed By: #### C BC ####[facility] [address]sp[address] [place] [address]Dr. Keturah Fisher WBC 10.2 103/ul Normal 4.0-11.0 [facility] Comment on above: Performed By: #### C BC ####[facility] [address]ev[address] [place] [address]Dr. Keturah Fisher LIPASEon 07-19-2021 Lipase [Catalytic activity/Vol] 554.0 U/L Critically high 73.0-393.0 [facility] Comment on above: Performed By: #### A MY, LIPA, CMP ####[facility] [address]gc[address] [place] [address]Dr. Keturah Fisher PROF 14(COMP METB)on 022 Albumin [Mass/Vol] 4.0 g/dL Normal 3.4-5.0 [facility] Comment on above: Performed By: #### A MY, LIPA, CMP ####[facility] [address] [place], [place] [address]Dr. Keturah Fisher Albumin/Globulin [Mass ratio] 1.1 {ratio} Normal [facility] Comment on above: Performed By: #### A MY, LIPA, CMP ####[facility] [address]vx[address] [place], [place] [address]Dr. Keturah Fisher ALP [Catalytic activity/Vol] 141 U/L Critically high 46-116 [facility] Comment on above: Performed By: #### A MY, LIPA, CMP ####[facility] [address] [place], [place] [address]Dr. Keturah Fisher ALT [Catalytic activity/Vol] 21 U/L Normal 14-59 [facility] Comment on above: Performed By: #### A MY, LIPA, CMP ####[facility] [address]qs[address] [place] [address]Dr. Keturah Fisher Anion gap [Moles/Vol] 10.3 mmol/L Normal [facility] Comment on above: Performed By: #### A MY, LIPA, CMP ####[facility] [address]uzxxr[address] [place] [address]Dr. Keturah Fisher AST [Catalytic activity/Vol] 22 U/L Normal 15-37 [facility] Comment on above: Performed By: #### A MY, LIPA, CMP ####[facility] F[address]relfhse[address] [place] [address]Dr. Keturah Fisher Bilirubin [Mass/Vol] 0.3 mg/dL Normal 0.2-1.0 [facility] Comment on above: Performed By: #### A ROB BERNSTEIN, CMP ####[facility] [address] [address]Dr. Keturah Fisher Calcium [Mass/Vol] 9.9 mg/dL Normal 8.5-10.1 [facility] Comment on above: Performed By: #### A ROB BERNSTEIN, CMP ####[facility] [address] [id number]. Keturah Fisher Chloride [Moles/Vol] 103 mmol/L Normal 98-107 [facility] Comment on above: Performed By: #### A ROB BERNSTEIN, CMP ####[facility] [address] [place], [place] [address]Dr. Keturah Fisher CO2 [Moles/Vol] 27.6 mmol/L Normal 21.0-32.0 [facility] Comment on above: Performed By: #### A ROB BERNSTEIN, CMP ####[facility] [address] [address]Dr. Keturah Fisher Creatinine [Mass/Vol] 0.93 mg/dL Normal 0.55-1.02 [facility] Comment on above: Performed By: #### A ROB BERNSTEIN, CMP ####[facility] [address] [place], [place] [address]Dr. Keturah Fisher EGFR-AF BENINESE >60 Normal >=60 [facility] Comment on above: Performed By: #### A AMANDEEP LIPA, CMP ####[facility] [address] [id number]. Keturah Fisher EGFR-NON AF BENINESE >60 Normal >=60 [facility] Comment on above: Performed By: #### A ROB BERNSTEIN, CMP ####[facility] [address] [place], [place] [address]Dr. Keturah Fisher Globulin (S) [Mass/Vol] 3.5 g/dL Normal [facility] Comment on above: Performed By: #### A MY, LIPA, CMP ####[facility] [address] [address]Dr. Keturah Fisher Glucose [Mass/Vol] 99 mg/dL Normal 74-106 [facility] Comment on above: Performed By: #### A MY LIPA, CMP ####[facility] [address] [address]Dr. Keturah Fisher Potassium [Moles/Vol] 3.9 mmol/L Normal 3.5-5.1 [facility] Comment on above: Performed By: #### A MY LIPA, CMP ####[facility] [address] [place] [address]Dr. Keturah Fisher Protein [Mass/Vol] 7.5 g/dL Normal 6.4-8.2 [facility] Comment on above: Performed By: #### A AMANDEEP LIPA, CMP ####[facility] [address] [address]Dr. Keturah Fisher Sodium [Moles/Vol] 137 mmol/L Normal 136-145 [facility] Comment on above: Performed By: #### A AMANDEEP LIPA, CMP ####[facility] [address] [address]Dr. Keturah Fisher Urea nitrogen [Mass/Vol] 9.0 mg/dL Normal 7.0-18.0 [facility] Comment on above: Performed By: #### A AMANDEEP LIPA, CMP ####[facility] [address] [place], [place] [address]Dr. Keturah Fisher Urea nitrogen/Creatinine [Mass ratio] 9.7 mg/mg Normal [facility] Comment on above: Performed By: #### A AMANDEEP LIPA, CMP ####[facility] [address] [place], [place] [address]Dr. Keturah Fisher XR ABD FLAT UP_PA Jorje [...] by: LYNNE PERDOMO Date: 2021-07-19 16:57 Normal [facility] COVID Quick Testingon 2021 Result Positive morphCARD Other ANES Marcial 11-13-2020 ANES POST HNO ID: [id number] Author: Ion Avila MD Service: Anesthesiology Author [...] 13, 2020 TIME: 12:38 PM PAGER/CONTACT #: [phone] Normal [facility] NURSING PROGon 11-13-2020 NURSING PROG HNO ID: [id number] Author: Viky Nguyen RN Service: Nursing Author [...] None Electronically Signed By: Yaquelin Nguyen RN [facility] NURSING PROG HNO ID: [id number] Author: Landy Smith RN Service: Nursing Author [...] By: Landy Smith RN In [facility]: [facility] CHIOMA RAINEY ([id number]) 1970 F Date Time Provider Department 11/07/20 [...] have family/friend present for procedure? transport home:Patient/patient equal opportunity representative was told that if they do [...] area. 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 Type of instruction [...] Status:Closed by NASREEN GORMAN on 11/07/20 Normal [facility] Amylaseon 03-26-2020 Amylase [Catalytic activity/Vol] 185 U/L High 28 - 100 U/L [place], [place] CBC Auto Differentialon 03-09 Basophils (Bld) [#/Vol] 0.06 10*3/uL [place] Basophils/100 WBC (Bld) 1 % 0 - 2 % [place] Differential Type NOT REPORTED [place] Eosinophils (Bld) [#/Vol] 0.12 10*3/uL [place] Eosinophils/100 WBC (Bld) 1 % 1 - 4 % [place] Erythrocyte distribution width (RBC) [Ratio] 12.4 % 11.8 - 14.4 % [place] Hematocrit (Bld) [Volume fraction] 40.6 % 36.3 - 47.1 % [place] Hemoglobin (Bld) [Mass/Vol] 13.7 g/dL 11.9 - 15.1 g/dL [place] Immature granulocytes (Bld) [#/Vol] 0 % 0 [place] Immature granulocytes (Bld) [#/Vol] 10*3/uL [place] Lymphocytes (Bld) [#/Vol] 2.62 10*3/uL [place] Lymphocytes/100 WBC (Bld) 27 % 24 - 43 % [place] MCH (RBC) [Entitic mass] 33.4 pg 25.2 - 33.5 pg [place] MCHC (RBC) [Mass/Vol] 33.7 g/dL 28.4 - 34.8 g/dL [place] MCV (RBC) [Entitic vol] 99.0 fL 82.6 - 102.9 fL [place] Monocytes (Bld) [#/Vol] 0.78 10*3/uL [place] Monocytes/100 WBC (Bld) 8 % 3 - 12 % [place] Platelet mean volume (Bld) [Entitic vol] 9.4 fL 8.1 - 13.5 fL [place] Platelets (Bld) [#/Vol] 235 10*3/uL [place] Platelets (Bld) [#/Vol] NOT REPORTED [place] RBC (Bld) [#/Vol] 4.10 10*6/uL 3.95 - 5.11 m/uL [place] RBC morphology finding Nom (Bld) NOT REPORTED [place] Segmented neutrophils/100 WBC (Bld) 63 % 36 - 65 % [place] Segs Absolute 5.96 [place] WBC (Bld) [#/Vol] 9.6 10*3/uL [place] WBC (Bld) [#/Vol] 0.0 10*3/uL 0.0 per 100 WBC [place] WBC Morphology NOT REPORTED [place] Comprehensive Metabolic Pane l w/ Reflex to MGon 03-26-2020 Albumin [Mass/Vol] 4.3 g/dL 3.5 - 5.2 g/dL [place] Albumin/Globulin [Mass ratio] 1.7 {ratio} [place] ALP [Catalytic activity/Vol] 117 U/L High 35 - 104 U/L [place] ALT [Catalytic activity/Vol] 11 U/L 5 - 33 U/L [place] Anion gap [Moles/Vol] 9 mmol/L 9 - 17 mmol/L [place] AST [Catalytic activity/Vol] 18 U/L <32 [place] Bilirubin Ql (U) 0.15 mg/dL Low 0.3 - 1.2 mg/dL [place] Bun/Cre Ratio 12 [place] Calcium [Mass/Vol] 9.7 mg/dL 8.6 - 10. 4 mg/dL [place] Chloride [Moles/Vol] 102 mmol/L 98 - 10 7 mmol/L [place] CO2 [Moles/Vol] 25 mmol/L 20 - 31 mmol/L [place] Creatinine [Mass/Vol] 0.74 mg/dL 0.5 - 0.9 mg/dL [place] GFR >60 >60 mL/min [place] GFR Non- >60 >60 mL/min [place] Glucose [Mass/Vol] 94 mg/dL 70 - 99 mg/dL [place] Potassium [Moles/Vol] 4.2 mmol/L 3.7 - 5.3 mmol/L [place] Protein [Mass/Vol] 6.8 g/dL 6.4 - 8.3 g/dL [place] Sodium [Moles/Vol] 136 mmol/L 135 - 144 mmol/L [place] Urea nitrogen [Mass/Vol] 9 mg/dL 6 - 20 mg/dL [place] Lactic Acidon 03-26-2020 Lactate [Moles/Vol] 1.3 mmol/L 0.5 - 2. 2 mmol/L [place] Lipaseon 03-26-2020 Interpretation and review of laboratory results Abnormal [place] Lipase [Catalytic activity/Vol] 225 U/L Critically high 13 - 60 U/L [place] Metabolic Panelon 03-26-2020 GFR/1.73 sq M predicted among non-blacks MDRD (S/P/Bld) [Vol rate/Area] [place] Comment on above: Average GFR for 50-5 9 years old: 93 mL/min/1.73sq m Chronic Kidney Disease: <60 mL/min/1.73sq m Kidney failure: <15 mL/min/1.73sq m eGFR calculated using average adult body mass. Additional eGFR calculator available at: http://www.[employer]./multiple_crcl_2012.htm Stage 1: Some kidney damage normal GFR Stage 2: Mild kidney damage GFR 60-89 Stage 3: Moderate kidney damage GFR 30-59 Stage 4: Severe kidney damage GFR 15-29 Stage 5: Severe kidney damage GFR <15 ESRD - chronic treatment by dialysis or transplant Otheron 03-26-2020 Interpretation and review of laboratory results Abnormal [place] SPECIMEN REJECTIONon 021 Ordered Test CDP [place] Reason for Rejection Unable to perform testing: Specimen clotted. [place] Specimen source Nom (Unsp spec) .BLOOD [place] - NOT REPORTED [place] Urinalysis, reflex to micros copicon 03-26-2020 Bilirubin U[facility] [place] [place] Color, UA YELLOW YELLOW [place] Glucose, Ur Negative NEGATIVE [place] Ketones Ql (U) Negative NEGATIVE [place] Leukocyte esterase Test strip Ql (U) Negative NEGATIVE [place] Nitrite, Urine Negative NEGATIVE [place] pH, UA 5.5 [place] Protein (U) [Mass/Vol] Negative NEGATIVE [place] Specific [place], UA 1.010 [place], [place] Turbidity UA CLEAR CLEAR [place] Urinalysis Comments NOT REPORTED [place] Urine Hgb Negative NEGATIVE [place] Urobilinogen, Urine Normal Normal [place] CBC auto differentialon 08-07 Basophils (Bld) [#/Vol] 0.04 10*3/uL [place] Basophils/100 WBC (Bld) 1 % 0 - 2 % [place] Differential Type NOT REPORTED [place] Eosinophils (Bld) [#/Vol] 0.10 10*3/uL [place] Eosinophils/100 WBC (Bld) 1 % 1 - 4 % [place] Erythrocyte distribution width (RBC) [Ratio] 13.0 % 11.8 - 14.4 % [place] Hematocrit (Bld) [Volume fraction] 35.2 % Low 36.3 - 47.1 % [place] Hemoglobin (Bld) [Mass/Vol] 11.7 g/dL Low 11.9 - 15.1 g/dL [place] Immature granulocytes (Bld) [#/Vol] 10*3/uL [place] Immature granulocytes (Bld) [#/Vol] 0 % 0 [place] Interpretation and review of laboratory results Abnormal [place] Lymphocytes (Bld) [#/Vol] 1.87 10*3/uL [place] Lymphocytes/100 WBC (Bld) 22 % Low 24 - 43 % [place] MCH (RBC) [Entitic mass] 32.5 pg 25.2 - 33.5 pg [place] MCHC (RBC) [Mass/Vol] 33.2 g/dL 28.4 - 34.8 g/dL [place] MCV (RBC) [Entitic vol] 97.8 fL 82.6 - 102.9 fL [place] Monocytes (Bld) [#/Vol] 0.86 10*3/uL [place] Monocytes/100 WBC (Bld) 10 % 3 - 12 % [place] Platelet mean volume (Bld) [Entitic vol] 9.8 fL 8.1 - 13.5 fL [place] Platelets (Bld) [#/Vol] NOT REPORTED [place] Platelets (Bld) [#/Vol] 178 10*3/uL [place] RBC (Bld) [#/Vol] 3.60 10*6/uL Low 3.95 - 5.11 m/uL [place] RBC morphology finding Nom (Bld) NOT REPORTED [place] Segmented neutrophils/100 WBC (Bld) 66 % High 36 - 65 % [place] Segs Absolute 5.53 [place] WBC (Bld) [#/Vol] 0.0 10*3/uL 0.0 per 100 WBC [place] WBC (Bld) [#/Vol] 8.4 10*3/uL [place] WBC Morphology NOT REPORTED [place] Lipaseon 08-25-2019 Lipase [Catalytic activity/Vol] 42 U/L 13 - 60 U/L [place] CBC auto differentialon 08-07 Basophils (Bld) [#/Vol] 0.04 10*3/uL [place] Basophils/100 WBC (Bld) 1 % 0 - 2 % [place] Differential Type NOT REPORTED [place] Eosinophils (Bld) [#/Vol] 0.08 10*3/uL [place] Eosinophils/100 WBC (Bld) 1 % 1 - 4 % [place] Erythrocyte distribution width (RBC) [Ratio] 12.9 % 11.8 - 14.4 % [place] Hematocrit (Bld) [Volume fraction] 35.9 % Low 36.3 - 47.1 % [place] Hemoglobin (Bld) [Mass/Vol] 11.9 g/dL 11.9 - 15.1 g/dL [place] Immature granulocytes (Bld) [#/Vol] 0 % 0 [place] Immature granulocytes (Bld) [#/Vol] 0.03 10*3/uL [place] Interpretation and review of laboratory results Abnormal [place] Lymphocytes (Bld) [#/Vol] 1.79 10*3/uL [place] Lymphocytes/100 WBC (Bld) 22 % Low 24 - 43 % [place] MCH (RBC) [Entitic mass] 32.3 pg 25.2 - 33.5 pg [place] MCHC (RBC) [Mass/Vol] 33.1 g/dL 28.4 - 34.8 g/dL [place] MCV (RBC) [Entitic vol] 97.6 fL 82.6 - 102.9 fL [place] Monocytes (Bld) [#/Vol] 0.75 10*3/uL [place] Monocytes/100 WBC (Bld) 9 % 3 - 12 % [place] Platelet mean volume (Bld) [Entitic vol] 10.1 fL 8.1 - 13.5 fL [place] Platelets (Bld) [#/Vol] 176 10*3/uL [place] Platelets (Bld) [#/Vol] NOT REPORTED [place] RBC (Bld) [#/Vol] 3.68 10*6/uL Low 3.95 - 5.11 m/uL [place] RBC morphology finding Nom (Bld) NOT REPORTED [place] Segmented neutrophils/100 WBC (Bld) 67 % High 36 - 65 % [place] Segs Absolute 5.61 [place] WBC (Bld) [#/Vol] 0.0 10*3/uL 0.0 per 100 WBC [place] WBC (Bld) [#/Vol] 8.3 10*3/uL [place] WBC Morphology NOT REPORTED [place] Lipaseon 08-24-2019 Interpretation and review of laboratory results Abnormal [place] Lipase [Catalytic activity/Vol] 69 U/L High 13 - 60 U/L [place] CBC auto differentialon 08-07 Basophils (Bld) [#/Vol] 0.05 10*3/uL [place] Basophils/100 WBC (Bld) 1 % 0 - 2 % [place] Differential Type NOT REPORTED [place] Eosinophils (Bld) [#/Vol] 0.13 10*3/uL [place] Eosinophils/100 WBC (Bld) 2 % 1 - 4 % [place] Erythrocyte distribution width (RBC) [Ratio] 13.2 % 11.8 - 14.4 % [place] Hematocrit (Bld) [Volume fraction] 36.7 % 36.3 - 47.1 % [place] Hemoglobin (Bld) [Mass/Vol] 11.8 g/dL Low 11.9 - 15.1 g/dL [place] Immature granulocytes (Bld) [#/Vol] 0 % 0 [place] Immature granulocytes (Bld) [#/Vol] 10*3/uL [place] Interpretation and review of laboratory results Abnormal [place] Lymphocytes (Bld) [#/Vol] 2.39 10*3/uL [place] Lymphocytes/100 WBC (Bld) 28 % 24 - 43 % [place] MCH (RBC) [Entitic mass] 32.1 pg 25.2 - 33.5 pg [place] MCHC (RBC) [Mass/Vol] 32.2 g/dL 28.4 - 34.8 g/dL [place] MCV (RBC) [Entitic vol] 99.7 fL 82.6 - 102.9 fL [place] Monocytes (Bld) [#/Vol] 0.77 10*3/uL [place] Monocytes/100 WBC (Bld) 9 % 3 - 12 % [place] Platelet mean volume (Bld) [Entitic vol] 10.1 fL 8.1 - 13.5 fL [place] Platelets (Bld) [#/Vol] 174 10*3/uL [place] Platelets (Bld) [#/Vol] NOT REPORTED [place] RBC (Bld) [#/Vol] 3.68 10*6/uL Low 3.95 - 5.11 m/uL [place] RBC morphology finding Nom (Bld) NOT REPORTED [place] Segmented neutrophils/100 WBC (Bld) 60 % 36 - 65 % [place] Segs Absolute 5.22 [place] WBC (Bld) [#/Vol] 0.0 10*3/uL 0.0 per 100 WBC [place] WBC (Bld) [#/Vol] 8.6 10*3/uL [place] WBC Morphology NOT REPORTED [place] Comprehensive metabolic pane nimesh 08-23-2019 Albumin [Mass/Vol] 3.4 g/dL Low 3.5 - 5.2 g/dL [place] Albumin/Globulin [Mass ratio] 1.7 {ratio} [place] ALP [Catalytic activity/Vol] 102 U/L 35 - 104 U/L [place] ALT [Catalytic activity/Vol] 34 U/L High 5 - 33 U/L [place] Anion gap [Moles/Vol] 7 mmol/L Low 9 - 17 mmol/L [place] AST [Catalytic activity/Vol] 95 U/L High <32 [place] Bilirubin Ql (U) 0.46 mg/dL 0.3 - 1.2 mg/dL [place] Bun/Cre Ratio 11 [place], [place] Calcium [Mass/Vol] 8.4 mg/dL Low 8.6 - 10. 4 mg/dL [place] Chloride [Moles/Vol] 109 mmol/L High 98 - 10 7 mmol/L [place] CO2 [Moles/Vol] 22 mmol/L 20 - 31 mmol/L [place] Creatinine [Mass/Vol] 0.66 mg/dL 0.5 - 0.9 mg/dL [place] GFR >60 >60 mL/min [place] GFR Non- >60 >60 mL/min [place] Glucose [Mass/Vol] 89 mg/dL 70 - 99 mg/dL [place] Potassium [Moles/Vol] 4.3 mmol/L 3.7 - 5.3 mmol/L [place] Protein [Mass/Vol] 5.4 g/dL Low 6.4 - 8.3 g/dL [place] Sodium [Moles/Vol] 138 mmol/L 135 - 144 mmol/L [place], [place] Urea nitrogen [Mass/Vol] 7 mg/dL 6 - 20 mg/dL [place] Lipaseon 08-23-2019 Lipase [Catalytic activity/Vol] 96 U/L High 13 - 60 U/L [place] Metabolic Panelon 08-23-2019 GFR/1.73 sq M predicted among non-blacks MDRD (S/P/Bld) [Vol rate/Area] [place], [place] Comment on above: Stage 1: Some [...] body mass. Additional eGFR calculator available at: http://www.[employer]./multiple_crcl_2012.htm Otheron 08-23-2019 Interpretation and review of laboratory results Abnormal [place] CBC Auto Differentialon 08-07 Basophils (Bld) [#/Vol] 0.06 10*3/uL [place] Basophils/100 WBC (Bld) 1 % 0 - 2 % [place] Differential Type NOT REPORTED [place] Eosinophils (Bld) [#/Vol] 0.11 10*3/uL [place] Eosinophils/100 WBC (Bld) 1 % 1 - 4 % [place] Erythrocyte distribution width (RBC) [Ratio] 13.2 % 11.8 - 14.4 % [place] Hematocrit (Bld) [Volume fraction] 41.8 % 36.3 - 47.1 % [place] Hemoglobin (Bld) [Mass/Vol] 13.7 g/dL 11.9 - 15.1 g/dL [place] Immature granulocytes (Bld) [#/Vol] 0.03 10*3/uL [place] Immature granulocytes (Bld) [#/Vol] 0 % 0 [place] Interpretation and review of laboratory results Abnormal [place] Lymphocytes (Bld) [#/Vol] 2.23 10*3/uL [place] Lymphocytes/100 WBC (Bld) 24 % 24 - 43 % [place] MCH (RBC) [Entitic mass] 32.6 pg 25.2 - 33.5 pg [place] MCHC (RBC) [Mass/Vol] 32.8 g/dL 28.4 - 34.8 g/dL [place] MCV (RBC) [Entitic vol] 99.5 fL 82.6 - 102.9 fL [place] Monocytes (Bld) [#/Vol] 0.72 10*3/uL [place] Monocytes/100 WBC (Bld) 8 % 3 - 12 % [place] Platelet mean volume (Bld) [Entitic vol] 10.0 fL 8.1 - 13.5 fL [place] Platelets (Bld) [#/Vol] NOT REPORTED [place] Platelets (Bld) [#/Vol] 213 10*3/uL [place] RBC (Bld) [#/Vol] 4.20 10*6/uL 3.95 - 5.11 m/uL [place] RBC morphology finding Nom (Bld) NOT REPORTED [place] Segmented neutrophils/100 WBC (Bld) 66 % High 36 - 65 % [place] Segs Absolute 6.22 [place] WBC (Bld) [#/Vol] 0.0 10*3/uL 0.0 per 100 WBC [place] WBC (Bld) [#/Vol] 9.4 10*3/uL [place] WBC Morphology NOT REPORTED [place] Comprehensive Metabolic Pane nimesh 08-22-2019 Albumin [Mass/Vol] 4.1 g/dL 3.5 - 5.2 g/dL [place] Albumin/Globulin [Mass ratio] 1.6 {ratio} [place] ALP [Catalytic activity/Vol] 109 U/L High 35 - 104 U/L [place] ALT [Catalytic activity/Vol] 13 U/L 5 - 33 U/L [place] Anion gap [Moles/Vol] 9 mmol/L 9 - 17 mmol/L [place] AST [Catalytic activity/Vol] 22 U/L <32 [place] Bilirubin Ql (U) <0.10 Low 0.3 - 1.2 mg/dL [place] Bun/Cre Ratio 13 [place] Calcium [Mass/Vol] 9.2 mg/dL 8.6 - 10. 4 mg/dL [place] Chloride [Moles/Vol] 103 mmol/L 98 - 10 7 mmol/L [place] CO2 [Moles/Vol] 24 mmol/L 20 - 31 mmol/L [place] Creatinine [Mass/Vol] 0.63 mg/dL 0.5 - 0.9 mg/dL [place] GFR >60 >60 mL/min [place] GFR Non- >60 >60 mL/min [place] Glucose [Mass/Vol] 92 mg/dL 70 - 99 mg/dL [place] Interpretation and review of laboratory results Abnormal [place] Potassium [Moles/Vol] 3.8 mmol/L 3.7 - 5.3 mmol/L [place] Protein [Mass/Vol] 6.7 g/dL 6.4 - 8.3 g/dL [place] Sodium [Moles/Vol] 136 mmol/L 135 - 144 mmol/L [place] Urea nitrogen [Mass/Vol] 8 mg/dL 6 - 20 mg/dL [place] Lactic Acid, Plasmaon 2019 Lactate [Moles/Vol] 1.5 mmol/L 0.5 - 2. 2 mmol/L [place] Lactic Acid, Whole Blood NOT REPORTED 0.7 - 2.1 mmol/L [place] Lipaseon 08-22-2019 Interpretation and review of laboratory results Abnormal [place] Lipase [Catalytic activity/Vol] 255 U/L Critically high 13 - 60 U/L [place] Metabolic Panelon 08-22-2019 GFR/1.73 sq M predicted among non-blacks MDRD (S/P/Bld) [Vol rate/Area] [place] Comment on above: Average GFR for 50-5 9 years old: 93 mL/min/1.73sq m Chronic Kidney Disease: <60 mL/min/1.73sq m Kidney failure: <15 mL/min/1.73sq m eGFR calculated using average adult body mass. Additional eGFR calculator available at: http://www.[employer].nextsocial/multiple_crcl_2012.htm Stage 1: Some kidney damage normal GFR Stage 2: Mild kidney damage GFR 60-89 Stage 3: Moderate kidney damage GFR 30-59 Stage 4: Severe kidney damage GFR 15-29 Stage 5: Severe kidney damage GFR <15 ESRD - chronic treatment by dialysis or transplant Urinalysis with Microscopico n 08-22-2019 Amorphous, UA NOT REPORTED None [facility], [place] Bacteria, UA NOT REPORTED None [place] Bilirubin Urine Negative NEGATIVE [facility], [place] Casts UA NOT REPORTED /LPF [place] Color, UA YELLOW YELLOW [place] Crystals, UA NOT REPORTED None /HPF [place] Epithelial Cells UA 2 TO 5 [place] Glucose, Ur Negative NEGATIVE [place] Interpretation and review of laboratory results Abnormal [place] Ketones Ql (U) Negative NEGATIVE [place] Leukocyte esterase Test strip Ql (U) Negative NEGATIVE [place] Mucus, UA NOT REPORTED None [place] Nitrite, Urine Negative NEGATIVE [place] Other Observations UA NOT REPORTED NOT REQ. [place] pH, UA 6.0 [place] Protein (U) [Mass/Vol] Negative NEGATIVE [place], [place] RBC (U) [#/Vol] None [place] Renal Epithelial, UA NOT REPORTED 0 /HPF [place] Specific [place], UA <1.005 Low [place] Trichomonas, UA NOT REPORTED [facility] [place] Turbidity UA CLEAR CLEAR [place] Urinalysis Comments NOT REPORTED [place] Urine Hgb Negative NEGATIVE [place] Urobilinogen, Urine Normal Normal [place] WBC, UA None [place] Yeast, UA NOT REPORTED None [place] - [place] CBC WITH AUTO DIFFERENTIALon 03-04-2018 Basophils Auto #/vol (Bld) 0.07 10*3/uL Invalid Interpretation Code [facility] Basophils/100 WBC Auto (Bld) 0.7 % Invalid Interpretation Code [facility] Eosinophils Auto #/vol (Bld) 0.09 10*3/uL Invalid Interpretation Code [facility] Eosinophils/100 WBC Auto (Bld) 0.9 % Invalid Interpretation Code [facility] Erythrocyte distribution width Auto Entitic volume (RBC) 12.8 % Invalid Interpretation Code 11.6 - 14.8 % [facility] Hematocrit Auto Volume Fraction (Bld) 45.0 % Invalid Interpretation Code 36 - 46 % [facility] Hemoglobin mass conc (Bld) 15.4 g/dL Invalid Interpretation Code 12 - 16 g/dL [facility] Immature granulocytes #/vol (Bld) 0.03 10*3/uL Invalid Interpretation Code [facility] Immature granulocytes/100 WBC (Bld) 0.30 % Invalid Interpretation Code [facility] Comment on above: The IG parameter is the percentage of metamyelocytes, myelocytes, and promyelocytes. Interpretation and review of laboratory results Abnormal Invalid Interpretation Code [facility] Lymphocytes Auto #/vol (Bld) 2.22 10*3/uL Invalid Interpretation Code [facility] Lymphocytes/100 WBC Auto (Bld) 21.0 % Invalid Interpretation Code [facility] MCH Auto Entitic mass (RBC) 33.6 pg Invalid Interpretation Code 26 - 34 pg [facility] MCHC Auto mass conc (RBC) 34.2 g/dL Invalid Interpretation Code 31 - 37 g/dL [facility] MCV Auto Entitic volume (RBC) 98.0 fL Invalid Interpretation Code 80 - 100 fL [facility] Monocytes Auto #/vol (Bld) 0.82 10*3/uL Invalid Interpretation Code [facility] Monocytes/100 WBC Auto (Bld) 7.8 % Invalid Interpretation Code [facility] Neutrophils Auto #/vol (Bld) 7.33 10*3/uL High [facility] Neutrophils/100 WBC Auto (Bld) 69.3 % Invalid Interpretation Code [facility] Nucleated RBC #/vol (Bld) 0.00 10*3/uL Invalid Interpretation Code [facility] Nucleated RBC/100 WBC Ratio (Bld) 0.0 % Invalid Interpretation Code [facility] Platelet mean volume Auto Entitic volume (Bld) 10.1 fL Invalid Interpretation Code 9 - 15.5 fL [facility] Platelets Auto #/vol (Bld) 254 10*3/uL Invalid Interpretation Code [facility] RBC Auto #/vol (Bld) 4.59 10*6/uL Invalid Interpretation Code [facility] WBC Auto #/vol (Bld) 10.56 10*3/uL Invalid Interpretation Code [facility] Chem 7on 03-04-2018 Anion gap 3 molar conc 15 mmol/L Invalid Interpretation Code 10 - 20 mmol/L [facility] Chloride molar conc 103 mmol/L Invalid Interpretation Code 98 - 108 mmol/L [facility] Creatinine mass conc 0.85 mg/dL Invalid Interpretation Code 0.4 - 1.1 mg/dL [facility] GFR/1.73 sq M predicted among non-blacks MDRD vol rate/area (S/P/Bld) The eGFR should be used for monitoring renal function only and not for medication dosing. Invalid Interpretation Code [facility] GFR/1.73 sq M.predicted CKD-EPI vol rate/area (S/P/Bld) 81 Invalid Interpretation Code >=60 mL/min/1.7 3 m2 [facility] Glucose mass conc 92 mg/dL Invalid Interpretation Code 65 - 99 mg/dL [facility] HCO3 molar conc 25 mmol/L Invalid Interpretation Code 21 - 32 mmol/L [facility] Potassium molar conc 4.4 mmol/L Invalid Interpretation Code 3.5 - 5.1 mmol/L [facility] Sodium molar conc 139 mmol/L Invalid Interpretation Code 135 - 145 mmol/L [facility] Urea nitrogen mass conc 7 mg/dL Low 8 - 25 mg/dL [facility] Urea nitrogen/Creatinine mass ratio 8.2 mg/mg Low [facility] Hepatic Function Panel (LFT) on 03-04-2018 Albumin mass conc 4.5 g/dL Invalid Interpretation Code 3.2 - 5.2 g/dL [facility] ALP enzyme act/vol 97 U/L Invalid Interpretation Code 40 - 150 U/L [facility] ALT enzyme act/vol 9 U/L Invalid Interpretation Code 0 - 40 U/L [facility] AST enzyme act/vol 15 U/L Invalid Interpretation Code 0 - 45 U/L [facility] Bilirubin mass conc mg/dL Invalid Interpretation Code 0 - 1.3 mg/dL [facility] Bilirubin.conjugated mass conc mg/dL Invalid Interpretation Code 0 - 0.4 mg/dL [facility] Interpretation and review of laboratory results Normal Invalid Interpretation Code [facility] Protein mass conc 7.2 g/dL Invalid Interpretation Code 6 - 8 g/dL [facility] Lipaseon 03-04-2018 Lipase enzyme act/vol 179 U/L High 15 - 6 5 U/L [facility] Otheron 03-04-2018 Extra Tube Hold for add-ons. Invalid Interpretation Code [facility] Comment on above: Auto resulted. Interpretation and review of laboratory results Abnormal Invalid Interpretation Code [facility] URINALYSISon 03-04-2018 Bacteria Auto Ql (U) Rare Abnormal None Se en /hpf [facility] Bilirubin Ql (U) Negative Invalid Interpretation Code Negative [facility] Clarity Refractometry automated Nom (U) Clear Invalid Interpretation Code Clear [facility] Color Auto Nom (U) Colorless Invalid Interpretation Code Colorless, Yellow [facility] Epithelial cells.squamous Auto #/area (Urine sed) 1 Invalid Interpretation Code [facility] Glucose Automated test strip mass conc (U) Negative Invalid Interpretation Code Negative mg/dL [facility] Hemoglobin Automated test strip Ql (U) Negative Invalid Interpretation Code Negative [facility] Interpretation and review of laboratory results Abnormal Invalid Interpretation Code [facility] Ketones mass conc (U) Negative Invalid Interpretation Code Negative mg/dL [facility] Leukocyte esterase Automated test strip Ql (U) Negative Invalid Interpretation Code Negative [facility] Nitrite Automated test strip Ql (U) Negative Invalid Interpretation Code Negative [facility] pH Test strip (U) 7.0 [pH] Invalid Interpretation Code [facility] Protein mass conc (U) Negative Invalid Interpretation Code Negative mg/dL [facility] RBC Auto #/area (Urine sed) 2 Invalid Interpretation Code [facility] Specific gravity Automated test strip Relative Density (U) 1.004 Low [facility] Urobilinogen Test strip Qn (U) <2.0 Invalid Interpretation Code <2.0 mg/dL [facility] WBC Auto #/area (Urine sed) <1 Invalid Interpretation Code [facility] Microscopic examinat ion is performed on all urinalysis samples and only positive findings are reported. The test for blood on the chemical analytic portion of urinalysis may also be positive due to hemoglobinuria and myoglobinuria and if red blood cells are present they are quantified by microscopic examination. Invalid Interpretation Code [facility] BMPon 08-24-2017 Anion gap 18 mmol/L Invalid Interpretation Code 10 - 20 mmol/L [facility] Bicarbonate (HCO3) 27 mmol/L Invalid Interpretation Code 21 - 32 mmol/L [facility] BUN/Creatinine Ratio 10.1 mg/mg Invalid Interpretation Code 10.0 - 20.0 [facility] Calcium 10.6 mg/dL High 8.4 - 10.2 mg/dL [facility] Chloride 101 mmol/L Invalid Interpretation Code 98 - 108 mmol/L [facility] Creatinine 0.69 mg/dL Invalid Interpretation Code 0.4 - 1.1 mg/dL [facility] eGFR (non-black) 103 mL/min/{1.73_m2} Invalid Interpretation Code >=60 [facility] eGFR (non-black) The eGFR should be u sed for monitoring renal function only and not for medication dosing. Invalid Interpretation Code [facility] Glucose mass conc 105 mg/dL High 65 - 99 mg/dL [facility] Interpretation and review of laboratory results Abnormal Invalid Interpretation Code [facility] Potassium molar conc 4.1 mmol/L Invalid Interpretation Code 3.5 - 5.1 mmol/L [facility] Sodium 142 mmol/L Invalid Interpretation Code 135 - 145 mmol/L [facility] Urea nitrogen 7 mg/dL Low 8 - 25 mg/dL [facility] CBC Auto Differentialon 08-07 Basophils Auto #/vol (Bld) 0.08 K/mcL Invalid Interpretation Code 0.00 - 0.30 [facility] Basophils/100 WBC Auto (Bld) 0.6 % Invalid Interpretation Code [facility] Eosinophils 0.05 K/mcL Invalid Interpretation Code 0.00 - 0.50 [facility] Eosinophils/100 leukocytes 0.4 % Invalid Interpretation Code [facility] Erythrocyte distribution width Auto Entitic volume (RBC) 12.2 % Invalid Interpretation Code 11.6 - 14.8 % [facility] Erythrocytes (RBC) 4.60 M/mcL Invalid Interpretation Code 4.00 - 5.20 [facility] Hematocrit (HCT) 43.4 % Invalid Interpretation Code 36 - 46 % [facility] Hemoglobin mass conc (Bld) 15.2 g/dL Invalid Interpretation Code 12 - 16 g/dL [facility] Immature granulocytes #/vol (Bld) 0.05 K/mcL Invalid Interpretation Code 0.00 - 0.30 [facility] Immature granulocytes/100 WBC (Bld) 0.40 % Invalid Interpretation Code [facility] Comment on above: The IG parameter is the percentage of metamyelocytes, myelocytes, and promyelocytes. Lymphocytes 2.40 K/mcL Invalid Interpretation Code 0.90 - 4.00 [facility] Lymphocytes/100 leukocytes 18.1 % Invalid Interpretation Code [facility] MCH 33.0 pg Invalid Interpretation Code 26 - 34 pg [facility] MCHC mass conc (RBC) 35.0 g/dL Invalid Interpretation Code 31 - 37 g/dL [facility] MCV 94.3 fL Invalid Interpretation Code 80 - 100 fL [facility] Monocytes 0.85 K/mcL Invalid Interpretation Code 0.30 - 0.90 [facility] Monocytes/100 leukocytes 6.4 % Invalid Interpretation Code [facility] Neutrophils 9.81 K/mcL High 1.70 - 7.00 [facility] Neutrophils/100 WBC Auto (Bld) 74.1 % Invalid Interpretation Code [facility] Nucleated erythrocytes 0.00 K/mcL Invalid Interpretation Code 0.00 - 0.00 [facility] Nucleated erythrocytes/100 erythrocytes 0.0 % Invalid Interpretation Code [facility] Platelet mean volume (PMV) 10.0 fL Invalid Interpretation Code 9 - 15.5 fL [facility] Platelets 242 K/mcL Invalid Interpretation Code 150 - 400 [facility] WBC (Leukocytes) 13.24 K/mcL High 4.50 - 11.00 [facility] CBC w/ Diffon 08-24-2017 Creatinine The following orders were created for panel order CBC w/ Diff. Procedure Abnormality Status --------- ------ CBC Auto Differential[[id number]] Abnormal Final result Please view results for these tests on the individual orders. Invalid Interpretation Code [facility] CT ABDOMEN PELVIS WITH IV CO NTRAST [...] and demonstrated a prominent signal loss on qeb-gu-[id number] images on MRI performed 09/06/2014, compatible with [...] The ovaries probably remain.5. Small left adrenal adenoma.JRS/gesWorkstatio n ID: [id number] by: PONCHO GALAVIZ on ThuAug 24, 2017 3:53:38 PM EDTTranscribed by: RON KELLOGG on ThuAug 24, 2017 4:00:38 PM EDTFinalized by: PONCHO GALAVIZ on ThuAug 24, 2017 4:03:34 PM EDT Normal [facility] Comment on above: Order Comment: Reaso n for exam?:abd painInjury/Trauma or Illness?:Illness/OtherHow long have you had these symptoms (acute/chronic)?:ChronicType of Exam?:Subsequent/Follow-upAdditional signs and symptoms?:chronic pancreatitis CT Abdomen Pelvis With IV Co ntrast Onlyon 08-24-2017 CT Abdomen Pelvis With IV Contrast Only Interface, Rad In [facility] - 08/24/2017 4:06 PM EDT EXAMINATION: CT [...] and demonstrated a prominent signal loss on lay-hr-gavwt images on MRI performed 09/06/2014, compatible with [...] probably remain. 5. Small left adrenal adenoma. [employer]/WiiiWaaa Workstation ID: [id number] Invalid Interpretation Code [facility] CT Abdomen Pelvis With IV Contrast [...] and demonstrated a prominent signal loss on nlc-[id number] images on MRI performed 09/06/2014, compatible with [...] suspicious focal osseous lesions. Invalid Interpretation Code [facility] CT Abdomen Pelvis With IV Contrast [...] probably remain. 5. Small left adrenal adenoma. JRS/WiiiWaaa Workstation ID: [id number] Invalid Interpretation Code [facility] Hepatic Function Panel (LFT) on 08-24-2017 Alanine aminotransferase (ALT) 14 U/L Invalid Interpretation Code 0 - 40 U/L [facility] Albumin 4.7 g/dL Invalid Interpretation Code 3.2 - 5.2 g/dL [facility] Alkaline phosphatase (ALP) 91 U/L Invalid Interpretation Code 40 - 150 U/L [facility] Aspartate aminotransferase (AST) 17 U/L Invalid Interpretation Code 0 - 45 U/L [facility] Bilirubin (conjugated) mg/dL Invalid Interpretation Code 0 - 0.4 mg/dL [facility] Bilirubin (total) mg/dL Invalid Interpretation Code 0 - 1.3 mg/dL [facility] Interpretation and review of laboratory results Normal Invalid Interpretation Code [facility] Protein 7.4 g/dL Invalid Interpretation Code 6 - 8 g/dL [facility] Lactic Acid, Plasmaon 2017 Lactate 1.0 mmol/L Invalid Interpretation Code 0.6 - 2 mmol/L [facility] Light Blue Topon 08-24-2017 Extra Tube Hold for add-ons. Invalid Interpretation Code [facility] Comment on above: Auto resulted. Lipaseon 08-24-2017 Lipase 51 U/L Invalid Interpretation Code 15 - 65 U/L [facility] [place] Topon 08-24-2017 [place] Top Invalid Interpretation Code [facility] [place] Drawon 08-24-2017 Creatinine The following orders were created for panel order [place] Draw. Procedure Abnormality Status --------- ------ Gold Top[[id number]] Final result Light Blue Top[[id number]] Final result [place] Top[[id number]] Final result Please view results for these tests on the individual orders. Invalid Interpretation Code [facility] 08-24-2017 Bilirubin Ql (U) Negative Invalid Interpretation Code Negative [facility] Blood, Urine Negative Invalid Interpretation Code Negative [facility] Interpretation and review of laboratory results Abnormal Invalid Interpretation Code [facility] Nitrite, Urine Negative Invalid Interpretation Code Negative [facility] Squamous Epithelial 5 /hpf High 0 - 4 [facility] Transitional Epithelial <1 Invalid Interpretation Code 0 - 1 /hpf [facility] Urine, bacteria in sediment Rare Abnormal None Seen /hpf [facility] Urine, clarity Hazy Abnormal Clear [facility] Urine, color Yellow Invalid Interpretation Code Colorless, Yellow [facility] Urine, erythrocytes 1 /hpf Invalid Interpretation Code 0 - 3 [facility] Urine, glucose presence Negative Invalid Interpretation Code Negative mg/dL [facility] Urine, ketones presence Negative Invalid Interpretation Code Negative mg/dL [facility] Urine, leukocyte esterase presence Negative Invalid Interpretation Code Negative [facility] Urine, pH 7.0 [pH] Invalid Interpretation Code 5.0 - 7.0 [facility] Urine, protein Negative Invalid Interpretation Code Negative mg/dL [facility] Urine, specific gravity 1.006 1 Invalid Interpretation Code 1.005 - 1.025 [facility] Urine, urobilinogen <2.0 Invalid Interpretation Code <2.0 mg/dL [facility] WBCs, Urine 1 /hpf Invalid Interpretation Code 0 - 5 [facility] Urinalysis Microscopic examinat ion is performed on all urinalysis samples and only positive findings are reported. The test for blood on the chemical analytic portion of urinalysis may also be positive due to hemoglobinuria and myoglobinuria and if red blood cells are present they are quantified by microscopic examination. Invalid Interpretation Code [facility] BMPon 06-09-2017 Anion gap 18 mmol/L Invalid Interpretation Code 10 - 20 mmol/L [facility] Bicarbonate (HCO3) 21 mmol/L Invalid Interpretation Code 21 - 32 mmol/L [facility] BUN/Creatinine Ratio 11.0 mg/mg Invalid Interpretation Code 10.0 - 20.0 [facility] Calcium 10.2 mg/dL Invalid Interpretation Code 8.4 - 10.2 mg/dL [facility] Chloride 102 mmol/L Invalid Interpretation Code 98 - 108 mmol/L [facility] Creatinine 0.73 mg/dL Invalid Interpretation Code 0.4 - 1.1 mg/dL [facility] eGFR (non-black) The eGFR should be u sed for monitoring renal function only and not for medication dosing. Invalid Interpretation Code [facility] eGFR (non-black) 98 mL/min/{1.73_m2} Invalid Interpretation Code >=60 [facility] Glucose 80 mg/dL Invalid Interpretation Code 65 - 99 mg/dL [facility] Potassium 4.3 mmol/L Invalid Interpretation Code 3.5 - 5.1 mmol/L [facility] Sodium 137 mmol/L Invalid Interpretation Code 135 - 145 mmol/L [facility] Urea nitrogen 8 mg/dL Invalid Interpretation Code 8 - 25 mg/dL [facility] CBC Auto Differentialon 04-0 3-2018 Basophils 0.07 K/mcL Invalid Interpretation Code 0.00 - 0.30 [facility] Basophils/100 leukocytes 0.7 % Invalid Interpretation Code [facility] Eosinophils 0.10 K/mcL Invalid Interpretation Code 0.00 - 0.50 [facility] Eosinophils/100 leukocytes 1.0 % Invalid Interpretation Code [facility] Erythrocytes (RBC) 4.75 M/mcL Invalid Interpretation Code 4.00 - 5.20 [facility] Erythrocytes (RBC) 0.00 K/mcL Invalid Interpretation Code 0.00 - 0.00 [facility] Hematocrit (HCT) 46.1 % High 36 - 46 % [facility] Hemoglobin (HGB) 16.1 g/dL High 12 - 16 g/dL [facility] IG Absolute 0.02 K/mcL Invalid Interpretation Code 0.00 - 0.30 [facility] IG Percent 0.20 % Invalid Interpretation Code [facility] Lymphocytes 1.75 K/mcL Invalid Interpretation Code 0.90 - 4.00 [facility] Lymphocytes/100 leukocytes 17.9 % Invalid Interpretation Code [facility] MCH 33.9 pg Invalid Interpretation Code 26 - 34 pg [facility] MCHC 34.9 g/dL Invalid Interpretation Code 31 - 37 g/dL [facility] MCV 97.1 fL Invalid Interpretation Code 80 - 100 fL [facility] Monocytes 0.88 K/mcL Invalid Interpretation Code 0.30 - 0.90 [facility] Monocytes/100 leukocytes 9.0 % Invalid Interpretation Code [facility] Neutrophils 6.98 K/mcL Invalid Interpretation Code 1.70 - 7.00 [facility] Neutrophils/100 leukocytes 71.2 % Invalid Interpretation Code [facility] Nucleated erythrocytes/100 erythrocytes 0.0 % Invalid Interpretation Code [facility] Platelet mean volume (PMV) 10.9 fL Invalid Interpretation Code 9 - 15.5 fL [facility] Platelets 223 K/mcL Invalid Interpretation Code 150 - 400 [facility] RDW-CA 12.8 % Invalid Interpretation Code 11.6 - 14.8 % [facility] WBC (Leukocytes) 9.80 K/mcL Invalid Interpretation Code 4.50 - 11.00 [facility] Interpretation and review of laboratory results Abnormal Invalid Interpretation Code [facility] CBC w/ Diffon 06-09-2017 Creatinine The following orders were created for panel order CBC w/ Diff. Procedure Abnormality Status --------- ------ CBC Auto Differential[[id number]] Abnormal Final result Please view results for these tests on the individual orders. Invalid Interpretation Code [facility] Hepatic Function Panel (LFT) on 06-09-2017 Alanine aminotransferase (ALT) 10 U/L Invalid Interpretation Code 0 - 40 U/L [facility] Albumin 4.4 g/dL Invalid Interpretation Code 3.2 - 5.2 g/dL [facility] Alkaline phosphatase (ALP) 89 U/L Invalid Interpretation Code 40 - 150 U/L [facility] Aspartate aminotransferase (AST) 20 U/L Invalid Interpretation Code 0 - 45 U/L [facility] Bilirubin (conjugated) mg/dL Invalid Interpretation Code 0 - 0.4 mg/dL [facility] Bilirubin (total) mg/dL Invalid Interpretation Code 0 - 1.3 mg/dL [facility] Interpretation and review of laboratory results Normal Invalid Interpretation Code [facility] Protein 7.3 g/dL Invalid Interpretation Code 6 - 8 g/dL [facility] Lipaseon 06-09-2017 Lipase 50 U/L Invalid Interpretation Code 15 - 65 U/L [facility] [place] Drawon 06-09-2017 Creatinine The following orders were created for panel order [place] Draw. Procedure Abnormality Status --------- ------ Urine Container[[id number]] Final result Please view results for these tests on the individual orders. Invalid Interpretation Code [facility] Urinalysison 06-09-2017 Bilirubin, Urine Negative Invalid Interpretation Code Negative [facility] Blood, Urine Negative Invalid Interpretation Code Negative [facility] Calcium Many Abnormal None Seen /hpf [facility] Mucus, Urine Rare Invalid Interpretation Code None Seen, Rare /lpf [facility] Nitrite, Urine Negative Invalid Interpretation Code Negative [facility] RBCs, Urine 1 /hpf Invalid Interpretation Code 0 - 3 [facility] Squamous Epithelial 4 /hpf Invalid Interpretation Code 0 - 4 [facility] Urine, bacteria in sediment None Seen Invalid Interpretation Code None Seen /hpf [facility] Urine, clarity Cloudy Abnormal Clear [facility] Urine, color Yellow Invalid Interpretation Code Colorless, Yellow [facility] Urine, glucose presence Negative Invalid Interpretation Code Negative mg/dL [facility] Urine, ketones presence Trace Abnormal Negative mg/dL [facility] Urine, leukocyte esterase presence Negative Invalid Interpretation Code Negative [facility] Urine, pH 5.0 [pH] Invalid Interpretation Code 5.0 - 7.0 [facility] Urine, protein Negative Invalid Interpretation Code Negative mg/dL [facility] Urine, specific gravity 1.024 1 Invalid Interpretation Code 1.005 - 1.025 [facility] Urine, urobilinogen 2.0 mg/dL Abnormal <2.0 [facility] WBCs, Urine 1 /hpf Invalid Interpretation Code 0 - 5 [facility] Urinalysis Microscopic examinat ion is performed on all urinalysis samples and only positive findings are reported. The test for blood on the chemical analytic portion of urinalysis may also be positive due to hemoglobinuria and myoglobinuria and if red blood cells are present they are quantified by microscopic examination. Invalid Interpretation Code [facility] Urine Containeron 06-09-2017 Urine Container Invalid Interpretation Code [facility] CBCon 05-15-2017 Erythrocytes (RBC) 3.76 M/mcL Low 4.00 - 5.20 [facility] Erythrocytes (RBC) 0.00 K/mcL Invalid Interpretation Code 0.00 - 0.00 [facility] Hematocrit (HCT) 37.1 % Invalid Interpretation Code 36 - 46 % [facility] Hemoglobin (HGB) 12.4 g/dL Invalid Interpretation Code 12 - 16 g/dL [facility] MCH 33.0 pg Invalid Interpretation Code 26 - 34 pg [facility] MCHC 33.4 g/dL Invalid Interpretation Code 31 - 37 g/dL [facility] MCV 98.7 fL Invalid Interpretation Code 80 - 100 fL [facility] Nucleated erythrocytes/100 erythrocytes 0.0 % Invalid Interpretation Code [facility] Platelet mean volume (PMV) 9.9 fL Invalid Interpretation Code 9 - 15.5 fL [facility] Platelets 197 K/mcL Invalid Interpretation Code 150 - 400 [facility] RDW-CA 12.6 % Invalid Interpretation Code 11.6 - 14.8 % [facility] WBC (Leukocytes) 7.55 K/mcL Invalid Interpretation Code 4.50 - 11.00 [facility] Comprehensive Metabolic Pane nimesh 05-15-2017 Alanine aminotransferase (ALT) 9 U/L Invalid Interpretation Code 0 - 40 U/L [facility] Albumin 3.3 g/dL Invalid Interpretation Code 3.2 - 5.2 g/dL [facility] Alkaline phosphatase (ALP) 73 U/L Invalid Interpretation Code 40 - 150 U/L [facility] Anion gap 15 mmol/L Invalid Interpretation Code 10 - 20 mmol/L [facility] Aspartate aminotransferase (AST) 13 U/L Invalid Interpretation Code 0 - 45 U/L [facility] Bicarbonate (HCO3) 23 mmol/L Invalid Interpretation Code 21 - 32 mmol/L [facility] Bilirubin (total) 0.2 mg/dL Invalid Interpretation Code 0 - 1.3 mg/dL [facility] BUN/Creatinine Ratio 9.4 mg/mg Low 10.0 - 20.0 [facility] Calcium 8.4 mg/dL Invalid Interpretation Code 8.4 - 10.2 mg/dL [facility] Chloride 108 mmol/L Invalid Interpretation Code 98 - 108 mmol/L [facility] Creatinine 0.64 mg/dL Invalid Interpretation Code 0.4 - 1.1 mg/dL [facility] eGFR (non-black) The eGFR should be u sed for monitoring renal function only and not for medication dosing. Invalid Interpretation Code [facility] eGFR (non-black) 107 mL/min/{1.73_m2} Invalid Interpretation Code >=60 [facility] Glucose 91 mg/dL Invalid Interpretation Code 65 - 99 mg/dL [facility] Potassium 4.0 mmol/L Invalid Interpretation Code 3.5 - 5.1 mmol/L [facility] Protein 5.3 g/dL Low 6 - 8 g/dL [facility] Sodium 142 mmol/L Invalid Interpretation Code 135 - 145 mmol/L [facility] Urea nitrogen 6 mg/dL Low 8 - 25 mg/dL [facility] Lipaseon 05-15-2017 Interpretation and review of laboratory results Normal Invalid Interpretation Code [facility] Lipase 31 U/L Invalid Interpretation Code 15 - 65 U/L [facility] Lipid Panelon 05-15-2017 Cholesterol 193 mg/dL Invalid Interpretation Code 100 - 199 mg/dL [facility] Cholesterol to HDL Ratio 7.1 {ratio} Invalid Interpretation Code [facility] HDL Cholesterol 27 mg/dL Low 40 - 59 mg/dL [facility] HDL Cholesterol 166 mg/dL Invalid Interpretation Code [facility] Interpretation and review of laboratory results Abnormal Invalid Interpretation Code [facility] LDL Cholesterol 108 mg/dL Invalid Interpretation Code 10 - 130 mg/dL [facility] Triglyceride 291 mg/dL High 30 - 150 mg/dL [facility] BMPon 05-14-2017 Anion gap 18 mmol/L Invalid Interpretation Code 10 - 20 mmol/L [facility] Bicarbonate (HCO3) 25 mmol/L Invalid Interpretation Code 21 - 32 mmol/L [facility] BUN/Creatinine Ratio 11.8 mg/mg Invalid Interpretation Code 10.0 - 20.0 [facility] Calcium 10.7 mg/dL High 8.4 - 10.2 mg/dL [facility] Chloride 102 mmol/L Invalid Interpretation Code 98 - 108 mmol/L [facility] Creatinine 0.68 mg/dL Invalid Interpretation Code 0.4 - 1.1 mg/dL [facility] eGFR (non-black) The eGFR should be u sed for monitoring renal function only and not for medication dosing. Invalid Interpretation Code [facility] eGFR (non-black) 105 mL/min/{1.73_m2} Invalid Interpretation Code >=60 [facility] Glucose 86 mg/dL Invalid Interpretation Code 65 - 99 mg/dL [facility] Potassium 4.0 mmol/L Invalid Interpretation Code 3.5 - 5.1 mmol/L [facility] Sodium 141 mmol/L Invalid Interpretation Code 135 - 145 mmol/L [facility] Urea nitrogen 8 mg/dL Invalid Interpretation Code 8 - 25 mg/dL [facility] CBC Auto Differentialon 03-0 Basophils 0.09 K/mcL Invalid Interpretation Code 0.00 - 0.30 [facility] Basophils/100 leukocytes 0.8 % Invalid Interpretation Code [facility] Eosinophils 0.08 K/mcL Invalid Interpretation Code 0.00 - 0.50 [facility] Eosinophils/100 leukocytes 0.7 % Invalid Interpretation Code [facility] Erythrocytes (RBC) 0.00 K/mcL Invalid Interpretation Code 0.00 - 0.00 [facility] Erythrocytes (RBC) 4.96 M/mcL Invalid Interpretation Code 4.00 - 5.20 [facility] Hematocrit (HCT) 48.5 % High 36 - 46 % [facility] Hemoglobin (HGB) 16.6 g/dL High 12 - 16 g/dL [facility] IG Absolute 0.04 K/mcL Invalid Interpretation Code 0.00 - 0.30 [facility] IG Percent 0.40 % Invalid Interpretation Code [facility] Interpretation and review of laboratory results Abnormal Invalid Interpretation Code [facility] Lymphocytes 1.89 K/mcL Invalid Interpretation Code 0.90 - 4.00 [facility] Lymphocytes/100 leukocytes 17.7 % Invalid Interpretation Code [facility] MCH 33.5 pg Invalid Interpretation Code 26 - 34 pg [facility] MCHC 34.2 g/dL Invalid Interpretation Code 31 - 37 g/dL [facility] MCV 97.8 fL Invalid Interpretation Code 80 - 100 fL [facility] Monocytes 0.74 K/mcL Invalid Interpretation Code 0.30 - 0.90 [facility] Monocytes/100 leukocytes 6.9 % Invalid Interpretation Code [facility] Neutrophils 7.86 K/mcL High 1.70 - 7.00 [facility] Neutrophils/100 leukocytes 73.5 % Invalid Interpretation Code [facility] Nucleated erythrocytes/100 erythrocytes 0.0 % Invalid Interpretation Code [facility] Platelet mean volume (PMV) 9.8 fL Invalid Interpretation Code 9 - 15.5 fL [facility] Platelets 275 K/mcL Invalid Interpretation Code 150 - 400 [facility] RDW-CA 12.8 % Invalid Interpretation Code 11.6 - 14.8 % [facility] WBC (Leukocytes) 10.70 K/mcL Invalid Interpretation Code 4.50 - 11.00 [facility] CBC w/ Diffon 05-14-2017 Creatinine The following orders were created for panel order CBC w/ Diff. Procedure Abnormality Status --------- ------ CBC Auto Differential[[id number]] Abnormal Final result Please view results for these tests on the individual orders. Invalid Interpretation Code [facility] CT ABDOMEN PELVIS WITH IV CO NTRAST [...] appendix in the left lower pelvis.Workstation ID: [id number] by: ERROL ANN on ThuMay 14, 2017 4:08:10 PM ESTTranscribed by: SETHERROL Espinal on ThuMay 14, 2017 4:08:10 PM ESTFinalized by: ERROL ANN on ThuMay 14, 2017 4:08:10 PM EST Normal [facility] Comment on above: Order Comment: Reaso [...] at L1-L2 and L4-L5. Invalid Interpretation Code [facility] CT Abdomen Pelvis With IV Contrast Only Interface, Rad In Cell[employer] Speechq - 05/14/2017 4:10 PM EST EXAMINATION: [...] in the left lower pelvis. Workstation ID: [id number] Invalid Interpretation Code [employer] [facility] CT Abdomen Pelvis With IV Contrast [...] in the left lower pelvis. Workstation ID: [id number] Invalid Interpretation Code [employer] [facility] Ruff Topon 05-14-2017 Extra Tube Hold for add-ons. Invalid Interpretation Code [facility] Hepatic Function Panel (LFT) on 05-14-2017 Alanine aminotransferase (ALT) 13 U/L Invalid Interpretation Code 0 - 40 U/L [facility] Albumin 4.8 g/dL Invalid Interpretation Code 3.2 - 5.2 g/dL [facility] Alkaline phosphatase (ALP) 102 U/L Invalid Interpretation Code 40 - 150 U/L [facility] Aspartate aminotransferase (AST) 20 U/L Invalid Interpretation Code 0 - 45 U/L [facility] Bilirubin (conjugated) mg/dL Invalid Interpretation Code 0 - 0.4 mg/dL [facility] Bilirubin (total) 0.2 mg/dL Invalid Interpretation Code 0 - 1.3 mg/dL [facility] Interpretation and review of laboratory results Normal Invalid Interpretation Code [facility] Protein 7.9 g/dL Invalid Interpretation Code 6 - 8 g/dL [facility] Lipaseon 05-14-2017 Lipase 137 U/L High 15 - 65 U/L [facility] [place] Topon 05-14-2017 [place] Top Invalid Interpretation Code [facility] Bradford Drawon 05-14-2017 Creatinine The following orders were created for panel order Bradford Draw. Procedure Abnormality Status --------- ------ Gold Top[[id number]] Final result Light Blue Top[[id number]] Final result Ruff Top[[id number]] Final result [place] Top[[id number]] Final result Please view results for these tests on the individual orders. Invalid Interpretation Code [facility] 05-[facility]2017 Bilirubin, Urine Negative Invalid Interpretation Code Negative [facility] Blood, Urine Negative Invalid Interpretation Code Negative [facility] Interpretation and review of laboratory results Abnormal Invalid Interpretation Code [facility] Mucus, Urine Rare Invalid Interpretation Code None Seen, Rare /lpf [facility] Nitrite, Urine Negative Invalid Interpretation Code Negative [facility] RBCs, Urine 2 /hpf Invalid Interpretation Code 0 - 3 [facility] Squamous Epithelial 3 /hpf Invalid Interpretation Code 0 - 4 [facility] Urine, bacteria in sediment Rare Abnormal None Seen /hpf [facility] Urine, clarity Clear Invalid Interpretation Code Clear [facility] Urine, color Yellow Invalid Interpretation Code Colorless, Yellow [facility] Urine, glucose presence Negative Invalid Interpretation Code Negative mg/dL [facility] Urine, ketones presence Negative Invalid Interpretation Code Negative mg/dL [facility] Urine, leukocyte esterase presence Negative Invalid Interpretation Code Negative [facility] Urine, pH 5.0 [pH] Invalid Interpretation Code 5.0 - 7.0 [facility] Urine, protein Negative Invalid Interpretation Code Negative mg/dL [facility] Urine, specific gravity 1.006 1 Invalid Interpretation Code 1.005 - 1.025 [facility] Urine, urobilinogen <2.0 Invalid Interpretation Code <2.0 mg/dL [facility] WBCs, Urine 1 /hpf Invalid Interpretation Code 0 - 5 [facility] Urinalysis Microscopic examinat ion is performed on all urinalysis samples and only positive findings are reported. The test for blood on the chemical analytic portion of urinalysis may also be positive due to hemoglobinuria and myoglobinuria and if red blood cells are present they are quantified by microscopic examination. Invalid Interpretation Code [facility] Vital Signs Date Time Vital Sign Value Performing Clinician Facility 09-08-2023 09:00-0400 Diastolic blood pressure 54 mm[Hg] Sabrina Dee MD, MPH Work Phone: [facility] 09-08-2023 09:00-0400 Heart rate 83 /min Sabrina Dee MD, MPH Work Phone: [facility] 09-08-2023 09:00-0400 Respiratory rate 13 /min Sabrina Dee MD, MPH Work Phone: [facility] 09-08-2023 09:00-0400 SaO2% (BldA) [Mass fraction] 95 % Sabrina Dee MD, MPH Work Phone: [facility] 09-08-2023 09:00-0400 Systolic blood pressure 94 mm[Hg] Sabrina Dee MD, MPH Work Phone: [facility] 09-08-2023 08:04-0400 Body temperature 97.7 [degF] Sabrina Dee MD, MPH Work Phone: [facility] 09-08-2023 06:43-0400 Body height 157.5 cm Sabrina Dee MD, MPH Work Phone: [facility] 05-11-2023 09:01-0500 Body height 157.5 cm Sabrina Dee MD, MPH Work Phone: [facility] 05-11-2023 09:01-0500 Body mass index (BMI) [Ratio] 21 kg/m2 Sabrina Dee MD, MPH Work Phone: [facility] 05-11-2023 09:01-0500 Body weight 52.07 kg Sabrina Dee MD, MPH Work Phone: [facility] 05-11-2023 09:01-0500 Diastolic blood pressure 48 mm[Hg] Sabrina Dee MD, MPH Work Phone: [facility] 05-11-2023 09:01-0500 Heart rate 107 /min Sabrina Dee MD, MPH Work Phone: [facility] 05-11-2023 09:01-0500 SaO2% (BldA) [Mass fraction] 97 % Sabrina Dee MD, MPH Work Phone: [facility] 05-11-2023 09:01-0500 Systolic blood pressure 110 mm[Hg] Sabrina Dee MD, MPH Work Phone: [facility] 04-18-2023 17:39-0500 Diastolic blood pressure 79 mm[Hg] [facility] 04-18-2023 17:39-0500 Heart rate 114 /min [facility] 04-18-2023 17:39-0500 Respiratory rate 16 /min [facility] 04-18-2023 17:39-0500 SaO2% (BldA) [Mass fraction] 98 % [facility] 04-18-2023 17:39-0500 Systolic blood pressure 168 mm[Hg] [facility] 04-18-2023 15:29-0500 Body height 157.48 cm [facility] 04-18-2023 15:29-0500 Body temperature 99.3 [degF] [facility] 04-18-2023 15:29-0500 Body weight 51.25 kg [facility] 04-11-2023 23:50-0500 Diastolic blood pressure 82 mm[Hg] [facility] 04-11-2023 23:50-0500 Heart rate 106 /min [facility] 04-11-2023 23:50-0500 SaO2% (BldA) [Mass fraction] 97 % [facility] 04-11-2023 23:50-0500 Systolic blood pressure 151 mm[Hg] [facility] 04-11-2023 22:25-0500 Respiratory rate 18 /min [facility] 04-11-2023 21:20-0500 Body height 157.48 cm [facility] 04-11-2023 21:20-0500 Body temperature 97.2 [degF] [facility] 04-11-2023 21:20-0500 Body weight 52 kg [facility] 04-02-2023 19:20-0500 Diastolic blood pressure 74 mm[Hg] [facility] 04-02-2023 19:20-0500 Heart rate 91 /min [facility] 04-02-2023 19:20-0500 Respiratory rate 18 /min [facility] 04-02-2023 19:20-0500 SaO2% (BldA) [Mass fraction] 96 % [facility] 04-02-2023 19:20-0500 Systolic blood pressure 137 mm[Hg] [facility] 04-02-2023 13:45-0500 Body height 157.48 cm [facility] 04-02-2023 13:45-0500 Body temperature 97.6 [degF] [facility] 04-02-2023 13:45-0500 Body weight 54 kg [facility] 11-09-2022 16:30-0400 Diastolic blood pressure 81 mm[Hg] [facility] 11-09-2022 16:30-0400 Heart rate 78 /min [facility] 11-09-2022 16:30-0400 Respiratory rate 18 /min [facility] 11-09-2022 16:30-0400 SaO2% (BldA) [Mass fraction] 99 % [facility] 11-09-2022 16:30-0400 Systolic blood pressure 141 mm[Hg] [facility] 11-09-2022 13:47-0400 Body height 160.02 cm [facility] 11-09-2022 13:47-0400 Body temperature 98.2 [degF] [facility] 11-09-2022 13:47-0400 Body weight 54.2 kg [facility] 08-12-2022 13:15-0400 Diastolic blood pressure 68 mm[Hg] Sabrina Dee MD, MPH Work Phone: [facility] 08-12-2022 13:15-0400 Heart rate 67 /min Sabrina Dee MD, MPH Work Phone: [facility] 08-12-2022 13:15-0400 Respiratory rate 22 /min Sabrina Dee MD, MPH Work Phone: [facility] 08-12-2022 13:15-0400 SaO2% (BldA) [Mass fraction] 99 % Sabrina Dee MD, MPH Work Phone: [facility] 08-12-2022 13:15-0400 Systolic blood pressure 142 mm[Hg] Sabrina Dee MD, MPH Work Phone: [facility] 08-12-2022 11:45-0400 Body temperature 97.81 [degF] Sabrina Dee MD, MPH Work Phone: [facility] 08-12-2022 10:34-0400 Body height 157.5 cm Sabrina Dee MD, MPH Work Phone: [facility] 06-16-2022 10:52-0400 Body mass index (BMI) [Ratio] 23.41 kg/m2 Sabrina Dee MD, MPH Work Phone: [facility] 06-16-2022 10:52-0400 Body weight 58.06 kg Sabrina Dee MD, MPH Work Phone: [facility] 06-16-2022 10:52-0400 Diastolic blood pressure 68 mm[Hg] Sabrina Dee MD, MPH Work Phone: [facility] 06-16-2022 10:52-0400 Heart rate 83 /min Sabrina Dee MD, MPH Work Phone: [facility] 06-16-2022 10:52-0400 SaO2% (BldA) [Mass fraction] 98 % Sabrina Dee MD, MPH Work Phone: [facility] 06-16-2022 10:52-0400 Systolic blood pressure 122 mm[Hg] Sabrina Dee MD, MPH Work Phone: [facility] 03-22-2022 16:51-0500 Diastolic blood pressure 61 mm[Hg] [facility] 03-22-2022 16:51-0500 Heart rate 98 /min [facility] 03-22-2022 16:51-0500 Respiratory rate 20 /min [facility] 03-22-2022 16:51-0500 SaO2% (BldA) [Mass fraction] 98 % [facility] 03-22-2022 16:51-0500 Systolic blood pressure 149 mm[Hg] [facility] 03-22-2022 14:59-0500 Body height 157.48 cm [facility] 03-22-2022 14:59-0500 Body temperature 97.9 [degF] [facility] 03-22-2022 14:59-0500 Body weight 56 kg [facility] 12-16-2021 11:53-0400 Body height 157.5 cm Sabrina Dee MD, MPH Work Phone: [facility] 12-16-2021 11:53-0400 Body mass index (BMI) [Ratio] 22.5 kg/m2 Sabrina Dee MD, MPH Work Phone: [facility] 12-16-2021 11:53-0400 Body weight 55.79 kg Sabrina Dee MD, MPH Work Phone: [facility] 12-16-2021 11:53-0400 Diastolic blood pressure 72 mm[Hg] Sabrina Dee MD, MPH Work Phone: [facility] 12-16-2021 11:53-0400 Heart rate 80 /min Sabrina Dee MD, MPH Work Phone: [facility] 12-16-2021 11:53-0400 SaO2% (BldA) [Mass fraction] 98 % Sabrina Dee MD, MPH Work Phone: [facility] 12-16-2021 11:53-0400 Systolic blood pressure 118 mm[Hg] Sabrina Dee MD, MPH Work Phone: [facility] 10-09-2021 20:00-0400 Body temperature 98.3 [degF] [facility] 10-09-2021 20:00-0400 Diastolic blood pressure 68 mm[Hg] [facility] 10-09-2021 20:00-0400 Heart rate 86 /min [facility] 10-09-2021 20:00-0400 Respiratory rate 20 /min [facility] 10-09-2021 20:00-0400 SaO2% (BldA) [Mass fraction] 100 % [facility] 10-09-2021 20:00-0400 Systolic blood pressure 110 mm[Hg] [facility] 10-09-2021 14:19-0400 Body height 157.48 cm [facility] 10-09-2021 14:19-0400 Body weight 56.69 kg [facility] 10-04-2021 19:00-0400 Diastolic blood pressure 66 mm[Hg] [facility] 10-04-2021 19:00-0400 Heart rate 72 /min [facility] 10-04-2021 19:00-0400 Respiratory rate 16 /min [facility] 10-04-2021 19:00-0400 SaO2% (BldA) [Mass fraction] 96 % [facility] 10-04-2021 19:00-0400 Systolic blood pressure 110 mm[Hg] [facility] 10-04-2021 15:16-0400 Body temperature 97.9 [degF] [facility] 10-04-2021 15:15-0400 Body height 157.48 cm [facility] 10-04-2021 15:15-0400 Body weight 54.5 kg [facility] 09-25-2021 19:58-0400 Heart rate 82 /min [facility] 09-25-2021 18:04-0400 Body temperature 98.1 [degF] [facility] 09-25-2021 18:00-0400 Body height 157.48 cm [facility] 09-25-2021 18:00-0400 Body weight 55.5 kg [facility] 09-25-2021 18:00-0400 Diastolic blood pressure 107 mm[Hg] [facility] 09-25-2021 18:00-0400 Respiratory rate 18 /min [facility] 09-25-2021 18:00-0400 SaO2% (BldA) [Mass fraction] 98 % [facility] 09-25-2021 18:00-0400 Systolic blood pressure 141 mm[Hg] [facility] 08-11-2021 18:12-0400 Heart rate 86 /min [facility] 08-11-2021 18:00-0400 Diastolic blood pressure 69 mm[Hg] [facility] 08-11-2021 18:00-0400 Respiratory rate 20 /min [facility] 08-11-2021 18:00-0400 SaO2% (BldA) [Mass fraction] 98 % [facility] 08-11-2021 18:00-0400 Systolic blood pressure 114 mm[Hg] [facility] 08-11-2021 16:06-0400 Body height 170.18 cm [facility] 08-11-2021 16:06-0400 Body mass index (BMI) [Ratio] 19.6 kg/m2 [facility] 08-11-2021 16:06-0400 Body temperature 97.9 [degF] [facility] 08-11-2021 16:06-0400 Body weight 57 kg [facility] 03-19-2021 14:30-0500 Body height 157.48 cm Marya Ginty Other [employer] [facility] [employer] Other 03-19-2021 14:30-0500 Body mass index (BMI) [Ratio] 24.69 kg/m2 Marya Ginty Other [employer] [facility] [employer] Other 03-19-2021 14:30-0500 Body temperature 96 [degF] Marya Ginty Other [employer] Other 03-19-2021 14:30-0500 Body weight 61.24 kg Marya Ginty Other [employer] Other 03-19-2021 14:30-0500 Respiratory rate 63 /min Marya Ginty Other [employer] Other 03-19-2021 14:30-0500 SaO2% (BldA) [Mass fraction] 97 % Marya Gillana Other [employer] Other 03-26-2020 21:05-0500 Pulse Oximetry 100 % [facility] [place] 03-26-2020 21:01-0500 BP Diastolic 68 mm[Hg] [facility] , [place] 03-26-2020 21:01-0500 BP Systolic 152 mm[Hg] [facility] [place] 03-26-2020 17:32-0500 BMI (Body Mass Index) 22.86 kg/m2 [facility], [place] 03-26-2020 17:32-0500 Body weight 56.7 kg [place], [place] 03-26-2020 17:32-0500 Height 157.5 cm [place], [place] 03-26-2020 17:32-0500 Pulse (Heart Rate) 90 /min [facility] [place] 03-26-2020 17:32-0500 Respiratory Rate 18 /min [facility] [place] 03-26-2020 12:39-0500 Body Temperature 98.71 [degF] [facility] [place] 08-25-2019 08:30-0400 Body Temperature 98.01 [degF] [facility] [place] 08-25-2019 08:30-0400 BP Diastolic 75 mm[Hg] Rajeev [facility] , [place] 08-25-2019 08:30-0400 BP Systolic 117 mm[Hg] Rajeev [facility] [place] 08-25-2019 08:30-0400 Pulse (Heart Rate) 84 /min Rajeev [facility] [place] 08-25-2019 08:30-0400 Pulse Oximetry 97 % Rajeev [facility] [place] 08-25-2019 08:30-0400 Respiratory Rate 16 /min [facility] [place] 08-25-2019 05:30-0400 BMI (Body Mass Index) 25.88 kg/m2 Rajeev [facility], [place] 08-25-2019 05:30-0400 Body weight 64.18 kg Rajeev [place] 08-22-2019 16:00-0400 Height 157.5 cm Rajeev [place] 03-04-2018 13:09-0500 BP Diastolic 69 mm[Hg] [facility] 03-04-2018 13:09-0500 BP Systolic 108 mm[Hg] [facility] 03-04-2018 13:09-0500 Pulse (Heart Rate) 79 /min [facility] 03-04-2018 13:09-0500 Pulse Oximetry 99 % [facility] 03-04-2018 13:09-0500 Respiratory Rate 16 /min [facility] 03-04-2018 11:01-0500 BMI (Body Mass Index) 22.86 kg/m2 [facility] 03-04-2018 11:01-0500 Body Temperature 98.6 [degF] [facility] 03-04-2018 11:01-0500 Height 157.5 cm [facility] 03-04-2018 11:01-0500 Weight 56.7 kg [facility] 08-24-2017 20:58-0400 BP Diastolic 64 mm[Hg] [facility] 08-24-2017 20:58-0400 BP Systolic 126 mm[Hg] [facility] 08-24-2017 20:58-0400 Pulse (Heart Rate) 67 /min [facility] 08-24-2017 20:58-0400 Pulse Oximetry 98 % [facility] 08-24-2017 20:58-0400 Respiratory Rate 18 /min [facility] 08-24-2017 13:41-0400 BMI (Body Mass Index) 21.58 kg/m2 [facility] 08-24-2017 13:41-0400 Body Temperature 98.29 [degF] [facility] 08-24-2017 13:41-0400 Height 157.5 cm [facility] 08-24-2017 13:41-0400 Weight 53.52 kg [facility] 06-09-2017 09:32-0400 BP Diastolic 73 mm[Hg] Joana [facility] 06-09-2017 09:32-0400 BP Systolic 106 mm[Hg] [facility] 06-09-2017 09:32-0400 Pulse (Heart Rate) 86 /min [facility] 06-09-2017 09:32-0400 Pulse Oximetry 99 % [facility] 06-09-2017 09:32-0400 Respiratory Rate 16 /min [facility] 06-09-2017 07:20-0400 BMI (Body Mass Index) 21.87 kg/m2 [facility] 06-09-2017 07:20-0400 Body Temperature 98.4 [degF] [facility] 06-09-2017 07:20-0400 Height 157.5 cm [facility] 06-09-2017 07:20-0400 Weight 54.23 kg [facility] 05-15-2017 08:11-0500 Body Temperature 98.01 [degF] David Gibson [facility] 05-15-2017 08:11-0500 BP Diastolic 69 mm[Hg] David Paige [facility] 05-15-2017 08:11-0500 BP Systolic 116 mm[Hg] [facility] 05-15-2017 08:11-0500 Pulse (Heart Rate) 76 /min David Paige [facility] 05-15-2017 08:11-0500 Pulse Oximetry 95 % David Paige [facility] 05-15-2017 08:11-0500 Respiratory Rate 15 /min David Paige [facility] 05-14-2017 12:58-0500 BMI (Body Mass Index) 21.95 kg/m2 David Paige [facility] 05-14-2017 12:58-0500 Height 157.5 cm David Paige [facility] 05-14-2017 12:58-0500 Weight 54.43 kg David Gibson [facility] Encounters Encounter Date Encounter Type Care Provider Facility Start: 09-29-2023 End: 09-29-2023 Emergency department patient visit [facility] Start: 09-08-2023 End: 09-08-2023 Subsequent hospital visit by physician Sabrina Dee MD, MPH Work Phone: [facility] Start: 09-08-2023 ambulatory SABRINA DEE Fa cility:[facility] Start: 05-22-2023 Telephone encounter [facility] Start: 05-11-2023 Chart abstracting Scanning Pro vider External [facility] Start: 05-11-2023 End: 05-11-2023 Office outpatient visit 40 minutes Sabrina Dee MD, MPH Work Phone: [facility] [place] Comment on above: 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); Encounter for screening for malignant neoplasm of colon; Other osteoporosis without current pathological fracture; Epigastric pain; Smoking; Gastroesophageal reflux disease without esophagitis Start: 05-11-2023 ambulatory SELF SELF Facility:[facility] Start: 04-18-2023 End: 04-18-2023 Emergency department patient visit [facility] Work Phone: Start: 04-16-2023 Telephone encounter [facility] Start: 04-11-2023 End: 04-12-2023 Emergency department patient visit [facility] Work Phone: Start: 04-11-2023 End: 04-11-2023 Emergency department patient visit [facility] Start: 04-11-2023 End: 04-12-2023 Emergency department patient visit TABITHA NEWELL [facility] Start: 04-02-2023 End: 04-02-2023 Emergency department patient visit [facility] Work Phone: Start: 03-27-2023 End: 03-28-2023 Emergency department patient visit VIC [facility] Start: 03-27-2023 End: 03-27-2023 Emergency department patient visit [facility] Start: 11-09-2022 End: 11-09-2022 Emergency department patient visit [facility] Work Phone: Start: 08-12-2022 End: 08-12-2022 Subsequent hospital visit by physician Sabrina Dee MD, MPH Work Phone: [facility] Start: 06-16-2022 End: 06-16-2022 Office outpatient visit 40 minutes Sabrina Dee MD, MPH Work Phone: [facility] [facility] [place] Comment on above: Osteoporosis without current pathological fracture, unspecified osteoporosis type (Primary Dx); Alcohol-induced chronic pancreatitis Start: 06-13-2022 End: 06-13-2022 ambulatory ARIC ARCINEIGA . Facility:H1 Start: 03-29-2022 End: 03-29-2022 ambulatory ELENITA DIAB . Facility:[facility]1 Start: 03-22-2022 End: 03-22-2022 Emergency department patient visit [facility] Work Phone: Start: 03-19-2022 End: 03-19-2022 ambulatory MONIK PARKINSON . Facility:H1 Start: 01-28-2022 End: 01-28-2022 Subsequent hospital visit by physician Sabrina Dee MD, MPH Work Phone: [facility] Start: 01-27-2022 End: 01-27-2022 Subsequent hospital visit by physician Sabrina Dee MD, MPH Work Phone: [facility] [place] Comment on above: Arrived Start: 01-15-2022 End: 01-15-[address] HELLEN KITCHEN . Facility:[facility]1 Start: 12-16-2021 End: 12-16-2021 Office outpatient visit 25 minutes Sabrina Dee MD, MPH Work Phone: [facility] [place] Comment on above: Recurrent acute panc reatitis (Primary Dx); History of smoking 25-50 pack years; Alcohol-induced chronic pancreatitis; Epigastric pain; Encounter for screening colonoscopy Start: 12-13-2021 End: 12-14-2021 ambulatory NICK COY Facility:H1 Start: 12-05-2021 End: 12-05-[address] RAJEEV KELLOGG Facility:H1 Start: 10-11-2021 End: 10-12-[address] RAJEEV KELLOGG Facility:H1 Start: 10-04-2021 End: 10-04-2021 Emergency department patient visit [facility] Start: 09-30-2021 End: 09-30-2021 ambulatory NAT MAXWELL . Facility:H1 Start: 09-25-2021 End: 09-25-2021 Emergency department patient visit [facility] Start: 09-17-2021 End: 09-17-[address] RAJEEV KELLOGG Facility:H1 Start: 08-26-2021 End: 08-26-2021 ambulatory NICK COY Facility:H1 Start: 08-22-2021 End: 08-22-[address] TRI HANSON Facility:H1 Start: 08-13-2021 End: 08-13-2021 ambulatory AGUSTIN MADRIGAL Facility:H1 Start: 08-11-2021 End: 08-11-2021 Emergency department patient visit [facility] Start: 07-31-2021 End: 07-31-2021 ambulatory YANNI FRASER Facility:H1 Start: 07-19-2021 End: 07-19-2021 ambulatory LYNNE PERDOMO Facility:H1 Start: 03-19-2021 End: 03-19-2021 ambulatory Marya Escotoy Other [facility] Other Start: 03-19-2021 Office outpatient visit 15 minutes Marya Almonte [facility] Start: 05-22-2020 End: 05-22-2020 Orders Only Izabela Grant Work Phone: [facility] Start: 03-26-2020 End: 03-26-2020 Emergency department patient visit [facility] ED Comment on above: Acute biliary pancre atitis, unspecified complication status (Primary Dx) Start: 08-22-2019 End: 08-25-2019 Evaluation and management of inpatient Rajeev Rudy Cantor Work Phone: [facility] Comment on above: Acute pancreatitis, unspecified complication status, unspecified pancreatitis type (Primary Dx); Pain of upper abdomen Start: 03-08-2018 End: 03-09-2018 Evaluation and management of inpatient [facility] Start: 03-04-2018 End: 03-04-2018 Patient encounter procedure [facility] Start: 03-04-2018 End: 03-04-2018 Emergency department patient visit Keerthi Nguyen Work Phone: [phone] [place] [address] Emergency Department Comment on above: Acute on chronic see creatitis (HCC) (Primary Dx) Start: 08-24-2017 End: 08-24-2017 Emergency department patient visit [facility] Start: 08-24-2017 End: 08-24-2017 Emergency department patient visit Errol Walton Work Phone: [phone] [place] [address] Emergency Department Start: 06-09-2017 End: 06-09-2017 Emergency department patient visit [facility] Start: 06-09-2017 End: 06-09-2017 Emergency department patient visit Joana Mohsen Rosalesle Work Phone: [phone] [place] [address] Emergency Department Start: 05-14-2017 End: 05-15-2017 Patient encounter procedure [facility] Start: 05-14-2017 End: 05-15-2017 Emergency department patient visit David Gibson Work Phone: [phone] [place] [address] Medical Observation Procedures Date Procedure Procedure Detail Performing Clinician Start: 09-08-2023 UPPER GALE Dee MD, MPH Work Phone: Start: 04-18-2023 CT of abdomen and pe lvis without contrast Start: 04-11-2023 Computed tomography of abdomen and pelvis with contrast Start: 04-02-2023 Computed tomography of abdomen and pelvis with contrast Start: 11-09-2022 Computed tomography of abdomen and pelvis with contrast Start: 08-12-2022 UPPER EUS Sabrina Dee MD, MPH Work Phone: Start: 01-28-2022 UPPER GALE Dee MD, MPH Work Phone: Start: 01-27-2022 [...] microscopy Erasto Dickinson Work Phone: Start: 08-25-2019 Assay of lipase Rajeev Cantor Work Phone: Start: 08-25-2019 Blood count complete auto&auto difrntl wbc Rajeev Cantor Work Phone: Start: 08-24-2019 Assay of lipase Rajeev Cantor Work Phone: Start: 08-24-2019 Blood count complete auto&auto difrntl wbc Rajeev Cantor Work Phone: Start: 08-23-2019 Assay of lipase Rajeev Cantor Work Phone: Start: 08-23-2019 Blood count complete auto&auto difrntl wbc Rajeev Cantor Work Phone: Start: 08-23-2019 Comprehensive metabo lic panel Rajeev Cantor Work Phone: Start: 08-22-2019 Urnls dip stick/tabl et reagent auto microscopy Rajeev Cantor Work Phone: Start: 08-22-2019 Assay of lactate Rajeev Cantor Work Phone: Start: 08-22-2019 Assay of lipase Rajeev Cantor Work Phone: Start: 08-22-2019 Blood count complete auto&auto difrntl wbc Rajeev Cantor Work Phone: Start: 08-22-2019 Comprehensive metabo lic panel Rajeev Cantor Work Phone: Start: 03-04-2018 End: 03-04-2018 Urinalysis Konstantin obrien Work Phone: Start: 03-04-2018 End: 03-04-2018 Basic metabolic 1998 panel - Serum or Plasma Konstantin Connolly Work Phone: Start: 03-04-2018 End: 03-04-2018 Complete blood count with white cell differential, automated Konstantin Horner Cathleen Work Phone: Start: 03-04-2018 End: 03-04-2018 Complete blood count with white cell differential, manual Konstantin Horner Cathleen Work Phone: Start: 03-04-2018 End: 03-04-2018 RUFF TOP Heather Nguyen Work Phone: Start: 03-04-2018 End: 03-04-2018 Hepatic function 2000 panel - Serum or Plasma Konstantin Connolly Work Phone: Start: 03-04-2018 End: 03-04-2018 LIGHT BLUE TOP Heather Nguyen Work Phone: Start: 03-04-2018 End: 03-04-2018 LIGHT GREEN TOP Heather Nguyen Work Phone: Start: 03-04-2018 End: 03-04-2018 Lipase [Enzymatic activity/volume] in Serum or Plasma Konstantin Connolly Work Phone: Start: 03-04-2018 End: 03-04-2018 PINK TOP Keerthi Nguyen Work Phone: Start: 03-04-2018 End: 03-04-2018 RAINBOW DRAW Keerthi Nguyen Work Phone: Start: 09-25-2017 Lipid 1996 panel - S erika or Plasma Sabrina Dee MD, MPH Work Phone: Start: 01-02-2012 Mammography Izabela Rutledge brody Start: 12-11-2011 Microscopic observat ion [Identifier] in Cervix by Cyto stain Keerthi Linsey Plan of Treatment Date Care Activity Detail Author Start: 04-11-2024 Adult BMI Screening Adult BMI Screening [facility] Start: 04-11-2024 Tobacco Screening Tobacco Screening [facility] Start: 02-22-2024 End: 02-22-2024 Patient encounter procedure 02/22/2024 9:30 AM EST Office Visit [facility] [address] [place], [place] [id number] Sabrina Dee MD, MPH [address] [place] [id number] [facility] [place] Start: 11-08-2023 Influenza vaccination INFLUENZA VACCINE (#1) [facility] Start: 05-25-2023 End: 05-25-2023 Patient encounter procedure 05/25/2023 1:00 PM EDT Office Visit [facility] [address] [place] [address] Orlando Al MD [address] [place] [address] [facility] Start: 05-19-2023 End: 05-10-2024 UPPER EUS UPPER EUS GI/Bronch Routine Alcohol-induced chronic pancreatitis Expected: 05/19/2023, Expires: 05/10/2024 [facility] Comment on above: Expected: 05/19/2023, Expires: Start: 05-11-2023 End: 05-10-2024 VITAMIN D (25-HYDROXY,TOTAL) VITAMIN D (25-HYDROXY,TOTAL) Lab Routine Other osteoporosis without current pathological fracture Expected: 05/11/2023, Expires: 05/10/2024 [facility] Comment on above: Expected: 05/11/2023, Expires: 5 Start: 04-11-2023 Computed tomography of abdomen and pelvis with contrast CT abdomen pelvis w con [facility] Start: 04-11-2023 CT Abdomen and Pelvis W contrast IV [facility] Start: 03-16-2023 End: 03-16-2023 Patient encounter procedure 03/16/2023 Office Visit Gastroenterology Sabrina Dee MD, MPH [address] [place] [address] [facility] [place] Start: 11-07-2022 COVID-19 Vaccine ( season) COVID-19 Vaccine ( season) [facility] Start: 11-07-2022 Influenza vaccination [facility] Start: 09-25-2022 Lipid panel LIPID SCREENING [facility] Start: 07-29-2022 End: 06-17-2023 UPPER EUS UPPER EUS GI/Bronch Routine Alcohol-induced chronic pancreatitis Expected: 07/29/2022, Expires: 06/17/2023 [facility] Comment on above: Expected: 07/29/2022, Expires: 4 Start: 07-28-2022 End: 01-28-2023 Screening colonoscopy SCREENING COLONOSCOPY GI/Bronch Routine Encounter for screening colonoscopy Expected: 07/28/2022, Expires: 01/28/2023 [facility] Comment on above: Expected: 07/28/2022, Expires: 3 Start: 07-28-2022 End: 07-28-2022 Patient encounter procedure 07/28/2022 Appointment Endoscopy Julia Tyler MD [address] [address] [facility] Start: 06-16-2022 End: 12-16-2022 Screening colonoscopy SCREENING COLONOSCOPY GI/Bronch Routine Encounter for screening colonoscopy Expected: 06/16/2022, Expires: 12/16/2022 [facility] Comment on above: Expected: 06/16/2022, Expires: 3 Start: 06-16-2022 End: 06-16-2022 Patient encounter procedure 06/16/2022 Office Visit Gastroenterology Sabrina Dee MD, MPH [address] [place] [address] [facility] [place] Start: 03-22-2022 Bacteria identified in Urine by Culture [facility] Start: 01-28-2022 End: 01-28-2022 Patient encounter procedure 01/28/2022 Appointment Endoscopy Sabrina Dee MD, MPH [address] [place] [address] [facility] Start: 01-28-2022 Subsequent hospital visit by physician 01/28/2022 Hospital Encounter Endoscopy Sabrina Dee MD, MPH [address] [place] [address] Arrived [facility] Comment on above: Arrived Start: 01-14-2022 End: 12-16-2022 UPPER EUS UPPER EUS GI/Bronch Routine Recurrent acute pancreatitis Expected: 01/14/2022, Expires: 12/16/2022 [facility] Comment on above: Expected: 01/14/2022, Expires: 3 Start: 12-16-2021 End: 12-16-2022 Bone density scan BONE DENSITY AXIAL (HIP, PELVIS, SPINE) Imaging Routine Recurrent acute pancreatitis History of smoking 25-50 pack years Expected: 12/16/2021, Expires: 12/16/2022 [facility] Comment on above: Expected: 12/16/2021, Expires: 3 Start: 11-07-2021 Influenza vaccination INFLUENZA VACCINE (#1) [facility] Start: 10-09-2021 CT of abdomen and pelvis without contrast CT abdomen pelvis wo con [facility] Start: 10-09-2021 End: 10-09-2021 Emergency department patient visit Departed Emergency [facility] Start: 11-13-2020 COVID-19 VACCINE (3 - Booster for Pfizer series) COVID-19 VACCINE (3 - Booster for Pfizer series) [facility] Start: 11-08-2019 Influenza vaccination [place], [place] Start: 11-08-2019 Influenza vaccination given Sequential Influenza Vaccine (#1) [facility] Start: 06-21-2019 Administration of herpes zoster vaccine Zoster Vaccines (1 of 2) [facility] Start: 06-21-2019 Administration of varicella zoster vaccine Zoster (Shingles) Vaccine (1 of 2) [facility] Start: 06-21-2019 Screening for malignant neoplasm of breast Breast cancer screen [place], [place] Start: 06-21-2019 Screening for malignant neoplasm of colon [place] Start: 06-21-2019 Screening for malignant neoplasm of lung LUNG CANCER SCREENING [facility] Start: 06-21-2019 Shingles Vaccine (1 of 2) Shingles Vaccine (1 of 2) [place] Start: 06-21-2019 Zoster vaccine hzv live for subcutaneous use ZOSTER (SHINGLES) VACCINE (1 of 2) [facility] Start: 11-07-2017 Influenza vaccination [facility] Start: 11-07-2016 Influenza vaccination SEQUENTIAL INFLUENZA VACCINE (#1) [facility] Start: 12-10-2014 Screening for malignant neoplasm of cervix PAP SMEAR [facility] Start: 2014 Screening for malignant neoplasm of colon COLORECTAL CANCER SCREENING DISCUSSION [facility] Start: 01-01-2013 Screening for malignant neoplasm of breast MAMMOGRAM SCREENING DISCUSSION [facility] Start: 01-01-2013 Screening mammography Mammogram [facility] Start: 2009 Lipid panel Lipid screen [place], [place] Start: 1990 Screening for malignant neoplasm of cervix [facility] Start: 1988 DTaP,Tdap and Td Vaccines (1 - Tdap) DTaP,Tdap and Td Vaccines (1 - Tdap) [facility] Start: 1988 DTaP/Tdap/Td vaccine (1 - Tdap) DTaP/Tdap/Td vaccine (1 - Tdap) [place], [place] Start: 1988 Hepatitis B vaccination HEP B VACCINE (1 of 3 - 19+ 3-dose series) [facility] Start: 1988 Third diphtheria, tetanus and acellular pertussis (DTaP) vaccination TDAP (ADULT) [facility] Start: 06-21-1987 Hepatitis C antibody, confirmatory test Hepatitis C Screening [facility] Start: 06-21-1987 Tetanus vaccination TETANUS [facility] Start: 1985 COVID-19 Vaccine (1 of 2) COVID-19 Vaccine (1 of 2) [facility] Start: 1984 HIV screening [facility] Start: 1981 Depression Screening Depression Screening [facility] Start: 06-21-1975 Pneumococcal 0-64 years Vaccine (1 of 1 - PPSV23) Pneumococcal 0-64 years Vaccine (1 of 1 - PPSV23) [place], [place] Start: 06-21-1975 PNEUMOCOCCAL VACCINE SERIES (1 - PCV) PNEUMOCOCCAL VACCINE SERIES (1 - PCV) [facility] Start: 06-21-1975 PNEUMOCOCCAL VACCINE SERIES (1 of 2 - PCV) PNEUMOCOCCAL VACCINE SERIES (1 of 2 - PCV) [facility] Start: 1972 History and physical examination, annual for health maintenance Wellness Visit [facility] Start: 1969 Hepatitis B vaccination HEP B VACCINE (1 of 3 - 3-dose series) [facility] Start: 1969 Hepatitis C screening [facility] Start: 1969 Tetanus vaccination [facility] Start: 1969 Tobacco Counsel[address] Tobacco Counseling [facility] CBC auto differential CBC auto d ifferential Lab Routine Daily until discontinued starting 08/23/2019, 3 completed [facility] Comment on above: Daily until discontinued starting 2019, [address] ABDOMEN PELVIS W IV CONTRAST Additional Contrast? None CT ABDOMEN PELVIS W IV CONTRAST Additional Contrast? None Imaging STAT 03/26/2020 3:01 PM EST [facility] GILBERT IgG Subclasses IgG Subclasses A dd-On 05/14/2017 2:06 PM EST [facility] Initiate Oxygen Therapy Protocol Initiate Oxygen Therapy Protocol Respiratory Care Routine Daily until discontinued starting 08/22/2019 [facility] Comment on above: Daily until discontinued starting 2019 Lipase Lipase Lab Routi ne Daily until discontinued starting 08/23/2019, 3 completed [facility] Comment on above: Daily until discontinued starting 2019, [address] [facility] Work Phone: Patient referral [facility] Work Phone: End: 08-22-2019 Pulse Oximetry Spot Check Pulse Oximetry Spot Check Respiratory Care Routine One Time for 1 Occurrences starting 08/22/2019 until 08/22/2019 [facility] Comment on above: One Time for 1 Occurrences starting 08/07 until 08/22/2019 Screening colonoscopy SCREENING COLONOSCOPY GI/Bronch Routine Encounter for screening colonoscopy 01/28/2022 9:43 AM [facility] Screening colonoscopy SCREENING COLONOSCOPY GI/Bronch Routine Encounter for screening for malignant neoplasm of colon Ordered: 05/11/2023 [facility] Comment on above: Ordered: 05/11/2023 Immunizations Immunization Date Immunization Notes Care Provider Fa joy 12-23-2015 influenza, injectabl e, quadrivalent, contains preservative Sabrina Dee MD, MPH Work Phone: [facility] 12-23-2015 influenza virus vaccine, unspecified formulation Sabrina Dee MD, MPH Work Phone: [facility] 12-15-2014 influenza virus vaccine, unspecified formulation Sabrina Dee MD, MPH Work Phone: [facility] Payers Date Payer Category Payer Self-pay [id number] 2022 Medicaid [facility] O [id number] 2022-Present [phone] [address] [place] [address] [id number] 2019 Unknown [facility] xxxxxxxxxxx 2019-Present [phone] CLAIMS DEPARTMENT [address] [place] [address] xxxxxxxxxxx [id number]. [id number] 2017 Unknown [id number] 2017 Unknown 1969 Unknown [id number] 2.16.840.1.090846.3.579.2.900 1969 Unknown [id number] 2.16.840.1.158563.3.579.2.900 1969 Unknown [id number] 2.16.840.1.584237.3.579.2.900 1969 Unknown [id number] 2.16.840.1.428301.3.579.2.900 1969 Unknown [id number] 2.16.840.1.727997.3.579.2.900 1969 Unknown [id number] 2.16.840.1.206775.3.579.2.593 1969 Unknown [id number] 2.16.840.1.429112.3.579.2.593 1969 Unknown [id number] 2.16.840.1.704627.3.579.2.593 1969 Unknown [id number] 2.16.840.1.302952.3.579.2.593 1969 Unknown [id number] 2.16.840.1.600940.3.579.2.593 1969 Unknown [id number] 2.16.840.1.890180.3.579.2.593 1969 Unknown [id number] 2.16.840.1.413098.3.579.2.593 1969 Unknown [id number] 2.16.840.1.115504.3.579.2.593 1969 Unknown [id number] 2.16.840.1.363302.3.579.2.593 1969 Unknown [id number] 2.16.840.1.987155.3.579.2.593 1969 Unknown [id number] 2.16.840.1.326393.3.579.2.593 1969 Unknown [id number] 2.16.840.1.662651.3.579.2.593 1969 Unknown [id number] 2.16.840.1.013919.3.579.2.593 1969 Unknown [id number] 2.16.840.1.657227.3.579.2.593 1969 Unknown [id number] 2.16.840.1.611409.3.579.2.1286 1969 Unknown [id number] 2.16.840.1.422041.3.579.2.1285 1969 Unknown [id number] 2.16.840.1.345056.3.579.2.128 1969 Unknown [id number] 2.16.840.1.382921.3.579.2.1285 1969 Unknown [id number] 2.16.840.1.585432.3.579.2.128 1969 Unknown [id number] 2.16.840.1.416453.3.579.2.1285 1969 Unknown [id number] 2.16.840.1.554090.3.579.2.594 1969 Unknown [id number] 2.16.840.1.981712.3.579.2.594 1969 Unknown [id number] 2.16.840.1.006592.3.579.2.173 1959 Medicaid [id number] 1959 Unknown [id number] 1.2.840.595492.1.13.239.2.7.3. [id number] Unknown [id number] 2.16.840.1.785583.3.579.2.531 Unknown [id number] 2.16.840.1.531273.3.579.2.531 Unknown [id number] 2.16.840.1.856083.3.579.2.531 Unknown [id number] 2.16.840.1.417927.3.579.2.531 Social History Date Type Detail Facility Start: 06-09-2017 End: 12-16-2021 Tobacco smoking status [facility] Current every day smoker [facility] End: 10-30-2020 History of tobacco use Cigarette Smoker [facility] Start: 06-09-2017 End: 09-08-2023 Cigarettes smoked current (pack per day) - Reported [facility] Start: 1970 Sex Assigned At Not on file O [facility] Start: 08-22-2019 End: 09-08-2023 Alcohol intake Current non-drinker of alcohol (finding) [place] Exposure to SARS-CoV -2 (event) Unable to assess [place] Start: 03-08-2018 End: 12-16-2021 Tobacco use and exposure Never used [place] Start: 07-24-2014 Tobacco Comment Smokes < 1/2 p pd, smoker for 30+ years [facility] Start: 07-24-2014 Alcohol Comment Prior heavy dr carrillo, quit 8 years ago [facility] Start: 04-11-2023 End: 09-08-2023 Sex Assigned At [facility] Start: 09-25-2021 End: 04-18-2023 Tobacco smoking status NHIS Smoker (finding) [facility] Start: 1970 Sex Assigned At Female F [facility] Start: 05-09-2016 Alcohol Comment been sober for 9 yea rs [facility] Start: 04-02-2023 Tobacco smoking stat us [facility] Current some day smoker [facility] Start: 06-25-2022 [facility] Start: 04-11-2023 End: 05-11-2023 Alcohol intake Ex-drinker (finding) [facility] Childcare Unknown [facility] Start: 06-25-2022 Alcohol Comment Has not consum ed alcohol in 12 years [facility] Gender identity Identifies as fe male gender (finding) [facility] Clinical Notes 10-08-2019 to 09-08-2023 Sabrina Dee MD, MPH - 09/08/2023 7:30 AM EDTSaracelis Dee MD, MPH - 09/08/2023 7:30 AM EDTNursing Notes - Leona Toussaint RN - 09/08/2023 7:30 AM EDTPatient Instructions Note Date & Type Note Facility 09-08-2023 History and physical note ENDOSCOPIC PREPROCEDURE HISTORY AND PHYSICAL HISTORY OF PRESENT ILLNESS: Chioma Rainey is a 53 y.o. female seen in the pre-procedure area at [facility]. The indication for endoscopic evaluation includes: Alcohol-induced chronic pancreatitis PAST MEDICAL HISTORY: Past Medical History: Diagnosis Date Anemia Depression H. pylori infection Neutrophilic leukocytosis Pancreatitis SURGICAL HISTORY: Past Surgical History: Procedure Laterality Date EGD W/ ULTRASOUND N/A 12/01/2019 Laterality: N/A; Surgeon: Sabrina Dee MD, MPH; Location: [facility] EGD W/ ULTRASOUND N/A 04/23/2016 Laterality: N/A; Surgeon: Pineda Troy MD; Location: [facility] EGD W/ ULTRASOUND N/A 01/23/2016 Laterality: N/A; Surgeon: Pineda Troy MD; Location: [facility] CHANGE TUBE GASTROSTOMY N/A 08/20/2015 Laterality: N/A; Surgeon: Yanni Alnozo MD; Location: [facility] EGD DIAGNOSTIC N/A [...] HYSTERECTOMY MEDICATIONS: Current Outpatient Medications Medication Instructions Ergocalciferol (VITAMIN D2) 50,000 Units, Oral, WEEKLY Pancreatic enzymes (Creon) [address]79-[address] units [address] Particles capsule 72,000 Units, Oral, 2 TIMES DAILY WITH MEALS Current Outpatient Medications: Ergocalciferol 1.25 MG (35745 UT) capsule, Take 1 capsule by mouth once a week., Disp: 8 capsule, Rfl: 0 Pancreatic enzymes (Creon) [address] Particles capsule, Take 3 capsules by mouth 2 times daily with meals., Disp: 180 capsule, Rfl: 11 Current Facility-Administered Medications: benzocaine 20 % HURRICAINE 1 Application, 1 Application, Mouth/Throat, As directed PRN, Sabrina Dee MD, MPH HYDROmorphone (DILAUDID) injection 0.5 mg, 0.5 mg, Intravenous, Q3H PRN, Lovely Schneider MD, 0.5 mg at 09/08/23 0829 simethicone undiluted 40 mg/0.6 mL irrigation 1 Application, 1 Application, Irrigation, As directed PRN, Sabrina Dee MD, MPH ALLERGIES: Allergies Allergen Reactions Toradol [Ketorolac Tromethamine] Hives and Itching Morphine Hives Tramadol Hives Haloperidol Panic attack Ibuprofen Hives and Swelling Penicillins Swelling Reglan [Metoclopramide] Anxiety FOCUSED REVIEW OF SYSTEMS: Negative for nausea, vomiting, abdominal pain and diarrhea VITAL SIGNS: Vitals: 09/08/23 0804 09/08/23 0815 09/08/23 0830 09/08/23 0845 BP: 115/69 109/67 110/69 97/54 Pulse: 108 97 97 85 Resp: 20 11 23 13 Temp: 97.7 degrees F (36.5 degrees C) TempSrc: Infrared SpO2: 97% 100% 100% 96% Height: PREPROCEDURE PHYSICAL EXAM: AIRWAY: normal, Mallampati: Class II (complete visualization of the uvula) HEART: Regular and No murmur PULMONARY: Lungs clear to auscultation bilaterally ABDOMEN: Soft, nontender, nondistended ASSESSMENT: Chioma Rainey is a 53 y.o. female is ready for the planned procedure. ASA Class: ASA 3 - Patient with moderate systemic disease with functional limitations PLAN: Will plan to proceed with UPPER EUS using Monitored Anesthesia Care. Sabrina Dee MD, MPH [facility] 09-08-2023 History and physical note ENDOSCOPIC PREPROCEDURE HISTORY AND PHYSICAL HISTORY OF PRESENT ILLNESS: Chioma Rainey is a 53 y.o. female seen in the pre-procedure area at [facility]. The indication for endoscopic evaluation includes: Alcohol-induced chronic pancreatitis PAST MEDICAL HISTORY: Past Medical History: Diagnosis Date Anemia Depression H. pylori infection Neutrophilic leukocytosis Pancreatitis SURGICAL HISTORY: Past Surgical History: Procedure Laterality Date EGD W/ ULTRASOUND N/A 12/01/2019 Laterality: N/A; Surgeon: Sabrina Dee MD, MPH; Location: [facility] EGD W/ ULTRASOUND N/A 04/23/2016 Laterality: N/A; Surgeon: Pineda Troy MD; Location: [facility] EGD W/ ULTRASOUND N/A 01/23/2016 Laterality: N/A; Surgeon: Pineda Troy MD; Location: [facility] CHANGE TUBE GASTROSTOMY N/A 08/20/2015 Laterality: N/A; Surgeon: aYnni Alonzo MD; Location: [facility] EGD DIAGNOSTIC N/A 06/25/2015 Laterality: N/A; Surgeon: Pineda Troy MD; Location: [facility] EGD W/ PLACEMENT OR REPLACEMENT PEG N/A 06/15/2015 Laterality: N/A; Surgeon: Curry Newell MD; [facility]: [facility] EGD W/ INSERTION TUBE OR CATHETER N/A 06/13/2015 Laterality: N/A; Surgeon: Jose Ty MD; Location: [facility] EGD W/ ULTRASOUND N/A 02/14/2015 Laterality: N/A; Surgeon: Pineda Troy MD; Location: [facility] CHOLECYSTECTOMY CHOLECYSTECTOMY, LAPAROSCOPIC HYSTERECTOMY MEDICATIONS: Current Outpatient Medications Medication Instructions Ergocalciferol (VITAMIN D2) 50,000 Units, Oral, WEEKLY Pancreatic enzymes (Creon) 57133-85[address] units Cap [address] Particles capsule 72,000 Units, Oral, 2 TIMES DAILY WITH MEALS Current Outpatient Medications: Ergocalciferol 1.25 MG (33646 UT) capsule, Take 1 capsule by mouth once a week., Disp: 8 capsule, Rfl: 0 Pancreatic enzymes (Creon) 57488-[address] units [address] Particles capsule, Take 3 capsules by mouth 2 times daily with meals., Disp: 180 capsule, Rfl: 11 Current Facility-Administered Medications: benzocaine 20 % HURRICAINE 1 Application, 1 Application, Mouth/Throat, As directed PRN, Sabrina Dee MD, MPH HYDROmorphone (DILAUDID) injection 0.5 mg, 0.5 mg, Intravenous, Q3H PRN, Lovely Schneider MD, 0.5 mg at 09/08/23 0829 simethicone undiluted 40 mg/0.6 mL irrigation 1 Application, 1 Application, Irrigation, As directed PRN, Sabrina Dee MD, MPH ALLERGIES: Allergies Allergen Reactions Toradol [Ketorolac Tromethamine] Hives and Itching Morphine Hives Tramadol Hives Haloperidol Panic attack Ibuprofen Hives and Swelling Penicillins Swelling Reglan [Metoclopramide] Anxiety FOCUSED REVIEW OF SYSTEMS: Negative for nausea, vomiting, abdominal pain and diarrhea VITAL SIGNS: Vitals: 09/08/23 0804 09/08/23 0815 09/08/23 0830 09/08/23 0845 BP: 115/69 109/67 110/69 97/54 Pulse: 108 97 97 85 Resp: 20 9 17 13 Temp: 97.7 degrees F (36.5 degrees C) TempSrc: Infrared SpO2: 97% 100% 100% 96% Height: PREPROCEDURE PHYSICAL EXAM: AIRWAY: normal, Mallampati: Class II (complete visualization of the uvula) HEART: Regular and No murmur PULMONARY: Lungs clear to auscultation bilaterally ABDOMEN: Soft, nontender, nondistended ASSESSMENT: Chioma Rainey is a 53 y.o. female is ready for the planned procedure. ASA Class: ASA 3 - Patient with moderate systemic disease with functional limitations PLAN: Will plan to proceed with UPPER EUS using Monitored Anesthesia Care. Sabrina Dee MD, MPH documented in this encounter [facility] 09-08-2023 Miscellaneous Notes RN and educated pt on DC instructions, pt verbalized understanding. IV removed per protocol. documented in this encounter [facility] 09-08-2023 Nurse Note Stefano educated pt on DC instructions, pt verbalized understanding. IV removed per protocol. [facility] 05-22-2023 Miscellaneous Notes Called patient to remind them to bring their most current copy of their medication list with them to their appt. Patient verbalizes understanding. [facility] Telephone encounter Note Called patient to remind them to bring their most current copy of their medication list with them to their appt. Patient verbalizes understanding. [facility] 05-11-2023 History of Presen t illness Narrative This Facility Maintenance Supervisor verified the patients name and date [...] for pain management 5. Prior evaluation at [facility] for TPIAT and was not a [...] (human immunodeficiency virus infection), Hyperlipidemia, Hyperthyroidism, Hypothyroidism, PR (myocardial infarction), Migraine, PEGGY (obstructive sleep apnea), [...] includes the following prescription(s): Pancreatic enzymes (Creon) [address]70-[address] Particles capsule and Ergocalciferol 1.25 MG (50508 UT) capsule. Allergies: She is allergic to [...] Hepatology, and Nutrition documented in this encounter [facility] 05-11-2023 Instructions Sabrina Dee MD, MPH [...] celiac plexus block documented in this encounter [facility] 04-16-2023 Miscellaneous Notes Pt called requesting to schedule a new patient appt. Referral is in media from [employer], [place]. A good phone number to reach the pt: [phone] Referral in media was to [facility] so pt has no referral to nephrology. LM informing pt she would need to have her referring provider fax us over a referral and then I could schedule her a new pt appt. [facility] Telephone encounter Note Pt called requesting to schedule a new patient appt. Referral is in media from [employer]. A good phone number to reach the pt: [phone] [facility]23 Telephone encounter Note Referral in media was to [facility] so pt has no referral to nephrology. LM informing pt she would need to have her referring provider fax us over a referral and then I could schedule her a new pt appt. [facility]-16-2023 Miscellaneous Notes LMOM for the patient to call and schedule their new pt appointment with [facility]. [facility]23 Telephone encounter Note LMOM for the patient to call and schedule their new pt appointment with [facility]. [facility] 08-12-2022 History and physical note ENDOSCOPIC PREPROCEDURE HISTORY AND PHYSICAL HISTORY OF PRESENT ILLNESS: Chioma Rainey is a 52 y.o. female seen in the pre-procedure area at [facility]. The indication for endoscopic evaluation includes: [...] 20 mg, Oral, DAILY Pancreatic enzymes (Creon) [address] Particles capsule 48,000 Units, Oral, 3 TIMES DAILY WITH MEALS Current Outpatient Medications: omeprazole [address] capsule, Take 1 capsule by mouth daily., Disp: 30 capsule, Rfl: 6 amitriptyline 10 MG tablet, Take 2.5 tablets by mouth at bedtime., Disp: 30 tablet, Rfl: 11 ergocalciferol 1.25 MG (86710 UT) capsule, Take 1 capsule by mouth once a week for 8 doses., Disp: 8 capsule, Rfl: 0 Pancreatic enzymes (Creon) 03394-[address] Particles capsule, Take 2 [...] Monitored Anesthesia Care. Sabrina Dee MD, MPH [facility] 08-12-2022 History and physical note ENDOSCOPIC PREPROCEDURE HISTORY AND PHYSICAL HISTORY OF PRESENT ILLNESS: Chioma Rainey is a 52 y.o. female seen in the pre-procedure area at [facility]. The indication for endoscopic evaluation includes: Alcohol-induced chronic pancreatitis PAST MEDICAL HISTORY: Past Medical History: Diagnosis Date Anemia Depression H. pylori infection Neutrophilic leukocytosis Pancreatitis SURGICAL HISTORY: Past Surgical History: Procedure Laterality Date EGD W/ ULTRASOUND N/A 12/01/2019 Laterality: N/A; Surgeon: Sabrina Dee MD, MPH; Location: [facility] EGD W/ ULTRASOUND N/A 04/23/2016 Laterality: N/A; Surgeon: Pineda Troy MD; Location: [facility] EGD W/ ULTRASOUND N/A 01/23/2016 Laterality: N/A; Surgeon: Pineda Troy MD; Location: [facility] CHANGE TUBE GASTROSTOMY N/A 08/20/2015 Laterality: N/A; Surgeon: Yanni Alonzo MD; Location: [facility] EGD DIAGNOSTIC N/A 06/25/2015 Laterality: N/A; Surgeon: Pineda Troy MD; Location: [facility] EGD W/ PLACEMENT OR REPLACEMENT PEG N/A 06/15/2015 Laterality: N/A; Surgeon: Curry Newell MD; Location: [facility] EGD W/ INSERTION TUBE OR CATHETER N/A 06/13/2015 Laterality: N/A; Surgeon: Jose Ty MD; Location: [facility] EGD W/ ULTRASOUND N/A 02/14/2015 Laterality: N/A; Surgeon: Pineda Troy MD; Location: [facility] CHOLECYSTECTOMY CHOLECYSTECTOMY, LAPAROSCOPIC HYSTERECTOMY MEDICATIONS: Current Outpatient Medications Medication Instructions Amitriptyline (ELAVIL) 25 mg, Oral, DAILY AT BEDTIME Ergocalciferol (VITAMIN D2) 50,000 Units, Oral, WEEKLY omeprazole (PRILOSEC) 20 mg, Oral, DAILY Pancreatic enzymes (Creon) 29259-[address] Particles capsule 48,000 Units, Oral, 3 TIMES DAILY WITH MEALS Current Outpatient Medications: omeprazole [address] capsule, Take 1 capsule by mouth daily., Disp: 30 capsule, Rfl: 6 amitriptyline 10 MG tablet, Take 2.5 tablets by mouth at bedtime., Disp: 30 tablet, Rfl: 11 ergocalciferol 1.25 MG (63524 UT) capsule, Take 1 capsule by mouth once a week for 8 doses., Disp: 8 capsule, Rfl: 0 Pancreatic enzymes (Creon) 42292-[address] units [address] Particles capsule, Take 2 [...] MD, MPH documented in this encounter [facility] 08-12-2022 Nurse Note PT Given discharge paperwork and reviewed per MD and nurse. Rock Crusher Operator available.Diet and restrictions reviewed as well. Venous access removed no complications noted. Ok to d/c Anesthesia and procedural . documented in this encounter [facility] 08-12-2022 Nurse Surgical operation note PT Given discharge paperwork and reviewed per MD and nurse. Rock Crusher Operator available.Diet and restrictions reviewed as well. Venous access removed no complications noted. Ok to d/c Anesthesia and procedural . [facility] History of Presen t illness Narrative This Facility Maintenance Supervisor verified the patients name and date [...] for pain management 5. Prior evaluation at [facility] for TPIAT and was not a candidate 6. Last CT was at [facility] in 05/2019: No calcification in the [...] (human immunodeficiency virus infection), Hyperlipidemia, Hyperthyroidism, Hypothyroidism, PR (myocardial infarction), Migraine, PEGGY (obstructive sleep apnea), [...] amitriptyline 10 MG tablet, ergocalciferol 1.25 MG (80625 UT) capsule, and Pancreatic enzymes (Creon) [address] Particles capsule. Allergies: She [...] Hepatology, and Nutrition documented in this encounter [facility] 06-16-2022 Instructions Sabrina Dee MD, MPH - 06/16/2022 11:00 AM EDT Schedule EUS celiac plexus block; EGD dilation Referral to endocrinology; appointment to be scheduled Return to clinic in Mar 2023 Smoking cessation Vitamin D 2000 units daily Calcium supplement 1 gram daily Omeprazole (Prilosec) 20mg daily, take at least 30 mins before dinner documented in this encounter [facility] 01-28-2022 Miscellaneous Notes Attending physician in room speaking with patient and family on results. Attending physician ok for discharge. Pt ambulated unassisted with steady gait and balance. IV removed and discharge instructions given with verbal ok by patient of understanding. Pt discharged via w/c with fork truck driver from unit. Dr dee aware patient ready for results Updated dr goins on patient pain and received new orders documented in this encounter [facility] 01-28-2022 Note Formatting of this n ote might be different from the original. Attending physician in room speaking with patient and family on results. Attending physician ok for discharge. Pt ambulated unassisted with steady gait and balance. IV removed and discharge instructions given with verbal ok by patient of understanding. Pt discharged via w/c with fork truck driver from unit. [facility] 01-28-2022 Note Formatting of this n ote might be different from the original. Dr dee aware patient ready for results [facility] 01-28-2022 Note Formatting of this n ote might be different from the original. Updated dr goins on patient pain and received new orders [facility] 01-28-2022 History and physical note ENDOSCOPIC PREPROCEDURE HISTORY AND PHYSICAL HISTORY OF PRESENT ILLNESS: Chioma Rainey is a 51 y.o. female seen in the preoprocedure area at [facility]. The indication for endoscopic evaluation includes: [...] 50,000 Units, Oral, WEEKLY Pancreatic enzymes (Creon) 66365-[address] Particles capsule 48,000 Units, Oral, 3 TIMES DAILY WITH MEALS Current Outpatient Medications: amitriptyline 10 MG tablet, Take 2.5 tablets by mouth at bedtime., Disp: 30 tablet, Rfl: 11 Pancreatic enzymes (Creon) 32175-[address] Particles capsule, Take 2 capsules by mouth 3 times daily with meals., Disp: 180 capsule, Rfl: 0 ergocalciferol 1.25 MG (83518 UT) capsule, Take 1 capsule by mouth [...] Monitored Anesthesia Care. Sabrina Dee MD, MPH [facility] 01-28-2022 History and physical note ENDOSCOPIC PREPROCEDURE HISTORY AND PHYSICAL HISTORY OF PRESENT ILLNESS: Chioma Rainey is a 51 y.o. female seen in the preoprocedure area at [facility]. The indication for endoscopic evaluation includes: [...] 50,000 Units, Oral, WEEKLY Pancreatic enzymes (Creon) 06290-[address] units [address] Particles capsule 48,000 Units, Oral, 3 TIMES DAILY WITH MEALS Current Outpatient Medications: amitriptyline 10 MG tablet, Take 2.5 tablets by mouth at bedtime., Disp: 30 tablet, Rfl: 11 Pancreatic enzymes (Creon) 29737-[address] Particles capsule, Take 2 capsules by mouth 3 times daily with meals., Disp: 180 capsule, Rfl: 0 ergocalciferol 1.25 MG (06423 UT) capsule, Take 1 capsule by mouth [...] MD, MPH documented in this encounter [facility] 12-16-2021 History of Presen t illness Narrative [...] for pain management 5. Prior evaluation at [facility] for TPIAT and was not a candidate 6. Last CT was at [facility] in 05/2019: No calcification in the [...] (human immunodeficiency virus infection), Hyperlipidemia, Hyperthyroidism, Hypothyroidism, PR (myocardial infarction), Migraine, PEGGY (obstructive sleep apnea), [...] 10 MG tablet and Pancreatic enzymes (Creon) 84102-[address] Particles capsule. Allergies: She [...] in 6 months documented in this encounter [facility] 12-16-2021 Instructions Sabrina Dee MD, MPH - 12/16/2021 11:30 AM EDT Schedule DEXA scan Schedule colonoscopy Schedule EUS Start vitamin D 1,000 units daily. Start calcium supplements 1g daily RTC in 6 months documented in this encounter [facility] 03-19-2021 Evaluation note Encounter Date Diagnosis [...] Patient care instructions given in writting by [facility] At Home document morphCARD Other 08-01-2020 History general Narrative - Reported* Type Description Date Medical History chronic pancreatitis Medical History chronic pain Medical History former alcoholic Surgical History egd- [facility] 10[facility]2019 Surgical History GALLBLADDER Surgical History COLON-[facility] Hospitalization History see above morphCARD Other Evaluation noteNo assessment information available [facility] Work Phone: Evaluation note* Diagnosis Recurrent acute pancreatitis- Primary Acute pancreatitis History of smoking 25-50 pack years Alcohol-induced chronic pancreatitis Chronic pancreatitis Epigastric pain Abdominal pain, epigastric Encounter for screening colonoscopy Special screening for malignant neoplasms, colon [facility] Recurrent acute pancreatitis Acute pancreatitis History of smoking 25-50 pack years Encounter for screening colonoscopy Special screening for malignant neoplasms, colon [facility] Diagnosis Other osteoporosis without current pathological fracture- Primary Recurrent acute pancreatitis Acute pancreatitis Encounter for screening colonoscopy Special screening for malignant neoplasms, colon [facility] Diagnosis Encounter for screening colonoscopy Special screening for malignant neoplasms, colon [facility] Diagnosis Osteoporosis without current pathological fracture, unspecified osteoporosis type- Primary Alcohol-induced chronic pancreatitis Chronic pancreatitis [facility] Diagnosis Alcohol-induced chronic pancreatitis Chronic pancreatitis [facility] Diagnosis Alcohol-induced chronic pancreatitis- Primary Chronic pancreatitis Encounter for screening for malignant neoplasm of colon Special screening for malignant neoplasms, colon Other osteoporosis without current pathological fracture Epigastric pain Abdominal pain, epigastric Smoking Tobacco use disorder Gastroesophageal reflux disease without esophagitis Esophageal reflux [facility] Diagnosis Alcohol-induced chronic pancreatitis Chronic pancreatitis [facility] Additional Instructions Fluids Phenergan if needed for nausea vomiting Bentyl as needed for abdominal pain Follow-up with your GI specialist call Thursday for appointment Return here if any problems persist or worsen [facility] Work Phone: Hospital Discharge instructions Additional Instructions Clear with diet today and advance as tolerated Push fluids Percocet if needed for severe pain Zofran or Phenergan if needed for nausea vomiting Keep your doctor's appointment tomorrow as planned Return here if you develop any increased pain, vomiting unable to be controlled, fevers, chills or any other [facility] Work Phone: Hospital Discharge instructions Additional Instructions Follow-up with your primary care doctor Return to ED if develop worsening symptoms or [facility] Work Phone: Hospital Discharge instructions Additional Instructions Follow-up with your private physician as your calcium was slightly elevated Return if symptoms are worse Lots of fluids/no alcoholOhio Valley Hospital Work Phone: InstructionsNot on filedocumented in this encounter [facility] filedocumented in this encounter [facility] filedocumented in this encounter [facility] [...] Log into your personal health record on [email or web address] and enter E907 in the Education box to learn more about Abdominal Pain: Care Instructions. Current as of: August 03, 2015 Content Version: 11.2 7871-1095 [employer]. Care instructions adapted under license by your healthcare professional. If you have questions about a medical condition or this instruction, always ask your healthcare professional. [employer] disclaims any warranty or liability for your [...] Log into your personal health record on [email or web address] and enter H591 in the Education box to learn more about Nausea and Vomiting: Care Instructions. Current as of: August 03, 2015 Content Version: 11.2 2580-8771 [employer]. Care instructions adapted under license by your healthcare professional. If you have questions about a medical condition or this instruction, always ask your healthcare professional. [employer] disclaims any warranty or liability for your use of this information. Please review regarding your visit: Please note that your blood pressure during this ER visit was above 120/80 mmHg. YOUR BP READING WAS: 111/88 The [place] [employer] (AHA) defines a normal blood [...] review at your convenience for more information: [email or web address] in this encounter* Discharge Instr - Other Orders - Poncho Sparks RN - 05/15/2017 1:20 PM EST Patient voices desire to leave hospital AMA. IV removed. Patient is ambulatory in care of spouse. [facility] hospitalist notified. in this encounter* Montse Khan CNP - 08/24/2017 Seek medical attention if you have worsening symptoms or other concerns. Please follow up with your family doctor or one of your choosing. You may find a provider through the [facility] Physician Referral Service by calling [employer]- 8RLipocalyx ([phone]) or by visiting [email or web address] [email or web address], Thank You for choosing [facility]! The following attachments cannot be sent through Care Everywhere. * Nausea and Vomiting (Mozambican) * Gastroenteritis (Mozambican) * Diarrhea (Mozambican) in this encounter The following attachments cannot be sent through Care Everywhere. * Pancreatitis (Mozambican) in this encounter* Instructions* Laura Meyer, RN - 08/25/2019 Patient Instructions: Activity: activity as tolerated Diet: encourage fluids GI specialist in 2 weeks. * Attachments The following attachments cannot be sent through Care Everywhere. 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 Advance Directives and Livin g [...] Documents on File Type Date Recorded 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 Called Dr. Hughes back, insurance writer explained that patient is tolerating dilaudid. Dr. Hughes ordered dose of dilaudid increased from 0.25 mg to 0.5 mg q4 hrs PRN. * Ladan Stearns RN - 08/24/2019 1:27 PM EDT Patient walking in hallway at this time. * Ladan Stearns RN - 08/24/2019 9:14 AM EDT Building Associate to patients bedside at this time to reassess pain. Patient sitting in chair, appears restless and is tearful. Patient states Dilaudid did not help the pain, states there is nothing insurance writer can do as she deals with [...] Scheduled for EGD in September with her Editor Producer at [facility] Discharge Planning -- Home when stable Carley Camara APRN, CARPORT ERECTOR-C Associated attestation - Rajeev Cantor MD - 08/24/2019 5:30 PM EDT Attending Supervising Physician s Attestation Statement I have personally evaluated and examined the patient [id number] in conjunction with the nurse practitioner. I [...] Examined and Reviewed plan of care with CARPORT ERECTOR. Directions and discussion about care and plans. Disposition including length of stay was reviewed. Nutritional status, advanced directive and old records reviewed. Disposition: laxative, limit pain meds, ambulation The patient was seen examined with the nurse practitioner on August 24, 2019 all direct care was reviewed with the nurse practitioner at the bedside with the patient. Electronically signed by Rajeev Cantor MD * Sandra Hernandez RN - 08/23/2019 [...] Birmingham RN - 08/23/2019 4:40 PM EDT Building Associate contacted Dr. Cantor regarding update that patient continues to c/o itching and feeling hot, and that redness is slightly worse to BUE. Order received for Benedryl now and then may repeat in 6 hours if needed. * Brie Birmingham RN - 08/23/2019 3:32 PM EDT Nat from Dr. Cantor's office returned phone call at this time. She states to d/c Lovenox, but he would not give order for Benedryl. Building Associate let nurse know that if patient's c/o ithcing and redness doesn't improve in an hour, that insurance writer will be calling back to update physician. * Brie Birmingham RN - 08/23/2019 3:20 PM EDT Building Associate called into patient's room d/t patient c/o itching, feeling hot , and slight redness noted to BUE and face. Building Associate contacted Dr. Cantor office and left message with his nurse, asking for IV Benedryl and d/c of Lovenox. Patient thinks she may have had reaction to Lovenox in the past, and thatis the only other med she is currently taking here other than Dilaudid. Building Associate did once again verify that patient usually [...] medically stable. Patient lives with her in [place]. She uses no DME and has no outside services currently in place. Patient provides for her own transportation needs and manages her medications. She is independent with her ADL's. PCP is [facility]. Patient has [facility] [place] [place] Medicaid and denies needing further assistance with the cost of her medications. Discharge plan is home with no additional services at this time. Patient is a 'Full Code' status. She has no healthcare directives and voices that she is not interested in pursuing these documents further. DAY CARE SUPERVISOR to monitor and assist with discharge planning [...] Birmingham RN - 08/23/2019 9:05 AM EDT Building Associate made VMWARE ENGINEER aware that patient is vomiting at this time since clear liquid diet added. Building Associate to give Zofran and place patient back [...] weight loss, but states of weight gain. [id number] Discussed need to re-zero Pt bed to verify gain. She declined education needs states she has a GI doctor and RDN at the [facility]. Reports following the guidelines they recommended. [...] 5. Fluid Accumulation-No significant fluid accumulation, 6. Cylinder Checker Strength-Not measured Nutrition Risk Level: Moderate Nutrient Needs: Estimated Daily Total Kcal: 3776-7076(20-23/kg) Estimated Daily Protein (g): 65-75g(1.3-1.5g/kg) Estimated Daily [...] weight gain/23%, recommend to re-zero Pt bed Franklin Body Wt: 110 lb (49.9 kg), % Franklin Body 129% BMI Classification: BMI 25.0 - [...] Nausea or Vomiting, Patient/Family Education Contact Number: [phone] * Carley Camara APRN - NAOMY - 08/23/2019 7:30 AM EDT Progress Note [...] if tolerated Decrease pain medications Ambulate in wolf Continue NS at 75 ml/hr CBC/Lipase Daily Discharge Plan--later today/tomorrow Carley Camara APRN, CARPORT ERECTOR-C Associated attestation - Rajeev Cantor MD - 08/23/2019 12:04 PM EDT Attending Supervising Physician s Attestation Statement I have personally evaluated and examined the patient [id number] in conjunction with the nurse practitioner. I [...] Examined and Reviewed plan of care with CARPORT ERECTOR. Directions and discussion about care and plans. Disposition including length of stay was reviewed. Nutritional status, advanced directive and old records reviewed. Disposition: trial of diet, reduce pain meds, improve activity The patient was seen examined with the nurse practitioner on August 23, 2019 all direct care was reviewed with the nurse practitioner at the bedside with the patient. Electronically signed by Rajeev Cantor MD * Sandra Hernandez RN - 08/22/2019 8:28 PM EDT Pt requesting Dilaudid for 8/10 pain and phenergan for nausea. Meds given per orders. Will continueto monitor. * Brie Birmingham RN - 08/22/2019 3:55 PM EDT Patient arrived to floor via w[facility]c with [facility] staff d/t ED in process of running a code on another patient; supervisor fleshing states that report will be called when able. Building Associate unable to get ahold of staff inED to put patient in integrated logistics operations manager so that insurance writer can transfer patient over to [facility]. Will try again shortly. documented in this [...] Referral Specialty Diagnoses / Procedures Referred By Contac t Referred To Contact Diagnoses Alcohol-induced chronic pancreatitis Procedures UPPER EUS WY ESOPHAGOGASTRODUODENOSCOPY US SCOPE W/ADJ STRXRS Sabrina Dee MD, MPH [address] [place] [phone] Referral ID Status Reason Start Date Expiration Date V isits Requested Visits Authorized [id number] New Request 06/16/2022 07/11/2023 1 1 Specialty Diagnoses / Procedures Referred By Contac t Referred To Contact Endocrinology, Diabetes & Metabolism Diagnoses Osteoporosis without current pathological fracture, unspecified osteoporosis type Sabrina Dee MD, MPH [address] [place] [phone] Referral ID Status Reason Start Date Expiration Date V isits Requested Visits Authorized [id number] New Request 06/16/2022 07/11/2023 1 1 Specialty Diagnoses / Procedures Referred By Contac t Referred To Contact Diagnoses Encounter for screening colonoscopy Procedures SCREENING COLONOSCOPY WY COLON CA SCRN NOT HI RSK IND Sabrina Dee MD, MPH [address] [place] [phone] Referral ID Status Reason Start Date Expiration Date V isits Requested Visits Authorized [id number] New Request 12/16/2021 01/10/2023 1 1 Specialty Diagnoses / Procedures Referred By Contac t Referred To Contact Diagnoses Recurrent acute pancreatitis History of smoking 25-50 pack years Procedures BONE DENSITY AXIAL (HIP, PELVIS, SPINE) Sabrina Dee MD, MPH [address] [place] [phone] Referral ID Status Reason Start Date Expiration Date V isits Requested Visits Authorized [id number] New Request 12/16/2021 01/10/2023 1 1 Specialty Diagnoses / Procedures Referred By Contac t Referred To Contact Diagnoses Recurrent acute pancreatitis Procedures UPPER EUS WY EGD US GUIDED TRANSMURAL INJXN/FIDUCIAL MARKER Sabrina Dee MD, MPH [address] [place] [address] Referral ID Status Reason Start Date Expiration Date V isits Requested Visits Authorized [id number] New Request 12/16/2021 01/10/2023 1 1 Additional [...] the patient. I discussed the patient with CARPORT ERECTOR/PA. I agree with the CARPORT ERECTOR/PA treatment plan. I agree with the CARPORT ERECTOR/PA plan of care. I agree with the CARPORT ERECTOR/PA dispo as documented. 46-year-old female presents with abdominal pain. She states I have chronic pancreatitis and this feels like a flareup . States that she took her usual Phenergan and Sturtevant with minimal relief so came the emergency [...] She is going to follow with her general claims agent with whom she has an appointment on [...] different from the original. ED PROVIDER NOTE [facility] NAME: Chioma Rainey AGE: 46 y.o. : 1970 VISIT DATE: 06/09/2017 CSN: [id number] PCP: Alexander Nichols MD Chief Complaint Patient [...] Phenergan suppository. She states that she took Sturtevant last night. Last dose of Sturtevant was around 9 PM last night. She [...] Procedure: EGD; Surgeon: Romain Dumont MD; Location: [facility]; Service: HYSTERECTOMY ORIF PELVIS ORTHOPEDIC SURGERY [...] Yellow Clarity, Urine Cloudy (A) Clear Specific Mcdonough 1.024 1.005 - 1.025 pH, Urine 5.0 [...] Phenergan suppositories. She has follow-up with her general claims agent at [facility] in 2 weeks. Do not feel she [...] Information 1. Pineda Troy MD. Specialty: Gastroenterology 0 [facility] [address] [address] Contact information for after-discharge care Follow-up information [...] her back. Pt has been taking prescribed Sturtevant without relief and states she has been vomiting.in this encounter I personally interviewed the patient. I personally examined the patient. I discussed the patient with CARPORT ERECTOR/PA. I agree with the CARPORT ERECTOR/PA treatment plan. I agree with the CARPORT ERECTOR/PA plan of care. I agree with the CARPORT ERECTOR/PA dispo as documented. I saw evaluate this [...] different from the original. ED PROVIDER NOTE [facility] NAME: Chioma Rainey AGE: 46 y.o. : 1970 VISIT DATE: 05/14/2017 CSN: [id number] PCP: Alexander Nichols MD Chief Complaint Patient [...] Procedure: EGD; Surgeon: Romain Dumont MD; Location: [facility]; Service: HYSTERECTOMY ORIF PELVIS ORTHOPEDIC SURGERY [...] Colorless, Yellow Clarity, Urine Clear Clear Specific Mcdonough 1.006 1.005 - 1.025 pH, Urine 5.0 [...] in the left lower pelvis. Workstation ID: [id number] Procedures MDM This is a 46-year-old female [...] mis-transcribed.) Indu Zepeda PA-C 05/14/17 2100 Indu Duncan Zepeda PA-C 05/14/17 0888 IV access attempted x 1 unsuccessful . [...] different from the original. ED PROVIDER NOTE [facility] NAME: Chioma Rainey AGE: 47 y.o. : 1970 VISIT DATE: 08/24/2017 CSN: [id number] PCP: Alexander Nichols MD Chief Complaint Patient [...] Procedure: EGD; Surgeon: Romain Dumont MD; Location: [facility]; Service: HYSTERECTOMY ORIF PELVIS ORTHOPEDIC SURGERY [...] Yellow Clarity, Urine Hazy (A) Clear Specific Mcdonough 1.006 1.005 - 1.025 pH, Urine 7.0 [...] probably remain. 5. Small left adrenal adenoma. [employer] [facility] Workstation ID: [id number] Procedures MDM 47-year-old female [...] she did vomit. She was then given [place] Phenergan and a dose of Toradol. She [...] Medicine Why: follow up ER visit [address] [address] Contact information for after-discharge care Follow-up information [...] the patient. I discussed the patient with CARPORT ERECTOR/PA. I agree with the CARPORT ERECTOR/PA treatment plan. I agree with the CARPORT ERECTOR/PA plan of care. I agree with the CARPORT ERECTOR/PA dispo as documented. Formatting of this note may be different from the original. ED PROVIDER NOTE [facility] NAME: Chioma Rainey AGE: 47 y.o. : 1970 VISIT DATE: 03/04/2018 CSN: [id number] PCP: Alexander Nichols MD Chief Complaint Patient [...] Procedure: EGD; Surgeon: Romain Dumont MD; Location: [facility]; Service: HYSTERECTOMY ORIF PELVIS ORTHOPEDIC SURGERY [...] Colorless, Yellow Clarity, Urine Clear Clear Specific Mcdonough 1.004 (L) 1.005 - 1.025 pH, Urine [...] Condition Comment Hospitalize Attending Provider or Group: [facility] [[id number]] Phone call required?: No Follow-up Information Follow-up [...] different from the original. Alirio Negro MD [facility] Hospital[facility] History and Physical Patient Name:Chioma Rainey MR #:[id number] :1970 Admit Date: [id number] Physicians: Alexander Nichols MD (Family); No ref. [...] Procedure: EGD; Surgeon: Romain Dumont MD; Location: [facility]; Service: HYSTERECTOMY ORIF PELVIS ORTHOPEDIC SURGERY [...] To Contact Diagnoses Acute recurrent pancreatitis Rajeev Cantor MD [address] [place] [address], [place] [address] [facility] Reason Comments Abdominal Pain Pt c/o abdominal abelino n, hx of pancreatitis. Onset of pain 10 days ago. Reason Comments Follow-up Patient C/O having f lare up's, Patient went to the ER on the 12/13/2021. Specialty Diagnoses / Procedures Referred By Zia t Referred To Contact Diagnoses Recurrent acute pancreatitis History of smoking 25-50 pack years Procedures BONE DENSITY AXIAL (HIP, PELVIS, SPINE) Sabrina Dee MD, MPH [address] [place] [phone] Referral ID Status Reason Start Date Expiration Date V isits Requested Visits Authorized [id number] New Request 12/16/2021 01/10/2023 1 1 Specialty Diagnoses / Procedures Referred By Zia t Referred To Contact Diagnoses Recurrent acute pancreatitis Procedures UPPER EUS WY EGD US GUIDED TRANSMURAL INJXN/FIDUCIAL MARKER Sabrina Dee MD, MPH [address] [place] [phone] Referral ID Status Reason Start Date Expiration Date V isits Requested Visits Authorized [id number] New Request 12/16/2021 01/10/2023 1 1 Specialty Diagnoses / Procedures Referred By Zia t Referred To Contact Diagnoses Encounter for screening colonoscopy Procedures SCREENING COLONOSCOPY WY COLON CA SCRN NOT HI RSK IND Sabrina Dee MD, MPH [address] [place] [phone] Referral ID Status Reason Start Date Expiration Date V isits Requested Visits Authorized [id number] New Request 12/16/2021 01/10/2023 1 1 Reason Comments Follow-up 6 month follow up Specialty Diagnoses / Procedures Referred By Zia t Referred To Contact Diagnoses Alcohol-induced chronic pancreatitis Procedures UPPER EUS WY ESOPHAGOGASTRODUODENOSCOPY US SCOPE W/ADJ STRXRS Sabrina Dee MD, MPH [address] [place] [phone] Referral ID Status Reason Start Date Expiration Date V isits Requested Visits Authorized [id number] New Request 06/16/2022 07/11/2023 1 1 Reason Comments Follow-up Specialty Diagnoses / Procedures Referred By Zia espinal Referred To Contact Diagnoses Alcohol-induced chronic pancreatitis Procedures UPPER EUS WY EGD US GUIDED TRANSMURAL INJXN/FIDUCIAL MARKER Sabrina Dee MD, MPH [address] [place] [address] Referral ID Status Reason Start Date Expiration Date V isits Requested Visits Authorized [id number] New Request 05/11/2023 06/04/2024 1 1 INFORMATION SOURCE (unrecogn ized section and content) DATE CREATED AUTHOR 03/09/2018 [facility] DATE CREATED AUTHOR AUTHOR'S ORGANIZ ATION 04/08/2021 [facility] DATE CREATED AUTHOR AUTHOR'S ORGANIZ ATION 06/18/2022 [facility] DATE CREATED AUTHOR AUTHOR'S ORGANIZ ATION 04/12/2023 [facility] DATE CREATED AUTHOR AUTHOR'S ORGANIZ ATION 09/02/2023 [facility] DATE CREATED AUTHOR AUTHOR'S ORGANIZ ATION 09/09/2023 [facility] DATE CREATED AUTHOR AUTHOR'S ORGANIZ ATION 10/02/2023 [facility] Care Teams (unrecognized sec tion and content) [...] Active Christa Lopez PA-C Emergency Provider Active Ladies Underwear Operator Relationship Specialty Start Date End Date Pineda Troy MD [address] [place] [address] PCP - Referring 1 Gastroenterology 09/25/17 [facility], Other [address] [place] [address] PCP - General 11/28/19 Ladies Underwear Operator Relationship Specialty Start Date End Date Pineda Troy MD [address] [place] [phone] PCP - Referring 1 Gastroenterology 09/25/17 [facility], Other [address] [facility] [place] [address] PCP - General 11/28/19 Ladies Underwear Operator Relationship Specialty Start Date End Date Pineda Troy MD [address] [place] [phone] PCP - Referring 1 Gastroenterology 09/25/17 [facility], Other [address] [facility] [place] [address] PCP - General 11/28/19 Ladies Underwear Operator Relationship Specialty Start Date End Date Pineda Troy MD [address] [place] [phone] PCP - Referring 1 Gastroenterology 09/25/17 [facility], Other [address] [facility] [place] [address] PCP - General 11/28/19 Team Status: Inactive Member Role Status Dates NON STAFF Primary Care Provider Active Agustin Llanes MD Emergency Provider Active Ladies Underwear Operator Relationship Specialty Start Date End Date Pineda Troy MD [address] [place] [phone] PCP - Referring 1 Gastroenterology 09/25/17 [facility], Other [address] [facility] [place] [address] PCP - General 11/28/19 Ladies Underwear Operator Relationship Specialty Start Date End Date Pineda Troy MD [address] [place] [phone] PCP - Referring 1 Gastroenterology 09/25/17 [facility], Other [address] [facility] [place] [address] PCP - General 11/28/19 Team Status: Inactive [...] April 11, 2023 End: April 12, 2023 Ladies Underwear Operator Relationship Specialty Start Date End Date [facility] [address] [place], [place] PCP - General Family Medicine 03/26/23 Ladies Underwear Operator Relationship Specialty Start Date End Date [facility] [address] [place], [place] PCP - General Family Medicine 03/26/23 Team Status: Inactive Member Role Status Dates NON STAFF Primary Care Provider Active Start: April 18, 2023 End: April 18, 2023 Xiang Kellogg MD Emergency Provider Active Star t: April 18, 2023 End: April 18, 2023 Ladies Underwear Operator Relationship Specialty Start Date End Date Pineda Troy MD [address] [place] [phone] PCP - Referring 1 Gastroenterology 09/25/17 [facility], Other [address] [facility] [address] PCP - General 11/28/19 Ladies Underwear Operator Relationship Specialty Start Date End Date [facility] [address] [place], [place] PCP - General Family Medicine 03/26/23 Ladies Underwear Operator Relationship Specialty Start Date End Date Pineda Troy MD PCP - Referring 1 Gastroenterology 09/25/17 [facility], Other [address] [phone] PCP - General 11/28/19 Goals (unrecognized section and content) Goals may [...] BE BASED ON THE PRIMARY CLINICAL RECORDS. [email or web address] provides no warranty or guarantee of the accuracy or completeness of information in this document.
--- NOTE | 2023-12-08 03:04 | ED.ABDPAIN1 ---
HPI - Abdominal Pain General Chief Complaint: Abdominal Pain Stated Complaint: VOMITTING Time Seen by Provider: 12/08/23 03:01 Source: patient Mode of arrival: walk-in Limitations: no limitations History of Present Illness HPI narrative: patient presents complaining of pancreatic flareup. states past history of alcohol abuse. no longer drinking. complains of vomiting . no diarrhea. denies hematemesis. Related Data Home Medications ?Medication ?Instructions ?Recorded ?Confirmed famotidine 20 mg tablet (Pepcid) 20 mg PO BID PRN heartburn 04/03/23 12/08/23 kalcnj-ohwhsekf-insursr 3 cap PO BIDWM 12/08/23 12/08/23 24,000-76,000-120,000 unit capsule,delayed rel (Creon) Allergies Allergy/AdvReac Type Severity Reaction Status Date / Time haloperidol [From Haldol] Allergy Intermediate Hives Verified 08/12/23 05:56 ibuprofen [From Motrin] Allergy Intermediate Hives Verified 08/12/23 05:56 tramadol Allergy Intermediate Hives Verified 08/12/23 05:56 Penicillins Allergy Unknown Verified 08/12/23 05:56 ketorolac [From Toradol] AdvReac Severe Hives Verified 08/12/23 05:56 fentanyl AdvReac Intermediate Verified 08/12/23 05:56 Review of Systems ROS Status of ROS 10 or more systems reviewed and unremarkable except as noted in history and below [facility] Medical History (Updated 12/08/23 @ 05:27 by Catarino Odonnell MD) COPD (chronic obstructive pulmonary disease) ?J44.9 - Chronic obstructive pulmonary disease, unspecified (ICD-10) Chronic pancreatitis ?K86.1 - Other chronic pancreatitis (ICD-10) Smoker ?F17.200 - Nicotine dependence, unspecified, uncomplicated (ICD-10) History of gastrostomy tube placement Surgical History (Updated 04/03/23 @ 12:10 by Marni Farley) Hx of esophagogastroduodenoscopy ?Z98.890 - Other specified postprocedural states (ICD-10) H/O colonoscopy ?Z98.890 - Other specified postprocedural states (ICD-10) Hx of cholecystectomy ?Z90.49 - Acquired absence of other specified parts of digestive tract (ICD-10) H/O: hysterectomy ?Z90.710 - Acquired absence of both cervix and uterus (ICD-10) Social History (Updated 04/03/23 @ 12:08 by Marni Farley) Smoking status: Current every day smoker Non-prescribed substance use: denies use Highest level of school completed/degree received: high school graduate Little interest or pleasure in doing things: not at all Feeling down, depressed, or hopeless: not at all Exam Constitutional Vital Signs, click to edit/add: Last Vital Signs Temp 97.9 F 12/08/23 02:32 Pulse 98 H 12/08/23 02:32 Resp 18 12/08/23 02:32 BP 133/83 12/08/23 02:32 Pulse Ox 99 12/08/23 02:32 O2 Del Method Room Air 12/08/23 02:32 Common normals: no apparent distress, average body habitus, oriented x3, no limitations, healthy appearing, alert and well nourished HENMT Common normals: normocephalic and head/scalp atraumatic Eye Common normals: EOMs intact bilaterally and conjunctivae normal Respiratory Common normals: normal respiratory effort, no retractions, no use of accessory muscles and clear to auscultation bilaterally Cardio Common normals: regular rate, regular rhythm, S1 normal heart sound and S2 normal heart sound GI Common normals: Normal to inspection, nondistended, normoactive bowel sounds present and soft to palpation Other: epigastric tenderness Extremity Common normals: normal to inspection and full ROM Neuro Common normals: oriented x3, CN's II-XII intact bilaterally, moves all extremities and no focal motor deficits Psych Appearance: grossly normal Course Vital Signs Vital signs: Vital Signs Temperature 97.9 F 12/08/23 02:32 Pulse Rate 98 H 12/08/23 02:32 Respiratory Rate 18 12/08/23 02:32 Blood Pressure 133/83 12/08/23 02:32 Pulse Oximetry 99 12/08/23 02:32 Oxygen Delivery Method Room Air 12/08/23 02:32 Temperature 97.9 F 12/08/23 02:32 Pulse Rate 98 H 12/08/23 02:32 Respiratory Rate 18 12/08/23 02:32 Blood Pressure 133/83 12/08/23 02:32 Pulse Oximetry 99 12/08/23 02:32 Oxygen Delivery Method Room Air 12/08/23 02:32 MDM - Abdominal Pain MDM Narrative Medical decision making narrative: patient presents complaining of pancreatic flare. Describes recurrent vomiting at home. No nausea or vomiting here. Mild epigastric tendernesss. Labs with normal amylase and mild elevation of lipase. lipase and amylase have been higher in the past. abdominal xray without obstructive findings. possible ileus. Patient medicated for pain. Observed in the department for several hours and never required any nausea medication. Re evaluated and is feeling better. Discharged home to followup with her doctor Lab Data Labs: Lab Results 12/08/23 Range/Units 02:50 WBC 9.6 (4.0-11.0) 10^3/uL RBC 4.23 (4.20-5.40) 10^6/uL Hgb 14.3 (12.0-16.0) g/dL Hct 42.2 (36.0-48.0) % MCV 99.8 H (81.0-99.0) fL MCH 33.8 (26.7-34.0) pg MCHC 33.9 (29.9-35.2) g/dL RDW 12.8 (11.0-15.0) % Plt Count 264 (150-450) 10^3/uL MPV 9.5 (9.5-13.5) fL Neut % (Auto) 59.7 (43.0-75.0) % Lymph % (Auto) 28.0 (20.5-60.0) % [place] % (Auto) 8.5 (1.7-12.0) % Eos % (Auto) 2.0 (0.9-7.0) % Baso % (Auto) 0.9 (0.2-2.0) % Neut # (Auto) 5.7 (1.4-6.5) 10^3/uL Lymph # (Auto) 2.7 (1.2-3.8) 10^3/uL [place] # (Auto) 0.8 (0.3-0.8) 10^3/uL Eos # (Auto) 0.2 (0.0-0.7) 10^3/uL Baso # (Auto) 0.1 (0.0-0.1) 10^3/uL Abs Immat Gran (auto) 0.09 H (0.00-0.03) 10^3/uL Imm/Tot Granulo (auto) 0.9 H (0.0-0.5) % Sodium 137 (136-145) mmol/L Potassium 3.5 (3.5-5.1) mmol/L Chloride 104 (98-107) mmol/L Carbon Dioxide 25.0 (21.0-32.0) mmol/L Anion Gap 11.5 BUN 10.0 (7.0-18.0) mg/dL Creatinine 1.00 (0.55-1.02) mg/dL Est GFR ( Amer) >60 (>=60) Est GFR (Non-Af Amer) 58 L (>=60) BUN/Creatinine Ratio 10.0 Glucose 115 H (74-106) mg/dL Lactate 1.1 (0.4-2.0) mmol/L Calcium 9.8 (8.5-10.1) mg/dL Total Bilirubin 0.2 (0.2-1.0) mg/dL AST 14 L (15-37) U/L ALT 14 (14-59) U/L Alkaline Phosphatase 120 H (46-116) U/L Troponin I High Sens <4.0 L (4.0-51.3) pg/mL Total Protein 6.9 (6.4-8.2) g/dL Albumin 3.7 (3.4-5.0) g/dL Globulin 3.2 g/dL Albumin/Globulin Ratio 1.2 Amylase 114 (25-115) U/L Lipase 144.0 H (16.0-77.0) U/L Discharge Plan Discharge Chief Complaint: Abdominal Pain Clinical Impression: Pancreatitis Patient Disposition: Home, Self-Care Prescriptions / Home Meds: No Action Creon 24,000-76,000 -120,000 unit capsule,delayed release(DR/EC) 3 cap PO BIDWM famotidine [Pepcid] 20 mg tablet 20 mg PO BID PRN (Reason: heartburn) Print Language: Nigerien Instructions: Pancreatitis (ED) Additional Instructions: follow up with your doctor this week. Referrals: [facility] [Primary Care Provider] - 1 week
--- NOTE | 2023-12-08 03:06 | XR_ITS ---
The [address] [address] Patient Name: CHIOMA BOUDREAUX MRN: [id number] date: 1970 Sex: F Assigned Patient Location: ER Current Patient Location: ER Accession/Order Number: [id number] Exam Date: 12/08/2023 03:40 Report Date: 12/08/2023 04:23 At the request of: NICK COY Procedure: XR abdomen min 2V EXAM: XR abdomen min 2V HISTORY: abdominal pain COMPARISON: None. TECHNIQUE: 2 KV films submitted. FINDINGS: Included lung bases are clear. Right upper quadrant surgical clips likely from prior cholecystectomy. Correlate with surgical history. Air and mild stool within nondistended large bowel from cecum to rectosigmoid. There are a few nonspecific nondilated air-filled small bowel loops left midabdomen. No distended or air-filled small bowel loops are seen otherwise. No opaque calculi in the abdomen or pelvis. Degenerative disc disease in the lower lumbar spine. No acute osseous pathology or destructive bone process. Suggestion of some right hepatic lobe enlargement versus Jacqui lobe. XR/XR abdomen min 2V IMPRESSION: 1. Nonobstructive and nonspecific bowel gas pattern. Possible localized mild small bowel ileus on the left. No distended bowel loops. 2. Suggestion of right hepatic lobe enlargement versus Jacqui's morphology. Electronically authenticated by: FABIO TOMAS Date: 12/08/2023 04:23
[2023-12-08 03:16] LABS: Basophils Absolute Auto 0.1 10^3/uL (0.0-0.1); Basophils Percent Auto 0.9 % (0.2-2.0); Eosinophils Absolute Auto 0.2 10^3/uL (0.0-0.7); Hematocrit 42.2 % (36.0-48.0); Hemoglobin 14.3 g/dL (12.0-16.0); Immature Granulocytes Abs Auto 0.09 10^3/uL (0.00-0.03); Immature Granulocytes Pct Auto 0.9 % (0.0-0.5); Lymphocytes Absolute Auto 2.7 10^3/uL (1.2-3.8); Mean Corpuscular HGB Conc 33.9 g/dL (29.9-35.2); Mean Corpuscular Hemoglobin 33.8 pg (26.7-34.0); Mean Corpuscular Volume 99.8 fL (81.0-99.0); Mean Platelet Volume 9.5 fL (9.5-13.5); Monocytes Absolute Auto 0.8 10^3/uL (0.3-0.8); Monocytes Percent Auto 8.5 % (1.7-12.0); Neutrophils Absolute Auto 5.7 10^3/uL (1.4-6.5); Neutrophils Percent Auto 59.7 % (43.0-75.0); Platelet Count 264 10^3/uL (150-450); Red Blood Count 4.23 10^6/uL (4.20-5.40); Red Cell Distribution Width 12.8 % (11.0-15.0); White Blood Count 9.6 10^3/uL (4.0-11.0)
[2023-12-08] MEDS: 0.9 % SODIUM CHLORIDE 1,000 ML 999 ML IV (03:25)
[2023-12-08 03:29] LABS: Lactate/Lactic Acid 1.1 mmol/L (0.4-2.0)
[2023-12-08 03:32] LABS: Alanine Aminotransferase 14 U/L (14-59); Albumin Globulin Ratio 1.2; Albumin Level 3.7 g/dL (3.4-5.0); Alkaline Phosphatase 120 U/L (46-116); Amylase 114 U/L (25-115); Anion Gap 11.5; Aspartate Amino Transferase 14 U/L (15-37); Bilirubin Total 0.2 mg/dL (0.2-1.0); Calcium 9.8 mg/dL (8.5-10.1); Chloride 104 mmol/L (98-107); Estimated GFR (African America >60 (>=60); Estimated GFR (Non-African Ame 58 (>=60); Globulin 3.2 g/dL; Glucose 115 mg/dL (74-106); Potassium 3.5 mmol/L (3.5-5.1); Sodium 137 mmol/L (136-145); Total Protein 6.9 g/dL (6.4-8.2); Troponin I High Sensitivity <4.0 pg/mL (4.0-51.3)
[2023-12-08] MEDS: HYDROMORPHONE HCL 0.5 MG/0.5 ML SYRINGE IV (04:29)
== END 2023-12-08 05:43 | disposition home or self-care (01) ==
PROVIDERS: Emergency Provider Internal Medicine
DX: K85.90 Acute pancreatitis without necrosis or infection, unspecified (principal); F17.200 Nicotine dependence, unspecified, uncomplicated
CPT/HCPCS: 36415; 74019; 80053; 82150; 83605; 83690; 84484; 85025; 96361; 96374; 99284; J1170

== ENCOUNTER 2023-12-11 17:15 | Emergency (ER) | payer OTHER, SELFPAY ==
[2023-12-11] VITALS (11 sets, daily range): BP systolic 109–131; BP diastolic 55–95; PULSE 86–103; O2SAT 95–99; BMI 22.9
--- OUTSIDE RECORDS SUMMARY | 2023-12-11 17:23 | XMS_ITS | CCD ---
Author Organization [facility] Informat ion Partnership [employer]UT[employer] [facility] Care Team Providers Care Veterinary Surgeon Name Role Phone MagdalenaDarrickimani Unavailable LI DARRICKWA Unavailable Unavailable COPC SACHIN, GENERIC Unavailable Unavailable COPC SACHIN, GENERIC Unavailable Unavailable ALIRIO NEGRO Unavailable Unavailable LI KEWA Unavailable Unavailable JOANA MENDES Unavailable Unavailable LI, KEWA Unavailable Unavailable ERROL WALTON Unavailable Unavaila ble LIDARRICKWA Unavailable Unavailable KEERTHI NGUYEN Unavailable Unavailable COPC SACHIN, GENERIC Unavailable Unavailable KEERTHI NGUYEN Unavailable Unavailable LI, KEWA Unavailable Unavailable PHYSICIANS, [facility] Unavailable Unav ailable EUGENIA SHELTON Unavailable Unavailable PHYSICIANS, [facility] Unavailable Unav ailable Unavailable Primary Care Provider UnavailElie Benson Primary Care Provider Unavailable Primary Care Provider UnavailMarya Guajardo Unavailable NON STAFF Primary Care Provider UnavailDO Keaton Thompson Emergency Provider SALMA Amor Emergency Provider SALMA Lopez Emergency Provider [phone] Woodrow ALEXANDER, Pineda Espinal Unavailable [facility], Other Primary Care Provi mathew NON STAFF Primary Care Provider UnavailMD Agustin Varela Emergency Provider DR TRI HANSON Consulting Unavailable ARIC CHAUDHARY Attending Unavailable ARIC CHAUDHARY Admitting [facility] Unavailable ARIC CHAUDHARY Consulting Unavailable AGUSTIN MADRIGAL Consulting Unavailable YANNI FRASER Attending Unavailable YANNI FRASER Admitting [facility]available [facility] Primary Care Unavailable HEBERT MCPHERSON Consulting Unavailable AMINATA, DR RAJEEV Chan Consulting Unavailable AMINATA, DR RAJEEV Chan Attending Unavailable AMINATA, DR RAJEEV Chan Admitting [facility] Primary Care Unavailable JANNY ., ANKIT BOYKIN Consulting Unavailabl e IGGY ., MONIK Attending Unavailable IGGY ., MONIK Admitting Unavailable GRECHNY ., ANKIT BOYKIN [facility]available ANNELIESE, NICK Consulting Unavailable JANUSZ ., ARIC Consulting Unavailable AGUSTIN HIGHTOWER Consulting Unavailable SHANITA EUCEDATAN Consulting Unavailable AMINATA, DR RAJEEV Chan Consulting Unavailable BRIANNA, DR SHARON Silveira Attending [facility] REINECK, DR SHARON Silveira Admitting [facility] Unavailable BRIANNA, DR SHARON Silveira Consulting [facility] HANS ., NAT Consulting Unavailable HANS ., NAT Consulting Unavailable PAY ., DR MACEDO Attending Unavailable PAY ., DR MACEDO Admitting [facility] Primary Care Unavailable ANNELIESE, NICK Consulting Unavailable ANNELIESE, NICK Attending Unavailable ANNELIESE, NICK Admitting [facility] Primary Care Unavailable MILADIS BARRERA Consulting Unavailable JANUSZ ., ARIC Attending Unavailable JANUSZ ., ARIC Admitting Unavailable JANUSZ ., ARIC Consulting [facility] Primary Care Unavailable ION KRUSE Consulting Unavailable YANNI FRASER Attending Unavailable YANNI FRASER Admitting Unavailable JANNY ., ANKIT BOYKIN Consulting [facility] Unavailable LYNNE PERDOMO Consulting Unavailable JANUSZ ., ARIC Attending Unavailable JANSUZ ., ARIC Admitting [facility] Primary Care Unavailable JANUSZ ., ARIC Consulting Unavailable DIAB ., ELENITA Consulting Unavailable DIAB ., ELENITA Attending Unavailable DIAB ., ELENITA Admitting [facility]available [facility] Primary Care Unavailable PAY ., DR MACEDO Consulting Unavailable PAY ., DR MACEDO Attending Unavailable PAY ., DR MACEDO Admitting [facility]available [facility] Primary Care Unavailable ANNELIESE, NICK Consulting Unavailable ANNELIESE, NICK Attending Unavailable ANNELIESE, NICK Admitting [facility]available [facility] Primary Care Unavailable AGUSTIN HIGHTOWER Consulting Unavailable AMINATA, DR RAJEEV Chan Consulting Unavailable TANVIR ., DR GRANT Attending Unavailable TANVIR ., DR GRANT Admitting [facility]available [facility] Primary Care Unavailable TANVIR Herron, DR GRANT Consulting Unavailable NON STAFF Primary Care Provider Unavailabl e Saffle, SURFACE GRINDER Nicole Serrano Emergency Provider NON STAFF Primary Care Provider Unavailabl e Saffle, SURFACE GRINDER Nicole N Emergency Provider DO Rivera Lopez Emergency Provider [phone] SERVICES, [facility] Care Unava ilable BIRMINGHAM, VIC L Attending Unavailable [place] VIC L Attending Unavailable [place], VIC L Referring Unavailable SERVICES, [facility] Unava ilable SERVICES, [facility] Care Unava ilable TABITHA NEWELL Attending Unavailable OSIRIS, TABITHA Chan Attending Unavailable TABITHA NEWELL Referring Unavailable SERVICES, [facility] Care Unava ilable TABITHA NEWELL Attending Unavailable TABITHA NEWELL Referring Unavailable SERVICES, [facility] Unava ilable Services, [facility] Primary Care Provider MD Xiang Kellogg Emergency Provider [phone] Pineda Troy MD Unavailable [phone] [facility], Other Primary Care Provi mathew [...] Attending Unavailable SABRINA DEE Attending Unavailflorida e [facility], OTHER Primary Care Un available SABRINA DEE Referring Unavailabl e SELF, SELF Referring Unavailable [facility] OTHER Primary Care Un available SABRINA DEE Attending Unavailflorida Troy MD, Pineda T Unavailable Allergies Allergy Classification Reported Allergen(s) Allergy Type Date of Onset Reaction(s) Facility DOPamine Antagonists (1 source) Metoclopramide Drug Allergy 07-20-19 17 Anxiety [facility] Haloperidol (1 source) Haloperidol Drug Allergy 06-02-19 16 [facility] NSAIDs (1 source) Ibuprofen Drug Allergy 10-31-19 13 Hives, Swelling [facility] Opioid Agonists (2 sources) Morphine Drug Allergy 10-24-19 15 [facility] Penicillins (antibiotic) (1 source) Penicillins Drug Allergy 10-31-19 13 Swelling [facility] Work Phone: (20 sources) haloperidol; Translations: [HALOPERIDOL] Propensity to adverse reactions to drug 06-02-19 16 [facility] (20 sources) ibuprofen; Translations: [IBUPROFEN] Propensity to adverse reactions to drug 10-31-19 13 Hives, Swelling, Anaphylaxis [facility] (6 sources) metoclopramide; Translations: [METOCLOPRAMIDE HCL] Propensity to adverse reactions to drug 07-01-19 17 [facility] (6 sources) penicillin g; Translations: [PENICILLIN G] Propensity to adverse reactions to drug 07-25-19 15 Anaphylaxis [facility] (20 sources) traMADol; Translations: [TRAMADOL] Propensity to adverse reactions to drug 07-25-19 15 [facility] (20 sources) morphine; Translations: [MORPHINE] Drug Allergy 07-16-19 18 [facility] (4 sources) Enoxaparin Drug Allergy 08-23-19 20 Itching, Rash [place], [place] (2 sources) Haloperidol Drug Allergy 10-20-19 18 Swelling [place] (16 sources) Penicillins; Translations: [PENICILLINS] Propensity to adverse reactions to drug 10-31-19 13 Anaphylaxis, Swelling [place] (2 sources) Haloperidol; Translations: [Haldol] Drug Allergy 08-10-19 19 Unknown [facility] (14 sources) fentaNYL; Translations: [Fentanyl] Drug Allergy 09-13-19 21 [facility] (13 sources) Ketorolac; Translations: [KETOROLAC] Drug Allergy 06-13-19 21 [facility] (6 sources) Ketorolac Drug Allergy 12-17-19 22 Hives, Itching [facility] (9 sources) Metoclopramide Drug Allergy 07-01-19 17 Anxiety [facility] (1 source) Ibuprofen Drug Allergy 01-09-20 13 [facility] (1 source) Ketorolac Drug Allergy [facility] (1 source) Morphine Drug Allergy 08-10-19 19 [facility] (1 source) Penicillins Drug allergy (disorder) 01-09-20 13 [facility] (1 source) traMADol Drug Allergy 01-09-20 13 [facility] (4 sources) Penicillins Propensity to adverse reactions to drug 10-10-19 18 Anaphylaxis [facility] (2 sources) Ketorolac trometamol Propensity to adverse reactions to drug 12-17-19 22 Hives, Itching [facility] (1 source) Penicillins Propensity to adverse reactions to drug 10-31-19 13 Swelling [facility] Work Phone: (1 source) Haloperidol Drug Allergy 04-18-19 [facility] Repository (1 source) Ibuprofen Drug Allergy 04-18-19 [facility] Rep[facility] (1 source) Morphine Drug Allergy 04-18-19 [facility] Rep[facility] (1 source) Penicillins Drug allergy (disorder) 04-18-19 [facility] Rep[facility] (1 source) traMADol Drug Allergy 04-18-19 [facility] Repository Medications Current Medications Medication Drug Class(es) [...] 30 tablet 11 12/01/2019 05/11/2023 Discontinued amylase 248239 unt / lipase 14014 unt / protease 60171 unt delayed release oral capsule (18 sources) Start: 05-11-2023 take 3 capsules by mouth twice daily at mealtime Pancreatic enzymes (Creon) 55531-[address] units Cap DR Particles capsule Take 3 capsules by mouth 2 times daily with meals. 180 capsule 11 05/11/2023 Active Start: 12-16-2021 End: 05-11-2023 take 2 capsules by mouth three times daily at mealtime Pancreatic enzymes (Creon) 35494-[address] Particles capsule Take 2 [...] by mouth every week Ergocalciferol 1.25 MG (90531 UT) capsule Take 1 capsule by mouth once a week. 8 capsule 05/11/2023 Active Start: 01-28-2022 End: 03-19-2022 take 1 capsule by mouth every week ergocalciferol 1.25 MG (56214 UT) capsule Take 1 capsule by mouth [...] mg by mouth daily . 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 Basophil 0.05 k/uL Normal 0.00-0.20 [facility] Comment on above: Performed By: #### C P, CDP, LIP #### [address] [place] [address] Inoculator: Ion Jasso MD Abs.Imm.Granulocyte <0.03 Normal 0.00-0.30 [facility] Comment on above: Performed By: #### C P, CDP, LIP #### [address] [place] [address] Inoculator: Ion Jasso MD Abs.Neutrophil (Seg) 8.10 k/uL Normal 1.50-8.10 [facility] Comment on above: Performed By: #### C P, CDP, LIP #### [address] [place] [address] Inoculator: Ion Jasso MD Basophils/100 WBC (Bld) 0 % Normal 0-2 [facility] Comment on above: Performed By: #### C P, CDP, LIP #### [address] [place], [place] [address] Inoculator: Ion Jasso MD Eosinophils (Bld) [#/Vol] 0.05 10*3/uL Normal 0.00-0.44 [facility] Comment on above: Performed By: #### C P, CDP, LIP #### [address] [place], [facility]83 Inoculator: Ion Jasso MD Eosinophils/100 WBC (Bld) 0 % Low 1-4 [facility] Comment on above: Performed By: #### C P, CDP, LIP #### [address] [place] [id number] Inoculator: Ion Jasso MD Erythrocyte distribution width (RBC) [Ratio] 12.9 % Normal 11.8-14.4 [facility] Comment on above: Performed By: #### C P, CDP, LIP #### [facility] [address] [place] [address] Inoculator: Ion Jasso MD Hematocrit (Bld) [Volume fraction] 40.3 % Normal 36.3-47.1 [facility] Comment on above: Performed By: #### C P, CDP, LIP #### [facility] [address] [place] [address] Inoculator: Ion Jasso MD Hemoglobin (Bld) [Mass/Vol] 14.2 g/dL Normal 11.9-15.1 [facility] Comment on above: Performed By: #### C P, CDP, LIP #### [address] [place] [id number] Inoculator: Ion Jasso MD Immature granulocytes/100 WBC (Bld) 0 % Normal 0 [facility] Comment on above: Performed By: #### C P, CDP, LIP #### [address] [place] [address] Inoculator: Ion Jasso MD Lymphocytes (Bld) [#/Vol] 2.18 10*3/uL Normal 1.10-3.70 [facility] Comment on above: Performed By: #### C P, CDP, LIP #### [facility] [address] [place], [facility]83 Inoculator: Ion Jasso MD Lymphocytes/100 WBC (Bld) 19 % Low 24-43 [facility] Comment on above: Performed By: #### C P, CDP, LIP #### [facility] [address] [place] [address] Inoculator: Ion Jasso MD MCH (RBC) [Entitic mass] 33.8 pg High 25.2-33.5 [facility] Comment on above: Performed By: #### C P, CDP, LIP #### [address] [place], [place] [id number] Inoculator: Ion Jasso MD MCHC (RBC) [Mass/Vol] 35.2 g/dL High 28.4-34.8 [facility] Comment on above: Performed By: #### C P, CDP, LIP #### [address] [place], [facility]83 Inoculator: Ion Jasso MD MCV (RBC) [Entitic vol] 96.0 fL Normal 82.6-102.9 [facility] Comment on above: Performed By: #### C P, CDP, LIP #### [address] [place], [facility]83 Inoculator: Ion Jasso MD Monocytes (Bld) [#/Vol] 0.94 10*3/uL Normal 0.10-1.20 [facility] Comment on above: Performed By: #### C P, CDP, LIP #### [address] [place], [facility]83 Inoculator: Ion Jasso MD Monocytes/100 WBC (Bld) 8 % Normal 3-12 [facility] Comment on above: Performed By: #### C P, CDP, LIP #### [address] [place], [facility]83 Inoculator: Ion Jasso MD Neutrophil (Seg) 73 % High 36-65 [facility] Comment on above: Performed By: #### C P, CDP, LIP #### [address] [place] [address] Inoculator: Ion Jasso MD NRBC Automated 0.0 per 100 WBC Normal 0.0 [facility] Comment on above: Performed By: #### C P, CDP, LIP #### [address] [place], [facility]83 Inoculator: Ion Jasso MD Platelet mean volume (Bld) [Entitic vol] 9.4 fL Normal 8.1-13.5 [facility] Comment on above: Performed By: #### C P, CDP, LIP #### [facility] [address] [place], [facility]83 Inoculator: Ion Jasso MD Platelets (Bld) [#/Vol] 193 10*3/uL Normal 138-453 [facility] Comment on above: Performed By: #### C P, CDP, LIP #### [address] [place], [facility]83 Inoculator: Ion Jasso MD RBC (Bld) [#/Vol] 4.20 10*6/uL Normal 3.95-5.11 [facility] Comment on above: Performed By: #### C P, CDP, LIP #### [address] [place], [facility]83 Inoculator: Ion Jasso MD WBC (Bld) [#/Vol] 11.3 10*3/uL Normal 3.5-11.3 [facility] Comment on above: Performed By: #### C P, CDP, LIP #### [address] [place], [place] [address] Inoculator: Ion Jasso MD Comp Metabolic Profon 2023 Albumin [Mass/Vol] 4.4 g/dL Normal 3.5-5.2 [facility] Comment on above: Performed By: #### C P, CDP, LIP #### [facility] [address] [place] [address] Inoculator: Ion Jasso MD Albumin/Glob Ratio 1.9 Normal 1.0-2.5 [facility] Comment on above: Performed By: #### C P, CDP, LIP #### [facility] [address] [place], [place] [address] Inoculator: Ion Jasso MD Alkaline Phos 123 U/L High 35-104 [facility] Comment on above: Performed By: #### C P, CDP, LIP #### [facility] [address] [place], [place] [address] Inoculator: Ion Jasso MD ALT [Catalytic activity/Vol] 15 U/L Normal 5-33 [facility] Comment on above: Performed By: #### C P, CDP, LIP #### [facility] [address] [place], [place] [address] Inoculator: Ion Jasso MD Anion gap [Moles/Vol] 10 mmol/L Normal 9-17 [facility] Comment on above: Performed By: #### C P, CDP, LIP #### [facility] [address] [place], [place] [address]83 Inoculator: Ion Jasso MD AST [Catalytic activity/Vol] 21 U/L Normal <32 [facility] Comment on above: Performed By: #### C P, CDP, LIP #### [address] [place], [place] [id number] Inoculator: Ion Jasso MD Bilirubin [Mass/Vol] 0.3 mg/dL Normal 0.3-1.2 [facility] Comment on above: Performed By: #### C P, CDP, LIP #### [facility] [address] [place], [place] 197[address]83 Inoculator: Ion Jasso MD BUN/CRE Ratio 13 Normal 9-20 [facility] Comment on above: Performed By: #### C P, CDP, LIP #### [facility] [address] [place], [place] 3367883 Inoculator: Ion Jasso MD Calcium [Mass/Vol] 10.0 mg/dL Normal 8.6-10.4 [facility] Comment on above: Performed By: #### C P, CDP, LIP #### [facility] [address] [place], [place] [address] Inoculator: Ion Jasso MD Chloride [Moles/Vol] 104 mmol/L Normal 98-107 [facility] Comment on above: Performed By: #### C P, CDP, LIP #### [facility] [address] [place], [place] [address]18383 Inoculator: Ion Jasso MD CO2 [Moles/Vol] 24 mmol/L Normal 20-31 [facility] Comment on above: Performed By: #### C P, CDP, LIP #### [facility] [address] [place], [place] 1274183 Inoculator: Ion Jasso MD Creatinine [Mass/Vol] 0.8 mg/dL Normal 0.5-0.9 [facility] Comment on above: Performed By: #### C P, CDP, LIP #### [facility] [address] [place] [address] Inoculator: Ion Jasso MD GFR/1.73 sq M.predicted among non-blacks MDRD (S/P/Bld) [Vol rate/Area] 88 mL/min/{1.73_m2} Normal >60 [facility] Comment on above: Result Comment: These [...] #### C P, CDP, LIP #### [facility] [address] [place] [address] Inoculator: Ion Jasso MD Glucose [Mass/Vol] 126 mg/dL High 70-99 [facility] Comment on above: Performed By: #### C P, CDP, LIP #### [facility] [address] [place] [address] Inoculator: Ion Jasso MD Potassium [Moles/Vol] 3.5 mmol/L Low 3.7-5.3 [facility] Comment on above: Performed By: #### C P, CDP, LIP #### [facility] [address] [place], [place] 2095383 Inoculator: Ion Jasso MD Protein [Mass/Vol] 6.7 g/dL Normal 6.4-8.3 [facility] Comment on above: Performed By: #### C P, CDP, LIP #### [address] [place], [place] [address]83 Inoculator: Ion Jasso MD Sodium [Moles/Vol] 138 mmol/L Normal 135-144 [facility] Comment on above: Performed By: #### C P, CDP, LIP #### [address] [place], [place] [address]83 Inoculator: Ion Jasso MD Urea nitrogen [Mass/Vol] 10 mg/dL Normal 6-20 [facility] Comment on above: Performed By: #### C P, CDP, LIP #### [facility] [address] [place] [address] Dr. [place], [place] [address]83 Inoculator: Ion Jasso MD Lipaseon 1 Lipase [Catalytic activity/Vol] 141 U/L High 13-60 [facility] Comment on above: Performed By: #### C P, CDP, LIP #### [facility] [address] [place] [address] Inoculator: Ion Jasso MD UA w/Reflex Cultureon 2023 Bilirubin, SemiQt,Ur Negative Normal NEG [facility] Comment on above: Performed By: #### U AX, UMICAO #### [facility] [address] [place], [place] [address]383 Inoculator: Ion Jasso MD Blood, Urine Negative Normal NEG [facility] Comment on above: Performed By: #### U AX, UMICAO #### [facility] [address] [place], [place] 444[address]83 Inoculator: Ion Jasso MD Clarity (U) Clear Normal CLEAR [facility] Comment on above: Performed By: #### U AX, UMICAO #### [facility] [address] [place], [place] 569[address]83 Inoculator: Ion Jasso MD Color (U) Yellow Normal YEL [facility] Comment on above: Performed By: #### U AX, UMICAO #### [facility] [address] [place], [place] [address]83 Inoculator: Ion Jasso MD Glucose Ql (U) Negative Normal NEG [facility] Comment on above: Performed By: #### U AX, UMICAO #### [address] [place], [place] [address]226883 Inoculator: Ion Jasso MD Ketones Ql (U) Negative Normal NEG [facility] Comment on above: Performed By: #### U AX, UMICAO #### [facility] [address] [place], [place] [phone] Inoculator: Ion Jasso MD Leukocyte esterase Test strip Ql (U) Negative Normal NEG [facility] Comment on above: Performed By: #### U AX, UMICAO #### [facility] [address] [place], [place] [address]83 Inoculator: Ion Jasso MD Nitrite,Ur Negative Normal NEG [facility] Comment on above: Performed By: #### U AX, UMICAO #### [facility] [address] [place], [place] [phone] Inoculator: Ion Jasso MD PH,Ur 6.0 Normal 5.0-9.0 [facility] Comment on above: Performed By: #### U AX, UMICAO #### [facility] [address] [place], [place] [address]83 Inoculator: Ion Jasso MD Protein Ql (U) Negative Normal NEG [facility] Comment on above: Performed By: #### U AX, UMICAO #### [facility] [address] [place], [place] 2499783 Inoculator: Ion Jasso MD Spec. [place],Ur >1.030 High 1.010-1.02 0 [facility] Comment on above: Performed By: #### U AX, UMICAO #### [facility] [address] [place] [address] Dr. [place], [place] [address]83 Inoculator: Ion Jasso MD Urobilinogen,Ur Normal Normal 0.0-1.0 [facility] Comment on above: Performed By: #### U AX, UMICAO #### [address] [place], [place] [address]83 Inoculator: Ino Jasso MD Urinalysis,Microon 4 Bacteria TRACE Abnormal NONE [facility] Comment on above: Performed By: #### U AX, UMICAO #### [facility] [address] [place], [place] 379[address]83 Inoculator: Ion Jasso MD Epithelial cells LM Ql (Urine sed) 2 TO 5 Normal 0-25 [facility] Comment on above: Performed By: #### U AX, UMICAO #### [facility] [address] [place], [place] 2235683 Inoculator: Ion Jasso MD Urine RBC's 0 TO 2 Normal 0-2 [facility] Comment on above: Performed By: #### U AX, UMICAO #### [facility] [address] [place] [address] Inoculator: Ion Jasso MD Urine WBC's 0 TO 2 Normal 0-5 [facility] Comment on above: Performed By: #### U AX, UMICAO #### [facility] [address] [place] [address] Inoculator: Ion Jasso MD UPPER EUSon 09-08-2023 [facility] Gastroenterology Patient Name: Chioma Rainey Procedure Date: 09/08/2023 7:35 AM Date of : 1970 Admit Type: Outpatient Age: 53 Room: EUS Proc Room 01 Gender: Female Note Status: Finalized Attending MD: Sabrina Dee MD, MPH, [id number] Procedure: Upper EUS Indications: Chronic pancreatitis, Celiac [...] the (more content not included)... LAB, [facility] Radiology Study observation (narrative) [facility] Alanine aminotransferase [En zymatic activity/volume] in Serum or PlasmaOrdered By: Xiang Kellogg on 04-18-2023 ALT [Catalytic activity/Vol] 9 U/L Normal 7-52 [facility] Comment on above: Performed By: #### L IPASE, CBC, CMP, HS TROP #### [facility] [address] [place] [address] Albumin [Mass/volume] in Ser um or Plasma by Bromocresol green (BCG) dye binding methoOrdered By: Xiang Kellogg on 04-18-2023 Albumin BCG dye [Mass/Vol] 4.5 g/dL 3.5-5.7 [facility] Alkaline phosphatase [Enzyma tic activity/volume] in Serum or PlasmaOrdered By: Xiang Kellogg on 04-18-2023 ALP [Catalytic activity/Vol] 107 U/L High 34-104 [facility] Comment on above: Performed By: #### L IPASE, CBC, CMP, HS TROP #### [address] Amylase [Enzymatic activity/ volume] in Serum or PlasmaOrdered By: Xiang Kellogg on 04-18-2023 Amylase [Catalytic activity/Vol] 72 U/L Normal 29-103 [facility] Comment on above: Performed By: #### L IPASE, CBC, CMP, HS TROP #### [address] Aspartate aminotransferase [ Enzymatic activity/volume] in Serum or PlasmaOrdered By: Xiang Kellogg on 04-18-2023 AST [Catalytic activity/Vol] 14 U/L Normal 13-39 [facility] Comment on above: Performed By: #### L IPASE, CBC, CMP, HS TROP #### [address] Automated basophil %Ordered By: Xiang Kellogg on 04-18-2023 Basophils/100 WBC (Bld) 0.8 % Normal . [facility] Comment on above: Performed By: #### L IPASE, CBC, CMP, HS TROP #### [facility] [address] [place] [address] Automated basophil countOrde red By: Xiang Kellogg on 04-18-2023 Basophils (Bld) [#/Vol] 0.1 10*3/uL Normal 0.0-0.2 [facility] Comment on above: Result Comment: PERF ORMED BY: [address] [address] PATHOLOGIST DEPUTY SHERIFF GENERALIST/BAILIFF PAULA RODRIGUES M.D. Performed By: #### L IPASE, CBC, CMP, HS TROP #### [address] Automated blood monocyte cou ntOrdered By: Xiang Kellogg on 04-18-2023 Monocytes (Bld) [#/Vol] 0.6 10*3/uL Normal 0.0-0.8 [facility] Comment on above: Performed By: #### L IPASE, CBC, CMP, HS TROP #### [address] Automated eosinophil %Ordere d By: Xiang Kellogg on 04-18-2023 Eosinophils/100 WBC (Bld) 0.2 % Normal . [facility] Comment on above: Performed By: #### L IPASE, CBC, CMP, HS TROP #### [address] Automated eosinophil countOr dered By: Xiang Kellogg on 04-18-2023 Eosinophils (Bld) [#/Vol] 0.0 10*3/uL Normal 0.0-0.45 [facility] Comment on above: Performed By: #### L IPASE, CBC, CMP, HS TROP #### [address] Automated monocyte %Ordered By: Xiang Kellogg on 04-18-2023 Monocytes/100 WBC (Bld) 5.4 % Normal . [facility] Comment on above: Performed By: #### L IPASE, CBC, CMP, HS TROP #### [address] Automated neutrophil %Ordere d By: Xiang Kellogg on 04-18-2023 Neutrophils/100 WBC (Bld) 80.8 % Normal . [facility] Comment on above: Performed By: #### L IPASE, CBC, CMP, HS TROP #### [address] Basic Metabolic Panelon 04-09 Creatinine Clr Calc Pharmacy 64.32 Normal [facility] Comment on above: Performed By: #### L IPASE, CBC, CMP, HS TROP #### [facility] [address] [place] [address] GFR/1.73 sq M.predicted MDRD (S/P/Bld) [Vol rate/Area] mL/min/{1.73_m2} Normal [facility] Comment on above: Performed By: #### L IPASE, CBC, CMP, HS TROP #### [facility] [address] [place] [address] Bilirubin.direct [Mass/volum e] in Serum or PlasmaOrdered By: Xiang Kellogg on 04-18-2023 Bilirubin.direct [Mass/Vol] 0.00 mg/dL 0.03-0.18 [facility] Comment on above: If the DBIL is less than 0.1, IBIL is not able to becalculated. Bilirubin.total [Mass/volume ] in Serum or PlasmaOrdered By: Xiang Kellogg on 04-18-2023 Bilirubin [Mass/Vol] 0.3 mg/dL Normal 0.3-1.0 [facility] Comment on above: Performed By: #### L IPASE, CBC, CMP, HS TROP #### [facility] [address] [place] [address] CT abdomen pelvis wo conon 0 04-18-2023 CT abdomen pelvis wo con [facility] [place] [address] [place] [address] CT Scan Report Signed Patient: Chioma Arciniega MR#: [id number] : 1970 Acct:[id number] Age/Sex: 52 / F ADM Date: 04/18/23 Loc: ER Room: Type: [facility] ER Attending Dr: Copies to: Xiang [...] Rajeev Ulloa M.D.04/18/2023 5:07 PM Dictation Location: [place] [address] Transcribed By: [facility] 04/18/231706 Dictated By: Rajeev Ulloa II, MD 04/18/231700 Signed By: 04/18/231706 Normal [facility] Calcium [Mass/volume] in Ser um or PlasmaOrdered By: Xiang Kellogg on 04-18-2023 Calcium [Mass/Vol] 11.1 mg/dL High 8.6-10.[address] [facility] Comment on above: Performed By: #### L IPASE, CBC, CMP, HS TROP #### [address] Carbon dioxide, total [Moles /volume] in Serum or PlasmaOrdered By: Xiang Kellogg on 04-18-2023 CO2 [Moles/Vol] 30.2 mmol/L Normal 21.0-31.[address] [facility] Comment on above: Performed By: #### L IPASE, CBC, CMP, HS TROP #### [address] Chloride [Moles/volume] in S erika or PlasmaOrdered By: Xiang Kellogg on 04-18-2023 Chloride [Moles/Vol] 103 mmol/L Normal 98-107 [facility] Comment on above: Performed By: #### L IPASE, CBC, CMP, HS TROP #### [address] Complete Blood Count Auto Di ffon 04-18-2023 Mean Corpuscular HGB Conc 34.3 g/dL Normal 32.0-35.0 [facility] Comment on above: Performed By: #### L IPASE, CBC, CMP, HS TROP #### [address] Monocytes/100 WBC (Bld) 16.25 % Normal 0.00-20.00 [facility] Comment on above: Performed By: #### L IPASE, CBC, CMP, HS TROP #### [address] NRBC% 0.0 /100{WBC} Normal 0-0.5 [facility] Comment on above: Performed By: #### L IPASE, CBC, CMP, HS TROP #### [address] Creatinine [Mass/volume] in Serum or PlasmaOrdered By: Xiang Kellogg on 04-18-2023 Creatinine [Mass/Vol] 0.80 mg/dL Normal 0.60-1.20 [facility] Comment on above: Performed By: #### L IPASE, CBC, CMP, HS TROP #### [address] Erythrocyte distribution wid th [Ratio] by Automated countOrdered By: Xiang Kellogg on 04-18-2023 Erythrocyte distribution width (RBC) [Ratio] 13.4 % Normal 11.9-15.3 [facility] Comment on above: Performed By: #### L IPASE, CBC, CMP, HS TROP #### [facility] [address] [place] [address] [place] Erythrocytes [#/volume] in B lood by Automated countOrdered By: Xiang Kellogg on 04-18-2023 RBC (Bld) [#/Vol] 4.35 10*6/uL Normal 3.60-5.00 [facility] Comment on above: Performed By: #### L IPASE, CBC, CMP, HS TROP #### [facility] [address] [place] [address] [place] Ethanol [Mass/volume] in Ser um or PlasmaOrdered By: Xiang Kellogg on 04-18-2023 Ethanol [Mass/Vol] mg/dL Normal [facility] Comment on above: Performed By: #### L IPASE, CBC, CMP, HS TROP #### [facility] [address] [place] [address] Ethanol [Mass/Vol] TNP [facility] Comment on above: Test not performed Ethyl Alcohol Profileon 04-09 Percent Ethanol Not performed Normal [facility] Comment on above: Result Comment: PERF ORMED BY: [place] [address] PATHOLOGIST DEPUTY SHERIFF GENERALIST/BAILIFF PAULA RODRIGUES M.D. Performed By: #### L IPASE, CBC, CMP, HS TROP #### [facility] [address] [place] [address] [place] Glucose [Mass/volume] in Ser um or PlasmaOrdered By: Xiang Kellogg on 04-18-2023 Glucose [Mass/Vol] 108 mg/dL High 70-[address] [facility] Comment on above: ADA recommended refe rence rangeRandom Glucose Reference Range is dependent on time and content of last meal. Glucose of more than 200 mg/dL in a nonstressed, ambulatory subject supports the diagnosis of Diabetes Mellitus. Result Comment: [facility] Glucose Reference Range is dependent on time and content of last meal. Glucose of more than 200 mg/dL in a nonstressed, ambulatory subject supports the diagnosis of Diabetes Mellitus. ADA recommended reference range Performed By: #### L IPASE, CBC, CMP, HS TROP #### [address] Hematocrit [Volume Fraction] of Blood by Automated countOrdered By: Xiang Kellogg on 04-18-2023 Hematocrit (Bld) [Volume fraction] 41.6 % Normal 34.0-46.4 [facility] Comment on above: Performed By: #### L IPASE, CBC, CMP, HS TROP #### [address] Hemoglobin [Mass/volume] in BloodOrdered By: Xiang Kellogg on 04-18-2023 Hemoglobin (Bld) [Mass/Vol] 14.3 g/dL Normal 11.8-15.4 [facility] Comment on above: Performed By: #### L IPASE, CBC, CMP, HS TROP #### [address] Hepatic Panelon 04-18-2023 Albumin [Mass/Vol] 4.5 g/dL Normal 3.5-5.7 [facility] Comment on above: Performed By: #### L IPASE, CBC, CMP, HS TROP #### [address] Bilirubin,Indirect 0.3 mg/dL Normal [facility] Comment on above: Performed By: #### L IPASE, CBC, CMP, HS TROP #### [address] Bilirubin.indirect [Mass/Vol] 0.00 mg/dL Low 0.03-0.18 [facility] Comment on above: Result Comment: If t he DBIL is less than 0.1, IBIL is not able to be calculated. Performed By: #### L IPASE, CBC, CMP, HS TROP #### [address] Leukocytes [#/volume] correc aurelia for nucleated erythrocytes in Blood by Automated counOrdered By: Xiang Kellogg on 04-18-2023 WBC corrected for nucl RBC Auto (Bld) [#/Vol] 12.1 10*3/uL 3.8-11.6 [facility] Leukocytes [#/volume] in Blo od by Automated countOrdered By: Xiang Kellogg on 04-18-2023 WBC (Bld) [#/Vol] 12.1 10*3/uL High 3.8-11.6 [facility] Comment on above: Performed By: #### L IPASE, CBC, CMP, HS TROP #### [place] [address] [place] Lipase [Enzymatic activity/v olume] in Serum or PlasmaOrdered By: Xiang Kellogg on 04-18-2023 Lipase [Catalytic activity/Vol] 47.0 U/L Normal 11.0-82.0 [facility] Comment on above: Result Comment: PERF ORMED BY: [place] [address] PATHOLOGIST DEPUTY SHERIFF GENERALIST/BAILIFF PAULA RODRIGUES M.D. Performed By: #### L IPASE, CBC, CMP, HS TROP #### [place] [address] [place] Lymphocytes [#/volume] in Bl ood by Automated countOrdered By: Xiang Kellogg on 04-18-2023 Lymphocytes (Bld) [#/Vol] 1.6 10*3/uL Normal 1.00-4.8 [facility] Comment on above: Performed By: #### L IPASE, CBC, CMP, HS TROP #### [place] [address] [place] Lymphocytes/100 leukocytes i n Blood by Automated countOrdered By: Xiang Kellogg on 04-18-2023 Lymphocytes/100 WBC (Bld) 12.8 % Normal . [facility] Comment on above: Performed By: #### L IPASE, CBC, CMP, HS TROP #### [place] [address] [place] MCH [Entitic mass] by Automa aurelia countOrdered By: Xiang Kellogg on 04-18-2023 MCH (RBC) [Entitic mass] 32.7 pg Normal 24.7-34.3 [facility] Comment on above: Performed By: #### L IPASE, CBC, CMP, HS TROP #### [facility] [address] MCHC Auto (RBC) [Mass/Vol]Or dered By: Xiang Kellogg on 04-18-2023 MCHC (RBC) [Mass/Vol] 34.3 g/dL 32.0-35.0 [facility] MCV [Entitic volume] by Auto mated countOrdered By: Xiang Kellogg on 04-18-2023 MCV (RBC) [Entitic vol] 95.5 fL Normal 80-100 [facility] Comment on above: Performed By: #### L IPASE, CBC, CMP, HS TROP #### [facility] [address] [place] [address] Monocyte distribution width [Entitic volume] in Blood by AutomatedOrdered By: Xiang Kellogg on 04-18-2023 Monocyte distribution width Auto (Bld) [Entitic vol] 16.25 % 0.00-20.00 [facility] Neutrophils [#/volume] in Bl ood by Automated countOrdered By: Xiang Kellogg on 04-18-2023 Neutrophils (Bld) [#/Vol] 9.8 10*3/uL High 1.8-7.7 [facility] Comment on above: Performed By: #### L IPASE, CBC, CMP, HS TROP #### [facility] [address] [place] [address] No Panel InformationOrdered By: Xiang Kellogg on 04-18-2023 Estimated GFR (CKD-EPI) > 60.0 mL/Min [facility] Pharmacy Creatinine Clearance (Chem 64.32 [facility] Nucleated erythrocytes [Pres ence] in Blood by Automated countOrdered By: Xiang Kellogg on 04-18-2023 Nucleated RBC Auto Ql (Bld) 0.0 /100{WBC} 0-0.5 [facility] Platelet mean volume [Entiti c volume] in Blood by Automated countOrdered By: Xiang Kellogg on 04-18-2023 Platelet mean volume (Bld) [Entitic vol] 8.1 fL Normal 6.3-10.7 [facility] Comment on above: Performed By: #### L IPASE, CBC, CMP, HS TROP #### [facility] [address] [place] [address] Platelets [#/volume] in Bloo d by Automated countOrdered By: Xiang Kellogg on 04-18-2023 Platelets (Bld) [#/Vol] 227 10*3/uL Normal 150-450 [facility] Comment on above: Performed By: #### L IPASE, CBC, CMP, HS TROP #### [facility] [address] [place] [address] Potassium [Moles/volume] in Serum or PlasmaOrdered By: Xiang Kellogg on 04-18-2023 Potassium [Moles/Vol] 3.2 mmol/L Low 3.5-5.1 [facility] Comment on above: Performed By: #### L IPASE, CBC, CMP, HS TROP #### [address] Protein [Mass/volume] in Ser um or PlasmaOrdered By: Xiang Kellogg on 04-18-2023 Protein [Mass/Vol] 6.7 g/dL Normal 6.4-8.[address] [facility] Comment on above: Performed By: #### L IPASE, CBC, CMP, HS TROP #### [address] Serum globulin measurement b y calculation (mass/volume)Ordered By: Xiang Kellogg on 04-18-2023 Globulin (S) [Mass/Vol] 2.2 g/dL [facility] Comment on above: Performed By: #### L IPASE, CBC, CMP, HS TROP #### [facility] [address] [place] [address] Serum or plasma albumin/glob ulin mass ratioOrdered By: Xiang Kellogg on 04-18-2023 Albumin/Globulin [Mass ratio] 2.0 {ratio} [facility] Comment on above: Performed By: #### L IPASE, CBC, CMP, HS TROP #### [address] Serum or plasma anion gap de terminationOrdered By: Xiang Kellogg on 04-18-2023 Anion gap [Moles/Vol] 10.0 mmol/L Normal 6.0-15.0 [facility] Comment on above: Performed By: #### L IPASE, CBC, CMP, HS TROP #### [facility] [address] [place] [address] Serum or plasma non-glucuron idated bilirubin measurement (mass/volume)Ordered By: Xiang Kellogg on 04-18-2023 Bilirubin.indirect [Mass/Vol] 0.3 mg/dL [facility] Sodium [Moles/volume] in Ser um or PlasmaOrdered By: Xiang Kellogg on 04-18-2023 Sodium [Moles/Vol] 140 mmol/L Normal 136-[address] [facility] Comment on above: Performed By: #### L IPASE, CBC, CMP, HS TROP #### [facility] [address] [place] [address] Urea nitrogen [Mass/volume] in Serum or PlasmaOrdered By: Xiang Kellogg on 04-18-2023 Urea nitrogen [Mass/Vol] 7 mg/dL Normal 7-25 [facility] Comment on above: Performed By: #### L IPASE, CBC, CMP, HS TROP #### [facility] [address] [place] [address] CT abdomen pelvis w conon CT abdomen pelvis w con [facility] [place] [address] CT Scan Report Signed Patient: Chioma Arciniega MR#: [id number] : 1970 Acct:[id number] Age/Sex: 52 / F ADM Date: 04/11/23 Loc: ER Room: Type: [facility] ER Attending Dr: Copies to: Rivera [...] Nai Salazar M.D.04/12/2023 9:01 AM Dictation Location: [place] [address] Transcribed By: [facility] 04/12/23 0901 Dictated By: Nai Salazar MD 04/12/23 0856 Signed By: 04/12/23 0901 Normal [facility] Activated partial thrombopla stin time (aPTT) in platelet poor plasma by coagulation aOrdered By: Rivera Lopez on 04-11-2023 aPTT Coag (PPP) [Time] 23.3 s 25.1-36.5 [facility] Comment on above: A hematocrit value g reater than 55% may lead to inaccurate results in coagulation testing. Patients having hematocrit values >55% require a special collection tube for coagulation studies. Please contact the laboratory at [phone] for redraw instructions. Alanine aminotransferase [En zymatic activity/volume] in Serum or PlasmaOrdered By: Rivera Lopez on 04-11-2023 ALT [Catalytic activity/Vol] 13 U/L Normal 7-52 [facility] Comment on above: Performed By: #### L IPASE, CBC, CMP, HS TROP #### [facility] [address] [place] [address] Albumin [Mass/volume] in Ser um or Plasma by Bromocresol green (BCG) dye binding methoOrdered By: Rivera Lopez on 04-11-2023 Albumin BCG dye [Mass/Vol] 4.5 g/dL 3.5-5.7 [facility] Alkaline phosphatase [Enzyma tic activity/volume] in Serum or PlasmaOrdered By: Rivera Lopez on 04-11-2023 ALP [Catalytic activity/Vol] 111 U/L High 34-104 [facility] Comment on above: Performed By: #### L IPASE, CBC, CMP, HS TROP #### [address] Aspartate aminotransferase [ Enzymatic activity/volume] in Serum or PlasmaOrdered By: Rivera Lopez on 04-11-2023 AST [Catalytic activity/Vol] 17 U/L Normal 13-39 [facility] Comment on above: Performed By: #### L IPASE, CBC, CMP, HS TROP #### [facility] [address] [place] [address] Automated basophil %Ordered By: Rivera Lopez on 04-11-2023 Basophils/100 WBC (Bld) 0.4 % Normal . [facility] Comment on above: Performed By: #### L IPASE, CBC, CMP, HS TROP #### [facility] [address] [place] [address] Automated basophil countOrde red By: Rivera Lopez on 04-11-2023 Basophils (Bld) [#/Vol] 0.1 10*3/uL Normal 0.0-0.2 [facility] Comment on above: Result Comment: PERF ORMED BY: [place] [address] PATHOLOGIST DEPUTY SHERIFF GENERALIST/BAILIFF PAULA RODRIGUES M.D. Performed By: #### L IPASE, CBC, CMP, HS TROP #### [facility] [address] [place] [address] Automated blood monocyte cou ntOrdered By: Rivera Lopez on 04-11-2023 Monocytes (Bld) [#/Vol] 0.6 10*3/uL Normal 0.0-0.8 [facility] Comment on above: Performed By: #### L IPASE, CBC, CMP, HS TROP #### [facility] [address] [place] [address] Automated eosinophil %Ordere d By: Rivera Lopez on 04-11-2023 Eosinophils/100 WBC (Bld) 0.0 % Normal . [facility] Comment on above: Performed By: #### L IPASE, CBC, CMP, HS TROP #### [facility] [address] [place] [address] Automated eosinophil countOr dered By: Rivera Lopez on 04-11-2023 Eosinophils (Bld) [#/Vol] 0.0 10*3/uL Normal 0.0-0.45 [facility] Comment on above: Performed By: #### L IPASE, CBC, CMP, HS TROP #### [address] Automated erythrocytes count in urine sediment (number/area)Ordered By: Rivera Lopez on 04-11-2023 RBC Auto (Urine sed) [#/Area] 0-1 [HPF] 0-4 [facility] Automated leukocytes count i n urine sediment (number/area)Ordered By: Rivera Lopez on 04-11-2023 WBC Auto (Urine sed) [#/Area] 3-4 [HPF] 0-4 [facility] Automated monocyte %Ordered By: Rivera Lopez on 04-11-2023 Monocytes/100 WBC (Bld) 4.3 % Normal . [facility] Comment on above: Performed By: #### L IPASE, CBC, CMP, HS TROP #### [facility] [address] [place] [address] Automated neutrophil %Ordere d By: Rivera Lopez on 04-11-2023 Neutrophils/100 WBC (Bld) 87.2 % Normal . [facility] Comment on above: Performed By: #### L IPASE, CBC, CMP, HS TROP #### [facility] [address] Automated urine color determ inationOrdered By: Rivera Lopez on 04-11-2023 Color (U) Yellow Normal Yellow [facility] Comment on above: Order Comment: Name Collection Type:: Clean-Voided Midstream Performed By: #### L IPASE, CBC, CMP, HS TROP #### [facility] [address] Basic Metabolic Panelon Creatinine Clr Calc Pharmacy 59.83 Normal [facility] Comment on above: Performed By: #### L IPASE, CBC, CMP, HS TROP #### [address] GFR/1.73 sq M.predicted MDRD (S/P/Bld) [Vol rate/Area] mL/min/{1.73_m2} Normal [facility] Comment on above: Performed By: #### L IPASE, CBC, CMP, HS TROP #### [address] Bilirubin Test strip Ql (U)O rdered By: Rivera Lopez on 04-11-2023 Bilirubin Ql (U) Negative Negative [facility] Bilirubin.direct [Mass/volum e] in Serum or PlasmaOrdered By: Rivera Lopez on 04-11-2023 Bilirubin.direct [Mass/Vol] 0.00 mg/dL 0.03-0.18 [facility] Comment on above: If the DBIL is less than 0.1, IBIL is not able to becalculated. Bilirubin.total [Mass/volume ] in Serum or PlasmaOrdered By: Rivera Lopez on 04-11-2023 Bilirubin [Mass/Vol] 0.3 mg/dL Normal 0.3-1.0 [facility] Comment on above: Performed By: #### L IPASE, CBC, CMP, HS TROP #### [facility] [address] [place] [address] CBC AND AUTO DIFFon 04-11-19 ABSOLUTE BASOPHIL 0.1 X10E9/L Normal 0.0-0.2 [facility] Comment on above: Performed By: #### C BONNIE NIEVES, 3039-05, #### [facility] ([id number]) [address] [place] [address] ABSOLUTE NEUTROPHIL 12.5 X10E9/L High 1.5-6.6 [facility] Comment on above: Performed By: #### C BONNIE NIEVES, 3039-05, #### [facility] ([id number]) [address] [place] [address] Basophils/100 WBC (Bld) 0.4 % Normal [facility] Comment on above: Performed By: #### C BONNIE INEVES, 3039-05, #### [facility] ([id number]) [address] [place] [address] Eosinophils (Bld) [#/Vol] 0.1 10*3/uL Normal 0.0-0.4 [facility] Comment on above: Performed By: #### C BONNIE NIEVES, 3039-05, #### [facility] ([id number]) [address] [place] [address] Eosinophils/100 WBC (Bld) 0.5 % Normal [facility] Comment on above: Performed By: #### C BONNIE NIEVES, 3039-05, #### [facility] ([id number]) [address] [place] [address] Erythrocyte distribution width (RBC) [Ratio] 13.2 % Normal 11.5-15.0 [facility] Comment on above: Performed By: #### C BONNIE NIEVES, 3039-05, #### [facility] ([id number]) [address] [place] [address] Hematocrit (Bld) [Volume fraction] 44.6 % Normal 35-47 [facility] Comment on above: Performed By: #### C BONNIE NIEVES, 3039-05, #### [facility] ([id number]) [address] [place] [address] Hemoglobin (Bld) [Mass/Vol] 15.2 g/dL Normal 11.7-15.5 [facility] Comment on above: Performed By: #### Clara NIEVES CMP, 3039-05, #### [facility] ([id number]) [address] [place] [address] Lymphocytes (Bld) [#/Vol] 1.3 10*3/uL Normal 1.0-3.5 [facility] Comment on above: Performed By: #### Clara NIEVES CMP, 3039-05, #### [facility] ([id number]) [address] [place] [address] Lymphocytes/100 WBC (Bld) 8.7 % Normal [facility] Comment on above: Performed By: #### Clara NIEVES [facility], 3039-05, #### [facility] ([id number]) [address] [place] [address] MCH (RBC) [Entitic mass] 32.8 pg Normal 27-34 [facility] Comment on above: Performed By: #### Clara NIEVES CMP, 3039-05, #### [facility] ([id number]) [address] [place] [address] MCHC (RBC) [Mass/Vol] 34.1 g/dL Normal 32-36 [facility] Comment on above: Performed By: #### Clara NIEVES CMP, 3039-05, #### [facility] ([id number]) [address] [place] [address] 04232 MCV (RBC) [Entitic vol] 96 fL Normal 80-100 [facility] Comment on above: Performed By: #### Clara NIEVES, CMP, 3, #### [facility] ([id number]) [address] [place] [address] 16086 Monocytes (Bld) [#/Vol] 0.7 10*3/uL Normal 0-0.9 [facility] Comment on above: Performed By: #### Clara NIEVES, CMP, 3039-05, #### [facility] ([id number]) [address] [place] [address] 09775 Monocytes/100 WBC (Bld) 4.5 % Normal [facility] Comment on above: Performed By: #### Clara NIEVES, CMP, 3039-05, #### [facility] ([id number]) [address] [place] [address] 86463 Neutrophils/100 WBC (Bld) 85.9 % Normal [facility] Comment on above: Performed By: #### Clara NIEVES, CMP, 3039-05, #### [facility] ([id number]) [address] [place] [address] 85469 Platelet mean volume (Bld) [Entitic vol] 7.5 fL Normal 7-12 [facility] Comment on above: Performed By: #### Clara NIEVES, CMP, 3039-05, #### [facility] ([id number]) [address] [place] [address] 82453 Platelets (Bld) [#/Vol] 307 10*3/uL Normal 150-450 [facility] Comment on above: Performed By: #### Clara NIEVES, CMP, 3, #### [facility] ([id number]) [address] [place] [address] 75311 RBC COUNT 4.64 X10E12/L Normal 3.80-5.20 [facility] Comment on above: Performed By: #### C BCA, CMP, 0-3, #### [facility] ([id number]) [address] [place] [address] 32019 WBC (Bld) [#/Vol] 14.5 10*3/uL High 4.0-11.0 [facility] Comment on above: Performed By: #### C BCA, CMP, 3, #### [facility] ([id number]) [address] [place] [address] 76513 COMPREHENSIVE METABOLIC PANE Nimesh 04-11-2023 Albumin [Mass/Vol] 4.7 g/dL Normal 3.2-5.3 [facility] Comment on above: Performed By: #### C BCA, CMP, 3039-05, #### [facility] ([id number]) [address] [place] [address] 69656 ALP [Catalytic activity/Vol] 131 U/L High 39-130 [facility] Comment on above: Performed By: #### C BCA, CMP, 3039-05, #### [facility] ([id number]) [address] [place] [address] 39856 ALT [Catalytic activity/Vol] 18 U/L Normal 0-31 [facility] Comment on above: Performed By: #### C BCA, CMP, 3039-05, #### [facility] ([id number]) [address] [place] [address] 95005 Anion gap [Moles/Vol] 9 mmol/L Normal 5-15 [facility] Comment on above: Performed By: #### C BCA, CMP, 3, #### [facility] ([id number]) [address] [place] [address] 78439 AST [Catalytic activity/Vol] 23 U/L Normal 0-41 [facility] Comment on above: Performed By: #### C EZEQUIEL, CMP, 3039-05, #### [facility] ([id number]) [address] [place] [address] 69412 Bilirubin [Mass/Vol] 0.5 mg/dL Normal 0.3-1.2 [facility] Comment on above: Performed By: #### C BCA, CMP, 3039-05, #### [facility] ([id number]) [address] [place] [address] 79770 Calcium [Mass/Vol] 11.4 mg/dL High 8.5-10.5 [facility] Comment on above: Performed By: #### C EZEQUIEL, CMP, 3039-05, #### [facility] ([id number]) [address] [place] [address] 19044 Chloride [Moles/Vol] 99 mmol/L Normal 98-109 [facility] Comment on above: Performed By: #### C BCA, CMP, 3039-05, 07758-1 #### [facility] ([id number]) [address] [place] [address] 89879 CO2 [Moles/Vol] 28 mmol/L Normal 22-32 [facility] Comment on above: Performed By: #### C BCA, CMP, 3039-05, 84960-7 #### [facility] ([id number]) [address] [place] [address] 47616 Creatinine [Mass/Vol] 0.95 mg/dL Normal 0.40-1.00 [facility] Comment on above: Result Comment: METH OD TRACEABLE TO IDMS STANDARD Performed By: #### C EZEQUIEL, CMP, 3039-05, 01868-1 #### [facility] ([id number]) [address] [place] [address] [place] [address] GFR/1.73 sq M.predicted among non-blacks MDRD (S/P/Bld) [Vol rate/Area] 72 mL/min/{1.73_m2} Normal >59 [facility] Comment on above: Result Comment: Reported eGFR is based on the CKD-EPI 2020 equation that does not use a race coefficient. Performed By: #### C BONNIE NIEVES, 3039-05, #### [facility] ([id number]) [address] [place] [address] 99945 Glucose [Mass/Vol] 126 mg/dL High 65-99 [facility] Comment on above: Performed By: #### C BONNIE NIEVES, 3039-05, #### [facility] ([id number]) [address] [place] [address] 12003 Potassium [Moles/Vol] 3.2 mmol/L Low 3.5-5.0 [facility] Comment on above: Performed By: #### C EZEQUIEL [facility], 9 #### [facility] ([id number]) [address] [place] [address] 68872 Protein [Mass/Vol] 7.5 g/dL Normal 6.0-8.0 [facility] Comment on above: Performed By: #### C EZEQUIEL [facility], 3039-05, 41772-6 #### [facility] ([id number]) [address] [place] [address] 24130 Sodium [Moles/Vol] 136 mmol/L Normal 134-146 [facility] Comment on above: Performed By: #### C BONNIE NIEVES, 9 #### [facility] ([id number]) [address] [place] [address] 16932 Urea nitrogen [Mass/Vol] 6 mg/dL Normal 5-23 [facility] Comment on above: Performed By: #### C BCA, CMP, 3040-3, 28929-5 #### [facility] ([id number]) [address] [facility] [place] [address] CT ABDOMEN AND PELVIS W CONT on [...] Gentile MD on 04/11/2023 6:05 PM Normal [facility] Calcium [Mass/volume] in Ser um or PlasmaOrdered By: Rivera Lopez on 04-11-2023 Calcium [Mass/Vol] 10.3 mg/dL Normal 8.6-10.[address] [facility] Comment on above: Performed By: #### L IPASE, CBC, CMP, HS TROP #### [facility] [address] [place] [address] [facility] Carbon dioxide, total [Moles /volume] in Serum or PlasmaOrdered By: Rivera Lopez on 04-11-2023 CO2 [Moles/Vol] 26.9 mmol/L Normal 21.0-31.[address] [facility] Comment on above: Performed By: #### L IPASE, CBC, CMP, HS TROP #### [address] Chloride [Moles/volume] in S erika or PlasmaOrdered By: Rivera Lopez on 04-11-2023 Chloride [Moles/Vol] 103 mmol/L Normal 98-107 [facility] Comment on above: Performed By: #### L IPASE, CBC, CMP, HS TROP #### [address] Complete Blood Count Auto Di ffon 04-11-2023 Mean Corpuscular HGB Conc 33.2 g/dL Normal 32.0-35.0 [facility] Comment on above: Performed By: #### L IPASE, CBC, CMP, HS TROP #### [address] Monocytes/100 WBC (Bld) 17.01 % Normal 0.00-20.00 [facility] Comment on above: Performed By: #### L IPASE, CBC, CMP, HS TROP #### [address] NRBC% 0.0 /100{WBC} Normal 0-0.5 [facility] Comment on above: Performed By: #### L IPASE, CBC, CMP, HS TROP #### [address] Creatinine [Mass/volume] in Serum or PlasmaOrdered By: Rivera Lopez on 04-11-2023 Creatinine [Mass/Vol] 0.86 mg/dL Normal 0.60-1.20 [facility] Comment on above: Performed By: #### L IPASE, CBC, CMP, HS TROP #### [address] Dipstick and Microscopicon 0 04-11-2023 Appearance (U) Turbid Critically abnormal Clear [facility] Comment on above: Order Comment: Name Collection Type:: Clean-Voided Midstream Performed By: #### L IPASE, CBC, CMP, HS TROP #### [facility] [address] [place] [address] [place] Bacteria,Urine None Seen Normal None Seen [facility] Comment on above: Order Comment: Name Collection Type:: Clean-Voided Midstream Performed By: #### L IPASE, CBC, CMP, HS TROP #### [facility] [address] Bilirubin,Urine Negative Normal Negative [facility] Comment on above: Order Comment: Name Collection Type:: Clean-Voided Midstream Performed By: #### L IPASE, CBC, CMP, HS TROP #### [facility] [address] Glucose Ql (U) Normal Normal Normal [facility] Comment on above: Order Comment: Name Collection Type:: Clean-Voided Midstream Performed By: #### L IPASE, CBC, CMP, HS TROP #### [address] Hyaline Casts,Urine None Seen Normal 0-8 [facility] Comment on above: Order Comment: Name Collection Type:: Clean-Voided Midstream Result Comment: PERF ORMED BY: [place] [address] PATHOLOGIST DEPUTY SHERIFF GENERALIST/BAILIFF PAULA RODRIGUES M.D. Performed By: #### L IPASE, CBC, CMP, HS TROP #### [address] Ketones Ql (U) Negative Normal Negative [facility] Comment on above: Order Comment: Name Collection Type:: Clean-Voided Midstream Performed By: #### L IPASE, CBC, CMP, HS TROP #### [place] [address] [place] Leukocyte esterase Test strip Ql (U) Negative Normal Negative [facility] Comment on above: Order Comment: Name Collection Type:: Clean-Voided Midstream Performed By: #### L IPASE, CBC, CMP, HS TROP #### [place] [address] [place] Nitrite,Urine Negative Normal Negative [facility] Comment on above: Order Comment: Name Collection Type:: Clean-Voided Midstream Performed By: #### L IPASE, CBC, CMP, HS TROP #### [address] Occult Blood,Urine Negative Normal Negative [facility] Comment on above: Order Comment: Name Collection Type:: Clean-Voided Midstream Result Comment: PERF ORMED BY: [place] [address] PATHOLOGIST DEPUTY SHERIFF GENERALIST/BAILIFF PAULA RODRIGUES M.D. Performed By: #### L IPASE, CBC, CMP, HS TROP #### [address] Protein,Urine Negative Normal Negative [facility] Comment on above: Order Comment: Name Collection Type:: Clean-Voided Midstream Performed By: #### L IPASE, CBC, CMP, HS TROP #### [place] [address] [place] RBC LM.HPF (Urine sed) [#/Area] 0 /[HPF] Normal 0-4 [facility] Comment on above: Order Comment: Name Collection Type:: Clean-Voided Midstream Performed By: #### L IPASE, CBC, CMP, HS TROP #### [address] Specificy [place],Urine > 1.050 High 1.001-1.03 0 [facility] Comment on above: Order Comment: Name Collection Type:: Clean-Voided Midstream Performed By: #### L IPASE, CBC, CMP, HS TROP #### [place] [address] [place] Squamous Epithelial Cell,Urine 0-1 Normal 0-2 [facility] Comment on above: Order Comment: Name Collection Type:: Clean-Voided Midstream Performed By: #### L IPASE, CBC, CMP, HS TROP #### [address] Urobilinogen,Urine Normal Normal Normal [facility] Comment on above: Order Comment: Name Collection Type:: Clean-Voided Midstream Performed By: #### L IPASE, CBC, CMP, HS TROP #### [address] WBC,Urine 3-4 Normal 0-4 [facility] Comment on above: Order Comment: Name Collection Type:: Clean-Voided Midstream Performed By: #### L IPASE, CBC, CMP, HS TROP #### [address] ECG 12 lead ECGon 04-11-2023 ECG 12 lead ECG [facility] [place] [address] [place] [address] Electrocardiograph Report Signed Patient: Chioma Arciniega MR#: [id number] : 1970 Acct:[id number] Age/Sex: 52 / F ADM Date: 04/11/23 Loc: ER Room: Type: [facility] ER Attending Dr: Ordering Provider: Rivera [...] significant change was found Confirmed by Rivera Lopze DO ([id number]) on 04/12/2023 12:05:50 AM Referred By: Electronically Signed By:Rivera Lopez DO Transcribed By: MUS Signed By Rivera Lopze DO 4 0005 Normal [facility] Erythrocyte distribution wid th [Ratio] by Automated countOrdered By: Rivera Lopez on 04-11-2023 Erythrocyte distribution width (RBC) [Ratio] 13.6 % Normal 11.9-15.3 [facility] Comment on above: Performed By: #### L IPASE, CBC, CMP, HS TROP #### [address] Erythrocytes [#/volume] in B lood by Automated countOrdered By: Rivera Lopez on 04-11-2023 RBC (Bld) [#/Vol] 4.27 10*6/uL Normal 3.60-5.00 [facility] Comment on above: Performed By: #### L IPASE, CBC, CMP, HS TROP #### [facility] [address] Glucose [Mass/volume] in Ser um or PlasmaOrdered By: Rivera Lopez on 04-11-2023 Glucose [Mass/Vol] 121 mg/dL High 70-[address] [facility] Comment on above: ADA recommended refe rence rangeRandom Glucose Reference Range is dependent on time and content of last meal. Glucose of more than 200 mg/dL in a nonstressed, ambulatory subject supports the diagnosis of Diabetes Mellitus. Result Comment: [facility] Glucose Reference Range is dependent on time and content of last meal. Glucose of more than 200 mg/dL in a nonstressed, ambulatory subject supports the diagnosis of Diabetes Mellitus. ADA recommended reference range Performed By: #### L IPASE, CBC, CMP, HS TROP #### [address] Hematocrit [Volume Fraction] of Blood by Automated countOrdered By: Rivera Lopez on 04-11-2023 Hematocrit (Bld) [Volume fraction] 41.3 % Normal 34.0-46.4 [facility] Comment on above: Performed By: #### L IPASE, CBC, CMP, HS TROP #### [facility] [address] Hemoglobin [Mass/volume] in BloodOrdered By: Rivera Lopez on 04-11-2023 Hemoglobin (Bld) [Mass/Vol] 13.7 g/dL Normal 11.8-15.4 [facility] Comment on above: Performed By: #### L IPASE, CBC, CMP, HS TROP #### [facility] [address] Hepatic Panelon 04-11-2023 Albumin [Mass/Vol] 4.5 g/dL Normal 3.5-5.7 [facility] Comment on above: Performed By: #### L IPASE, CBC, CMP, HS TROP #### [facility] [address] Bilirubin,Indirect 0.3 mg/dL Normal [facility] Comment on above: Performed By: #### L IPASE, CBC, CMP, HS TROP #### [facility] [address] Bilirubin.indirect [Mass/Vol] 0.00 mg/dL Low 0.03-0.18 [facility] Comment on above: Result Comment: If t he DBIL is less than 0.1, IBIL is not able to be calculated. Performed By: #### L IPASE, CBC, CMP, HS TROP #### [facility] [address] INR in Platelet poor plasma by Coagulation assayOrdered By: Rivera Lopez on 04-11-2023 INR Coag (PPP) [Relative time] 1.0 {INR} Normal [facility] Comment on above: INR Therapeutic Rang e [...] L IPASE, CBC, CMP, HS TROP #### [facility] [address] Ketones Auto test strip (U) [Mass/Vol]Ordered By: Rivera Lopez on 04-11-2023 Ketones (U) [Mass/Vol] Negative Negative [facility] LIPASEon 04-11-2023 Lipase [Catalytic activity/Vol] 49 U/L High 17-40 [facility] Comment on above: Performed By: #### C BCA, CMP, 3040-3, 69821-0 #### [facility] ([id number]) [address] [facility], [place] [address] Laboratory - UrinalysisOrder ed By: Rivera Lopez on 04-11-2023 Hyaline casts LM Ql (Urine sed) None seen [LPF] 0-8 [facility] Leukocytes [#/volume] correc aurelia for nucleated erythrocytes in Blood by Automated counOrdered By: Rivera Lopez on 04-11-2023 WBC corrected for nucl RBC Auto (Bld) [#/Vol] 13.9 10*3/uL 3.8-11.6 [facility] Leukocytes [#/volume] in Blo od by Automated countOrdered By: Rivera Lopez on 04-11-2023 WBC (Bld) [#/Vol] 13.9 10*3/uL High 3.8-11.6 [facility] Comment on above: Performed By: #### L IPASE, CBC, CMP, HS TROP #### [facility] [address] Lipase [Enzymatic activity/v olume] in Serum or PlasmaOrdered By: Rivera Lopez on 04-11-2023 Lipase [Catalytic activity/Vol] 26.0 U/L Normal 11.0-82.0 [facility] Comment on above: Result Comment: PERF ORMED BY: [place] [address] PATHOLOGIST DEPUTY SHERIFF GENERALIST/BAILIFF PAULA RODRIGUES M.D. Performed By: #### L IPASE, CBC, CMP, HS TROP #### [facility] [address] [place] [address] [place] Lymphocytes [#/volume] in Bl ood by Automated countOrdered By: Rivera Lopez on 04-11-2023 Lymphocytes (Bld) [#/Vol] 1.1 10*3/uL Normal 1.00-4.8 [facility] Comment on above: Performed By: #### L IPASE, CBC, CMP, HS TROP #### [facility] [address] [place] [address] [place] Lymphocytes/100 leukocytes i n Blood by Automated countOrdered By: Rivera Lopez on 04-11-2023 Lymphocytes/100 WBC (Bld) 8.1 % Normal . [facility] Comment on above: Performed By: #### L IPASE, CBC, CMP, HS TROP #### [facility] [address] MAGNESIUMon 04-11-2023 Magnesium [Mass/Vol] 2.0 mg/dL Normal 1.8-2.6 [facility] Comment on above: Performed By: #### C BCA, CMP, 3040-3, 14660-2, 97899-3, 52157- 9 #### [facility] ([id number]) [address] [place] [address], [place] [address] MCH [Entitic mass] by Automa aurelia countOrdered By: Rivera Lopez on 04-11-2023 MCH (RBC) [Entitic mass] 32.2 pg Normal 24.7-34.3 [facility] Comment on above: Performed By: #### L IPASE, CBC, CMP, HS TROP #### [address] MCHC Auto (RBC) [Mass/Vol]Or dered By: Rivera Lopez on 04-11-2023 MCHC (RBC) [Mass/Vol] 33.2 g/dL 32.0-35.0 [facility] MCV [Entitic volume] by Auto mated countOrdered By: Rivera Lopez on 04-11-2023 MCV (RBC) [Entitic vol] 96.8 fL Normal 80-100 [facility] Comment on above: Performed By: #### L IPASE, CBC, CMP, HS TROP #### [facility] [address] [place] [address] [place] Monocyte distribution width [Entitic volume] in Blood by AutomatedOrdered By: Rivera Lopez on 04-11-2023 Monocyte distribution width Auto (Bld) [Entitic vol] 17.01 % 0.00-20.00 [facility] Neutrophils [#/volume] in Bl ood by Automated countOrdered By: Rivera Lopez on 04-11-2023 Neutrophils (Bld) [#/Vol] 12.1 10*3/uL High 1.8-7.7 [facility] Comment on above: Performed By: #### L IPASE, CBC, CMP, HS TROP #### [facility] [address] Nitrite Test strip Ql (U)Ord ered By: Rivera Lopez on 04-11-2023 Nitrite Ql (U) Negative Negative [facility] No Panel InformationOrdered By: Rivera Lopez on 04-11-2023 Estimated GFR (CKD-EPI) > 60.0 mL/Min [facility] Creatinine Clearance (Chem 59.83 [facility] Nucleated erythrocytes [Pres ence] in Blood by Automated countOrdered By: Rivera Lopez on 04-11-2023 Nucleated RBC Auto Ql (Bld) 0.0 /100{WBC} 0-0.5 [facility] Partial Thromboplastin Timeo n 04-11-2023 aPTT Coag (Bld) [Time] 23.3 s Low 25.1-36.5 [facility] Comment on above: Result Comment: A he matocrit value greater than 55% may lead to inaccurate results in coagulation testing. Patients having hematocrit values >55% require a special collection tube for coagulation studies. Please contact the laboratory at [phone] for redraw instructions. PERFORMED BY: [place] [address] PATHOLOGIST DEPUTY SHERIFF GENERALIST/BAILIFF PAULA RODRIGUES M.D. Performed By: #### L IPASE, CBC, CMP, HS TROP #### [facility] [address] [place] [address] Platelet mean volume [Entiti c volume] in Blood by Automated countOrdered By: Rivera Lopez on 04-11-2023 Platelet mean volume (Bld) [Entitic vol] 7.7 fL Normal 6.3-10.7 [facility] Comment on above: Performed By: #### L IPASE, CBC, CMP, HS TROP #### [facility] [address] Platelets [#/volume] in Bloo d by Automated countOrdered By: Rivera Lopez on 04-11-2023 Platelets (Bld) [#/Vol] 262 10*3/uL Normal 150-450 [facility] Comment on above: Performed By: #### L IPASE, CBC, CMP, HS TROP #### [facility] [address] Potassium [Moles/volume] in Serum or PlasmaOrdered By: Rivera Lopez on 04-11-2023 Potassium [Moles/Vol] 4.0 mmol/L Normal 3.5-5.1 [facility] Comment on above: Performed By: #### L IPASE, CBC, CMP, HS TROP #### [address] Protein Auto test strip (U) [Mass/Vol]Ordered By: Rivera Lopez on 04-11-2023 Protein (U) [Mass/Vol] Negative Negative [facility] Protein [Mass/volume] in Ser um or PlasmaOrdered By: Rivera Lopez on 04-11-2023 Protein [Mass/Vol] 6.9 g/dL Normal 6.4-8.[address] [facility] Comment on above: Performed By: #### L IPASE, CBC, CMP, HS TROP #### [address] Prothrombin time (PT)Ordered By: Rivera Lopez on 04-11-2023 PT Coag (PPP) [Time] 11.2 s Normal 9.0-12.9 [facility] Comment on above: A hematocrit value g reater than 55% may lead to inaccurate results in coagulation testing. Patients having hematocrit values >55% require a special collection tube for coagulation studies. Please contact the laboratory at [phone] for redraw instructions. Result Comment: A he matocrit value greater than 55% may lead to inaccurate results in coagulation testing. Patients having hematocrit values >55% require a special collection tube for coagulation studies. Please contact the laboratory at [phone] for redraw instructions. Performed By: #### L IPASE, CBC, CMP, HS TROP #### [address] Serum globulin measurement b y calculation (mass/volume)Ordered By: Rivera Lopez on 04-11-2023 Globulin (S) [Mass/Vol] 2.4 g/dL [facility] Comment on above: Performed By: #### L IPASE, CBC, CMP, HS TROP #### [address] Serum or plasma albumin/glob ulin mass ratioOrdered By: Rivera Lopez on 04-11-2023 Albumin/Globulin [Mass ratio] 1.9 {ratio} [facility] Comment on above: Performed By: #### L IPASE, CBC, CMP, HS TROP #### [address] Serum or plasma anion gap de terminationOrdered By: Rivera Lopez on 04-11-2023 Anion gap [Moles/Vol] 14.1 mmol/L Normal 6.0-15.0 [facility] Comment on above: Performed By: #### L IPASE, CBC, CMP, HS TROP #### [address] Serum or plasma non-glucuron idated bilirubin measurement (mass/volume)Ordered By: Rivera Lopez on 04-11-2023 Bilirubin.indirect [Mass/Vol] 0.3 mg/dL [facility] Sodium [Moles/volume] in Ser um or PlasmaOrdered By: Rivera Lopez on 04-11-2023 Sodium [Moles/Vol] 140 mmol/L Normal 136-[address] [facility] Comment on above: Performed By: #### L IPASE, CBC, CMP, HS TROP #### [address] Specific gravity Auto test s trip (U) [Rel density]Ordered By: Rivera Lopez on 04-11-2023 Specific gravity (U) [Rel density] > 1.050 1.001-1.03 0 [facility] Squamous epithelial cells de tection in urine sediment by light microscopyOrdered By: Rivera Matoszi on 04-11-2023 Epithelial cells.squamous LM Ql (Urine sed) 0-1 [HPF] 0-2 [facility] URN MACROSCOPIC NURon 2023 BILIRUBIN JERE Negative Normal NEG [facility] Comment on above: Performed By: #### C BCA, CMP, 3040-3, 37001-5, 60302-9, 21219- 9 #### [facility] ([id number]) [address] [place] [address] BLOOD/HGB JERE Negative Normal [facility] Comment on above: Performed By: #### C BCA, CMP, 3040-3, 22114-2, 25549-8, 16977- 9 #### [facility] ([id number]) [address] [place] [address] GLUCOSE JERE Negative Normal [facility] Comment on above: Performed By: #### C BCA, CMP, 3040-3, 70557-4, 66562-1, 23961- 9 #### [facility] ([id number]) [address] [place] [address] 49983 KETONES JERE Negative Normal NEG [facility] Comment on above: Performed By: #### C BCA, CMP, 3040-3, 97423-0, 51425-7, 16721- 9 #### [facility] ([id number]) [address] [place] [address] 64149 LEUKOCYTE ESTERASE JERE Negative Normal NEG [facility] Comment on above: Performed By: #### C BCA, CMP, 3040-3, 67224-5, 93446-4, 29415- 9 #### [facility] ([id number]) [address] [place] [address] 72560 NITRITE JERE Negative Normal NEG [facility] Comment on above: Performed By: #### C BCA, CMP, 3040-3, 46438-2, 14042-9, 69403- 9 #### [facility] ([id number]) [address] [place] [address] 22304 PH JERE >=9.0 Normal 5.0-8.5 [facility] Comment on above: Performed By: #### C BCA, CMP, 3040-3, 53063-0, 90468-8, 88396- 9 #### [facility] ([id number]) [address] [place] [address] 39971 PROTEIN JERE Negative Normal NEG [facility] Comment on above: Performed By: #### C BCA, CMP, 3040-3, 01418-3, 54672-3, 91516- 9 #### [facility] ([id number]) [address] [place] [address] 56404 SPECIFIC GRAVITY JERE 1.015 Normal 1.003-[address] [place] [address] Comment on above: Performed By: #### C BCA, CMP, 3040-3, 41560-5, 77561-6, 37464- 9 #### [facility] ([id number]) [address] [place] [address] 73250 UROBILINOGEN JERE 0.2 eu/dL Normal <1.1 [facility] Comment on above: Performed By: #### C BCA, CMP, 3040-3, 35732-0, 94754-0, 96788- 9 #### [facility] ([id number]) [address] [place] [address] 77873 Urea nitrogen [Mass/volume] in Serum or PlasmaOrdered By: Rivera Lopez on 04-11-2023 Urea nitrogen [Mass/Vol] 5 mg/dL Low 7-25 [facility] Comment on above: Performed By: #### L IPASE, CBC, CMP, HS TROP #### [facility] [address] Urine bacteria detection by automated methodOrdered By: Rivera Lopez on 04-11-2023 Bacteria Auto Ql (U) None seen None Seen [facility] Urine clarity by refractomet ry automatedOrdered By: Rivera Lopez on 04-11-2023 Clarity Refractometry automated (U) Turbid Clear [facility] Urine glucose measurement by automated test strip (mass/volume)Ordered By: Rivera Lopez on 04-11-2023 Glucose Auto test strip (U) [Mass/Vol] Normal mg/dL Normal [facility] Urine hemoglobin detection b y automated test stripOrdered By: Rivera Lopez on 04-11-2023 Hemoglobin Auto test strip Ql (U) Negative Negative [facility] Urine leukocyte esterase det ection by automated test stripOrdered By: Rivera Lopez on 04-11-2023 Leukocyte esterase Auto test strip Ql (U) Negative Negative [facility] Urine pH measurement by auto mated test stripOrdered By: Rivera Lopez on 04-11-2023 pH (U) 8.0 [pH] Normal 5.0-9.0 [facility] Comment on above: Order Comment: Name Collection Type:: Clean-Voided Midstream Performed By: #### L IPASE, CBC, CMP, HS TROP #### [facility] [address] [place] [address] Urobilinogen Auto test strip (U) [Mass/Vol]Ordered By: Rivera Lopez on 04-11-2023 Urobilinogen (U) [Mass/Vol] Normal mg/dL Normal [facility] Alanine aminotransferase [En zymatic activity/volume] in Serum or PlasmaOrdered By: Nicole Posadas on 04-02-2023 ALT [Catalytic activity/Vol] 11 U/L Normal 7-52 [facility] Comment on above: Performed By: #### L IPASE, CBC, CMP, HS TROP #### [facility] [address] [place] [address] [place] Albumin [Mass/volume] in Ser um or Plasma by Bromocresol green (BCG) dye binding methoOrdered By: Nicole Posadas on 04-02-2023 Albumin BCG dye [Mass/Vol] 4.2 g/dL 3.5-5.7 [facility] Alkaline phosphatase [Enzyma tic activity/volume] in Serum or PlasmaOrdered By: Nicole Posadas on 04-02-2023 ALP [Catalytic activity/Vol] 101 U/L Normal 34-104 [facility] Comment on above: Performed By: #### L IPASE, CBC, CMP, HS TROP #### [address] Aspartate aminotransferase [ Enzymatic activity/volume] in Serum or PlasmaOrdered By: Nicole Posadas on 04-02-2023 AST [Catalytic activity/Vol] 21 U/L Normal 13-39 [facility] Comment on above: Performed By: #### L IPASE, CBC, CMP, HS TROP #### [address] Automated basophil %Ordered By: Nicole Posadas on 04-02-2023 Basophils/100 WBC (Bld) 0.2 % Normal . [facility] Comment on above: Performed By: #### L IPASE, CBC, CMP, HS TROP #### [address] Automated basophil countOrde red By: Nicole Posadas on 04-02-2023 Basophils (Bld) [#/Vol] 0.0 10*3/uL Normal 0.0-0.2 [facility] Comment on above: Result Comment: PERF ORMED BY: [place] [address] PATHOLOGIST DEPUTY SHERIFF GENERALIST/BAILIFF PAULA RODRIGUES M.D. Performed By: #### L IPASE, CBC, CMP, HS TROP #### [address] Automated blood monocyte cou ntOrdered By: Nicole Posadas on 04-02-2023 Monocytes (Bld) [#/Vol] 0.6 10*3/uL Normal 0.0-0.8 [facility] Comment on above: Performed By: #### L IPASE, CBC, CMP, HS TROP #### [address] Automated eosinophil %Ordere d By: Nicole Posadas on 04-02-2023 Eosinophils/100 WBC (Bld) 1.7 % Normal . [facility] Comment on above: Performed By: #### L IPASE, CBC, CMP, HS TROP #### [address] Automated eosinophil countOr dered By: Nicole Posadas on 04-02-2023 Eosinophils (Bld) [#/Vol] 0.1 10*3/uL Normal 0.0-0.45 [facility] Comment on above: Performed By: #### L IPASE, CBC, CMP, HS TROP #### [address] Automated monocyte %Ordered By: Nicole Posadas on 04-02-2023 Monocytes/100 WBC (Bld) 9.8 % Normal . [facility] Comment on above: Performed By: #### L IPASE, CBC, CMP, HS TROP #### [address] Automated neutrophil %Ordere d By: Nicole Posadas on 04-02-2023 Neutrophils/100 WBC (Bld) 59.1 % Normal . [facility] Comment on above: Performed By: #### L IPASE, CBC, CMP, HS TROP #### [address] Automated urine color determ inationOrdered By: Nicole Posadas on 04-02-2023 Color (U) Yellow Normal Yellow [facility] Comment on above: Order Comment: Name Collection Type:: Clean-Voided Midstream Performed By: #### U A #### [address] Bilirubin Test strip Ql (U)O rdered By: Nicole Posadas on 04-02-2023 Bilirubin Ql (U) Negative Negative [facility] Bilirubin.total [Mass/volume ] in Serum or PlasmaOrdered By: Nicole Posadas on 04-02-2023 Bilirubin [Mass/Vol] 0.3 mg/dL Normal 0.3-1.0 [facility] Comment on above: Performed By: #### L IPASE, CBC, CMP, HS TROP #### [facility] [address] [place] [address] [facility] CT abdomen pelvis w conon CT abdomen pelvis w con [facility] [place] [address] [place] [address] CT Scan Report Signed Patient: Cihoma Arciniega MR#: [id number] : 1970 Acct:[id number] Age/Sex: 52 / F ADM Date: 04/02/23 Loc: ER Room: Type: [facility] ER Attending Dr: Copies to: Nicole [...] Paredes Jr., Antoinette04/02/2023 6:15 PM Dictation Location: [place] [address] Transcribed By: [facility] 04/02/231814 Dictated By: Eyal Paredes Jr, DO 04/02/231808 Signed By: 04/02/231814 Normal [facility] Calcium [Mass/volume] in Ser um or PlasmaOrdered By: Nicole Posadas on 04-02-2023 Calcium [Mass/Vol] 9.7 mg/dL Normal 8.6-10.[address] [facility] Comment on above: Performed By: #### L IPASE, CBC, CMP, HS TROP #### [address] Carbon dioxide, total [Moles /volume] in Serum or PlasmaOrdered By: Nicole Posadas on 04-02-2023 CO2 [Moles/Vol] 26.3 mmol/L Normal 21.0-31.[address] [facility] Comment on above: Performed By: #### L IPASE, CBC, CMP, HS TROP #### [facility] [address] [place] [address] [place] Chloride [Moles/volume] in S erika or PlasmaOrdered By: Nicole Posadas on 04-02-2023 Chloride [Moles/Vol] 106 mmol/L Normal 98-107 [facility] Comment on above: Performed By: #### L IPASE, CBC, CMP, HS TROP #### [facility] [address] [place] [address] [place] Complete Blood Count Auto Di ffon 04-02-2023 Mean Corpuscular HGB Conc 34.0 g/dL Normal 32.0-35.0 [facility] Comment on above: Performed By: #### L IPASE, CBC, CMP, HS TROP #### [facility] [address] [place], [place] [id number] [place] Monocytes/100 WBC (Bld) 17.36 % Normal 0.00-20.00 [facility] Comment on above: Performed By: #### L IPASE, CBC, CMP, HS TROP #### [facility] [address] [place] [address] NRBC% 0.1 /100{WBC} Normal 0-0.5 [facility] Comment on above: Performed By: #### L IPASE, CBC, CMP, HS TROP #### [facility] [address] [place] [address] Comprehensive Metabolic Pane nimesh 04-02-2023 Albumin [Mass/Vol] 4.2 g/dL Normal 3.5-5.7 [facility] Comment on above: Performed By: #### L IPASE, CBC, CMP, HS TROP #### [address] Anion gap [Moles/Vol] Not performed Normal 6.0-15.0 [facility] Comment on above: Performed By: #### L IPASE, CBC, CMP, HS TROP #### [address] Creatinine Clr Calc Pharmacy 62.75 Normal [facility] Comment on above: Performed By: #### L IPASE, CBC, CMP, HS TROP #### [address] GFR/1.73 sq M.predicted MDRD (S/P/Bld) [Vol rate/Area] mL/min/{1.73_m2} Normal [facility] Comment on above: Performed By: #### L IPASE, CBC, CMP, HS TROP #### [address] Potassium Normal 3.5-5.1 [facility] Comment on above: Result Comment: Spec imen hemolyzed, redraw requested Performed By: #### L IPASE, CBC, CMP, HS TROP #### [address] Creatinine [Mass/volume] in Serum or PlasmaOrdered By: Nicole Posadas on 04-02-2023 Creatinine [Mass/Vol] 0.82 mg/dL Normal 0.60-1.20 [facility] Comment on above: Performed By: #### L IPASE, CBC, CMP, HS TROP #### [place] [id number] [place] D-Dimer High Sensitivityon 0 04-02-2023 D-Dimer High Sensitivity < 200 Normal 0-243 [facility] Comment on above: Result Comment: [...] coagulation studies. Please contact the laboratory at [phone] for redraw instructions. PERFORMED BY: [place] [address] PATHOLOGIST DEPUTY SHERIFF GENERALIST/BAILIFF PAULA RODRIGUES M.D. Performed By: #### L IPASE, CBC, CMP, HS TROP #### [place] [id number] [facility] ECG 12 lead ECGon 04-02-2023 ECG 12 lead ECG [facility] [place] [address] [place] [address] Electrocardiograph Report Signed Patient: Chioma Arciniega MR#: [id number] : 1970 Acct:[id number] Age/Sex: 52 / F ADM Date: 04/02/23 Loc: ER Room: Type: [facility] ER Attending Dr: Ordering Provider: Nicole [...] Xiang Kellogg MD 04/02/23 1527 Normal [facility] Erythrocyte distribution wid th [Ratio] by Automated countOrdered By: Nicole Posadas on 04-02-2023 Erythrocyte distribution width (RBC) [Ratio] 13.3 % Normal 11.9-15.3 [facility] Comment on above: Performed By: #### L IPASE, CBC, CMP, HS TROP #### [facility] [address] Erythrocytes [#/volume] in B lood by Automated countOrdered By: Nicole Posadas on 04-02-2023 RBC (Bld) [#/Vol] 4.29 10*6/uL Normal 3.60-5.00 [facility] Comment on above: Performed By: #### L IPASE, CBC, CMP, HS TROP #### [facility] [address] Fibrin D-dimer [Presence] in Platelet poor plasma by Latex agglutinationOrdered By: Nicole Posadas on 04-02-2023 Fibrin D-dimer LA Ql (PPP) < 200 ng/mL 0-243 [facility] Comment on above: The reference range for [...] coagulation studies. Please contact the laboratory at [phone] for redraw instructions. Glucose [Mass/volume] in Ser um or PlasmaOrdered By: Nicole Posadas on 04-02-2023 Glucose [Mass/Vol] 90 mg/dL Normal 70-[address] [facility] Comment on above: ADA recommended refe rence rangeRandom Glucose Reference Range is dependent on time and content of last meal. Glucose of more than 200 mg/dL in a nonstressed, ambulatory subject supports the diagnosis of Diabetes Mellitus. Result Comment: [facility] Glucose Reference Range is dependent on time and content of last meal. Glucose of more than 200 mg/dL in a nonstressed, ambulatory subject supports the diagnosis of Diabetes Mellitus. ADA recommended reference range Performed By: #### L IPASE, CBC, CMP, HS TROP #### [facility] [address] Hematocrit [Volume Fraction] of Blood by Automated countOrdered By: Nicole Posadas on 04-02-2023 Hematocrit (Bld) [Volume fraction] 41.8 % Normal 34.0-46.4 [facility] Comment on above: Performed By: #### L IPASE, CBC, CMP, HS TROP #### [facility] [address] [place] [id number] [facility] Hemoglobin [Mass/volume] in BloodOrdered By: Nicole Posadas on 04-02-2023 Hemoglobin (Bld) [Mass/Vol] 14.2 g/dL Normal 11.8-15.4 [facility] Comment on above: Performed By: #### L IPASE, CBC, CMP, HS TROP #### [facility] [address] [place] [id number] [place] Ketones Auto test strip (U) [Mass/Vol]Ordered By: Nicole Posadas on 04-02-2023 Ketones (U) [Mass/Vol] Negative Negative [facility] Leukocytes [#/volume] correc aurelia for nucleated erythrocytes in Blood by Automated counOrdered By: Nicole Posadas on 04-02-2023 WBC corrected for nucl RBC Auto (Bld) [#/Vol] 6.2 10*3/uL 3.8-11.6 [facility] Leukocytes [#/volume] in Blo od by Automated countOrdered By: Nicole Posadas on 04-02-2023 WBC (Bld) [#/Vol] 6.2 10*3/uL Normal 3.8-11.[address] [facility] Comment on above: Performed By: #### L IPASE, CBC, CMP, HS TROP #### [facility] [address] [place] [address] [place] Lipase [Enzymatic activity/v olume] in Serum or PlasmaOrdered By: Nicole Posadas on 04-02-2023 Lipase [Catalytic activity/Vol] 186.0 U/L High 11.0-82.0 [facility] Comment on above: Result Comment: PERF ORMED BY: [place] [address] PATHOLOGIST DEPUTY SHERIFF GENERALIST/BAILIFF PAULA RODRIGUES M.D. Performed By: #### L IPASE, CBC, CMP, HS TROP #### [facility] [address] [place] [address] [place] Lymphocytes [#/volume] in Bl ood by Automated countOrdered By: Nicole Posadas on 04-02-2023 Lymphocytes (Bld) [#/Vol] 1.8 10*3/uL Normal 1.00-4.8 [facility] Comment on above: Performed By: #### L IPASE, CBC, CMP, HS TROP #### [facility] [address] [place] [address] [place] Lymphocytes/100 leukocytes i n Blood by Automated countOrdered By: Nicole Posadas on 04-02-2023 Lymphocytes/100 WBC (Bld) 29.2 % Normal . [facility] Comment on above: Performed By: #### L IPASE, CBC, CMP, HS TROP #### [facility] [address] [place] [address] [place] MCH [Entitic mass] by Automa aurelia countOrdered By: Nicole Posadas on 04-02-2023 MCH (RBC) [Entitic mass] 33.1 pg Normal 24.7-34.3 [facility] Comment on above: Performed By: #### L IPASE, CBC, CMP, HS TROP #### [facility] [address] [place] [address] MCHC Auto (RBC) [Mass/Vol]Or dered By: Nicole Posadas on 04-02-2023 MCHC (RBC) [Mass/Vol] 34.0 g/dL 32.0-35.0 [facility] MCV [Entitic volume] by Auto mated countOrdered By: Nicole Posadas on 04-02-2023 MCV (RBC) [Entitic vol] 97.4 fL Normal 80-100 [facility] Comment on above: Performed By: #### L IPASE, CBC, CMP, HS TROP #### [facility] [address] [place] [address] Monocyte distribution width [Entitic volume] in Blood by AutomatedOrdered By: Nicole Posadas on 04-02-2023 Monocyte distribution width Auto (Bld) [Entitic vol] 17.36 % 0.00-20.00 [facility] Neutrophils [#/volume] in Bl ood by Automated countOrdered By: Nicole Posadas on 04-02-2023 Neutrophils (Bld) [#/Vol] 3.6 10*3/uL Normal 1.8-7.7 [facility] Comment on above: Performed By: #### L IPASE, CBC, CMP, HS TROP #### [facility] [address] [place] [address] Nitrite Test strip Ql (U)Ord ered By: Nicole Posadas on 04-02-2023 Nitrite Ql (U) Negative Negative [facility] No Panel InformationOrdered By: Nicole Posadas on 04-02-2023 Estimated GFR (CKD-EPI) > 60.0 mL/Min [facility] Creatinine Clearance (Chem 62.75 [facility] Nucleated erythrocytes [Pres ence] in Blood by Automated countOrdered By: Nicole Posadas on 04-02-2023 Nucleated RBC Auto Ql (Bld) 0.1 /100{WBC} 0-0.5 [facility] Platelet mean volume [Entiti c volume] in Blood by Automated countOrdered By: Nicole Posadas on 04-02-2023 Platelet mean volume (Bld) [Entitic vol] 8.3 fL Normal 6.3-10.7 [facility] Comment on above: Performed By: #### L IPASE, CBC, CMP, HS TROP #### [address] Platelets [#/volume] in Bloo d by Automated countOrdered By: Nicole Posadas on 04-02-2023 Platelets (Bld) [#/Vol] 236 10*3/uL Normal 150-450 [facility] Comment on above: Performed By: #### L IPASE, CBC, CMP, HS TROP #### [address] Potassium [Moles/volume] in Serum or PlasmaOrdered By: Nicole Posadas on 04-02-2023 Potassium [Moles/Vol] 4.3 mmol/L Normal 3.5-5.1 [facility] Comment on above: Result Comment: PERF ORMED BY: [place] [address] PATHOLOGIST DEPUTY SHERIFF GENERALIST/BAILIFF PAULA RODRIGUES M.D. Performed By: #### R LESLY K #### [address] Protein Auto test strip (U) [Mass/Vol]Ordered By: Nicole Posadas on 04-02-2023 Protein (U) [Mass/Vol] Negative Negative [facility] Protein [Mass/volume] in Ser um or PlasmaOrdered By: Nicole Posadas on 04-02-2023 Protein [Mass/Vol] 6.6 g/dL Normal 6.4-8.[address] [facility] Comment on above: Performed By: #### L IPASE, CBC, CMP, HS TROP #### [address] Serum globulin measurement b y calculation (mass/volume)Ordered By: Nicole Posadas on 04-02-2023 Globulin (S) [Mass/Vol] 2.4 g/dL Normal [facility] Comment on above: Performed By: #### L IPASE, CBC, CMP, HS TROP #### [facility] [address] Serum or plasma albumin/glob ulin mass ratioOrdered By: Nicole Posadas on 04-02-2023 Albumin/Globulin [Mass ratio] 1.8 {ratio} [facility] Comment on above: Performed By: #### L IPASE, CBC, CMP, HS TROP #### [facility] [address] [place] [address] Serum or plasma anion gap de terminationOrdered By: Nicole Posadas on 04-02-2023 Anion gap [Moles/Vol] TNP [facility] Comment on above: Test not performed Sodium [Moles/volume] in Ser um or PlasmaOrdered By: Nicole Posadas on 04-02-2023 Sodium [Moles/Vol] 137 mmol/L Normal 136-[address] [facility] Comment on above: Performed By: #### L IPASE, CBC, CMP, HS TROP #### [facility] [address] [place] [address] Specific gravity Auto test s trip (U) [Rel density]Ordered By: Nicole Posadas on 04-02-2023 Specific gravity (U) [Rel density] 1.022 1.001-1.03 0 [facility] Troponin I High Sensitivityo n 04-02-2023 Troponin I High Sensitivity 2.6 pg/mL Normal 0.0-15.0 [facility] Comment on above: Result Comment: PERF ORMED BY: [place] [address] PATHOLOGIST DEPUTY SHERIFF GENERALIST/BAILIFF PAULA RODRIGUES M.D. Performed By: #### L IPASE, CBC, CMP, HS TROP #### [facility] [address] [place] [address] Troponin I.cardiac [Mass/vol ume] in Serum or Plasma by Detection limit <= 0.01 ng/Ordered By: Nicole Posadas on 04-02-2023 Troponin I.cardiac DL <= 0.01 ng/mL [Mass/Vol] 2.6 pg/mL 0.0-15.0 [facility] Urea nitrogen [Mass/volume] in Serum or PlasmaOrdered By: Nicole Posadas on 04-02-2023 Urea nitrogen [Mass/Vol] 7 mg/dL Normal 09-30 [facility] Comment on above: Performed By: #### L IPASE, CBC, CMP, HS TROP #### [facility] [address] [place] [address] [place] Urinalysison 04-02-2023 Appearance (U) Clear Normal Clear [facility] Comment on above: Order Comment: Name Collection Type:: Clean-Voided Midstream Performed By: #### U A #### [address] Bilirubin,Urine Negative Normal Negative [facility] Comment on above: Order Comment: Name Collection Type:: Clean-Voided Midstream Performed By: #### U A #### [place] [address] [place] Glucose Ql (U) Normal Normal Normal [facility] Comment on above: Order Comment: Name Collection Type:: Clean-Voided Midstream Performed By: #### U A #### [address] Ketones Ql (U) Negative Normal Negative [facility] Comment on above: Order Comment: Name Collection Type:: Clean-Voided Midstream Performed By: #### U A #### [place] [address] [place] Leukocyte esterase Test strip Ql (U) Negative Normal Negative [facility] Comment on above: Order Comment: Name Collection Type:: Clean-Voided Midstream Performed By: #### U A #### [place] [address] [place] Nitrite,Urine Negative Normal Negative [facility] Comment on above: Order Comment: Name Collection Type:: Clean-Voided Midstream Performed By: #### U A #### [place] [address] [place] Occult Blood,Urine Negative Normal Negative [facility] Comment on above: Order Comment: Name Collection Type:: Clean-Voided Midstream Result Comment: PERF ORMED BY: [place] [address] PATHOLOGIST DEPUTY SHERIFF GENERALIST/BAILIFF PAULA RODRIGUES M.D. Performed By: #### U A #### [place] [address] [place] Protein,Urine Negative Normal Negative [facility] Comment on above: Order Comment: Name Collection Type:: Clean-Voided Midstream Performed By: #### U A #### [address] Specificy [place],Urine 1.022 Normal 1.001-1.03 0 [facility] Comment on above: Order Comment: Name Collection Type:: Clean-Voided Midstream Performed By: #### U A #### [place] [address] [place] Urobilinogen,Urine Normal Normal Normal [facility] Comment on above: Order Comment: Name Collection Type:: Clean-Voided Midstream Performed By: #### U A #### [address] Urine clarity by refractomet ry automatedOrdered By: Nicole Posadas on 04-02-2023 Clarity Refractometry automated (U) Clear Clear [facility] Urine glucose measurement by automated test strip (mass/volume)Ordered By: Nicole Posadas on 04-02-2023 Glucose Auto test strip (U) [Mass/Vol] Normal mg/dL Normal [facility] Urine hemoglobin detection b y automated test stripOrdered By: Nicole Posadas on 04-02-2023 Hemoglobin Auto test strip Ql (U) Negative Negative [facility] Urine leukocyte esterase det ection by automated test stripOrdered By: Nicole Posadas on 04-02-2023 Leukocyte esterase Auto test strip Ql (U) Negative Negative [facility] Urine pH measurement by auto mated test stripOrdered By: Nicole Posadas on 04-02-2023 pH (U) 5.5 [pH] Normal 5.0-9.0 [facility] Comment on above: Order Comment: Name Collection Type:: Clean-Voided Midstream Performed By: #### U A #### [facility] [address] Urobilinogen Auto test strip (U) [Mass/Vol]Ordered By: Nicole Posadas on 04-02-2023 Urobilinogen (U) [Mass/Vol] Normal mg/dL Normal [facility] CBC AND AUTO DIFFon 03-27-19 ABSOLUTE BASOPHIL 0.1 X10E9/L Normal 0.0-0.2 [facility] Comment on above: Performed By: #### C BCA, CMP, 3040-3, 98016-1, 84082-2, 57114- 9 #### [facility] ([id number]) [address] [place] [address] 23048 ABSOLUTE NEUTROPHIL 7.2 X10E9/L High 1.5-6.6 [facility] Comment on above: Performed By: #### C BCA, CMP, 3040-3, 26502-7, 52028-8, 97102- 9 #### [facility] ([id number]) [address] [place] [address] 36490 Basophils/100 WBC (Bld) 0.6 % Normal [facility] Comment on above: Performed By: #### C BCA, CMP, 3040-3, 14250-8, 41603-5, 78488- 9 #### [facility] ([id number]) [address] [place] [address] 82486 Eosinophils (Bld) [#/Vol] 0.0 10*3/uL Normal 0.0-0.4 [facility] Comment on above: Performed By: #### C BCA, CMP, 3040-3, 11622-6, 94086-6, 62399- 9 #### [facility] ([id number]) [address] [place] [address] 01708 Eosinophils/100 WBC (Bld) 0.1 % Normal [facility] Comment on above: Performed By: #### C BCA, CMP, 3040-3, 10902-9, 23177-9, 21130- 9 #### [facility] ([id number]) [address] [place] [address] 39212 Erythrocyte distribution width (RBC) [Ratio] 13.7 % Normal 11.5-15.0 [facility] Comment on above: Performed By: #### C BCA, CMP, 3040-3, 78420-7, 66944-9, 67445- 9 #### [facility] ([id number]) [address] [place] [address] 91533 Hematocrit (Bld) [Volume fraction] 40.4 % Normal 35-47 [facility] Comment on above: Performed By: #### C BCA, CMP, 3040-3, 24786-4, 13104-8, 26220- 9 #### [facility] ([id number]) [address] [place] [address] 86607 Hemoglobin (Bld) [Mass/Vol] 13.8 g/dL Normal 11.7-15.5 [facility] Comment on above: Performed By: #### C BCA, CMP, 3040-3, 38500-6, 03701-6, 84509- 9 #### [facility] ([id number]) [address] [place] [address] 53196 Lymphocytes (Bld) [#/Vol] 1.7 10*3/uL Normal 1.0-3.5 [facility] Comment on above: Performed By: #### C BCA, CMP, 3040-3, 03436-8, 32817-0, 26759- 9 #### [facility] ([id number]) [address] [place] [address] [place] [address] Lymphocytes/100 WBC (Bld) 17.8 % Normal [facility] Comment on above: Performed By: #### C BCA, CMP, 3040-3, 11308-3, 26134-6, - 9 #### [facility] ([id number]) [address] [place] [address] 34787 MCH (RBC) [Entitic mass] 33.0 pg Normal 27-34 [facility] Comment on above: Performed By: #### C BCA, CMP, 3040-3, 07802-4, 66145-0, 76829- 9 #### [facility] ([id number]) [address] [place] [address] 82127 MCHC (RBC) [Mass/Vol] 34.1 g/dL Normal 32-36 [facility] Comment on above: Performed By: #### C BCA, CMP, 3040-3, 91627-9, 10589-0, - 9 #### [facility] ([id number]) [address] [place] [address] 77245 MCV (RBC) [Entitic vol] 97 fL Normal 80-100 [facility] Comment on above: Performed By: #### C BCA, CMP, 3040-3, 53894-7, 93136-3, 22764- 9 #### [facility] ([id number]) [address] [place] [address] 28425 Monocytes (Bld) [#/Vol] 0.8 10*3/uL Normal 0-0.9 [facility] Comment on above: Performed By: #### C BCA, CMP, 3040-3, 67883-4, 68979-6, 86392- 9 #### [facility] ([id number]) [address] [place] [address] 00743 Monocytes/100 WBC (Bld) 7.8 % Normal [facility] Comment on above: Performed By: #### C BCA, CMP, 3040-3, 38810-9, 72976-5, 93651- 9 #### [facility] ([id number]) [address] [place] [address] 13488 Neutrophils/100 WBC (Bld) 73.7 % Normal [facility] Comment on above: Performed By: #### C BCA, CMP, 3040-3, 61068-5, 33201-2, 15011- 9 #### [facility] ([id number]) [address] [place] [address] 89135 Platelet mean volume (Bld) [Entitic vol] 7.6 fL Normal 7-12 [facility] Comment on above: Performed By: #### C BCA, CMP, 3040-3, 27599-7, 41969-7, 41449- 9 #### [facility] ([id number]) [address] [place] [address] 34994 Platelets (Bld) [#/Vol] 269 10*3/uL Normal 150-450 [facility] Comment on above: Performed By: #### C BCA, CMP, 3040-3, 62162-3, 59133-8, 58018- 9 #### [facility] ([id number]) [address] [place] [address] 45155 RBC COUNT 4.17 X10E12/L Normal 3.80-5.20 [facility] Comment on above: Performed By: #### C BCA, CMP, 3040-3, 17566-1, 46362-0, 82444- 9 #### [facility] ([id number]) [address] [place] [address] 22510 WBC (Bld) [#/Vol] 9.8 10*3/uL Normal 4.0-11.0 [facility] Comment on above: Performed By: #### C BCA, CMP, 3040-3, 26238-9, 04731-8, 87701- 9 #### [facility] ([id number]) [address] [place] [address] 99975 COMPREHENSIVE METABOLIC PANE Nimesh 03-27-2023 Albumin [Mass/Vol] 4.6 g/dL Normal 3.2-5.3 [facility] Comment on above: Performed By: #### C BCA, CMP, 3040-3, 52708-5, 74292-6, 57215- 9 #### [facility] ([id number]) [address] [place] [address] 39825 ALP [Catalytic activity/Vol] 125 U/L Normal 39-130 [facility] Comment on above: Performed By: #### C BCA, CMP, 3040-3, 60118-4, 04685-3, 64008- 9 #### [facility] ([id number]) [address] [place] [address] 76569 ALT [Catalytic activity/Vol] 17 U/L Normal 0-31 [facility] Comment on above: Performed By: #### C BCA, CMP, 3040-3, 83137-1, 06221-1, 76599- 9 #### [facility] ([id number]) [address] [place] [address] 20383 Anion gap [Moles/Vol] 10 mmol/L Normal 5-15 [facility] Comment on above: Performed By: #### C BCA, CMP, 3040-3, 67921-1, 53149-7, 29100- 9 #### [facility] ([id number]) [address] [place] [address] 68300 AST [Catalytic activity/Vol] 27 U/L Normal 0-41 [facility] Comment on above: Performed By: #### C BCA, CMP, 3040-3, 49698-7, 19447-1, 31289- 9 #### [facility] ([id number]) [address] [place] [address] 13471 Bilirubin [Mass/Vol] 0.4 mg/dL Normal 0.3-1.2 [facility] Comment on above: Performed By: #### C BCA, CMP, 3040-3, 94655-1, 47645-5, 69520- 9 #### [facility] ([id number]) [address] [place] [address] 34040 Calcium [Mass/Vol] 10.4 mg/dL Normal 8.5-10.5 [facility] Comment on above: Performed By: #### C BCA, CMP, 3040-3, 15567-0, 86012-5, 98965- 9 #### [facility] ([id number]) [address] [place] [address] 95068 Chloride [Moles/Vol] 103 mmol/L Normal 98-109 [facility] Comment on above: Performed By: #### C BCA, CMP, 3040-3, 31823-3, 29240-5, 67215- 9 #### [facility] ([id number]) [address] [place] [address] 80867 CO2 [Moles/Vol] 25 mmol/L Normal 22-32 [facility] Comment on above: Performed By: #### C BCA, CMP, 3040-3, 59025-9, 65330-5, 40431- 9 #### [facility] ([id number]) [address] [place] [address] 19634 Creatinine [Mass/Vol] 0.96 mg/dL Normal 0.40-1.00 [facility] Comment on above: Result Comment: METH OD TRACEABLE TO IDMS STANDARD Performed By: #### C BCA, CMP, 3040-3, 29429-1, 44567-0, 23130-6 #### [facility] ([id number]) [address] [place] [address] 52020 GFR/1.73 sq M.predicted among non-blacks MDRD (S/P/Bld) [Vol rate/Area] 71 mL/min/{1.73_m2} Normal >59 [facility] Comment on above: Result Comment: Reported eGFR is based on the CKD-EPI 2020 equation that does not use a race coefficient. Performed By: #### C BCA, CMP, 3040-3, 30589-7, 71987-3, 35294-9 #### [facility] ([id number]) [address] [place] [address] 09761 Glucose [Mass/Vol] 97 mg/dL Normal 65-99 [facility] Comment on above: Performed By: #### C EZEQUIEL, CMP, 3040-3, 38692-1, 10482-9, 86345- 9 #### [facility] ([id number]) [address] [place] [address] 52674 Potassium [Moles/Vol] 4.2 mmol/L Normal 3.5-5.0 [facility] Comment on above: Performed By: #### C BCA, CMP, 3040-3, 38578-0, 24034-2, 74405- 9 #### [facility] ([id number]) [address] [place] [address] 76918 Protein [Mass/Vol] 7.4 g/dL Normal 6.0-8.0 [facility] Comment on above: Performed By: #### C BCA, CMP, 3040-3, 10363-4, 94968-3, 20252- 9 #### [facility] ([id number]) [address] [place] [address] 92111 Sodium [Moles/Vol] 138 mmol/L Normal 134-146 [facility] Comment on above: Performed By: #### C BCA, CMP, 3040-3, 56822-9, 61899-0, 42105- 9 #### [facility] ([id number]) [address] [place] [address] 25201 Urea nitrogen [Mass/Vol] 14 mg/dL Normal 5-23 [facility] Comment on above: Performed By: #### C BONNIE NIEVES, 3040-3, 85076-4, 71514-8, 59653- 9 #### [facility] ([id number]) [facility], [place] [address] CT ABDOMEN AND PELVIS W CONT on [...] Flower MD on 03/27/2023 12:55 AM Normal [facility] LIPASEon 03-27-2023 Lipase [Catalytic activity/Vol] 31 U/L Normal 17-40 [facility] Comment on above: Performed By: #### C BONNIE NIEVES, 3040-3, 17865-4, 69537-6, 90377- 9 #### [facility] ([id number]) [address] [place] [address] 91489 Lactate (P richard) [Moles/Vol]o n 03-27-2023 LACTATE W/REFLEX 1.2 mmol/L Normal 0.4-2.0 [facility] Comment on above: Result Comment: Result did not trigger repeat Lactate, re-order if needed. Performed By: #### C BCA, CMP, 3040-3, 27982-8, 97388-6, 14202-8 #### [facility] ([id number]) [address] [place] [address] 96169 MAGNESIUMon 03-27-2023 Magnesium [Mass/Vol] 2.0 mg/dL Normal 1.8-2.6 [facility] Comment on above: Performed By: #### C BCA, CMP, 3040-3, 37309-8, 71785-0, 02819- 9 #### [facility] ([id number]) [address] [place] [address] 92958 TROPONIN Ion 03-27-2023 Troponin I.cardiac [Mass/Vol] ng/mL Normal 0.00-0.04 [facility] Comment on above: Performed By: #### C BCA, CMP, 3040-3, 74127-8, 74872-4, 09410- 9 #### [facility] ([id number]) [address] [place] [address] 13386 Alanine aminotransferase [En zymatic activity/volume] in Serum or PlasmaOrdered By: Nicole Posadas on 11-09-2022 ALT [Catalytic activity/Vol] 12 U/L Normal 7-52 [facility] Comment on above: Performed By: #### C MP, LIPASE, CBC #### [facility] [address] [place] [address] [place] Albumin [Mass/volume] in Ser um or Plasma by Bromocresol green (BCG) dye binding methoOrdered By: Nicole Posadas on 11-09-2022 Albumin BCG dye [Mass/Vol] 4.4 g/dL 3.5-5.7 [facility] Alkaline phosphatase [Enzyma tic activity/volume] in Serum or PlasmaOrdered By: Nicole Posadas on 11-09-2022 ALP [Catalytic activity/Vol] 126 U/L High 34-104 [facility] Comment on above: Performed By: #### C MP, LIPASE, CBC #### [address] Aspartate aminotransferase [ Enzymatic activity/volume] in Serum or PlasmaOrdered By: Nicole Posadas on 11-09-2022 AST [Catalytic activity/Vol] 17 U/L Normal 13-39 [facility] Comment on above: Performed By: #### C MP, LIPASE, CBC #### [address] Automated basophil %Ordered By: Nicole Posadas on 11-09-2022 Basophils/100 WBC (Bld) 0.9 % Normal . [facility] Comment on above: Performed By: #### C MP, LIPASE, CBC #### [address] Automated basophil countOrde red By: Nicole Posadas on 11-09-2022 Basophils (Bld) [#/Vol] 0.1 10*3/uL Normal 0.0-0.2 [facility] Comment on above: Result Comment: PERF ORMED BY: [place] [address] PATHOLOGIST DEPUTY SHERIFF GENERALIST/BAILIFF PAULA RODRIGUES M.D. Performed By: #### C MP, LIPASE, CBC #### [address] Automated blood monocyte cou ntOrdered By: Nicole Posadas on 11-09-2022 Monocytes (Bld) [#/Vol] 0.8 10*3/uL Normal 0.0-0.8 [facility] Comment on above: Performed By: #### C MP, LIPASE, CBC #### [address] Automated eosinophil %Ordere d By: Nicole Posadas on 11-09-2022 Eosinophils/100 WBC (Bld) 1.6 % Normal . [facility] Comment on above: Performed By: #### C MP, LIPASE, CBC #### [address] Automated eosinophil countOr dered By: Nicole Posadas on 11-09-2022 Eosinophils (Bld) [#/Vol] 0.1 10*3/uL Normal 0.0-0.45 [facility] Comment on above: Performed By: #### C MP, LIPASE, CBC #### [address] Automated monocyte %Ordered By: Nicole Posadas on 11-09-2022 Monocytes/100 WBC (Bld) 8.1 % Normal . [facility] Comment on above: Performed By: #### C MP, LIPASE, CBC #### [address] Automated neutrophil %Ordere d By: Nicole Posadas on 11-09-2022 Neutrophils/100 WBC (Bld) 65.4 % Normal . [facility] Comment on above: Performed By: #### C MP, LIPASE, CBC #### [address] Automated urine color determ inationOrdered By: Nicole Posadas on 11-09-2022 Color (U) Yellow Normal Yellow [facility] Comment on above: Order Comment: Name Collection Type:: Clean-Voided Midstream Performed By: #### L IPASE, CBC, CMP, HS TROP #### [address] Bilirubin Test strip Ql (U)O rdered By: Nicole oPsadas on 11-09-2022 Bilirubin Ql (U) Negative Negative [facility] Bilirubin.total [Mass/volume ] in Serum or PlasmaOrdered By: Nicole Posadas on 11-09-2022 Bilirubin [Mass/Vol] 0.3 mg/dL Normal 0.3-1.0 [facility] Comment on above: Performed By: #### C MP, LIPASE, CBC #### [facility] [address] [place] [id number] [facility] CT abdomen pelvis w conon CT abdomen pelvis w con [facility] [place] [address] [place] [address] CT Scan Report Signed Patient: Chioma Arciniega MR#: [id number] : 1970 Acct:[id number] Age/Sex: 52 / F ADM Date: 11/09/22 Loc: ER Room: Type: [facility] ER Attending Dr: Copies to: Nicole [...] Rajeev Ulloa M.D.11/09/2022 4:14 PM Dictation Location: [place] [address] Transcribed By: RICA 11/09/22 1614 Dictated By: Rajeev Ulloa II, MD 11/09/22 1608 Signed By: 11/09/22 1614 Normal [facility] Physician [facility] Calcium [Mass/volume] in Ser um or PlasmaOrdered By: Nicole Posadas on 11-09-2022 Calcium [Mass/Vol] 9.7 mg/dL Normal 8.6-10.[address] [facility] Comment on above: Performed By: #### C MP, LIPASE, CBC #### [address] Carbon dioxide, total [Moles /volume] in Serum or PlasmaOrdered By: Nicole Posadas on 11-09-2022 CO2 [Moles/Vol] 28.6 mmol/L Normal 21.0-31.[address] [facility] Comment on above: Performed By: #### C MP, LIPASE, CBC #### [facility] [address] [place] [address] [place] Chloride [Moles/volume] in S erika or PlasmaOrdered By: Nicole Posadas on 11-09-2022 Chloride [Moles/Vol] 107 mmol/L Normal 98-107 [facility] Comment on above: Performed By: #### C MP, LIPASE, CBC #### [facility] [address] [place] [address] [place] Complete Blood Count Auto Di ffon 11-09-2022 Mean Corpuscular HGB Conc 33.4 g/dL Normal 32.0-35.0 [facility] Comment on above: Performed By: #### C MP, LIPASE, CBC #### [place] [address] [place] Monocytes/100 WBC (Bld) 18.76 % Normal 0.00-20.00 [facility] Comment on above: Performed By: #### C MP, LIPASE, CBC #### [address] NRBC% 0.0 /100{WBC} Normal 0-0.5 [facility] Comment on above: Performed By: #### C MP, LIPASE, CBC #### [address] Comprehensive Metabolic Pane nimesh 11-09-2022 Albumin [Mass/Vol] 4.4 g/dL Normal 3.5-5.7 [facility] Comment on above: Performed By: #### C MP, LIPASE, CBC #### [address] Creatinine Clr Calc Pharmacy 69.00 Normal [facility] Comment on above: Performed By: #### C MP, LIPASE, CBC #### [address] GFR/1.73 sq M.predicted MDRD (S/P/Bld) [Vol rate/Area] mL/min/{1.73_m2} Normal [facility] Comment on above: Performed By: #### C MP, LIPASE, CBC #### [address] Creatinine [Mass/volume] in Serum or PlasmaOrdered By: Nicole Posadas on 11-09-2022 Creatinine [Mass/Vol] 0.78 mg/dL Normal 0.60-1.20 [facility] Comment on above: Performed By: #### C MP, LIPASE, CBC #### [address] ECG 12 lead ECGon 11-09-2022 ECG 12 lead ECG [facility] [place] [address] [place] [address] Electrocardiograph Report Signed Patient: Chioam Arciniega MR#: [id number] : 1970 Acct:[id number] Age/Sex: 52 / F ADM Date: 11/09/22 [...] Agustin Llanes MD 06/29 0147 Normal [facility] Erythrocyte distribution wid th [Ratio] by Automated countOrdered By: Nicole Posadas on 11-09-2022 Erythrocyte distribution width (RBC) [Ratio] 13.6 % Normal 11.9-15.3 [facility] Comment on above: Performed By: #### C MP, LIPASE, CBC #### [facility] [address] Erythrocytes [#/volume] in B lood by Automated countOrdered By: Nicole Posadas on 11-09-2022 RBC (Bld) [#/Vol] 4.52 10*6/uL Normal 3.60-5.00 [facility] Comment on above: Performed By: #### C MP, LIPASE, CBC #### [facility] [address] [place] [id number] [facility] Glucose [Mass/volume] in Ser um or PlasmaOrdered By: Nicole Posadas on 11-09-2022 Glucose [Mass/Vol] 96 mg/dL Normal 70-[address] [facility] Comment on above: ADA recommended refe rence rangeRandom Glucose Reference Range is dependent on time and content of last meal. Glucose of more than 200 mg/dL in a nonstressed, ambulatory subject supports the diagnosis of Diabetes Mellitus. Result Comment: [facility] Glucose Reference Range is dependent on time and content of last meal. Glucose of more than 200 mg/dL in a nonstressed, ambulatory subject supports the diagnosis of Diabetes Mellitus. ADA recommended reference range Performed By: #### C MP, LIPASE, CBC #### [facility] [address] Hematocrit [Volume Fraction] of Blood by Automated countOrdered By: Nicole Posadas on 11-09-2022 Hematocrit (Bld) [Volume fraction] 44.4 % Normal 34.0-46.4 [facility] Comment on above: Performed By: #### C MP, LIPASE, CBC #### [facility] [address] Hemoglobin [Mass/volume] in BloodOrdered By: Nicole Posadas on 11-09-2022 Hemoglobin (Bld) [Mass/Vol] 14.9 g/dL Normal 11.8-15.4 [facility] Comment on above: Performed By: #### C MP, LIPASE, CBC #### [facility] [address] Ketones Auto test strip (U) [Mass/Vol]Ordered By: Nicole Posadas on 11-09-2022 Ketones (U) [Mass/Vol] Negative Negative [facility] Leukocytes [#/volume] correc aurelia for nucleated erythrocytes in Blood by Automated counOrdered By: Nicole Posadas on 11-09-2022 WBC corrected for nucl RBC Auto (Bld) [#/Vol] 9.3 10*3/uL 3.8-11.6 [facility] Leukocytes [#/volume] in Blo od by Automated countOrdered By: Nicole Posadas on 11-09-2022 WBC (Bld) [#/Vol] 9.3 10*3/uL Normal 3.8-11.[address] [facility] Comment on above: Performed By: #### C MP, LIPASE, CBC #### [address] Lipase [Enzymatic activity/v olume] in Serum or PlasmaOrdered By: Nicole Posadas on 11-09-2022 Lipase [Catalytic activity/Vol] 78.0 U/L Normal 11.0-82.0 [facility] Comment on above: Result Comment: PERF ORMED BY: [place] [address] PATHOLOGIST DEPUTY SHERIFF GENERALIST/BAILIFF PAULA RODRIGUES M.D. Performed By: #### C MP, LIPASE, CBC #### [address] Lymphocytes [#/volume] in Bl ood by Automated countOrdered By: Nicole Posadas on 11-09-2022 Lymphocytes (Bld) [#/Vol] 2.2 10*3/uL Normal 1.00-4.8 [facility] Comment on above: Performed By: #### C MP, LIPASE, CBC #### [address] Lymphocytes/100 leukocytes i n Blood by Automated countOrdered By: Nicole Posadas on 11-09-2022 Lymphocytes/100 WBC (Bld) 24.0 % Normal . [facility] Comment on above: Performed By: #### C MP, LIPASE, CBC #### [address] MCH [Entitic mass] by Automa aurelia countOrdered By: Nicole Posadas on 11-09-2022 MCH (RBC) [Entitic mass] 32.8 pg Normal 24.7-34.3 [facility] Comment on above: Performed By: #### C MP, LIPASE, CBC #### [address] MCHC Auto (RBC) [Mass/Vol]Or dered By: Nicole Posadas on 11-09-2022 MCHC (RBC) [Mass/Vol] 33.4 g/dL 32.0-35.0 [facility] MCV [Entitic volume] by Auto mated countOrdered By: Nicole Posadas on 11-09-2022 MCV (RBC) [Entitic vol] 98.2 fL Normal 80-100 [facility] Comment on above: Performed By: #### C MP, LIPASE, CBC #### [address] [place] [address] [place] Monocyte distribution width [Entitic volume] in Blood by AutomatedOrdered By: Nicole Posadas on 11-09-2022 Monocyte distribution width Auto (Bld) [Entitic vol] 18.76 % 0.00-20.00 [facility] Neutrophils [#/volume] in Bl ood by Automated countOrdered By: Nicole Posadas on 11-09-2022 Neutrophils (Bld) [#/Vol] 6.1 10*3/uL Normal 1.8-7.7 [facility] Comment on above: Performed By: #### C MP, LIPASE, CBC #### [facility] [address] Nitrite Test strip Ql (U)Ord ered By: Nicole Posadas on 11-09-2022 Nitrite Ql (U) Negative Negative [facility] No Panel InformationOrdered By: Nicole Posadas on 11-09-2022 Estimated GFR (CKD-EPI) > 60.0 mL/Min [facility] Creatinine Clearance (Chem 69.00 [facility] Nucleated erythrocytes [Pres ence] in Blood by Automated countOrdered By: Nicole Posadas on 11-09-2022 Nucleated RBC Auto Ql (Bld) 0.0 /100{WBC} 0-0.5 [facility] Platelet mean volume [Entiti c volume] in Blood by Automated countOrdered By: Nicole Posadas on 11-09-2022 Platelet mean volume (Bld) [Entitic vol] 8.3 fL Normal 6.3-10.7 [facility] Comment on above: Performed By: #### C MP, LIPASE, CBC #### [facility] [address] [place] [address] [place] Platelets [#/volume] in Bloo d by Automated countOrdered By: Nicole Posadas on 11-09-2022 Platelets (Bld) [#/Vol] 246 10*3/uL Normal 150-450 [facility] Comment on above: Performed By: #### C MP, LIPASE, CBC #### [facility] [address] [place] [address] [place] Potassium [Moles/volume] in Serum or PlasmaOrdered By: Nicole Posadas on 11-09-2022 Potassium [Moles/Vol] 3.7 mmol/L Normal 3.5-5.1 [facility], [facility] Comment on above: Performed By: #### C MP, LIPASE, CBC #### [address] Protein Auto test strip (U) [Mass/Vol]Ordered By: Nicole Posadas on 11-09-2022 Protein (U) [Mass/Vol] Negative Negative [facility] Protein [Mass/volume] in Ser um or PlasmaOrdered By: Nicole Posadas on 11-09-2022 Protein [Mass/Vol] 7.1 g/dL Normal 6.4-8.[address] [facility] Comment on above: Performed By: #### C MP, LIPASE, CBC #### [address] Serum globulin measurement b y calculation (mass/volume)Ordered By: Nicole Posadas on 11-09-2022 Globulin (S) [Mass/Vol] 2.7 g/dL Normal [facility] Comment on above: Performed By: #### C MP, LIPASE, CBC #### [address] Serum or plasma albumin/glob ulin mass ratioOrdered By: Nicole Posadas on 11-09-2022 Albumin/Globulin [Mass ratio] 1.6 {ratio} [facility] Comment on above: Performed By: #### C MP, LIPASE, CBC #### [address] Serum or plasma anion gap de terminationOrdered By: Nicole Posadas on 11-09-2022 Anion gap [Moles/Vol] 8.1 mmol/L Normal 6.0-15.0 [facility] Comment on above: Performed By: #### C MP, LIPASE, CBC #### [address] Sodium [Moles/volume] in Ser um or PlasmaOrdered By: Nicole Posadas on 11-09-2022 Sodium [Moles/Vol] 140 mmol/L Normal 136-[address] [facility] Comment on above: Performed By: #### C MP, LIPASE, CBC #### [address] Specific gravity Auto test s trip (U) [Rel density]Ordered By: Nicole Posadas on 11-09-2022 Specific gravity (U) [Rel density] 1.012 1.001-1.03 0 [facility] Troponin I High Sensitivityo n 11-09-2022 Troponin I High Sensitivity 3.0 pg/mL Normal 0.0-15.0 [facility] Comment on above: Result Comment: PERF ORMED BY: [place] [address] PATHOLOGIST DEPUTY SHERIFF GENERALIST/BAILIFF PAULA RODRIGUES M.D. Performed By: #### H S TROP #### [address] Troponin I.cardiac [Mass/vol ume] in Serum or Plasma by Detection limit <= 0.01 ng/Ordered By: Nicole Jjanand on 11-09-2022 Troponin I.cardiac DL <= 0.01 ng/mL [Mass/Vol] 3.0 pg/mL 0.0-15.0 [facility] Urea nitrogen [Mass/volume] in Serum or PlasmaOrdered By: Nicole Posadas on 11-09-2022 Urea nitrogen [Mass/Vol] 6 mg/dL Low 7-25 [facility] Comment on above: Performed By: #### C MP, LIPASE, CBC #### [address] Urinalysison 11-09-2022 Appearance (U) Clear Normal Clear [facility] Comment on above: Order Comment: Name Collection Type:: Clean-Voided Midstream Performed By: #### L IPASE, CBC, CMP, HS TROP #### [address] Bilirubin,Urine Negative Normal Negative [facility] Comment on above: Order Comment: Name Collection Type:: Clean-Voided Midstream Performed By: #### L IPASE, CBC, CMP, HS TROP #### [address] Glucose Ql (U) Normal Normal Normal [facility] Comment on above: Order Comment: Name Collection Type:: Clean-Voided Midstream Performed By: #### L IPASE, CBC, CMP, HS TROP #### [place] [address] [place] Ketones Ql (U) Negative Normal Negative [facility] Comment on above: Order Comment: Name Collection Type:: Clean-Voided Midstream Performed By: #### L IPASE, CBC, CMP, HS TROP #### [address] Leukocyte esterase Test strip Ql (U) Negative Normal Negative [facility] Comment on above: Order Comment: Name Collection Type:: Clean-Voided Midstream Performed By: #### L IPASE, CBC, CMP, HS TROP #### [place] [address] [place] Nitrite,Urine Negative Normal Negative [facility] Comment on above: Order Comment: Name Collection Type:: Clean-Voided Midstream Performed By: #### L IPASE, CBC, CMP, HS TROP #### [place] [address] [place] Occult Blood,Urine Negative Normal Negative [facility] Comment on above: Order Comment: Name Collection Type:: Clean-Voided Midstream Result Comment: PERF ORMED BY: [place] [address] PATHOLOGIST DEPUTY SHERIFF GENERALIST/BAILIFF PAULA RODRIGUES M.D. Performed By: #### L IPASE, CBC, CMP, HS TROP #### [place] [address] [place] Protein,Urine Negative Normal Negative [facility] Comment on above: Order Comment: Name Collection Type:: Clean-Voided Midstream Performed By: #### L IPASE, CBC, CMP, HS TROP #### [address] [place] [address] [place] Specificy [place],Urine 1.012 Normal 1.001-1.03 0 [facility] Comment on above: Order Comment: Name Collection Type:: Clean-Voided Midstream Performed By: #### L IPASE, CBC, CMP, HS TROP #### [facility] [address] [id number] [place] Urobilinogen,Urine Normal Normal Normal [facility] Comment on above: Order Comment: Name Collection Type:: Clean-Voided Midstream Performed By: #### L IPASE, CBC, CMP, HS TROP #### [facility] [address] Urine clarity by refractomet ry automatedOrdered By: Nicole Posadas on 11-09-2022 Clarity Refractometry automated (U) Clear Clear [facility] Urine glucose measurement by automated test strip (mass/volume)Ordered By: Nicole Posadas on 11-09-2022 Glucose Auto test strip (U) [Mass/Vol] Normal mg/dL Normal [facility] Urine hemoglobin detection b y automated test stripOrdered By: Nicole Posadas on 11-09-2022 Hemoglobin Auto test strip Ql (U) Negative Negative [facility] Urine leukocyte esterase det ection by automated test stripOrdered By: Nicole Posadas on 11-09-2022 Leukocyte esterase Auto test strip Ql (U) Negative Negative [facility] Urine pH measurement by auto mated test stripOrdered By: Nicole Posadas on 11-09-2022 pH (U) 5.5 [pH] Normal 5.0-9.0 [facility] Comment on above: Order Comment: Name Collection Type:: Clean-Voided Midstream Performed By: #### L IPASE, CBC, CMP, HS TROP #### [facility] [address] [id number] [place] Urobilinogen Auto test strip (U) [Mass/Vol]Ordered By: Nicole Posadas on 11-09-2022 Urobilinogen (U) [Mass/Vol] Normal mg/dL [facility] Patient Name: Chioma Rainey Procedure Date: 08/12/2022 11:09 AM Date of : 1970 Admit Type: Outpatient Age: 52 Room: EUS Proc Room 01 Gender: Female Note Status: Finalized Attending MD: Sabrina Dee MD, MPH, [id number] Procedure: Upper EUS Indications: Chronic pancreatitis, Epigastric abdominal pain, Celiac plexus block for pain secondary to chronic pancreatitis, Dysphagia, Follow-up of esophageal stenosis, For therapy of esophageal stenosis Providers: Sabrina Dee MD, MPH (Doctor), Kolby Gifford RN (Nurse), Elba Faustin (Nurse), Mary Gaviria Chocolate Finisher Operator (Chocolate Finisher Operator) Referring MD: Elie Nichols MD (Referring [...] by the physician, the nurse and the ivf embryologist in the procedure room. Mental Status Examination: [...] abnor (more content not included)... LAB, [facility] Radiology Study observation (narrative) [facility] AMYLASEon 06-13-2022 Amylase [Catalytic activity/Vol] 92 U/L Normal 25-115 [facility] Comment on above: Performed By: #### L IPA, CMP, CRP, NAT #### [facility] [address] [place] [address] Dr. Keturah Fisher CBC AUTO DIFFon 06-13-2022 BASO # 0.1 103/ul Normal 0.0-0.1 [facility] Comment on above: Performed By: #### L IPA, CMP, CRP, NAT #### [facility] [address] [address] [address] Keturah Fisher Basophils/100 WBC (Bld) 0.7 % Normal 0.2-2.0 [facility] Comment on above: Performed By: #### L IPA, CMP, CRP, NAT #### [facility] [address] [address] [address] Keturah Fisher EO # 0.1 103/ul Normal 0.0-0.7 [facility] Comment on above: Performed By: #### L IPA, CMP, CRP, NAT #### [facility] [address] [place] [address] Dr. Keturah Fisher Eosinophils/100 WBC (Bld) 1.1 % Normal 0.9-7.0 [facility] Comment on above: Performed By: #### L IPA, CMP, CRP, NAT #### [facility] [address] [place] [address] Dr. Keturah Fisher Erythrocyte distribution width (RBC) [Ratio] 13.0 % Normal 11.0-15.0 [facility] Comment on above: Performed By: #### L IPA, CMP, CRP, NAT #### [facility] [address] [place] [address] Dr. Keturah Fisher Hematocrit (Bld) [Volume fraction] 40.5 % Normal 36.0-48.0 [facility] Comment on above: Performed By: #### L IPA, CMP, CRP, NAT #### [facility] [address] [place] [address] Dr. Keturah Fisher Hemoglobin (Bld) [Mass/Vol] 13.9 g/dL Normal 12.0-16.0 [facility] Comment on above: Performed By: #### L IPA, CMP, CRP, NAT #### [facility] [address] [place] [address] Dr. Keturah Fisher IG # 0.03 10e3/ul Normal 0.00-0.03 [facility] Comment on above: Performed By: #### L IPA, CMP, CRP, NAT #### [facility] [address] [place] [address] Dr. Keturah Fisher IG % 0.3 % Normal 0.0-0.5 [facility] Comment on above: Performed By: #### L IPA, CMP, CRP, NAT #### [facility] [address] [place] [address] Dr. Keturah Fisher LYMPH # 2.9 103/ul Normal 1.2-3.8 [facility] Comment on above: Performed By: #### L IPA, CMP, CRP, NAT #### [facility] [address] [place] [address] Dr. Keturah Fisher Lymphocytes/100 WBC (Bld) 25.0 % Normal 20.5-60.0 [facility] Comment on above: Performed By: #### L IPA, CMP, CRP, NAT #### [facility] [address] [place] [address] Dr. Keturah Fisher MANUAL DIFF REQ NO Normal [facility] Comment on above: Performed By: #### L IPA, CMP, CRP, NAT #### [facility] [address] [place] [address] Dr. Keturah Fisher MCH (RBC) [Entitic mass] 33.3 pg Normal 26.7-34.0 [facility] Comment on above: Performed By: #### L IPA, CMP, CRP, NAT #### [facility] [address] [place] [address] Dr. Keturah Fisher MCHC (RBC) [Mass/Vol] 34.3 g/dL Normal 29.9-35.2 [facility] Comment on above: Performed By: #### L IPA, CMP, CRP, NAT #### [facility] [address] [place] [address] Dr. Keturah Fisher MCV (RBC) [Entitic vol] 96.9 fL Normal 81.0-99.0 [facility] Comment on above: Performed By: #### L IPA, CMP, CRP, NAT #### [facility] [address] [place] [address] Dr. Keturah Fisher MONO # 0.7 103/ul Normal 0.3-0.8 [facility] Comment on above: Performed By: #### L IPA, CMP, CRP, NAT #### [facility] [address] [place] [address] Dr. Keturah Fisher Monocytes/100 WBC (Bld) 5.6 % Normal 1.7-12.0 [facility] Comment on above: Performed By: #### L IPA, CMP, CRP, NAT #### [facility] [address] [place] [address] Dr. Keturah Fisher NEUT # 7.8 103/ul Critically high 1.4-6.5 [facility] Comment on above: Performed By: #### L IPA, CMP, CRP, NAT #### [facility] [address] [address] [address] Keturah Fisher Neutrophils/100 WBC (Bld) 67.3 % Normal 43.0-75.0 [facility] Comment on above: Performed By: #### L IPA, CMP, CRP, NAT #### [facility] [address] [place] [address] Dr. Keturah Fisher Platelet mean volume (Bld) [Entitic vol] 9.5 fL Normal 9.5-13.5 [facility] Comment on above: Performed By: #### L IPA, CMP, CRP, NAT #### [facility] [address] [place] [address] Dr. Keturah Fisher PLT 227 103/ul Normal 150-450 [facility] Comment on above: Performed By: #### L IPA, CMP, CRP, NAT #### [facility] [address] [place] [address] Dr. Keturah Fisher RBC 4.18 106/ul Critically low 4.20-5.40 [facility] Comment on above: Performed By: #### L IPA, CMP, CRP, NAT #### [facility] [address] [place] [address] Dr. Keturah Fisher WBC 11.5 103/ul Critically high 4.0-11.0 [facility] Comment on above: Performed By: #### L IPA, CMP, CRP, NAT #### [facility] [address] [place] [address] Dr. Keturah Fisher LIPASEon 06-13-2022 Lipase [Catalytic activity/Vol] 168.0 U/L Normal 73.0-393.0 [facility] Comment on above: Performed By: #### L IPA, CMP, CRP, NAT #### [facility] [address] [place] [address] Dr. Keturah Fisher PROF 14(COMP METB)on 023 Albumin [Mass/Vol] 3.6 g/dL Normal 3.4-5.0 [facility] Comment on above: Performed By: #### L IPA, CMP, CRP, NAT #### [facility] [address] [address] [address] Keturah Fisher Albumin/Globulin [Mass ratio] 1.1 {ratio} Normal [facility] Comment on above: Performed By: #### L IPA, CMP, CRP, NAT #### [facility] [address] [place] [address] Dr. Keturah Fisher ALP [Catalytic activity/Vol] 132 U/L Critically high 46-116 [facility] Comment on above: Performed By: #### L IPA, CMP, CRP, NAT #### [facility] [address] [place] [address] Dr. Keturah Fisher ALT [Catalytic activity/Vol] 20 U/L Normal 14-59 [facility] Comment on above: Performed By: #### L IPA, CMP, CRP, NAT #### [facility] [address] [place] [address] Dr. Keturah Fisher Anion gap [Moles/Vol] 13.7 mmol/L Normal [facility] Comment on above: Performed By: #### L IPA, CMP, CRP, NAT #### [facility] [address] [place] [address] Dr. Keturah Fisher AST [Catalytic activity/Vol] 19 U/L Normal 15-37 [facility] Comment on above: Performed By: #### L IPA, CMP, CRP, NAT #### [facility] [address] [place] [address] Dr. Keturah Fisher Bilirubin [Mass/Vol] 0.1 mg/dL Critically low 0.2-1.0 [facility] Comment on above: Performed By: #### L IPA, CMP, CRP, NAT #### [facility] [address] [place] [address] Dr. Keturah Fisher Calcium [Mass/Vol] 10.1 mg/dL Normal 8.5-10.1 [facility] Comment on above: Performed By: #### L IPA, CMP, CRP, NAT #### [facility] [address] [place] [address] Dr. Keturah Fisher Chloride [Moles/Vol] 104 mmol/L Normal 98-107 [facility] Comment on above: Performed By: #### L IPA, CMP, CRP, NAT #### [facility] [address] [address] [address] Keturah Fisher CO2 [Moles/Vol] 26.7 mmol/L Normal 21.0-32.0 [facility] Comment on above: Performed By: #### L IPA, CMP, CRP, NAT #### [facility] [address] [address] [address] Keturah Fisher Creatinine [Mass/Vol] 0.83 mg/dL Normal 0.55-1.02 [facility] Comment on above: Performed By: #### L IPA, CMP, CRP, NAT #### [facility] [address] [address] [address] Keturah Fisher EGFR-AF CITIZEN OF [place] >60 Normal >=60 [facility] Comment on above: Performed By: #### L IPA, CMP, CRP, NAT #### [facility] [address] [place] [address] Dr. Keturah Fisher EGFR-NON AF CITIZEN OF [place] >60 Normal >=60 [facility] Comment on above: Performed By: #### L IPA, CMP, CRP, NAT #### [facility] [address] [address] [address] Keturah Fisher Globulin (S) [Mass/Vol] 3.4 g/dL Normal [facility] Comment on above: Performed By: #### L IPA, CMP, CRP, NAT #### [facility] [address] [address] [address] Keturah Fisher Glucose [Mass/Vol] 115 mg/dL Critically high 74-106 [facility] Comment on above: Performed By: #### L IPA, CMP, CRP, NAT #### [facility] [address] [address] [address] Keturah Fisher Potassium [Moles/Vol] 3.4 mmol/L Critically low 3.5-5.1 [facility] Comment on above: Performed By: #### L IPA, CMP, CRP, NAT #### [facility] [address] [address] [address] Keturah Fisher Protein [Mass/Vol] 7.0 g/dL Normal 6.4-8.2 [facility] Comment on above: Performed By: #### L IPA, CMP, CRP, NAT #### [facility] [address] [address] [address] Keturah Fisher Sodium [Moles/Vol] 141 mmol/L Normal 136-145 [facility] Comment on above: Performed By: #### L IPA, CMP, CRP, NAT #### [facility] [address] [address] [address] Keturah Fisher Urea nitrogen [Mass/Vol] 9.0 mg/dL Normal 7.0-18.0 [facility] Comment on above: Performed By: #### L IPA, CMP, CRP, NAT #### [facility] [address] [address] [address] Keturah Fisher Urea nitrogen/Creatinine [Mass ratio] 10.8 mg/mg Normal [facility] Comment on above: Performed By: #### L IPA, CMP, CRP, NAT #### [facility] [address] [address] [address] Keturah Fisher XR ABD FLAT UP_PA [...] ION KRUSE Date: 2022-06-13 17:10 Normal [facility] AMYLASEon 03-29-2022 Amylase [Catalytic activity/Vol] 141 U/L Critically high 25-115 [facility] Comment on above: Performed By: #### L IVER, LIPA, BMP, NAT ####[facility] [id number] [address]Dr. Keturah Fisher CBC AUTO DIFFon 03-29-2022 BASO # 0.1 103/ul Normal 0.0-0.1 [facility] Comment on above: Performed By: #### L IPA, CMP, CRP, NAT #### [facility] [address] [address] [address] Keturah Fisher Basophils/100 WBC (Bld) 0.6 % Normal 0.2-2.0 [facility] Comment on above: Performed By: #### L IPA, CMP, CRP, NAT #### [facility] [address] [place] [address] Dr. Keturah Fisher EO # 0.1 103/ul Normal 0.0-0.7 [facility] Comment on above: Performed By: #### L IPA, CMP, CRP, NAT #### [facility] [address] [place] [address] Dr. Keturah Fisher Eosinophils/100 WBC (Bld) 0.7 % Critically low 0.9-7.0 [facility] Comment on above: Performed By: #### L IPA, CMP, CRP, NAT #### [facility] [address] [place] [address] Dr. Keturah Fisher Erythrocyte distribution width (RBC) [Ratio] 12.9 % Normal 11.0-15.0 [facility] Comment on above: Performed By: #### L IPA, CMP, CRP, NAT #### [facility] [address] [place] [address] Dr. Keturah Fisher Hematocrit (Bld) [Volume fraction] 39.7 % Normal 36.0-48.0 [facility] Comment on above: Performed By: #### L IPA, CMP, CRP, NAT #### [facility] [address] [place] [address] Dr. Keturah Fisher Hemoglobin (Bld) [Mass/Vol] 14.7 g/dL Normal 12.0-16.0 [facility] Comment on above: Performed By: #### L IPA, CMP, CRP, NAT #### [facility] [address] [address] [address] Keturah Fisher IG # 0.04 10e3/ul Critically high 0.00-0.03 [facility] Comment on above: Performed By: #### L IPA, CMP, CRP, NAT #### [facility] [address] [place] [address] Dr. Keturah Fisher IG % 0.4 % Normal 0.0-0.5 [facility] Comment on above: Performed By: #### L IPA, CMP, CRP, NAT #### [facility] [address] [place] [address] Dr. Keturah Fisher LYMPH # 2.1 103/ul Normal 1.2-3.8 [facility] Comment on above: Performed By: #### L IPA, CMP, CRP, NAT #### [facility] [address] [place] [address] Dr. Keturah Fisher Lymphocytes/100 WBC (Bld) 21.2 % Normal 20.5-60.0 [facility] Comment on above: Performed By: #### L IPA, CMP, CRP, NAT #### [facility] [address] [place] [address] Dr. Keturah Fisher MANUAL DIFF REQ NO Normal [facility] Comment on above: Performed By: #### L IPA, CMP, CRP, NAT #### [facility] [address] [place] [address] Dr. Keturah Fisher MCH (RBC) [Entitic mass] 33.0 pg Normal 26.7-34.0 [facility] Comment on above: Performed By: #### L IPA, CMP, CRP, NAT #### [facility] [address] [place] [address] Dr. Keturah Fisher MCHC (RBC) [Mass/Vol] 37.0 g/dL Critically high 29.9-35.2 [facility] Comment on above: Performed By: #### L IPA, CMP, CRP, NAT #### [facility] [address] [place] [address] Dr. Keturah Fisher MCV (RBC) [Entitic vol] 89.0 fL Normal 81.0-99.0 [facility] Comment on above: Performed By: #### L IPA, CMP, CRP, NAT #### [facility] [address] [address] [address] Keturah Fisher MONO # 1.0 103/ul Critically high 0.3-0.8 [facility] Comment on above: Performed By: #### L IPA, CMP, CRP, NAT #### [facility] [address] [place] [address] Dr. Keturah Fisher Monocytes/100 WBC (Bld) 10.3 % Normal 1.7-12.0 [facility] Comment on above: Performed By: #### L IPA, CMP, CRP, NAT #### [facility] [address] [place] [address] Dr. Keturah Fisher NEUT # 6.5 103/ul Normal 1.4-6.5 [facility] [place] Comment on above: Performed By: #### L IPA, CMP, CRP, NAT #### [facility] [place] [facility] [address] [place] [address] Dr. Keturah Fisher Neutrophils/100 WBC (Bld) 66.8 % Normal 43.0-75.0 [facility] [place] Comment on above: Performed By: #### L IPA, CMP, CRP, NAT #### [facility] [place] [facility] [address] [place] [address] Dr. Keturah Fisher Platelet mean volume (Bld) [Entitic vol] 9.2 fL Critically low 9.5-13.5 [facility] [place] Comment on above: Performed By: #### L IPA, CMP, CRP, NAT #### [facility] [place] [facility] [address] [place] [address] Dr. Keturah Fisher PLT 229 103/ul Normal 150-450 [facility] [place] Comment on above: Performed By: #### L IPA, CMP, CRP, NAT #### [facility] [place] [facility] [address] [place] [address] Dr. Keturah Fisher RBC 4.46 106/ul Normal 4.20-5.40 [facility] [place] Comment on above: Performed By: #### L IPA, CMP, CRP, NAT #### [facility] [place] [facility] [address] [address] [address] Keturah Fisher WBC 9.7 103/ul Normal 4.0-11.0 [facility] Comment on above: Performed By: #### L IPA, CMP, CRP, NAT #### [facility] [place] [facility] [address] [address] [address] Keturah Fisher LACTATE/LACTIC ACIDon 2022 Lactate [Moles/Vol] 0.5 mmol/L Normal 0.4-1.9 [facility] Comment on above: Performed By: #### L IPA, CMP, CRP, NAT #### [facility] [place] [facility] [address] [address] [address] Keturah Fisher LIPASEon 03-29-2022 Lipase [Catalytic activity/Vol] 308.0 U/L Normal 73.0-393.0 [facility] Comment on above: Performed By: #### L IVER, LIPA, BMP, NAT ####[facility] [place] [id number] [address]DrGopal Fisher LIVER PROFILEon 03-29-2022 Albumin [Mass/Vol] 3.3 g/dL Critically low 3.4-5.0 [facility] Comment on above: Performed By: #### L IVER, LIPA, BMP, NAT ####[facility] [place] [id number] [address]DrGopal Fisher Albumin/Globulin [Mass ratio] 0.8 {ratio} Normal [facility] Comment on above: Performed By: #### L IVER, LIPA, BMP, NAT ####[facility] [place] [id number] [address]Dr. Keturah Fisher ALP [Catalytic activity/Vol] 182 U/L Critically high 46-116 [facility] Comment on above: Performed By: #### L IVER, LIPA, BMP, NAT ####[facility] [place] [id number] [address]Dr. Keturah Fisher ALT [Catalytic activity/Vol] 16 U/L Normal 14-59 [facility] Comment on above: Performed By: #### L IVER, LIPA, BMP, NAT ####[facility] [place] [id number] [address]Dr. Keturah Fisher AST [Catalytic activity/Vol] 26 U/L Normal 15-37 [facility] Comment on above: Performed By: #### L IVER, LIPA, BMP, NAT ####[facility] [place] [id number] [address]Dr. Keturah Fisher BILI, CONJUGATED 0.0 mg/dL Normal 0.0-0.2 [facility] Comment on above: Performed By: #### L IVER, LIPA, BMP, NAT ####[facility] [place] [id number] [address]Dr. Keturah Fisher Bilirubin [Mass/Vol] 0.3 mg/dL Normal 0.2-1.0 [facility] Comment on above: Performed By: #### L IVER, LIPA, BMP, NAT ####[facility] [place] [id number] [place], [place] [address]Dr. Keturah Fisher Globulin (S) [Mass/Vol] 3.9 g/dL Normal [facility] Comment on above: Performed By: #### L IVER, LIPA, BMP, NAT ####[facility] [place] [id number] [address]Dr. Keturah Fisher Protein [Mass/Vol] 7.2 g/dL Normal 6.4-8.2 [facility] Comment on above: Performed By: #### L IVER, LIPA, BMP, NAT ####[facility] [place] [id number] [address]Dr. Keturah Fisher PROF CHEM 8 (BAS METB)on Anion gap [Moles/Vol] 14.6 mmol/L Normal [facility] Comment on above: Performed By: #### L IVER, LIPA, BMP, NAT ####[facility] [place] [id number] [address]Dr. Keturah Fisher Calcium [Mass/Vol] 10.1 mg/dL Normal 8.5-10.1 [facility] Comment on above: Performed By: #### L IVER, LIPA, BMP, NAT ####[facility] [place] [id number] [address]Dr. Keturah Fisher Chloride [Moles/Vol] 104 mmol/L Normal 98-107 [facility] [place] Comment on above: Performed By: #### L IVER, LIPA, BMP, NAT ####[facility] [place] [id number] [address]Dr. Keturah Fisher CO2 [Moles/Vol] 24.8 mmol/L Normal 21.0-32.0 [facility] [place] Comment on above: Performed By: #### L IVER, LIPA, BMP, NAT ####[facility] [place] [id number] [address]Dr. Keturah Fisher Creatinine [Mass/Vol] 0.61 mg/dL Normal 0.55-1.02 [facility] Comment on above: Performed By: #### L IVER, LIPA, BMP, NAT ####[facility] [place] [id number] [place], [place] [address]Dr. Keturah Fisher EGFR-AF CITIZ[place] >60 Normal >=60 [facility] [place] Comment on above: Performed By: #### L IVER, LIPA, BMP, NAT ####[facility] [place] [id number] [place], [place] [address]Dr. Keturah Fisher EGFR-NON AF CITIZEN OF [place] >60 Normal >=60 [facility] Comment on above: Performed By: #### L IVER, LIPA, BMP, NAT ####[facility] [place] [id number] [address]Dr. Keturah Fisher Glucose [Mass/Vol] 98 mg/dL Normal 74-106 [facility] Comment on above: Performed By: #### L IVER, LIPA, BMP, NAT ####[facility] [place] [id number] [place], [place] [address]Dr. Keturah Fisher Potassium [Moles/Vol] 4.4 mmol/L Normal 3.5-5.1 [facility] [place] Comment on above: Performed By: #### L IVER, LIPA, BMP, NAT ####[facility] [place] [id number] [id number]. Keturah Fisher Sodium [Moles/Vol] 139 mmol/L Normal 136-145 [facility] Comment on above: Performed By: #### L ROB CHIN BMP, NAT ####[facility] [place] [id number] [place], [place] [address]Re. Keturah Fisher Urea nitrogen [Mass/Vol] 7.0 mg/dL Normal 7.0-18.0 [facility] Comment on above: Performed By: #### L ROB CHIN BMP, NAT ####[facility] [place] [id number] [place], [place] [address]Bs. Keturah Fisher Urea nitrogen/Creatinine [Mass ratio] 11.5 mg/mg Normal [facility] Comment on above: Performed By: #### L ROB CHIN BMP, NAT ####[facility] [place] [address] [place], [place] [address]Ko. Keturah Fisher Albumin [Mass/volume] in Ser um or PlasmaOrdered By: Agustin Llanes on 03-22-2022 Albumin [Mass/Vol] 4.1 g/dL 3.2-5.[address] [facility] Automated erythrocytes count in urine sediment (number/area)Ordered By: Agustin Llanes on 03-22-2022 RBC Auto (Urine sed) [#/Area] 3-4 [HPF] 0-4 [facility] Automated leukocytes count i n urine sediment (number/area)Ordered By: gAustin Llanes on 03-22-2022 WBC Auto (Urine sed) [#/Area] 10-19 [HPF] 0-4 [facility] Basophils Auto (Bld) [#/Vol] Ordered By: Agustin Llanes on 03-22-2022 Basophils (Bld) [#/Vol] 0.1 10*3/uL 0.0-0.2 [facility] Basophils/100 WBC Auto (Bld) Ordered By: Agustin Llanes on 03-22-2022 Basophils/100 WBC (Bld) 0.9 % . [facility] Bilirubin Test strip Ql (U)O rdered By: Agustin Llanes on 03-22-2022 Bilirubin Ql (U) Negative Negative [facility] Color Auto (U)Ordered By: Vita Llanes on 03-22-2022 Color (U) Yellow Yellow [facility] Creatinine and Glomerular fi ltration rate.predicted panel (S/P/Bld)Ordered By: Agustin Llanes on 03-22-2022 Creatinine [Mass/Vol] 0.74 mg/dL 0.44-1.03 [facility] Direct bilirubin measurement Ordered By: Agustin Llanes on 03-22-2022 Bilirubin.direct [Mass/Vol] 0.3 mg/dL 0.0-0.4 [facility] Eosinophils Auto (Bld) [#/Vo l]Ordered By: Agustin Llanes on 03-22-2022 Eosinophils (Bld) [#/Vol] 0.1 10*3/uL 0.0-0.45 [facility] Eosinophils/100 WBC Auto (Bl d)Ordered By: Agustin Llanes on 03-22-2022 Eosinophils/100 WBC (Bld) 0.7 % . [facility] Erythrocyte distribution wid th Auto (RBC) [Ratio]Ordered By: Agustin Llanes on 03-22-2022 Erythrocyte distribution width (RBC) [Ratio] 13.9 % 11.9-15.3 [facility] Estimated glomerular filtrat ion rate (GFR) non- AmericanOrdered By: Agustin Llanes on 03-22-2022 GFR/1.73 sq M.predicted among non-blacks MDRD (S/P/Bld) [Vol rate/Area] > 60 mL/Min [facility] Globulin Calc (S) [Mass/Vol] Ordered By: Agustin Llanes on 03-22-2022 Globulin (S) [Mass/Vol] 3.1 g/dL [facility] HCG ( test) IA.rapi d Ql (U)Ordered By: Agustin Llanes on 03-22-2022 HCG ( test) Ql (U) Negative [facility] Hematocrit Auto (Bld) [Volum e fraction]Ordered By: Agustin Llanes on 03-22-2022 Hematocrit (Bld) [Volume fraction] 45.7 % 34.0-46.4 [facility] Hemoglobin [Mass/volume] in BloodOrdered By: Agustin Llanes on 03-22-2022 Hemoglobin (Bld) [Mass/Vol] 15.2 g/dL 11.8-15.4 [facility] Ketones Auto test strip (U) [Mass/Vol]Ordered By: Agustin Llanes on 03-22-2022 Ketones (U) [Mass/Vol] Negative Negative [facility] - Chemistry and C hemistry - challengeOrdered By: Agustin Llanes on 03-22-2022 Lipase [Catalytic activity/Vol] 122.0 U/L 22-51 [facility] Laboratory - UrinalysisOrder ed By: Agustin Llanes on 03-22-2022 Hyaline casts LM Ql (Urine sed) 0-8 [LPF] 0-8 [facility] Leukocytes [#/volume] correc aurelia for nucleated erythrocytes in Blood by Automated counOrdered By: Agustin Llanes on 03-22-2022 WBC corrected for nucl RBC Auto (Bld) [#/Vol] 12.4 10*3/uL 3.8-11.6 [facility] Lymphocytes Auto (Bld) [#/Vo l]Ordered By: Agustin Llanes on 03-22-2022 Lymphocytes (Bld) [#/Vol] 2.2 10*3/uL 1.00-4.8 [facility] Lymphocytes/100 WBC Auto (Bl d)Ordered By: Agustin Llanes on 03-22-2022 Lymphocytes/100 WBC (Bld) 18.0 % . [facility] MCH Auto (RBC) [Entitic mass ]Ordered By: Agustin Llanes on 03-22-2022 MCH (RBC) [Entitic mass] 32.5 pg 24.7-34.3 [facility] MCHC Auto (RBC) [Mass/Vol]Or dered By: Agustin Llanes on 03-22-2022 MCHC (RBC) [Mass/Vol] 33.2 g/dL 32.0-35.[address] [facility] MCV Auto (RBC) [Entitic vol] Ordered By: Agustin Llanes on 03-22-2022 MCV (RBC) [Entitic vol] 98.0 fL 80-100 [facility] Monocyte distribution width [Entitic volume] in Blood by AutomatedOrdered By: Agustin Llanes on 03-22-2022 Monocyte distribution width Auto (Bld) [Entitic vol] 18.78 % 0.00-20.00 [facility] Monocytes Auto (Bld) [#/Vol] Ordered By: Agustin Llanes on 03-22-2022 Monocytes (Bld) [#/Vol] 1.0 10*3/uL 0.0-0.8 [facility] Monocytes/100 WBC Auto (Bld) Ordered By: Agustin Llanes on 03-22-2022 Monocytes/100 WBC (Bld) 8.0 % . [facility] Neutrophils Auto (Bld) [#/Vo l]Ordered By: Agustin Llanes on 03-22-2022 Neutrophils (Bld) [#/Vol] 9.0 10*3/uL 1.8-7.7 [facility] Neutrophils/100 WBC Auto (Bl d)Ordered By: Agustin Llanes on 03-22-2022 Neutrophils/100 WBC (Bld) 72.4 % . [facility] Nitrite Test strip Ql (U)Ord ered By: Agustin Llanes on 03-22-2022 Nitrite Ql (U) Positive Negative [facility] No Panel InformationOrdered By: Agustin Llanes on 03-22-2022 Estimated GFR () > 60 mL/Min [facility] Comment on above: GFR estimated refere nce range: According to KDOQI guidelines, <60 ml/min/1.73m2 is sufficient to diagnose a patient with chronic kidney disease. Pharmacy Creatinine Clearance (Chem 70.34 [facility] Nucleated erythrocytes [Pres ence] in Blood by Automated countOrdered By: Agustin Llanes on 03-22-2022 Nucleated RBC Auto Ql (Bld) 0.0 /100{WBC} 0-0.5 [facility] Platelet mean volume Auto (B ld) [Entitic vol]Ordered By: Agustin Llanes on 03-22-2022 Platelet mean volume (Bld) [Entitic vol] 8.0 fL 6.3-10.7 [facility] Platelets Auto (Bld) [#/Vol] Ordered By: Agustin Llanes on 03-22-2022 Platelets (Bld) [#/Vol] 266 10*3/uL 150-450 [facility] Protein Auto test strip (U) [Mass/Vol]Ordered By: Agustin Llanes on 03-22-2022 Protein (U) [Mass/Vol] Negative Negative [facility] Protein [Mass/volume] in Ser um or PlasmaOrdered By: Agustin Llanes on 03-22-2022 Protein [Mass/Vol] 7.2 g/dL 6.1-7.[address] [facility] RBC Auto (Bld) [#/Vol]Ordere d By: Agustin Llanes on 03-22-2022 RBC (Bld) [#/Vol] 4.67 10*6/uL 3.60-5.00 [facility] Serum or plasma alanine hughes otransferase measurement without P-5'-P (enzymatic activiOrdered By: Agustin Llanes on 03-22-2022 ALT No additional P-5'-P [Catalytic activity/Vol] 19 U/L 10-60 [facility] Serum or plasma albumin/glob ulin mass ratioOrdered By: Agustin Llanes on 03-22-2022 Albumin/Globulin [Mass ratio] 1.3 {ratio} [facility] Serum or plasma alkaline jaqueline sphatase measurement (enzymatic activity/volume)Ordered By: Agustin Llanes on 03-22-2022 ALP [Catalytic activity/Vol] 156 U/L 32-92 [facility] Serum or plasma anion gap de terminationOrdered By: Agustin Llanes on 03-22-2022 Anion gap [Moles/Vol] 12.6 mmol/L 6.0-15.0 [facility] Serum or plasma aspartate am inotransferase measurement (enzymatic activity/volume)Ordered By: Agustin Llanes on 03-22-2022 AST [Catalytic activity/Vol] 29 U/L 10-42 [facility] Serum or plasma calcium priscilla urement (mass/volume)Ordered By: Agustin Llanes on 03-22-2022 Calcium [Mass/Vol] 9.9 mg/dL 8.2-10.[address] [facility] Serum or plasma chloride daron surement (moles/volume)Ordered By: Agustin Llanes on 03-22-2022 Chloride [Moles/Vol] 103 mmol/L 95-114 [facility] Serum or plasma glucose priscilla urement (mass/volume)Ordered By: Agustin Llanes on 03-22-2022 Glucose [Mass/Vol] 106 mg/dL 70-[address] [facility] Comment on above: ADA recommended refe rence rangeRandom Glucose Reference Range is dependent on time and content of last meal. Glucose of more than 200 mg/dL in a nonstressed, ambulatory subject supports the diagnosis of Diabetes Mellitus. Serum or plasma non-glucuron idated bilirubin measurement (mass/volume)Ordered By: Agustin Llanes on 03-22-2022 Bilirubin.indirect [Mass/Vol] 0.2 mg/dL [facility] Serum or plasma potassium me asurement (moles/volume)Ordered By: Agustin Llanes on 03-22-2022 Potassium [Moles/Vol] 4.5 mmol/L 3.5-5.1 [facility] Serum or plasma sodium measu rement (moles/volume)Ordered By: Agustin Llanes on 03-22-2022 Sodium [Moles/Vol] 138 mmol/L 136-[address] [facility] Serum or plasma total biliru bin measurement (mass/volume)Ordered By: Agustin Llanes on 03-22-2022 Bilirubin [Mass/Vol] 0.5 mg/dL 0.3-1.2 [facility] Serum or plasma total carbon dioxide measurement (moles/volume)Ordered By: Agustin Llanes on 03-22-2022 CO2 [Moles/Vol] 26.9 mmol/L 22.0-30.[address] [facility] Serum or plasma urea nitroge n measurement (mass/volume)Ordered By: Agustin Llanes on 03-22-2022 Urea nitrogen [Mass/Vol] 8 mg/dL 9- [facility] Specific gravity Auto test s trip (U) [Rel density]Ordered By: Agustin Llanes on 03-22-2022 Specific gravity (U) [Rel density] 1.011 1.001-1.03 0 [facility] Squamous epithelial cells de tection in urine sediment by light microscopyOrdered By: Agustin Llanes on 03-22-2022 Epithelial cells.squamous LM Ql (Urine sed) 1-2 [HPF] 0-2 [facility] Urine bacteria detection by automated methodOrdered By: Agustin Llanes on 03-22-2022 Bacteria Auto Ql (U) 1+ None Seen [facility] Urine clarity by refractomet ry automatedOrdered By: Agustin Lalnes on 03-22-2022 Clarity Refractometry automated (U) Clear Clear [facility] Urine glucose measurement by automated test strip (mass/volume)Ordered By: Agustin Llanes on 03-22-2022 Glucose Auto test strip (U) [Mass/Vol] Normal mg/dL Normal [facility] Urine hemoglobin detection b y automated test stripOrdered By: Agustin Llanes on 03-22-2022 Hemoglobin Auto test strip Ql (U) Negative Negative [facility] Urine leukocyte esterase det ection by automated test stripOrdered By: Agustin Llanes on 03-22-2022 Leukocyte esterase Auto test strip Ql (U) 2+ Negative [facility] Urobilinogen Auto test strip (U) [Mass/Vol]Ordered By: Agustin Llanes on 03-22-2022 Urobilinogen (U) [Mass/Vol] Normal mg/dL Normal [facility] WBC Auto (Bld) [#/Vol]Ordere d By: Agustin Llanes on 03-22-2022 WBC (Bld) [#/Vol] 12.4 10*3/uL 3.8-11.6 [facility] pH Auto test strip (U)Ordere d By: Agustin Llanes on 03-22-2022 pH (U) 5.5 [pH] 5.0-9.0 [facility] AMYLASEon 03-19-2022 Amylase [Catalytic activity/Vol] 297 U/L Critically high 25-115 [facility] Comment on above: Performed By: #### L IPA, CMP, CRP, NAT #### [facility] [place] [facility] [address] [place] [address] Dr. Keturah Fisher CBC AUTO DIFFon 03-19-2022 BASO # 0.1 103/ul Normal 0.0-0.1 [facility] [place] Comment on above: Performed By: #### L IPA, CMP, CRP, NAT #### [facility] [place] [facility] [address] [address] [address] Keturah Fisher Basophils/100 WBC (Bld) 0.6 % Normal 0.2-2.0 [facility] Comment on above: Performed By: #### L IPA, CMP, CRP, NAT #### [facility] [place] [facility] [address] [address] [address] Keturah Fisher EO # 0.1 103/ul Normal 0.0-0.7 [facility] [place] Comment on above: Performed By: #### L IPA, CMP, CRP, NAT #### [facility] [place] [facility] [address] [place] [address] Dr. Keturah Fisher Eosinophils/100 WBC (Bld) 0.5 % Critically low 0.9-7.0 [facility] Comment on above: Performed By: #### L IPA, CMP, CRP, NAT #### [facility] [place] [facility] [address] [place] [address] Dr. Keturah Fisher Erythrocyte distribution width (RBC) [Ratio] 13.4 % Normal 11.0-15.0 [facility] Comment on above: Performed By: #### L IPA, CMP, CRP, NAT #### [facility] [place] [facility] [address] [place] [address] Dr. Keturah Fisher Hemoglobin (Bld) [Mass/Vol] 15.7 g/dL Normal 12.0-16.0 [facility] Comment on above: Performed By: #### L IPA, CMP, CRP, NAT #### [facility] [place] [facility] [address] [place] [address] Dr. Keturah Fisher IG # 0.06 10e3/ul Critically high 0.00-0.03 [facility] Comment on above: Performed By: #### L IPA, CMP, CRP, NAT #### [facility] [place] [facility] [address] [place] [address] Dr. Keturah Fisher IG % 0.4 % Normal 0.0-0.5 [facility] Comment on above: Performed By: #### L IPA, CMP, CRP, NAT #### [facility] [place] [facility] [address] [place] [address] Dr. Keturah Fisher LYMPH # 2.6 103/ul Normal 1.2-3.8 [facility] [place] Comment on above: Performed By: #### L IPA, CMP, CRP, NAT #### [facility] [place] [facility] [address] [place] [address] Dr. Keturah Fisher Lymphocytes/100 WBC (Bld) 18.1 % Critically low 20.5-60.0 [facility] Comment on above: Performed By: #### L IPA, CMP, CRP, NAT #### [facility] [place] [facility] [address] [place] [address], [place] [id number] Dr. Keturah Fisher MANUAL DIFF REQ NO Normal [facility] Comment on above: Performed By: #### L IPA, CMP, CRP, NAT #### [facility] [place] [facility] [address] [place] [address] Dr. Keturah Fisher MCH (RBC) [Entitic mass] 32.4 pg Normal 26.7-34.0 [facility] [place] Comment on above: Performed By: #### L IPA, CMP, CRP, NAT #### [facility] [place] [facility] [address] [place] [address] Dr. Keturah Fisher MCHC (RBC) [Mass/Vol] 32.5 g/dL Normal 29.9-35.2 [facility] [place] Comment on above: Performed By: #### L IPA, CMP, CRP, NAT #### [facility] [place] [facility] [address] [place] [address] Dr. Keturah Fisher MCV (RBC) [Entitic vol] 99.8 fL Critically high 81.0-99.0 [facility] Comment on above: Performed By: #### L IPA, CMP, CRP, NAT #### [facility] [place] [facility] [address] [place] [address] Dr. Keturah Fisher MONO # 0.9 103/ul Critically high 0.3-0.8 [facility] Comment on above: Performed By: #### L IPA, CMP, CRP, NAT #### [facility] [place] [facility] [address] [place] [address] Dr. Keturah Fisher Monocytes/100 WBC (Bld) 5.9 % Normal 1.7-12.0 [facility] [place] Comment on above: Performed By: #### L IPA, CMP, CRP, NAT #### [facility] [place] [facility] [address] [place] [address] Dr. Keturah Fisher NEUT # 10.8 103/ul Critically high 1.4-6.5 [facility] [place] Comment on above: Performed By: #### L IPA, CMP, CRP, NAT #### [facility] [place] [facility] [address] [place] [address] Dr. Keturah Fisher Neutrophils/100 WBC (Bld) 74.5 % Normal 43.0-75.0 [facility] Comment on above: Performed By: #### L IPA, CMP, CRP, NAT #### [facility] [place] [facility] [address] [place] [address] Dr. Keturah Fisher Platelet mean volume (Bld) [Entitic vol] 9.7 fL Normal 9.5-13.5 [facility] Comment on above: Performed By: #### L IPA, CMP, CRP, NAT #### [facility] [place] [facility] [address] [place] [address] Dr. Keturah Fisher PLT 279 103/ul Normal 150-450 [facility] [place] Comment on above: Performed By: #### L IPA, CMP, CRP, NAT #### [facility] [place] [facility] [address] [place] [address] Dr. Keturah Fisher RBC 4.84 106/ul Normal 4.20-5.40 [facility] Comment on above: Performed By: #### L IPA, CMP, CRP, NAT #### [facility] [place] [facility] [address] [place] [address] Dr. Keturah Fisher WBC 14.5 103/ul Critically high 4.0-11.0 [facility] Comment on above: Performed By: #### L IPA, CMP, CRP, NAT #### [facility] [place] [facility] [address] [place] [address] [address] ABD/PELVIS WO CONon [...] AGUSTIN HIGHTOWER Date: 2022-03-19 19:10 Normal [facility] [place] LIPASEon 03-19-2022 Lipase [Catalytic activity/Vol] 1573.0 U/L Critically high 73.0-393.0 [facility] Comment on above: Performed By: #### L IPA, CMP, CRP, NAT #### [facility] [place] [facility] [address] [address] [address] Keturah Fisher PROF 14(COMP METB)on 023 Albumin [Mass/Vol] 4.3 g/dL Normal 3.4-5.0 [facility] Comment on above: Performed By: #### L IPA, CMP, CRP, NAT #### [facility] [place] [facility] [address] [address] [address] Keturah Fisher Albumin/Globulin [Mass ratio] 1.1 {ratio} Normal [facility] Comment on above: Performed By: #### L IPA, CMP, CRP, NAT #### [facility] [place] [facility] [address] [address] [address] Keturah Fisher ALP [Catalytic activity/Vol] 222 U/L Critically high 46-116 [facility] Comment on above: Performed By: #### L IPA, CMP, CRP, NAT #### [facility] [place] [facility] [address] [address] [address] Keturah Fisher ALT [Catalytic activity/Vol] 18 U/L Normal 14-59 [facility] Comment on above: Performed By: #### L IPA, CMP, CRP, NAT #### [facility] [place] [facility] [address] [address] [address] Keturah Fisher Anion gap [Moles/Vol] 10.7 mmol/L Normal Th [facility] Comment on above: Performed By: #### L IPA, CMP, CRP, NAT #### [facility] [place] [facility] [address] [place] [address] Dr. Keturah Fisher AST [Catalytic activity/Vol] 19 U/L Normal 15-37 [facility] Comment on above: Performed By: #### L IPA, CMP, CRP, NAT #### [facility] [place] [facility] [address] [place] [address] Dr. Keturah Fisher Bilirubin [Mass/Vol] 0.2 mg/dL Normal 0.2-1.0 [facility] Comment on above: Performed By: #### L IPA, CMP, CRP, NAT #### [facility] [place] [facility] [address] [place] [address] Dr. Keturah Fisher Calcium [Mass/Vol] 10.2 mg/dL Critically high 8.5-10.1 [facility] Comment on above: Performed By: #### L IPA, CMP, CRP, NAT #### [facility] [place] [facility] [address] [place] [address] Dr. Keturah Fisher Chloride [Moles/Vol] 101 mmol/L Normal 98-107 [facility] Comment on above: Performed By: #### L IPA, CMP, CRP, NAT #### [facility] [place] [facility] [address] [place] [address] Dr. Keturah Fisher CO2 [Moles/Vol] 29.1 mmol/L Normal 21.0-32.0 [facility] Comment on above: Performed By: #### L IPA, CMP, CRP, NAT #### [facility] [place] [facility] [address] [address] [address] Keturah Fisher Creatinine [Mass/Vol] 0.73 mg/dL Normal 0.55-1.02 [facility] Comment on above: Performed By: #### L IPA, CMP, CRP, NAT #### [facility] [place] [facility] [address] [address] [address] Keturah Fisher EGFR-AF CITIZEN OF [place] >60 Normal >=60 [facility] Comment on above: Performed By: #### L IPA, CMP, CRP, NAT #### [facility] [place] [facility] [address] [address] [address] Keturah Fisher EGFR-NON AF CITIZEN OF [place] >60 Normal >=60 [facility] Comment on above: Performed By: #### L IPA, CMP, CRP, NAT #### [facility] [place] [facility] [address] [address] [address] Keturah Fisher Globulin (S) [Mass/Vol] 4.0 g/dL Normal [facility] Comment on above: Performed By: #### L IPA, CMP, CRP, NAT #### [facility] [place] [facility] [address] [address] [address] Keturah Fisher Glucose [Mass/Vol] 92 mg/dL Normal 74-106 [facility] Comment on above: Performed By: #### L IPA, CMP, CRP, NAT #### [facility] [place] [facility] [address] [address] [address] Keturah Fisher Potassium [Moles/Vol] 3.8 mmol/L Normal 3.5-5.1 [facility] Comment on above: Performed By: #### L IPA, CMP, CRP, NAT #### [facility] [place] [facility] [address] [address] [address] Keturah Fisher Protein [Mass/Vol] 8.3 g/dL Critically high 6.4-8.2 [facility] Comment on above: Performed By: #### L IPA, CMP, CRP, NAT #### [facility] [place] [facility] [address] [address] [address] Ketuarh Fisher Sodium [Moles/Vol] 137 mmol/L Normal 136-145 [facility] Comment on above: Performed By: #### L IPA, CMP, CRP, NAT #### [facility] [place] [facility] [address] [address] [address] Keturah Fisher Urea nitrogen [Mass/Vol] 10.0 mg/dL Normal 7.0-18.0 [facility] Comment on above: Performed By: #### L IPA, CMP, CRP, NAT #### [facility] [place] [facility] [address] [address] [address] Keturah Fisher Urea nitrogen/Creatinine [Mass ratio] 13.7 mg/mg Normal [facility] Comment on above: Performed By: #### L IPA, CMP, CRP, NAT #### [facility] [place] [facility] [address] [address] [address] Keturah Fisher PROTIMEon 03-19-2022 INR Coag (PPP) [Relative time] {INR} Normal [facility] Comment on above: Performed By: #### P TT, PT ####[facility] [place] [id number] [place], [place] [address]Dr. Keturah Fisher INR GUIDELINES SEE BELOW Normal [facility] Comment on above: Result Comment: KARLY RED INR: 2.0 - 3.0 CONDITIONS NOT LISTED BELOW 2.5 - 3.5 FOR PROSTHETIC HEART VALVE REPLACEMENT 2.5 - 3.5 RECURRENT THROMBOSIS Performed By: #### P TT, PT ####[facility] [place] [address] [address]Dr. Keturah Fisher PT Coag (PPP) [Time] 9.4 s Normal 9.0-11.6 [facility] Comment on above: Performed By: #### P TT, PT ####[facility] [place] [id number] [address]Dr. Keturah Fisher PTTon 03-19-2022 aPTT Coag (Bld) [Time] 26.1 s Normal 22.3-36.2 [facility] Comment on above: Performed By: #### P TT, PT ####[facility] [place] [id number] [address]Dr. Keturah Fisher TROPONIN, HIGH SENSITIVITYon 03-19-2022 HSTROP 4.0 pg/mL Normal 4.0-51.3 [facility] [place] Comment on above: Result Comment: CUT- OFF POINTS HAVE BEEN ESTABLISHED BASED ON THE FOURTH UNIVERSAL DEFINITIONS OF MYOCARDIAL INFARCTION. THE UPPER REFERENCE LIMIT (URL) OF TROPONIN, DEFINED THE 99TH PERCENTILE OF cTnI DISTRIBUTION IN A REFERENCE POPULATION, HAS BEEN CONFIRMED THE DECISION THRESHOLD FOR PR DIAGNOSIS. Performed By: #### L IPA, CMP, CRP, NAT #### [facility] [place] [facility] [address] [place], [place] [address] Dr. 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 Refer to note in patient chart for documentation of history and physical. Referring MD: Elie iNchols MD (Referring MD) Medicines: Monitored Anesthesia Care [...] verified by the physician, the nurse, the ivf embryologist and the optical manufacturing technician in the procedure room. Mental Status [...] si (more content not included)... LAB, [facility] Radiology Study observation (narrative) [facility] BONE DENSITY AXIAL (HIP, PEL VIS, [...] interpreted this study is a Certified Clinical Professor Of Vegetable Science by the International Society of Clinical Densitometry Maulik Reed M.D., CCD. OLOGY EXAM: BONE DENSITY A XIAL (HIP, PELVIS, SPINE) 01/27/2022 15:34 PM TECHNIQUE: DXA scanning using a [employer] bone densitometer at the [facility] was performed on 01/27/2022 15:34 PM [...] 15:34 PM TECHNIQUE: DXA scanning using a [employer] bone densitometer at the [facility] was performed on 01/27/2022 15:34 PM [...] interpreted this study is a Certified Clinical Professor Of Vegetable Science by the International Society of Clinical Densitometry Maulik Reed M.D., CCD. [facility] Radiology Study observation (narrative) [facility] BONE DENSITY AXIAL (HIP, PEL VIS, SPINE)Ordered By: Maulik Reed on 01-27-2022 [facility] Work Phone: CBC AUTO DIFFon 01-15-2022 BASO # 0.1 103/ul Normal 0.0-0.1 [facility] Comment on above: Performed By: #### C BC ####[facility] [place] [address] [address]Dr. Keturah Fisher Basophils/100 WBC (Bld) 0.9 % Normal 0.2-2.0 [facility] [place] Comment on above: Performed By: #### C BC ####[facility] [place] [address] [address]Dr. Keturah Fisher EO # 0.2 103/ul Normal 0.0-0.7 [facility] [place] Comment on above: Performed By: #### C BC ####[facility] [place] [address] [address]Dr. Keturah Fisher Eosinophils/100 WBC (Bld) 2.8 % Normal 0.9-7.0 [facility] [place] Comment on above: Performed By: #### C BC ####[facility] [place] [address] [id number]. Keturah Fisher Erythrocyte distribution width (RBC) [Ratio] 12.9 % Normal 11.0-15.0 [facility] [place] Comment on above: Performed By: #### C BC ####[facility] [place] [id number] [address]Dr. Keturah Fisher Hematocrit (Bld) [Volume fraction] 41.7 % Normal 36.0-48.0 [facility] [place] Comment on above: Performed By: #### C BC ####[facility] [place] [address] [address]Dr. Keturah Fisher Hemoglobin (Bld) [Mass/Vol] 14.0 g/dL Normal 12.0-16.0 [facility] [place] Comment on above: Performed By: #### C BC ####[facility] [place] [address] [address]Dr. Keturah Fisher IG # 0.01 10e3/ul Normal 0.00-0.03 [facility] Comment on above: Performed By: #### C BC ####[facility] [place] [address] [address]Dr. Keturah Fisher IG % 0.1 % Normal 0.0-0.5 [facility] [place] Comment on above: Performed By: #### C BC ####[facility] [place] [address] [address]Dr. Keturah Fisher LYMPH # 2.4 103/ul Normal 1.2-3.8 [facility] [place] Comment on above: Performed By: #### C BC ####[facility] [place] [address] [address]Dr. Keturah Fisher Lymphocytes/100 WBC (Bld) 32.0 % Normal 20.5-60.0 [facility] [place] Comment on above: Performed By: #### C BC ####[facility] [place] [address] [address]Dr. Elisaeli Fisher MANUAL DIFF REQ NO Normal [facility] Comment on above: Performed By: #### C BC ####[facility] [place] [address] [address]Dr. Keturah Fisher MCH (RBC) [Entitic mass] 32.6 pg Normal 26.7-34.0 [facility] [place] Comment on above: Performed By: #### C BC ####[facility] [place] [address] [address]Dr. Keturah Fisher MCHC (RBC) [Mass/Vol] 33.6 g/dL Normal 29.9-35.2 [facility] [place] Comment on above: Performed By: #### C BC ####[facility] [place] [address] [address]Dr. Keturah Fisher MCV (RBC) [Entitic vol] 97.0 fL Normal 81.0-99.0 [facility] [place] Comment on above: Performed By: #### C BC ####[facility] [place] [address] [id number]. Keturah Fisher MONO # 0.7 103/ul Normal 0.3-0.8 [facility] [place] Comment on above: Performed By: #### C BC ####[facility] [place] [address] [address]Dr. Keturah Fisher Monocytes/100 WBC (Bld) 9.5 % Normal 1.7-12.0 [facility] [place] Comment on above: Performed By: #### C BC ####[facility] [place] [address] [address]Dr. Keturah Fisher NEUT # 4.1 103/ul Normal 1.4-6.5 [facility] [place] Comment on above: Performed By: #### C BC ####[facility] [place] [address] [address]Dr. Keturah Fisher Neutrophils/100 WBC (Bld) 54.7 % Normal 43.0-75.0 [facility] [place] Comment on above: Performed By: #### C BC ####[facility] [place] [address] [address]Dr. Keturah Fisher Platelet mean volume (Bld) [Entitic vol] 9.6 fL Normal 9.5-13.5 [facility] [place] Comment on above: Performed By: #### C BC ####[facility] [place] [address] [address]Dr. Keturah Fisher PLT 235 103/ul Normal 150-450 [facility] [place] Comment on above: Performed By: #### C BC ####[facility] [place] [address] [address]Dr. Keturah Fisher RBC 4.30 106/ul Normal 4.20-5.40 [facility] [place] Comment on above: Performed By: #### C BC ####[facility] [place] [address] [address]Dr. Keturah Fisher WBC 7.6 103/ul Normal 4.0-11.0 [facility] [place] Comment on above: Performed By: #### C BC ####[facility] [place] [address] [place], [place] [id number]. Keturah Fisher ER URINE PROFILEon 2 Bilirubin Ql (U) Negative Normal NEGATIVE [facility] [place] Comment on above: Performed By: #### L IPA, CMP, CRP, NAT #### [facility] [place] [facility] [address] [place] [address] Dr. Keturah Fisher Clarity (U) CLEAR Normal CLEAR [facility] Comment on above: Performed By: #### L IPA, CMP, CRP, NAT #### [facility] [place] [facility] [address] [address] [address] Keturah Fisher Color (U) YELLOW Normal YELLOW [facility] Comment on above: Performed By: #### L IPA, CMP, CRP, NAT #### [facility] [place] [facility] [address] [place] [address] Dr. Keturah BAH A micrscopic examina tion will be performed if indicated. Normal [facility] [place] Comment on above: Performed By: #### L IPA, CMP, CRP, NAT #### [facility] [place] [facility] [address] [place] [address] Dr. Keturah Fisher Glucose Ql (U) Negative Normal NEGATIVE [facility] Comment on above: Performed By: #### L IPA, CMP, CRP, NAT #### [facility] [place] [facility] [address] [place] [address] Dr. Keturah Fisher Hemoglobin Ql (U) Negative Normal NEGATIVE [facility] Comment on above: Performed By: #### L IPA, CMP, CRP, NAT #### [facility] [place] [facility] [address] [place] [address] Dr. Keturah Fisher Ketones Ql (U) Negative Normal NEGATIVE [facility] Comment on above: Performed By: #### L IPA, CMP, CRP, NAT #### [facility] [place] [facility] [address] [place] [address] Dr. Keturah Fisher LEUKOCYTES Negative Normal NEGATIVE [facility] Comment on above: Performed By: #### L IPA, CMP, CRP, NAT #### [facility] [place] [facility] [address] [place] [address] Dr. Keturah Fisher Nitrite Ql (U) Negative Normal NEGATIVE [facility] Comment on above: Performed By: #### L IPA, CMP, CRP, NAT #### [facility] [place] [facility] [address] [place] [address] Dr. Keturah Fisher pH (U) 5.5 [pH] Normal 5-9 [facility] Comment on above: Performed By: #### L IPA, CMP, CRP, NAT #### [facility] [place] [facility] [address] [place] [address] Dr. Keturah Fisher SPEC GRAVITY >=1.030 Abnormal 1.005-<=1. 025 [facility] Comment on above: Performed By: #### L IPA, CMP, CRP, NAT #### [facility] [place] [facility] [address] [place] [address] Dr. Keturah Fisher UA PROTEIN Negative Normal NEGATIVE/ TRACE [facility] Comment on above: Performed By: #### L IPA, CMP, CRP, NAT #### [facility] [place] [facility] [address] [place] [address] Dr. Keturah Fisher UR MICRO IND NOT INDICATED Normal [facility] Comment on above: Performed By: #### L IPA, CMP, CRP, NAT #### [facility] [place] [facility] [address] [place] [address] Dr. Keturah Fisher Urobilinogen Qn (U) 0.2 {Marizol'U}/dL Normal 0.2 - 1. 0 [facility] Comment on above: Performed By: #### L IPA, CMP, CRP, NAT #### [facility] [place] [facility] [address] [place] [address] Dr. Keturah Fisher LIPASEon 01-15-2022 Lipase [Catalytic activity/Vol] 572.0 U/L Critically high 73.0-393.0 [facility] Comment on above: Performed By: #### C BC #### [facility] [place] [facility] [address] [place] [address] Dr. Keturah Fisher URon 01-15-2022 , QUAL Negative Normal NEGATIVE [facility] Comment on above: Performed By: #### L IPA, CMP, CRP, NAT #### [facility] [place] [facility] [address] [place] [address] Dr. Keturah Fisher PROF 14(COMP METB)on 022 Albumin [Mass/Vol] 3.8 g/dL Normal 3.4-5.0 [facility] Comment on above: Performed By: #### C BC #### [facility] [place] [facility] [address] [place] [address] Dr. Keturah Fisher Albumin/Globulin [Mass ratio] 1.1 {ratio} Normal [facility] Comment on above: Performed By: #### C BC #### [facility] [place] [facility] [address] [place] [address] Dr. Keturah Fisher ALP [Catalytic activity/Vol] 151 U/L Critically high 46-116 [facility] Comment on above: Performed By: #### C BC #### [facility] [place] [facility] [address] [place] [address] Dr. Keturah Fisher ALT [Catalytic activity/Vol] 14 U/L Normal 14-59 [facility] Comment on above: Performed By: #### C BC #### [facility] [place] [facility] [address] [place] [address] Dr. Keturah Fisher Anion gap [Moles/Vol] 5.5 mmol/L Normal [facility] Comment on above: Performed By: #### C BC #### [facility] [place] [facility] [address] [place] [address] Dr. Keturah Fisher AST [Catalytic activity/Vol] 16 U/L Normal 15-37 [facility] Comment on above: Performed By: #### C BC #### [facility] [place] [facility] [address] [place] [address] Dr. Keturah Fisher Bilirubin [Mass/Vol] 0.1 mg/dL Critically low 0.2-1.0 [facility] Comment on above: Performed By: #### C BC #### [facility] [place] [facility] [address] [place] [address] Dr. Keturah Fisher Calcium [Mass/Vol] 9.5 mg/dL Normal 8.5-10.1 [facility] Comment on above: Performed By: #### C BC #### [facility] [place] [facility] [address] [place] [address] Dr. Keturah Fisher Chloride [Moles/Vol] 105 mmol/L Normal 98-107 [facility] Comment on above: Performed By: #### C BC #### [facility] [place] [facility] [address] [place] [address] Dr. Keturah Fisher CO2 [Moles/Vol] 30.0 mmol/L Normal 21.0-32.0 [facility] Comment on above: Performed By: #### C BC #### [facility] [place] [facility] [address] [place] [address] Dr. Keturah Fisher Creatinine [Mass/Vol] 0.90 mg/dL Normal 0.55-1.02 [facility] Comment on above: Performed By: #### C BC #### [facility] [place] [facility] [address] [place] [address] Dr. Keturah Fisher EGFR-AF CITIZ[place] >60 Normal >=60 [facility] [place] Comment on above: Performed By: #### C BC #### [facility] [place] [facility] [address] [place] [address] Dr. Keturah Fisher EGFR-NON AF CITIZEN OF [place] >60 Normal >=60 [facility] Comment on above: Performed By: #### C BC #### [facility] [place] [facility] [address] [place] [address] Dr. Keturah Fisher Globulin (S) [Mass/Vol] 3.4 g/dL Normal [facility] Comment on above: Performed By: #### C BC #### [facility] [place] [facility] [address] [place] [address] Dr. Keturah Fisher Glucose [Mass/Vol] 82 mg/dL Normal 74-106 [facility] Comment on above: Performed By: #### C BC #### [facility] [place] [facility] [address] [place] [address] Dr. Keturah Fisher Potassium [Moles/Vol] 3.5 mmol/L Normal 3.5-5.1 [facility] [place] Comment on above: Performed By: #### C BC #### [facility] [place] [facility] [address] [place] [address] Dr. Keturah Fisher Protein [Mass/Vol] 7.2 g/dL Normal 6.4-8.2 [facility] Comment on above: Performed By: #### C BC #### [facility] [place] [facility] [address] [place] [address] Dr. Keturah Fisher Sodium [Moles/Vol] 137 mmol/L Normal 136-145 [facility] Comment on above: Performed By: #### C BC #### [facility] [place] [facility] [address] [place] [address] Dr. Keturah Fisher Urea nitrogen [Mass/Vol] 12.0 mg/dL Normal 7.0-18.0 [facility] Comment on above: Performed By: #### C BC #### [facility] [place] [facility] [address] [place] [address] Dr. Keturah Fisher Urea nitrogen/Creatinine [Mass ratio] 13.3 mg/mg Normal [facility] Comment on above: Performed By: #### C BC #### [facility] [place] [facility] [address] [place] [address] Dr. Keturah Fisher AMYLASEon 12-13-2021 Amylase [Catalytic activity/Vol] 268 U/L Critically high 25-115 [facility] Comment on above: Performed By: #### L IPA, CMP, CRP, NAT #### [facility] [place] [facility] [address] [place] [address] Dr. Keturah Fisher CBC AUTO DIFFon 12-13-2021 BASO # 0.1 103/ul Normal 0.0-0.1 [facility] Comment on above: Performed By: #### L IPA, CMP, CRP, NAT #### [facility] [place] [facility] [address] [place] [address] Dr. Keturah Fisher Basophils/100 WBC (Bld) 0.6 % Normal 0.2-2.0 [facility] Comment on above: Performed By: #### L IPA, CMP, CRP, NAT #### [facility] [place] [facility] [address] [place] [address] Dr. Keturah Fisher EO # 0.1 103/ul Normal 0.0-0.7 [facility] Comment on above: Performed By: #### L IPA, CMP, CRP, NAT #### [facility] [place] [facility] [address] [place] [address] Dr. Keturah Fisher Eosinophils/100 WBC (Bld) 1.2 % Normal 0.9-7.0 [facility] Comment on above: Performed By: #### L IPA, CMP, CRP, NAT #### [facility] [place] [facility] [address] [place] [address] Dr. Keturah Fisher Erythrocyte distribution width (RBC) [Ratio] 13.2 % Normal 11.0-15.0 [facility] Comment on above: Performed By: #### L IPA, CMP, CRP, NAT #### [facility] [place] [facility] [address] [place] [address] Dr. Keturah Fisher Hematocrit (Bld) [Volume fraction] 44.7 % Normal 36.0-48.0 [facility] Comment on above: Performed By: #### L IPA, CMP, CRP, NAT #### [facility] [place] [facility] [address] [place] [address] Dr. Keturah Fisher Hemoglobin (Bld) [Mass/Vol] 14.7 g/dL Normal 12.0-16.0 [facility] Comment on above: Performed By: #### L IPA, CMP, CRP, NAT #### [facility] [place] [facility] [address] [place] [address] Dr. Keturah Fisher IG # 0.03 10e3/ul Normal 0.00-0.03 [facility] Comment on above: Performed By: #### L IPA, CMP, CRP, NAT #### [facility] [place] [facility] [address] [place] [address] Dr. Keturah Fisher IG % 0.3 % Normal 0.0-0.5 [facility] [place] Comment on above: Performed By: #### L IPA, CMP, CRP, NAT #### [facility] [place] [facility] [address] [place] [address] Dr. Keturah Fisher LYMPH # 3.6 103/ul Normal 1.2-3.8 [facility] [place] Comment on above: Performed By: #### L IPA, CMP, CRP, NAT #### [facility] [place] [facility] [address] [place] [address] Dr. Keturah Fisher Lymphocytes/100 WBC (Bld) 32.7 % Normal 20.5-60.0 [facility] Comment on above: Performed By: #### L IPA, CMP, CRP, NAT #### [facility] [place] [facility] [address] [place] [address] Dr. Keturah Fisher MANUAL DIFF REQ NO Normal [facility] Comment on above: Performed By: #### L IPA, CMP, CRP, NAT #### [facility] [place] [facility] [address] [place] [address] Dr. Keturah Fisher MCH (RBC) [Entitic mass] 32.2 pg Normal 26.7-34.0 [facility] Comment on above: Performed By: #### L IPA, CMP, CRP, NAT #### [facility] [place] [facility] [address] [place] [address] Dr. Keturah Fisher MCHC (RBC) [Mass/Vol] 32.9 g/dL Normal 29.9-35.2 [facility] Comment on above: Performed By: #### L IPA, CMP, CRP, NAT #### [facility] [place] [facility] [address] [place] [address] Dr. Keturah Fisher MCV (RBC) [Entitic vol] 98.0 fL Normal 81.0-99.0 [facility] Comment on above: Performed By: #### L IPA, CMP, CRP, NAT #### [facility] [place] [facility] [address] [place] [address] Dr. Keturah Fisher MONO # 1.1 103/ul Critically high 0.3-0.8 [facility] Comment on above: Performed By: #### L IPA, CMP, CRP, NAT #### [facility] [place] [facility] [address] [place] [address] Dr. Keturah Fisher Monocytes/100 WBC (Bld) 9.7 % Normal 1.7-12.0 [facility] Comment on above: Performed By: #### L IPA, CMP, CRP, NAT #### [facility] [place] [facility] [address] [place] [address] Dr. Keturah Fisher NEUT # 6.1 103/ul Normal 1.4-6.5 [facility] Comment on above: Performed By: #### L IPA, CMP, CRP, NAT #### [facility] [place] [facility] [address] [place] [address] Dr. Keturah Fisher Neutrophils/100 WBC (Bld) 55.5 % Normal 43.0-75.0 [facility] Comment on above: Performed By: #### L IPA, CMP, CRP, NAT #### [facility] [place] [facility] [address] [place] [address] Dr. Keturah Fisher Platelet mean volume (Bld) [Entitic vol] 9.7 fL Normal 9.5-13.5 [facility] Comment on above: Performed By: #### L IPA, CMP, CRP, NAT #### [facility] [place] [facility] [address] [address] [address] Keturah Fisher PLT 274 103/ul Normal 150-450 [facility] [place] Comment on above: Performed By: #### L IPA, CMP, CRP, NAT #### [facility] [place] [facility] [address] [place] [address] Dr. Keturah Fisher RBC 4.56 106/ul Normal 4.20-5.40 [facility] [place] Comment on above: Performed By: #### L IPA, CMP, CRP, NAT #### [facility] [place] [facility] [address] [place] [address] Dr. Keturah Fisher WBC 10.9 103/ul Normal 4.0-11.0 [facility] [place] Comment on above: Performed By: #### L IPA, CMP, CRP, NAT #### [facility] [place] [facility] [address] [place] [address] Dr. Keturah Fisher CRPon 12-13-2021 CRP [Mass/Vol] mg/L Normal <=1.0 [facility] Comment on above: Performed By: #### L IPA, CMP, CRP, NAT #### [facility] [place] [facility] [address] [place] [address] ABD/PELV W CONon [...] by: AGUSTIN HIGHTOWER Date: 2021-12-13 20:50 Normal [facility] LIPASEon 12-13-2021 Lipase [Catalytic activity/Vol] 1496.0 U/L Critically high 73.0-393.0 [facility] Comment on above: Performed By: #### L IPA, CMP, CRP, NAT #### [facility] [place] [facility] [address], [place] [address] Dr. Keturah Fisher PROF 14(COMP METB)on 022 Albumin [Mass/Vol] 4.0 g/dL Normal 3.4-5.0 [facility] Comment on above: Performed By: #### L IPA, CMP, CRP, NAT #### [facility] [place] [facility] [address], [place] [address] Dr. Keturah Fisher Albumin/Globulin [Mass ratio] 1.0 {ratio} Normal [facility] Comment on above: Performed By: #### L IPA, CMP, CRP, NAT #### [facility] [place] [facility] [address] [place] [address] Dr. Keturah Fisher ALP [Catalytic activity/Vol] 166 U/L Critically high 46-116 [facility] Comment on above: Performed By: #### L IPA, CMP, CRP, NAT #### [facility] [place] [facility] [address] [place] [address] Dr. Keturah Fisher ALT [Catalytic activity/Vol] 19 U/L Normal 14-59 [facility] Comment on above: Performed By: #### L IPA, CMP, CRP, NAT #### [facility] [place] [facility] [address] [place] [address] Dr. Keturah Fisher Anion gap [Moles/Vol] 9.5 mmol/L Normal [facility] Comment on above: Performed By: #### L IPA, CMP, CRP, NAT #### [facility] [place] [facility] [address] [place] [address] Dr. Keturah Fisher AST [Catalytic activity/Vol] 16 U/L Normal 15-37 [facility] Comment on above: Performed By: #### L IPA, CMP, CRP, NAT #### [facility] [place] [facility] [address] [place] [address] Dr. Keturah Fisher Bilirubin [Mass/Vol] 0.1 mg/dL Critically low 0.2-1.0 [facility] Comment on above: Performed By: #### L IPA, CMP, CRP, NAT #### [facility] [place] [facility] [address] [place] [address] Dr. Keturah Fisher Calcium [Mass/Vol] 9.6 mg/dL Normal 8.5-10.1 [facility] Comment on above: Performed By: #### L IPA, CMP, CRP, NAT #### [facility] [place] [facility] [address] [place] [address] Dr. Keturah Fisher Chloride [Moles/Vol] 104 mmol/L Normal 98-107 [facility] Comment on above: Performed By: #### L IPA, CMP, CRP, NAT #### [facility] [place] [facility] [address] [address] [address] Keturah Fisher CO2 [Moles/Vol] 29.7 mmol/L Normal 21.0-32.0 [facility] Comment on above: Performed By: #### L IPA, CMP, CRP, NAT #### [facility] [place] [facility] [address] [address] [address] Keturah Fisher Creatinine [Mass/Vol] 0.85 mg/dL Normal 0.55-1.02 [facility] Comment on above: Performed By: #### L IPA, CMP, CRP, NAT #### [facility] [place] [facility] [address] [address] [address] Keturah Fisher EGFR-AF CITIZEN [place] >60 Normal >=60 [facility] Comment on above: Performed By: #### L IPA, CMP, CRP, NAT #### [facility] [place] [facility] [address] [place] [address] Dr. Keturah Fisher EGFR-NON AF CITIZEN [place] >60 Normal >=60 [facility] Comment on above: Performed By: #### L IPA, CMP, CRP, NAT #### [facility] [place] [facility] [address] [address] [address] Keturah Fisher Globulin (S) [Mass/Vol] 3.9 g/dL Normal [facility] Comment on above: Performed By: #### L IPA, CMP, CRP, NAT #### [facility] [place] [facility] [address] [address] [address] Keturah Fisher Glucose [Mass/Vol] 70 mg/dL Critically low 74-106 [facility] Comment on above: Performed By: #### L IPA, CMP, CRP, NAT #### [facility] [place] [facility] [address] [address] [address] Keturah Fisher Potassium [Moles/Vol] 3.2 mmol/L Critically low 3.5-5.1 [facility] Comment on above: Performed By: #### L IPA, CMP, CRP, NAT #### [facility] [place] [facility] [address] [address] [address] Keturah Fisher Protein [Mass/Vol] 7.9 g/dL Normal 6.4-8.2 [facility] Comment on above: Performed By: #### L IPA, CMP, CRP, NAT #### [facility] [place] [facility] [address] [place] [address] Dr. Keturah Fisher Sodium [Moles/Vol] 140 mmol/L Normal 136-145 [facility] Comment on above: Performed By: #### L IPA, CMP, CRP, NAT #### [facility] [place] [facility] [address] [place] [address] Dr. Keturah Fisher Urea nitrogen [Mass/Vol] 8.0 mg/dL Normal 7.0-18.0 [facility] Comment on above: Performed By: #### L IPA, CMP, CRP, NAT #### [facility] [place] [facility] [address] [place] [address] Dr. Keturah Fisher Urea nitrogen/Creatinine [Mass ratio] 9.4 mg/mg Normal [facility] Comment on above: Performed By: #### L IPA, CMP, CRP, NAT #### [facility] [place] [facility] [address] [place] [address] Dr. Keturah Fisher AMYLASEon 12-05-2021 Amylase [Catalytic activity/Vol] 223 U/L Critically high 25-115 [facility] Comment on above: Performed By: #### L IPA, CMP, CRP, NAT #### [facility] [place] [facility] [address] [place] [address] Dr. Keturah Fisher CBC AUTO DIFFon 12-05-2021 BASO # 0.1 103/ul Normal 0.0-0.1 [facility] Comment on above: Performed By: #### C BC #### [facility] [place] [facility] [address] [place] [address] Dr. Keturah Fisher Basophils/100 WBC (Bld) 0.7 % Normal 0.2-2.0 [facility] [place] Comment on above: Performed By: #### C BC #### [facility] [place] [facility] [address] [place] [address] Dr. Keturah Fisher EO # 0.2 103/ul Normal 0.0-0.7 [facility] Comment on above: Performed By: #### C BC #### [facility] [place] [facility] [address] [place] [address] Dr. Keturah Fisher Eosinophils/100 WBC (Bld) 1.7 % Normal 0.9-7.0 [facility] Comment on above: Performed By: #### C BC #### [facility] [place] [facility] [address] [place] [address] Dr. Keturah Fisher Erythrocyte distribution width (RBC) [Ratio] 13.0 % Normal 11.0-15.0 [facility] Comment on above: Performed By: #### C BC #### [facility] [place] [facility] [address] [place] [address] Dr. Keturah Fisher Hematocrit (Bld) [Volume fraction] 44.9 % Normal 36.0-48.0 [facility] Comment on above: Performed By: #### C BC #### [facility] [place] [facility] [address] [place] [address] Dr. Keturah Fisher Hemoglobin (Bld) [Mass/Vol] 15.1 g/dL Normal 12.0-16.0 [facility] Comment on above: Performed By: #### C BC #### [facility] [place] [facility] [address] [place] [address] Dr. Keturah Fisher IG # 0.02 10e3/ul Normal 0.00-0.03 [facility] Comment on above: Performed By: #### C BC #### [facility] [place] [facility] [address] [place] [address] Dr. Keturah Fisher IG % 0.2 % Normal 0.0-0.5 [facility] Comment on above: Performed By: #### C BC #### [facility] [place] [facility] [address] [place] [address] Dr. Keturah Fisher LYMPH # 2.8 103/ul Normal 1.2-3.8 [facility] [place] Comment on above: Performed By: #### C BC #### [facility] [place] [facility] [address] [place] [address] Dr. Keturah Fisher Lymphocytes/100 WBC (Bld) 29.8 % Normal 20.5-60.0 [facility] Comment on above: Performed By: #### C BC #### [facility] [place] [facility] [address] [place] [address] Dr. Keturah Fisher MANUAL DIFF REQ NO Normal [facility] Comment on above: Performed By: #### C BC #### [facility] [place] [facility] [address] [place] [address] Dr. Keturah Fisher MCH (RBC) [Entitic mass] 32.4 pg Normal 26.7-34.0 [facility] Comment on above: Performed By: #### C BC #### [facility] [place] [facility] [address] [place] [address] Dr. Keturah Fisher MCHC (RBC) [Mass/Vol] 33.6 g/dL Normal 29.9-35.2 [facility] Comment on above: Performed By: #### C BC #### [facility] [place] [facility] [address] [place] [address] Dr. Keturah Fisher MCV (RBC) [Entitic vol] 96.4 fL Normal 81.0-99.0 [facility] Comment on above: Performed By: #### C BC #### [facility] [place] [facility] [address] [place] [address] Dr. Keturah Fisher MONO # 0.6 103/ul Normal 0.3-0.8 [facility] Comment on above: Performed By: #### C BC #### [facility] [place] [facility] [address] [place] [address] Dr. Keturah Fisher Monocytes/100 WBC (Bld) 6.3 % Normal 1.7-12.0 [facility] Comment on above: Performed By: #### C BC #### [facility] [place] [facility] [address] [place] [address] Dr. Keturah Fisher NEUT # 5.7 103/ul Normal 1.4-6.5 [facility] [place] Comment on above: Performed By: #### C BC #### [facility] [place] [facility] [address] [place] [address] Dr. Keturah Fisher Neutrophils/100 WBC (Bld) 61.3 % Normal 43.0-75.0 [facility] Comment on above: Performed By: #### C BC #### [facility] [place] [facility] [address] [place] [address] Dr. Keturah Fisher Platelet mean volume (Bld) [Entitic vol] 10.7 fL Normal 9.5-13.5 [facility] Comment on above: Performed By: #### C BC #### [facility] [place] [facility] [address] [place] [address] Dr. Keturah Fisher PLT 217 103/ul Normal 150-450 [facility] Comment on above: Performed By: #### C BC #### [facility] [place] [facility] [address] [place] [address] Dr. Keturah Fisher RBC 4.66 106/ul Normal 4.20-5.40 [facility] Comment on above: Performed By: #### C BC #### [facility] [place] [facility] [address] [place] [address] Dr. Keturah Fisher WBC 9.2 103/ul Normal 4.0-11.0 [facility] Comment on above: Performed By: #### C BC #### [facility] [place] [facility] [address] [place] [address] Dr. Keturah Fisher LIPASEon 12-05-2021 Lipase [Catalytic activity/Vol] 725.0 U/L Critically high 73.0-393.0 [facility] Comment on above: Performed By: #### L IPA, CMP, CRP, NAT #### [facility] [place] [facility] [address] [place] [address] Dr. Keturah Fisher PROF 14(COMP METB)on 022 Albumin [Mass/Vol] 4.2 g/dL Normal 3.4-5.0 [facility] Comment on above: Performed By: #### L IPA, CMP, CRP, NAT #### [facility] [place] [facility] [address] [place] [address] Dr. Keturah Fisher Albumin/Globulin [Mass ratio] 1.2 {ratio} Normal [facility] Comment on above: Performed By: #### L IPA, CMP, CRP, NAT #### [facility] [place] [facility] [address] [place] [address] Dr. Keturah Fisher ALP [Catalytic activity/Vol] 158 U/L Critically high 46-116 [facility] Comment on above: Performed By: #### L IPA, CMP, CRP, NAT #### [facility] [place] [facility] [address] [address] [address] Keturah Fisher ALT [Catalytic activity/Vol] 20 U/L Normal 14-59 [facility] Comment on above: Performed By: #### L IPA, CMP, CRP, NAT #### [facility] [place] [facility] [address] [address] [address] Keturah Fisher Anion gap [Moles/Vol] 14.0 mmol/L Normal [facility] Comment on above: Performed By: #### L IPA, CMP, CRP, NAT #### [facility] [place] [facility] [address] [address] [address] Keturah Fisher AST [Catalytic activity/Vol] 27 U/L Normal 15-37 [facility] Comment on above: Performed By: #### L IPA, CMP, CRP, NAT #### [facility] [place] [facility] [address] [address] [address] Keturah Fisher Bilirubin [Mass/Vol] 0.3 mg/dL Normal 0.2-1.0 [facility] Comment on above: Performed By: #### L IPA, CMP, CRP, NAT #### [facility] [place] [facility] [address] [address] [address] Keturah Fisher Calcium [Mass/Vol] 10.1 mg/dL Normal 8.5-10.1 [facility] Comment on above: Performed By: #### L IPA, CMP, CRP, NAT #### [facility] [place] [facility] [address] [address] [address] Keturah Fisher Chloride [Moles/Vol] 105 mmol/L Normal 98-107 [facility] Comment on above: Performed By: #### L IPA, CMP, CRP, NAT #### [facility] [place] [facility] [address] [address] [address] Keturah Fisher CO2 [Moles/Vol] 24.9 mmol/L Normal 21.0-32.0 [facility] Comment on above: Performed By: #### L IPA, CMP, CRP, NAT #### [facility] [place] [facility] [address] [address] [address] Keturah Fisher Creatinine [Mass/Vol] 0.77 mg/dL Normal 0.55-1.02 [facility] Comment on above: Performed By: #### L IPA, CMP, CRP, NAT #### [facility] [place] [facility] [address] [place] [address] Dr. Keturah Fisher EGFR-AF CITIZ[place] >60 Normal >=60 [facility] Comment on above: Performed By: #### L IPA, CMP, CRP, NAT #### [facility] [place] [facility] [address] [place] [address] Dr. Keturah Fisher EGFR-NON AF CITIZEN [place] >60 Normal >=60 [facility] Comment on above: Performed By: #### L IPA, CMP, CRP, NAT #### [facility] [place] [facility] [address] [place] [address] Dr. Keturah Fisher Globulin (S) [Mass/Vol] 3.5 g/dL Normal [facility] Comment on above: Performed By: #### L IPA, CMP, CRP, NAT #### [facility] [place] [facility] [address] [place] [address] Dr. Keturah Fisher Glucose [Mass/Vol] 91 mg/dL Normal 74-106 [facility] Comment on above: Performed By: #### L IPA, CMP, CRP, NAT #### [facility] [place] [facility] [address] [place] [address] Dr. Keturah Fisher Potassium [Moles/Vol] 3.9 mmol/L Normal 3.5-5.1 [facility] Comment on above: Performed By: #### L IPA, CMP, CRP, NAT #### [facility] [place] [facility] [address] [place] [address] Dr. Keturah Fisher Protein [Mass/Vol] 7.7 g/dL Normal 6.4-8.2 [facility] Comment on above: Performed By: #### L IPA, CMP, CRP, NAT #### [facility] [place] [facility] [address] [place] [address] Dr. Keturah Fisher Sodium [Moles/Vol] 140 mmol/L Normal 136-145 [facility] Comment on above: Performed By: #### L IPA, CMP, CRP, NAT #### [facility] [place] [facility] [address] [place] [address] Dr. Keturah Fisher Urea nitrogen [Mass/Vol] 8.0 mg/dL Normal 7.0-18.0 [facility] Comment on above: Performed By: #### L IPA, CMP, CRP, NAT #### [facility] [place] [facility] [address] [place] [address] Dr. Keturah Fisher Urea nitrogen/Creatinine [Mass ratio] 10.4 mg/mg Normal [facility] Comment on above: Performed By: #### L IPA, CMP, CRP, NAT #### [facility] [place] [facility] [address] [place] [address] Dr. Keturah Fisher AMYLASEon 10-11-2021 Amylase [Catalytic activity/Vol] 134 U/L Critically high 25-115 [facility] Comment on above: Performed By: #### C BC #### [facility] [place] [facility] [address] [place] [address] Dr. Keturah Fisher CBC AUTO DIFFon 10-11-2021 BASO # 0.1 103/ul Normal 0.0-0.1 [facility] Comment on above: Performed By: #### L IPA, CMP, CRP, NAT #### [facility] [place] [facility] [address] [place] [address] Dr. Keturah Fisher Basophils/100 WBC (Bld) 1.0 % Normal 0.2-2.0 [facility] Comment on above: Performed By: #### L IPA, CMP, CRP, NAT #### [facility] [place] [facility] [address] [place] [address] Dr. Keturah Fisher EO # 0.2 103/ul Normal 0.0-0.7 [facility] [place] Comment on above: Performed By: #### L IPA, CMP, CRP, NAT #### [facility] [place] [facility] [address] [place] [address] Dr. Keturah Fisher Eosinophils/100 WBC (Bld) 2.0 % Normal 0.9-7.0 [facility] Comment on above: Performed By: #### L IPA, CMP, CRP, NAT #### [facility] [place] [facility] [address] [address] [address] Keturah Fisher Erythrocyte distribution width (RBC) [Ratio] 13.2 % Normal 11.0-15.0 [facility] Comment on above: Performed By: #### L IPA, CMP, CRP, NAT #### [facility] [place] [facility] [address] [place] [address] Dr. Keturah Fisher Hematocrit (Bld) [Volume fraction] 44.7 % Normal 36.0-48.0 [facility] Comment on above: Performed By: #### L IPA, CMP, CRP, NAT #### [facility] [place] [facility] [address] [place] [address] Dr. Keturah Fisher Hemoglobin (Bld) [Mass/Vol] 15.0 g/dL Normal 12.0-16.0 [facility] Comment on above: Performed By: #### L IPA, CMP, CRP, NAT #### [facility] [place] [facility] [address] [place] [address] Dr. Keturah Fisher IG # 0.02 10e3/ul Normal 0.00-0.03 [facility] Comment on above: Performed By: #### L IPA, CMP, CRP, NAT #### [facility] [place] [facility] [address] [place] [address] Dr. Keturah Fisher IG % 0.2 % Normal 0.0-0.5 [facility] Comment on above: Performed By: #### L IPA, CMP, CRP, NAT #### [facility] [place] [facility] [address] [place] [address] Dr. Keturah Fisher LYMPH # 4.1 103/ul Critically high 1.2-3.8 [facility] Comment on above: Performed By: #### L IPA, CMP, CRP, NAT #### [facility] [place] [facility] [address] [place] [address] Dr. Keturah Fisher Lymphocytes/100 WBC (Bld) 38.9 % Normal 20.5-60.0 [facility] [place] Comment on above: Performed By: #### L IPA, CMP, CRP, NAT #### [facility] [place] [facility] [address] [place] [address] Dr. Keturah Fisher MANUAL DIFF REQ NO Normal [facility] Comment on above: Performed By: #### L IPA, CMP, CRP, NAT #### [facility] [place] [facility] [address] [place] [address] Dr. Keturah Fisher MCH (RBC) [Entitic mass] 32.1 pg Normal 26.7-34.0 [facility] Comment on above: Performed By: #### L IPA, CMP, CRP, NAT #### [facility] [place] [facility] [address] [place] [address] Dr. Keturah Fisher MCHC (RBC) [Mass/Vol] 33.6 g/dL Normal 29.9-35.2 [facility] [place] Comment on above: Performed By: #### L IPA, CMP, CRP, NAT #### [facility] [place] [facility] [address] [place] [address] Dr. Keturah Fisher MCV (RBC) [Entitic vol] 95.7 fL Normal 81.0-99.0 [facility] Comment on above: Performed By: #### L IPA, CMP, CRP, NAT #### [facility] [place] [facility] [address] [place] [address] Dr. Keturah Fisher MONO # 0.9 103/ul Critically high 0.3-0.8 [facility] Comment on above: Performed By: #### L IPA, CMP, CRP, NAT #### [facility] [place] [facility] [address] [place] [address] Dr. Keturah Fisher Monocytes/100 WBC (Bld) 8.8 % Normal 1.7-12.0 [facility] Comment on above: Performed By: #### L IPA, CMP, CRP, NAT #### [facility] [place] [facility] [address] [place] [address] Dr. Keturah Fisher NEUT # 5.2 103/ul Normal 1.4-6.5 [facility] Comment on above: Performed By: #### L IPA, CMP, CRP, NAT #### [facility] [place] [facility] [address] [place] [address] Dr. Keturah Fisher Neutrophils/100 WBC (Bld) 49.1 % Normal 43.0-75.0 [facility] Comment on above: Performed By: #### L IPA, CMP, CRP, NAT #### [facility] [place] [facility] [address] [place] [address] Dr. Keturah Fisher Platelet mean volume (Bld) [Entitic vol] 9.8 fL Normal 9.5-13.5 [facility] Comment on above: Performed By: #### L IPA, CMP, CRP, NAT #### [facility] [place] [facility] [address] [place] [address] Dr. Keturah Fisher PLT 299 103/ul Normal 150-450 [facility] [place] Comment on above: Performed By: #### L IPA, CMP, CRP, NAT #### [facility] [place] [facility] [address] [place] [address] Dr. Keturah Fisher RBC 4.67 106/ul Normal 4.20-5.40 [facility] Comment on above: Performed By: #### L IPA, CMP, CRP, NAT #### [facility] [place] [facility] [address] [place] [address] Dr. Keturah Fisher WBC 10.5 103/ul Normal 4.0-11.0 [facility] Comment on above: Performed By: #### L IPA, CMP, CRP, NAT #### [facility] [place] [facility] [address] [place] [address] Dr. Keturah Fisher LIPASEon 10-11-2021 Lipase [Catalytic activity/Vol] 240.0 U/L Normal 73.0-393.0 [facility] Comment on above: Performed By: #### C BC #### [facility] [place] [facility] [address] [place] [address] Dr. Keturah Fisher PROF 14(COMP METB)on 022 Albumin [Mass/Vol] 4.3 g/dL Normal 3.4-5.0 [facility] Comment on above: Performed By: #### C BC #### [facility] [place] [facility] [address] [place] [address] Dr. Keturah Fisher Albumin/Globulin [Mass ratio] 1.3 {ratio} Normal [facility] Comment on above: Performed By: #### C BC #### [facility] [place] [facility] [address] [place] [address] Dr. Keturah Fisher ALP [Catalytic activity/Vol] 162 U/L Critically high 46-116 [facility] [place] Comment on above: Performed By: #### C BC #### [facility] [place] [facility] [address] [address] [address] Keturah Fisher ALT [Catalytic activity/Vol] 21 U/L Normal 14-59 [facility] Comment on above: Performed By: #### C BC #### [facility] [place] [facility] [address] [address] [address] Keturah Fisher Anion gap [Moles/Vol] 15.1 mmol/L Normal Th [facility] Comment on above: Performed By: #### C BC #### [facility] [place] [facility] [address] [address] [address] Keturah Fisher AST [Catalytic activity/Vol] 16 U/L Normal 15-37 [facility] Comment on above: Performed By: #### C BC #### [facility] [place] [facility] [address] [place] [address] Dr. Keturah Fisher Bilirubin [Mass/Vol] 0.2 mg/dL Normal 0.2-1.0 [facility] Comment on above: Performed By: #### C BC #### [facility] [place] [facility] [address] [place] [address] Dr. Keturah Fisher Calcium [Mass/Vol] 9.6 mg/dL Normal 8.5-10.1 [facility] Comment on above: Performed By: #### C BC #### [facility] [place] [facility] [address] [place] [address] Dr. Keturah Fisher Chloride [Moles/Vol] 104 mmol/L Normal 98-107 [facility] Comment on above: Performed By: #### C BC #### [facility] [place] [facility] [address] [place] [address] Dr. Keturah Fisher CO2 [Moles/Vol] 24.6 mmol/L Normal 21.0-32.0 [facility] Comment on above: Performed By: #### C BC #### [facility] [place] [facility] [address] [place] [address] Dr. Keturah Fisher Creatinine [Mass/Vol] 0.88 mg/dL Normal 0.55-1.02 [facility] Comment on above: Performed By: #### C BC #### [facility] [place] [facility] [address] [address] [address] Keturah Fisher EGFR-AF CITIZEN OF [place] >60 Normal >=60 [facility] Comment on above: Performed By: #### C BC #### [facility] [place] [facility] [id number] Keturah Fisher EGFR-NON AF CITIZEN OF [place] >60 Normal >=60 [facility] Comment on above: Performed By: #### C BC #### [facility] [place] [facility] [address] [address] [address] Keturah Fisher Globulin (S) [Mass/Vol] 3.3 g/dL Normal [facility] Comment on above: Performed By: #### C BC #### [facility] [place] [facility] [address] [address] [address] Keturah Fisher Glucose [Mass/Vol] 111 mg/dL Critically high 74-106 T [facility] Comment on above: Performed By: #### C BC #### [facility] [place] [facility] [address] [address] [address] Keturah Fisher Potassium [Moles/Vol] 3.7 mmol/L Normal 3.5-5.1 [facility] Comment on above: Performed By: #### C BC #### [facility] [place] [facility] [address] [place] [address] Dr. Keturah Fisher Protein [Mass/Vol] 7.6 g/dL Normal 6.4-8.2 [facility] Comment on above: Performed By: #### C BC #### [facility] [place] [facility] [address] [address] [address] Keturah Fisher Sodium [Moles/Vol] 140 mmol/L Normal 136-145 [facility] Comment on above: Performed By: #### C BC #### [facility] [place] [facility] [address] [place] [address] Dr. Keturah Fisher Urea nitrogen [Mass/Vol] 11.0 mg/dL Normal 7.0-18.0 [facility] Comment on above: Performed By: #### C BC #### [facility] [place] [facility] [address] [address] [address] Keturah Fisher Urea nitrogen/Creatinine [Mass ratio] 12.5 mg/mg Normal [facility] Comment on above: Performed By: #### C BC #### [facility] [place] [facility] [address] [place], [place] [address] Dr. Keturah Fisher PROTIMEon 10-11-2021 INR Coag (PPP) [Relative time] 0.94 {INR} Normal [facility] Comment on above: Performed By: #### P T, PTT ####[facility] [place] [id number] [address]DrGopal Fisher INR GUIDELINES SEE BELOW Normal [facility] Comment on above: Result Comment: KARLY RED INR: 2.0 - 3.0 CONDITIONS NOT LISTED BELOW 2.5 - 3.5 FOR PROSTHETIC HEART VALVE REPLACEMENT 2.5 - 3.5 RECURRENT THROMBOSIS Performed By: #### P T, PTT ####[facility] [place] [id number] [id number] Fisher PT Coag (PPP) [Time] 10.2 s Normal 9.0-11.6 [facility] Comment on above: Performed By: #### P T, PTT ####[facility] [place] [id number] [id number][address] Keturah Fisher PTTon 10-11-2021 aPTT Coag (Bld) [Time] 28.0 s Normal 22.3-36.2 Th [facility] Comment on above: Performed By: #### P T, PTT ####[facility] [place] [id number] [address]DrGopal Fisehr Amphetamine Screen Ql (U)Ord ered By: Christa Lopez on 10-09-2021 Amphetamines Ql (U) Negative Negative [facility] Barbiturates [Presence] in U rineOrdered By: Christa Lopez on 10-09-2021 Barbiturates Ql (U) Negative Negative [facility] Basophils Auto (Bld) [#/Vol] Ordered By: Christa Lopez on 10-09-2021 Basophils (Bld) [#/Vol] 0.1 10*3/uL 0.0-0.2 [facility] Basophils/100 WBC Auto (Bld) Ordered By: Christa Lopez on 10-09-2021 Basophils/100 WBC (Bld) 0.9 % . [facility] Benzodiazepines [Presence] i n UrineOrdered By: Christa Lopez on 10-09-2021 Benzodiazepines Ql (U) Negative Negative [facility] Bilirubin Auto test strip Ql (U)Ordered By: Christa Lopez on 10-09-2021 Bilirubin Ql (U) Negative Negative [facility] Blood hemoglobin measurement (mass/volume)Ordered By: Christa Lopez on 10-09-2021 Hemoglobin (Bld) [Mass/Vol] 15.7 g/dL 11.8-15.4 [facility] Blood leukocytes automated c ount (number/volume)Ordered By: Christa Lopez on 10-09-2021 WBC (Bld) [#/Vol] 10.1 10*3/uL 4.5-11.0 [facility] Body fluid albumin measureme nt (mass/volume)Ordered By: Christa Lopez on 10-09-2021 Albumin (Body fld) [Mass/Vol] 4.5 g/dL 3.2-5.5 [facility] Cannabinoids [Presence] in U rine by Screen methodOrdered By: Christa Lopez on 10-09-2021 Cannabinoids Screen Ql (U) Negative Negative [facility] Comment on above: These are unconfirme d results and should not be used for legal purposes. Drug Cut-Off Concentration: AMPH 1000 ng/mL BAILEY 200 ng/mL JAKE 200 ng/mL COCM 300 ng/mL OP 300 ng/mL PCP 25 ng/mL THC 20 ng/mL Creatinine and Glomerular fi ltration rate.predicted panel (S/P/Bld)Ordered By: Christa Lopez on 10-09-2021 Creatinine [Mass/Vol] 0.85 mg/dL 0.44-1.03 [facility] Eosinophils Auto (Bld) [#/Vo l]Ordered By: Christa Lopez on 10-09-2021 Eosinophils (Bld) [#/Vol] 0.1 10*3/uL 0.0-0.45 [facility] Eosinophils/100 WBC Auto (Bl d)Ordered By: Christa Lopez on 10-09-2021 Eosinophils/100 WBC (Bld) 1.2 % . [facility] Erythrocyte distribution wid th Auto (RBC) [Ratio]Ordered By: Christa Lopez on 10-09-2021 Erythrocyte distribution width (RBC) [Ratio] 13.5 % 11.9-15.3 [facility] Estimated glomerular filtrat ion rate (GFR) non- AmericanOrdered By: Christa Lopez on 10-09-2021 GFR/1.73 sq M.predicted among non-blacks MDRD (S/P/Bld) [Vol rate/Area] > 60 mL/Min [facility] Globulin Calc (S) [Mass/Vol] Ordered By: Christa Lopez on 10-09-2021 Globulin (S) [Mass/Vol] 2.9 g/dL [facility] Hematocrit Auto (Bld) [Volum e fraction]Ordered By: Christa Lopez on 10-09-2021 Hematocrit (Bld) [Volume fraction] 47.1 % 34.0-46.4 [facility] Ketones Auto test strip (U) [Mass/Vol]Ordered By: Christa Lopez on 10-09-2021 Ketones (U) [Mass/Vol] Negative Negative [facility] - Chemistry and C hemistry - challengeOrdered By: Christa Lopez on 10-09-2021 Lipase [Catalytic activity/Vol] 242.0 U/L 22-51 [facility] - Drug toxicology Ordered By: Christa Lopez on 10-09-2021 Opiates Ql (U) Negative Negative [facility] - Hematology and Cell countsOrdered By: Christa Lopez on 10-09-2021 Nucleated RBC/100 WBC (Bld) [Ratio] 0.1 % 0-0.5 [facility] Lymphocytes Auto (Bld) [#/Vo l]Ordered By: Christa Lopez on 10-09-2021 Lymphocytes (Bld) [#/Vol] 2.6 10*3/uL 1.00-4.8 [facility] Lymphocytes/100 WBC Auto (Bl d)Ordered By: Christa Lopez on 10-09-2021 Lymphocytes/100 WBC (Bld) 26.0 % . [facility] MCH Auto (RBC) [Entitic mass ]Ordered By: Christa Lopez on 10-09-2021 MCH (RBC) [Entitic mass] 32.4 pg 24.7-34.3 [facility] MCHC Auto (RBC) [Mass/Vol]Or dered By: Christa Lopez on 10-09-2021 MCHC (RBC) [Mass/Vol] 33.3 g/dL 32.0-35.0 [facility] MCV Auto (RBC) [Entitic vol] Ordered By: Christa Lopez on 10-09-2021 MCV (RBC) [Entitic vol] 97.3 fL 80-100 [facility] Monocytes Auto (Bld) [#/Vol] Ordered By: Christa Lopez on 10-09-2021 Monocytes (Bld) [#/Vol] 0.8 10*3/uL 0.0-0.8 [facility] Monocytes/100 WBC Auto (Bld) Ordered By: Christa Lopez on 10-09-2021 Monocytes/100 WBC (Bld) 7.6 % . [facility] Neutrophils Auto (Bld) [#/Vo l]Ordered By: Christa Lopez on 10-09-2021 Neutrophils (Bld) [#/Vol] 6.5 10*3/uL 1.8-7.7 [facility] Neutrophils/100 WBC Auto (Bl d)Ordered By: Christa Lopez on 10-09-2021 Neutrophils/100 WBC (Bld) 64.3 % . [facility] No Panel InformationOrdered By: Christa Lopez on 10-09-2021 Estimated GFR () > 60 mL/Min [facility] Comment on above: GFR estimated refere nce range: According to KDOQI guidelines, <60 ml/min/1.73m2 is sufficient to diagnose a patient with chronic kidney disease. Pharmacy Creatinine Clearance (Chem 61.23 [facility] Phencyclidine Screen Ql (U)O rdered By: Christa Lopez on 10-09-2021 Phencyclidine Ql (U) Negative Negative [facility] Platelet mean volume Auto (B ld) [Entitic vol]Ordered By: Christa Lopez on 10-09-2021 Platelet mean volume (Bld) [Entitic vol] 8.5 fL 6.3-10.7 [facility] Platelets Auto (Bld) [#/Vol] Ordered By: Christa Lopez on 10-09-2021 Platelets (Bld) [#/Vol] 284 10*3/uL 150-450 [facility] Protein Auto test strip (U) [Mass/Vol]Ordered By: Christa Lopez on 10-09-2021 Protein (U) [Mass/Vol] Negative Negative [facility] Protein [Mass/volume] in Ser um or PlasmaOrdered By: Christa Lopez on 10-09-2021 Protein [Mass/Vol] 7.4 g/dL 6.1-7.[address] [facility] RBC Auto (Bld) [#/Vol]Ordere d By: Christa Lopez on 10-09-2021 RBC (Bld) [#/Vol] 4.84 10*6/uL 3.60-5.00 [facility] Serum or plasma alanine hughes otransferase measurement without P-5'-P (enzymatic activiOrdered By: Christa Lopez on 10-09-2021 ALT No additional P-5'-P [Catalytic activity/Vol] 19 U/L 10-60 [facility] Serum or plasma albumin/glob ulin mass ratioOrdered By: Christa Lopez on 10-09-2021 Albumin/Globulin [Mass ratio] 1.6 {ratio} [facility] Serum or plasma alkaline jaqueline sphatase measurement (enzymatic activity/volume)Ordered By: Christa Lopez on 10-09-2021 ALP [Catalytic activity/Vol] 138 U/L 32-92 [facility] Serum or plasma aspartate am inotransferase measurement (enzymatic activity/volume)Ordered By: Christa Lopez on 10-09-2021 AST [Catalytic activity/Vol] 31 U/L 10-42 [facility] Serum or plasma calcium priscilla urement (mass/volume)Ordered By: Christa Lopez on 10-09-2021 Calcium [Mass/Vol] 10.3 mg/dL 8.2-10.[address] [facility] Serum or plasma chloride daron surement (moles/volume)Ordered By: Christa Lopez on 10-09-2021 Chloride [Moles/Vol] 100 mmol/L 95-114 [facility] Serum or plasma glucose priscilla urement (mass/volume)Ordered By: Christa Lopez on 10-09-2021 Glucose [Mass/Vol] 75 mg/dL 70-[address] [facility] Comment on above: ADA recommended refe rence range Random Glucose Reference Range is dependent on time and content of last meal. Glucose of more than 200 mg/dL in a nonstressed, ambulatory subject supports the diagnosis of Diabetes Mellitus. Serum or plasma potassium me asurement (moles/volume)Ordered By: Christa Lopez on 10-09-2021 Potassium [Moles/Vol] 3.9 mmol/L 3.5-5.1 [facility] Serum or plasma sodium measu rement (moles/volume)Ordered By: Christa Lopez on 10-09-2021 Sodium [Moles/Vol] 136 mmol/L 136-[address] [facility] Serum or plasma total biliru bin measurement (mass/volume)Ordered By: Christa Lopez on 10-09-2021 Bilirubin [Mass/Vol] 0.4 mg/dL 0.3-1.2 [facility] Serum or plasma total carbon dioxide measurement (moles/volume)Ordered By: Christa Lopez on 10-09-2021 CO2 [Moles/Vol] 24.1 mmol/L 22.0-30.[address] [facility] Serum or plasma urea nitroge n measurement (mass/volume)Ordered By: Christa Lopez on 10-09-2021 Urea nitrogen [Mass/Vol] 12 mg/dL 9-23 [facility] Troponin I.cardiac [Mass/vol ume] in Serum or Plasma by High sensitivity methodOrdered By: Christa Lopez on 10-09-2021 Troponin I.cardiac High sensitivity method [Mass/Vol] 3 pg/mL 0-15 [facility] Urine appearanceOrdered By: Christa Lopez on 10-09-2021 Appearance (U) Clear Clear [facility] Urine cocaine detectionOrder ed By: Christa Lopez on 10-09-2021 Cocaine Ql (U) Negative Negative [facility] Urine colorOrdered By: Christa Lopez on 10-09-2021 Color (U) Yellow Yellow [facility] Urine glucose measurement by automated test strip (mass/volume)Ordered By: Christa Lopez on 10-09-2021 Glucose Auto test strip (U) [Mass/Vol] Normal mg/dL Normal [facility] Urine hemoglobin detection b y automated test stripOrdered By: Christa Lopez on 10-09-2021 Hemoglobin Auto test strip Ql (U) Negative Negative [facility] Urine leukocyte esterase det ection by automated test stripOrdered By: Christa Lopez on 10-09-2021 Leukocyte esterase Auto test strip Ql (U) Negative Negative [facility] Urine nitrite detection by a utomated test stripOrdered By: Christa Lopez on 10-09-2021 Nitrite Auto test strip Ql (U) Negative Negative [facility] Urobilinogen Auto test strip (U) [Mass/Vol]Ordered By: Christa Lopez on 10-09-2021 Urobilinogen (U) [Mass/Vol] Normal mg/dL Normal [facility] pH Auto test strip (U)Ordere d By: Christa Lopez on 10-09-2021 pH (U) 1.025 [pH] 1.001-1.03 0 [facility] pH (U) 5.5 [pH] 5.0-9.0 [facility] Albumin [Mass/volume] in Ser um or PlasmaOrdered By: Reinaldo Amor on 10-04-2021 Albumin [Mass/Vol] 3.6 g/dL 3.2-5.[address] [facility] Basophils Auto (Bld) [#/Vol] Ordered By: Reinaldo Amor on 10-04-2021 Basophils (Bld) [#/Vol] 0.1 10*3/uL 0.0-0.2 [facility] Basophils/100 WBC Auto (Bld) Ordered By: Reinaldo Amor on 10-04-2021 Basophils/100 WBC (Bld) 0.8 % . [facility] Bilirubin Auto test strip Ql (U)Ordered By: Reinaldo Amor on 10-04-2021 Bilirubin Ql (U) Negative Negative [facility] Blood hemoglobin measurement (mass/volume)Ordered By: Reinaldo Amor on 10-04-2021 Hemoglobin (Bld) [Mass/Vol] 13.9 g/dL 11.8-15.4 [facility] Blood leukocytes automated c ount (number/volume)Ordered By: Reinaldo Amor on 10-04-2021 WBC (Bld) [#/Vol] 10.4 10*3/uL 4.5-11.0 [facility] Creatinine and Glomerular fi ltration rate.predicted panel (S/P/Bld)Ordered By: Reinaldo Amor on 10-04-2021 Creatinine [Mass/Vol] 0.73 mg/dL 0.44-1.03 [facility] Direct bilirubin measurement Ordered By: Reinaldo Amor on 10-04-2021 Bilirubin.direct [Mass/Vol] mg/dL 0.0-0.4 [facility] Eosinophils Auto (Bld) [#/Vo l]Ordered By: Reinaldo Amor on 10-04-2021 Eosinophils (Bld) [#/Vol] 0.1 10*3/uL 0.0-0.45 [facility] Eosinophils/100 WBC Auto (Bl d)Ordered By: Reinaldo Amor on 10-04-2021 Eosinophils/100 WBC (Bld) 0.5 % . [facility] Erythrocyte distribution wid th Auto (RBC) [Ratio]Ordered By: Reinaldo Amor on 10-04-2021 Erythrocyte distribution width (RBC) [Ratio] 13.7 % 11.9-15.3 [facility] Estimated glomerular filtrat ion rate (GFR) non- AmericanOrdered By: Reinaldo Amor on 10-04-2021 GFR/1.73 sq M.predicted among non-blacks MDRD (S/P/Bld) [Vol rate/Area] > 60 mL/Min [facility] Globulin Calc (S) [Mass/Vol] Ordered By: Reinaldo Amor on 10-04-2021 Globulin (S) [Mass/Vol] 2.6 g/dL [facility] Hematocrit Auto (Bld) [Volum e fraction]Ordered By: Reinaldo Amor on 10-04-2021 Hematocrit (Bld) [Volume fraction] 41.1 % 34.0-46.4 [facility] Ketones Auto test strip (U) [Mass/Vol]Ordered By: Reinaldo Amor on 10-04-2021 Ketones (U) [Mass/Vol] Negative Negative [facility] - Chemistry and C hemistry - challengeOrdered By: Reinaldo Amor on 10-04-2021 Lipase [Catalytic activity/Vol] 107.0 U/L 22-51 [facility] Laboratory - Hematology and Cell countsOrdered By: Reinaldo Amor on 10-04-2021 Nucleated RBC/100 WBC (Bld) [Ratio] 0.1 % 0-0.5 [facility] Lymphocytes Auto (Bld) [#/Vo l]Ordered By: Reinaldo Amor on 10-04-2021 Lymphocytes (Bld) [#/Vol] 2.5 10*3/uL 1.00-4.8 [facility] Lymphocytes/100 WBC Auto (Bl d)Ordered By: Reinaldo Amor on 10-04-2021 Lymphocytes/100 WBC (Bld) 24.1 % . [facility] MCH Auto (RBC) [Entitic mass ]Ordered By: Reinaldo Amor on 10-04-2021 MCH (RBC) [Entitic mass] 32.6 pg 24.7-34.3 [facility] MCHC Auto (RBC) [Mass/Vol]Or dered By: Reinaldo Amor on 10-04-2021 MCHC (RBC) [Mass/Vol] 33.8 g/dL 32.0-35.0 [facility] MCV Auto (RBC) [Entitic vol] Ordered By: Reinaldo Amor on 10-04-2021 MCV (RBC) [Entitic vol] 96.5 fL 80-100 [facility] Monocytes Auto (Bld) [#/Vol] Ordered By: Reinaldo Amor on 10-04-2021 Monocytes (Bld) [#/Vol] 0.9 10*3/uL 0.0-0.8 [facility] Monocytes/100 WBC Auto (Bld) Ordered By: Reinaldo Amor on 10-04-2021 Monocytes/100 WBC (Bld) 8.4 % . [facility] Neutrophils Auto (Bld) [#/Vo l]Ordered By: Reinaldo Amor on 10-04-2021 Neutrophils (Bld) [#/Vol] 6.9 10*3/uL 1.8-7.7 [facility] Neutrophils/100 WBC Auto (Bl d)Ordered By: Reinaldo Amor on 10-04-2021 Neutrophils/100 WBC (Bld) 66.2 % . [facility] No Panel InformationOrdered By: Reinaldo Amor on 10-04-2021 Estimated GFR () > 60 mL/Min [facility] Comment on above: GFR estimated refere nce range: According to KDOQI guidelines, <60 ml/min/1.73m2 is sufficient to diagnose a patient with chronic kidney disease. Pharmacy Creatinine Clearance (Chem 71.30 [facility] Platelet mean volume Auto (B ld) [Entitic vol]Ordered By: Reinaldo Amor on 10-04-2021 Platelet mean volume (Bld) [Entitic vol] 8.0 fL 6.3-10.7 [facility] Platelets Auto (Bld) [#/Vol] Ordered By: Reinaldo Amor on 10-04-2021 Platelets (Bld) [#/Vol] 268 10*3/uL 150-450 [facility] Protein Auto test strip (U) [Mass/Vol]Ordered By: Reinaldo Amor on 10-04-2021 Protein (U) [Mass/Vol] Negative Negative [facility] Protein [Mass/volume] in Ser um or PlasmaOrdered By: Reinaldo Amor on 10-04-2021 Protein [Mass/Vol] 6.2 g/dL 6.1-7.[address] [facility] RBC Auto (Bld) [#/Vol]Ordere d By: Reinaldo Amor on 10-04-2021 RBC (Bld) [#/Vol] 4.26 10*6/uL 3.60-5.00 [facility] Serum or plasma alanine hughes otransferase measurement without P-5'-P (enzymatic activiOrdered By: Reinaldo Amor on 10-04-2021 ALT No additional P-5'-P [Catalytic activity/Vol] 15 U/L 10-60 [facility] Serum or plasma albumin/glob ulin mass ratioOrdered By: Reinaldo Amor on 10-04-2021 Albumin/Globulin [Mass ratio] 1.4 {ratio} [facility] Serum or plasma alkaline jaqueline sphatase measurement (enzymatic activity/volume)Ordered By: Reinaldo Amor on 10-04-2021 ALP [Catalytic activity/Vol] 103 U/L 32-92 [facility] Serum or plasma amylase priscilla urement (enzymatic activity/volume)Ordered By: Reinaldo Amor on 10-04-2021 Amylase [Catalytic activity/Vol] 134 U/L 28-100 [facility] Serum or plasma aspartate am inotransferase measurement (enzymatic activity/volume)Ordered By: Reinaldo Amor on 10-04-2021 AST [Catalytic activity/Vol] 20 U/L 10-42 [facility] Serum or plasma calcium priscilla urement (mass/volume)Ordered By: Reinaldo Amor on 10-04-2021 Calcium [Mass/Vol] 9.6 mg/dL 8.2-10.[address] [facility] Serum or plasma chloride daron surement (moles/volume)Ordered By: Reinaldo Amor on 10-04-2021 Chloride [Moles/Vol] 103 mmol/L 95-114 [facility] Serum or plasma ethanol priscilla urement (mass/volume)Ordered By: Reinaldo Amor on 10-04-2021 Ethanol [Mass/Vol] mg/dL [facility] Ethanol [Mass/Vol] TNP [facility] Comment on above: Test not performed Serum or plasma glucose priscilla urement (mass/volume)Ordered By: Reinaldo Amor on 10-04-2021 Glucose [Mass/Vol] 120 mg/dL 70-[address] [facility] Comment on above: ADA recommended refe rence range Random Glucose Reference Range is dependent on time and content of last meal. Glucose of more than 200 mg/dL in a nonstressed, ambulatory subject supports the diagnosis of Diabetes Mellitus. Serum or plasma non-glucuron idated bilirubin measurement (mass/volume)Ordered By: Reinaldo Amor on 10-04-2021 Bilirubin.indirect [Mass/Vol] [facility] Comment on above: Test not performed Serum or plasma potassium me asurement (moles/volume)Ordered By: Reinaldo Amor on 10-04-2021 Potassium [Moles/Vol] 3.7 mmol/L 3.5-5.1 [facility] Serum or plasma sodium measu rement (moles/volume)Ordered By: Reinaldo Amor on 10-04-2021 Sodium [Moles/Vol] 137 mmol/L 136-[address] [facility] Serum or plasma total biliru bin measurement (mass/volume)Ordered By: Reinaldo Amor on 10-04-2021 Bilirubin [Mass/Vol] 0.5 mg/dL 0.3-1.2 [facility] Serum or plasma total carbon dioxide measurement (moles/volume)Ordered By: Reinaldo Amor on 10-04-2021 CO2 [Moles/Vol] 24.9 mmol/L 22.0-30.[address] [facility] Serum or plasma urea nitroge n measurement (mass/volume)Ordered By: Reinaldo Amor on 10-04-2021 Urea nitrogen [Mass/Vol] 7 mg/dL 11-29 [facility] Urine appearanceOrdered By: Reinaldo Amor on 10-04-2021 Appearance (U) Clear Clear [facility] Urine colorOrdered By: Ml Amor on 10-04-2021 Color (U) Yellow Yellow [facility] Urine glucose measurement by automated test strip (mass/volume)Ordered By: Reinaldo Amor on 10-04-2021 Glucose Auto test strip (U) [Mass/Vol] Normal mg/dL Normal [facility] Urine hemoglobin detection b y automated test stripOrdered By: Reinaldo Amor on 10-04-2021 Hemoglobin Auto test strip Ql (U) Negative Negative [facility] Urine leukocyte esterase det ection by automated test stripOrdered By: Reinaldo Amor on 10-04-2021 Leukocyte esterase Auto test strip Ql (U) Negative Negative [facility] Urine nitrite detection by a utomated test stripOrdered By: Reinaldo Amor on 10-04-2021 Nitrite Auto test strip Ql (U) Negative Negative [facility] Urobilinogen Auto test strip (U) [Mass/Vol]Ordered By: Reinaldo Amor on 10-04-2021 Urobilinogen (U) [Mass/Vol] Normal mg/dL Normal [facility] pH Auto test strip (U)Ordere d By: Reinaldo Amor on 10-04-2021 pH (U) 1.030 [pH] 1.001-1.03 0 [facility] pH (U) 5.5 [pH] 5.0-9.0 [facility] Basophils Auto (Bld) [#/Vol] Ordered By: Reinaldo Amor on 09-25-2021 Basophils (Bld) [#/Vol] 0.1 10*3/uL 0.0-0.2 [facility] Basophils/100 WBC Auto (Bld) Ordered By: Reinaldo Amor on 09-25-2021 Basophils/100 WBC (Bld) 1.2 % . [facility] Blood hemoglobin measurement (mass/volume)Ordered By: Reinaldo Amor on 09-25-2021 Hemoglobin (Bld) [Mass/Vol] 14.2 g/dL 11.8-15.4 [facility] Blood leukocytes automated c ount (number/volume)Ordered By: Reinaldo Amor on 09-25-2021 WBC (Bld) [#/Vol] 9.3 10*3/uL 4.5-11.[address] [facility] Body fluid albumin measureme nt (mass/volume)Ordered By: PROVIDER JONATHAN on 09-25-2021 Albumin (Body fld) [Mass/Vol] 4.3 g/dL 3.2-5.5 [facility] Creatinine and Glomerular fi ltration rate.predicted panel (S/P/Bld)Ordered By: PROVIDER JONATHAN on 09-25-2021 Creatinine [Mass/Vol] 0.82 mg/dL 0.44-1.03 [facility] Eosinophils Auto (Bld) [#/Vo l]Ordered By: Reinaldo Amor on 09-25-2021 Eosinophils (Bld) [#/Vol] 0.2 10*3/uL 0.0-0.45 [facility] Eosinophils/100 WBC Auto (Bl d)Ordered By: Reinaldo Amor on 09-25-2021 Eosinophils/100 WBC (Bld) 1.9 % . [facility] Erythrocyte distribution wid th Auto (RBC) [Ratio]Ordered By: Reinaldo Amor on 09-25-2021 Erythrocyte distribution width (RBC) [Ratio] 13.7 % 11.9-15.3 [facility] Estimated glomerular filtrat ion rate (GFR) non- AmericanOrdered By: PROVIDER TEMP on 09-25-2021 GFR/1.73 sq M.predicted among non-blacks MDRD (S/P/Bld) [Vol rate/Area] > 60 mL/Min [facility] Globulin Calc (S) [Mass/Vol] Ordered By: JOSE CASTILLO on 09-25-2021 Globulin (S) [Mass/Vol] 3.3 g/dL [facility] Hematocrit Auto (Bld) [Volum e fraction]Ordered By: Reinaldo Amor on 09-25-2021 Hematocrit (Bld) [Volume fraction] 42.1 % 34.0-46.4 [facility] Laboratory - Chemistry and C hemistry - challengeOrdered By: Reinaldo Amor on 09-25-2021 Lipase [Catalytic activity/Vol] 64.0 U/L 22-51 [facility] Laboratory - Hematology and Cell countsOrdered By: Reinaldo Amor on 09-25-2021 Nucleated RBC/100 WBC (Bld) [Ratio] 0.1 % 0-0.5 [facility] Lymphocytes Auto (Bld) [#/Vo l]Ordered By: Reinaldo Amor on 09-25-2021 Lymphocytes (Bld) [#/Vol] 2.6 10*3/uL 1.00-4.8 [facility] Lymphocytes/100 WBC Auto (Bl d)Ordered By: Reinaldo Amor on 09-25-2021 Lymphocytes/100 WBC (Bld) 28.1 % . [facility] MCH Auto (RBC) [Entitic mass ]Ordered By: Reinaldo Amor on 09-25-2021 MCH (RBC) [Entitic mass] 32.5 pg 24.7-34.3 [facility] MCHC Auto (RBC) [Mass/Vol]Or dered By: Reinaldo Amor on 09-25-2021 MCHC (RBC) [Mass/Vol] 33.7 g/dL 32.0-35.0 [facility] MCV Auto (RBC) [Entitic vol] Ordered By: Reinaldo Amor on 09-25-2021 MCV (RBC) [Entitic vol] 96.7 fL 80-100 [facility] Monocytes Auto (Bld) [#/Vol] Ordered By: Reinaldo Amor on 09-25-2021 Monocytes (Bld) [#/Vol] 0.8 10*3/uL 0.0-0.8 [facility] Monocytes/100 WBC Auto (Bld) Ordered By: Reinaldo Amor on 09-25-2021 Monocytes/100 WBC (Bld) 8.2 % . [facility] Neutrophils Auto (Bld) [#/Vo l]Ordered By: Reinaldo Amor on 09-25-2021 Neutrophils (Bld) [#/Vol] 5.6 10*3/uL 1.8-7.7 [facility] Neutrophils/100 WBC Auto (Bl d)Ordered By: Reinaldo Amor on 09-25-2021 Neutrophils/100 WBC (Bld) 60.6 % . [facility] No Panel InformationOrdered By: JOSE CASTILLO on 09-25-2021 Estimated GFR () > 60 mL/Min [facility] Comment on above: GFR estimated refere nce range: According to KDOQI guidelines, <60 ml/min/1.73m2 is sufficient to diagnose a patient with chronic kidney disease. Pharmacy Creatinine Clearance (Chem 63.47 [facility] Platelet mean volume Auto (B ld) [Entitic vol]Ordered By: Reinaldo Amor on 09-25-2021 Platelet mean volume (Bld) [Entitic vol] 8.6 fL 6.3-10.7 [facility] Platelets Auto (Bld) [#/Vol] Ordered By: Reinaldo Amor on 09-25-2021 Platelets (Bld) [#/Vol] 221 10*3/uL 150-450 [facility] Protein [Mass/volume] in Ser um or PlasmaOrdered By: PROVIDER JONATHAN on 09-25-2021 Protein [Mass/Vol] 7.6 g/dL 6.1-7.[address] [facility] RBC Auto (Bld) [#/Vol]Ordere d By: Reinaldo Amor on 09-25-2021 RBC (Bld) [#/Vol] 4.35 10*6/uL 3.60-5.00 [facility] Serum or plasma alanine hughes otransferase measurement without P-5'-P (enzymatic activiOrdered By: PROVIDER JONATHAN on 09-25-2021 ALT No additional P-5'-P [Catalytic activity/Vol] 14 U/L 10-60 [facility] Serum or plasma albumin/glob ulin mass ratioOrdered By: PROVIDER TEMP on 09-25-2021 Albumin/Globulin [Mass ratio] 1.3 {ratio} [facility] Serum or plasma alkaline jaqueline sphatase measurement (enzymatic activity/volume)Ordered By: PROVIDER TEMP on 09-25-2021 ALP [Catalytic activity/Vol] 127 U/L 32-92 [facility] Serum or plasma amylase priscilla urement (enzymatic activity/volume)Ordered By: Reinaldo Amor on 09-25-2021 Amylase [Catalytic activity/Vol] 171 U/L 28-100 [facility] Serum or plasma aspartate am inotransferase measurement (enzymatic activity/volume)Ordered By: PROVIDER TEMP on 09-25-2021 AST [Catalytic activity/Vol] 21 U/L 10-42 [facility] Serum or plasma calcium priscilla urement (mass/volume)Ordered By: PROVIDER TEMP on 09-25-2021 Calcium [Mass/Vol] 10.1 mg/dL 8.2-10.[address] [facility] Serum or plasma chloride daron surement (moles/volume)Ordered By: PROVIDER TEMP on 09-25-2021 Chloride [Moles/Vol] 103 mmol/L 95-114 [facility] Serum or plasma glucose priscilla urement (mass/volume)Ordered By: PROVIDER TEMP on 09-25-2021 Glucose [Mass/Vol] 93 mg/dL 70-[address] [facility] Comment on above: ADA recommended refe rence range Random Glucose Reference Range is dependent on time and content of last meal. Glucose of more than 200 mg/dL in a nonstressed, ambulatory subject supports the diagnosis of Diabetes Mellitus. Serum or plasma potassium me asurement (moles/volume)Ordered By: PROVIDER TEMP on 09-25-2021 Potassium [Moles/Vol] 3.9 mmol/L 3.5-5.1 [facility] Serum or plasma sodium measu rement (moles/volume)Ordered By: PROVIDER TEMP on 09-25-2021 Sodium [Moles/Vol] 137 mmol/L 136-[address] [facility] Serum or plasma total biliru bin measurement (mass/volume)Ordered By: PROVIDER TEMP on 09-25-2021 Bilirubin [Mass/Vol] 0.3 mg/dL 0.3-1.2 [facility] Serum or plasma total carbon dioxide measurement (moles/volume)Ordered By: PROVIDER TEMP on 09-25-2021 CO2 [Moles/Vol] 26.3 mmol/L 22.0-30.[address] [facility] Serum or plasma urea nitroge n measurement (mass/volume)Ordered By: PROVIDER TEMP on 09-25-2021 Urea nitrogen [Mass/Vol] 8 mg/dL 11-29 [facility] AMYLASEon 09-17-2021 Amylase [Catalytic activity/Vol] 142 U/L Critically high 25-115 [facility] [place] Comment on above: Performed By: #### A MY, CMP, LIPA ####[facility] [place] [address] [address]Dr. Keturah Fisher CBC AUTO DIFFon 09-17-2021 BASO # 0.1 103/ul Normal 0.0-0.1 [facility] Comment on above: Performed By: #### C BC ####[facility] [place] [address] [address]Dr. Keturah Fisher Basophils/100 WBC (Bld) 0.7 % Normal 0.2-2.0 [facility] [place] Comment on above: Performed By: #### C BC ####[facility] [place] [address] [place], [place] [address]Dr. Keturah Fisher EO # 0.1 103/ul Normal 0.0-0.7 [facility] [place] Comment on above: Performed By: #### C BC ####[facility] [place] [address] [place], [place] [address]Dr. Keturah Fisher Eosinophils/100 WBC (Bld) 1.3 % Normal 0.9-7.0 [facility] [place] Comment on above: Performed By: #### C BC ####[facility] [place] [address] [place], [place] [address]Dr. Keturah Fisher Erythrocyte distribution width (RBC) [Ratio] 13.2 % Normal 11.0-15.0 [facility] [place] Comment on above: Performed By: #### C BC ####[facility] [place] [address] [address]Dr. Keturah Fisher Hematocrit (Bld) [Volume fraction] 43.7 % Normal 36.0-48.0 [facility] Comment on above: Performed By: #### C BC ####[facility] [place] [address] [place], [place] [address]Dr. Keturah Fisher Hemoglobin (Bld) [Mass/Vol] 14.7 g/dL Normal 12.0-16.0 [facility] [place] Comment on above: Performed By: #### C BC ####[facility] [place] [address] [place], [place] [address]Dr. Elisaeli Fisher IG # 0.01 10e3/ul Normal 0.00-0.03 [facility] Comment on above: Performed By: #### C BC ####[facility] [place] [address] [place], [place] [address]Dr. Keturah Fisher IG % 0.1 % Normal 0.0-0.5 [facility] [place] Comment on above: Performed By: #### C BC ####[facility] [place] [address] [place], [place] [address]Dr. Elisaeli Fisher LYMPH # 2.7 103/ul Normal 1.2-3.8 [facility] [place] Comment on above: Performed By: #### C BC ####[facility] [place] [address] [place], [place] [address]Dr. Keturah Fisher Lymphocytes/100 WBC (Bld) 30.1 % Normal 20.5-60.0 [facility] [place] Comment on above: Performed By: #### C BC ####[facility] [place] [address] [place], [place] [address]Dr. Keturah Fisher MANUAL DIFF REQ NO Normal [facility] Comment on above: Performed By: #### C BC ####[facility] [place] [address] [place], [place] [address]Dr. Keturah Fisher MCH (RBC) [Entitic mass] 32.4 pg Normal 26.7-34.0 [facility] Comment on above: Performed By: #### C BC ####[facility] [place] [address] [id number]. Elisaeli Fisher MCHC (RBC) [Mass/Vol] 33.6 g/dL Normal 29.9-35.2 [facility] Comment on above: Performed By: #### C BC ####[facility] [place] [address] [id number]. Keturah Fisher MCV (RBC) [Entitic vol] 96.3 fL Normal 81.0-99.0 [facility] Comment on above: Performed By: #### C BC ####[facility] [place] [address] [id number]. Keturah Fisher MONO # 0.8 103/ul Normal 0.3-0.8 [facility] [place] Comment on above: Performed By: #### C BC ####[facility] [address] [place], [place] [address]Dr. Keturah Fisher Monocytes/100 WBC (Bld) 8.7 % Normal 1.7-12.0 [facility] Comment on above: Performed By: #### C BC ####[facility] [place] [address] [place], [place] [address]Dr. Keturah Fisher NEUT # 5.4 103/ul Normal 1.4-6.5 [facility] [place] Comment on above: Performed By: #### C BC ####[facility] [place] [address] [place], [place] [address]Dr. Keturah Fisher Neutrophils/100 WBC (Bld) 59.1 % Normal 43.0-75.0 [facility] [place] Comment on above: Performed By: #### C BC ####[facility] [place] [address] [place], [place] [address]Dr. Keturah Fisher Platelet mean volume (Bld) [Entitic vol] 9.6 fL Normal 9.5-13.5 [facility] Comment on above: Performed By: #### C BC ####[facility] [address] [place], [place] [id number]. Keturah Fisher PLT 272 103/ul Normal 150-450 [facility] [place] Comment on above: Performed By: #### C BC ####[facility] [place] [address] [place], [place] [address]UnGopal Fisher RBC 4.54 106/ul Normal 4.20-5.40 [facility] [place] Comment on above: Performed By: #### C BC ####[facility] [place] [address] [place], [place] [address]YxGopal Fisher WBC 9.1 103/ul Normal 4.0-11.0 [facility] [place] Comment on above: Performed By: #### C BC ####[facility] [place] [address] [place], [place] [address]YlDr. Keturah Fisher ETHANOL (BLD ALC)on 09-18-19 22 ALC NOTE NOTE: 80 mg/dl is th e legal limit for a blood alcohol level Normal [facility] Comment on above: Performed By: #### L IPA, CMP, CRP, NAT #### [facility] [place] [facility] [address] [place] [address] Dr. Keturah Fisher Ethanol [Mass/Vol] mg/dL Normal [facility] Comment on above: Performed By: #### L IPA, CMP, CRP, NAT #### [facility] [place] [facility] [address] [place] [address] Dr. Keturah Fisher LIPASEon 09-17-2021 Lipase [Catalytic activity/Vol] 524.0 U/L Critically high 73.0-393.0 [facility] Comment on above: Performed By: #### C BC #### [facility] [place] [facility] [address] [address] [address] Keturah Fisher PROF 14(COMP METB)on 022 Albumin [Mass/Vol] 3.9 g/dL Normal 3.4-5.0 [facility] Comment on above: Performed By: #### C BC #### [facility] [place] [facility] [address] [place] [address] Dr. Keturah Fisher Albumin/Globulin [Mass ratio] 1.1 {ratio} Normal [facility] Comment on above: Performed By: #### C BC #### [facility] [place] [facility] [address] [address] [address] Keturah Fisher ALP [Catalytic activity/Vol] 136 U/L Critically high 46-116 [facility] Comment on above: Performed By: #### C BC #### [facility] [place] [facility] [address] [address] [address] Keturah Fisher ALT [Catalytic activity/Vol] 21 U/L Normal 14-59 [facility] Comment on above: Performed By: #### C BC #### [facility] [place] [facility] [address] [address] [address] Keturah Fisher Anion gap [Moles/Vol] 12.7 mmol/L Normal Th [facility] Comment on above: Performed By: #### C BC #### [facility] [place] [facility] [address] [address] [address] Keturah Fisher AST [Catalytic activity/Vol] 16 U/L Normal 15-37 [facility] Comment on above: Performed By: #### C BC #### [facility] [place] [facility] [address] [address] [address] Keturah Fisher Bilirubin [Mass/Vol] 0.2 mg/dL Normal 0.2-1.0 [facility] Comment on above: Performed By: #### C BC #### [facility] [place] [facility] [address] [address] [address] Keturah Fisher Calcium [Mass/Vol] 9.9 mg/dL Normal 8.5-10.1 [facility] Comment on above: Performed By: #### C BC #### [facility] [place] [facility] [address] [address] [address] Keturah Fisher Chloride [Moles/Vol] 106 mmol/L Normal 98-107 [facility] Comment on above: Performed By: #### C BC #### [facility] [place] [facility] [address] [address] [address] Keturah Fisher CO2 [Moles/Vol] 25.9 mmol/L Normal 21.0-32.0 [facility] Comment on above: Performed By: #### C BC #### [facility] [place] [facility] [address] [address] [address] Keturah Fisher Creatinine [Mass/Vol] 0.96 mg/dL Normal 0.55-1.02 [facility] Comment on above: Performed By: #### C BC #### [facility] [place] [facility] [address] [address] [address] Keturah Fisher EGFR-AF CITIZEN OF [place] >60 Normal >=60 [facility] Comment on above: Performed By: #### C BC #### [facility] [place] [facility] [address] [address] [address] Keturah Fisher EGFR-NON AF CITIZEN OF [place] >60 Normal >=60 The [facility] [place] Comment on above: Performed By: #### C BC #### [facility] [place] [facility] [address] [address] [address] Keturah Fisher Globulin (S) [Mass/Vol] 3.5 g/dL Normal [facility] Comment on above: Performed By: #### C BC #### [facility] [place] [facility] [address] [address] [address] Keturah Fisher Glucose [Mass/Vol] 113 mg/dL Critically high 74-106 [facility] Comment on above: Performed By: #### C BC #### [facility] [place] [facility] [address] [address] [address] Keturah Fisher Potassium [Moles/Vol] 3.6 mmol/L Normal 3.5-5.1 [facility] Comment on above: Performed By: #### C BC #### [facility] [place] [facility] [address] [address] [address] Keturah Fisher Protein [Mass/Vol] 7.4 g/dL Normal 6.4-8.2 [facility] Comment on above: Performed By: #### C BC #### [facility] [place] [facility] [address] [address] [address] Keturah Fisher Sodium [Moles/Vol] 141 mmol/L Normal 136-145 [facility] Comment on above: Performed By: #### C BC #### [facility] [place] [facility] [address] [address] [address] Keturah Fisher Urea nitrogen [Mass/Vol] 8.0 mg/dL Normal 7.0-18.0 [facility] Comment on above: Performed By: #### C BC #### [facility] [place] [facility] [address] [address] [address] Keturah Fisher Urea nitrogen/Creatinine [Mass ratio] 8.3 mg/mg Normal [facility] Comment on above: Performed By: #### C BC #### [facility] [place] [facility] [address] [address] [address] Keturah Fisher AMYLASEon 08-26-2021 Amylase [Catalytic activity/Vol] 94 U/L Normal 25-115 The [facility] [place] Comment on above: Performed By: #### A MY, CMP, LIPA ####[facility] [place] [address] [address]Dr. Keturah Fisher CBC AUTO DIFFon 08-26-2021 BASO # 0.1 103/ul Normal 0.0-0.1 [facility] Comment on above: Performed By: #### L IPA, CMP, CRP, NAT #### [facility] [place] [facility] [address] [place] [address] Dr. Keturah Fisher Basophils/100 WBC (Bld) 0.7 % Normal 0.2-2.0 [facility] Comment on above: Performed By: #### L IPA, CMP, CRP, NAT #### [facility] [place] [facility] [address] [address] [address] Keturah Fisher EO # 0.2 103/ul Normal 0.0-0.7 [facility] Comment on above: Performed By: #### L IPA, CMP, CRP, NAT #### [facility] [place] [facility] [address] [address] [address] Keturah Fisher Eosinophils/100 WBC (Bld) 2.5 % Normal 0.9-7.0 [facility] Comment on above: Performed By: #### L IPA, CMP, CRP, NAT #### [facility] [place] [facility] [address] [address] [address] Keturah Fisher Erythrocyte distribution width (RBC) [Ratio] 13.1 % Normal 11.0-15.0 [facility] Comment on above: Performed By: #### L IPA, CMP, CRP, NAT #### [facility] [place] [facility] [address] [place] [address] Dr. Keturah Fisher Hematocrit (Bld) [Volume fraction] 42.4 % Normal 36.0-48.0 [facility] Comment on above: Performed By: #### L IPA, CMP, CRP, NAT #### [facility] [place] [facility] [address] [place] [address] Dr. Keturah Fisher Hemoglobin (Bld) [Mass/Vol] 14.1 g/dL Normal 12.0-16.0 [facility] Comment on above: Performed By: #### L IPA, CMP, CRP, NAT #### [facility] [place] [facility] [address] [place] [address] Dr. Keturah Fisher IG # 0.03 10e3/ul Normal 0.00-0.03 [facility] Comment on above: Performed By: #### L IPA, CMP, CRP, NAT #### [facility] [place] [facility] [address] [place] [address] Dr. Keturah Fisher IG % 0.3 % Normal 0.0-0.5 [facility] Comment on above: Performed By: #### L IPA, CMP, CRP, NAT #### [facility] [place] [facility] [address] [place] [address] Dr. Keturah Fisher LYMPH # 2.6 103/ul Normal 1.2-3.8 The [facility] [place] Comment on above: Performed By: #### L IPA, CMP, CRP, NAT #### [facility] [place] [facility] [address] [place] [address] Dr. Keturah Fisher Lymphocytes/100 WBC (Bld) 27.7 % Normal 20.5-60.0 [facility] Comment on above: Performed By: #### L IPA, CMP, CRP, NAT #### [facility] [place] [facility] [address] [place] [address] Dr. Keturah Fisher MANUAL DIFF REQ NO Normal [facility] Comment on above: Performed By: #### L IPA, CMP, CRP, NAT #### [facility] [place] [facility] [address] [place] [address] Dr. Keturah Fisher MCH (RBC) [Entitic mass] 32.6 pg Normal 26.7-34.0 [facility] Comment on above: Performed By: #### L IPA, CMP, CRP, NAT #### [facility] [place] [facility] [address] [place] [address] Dr. Keturah Fisher MCHC (RBC) [Mass/Vol] 33.3 g/dL Normal 29.9-35.2 The [facility] [place] Comment on above: Performed By: #### L IPA, CMP, CRP, NAT #### [facility] [place] [facility] [address] [place] [address] Dr. Keturah Fisher MCV (RBC) [Entitic vol] 97.9 fL Normal 81.0-99.0 The [facility] [place] Comment on above: Performed By: #### L IPA, CMP, CRP, NAT #### [facility] [place] [facility] [address] [place] [address] Dr. Keturah Fisher MONO # 1.2 103/ul Critically high 0.3-0.8 [facility] Comment on above: Performed By: #### L IPA, CMP, CRP, NAT #### [facility] [place] [facility] [address] [place] [address] Dr. Keturah Fisher Monocytes/100 WBC (Bld) 12.9 % Critically high 1.7-12.0 [facility] Comment on above: Performed By: #### L IPA, CMP, CRP, NAT #### [facility] [place] [facility] [address] [place] [address] Dr. Keturah Fisher NEUT # 5.3 103/ul Normal 1.4-6.5 The [facility] [place] Comment on above: Performed By: #### L IPA, CMP, CRP, NAT #### [facility] [place] [facility] [address] [place] [address] Dr. Keturah Fisher Neutrophils/100 WBC (Bld) 55.9 % Normal 43.0-75.0 The [facility] [place] Comment on above: Performed By: #### L IPA, CMP, CRP, NAT #### [facility] [place] [facility] [address] [place] [address] Dr. Keturah Fisher Platelet mean volume (Bld) [Entitic vol] 9.8 fL Normal 9.5-13.5 [facility] Comment on above: Performed By: #### L IPA, CMP, CRP, NAT #### [facility] [place] [facility] [address] [address] [address] Keturah Fisher PLT 229 103/ul Normal 150-450 The [facility] [place] Comment on above: Performed By: #### L IPA, CMP, CRP, NAT #### [facility] [place] [facility] [address] [address] [address] Keturah Fisher RBC 4.33 106/ul Normal 4.20-5.40 [facility] Comment on above: Performed By: #### L IPA, CMP, CRP, NAT #### [facility] [place] [facility] [address] [address] [address] Keturah Fisher WBC 9.5 103/ul Normal 4.0-11.0 [facility] Comment on above: Performed By: #### L IPA, CMP, CRP, NAT #### [facility] [place] [facility] [address] [address] [address] Keturah Fisher LIPASEon 08-26-2021 Lipase [Catalytic activity/Vol] 146.0 U/L Normal 73.0-393.0 [facility] Comment on above: Performed By: #### A MY, CMP, LIPA ####[facility] [place] [address] [address]DrGopal Fisher PROF 14(COMP METB)on 022 Albumin [Mass/Vol] 3.5 g/dL Normal 3.4-5.0 [facility] Comment on above: Performed By: #### A MY, CMP, LIPA ####[facility] [place] [address] [address]DrGopal Fisher Albumin/Globulin [Mass ratio] 1.1 {ratio} Normal [facility] Comment on above: Performed By: #### A MY, CMP, LIPA ####[facility] [place] [address] [id number] Fisher ALP [Catalytic activity/Vol] 139 U/L Critically high 46-116 The [facility] [place] Comment on above: Performed By: #### A MY, CMP, LIPA ####[facility] [place] [address] [id number] Fisher ALT [Catalytic activity/Vol] 21 U/L Normal 14-59 [facility] Comment on above: Performed By: #### A MY, CMP, LIPA ####[facility] [place] [address] [address]Dr. Keturah Fisher Anion gap [Moles/Vol] 11.4 mmol/L Normal Th e [facility] [place] Comment on above: Performed By: #### A MY, CMP, LIPA ####[facility] [place] [address] [address]Dr. Keturah Fisher AST [Catalytic activity/Vol] 21 U/L Normal 15-37 [facility] Comment on above: Performed By: #### A MY, CMP, LIPA ####[facility] [place] [address] [place], [place] [address]Dr. Keturah Fisher Bilirubin [Mass/Vol] 0.2 mg/dL Normal 0.2-1.0 The [facility] [place] Comment on above: Performed By: #### A MY, CMP, LIPA ####[facility] [place] [address] [place], [place] [address]Dr. Keturah Fisher Calcium [Mass/Vol] 9.2 mg/dL Normal 8.5-10.1 [facility] Comment on above: Performed By: #### A MY, CMP, LIPA ####[facility] [place] [address] [place], [place] [address]Dr. Keturah Fisher Chloride [Moles/Vol] 107 mmol/L Normal 98-107 [facility] Comment on above: Performed By: #### A MY, CMP, LIPA ####[facility] [place] [address] [place], [place] [address]Dr. Keturah Fisher CO2 [Moles/Vol] 27.9 mmol/L Normal 21.0-32.0 [facility] [place] Comment on above: Performed By: #### A MY, CMP, LIPA ####[facility] [place] [address] [place], [place] [address]Dr. Keturah Fisher Creatinine [Mass/Vol] 0.84 mg/dL Normal 0.55-1.02 [facility] Comment on above: Performed By: #### A MY, CMP, LIPA ####[facility] [place] [address] [id number]. Elisalan Fisher EGFR-AF [place]IZ[place] >60 Normal >=60 [facility] [place] Comment on above: Performed By: #### A MY, CMP, LIPA ####[facility] [place] [address] [id number][address] Keturah Fisher EGFR-NON AF CITIZ[place] >60 Normal >=60 The [facility] [place] Comment on above: Performed By: #### A MY, CMP, LIPA ####[facility] [place] [address] [address]Dr. Keturah Fisher Globulin (S) [Mass/Vol] 3.3 g/dL Normal The [facility] [place] Comment on above: Performed By: #### A MY, CMP, LIPA ####[facility] [place] [address] [address]Dr. Keturah Fisher Glucose [Mass/Vol] 106 mg/dL Normal 74-106 [facility] Comment on above: Performed By: #### A MY, CMP, LIPA ####[facility] [place] [address] [address]Dr. Keturah Fisher Potassium [Moles/Vol] 4.3 mmol/L Normal 3.5-5.1 The [facility] [place] Comment on above: Performed By: #### A MY, CMP, LIPA ####[facility] [place] [address] [address]Dr. Elisalan Fisher Protein [Mass/Vol] 6.8 g/dL Normal 6.4-8.2 [facility] Comment on above: Performed By: #### A MY, CMP, LIPA ####[facility] [place] [address] [address]Dr. Keturah Fisher Sodium [Moles/Vol] 142 mmol/L Normal 136-145 [facility] Comment on above: Performed By: #### A MY, CMP, LIPA ####[facility] [place] [address] [address]Dr. Keturah Fisher Urea nitrogen [Mass/Vol] 11.0 mg/dL Normal 7.0-18.0 The [facility] [place] Comment on above: Performed By: #### A MY, CMP, LIPA ####[facility] [place] [address] [place], [place] [address]EvGopal Fisher Urea nitrogen/Creatinine [Mass ratio] 13.1 mg/mg Normal [facility] Comment on above: Performed By: #### A MY, CMP, LIPA ####[facility] [place] [address] [place], [place] [address]Nk. Keturah Fisher XR ABD FLAT UP_PA Jorje [...] MILADIS BARRERA Date: 2021-08-26 04:59 Normal The [facility] [place] AMYLASEon 08-22-2021 Amylase [Catalytic activity/Vol] 155 U/L Critically high 25-115 The [facility] [place] Comment on above: Performed By: #### C MP, NAT, LIPA #### [facility] [place] [facility] [address] [place], [place] [address] Dr. Keturah Fisher CBC AUTO DIFFon 08-22-2021 BASO # 0.1 103/ul Normal 0.0-0.1 [facility] Comment on above: Performed By: #### L IPA, CMP, CRP, NAT #### [facility] [place] [facility] [id number] Keturah Fisher Basophils/100 WBC (Bld) 0.7 % Normal 0.2-2.0 The [facility] [place] Comment on above: Performed By: #### L IPA, CMP, CRP, NAT #### [facility] [place] [facility] [address] [place] [address] Dr. Keturah Fisher EO # 0.1 103/ul Normal 0.0-0.7 The [facility] [place] Comment on above: Performed By: #### L IPA, CMP, CRP, NAT #### [facility] [place] [facility] [address] [place] [address] Dr. Keturah Fisher Eosinophils/100 WBC (Bld) 0.7 % Critically low 0.9-7.0 The [facility] [place] Comment on above: Performed By: #### L IPA, CMP, CRP, NAT #### [facility] [place] [facility] [address] [place] [address] Dr. Keturah Fisher Erythrocyte distribution width (RBC) [Ratio] 13.2 % Normal 11.0-15.0 [facility] Comment on above: Performed By: #### L IPA, CMP, CRP, NAT #### [facility] [place] [facility] [address] [place] [address] Dr. Keturah Fisher Hematocrit (Bld) [Volume fraction] 41.1 % Normal 36.0-48.0 [facility] Comment on above: Performed By: #### L IPA, CMP, CRP, NAT #### [facility] [place] [facility] [address] [place] [address] Dr. Keturah Fisher Hemoglobin (Bld) [Mass/Vol] 13.8 g/dL Normal 12.0-16.0 [facility] Comment on above: Performed By: #### L IPA, CMP, CRP, NAT #### [facility] [place] [facility] [address] [place] [address] Dr. Keturah Fisher IG # 0.03 10e3/ul Normal 0.00-0.03 The [facility] [place] Comment on above: Performed By: #### L IPA, CMP, CRP, NAT #### [facility] [place] [facility] [address] [place] [address] Dr. Keturah Fisher IG % 0.2 % Normal 0.0-0.5 The [facility] [place] Comment on above: Performed By: #### L IPA, CMP, CRP, NAT #### [facility] [place] [facility] [address] [place] [address] Dr. Keturah Fisher LYMPH # 2.6 103/ul Normal 1.2-3.8 [facility] Comment on above: Performed By: #### L IPA, CMP, CRP, NAT #### [facility] [place] [facility] [address] [place] [address] Dr. Keturah Fisher Lymphocytes/100 WBC (Bld) 21.4 % Normal 20.5-60.0 [facility] Comment on above: Performed By: #### L IPA, CMP, CRP, NAT #### [facility] [place] [facility] [address] [place] [address] Dr. Keturah Fisher MANUAL DIFF REQ NO Normal [facility] Comment on above: Performed By: #### L IPA, CMP, CRP, NAT #### [facility] [place] [facility] [address] [place] [address] Dr. Keturah Fisher MCH (RBC) [Entitic mass] 32.2 pg Normal 26.7-34.0 [facility] Comment on above: Performed By: #### L IPA, CMP, CRP, NAT #### [facility] [place] [facility] [address] [place] [address] Dr. Keturah Fisher MCHC (RBC) [Mass/Vol] 33.6 g/dL Normal 29.9-35.2 [facility] Comment on above: Performed By: #### L IPA, CMP, CRP, NAT #### [facility] [place] [facility] [address] [place] [address] Dr. Keturah Fisher MCV (RBC) [Entitic vol] 95.8 fL Normal 81.0-99.0 [facility] Comment on above: Performed By: #### L IPA, CMP, CRP, NAT #### [facility] [place] [facility] [address] [place] [address] Dr. Keturah Fisher MONO # 0.9 103/ul Critically high 0.3-0.8 [facility] Comment on above: Performed By: #### L IPA, CMP, CRP, NAT #### [facility] [place] [facility] [address] [place] [address] Dr. Keturah Fisher Monocytes/100 WBC (Bld) 7.6 % Normal 1.7-12.0 The [facility] [place] Comment on above: Performed By: #### L IPA, CMP, CRP, NAT #### [facility] [place] [facility] [address] [address] [address] Keturah Fisher NEUT # 8.5 103/ul Critically high 1.4-6.5 [facility] Comment on above: Performed By: #### L IPA, CMP, CRP, NAT #### [facility] [place] [facility] [address] [place] [address] Dr. Keturah Fisher Neutrophils/100 WBC (Bld) 69.4 % Normal 43.0-75.0 The [facility] [place] Comment on above: Performed By: #### L IPA, CMP, CRP, NAT #### [facility] [place] [facility] [address] [place] [address] Dr. Keturah Fisher Platelet mean volume (Bld) [Entitic vol] 9.5 fL Normal 9.5-13.5 [facility] Comment on above: Performed By: #### L IPA, CMP, CRP, NAT #### [facility] [place] [facility] [address] [place] [address] Dr. Keturah Fisher PLT 261 103/ul Normal 150-450 The [facility] [place] Comment on above: Performed By: #### L IPA, CMP, CRP, NAT #### [facility] [place] [facility] [address] [place] [address] Dr. Keturah Fisher RBC 4.29 106/ul Normal 4.20-5.40 [facility] [place] Comment on above: Performed By: #### L IPA, CMP, CRP, NAT #### [facility] [place] [facility] [address] [place] [address] Dr. Keturah Fisher WBC 12.2 103/ul Critically high 4.0-11.0 [facility] [place] Comment on above: Performed By: #### L IPA, CMP, CRP, NAT #### [facility] [place] [facility] [address] [place] [address] Dr. Keturah Fisher LIPASEon 08-22-2021 Lipase [Catalytic activity/Vol] 419.0 U/L Critically high 73.0-393.0 [facility] Comment on above: Performed By: #### C NAT MEDEL, LIPA #### [facility] [place] [facility] [address] [address] [address] Keturah Fisher PROF 14(COMP METB)on 022 Albumin [Mass/Vol] 3.9 g/dL Normal 3.4-5.0 [facility] Comment on above: Performed By: #### C LIZY NAT, LIPA #### [facility] [place] [facility] [address] [address] [address] Keturah Fisher Albumin/Globulin [Mass ratio] 1.2 {ratio} Normal [facility] Comment on above: Performed By: #### C NAT MEDEL LIPA #### [facility] [place] [facility] [address] [place] [address] Dr. Keturah Fisher ALP [Catalytic activity/Vol] 137 U/L Critically high 46-116 [facility] Comment on above: Performed By: #### C NAT MEDEL LIPA #### [facility] [place] [facility] [address] [place] [address] Dr. Keturah Fisher ALT [Catalytic activity/Vol] 22 U/L Normal 14-59 [facility] Comment on above: Performed By: #### C NAT MEDEL LIPA #### [facility] [place] [facility] [address] [place] [address] Dr. Keturah Fisher Anion gap [Moles/Vol] 12.9 mmol/L Normal [facility] Comment on above: Performed By: #### C NAT MEDEL, LIPA #### [facility] [place] [facility] [address] [place] [address] Dr. Keturah Fisher AST [Catalytic activity/Vol] 20 U/L Normal 15-37 [facility] Comment on above: Performed By: #### C NAT MEDEL LIPA #### [facility] [place] [facility] [address] [place] [address] Dr. Keturah Fisher Bilirubin [Mass/Vol] 0.2 mg/dL Normal 0.2-1.0 [facility] Comment on above: Performed By: #### C NAT MEDEL, LIPA #### [facility] [place] [facility] [address] [address] [address] Keturah Fisher Calcium [Mass/Vol] 9.5 mg/dL Normal 8.5-10.1 [facility] Comment on above: Performed By: #### C NAT MEDEL, LIPA #### [facility] [place] [facility] [address] [place] [address] Dr. Keturah Fisher Chloride [Moles/Vol] 104 mmol/L Normal 98-107 [facility] Comment on above: Performed By: #### C LIZY NAT, LIPA #### [facility] [place] [facility] [address] [place] [address] Dr. Keturah Fisher CO2 [Moles/Vol] 23.7 mmol/L Normal 21.0-32.0 [facility] Comment on above: Performed By: #### C LIZY NAT, LIPA #### [facility] [place] [facility] [address] [place] [address] Dr. Keturah Fisher Creatinine [Mass/Vol] 0.85 mg/dL Normal 0.55-1.02 [facility] Comment on above: Performed By: #### C LIZY NAT, LIPA #### [facility] [address] [place] [address] Dr. Keturah Fisher EGFR-AF CITIZEN OF [place] >60 Normal >=60 [facility] Comment on above: Performed By: #### C NAT MEDEL, LIPA #### [facility] [address] [place] [address] Dr. Keturah Fisher EGFR-NON AF CITIZEN OF [place] >60 Normal >=60 [facility] Comment on above: Performed By: #### C LIZY NAT, LIPA #### [facility] [address] [place] [address] Dr. Keturah Fisher Globulin (S) [Mass/Vol] 3.3 g/dL Normal [facility] Comment on above: Performed By: #### C LIZY NAT, LIPA #### [facility] [address] [place] [address] Dr. Keturah Fisher Glucose [Mass/Vol] 130 mg/dL Critically high 74-106 [facility] Comment on above: Performed By: #### C NAT MEDEL, LIPA #### [facility] [address] [address] [address] Keturah Fisher Potassium [Moles/Vol] 3.6 mmol/L Normal 3.5-5.1 [facility] Comment on above: Performed By: #### C MP, NAT, LIPA #### [facility] [address] [address] [address] Keturah Fisher Protein [Mass/Vol] 7.2 g/dL Normal 6.4-8.2 [facility] Comment on above: Performed By: #### C MP, NAT, LIPA #### [facility] [address] [address] [address] Keturah Fisher Sodium [Moles/Vol] 137 mmol/L Normal 136-145 [facility] Comment on above: Performed By: #### C LIZY NAT, LIPA #### [facility] [address] [place] [address] Dr. Keturah Fisher Urea nitrogen [Mass/Vol] 9.0 mg/dL Normal 7.0-18.0 [facility] Comment on above: Performed By: #### C LIZY NAT, LIPA #### [facility] [address] [place] [address] Dr. Keturah Fisher Urea nitrogen/Creatinine [Mass ratio] 10.6 mg/mg Normal [facility] Comment on above: Performed By: #### C LIZY, NAT, LIPA #### [facility] [address] [place] [address] Dr. Keturah Fisher XR ABD FLAT UP_PA [...] TRI HANSON Date: 2021-08-22 14:54 Normal [facility] CBC AUTO DIFFon 08-13-2021 BASO # 0.1 103/ul Normal 0.0-0.1 [facility] Comment on above: Performed By: #### C BC ####[facility] [id number] [id number]. Keturah Fisher Basophils/100 WBC (Bld) 0.6 % Normal 0.2-2.0 [facility] Comment on above: Performed By: #### C BC ####[facility] [address] [address]Dr. Keturah Fisher EO # 0.1 103/ul Normal 0.0-0.7 [facility] Comment on above: Performed By: #### C BC ####[facility] [id number] [address]Dr. Keturah Fisher Eosinophils/100 WBC (Bld) 1.1 % Normal 0.9-7.0 [facility] Comment on above: Performed By: #### C BC ####[facility] [id number] [place], [place] [id number]. Keturah Fisher Erythrocyte distribution width (RBC) [Ratio] 12.6 % Normal 11.0-15.0 [facility] Comment on above: Performed By: #### C BC ####[facility] [id number] [place], [place] [id number]. Keturah Fisher Hematocrit (Bld) [Volume fraction] 42.3 % Normal 36.0-48.0 [facility] Comment on above: Performed By: #### C BC ####[facility] [id number] [id number]. Keturah Fisher Hemoglobin (Bld) [Mass/Vol] 14.1 g/dL Normal 12.0-16.0 [facility] Comment on above: Performed By: #### C BC ####[facility] [address] [id number]. Keturah Fisher IG # 0.03 10e3/ul Normal 0.00-0.03 [facility] Comment on above: Performed By: #### C BC ####[facility] [address] [address]Dr. Keturah Fisher IG % 0.3 % Normal 0.0-0.5 [facility] Comment on above: Performed By: #### C BC ####[facility] [address] [address]Dr. Keturah Fisher LYMPH # 2.4 103/ul Normal 1.2-3.8 [facility] Comment on above: Performed By: #### C BC ####[facility] [address] [address]Dr. Keturah Fisher Lymphocytes/100 WBC (Bld) 22.3 % Normal 20.5-60.0 [facility] Comment on above: Performed By: #### C BC ####[facility] [id number] [place], [place] [address]Dr. Keturah Fisher MANUAL DIFF REQ NO Normal [facility] Comment on above: Performed By: #### C BC ####[facility] [address] [address]Dr. Keturah Fisher MCH (RBC) [Entitic mass] 32.5 pg Normal 26.7-34.0 [facility] Comment on above: Performed By: #### C BC ####[facility] [address] [address]Dr. Keturah Fisher MCHC (RBC) [Mass/Vol] 33.3 g/dL Normal 29.9-35.2 [facility] Comment on above: Performed By: #### C BC ####[facility] [address] [address]Dr. Keturah Fisher MCV (RBC) [Entitic vol] 97.5 fL Normal 81.0-99.0 [facility] Comment on above: Performed By: #### C BC ####[facility] [address] [address]Dr. Keturah Fisher MONO # 1.0 103/ul Critically high 0.3-0.8 [facility] Comment on above: Performed By: #### C BC ####[facility] [address] [id number]. Keturah Fisher Monocytes/100 WBC (Bld) 8.7 % Normal 1.7-12.0 [facility] Comment on above: Performed By: #### C BC ####[facility] [address] [address]Dr. Keturah Fisher NEUT # 7.3 103/ul Critically high 1.4-6.5 [facility] Comment on above: Performed By: #### C BC ####[facility] [address] [address]Dr. Keturah Fisher Neutrophils/100 WBC (Bld) 67.0 % Normal 43.0-75.0 [facility] Comment on above: Performed By: #### C BC ####[facility] [id number] [address]Dr. Keturah Fisher Platelet mean volume (Bld) [Entitic vol] 9.5 fL Normal 9.5-13.5 [facility] Comment on above: Performed By: #### C BC ####[facility] [address] [address]Dr. Keturah Fisher PLT 272 103/ul Normal 150-450 [facility] Comment on above: Performed By: #### C BC ####[facility] [address] [address]Dr. Keturah Fisher RBC 4.34 106/ul Normal 4.20-5.40 [facility] Comment on above: Performed By: #### C BC ####[facility] [address] [address]Dr. Keturah Fisher WBC 10.9 103/ul Normal 4.0-11.0 [facility] Comment on above: Performed By: #### C BC ####[facility] [address] [address]Dr. Keturah Fisher CT ABD/PELV W CONon 08-14-19 [...] by: HEBERT MCPHERSON Date: 2021-08-13 17:14 Normal [facility] ER URINE PROFILEon 2 Bilirubin Ql (U) Negative Normal NEGATIVE [facility] Comment on above: Performed By: #### C BC #### [facility] [address] [place] [address] Dr. Keturah Fisher Clarity (U) CLEAR Normal CLEAR [facility] Comment on above: Performed By: #### C BC #### [facility] [address] [place] [address] Dr. Keturah Fisher Color (U) LT. YELLOW Normal YELLOW [facility] Comment on above: Performed By: #### C BC #### [facility] [address] [place] [address] Dr. Keturah BAH A micrscopic examina tion will be performed if indicated. Normal [facility] Comment on above: Performed By: #### C BC #### [facility] [address] [place] [address] Dr. Keturah Fisher Glucose Ql (U) Negative Normal NEGATIVE [facility] Comment on above: Performed By: #### C BC #### [facility] [address] [place] [address] Dr. Keturah Fisher Hemoglobin Ql (U) Negative Normal NEGATIVE [facility] Comment on above: Performed By: #### C BC #### [facility] [address] [place] [address] Dr. Keturah Fisher Ketones Ql (U) Negative Normal NEGATIVE [facility] Comment on above: Performed By: #### C BC #### [facility] [address] [place] [address] Dr. Keturah Fisher LEUKOCYTES Negative Normal NEGATIVE [facility] Comment on above: Performed By: #### C BC #### [facility] [address] [place] [address] Dr. Keturah Fisher Nitrite Ql (U) Negative Normal NEGATIVE [facility] Comment on above: Performed By: #### C BC #### [facility] [address] [place] [address] Dr. Keturah Fisher pH (U) 5.5 [pH] Normal 5-9 [facility] Comment on above: Performed By: #### C BC #### [facility] [address] [place] [address] Dr. Keturah Fisher SPEC GRAVITY 1.010 Normal 1.005-<=1. 025 [facility] Comment on above: Performed By: #### C BC #### [facility] [address] [place] [address] Dr. Keturah Fisher UA PROTEIN Negative Normal NEGATIVE/ TRACE [facility] Comment on above: Performed By: #### C BC #### [facility] [address] [place] [address] Dr. Keturah Fisher UR MICRO IND NOT INDICATED Normal [facility] Comment on above: Performed By: #### C BC #### [facility] [address] [place] [address] Dr. Keturah Fisher Urobilinogen Qn (U) 0.2 {Marizol'U}/dL Normal 0.2 - 1. 0 [facility] Comment on above: Performed By: #### C BC #### [facility] [address] [place] [address] Dr. Keturah Fisher LIPASEon 08-13-2021 Lipase [Catalytic activity/Vol] 217.0 U/L Normal 73.0-393.0 [facility] Comment on above: Performed By: #### C BC #### [facility] [address] [place] [address] Dr. Keturah Fisher PROF 14(COMP METB)on 022 Albumin [Mass/Vol] 3.9 g/dL Normal 3.4-5.0 [facility] Comment on above: Performed By: #### C BC #### [facility] [address] [place] [address] Dr. Keturah Fisher Albumin/Globulin [Mass ratio] 1.1 {ratio} Normal [facility] Comment on above: Performed By: #### C BC #### [facility] [address] [place] [address] Dr. Keturah Fisher ALP [Catalytic activity/Vol] 140 U/L Critically high 46-116 [facility] Comment on above: Performed By: #### C BC #### [facility] [address] [address] [address] Keturah Fisher ALT [Catalytic activity/Vol] 24 U/L Normal 14-59 [facility] Comment on above: Performed By: #### C BC #### [facility] [address] [address] [address] Keturah Fisher Anion gap [Moles/Vol] 11.7 mmol/L Normal [facility] Comment on above: Performed By: #### C BC #### [facility] [address] [address] [address] Keturah Fisher AST [Catalytic activity/Vol] 19 U/L Normal 15-37 [facility] Comment on above: Performed By: #### C BC #### [facility] [address] [place] [address] Dr. Keturah Fisher Bilirubin [Mass/Vol] 0.2 mg/dL Normal 0.2-1.0 [facility] Comment on above: Performed By: #### C BC #### [facility] [address] [place] [address] Dr. Keturah Fisher Calcium [Mass/Vol] 9.9 mg/dL Normal 8.5-10.1 [facility] Comment on above: Performed By: #### C BC #### [facility] [address] [place] [address] Dr. Keturah Fisher Chloride [Moles/Vol] 105 mmol/L Normal 98-107 [facility] Comment on above: Performed By: #### C BC #### [facility] [address] [address] [address] Keturah Fisher CO2 [Moles/Vol] 29.1 mmol/L Normal 21.0-32.0 [facility] Comment on above: Performed By: #### C BC #### [facility] [address] [address] [address] Keturah Fisher Creatinine [Mass/Vol] 0.81 mg/dL Normal 0.55-1.02 [facility] Comment on above: Performed By: #### C BC #### [facility] [address] [address] [address] Keturah Fisher EGFR-AF [place]IZ[place] >60 Normal >=60 [facility] Comment on above: Performed By: #### C BC #### [facility] [address] [address] [address] Keturah Fisher EGFR-NON AF CITIZ[place] >60 Normal >=60 [facility] Comment on above: Performed By: #### C BC #### [facility] [address] [address] [address] Keturah Fisher Globulin (S) [Mass/Vol] 3.4 g/dL Normal [facility] Comment on above: Performed By: #### C BC #### [facility] [address] [address] [address] Keturah Fisher Glucose [Mass/Vol] 87 mg/dL Normal 74-106 [facility] Comment on above: Performed By: #### C BC #### [facility] [address] [address] [address] Keturah Fisher Potassium [Moles/Vol] 3.8 mmol/L Normal 3.5-5.1 [facility] Comment on above: Performed By: #### C BC #### [facility] [address] [place] [address] Dr. Keturah Fisher Protein [Mass/Vol] 7.3 g/dL Normal 6.4-8.2 [facility] Comment on above: Performed By: #### C BC #### [facility] [address] [address] [address] Keturah Fisher Sodium [Moles/Vol] 142 mmol/L Normal 136-145 [facility] Comment on above: Performed By: #### C BC #### [facility] [address] [address] [address] Keturah Fisher Urea nitrogen [Mass/Vol] 11.0 mg/dL Normal 7.0-18.0 [facility] Comment on above: Performed By: #### C BC #### [facility] [address] [address] [address] Keturah Fisher Urea nitrogen/Creatinine [Mass ratio] 13.6 mg/mg Normal [facility] Comment on above: Performed By: #### C #### [facility] [address] [address] [address] Keturah Fisher Albumin [Mass/volume] in Ser um or PlasmaOrdered By: Keaton Barnard on 08-11-2021 Albumin [Mass/Vol] 3.4 g/dL 3.2-5.[address] [facility] Basophils Auto (Bld) [#/Vol] Ordered By: Keaton Barnard on 08-11-2021 Basophils (Bld) [#/Vol] 0.1 10*3/uL 0.0-0.2 [facility] Basophils/100 WBC Auto (Bld) Ordered By: Keaton Barnard on 08-11-2021 Basophils/100 WBC (Bld) 0.9 % . [facility] Bilirubin Test strip Ql (U)O rdered By: Keaton Barnard on 08-11-2021 Bilirubin Ql (U) Negative Negative [facility] Blood hemoglobin measurement (mass/volume)Ordered By: Keaton Barnard on 08-11-2021 Hemoglobin (Bld) [Mass/Vol] 14.1 g/dL 11.8-15.4 [facility] Blood leukocytes automated c ount (number/volume)Ordered By: Keaton Barnard on 08-11-2021 WBC (Bld) [#/Vol] 9.7 10*3/uL 4.5-11.[address] [facility] Color Auto (U)Ordered By: Luis Barnard on 08-11-2021 Color (U) Yellow Yellow [facility] Creatinine and Glomerular fi ltration rate.predicted panel (S/P/Bld)Ordered By: Keaton Barnard on 08-11-2021 Creatinine [Mass/Vol] 0.95 mg/dL 0.44-1.03 [facility] Direct bilirubin measurement Ordered By: Keaton Barnard on 08-11-2021 Bilirubin.direct [Mass/Vol] mg/dL 0.0-0.4 [facility] Eosinophils Auto (Bld) [#/Vo l]Ordered By: Keaton Barnard on 08-11-2021 Eosinophils (Bld) [#/Vol] 0.1 10*3/uL 0.0-0.45 [facility] Eosinophils/100 WBC Auto (Bl d)Ordered By: Keaton Barnard on 08-11-2021 Eosinophils/100 WBC (Bld) 1.3 % . [facility] Erythrocyte distribution wid th Auto (RBC) [Ratio]Ordered By: Keaton Barnard on 08-11-2021 Erythrocyte distribution width (RBC) [Ratio] 13.2 % 11.9-15.3 [facility] Estimated glomerular filtrat ion rate (GFR) non- AmericanOrdered By: Keaton Barnard on 08-11-2021 GFR/1.73 sq M.predicted among non-blacks MDRD (S/P/Bld) [Vol rate/Area] > 60 mL/Min [facility] Globulin Calc (S) [Mass/Vol] Ordered By: Keaton Barnard on 08-11-2021 Globulin (S) [Mass/Vol] 2.6 g/dL [facility] Hematocrit Auto (Bld) [Volum e fraction]Ordered By: Keaton Barnard on 08-11-2021 Hematocrit (Bld) [Volume fraction] 42.1 % 34.0-46.4 [facility] Ketones Auto test strip (U) [Mass/Vol]Ordered By: Keaton Barnard on 08-11-2021 Ketones (U) [Mass/Vol] Negative Negative [facility] - Chemistry and C hemistry - challengeOrdered By: Keaton Barnard on 08-11-2021 Lipase [Catalytic activity/Vol] 89.0 U/L 22-51 [facility] Laboratory - CoagulationOrde red By: Keaton Barnard on 08-11-2021 PT Coag (PPP) [Time] 12.5 s 9.0-12.9 [facility] - Hematology and Cell countsOrdered By: Keaton Barnard on 08-11-2021 Nucleated RBC/100 WBC (Bld) [Ratio] 0.1 % 0-0.5 [facility] Lymphocytes Auto (Bld) [#/Vo l]Ordered By: Keaton Barnard on 08-11-2021 Lymphocytes (Bld) [#/Vol] 2.5 10*3/uL 1.00-4.8 [facility] Lymphocytes/100 WBC Auto (Bl d)Ordered By: Keaton Barnard on 08-11-2021 Lymphocytes/100 WBC (Bld) 25.8 % . [facility] MCH Auto (RBC) [Entitic mass ]Ordered By: Keaton Barnard on 08-11-2021 MCH (RBC) [Entitic mass] 32.4 pg 24.7-34.3 [facility] MCHC Auto (RBC) [Mass/Vol]Or dered By: Keaton Barnard on 08-11-2021 MCHC (RBC) [Mass/Vol] 33.4 g/dL 32.0-35.[address] [facility] MCV Auto (RBC) [Entitic vol] Ordered By: Keaton Barnard on 08-11-2021 MCV (RBC) [Entitic vol] 96.8 fL 80-100 [facility] Monocytes Auto (Bld) [#/Vol] Ordered By: Keaton Barnard on 08-11-2021 Monocytes (Bld) [#/Vol] 0.8 10*3/uL 0.0-0.8 [facility] Monocytes/100 WBC Auto (Bld) Ordered By: Keaton Barnard on 08-11-2021 Monocytes/100 WBC (Bld) 8.7 % . [facility] Neutrophils Auto (Bld) [#/Vo l]Ordered By: Keaton Barnard on 08-11-2021 Neutrophils (Bld) [#/Vol] 6.1 10*3/uL 1.8-7.7 [facility] Neutrophils/100 WBC Auto (Bl d)Ordered By: Keaton Barnard on 08-11-2021 Neutrophils/100 WBC (Bld) 63.3 % . [facility] Nitrite Test strip Ql (U)Ord ered By: Keaton Barnard on 08-11-2021 Nitrite Ql (U) Negative Negative [facility] No Panel InformationOrdered By: Keaton Barnard on 08-11-2021 Estimated GFR () > 60 mL/Min [facility] Comment on above: GFR estimated refere nce range: According to KDOQI guidelines, <60 ml/min/1.73m2 is sufficient to diagnose a patient with chronic kidney disease. Pharmacy Creatinine Clearance (Chem 62.33 [facility] Platelet mean volume Auto (B ld) [Entitic vol]Ordered By: Keaton Barnard on 08-11-2021 Platelet mean volume (Bld) [Entitic vol] 8.0 fL 6.3-10.7 [facility] Platelet poor plasma interna tional normalized ratio (INR) by coagulation assay (relatOrdered By: Keaton Barnard on 08-11-2021 INR Coag (PPP) [Relative time] 1.1 {INR} [facility] Comment on above: INR Therapeutic Rang e [...] 08-11-2021 Platelets (Bld) [#/Vol] 252 10*3/uL 150-450 [facility] Protein Auto test strip (U) [Mass/Vol]Ordered By: Keaton Barnard on 08-11-2021 Protein (U) [Mass/Vol] Negative Negative [facility] Protein [Mass/volume] in Ser um or PlasmaOrdered By: Keaton Barnard on 08-11-2021 Protein [Mass/Vol] 6.0 g/dL 6.1-7.[address] [facility] RBC Auto (Bld) [#/Vol]Ordere d By: Keaton Barnard on 08-11-2021 RBC (Bld) [#/Vol] 4.35 10*6/uL 3.60-5.00 [facility] Serum or plasma alanine hughes otransferase measurement without P-5'-P (enzymatic activiOrdered By: Keaton Barnard on 08-11-2021 ALT No additional P-5'-P [Catalytic activity/Vol] 12 U/L 10-60 [facility] Serum or plasma albumin/glob ulin mass ratioOrdered By: Keaton Barnard on 08-11-2021 Albumin/Globulin [Mass ratio] 1.3 {ratio} [facility] Serum or plasma alkaline jaqueline sphatase measurement (enzymatic activity/volume)Ordered By: Keaton Barnard on 08-11-2021 ALP [Catalytic activity/Vol] 98 U/L 32-92 [facility] Serum or plasma aspartate am inotransferase measurement (enzymatic activity/volume)Ordered By: Keaton Barnard on 08-11-2021 AST [Catalytic activity/Vol] 17 U/L 10-42 [facility] Serum or plasma calcium priscilla urement (mass/volume)Ordered By: Keaton Barnard on 08-11-2021 Calcium [Mass/Vol] 9.3 mg/dL 8.2-10.[address] [facility] Serum or plasma chloride daron surement (moles/volume)Ordered By: Keaton Barnard on 08-11-2021 Chloride [Moles/Vol] 104 mmol/L 95-114 [facility] Serum or plasma glucose priscilla urement (mass/volume)Ordered By: Keaton Barnard on 08-11-2021 Glucose [Mass/Vol] 95 mg/dL 70-100 [facility] [facility] Comment on above: ADA recommended refe rence range Random Glucose Reference Range is dependent on time and content of last meal. Glucose of more than 200 mg/dL in a nonstressed, ambulatory subject supports the diagnosis of Diabetes Mellitus. Serum or plasma non-glucuron idated bilirubin measurement (mass/volume)Ordered By: Keaton Barnard on 08-11-2021 Bilirubin.indirect [Mass/Vol] TNP [facility] Comment on above: Test not performed Serum or plasma potassium me asurement (moles/volume)Ordered By: Keaton Barnard on 08-11-2021 Potassium [Moles/Vol] 3.8 mmol/L 3.5-5.1 [facility] Serum or plasma sodium measu rement (moles/volume)Ordered By: Keaton Barnard on 08-11-2021 Sodium [Moles/Vol] 138 mmol/L 136-[address] [facility] Serum or plasma total biliru bin measurement (mass/volume)Ordered By: Keaton Barnard on 08-11-2021 Bilirubin [Mass/Vol] 0.3 mg/dL 0.3-1.2 [facility] Serum or plasma total carbon dioxide measurement (moles/volume)Ordered By: Keaton Barnard on 08-11-2021 CO2 [Moles/Vol] 24.8 mmol/L 22.0-30.[address] [facility] Serum or plasma urea nitroge n measurement (mass/volume)Ordered By: Keaton Barnard on 08-11-2021 Urea nitrogen [Mass/Vol] 10 mg/dL 9-23 [facility] Specific gravity Auto test s trip (U) [Rel density]Ordered By: Keaton Barnard on 08-11-2021 Specific gravity (U) [Rel density] 1.028 1.001-1.03 0 [facility] Troponin I.cardiac [Mass/vol ume] in Serum or Plasma by High sensitivity methodOrdered By: Keaton Barnard on 08-11-2021 Troponin I.cardiac High sensitivity method [Mass/Vol] 3 pg/mL 0-15 [facility] Urine clarity by refractomet ry automatedOrdered By: Keaton Barnard on 08-11-2021 Clarity Refractometry automated (U) Clear Clear [facility] Urine glucose measurement by automated test strip (mass/volume)Ordered By: Keaton Barnard on 08-11-2021 Glucose Auto test strip (U) [Mass/Vol] Normal mg/dL Normal [facility] Urine hemoglobin detection b y automated test stripOrdered By: Keaton Barnard on 08-11-2021 Hemoglobin Auto test strip Ql (U) Negative Negative [facility] Urine leukocyte esterase det ection by automated test stripOrdered By: Keaton Barnard on 08-11-2021 Leukocyte esterase Auto test strip Ql (U) Negative Negative [facility] Urobilinogen Auto test strip (U) [Mass/Vol]Ordered By: Keaton Barnard on 08-11-2021 Urobilinogen (U) [Mass/Vol] Normal mg/dL Normal [facility] pH Auto test strip (U)Ordere d By: Keaton Barnard on 08-11-2021 pH (U) 5.0 [pH] 5.0-9.0 [facility] AMYLASEon 07-31-2021 Amylase [Catalytic activity/Vol] 158 U/L Critically high 25-115 [facility] [place] Comment on above: Performed By: #### L IPA, CMP, CRP, NAT #### [facility] [place] [facility] [address], [place] [address] Dr. Keturah Fisher CBC AUTO DIFFon 07-31-2021 BASO # 0.1 103/ul Normal 0.0-0.1 [facility] Comment on above: Performed By: #### C BC ####[facility] [place] [address] [place] [address]Dr. Keturah Fisher Basophils/100 WBC (Bld) 0.7 % Normal 0.2-2.0 [facility] [place] Comment on above: Performed By: #### C BC ####[facility] [place] [address] [place] [address]DrGopal Fisher EO # 0.1 103/ul Normal 0.0-0.7 [facility] [place] Comment on above: Performed By: #### C BC ####[facility] [place] [address] [place] [address]DrGopal Fisher Eosinophils/100 WBC (Bld) 0.9 % Normal 0.9-7.0 [facility] Comment on above: Performed By: #### C BC ####[facility] [place] [address] [place] [address]DrGopal Fisher Erythrocyte distribution width (RBC) [Ratio] 12.7 % Normal 11.0-15.0 [facility] Comment on above: Performed By: #### C BC ####[facility] [place] [address] [place] [address]Dr. Keturah Fisher Hematocrit (Bld) [Volume fraction] 43.2 % Normal 36.0-48.0 [facility] Comment on above: Performed By: #### C BC ####[facility] [place] [address] [place] [address]Dr. Keturah Fisher Hemoglobin (Bld) [Mass/Vol] 14.5 g/dL Normal 12.0-16.0 [facility] [place] Comment on above: Performed By: #### C BC ####[facility] [place] [address] [place], [place] [address]DrGopal Fisher IG # 0.04 10e3/ul Critically high 0.00-0.03 [facility] Comment on above: Performed By: #### C BC ####[facility] [place] [address] [place] [address]Dr. Keturah Fisher IG % 0.4 % Normal 0.0-0.5 [facility] Comment on above: Performed By: #### C BC ####[facility] [place] [address] [place] [address]Dr. Keturah Fisher LYMPH # 2.8 103/ul Normal 1.2-3.8 [facility] [place] Comment on above: Performed By: #### C BC ####[facility] [place] [address] [place] [address]Dr. Keturah Fisher Lymphocytes/100 WBC (Bld) 24.9 % Normal 20.5-60.0 [facility] Comment on above: Performed By: #### C BC ####[facility] [place] [address] [place] [address]Dr. Keturah Fisher MANUAL DIFF REQ NO Normal [facility] Comment on above: Performed By: #### C BC ####[facility] [place] [address] [place] [address]Dr. Keturah Fisher MCH (RBC) [Entitic mass] 32.7 pg Normal 26.7-34.0 [facility] [place] Comment on above: Performed By: #### C BC ####[facility] [place] [address] [place] [address]Dr. Keturah Fisher MCHC (RBC) [Mass/Vol] 33.6 g/dL Normal 29.9-35.2 [facility] [place] Comment on above: Performed By: #### C BC ####[facility] [place] [address] [place] [address]Dr. Keturah Fisher MCV (RBC) [Entitic vol] 97.5 fL Normal 81.0-99.0 [facility] [place] Comment on above: Performed By: #### C BC ####[facility] [place] [address]ms[address] [place] [address]Dr. Keturah Phillip MONO # 0.9 103/ul Critically high 0.3-0.8 [facility] Comment on above: Performed By: #### C BC ####[facility] [place] [address] [place] [address]Dr. Keturah Fisher Monocytes/100 WBC (Bld) 8.1 % Normal 1.7-12.0 [facility] [place] Comment on above: Performed By: #### C BC ####[facility] [place] [address] [place] [address]Dr. Keturah Fisher NEUT # 7.3 103/ul Critically high 1.4-6.5 [facility] Comment on above: Performed By: #### C BC ####[facility] [place] [address] [place] [address]Dr. Keturah Fisher Neutrophils/100 WBC (Bld) 65.0 % Normal 43.0-75.0 [facility] [place] Comment on above: Performed By: #### C BC ####[facility] [place] [address] [place] [address]Dr. Keturah Fisher Platelet mean volume (Bld) [Entitic vol] 10.0 fL Normal 9.5-13.5 [facility] [place] Comment on above: Performed By: #### C BC ####[facility] [place] [address] [place] [address]Dr. Keturah Fisher PLT 245 103/ul Normal 150-450 [facility] [place] Comment on above: Performed By: #### C BC ####[facility] [place] [address] [place] [address]Dr. Keturah Fisher RBC 4.43 106/ul Normal 4.20-5.40 [facility] [place] Comment on above: Performed By: #### C BC ####[facility] [place] [address] [place], [place] [address]Dr. Keturah Fisher WBC 11.2 103/ul Critically high 4.0-11.0 [facility] [place] Comment on above: Performed By: #### C BC ####[facility] [place] [address] [place] [address]Dr. Keturah Fisher LIPASEon 07-31-2021 Lipase [Catalytic activity/Vol] 439.0 U/L Critically high 73.0-393.0 [facility] [place] Comment on above: Performed By: #### L IPA, CMP, CRP, NAT #### [facility] [place] [facility] [address] [place] [address] Dr. Keturah Fisher PROF 14(COMP METB)on 022 Albumin [Mass/Vol] 3.6 g/dL Normal 3.4-5.0 [facility] Comment on above: Performed By: #### L IPA, CMP, CRP, NAT #### [facility] [place] [facility] [address] [place] [address] Dr. Keturah Fisher Albumin/Globulin [Mass ratio] 1.1 {ratio} Normal [facility] Comment on above: Performed By: #### L IPA, CMP, CRP, NAT #### [facility] [place] [facility] [address] [place] [address] Dr. Keturah Fisher ALP [Catalytic activity/Vol] 119 U/L Critically high 46-116 [facility] Comment on above: Performed By: #### L IPA, CMP, CRP, NAT #### [facility] [place] [facility] [address] [place] [address] Dr. Keturah Fisher ALT [Catalytic activity/Vol] 20 U/L Normal 14-59 [facility] Comment on above: Performed By: #### L IPA, CMP, CRP, NAT #### [facility] [place] [facility] [address] [place] [address] Dr. Keturah Fisher Anion gap [Moles/Vol] 13.4 mmol/L Normal [facility] Comment on above: Performed By: #### L IPA, CMP, CRP, NAT #### [facility] [place] [facility] [address] [place] [address] Dr. Keturah Fisher AST [Catalytic activity/Vol] 16 U/L Normal 15-37 [facility] Comment on above: Performed By: #### L IPA, CMP, CRP, NAT #### [facility] [place] [facility] [address] [place] [address] Dr. Keturah Fisher Bilirubin [Mass/Vol] 0.1 mg/dL Critically low 0.2-1.0 [facility] Comment on above: Performed By: #### L IPA, CMP, CRP, NAT #### [facility] [place] [facility] [address] [place] [address] [address] Keturah Fisher Calcium [Mass/Vol] 8.9 mg/dL Normal 8.5-10.1 [facility] Comment on above: Performed By: #### L IPA, CMP, CRP, NAT #### [facility] [place] [facility] [address] [place] [address] Dr. Keturah Fisher Chloride [Moles/Vol] 106 mmol/L Normal 98-107 [facility] [place] Comment on above: Performed By: #### L IPA, CMP, CRP, NAT #### [facility] [place] [facility] [address] [place] [address] Dr. Keturah Fisher CO2 [Moles/Vol] 25.4 mmol/L Normal 21.0-32.0 [facility] [place] Comment on above: Performed By: #### L IPA, CMP, CRP, NAT #### [facility] [place] [facility] [address] [place] [address] Dr. Keturah Fisher Creatinine [Mass/Vol] 0.73 mg/dL Normal 0.55-1.02 [facility] Comment on above: Performed By: #### L IPA, CMP, CRP, NAT #### [facility] [place] [facility] [address] [place] [address] Dr. Keturah Fisher EGFR-AF CITIZEN OF [place] >60 Normal >=60 [facility] [place] Comment on above: Performed By: #### L IPA, CMP, CRP, NAT #### [facility] [place] [facility] [address] [place] [address] Dr. Keturah Fisher EGFR-NON AF CITIZEN OF [place] >60 Normal >=60 [facility] [place] Comment on above: Performed By: #### L IPA, CMP, CRP, NAT #### [facility] [place] [facility] [address] [place] [address] Dr. Keturah Fisher Globulin (S) [Mass/Vol] 3.2 g/dL Normal [facility] [place] Comment on above: Performed By: #### L IPA, CMP, CRP, NAT #### [facility] [place] [facility] [address] [place] [address] Dr. Keturah Fisher Glucose [Mass/Vol] 105 mg/dL Normal 74-106 [facility] Comment on above: Performed By: #### L IPA, CMP, CRP, NAT #### [facility] [place] [facility] [address] [place] [address] Dr. Keturah Fisher Potassium [Moles/Vol] 3.8 mmol/L Normal 3.5-5.1 [facility] Comment on above: Performed By: #### L IPA, CMP, CRP, NAT #### [facility] [place] [facility] [address] [place] [address] Dr. Keturah Fisher Protein [Mass/Vol] 6.8 g/dL Normal 6.4-8.2 [facility] Comment on above: Performed By: #### L IPA, CMP, CRP, NAT #### [facility] [place] [facility] [address] [place] [address] Dr. Keturah Fisher Sodium [Moles/Vol] 141 mmol/L Normal 136-145 [facility] Comment on above: Performed By: #### L IPA, CMP, CRP, NAT #### [facility] [place] [facility] [address] [place] [address] Dr. Keturah Fisher Urea nitrogen [Mass/Vol] 12.0 mg/dL Normal 7.0-18.0 [facility] Comment on above: Performed By: #### L IPA, CMP, CRP, NAT #### [facility] [place] [facility] [address] [place] [address] Dr. Keturah Fisher Urea nitrogen/Creatinine [Mass ratio] 16.4 mg/mg Normal [facility] Comment on above: Performed By: #### L IPA, CMP, CRP, NAT #### [facility] [place] [facility] [address] [place] [address] Dr. Keturah Fisher TROPONIN, HIGH SENSITIVITYon 07-31-2021 HSTROP 4.2 pg/mL Normal 4.0-51.3 [facility] Comment on above: Result Comment: CUT- OFF POINTS HAVE BEEN ESTABLISHED BASED ON THE FOURTH UNIVERSAL DEFINITIONS OF MYOCARDIAL INFARCTION. THE UPPER REFERENCE LIMIT (URL) OF TROPONIN, DEFINED THE 99TH PERCENTILE OF cTnI DISTRIBUTION IN A REFERENCE POPULATION, HAS BEEN CONFIRMED THE DECISION THRESHOLD FOR PR DIAGNOSIS. Performed By: #### L IPA, CMP, CRP, NAT #### [facility] [place] [facility] [address] [place] [address] Dr. Keturah Fisher AMYLASEon 07-19-2021 Amylase [Catalytic activity/Vol] 198 U/L Critically high 25-115 [facility] [place] Comment on above: Performed By: #### A MY, LIPA, CMP ####[facility] [place] [address] [place] [address]Dr. Keturah Fisher CBC AUTO DIFFon 07-19-2021 BASO # 0.1 103/ul Normal 0.0-0.1 [facility] [place] Comment on above: Performed By: #### C BC ####[facility] [place] [address] [place], [place] [address]Dr. Keturah Fisher Basophils/100 WBC (Bld) 0.7 % Normal 0.2-2.0 [facility] Comment on above: Performed By: #### C BC ####[facility] [place] [address] [place], [place] [address]DrGopal Fisher EO # 0.1 103/ul Normal 0.0-0.7 [facility] [place] Comment on above: Performed By: #### C BC ####[facility] [place] [address] [place], [place] [address]Dr. Keturah Fisher Eosinophils/100 WBC (Bld) 1.0 % Normal 0.9-7.0 [facility] Comment on above: Performed By: #### C BC ####[facility] [place] [address] [place], [place] [address]DrGopal Fisher Erythrocyte distribution width (RBC) [Ratio] 12.5 % Normal 11.0-15.0 [facility] [place] Comment on above: Performed By: #### C BC ####[facility] [place] [address] [place], [place] [address]DrGopal Fisher Hematocrit (Bld) [Volume fraction] 42.4 % Normal 36.0-48.0 [facility] [place] Comment on above: Performed By: #### C BC ####[facility] [place] [address] [place], [place] [address]DrGopal Fisher Hemoglobin (Bld) [Mass/Vol] 14.2 g/dL Normal 12.0-16.0 [facility] [place] Comment on above: Performed By: #### C BC ####[facility] [place] [address] [place] [address]Dr. Keturah Fisher IG # 0.03 10e3/ul Normal 0.00-0.03 [facility] Comment on above: Performed By: #### C BC ####[facility] [place] [address] [place] [address]Dr. Keturah Fisher IG % 0.3 % Normal 0.0-0.5 [facility] [place] Comment on above: Performed By: #### C BC ####[facility] [place] [address] [place] [address]Dr. Keturah Fisher LYMPH # 3.0 103/ul Normal 1.2-3.8 [facility] [place] Comment on above: Performed By: #### C BC ####[facility] [place] [address] [place] [address]Dr. Keturah Fisher Lymphocytes/100 WBC (Bld) 29.5 % Normal 20.5-60.0 [facility] [place] Comment on above: Performed By: #### C BC ####[facility] [place] [address] [place] [address]Dr. Keturah Fisher MANUAL DIFF REQ NO Normal [facility] Comment on above: Performed By: #### C BC ####[facility] [place] [address] [place] [address]Dr. Keturah Fisher MCH (RBC) [Entitic mass] 32.8 pg Normal 26.7-34.0 [facility] [place] Comment on above: Performed By: #### C BC ####[facility] [place] [address] [place], [place] [address]Dr. Keturah Fisher MCHC (RBC) [Mass/Vol] 33.5 g/dL Normal 29.9-35.2 [facility] [place] Comment on above: Performed By: #### C BC ####[facility] [place] [address] [place] [address]Dr. Kteurah Fisher MCV (RBC) [Entitic vol] 97.9 fL Normal 81.0-99.0 [facility] [place] Comment on above: Performed By: #### C BC ####[facility] [place] [address] [place] [address]Dr. Keturah Fisher MONO # 1.0 103/ul Critically high 0.3-0.8 [facility] Comment on above: Performed By: #### C BC ####[facility] [place] [address] [place] [address]Dr. Keturah Fisher Monocytes/100 WBC (Bld) 9.3 % Normal 1.7-12.0 [facility] [place] Comment on above: Performed By: #### C BC ####[facility] [place] [address] [place] [address]Dr. Keturah Fisher NEUT # 6.1 103/ul Normal 1.4-6.5 [facility] [place] Comment on above: Performed By: #### C BC ####[facility] [place] [address] [place], [place] [address]Dr. Keturah Fisher Neutrophils/100 WBC (Bld) 59.2 % Normal 43.0-75.0 [facility] [place] Comment on above: Performed By: #### C BC ####[facility] [place] [address] [place] [address]Dr. Keturah Fisher Platelet mean volume (Bld) [Entitic vol] 9.8 fL Normal 9.5-13.5 [facility] [place] Comment on above: Performed By: #### C BC ####[facility] [place] [address] [place] [address]Dr. Keturah Fisher PLT 249 103/ul Normal 150-450 [facility] [place] Comment on above: Performed By: #### C BC ####[facility] [place] [address] [place], [place] [address]Dr. Keturah Fisher RBC 4.33 106/ul Normal 4.20-5.40 [facility] [place] Comment on above: Performed By: #### C BC ####[facility] [place] [address] [place] [address]Dr. Keturah Fisher WBC 10.2 103/ul Normal 4.0-11.0 [facility] [place] Comment on above: Performed By: #### C BC ####[facility] [place] [address] [place] [address]Dr. Keturah Fisher LIPASEon 07-19-2021 Lipase [Catalytic activity/Vol] 554.0 U/L Critically high 73.0-393.0 [facility] Comment on above: Performed By: #### A MY, LIPA, CMP ####[facility] [place] [address] [place] [address]Dr. Keturah Fisher PROF 14(COMP METB)on 022 Albumin [Mass/Vol] 4.0 g/dL Normal 3.4-5.0 [facility] Comment on above: Performed By: #### A MY, LIPA, CMP ####[facility] [place] [address] [place], [place] [address]Dr. Keturah Fisher Albumin/Globulin [Mass ratio] 1.1 {ratio} Normal [facility] Comment on above: Performed By: #### A MY, LIPA, CMP ####[facility] [place] [address] [place], [place] [address]Dr. Keturah Fisher ALP [Catalytic activity/Vol] 141 U/L Critically high 46-116 [facility] Comment on above: Performed By: #### A MY, LIPA, CMP ####[facility] [place] [address] [place], [place] [address]Dr. Keturah Fisher ALT [Catalytic activity/Vol] 21 U/L Normal 14-59 [facility] Comment on above: Performed By: #### A MY, LIPA, CMP ####[facility] [place] [address] [place] [address]Dr. Keturah Fisher Anion gap [Moles/Vol] 10.3 mmol/L Normal [facility] Comment on above: Performed By: #### A MY, LIPA, CMP ####[facility] [place] [address] [place] [address]Dr. Keturah Fisher AST [Catalytic activity/Vol] 22 U/L Normal 15-37 [facility] Comment on above: Performed By: #### A MY, LIPA, CMP ####[facility] [place] [address] [place] [address]Dr. Keturah Fisher Bilirubin [Mass/Vol] 0.3 mg/dL Normal 0.2-1.0 [facility] [place] Comment on above: Performed By: #### A ROB BERNSTEIN, CMP ####[facility] [place] [address] [place] [address]Dr. Keturah Fisher Calcium [Mass/Vol] 9.9 mg/dL Normal 8.5-10.1 [facility] Comment on above: Performed By: #### A ROB BERNSTEIN, CMP ####[facility] [place] [address] [place] [address]Dr. Keturah Fisher Chloride [Moles/Vol] 103 mmol/L Normal 98-107 [facility] [place] Comment on above: Performed By: #### A ROB BERNSTEIN, CMP ####[facility] [place] [address] [place], [place] [address]Dr. Keturah Fisher CO2 [Moles/Vol] 27.6 mmol/L Normal 21.0-32.0 [facility] [place] Comment on above: Performed By: #### A ROB BERNSTEIN, CMP ####[facility] [place] [address] [place] [address]Dr. Keturah Fisher Creatinine [Mass/Vol] 0.93 mg/dL Normal 0.55-1.02 [facility] [facility] Comment on above: Performed By: #### A ROB BERNSTEIN, CMP ####[facility] [id number] [place], [place] [address]Dr. Keturah Fisher EGFR-AF CITIZ[place] >60 Normal >=60 [facility] Comment on above: Performed By: #### A AMANDEEP LIPA, CMP ####[facility] [id number] [id number]. Keturah Fisher EGFR-NON AF CITIZ[place] >60 Normal >=60 [facility] Comment on above: Performed By: #### A ROB BERNSTEIN, CMP ####[facility] [id number] [place], [place] [address]Dr. Keturah Fisher Globulin (S) [Mass/Vol] 3.5 g/dL Normal [facility] Comment on above: Performed By: #### A MY, LIPA, CMP ####[facility] [id number] [address]Dr. Keturah Fisher Glucose [Mass/Vol] 99 mg/dL Normal 74-106 [facility] Comment on above: Performed By: #### A MY LIPA, CMP ####[facility] [id number] [address]Dr. Keturah Fisher Potassium [Moles/Vol] 3.9 mmol/L Normal 3.5-5.1 [facility] Comment on above: Performed By: #### A MY LIPA, CMP ####[facility] [id number] [address]Dr. Keturah Fisher Protein [Mass/Vol] 7.5 g/dL Normal 6.4-8.2 [facility] Comment on above: Performed By: #### A AMANDEEP LIPA, CMP ####[facility] [id number] [address]Dr. Keturah Fisher Sodium [Moles/Vol] 137 mmol/L Normal 136-145 [facility] Comment on above: Performed By: #### A AMANDEEP LIPA, CMP ####[facility] [id number] [address]Dr. Keturah Fisher Urea nitrogen [Mass/Vol] 9.0 mg/dL Normal 7.0-18.0 [facility] Comment on above: Performed By: #### A AMANDEEP LIPA, CMP ####[facility] [id number] [place], [place] [address]Dr. Keturah Fisher Urea nitrogen/Creatinine [Mass ratio] 9.7 mg/mg Normal [facility] Comment on above: Performed By: #### A AMANDEEP LIPA, CMP ####[facility] [id number] [place], [place] [address]Dr. Keturah Fisher XR ABD FLAT UP_PA Jorje [...] by: LYNNE PERDOMO Date: 2021-07-19 16:57 Normal [facility] COVID Quick Testingon 2021 Result Positive [employer] Other ANES Marcial 11-13-2020 ANES POST HNO ID: [id number] Author: Ion Avila MD Service: Anesthesiology Author [...] 13, 2020 TIME: 12:38 PM PAGER/CONTACT #: [phone] Normal [facility] NURSING PROGon 11-13-2020 NURSING PROG HNO ID: [id number] Author: Viky Nguyen RN Service: Nursing Author [...] None Electronically Signed By: Yaquelin Nguyen RN [facility] NURSING PROG HNO ID: [id number] Author: Landy Smith RN Service: Nursing Author [...] LIMITATIONS AFFECTING LEARNING: None Electronically Signed By: Lnady Smith RN In Department: [facility] CHIOMA RAINEY ([id number]) 1970 F Date Time Provider Department 11/07/20 [...] have family/friend present for procedure? 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 Any barriers to Patient learning: Patient/Patient Medical Technologist Chemistry responded appropriately on phone. Type of instruction [...] by NASREEN GORMAN on 11/07/20 Normal [facility] Amylaseon 03-26-2020 Amylase [Catalytic activity/Vol] 185 U/L High 28 - 100 U/L [place] CBC Auto Differentialon 03-09 Basophils (Bld) [#/Vol] 0.06 10*3/uL [place] Basophils/100 WBC (Bld) 1 % 0 - 2 % [place] Differential Type NOT REPORTED [place] Eosinophils (Bld) [#/Vol] 0.12 10*3/uL [place] Eosinophils/100 WBC (Bld) 1 % 1 - 4 % [place] Erythrocyte distribution width (RBC) [Ratio] 12.4 % 11.8 - 14.4 % [place] Hematocrit (Bld) [Volume fraction] 40.6 % 36.3 - 47.1 % [place] Hemoglobin (Bld) [Mass/Vol] 13.7 g/dL 11.9 - 15.1 g/dL [place] Immature granulocytes (Bld) [#/Vol] 0 % 0 [place] Immature granulocytes (Bld) [#/Vol] 10*3/uL [place] Lymphocytes (Bld) [#/Vol] 2.62 10*3/uL [place] Lymphocytes/100 WBC (Bld) 27 % 24 - 43 % [place] MCH (RBC) [Entitic mass] 33.4 pg 25.2 - 33.5 pg [place] MCHC (RBC) [Mass/Vol] 33.7 g/dL 28.4 - 34.8 g/dL [place] MCV (RBC) [Entitic vol] 99.0 fL 82.6 - 102.9 fL [place] Monocytes (Bld) [#/Vol] 0.78 10*3/uL [place] Monocytes/100 WBC (Bld) 8 % 3 - 12 % [place] Platelet mean volume (Bld) [Entitic vol] 9.4 fL 8.1 - 13.5 fL [place] Platelets (Bld) [#/Vol] 235 10*3/uL [place] Platelets (Bld) [#/Vol] NOT REPORTED [place] RBC (Bld) [#/Vol] 4.10 10*6/uL 3.95 - 5.11 m/uL [place] RBC morphology finding Nom (Bld) NOT REPORTED [place] Segmented neutrophils/100 WBC (Bld) 63 % 36 - 65 % [place] Segs Absolute 5.96 [place] WBC (Bld) [#/Vol] 9.6 10*3/uL [place] WBC (Bld) [#/Vol] 0.0 10*3/uL 0.0 per 100 WBC [place] WBC Morphology NOT REPORTED [place] Comprehensive Metabolic Pane l w/ Reflex to MGon 03-26-2020 Albumin [Mass/Vol] 4.3 g/dL 3.5 - 5.2 g/dL [place] Albumin/Globulin [Mass ratio] 1.7 {ratio} [place] ALP [Catalytic activity/Vol] 117 U/L High 35 - 104 U/L [place] ALT [Catalytic activity/Vol] 11 U/L 5 - 33 U/L [place] Anion gap [Moles/Vol] 9 mmol/L 9 - 17 mmol/L [place] AST [Catalytic activity/Vol] 18 U/L <32 [place] Bilirubin Ql (U) 0.15 mg/dL Low 0.3 - 1.2 mg/dL [place] Bun/Cre Ratio 12 [place] Calcium [Mass/Vol] 9.7 mg/dL 8.6 - 10. 4 mg/dL [place] Chloride [Moles/Vol] 102 mmol/L 98 - 10 7 mmol/L [place] CO2 [Moles/Vol] 25 mmol/L 20 - 31 mmol/L [place] Creatinine [Mass/Vol] 0.74 mg/dL 0.5 - 0.9 mg/dL [place] GFR >60 >60 mL/min [place] GFR Non- >60 >60 mL/min [place] Glucose [Mass/Vol] 94 mg/dL 70 - 99 mg/dL [place] Potassium [Moles/Vol] 4.2 mmol/L 3.7 - 5.3 mmol/L [place] Protein [Mass/Vol] 6.8 g/dL 6.4 - 8.3 g/dL [place] Sodium [Moles/Vol] 136 mmol/L 135 - 144 mmol/L [place] Urea nitrogen [Mass/Vol] 9 mg/dL 6 - 20 mg/dL [place] Lactic Acidon 03-26-2020 Lactate [Moles/Vol] 1.3 mmol/L 0.5 - 2. 2 mmol/L [place] Lipaseon 03-26-2020 Interpretation and review of laboratory results Abnormal [place] Lipase [Catalytic activity/Vol] 225 U/L Critically high 13 - 60 U/L [place] Metabolic Panelon 03-26-2020 GFR/1.73 sq M predicted among non-blacks MDRD (S/P/Bld) [Vol rate/Area] [place] Comment on above: Average GFR for 50-5 9 years old: 93 mL/min/1.73sq m Chronic Kidney Disease: <60 mL/min/1.73sq m Kidney failure: <15 mL/min/1.73sq m eGFR calculated using average adult body mass. Additional eGFR calculator available at: http://www.[employer]/multiple_crcl_2012.htm Stage 1: Some kidney damage normal GFR Stage 2: Mild kidney damage GFR 60-89 Stage 3: Moderate kidney damage GFR 30-59 Stage 4: Severe kidney damage GFR 15-29 Stage 5: Severe kidney damage GFR <15 ESRD - chronic treatment by dialysis or transplant Otheron 03-26-2020 Interpretation and review of laboratory results Abnormal [place] SPECIMEN REJECTIONon 021 Ordered Test CDP [place], [place] Reason for Rejection Unable to perform testing: Specimen clotted. [place] Specimen source Nom (Unsp spec) .BLOOD [place] - NOT REPORTED [place] Urinalysis, reflex to micros copicon 03-26-2020 Bilirubin Urine Negative [facility]IVE [facility] [place] [place] Color, UA YELLOW YELLOW [place] Glucose, Ur Negative NEGATIVE [place] Ketones Ql (U) Negative NEGATIVE [place] Leukocyte esterase Test strip Ql (U) Negative NEGATIVE [place] Nitrite, Urine Negative NEGATIVE [place] pH, UA 5.5 [place] Protein (U) [Mass/Vol] Negative NEGATIVE [place] Specific [place], UA 1.010 [place] Turbidity UA CLEAR CLEAR [place], [place] Urinalysis Comments NOT REPORTED [place] Urine Hgb Negative NEGATIVE [place] Urobilinogen, Urine Normal Normal [place] CBC auto differentialon 08-07 Basophils (Bld) [#/Vol] 0.04 10*3/uL [place] Basophils/100 WBC (Bld) 1 % 0 - 2 % [place] Differential Type NOT REPORTED [place] Eosinophils (Bld) [#/Vol] 0.10 10*3/uL [place] Eosinophils/100 WBC (Bld) 1 % 1 - 4 % [place] Erythrocyte distribution width (RBC) [Ratio] 13.0 % 11.8 - 14.4 % [place] Hematocrit (Bld) [Volume fraction] 35.2 % Low 36.3 - 47.1 % [place] Hemoglobin (Bld) [Mass/Vol] 11.7 g/dL Low 11.9 - 15.1 g/dL [place] Immature granulocytes (Bld) [#/Vol] 10*3/uL [place] Immature granulocytes (Bld) [#/Vol] 0 % 0 [place] Interpretation and review of laboratory results Abnormal [place] Lymphocytes (Bld) [#/Vol] 1.87 10*3/uL [place] Lymphocytes/100 WBC (Bld) 22 % Low 24 - 43 % [place] MCH (RBC) [Entitic mass] 32.5 pg 25.2 - 33.5 pg [place] MCHC (RBC) [Mass/Vol] 33.2 g/dL 28.4 - 34.8 g/dL [place] MCV (RBC) [Entitic vol] 97.8 fL 82.6 - 102.9 fL [place] Monocytes (Bld) [#/Vol] 0.86 10*3/uL [place] Monocytes/100 WBC (Bld) 10 % 3 - 12 % [place] Platelet mean volume (Bld) [Entitic vol] 9.8 fL 8.1 - 13.5 fL [place] Platelets (Bld) [#/Vol] NOT REPORTED [place] Platelets (Bld) [#/Vol] 178 10*3/uL [place] RBC (Bld) [#/Vol] 3.60 10*6/uL Low 3.95 - 5.11 m/uL [place] RBC morphology finding Nom (Bld) NOT REPORTED [place] Segmented neutrophils/100 WBC (Bld) 66 % High 36 - 65 % [place] Segs Absolute 5.53 [place] WBC (Bld) [#/Vol] 0.0 10*3/uL 0.0 per 100 WBC [place] WBC (Bld) [#/Vol] 8.4 10*3/uL [place] WBC Morphology NOT REPORTED [place] Lipaseon 08-25-2019 Lipase [Catalytic activity/Vol] 42 U/L 13 - 60 U/L [place] CBC auto differentialon 08-07 Basophils (Bld) [#/Vol] 0.04 10*3/uL [place] Basophils/100 WBC (Bld) 1 % 0 - 2 % [place] Differential Type NOT REPORTED [place] Eosinophils (Bld) [#/Vol] 0.08 10*3/uL [place] Eosinophils/100 WBC (Bld) 1 % 1 - 4 % [place] Erythrocyte distribution width (RBC) [Ratio] 12.9 % 11.8 - 14.4 % [place] Hematocrit (Bld) [Volume fraction] 35.9 % Low 36.3 - 47.1 % [place] Hemoglobin (Bld) [Mass/Vol] 11.9 g/dL 11.9 - 15.1 g/dL [place] Immature granulocytes (Bld) [#/Vol] 0 % 0 [place] Immature granulocytes (Bld) [#/Vol] 0.03 10*3/uL [place] Interpretation and review of laboratory results Abnormal [place] Lymphocytes (Bld) [#/Vol] 1.79 10*3/uL [place] Lymphocytes/100 WBC (Bld) 22 % Low 24 - 43 % [place] MCH (RBC) [Entitic mass] 32.3 pg 25.2 - 33.5 pg [place] MCHC (RBC) [Mass/Vol] 33.1 g/dL 28.4 - 34.8 g/dL [place] MCV (RBC) [Entitic vol] 97.6 fL 82.6 - 102.9 fL [place] Monocytes (Bld) [#/Vol] 0.75 10*3/uL [place] Monocytes/100 WBC (Bld) 9 % 3 - 12 % [place] Platelet mean volume (Bld) [Entitic vol] 10.1 fL 8.1 - 13.5 fL [place] Platelets (Bld) [#/Vol] 176 10*3/uL [place] Platelets (Bld) [#/Vol] NOT REPORTED [place] RBC (Bld) [#/Vol] 3.68 10*6/uL Low 3.95 - 5.11 m/uL [place] RBC morphology finding Nom (Bld) NOT REPORTED [place] Segmented neutrophils/100 WBC (Bld) 67 % High 36 - 65 % [place] Segs Absolute 5.61 [place] WBC (Bld) [#/Vol] 0.0 10*3/uL 0.0 per 100 WBC [place] WBC (Bld) [#/Vol] 8.3 10*3/uL [place] WBC Morphology NOT REPORTED [place] Lipaseon 08-24-2019 Interpretation and review of laboratory results Abnormal [place] Lipase [Catalytic activity/Vol] 69 U/L High 13 - 60 U/L [place] CBC auto differentialon 08-07 Basophils (Bld) [#/Vol] 0.05 10*3/uL [place] Basophils/100 WBC (Bld) 1 % 0 - 2 % [place] Differential Type NOT REPORTED [place] Eosinophils (Bld) [#/Vol] 0.13 10*3/uL [place] Eosinophils/100 WBC (Bld) 2 % 1 - 4 % [place] Erythrocyte distribution width (RBC) [Ratio] 13.2 % 11.8 - 14.4 % [place] Hematocrit (Bld) [Volume fraction] 36.7 % 36.3 - 47.1 % [place] Hemoglobin (Bld) [Mass/Vol] 11.8 g/dL Low 11.9 - 15.1 g/dL [place] Immature granulocytes (Bld) [#/Vol] 0 % 0 [place] Immature granulocytes (Bld) [#/Vol] 10*3/uL [place] Interpretation and review of laboratory results Abnormal [place] Lymphocytes (Bld) [#/Vol] 2.39 10*3/uL [place] Lymphocytes/100 WBC (Bld) 28 % 24 - 43 % [place] MCH (RBC) [Entitic mass] 32.1 pg 25.2 - 33.5 pg [place] MCHC (RBC) [Mass/Vol] 32.2 g/dL 28.4 - 34.8 g/dL [place] MCV (RBC) [Entitic vol] 99.7 fL 82.6 - 102.9 fL [place] Monocytes (Bld) [#/Vol] 0.77 10*3/uL [place] Monocytes/100 WBC (Bld) 9 % 3 - 12 % [place] Platelet mean volume (Bld) [Entitic vol] 10.1 fL 8.1 - 13.5 fL [place] Platelets (Bld) [#/Vol] 174 10*3/uL [place] Platelets (Bld) [#/Vol] NOT REPORTED [place] RBC (Bld) [#/Vol] 3.68 10*6/uL Low 3.95 - 5.11 m/uL [place] RBC morphology finding Nom (Bld) NOT REPORTED [place] Segmented neutrophils/100 WBC (Bld) 60 % 36 - 65 % [place] Segs Absolute 5.22 [place] WBC (Bld) [#/Vol] 0.0 10*3/uL 0.0 per 100 WBC [place] WBC (Bld) [#/Vol] 8.6 10*3/uL [place] WBC Morphology NOT REPORTED [place] Comprehensive metabolic pane nimesh 08-23-2019 Albumin [Mass/Vol] 3.4 g/dL Low 3.5 - 5.2 g/dL [place] Albumin/Globulin [Mass ratio] 1.7 {ratio} [place] ALP [Catalytic activity/Vol] 102 U/L 35 - 104 U/L [place] ALT [Catalytic activity/Vol] 34 U/L High 5 - 33 U/L [place] Anion gap [Moles/Vol] 7 mmol/L Low 9 - 17 mmol/L [place] AST [Catalytic activity/Vol] 95 U/L High <32 [place] Bilirubin Ql (U) 0.46 mg/dL 0.3 - 1.2 mg/dL [place] Bun/Cre Ratio 11 [place] Calcium [Mass/Vol] 8.4 mg/dL Low 8.6 - 10. 4 mg/dL [place] Chloride [Moles/Vol] 109 mmol/L High 98 - 10 7 mmol/L [place] CO2 [Moles/Vol] 22 mmol/L 20 - 31 mmol/L [place] Creatinine [Mass/Vol] 0.66 mg/dL 0.5 - 0.9 mg/dL [place] GFR >60 >60 mL/min [place] GFR Non- >60 >60 mL/min [place] Glucose [Mass/Vol] 89 mg/dL 70 - 99 mg/dL [place] Potassium [Moles/Vol] 4.3 mmol/L 3.7 - 5.3 mmol/L [place] Protein [Mass/Vol] 5.4 g/dL Low 6.4 - 8.3 g/dL [place] Sodium [Moles/Vol] 138 mmol/L 135 - 144 mmol/L [place] Urea nitrogen [Mass/Vol] 7 mg/dL 6 - 20 mg/dL [place] Lipaseon 08-23-2019 Lipase [Catalytic activity/Vol] 96 U/L High 13 - 60 U/L [place] Metabolic Panelon 08-23-2019 GFR/1.73 sq M predicted among non-blacks MDRD (S/P/Bld) [Vol rate/Area] [place] Comment on above: Stage 1: Some [...] body mass. Additional eGFR calculator available at: http://www.[employer]/multiple_crcl_2012.htm Otheron 08-23-2019 Interpretation and review of laboratory results Abnormal [place] CBC Auto Differentialon 08-07 Basophils (Bld) [#/Vol] 0.06 10*3/uL [place] Basophils/100 WBC (Bld) 1 % 0 - 2 % [place] Differential Type NOT REPORTED [place] Eosinophils (Bld) [#/Vol] 0.11 10*3/uL [place] Eosinophils/100 WBC (Bld) 1 % 1 - 4 % [place] Erythrocyte distribution width (RBC) [Ratio] 13.2 % 11.8 - 14.4 % [place] Hematocrit (Bld) [Volume fraction] 41.8 % 36.3 - 47.1 % [place] Hemoglobin (Bld) [Mass/Vol] 13.7 g/dL 11.9 - 15.1 g/dL [place] Immature granulocytes (Bld) [#/Vol] 0.03 10*3/uL [place] Immature granulocytes (Bld) [#/Vol] 0 % 0 [place] Interpretation and review of laboratory results Abnormal [place] Lymphocytes (Bld) [#/Vol] 2.23 10*3/uL [place] Lymphocytes/100 WBC (Bld) 24 % 24 - 43 % [place] MCH (RBC) [Entitic mass] 32.6 pg 25.2 - 33.5 pg [place] MCHC (RBC) [Mass/Vol] 32.8 g/dL 28.4 - 34.8 g/dL [place] MCV (RBC) [Entitic vol] 99.5 fL 82.6 - 102.9 fL [place] Monocytes (Bld) [#/Vol] 0.72 10*3/uL [place] Monocytes/100 WBC (Bld) 8 % 3 - 12 % [place] Platelet mean volume (Bld) [Entitic vol] 10.0 fL 8.1 - 13.5 fL [place] Platelets (Bld) [#/Vol] NOT REPORTED [place] Platelets (Bld) [#/Vol] 213 10*3/uL [place] RBC (Bld) [#/Vol] 4.20 10*6/uL 3.95 - 5.11 m/uL [place] RBC morphology finding Nom (Bld) NOT REPORTED [place] Segmented neutrophils/100 WBC (Bld) 66 % High 36 - 65 % [place] Segs Absolute 6.22 [place] WBC (Bld) [#/Vol] 0.0 10*3/uL 0.0 per 100 WBC [place] WBC (Bld) [#/Vol] 9.4 10*3/uL [place] WBC Morphology NOT REPORTED [place] Comprehensive Metabolic Pane nimesh 08-22-2019 Albumin [Mass/Vol] 4.1 g/dL 3.5 - 5.2 g/dL [place] Albumin/Globulin [Mass ratio] 1.6 {ratio} [place] ALP [Catalytic activity/Vol] 109 U/L High 35 - 104 U/L [place] ALT [Catalytic activity/Vol] 13 U/L 5 - 33 U/L [place] Anion gap [Moles/Vol] 9 mmol/L 9 - 17 mmol/L [place] AST [Catalytic activity/Vol] 22 U/L <32 [place] Bilirubin Ql (U) <0.10 Low 0.3 - 1.2 mg/dL [place] Bun/Cre Ratio 13 [place] Calcium [Mass/Vol] 9.2 mg/dL 8.6 - 10. 4 mg/dL [place] Chloride [Moles/Vol] 103 mmol/L 98 - 10 7 mmol/L [place] CO2 [Moles/Vol] 24 mmol/L 20 - 31 mmol/L [place] Creatinine [Mass/Vol] 0.63 mg/dL 0.5 - 0.9 mg/dL [place] GFR >60 >60 mL/min [place] GFR Non- >60 >60 mL/min [place] Glucose [Mass/Vol] 92 mg/dL 70 - 99 mg/dL [place] Interpretation and review of laboratory results Abnormal [place] Potassium [Moles/Vol] 3.8 mmol/L 3.7 - 5.3 mmol/L [place] Protein [Mass/Vol] 6.7 g/dL 6.4 - 8.3 g/dL [place] Sodium [Moles/Vol] 136 mmol/L 135 - 144 mmol/L [place] Urea nitrogen [Mass/Vol] 8 mg/dL 6 - 20 mg/dL [place] Lactic Acid, Plasmaon 2019 Lactate [Moles/Vol] 1.5 mmol/L 0.5 - 2. 2 mmol/L [place] Lactic Acid, Whole Blood NOT REPORTED 0.7 - 2.1 mmol/L [place] Lipaseon 08-22-2019 Interpretation and review of laboratory results Abnormal [place] Lipase [Catalytic activity/Vol] 255 U/L Critically high 13 - 60 U/L [place] Metabolic Panelon 08-22-2019 GFR/1.73 sq M predicted among non-blacks MDRD (S/P/Bld) [Vol rate/Area] [place] Comment on above: Average GFR for 50-5 9 years old: 93 mL/min/1.73sq m Chronic Kidney Disease: <60 mL/min/1.73sq m Kidney failure: <15 mL/min/1.73sq m eGFR calculated using average adult body mass. Additional eGFR calculator available at: http://www.[employer]/multiple_crcl_2012.htm Stage 1: Some kidney damage normal GFR Stage 2: Mild kidney damage GFR 60-89 Stage 3: Moderate kidney damage GFR 30-59 Stage 4: Severe kidney damage GFR 15-29 Stage 5: Severe kidney damage GFR <15 ESRD - chronic treatment by dialysis or transplant Urinalysis with Microscopico n 08-22-2019 Amorphous, UA NOT REPORTED None [facility], [place] Bacteria, UA NOT REPORTED None [place] Bilirubin Urine Negative NEGATIVE [facility], [place] Casts UA NOT REPORTED /LPF [place] Color, UA YELLOW YELLOW [place] Crystals, UA NOT REPORTED None /HPF [place] Epithelial Cells UA 2 TO 5 [place] Glucose, Ur Negative NEGATIVE [place] Interpretation and review of laboratory results Abnormal [place] Ketones Ql (U) Negative NEGATIVE [place] Leukocyte esterase Test strip Ql (U) Negative NEGATIVE [place] Mucus, UA NOT REPORTED None [place], [place] Nitrite, Urine Negative NEGATIVE [place] Other Observations UA NOT REPORTED NOT REQ. [place] pH, UA 6.0 [place] Protein (U) [Mass/Vol] Negative NEGATIVE [place] RBC (U) [#/Vol] None [place] Renal Epithelial, UA NOT REPORTED 0 /HPF [place] Specific [place], UA <1.005 Low [place] Trichomonas, UA NOT REPORTED None [facility] [place] Turbidity UA CLEAR CLEAR [place] Urinalysis Comments NOT REPORTED [place] Urine Hgb Negative NEGATIVE [place] Urobilinogen, Urine Normal Normal [place] WBC, UA None [place] Yeast, UA NOT REPORTED None [place] - [place] CBC WITH AUTO DIFFERENTIALon 03-04-2018 Basophils Auto #/vol (Bld) 0.07 10*3/uL Invalid Interpretation Code [facility] Basophils/100 WBC Auto (Bld) 0.7 % Invalid Interpretation Code [facility] Eosinophils Auto #/vol (Bld) 0.09 10*3/uL Invalid Interpretation Code [facility] Eosinophils/100 WBC Auto (Bld) 0.9 % Invalid Interpretation Code [facility] Erythrocyte distribution width Auto Entitic volume (RBC) 12.8 % Invalid Interpretation Code 11.6 - 14.8 % [facility] Hematocrit Auto Volume Fraction (Bld) 45.0 % Invalid Interpretation Code 36 - 46 % [facility] Hemoglobin mass conc (Bld) 15.4 g/dL Invalid Interpretation Code 12 - 16 g/dL [facility] Immature granulocytes #/vol (Bld) 0.03 10*3/uL Invalid Interpretation Code [facility] Immature granulocytes/100 WBC (Bld) 0.30 % Invalid Interpretation Code [facility] Comment on above: The IG parameter is the percentage of metamyelocytes, myelocytes, and promyelocytes. Interpretation and review of laboratory results Abnormal Invalid Interpretation Code [facility] Lymphocytes Auto #/vol (Bld) 2.22 10*3/uL Invalid Interpretation Code [facility] Lymphocytes/100 WBC Auto (Bld) 21.0 % Invalid Interpretation Code [facility] MCH Auto Entitic mass (RBC) 33.6 pg Invalid Interpretation Code 26 - 34 pg [facility] MCHC Auto mass conc (RBC) 34.2 g/dL Invalid Interpretation Code 31 - 37 g/dL [facility] MCV Auto Entitic volume (RBC) 98.0 fL Invalid Interpretation Code 80 - 100 fL [facility] Monocytes Auto #/vol (Bld) 0.82 10*3/uL Invalid Interpretation Code [facility] Monocytes/100 WBC Auto (Bld) 7.8 % Invalid Interpretation Code [facility] Neutrophils Auto #/vol (Bld) 7.33 10*3/uL High [facility] Neutrophils/100 WBC Auto (Bld) 69.3 % Invalid Interpretation Code [facility] Nucleated RBC #/vol (Bld) 0.00 10*3/uL Invalid Interpretation Code [facility] Nucleated RBC/100 WBC Ratio (Bld) 0.0 % Invalid Interpretation Code [facility] Platelet mean volume Auto Entitic volume (Bld) 10.1 fL Invalid Interpretation Code 9 - 15.5 fL [facility] Platelets Auto #/vol (Bld) 254 10*3/uL Invalid Interpretation Code [facility] RBC Auto #/vol (Bld) 4.59 10*6/uL Invalid Interpretation Code [facility] WBC Auto #/vol (Bld) 10.56 10*3/uL Invalid Interpretation Code [facility] Chem 7on 03-04-2018 Anion gap 3 molar conc 15 mmol/L Invalid Interpretation Code 10 - 20 mmol/L [facility] Chloride molar conc 103 mmol/L Invalid Interpretation Code 98 - 108 mmol/L [facility] Creatinine mass conc 0.85 mg/dL Invalid Interpretation Code 0.4 - 1.1 mg/dL [facility] GFR/1.73 sq M predicted among non-blacks MDRD vol rate/area (S/P/Bld) The eGFR should be used for monitoring renal function only and not for medication dosing. Invalid Interpretation Code [facility] GFR/1.73 sq M.predicted CKD-EPI vol rate/area (S/P/Bld) 81 Invalid Interpretation Code >=60 mL/min/1.7 3 m2 [facility] Glucose mass conc 92 mg/dL Invalid Interpretation Code 65 - 99 mg/dL [facility] HCO3 molar conc 25 mmol/L Invalid Interpretation Code 21 - 32 mmol/L [facility] Potassium molar conc 4.4 mmol/L Invalid Interpretation Code 3.5 - 5.1 mmol/L [facility] Sodium molar conc 139 mmol/L Invalid Interpretation Code 135 - 145 mmol/L [facility] Urea nitrogen mass conc 7 mg/dL Low 8 - 25 mg/dL [facility] Urea nitrogen/Creatinine mass ratio 8.2 mg/mg Low [facility] Hepatic Function Panel (LFT) on 03-04-2018 Albumin mass conc 4.5 g/dL Invalid Interpretation Code 3.2 - 5.2 g/dL [facility] ALP enzyme act/vol 97 U/L Invalid Interpretation Code 40 - 150 U/L [facility] ALT enzyme act/vol 9 U/L Invalid Interpretation Code 0 - 40 U/L [facility] AST enzyme act/vol 15 U/L Invalid Interpretation Code 0 - 45 U/L [facility] Bilirubin mass conc mg/dL Invalid Interpretation Code 0 - 1.3 mg/dL [facility] Bilirubin.conjugated mass conc mg/dL Invalid Interpretation Code 0 - 0.4 mg/dL [facility] Interpretation and review of laboratory results Normal Invalid Interpretation Code [facility] Protein mass conc 7.2 g/dL Invalid Interpretation Code 6 - 8 g/dL [facility] Lipaseon 03-04-2018 Lipase enzyme act/vol 179 U/L High 15 - 6 5 U/L [facility] Otheron 03-04-2018 Extra Tube Hold for add-ons. Invalid Interpretation Code [facility] Comment on above: Auto resulted. Interpretation and review of laboratory results Abnormal Invalid Interpretation Code [facility] URINALYSISon 03-04-2018 Bacteria Auto Ql (U) Rare Abnormal None Se en /hpf [facility] Bilirubin Ql (U) Negative Invalid Interpretation Code Negative [facility] Clarity Refractometry automated Nom (U) Clear Invalid Interpretation Code Clear [facility] Color Auto Nom (U) Colorless Invalid Interpretation Code Colorless, Yellow [facility] Epithelial cells.squamous Auto #/area (Urine sed) 1 Invalid Interpretation Code [facility] Glucose Automated test strip mass conc (U) Negative Invalid Interpretation Code Negative mg/dL [facility] Hemoglobin Automated test strip Ql (U) Negative Invalid Interpretation Code Negative [facility] Interpretation and review of laboratory results Abnormal Invalid Interpretation Code [facility] Ketones mass conc (U) Negative Invalid Interpretation Code Negative mg/dL [facility] Leukocyte esterase Automated test strip Ql (U) Negative Invalid Interpretation Code Negative [facility] Nitrite Automated test strip Ql (U) Negative Invalid Interpretation Code Negative [facility] pH Test strip (U) 7.0 [pH] Invalid Interpretation Code [facility] Protein mass conc (U) Negative Invalid Interpretation Code Negative mg/dL [facility] RBC Auto #/area (Urine sed) 2 Invalid Interpretation Code [facility] Specific gravity Automated test strip Relative Density (U) 1.004 Low [facility] Urobilinogen Test strip Qn (U) <2.0 Invalid Interpretation Code <2.0 mg/dL [facility] WBC Auto #/area (Urine sed) <1 Invalid Interpretation Code [facility] Microscopic examinat ion is performed on all urinalysis samples and only positive findings are reported. The test for blood on the chemical analytic portion of urinalysis may also be positive due to hemoglobinuria and myoglobinuria and if red blood cells are present they are quantified by microscopic examination. Invalid Interpretation Code [facility] BMPon 08-24-2017 Anion gap 18 mmol/L Invalid Interpretation Code 10 - 20 mmol/L [facility] Bicarbonate (HCO3) 27 mmol/L Invalid Interpretation Code 21 - 32 mmol/L [facility] BUN/Creatinine Ratio 10.1 mg/mg Invalid Interpretation Code 10.0 - 20.0 [facility] Calcium 10.6 mg/dL High 8.4 - 10.2 mg/dL [facility] Chloride 101 mmol/L Invalid Interpretation Code 98 - 108 mmol/L [facility] Creatinine 0.69 mg/dL Invalid Interpretation Code 0.4 - 1.1 mg/dL [facility] eGFR (non-black) 103 mL/min/{1.73_m2} Invalid Interpretation Code >=60 [facility] eGFR (non-black) The eGFR should be u sed for monitoring renal function only and not for medication dosing. Invalid Interpretation Code [facility] Glucose mass conc 105 mg/dL High 65 - 99 mg/dL [facility] Interpretation and review of laboratory results Abnormal Invalid Interpretation Code [facility] Potassium molar conc 4.1 mmol/L Invalid Interpretation Code 3.5 - 5.1 mmol/L [facility] Sodium 142 mmol/L Invalid Interpretation Code 135 - 145 mmol/L [facility] Urea nitrogen 7 mg/dL Low 8 - 25 mg/dL [facility] CBC Auto Differentialon 08-07 Basophils Auto #/vol (Bld) 0.08 K/mcL Invalid Interpretation Code 0.00 - 0.30 [facility] Basophils/100 WBC Auto (Bld) 0.6 % Invalid Interpretation Code [facility] Eosinophils 0.05 K/mcL Invalid Interpretation Code 0.00 - 0.50 [facility] Eosinophils/100 leukocytes 0.4 % Invalid Interpretation Code [facility] Erythrocyte distribution width Auto Entitic volume (RBC) 12.2 % Invalid Interpretation Code 11.6 - 14.8 % [facility] Erythrocytes (RBC) 4.60 M/mcL Invalid Interpretation Code 4.00 - 5.20 [facility] Hematocrit (HCT) 43.4 % Invalid Interpretation Code 36 - 46 % [facility] Hemoglobin mass conc (Bld) 15.2 g/dL Invalid Interpretation Code 12 - 16 g/dL [facility] Immature granulocytes #/vol (Bld) 0.05 K/mcL Invalid Interpretation Code 0.00 - 0.30 [facility] Immature granulocytes/100 WBC (Bld) 0.40 % Invalid Interpretation Code [facility] Comment on above: The IG parameter is the percentage of metamyelocytes, myelocytes, and promyelocytes. Lymphocytes 2.40 K/mcL Invalid Interpretation Code 0.90 - 4.00 [facility] Lymphocytes/100 leukocytes 18.1 % Invalid Interpretation Code [facility] MCH 33.0 pg Invalid Interpretation Code 26 - 34 pg [facility] MCHC mass conc (RBC) 35.0 g/dL Invalid Interpretation Code 31 - 37 g/dL [facility] MCV 94.3 fL Invalid Interpretation Code 80 - 100 fL [facility] Monocytes 0.85 K/mcL Invalid Interpretation Code 0.30 - 0.90 [facility] Monocytes/100 leukocytes 6.4 % Invalid Interpretation Code [facility] Neutrophils 9.81 K/mcL High 1.70 - 7.00 [facility] Neutrophils/100 WBC Auto (Bld) 74.1 % Invalid Interpretation Code [facility] Nucleated erythrocytes 0.00 K/mcL Invalid Interpretation Code 0.00 - 0.00 [facility] Nucleated erythrocytes/100 erythrocytes 0.0 % Invalid Interpretation Code [facility] Platelet mean volume (PMV) 10.0 fL Invalid Interpretation Code 9 - 15.5 fL [facility] Platelets 242 K/mcL Invalid Interpretation Code 150 - 400 [facility] WBC (Leukocytes) 13.24 K/mcL High 4.50 - 11.00 [facility] CBC w/ Diffon 08-24-2017 Creatinine The following orders were created for panel order CBC w/ Diff. Procedure Abnormality Status --------- ------ CBC Auto Differential[[id number]] Abnormal Final result Please view results for these tests on the individual orders. Invalid Interpretation Code [facility] CT ABDOMEN PELVIS WITH IV [...] and demonstrated a prominent signal loss on [id number] images on MRI performed 09/06/2014, compatible with [...] ThuAug 24, 2017 4:03:34 PM EDT Normal [facility] Comment on above: Order Comment: Reaso n for exam?:abd painInjury/Trauma or Illness?:Illness/OtherHow long have you had these symptoms (acute/chronic)?:ChronicType of Exam?:Subsequent/Follow-upAdditional signs and symptoms?:chronic pancreatitis CT Abdomen Pelvis With IV Co ntrast Onlyon 08-24-2017 CT Abdomen Pelvis With IV Contrast Only Interface, Rad In [facility] - 08/24/2017 4:06 PM EDT EXAMINATION: CT [...] and demonstrated a prominent signal loss on [id number] images on MRI performed 09/06/2014, compatible with [...] probably remain. 5. Small left adrenal adenoma. FromUs/Table8 Workstation ID: [id number] Invalid Interpretation Code [facility] CT Abdomen Pelvis With IV Contrast [...] and demonstrated a prominent signal loss on [id number] images on MRI performed 09/06/2014, compatible with [...] suspicious focal osseous lesions. Invalid Interpretation Code [facility] CT Abdomen Pelvis With IV Contrast [...] probably remain. 5. Small left adrenal adenoma. JRS/Table8 Workstation ID: [id number] Invalid Interpretation Code [facility] Hepatic Function Panel (LFT) on 08-24-2017 Alanine aminotransferase (ALT) 14 U/L Invalid Interpretation Code 0 - 40 U/L [facility] Albumin 4.7 g/dL Invalid Interpretation Code 3.2 - 5.2 g/dL [facility] Alkaline phosphatase (ALP) 91 U/L Invalid Interpretation Code 40 - 150 U/L [facility] Aspartate aminotransferase (AST) 17 U/L Invalid Interpretation Code 0 - 45 U/L [facility] Bilirubin (conjugated) mg/dL Invalid Interpretation Code 0 - 0.4 mg/dL [facility] Bilirubin (total) mg/dL Invalid Interpretation Code 0 - 1.3 mg/dL [facility] Interpretation and review of laboratory results Normal Invalid Interpretation Code [facility] Protein 7.4 g/dL Invalid Interpretation Code 6 - 8 g/dL [facility] Lactic Acid, Plasmaon 2017 Lactate 1.0 mmol/L Invalid Interpretation Code 0.6 - 2 mmol/L [facility] Light Blue Topon 08-24-2017 Extra Tube Hold for add-ons. Invalid Interpretation Code [facility] Comment on above: Auto resulted. Lipaseon 08-24-2017 Lipase 51 U/L Invalid Interpretation Code 15 - 65 U/L [facility] [place] 08-24-2017 [place] Invalid Interpretation Code [facility] [place] Drawon 08-24-2017 Creatinine The following orders were created for panel order [place] Draw. Procedure Abnormality Status --------- ------ Gold Top[[id number]] Final result Light Blue Top[[id number]] Final result [place][[id number]] Final result Please view results for these tests on the individual orders. Invalid Interpretation Code [facility] 08-[facility]-2017 Bilirubin Ql (U) Negative Invalid Interpretation Code Negative [facility] Blood, Urine Negative Invalid Interpretation Code Negative [facility] Interpretation and review of laboratory results Abnormal Invalid Interpretation Code [facility] Nitrite, Urine Negative Invalid Interpretation Code Negative [facility] Squamous Epithelial 5 /hpf High 0 - [address] [facility] Transitional Epithelial <1 Invalid Interpretation Code 0 - 1 /hpf [facility] Urine, bacteria in sediment Rare Abnormal None Seen /hpf [facility] Urine, clarity Hazy Abnormal Clear [facility] Urine, color Yellow Invalid Interpretation Code Colorless, Yellow [facility] Urine, erythrocytes 1 /hpf Invalid Interpretation Code 0 - 3 [facility] Urine, glucose presence Negative Invalid Interpretation Code Negative mg/dL [facility] Urine, ketones presence Negative Invalid Interpretation Code Negative mg/dL [facility] Urine, leukocyte esterase presence Negative Invalid Interpretation Code Negative [facility] Urine, pH 7.0 [pH] Invalid Interpretation Code 5.0 - 7.0 [facility] Urine, protein Negative Invalid Interpretation Code Negative mg/dL [facility] Urine, specific gravity 1.006 1 Invalid Interpretation Code 1.005 - 1.025 [facility] Urine, urobilinogen <2.0 Invalid Interpretation Code <2.0 mg/dL [facility] WBCs, Urine 1 /hpf Invalid Interpretation Code 0 - 5 [facility] Urinalysis Microscopic examinat ion is performed on all urinalysis samples and only positive findings are reported. The test for blood on the chemical analytic portion of urinalysis may also be positive due to hemoglobinuria and myoglobinuria and if red blood cells are present they are quantified by microscopic examination. Invalid Interpretation Code [facility] BMPon 06-09-2017 Anion gap 18 mmol/L Invalid Interpretation Code 10 - 20 mmol/L [facility] Bicarbonate (HCO3) 21 mmol/L Invalid Interpretation Code 21 - 32 mmol/L [facility] BUN/Creatinine Ratio 11.0 mg/mg Invalid Interpretation Code 10.0 - 20.0 [facility] Calcium 10.2 mg/dL Invalid Interpretation Code 8.4 - 10.2 mg/dL [facility] Chloride 102 mmol/L Invalid Interpretation Code 98 - 108 mmol/L [facility] Creatinine 0.73 mg/dL Invalid Interpretation Code 0.4 - 1.1 mg/dL [facility] eGFR (non-black) The eGFR should be u sed for monitoring renal function only and not for medication dosing. Invalid Interpretation Code [facility] eGFR (non-black) 98 mL/min/{1.73_m2} Invalid Interpretation Code >=60 [facility] Glucose 80 mg/dL Invalid Interpretation Code 65 - 99 mg/dL [facility] Potassium 4.3 mmol/L Invalid Interpretation Code 3.5 - 5.1 mmol/L [facility] Sodium 137 mmol/L Invalid Interpretation Code 135 - 145 mmol/L [facility] Urea nitrogen 8 mg/dL Invalid Interpretation Code 8 - 25 mg/dL [facility] CBC Auto Differentialon 04-0 3-2018 Basophils 0.07 K/mcL Invalid Interpretation Code 0.00 - 0.30 [facility] Basophils/100 leukocytes 0.7 % Invalid Interpretation Code [facility] Eosinophils 0.10 K/mcL Invalid Interpretation Code 0.00 - 0.50 [facility] Eosinophils/100 leukocytes 1.0 % Invalid Interpretation Code [facility] Erythrocytes (RBC) 4.75 M/mcL Invalid Interpretation Code 4.00 - 5.20 [facility] Erythrocytes (RBC) 0.00 K/mcL Invalid Interpretation Code 0.00 - 0.00 [facility] Hematocrit (HCT) 46.1 % High 36 - 46 % [facility] Hemoglobin (HGB) 16.1 g/dL High 12 - 16 g/dL [facility] IG Absolute 0.02 K/mcL Invalid Interpretation Code 0.00 - 0.30 [facility] IG Percent 0.20 % Invalid Interpretation Code [facility] Lymphocytes 1.75 K/mcL Invalid Interpretation Code 0.90 - 4.00 [facility] Lymphocytes/100 leukocytes 17.9 % Invalid Interpretation Code [facility] MCH 33.9 pg Invalid Interpretation Code 26 - 34 pg [facility] MCHC 34.9 g/dL Invalid Interpretation Code 31 - 37 g/dL [facility] MCV 97.1 fL Invalid Interpretation Code 80 - 100 fL [facility] Monocytes 0.88 K/mcL Invalid Interpretation Code 0.30 - 0.90 [facility] Monocytes/100 leukocytes 9.0 % Invalid Interpretation Code [facility] Neutrophils 6.98 K/mcL Invalid Interpretation Code 1.70 - 7.00 [facility] Neutrophils/100 leukocytes 71.2 % Invalid Interpretation Code [facility] Nucleated erythrocytes/100 erythrocytes 0.0 % Invalid Interpretation Code [facility] Platelet mean volume (PMV) 10.9 fL Invalid Interpretation Code 9 - 15.5 fL [facility] Platelets 223 K/mcL Invalid Interpretation Code 150 - 400 [facility] RDW-CA 12.8 % Invalid Interpretation Code 11.6 - 14.8 % [facility] WBC (Leukocytes) 9.80 K/mcL Invalid Interpretation Code 4.50 - 11.00 [facility] Interpretation and review of laboratory results Abnormal Invalid Interpretation Code [facility] CBC w/ Diffon 06-09-2017 Creatinine The following orders were created for panel order CBC w/ Diff. Procedure Abnormality Status --------- ------ CBC Auto Differential[[id number]] Abnormal Final result Please view results for these tests on the individual orders. Invalid Interpretation Code [facility] Hepatic Function Panel (LFT) on 06-09-2017 Alanine aminotransferase (ALT) 10 U/L Invalid Interpretation Code 0 - 40 U/L [facility] Albumin 4.4 g/dL Invalid Interpretation Code 3.2 - 5.2 g/dL [facility] Alkaline phosphatase (ALP) 89 U/L Invalid Interpretation Code 40 - 150 U/L [facility] Aspartate aminotransferase (AST) 20 U/L Invalid Interpretation Code 0 - 45 U/L [facility] Bilirubin (conjugated) mg/dL Invalid Interpretation Code 0 - 0.4 mg/dL [facility] Bilirubin (total) mg/dL Invalid Interpretation Code 0 - 1.3 mg/dL [facility] Interpretation and review of laboratory results Normal Invalid Interpretation Code [facility] Protein 7.3 g/dL Invalid Interpretation Code 6 - 8 g/dL [facility] Lipaseon 06-09-2017 Lipase 50 U/L Invalid Interpretation Code 15 - 65 U/L [facility] [place] Drawon 06-09-2017 Creatinine The following orders were created for panel order [place] Draw. Procedure Abnormality Status --------- ------ Urine Container[[id number]] Final result Please view results for these tests on the individual orders. Invalid Interpretation Code [facility] Urinalysison 06-09-2017 Bilirubin, Urine Negative Invalid Interpretation Code Negative [facility] Blood, Urine Negative Invalid Interpretation Code Negative [facility] Calcium Many Abnormal None Seen /hpf [facility] Mucus, Urine Rare Invalid Interpretation Code None Seen, Rare /lpf [facility] Nitrite, Urine Negative Invalid Interpretation Code Negative [facility] RBCs, Urine 1 /hpf Invalid Interpretation Code 0 - 3 [facility] Squamous Epithelial 4 /hpf Invalid Interpretation Code 0 - 4 [facility] Urine, bacteria in sediment None Seen Invalid Interpretation Code None Seen /hpf [facility] Urine, clarity Cloudy Abnormal Clear [facility] Urine, color Yellow Invalid Interpretation Code Colorless, Yellow [facility] Urine, glucose presence Negative Invalid Interpretation Code Negative mg/dL [facility] Urine, ketones presence Trace Abnormal Negative mg/dL [facility] Urine, leukocyte esterase presence Negative Invalid Interpretation Code Negative [facility] Urine, pH 5.0 [pH] Invalid Interpretation Code 5.0 - 7.0 [facility] Urine, protein Negative Invalid Interpretation Code Negative mg/dL [facility] Urine, specific gravity 1.024 1 Invalid Interpretation Code 1.005 - 1.025 [facility] Urine, urobilinogen 2.0 mg/dL Abnormal <2.[address] [facility] WBCs, Urine 1 /hpf Invalid Interpretation Code 0 - 5 [facility] Urinalysis Microscopic examinat ion is performed on all urinalysis samples and only positive findings are reported. The test for blood on the chemical analytic portion of urinalysis may also be positive due to hemoglobinuria and myoglobinuria and if red blood cells are present they are quantified by microscopic examination. Invalid Interpretation Code [facility] Urine Containeron 06-09-2017 Urine Container Invalid Interpretation Code [facility] CBCon 05-15-2017 Erythrocytes (RBC) 3.76 M/mcL Low 4.00 - 5.20 [facility] Erythrocytes (RBC) 0.00 K/mcL Invalid Interpretation Code 0.00 - 0.00 [facility] Hematocrit (HCT) 37.1 % Invalid Interpretation Code 36 - 46 % [facility] Hemoglobin (HGB) 12.4 g/dL Invalid Interpretation Code 12 - 16 g/dL [facility] MCH 33.0 pg Invalid Interpretation Code 26 - 34 pg [facility] MCHC 33.4 g/dL Invalid Interpretation Code 31 - 37 g/dL [facility] MCV 98.7 fL Invalid Interpretation Code 80 - 100 fL [facility] Nucleated erythrocytes/100 erythrocytes 0.0 % Invalid Interpretation Code [facility] Platelet mean volume (PMV) 9.9 fL Invalid Interpretation Code 9 - 15.5 fL [facility] Platelets 197 K/mcL Invalid Interpretation Code 150 - 400 [facility] RDW-CA 12.6 % Invalid Interpretation Code 11.6 - 14.8 % [facility] WBC (Leukocytes) 7.55 K/mcL Invalid Interpretation Code 4.50 - 11.00 [facility] Comprehensive Metabolic Pane nimesh 05-15-2017 Alanine aminotransferase (ALT) 9 U/L Invalid Interpretation Code 0 - 40 U/L [facility] Albumin 3.3 g/dL Invalid Interpretation Code 3.2 - 5.2 g/dL [facility] Alkaline phosphatase (ALP) 73 U/L Invalid Interpretation Code 40 - 150 U/L [facility] Anion gap 15 mmol/L Invalid Interpretation Code 10 - 20 mmol/L [facility] Aspartate aminotransferase (AST) 13 U/L Invalid Interpretation Code 0 - 45 U/L [facility] Bicarbonate (HCO3) 23 mmol/L Invalid Interpretation Code 21 - 32 mmol/L [facility] Bilirubin (total) 0.2 mg/dL Invalid Interpretation Code 0 - 1.3 mg/dL [facility] BUN/Creatinine Ratio 9.4 mg/mg Low 10.0 - 20.0 [facility] Calcium 8.4 mg/dL Invalid Interpretation Code 8.4 - 10.2 mg/dL [facility] Chloride 108 mmol/L Invalid Interpretation Code 98 - 108 mmol/L [facility] Creatinine 0.64 mg/dL Invalid Interpretation Code 0.4 - 1.1 mg/dL [facility] eGFR (non-black) The eGFR should be u sed for monitoring renal function only and not for medication dosing. Invalid Interpretation Code [facility] eGFR (non-black) 107 mL/min/{1.73_m2} Invalid Interpretation Code >=60 [facility] Glucose 91 mg/dL Invalid Interpretation Code 65 - 99 mg/dL [facility] Potassium 4.0 mmol/L Invalid Interpretation Code 3.5 - 5.1 mmol/L [facility] Protein 5.3 g/dL Low 6 - 8 g/dL [facility] Sodium 142 mmol/L Invalid Interpretation Code 135 - 145 mmol/L [facility] Urea nitrogen 6 mg/dL Low 8 - 25 mg/dL [facility] Lipaseon 05-15-2017 Interpretation and review of laboratory results Normal Invalid Interpretation Code [facility] Lipase 31 U/L Invalid Interpretation Code 15 - 65 U/L [facility] Lipid Panelon 05-15-2017 Cholesterol 193 mg/dL Invalid Interpretation Code 100 - 199 mg/dL [facility] Cholesterol to HDL Ratio 7.1 {ratio} Invalid Interpretation Code [facility] HDL Cholesterol 27 mg/dL Low 40 - 59 mg/dL [facility] HDL Cholesterol 166 mg/dL Invalid Interpretation Code [facility] Interpretation and review of laboratory results Abnormal Invalid Interpretation Code [facility] LDL Cholesterol 108 mg/dL Invalid Interpretation Code 10 - 130 mg/dL [facility] Triglyceride 291 mg/dL High 30 - 150 mg/dL [facility] BMPon 05-14-2017 Anion gap 18 mmol/L Invalid Interpretation Code 10 - 20 mmol/L [facility] Bicarbonate (HCO3) 25 mmol/L Invalid Interpretation Code 21 - 32 mmol/L [facility] BUN/Creatinine Ratio 11.8 mg/mg Invalid Interpretation Code 10.0 - 20.0 [facility] Calcium 10.7 mg/dL High 8.4 - 10.2 mg/dL [facility] Chloride 102 mmol/L Invalid Interpretation Code 98 - 108 mmol/L [facility] Creatinine 0.68 mg/dL Invalid Interpretation Code 0.4 - 1.1 mg/dL [facility] eGFR (non-black) The eGFR should be u sed for monitoring renal function only and not for medication dosing. Invalid Interpretation Code [facility] eGFR (non-black) 105 mL/min/{1.73_m2} Invalid Interpretation Code >=60 [facility] Glucose 86 mg/dL Invalid Interpretation Code 65 - 99 mg/dL [facility] Potassium 4.0 mmol/L Invalid Interpretation Code 3.5 - 5.1 mmol/L [facility] Sodium 141 mmol/L Invalid Interpretation Code 135 - 145 mmol/L [facility] Urea nitrogen 8 mg/dL Invalid Interpretation Code 8 - 25 mg/dL [facility] CBC Auto Differentialon 03-0 Basophils 0.09 K/mcL Invalid Interpretation Code 0.00 - 0.30 [facility] Basophils/100 leukocytes 0.8 % Invalid Interpretation Code [facility] Eosinophils 0.08 K/mcL Invalid Interpretation Code 0.00 - 0.50 [facility] Eosinophils/100 leukocytes 0.7 % Invalid Interpretation Code [facility] Erythrocytes (RBC) 0.00 K/mcL Invalid Interpretation Code 0.00 - 0.00 [facility] Erythrocytes (RBC) 4.96 M/mcL Invalid Interpretation Code 4.00 - 5.20 [facility] Hematocrit (HCT) 48.5 % High 36 - 46 % [facility] Hemoglobin (HGB) 16.6 g/dL High 12 - 16 g/dL [facility] IG Absolute 0.04 K/mcL Invalid Interpretation Code 0.00 - 0.30 [facility] IG Percent 0.40 % Invalid Interpretation Code [facility] Interpretation and review of laboratory results Abnormal Invalid Interpretation Code [facility] Lymphocytes 1.89 K/mcL Invalid Interpretation Code 0.90 - 4.00 [facility] Lymphocytes/100 leukocytes 17.7 % Invalid Interpretation Code [facility] MCH 33.5 pg Invalid Interpretation Code 26 - 34 pg [facility] MCHC 34.2 g/dL Invalid Interpretation Code 31 - 37 g/dL [facility] MCV 97.8 fL Invalid Interpretation Code 80 - 100 fL [facility] Monocytes 0.74 K/mcL Invalid Interpretation Code 0.30 - 0.90 [facility] Monocytes/100 leukocytes 6.9 % Invalid Interpretation Code [facility] Neutrophils 7.86 K/mcL High 1.70 - 7.00 [facility] Neutrophils/100 leukocytes 73.5 % Invalid Interpretation Code [facility] Nucleated erythrocytes/100 erythrocytes 0.0 % Invalid Interpretation Code [facility] Platelet mean volume (PMV) 9.8 fL Invalid Interpretation Code 9 - 15.5 fL [facility] Platelets 275 K/mcL Invalid Interpretation Code 150 - 400 [facility] RDW-CA 12.8 % Invalid Interpretation Code 11.6 - 14.8 % [facility] WBC (Leukocytes) 10.70 K/mcL Invalid Interpretation Code 4.50 - 11.00 [facility] CBC w/ Diffon 05-14-2017 Creatinine The following orders were created for panel order CBC w/ Diff. Procedure Abnormality Status --------- ------ CBC Auto Differential[[id number]] Abnormal Final result Please view results for these tests on the individual orders. Invalid Interpretation Code [facility] CT ABDOMEN PELVIS WITH IV [...] appendix in the left lower pelvis.Workstation ID: [id number] by: ERROL ANN on ThuMay 14, 2017 4:08:10 PM ESTTranscribed by: SETHERROL Espinal on ThuMay 14, 2017 4:08:10 PM ESTFinalized by: ERROL ANN on ThuMay 14, 2017 4:08:10 PM EST Normal [facility] Comment on above: Order Comment: Reaso [...] at L1-L2 and L4-L5. Invalid Interpretation Code [employer] [facility] CT Abdomen Pelvis With IV Contrast Only Interface, Rad In [employer] Speech[employer] - 05/14/2017 4:10 PM EST EXAMINATION: [...] in the left lower pelvis. Workstation ID: [id number] Invalid Interpretation Code [employer] [facility] CT Abdomen Pelvis With IV Contrast [...] in the left lower pelvis. Workstation ID: [id number] Invalid Interpretation Code [employer] [facility] Ruff Topon 05-14-2017 Extra Tube Hold for add-ons. Invalid Interpretation Code [facility] Hepatic Function Panel (LFT) on 05-14-2017 Alanine aminotransferase (ALT) 13 U/L Invalid Interpretation Code 0 - 40 U/L [facility] Albumin 4.8 g/dL Invalid Interpretation Code 3.2 - 5.2 g/dL [facility] Alkaline phosphatase (ALP) 102 U/L Invalid Interpretation Code 40 - 150 U/L [facility] Aspartate aminotransferase (AST) 20 U/L Invalid Interpretation Code 0 - 45 U/L [facility] Bilirubin (conjugated) mg/dL Invalid Interpretation Code 0 - 0.4 mg/dL [facility] Bilirubin (total) 0.2 mg/dL Invalid Interpretation Code 0 - 1.3 mg/dL [facility] Interpretation and review of laboratory results Normal Invalid Interpretation Code [facility] Protein 7.9 g/dL Invalid Interpretation Code 6 - 8 g/dL [facility] Lipaseon 05-14-2017 Lipase 137 U/L High 15 - 65 U/L [facility] [place] 05-14-2017 [place] Invalid Interpretation Code [facility] [place] Drawon 05-14-2017 Creatinine The following orders were created for panel order [place] Draw. Procedure Abnormality Status --------- ------ Gold Top[[id number]] Final result Light Blue Top[[id number]] Final result Ruff Top[[id number]] Final result [place][[id number]] Final result Please view results for these tests on the individual orders. Invalid Interpretation Code [facility] Urinalysison 05-14-2017 Bilirubin, Urine Negative Invalid Interpretation Code Negative [facility] Blood, Urine Negative Invalid Interpretation Code Negative [facility] Interpretation and review of laboratory results Abnormal Invalid Interpretation Code [facility] Mucus, Urine Rare Invalid Interpretation Code None Seen, Rare /lpf [facility] Nitrite, Urine Negative Invalid Interpretation Code Negative [facility] RBCs, Urine 2 /hpf Invalid Interpretation Code 0 - 3 [facility] Squamous Epithelial 3 /hpf Invalid Interpretation Code 0 - 4 [facility] Urine, bacteria in sediment Rare Abnormal None Seen /hpf [facility] Urine, clarity Clear Invalid Interpretation Code Clear [facility] Urine, color Yellow Invalid Interpretation Code Colorless, Yellow [facility] Urine, glucose presence Negative Invalid Interpretation Code Negative mg/dL [facility] Urine, ketones presence Negative Invalid Interpretation Code Negative mg/dL [facility] Urine, leukocyte esterase presence Negative Invalid Interpretation Code Negative [facility] Urine, pH 5.0 [pH] Invalid Interpretation Code 5.0 - 7.0 [facility] Urine, protein Negative Invalid Interpretation Code Negative mg/dL [facility] Urine, specific gravity 1.006 1 Invalid Interpretation Code 1.005 - 1.025 [facility] Urine, urobilinogen <2.0 Invalid Interpretation Code <2.0 mg/dL [facility] WBCs, Urine 1 /hpf Invalid Interpretation Code 0 - 5 [facility] Urinalysis Microscopic examinat ion is performed on all urinalysis samples and only positive findings are reported. The test for blood on the chemical analytic portion of urinalysis may also be positive due to hemoglobinuria and myoglobinuria and if red blood cells are present they are quantified by microscopic examination. Invalid Interpretation Code [facility] Vital Signs Date Time Vital Sign Value Performing Clinician Facility 09-08-2023 09:00-0400 Diastolic blood pressure 54 mm[Hg] Sabrina Dee MD, MPH Work Phone: [facility] 09-08-2023 09:00-0400 Heart rate 83 /min Sabrina Dee MD, MPH Work Phone: [facility] 09-08-2023 09:00-0400 Respiratory rate 13 /min Sabrina Dee MD, MPH Work Phone: [facility] 09-08-2023 09:00-0400 SaO2% (BldA) [Mass fraction] 95 % Sabrina Dee MD, MPH Work Phone: [facility] 09-08-2023 09:00-0400 Systolic blood pressure 94 mm[Hg] Sabrina Dee MD, MPH Work Phone: [facility] 09-08-2023 08:04-0400 Body temperature 97.7 [degF] Sabrina Dee MD, MPH Work Phone: [facility] 09-08-2023 06:43-0400 Body height 157.5 cm Sabrina Dee MD, MPH Work Phone: [facility] 05-11-2023 09:01-0500 Body height 157.5 cm Sabrina Dee MD, MPH Work Phone: [facility] 05-11-2023 09:01-0500 Body mass index (BMI) [Ratio] 21 kg/m2 Sabrina Dee MD, MPH Work Phone: [facility] 05-11-2023 09:01-0500 Body weight 52.07 kg Sabrina Dee MD, MPH Work Phone: [facility] 05-11-2023 09:01-0500 Diastolic blood pressure 48 mm[Hg] Sabrina Dee MD, MPH Work Phone: [facility] 05-11-2023 09:01-0500 Heart rate 107 /min Sabrina Dee MD, MPH Work Phone: [facility] 05-11-2023 09:01-0500 SaO2% (BldA) [Mass fraction] 97 % Sabrina Dee MD, MPH Work Phone: [facility] 05-11-2023 09:01-0500 Systolic blood pressure 110 mm[Hg] Sabrina Dee MD, MPH Work Phone: [facility] 04-18-2023 17:39-0500 Diastolic blood pressure 79 mm[Hg] [facility] 04-18-2023 17:39-0500 Heart rate 114 /min [facility] 04-18-2023 17:39-0500 Respiratory rate 16 /min [facility] 04-18-2023 17:39-0500 SaO2% (BldA) [Mass fraction] 98 % [facility] 04-18-2023 17:39-0500 Systolic blood pressure 168 mm[Hg] [facility] 04-18-2023 15:29-0500 Body height 157.48 cm [facility] 04-18-2023 15:29-0500 Body temperature 99.3 [degF] [facility] 04-18-2023 15:29-0500 Body weight 51.25 kg [facility] 04-11-2023 23:50-0500 Diastolic blood pressure 82 mm[Hg] [facility] 04-11-2023 23:50-0500 Heart rate 106 /min [facility] 04-11-2023 23:50-0500 SaO2% (BldA) [Mass fraction] 97 % [facility] 04-11-2023 23:50-0500 Systolic blood pressure 151 mm[Hg] [facility] 04-11-2023 22:25-0500 Respiratory rate 18 /min [facility] 04-11-2023 21:20-0500 Body height 157.48 cm [facility] 04-11-2023 21:20-0500 Body temperature 97.2 [degF] [facility] 04-11-2023 21:20-0500 Body weight 52 kg [facility] 04-02-2023 19:20-0500 Diastolic blood pressure 74 mm[Hg] [facility] 04-02-2023 19:20-0500 Heart rate 91 /min [facility] 04-02-2023 19:20-0500 Respiratory rate 18 /min [facility] 04-02-2023 19:20-0500 SaO2% (BldA) [Mass fraction] 96 % [facility] 04-02-2023 19:20-0500 Systolic blood pressure 137 mm[Hg] [facility] 04-02-2023 13:45-0500 Body height 157.48 cm [facility] 04-02-2023 13:45-0500 Body temperature 97.6 [degF] [facility] 04-02-2023 13:45-0500 Body weight 54 kg [facility] 11-09-2022 16:30-0400 Diastolic blood pressure 81 mm[Hg] [facility] 11-09-2022 16:30-0400 Heart rate 78 /min [facility] 11-09-2022 16:30-0400 Respiratory rate 18 /min [facility] 11-09-2022 16:30-0400 SaO2% (BldA) [Mass fraction] 99 % [facility] 11-09-2022 16:30-0400 Systolic blood pressure 141 mm[Hg] [facility] 11-09-2022 13:47-0400 Body height 160.02 cm [facility] 11-09-2022 13:47-0400 Body temperature 98.2 [degF] [facility] 11-09-2022 13:47-0400 Body weight 54.2 kg [facility] 08-12-2022 13:15-0400 Diastolic blood pressure 68 mm[Hg] Sabrina Dee MD, MPH Work Phone: [facility] 08-12-2022 13:15-0400 Heart rate 67 /min Sabrina Dee MD, MPH Work Phone: [facility] 08-12-2022 13:15-0400 Respiratory rate 22 /min Sabrina Dee MD, MPH Work Phone: [facility] 08-12-2022 13:15-0400 SaO2% (BldA) [Mass fraction] 99 % Sabrina Dee MD, MPH Work Phone: [facility] 08-12-2022 13:15-0400 Systolic blood pressure 142 mm[Hg] Sabrina Dee MD, MPH Work Phone: [facility] 08-12-2022 11:45-0400 Body temperature 97.81 [degF] Sabrina Dee MD, MPH Work Phone: [facility] 08-12-2022 10:34-0400 Body height 157.5 cm Sabrina Dee MD, MPH Work Phone: [facility] 06-16-2022 10:52-0400 Body mass index (BMI) [Ratio] 23.41 kg/m2 Sabrina Dee MD, MPH Work Phone: [facility] 06-16-2022 10:52-0400 Body weight 58.06 kg Sabrina Dee MD, MPH Work Phone: [facility] 06-16-2022 10:52-0400 Diastolic blood pressure 68 mm[Hg] Sabrina Dee MD, MPH Work Phone: [facility] 06-16-2022 10:52-0400 Heart rate 83 /min Sabrina Dee MD, MPH Work Phone: [facility] 06-16-2022 10:52-0400 SaO2% (BldA) [Mass fraction] 98 % Sabrina Dee MD, MPH Work Phone: [facility] 06-16-2022 10:52-0400 Systolic blood pressure 122 mm[Hg] Sabrina Dee MD, MPH Work Phone: [facility] 03-22-2022 16:51-0500 Diastolic blood pressure 61 mm[Hg] [facility] 03-22-2022 16:51-0500 Heart rate 98 /min [facility] 03-22-2022 16:51-0500 Respiratory rate 20 /min [facility] 03-22-2022 16:51-0500 SaO2% (BldA) [Mass fraction] 98 % [facility] 03-22-2022 16:51-0500 Systolic blood pressure 149 mm[Hg] [facility] 03-22-2022 14:59-0500 Body height 157.48 cm [facility] 03-22-2022 14:59-0500 Body temperature 97.9 [degF] [facility] 03-22-2022 14:59-0500 Body weight 56 kg [facility] 12-16-2021 11:53-0400 Body height 157.5 cm Sabrina Dee MD, MPH Work Phone: [facility] 12-16-2021 11:53-0400 Body mass index (BMI) [Ratio] 22.5 kg/m2 Sabrina Dee MD, MPH Work Phone: [facility] 12-16-2021 11:53-0400 Body weight 55.79 kg Sabrina Dee MD, MPH Work Phone: [facility] 12-16-2021 11:53-0400 Diastolic blood pressure 72 mm[Hg] Sabrina Dee MD, MPH Work Phone: [facility] 12-16-2021 11:53-0400 Heart rate 80 /min Sabrina Dee MD, MPH Work Phone: [facility] 12-16-2021 11:53-0400 SaO2% (BldA) [Mass fraction] 98 % Sabrina Dee MD, MPH Work Phone: [facility] [facility] 12-16-2021 11:53-0400 Systolic blood pressure 118 mm[Hg] Sabrina Dee MD, MPH Work Phone: [facility] 10-09-2021 20:00-0400 Body temperature 98.3 [degF] [facility] 10-09-2021 20:00-0400 Diastolic blood pressure 68 mm[Hg] [facility] 10-09-2021 20:00-0400 Heart rate 86 /min [facility] 10-09-2021 20:00-0400 Respiratory rate 20 /min [facility] 10-09-2021 20:00-0400 SaO2% (BldA) [Mass fraction] 100 % [facility] 10-09-2021 20:00-0400 Systolic blood pressure 110 mm[Hg] [facility] 10-09-2021 14:19-0400 Body height 157.48 cm [facility] 10-09-2021 14:19-0400 Body weight 56.69 kg [facility] 10-04-2021 19:00-0400 Diastolic blood pressure 66 mm[Hg] [facility] 10-04-2021 19:00-0400 Heart rate 72 /min [facility] 10-04-2021 19:00-0400 Respiratory rate 16 /min [facility] 10-04-2021 19:00-0400 SaO2% (BldA) [Mass fraction] 96 % [facility] 10-04-2021 19:00-0400 Systolic blood pressure 110 mm[Hg] [facility] 10-04-2021 15:16-0400 Body temperature 97.9 [degF] [facility] 10-04-2021 15:15-0400 Body height 157.48 cm [facility] 10-04-2021 15:15-0400 Body weight 54.5 kg [facility] 09-25-2021 19:58-0400 Heart rate 82 /min [facility] 09-25-2021 18:04-0400 Body temperature 98.1 [degF] [facility] 09-25-2021 18:00-0400 Body height 157.48 cm [facility] 09-25-2021 18:00-0400 Body weight 55.5 kg [facility] 09-25-2021 18:00-0400 Diastolic blood pressure 107 mm[Hg] [facility] 09-25-2021 18:00-0400 Respiratory rate 18 /min [facility] 09-25-2021 18:00-0400 SaO2% (BldA) [Mass fraction] 98 % [facility] 09-25-2021 18:00-0400 Systolic blood pressure 141 mm[Hg] [facility] 08-11-2021 18:12-0400 Heart rate 86 /min [facility] 08-11-2021 18:00-0400 Diastolic blood pressure 69 mm[Hg] [facility] 08-11-2021 18:00-0400 Respiratory rate 20 /min [facility] 08-11-2021 18:00-0400 SaO2% (BldA) [Mass fraction] 98 % [facility] 08-11-2021 18:00-0400 Systolic blood pressure 114 mm[Hg] [facility] 08-11-2021 16:06-0400 Body height 170.18 cm [facility] 08-11-2021 16:06-0400 Body mass index (BMI) [Ratio] 19.6 kg/m2 [facility] 08-11-2021 16:06-0400 Body temperature 97.9 [degF] [facility] 08-11-2021 16:06-0400 Body weight 57 kg [facility] 03-19-2021 14:30-0500 Body height 157.48 cm Marya Ginty Other [facility] Other 03-19-2021 14:30-0500 Body mass index (BMI) [Ratio] 24.69 kg/m2 Marya Ginty Other [facility] Other 03-19-2021 14:30-0500 Body temperature 96 [degF] Marya Ginty Other [employer] Other 03-19-2021 14:30-0500 Body weight 61.24 kg Marya Ginty Other [employer] Other 03-19-2021 14:30-0500 Respiratory rate 63 /min Marya Ginty Other [employer] Other 03-19-2021 14:30-0500 SaO2% (BldA) [Mass fraction] 97 % Marya Gillana Other [employer] Other 03-26-2020 21:05-0500 Pulse Oximetry 100 % [facility] [place] [place] 03-26-2020 21:01-0500 BP Diastolic 68 mm[Hg] [facility] , [place] 03-26-2020 21:01-0500 BP Systolic 152 mm[Hg] [facility] [place] [place] 03-26-2020 17:32-0500 BMI (Body Mass Index) 22.86 kg/m2 [facility], [place] 03-26-2020 17:32-0500 Body weight 56.7 kg [place], [place] 03-26-2020 17:32-0500 Height 157.5 cm [place] 03-26-2020 17:32-0500 Pulse (Heart Rate) 90 /min [facility] [place] 03-26-2020 17:32-0500 Respiratory Rate 18 /min [facility] [place] 03-26-2020 12:39-0500 Body Temperature 98.71 [degF] [facility] [place] 08-25-2019 08:30-0400 Body Temperature 98.01 [degF] [facility] [place] 08-25-2019 08:30-0400 BP Diastolic 75 mm[Hg] [facility]ev [facility] [place] [place] 08-25-2019 08:30-0400 BP Systolic 117 mm[Hg] [facility] [place] [place] 08-25-2019 08:30-0400 Pulse (Heart Rate) 84 /min [facility] [place] 08-25-2019 08:30-0400 Pulse Oximetry 97 % [facility] [place] [place] 08-25-2019 08:30-0400 Respiratory Rate 16 /min [facility] [place] 08-25-2019 05:30-0400 BMI (Body Mass Index) 25.88 kg/m2 Rajeev [facility], [place] 08-25-2019 05:30-0400 Body weight 64.18 kg Rajeev [place] 08-22-2019 16:00-0400 Height 157.5 cm Raje[place] 03-04-2018 13:09-0500 BP Diastolic 69 mm[Hg] [facility] 03-04-2018 13:09-0500 BP Systolic 108 mm[Hg] [facility] 03-04-2018 13:09-0500 Pulse (Heart Rate) 79 /min [facility] 03-04-2018 13:09-0500 Pulse Oximetry 99 % [facility] 03-04-2018 13:09-0500 Respiratory Rate 16 /min [facility] 03-04-2018 11:01-0500 BMI (Body Mass Index) 22.86 kg/m2 [facility] 03-04-2018 11:01-0500 Body Temperature 98.6 [degF] [facility] 03-04-2018 11:01-0500 Height 157.5 cm [facility] 03-04-2018 11:01-0500 Weight 56.7 kg [facility] 08-24-2017 20:58-0400 BP Diastolic 64 mm[Hg] [facility] 08-24-2017 20:58-0400 BP Systolic 126 mm[Hg] [facility] 08-24-2017 20:58-0400 Pulse (Heart Rate) 67 /min [facility] 08-24-2017 20:58-0400 Pulse Oximetry 98 % [facility] 08-24-2017 20:58-0400 Respiratory Rate 18 /min [facility] 08-24-2017 13:41-0400 BMI (Body Mass Index) 21.58 kg/m2 [facility] 08-24-2017 13:41-0400 Body Temperature 98.29 [degF] [facility] 08-24-2017 13:41-0400 Height 157.5 cm [facility] 08-24-2017 13:41-0400 Weight 53.52 kg [facility] 06-09-2017 09:32-0400 BP Diastolic 73 mm[Hg] [facility] 06-09-2017 09:32-0400 BP Systolic 106 mm[Hg] [facility] 06-09-2017 09:32-0400 Pulse (Heart Rate) 86 /min [facility] 06-09-2017 09:32-0400 Pulse Oximetry 99 % [facility] 06-09-2017 09:32-0400 Respiratory Rate 16 /min [facility] 06-09-2017 07:20-0400 BMI (Body Mass Index) 21.87 kg/m2 [facility] 06-09-2017 07:20-0400 Body Temperature 98.4 [degF] [facility] 06-09-2017 07:20-0400 Height 157.5 cm [facility] 06-09-2017 07:20-0400 Weight 54.23 kg [facility] 05-15-2017 08:11-0500 Body Temperature 98.01 [degF] David Gibson [facility] 05-15-2017 08:11-0500 BP Diastolic 69 mm[Hg] David Paige [facility] 05-15-2017 08:11-0500 BP Systolic 116 mm[Hg] David [facility] 05-15-2017 08:11-0500 Pulse (Heart Rate) 76 /min David Paige [facility] 05-15-2017 08:11-0500 Pulse Oximetry 95 % David Paige [facility] 05-15-2017 08:11-0500 Respiratory Rate 15 /min David Paige [facility] 05-14-2017 12:58-0500 BMI (Body Mass Index) 21.95 kg/m2 David Pa[facility] 05-14-2017 12:58-0500 Height 157.5 cm David Pa[facility] 05-14-2017 12:58-0500 Weight 54.43 kg David Gibson [facility] Encounters Encounter Date Encounter Type Care Provider Facility Start: 09-29-2023 End: 09-29-2023 Emergency department patient visit [facility] Start: 09-08-2023 End: 09-08-2023 Subsequent hospital visit by physician Sabrina Dee MD, MPH Work Phone: [facility] Start: 09-08-2023 ambulatory SABRINA DEE Fa cility:[facility] Start: 05-22-2023 Telephone encounter [facility] Start: 05-11-2023 Chart abstracting Scanning Pro vider External [facility] Start: 05-11-2023 End: 05-11-2023 Office outpatient visit 40 minutes Sabrina Dee MD, MPH Work Phone: [facility] [place] Comment on above: Alcohol-induced rivet bucker amish pancreatitis (Primary Dx); Encounter for screening for malignant neoplasm of colon; Other osteoporosis without current pathological fracture; Epigastric pain; Smoking; Gastroesophageal reflux disease without esophagitis Start: 05-11-2023 ambulatory SELF SELF Facility:[facility] Start: 04-18-2023 End: 04-18-2023 Emergency department patient visit [facility] Work Phone: Start: 04-16-2023 Telephone encounter [facility] Start: 04-11-2023 End: 04-12-2023 Emergency department patient visit [facility] Work Phone: Start: 04-11-2023 End: 04-11-2023 Emergency department patient visit [facility] Start: 04-11-2023 End: 04-12-2023 Emergency department patient visit TABITHA NEWELL [facility] Start: 04-02-2023 End: 04-02-2023 Emergency department patient visit [facility] Work Phone: Start: 03-27-2023 End: 03-28-2023 Emergency department patient visit VIC BIRMINGHAM [facility] Start: 03-27-2023 End: 03-27-2023 Emergency department patient visit [facility] Start: 11-09-2022 End: 11-09-2022 Emergency department patient visit [facility] Work Phone: Start: 08-12-2022 End: 08-12-2022 Subsequent hospital visit by physician Sabrina Dee MD, MPH Work Phone: [facility] Start: 06-16-2022 End: 06-16-2022 Office outpatient visit 40 minutes Sabrina Dee MD, MPH Work Phone: [facility] [place] Comment on above: Osteoporosis without current pathological fracture, unspecified osteoporosis type (Primary Dx); Alcohol-induced chronic pancreatitis Start: 06-13-2022 End: 06-13-2022 ambulatory ARIC ARCINIEGA . Facility:[facility] Start: 03-29-2022 End: 03-29-2022 ambulatory ELENITA DIAB . Facility:[facility] Start: 03-22-2022 End: 03-22-2022 Emergency department patient visit [facility] Work Phone: Start: 03-19-2022 End: 03-19-2022 ambulatory MONIK PARKINSON . Facility:[facility] Start: 01-28-2022 End: 01-28-2022 Subsequent hospital visit by physician Sabrina Dee MD, MPH Work Phone: [facility] Start: 01-27-2022 End: 01-27-2022 Subsequent hospital visit by physician Sabrina Dee MD, MPH Work Phone: [facility] Comment on above: Arrived Start: 01-15-2022 End: 01-15-[address] HELLEN KITCHEN . Facility:[facility] Start: 12-16-2021 End: 12-16-2021 Office outpatient visit 25 minutes Sabrina Dee MD, MPH Work Phone: [facility] [place] Comment on above: Recurrent acute panc reatitis (Primary Dx); History of smoking 25-50 pack years; Alcohol-induced chronic pancreatitis; Epigastric pain; Encounter for screening colonoscopy Start: 12-13-2021 End: 12-14-2021 ambulatory NICK COY Facility:[facility] Start: 12-05-2021 End: 12-05-[address] RAJEEV KELLOGG Facility:[facility] Start: 10-11-2021 End: 10-12-[address] RAJEEV KELLOGG Facility:[facility] Start: 10-04-2021 End: 10-04-2021 Emergency department patient visit [facility] Start: 09-30-2021 End: 09-30-2021 ambulatory NAT MAXWELL . Facility:[facility] Start: 09-25-2021 End: 09-25-2021 Emergency department patient visit [facility] Start: 09-17-2021 End: 09-17-[address] RAJEEV KELLOGG Facility:[facility] Start: 08-26-2021 End: 08-26-2021 ambulatory NICK COY Facility:[facility] Start: 08-22-2021 End: 08-22-[address] TRI HANSON Facility:[facility] Start: 08-13-2021 End: 08-13-2021 ambulatory AGUSTIN MADRIGAL Facility:[facility] Start: 08-11-2021 End: 08-11-2021 Emergency department patient visit [facility] Start: 07-31-2021 End: 07-31-2021 ambulatory YANNI FRASER Facility:[facility] Start: 07-19-2021 End: 07-19-2021 ambulatory LYNNE PERDOMO Facility:[facility] Start: 03-19-2021 End: 03-19-2021 ambulatory Marya Escotoy Other [employer] Other Start: 03-19-2021 Office outpatient visit 15 minutes Marya Almonte [facility] Start: 05-22-2020 End: 05-22-2020 Orders Only Izabela Grant Work Phone: [facility] Start: 03-26-2020 End: 03-26-2020 Emergency department patient visit [facility] ED Comment on above: Acute biliary pancre atitis, unspecified complication status (Primary Dx) Start: 08-22-2019 End: 08-25-2019 Evaluation and management of inpatient Rajeev Rudy Cantor Work Phone: [facility] Comment on above: Acute pancreatitis, unspecified complication status, unspecified pancreatitis type (Primary Dx); Pain of upper abdomen Start: 03-08-2018 End: 03-09-2018 Evaluation and management of inpatient [facility] Start: 03-04-2018 End: 03-04-2018 Patient encounter procedure [facility] Start: 03-04-2018 End: 03-04-2018 Emergency department patient visit Keerthi Nguyen Work Phone: [phone] [place] [address] Emergency Department Comment on above: Acute on chronic see creatitis (HCC) (Primary Dx) Start: 08-24-2017 End: 08-24-2017 Emergency department patient visit [facility] Start: 08-24-2017 End: 08-24-2017 Emergency department patient visit Errol Walton Work Phone: [phone] [place] [address] Emergency Department Start: 06-09-2017 End: 06-09-2017 Emergency department patient visit [facility] Start: 06-09-2017 End: 06-09-2017 Emergency department patient visit Joana Mohsen Rosalesle Work Phone: [phone] [place] [address] Emergency Department Start: 05-14-2017 End: 05-15-2017 Patient encounter procedure [facility] Start: 05-14-2017 End: 05-15-2017 Emergency department patient visit David Gibson Work Phone: [phone] [place] [address] Medical Observation Procedures Date Procedure Procedure Detail [...] Visit [facility] [address] [place], [place] [id number] Sabrina Dee MD, MPH [address] [place] [id number] [facility] [place] Start: 11-08-2023 Influenza vaccination INFLUENZA VACCINE (#1) [facility] Start: 05-25-2023 End: 05-25-2023 Patient encounter procedure 05/25/2023 1:00 PM EDT Office Visit [facility] [address] [place] [address] Orlando Al MD [address] [place] [address] [facility] Start: 05-19-2023 End: 05-10-2024 UPPER EUS UPPER EUS GI/Bronch Routine Alcohol-induced chronic pancreatitis Expected: 05/19/2023, Expires: 05/10/2024 [facility] Comment on above: Expected: 05/19/2023, Expires: Start: 05-11-2023 End: 05-10-2024 VITAMIN D (25-HYDROXY,TOTAL) VITAMIN D (25-HYDROXY,TOTAL) Lab Routine Other osteoporosis without current pathological fracture Expected: 05/11/2023, Expires: 05/10/2024 [facility] Comment on above: Expected: 05/11/2023, Expires: 5 Start: 04-11-2023 Computed tomography of abdomen and pelvis with contrast CT abdomen pelvis w con [facility] Start: 04-11-2023 CT Abdomen and Pelvis W contrast IV [facility] Start: 03-16-2023 End: 03-16-2023 Patient encounter procedure 03/16/2023 Office Visit Gastroenterology Sabrina Dee MD, MPH [address] [place] [address] [facility] [place] Start: 11-07-2022 COVID-19 Vaccine ( season) COVID-19 Vaccine ( season) [facility] Start: 11-07-2022 Influenza vaccination [facility] Start: 09-25-2022 Lipid panel LIPID SCREENING [facility] Start: 07-29-2022 End: 06-17-2023 UPPER EUS UPPER EUS GI/Bronch Routine Alcohol-induced chronic pancreatitis Expected: 07/29/2022, Expires: 06/17/2023 [facility] Comment on above: Expected: 07/29/2022, Expires: 4 Start: 07-28-2022 End: 01-28-2023 Screening colonoscopy SCREENING COLONOSCOPY GI/Bronch Routine Encounter for screening colonoscopy Expected: 07/28/2022, Expires: 01/28/2023 [facility] Comment on above: Expected: 07/28/2022, Expires: 3 Start: 07-28-2022 End: 07-28-2022 Patient encounter procedure 07/28/2022 Appointment Endoscopy Julia Tyler MD [address] [address] [facility] Start: 06-16-2022 End: 12-16-2022 Screening colonoscopy SCREENING COLONOSCOPY GI/Bronch Routine Encounter for screening colonoscopy Expected: 06/16/2022, Expires: 12/16/2022 [facility] Comment on above: Expected: 06/16/2022, Expires: 3 Start: 06-16-2022 End: 06-16-2022 Patient encounter procedure 06/16/2022 Office Visit Gastroenterology Sabrina Dee MD, MPH [address] [place] [address] [facility] [place] Start: 03-22-2022 Bacteria identified in Urine by Culture [facility] Start: 01-28-2022 End: 01-28-2022 Patient encounter procedure 01/28/2022 Appointment Endoscopy Sabrina Dee MD, MPH [address] [place] [address] [facility] Start: 01-28-2022 Subsequent hospital visit by physician 01/28/2022 Hospital Encounter Endoscopy Sabrina Dee MD, MPH [address] [place] [address] Arrived [facility] Comment on above: Arrived Start: 01-14-2022 End: 12-16-2022 UPPER EUS UPPER EUS GI/Bronch Routine Recurrent acute pancreatitis Expected: 01/14/2022, Expires: 12/16/2022 [facility] Comment on above: Expected: 01/14/2022, Expires: 3 Start: 12-16-2021 End: 12-16-2022 Bone density scan BONE DENSITY AXIAL (HIP, PELVIS, SPINE) Imaging Routine Recurrent acute pancreatitis History of smoking 25-50 pack years Expected: 12/16/2021, Expires: 12/16/2022 [facility] Comment on above: Expected: 12/16/2021, Expires: 3 Start: 11-07-2021 Influenza vaccination INFLUENZA VACCINE (#1) [facility] Start: 10-09-2021 CT of abdomen and pelvis without contrast CT abdomen pelvis wo con [facility] Start: 10-09-2021 End: 10-09-2021 Emergency department patient visit Departed Emergency [facility] Start: 11-13-2020 COVID-19 VACCINE (3 - Booster for Pfizer series) COVID-19 VACCINE (3 - Booster for Pfizer series) [facility] Start: 11-08-2019 Influenza vaccination [place], [place] Start: 11-08-2019 Influenza vaccination given Sequential Influenza Vaccine (#1) [facility] Start: 06-21-2019 Administration of herpes zoster vaccine Zoster Vaccines (1 of 2) [facility] Start: 06-21-2019 Administration of varicella zoster vaccine Zoster (Shingles) Vaccine (1 of 2) [facility] Start: 06-21-2019 Screening for malignant neoplasm of breast Breast cancer screen [place], [place] Start: 06-21-2019 Screening for malignant neoplasm of colon [place], [place] Start: 06-21-2019 Screening for malignant neoplasm of lung LUNG CANCER SCREENING [facility] Start: 06-21-2019 Shingles Vaccine (1 of 2) Shingles Vaccine (1 of 2) [place] Start: 06-21-2019 Zoster vaccine hzv live for subcutaneous use ZOSTER (SHINGLES) VACCINE (1 of 2) [facility] Start: 11-07-2017 Influenza vaccination [facility] Start: 11-07-2016 Influenza vaccination SEQUENTIAL INFLUENZA VACCINE (#1) [facility] Start: 12-10-2014 Screening for malignant neoplasm of cervix [facility] Start: 2014 Screening for malignant neoplasm of colon COLORECTAL CANCER SCREENING DISCUSSION [facility] Start: 01-01-2013 Screening for malignant neoplasm of breast MAMMOGRAM SCREENING DISCUSSION [facility] Start: 01-01-2013 Screening mammography Mammogram [facility] Start: 2009 Lipid panel Lipid screen [place], [place] Start: 1990 Screening for malignant neoplasm of cervix [facility] Start: 1988 DTaP,Tdap and Td Vaccines (1 - Tdap) DTaP,Tdap and Td Vaccines (1 - Tdap) [facility] Start: 1988 DTaP/Tdap/Td vaccine (1 - Tdap) DTaP/Tdap/Td vaccine (1 - Tdap) [place], [place] Start: 1988 Hepatitis B vaccination HEP B VACCINE (1 of 3 - 19+ 3-dose series) [facility] Start: 1988 Third diphtheria, tetanus and acellular pertussis (DTaP) vaccination TDAP (ADULT) [facility] Start: 06-21-1987 Hepatitis C antibody, confirmatory test Hepatitis C Screening [facility] Start: 06-21-1987 Tetanus vaccination TETANUS [facility] Start: 1985 COVID-19 Vaccine (1 of 2) COVID-19 Vaccine (1 of 2) [facility] Start: 1984 HIV screening [facility] Start: 1981 Depression Screening Depression Screening [facility] Start: 06-21-1975 Pneumococcal 0-64 years Vaccine (1 of 1 - PPSV23) Pneumococcal 0-64 years Vaccine (1 of 1 - PPSV23) [place] Start: 06-21-1975 PNEUMOCOCCAL VACCINE SERIES (1 - PCV) PNEUMOCOCCAL VACCINE SERIES (1 - PCV) [facility] Start: 06-21-1975 PNEUMOCOCCAL VACCINE SERIES (1 of 2 - PCV) PNEUMOCOCCAL VACCINE SERIES (1 of 2 - PCV) [facility] Start: 1972 History and physical examination, annual for health maintenance Wellness Visit [facility] Start: 1969 Hepatitis B vaccination HEP B VACCINE (1 of 3 - 3-dose series) [facility] Start: 1969 Hepatitis C screening [facility] Start: 1969 Tetanus vaccination [facility] Start: 1969 Tobacco Counseling Tobacco Counseling [facility] CBC auto differential CBC auto d ifferential Lab Routine Daily until discontinued starting 08/23/2019, 3 completed [facility] Comment on above: Daily until discontinued starting 2019, [address] ABDOMEN PELVIS W IV CONTRAST Additional Contrast? None CT ABDOMEN PELVIS W IV CONTRAST Additional Contrast? None Imaging STAT 03/26/2020 3:01 PM EST [facility] GILBERT IgG Subclasses IgG Subclasses A dd-On 05/14/2017 2:06 PM EST [facility] Initiate Oxygen Therapy Protocol Initiate Oxygen Therapy Protocol Respiratory Care Routine Daily until discontinued starting 08/22/2019 [facility] Comment on above: Daily until discontinued starting 2019 Lipase Lipase Lab Routi ne Daily until discontinued starting 08/23/2019, 3 completed [facility] Comment on above: Daily until discontinued starting 2019, 3 completed Patient Education [facility] Work Phone: Patient referral [facility] Work Phone: End: 08-22-2019 Pulse Oximetry Spot Check Pulse Oximetry Spot Check Respiratory Care Routine One Time for 1 Occurrences starting 08/22/2019 until 08/22/2019 [facility]: One Time for 1 Occurrences starting 08/07 until 08/22/2019 Screening colonoscopy SCREENING COLONOSCOPY GI/Bronch Routine Encounter for screening colonoscopy 01/28/2022 9:43 AM [facility] Screening colonoscopy SCREENING COLONOSCOPY GI/Bronch Routine Encounter for screening for malignant neoplasm of colon Ordered: 05/11/2023 [facility] Comment on above: Ordered: 05/11/2023 Immunizations Immunization Date Immunization Notes Care Provider Fa joy 12-23-2015 influenza, injectabl e, quadrivalent, contains preservative Sabrina Dee MD, MPH Work Phone: [facility] 12-23-2015 influenza virus vaccine, unspecified formulation Sabrina Dee MD, MPH Work Phone: [facility] 12-15-2014 influenza virus vaccine, unspecified formulation Sabrina Dee MD, MPH Work Phone: [facility] Payers Date Payer Category Payer Self-pay [id number] 2022 Medicaid [facility] [employer] [place] MED[place] O [id number] 2022-Present [phone] [address] [place] [address] [id number]. [id number] 2019 Unknown [facility] xxxxxxxxxxx 2019-Present [phone] CLAIMS DEPARTMENT [address] [place] [address] xxxxxxxxxxx [id number]. [id number] 2017 Unknown [id number] 2017 Unknown 1969 Unknown [id number] 2.16.840.1.796459.3.579.2.900 1969 Unknown [id number] 2.16.840.1.519502.3.579.2.900 1969 Unknown [id number] 2.16.840.1.398738.3.579.2.900 1969 Unknown [id number] 2.16.840.1.880950.3.579.2.900 1969 Unknown [id number] 2.16.840.1.297394.3.579.2.900 1969 Unknown [id number] 2.16.840.1.067581.3.579.2.593 1969 Unknown [id number] 2.16.840.1.283182.3.579.2.593 1969 Unknown [id number] 2.16.840.1.204604.3.579.2.593 1969 Unknown [id number] 2.16.840.1.465739.3.579.2.593 1969 Unknown [id number] 2.16.840.1.333972.3.579.2.593 1969 Unknown [id number] 2.16.840.1.382379.3.579.2.593 1969 Unknown [id number] 2.16.840.1.964956.3.579.2.593 1969 Unknown [id number] 2.16.840.1.742804.3.579.2.593 1969 Unknown [id number] 2.16.840.1.372460.3.579.2.593 1969 Unknown [id number] 2.16.840.1.596815.3.579.2.593 1969 Unknown [id number] 2.16.840.1.254866.3.579.2.593 1969 Unknown [id number] 2.16.840.1.155428.3.579.2.593 1969 Unknown [id number] 2.16.840.1.416529.3.579.2.593 1969 Unknown [id number] 2.16.840.1.752885.3.579.2.593 1969 Unknown [id number] 2.16.840.1.771795.3.579.2.1286 1969 Unknown [id number] 2.16.840.1.975131.3.579.2.1285 1969 Unknown [id number] 2.16.840.1.590725.3.579.2.128 1969 Unknown [id number] 2.16.840.1.020827.3.579.2.1285 1969 Unknown [id number] 2.16.840.1.046595.3.579.2.128 1969 Unknown [id number] 2.16.840.1.032872.3.579.2.1285 1969 Unknown [id number] 2.16.840.1.595788.3.579.2.594 1969 Unknown [id number] 2.16.840.1.751858.3.579.2.594 1969 Unknown [id number] 2.16.840.1.192963.3.579.2.173 1959 Medicaid [id number] 1959 Unknown [id number] 1.2.840.161102.1.13.239.2.7.3. 910619.315 Unknown [id number] 2.16.840.1.811829.3.579.2.531 Unknown [id number] 2.16.840.1.909881.3.579.2.531 Unknown [id number] 2.16.840.1.353295.3.579.2.531 Unknown [id number] 2.16.840.1.469545.3.579.2.531 Social History Date Type Detail Facility Start: 06-09-2017 End: 12-16-2021 Tobacco smoking status MNIS Current every day smoker [facility] End: 10-30-2020 History of tobacco use Cigarette Smoker [facility] Start: 06-09-2017 End: 09-08-2023 Cigarettes smoked current (pack per day) - Reported [facility] Start: 1970 Sex Assigned At Not on file [facility] Start: 08-22-2019 End: 09-08-2023 Alcohol intake Current non-drinker of alcohol (finding) [place] Exposure to SARS-CoV -2 (event) Unable to assess [place] Start: 03-08-2018 End: 12-16-2021 Tobacco use and exposure Never used [place] Start: 07-24-2014 Tobacco Comment Smokes < 1/2 p pd, smoker for 30+ years [facility] Start: 07-24-2014 Alcohol Comment Prior heavy dr carrillo, quit 8 years ago [facility] Start: 04-11-2023 End: 09-08-2023 Sex Assigned At [facility] Start: 09-25-2021 End: 04-18-2023 Tobacco smoking status NHIS Smoker (finding) [facility] Start: 1970 Sex Assigned At Female F [facility] Start: 05-09-2016 Alcohol Comment been sober for 9 yea rs [facility] Start: 04-02-2023 Tobacco smoking stat us MNIS Current some day smoker [facility] Start: 06-25-2022 [facility] Start: 04-11-2023 End: 05-11-2023 Alcohol intake Ex-drinker (finding) [facility] Childcare Unknown [facility] Start: 06-25-2022 Alcohol Comment Has not consum ed alcohol in 12 years [facility] Gender identity Identifies as fe male gender (finding) [facility] Clinical Notes 10-08-2019 to 09-08-2023 Sabrina [...] female seen in the pre-procedure area at [facility]. The indication for endoscopic evaluation includes: Alcohol-induced chronic pancreatitis PAST MEDICAL HISTORY: Past Medical History: Diagnosis Date Anemia Depression H. pylori infection Neutrophilic leukocytosis Pancreatitis SURGICAL HISTORY: Past Surgical History: Procedure Laterality Date EGD W/ ULTRASOUND N/A 12/01/2019 Laterality: N/A; Surgeon: Sabrina Dee MD, MPH; Location: [facility] EGD W/ ULTRASOUND N/A 04/23/2016 Laterality: N/A; Surgeon: Pineda Troy MD; Location: [facility] EGD W/ ULTRASOUND N/A [...] 50,000 Units, Oral, WEEKLY Pancreatic enzymes (Creon) 98535-[address] units [address] Particles capsule 72,000 Units, Oral, 2 TIMES DAILY WITH MEALS Current Outpatient Medications: Ergocalciferol 1.25 MG (89039 UT) capsule, Take 1 capsule by mouth once a week., Disp: 8 capsule, Rfl: 0 Pancreatic enzymes (Creon) [address]92-[address] Particles capsule, Take 3 [...] Monitored Anesthesia Care. Sabrina Dee MD, MPH [facility] 09-08-2023 History and physical note ENDOSCOPIC PREPROCEDURE HISTORY AND PHYSICAL HISTORY OF PRESENT ILLNESS: Chioma Rainey is a 53 y.o. female seen in the pre-procedure area at [facility]. The indication for endoscopic evaluation includes: Alcohol-induced chronic pancreatitis PAST MEDICAL HISTORY: Past Medical History: Diagnosis Date Anemia Depression H. pylori infection Neutrophilic leukocytosis Pancreatitis SURGICAL HISTORY: Past Surgical History: Procedure Laterality Date EGD W/ ULTRASOUND N/A 12/01/2019 Laterality: N/A; Surgeon: Sabrina Dee MD, MPH; Location: [facility] EGD W/ ULTRASOUND N/A 04/23/2016 Laterality: N/A; Surgeon: Pineda Tryo MD; Location: [facility] EGD W/ ULTRASOUND N/A 01/23/2016 Laterality: N/A; Surgeon: Pineda Troy MD; Location: [facility] CHANGE TUBE GASTROSTOMY N/A 08/20/2015 Laterality: N/A; Surgeon: Yanni Alonzo MD; Location: [facility] EGD DIAGNOSTIC N/A 06/25/2015 Laterality: N/A; Surgeon: Pineda Troy MD; Location: [facility] EGD W/ PLACEMENT OR REPLACEMENT PEG N/A 06/15/2015 Laterality: N/A; Surgeon: Curry Newell MD; [facility] EGD W/ INSERTION TUBE OR CATHETER N/A 06/13/2015 Laterality: N/A; Surgeon: Jose Ty MD; Location: [facility] EGD W/ ULTRASOUND N/A 02/14/2015 Laterality: N/A; Surgeon: Pineda Troy MD; Location: [facility] CHOLECYSTECTOMY CHOLECYSTECTOMY, LAPAROSCOPIC HYSTERECTOMY MEDICATIONS: Current Outpatient Medications Medication Instructions Ergocalciferol (VITAMIN D2) 50,000 Units, Oral, WEEKLY Pancreatic enzymes (Creon) 93968-[address] Particles capsule 72,000 Units, Oral, 2 TIMES DAILY WITH MEALS Current Outpatient Medications: Ergocalciferol 1.25 MG (24062 UT) capsule, Take 1 capsule by mouth once a week., Disp: 8 capsule, Rfl: 0 Pancreatic enzymes (Creon) 12966-[address] units [address] Particles capsule, Take 3 [...] Dee MD, MPH documented in this encounter [facility] 09-08-2023 Miscellaneous Notes RN and educated pt on DC instructions, pt verbalized understanding. IV removed per protocol. documented in this encounter [facility] 09-08-2023 Nurse Note Stefano educated pt on DC instructions, pt verbalized understanding. IV removed per protocol. [facility] 05-22-2023 Miscellaneous Notes Called patient to remind them to bring their most current copy of their medication list with them to their appt. Patient verbalizes understanding. [facility]23 Telephone encounter Note Called patient to remind them to bring their most current copy of their medication list with them to their appt. Patient verbalizes understanding. [facility] 05-11-2023 History of Presen t illness Narrative This Solar Installation Technician verified the patients name and date of [...] for pain management 5. Prior evaluation at [facility] for TPIAT and was not a [...] includes the following prescription(s): Pancreatic enzymes (Creon) 86410-[address] units [address] Particles capsule and Ergocalciferol 1.25 MG (33943 UT) capsule. Allergies: She is allergic to [...] Hepatology, and Nutrition documented in this encounter [facility] 05-11-2023 Instructions Sabrina Dee MD, MPH [...] celiac plexus block documented in this encounter [facility] 04-16-2023 Miscellaneous Notes Pt called requesting to schedule a new patient appt. Referral is in media from [employer] A good phone number to reach the pt: [phone] Referral in media was to [facility] so pt has no referral to nephrology. LM informing pt she would need to have her referring provider fax us over a referral and then I could schedule her a new pt appt. [facility] Telephone encounter Note Pt called requesting to schedule a new patient appt. Referral is in media from [employer] A good phone number to reach the pt: [phone] [facility]23 Telephone encounter Note Referral in media was to [facility] so pt has no referral to nephrology. LM informing pt she would need to have her referring provider fax us over a referral and then I could schedule her a new pt appt. [facility]-16-2023 Miscellaneous Notes LMOM for the patient to call and schedule their new pt appointment with [facility]. [facility] Telephone encounter Note LMOM for the patient to call and schedule their new pt appointment with [facility]. [facility] 08-12-2022 History and physical note ENDOSCOPIC [...] GASTROSTOMY N/A 08/20/2015 Laterality: N/A; Surgeon: Yanni Alozno MD; Location: [facility] EGD DIAGNOSTIC N/A [...] 20 mg, Oral, DAILY Pancreatic enzymes (Creon) [address]90-[address] Particles capsule 48,000 Units, Oral, 3 TIMES DAILY WITH MEALS Current Outpatient Medications: omeprazole [address] capsule, Take 1 capsule by mouth daily., Disp: 30 capsule, Rfl: 6 amitriptyline 10 MG tablet, Take 2.5 tablets by mouth at bedtime., Disp: 30 tablet, Rfl: 11 ergocalciferol 1.25 MG (13450 UT) capsule, Take 1 capsule by mouth once a week for 8 doses., Disp: 8 capsule, Rfl: 0 Pancreatic enzymes (Creon) 64145-[address] units [address] Particles capsule, Take 2 [...] Monitored Anesthesia Care. Sabrina Dee MD, MPH [facility] 08-12-2022 History and physical note ENDOSCOPIC PREPROCEDURE HISTORY AND PHYSICAL HISTORY OF PRESENT ILLNESS: Chioma Rainey is a 52 y.o. female seen in the pre-procedure area at [facility]. The indication for endoscopic evaluation includes: Alcohol-induced chronic pancreatitis PAST MEDICAL HISTORY: Past Medical History: Diagnosis Date Anemia Depression H. pylori infection Neutrophilic leukocytosis Pancreatitis SURGICAL HISTORY: Past Surgical History: Procedure Laterality Date EGD W/ ULTRASOUND N/A 12/01/2019 Laterality: N/A; Surgeon: Sabrina Dee MD, MPH; Location: [facility] EGD W/ ULTRASOUND N/A 04/23/2016 Laterality: N/A; Surgeon: Pineda Troy MD; Location: [facility] EGD W/ ULTRASOUND N/A 01/23/2016 Laterality: N/A; Surgeon: Pineda Troy MD; Location: [facility] CHANGE TUBE GASTROSTOMY N/A 08/20/2015 Laterality: N/A; Surgeon: Yanni Alonzo MD; Location: [facility] EGD DIAGNOSTIC N/A 06/25/2015 Laterality: N/A; Surgeon: Pineda Troy MD; Location: [facility] EGD W/ PLACEMENT OR REPLACEMENT PEG N/A 06/15/2015 Laterality: N/A; Surgeon: Curry Newell MD; Location: [facility] EGD W/ INSERTION TUBE OR CATHETER N/A 06/13/2015 Laterality: N/A; Surgeon: Jose Ty MD; Location: [facility] EGD W/ ULTRASOUND N/A 02/14/2015 Laterality: N/A; Surgeon: Pineda Troy MD; Location: [facility] CHOLECYSTECTOMY CHOLECYSTECTOMY, LAPAROSCOPIC HYSTERECTOMY MEDICATIONS: Current Outpatient Medications Medication Instructions Amitriptyline (ELAVIL) 25 mg, Oral, DAILY AT BEDTIME Ergocalciferol (VITAMIN D2) 50,000 Units, Oral, WEEKLY omeprazole (PRILOSEC) 20 mg, Oral, DAILY Pancreatic enzymes (Creon) 79635-[address] Particles capsule 48,000 Units, Oral, 3 TIMES DAILY WITH MEALS Current Outpatient Medications: omeprazole [address] capsule, Take 1 capsule by mouth daily., Disp: 30 capsule, Rfl: 6 amitriptyline 10 MG tablet, Take 2.5 tablets by mouth at bedtime., Disp: 30 tablet, Rfl: 11 ergocalciferol 1.25 MG (12543 UT) capsule, Take 1 capsule by mouth once a week for 8 doses., Disp: 8 capsule, Rfl: 0 Pancreatic enzymes (Creon) 48291-[address] Particles capsule, Take 2 [...] MD, MPH documented in this encounter [facility] 08-12-2022 Nurse Note PT Given discharge paperwork and reviewed per MD and nurse. Telehealth Nurse Educator available.Diet and restrictions reviewed as well. Venous access removed no complications noted. Ok to d/c Anesthesia and procedural . documented in this encounter [facility] 08-12-2022 Nurse Surgical operation note PT Given discharge paperwork and reviewed per MD and nurse. Telehealth Nurse Educator available.Diet and restrictions reviewed as well. Venous access removed no complications noted. Ok to d/c [facility]est[facility] and procedural . [facility] History of Presen t illness Narrative This Solar Installation Technician verified the patients name and date of [...] for pain management 5. Prior evaluation at [facility] for TPIAT and was not a candidate 6. Last CT was at [facility] in 05/2019: No calcification in the [...] amitriptyline 10 MG tablet, ergocalciferol 1.25 MG (50157 UT) capsule, and Pancreatic enzymes (Creon) 30[address]-[address] Particles capsule. Allergies: She [...] Hepatology, and Nutrition documented in this encounter [facility] 06-16-2022 Instructions Sabrina Dee MD, MPH - 06/16/2022 11:00 AM EDT Schedule EUS celiac plexus block; EGD dilation Referral to endocrinology; appointment to be scheduled Return to clinic in Mar 2023 Smoking cessation Vitamin D 2000 units daily Calcium supplement 1 gram daily Omeprazole (Prilosec) 20mg daily, take at least 30 mins before dinner documented in this encounter [facility] 01-28-2022 Miscellaneous Notes Attending physician in room speaking with patient and family on results. Attending physician ok for discharge. Pt ambulated unassisted with steady gait and balance. IV removed and discharge instructions given with verbal ok by patient of understanding. Pt discharged via w/c with fire truck driver from unit. Dr dee aware patient ready for results Updated dr goins on patient pain and received new orders documented in this encounter [facility] 01-28-2022 Note Formatting of this n ote might be different from the original. Attending physician in room speaking with patient and family on results. Attending physician ok for discharge. Pt ambulated unassisted with steady gait and balance. IV removed and discharge instructions given with verbal ok by patient of understanding. Pt discharged via w/c with fire truck driver from unit. [facility] 01-28-2022 Note Formatting of this n ote might be different from the original. Dr dee aware patient ready for results [facility] 01-28-2022 Note Formatting of this n ote might be different from the original. Updated dr goins on patient pain and received new orders [facility] 01-28-2022 History and physical note ENDOSCOPIC PREPROCEDURE HISTORY AND PHYSICAL HISTORY OF PRESENT ILLNESS: Chioma Rainey is a 51 y.o. female seen in the preoprocedure area at [facility]. The indication for endoscopic evaluation [...] 50,000 Units, Oral, WEEKLY Pancreatic enzymes (Creon) 60459-[address] units [address] Particles capsule 48,000 Units, Oral, 3 TIMES DAILY WITH MEALS Current Outpatient Medications: amitriptyline 10 MG tablet, Take 2.5 tablets by mouth at bedtime., Disp: 30 tablet, Rfl: 11 Pancreatic enzymes (Creon) 84759-732[address] units Cap [address] Particles capsule, Take 2 capsules by mouth 3 times daily with meals., Disp: 180 capsule, Rfl: 0 ergocalciferol 1.25 MG (06396 UT) capsule, Take 1 capsule by mouth [...] Monitored Anesthesia Care. Sabrina Dee MD, MPH [facility] 01-28-2022 History and physical note ENDOSCOPIC PREPROCEDURE HISTORY AND PHYSICAL HISTORY OF PRESENT ILLNESS: Chioma Rainey is a 51 y.o. female seen in the preoprocedure area at [facility]. The indication for endoscopic evaluation [...] 50,000 Units, Oral, WEEKLY Pancreatic enzymes (Creon) 64[address] Particles capsule 48,000 Units, Oral, 3 TIMES DAILY WITH MEALS Current Outpatient Medications: amitriptyline 10 MG tablet, Take 2.5 tablets by mouth at bedtime., Disp: 30 tablet, Rfl: 11 Pancreatic enzymes (Creon) 10748-[address] units [address] Particles capsule, Take 2 capsules by mouth 3 times daily with meals., Disp: 180 capsule, Rfl: 0 ergocalciferol 1.25 MG (09181 UT) capsule, Take 1 capsule by mouth [...] MD, MPH documented in this encounter [facility] 12-16-2021 History of Presen [...] for pain management 5. Prior evaluation at [facility] for TPIAT and was not a candidate 6. Last CT was at [facility] in 05/2019: No calcification in the [...] 10 MG tablet and Pancreatic enzymes (Creon) 27769-[address] Particles capsule. Allergies: She [...] in 6 months documented in this encounter [facility] 12-16-2021 Instructions Sabrina Dee MD, MPH - 12/16/2021 11:30 AM EDT Schedule DEXA scan Schedule colonoscopy Schedule EUS Start vitamin D 1,000 units daily. Start calcium supplements 1g daily RTC in 6 months documented in this encounter [facility] 03-19-2021 Evaluation note Encounter Date Diagnosis [...] Patient care instructions given in writting by [facility] At Home document [employer] Other 08-01-2020 History general Narrative - Reported* Type Description Date Medical History chronic pancreatitis Medical History chronic pain Medical History former alcoholic Surgical History [facility]d- [facility] 10[facility]2019 Surgical History GALLBLADDER Surgical History COLON-[facility] Hospitalization History see above [employer] Other Evaluation noteNo assessment information available [facility] Work Phone: Evaluation note* Diagnosis Recurrent acute pancreatitis- Primary Acute pancreatitis History of smoking 25-50 pack years Alcohol-induced chronic pancreatitis Chronic pancreatitis Epigastric pain Abdominal pain, epigastric Encounter for screening colonoscopy Special screening for malignant neoplasms, colon [facility] Diagnosis Recurrent acute pancreatitis Acute pancreatitis History of smoking 25-50 pack years Encounter for screening colonoscopy Special screening for malignant neoplasms, colon [facility] Diagnosis Other osteoporosis without current pathological fracture- Primary Recurrent acute pancreatitis Acute pancreatitis Encounter for screening colonoscopy Special screening for malignant neoplasms, colon [facility] Diagnosis Encounter for screening colonoscopy Special screening for malignant neoplasms, colon [facility] Diagnosis Osteoporosis without current pathological fracture, unspecified osteoporosis type- Primary Alcohol-induced chronic pancreatitis Chronic pancreatitis [facility] Diagnosis Alcohol-induced chronic pancreatitis Chronic pancreatitis [facility] Diagnosis Alcohol-induced chronic pancreatitis- Primary Chronic pancreatitis Encounter for screening for malignant neoplasm of colon Special screening for malignant neoplasms, colon Other osteoporosis without current pathological fracture Epigastric pain Abdominal pain, epigastric Smoking Tobacco use disorder Gastroesophageal reflux disease without esophagitis Esophageal reflux [facility] Diagnosis Alcohol-induced chronic pancreatitis Chronic pancreatitis [facility] Additional Instructions Fluids Phenergan if needed for nausea vomiting Bentyl as needed for abdominal pain Follow-up with your GI specialist call Thursday for appointment Return here if any problems persist or worsen [facility] Work Phone: Hospital Discharge instructions Additional Instructions Clear with diet today and advance as tolerated Push fluids Percocet if needed for severe pain Zofran or Phenergan if needed for nausea vomiting Keep your doctor's appointment tomorrow as planned Return here if you develop any increased pain, vomiting unable to be controlled, fevers, chills or [facility] Work Phone: Hospital Discharge instructions Additional Instructions Follow-up with your primary care doctor Return to ED if develop worsening symptoms or [facility] Work Phone: Hospital Discharge instructions Additional Instructions Follow-up with your private physician as your calcium was slightly elevated Return if symptoms are worse Lots of fluids/no [facility]Cl[facility] Work Phone: InstructionsNot on filedocumented [...] Log into your personal health record on [email or web address] and enter E907 in the Education box to learn more about Abdominal Pain: Care Instructions. Current as of: August 03, 2015 Content Version: 11.2 8165-0896 [employer]. Care instructions adapted under license by your healthcare professional. If you have questions about a medical condition or this instruction, always ask your healthcare professional. [employer] disclaims any warranty or liability for your [...] Log into your personal health record on [email or web address] and enter H591 in the Education box to learn more about Nausea and Vomiting: Care Instructions. Current as of: August 03, 2015 Content Version: 11.2 9461-0128 [employer]. Care instructions adapted under license by your healthcare professional. If you have questions about a medical condition or this instruction, always ask your healthcare professional. [employer] disclaims any warranty or liability for your use of this information. Please review regarding your visit: Please note that your blood pressure during this ER visit was above 120/80 mmHg. YOUR BP READING WAS: 111/88 The [place] [employer] (AHA) defines a normal blood [...] review at your convenience for more information: [email or web address] in this encounter* Discharge Instr - Other Orders - Poncho Sparks RN - 05/15/2017 1:20 PM EST Patient voices desire to leave hospital AMA. IV removed. Patient is ambulatory in care of spouse. [facility] hospitalist notified. in this encounter* Montse Khan CNP - 08/24/2017 Seek medical attention if you have worsening symptoms or other concerns. Please follow up with your family doctor or one of your choosing. You may find a provider through the [facility] Physician Referral Service by calling [phone] ([phone]) or by visiting [email or web address] Chioma, Thank You for choosing [facility]! The following attachments cannot be sent through Care Everywhere. * Nausea and Vomiting (Paraguayan) * Gastroenteritis (Paraguayan) * Diarrhea (Paraguayan) in this encounter The following attachments cannot be sent through Care Everywhere. * Pancreatitis (Paraguayan) in this encounter* Instructions* Laura Meyer, RN - 08/25/2019 Patient Instructions: Activity: activity as tolerated Diet: encourage fluids GI specialist in 2 weeks. * Attachments The following attachments cannot be sent through Care Everywhere. * Pancreatitis: Chronic Diet (Paraguayan) * Pancreatitis (Paraguayan) documented in this encounter Assessments Diagnosis Epigastric [...] FoundDocuments on File Type Date Recorded Patient Medical Technologist Chemistry Expl anation Advance Directives and Living Will Power of Pharmacy Technician Inpatient Latest Code Status on File Code Status Date Activated Date Inactivated Comments Full Code 08/22/2019 4:27 PM Documents on File Type Date Recorded Patient Medical Technologist Chemistry Expl anation Advance Directives and Livin g [...] Documents on File Type Date Recorded Patient Medical Technologist Chemistry Expl anation ACP-Advance Directive ACP-Power of Pharmacy Technician Inpatient Latest Code Status on File Code Status [...] toradol is contraindicated. Called Dr. Hughes back, engineering writer explained that patient is tolerating dilaudid. Dr. Hughes ordered dose of dilaudid increased from 0.25 mg to 0.5 mg q4 hrs PRN. * Ladan Stearns RN - 08/24/2019 1:27 PM EDT Patient walking in hallway at this time. * Ladan Stearns RN - 08/24/2019 9:14 AM EDT [employer] to patients bedside at this time to reassess pain. Patient sitting in chair, appears restless and is tearful. Patient states Dilaudid did not help the pain, states there is nothing engineering writer can do as she deals with [...] Scheduled for EGD in September with her Director Of Bands at [facility] Discharge Planning -- Home when stable Carley Camara APRN, ENGINE REPAIRER PRODUCTION-C Associated attestation - Rajeev Cantor MD - 08/24/2019 5:30 PM EDT Attending Supervising Physician s Attestation Statement I have personally evaluated and examined the patient [id number] in conjunction with the nurse practitioner. I [...] Examined and Reviewed plan of care with ENGINE REPAIRER PRODUCTION. Directions and discussion about care and plans. [...] [place] RN - 08/23/2019 4:40 PM EDT [employer] contacted Dr. Cantor regarding update that patient [...] he would not give order for Benedryl. [employer] let nurse know that if patient's c/o ithcing and redness doesn't improve in an hour, that engineering writer will be calling back to update physician. * Brie Birmingham RN - 08/23/2019 3:20 PM EDT [employer] called into patient's room d/t patient c/o itching, feeling hot , and slight redness noted to BUE and face. [employer] contacted Dr. Cantor office and left message with his nurse, asking for IV Benedryl and d/c of Lovenox. Patient thinks she may have had reaction to Lovenox in the past, and thatis the only other med she is currently taking here other than Dilaudid. [employer] did once again verify that patient usually [...] medically stable. Patient lives with her in [place]. She uses no DME and has no outside services currently in place. Patient provides for her own transportation needs and manages her medications. She is independent with her ADL's. PCP is [facility]. Patient has [facility] and denies needing further assistance with the cost of her medications. Discharge plan is home with no additional services at this time. Patient is a 'Full Code' status. She has no healthcare directives and voices that she is not interested in pursuing these documents further. CARDIOLOGY NURSE PRACTITIONER to monitor and assist with discharge planning [...] [place] RN - 08/23/2019 9:05 AM EDT [employer] made WINDSHIELD TECHNICIAN aware that patient is vomiting at this time since clear liquid diet added. [employer] to give Zofran and place patient back [...] weight loss, but states of weight gain. [id number] Discussed need to re-zero Pt bed to verify gain. She declined education needs states she has a GI doctor and RDN at the [facility]. Reports following the guidelines they recommended. [...] 5. Fluid Accumulation-No significant fluid accumulation, 6. Strike Off Machine Operator Strength-Not measured Nutrition Risk Level: Moderate Nutrient Needs: Estimated Daily Total Kcal: 4151-4846(20-23/kg) Estimated Daily Protein (g): 65-75g(1.3-1.5g/kg) Estimated Daily [...] weight gain/23%, recommend to re-zero Pt bed [place] Body Wt: 110 lb (49.9 kg), % [place] Body 129% BMI Classification: BMI 25.0 - [...] Nausea or Vomiting, Patient/Family Education Contact Number: [phone] * Carley Camara APRN - NAOMY - [...] Daily Discharge Plan--later today/tomorrow Carley Camara APRN, ENGINE REPAIRER PRODUCTION-C Associated attestation - Rajeev Cantor MD - 08/23/2019 12:04 PM EDT Attending Supervising Physician s Attestation Statement I have personally evaluated and examined the patient [id number] in conjunction with the nurse practitioner. I [...] Examined and Reviewed plan of care with ENGINE REPAIRER PRODUCTION. Directions and discussion about care and plans. [...] Patient arrived to floor via w[facility]c [facility] staff d/t ED in process of running a code on another patient; buildings and grounds supervisor states that report will be called when able. [employer] unable to get ahold of staff inED to put patient in manager code so that engineering writer can transfer patient over to [facility]. Will try again shortly. documented [...] Diagnoses Alcohol-induced chronic pancreatitis Procedures UPPER EUS AK ESOPHAGOGASTRODUODENOSCOPY US SCOPE W/ADJ STRXRS Sabrina Dee MD, MPH [address] [place] [phone] Referral ID Status Reason Start Date Expiration Date V isits Requested Visits Authorized [id number] New Request 06/16/2022 07/11/2023 1 1 Specialty Diagnoses / Procedures Referred By Contac t Referred To Contact Endocrinology, Diabetes & Metabolism Diagnoses Osteoporosis without current pathological fracture, unspecified osteoporosis type Sabrina Dee MD, MPH [address] [place] [phone] Referral ID Status Reason Start Date Expiration Date V isits Requested Visits Authorized [id number] New Request 06/16/2022 07/11/2023 1 1 Specialty Diagnoses / Procedures Referred By Contac t Referred To Contact Diagnoses Encounter for screening colonoscopy Procedures SCREENING COLONOSCOPY AK COLON CA SCRN NOT HI RSK IND Sabrina Dee MD, MPH [address] [place] [phone] Referral ID Status Reason Start Date Expiration Date V isits Requested Visits Authorized [id number] New Request 12/16/2021 01/10/2023 1 1 Specialty Diagnoses / Procedures Referred By Contac t Referred To Contact Diagnoses Recurrent acute pancreatitis History of smoking 25-50 pack years Procedures BONE DENSITY AXIAL (HIP, PELVIS, SPINE) Sabrina Dee MD, MPH [address] [place] [phone] Referral ID Status Reason Start Date Expiration Date V isits Requested Visits Authorized [id number] New Request 12/16/2021 01/10/2023 1 1 Specialty Diagnoses / Procedures Referred By Contac t Referred To Contact Diagnoses Recurrent acute pancreatitis Procedures UPPER EUS AK EGD US GUIDED TRANSMURAL INJXN/FIDUCIAL MARKER Sabrina Dee MD, MPH [address] [place] [address] Referral ID Status Reason Start Date Expiration Date V isits Requested Visits Authorized [id number] New Request 12/16/2021 01/10/2023 1 1 Additional [...] the patient. I discussed the patient with ENGINE REPAIRER PRODUCTION/PA. I agree with the ENGINE REPAIRER PRODUCTION/PA treatment plan. I agree with the ENGINE REPAIRER PRODUCTION/PA plan of care. I agree with the ENGINE REPAIRER PRODUCTION/PA dispo as documented. 46-year-old female presents with abdominal pain. She states I have chronic pancreatitis and this feels like a flareup . States that she took her usual Phenergan and Sawyer with minimal relief so came the emergency [...] She is going to follow with her inspector golf ball with whom she has an appointment on [...] different from the original. ED PROVIDER NOTE [facility] EMERGENCY DEPARTMENT NAME: Chioma Rainey AGE: 46 y.o. : 1970 VISIT DATE: 06/09/2017 CSN: [id number] PCP: Elie Nichols MD Chief Complaint Patient [...] Phenergan suppository. She states that she took Sawyer last night. Last dose of Sawyer was around 9 PM last night. She [...] Procedure: EGD; Surgeon: Romain Dumont MD; Location: [facility]; Service: HYSTERECTOMY ORIF PELVIS ORTHOPEDIC SURGERY [...] Yellow Clarity, Urine Cloudy (A) Clear Specific [place] 1.024 1.005 - 1.025 pH, Urine 5.0 [...] Phenergan suppositories. She has follow-up with her inspector golf ball at [facility] in 2 weeks. Do not feel [...] 1. Pineda Troy MD. Specialty: Gastroenterology [facility] [address] [address] Contact information for after-discharge care Follow-up information [...] her back. Pt has been taking prescribed Sawyer without relief and states she has been vomiting.in this encounter I personally interviewed the patient. I personally examined the patient. I discussed the patient with ENGINE REPAIRER PRODUCTION/PA. I agree with the ENGINE REPAIRER PRODUCTION/PA treatment plan. I agree with the ENGINE REPAIRER PRODUCTION/PA plan of care. I agree with the ENGINE REPAIRER PRODUCTION/PA dispo as documented. I saw evaluate this [...] different from the original. ED PROVIDER NOTE [facility] MEDICAL OBSERVATION NAME: Chioma Rainey AGE: 46 y.o. : 1970 VISIT DATE: 05/14/2017 CSN: [id number] PCP: Elie Nichols MD Chief Complaint Patient [...] Procedure: EGD; Surgeon: Romain Dumont MD; Location: [facility]; Service: HYSTERECTOMY ORIF PELVIS ORTHOPEDIC SURGERY [...] Colorless, Yellow Clarity, Urine Clear Clear Specific [place] 1.006 1.005 - 1.025 pH, Urine 5.0 [...] in the left lower pelvis. Workstation ID: [id number] Procedures MDM This is a 46-year-old female [...] 05/14/17 2100 Indu Duncan Zepeda PA-C 05/14/17 8668 IV access attempted x 1 unsuccessful . [...] different from the original. ED PROVIDER NOTE [facility] EMERGENCY DEPARTMENT NAME: Chioma Rainey AGE: 47 y.o. : 1970 VISIT DATE: 08/24/2017 CSN: [id number] PCP: Elie Nichols MD Chief Complaint Patient [...] Procedure: EGD; Surgeon: Romain Dumont MD; Location: [facility]; Service: HYSTERECTOMY ORIF PELVIS ORTHOPEDIC SURGERY [...] Yellow Clarity, Urine Hazy (A) Clear Specific [place] 1.006 1.005 - 1.025 pH, Urine 7.0 [...] probably remain. 5. Small left adrenal adenoma. From[employer]Table[employer] Workstation ID: [id number] Procedures MDM 47-year-old female [...] she did vomit. She was then given AK Phenergan and a dose of Toradol. She [...] Medicine Why: follow up ER visit [address] [address] Contact information for after-discharge care Follow-up information [...] the patient. I discussed the patient with ENGINE REPAIRER PRODUCTION/PA. I agree with the ENGINE REPAIRER PRODUCTION/PA treatment plan. I agree with the ENGINE REPAIRER PRODUCTION/PA plan of care. I agree with the ENGINE REPAIRER PRODUCTION/PA dispo as documented. Formatting of this note may be different from the original. ED PROVIDER NOTE [facility] EMERGENCY DEPARTMENT NAME: Chioma Rainey AGE: 47 y.o. : 1970 VISIT DATE: 03/04/2018 CSN: [id number] PCP: Elie Nichols MD Chief Complaint Patient [...] Procedure: EGD; Surgeon: Romain Dumont MD; Location: [facility]; Service: HYSTERECTOMY ORIF PELVIS ORTHOPEDIC SURGERY [...] Colorless, Yellow Clarity, Urine Clear Clear Specific [place] 1.004 (L) 1.005 - 1.025 pH, Urine [...] Condition Comment Hospitalize Attending Provider or Group: [facility], GENERIC [[id number]] Phone call required?: No Follow-up Information Follow-up information has not been specified. Contact information for after-discharge care Follow-up information has not been specified. New Prescriptions No medications on file Konstantin Connolly PA-C 03/04/18 1412 Konstantin Connolly PA-C 03/04/18 1541 Pt sts that she has a history of pancreatitis and believes she is having a flare up.in this encounter Alirio Negor MD - 05/14/2017 6:40 PM EST H&P Notes (unrecognized sect ion and content) Formatting of this note may be different from the original. Alirio Negro MD [facility] Hospitalists History and Physical Patient Name:Chioma Rainey MR #:[id number] :1970 Admit Date: [id number] Physicians: Elie Nichols MD (Family); No ref. [...] Procedure: EGD; Surgeon: Romain Dumont MD; Location: [facility]; Service: HYSTERECTOMY ORIF PELVIS ORTHOPEDIC SURGERY [...] Diagnoses Acute recurrent pancreatitis Rajeev Cantor MD [address] [place] [address], [place] [address] [facility] Reason Comments Abdominal Pain Pt c/o abdominal [...] SPINE) Sabrina Dee MD, MPH [address] [place] [phone] Referral ID Status Reason Start Date Expiration Date V isits Requested Visits Authorized [id number] New Request 12/16/2021 01/10/2023 1 1 Specialty Diagnoses / Procedures Referred By Zia t Referred To Contact Diagnoses Recurrent acute pancreatitis Procedures UPPER EUS AK EGD US GUIDED TRANSMURAL INJXN/FIDUCIAL MARKER Sabrina Dee MD, MPH [address] [place] [phone] Referral ID Status Reason Start Date Expiration Date V isits Requested Visits Authorized [id number] New Request 12/16/2021 01/10/2023 1 1 Specialty Diagnoses / Procedures Referred By Zia t Referred To Contact Diagnoses Encounter for screening colonoscopy Procedures SCREENING COLONOSCOPY AK COLON CA SCRN NOT HI RSK IND Sabrina Dee MD, MPH [address] [place] [phone] Referral ID Status Reason Start Date Expiration Date V isits Requested Visits Authorized [id number] New Request 12/16/2021 01/10/2023 1 1 Reason Comments Follow-up 6 month follow up Specialty Diagnoses / Procedures Referred By Zia t Referred To Contact Diagnoses Alcohol-induced chronic pancreatitis Procedures UPPER EUS AK ESOPHAGOGASTRODUODENOSCOPY US SCOPE W/ADJ STRXRS Sabrina Dee MD, MPH [address] [place] [phone] Referral ID Status Reason Start Date Expiration Date V isits Requested Visits Authorized [id number] New Request 06/16/2022 07/11/2023 1 1 Reason Comments Follow-up Specialty Diagnoses / Procedures Referred By Zia espinal Referred To Contact Diagnoses Alcohol-induced chronic pancreatitis Procedures UPPER EUS AK EGD US GUIDED TRANSMURAL INJXN/FIDUCIAL MARKER Sabrina Dee MD, MPH [address] [place] [address] Referral ID Status Reason Start Date Expiration Date V isits Requested Visits Authorized [id number] New Request 05/11/2023 06/04/2024 1 1 INFORMATION SOURCE (unrecogn ized section and content) DATE CREATED AUTHOR 03/09/2018 [facility] DATE CREATED AUTHOR AUTHOR'S ORGANIZ ATION 04/08/2021 [facility] DATE CREATED AUTHOR AUTHOR'S ORGANIZ ATION 06/18/2022 [facility] DATE CREATED AUTHOR AUTHOR'S ORGANIZ ATION 04/12/2023 [facility] DATE CREATED AUTHOR AUTHOR'S ORGANIZ ATION 09/02/2023 [facility] DATE CREATED AUTHOR AUTHOR'S ORGANIZ ATION 09/09/2023 [facility] DATE CREATED AUTHOR AUTHOR'S ORGANIZ ATION 10/02/[address] [facility] Care Teams (unrecognized sec [...] Active Christa Lopez PA-C Emergency Provider Active Veterinary Surgeon Relationship Specialty Start Date End Date Pineda Troy MD [address] [place] [address] PCP - Referring 1 Gastroenterology 09/25/17 [facility], Other [address] [place] [address] PCP - General 11/28/19 Veterinary Surgeon Relationship Specialty Start Date End Date Pineda Troy MD [address] [place] [phone] PCP - Referring 1 Gastroenterology 09/25/17 [facility], Other [address] [place] [address] PCP - General 11/28/19 Veterinary Surgeon Relationship Specialty Start Date End Date Pineda Troy MD [address] [place] [phone] PCP - Referring 1 Gastroenterology 09/25/17 [facility], Other [address] [place] [address] PCP - General 11/28/19 Veterinary Surgeon Relationship Specialty Start Date End Date Pineda Troy MD [address] [place] [phone] PCP - Referring 1 Gastroenterology 09/25/17 [facility], Other [address] [place] [address] PCP - General 11/28/19 Team Status: Inactive Member Role Status Dates NON STAFF Primary Care Provider Active Agustin Llanes MD Emergency Provider Active Veterinary Surgeon Relationship Specialty Start Date End Date Pineda Troy MD [address] [place] [phone] PCP - Referring 1 Gastroenterology 09/25/17 [facility], Other [address] [place] [address] PCP - General 11/28/19 Veterinary Surgeon Relationship Specialty Start Date End Date Pineda Troy MD [address] [place] [phone] PCP - Referring 1 Gastroenterology 09/25/17 [facility], Other [address] [place] [address] PCP - General 11/28/19 Team Status: Inactive [...] April 11, 2023 End: April 12, 2023 Veterinary Surgeon Relationship Specialty Start Date End Date [facility] [address] [place], [place] PCP - General Family Medicine 03/26/23 Veterinary Surgeon Relationship Specialty Start Date End Date [facility] [address] [place], [place] PCP - General Family Medicine 03/26/23 Team Status: Inactive Member Role Status Dates NON STAFF Primary Care Provider Active Start: April 18, 2023 End: April 18, 2023 Xiang Kellogg MD Emergency Provider Active Star t: April 18, 2023 End: April 18, 2023 Veterinary Surgeon Relationship Specialty Start Date End Date Pineda Troy MD [address] [place] [phone] PCP - Referring 1 Gastroenterology 09/25/17 [facility], Other [address] [place] [address] PCP - General 11/28/19 Veterinary Surgeon Relationship Specialty Start Date End Date [facility] [address] [place], [place] PCP - General Family Medicine 03/26/23 Veterinary Surgeon Relationship Specialty Start Date End Date Pineda Troy MD PCP - Referring 1 Gastroenterology 09/25/17 [facility], Other [address] [id number] PCP - General 11/28/19 Goals (unrecognized section [...] BE BASED ON THE PRIMARY CLINICAL RECORDS. [employer] provides no warranty or guarantee of the accuracy or completeness of information in this document.
--- NOTE | 2023-12-11 17:53 | ED.ABDPAIN1 ---
HPI - Abdominal Pain General Chief Complaint: Abdominal Pain Stated Complaint: pancreatitis flare up per pt Time Seen by Provider: 12/11/23 17:16 Source: patient Mode of arrival: walk-in Limitations: no limitations History of Present Illness HPI narrative: 53-year-old female presents for abdominal pain. She states this in the epigastric area and goes across her upper abdomen. She states she has a history of pancreatitis and states she has had a flareup. It began last night. It has been continuous and she has had no fever or trauma or vomiting. No diarrhea. The pain is severe and continuous Related Data Home Medications ?Medication ?Instructions ?Recorded ?Confirmed albuterol sulfate 90 mcg/actuation 2 puff inhalation Q6H PRN 12/11/23 12/11/23 aerosol inhaler shortness of breath or wheezing Allergies Allergy/AdvReac Type Severity Reaction Status Date / Time haloperidol [From Haldol] Allergy Intermediate Hives Verified 12/11/23 17:21 ibuprofen [From Motrin] Allergy Intermediate Hives Verified 12/11/23 17:21 tramadol Allergy Intermediate Hives Verified 12/11/23 17:21 Penicillins Allergy Unknown Anaphylaxis Verified 12/11/23 17:21 ketorolac [From Toradol] AdvReac Severe Hives Verified 12/11/23 17:21 fentanyl AdvReac Intermediate Hives Verified 12/11/23 17:21 Review of Systems ROS Narrative A ten point review of systems is negative except as noted above. [facility] Medical History (Updated 12/11/23 @ 18:44 by Barry Stinson MD) COPD (chronic obstructive pulmonary disease) ?J44.9 - Chronic obstructive pulmonary disease, unspecified (ICD-10) Chronic pancreatitis ?K86.1 - Other chronic pancreatitis (ICD-10) Smoker ?F17.200 - Nicotine dependence, unspecified, uncomplicated (ICD-10) History of gastrostomy tube placement Surgical History (Updated 04/03/23 @ 12:10 by Marni Farley) Hx of esophagogastroduodenoscopy ?Z98.890 - Other specified postprocedural states (ICD-10) H/O colonoscopy ?Z98.890 - Other specified postprocedural states (ICD-10) Hx of cholecystectomy ?Z90.49 - Acquired absence of other specified parts of digestive tract (ICD-10) H/O: hysterectomy ?Z90.710 - Acquired absence of both cervix and uterus (ICD-10) Social History (Updated 04/03/23 @ 12:08 by Marni Farley) Smoking status: Current every day smoker Non-prescribed substance use: denies use Highest level of school completed/degree received: high school graduate Little interest or pleasure in doing things: not at all Feeling down, depressed, or hopeless: not at all Exam Narrative Exam Narrative: Nurses note and vital signs reviewed and patient is not hypoxic. General: The patient appears in no apparent distress. Patient appears uncomfortable. Skin: Warm, dry, no pallor noted. There is no rash noted. Head: Normocephalic, atraumatic Eye: Normal conjunctiva, no drainage Ears, Nose, Mouth, and Throat: oral mucosa is moist. Nares patent. Cardiovascular: Regular Rate and Rhythm Respiratory: Patient is in no distress, no accessory muscle use, lungs are clear to auscultation, no wheezing, rales or rhonchi Back: non-tender GI: Tenderness present across upper abdomen, particularly in the epigastric area. No masses or distention. Musculoskeletal: The patient has no evidence of calf tenderness, no pitting edema, symmetrical pulses noted bilaterally Neurological: A&O, normal speech Psychiatric: Cooperative Constitutional Vital Signs, click to edit/add: Last Vital Signs Pulse 103 H 12/11/23 17:21 Resp 16 12/11/23 17:21 BP 131/95 H 12/11/23 17:22 Pulse Ox 96 12/11/23 18:20 O2 Del Method Room Air 12/11/23 17:21 Course Vital Signs Vital signs: Vital Signs Pulse Rate 103 H 12/11/23 17:21 Respiratory Rate 16 12/11/23 17:21 Blood Pressure 131/95 H 12/11/23 17:21 Pulse Oximetry 95 12/11/23 17:21 Oxygen Delivery Method Room Air 12/11/23 17:21 Pulse Rate 103 H 12/11/23 17:21 Respiratory Rate 16 12/11/23 17:21 Blood Pressure 131/95 H 12/11/23 17:22 Pulse Oximetry 96 12/11/23 18:20 Oxygen Delivery Method Room Air 12/11/23 17:21 MDM - Abdominal Pain MDM Narrative Medical decision making narrative: Amylase and lipase are mildly elevated. She was given pain medication and the patient is being signed out to Dr. Odonnell at change of shift. Amylase is 167 and lipase is 178. She had a CT scan about 3 days ago. Differential Diagnosis Differential diagnosis: Likely abdominal pain, constipation, diverticulitis, gastroenteritis and pancreatitis Lab Data Attestation: I reviewed the patient's lab results. Labs: Lab Results 12/11/23 Range/Units 17:46 WBC 14.3 H (4.0-11.0) 10^3/uL RBC 4.29 (4.20-5.40) 10^6/uL Hgb 14.6 (12.0-16.0) g/dL Hct 42.3 (36.0-48.0) % MCV 98.6 (81.0-99.0) fL MCH 34.0 (26.7-34.0) pg MCHC 34.5 (29.9-35.2) g/dL RDW 12.8 (11.0-15.0) % Plt Count 264 (150-450) 10^3/uL MPV 9.8 (9.5-13.5) fL Neut % (Auto) 68.2 (43.0-75.0) % Lymph % (Auto) 21.6 (20.5-60.0) % Cecil % (Auto) 8.2 (1.7-12.0) % Eos % (Auto) 1.2 (0.9-7.0) % Baso % (Auto) 0.5 (0.2-2.0) % Neut # (Auto) 9.8 H (1.4-6.5) 10^3/uL Lymph # (Auto) 3.1 (1.2-3.8) 10^3/uL Cecil # (Auto) 1.2 H (0.3-0.8) 10^3/uL Eos # (Auto) 0.2 (0.0-0.7) 10^3/uL Baso # (Auto) 0.1 (0.0-0.1) 10^3/uL Abs Immat Gran (auto) 0.04 H (0.00-0.03) 10^3/uL Imm/Tot Granulo (auto) 0.3 (0.0-0.5) % Total Bilirubin 0.2 (0.2-1.0) mg/dL Direct Bilirubin 0.1 (0.0-0.2) mg/dL AST 18 (15-37) U/L ALT 18 (14-59) U/L Alkaline Phosphatase 129 H (46-116) U/L Total Protein 7.3 (6.4-8.2) g/dL Albumin 3.9 (3.4-5.0) g/dL Globulin 3.4 g/dL Albumin/Globulin Ratio 1.1 Amylase 167 H (25-115) U/L Lipase 178.0 H (16.0-77.0) U/L Discharge Plan Discharge Patient Disposition: Still a Patient
[2023-12-11 18:04] LABS: Basophils Absolute Auto 0.1 10^3/uL (0.0-0.1); Basophils Percent Auto 0.5 % (0.2-2.0); Eosinophils Absolute Auto 0.2 10^3/uL (0.0-0.7); Eosinophils Percent Auto 1.2 % (0.9-7.0); Hematocrit 42.3 % (36.0-48.0); Hemoglobin 14.6 g/dL (12.0-16.0); Immature Granulocytes Abs Auto 0.04 10^3/uL (0.00-0.03); Immature Granulocytes Pct Auto 0.3 % (0.0-0.5); Lymphocytes Absolute Auto 3.1 10^3/uL (1.2-3.8); Lymphocytes Percent Auto 21.6 % (20.5-60.0); Mean Corpuscular HGB Conc 34.5 g/dL (29.9-35.2); Mean Corpuscular Volume 98.6 fL (81.0-99.0); Mean Platelet Volume 9.8 fL (9.5-13.5); Monocytes Absolute Auto 1.2 10^3/uL (0.3-0.8); Monocytes Percent Auto 8.2 % (1.7-12.0); Neutrophils Absolute Auto 9.8 10^3/uL (1.4-6.5); Neutrophils Percent Auto 68.2 % (43.0-75.0); Platelet Count 264 10^3/uL (150-450); Red Blood Count 4.29 10^6/uL (4.20-5.40); Red Cell Distribution Width 12.8 % (11.0-15.0); White Blood Count 14.3 10^3/uL (4.0-11.0)
[2023-12-11 18:15] LABS: Alanine Aminotransferase 18 U/L (14-59); Albumin Globulin Ratio 1.1; Albumin Level 3.9 g/dL (3.4-5.0); Alkaline Phosphatase 129 U/L (46-116); Amylase 167 U/L (25-115); Aspartate Amino Transferase 18 U/L (15-37); Bilirubin Direct 0.1 mg/dL (0.0-0.2); Bilirubin Total 0.2 mg/dL (0.2-1.0); Globulin 3.4 g/dL; Total Protein 7.3 g/dL (6.4-8.2)
[2023-12-11] MEDS: HYDROMORPHONE HCL 1 MG/ML CARTRIDGE IV ×2 (18:20→19:03)
== END 2023-12-11 20:22 | disposition home or self-care (01) ==
PROVIDERS: Emergency Medicine; Emergency Provider Internal Medicine
DX: R10.9 Unspecified abdominal pain (principal); F17.200 Nicotine dependence, unspecified, uncomplicated
CPT/HCPCS: 36415; 80076; 81001; 82150; 83690; 85025; 96374; 96376; 99284; J1170

== ENCOUNTER 2023-12-23 04:52 | Emergency (ER) | payer OTHER, SELFPAY ==
[2023-12-23 05:05] VITALS: BP 126/83; PULSE 99; TEMP 36.6; O2SAT 99; BMI 22.9
--- OUTSIDE RECORDS SUMMARY | 2023-12-23 05:07 | XMS_ITS | CCD ---
Author Organization [facility] [employer] [facility] Care Team Providers Care 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 Name Role Phone MagdalenaDarrickimani Unavailable LI ALEXANDER Unavailable Unavailable COPC SACHIN, GENERIC Unavailable Unavailable COPC SACHIN, GENERIC Unavailable Unavailable ALIRIO NEGRO Unavailable Unavailable LI KEWA Unavailable Unavailable JOANA MENDES Unavailable Unavailable LI, KEWA Unavailable Unavailable ERROL WALTON Unavailable Unavaila ble LIDARRICKWA Unavailable Unavailable KEERTHI NGUYEN Unavailable Unavailable COPC SACHIN, GENERIC Unavailable Unavailable KEERTHI NGUYEN Unavailable Unavailable LI, KEWA Unavailable Unavailable [facility], [facility] Unavailable Unav ailable EUGENIA SHELTON Unavailable Unavailable [facility], [facility] Unavailable Unav ailable Unavailable Primary Care Provider UnavailAlexander Benson Primary Care Provider Unavailable Primary Care Provider UnavailMarya Guajardo Unavailable NON STAFF Primary Care Provider UnavailDO Keaton Thompson Emergency Provider SALMA Amor Emergency Provider [phone] SALMA Lopez Emergency Provider [phone] Woodrow ALEXANDER, Pineda Espinal Unavailable [facility], Other Primary Care Provi mathew NON STAFF Primary Care Provider UnavailMD Agustin Varela Emergency Provider DR TRI HANSON Consulting Unavailable ARIC CHAUDHARY Attending Unavailable ARIC CHAUDHARY Admitting Unavailable [facility] Primary Care Unavailable ARIC CHAUDHARY Consulting Unavailable AGUSTIN MADRIGAL Consulting Unavailable YANNI FRASER Attending Unavailable YANNI FRASER Admitting Unavailable [facility] Primary Care Unavailable HEBERT MCPHERSON Consulting Unavailable AMINATA, DR RAJEEV Chan Consulting Unavailable AMINATA, DR RAJEEV Chan Attending Unavailable AMINATA, DR RAJEEV Chan Admitting Unavailable [facility] Primary Care Unavailable JANNY ., ANKIT BOYKIN Consulting Unavailabl e IGGY ., MONIK Attending Unavailable IGGY ., MONIK Admitting Unavailable GRECHNY ., ANKIT BOYKIN [facility] ANNELIESE, NICK Consulting Unavailable JANUSZ ., ARIC Consulting Unavailable AGUSTIN HIGHTOWER Consulting Unavailable SHANITA EUCEDATAN Consulting Unavailable AMINATA, DR RAJEEV Chan Consulting Unavailable BRIANNA, DR SHARON Silveira Attending [facility] REINECK, DR SHARON Silveira Ad[facility] Unavailable BRIANNA, DR SHARON Silveira Consulting [facility] HANS ., NAT Consulting Unavailable HANS ., NAT Consulting Unavailable PAY ., DR MACEDO Attending Unavailable PAY ., DR MACEDO Admitting Unavailable [facility] Primary Care Unavailable ANNELIESE, NICK Consulting Unavailable ANNELIESE, NICK Attending Unavailable ANNELIESE, NICK Admitting Unavailable [facility] Primary Care Unavailable MILADIS BARRERA Consulting Unavailable JANUSZ ., ARIC Attending Unavailable JANUSZ ., ARIC Admitting Unavailable JANUSZ ., ARIC Consulting Unavailable [facility] Primary Care Unavailable ION KRUSE Consulting Unavailable YANNI FRASER Attending Unavailable YANNI FRASER Admitting Unavailable JANNY ., ANKIT BOYKIN [facility] Unavailable LYNNE PERDOMO Consulting Unavailable JANUSZ ., ARIC Attending Unavailable JANUSZ ., ARIC Admitting Unavailable [facility] Primary Care Unavailable JANUSZ ., ARIC Consulting Unavailable DIAB ., ELENITA Consulting Unavailable DIAB ., ELENITA Attending Unavailable DIAB ., ELENITA Admitting Unavailable [facility] Primary Care Unavailable PAY ., DR MACEDO Consulting Unavailable PAY ., DR MACEDO Attending Unavailable PAY ., DR MACEDO Admitting Unavailable [facility] Primary Care Unavailable ANNELIESE, NICK Consulting Unavailable ANNELIESE, NICK Attending Unavailable ANNELIESE, NICK Admitting Unavailable [facility] Primary Care Unavailable AGUSTIN HIGHTOWER Consulting Unavailable AMINATA, DR RAJEEV Chan Consulting Unavailable TANVIR ., DR GRANT Attending Unavailable TANVIR ., DR GRANT Admitting Unavailable [facility] Primary Care Unavailable TANVIR Herron, DR GRANT Consulting Unavailable NON STAFF Primary Care Provider Unavailabl e Saffle, CERTIFIED NURSE OPERATING ROOM Nicole Serrano Emergency Provider [phone] NON STAFF Primary Care Provider Unavailabl e Saffle, CERTIFIED NURSE OPERATING ROOM Nicole N Emergency Provider [phone] DO Rivera Lopez Emergency Provider [phone] SERVICES, [facility] Care Unava ilable BIRMINGHAM, VIC L Attending Unavailable [place] VIC L Attending Unavailable B[place], VIC L Referring Unavailable SERVICES, [facility] Unava ilable SERVICES, [facility] Care Unava ilable TABITHA NEWELL Attending Unavailable OSIRIS, TABITHA Chan Attending Unavailable TABITHA NEWELL Referring Unavailable SERVICES, [facility] Care Unava ilable TABITHA NEWELL Attending Unavailable TABITHA NEWELL Referring Unavailable SERVICES, [facility] Unava ilable Services, [facility] Primary Care Provider MD Xiang Kellogg Emergency Provider Pineda Troy MD Unavailable [facility], Other Primary Care Provi mathew NON STAFF Primary Care Unavailable Nicole Posadas Admitting Unavailable Nicole Posadas Attending Unavailable NON STAFF Primary Care Unavailable Rivera Lopez Admitting Unavailable Rivera Lopez Attending Unavailable Katharina Nicole N Attending Unavailable NON STAFF Primary Care Unavailable Nicole Posadas Admitting Unavailable NON STAFF Primary Care Unavailable Xiang Kellogg Admitting Unavailable Xiang Kellogg Attending Unavailable SABRINA DEE Attending Unavailflorida e [facility], OTHER Primary Care Un available SABRINA DEE Referring Unavailabl e SELF, SELF Referring Unavailable [facility] OTHER Primary Care Un available SABRINA DEE Attending Unavailflorida Troy MD, Pineda T Unavailable Allergies Allergy Classification Reported Allergen(s) Allergy Type Date of Onset Reaction(s) Facility DOPamine Antagonists (1 source) Metoclopramide Drug Allergy 07-20-19 17 Anxiety [facility] Haloperidol (1 source) Haloperidol Drug Allergy 06-02-19 16 [facility] NSAIDs (1 source) Ibuprofen Drug Allergy 10-31-19 13 Hives, Swelling [facility] Opioid Agonists (2 sources) Morphine Drug Allergy 10-24-19 15 [facility] Penicillins (antibiotic) (1 source) Penicillins Drug Allergy 10-31-19 13 Swelling [facility] Work Phone: (20 sources) haloperidol; Translations: [HALOPERIDOL] Propensity to adverse reactions to drug 06-02-19 16 [facility] (20 sources) ibuprofen; Translations: [IBUPROFEN] Propensity to adverse reactions to drug 10-31-19 13 Hives, Swelling, Anaphylaxis [facility] (6 sources) metoclopramide; Translations: [METOCLOPRAMIDE HCL] Propensity to adverse reactions to drug 07-01-19 17 [facility] (6 sources) penicillin g; Translations: [PENICILLIN G] Propensity to adverse reactions to drug 07-25-19 15 Anaphylaxis [facility] (20 sources) traMADol; Translations: [TRAMADOL] Propensity to adverse reactions to drug 07-25-19 15 [facility] (20 sources) morphine; Translations: [MORPHINE] Drug Allergy 07-16-19 18 [facility] (4 sources) Enoxaparin Drug Allergy 08-23-19 20 Itching, Rash [place], [place] (2 sources) Haloperidol Drug Allergy 10-20-19 18 Swelling [place] (16 sources) Penicillins; Translations: [PENICILLINS] Propensity to adverse reactions to drug 10-31-19 13 Anaphylaxis, Swelling [place] (2 sources) Haloperidol; Translations: [Haldol] Drug Allergy 08-10-19 19 Unknown [facility] Rep[facility] (14 sources) fentaNYL; Translations: [Fentanyl] Drug Allergy 09-13-19 21 [facility] (13 sources) Ketorolac; Translations: [KETOROLAC] Drug Allergy 06-13-19 21 [facility] (6 sources) Ketorolac Drug Allergy 12-17-19 22 Hives, Itching [facility] (9 sources) Metoclopramide Drug Allergy 07-01-19 17 Anxiety [facility] (1 source) Ibuprofen Drug Allergy 01-09-20 13 [facility] Rep[facility] (1 source) Ketorolac Drug Allergy [facility] Rep[facility] (1 source) Morphine Drug Allergy 08-10-19 19 [facility] Rep[facility] (1 source) Penicillins Drug allergy (disorder) 01-09-20 13 [facility] Rep[facility] (1 source) traMADol Drug Allergy 01-09-20 13 [facility] Rep[facility] (4 sources) Penicillins Propensity to adverse reactions to drug 10-10-19 18 Anaphylaxis [facility] (2 sources) Ketorolac trometamol Propensity to adverse reactions to drug 12-17-19 22 Hives, Itching [facility] (1 source) Penicillins Propensity to adverse reactions to drug 10-31-19 13 Swelling [facility] Work Phone: (1 source) Haloperidol Drug Allergy 04-18-19 [facility] Repository (1 source) Ibuprofen Drug Allergy 04-18-19 [facility] Repository (1 source) Morphine Drug Allergy 04-18-19 [facility] Repository (1 source) Penicillins Drug allergy (disorder) 04-18-19 [facility] Repository (1 source) traMADol Drug Allergy 04-18-19 [facility] Repository Medications Current Medications Medication Drug [...] 30 tablet 11 12/01/2019 05/11/2023 Discontinued amylase 504618 unt / lipase 57388 unt / protease 67090 unt delayed release oral capsule (18 sources) Start: 05-11-2023 take 3 capsules by mouth twice daily at mealtime Pancreatic enzymes (Creon) 7[address] Particles capsule Take 3 capsules by mouth 2 times daily with meals. 180 capsule 11 05/11/2023 Active Start: 12-16-2021 End: 05-11-2023 take 2 capsules by mouth three times daily at mealtime Pancreatic enzymes (Creon) [address] Particles capsule Take 2 [...] by mouth every week Ergocalciferol 1.25 MG (56653 UT) capsule Take 1 capsule by mouth once a week. 8 capsule 05/11/2023 Active Start: 01-28-2022 End: 03-19-2022 take 1 capsule by mouth every week ergocalciferol 1.25 MG (30488 UT) capsule Take 1 capsule by mouth [...] mg by mouth daily . 0 Active Perla (No Known Home Meds) (1 source) Start: 10-09-2021 Perla (No Known Home Meds) Active October 09, [...] injecti on 4 mg polyethylene glycol 3350 94596 mg powder for oral solution (1 source) [...] fracture] Chronic Other aftercare (1 source) Other residential (current) drug therapy; Translations: [OTH CUSTOM APPLICATOR CURRENT DRUG THERAPY] Onset: 3 Episodic Other [...] 09-29-2023 Abs. Basophil 0.05 k/uL Normal 0.00-0.20 [facility] Comment on above: Performed By: #### C P, CDP, LIP #### [address] [place] [address] Custodial Manager: Ion Jasso MD Abs.Imm.Granulocyte <0.03 Normal 0.00-0.30 [facility] Comment on above: Performed By: #### C P, CDP, LIP #### [address] [place] [address] Custodial Manager: Ion Jasos MD Abs.Neutrophil (Seg) 8.10 k/uL Normal 1.50-8.10 [facility] Comment on above: Performed By: #### C P, CDP, LIP #### [address] [place] [address] Custodial Manager: Ion Jasso MD Basophils/100 WBC (Bld) 0 % Normal 0-2 [facility] Comment on above: Performed By: #### C P, CDP, LIP #### [address] [place], [place] [address] Custodial Manager: Ion Jasso MD Eosinophils (Bld) [#/Vol] 0.05 10*3/uL Normal 0.00-0.44 [facility] Comment on above: Performed By: #### C P, CDP, LIP #### [address] [place], [facility] Custodial Manager: Ion Jasso MD Eosinophils/100 WBC (Bld) 0 % Low 1-4 [facility] Comment on above: Performed By: #### C P, CDP, LIP #### [address] [place] [id number] Custodial Manager: Ion Jasso MD Erythrocyte distribution width (RBC) [Ratio] 12.9 % Normal 11.8-14.4 [facility] Comment on above: Performed By: #### C P, CDP, LIP #### [facility] [address] [place] [address] Custodial Manager: Ion Jasso MD Hematocrit (Bld) [Volume fraction] 40.3 % Normal 36.3-47.1 [facility] Comment on above: Performed By: #### C P, CDP, LIP #### [facility] [address] [place] [address] Custodial Manager: Ion Jasso MD Hemoglobin (Bld) [Mass/Vol] 14.2 g/dL Normal 11.9-15.1 [facility] Comment on above: Performed By: #### C P, CDP, LIP #### [address] [place] [id number] Custodial Manager: Ion Jasso MD Immature granulocytes/100 WBC (Bld) 0 % Normal 0 [facility] Comment on above: Performed By: #### C P, CDP, LIP #### [address] [place] [address] Custodial Manager: Ion Jasso MD Lymphocytes (Bld) [#/Vol] 2.18 10*3/uL Normal 1.10-3.70 [facility] Comment on above: Performed By: #### C P, CDP, LIP #### [facility] [address] [place], [facility] Custodial Manager: Ion Jasso MD Lymphocytes/100 WBC (Bld) 19 % Low 24-43 [facility] Comment on above: Performed By: #### C P, CDP, LIP #### [facility] [address] [place] [address] Custodial Manager: Ion Jasso MD MCH (RBC) [Entitic mass] 33.8 pg High 25.2-33.5 [facility] Comment on above: Performed By: #### C P, CDP, LIP #### [address] [place], [place] [address]83 Custodial Manager: Ion Jasso MD MCHC (RBC) [Mass/Vol] 35.2 g/dL High 28.4-34.8 [facility] Comment on above: Performed By: #### C P, CDP, LIP #### [address] [place], [facility] Custodial Manager: Ion Jasso MD MCV (RBC) [Entitic vol] 96.0 fL Normal 82.6-102.9 [facility] Comment on above: Performed By: #### C P, CDP, LIP #### [address] [place], [facility] Custodial Manager: Ion Jasso MD Monocytes (Bld) [#/Vol] 0.94 10*3/uL Normal 0.10-1.20 [facility] Comment on above: Performed By: #### C P, CDP, LIP #### [address] [place], [facility]83 Custodial Manager: Ion Jasso MD Monocytes/100 WBC (Bld) 8 % Normal 3-12 [facility] Comment on above: Performed By: #### C P, CDP, LIP #### [address] [place], [facility]83 Custodial Manager: Ion Jasso MD Neutrophil (Seg) 73 % High 36-65 [facility] Comment on above: Performed By: #### C P, CDP, LIP #### [address] [place] [address] Custodial Manager: Ion Jasso MD NRBC Automated 0.0 per 100 WBC Normal 0.0 [facility] Comment on above: Performed By: #### C P, CDP, LIP #### [address] [place], [facility]83 Custodial Manager: Ion Jasso MD Platelet mean volume (Bld) [Entitic vol] 9.4 fL Normal 8.1-13.5 [facility] Comment on above: Performed By: #### C P, CDP, LIP #### [facility] [address] [place], [facility]83 Custodial Manager: Ion Jasso MD Platelets (Bld) [#/Vol] 193 10*3/uL Normal 138-453 [facility] Comment on above: Performed By: #### C P, CDP, LIP #### [address] [place], [facility]83 Custodial Manager: Ion Jasso MD RBC (Bld) [#/Vol] 4.20 10*6/uL Normal 3.95-5.11 [facility] Comment on above: Performed By: #### C P, CDP, LIP #### [address] [place], [facility]83 Custodial Manager: Ion Jasso MD WBC (Bld) [#/Vol] 11.3 10*3/uL Normal 3.5-11.3 [facility] Comment on above: Performed By: #### C P, CDP, LIP #### [address] [place], [place] [address] Custodial Manager: Ion Jasso MD Comp Metabolic Profon 2023 Albumin [Mass/Vol] 4.4 g/dL Normal 3.5-5.2 [facility] Comment on above: Performed By: #### C P, CDP, LIP #### [facility] [address] [place] [address] Custodial Manager: Ion Jasso MD Albumin/Glob Ratio 1.9 Normal 1.0-2.5 [facility] Comment on above: Performed By: #### C P, CDP, LIP #### [facility] [address] [place], [place] 8[address]83 Custodial Manager: Ion Jasso MD Alkaline Phos 123 U/L High 35-104 [facility] Comment on above: Performed By: #### C P, CDP, LIP #### [facility] [address] [place], [place] [address]83 Custodial Manager: Ion Jasso MD ALT [Catalytic activity/Vol] 15 U/L Normal 5-33 [facility] Comment on above: Performed By: #### C P, CDP, LIP #### [facility] [address] [place], [place] [address] Custodial Manager: Ion Jasso MD Anion gap [Moles/Vol] 10 mmol/L Normal 9-17 [facility] Comment on above: Performed By: #### C P, CDP, LIP #### [facility] [address] [place], [place] [id number] Custodial Manager: Ion Jasso MD AST [Catalytic activity/Vol] 21 U/L Normal <32 [facility] Comment on above: Performed By: #### C P, CDP, LIP #### [address] [place], [place] 4855283 Custodial Manager: Ion Jasso MD Bilirubin [Mass/Vol] 0.3 mg/dL Normal 0.3-1.2 [facility] Comment on above: Performed By: #### C P, CDP, LIP #### [facility] [address] [place], [place] [address]83 Custodial Manager: Ion Jasso MD BUN/CRE Ratio 13 Normal 9-20 [facility] Comment on above: Performed By: #### C P, CDP, LIP #### [facility] [address] [place], [place] [address]83 Custodial Manager: Ion Jasso MD Calcium [Mass/Vol] 10.0 mg/dL Normal 8.6-10.4 [facility] Comment on above: Performed By: #### C P, CDP, LIP #### [facility] [address] [place], [place] [address]83 Custodial Manager: Ion Jasso MD Chloride [Moles/Vol] 104 mmol/L Normal 98-107 [facility] Comment on above: Performed By: #### C P, CDP, LIP #### [facility] [address] [place], [place] [id number] Custodial Manager: Ion Jasso MD CO2 [Moles/Vol] 24 mmol/L Normal 20-31 [facility] Comment on above: Performed By: #### C P, CDP, LIP #### [facility] [address] [place], [place] [address] Custodial Manager: Ion Jasso MD Creatinine [Mass/Vol] 0.8 mg/dL Normal 0.5-0.9 [facility] Comment on above: Performed By: #### C P, CDP, LIP #### [facility] [address] [place] [address] Custodial Manager: Ion Jasso MD GFR/1.73 sq M.predicted among non-blacks MDRD (S/P/Bld) [Vol rate/Area] 88 mL/min/{1.73_m2} Normal >60 [facility] Comment on above: Result Comment: These [...] By: #### C P, CDP, LIP #### [facility] [address] [place] [address] Custodial Manager: Ion Jasso MD Glucose [Mass/Vol] 126 mg/dL High 70-99 [facility] Comment on above: Performed By: #### C P, CDP, LIP #### [facility] [address] [place] [address] Custodial Manager: Ion Jasso MD Potassium [Moles/Vol] 3.5 mmol/L Low 3.7-5.3 [facility] Comment on above: Performed By: #### C P, CDP, LIP #### [facility] [address] [place], [place] 8456[address] Custodial Manager: Ion Jasso MD Protein [Mass/Vol] 6.7 g/dL Normal 6.4-8.3 [facility] Comment on above: Performed By: #### C P, CDP, LIP #### [address] [place], [place] [address]783 Custodial Manager: Ion Jasso MD Sodium [Moles/Vol] 138 mmol/L Normal 135-144 [facility] Comment on above: Performed By: #### C P, CDP, LIP #### [address] [place], [place] 487[address]83 Custodial Manager: Ion Jasso MD Urea nitrogen [Mass/Vol] 10 mg/dL Normal 6-20 [facility] Comment on above: Performed By: #### C P, CDP, LIP #### [facility] [address] [place] [address] Dr. [place], [place] [id number] Custodial Manager: Ion Jasso MD Lipaseon 0 Lipase [Catalytic activity/Vol] 141 U/L High 13-60 [facility] Comment on above: Performed By: #### C P, CDP, LIP #### [facility] [address] [place] [address] Custodial Manager: Ion Jasso MD UA w/Reflex Cultureon 2023 Bilirubin, SemiQt,Ur Negative Normal NEG [facility] Comment on above: Performed By: #### U AX, UMICAO #### [facility] [address] [place], [place] 5[address]83 Custodial Manager: Ion Jasso MD Blood, Urine Negative Normal NEG [facility] Comment on above: Performed By: #### U AX, UMICAO #### [facility] [address] [place], [place] 9[address]83 Custodial Manager: Ion Jasso MD Clarity (U) Clear Normal CLEAR [facility] Comment on above: Performed By: #### U AX, UMICAO #### [facility] [address] [place], [place] 6[address]683 Custodial Manager: Ion Jasso MD Color (U) Yellow Normal YEL [facility] Comment on above: Performed By: #### U AX, UMICAO #### [facility] [address] [place], [place] 148[address]83 Custodial Manager: Ion Jasso MD Glucose Ql (U) Negative Normal NEG [facility] Comment on above: Performed By: #### U AX, UMICAO #### [address] [place], [place] [id number] Custodial Manager: Ion Jasso MD Ketones Ql (U) Negative Normal NEG [facility] Comment on above: Performed By: #### U AX, UMICAO #### [facility] [address] [place], [place] 0[address]83 Custodial Manager: Ion Jasso MD Leukocyte esterase Test strip Ql (U) Negative Normal NEG [facility] Comment on above: Performed By: #### U AX, UMICAO #### [facility] [address] [place], [place] [address] Custodial Manager: Ion Jasso MD Nitrite,Ur Negative Normal NEG [facility] Comment on above: Performed By: #### U AX, UMICAO #### [facility] [address] [place], [place] 494[address]83 Custodial Manager: Ion Jasso MD PH,Ur 6.0 Normal 5.0-9.0 [facility] Comment on above: Performed By: #### U AX, UMICAO #### [facility] [address] [place], [place] 047[address]83 Custodial Manager: Ion Jasso MD Protein Ql (U) Negative Normal NEG [facility] Comment on above: Performed By: #### U AX, UMICAO #### [facility] [address] [place], [place] 7455[address] Custodial Manager: Ion Jasso MD Spec. [place],Ur >1.030 High 1.010-1.02 0 [facility] Comment on above: Performed By: #### U AX, UMICAO #### [facility] [address] [place] [address] Dr. [place], [place] [address]67[address]83 Custodial Manager: Ion Jasso MD Urobilinogen,Ur Normal Normal 0.0-1.0 [facility] Comment on above: Performed By: #### U AX, UMICAO #### [address] [place], [place] 26[address]283 Custodial Manager: Ion Jasso MD Urinalysis,Microon 4 Bacteria TRACE Abnormal NONE [facility] Comment on above: Performed By: #### U AX, UMICAO #### [facility] [address] [place], [place] 160[address] Custodial Manager: Ion Jasso MD Epithelial cells LM Ql (Urine sed) 2 TO 5 Normal 0-25 [facility] Comment on above: Performed By: #### U AX, UMICAO #### [facility] [address] [place], [place] 2858783 Custodial Manager: Ion Jasso MD Urine RBC's 0 TO 2 Normal 0-2 [facility] Comment on above: Performed By: #### U AX, UMICAO #### [facility] [address] [place] [address] Custodial Manager: Ion Jasso MD Urine WBC's 0 TO 2 Normal 0-5 [facility] Comment on above: Performed By: #### U AX, UMICAO #### [facility] [address] [place] [address] Custodial Manager: Ion Jasso MD UPPER EUSon 09-08-2023 [facility] Gastroenterology Patient Name: Chioma Rainey Procedure Date: 09/08/2023 7:35 AM Date of : 1970 Admit Type: Outpatient Age: 53 Room: EUS Proc Room 01 Gender: Female Note Status: Finalized Attending MD: Sabrina Dee MD, MPH, [id number] Procedure: Upper EUS Indications: Chronic pancreatitis, Celiac [...] the (more content not included)... LAB, [facility] Radiology Study observation (narrative) [facility] Alanine aminotransferase [En zymatic activity/volume] in Serum or PlasmaOrdered By: Xiang Kellogg on 04-18-2023 ALT [Catalytic activity/Vol] 9 U/L Normal 7-52 [facility] Comment on above: Performed By: #### L IPASE, CBC, CMP, HS TROP #### [facility] [address] [place] [address] Albumin [Mass/volume] in Ser um or Plasma by Bromocresol green (BCG) dye binding methoOrdered By: Xiang Kellogg on 04-18-2023 Albumin BCG dye [Mass/Vol] 4.5 g/dL 3.5-5.7 [facility] Alkaline phosphatase [Enzyma tic activity/volume] in Serum or PlasmaOrdered By: Xiang Kellogg on 04-18-2023 ALP [Catalytic activity/Vol] 107 U/L High 34-104 [facility] Comment on above: Performed By: #### L IPASE, CBC, CMP, HS TROP #### [address] Amylase [Enzymatic activity/ volume] in Serum or PlasmaOrdered By: Xiang Kellogg on 04-18-2023 Amylase [Catalytic activity/Vol] 72 U/L Normal 29-103 [facility] Comment on above: Performed By: #### L IPASE, CBC, CMP, HS TROP #### [address] Aspartate aminotransferase [ Enzymatic activity/volume] in Serum or PlasmaOrdered By: Xiang Kellogg on 04-18-2023 AST [Catalytic activity/Vol] 14 U/L Normal 13-39 [facility] Comment on above: Performed By: #### L IPASE, CBC, CMP, HS TROP #### [address] Automated basophil %Ordered By: Xiang Kellogg on 04-18-2023 Basophils/100 WBC (Bld) 0.8 % Normal . [facility] Comment on above: Performed By: #### L IPASE, CBC, CMP, HS TROP #### [facility] [address] [place] [address] Automated basophil countOrde red By: Xiang Kellogg on 04-18-2023 Basophils (Bld) [#/Vol] 0.1 10*3/uL Normal 0.0-0.2 [facility] Comment on above: Result Comment: PERF ORMED BY: [address] [address] PATHOLOGIST PHONE SPECIALIST PAULA RODRIGUES M.D. Performed By: #### L IPASE, CBC, CMP, HS TROP #### [address] Automated blood monocyte cou ntOrdered By: Xiang Kellogg on 04-18-2023 Monocytes (Bld) [#/Vol] 0.6 10*3/uL Normal 0.0-0.8 [facility] Comment on above: Performed By: #### L IPASE, CBC, CMP, HS TROP #### [address] Automated eosinophil %Ordere d By: Xiang Kellogg on 04-18-2023 Eosinophils/100 WBC (Bld) 0.2 % Normal . [facility] Comment on above: Performed By: #### L IPASE, CBC, CMP, HS TROP #### [address] Automated eosinophil countOr dered By: Xiang Kellogg on 04-18-2023 Eosinophils (Bld) [#/Vol] 0.0 10*3/uL Normal 0.0-0.45 [facility] Comment on above: Performed By: #### L IPASE, CBC, CMP, HS TROP #### [address] Automated monocyte %Ordered By: Xiang Kellogg on 04-18-2023 Monocytes/100 WBC (Bld) 5.4 % Normal . [facility] Comment on above: Performed By: #### L IPASE, CBC, CMP, HS TROP #### [address] Automated neutrophil %Ordere d By: Xiang Kellogg on 04-18-2023 Neutrophils/100 WBC (Bld) 80.8 % Normal . [facility] Comment on above: Performed By: #### L IPASE, CBC, CMP, HS TROP #### [address] Basic Metabolic Panelon 04-09 Creatinine Clr Calc Pharmacy 64.32 Normal [facility] Comment on above: Performed By: #### L IPASE, CBC, CMP, HS TROP #### [facility] [address] [place] [address] GFR/1.73 sq M.predicted MDRD (S/P/Bld) [Vol rate/Area] mL/min/{1.73_m2} Normal [facility] Comment on above: Performed By: #### L IPASE, CBC, CMP, HS TROP #### [facility] [address] [place] [address] Bilirubin.direct [Mass/volum e] in Serum or PlasmaOrdered By: Xiang Kellogg on 04-18-2023 Bilirubin.direct [Mass/Vol] 0.00 mg/dL 0.03-0.18 [facility] Comment on above: If the DBIL is less than 0.1, IBIL is not able to becalculated. Bilirubin.total [Mass/volume ] in Serum or PlasmaOrdered By: Xiang Kellogg on 04-18-2023 Bilirubin [Mass/Vol] 0.3 mg/dL Normal 0.3-1.0 [facility] Comment on above: Performed By: #### L IPASE, CBC, CMP, HS TROP #### [facility] [address] [place] [address] CT abdomen pelvis wo conon 0 04-18-2023 CT abdomen pelvis wo con [facility] [place] [address] [place] [address] CT Scan Report Signed Patient: Chioma Arciniega MR#: [id number] : 1970 Acct:[id number] Age/Sex: 52 / F ADM Date: 04/18/23 Loc: ER Room: Type: [facility] ER Attending Dr: Copies to: Xiang Kellogg [...] Rajeev Ulloa M.D.04/18/2023 5:07 PM Dictation Location: [place] [address] Transcribed By: [facility] 04/18/231706 Dictated By: Rajeev Ulloa II, MD 04/18/231700 Signed By: 04/18/231706 Normal [facility] Calcium [Mass/volume] in Ser um or PlasmaOrdered By: Xiang Kellogg on 04-18-2023 Calcium [Mass/Vol] 11.1 mg/dL High 8.6-10.3 [facility] Comment on above: Performed By: #### L IPASE, CBC, CMP, HS TROP #### [address] Carbon dioxide, total [Moles /volume] in Serum or PlasmaOrdered By: Xiang Kellogg on 04-18-2023 CO2 [Moles/Vol] 30.2 mmol/L Normal 21.0-31.[address] [facility] Comment on above: Performed By: #### L IPASE, CBC, CMP, HS TROP #### [address] Chloride [Moles/volume] in S erika or PlasmaOrdered By: Xiang Kellogg on 04-18-2023 Chloride [Moles/Vol] 103 mmol/L Normal 98-107 [facility] Comment on above: Performed By: #### L IPASE, CBC, CMP, HS TROP #### [address] Complete Blood Count Auto Di ffon 04-18-2023 Mean Corpuscular HGB Conc 34.3 g/dL Normal 32.0-35.0 [facility] Comment on above: Performed By: #### L IPASE, CBC, CMP, HS TROP #### [address] Monocytes/100 WBC (Bld) 16.25 % Normal 0.00-20.00 [facility] Comment on above: Performed By: #### L IPASE, CBC, CMP, HS TROP #### [address] NRBC% 0.0 /100{WBC} Normal 0-0.5 [facility] Comment on above: Performed By: #### L IPASE, CBC, CMP, HS TROP #### [address] Creatinine [Mass/volume] in Serum or PlasmaOrdered By: Xiang Kellogg on 04-18-2023 Creatinine [Mass/Vol] 0.80 mg/dL Normal 0.60-1.20 [facility] Comment on above: Performed By: #### L IPASE, CBC, CMP, HS TROP #### [address] Erythrocyte distribution wid th [Ratio] by Automated countOrdered By: Xiang Kellogg on 04-18-2023 Erythrocyte distribution width (RBC) [Ratio] 13.4 % Normal 11.9-15.3 [facility] Comment on above: Performed By: #### L IPASE, CBC, CMP, HS TROP #### [facility] [address] [place] [address] [place] Erythrocytes [#/volume] in B lood by Automated countOrdered By: Xiang Kellogg on 04-18-2023 RBC (Bld) [#/Vol] 4.35 10*6/uL Normal 3.60-5.00 [facility] Comment on above: Performed By: #### L IPASE, CBC, CMP, HS TROP #### [facility] [address] [place] [address] [place] Ethanol [Mass/volume] in Ser um or PlasmaOrdered By: Xiang Kellogg on 04-18-2023 Ethanol [Mass/Vol] mg/dL Normal [facility] Comment on above: Performed By: #### L IPASE, CBC, CMP, HS TROP #### [facility] [address] [place] [address] Ethanol [Mass/Vol] TNP [facility] Comment on above: Test not performed Ethyl Alcohol Profileon 04-09 Percent Ethanol Not performed Normal [facility] Comment on above: Result Comment: PERF ORMED BY: [place] [address] PATHOLOGIST PHONE SPECIALIST PAULA RODRIGUES M.D. Performed By: #### L IPASE, CBC, CMP, HS TROP #### [facility] [address] [place] [address] [place] Glucose [Mass/volume] in Ser um or PlasmaOrdered By: Xiang Kellogg on 04-18-2023 Glucose [Mass/Vol] 108 mg/dL High 70-100 [facility] Comment on above: ADA recommended refe rence rangeRandom Glucose Reference Range is dependent on time and content of last meal. Glucose of more than 200 mg/dL in a nonstressed, ambulatory subject supports the diagnosis of Diabetes Mellitus. Result Comment: Supply om Glucose Reference Range is dependent on time and content of last meal. Glucose of more than 200 mg/dL in a nonstressed, ambulatory subject supports the diagnosis of Diabetes Mellitus. ADA recommended reference range Performed By: #### L IPASE, CBC, CMP, HS TROP #### [address] Hematocrit [Volume Fraction] of Blood by Automated countOrdered By: Xiang Kellogg on 04-18-2023 Hematocrit (Bld) [Volume fraction] 41.6 % Normal 34.0-46.4 [facility] Comment on above: Performed By: #### L IPASE, CBC, CMP, HS TROP #### [address] Hemoglobin [Mass/volume] in BloodOrdered By: Xiang Kellogg on 04-18-2023 Hemoglobin (Bld) [Mass/Vol] 14.3 g/dL Normal 11.8-15.4 [facility] Comment on above: Performed By: #### L IPASE, CBC, CMP, HS TROP #### [address] Hepatic Panelon 04-18-2023 Albumin [Mass/Vol] 4.5 g/dL Normal 3.5-5.7 [facility] Comment on above: Performed By: #### L IPASE, CBC, CMP, HS TROP #### [address] Bilirubin,Indirect 0.3 mg/dL Normal [facility] Comment on above: Performed By: #### L IPASE, CBC, CMP, HS TROP #### [address] Bilirubin.indirect [Mass/Vol] 0.00 mg/dL Low 0.03-0.18 [facility] Comment on above: Result Comment: If t he DBIL is less than 0.1, IBIL is not able to be calculated. Performed By: #### L IPASE, CBC, CMP, HS TROP #### [address] Leukocytes [#/volume] correc aurelia for nucleated erythrocytes in Blood by Automated counOrdered By: Xiang Kellogg on 04-18-2023 WBC corrected for nucl RBC Auto (Bld) [#/Vol] 12.1 10*3/uL 3.8-11.6 [facility] Leukocytes [#/volume] in Blo od by Automated countOrdered By: Xiang Kellogg on 04-18-2023 WBC (Bld) [#/Vol] 12.1 10*3/uL High 3.8-11.6 [facility] Comment on above: Performed By: #### L IPASE, CBC, CMP, HS TROP #### [place] [address] [place] Lipase [Enzymatic activity/v olume] in Serum or PlasmaOrdered By: Xiang Kellogg on 04-18-2023 Lipase [Catalytic activity/Vol] 47.0 U/L Normal 11.0-82.0 [facility] Comment on above: Result Comment: PERF ORMED BY: [place] [address] PATHOLOGIST PHONE SPECIALIST PAULA RODRIGUES M.D. Performed By: #### L IPASE, CBC, CMP, HS TROP #### [place] [address] [place] Lymphocytes [#/volume] in Bl ood by Automated countOrdered By: Xiang Kellogg on 04-18-2023 Lymphocytes (Bld) [#/Vol] 1.6 10*3/uL Normal 1.00-4.8 [facility] Comment on above: Performed By: #### L IPASE, CBC, CMP, HS TROP #### [place] [address] [place] Lymphocytes/100 leukocytes i n Blood by Automated countOrdered By: Xiang Kellogg on 04-18-2023 Lymphocytes/100 WBC (Bld) 12.8 % Normal . [facility] Comment on above: Performed By: #### L IPASE, CBC, CMP, HS TROP #### [place] [address] [place] MCH [Entitic mass] by Automa aurelia countOrdered By: Xiang Kellogg on 04-18-2023 MCH (RBC) [Entitic mass] 32.7 pg Normal 24.7-34.3 [facility] Comment on above: Performed By: #### L IPASE, CBC, CMP, HS TROP #### [facility] [address] MCHC Auto (RBC) [Mass/Vol]Or dered By: Xiang Kellogg on 04-18-2023 MCHC (RBC) [Mass/Vol] 34.3 g/dL 32.0-35.0 [facility] MCV [Entitic volume] by Auto mated countOrdered By: Xiang Kellogg on 04-18-2023 MCV (RBC) [Entitic vol] 95.5 fL Normal 80-100 [facility] Comment on above: Performed By: #### L IPASE, CBC, CMP, HS TROP #### [facility] [address] [place] [address] Monocyte distribution width [Entitic volume] in Blood by AutomatedOrdered By: Xiang Kellogg on 04-18-2023 Monocyte distribution width Auto (Bld) [Entitic vol] 16.25 % 0.00-20.00 [facility] Neutrophils [#/volume] in Bl ood by Automated countOrdered By: Xiang Kellogg on 04-18-2023 Neutrophils (Bld) [#/Vol] 9.8 10*3/uL High 1.8-7.7 [facility] Comment on above: Performed By: #### L IPASE, CBC, CMP, HS TROP #### [facility] [address] [place] [address] No Panel InformationOrdered By: Xiang Kellogg on 04-18-2023 Estimated GFR (CKD-EPI) > 60.0 mL/Min [facility] Creatinine Clearance (Chem 64.32 [facility] Nucleated erythrocytes [Pres ence] in Blood by Automated countOrdered By: Xiang Kellogg on 04-18-2023 Nucleated RBC Auto Ql (Bld) 0.0 /100{WBC} 0-0.5 [facility] Platelet mean volume [Entiti c volume] in Blood by Automated countOrdered By: Xiang Kellogg on 04-18-2023 Platelet mean volume (Bld) [Entitic vol] 8.1 fL Normal 6.3-10.7 [facility] Comment on above: Performed By: #### L IPASE, CBC, CMP, HS TROP #### [facility] [address] [place] [address] Platelets [#/volume] in Bloo d by Automated countOrdered By: Xiang Kellogg on 04-18-2023 Platelets (Bld) [#/Vol] 227 10*3/uL Normal 150-450 [facility] Comment on above: Performed By: #### L IPASE, CBC, CMP, HS TROP #### [facility] [address] [place] [address] Potassium [Moles/volume] in Serum or PlasmaOrdered By: Xiang Kellogg on 04-18-2023 Potassium [Moles/Vol] 3.2 mmol/L Low 3.5-5.1 [facility] Comment on above: Performed By: #### L IPASE, CBC, CMP, HS TROP #### [address] Protein [Mass/volume] in Ser um or PlasmaOrdered By: Xiang Kellogg on 04-18-2023 Protein [Mass/Vol] 6.7 g/dL Normal 6.4-8.9 [facility] Comment on above: Performed By: #### L IPASE, CBC, CMP, HS TROP #### [address] Serum globulin measurement b y calculation (mass/volume)Ordered By: Xiang Kellogg on 04-18-2023 Globulin (S) [Mass/Vol] 2.2 g/dL [facility] Comment on above: Performed By: #### L IPASE, CBC, CMP, HS TROP #### [facility] [address] [place] [address] Serum or plasma albumin/glob ulin mass ratioOrdered By: Xiang Kellogg on 04-18-2023 Albumin/Globulin [Mass ratio] 2.0 {ratio} [facility] Comment on above: Performed By: #### L IPASE, CBC, CMP, HS TROP #### [address] Serum or plasma anion gap de terminationOrdered By: Xiang Kellogg on 04-18-2023 Anion gap [Moles/Vol] 10.0 mmol/L Normal 6.0-15.0 [facility] Comment on above: Performed By: #### L IPASE, CBC, CMP, HS TROP #### [facility] [address] [place] [address] Serum or plasma non-glucuron idated bilirubin measurement (mass/volume)Ordered By: Xiang Kellogg on 04-18-2023 Bilirubin.indirect [Mass/Vol] 0.3 mg/dL [facility] Sodium [Moles/volume] in Ser um or PlasmaOrdered By: Xiang Kellogg on 04-18-2023 Sodium [Moles/Vol] 140 mmol/L Normal 136-145 [facility] Comment on above: Performed By: #### L IPASE, CBC, CMP, HS TROP #### [facility] [address] [place] [address] Urea nitrogen [Mass/volume] in Serum or PlasmaOrdered By: Xiang Kellogg on 04-18-2023 Urea nitrogen [Mass/Vol] 7 mg/dL Normal 7-25 [facility] Comment on above: Performed By: #### L IPASE, CBC, CMP, HS TROP #### [facility] [address] [place] [address] CT abdomen pelvis w conon CT abdomen pelvis w con [facility] [place] [address] CT Scan Report Signed Patient: Chioma Arciniega MR#: [id number] : 1970 Acct:[id number] Age/Sex: 52 / F ADM Date: 04/11/23 Loc: ER Room: Type: [facility] ER Attending Dr: Copies to: Rivera [...] Nai Salazar M.D.04/12/2023 9:01 AM Dictation Location: [place] [address] Transcribed By: [facility] 04/12/23 0901 Dictated By: Nai Salazar MD 04/12/23 0856 Signed By: 04/12/23 0901 Normal [facility] Activated partial thrombopla stin time (aPTT) in platelet poor plasma by coagulation aOrdered By: Rivera Lopez on 04-11-2023 aPTT Coag (PPP) [Time] 23.3 s 25.1-36.5 [facility] Comment on above: A hematocrit value g reater than 55% may lead to inaccurate results in coagulation testing. Patients having hematocrit values >55% require a special collection tube for coagulation studies. Please contact the laboratory at [phone] for redraw instructions. Alanine aminotransferase [En zymatic activity/volume] in Serum or PlasmaOrdered By: Rivera Lopez on 04-11-2023 ALT [Catalytic activity/Vol] 13 U/L Normal 7-52 [facility] Comment on above: Performed By: #### L IPASE, CBC, CMP, HS TROP #### [facility] [address] [place] [address] Albumin [Mass/volume] in Ser um or Plasma by Bromocresol green (BCG) dye binding methoOrdered By: Rivera Lopez on 04-11-2023 Albumin BCG dye [Mass/Vol] 4.5 g/dL 3.5-5.7 [facility] Alkaline phosphatase [Enzyma tic activity/volume] in Serum or PlasmaOrdered By: Rivera Lopez on 04-11-2023 ALP [Catalytic activity/Vol] 111 U/L High 34-104 [facility] Comment on above: Performed By: #### L IPASE, CBC, CMP, HS TROP #### [address] Aspartate aminotransferase [ Enzymatic activity/volume] in Serum or PlasmaOrdered By: Rivera Lopez on 04-11-2023 AST [Catalytic activity/Vol] 17 U/L Normal 13-39 [facility] Comment on above: Performed By: #### L IPASE, CBC, CMP, HS TROP #### [facility] [address] [place] [address] Automated basophil %Ordered By: Rivera Lopez on 04-11-2023 Basophils/100 WBC (Bld) 0.4 % Normal . [facility] Comment on above: Performed By: #### L IPASE, CBC, CMP, HS TROP #### [facility] [address] [place] [address] Automated basophil countOrde red By: Rivera Lopez on 04-11-2023 Basophils (Bld) [#/Vol] 0.1 10*3/uL Normal 0.0-0.2 [facility] Comment on above: Result Comment: PERF ORMED BY: [place] [address] PATHOLOGIST PHONE SPECIALIST PAULA RODRIGUES M.D. Performed By: #### L IPASE, CBC, CMP, HS TROP #### [facility] [address] [place] [address] Automated blood monocyte cou ntOrdered By: Rivera Lopez on 04-11-2023 Monocytes (Bld) [#/Vol] 0.6 10*3/uL Normal 0.0-0.8 [facility] Comment on above: Performed By: #### L IPASE, CBC, CMP, HS TROP #### [facility] [address] [place] [address] Automated eosinophil %Ordere d By: Rivera Lopez on 04-11-2023 Eosinophils/100 WBC (Bld) 0.0 % Normal . [facility] Comment on above: Performed By: #### L IPASE, CBC, CMP, HS TROP #### [facility] [address] [place] [address] Automated eosinophil countOr dered By: Rivera Lopez on 04-11-2023 Eosinophils (Bld) [#/Vol] 0.0 10*3/uL Normal 0.0-0.45 [facility] Comment on above: Performed By: #### L IPASE, CBC, CMP, HS TROP #### [address] Automated erythrocytes count in urine sediment (number/area)Ordered By: Rivera Lopez on 04-11-2023 RBC Auto (Urine sed) [#/Area] 0-1 [HPF] 0-4 [facility] Automated leukocytes count i n urine sediment (number/area)Ordered By: Rivera Lopez on 04-11-2023 WBC Auto (Urine sed) [#/Area] 3-4 [HPF] 0-4 [facility] Automated monocyte %Ordered By: Rivera Lopez on 04-11-2023 Monocytes/100 WBC (Bld) 4.3 % Normal . [facility] Comment on above: Performed By: #### L IPASE, CBC, CMP, HS TROP #### [facility] [address] [place] [address] Automated neutrophil %Ordere d By: Rivera Lopez on 04-11-2023 Neutrophils/100 WBC (Bld) 87.2 % Normal . [facility] Comment on above: Performed By: #### L IPASE, CBC, CMP, HS TROP #### [facility] [address] Automated urine color determ inationOrdered By: Rivera Lopez on 04-11-2023 Color (U) Yellow Normal Yellow [facility] Comment on above: Order Comment: Name Collection Type:: Clean-Voided Midstream Performed By: #### L IPASE, CBC, CMP, HS TROP #### [facility] [address] Basic Metabolic Panelon Creatinine Clr Calc Pharmacy 59.83 Normal [facility] Comment on above: Performed By: #### L IPASE, CBC, CMP, HS TROP #### [address] GFR/1.73 sq M.predicted MDRD (S/P/Bld) [Vol rate/Area] mL/min/{1.73_m2} Normal [facility] Comment on above: Performed By: #### L IPASE, CBC, CMP, HS TROP #### [address] Bilirubin Test strip Ql (U)O rdered By: Rivera Lopez on 04-11-2023 Bilirubin Ql (U) Negative Negative [facility] Bilirubin.direct [Mass/volum e] in Serum or PlasmaOrdered By: Rivera Lopez on 04-11-2023 Bilirubin.direct [Mass/Vol] 0.00 mg/dL 0.03-0.18 [facility] Comment on above: If the DBIL is less than 0.1, IBIL is not able to becalculated. Bilirubin.total [Mass/volume ] in Serum or PlasmaOrdered By: Rivera Lopez on 04-11-2023 Bilirubin [Mass/Vol] 0.3 mg/dL Normal 0.3-1.0 [facility] Comment on above: Performed By: #### L IPASE, CBC, CMP, HS TROP #### [facility] [address] [place] [address] CBC AND AUTO DIFFon 04-11-19 ABSOLUTE BASOPHIL 0.1 X10E9/L Normal 0.0-0.2 [facility] Comment on above: Performed By: #### C BONNIE NIEVES, 3039-05, #### [facility] ([id number]) [address] [place] [address] ABSOLUTE NEUTROPHIL 12.5 X10E9/L High 1.5-6.6 [facility] Comment on above: Performed By: #### C BONNIE NIEVES, 3039-05, #### [facility] ([id number]) [address] [place] [address] Basophils/100 WBC (Bld) 0.4 % Normal [facility] Comment on above: Performed By: #### C BONNIE NIVEES, 3039-05, #### [facility] ([id number]) [address] [place] [address] Eosinophils (Bld) [#/Vol] 0.1 10*3/uL Normal 0.0-0.4 [facility] Comment on above: Performed By: #### C BONNIE NIEVES, 3039-05, #### [facility] ([id number]) [address] [place] [address] Eosinophils/100 WBC (Bld) 0.5 % Normal [facility] Comment on above: Performed By: #### C BONNIE NIEVES, 3039-05, #### [facility] ([id number]) [address] [place] [address] Erythrocyte distribution width (RBC) [Ratio] 13.2 % Normal 11.5-15.0 [facility] Comment on above: Performed By: #### C BONNIE NIEVES, 3039-05, #### [facility] ([id number]) [address] [place] [address] Hematocrit (Bld) [Volume fraction] 44.6 % Normal 35-47 [facility] Comment on above: Performed By: #### C BONNIE NIEVES, 3039-05, #### [facility] ([id number]) [address] [place] [address] Hemoglobin (Bld) [Mass/Vol] 15.2 g/dL Normal 11.7-15.5 [facility] Comment on above: Performed By: #### Clara NIEVES CMP, 3039-05, #### [facility] ([id number]) [address] [place] [address] Lymphocytes (Bld) [#/Vol] 1.3 10*3/uL Normal 1.0-3.5 [facility] Comment on above: Performed By: #### Clara NIEVES CMP, 3039-05, #### [facility] ([id number]) [address] [place] [address] Lymphocytes/100 WBC (Bld) 8.7 % Normal [facility] Comment on above: Performed By: #### Clara NIEVES [facility], 3039-05, #### [facility] ([id number]) [address] [place] [address] 12893 MCH (RBC) [Entitic mass] 32.8 pg Normal 27-34 [facility] Comment on above: Performed By: #### Clara NIEVES CMP, 3039-05, #### [facility] ([id number]) [address] [place] [address] 91147 MCHC (RBC) [Mass/Vol] 34.1 g/dL Normal 32-36 [facility] Comment on above: Performed By: #### Clara NIEVES CMP, 3039-05, #### [facility] ([id number]) [address] [place] [address] 85009 MCV (RBC) [Entitic vol] 96 fL Normal 80-100 [facility] Comment on above: Performed By: #### Clara NIEVES, CMP, 3, #### [facility] ([id number]) [address] [place] [address] 84447 Monocytes (Bld) [#/Vol] 0.7 10*3/uL Normal 0-0.9 [facility] Comment on above: Performed By: #### Clara NIEVES, CMP, 3039-05, #### [facility] ([id number]) [address] [place] [address] 41409 Monocytes/100 WBC (Bld) 4.5 % Normal [facility] Comment on above: Performed By: #### Clara NIEVES, CMP, 3039-05, #### [facility] ([id number]) [address] [place] [address] 82297 Neutrophils/100 WBC (Bld) 85.9 % Normal [facility] Comment on above: Performed By: #### Clara NIEVES, CMP, 3039-05, #### [facility] ([id number]) [address] [place] [address] 08960 Platelet mean volume (Bld) [Entitic vol] 7.5 fL Normal 7-12 [facility] Comment on above: Performed By: #### Clara NIEVES, CMP, 3039-05, #### [facility] ([id number]) [address] [place] [address] 39270 Platelets (Bld) [#/Vol] 307 10*3/uL Normal 150-450 [facility] Comment on above: Performed By: #### Clara NIEVES, CMP, 3, #### [facility] ([id number]) [address] [place] [address] 03868 RBC COUNT 4.64 X10E12/L Normal 3.80-5.20 [facility] Comment on above: Performed By: #### C BCA, CMP, 0-3, #### [facility] ([id number]) [address] [place] [address] 32218 WBC (Bld) [#/Vol] 14.5 10*3/uL High 4.0-11.0 [facility] Comment on above: Performed By: #### C BCA, CMP, 3, #### [facility] ([id number]) [address] [place] [address] 14942 COMPREHENSIVE METABOLIC PANE Nimesh 04-11-2023 Albumin [Mass/Vol] 4.7 g/dL Normal 3.2-5.3 [facility] Comment on above: Performed By: #### C BCA, CMP, 3039-05, #### [facility] ([id number]) [address] [place] [address] 64979 ALP [Catalytic activity/Vol] 131 U/L High 39-130 [facility] Comment on above: Performed By: #### C BCA, CMP, 3039-05, #### [facility] ([id number]) [address] [place] [address] 10398 ALT [Catalytic activity/Vol] 18 U/L Normal 0-31 [facility] Comment on above: Performed By: #### C BCA, CMP, 3039-05, #### [facility] ([id number]) [address] [place] [address] 93839 Anion gap [Moles/Vol] 9 mmol/L Normal 5-15 [facility] Comment on above: Performed By: #### C BCA, CMP, 3, #### [facility] ([id number]) [address] [place] [address] 46420 AST [Catalytic activity/Vol] 23 U/L Normal 0-41 [facility] Comment on above: Performed By: #### C EZEQUIEL, CMP, 3039-05, #### [facility] ([id number]) [address] [place] [address] 47372 Bilirubin [Mass/Vol] 0.5 mg/dL Normal 0.3-1.[address] [facility] Comment on above: Performed By: #### C BCA, CMP, 3039-05, #### [facility] ([id number]) [address] [place] [address] 98459 Calcium [Mass/Vol] 11.4 mg/dL High 8.5-10.5 [facility] Comment on above: Performed By: #### C EZEQUIEL, CMP, 3039-05, #### [facility] ([id number]) [address] [place] [address] 86768 Chloride [Moles/Vol] 99 mmol/L Normal 98-[address] [facility] Comment on above: Performed By: #### C BCA, CMP, 3039-05, 65471-9 #### [facility] ([id number]) [address] [place] [address] 84551 CO2 [Moles/Vol] 28 mmol/L Normal 22-32 [facility] Comment on above: Performed By: #### C BCA, CMP, 3039-05, 52247-4 #### [facility] ([id number]) [address] [place] [address] 67360 Creatinine [Mass/Vol] 0.95 mg/dL Normal 0.40-1.00 [facility] Comment on above: Result Comment: METH OD TRACEABLE TO IDMS STANDARD Performed By: #### C EZEQUIEL, CMP, 3039-05, 90560-1 #### [facility] ([id number]) [address] [place] [address] [place] [address] GFR/1.73 sq M.predicted among non-blacks MDRD (S/P/Bld) [Vol rate/Area] 72 mL/min/{1.73_m2} Normal >59 [facility] Comment on above: Result Comment: Reported eGFR is based on the CKD-EPI 2020 equation that does not use a race coefficient. Performed By: #### C BONNIE NIEVES, 3039-05, #### [facility] ([id number]) [address] [place] [address] 89830 Glucose [Mass/Vol] 126 mg/dL High 65-99 [facility] Comment on above: Performed By: #### C BONNIE NIEVES, 3039-05, #### [facility] ([id number]) [address] [place] [address] 08017 Potassium [Moles/Vol] 3.2 mmol/L Low 3.5-5.0 [facility] Comment on above: Performed By: #### C EZEQUIEL [facility], 9 #### [facility] ([id number]) [address] [place] [address] 71237 Protein [Mass/Vol] 7.5 g/dL Normal 6.0-8.0 [facility] Comment on above: Performed By: #### C EZEQUIEL [facility], 3039-05, 25036-4 #### [facility] ([id number]) [address] [place] [address] 44722 Sodium [Moles/Vol] 136 mmol/L Normal 134-146 [facility] Comment on above: Performed By: #### C BONNIE NIEVES, 9 #### [facility] ([id number]) [address] [place] [address] 07196 Urea nitrogen [Mass/Vol] 6 mg/dL Normal 5-23 [facility] Comment on above: Performed By: #### C BCA, CMP, 3040-3, 67627-2 #### [facility] ([id number]) [address] [facility], [place] [address] CT ABDOMEN AND PELVIS W CONT on [...] Gentile MD on 04/11/2023 6:05 PM [facility] Calcium [Mass/volume] in Ser um or PlasmaOrdered By: Rivera Lopez on 04-11-2023 Calcium [Mass/Vol] 10.3 mg/dL Normal 8.6-10.3 [facility] Comment on above: Performed By: #### L IPASE, CBC, CMP, HS TROP #### [facility] [address] [place] [address] [facility] Carbon dioxide, total [Moles /volume] in Serum or PlasmaOrdered By: Rivera Lopez on 04-11-2023 CO2 [Moles/Vol] 26.9 mmol/L Normal 21.0-31.[address] [facility] Comment on above: Performed By: #### L IPASE, CBC, CMP, HS TROP #### [address] Chloride [Moles/volume] in S erika or PlasmaOrdered By: Rivera Lopez on 04-11-2023 Chloride [Moles/Vol] 103 mmol/L Normal 98-107 [facility] Comment on above: Performed By: #### L IPASE, CBC, CMP, HS TROP #### [address] Complete Blood Count Auto Di ffon 04-11-2023 Mean Corpuscular HGB Conc 33.2 g/dL Normal 32.0-35.0 [facility] Comment on above: Performed By: #### L IPASE, CBC, CMP, HS TROP #### [address] Monocytes/100 WBC (Bld) 17.01 % Normal 0.00-20.00 [facility] Comment on above: Performed By: #### L IPASE, CBC, CMP, HS TROP #### [address] NRBC% 0.0 /100{WBC} Normal 0-0.5 [facility] Comment on above: Performed By: #### L IPASE, CBC, CMP, HS TROP #### [address] Creatinine [Mass/volume] in Serum or PlasmaOrdered By: Rivera Lopez on 04-11-2023 Creatinine [Mass/Vol] 0.86 mg/dL Normal 0.60-1.20 [facility] Comment on above: Performed By: #### L IPASE, CBC, CMP, HS TROP #### [address] Dipstick and Microscopicon 0 04-11-2023 Appearance (U) Turbid Critically abnormal Clear [facility] Comment on above: Order Comment: Name Collection Type:: Clean-Voided Midstream Performed By: #### L IPASE, CBC, CMP, HS TROP #### [facility] [address] [place] [address] [place] Bacteria,Urine None Seen Normal None Seen [facility] Comment on above: Order Comment: Name Collection Type:: Clean-Voided Midstream Performed By: #### L IPASE, CBC, CMP, HS TROP #### [facility] [address] Bilirubin,Urine Negative Normal Negative [facility] Comment on above: Order Comment: Name Collection Type:: Clean-Voided Midstream Performed By: #### L IPASE, CBC, CMP, HS TROP #### [facility] [address] Glucose Ql (U) Normal Normal Normal [facility] Comment on above: Order Comment: Name Collection Type:: Clean-Voided Midstream Performed By: #### L IPASE, CBC, CMP, HS TROP #### [address] Hyaline Casts,Urine None Seen Normal 0-8 [facility] Comment on above: Order Comment: Name Collection Type:: Clean-Voided Midstream Result Comment: PERF ORMED BY: [place] [address] PATHOLOGIST PHONE SPECIALIST PAULA RODRIGUES M.D. Performed By: #### L IPASE, CBC, CMP, HS TROP #### [address] Ketones Ql (U) Negative Normal Negative [facility] Comment on above: Order Comment: Name Collection Type:: Clean-Voided Midstream Performed By: #### L IPASE, CBC, CMP, HS TROP #### [place] [address] [place] Leukocyte esterase Test strip Ql (U) Negative Normal Negative [facility] Comment on above: Order Comment: Name Collection Type:: Clean-Voided Midstream Performed By: #### L IPASE, CBC, CMP, HS TROP #### [place] [address] [place] Nitrite,Urine Negative Normal Negative [facility] Comment on above: Order Comment: Name Collection Type:: Clean-Voided Midstream Performed By: #### L IPASE, CBC, CMP, HS TROP #### [address] Occult Blood,Urine Negative Normal Negative [facility] Comment on above: Order Comment: Name Collection Type:: Clean-Voided Midstream Result Comment: PERF ORMED BY: [place] [address] PATHOLOGIST PHONE SPECIALIST PAULA RODRIGUES M.D. Performed By: #### L IPASE, CBC, CMP, HS TROP #### [address] Protein,Urine Negative Normal Negative [facility] Comment on above: Order Comment: Name Collection Type:: Clean-Voided Midstream Performed By: #### L IPASE, CBC, CMP, HS TROP #### [place] [address] [place] RBC LM.HPF (Urine sed) [#/Area] 0 /[HPF] Normal 0-4 [facility] Comment on above: Order Comment: Name Collection Type:: Clean-Voided Midstream Performed By: #### L IPASE, CBC, CMP, HS TROP #### [address] Specificy [place],Urine > 1.050 High 1.001-1.03 0 [facility] Comment on above: Order Comment: Name Collection Type:: Clean-Voided Midstream Performed By: #### L IPASE, CBC, CMP, HS TROP #### [place] [address] [place] Squamous Epithelial Cell,Urine 0-1 Normal 0-2 [facility] Comment on above: Order Comment: Name Collection Type:: Clean-Voided Midstream Performed By: #### L IPASE, CBC, CMP, HS TROP #### [address] Urobilinogen,Urine Normal Normal Normal [facility] Comment on above: Order Comment: Name Collection Type:: Clean-Voided Midstream Performed By: #### L IPASE, CBC, CMP, HS TROP #### [address] WBC,Urine 3-4 Normal 0-4 [facility] Comment on above: Order Comment: Name Collection Type:: Clean-Voided Midstream Performed By: #### L IPASE, CBC, CMP, HS TROP #### [address] ECG 12 lead ECGon 04-11-2023 ECG 12 lead ECG [facility] [place] [address] [place] [address] Electrocardiograph Report Signed Patient: Chioma Arciniega MR#: [id number] : 1970 Acct:[id number] Age/Sex: 52 / F ADM Date: 04/11/23 Loc: ER Room: Type: [facility] ER Attending Dr: Ordering Provider: Rivera Lopez [...] was found Confirmed by Rivera Lopez DO ([id number]) on 04/12/2023 12:05:50 AM Referred By: Electronically Signed By:Rivera Lopez DO Transcribed By: MUS Signed By Rivera Lopez DO 4 0005 Normal [facility] Erythrocyte distribution wid th [Ratio] by Automated countOrdered By: Rivera Lopez on 04-11-2023 Erythrocyte distribution width (RBC) [Ratio] 13.6 % Normal 11.9-15.3 [facility] Comment on above: Performed By: #### L IPASE, CBC, CMP, HS TROP #### [address] Erythrocytes [#/volume] in B lood by Automated countOrdered By: Rivera Lopez on 04-11-2023 RBC (Bld) [#/Vol] 4.27 10*6/uL Normal 3.60-5.00 [facility] Comment on above: Performed By: #### L IPASE, CBC, CMP, HS TROP #### [facility] [address] Glucose [Mass/volume] in Ser um or PlasmaOrdered By: Rivera Lopez on 04-11-2023 Glucose [Mass/Vol] 121 mg/dL High 70-100 [facility] Comment on above: ADA recommended refe rence rangeRandom Glucose Reference Range is dependent on time and content of last meal. Glucose of more than 200 mg/dL in a nonstressed, ambulatory subject supports the diagnosis of Diabetes Mellitus. Result Comment: Supply om Glucose Reference Range is dependent on time and content of last meal. Glucose of more than 200 mg/dL in a nonstressed, ambulatory subject supports the diagnosis of Diabetes Mellitus. ADA recommended reference range Performed By: #### L IPASE, CBC, CMP, HS TROP #### [address] Hematocrit [Volume Fraction] of Blood by Automated countOrdered By: Rivera Lopez on 04-11-2023 Hematocrit (Bld) [Volume fraction] 41.3 % Normal 34.0-46.4 [facility] Comment on above: Performed By: #### L IPASE, CBC, CMP, HS TROP #### [facility] [address] Hemoglobin [Mass/volume] in BloodOrdered By: Rivera Lopez on 04-11-2023 Hemoglobin (Bld) [Mass/Vol] 13.7 g/dL Normal 11.8-15.4 [facility] Comment on above: Performed By: #### L IPASE, CBC, CMP, HS TROP #### [facility] [address] Hepatic Panelon 04-11-2023 Albumin [Mass/Vol] 4.5 g/dL Normal 3.5-5.7 [facility] Comment on above: Performed By: #### L IPASE, CBC, CMP, HS TROP #### [facility] [address] Bilirubin,Indirect 0.3 mg/dL Normal [facility] Comment on above: Performed By: #### L IPASE, CBC, CMP, HS TROP #### [facility] [address] Bilirubin.indirect [Mass/Vol] 0.00 mg/dL Low 0.03-0.18 [facility] Comment on above: Result Comment: If t he DBIL is less than 0.1, IBIL is not able to be calculated. Performed By: #### L IPASE, CBC, CMP, HS TROP #### [facility] [address] INR in Platelet poor plasma by Coagulation assayOrdered By: Rivera Lopez on 04-11-2023 INR Coag (PPP) [Relative time] 1.0 {INR} Normal [facility] Comment on above: INR Therapeutic Rang [...] HS TROP #### [facility] [address] Ketones Auto test strip (U) [Mass/Vol]Ordered By: Rivera Lopez on 04-11-2023 Ketones (U) [Mass/Vol] Negative Negative [facility] LIPASEon 04-11-2023 Lipase [Catalytic activity/Vol] 49 U/L High 17-40 [facility] Comment on above: Performed By: #### C BCA, CMP, 3040-3, 92673-6 #### [facility] ([id number]) [address] [facility], [place] [address] Laboratory - UrinalysisOrder ed By: Rivera Lopez on 04-11-2023 Hyaline casts LM Ql (Urine sed) None seen [LPF] 0-8 [facility] Leukocytes [#/volume] correc aurelia for nucleated erythrocytes in Blood by Automated counOrdered By: Rivera Loepz on 04-11-2023 WBC corrected for nucl RBC Auto (Bld) [#/Vol] 13.9 10*3/uL 3.8-11.6 [facility] Leukocytes [#/volume] in Blo od by Automated countOrdered By: Rivera Lopez on 04-11-2023 WBC (Bld) [#/Vol] 13.9 10*3/uL High 3.8-11.6 [facility] Comment on above: Performed By: #### L IPASE, CBC, CMP, HS TROP #### [facility] [address] Lipase [Enzymatic activity/v olume] in Serum or PlasmaOrdered By: Rivera Lopez on 04-11-2023 Lipase [Catalytic activity/Vol] 26.0 U/L Normal 11.0-82.0 [facility] Comment on above: Result Comment: PERF ORMED BY: [place] [address] PATHOLOGIST PHONE SPECIALIST PAULA RODRIGUES M.D. Performed By: #### L IPASE, CBC, CMP, HS TROP #### [facility] [address] [place] [address] [place] Lymphocytes [#/volume] in Bl ood by Automated countOrdered By: Rivera Lopez on 04-11-2023 Lymphocytes (Bld) [#/Vol] 1.1 10*3/uL Normal 1.00-4.8 [facility] Comment on above: Performed By: #### L IPASE, CBC, CMP, HS TROP #### [facility] [address] [place] [address] [place] Lymphocytes/100 leukocytes i n Blood by Automated countOrdered By: Rivera Lopez on 04-11-2023 Lymphocytes/100 WBC (Bld) 8.1 % Normal . [facility] Comment on above: Performed By: #### L IPASE, CBC, CMP, HS TROP #### [facility] [address] MAGNESIUMon 04-11-2023 Magnesium [Mass/Vol] 2.0 mg/dL Normal 1.8-2.[address] [facility] Comment on above: Performed By: #### C BCA, CMP, 3040-3, 74410-1, 59861-6, 11922- 9 #### [facility] ([id number]) [address] [place] [address], [place] [address] MCH [Entitic mass] by Automa aurelia countOrdered By: Rivera Lopez on 04-11-2023 MCH (RBC) [Entitic mass] 32.2 pg Normal 24.7-34.3 [facility] Comment on above: Performed By: #### L IPASE, CBC, CMP, HS TROP #### [address] MCHC Auto (RBC) [Mass/Vol]Or dered By: Rivera Lopez on 04-11-2023 MCHC (RBC) [Mass/Vol] 33.2 g/dL 32.0-35.0 [facility] MCV [Entitic volume] by Auto mated countOrdered By: Rivera Lopez on 04-11-2023 MCV (RBC) [Entitic vol] 96.8 fL Normal 80-100 [facility] Comment on above: Performed By: #### L IPASE, CBC, CMP, HS TROP #### [facility] [address] [place] [address] [place] Monocyte distribution width [Entitic volume] in Blood by AutomatedOrdered By: Rivera Lopez on 04-11-2023 Monocyte distribution width Auto (Bld) [Entitic vol] 17.01 % 0.00-20.00 [facility] Neutrophils [#/volume] in Bl ood by Automated countOrdered By: Rivera Lopez on 04-11-2023 Neutrophils (Bld) [#/Vol] 12.1 10*3/uL High 1.8-7.7 [facility] Comment on above: Performed By: #### L IPASE, CBC, CMP, HS TROP #### [facility] [address] Nitrite Test strip Ql (U)Ord ered By: Rivera Lopez on 04-11-2023 Nitrite Ql (U) Negative Negative [facility] No Panel InformationOrdered By: Rivera Lopez on 04-11-2023 Estimated GFR (CKD-EPI) > 60.0 mL/Min [facility] Creatinine Clearance (Chem 59.83 [facility] Nucleated erythrocytes [Pres ence] in Blood by Automated countOrdered By: Rivera Lopez on 04-11-2023 Nucleated RBC Auto Ql (Bld) 0.0 /100{WBC} 0-0.5 [facility] Partial Thromboplastin Timeo n 04-11-2023 aPTT Coag (Bld) [Time] 23.3 s Low 25.1-36.5 [facility] Comment on above: Result Comment: A he matocrit value greater than 55% may lead to inaccurate results in coagulation testing. Patients having hematocrit values >55% require a special collection tube for coagulation studies. Please contact the laboratory at [phone] for redraw instructions. PERFORMED BY: [place] [address] PATHOLOGIST PHONE SPECIALIST PAULA RODRIGUES M.D. Performed By: #### L IPASE, CBC, CMP, HS TROP #### [facility] [address] [place] [address] Platelet mean volume [Entiti c volume] in Blood by Automated countOrdered By: Rivera Lopez on 04-11-2023 Platelet mean volume (Bld) [Entitic vol] 7.7 fL Normal 6.3-10.7 [facility] Comment on above: Performed By: #### L IPASE, CBC, CMP, HS TROP #### [facility] [address] Platelets [#/volume] in Bloo d by Automated countOrdered By: Rivera Lopez on 04-11-2023 Platelets (Bld) [#/Vol] 262 10*3/uL Normal 150-450 [facility] Comment on above: Performed By: #### L IPASE, CBC, CMP, HS TROP #### [facility] [address] Potassium [Moles/volume] in Serum or PlasmaOrdered By: Rivera Lopez on 04-11-2023 Potassium [Moles/Vol] 4.0 mmol/L Normal 3.5-5.1 [facility] Comment on above: Performed By: #### L IPASE, CBC, CMP, HS TROP #### [address] Protein Auto test strip (U) [Mass/Vol]Ordered By: Rivera Lopez on 04-11-2023 Protein (U) [Mass/Vol] Negative Negative [facility] Protein [Mass/volume] in Ser um or PlasmaOrdered By: Rivera Lopez on 04-11-2023 Protein [Mass/Vol] 6.9 g/dL Normal 6.4-8.9 [facility] Comment on above: Performed By: #### L IPASE, CBC, CMP, HS TROP #### [address] Prothrombin time (PT)Ordered By: Rivera Lopez on 04-11-2023 PT Coag (PPP) [Time] 11.2 s Normal 9.0-12.9 [facility] Comment on above: A hematocrit value g reater than 55% may lead to inaccurate results in coagulation testing. Patients having hematocrit values >55% require a special collection tube for coagulation studies. Please contact the laboratory at [phone] for redraw instructions. Result Comment: A he matocrit value greater than 55% may lead to inaccurate results in coagulation testing. Patients having hematocrit values >55% require a special collection tube for coagulation studies. Please contact the laboratory at [phone] for redraw instructions. Performed By: #### L IPASE, CBC, CMP, HS TROP #### [address] Serum globulin measurement b y calculation (mass/volume)Ordered By: Rivera Lopez on 04-11-2023 Globulin (S) [Mass/Vol] 2.4 g/dL [facility] Comment on above: Performed By: #### L IPASE, CBC, CMP, HS TROP #### [address] Serum or plasma albumin/glob ulin mass ratioOrdered By: Rivera Lopez on 04-11-2023 Albumin/Globulin [Mass ratio] 1.9 {ratio} [facility] Comment on above: Performed By: #### L IPASE, CBC, CMP, HS TROP #### [address] Serum or plasma anion gap de terminationOrdered By: Rivera Lopez on 04-11-2023 Anion gap [Moles/Vol] 14.1 mmol/L Normal 6.0-15.0 [facility] Comment on above: Performed By: #### L IPASE, CBC, CMP, HS TROP #### [address] Serum or plasma non-glucuron idated bilirubin measurement (mass/volume)Ordered By: Rivera Lopez on 04-11-2023 Bilirubin.indirect [Mass/Vol] 0.3 mg/dL [facility] Sodium [Moles/volume] in Ser um or PlasmaOrdered By: Rivera Lopez on 04-11-2023 Sodium [Moles/Vol] 140 mmol/L Normal 136-145 [facility] Comment on above: Performed By: #### L IPASE, CBC, CMP, HS TROP #### [address] Specific gravity Auto test s trip (U) [Rel density]Ordered By: Rivera Lopez on 04-11-2023 Specific gravity (U) [Rel density] > 1.050 1.001-1.03 0 [facility] Squamous epithelial cells de tection in urine sediment by light microscopyOrdered By: Rivera Matoszi on 04-11-2023 Epithelial cells.squamous LM Ql (Urine sed) 0-1 [HPF] 0-2 [facility] URN MACROSCOPIC NURon 2023 BILIRUBIN JERE Negative Normal NEG [facility] Comment on above: Performed By: #### C BCA, CMP, 3040-3, 04825-8, 81827-0, 31810- 9 #### [facility] ([id number]) [address] [place] [address] BLOOD/HGB JERE Negative Normal [facility] Comment on above: Performed By: #### C BCA, CMP, 3040-3, 26154-3, 10239-2, 75006- 9 #### [facility] ([id number]) [address] [place] [address] GLUCOSE JERE Negative Normal [facility] Comment on above: Performed By: #### C BCA, CMP, 3040-3, 19439-7, 79140-5, 93785- 9 #### [facility] ([id number]) [address] [place] [address] 15971 KETONES JERE Negative Normal NEG [facility] Comment on above: Performed By: #### C BCA, CMP, 3040-3, 42782-8, 51945-8, 87409- 9 #### [facility] ([id number]) [address] [place] [address] 80384 LEUKOCYTE ESTERASE JERE Negative Normal NEG [facility] Comment on above: Performed By: #### C BCA, CMP, 3040-3, 32901-9, 63649-8, 85117- 9 #### [facility] ([id number]) [address] [place] [address] 82049 NITRITE JERE Negative Normal NEG [facility] Comment on above: Performed By: #### C BCA, CMP, 3040-3, 88101-8, 74927-1, 70764- 9 #### [facility] ([id number]) [address] [place] [address] 98287 PH JEER >=9.0 Normal 5.0-8.5 [facility] Comment on above: Performed By: #### C BCA, CMP, 3040-3, 36026-4, 13051-5, 92104- 9 #### [facility] ([id number]) [address] [place] [address] 25999 PROTEIN JERE Negative Normal NEG [facility] Comment on above: Performed By: #### C BCA, CMP, 3040-3, 81923-3, 61873-2, 29490- 9 #### [facility] ([id number]) [address] [place] [address] 63760 SPECIFIC GRAVITY JERE 1.015 Normal 1.003-[address] [place] [address] Comment on above: Performed By: #### C BCA, CMP, 3040-3, 19284-1, 24838-3, 83993- 9 #### [facility] ([id number]) [address] [place] [address] 86502 UROBILINOGEN JERE 0.2 eu/dL Normal <1.1 [facility] Comment on above: Performed By: #### C BCA, CMP, 3040-3, 46902-3, 52103-1, 58068- 9 #### [facility] ([id number]) [address] [place] [address] 17834 Urea nitrogen [Mass/volume] in Serum or PlasmaOrdered By: Rivera Lopez on 04-11-2023 Urea nitrogen [Mass/Vol] 5 mg/dL Low 7-25 [facility] Comment on above: Performed By: #### L IPASE, CBC, CMP, HS TROP #### [facility] [address] Urine bacteria detection by automated methodOrdered By: Rivera Lopez on 04-11-2023 Bacteria Auto Ql (U) None seen None Seen [facility] Urine clarity by refractomet ry automatedOrdered By: Rivera Lopez on 04-11-2023 Clarity Refractometry automated (U) Turbid Clear [facility] Urine glucose measurement by automated test strip (mass/volume)Ordered By: Rivera Lopez on 04-11-2023 Glucose Auto test strip (U) [Mass/Vol] Normal mg/dL Normal [facility] Urine hemoglobin detection b y automated test stripOrdered By: Rivera Lopez on 04-11-2023 Hemoglobin Auto test strip Ql (U) Negative Negative [facility] Urine leukocyte esterase det ection by automated test stripOrdered By: Rivera Lopez on 04-11-2023 Leukocyte esterase Auto test strip Ql (U) Negative Negative [facility] Urine pH measurement by auto mated test stripOrdered By: Rivera Lopez on 04-11-2023 pH (U) 8.0 [pH] Normal 5.0-9.0 [facility] Comment on above: Order Comment: Name Collection Type:: Clean-Voided Midstream Performed By: #### L IPASE, CBC, CMP, HS TROP #### [facility] [address] [place] [address] Urobilinogen Auto test strip (U) [Mass/Vol]Ordered By: Rivera Lopez on 04-11-2023 Urobilinogen (U) [Mass/Vol] Normal mg/dL Normal [facility] Alanine aminotransferase [En zymatic activity/volume] in Serum or PlasmaOrdered By: Nicole Posadas on 04-02-2023 ALT [Catalytic activity/Vol] 11 U/L Normal 7-52 [facility] Comment on above: Performed By: #### L IPASE, CBC, CMP, HS TROP #### [facility] [address] [place] [address] [place] Albumin [Mass/volume] in Ser um or Plasma by Bromocresol green (BCG) dye binding methoOrdered By: Nicole Posadas on 04-02-2023 Albumin BCG dye [Mass/Vol] 4.2 g/dL 3.5-5.7 [facility] Alkaline phosphatase [Enzyma tic activity/volume] in Serum or PlasmaOrdered By: Nicole Posadas on 04-02-2023 ALP [Catalytic activity/Vol] 101 U/L Normal 34-104 [facility] Comment on above: Performed By: #### L IPASE, CBC, CMP, HS TROP #### [address] Aspartate aminotransferase [ Enzymatic activity/volume] in Serum or PlasmaOrdered By: Nicole Posadas on 04-02-2023 AST [Catalytic activity/Vol] 21 U/L Normal 13-39 [facility] Comment on above: Performed By: #### L IPASE, CBC, CMP, HS TROP #### [address] Automated basophil %Ordered By: Nicole Posadas on 04-02-2023 Basophils/100 WBC (Bld) 0.2 % Normal . [facility] Comment on above: Performed By: #### L IPASE, CBC, CMP, HS TROP #### [address] Automated basophil countOrde red By: Nicole Posadas on 04-02-2023 Basophils (Bld) [#/Vol] 0.0 10*3/uL Normal 0.0-0.2 [facility] Comment on above: Result Comment: PERF ORMED BY: [place] [address] PATHOLOGIST PHONE SPECIALIST PAULA RODRIGUES M.D. Performed By: #### L IPASE, CBC, CMP, HS TROP #### [address] Automated blood monocyte cou ntOrdered By: Nicole Posadas on 04-02-2023 Monocytes (Bld) [#/Vol] 0.6 10*3/uL Normal 0.0-0.8 [facility] Comment on above: Performed By: #### L IPASE, CBC, CMP, HS TROP #### [address] Automated eosinophil %Ordere d By: Nicole Posadas on 04-02-2023 Eosinophils/100 WBC (Bld) 1.7 % Normal . [facility] Comment on above: Performed By: #### L IPASE, CBC, CMP, HS TROP #### [address] Automated eosinophil countOr dered By: Nicole Posadas on 04-02-2023 Eosinophils (Bld) [#/Vol] 0.1 10*3/uL Normal 0.0-0.45 [facility] Comment on above: Performed By: #### L IPASE, CBC, CMP, HS TROP #### [address] Automated monocyte %Ordered By: Nicole Posadas on 04-02-2023 Monocytes/100 WBC (Bld) 9.8 % Normal . [facility] Comment on above: Performed By: #### L IPASE, CBC, CMP, HS TROP #### [address] Automated neutrophil %Ordere d By: Nicole Posadas on 04-02-2023 Neutrophils/100 WBC (Bld) 59.1 % Normal . [facility] Comment on above: Performed By: #### L IPASE, CBC, CMP, HS TROP #### [address] Automated urine color determ inationOrdered By: Nicole Posadas on 04-02-2023 Color (U) Yellow Normal Yellow [facility] Comment on above: Order Comment: Name Collection Type:: Clean-Voided Midstream Performed By: #### U A #### [address] Bilirubin Test strip Ql (U)O rdered By: Nicole Posadas on 04-02-2023 Bilirubin Ql (U) Negative Negative [facility] Bilirubin.total [Mass/volume ] in Serum or PlasmaOrdered By: Nicole Posadas on 04-02-2023 Bilirubin [Mass/Vol] 0.3 mg/dL Normal 0.3-1.0 [facility] Comment on above: Performed By: #### L IPASE, CBC, CMP, HS TROP #### [facility] [address] [place] [address] [facility] CT abdomen pelvis w conon CT abdomen pelvis w con [facility] [place] [address] [place] [address] CT Scan Report Signed Patient: Chioma Arciniega MR#: [id number] : 1970 Acct:[id number] Age/Sex: 52 / F ADM Date: 04/02/23 Loc: ER Room: Type: [facility] ER Attending Dr: Copies to: Nicole Posadas [...] Paredes Jr., Antoinette04/02/2023 6:15 PM Dictation Location: [place] [address] Transcribed By: [facility] 04/02/231814 Dictated By: Eyal Paredes Jr, DO 04/02/231808 Signed By: 04/02/231814 Normal [facility] Calcium [Mass/volume] in Ser um or PlasmaOrdered By: Nicole Posadas on 04-02-2023 Calcium [Mass/Vol] 9.7 mg/dL Normal 8.6-10.3 [facility] Comment on above: Performed By: #### L IPASE, CBC, CMP, HS TROP #### [address] Carbon dioxide, total [Moles /volume] in Serum or PlasmaOrdered By: Nicole Posadas on 04-02-2023 CO2 [Moles/Vol] 26.3 mmol/L Normal 21.0-31.[address] [facility] Comment on above: Performed By: #### L IPASE, CBC, CMP, HS TROP #### [facility] [address] [place] [address] [place] Chloride [Moles/volume] in S erika or PlasmaOrdered By: Nicole Posadas on 04-02-2023 Chloride [Moles/Vol] 106 mmol/L Normal 98-107 [facility] Comment on above: Performed By: #### L IPASE, CBC, CMP, HS TROP #### [facility] [address] [place] [address] [place] Complete Blood Count Auto Di ffon 04-02-2023 Mean Corpuscular HGB Conc 34.0 g/dL Normal 32.0-35.0 [facility] Comment on above: Performed By: #### L IPASE, CBC, CMP, HS TROP #### [facility] [address] [place], [place] [id number] [place] Monocytes/100 WBC (Bld) 17.36 % Normal 0.00-20.00 [facility] Comment on above: Performed By: #### L IPASE, CBC, CMP, HS TROP #### [facility] [address] [place] [address] NRBC% 0.1 /100{WBC} Normal 0-0.5 [facility] Comment on above: Performed By: #### L IPASE, CBC, CMP, HS TROP #### [facility] [address] [place] [address] Comprehensive Metabolic Pane nimesh 04-02-2023 Albumin [Mass/Vol] 4.2 g/dL Normal 3.5-5.7 [facility] Comment on above: Performed By: #### L IPASE, CBC, CMP, HS TROP #### [address] Anion gap [Moles/Vol] Not performed Normal 6.0-15.0 [facility] Comment on above: Performed By: #### L IPASE, CBC, CMP, HS TROP #### [address] Creatinine Clr Calc Pharmacy 62.75 Normal [facility] Comment on above: Performed By: #### L IPASE, CBC, CMP, HS TROP #### [address] GFR/1.73 sq M.predicted MDRD (S/P/Bld) [Vol rate/Area] mL/min/{1.73_m2} Normal [facility] Comment on above: Performed By: #### L IPASE, CBC, CMP, HS TROP #### [address] Potassium Normal 3.5-5.1 [facility] Comment on above: Result Comment: Spec imen hemolyzed, redraw requested Performed By: #### L IPASE, CBC, CMP, HS TROP #### [address] Creatinine [Mass/volume] in Serum or PlasmaOrdered By: Nicole Posadas on 04-02-2023 Creatinine [Mass/Vol] 0.82 mg/dL Normal 0.60-1.20 [facility] Comment on above: Performed By: #### L IPASE, CBC, CMP, HS TROP #### [place] [id number] [place] D-Dimer High Sensitivityon 0 04-02-2023 D-Dimer High Sensitivity < 200 Normal 0-243 [facility] Comment on above: Result [...] coagulation studies. Please contact the laboratory at [phone] for redraw instructions. PERFORMED BY: [place] [address] PATHOLOGIST PHONE SPECIALIST PAULA RODRIGUES M.D. Performed By: #### L IPASE, CBC, CMP, HS TROP #### [place] [id number] [facility] ECG 12 lead ECGon 04-02-2023 ECG 12 lead ECG [facility] [place] [address] [place] [address] Electrocardiograph Report Signed Patient: Chioma Arciniega MR#: [id number] : 1970 Acct:[id number] Age/Sex: 52 / F ADM Date: 04/02/23 Loc: ER Room: Type: [facility] ER Attending Dr: Ordering Provider: Nicole Posadas [...] Xiang Kellogg MD 04/02/23 1527 Normal [facility] Erythrocyte distribution wid th [Ratio] by Automated countOrdered By: Nicole Posadas on 04-02-2023 Erythrocyte distribution width (RBC) [Ratio] 13.3 % Normal 11.9-15.3 [facility] Comment on above: Performed By: #### L IPASE, CBC, CMP, HS TROP #### [facility] [address] Erythrocytes [#/volume] in B lood by Automated countOrdered By: Nicole Posadas on 04-02-2023 RBC (Bld) [#/Vol] 4.29 10*6/uL Normal 3.60-5.00 [facility] Comment on above: Performed By: #### L IPASE, CBC, CMP, HS TROP #### [facility] [address] Fibrin D-dimer [Presence] in Platelet poor plasma by Latex agglutinationOrdered By: Nicole Posadas on 04-02-2023 Fibrin D-dimer LA Ql (PPP) < 200 ng/mL 0-243 [facility] Comment on above: The reference range [...] coagulation studies. Please contact the laboratory at [phone] for redraw instructions. Glucose [Mass/volume] in Ser um or PlasmaOrdered By: Nicole Posadas on 04-02-2023 Glucose [Mass/Vol] 90 mg/dL Normal 70-100 [facility] Comment on above: ADA recommended refe rence rangeRandom Glucose Reference Range is dependent on time and content of last meal. Glucose of more than 200 mg/dL in a nonstressed, ambulatory subject supports the diagnosis of Diabetes Mellitus. Result Comment: Supply om Glucose Reference Range is dependent on time and content of last meal. Glucose of more than 200 mg/dL in a nonstressed, ambulatory subject supports the diagnosis of Diabetes Mellitus. ADA recommended reference range Performed By: #### L IPASE, CBC, CMP, HS TROP #### [facility] [address] Hematocrit [Volume Fraction] of Blood by Automated countOrdered By: Nicole Posadas on 04-02-2023 Hematocrit (Bld) [Volume fraction] 41.8 % Normal 34.0-46.4 [facility] Comment on above: Performed By: #### L IPASE, CBC, CMP, HS TROP #### [facility] [address] [place] [id number] [facility] Hemoglobin [Mass/volume] in BloodOrdered By: Nicole Posadas on 04-02-2023 Hemoglobin (Bld) [Mass/Vol] 14.2 g/dL Normal 11.8-15.4 [facility] Comment on above: Performed By: #### L IPASE, CBC, CMP, HS TROP #### [facility] [address] [place] [id number] [place] Ketones Auto test strip (U) [Mass/Vol]Ordered By: Nicole Posadas on 04-02-2023 Ketones (U) [Mass/Vol] Negative Negative [facility] Leukocytes [#/volume] correc aurelia for nucleated erythrocytes in Blood by Automated counOrdered By: Nicole Posadas on 04-02-2023 WBC corrected for nucl RBC Auto (Bld) [#/Vol] 6.2 10*3/uL 3.8-11.6 [facility] Leukocytes [#/volume] in Blo od by Automated countOrdered By: Nicoel Posadas on 04-02-2023 WBC (Bld) [#/Vol] 6.2 10*3/uL Normal 3.8-11.6 [facility] Comment on above: Performed By: #### L IPASE, CBC, CMP, HS TROP #### [facility] [address] [place] [address] [place] Lipase [Enzymatic activity/v olume] in Serum or PlasmaOrdered By: Nicole Posadas on 04-02-2023 Lipase [Catalytic activity/Vol] 186.0 U/L High 11.0-82.0 [facility] Comment on above: Result Comment: PERF ORMED BY: [place] [address] PATHOLOGIST PHONE SPECIALIST PAULA RODRIGUES M.D. Performed By: #### L IPASE, CBC, CMP, HS TROP #### [facility] [address] [place] [address] [place] Lymphocytes [#/volume] in Bl ood by Automated countOrdered By: Nicole Posadas on 04-02-2023 Lymphocytes (Bld) [#/Vol] 1.8 10*3/uL Normal 1.00-4.8 [facility] Comment on above: Performed By: #### L IPASE, CBC, CMP, HS TROP #### [facility] [address] [place] [address] [place] Lymphocytes/100 leukocytes i n Blood by Automated countOrdered By: Nicole Posadas on 04-02-2023 Lymphocytes/100 WBC (Bld) 29.2 % Normal . [facility] Comment on above: Performed By: #### L IPASE, CBC, CMP, HS TROP #### [facility] [address] [place] [address] [place] MCH [Entitic mass] by Automa aurelia countOrdered By: Nicole Posadas on 04-02-2023 MCH (RBC) [Entitic mass] 33.1 pg Normal 24.7-34.3 [facility] Comment on above: Performed By: #### L IPASE, CBC, CMP, HS TROP #### [facility] [address] [place] [address] MCHC Auto (RBC) [Mass/Vol]Or dered By: Nicole Posadas on 04-02-2023 MCHC (RBC) [Mass/Vol] 34.0 g/dL 32.0-35.0 [facility] MCV [Entitic volume] by Auto mated countOrdered By: Nicole Posadas on 04-02-2023 MCV (RBC) [Entitic vol] 97.4 fL Normal 80-100 [facility] Comment on above: Performed By: #### L IPASE, CBC, CMP, HS TROP #### [facility] [address] [place] [address] Monocyte distribution width [Entitic volume] in Blood by AutomatedOrdered By: Nicole Posadas on 04-02-2023 Monocyte distribution width Auto (Bld) [Entitic vol] 17.36 % 0.00-20.00 [facility] Neutrophils [#/volume] in Bl ood by Automated countOrdered By: Nicole Posadas on 04-02-2023 Neutrophils (Bld) [#/Vol] 3.6 10*3/uL Normal 1.8-7.7 [facility] Comment on above: Performed By: #### L IPASE, CBC, CMP, HS TROP #### [facility] [address] [place] [address] Nitrite Test strip Ql (U)Ord ered By: Nicole Posadas on 04-02-2023 Nitrite Ql (U) Negative Negative [facility] No Panel InformationOrdered By: Nicole Posadas on 04-02-2023 Estimated GFR (CKD-EPI) > 60.0 mL/Min [facility] Creatinine Clearance (Chem 62.75 [facility] Nucleated erythrocytes [Pres ence] in Blood by Automated countOrdered By: Nicole Posadas on 04-02-2023 Nucleated RBC Auto Ql (Bld) 0.1 /100{WBC} 0-0.5 [facility] Platelet mean volume [Entiti c volume] in Blood by Automated countOrdered By: Nicole Posadas on 04-02-2023 Platelet mean volume (Bld) [Entitic vol] 8.3 fL Normal 6.3-10.7 [facility] Comment on above: Performed By: #### L IPASE, CBC, CMP, HS TROP #### [address] Platelets [#/volume] in Bloo d by Automated countOrdered By: Nicole Posadas on 04-02-2023 Platelets (Bld) [#/Vol] 236 10*3/uL Normal 150-450 [facility] Comment on above: Performed By: #### L IPASE, CBC, CMP, HS TROP #### [address] Potassium [Moles/volume] in Serum or PlasmaOrdered By: Nicole Posadas on 04-02-2023 Potassium [Moles/Vol] 4.3 mmol/L Normal 3.5-5.1 [facility] Comment on above: Result Comment: PERF ORMED BY: [place] [address] PATHOLOGIST PHONE SPECIALIST PAULA RODRIGUES M.D. Performed By: #### R LESLY K #### [address] Protein Auto test strip (U) [Mass/Vol]Ordered By: Nicole Posadas on 04-02-2023 Protein (U) [Mass/Vol] Negative Negative [facility] Protein [Mass/volume] in Ser um or PlasmaOrdered By: Nicole Posadas on 04-02-2023 Protein [Mass/Vol] 6.6 g/dL Normal 6.4-8.9 [facility] Comment on above: Performed By: #### L IPASE, CBC, CMP, HS TROP #### [address] Serum globulin measurement b y calculation (mass/volume)Ordered By: Nicole Posadas on 04-02-2023 Globulin (S) [Mass/Vol] 2.4 g/dL Normal [facility] Comment on above: Performed By: #### L IPASE, CBC, CMP, HS TROP #### [facility] [address] Serum or plasma albumin/glob ulin mass ratioOrdered By: Nciole Posadas on 04-02-2023 Albumin/Globulin [Mass ratio] 1.8 {ratio} [facility] Comment on above: Performed By: #### L IPASE, CBC, CMP, HS TROP #### [facility] [address] [place] [address] Serum or plasma anion gap de terminationOrdered By: Nicole Posadas on 04-02-2023 Anion gap [Moles/Vol] TNP [facility] Comment on above: Test not performed Sodium [Moles/volume] in Ser um or PlasmaOrdered By: Nicole Posadas on 04-02-2023 Sodium [Moles/Vol] 137 mmol/L Normal 136-145 [facility] Comment on above: Performed By: #### L IPASE, CBC, CMP, HS TROP #### [facility] [address] [place] [address] Specific gravity Auto test s trip (U) [Rel density]Ordered By: Nicole Posadas on 04-02-2023 Specific gravity (U) [Rel density] 1.022 1.001-1.03 0 [facility] Troponin I High Sensitivityo n 04-02-2023 Troponin I High Sensitivity 2.6 pg/mL Normal 0.0-15.0 [facility] Comment on above: Result Comment: PERF ORMED BY: [place] [address] PATHOLOGIST PHONE SPECIALIST PAULA RODRIGUES M.D. Performed By: #### L IPASE, CBC, CMP, HS TROP #### [facility] [address] [place] [address] Troponin I.cardiac [Mass/vol ume] in Serum or Plasma by Detection limit <= 0.01 ng/Ordered By: Nicole Posadas on 04-02-2023 Troponin I.cardiac DL <= 0.01 ng/mL [Mass/Vol] 2.6 pg/mL 0.0-15.0 [facility] Urea nitrogen [Mass/volume] in Serum or PlasmaOrdered By: Nicole Posadas on 04-02-2023 Urea nitrogen [Mass/Vol] 7 mg/dL Normal 09-30 [facility] Comment on above: Performed By: #### L IPASE, CBC, CMP, HS TROP #### [facility] [address] [place] [address] [place] Urinalysison 04-02-2023 Appearance (U) Clear Normal Clear [facility] Comment on above: Order Comment: Name Collection Type:: Clean-Voided Midstream Performed By: #### U A #### [address] Bilirubin,Urine Negative Normal Negative [facility] Comment on above: Order Comment: Name Collection Type:: Clean-Voided Midstream Performed By: #### U A #### [place] [address] [place] Glucose Ql (U) Normal Normal Normal [facility] Comment on above: Order Comment: Name Collection Type:: Clean-Voided Midstream Performed By: #### U A #### [address] Ketones Ql (U) Negative Normal Negative [facility] Comment on above: Order Comment: Name Collection Type:: Clean-Voided Midstream Performed By: #### U A #### [place] [address] [place] Leukocyte esterase Test strip Ql (U) Negative Normal Negative [facility] Comment on above: Order Comment: Name Collection Type:: Clean-Voided Midstream Performed By: #### U A #### [place] [address] [place] Nitrite,Urine Negative Normal Negative [facility] Comment on above: Order Comment: Name Collection Type:: Clean-Voided Midstream Performed By: #### U A #### [place] [address] [place] Occult Blood,Urine Negative Normal Negative [facility] Comment on above: Order Comment: Name Collection Type:: Clean-Voided Midstream Result Comment: PERF ORMED BY: [place] [address] PATHOLOGIST PHONE SPECIALIST PAULA RODRIGUES M.D. Performed By: #### U A #### [place] [address] [place] Protein,Urine Negative Normal Negative [facility] Comment on above: Order Comment: Name Collection Type:: Clean-Voided Midstream Performed By: #### U A #### [address] Specificy [place],Urine 1.022 Normal 1.001-1.03 0 [facility] Comment on above: Order Comment: Name Collection Type:: Clean-Voided Midstream Performed By: #### U A #### [place] [address] [place] Urobilinogen,Urine Normal Normal Normal [facility] Comment on above: Order Comment: Name Collection Type:: Clean-Voided Midstream Performed By: #### U A #### [address] Urine clarity by refractomet ry automatedOrdered By: Nicole Posadas on 04-02-2023 Clarity Refractometry automated (U) Clear Clear [facility] Urine glucose measurement by automated test strip (mass/volume)Ordered By: Nicole Posadas on 04-02-2023 Glucose Auto test strip (U) [Mass/Vol] Normal mg/dL Normal [facility] Urine hemoglobin detection b y automated test stripOrdered By: Nicole Posadas on 04-02-2023 Hemoglobin Auto test strip Ql (U) Negative Negative [facility] Urine leukocyte esterase det ection by automated test stripOrdered By: Nicole Posadas on 04-02-2023 Leukocyte esterase Auto test strip Ql (U) Negative Negative [facility] Urine pH measurement by auto mated test stripOrdered By: Nicole Posadas on 04-02-2023 pH (U) 5.5 [pH] Normal 5.0-9.0 [facility] Comment on above: Order Comment: Name Collection Type:: Clean-Voided Midstream Performed By: #### U A #### [place] [facility] [address] Urobilinogen Auto test strip (U) [Mass/Vol]Ordered By: Nicole Posadas on 04-02-2023 Urobilinogen (U) [Mass/Vol] Normal mg/dL Normal [facility] CBC AND AUTO DIFFon 03-27-19 ABSOLUTE BASOPHIL 0.1 X10E9/L Normal 0.0-0.2 [facility] Comment on above: Performed By: #### C BCA, CMP, 3040-3, 41637-7, 14106-4, 32777- 9 #### [facility] ([id number]) [address] [place] [address] 39694 ABSOLUTE NEUTROPHIL 7.2 X10E9/L High 1.5-6.[address] [facility] Comment on above: Performed By: #### C BCA, CMP, 3040-3, 65719-6, 46126-4, 07676- 9 #### [facility] ([id number]) [address] [place] [address] 67478 Basophils/100 WBC (Bld) 0.6 % Normal [facility] Comment on above: Performed By: #### C BCA, CMP, 3040-3, 46543-0, 19939-5, 90570- 9 #### [facility] ([id number]) [address] [place] [address] 55520 Eosinophils (Bld) [#/Vol] 0.0 10*3/uL Normal 0.0-0.4 [facility] Comment on above: Performed By: #### C BCA, CMP, 3040-3, 52111-3, 97729-9, 11600- 9 #### [facility] ([id number]) [address] [place] [address] 54430 Eosinophils/100 WBC (Bld) 0.1 % Normal [facility] Comment on above: Performed By: #### C BCA, CMP, 3040-3, 14862-4, 17224-9, 52771- 9 #### [facility] ([id number]) [address] [place] [address] 85142 Erythrocyte distribution width (RBC) [Ratio] 13.7 % Normal 11.5-15.0 [facility] Comment on above: Performed By: #### C BCA, CMP, 3040-3, 66281-9, 14042-5, 53482- 9 #### [facility] ([id number]) [address] [place] [address] 91793 Hematocrit (Bld) [Volume fraction] 40.4 % Normal 35-47 [facility] Comment on above: Performed By: #### C BCA, CMP, 3040-3, 96600-7, 15486-3, 07808- 9 #### [facility] ([id number]) [address] [place] [address] 29712 Hemoglobin (Bld) [Mass/Vol] 13.8 g/dL Normal 11.7-15.5 [facility] Comment on above: Performed By: #### C BCA, CMP, 3040-3, 93774-9, 29522-8, 75296- 9 #### [facility] ([id number]) [address] [place] [address] 72350 Lymphocytes (Bld) [#/Vol] 1.7 10*3/uL Normal 1.0-3.5 [facility] Comment on above: Performed By: #### C BCA, CMP, 3040-3, 19172-5, 43492-9, 93063- 9 #### [facility] ([id number]) [address] [place] [address] [place] [address] Lymphocytes/100 WBC (Bld) 17.8 % Normal [facility] Comment on above: Performed By: #### C BCA, CMP, 3040-3, 10285-6, 97018-2, - 9 #### [facility] ([id number]) [address] [place] [address] 33632 MCH (RBC) [Entitic mass] 33.0 pg Normal 27-34 [facility] Comment on above: Performed By: #### C BCA, CMP, 3040-3, 84400-9, 24985-8, 16062- 9 #### [facility] ([id number]) [address] [place] [address] 14595 MCHC (RBC) [Mass/Vol] 34.1 g/dL Normal 32-36 [facility] Comment on above: Performed By: #### C BCA, CMP, 3040-3, 34165-9, 80392-0, - 9 #### [facility] ([id number]) [address] [place] [address] 21268 MCV (RBC) [Entitic vol] 97 fL Normal 80-100 [facility] Comment on above: Performed By: #### C BCA, CMP, 3040-3, 77910-6, 46486-5, 97612- 9 #### [facility] ([id number]) [address] [place] [address] 41203 Monocytes (Bld) [#/Vol] 0.8 10*3/uL Normal 0-0.9 [facility] Comment on above: Performed By: #### C BCA, CMP, 3040-3, 62589-9, 04061-1, 08779- 9 #### [facility] ([id number]) [address] [place] [address] 54067 Monocytes/100 WBC (Bld) 7.8 % Normal [facility] Comment on above: Performed By: #### C BCA, CMP, 3040-3, 78767-0, 34846-6, 39764- 9 #### [facility] ([id number]) [address] [place] [address] 87808 Neutrophils/100 WBC (Bld) 73.7 % Normal [facility] Comment on above: Performed By: #### C BCA, CMP, 3040-3, 27150-5, 40243-3, 60102- 9 #### [facility] ([id number]) [address] [place] [address] 88276 Platelet mean volume (Bld) [Entitic vol] 7.6 fL Normal 7-12 [facility] Comment on above: Performed By: #### C BCA, CMP, 3040-3, 32829-4, 01501-8, 13642- 9 #### [facility] ([id number]) [address] [place] [address] 60062 Platelets (Bld) [#/Vol] 269 10*3/uL Normal 150-450 [facility] Comment on above: Performed By: #### C BCA, CMP, 3040-3, 84804-1, 19568-8, 39569- 9 #### [facility] ([id number]) [address] [place] [address] 33765 RBC COUNT 4.17 X10E12/L Normal 3.80-5.20 [facility] Comment on above: Performed By: #### C BCA, CMP, 3040-3, 73873-1, 02738-1, 83517- 9 #### [facility] ([id number]) [address] [place] [address] 91116 WBC (Bld) [#/Vol] 9.8 10*3/uL Normal 4.0-11.0 [facility] Comment on above: Performed By: #### C BCA, CMP, 3040-3, 86830-6, 73797-9, 92057- 9 #### [facility] ([id number]) [address] [place] [address] 30435 COMPREHENSIVE METABOLIC PANE Nimesh 03-27-2023 Albumin [Mass/Vol] 4.6 g/dL Normal 3.2-5.3 [facility] Comment on above: Performed By: #### C BCA, CMP, 3040-3, 21732-4, 36036-0, 75899- 9 #### [facility] ([id number]) [address] [place] [address] 25634 ALP [Catalytic activity/Vol] 125 U/L Normal 39-130 [facility] Comment on above: Performed By: #### C BCA, CMP, 3040-3, 23640-9, 45533-7, 23797- 9 #### [facility] ([id number]) [address] [place] [address] 75332 ALT [Catalytic activity/Vol] 17 U/L Normal 0-31 [facility] Comment on above: Performed By: #### C BCA, CMP, 3040-3, 79980-8, 11467-3, 44683- 9 #### [facility] ([id number]) [address] [place] [address] 44345 Anion gap [Moles/Vol] 10 mmol/L Normal 5-15 [facility] Comment on above: Performed By: #### C BCA, CMP, 3040-3, 97642-9, 84349-1, 16331- 9 #### [facility] ([id number]) [address] [place] [address] 72353 AST [Catalytic activity/Vol] 27 U/L Normal 0-41 [facility] Comment on above: Performed By: #### C BCA, CMP, 3040-3, 12793-8, 41290-3, 85229- 9 #### [facility] ([id number]) [address] [place] [address] 86000 Bilirubin [Mass/Vol] 0.4 mg/dL Normal 0.3-1.[address] [facility] Comment on above: Performed By: #### C BCA, CMP, 3040-3, 06884-4, 28787-2, 19294- 9 #### [facility] ([id number]) [address] [place] [address] 47910 Calcium [Mass/Vol] 10.4 mg/dL Normal 8.5-10.5 [facility] Comment on above: Performed By: #### C BCA, CMP, 3040-3, 80101-2, 56709-7, 48039- 9 #### [facility] ([id number]) [address] [place] [address] 17866 Chloride [Moles/Vol] 103 mmol/L Normal 98-[address] [facility] Comment on above: Performed By: #### C BCA, CMP, 3040-3, 78724-9, 07953-1, 23164- 9 #### [facility] ([id number]) [address] [place] [address] 85082 CO2 [Moles/Vol] 25 mmol/L Normal 22-32 [facility] Comment on above: Performed By: #### C BCA, CMP, 3040-3, 17716-1, 76636-0, 30872- 9 #### [facility] ([id number]) [address] [place] [address] 26585 Creatinine [Mass/Vol] 0.96 mg/dL Normal 0.40-1.00 [facility] Comment on above: Result Comment: METH OD TRACEABLE TO IDMS STANDARD Performed By: #### C BCA, CMP, 3040-3, 48871-1, 92761-3, 41613-3 #### [facility] ([id number]) [address] [place] [address] 18477 GFR/1.73 sq M.predicted among non-blacks MDRD (S/P/Bld) [Vol rate/Area] 71 mL/min/{1.73_m2} Normal >59 [facility] Comment on above: Result Comment: Reported eGFR is based on the CKD-EPI 2020 equation that does not use a race coefficient. Performed By: #### C BCA, CMP, 3040-3, 47242-7, 03058-8, 41921-6 #### [facility] ([id number]) [address] [place] [address] 03853 Glucose [Mass/Vol] 97 mg/dL Normal 65-99 [facility] Comment on above: Performed By: #### C EZEQUIEL, CMP, 3040-3, 18887-6, 11628-3, 23509- 9 #### [facility] ([id number]) [address] [place] [address] 01470 Potassium [Moles/Vol] 4.2 mmol/L Normal 3.5-5.0 [facility] Comment on above: Performed By: #### C BCA, CMP, 3040-3, 02676-6, 44923-8, 60666- 9 #### [facility] ([id number]) [address] [place] [address] 70164 Protein [Mass/Vol] 7.4 g/dL Normal 6.0-8.0 [facility] Comment on above: Performed By: #### C BCA, CMP, 3040-3, 28427-3, 79028-4, 50140- 9 #### [facility] ([id number]) [address] [place] [address] 41285 Sodium [Moles/Vol] 138 mmol/L Normal 134-146 [facility] Comment on above: Performed By: #### C BCA, CMP, 3040-3, 23782-4, 85356-3, 05506- 9 #### [facility] ([id number]) [address] [place] [address] 09881 Urea nitrogen [Mass/Vol] 14 mg/dL Normal 5-23 [facility] Comment on above: Performed By: #### C BONNIE NIEVES, 3040-3, 29529-1, 62867-7, 11385- 9 #### [facility] ([id number]) [address] [facility] [place] [address] CT ABDOMEN AND PELVIS W CONT on [...] Flower MD on 03/27/2023 12:55 AM Normal [facility] LIPASEon 03-27-2023 Lipase [Catalytic activity/Vol] 31 U/L Normal 17-40 [facility] Comment on above: Performed By: #### C BONNIE NIEVES, 3040-3, 38588-2, 63306-6, 93078- 9 #### [facility] ([id number]) [address] [place] [address] 09136 Lactate (P richard) [Moles/Vol]o n 03-27-2023 LACTATE W/REFLEX 1.2 mmol/L Normal 0.4-2.0 [facility] Comment on above: Result Comment: Result did not trigger repeat Lactate, re-order if needed. Performed By: #### C BCA, CMP, 3040-3, 37482-6, 24868-8, 19720-4 #### [facility] ([id number]) [address] [place] [address] 38979 MAGNESIUMon 03-27-2023 Magnesium [Mass/Vol] 2.0 mg/dL Normal 1.8-2.[address] [facility] Comment on above: Performed By: #### C BCA, CMP, 3040-3, 41733-7, 18650-3, 58037- 9 #### [facility] ([id number]) [address] [place] [address] 56609 TROPONIN Ion 03-27-2023 Troponin I.cardiac [Mass/Vol] ng/mL Normal 0.00-0.04 [facility] Comment on above: Performed By: #### C BCA, CMP, 3040-3, 93903-8, 56731-6, 13182- 9 #### [facility] ([id number]) [address] [place] [address] 52120 Alanine aminotransferase [En zymatic activity/volume] in Serum or PlasmaOrdered By: Nicole Posadas on 11-09-2022 ALT [Catalytic activity/Vol] 12 U/L Normal 7-52 [facility] Comment on above: Performed By: #### C MP, LIPASE, CBC #### [facility] [address] [place] [address] [place] Albumin [Mass/volume] in Ser um or Plasma by Bromocresol green (BCG) dye binding methoOrdered By: Nicole Posadas on 11-09-2022 Albumin BCG dye [Mass/Vol] 4.4 g/dL 3.5-5.7 [facility] Alkaline phosphatase [Enzyma tic activity/volume] in Serum or PlasmaOrdered By: Nicole Posadas on 11-09-2022 ALP [Catalytic activity/Vol] 126 U/L High 34-104 [facility] Comment on above: Performed By: #### C MP, LIPASE, CBC #### [address] Aspartate aminotransferase [ Enzymatic activity/volume] in Serum or PlasmaOrdered By: Nicole Posadas on 11-09-2022 AST [Catalytic activity/Vol] 17 U/L Normal 13-39 [facility] Comment on above: Performed By: #### C MP, LIPASE, CBC #### [address] Automated basophil %Ordered By: Nicole Posadas on 11-09-2022 Basophils/100 WBC (Bld) 0.9 % Normal . [facility] Comment on above: Performed By: #### C MP, LIPASE, CBC #### [address] Automated basophil countOrde red By: Nicole Posadas on 11-09-2022 Basophils (Bld) [#/Vol] 0.1 10*3/uL Normal 0.0-0.2 [facility] Comment on above: Result Comment: PERF ORMED BY: [place] [address] PATHOLOGIST PHONE SPECIALIST PAULA RODRIGUES M.D. Performed By: #### C MP, LIPASE, CBC #### [address] Automated blood monocyte cou ntOrdered By: Nicole Posadas on 11-09-2022 Monocytes (Bld) [#/Vol] 0.8 10*3/uL Normal 0.0-0.8 [facility] Comment on above: Performed By: #### C MP, LIPASE, CBC #### [address] Automated eosinophil %Ordere d By: Nicole Posadas on 11-09-2022 Eosinophils/100 WBC (Bld) 1.6 % Normal . [facility] Comment on above: Performed By: #### C MP, LIPASE, CBC #### [address] Automated eosinophil countOr dered By: Nicole Posadas on 11-09-2022 Eosinophils (Bld) [#/Vol] 0.1 10*3/uL Normal 0.0-0.45 [facility] Comment on above: Performed By: #### C MP, LIPASE, CBC #### [address] Automated monocyte %Ordered By: Nicole Posadas on 11-09-2022 Monocytes/100 WBC (Bld) 8.1 % Normal . [facility] Comment on above: Performed By: #### C MP, LIPASE, CBC #### [address] Automated neutrophil %Ordere d By: Nicole Posadas on 11-09-2022 Neutrophils/100 WBC (Bld) 65.4 % Normal . [facility] Comment on above: Performed By: #### C MP, LIPASE, CBC #### [address] Automated urine color determ inationOrdered By: Nicole Posadas on 11-09-2022 Color (U) Yellow Normal Yellow [facility] Comment on above: Order Comment: Name Collection Type:: Clean-Voided Midstream Performed By: #### L IPASE, CBC, CMP, HS TROP #### [address] Bilirubin Test strip Ql (U)O rdered By: Nicole Posadas on 11-09-2022 Bilirubin Ql (U) Negative Negative [facility] Bilirubin.total [Mass/volume ] in Serum or PlasmaOrdered By: Nicole Posadas on 11-09-2022 Bilirubin [Mass/Vol] 0.3 mg/dL Normal 0.3-1.0 [facility] Comment on above: Performed By: #### C MP, LIPASE, CBC #### [facility] [address] [place] [id number] [facility] CT abdomen pelvis w conon CT abdomen pelvis w con [facility] [place] [address] [place] [address] CT Scan Report Signed Patient: Chioma Arciniega MR#: [id number] : 1970 Acct:[id number] Age/Sex: 52 / F ADM Date: 11/09/22 Loc: ER Room: Type: [facility] ER Attending Dr: Copies to: Nicole Posadas [...] Rajeev Ulloa M.D.11/09/2022 4:14 PM Dictation Location: [place] [address] Transcribed By: RICA 11/09/22 1614 Dictated By: Rajeev Ulloa II, MD 11/09/22 1608 Signed By: 11/09/22 1614 Normal [facility] Calcium [Mass/volume] in Ser um or PlasmaOrdered By: Nicole Posadas on 11-09-2022 Calcium [Mass/Vol] 9.7 mg/dL Normal 8.6-10.3 [facility] Comment on above: Performed By: #### C MP, LIPASE, CBC #### [address] Carbon dioxide, total [Moles /volume] in Serum or PlasmaOrdered By: Nicole Posadas on 11-09-2022 CO2 [Moles/Vol] 28.6 mmol/L Normal 21.0-31.[address] [facility] Comment on above: Performed By: #### C MP, LIPASE, CBC #### [facility] [address] [place] [address] [place] Chloride [Moles/volume] in S erika or PlasmaOrdered By: Nicole Posadas on 11-09-2022 Chloride [Moles/Vol] 107 mmol/L Normal 98-107 [facility] Comment on above: Performed By: #### C MP, LIPASE, CBC #### [facility] [address] [place] [address] [place] Complete Blood Count Auto Di ffon 11-09-2022 Mean Corpuscular HGB Conc 33.4 g/dL Normal 32.0-35.0 [facility] Comment on above: Performed By: #### C MP, LIPASE, CBC #### [place] [address] [place] Monocytes/100 WBC (Bld) 18.76 % Normal 0.00-20.00 [facility] Comment on above: Performed By: #### C MP, LIPASE, CBC #### [address] NRBC% 0.0 /100{WBC} Normal 0-0.5 [facility] Comment on above: Performed By: #### C MP, LIPASE, CBC #### [address] Comprehensive Metabolic Pane nimesh 11-09-2022 Albumin [Mass/Vol] 4.4 g/dL Normal 3.5-5.7 [facility] Comment on above: Performed By: #### C MP, LIPASE, CBC #### [address] Creatinine Clr Calc Pharmacy 69.00 Normal [facility] Comment on above: Performed By: #### C MP, LIPASE, CBC #### [address] GFR/1.73 sq M.predicted MDRD (S/P/Bld) [Vol rate/Area] mL/min/{1.73_m2} Normal [facility] Comment on above: Performed By: #### C MP, LIPASE, CBC #### [address] Creatinine [Mass/volume] in Serum or PlasmaOrdered By: Nicole Posadas on 11-09-2022 Creatinine [Mass/Vol] 0.78 mg/dL Normal 0.60-1.20 [facility] Comment on above: Performed By: #### C MP, LIPASE, CBC #### [address] ECG 12 lead ECGon 11-09-2022 ECG 12 lead ECG [facility] [place] [address] [place] [address] Electrocardiograph Report Signed Patient: Chioma Arciniega MR#: [id number] : 1970 Acct:[id number] Age/Sex: 52 / F ADM Date: 11/09/22 [...] Agustin Llanes MD 06/29 0147 Normal [facility] Erythrocyte distribution wid th [Ratio] by Automated countOrdered By: Nicole Posadas on 11-09-2022 Erythrocyte distribution width (RBC) [Ratio] 13.6 % Normal 11.9-15.3 [facility] Comment on above: Performed By: #### C MP, LIPASE, CBC #### [facility] [address] Erythrocytes [#/volume] in B lood by Automated countOrdered By: Nicole Posadas on 11-09-2022 RBC (Bld) [#/Vol] 4.52 10*6/uL Normal 3.60-5.00 [facility] Comment on above: Performed By: #### C MP, LIPASE, CBC #### [facility] [address] [place] [id number] [facility] Glucose [Mass/volume] in Ser um or PlasmaOrdered By: Nicole Posadas on 11-09-2022 Glucose [Mass/Vol] 96 mg/dL Normal 70-100 [facility] Comment on above: ADA recommended refe rence rangeRandom Glucose Reference Range is dependent on time and content of last meal. Glucose of more than 200 mg/dL in a nonstressed, ambulatory subject supports the diagnosis of Diabetes Mellitus. Result Comment: Supply om Glucose Reference Range is dependent on time and content of last meal. Glucose of more than 200 mg/dL in a nonstressed, ambulatory subject supports the diagnosis of Diabetes Mellitus. ADA recommended reference range Performed By: #### C MP, LIPASE, CBC #### [facility] [address] Hematocrit [Volume Fraction] of Blood by Automated countOrdered By: Nicole Posadas on 11-09-2022 Hematocrit (Bld) [Volume fraction] 44.4 % Normal 34.0-46.4 [facility] Comment on above: Performed By: #### C MP, LIPASE, CBC #### [facility] [address] Hemoglobin [Mass/volume] in BloodOrdered By: Nicole Posadas on 11-09-2022 Hemoglobin (Bld) [Mass/Vol] 14.9 g/dL Normal 11.8-15.4 [facility] Comment on above: Performed By: #### C MP, LIPASE, CBC #### [facility] [address] Ketones Auto test strip (U) [Mass/Vol]Ordered By: Nicole Posadas on 11-09-2022 Ketones (U) [Mass/Vol] Negative Negative [facility] Leukocytes [#/volume] correc aurelia for nucleated erythrocytes in Blood by Automated counOrdered By: Nicole Posadas on 11-09-2022 WBC corrected for nucl RBC Auto (Bld) [#/Vol] 9.3 10*3/uL 3.8-11.6 [facility] Leukocytes [#/volume] in Blo od by Automated countOrdered By: Nicole Posadas on 11-09-2022 WBC (Bld) [#/Vol] 9.3 10*3/uL Normal 3.8-11.6 [facility] Comment on above: Performed By: #### C MP, LIPASE, CBC #### [address] Lipase [Enzymatic activity/v olume] in Serum or PlasmaOrdered By: Nicole Posadas on 11-09-2022 Lipase [Catalytic activity/Vol] 78.0 U/L Normal 11.0-82.0 [facility] Comment on above: Result Comment: PERF ORMED BY: [place] [address] PATHOLOGIST PHONE SPECIALIST PAULA RODRIGUES M.D. Performed By: #### C MP, LIPASE, CBC #### [address] Lymphocytes [#/volume] in Bl ood by Automated countOrdered By: Nicole Posadas on 11-09-2022 Lymphocytes (Bld) [#/Vol] 2.2 10*3/uL Normal 1.00-4.8 [facility] Comment on above: Performed By: #### C MP, LIPASE, CBC #### [address] Lymphocytes/100 leukocytes i n Blood by Automated countOrdered By: Nicole Posadas on 11-09-2022 Lymphocytes/100 WBC (Bld) 24.0 % Normal . [facility] Comment on above: Performed By: #### C MP, LIPASE, CBC #### [address] MCH [Entitic mass] by Automa aurelia countOrdered By: Nicole Posadas on 11-09-2022 MCH (RBC) [Entitic mass] 32.8 pg Normal 24.7-34.3 [facility] Comment on above: Performed By: #### C MP, LIPASE, CBC #### [address] MCHC Auto (RBC) [Mass/Vol]Or dered By: Nicole Posadas on 11-09-2022 MCHC (RBC) [Mass/Vol] 33.4 g/dL 32.0-35.0 [facility] MCV [Entitic volume] by Auto mated countOrdered By: Nicole Posadas on 11-09-2022 MCV (RBC) [Entitic vol] 98.2 fL Normal 80-100 [facility] Comment on above: Performed By: #### C MP, LIPASE, CBC #### [address] [place] [address] [place] Monocyte distribution width [Entitic volume] in Blood by AutomatedOrdered By: Nicole Posadas on 11-09-2022 Monocyte distribution width Auto (Bld) [Entitic vol] 18.76 % 0.00-20.00 [facility] Neutrophils [#/volume] in Bl ood by Automated countOrdered By: Nicole Posadas on 11-09-2022 Neutrophils (Bld) [#/Vol] 6.1 10*3/uL Normal 1.8-7.7 [facility] Comment on above: Performed By: #### C MP, LIPASE, CBC #### [facility] [address] Nitrite Test strip Ql (U)Ord ered By: Nicole Posadas on 11-09-2022 Nitrite Ql (U) Negative Negative [facility] No Panel InformationOrdered By: Nicole Posadas on 11-09-2022 Estimated GFR (CKD-EPI) > 60.0 mL/Min [facility] Creatinine Clearance (Chem 69.00 [facility] Nucleated erythrocytes [Pres ence] in Blood by Automated countOrdered By: Nicole Posadas on 11-09-2022 Nucleated RBC Auto Ql (Bld) 0.0 /100{WBC} 0-0.5 [facility] Platelet mean volume [Entiti c volume] in Blood by Automated countOrdered By: Nicole Posadas on 11-09-2022 Platelet mean volume (Bld) [Entitic vol] 8.3 fL Normal 6.3-10.7 [facility] Comment on above: Performed By: #### C MP, LIPASE, CBC #### [facility] [address] [place] [address] [place] Platelets [#/volume] in Bloo d by Automated countOrdered By: Nicole Posadas on 11-09-2022 Platelets (Bld) [#/Vol] 246 10*3/uL Normal 150-450 [facility] Comment on above: Performed By: #### C MP, LIPASE, CBC #### [facility] [address] [place] [address] [place] Potassium [Moles/volume] in Serum or PlasmaOrdered By: Nicole Posadas on 11-09-2022 Potassium [Moles/Vol] 3.7 mmol/L Normal 3.5-5.1 [facility] Comment on above: Performed By: #### C MP, LIPASE, CBC #### [address] Protein Auto test strip (U) [Mass/Vol]Ordered By: Nicole Posadas on 11-09-2022 Protein (U) [Mass/Vol] Negative Negative [facility] Protein [Mass/volume] in Ser um or PlasmaOrdered By: Nicole Posadas on 11-09-2022 Protein [Mass/Vol] 7.1 g/dL Normal 6.4-8.9 [facility] Comment on above: Performed By: #### C MP, LIPASE, CBC #### [address] Serum globulin measurement b y calculation (mass/volume)Ordered By: Nicole Posadas on 11-09-2022 Globulin (S) [Mass/Vol] 2.7 g/dL Normal [facility] Comment on above: Performed By: #### C MP, LIPASE, CBC #### [address] Serum or plasma albumin/glob ulin mass ratioOrdered By: Nicole Posadas on 11-09-2022 Albumin/Globulin [Mass ratio] 1.6 {ratio} [facility] Comment on above: Performed By: #### C MP, LIPASE, CBC #### [address] Serum or plasma anion gap de terminationOrdered By: Nicole Posadas on 11-09-2022 Anion gap [Moles/Vol] 8.1 mmol/L Normal 6.0-15.0 [facility] Comment on above: Performed By: #### C MP, LIPASE, CBC #### [address] Sodium [Moles/volume] in Ser um or PlasmaOrdered By: Nicole Posadas on 11-09-2022 Sodium [Moles/Vol] 140 mmol/L Normal 136-145 [facility] Comment on above: Performed By: #### C MP, LIPASE, CBC #### [address] Specific gravity Auto test s trip (U) [Rel density]Ordered By: Nicole Posadas on 11-09-2022 Specific gravity (U) [Rel density] 1.012 1.001-1.03 0 [facility] Troponin I High Sensitivityo n 11-09-2022 Troponin I High Sensitivity 3.0 pg/mL Normal 0.0-15.0 [facility] Comment on above: Result Comment: PERF ORMED BY: [place] [address] PATHOLOGIST PHONE SPECIALIST PAULA RODRIGUES M.D. Performed By: #### H S TROP #### [address] Troponin I.cardiac [Mass/vol ume] in Serum or Plasma by Detection limit <= 0.01 ng/Ordered By: Nicole Jjanand on 11-09-2022 Troponin I.cardiac DL <= 0.01 ng/mL [Mass/Vol] 3.0 pg/mL 0.0-15.0 [facility] Urea nitrogen [Mass/volume] in Serum or PlasmaOrdered By: Nicole Posadas on 11-09-2022 Urea nitrogen [Mass/Vol] 6 mg/dL Low 7-25 [facility] Comment on above: Performed By: #### C MP, LIPASE, CBC #### [address] Urinalysison 11-09-2022 Appearance (U) Clear Normal Clear [facility] Comment on above: Order Comment: Name Collection Type:: Clean-Voided Midstream Performed By: #### L IPASE, CBC, CMP, HS TROP #### [address] Bilirubin,Urine Negative Normal Negative [facility] Comment on above: Order Comment: Name Collection Type:: Clean-Voided Midstream Performed By: #### L IPASE, CBC, CMP, HS TROP #### [address] Glucose Ql (U) Normal Normal Normal [facility] Comment on above: Order Comment: Name Collection Type:: Clean-Voided Midstream Performed By: #### L IPASE, CBC, CMP, HS TROP #### [place] [address] [place] Ketones Ql (U) Negative Normal Negative [facility] Comment on above: Order Comment: Name Collection Type:: Clean-Voided Midstream Performed By: #### L IPASE, CBC, CMP, HS TROP #### [address] Leukocyte esterase Test strip Ql (U) Negative Normal Negative [facility] Comment on above: Order Comment: Name Collection Type:: Clean-Voided Midstream Performed By: #### L IPASE, CBC, CMP, HS TROP #### [place] [address] [place] Nitrite,Urine Negative Normal Negative [facility] Comment on above: Order Comment: Name Collection Type:: Clean-Voided Midstream Performed By: #### L IPASE, CBC, CMP, HS TROP #### [place] [address] [place] Occult Blood,Urine Negative Normal Negative The [facility] Comment on above: Order Comment: Name Collection Type:: Clean-Voided Midstream Result Comment: PERF ORMED BY: [place] [address] PATHOLOGIST PHONE SPECIALIST PAULA RODRIGUES M.D. Performed By: #### L IPASE, CBC, CMP, HS TROP #### [place] [address] [place] Protein,Urine Negative Normal Negative [facility] Comment on above: Order Comment: Name Collection Type:: Clean-Voided Midstream Performed By: #### L IPASE, CBC, CMP, HS TROP #### [address] [place] [address] [place] Specificy [place],Urine 1.012 Normal 1.001-1.03 0 [facility] Comment on above: Order Comment: Name Collection Type:: Clean-Voided Midstream Performed By: #### L IPASE, CBC, CMP, HS TROP #### [facility] [address] [id number] [place] Urobilinogen,Urine Normal Normal Normal [facility] Comment on above: Order Comment: Name Collection Type:: Clean-Voided Midstream Performed By: #### L IPASE, CBC, CMP, HS TROP #### [facility] [address] Urine clarity by refractomet ry automatedOrdered By: Nicole Posadas on 11-09-2022 Clarity Refractometry automated (U) Clear Clear [facility] Urine glucose measurement by automated test strip (mass/volume)Ordered By: Nicole Posadas on 11-09-2022 Glucose Auto test strip (U) [Mass/Vol] Normal mg/dL Normal [facility] Urine hemoglobin detection b y automated test stripOrdered By: Nicole Posadas on 11-09-2022 Hemoglobin Auto test strip Ql (U) Negative Negative [facility] Urine leukocyte esterase det ection by automated test stripOrdered By: Nicole Posadas on 11-09-2022 Leukocyte esterase Auto test strip Ql (U) Negative Negative [facility] Urine pH measurement by auto mated test stripOrdered By: Nicole Posadas on 11-09-2022 pH (U) 5.5 [pH] Normal 5.0-9.0 [facility] Comment on above: Order Comment: Name Collection Type:: Clean-Voided Midstream Performed By: #### L IPASE, CBC, CMP, HS TROP #### [facility] [address] [id number] [place] Urobilinogen Auto test strip (U) [Mass/Vol]Ordered By: Nicole Posadas on 11-09-2022 Urobilinogen (U) [Mass/Vol] Normal mg/dL [facility] Patient Name: Chioma Rainey Procedure Date: 08/12/2022 11:09 AM Date of : 1970 Admit Type: Outpatient Age: 52 Room: EUS Proc Room 01 Gender: Female Note Status: Finalized Attending MD: Sabrina Dee MD, MPH, [id number] Procedure: Upper EUS Indications: Chronic pancreatitis, Epigastric abdominal pain, Celiac plexus block for pain secondary to chronic pancreatitis, Dysphagia, Follow-up of esophageal stenosis, For therapy of esophageal stenosis Providers: Sabrina Dee MD, MPH (Doctor), Kolby Gifford RN (Nurse), Elba Faustin (Nurse), Mary Gaviria Respiratory Therapy Director (Respiratory Therapy Director) Referring MD: Alexander Nichols MD (Referring MD) [...] by the physician, the nurse and the stone trimmer in the procedure room. Mental Status Examination: [...] abnor (more content not included)... LAB, [facility] Radiology Study observation (narrative) [facility] AMYLASEon 06-13-2022 Amylase [Catalytic activity/Vol] 92 U/L Normal 25-115 [facility] Comment on above: Performed By: #### L IPA, CMP, CRP, NAT #### [facility] Laboratory [address] [place] [address] Dr. Keturah Fisher CBC AUTO DIFFon 06-13-2022 BASO # 0.1 103/ul Normal 0.0-0.1 [facility] Comment on above: Performed By: #### L IPA, CMP, CRP, NAT #### [facility] Laboratory [address] [address] [address] Keturah Fisher Basophils/100 WBC (Bld) 0.7 % Normal 0.2-2.0 [facility] Comment on above: Performed By: #### L IPA, CMP, CRP, NAT #### [facility] Laboratory [address] [address] [address] Keturah Fisher EO # 0.1 103/ul Normal 0.0-0.7 [facility] Comment on above: Performed By: #### L IPA, CMP, CRP, NAT #### [facility] Laboratory [address] [place] [address] Dr. Keturah Fisher Eosinophils/100 WBC (Bld) 1.1 % Normal 0.9-7.0 [facility] Comment on above: Performed By: #### L IPA, CMP, CRP, NAT #### [facility] Laboratory [address] [place] [address] Dr. Keturah Fisher Erythrocyte distribution width (RBC) [Ratio] 13.0 % Normal 11.0-15.0 [facility] Comment on above: Performed By: #### L IPA, CMP, CRP, NAT #### [facility] Laboratory [address] [place] [address] Dr. Keturah Fisher Hematocrit (Bld) [Volume fraction] 40.5 % Normal 36.0-48.0 [facility] Comment on above: Performed By: #### L IPA, CMP, CRP, NAT #### [facility] Laboratory [address] [place] [address] Dr. Keturah Fisher Hemoglobin (Bld) [Mass/Vol] 13.9 g/dL Normal 12.0-16.0 [facility] Comment on above: Performed By: #### L IPA, CMP, CRP, NAT #### [facility] Laboratory [address] [place] [address] Dr. Keturah Fisher IG # 0.03 10e3/ul Normal 0.00-0.03 [facility] Comment on above: Performed By: #### L IPA, CMP, CRP, NAT #### [facility] Laboratory [address] [place] [address] Dr. Keturah Fisher IG % 0.3 % Normal 0.0-0.5 [facility] Comment on above: Performed By: #### L IPA, CMP, CRP, NAT #### [facility] Laboratory [address] [place] [address] Dr. Keturah Fisher LYMPH # 2.9 103/ul Normal 1.2-3.8 [facility] Comment on above: Performed By: #### L IPA, CMP, CRP, NAT #### [facility] Laboratory [address] [place] [address] Dr. Keturah Fisher Lymphocytes/100 WBC (Bld) 25.0 % Normal 20.5-60.0 [facility] Comment on above: Performed By: #### L IPA, CMP, CRP, NAT #### [facility] Laboratory [address] [place] [address] Dr. Keturah Fisher MANUAL DIFF REQ NO Normal [facility] Comment on above: Performed By: #### L IPA, CMP, CRP, NAT #### [facility] Laboratory [address] [place] [address] Dr. Keturah Fisher MCH (RBC) [Entitic mass] 33.3 pg Normal 26.7-34.0 [facility] Comment on above: Performed By: #### L IPA, CMP, CRP, NAT #### [facility] Laboratory [address] [place] [address] Dr. Keturah Fisher MCHC (RBC) [Mass/Vol] 34.3 g/dL Normal 29.9-35.2 [facility] Comment on above: Performed By: #### L IPA, CMP, CRP, NAT #### [facility] Laboratory [address] [place] [address] Dr. Keturah Fisher MCV (RBC) [Entitic vol] 96.9 fL Normal 81.0-99.0 [facility] Comment on above: Performed By: #### L IPA, CMP, CRP, NAT #### [facility] Laboratory [address] [place] [address] Dr. Keturah Fisher MONO # 0.7 103/ul Normal 0.3-0.8 [facility] Comment on above: Performed By: #### L IPA, CMP, CRP, NAT #### [facility] Laboratory [address] [place] [address] Dr. Keturah Fisher Monocytes/100 WBC (Bld) 5.6 % Normal 1.7-12.0 [facility] Comment on above: Performed By: #### L IPA, CMP, CRP, NAT #### [facility] Laboratory [address] [place] [address] Dr. Keturah Fisher NEUT # 7.8 103/ul Critically high 1.4-6.5 [facility] Comment on above: Performed By: #### L IPA, CMP, CRP, NAT #### [facility] Laboratory [address] [address] [address] Keturah Fisher Neutrophils/100 WBC (Bld) 67.3 % Normal 43.0-75.0 [facility] Comment on above: Performed By: #### L IPA, CMP, CRP, NAT #### [facility] Laboratory [address] [place] [address] Dr. Keturah Fisher Platelet mean volume (Bld) [Entitic vol] 9.5 fL Normal 9.5-13.5 [facility] Comment on above: Performed By: #### L IPA, CMP, CRP, NAT #### [facility] Laboratory [address] [place] [address] Dr. Keturah Fisher PLT 227 103/ul Normal 150-450 [facility] Comment on above: Performed By: #### L IPA, CMP, CRP, NAT #### [facility] Laboratory [address] [place] [address] Dr. Keturah Fisher RBC 4.18 106/ul Critically low 4.20-5.40 [facility] Comment on above: Performed By: #### L IPA, CMP, CRP, NAT #### [facility] Laboratory [address] [place] [address] Dr. Keturah Fisher WBC 11.5 103/ul Critically high 4.0-11.0 [facility] Comment on above: Performed By: #### L IPA, CMP, CRP, NAT #### [facility] Laboratory [address] [place] [address] Dr. Keturah Fisher LIPASEon 06-13-2022 Lipase [Catalytic activity/Vol] 168.0 U/L Normal 73.0-393.0 [facility] Comment on above: Performed By: #### L IPA, CMP, CRP, NAT #### [facility] Laboratory [address] [place] [address] Dr. Keturah Fisher PROF 14(COMP METB)on 023 Albumin [Mass/Vol] 3.6 g/dL Normal 3.4-5.0 [facility] Comment on above: Performed By: #### L IPA, CMP, CRP, NAT #### [facility] Laboratory [address] [address] [address] Keturah Fisher Albumin/Globulin [Mass ratio] 1.1 {ratio} Normal [facility] Comment on above: Performed By: #### L IPA, CMP, CRP, NAT #### [facility] Laboratory [address] [place] [address] Dr. Keturah Fisher ALP [Catalytic activity/Vol] 132 U/L Critically high 46-116 [facility] Comment on above: Performed By: #### L IPA, CMP, CRP, NAT #### [facility] Laboratory [address] [place] [address] Dr. Keturah Fisher ALT [Catalytic activity/Vol] 20 U/L Normal 14-59 [facility] Comment on above: Performed By: #### L IPA, CMP, CRP, NAT #### [facility] Laboratory [address] [place] [address] Dr. Keturah Fisher Anion gap [Moles/Vol] 13.7 mmol/L Normal [facility] Comment on above: Performed By: #### L IPA, CMP, CRP, NAT #### [facility] Laboratory [address] [place] [address] Dr. Keturah Fisher AST [Catalytic activity/Vol] 19 U/L Normal 15-37 [facility] Comment on above: Performed By: #### L IPA, CMP, CRP, NAT #### [facility] Laboratory [address] [place] [address] Dr. Keturah Fisher Bilirubin [Mass/Vol] 0.1 mg/dL Critically low 0.2-1.0 [facility] Comment on above: Performed By: #### L IPA, CMP, CRP, NAT #### [facility] Laboratory [address] [place] [address] Dr. Keturah Fisher Calcium [Mass/Vol] 10.1 mg/dL Normal 8.5-10.1 [facility] Comment on above: Performed By: #### L IPA, CMP, CRP, NAT #### [facility] Laboratory [address] [place] [address] Dr. Keturah Fsiher Chloride [Moles/Vol] 104 mmol/L Normal 98-107 [facility] Comment on above: Performed By: #### L IPA, CMP, CRP, NAT #### [facility] Laboratory [address] [address] [address] Keturah Fisher CO2 [Moles/Vol] 26.7 mmol/L Normal 21.0-32.0 [facility] Comment on above: Performed By: #### L IPA, CMP, CRP, NAT #### [facility] Laboratory [address] [address] [address] Keturah Fisher Creatinine [Mass/Vol] 0.83 mg/dL Normal 0.55-1.02 [facility] Comment on above: Performed By: #### L IPA, CMP, CRP, NAT #### [facility] [address] [address] [address] Keturah Fisher EGFR-AF NICARAGUAN >60 Normal >=60 [facility] Comment on above: Performed By: #### L IPA, CMP, CRP, NAT #### [facility] Laboratory [address] [place] [address] Dr. Keturah Fisher EGFR-NON AF NICARAGUAN >60 Normal >=60 [facility] Comment on above: Performed By: #### L IPA, CMP, CRP, NAT #### [facility] [address] [address] [address] Keturah Fisher Globulin (S) [Mass/Vol] 3.4 g/dL Normal [facility] Comment on above: Performed By: #### L IPA, CMP, CRP, NAT #### [facility] Laboratory [address] [address] [address] Keturah Fisher Glucose [Mass/Vol] 115 mg/dL Critically high 74-106 T [facility] Comment on above: Performed By: #### L IPA, CMP, CRP, NAT #### [facility] [address] [address] [address] Keturah Fisher Potassium [Moles/Vol] 3.4 mmol/L Critically low 3.5-5.1 [facility] Comment on above: Performed By: #### L IPA, CMP, CRP, NAT #### [facility] [address] [address] [address] Keturah Fisher Protein [Mass/Vol] 7.0 g/dL Normal 6.4-8.2 [facility] Comment on above: Performed By: #### L IPA, CMP, CRP, NAT #### [facility] [address] [address] [address] Keturah Fisher Sodium [Moles/Vol] 141 mmol/L Normal 136-145 [facility] Comment on above: Performed By: #### L IPA, CMP, CRP, NAT #### [facility] [address] [address] [address] Keturah Fisher Urea nitrogen [Mass/Vol] 9.0 mg/dL Normal 7.0-18.0 [facility] Comment on above: Performed By: #### L IPA, CMP, CRP, NAT #### [facility] [address] [address] [address] Keturah Fisher Urea nitrogen/Creatinine [Mass ratio] 10.8 mg/mg Normal [facility] Comment on above: Performed By: #### L IPA, CMP, CRP, NAT #### [facility] [address] [address] [address] Keturah Fisher XR ABD FLAT UP_PA [...] Date: 2022-06-13 17:10 Normal [facility] AMYLASEon 03-29-2022 Amylase [Catalytic activity/Vol] 141 U/L Critically high 25-115 [facility] Comment on above: Performed By: #### L IVER, LIPA, BMP, NAT ####[facility] [id number] [address]Dr. Keturah Fisher CBC AUTO DIFFon 03-29-2022 BASO # 0.1 103/ul Normal 0.0-0.1 [facility] Comment on above: Performed By: #### L IPA, CMP, CRP, NAT #### [facility] Laboratory [address] [address] [address] Keturah Fisher Basophils/100 WBC (Bld) 0.6 % Normal 0.2-2.0 [facility] Comment on above: Performed By: #### L IPA, CMP, CRP, NAT #### [facility] Laboratory [address] [place] [address] Dr. Keturah Fisher EO # 0.1 103/ul Normal 0.0-0.7 [facility] Comment on above: Performed By: #### L IPA, CMP, CRP, NAT #### [facility] Laboratory [address] [place] [address] Dr. Keturah Fisher Eosinophils/100 WBC (Bld) 0.7 % Critically low 0.9-7.0 [facility] Comment on above: Performed By: #### L IPA, CMP, CRP, NAT #### [facility] Laboratory [address] [place] [address] Dr. Keturah Fisher Erythrocyte distribution width (RBC) [Ratio] 12.9 % Normal 11.0-15.0 [facility] Comment on above: Performed By: #### L IPA, CMP, CRP, NAT #### [facility] Laboratory [address] [place] [address] Dr. Keturah Fisher Hematocrit (Bld) [Volume fraction] 39.7 % Normal 36.0-48.0 [facility] Comment on above: Performed By: #### L IPA, CMP, CRP, NAT #### [facility] Laboratory [address] [place] [address] Dr. Keturah Fisher Hemoglobin (Bld) [Mass/Vol] 14.7 g/dL Normal 12.0-16.0 [facility] Comment on above: Performed By: #### L IPA, CMP, CRP, NAT #### [facility] Laboratory [address] [address] [address] Keturah Fisher IG # 0.04 10e3/ul Critically high 0.00-0.03 [facility] Comment on above: Performed By: #### L IPA, CMP, CRP, NAT #### [facility] Laboratory [address] [place] [address] Dr. Keturah Fisher IG % 0.4 % Normal 0.0-0.5 [facility] Comment on above: Performed By: #### L IPA, CMP, CRP, NAT #### [facility] Laboratory [address] [place] [address] Dr. Keturah Fisher LYMPH # 2.1 103/ul Normal 1.2-3.8 [facility] Comment on above: Performed By: #### L IPA, CMP, CRP, NAT #### [facility] Laboratory [address] [place] [address] Dr. Keturah Fisher Lymphocytes/100 WBC (Bld) 21.2 % Normal 20.5-60.0 [facility] Comment on above: Performed By: #### L IPA, CMP, CRP, NAT #### [facility] Laboratory [address] [place] [address] Dr. Keturah Fisher MANUAL DIFF REQ NO Normal [facility] Comment on above: Performed By: #### L IPA, CMP, CRP, NAT #### [facility] Laboratory [address] [place] [address] Dr. Keturah Fisher MCH (RBC) [Entitic mass] 33.0 pg Normal 26.7-34.0 [facility] Comment on above: Performed By: #### L IPA, CMP, CRP, NAT #### [facility] Laboratory [address] [place] [address] Dr. Keturah Fisher MCHC (RBC) [Mass/Vol] 37.0 g/dL Critically high 29.9-35.2 [facility] Comment on above: Performed By: #### L IPA, CMP, CRP, NAT #### [facility] Laboratory [address] [place] [address] Dr. Keturah Fisher MCV (RBC) [Entitic vol] 89.0 fL Normal 81.0-99.0 [facility] Comment on above: Performed By: #### L IPA, CMP, CRP, NAT #### [facility] Laboratory [address] [address] [address] Keturah Fisher MONO # 1.0 103/ul Critically high 0.3-0.8 [facility] Comment on above: Performed By: #### L IPA, CMP, CRP, NAT #### [facility] Laboratory [address] [place] [address] Dr. Keturah Fisher Monocytes/100 WBC (Bld) 10.3 % Normal 1.7-12.0 [facility] Comment on above: Performed By: #### L IPA, CMP, CRP, NAT #### [facility] Laboratory [address] [place] [address] Dr. Keturah Fisher NEUT # 6.5 103/ul Normal 1.4-6.5 [facility] Comment on above: Performed By: #### L IPA, CMP, CRP, NAT #### [facility] Laboratory [address] [place] [address] Dr. Keturah Fisher Neutrophils/100 WBC (Bld) 66.8 % Normal 43.0-75.0 [facility] Comment on above: Performed By: #### L IPA, CMP, CRP, NAT #### [facility] Laboratory [address] [place] [address] Dr. Keturah Fisher Platelet mean volume (Bld) [Entitic vol] 9.2 fL Critically low 9.5-13.5 [facility] Comment on above: Performed By: #### L IPA, CMP, CRP, NAT #### [facility] Laboratory [address] [place] [address] Dr. Keturah Fisher PLT 229 103/ul Normal 150-450 [facility] Comment on above: Performed By: #### L IPA, CMP, CRP, NAT #### [facility] Laboratory [address] [place] [address] Dr. Keturah Fisher RBC 4.46 106/ul Normal 4.20-5.40 [facility] Comment on above: Performed By: #### L IPA, CMP, CRP, NAT #### [facility] Laboratory [address] [address] [address] Keturah Fisher WBC 9.7 103/ul Normal 4.0-11.0 [facility] Comment on above: Performed By: #### L IPA, CMP, CRP, NAT #### [facility] Laboratory [address] [address] [address] Keturah Fisher LACTATE/LACTIC ACIDon 2022 Lactate [Moles/Vol] 0.5 mmol/L Normal 0.4-1.9 [facility] Comment on above: Performed By: #### L IPA, CMP, CRP, NAT #### [facility] Laboratory [address] [address] [address] Keturah Fisher LIPASEon 03-29-2022 Lipase [Catalytic activity/Vol] 308.0 U/L Normal 73.0-393.0 [facility] Comment on above: Performed By: #### L IVER, LIPA, BMP, NAT ####[facility] [address] [address]DrGopal Fisher LIVER PROFILEon 03-29-2022 Albumin [Mass/Vol] 3.3 g/dL Critically low 3.4-5.0 [facility] Comment on above: Performed By: #### L IVER, LIPA, BMP, NAT ####[facility] [address] [address]DrGopal Fisher Albumin/Globulin [Mass ratio] 0.8 {ratio} Normal [facility] Comment on above: Performed By: #### L IVER, LIPA, BMP, NAT ####[facility] [address] [address]Dr. Keutrah Fisher ALP [Catalytic activity/Vol] 182 U/L Critically high 46-116 [facility] Comment on above: Performed By: #### L IVER, LIPA, BMP, NAT ####[facility] [address] [address]Dr. Keturah Fisher ALT [Catalytic activity/Vol] 16 U/L Normal 14-59 [facility] Comment on above: Performed By: #### L IVER, LIPA, BMP, NAT ####[facility] [address] [address]Dr. Keturah Fisher AST [Catalytic activity/Vol] 26 U/L Normal 15-37 [facility] Comment on above: Performed By: #### L IVER, LIPA, BMP, NAT ####[facility] [address] [address]Dr. Keturah Fisher BILI, CONJUGATED 0.0 mg/dL Normal 0.0-0.2 [facility] Comment on above: Performed By: #### L IVER, LIPA, BMP, NAT ####[facility] [address] [address]Dr. Keturah Fisher Bilirubin [Mass/Vol] 0.3 mg/dL Normal 0.2-1.0 [facility] Comment on above: Performed By: #### L IVER, LIPA, BMP, NAT ####[facility] [address] [place], [place] [address]Dr. Keturah Fisher Globulin (S) [Mass/Vol] 3.9 g/dL Normal [facility] Comment on above: Performed By: #### L IVER, LIPA, BMP, NAT ####[facility] [address] [address]Dr. Keturah Fisher Protein [Mass/Vol] 7.2 g/dL Normal 6.4-8.2 [facility] Comment on above: Performed By: #### L IVER, LIPA, BMP, NAT ####[facility] [address] [address]Dr. Keturah Fisher PROF CHEM 8 (BAS METB)on Anion gap [Moles/Vol] 14.6 mmol/L Normal [facility] Comment on above: Performed By: #### L IVER, LIPA, BMP, NAT ####[facility] [address] [address]Dr. Keturah Fisher Calcium [Mass/Vol] 10.1 mg/dL Normal 8.5-10.1 [facility] Comment on above: Performed By: #### L IVER, LIPA, BMP, NAT ####[facility] [address] [address]Dr. Keturah Fisher Chloride [Moles/Vol] 104 mmol/L Normal 98-107 [facility] Comment on above: Performed By: #### L IVER, LIPA, BMP, NAT ####[facility] [address] [address]Dr. Keturah Fisher CO2 [Moles/Vol] 24.8 mmol/L Normal 21.0-32.0 [facility] Comment on above: Performed By: #### L IVER, LIPA, BMP, NAT ####[facility] [address] [address]Dr. Keturah Fisher Creatinine [Mass/Vol] 0.61 mg/dL Normal 0.55-1.02 [facility] Comment on above: Performed By: #### L IVER, LIPA, BMP, NAT ####[facility] [address] [place], [place] [address]Dr. Keturah Fisher EGFR-AF NICARAGUAN >60 Normal >=60 [facility] Comment on above: Performed By: #### L IVER, LIPA, BMP, NAT ####[facility] [address] [place], [place] [address]Dr. Keturah Fisher EGFR-NON AF NICARAGUAN >60 Normal >=60 [facility] Comment on above: Performed By: #### L IVER, LIPA, BMP, NAT ####[facility] [address] [address]Dr. Keturah Fisher Glucose [Mass/Vol] 98 mg/dL Normal 74-106 [facility] Comment on above: Performed By: #### L IVER, LIPA, BMP, NAT ####[facility] [address] [place], [place] [address]Dr. Keturah Fisher Potassium [Moles/Vol] 4.4 mmol/L Normal 3.5-5.1 [facility] Comment on above: Performed By: #### L IVER, LIPA, BMP, NAT ####[facility] [address] [id number]. Keturah Fisher Sodium [Moles/Vol] 139 mmol/L Normal 136-145 [facility] Comment on above: Performed By: #### L ROB CHIN BMP, NAT ####[facility] [address] [place], [place] [address]Xw. Keturah Fisher Urea nitrogen [Mass/Vol] 7.0 mg/dL Normal 7.0-18.0 [facility] Comment on above: Performed By: #### L ROB CHIN BMP, NAT ####[facility] [address] [place], [place] [address]Xn. Keturah Fisher Urea nitrogen/Creatinine [Mass ratio] 11.5 mg/mg Normal [facility] Comment on above: Performed By: #### L ROB CHIN BMP, NAT ####[facility] [address] [place], [place] [address]Nh. Keturah Fisher Albumin [Mass/volume] in Ser um or PlasmaOrdered By: Agustin Llanes on 03-22-2022 Albumin [Mass/Vol] 4.1 g/dL 3.2-5.5 [facility] Automated erythrocytes count in urine sediment (number/area)Ordered By: Agustin Llanes on 03-22-2022 RBC Auto (Urine sed) [#/Area] 3-4 [HPF] 0-4 [facility] Automated leukocytes count i n urine sediment (number/area)Ordered By: Agustin Llanes on 03-22-2022 WBC Auto (Urine sed) [#/Area] 10-19 [HPF] 0-4 [facility] Basophils Auto (Bld) [#/Vol] Ordered By: Agustin Llanes on 03-22-2022 Basophils (Bld) [#/Vol] 0.1 10*3/uL 0.0-0.2 [facility] Basophils/100 WBC Auto (Bld) Ordered By: Agustin Llanes on 03-22-2022 Basophils/100 WBC (Bld) 0.9 % . [facility] Bilirubin Test strip Ql (U)O rdered By: Agustin Llanes on 03-22-2022 Bilirubin Ql (U) Negative Negative [facility] Color Auto (U)Ordered By: Vita Llanes on 03-22-2022 Color (U) Yellow Yellow [facility] Creatinine and Glomerular fi ltration rate.predicted panel (S/P/Bld)Ordered By: Agustin Llanes on 03-22-2022 Creatinine [Mass/Vol] 0.74 mg/dL 0.44-1.03 [facility] Direct bilirubin measurement Ordered By: Agustin Llanes on 03-22-2022 Bilirubin.direct [Mass/Vol] 0.3 mg/dL 0.0-0.4 [facility] Eosinophils Auto (Bld) [#/Vo l]Ordered By: Agustin Llanes on 03-22-2022 Eosinophils (Bld) [#/Vol] 0.1 10*3/uL 0.0-0.45 [facility] Eosinophils/100 WBC Auto (Bl d)Ordered By: Agustin Llanes on 03-22-2022 Eosinophils/100 WBC (Bld) 0.7 % . [facility] Erythrocyte distribution wid th Auto (RBC) [Ratio]Ordered By: Agustin Llanes on 03-22-2022 Erythrocyte distribution width (RBC) [Ratio] 13.9 % 11.9-15.3 [facility] Estimated glomerular filtrat ion rate (GFR) non- AmericanOrdered By: Agustin Llanes on 03-22-2022 GFR/1.73 sq M.predicted among non-blacks MDRD (S/P/Bld) [Vol rate/Area] > 60 mL/Min [facility] Globulin Calc (S) [Mass/Vol] Ordered By: Agustin Llanes on 03-22-2022 Globulin (S) [Mass/Vol] 3.1 g/dL [facility] HCG ( test) IA.rapi d Ql (U)Ordered By: Agustin Llanes on 03-22-2022 HCG ( test) Ql (U) Negative [facility] Hematocrit Auto (Bld) [Volum e fraction]Ordered By: Agustin Llanes on 03-22-2022 Hematocrit (Bld) [Volume fraction] 45.7 % 34.0-46.4 [facility] Hemoglobin [Mass/volume] in BloodOrdered By: Agustin Llanes on 03-22-2022 Hemoglobin (Bld) [Mass/Vol] 15.2 g/dL 11.8-15.4 [facility] Ketones Auto test strip (U) [Mass/Vol]Ordered By: Agustin Llanes on 03-22-2022 Ketones (U) [Mass/Vol] Negative Negative [facility] - Chemistry and C hemistry - challengeOrdered By: Agustin Llanes on 03-22-2022 Lipase [Catalytic activity/Vol] 122.0 U/L 22-51 [facility] Laboratory - UrinalysisOrder ed By: Agustin Llanes on 03-22-2022 Hyaline casts LM Ql (Urine sed) 0-8 [LPF] 0-8 [facility] Leukocytes [#/volume] correc aurelia for nucleated erythrocytes in Blood by Automated counOrdered By: Agustin Llanes on 03-22-2022 WBC corrected for nucl RBC Auto (Bld) [#/Vol] 12.4 10*3/uL 3.8-11.6 [facility] Lymphocytes Auto (Bld) [#/Vo l]Ordered By: Agustin Llanes on 03-22-2022 Lymphocytes (Bld) [#/Vol] 2.2 10*3/uL 1.00-4.8 [facility] Lymphocytes/100 WBC Auto (Bl d)Ordered By: Agustin Llanes on 03-22-2022 Lymphocytes/100 WBC (Bld) 18.0 % . [facility] MCH Auto (RBC) [Entitic mass ]Ordered By: Agustin Llanes on 03-22-2022 MCH (RBC) [Entitic mass] 32.5 pg 24.7-34.3 [facility] MCHC Auto (RBC) [Mass/Vol]Or dered By: Agustin Llanes on 03-22-2022 MCHC (RBC) [Mass/Vol] 33.2 g/dL 32.0-35.0 [facility] MCV Auto (RBC) [Entitic vol] Ordered By: Agustin Llanes on 03-22-2022 MCV (RBC) [Entitic vol] 98.0 fL 80-100 [facility] Monocyte distribution width [Entitic volume] in Blood by AutomatedOrdered By: Agustin Llanes on 03-22-2022 Monocyte distribution width Auto (Bld) [Entitic vol] 18.78 % 0.00-20.00 [facility] Monocytes Auto (Bld) [#/Vol] Ordered By: Agustin Llanes on 03-22-2022 Monocytes (Bld) [#/Vol] 1.0 10*3/uL 0.0-0.8 [facility] Monocytes/100 WBC Auto (Bld) Ordered By: Agustin Llanes on 03-22-2022 Monocytes/100 WBC (Bld) 8.0 % . [facility] Neutrophils Auto (Bld) [#/Vo l]Ordered By: Agustin Llanes on 03-22-2022 Neutrophils (Bld) [#/Vol] 9.0 10*3/uL 1.8-7.7 [facility] Neutrophils/100 WBC Auto (Bl d)Ordered By: Agustin Llanes on 03-22-2022 Neutrophils/100 WBC (Bld) 72.4 % . [facility] Nitrite Test strip Ql (U)Ord ered By: Agustin Llanes on 03-22-2022 Nitrite Ql (U) Positive Negative [facility] No Panel InformationOrdered By: Agustin Llanes on 03-22-2022 Estimated GFR () > 60 mL/Min [facility] Comment on above: GFR estimated refere nce range: According to KDOQI guidelines, <60 ml/min/1.73m2 is sufficient to diagnose a patient with chronic kidney disease. Pharmacy Creatinine Clearance (Chem 70.34 [facility] Nucleated erythrocytes [Pres ence] in Blood by Automated countOrdered By: Agustin Llanes on 03-22-2022 Nucleated RBC Auto Ql (Bld) 0.0 /100{WBC} 0-0.5 [facility] Platelet mean volume Auto (B ld) [Entitic vol]Ordered By: Agustin Llanes on 03-22-2022 Platelet mean volume (Bld) [Entitic vol] 8.0 fL 6.3-10.7 [facility] Platelets Auto (Bld) [#/Vol] Ordered By: Agustin Llanes on 03-22-2022 Platelets (Bld) [#/Vol] 266 10*3/uL 150-450 [facility] Protein Auto test strip (U) [Mass/Vol]Ordered By: Agustin Llanes on 03-22-2022 Protein (U) [Mass/Vol] Negative Negative [facility] Protein [Mass/volume] in Ser um or PlasmaOrdered By: Agustin Llanes on 03-22-2022 Protein [Mass/Vol] 7.2 g/dL 6.1-7.9 [facility] RBC Auto (Bld) [#/Vol]Ordere d By: Agustin Llanes on 03-22-2022 RBC (Bld) [#/Vol] 4.67 10*6/uL 3.60-5.00 [facility] Serum or plasma alanine hughes otransferase measurement without P-5'-P (enzymatic activiOrdered By: Agustin Llanes on 03-22-2022 ALT No additional P-5'-P [Catalytic activity/Vol] 19 U/L 10-60 [facility] Serum or plasma albumin/glob ulin mass ratioOrdered By: Agustin Llanes on 03-22-2022 Albumin/Globulin [Mass ratio] 1.3 {ratio} [facility] Serum or plasma alkaline jaqueline sphatase measurement (enzymatic activity/volume)Ordered By: Agustin Llanes on 03-22-2022 ALP [Catalytic activity/Vol] 156 U/L 32-92 [facility] Serum or plasma anion gap de terminationOrdered By: Agustin Llanes on 03-22-2022 Anion gap [Moles/Vol] 12.6 mmol/L 6.0-15.0 [facility] Serum or plasma aspartate am inotransferase measurement (enzymatic activity/volume)Ordered By: Agustin Llanes on 03-22-2022 AST [Catalytic activity/Vol] 29 U/L 10-42 [facility] Serum or plasma calcium priscilla urement (mass/volume)Ordered By: Agustin Llanes on 03-22-2022 Calcium [Mass/Vol] 9.9 mg/dL 8.2-10.2 [facility] Serum or plasma chloride daron surement (moles/volume)Ordered By: Agustin Llanes on 03-22-2022 Chloride [Moles/Vol] 103 mmol/L 95-114 [facility] Serum or plasma glucose priscilla urement (mass/volume)Ordered By: Agustin Llanes on 03-22-2022 Glucose [Mass/Vol] 106 mg/dL 70-100 [facility] Comment on above: ADA recommended refe rence rangeRandom Glucose Reference Range is dependent on time and content of last meal. Glucose of more than 200 mg/dL in a nonstressed, ambulatory subject supports the diagnosis of Diabetes Mellitus. Serum or plasma non-glucuron idated bilirubin measurement (mass/volume)Ordered By: Agustin Llanes on 03-22-2022 Bilirubin.indirect [Mass/Vol] 0.2 mg/dL [facility] Serum or plasma potassium me asurement (moles/volume)Ordered By: Agustin Llanes on 03-22-2022 Potassium [Moles/Vol] 4.5 mmol/L 3.5-5.1 [facility] Serum or plasma sodium measu rement (moles/volume)Ordered By: Agustin Llanes on 03-22-2022 Sodium [Moles/Vol] 138 mmol/L 136-146 [facility] Serum or plasma total biliru bin measurement (mass/volume)Ordered By: Agustin Llanes on 03-22-2022 Bilirubin [Mass/Vol] 0.5 mg/dL 0.3-1.2 [facility] Serum or plasma total carbon dioxide measurement (moles/volume)Ordered By: Agustin Llanes on 03-22-2022 CO2 [Moles/Vol] 26.9 mmol/L 22.0-30.[address] [facility] Serum or plasma urea nitroge n measurement (mass/volume)Ordered By: Agustin Llanes on 03-22-2022 Urea nitrogen [Mass/Vol] 8 mg/dL 9- [facility] Specific gravity Auto test s trip (U) [Rel density]Ordered By: Agustin Llanes on 03-22-2022 Specific gravity (U) [Rel density] 1.011 1.001-1.03 0 [facility] Squamous epithelial cells de tection in urine sediment by light microscopyOrdered By: Agustin Llanes on 03-22-2022 Epithelial cells.squamous LM Ql (Urine sed) 1-2 [HPF] 0-2 [facility] Urine bacteria detection by automated methodOrdered By: Agustin Llanes on 03-22-2022 Bacteria Auto Ql (U) 1+ None Seen [facility] Urine clarity by refractomet ry automatedOrdered By: Agustin Llanes on 03-22-2022 Clarity Refractometry automated (U) Clear Clear [facility] Urine glucose measurement by automated test strip (mass/volume)Ordered By: Agustin Llanes on 03-22-2022 Glucose Auto test strip (U) [Mass/Vol] Normal mg/dL Normal [facility] Urine hemoglobin detection b y automated test stripOrdered By: Agustin Llanes on 03-22-2022 Hemoglobin Auto test strip Ql (U) Negative Negative [facility] Urine leukocyte esterase det ection by automated test stripOrdered By: Agustin Llanes on 03-22-2022 Leukocyte esterase Auto test strip Ql (U) 2+ Negative [facility] Urobilinogen Auto test strip (U) [Mass/Vol]Ordered By: Agustin Llanes on 03-22-2022 Urobilinogen (U) [Mass/Vol] Normal mg/dL Normal [facility] WBC Auto (Bld) [#/Vol]Ordere d By: Agustin Llanes on 03-22-2022 WBC (Bld) [#/Vol] 12.4 10*3/uL 3.8-11.6 [facility] pH Auto test strip (U)Ordere d By: Agustin Llanes on 03-22-2022 pH (U) 5.5 [pH] 5.0-9.0 [facility] AMYLASEon 03-19-2022 Amylase [Catalytic activity/Vol] 297 U/L Critically high 25-115 [facility] Comment on above: Performed By: #### L IPA, CMP, CRP, NAT #### [facility] Laboratory [address] [place] [address] Dr. Keturah Fisher CBC AUTO DIFFon 03-19-2022 BASO # 0.1 103/ul Normal 0.0-0.1 [facility] Comment on above: Performed By: #### L IPA, CMP, CRP, NAT #### [facility] Laboratory [address] [address] [address] Keturah Fisher Basophils/100 WBC (Bld) 0.6 % Normal 0.2-2.0 [facility] Comment on above: Performed By: #### L IPA, CMP, CRP, NAT #### [facility] Laboratory [address] [address] [address] Keturah Fisher EO # 0.1 103/ul Normal 0.0-0.7 [facility] Comment on above: Performed By: #### L IPA, CMP, CRP, NAT #### [facility] Laboratory [address] [place] [address] Dr. Keturah Fisher Eosinophils/100 WBC (Bld) 0.5 % Critically low 0.9-7.0 [facility] Comment on above: Performed By: #### L IPA, CMP, CRP, NAT #### [facility] Laboratory [address] [place] [address] Dr. Keturah Fisher Erythrocyte distribution width (RBC) [Ratio] 13.4 % Normal 11.0-15.0 [facility] Comment on above: Performed By: #### L IPA, CMP, CRP, NAT #### [facility] Laboratory [address] [place] [address] Dr. Keturah Fisher Hemoglobin (Bld) [Mass/Vol] 15.7 g/dL Normal 12.0-16.0 [facility] Comment on above: Performed By: #### L IPA, CMP, CRP, NAT #### [facility] Laboratory [address] [place] [address] Dr. Keturah Fisher IG # 0.06 10e3/ul Critically high 0.00-0.03 [facility] Comment on above: Performed By: #### L IPA, CMP, CRP, NAT #### [facility] Laboratory [address] [place] [address] Dr. Keturah Fisher IG % 0.4 % Normal 0.0-0.5 [facility] Comment on above: Performed By: #### L IPA, CMP, CRP, NAT #### [facility] Laboratory [address] [place] [address] Dr. Keturah Fisher LYMPH # 2.6 103/ul Normal 1.2-3.8 [facility] Comment on above: Performed By: #### L IPA, CMP, CRP, NAT #### [facility] Laboratory [address] [place] [address] Dr. Keturah Fisher Lymphocytes/100 WBC (Bld) 18.1 % Critically low 20.5-60.0 [facility] Comment on above: Performed By: #### L IPA, CMP, CRP, NAT #### [facility] Laboratory [address] [place], [place] [id number] Dr. Keturah Fisher MANUAL DIFF REQ NO Normal [facility] Comment on above: Performed By: #### L IPA, CMP, CRP, NAT #### [facility] Laboratory [address] [place] [address] Dr. Keturah Fisher MCH (RBC) [Entitic mass] 32.4 pg Normal 26.7-34.0 [facility] Comment on above: Performed By: #### L IPA, CMP, CRP, NAT #### [facility] Laboratory [address] [place] [address] Dr. Keturah Fisher MCHC (RBC) [Mass/Vol] 32.5 g/dL Normal 29.9-35.2 [facility] Comment on above: Performed By: #### L IPA, CMP, CRP, NAT #### [facility] Laboratory [address] [place] [address] Dr. Keturah Fisher MCV (RBC) [Entitic vol] 99.8 fL Critically high 81.0-99.0 [facility] Comment on above: Performed By: #### L IPA, CMP, CRP, NAT #### [facility] Laboratory [address] [place] [address] Dr. Keturah Fisher MONO # 0.9 103/ul Critically high 0.3-0.8 [facility] Comment on above: Performed By: #### L IPA, CMP, CRP, NAT #### [facility] Laboratory [address] [place] [address] Dr. Keturah Fisher Monocytes/100 WBC (Bld) 5.9 % Normal 1.7-12.0 [facility] Comment on above: Performed By: #### L IPA, CMP, CRP, NAT #### [facility] Laboratory [address] [place] [address] Dr. Keturah Fisher NEUT # 10.8 103/ul Critically high 1.4-6.5 [facility] Comment on above: Performed By: #### L IPA, CMP, CRP, NAT #### [facility] Laboratory [address] [place] [address] Dr. Keturah Fisher Neutrophils/100 WBC (Bld) 74.5 % Normal 43.0-75.0 [facility] Comment on above: Performed By: #### L IPA, CMP, CRP, NAT #### [facility] Laboratory [address] [place] [address] Dr. Keturah Fisher Platelet mean volume (Bld) [Entitic vol] 9.7 fL Normal 9.5-13.5 [facility] Comment on above: Performed By: #### L IPA, CMP, CRP, NAT #### [facility] Laboratory [address] [place] [address] Dr. Keturah Fisher PLT 279 103/ul Normal 150-450 [facility] Comment on above: Performed By: #### L IPA, CMP, CRP, NAT #### [facility] Laboratory [address] [place] [address] Dr. Keturah Fisher RBC 4.84 106/ul Normal 4.20-5.40 [facility] Comment on above: Performed By: #### L IPA, CMP, CRP, NAT #### [facility] Laboratory [address] [place] [address] Dr. Keturah Fisher WBC 14.5 103/ul Critically high 4.0-11.0 [facility] Comment on above: Performed By: #### L IPA, CMP, CRP, NAT #### [facility] Laboratory [address] [place] [address] ABD/PELVIS WO CONon [...] Date: 2022-03-19 19:10 Normal [facility] LIPASEon 03-19-2022 Lipase [Catalytic activity/Vol] 1573.0 U/L Critically high 73.0-393.0 [facility] Comment on above: Performed By: #### L IPA, CMP, CRP, NAT #### [facility] Laboratory [address] [address] [address] Keturah Fisher PROF 14(COMP METB)on 023 Albumin [Mass/Vol] 4.3 g/dL Normal 3.4-5.0 [facility] Comment on above: Performed By: #### L IPA, CMP, CRP, NAT #### [facility] Laboratory [address] [address] [address] Keturah Fisher Albumin/Globulin [Mass ratio] 1.1 {ratio} Normal [facility] Comment on above: Performed By: #### L IPA, CMP, CRP, NAT #### [facility] [facility] [address] [address] [address] Keturah Fisher ALP [Catalytic activity/Vol] 222 U/L Critically high 46-116 [facility] Comment on above: Performed By: #### L IPA, CMP, CRP, NAT #### [facility] [address] [address] [address] Keturah Fisher ALT [Catalytic activity/Vol] 18 U/L Normal 14-59 [facility] Comment on above: Performed By: #### L IPA, CMP, CRP, NAT #### [facility] [address] [address] [address] Keturah Fisher Anion gap [Moles/Vol] 10.7 mmol/L Normal [facility] Comment on above: Performed By: #### L IPA, CMP, CRP, NAT #### [facility] [address] [place] [address] Dr. Keturah Fisher AST [Catalytic activity/Vol] 19 U/L Normal 15-37 [facility] Comment on above: Performed By: #### L IPA, CMP, CRP, NAT #### [facility] [address] [place] [address] Dr. Keturah Fisher Bilirubin [Mass/Vol] 0.2 mg/dL Normal 0.2-1.0 [facility] Comment on above: Performed By: #### L IPA, CMP, CRP, NAT #### [facility] [address] [place] [address] Dr. Keturah Fisher Calcium [Mass/Vol] 10.2 mg/dL Critically high 8.5-10.1 [facility] Comment on above: Performed By: #### L IPA, CMP, CRP, NAT #### [facility] [address] [place] [address] Dr. Keturah Fisher Chloride [Moles/Vol] 101 mmol/L Normal 98-107 [facility] Comment on above: Performed By: #### L IPA, CMP, CRP, NAT #### [facility] [address] [place] [address] Dr. Keturah Fisher CO2 [Moles/Vol] 29.1 mmol/L Normal 21.0-32.0 [facility] Comment on above: Performed By: #### L IPA, CMP, CRP, NAT #### [facility] [address] [address] [address] Keturah Fisher Creatinine [Mass/Vol] 0.73 mg/dL Normal 0.55-1.02 [facility] Comment on above: Performed By: #### L IPA, CMP, CRP, NAT #### [facility] [address] [address] [address] Keturah Fisher EGFR-AF NICARAGUAN >60 Normal >=60 [facility] Comment on above: Performed By: #### L IPA, CMP, CRP, NAT #### [facility] [address] [address] [address] Keturah Fisher EGFR-NON AF NICARAGUAN >60 Normal >=60 [facility] Comment on above: Performed By: #### L IPA, CMP, CRP, NAT #### [facility] [address] [address] [address] Keturah Fisher Globulin (S) [Mass/Vol] 4.0 g/dL Normal [facility] Comment on above: Performed By: #### L IPA, CMP, CRP, NAT #### [facility] [address] [address] [address] Keturah Fisher Glucose [Mass/Vol] 92 mg/dL Normal 74-106 [facility] Comment on above: Performed By: #### L IPA, CMP, CRP, NAT #### [facility] [address] [address] [address] Keturah Fisher Potassium [Moles/Vol] 3.8 mmol/L Normal 3.5-5.1 [facility] Comment on above: Performed By: #### L IPA, CMP, CRP, NAT #### [facility] [address] [address] [address] Keturah Fisher Protein [Mass/Vol] 8.3 g/dL Critically high 6.4-8.2 [facility] Comment on above: Performed By: #### L IPA, CMP, CRP, NAT #### [facility] [address] [address] [address] Keturah Fisher Sodium [Moles/Vol] 137 mmol/L Normal 136-145 [facility] Comment on above: Performed By: #### L IPA, CMP, CRP, NAT #### [facility] [address] [address] [address] Keturah Fisher Urea nitrogen [Mass/Vol] 10.0 mg/dL Normal 7.0-18.0 [facility] Comment on above: Performed By: #### L IPA, CMP, CRP, NAT #### [facility] [address] [address] [address] Keturah Fisher Urea nitrogen/Creatinine [Mass ratio] 13.7 mg/mg Normal [facility] Comment on above: Performed By: #### L IPA, CMP, CRP, NAT #### [facility] [address] [address] [address] Keturah Fisher PROTIMEon 03-19-2022 INR Coag (PPP) [Relative time] {INR} Normal [facility] Comment on above: Performed By: #### P TT, PT ####[facility] [address] [place], [place] [address]Dr. Keturah Fisher INR GUIDELINES SEE BELOW Normal [facility] Comment on above: Result Comment: KARLY RED INR: 2.0 - 3.0 CONDITIONS NOT LISTED BELOW 2.5 - 3.5 FOR PROSTHETIC HEART VALVE REPLACEMENT 2.5 - 3.5 RECURRENT THROMBOSIS Performed By: #### P TT, PT ####[facility] [address] [address]Dr. Keturah Fisher PT Coag (PPP) [Time] 9.4 s Normal 9.0-11.6 [facility] Comment on above: Performed By: #### P TT, PT ####[facility] [address] [address]Dr. Keturah Fisher PTTon 03-19-2022 aPTT Coag (Bld) [Time] 26.1 s Normal 22.3-36.2 [facility] Comment on above: Performed By: #### P TT, PT ####[facility] [address] [address]Dr. Keturah Fisher TROPONIN, HIGH SENSITIVITYon 03-19-2022 HSTROP 4.0 pg/mL Normal 4.0-51.3 [facility] Comment on above: Result Comment: CUT- OFF POINTS HAVE BEEN ESTABLISHED BASED ON THE FOURTH UNIVERSAL DEFINITIONS OF MYOCARDIAL INFARCTION. THE UPPER REFERENCE LIMIT (URL) OF TROPONIN, DEFINED THE 99TH PERCENTILE OF cTnI DISTRIBUTION IN A REFERENCE POPULATION, HAS BEEN CONFIRMED THE DECISION THRESHOLD FOR VA DIAGNOSIS. Performed By: #### L IPA, CMP, CRP, NAT #### [facility] [address] [place], [place] [address] Dr. 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 Mental [...] si (more content not included)... LAB, [facility] Radiology Study observation (narrative) [facility] BONE DENSITY AXIAL (HIP, PEL VIS, [...] interpreted this study is a Certified Clinical Fire Fighters Dispatcher by the International Society of Clinical Densitometry Maulik Reed M.D., CCD. OLOGY EXAM: BONE DENSITY A XIAL (HIP, PELVIS, SPINE) 01/27/2022 15:34 PM TECHNIQUE: DXA scanning using a [employer] Advance bone densitometer at the [facility] was performed on 01/27/2022 15:34 PM [...] 15:34 PM TECHNIQUE: DXA scanning using a [employer] Advance bone densitometer at the [facility] was performed on 01/27/2022 15:34 PM [...] interpreted this study is a Certified Clinical Fire Fighters Dispatcher by the International Society of Clinical Densitometry Maulik Reed M.D., CCD. [facility] Radiology Study observation (narrative) [facility] BONE DENSITY AXIAL (HIP, PEL VIS, SPINE)Ordered By: Maulik Reed on 01-27-2022 [facility] Work Phone: CBC AUTO DIFFon 01-15-2022 BASO # 0.1 103/ul Normal 0.0-0.1 [facility] Comment on above: Performed By: #### C BC ####[facility] [address] [address]Dr. Keturah Fisher Basophils/100 WBC (Bld) 0.9 % Normal 0.2-2.0 [facility] Comment on above: Performed By: #### C BC ####[facility] [address] [address]Dr. Keturah Fisher EO # 0.2 103/ul Normal 0.0-0.7 [facility] Comment on above: Performed By: #### C BC ####[facility] [address] [address]Dr. Keturah Fisher Eosinophils/100 WBC (Bld) 2.8 % Normal 0.9-7.0 [facility] Comment on above: Performed By: #### C BC ####[facility] [address] [phone]. Keturah Fisher Erythrocyte distribution width (RBC) [Ratio] 12.9 % Normal 11.0-15.0 [facility] Comment on above: Performed By: #### C BC ####[facility] [address] [phone]. Keturah Fisher Hematocrit (Bld) [Volume fraction] 41.7 % Normal 36.0-48.0 [facility] Comment on above: Performed By: #### C BC ####[facility] [address] [address]Dr. Keturah Fisher Hemoglobin (Bld) [Mass/Vol] 14.0 g/dL Normal 12.0-16.0 [facility] Comment on above: Performed By: #### C BC ####[facility] [address] [phone]. Keturah Fisher IG # 0.01 10e3/ul Normal 0.00-0.03 [facility] Comment on above: Performed By: #### C BC ####[facility] [address] [phone]. Keturah Fisher IG % 0.1 % Normal 0.0-0.5 [facility] Comment on above: Performed By: #### C BC ####[facility] [address] [address]Dr. Keturah Fisher LYMPH # 2.4 103/ul Normal 1.2-3.8 [facility] Comment on above: Performed By: #### C BC ####[facility] [address] [address]Dr. Keturah Fisher Lymphocytes/100 WBC (Bld) 32.0 % Normal 20.5-60.0 The [facility] Comment on above: Performed By: #### C BC ####[facility] [address] [address]Dr. Elisaeli Fisher MANUAL DIFF REQ NO Normal [facility] Comment on above: Performed By: #### C BC ####[facility] [address] [address]Dr. Keturah Fisher MCH (RBC) [Entitic mass] 32.6 pg Normal 26.7-34.0 The [facility] Comment on above: Performed By: #### C BC ####[facility] [address] [address]Dr. Keturah Fsiher MCHC (RBC) [Mass/Vol] 33.6 g/dL Normal 29.9-35.2 The [facility] Comment on above: Performed By: #### C BC ####[facility] [address] [address]Dr. Keturah Fisher MCV (RBC) [Entitic vol] 97.0 fL Normal 81.0-99.0 The [facility] Comment on above: Performed By: #### C BC ####[facility] [address] [phone]. Keturah Fisher MONO # 0.7 103/ul Normal 0.3-0.8 The [facility] Comment on above: Performed By: #### C BC ####[facility] [address] [phone]. Keturah Fisher Monocytes/100 WBC (Bld) 9.5 % Normal 1.7-12.0 The [facility] Comment on above: Performed By: #### C BC ####[facility] [address] [phone]. Keturah Fisher NEUT # 4.1 103/ul Normal 1.4-6.5 The [facility] Comment on above: Performed By: #### C BC ####[facility] [address] [phone]. Keturah Fisher Neutrophils/100 WBC (Bld) 54.7 % Normal 43.0-75.0 The [facility] Comment on above: Performed By: #### C BC ####[facility] [address] [phone]. Keturah Fisher Platelet mean volume (Bld) [Entitic vol] 9.6 fL Normal 9.5-13.5 The [facility] Comment on above: Performed By: #### C BC ####[facility] [address] [phone]. Keturah Fisher PLT 235 103/ul Normal 150-450 The [facility] Comment on above: Performed By: #### C BC ####[facility] [address] [phone]. Keturah Fisher RBC 4.30 106/ul Normal 4.20-5.40 The [facility] Comment on above: Performed By: #### C BC ####[facility] [address] [phone]. Keturah Fisher WBC 7.6 103/ul Normal 4.0-11.0 The [facility] Comment on above: Performed By: #### C BC ####[facility] [address] [place], [place] [address]Dr. Keturah Fisher ER URINE PROFILEon 2 Bilirubin Ql (U) Negative Normal NEGATIVE [facility] Comment on above: Performed By: #### L IPA, CMP, CRP, NAT #### [facility] [address] [place] [address] Dr. Keturah Fisher Clarity (U) CLEAR Normal CLEAR [facility] Comment on above: Performed By: #### L IPA, CMP, CRP, NAT #### [facility] [address] [address] [address] Keturah Fisher Color (U) YELLOW Normal YELLOW [facility] Comment on above: Performed By: #### L IPA, CMP, CRP, NAT #### [facility] [address] [place] [address] Dr. Keturah BAH A micrscopic examina tion will be performed if indicated. Normal The [facility] Comment on above: Performed By: #### L IPA, CMP, CRP, NAT #### [facility] [address] [place] [address] Dr. Keturah Fisher Glucose Ql (U) Negative Normal NEGATIVE [facility] Comment on above: Performed By: #### L IPA, CMP, CRP, NAT #### [facility] [address] [place] [address] Dr. Keturah Fisher Hemoglobin Ql (U) Negative Normal NEGATIVE [facility] Comment on above: Performed By: #### L IPA, CMP, CRP, NAT #### [facility] [address] [place] [address] Dr. Keturah Fisher Ketones Ql (U) Negative Normal NEGATIVE [facility] Comment on above: Performed By: #### L IPA, CMP, CRP, NAT #### [facility] [address] [place] [address] Dr. Keturah Fisher LEUKOCYTES Negative Normal NEGATIVE [facility] Comment on above: Performed By: #### L IPA, CMP, CRP, NAT #### [facility] [address] [place] [address] Dr. Keturah Fisher Nitrite Ql (U) Negative Normal NEGATIVE [facility] Comment on above: Performed By: #### L IPA, CMP, CRP, NAT #### [facility] [address] [place] [address] Dr. Keturah Fisher pH (U) 5.5 [pH] Normal 5-9 [facility] Comment on above: Performed By: #### L IPA, CMP, CRP, NAT #### [facility] [address] [place] [address] Dr. Keturah Fisher SPEC GRAVITY >=1.030 Abnormal 1.005-<=1. [address]25 [facility] Comment on above: Performed By: #### L IPA, CMP, CRP, NAT #### [facility] [address] [place] [address] Dr. Keturah Fisher UA PROTEIN Negative Normal NEGATIVE/ TRACE [facility] Comment on above: Performed By: #### L IPA, CMP, CRP, NAT #### [facility] [address] [place] [address] Dr. Keturah Fisher UR MICRO IND NOT INDICATED Normal [facility] Comment on above: Performed By: #### L IPA, CMP, CRP, NAT #### [facility] [address] [place] [address] Dr. Keturah Fisher Urobilinogen Qn (U) 0.2 {Marizol'U}/dL Normal 0.2 - 1. 0 [facility] Comment on above: Performed By: #### L IPA, CMP, CRP, NAT #### [facility] [address] [place] [address] Dr. Keturah Fisher LIPASEon 01-15-2022 Lipase [Catalytic activity/Vol] 572.0 U/L Critically high 73.0-393.0 [facility] Comment on above: Performed By: #### C BC #### [facility] [address] [place] [address] Dr. Keturah Fisher URon 01-15-2022 , QUAL Negative Normal NEGATIVE [facility] Comment on above: Performed By: #### L IPA, CMP, CRP, NAT #### [facility] [address] [place] [address] Dr. Keturah Fisher PROF 14(COMP METB)on 022 Albumin [Mass/Vol] 3.8 g/dL Normal 3.4-5.0 [facility] Comment on above: Performed By: #### C BC #### [facility] [address] [place] [address] Dr. Keturah Fisher Albumin/Globulin [Mass ratio] 1.1 {ratio} Normal [facility] Comment on above: Performed By: #### C BC #### [facility] [address] [place] [address] Dr. Keturah Fisher ALP [Catalytic activity/Vol] 151 U/L Critically high 46-116 [facility] Comment on above: Performed By: #### C BC #### [facility] [address] [place] [address] Dr. Keturah Fisher ALT [Catalytic activity/Vol] 14 U/L Normal 14-59 [facility] Comment on above: Performed By: #### C BC #### [facility] [address] [place] [address] Dr. Keturah Fisher Anion gap [Moles/Vol] 5.5 mmol/L Normal [facility] Comment on above: Performed By: #### C BC #### [facility] [address] [place] [address] Dr. Keturah Fisher AST [Catalytic activity/Vol] 16 U/L Normal 15-37 [facility] Comment on above: Performed By: #### C BC #### [facility] [address] [place] [address] Dr. Keturah Fisher Bilirubin [Mass/Vol] 0.1 mg/dL Critically low 0.2-1.0 [facility] Comment on above: Performed By: #### C BC #### [facility] [address] [place] [address] Dr. Keturah Fisher Calcium [Mass/Vol] 9.5 mg/dL Normal 8.5-10.1 [facility] Comment on above: Performed By: #### C BC #### [facility] [address] [place] [address] Dr. Keturah Fisher Chloride [Moles/Vol] 105 mmol/L Normal 98-107 [facility] Comment on above: Performed By: #### C BC #### [facility] [address] [place] [address] Dr. Keturah Fisher CO2 [Moles/Vol] 30.0 mmol/L Normal 21.0-32.0 [facility] Comment on above: Performed By: #### C BC #### [facility] [address] [place] [address] Dr. Keturah Fisher Creatinine [Mass/Vol] 0.90 mg/dL Normal 0.55-1.02 [facility] Comment on above: Performed By: #### C BC #### [facility] [address] [place] [address] Dr. Keturah Fisher EGFR-AF NICARAGUAN >60 Normal >=60 [facility] Comment on above: Performed By: #### C BC #### [facility] [address] [place] [address] Dr. Keturah Fisher EGFR-NON AF NICARAGUAN >60 Normal >=60 [facility] Comment on above: Performed By: #### C BC #### [facility] [address] [place] [address] Dr. Keturah Fisher Globulin (S) [Mass/Vol] 3.4 g/dL Normal [facility] Comment on above: Performed By: #### C BC #### [facility] [address] [place] [address] Dr. Keturah Fisher Glucose [Mass/Vol] 82 mg/dL Normal 74-106 [facility] Comment on above: Performed By: #### C BC #### [facility] [address] [place] [address] Dr. Keturah Fisher Potassium [Moles/Vol] 3.5 mmol/L Normal 3.5-5.1 [facility] Comment on above: Performed By: #### C BC #### [facility] [address] [place] [address] Dr. Keturah Fisher Protein [Mass/Vol] 7.2 g/dL Normal 6.4-8.2 [facility] Comment on above: Performed By: #### C BC #### [facility] [address] [place] [address] Dr. Keturah Fisher Sodium [Moles/Vol] 137 mmol/L Normal 136-145 [facility] Comment on above: Performed By: #### C BC #### [facility] [address] [place] [address] Dr. Keturah Fisher Urea nitrogen [Mass/Vol] 12.0 mg/dL Normal 7.0-18.0 [facility] Comment on above: Performed By: #### C BC #### [facility] [address] [place] [address] Dr. Keturah Fisher Urea nitrogen/Creatinine [Mass ratio] 13.3 mg/mg Normal [facility] Comment on above: Performed By: #### C BC #### [facility] [address] [place] [address] Dr. Keturah Fisher AMYLASEon 12-13-2021 Amylase [Catalytic activity/Vol] 268 U/L Critically high 25-115 [facility] Comment on above: Performed By: #### L IPA, CMP, CRP, NAT #### [facility] [address] [place] [address] Dr. Keturah Fisher CBC AUTO DIFFon 12-13-2021 BASO # 0.1 103/ul Normal 0.0-0.1 [facility] Comment on above: Performed By: #### L IPA, CMP, CRP, NAT #### [facility] Laboratory [address] [place] [address] Dr. Keturah Fisher Basophils/100 WBC (Bld) 0.6 % Normal 0.2-2.0 [facility] Comment on above: Performed By: #### L IPA, CMP, CRP, NAT #### [facility] Laboratory [address] [place] [address] Dr. Keturah Fisher EO # 0.1 103/ul Normal 0.0-0.7 [facility] Comment on above: Performed By: #### L IPA, CMP, CRP, NAT #### [facility] Laboratory [address] [place] [address] Dr. Keturah Fisher Eosinophils/100 WBC (Bld) 1.2 % Normal 0.9-7.0 [facility] Comment on above: Performed By: #### L IPA, CMP, CRP, NAT #### [facility] Laboratory [address] [place] [address] Dr. Keturah Fisher Erythrocyte distribution width (RBC) [Ratio] 13.2 % Normal 11.0-15.0 [facility] Comment on above: Performed By: #### L IPA, CMP, CRP, NAT #### [facility] Laboratory [address] [place] [address] Dr. Keturah Fisher Hematocrit (Bld) [Volume fraction] 44.7 % Normal 36.0-48.0 [facility] Comment on above: Performed By: #### L IPA, CMP, CRP, NAT #### [facility] Laboratory [address] [place] [address] Dr. Keturah Fisher Hemoglobin (Bld) [Mass/Vol] 14.7 g/dL Normal 12.0-16.0 [facility] Comment on above: Performed By: #### L IPA, CMP, CRP, NAT #### [facility] Laboratory [address] [place] [address] Dr. Keturah Fisher IG # 0.03 10e3/ul Normal 0.00-0.03 [facility] Comment on above: Performed By: #### L IPA, CMP, CRP, NAT #### [facility] Laboratory [address] [place] [address] Dr. Keturah Fisher IG % 0.3 % Normal 0.0-0.5 [facility] Comment on above: Performed By: #### L IPA, CMP, CRP, NAT #### [facility] Laboratory [address] [place] [address] Dr. Keturah Fisher LYMPH # 3.6 103/ul Normal 1.2-3.8 [facility] Comment on above: Performed By: #### L IPA, CMP, CRP, NAT #### [facility] Laboratory [address] [place] [address] Dr. Keturah Fisher Lymphocytes/100 WBC (Bld) 32.7 % Normal 20.5-60.0 [facility] Comment on above: Performed By: #### L IPA, CMP, CRP, NAT #### [facility] Laboratory [address] [place] [address] Dr. Keturah Fisher MANUAL DIFF REQ NO Normal [facility] Comment on above: Performed By: #### L IPA, CMP, CRP, NAT #### [facility] Laboratory [address] [place] [address] Dr. Keturah Fisher MCH (RBC) [Entitic mass] 32.2 pg Normal 26.7-34.0 [facility] Comment on above: Performed By: #### L IPA, CMP, CRP, NAT #### [facility] Laboratory [address] [place] [address] Dr. Keturah Fisher MCHC (RBC) [Mass/Vol] 32.9 g/dL Normal 29.9-35.2 [facility] Comment on above: Performed By: #### L IPA, CMP, CRP, NAT #### [facility] Laboratory [address] [place] [address] Dr. Keturah Fisher MCV (RBC) [Entitic vol] 98.0 fL Normal 81.0-99.0 [facility] Comment on above: Performed By: #### L IPA, CMP, CRP, NAT #### [facility] Laboratory [address] [place] [address] Dr. Keturah Fisher MONO # 1.1 103/ul Critically high 0.3-0.8 [facility] Comment on above: Performed By: #### L IPA, CMP, CRP, NAT #### [facility] Laboratory [address] [place] [address] Dr. Keturah Fisher Monocytes/100 WBC (Bld) 9.7 % Normal 1.7-12.0 [facility] Comment on above: Performed By: #### L IPA, CMP, CRP, NAT #### [facility] Laboratory [address] [place] [address] Dr. Keturah Fisher NEUT # 6.1 103/ul Normal 1.4-6.5 [facility] Comment on above: Performed By: #### L IPA, CMP, CRP, NAT #### [facility] Laboratory [address] [place] [address] Dr. Keturah Fisher Neutrophils/100 WBC (Bld) 55.5 % Normal 43.0-75.0 [facility] Comment on above: Performed By: #### L IPA, CMP, CRP, NAT #### [facility] Laboratory [address] [place] [address] Dr. Keturah Fisher Platelet mean volume (Bld) [Entitic vol] 9.7 fL Normal 9.5-13.5 [facility] Comment on above: Performed By: #### L IPA, CMP, CRP, NAT #### [facility] Laboratory [address] [address] [address] Keturah Fisher PLT 274 103/ul Normal 150-450 [facility] Comment on above: Performed By: #### L IPA, CMP, CRP, NAT #### [facility] Laboratory [address] [place] [address] Dr. Keturah Fisher RBC 4.56 106/ul Normal 4.20-5.40 [facility] Comment on above: Performed By: #### L IPA, CMP, CRP, NAT #### [facility] Laboratory [address] [place] [address] Dr. Keturah Fisher WBC 10.9 103/ul Normal 4.0-11.0 [facility] Comment on above: Performed By: #### L IPA, CMP, CRP, NAT #### [facility] Laboratory [address] [place] [address] Dr. Keturah Fisher CRPon 12-13-2021 CRP [Mass/Vol] mg/L Normal <=1.0 [facility] Comment on above: Performed By: #### L IPA, CMP, CRP, NAT #### [facility] Laboratory [address] [place] [address] ABD/PELV W CONon [...] IPA, CMP, CRP, NAT #### [facility] Laboratory [address], [place] [address] Dr. Keturah Fisher PROF 14(COMP METB)on 022 Albumin [Mass/Vol] 4.0 g/dL Normal 3.4-5.0 [facility] Comment on above: Performed By: #### L IPA, CMP, CRP, NAT #### [facility] Laboratory [address], [place] [address] Dr. Keturah Fisher Albumin/Globulin [Mass ratio] 1.0 {ratio} Normal [facility] Comment on above: Performed By: #### L IPA, CMP, CRP, NAT #### [facility] Laboratory [address] [place] [address] Dr. Keturah Fisher ALP [Catalytic activity/Vol] 166 U/L Critically high 46-116 [facility] Comment on above: Performed By: #### L IPA, CMP, CRP, NAT #### [facility] Laboratory [address] [place] [address] Dr. Keturah Fisher ALT [Catalytic activity/Vol] 19 U/L Normal 14-59 [facility] Comment on above: Performed By: #### L IPA, CMP, CRP, NAT #### [facility] Laboratory [address] [place] [address] Dr. Keturah Fisher Anion gap [Moles/Vol] 9.5 mmol/L Normal [facility] Comment on above: Performed By: #### L IPA, CMP, CRP, NAT #### [facility] Laboratory [address] [place] [address] Dr. Keturah Fisher AST [Catalytic activity/Vol] 16 U/L Normal 15-37 [facility] Comment on above: Performed By: #### L IPA, CMP, CRP, NAT #### [facility] Laboratory [address] [place] [address] Dr. Keturah Fisher Bilirubin [Mass/Vol] 0.1 mg/dL Critically low 0.2-1.0 [facility] Comment on above: Performed By: #### L IPA, CMP, CRP, NAT #### [facility] Laboratory [address] [place] [address] Dr. Keturah Fisher Calcium [Mass/Vol] 9.6 mg/dL Normal 8.5-10.1 [facility] Comment on above: Performed By: #### L IPA, CMP, CRP, NAT #### [facility] Laboratory [address] [place] [address] Dr. Keturah Fisher Chloride [Moles/Vol] 104 mmol/L Normal 98-107 [facility] Comment on above: Performed By: #### L IPA, CMP, CRP, NAT #### [facility] Laboratory [address] [address] [address] Keturah Fisher CO2 [Moles/Vol] 29.7 mmol/L Normal 21.0-32.0 [facility] Comment on above: Performed By: #### L IPA, CMP, CRP, NAT #### [facility] Laboratory [address] [address] [address] Keturah Fisher Creatinine [Mass/Vol] 0.85 mg/dL Normal 0.55-1.02 [facility] Comment on above: Performed By: #### L IPA, CMP, CRP, NAT #### [facility] Laboratory [address] [address] [address] Keturah Fisher EGFR-AF NICARAGUAN >60 Normal >=60 [facility] Comment on above: Performed By: #### L IPA, CMP, CRP, NAT #### [facility] Laboratory [address] [place] [address] Dr. Keturah Fisher EGFR-NON AF NICARAGUAN >60 Normal >=60 [facility] Comment on above: Performed By: #### L IPA, CMP, CRP, NAT #### [facility] Laboratory [address] [address] [address] Keturah Fisher Globulin (S) [Mass/Vol] 3.9 g/dL Normal [facility] Comment on above: Performed By: #### L IPA, CMP, CRP, NAT #### [facility] Laboratory [address] [address] [address] Keturah Fisher Glucose [Mass/Vol] 70 mg/dL Critically low 74-106 [facility] Comment on above: Performed By: #### L IPA, CMP, CRP, NAT #### [facility] Laboratory [address] [address] [address] Keturah Fisher Potassium [Moles/Vol] 3.2 mmol/L Critically low 3.5-5.1 [facility] Comment on above: Performed By: #### L IPA, CMP, CRP, NAT #### [facility] Laboratory [address] [address] [address] Keturah Fisher Protein [Mass/Vol] 7.9 g/dL Normal 6.4-8.2 [facility] Comment on above: Performed By: #### L IPA, CMP, CRP, NAT #### [facility] Laboratory [address] [place] [address] Dr. Keturah Fisher Sodium [Moles/Vol] 140 mmol/L Normal 136-145 [facility] Comment on above: Performed By: #### L IPA, CMP, CRP, NAT #### [facility] Laboratory [address] [place] [address] Dr. Keturah Fisher Urea nitrogen [Mass/Vol] 8.0 mg/dL Normal 7.0-18.0 [facility] Comment on above: Performed By: #### L IPA, CMP, CRP, NAT #### [facility] Laboratory [address] [place] [address] Dr. Keturah Fisher Urea nitrogen/Creatinine [Mass ratio] 9.4 mg/mg Normal [facility] Comment on above: Performed By: #### L IPA, CMP, CRP, NAT #### [facility] Laboratory [address] [place] [address] Dr. Keturah Fisher AMYLASEon 12-05-2021 Amylase [Catalytic activity/Vol] 223 U/L Critically high 25-115 [facility] Comment on above: Performed By: #### L IPA, CMP, CRP, NAT #### [facility] Laboratory [address] [place] [address] Dr. Keturah Fisher CBC AUTO DIFFon 12-05-2021 BASO # 0.1 103/ul Normal 0.0-0.1 [facility] Comment on above: Performed By: #### C BC #### [facility] Laboratory [address] [place] [address] Dr. Keturah Fisher Basophils/100 WBC (Bld) 0.7 % Normal 0.2-2.0 [facility] Comment on above: Performed By: #### C BC #### [facility] Laboratory [address] [place] [address] Dr. Keturah Fisher EO # 0.2 103/ul Normal 0.0-0.7 [facility] Comment on above: Performed By: #### C BC #### [facility] Laboratory [address] [place] [address] Dr. Keturah Fisher Eosinophils/100 WBC (Bld) 1.7 % Normal 0.9-7.0 [facility] Comment on above: Performed By: #### C BC #### [facility] Laboratory [address] [place] [address] Dr. Keturah Fisher Erythrocyte distribution width (RBC) [Ratio] 13.0 % Normal 11.0-15.0 [facility] Comment on above: Performed By: #### C BC #### [facility] Laboratory [address] [place] [address] Dr. Keturah Fisher Hematocrit (Bld) [Volume fraction] 44.9 % Normal 36.0-48.0 [facility] Comment on above: Performed By: #### C BC #### [facility] Laboratory [address] [place] [address] Dr. Keturah Fisher Hemoglobin (Bld) [Mass/Vol] 15.1 g/dL Normal 12.0-16.0 [facility] Comment on above: Performed By: #### C BC #### [facility] Laboratory [address] [place] [address] Dr. Keturah Fisher IG # 0.02 10e3/ul Normal 0.00-0.03 [facility] Comment on above: Performed By: #### C BC #### [facility] Laboratory [address] [place] [address] Dr. Keturah Fisher IG % 0.2 % Normal 0.0-0.5 [facility] Comment on above: Performed By: #### C BC #### [facility] Laboratory [address] [place] [address] Dr. Keturah Fisher LYMPH # 2.8 103/ul Normal 1.2-3.8 [facility] Comment on above: Performed By: #### C BC #### [facility] Laboratory [address] [place] [address] Dr. Keturah Fisehr Lymphocytes/100 WBC (Bld) 29.8 % Normal 20.5-60.0 [facility] Comment on above: Performed By: #### C BC #### [facility] Laboratory [address] [place] [address] Dr. Keturah Fisher MANUAL DIFF REQ NO Normal [facility] Comment on above: Performed By: #### C BC #### [facility] Laboratory [address] [place] [address] Dr. Keturah Fisher MCH (RBC) [Entitic mass] 32.4 pg Normal 26.7-34.0 [facility] Comment on above: Performed By: #### C BC #### [facility] Laboratory [address] [place] [address] Dr. Keturah Fisher MCHC (RBC) [Mass/Vol] 33.6 g/dL Normal 29.9-35.2 [facility] Comment on above: Performed By: #### C BC #### [facility] Laboratory [address] [place] [address] Dr. Keturah Fisher MCV (RBC) [Entitic vol] 96.4 fL Normal 81.0-99.0 [facility] Comment on above: Performed By: #### C BC #### [facility] Laboratory [address] [place] [address] Dr. Keturah Fisher MONO # 0.6 103/ul Normal 0.3-0.8 [facility] Comment on above: Performed By: #### C BC #### [facility] Laboratory [address] [place] [address] Dr. Keturah Fisher Monocytes/100 WBC (Bld) 6.3 % Normal 1.7-12.0 [facility] Comment on above: Performed By: #### C BC #### [facility] Laboratory [address] [place] [address] Dr. Keturah Fisher NEUT # 5.7 103/ul Normal 1.4-6.5 [facility] Comment on above: Performed By: #### C BC #### [facility] Laboratory [address] [place] [address] Dr. Keturah Fisher Neutrophils/100 WBC (Bld) 61.3 % Normal 43.0-75.0 [facility] Comment on above: Performed By: #### C BC #### [facility] Laboratory [address] [place] [address] Dr. Keturah Fisher Platelet mean volume (Bld) [Entitic vol] 10.7 fL Normal 9.5-13.5 [facility] Comment on above: Performed By: #### C BC #### [facility] Laboratory [address] [place] [address] Dr. Keturah Fisher PLT 217 103/ul Normal 150-450 [facility] Comment on above: Performed By: #### C BC #### [facility] Laboratory [address] [place] [address] Dr. Keturah Fisher RBC 4.66 106/ul Normal 4.20-5.40 [facility] Comment on above: Performed By: #### C BC #### [facility] Laboratory [address] [place] [address] Dr. Keturah Fisher WBC 9.2 103/ul Normal 4.0-11.0 [facility] Comment on above: Performed By: #### C BC #### [facility] Laboratory [address] [place] [address] Dr. Keturah Fisher LIPASEon 12-05-2021 Lipase [Catalytic activity/Vol] 725.0 U/L Critically high 73.0-393.0 [facility] Comment on above: Performed By: #### L IPA, CMP, CRP, NAT #### [facility] Laboratory [address] [place] [address] Dr. Keturah Fisher PROF 14(COMP METB)on 022 Albumin [Mass/Vol] 4.2 g/dL Normal 3.4-5.0 [facility] Comment on above: Performed By: #### L IPA, CMP, CRP, NAT #### [facility] Laboratory [address] [place] [address] Dr. Keturah Fisher Albumin/Globulin [Mass ratio] 1.2 {ratio} Normal [facility] Comment on above: Performed By: #### L IPA, CMP, CRP, NAT #### [facility] Laboratory [address] [place] [address] Dr. Keturah Fisher ALP [Catalytic activity/Vol] 158 U/L Critically high 46-116 [facility] Comment on above: Performed By: #### L IPA, CMP, CRP, NAT #### [facility] [address] [address] [address] Keturah Fisher ALT [Catalytic activity/Vol] 20 U/L Normal 14-59 [facility] Comment on above: Performed By: #### L IPA, CMP, CRP, NAT #### [facility] [address] [address] [address] Keturah Fisher Anion gap [Moles/Vol] 14.0 mmol/L Normal [facility] Comment on above: Performed By: #### L IPA, CMP, CRP, NAT #### [facility] [address] [address] [address] Keturah Fisher AST [Catalytic activity/Vol] 27 U/L Normal 15-37 [facility] Comment on above: Performed By: #### L IPA, CMP, CRP, NAT #### [facility] [address] [address] [address] Keturah Fisher Bilirubin [Mass/Vol] 0.3 mg/dL Normal 0.2-1.0 [facility] Comment on above: Performed By: #### L IPA, CMP, CRP, NAT #### [facility] [address] [address] [address] Keturah Fisher Calcium [Mass/Vol] 10.1 mg/dL Normal 8.5-10.1 [facility] Comment on above: Performed By: #### L IPA, CMP, CRP, NAT #### [facility] [address] [address] [address] Keturah Fisher Chloride [Moles/Vol] 105 mmol/L Normal 98-107 [facility] Comment on above: Performed By: #### L IPA, CMP, CRP, NAT #### [facility] [address] [address] [address] Keturah Fisher CO2 [Moles/Vol] 24.9 mmol/L Normal 21.0-32.0 [facility] Comment on above: Performed By: #### L IPA, CMP, CRP, NAT #### [facility] [address] [address] [address] Keturah Fisher Creatinine [Mass/Vol] 0.77 mg/dL Normal 0.55-1.02 [facility] Comment on above: Performed By: #### L IPA, CMP, CRP, NAT #### [facility] Laboratory [address] [place] [address] Dr. Keturah Fisher EGFR-AF NICARAGUAN >60 Normal >=60 [facility] Comment on above: Performed By: #### L IPA, CMP, CRP, NAT #### [facility] Laboratory [address] [place] [address] Dr. Keturah Fisher EGFR-NON AF NICARAGUAN >60 Normal >=60 [facility] Comment on above: Performed By: #### L IPA, CMP, CRP, NAT #### [facility] Laboratory [address] [place] [address] Dr. Keturah Fisher Globulin (S) [Mass/Vol] 3.5 g/dL Normal [facility] Comment on above: Performed By: #### L IPA, CMP, CRP, NAT #### [facility] Laboratory [address] [place] [address] Dr. Keturah Fisher Glucose [Mass/Vol] 91 mg/dL Normal 74-106 [facility] Comment on above: Performed By: #### L IPA, CMP, CRP, NAT #### [facility] [address] [place] [address] Dr. Keturah Fisher Potassium [Moles/Vol] 3.9 mmol/L Normal 3.5-5.1 [facility] Comment on above: Performed By: #### L IPA, CMP, CRP, NAT #### [facility] Laboratory [address] [place] [address] Dr. Keturah Fisher Protein [Mass/Vol] 7.7 g/dL Normal 6.4-8.2 [facility] Comment on above: Performed By: #### L IPA, CMP, CRP, NAT #### [facility] Laboratory [address] [place] [address] Dr. Keturah Fisher Sodium [Moles/Vol] 140 mmol/L Normal 136-145 [facility] Comment on above: Performed By: #### L IPA, CMP, CRP, NAT #### [facility] Laboratory [address] [place] [address] Dr. Keturah Fisher Urea nitrogen [Mass/Vol] 8.0 mg/dL Normal 7.0-18.0 [facility] Comment on above: Performed By: #### L IPA, CMP, CRP, NAT #### [facility] [address] [place] [address] Dr. Keturah Fisher Urea nitrogen/Creatinine [Mass ratio] 10.4 mg/mg Normal [facility] Comment on above: Performed By: #### L IPA, CMP, CRP, NAT #### [facility] [address] [place] [address] Dr. Keturah Fisher AMYLASEon 10-11-2021 Amylase [Catalytic activity/Vol] 134 U/L Critically high 25-115 [facility] Comment on above: Performed By: #### C BC #### [facility] [address] [place] [address] Dr. Keturah Fisher CBC AUTO DIFFon 10-11-2021 BASO # 0.1 103/ul Normal 0.0-0.1 [facility] Comment on above: Performed By: #### L IPA, CMP, CRP, NAT #### [facility] [address] [place] [address] Dr. Keturah Fisher Basophils/100 WBC (Bld) 1.0 % Normal 0.2-2.0 [facility] Comment on above: Performed By: #### L IPA, CMP, CRP, NAT #### [facility] [address] [place] [address] Dr. Keturah Fisher EO # 0.2 103/ul Normal 0.0-0.7 [facility] Comment on above: Performed By: #### L IPA, CMP, CRP, NAT #### [facility] [address] [place] [address] Dr. Keturah Fisher Eosinophils/100 WBC (Bld) 2.0 % Normal 0.9-7.0 [facility] Comment on above: Performed By: #### L IPA, CMP, CRP, NAT #### [facility] [address] [address] [address] Keturah Fisher Erythrocyte distribution width (RBC) [Ratio] 13.2 % Normal 11.0-15.0 [facility] Comment on above: Performed By: #### L IPA, CMP, CRP, NAT #### [facility] [address] [place] [address] Dr. Keturah Fisher Hematocrit (Bld) [Volume fraction] 44.7 % Normal 36.0-48.0 [facility] Comment on above: Performed By: #### L IPA, CMP, CRP, NAT #### [facility] [address] [place] [address] Dr. Keturah Fisher Hemoglobin (Bld) [Mass/Vol] 15.0 g/dL Normal 12.0-16.0 [facility] Comment on above: Performed By: #### L IPA, CMP, CRP, NAT #### [facility] [address] [place] [address] Dr. Keturah Fisher IG # 0.02 10e3/ul Normal 0.00-0.03 [facility] Comment on above: Performed By: #### L IPA, CMP, CRP, NAT #### [facility] [address] [place] [address] Dr. Keturah Fisher IG % 0.2 % Normal 0.0-0.5 [facility] Comment on above: Performed By: #### L IPA, CMP, CRP, NAT #### [facility] [address] [place] [address] Dr. Keturah Fisher LYMPH # 4.1 103/ul Critically high 1.2-3.8 [facility] Comment on above: Performed By: #### L IPA, CMP, CRP, NAT #### [facility] [address] [place] [address] Dr. Keturah Fisher Lymphocytes/100 WBC (Bld) 38.9 % Normal 20.5-60.0 [facility] Comment on above: Performed By: #### L IPA, CMP, CRP, NAT #### [facility] [address] [place] [address] Dr. Keturah Fisher MANUAL DIFF REQ NO Normal [facility] Comment on above: Performed By: #### L IPA, CMP, CRP, NAT #### [facility] [address] [place] [address] Dr. Keturah Fisher MCH (RBC) [Entitic mass] 32.1 pg Normal 26.7-34.0 [facility] Comment on above: Performed By: #### L IPA, CMP, CRP, NAT #### [facility] [address] [place] [address] Dr. Keturah Fisher MCHC (RBC) [Mass/Vol] 33.6 g/dL Normal 29.9-35.2 [facility] Comment on above: Performed By: #### L IPA, CMP, CRP, NAT #### [facility] [address] [place] [address] Dr. Keturah Fisher MCV (RBC) [Entitic vol] 95.7 fL Normal 81.0-99.0 [facility] Comment on above: Performed By: #### L IPA, CMP, CRP, NAT #### [facility] [address] [place] [address] Dr. Keturah Fisher MONO # 0.9 103/ul Critically high 0.3-0.8 [facility] Comment on above: Performed By: #### L IPA, CMP, CRP, NAT #### [facility] [address] [place] [address] Dr. Keturah Fisher Monocytes/100 WBC (Bld) 8.8 % Normal 1.7-12.0 [facility] Comment on above: Performed By: #### L IPA, CMP, CRP, NAT #### [facility] [address] [place] [address] Dr. Keturah Fisher NEUT # 5.2 103/ul Normal 1.4-6.5 [facility] Comment on above: Performed By: #### L IPA, CMP, CRP, NAT #### [facility] [address] [place] [address] Dr. Keturah Fisher Neutrophils/100 WBC (Bld) 49.1 % Normal 43.0-75.0 [facility] Comment on above: Performed By: #### L IPA, CMP, CRP, NTA #### [facility] [address] [place] [address] Dr. Keturah Fisher Platelet mean volume (Bld) [Entitic vol] 9.8 fL Normal 9.5-13.5 [facility] Comment on above: Performed By: #### L IPA, CMP, CRP, NAT #### [facility] [address] [place] [address] Dr. Keturah Fisher PLT 299 103/ul Normal 150-450 [facility] Comment on above: Performed By: #### L IPA, CMP, CRP, NAT #### [facility] [address] [place] [address] Dr. Keturah Fisher RBC 4.67 106/ul Normal 4.20-5.40 [facility] Comment on above: Performed By: #### L IPA, CMP, CRP, NAT #### [facility] [address] [place] [address] Dr. Keturah Fisher WBC 10.5 103/ul Normal 4.0-11.0 [facility] Comment on above: Performed By: #### L IPA, CMP, CRP, NAT #### [facility] [address] [place] [address] Dr. Keturah Fisher LIPASEon 10-11-2021 Lipase [Catalytic activity/Vol] 240.0 U/L Normal 73.0-393.0 [facility] Comment on above: Performed By: #### C BC #### [facility] [address] [place] [address] Dr. Keturah Fisher PROF 14(COMP METB)on 022 Albumin [Mass/Vol] 4.3 g/dL Normal 3.4-5.0 [facility] Comment on above: Performed By: #### C BC #### [facility] [address] [place] [address] Dr. Keturah Fisher Albumin/Globulin [Mass ratio] 1.3 {ratio} Normal [facility] Comment on above: Performed By: #### C BC #### [facility] [address] [place] [address] Dr. Keturah Fisher ALP [Catalytic activity/Vol] 162 U/L Critically high 46-116 [facility] Comment on above: Performed By: #### C BC #### [facility] [address] [address] [address] Keturah Fisher ALT [Catalytic activity/Vol] 21 U/L Normal 14-59 [facility] Comment on above: Performed By: #### C BC #### [facility] [address] [address] [address] Keturah Fisher Anion gap [Moles/Vol] 15.1 mmol/L Normal [facility] Comment on above: Performed By: #### C BC #### [facility] [address] [address] [address] Keturah Fisher AST [Catalytic activity/Vol] 16 U/L Normal 15-37 [facility] Comment on above: Performed By: #### C BC #### [facility] [address] [place] [address] Dr. Keturah Fisher Bilirubin [Mass/Vol] 0.2 mg/dL Normal 0.2-1.0 [facility] Comment on above: Performed By: #### C BC #### [facility] [address] [place] [address] Dr. Keturah Fisher Calcium [Mass/Vol] 9.6 mg/dL Normal 8.5-10.1 [facility] Comment on above: Performed By: #### C BC #### [facility] [address] [place] [address] Dr. Keturah Fisher Chloride [Moles/Vol] 104 mmol/L Normal 98-107 [facility] Comment on above: Performed By: #### C BC #### [facility] [address] [place] [address] Dr. Keturah Fisher CO2 [Moles/Vol] 24.6 mmol/L Normal 21.0-32.0 [facility] Comment on above: Performed By: #### C BC #### [facility] [address] [place] [address] Dr. Keturah Fisher Creatinine [Mass/Vol] 0.88 mg/dL Normal 0.55-1.02 [facility] Comment on above: Performed By: #### C BC #### [facility] [address] [address] [address] Keturah Fisher EGFR-AF NICARAGUAN >60 Normal >=60 [facility] Comment on above: Performed By: #### C BC #### [facility] [address] [id number] [address] Keturah Fisher EGFR-NON AF NICARAGUAN >60 Normal >=60 [facility] Comment on above: Performed By: #### C BC #### [facility] [address] [address] [address] Keturah Fisher Globulin (S) [Mass/Vol] 3.3 g/dL Normal [facility] Comment on above: Performed By: #### C BC #### [facility] [address] [address] [address] Keturah Fisher Glucose [Mass/Vol] 111 mg/dL Critically high 74-106 [facility] Comment on above: Performed By: #### C BC #### [facility] [address] [address] [address] Keturah Fisher Potassium [Moles/Vol] 3.7 mmol/L Normal 3.5-5.1 [facility] Comment on above: Performed By: #### C BC #### [facility] [address] [place] [address] Dr. Keturah Fisher Protein [Mass/Vol] 7.6 g/dL Normal 6.4-8.2 [facility] Comment on above: Performed By: #### C BC #### [facility] [address] [address] [address] Keturah Fisher Sodium [Moles/Vol] 140 mmol/L Normal 136-145 [facility] Comment on above: Performed By: #### C BC #### [facility] [address] [place] [address] Dr. Keturah Fisher Urea nitrogen [Mass/Vol] 11.0 mg/dL Normal 7.0-18.0 [facility] Comment on above: Performed By: #### C BC #### [facility] [address] [address] [address] Keturah Fisher Urea nitrogen/Creatinine [Mass ratio] 12.5 mg/mg Normal [facility] Comment on above: Performed By: #### C BC #### [facility] [address] [place], [place] [address] Dr. Keturah Fisher PROTIMEon 10-11-2021 INR Coag (PPP) [Relative time] 0.94 {INR} Normal [facility] Comment on above: Performed By: #### P T, PTT ####[facility] [id number] [address]DrGopal Fisher INR GUIDELINES SEE BELOW Normal [facility] Comment on above: Result Comment: KARLY RED INR: 2.0 - 3.0 CONDITIONS NOT LISTED BELOW 2.5 - 3.5 FOR PROSTHETIC HEART VALVE REPLACEMENT 2.5 - 3.5 RECURRENT THROMBOSIS Performed By: #### P T, PTT ####[facility] [id number] [id number] Fisher PT Coag (PPP) [Time] 10.2 s Normal 9.0-11.6 [facility] Comment on above: Performed By: #### P T, PTT ####[facility] [id number] [id number] Keturah Fisher PTTon 10-11-2021 aPTT Coag (Bld) [Time] 28.0 s Normal 22.3-36.2 [facility] Comment on above: Performed By: #### P T, PTT ####[facility] [id number] [address]DrGopal Fisher Amphetamine Screen Ql (U)Ord ered By: Christa Lopez on 10-09-2021 Amphetamines Ql (U) Negative Negative [facility] Barbiturates [Presence] in U rineOrdered By: Christa Lopez on 10-09-2021 Barbiturates Ql (U) Negative Negative [facility] Basophils Auto (Bld) [#/Vol] Ordered By: Christa Lopez on 10-09-2021 Basophils (Bld) [#/Vol] 0.1 10*3/uL 0.0-0.2 [facility] Basophils/100 WBC Auto (Bld) Ordered By: Christa Lopez on 10-09-2021 Basophils/100 WBC (Bld) 0.9 % . [facility] Benzodiazepines [Presence] i n UrineOrdered By: Christa Lopez on 10-09-2021 Benzodiazepines Ql (U) Negative Negative [facility] Bilirubin Auto test strip Ql (U)Ordered By: Christa Lopez on 10-09-2021 Bilirubin Ql (U) Negative Negative [facility] Blood hemoglobin measurement (mass/volume)Ordered By: Christa Lopez on 10-09-2021 Hemoglobin (Bld) [Mass/Vol] 15.7 g/dL 11.8-15.4 [facility] Blood leukocytes automated c ount (number/volume)Ordered By: Christa Lopez on 10-09-2021 WBC (Bld) [#/Vol] 10.1 10*3/uL 4.5-11.0 [facility] Body fluid albumin measureme nt (mass/volume)Ordered By: Christa Lopez on 10-09-2021 Albumin (Body fld) [Mass/Vol] 4.5 g/dL 3.2-5.5 [facility] Cannabinoids [Presence] in U rine by Screen methodOrdered By: Christa Lopez on 10-09-2021 Cannabinoids Screen Ql (U) Negative Negative [facility] Comment on above: These are unconfirme d results and should not be used for legal purposes. Drug Cut-Off Concentration: AMPH 1000 ng/mL BAILEY 200 ng/mL JAKE 200 ng/mL COCM 300 ng/mL OP 300 ng/mL PCP 25 ng/mL THC 20 ng/mL Creatinine and Glomerular fi ltration rate.predicted panel (S/P/Bld)Ordered By: Christa Lopez on 10-09-2021 Creatinine [Mass/Vol] 0.85 mg/dL 0.44-1.03 [facility] Eosinophils Auto (Bld) [#/Vo l]Ordered By: Christa Lopez on 10-09-2021 Eosinophils (Bld) [#/Vol] 0.1 10*3/uL 0.0-0.45 [facility] Eosinophils/100 WBC Auto (Bl d)Ordered By: Christa Lopez on 10-09-2021 Eosinophils/100 WBC (Bld) 1.2 % . [facility] Erythrocyte distribution wid th Auto (RBC) [Ratio]Ordered By: Christa Lopez on 10-09-2021 Erythrocyte distribution width (RBC) [Ratio] 13.5 % 11.9-15.3 [facility] Estimated glomerular filtrat ion rate (GFR) non- AmericanOrdered By: Christa Lopez on 10-09-2021 GFR/1.73 sq M.predicted among non-blacks MDRD (S/P/Bld) [Vol rate/Area] > 60 mL/Min [facility] Globulin Calc (S) [Mass/Vol] Ordered By: Christa Lopez on 10-09-2021 Globulin (S) [Mass/Vol] 2.9 g/dL [facility] Hematocrit Auto (Bld) [Volum e fraction]Ordered By: Christa Lopez on 10-09-2021 Hematocrit (Bld) [Volume fraction] 47.1 % 34.0-46.4 [facility] Ketones Auto test strip (U) [Mass/Vol]Ordered By: Christa Lopez on 10-09-2021 Ketones (U) [Mass/Vol] Negative Negative [facility] - Chemistry and C hemistry - challengeOrdered By: Christa Lopez on 10-09-2021 Lipase [Catalytic activity/Vol] 242.0 U/L 22-51 [facility] - Drug toxicology Ordered By: Christa Lopez on 10-09-2021 Opiates Ql (U) Negative Negative [facility] - Hematology and Cell countsOrdered By: Christa Lopez on 10-09-2021 Nucleated RBC/100 WBC (Bld) [Ratio] 0.1 % 0-0.5 [facility] Lymphocytes Auto (Bld) [#/Vo l]Ordered By: Christa Lopez on 10-09-2021 Lymphocytes (Bld) [#/Vol] 2.6 10*3/uL 1.00-4.8 [facility] Lymphocytes/100 WBC Auto (Bl d)Ordered By: Christa Lopez on 10-09-2021 Lymphocytes/100 WBC (Bld) 26.0 % . [facility] MCH Auto (RBC) [Entitic mass ]Ordered By: Christa Lopez on 10-09-2021 MCH (RBC) [Entitic mass] 32.4 pg 24.7-34.3 [facility] MCHC Auto (RBC) [Mass/Vol]Or dered By: Christa Lopez on 10-09-2021 MCHC (RBC) [Mass/Vol] 33.3 g/dL 32.0-35.0 [facility] MCV Auto (RBC) [Entitic vol] Ordered By: Christa Lopez on 10-09-2021 MCV (RBC) [Entitic vol] 97.3 fL 80-100 [facility] Monocytes Auto (Bld) [#/Vol] Ordered By: Christa Lopez on 10-09-2021 Monocytes (Bld) [#/Vol] 0.8 10*3/uL 0.0-0.8 [facility] Monocytes/100 WBC Auto (Bld) Ordered By: Christa Lopez on 10-09-2021 Monocytes/100 WBC (Bld) 7.6 % . [facility] Neutrophils Auto (Bld) [#/Vo l]Ordered By: Christa Lopez on 10-09-2021 Neutrophils (Bld) [#/Vol] 6.5 10*3/uL 1.8-7.7 [facility] Neutrophils/100 WBC Auto (Bl d)Ordered By: Christa Lopez on 10-09-2021 Neutrophils/100 WBC (Bld) 64.3 % . [facility] No Panel InformationOrdered By: Christa Lopez on 10-09-2021 Estimated GFR () > 60 mL/Min [facility] Comment on above: GFR estimated refere nce range: According to KDOQI guidelines, <60 ml/min/1.73m2 is sufficient to diagnose a patient with chronic kidney disease. Pharmacy Creatinine Clearance (Chem 61.23 [facility] Phencyclidine Screen Ql (U)O rdered By: Christa Lopez on 10-09-2021 Phencyclidine Ql (U) Negative Negative [facility] Platelet mean volume Auto (B ld) [Entitic vol]Ordered By: Christa Lopez on 10-09-2021 Platelet mean volume (Bld) [Entitic vol] 8.5 fL 6.3-10.7 [facility] Platelets Auto (Bld) [#/Vol] Ordered By: Christa Lopez on 10-09-2021 Platelets (Bld) [#/Vol] 284 10*3/uL 150-450 [facility] Protein Auto test strip (U) [Mass/Vol]Ordered By: Christa Lopez on 10-09-2021 Protein (U) [Mass/Vol] Negative Negative [facility] Protein [Mass/volume] in Ser um or PlasmaOrdered By: Christa Lopez on 10-09-2021 Protein [Mass/Vol] 7.4 g/dL 6.1-7.9 [facility] RBC Auto (Bld) [#/Vol]Ordere d By: Christa Lopez on 10-09-2021 RBC (Bld) [#/Vol] 4.84 10*6/uL 3.60-5.00 [facility] Serum or plasma alanine hughes otransferase measurement without P-5'-P (enzymatic activiOrdered By: Christa Lopez on 10-09-2021 ALT No additional P-5'-P [Catalytic activity/Vol] 19 U/L 10-60 [facility] Serum or plasma albumin/glob ulin mass ratioOrdered By: Christa Lopez on 10-09-2021 Albumin/Globulin [Mass ratio] 1.6 {ratio} [facility] Serum or plasma alkaline jaqueline sphatase measurement (enzymatic activity/volume)Ordered By: Christa Lopez on 10-09-2021 ALP [Catalytic activity/Vol] 138 U/L 32-92 [facility] Serum or plasma aspartate am inotransferase measurement (enzymatic activity/volume)Ordered By: Christa Lopez on 10-09-2021 AST [Catalytic activity/Vol] 31 U/L 10-42 [facility] Serum or plasma calcium priscilla urement (mass/volume)Ordered By: Christa Lopez on 10-09-2021 Calcium [Mass/Vol] 10.3 mg/dL 8.2-10.2 [facility] Serum or plasma chloride daron surement (moles/volume)Ordered By: Christa Lopez on 10-09-2021 Chloride [Moles/Vol] 100 mmol/L 95-114 [facility] Serum or plasma glucose priscilla urement (mass/volume)Ordered By: Christa Lopez on 10-09-2021 Glucose [Mass/Vol] 75 mg/dL 70-100 [facility] Comment on above: ADA recommended refe rence range Random Glucose Reference Range is dependent on time and content of last meal. Glucose of more than 200 mg/dL in a nonstressed, ambulatory subject supports the diagnosis of Diabetes Mellitus. Serum or plasma potassium me asurement (moles/volume)Ordered By: Christa Lopez on 10-09-2021 Potassium [Moles/Vol] 3.9 mmol/L 3.5-5.1 [facility] Serum or plasma sodium measu rement (moles/volume)Ordered By: Christa Lopez on 10-09-2021 Sodium [Moles/Vol] 136 mmol/L 136-146 [facility] Serum or plasma total biliru bin measurement (mass/volume)Ordered By: Christa Lopez on 10-09-2021 Bilirubin [Mass/Vol] 0.4 mg/dL 0.3-1.2 [facility] Serum or plasma total carbon dioxide measurement (moles/volume)Ordered By: Christa Lopez on 10-09-2021 CO2 [Moles/Vol] 24.1 mmol/L 22.0-30.[address] [facility] Serum or plasma urea nitroge n measurement (mass/volume)Ordered By: Christa Lopez on 10-09-2021 Urea nitrogen [Mass/Vol] 12 mg/dL 9-23 [facility] Troponin I.cardiac [Mass/vol ume] in Serum or Plasma by High sensitivity methodOrdered By: Christa Lopez on 10-09-2021 Troponin I.cardiac High sensitivity method [Mass/Vol] 3 pg/mL 0-15 [facility] Urine appearanceOrdered By: Christa Lopez on 10-09-2021 Appearance (U) Clear Clear [facility] Urine cocaine detectionOrder ed By: Christa Lopez on 10-09-2021 Cocaine Ql (U) Negative Negative [facility] Urine colorOrdered By: Christa Lopez on 10-09-2021 Color (U) Yellow Yellow [facility] Urine glucose measurement by automated test strip (mass/volume)Ordered By: Christa Lopez on 10-09-2021 Glucose Auto test strip (U) [Mass/Vol] Normal mg/dL Normal [facility] Urine hemoglobin detection b y automated test stripOrdered By: Christa Lopez on 10-09-2021 Hemoglobin Auto test strip Ql (U) Negative Negative [facility] Urine leukocyte esterase det ection by automated test stripOrdered By: Christa Lopez on 10-09-2021 Leukocyte esterase Auto test strip Ql (U) Negative Negative [facility] Urine nitrite detection by a utomated test stripOrdered By: Christa Lopez on 10-09-2021 Nitrite Auto test strip Ql (U) Negative Negative [facility] Urobilinogen Auto test strip (U) [Mass/Vol]Ordered By: Christa Lopez on 10-09-2021 Urobilinogen (U) [Mass/Vol] Normal mg/dL Normal [facility] pH Auto test strip (U)Ordere d By: Christa Lopez on 10-09-2021 pH (U) 1.025 [pH] 1.001-1.03 0 [facility] pH (U) 5.5 [pH] 5.0-9.0 [facility] Albumin [Mass/volume] in Ser um or PlasmaOrdered By: Reinaldo Amor on 10-04-2021 Albumin [Mass/Vol] 3.6 g/dL 3.2-5.5 [facility] Basophils Auto (Bld) [#/Vol] Ordered By: Reinaldo Amor on 10-04-2021 Basophils (Bld) [#/Vol] 0.1 10*3/uL 0.0-0.2 [facility] Basophils/100 WBC Auto (Bld) Ordered By: Reinaldo Amor on 10-04-2021 Basophils/100 WBC (Bld) 0.8 % . [facility] Bilirubin Auto test strip Ql (U)Ordered By: Reinaldo Amor on 10-04-2021 Bilirubin Ql (U) Negative Negative [facility] Blood hemoglobin measurement (mass/volume)Ordered By: Reinaldo Amor on 10-04-2021 Hemoglobin (Bld) [Mass/Vol] 13.9 g/dL 11.8-15.4 [facility] Blood leukocytes automated c ount (number/volume)Ordered By: Reinaldo Amor on 10-04-2021 WBC (Bld) [#/Vol] 10.4 10*3/uL 4.5-11.0 [facility] Creatinine and Glomerular fi ltration rate.predicted panel (S/P/Bld)Ordered By: Reinaldo Amor on 10-04-2021 Creatinine [Mass/Vol] 0.73 mg/dL 0.44-1.03 [facility] Direct bilirubin measurement Ordered By: Reinaldo Amor on 10-04-2021 Bilirubin.direct [Mass/Vol] mg/dL 0.0-0.4 [facility] Eosinophils Auto (Bld) [#/Vo l]Ordered By: Reinaldo Amor on 10-04-2021 Eosinophils (Bld) [#/Vol] 0.1 10*3/uL 0.0-0.45 [facility] Eosinophils/100 WBC Auto (Bl d)Ordered By: Reinaldo Amor on 10-04-2021 Eosinophils/100 WBC (Bld) 0.5 % . [facility] Erythrocyte distribution wid th Auto (RBC) [Ratio]Ordered By: Reinaldo Amor on 10-04-2021 Erythrocyte distribution width (RBC) [Ratio] 13.7 % 11.9-15.3 [facility] Estimated glomerular filtrat ion rate (GFR) non- AmericanOrdered By: Reinaldo Amor on 10-04-2021 GFR/1.73 sq M.predicted among non-blacks MDRD (S/P/Bld) [Vol rate/Area] > 60 mL/Min [facility] Globulin Calc (S) [Mass/Vol] Ordered By: Reinaldo Amor on 10-04-2021 Globulin (S) [Mass/Vol] 2.6 g/dL [facility] Hematocrit Auto (Bld) [Volum e fraction]Ordered By: Reinaldo Amor on 10-04-2021 Hematocrit (Bld) [Volume fraction] 41.1 % 34.0-46.4 [facility] Ketones Auto test strip (U) [Mass/Vol]Ordered By: Reinaldo Amor on 10-04-2021 Ketones (U) [Mass/Vol] Negative Negative [facility] - Chemistry and C hemistry - challengeOrdered By: Reinaldo Amor on 10-04-2021 Lipase [Catalytic activity/Vol] 107.0 U/L 22-51 [facility] - Hematology and Cell countsOrdered By: Reinaldo Amor on 10-04-2021 Nucleated RBC/100 WBC (Bld) [Ratio] 0.1 % 0-0.5 [facility] Lymphocytes Auto (Bld) [#/Vo l]Ordered By: Reinaldo Amor on 10-04-2021 Lymphocytes (Bld) [#/Vol] 2.5 10*3/uL 1.00-4.8 [facility] Lymphocytes/100 WBC Auto (Bl d)Ordered By: Reinaldo Amor on 10-04-2021 Lymphocytes/100 WBC (Bld) 24.1 % . [facility] [facility] MCH Auto (RBC) [Entitic mass ]Ordered By: Reinaldo Amor on 10-04-2021 MCH (RBC) [Entitic mass] 32.6 pg 24.7-34.3 [facility] MCHC Auto (RBC) [Mass/Vol]Or dered By: Reinaldo Amor on 10-04-2021 MCHC (RBC) [Mass/Vol] 33.8 g/dL 32.0-35.0 [facility] MCV Auto (RBC) [Entitic vol] Ordered By: Reinaldo Amor on 10-04-2021 MCV (RBC) [Entitic vol] 96.5 fL 80-100 [facility] Monocytes Auto (Bld) [#/Vol] Ordered By: Reinaldo Amor on 10-04-2021 Monocytes (Bld) [#/Vol] 0.9 10*3/uL 0.0-0.8 [facility] Monocytes/100 WBC Auto (Bld) Ordered By: Reinaldo Amor on 10-04-2021 Monocytes/100 WBC (Bld) 8.4 % . [facility] Neutrophils Auto (Bld) [#/Vo l]Ordered By: Reinaldo Amor on 10-04-2021 Neutrophils (Bld) [#/Vol] 6.9 10*3/uL 1.8-7.7 [facility] Neutrophils/100 WBC Auto (Bl d)Ordered By: Reinaldo Amor on 10-04-2021 Neutrophils/100 WBC (Bld) 66.2 % . [facility] No Panel InformationOrdered By: Reinaldo Amor on 10-04-2021 Estimated GFR () > 60 mL/Min [facility] Comment on above: GFR estimated refere nce range: According to KDOQI guidelines, <60 ml/min/1.73m2 is sufficient to diagnose a patient with chronic kidney disease. Pharmacy Creatinine Clearance (Chem 71.30 [facility] Platelet mean volume Auto (B ld) [Entitic vol]Ordered By: Reinaldo Amor on 10-04-2021 Platelet mean volume (Bld) [Entitic vol] 8.0 fL 6.3-10.7 [facility] Platelets Auto (Bld) [#/Vol] Ordered By: Reinaldo Amor on 10-04-2021 Platelets (Bld) [#/Vol] 268 10*3/uL 150-450 [facility] Protein Auto test strip (U) [Mass/Vol]Ordered By: Reinaldo Amor on 10-04-2021 Protein (U) [Mass/Vol] Negative Negative [facility] Protein [Mass/volume] in Ser um or PlasmaOrdered By: Reinaldo Amor on 10-04-2021 Protein [Mass/Vol] 6.2 g/dL 6.1-7.9 [facility] RBC Auto (Bld) [#/Vol]Ordere d By: Reinaldo Amor on 10-04-2021 RBC (Bld) [#/Vol] 4.26 10*6/uL 3.60-5.00 [facility] Serum or plasma alanine hughes otransferase measurement without P-5'-P (enzymatic activiOrdered By: Reinaldo Amor on 10-04-2021 ALT No additional P-5'-P [Catalytic activity/Vol] 15 U/L 10-60 [facility] Serum or plasma albumin/glob ulin mass ratioOrdered By: Reinaldo Amor on 10-04-2021 Albumin/Globulin [Mass ratio] 1.4 {ratio} [facility] Serum or plasma alkaline jaqueline sphatase measurement (enzymatic activity/volume)Ordered By: Reinaldo Amor on 10-04-2021 ALP [Catalytic activity/Vol] 103 U/L 32-92 [facility] Serum or plasma amylase priscilla urement (enzymatic activity/volume)Ordered By: Reinaldo Amor on 10-04-2021 Amylase [Catalytic activity/Vol] 134 U/L 28-100 [facility] Serum or plasma aspartate am inotransferase measurement (enzymatic activity/volume)Ordered By: Reinaldo Amor on 10-04-2021 AST [Catalytic activity/Vol] 20 U/L 10-42 [facility] Serum or plasma calcium priscilla urement (mass/volume)Ordered By: Reinaldo Amor on 10-04-2021 Calcium [Mass/Vol] 9.6 mg/dL 8.2-10.2 [facility] Serum or plasma chloride daron surement (moles/volume)Ordered By: Reinaldo Amor on 10-04-2021 Chloride [Moles/Vol] 103 mmol/L 95-114 [facility] Serum or plasma ethanol priscilla urement (mass/volume)Ordered By: Reinaldo Amor on 10-04-2021 Ethanol [Mass/Vol] mg/dL [facility] Ethanol [Mass/Vol] TNP [facility] Comment on above: Test not performed Serum or plasma glucose priscilla urement (mass/volume)Ordered By: Reinaldo Amor on 10-04-2021 Glucose [Mass/Vol] 120 mg/dL 70-100 [facility] Comment on above: ADA recommended refe rence range Random Glucose Reference Range is dependent on time and content of last meal. Glucose of more than 200 mg/dL in a nonstressed, ambulatory subject supports the diagnosis of Diabetes Mellitus. Serum or plasma non-glucuron idated bilirubin measurement (mass/volume)Ordered By: Reinaldo Amor on 10-04-2021 Bilirubin.indirect [Mass/Vol] [facility] Comment on above: Test not performed Serum or plasma potassium me asurement (moles/volume)Ordered By: Reinaldo Amor on 10-04-2021 Potassium [Moles/Vol] 3.7 mmol/L 3.5-5.1 [facility] Serum or plasma sodium measu rement (moles/volume)Ordered By: Reinaldo Amor on 10-04-2021 Sodium [Moles/Vol] 137 mmol/L 136-146 [facility] Serum or plasma total biliru bin measurement (mass/volume)Ordered By: Reinaldo Amor on 10-04-2021 Bilirubin [Mass/Vol] 0.5 mg/dL 0.3-1.2 [facility] Serum or plasma total carbon dioxide measurement (moles/volume)Ordered By: Reinaldo Amor on 10-04-2021 CO2 [Moles/Vol] 24.9 mmol/L 22.0-30.[address] [facility] Serum or plasma urea nitroge n measurement (mass/volume)Ordered By: Reinaldo Amor on 10-04-2021 Urea nitrogen [Mass/Vol] 7 mg/dL 11-29 [facility] Urine appearanceOrdered By: Reinaldo Amor on 10-04-2021 Appearance (U) Clear Clear [facility] Urine colorOrdered By: Ml Amor on 10-04-2021 Color (U) Yellow Yellow [facility] Urine glucose measurement by automated test strip (mass/volume)Ordered By: Reinaldo Amor on 10-04-2021 Glucose Auto test strip (U) [Mass/Vol] Normal mg/dL Normal [facility] Urine hemoglobin detection b y automated test stripOrdered By: Reinaldo Amor on 10-04-2021 Hemoglobin Auto test strip Ql (U) Negative Negative [facility] Urine leukocyte esterase det ection by automated test stripOrdered By: Reinaldo Amor on 10-04-2021 Leukocyte esterase Auto test strip Ql (U) Negative Negative [facility] Urine nitrite detection by a utomated test stripOrdered By: Reinaldo Amor on 10-04-2021 Nitrite Auto test strip Ql (U) Negative Negative [facility] Urobilinogen Auto test strip (U) [Mass/Vol]Ordered By: Reinaldo Amor on 10-04-2021 Urobilinogen (U) [Mass/Vol] Normal mg/dL Normal [facility] pH Auto test strip (U)Ordere d By: Reinaldo Amor on 10-04-2021 pH (U) 1.030 [pH] 1.001-1.03 0 [facility] pH (U) 5.5 [pH] 5.0-9.0 [facility] Basophils Auto (Bld) [#/Vol] Ordered By: Reinaldo Amor on 09-25-2021 Basophils (Bld) [#/Vol] 0.1 10*3/uL 0.0-0.2 [facility] Basophils/100 WBC Auto (Bld) Ordered By: Reinaldo Amor on 09-25-2021 Basophils/100 WBC (Bld) 1.2 % . [facility] Blood hemoglobin measurement (mass/volume)Ordered By: Reinaldo Amor on 09-25-2021 Hemoglobin (Bld) [Mass/Vol] 14.2 g/dL 11.8-15.4 [facility] Blood leukocytes automated c ount (number/volume)Ordered By: Reinaldo Amor on 09-25-2021 WBC (Bld) [#/Vol] 9.3 10*3/uL 4.5-11.0 [facility] Body fluid albumin measureme nt (mass/volume)Ordered By: PROVIDER JONATHAN on 09-25-2021 Albumin (Body fld) [Mass/Vol] 4.3 g/dL 3.2-5.5 [facility] Creatinine and Glomerular fi ltration rate.predicted panel (S/P/Bld)Ordered By: PROVIDER JONATHAN on 09-25-2021 Creatinine [Mass/Vol] 0.82 mg/dL 0.44-1.03 [facility] Eosinophils Auto (Bld) [#/Vo l]Ordered By: Reinaldo Amor on 09-25-2021 Eosinophils (Bld) [#/Vol] 0.2 10*3/uL 0.0-0.45 [facility] Eosinophils/100 WBC Auto (Bl d)Ordered By: Reinaldo Amor on 09-25-2021 Eosinophils/100 WBC (Bld) 1.9 % . [facility] Erythrocyte distribution wid th Auto (RBC) [Ratio]Ordered By: Reinaldo Amor on 09-25-2021 Erythrocyte distribution width (RBC) [Ratio] 13.7 % 11.9-15.3 [facility] Estimated glomerular filtrat ion rate (GFR) non- AmericanOrdered By: PROVIDER TEMP on 09-25-2021 GFR/1.73 sq M.predicted among non-blacks MDRD (S/P/Bld) [Vol rate/Area] > 60 mL/Min [facility] Globulin Calc (S) [Mass/Vol] Ordered By: JOSE CASTILLO on 09-25-2021 Globulin (S) [Mass/Vol] 3.3 g/dL [facility] Hematocrit Auto (Bld) [Volum e fraction]Ordered By: Reinaldo Amor on 09-25-2021 Hematocrit (Bld) [Volume fraction] 42.1 % 34.0-46.4 [facility] Laboratory - Chemistry and C hemistry - challengeOrdered By: Reinaldo Amor on 09-25-2021 Lipase [Catalytic activity/Vol] 64.0 U/L 22-51 [facility] - Hematology and Cell countsOrdered By: Reinaldo Amor on 09-25-2021 Nucleated RBC/100 WBC (Bld) [Ratio] 0.1 % 0-0.5 [facility] Lymphocytes Auto (Bld) [#/Vo l]Ordered By: Reinaldo Amor on 09-25-2021 Lymphocytes (Bld) [#/Vol] 2.6 10*3/uL 1.00-4.8 [facility] Lymphocytes/100 WBC Auto (Bl d)Ordered By: Reinaldo Amor on 09-25-2021 Lymphocytes/100 WBC (Bld) 28.1 % . [facility] MCH Auto (RBC) [Entitic mass ]Ordered By: Reinaldo Amor on 09-25-2021 MCH (RBC) [Entitic mass] 32.5 pg 24.7-34.3 [facility] MCHC Auto (RBC) [Mass/Vol]Or dered By: Reinaldo Amor on 09-25-2021 MCHC (RBC) [Mass/Vol] 33.7 g/dL 32.0-35.0 [facility] MCV Auto (RBC) [Entitic vol] Ordered By: Reinaldo Amor on 09-25-2021 MCV (RBC) [Entitic vol] 96.7 fL 80-100 [facility] Monocytes Auto (Bld) [#/Vol] Ordered By: Reinaldo Amor on 09-25-2021 Monocytes (Bld) [#/Vol] 0.8 10*3/uL 0.0-0.8 [facility] Monocytes/100 WBC Auto (Bld) Ordered By: Reinaldo Amor on 09-25-2021 Monocytes/100 WBC (Bld) 8.2 % . [facility] Neutrophils Auto (Bld) [#/Vo l]Ordered By: Reinaldo Amor on 09-25-2021 Neutrophils (Bld) [#/Vol] 5.6 10*3/uL 1.8-7.7 [facility] Neutrophils/100 WBC Auto (Bl d)Ordered By: Reinaldo Amor on 09-25-2021 Neutrophils/100 WBC (Bld) 60.6 % . [facility] No Panel InformationOrdered By: JOSE CASTILLO on 09-25-2021 Estimated GFR () > 60 mL/Min [facility] Comment on above: GFR estimated refere nce range: According to KDOQI guidelines, <60 ml/min/1.73m2 is sufficient to diagnose a patient with chronic kidney disease. Pharmacy Creatinine Clearance (Chem 63.47 [facility] Platelet mean volume Auto (B ld) [Entitic vol]Ordered By: Reinaldo Amor on 09-25-2021 Platelet mean volume (Bld) [Entitic vol] 8.6 fL 6.3-10.7 [facility] Platelets Auto (Bld) [#/Vol] Ordered By: Reinaldo Amor on 09-25-2021 Platelets (Bld) [#/Vol] 221 10*3/uL 150-450 [facility] Protein [Mass/volume] in Ser um or PlasmaOrdered By: PROVIDER JONATHAN on 09-25-2021 Protein [Mass/Vol] 7.6 g/dL 6.1-7.9 [facility] RBC Auto (Bld) [#/Vol]Ordere d By: Reinaldo Amor on 09-25-2021 RBC (Bld) [#/Vol] 4.35 10*6/uL 3.60-5.00 [facility] Serum or plasma alanine hughes otransferase measurement without P-5'-P (enzymatic activiOrdered By: PROVIDER JONATHAN on 09-25-2021 ALT No additional P-5'-P [Catalytic activity/Vol] 14 U/L 10-60 [facility] Serum or plasma albumin/glob ulin mass ratioOrdered By: PROVIDER TEMP on 09-25-2021 Albumin/Globulin [Mass ratio] 1.3 {ratio} [facility] Serum or plasma alkaline jaqueline sphatase measurement (enzymatic activity/volume)Ordered By: PROVIDER TEMP on 09-25-2021 ALP [Catalytic activity/Vol] 127 U/L 32-92 [facility] Serum or plasma amylase priscilla urement (enzymatic activity/volume)Ordered By: Reinaldo Amor on 09-25-2021 Amylase [Catalytic activity/Vol] 171 U/L 28-100 [facility] Serum or plasma aspartate am inotransferase measurement (enzymatic activity/volume)Ordered By: PROVIDER TEMP on 09-25-2021 AST [Catalytic activity/Vol] 21 U/L 10-42 [facility] Serum or plasma calcium priscilla urement (mass/volume)Ordered By: PROVIDER TEMP on 09-25-2021 Calcium [Mass/Vol] 10.1 mg/dL 8.2-10.2 [facility] Serum or plasma chloride daron surement (moles/volume)Ordered By: PROVIDER TEMP on 09-25-2021 Chloride [Moles/Vol] 103 mmol/L 95-114 [facility] Serum or plasma glucose priscilla urement (mass/volume)Ordered By: PROVIDER TEMP on 09-25-2021 Glucose [Mass/Vol] 93 mg/dL 70-100 [facility] Comment on above: ADA recommended refe rence range Random Glucose Reference Range is dependent on time and content of last meal. Glucose of more than 200 mg/dL in a nonstressed, ambulatory subject supports the diagnosis of Diabetes Mellitus. Serum or plasma potassium me asurement (moles/volume)Ordered By: PROVIDER TEMP on 09-25-2021 Potassium [Moles/Vol] 3.9 mmol/L 3.5-5.1 [facility] Serum or plasma sodium measu rement (moles/volume)Ordered By: PROVIDER TEMP on 09-25-2021 Sodium [Moles/Vol] 137 mmol/L 136-146 [facility] Serum or plasma total biliru bin measurement (mass/volume)Ordered By: PROVIDER TEMP on 09-25-2021 Bilirubin [Mass/Vol] 0.3 mg/dL 0.3-1.2 [facility] Serum or plasma total carbon dioxide measurement (moles/volume)Ordered By: PROVIDER TEMP on 09-25-2021 CO2 [Moles/Vol] 26.3 mmol/L 22.0-30.[address] [facility] Serum or plasma urea nitroge n measurement (mass/volume)Ordered By: PROVIDER TEMP on 09-25-2021 Urea nitrogen [Mass/Vol] 8 mg/dL 11-29 [facility] AMYLASEon 09-17-2021 Amylase [Catalytic activity/Vol] 142 U/L Critically high 25-115 [facility] Comment on above: Performed By: #### A MY, CMP, LIPA ####[facility] [address] [place] [address]Dr. Keturah Fisher CBC AUTO DIFFon 09-17-2021 BASO # 0.1 103/ul Normal 0.0-0.1 [facility] Comment on above: Performed By: #### C BC ####[facility] [address] [place] [address] [address]Dr. Keturah Fisher Basophils/100 WBC (Bld) 0.7 % Normal 0.2-2.0 [facility] Comment on above: Performed By: #### C BC ####[facility] [address] [place], [place] [address]Dr. Keturah Fisher EO # 0.1 103/ul Normal 0.0-0.7 [facility] Comment on above: Performed By: #### C BC ####[facility] [address] [place], [place] [address]Dr. Keturah Fisher Eosinophils/100 WBC (Bld) 1.3 % Normal 0.9-7.0 [facility] Comment on above: Performed By: #### C BC ####[facility] [address] [place], [place] [address]Dr. Keturah Fisher Erythrocyte distribution width (RBC) [Ratio] 13.2 % Normal 11.0-15.0 [facility] Comment on above: Performed By: #### C BC ####[facility] [address] [address]Dr. Keturah Fisher Hematocrit (Bld) [Volume fraction] 43.7 % Normal 36.0-48.0 [facility] Comment on above: Performed By: #### C BC ####[facility] [address] [place], [place] [address]Dr. Keturah Fisher Hemoglobin (Bld) [Mass/Vol] 14.7 g/dL Normal 12.0-16.0 [facility] Comment on above: Performed By: #### C BC ####[facility] [address] [place], [place] [address]Dr. Elisaeli Fisher IG # 0.01 10e3/ul Normal 0.00-0.03 [facility] Comment on above: Performed By: #### C BC ####[facility] [address] [place], [place] [address]Dr. Keturah Fisher IG % 0.1 % Normal 0.0-0.5 [facility] Comment on above: Performed By: #### C BC ####[facility] [address] [place], [place] [address]Dr. Elisaeli Fisher LYMPH # 2.7 103/ul Normal 1.2-3.8 [facility] Comment on above: Performed By: #### C BC ####[facility] [address] [place], [place] [address]Dr. Keturah Fisher Lymphocytes/100 WBC (Bld) 30.1 % Normal 20.5-60.0 [facility] Comment on above: Performed By: #### C BC ####[facility] [address] [place], [place] [address]Dr. Keturah Fisher MANUAL DIFF REQ NO Normal [facility] Comment on above: Performed By: #### C BC ####[facility] [address] [place], [place] [address]Dr. Keturah Fisher MCH (RBC) [Entitic mass] 32.4 pg Normal 26.7-34.0 [facility] Comment on above: Performed By: #### C BC ####[facility] [address] [place] [id number]. Elisaeli Fisher MCHC (RBC) [Mass/Vol] 33.6 g/dL Normal 29.9-35.2 [facility] Comment on above: Performed By: #### C BC ####[facility] [address] [place] [phone]. Keturah Fisher MCV (RBC) [Entitic vol] 96.3 fL Normal 81.0-99.0 [facility] Comment on above: Performed By: #### C BC ####[facility] [address] [place] [phone]. Keturah Fisher MONO # 0.8 103/ul Normal 0.3-0.8 [facility] Comment on above: Performed By: #### C BC ####[facility] [address] [place], [place] [address]Dr. Keturah Fisher Monocytes/100 WBC (Bld) 8.7 % Normal 1.7-12.0 [facility] Comment on above: Performed By: #### C BC ####[facility] [address] [place], [place] [address]Dr. Keturah Fisher NEUT # 5.4 103/ul Normal 1.4-6.5 [facility] Comment on above: Performed By: #### C BC ####[facility] [address] [place], [place] [address]Dr. Keturah Fisher Neutrophils/100 WBC (Bld) 59.1 % Normal 43.0-75.0 [facility] Comment on above: Performed By: #### C BC ####[facility] [address] [place], [place] [address]Dr. Keturah Fisher Platelet mean volume (Bld) [Entitic vol] 9.6 fL Normal 9.5-13.5 [facility] Comment on above: Performed By: #### C BC ####[facility] [address] [place], [place] [id number]. Keturah Fisher PLT 272 103/ul Normal 150-450 [facility] Comment on above: Performed By: #### C BC ####[facility] [address] [place], [place] [address]KxGopal Fisher RBC 4.54 106/ul Normal 4.20-5.40 [facility] Comment on above: Performed By: #### C BC ####[facility] [address] [place], [place] [address]WbGopal Fisher WBC 9.1 103/ul Normal 4.0-11.0 [facility] Comment on above: Performed By: #### C BC ####[facility] [address] [place], [place] [address]LqDr. Keturah Fisher ETHANOL (BLD ALC)on 09-18-19 22 ALC NOTE NOTE: 80 mg/dl is th e legal limit for a blood alcohol level Normal [facility] Comment on above: Performed By: #### L IPA, CMP, CRP, NAT #### [facility] Laboratory [address] [place] [address] Dr. Keturah Fisher Ethanol [Mass/Vol] mg/dL Normal [facility] Comment on above: Performed By: #### L IPA, CMP, CRP, NAT #### [facility] Laboratory [address] [place] [address] Dr. Keturah Fisher LIPASEon 09-17-2021 Lipase [Catalytic activity/Vol] 524.0 U/L Critically high 73.0-393.0 [facility] Comment on above: Performed By: #### C BC #### [facility] Laboratory [address] [address] [address] Keturah Fisher PROF 14(COMP METB)on 022 Albumin [Mass/Vol] 3.9 g/dL Normal 3.4-5.0 [facility] Comment on above: Performed By: #### C BC #### [facility] Laboratory [address] [place] [address] Dr. Keturah Fisher Albumin/Globulin [Mass ratio] 1.1 {ratio} Normal [facility] Comment on above: Performed By: #### C BC #### [facility] Laboratory [address] [address] [address] Kteurah Fisher ALP [Catalytic activity/Vol] 136 U/L Critically high 46-116 [facility] Comment on above: Performed By: #### C BC #### [facility] Laboratory [address] [address] [address] Keturah Fisher ALT [Catalytic activity/Vol] 21 U/L Normal 14-59 [facility] Comment on above: Performed By: #### C BC #### [facility] Laboratory [address] [address] [address] Keturah Fisher Anion gap [Moles/Vol] 12.7 mmol/L Normal [facility] Comment on above: Performed By: #### C BC #### [facility] Laboratory [address] [address] [address] Keturah Fisher AST [Catalytic activity/Vol] 16 U/L Normal 15-37 [facility] Comment on above: Performed By: #### C BC #### [facility] Laboratory [address] [address] [address] Keturah Fisher Bilirubin [Mass/Vol] 0.2 mg/dL Normal 0.2-1.0 [facility] Comment on above: Performed By: #### C BC #### [facility] Laboratory [address] [address] [address] Keturah Fisher Calcium [Mass/Vol] 9.9 mg/dL Normal 8.5-10.1 [facility] Comment on above: Performed By: #### C BC #### [facility] Laboratory [address] [address] [address] Keturah Fisehr Chloride [Moles/Vol] 106 mmol/L Normal 98-107 [facility] Comment on above: Performed By: #### C BC #### [facility] Laboratory [address] [address] [address] Keturah Fisher CO2 [Moles/Vol] 25.9 mmol/L Normal 21.0-32.0 [facility] Comment on above: Performed By: #### C BC #### [facility] Laboratory [address] [address] [address] Keturah Fisher Creatinine [Mass/Vol] 0.96 mg/dL Normal 0.55-1.02 [facility] Comment on above: Performed By: #### C BC #### [facility] Laboratory [address] [address] [address] Keturah Fisher EGFR-AF NICARAGUAN >60 Normal >=60 [facility] Comment on above: Performed By: #### C BC #### [facility] Laboratory [address] [address] [address] Keturah Fisher EGFR-NON AF NICARAGUAN >60 Normal >=60 [facility] Comment on above: Performed By: #### C BC #### [facility] Laboratory [address] [address] [address] Keturah Fisher Globulin (S) [Mass/Vol] 3.5 g/dL Normal [facility] Comment on above: Performed By: #### C BC #### [facility] Laboratory [address] [address] [address] Keturah Fisher Glucose [Mass/Vol] 113 mg/dL Critically high 74-106 [facility] Comment on above: Performed By: #### C BC #### [facility] Laboratory [address] [address] [address] Keturah Fisher Potassium [Moles/Vol] 3.6 mmol/L Normal 3.5-5.1 [facility] Comment on above: Performed By: #### C BC #### [facility] [address] [address] [address] Keturah Fisher Protein [Mass/Vol] 7.4 g/dL Normal 6.4-8.2 [facility] Comment on above: Performed By: #### C BC #### [facility] [address] [address] [address] Keturah Fisher Sodium [Moles/Vol] 141 mmol/L Normal 136-145 [facility] Comment on above: Performed By: #### C BC #### [facility] [address] [address] [address] Keturah Fisher Urea nitrogen [Mass/Vol] 8.0 mg/dL Normal 7.0-18.0 [facility] Comment on above: Performed By: #### C BC #### [facility] [address] [address] [address] Keturah Fisher Urea nitrogen/Creatinine [Mass ratio] 8.3 mg/mg Normal [facility] Comment on above: Performed By: #### C BC #### [facility] [address] [address] [address] Keturah Fisher AMYLASEon 08-26-2021 Amylase [Catalytic activity/Vol] 94 U/L Normal 25-115 The [facility] Comment on above: Performed By: #### A MY, CMP, LIPA ####[facility] [address] [address]Dr. Keturah Fisher CBC AUTO DIFFon 08-26-2021 BASO # 0.1 103/ul Normal 0.0-0.1 [facility] Comment on above: Performed By: #### L IPA, CMP, CRP, NAT #### [facility] [address] [place] [address] Dr. Keturah Fisher Basophils/100 WBC (Bld) 0.7 % Normal 0.2-2.0 [facility] Comment on above: Performed By: #### L IPA, CMP, CRP, NAT #### [facility] [address] [address] [address] Keturah Fisher EO # 0.2 103/ul Normal 0.0-0.7 [facility] Comment on above: Performed By: #### L IPA, CMP, CRP, NAT #### [facility] [address] [address] [address] Keturah Fisher Eosinophils/100 WBC (Bld) 2.5 % Normal 0.9-7.0 [facility] Comment on above: Performed By: #### L IPA, CMP, CRP, NAT #### [facility] [address] [address] [address] Keturah Fisher Erythrocyte distribution width (RBC) [Ratio] 13.1 % Normal 11.0-15.0 [facility] Comment on above: Performed By: #### L IPA, CMP, CRP, NAT #### [facility] [address] [place] [address] Dr. Ketuarh Fisher Hematocrit (Bld) [Volume fraction] 42.4 % Normal 36.0-48.0 [facility] Comment on above: Performed By: #### L IPA, CMP, CRP, NAT #### [facility] [address] [place] [address] Dr. Keturah Fisher Hemoglobin (Bld) [Mass/Vol] 14.1 g/dL Normal 12.0-16.0 [facility] Comment on above: Performed By: #### L IPA, CMP, CRP, NAT #### [facility] [address] [place] [address] Dr. Keturah Fisher IG # 0.03 10e3/ul Normal 0.00-0.03 [facility] Comment on above: Performed By: #### L IPA, CMP, CRP, NAT #### [facility] [address] [place] [address] Dr. Keturah Fisher IG % 0.3 % Normal 0.0-0.5 [facility] Comment on above: Performed By: #### L IPA, CMP, CRP, NAT #### [facility] [address] [place] [address] Dr. Keturah Fisher LYMPH # 2.6 103/ul Normal 1.2-3.8 The [facility] Comment on above: Performed By: #### L IPA, CMP, CRP, NAT #### [facility] [address] [place] [address] Dr. Keturah Fisher Lymphocytes/100 WBC (Bld) 27.7 % Normal 20.5-60.0 [facility] Comment on above: Performed By: #### L IPA, CMP, CRP, NAT #### [facility] [address] [place] [address] Dr. Keturah Fisher MANUAL DIFF REQ NO Normal [facility] Comment on above: Performed By: #### L IPA, CMP, CRP, NAT #### [facility] [address] [place] [address] Dr. Keturah Fisher MCH (RBC) [Entitic mass] 32.6 pg Normal 26.7-34.0 [facility] Comment on above: Performed By: #### L IPA, CMP, CRP, NAT #### [facility] [address] [place] [address] Dr. Keturah Fisher MCHC (RBC) [Mass/Vol] 33.3 g/dL Normal 29.9-35.2 The [facility] Comment on above: Performed By: #### L IPA, CMP, CRP, NAT #### [facility] [address] [place] [address] Dr. Keturah Fisher MCV (RBC) [Entitic vol] 97.9 fL Normal 81.0-99.0 The [facility] Comment on above: Performed By: #### L IPA, CMP, CRP, NAT #### [facility] [address] [place] [address] Dr. Keturah Fisher MONO # 1.2 103/ul Critically high 0.3-0.8 [facility] Comment on above: Performed By: #### L IPA, CMP, CRP, NAT #### [facility] [address] [place] [address] Dr. Keturah Fisher Monocytes/100 WBC (Bld) 12.9 % Critically high 1.7-12.0 [facility] Comment on above: Performed By: #### L IPA, CMP, CRP, NAT #### [facility] [address] [place] [address] Dr. Keturah Fisher NEUT # 5.3 103/ul Normal 1.4-6.5 The [facility] Comment on above: Performed By: #### L IPA, CMP, CRP, NAT #### [facility] [address] [place] [address] Dr. Keturah Fisher Neutrophils/100 WBC (Bld) 55.9 % Normal 43.0-75.0 The [facility] Comment on above: Performed By: #### L IPA, CMP, CRP, NAT #### [facility] [address] [place] [address] Dr. Keturah Fisher Platelet mean volume (Bld) [Entitic vol] 9.8 fL Normal 9.5-13.5 [facility] Comment on above: Performed By: #### L IPA, CMP, CRP, NAT #### [facility] [address] [address] [address] Keturah Fisher PLT 229 103/ul Normal 150-450 The [facility] Comment on above: Performed By: #### L IPA, CMP, CRP, NAT #### [facility] [address] [address] [address] Keturah Fisher RBC 4.33 106/ul Normal 4.20-5.40 [facility] Comment on above: Performed By: #### L IPA, CMP, CRP, NAT #### [facility] [address] [address] [address] Ketruah Fisher WBC 9.5 103/ul Normal 4.0-11.0 [facility] Comment on above: Performed By: #### L IPA, CMP, CRP, NAT #### [facility] [address] [address] [address] Keturah Fisher LIPASEon 08-26-2021 Lipase [Catalytic activity/Vol] 146.0 U/L Normal 73.0-393.0 [facility] Comment on above: Performed By: #### A MY, CMP, LIPA ####[facility] [address] [address]DrGopal Fisher PROF 14(COMP METB)on 022 Albumin [Mass/Vol] 3.5 g/dL Normal 3.4-5.0 [facility] Comment on above: Performed By: #### A MY, CMP, LIPA ####[facility] [address] [address]DrGopal Fisher Albumin/Globulin [Mass ratio] 1.1 {ratio} Normal [facility] Comment on above: Performed By: #### A MY, CMP, LIPA ####[facility] [address] [id number] Fisher ALP [Catalytic activity/Vol] 139 U/L Critically high 46-116 The [facility] Comment on above: Performed By: #### A MY, CMP, LIPA ####[facility] [address] [id number] Fisher ALT [Catalytic activity/Vol] 21 U/L Normal 14-59 [facility] Comment on above: Performed By: #### A MY, CMP, LIPA ####[facility] [address] [address]Dr. Keturah Fisher Anion gap [Moles/Vol] 11.4 mmol/L Normal Th e [facility] Comment on above: Performed By: #### A MY, CMP, LIPA ####[facility] [address] [address]Dr. Keturah Fisher AST [Catalytic activity/Vol] 21 U/L Normal 15-37 [facility] Comment on above: Performed By: #### A MY, CMP, LIPA ####[facility] [address] [place], [place] [address]Dr. Keturah Fisher Bilirubin [Mass/Vol] 0.2 mg/dL Normal 0.2-1.0 The [facility] Comment on above: Performed By: #### A MY, CMP, LIPA ####[facility] [address] [place], [place] [address]Dr. Keturah Fisher Calcium [Mass/Vol] 9.2 mg/dL Normal 8.5-10.1 [facility] Comment on above: Performed By: #### A MY, CMP, LIPA ####[facility] [address] [place], [place] [address]Dr. Keturah Fisher Chloride [Moles/Vol] 107 mmol/L Normal 98-107 [facility] Comment on above: Performed By: #### A MY, CMP, LIPA ####[facility] [address] [place], [place] [address]Dr. Keturah Fisher CO2 [Moles/Vol] 27.9 mmol/L Normal 21.0-32.0 [facility] Comment on above: Performed By: #### A MY, CMP, LIPA ####[facility] [address] [place], [place] [address]Dr. Keturah Fisher Creatinine [Mass/Vol] 0.84 mg/dL Normal 0.55-1.02 [facility] Comment on above: Performed By: #### A MY, CMP, LIPA ####[facility] [address] [id number]. Elisalan Fisher EGFR-AF NICARAGUAN >60 Normal >=60 [facility] Comment on above: Performed By: #### A MY, CMP, LIPA ####[facility] [address] [id number]. Keturah Fisher EGFR-NON AF NICARAGUAN >60 Normal >=60 The [facility] Comment on above: Performed By: #### A MY, CMP, LIPA ####[facility] [address] [address]Dr. Keturah Fisher Globulin (S) [Mass/Vol] 3.3 g/dL Normal The [facility] Comment on above: Performed By: #### A MY, CMP, LIPA ####[facility] [address] [address]Dr. Keturah Fisher Glucose [Mass/Vol] 106 mg/dL Normal 74-106 [facility] Comment on above: Performed By: #### A MY, CMP, LIPA ####[facility] [address] [address]Dr. Keturah Fisher Potassium [Moles/Vol] 4.3 mmol/L Normal 3.5-5.1 The [facility] Comment on above: Performed By: #### A MY, CMP, LIPA ####[facility] [address] [address]Dr. Elisalan Fisher Protein [Mass/Vol] 6.8 g/dL Normal 6.4-8.2 [facility] Comment on above: Performed By: #### A MY, CMP, LIPA ####[facility] [address] [address]Dr. Keturah Fisher Sodium [Moles/Vol] 142 mmol/L Normal 136-145 [facility] Comment on above: Performed By: #### A MY, CMP, LIPA ####[facility] [address] [address]Dr. Keturah Fisher Urea nitrogen [Mass/Vol] 11.0 mg/dL Normal 7.0-18.0 The [facility] Comment on above: Performed By: #### A MY, CMP, LIPA ####[facility] [address] [place], [place] [address]MkGopal Fisher Urea nitrogen/Creatinine [Mass ratio] 13.1 mg/mg Normal [facility] Comment on above: Performed By: #### A MY, CMP, LIPA ####[facility] [address] [place], [place] [address]Pg. Keturah Fisher XR ABD FLAT UP_PA Jorje [...] Date: 2021-08-26 04:59 Normal The [facility] AMYLASEon 08-22-2021 Amylase [Catalytic activity/Vol] 155 U/L Critically high 25-115 The [facility] Comment on above: Performed By: #### C MP, NAT, LIPA #### [facility] Laboratory [address] [place], [place] [address] Dr. Keturah Fisher CBC AUTO DIFFon 08-22-2021 BASO # 0.1 103/ul Normal 0.0-0.1 [facility] Comment on above: Performed By: #### L IPA, CMP, CRP, NAT #### [facility] [address] [id number] [address] Keturah Fisher Basophils/100 WBC (Bld) 0.7 % Normal 0.2-2.0 The [facility] Comment on above: Performed By: #### L IPA, CMP, CRP, NAT #### [facility] Laboratory [address] [place] [address] Dr. Keturah Fisher EO # 0.1 103/ul Normal 0.0-0.7 The [facility] Comment on above: Performed By: #### L IPA, CMP, CRP, NAT #### [facility] Laboratory [address] [place] [address] Dr. Keturah Fisher Eosinophils/100 WBC (Bld) 0.7 % Critically low 0.9-7.0 The [facility] Comment on above: Performed By: #### L IPA, CMP, CRP, NAT #### [facility] Laboratory [address] [place] [address] Dr. Keturah Fisher Erythrocyte distribution width (RBC) [Ratio] 13.2 % Normal 11.0-15.0 [facility] Comment on above: Performed By: #### L IPA, CMP, CRP, NAT #### [facility] Laboratory [address] [place] [address] Dr. Keturah Fisher Hematocrit (Bld) [Volume fraction] 41.1 % Normal 36.0-48.0 [facility] Comment on above: Performed By: #### L IPA, CMP, CRP, NAT #### [facility] Laboratory [address] [place] [address] Dr. Keturah Fisher Hemoglobin (Bld) [Mass/Vol] 13.8 g/dL Normal 12.0-16.0 [facility] Comment on above: Performed By: #### L IPA, CMP, CRP, NAT #### [facility] Laboratory [address] [place] [address] Dr. Keturah Fisher IG # 0.03 10e3/ul Normal 0.00-0.03 The [facility] Comment on above: Performed By: #### L IPA, CMP, CRP, NAT #### [facility] Laboratory [address] [place] [address] Dr. Keturah Fisher IG % 0.2 % Normal 0.0-0.5 The [facility] Comment on above: Performed By: #### L IPA, CMP, CRP, NAT #### [facility] Laboratory [address] [place] [address] Dr. Keturah Fisher LYMPH # 2.6 103/ul Normal 1.2-3.8 [facility] Comment on above: Performed By: #### L IPA, CMP, CRP, NAT #### [facility] [address] [place] [address] Dr. Keturah Fisher Lymphocytes/100 WBC (Bld) 21.4 % Normal 20.5-60.0 [facility] Comment on above: Performed By: #### L IPA, CMP, CRP, NAT #### [facility] [address] [place] [address] Dr. Keturah Fisher MANUAL DIFF REQ NO Normal [facility] Comment on above: Performed By: #### L IPA, CMP, CRP, NAT #### [facility] [address] [place] [address] Dr. Keturah Fisher MCH (RBC) [Entitic mass] 32.2 pg Normal 26.7-34.0 [facility] Comment on above: Performed By: #### L IPA, CMP, CRP, NAT #### [facility] [address] [place] [address] Dr. Keturah Fisher MCHC (RBC) [Mass/Vol] 33.6 g/dL Normal 29.9-35.2 [facility] Comment on above: Performed By: #### L IPA, CMP, CRP, NAT #### [facility] [address] [place] [address] Dr. Keturah Fisher MCV (RBC) [Entitic vol] 95.8 fL Normal 81.0-99.0 [facility] Comment on above: Performed By: #### L IPA, CMP, CRP, NAT #### [facility] [address] [place] [address] Dr. Keturah Fisher MONO # 0.9 103/ul Critically high 0.3-0.8 [facility] Comment on above: Performed By: #### L IPA, CMP, CRP, NAT #### [facility] [address] [place] [address] Dr. Keturah Fisher Monocytes/100 WBC (Bld) 7.6 % Normal 1.7-12.0 The [facility] Comment on above: Performed By: #### L IPA, CMP, CRP, NAT #### [facility] [address] [address] [address] Keturah Fisher NEUT # 8.5 103/ul Critically high 1.4-6.5 [facility] Comment on above: Performed By: #### L IPA, CMP, CRP, NAT #### [facility] [address] [place] [address] Dr. Keturah Fisher Neutrophils/100 WBC (Bld) 69.4 % Normal 43.0-75.0 The [facility] Comment on above: Performed By: #### L IPA, CMP, CRP, NAT #### [facility] Laboratory [address] [place] [address] Dr. Keturah Fisher Platelet mean volume (Bld) [Entitic vol] 9.5 fL Normal 9.5-13.5 [facility] Comment on above: Performed By: #### L IPA, CMP, CRP, NAT #### [facility] Laboratory [address] [place] [address] Dr. Keturah Fisher PLT 261 103/ul Normal 150-450 The [facility] Comment on above: Performed By: #### L IPA, CMP, CRP, NAT #### [facility] Laboratory [address] [place] [address] Dr. Keturah Fisher RBC 4.29 106/ul Normal 4.20-5.40 The [facility] Comment on above: Performed By: #### L IPA, CMP, CRP, NAT #### [facility] Laboratory [address] [place] [address] Dr. Keturah Fisher WBC 12.2 103/ul Critically high 4.0-11.0 [facility] Comment on above: Performed By: #### L IPA, CMP, CRP, NAT #### [facility] [address] [place] [address] Dr. Keturah Fisher LIPASEon 08-22-2021 Lipase [Catalytic activity/Vol] 419.0 U/L Critically high 73.0-393.0 [facility] Comment on above: Performed By: #### C NAT MEDEL, LIPA #### [facility] [address] [address] [address] Keturah Fisher PROF 14(COMP METB)on 022 Albumin [Mass/Vol] 3.9 g/dL Normal 3.4-5.0 [facility] Comment on above: Performed By: #### C LIZY NAT, LIPA #### [facility] [address] [address] [address] Keturah Fisher Albumin/Globulin [Mass ratio] 1.2 {ratio} Normal [facility] Comment on above: Performed By: #### C NAT MEDEL LIPA #### [facility] [address] [place] [address] Dr. Keturah Fisher ALP [Catalytic activity/Vol] 137 U/L Critically high 46-116 [facility] Comment on above: Performed By: #### C NAT MEDEL LIPA #### [facility] [address] [place] [address] Dr. Keturah Fisher ALT [Catalytic activity/Vol] 22 U/L Normal 14-59 [facility] Comment on above: Performed By: #### C NAT MEDEL LIPA #### [facility] [address] [place] [address] Dr. Keturah Fisher Anion gap [Moles/Vol] 12.9 mmol/L Normal [facility] Comment on above: Performed By: #### C NAT MEDEL, LIPA #### [facility] [address] [place] [address] Dr. Keturah Fisher AST [Catalytic activity/Vol] 20 U/L Normal 15-37 [facility] Comment on above: Performed By: #### C NAT MEDEL LIPA #### [facility] [address] [place] [address] Dr. Keturah Fisher Bilirubin [Mass/Vol] 0.2 mg/dL Normal 0.2-1.0 [facility] Comment on above: Performed By: #### C NAT MEDEL, LIPA #### [facility] [address] [address] [address] Keturah Fisher Calcium [Mass/Vol] 9.5 mg/dL Normal 8.5-10.1 [facility] Comment on above: Performed By: #### C NAT MEDEL, LIPA #### [facility] [address] [place] [address] Dr. Keturah Fisher Chloride [Moles/Vol] 104 mmol/L Normal 98-107 [facility] Comment on above: Performed By: #### C LIZY NAT, LIPA #### [facility] [address] [place] [address] Dr. Keturah Fisher CO2 [Moles/Vol] 23.7 mmol/L Normal 21.0-32.0 [facility] Comment on above: Performed By: #### C LIZY NAT, LIPA #### [facility] [address] [place] [address] Dr. Keturah Fisher Creatinine [Mass/Vol] 0.85 mg/dL Normal 0.55-1.02 [facility] Comment on above: Performed By: #### C LIZY NAT, LIPA #### [facility] [address] [place] [address] Dr. Keturah Fisher EGFR-AF NICARAGUAN >60 Normal >=60 [facility] Comment on above: Performed By: #### C NAT MEDEL, LIPA #### [facility] [address] [place] [address] Dr. Keturah Fisher EGFR-NON AF NICARAGUAN >60 Normal >=60 [facility] Comment on above: Performed By: #### C LIZY NAT, LIPA #### [facility] [address] [place] [address] Dr. Keturah Fisher Globulin (S) [Mass/Vol] 3.3 g/dL Normal [facility] Comment on above: Performed By: #### C LIZY NAT, LIPA #### [facility] [address] [place] [address] Dr. Keturah Fisher Glucose [Mass/Vol] 130 mg/dL Critically high 74-106 T [facility] Comment on above: Performed By: #### C NAT MEDEL, LIPA #### [facility] [address] [address] [address] Keturah Fisher Potassium [Moles/Vol] 3.6 mmol/L Normal 3.5-5.1 [facility] Comment on above: Performed By: #### C MP, NAT, LIPA #### [facility] Laboratory [address] [address] [address] Keturah Fisher Protein [Mass/Vol] 7.2 g/dL Normal 6.4-8.2 [facility] Comment on above: Performed By: #### C MP, NAT, LIPA #### [facility] Laboratory [address] [address] [address] Keturah Fisher Sodium [Moles/Vol] 137 mmol/L Normal 136-145 [facility] Comment on above: Performed By: #### C LIZY NAT, LIPA #### [facility] Laboratory [address] [place] [address] Dr. Keturah Fisher Urea nitrogen [Mass/Vol] 9.0 mg/dL Normal 7.0-18.0 [facility] Comment on above: Performed By: #### C LIZY NAT, LIPA #### [facility] Laboratory [address] [place] [address] Dr. Keturah Fisher Urea nitrogen/Creatinine [Mass ratio] 10.6 mg/mg Normal [facility] Comment on above: Performed By: #### C LIZY, NAT, LIPA #### [facility] Laboratory [address] [place] [address] Dr. Keturah Fisher XR ABD FLAT UP_PA [...] Date: 2021-08-22 14:54 Normal The [facility] CBC AUTO DIFFon 08-13-2021 BASO # 0.1 103/ul Normal 0.0-0.1 The [facility] Comment on above: Performed By: #### C BC ####[facility] [address] [id number]. Keturah Fisher Basophils/100 WBC (Bld) 0.6 % Normal 0.2-2.0 The [facility] Comment on above: Performed By: #### C BC ####[facility] [address] [address]Dr. Keturah Fisher EO # 0.1 103/ul Normal 0.0-0.7 The [facility] Comment on above: Performed By: #### C BC ####[facility] [address] [address]Dr. Keturah Fisher Eosinophils/100 WBC (Bld) 1.1 % Normal 0.9-7.0 The [facility] Comment on above: Performed By: #### C BC ####[facility] [address] [place], [place] [id number]. Keturah Fisher Erythrocyte distribution width (RBC) [Ratio] 12.6 % Normal 11.0-15.0 The [facility] Comment on above: Performed By: #### C BC ####[facility] [address] [place], [place] [id number]. Keturah Fisher Hematocrit (Bld) [Volume fraction] 42.3 % Normal 36.0-48.0 The [facility] Comment on above: Performed By: #### C BC ####[facility] [address] [phone]. Keturah Fisher Hemoglobin (Bld) [Mass/Vol] 14.1 g/dL Normal 12.0-16.0 The [facility] Comment on above: Performed By: #### C BC ####[facility] [address] [phone]. Keturah Fisher IG # 0.03 10e3/ul Normal 0.00-0.03 [facility] Comment on above: Performed By: #### C BC ####[facility] [address] [address]Dr. Keturah Fisher IG % 0.3 % Normal 0.0-0.5 [facility] Comment on above: Performed By: #### C BC ####[facility] [address] [address]Dr. Ketruah Fisher LYMPH # 2.4 103/ul Normal 1.2-3.8 The [facility] Comment on above: Performed By: #### C BC ####[facility] [address] [address]Dr. Keturah Fisher Lymphocytes/100 WBC (Bld) 22.3 % Normal 20.5-60.0 [facility] Comment on above: Performed By: #### C BC ####[facility] [address] [place], [place] [address]Dr. Keturah Fisher MANUAL DIFF REQ NO Normal [facility] Comment on above: Performed By: #### C BC ####[facility] [address] [address]Dr. Keturah Fisher MCH (RBC) [Entitic mass] 32.5 pg Normal 26.7-34.0 [facility] Comment on above: Performed By: #### C BC ####[facility] [address] [address]Dr. Keturah Fisher MCHC (RBC) [Mass/Vol] 33.3 g/dL Normal 29.9-35.2 The [facility] Comment on above: Performed By: #### C BC ####[facility] [address] [address]Dr. Keturah Fisher MCV (RBC) [Entitic vol] 97.5 fL Normal 81.0-99.0 The [facility] Comment on above: Performed By: #### C BC ####[facility] [address] [address]Dr. Keturah Fisher MONO # 1.0 103/ul Critically high 0.3-0.8 [facility] Comment on above: Performed By: #### C BC ####[facility] [address] [phone]. Keturah Fisher Monocytes/100 WBC (Bld) 8.7 % Normal 1.7-12.0 The [facility] Comment on above: Performed By: #### C BC ####[facility] [address] [phone]. Keturah Fisher NEUT # 7.3 103/ul Critically high 1.4-6.5 [facility] Comment on above: Performed By: #### C BC ####[facility] [address] [phone]. Keturah Fisher Neutrophils/100 WBC (Bld) 67.0 % Normal 43.0-75.0 The [facility] Comment on above: Performed By: #### C BC ####[facility] [address] [phone]. Keturah Fisher Platelet mean volume (Bld) [Entitic vol] 9.5 fL Normal 9.5-13.5 [facility] Comment on above: Performed By: #### C BC ####[facility] [address] [phone]. Keturah Fisher PLT 272 103/ul Normal 150-450 The [facility] Comment on above: Performed By: #### C BC ####[facility] [address] [phone]. Keturah Fisher RBC 4.34 106/ul Normal 4.20-5.40 The [facility] Comment on above: Performed By: #### C BC ####[facility] [address] [phone]. Keturah Fisher WBC 10.9 103/ul Normal 4.0-11.0 The [facility] Comment on above: Performed By: #### C BC ####[facility] [address] [phone]. Keturah Fisher CT ABD/PELV W CONon 08-14-19 [...] HEBERT MCPHERSON Date: 2021-08-13 17:[address] [facility] ER URINE PROFILEon 2 Bilirubin Ql (U) Negative Normal NEGATIVE [facility] Comment on above: Performed By: #### C BC #### [facility] Laboratory [address] [place] [address] Dr. Keturah Fisher Clarity (U) CLEAR Normal CLEAR [facility] Comment on above: Performed By: #### C BC #### [facility] Laboratory [address] [place] [address] Dr. Keturah Fisher Color (U) LT. YELLOW Normal YELLOW [facility] Comment on above: Performed By: #### C BC #### [facility] Laboratory [address] [place] [address] Dr. Keturah BAH A micrscopic examina tion will be performed if indicated. Normal [facility] Comment on above: Performed By: #### C BC #### [facility] Laboratory [address] [place] [address] Dr. Keturah Fisher Glucose Ql (U) Negative Normal NEGATIVE [facility] Comment on above: Performed By: #### C BC #### [facility] Laboratory [address] [place] [address] Dr. Ketuarh Fisher Hemoglobin Ql (U) Negative Normal NEGATIVE [facility] Comment on above: Performed By: #### C BC #### [facility] Laboratory [address] [place] [address] Dr. Keturah Fisher Ketones Ql (U) Negative Normal NEGATIVE [facility] Comment on above: Performed By: #### C BC #### [facility] Laboratory [address] [place] [address] Dr. Keturah Fisher LEUKOCYTES Negative Normal NEGATIVE [facility] Comment on above: Performed By: #### C BC #### [facility] Laboratory [address] [place] [address] Dr. Keturah Fisher Nitrite Ql (U) Negative Normal NEGATIVE [facility] Comment on above: Performed By: #### C BC #### [facility] Laboratory [address] [place] [address] Dr. Keturah Fisher pH (U) 5.5 [pH] Normal 5-9 [facility] Comment on above: Performed By: #### C BC #### [facility] Laboratory [address] [place] [address] Dr. Keturah Fisher SPEC GRAVITY 1.010 Normal 1.005-<=1. 025 [facility] Comment on above: Performed By: #### C BC #### [facility] Laboratory [address] [place] [address] Dr. Keturah Fisher UA PROTEIN Negative Normal NEGATIVE/ TRACE [facility] Comment on above: Performed By: #### C BC #### [facility] Laboratory [address] [place] [address] Dr. Keturah Fisher UR MICRO IND NOT INDICATED Normal [facility] Comment on above: Performed By: #### C BC #### [facility] Laboratory [address] [place] [address] Dr. Keturah Fisher Urobilinogen Qn (U) 0.2 {Marizol'U}/dL Normal 0.2 - 1. 0 [facility] Comment on above: Performed By: #### C BC #### [facility] Laboratory [address] [place] [address] Dr. Keturah Fisher LIPASEon 08-13-2021 Lipase [Catalytic activity/Vol] 217.0 U/L Normal 73.0-393.0 [facility] Comment on above: Performed By: #### C BC #### [facility] Laboratory [address] [place] [address] Dr. Keturah Fisher PROF 14(COMP METB)on 022 Albumin [Mass/Vol] 3.9 g/dL Normal 3.4-5.0 [facility] Comment on above: Performed By: #### C BC #### [facility] Laboratory [address] [place] [address] Dr. Keturah Fisher Albumin/Globulin [Mass ratio] 1.1 {ratio} Normal [facility] Comment on above: Performed By: #### C BC #### [facility] Laboratory [address] [place] [address] Dr. Keturah Fisher ALP [Catalytic activity/Vol] 140 U/L Critically high 46-116 [facility] Comment on above: Performed By: #### C BC #### [facility] Laboratory [address] [address] [address] Keturah Fisher ALT [Catalytic activity/Vol] 24 U/L Normal 14-59 [facility] Comment on above: Performed By: #### C BC #### [facility] Laboratory [address] [address] [address] Keturah Fisher Anion gap [Moles/Vol] 11.7 mmol/L Normal [facility] Comment on above: Performed By: #### C BC #### [facility] Laboratory [address] [address] [address] Keturah Fisher AST [Catalytic activity/Vol] 19 U/L Normal 15-37 [facility] Comment on above: Performed By: #### C BC #### [facility] Laboratory [address] [place] [address] Dr. Keturah Fisher Bilirubin [Mass/Vol] 0.2 mg/dL Normal 0.2-1.0 [facility] Comment on above: Performed By: #### C BC #### [facility] Laboratory [address] [place] [address] Dr. Keturah Fisher Calcium [Mass/Vol] 9.9 mg/dL Normal 8.5-10.1 [facility] Comment on above: Performed By: #### C BC #### [facility] Laboratory [address] [place] [address] Dr. Keturah Fisher Chloride [Moles/Vol] 105 mmol/L Normal 98-107 [facility] Comment on above: Performed By: #### C BC #### [facility] Laboratory [address] [address] [address] Keturah Fisher CO2 [Moles/Vol] 29.1 mmol/L Normal 21.0-32.0 [facility] Comment on above: Performed By: #### C BC #### [facility] Laboratory [address] [address] [address] Keturah Fisher Creatinine [Mass/Vol] 0.81 mg/dL Normal 0.55-1.02 [facility] Comment on above: Performed By: #### C BC #### [facility] Laboratory [address] [address] [address] Keturah Fisher EGFR-AF NICARAGUAN >60 Normal >=60 [facility] Comment on above: Performed By: #### C BC #### [facility] Laboratory [address] [address] [address] Keturah Fisher EGFR-NON AF NICARAGUAN >60 Normal >=60 [facility] Comment on above: Performed By: #### C BC #### [facility] Laboratory [address] [address] [address] Keturah Fisher Globulin (S) [Mass/Vol] 3.4 g/dL Normal [facility] Comment on above: Performed By: #### C BC #### [facility] Laboratory [address] [address] [address] Keturah Fisher Glucose [Mass/Vol] 87 mg/dL Normal 74-106 [facility] Comment on above: Performed By: #### C BC #### [facility] Laboratory [address] [address] [address] Keturah Fisher Potassium [Moles/Vol] 3.8 mmol/L Normal 3.5-5.1 [facility] Comment on above: Performed By: #### C BC #### [facility] Laboratory [address] [place] [address] Dr. Keturah Fisher Protein [Mass/Vol] 7.3 g/dL Normal 6.4-8.2 [facility] Comment on above: Performed By: #### C BC #### [facility] Laboratory [address] [address] [address] Keturah Fisher Sodium [Moles/Vol] 142 mmol/L Normal 136-145 [facility] Comment on above: Performed By: #### C BC #### [facility] Laboratory [address] [address] [address] Keturah Fisher Urea nitrogen [Mass/Vol] 11.0 mg/dL Normal 7.0-18.0 [facility] Comment on above: Performed By: #### C BC #### [facility] Laboratory [address] [address] [address] Keturah Fisher Urea nitrogen/Creatinine [Mass ratio] 13.6 mg/mg Normal [facility] Comment on above: Performed By: #### C #### [facility] Laboratory [address] [address] [address] Keturah Fisher Albumin [Mass/volume] in Ser um or PlasmaOrdered By: Keaton Barnard on 08-11-2021 Albumin [Mass/Vol] 3.4 g/dL 3.2-5.5 [facility] Basophils Auto (Bld) [#/Vol] Ordered By: Keaton Barnard on 08-11-2021 Basophils (Bld) [#/Vol] 0.1 10*3/uL 0.0-0.2 [facility] Basophils/100 WBC Auto (Bld) Ordered By: Keaton Barnard on 08-11-2021 Basophils/100 WBC (Bld) 0.9 % . [facility] Bilirubin Test strip Ql (U)O rdered By: Keaton Barnard on 08-11-2021 Bilirubin Ql (U) Negative Negative [facility] Blood hemoglobin measurement (mass/volume)Ordered By: Keaton Barnard on 08-11-2021 Hemoglobin (Bld) [Mass/Vol] 14.1 g/dL 11.8-15.4 [facility] Blood leukocytes automated c ount (number/volume)Ordered By: Keaton Barnard on 08-11-2021 WBC (Bld) [#/Vol] 9.7 10*3/uL 4.5-11.0 [facility] Color Auto (U)Ordered By: Luis Barnard on 08-11-2021 Color (U) Yellow Yellow [facility] Creatinine and Glomerular fi ltration rate.predicted panel (S/P/Bld)Ordered By: Keaton Barnard on 08-11-2021 Creatinine [Mass/Vol] 0.95 mg/dL 0.44-1.03 [facility] Direct bilirubin measurement Ordered By: Keaton Barnard on 08-11-2021 Bilirubin.direct [Mass/Vol] mg/dL 0.0-0.4 [facility] Eosinophils Auto (Bld) [#/Vo l]Ordered By: Keaton Barnard on 08-11-2021 Eosinophils (Bld) [#/Vol] 0.1 10*3/uL 0.0-0.45 [facility] Eosinophils/100 WBC Auto (Bl d)Ordered By: Keaton Barnard on 08-11-2021 Eosinophils/100 WBC (Bld) 1.3 % . [facility] Erythrocyte distribution wid th Auto (RBC) [Ratio]Ordered By: Keaton Barnard on 08-11-2021 Erythrocyte distribution width (RBC) [Ratio] 13.2 % 11.9-15.3 [facility] Estimated glomerular filtrat ion rate (GFR) non- AmericanOrdered By: Keaton Barnard on 08-11-2021 GFR/1.73 sq M.predicted among non-blacks MDRD (S/P/Bld) [Vol rate/Area] > 60 mL/Min [facility] Globulin Calc (S) [Mass/Vol] Ordered By: Keaton Barnard on 08-11-2021 Globulin (S) [Mass/Vol] 2.6 g/dL [facility] Hematocrit Auto (Bld) [Volum e fraction]Ordered By: Keaton Barnard on 08-11-2021 Hematocrit (Bld) [Volume fraction] 42.1 % 34.0-46.4 [facility] Ketones Auto test strip (U) [Mass/Vol]Ordered By: Keaton Barnard on 08-11-2021 Ketones (U) [Mass/Vol] Negative Negative [facility] Laboratory - Chemistry and C hemistry - challengeOrdered By: Keaton Barnard on 08-11-2021 Lipase [Catalytic activity/Vol] 89.0 U/L 22-51 [facility] Laboratory - CoagulationOrde red By: Keaton Barnard on 08-11-2021 PT Coag (PPP) [Time] 12.5 s 9.0-12.9 [facility] Laboratory - Hematology and Cell countsOrdered By: Keaton Barnard on 08-11-2021 Nucleated RBC/100 WBC (Bld) [Ratio] 0.1 % 0-0.5 [facility] Lymphocytes Auto (Bld) [#/Vo l]Ordered By: Keaton Barnard on 08-11-2021 Lymphocytes (Bld) [#/Vol] 2.5 10*3/uL 1.00-4.8 [facility] Lymphocytes/100 WBC Auto (Bl d)Ordered By: Keaton Barnard on 08-11-2021 Lymphocytes/100 WBC (Bld) 25.8 % . [facility] MCH Auto (RBC) [Entitic mass ]Ordered By: Keaton Barnard on 08-11-2021 MCH (RBC) [Entitic mass] 32.4 pg 24.7-34.3 [facility] MCHC Auto (RBC) [Mass/Vol]Or dered By: Keaton Barnard on 08-11-2021 MCHC (RBC) [Mass/Vol] 33.4 g/dL 32.0-35.0 [facility] MCV Auto (RBC) [Entitic vol] Ordered By: Keaton Barnard on 08-11-2021 MCV (RBC) [Entitic vol] 96.8 fL 80-100 [facility] Monocytes Auto (Bld) [#/Vol] Ordered By: Keaton Barnard on 08-11-2021 Monocytes (Bld) [#/Vol] 0.8 10*3/uL 0.0-0.8 [facility] Monocytes/100 WBC Auto (Bld) Ordered By: Keaton Barnard on 08-11-2021 Monocytes/100 WBC (Bld) 8.7 % . [facility] Neutrophils Auto (Bld) [#/Vo l]Ordered By: Keaton Barnard on 08-11-2021 Neutrophils (Bld) [#/Vol] 6.1 10*3/uL 1.8-7.7 [facility] Neutrophils/100 WBC Auto (Bl d)Ordered By: Keaton Barnard on 08-11-2021 Neutrophils/100 WBC (Bld) 63.3 % . [facility] Nitrite Test strip Ql (U)Ord ered By: Keaton Barnard on 08-11-2021 Nitrite Ql (U) Negative Negative [facility] No Panel InformationOrdered By: Keaton Barnard on 08-11-2021 Estimated GFR () > 60 mL/Min [facility] Comment on above: GFR estimated refere nce range: According to KDOQI guidelines, <60 ml/min/1.73m2 is sufficient to diagnose a patient with chronic kidney disease. Pharmacy Creatinine Clearance (Chem 62.33 [facility] Platelet mean volume Auto (B ld) [Entitic vol]Ordered By: Keaton Barnard on 08-11-2021 Platelet mean volume (Bld) [Entitic vol] 8.0 fL 6.3-10.7 [facility] Platelet poor plasma interna tional normalized ratio (INR) by coagulation assay (relatOrdered By: Keaton Barnard on 08-11-2021 INR Coag (PPP) [Relative time] 1.1 {INR} [facility] Comment on above: INR Therapeutic Rang [...] 08-11-2021 Platelets (Bld) [#/Vol] 252 10*3/uL 150-450 [facility] Protein Auto test strip (U) [Mass/Vol]Ordered By: Keaton Barnard on 08-11-2021 Protein (U) [Mass/Vol] Negative Negative [facility] Protein [Mass/volume] in Ser um or PlasmaOrdered By: Keaton Barnard on 08-11-2021 Protein [Mass/Vol] 6.0 g/dL 6.1-7.9 [facility] RBC Auto (Bld) [#/Vol]Ordere d By: Keaton Barnard on 08-11-2021 RBC (Bld) [#/Vol] 4.35 10*6/uL 3.60-5.00 [facility] Serum or plasma alanine hughes otransferase measurement without P-5'-P (enzymatic activiOrdered By: Keaton Barnard on 08-11-2021 ALT No additional P-5'-P [Catalytic activity/Vol] 12 U/L 10-60 [facility] Serum or plasma albumin/glob ulin mass ratioOrdered By: Keaton Barnard on 08-11-2021 Albumin/Globulin [Mass ratio] 1.3 {ratio} [facility] Serum or plasma alkaline jaqueline sphatase measurement (enzymatic activity/volume)Ordered By: Keaton Barnard on 08-11-2021 ALP [Catalytic activity/Vol] 98 U/L 32-92 [facility] Serum or plasma aspartate am inotransferase measurement (enzymatic activity/volume)Ordered By: Keaton Barnard on 08-11-2021 AST [Catalytic activity/Vol] 17 U/L 10-42 [facility] Serum or plasma calcium priscilla urement (mass/volume)Ordered By: Keaton Barnard on 08-11-2021 Calcium [Mass/Vol] 9.3 mg/dL 8.2-10.2 [facility] Serum or plasma chloride daron surement (moles/volume)Ordered By: Keaton Barnard on 08-11-2021 Chloride [Moles/Vol] 104 mmol/L 95-114 [facility] Serum or plasma glucose priscilla urement (mass/volume)Ordered By: Keaton Barnard on 08-11-2021 Glucose [Mass/Vol] 95 mg/dL 70-100 [facility] Comment on above: ADA recommended refe rence range Random Glucose Reference Range is dependent on time and content of last meal. Glucose of more than 200 mg/dL in a nonstressed, ambulatory subject supports the diagnosis of Diabetes Mellitus. Serum or plasma non-glucuron idated bilirubin measurement (mass/volume)Ordered By: Keaton Barnard on 08-11-2021 Bilirubin.indirect [Mass/Vol] TNP [facility] Comment on above: Test not performed Serum or plasma potassium me asurement (moles/volume)Ordered By: Keaton Barnard on 08-11-2021 Potassium [Moles/Vol] 3.8 mmol/L 3.5-5.1 [facility] Serum or plasma sodium measu rement (moles/volume)Ordered By: Keaton Barnard on 08-11-2021 Sodium [Moles/Vol] 138 mmol/L 136-146 [facility] Serum or plasma total biliru bin measurement (mass/volume)Ordered By: Keaton Barnard on 08-11-2021 Bilirubin [Mass/Vol] 0.3 mg/dL 0.3-1.2 [facility] Serum or plasma total carbon dioxide measurement (moles/volume)Ordered By: Keaton Barnard on 08-11-2021 CO2 [Moles/Vol] 24.8 mmol/L 22.0-30.[address] [facility] Serum or plasma urea nitroge n measurement (mass/volume)Ordered By: Keaton Barnard on 08-11-2021 Urea nitrogen [Mass/Vol] 10 mg/dL 9-23 [facility] Specific gravity Auto test s trip (U) [Rel density]Ordered By: Keaton Barnard on 08-11-2021 Specific gravity (U) [Rel density] 1.028 1.001-1.03 0 [facility] Troponin I.cardiac [Mass/vol ume] in Serum or Plasma by High sensitivity methodOrdered By: Keaton Barnard on 08-11-2021 Troponin I.cardiac High sensitivity method [Mass/Vol] 3 pg/mL 0-15 [facility] Urine clarity by refractomet ry automatedOrdered By: Keaton Barnard on 08-11-2021 Clarity Refractometry automated (U) Clear Clear [facility] Urine glucose measurement by automated test strip (mass/volume)Ordered By: Keaton Barnard on 08-11-2021 Glucose Auto test strip (U) [Mass/Vol] Normal mg/dL Normal [facility] Urine hemoglobin detection b y automated test stripOrdered By: Keaton Barnard on 08-11-2021 Hemoglobin Auto test strip Ql (U) Negative Negative [facility] Urine leukocyte esterase det ection by automated test stripOrdered By: Keaton Barnard on 08-11-2021 Leukocyte esterase Auto test strip Ql (U) Negative Negative [facility] Urobilinogen Auto test strip (U) [Mass/Vol]Ordered By: Keaton Barnard on 08-11-2021 Urobilinogen (U) [Mass/Vol] Normal mg/dL Normal [facility] pH Auto test strip (U)Ordere d By: Keaton Barnard on 08-11-2021 pH (U) 5.0 [pH] 5.0-9.0 [facility] AMYLASEon 07-31-2021 Amylase [Catalytic activity/Vol] 158 U/L Critically high 25-115 [facility] Comment on above: Performed By: #### L IPA, CMP, CRP, NAT #### [facility] Laboratory [address], [place] [address] Dr. Keturah Fisher CBC AUTO DIFFon 07-31-2021 BASO # 0.1 103/ul Normal 0.0-0.1 [facility] Comment on above: Performed By: #### C BC ####[facility] [address] [place] [phone]. Keturah Fisher Basophils/100 WBC (Bld) 0.7 % Normal 0.2-2.0 [facility] Comment on above: Performed By: #### C BC ####[facility] Knmlrglbyf[address] [place] [phone] Fisher EO # 0.1 103/ul Normal 0.0-0.7 [facility] Comment on above: Performed By: #### C BC ####[facility] Qayzisdcpo[address] [place] [address]DrGopal Fisher Eosinophils/100 WBC (Bld) 0.9 % Normal 0.9-7.0 [facility] Comment on above: Performed By: #### C BC ####[facility] Wkocxfcjnn[address] [place] [address]DrGopal Fisher Erythrocyte distribution width (RBC) [Ratio] 12.7 % Normal 11.0-15.0 [facility] Comment on above: Performed By: #### C BC ####[facility] Qvcoxpvsxx69[address] [place] [id number]. Keturah Fisher Hematocrit (Bld) [Volume fraction] 43.2 % Normal 36.0-48.0 [facility] Comment on above: Performed By: #### C BC ####[facility] Caognwsmta[address] [place] [phone]. Keturah Fisher Hemoglobin (Bld) [Mass/Vol] 14.5 g/dL Normal 12.0-16.0 [facility] Comment on above: Performed By: #### C BC ####[facility] Sm[address] [place], [place] [address]DrGopal Fisher IG # 0.04 10e3/ul Critically high 0.00-0.03 [facility] Comment on above: Performed By: #### C BC ####[facility] Ebmiotnuba27[address] [place] [phone]. Keturah Fisher IG % 0.4 % Normal 0.0-0.5 [facility] Comment on above: Performed By: #### C BC ####[facility] Zvwqastbnj5[address] [place] [phone]. Keturah Fisher LYMPH # 2.8 103/ul Normal 1.2-3.8 [facility] Comment on above: Performed By: #### C BC ####[facility] Bmtyhinkqt70[address] [place] [phone]. Keturah Fisher Lymphocytes/100 WBC (Bld) 24.9 % Normal 20.5-60.0 [facility] Comment on above: Performed By: #### C BC ####[facility] Mppfanmuto[address] [place] [address]Dr. Keturah Fisher MANUAL DIFF REQ NO Normal [facility] Comment on above: Performed By: #### C BC ####[facility] Yngcaovshx8[address] [place] [phone]. Keturah Fisher MCH (RBC) [Entitic mass] 32.7 pg Normal 26.7-34.0 [facility] Comment on above: Performed By: #### C BC ####[facility] Odmzasaffj[address] [place] [phone]. Keturah Fisher MCHC (RBC) [Mass/Vol] 33.6 g/dL Normal 29.9-35.2 [facility] Comment on above: Performed By: #### C BC ####[facility] Mznyzqwnzf4[address] [place] [phone]. Keturah Fisher MCV (RBC) [Entitic vol] 97.5 fL Normal 81.0-99.0 [facility] Comment on above: Performed By: #### C BC ####[facility] Fxqbrjbupf[address] [place] [phone]. Keturah Phillip MONO # 0.9 103/ul Critically high 0.3-0.8 [facility] Comment on above: Performed By: #### C BC ####[facility] Egmgodmdii77[address] [place] [phone]. Keturah Fisher Monocytes/100 WBC (Bld) 8.1 % Normal 1.7-12.0 [facility] Comment on above: Performed By: #### C BC ####[facility] Pvvsicfaab86[address] [place] [phone]. Keturah Fisher NEUT # 7.3 103/ul Critically high 1.4-6.5 [facility] Comment on above: Performed By: #### C BC ####[facility] Nlcwtwnmcd8[address] [place] [phone]. Keturah Fisher Neutrophils/100 WBC (Bld) 65.0 % Normal 43.0-75.0 [facility] Comment on above: Performed By: #### C BC ####[facility] Wkgkbvxzdl[address] [place] [address]Dr. Keturah Fisher Platelet mean volume (Bld) [Entitic vol] 10.0 fL Normal 9.5-13.5 [facility] Comment on above: Performed By: #### C BC ####[facility] Axpbgdkdfj[address] [place] [address]Dr. Keturah Fisher PLT 245 103/ul Normal 150-450 [facility] Comment on above: Performed By: #### C BC ####[facility] Pfwmeemkbd5313 [place] [phone]. Keturah Fisher RBC 4.43 106/ul Normal 4.20-5.40 [facility] Comment on above: Performed By: #### C BC ####[facility] Uddgjizoii[address] [place], [place] [address]Dr. Keturah Fisher WBC 11.2 103/ul Critically high 4.0-11.0 [facility] Comment on above: Performed By: #### C BC ####[facility] Tjqsbyojnx[address] [place] [address]Dr. Keturah Fisher LIPASEon 07-31-2021 Lipase [Catalytic activity/Vol] 439.0 U/L Critically high 73.0-393.0 [facility] Comment on above: Performed By: #### L IPA, CMP, CRP, NAT #### [facility] Laboratory [address] [place] [address] Dr. Keturah Fisher PROF 14(COMP METB)on 022 Albumin [Mass/Vol] 3.6 g/dL Normal 3.4-5.0 [facility] Comment on above: Performed By: #### L IPA, CMP, CRP, NAT #### [facility] Laboratory [address] [place] [address] Dr. Keturah Fisher Albumin/Globulin [Mass ratio] 1.1 {ratio} Normal [facility] Comment on above: Performed By: #### L IPA, CMP, CRP, NAT #### [facility] Laboratory [address] [place] [address] Dr. Keturah Fisher ALP [Catalytic activity/Vol] 119 U/L Critically high 46-116 [facility] Comment on above: Performed By: #### L IPA, CMP, CRP, NAT #### [facility] Laboratory [address] [place] [address] Dr. Keturah Fisher ALT [Catalytic activity/Vol] 20 U/L Normal 14-59 [facility] Comment on above: Performed By: #### L IPA, CMP, CRP, NAT #### [facility] Laboratory [address] [place] [address] Dr. Keturah Fisher Anion gap [Moles/Vol] 13.4 mmol/L Normal [facility] Comment on above: Performed By: #### L IPA, CMP, CRP, NAT #### [facility] Laboratory [address] [place] [address] Dr. Keturah Fisher AST [Catalytic activity/Vol] 16 U/L Normal 15-37 [facility] Comment on above: Performed By: #### L IPA, CMP, CRP, NAT #### [facility] Laboratory [address] [place] [address] Dr. Keturah Fisher Bilirubin [Mass/Vol] 0.1 mg/dL Critically low 0.2-1.0 [facility] Comment on above: Performed By: #### L IPA, CMP, CRP, NAT #### [facility] Laboratory [address] [place] [address] [address] Keturah Fisher Calcium [Mass/Vol] 8.9 mg/dL Normal 8.5-10.1 [facility] Comment on above: Performed By: #### L IPA, CMP, CRP, NAT #### [facility] Laboratory [address] [place] [address] Dr. Keturah Fisher Chloride [Moles/Vol] 106 mmol/L Normal 98-107 [facility] Comment on above: Performed By: #### L IPA, CMP, CRP, NAT #### [facility] Laboratory [address] [place] [address] Dr. Keturah Fisher CO2 [Moles/Vol] 25.4 mmol/L Normal 21.0-32.0 [facility] Comment on above: Performed By: #### L IPA, CMP, CRP, NAT #### [facility] Laboratory [address] [place] [address] Dr. Keturah Fisher Creatinine [Mass/Vol] 0.73 mg/dL Normal 0.55-1.02 [facility] Comment on above: Performed By: #### L IPA, CMP, CRP, NAT #### [facility] Laboratory [address] [place] [address] Dr. Keturah Fisher EGFR-AF NICARAGUAN >60 Normal >=60 [facility] Comment on above: Performed By: #### L IPA, CMP, CRP, NAT #### [facility] Laboratory [address] [place] [address] Dr. Keturah Fisher EGFR-NON AF NICARAGUAN >60 Normal >=60 [facility] Comment on above: Performed By: #### L IPA, CMP, CRP, NAT #### [facility] Laboratory [address] [place] [address] Dr. Keturah Fisher Globulin (S) [Mass/Vol] 3.2 g/dL Normal [facility] Comment on above: Performed By: #### L IPA, CMP, CRP, NAT #### [facility] Laboratory [address] [place] [address] Dr. Keturah Fisher Glucose [Mass/Vol] 105 mg/dL Normal 74-106 [facility] Comment on above: Performed By: #### L IPA, CMP, CRP, NAT #### [facility] Laboratory [address] [place] [address] Dr. Keturah Fisher Potassium [Moles/Vol] 3.8 mmol/L Normal 3.5-5.1 [facility] Comment on above: Performed By: #### L IPA, CMP, CRP, NAT #### [facility] Laboratory [address] [place] [address] Dr. Keturah Fisher Protein [Mass/Vol] 6.8 g/dL Normal 6.4-8.2 [facility] Comment on above: Performed By: #### L IPA, CMP, CRP, NAT #### [facility] Laboratory [address] [place] [address] Dr. Keturah Fisher Sodium [Moles/Vol] 141 mmol/L Normal 136-145 [facility] Comment on above: Performed By: #### L IPA, CMP, CRP, NAT #### [facility] Laboratory [address] [place] [address] Dr. Keturah Fisher Urea nitrogen [Mass/Vol] 12.0 mg/dL Normal 7.0-18.0 [facility] Comment on above: Performed By: #### L IPA, CMP, CRP, NAT #### [facility] Laboratory [address] [place] [address] Dr. Keturah Fisher Urea nitrogen/Creatinine [Mass ratio] 16.4 mg/mg Normal [facility] Comment on above: Performed By: #### L IPA, CMP, CRP, NAT #### [facility] Laboratory [address] [place] [address] Dr. Keturah Fisher TROPONIN, HIGH SENSITIVITYon 07-31-2021 HSTROP 4.2 pg/mL Normal 4.0-51.3 [facility] Comment on above: Result Comment: CUT- OFF POINTS HAVE BEEN ESTABLISHED BASED ON THE FOURTH UNIVERSAL DEFINITIONS OF MYOCARDIAL INFARCTION. THE UPPER REFERENCE LIMIT (URL) OF TROPONIN, DEFINED THE 99TH PERCENTILE OF cTnI DISTRIBUTION IN A REFERENCE POPULATION, HAS BEEN CONFIRMED THE DECISION THRESHOLD FOR VA DIAGNOSIS. Performed By: #### L IPA, CMP, CRP, NAT #### [facility] Laboratory [address] [place] [address] Dr. Keturah Fisher AMYLASEon 07-19-2021 Amylase [Catalytic activity/Vol] 198 U/L Critically high 25-115 [facility] Comment on above: Performed By: #### A MY, LIPA, CMP ####[facility] [address]hsvdu[address] [place] [address]Dr. Keturah Fisher CBC AUTO DIFFon 07-19-2021 BASO # 0.1 103/ul Normal 0.0-0.1 [facility] Comment on above: Performed By: #### C BC ####[facility] [address]zrqcyosv[address] [place], [place] [address]Dr. Keturah Fisher Basophils/100 WBC (Bld) 0.7 % Normal 0.2-2.0 [facility] Comment on above: Performed By: #### C BC ####[facility] Xpr[address]ffs[address] [place], [place] [address]DrGopal Fisher EO # 0.1 103/ul Normal 0.0-0.7 [facility] Comment on above: Performed By: #### C BC ####[facility] Dyswrsvcpv[address] [place], [place] [address]Dr. Keturah Fisher Eosinophils/100 WBC (Bld) 1.0 % Normal 0.9-7.0 [facility] Comment on above: Performed By: #### C BC ####[facility] Insfbqgzrt[address] [place], [place] [address]DrGopal Fisher Erythrocyte distribution width (RBC) [Ratio] 12.5 % Normal 11.0-15.0 [facility] Comment on above: Performed By: #### C BC ####[facility] Angilctmxj[address] [place], [place] [address]DrGopal Fisher Hematocrit (Bld) [Volume fraction] 42.4 % Normal 36.0-48.0 [facility] Comment on above: Performed By: #### C BC ####[facility] Xuedutxgzy[address] [place], [place] [address]DrGopal Fisher Hemoglobin (Bld) [Mass/Vol] 14.2 g/dL Normal 12.0-16.0 [facility] Comment on above: Performed By: #### C BC ####[facility] Znwbajgcql7[address] [place] [phone]. Keturah Fisher IG # 0.03 10e3/ul Normal 0.00-0.03 [facility] Comment on above: Performed By: #### C BC ####[facility] Usnmradbne5[address] [place] [phone]. Keturah Fisher IG % 0.3 % Normal 0.0-0.5 [facility] Comment on above: Performed By: #### C BC ####[facility] Kijphjskfa[address] [place] [phone]. Keturah Fisher LYMPH # 3.0 103/ul Normal 1.2-3.8 [facility] Comment on above: Performed By: #### C BC ####[facility] Gopfuckbza[address] [place] [address]Dr. eKturah Fisher Lymphocytes/100 WBC (Bld) 29.5 % Normal 20.5-60.0 [facility] Comment on above: Performed By: #### C BC ####[facility] Lvtunjhjpv79[address] [place] [phone]. Keturah Fisher MANUAL DIFF REQ NO Normal [facility] Comment on above: Performed By: #### C BC ####[facility] Xresjvefrk79[address] [place] [phone]. Keturah Fisher MCH (RBC) [Entitic mass] 32.8 pg Normal 26.7-34.0 [facility] Comment on above: Performed By: #### C BC ####[facility] Upagedeyse[address] [place], [place] [address]Dr. Keturah Fisher MCHC (RBC) [Mass/Vol] 33.5 g/dL Normal 29.9-35.2 [facility] Comment on above: Performed By: #### C BC ####[facility] Zehnjczyst[address] [place] [phone]. Keturah Fisher MCV (RBC) [Entitic vol] 97.9 fL Normal 81.0-99.0 [facility] Comment on above: Performed By: #### C BC ####[facility] Bssaizotxo[address] [place] [phone]. Keturah Fisher MONO # 1.0 103/ul Critically high 0.3-0.8 [facility] Comment on above: Performed By: #### C BC ####[facility] Cecvsmvpmb2184 [place] [phone]. Keturah Fisher Monocytes/100 WBC (Bld) 9.3 % Normal 1.7-12.0 [facility] Comment on above: Performed By: #### C BC ####[facility] Yaooycvwnk[address] [place] [phone]. Keturah Fisher NEUT # 6.1 103/ul Normal 1.4-6.5 [facility] Comment on above: Performed By: #### C BC ####[facility] Bsesimifqd[address] [place], [place] [address]Dr. Keturah Fisher Neutrophils/100 WBC (Bld) 59.2 % Normal 43.0-75.0 [facility] Comment on above: Performed By: #### C BC ####[facility] Tfpvztaors[address] [place] [address]Dr. Keturah Fisher Platelet mean volume (Bld) [Entitic vol] 9.8 fL Normal 9.5-13.5 [facility] Comment on above: Performed By: #### C BC ####[facility] [address]ufzlbamn[address] [place] [address]Dr. Keturah Fisher PLT 249 103/ul Normal 150-450 [facility] Comment on above: Performed By: #### C BC ####[facility] Wobukoqlsx[address] [place], [place] [address]Dr. Keturah Fisher RBC 4.33 106/ul Normal 4.20-5.40 [facility] Comment on above: Performed By: #### C BC ####[facility] Smuptceflh[address] [place] [address]Dr. Keturah Fisher WBC 10.2 103/ul Normal 4.0-11.0 [facility] Comment on above: Performed By: #### C BC ####[facility] Jvfmfwrxkf[address] [place] [address]Dr. Keturah Fisher LIPASEon 07-19-2021 Lipase [Catalytic activity/Vol] 554.0 U/L Critically high 73.0-393.0 [facility] Comment on above: Performed By: #### A MY, LIPA, CMP ####[facility] Nvvmhfsinu[address] [place] [address]Dr. Keturah Fisher PROF 14(COMP METB)on 022 Albumin [Mass/Vol] 4.0 g/dL Normal 3.4-5.0 [facility] Comment on above: Performed By: #### A MY, LIPA, CMP ####[facility] Gzcusdcmcv[address] [place], [place] [address]Dr. Keturah Fisher Albumin/Globulin [Mass ratio] 1.1 {ratio} Normal [facility] Comment on above: Performed By: #### A MY, LIPA, CMP ####[facility] Ydjevqkeee[address] [place], [place] [address]Dr. Keturah Fisher ALP [Catalytic activity/Vol] 141 U/L Critically high 46-116 [facility] Comment on above: Performed By: #### A MY, LIPA, CMP ####[facility] Blcsvpvucv[address] [place], [place] [address]Dr. Keturah Fisher ALT [Catalytic activity/Vol] 21 U/L Normal 14-59 [facility] Comment on above: Performed By: #### A MY, LIPA, CMP ####[facility] Zikhjxfxni[address] [place] [address]Dr. Keturah Fisher Anion gap [Moles/Vol] 10.3 mmol/L Normal [facility] Comment on above: Performed By: #### A MY, LIPA, CMP ####[facility] Ftttuzezlp[address]86 [place] [address]Dr. Keturah Fisher AST [Catalytic activity/Vol] 22 U/L Normal 15-37 [facility] Comment on above: Performed By: #### A MY, LIPA, CMP ####[facility] Qhbjyxijzm[address] [place] [address]Dr. Keturah Fisher Bilirubin [Mass/Vol] 0.3 mg/dL Normal 0.2-1.0 [facility] Comment on above: Performed By: #### A ROB BERNSTEIN, CMP ####[facility] Yfjqtmucsi[address] [place] [address]Dr. Keturah Fisher Calcium [Mass/Vol] 9.9 mg/dL Normal 8.5-10.1 [facility] Comment on above: Performed By: #### A ROB BERNSTEIN, CMP ####[facility] Csosrflkzo17[address] [place] [phone]. Keturah Fisher Chloride [Moles/Vol] 103 mmol/L Normal 98-107 [facility] Comment on above: Performed By: #### A ROB BERNSTEIN, CMP ####[facility] Kxixgemfxw[address] [place], [place] [address]Dr. Keturah Fisher CO2 [Moles/Vol] 27.6 mmol/L Normal 21.0-32.0 [facility] Comment on above: Performed By: #### A ROB BERNSTEIN, CMP ####[facility] Ltzfrhgcxz[address] [place] [address]Dr. Keturah Fisher Creatinine [Mass/Vol] 0.93 mg/dL Normal 0.55-1.02 [facility] Comment on above: Performed By: #### A ROB BERNSTEIN, CMP ####[facility] Doepncsyfm[address] [place], [place] [address]Dr. Keturah Fisher EGFR-AF NICARAGUAN >60 Normal >=60 [facility] Comment on above: Performed By: #### A AMANDEEP LIPA, CMP ####[facility] [address]auqltuori[address] [place] [id number]. Keturah Fisher EGFR-NON AF NICARAGUAN >60 Normal >=60 The [facility] Comment on above: Performed By: #### A ROB BERNSTEIN, CMP ####[facility] Rwh[address]oardx[address] [place], [place] [address]Dr. Keturah Fisher Globulin (S) [Mass/Vol] 3.5 g/dL Normal The [facility] [place] Comment on above: Performed By: #### A MY, LIPA, CMP ####[facility] [place] [id number] [address]Dr. Keturah Fisher Glucose [Mass/Vol] 99 mg/dL Normal 74-106 The [facility] Comment on above: Performed By: #### A MY LIPA, CMP ####[facility] [place] [id number] [address]Dr. Keturah Fisher Potassium [Moles/Vol] 3.9 mmol/L Normal 3.5-5.1 [facility] [place] Comment on above: Performed By: #### A MY LIPA, CMP ####[facility] [place] [id number] [address]Dr. Keturah Fisher Protein [Mass/Vol] 7.5 g/dL Normal 6.4-8.2 The [facility] Comment on above: Performed By: #### A AMANDEEP LIPA, CMP ####[facility] [place] [id number] [address]Dr. Keturah Fisher Sodium [Moles/Vol] 137 mmol/L Normal 136-145 [facility] Comment on above: Performed By: #### A AMANDEEP LIPA, CMP ####[facility] [place] [id number] [address]Dr. Keturah Fisher Urea nitrogen [Mass/Vol] 9.0 mg/dL Normal 7.0-18.0 [facility] [place] Comment on above: Performed By: #### A AMANDEEP LIPA, CMP ####[facility] [place] [id number] [place], [place] [address]Dr. Keturah Fisher Urea nitrogen/Creatinine [Mass ratio] 9.7 mg/mg Normal [facility] [place] Comment on above: Performed By: #### A AMANDEEP LIPA, CMP ####[facility] [place] [id number] [place], [place] [address]Dr. Keturah Fisher XR ABD FLAT UP_PA Jorje [...] LYNNE PERDOMO Date: 2021-07-19 16:[address] [facility] COVID Quick Testingon 2021 Result Positive CallApp Other ANES Marcial 11-13-2020 ANES POST HNO ID: [id number] Author: Ion Avila MD Service: Anesthesiology Author [...] 13, 2020 TIME: 12:38 PM PAGER/CONTACT #: [phone] Normal [facility] NURSING PROGon 11-13-2020 NURSING PROG HNO ID: [id number] Author: Viky Nguyen RN Service: Nursing Author [...] None Electronically Signed By: Yaquelin Nguyen RN [facility] NURSING PROG HNO ID: [id number] Author: Landy Smith RN Service: Nursing Author [...] By: Landy Smith RN In Department: [facility] ([facility] ----- CHIOMA RAINEY ([id number]) 1970 F Date Time Provider Department 11/07/20 [...] have family/friend present for procedure? 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 Any barriers to Patient learning: Patient/Patient Crt responded appropriately on phone. Type of instruction [...] Status:Closed by NASREEN GORMAN on 11/07/20 Normal [facility] Amylaseon 03-26-2020 Amylase [Catalytic activity/Vol] 185 U/L High 28 - 100 U/L [place] CBC Auto Differentialon 03-09 Basophils (Bld) [#/Vol] 0.06 10*3/uL [place] Basophils/100 WBC (Bld) 1 % 0 - 2 % [place] Differential Type NOT REPORTED [place] Eosinophils (Bld) [#/Vol] 0.12 10*3/uL [place] Eosinophils/100 WBC (Bld) 1 % 1 - 4 % [place] Erythrocyte distribution width (RBC) [Ratio] 12.4 % 11.8 - 14.4 % [place] Hematocrit (Bld) [Volume fraction] 40.6 % 36.3 - 47.1 % [place] Hemoglobin (Bld) [Mass/Vol] 13.7 g/dL 11.9 - 15.1 g/dL [place] Immature granulocytes (Bld) [#/Vol] 0 % 0 [place] Immature granulocytes (Bld) [#/Vol] 10*3/uL [place] Lymphocytes (Bld) [#/Vol] 2.62 10*3/uL [place] Lymphocytes/100 WBC (Bld) 27 % 24 - 43 % [place] MCH (RBC) [Entitic mass] 33.4 pg 25.2 - 33.5 pg [place] MCHC (RBC) [Mass/Vol] 33.7 g/dL 28.4 - 34.8 g/dL [place] MCV (RBC) [Entitic vol] 99.0 fL 82.6 - 102.9 fL [place] Monocytes (Bld) [#/Vol] 0.78 10*3/uL [place] Monocytes/100 WBC (Bld) 8 % 3 - 12 % [place] Platelet mean volume (Bld) [Entitic vol] 9.4 fL 8.1 - 13.5 fL [place] Platelets (Bld) [#/Vol] 235 10*3/uL [place] Platelets (Bld) [#/Vol] NOT REPORTED [place] RBC (Bld) [#/Vol] 4.10 10*6/uL 3.95 - 5.11 m/uL [place] RBC morphology finding Nom (Bld) NOT REPORTED [place] Segmented neutrophils/100 WBC (Bld) 63 % 36 - 65 % [place] Segs Absolute 5.96 [place] WBC (Bld) [#/Vol] 9.6 10*3/uL [place] WBC (Bld) [#/Vol] 0.0 10*3/uL 0.0 per 100 WBC [place] WBC Morphology NOT REPORTED [place] Comprehensive Metabolic Pane l w/ Reflex to MGon 03-26-2020 Albumin [Mass/Vol] 4.3 g/dL 3.5 - 5.2 g/dL [place] Albumin/Globulin [Mass ratio] 1.7 {ratio} [place] ALP [Catalytic activity/Vol] 117 U/L High 35 - 104 U/L [place] ALT [Catalytic activity/Vol] 11 U/L 5 - 33 U/L [place] Anion gap [Moles/Vol] 9 mmol/L 9 - 17 mmol/L [place] AST [Catalytic activity/Vol] 18 U/L <32 [place] Bilirubin Ql (U) 0.15 mg/dL Low 0.3 - 1.2 mg/dL [place] Bun/Cre Ratio 12 [place] Calcium [Mass/Vol] 9.7 mg/dL 8.6 - 10. 4 mg/dL [place] Chloride [Moles/Vol] 102 mmol/L 98 - 10 7 mmol/L [place] CO2 [Moles/Vol] 25 mmol/L 20 - 31 mmol/L [place] Creatinine [Mass/Vol] 0.74 mg/dL 0.5 - 0.9 mg/dL [place] GFR >60 >60 mL/min [place] GFR Non- >60 >60 mL/min [place] Glucose [Mass/Vol] 94 mg/dL 70 - 99 mg/dL [place] Potassium [Moles/Vol] 4.2 mmol/L 3.7 - 5.3 mmol/L [place] Protein [Mass/Vol] 6.8 g/dL 6.4 - 8.3 g/dL [place] Sodium [Moles/Vol] 136 mmol/L 135 - 144 mmol/L [place] Urea nitrogen [Mass/Vol] 9 mg/dL 6 - 20 mg/dL [place] Lactic Acidon 03-26-2020 Lactate [Moles/Vol] 1.3 mmol/L 0.5 - 2. 2 mmol/L [place] Lipaseon 03-26-2020 Interpretation and review of laboratory results Abnormal [place] Lipase [Catalytic activity/Vol] 225 U/L Critically high 13 - 60 U/L [place] Metabolic Panelon 03-26-2020 GFR/1.73 sq M predicted among non-blacks MDRD (S/P/Bld) [Vol rate/Area] [place] Comment on above: Average GFR for 50-5 9 years old: 93 mL/min/1.73sq m Chronic Kidney Disease: <60 mL/min/1.73sq m Kidney failure: <15 mL/min/1.73sq m eGFR calculated using average adult body mass. Additional eGFR calculator available at: http://www.Navut/multiple_crcl_2012.htm Stage 1: Some kidney damage normal GFR Stage 2: Mild kidney damage GFR 60-89 Stage 3: Moderate kidney damage GFR 30-59 Stage 4: Severe kidney damage GFR 15-29 Stage 5: Severe kidney damage GFR <15 ESRD - chronic treatment by dialysis or transplant Otheron 03-26-2020 Interpretation and review of laboratory results Abnormal [place] SPECIMEN REJECTIONon 021 Ordered Test CDP [place] Reason for Rejection Unable to perform testing: Specimen clotted. [place] Specimen source Nom (Unsp spec) .BLOOD [place] - NOT REPORTED [place] Urinalysis, reflex to micros copicon 03-26-2020 Bilirubin Urine Negative NEGATIVE [facility] [place] Color, UA YELLOW YELLOW [place] Glucose, Ur Negative NEGATIVE [place] Ketones Ql (U) Negative NEGATIVE [place] Leukocyte esterase Test strip Ql (U) Negative NEGATIVE [place] Nitrite, Urine Negative NEGATIVE [place] pH, UA 5.5 [place] Protein (U) [Mass/Vol] Negative NEGATIVE [place] Specific [place], UA 1.010 [place] Turbidity UA CLEAR CLEAR [place] Urinalysis Comments NOT REPORTED [place] Urine Hgb Negative NEGATIVE [place] Urobilinogen, Urine Normal Normal [place] CBC auto differentialon 08-07 Basophils (Bld) [#/Vol] 0.04 10*3/uL [place] Basophils/100 WBC (Bld) 1 % 0 - 2 % [place] Differential Type NOT REPORTED [place] Eosinophils (Bld) [#/Vol] 0.10 10*3/uL [place] Eosinophils/100 WBC (Bld) 1 % 1 - 4 % [place] Erythrocyte distribution width (RBC) [Ratio] 13.0 % 11.8 - 14.4 % [place] Hematocrit (Bld) [Volume fraction] 35.2 % Low 36.3 - 47.1 % [place] Hemoglobin (Bld) [Mass/Vol] 11.7 g/dL Low 11.9 - 15.1 g/dL [place] Immature granulocytes (Bld) [#/Vol] 10*3/uL [place] Immature granulocytes (Bld) [#/Vol] 0 % 0 [place] Interpretation and review of laboratory results Abnormal [place] Lymphocytes (Bld) [#/Vol] 1.87 10*3/uL [place] Lymphocytes/100 WBC (Bld) 22 % Low 24 - 43 % [place] MCH (RBC) [Entitic mass] 32.5 pg 25.2 - 33.5 pg [place] MCHC (RBC) [Mass/Vol] 33.2 g/dL 28.4 - 34.8 g/dL [place] MCV (RBC) [Entitic vol] 97.8 fL 82.6 - 102.9 fL [place] Monocytes (Bld) [#/Vol] 0.86 10*3/uL [place] Monocytes/100 WBC (Bld) 10 % 3 - 12 % [place] Platelet mean volume (Bld) [Entitic vol] 9.8 fL 8.1 - 13.5 fL [place] Platelets (Bld) [#/Vol] NOT REPORTED [place] Platelets (Bld) [#/Vol] 178 10*3/uL [place] RBC (Bld) [#/Vol] 3.60 10*6/uL Low 3.95 - 5.11 m/uL [place] RBC morphology finding Nom (Bld) NOT REPORTED [place] Segmented neutrophils/100 WBC (Bld) 66 % High 36 - 65 % [place] Segs Absolute 5.53 [place] WBC (Bld) [#/Vol] 0.0 10*3/uL 0.0 per 100 WBC [place] WBC (Bld) [#/Vol] 8.4 10*3/uL [place] WBC Morphology NOT REPORTED [place] Lipaseon 08-25-2019 Lipase [Catalytic activity/Vol] 42 U/L 13 - 60 U/L [place] CBC auto differentialon 08-07 Basophils (Bld) [#/Vol] 0.04 10*3/uL [place] Basophils/100 WBC (Bld) 1 % 0 - 2 % [place] Differential Type NOT REPORTED [place] Eosinophils (Bld) [#/Vol] 0.08 10*3/uL [place] Eosinophils/100 WBC (Bld) 1 % 1 - 4 % [place] Erythrocyte distribution width (RBC) [Ratio] 12.9 % 11.8 - 14.4 % [place] Hematocrit (Bld) [Volume fraction] 35.9 % Low 36.3 - 47.1 % [place] Hemoglobin (Bld) [Mass/Vol] 11.9 g/dL 11.9 - 15.1 g/dL [place] Immature granulocytes (Bld) [#/Vol] 0 % 0 [place] Immature granulocytes (Bld) [#/Vol] 0.03 10*3/uL [place] Interpretation and review of laboratory results Abnormal [place] Lymphocytes (Bld) [#/Vol] 1.79 10*3/uL [place] Lymphocytes/100 WBC (Bld) 22 % Low 24 - 43 % [place] MCH (RBC) [Entitic mass] 32.3 pg 25.2 - 33.5 pg [place] MCHC (RBC) [Mass/Vol] 33.1 g/dL 28.4 - 34.8 g/dL [place] MCV (RBC) [Entitic vol] 97.6 fL 82.6 - 102.9 fL [place] Monocytes (Bld) [#/Vol] 0.75 10*3/uL [place] Monocytes/100 WBC (Bld) 9 % 3 - 12 % [place] Platelet mean volume (Bld) [Entitic vol] 10.1 fL 8.1 - 13.5 fL [place] Platelets (Bld) [#/Vol] 176 10*3/uL [place] Platelets (Bld) [#/Vol] NOT REPORTED [place] RBC (Bld) [#/Vol] 3.68 10*6/uL Low 3.95 - 5.11 m/uL [place] RBC morphology finding Nom (Bld) NOT REPORTED [place] Segmented neutrophils/100 WBC (Bld) 67 % High 36 - 65 % [place] Segs Absolute 5.61 [place] WBC (Bld) [#/Vol] 0.0 10*3/uL 0.0 per 100 WBC [place] WBC (Bld) [#/Vol] 8.3 10*3/uL [place] WBC Morphology NOT REPORTED [place] Lipaseon 08-24-2019 Interpretation and review of laboratory results Abnormal [place] Lipase [Catalytic activity/Vol] 69 U/L High 13 - 60 U/L [place] CBC auto differentialon 08-07 Basophils (Bld) [#/Vol] 0.05 10*3/uL [place] Basophils/100 WBC (Bld) 1 % 0 - 2 % [place] Differential Type NOT REPORTED [place] Eosinophils (Bld) [#/Vol] 0.13 10*3/uL [place] Eosinophils/100 WBC (Bld) 2 % 1 - 4 % [place] Erythrocyte distribution width (RBC) [Ratio] 13.2 % 11.8 - 14.4 % [place] Hematocrit (Bld) [Volume fraction] 36.7 % 36.3 - 47.1 % [place] Hemoglobin (Bld) [Mass/Vol] 11.8 g/dL Low 11.9 - 15.1 g/dL [place] Immature granulocytes (Bld) [#/Vol] 0 % 0 [place] Immature granulocytes (Bld) [#/Vol] 10*3/uL [place] Interpretation and review of laboratory results Abnormal [place] Lymphocytes (Bld) [#/Vol] 2.39 10*3/uL [place] Lymphocytes/100 WBC (Bld) 28 % 24 - 43 % [place] MCH (RBC) [Entitic mass] 32.1 pg 25.2 - 33.5 pg [place] MCHC (RBC) [Mass/Vol] 32.2 g/dL 28.4 - 34.8 g/dL [place] MCV (RBC) [Entitic vol] 99.7 fL 82.6 - 102.9 fL [place] Monocytes (Bld) [#/Vol] 0.77 10*3/uL [place] Monocytes/100 WBC (Bld) 9 % 3 - 12 % [place] Platelet mean volume (Bld) [Entitic vol] 10.1 fL 8.1 - 13.5 fL [place] Platelets (Bld) [#/Vol] 174 10*3/uL [place] Platelets (Bld) [#/Vol] NOT REPORTED [place] RBC (Bld) [#/Vol] 3.68 10*6/uL Low 3.95 - 5.11 m/uL [place] RBC morphology finding Nom (Bld) NOT REPORTED [place] Segmented neutrophils/100 WBC (Bld) 60 % 36 - 65 % [place] Segs Absolute 5.22 [place] WBC (Bld) [#/Vol] 0.0 10*3/uL 0.0 per 100 WBC [place] WBC (Bld) [#/Vol] 8.6 10*3/uL [place] WBC Morphology NOT REPORTED [place] Comprehensive metabolic pane nimesh 08-23-2019 Albumin [Mass/Vol] 3.4 g/dL Low 3.5 - 5.2 g/dL [place] Albumin/Globulin [Mass ratio] 1.7 {ratio} [place] ALP [Catalytic activity/Vol] 102 U/L 35 - 104 U/L [place] ALT [Catalytic activity/Vol] 34 U/L High 5 - 33 U/L [place] Anion gap [Moles/Vol] 7 mmol/L Low 9 - 17 mmol/L [place] AST [Catalytic activity/Vol] 95 U/L High <32 [place] Bilirubin Ql (U) 0.46 mg/dL 0.3 - 1.2 mg/dL [place] Bun/Cre Ratio 11 [place] Calcium [Mass/Vol] 8.4 mg/dL Low 8.6 - 10. 4 mg/dL [place] Chloride [Moles/Vol] 109 mmol/L High 98 - 10 7 mmol/L [place] CO2 [Moles/Vol] 22 mmol/L 20 - 31 mmol/L [place] Creatinine [Mass/Vol] 0.66 mg/dL 0.5 - 0.9 mg/dL [place] GFR >60 >60 mL/min [place] GFR Non- >60 >60 mL/min [place] Glucose [Mass/Vol] 89 mg/dL 70 - 99 mg/dL [place] Potassium [Moles/Vol] 4.3 mmol/L 3.7 - 5.3 mmol/L [place] Protein [Mass/Vol] 5.4 g/dL Low 6.4 - 8.3 g/dL [place] Sodium [Moles/Vol] 138 mmol/L 135 - 144 mmol/L [place] Urea nitrogen [Mass/Vol] 7 mg/dL 6 - 20 mg/dL [place] Lipaseon 08-23-2019 Lipase [Catalytic activity/Vol] 96 U/L High 13 - 60 U/L [place] Metabolic Panelon 08-23-2019 GFR/1.73 sq M predicted among non-blacks MDRD (S/P/Bld) [Vol rate/Area] [place] Comment on above: Stage 1: Some [...] body mass. Additional eGFR calculator available at: http://www.Navut/multiple_crcl_2012.htm Otheron 08-23-2019 Interpretation and review of laboratory results Abnormal [place] CBC Auto Differentialon 08-07 Basophils (Bld) [#/Vol] 0.06 10*3/uL [place] Basophils/100 WBC (Bld) 1 % 0 - 2 % [place] Differential Type NOT REPORTED [place] Eosinophils (Bld) [#/Vol] 0.11 10*3/uL [place] Eosinophils/100 WBC (Bld) 1 % 1 - 4 % [place] Erythrocyte distribution width (RBC) [Ratio] 13.2 % 11.8 - 14.4 % [place] Hematocrit (Bld) [Volume fraction] 41.8 % 36.3 - 47.1 % [place] Hemoglobin (Bld) [Mass/Vol] 13.7 g/dL 11.9 - 15.1 g/dL [place] Immature granulocytes (Bld) [#/Vol] 0.03 10*3/uL [place] Immature granulocytes (Bld) [#/Vol] 0 % 0 [place] Interpretation and review of laboratory results Abnormal [place] Lymphocytes (Bld) [#/Vol] 2.23 10*3/uL [place] Lymphocytes/100 WBC (Bld) 24 % 24 - 43 % [place] MCH (RBC) [Entitic mass] 32.6 pg 25.2 - 33.5 pg [place] MCHC (RBC) [Mass/Vol] 32.8 g/dL 28.4 - 34.8 g/dL [place] MCV (RBC) [Entitic vol] 99.5 fL 82.6 - 102.9 fL [place] Monocytes (Bld) [#/Vol] 0.72 10*3/uL [place], [place] Monocytes/100 WBC (Bld) 8 % 3 - 12 % [place] Platelet mean volume (Bld) [Entitic vol] 10.0 fL 8.1 - 13.5 fL [place] Platelets (Bld) [#/Vol] NOT REPORTED [place] Platelets (Bld) [#/Vol] 213 10*3/uL [place] RBC (Bld) [#/Vol] 4.20 10*6/uL 3.95 - 5.11 m/uL [place] RBC morphology finding Nom (Bld) NOT REPORTED [place] Segmented neutrophils/100 WBC (Bld) 66 % High 36 - 65 % [place] Segs Absolute 6.22 [place] WBC (Bld) [#/Vol] 0.0 10*3/uL 0.0 per 100 WBC [place] WBC (Bld) [#/Vol] 9.4 10*3/uL [place] WBC Morphology NOT REPORTED [place] Comprehensive Metabolic Pane nimesh 08-22-2019 Albumin [Mass/Vol] 4.1 g/dL 3.5 - 5.2 g/dL [place] Albumin/Globulin [Mass ratio] 1.6 {ratio} [place] ALP [Catalytic activity/Vol] 109 U/L High 35 - 104 U/L [place] ALT [Catalytic activity/Vol] 13 U/L 5 - 33 U/L [place] Anion gap [Moles/Vol] 9 mmol/L 9 - 17 mmol/L [place] AST [Catalytic activity/Vol] 22 U/L <32 [place], [place] Bilirubin Ql (U) <0.10 Low 0.3 - 1.2 mg/dL [place] Bun/Cre Ratio 13 [place] Calcium [Mass/Vol] 9.2 mg/dL 8.6 - 10. 4 mg/dL [place] Chloride [Moles/Vol] 103 mmol/L 98 - 10 7 mmol/L [place] CO2 [Moles/Vol] 24 mmol/L 20 - 31 mmol/L [place] Creatinine [Mass/Vol] 0.63 mg/dL 0.5 - 0.9 mg/dL [place] GFR >60 >60 mL/min [place] GFR Non- >60 >60 mL/min [place] Glucose [Mass/Vol] 92 mg/dL 70 - 99 mg/dL [place] Interpretation and review of laboratory results Abnormal [place] Potassium [Moles/Vol] 3.8 mmol/L 3.7 - 5.3 mmol/L [place] Protein [Mass/Vol] 6.7 g/dL 6.4 - 8.3 g/dL [place] Sodium [Moles/Vol] 136 mmol/L 135 - 144 mmol/L [place] Urea nitrogen [Mass/Vol] 8 mg/dL 6 - 20 mg/dL [place] Lactic Acid, Plasmaon 2019 Lactate [Moles/Vol] 1.5 mmol/L 0.5 - 2. 2 mmol/L [place] Lactic Acid, Whole Blood NOT REPORTED 0.7 - 2.1 mmol/L [place] Lipaseon 08-22-2019 Interpretation and review of laboratory results Abnormal [place] Lipase [Catalytic activity/Vol] 255 U/L Critically high 13 - 60 U/L [place] Metabolic Panelon 08-22-2019 GFR/1.73 sq M predicted among non-blacks MDRD (S/P/Bld) [Vol rate/Area] [place] Comment on above: Average GFR for 50-5 9 years old: 93 mL/min/1.73sq m Chronic Kidney Disease: <60 mL/min/1.73sq m Kidney failure: <15 mL/min/1.73sq m eGFR calculated using average adult body mass. Additional eGFR calculator available at: http://www.[employer]ress.Ocision/multiple_crcl_2012.htm Stage 1: Some kidney damage normal GFR Stage 2: Mild kidney damage GFR 60-89 Stage 3: Moderate kidney damage GFR 30-59 Stage 4: Severe kidney damage GFR 15-29 Stage 5: Severe kidney damage GFR <15 ESRD - chronic treatment by dialysis or transplant Urinalysis with Microscopico n 08-22-2019 Amorphous, UA NOT REPORTED None [facility], [place] Bacteria, UA NOT REPORTED None [place] Bilirubin Urine Negative NEGATIVE [facility], [place] Casts UA NOT REPORTED /LPF [place] Color, UA YELLOW YELLOW [place] Crystals, UA NOT REPORTED None /HPF [place] Epithelial Cells UA 2 TO 5 [place] Glucose, Ur Negative NEGATIVE [place] Interpretation and review of laboratory results Abnormal [place] Ketones Ql (U) Negative NEGATIVE [place] Leukocyte esterase Test strip Ql (U) Negative NEGATIVE [place] Mucus, UA NOT REPORTED None [place] Nitrite, Urine Negative NEGATIVE [place] Other Observations UA NOT REPORTED NOT REQ. M [place] pH, UA 6.0 [place] Protein (U) [Mass/Vol] Negative NEGATIVE [place] RBC (U) [#/Vol] None [place] Renal Epithelial, UA NOT REPORTED 0 /HPF [place] Specific [place], UA <1.005 Low [place] Trichomonas, UA NOT REPORTED None [facility] [place] Turbidity UA CLEAR CLEAR [place] Urinalysis Comments NOT REPORTED [place] Urine Hgb Negative NEGATIVE [place] Urobilinogen, Urine Normal Normal [place] WBC, UA None [place] Yeast, UA NOT REPORTED None [place] - [place] CBC WITH AUTO DIFFERENTIALon 03-04-2018 Basophils Auto #/vol (Bld) 0.07 10*3/uL Invalid Interpretation Code [facility] Basophils/100 WBC Auto (Bld) 0.7 % Invalid Interpretation Code [facility] Eosinophils Auto #/vol (Bld) 0.09 10*3/uL Invalid Interpretation Code [facility] Eosinophils/100 WBC Auto (Bld) 0.9 % Invalid Interpretation Code [facility] Erythrocyte distribution width Auto Entitic volume (RBC) 12.8 % Invalid Interpretation Code 11.6 - 14.8 % [facility] Hematocrit Auto Volume Fraction (Bld) 45.0 % Invalid Interpretation Code 36 - 46 % [facility] Hemoglobin mass conc (Bld) 15.4 g/dL Invalid Interpretation Code 12 - 16 g/dL [facility] Immature granulocytes #/vol (Bld) 0.03 10*3/uL Invalid Interpretation Code [facility] Immature granulocytes/100 WBC (Bld) 0.30 % Invalid Interpretation Code [facility] Comment on above: The IG parameter is the percentage of metamyelocytes, myelocytes, and promyelocytes. Interpretation and review of laboratory results Abnormal Invalid Interpretation Code [facility] Lymphocytes Auto #/vol (Bld) 2.22 10*3/uL Invalid Interpretation Code [facility] Lymphocytes/100 WBC Auto (Bld) 21.0 % Invalid Interpretation Code [facility] MCH Auto Entitic mass (RBC) 33.6 pg Invalid Interpretation Code 26 - 34 pg [facility] MCHC Auto mass conc (RBC) 34.2 g/dL Invalid Interpretation Code 31 - 37 g/dL [facility] MCV Auto Entitic volume (RBC) 98.0 fL Invalid Interpretation Code 80 - 100 fL [facility] Monocytes Auto #/vol (Bld) 0.82 10*3/uL Invalid Interpretation Code [facility] Monocytes/100 WBC Auto (Bld) 7.8 % Invalid Interpretation Code [facility] Neutrophils Auto #/vol (Bld) 7.33 10*3/uL High [facility] Neutrophils/100 WBC Auto (Bld) 69.3 % Invalid Interpretation Code [facility] Nucleated RBC #/vol (Bld) 0.00 10*3/uL Invalid Interpretation Code [facility] Nucleated RBC/100 WBC Ratio (Bld) 0.0 % Invalid Interpretation Code [facility] Platelet mean volume Auto Entitic volume (Bld) 10.1 fL Invalid Interpretation Code 9 - 15.5 fL [facility] Platelets Auto #/vol (Bld) 254 10*3/uL Invalid Interpretation Code [facility] RBC Auto #/vol (Bld) 4.59 10*6/uL Invalid Interpretation Code [facility] WBC Auto #/vol (Bld) 10.56 10*3/uL Invalid Interpretation Code [facility] Chem 7on 03-04-2018 Anion gap 3 molar conc 15 mmol/L Invalid Interpretation Code 10 - 20 mmol/L [facility] Chloride molar conc 103 mmol/L Invalid Interpretation Code 98 - 108 mmol/L [facility] Creatinine mass conc 0.85 mg/dL Invalid Interpretation Code 0.4 - 1.1 mg/dL [facility] GFR/1.73 sq M predicted among non-blacks MDRD vol rate/area (S/P/Bld) The eGFR should be used for monitoring renal function only and not for medication dosing. Invalid Interpretation Code [facility] GFR/1.73 sq M.predicted CKD-EPI vol rate/area (S/P/Bld) 81 Invalid Interpretation Code >=60 mL/min/1.7 3 m2 [facility] Glucose mass conc 92 mg/dL Invalid Interpretation Code 65 - 99 mg/dL [facility] HCO3 molar conc 25 mmol/L Invalid Interpretation Code 21 - 32 mmol/L [facility] Potassium molar conc 4.4 mmol/L Invalid Interpretation Code 3.5 - 5.1 mmol/L [facility] Sodium molar conc 139 mmol/L Invalid Interpretation Code 135 - 145 mmol/L [facility] Urea nitrogen mass conc 7 mg/dL Low 8 - 25 mg/dL [facility] Urea nitrogen/Creatinine mass ratio 8.2 mg/mg Low [facility] Hepatic Function Panel (LFT) on 03-04-2018 Albumin mass conc 4.5 g/dL Invalid Interpretation Code 3.2 - 5.2 g/dL [facility] ALP enzyme act/vol 97 U/L Invalid Interpretation Code 40 - 150 U/L [facility] ALT enzyme act/vol 9 U/L Invalid Interpretation Code 0 - 40 U/L [facility] AST enzyme act/vol 15 U/L Invalid Interpretation Code 0 - 45 U/L [facility] Bilirubin mass conc mg/dL Invalid Interpretation Code 0 - 1.3 mg/dL [facility] [facility] Bilirubin.conjugated mass conc mg/dL Invalid Interpretation Code 0 - 0.4 mg/dL [facility] Interpretation and review of laboratory results Normal Invalid Interpretation Code [facility] Protein mass conc 7.2 g/dL Invalid Interpretation Code 6 - 8 g/dL [facility] Lipaseon 03-04-2018 Lipase enzyme act/vol 179 U/L High 15 - 6 5 U/L [facility] Otheron 03-04-2018 Extra Tube Hold for add-ons. Invalid Interpretation Code [facility] Comment on above: Auto resulted. Interpretation and review of laboratory results Abnormal Invalid Interpretation Code [facility] URINALYSISon 03-04-2018 Bacteria Auto Ql (U) Rare Abnormal None Se en /hpf [facility] Bilirubin Ql (U) Negative Invalid Interpretation Code Negative [facility] Clarity Refractometry automated Nom (U) Clear Invalid Interpretation Code Clear [facility] Color Auto Nom (U) Colorless Invalid Interpretation Code Colorless, Yellow [facility] Epithelial cells.squamous Auto #/area (Urine sed) 1 Invalid Interpretation Code [facility] Glucose Automated test strip mass conc (U) Negative Invalid Interpretation Code Negative mg/dL [facility] Hemoglobin Automated test strip Ql (U) Negative Invalid Interpretation Code Negative [facility] Interpretation and review of laboratory results Abnormal Invalid Interpretation Code [facility] Ketones mass conc (U) Negative Invalid Interpretation Code Negative mg/dL [facility] Leukocyte esterase Automated test strip Ql (U) Negative Invalid Interpretation Code Negative [facility] Nitrite Automated test strip Ql (U) Negative Invalid Interpretation Code Negative [facility] pH Test strip (U) 7.0 [pH] Invalid Interpretation Code [facility] Protein mass conc (U) Negative Invalid Interpretation Code Negative mg/dL [facility] RBC Auto #/area (Urine sed) 2 Invalid Interpretation Code [facility] Specific gravity Automated test strip Relative Density (U) 1.004 Low [facility] Urobilinogen Test strip Qn (U) <2.0 Invalid Interpretation Code <2.0 mg/dL [facility] WBC Auto #/area (Urine sed) <1 Invalid Interpretation Code [facility] Microscopic examinat ion is performed on all urinalysis samples and only positive findings are reported. The test for blood on the chemical analytic portion of urinalysis may also be positive due to hemoglobinuria and myoglobinuria and if red blood cells are present they are quantified by microscopic examination. Invalid Interpretation Code [facility] BMPon 08-24-2017 Anion gap 18 mmol/L Invalid Interpretation Code 10 - 20 mmol/L [facility] Bicarbonate (HCO3) 27 mmol/L Invalid Interpretation Code 21 - 32 mmol/L [facility] BUN/Creatinine Ratio 10.1 mg/mg Invalid Interpretation Code 10.0 - 20.0 [facility] Calcium 10.6 mg/dL High 8.4 - 10.2 mg/dL [facility] Chloride 101 mmol/L Invalid Interpretation Code 98 - 108 mmol/L [facility] Creatinine 0.69 mg/dL Invalid Interpretation Code 0.4 - 1.1 mg/dL [facility] eGFR (non-black) 103 mL/min/{1.73_m2} Invalid Interpretation Code >=60 [facility] eGFR (non-black) The eGFR should be u sed for monitoring renal function only and not for medication dosing. Invalid Interpretation Code [facility] Glucose mass conc 105 mg/dL High 65 - 99 mg/dL [facility] Interpretation and review of laboratory results Abnormal Invalid Interpretation Code [facility] Potassium molar conc 4.1 mmol/L Invalid Interpretation Code 3.5 - 5.1 mmol/L [facility] Sodium 142 mmol/L Invalid Interpretation Code 135 - 145 mmol/L [facility] Urea nitrogen 7 mg/dL Low 8 - 25 mg/dL [facility] CBC Auto Differentialon 08-07 Basophils Auto #/vol (Bld) 0.08 K/mcL Invalid Interpretation Code 0.00 - 0.30 [facility] Basophils/100 WBC Auto (Bld) 0.6 % Invalid Interpretation Code [facility] Eosinophils 0.05 K/mcL Invalid Interpretation Code 0.00 - 0.50 [facility] Eosinophils/100 leukocytes 0.4 % Invalid Interpretation Code [facility] Erythrocyte distribution width Auto Entitic volume (RBC) 12.2 % Invalid Interpretation Code 11.6 - 14.8 % [facility] Erythrocytes (RBC) 4.60 M/mcL Invalid Interpretation Code 4.00 - 5.20 [facility] Hematocrit (HCT) 43.4 % Invalid Interpretation Code 36 - 46 % [facility] Hemoglobin mass conc (Bld) 15.2 g/dL Invalid Interpretation Code 12 - 16 g/dL [facility] Immature granulocytes #/vol (Bld) 0.05 K/mcL Invalid Interpretation Code 0.00 - 0.30 [facility] Immature granulocytes/100 WBC (Bld) 0.40 % Invalid Interpretation Code [facility] Comment on above: The IG parameter is the percentage of metamyelocytes, myelocytes, and promyelocytes. Lymphocytes 2.40 K/mcL Invalid Interpretation Code 0.90 - 4.00 [facility] Lymphocytes/100 leukocytes 18.1 % Invalid Interpretation Code [facility] MCH 33.0 pg Invalid Interpretation Code 26 - 34 pg [facility] MCHC mass conc (RBC) 35.0 g/dL Invalid Interpretation Code 31 - 37 g/dL [facility] MCV 94.3 fL Invalid Interpretation Code 80 - 100 fL [facility] Monocytes 0.85 K/mcL Invalid Interpretation Code 0.30 - 0.90 [facility] Monocytes/100 leukocytes 6.4 % Invalid Interpretation Code [facility] Neutrophils 9.81 K/mcL High 1.70 - 7.00 [facility] Neutrophils/100 WBC Auto (Bld) 74.1 % Invalid Interpretation Code [facility] Nucleated erythrocytes 0.00 K/mcL Invalid Interpretation Code 0.00 - 0.00 [facility] Nucleated erythrocytes/100 erythrocytes 0.0 % Invalid Interpretation Code [facility] Platelet mean volume (PMV) 10.0 fL Invalid Interpretation Code 9 - 15.5 fL [facility] Platelets 242 K/mcL Invalid Interpretation Code 150 - 400 [facility] WBC (Leukocytes) 13.24 K/mcL High 4.50 - 11.00 [facility] CBC w/ Diffon 08-24-2017 Creatinine The following orders were created for panel order CBC w/ Diff. Procedure Abnormality Status --------- ------ CBC Auto Differential[[id number]] Abnormal Final result Please view results for these tests on the individual orders. Invalid Interpretation Code [facility] CT ABDOMEN PELVIS WITH IV CO NTRAST [...] and demonstrated a prominent signal loss on [id number] images on MRI performed 09/06/2014, compatible with [...] ThuAug 24, 2017 4:03:34 PM EDT Normal [facility] Comment on above: Order Comment: Reaso n for exam?:abd painInjury/Trauma or Illness?:Illness/OtherHow long have you had these symptoms (acute/chronic)?:ChronicType of Exam?:Subsequent/Follow-upAdditional signs and symptoms?:chronic pancreatitis CT Abdomen Pelvis With IV Co ntrast Onlyon 08-24-2017 CT Abdomen Pelvis With IV Contrast Only Interface, Rad In [facility] - 08/24/2017 4:06 PM EDT [...] and demonstrated a prominent signal loss on [id number] images on MRI performed 09/06/2014, compatible with [...] probably remain. 5. Small left adrenal adenoma. [employer] Workstation ID: [id number] Invalid Interpretation Code [employer] CT Abdomen Pelvis With IV Contrast [...] and demonstrated a prominent signal loss on [id number] images on MRI performed 09/06/2014, compatible with [...] suspicious focal osseous lesions. Invalid Interpretation Code [employer] CT Abdomen Pelvis With IV Contrast [...] probably remain. 5. Small left adrenal adenoma. [employer] Workstation ID: [id number] Invalid Interpretation Code [employer] Hepatic Function Panel (LFT) on 08-24-2017 Alanine aminotransferase (ALT) 14 U/L Invalid Interpretation Code 0 - 40 U/L [facility] Albumin 4.7 g/dL Invalid Interpretation Code 3.2 - 5.2 g/dL [facility] Alkaline phosphatase (ALP) 91 U/L Invalid Interpretation Code 40 - 150 U/L [facility] Aspartate aminotransferase (AST) 17 U/L Invalid Interpretation Code 0 - 45 U/L [facility] Bilirubin (conjugated) mg/dL Invalid Interpretation Code 0 - 0.4 mg/dL [facility] Bilirubin (total) mg/dL Invalid Interpretation Code 0 - 1.3 mg/dL [facility] Interpretation and review of laboratory results Normal Invalid Interpretation Code [facility] Protein 7.4 g/dL Invalid Interpretation Code 6 - 8 g/dL [facility] Lactic Acid, Plasmaon 2017 Lactate 1.0 mmol/L Invalid Interpretation Code 0.6 - 2 mmol/L [facility] Light Blue Topon 08-24-2017 Extra Tube Hold for add-ons. Invalid Interpretation Code [facility] Comment on above: Auto resulted. Lipaseon 08-24-2017 Lipase 51 U/L Invalid Interpretation Code 15 - 65 U/L [facility] Scissors Topon 08-24-2017 Scissors Top Invalid Interpretation Code [facility] [place] Drawon 08-24-2017 Creatinine The following orders were created for panel order [place] Draw. Procedure Abnormality Status --------- ------ Gold Top[[id number]] Final result Light Blue Top[[id number]] Final result Scissors Top[[id number]] Final result Please view results for these tests on the individual orders. Invalid Interpretation Code [facility] Urinalysison 08-24-2017 Bilirubin Ql (U) Negative Invalid Interpretation Code Negative [facility] Blood, Urine Negative Invalid Interpretation Code Negative [facility] Interpretation and review of laboratory results Abnormal Invalid Interpretation Code [facility] Nitrite, Urine Negative Invalid Interpretation Code Negative [facility] Squamous Epithelial 5 /hpf High 0 - 4 [facility] Transitional Epithelial <1 Invalid Interpretation Code 0 - 1 /hpf [facility] Urine, bacteria in sediment Rare Abnormal None Seen /hpf [facility] Urine, clarity Hazy Abnormal Clear [facility] Urine, color Yellow Invalid Interpretation Code Colorless, Yellow [facility] Urine, erythrocytes 1 /hpf Invalid Interpretation Code 0 - 3 [facility] Urine, glucose presence Negative Invalid Interpretation Code Negative mg/dL [facility] Urine, ketones presence Negative Invalid Interpretation Code Negative mg/dL [facility] Urine, leukocyte esterase presence Negative Invalid Interpretation Code Negative [facility] Urine, pH 7.0 [pH] Invalid Interpretation Code 5.0 - 7.0 [facility] Urine, protein Negative Invalid Interpretation Code Negative mg/dL [facility] Urine, specific gravity 1.006 1 Invalid Interpretation Code 1.005 - 1.025 [facility] Urine, urobilinogen <2.0 Invalid Interpretation Code <2.0 mg/dL [facility] WBCs, Urine 1 /hpf Invalid Interpretation Code 0 - 5 [facility] Urinalysis Microscopic examinat ion is performed on all urinalysis samples and only positive findings are reported. The test for blood on the chemical analytic portion of urinalysis may also be positive due to hemoglobinuria and myoglobinuria and if red blood cells are present they are quantified by microscopic examination. Invalid Interpretation Code [facility] BMPon 06-09-2017 Anion gap 18 mmol/L Invalid Interpretation Code 10 - 20 mmol/L [facility] Bicarbonate (HCO3) 21 mmol/L Invalid Interpretation Code 21 - 32 mmol/L [facility] BUN/Creatinine Ratio 11.0 mg/mg Invalid Interpretation Code 10.0 - 20.0 [facility] Calcium 10.2 mg/dL Invalid Interpretation Code 8.4 - 10.2 mg/dL [facility] Chloride 102 mmol/L Invalid Interpretation Code 98 - 108 mmol/L [facility] Creatinine 0.73 mg/dL Invalid Interpretation Code 0.4 - 1.1 mg/dL [facility] eGFR (non-black) The eGFR should be u sed for monitoring renal function only and not for medication dosing. Invalid Interpretation Code [facility] eGFR (non-black) 98 mL/min/{1.73_m2} Invalid Interpretation Code >=60 [facility] Glucose 80 mg/dL Invalid Interpretation Code 65 - 99 mg/dL [facility] Potassium 4.3 mmol/L Invalid Interpretation Code 3.5 - 5.1 mmol/L [facility] Sodium 137 mmol/L Invalid Interpretation Code 135 - 145 mmol/L [facility] Urea nitrogen 8 mg/dL Invalid Interpretation Code 8 - 25 mg/dL [facility] CBC Auto Differentialon 04-0 3-2018 Basophils 0.07 K/mcL Invalid Interpretation Code 0.00 - 0.30 [facility] Basophils/100 leukocytes 0.7 % Invalid Interpretation Code [facility] Eosinophils 0.10 K/mcL Invalid Interpretation Code 0.00 - 0.50 [facility] Eosinophils/100 leukocytes 1.0 % Invalid Interpretation Code [facility] Erythrocytes (RBC) 4.75 M/mcL Invalid Interpretation Code 4.00 - 5.20 [facility] Erythrocytes (RBC) 0.00 K/mcL Invalid Interpretation Code 0.00 - 0.00 [facility] Hematocrit (HCT) 46.1 % High 36 - 46 % [facility] Hemoglobin (HGB) 16.1 g/dL High 12 - 16 g/dL [facility] IG Absolute 0.02 K/mcL Invalid Interpretation Code 0.00 - 0.30 [facility] IG Percent 0.20 % Invalid Interpretation Code [facility] Lymphocytes 1.75 K/mcL Invalid Interpretation Code 0.90 - 4.00 [facility] Lymphocytes/100 leukocytes 17.9 % Invalid Interpretation Code [facility] MCH 33.9 pg Invalid Interpretation Code 26 - 34 pg [facility] MCHC 34.9 g/dL Invalid Interpretation Code 31 - 37 g/dL [facility] MCV 97.1 fL Invalid Interpretation Code 80 - 100 fL [facility] Monocytes 0.88 K/mcL Invalid Interpretation Code 0.30 - 0.90 [facility] Monocytes/100 leukocytes 9.0 % Invalid Interpretation Code [facility] Neutrophils 6.98 K/mcL Invalid Interpretation Code 1.70 - 7.00 [facility] Neutrophils/100 leukocytes 71.2 % Invalid Interpretation Code [facility] Nucleated erythrocytes/100 erythrocytes 0.0 % Invalid Interpretation Code [facility] Platelet mean volume (PMV) 10.9 fL Invalid Interpretation Code 9 - 15.5 fL [facility] Platelets 223 K/mcL Invalid Interpretation Code 150 - 400 [facility] RDW-CA 12.8 % Invalid Interpretation Code 11.6 - 14.8 % [facility] WBC (Leukocytes) 9.80 K/mcL Invalid Interpretation Code 4.50 - 11.00 [facility] Interpretation and review of laboratory results Abnormal Invalid Interpretation Code [facility] CBC w/ Diffon 06-09-2017 Creatinine The following orders were created for panel order CBC w/ Diff. Procedure Abnormality Status --------- ------ CBC Auto Differential[[id number]] Abnormal Final result Please view results for these tests on the individual orders. Invalid Interpretation Code [facility] Hepatic Function Panel (LFT) on 06-09-2017 Alanine aminotransferase (ALT) 10 U/L Invalid Interpretation Code 0 - 40 U/L [facility] Albumin 4.4 g/dL Invalid Interpretation Code 3.2 - 5.2 g/dL [facility] Alkaline phosphatase (ALP) 89 U/L Invalid Interpretation Code 40 - 150 U/L [facility] Aspartate aminotransferase (AST) 20 U/L Invalid Interpretation Code 0 - 45 U/L [facility] Bilirubin (conjugated) mg/dL Invalid Interpretation Code 0 - 0.4 mg/dL [facility] Bilirubin (total) mg/dL Invalid Interpretation Code 0 - 1.3 mg/dL [facility] Interpretation and review of laboratory results Normal Invalid Interpretation Code [facility] Protein 7.3 g/dL Invalid Interpretation Code 6 - 8 g/dL [facility] Lipaseon 06-09-2017 Lipase 50 U/L Invalid Interpretation Code 15 - 65 U/L [facility] [place] Drawon 06-09-2017 Creatinine The following orders were created for panel order [place] Draw. Procedure Abnormality Status --------- ------ Urine Container[[id number]] Final result Please view results for these tests on the individual orders. Invalid Interpretation Code [facility] Urinalysison 06-09-2017 Bilirubin, Urine Negative Invalid Interpretation Code Negative [facility] Blood, Urine Negative Invalid Interpretation Code Negative [facility] Calcium Many Abnormal None Seen /hpf [facility] Mucus, Urine Rare Invalid Interpretation Code None Seen, Rare /lpf [facility] Nitrite, Urine Negative Invalid Interpretation Code Negative [facility] RBCs, Urine 1 /hpf Invalid Interpretation Code 0 - 3 [facility] Squamous Epithelial 4 /hpf Invalid Interpretation Code 0 - 4 [facility] Urine, bacteria in sediment None Seen Invalid Interpretation Code None Seen /hpf [facility] Urine, clarity Cloudy Abnormal Clear [facility] Urine, color Yellow Invalid Interpretation Code Colorless, Yellow [facility] Urine, glucose presence Negative Invalid Interpretation Code Negative mg/dL [facility] Urine, ketones presence Trace Abnormal Negative mg/dL [facility] Urine, leukocyte esterase presence Negative Invalid Interpretation Code Negative [facility] Urine, pH 5.0 [pH] Invalid Interpretation Code 5.0 - 7.0 [facility] Urine, protein Negative Invalid Interpretation Code Negative mg/dL [facility] Urine, specific gravity 1.024 1 Invalid Interpretation Code 1.005 - 1.025 [facility] Urine, urobilinogen 2.0 mg/dL Abnormal <2.0 [facility] WBCs, Urine 1 /hpf Invalid Interpretation Code 0 - 5 [facility] Urinalysis Microscopic examinat ion is performed on all urinalysis samples and only positive findings are reported. The test for blood on the chemical analytic portion of urinalysis may also be positive due to hemoglobinuria and myoglobinuria and if red blood cells are present they are quantified by microscopic examination. Invalid Interpretation Code [facility] Urine Containeron 06-09-2017 Urine Container Invalid Interpretation Code [facility] CBCon 05-15-2017 Erythrocytes (RBC) 3.76 M/mcL Low 4.00 - 5.20 [facility] Erythrocytes (RBC) 0.00 K/mcL Invalid Interpretation Code 0.00 - 0.00 [facility] Hematocrit (HCT) 37.1 % Invalid Interpretation Code 36 - 46 % [facility] Hemoglobin (HGB) 12.4 g/dL Invalid Interpretation Code 12 - 16 g/dL [facility] MCH 33.0 pg Invalid Interpretation Code 26 - 34 pg [facility] MCHC 33.4 g/dL Invalid Interpretation Code 31 - 37 g/dL [facility] MCV 98.7 fL Invalid Interpretation Code 80 - 100 fL [facility] Nucleated erythrocytes/100 erythrocytes 0.0 % Invalid Interpretation Code [facility] Platelet mean volume (PMV) 9.9 fL Invalid Interpretation Code 9 - 15.5 fL [facility] Platelets 197 K/mcL Invalid Interpretation Code 150 - 400 [facility] RDW-CA 12.6 % Invalid Interpretation Code 11.6 - 14.8 % [facility] WBC (Leukocytes) 7.55 K/mcL Invalid Interpretation Code 4.50 - 11.00 [facility] Comprehensive Metabolic Pane nimesh 05-15-2017 Alanine aminotransferase (ALT) 9 U/L Invalid Interpretation Code 0 - 40 U/L [facility] Albumin 3.3 g/dL Invalid Interpretation Code 3.2 - 5.2 g/dL [facility] Alkaline phosphatase (ALP) 73 U/L Invalid Interpretation Code 40 - 150 U/L [facility] Anion gap 15 mmol/L Invalid Interpretation Code 10 - 20 mmol/L [facility] Aspartate aminotransferase (AST) 13 U/L Invalid Interpretation Code 0 - 45 U/L [facility] Bicarbonate (HCO3) 23 mmol/L Invalid Interpretation Code 21 - 32 mmol/L [facility] Bilirubin (total) 0.2 mg/dL Invalid Interpretation Code 0 - 1.3 mg/dL [facility] BUN/Creatinine Ratio 9.4 mg/mg Low 10.0 - 20.0 [facility] Calcium 8.4 mg/dL Invalid Interpretation Code 8.4 - 10.2 mg/dL [facility] Chloride 108 mmol/L Invalid Interpretation Code 98 - 108 mmol/L [facility] Creatinine 0.64 mg/dL Invalid Interpretation Code 0.4 - 1.1 mg/dL [facility] eGFR (non-black) The eGFR should be u sed for monitoring renal function only and not for medication dosing. Invalid Interpretation Code [facility] eGFR (non-black) 107 mL/min/{1.73_m2} Invalid Interpretation Code >=60 [facility] Glucose 91 mg/dL Invalid Interpretation Code 65 - 99 mg/dL [facility] Potassium 4.0 mmol/L Invalid Interpretation Code 3.5 - 5.1 mmol/L [facility] Protein 5.3 g/dL Low 6 - 8 g/dL [facility] Sodium 142 mmol/L Invalid Interpretation Code 135 - 145 mmol/L [facility] Urea nitrogen 6 mg/dL Low 8 - 25 mg/dL [facility] Lipaseon 05-15-2017 Interpretation and review of laboratory results Normal Invalid Interpretation Code [facility] Lipase 31 U/L Invalid Interpretation Code 15 - 65 U/L [facility] Lipid Panelon 05-15-2017 Cholesterol 193 mg/dL Invalid Interpretation Code 100 - 199 mg/dL [facility] Cholesterol to HDL Ratio 7.1 {ratio} Invalid Interpretation Code [facility] HDL Cholesterol 27 mg/dL Low 40 - 59 mg/dL [facility] HDL Cholesterol 166 mg/dL Invalid Interpretation Code [facility] Interpretation and review of laboratory results Abnormal Invalid Interpretation Code [facility] LDL Cholesterol 108 mg/dL Invalid Interpretation Code 10 - 130 mg/dL [facility] Triglyceride 291 mg/dL High 30 - 150 mg/dL [facility] BMPon 05-14-2017 Anion gap 18 mmol/L Invalid Interpretation Code 10 - 20 mmol/L [facility] Bicarbonate (HCO3) 25 mmol/L Invalid Interpretation Code 21 - 32 mmol/L [facility] BUN/Creatinine Ratio 11.8 mg/mg Invalid Interpretation Code 10.0 - 20.0 [facility] Calcium 10.7 mg/dL High 8.4 - 10.2 mg/dL [facility] Chloride 102 mmol/L Invalid Interpretation Code 98 - 108 mmol/L [facility] Creatinine 0.68 mg/dL Invalid Interpretation Code 0.4 - 1.1 mg/dL [facility] eGFR (non-black) The eGFR should be u sed for monitoring renal function only and not for medication dosing. Invalid Interpretation Code [facility] eGFR (non-black) 105 mL/min/{1.73_m2} Invalid Interpretation Code >=60 [facility] Glucose 86 mg/dL Invalid Interpretation Code 65 - 99 mg/dL [facility] Potassium 4.0 mmol/L Invalid Interpretation Code 3.5 - 5.1 mmol/L [facility] Sodium 141 mmol/L Invalid Interpretation Code 135 - 145 mmol/L [facility] Urea nitrogen 8 mg/dL Invalid Interpretation Code 8 - 25 mg/dL [facility] CBC Auto Differentialon 03-0 Basophils 0.09 K/mcL Invalid Interpretation Code 0.00 - 0.30 [facility] Basophils/100 leukocytes 0.8 % Invalid Interpretation Code [facility] Eosinophils 0.08 K/mcL Invalid Interpretation Code 0.00 - 0.50 [facility] Eosinophils/100 leukocytes 0.7 % Invalid Interpretation Code [facility] Erythrocytes (RBC) 0.00 K/mcL Invalid Interpretation Code 0.00 - 0.00 [facility] Erythrocytes (RBC) 4.96 M/mcL Invalid Interpretation Code 4.00 - 5.20 [facility] Hematocrit (HCT) 48.5 % High 36 - 46 % [facility] Hemoglobin (HGB) 16.6 g/dL High 12 - 16 g/dL [facility] IG Absolute 0.04 K/mcL Invalid Interpretation Code 0.00 - 0.30 [facility] IG Percent 0.40 % Invalid Interpretation Code [facility] Interpretation and review of laboratory results Abnormal Invalid Interpretation Code [facility] Lymphocytes 1.89 K/mcL Invalid Interpretation Code 0.90 - 4.00 [facility] LAB Lymphocytes/100 leukocytes 17.7 % Invalid Interpretation Code [facility] MCH 33.5 pg Invalid Interpretation Code 26 - 34 pg [facility] MCHC 34.2 g/dL Invalid Interpretation Code 31 - 37 g/dL [facility] MCV 97.8 fL Invalid Interpretation Code 80 - 100 fL [facility] Monocytes 0.74 K/mcL Invalid Interpretation Code 0.30 - 0.90 [facility] Monocytes/100 leukocytes 6.9 % Invalid Interpretation Code [facility] Neutrophils 7.86 K/mcL High 1.70 - 7.00 [facility] Neutrophils/100 leukocytes 73.5 % Invalid Interpretation Code [facility] Nucleated erythrocytes/100 erythrocytes 0.0 % Invalid Interpretation Code [facility] Platelet mean volume (PMV) 9.8 fL Invalid Interpretation Code 9 - 15.5 fL [facility] Platelets 275 K/mcL Invalid Interpretation Code 150 - 400 [facility] RDW-CA 12.8 % Invalid Interpretation Code 11.6 - 14.8 % [facility] WBC (Leukocytes) 10.70 K/mcL Invalid Interpretation Code 4.50 - 11.00 [facility] CBC w/ Diffon 05-14-2017 Creatinine The following orders were created for panel order CBC w/ Diff. Procedure Abnormality Status --------- ------ CBC Auto Differential[[id number]] Abnormal Final result Please view results for these tests on the individual orders. Invalid Interpretation Code [facility] CT ABDOMEN PELVIS WITH IV CO NTRAST [...] appendix in the left lower pelvis.Workstation ID: [id number] by: ERROL ANN on ThuMay 14, 2017 4:08:10 PM ESTTranscribed by: SETHERROL Espinal on ThuMay 14, 2017 4:08:10 PM ESTFinalized by: ERROL ANN on ThuMay 14, 2017 4:08:10 PM EST Normal [facility] Comment on above: Order Comment: [...] at L1-L2 and L4-L5. Invalid Interpretation Code [facility] [employer] [facility] CT Abdomen Pelvis With IV Contrast Only Interface, Rad In Calvin Speechq - 05/14/2017 4:10 PM EST EXAMINATION: [...] in the left lower pelvis. Workstation ID: [id number] Invalid Interpretation Code [employer] [facility] CT Abdomen Pelvis With IV Contrast [...] in the left lower pelvis. Workstation ID: [id number] Invalid Interpretation Code [employer] [facility] Ruff Topon 05-14-2017 Extra Tube Hold for add-ons. Invalid Interpretation Code [facility] Hepatic Function Panel (LFT) on 05-14-2017 Alanine aminotransferase (ALT) 13 U/L Invalid Interpretation Code 0 - 40 U/L [facility] Albumin 4.8 g/dL Invalid Interpretation Code 3.2 - 5.2 g/dL [facility] Alkaline phosphatase (ALP) 102 U/L Invalid Interpretation Code 40 - 150 U/L [facility] Aspartate aminotransferase (AST) 20 U/L Invalid Interpretation Code 0 - 45 U/L [facility] Bilirubin (conjugated) mg/dL Invalid Interpretation Code 0 - 0.4 mg/dL [facility] Bilirubin (total) 0.2 mg/dL Invalid Interpretation Code 0 - 1.3 mg/dL [facility] Interpretation and review of laboratory results Normal Invalid Interpretation Code [facility] Protein 7.9 g/dL Invalid Interpretation Code 6 - 8 g/dL [facility] Lipaseon 05-14-2017 Lipase 137 U/L High 15 - 65 U/L [facility] Scissors Topon 05-14-2017 Scissors Top Invalid Interpretation Code [facility] [place] Drawon 05-14-2017 Creatinine The following orders were created for panel order [place] Draw. Procedure Abnormality Status --------- ------ Gold Top[[id number]] Final result Light Blue Top[[id number]] Final result Ruff Top[[id number]] Final result Scissors Top[[id number]] Final result Please view results for these tests on the individual orders. Invalid Interpretation Code [facility] Urinalysison 05-14-2017 Bilirubin, Urine Negative Invalid Interpretation Code Negative [facility] Blood, Urine Negative Invalid Interpretation Code Negative [facility] Interpretation and review of laboratory results Abnormal Invalid Interpretation Code [facility] Mucus, Urine Rare Invalid Interpretation Code None Seen, Rare /lpf [facility] Nitrite, Urine Negative Invalid Interpretation Code Negative [facility] RBCs, Urine 2 /hpf Invalid Interpretation Code 0 - 3 [facility] Squamous Epithelial 3 /hpf Invalid Interpretation Code 0 - 4 [facility] Urine, bacteria in sediment Rare Abnormal None Seen /hpf [facility] Urine, clarity Clear Invalid Interpretation Code Clear [facility] Urine, color Yellow Invalid Interpretation Code Colorless, Yellow [facility] Urine, glucose presence Negative Invalid Interpretation Code Negative mg/dL [facility] Urine, ketones presence Negative Invalid Interpretation Code Negative mg/dL [facility] Urine, leukocyte esterase presence Negative Invalid Interpretation Code Negative [facility] Urine, pH 5.0 [pH] Invalid Interpretation Code 5.0 - 7.0 [facility] Urine, protein Negative Invalid Interpretation Code Negative mg/dL [facility] Urine, specific gravity 1.006 1 Invalid Interpretation Code 1.005 - 1.025 [facility] Urine, urobilinogen <2.0 Invalid Interpretation Code <2.0 mg/dL [facility] WBCs, Urine 1 /hpf Invalid Interpretation Code 0 - 5 [facility] Urinalysis Microscopic examinat ion is performed on all urinalysis samples and only positive findings are reported. The test for blood on the chemical analytic portion of urinalysis may also be positive due to hemoglobinuria and myoglobinuria and if red blood cells are present they are quantified by microscopic examination. Invalid Interpretation Code [facility] Vital Signs Date Time Vital Sign Value Performing Clinician Facility 09-08-2023 09:00-0400 Diastolic blood pressure 54 mm[Hg] Sabrina Dee MD, MPH Work Phone: [facility] 09-08-2023 09:00-0400 Heart rate 83 /min Sabrina Dee MD, MPH Work Phone: [facility] 09-08-2023 09:00-0400 Respiratory rate 13 /min Sabrina Dee MD, MPH Work Phone: [facility] 09-08-2023 09:00-0400 SaO2% (BldA) [Mass fraction] 95 % Sabrina Dee MD, MPH Work Phone: [facility] 09-08-2023 09:00-0400 Systolic blood pressure 94 mm[Hg] Sabrina Dee MD, MPH Work Phone: [facility] 09-08-2023 08:04-0400 Body temperature 97.7 [degF] Sabrina Dee MD, MPH Work Phone: [facility] 09-08-2023 06:43-0400 Body height 157.5 cm Sabrina Dee MD, MPH Work Phone: [facility] 05-11-2023 09:01-0500 Body height 157.5 cm Sabrina Dee MD, MPH Work Phone: [facility] 05-11-2023 09:01-0500 Body mass index (BMI) [Ratio] 21 kg/m2 Sabrina Dee MD, MPH Work Phone: [facility] 05-11-2023 09:01-0500 Body weight 52.07 kg Sabrina Dee MD, MPH Work Phone: [facility] 05-11-2023 09:01-0500 Diastolic blood pressure 48 mm[Hg] Sabrina Dee MD, MPH Work Phone: [facility] 05-11-2023 09:01-0500 Heart rate 107 /min Sabrina Dee MD, MPH Work Phone: [facility] 05-11-2023 09:01-0500 SaO2% (BldA) [Mass fraction] 97 % Sabrina Dee MD, MPH Work Phone: [facility] 05-11-2023 09:01-0500 Systolic blood pressure 110 mm[Hg] Sabrina Dee MD, MPH Work Phone: [facility] 04-18-2023 17:39-0500 Diastolic blood pressure 79 mm[Hg] [facility] 04-18-2023 17:39-0500 Heart rate 114 /min [facility] 04-18-2023 17:39-0500 Respiratory rate 16 /min [facility] 04-18-2023 17:39-0500 SaO2% (BldA) [Mass fraction] 98 % [facility] 04-18-2023 17:39-0500 Systolic blood pressure 168 mm[Hg] [facility] 04-18-2023 15:29-0500 Body height 157.48 cm [facility] 04-18-2023 15:29-0500 Body temperature 99.3 [degF] [facility] 04-18-2023 15:29-0500 Body weight 51.25 kg [facility] 04-11-2023 23:50-0500 Diastolic blood pressure 82 mm[Hg] [facility] 04-11-2023 23:50-0500 Heart rate 106 /min [facility] 04-11-2023 23:50-0500 SaO2% (BldA) [Mass fraction] 97 % [facility] 04-11-2023 23:50-0500 Systolic blood pressure 151 mm[Hg] [facility] 04-11-2023 22:25-0500 Respiratory rate 18 /min [facility] 04-11-2023 21:20-0500 Body height 157.48 cm [facility] 04-11-2023 21:20-0500 Body temperature 97.2 [degF] [facility] 04-11-2023 21:20-0500 Body weight 52 kg [facility] 04-02-2023 19:20-0500 Diastolic blood pressure 74 mm[Hg] [facility] 04-02-2023 19:20-0500 Heart rate 91 /min [facility] 04-02-2023 19:20-0500 Respiratory rate 18 /min [facility] 04-02-2023 19:20-0500 SaO2% (BldA) [Mass fraction] 96 % [facility] 04-02-2023 19:20-0500 Systolic blood pressure 137 mm[Hg] [facility] 04-02-2023 13:45-0500 Body height 157.48 cm [facility] 04-02-2023 13:45-0500 Body temperature 97.6 [degF] [facility] 04-02-2023 13:45-0500 Body weight 54 kg [facility] 11-09-2022 16:30-0400 Diastolic blood pressure 81 mm[Hg] [facility] 11-09-2022 16:30-0400 Heart rate 78 /min [facility] 11-09-2022 16:30-0400 Respiratory rate 18 /min [facility] 11-09-2022 16:30-0400 SaO2% (BldA) [Mass fraction] 99 % [facility] 11-09-2022 16:30-0400 Systolic blood pressure 141 mm[Hg] [facility] 11-09-2022 13:47-0400 Body height 160.02 cm [facility] 11-09-2022 13:47-0400 Body temperature 98.2 [degF] [facility] 11-09-2022 13:47-0400 Body weight 54.2 kg [facility] 08-12-2022 13:15-0400 Diastolic blood pressure 68 mm[Hg] Sabrina Dee MD, MPH Work Phone: [facility] 08-12-2022 13:15-0400 Heart rate 67 /min Sabrina Dee MD, MPH Work Phone: [facility] 08-12-2022 13:15-0400 Respiratory rate 22 /min Sabrina Dee MD, MPH Work Phone: [facility] 08-12-2022 13:15-0400 SaO2% (BldA) [Mass fraction] 99 % Sabrina Dee MD, MPH Work Phone: [facility] 08-12-2022 13:15-0400 Systolic blood pressure 142 mm[Hg] Sabrina Dee MD, MPH Work Phone: [facility] 08-12-2022 11:45-0400 Body temperature 97.81 [degF] Sabrina Dee MD, MPH Work Phone: [facility] 08-12-2022 10:34-0400 Body height 157.5 cm Sabrina Dee MD, MPH Work Phone: [facility] 06-16-2022 10:52-0400 Body mass index (BMI) [Ratio] 23.41 kg/m2 Sabrina Dee MD, MPH Work Phone: [facility] 06-16-2022 10:52-0400 Body weight 58.06 kg Sabrina Dee MD, MPH Work Phone: [facility] 06-16-2022 10:52-0400 Diastolic blood pressure 68 mm[Hg] Sabrina Dee MD, MPH Work Phone: [facility] 06-16-2022 10:52-0400 Heart rate 83 /min Sabrina Dee MD, MPH Work Phone: [facility] 06-16-2022 10:52-0400 SaO2% (BldA) [Mass fraction] 98 % Sabrina Dee MD, MPH Work Phone: [facility] 06-16-2022 10:52-0400 Systolic blood pressure 122 mm[Hg] Sabrina Dee MD, MPH Work Phone: [facility] 03-22-2022 16:51-0500 Diastolic blood pressure 61 mm[Hg] [facility] 03-22-2022 16:51-0500 Heart rate 98 /min [facility] 03-22-2022 16:51-0500 Respiratory rate 20 /min [facility] 03-22-2022 16:51-0500 SaO2% (BldA) [Mass fraction] 98 % [facility] 03-22-2022 16:51-0500 Systolic blood pressure 149 mm[Hg] [facility] 03-22-2022 14:59-0500 Body height 157.48 cm [facility] 03-22-2022 14:59-0500 Body temperature 97.9 [degF] [facility] 03-22-2022 14:59-0500 Body weight 56 kg [facility] 12-16-2021 11:53-0400 Body height 157.5 cm Sabrina Dee MD, MPH Work Phone: [facility] 12-16-2021 11:53-0400 Body mass index (BMI) [Ratio] 22.5 kg/m2 Sabrina Dee MD, MPH Work Phone: [facility] 12-16-2021 11:53-0400 Body weight 55.79 kg Sabrina Dee MD, MPH Work Phone: [facility] 12-16-2021 11:53-0400 Diastolic blood pressure 72 mm[Hg] Sabrina Dee MD, MPH Work Phone: [facility] 12-16-2021 11:53-0400 Heart rate 80 /min Sabrina Dee MD, MPH Work Phone: [facility] 12-16-2021 11:53-0400 SaO2% (BldA) [Mass fraction] 98 % Sabrina Dee MD, MPH Work Phone: [facility] 12-16-2021 11:53-0400 Systolic blood pressure 118 mm[Hg] Sabrina Dee MD, MPH Work Phone: [facility] 10-09-2021 20:00-0400 Body temperature 98.3 [degF] [facility] 10-09-2021 20:00-0400 Diastolic blood pressure 68 mm[Hg] [facility] 10-09-2021 20:00-0400 Heart rate 86 /min [facility] 10-09-2021 20:00-0400 Respiratory rate 20 /min [facility] 10-09-2021 20:00-0400 SaO2% (BldA) [Mass fraction] 100 % [facility] 10-09-2021 20:00-0400 Systolic blood pressure 110 mm[Hg] [facility] 10-09-2021 14:19-0400 Body height 157.48 cm [facility] 10-09-2021 14:19-0400 Body weight 56.69 kg [facility] 10-04-2021 19:00-0400 Diastolic blood pressure 66 mm[Hg] [facility] 10-04-2021 19:00-0400 Heart rate 72 /min [facility] 10-04-2021 19:00-0400 Respiratory rate 16 /min [facility] 10-04-2021 19:00-0400 SaO2% (BldA) [Mass fraction] 96 % [facility] 10-04-2021 19:00-0400 Systolic blood pressure 110 mm[Hg] [facility] 10-04-2021 15:16-0400 Body temperature 97.9 [degF] [facility] 10-04-2021 15:15-0400 Body height 157.48 cm [facility] 10-04-2021 15:15-0400 Body weight 54.5 kg [facility] 09-25-2021 19:58-0400 Heart rate 82 /min [facility] 09-25-2021 18:04-0400 Body temperature 98.1 [degF] [facility] 09-25-2021 18:00-0400 Body height 157.48 cm [facility] 09-25-2021 18:00-0400 Body weight 55.5 kg [facility] 09-25-2021 18:00-0400 Diastolic blood pressure 107 mm[Hg] [facility] 09-25-2021 18:00-0400 Respiratory rate 18 /min [facility] 09-25-2021 18:00-0400 SaO2% (BldA) [Mass fraction] 98 % [facility] 09-25-2021 18:00-0400 Systolic blood pressure 141 mm[Hg] [facility] 08-11-2021 18:12-0400 Heart rate 86 /min [facility] 08-11-2021 18:00-0400 Diastolic blood pressure 69 mm[Hg] [facility] 08-11-2021 18:00-0400 Respiratory rate 20 /min [facility] 08-11-2021 18:00-0400 SaO2% (BldA) [Mass fraction] 98 % [facility] 08-11-2021 18:00-0400 Systolic blood pressure 114 mm[Hg] [facility] 08-11-2021 16:06-0400 Body height 170.18 cm [facility] 08-11-2021 16:06-0400 Body mass index (BMI) [Ratio] 19.6 kg/m2 [facility] 08-11-2021 16:06-0400 Body temperature 97.9 [degF] [facility] 08-11-2021 16:06-0400 Body weight 57 kg [facility] 03-19-2021 14:30-0500 Body height 157.48 cm Marya Ginty Other [employer] [facility] [employer] Other 03-19-2021 14:30-0500 Body mass index (BMI) [Ratio] 24.69 kg/m2 Marya Ginty Other [employer] [facility] [employer] Other 03-19-2021 14:30-0500 Body temperature 96 [degF] Marya Ginty Other [employer] Other 03-19-2021 14:30-0500 Body weight 61.24 kg Marya Ginty Other [employer] Other 03-19-2021 14:30-0500 Respiratory rate 63 /min Marya Ginty Other [employer] Other 03-19-2021 14:30-0500 SaO2% (BldA) [Mass fraction] 97 % Marya Gillana Other [employer] Other 03-26-2020 21:05-0500 Pulse Oximetry 100 % [facility] [place] 03-26-2020 21:01-0500 BP Diastolic 68 mm[Hg] [facility] , [place] 03-26-2020 21:01-0500 BP Systolic 152 mm[Hg] [facility] [place] 03-26-2020 17:32-0500 BMI (Body Mass Index) 22.86 kg/m2 [facility], [place] 03-26-2020 17:32-0500 Body weight 56.7 kg [place], [place] 03-26-2020 17:32-0500 Height 157.5 cm [place], [place] 03-26-2020 17:32-0500 Pulse (Heart Rate) 90 /min [facility] 03-26-2020 17:32-0500 Respiratory Rate 18 /min [facility] [place] 03-26-2020 12:39-0500 Body Temperature 98.71 [degF] [facility] [place] 08-25-2019 08:30-0400 Body Temperature 98.01 [degF] [facility] [place] 08-25-2019 08:30-0400 BP Diastolic 75 mm[Hg] Rajeev [facility] [place] 08-25-2019 08:30-0400 BP Systolic 117 mm[Hg] Rajeev [facility] [place] 08-25-2019 08:30-0400 Pulse (Heart Rate) 84 /min Rajeev [facility] [place] 08-25-2019 08:30-0400 Pulse Oximetry 97 % Rajeev [facility] [place] 08-25-2019 08:30-0400 Respiratory Rate 16 /min [facility] [place] 08-25-2019 05:30-0400 BMI (Body Mass Index) 25.88 kg/m2 Rajeev [facility], [place] 08-25-2019 05:30-0400 Body weight 64.18 kg Rajeev [place], [place] 08-22-2019 16:00-0400 Height 157.5 cm Rajeev [place] 03-04-2018 13:09-0500 BP Diastolic 69 mm[Hg] [facility] 03-04-2018 13:09-0500 BP Systolic 108 mm[Hg] [facility] 03-04-2018 13:09-0500 Pulse (Heart Rate) 79 /min [facility] 03-04-2018 13:09-0500 Pulse Oximetry 99 % [facility] 03-04-2018 13:09-0500 Respiratory Rate 16 /min [facility] 03-04-2018 11:01-0500 BMI (Body Mass Index) 22.86 kg/m2 [facility] 03-04-2018 11:01-0500 Body Temperature 98.6 [degF] [facility] 03-04-2018 11:01-0500 Height 157.5 cm [facility] 03-04-2018 11:01-0500 Weight 56.7 kg [facility] 08-24-2017 20:58-0400 BP Diastolic 64 mm[Hg] [facility] 08-24-2017 20:58-0400 BP Systolic 126 mm[Hg] [facility] 08-24-2017 20:58-0400 Pulse (Heart Rate) 67 /min [facility] 08-24-2017 20:58-0400 Pulse Oximetry 98 % [facility] 08-24-2017 20:58-0400 Respiratory Rate 18 /min [facility] 08-24-2017 13:41-0400 BMI (Body Mass Index) 21.58 kg/m2 [facility] 08-24-2017 13:41-0400 Body Temperature 98.29 [degF] [facility] 08-24-2017 13:41-0400 Height 157.5 cm [facility] 08-24-2017 13:41-0400 Weight 53.52 kg [facility] 06-09-2017 09:32-0400 BP Diastolic 73 mm[Hg] [facility] 06-09-2017 09:32-0400 BP Systolic 106 mm[Hg] [facility] 06-09-2017 09:32-0400 Pulse (Heart Rate) 86 /min [facility] 06-09-2017 09:32-0400 Pulse Oximetry 99 % [facility] 06-09-2017 09:32-0400 Respiratory Rate 16 /min [facility] 06-09-2017 07:20-0400 BMI (Body Mass Index) 21.87 kg/m2 [facility] 06-09-2017 07:20-0400 Body Temperature 98.4 [degF] [facility] 06-09-2017 07:20-0400 Height 157.5 cm [facility] 06-09-2017 07:20-0400 Weight 54.23 kg [facility] 05-15-2017 08:11-0500 Body Temperature 98.01 [degF] David Gibson [facility] 05-15-2017 08:11-0500 BP Diastolic 69 mm[Hg] David Paige [facility] 05-15-2017 08:11-0500 BP Systolic 116 mm[Hg] David [facility] 05-15-2017 08:11-0500 Pulse (Heart Rate) 76 /min David Paige [facility] 05-15-2017 08:11-0500 Pulse Oximetry 95 % David Paige [facility] 05-15-2017 08:11-0500 Respiratory Rate 15 /min David Paige [facility] 05-14-2017 12:58-0500 BMI (Body Mass Index) 21.95 kg/m2 David Paige [facility] 05-14-2017 12:58-0500 Height 157.5 cm David Paige [facility] 05-14-2017 12:58-0500 Weight 54.43 kg David Gibson [facility] Encounters Encounter Date Encounter Type Care Provider Facility Start: 09-29-2023 End: 09-29-2023 Emergency department patient visit [facility] Start: 09-08-2023 End: 09-08-2023 Subsequent hospital visit by physician Sabrina Dee MD, MPH Work Phone: [facility] Start: 09-08-2023 ambulatory SABRINA DEE Fa cility:[facility] Start: 05-22-2023 Telephone encounter [facility] Start: 05-11-2023 Chart abstracting Scanning Pro vider External [facility] Start: 05-11-2023 End: 05-11-2023 Office outpatient visit 40 minutes Sabrina Dee MD, MPH Work Phone: [facility] [place] Comment on above: Alcohol-induced counter tender amish pancreatitis (Primary Dx); Encounter for screening for malignant neoplasm of colon; Other osteoporosis without current pathological fracture; Epigastric pain; Smoking; Gastroesophageal reflux disease without esophagitis Start: 05-11-2023 ambulatory SELF SELF Facility:[facility] Start: 04-18-2023 End: 04-18-2023 Emergency department patient visit [facility] Work Phone: Start: 04-16-2023 Telephone encounter [facility] Start: 04-11-2023 End: 04-12-2023 Emergency department patient visit [facility] Work Phone: Start: 04-11-2023 End: 04-11-2023 Emergency department patient visit [facility] Start: 04-11-2023 End: 04-12-2023 Emergency department patient visit TABITHA NEWELL [facility] Start: 04-02-2023 End: 04-02-2023 Emergency department patient visit [facility] Work Phone: Start: 03-27-2023 End: 03-28-2023 Emergency department patient visit VIC BIRMINGHAM [facility] Start: 03-27-2023 End: 03-27-2023 Emergency department patient visit [facility] Start: 11-09-2022 End: 11-09-2022 Emergency department patient visit [facility] Work Phone: Start: 08-12-2022 End: 08-12-2022 Subsequent hospital visit by physician Sabrina Dee MD, MPH Work Phone: [facility] Start: 06-16-2022 End: 06-16-2022 Office outpatient visit 40 minutes Sabrina Dee MD, MPH Work Phone: [facility] [place] Comment on above: Osteoporosis without current pathological [...] MD, MPH Work Phone: [facility] [place] Comment on above: Arrived Start: 01-15-2022 End: 01-15-[address] HELLEN KITCHEN . Facility:[facility] Start: 12-16-2021 End: 12-16-2021 Office outpatient visit 25 minutes Sabrina Dee MD, MPH Work Phone: [facility] [place] Comment on above: Recurrent acute panc reatitis [...] 03-19-2021 End: 03-19-2021 ambulatory Marya Escotoy Other [employer] Other Start: 03-19-2021 Office outpatient visit 15 minutes Marya Almonte [facility] Start: 05-22-2020 End: 05-22-2020 Orders Only Izabela Grant Work Phone: [facility] Start: 03-26-2020 End: 03-26-2020 Emergency department patient visit [facility] ED Comment on above: Acute biliary pancre atitis, unspecified complication status (Primary Dx) Start: 08-22-2019 End: 08-25-2019 Evaluation and management of inpatient Rajeev Rudy Cantor [facility] Comment on above: Acute pancreatitis, unspecified complication status, unspecified pancreatitis type (Primary Dx); Pain of upper abdomen Start: 03-08-2018 End: 03-09-2018 Evaluation and management of inpatient [facility] Start: 03-04-2018 End: 03-04-2018 Patient encounter procedure [facility] Start: 03-04-2018 End: 03-04-2018 Emergency department patient visit Keerthi Nguyen Work Phone: [phone] [place] [address] Emergency Department Comment on above: Acute on chronic see creatitis (HCC) (Primary Dx) Start: 08-24-2017 End: 08-24-2017 Emergency department patient visit [facility] Start: 08-24-2017 End: 08-24-2017 Emergency department patient visit Errol Walton Work Phone: [phone] [place] [address] Emergency Department Start: 06-09-2017 End: 06-09-2017 Emergency department patient visit [facility] Start: 06-09-2017 End: 06-09-2017 Emergency department patient visit Joana Mohsen Rosalesle Work Phone: [phone] [place] [address] Emergency Department Start: 05-14-2017 End: 05-15-2017 Patient encounter procedure [facility] Start: 05-14-2017 End: 05-15-2017 Emergency department patient visit David Gibson Work Phone: [phone] [place] [address] Medical Observation Procedures Date Procedure Procedure Detail [...] Visit [facility] [address] [place], [place] [id number] Sabrina Dee MD, MPH [address] [place] [id number] General and Gastrointestinal Surgery Outpatient [facility] [place] Start: 11-08-2023 Influenza vaccination INFLUENZA VACCINE (#1) [facility] Start: 05-25-2023 End: 05-25-2023 Patient encounter procedure 05/25/2023 1:00 PM EDT Office Visit [facility] [address] [place] [address] Orlando Al MD [address] [place] [address] [facility] Start: 05-19-2023 End: 05-10-2024 UPPER EUS UPPER EUS GI/Bronch Routine Alcohol-induced chronic pancreatitis Expected: 05/19/2023, Expires: 05/10/2024 [facility] Comment on above: Expected: 05/19/2023, Expires: Start: 05-11-2023 End: 05-10-2024 VITAMIN D (25-HYDROXY,TOTAL) VITAMIN D (25-HYDROXY,TOTAL) Lab Routine Other osteoporosis without current pathological fracture Expected: 05/11/2023, Expires: 05/10/2024 [facility] Comment on above: Expected: 05/11/2023, Expires: 5 Start: 04-11-2023 Computed tomography of abdomen and pelvis with contrast CT abdomen pelvis w con [facility] Start: 04-11-2023 CT Abdomen and Pelvis W contrast IV [facility] Start: 03-16-2023 End: 03-16-2023 Patient encounter procedure 03/16/2023 Office Visit Gastroenterology Sabrina Dee MD, MPH [address] [place] [address] General and Gastrointestinal Surgery [facility] [place] Start: 11-07-2022 COVID-19 Vaccine ( season) COVID-19 Vaccine ( season) [facility] Start: 11-07-2022 Influenza vaccination [facility] Start: 09-25-2022 Lipid panel LIPID SCREENING [facility] Start: 07-29-2022 End: 06-17-2023 UPPER EUS UPPER EUS GI/Bronch Routine Alcohol-induced chronic pancreatitis Expected: 07/29/2022, Expires: 06/17/2023 [facility] Comment on above: Expected: 07/29/2022, Expires: 4 Start: 07-28-2022 End: 01-28-2023 Screening colonoscopy SCREENING COLONOSCOPY GI/Bronch Routine Encounter for screening colonoscopy Expected: 07/28/2022, Expires: 01/28/2023 [facility] Comment on above: Expected: 07/28/2022, Expires: 3 Start: 07-28-2022 End: 07-28-2022 Patient encounter procedure 07/28/2022 Appointment Endoscopy Julia Tyler MD [address] [address] [facility] Endoscopy Department Start: 06-16-2022 End: 12-16-2022 Screening colonoscopy SCREENING COLONOSCOPY GI/Bronch Routine Encounter for screening colonoscopy Expected: 06/16/2022, Expires: 12/16/2022 [facility] Comment on above: Expected: 06/16/2022, Expires: 3 Start: 06-16-2022 End: 06-16-2022 Patient encounter procedure 06/16/2022 Office Visit Gastroenterology Sabrina Dee MD, MPH [address] [place] [address] General and Gastrointestinal Surgery [facility] [place] Start: 03-22-2022 Bacteria identified in Urine by Culture [facility] Start: 01-28-2022 End: 01-28-2022 Patient encounter procedure 01/28/2022 Appointment Endoscopy Sabrina Dee MD, MPH [address] [place] [address] [facility] Start: 01-28-2022 Subsequent hospital visit by physician 01/28/2022 Hospital Encounter Endoscopy Sabrina Dee MD, MPH [address] [place] [address] Arrived [facility] Comment on above: Arrived Start: 01-14-2022 End: 12-16-2022 UPPER EUS UPPER EUS GI/Bronch Routine Recurrent acute pancreatitis Expected: 01/14/2022, Expires: 12/16/2022 [facility] Comment on above: Expected: 01/14/2022, Expires: 3 Start: 12-16-2021 End: 12-16-2022 Bone density scan BONE DENSITY AXIAL (HIP, PELVIS, SPINE) Imaging Routine Recurrent acute pancreatitis History of smoking 25-50 pack years Expected: 12/16/2021, Expires: 12/16/2022 [facility] Comment on above: Expected: 12/16/2021, Expires: 3 Start: 11-07-2021 Influenza vaccination INFLUENZA VACCINE (#1) [facility] Start: 10-09-2021 CT of abdomen and pelvis without contrast CT abdomen pelvis wo con [facility] Start: 10-09-2021 End: 10-09-2021 Emergency department patient visit Departed Emergency [facility] Start: 11-13-2020 COVID-19 VACCINE (3 - Booster for Pfizer series) COVID-19 VACCINE (3 - Booster for Pfizer series) [facility] Start: 11-08-2019 Influenza vaccination [place], [place] Start: 11-08-2019 Influenza vaccination given Sequential Influenza Vaccine (#1) [facility] Start: 06-21-2019 Administration of herpes zoster vaccine Zoster Vaccines (1 of 2) [facility] Start: 06-21-2019 Administration of varicella zoster vaccine Zoster (Shingles) Vaccine (1 of 2) [facility] Start: 06-21-2019 Screening for malignant neoplasm of breast Breast cancer screen [place], [place] Start: 06-21-2019 Screening for malignant neoplasm of colon [place] Start: 06-21-2019 Screening for malignant neoplasm of lung LUNG CANCER SCREENING [facility] Start: 06-21-2019 Shingles Vaccine (1 of 2) Shingles Vaccine (1 of 2) [place] Start: 06-21-2019 Zoster vaccine hzv live for subcutaneous use ZOSTER (SHINGLES) VACCINE (1 of 2) [facility] Start: 11-07-2017 Influenza vaccination [facility] Start: 11-07-2016 Influenza vaccination SEQUENTIAL INFLUENZA VACCINE (#1) [facility] Start: 12-10-2014 Screening for malignant neoplasm of cervix PAP SMEAR [facility] Start: 2014 Screening for malignant neoplasm of colon COLORECTAL CANCER SCREENING DISCUSSION [facility] Start: 01-01-2013 Screening for malignant neoplasm of breast MAMMOGRAM SCREENING DISCUSSION [facility] Start: 01-01-2013 Screening mammography Mammogram [facility] Start: 2009 Lipid panel Lipid screen [place], [place] Start: 1990 Screening for malignant neoplasm of cervix [facility] Start: 1988 DTaP,Tdap and Td Vaccines (1 - Tdap) DTaP,Tdap and Td Vaccines (1 - Tdap) [facility] Start: 1988 DTaP/Tdap/Td vaccine (1 - Tdap) DTaP/Tdap/Td vaccine (1 - Tdap) [place] Start: 1988 Hepatitis B vaccination HEP B VACCINE (1 of 3 - 19+ 3-dose series) [facility] Start: 1988 Third diphtheria, tetanus and acellular pertussis (DTaP) vaccination TDAP (ADULT) [facility] Start: 06-21-1987 Hepatitis C antibody, confirmatory test Hepatitis C Screening [facility] Start: 06-21-1987 Tetanus vaccination TETANUS [facility] Start: 1985 COVID-19 Vaccine (1 of 2) COVID-19 Vaccine (1 of 2) [facility] Start: 1984 HIV screening [facility] Start: 1981 Depression Screening Depression Screening [facility] Start: 06-21-1975 Pneumococcal 0-64 years Vaccine (1 of 1 - PPSV23) Pneumococcal 0-64 years Vaccine (1 of 1 - PPSV23) [place] Start: 06-21-1975 PNEUMOCOCCAL VACCINE SERIES (1 - PCV) PNEUMOCOCCAL VACCINE SERIES (1 - PCV) [facility] Start: 06-21-1975 PNEUMOCOCCAL VACCINE SERIES (1 of 2 - PCV) PNEUMOCOCCAL VACCINE SERIES (1 of 2 - PCV) [facility] Start: 1972 History and physical examination, annual for health maintenance Wellness Visit [facility] Start: 1969 Hepatitis B vaccination HEP B VACCINE (1 of 3 - 3-dose series) [facility] Start: 1969 Hepatitis C screening [facility] Start: 1969 Tetanus vaccination [facility] Start: 1969 Tobacco Counseling Tobacco Counseling [facility] CBC auto differential CBC auto d ifferential Lab Routine Daily until discontinued starting 08/23/2019, 3 completed [facility] JAMES Comment on above: Daily until discontinued starting 2019, [address] ABDOMEN PELVIS W IV CONTRAST Additional Contrast? None CT ABDOMEN PELVIS W IV CONTRAST Additional Contrast? None Imaging STAT 03/26/2020 3:01 PM EST [facility]AMES GILBERT IgG Subclasses IgG Subclasses A dd-On 05/14/2017 2:06 PM EST [facility] Initiate Oxygen Therapy Protocol Initiate Oxygen Therapy Protocol Respiratory Care Routine Daily until discontinued starting 08/22/2019 [facility] Comment on above: Daily until discontinued starting 2019 Lipase Lipase Lab Routi ne Daily until discontinued starting 08/23/2019, 3 completed [facility] AJMES Comment on above: Daily until discontinued starting 2019, 3 completed Patient Education [facility] Work Phone: Patient referral [facility] Work Phone: End: 08-22-2019 Pulse Oximetry Spot Check Pulse Oximetry Spot Check Respiratory Care Routine One Time for 1 Occurrences starting 08/22/2019 until 08/22/2019 [facility] Comment on above: One Time for 1 Occurrences starting 08/07 until 08/22/2019 Screening colonoscopy SCREENING COLONOSCOPY GI/Bronch Routine Encounter for screening colonoscopy 01/28/2022 9:43 AM [facility] Screening colonoscopy SCREENING COLONOSCOPY GI/Bronch Routine Encounter for screening for malignant neoplasm of colon Ordered: 05/11/2023 [facility] Comment on above: Ordered: 05/11/2023 Immunizations Immunization Date Immunization Notes Care Provider Fa joy 12-23-2015 influenza, injectabl e, quadrivalent, contains preservative Sabrina Dee MD, MPH Work Phone: [facility] 12-23-2015 influenza virus vaccine, unspecified formulation Sabrina Dee MD, MPH Work Phone: [facility] 12-15-2014 influenza virus vaccine, unspecified formulation Sabrina Dee MD, MPH Work Phone: [facility] Payers Date Payer Category Payer Self-pay [id number] 2022 [facility] MEDICA[facility] [id number] 2022-Present [phone] [address] [place] [address] [id number] 2019 Unknown [facility] xxxxxxxxxxx 2019-Present [phone] CLAIMS DEPARTMENT [address] [place] [address] xxxxxxxxxxx [id number]. [id number] 2017 Unknown [id number] 2017 Unknown 1969 Unknown [id number] 2.16.840.1.682860.3.579.2.900 1969 Unknown [id number] 2.16.840.1.968171.3.579.2.900 1969 Unknown [id number] 2.16.840.1.257693.3.579.2.900 1969 Unknown [id number] 2.16.840.1.966970.3.579.2.900 1969 Unknown [id number] 2.16.840.1.310359.3.579.2.900 1969 Unknown [id number] 2.16.840.1.450335.3.579.2.593 1969 Unknown [id number] 2.16.840.1.370641.3.579.2.593 1969 Unknown [id number] 2.16.840.1.067246.3.579.2.593 1969 Unknown [id number] 2.16.840.1.250888.3.579.2.593 1969 Unknown [id number] 2.16.840.1.466689.3.579.2.593 1969 Unknown [id number] 2.16.840.1.200650.3.579.2.593 1969 Unknown [id number] 2.16.840.1.090083.3.579.2.593 1969 Unknown [id number] 2.16.840.1.474091.3.579.2.593 1969 Unknown [id number] 2.16.840.1.938321.3.579.2.593 1969 Unknown [id number] 2.16.840.1.146437.3.579.2.593 1969 Unknown [id number] 2.16.840.1.385329.3.579.2.593 1969 Unknown [id number] 2.16.840.1.047131.3.579.2.593 1969 Unknown [id number] 2.16.840.1.023052.3.579.2.593 1969 Unknown [id number] 2.16.840.1.009621.3.579.2.593 1969 Unknown [id number] 2.16.840.1.284397.3.579.2.1286 1969 Unknown [id number] 2.16.840.1.800432.3.579.2.1285 1969 Unknown [id number] 2.16.840.1.769602.3.579.2.128 1969 Unknown [id number] 2.16.840.1.753029.3.579.2.1285 1969 Unknown [id number] 2.16.840.1.330394.3.579.2.128 1969 Unknown [id number] 2.16.840.1.418037.3.579.2.1285 1969 Unknown [id number] 2.16.840.1.256924.3.579.2.594 1969 Unknown [id number] 2.16.840.1.888201.3.579.2.594 1969 Unknown [id number] 2.16.840.1.844758.3.579.2.173 1959 Medicaid [id number] 1959 Unknown [id number] 1.2.840.746189.1.13.239.2.7.3. 642751.315 Unknown [id number] 2.16.840.1.220474.3.579.2.531 Unknown [id number] 2.16.840.1.848736.3.579.2.531 Unknown [id number] 2.16.840.1.558114.3.579.2.531 Unknown [id number] 2.16.840.1.193809.3.579.2.531 Social History Date Type Detail Facility Start: 06-09-2017 End: 12-16-2021 Tobacco smoking status VTIS Current every day smoker [facility] End: 10-30-2020 History of tobacco use Cigarette Smoker [facility] Start: 06-09-2017 End: 09-08-2023 Cigarettes smoked current (pack per day) - Reported [facility] Start: 1970 Sex Assigned At Not on file O [facility] Start: 08-22-2019 End: 09-08-2023 Alcohol intake Current non-drinker of alcohol (finding) [place] Exposure to SARS-CoV -2 (event) Unable to assess [place] Start: 03-08-2018 End: 12-16-2021 Tobacco use and exposure Never used [place] Start: 07-24-2014 Tobacco Comment Smokes < 1/2 p pd, smoker for 30+ years [facility] Start: 07-24-2014 Alcohol Comment Prior heavy dr carrillo, quit 8 years ago [facility] Start: 04-11-2023 End: 09-08-2023 Sex Assigned At [facility] Start: 09-25-2021 End: 04-18-2023 Tobacco smoking status NHIS Smoker (finding) [facility] Start: 1970 Sex Assigned At Female [facility] Start: 05-09-2016 Alcohol Comment been sober for 9 yea rs [facility] Start: 04-02-2023 Tobacco smoking stat us VTIS Current some day smoker [facility] Start: 06-25-2022 [facility] Start: 04-11-2023 End: 05-11-2023 Alcohol intake Ex-drinker (finding) [facility] Childcare Unknown [facility] Start: 06-25-2022 Alcohol Comment Has not consum ed alcohol in 12 years [facility] Gender identity Identifies as fe male gender (finding) [facility] Clinical Notes 10-08-2019 to 09-08-2023 Sabrina [...] female seen in the pre-procedure area at [facility]. The indication for endoscopic evaluation includes: Alcohol-induced chronic pancreatitis PAST MEDICAL HISTORY: Past Medical History: Diagnosis Date Anemia Depression H. pylori infection Neutrophilic leukocytosis Pancreatitis SURGICAL HISTORY: Past Surgical History: Procedure Laterality Date EGD W/ ULTRASOUND N/A 12/01/2019 Laterality: N/A; Surgeon: Sabrina Dee MD, MPH; Location: [facility] EGD W/ ULTRASOUND N/A 04/23/2016 Laterality: N/A; Surgeon: Pineda Troy MD; Location: [facility] EGD W/ ULTRASOUND N/A 01/23/2016 [...] 50,000 Units, Oral, WEEKLY Pancreatic enzymes (Creon) 02398-[address] units [address] Particles capsule 72,000 Units, Oral, 2 TIMES DAILY WITH MEALS Current Outpatient Medications: Ergocalciferol 1.25 MG (23809 UT) capsule, Take 1 capsule by mouth once a week., Disp: 8 capsule, Rfl: 0 Pancreatic enzymes (Creon) 96[address]-[address] Particles capsule, Take 3 [...] Monitored Anesthesia Care. Sabrina Dee MD, MPH [facility] 09-08-2023 History and physical note ENDOSCOPIC PREPROCEDURE HISTORY AND PHYSICAL HISTORY OF PRESENT ILLNESS: Chioma Rainey is a 53 y.o. female seen in the pre-procedure area at [facility]. The indication for endoscopic evaluation includes: Alcohol-induced chronic pancreatitis PAST MEDICAL HISTORY: Past Medical History: Diagnosis Date Anemia Depression H. pylori infection Neutrophilic leukocytosis Pancreatitis SURGICAL HISTORY: Past Surgical History: Procedure Laterality Date EGD W/ ULTRASOUND N/A 12/01/2019 Laterality: N/A; Surgeon: Sabrina Dee MD, MPH; Location: [facility] EGD W/ ULTRASOUND N/A 04/23/2016 Laterality: N/A; Surgeon: Pineda Troy MD; Location: [facility] EGD W/ ULTRASOUND N/A 01/23/2016 Laterality: N/A; Surgeon: Pineda Troy MD; Location: [facility] CHANGE TUBE GASTROSTOMY N/A 08/20/2015 Laterality: N/A; Surgeon: Yanni Alonzo MD; Location: [facility] EGD DIAGNOSTIC N/A 06/25/2015 Laterality: N/A; Surgeon: Pineda Troy MD; Location: [facility] EGD W/ PLACEMENT OR REPLACEMENT PEG N/A 06/15/2015 Laterality: N/A; Surgeon: Curry Newell MD; Location: [facility] EGD W/ INSERTION TUBE OR CATHETER N/A 06/13/2015 Laterality: N/A; Surgeon: Jose Ty MD; Location: [facility] EGD W/ ULTRASOUND N/A 02/14/2015 Laterality: N/A; Surgeon: Pineda Troy MD; Location: [facility] CHOLECYSTECTOMY CHOLECYSTECTOMY, LAPAROSCOPIC HYSTERECTOMY MEDICATIONS: Current Outpatient Medications Medication Instructions Ergocalciferol (VITAMIN D2) 50,000 Units, Oral, WEEKLY Pancreatic enzymes (Creon) 56418-[address] Particles capsule 72,000 Units, Oral, 2 TIMES DAILY WITH MEALS Current Outpatient Medications: Ergocalciferol 1.25 MG (18075 UT) capsule, Take 1 capsule by mouth once a week., Disp: 8 capsule, Rfl: 0 Pancreatic enzymes (Creon) 90685-[address] units [address] Particles capsule, Take 3 [...] Dee MD, MPH documented in this encounter [facility] 09-08-2023 Miscellaneous Notes RN and educated pt on DC instructions, pt verbalized understanding. IV removed per protocol. documented in this encounter [facility] 09-08-2023 Nurse Note Stefano educated pt on DC instructions, pt verbalized understanding. IV removed per protocol. [facility] 05-22-2023 Miscellaneous Notes Called patient to remind them to bring their most current copy of their medication list with them to their appt. Patient verbalizes understanding. [facility] Telephone encounter Note Called patient to remind them to bring their most current copy of their medication list with them to their appt. Patient verbalizes understanding. [facility] 05-11-2023 History of Presen t illness Narrative This Bagel Maker verified the patients name and date of [...] for pain management 5. Prior evaluation at [facility] for TPIAT and was not a [...] (human immunodeficiency virus infection), Hyperlipidemia, Hyperthyroidism, Hypothyroidism, VA (myocardial infarction), Migraine, PEGGY (obstructive sleep apnea), [...] includes the following prescription(s): Pancreatic enzymes (Creon) [address] Particles capsule and Ergocalciferol 1.25 MG (24734 UT) capsule. Allergies: She is allergic to [...] Hepatology, and Nutrition documented in this encounter [facility] 05-11-2023 Instructions Sabrina Dee MD, MPH [...] celiac plexus block documented in this encounter [facility] 04-16-2023 Miscellaneous Notes Pt called requesting to schedule a new patient appt. Referral is in media from [employer] A good phone number to reach the pt: [phone] Referral in media was to [facility] so pt has no referral to nephrology. LM informing pt she would need to have her referring provider fax us over a referral and then I could schedule her a new pt appt. [facility] Telephone encounter Note Pt called requesting to schedule a new patient appt. Referral is in media from [employer]. A good phone number to reach the pt: [phone] [facility] 04-16-2023 Telephone encounter Note Referral in media was to [facility] so pt has no referral to nephrology. LM informing pt she would need to have her referring provider fax us over a referral and then I could schedule her a new pt appt. [facility]-16-[facility]23 Miscellaneous Notes LMOM for the patient to call and schedule their new pt appointment with [facility]. [facility]-16[facility]2023 Telephone encounter Note LMOM for the patient to call and schedule their new pt appointment with [facility]. [facility] 08-12-2022 History and physical note ENDOSCOPIC [...] W/ ULTRASOUND N/A 12/01/2019 Laterality: N/A; Surgeon: aSbrina Dee MD, MPH; Location: [facility] EGD [...] 20 mg, Oral, DAILY Pancreatic enzymes (Creon) [address] Particles capsule 48,000 Units, Oral, 3 TIMES DAILY WITH MEALS Current Outpatient Medications: omeprazole [address] capsule, Take 1 capsule by mouth daily., Disp: 30 capsule, Rfl: 6 amitriptyline 10 MG tablet, Take 2.5 tablets by mouth at bedtime., Disp: 30 tablet, Rfl: 11 ergocalciferol 1.25 MG (64722 UT) capsule, Take 1 capsule by mouth once a week for 8 doses., Disp: 8 capsule, Rfl: 0 Pancreatic enzymes (Creon) 90919-[address] Particles capsule, Take 2 [...] Monitored Anesthesia Care. Sabrina Dee MD, MPH [facility] 08-12-2022 History and physical note ENDOSCOPIC PREPROCEDURE HISTORY AND PHYSICAL HISTORY OF PRESENT ILLNESS: Chioma Rainey is a 52 y.o. female seen in the pre-procedure area at [facility]. The indication for endoscopic evaluation includes: Alcohol-induced chronic pancreatitis PAST MEDICAL HISTORY: Past Medical History: Diagnosis Date Anemia Depression H. pylori infection Neutrophilic leukocytosis Pancreatitis SURGICAL HISTORY: Past Surgical History: Procedure Laterality Date EGD W/ ULTRASOUND N/A 12/01/2019 Laterality: N/A; Surgeon: Sabrina Dee MD, MPH; Location: [facility] EGD W/ ULTRASOUND N/A 04/23/2016 Laterality: N/A; Surgeon: Pineda Troy MD; Location: [facility] EGD W/ ULTRASOUND N/A 01/23/2016 Laterality: N/A; Surgeon: Pineda Troy MD; Location: [facility] CHANGE TUBE GASTROSTOMY N/A 08/20/2015 Laterality: N/A; Surgeon: Yanni Alonzo MD; Location: [facility] EGD DIAGNOSTIC N/A 06/25/2015 Laterality: N/A; Surgeon: Pineda Troy MD; Location: [facility] EGD W/ PLACEMENT OR REPLACEMENT PEG N/A 06/15/2015 Laterality: N/A; Surgeon: Curry Newell MD; Location: [facility] EGD W/ INSERTION TUBE OR CATHETER N/A 06/13/2015 Laterality: N/A; Surgeon: Jose Ty MD; Location: [facility] EGD W/ ULTRASOUND N/A 02/14/2015 Laterality: N/A; Surgeon: Pineda Troy MD; Location: [facility] CHOLECYSTECTOMY CHOLECYSTECTOMY, LAPAROSCOPIC HYSTERECTOMY MEDICATIONS: Current Outpatient Medications Medication Instructions Amitriptyline (ELAVIL) 25 mg, Oral, DAILY AT BEDTIME Ergocalciferol (VITAMIN D2) 50,000 Units, Oral, WEEKLY omeprazole (PRILOSEC) 20 mg, Oral, DAILY Pancreatic enzymes (Creon) 17[address] Particles capsule 48,000 Units, Oral, 3 TIMES DAILY WITH MEALS Current Outpatient Medications: omeprazole [address] capsule, Take 1 capsule by mouth daily., Disp: 30 capsule, Rfl: 6 amitriptyline 10 MG tablet, Take 2.5 tablets by mouth at bedtime., Disp: 30 tablet, Rfl: 11 ergocalciferol 1.25 MG (14767 UT) capsule, Take 1 capsule by mouth once a week for 8 doses., Disp: 8 capsule, Rfl: 0 Pancreatic enzymes (Creon) 304[address] Particles capsule, Take 2 [...] MD, MPH documented in this encounter [facility] 08-12-2022 Nurse Note PT Given discharge paperwork and reviewed per MD and nurse. Brake Repairer Air available.Diet and restrictions reviewed as well. Venous access removed no complications noted. Ok to d/c Anesthesia and procedural . documented in this encounter [facility] 08-12-2022 Nurse Surgical operation note PT Given discharge paperwork and reviewed per MD and nurse. Brake Repairer Air available.Diet and restrictions reviewed as well. Venous access removed no complications noted. Ok to d/c Anesthesia and procedural . [facility] History of Presen t illness Narrative This Bagel Maker verified the patients name and date of [...] for pain management 5. Prior evaluation at [facility] for TPIAT and was not a candidate 6. Last CT was at [facility] in 05/2019: No calcification in the [...] (human immunodeficiency virus infection), Hyperlipidemia, Hyperthyroidism, Hypothyroidism, VA (myocardial infarction), Migraine, PEGGY (obstructive sleep apnea), [...] amitriptyline 10 MG tablet, ergocalciferol 1.25 MG (84631 UT) capsule, and Pancreatic enzymes (Creon) 13902-[address] units [address] Particles capsule. Allergies: She [...] Hepatology, and Nutrition documented in this encounter [facility] 06-16-2022 Instructions Sabrina Dee MD, MPH - 06/16/2022 11:00 AM EDT Schedule EUS celiac plexus block; EGD dilation Referral to endocrinology; appointment to be scheduled Return to clinic in Mar 2023 Smoking cessation Vitamin D 2000 units daily Calcium supplement 1 gram daily Omeprazole (Prilosec) 20mg daily, take at least 30 mins before dinner documented in this encounter [facility] 01-28-2022 Miscellaneous Notes Attending physician in room speaking with patient and family on results. Attending physician ok for discharge. Pt ambulated unassisted with steady gait and balance. IV removed and discharge instructions given with verbal ok by patient of understanding. Pt discharged via w/c with delivery driver/supervisor from unit. Dr dee aware patient ready for results Updated dr goins on patient pain and received new orders documented in this encounter [facility] 01-28-2022 Note Formatting of this n ote might be different from the original. Attending physician in room speaking with patient and family on results. Attending physician ok for discharge. Pt ambulated unassisted with steady gait and balance. IV removed and discharge instructions given with verbal ok by patient of understanding. Pt discharged via w/c with delivery driver/supervisor from unit. [facility] 01-28-2022 Note Formatting of this n ote might be different from the original. Dr dee aware patient ready for results [facility] 01-28-2022 Note Formatting of this n ote might be different from the original. Updated dr goins on patient pain and received new orders [facility] 01-28-2022 History and physical note ENDOSCOPIC PREPROCEDURE HISTORY AND PHYSICAL HISTORY OF PRESENT ILLNESS: Chioma Rainey is a 51 y.o. female seen in the preoprocedure area at [facility] END[facility]COPY. The indication for endoscopic evaluation [...] 50,000 Units, Oral, WEEKLY Pancreatic enzymes (Creon) 09845-[address] units [address] Particles capsule 48,000 Units, Oral, 3 TIMES DAILY WITH MEALS Current Outpatient Medications: amitriptyline 10 MG tablet, Take 2.5 tablets by mouth at bedtime., Disp: 30 tablet, Rfl: 11 Pancreatic enzymes (Creon) 66306-[address] Particles capsule, Take 2 capsules by mouth 3 times daily with meals., Disp: 180 capsule, Rfl: 0 ergocalciferol 1.25 MG (68176 UT) capsule, Take 1 capsule by mouth [...] Monitored Anesthesia Care. Sabrina Dee MD, MPH [facility] 01-28-2022 History and physical note ENDOSCOPIC PREPROCEDURE HISTORY AND PHYSICAL HISTORY OF PRESENT ILLNESS: Chioma Rainey is a 51 y.o. female seen in the preoprocedure area at [facility]. The indication for endoscopic evaluation [...] 50,000 Units, Oral, WEEKLY Pancreatic enzymes (Creon) [address] Particles capsule 48,000 Units, Oral, 3 TIMES DAILY WITH MEALS Current Outpatient Medications: amitriptyline 10 MG tablet, Take 2.5 tablets by mouth at bedtime., Disp: 30 tablet, Rfl: 11 Pancreatic enzymes (Creon) [address] Particles capsule, Take 2 capsules by mouth 3 times daily with meals., Disp: 180 capsule, Rfl: 0 ergocalciferol 1.25 MG (89782 UT) capsule, Take 1 capsule by mouth [...] MD, MPH documented in this encounter [facility] 12-16-2021 History of Presen t illness Narrative [...] for pain management 5. Prior evaluation at [facility] for TPIAT and was not a candidate 6. Last CT was at [facility] in 05/2019: No calcification in the [...] (human immunodeficiency virus infection), Hyperlipidemia, Hyperthyroidism, Hypothyroidism, VA (myocardial infarction), Migraine, PEGGY (obstructive sleep apnea), [...] 10 MG tablet and Pancreatic enzymes (Creon) [address] Particles capsule. Allergies: She [...] in 6 months documented in this encounter [facility] 12-16-2021 Instructions Sabrina Dee MD, MPH - 12/16/2021 11:30 AM EDT Schedule DEXA scan Schedule colonoscopy Schedule EUS Start vitamin D 1,000 units daily. Start calcium supplements 1g daily RTC in 6 months documented in this encounter [facility] 03-19-2021 Evaluation note Encounter Date Diagnosis [...] care instructions given in writting by [facility] Care At Home document Call[employer] Other 08-01-2020 History general Narrative - Reported* Type Description Date Medical History chronic pancreatitis Medical History chronic pain Medical History former alcoholic Surgical History [facility]d- [facility] Surgical History GALLBLADDER Surgical History COLON-[facility] Hospitalization History see above Call[employer] Other Evaluation noteNo assessment information available [facility] Work Phone: Evaluation note* Diagnosis Recurrent acute pancreatitis- Primary Acute pancreatitis History of smoking 25-50 pack years Alcohol-induced chronic pancreatitis Chronic pancreatitis Epigastric pain Abdominal pain, epigastric Encounter for screening colonoscopy Special screening for malignant neoplasms, colon [facility] Diagnosis Recurrent acute pancreatitis Acute pancreatitis History of smoking 25-50 pack years Encounter for screening colonoscopy Special screening for malignant neoplasms, colon [facility] Diagnosis Other osteoporosis without current pathological fracture- Primary Recurrent acute pancreatitis Acute pancreatitis Encounter for screening colonoscopy Special screening for malignant neoplasms, colon [facility] Diagnosis Encounter for screening colonoscopy Special screening for malignant neoplasms, colon [facility] Diagnosis Osteoporosis without current pathological fracture, unspecified osteoporosis type- Primary Alcohol-induced chronic pancreatitis Chronic pancreatitis [facility] Diagnosis Alcohol-induced chronic pancreatitis Chronic pancreatitis [facility] Diagnosis Alcohol-induced chronic pancreatitis- Primary Chronic pancreatitis Encounter for screening for malignant neoplasm of colon Special screening for malignant neoplasms, colon Other osteoporosis without current pathological fracture Epigastric pain Abdominal pain, epigastric Smoking Tobacco use disorder Gastroesophageal reflux disease without esophagitis Esophageal reflux [facility] Diagnosis Alcohol-induced chronic pancreatitis Chronic pancreatitis [facility] Additional Instructions Fluids Phenergan if needed for nausea vomiting Bentyl as needed for abdominal pain Follow-up with your GI specialist call Thursday for appointment Return here if any problems persist or worsen [facility] Work Phone: Hospital Discharge instructions Additional [...] Log into your personal health record on [email or web address] and enter E907 in the Education box to learn more about Abdominal Pain: Care Instructions. Current as of: August 03, 2015 Content Version: 11.2 2258-9755 Fineline. Care instructions adapted under license by your healthcare professional. If you have questions about a medical condition or this instruction, always ask your healthcare professional. [employer] disclaims any warranty or liability for your [...] Log into your personal health record on [email or web address] and enter H591 in the Education box to learn more about Nausea and Vomiting: Care Instructions. Current as of: August 03, 2015 Content Version: 11.2 1798-7901 Fineline. Care instructions adapted under license by your healthcare professional. If you have questions about a medical condition or this instruction, always ask your healthcare professional. [employer] disclaims any warranty or liability for your use of this information. Please review regarding your visit: Please note that your blood pressure during this ER visit was above 120/80 mmHg. YOUR BP READING WAS: 111/88 The [place] Heart Association (AHA) defines a normal blood [...] review at your convenience for more information: [email or web address] in this encounter* Discharge Instr - Other Orders - Poncho Sparks RN - 05/15/2017 1:20 PM EST Patient voices desire to leave hospital AMA. IV removed. Patient is ambulatory in care of spouse. [facility] hospitalist notified. in this encounter* Montse Khan CNP - 08/24/2017 Seek medical attention if you have worsening symptoms or other concerns. Please follow up with your family doctor or one of your choosing. You may find a provider through the [facility] Physician Referral Service by calling [employer] ([phone]) or by visiting [email or web address] Chioma, Thank You for choosing [facility]! The following attachments cannot be sent through Care Everywhere. * Nausea and Vomiting (Iraqi) * Gastroenteritis (Iraqi) * Diarrhea (Iraqi) in this encounter The following attachments cannot be sent through Care Everywhere. * Pancreatitis (Iraqi) in this encounter* Instructions* Laura Meyer, RN - 08/25/2019 Patient Instructions: Activity: activity as tolerated Diet: encourage fluids GI specialist in 2 weeks. * Attachments The following attachments cannot be sent through Care Everywhere. * Pancreatitis: Chronic Diet (Iraqi) * Pancreatitis (Iraqi) documented in this encounter Assessments Diagnosis Epigastric [...] FoundDocuments on File Type Date Recorded Patient Crt Expl anation Advance Directives and Living Will Power of Artificial Marble Worker Latest Code Status on File Code Status Date Activated Date Inactivated Comments Full Code 08/22/2019 4:27 PM Documents on File Type Date Recorded Patient Crt Expl anation Advance Directives and Livin g [...] Documents on File Type Date Recorded Patient Crt Expl anation ACP-Advance Directive ACP-Power of Artificial Marble Worker Latest Code Status on File Code Status [...] toradol is contraindicated. Called Dr. Hughes back, publications writer explained that patient is tolerating dilaudid. Dr. Hughes ordered dose of dilaudid increased from 0.25 mg to 0.5 mg q4 hrs PRN. * Ladan Stearns RN - 08/24/2019 1:27 PM EDT Patient walking in hallway at this time. * Ladan Stearns RN - 08/24/2019 9:14 AM EDT Machine Erector to patients bedside at this time to reassess pain. Patient sitting in chair, appears restless and is tearful. Patient states Dilaudid did not help the pain, states there is nothing publications writer can do as she deals with [...] Scheduled for EGD in September with her Research Program Internship at [facility] Discharge Planning -- Home when stable Carley Camara APRN, PACKAGER HAND-C Associated attestation - Rajeev Cantor MD - 08/24/2019 5:30 PM EDT Attending Supervising Physician s Attestation Statement I have personally evaluated and examined the patient [id number] in conjunction with the nurse practitioner. I [...] Examined and Reviewed plan of care with PACKAGER HAND. Directions and discussion about care and plans. [...] Birmingham RN - 08/23/2019 4:40 PM EDT Machine Erector contacted Dr. Cantor regarding update that patient [...] he would not give order for Benedryl. Machine Erector let nurse know that if patient's c/o ithcing and redness doesn't improve in an hour, that publications writer will be calling back to update physician. * Brie Birmingham RN - 08/23/2019 3:20 PM EDT Machine Erector called into patient's room d/t patient c/o itching, feeling hot , and slight redness noted to BUE and face. Machine Erector contacted Dr. Cantor office and left message with his nurse, asking for IV Benedryl and d/c of Lovenox. Patient thinks she may have had reaction to Lovenox in the past, and thatis the only other med she is currently taking here other than Dilaudid. Machine Erector did once again verify that patient usually [...] medically stable. Patient lives with her in [place]. She uses no DME and has no outside services currently in place. Patient provides for her own transportation needs and manages her medications. She is independent with her ADL's. PCP is [facility]. [facility] and denies needing further assistance with the cost of her medications. Discharge plan is home with no additional services at this time. Patient is a 'Full Code' status. She has no healthcare directives and voices that she is not interested in pursuing these documents further. BOX MACHINE OPERATOR to monitor and assist with discharge planning [...] Birmingham RN - 08/23/2019 9:05 AM EDT Machine Erector made LABORER WHARF aware that patient is vomiting at this time since clear liquid diet added. Machine Erector to give Zofran and place patient back [...] weight loss, but states of weight gain. [id number] Discussed need to re-zero Pt bed to verify gain. She declined education needs states she has a GI doctor and RDN at the [facility]. Reports following the guidelines they recommended. States [...] 5. Fluid Accumulation-No significant fluid accumulation, 6. Unit Manager Strength-Not measured Nutrition Risk Level: Moderate Nutrient Needs: Estimated Daily Total Kcal: 5089-6987(20-23/kg) Estimated Daily Protein (g): 65-75g(1.3-1.5g/kg) Estimated Daily [...] weight gain/23%, recommend to re-zero Pt bed [place] Body Wt: 110 lb (49.9 kg), % [place] Body 129% BMI Classification: BMI 25.0 - [...] Nausea or Vomiting, Patient/Family Education Contact Number: [phone] * Carley Camara APRN - NAOMY - [...] Daily Discharge Plan--later today/tomorrow Carley Camara APRN, PACKAGER HAND-C Associated attestation - Rajeev Cantor MD - 08/23/2019 12:04 PM EDT Attending Supervising Physician s Attestation Statement I have personally evaluated and examined the patient [id number] in conjunction with the nurse practitioner. I [...] Examined and Reviewed plan of care with PACKAGER HAND. Directions and discussion about care and plans. [...] [facility]t ED in process of running a code on another patient; gambling supervisor states that report will be called when able. Machine Erector unable to get ahold of staff inED to put patient in technical programs manager so that publications writer can transfer [facility]. Will try again shortly. documented in this [...] Diagnoses Alcohol-induced chronic pancreatitis Procedures UPPER EUS NJ ESOPHAGOGASTRODUODENOSCOPY US SCOPE W/ADJ STRXRS Sabrina Dee MD, MPH [address] [place] [phone] Referral ID Status Reason Start Date Expiration Date V isits Requested Visits Authorized [id number] New Request 06/16/2022 07/11/2023 1 1 Specialty Diagnoses / Procedures Referred By Contac t Referred To Contact Endocrinology, Diabetes & Metabolism Diagnoses Osteoporosis without current pathological fracture, unspecified osteoporosis type Sabrina Dee MD, MPH [address] [place] [phone] Referral ID Status Reason Start Date Expiration Date V isits Requested Visits Authorized [id number] New Request 06/16/2022 07/11/2023 1 1 Specialty Diagnoses / Procedures Referred By Contac t Referred To Contact Diagnoses Encounter for screening colonoscopy Procedures SCREENING COLONOSCOPY NJ COLON CA SCRN NOT HI RSK IND Sabrina Dee MD, MPH [address] [place] [phone] Referral ID Status Reason Start Date Expiration Date V isits Requested Visits Authorized [id number] New Request 12/16/2021 01/10/2023 1 1 Specialty Diagnoses / Procedures Referred By Contac t Referred To Contact Diagnoses Recurrent acute pancreatitis History of smoking 25-50 pack years Procedures BONE DENSITY AXIAL (HIP, PELVIS, SPINE) Sabrina Dee MD, MPH [address] [place] [phone] Referral ID Status Reason Start Date Expiration Date V isits Requested Visits Authorized [id number] New Request 12/16/2021 01/10/2023 1 1 Specialty Diagnoses / Procedures Referred By Contac t Referred To Contact Diagnoses Recurrent acute pancreatitis Procedures UPPER EUS NJ EGD US GUIDED TRANSMURAL INJXN/FIDUCIAL MARKER Sabrina Dee MD, MPH [address] [place] [phone] Referral ID Status Reason Start Date Expiration Date V isits Requested Visits Authorized [id number] New Request 12/16/2021 01/10/2023 1 1 Additional [...] the patient. I discussed the patient with PACKAGER HAND/PA. I agree with the PACKAGER HAND/PA treatment plan. I agree with the PACKAGER HAND/PA plan of care. I agree with the PACKAGER HAND/PA dispo as documented. 46-year-old female presents with abdominal pain. She states I have chronic pancreatitis and this feels like a flareup . 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 ED PROVIDER NOTE [facility] NAME: Chioma Rainey AGE: 46 y.o. : 1970 VISIT DATE: 06/09/2017 CSN: [id number] PCP: Alexander Nichols MD Chief Complaint Patient [...] Phenergan suppository. She states that she took Savannah last night. Last dose of Savannah was around 9 PM last night. She [...] Procedure: EGD; Surgeon: Romain Dumont MD; Location: [facility]; Service: HYSTERECTOMY ORIF PELVIS ORTHOPEDIC SURGERY [...] Yellow Clarity, Urine Cloudy (A) Clear Specific [place] 1.024 1.005 - 1.025 pH, Urine 5.0 [...] Phenergan suppositories. She has follow-up with her auto suspension and steering mechanic at [facility] in 2 weeks. Do not feel [...] 1. Pineda Troy MD. Specialty: Gastroenterology 0 [facility] [address] [address] Contact information for after-discharge care Follow-up information [...] her back. Pt has been taking prescribed Savannah without relief and states she has been vomiting.in this encounter I personally interviewed the patient. I personally examined the patient. I discussed the patient with PACKAGER HAND/PA. I agree with the PACKAGER HAND/PA treatment plan. I agree with the PACKAGER HAND/PA plan of care. I agree with the PACKAGER HAND/PA dispo as documented. I saw evaluate this [...] different from the original. ED PROVIDER NOTE [facility] NAME: Chioma Rainey AGE: 46 y.o. : 1970 VISIT DATE: 05/14/2017 CSN: [id number] PCP: Alexander Nichols MD Chief Complaint Patient [...] Procedure: EGD; Surgeon: Romain Dumont MD; Location: [facility]; Service: HYSTERECTOMY ORIF PELVIS ORTHOPEDIC SURGERY [...] Colorless, Yellow Clarity, Urine Clear Clear Specific [place] 1.006 1.005 - 1.025 pH, Urine 5.0 [...] in the left lower pelvis. Workstation ID: [id number] Procedures MDM This is a 46-year-old female [...] 05/14/17 2100 In[address] Duncan Zepeda PA-C 05/14/17 2389 IV access attempted x 1 unsuccessful . [...] different from the original. ED PROVIDER NOTE [facility] NAME: Chioma Rainey AGE: 47 y.o. : 1970 VISIT DATE: 08/24/2017 CSN: [id number] PCP: Alexander Nichols MD Chief Complaint Patient [...] Procedure: EGD; Surgeon: Romain Dumont MD; Location: [facility]; Service: HYSTERECTOMY ORIF PELVIS ORTHOPEDIC SURGERY [...] Yellow Clarity, Urine Hazy (A) Clear Specific [place] 1.006 1.005 - 1.025 pH, Urine 7.0 [...] probably remain. 5. Small left adrenal adenoma. [employer] Workstation ID: [id number] Procedures MDM 47-year-old female [...] she did vomit. She was then given NJ Phenergan and a dose of Toradol. She [...] Medicine Why: follow up ER visit [address] [address] Contact information for after-discharge care Follow-up information [...] the patient. I discussed the patient with PACKAGER HAND/PA. I agree with the PACKAGER HAND/PA treatment plan. I agree with the PACKAGER HAND/PA plan of care. I agree with the PACKAGER HAND/PA dispo as documented. Formatting of this note may be different from the original. ED PROVIDER NOTE [facility] NAME: Chioma Rainey AGE: 47 y.o. : 1970 VISIT DATE: 03/04/2018 CSN: [id number] PCP: Alexander Nichols MD Chief Complaint Patient [...] Procedure: EGD; Surgeon: Romain Dumont MD; Location: [facility]; Service: HYSTERECTOMY ORIF PELVIS ORTHOPEDIC SURGERY [...] Colorless, Yellow Clarity, Urine Clear Clear Specific [place] 1.004 (L) 1.005 - 1.025 pH, Urine [...] Condition Comment Hospitalize Attending Provider or Group: [facility] [[id number]] Phone call required?: No Follow-up Information Follow-up [...] different from the original. Alirio Negro MD [facility] Hospitalists History and Physical Patient Name:Chioma Rainey MR #:[id number] :1970 Admit Date: [id number] Physicians: Alexander Nichols MD (Family); No ref. [...] Procedure: EGD; Surgeon: Romain Dumont MD; Location: [facility]; Service: HYSTERECTOMY ORIF PELVIS ORTHOPEDIC SURGERY [...] Diagnoses Acute recurrent pancreatitis Rajeev Cantor MD [address] [place] [address], [place] [address] [facility] Reason Comments Abdominal Pain Pt c/o abdominal [...] SPINE) Sabrina Dee MD, MPH [address] [place] [phone] Referral ID Status Reason Start Date Expiration Date V isits Requested Visits Authorized [id number] New Request 12/16/2021 01/10/2023 1 1 Specialty Diagnoses / Procedures Referred By Zia t Referred To Contact Diagnoses Recurrent acute pancreatitis Procedures UPPER EUS NJ EGD US GUIDED TRANSMURAL INJXN/FIDUCIAL MARKER Sabrina Dee MD, MPH [address] [place] [phone] Referral ID Status Reason Start Date Expiration Date V isits Requested Visits Authorized [id number] New Request 12/16/2021 01/10/2023 1 1 Specialty Diagnoses / Procedures Referred By Zia t Referred To Contact Diagnoses Encounter for screening colonoscopy Procedures SCREENING COLONOSCOPY NJ COLON CA SCRN NOT HI RSK IND Sabrina Dee MD, MPH [address] [place] [phone] Referral ID Status Reason Start Date Expiration Date V isits Requested Visits Authorized [id number] New Request 12/16/2021 01/10/2023 1 1 Reason Comments Follow-up 6 month follow up Specialty Diagnoses / Procedures Referred By Zia t Referred To Contact Diagnoses Alcohol-induced chronic pancreatitis Procedures UPPER EUS [place] ESOPHAGOGASTRODUODENOSCOPY US SCOPE W/ADJ STRXRS Sabrina Dee MD, MPH [address] [place] [phone] Referral ID Status Reason Start Date Expiration Date V isits Requested Visits Authorized [id number] New Request 06/16/2022 07/11/2023 1 1 Reason Comments Follow-up Specialty Diagnoses / Procedures Referred By Zia espinal Referred To Contact Diagnoses Alcohol-induced chronic pancreatitis Procedures UPPER EUS [place] EGD US GUIDED TRANSMURAL INJXN/FIDUCIAL MARKER Sabrina Dee MD, MPH [address] [place] [address] Referral ID Status Reason Start Date Expiration Date V isits Requested Visits Authorized [id number] New Request 05/11/2023 06/04/2024 1 1 INFORMATION SOURCE (unrecogn ized section and content) DATE CREATED AUTHOR 03/09/2018 [facility] DATE CREATED AUTHOR AUTHOR'S ORGANIZ ATION 04/08/2021 [facility] DATE CREATED AUTHOR AUTHOR'S ORGANIZ ATION 06/18/2022 [facility] DATE CREATED AUTHOR AUTHOR'S ORGANIZ ATION 04/12/2023 [facility] DATE CREATED AUTHOR AUTHOR'S ORGANIZ ATION 09/02/2023 [facility] DATE CREATED AUTHOR AUTHOR'S ORGANIZ ATION 09/09/2023 [facility] DATE CREATED AUTHOR AUTHOR'S ORGANIZ ATION 10/02/2023 [facility] Care Teams (unrecognized sec tion [...] Active Christa Lopez PA-C Emergency Provider Active 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 Start Date End Date Pineda rToy MD [address] [place] [phone] PCP - Referring 1 Gastroenterology 09/25/17 [facility] [address] [place] [address] PCP - General 11/28/19 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 Start Date End Date Pineda Troy MD [address] [place] [phone] PCP - Referring 1 Gastroenterology 09/25/17 [facility], Other [address] [facility] [place] [address] PCP - General 11/28/19 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 Start Date End Date Pineda Troy MD [address] [place] [phone] PCP - Referring 1 Gastroenterology 09/25/17 [facility], Other [address] [facility] [place] [address] PCP - General 11/28/19 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 Start Date End Date Pineda Troy MD [address] [place] [phone] PCP - Referring 1 Gastroenterology 09/25/17 [facility] [address] [facility] [place] [address] PCP - General 11/28/19 Team Status: Inactive Member Role Status Dates NON STAFF Primary Care Provider Active Agustin Llanes MD Emergency Provider Active 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 Start Date End Date Pineda Troy MD [address] [place] [phone] PCP - Referring 1 Gastroenterology 09/25/17 [facility] [address] [facility] [place] [address] PCP - General 11/28/19 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 Start Date End Date Pineda Troy MD [address] [place] [phone] PCP - Referring 1 Gastroenterology 09/25/17 [facility], Other [address] [place] [address] PCP - General 11/28/19 Team Status: Inactive [...] April 11, 2023 End: April 12, 2023 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 Start Date End Date [facility] [address] [place], [place] PCP - General Family Medicine 03/26/23 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 Start Date End Date [facility] [address] [place], [place] PCP - General Family Medicine 03/26/23 Team Status: Inactive Member Role Status Dates NON STAFF Primary Care Provider Active Start: April 18, 2023 End: April 18, 2023 Xiang Kellogg MD Emergency Provider Active Star t: April 18, 2023 End: April 18, 2023 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 Start Date End Date Pineda Troy MD [address] [place] [phone] PCP - Referring 1 Gastroenterology 09/25/17 [facility], [facility] [address] [place] [address] PCP - General 11/28/19 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 Start Date End Date [facility] [address] [place], [place] PCP - General Family Medicine 03/26/23 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 Start Date End Date Pineda Troy MD PCP - Referring 1 Gastroenterology 09/25/17 [facility], Other [address] [place] [phone] PCP - General 11/28/19 Goals (unrecognized section [...] BE BASED ON THE PRIMARY CLINICAL RECORDS. [employer] provides no warranty or guarantee of the accuracy or completeness of information in this document.
--- NOTE | 2023-12-23 05:24 | ED.ABDPAIN1 ---
HPI - Abdominal Pain General Chief Complaint: Abdominal Pain Stated Complaint: FLANK ABD PAIN Time Seen by Provider: 12/23/23 05:20 Source: patient Mode of arrival: walk-in Limitations: no limitations History of Present Illness HPI narrative: patient presents complaining of flare up of pancreatitis. complains of vomiting and diarrhea. no fever , chest pain or dyspnea. states she is followed with GI at [facility]. States last seen there 4 months ago Related Data Home Medications ?Medication ?Instructions ?Recorded ?Confirmed albuterol sulfate 90 mcg/actuation 2 puff inhalation Q6H PRN 12/11/23 12/11/23 aerosol inhaler shortness of breath or wheezing Allergies Allergy/AdvReac Type Severity Reaction Status Date / Time haloperidol (From Haldol) Allergy Intermediate Hives Verified 12/11/23 17:21 ibuprofen (From Motrin) Allergy Intermediate Hives Verified 12/11/23 17:21 tramadol Allergy Intermediate Hives Verified 12/11/23 17:21 Penicillins Allergy Unknown Anaphylaxis Verified 12/11/23 17:21 ketorolac (From Toradol) AdvReac Severe Hives Verified 12/11/23 17:21 fentanyl AdvReac Intermediate Hives Verified 12/11/23 17:21 Review of Systems ROS Status of ROS 10 or more systems reviewed and unremarkable except as noted in history and below [facility] Medical History (Updated 12/23/23 @ 06:41 by Catarino Odonnell MD) COPD (chronic obstructive pulmonary disease) ?J44.9 - Chronic obstructive pulmonary disease, unspecified (ICD-10) Chronic pancreatitis ?K86.1 - Other chronic pancreatitis (ICD-10) Smoker ?F17.200 - Nicotine dependence, unspecified, uncomplicated (ICD-10) History of gastrostomy tube placement Surgical History (Updated 04/03/23 @ 12:10 by Marni Farley) Hx of esophagogastroduodenoscopy ?Z98.890 - Other specified postprocedural states (ICD-10) H/O colonoscopy ?Z98.890 - Other specified postprocedural states (ICD-10) Hx of cholecystectomy ?Z90.49 - Acquired absence of other specified parts of digestive tract (ICD-10) H/O: hysterectomy ?Z90.710 - Acquired absence of both cervix and uterus (ICD-10) Social History (Updated 04/03/23 @ 12:08 by Marni Farley) Smoking status: Current every day smoker Non-prescribed substance use: denies use Highest level of school completed/degree received: high school graduate Little interest or pleasure in doing things: not at all Feeling down, depressed, or hopeless: not at all Exam Constitutional Vital Signs, click to edit/add: Last Vital Signs Temp 97.9 F 12/23/23 05:05 Pulse 99 H 12/23/23 05:05 Resp 18 12/23/23 05:05 BP 126/83 12/23/23 05:05 Pulse Ox 99 12/23/23 05:05 O2 Del Method Room Air 12/23/23 05:05 Common normals: no apparent distress, average body habitus, oriented x3, no limitations, healthy appearing, alert and well nourished HENMT Common normals: normocephalic and head/scalp atraumatic Eye Common normals: PERRL, EOMs intact bilaterally and conjunctivae normal Respiratory Common normals: normal respiratory effort, no retractions, no use of accessory muscles and clear to auscultation bilaterally Cardio Common normals: regular rate, regular rhythm, S1 normal heart sound and S2 normal heart sound GI Other: soft mild epigastric tenderness. no guarding Extremity Common normals: normal to inspection and full ROM Neuro Common normals: oriented x3, CN's II-XII intact bilaterally and moves all extremities Psych Appearance: grossly normal Course Vital Signs Vital signs: Vital Signs Temperature 97.9 F 12/23/23 05:05 Pulse Rate 99 H 12/23/23 05:05 Respiratory Rate 18 12/23/23 05:05 Blood Pressure 126/83 12/23/23 05:05 Pulse Oximetry 99 12/23/23 05:05 Oxygen Delivery Method Room Air 12/23/23 05:05 Temperature 97.9 F 12/23/23 05:05 Pulse Rate 99 H 12/23/23 05:05 Respiratory Rate 18 12/23/23 05:05 Blood Pressure 126/83 12/23/23 05:05 Pulse Oximetry 99 12/23/23 05:05 Oxygen Delivery Method Room Air 12/23/23 05:05 MDM - Abdominal Pain MDM Narrative Medical decision making narrative: patient has past history of pancreatitis. State she is followed by GI at [facility] and describes treatments that have included dilatation of ducts . From her description the success was questionable. Last treated by GI per her history 4 months ago. Presents here for the 3rd time in 2 weeks complaining of pancreatic flare associated with pain, vomiting and diarrhea. labs and IV ordered. Nursing not able to obtain an IV and are waiting for change of shift staff in 30 minutes to try IV via Ultrasound Patient ordered dilauded IV but treatment on hold due to the above. Care transferred to oncoming physician at change of shift Lab Data Labs: Lab Results 12/23/23 Range/Units 06:20 WBC 10.0 (4.0-11.0) 10^3/uL RBC 4.52 (4.20-5.40) 10^6/uL Hgb 15.3 (12.0-16.0) g/dL Hct 45.5 (36.0-48.0) % MCV 100.7 H (81.0-99.0) fL MCH 33.8 (26.7-34.0) pg MCHC 33.6 (29.9-35.2) g/dL RDW 12.4 (11.0-15.0) % Plt Count 239 (150-450) 10^3/uL MPV 9.9 (9.5-13.5) fL Neut % (Auto) 66.1 (43.0-75.0) % Lymph % (Auto) 21.7 (20.5-60.0) % Polk % (Auto) 9.7 (1.7-12.0) % Eos % (Auto) 1.5 (0.9-7.0) % Baso % (Auto) 0.7 (0.2-2.0) % Neut # (Auto) 6.6 H (1.4-6.5) 10^3/uL Lymph # (Auto) 2.2 (1.2-3.8) 10^3/uL Polk # (Auto) 1.0 H (0.3-0.8) 10^3/uL Eos # (Auto) 0.2 (0.0-0.7) 10^3/uL Baso # (Auto) 0.1 (0.0-0.1) 10^3/uL Abs Immat Gran (auto) 0.03 (0.00-0.03) 10^3/uL Imm/Tot Granulo (auto) 0.3 (0.0-0.5) % Discharge Plan Discharge Chief Complaint: Abdominal Pain Clinical Impression: Abdominal pain Patient Disposition: Still a Patient Prescriptions / Home Meds: No Action albuterol sulfate 90 mcg/actuation HFA aerosol inhaler 2 puff INHALATION Q6H PRN (Reason: shortness of breath or wheezing) Print Language: [place] Referrals: Physician,Non-Staff, MD [Primary Care Provider] - 1 week
--- NOTE | 2023-12-23 05:27 | ECG_ITS ---
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
[2023-12-23 06:27] LABS: Basophils Absolute Auto 0.1 10^3/uL (0.0-0.1); Basophils Percent Auto 0.7 % (0.2-2.0); Eosinophils Absolute Auto 0.2 10^3/uL (0.0-0.7); Eosinophils Percent Auto 1.5 % (0.9-7.0); Hematocrit 45.5 % (36.0-48.0); Hemoglobin 15.3 g/dL (12.0-16.0); Immature Granulocytes Abs Auto 0.03 10^3/uL (0.00-0.03); Immature Granulocytes Pct Auto 0.3 % (0.0-0.5); Lymphocytes Absolute Auto 2.2 10^3/uL (1.2-3.8); Lymphocytes Percent Auto 21.7 % (20.5-60.0); Mean Corpuscular HGB Conc 33.6 g/dL (29.9-35.2); Mean Corpuscular Hemoglobin 33.8 pg (26.7-34.0); Mean Corpuscular Volume 100.7 fL (81.0-99.0); Mean Platelet Volume 9.9 fL (9.5-13.5); Monocytes Percent Auto 9.7 % (1.7-12.0); Neutrophils Absolute Auto 6.6 10^3/uL (1.4-6.5); Neutrophils Percent Auto 66.1 % (43.0-75.0); Platelet Count 239 10^3/uL (150-450); Red Blood Count 4.52 10^6/uL (4.20-5.40); Red Cell Distribution Width 12.4 % (11.0-15.0)
--- NOTE | 2023-12-23 06:31 | PC.NURSE ---
attempted 3 times for iv site but unsuccessful but able to collected blood draw.
[2023-12-23 06:42] LABS: Alanine Aminotransferase 15 U/L (14-59); Albumin Level 3.5 g/dL (3.4-5.0); Alkaline Phosphatase 127 U/L (46-116); Amylase 102 U/L (25-115); Anion Gap 16.5; Aspartate Amino Transferase 15 U/L (15-37); BUN Creatinine Ratio 9.4; Bilirubin Total 0.2 mg/dL (0.2-1.0); Calcium 9.9 mg/dL (8.5-10.1); Carbon Dioxide 22.6 mmol/L (21.0-32.0); Chloride 109 mmol/L (98-107); Estimated GFR (African America >60 (>=60 mL/min/1.73m^2); Estimated GFR (Non-African Ame >60 (>=60 mL/min/1.73m^2); Globulin 3.4 g/dL; Glucose 96 mg/dL (74-106); Potassium 4.1 mmol/L (3.5-5.1); Sodium 144 mmol/L (136-145); Total Protein 6.9 g/dL (6.4-8.2); Troponin I High Sensitivity 5.1 pg/mL (4.0-51.3)
[2023-12-23 07:01] VITALS: BP 115/78; PULSE 76; O2SAT 98
== END 2023-12-23 07:03 | disposition home or self-care (01) ==
PROVIDERS: Emergency Provider Internal Medicine
DX: R10.9 Unspecified abdominal pain (principal); F17.200 Nicotine dependence, unspecified, uncomplicated
CPT/HCPCS: 36415; 80053; 82150; 83690; 84484; 85025; 93005; 99284

== ENCOUNTER 2024-01-24 16:51 | Emergency (ER) | payer OTHER, SELFPAY ==
[2024-01-24] VITALS (10 sets, daily range): BP systolic 121–140; BP diastolic 81–92; PULSE 83–110; TEMP 36.7; O2SAT 96–100; BMI 22.9
--- OUTSIDE RECORDS SUMMARY | 2024-01-24 17:01 | XMS_ITS | CCD ---
Author Organization [facility] Care Team Providers Care Life Skills Instructor Name Role Phone LiDarrickwa Unavailable LI, KEWA Unavailable Unavailable COPC SACHIN, GENERIC Unavailable Unavailable COPC SACHIN, GENERIC Unavailable Unavailable BESSIE NEGROROCKY Unavailable Unavailable LI KEWA Unavailable Unavailable JOANA MENDES Unavailable Unavailable LI, KEWA Unavailable Unavailable ERROL WALTON Unavailable Unavaila ble LI KEWA Unavailable Unavailable KEERTHI NGUYEN Unavailable Unavailable COPC SACHIN, GENERIC Unavailable Unavailable KEERTHI NGUYEN ANN Unavailable Unavailable LI, KEWA Unavailable Unavailable PHYSICIANS, [facility] Unavailable Unav ailable EUGENIA SHELTON Unavailable Unavailable PHYSICIANS, [facility] Unavailable Unav ailable Unavailable Primary Care Provider Unavailabl e MagdalenaElie Primary Care Provider [phone] Unavailable Primary Care Provider Unavailflorida e Marya Almonte Unavailable NON STAFF Primary Care Provider UnavailDO Keaton Thompson Emergency Provider [phone] SALMA Amor Emergency Provider [phone] SALMA Lopez Emergency Provider [phone] Pineda Troy MD Unavailable [facility], Other Primary Care Provi mathew NON STAFF Primary Care Provider UnavailMD Agustin Varela Emergency Provider DR TRI HANSON Consulting Unavailable ARIC CHAUDHARY Attending Unavailable ARIC CHAUDHARY Admitting Unavailable [facility] Primary Care Unavailable ARIC CHAUDHARY Consulting Unavailable AGUSTIN MADRIGAL Consulting Unavailable YANNI FRASER Attending Unavailable YANNI FRASER Admitting Unavailable [facility] Primary Care Unavailable HEBERT MCPHERSON Consulting Unavailable DR RAJEEV KELLOGG Consulting Unavailable AMINATA, DR RAJEEV Chan Attending Unavailable AMINATA, DR RAJEEV Chan Admitting Unavailable [facility] Primary Care Unavailable GRECARLOS ., ANKIT BOYKIN Consulting Unavailabl e IGGY ., MONIK Attending Unavailable IGGY ., MONIK Admitting Unavailable GRECHNY ., ANKIT BOYKIN [facility] ANNELIESE, NICK Consulting Unavailable JAUNSZ ., ARIC Consulting Unavailable AGUSTIN HIGHTOWER Consulting Unavailable ROLAN EUCEDA Consulting Unavailable AMINATA, DR RAJEEV Chan Consulting Unavailable BRIANNA, DR SHARON Silveira Attending [facility] REINECK, DR SHARON Silveira Admitting [facility] Unavailable BRIANNA, DR SHARON Silveira Consulting [facility] HANS ., NAT Consulting Unavailable HANS ., NAT Consulting Unavailable PAY ., DR MACEDO Attending Unavailable PAY ., DR MACEDO Admitting Unavailable [facility] Primary Care Unavailable ANNELIESE, NICK Consulting Unavailable ANNELIESE, NICK Attending Unavailable ANNELIESE, NICK Admitting Unavailable [facility] Primary Care Unavailable MILADIS BARRERA Consulting Unavailable JANUSZ ., ARIC Attending Unavailable JANUSZ ., ARIC Admitting Unavailable JANUSZ ., ARIC Consulting Unavailable [facility] Primary Care Unavailable ION KRUSE Consulting Unavailable YANNI FRASER Attending Unavailable YANNI FRASER Admitting Unavailable JANNY ., ANKIT BOYKIN [facility] Unavailable LYNNE PERDOMO Consulting Unavailable JANUSZ ., ARIC Attending Unavailable JANUSZ ., ARIC Admitting Unavailable [facility] Primary Care Unavailable JANUSZ ., ARIC Consulting Unavailable DIAB ., ELENITA Consulting Unavailable DIAB ., ELENITA Attending Unavailable DIAB ., ELENITA Admitting Unavailable [facility] Primary Care Unavailable PAY ., DR MACEDO Consulting Unavailable PAY ., DR MACEDO Attending Unavailable PAY ., DR MACEDO Admitting Unavailable [facility] Primary Care Unavailable ANNELIESE, NICK Consulting Unavailable ANNELIESE, NICK Attending Unavailable ANNELIESE, NICK Admitting Unavailable [facility] Primary Care Unavailable AGUSTIN HIGHTOWER Consulting Unavailable AMINATA, DR RAJEEV Chan Consulting Unavailable TANVIR ., DR GRANT Attending Unavailable HAY ., DR GRANT Admitting Unavailable [facility] Primary Care Unavailable HAY ., DR GRANT Consulting Unavailable NON STAFF Primary Care Provider Unavailabl e Saffle, INFANT BABYSITTER Nicole Serrano Emergency Provider NON STAFF Primary Care Provider Unavailabl e Saffle, INFANT BABYSITTER Nicole N Emergency Provider [phone] DO Rivera Lopez Emergency Provider Services, [facility] Primary Care Provider MD Xiang Kellogg Emergency Provider Pineda Troy MD Unavailable [facility], Other Primary Care Provi mathew NON STAFF Primary Care Unavailable Nicole Posadas N Admitting Unavailable Nicole Posadas N Attending Unavailable NON STAFF Primary Care Unavailable Rivera Lopez Admitting Unavailable Rivera Lopez Attending Unavailable Nicole Posadas Attending Unavailable NON STAFF Primary Care Unavailable Nicole Posadas Admitting Unavailable NON STAFF Primary Care Unavailable Xiang Kellogg Admitting Unavailable Xiang Kellogg Attending Unavailable Pineda Troy MD Unavailable SERVICES, [facility] Care Unava ilable STEPHANIE MAHMOOD Attending Unavailable SERVICES, [facility] Unava ilable VIC B[place] Attending Unavailable [facility] [place] Attending Unavailable [facility] [place] Referring Unavailable SERVICES, [facility] Unava ilable SERVICES, [facility] Care Unava ilable TABITHA NEWELL Attending Unavailable TABITHA NEWELL Attending Unavailable TABITHA NEWELL Referring Unavailable SERVICES, [facility] Unava ilable SERVICES, [facility] Care Unava ilable TABITHA NEWELL Attending Unavailable TABITHA NEWELL Attending Unavailable TABITHA NEWELL Referring Unavailable SERVICES, [facility] Care Unava ilable STEVE, SOMASHEKAR G Attending Unavailabl e [facility], OTHER Primary Care Un available SELF, SELF Referring Unavailable STEVELUZ MARIASHEKAR G Attending Unavailabl e LUZ MARIA DEESHKARLA G Referring Unavailabl e [facility], OTHER Primary Care Un available STEVE, SOMASHEKAR G Referring Unavailabl e [facility], OTHER Primary Care Un available SABRINA DEE Attending Unavailabl e Allergies Allergy Classification Reported Allergen(s) Allergy Type Date of Onset Reaction(s) Facility DOPamine Antagonists (1 source) Metoclopramide Drug Allergy 07-20-19 17 Anxiety [facility] Haloperidol (1 source) Haloperidol Drug Allergy 06-02-19 16 [facility] NSAIDs (1 source) Ibuprofen Drug Allergy 10-31-19 13 Hives, Swelling [facility] Opioid Agonists (2 sources) Morphine Drug Allergy 10-24-19 15 [facility] Penicillins (antibiotic) (1 source) Penicillins Drug Allergy 10-31-19 13 Swelling [facility] Work Phone: (20 sources) haloperidol; Translations: [HALOPERIDOL] Propensity to adverse reactions to drug 06-02-[address] [facility] (20 sources) ibuprofen; Translations: [IBUPROFEN] Propensity to adverse reactions to drug 10-31-19 13 Hives, Swelling, Anaphylaxis [facility] (6 sources) metoclopramide; Translations: [METOCLOPRAMIDE HCL] Propensity to adverse reactions to drug 07-01-19 17 [facility] ([facility] sources) penicillin g; Translations: [PENICILLIN G] Propensity to adverse reactions to drug 07-25-19 15 Anaphylaxis [facility] (20 sources) traMADol; Translations: [TRAMADOL] Propensity to adverse reactions to drug 07-25-[address] [facility] (20 sources) morphine; Translations: [MORPHINE] Drug Allergy 07-16-[address] [facility] (5 sources) Enoxaparin; Translations: [ENOXAPARIN] Drug Allergy 08-23-19 20 Itching, Rash [place] (2 sources) Haloperidol Drug Allergy 10-20-19 18 [place] (16 sources) Penicillins; Translations: [PENICILLINS] Propensity to adverse reactions to drug 10-31-19 13 Anaphylaxis, Swelling [place] (2 sources) Haloperidol; Translations: [Haldol] Drug Allergy 08-10-19 19 Unknown [facility] (15 sources) fentaNYL; Translations: [Fentanyl] Drug Allergy 09-13-19 21 [facility] (13 sources) Ketorolac; Translations: [ketorolac] Drug Allergy 06-13-19 21 Hives [place] (6 sources) Ketorolac Drug Allergy 12-17-19 22 Hives, Itching [facility] (11 sources) Metoclopramide; Translations: [METOCLOPRAMIDE] Drug Allergy 07-01-19 17 Anxiety [facility] (1 source) Ibuprofen Drug Allergy 01-09-20 13 [facility] (1 source) Ketorolac Drug Allergy [facility] (1 source) Morphine Drug Allergy 08-10-19 19 [facility] (1 source) Penicillins Drug allergy (disorder) 01-09-20 13 [facility] (1 source) traMADol Drug Allergy 01-09-20 13 [facility] (4 sources) Penicillins Propensity to adverse reactions to drug 10-10-19 18 Anaphylaxis [facility] (3 sources) Ketorolac trometamol Propensity to adverse reactions to drug 12-17-19 22 Hives, Itching [facility] (2 sources) Penicillins Propensity to adverse reactions to drug 10-31-19 13 Swelling [facility] Work Phone: (1 source) Haloperidol Drug Allergy 04-18-19 [place] [facility] (1 source) Ibuprofen Drug Allergy 04-18-19 [place] [facility] (1 source) Morphine Drug Allergy 04-18-19 [place] [facility] (1 source) Penicillins Drug allergy (disorder) 04-18-19 [place] [facility] (1 source) traMADol Drug Allergy 04-18-19 [place] [facility] Medications Current Medications Medication Drug Class(es) [...] 30 tablet 11 12/01/2019 05/11/2023 Discontinued amylase 188258 unt / lipase 99404 unt / protease 84803 unt delayed release oral capsule (19 sources) Start: 12-23-2023 take 3 capsules by mouth twice daily at mealtime Pancreatic enzymes (Creon) 87256-936[address]-197753 units Cap DR Particles capsule Take 3 capsules by mouth 2 times daily with meals. 180 capsule 11 12/23/2023 Active Start: 05-11-2023 take 3 capsules by m outh twice daily at mealtime Pancreatic enzymes (Creon) 18491-[address] Particles capsule Take 3 capsules by mouth 2 times daily with meals. 180 capsule 11 05/11/2023 Active Start: 12-16-2021 End: 05-11-2023 take 2 capsules by mouth three times daily at mealtime Pancreatic enzymes (Creon) 33338-049[address] Particles capsule Take 2 [...] 08/24/2017 Active ergocalciferol 1.25 mg oral capsule (8 sources) Provitamin D2 Compound Start: 05-11-2023 End: 07-06-2023 take 1 capsule by mouth every week Ergocalciferol 1.25 MG (89986 UT) capsule Take 1 capsule by mouth once a week. 8 capsule 05/11/2023 Active Start: 01-28-2022 End: 03-19-2022 take 1 capsule by mouth every week ergocalciferol 1.25 MG (52895 UT) capsule Take 1 capsule by mouth [...] mg by mouth daily . 0 Active [place] (No Known Home Meds) (1 source) Start: 10-09-2021 [place] (No Kn own Home Meds) Active October 09, 2021 12:00am polyethylene glycol 3350 17439 mg powder for oral solution (1 source) [...] 3 March 28, 2020 April 19, 2020 6:36pm Start: 08-24-2017 End: 08-24-2017 oxyCODONE-acetaminophen (PER COCET) 5-325 mg per tablet 1 tablet bisacodyl 10 mg rectal suppository (1 source) Stimulant Laxative Start: 08-24-2019 End: 08-24-2019 bisacodyl (DULCOLAX) suppository 10 mg bupivacaine hydrochloride 2.5 mg/ml injectable solution (4 sources) Amide Local Anesthetic Start: 01-19-2024 End: 01-19-2024 50 mg (20 mL), Infiltration, ONCE (IN CLINIC), 1 dose, On Thu01/19/24 at 0945 Start: 09-08-2023 End: 09-08-2023 50 mg (20 [...] 1 ml HYDROmorphone hydrochloride 1 mg/ml cartridge (10 sources) Opioid Agonist Start: 01-19-2024 End: 01-20-2024 0.5 mg, Intravenous, EVERY 10 MINUTES NEEDED, 8 doses, Starting on Thu01/19/24 at 1000, Until Thu01/20/24 at 0235, Moderate Pain, Severe Pain, May give a total of 4mg in PACU., Recovery Start: 09-08-2023 End: 09-09-2023 take 0.5 mg intravenously every three hours as needed 0.5 mg, Intravenous, EVERY 3 HOURS NEEDED, Starting on Thu09/08/23 at 0821, Until Thu09/09/23 at 0235, Severe pain requiring analgesia Start: 08-12-2022 End: 08-12-2022 HYDROmorphone (DILAUDID) injection 0.5 mg Start: 03-26-2020 End: 03-26-2020 HYDROmorphone (DILAUDID) injection 1 mg Start: 08-24-2019 HYDROmorphone (DILAUDID) injection 0.5 mg Start: 08-23-2019 End: 08-24-2019 HYDROmorphone (DILAUDID) injection 0.25 mg Start: 05-14-2017 End: 05-15-2017 take [...] daily. 30 capsule 6 06/16/2022 05/11/2023 Discontinued 2 ml ondansetron 2 mg/ml injection (20 sources) Serotonin-3 Receptor Antagonist Start: 01-19-2024 End: 01-19-2024 4 mg, Intravenous, ONCE NEEDED, 1 dose, Starting on Thu01/19/24 at 1000, Until Thu01/19/24 at 1007, Nausea / Vomiting, FIRST line antiemetic, Do not administer within 6 hours of intra-operative dose., Recovery Start: 04-11-2023 take 1 tablet by sachin th every eight hours as needed for nausea [...] 05-14-2017 ondansetron (ZOFRAN) injecti on 4 mg oxyCODONE hydrochloride 5 mg oral tablet (7 [...] ml triamcinolone acetonide 40 mg/ml prefilled syringe (4 sources) Corticosteroid Start: 01-19-2024 End: 01-19-2024 80 mg, Infiltration, ONCE, 1 dose, On Thu01/19/24 at 1015 Start: 09-08-2023 End: 09-08-2023 80 mg, Infiltration, ONCE, 1 dose, On Thu09/08/23 at 0715 Start: 08-12-2022 End: 08-12-2022 triamcinolone (KENALOG-40) i njection 80 mg Start: 01-28-2022 End: 01-28-2022 triamcinolone (KENALOG-40) i njection 80 mg Problems Active Problems Problem Classification Problem Date Documented Da te Episodic/Chronic Administrative/social admission (6 sources) Drug seeking behavior ; Translations: [Malingerer [conscious simulation]] 10-09-2021 Episodic Alcohol-related disorders (10 sources) History of alcohol abuse; Translations: [Alcohol [...] disease without esophagitis] 05-11-2023 Chronic Mood disorders (14 sources) Bipolar disorder; Translations: [Depressive disorder] Onset: 5 09-07-2014 Chronic Osteoporosis (3 sources) Osteoporosis; Translations: [Other osteoporosis without current pathological fracture] Chronic Other aftercare (1 source) Other prison (current) drug therapy; 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] Onset: 3 Episodic Other [...] Episodic Complication of device; implant or graft (9 sources) Breakdown (mechanical) of cranial or spinal infusion catheter, initial encounter; Translations: [Mechanical complication due to other implant and internal device, not elsewhere classified] Onset: 04-23-2016 Resolved: 04-24-2016 04-24-2016 Episodic Complications of surgical procedures or medical care (18 sources) Malfunction of gastrostomy tube; Translations: [Gastrostomy malfunction] Onset: 06-25-2015 Resolved: 06-09-2016 06-09-2016 Episodic Diseases of white blood cells (9 sources) Neutrophilia; Translations: [Disorder of white blood cells, unspecified] Onset: 06-25-2015 Resolved: 06-28-2015 06-28-2015 Chronic Fluid and electrolyte disorders (2 sources) Dehydration; Translations: [Hypokalemia] Onset: 07-23-2021 Episodic Immunizations and screening for [...] Episodic Other disorders of stomach and duodenum (9 sources) Cyclical vomiting syndrome; Translations: [Cyclical vomiting syndrome unrelated to migraine] Onset: 06-21-2015 06-21-2015 Episodic Other gastrointestinal disorders (17 sources) Diarrhea; Translations: [Diarrhea, unspecified] Onset: 06-30-2015 [...] Resolved: 06-09-2016 06-30-2016 Episodic Residual codes; unclassified (9 sources) Tobacco use and exposure - finding; [...] Test Name Value Interpretation Reference Range Facility [facility] EUSon 01-19-2024 [facility] Gastroenterology Patient Name: Chioma Rainey Procedure Date: 01/19/2024 9:15 AM Date of : 1970 Admit Type: Outpatient Age: 53 Room: EUS Proc Room 01 Gender: Female Note Status: Finalized Attending MD: Sabrina Dee MD, MPH, [id number] Procedure: Upper EUS Indications: Celiac plexus block for pain secondary to chronic pancreatitis Providers: Sabrina Dee MD, MPH (Doctor), Daniel Christiansen MD (Fellow), Love Zeng RN (Nurse), Lotus Rudd RN (Nurse), LOW Emanuel (Anesthesia Staff) Patient Profile: This is a 53 year old female. Patient with chronic EtoH pancreatitis (quit drinking in 2019) with chronic abdominal pain s/p CPB x 5 with clinical response. Last CPB in 09/2023. Patient is presenting for repeat EUS with CPB. She presented to the ED for 4 times since 09/2023 for acute on chronic abdominal pain. Referring MD: Medicines: Monitored Anesthesia Care Complications: No immediate [...] by the physician, the nurse and the anesthesiologist in the pre-procedure area in the procedure room. Mental Status Examination: alert and oriented. Airway Examination: normal oropharyngeal airway and neck [...] saturations were monitored continuously. The GF-UCT [id number] was introduced through the mouth, and advanced to the second part of duodenum. The upper EUS was accomplished without difficulty. The patient tolerated the procedure well. Findings: ENDOSCOPIC FINDING: : No gross lesions were noted in the entire esophagus. No gross lesions were noted in the entire examined stomach. No gross lesions were noted in the entire examined duodenum. ENDOSONOGRAPHIC FINDING: : The esophagus, stomach and duodenum were examined endosonographically. Pancreatic parenchymal abnormalities were noted in the entire pancreas. These consisted of hyperechoic strands. The diameter of the main pancreatic duct (MPD) measured: - HOP 3 mm (head of pancreas) - BOP 2 mm (body of the pancreas) - TOP 1 mm (tail of the pancreas). There was no sign of significant endosonographic abnormality in the common bile duct. The maximum diameter of the duct was 5 mm. There was no sign of significant endosonographic abnormality in the left lobe of the liver. Celiac plexus block was performed. The region of the celiac plexus and celiac ganglia was identified endosonographically with Color Doppler imaging, using the take-off of the celiac trunk from the anterior aspect o (more content not included)... LAB, [facility] Radiology Study observation (narrative) [facility] CBC AND AUTO DIFFon 01-14-20 24 ABSOLUTE BASOPHIL 0.1 X10E9/L Normal 0.0-0.2 [facility] Comment on above: Performed By: #### C BCA, CMP, 3040-3, 24508-4, 03838-3, 70810- 9 #### [facility] ([id number]) [address] [place] [address] 20781 ABSOLUTE NEUTROPHIL 6.8 X10E9/L High 1.5-6.6 [facility] Comment on above: Performed By: #### C BCA, CMP, 3040-3, 44127-5, 11194-5, 33466- 9 #### [facility] ([id number]) [address] [place] [address] 09613 Basophils/100 WBC (Bld) 0.8 % Normal [facility] Comment on above: Performed By: #### C BCA, CMP, 3040-3, 13140-2, 66493-9, 79231- 9 #### [facility] ([id number]) [address] [place] [address] 45456 Eosinophils (Bld) [#/Vol] 0.1 10*3/uL Normal 0.0-0.4 [facility] Comment on above: Performed By: #### C BCA, CMP, 3040-3, 59925-8, 09781-9, 15953- 9 #### [facility] ([id number]) [address] [place] [address] 02171 Eosinophils/100 WBC (Bld) 1.2 % Normal [facility] Comment on above: Performed By: #### C BCA, CMP, 3040-3, 06749-8, 38831-6, 56804- 9 #### [facility] ([id number]) [address] [place] [address] 38228 Erythrocyte distribution width (RBC) [Ratio] 12.9 % Normal 11.5-15.0 [facility] Comment on above: Performed By: #### C BCA, CMP, 3040-3, 44276-6, 30152-4, 24651- 9 #### [facility] ([id number]) [address] [place] [address] 33579 Hematocrit (Bld) [Volume fraction] 42.2 % Normal 35-47 [facility] Comment on above: Performed By: #### C BCA, CMP, 3040-3, 10958-9, 20770-2, 18705- 9 #### [facility] ([id number]) [address] [place] [address] 91242 Hemoglobin (Bld) [Mass/Vol] 14.5 g/dL Normal 11.7-15.5 [facility] Comment on above: Performed By: #### C BCA, CMP, 3040-3, 05770-3, 41304-3, 68580- 9 #### [facility] ([id number]) [address] [place] [address] 00509 Lymphocytes (Bld) [#/Vol] 2.8 10*3/uL Normal 1.0-3.5 [facility] Comment on above: Performed By: #### C BCA, CMP, 3040-3, 33368-2, 08441-5, 18042- 9 #### [facility] ([id number]) [address] [place] [address] 76796 Lymphocytes/100 WBC (Bld) 26.2 % Normal [facility] Comment on above: Performed By: #### C BCA, CMP, 3040-3, 07844-6, 82247-4, - #### [facility] ([id number]) [address] [place] [address] 27117 MCH (RBC) [Entitic mass] 33.8 pg Normal 27-34 [facility] Comment on above: Performed By: #### C BCA, CMP, 3040-3, 40869-0, 58207-8, - 9 #### [facility] ([id number]) [address] [place] [address] 46235 MCHC (RBC) [Mass/Vol] 34.3 g/dL Normal 32-36 [facility] Comment on above: Performed By: #### C BCA, CMP, 3040-3, 11237-1, 20341-9, - 9 #### [facility] ([id number]) [address] [place] [address] 70597 MCV (RBC) [Entitic vol] 98 fL Normal 80-100 [facility] Comment on above: Performed By: #### C BCA, CMP, 3040-3, 38026-4, 60572-6, 80185- 9 #### [facility] ([id number]) [address] [place] [address] 38677 Monocytes (Bld) [#/Vol] 0.9 10*3/uL Normal 0-0.9 [facility] Comment on above: Performed By: #### C BCA, CMP, 3040-3, 47612-3, 20356-1, - 9 #### [facility] ([id number]) [address] [place] [address] 57158 Monocytes/100 WBC (Bld) 8.2 % Normal [facility] Comment on above: Performed By: #### C BCA, CMP, 3040-3, 95460-9, 34493-7, 60242- 9 #### [facility] ([id number]) [address] [place] [address] 24424 Neutrophils/100 WBC (Bld) 63.6 % Normal [facility] Comment on above: Performed By: #### C BCA, CMP, 3040-3, 25807-7, 27690-3, 43050- 9 #### [facility] ([id number]) [address] [place] [address] 51946 Platelet mean volume (Bld) [Entitic vol] 8.2 fL Normal 7-12 [facility] Comment on above: Performed By: #### C BCA, CMP, 3040-3, 90896-0, 69943-6, 80879- 9 #### [facility] ([id number]) [address] [place] [address] 05768 Platelets (Bld) [#/Vol] 259 10*3/uL Normal 150-450 [facility] Comment on above: Performed By: #### C BCA, CMP, 3040-3, 48981-4, 07082-7, 63655- 9 #### [facility] ([id number]) [address] [place] [address] 17054 RBC COUNT 4.29 X10E12/L Normal 3.80-5.20 [facility] Comment on above: Performed By: #### C BCA, CMP, 3040-3, 97245-3, 51546-1, 66224- 9 #### [facility] ([id number]) [address] [place] [address] 73497 WBC (Bld) [#/Vol] 10.7 10*3/uL Normal 4.0-11.0 [facility] Comment on above: Performed By: #### C BCA, CMP, 3040-3, 22681-5, 28942-5, 89463- 9 #### [facility] ([id number]) [address] [place] [address] 81955 COMPREHENSIVE METABOLIC PANE Nimesh 01-14-2024 Albumin [Mass/Vol] 4.2 g/dL Normal 3.2-5.3 [facility] Comment on above: Performed By: #### C BCA, CMP, 3040-3, 29721-0, 26111-7, 53364- 9 #### [facility] ([id number]) [address] [place] [address] 14596 ALP [Catalytic activity/Vol] 136 U/L High 39-130 [facility] Comment on above: Performed By: #### C BCA, CMP, 3040-3, 53965-2, 29427-6, 84211- 9 #### [facility] ([id number]) [address] [place] [address] 66638 ALT [Catalytic activity/Vol] 18 U/L Normal 0-31 [facility] Comment on above: Performed By: #### C BCA, CMP, 3040-3, 25818-6, 64872-1, 92845- 9 #### [facility] ([id number]) [address] [place] [address] 39844 Anion gap [Moles/Vol] 10 mmol/L Normal 5-15 [facility] Comment on above: Performed By: #### C BCA, CMP, 3040-3, 90242-8, 22419-6, 76963- 9 #### [facility] ([id number]) [address] [place] [address] 67873 AST [Catalytic activity/Vol] 21 U/L Normal 0-41 [facility] Comment on above: Performed By: #### C BCA, CMP, 3040-3, 57917-7, 09761-4, 81503- 9 #### [facility] ([id number]) [address] [place] [address] 28478 Bilirubin [Mass/Vol] 0.5 mg/dL Normal 0.3-1.2 [facility] Comment on above: Performed By: #### C BCA, CMP, 3040-3, 26341-7, 10824-2, 94495- 9 #### [facility] ([id number]) [address] [place] [address] 20098 Calcium [Mass/Vol] 9.6 mg/dL Normal 8.5-10.5 [facility] Comment on above: Performed By: #### C BCA, CMP, 3040-3, 52812-6, 45112-5, 84106- 9 #### [facility] ([id number]) [address] [place] [address] 30159 Chloride [Moles/Vol] 105 mmol/L Normal 98-109 [facility] Comment on above: Performed By: #### C BCA, CMP, 3040-3, 61907-4, 84409-2, 40081- 9 #### [facility] ([id number]) [address] [place] [address] 38268 CO2 [Moles/Vol] 22 mmol/L Normal 22-32 [facility] Comment on above: Performed By: #### C BCA, CMP, 3040-3, 09177-4, 48995-4, 86023- 9 #### [facility] ([id number]) [address] [place] [address] 92277 Creatinine [Mass/Vol] 0.74 mg/dL Normal 0.40-1.00 [facility] Comment on above: Result Comment: METH OD TRACEABLE TO IDMS STANDARD Performed By: #### C BCA, CMP, 3040-3, 80605-3, 67466-4, 20932-9 #### [facility] ([id number]) [address] [place] [address] 82785 eGFR (CKD-EPI) NON-RACE DEPENDENT >90 Normal >59 [facility] Comment on above: Result Comment: Reported eGFR is based on the CKD-EPI 2020 equation that does not use a race coefficient. Performed By: #### C BCA, CMP, 3040-3, 39661-5, 10611-9, 46135-0 #### [facility] ([id number]) [address] [place] [address] 76041 Glucose [Mass/Vol] 93 mg/dL Normal 65-99 [facility] Comment on above: Performed By: #### C BCA, CMP, 3040-3, 05226-9, 89922-2, 47226- 9 #### [facility] ([id number]) [address] [place] [address] 11081 Potassium [Moles/Vol] 3.6 mmol/L Normal 3.5-5.0 [facility] Comment on above: Performed By: #### C BCA, CMP, 3040-3, 57621-5, 12581-2, - 9 #### [facility] ([id number]) [address] [place] [address] 57332 Protein [Mass/Vol] 7.3 g/dL Normal 6.0-8.0 [facility] Comment on above: Performed By: #### C BCA, CMP, 3040-3, 28535-2, 84164-1, 85412- 9 #### [facility] ([id number]) [address] [place] [address] 41078 Sodium [Moles/Vol] 137 mmol/L Normal 134-146 [facility] Comment on above: Performed By: #### C BCA, CMP, 3040-3, 91166-4, 33790-0, 20566- 9 #### [facility] ([id number]) [address] [place] [address] 10779 Urea nitrogen [Mass/Vol] 7 mg/dL Normal 5-23 [facility] Comment on above: Performed By: #### C BCA, CMP, 3040-3, 05347-4, 05087-4, 9 #### [facility] ([id number]) [address] [place] [address] CT ABDOMEN AND PELVIS W CONT on 01-14-2024 CT ABDOMEN AND PELVIS W CONT CT ABDOMEN AND PELVIS W CONT CLINICAL INFORMATION: Pancreatitis, acute, severe TECHNIQUE: CT ABDOMEN AND PELVIS W CONT CT images of the abdomen and pelvis are obtained post intravenous administration of contrast. Comparison made prior exam dated 12/29/2023. Limited images the lung bases are clear. No focal hepatic or splenic abnormality. Patient post cholecystectomy. Mild biliary ductal prominence may be a reservoir effect. Pancreatic duct is also somewhat dilated measuring approximately 5 mm. No peripancreatic inflammatory stranding. Kidneys enhance homogeneously without hydronephrosis. What appears to be appendix is normal in caliber. Within the posterior pelvis. Nondistended fluid-filled loops of small bowel present suggesting ileus. Portal and mesenteric vessels appear to enhance normally. Aortoiliac atherosclerotic changes again seen. There is questionable pancreas divisum. IMPRESSION: Pancreatic ductal dilatation and questionable pancreas divisum. MRI MRCP may be useful for further evaluation as clinically indicated. Fluid-filled loops of small bowel suggesting ileus. No current CT evidence of acute pancreatitis. All CT scans at this facility use dose modulation, iterative reconstruction, and/or weight based dosing when appropriate to reduce radiation dose to as low as reasonably achievable. Finalized by Alberto Rodgers MD on 01/14/2024 5:01 PM Normal [facility] LIPASEon 01-14-2024 Lipase [Catalytic activity/Vol] 72 U/L High 17-40 [facility] Comment on above: Performed By: #### C BCA, CMP, 3040-3, 83769-0, 45303-7, #### [facility] ([id number]) [address] [place] [address] MAGNESIUMon 01-14-2024 Magnesium [Mass/Vol] 2.2 mg/dL Normal 1.8-2.6 [facility] Comment on above: Performed By: #### C BCA, CMP, 3040-3, 21712-6, 85423-7, 85021- 9 #### [facility] ([id number]) [address] [place] [address] 30487 URN MACROSCOPIC NURon 2023 BILIRUBIN JERE Negative Normal [facility] Comment on above: Performed By: #### C BCA, CMP, 3040-3, 03570-7, 82530-9, 84885- 9 #### [facility] ([id number]) [address] [place] [address] 31222 BLOOD/HGB JERE Negative Normal NEG [facility] Comment on above: Performed By: #### C BCA, CMP, 3040-3, 23404-8, 78427-0, 34589- 9 #### [facility] ([id number]) [address] [place] [address] 59231 GLUCOSE JERE Negative Normal [facility] Comment on above: Performed By: #### C BCA, CMP, 3040-3, 40162-4, 52880-7, 92539- 9 #### [facility] ([id number]) [address] [place] [address] 13002 KETONES JERE Negative Normal [facility] Comment on above: Performed By: #### C BCA, CMP, 3040-3, 98920-1, 35488-8, 22217- 9 #### [facility] ([id number]) [address] [place] [address] [place] [address] LEUKOCYTE ESTERASE JERE Negative Normal NEG [facility] Comment on above: Performed By: #### C BCA, CMP, 3040-3, 58971-0, 97250-8, 42724- 9 #### [facility] ([id number]) [address] [place] [address] 15225 NITRITE JERE Negative Normal NEG [facility] Comment on above: Performed By: #### C BCA, CMP, 3040-3, 00801-5, 03461-0, 33007- 9 #### [facility] ([id number]) [address] [place] [address] 86847 PH JERE 5.5 Normal 5.0-8.5 [facility] Comment on above: Performed By: #### C BCA, CMP, 3040-3, 81969-2, 37477-8, 36018- 9 #### [facility] ([id number]) [address] [place] [address] 48592 PROTEIN JERE Negative Normal NEG [facility] Comment on above: Performed By: #### C BCA, CMP, 3040-3, 98540-4, 93993-6, 80001- 9 #### [facility] ([id number]) [address] [place] [address] 39439 SPECIFIC GRAVITY JERE >=1.030 Normal 1.003-[address] [place] [address] Comment on above: Performed By: #### C BCA, CMP, 3040-3, 74094-6, 88578-9, 63389- 9 #### [facility] ([id number]) [address] [place] [address] 40789 UROBILINOGEN JERE 0.2 eu/dL Normal <1.1 [facility] Comment on above: Performed By: #### C BCA, CMP, 3040-3, 01910-0, 85763-1, 65947- 9 #### [facility] ([id number]) [address] [place] [address] 15548 CBC with Diffon 01-07-2024 Abs. Basophil 0.09 k/uL Normal 0.00-0.20 [facility] Comment on above: Performed By: #### C DP, LIP, CP #### [facility] [address] [place] [address] Nephrology Social Worker: Ion Jasso MD Abs.Imm.Granulocyte <0.03 Normal 0.00-0.30 [facility] Comment on above: Performed By: #### C DP, LIP, CP #### [facility] [address] [place], [place] [address] Nephrology Social Worker: Ion Jasso MD Abs.Neutrophil (Seg) 6.06 k/uL Normal 1.50-8.10 [facility] Comment on above: Performed By: #### C DP, LIP, CP #### [facility] [address] [place], [place] [address] Nephrology Social Worker: Ion Jasso MD Basophils/100 WBC (Bld) 1 % Normal 0-2 [facility] Comment on above: Performed By: #### C DP, LIP, CP #### [address] [place], [place] [address] Nephrology Social Worker: Ion Jasso MD Eosinophils (Bld) [#/Vol] 0.10 10*3/uL Normal 0.00-0.44 [facility] Comment on above: Performed By: #### C DP, LIP, CP #### [address] [place], [place] [address] Nephrology Social Worker: Ion Jasso MD Eosinophils/100 WBC (Bld) 1 % Normal 1-4 [facility] Comment on above: Performed By: #### C DP, LIP, CP #### [address] [place], [place] [address] Nephrology Social Worker: Ion Jasso MD Erythrocyte distribution width (RBC) [Ratio] 12.2 % Normal 11.8-14.4 [facility] Comment on above: Performed By: #### C DP, LIP, CP #### [address] [place], [facility] Nephrology Social Worker: Ion Jasso MD Hematocrit (Bld) [Volume fraction] 46.3 % Normal 36.3-47.1 [facility] Comment on above: Performed By: #### C DP, LIP, CP #### [facility] [address] [place], [facility] Nephrology Social Worker: Ion Jasso MD Hemoglobin (Bld) [Mass/Vol] 15.9 g/dL High 11.9-15.1 [facility] Comment on above: Performed By: #### C DP, LIP, CP #### [address] [place], [place] [address] Nephrology Social Worker: Ion Jasso MD Immature granulocytes/100 WBC (Bld) 0 % Normal 0 [facility] Comment on above: Performed By: #### C DP LIP, CP #### [address] [place], [place] [address] Nephrology Social Worker: Ion Jasso MD Lymphocytes (Bld) [#/Vol] 2.73 10*3/uL Normal 1.10-3.70 [facility] Comment on above: Performed By: #### C DP LIP, CP #### [address] [place], [place] [address] Nephrology Social Worker: Ion Jasso MD Lymphocytes/100 WBC (Bld) 28 % Normal 24-43 [facility] Comment on above: Performed By: #### C DP LIP, CP #### [address] [place], [facility] Nephrology Social Worker: Ion Jasso MD MCH (RBC) [Entitic mass] 33.8 pg High 25.2-33.5 [facility] Comment on above: Performed By: #### C DP LIP, CP #### [address] [place], [facility] Nephrology Social Worker: Ion Jasso MD MCHC (RBC) [Mass/Vol] 34.3 g/dL Normal 28.4-34.8 [facility] Comment on above: Performed By: #### C DP LIP, CP #### [address] [place], [place] [address]83 Nephrology Social Worker: Ion Jasso MD MCV (RBC) [Entitic vol] 98.3 fL Normal 82.6-102.9 [facility] Comment on above: Performed By: #### C DP, LIP, CP #### [address] [place], [place] 4545683 Nephrology Social Worker: Ion Jasso MD Monocytes (Bld) [#/Vol] 0.88 10*3/uL Normal 0.10-1.20 [facility] Comment on above: Performed By: #### C DP LIP, CP #### [address] [place], [facility] Nephrology Social Worker: Ion Jasso MD Monocytes/100 WBC (Bld) 9 % Normal 3-12 [facility] Comment on above: Performed By: #### C DP LIP, CP #### [address] [place], [facility] Nephrology Social Worker: Ion Jasso MD Neutrophil (Seg) 61 % Normal 36-65 [facility] Comment on above: Performed By: #### C ELMER LIP, CP #### [address] [place], [place] [address]83 Nephrology Social Worker: Ion Jasso MD NRBC Automated 0.0 per 100 WBC Normal 0.0 [facility] Comment on above: Performed By: #### C DP, LIP, CP #### [address] [place], [facility] Nephrology Social Worker: Ion Jasso MD Platelet mean volume (Bld) [Entitic vol] 9.7 fL Normal 8.1-13.5 [facility] Comment on above: Performed By: #### C DP LIP, CP #### [address] [place], [facility] Nephrology Social Worker: Ion Jasso MD Platelets (Bld) [#/Vol] 277 10*3/uL Normal 138-453 [facility] Comment on above: Performed By: #### C DP LIP, CP #### [facility] [address] [place] [address] [place], [place] 0899183 Nephrology Social Worker: Ion Jasso MD RBC (Bld) [#/Vol] 4.71 10*6/uL Normal 3.95-5.11 [facility] Comment on above: Performed By: #### C DP, LIP, CP #### [facility] [address] [place] [address] [place] [address] Nephrology Social Worker: Ion Jasso MD WBC (Bld) [#/Vol] 9.9 10*3/uL Normal 3.5-11.3 [facility] Comment on above: Performed By: #### C REBECA PAYNE, CP #### [address] [place], [place] [address]83 Nephrology Social Worker: Ion Jasso MD Comp Metabolic Profon 2023 Albumin [Mass/Vol] 4.3 g/dL Normal 3.5-5.2 [facility] Comment on above: Performed By: #### C ELMER LIP, CP #### [address] [place] [address] Nephrology Social Worker: Ion Jasso MD Albumin/Glob Ratio 1.6 Normal 1.0-2.5 [facility] Comment on above: Performed By: #### C DP LIP, CP #### [address] [place], [place] [address]3 Nephrology Social Worker: Ion Jasso MD Alkaline Phos 145 U/L High 35-104 [facility] Comment on above: Performed By: #### C DP LIP, CP #### [facility] [address] [place], [place] 9400483 Nephrology Social Worker: Ion Jasso MD ALT [Catalytic activity/Vol] 11 U/L Normal 10-35 [facility] Comment on above: Performed By: #### C REBECA PAYNE, CP #### [facility] [address] [place], [place] [address]883 Nephrology Social Worker: Ion Jasso MD Anion gap [Moles/Vol] 12 mmol/L Normal 9-16 [facility] Comment on above: Performed By: #### C REBECA PAYNE, CP #### [facility] [address] [place], [place] 8899483 Nephrology Social Worker: Ion Jasso MD AST [Catalytic activity/Vol] 25 U/L Normal -35 [facility] Comment on above: Result Comment: Spec imen hemolysis has exceeded the interference as defined by Joycelyn. Value may be falsely increased. Suggest recollection if clinically indicated. Performed By: #### C REBECA PAYNE, CP #### [facility] [address] [place] [address] Dr[address] [place], [place] 4510183 Nephrology Social Worker: Ion Jasso MD Bilirubin [Mass/Vol] mg/dL Normal 0.00-1.20 [facility] Comment on above: Performed By: #### C REBECA PAYNE, CP #### [address] [place], [place] [address]83 Nephrology Social Worker: Ion Jasso MD BUN/CRE Ratio 9 Normal 9-20 [facility] Comment on above: Performed By: #### C REBECA PAYNE, CP #### [facility] [address] [place] [address] Dr[place], [place] 6996683 Nephrology Social Worker: Ion Jasso MD Calcium [Mass/Vol] 9.8 mg/dL Normal 8.6-10.4 [facility] Comment on above: Performed By: #### C ELMER LIP, CP #### [facility] [address] [place] [address] Dr[place], [place] 5471883 Nephrology Social Worker: Ion Jasso MD Chloride [Moles/Vol] 103 mmol/L Normal 98-107 [facility] Comment on above: Performed By: #### C REBECA PAYNE, CP #### [facility] [address] [place] [address] Nephrology Social Worker: Ion Jasso MD CO2 [Moles/Vol] 22 mmol/L Normal 20-31 [facility] Comment on above: Performed By: #### C REBECA PAYNE, CP #### [facility] [address] [place], [place] 6430283 Nephrology Social Worker: Ion Jasso MD Creatinine [Mass/Vol] 0.8 mg/dL Normal 0.50-0.90 [facility] Comment on above: Performed By: #### C REBECA PAYNE, CP #### [facility] [address] [place] [address] Nephrology Social Worker: Ion Jasso MD GFR/1.73 sq M.predicted among non-blacks MDRD (S/P/Bld) [Vol rate/Area] mL/min/{1.73_m2} Normal >60 [facility] Comment on above: Result Comment: These results [...] renal tubular secretion. Performed By: #### C REBECA PAYNE, CP #### [facility] [address] [place] [address] Nephrology Social Worker: Ion Jasos MD Glucose [Mass/Vol] 96 mg/dL Normal 74-99 [facility] Comment on above: Performed By: #### C REBECA PAYNE, CP #### [facility] [address] [place], [place] 8263183 Nephrology Social Worker: Ion Jasso MD Potassium [Moles/Vol] 4.6 mmol/L Normal 3.7-5.3 [facility] Comment on above: Result Comment: Spec imen hemolysis has exceeded the interference as defined by Joycelyn. Value may be falsely increased. Suggest recollection if clinically indicated. Performed By: #### C DP LIP, CP #### [facility] [address] [place], [place] [address]37883 Nephrology Social Worker: Ion Jasso MD Protein [Mass/Vol] 7.0 g/dL Normal 6.6-8.7 [facility] Comment on above: Performed By: #### C ELMER LIP, CP #### [facility] [address] [place], [place] 3209683 Nephrology Social Worker: Ion Jasso MD Sodium [Moles/Vol] 137 mmol/L Normal 136-145 [facility] Comment on above: Performed By: #### C REBECA PAYNE, CP #### [address] [place], [place] 9103883 Nephrology Social Worker: Ion Jasso MD Urea nitrogen [Mass/Vol] 7 mg/dL Normal 6-20 [facility] Comment on above: Performed By: #### C REBECA PAYNE, CP #### [address] [place], [place] 1671683 Nephrology Social Worker: Ion Jasso MD Lactic Acidon 01-07-2024 Lactate [Moles/Vol] 1.3 mmol/L Normal 0.5-2.2 [facility] Comment on above: Performed By: #### L ACTIC #### [facility] [address] [place], [place] 4617183 Nephrology Social Worker: Ion Jasso MD Lipaseon 01-07-2024 Lipase [Catalytic activity/Vol] 144 U/L High 13-60 [facility] Comment on above: Performed By: #### C DP LIP, CP #### [facility] [address] [place], [place] [address]642483 Nephrology Social Worker: Ion Jasso MD Urinalysis w/ Microon 2023 Bilirubin, SemiQt,Ur Negative Normal NEG [facility] Comment on above: Performed By: #### U AMIC #### [facility] [address] [place], [place] 5165783 Nephrology Social Worker: Ion Jasso MD Blood, Urine Negative Normal NEG [facility] Comment on above: Performed By: #### U AMIC #### [facility] [address] [place], [place] 3166283 Nephrology Social Worker: Ion Jasso MD Clarity (U) Clear Normal CLEAR [facility] Comment on above: Performed By: #### U AMIC #### [facility] [address] [place], [place] 7592583 Nephrology Social Worker: Ion Jasso MD Color (U) Yellow Normal YEL [facility] Comment on above: Performed By: #### U AMIC #### [facility] [address] [place] [address] Dr[place], [place] 8617783 Nephrology Social Worker: Ion Jasso MD Epithelial cells LM Ql (Urine sed) 0 TO 2 Normal 0-25 [facility] Comment on above: Performed By: #### U AMIC #### [facility] [address] [place], [place] [address]2483 Nephrology Social Worker: Ion Jasso MD Glucose Ql (U) Negative Normal NEG [facility] Comment on above: Performed By: #### U AMIC #### [facility] [address] [place], [place] 5684183 Nephrology Social Worker: Ion Jasso MD Ketones Ql (U) Negative Normal NEG [facility] Comment on above: Performed By: #### U AMIC #### [facility] [address] [place], [place] 870[address]83 Nephrology Social Worker: Ion Jasso MD Leukocyte esterase Test strip Ql (U) Negative Normal NEG [facility] Comment on above: Performed By: #### U AMIC #### [facility] [address] [place], [place] 514[address]83 Nephrology Social Worker: Ion Jasso MD Nitrite,Ur Negative Normal NEG [facility] Comment on above: Performed By: #### U AMIC #### [facility] [address] [place], [place] 0155683 Nephrology Social Worker: Ion Jasso MD PH,Ur 6.0 Normal 5.0-9.0 [facility] Comment on above: Performed By: #### U AMIC #### [facility] [address] [place], [place] 160[address]483 Nephrology Social Worker: Ion Jasso MD Protein Ql (U) Negative Normal NEG [facility] Comment on above: Performed By: #### U AMIC #### [facility] [address] [place], [facility] Nephrology Social Worker: Ion Jasso MD Spec. [place],Ur 1.010 Normal 1.010-1.02 0 [facility] Comment on above: Performed By: #### U AMIC #### [facility] [address] [place], [place] 9244483 Nephrology Social Worker: Ion Jasso MD Urine RBC's None Normal 0-2 [facility] Comment on above: Performed By: #### U AMIC #### [facility] [address] [place], [place] 1004583 Nephrology Social Worker: Ion Jasso MD Urine WBC's 0 TO 2 Normal 0-5 [facility] Comment on above: Performed By: #### U AMIC #### [facility] [address] [place], [place] [address] Nephrology Social Worker: Ion Jasso MD Urobilinogen,Ur Normal Normal 0.0-1.0 [facility] Comment on above: Performed By: #### U AMIC #### [facility] [address] [place] [address] Nephrology Social Worker: Ion Jasso MD BASIC METABOLIC PANLon 12-28 Anion gap [Moles/Vol] 8 mmol/L Normal 5-15 [facility] Comment on above: Performed By: #### C BCA, CMP, 3040-3, 42041-1, 74517-6, 56382- 9 #### [facility] ([id number]) [address] [place] [address] Calcium [Mass/Vol] 9.7 mg/dL Normal 8.5-10.5 [facility] Comment on above: Performed By: #### C BCA, CMP, 3040-3, 26489-8, 70167-8, 07359- 9 #### [facility] ([id number]) [address] [place] [address] 37314 Chloride [Moles/Vol] 106 mmol/L Normal 98-109 [facility] Comment on above: Performed By: #### C BCA, CMP, 3040-3, 83715-6, 80505-5, 76504- 9 #### [facility] ([id number]) [address] [place] [address] 99766 CO2 [Moles/Vol] 24 mmol/L Normal 22-32 [facility] Comment on above: Performed By: #### C BCA, CMP, 3040-3, 54592-6, 60563-9, 81045- 9 #### [facility] ([id number]) [address] [place] [address] 65900 Creatinine [Mass/Vol] 0.88 mg/dL Normal 0.40-1.00 [facility] Comment on above: Result Comment: METH OD TRACEABLE TO IDMS STANDARD Performed By: #### C BCA, CMP, 3040-3, 72456-3, 79398-2, 92632-6 #### [facility] ([id number]) [address] [place] [address] 95177 GFR/1.73 sq M.predicted among non-blacks MDRD (S/P/Bld) [Vol rate/Area] 78 mL/min/{1.73_m2} Normal >59 [facility] Comment on above: Result Comment: Reported eGFR is based on the CKD-EPI 2020 equation that does not use a race coefficient. Performed By: #### C BCA, CMP, 3040-3, 23393-8, 71376-4, 08067-5 #### [facility] ([id number]) [address] [place] [address] 87670 Glucose [Mass/Vol] 82 mg/dL Normal 65-99 [facility] Comment on above: Performed By: #### C BCA, CMP, 3040-3, 46025-8, 43131-3, - 9 #### [facility] ([id number]) [address] [place] [address] 11305 Potassium [Moles/Vol] 4.2 mmol/L Normal 3.5-5.0 [facility] Comment on above: Result Comment: SPEC IMEN HEMOLYZED, RESULTS INCREASED Performed By: #### C BCA, CMP, 3040-3, 18600-7, 94405-7, 95188-0 #### [facility] ([id number]) [address] [place] [address] 71888 Sodium [Moles/Vol] 138 mmol/L Normal 134-146 [facility] Comment on above: Performed By: #### C BCA, CMP, 3040-3, 63502-9, 85429-1, 92390- 9 #### [facility] ([id number]) [address] [place] [address] 21367 Urea nitrogen [Mass/Vol] 12 mg/dL Normal 5-23 [facility] Comment on above: Performed By: #### C BCA, CMP, 3040-3, 50129-1, 49230-3, 28776- 9 #### [facility] ([id number]) [address] [place] [address] 60202 CBC AND AUTO DIFFon 12-29-19 24 ABSOLUTE BASOPHIL 0.1 X10E9/L Normal 0.0-0.2 [facility] Comment on above: Performed By: #### C BCA, CMP, 3040-3, 99090-1, 32847-9, 39564- 9 #### [facility] ([id number]) [address] [place] [address] 83665 ABSOLUTE NEUTROPHIL 3.9 X10E9/L Normal 1.5-6.6 [facility] Comment on above: Performed By: #### C BCA, CMP, 3040-3, 13909-6, 07277-7, 53005- 9 #### [facility] ([id number]) [address] [place] [address] 96497 Basophils/100 WBC (Bld) 1.3 % Normal [facility] Comment on above: Performed By: #### C BCA, CMP, 3040-3, 24346-8, 86021-1, 41266- 9 #### [facility] ([id number]) [address] [place] [address] 20552 Eosinophils (Bld) [#/Vol] 0.2 10*3/uL Normal 0.0-0.4 [facility] Comment on above: Performed By: #### C BCA, CMP, 3040-3, 28040-0, 80078-4, 11950- 9 #### [facility] ([id number]) [address] [place] [address] 63626 Eosinophils/100 WBC (Bld) 2.3 % Normal [facility] Comment on above: Performed By: #### C BCA, CMP, 3040-3, 20028-1, 17071-2, 46851- 9 #### [facility] ([id number]) [address] [place] [address] 16452 Erythrocyte distribution width (RBC) [Ratio] 13.2 % Normal 11.5-15.0 [facility] Comment on above: Performed By: #### C BCA, CMP, 3040-3, 90273-3, 95354-9, 05159- 9 #### [facility] ([id number]) [address] [place] [address] 86428 Hematocrit (Bld) [Volume fraction] 41.8 % Normal 35-47 [facility] Comment on above: Performed By: #### C BCA, CMP, 3040-3, 17990-2, 12602-9, 37230- 9 #### [facility] ([id number]) [address] [place] [address] 34727 Hemoglobin (Bld) [Mass/Vol] 14.3 g/dL Normal 11.7-15.5 [facility] Comment on above: Performed By: #### C EZEQUIEL, CMP, 3040-3, 09080-7, 27860-8, 10491- 9 #### [facility] ([id number]) [address] [place] [address] 06799 Lymphocytes (Bld) [#/Vol] 2.5 10*3/uL Normal 1.0-3.5 [facility] Comment on above: Performed By: #### C BCA, CMP, 3040-3, 02216-6, 85551-4, 19854- 9 #### [facility] ([id number]) [address] [place] [address] 36223 Lymphocytes/100 WBC (Bld) 33.1 % Normal [facility] Comment on above: Performed By: #### C BCA, CMP, 3040-3, 57026-6, 57712-6, 21144- 9 #### [facility] ([id number]) [address] [place] [address] 52247 MCH (RBC) [Entitic mass] 34.0 pg Normal 27-34 [facility] Comment on above: Performed By: #### C BCA, CMP, 3040-3, 69690-8, 62577-8, - 9 #### [facility] ([id number]) [address] [place] [address] 36557 MCHC (RBC) [Mass/Vol] 34.1 g/dL Normal 32-36 [facility] Comment on above: Performed By: #### C BCA, CMP, 3040-3, 96443-2, 25082-2, - 9 #### [facility] ([id number]) [address] [place] [address] 40059 MCV (RBC) [Entitic vol] 100 fL Normal 80-100 [facility] Comment on above: Performed By: #### C BCA, CMP, 3040-3, 57443-3, 44940-6, - 9 #### [facility] ([id number]) [address] [place] [address] 48556 Monocytes (Bld) [#/Vol] 0.9 10*3/uL Normal 0-0.9 [facility] Comment on above: Performed By: #### C BCA, CMP, 3040-3, 65744-9, 22068-1, - 9 #### [facility] ([id number]) [address] [place] [address] 29824 Monocytes/100 WBC (Bld) 12.0 % Normal [facility] Comment on above: Performed By: #### C BCA, CMP, 3040-3, 30472-7, 63558-9, - 9 #### [facility] ([id number]) [address] [place] [address] 29443 Neutrophils/100 WBC (Bld) 51.3 % Normal [facility] Comment on above: Performed By: #### C BCA, CMP, 3040-3, 90321-1, 16343-0, 95823- 9 #### [facility] ([id number]) [address] [place] [address] 57154 Platelet mean volume (Bld) [Entitic vol] 8.2 fL Normal 7-12 [facility] Comment on above: Performed By: #### C BCA, CMP, 3040-3, 62310-8, 12013-8, 62318- 9 #### [facility] ([id number]) [address] [place] [address] 37542 Platelets (Bld) [#/Vol] 266 10*3/uL Normal 150-450 [facility] Comment on above: Performed By: #### C BCA, CMP, 3040-3, 70366-1, 09377-4, 34222- 9 #### [facility] ([id number]) [address] [place] [address] 81607 RBC COUNT 4.19 X10E12/L Normal 3.80-5.20 [facility] Comment on above: Performed By: #### C BCA, CMP, 3040-3, 39525-6, 61738-0, 04049- 9 #### [facility] ([id number]) [address] [place] [address] 10531 WBC (Bld) [#/Vol] 7.7 10*3/uL Normal 4.0-11.0 [facility] Comment on above: Performed By: #### C BCA, CMP, 3040-3, 34589-5, 90845-9, 32844- 9 #### [facility] ([id number]) [address] [place] [address] ABDOMEN AND PELVIS WO CON Ton 12-29-2023 CT ABDOMEN AND PELVIS WO CONT CT ABDOMEN AND PELVIS WO CONT CLINICAL INFORMATION: Abdominal pain, acute, nonlocalized. Epigastric pain. Acute abdominal pain. TECHNIQUE: CT Abdomen and Pelvis without intravenous contrast. All CT scans at this facility use dose modulation, iterative reconstruction, and/or weight based dosing when appropriate to reduce radiation dose to as low as reasonably achievable. COMPARISON: 04/11/2023 FINDINGS: No pleural or pericardial effusions lung bases. No lower lung consolidation seen. The liver, adrenal glands, pancreas and spleen appeared unremarkable. Small bowel is nondilated. No enlarged mesenteric or retroperitoneal lymph nodes. No renal collecting system dilatation. Assessment of the abdominal and pelvic viscera is compromised by absence of IV contrast. Atherosclerotic abdominal aorta. No free pelvic fluid. No enlarged pelvic lymph nodes. Urinary bladder is grossly unremarkable. Appendix is seen in the left hemipelvis and unremarkable. Multilevel degenerative change of the lumbar spine. IMPRESSION: * No definitive acute abdominal or pelvic process identified. Finalized by Agustin Presley MD on 12/29/2023 6:27 AM Normal [facility] ETHANOLon 12-29-2023 Ethanol [Mass/Vol] mg/dL Normal 0.00-0.08 [facility] Comment on above: Result Comment: This report is intended for use in clinical monitoring or management of patients. Performed By: #### C BONNIE NIEVES, 3040-3, 24097-8, 71923-9, 41332-7 #### [facility] ([id number]) [address] [place] [address] Fibrin D-dimer DDU (PPP) [Ma ss/Vol]on 12-29-2023 D DIMER <150 Normal <255 [facility] Comment on above: Result Comment: Results <255 ng/mL DDU: The presence of a VTE can safely be excluded with a negative D-Dimer result and Wells score. A negative result doesn't exclude the possibility of DIC. The test be repeated along with other diagnostic tests if the patient's symptoms persist or worsen. [email or web address] Performed By: #### C BONNIE NIEVES, 3040-3, 51021-1, 02169-7, 64039-8 #### [facility] ([id number]) [address] [place] [address] 29810 LIPASEon 12-29-2023 Lipase [Catalytic activity/Vol] 55 U/L High 17-40 [facility] Comment on above: Performed By: #### C BCA, CMP, 3040-3, 26225-5, 33612-0, 98980- 9 #### [facility] ([id number]) [address] [place] [address] 52228 LIVER PANELon 12-29-2023 Albumin [Mass/Vol] 3.9 g/dL Normal 3.2-5.3 [facility] Comment on above: Performed By: #### C BCA, CMP, 3040-3, 15452-1, 37585-6, 02883- 9 #### [facility] ([id number]) [address] [place] [address] 23437 ALP [Catalytic activity/Vol] 111 U/L Normal 39-130 [facility] Comment on above: Performed By: #### C BCA, CMP, 3040-3, 56719-1, 51969-0, 28792- 9 #### [facility] ([id number]) [address] [place] [address] 36691 ALT [Catalytic activity/Vol] 11 U/L Normal 0-31 [facility] Comment on above: Performed By: #### C BCA, CMP, 3040-3, 68838-7, 40044-1, 87209- 9 #### [facility] ([id number]) [address] [place] [address] 75107 AST [Catalytic activity/Vol] 23 U/L Normal 0-41 [facility] Comment on above: Performed By: #### C BCA, CMP, 3040-3, 05970-3, 09223-0, 55423- 9 #### [facility] ([id number]) [address] [place] [address] 30181 Bilirubin [Mass/Vol] 0.5 mg/dL Normal 0.3-1.2 [facility] Comment on above: Result Comment: RESU LTS QUESTIONABLE DUE TO HEMOLYSIS Performed By: #### C BCA, CMP, 3040-3, 09151-0, 86848-4, 41218-7 #### [facility] ([id number]) [address] [place] [address] 95738 Bilirubin.direct [Mass/Vol] 0.3 mg/dL Normal 0.0-0.4 [facility] Comment on above: Performed By: #### C BCA, CMP, 3040-3, 54167-3, 61350-3, - 9 #### [facility] ([id number]) [address] [place] [address] 52048 Protein [Mass/Vol] 6.9 g/dL Normal 6.0-8.0 [facility] Comment on above: Performed By: #### C BCA, CMP, 3040-3, 25169-1, 71353-1, - 9 #### [facility] ([id number]) [address] [place] [address] 78206 MAGNESIUMon 12-29-2023 Magnesium [Mass/Vol] 2.2 mg/dL Normal 1.8-2.6 [facility] Comment on above: Performed By: #### C BCA, CMP, 3040-3, 30234-2, 15196-1, - 9 #### [facility] ([id number]) [address] [place] [address] 14609 Troponin I.cardiac High sens itivity method [Mass/Vol]on 12-29-2023 1 HOUR TROP I, HIGH SENSITIVITY 2 ng/L Normal <16 [facility] Comment on above: Performed By: #### C BCA, CMP, 3040-3, 52154-0, 76010-1, 16116- 9 #### [facility] ([id number]) [address] [place] [address] 61226 TROPONIN I, HIGH SENSITIVITY 2 ng/L Normal <16 [facility] Comment on above: Performed By: #### C BCA, CMP, 3040-3, 22347-3, 20915-3, 58186- 9 #### [facility] ([id number]) [address] [place] [address], [place] [address] CBC with Diffon 09-29-2023 Abs. Basophil 0.05 k/uL Normal 0.00-0.20 [facility] Comment on above: Performed By: #### C DP, LIP, CP #### [facility] [address] [place] [address] Nephrology Social Worker: Ion Jasso MD Abs.Imm.Granulocyte <0.03 Normal 0.00-0.30 [facility] Comment on above: Performed By: #### C DP, LIP, CP #### [address] [place] [id number] Nephrology Social Worker: Ion Jasso MD Abs.Neutrophil (Seg) 8.10 k/uL Normal 1.50-8.10 [facility] Comment on above: Performed By: #### C DP, LIP, CP #### [address] [place] [address] Nephrology Social Worker: Ion Jasso MD Basophils/100 WBC (Bld) 0 % Normal 0-2 [facility] Comment on above: Performed By: #### C DP, LIP, CP #### [facility] [address] [place] [address] [place] [address] Nephrology Social Worker: Ion Jasso MD Eosinophils (Bld) [#/Vol] 0.05 10*3/uL Normal 0.00-0.44 [facility] Comment on above: Performed By: #### C DP, LIP, CP #### [facility] [address] [place], [place] [address] Nephrology Social Worker: Ion Jasso MD Eosinophils/100 WBC (Bld) 0 % Low 1-4 [facility] Comment on above: Performed By: #### C DP, LIP, CP #### [address] [place] [address] Nephrology Social Worker: Ion Jasso MD Erythrocyte distribution width (RBC) [Ratio] 12.9 % Normal 11.8-14.4 [facility] Comment on above: Performed By: #### C DP LIP, CP #### [address] [place], [place] [address] Nephrology Social Worker: Ion Jasso MD Hematocrit (Bld) [Volume fraction] 40.3 % Normal 36.3-47.1 [facility] Comment on above: Performed By: #### C DP LIP, CP #### [address] [place] [address] Nephrology Social Worker: Ion Jasso MD Hemoglobin (Bld) [Mass/Vol] 14.2 g/dL Normal 11.9-15.1 [facility] Comment on above: Performed By: #### C DP LIP, CP #### [address] [place] [address] Nephrology Social Worker: Ion Jasso MD Immature granulocytes/100 WBC (Bld) 0 % Normal 0 [facility] Comment on above: Performed By: #### C DP LIP, CP #### [address] [place], [place] [address] Nephrology Social Worker: Ion Jasso MD Lymphocytes (Bld) [#/Vol] 2.18 10*3/uL Normal 1.10-3.70 [facility] Comment on above: Performed By: #### C DP LIP, CP #### [address] [place], [place] [address]83 Nephrology Social Worker: Ion Jasso MD Lymphocytes/100 WBC (Bld) 19 % Low 24-43 [facility] Comment on above: Performed By: #### C DP, LIP, CP #### [facility] [address] [place] [address] [place] [address] Nephrology Social Worker: Ion Jasso MD MCH (RBC) [Entitic mass] 33.8 pg High 25.2-33.5 [facility] Comment on above: Performed By: #### C DP, LIP, CP #### [address] [place], [place] [address] Nephrology Social Worker: Ion Jasso MD MCHC (RBC) [Mass/Vol] 35.2 g/dL High 28.4-34.8 [facility] Comment on above: Performed By: #### C ELMER LIP, CP #### [address] [place] [address] Nephrology Social Worker: Ion Jasso MD MCV (RBC) [Entitic vol] 96.0 fL Normal 82.6-102.9 [facility] Comment on above: Performed By: #### C ELMER LIP, CP #### [address] [place], [facility] Nephrology Social Worker: Ion Jasso MD Monocytes (Bld) [#/Vol] 0.94 10*3/uL Normal 0.10-1.20 [facility] Comment on above: Performed By: #### C DP LIP, CP #### [address] [place], [facility] ( Nephrology Social Worker: Ion Jasso MD Monocytes/100 WBC (Bld) 8 % Normal 3-12 [facility] Comment on above: Performed By: #### C ELMER LIP, CP #### [address] [place], [place] [address]83 Nephrology Social Worker: Ion Jasso MD Neutrophil (Seg) 73 % High 36-65 [facility] Comment on above: Performed By: #### C DP LIP, CP #### [address] [place], [facility] Nephrology Social Worker: Ion Jasso MD NRBC Automated 0.0 per 100 WBC Normal 0.0 [facility] Comment on above: Performed By: #### C DP LIP, CP #### [facility] [address] [place], [facility] Nephrology Social Worker: Ion Jasso MD Platelet mean volume (Bld) [Entitic vol] 9.4 fL Normal 8.1-13.5 [facility] Comment on above: Performed By: #### C DP LIP, CP #### [address] [place], [place] [address] Nephrology Social Worker: Ion Jasso MD Platelets (Bld) [#/Vol] 193 10*3/uL Normal 138-453 [facility] Comment on above: Performed By: #### C ELMER LIP, CP #### [address] [place], [facility] Nephrology Social Worker: Ion Jasso MD RBC (Bld) [#/Vol] 4.20 10*6/uL Normal 3.95-5.11 [facility] Comment on above: Performed By: #### C DP LIP, CP #### [address] [place], [facility] Nephrology Social Worker: Ion Jasso MD WBC (Bld) [#/Vol] 11.3 10*3/uL Normal 3.5-11.3 [facility] Comment on above: Performed By: #### C DP LIP, CP #### [address] [place], [facility] Nephrology Social Worker: Ion Jasso MD Comp Metabolic Profon 2023 Albumin [Mass/Vol] 4.4 g/dL Normal 3.5-5.2 [facility] Comment on above: Performed By: #### C DP, LIP, CP #### [facility] [address] [place], [place] [phone] Nephrology Social Worker: Ion Jasso MD Albumin/Glob Ratio 1.9 Normal 1.0-2.5 [facility] Comment on above: Performed By: #### C DP, LIP, CP #### [facility] [address] [place], [place] [id number] Nephrology Social Worker: Ion Jasso MD Alkaline Phos 123 U/L High 35-104 [facility] Comment on above: Performed By: #### C DP, LIP, CP #### [facility] [address] [place], [place] 3279483 Nephrology Social Worker: Ion Jasso MD ALT [Catalytic activity/Vol] 15 U/L Normal 5-33 [facility] Comment on above: Performed By: #### C DP, LIP, CP #### [facility] [address] [place], [place] [phone] Nephrology Social Worker: Ion Jasso MD Anion gap [Moles/Vol] 10 mmol/L Normal 9-17 [facility] Comment on above: Performed By: #### C DP, LIP, CP #### [address] [place], [place] 3887483 Nephrology Social Worker: Ion Jasso MD AST [Catalytic activity/Vol] 21 U/L Normal <32 [facility] Comment on above: Performed By: #### C DP, LIP, CP #### [facility] [address] [place], [place] [address]83 Nephrology Social Worker: Ion Jasso MD Bilirubin [Mass/Vol] 0.3 mg/dL Normal 0.3-1.2 [facility] Comment on above: Performed By: #### C DP, LIP, CP #### [facility] [address] [place], [place] [address]83 Nephrology Social Worker: Ion Jasso MD BUN/CRE Ratio 13 Normal 9-20 [facility] Comment on above: Performed By: #### C DP, LIP, CP #### [facility] [address] [place], [place] 5201783 Nephrology Social Worker: Ion Jasso MD Calcium [Mass/Vol] 10.0 mg/dL Normal 8.6-10.4 [facility] Comment on above: Performed By: #### C DP, LIP, CP #### [facility] [address] [place] [address] Nephrology Social Worker: Ion Jasso MD Chloride [Moles/Vol] 104 mmol/L Normal 98-107 [facility] Comment on above: Performed By: #### C DP LIP, CP #### [facility] [address] [place], [place] 42[address]383 Nephrology Social Worker: Ion Jasso MD CO2 [Moles/Vol] 24 mmol/L Normal 20-31 [facility] Comment on above: Performed By: #### C DP LIP, CP #### [facility] [address] [place], [place] [address]83 Nephrology Social Worker: Ion Jasso MD Creatinine [Mass/Vol] 0.8 mg/dL Normal 0.5-0.9 [facility] Comment on above: Performed By: #### C DP LIP, CP #### [facility] [address] [place], [place] [address]83 Nephrology Social Worker: Ion Jasso MD GFR/1.73 sq M.predicted among non-blacks MDRD (S/P/Bld) [Vol rate/Area] 88 mL/min/{1.73_m2} Normal >60 [facility] Comment on above: Result Comment: These results [...] renal tubular secretion. Performed By: #### C REBECA PAYNE, CP #### [facility] [address] [place], [place] [address]83 Nephrology Social Worker: Ion Jasso MD Glucose [Mass/Vol] 126 mg/dL High 70-99 [facility] Comment on above: Performed By: #### C ELMER LIP, CP #### [facility] [address] [place], [place] 3634183 Nephrology Social Worker: Ion Jasso MD Potassium [Moles/Vol] 3.5 mmol/L Low 3.7-5.3 [facility] Comment on above: Performed By: #### C REBECA PAYNE, CP #### [address] [place], [place] 5765483 Nephrology Social Worker: Ion Jasso MD Protein [Mass/Vol] 6.7 g/dL Normal 6.4-8.3 [facility] Comment on above: Performed By: #### C REBECA PAYNE, CP #### [address] [place], [place] 7205883 Nephrology Social Worker: Ion Jasso MD Sodium [Moles/Vol] 138 mmol/L Normal 135-144 [facility] Comment on above: Performed By: #### C REBECA PAYNE, CP #### [facility] [address] [place] [address] Dr. [place], [place] [phone] Nephrology Social Worker: Ion Jasso MD Urea nitrogen [Mass/Vol] 10 mg/dL Normal 6-20 [facility] Comment on above: Performed By: #### C REBECA PAYNE, CP #### [facility] [address] [place] [address] Nephrology Social Worker: Ion Jasso MD Lipaseon 09-29-2023 Lipase [Catalytic activity/Vol] 141 U/L High 13-60 [facility] Comment on above: Performed By: #### C ELMER LIP, CP #### [facility] [address] [place], [place] 486[address]83 Nephrology Social Worker: Ion Jasso MD UA w/Reflex Cultureon 2023 Bilirubin, SemiQt,Ur Negative Normal NEG [facility] Comment on above: Performed By: #### U AX, UMICAO #### [facility] [address] [place], [place] [address]83 Nephrology Social Worker: Ion Jasso MD Blood, Urine Negative Normal NEG [facility] Comment on above: Performed By: #### U AX, UMICAO #### [facility] [address] [place], [place] [id number] Nephrology Social Worker: Ion Jasso MD Clarity (U) Clear Normal CLEAR [facility] Comment on above: Performed By: #### U AX, UMICAO #### [facility] [address] [place], [place] [id number] Nephrology Social Worker: Ion Jasso MD Color (U) Yellow Normal YEL [facility] Comment on above: Performed By: #### U AX, UMICAO #### [address] [place] [address] Nephrology Social Worker: Ion Jasso MD Glucose Ql (U) Negative Normal NEG [facility] Comment on above: Performed By: #### U AX, UMICAO #### [facility] [address] [place], [place] [id number] Nephrology Social Worker: Ion Jasso MD Ketones Ql (U) Negative Normal NEG [facility] Comment on above: Performed By: #### U AX, UMICAO #### [facility] [address] [place], [place] [id number] Nephrology Social Worker: Ion Jasso MD Leukocyte esterase Test strip Ql (U) Negative Normal NEG [facility] Comment on above: Performed By: #### U AX, UMICAO #### [facility] [address] [place], [place] [id number] Nephrology Social Worker: Ion Jasso MD Nitrite,Ur Negative Normal NEG [facility] Comment on above: Performed By: #### U AX, UMICAO #### [facility] [address] [place] [address] [place], [place] [id number] Nephrology Social Worker: Ion Jasso MD PH,Ur 6.0 Normal 5.0-9.0 [facility] Comment on above: Performed By: #### U AX, UMICAO #### [address] [place], [place] [address] Nephrology Social Worker: Ion Jasso MD Protein Ql (U) Negative Normal NEG [facility] Comment on above: Performed By: #### U AX, UMICAO #### [facility] [address] [place] [address] [place], [place] [id number] Nephrology Social Worker: Ion Jasso MD Spec. [place],Ur >1.030 High 1.010-1.02 0 [facility] Comment on above: Performed By: #### U AX, UMICAO #### [address] [place] [address] Nephrology Social Worker: Ion Jasso MD Urobilinogen,Ur Normal Normal 0.0-1.0 [facility] Comment on above: Performed By: #### U AX, UMICAO #### [facility] [address] [place] [address] [place], [place] [phone] Nephrology Social Worker: Ion Jasso MD Urinalysis,Microon 4 Bacteria TRACE Abnormal NONE [facility] Comment on above: Performed By: #### U AX, UMICAO #### [facility] [address] [place], [place] [address] Nephrology Social Worker: Ion Jasso MD Epithelial cells LM Ql (Urine sed) 2 TO 5 Normal 0-25 [facility] Comment on above: Performed By: #### U AX, UMICAO #### [facility] [address] [place] [address] Nephrology Social Worker: Ion Jasso MD Urine RBC's 0 TO 2 Normal 0-2 [facility] Comment on above: Performed By: #### U AX, UMICAO #### [facility] [address] [place] [address] Nephrology Social Worker: Ion Jasso MD Urine WBC's 0 TO 2 Normal 0-5 [facility] Comment on above: Performed By: #### U AX, UMICAO #### [facility] [address] 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 LAB, [facility] (narrative) [facility] Alanine aminotransferase [En zymatic activity/volume] in Serum or PlasmaOrdered By: Xiang Kellogg on 04-18-2023 ALT [Catalytic activity/Vol] 9 U/L Normal 7-52 [place] Comment on above: Performed By: #### L IPASE, CBC, CMP, HS TROP #### [facility] [address] Albumin [Mass/volume] in Ser um or Plasma by Bromocresol green (BCG) dye binding methoOrdered By: Xiang Kellogg on 04-18-2023 Albumin BCG dye [Mass/Vol] 4.5 g/dL 3.5-5.7 [place] Alkaline phosphatase [Enzyma tic activity/volume] in Serum or PlasmaOrdered By: Xiang Kellogg on 04-18-2023 ALP [Catalytic activity/Vol] 107 U/L High 34-104 [place] Comment on above: Performed By: #### L IPASE, CBC, CMP, HS TROP #### [address] Amylase [Enzymatic activity/ volume] in Serum or PlasmaOrdered By: Xiang Kellogg on 04-18-2023 Amylase [Catalytic activity/Vol] 72 U/L Normal 29-103 [place] Comment on above: Performed By: #### L IPASE, CBC, CMP, HS TROP #### [address] Aspartate aminotransferase [ Enzymatic activity/volume] in Serum or PlasmaOrdered By: Xiang Kellogg on 04-18-2023 AST [Catalytic activity/Vol] 14 U/L Normal 13-39 [place] Comment on above: Performed By: #### L IPASE, CBC, CMP, HS TROP #### [place] [address] [place] Automated basophil %Ordered By: Xiang Kellogg on 04-18-2023 Basophils/100 WBC (Bld) 0.8 % Normal . [place] Comment on above: Performed By: #### L IPASE, CBC, CMP, HS TROP #### [place] [address] [place] Automated basophil countOrde red By: Xiang Kellogg on 04-18-2023 Basophils (Bld) [#/Vol] 0.1 10*3/uL Normal 0.0-0.2 [place] Comment on above: Result Comment: PERF ORMED BY: [place] [address] PATHOLOGIST OIL ANALYST PAULA RODRIGUES M.D. Performed By: #### L IPASE, CBC, CMP, HS TROP #### [address] Automated blood monocyte cou ntOrdered By: Xiang Kellogg on 04-18-2023 Monocytes (Bld) [#/Vol] 0.6 10*3/uL Normal 0.0-0.8 [place] Comment on above: Performed By: #### L IPASE, CBC, CMP, HS TROP #### [facility] [address] [place] [address] Automated eosinophil %Ordere d By: Xiang Kellogg on 04-18-2023 Eosinophils/100 WBC (Bld) 0.2 % Normal . [place] Comment on above: Performed By: #### L IPASE, CBC, CMP, HS TROP #### [address] Automated eosinophil countOr dered By: Xiang Kellogg on 04-18-2023 Eosinophils (Bld) [#/Vol] 0.0 10*3/uL Normal 0.0-0.45 [place] Comment on above: Performed By: #### L IPASE, CBC, CMP, HS TROP #### [address] Automated monocyte %Ordered By: Xiang Kellogg on 04-18-2023 Monocytes/100 WBC (Bld) 5.4 % Normal . [place] Comment on above: Performed By: #### L IPASE, CBC, CMP, HS TROP #### [facility] [address] [place] [address] Automated neutrophil %Ordere d By: iXang Kellogg on 04-18-2023 Neutrophils/100 WBC (Bld) 80.8 % Normal . [place] Comment on above: Performed By: #### L IPASE, CBC, CMP, HS TROP #### [facility] [address] [place] [address] Basic Metabolic Panelon 04-09 Creatinine Clr Calc Pharmacy 64.32 Normal [facility] Comment on above: Performed By: #### L IPASE, CBC, CMP, HS TROP #### [facility] [address] [place] [address] GFR/1.73 sq M.predicted MDRD (S/P/Bld) [Vol rate/Area] mL/min/{1.73_m2} Normal [facility] Comment on above: Performed By: #### L IPASE, CBC, CMP, HS TROP #### [address] Bilirubin.direct [Mass/volum e] in Serum or PlasmaOrdered By: Xiang Kellogg on 04-18-2023 Bilirubin.direct [Mass/Vol] 0.00 mg/dL 0.03-0.18 [place] Comment on above: If the DBIL is less than 0.1, IBIL is not able to becalculated. Bilirubin.total [Mass/volume ] in Serum or PlasmaOrdered By: Xiang Kellogg on 04-18-2023 Bilirubin [Mass/Vol] 0.3 mg/dL Normal 0.3-1.0 [facility] Comment on above: Performed By: #### L IPASE, CBC, CMP, HS TROP #### [address] abdomen pelvis wo conon 0 04-18-2023 CT abdomen pelvis wo [facility] [place] [address] [place] [address] CT Scan Report Signed Patient: Chioma Arciniega MR#: [id number] : 1970 Acct:[id number] Age/Sex: 52 / F ADM Date: 04/18/23 Loc: ER Room: Type: [facility] ER Attending Dr: Copies to: Xiang [...] Rajeev Ulloa M.D.04/18/2023 5:07 PM Dictation Location: [place] [address] Transcribed By: RICA 04/18/231706 Dictated By: Rajeev Ulloa II, MD 04/18/231700 Signed By: 04/18/231706 Normal [facility] Calcium [Mass/volume] in Ser um or PlasmaOrdered By: Xiang Kellogg on 04-18-2023 Calcium [Mass/Vol] 11.1 mg/dL High 8.6-10.3 [facility] Comment on above: Performed By: #### L IPASE, CBC, CMP, HS TROP #### [place] [address] [place] Carbon dioxide, total [Moles /volume] in Serum or PlasmaOrdered By: Xiang Kellogg on 04-18-2023 CO2 [Moles/Vol] 30.2 mmol/L Normal 21.0-31.0 [facility] Comment on above: Performed By: #### L IPASE, CBC, CMP, HS TROP #### [address] Chloride [Moles/volume] in S erika or PlasmaOrdered By: Xiang Kellogg on 04-18-2023 Chloride [Moles/Vol] 103 mmol/L Normal 98-107 [facility] Comment on above: Performed By: #### L IPASE, CBC, CMP, HS TROP #### [place] [address] [place] Complete Blood Count Auto Di ffon 04-18-2023 Mean Corpuscular HGB Conc 34.3 g/dL Normal 32.0-35.0 [facility] Comment on above: Performed By: #### L IPASE, CBC, CMP, HS TROP #### [place] [address] [place] Monocytes/100 WBC (Bld) 16.25 % Normal 0.00-20.00 [facility] Comment on above: Performed By: #### L IPASE, CBC, CMP, HS TROP #### [facility] [address] [place] [address] [place] NRBC% 0.0 /100{WBC} Normal 0-0.5 [facility] Comment on above: Performed By: #### L IPASE, CBC, CMP, HS TROP #### [place] [address] [place] Creatinine [Mass/volume] in Serum or PlasmaOrdered By: Xiang Kellogg on 04-18-2023 Creatinine [Mass/Vol] 0.80 mg/dL Normal 0.60-1.20 [facility] Comment on above: Performed By: #### L IPASE, CBC, CMP, HS TROP #### [facility] [address] [place] [address] [place] Erythrocyte distribution wid th [Ratio] by Automated countOrdered By: Xiang Kellogg on 04-18-2023 Erythrocyte distribution width (RBC) [Ratio] 13.4 % Normal 11.9-15.3 [place] Comment on above: Performed By: #### L IPASE, CBC, CMP, HS TROP #### [facility] [address] [place] [address] [place] Erythrocytes [#/volume] in B lood by Automated countOrdered By: Xiang Kellogg on 04-18-2023 RBC (Bld) [#/Vol] 4.35 10*6/uL Normal 3.60-5.00 [facility] Comment on above: Performed By: #### L IPASE, CBC, CMP, HS TROP #### [facility] [address] [place] [address] Ethanol [Mass/volume] in Ser um or PlasmaOrdered By: Xiang Kellogg on 04-18-2023 Ethanol [Mass/Vol] mg/dL Normal [facility] Comment on above: Performed By: #### L IPASE, CBC, CMP, HS TROP #### [facility] [address] [place] [address] Ethanol [Mass/Vol] TNP [facility] Comment on above: Test not performed Ethyl Alcohol Profileon 04-09 Percent Ethanol Not performed Normal [facility] Comment on above: Result Comment: PERF ORMED BY: [place] [address] PATHOLOGIST OIL ANALYST PAULA RODRIGUES M.D. Performed By: #### L IPASE, CBC, CMP, HS TROP #### [facility] [address] [place] [address] [place] Glucose [Mass/volume] in Ser um or PlasmaOrdered By: Xiang Kellogg on 04-18-2023 Glucose [Mass/Vol] 108 mg/dL High 70-100 [facility] Comment on above: ADA recommended refe rence rangeRandom Glucose Reference Range is dependent on time and content of last meal. Glucose of more than 200 mg/dL in a nonstressed, ambulatory subject supports the diagnosis of Diabetes Mellitus. Result Comment: [facility] Glucose Reference Range is dependent on time and content of last meal. Glucose of more than 200 mg/dL in a nonstressed, ambulatory subject supports the diagnosis of Diabetes Mellitus. ADA recommended reference range Performed By: #### L IPASE, CBC, CMP, HS TROP #### [address] Hematocrit [Volume Fraction] of Blood by Automated countOrdered By: Xiang Kellogg on 04-18-2023 Hematocrit (Bld) [Volume fraction] 41.6 % Normal 34.0-46.4 [place] Comment on above: Performed By: #### L IPASE, CBC, CMP, HS TROP #### [address] Hemoglobin [Mass/volume] in BloodOrdered By: Xiang Kellogg on 04-18-2023 Hemoglobin (Bld) [Mass/Vol] 14.3 g/dL Normal 11.8-15.4 [place] Comment on above: Performed By: #### L IPASE, CBC, CMP, HS TROP #### [address] Hepatic Panelon 04-18-2023 Albumin [Mass/Vol] 4.5 g/dL Normal 3.5-5.7 [facility] Comment on above: Performed By: #### L IPASE, CBC, CMP, HS TROP #### [address] Bilirubin,Indirect 0.3 mg/dL Normal [facility] Comment on above: Performed By: #### L IPASE, CBC, CMP, HS TROP #### [address] Bilirubin.indirect [Mass/Vol] 0.00 mg/dL Low 0.03-0.18 [facility] Comment on above: Result Comment: If t he DBIL is less than 0.1, IBIL is not able to be calculated. Performed By: #### L IPASE, CBC, CMP, HS TROP #### [facility] [address] [place] [address] [place] Leukocytes [#/volume] correc aurelia for nucleated erythrocytes in Blood by Automated counOrdered By: Xiang Kellogg on 04-18-2023 WBC corrected for nucl RBC Auto (Bld) [#/Vol] 12.1 10*3/uL 3.8-11.6 [place] Leukocytes [#/volume] in Blo od by Automated countOrdered By: Xiang Kellogg on 04-18-2023 WBC (Bld) [#/Vol] 12.1 10*3/uL High 3.8-11.6 [facility] Comment on above: Performed By: #### L IPASE, CBC, CMP, HS TROP #### [address] Lipase [Enzymatic activity/v olume] in Serum or PlasmaOrdered By: Xiang Kellogg on 04-18-2023 Lipase [Catalytic activity/Vol] 47.0 U/L Normal 11.0-82.0 [place] Comment on above: Result Comment: PERF ORMED BY: [place] [address] PATHOLOGIST OIL ANALYST PAULA RODRIGUES M.D. Performed By: #### L IPASE, CBC, CMP, HS TROP #### [place] [address] [place] Lymphocytes [#/volume] in Bl ood by Automated countOrdered By: Xiang Kellogg on 04-18-2023 Lymphocytes (Bld) [#/Vol] 1.6 10*3/uL Normal 1.00-4.8 [place] Comment on above: Performed By: #### L IPASE, CBC, CMP, HS TROP #### [facility] [address] [place] [address] [place] Lymphocytes/100 leukocytes i n Blood by Automated countOrdered By: Xiang Kellogg on 04-18-2023 Lymphocytes/100 WBC (Bld) 12.8 % Normal . [place] Comment on above: Performed By: #### L IPASE, CBC, CMP, HS TROP #### [facility] [address] MCH [Entitic mass] by Automa aurelia countOrdered By: Xiang Kellogg on 04-18-2023 MCH (RBC) [Entitic mass] 32.7 pg Normal 24.7-34.3 [place] Comment on above: Performed By: #### L IPASE, CBC, CMP, HS TROP #### [facility] [address] MCHC Auto (RBC) [Mass/Vol]Or dered By: Xiang Kellogg on 04-18-2023 MCHC (RBC) [Mass/Vol] 34.3 g/dL 32.0-35.0 [facility] MCV [Entitic volume] by Auto mated countOrdered By: Xiang Kellogg on 04-18-2023 MCV (RBC) [Entitic vol] 95.5 fL Normal 80-100 [place] Comment on above: Performed By: #### L IPASE, CBC, CMP, HS TROP #### [facility] [address] [place] [address] Monocyte distribution width [Entitic volume] in Blood by AutomatedOrdered By: Xiang Kellogg on 04-18-2023 Monocyte distribution width Auto (Bld) [Entitic vol] 16.25 % 0.00-20.00 [place] Neutrophils [#/volume] in Bl ood by Automated countOrdered By: Xiang Kellogg on 04-18-2023 Neutrophils (Bld) [#/Vol] 9.8 10*3/uL High 1.8-7.7 [place] Comment on above: Performed By: #### L IPASE, CBC, CMP, HS TROP #### [facility] [address] [place] [address] No Panel InformationOrdered By: Xiang Kellogg on 04-18-2023 Estimated GFR (CKD-EPI) > 60.0 mL/Min [facility] Creatinine Clearance (Chem 64.32 [place] Nucleated erythrocytes [Pres ence] in Blood by Automated countOrdered By: Xiang Kellogg on 04-18-2023 Nucleated RBC Auto Ql (Bld) 0.0 /100{WBC} 0-0.5 [place] Platelet mean volume [Entiti c volume] in Blood by Automated countOrdered By: Xiang Kellogg on 04-18-2023 Platelet mean volume (Bld) [Entitic vol] 8.1 fL Normal 6.3-10.7 [place] Comment on above: Performed By: #### L IPASE, CBC, CMP, HS TROP #### [facility] [address] [place] [address] Platelets [#/volume] in Bloo d by Automated countOrdered By: Xiang Kellogg on 04-18-2023 Platelets (Bld) [#/Vol] 227 10*3/uL Normal 150-450 [place] Comment on above: Performed By: #### L IPASE, CBC, CMP, HS TROP #### [address] Potassium [Moles/volume] in Serum or PlasmaOrdered By: Xiang Kellogg on 04-18-2023 Potassium [Moles/Vol] 3.2 mmol/L Low 3.5-5.1 [facility] Comment on above: Performed By: #### L IPASE, CBC, CMP, HS TROP #### [facility] [address] [place] [address] Protein [Mass/volume] in Ser um or PlasmaOrdered By: Xiang Kellogg on 04-18-2023 Protein [Mass/Vol] 6.7 g/dL Normal 6.4-8.9 [facility] Comment on above: Performed By: #### L IPASE, CBC, CMP, HS TROP #### [facility] [address] [place] [address] Serum globulin measurement b y calculation (mass/volume)Ordered By: Xiang Kellogg on 04-18-2023 Globulin (S) [Mass/Vol] 2.2 g/dL [facility] Comment on above: Performed By: #### L IPASE, CBC, CMP, HS TROP #### [facility] [address] [place] [address] Serum or plasma albumin/glob ulin mass ratioOrdered By: Xiang Kellogg on 04-18-2023 Albumin/Globulin [Mass ratio] 2.0 {ratio} [facility] Comment on above: Performed By: #### L IPASE, CBC, CMP, HS TROP #### [facility] [address] [place] [address] Serum or plasma anion gap de terminationOrdered By: Xiang Kellogg on 04-18-2023 Anion gap [Moles/Vol] 10.0 mmol/L Normal 6.0-15.0 [facility] Comment on above: Performed By: #### L IPASE, CBC, CMP, HS TROP #### [address] Serum or plasma non-glucuron idated bilirubin measurement (mass/volume)Ordered By: Xiang Kellogg on 04-18-2023 Bilirubin.indirect [Mass/Vol] 0.3 mg/dL [place] Sodium [Moles/volume] in Ser um or PlasmaOrdered By: Xiang Kellogg on 04-18-2023 Sodium [Moles/Vol] 140 mmol/L Normal 136-145 [facility] Comment on above: Performed By: #### L IPASE, CBC, CMP, HS TROP #### [address] Urea nitrogen [Mass/volume] in Serum or PlasmaOrdered By: Xiang Kellogg on 04-18-2023 Urea nitrogen [Mass/Vol] 7 mg/dL Normal 7-25 [place] Comment on above: Performed By: #### L IPASE, CBC, CMP, HS TROP #### [facility] [address] [place] [address] CT abdomen pelvis w conon CT abdomen pelvis w con [facility] [place] [address] CT Scan Report Signed Patient: Chioma Arciniega MR#: [id number] : 1970 Acct:[id number] Age/Sex: 52 / F ADM Date: 04/11/23 Loc: ER Room: Type: [facility] ER Attending Dr: Copies to: Rivera Lopez [...] Nai Salazar M.D.04/12/2023 9:01 AM Dictation Location: [place] [address] Transcribed By: [facility] 04/12/23 0901 Dictated By: Nai Salazar MD 04/12/23 0856 Signed By: 04/12/23 09 Normal [facility] Activated partial thrombopla stin time (aPTT) in platelet poor plasma by coagulation aOrdered By: Rivera Lopez on 04-11-2023 aPTT Coag (PPP) [Time] 23.3 s 25.1-36.5 [facility] Comment on above: A hematocrit value g reater than 55% may lead to inaccurate results in coagulation testing. Patients having hematocrit values >55% require a special collection tube for coagulation studies. Please contact the laboratory at [phone] for redraw instructions. Alanine aminotransferase [En zymatic activity/volume] in Serum or PlasmaOrdered By: Rivera Lopez on 04-11-2023 ALT [Catalytic activity/Vol] 13 U/L Normal 7-52 [place] Comment on above: Performed By: #### L IPASE, CBC, CMP, HS TROP #### [facility] [address] [place] [address] Albumin [Mass/volume] in Ser um or Plasma by Bromocresol green (BCG) dye binding methoOrdered By: Rivera Lopez on 04-11-2023 Albumin BCG dye [Mass/Vol] 4.5 g/dL 3.5-5.7 [place] Alkaline phosphatase [Enzyma tic activity/volume] in Serum or PlasmaOrdered By: Rivera Lopez on 04-11-2023 ALP [Catalytic activity/Vol] 111 U/L High 34-104 [place] Comment on above: Performed By: #### L IPASE, CBC, CMP, HS TROP #### [facility] [address] [place] [address] Aspartate aminotransferase [ Enzymatic activity/volume] in Serum or PlasmaOrdered By: Rivera Lopez on 04-11-2023 AST [Catalytic activity/Vol] 17 U/L Normal 13-39 [place] Comment on above: Performed By: #### L IPASE, CBC, CMP, HS TROP #### [facility] [address] [place] [address] Automated basophil %Ordered By: Rivera Lopez on 04-11-2023 Basophils/100 WBC (Bld) 0.4 % Normal . [place] Comment on above: Performed By: #### L IPASE, CBC, CMP, HS TROP #### [address] Automated basophil countOrde red By: Rivera Lopez on 04-11-2023 Basophils (Bld) [#/Vol] 0.1 10*3/uL Normal 0.0-0.2 [place] Comment on above: Result Comment: PERF ORMED BY: [place] [address] PATHOLOGIST OIL ANALYST PAULA RODRIGUES M.D. Performed By: #### L IPASE, CBC, CMP, HS TROP #### [address] Automated blood monocyte cou ntOrdered By: Rivera Lopez on 04-11-2023 Monocytes (Bld) [#/Vol] 0.6 10*3/uL Normal 0.0-0.8 [place] Comment on above: Performed By: #### L IPASE, CBC, CMP, HS TROP #### [address] Automated eosinophil %Ordere d By: Rivera Lopez on 04-11-2023 Eosinophils/100 WBC (Bld) 0.0 % Normal . [place] Comment on above: Performed By: #### L IPASE, CBC, CMP, HS TROP #### [address] Automated eosinophil countOr dered By: Rviera Lopez on 04-11-2023 Eosinophils (Bld) [#/Vol] 0.0 10*3/uL Normal 0.0-0.45 [place] Comment on above: Performed By: #### L IPASE, CBC, CMP, HS TROP #### [address] Automated erythrocytes count in urine sediment (number/area)Ordered By: Rivera Lopez on 04-11-2023 RBC Auto (Urine sed) [#/Area] 0-1 [HPF] 0-4 [place] Automated leukocytes count i n urine sediment (number/area)Ordered By: Rivera Lopez on 04-11-2023 WBC Auto (Urine sed) [#/Area] 3-4 [HPF] 0-4 [place] Automated monocyte %Ordered By: Rivera Lopez on 04-11-2023 Monocytes/100 WBC (Bld) 4.3 % Normal . [place] Comment on above: Performed By: #### L IPASE, CBC, CMP, HS TROP #### [facility] [address] [place] [address] Automated neutrophil %Ordere d By: Rivera Lopez on 04-11-2023 Neutrophils/100 WBC (Bld) 87.2 % Normal . [place] Comment on above: Performed By: #### L IPASE, CBC, CMP, HS TROP #### [address] Automated urine color determ inationOrdered By: Rivera Lopez on 04-11-2023 Color (U) Yellow Normal Yellow [place] Comment on above: Order Comment: Name Collection Type:: Clean-Voided Midstream Performed By: #### L IPASE, CBC, CMP, HS TROP #### [address] Basic Metabolic Panelon Creatinine Clr Calc Pharmacy 59.83 Normal [facility] Comment on above: Performed By: #### L IPASE, CBC, CMP, HS TROP #### [address] GFR/1.73 sq M.predicted MDRD (S/P/Bld) [Vol rate/Area] mL/min/{1.73_m2} Normal [facility] Comment on above: Performed By: #### L IPASE, CBC, CMP, HS TROP #### [address] Bilirubin Test strip Ql (U)O rdered By: Rivera Lopez on 04-11-2023 Bilirubin Ql (U) Negative Negative [facility] Bilirubin.direct [Mass/volum e] in Serum or PlasmaOrdered By: Rivera Lopez on 04-11-2023 Bilirubin.direct [Mass/Vol] 0.00 mg/dL 0.03-0.18 [place] Comment on above: If the DBIL is less than 0.1, IBIL is not able to becalculated. Bilirubin.total [Mass/volume ] in Serum or PlasmaOrdered By: Rivera Lopez on 04-11-2023 Bilirubin [Mass/Vol] 0.3 mg/dL Normal 0.3-1.0 [facility] Comment on above: Performed By: #### L IPASE, CBC, CMP, HS TROP #### [facility] [address] CBC AND AUTO DIFFon 04-11-19 24 ABSOLUTE BASOPHIL 0.1 X10E9/L Normal 0.0-0.2 [facility] Comment on above: Performed By: #### C BCA, CMP, 3039-05, #### [facility] ([id number]) [address] [place] [address] 65344 ABSOLUTE NEUTROPHIL 12.5 X10E9/L High 1.5-6.6 [facility] Comment on above: Performed By: #### C BCA, CMP, 3039-05, #### [facility] ([id number]) [address] [place] [address] 63194 Basophils/100 WBC (Bld) 0.4 % Normal [facility] Comment on above: Performed By: #### C BCA, CMP, 3039-05, #### [facility] ([id number]) [address] [place] [address] 19085 Eosinophils (Bld) [#/Vol] 0.1 10*3/uL Normal 0.0-0.4 [facility] Comment on above: Performed By: #### C BCA, CMP, 3039-05, #### [facility] ([id number]) [address] [place] [address] 77128 Eosinophils/100 WBC (Bld) 0.5 % Normal [facility] Comment on above: Performed By: #### C BCA, CMP, 3039-05, #### [facility] ([id number]) [address] [place] [address] 47673 Erythrocyte distribution width (RBC) [Ratio] 13.2 % Normal 11.5-15.0 [facility] Comment on above: Performed By: #### C BONNIE NIEVES, 3039-05, 51403-1 #### [facility] ([id number]) [address] [place] [address] 12073 Hematocrit (Bld) [Volume fraction] 44.6 % Normal 35-47 [facility] Comment on above: Performed By: #### Clara NIEVES [facility], 3039-05, #### [facility] ([id number]) [address] [place] [address] 60775 Hemoglobin (Bld) [Mass/Vol] 15.2 g/dL Normal 11.7-15.5 [facility] Comment on above: Performed By: #### Clara NIEVES CMP, 3039-05, #### [facility] ([id number]) [address] [place] [address] 29898 Lymphocytes (Bld) [#/Vol] 1.3 10*3/uL Normal 1.0-3.5 [facility] Comment on above: Performed By: #### Clara NIEVES [facility], 3039-05, #### [facility] ([id number]) [address] [place] [address] 59468 Lymphocytes/100 WBC (Bld) 8.7 % Normal [facility] Comment on above: Performed By: #### Clara NIEVES CMP, 3039-05, #### [facility] ([id number]) [address] [place] [address] 68746 MCH (RBC) [Entitic mass] 32.8 pg Normal 27-34 [facility] Comment on above: Performed By: #### Clara NIEVES CMP, 3039-05, #### [facility] ([id number]) [address] [place] [address] 71295 MCHC (RBC) [Mass/Vol] 34.1 g/dL Normal 32-36 [facility] Comment on above: Performed By: #### Clara NIEVES CMP, 3039-05, #### [facility] ([id number]) [address] [place] [address] 93161 MCV (RBC) [Entitic vol] 96 fL Normal 80-100 [facility] Comment on above: Performed By: #### Clara NIEVES CMP, 3039-05, #### [facility] ([id number]) [address] [place] [address] 45829 Monocytes (Bld) [#/Vol] 0.7 10*3/uL Normal 0-0.9 [facility] Comment on above: Performed By: #### Clara NIEVES CMP, 3039-05, #### [facility] ([id number]) [address] [place] [address] 73881 Monocytes/100 WBC (Bld) 4.5 % Normal [facility] Comment on above: Performed By: #### Clara NIEVES, CMP, 3039-05, #### [facility] ([id number]) [address] [place] [address] 67944 Neutrophils/100 WBC (Bld) 85.9 % Normal [facility] Comment on above: Performed By: #### Clara NIEVES CMP, 3039-05, #### [facility] ([id number]) [address] [place] [address] 00444 Platelet mean volume (Bld) [Entitic vol] 7.5 fL Normal 7-12 [facility] Comment on above: Performed By: #### Clara NIEVES, CMP, 3039-05, #### [facility] ([id number]) [address] [place] [address] 43326 Platelets (Bld) [#/Vol] 307 10*3/uL Normal 150-450 [facility] Comment on above: Performed By: #### C BCA, CMP, 3, 12993-8 #### [facility] ([id number]) [address] [place] [address] 24122 RBC COUNT 4.64 X10E12/L Normal 3.80-5.20 [facility] Comment on above: Performed By: #### C BCA, CMP, 3039-05, #### [facility] ([id number]) [address] [place] [address] 80469 WBC (Bld) [#/Vol] 14.5 10*3/uL High 4.0-11.0 [facility] Comment on above: Performed By: #### C BCA, CMP, 3039-05, #### [facility] ([id number]) [address] [place] [address] 35447 COMPREHENSIVE METABOLIC PANE Nimesh 04-11-2023 Albumin [Mass/Vol] 4.7 g/dL Normal 3.2-5.3 [facility] Comment on above: Performed By: #### C BCA, CMP, 3039-05, #### [facility] ([id number]) [address] [place] [address] 32565 ALP [Catalytic activity/Vol] 131 U/L High 39-130 [facility] Comment on above: Performed By: #### C BCA, CMP, 3039-05, 47967-3 #### [facility] ([id number]) [address] [place] [address] 27652 ALT [Catalytic activity/Vol] 18 U/L Normal 0-31 [facility] Comment on above: Performed By: #### C BCA, CMP, 3, #### [facility] ([id number]) [address] [place] [address] 68271 Anion gap [Moles/Vol] 9 mmol/L Normal 5-15 [facility] Comment on above: Performed By: #### C EZEQUIEL, CMP, 3039-05, #### [facility] ([id number]) [address] [place] [address] 36362 AST [Catalytic activity/Vol] 23 U/L Normal 0-41 [facility] Comment on above: Performed By: #### C BCA, CMP, 3039-05, #### [facility] ([id number]) [address] [place] [address] 98936 Bilirubin [Mass/Vol] 0.5 mg/dL Normal 0.3-1.2 [facility] Comment on above: Performed By: #### C EZEQUIEL, CMP, 3039-05, #### [facility] ([id number]) [address] [place] [address] 67971 Calcium [Mass/Vol] 11.4 mg/dL High 8.5-10.5 [facility] Comment on above: Performed By: #### C EZEQUIEL, CMP, 3039-05, #### [facility] ([id number]) [address] [place] [address] 10112 Chloride [Moles/Vol] 99 mmol/L Normal 98-109 [facility] Comment on above: Performed By: #### C BCA, CMP, 3039-05, 73772-3 #### [facility] ([id number]) [address] [place] [address] 38505 CO2 [Moles/Vol] 28 mmol/L Normal 22-32 [facility] Comment on above: Performed By: #### C BCA, CMP, 3039-05, #### [facility] ([id number]) [address] [place] [address] 49843 Creatinine [Mass/Vol] 0.95 mg/dL Normal 0.40-1.00 [facility] Comment on above: Result Comment: METH OD TRACEABLE TO IDMS STANDARD Performed By: #### C BONNIE NIEVES, 3039-05, 45800-6 #### [facility] ([id number]) [address] [place] [address] 79522 GFR/1.73 sq M.predicted among non-blacks MDRD (S/P/Bld) [Vol rate/Area] 72 mL/min/{1.73_m2} Normal >59 [facility] Comment on above: Result Comment: Reported eGFR is based on the CKD-EPI 2020 equation that does not use a race coefficient. Performed By: #### C BONNIE NIEVES, 3039-05, #### [facility] ([id number]) [address] [place] [address] 47933 Glucose [Mass/Vol] 126 mg/dL High 65-99 [facility] Comment on above: Performed By: #### C BONNIE NIEVES, 3039-05, #### [facility] ([id number]) [address] [place] [address] 18020 Potassium [Moles/Vol] 3.2 mmol/L Low 3.5-5.0 [facility] Comment on above: Performed By: #### C BONNIE NIEVES, 3039-05, #### [facility] ([id number]) [address] [place] [address] 26438 Protein [Mass/Vol] 7.5 g/dL Normal 6.0-8.0 [facility] Comment on above: Performed By: #### C BONNIE NIEVES, 3039-05, #### [facility] ([id number]) [address] [place] [address] 97982 Sodium [Moles/Vol] 136 mmol/L Normal 134-146 [facility] Comment on above: Performed By: #### C BONNIE NIEVES, 0-3, 49787-5 #### [facility] ([id number]) [address] [place] [address] Urea nitrogen [Mass/Vol] 6 mg/dL Normal 5-23 [facility] Comment on above: Performed By: #### C BCA, CMP, 3040-3, 27928-0 #### [facility] ([id number]) [address] [place] [address] CT ABDOMEN AND PELVIS W CONT on [...] MD on 04/11/2023 6:05 PM Normal [facility] Calcium [Mass/volume] in Ser um or PlasmaOrdered By: Rivera Lopez on 04-11-2023 Calcium [Mass/Vol] 10.3 mg/dL Normal 8.6-10.3 [facility] Comment on above: Performed By: #### L IPASE, CBC, CMP, HS TROP #### [address] Carbon dioxide, total [Moles /volume] in Serum or PlasmaOrdered By: Rivera Lopez on 04-11-2023 CO2 [Moles/Vol] 26.9 mmol/L Normal 21.0-31.0 [facility] Comment on above: Performed By: #### L IPASE, CBC, CMP, HS TROP #### [address] Chloride [Moles/volume] in S erika or PlasmaOrdered By: Rivera Lopez on 04-11-2023 Chloride [Moles/Vol] 103 mmol/L Normal 98-107 [facility] Comment on above: Performed By: #### L IPASE, CBC, CMP, HS TROP #### [address] Complete Blood Count Auto Di ffon 04-11-2023 Mean Corpuscular HGB Conc 33.2 g/dL Normal 32.0-35.0 [facility] Comment on above: Performed By: #### L IPASE, CBC, CMP, HS TROP #### [place] [address] [place] Monocytes/100 WBC (Bld) 17.01 % Normal 0.00-20.00 [facility] Comment on above: Performed By: #### L IPASE, CBC, CMP, HS TROP #### [place] [address] [place] NRBC% 0.0 /100{WBC} Normal 0-0.5 [facility] Comment on above: Performed By: #### L IPASE, CBC, CMP, HS TROP #### [place] [address] [place] Creatinine [Mass/volume] in Serum or PlasmaOrdered By: Rivera Lopez on 04-11-2023 Creatinine [Mass/Vol] 0.86 mg/dL Normal 0.60-1.20 [facility] Comment on above: Performed By: #### L IPASE, CBC, CMP, HS TROP #### [address] Dipstick and Microscopicon 0 04-11-2023 Appearance (U) Turbid Critically abnormal Clear [facility] Comment on above: Order Comment: Name Collection Type:: Clean-Voided Midstream Performed By: #### L IPASE, CBC, CMP, HS TROP #### [address] Bacteria,Urine None Seen Normal None Seen [facility] Comment on above: Order Comment: Name Collection Type:: Clean-Voided Midstream Performed By: #### L IPASE, CBC, CMP, HS TROP #### [address] Bilirubin,Urine Negative Normal Negative [facility] Comment on above: Order Comment: Name Collection Type:: Clean-Voided Midstream Performed By: #### L IPASE, CBC, CMP, HS TROP #### [address] Glucose Ql (U) Normal Normal Normal [facility] Comment on above: Order Comment: Name Collection Type:: Clean-Voided Midstream Performed By: #### L IPASE, CBC, CMP, HS TROP #### [address] Hyaline Casts,Urine None Seen Normal 0-8 [facility] Comment on above: Order Comment: Name Collection Type:: Clean-Voided Midstream Result Comment: PERF ORMED BY: [place] [address] PATHOLOGIST OIL ANALYST PAULA RODRIGUES M.D. Performed By: #### L IPASE, CBC, CMP, HS TROP #### [address] Ketones Ql (U) Negative Normal Negative [facility] Comment on above: Order Comment: Name Collection Type:: Clean-Voided Midstream Performed By: #### L IPASE, CBC, CMP, HS TROP #### [address] Leukocyte esterase Test strip Ql (U) Negative Normal Negative [facility] Comment on above: Order Comment: Name Collection Type:: Clean-Voided Midstream Performed By: #### L IPASE, CBC, CMP, HS TROP #### [facility] [address] [place] [address] [place] Nitrite,Urine Negative Normal Negative [facility] Comment on above: Order Comment: Name Collection Type:: Clean-Voided Midstream Performed By: #### L IPASE, CBC, CMP, HS TROP #### [address] Occult Blood,Urine Negative Normal Negative [facility] Comment on above: Order Comment: Name Collection Type:: Clean-Voided Midstream Result Comment: PERF ORMED BY: [place] [address] PATHOLOGIST OIL ANALYST PAULA RODRIGUES M.D. Performed By: #### L IPASE, CBC, CMP, HS TROP #### [address] Protein,Urine Negative Normal Negative [facility] Comment on above: Order Comment: Name Collection Type:: Clean-Voided Midstream Performed By: #### L IPASE, CBC, CMP, HS TROP #### [place] [address] [place] RBC LM.HPF (Urine sed) [#/Area] 0 /[HPF] Normal 0-4 [facility] Comment on above: Order Comment: Name Collection Type:: Clean-Voided Midstream Performed By: #### L IPASE, CBC, CMP, HS TROP #### [place] [address] [place] Specificy [place],Urine > 1.050 High 1.001-1.03 0 [facility] Comment on above: Order Comment: Name Collection Type:: Clean-Voided Midstream Performed By: #### L IPASE, CBC, CMP, HS TROP #### [place] [address] [place] Squamous Epithelial Cell,Urine 0-1 Normal 0-2 [facility] Comment on above: Order Comment: Name Collection Type:: Clean-Voided Midstream Performed By: #### L IPASE, CBC, CMP, HS TROP #### [address] Urobilinogen,Urine Normal Normal Normal [facility] Comment on above: Order Comment: Name Collection Type:: Clean-Voided Midstream Performed By: #### L IPASE, CBC, CMP, HS TROP #### [address] WBC,Urine 3-4 Normal 0-4 [facility] Comment on above: Order Comment: Name Collection Type:: Clean-Voided Midstream Performed By: #### L IPASE, CBC, CMP, HS TROP #### [address] ECG 12 lead ECGon 04-11-2023 ECG 12 lead ECG [facility] [place] [address] [place] [address] Electrocardiograph Report Signed Patient: Chioma Arciniega MR#: [id number] : 1970 Acct:[id number] Age/Sex: 52 / F ADM Date: 04/11/23 Loc: ER Room: Type: [facility] ER Attending Dr: Ordering Provider: Rivera [...] was found Confirmed by Rivera Lopez DO ([id number]) on 04/12/2023 12:05:50 AM Referred By: Electronically Signed By:Rivera Lopez DO Transcribed By: MUS Signed By Rivera Lopez DO 4 0005 Normal [facility] Erythrocyte distribution wid th [Ratio] by Automated countOrdered By: Rivera Lopez on 04-11-2023 Erythrocyte distribution width (RBC) [Ratio] 13.6 % Normal 11.9-15.3 [place] Comment on above: Performed By: #### L IPASE, CBC, CMP, HS TROP #### [facility] [address] [place] [address] [place] Erythrocytes [#/volume] in B lood by Automated countOrdered By: Rivera Lopez on 04-11-2023 RBC (Bld) [#/Vol] 4.27 10*6/uL Normal 3.60-5.00 [facility] Comment on above: Performed By: #### L IPASE, CBC, CMP, HS TROP #### [facility] [address] [place] [address] [place] Glucose [Mass/volume] in Ser um or PlasmaOrdered By: Rivera Lopez on 04-11-2023 Glucose [Mass/Vol] 121 mg/dL High 70-100 [facility] Comment on above: ADA recommended refe rence rangeRandom Glucose Reference Range is dependent on time and content of last meal. Glucose of more than 200 mg/dL in a nonstressed, ambulatory subject supports the diagnosis of Diabetes Mellitus. Result Comment: [place] om Glucose Reference Range is dependent on time and content of last meal. Glucose of more than 200 mg/dL in a nonstressed, ambulatory subject supports the diagnosis of Diabetes Mellitus. ADA recommended reference range Performed By: #### L IPASE, CBC, CMP, HS TROP #### [facility] [address] [place] [id number] [place] Hematocrit [Volume Fraction] of Blood by Automated countOrdered By: Rivera Lopez on 04-11-2023 Hematocrit (Bld) [Volume fraction] 41.3 % Normal 34.0-46.4 [place] Comment on above: Performed By: #### L IPASE, CBC, CMP, HS TROP #### [facility] [address] [place] [id number] [place] Hemoglobin [Mass/volume] in BloodOrdered By: Rivera Lopez on 04-11-2023 Hemoglobin (Bld) [Mass/Vol] 13.7 g/dL Normal 11.8-15.4 [place] Comment on above: Performed By: #### L IPASE, CBC, CMP, HS TROP #### [facility] [address] Hepatic Panelon 04-11-2023 Albumin [Mass/Vol] 4.5 g/dL Normal 3.5-5.7 [facility] Comment on above: Performed By: #### L IPASE, CBC, CMP, HS TROP #### [address] Bilirubin,Indirect 0.3 mg/dL Normal [facility] Comment on above: Performed By: #### L IPASE, CBC, CMP, HS TROP #### [address] Bilirubin.indirect [Mass/Vol] 0.00 mg/dL Low 0.03-0.18 [facility] Comment on above: Result Comment: If t he DBIL is less than 0.1, IBIL is not able to be calculated. Performed By: #### L IPASE, CBC, CMP, HS TROP #### [address] INR in Platelet poor plasma by Coagulation assayOrdered By: Rivera Lopez on 04-11-2023 INR Coag (PPP) [Relative time] 1.0 {INR} Normal [place] Comment on above: INR Therapeutic Rang e [...] L IPASE, CBC, CMP, HS TROP #### [facility] [address] [place] [address] [place] Ketones Auto test strip (U) [Mass/Vol]Ordered By: Rivera Lopez on 04-11-2023 Ketones (U) [Mass/Vol] Negative Negative [facility] LIPASEon 04-11-2023 Lipase [Catalytic activity/Vol] 49 U/L High 17-40 [facility] Comment on above: Performed By: #### C BCA, CMP, 3040-3, 83291-9 #### [facility] ([id number]) [address] [place] [address], [place] [address] Laboratory - UrinalysisOrder ed By: Rivera Lopez on 04-11-2023 Hyaline casts LM Ql (Urine sed) None seen [LPF] 0-8 [place] Leukocytes [#/volume] correc aurelia for nucleated erythrocytes in Blood by Automated counOrdered By: Rivera Lopez on 04-11-2023 WBC corrected for nucl RBC Auto (Bld) [#/Vol] 13.9 10*3/uL 3.8-11.6 [place] Leukocytes [#/volume] in Blo od by Automated countOrdered By: Rivera Lopez on 04-11-2023 WBC (Bld) [#/Vol] 13.9 10*3/uL High 3.8-11.6 [facility] Comment on above: Performed By: #### L IPASE, CBC, CMP, HS TROP #### [facility] [address] [place] [address] [place] Lipase [Enzymatic activity/v olume] in Serum or PlasmaOrdered By: Rivera Lopez on 04-11-2023 Lipase [Catalytic activity/Vol] 26.0 U/L Normal 11.0-82.0 [place] Comment on above: Result Comment: PERF ORMED BY: [place] [address] PATHOLOGIST OIL ANALYST PAULA RODRIGUES M.D. Performed By: #### L IPASE, CBC, CMP, HS TROP #### [facility] [address] [place] [id number] [place] Lymphocytes [#/volume] in Bl ood by Automated countOrdered By: Rivera Lopez on 04-11-2023 Lymphocytes (Bld) [#/Vol] 1.1 10*3/uL Normal 1.00-4.8 [place] Comment on above: Performed By: #### L IPASE, CBC, CMP, HS TROP #### [facility] [address] [place] [address] [place] Lymphocytes/100 leukocytes i n Blood by Automated countOrdered By: Rivera Lopez on 04-11-2023 Lymphocytes/100 WBC (Bld) 8.1 % Normal . [place] Comment on above: Performed By: #### L IPASE, CBC, CMP, HS TROP #### [address] MAGNESIUMon 04-11-2023 Magnesium [Mass/Vol] 2.0 mg/dL Normal 1.8-2.6 [facility] Comment on above: Performed By: #### C BCA, CMP, 3040-3, 89224-7, 38994-4, 45841- 9 #### [facility] ([id number]) [address] [place] [address], [place] [address] MCH [Entitic mass] by Automa aurelia countOrdered By: Rivera Lopez on 04-11-2023 MCH (RBC) [Entitic mass] 32.2 pg Normal 24.7-34.3 [place] Comment on above: Performed By: #### L IPASE, CBC, CMP, HS TROP #### [facility] [address] [place], [place] [address] [facility] MCHC Auto (RBC) [Mass/Vol]Or dered By: Rivera Lopez on 04-11-2023 MCHC (RBC) [Mass/Vol] 33.2 g/dL 32.0-35.0 [facility] MCV [Entitic volume] by Auto mated countOrdered By: Rivera Lopez on 04-11-2023 MCV (RBC) [Entitic vol] 96.8 fL Normal 80-100 [place] Comment on above: Performed By: #### L IPASE, CBC, CMP, HS TROP #### [facility] [address] [place] [address] [place] Monocyte distribution width [Entitic volume] in Blood by AutomatedOrdered By: Rivera Lopez on 04-11-2023 Monocyte distribution width Auto (Bld) [Entitic vol] 17.01 % 0.00-20.00 [place] Neutrophils [#/volume] in Bl ood by Automated countOrdered By: Rivera Lopez on 04-11-2023 Neutrophils (Bld) [#/Vol] 12.1 10*3/uL High 1.8-7.7 [place] Comment on above: Performed By: #### L IPASE, CBC, CMP, HS TROP #### [facility] [address] [place] [id number] [facility] Nitrite Test strip Ql (U)Ord ered By: Rivera Lopez on 04-11-2023 Nitrite Ql (U) Negative Negative [place] No Panel InformationOrdered By: Rivera Lopez on 04-11-2023 Estimated GFR (CKD-EPI) > 60.0 mL/Min [facility] Creatinine Clearance (Chem 59.83 [place] Nucleated erythrocytes [Pres ence] in Blood by Automated countOrdered By: Rivera Lopez on 04-11-2023 Nucleated RBC Auto Ql (Bld) 0.0 /100{WBC} 0-0.5 [place] Partial Thromboplastin Timeo n 04-11-2023 aPTT Coag (Bld) [Time] 23.3 s Low 25.1-36.5 [facility] Comment on above: Result Comment: A he matocrit value greater than 55% may lead to inaccurate results in coagulation testing. Patients having hematocrit values >55% require a special collection tube for coagulation studies. Please contact the laboratory at [phone] for redraw instructions. PERFORMED BY: [address] [place] [address] PATHOLOGIST OIL ANALYST PAULA RODRIGUES M.D. Performed By: #### L IPASE, CBC, CMP, HS TROP #### [facility] [address] [place] [address] Platelet mean volume [Entiti c volume] in Blood by Automated countOrdered By: Rivera Lopez on 04-11-2023 Platelet mean volume (Bld) [Entitic vol] 7.7 fL Normal 6.3-10.7 [place] Comment on above: Performed By: #### L IPASE, CBC, CMP, HS TROP #### [facility] [address] [place] [address] Platelets [#/volume] in Bloo d by Automated countOrdered By: Rivera Lopez on 04-11-2023 Platelets (Bld) [#/Vol] 262 10*3/uL Normal 150-450 [place] Comment on above: Performed By: #### L IPASE, CBC, CMP, HS TROP #### [address] Potassium [Moles/volume] in Serum or PlasmaOrdered By: Rivera Lopez on 04-11-2023 Potassium [Moles/Vol] 4.0 mmol/L Normal 3.5-5.1 [facility] Comment on above: Performed By: #### L IPASE, CBC, CMP, HS TROP #### [address] Protein Auto test strip (U) [Mass/Vol]Ordered By: Rivera Lopez on 04-11-2023 Protein (U) [Mass/Vol] Negative Negative [facility] Protein [Mass/volume] in Ser um or PlasmaOrdered By: Rivera Lopez on 04-11-2023 Protein [Mass/Vol] 6.9 g/dL Normal 6.4-8.9 [facility] Comment on above: Performed By: #### L IPASE, CBC, CMP, HS TROP #### [address] Prothrombin time (PT)Ordered By: Rivera Lopez on 04-11-2023 PT Coag (PPP) [Time] 11.2 s Normal 9.0-12.9 [facility] Comment on above: A hematocrit value g reater than 55% may lead to inaccurate results in coagulation testing. Patients having hematocrit values >55% require a special collection tube for coagulation studies. Please contact the laboratory at [phone] for redraw instructions. Result Comment: A he matocrit value greater than 55% may lead to inaccurate results in coagulation testing. Patients having hematocrit values >55% require a special collection tube for coagulation studies. Please contact the laboratory at [phone] for redraw instructions. Performed By: #### L IPASE, CBC, CMP, HS TROP #### [address] Serum globulin measurement b y calculation (mass/volume)Ordered By: Rivera Lopez on 04-11-2023 Globulin (S) [Mass/Vol] 2.4 g/dL [facility] Comment on above: Performed By: #### L IPASE, CBC, CMP, HS TROP #### [facility] [address] [place] [address] Serum or plasma albumin/glob ulin mass ratioOrdered By: Rivera Lopez on 04-11-2023 Albumin/Globulin [Mass ratio] 1.9 {ratio} [facility] Comment on above: Performed By: #### L IPASE, CBC, CMP, HS TROP #### [address] Serum or plasma anion gap de terminationOrdered By: Rivera Lopez on 04-11-2023 Anion gap [Moles/Vol] 14.1 mmol/L Normal 6.0-15.0 [facility] Comment on above: Performed By: #### L IPASE, CBC, CMP, HS TROP #### [address] Serum or plasma non-glucuron idated bilirubin measurement (mass/volume)Ordered By: Rivera Lopez on 04-11-2023 Bilirubin.indirect [Mass/Vol] 0.3 mg/dL [place] Sodium [Moles/volume] in Ser um or PlasmaOrdered By: Rivera Lopez on 04-11-2023 Sodium [Moles/Vol] 140 mmol/L Normal 136-145 [facility] Comment on above: Performed By: #### L IPASE, CBC, CMP, HS TROP #### [facility] [address] Specific gravity Auto test s trip (U) [Rel density]Ordered By: Rivera Lopez on 04-11-2023 Specific gravity (U) [Rel density] > 1.050 1.001-1.03 0 [place] Squamous epithelial cells de tection in urine sediment by light microscopyOrdered By: Rivera Lopez on 04-11-2023 Epithelial cells.squamous LM Ql (Urine sed) 0-1 [HPF] 0-2 [place] URN MACROSCOPIC NURon 2023 BILIRUBIN JERE Negative Normal NEG [facility] Comment on above: Performed By: #### C BCA, CMP, 3040-3, 53418-7, 28626-0, 98625- 9 #### [facility] ([id number]) [address] [place] [address]20 BLOOD/HGB JERE Negative Normal NEG [facility] Comment on above: Performed By: #### C BCA, CMP, 3040-3, 13295-8, 24507-9, 79382- 9 #### [facility] ([id number]) [address] [place] [address] 46860 GLUCOSE JERE Negative Normal NEG [facility] Comment on above: Performed By: #### C BCA, CMP, 3040-3, 26478-4, 96496-5, 48543- 9 #### [facility] ([id number]) [address] [place] [address] 67976 KETONES JERE Negative Normal NEG [facility] Comment on above: Performed By: #### C BCA, CMP, 3040-3, 14854-9, 87197-6, 07363- 9 #### [facility] ([id number]) [address] [place] [address] 95960 LEUKOCYTE ESTERASE JERE Negative Normal NEG [facility] Comment on above: Performed By: #### C BCA, CMP, 3040-3, 53902-4, 32806-7, 33965- 9 #### [facility] ([id number]) [address] [place] [address] 27679 NITRITE JERE Negative Normal NEG [facility] Comment on above: Performed By: #### C BCA, CMP, 3040-3, 40790-7, 19913-7, 67625- 9 #### [facility] ([id number]) [address] [place] [address] 98683 PH JERE >=9.0 Normal 5.0-8.5 [facility] Comment on above: Performed By: #### C BCA, CMP, 3040-3, 24071-9, 96822-7, 80591- 9 #### [facility] ([id number]) [address] [place] [address] 80536 PROTEIN JERE Negative Normal NEG [facility] Comment on above: Performed By: #### C BCA, CMP, 3040-3, 01698-6, 21856-5, 42191- 9 #### [facility] ([id number]) [address] [place] [address] 29094 SPECIFIC GRAVITY JERE 1.015 Normal 1.003-[address] [place] [address] Comment on above: Performed By: #### C BCA, CMP, 3040-3, 64903-7, 73054-0, 51997- 9 #### [facility] ([id number]) [address] [place] [address] 96578 UROBILINOGEN JERE 0.2 eu/dL Normal <1.1 [facility] Comment on above: Performed By: #### C BCA, CMP, 3040-3, 09740-8, 21863-1, 09707- 9 #### [facility] ([id number]) [address] [place] [address] 43456 Urea nitrogen [Mass/volume] in Serum or PlasmaOrdered By: Rivera Lopez on 04-11-2023 Urea nitrogen [Mass/Vol] 5 mg/dL Low 09-30 [place] Comment on above: Performed By: #### L IPASE, CBC, CMP, HS TROP #### [facility] [address] Urine bacteria detection by automated methodOrdered By: Rivera Lopez on 04-11-2023 Bacteria Auto Ql (U) None seen None Seen [facility] Urine clarity by refractomet ry automatedOrdered By: Rivera Lopez on 04-11-2023 Clarity Refractometry automated (U) Turbid Clear [place] Urine glucose measurement by automated test strip (mass/volume)Ordered By: Rivera Lopez on 04-11-2023 Glucose Auto test strip (U) [Mass/Vol] Normal mg/dL Normal [place] Urine hemoglobin detection b y automated test stripOrdered By: Rivera Lopez on 04-11-2023 Hemoglobin Auto test strip Ql (U) Negative Negative [place] Urine leukocyte esterase det ection by automated test stripOrdered By: Rivera Lopez on 04-11-2023 Leukocyte esterase Auto test strip Ql (U) Negative Negative [place] Urine pH measurement by auto mated test stripOrdered By: Rivera Lopez on 04-11-2023 pH (U) 8.0 [pH] Normal 5.0-9.0 [place] Comment on above: Order Comment: Name Collection Type:: Clean-Voided Midstream Performed By: #### L IPASE, CBC, CMP, HS TROP #### [facility] [address] [place] [address] [place] Urobilinogen Auto test strip (U) [Mass/Vol]Ordered By: Rivera Lopez on 04-11-2023 Urobilinogen (U) [Mass/Vol] Normal mg/dL Normal [place] Alanine aminotransferase [En zymatic activity/volume] in Serum or PlasmaOrdered By: Nicole Posadas on 04-02-2023 ALT [Catalytic activity/Vol] 11 U/L Normal [place] Comment on above: Performed By: #### L IPASE, CBC, CMP, HS TROP #### [facility] [address] [place] [address] Albumin [Mass/volume] in Ser um or Plasma by Bromocresol green (BCG) dye binding methoOrdered By: Nicole Posadas on 04-02-2023 Albumin BCG dye [Mass/Vol] 4.2 g/dL 3.5-5.7 [place] Alkaline phosphatase [Enzyma tic activity/volume] in Serum or PlasmaOrdered By: Nicole Posadas on 04-02-2023 ALP [Catalytic activity/Vol] 101 U/L Normal 34-104 [place] Comment on above: Performed By: #### L IPASE, CBC, CMP, HS TROP #### [address] Aspartate aminotransferase [ Enzymatic activity/volume] in Serum or PlasmaOrdered By: Nicole Posadas on 04-02-2023 AST [Catalytic activity/Vol] 21 U/L Normal 13-39 [place] Comment on above: Performed By: #### L IPASE, CBC, CMP, HS TROP #### [address] Automated basophil %Ordered By: Nicole Posadas on 04-02-2023 Basophils/100 WBC (Bld) 0.2 % Normal . [place] Comment on above: Performed By: #### L IPASE, CBC, CMP, HS TROP #### [address] Automated basophil countOrde red By: Nicole Posadas on 04-02-2023 Basophils (Bld) [#/Vol] 0.0 10*3/uL Normal 0.0-0.2 [place] Comment on above: Result Comment: PERF ORMED BY: [place] [address] PATHOLOGIST OIL ANALYST PAULA RODRIGUES M.D. Performed By: #### L IPASE, CBC, CMP, HS TROP #### [address] Automated blood monocyte cou ntOrdered By: Nicole Posadas on 04-02-2023 Monocytes (Bld) [#/Vol] 0.6 10*3/uL Normal 0.0-0.8 [place] Comment on above: Performed By: #### L IPASE, CBC, CMP, HS TROP #### [facility] [address] [place] [address] Automated eosinophil %Ordere d By: Nicole Jjanand on 04-02-2023 Eosinophils/100 WBC (Bld) 1.7 % Normal . [place] Comment on above: Performed By: #### L IPASE, CBC, CMP, HS TROP #### [address] Automated eosinophil countOr dered By: Nicole Jjanand on 04-02-2023 Eosinophils (Bld) [#/Vol] 0.1 10*3/uL Normal 0.0-0.45 [place] Comment on above: Performed By: #### L IPASE, CBC, CMP, HS TROP #### [address] Automated monocyte %Ordered By: Nicole Jjanand on 04-02-2023 Monocytes/100 WBC (Bld) 9.8 % Normal . [place] Comment on above: Performed By: #### L IPASE, CBC, CMP, HS TROP #### [address] Automated neutrophil %Ordere d By: Nicole Jjanand on 04-02-2023 Neutrophils/100 WBC (Bld) 59.1 % Normal . [place] Comment on above: Performed By: #### L IPASE, CBC, CMP, HS TROP #### [address] Automated urine color determ inationOrdered By: Nicolecarito Posadas on 04-02-2023 Color (U) Yellow Normal Yellow [place] Comment on above: Order Comment: Name Collection Type:: Clean-Voided Midstream Performed By: #### U A #### [address] [place] [address] [facility] Bilirubin Test strip Ql (U)O rdered By: Nicole Posadas on 04-02-2023 Bilirubin Ql (U) Negative Negative [facility] Bilirubin.total [Mass/volume ] in Serum or PlasmaOrdered By: Nicole Posadas on 04-02-2023 Bilirubin [Mass/Vol] 0.3 mg/dL Normal 0.3-1.0 [facility] Comment on above: Performed By: #### L IPASE, CBC, CMP, HS TROP #### [facility] [address] [place], [place] [id number] [facility] CT abdomen pelvis w conon CT abdomen pelvis w con [facility] [place] [address] [place] [address] CT Scan Report Signed Patient: Chioma Arciniega MR#: [id number] : 1970 Acct:[id number] Age/Sex: 52 / F ADM Date: 04/02/23 Loc: ER Room: Type: [facility] ER Attending Dr: Copies to: Nicole [...] gland. Impression dictated by: Eyal Paredes Jr., D.OGopal04/02/2023 6:15 PM Dictation Location: [place] [address] Transcribed By: [facility] 04/02/231814 Dictated By: Eyal Paredes Jr, DO 04/02/231808 Signed By: 04/02/231814 Normal [facility] Calcium [Mass/volume] in Ser um or PlasmaOrdered By: Nicole Posadas on 04-02-2023 Calcium [Mass/Vol] 9.7 mg/dL Normal 8.6-10.3 [facility] Comment on above: Performed By: #### L IPASE, CBC, CMP, HS TROP #### [facility] [address] Carbon dioxide, total [Moles /volume] in Serum or PlasmaOrdered By: Nicole Posadas on 04-02-2023 CO2 [Moles/Vol] 26.3 mmol/L Normal 21.0-31.0 [facility] Comment on above: Performed By: #### L IPASE, CBC, CMP, HS TROP #### [facility] [address] [place] [address] [place] Chloride [Moles/volume] in S erika or PlasmaOrdered By: Nicole Posadas on 04-02-2023 Chloride [Moles/Vol] 106 mmol/L Normal 98-107 [facility] Comment on above: Performed By: #### L IPASE, CBC, CMP, HS TROP #### [facility] [address] [place] [id number] [place] Complete Blood Count Auto Di ffon 04-02-2023 Mean Corpuscular HGB Conc 34.0 g/dL Normal 32.0-35.0 [facility] Comment on above: Performed By: #### L IPASE, CBC, CMP, HS TROP #### [address] Monocytes/100 WBC (Bld) 17.36 % Normal 0.00-20.00 [facility] Comment on above: Performed By: #### L IPASE, CBC, CMP, HS TROP #### [address] NRBC% 0.1 /100{WBC} Normal 0-0.5 [facility] Comment on above: Performed By: #### L IPASE, CBC, CMP, HS TROP #### [address] Comprehensive Metabolic Pane nimesh 04-02-2023 Albumin [Mass/Vol] 4.2 g/dL Normal 3.5-5.7 [facility] Comment on above: Performed By: #### L IPASE, CBC, CMP, HS TROP #### [address] Anion gap [Moles/Vol] Not performed Normal 6.0-15.0 [facility] Comment on above: Performed By: #### L IPASE, CBC, CMP, HS TROP #### [address] Creatinine Clr Calc Pharmacy 62.75 Normal [facility] Comment on above: Performed By: #### L IPASE, CBC, CMP, HS TROP #### [place] [address] [place] GFR/1.73 sq M.predicted MDRD (S/P/Bld) [Vol rate/Area] mL/min/{1.73_m2} Normal [facility] Comment on above: Performed By: #### L IPASE, CBC, CMP, HS TROP #### [address] Potassium Normal 3.5-5.1 [facility] Comment on above: Result Comment: Spec imen hemolyzed, redraw requested Performed By: #### L IPASE, CBC, CMP, HS TROP #### [place] [id number] [facility] Creatinine [Mass/volume] in Serum or PlasmaOrdered By: Nicole Posadas on 04-02-2023 Creatinine [Mass/Vol] 0.82 mg/dL Normal 0.60-1.20 [facility] Comment on above: Performed By: #### L IPASE, CBC, CMP, HS TROP #### [place] [id number] [facility] D-Dimer High Sensitivityon 0 04-02-2023 D-Dimer High Sensitivity < 200 Normal 0-243 [facility] Comment on above: Result Comment: [...] coagulation studies. Please contact the laboratory at [phone] for redraw instructions. PERFORMED BY: [place] [address] PATHOLOGIST OIL ANALYST PAULA RODRIGUES M.D. Performed By: #### L IPASE, CBC, CMP, HS TROP #### [address] [address] [facility] ECG 12 lead ECGon 04-02-2023 ECG 12 lead ECG [facility] [place] [address] [place], [place] [id number] Electrocardiograph Report Signed Patient: Chioma Arciniega MR#: [id number] : 1970 Acct:[id number] Age/Sex: 52 / F ADM Date: 04/02/23 Loc: ER Room: Type: [facility] ER Attending Dr: Ordering Provider: Nicole [...] Xiang Kellogg MD 04/02/23 1527 Normal [facility] Erythrocyte distribution wid th [Ratio] by Automated countOrdered By: Nicole Posadas on 04-02-2023 Erythrocyte distribution width (RBC) [Ratio] 13.3 % Normal 11.9-15.3 [place] Comment on above: Performed By: #### L IPASE, CBC, CMP, HS TROP #### [facility] [address] Erythrocytes [#/volume] in B lood by Automated countOrdered By: Nicole Posadas on 04-02-2023 RBC (Bld) [#/Vol] 4.29 10*6/uL Normal 3.60-5.00 [facility] Comment on above: Performed By: #### L IPASE, CBC, CMP, HS TROP #### [facility] [address] Fibrin D-dimer [Presence] in Platelet poor plasma by Latex agglutinationOrdered By: Nicole Posadas on 04-02-2023 Fibrin D-dimer LA Ql (PPP) < 200 ng/mL 0-243 [place] Comment on above: The reference range for [...] coagulation studies. Please contact the laboratory at [phone] for redraw instructions. Glucose [Mass/volume] in Ser um or PlasmaOrdered By: Nicole Posadas on 04-02-2023 Glucose [Mass/Vol] 90 mg/dL Normal 70-100 [facility] Comment on above: ADA recommended refe rence rangeRandom Glucose Reference Range is dependent on time and content of last meal. Glucose of more than 200 mg/dL in a nonstressed, ambulatory subject supports the diagnosis of Diabetes Mellitus. Result Comment: [place] om Glucose Reference Range is dependent on time and content of last meal. Glucose of more than 200 mg/dL in a nonstressed, ambulatory subject supports the diagnosis of Diabetes Mellitus. ADA recommended reference range Performed By: #### L IPASE, CBC, CMP, HS TROP #### [facility] [address] [place] [address] Hematocrit [Volume Fraction] of Blood by Automated countOrdered By: Nicole Posadas on 04-02-2023 Hematocrit (Bld) [Volume fraction] 41.8 % Normal 34.0-46.4 [place] Comment on above: Performed By: #### L IPASE, CBC, CMP, HS TROP #### [facility] [address] Hemoglobin [Mass/volume] in BloodOrdered By: Nicole Posadas on 04-02-2023 Hemoglobin (Bld) [Mass/Vol] 14.2 g/dL Normal 11.8-15.4 [place] Comment on above: Performed By: #### L IPASE, CBC, CMP, HS TROP #### [facility] [address] [place] [address] Ketones Auto test strip (U) [Mass/Vol]Ordered By: Nicole Posadas on 04-02-2023 Ketones (U) [Mass/Vol] Negative Negative [facility] Leukocytes [#/volume] correc aurelia for nucleated erythrocytes in Blood by Automated counOrdered By: Nicole Posadas on 04-02-2023 WBC corrected for nucl RBC Auto (Bld) [#/Vol] 6.2 10*3/uL 3.8-11.6 [place] Leukocytes [#/volume] in Blo od by Automated countOrdered By: Nicole Posadas on 04-02-2023 WBC (Bld) [#/Vol] 6.2 10*3/uL Normal 3.8-11.6 [facility] Comment on above: Performed By: #### L IPASE, CBC, CMP, HS TROP #### [facility] [address] [place] [address] [place] Lipase [Enzymatic activity/v olume] in Serum or PlasmaOrdered By: Nicole Posadas on 04-02-2023 Lipase [Catalytic activity/Vol] 186.0 U/L High 11.0-82.0 [place] Comment on above: Result Comment: PERF ORMED BY: [place] [address] PATHOLOGIST OIL ANALYST PAULA RODRIGUES M.D. Performed By: #### L IPASE, CBC, CMP, HS TROP #### [facility] [address] [place] [address] [place] Lymphocytes [#/volume] in Bl ood by Automated countOrdered By: Nicole Posadas on 04-02-2023 Lymphocytes (Bld) [#/Vol] 1.8 10*3/uL Normal 1.00-4.8 [place] Comment on above: Performed By: #### L IPASE, CBC, CMP, HS TROP #### [facility] [address] [place] [address] [place] Lymphocytes/100 leukocytes i n Blood by Automated countOrdered By: Nicole Posadas on 04-02-2023 Lymphocytes/100 WBC (Bld) 29.2 % Normal . [place] Comment on above: Performed By: #### L IPASE, CBC, CMP, HS TROP #### [facility] [address] MCH [Entitic mass] by Automa aurelia countOrdered By: Nicole Posadas on 04-02-2023 MCH (RBC) [Entitic mass] 33.1 pg Normal 24.7-34.3 [place] Comment on above: Performed By: #### L IPASE, CBC, CMP, HS TROP #### [facility] [address] [place] [address] MCHC Auto (RBC) [Mass/Vol]Or dered By: Nicole Posadas on 04-02-2023 MCHC (RBC) [Mass/Vol] 34.0 g/dL 32.0-35.0 [facility] MCV [Entitic volume] by Auto mated countOrdered By: Nicole Posadas on 04-02-2023 MCV (RBC) [Entitic vol] 97.4 fL Normal 80-100 [place] Comment on above: Performed By: #### L IPASE, CBC, CMP, HS TROP #### [facility] [address] [place] [address] Monocyte distribution width [Entitic volume] in Blood by AutomatedOrdered By: Nicole Posadas on 04-02-2023 Monocyte distribution width Auto (Bld) [Entitic vol] 17.36 % 0.00-20.00 [place] Neutrophils [#/volume] in Bl ood by Automated countOrdered By: Nicole Posadas on 04-02-2023 Neutrophils (Bld) [#/Vol] 3.6 10*3/uL Normal 1.8-7.7 [place] Comment on above: Performed By: #### L IPASE, CBC, CMP, HS TROP #### [address] Nitrite Test strip Ql (U)Ord ered By: Nicole Posadas on 04-02-2023 Nitrite Ql (U) Negative Negative [place] No Panel InformationOrdered By: Nicole Posadas on 04-02-2023 Estimated GFR (CKD-EPI) > 60.0 mL/Min [place] [facility] Creatinine Clearance (Chem 62.75 [place] Nucleated erythrocytes [Pres ence] in Blood by Automated countOrdered By: Nicole Posadas on 04-02-2023 Nucleated RBC Auto Ql (Bld) 0.1 /100{WBC} 0-0.5 [place] Platelet mean volume [Entiti c volume] in Blood by Automated countOrdered By: Nicole Posadas on 04-02-2023 Platelet mean volume (Bld) [Entitic vol] 8.3 fL Normal 6.3-10.7 [place] Comment on above: Performed By: #### L IPASE, CBC, CMP, HS TROP #### [facility] [address] [place] [address] [place] Platelets [#/volume] in Bloo d by Automated countOrdered By: Nicole Posadas on 04-02-2023 Platelets (Bld) [#/Vol] 236 10*3/uL Normal 150-450 [place] Comment on above: Performed By: #### L IPASE, CBC, CMP, HS TROP #### [facility] [address] [place] [address] [place] Potassium [Moles/volume] in Serum or PlasmaOrdered By: Nicole Posadas on 04-02-2023 Potassium [Moles/Vol] 4.3 mmol/L Normal 3.5-5.1 [facility] Comment on above: Result Comment: PERF ORMED BY: [place] [address] PATHOLOGIST OIL ANALYST PAULA RODRIGUES M.D. Performed By: #### R EDKAYY K #### [facility] [address] [place] [address] [place] Protein Auto test strip (U) [Mass/Vol]Ordered By: Nicole Posadas on 04-02-2023 Protein (U) [Mass/Vol] Negative Negative [facility] Protein [Mass/volume] in Ser um or PlasmaOrdered By: Nicole Posadas on 04-02-2023 Protein [Mass/Vol] 6.6 g/dL Normal 6.4-8.9 [facility] Comment on above: Performed By: #### L IPASE, CBC, CMP, HS TROP #### [facility] [address] [place] [address] Serum globulin measurement b y calculation (mass/volume)Ordered By: Nicole Posadas on 04-02-2023 Globulin (S) [Mass/Vol] 2.4 g/dL Normal [place] Comment on above: Performed By: #### L IPASE, CBC, CMP, HS TROP #### [facility] [address] [place] [address] Serum or plasma albumin/glob ulin mass ratioOrdered By: Nicole Posadas on 04-02-2023 Albumin/Globulin [Mass ratio] 1.8 {ratio} [facility] Comment on above: Performed By: #### L IPASE, CBC, CMP, HS TROP #### [facility] [address] [place] [address] Serum or plasma anion gap de terminationOrdered By: Nicole Posadas on 04-02-2023 Anion gap [Moles/Vol] TNP [facility] Comment on above: Test not performed Sodium [Moles/volume] in Ser um or PlasmaOrdered By: Nicole Posadas on 04-02-2023 Sodium [Moles/Vol] 137 mmol/L Normal 136-145 [facility] Comment on above: Performed By: #### L IPASE, CBC, CMP, HS TROP #### [facility] [address] [place] [address] Specific gravity Auto test s trip (U) [Rel density]Ordered By: Nicole Posadas on 04-02-2023 Specific gravity (U) [Rel density] 1.022 1.001-1.03 0 [place] Troponin I High Sensitivityo n 04-02-2023 Troponin I High Sensitivity 2.6 pg/mL Normal 0.0-15.0 [facility] Comment on above: Result Comment: PERF ORMED BY: [place] [address] PATHOLOGIST OIL ANALYST PAULA RODRIGUES M.D. Performed By: #### L IPASE, CBC, CMP, HS TROP #### [facility] [address] Troponin I.cardiac [Mass/vol ume] in Serum or Plasma by Detection limit <= 0.01 ng/Ordered By: Nicole Posadas on 04-02-2023 Troponin I.cardiac DL <= 0.01 ng/mL [Mass/Vol] 2.6 pg/mL 0.0-15.0 [place] Urea nitrogen [Mass/volume] in Serum or PlasmaOrdered By: Nicole Posadas on 04-02-2023 Urea nitrogen [Mass/Vol] 7 mg/dL Normal 09-30 [place] Comment on above: Performed By: #### L IPASE, CBC, CMP, HS TROP #### [address] Urinalysison 04-02-2023 Appearance (U) Clear Normal Clear [facility] Comment on above: Order Comment: Name Collection Type:: Clean-Voided Midstream Performed By: #### U A #### [address] Bilirubin,Urine Negative Normal Negative [facility] Comment on above: Order Comment: Name Collection Type:: Clean-Voided Midstream Performed By: #### U A #### [address] Glucose Ql (U) Normal Normal Normal [facility] Comment on above: Order Comment: Name Collection Type:: Clean-Voided Midstream Performed By: #### U A #### [address] Ketones Ql (U) Negative Normal Negative [facility] Comment on above: Order Comment: Name Collection Type:: Clean-Voided Midstream Performed By: #### U A #### [address] Leukocyte esterase Test strip Ql (U) Negative Normal Negative [facility] Comment on above: Order Comment: Name Collection Type:: Clean-Voided Midstream Performed By: #### U A #### [place] [address] [place] Nitrite,Urine Negative Normal Negative [facility] Comment on above: Order Comment: Name Collection Type:: Clean-Voided Midstream Performed By: #### U A #### [address] Occult Blood,Urine Negative Normal Negative [facility] Comment on above: Order Comment: Name Collection Type:: Clean-Voided Midstream Result Comment: PERF ORMED BY: [place] [address] PATHOLOGIST OIL ANALYST PAULA RODRIGUES M.D. Performed By: #### U A #### [place] [address] [place] Protein,Urine Negative Normal Negative [facility] Comment on above: Order Comment: Name Collection Type:: Clean-Voided Midstream Performed By: #### U A #### [address] Specificy [place],Urine 1.022 Normal 1.001-1.03 0 [facility] Comment on above: Order Comment: Name Collection Type:: Clean-Voided Midstream Performed By: #### U A #### [place] [address] [place] Urobilin[place],Urine Normal Normal Normal [facility] Comment on above: Order Comment: Name Collection Type:: Clean-Voided Midstream Performed By: #### U A #### [place] [address] [place] Urine clarity by refractomet ry automatedOrdered By: Nicole Posadas on 04-02-2023 Clarity Refractometry automated (U) Clear Clear [place] Urine glucose measurement by automated test strip (mass/volume)Ordered By: Nicole Posadas on 04-02-2023 Glucose Auto test strip (U) [Mass/Vol] Normal mg/dL Normal [place] Urine hemoglobin detection b y automated test stripOrdered By: Nicole Posadas on 04-02-2023 Hemoglobin Auto test strip Ql (U) Negative Negative [place] Urine leukocyte esterase det ection by automated test stripOrdered By: Nicole Posadas on 04-02-2023 Leukocyte esterase Auto test strip Ql (U) Negative Negative [place] Urine pH measurement by auto mated test stripOrdered By: Nicole Posadas on 04-02-2023 pH (U) 5.5 [pH] Normal 5.0-9.0 [place] Comment on above: Order Comment: Name Collection Type:: Clean-Voided Midstream Performed By: #### U A #### [address] Urobilinogen Auto test strip (U) [Mass/Vol]Ordered By: Nicole Posadas on 04-02-2023 Urobilinogen (U) [Mass/Vol] Normal mg/dL Normal [place] CT ABDOMEN AND PELVIS W CONT on [...] MD on 03/27/2023 12:55 AM Normal [facility] CBC AND AUTO DIFFon 03-26-19 ABSOLUTE BASOPHIL 0.1 X10E9/L Normal 0.0-0.2 [facility] Comment on above: Performed By: #### C BCA, CMP, 3040-3, 58607-6, 63254-9, 84456- 9 #### [facility] ([id number]) [address] [place] [address] 78947 ABSOLUTE NEUTROPHIL 7.2 X10E9/L High 1.5-6.6 [facility] Comment on above: Performed By: #### C BCA, CMP, 3040-3, 87229-0, 63422-0, 07106- 9 #### [facility] ([id number]) [address] [place] [address] 82030 Basophils/100 WBC (Bld) 0.6 % Normal [facility] Comment on above: Performed By: #### C BCA, CMP, 3040-3, 91768-3, 89779-7, 61080- 9 #### [facility] ([id number]) [address] [place] [address] 13366 Eosinophils (Bld) [#/Vol] 0.0 10*3/uL Normal 0.0-0.4 [facility] Comment on above: Performed By: #### C BCA, CMP, 3040-3, 55967-2, 87098-1, 56825- 9 #### [facility] ([id number]) [address] [place] [address] 86059 Eosinophils/100 WBC (Bld) 0.1 % Normal [facility] Comment on above: Performed By: #### C BCA, CMP, 3040-3, 67014-2, 50260-6, 22622- 9 #### [facility] ([id number]) [address] [place] [address] 98489 Erythrocyte distribution width (RBC) [Ratio] 13.7 % Normal 11.5-15.0 [facility] Comment on above: Performed By: #### C BCA, CMP, 3040-3, 10434-7, 89314-8, - 9 #### [facility] ([id number]) [address] [place] [address] 58278 Hematocrit (Bld) [Volume fraction] 40.4 % Normal 35-47 [facility] Comment on above: Performed By: #### C BCA, CMP, 3040-3, 10197-3, 74437-3, - 9 #### [facility] ([id number]) [address] [place] [address] 62394 Hemoglobin (Bld) [Mass/Vol] 13.8 g/dL Normal 11.7-15.5 [facility] Comment on above: Performed By: #### C BCA, CMP, 3040-3, 27474-6, 47333-5, 56919- 9 #### [facility] ([id number]) [address] [place] [address] 45517 Lymphocytes (Bld) [#/Vol] 1.7 10*3/uL Normal 1.0-3.5 [facility] Comment on above: Performed By: #### C BCA, CMP, 3040-3, 78039-2, 45598-9, 71672- 9 #### [facility] ([id number]) [address] [place] [address] 92346 Lymphocytes/100 WBC (Bld) 17.8 % Normal [facility] Comment on above: Performed By: #### C BCA, CMP, 3040-3, 47701-4, 72388-1, 62825- 9 #### [facility] ([id number]) [address] [place] [address] 22100 MCH (RBC) [Entitic mass] 33.0 pg Normal 27-34 [facility] Comment on above: Performed By: #### C BCA, CMP, 3040-3, 83014-7, 14826-9, 96964- 9 #### [facility] ([id number]) [address] [place] [address] 90952 MCHC (RBC) [Mass/Vol] 34.1 g/dL Normal 32-36 [facility] Comment on above: Performed By: #### C BCA, CMP, 3040-3, 46579-2, 95087-6, 00993- 9 #### [facility] ([id number]) [address] [place] [address] 01745 MCV (RBC) [Entitic vol] 97 fL Normal 80-100 [facility] Comment on above: Performed By: #### C BCA, CMP, 3040-3, 71198-6, 88671-5, 76595- 9 #### [facility] ([id number]) [address] [place] [address] 43947 Monocytes (Bld) [#/Vol] 0.8 10*3/uL Normal 0-0.9 [facility] Comment on above: Performed By: #### C BCA, CMP, 3040-3, 71769-9, 44782-4, 99310- 9 #### [facility] ([id number]) [address] [place] [address] 56089 Monocytes/100 WBC (Bld) 7.8 % Normal [facility] Comment on above: Performed By: #### C BCA, CMP, 3040-3, 15909-5, 37948-5, 67110- 9 #### [facility] ([id number]) [address] [place] [address] 24948 Neutrophils/100 WBC (Bld) 73.7 % Normal [facility] Comment on above: Performed By: #### C BCA, CMP, 3040-3, 14786-7, 59419-3, 57897- 9 #### [facility] ([id number]) [address] [place] [address] 39440 Platelet mean volume (Bld) [Entitic vol] 7.6 fL Normal 7-12 [facility] Comment on above: Performed By: #### C BCA, CMP, 3040-3, 36837-1, 11847-2, 78906- 9 #### [facility] ([id number]) [address] [place] [address] 79777 Platelets (Bld) [#/Vol] 269 10*3/uL Normal 150-450 [facility] Comment on above: Performed By: #### C BCA, CMP, 3040-3, 55773-1, 46401-0, 37531- 9 #### [facility] ([id number]) [address] [place] [address] 13872 RBC COUNT 4.17 X10E12/L Normal 3.80-5.20 [facility] Comment on above: Performed By: #### C BCA, CMP, 3040-3, 94909-9, 02742-4, 53668- 9 #### [facility] ([id number]) [address] [place] [address] 30679 WBC (Bld) [#/Vol] 9.8 10*3/uL Normal 4.0-11.0 [facility] Comment on above: Performed By: #### C BCA, CMP, 3040-3, 36279-5, 88335-7, 62493- 9 #### [facility] ([id number]) [address] [place] [address] 56736 COMPREHENSIVE METABOLIC PANE Nimesh 03-26-2023 Albumin [Mass/Vol] 4.6 g/dL Normal 3.2-5.3 [facility] Comment on above: Performed By: #### C BCA, CMP, 3040-3, 81243-8, 05967-5, 90121- 9 #### [facility] ([id number]) [address] [place] [address] 89770 ALP [Catalytic activity/Vol] 125 U/L Normal 39-130 [facility] Comment on above: Performed By: #### C BCA, CMP, 3040-3, 61309-6, 47970-5, 26502- 9 #### [facility] ([id number]) [address] [place] [address] 00261 ALT [Catalytic activity/Vol] 17 U/L Normal 0-31 [facility] Comment on above: Performed By: #### C BCA, CMP, 3040-3, 53146-9, 68463-9, 36925- 9 #### [facility] ([id number]) [address] [place] [address] 37226 Anion gap [Moles/Vol] 10 mmol/L Normal 5-15 [facility] Comment on above: Performed By: #### C BCA, CMP, 3040-3, 59725-4, 48127-0, 76626- 9 #### [facility] ([id number]) [address] [place] [address] 86829 AST [Catalytic activity/Vol] 27 U/L Normal 0-41 [facility] Comment on above: Performed By: #### C BCA, CMP, 3040-3, 32830-2, 16892-2, 91190- 9 #### [facility] ([id number]) [address] [place] [address] 25705 Bilirubin [Mass/Vol] 0.4 mg/dL Normal 0.3-1.2 [facility] Comment on above: Performed By: #### C BCA, CMP, 3040-3, 05332-1, 49933-6, 38896- 9 #### [facility] ([id number]) [address] [place] [address] 51748 Calcium [Mass/Vol] 10.4 mg/dL Normal 8.5-10.5 [facility] Comment on above: Performed By: #### C BCA, CMP, 3040-3, 06090-8, 64379-5, 28310- 9 #### [facility] ([id number]) [address] [place] [address] 30163 Chloride [Moles/Vol] 103 mmol/L Normal 98-109 [facility] Comment on above: Performed By: #### C BCA, CMP, 3040-3, 84506-3, 92385-0, 65145- 9 #### [facility] ([id number]) [address] [place] [address] 67683 CO2 [Moles/Vol] 25 mmol/L Normal 22-32 [facility] Comment on above: Performed By: #### C BCA, CMP, 3040-3, 74602-8, 79448-5, 60794- 9 #### [facility] ([id number]) [address] [place] [address] 70863 Creatinine [Mass/Vol] 0.96 mg/dL Normal 0.40-1.00 [facility] Comment on above: Result Comment: METH OD TRACEABLE TO IDMS STANDARD Performed By: #### C BCA, CMP, 3040-3, 70413-9, 04631-7, 08792-5 #### [facility] ([id number]) [address] [place] [address] 59980 GFR/1.73 sq M.predicted among non-blacks MDRD (S/P/Bld) [Vol rate/Area] 71 mL/min/{1.73_m2} Normal >59 [facility] Comment on above: Result Comment: Reported eGFR is based on the CKD-EPI 2020 equation that does not use a race coefficient. Performed By: #### C BCA, CMP, 3040-3, 78893-7, 79931-3, 60362-3 #### [facility] ([id number]) [address] [place] [address] 95945 Glucose [Mass/Vol] 97 mg/dL Normal 65-99 [facility] Comment on above: Performed By: #### C BCA, CMP, 3040-3, 38416-7, 52627-7, 25685- 9 #### [facility] ([id number]) [address] [place] [address] 09119 Potassium [Moles/Vol] 4.2 mmol/L Normal 3.5-5.0 [facility] Comment on above: Performed By: #### C BCA, CMP, 3040-3, 55075-1, 51235-0, - 9 #### [facility] ([id number]) [address] [place] [address] 99933 Protein [Mass/Vol] 7.4 g/dL Normal 6.0-8.0 [facility] Comment on above: Performed By: #### C BCA, CMP, 3040-3, 18368-9, 98910-2, - 9 #### [facility] ([id number]) [address] [place] [address] 92178 Sodium [Moles/Vol] 138 mmol/L Normal 134-146 [facility] Comment on above: Performed By: #### C BCA, CMP, 3040-3, 82590-0, 50507-4, 47687- 9 #### [facility] ([id number]) [address] [place] [address] 45025 Urea nitrogen [Mass/Vol] 14 mg/dL Normal 5-23 [facility] Comment on above: Performed By: #### C BCA, CMP, 3040-3, 66385-8, 45460-9, 49085- 9 #### [facility] ([id number]) [address] [place] [address] 94271 LIPASEon 03-26-2023 Lipase [Catalytic activity/Vol] 31 U/L Normal 17-40 [facility] Comment on above: Performed By: #### C EZEQUIEL, CMP, 3040-3, 18855-4, 52048-1, - 9 #### [facility] ([id number]) [address] [place] [address] 70707 Lactate (P richard) [Moles/Vol]o n 03-26-2023 LACTATE W/REFLEX 1.2 mmol/L Normal 0.4-2.0 [facility] Comment on above: Result Comment: Result did not trigger repeat Lactate, re-order if needed. Performed By: #### C EZEQUIEL, CMP, 3040-3, 35821-9, 35078-6, 46932-3 #### [facility] ([id number]) [address] [place] [address] 71959 MAGNESIUMon 03-26-2023 Magnesium [Mass/Vol] 2.0 mg/dL Normal 1.8-2.6 [facility] Comment on above: Performed By: #### C EZEQUIEL, CMP, 3040-3, 06470-1, 35029-7, - 9 #### [facility] ([id number]) [address] [place] [address] 49229 TROPONIN Ion 03-26-2023 Troponin I.cardiac [Mass/Vol] ng/mL Normal 0.00-0.04 [facility] Comment on above: Performed By: #### C BCA, CMP, 3040-3, 35623-7, 66474-1, - 9 #### [facility] ([id number]) [address] [place] [address] 04093 Alanine aminotransferase [En zymatic activity/volume] in Serum or PlasmaOrdered By: Nicole Posadas on 11-09-2022 ALT [Catalytic activity/Vol] 12 U/L Normal 7-52 [place] Comment on above: Performed By: #### C MP, LIPASE, CBC #### [address] Albumin [Mass/volume] in Ser um or Plasma by Bromocresol green (BCG) dye binding methoOrdered By: Nicole Posadas on 11-09-2022 Albumin BCG dye [Mass/Vol] 4.4 g/dL 3.5-5.7 [place] Alkaline phosphatase [Enzyma tic activity/volume] in Serum or PlasmaOrdered By: Nicole Posadas on 11-09-2022 ALP [Catalytic activity/Vol] 126 U/L High 34-104 [place] Comment on above: Performed By: #### C MP, LIPASE, CBC #### [address] Aspartate aminotransferase [ Enzymatic activity/volume] in Serum or PlasmaOrdered By: Nicole Posadas on 11-09-2022 AST [Catalytic activity/Vol] 17 U/L Normal 13-39 [place] Comment on above: Performed By: #### C MP, LIPASE, CBC #### [address] Automated basophil %Ordered By: Nicole Posadas on 11-09-2022 Basophils/100 WBC (Bld) 0.9 % Normal . [place] Comment on above: Performed By: #### C MP, LIPASE, CBC #### [address] Automated basophil countOrde red By: Nicole Posadas on 11-09-2022 Basophils (Bld) [#/Vol] 0.1 10*3/uL Normal 0.0-0.2 [place] Comment on above: Result Comment: PERF ORMED BY: [place] [address] PATHOLOGIST OIL ANALYST PAULA RODRIGUES M.D. Performed By: #### C MP, LIPASE, CBC #### [address] Automated blood monocyte cou ntOrdered By: Nicole Posadas on 11-09-2022 Monocytes (Bld) [#/Vol] 0.8 10*3/uL Normal 0.0-0.8 [place] Comment on above: Performed By: #### C MP, LIPASE, CBC #### [address] Automated eosinophil %Ordere d By: Nicole Posadas on 11-09-2022 Eosinophils/100 WBC (Bld) 1.6 % Normal . [place] Comment on above: Performed By: #### C MP, LIPASE, CBC #### [address] Automated eosinophil countOr dered By: Nicole Posadas on 11-09-2022 Eosinophils (Bld) [#/Vol] 0.1 10*3/uL Normal 0.0-0.45 [place] Comment on above: Performed By: #### C MP, LIPASE, CBC #### [address] Automated monocyte %Ordered By: Nicole Posadas on 11-09-2022 Monocytes/100 WBC (Bld) 8.1 % Normal . [place] Comment on above: Performed By: #### C MP, LIPASE, CBC #### [address] Automated neutrophil %Ordere d By: Nicole Posadas on 11-09-2022 Neutrophils/100 WBC (Bld) 65.4 % Normal . [place] Comment on above: Performed By: #### C MP, LIPASE, CBC #### [address] Automated urine color determ inationOrdered By: Nicole Posadas on 11-09-2022 Color (U) Yellow Normal Yellow [place] Comment on above: Order Comment: Name Collection Type:: Clean-Voided Midstream Performed By: #### L IPASE, CBC, CMP, HS TROP #### [address] Bilirubin Test strip Ql (U)O rdered By: Nicole Posadas on 11-09-2022 Bilirubin Ql (U) Negative Negative [facility] Bilirubin.total [Mass/volume ] in Serum or PlasmaOrdered By: Nicole Posadas on 11-09-2022 Bilirubin [Mass/Vol] 0.3 mg/dL Normal 0.3-1.0 [facility] Comment on above: Performed By: #### C MP, LIPASE, CBC #### [address] abdomen pelvis w conon CT abdomen pelvis w con [facility] [place] [address] [place] [address] CT Scan Report Signed Patient: Chioma Arciniega MR#: [id number] : 1970 Acct:[id number] Age/Sex: 52 / F ADM Date: 11/09/22 Loc: ER Room: Type: [facility] ER Attending Dr: Copies to: Nicole [...] Rajeev Ulloa M.D.11/09/2022 4:14 PM Dictation Location: [place] [address] Transcribed By: [facility] 11/09/22 1614 Dictated By: Rajeev Ulloa II, MD 11/09/22 1608 Signed By: 11/09/22 1614 Normal [facility] Calcium [Mass/volume] in Ser um or PlasmaOrdered By: Nicole Posadas on 11-09-2022 Calcium [Mass/Vol] 9.7 mg/dL Normal 8.6-10.3 [facility] Comment on above: Performed By: #### C MP, LIPASE, CBC #### [address] Carbon dioxide, total [Moles /volume] in Serum or PlasmaOrdered By: Nicole Posadas on 11-09-2022 CO2 [Moles/Vol] 28.6 mmol/L Normal 21.0-31.0 [facility] Comment on above: Performed By: #### C MP, LIPASE, CBC #### [facility] [address] [place] [address] [place] Chloride [Moles/volume] in S erika or PlasmaOrdered By: Nicole Posadas on 11-09-2022 Chloride [Moles/Vol] 107 mmol/L Normal 98-107 [facility] Comment on above: Performed By: #### C MP, LIPASE, CBC #### [facility] [address] Complete Blood Count Auto Di ffon 11-09-2022 Mean Corpuscular HGB Conc 33.4 g/dL Normal 32.0-35.0 [facility] Comment on above: Performed By: #### C MP, LIPASE, CBC #### [address] Monocytes/100 WBC (Bld) 18.76 % Normal 0.00-20.00 [facility] Comment on above: Performed By: #### C MP, LIPASE, CBC #### [address] NRBC% 0.0 /100{WBC} Normal 0-0.5 [facility] Comment on above: Performed By: #### C MP, LIPASE, CBC #### [address] Comprehensive Metabolic Pane nimesh 11-09-2022 Albumin [Mass/Vol] 4.4 g/dL Normal 3.5-5.7 [facility] Comment on above: Performed By: #### C MP, LIPASE, CBC #### [address] Creatinine Clr Calc Pharmacy 69.00 Normal [facility] Comment on above: Performed By: #### C MP, LIPASE, CBC #### [address] GFR/1.73 sq M.predicted MDRD (S/P/Bld) [Vol rate/Area] mL/min/{1.73_m2} Normal [facility] Comment on above: Performed By: #### C MP, LIPASE, CBC #### [address] Creatinine [Mass/volume] in Serum or PlasmaOrdered By: Nicole Posadas on 11-09-2022 Creatinine [Mass/Vol] 0.78 mg/dL Normal 0.60-1.20 [facility] Comment on above: Performed By: #### C MP, LIPASE, CBC #### [address] ECG 12 lead ECGon 11-09-2022 ECG 12 lead ECG [facility] [place] [address] [place] [address] Electrocardiograph Report Signed Patient: Chioma Arciniega MR#: [id number] : 1970 Acct:[id number] Age/Sex: 52 / F ADM Date: 11/09/22 Loc: ER Room: Type: [facility] ER Attending Dr: Ordering Provider: Nicole Posadas [...] Agustin Llanes MD 06/29 0147 Normal [facility] Erythrocyte distribution wid th [Ratio] by Automated countOrdered By: Nicole Posadas on 11-09-2022 Erythrocyte distribution width (RBC) [Ratio] 13.6 % Normal 11.9-15.3 [place] Comment on above: Performed By: #### C MP, LIPASE, CBC #### [facility] [address] [place] [address] [place] Erythrocytes [#/volume] in B lood by Automated countOrdered By: Nicole Posadas on 11-09-2022 RBC (Bld) [#/Vol] 4.52 10*6/uL Normal 3.60-5.00 [facility] Comment on above: Performed By: #### C MP, LIPASE, CBC #### [facility] [address] [place] [address] [place] Glucose [Mass/volume] in Ser um or PlasmaOrdered By: Nicole Posadas on 11-09-2022 Glucose [Mass/Vol] 96 mg/dL Normal 70-100 [facility] Comment on above: ADA recommended refe rence rangeRandom Glucose Reference Range is dependent on time and content of last meal. Glucose of more than 200 mg/dL in a nonstressed, ambulatory subject supports the diagnosis of Diabetes Mellitus. Result Comment: [place] om Glucose Reference Range is dependent on time and content of last meal. Glucose of more than 200 mg/dL in a nonstressed, ambulatory subject supports the diagnosis of Diabetes Mellitus. ADA recommended reference range Performed By: #### C MP, LIPASE, CBC #### [facility] [address] Hematocrit [Volume Fraction] of Blood by Automated countOrdered By: Nicole Posadas on 11-09-2022 Hematocrit (Bld) [Volume fraction] 44.4 % Normal 34.0-46.4 [place] Comment on above: Performed By: #### C MP, LIPASE, CBC #### [facility] [address] Hemoglobin [Mass/volume] in BloodOrdered By: Nicole Posadas on 11-09-2022 Hemoglobin (Bld) [Mass/Vol] 14.9 g/dL Normal 11.8-15.4 [place] Comment on above: Performed By: #### C MP, LIPASE, CBC #### [address] Ketones Auto test strip (U) [Mass/Vol]Ordered By: Nicole Posadas on 11-09-2022 Ketones (U) [Mass/Vol] Negative Negative [facility] Leukocytes [#/volume] correc aurelia for nucleated erythrocytes in Blood by Automated counOrdered By: Nicole Posadas on 11-09-2022 WBC corrected for nucl RBC Auto (Bld) [#/Vol] 9.3 10*3/uL 3.8-11.6 [place] Leukocytes [#/volume] in Blo od by Automated countOrdered By: Nicole Posadas on 11-09-2022 WBC (Bld) [#/Vol] 9.3 10*3/uL Normal 3.8-11.6 [facility] Comment on above: Performed By: #### C MP, LIPASE, CBC #### [address] Lipase [Enzymatic activity/v olume] in Serum or PlasmaOrdered By: Nicole Posadas on 11-09-2022 Lipase [Catalytic activity/Vol] 78.0 U/L Normal 11.0-82.0 [place] Comment on above: Result Comment: PERF ORMED BY: [place] [address] PATHOLOGIST OIL ANALYST PAULA RODRIGUES M.D. Performed By: #### C MP, LIPASE, CBC #### [address] Lymphocytes [#/volume] in Bl ood by Automated countOrdered By: Nicole Posadas on 11-09-2022 Lymphocytes (Bld) [#/Vol] 2.2 10*3/uL Normal 1.00-4.8 [place] Comment on above: Performed By: #### C MP, LIPASE, CBC #### [address] Lymphocytes/100 leukocytes i n Blood by Automated countOrdered By: Nicole Posadas on 11-09-2022 Lymphocytes/100 WBC (Bld) 24.0 % Normal . [place] Comment on above: Performed By: #### C MP, LIPASE, CBC #### [address] MCH [Entitic mass] by Automa aurelia countOrdered By: Nicole Posadas on 11-09-2022 MCH (RBC) [Entitic mass] 32.8 pg Normal 24.7-34.3 [place] Comment on above: Performed By: #### C MP, LIPASE, CBC #### [address] MCHC Auto (RBC) [Mass/Vol]Or dered By: Nicole Posadas on 11-09-2022 MCHC (RBC) [Mass/Vol] 33.4 g/dL 32.0-35.0 [facility] MCV [Entitic volume] by Auto mated countOrdered By: Nicole Posadas on 11-09-2022 MCV (RBC) [Entitic vol] 98.2 fL Normal 80-100 [place] Comment on above: Performed By: #### C MP, LIPASE, CBC #### [facility] [address] Monocyte distribution width [Entitic volume] in Blood by AutomatedOrdered By: Nicole Posadas on 11-09-2022 Monocyte distribution width Auto (Bld) [Entitic vol] 18.76 % 0.00-20.00 [place] Neutrophils [#/volume] in Bl ood by Automated countOrdered By: Nicole Posadas on 11-09-2022 Neutrophils (Bld) [#/Vol] 6.1 10*3/uL Normal 1.8-7.7 [place] Comment on above: Performed By: #### C MP, LIPASE, CBC #### [facility] [address] [place] [address] Nitrite Test strip Ql (U)Ord ered By: Nicole Posadas on 11-09-2022 Nitrite Ql (U) Negative Negative [place] No Panel InformationOrdered By: Nicole Posadas on 11-09-2022 Estimated GFR (CKD-EPI) > 60.0 mL/Min [place] [facility] Creatinine Clearance (Chem 69.00 [place] Nucleated erythrocytes [Pres ence] in Blood by Automated countOrdered By: Nicole Posadas on 11-09-2022 Nucleated RBC Auto Ql (Bld) 0.0 /100{WBC} 0-0.5 [place] Platelet mean volume [Entiti c volume] in Blood by Automated countOrdered By: Nicole Posadas on 11-09-2022 Platelet mean volume (Bld) [Entitic vol] 8.3 fL Normal 6.3-10.7 [place] Comment on above: Performed By: #### C MP, LIPASE, CBC #### [facility] [address] [place] [address] [place] Platelets [#/volume] in Bloo d by Automated countOrdered By: Nicole Posdaas on 11-09-2022 Platelets (Bld) [#/Vol] 246 10*3/uL Normal 150-450 [place] Comment on above: Performed By: #### C MP, LIPASE, CBC #### [address] Potassium [Moles/volume] in Serum or PlasmaOrdered By: Nicole Posadas on 11-09-2022 Potassium [Moles/Vol] 3.7 mmol/L Normal 3.5-5.1 [facility] Comment on above: Performed By: #### C MP, LIPASE, CBC #### [address] Protein Auto test strip (U) [Mass/Vol]Ordered By: Nicole Posadas on 11-09-2022 Protein (U) [Mass/Vol] Negative Negative [facility] Protein [Mass/volume] in Ser um or PlasmaOrdered By: Nicole Posadas on 11-09-2022 Protein [Mass/Vol] 7.1 g/dL Normal 6.4-8.9 [facility] Comment on above: Performed By: #### C MP, LIPASE, CBC #### [address] Serum globulin measurement b y calculation (mass/volume)Ordered By: Nicole Posadas on 11-09-2022 Globulin (S) [Mass/Vol] 2.7 g/dL [facility] Comment on above: Performed By: #### C MP, LIPASE, CBC #### [facility] [address] [place] [address] Serum or plasma albumin/glob ulin mass ratioOrdered By: Nicole Posadas on 11-09-2022 Albumin/Globulin [Mass ratio] 1.6 {ratio} [facility] Comment on above: Performed By: #### C MP, LIPASE, CBC #### [address] Serum or plasma anion gap de terminationOrdered By: Nicole Posadas on 11-09-2022 Anion gap [Moles/Vol] 8.1 mmol/L Normal 6.0-15.0 [facility] Comment on above: Performed By: #### C MP, LIPASE, CBC #### [address] Sodium [Moles/volume] in Ser um or PlasmaOrdered By: Nicole Posadas on 11-09-2022 Sodium [Moles/Vol] 140 mmol/L Normal 136-145 [facility] Comment on above: Performed By: #### C MP, LIPASE, CBC #### [address] Specific gravity Auto test s trip (U) [Rel density]Ordered By: Nicole Posadas on 11-09-2022 Specific gravity (U) [Rel density] 1.012 1.001-1.03 0 [place] Troponin I High Sensitivityo n 11-09-2022 Troponin I High Sensitivity 3.0 pg/mL Normal 0.0-15.0 [facility] Comment on above: Result Comment: PERF ORMED BY: [place] [address] PATHOLOGIST OIL ANALYST PAULA RODRIGUES M.D. Performed By: #### H S TROP #### [address] Troponin I.cardiac [Mass/vol ume] in Serum or Plasma by Detection limit <= 0.01 ng/Ordered By: Nicole Posadas on 11-09-2022 Troponin I.cardiac DL <= 0.01 ng/mL [Mass/Vol] 3.0 pg/mL 0.0-15.0 [place] Urea nitrogen [Mass/volume] in Serum or PlasmaOrdered By: Nicole Posadas on 11-09-2022 Urea nitrogen [Mass/Vol] 6 mg/dL Low 7-25 [place] Comment on above: Performed By: #### C MP, LIPASE, CBC #### [place] [address] [place] Urinalysison 11-09-2022 Appearance (U) Clear Normal Clear [facility] Comment on above: Order Comment: Name Collection Type:: Clean-Voided Midstream Performed By: #### L IPASE, CBC, CMP, HS TROP #### [place] [address] [place] Bilirubin,Urine Negative Normal Negative [facility] Comment on above: Order Comment: Name Collection Type:: Clean-Voided Midstream Performed By: #### L IPASE, CBC, CMP, HS TROP #### [place] [address] [place] Glucose Ql (U) Normal Normal Normal [facility] Comment on above: Order Comment: Name Collection Type:: Clean-Voided Midstream Performed By: #### L IPASE, CBC, CMP, HS TROP #### [address] Ketones Ql (U) Negative Normal Negative [facility] Comment on above: Order Comment: Name Collection Type:: Clean-Voided Midstream Performed By: #### L IPASE, CBC, CMP, HS TROP #### [place] [address] [place] Leukocyte esterase Test strip Ql (U) Negative Normal Negative [facility] Comment on above: Order Comment: Name Collection Type:: Clean-Voided Midstream Performed By: #### L IPASE, CBC, CMP, HS TROP #### [place] [address] [place] Nitrite,Urine Negative Normal Negative [facility] Comment on above: Order Comment: Name Collection Type:: Clean-Voided Midstream Performed By: #### L IPASE, CBC, CMP, HS TROP #### [place] [address] [place] Occult Blood,Urine Negative Normal Negative [facility] Comment on above: Order Comment: Name Collection Type:: Clean-Voided Midstream Result Comment: PERF ORMED BY: [place] [address] PATHOLOGIST OIL ANALYST PAULA RODRIGUES M.D. Performed By: #### L IPASE, CBC, CMP, HS TROP #### [facility] [address] [place] [address] [place] Protein,Urine Negative Normal Negative [facility] Comment on above: Order Comment: Name Collection Type:: Clean-Voided Midstream Performed By: #### L IPASE, CBC, CMP, HS TROP #### [facility] [address] Specificy [place],Urine 1.012 Normal 1.001-1.03 0 [facility] Comment on above: Order Comment: Name Collection Type:: Clean-Voided Midstream Performed By: #### L IPASE, CBC, CMP, HS TROP #### [facility] [address] Urobilinogen,Urine Normal Normal Normal [facility] Comment on above: Order Comment: Name Collection Type:: Clean-Voided Midstream Performed By: #### L IPASE, CBC, CMP, HS TROP #### [facility] [address] Urine clarity by refractomet ry automatedOrdered By: Nicole Posadas on 11-09-2022 Clarity Refractometry automated (U) Clear Clear [place] Urine glucose measurement by automated test strip (mass/volume)Ordered By: Nicole Posadas on 11-09-2022 Glucose Auto test strip (U) [Mass/Vol] Normal mg/dL Normal [place] Urine hemoglobin detection b y automated test stripOrdered By: Nicole Posadas on 11-09-2022 Hemoglobin Auto test strip Ql (U) Negative Negative [place] Urine leukocyte esterase det ection by automated test stripOrdered By: Nicole Posadas on 11-09-2022 Leukocyte esterase Auto test strip Ql (U) Negative Negative [place] Urine pH measurement by auto mated test stripOrdered By: Nicole Posadas on 11-09-2022 pH (U) 5.5 [pH] Normal 5.0-9.0 [place] Comment on above: Order Comment: Name Collection Type:: Clean-Voided Midstream Performed By: #### L IPASE, CBC, CMP, HS TROP #### [facility] [address] [place] [id number] [facility] Urobilinogen Auto test strip (U) [Mass/Vol]Ordered By: Nicole Posadas on 11-09-2022 Urobilinogen (U) [Mass/Vol] Normal mg/dL Normal [place] UPPER EUSon 08-12-2022 [facility] Gastroenterology Patient Name: Chioma Rainey Procedure Date: 08/12/2022 11:09 AM Date of : 1970 Admit Type: Outpatient Age: 52 Room: EUS Proc Room 01 Gender: Female Note Status: Finalized Attending MD: Sabrina Dee MD, MPH, [id number] Procedure: Upper EUS Indications: Chronic pancreatitis, Epigastric abdominal pain, Celiac plexus block for pain secondary to chronic pancreatitis, Dysphagia, Follow-up of esophageal stenosis, For therapy of esophageal stenosis Providers: Sabrina Dee MD, MPH (Doctor), Kolby Gifford RN (Nurse), Elba Faustin (Nurse), Mary Gaviria Swatch Paster (Swatch Paster) Referring MD: Elie Nichols MD (Referring MD) [...] by the physician, the nurse and the telephone worker in the procedure room. Mental Status Examination: [...] abnor (more content not included)... LAB, [facility] Radiology Study observation (narrative) [facility] AMYLASEon 06-13-2022 Amylase [Catalytic activity/Vol] 92 U/L Normal 25-115 [facility] Comment on above: Performed By: #### L IPA, CMP, CRP, NAT #### [facility] [address] [place] [address] Dr. Keturah Fisher CBC AUTO DIFFon 06-13-2022 BASO # 0.1 103/ul Normal 0.0-0.1 [facility] Comment on above: Performed By: #### L IPA, CMP, CRP, NAT #### [facility] [address] [place] [address] Dr. Keturah Fisher Basophils/100 WBC (Bld) 0.7 % Normal 0.2-2.0 [facility] Comment on above: Performed By: #### L IPA, CMP, CRP, NAT #### [facility] [address] [place] [address] Dr. Keturah Fisher EO # 0.1 103/ul Normal 0.0-0.7 [facility] Comment on above: Performed By: #### L IPA, CMP, CRP, NAT #### [facility] [address] [place] [address] Dr. Keturah Fisher Eosinophils/100 WBC (Bld) 1.1 % Normal 0.9-7.0 [facility] Comment on above: Performed By: #### L IPA, CMP, CRP, NAT #### [facility] [address] [place] [address] Dr. Keturah Fisher Erythrocyte distribution width (RBC) [Ratio] 13.0 % Normal 11.0-15.0 [facility] Comment on above: Performed By: #### L IPA, CMP, CRP, NAT #### [facility] [address] [place] [address] Dr. Keturah Fisher Hematocrit (Bld) [Volume fraction] 40.5 % Normal 36.0-48.0 [facility] Comment on above: Performed By: #### L IPA, CMP, CRP, NAT #### [facility] [address] [place] [address] Dr. Keturah Fisher Hemoglobin (Bld) [Mass/Vol] 13.9 g/dL Normal 12.0-16.0 [facility] Comment on above: Performed By: #### L IPA, CMP, CRP, NAT #### [facility] [address] [place] [address] Dr. Keturah Fisher IG # 0.03 10e3/ul Normal 0.00-0.03 [facility] Comment on above: Performed By: #### L IPA, CMP, CRP, NAT #### [facility] [address] [place] [address] Dr. Keturah Fisher IG % 0.3 % Normal 0.0-0.5 [facility] Comment on above: Performed By: #### L IPA, CMP, CRP, NAT #### [facility] [address] [address] [address] Keturah Fisher LYMPH # 2.9 103/ul Normal 1.2-3.8 [facility] Comment on above: Performed By: #### L IPA, CMP, CRP, NAT #### [facility] [address] [place] [address] Dr. Keturah Fisher Lymphocytes/100 WBC (Bld) 25.0 % Normal 20.5-60.0 [facility] Comment on above: Performed By: #### L IPA, CMP, CRP, NAT #### [facility] [address] [place] [address] Dr. Keturah Fisher MANUAL DIFF REQ NO Normal [facility] Comment on above: Performed By: #### L IPA, CMP, CRP, NAT #### [facility] [address] [place] [address] Dr. Keturah Fisher MCH (RBC) [Entitic mass] 33.3 pg Normal 26.7-34.0 [facility] Comment on above: Performed By: #### L IPA, CMP, CRP, NAT #### [facility] [address] [place] [address] Dr. Keturah Fisher MCHC (RBC) [Mass/Vol] 34.3 g/dL Normal 29.9-35.2 [facility] Comment on above: Performed By: #### L IPA, CMP, CRP, NAT #### [facility] [address] [place] [address] Dr. Keturah Fisher MCV (RBC) [Entitic vol] 96.9 fL Normal 81.0-99.0 [facility] Comment on above: Performed By: #### L IPA, CMP, CRP, NAT #### [facility] [address] [place] [address] Dr. Keturah Fisher MONO # 0.7 103/ul Normal 0.3-0.8 [facility] Comment on above: Performed By: #### L IPA, CMP, CRP, NAT #### [facility] [address] [place] [address] Dr. Keturah Fisher Monocytes/100 WBC (Bld) 5.6 % Normal 1.7-12.0 [facility] Comment on above: Performed By: #### L IPA, CMP, CRP, NAT #### [facility] [address] [place] [address] Dr. Keturah Fisher NEUT # 7.8 103/ul Critically high 1.4-6.5 [facility] Comment on above: Performed By: #### L IPA, CMP, CRP, NAT #### [facility] [address] [place] [address] Dr. Keturah Fisher Neutrophils/100 WBC (Bld) 67.3 % Normal 43.0-75.0 [facility] Comment on above: Performed By: #### L IPA, CMP, CRP, NAT #### [facility] [address] [place] [address] Dr. Keturah Fisher Platelet mean volume (Bld) [Entitic vol] 9.5 fL Normal 9.5-13.5 [facility] Comment on above: Performed By: #### L IPA, CMP, CRP, NAT #### [facility] [address] [place] [address] Dr. Keturah Fisher PLT 227 103/ul Normal 150-450 [facility] Comment on above: Performed By: #### L IPA, CMP, CRP, NAT #### [facility] [address] [place] [address] Dr. Keturah Fisher RBC 4.18 106/ul Critically low 4.20-5.40 [facility] Comment on above: Performed By: #### L IPA, CMP, CRP, NAT #### [facility] [address] [place] [address] Dr. Keturah Fisher WBC 11.5 103/ul Critically high 4.0-11.0 [facility] Comment on above: Performed By: #### L IPA, CMP, CRP, NAT #### [facility] [address] [place] [address] Dr. Keutrah Fisher LIPASEon 06-13-2022 Lipase [Catalytic activity/Vol] 168.0 U/L Normal 73.0-393.0 [facility] Comment on above: Performed By: #### L IPA, CMP, CRP, NAT #### [facility] [address] [place] [address] Dr. Keturah Fisher PROF 14(COMP METB)on 023 Albumin [Mass/Vol] 3.6 g/dL Normal 3.4-5.0 [facility] Comment on above: Performed By: #### L IPA, CMP, CRP, NAT #### [facility] [address] [place] [address] Dr. Keturah Fisher Albumin/Globulin [Mass ratio] 1.1 {ratio} Normal [facility] Comment on above: Performed By: #### L IPA, CMP, CRP, NAT #### [facility] [address] [place] [address] Dr. Keturah Fisher ALP [Catalytic activity/Vol] 132 U/L Critically high 46-116 [facility] Comment on above: Performed By: #### L IPA, CMP, CRP, NAT #### [facility] [address] [place] [address] Dr. Keturah Fisher ALT [Catalytic activity/Vol] 20 U/L Normal 14-59 [facility] Comment on above: Performed By: #### L IPA, CMP, CRP, NAT #### [facility] [address] [place] [address] Dr. Keturah Fisher Anion gap [Moles/Vol] 13.7 mmol/L Normal [facility] Comment on above: Performed By: #### L IPA, CMP, CRP, NAT #### [facility] [address] [place] [address] Dr. Keturah Fisher AST [Catalytic activity/Vol] 19 U/L Normal 15-37 [facility] Comment on above: Performed By: #### L IPA, CMP, CRP, NAT #### [facility] [address] [place] [address] Dr. Keturah Fisher Bilirubin [Mass/Vol] 0.1 mg/dL Critically low 0.2-1.0 [facility] Comment on above: Performed By: #### L IPA, CMP, CRP, NAT #### [facility] [address] [place] [address] Dr. Keturah Fisher Calcium [Mass/Vol] 10.1 mg/dL Normal 8.5-10.1 [facility] Comment on above: Performed By: #### L IPA, CMP, CRP, NAT #### [facility] [address] [address] [address] Keturah Fisher Chloride [Moles/Vol] 104 mmol/L Normal 98-107 [facility] Comment on above: Performed By: #### L IPA, CMP, CRP, NAT #### [facility] [address] [address] [address] Keturah Fisher CO2 [Moles/Vol] 26.7 mmol/L Normal 21.0-32.0 [facility] Comment on above: Performed By: #### L IPA, CMP, CRP, NAT #### [facility] [address] [place] [address] Dr. Keturah Fisher Creatinine [Mass/Vol] 0.83 mg/dL Normal 0.55-1.02 [facility] Comment on above: Performed By: #### L IPA, CMP, CRP, NAT #### [facility] [address] [place] [address] Dr. Keturah Fisher EGFR-AF MONGOLIAN >60 Normal >=60 [facility] Comment on above: Performed By: #### L IPA, CMP, CRP, NAT #### [facility] [address] [place] [address] Dr. Keturah Fisher EGFR-NON AF MONGOLIAN >60 Normal >=60 [facility] Comment on above: Performed By: #### L IPA, CMP, CRP, NAT #### [facility] [address] [address] [address] Keturah Fisher Globulin (S) [Mass/Vol] 3.4 g/dL Normal [facility] Comment on above: Performed By: #### L IPA, CMP, CRP, NAT #### [facility] [address] [place] [address] Dr. Keturah Fisher Glucose [Mass/Vol] 115 mg/dL Critically high 74-106 [facility] Comment on above: Performed By: #### L IPA, CMP, CRP, NAT #### [facility] [address] [address] [address] Keturah Fisher Potassium [Moles/Vol] 3.4 mmol/L Critically low 3.5-5.1 [facility] Comment on above: Performed By: #### L IPA, CMP, CRP, NAT #### [facility] [address] [address] [address] Keturah Fisher Protein [Mass/Vol] 7.0 g/dL Normal 6.4-8.2 [facility] Comment on above: Performed By: #### L IPA, CMP, CRP, NAT #### [facility] [address] [address] [address] Keturah Fisher Sodium [Moles/Vol] 141 mmol/L Normal 136-145 [facility] Comment on above: Performed By: #### L IPA, CMP, CRP, NAT #### [facility] [address] [address] [address] Keturah Fisher Urea nitrogen [Mass/Vol] 9.0 mg/dL Normal 7.0-18.0 [facility] Comment on above: Performed By: #### L IPA, CMP, CRP, NAT #### [facility] [address] [place] [address] Dr. Keturah Fisher Urea nitrogen/Creatinine [Mass ratio] 10.8 mg/mg Normal [facility] Comment on above: Performed By: #### L IPA, CMP, CRP, NAT #### [facility] [address] [place] [address] Dr. Keturah Fisher XR ABD FLAT UP_PA [...] ION KRUSE Date: 2022-06-13 17:10 Normal [facility] AMYLASEon 03-29-2022 Amylase [Catalytic activity/Vol] 141 U/L Critically high 25-115 [facility] Comment on above: Performed By: #### L IVER, LIPA, BMP, NAT ####[facility] [address] [place] [address]Dr. Keturah Fisher CBC AUTO DIFFon 03-29-2022 BASO # 0.1 103/ul Normal 0.0-0.1 [facility] Comment on above: Performed By: #### L IPA, CMP, CRP, NAT #### [facility] [address] [address] [address] Keturah Fisher Basophils/100 WBC (Bld) 0.6 % Normal 0.2-2.0 [facility] Comment on above: Performed By: #### L IPA, CMP, CRP, NAT #### [facility] [address] [address] [address] Keturah Fisher EO # 0.1 103/ul Normal 0.0-0.7 [facility] Comment on above: Performed By: #### L IPA, CMP, CRP, NAT #### [facility] [address] [address] [address] Keturah Fisher Eosinophils/100 WBC (Bld) 0.7 % Critically low 0.9-7.0 [facility] Comment on above: Performed By: #### L IPA, CMP, CRP, NAT #### [facility] [address] [address] [address] Keturah Fisher Erythrocyte distribution width (RBC) [Ratio] 12.9 % Normal 11.0-15.0 [facility] Comment on above: Performed By: #### L IPA, CMP, CRP, NAT #### [facility] [address] [address] [address] Keturah Fisher Hematocrit (Bld) [Volume fraction] 39.7 % Normal 36.0-48.0 [facility] Comment on above: Performed By: #### L IPA, CMP, CRP, NAT #### [facility] [address] [address] [address] Keturah Fisher Hemoglobin (Bld) [Mass/Vol] 14.7 g/dL Normal 12.0-16.0 [facility] Comment on above: Performed By: #### L IPA, CMP, CRP, NAT #### [facility] [address] [address] [address] Keturah Fisher IG # 0.04 10e3/ul Critically high 0.00-0.03 [facility] Comment on above: Performed By: #### L IPA, CMP, CRP, NAT #### [facility] [address] [place] [address] Dr. Keturah Fisher IG % 0.4 % Normal 0.0-0.5 [facility] Comment on above: Performed By: #### L IPA, CMP, CRP, NAT #### [facility] [address] [place] [address] Dr. Keturah Fisher LYMPH # 2.1 103/ul Normal 1.2-3.8 [facility] Comment on above: Performed By: #### L IPA, CMP, CRP, NAT #### [facility] [address] [place] [address] Dr. Keturah Fisher Lymphocytes/100 WBC (Bld) 21.2 % Normal 20.5-60.0 [facility] Comment on above: Performed By: #### L IPA, CMP, CRP, NAT #### [facility] [address] [place] [address] Dr. Keturah Fisehr MANUAL DIFF REQ NO Normal [facility] Comment on above: Performed By: #### L IPA, CMP, CRP, NAT #### [facility] [address] [place] [address] Dr. Keturah Fisher MCH (RBC) [Entitic mass] 33.0 pg Normal 26.7-34.0 [facility] Comment on above: Performed By: #### L IPA, CMP, CRP, NAT #### [facility] [address] [place] [address] Dr. Keturah Fisher MCHC (RBC) [Mass/Vol] 37.0 g/dL Critically high 29.9-35.2 [facility] Comment on above: Performed By: #### L IPA, CMP, CRP, NAT #### [facility] [address] [place] [address] Dr. Keturah Fisher MCV (RBC) [Entitic vol] 89.0 fL Normal 81.0-99.0 [facility] Comment on above: Performed By: #### L IPA, CMP, CRP, NAT #### [facility] [address] [place] [address] Dr. Keturah Fisher MONO # 1.0 103/ul Critically high 0.3-0.8 [facility] Comment on above: Performed By: #### L IPA, CMP, CRP, NAT #### [facility] [address] [place] [address] Dr. Keturah Fisher Monocytes/100 WBC (Bld) 10.3 % Normal 1.7-12.0 [facility] Comment on above: Performed By: #### L IPA, CMP, CRP, NAT #### [facility] [address] [place] [address] Dr. Keturah Fisher NEUT # 6.5 103/ul Normal 1.4-6.5 [facility] Comment on above: Performed By: #### L IPA, CMP, CRP, NAT #### [facility] [address] [place] [address] Dr. Keturah Fisher Neutrophils/100 WBC (Bld) 66.8 % Normal 43.0-75.0 [facility] Comment on above: Performed By: #### L IPA, CMP, CRP, NAT #### [facility] [address] [place] [address] Dr. Keturah Fisher Platelet mean volume (Bld) [Entitic vol] 9.2 fL Critically low 9.5-13.5 [facility] Comment on above: Performed By: #### L IPA, CMP, CRP, NAT #### [facility] [address] [place] [address] Dr. Keturah Fisher PLT 229 103/ul Normal 150-450 [facility] Comment on above: Performed By: #### L IPA, CMP, CRP, NAT #### [facility] [address] [address] [address] Keturah Fisher RBC 4.46 106/ul Normal 4.20-5.40 [facility] Comment on above: Performed By: #### L IPA, CMP, CRP, NAT #### [facility] [address] [address] [address] Keturah Fisher WBC 9.7 103/ul Normal 4.0-11.0 [facility] Comment on above: Performed By: #### L IPA, CMP, CRP, NAT #### [facility] [address] [address] [address] Keturah Fisher LACTATE/LACTIC ACIDon 2022 Lactate [Moles/Vol] 0.5 mmol/L Normal 0.4-1.9 [facility] Comment on above: Performed By: #### L IPA, CMP, CRP, NAT #### [facility] [address] [address] [address] Keturah Fisher LIPASEon 03-29-2022 Lipase [Catalytic activity/Vol] 308.0 U/L Normal 73.0-393.0 [facility] Comment on above: Performed By: #### L IVER, LIPA, BMP, NAT ####[facility] [address] [address]DrGopal Fisher LIVER PROFILEon 03-29-2022 Albumin [Mass/Vol] 3.3 g/dL Critically low 3.4-5.0 [facility] Comment on above: Performed By: #### L IVER, LIPA, BMP, NAT ####[facility] [address] [place] [address]DrGopal Fisher Albumin/Globulin [Mass ratio] 0.8 {ratio} Normal [facility] Comment on above: Performed By: #### L IVER, LIPA, BMP, NAT ####[facility] [address] [place] [address]DrGopal Fisher ALP [Catalytic activity/Vol] 182 U/L Critically high 46-116 [facility] Comment on above: Performed By: #### L IVER, LIPA, BMP, NAT ####[facility] [address] [place] [address]Dr. Keturah Fisher ALT [Catalytic activity/Vol] 16 U/L Normal 14-59 [facility] Comment on above: Performed By: #### L IVER, LIPA, BMP, NAT ####[facility] [address] [place] [address]Dr. Keturah Fisher AST [Catalytic activity/Vol] 26 U/L Normal 15-37 [facility] Comment on above: Performed By: #### L IVER, LIPA, BMP, NAT ####[facility] [address] [place], [place] [address]Dr. Keturah Fisher BILI, CONJUGATED 0.0 mg/dL Normal 0.0-0.2 [facility] Comment on above: Performed By: #### L IVER, LIPA, BMP, NAT ####[facility] [address] [place], [place] [address]Dr. Keturah Fisher Bilirubin [Mass/Vol] 0.3 mg/dL Normal 0.2-1.0 [facility] Comment on above: Performed By: #### L IVER, LIPA, BMP, NAT ####[facility] [address] [place], [place] [address]Dr. Keturah Fisher Globulin (S) [Mass/Vol] 3.9 g/dL Normal [facility] Comment on above: Performed By: #### L IVER, LIPA, BMP, NAT ####[facility] [address] [place], [place] [address]Dr. Keturah Fisher Protein [Mass/Vol] 7.2 g/dL Normal 6.4-8.2 [facility] Comment on above: Performed By: #### L IVER, LIPA, BMP, NAT ####[facility] [address] [place], [place] [address]Dr. Keturah Fisher PROF CHEM 8 (BAS METB)on Anion gap [Moles/Vol] 14.6 mmol/L Normal [facility] Comment on above: Performed By: #### L IVHERMINIA, LIPA, BMP, NAT ####[facility] [address] [place] [address]Dr. Keturah Fisher Calcium [Mass/Vol] 10.1 mg/dL Normal 8.5-10.1 [facility] Comment on above: Performed By: #### L IVER, LIPA, BMP, NAT ####[facility] [address] [place] [address]Dr. Keturah Fisher Chloride [Moles/Vol] 104 mmol/L Normal 98-107 [facility] Comment on above: Performed By: #### L IVER, LIPA, BMP, NAT ####[facility] [address] [place], [place] [address]Dr. Keturah Fisher CO2 [Moles/Vol] 24.8 mmol/L Normal 21.0-32.0 [facility] [place] Comment on above: Performed By: #### L IVER, LIPA, BMP, NAT ####[facility] [address] [place], [place] [address]Dr. Keturah Fisher Creatinine [Mass/Vol] 0.61 mg/dL Normal 0.55-1.02 [facility] Comment on above: Performed By: #### L IVER, LIPA, BMP, NAT ####[facility] [address] [place], [place] [address]Dr. Keturah Fisher EGFR-AF MONGOLIAN >60 Normal >=60 [facility] [place] Comment on above: Performed By: #### L IVER, LIPA, BMP, NAT ####[facility] [address] [place], [place] [address]Dr. Keturah Fisher EGFR-NON AF MONGOLIAN >60 Normal >=60 [facility] Comment on above: Performed By: #### L IVER, LIPA, BMP, NAT ####[facility] [address] [place], [place] [address]Dr. Keturah Fisher Glucose [Mass/Vol] 98 mg/dL Normal 74-106 [facility] Comment on above: Performed By: #### L IVER, LIPA, BMP, NAT ####[facility] [address] [place], [place] [address]Ym. Keturah Fisher Potassium [Moles/Vol] 4.4 mmol/L Normal 3.5-5.1 [facility] Comment on above: Performed By: #### L IVER, LIPA, BMP, NAT ####[facility] [address] [place], [place] [address]Cb. Keturah Fisher Sodium [Moles/Vol] 139 mmol/L Normal 136-145 [facility] Comment on above: Performed By: #### L IVER, LIPA, BMP, NAT ####[facility] [address] [place] [id number]. Keturah Fisher Urea nitrogen [Mass/Vol] 7.0 mg/dL Normal 7.0-18.0 [facility] Comment on above: Performed By: #### L IVER, LIPA, BMP, NAT ####[facility] [address] [place] [address]Dr. Keturah Fisher Urea nitrogen/Creatinine [Mass ratio] 11.5 mg/mg Normal [facility] Comment on above: Performed By: #### L IVER, LIPA, BMP, NAT ####[facility] [address] [place] [address]Dr. Keturah Fisher Albumin [Mass/volume] in Ser um or PlasmaOrdered By: Agustin Llanes on 03-22-2022 Albumin [Mass/Vol] 4.1 g/dL 3.2-5.5 [facility] Automated erythrocytes count in urine sediment (number/area)Ordered By: Agustin Llanes on 03-22-2022 RBC Auto (Urine sed) [#/Area] 3-4 [HPF] 0-4 [place] Automated leukocytes count i n urine sediment (number/area)Ordered By: Agustin Llanes on 03-22-2022 WBC Auto (Urine sed) [#/Area] 10-19 [HPF] 0-4 [facility] Basophils Auto (Bld) [#/Vol] Ordered By: Agustin Llanes on 03-22-2022 Basophils (Bld) [#/Vol] 0.1 10*3/uL 0.0-0.2 [facility] Basophils/100 WBC Auto (Bld) Ordered By: Agustin Llanes on 03-22-2022 Basophils/100 WBC (Bld) 0.9 % . [facility] Bilirubin Test strip Ql (U)O rdered By: Agustin Llanes on 03-22-2022 Bilirubin Ql (U) Negative Negative [facility] Color Auto (U)Ordered By: Vita Llanes on 03-22-2022 Color (U) Yellow Yellow [place] Creatinine and Glomerular fi ltration rate.predicted panel (S/P/Bld)Ordered By: Agustin Llanes on 03-22-2022 Creatinine [Mass/Vol] 0.74 mg/dL 0.44-1.03 [facility] Direct bilirubin measurement Ordered By: Agustin Llanes on 03-22-2022 Bilirubin.direct [Mass/Vol] 0.3 mg/dL 0.0-0.4 [facility] Eosinophils Auto (Bld) [#/Vo l]Ordered By: Agustin Llanes on 03-22-2022 Eosinophils (Bld) [#/Vol] 0.1 10*3/uL 0.0-0.45 [facility] Eosinophils/100 WBC Auto (Bl d)Ordered By: Agustin Llanes on 03-22-2022 Eosinophils/100 WBC (Bld) 0.7 % . [facility] Erythrocyte distribution wid th Auto (RBC) [Ratio]Ordered By: Agustin Llanes on 03-22-2022 Erythrocyte distribution width (RBC) [Ratio] 13.9 % 11.9-15.3 [facility] Estimated glomerular filtrat ion rate (GFR) non- AmericanOrdered By: Agustin Llanes on 03-22-2022 GFR/1.73 sq M.predicted among non-blacks MDRD (S/P/Bld) [Vol rate/Area] > 60 mL/Min [facility] Globulin Calc (S) [Mass/Vol] Ordered By: Agustin Llanes on 03-22-2022 Globulin (S) [Mass/Vol] 3.1 g/dL [facility] HCG ( test) IA.rapi d Ql (U)Ordered By: Agustin Llanes on 03-22-2022 HCG ( test) Ql (U) Negative [facility] Hematocrit Auto (Bld) [Volum e fraction]Ordered By: Agustin Llanes on 03-22-2022 Hematocrit (Bld) [Volume fraction] 45.7 % 34.0-46.4 [facility] Hemoglobin [Mass/volume] in BloodOrdered By: Agustin Llanes on 03-22-2022 Hemoglobin (Bld) [Mass/Vol] 15.2 g/dL 11.8-15.4 [facility] Ketones Auto test strip (U) [Mass/Vol]Ordered By: Agustin Llanes on 03-22-2022 Ketones (U) [Mass/Vol] Negative Negative [facility] - Chemistry and C hemistry - challengeOrdered By: Agustin Llanes on 03-22-2022 Lipase [Catalytic activity/Vol] 122.0 U/L 22-51 [facility] - UrinalysisOrder ed By: Agustin Llanes on 03-22-2022 Hyaline casts LM Ql (Urine sed) 0-8 [LPF] 0-8 [facility] Leukocytes [#/volume] correc aurelia for nucleated erythrocytes in Blood by Automated counOrdered By: Agustin Llanes on 03-22-2022 WBC corrected for nucl RBC Auto (Bld) [#/Vol] 12.4 10*3/uL 3.8-11.6 [place] Lymphocytes Auto (Bld) [#/Vo l]Ordered By: Agustin Llanes on 03-22-2022 Lymphocytes (Bld) [#/Vol] 2.2 10*3/uL 1.00-4.8 [facility] Lymphocytes/100 WBC Auto (Bl d)Ordered By: Agustin Llanes on 03-22-2022 Lymphocytes/100 WBC (Bld) 18.0 % . [facility] MCH Auto (RBC) [Entitic mass ]Ordered By: Agustin Llanes on 03-22-2022 MCH (RBC) [Entitic mass] 32.5 pg 24.7-34.3 [facility] MCHC Auto (RBC) [Mass/Vol]Or dered By: Agustin Llanes on 03-22-2022 MCHC (RBC) [Mass/Vol] 33.2 g/dL 32.0-35.0 [facility] MCV Auto (RBC) [Entitic vol] Ordered By: Agustin Llanes on 03-22-2022 MCV (RBC) [Entitic vol] 98.0 fL 80-100 [place] Monocyte distribution width [Entitic volume] in Blood by AutomatedOrdered By: Agustin Llanes on 03-22-2022 Monocyte distribution width Auto (Bld) [Entitic vol] 18.78 % 0.00-20.00 [place] Monocytes Auto (Bld) [#/Vol] Ordered By: Agustin Llanes on 03-22-2022 Monocytes (Bld) [#/Vol] 1.0 10*3/uL 0.0-0.8 [place] Monocytes/100 WBC Auto (Bld) Ordered By: Agustin Llanes on 03-22-2022 Monocytes/100 WBC (Bld) 8.0 % . [facility] Neutrophils Auto (Bld) [#/Vo l]Ordered By: Agustin Llanes on 03-22-2022 Neutrophils (Bld) [#/Vol] 9.0 10*3/uL 1.8-7.7 [facility] Neutrophils/100 WBC Auto (Bl d)Ordered By: Agustin Llanes on 03-22-2022 Neutrophils/100 WBC (Bld) 72.4 % . [facility] Nitrite Test strip Ql (U)Ord ered By: Agustin Llanes on 03-22-2022 Nitrite Ql (U) Positive Negative [facility] No Panel InformationOrdered By: Agustin Llanes on 03-22-2022 Estimated GFR () > 60 mL/Min [place] Comment on above: GFR estimated refere nce range: According to KDOQI guidelines, <60 ml/min/1.73m2 is sufficient to diagnose a patient with chronic kidney disease. Pharmacy Creatinine Clearance (Chem 70.34 [place] Nucleated erythrocytes [Pres ence] in Blood by Automated countOrdered By: Agustin Llanes on 03-22-2022 Nucleated RBC Auto Ql (Bld) 0.0 /100{WBC} 0-0.5 [facility] Platelet mean volume Auto (B ld) [Entitic vol]Ordered By: Agustin Llanes on 03-22-2022 Platelet mean volume (Bld) [Entitic vol] 8.0 fL 6.3-10.7 [facility] Platelets Auto (Bld) [#/Vol] Ordered By: Agustin Llanes on 03-22-2022 Platelets (Bld) [#/Vol] 266 10*3/uL 150-450 [facility] Protein Auto test strip (U) [Mass/Vol]Ordered By: Agustin Llanes on 03-22-2022 Protein (U) [Mass/Vol] Negative Negative [facility] Protein [Mass/volume] in Ser um or PlasmaOrdered By: Agustin Llanes on 03-22-2022 Protein [Mass/Vol] 7.2 g/dL 6.1-7.9 [facility] RBC Auto (Bld) [#/Vol]Ordere d By: Agustin Llanes on 03-22-2022 RBC (Bld) [#/Vol] 4.67 10*6/uL 3.60-5.00 [facility] Serum or plasma alanine hughes otransferase measurement without P-5'-P (enzymatic activiOrdered By: Agustin Llanes on 03-22-2022 ALT No additional P-5'-P [Catalytic activity/Vol] 19 U/L 10-60 [place] Serum or plasma albumin/glob ulin mass ratioOrdered By: Agustin Llanes on 03-22-2022 Albumin/Globulin [Mass ratio] 1.3 {ratio} [facility] Serum or plasma alkaline jaqueline sphatase measurement (enzymatic activity/volume)Ordered By: Agustin Llanes on 03-22-2022 ALP [Catalytic activity/Vol] 156 U/L 32-92 [place] Serum or plasma anion gap de terminationOrdered By: Agustin Llanes on 03-22-2022 Anion gap [Moles/Vol] 12.6 mmol/L 6.0-15.0 [facility] Serum or plasma aspartate am inotransferase measurement (enzymatic activity/volume)Ordered By: Agustin Llanes on 03-22-2022 AST [Catalytic activity/Vol] 29 U/L 10-42 [place] Serum or plasma calcium priscilla urement (mass/volume)Ordered By: Agustin Llanes on 03-22-2022 Calcium [Mass/Vol] 9.9 mg/dL 8.2-10.2 [facility] Serum or plasma chloride daron surement (moles/volume)Ordered By: Agustin Llanes on 03-22-2022 Chloride [Moles/Vol] 103 mmol/L 95-114 [facility] Serum or plasma glucose priscilla urement (mass/volume)Ordered By: Agustin Llanes on 03-22-2022 Glucose [Mass/Vol] 106 mg/dL 70-100 [facility] Comment on above: ADA recommended refe rence rangeRandom Glucose Reference Range is dependent on time and content of last meal. Glucose of more than 200 mg/dL in a nonstressed, ambulatory subject supports the diagnosis of Diabetes Mellitus. Serum or plasma non-glucuron idated bilirubin measurement (mass/volume)Ordered By: Agustin Llanes on 03-22-2022 Bilirubin.indirect [Mass/Vol] 0.2 mg/dL [facility] Serum or plasma potassium me asurement (moles/volume)Ordered By: Agustin Llanes on 03-22-2022 Potassium [Moles/Vol] 4.5 mmol/L 3.5-5.1 [facility] Serum or plasma sodium measu rement (moles/volume)Ordered By: Agustin Llanes on 03-22-2022 Sodium [Moles/Vol] 138 mmol/L 136-146 [facility] Serum or plasma total biliru bin measurement (mass/volume)Ordered By: Agustin Llanes on 03-22-2022 Bilirubin [Mass/Vol] 0.5 mg/dL 0.3-1.2 [facility] Serum or plasma total carbon dioxide measurement (moles/volume)Ordered By: Agustin Llanes on 03-22-2022 CO2 [Moles/Vol] 26.9 mmol/L 22.0-30.0 [facility] Serum or plasma urea nitroge n measurement (mass/volume)Ordered By: Agustin Llanes on 03-22-2022 Urea nitrogen [Mass/Vol] 8 mg/dL 9-23 [facility] Specific gravity Auto test s trip (U) [Rel density]Ordered By: Agustin Llanes on 03-22-2022 Specific gravity (U) [Rel density] 1.011 1.001-1.03 0 [place] Squamous epithelial cells de tection in urine sediment by light microscopyOrdered By: Agustin Llanes on 03-22-2022 Epithelial cells.squamous LM Ql (Urine sed) 1-2 [HPF] 0-2 [place] Urine bacteria detection by automated methodOrdered By: Agustin Llanes on 03-22-2022 Bacteria Auto Ql (U) 1+ None Seen [facility] Urine clarity by refractomet ry automatedOrdered By: Agustin Llanes on 03-22-2022 Clarity Refractometry automated (U) Clear Clear [facility] Urine glucose measurement by automated test strip (mass/volume)Ordered By: Agustin Llanes on 03-22-2022 Glucose Auto test strip (U) [Mass/Vol] Normal mg/dL Normal [facility] Urine hemoglobin detection b y automated test stripOrdered By: Agustin Llanes on 03-22-2022 Hemoglobin Auto test strip Ql (U) Negative Negative [facility] Urine leukocyte esterase det ection by automated test stripOrdered By: Agustin Llanes on 03-22-2022 Leukocyte esterase Auto test strip Ql (U) 2+ Negative [facility] Urobilinogen Auto test strip (U) [Mass/Vol]Ordered By: Agustin Llanes on 03-22-2022 Urobilinogen (U) [Mass/Vol] Normal mg/dL Normal [facility] WBC Auto (Bld) [#/Vol]Ordere d By: Agustin Llanes on 03-22-2022 WBC (Bld) [#/Vol] 12.4 10*3/uL 3.8-11.6 [facility] pH Auto test strip (U)Ordere d By: Agustin Llanes on 03-22-2022 pH (U) 5.5 [pH] 5.0-9.0 [place] AMYLASEon 03-19-2022 Amylase [Catalytic activity/Vol] 297 U/L Critically high 25-115 [facility] Comment on above: Performed By: #### L IPA, CMP, CRP, NAT #### [facility] [address] [address] [address] Keturah Fisher CBC AUTO DIFFon 03-19-2022 BASO # 0.1 103/ul Normal 0.0-0.1 [facility] Comment on above: Performed By: #### L IPA, CMP, CRP, NAT #### [facility] [address] [address] [address] Keturah Fisher Basophils/100 WBC (Bld) 0.6 % Normal 0.2-2.0 [facility] Comment on above: Performed By: #### L IPA, CMP, CRP, NAT #### [facility] [address] [place] [address] Dr. Keturah Fisher EO # 0.1 103/ul Normal 0.0-0.7 [facility] Comment on above: Performed By: #### L IPA, CMP, CRP, NAT #### [facility] [address] [place] [address] Dr. Keturah Fisher Eosinophils/100 WBC (Bld) 0.5 % Critically low 0.9-7.0 [facility] Comment on above: Performed By: #### L IPA, CMP, CRP, NAT #### [facility] [address] [place] [address] Dr. Keturah Fisher Erythrocyte distribution width (RBC) [Ratio] 13.4 % Normal 11.0-15.0 [facility] Comment on above: Performed By: #### L IPA, CMP, CRP, NAT #### [facility] [address] [place] [address] Dr. Keturah Fisher Hemoglobin (Bld) [Mass/Vol] 15.7 g/dL Normal 12.0-16.0 [facility] Comment on above: Performed By: #### L IPA, CMP, CRP, NAT #### [facility] [address] [place] [address] Dr. Keturah Fisher IG # 0.06 10e3/ul Critically high 0.00-0.03 [facility] Comment on above: Performed By: #### L IPA, CMP, CRP, NAT #### [facility] [address] [place] [address] Dr. Keturah Fisher IG % 0.4 % Normal 0.0-0.5 [facility] Comment on above: Performed By: #### L IPA, CMP, CRP, NAT #### [facility] [address] [place] [address] Dr. Keturah Fisher LYMPH # 2.6 103/ul Normal 1.2-3.8 [facility] Comment on above: Performed By: #### L IPA, CMP, CRP, NAT #### [facility] [address] [address] [address] Keturah Fisher Lymphocytes/100 WBC (Bld) 18.1 % Critically low 20.5-60.0 [facility] Comment on above: Performed By: #### L IPA, CMP, CRP, NAT #### [facility] [address] [address] [address] Keturah Fisher MANUAL DIFF REQ NO Normal [facility] Comment on above: Performed By: #### L IPA, CMP, CRP, NAT #### [facility] [address] [place] [address] Dr. Keturah Fisher MCH (RBC) [Entitic mass] 32.4 pg Normal 26.7-34.0 [facility] Comment on above: Performed By: #### L IPA, CMP, CRP, NAT #### [facility] [address] [place] [address] Dr. Keturah Fisher MCHC (RBC) [Mass/Vol] 32.5 g/dL Normal 29.9-35.2 [facility] Comment on above: Performed By: #### L IPA, CMP, CRP, NAT #### [facility] [address] [address] [address] Keturah Fisher MCV (RBC) [Entitic vol] 99.8 fL Critically high 81.0-99.0 [facility] Comment on above: Performed By: #### L IPA, CMP, CRP, NAT #### [facility] [address] [address] [address] Keturah Fisher MONO # 0.9 103/ul Critically high 0.3-0.8 [facility] Comment on above: Performed By: #### L IPA, CMP, CRP, NAT #### [facility] [address] [address] [address] Keturah Fisher Monocytes/100 WBC (Bld) 5.9 % Normal 1.7-12.0 [facility] Comment on above: Performed By: #### L IPA, CMP, CRP, NAT #### [facility] [address] [place] [address] Dr. Keturah Fisher NEUT # 10.8 103/ul Critically high 1.4-6.5 [facility] [place] Comment on above: Performed By: #### L IPA, CMP, CRP, NAT #### [facility] [address] [place] [address] Dr. Keturah Fisher Neutrophils/100 WBC (Bld) 74.5 % Normal 43.0-75.0 [facility] Comment on above: Performed By: #### L IPA, CMP, CRP, NAT #### [facility] [address] [place] [address] Dr. Keturah Fisher Platelet mean volume (Bld) [Entitic vol] 9.7 fL Normal 9.5-13.5 [facility] Comment on above: Performed By: #### L IPA, CMP, CRP, NAT #### [facility] [address] [place] [address] Dr. Keturah Fisher PLT 279 103/ul Normal 150-450 [facility] Comment on above: Performed By: #### L IPA, CMP, CRP, NAT #### [facility] [address] [place] [address] Dr. Keturah Fisher RBC 4.84 106/ul Normal 4.20-5.40 [facility] Comment on above: Performed By: #### L IPA, CMP, CRP, NAT #### [facility] [address] [place] [address] Dr. Keturah Fisher WBC 14.5 103/ul Critically high 4.0-11.0 [facility] Comment on above: Performed By: #### L IPA, CMP, CRP, NAT #### [facility] [address] [place] [address] ABD/PELVIS WO CONon [...] AGUSTIN HIGHTOWER Date: 2022-03-19 19:10 Normal [facility] LIPASEon 03-19-2022 Lipase [Catalytic activity/Vol] 1573.0 U/L Critically high 73.0-393.0 [facility] Comment on above: Performed By: #### L IPA, CMP, CRP, NAT #### [facility] [address] [address] [address] Keturah Fisher PROF 14(COMP METB)on 023 Albumin [Mass/Vol] 4.3 g/dL Normal 3.4-5.0 [facility] Comment on above: Performed By: #### L IPA, CMP, CRP, NAT #### [facility] [address] [place] [address] Dr. Keturah Fisher Albumin/Globulin [Mass ratio] 1.1 {ratio} Normal [facility] Comment on above: Performed By: #### L IPA, CMP, CRP, NAT #### [facility] [address] [place] [address] Dr. Keturah Fisher ALP [Catalytic activity/Vol] 222 U/L Critically high 46-116 [facility] Comment on above: Performed By: #### L IPA, CMP, CRP, NAT #### [facility] [address] [place] [address] Dr. Keturah Fisher ALT [Catalytic activity/Vol] 18 U/L Normal 14-59 [facility] Comment on above: Performed By: #### L IPA, CMP, CRP, NAT #### [facility] [address] [place] [address] Dr. Keturah Fisher Anion gap [Moles/Vol] 10.7 mmol/L Normal [facility] Comment on above: Performed By: #### L IPA, CMP, CRP, NAT #### [facility] [address] [place] [address] Dr. Keturah Fisher AST [Catalytic activity/Vol] 19 U/L Normal 15-37 [facility] Comment on above: Performed By: #### L IPA, CMP, CRP, NAT #### [facility] [address] [place] [address] Dr. Keturah Fisher Bilirubin [Mass/Vol] 0.2 mg/dL Normal 0.2-1.0 [facility] Comment on above: Performed By: #### L IPA, CMP, CRP, NAT #### [facility] [address] [place] [address] Dr. Keturah Fisher Calcium [Mass/Vol] 10.2 mg/dL Critically high 8.5-10.1 [facility] Comment on above: Performed By: #### L IPA, CMP, CRP, NAT #### [facility] [address] [place] [address] Dr. Keturah Fisher Chloride [Moles/Vol] 101 mmol/L Normal 98-107 [facility] Comment on above: Performed By: #### L IPA, CMP, CRP, NAT #### [facility] [address] [address] [address] Keturah Fisher CO2 [Moles/Vol] 29.1 mmol/L Normal 21.0-32.0 [facility] Comment on above: Performed By: #### L IPA, CMP, CRP, NAT #### [facility] [address] [address] [address] Keturah Fisher Creatinine [Mass/Vol] 0.73 mg/dL Normal 0.55-1.02 [facility] Comment on above: Performed By: #### L IPA, CMP, CRP, NAT #### [facility] [address] [place] [address] Dr. Keturah Fisher EGFR-AF MONGOLIAN >60 Normal >=60 [facility] Comment on above: Performed By: #### L IPA, CMP, CRP, NAT #### [facility] [address] [place] [address] Dr. Keturah Fisher EGFR-NON AF MONGOLIAN >60 Normal >=60 [facility] Comment on above: Performed By: #### L IPA, CMP, CRP, NAT #### [facility] [address] [place] [address] Dr. Keturah Fisher Globulin (S) [Mass/Vol] 4.0 g/dL Normal [facility] Comment on above: Performed By: #### L IPA, CMP, CRP, NAT #### [facility] [address] [place] [address] Dr. Keturah Fisher Glucose [Mass/Vol] 92 mg/dL Normal 74-106 [facility] Comment on above: Performed By: #### L IPA, CMP, CRP, NAT #### [facility] [address] [place] [address] Dr. Keturah Fisher Potassium [Moles/Vol] 3.8 mmol/L Normal 3.5-5.1 [facility] Comment on above: Performed By: #### L IPA, CMP, CRP, NAT #### [facility] [address] [place] [address] Dr. Keturah Fisher Protein [Mass/Vol] 8.3 g/dL Critically high 6.4-8.2 T [facility] Comment on above: Performed By: #### L IPA, CMP, CRP, NAT #### [facility] [address] [address] [address] Keturah Fisher Sodium [Moles/Vol] 137 mmol/L Normal 136-145 [facility] Comment on above: Performed By: #### L IPA, CMP, CRP, NAT #### [facility] [address] [address] [address] Keturah Fisher Urea nitrogen [Mass/Vol] 10.0 mg/dL Normal 7.0-18.0 [facility] Comment on above: Performed By: #### L IPA, CMP, CRP, NAT #### [facility] [address] [address] [address] Keturah Fisher Urea nitrogen/Creatinine [Mass ratio] 13.7 mg/mg Normal [facility] Comment on above: Performed By: #### L IPA, CMP, CRP, NAT #### [facility] [address] [address] [address] Keturah Fisher PROTIMEon 03-19-2022 INR Coag (PPP) [Relative time] {INR} Normal [facility] Comment on above: Performed By: #### P TT, PT ####[facility] [address] [address]DrGopal Fisher INR GUIDELINES SEE BELOW Normal [facility] Comment on above: Result Comment: KARLY RED INR: 2.0 - 3.0 CONDITIONS NOT LISTED BELOW 2.5 - 3.5 FOR PROSTHETIC HEART VALVE REPLACEMENT 2.5 - 3.5 RECURRENT THROMBOSIS Performed By: #### P TT, PT ####[facility] [address] [place] [address]Dr. Keturah Fisher PT Coag (PPP) [Time] 9.4 s Normal 9.0-11.6 [facility] Comment on above: Performed By: #### P TT, PT ####[facility] [address] [place] [address]Dr. Keturah Fisher PTTon 03-19-2022 aPTT Coag (Bld) [Time] 26.1 s Normal 22.3-36.2 Th e [facility] Comment on above: Performed By: #### P TT, PT ####[facility] [address] [place], [place] [address]Np. Keturah Fisher TROPONIN, HIGH SENSITIVITYon 03-19-2022 HSTROP 4.0 pg/mL Normal 4.0-51.3 The [facility] Comment on above: Result Comment: CUT- OFF POINTS HAVE BEEN ESTABLISHED BASED ON THE FOURTH UNIVERSAL DEFINITIONS OF MYOCARDIAL INFARCTION. THE UPPER REFERENCE LIMIT (URL) OF TROPONIN, DEFINED THE 99TH PERCENTILE OF cTnI DISTRIBUTION IN A REFERENCE POPULATION, HAS BEEN CONFIRMED THE DECISION THRESHOLD FOR PA DIAGNOSIS. Performed By: #### L IPA, CMP, CRP, NAT #### [facility] [address], [place] [address] Dr. Keturah Fisher UPPER EUSon 01-28-2022 The [facility] Gastroenterology Patient Name: Chioma Rainey Procedure Date: 01/28/2022 8:55 AM Date of : 1970 Admit Type: Outpatient Age: 51 Room: EUS Proc Room 01 Gender: Female Note Status: Finalized Attending MD: Sabrina Dee MD, MPH, [id number] Procedure: Upper EUS Indications: Chronic pancreatitis, Celiac plexus block for pain secondary to chronic pancreatitis Providers: Sabrina Dee MD, MPH (Doctor), Akilah Gonzales RN (Nurse), Lara Yost RN (Nurse), Montse Garcia, Swatch Paster (Swatch Paster), LOW Velazquez (Anesthesia Staff), Neri Goins MD [...] verified by the physician, the nurse, the telephone worker and the sound recording technician in the procedure room. Mental Status [...] si (more content not included)... LAB, [facility] Radiology Study observation (narrative) [facility] BONE DENSITY AXIAL (HIP, PEL VIS, [...] interpreted this study is a Certified Clinical Scanning Supervisor by the International Society of Clinical Densitometry Maulik Reed M.D., CCD. OLOGY EXAM: BONE DENSITY A XIAL (HIP, PELVIS, SPINE) 01/27/2022 15:34 PM TECHNIQUE: DXA scanning using a [employer] bone densitometer at the [facility] was performed on 01/27/2022 15:34 PM [...] 15:34 PM TECHNIQUE: DXA scanning using a [employer] bone densitometer at the [facility] was performed on 01/27/2022 15:34 PM [...] interpreted this study is a Certified Clinical Scanning Supervisor by the International Society of Clinical Densitometry Maulik Reed M.D., CCD. [facility] Radiology Study observation (narrative) [facility] BONE DENSITY AXIAL (HIP, PEL VIS, SPINE)Ordered By: Maulik Reed on 01-27-2022 [facility] Work Phone: CBC AUTO DIFFon 01-15-2022 BASO # 0.1 103/ul Normal 0.0-0.1 The [facility] Comment on above: Performed By: #### C BC ####[facility] [address] [place], [place] [address]Dr. Keturah Fisher Basophils/100 WBC (Bld) 0.9 % Normal 0.2-2.0 [facility] Comment on above: Performed By: #### C BC ####[facility] [address] [place], [place] [address]Dr. Keturah Fisher EO # 0.2 103/ul Normal 0.0-0.7 The [facility] Comment on above: Performed By: #### C BC ####[facility] [address] [place], [place] [address]Dr. Keturah Fisher Eosinophils/100 WBC (Bld) 2.8 % Normal 0.9-7.0 [facility] Comment on above: Performed By: #### C BC ####[facility] [address] [place], [place] [address]Dr. Keturah Fisher Erythrocyte distribution width (RBC) [Ratio] 12.9 % Normal 11.0-15.0 The [facility] Comment on above: Performed By: #### C BC ####[facility] [address] [place], [place] [address]Dr. Keturah Fisher Hematocrit (Bld) [Volume fraction] 41.7 % Normal 36.0-48.0 The [facility] Comment on above: Performed By: #### C BC ####[facility] [address] [place] [id number]. Keturah Fisher Hemoglobin (Bld) [Mass/Vol] 14.0 g/dL Normal 12.0-16.0 [facility] Comment on above: Performed By: #### C BC ####[facility] [address] [place] [id number]. Keturah Fisher IG # 0.01 10e3/ul Normal 0.00-0.03 [facility] Comment on above: Performed By: #### C BC ####[facility] [address] [place] [id number]. Keturah Fisher IG % 0.1 % Normal 0.0-0.5 [facility] Comment on above: Performed By: #### C BC ####[facility] [address] [address]Dr. Keturah Fisher LYMPH # 2.4 103/ul Normal 1.2-3.8 [facility] Comment on above: Performed By: #### C BC ####[facility] [address] [place] [id number]. Keturah Fisher Lymphocytes/100 WBC (Bld) 32.0 % Normal 20.5-60.0 [facility] Comment on above: Performed By: #### C BC ####[facility] [address] [place] [id number]. Keturah Fisher MANUAL DIFF REQ NO Normal [facility] Comment on above: Performed By: #### C BC ####[facility] [address] [place] [id number]. Keturah Fisher MCH (RBC) [Entitic mass] 32.6 pg Normal 26.7-34.0 [facility] Comment on above: Performed By: #### C BC ####[facility] [address] [place] [id number]. Keturah Fisher MCHC (RBC) [Mass/Vol] 33.6 g/dL Normal 29.9-35.2 [facility] Comment on above: Performed By: #### C BC ####[facility] [address] [place] [id number]. Keturah Fisher MCV (RBC) [Entitic vol] 97.0 fL Normal 81.0-99.0 [facility] Comment on above: Performed By: #### C BC ####[facility] [address] [place] [id number]. Keturah Fisher MONO # 0.7 103/ul Normal 0.3-0.8 [facility] Comment on above: Performed By: #### C BC ####[facility] [address] [place], [place] [address]Dr. Keturah Fisher Monocytes/100 WBC (Bld) 9.5 % Normal 1.7-12.0 [facility] Comment on above: Performed By: #### C BC ####[facility] [address] [place], [place] [address]Dr. Keturah Fisher NEUT # 4.1 103/ul Normal 1.4-6.5 [facility] Comment on above: Performed By: #### C BC ####[facility] [address] [place], [place] [address]Dr. Keturah Fisher Neutrophils/100 WBC (Bld) 54.7 % Normal 43.0-75.0 [facility] Comment on above: Performed By: #### C BC ####[facility] [address] [place], [place] [address]Dr. Keturah Fisher Platelet mean volume (Bld) [Entitic vol] 9.6 fL Normal 9.5-13.5 [facility] Comment on above: Performed By: #### C BC ####[facility] [address] [place], [place] [address]Dr. Keturah Fisher PLT 235 103/ul Normal 150-450 [facility] Comment on above: Performed By: #### C BC ####[facility] [address] [place], [place] [address]Dr. Keturah Fisher RBC 4.30 106/ul Normal 4.20-5.40 [facility] Comment on above: Performed By: #### C BC ####[facility] [address] [place] [address]Dr. Keturah Fisher WBC 7.6 103/ul Normal 4.0-11.0 [facility] Comment on above: Performed By: #### C BC ####[facility] [address] [place] [address]Dr. Keturah Fisher ER URINE PROFILEon 2 Bilirubin Ql (U) Negative Normal NEGATIVE The [facility] Comment on above: Performed By: #### L IPA, CMP, CRP, NAT #### [facility] [address] [address] [address] Keturah Fisher Clarity (U) CLEAR Normal CLEAR [facility] Comment on above: Performed By: #### L IPA, CMP, CRP, NAT #### [facility] [address] [address] [address] Keturah Fisher Color (U) YELLOW Normal YELLOW [facility] Comment on above: Performed By: #### L IPA, CMP, CRP, NAT #### [facility] [address] [address] [address] Keturah Fisher ERUMATTY A micrscopic examina tion will be performed if indicated. Normal [facility] Comment on above: Performed By: #### L IPA, CMP, CRP, NAT #### [facility] [address] [address] [address] Keturah Fisher Glucose Ql (U) Negative Normal NEGATIVE [facility] Comment on above: Performed By: #### L IPA, CMP, CRP, NAT #### [facility] [address] [address] [address] Keturah Fisher Hemoglobin Ql (U) Negative Normal NEGATIVE The [facility] Comment on above: Performed By: #### L IPA, CMP, CRP, NAT #### [facility] [address] [address] [address] Keturah Fisher Ketones Ql (U) Negative Normal NEGATIVE [facility] Comment on above: Performed By: #### L IPA, CMP, CRP, NAT #### [facility] [address] [address] [address] Keturah Fisher LEUKOCYTES Negative Normal NEGATIVE [facility] Comment on above: Performed By: #### L IPA, CMP, CRP, NAT #### [facility] [address] [place] [address] Dr. Keturah Fisher Nitrite Ql (U) Negative Normal NEGATIVE [facility] Comment on above: Performed By: #### L IPA, CMP, CRP, NAT #### [facility] [address] [place] [address] Dr. Keturah Fisher pH (U) 5.5 [pH] Normal 5-9 [facility] Comment on above: Performed By: #### L IPA, CMP, CRP, NAT #### [facility] [address] [place] [address] Dr. Keturah Fisher SPEC GRAVITY >=1.030 Abnormal 1.005-<=1. 025 [facility] Comment on above: Performed By: #### L IPA, CMP, CRP, NAT #### [facility] [address] [place] [address] Dr. Keturah Fisher UA PROTEIN Negative Normal NEGATIVE/ TRACE [facility] Comment on above: Performed By: #### L IPA, CMP, CRP, NAT #### [facility] [address] [place] [address] Dr. Keturah Fisher UR MICRO IND NOT INDICATED Normal [facility] Comment on above: Performed By: #### L IPA, CMP, CRP, NAT #### [facility] [address] [place] [address] Dr. Keturah Fisher Urobilinogen Qn (U) 0.2 {Marizol'U}/dL Normal 0.2 - 1. 0 [facility] Comment on above: Performed By: #### L IPA, CMP, CRP, NAT #### [facility] [address] [place] [address] Dr. Keturah Fisher LIPASEon 01-15-2022 Lipase [Catalytic activity/Vol] 572.0 U/L Critically high 73.0-393.0 [facility] Comment on above: Performed By: #### C BC #### [facility] [address] [place] [address] Dr. Keturah Fisher URon 01-15-2022 , QUAL Negative Normal NEGATIVE [facility] Comment on above: Performed By: #### L IPA, CMP, CRP, NAT #### [facility] [address] [place] [address] Dr. Keturah Fisher PROF 14(COMP METB)on 022 Albumin [Mass/Vol] 3.8 g/dL Normal 3.4-5.0 [facility] Comment on above: Performed By: #### C BC #### [facility] [address] [place] [address] Dr. Keturah Fisher Albumin/Globulin [Mass ratio] 1.1 {ratio} Normal [facility] Comment on above: Performed By: #### C BC #### [facility] [address] [place] [address] Dr. Keturah Fisher ALP [Catalytic activity/Vol] 151 U/L Critically high 46-116 [facility] Comment on above: Performed By: #### C BC #### [facility] [address] [place] [address] Dr. Keturah Fisher ALT [Catalytic activity/Vol] 14 U/L Normal 14-59 [facility] Comment on above: Performed By: #### C BC #### [facility] [address] [place] [address] Dr. Keturah Fisher Anion gap [Moles/Vol] 5.5 mmol/L Normal [facility] Comment on above: Performed By: #### C BC #### [facility] [address] [place] [address] Dr. Keturah Fisher AST [Catalytic activity/Vol] 16 U/L Normal 15-37 [facility] Comment on above: Performed By: #### C BC #### [facility] [address] [place] [address] Dr. Keturah Fisher Bilirubin [Mass/Vol] 0.1 mg/dL Critically low 0.2-1.0 [facility] Comment on above: Performed By: #### C BC #### [facility] [address] [place] [address] Dr. Keturah Fisher Calcium [Mass/Vol] 9.5 mg/dL Normal 8.5-10.1 [facility] Comment on above: Performed By: #### C BC #### [facility] [address] [place] [address] Dr. Keturah Fisher Chloride [Moles/Vol] 105 mmol/L Normal 98-107 [facility] Comment on above: Performed By: #### C BC #### [facility] [address] [place] [address] Dr. Keturah Fisher CO2 [Moles/Vol] 30.0 mmol/L Normal 21.0-32.0 The [facility] Comment on above: Performed By: #### C BC #### [facility] [address] [place] [address] Dr. Keturah Fisher Creatinine [Mass/Vol] 0.90 mg/dL Normal 0.55-1.02 [facility] Comment on above: Performed By: #### C BC #### [facility] [address] [place] [address] Dr. Keturah Fisher EGFR-AF MONGOLIAN >60 Normal >=60 The [facility] Comment on above: Performed By: #### C BC #### [facility] [address] [place] [address] Dr. Keturah Fisher EGFR-NON AF MONGOLIAN >60 Normal >=60 [facility] Comment on above: Performed By: #### C BC #### [facility] [address] [place] [address] Dr. Keturah Fisher Globulin (S) [Mass/Vol] 3.4 g/dL Normal [facility] Comment on above: Performed By: #### C BC #### [facility] [address] [place] [address] Dr. Keturah Fisher Glucose [Mass/Vol] 82 mg/dL Normal 74-106 [facility] Comment on above: Performed By: #### C BC #### [facility] [address] [place] [address] Dr. Keturah Fisher Potassium [Moles/Vol] 3.5 mmol/L Normal 3.5-5.1 [facility] Comment on above: Performed By: #### C BC #### [facility] [address] [address] [address] Keturah Fisher Protein [Mass/Vol] 7.2 g/dL Normal 6.4-8.2 [facility] Comment on above: Performed By: #### C BC #### [facility] [address] [address] [address] Keturah Fisher Sodium [Moles/Vol] 137 mmol/L Normal 136-145 [facility] Comment on above: Performed By: #### C BC #### [facility] [address] [place] [address] Dr. Keturah Fisher Urea nitrogen [Mass/Vol] 12.0 mg/dL Normal 7.0-18.0 [facility] Comment on above: Performed By: #### C BC #### [facility] [address] [place] [address] Dr. Keturah Fisher Urea nitrogen/Creatinine [Mass ratio] 13.3 mg/mg Normal [facility] Comment on above: Performed By: #### C BC #### [facility] [address] [place] [address] Dr. Keturah Fisher AMYLASEon 12-13-2021 Amylase [Catalytic activity/Vol] 268 U/L Critically high 25-115 [facility] Comment on above: Performed By: #### L IPA, CMP, CRP, NAT #### [facility] [address] [place] [address] Dr. Keturah Fisher CBC AUTO DIFFon 12-13-2021 BASO # 0.1 103/ul Normal 0.0-0.1 [facility] Comment on above: Performed By: #### L IPA, CMP, CRP, NAT #### [facility] [address] [place] [address] Dr. Keturah Fisher Basophils/100 WBC (Bld) 0.6 % Normal 0.2-2.0 [facility] Comment on above: Performed By: #### L IPA, CMP, CRP, NAT #### [facility] [address] [place] [address] Dr. Keturah Fisher EO # 0.1 103/ul Normal 0.0-0.7 [facility] Comment on above: Performed By: #### L IPA, CMP, CRP, NAT #### [facility] [address] [place] [address] Dr. Keturah Fisher Eosinophils/100 WBC (Bld) 1.2 % Normal 0.9-7.0 [facility] Comment on above: Performed By: #### L IPA, CMP, CRP, NAT #### [facility] [address] [place] [address] Dr. Keturah Fisher Erythrocyte distribution width (RBC) [Ratio] 13.2 % Normal 11.0-15.0 [facility] Comment on above: Performed By: #### L IPA, CMP, CRP, NAT #### [facility] [address] [place] [address] Dr. Keturah Fishre Hematocrit (Bld) [Volume fraction] 44.7 % Normal 36.0-48.0 [facility] Comment on above: Performed By: #### L IPA, CMP, CRP, NAT #### [facility] [address] [place] [address] Dr. Keturah Fisher Hemoglobin (Bld) [Mass/Vol] 14.7 g/dL Normal 12.0-16.0 [facility] Comment on above: Performed By: #### L IPA, CMP, CRP, NAT #### [facility] [address] [place] [address] Dr. Keturah Fisher IG # 0.03 10e3/ul Normal 0.00-0.03 [facility] Comment on above: Performed By: #### L IPA, CMP, CRP, NAT #### [facility] [address] [place] [address] Dr. Keturah Fisher IG % 0.3 % Normal 0.0-0.5 [facility] Comment on above: Performed By: #### L IPA, CMP, CRP, NAT #### [facility] [address] [place] [address] Dr. Keturah Fisher LYMPH # 3.6 103/ul Normal 1.2-3.8 [facility] Comment on above: Performed By: #### L IPA, CMP, CRP, NAT #### [facility] [address] [address] [address] Keturah Fisher Lymphocytes/100 WBC (Bld) 32.7 % Normal 20.5-60.0 [facility] Comment on above: Performed By: #### L IPA, CMP, CRP, NAT #### [facility] [address] [place] [address] Dr. Keturah Fisher MANUAL DIFF REQ NO Normal [facility] Comment on above: Performed By: #### L IPA, CMP, CRP, NAT #### [facility] [address] [place] [address] Dr. Keturah Fisher MCH (RBC) [Entitic mass] 32.2 pg Normal 26.7-34.0 [facility] Comment on above: Performed By: #### L IPA, CMP, CRP, NAT #### [facility] [address] [place] [address] Dr. Keturah Fisher MCHC (RBC) [Mass/Vol] 32.9 g/dL Normal 29.9-35.2 [facility] Comment on above: Performed By: #### L IPA, CMP, CRP, NAT #### [facility] [address] [place] [address] Dr. Keturah Fisher MCV (RBC) [Entitic vol] 98.0 fL Normal 81.0-99.0 [facility] Comment on above: Performed By: #### L IPA, CMP, CRP, NAT #### [facility] [address] [place] [address] Dr. Keturah Fisher MONO # 1.1 103/ul Critically high 0.3-0.8 [facility] Comment on above: Performed By: #### L IPA, CMP, CRP, NAT #### [facility] [address] [place] [address] Dr. Keturah Fisher Monocytes/100 WBC (Bld) 9.7 % Normal 1.7-12.0 [facility] Comment on above: Performed By: #### L IPA, CMP, CRP, NAT #### [facility] [address] [address] [address] Keturah Fisher NEUT # 6.1 103/ul Normal 1.4-6.5 [facility] Comment on above: Performed By: #### L IPA, CMP, CRP, NAT #### [facility] [address] [address] [address] Keturah Fisher Neutrophils/100 WBC (Bld) 55.5 % Normal 43.0-75.0 [facility] Comment on above: Performed By: #### L IPA, CMP, CRP, NAT #### [facility] [address] [address] [address] Keturah Fisher Platelet mean volume (Bld) [Entitic vol] 9.7 fL Normal 9.5-13.5 [facility] Comment on above: Performed By: #### L IPA, CMP, CRP, NAT #### [facility] [address] [address] [address] Keturah Fisher PLT 274 103/ul Normal 150-450 [facility] Comment on above: Performed By: #### L IPA, CMP, CRP, NAT #### [facility] [address] [address] [address] Keturah Fisher RBC 4.56 106/ul Normal 4.20-5.40 [facility] Comment on above: Performed By: #### L IPA, CMP, CRP, NAT #### [facility] [address] [address] [address] Keturah Fisher WBC 10.9 103/ul Normal 4.0-11.0 [facility] Comment on above: Performed By: #### L IPA, CMP, CRP, NAT #### [facility] [address] [address] [address] Keturah Fisher CRPon 12-13-2021 CRP [Mass/Vol] mg/L Normal <=1.0 [facility] Comment on above: Performed By: #### L IPA, CMP, CRP, NAT #### [facility] [address] [address] [address] ABD/PELV W CONon 10-07-[address] ABD/PELV W CON EXAMINATION: CT [...] by: AGUSTIN HIGHTOWER Date: 2021-12-13 20:50 Normal [facility] LIPASEon 12-13-2021 Lipase [Catalytic activity/Vol] 1496.0 U/L Critically high 73.0-393.0 [facility] Comment on above: Performed By: #### L IPA, CMP, CRP, NAT #### [facility] [address] [address] [address] Keturah Fisher PROF 14(COMP METB)on 10-07-2 022 Albumin [Mass/Vol] 4.0 g/dL Normal 3.4-5.0 [facility] Comment on above: Performed By: #### L IPA, CMP, CRP, NAT #### [facility] [address] [place] [address] Dr. Keturah Fisher Albumin/Globulin [Mass ratio] 1.0 {ratio} Normal [facility] Comment on above: Performed By: #### L IPA, CMP, CRP, NAT #### [facility] [address] [place] [address] Dr. Keturah Fisher ALP [Catalytic activity/Vol] 166 U/L Critically high 46-116 [facility] Comment on above: Performed By: #### L IPA, CMP, CRP, NAT #### [facility] [address] [place] [address] Dr. Keturah Fisher ALT [Catalytic activity/Vol] 19 U/L Normal 14-59 [facility] Comment on above: Performed By: #### L IPA, CMP, CRP, NAT #### [facility] [address] [place] [address] Dr. Keturah Fisher Anion gap [Moles/Vol] 9.5 mmol/L Normal [facility] Comment on above: Performed By: #### L IPA, CMP, CRP, NAT #### [facility] [address] [place] [address] Dr. Keturah Fisher AST [Catalytic activity/Vol] 16 U/L Normal 15-37 [facility] Comment on above: Performed By: #### L IPA, CMP, CRP, NAT #### [facility] [address] [place] [address] Dr. Keturah Fisher Bilirubin [Mass/Vol] 0.1 mg/dL Critically low 0.2-1.0 [facility] Comment on above: Performed By: #### L IPA, CMP, CRP, NAT #### [facility] [address] [place] [address] Dr. Keturah Fisher Calcium [Mass/Vol] 9.6 mg/dL Normal 8.5-10.1 [facility] Comment on above: Performed By: #### L IPA, CMP, CRP, NAT #### [facility] [address] [address] [address] Keturah Fisher Chloride [Moles/Vol] 104 mmol/L Normal 98-107 [facility] Comment on above: Performed By: #### L IPA, CMP, CRP, NAT #### [facility] [address] [address] [address] Keturah Fisher CO2 [Moles/Vol] 29.7 mmol/L Normal 21.0-32.0 [facility] Comment on above: Performed By: #### L IPA, CMP, CRP, NAT #### [facility] [address] [address] [address] Keturah Fisher Creatinine [Mass/Vol] 0.85 mg/dL Normal 0.55-1.02 [facility] Comment on above: Performed By: #### L IPA, CMP, CRP, NAT #### [facility] [address] [address] [address] Keturah Fisher EGFR-AF MONGOLIAN >60 Normal >=60 [facility] Comment on above: Performed By: #### L IPA, CMP, CRP, NAT #### [facility] [address] [address] [address] Keturah Fisher EGFR-NON AF MONGOLIAN >60 Normal >=60 [facility] Comment on above: Performed By: #### L IPA, CMP, CRP, NAT #### [facility] [address] [address] [address] Keturah Fisher Globulin (S) [Mass/Vol] 3.9 g/dL Normal [facility] Comment on above: Performed By: #### L IPA, CMP, CRP, NAT #### [facility] [address] [address] [address] Keturah Fisher Glucose [Mass/Vol] 70 mg/dL Critically low 74-106 [facility] Comment on above: Performed By: #### L IPA, CMP, CRP, NAT #### [facility] [address] [address] [address] Keturah Fisher Potassium [Moles/Vol] 3.2 mmol/L Critically low 3.5-5.1 [facility] Comment on above: Performed By: #### L IPA, CMP, CRP, NAT #### [facility] [address] [place] [address] Dr. Keturah Fisher Protein [Mass/Vol] 7.9 g/dL Normal 6.4-8.2 [facility] Comment on above: Performed By: #### L IPA, CMP, CRP, NAT #### [facility] [address] [place] [address] Dr. Keturah Fisher Sodium [Moles/Vol] 140 mmol/L Normal 136-145 [facility] Comment on above: Performed By: #### L IPA, CMP, CRP, NAT #### [facility] [address] [place] [address] Dr. Keturah Fisher Urea nitrogen [Mass/Vol] 8.0 mg/dL Normal 7.0-18.0 [facility] Comment on above: Performed By: #### L IPA, CMP, CRP, NAT #### [facility] [address] [place] [address] Dr. Keturah Fisher Urea nitrogen/Creatinine [Mass ratio] 9.4 mg/mg Normal [facility] Comment on above: Performed By: #### L IPA, CMP, CRP, NAT #### [facility] [address] [place] [address] Dr. Keturah Fisher AMYLASEon 12-05-2021 Amylase [Catalytic activity/Vol] 223 U/L Critically high 25-115 [facility] Comment on above: Performed By: #### L IPA, CMP, CRP, NAT #### [facility] [address] [place] [address] Dr. Keturah Fisher CBC AUTO DIFFon 12-05-2021 BASO # 0.1 103/ul Normal 0.0-0.1 [facility] Comment on above: Performed By: #### C BC #### [facility] [address] [place] [address] Dr. Keturah Fisher Basophils/100 WBC (Bld) 0.7 % Normal 0.2-2.0 [facility] Comment on above: Performed By: #### C BC #### [facility] [address] [place] [address] Dr. Keturah Fisher EO # 0.2 103/ul Normal 0.0-0.7 [facility] Comment on above: Performed By: #### C BC #### [facility] [address] [place] [address] Dr. Keturah Fisher Eosinophils/100 WBC (Bld) 1.7 % Normal 0.9-7.0 [facility] Comment on above: Performed By: #### C BC #### [facility] [address] [place] [address] Dr. Keturah Fisher Erythrocyte distribution width (RBC) [Ratio] 13.0 % Normal 11.0-15.0 [facility] Comment on above: Performed By: #### C BC #### [facility] [address] [place] [address] Dr. Keturah Fisher Hematocrit (Bld) [Volume fraction] 44.9 % Normal 36.0-48.0 [facility] Comment on above: Performed By: #### C BC #### [facility] [address] [place] [address] Dr. Keturah Fisher Hemoglobin (Bld) [Mass/Vol] 15.1 g/dL Normal 12.0-16.0 [facility] Comment on above: Performed By: #### C BC #### [facility] [address] [place] [address] Dr. Keturah Fisher IG # 0.02 10e3/ul Normal 0.00-0.03 [facility] Comment on above: Performed By: #### C BC #### [facility] [address] [place] [address] Dr. Keturah Fisher IG % 0.2 % Normal 0.0-0.5 [facility] Comment on above: Performed By: #### C BC #### [facility] [address] [place] [address] Dr. Keturah Fisher LYMPH # 2.8 103/ul Normal 1.2-3.8 [facility] Comment on above: Performed By: #### C BC #### [facility] [address] [place] [address] Dr. Keturah Fisher Lymphocytes/100 WBC (Bld) 29.8 % Normal 20.5-60.0 [facility] Comment on above: Performed By: #### C BC #### [facility] [address] [place] [address] Dr. Keturah Fisher MANUAL DIFF REQ NO Normal [facility] Comment on above: Performed By: #### C BC #### [facility] [address] [place] [address] Dr. Keturah Fisher MCH (RBC) [Entitic mass] 32.4 pg Normal 26.7-34.0 [facility] Comment on above: Performed By: #### C BC #### [facility] [address] [place] [address] Dr. Keturah Fisher MCHC (RBC) [Mass/Vol] 33.6 g/dL Normal 29.9-35.2 [facility] Comment on above: Performed By: #### C BC #### [facility] [address] [place] [address] Dr. Keturah Fisher MCV (RBC) [Entitic vol] 96.4 fL Normal 81.0-99.0 [facility] Comment on above: Performed By: #### C BC #### [facility] [address] [place] [address] Dr. Keturah Fisher MONO # 0.6 103/ul Normal 0.3-0.8 [facility] Comment on above: Performed By: #### C BC #### [facility] [address] [place] [address] Dr. Keturah Fisher Monocytes/100 WBC (Bld) 6.3 % Normal 1.7-12.0 [facility] Comment on above: Performed By: #### C BC #### [facility] [address] [place] [address] Dr. Keturah Fisher NEUT # 5.7 103/ul Normal 1.4-6.5 [facility] Comment on above: Performed By: #### C BC #### [facility] [address] [place] [address] Dr. Keturah Fisher Neutrophils/100 WBC (Bld) 61.3 % Normal 43.0-75.0 [facility] Comment on above: Performed By: #### C BC #### [facility] [address] [place] [address] Dr. Keturah Fisher Platelet mean volume (Bld) [Entitic vol] 10.7 fL Normal 9.5-13.5 [facility] Comment on above: Performed By: #### C BC #### [facility] [address] [place] [address] Dr. Keturah Fisher PLT 217 103/ul Normal 150-450 [facility] Comment on above: Performed By: #### C BC #### [facility] [address] [place] [address] Dr. Keturah Fisher RBC 4.66 106/ul Normal 4.20-5.40 [facility] Comment on above: Performed By: #### C BC #### [facility] [address] [place] [address] Dr. Keturah Fisher WBC 9.2 103/ul Normal 4.0-11.0 [facility] Comment on above: Performed By: #### C BC #### [facility] [address] [place] [address] Dr. Keturah Fisher LIPASEon 12-05-2021 Lipase [Catalytic activity/Vol] 725.0 U/L Critically high 73.0-393.0 [facility] Comment on above: Performed By: #### L IPA, CMP, CRP, NAT #### [facility] [address] [place] [address] Dr. Keturah Fisher PROF 14(COMP METB)on 022 Albumin [Mass/Vol] 4.2 g/dL Normal 3.4-5.0 [facility] Comment on above: Performed By: #### L IPA, CMP, CRP, NAT #### [facility] [address] [place] [address] Dr. Keturah Fisher Albumin/Globulin [Mass ratio] 1.2 {ratio} Normal [facility] Comment on above: Performed By: #### L IPA, CMP, CRP, NAT #### [facility] [address] [address] [address] Keturah Fisher ALP [Catalytic activity/Vol] 158 U/L Critically high 46-116 [facility] Comment on above: Performed By: #### L IPA, CMP, CRP, NAT #### [facility] [address] [address] [address] Keturah Fisher ALT [Catalytic activity/Vol] 20 U/L Normal 14-59 [facility] Comment on above: Performed By: #### L IPA, CMP, CRP, NAT #### [facility] [address] [place] [address] Dr. Keturah Fisher Anion gap [Moles/Vol] 14.0 mmol/L Normal [facility] Comment on above: Performed By: #### L IPA, CMP, CRP, NAT #### [facility] [address] [place] [address] Dr. Keturah Fisher AST [Catalytic activity/Vol] 27 U/L Normal 15-37 [facility] Comment on above: Performed By: #### L IPA, CMP, CRP, NAT #### [facility] [address] [address] [address] Keturah Fisher Bilirubin [Mass/Vol] 0.3 mg/dL Normal 0.2-1.0 [facility] Comment on above: Performed By: #### L IPA, CMP, CRP, NAT #### [facility] [address] [address] [address] Keturah Fisher Calcium [Mass/Vol] 10.1 mg/dL Normal 8.5-10.1 [facility] Comment on above: Performed By: #### L IPA, CMP, CRP, NAT #### [facility] [address] [place] [address] Dr. Keturah Fisher Chloride [Moles/Vol] 105 mmol/L Normal 98-107 [facility] Comment on above: Performed By: #### L IPA, CMP, CRP, NAT #### [facility] [address] [address] [address] Keturah Fisher CO2 [Moles/Vol] 24.9 mmol/L Normal 21.0-32.0 [facility] Comment on above: Performed By: #### L IPA, CMP, CRP, NAT #### [facility] [address] [address] [address] Keturah Fisher Creatinine [Mass/Vol] 0.77 mg/dL Normal 0.55-1.02 [facility] Comment on above: Performed By: #### L IPA, CMP, CRP, NAT #### [facility] [address] [address] [address] Keturah Fisher EGFR-AF MONGOLIAN >60 Normal >=60 [facility] Comment on above: Performed By: #### L IPA, CMP, CRP, NAT #### [facility] [address] [address] [address] Keturah Fisher EGFR-NON AF MONGOLIAN >60 Normal >=60 [facility] Comment on above: Performed By: #### L IPA, CMP, CRP, NAT #### [facility] [address] [address] [address] Keturah Fisher Globulin (S) [Mass/Vol] 3.5 g/dL Normal [facility] Comment on above: Performed By: #### L IPA, CMP, CRP, NAT #### [facility] [address] [address] [address] Keturah Fisher Glucose [Mass/Vol] 91 mg/dL Normal 74-106 [facility] Comment on above: Performed By: #### L IPA, CMP, CRP, NAT #### [facility] [address] [address] [address] Keturah Fisher Potassium [Moles/Vol] 3.9 mmol/L Normal 3.5-5.1 [facility] Comment on above: Performed By: #### L IPA, CMP, CRP, NAT #### [facility] [address] [address] [address] Keturah Fisher Protein [Mass/Vol] 7.7 g/dL Normal 6.4-8.2 [facility] Comment on above: Performed By: #### L IPA, CMP, CRP, NAT #### [facility] [address] [place] [address] Dr. Keturah Fisher Sodium [Moles/Vol] 140 mmol/L Normal 136-145 [facility] Comment on above: Performed By: #### L IPA, CMP, CRP, NAT #### [facility] [address] [place] [address] Dr. Keturah Fisher Urea nitrogen [Mass/Vol] 8.0 mg/dL Normal 7.0-18.0 [facility] Comment on above: Performed By: #### L IPA, CMP, CRP, NAT #### [facility] [address] [place] [address] Dr. Keturah Fisher Urea nitrogen/Creatinine [Mass ratio] 10.4 mg/mg Normal [facility] Comment on above: Performed By: #### L IPA, CMP, CRP, NAT #### [facility] [address] [place] [address] Dr. Keturah Fisher AMYLASEon 10-11-2021 Amylase [Catalytic activity/Vol] 134 U/L Critically high 25-115 [facility] Comment on above: Performed By: #### C BC #### [facility] [address] [place] [address] Dr. Keturah Fisher CBC AUTO DIFFon 10-11-2021 BASO # 0.1 103/ul Normal 0.0-0.1 [facility] Comment on above: Performed By: #### L IPA, CMP, CRP, NAT #### [facility] [address] [place] [address] Dr. Keturah Fisher Basophils/100 WBC (Bld) 1.0 % Normal 0.2-2.0 [facility] Comment on above: Performed By: #### L IPA, CMP, CRP, NAT #### [facility] [address] [place] [address] Dr. Keturah Fisher EO # 0.2 103/ul Normal 0.0-0.7 [facility] Comment on above: Performed By: #### L IPA, CMP, CRP, NAT #### [facility] [address] [place] [address] Dr. Keturah Fisher Eosinophils/100 WBC (Bld) 2.0 % Normal 0.9-7.0 [facility] Comment on above: Performed By: #### L IPA, CMP, CRP, NAT #### [facility] [address] [place] [address] Dr. Keturah Fisher Erythrocyte distribution width (RBC) [Ratio] 13.2 % Normal 11.0-15.0 [facility] Comment on above: Performed By: #### L IPA, CMP, CRP, NAT #### [facility] [address] [place] [address] Dr. Keturah Fisher Hematocrit (Bld) [Volume fraction] 44.7 % Normal 36.0-48.0 [facility] Comment on above: Performed By: #### L IPA, CMP, CRP, NAT #### [facility] [address] [place] [address] Dr. Keturah Fisher Hemoglobin (Bld) [Mass/Vol] 15.0 g/dL Normal 12.0-16.0 [facility] Comment on above: Performed By: #### L IPA, CMP, CRP, NAT #### [facility] [address] [place] [address] Dr. Keturah Fisher IG # 0.02 10e3/ul Normal 0.00-0.03 [facility] Comment on above: Performed By: #### L IPA, CMP, CRP, NAT #### [facility] [address] [place] [address] Dr. Keturah Fisher IG % 0.2 % Normal 0.0-0.5 [facility] Comment on above: Performed By: #### L IPA, CMP, CRP, NAT #### [facility] [address] [place] [address] Dr. Keturah Fisher LYMPH # 4.1 103/ul Critically high 1.2-3.8 [facility] Comment on above: Performed By: #### L IPA, CMP, CRP, NAT #### [facility] [address] [place] [address] Dr. Keturah Fisher Lymphocytes/100 WBC (Bld) 38.9 % Normal 20.5-60.0 [facility] Comment on above: Performed By: #### L IPA, CMP, CRP, NAT #### [facility] [address] [address] [address] Keturah Fisher MANUAL DIFF REQ NO Normal [facility] Comment on above: Performed By: #### L IPA, CMP, CRP, NAT #### [facility] [address] [place] [address] Dr. Keturah Fisher MCH (RBC) [Entitic mass] 32.1 pg Normal 26.7-34.0 [facility] Comment on above: Performed By: #### L IPA, CMP, CRP, NAT #### [facility] [address] [place] [address] Dr. Keturah Fisher MCHC (RBC) [Mass/Vol] 33.6 g/dL Normal 29.9-35.2 [facility] Comment on above: Performed By: #### L IPA, CMP, CRP, NAT #### [facility] [address] [place] [address] Dr. Keturah Fisher MCV (RBC) [Entitic vol] 95.7 fL Normal 81.0-99.0 [facility] Comment on above: Performed By: #### L IPA, CMP, CRP, NAT #### [facility] [address] [place] [address] Dr. Keturah Fisher MONO # 0.9 103/ul Critically high 0.3-0.8 [facility] Comment on above: Performed By: #### L IPA, CMP, CRP, NAT #### [facility] [address] [place] [address] Dr. Keturah Fisher Monocytes/100 WBC (Bld) 8.8 % Normal 1.7-12.0 [facility] Comment on above: Performed By: #### L IPA, CMP, CRP, NAT #### [facility] [address] [place] [address] Dr. Keturah Fisher NEUT # 5.2 103/ul Normal 1.4-6.5 [facility] Comment on above: Performed By: #### L IPA, CMP, CRP, NAT #### [facility] [address] [place] [address] Dr. Keturah Fisher Neutrophils/100 WBC (Bld) 49.1 % Normal 43.0-75.0 [facility] Comment on above: Performed By: #### L IPA, CMP, CRP, NAT #### [facility] [address] [place] [address] Dr. Keturah Fisher Platelet mean volume (Bld) [Entitic vol] 9.8 fL Normal 9.5-13.5 [facility] Comment on above: Performed By: #### L IPA, CMP, CRP, NAT #### [facility] [address] [place] [address] Dr. Keturah Fisher PLT 299 103/ul Normal 150-450 [facility] Comment on above: Performed By: #### L IPA, CMP, CRP, NAT #### [facility] [address] [place] [address] Dr. Keturah Fisher RBC 4.67 106/ul Normal 4.20-5.40 [facility] Comment on above: Performed By: #### L IPA, CMP, CRP, NAT #### [facility] [address] [place] [address] Dr. Keturah Fisher WBC 10.5 103/ul Normal 4.0-11.0 [facility] Comment on above: Performed By: #### L IPA, CMP, CRP, NAT #### [facility] [address] [place] [address] Dr. Keturah Fisher LIPASEon 10-11-2021 Lipase [Catalytic activity/Vol] 240.0 U/L Normal 73.0-393.0 [facility] Comment on above: Performed By: #### C BC #### [facility] [address] [place] [address] Dr. Keturah Fisher PROF 14(COMP METB)on 022 Albumin [Mass/Vol] 4.3 g/dL Normal 3.4-5.0 [facility] Comment on above: Performed By: #### C BC #### [facility] [address] [place] [address] Dr. Keturah Fisher Albumin/Globulin [Mass ratio] 1.3 {ratio} Normal [facility] Comment on above: Performed By: #### C BC #### [facility] [address] [address] [address] Keturah Fisher ALP [Catalytic activity/Vol] 162 U/L Critically high 46-116 [facility] Comment on above: Performed By: #### C BC #### [facility] [address] [address] [address] Keturah Fisher ALT [Catalytic activity/Vol] 21 U/L Normal 14-59 [facility] Comment on above: Performed By: #### C BC #### [facility] [address] [address] [address] Keturah Fisher Anion gap [Moles/Vol] 15.1 mmol/L Normal [facility] Comment on above: Performed By: #### C BC #### [facility] [address] [place] [address] Dr. Keturah Fisher AST [Catalytic activity/Vol] 16 U/L Normal 15-37 [facility] Comment on above: Performed By: #### C BC #### [facility] [address] [place] [address] Dr. Keturah Fisher Bilirubin [Mass/Vol] 0.2 mg/dL Normal 0.2-1.0 [facility] Comment on above: Performed By: #### C BC #### [facility] [address] [place] [address] Dr. Keturah Fisher Calcium [Mass/Vol] 9.6 mg/dL Normal 8.5-10.1 [facility] Comment on above: Performed By: #### C BC #### [facility] [address] [place] [address] Dr. Keturah Fisher Chloride [Moles/Vol] 104 mmol/L Normal 98-107 [facility] Comment on above: Performed By: #### C BC #### [facility] [address] [address] [address] Keturah Fisher CO2 [Moles/Vol] 24.6 mmol/L Normal 21.0-32.0 [facility] Comment on above: Performed By: #### C BC #### [facility] [address] [address] [address] Keturah Fisher Creatinine [Mass/Vol] 0.88 mg/dL Normal 0.55-1.02 [facility] Comment on above: Performed By: #### C BC #### [facility] [address] [address] [address] Keturah Fisher EGFR-AF MONGOLIAN >60 Normal >=60 [facility] Comment on above: Performed By: #### C BC #### [facility] [address] [address] [address] Keturah Fisher EGFR-NON AF MONGOLIAN >60 Normal >=60 [facility] Comment on above: Performed By: #### C BC #### [facility] [address] [place] [address] Dr. Keturah Fisher Globulin (S) [Mass/Vol] 3.3 g/dL Normal [facility] Comment on above: Performed By: #### C BC #### [facility] [address] [place] [address] Dr. Keturah Fisher Glucose [Mass/Vol] 111 mg/dL Critically high 74-106 [facility] Comment on above: Performed By: #### C BC #### [facility] [address] [place] [address] Dr. Keturah Fisher Potassium [Moles/Vol] 3.7 mmol/L Normal 3.5-5.1 [facility] Comment on above: Performed By: #### C BC #### [facility] [address] [place] [address] Dr. Keturah Fisher Protein [Mass/Vol] 7.6 g/dL Normal 6.4-8.2 [facility] Comment on above: Performed By: #### C BC #### [facility] [address] [place] [address] Dr. Keturah Fisher Sodium [Moles/Vol] 140 mmol/L Normal 136-145 [facility] Comment on above: Performed By: #### C BC #### [facility] [address] [place] [address] Dr. Keturah Fisher Urea nitrogen [Mass/Vol] 11.0 mg/dL Normal 7.0-18.0 [facility] Comment on above: Performed By: #### C BC #### [facility] [address] [address] [address] Keturah Fisher Urea nitrogen/Creatinine [Mass ratio] 12.5 mg/mg Normal [facility] Comment on above: Performed By: #### C BC #### [facility] [address] [address] [address] Keturah Fisher PROTIMEon 10-11-2021 INR Coag (PPP) [Relative time] 0.94 {INR} Normal [facility] Comment on above: Performed By: #### P T, PTT ####[facility] [id number] [address]Dr. Keturah Fisher INR GUIDELINES SEE BELOW Normal [facility] Comment on above: Result Comment: KARLY RED INR: 2.0 - 3.0 CONDITIONS NOT LISTED BELOW 2.5 - 3.5 FOR PROSTHETIC HEART VALVE REPLACEMENT 2.5 - 3.5 RECURRENT THROMBOSIS Performed By: #### P T, PTT ####[facility] [id number] [address]Dr. Keturah Fisher PT Coag (PPP) [Time] 10.2 s Normal 9.0-11.6 [facility] Comment on above: Performed By: #### P T, PTT ####[facility] [id number] [address]Dr. Keturah Fisher PTTon 10-11-2021 aPTT Coag (Bld) [Time] 28.0 s Normal 22.3-36.2 [facility] Comment on above: Performed By: #### P T, PTT ####[facility] [id number] [address]Dr. Keturah Fisher Amphetamine Screen Ql (U)Ord ered By: Christa Lopez on 10-09-2021 Amphetamines Ql (U) Negative Negative [facility] Barbiturates [Presence] in U rineOrdered By: Christa Lopez on 10-09-2021 Barbiturates Ql (U) Negative Negative [facility] Basophils Auto (Bld) [#/Vol] Ordered By: Christa Lopez on 10-09-2021 Basophils (Bld) [#/Vol] 0.1 10*3/uL 0.0-0.2 [place] Basophils/100 WBC Auto (Bld) Ordered By: Christa Lopez on 10-09-2021 Basophils/100 WBC (Bld) 0.9 % . [place] Benzodiazepines [Presence] i n UrineOrdered By: Christa Lopez on 10-09-2021 Benzodiazepines Ql (U) Negative Negative [facility] Bilirubin Auto test strip Ql (U)Ordered By: Christa Lopez on 10-09-2021 Bilirubin Ql (U) Negative Negative [facility] Blood hemoglobin measurement (mass/volume)Ordered By: Christa Lopez on 10-09-2021 Hemoglobin (Bld) [Mass/Vol] 15.7 g/dL 11.8-15.4 [place] Blood leukocytes automated c ount (number/volume)Ordered By: Christa Lopez on 10-09-2021 WBC (Bld) [#/Vol] 10.1 10*3/uL 4.5-11.0 [facility] Body fluid albumin measureme nt (mass/volume)Ordered By: Christa Lopez on 10-09-2021 Albumin (Body fld) [Mass/Vol] 4.5 g/dL 3.2-5.5 [place] Cannabinoids [Presence] in U rine by Screen methodOrdered By: Christa Lopez on 10-09-2021 Cannabinoids Screen Ql (U) Negative Negative [place] Comment on above: These are unconfirme d results and should not be used for legal purposes. Drug Cut-Off Concentration: AMPH 1000 ng/mL BAILEY 200 ng/mL JAKE 200 ng/mL COCM 300 ng/mL OP 300 ng/mL PCP 25 ng/mL THC 20 ng/mL Creatinine and Glomerular fi ltration rate.predicted panel (S/P/Bld)Ordered By: Christa Lopez on 10-09-2021 Creatinine [Mass/Vol] 0.85 mg/dL 0.44-1.03 [facility] Eosinophils Auto (Bld) [#/Vo l]Ordered By: Christa Lopez on 10-09-2021 Eosinophils (Bld) [#/Vol] 0.1 10*3/uL 0.0-0.45 [place] Eosinophils/100 WBC Auto (Bl d)Ordered By: Christa Lopez on 10-09-2021 Eosinophils/100 WBC (Bld) 1.2 % . [place] Erythrocyte distribution wid th Auto (RBC) [Ratio]Ordered By: Christa Lopez on 10-09-2021 Erythrocyte distribution width (RBC) [Ratio] 13.5 % 11.9-15.3 [place] Estimated glomerular filtrat ion rate (GFR) non- AmericanOrdered By: Christa Lopez on 10-09-2021 GFR/1.73 sq M.predicted among non-blacks MDRD (S/P/Bld) [Vol rate/Area] > 60 mL/Min [place] Globulin Calc (S) [Mass/Vol] Ordered By: Christa Lopez on 10-09-2021 Globulin (S) [Mass/Vol] 2.9 g/dL [place] Hematocrit Auto (Bld) [Volum e fraction]Ordered By: Christa Lopez on 10-09-2021 Hematocrit (Bld) [Volume fraction] 47.1 % 34.0-46.4 [place] Ketones Auto test strip (U) [Mass/Vol]Ordered By: Christa Lopez on 10-09-2021 Ketones (U) [Mass/Vol] Negative Negative [facility] - Chemistry and C hemistry - challengeOrdered By: Christa Lopez on 10-09-2021 Lipase [Catalytic activity/Vol] 242.0 U/L 22-51 [place] [facility] - Drug toxicology Ordered By: Christa Lopez on 10-09-2021 Opiates Ql (U) Negative Negative [place] [facility] - Hematology and Cell countsOrdered By: Christa Lopez on 10-09-2021 Nucleated RBC/100 WBC (Bld) [Ratio] 0.1 % 0-0.5 [place] Lymphocytes Auto (Bld) [#/Vo l]Ordered By: Christa Lopez on 10-09-2021 Lymphocytes (Bld) [#/Vol] 2.6 10*3/uL 1.00-4.8 [place] Lymphocytes/100 WBC Auto (Bl d)Ordered By: Christa Lopez on 10-09-2021 Lymphocytes/100 WBC (Bld) 26.0 % . [place] MCH Auto (RBC) [Entitic mass ]Ordered By: Christa Lopez on 10-09-2021 MCH (RBC) [Entitic mass] 32.4 pg 24.7-34.3 [place] MCHC Auto (RBC) [Mass/Vol]Or dered By: Christa Lopez on 10-09-2021 MCHC (RBC) [Mass/Vol] 33.3 g/dL 32.0-35.0 [facility] MCV Auto (RBC) [Entitic vol] Ordered By: Christa Lopez on 10-09-2021 MCV (RBC) [Entitic vol] 97.3 fL 80-100 [place] Monocytes Auto (Bld) [#/Vol] Ordered By: Christa Lopez on 10-09-2021 Monocytes (Bld) [#/Vol] 0.8 10*3/uL 0.0-0.8 [place] Monocytes/100 WBC Auto (Bld) Ordered By: Christa Lopez on 10-09-2021 Monocytes/100 WBC (Bld) 7.6 % . [place] Neutrophils Auto (Bld) [#/Vo l]Ordered By: Christa Lopez on 10-09-2021 Neutrophils (Bld) [#/Vol] 6.5 10*3/uL 1.8-7.7 [place] Neutrophils/100 WBC Auto (Bl d)Ordered By: Christa Lopez on 10-09-2021 Neutrophils/100 WBC (Bld) 64.3 % . [place] No Panel InformationOrdered By: Christa Lopez on 10-09-2021 Estimated GFR () > 60 mL/Min [place] Comment on above: GFR estimated refere nce range: According to KDOQI guidelines, <60 ml/min/1.73m2 is sufficient to diagnose a patient with chronic kidney disease. Pharmacy Creatinine Clearance (Chem 61.23 [place] Phencyclidine Screen Ql (U)O rdered By: Christa Lopez on 10-09-2021 Phencyclidine Ql (U) Negative Negative [facility] Platelet mean volume Auto (B ld) [Entitic vol]Ordered By: Christa Lopez on 10-09-2021 Platelet mean volume (Bld) [Entitic vol] 8.5 fL 6.3-10.7 [place] Platelets Auto (Bld) [#/Vol] Ordered By: Christa Lopez on 10-09-2021 Platelets (Bld) [#/Vol] 284 10*3/uL 150-450 [place] Protein Auto test strip (U) [Mass/Vol]Ordered By: Christa Lopez on 10-09-2021 Protein (U) [Mass/Vol] Negative Negative [facility] Protein [Mass/volume] in Ser um or PlasmaOrdered By: Christa Lopez on 10-09-2021 Protein [Mass/Vol] 7.4 g/dL 6.1-7.9 [facility] RBC Auto (Bld) [#/Vol]Ordere d By: Christa Lopez on 10-09-2021 RBC (Bld) [#/Vol] 4.84 10*6/uL 3.60-5.00 [facility] Serum or plasma alanine hughes otransferase measurement without P-5'-P (enzymatic activiOrdered By: Christa Lopez on 10-09-2021 ALT No additional P-5'-P [Catalytic activity/Vol] 19 U/L 10-60 [place] Serum or plasma albumin/glob ulin mass ratioOrdered By: Christa Lopez on 10-09-2021 Albumin/Globulin [Mass ratio] 1.6 {ratio} [place] Serum or plasma alkaline jaqueline sphatase measurement (enzymatic activity/volume)Ordered By: Christa Lopez on 10-09-2021 ALP [Catalytic activity/Vol] 138 U/L 32-92 [place] Serum or plasma aspartate am inotransferase measurement (enzymatic activity/volume)Ordered By: Christa Lopez on 10-09-2021 AST [Catalytic activity/Vol] 31 U/L 10-42 [place] Serum or plasma calcium priscilla urement (mass/volume)Ordered By: Christa Lopez on 10-09-2021 Calcium [Mass/Vol] 10.3 mg/dL 8.2-10.2 [facility] Serum or plasma chloride daron surement (moles/volume)Ordered By: Christa Lopez on 10-09-2021 Chloride [Moles/Vol] 100 mmol/L 95-114 [facility] Serum or plasma glucose priscilla urement (mass/volume)Ordered By: Christa Lopez on 10-09-2021 Glucose [Mass/Vol] 75 mg/dL 70-100 [facility] Comment on above: ADA recommended refe rence range Random Glucose Reference Range is dependent on time and content of last meal. Glucose of more than 200 mg/dL in a nonstressed, ambulatory subject supports the diagnosis of Diabetes Mellitus. Serum or plasma potassium me asurement (moles/volume)Ordered By: Christa Lopez on 10-09-2021 Potassium [Moles/Vol] 3.9 mmol/L 3.5-5.1 [facility] Serum or plasma sodium measu rement (moles/volume)Ordered By: Christa Lopez on 10-09-2021 Sodium [Moles/Vol] 136 mmol/L 136-146 [facility] Serum or plasma total biliru bin measurement (mass/volume)Ordered By: Christa Lopez on 10-09-2021 Bilirubin [Mass/Vol] 0.4 mg/dL 0.3-1.2 [facility] Serum or plasma total carbon dioxide measurement (moles/volume)Ordered By: Christa Lopez on 10-09-2021 CO2 [Moles/Vol] 24.1 mmol/L 22.0-30.0 [facility] Serum or plasma urea nitroge n measurement (mass/volume)Ordered By: Christa Lopez on 10-09-2021 Urea nitrogen [Mass/Vol] 12 mg/dL 9- [place] Troponin I.cardiac [Mass/vol ume] in Serum or Plasma by High sensitivity methodOrdered By: Christa Lopez on 10-09-2021 Troponin I.cardiac High sensitivity method [Mass/Vol] 3 pg/mL 0-15 [place] Urine appearanceOrdered By: Christa Lopez on 10-09-2021 Appearance (U) Clear Clear [place] Urine cocaine detectionOrder ed By: Christa Lopez on 10-09-2021 Cocaine Ql (U) Negative Negative [place] Urine colorOrdered By: Christa Lopez on 10-09-2021 Color (U) Yellow Yellow [place] Urine glucose measurement by automated test strip (mass/volume)Ordered By: Christa Lopez on 10-09-2021 Glucose Auto test strip (U) [Mass/Vol] Normal mg/dL Normal [place] Urine hemoglobin detection b y automated test stripOrdered By: Christa Lopez on 10-09-2021 Hemoglobin Auto test strip Ql (U) Negative Negative [place] Urine leukocyte esterase det ection by automated test stripOrdered By: Christa Lopez on 10-09-2021 Leukocyte esterase Auto test strip Ql (U) Negative Negative [place] Urine nitrite detection by a utomated test stripOrdered By: Christa Lopez on 10-09-2021 Nitrite Auto test strip Ql (U) Negative Negative [place] Urobilinogen Auto test strip (U) [Mass/Vol]Ordered By: Christa Lopez on 10-09-2021 Urobilinogen (U) [Mass/Vol] Normal mg/dL Normal [place] pH Auto test strip (U)Ordere d By: Christa Lopez on 10-09-2021 pH (U) 1.025 [pH] 1.001-1.03 0 [place] pH (U) 5.5 [pH] 5.0-9.0 [place] Albumin [Mass/volume] in Ser um or PlasmaOrdered By: Reinaldo Amor on 10-04-2021 Albumin [Mass/Vol] 3.6 g/dL 3.2-5.5 [facility] Basophils Auto (Bld) [#/Vol] Ordered By: Reinaldo Amor on 10-04-2021 Basophils (Bld) [#/Vol] 0.1 10*3/uL 0.0-0.2 [place] Basophils/100 WBC Auto (Bld) Ordered By: Reinaldo Amor on 10-04-2021 Basophils/100 WBC (Bld) 0.8 % . [place] Bilirubin Auto test strip Ql (U)Ordered By: Reinaldo Amor on 10-04-2021 Bilirubin Ql (U) Negative Negative [facility] Blood hemoglobin measurement (mass/volume)Ordered By: Reinaldo Amor on 10-04-2021 Hemoglobin (Bld) [Mass/Vol] 13.9 g/dL 11.8-15.4 [place] Blood leukocytes automated c ount (number/volume)Ordered By: Reinaldo Amor on 10-04-2021 WBC (Bld) [#/Vol] 10.4 10*3/uL 4.5-11.0 [facility] Creatinine and Glomerular fi ltration rate.predicted panel (S/P/Bld)Ordered By: Reinaldo Amor on 10-04-2021 Creatinine [Mass/Vol] 0.73 mg/dL 0.44-1.03 [facility] Direct bilirubin measurement Ordered By: Reinaldo Amor on 10-04-2021 Bilirubin.direct [Mass/Vol] mg/dL 0.0-0.4 [place] Eosinophils Auto (Bld) [#/Vo l]Ordered By: Reinaldo Amor on 10-04-2021 Eosinophils (Bld) [#/Vol] 0.1 10*3/uL 0.0-0.45 [place] Eosinophils/100 WBC Auto (Bl d)Ordered By: Reinaldo Amor on 10-04-2021 Eosinophils/100 WBC (Bld) 0.5 % . [place] Erythrocyte distribution wid th Auto (RBC) [Ratio]Ordered By: Reinaldo Amor on 10-04-2021 Erythrocyte distribution width (RBC) [Ratio] 13.7 % 11.9-15.3 [place] Estimated glomerular filtrat ion rate (GFR) non- AmericanOrdered By: Reinaldo Amor on 10-04-2021 GFR/1.73 sq M.predicted among non-blacks MDRD (S/P/Bld) [Vol rate/Area] > 60 mL/Min [place] Globulin Calc (S) [Mass/Vol] Ordered By: Reinaldo Amor on 10-04-2021 Globulin (S) [Mass/Vol] 2.6 g/dL [place] Hematocrit Auto (Bld) [Volum e fraction]Ordered By: Reinaldo Amor on 10-04-2021 Hematocrit (Bld) [Volume fraction] 41.1 % 34.0-46.4 [place] Ketones Auto test strip (U) [Mass/Vol]Ordered By: Reinaldo Amro on 10-04-2021 Ketones (U) [Mass/Vol] Negative Negative [facility] - Chemistry and C hemistry - challengeOrdered By: Reinaldo Amor on 10-04-2021 Lipase [Catalytic activity/Vol] 107.0 U/L 22- [place] [facility] - Hematology and Cell countsOrdered By: Reinaldo Amor on 10-04-2021 Nucleated RBC/100 WBC (Bld) [Ratio] 0.1 % 0-0.5 [place] Lymphocytes Auto (Bld) [#/Vo l]Ordered By: Reinaldo Amor on 10-04-2021 Lymphocytes (Bld) [#/Vol] 2.5 10*3/uL 1.00-4.8 [place] Lymphocytes/100 WBC Auto (Bl d)Ordered By: Reinaldo Amor on 10-04-2021 Lymphocytes/100 WBC (Bld) 24.1 % . [place] MCH Auto (RBC) [Entitic mass ]Ordered By: Reinaldo Amor on 10-04-2021 MCH (RBC) [Entitic mass] 32.6 pg 24.7-34.3 [place] MCHC Auto (RBC) [Mass/Vol]Or dered By: Reinaldo Amor on 10-04-2021 MCHC (RBC) [Mass/Vol] 33.8 g/dL 32.0-35.0 [facility] MCV Auto (RBC) [Entitic vol] Ordered By: Reinaldo Amor on 10-04-2021 MCV (RBC) [Entitic vol] 96.5 fL 80-100 [place] Monocytes Auto (Bld) [#/Vol] Ordered By: Reinaldo Amor on 10-04-2021 Monocytes (Bld) [#/Vol] 0.9 10*3/uL 0.0-0.8 [place] Monocytes/100 WBC Auto (Bld) Ordered By: Reinaldo Amor on 10-04-2021 Monocytes/100 WBC (Bld) 8.4 % . [place] Neutrophils Auto (Bld) [#/Vo l]Ordered By: Reinaldo Amor on 10-04-2021 Neutrophils (Bld) [#/Vol] 6.9 10*3/uL 1.8-7.7 [place] Neutrophils/100 WBC Auto (Bl d)Ordered By: Reinaldo Amor on 10-04-2021 Neutrophils/100 WBC (Bld) 66.2 % . [place] No Panel InformationOrdered By: Reinaldo Amor on 10-04-2021 Estimated GFR () > 60 mL/Min [place] Comment on above: GFR estimated refere nce range: According to KDOQI guidelines, <60 ml/min/1.73m2 is sufficient to diagnose a patient with chronic kidney disease. Pharmacy Creatinine Clearance (Chem 71.30 [place] Platelet mean volume Auto (B ld) [Entitic vol]Ordered By: Reinaldo Amor on 10-04-2021 Platelet mean volume (Bld) [Entitic vol] 8.0 fL 6.3-10.7 [place] Platelets Auto (Bld) [#/Vol] Ordered By: Reinaldo Amor on 10-04-2021 Platelets (Bld) [#/Vol] 268 10*3/uL 150-450 [place] Protein Auto test strip (U) [Mass/Vol]Ordered By: Reinaldo Amor on 10-04-2021 Protein (U) [Mass/Vol] Negative Negative [facility] Protein [Mass/volume] in Ser um or PlasmaOrdered By: Reinaldo Amor on 10-04-2021 Protein [Mass/Vol] 6.2 g/dL 6.1-7.9 [facility] RBC Auto (Bld) [#/Vol]Ordere d By: Reinaldo Amor on 10-04-2021 RBC (Bld) [#/Vol] 4.26 10*6/uL 3.60-5.00 [facility] Serum or plasma alanine hughes otransferase measurement without P-5'-P (enzymatic activiOrdered By: Reinaldo Amor on 10-04-2021 ALT No additional P-5'-P [Catalytic activity/Vol] 15 U/L 10-60 [place] Serum or plasma albumin/glob ulin mass ratioOrdered By: Reinaldo Amor on 10-04-2021 Albumin/Globulin [Mass ratio] 1.4 {ratio} [place] Serum or plasma alkaline jaqueline sphatase measurement (enzymatic activity/volume)Ordered By: Reinaldo Amor on 10-04-2021 ALP [Catalytic activity/Vol] 103 U/L 32-92 [place] Serum or plasma amylase priscilla urement (enzymatic activity/volume)Ordered By: Reinaldo Amor on 10-04-2021 Amylase [Catalytic activity/Vol] 134 U/L 28-100 [place] Serum or plasma aspartate am inotransferase measurement (enzymatic activity/volume)Ordered By: Reinaldo Amor on 10-04-2021 AST [Catalytic activity/Vol] 20 U/L 10-42 [place] Serum or plasma calcium priscilla urement (mass/volume)Ordered By: Reinaldo Amor on 10-04-2021 Calcium [Mass/Vol] 9.6 mg/dL 8.2-10.2 [facility] Serum or plasma chloride daron surement (moles/volume)Ordered By: Reinaldo Amor on 10-04-2021 Chloride [Moles/Vol] 103 mmol/L 95-114 [facility] Serum or plasma ethanol priscilla urement (mass/volume)Ordered By: Reinaldo Amor on 10-04-2021 Ethanol [Mass/Vol] mg/dL [facility] Ethanol [Mass/Vol] TNP [facility] Comment on above: Test not performed Serum or plasma glucose priscilla urement (mass/volume)Ordered By: Reinaldo Amor on 10-04-2021 Glucose [Mass/Vol] 120 mg/dL 70-100 [facility] Comment on above: ADA recommended refe rence range Random Glucose Reference Range is dependent on time and content of last meal. Glucose of more than 200 mg/dL in a nonstressed, ambulatory subject supports the diagnosis of Diabetes Mellitus. Serum or plasma non-glucuron idated bilirubin measurement (mass/volume)Ordered By: Reinaldo Amor on 10-04-2021 Bilirubin.indirect [Mass/Vol] TNP [place] Comment on above: Test not performed Serum or plasma potassium me asurement (moles/volume)Ordered By: Reinaldo Amor on 10-04-2021 Potassium [Moles/Vol] 3.7 mmol/L 3.5-5.1 [facility] Serum or plasma sodium measu rement (moles/volume)Ordered By: Reinaldo Amor on 10-04-2021 Sodium [Moles/Vol] 137 mmol/L 136-146 [facility] Serum or plasma total biliru bin measurement (mass/volume)Ordered By: Reinaldo Amor on 10-04-2021 Bilirubin [Mass/Vol] 0.5 mg/dL 0.3-1.2 [facility] Serum or plasma total carbon dioxide measurement (moles/volume)Ordered By: Reinaldo Amor on 10-04-2021 CO2 [Moles/Vol] 24.9 mmol/L 22.0-30.0 [facility] Serum or plasma urea nitroge n measurement (mass/volume)Ordered By: Reinaldo Amor on 10-04-2021 Urea nitrogen [Mass/Vol] 7 mg/dL 9- [place] Urine appearanceOrdered By: Reinaldo Amor on 10-04-2021 Appearance (U) Clear Clear [place] Urine colorOrdered By: Ml Amor on 10-04-2021 Color (U) Yellow Yellow [place] Urine glucose measurement by automated test strip (mass/volume)Ordered By: Reinaldo Amor on 10-04-2021 Glucose Auto test strip (U) [Mass/Vol] Normal mg/dL Normal [place] Urine hemoglobin detection b y automated test stripOrdered By: Reinaldo Amor on 10-04-2021 Hemoglobin Auto test strip Ql (U) Negative Negative [place] Urine leukocyte esterase det ection by automated test stripOrdered By: Reinaldo Amor on 10-04-2021 Leukocyte esterase Auto test strip Ql (U) Negative Negative [place] Urine nitrite detection by a utomated test stripOrdered By: Reinaldo Amor on 10-04-2021 Nitrite Auto test strip Ql (U) Negative Negative [place] Urobilinogen Auto test strip (U) [Mass/Vol]Ordered By: Reinaldo Amor on 10-04-2021 Urobilinogen (U) [Mass/Vol] Normal mg/dL Normal [place] pH Auto test strip (U)Ordere d By: Reinaldo Amor on 10-04-2021 pH (U) 1.030 [pH] 1.001-1.03 0 [place] pH (U) 5.5 [pH] 5.0-9.0 [place] Basophils Auto (Bld) [#/Vol] Ordered By: Reinaldo Amor on 09-25-2021 Basophils (Bld) [#/Vol] 0.1 10*3/uL 0.0-0.2 [place] Basophils/100 WBC Auto (Bld) Ordered By: Reinaldo Amor on 09-25-2021 Basophils/100 WBC (Bld) 1.2 % . [place] Blood hemoglobin measurement (mass/volume)Ordered By: Reinaldo Amor on 09-25-2021 Hemoglobin (Bld) [Mass/Vol] 14.2 g/dL 11.8-15.4 [place] Blood leukocytes automated c ount (number/volume)Ordered By: Reinaldo Amor on 09-25-2021 WBC (Bld) [#/Vol] 9.3 10*3/uL 4.5-11.0 [facility] Body fluid albumin measureme nt (mass/volume)Ordered By: PROVIDER JONATHAN on 09-25-2021 Albumin (Body fld) [Mass/Vol] 4.3 g/dL 3.2-5.5 [place] Creatinine and Glomerular fi ltration rate.predicted panel (S/P/Bld)Ordered By: PROVIDER TEMMaty on 09-25-2021 Creatinine [Mass/Vol] 0.82 mg/dL 0.44-1.03 [facility] Eosinophils Auto (Bld) [#/Vo l]Ordered By: Reinaldo Amor on 09-25-2021 Eosinophils (Bld) [#/Vol] 0.2 10*3/uL 0.0-0.45 [place] Eosinophils/100 WBC Auto (Bl d)Ordered By: Reinaldo Amor on 09-25-2021 Eosinophils/100 WBC (Bld) 1.9 % . [place] Erythrocyte distribution wid th Auto (RBC) [Ratio]Ordered By: Reinaldo Amor on 09-25-2021 Erythrocyte distribution width (RBC) [Ratio] 13.7 % 11.9-15.3 [place] Estimated glomerular filtrat ion rate (GFR) non- AmericanOrdered By: PROVIDER TEMP on 09-25-2021 GFR/1.73 sq M.predicted among non-blacks MDRD (S/P/Bld) [Vol rate/Area] > 60 mL/Min [place] Globulin Calc (S) [Mass/Vol] Ordered By: PROVIDER TEMP on 09-25-2021 Globulin (S) [Mass/Vol] 3.3 g/dL [place] Hematocrit Auto (Bld) [Volum e fraction]Ordered By: Reinaldo Amor on 09-25-2021 Hematocrit (Bld) [Volume fraction] 42.1 % 34.0-46.4 [place] [facility] - Chemistry and C hemistry - challengeOrdered By: Reinaldo Amor on 09-25-2021 Lipase [Catalytic activity/Vol] 64.0 U/L 22-51 [place] [facility] - Hematology and Cell countsOrdered By: Reinaldo Amor on 09-25-2021 Nucleated RBC/100 WBC (Bld) [Ratio] 0.1 % 0-0.5 [place] Lymphocytes Auto (Bld) [#/Vo l]Ordered By: Reinaldo Amor on 09-25-2021 Lymphocytes (Bld) [#/Vol] 2.6 10*3/uL 1.00-4.8 [place] Lymphocytes/100 WBC Auto (Bl d)Ordered By: Reinaldo Amor on 09-25-2021 Lymphocytes/100 WBC (Bld) 28.1 % . [place] MCH Auto (RBC) [Entitic mass ]Ordered By: Reinaldo Amor on 09-25-2021 MCH (RBC) [Entitic mass] 32.5 pg 24.7-34.3 [place] MCHC Auto (RBC) [Mass/Vol]Or dered By: Reinaldo Amor on 09-25-2021 MCHC (RBC) [Mass/Vol] 33.7 g/dL 32.0-35.0 [facility] MCV Auto (RBC) [Entitic vol] Ordered By: Reinaldo Amor on 09-25-2021 MCV (RBC) [Entitic vol] 96.7 fL 80-100 [place] Monocytes Auto (Bld) [#/Vol] Ordered By: Reinaldo Amor on 09-25-2021 Monocytes (Bld) [#/Vol] 0.8 10*3/uL 0.0-0.8 [place] Monocytes/100 WBC Auto (Bld) Ordered By: Reinlado Amor on 09-25-2021 Monocytes/100 WBC (Bld) 8.2 % . [place] Neutrophils Auto (Bld) [#/Vo l]Ordered By: Reinaldo Amor on 09-25-2021 Neutrophils (Bld) [#/Vol] 5.6 10*3/uL 1.8-7.7 [place] Neutrophils/100 WBC Auto (Bl d)Ordered By: Reinaldo Amor on 09-25-2021 Neutrophils/100 WBC (Bld) 60.6 % . [place] No Panel InformationOrdered By: PROVIDER JONATHAN on 09-25-2021 Estimated GFR () > 60 mL/Min [place] Comment on above: GFR estimated refere nce range: According to KDOQI guidelines, <60 ml/min/1.73m2 is sufficient to diagnose a patient with chronic kidney disease. Pharmacy Creatinine Clearance (Chem 63.47 [place] Platelet mean volume Auto (B ld) [Entitic vol]Ordered By: Reinaldo Amor on 09-25-2021 Platelet mean volume (Bld) [Entitic vol] 8.6 fL 6.3-10.7 [place] Platelets Auto (Bld) [#/Vol] Ordered By: Reinaldo Amor on 09-25-2021 Platelets (Bld) [#/Vol] 221 10*3/uL 150-450 [place] Protein [Mass/volume] in Ser um or PlasmaOrdered By: PROVIDER JONATHAN on 09-25-2021 Protein [Mass/Vol] 7.6 g/dL 6.1-7.9 [facility] RBC Auto (Bld) [#/Vol]Ordere d By: Reinaldo Amor on 09-25-2021 RBC (Bld) [#/Vol] 4.35 10*6/uL 3.60-5.00 [facility] Serum or plasma alanine hughes otransferase measurement without P-5'-P (enzymatic activiOrdered By: PROVIDER TEMP on 09-25-2021 ALT No additional P-5'-P [Catalytic activity/Vol] 14 U/L 10-60 [place] Serum or plasma albumin/glob ulin mass ratioOrdered By: PROVIDER TEMP on 09-25-2021 Albumin/Globulin [Mass ratio] 1.3 {ratio} [place] Serum or plasma alkaline jaqueline sphatase measurement (enzymatic activity/volume)Ordered By: PROVIDER TEMP on 09-25-2021 ALP [Catalytic activity/Vol] 127 U/L 32-92 [place] Serum or plasma amylase priscilla urement (enzymatic activity/volume)Ordered By: Reinaldo Amor on 09-25-2021 Amylase [Catalytic activity/Vol] 171 U/L 28-100 [place] Serum or plasma aspartate am inotransferase measurement (enzymatic activity/volume)Ordered By: PROVIDER TEMP on 09-25-2021 AST [Catalytic activity/Vol] 21 U/L 10-42 [place] Serum or plasma calcium priscilla urement (mass/volume)Ordered By: PROVIDER TEMP on 09-25-2021 Calcium [Mass/Vol] 10.1 mg/dL 8.2-10.2 [facility] Serum or plasma chloride daron surement (moles/volume)Ordered By: PROVIDER TEMP on 09-25-2021 Chloride [Moles/Vol] 103 mmol/L 95-114 [facility] Serum or plasma glucose priscilla urement (mass/volume)Ordered By: PROVIDER TEMP on 09-25-2021 Glucose [Mass/Vol] 93 mg/dL 70-100 [facility] Comment on above: ADA recommended refe rence range Random Glucose Reference Range is dependent on time and content of last meal. Glucose of more than 200 mg/dL in a nonstressed, ambulatory subject supports the diagnosis of Diabetes Mellitus. Serum or plasma potassium me asurement (moles/volume)Ordered By: PROVIDER TEMP on 09-25-2021 Potassium [Moles/Vol] 3.9 mmol/L 3.5-5.1 [facility] Serum or plasma sodium measu rement (moles/volume)Ordered By: PROVIDER TEMP on 09-25-2021 Sodium [Moles/Vol] 137 mmol/L 136-146 [facility] Serum or plasma total biliru bin measurement (mass/volume)Ordered By: PROVIDER TEMP on 09-25-2021 Bilirubin [Mass/Vol] 0.3 mg/dL 0.3-1.2 [facility] Serum or plasma total carbon dioxide measurement (moles/volume)Ordered By: PROVIDER TEMP on 09-25-2021 CO2 [Moles/Vol] 26.3 mmol/L 22.0-30.0 [facility] Serum or plasma urea nitroge n measurement (mass/volume)Ordered By: PROVIDER TEMP on 09-25-2021 Urea nitrogen [Mass/Vol] 8 mg/dL 9-23 [place] AMYLASEon 09-17-2021 Amylase [Catalytic activity/Vol] 142 U/L Critically high 25-115 [facility] Comment on above: Performed By: #### A MY, CMP, LIPA ####[facility] [address] [place] [address]Dr. Keturah Fisher CBC AUTO DIFFon 09-17-2021 BASO # 0.1 103/ul Normal 0.0-0.1 [facility] Comment on above: Performed By: #### C BC ####[facility] [address] [place] [address]Dr. Keturah Fisher Basophils/100 WBC (Bld) 0.7 % Normal 0.2-2.0 [facility] Comment on above: Performed By: #### C BC ####[facility] [address] [place] [address]Dr. Keturah Fisher EO # 0.1 103/ul Normal 0.0-0.7 [facility] Comment on above: Performed By: #### C BC ####[facility] [address] [place] [address]Dr. Keturah Fisher Eosinophils/100 WBC (Bld) 1.3 % Normal 0.9-7.0 [facility] Comment on above: Performed By: #### C BC ####[facility] [address] [place] [address]Dr. Keturah Fisher Erythrocyte distribution width (RBC) [Ratio] 13.2 % Normal 11.0-15.0 [facility] Comment on above: Performed By: #### C BC ####[facility] [address] [place], [place] [address]Dr. Keturah Fisher Hematocrit (Bld) [Volume fraction] 43.7 % Normal 36.0-48.0 [facility] Comment on above: Performed By: #### C BC ####[facility] Upufvqnkdm[address] [place], [place] [address]Dr. Keturah Fisher Hemoglobin (Bld) [Mass/Vol] 14.7 g/dL Normal 12.0-16.0 [facility] Comment on above: Performed By: #### C BC ####[facility] [address] [place], [place] [address]Dr. Keturah Fisher IG # 0.01 10e3/ul Normal 0.00-0.03 [facility] Comment on above: Performed By: #### C BC ####[facility] Ipxsvtwx[address] [place], [place] [address]Dr. Keturah Fisher IG % 0.1 % Normal 0.0-0.5 [facility] Comment on above: Performed By: #### C BC ####[facility] [address] [place], [place] [address]Dr. Keturah Fisher LYMPH # 2.7 103/ul Normal 1.2-3.8 [facility] Comment on above: Performed By: #### C BC ####[facility] [address] [place], [place] [address]Dr. Keturah Fisher Lymphocytes/100 WBC (Bld) 30.1 % Normal 20.5-60.0 [facility] Comment on above: Performed By: #### C BC ####[facility] [address] [place], [place] [address]Dr. Keturah Fisher MANUAL DIFF REQ NO Normal [facility] Comment on above: Performed By: #### C BC ####[facility] [address] [place] [id number]. Keturah Fisher MCH (RBC) [Entitic mass] 32.4 pg Normal 26.7-34.0 [facility] Comment on above: Performed By: #### C BC ####[facility] [address] [place] [address]Dr. Keturah Fisher MCHC (RBC) [Mass/Vol] 33.6 g/dL Normal 29.9-35.2 [facility] Comment on above: Performed By: #### C BC ####[facility] [address]em[address] [place], [place] [address]Dr. Keturah Phillip MCV (RBC) [Entitic vol] 96.3 fL Normal 81.0-99.0 [facility] Comment on above: Performed By: #### C BC ####[facility] [address] [place], [place] [address]Dr. Elisaeli Fisher MONO # 0.8 103/ul Normal 0.3-0.8 [facility] Comment on above: Performed By: #### C BC ####[facility] Dof[address]ri[address] [place], [place] [address]Dr. Elisaeli Fisher Monocytes/100 WBC (Bld) 8.7 % Normal 1.7-12.0 [facility] Comment on above: Performed By: #### C BC ####[facility] [address]te[address] [place], [place] [address]Dr. Keturah Fisher NEUT # 5.4 103/ul Normal 1.4-6.5 [facility] Comment on above: Performed By: #### C BC ####[facility] E[address]ww[address] [place], [place] [address]Dr. Elisaeli Fisher Neutrophils/100 WBC (Bld) 59.1 % Normal 43.0-75.0 [facility] Comment on above: Performed By: #### C BC ####[facility] [address] [place], [place] [address]Dr. Keturah Fisher Platelet mean volume (Bld) [Entitic vol] 9.6 fL Normal 9.5-13.5 [facility] Comment on above: Performed By: #### C BC ####[facility] [address] [place] [id number]. Keturah Fisher PLT 272 103/ul Normal 150-450 [facility] Comment on above: Performed By: #### C BC ####[facility] [address] [place] [id number]. Keturah Fisher RBC 4.54 106/ul Normal 4.20-5.40 [facility] Comment on above: Performed By: #### C BC ####[facility] [address] [place] [id number]. Keturah Fisher WBC 9.1 103/ul Normal 4.0-11.0 [facility] Comment on above: Performed By: #### C BC ####[facility] [address] [place] [address]DrGopal Fisher ETHANOL (BLD ALC)on 09-18-19 22 ALC NOTE NOTE: 80 mg/dl is th e legal limit for a blood alcohol level Normal [facility] Comment on above: Performed By: #### L IPA, CMP, CRP, NAT #### [facility] [address] [place] [address] Dr. Keturah Fisher Ethanol [Mass/Vol] mg/dL Normal [facility] Comment on above: Performed By: #### L IPA, CMP, CRP, NAT #### [facility] [address] [place] [address] Dr. Keturah Fisher LIPASEon 09-17-2021 Lipase [Catalytic activity/Vol] 524.0 U/L Critically high 73.0-393.0 [facility] Comment on above: Performed By: #### C BC #### [facility] [address] [place] [address] Dr. Keturah Fisher PROF 14(COMP METB)on 022 Albumin [Mass/Vol] 3.9 g/dL Normal 3.4-5.0 [facility] Comment on above: Performed By: #### C BC #### [facility] [address] [place], [place] [id number] Dr. Keturah Fisher Albumin/Globulin [Mass ratio] 1.1 {ratio} Normal [facility] Comment on above: Performed By: #### C BC #### [facility] [address] [place] [address] Dr. Keturah Fisher ALP [Catalytic activity/Vol] 136 U/L Critically high 46-116 [facility] Comment on above: Performed By: #### C BC #### [facility] [address] [place] [address] Dr. Keturah Fisher ALT [Catalytic activity/Vol] 21 U/L Normal 14-59 [facility] Comment on above: Performed By: #### C BC #### [facility] [address] [place] [address] Dr. Keturah Fisher Anion gap [Moles/Vol] 12.7 mmol/L Normal [facility] Comment on above: Performed By: #### C BC #### [facility] [address] [place] [address] Dr. Keturah Fisher AST [Catalytic activity/Vol] 16 U/L Normal 15-37 [facility] Comment on above: Performed By: #### C BC #### [facility] [address] [place] [address] Dr. Keturah Fisher Bilirubin [Mass/Vol] 0.2 mg/dL Normal 0.2-1.0 [facility] Comment on above: Performed By: #### C BC #### [facility] [address] [place] [address] Dr. Keturah Fisher Calcium [Mass/Vol] 9.9 mg/dL Normal 8.5-10.1 [facility] Comment on above: Performed By: #### C BC #### [facility] [address] [place] [address] Dr. Keturah Fisher Chloride [Moles/Vol] 106 mmol/L Normal 98-107 [facility] Comment on above: Performed By: #### C BC #### [facility] [address] [place] [address] Dr. Keturah Fisher CO2 [Moles/Vol] 25.9 mmol/L Normal 21.0-32.0 [facility] Comment on above: Performed By: #### C BC #### [facility] [address] [address] [address] Keturah Fisher Creatinine [Mass/Vol] 0.96 mg/dL Normal 0.55-1.02 [facility] Comment on above: Performed By: #### C BC #### [facility] [address] [address] [address] Keturah Fisher EGFR-AF MONGOLIAN >60 Normal >=60 [facility] Comment on above: Performed By: #### C BC #### [facility] [address] [address] [address] Keturah Fisher EGFR-NON AF MONGOLIAN >60 Normal >=60 [facility] Comment on above: Performed By: #### C BC #### [facility] [address] [place] [address] Dr. Keturah Fisher Globulin (S) [Mass/Vol] 3.5 g/dL Normal [facility] Comment on above: Performed By: #### C BC #### [facility] [address] [place] [address] Dr. Keturah Fisher Glucose [Mass/Vol] 113 mg/dL Critically high 74-106 [facility] Comment on above: Performed By: #### C BC #### [facility] [address] [place] [address] Dr. Keturah Fisher Potassium [Moles/Vol] 3.6 mmol/L Normal 3.5-5.1 [facility] Comment on above: Performed By: #### C BC #### [facility] [address] [place] [address] Dr. Keturah Fisher Protein [Mass/Vol] 7.4 g/dL Normal 6.4-8.2 [facility] Comment on above: Performed By: #### C BC #### [facility] [address] [address] [address] Keturah Fisher Sodium [Moles/Vol] 141 mmol/L Normal 136-145 [facility] Comment on above: Performed By: #### C BC #### [facility] [address] [address] [address] Keturah Fisher Urea nitrogen [Mass/Vol] 8.0 mg/dL Normal 7.0-18.0 [facility] Comment on above: Performed By: #### C BC #### [facility] [address] [address] [address] Keturah Fisher Urea nitrogen/Creatinine [Mass ratio] 8.3 mg/mg Normal [facility] Comment on above: Performed By: #### C BC #### [facility] [address] [address] [address] Keturah Fisher AMYLASEon 08-26-2021 Amylase [Catalytic activity/Vol] 94 U/L Normal 25-115 [facility] Comment on above: Performed By: #### A MY, CMP, LIPA ####[facility] [address] [place] [address]Dr. Keturah Fisher CBC AUTO DIFFon 08-26-2021 BASO # 0.1 103/ul Normal 0.0-0.1 [facility] Comment on above: Performed By: #### L IPA, CMP, CRP, NAT #### [facility] [address] [place] [address] Dr. Keturah Fisher Basophils/100 WBC (Bld) 0.7 % Normal 0.2-2.0 [facility] Comment on above: Performed By: #### L IPA, CMP, CRP, NAT #### [facility] [address] [place] [address] Dr. Keturah Fisher EO # 0.2 103/ul Normal 0.0-0.7 [facility] Comment on above: Performed By: #### L IPA, CMP, CRP, NAT #### [facility] [address] [place] [address] Dr. Keturah Fisher Eosinophils/100 WBC (Bld) 2.5 % Normal 0.9-7.0 [facility] Comment on above: Performed By: #### L IPA, CMP, CRP, NAT #### [facility] [address] [place] [address] Dr. Keturah Fisher Erythrocyte distribution width (RBC) [Ratio] 13.1 % Normal 11.0-15.0 [facility] Comment on above: Performed By: #### L IPA, CMP, CRP, NAT #### [facility] [address] [place] [address] Dr. Keturah Fisher Hematocrit (Bld) [Volume fraction] 42.4 % Normal 36.0-48.0 [facility] Comment on above: Performed By: #### L IPA, CMP, CRP, NAT #### [facility] [address] [place] [address] Dr. Keturah Fisher Hemoglobin (Bld) [Mass/Vol] 14.1 g/dL Normal 12.0-16.0 [facility] Comment on above: Performed By: #### L IPA, CMP, CRP, NAT #### [facility] [address] [place] [address] Dr. Keturah Fisher IG # 0.03 10e3/ul Normal 0.00-0.03 [facility] Comment on above: Performed By: #### L IPA, CMP, CRP, NAT #### [facility] [address] [place] [address] Dr. Keturah Fisher IG % 0.3 % Normal 0.0-0.5 [facility] Comment on above: Performed By: #### L IPA, CMP, CRP, NAT #### [facility] [address] [place] [address] Dr. Keturah Fisher LYMPH # 2.6 103/ul Normal 1.2-3.8 [facility] Comment on above: Performed By: #### L IPA, CMP, CRP, NAT #### [facility] [address] [place] [address] Dr. Keturah Fisher Lymphocytes/100 WBC (Bld) 27.7 % Normal 20.5-60.0 [facility] Comment on above: Performed By: #### L IPA, CMP, CRP, NAT #### [facility] [address] [place] [address] Dr. Keturah Fisher MANUAL DIFF REQ NO Normal [facility] Comment on above: Performed By: #### L IPA, CMP, CRP, NAT #### [facility] [address] [place] [address] Dr. Keturah Fisher MCH (RBC) [Entitic mass] 32.6 pg Normal 26.7-34.0 [facility] Comment on above: Performed By: #### L IPA, CMP, CRP, NAT #### [facility] [address] [place] [address] Dr. Keturah Fisher MCHC (RBC) [Mass/Vol] 33.3 g/dL Normal 29.9-35.2 [facility] Comment on above: Performed By: #### L IPA, CMP, CRP, NAT #### [facility] [address] [place] [address] Dr. Keturah Fisher MCV (RBC) [Entitic vol] 97.9 fL Normal 81.0-99.0 [facility] Comment on above: Performed By: #### L IPA, CMP, CRP, NAT #### [facility] [address] [place] [address] Dr. Keturah Fisher MONO # 1.2 103/ul Critically high 0.3-0.8 [facility] Comment on above: Performed By: #### L IPA, CMP, CRP, NAT #### [facility] [address] [place] [address] Dr. Keturah Fisher Monocytes/100 WBC (Bld) 12.9 % Critically high 1.7-12.0 [facility] Comment on above: Performed By: #### L IPA, CMP, CRP, NAT #### [facility] [address] [place] [address] Dr. Keturah Fisher NEUT # 5.3 103/ul Normal 1.4-6.5 [facility] Comment on above: Performed By: #### L IPA, CMP, CRP, NAT #### [facility] [address] [place] [address] Dr. Keturah Fisher Neutrophils/100 WBC (Bld) 55.9 % Normal 43.0-75.0 [facility] Comment on above: Performed By: #### L IPA, CMP, CRP, NAT #### [facility] [address] [address] [address] Keturah Fisher Platelet mean volume (Bld) [Entitic vol] 9.8 fL Normal 9.5-13.5 [facility] Comment on above: Performed By: #### L IPA, CMP, CRP, NAT #### [facility] [address] [address] [address] Keturah Fisher PLT 229 103/ul Normal 150-450 [facility] Comment on above: Performed By: #### L IPA, CMP, CRP, NAT #### [facility] [address] [address] [address] Keturah Fisher RBC 4.33 106/ul Normal 4.20-5.40 [facility] Comment on above: Performed By: #### L IPA, CMP, CRP, NAT #### [facility] [address] [address] [address] Keturah Fisher WBC 9.5 103/ul Normal 4.0-11.0 [facility] Comment on above: Performed By: #### L IPA, CMP, CRP, NAT #### [facility] [address] [address] [address] Keturah Fisher LIPASEon 08-26-2021 Lipase [Catalytic activity/Vol] 146.0 U/L Normal 73.0-393.0 [facility] Comment on above: Performed By: #### A MY, CMP, LIPA ####[facility] [address] [place] [address]Dr. Keturah Fisher PROF 14(COMP METB)on 022 Albumin [Mass/Vol] 3.5 g/dL Normal 3.4-5.0 [facility] Comment on above: Performed By: #### A MY, CMP, LIPA ####[facility] [address] [place] [address]Dr. Keturah Fisher Albumin/Globulin [Mass ratio] 1.1 {ratio} Normal [facility] Comment on above: Performed By: #### A MY, CMP, LIPA ####[facility] [address] [place] [address]Dr. Keturah Fisher ALP [Catalytic activity/Vol] 139 U/L Critically high 46-116 [facility] Comment on above: Performed By: #### A MY, CMP, LIPA ####[facility] [address] [place] [address]Dr. Keturah Fisher ALT [Catalytic activity/Vol] 21 U/L Normal 14-59 [facility] Comment on above: Performed By: #### A MY, CMP, LIPA ####[facility] [address] [place] [address]Dr. Keturah Fisher Anion gap [Moles/Vol] 11.4 mmol/L Normal [facility] Comment on above: Performed By: #### A MY, CMP, LIPA ####[facility] [address] [place] [address]Dr. Keturah Fisher AST [Catalytic activity/Vol] 21 U/L Normal 15-37 [facility] Comment on above: Performed By: #### A MY, CMP, LIPA ####[facility] [address] [place] [address]Dr. Keturah Fisher Bilirubin [Mass/Vol] 0.2 mg/dL Normal 0.2-1.0 [facility] Comment on above: Performed By: #### A MY, CMP, LIPA ####[facility] [address] [place] [address]Dr. Keturah Fisher Calcium [Mass/Vol] 9.2 mg/dL Normal 8.5-10.1 [facility] Comment on above: Performed By: #### A MY, CMP, LIPA ####[facility] [address] [place] [address]Dr. Keturah Fisher Chloride [Moles/Vol] 107 mmol/L Normal 98-107 [facility] Comment on above: Performed By: #### A MY, CMP, LIPA ####[facility] [address] [place] [address]Dr. Keturah Fisher CO2 [Moles/Vol] 27.9 mmol/L Normal 21.0-32.0 [facility] [place] Comment on above: Performed By: #### A MY, CMP, LIPA ####[facility] [address] [place] [id number]. Keturah Fisher Creatinine [Mass/Vol] 0.84 mg/dL Normal 0.55-1.02 [facility] Comment on above: Performed By: #### A MY, CMP, LIPA ####[facility] [address] [place] [id number]. Keturah Fisher EGFR-AF MONGOLIAN >60 Normal >=60 [facility] Comment on above: Performed By: #### A MY, CMP, LIPA ####[facility] [address] [place] [address]Dr. Keturah Fisher EGFR-NON AF MONGOLIAN >60 Normal >=60 [facility] Comment on above: Performed By: #### A MY, CMP, LIPA ####[facility] [address] [place] [address]Dr. Keturah Fisher Globulin (S) [Mass/Vol] 3.3 g/dL Normal [facility] Comment on above: Performed By: #### A MY, CMP, LIPA ####[facility] [address] [place] [address]Dr. Keturah Fisher Glucose [Mass/Vol] 106 mg/dL Normal 74-106 [facility] Comment on above: Performed By: #### A MY, CMP, LIPA ####[facility] [address] [place] [address]Dr. Keturah Fisher Potassium [Moles/Vol] 4.3 mmol/L Normal 3.5-5.1 [facility] Comment on above: Performed By: #### A MY, CMP, LIPA ####[facility] [address] [place], [place] [address]Dr. Keturah Fisher Protein [Mass/Vol] 6.8 g/dL Normal 6.4-8.2 [facility] Comment on above: Performed By: #### A MY, CMP, LIPA ####[facility] [address] [place] [address]Dr. Keturah Fisher Sodium [Moles/Vol] 142 mmol/L Normal 136-145 [facility] Comment on above: Performed By: #### A MY, CMP, LIPA ####[facility] [address] [place], [place] [address]Ef. Keturah Fisher Urea nitrogen [Mass/Vol] 11.0 mg/dL Normal 7.0-18.0 [facility] Comment on above: Performed By: #### A MY, CMP, LIPA ####[facility] [address] [place], [place] [address]Bf. Keturah Fisher Urea nitrogen/Creatinine [Mass ratio] 13.1 mg/mg Normal [facility] Comment on above: Performed By: #### A MY, CMP, LIPA ####[facility] [address] [place], [place] [address]RlGopal Fisher XR ABD FLAT UP_PA Jorje 08-26 [...] by: MILADIS BARRERA Date: 2021-08-26 04:59 Normal [facility] AMYLASEon 08-22-2021 Amylase [Catalytic activity/Vol] 155 U/L Critically high 25-115 [facility] Comment on above: Performed By: #### C MP, NAT, LIPA #### [facility] [address] [place], [place] [address] Dr. Keturah Fisher CBC AUTO DIFFon 08-22-2021 BASO # 0.1 103/ul Normal 0.0-0.1 [facility] Comment on above: Performed By: #### L IPA, CMP, CRP, NAT #### [facility] [address] [place] [address] Dr. Keturah Fisher Basophils/100 WBC (Bld) 0.7 % Normal 0.2-2.0 [facility] Comment on above: Performed By: #### L IPA, CMP, CRP, NAT #### [facility] [address] [place] [address] Dr. Keturah Fisher EO # 0.1 103/ul Normal 0.0-0.7 [facility] Comment on above: Performed By: #### L IPA, CMP, CRP, NAT #### [facility] [address] [place] [address] Dr. Keturah Fisher Eosinophils/100 WBC (Bld) 0.7 % Critically low 0.9-7.0 [facility] Comment on above: Performed By: #### L IPA, CMP, CRP, NAT #### [facility] [address] [place] [address] Dr. Keturah Fisher Erythrocyte distribution width (RBC) [Ratio] 13.2 % Normal 11.0-15.0 [facility] Comment on above: Performed By: #### L IPA, CMP, CRP, NAT #### [facility] [address] [place] [address] Dr. Keturah Fisher Hematocrit (Bld) [Volume fraction] 41.1 % Normal 36.0-48.0 [facility] Comment on above: Performed By: #### L IPA, CMP, CRP, NAT #### [facility] [address] [place] [address] Dr. Keturah Fisher Hemoglobin (Bld) [Mass/Vol] 13.8 g/dL Normal 12.0-16.0 [facility] Comment on above: Performed By: #### L IPA, CMP, CRP, NAT #### [facility] [address] [place] [address] Dr. Keturah Fisher IG # 0.03 10e3/ul Normal 0.00-0.03 [facility] Comment on above: Performed By: #### L IPA, CMP, CRP, NAT #### [facility] [address] [place] [address] Dr. Keturah Fisher IG % 0.2 % Normal 0.0-0.5 [facility] Comment on above: Performed By: #### L IPA, CMP, CRP, NAT #### [facility] [address] [place] [address] Dr. Keturah Fisher LYMPH # 2.6 103/ul Normal 1.2-3.8 [facility] Comment on above: Performed By: #### L IPA, CMP, CRP, NAT #### [facility] [address] [place] [address] Dr. Keturah Fisher Lymphocytes/100 WBC (Bld) 21.4 % Normal 20.5-60.0 [facility] Comment on above: Performed By: #### L IPA, CMP, CRP, NAT #### [facility] [address] [place] [address] Dr. Keturah Fisher MANUAL DIFF REQ NO Normal [facility] Comment on above: Performed By: #### L IPA, CMP, CRP, NAT #### [facility] [address] [place] [address] Dr. Keturah Fisher MCH (RBC) [Entitic mass] 32.2 pg Normal 26.7-34.0 [facility] Comment on above: Performed By: #### L IPA, CMP, CRP, NAT #### [facility] [address] [place] [address] Dr. Keturah Fisher MCHC (RBC) [Mass/Vol] 33.6 g/dL Normal 29.9-35.2 [facility] Comment on above: Performed By: #### L IPA, CMP, CRP, NAT #### [facility] [address] [place] [address] Dr. Keturah Fisher MCV (RBC) [Entitic vol] 95.8 fL Normal 81.0-99.0 [facility] Comment on above: Performed By: #### L IPA, CMP, CRP, NAT #### [facility] [address] [address] [address] Keturah Fisher MONO # 0.9 103/ul Critically high 0.3-0.8 [facility] Comment on above: Performed By: #### L IPA, CMP, CRP, NAT #### [facility] [address] [place] [address] Dr. Keturah Fisher Monocytes/100 WBC (Bld) 7.6 % Normal 1.7-12.0 [facility] Comment on above: Performed By: #### L IPA, CMP, CRP, NAT #### [facility] [address] [address] [address] Keturah Fisher NEUT # 8.5 103/ul Critically high 1.4-6.5 [facility] Comment on above: Performed By: #### L IPA, CMP, CRP, NAT #### [facility] [address] [place] [address] Dr. Keturah Fisher Neutrophils/100 WBC (Bld) 69.4 % Normal 43.0-75.0 [facility] Comment on above: Performed By: #### L IPA, CMP, CRP, NAT #### [facility] [address] [address] [address] Keturah Fisher Platelet mean volume (Bld) [Entitic vol] 9.5 fL Normal 9.5-13.5 [facility] Comment on above: Performed By: #### L IPA, CMP, CRP, NAT #### [facility] [address] [place] [address] Dr. Keturah Fisher PLT 261 103/ul Normal 150-450 [facility] Comment on above: Performed By: #### L IPA, CMP, CRP, NAT #### [facility] [address] [place] [address] Dr. Keturah Fisher RBC 4.29 106/ul Normal 4.20-5.40 [facility] Comment on above: Performed By: #### L IPA, CMP, CRP, NAT #### [facility] [address] [place] [address] Dr. Keturah Fisher WBC 12.2 103/ul Critically high 4.0-11.0 [facility] Comment on above: Performed By: #### L IPA, CMP, CRP, NAT #### [facility] [address] [address] [address] Keturah Fisher LIPASEon 08-22-2021 Lipase [Catalytic activity/Vol] 419.0 U/L Critically high 73.0-393.0 [facility] Comment on above: Performed By: #### C MP, NAT, LIPA #### [facility] [address] [address] [address] Keturah Fisher PROF 14(COMP METB)on 022 Albumin [Mass/Vol] 3.9 g/dL Normal 3.4-5.0 [facility] Comment on above: Performed By: #### C MP, NAT, LIPA #### [facility] [address] [place] [address] Dr. Keturah Fisher Albumin/Globulin [Mass ratio] 1.2 {ratio} Normal [facility] Comment on above: Performed By: #### C MP, NAT, LIPA #### [facility] [address] [place] [address] Dr. Keturah Fisher ALP [Catalytic activity/Vol] 137 U/L Critically high 46-116 [facility] Comment on above: Performed By: #### C MP, NAT, LIPA #### [facility] [address] [place] [address] Dr. Keturah Fisher ALT [Catalytic activity/Vol] 22 U/L Normal 14-59 [facility] Comment on above: Performed By: #### C MP, NAT, LIPA #### [facility] [address] [place] [address] Dr. Keturah Fisher Anion gap [Moles/Vol] 12.9 mmol/L Normal [facility] Comment on above: Performed By: #### C MP, NAT, LIPA #### [facility] [address] [place] [address] Dr. Keturah Fisher AST [Catalytic activity/Vol] 20 U/L Normal 15-37 [facility] Comment on above: Performed By: #### C MP, NAT, LIPA #### [facility] [address] [address] [address] Keturah Fisher Bilirubin [Mass/Vol] 0.2 mg/dL Normal 0.2-1.0 [facility] Comment on above: Performed By: #### C MP, NAT, LIPA #### [facility] [address] [address] [address] Keturah Fisher Calcium [Mass/Vol] 9.5 mg/dL Normal 8.5-10.1 [facility] Comment on above: Performed By: #### C MP, NAT, LIPA #### [facility] [address] [address] [address] Keturah Fisher Chloride [Moles/Vol] 104 mmol/L Normal 98-107 [facility] Comment on above: Performed By: #### C MP, NAT, LIPA #### [facility] [address] [place] [address] Dr. Keturah Fisher CO2 [Moles/Vol] 23.7 mmol/L Normal 21.0-32.0 [facility] Comment on above: Performed By: #### C MP, NAT, LIPA #### [facility] [address] [place] [address] Dr. Keturah Fisher Creatinine [Mass/Vol] 0.85 mg/dL Normal 0.55-1.02 [facility] Comment on above: Performed By: #### C MP, NAT, LIPA #### [facility] [address] [place] [address] Dr. Keturah Fisher EGFR-AF MONGOLIAN >60 Normal >=60 [facility] Comment on above: Performed By: #### C MP, NAT, LIPA #### [facility] [address] [place] [address] Dr. Keturah Fisher EGFR-NON AF MONGOLIAN >60 Normal >=60 [facility] Comment on above: Performed By: #### C MP, NAT, LIPA #### [facility] [address] [place] [address] Dr. Keturah Fisher Globulin (S) [Mass/Vol] 3.3 g/dL Normal [facility] Comment on above: Performed By: #### C NAT MEDEL, LIPA #### [facility] [address] [address] [address] Keturah Fisher Glucose [Mass/Vol] 130 mg/dL Critically high 74-106 [facility] Comment on above: Performed By: #### C LIZY NAT, LIPA #### [facility] [address] [address] [address] Keturah Fisher Potassium [Moles/Vol] 3.6 mmol/L Normal 3.5-5.1 [facility] Comment on above: Performed By: #### C NAT MEDEL, LIPA #### [facility] [address] [address] [address] Keturah Fisher Protein [Mass/Vol] 7.2 g/dL Normal 6.4-8.2 [facility] Comment on above: Performed By: #### C NAT MEDEL LIPA #### [facility] [address] [address] [address] Keturah Fisher Sodium [Moles/Vol] 137 mmol/L Normal 136-145 [facility] Comment on above: Performed By: #### C NAT MEDEL LIPA #### [facility] [address] [address] [address] Keturah Fisher Urea nitrogen [Mass/Vol] 9.0 mg/dL Normal 7.0-18.0 [facility] Comment on above: Performed By: #### C NAT MEDEL LIPA #### [facility] [address] [address] [address] Keturah Fisher Urea nitrogen/Creatinine [Mass ratio] 10.6 mg/mg Normal [facility] Comment on above: Performed By: #### C NAT MEDEL LIPA #### [facility] [address] [address] [address] Keturah Fisher XR ABD FLAT UP_PA [...] TRI HANSON Date: 2021-08-22 14:54 Normal [facility] CBC AUTO DIFFon 08-13-2021 BASO # 0.1 103/ul Normal 0.0-0.1 [facility] Comment on above: Performed By: #### C BC ####[facility] [address] [address]Dr. Keturah Fisher Basophils/100 WBC (Bld) 0.6 % Normal 0.2-2.0 [facility] Comment on above: Performed By: #### C BC ####[facility] [address] [place], [place] [address]Dr. Keturah Fisher EO # 0.1 103/ul Normal 0.0-0.7 [facility] Comment on above: Performed By: #### C BC ####[facility] [address] [place], [place] [address]Dr. Keturah Fisher Eosinophils/100 WBC (Bld) 1.1 % Normal 0.9-7.0 [facility] Comment on above: Performed By: #### C BC ####[facility] [address] [place], [place] [address]Dr. Keturah Fisher Erythrocyte distribution width (RBC) [Ratio] 12.6 % Normal 11.0-15.0 [facility] Comment on above: Performed By: #### C BC ####[facility] [address] [place], [place] [address]Dr. Keturah Fisher Hematocrit (Bld) [Volume fraction] 42.3 % Normal 36.0-48.0 [facility] Comment on above: Performed By: #### C BC ####[facility] [address] [place], [place] [address]Dr. Keturah Fisher Hemoglobin (Bld) [Mass/Vol] 14.1 g/dL Normal 12.0-16.0 [facility] Comment on above: Performed By: #### C BC ####[facility] [address] [address]DrGopal Fisher IG # 0.03 10e3/ul Normal 0.00-0.03 [facility] Comment on above: Performed By: #### C BC ####[facility] [address] [address]DrGopal Fisher IG % 0.3 % Normal 0.0-0.5 [facility] Comment on above: Performed By: #### C BC ####[facility] [address] [place], [place] [address]DrGopal Fisher LYMPH # 2.4 103/ul Normal 1.2-3.8 [facility] Comment on above: Performed By: #### C BC ####[facility] [address] [address]DrGopal Fisher Lymphocytes/100 WBC (Bld) 22.3 % Normal 20.5-60.0 [facility] Comment on above: Performed By: #### C BC ####[facility] [address] [address]DrGopal Fisher MANUAL DIFF REQ NO Normal [facility] Comment on above: Performed By: #### C BC ####[facility] [address] [address]DrGopal Fisher MCH (RBC) [Entitic mass] 32.5 pg Normal 26.7-34.0 [facility] Comment on above: Performed By: #### C BC ####[facility] [address] [id number] Fisher MCHC (RBC) [Mass/Vol] 33.3 g/dL Normal 29.9-35.2 [facility] Comment on above: Performed By: #### C BC ####[facility] [address] [id number] Fisher MCV (RBC) [Entitic vol] 97.5 fL Normal 81.0-99.0 [facility] Comment on above: Performed By: #### C BC ####[facility] [address] [id number]. Keturah Phillip MONO # 1.0 103/ul Critically high 0.3-0.8 [facility] Comment on above: Performed By: #### C BC ####[facility] [address] [id number]. Elisaeli Fisher Monocytes/100 WBC (Bld) 8.7 % Normal 1.7-12.0 [facility] Comment on above: Performed By: #### C BC ####[facility] [address] [address]Dr. Keturah Fisher NEUT # 7.3 103/ul Critically high 1.4-6.5 [facility] Comment on above: Performed By: #### C BC ####[facility] [address] [place], [place] [address]Dr. Elisaeli Fisher Neutrophils/100 WBC (Bld) 67.0 % Normal 43.0-75.0 [facility] Comment on above: Performed By: #### C BC ####[facility] [address] [place], [place] [address]Dr. Keturah Phillip Platelet mean volume (Bld) [Entitic vol] 9.5 fL Normal 9.5-13.5 [facility] Comment on above: Performed By: #### C BC ####[facility] [address] [id number]. Keturah Phillip PLT 272 103/ul Normal 150-450 [facility] Comment on above: Performed By: #### C BC ####[facility] [address] [id number]. Keturah Fisher RBC 4.34 106/ul Normal 4.20-5.40 [facility] Comment on above: Performed By: #### C BC ####[facility] [address] [id number]. Keturah Fisher WBC 10.9 103/ul Normal 4.0-11.0 [facility] Comment on above: Performed By: #### C ####[facility] [address] [place], [place] [address]Tj. [address] Fisher CT ABD/PELV W CONon 08-14-19 [...] HEBERT MCPHERSON Date: 2021-08-13 17:14 Normal [facility] ER URINE PROFILEon 2 Bilirubin Ql (U) Negative Normal NEGATIVE The [facility] Comment on above: Performed By: #### C BC #### [facility] [address] [place] [address] Dr. Keturah Fisher Clarity (U) CLEAR Normal CLEAR [facility] Comment on above: Performed By: #### C BC #### [facility] [address] [place] [address] Dr. Keturah Fisher Color (U) LT. YELLOW Normal YELLOW [facility] Comment on above: Performed By: #### C BC #### [facility] [address] [place] [address] Dr. Keturah Fisher ERUAHD A micrscopic examina tion will be performed if indicated. Normal [facility] Comment on above: Performed By: #### C BC #### [facility] [address] [place] [address] Dr. Keturah Fisher Glucose Ql (U) Negative Normal NEGATIVE [facility] Comment on above: Performed By: #### C BC #### [facility] [address] [place] [address] Dr. Keturah Fisher Hemoglobin Ql (U) Negative Normal NEGATIVE [facility] Comment on above: Performed By: #### C BC #### [facility] [address] [place] [address] Dr. Keturah Fisher Ketones Ql (U) Negative Normal NEGATIVE [facility] Comment on above: Performed By: #### C BC #### [facility] [address] [place] [address] Dr. Keturah Fisher LEUKOCYTES Negative Normal NEGATIVE [facility] Comment on above: Performed By: #### C BC #### [facility] [address] [place] [address] Dr. Keturah Fisher Nitrite Ql (U) Negative Normal NEGATIVE [facility] Comment on above: Performed By: #### C BC #### [facility] [address] [place] [address] Dr. Keturah Fisher pH (U) 5.5 [pH] Normal 5-9 [facility] Comment on above: Performed By: #### C BC #### [facility] [address] [place] [address] Dr. Keturah Fisher SPEC GRAVITY 1.010 Normal 1.005-<=1. 025 [facility] Comment on above: Performed By: #### C BC #### [facility] [address] [place] [address] Dr. Keturah Fisher UA PROTEIN Negative Normal NEGATIVE/ TRACE [facility] Comment on above: Performed By: #### C BC #### [facility] [address] [place] [address] Dr. Keturah Fisher UR MICRO IND NOT INDICATED Normal [facility] Comment on above: Performed By: #### C BC #### [facility] [address] [place] [address] Dr. Keturah Fisher Urobilinogen Qn (U) 0.2 {Marizol'U}/dL Normal 0.2 - 1. 0 [facility] Comment on above: Performed By: #### C BC #### [facility] [address] [place] [address] Dr. Keturah Fisher LIPASEon 08-13-2021 Lipase [Catalytic activity/Vol] 217.0 U/L Normal 73.0-393.0 [facility] Comment on above: Performed By: #### C BC #### [facility] [address] [place] [address] Dr. Keturah Fisher PROF 14(COMP METB)on 022 Albumin [Mass/Vol] 3.9 g/dL Normal 3.4-5.0 [facility] Comment on above: Performed By: #### C BC #### [facility] [address] [place] [address] Dr. Keturah Fisher Albumin/Globulin [Mass ratio] 1.1 {ratio} Normal [facility] Comment on above: Performed By: #### C BC #### [facility] [address] [address] [address] Keturah Fisher ALP [Catalytic activity/Vol] 140 U/L Critically high 46-116 [facility] Comment on above: Performed By: #### C BC #### [facility] [address] [address] [address] Keturah Fisher ALT [Catalytic activity/Vol] 24 U/L Normal 14-59 [facility] Comment on above: Performed By: #### C BC #### [facility] [address] [address] [address] Keturah Fisher Anion gap [Moles/Vol] 11.7 mmol/L Normal [facility] Comment on above: Performed By: #### C BC #### [facility] [address] [place] [address] Dr. Keturah Fisher AST [Catalytic activity/Vol] 19 U/L Normal 15-37 [facility] Comment on above: Performed By: #### C BC #### [facility] [address] [place] [address] Dr. Keturah Fisher Bilirubin [Mass/Vol] 0.2 mg/dL Normal 0.2-1.0 [facility] Comment on above: Performed By: #### C BC #### [facility] [address] [address] [address] Keturah Fisher Calcium [Mass/Vol] 9.9 mg/dL Normal 8.5-10.1 [facility] Comment on above: Performed By: #### C BC #### [facility] [address] [address] [address] Keutrah Fisher Chloride [Moles/Vol] 105 mmol/L Normal 98-107 [facility] Comment on above: Performed By: #### C BC #### [facility] [address] [place] [address] Dr. Keturah Fisher CO2 [Moles/Vol] 29.1 mmol/L Normal 21.0-32.0 [facility] Comment on above: Performed By: #### C BC #### [facility] [address] [address] [address] Keturah Fisher Creatinine [Mass/Vol] 0.81 mg/dL Normal 0.55-1.02 [facility] Comment on above: Performed By: #### C BC #### [facility] [address] [address] [address] Keturah Fisher EGFR-AF MONGOLIAN >60 Normal >=60 [facility] Comment on above: Performed By: #### C BC #### [facility] [address] [address] [address] Keturah Fisher EGFR-NON AF MONGOLIAN >60 Normal >=60 [facility] Comment on above: Performed By: #### C BC #### [facility] [address] [place] [address] Dr. Keturah Fisher Globulin (S) [Mass/Vol] 3.4 g/dL Normal [facility] Comment on above: Performed By: #### C BC #### [facility] [address] [place] [address] Dr. Keturah Fisher Glucose [Mass/Vol] 87 mg/dL Normal 74-106 [facility] Comment on above: Performed By: #### C BC #### [facility] [address] [place] [address] Dr. Keturah Fisher Potassium [Moles/Vol] 3.8 mmol/L Normal 3.5-5.1 [facility] Comment on above: Performed By: #### C BC #### [facility] [address] [place] [address] Dr. Keturah Fisher Protein [Mass/Vol] 7.3 g/dL Normal 6.4-8.2 [facility] Comment on above: Performed By: #### C BC #### [facility] [address] [place] [address] Dr. Keturah Fisher Sodium [Moles/Vol] 142 mmol/L Normal 136-145 [facility] Comment on above: Performed By: #### C BC #### [facility] [address] [address] [address] Keturah Fisher Urea nitrogen [Mass/Vol] 11.0 mg/dL Normal 7.0-18.0 [facility] Comment on above: Performed By: #### C BC #### [facility] [address] [address] [address] Keturah Fisher Urea nitrogen/Creatinine [Mass ratio] 13.6 mg/mg Normal [facility] Comment on above: Performed By: #### C BC #### [facility] [address] [address] [address] Keturah Fisher Albumin [Mass/volume] in Ser um or PlasmaOrdered By: Keaton Barnard on 08-11-2021 Albumin [Mass/Vol] 3.4 g/dL 3.2-5.5 [facility] Basophils Auto (Bld) [#/Vol] Ordered By: Keaton Barnard on 08-11-2021 Basophils (Bld) [#/Vol] 0.1 10*3/uL 0.0-0.2 [place] Basophils/100 WBC Auto (Bld) Ordered By: Keaton Barnard on 08-11-2021 Basophils/100 WBC (Bld) 0.9 % . [place] Bilirubin Test strip Ql (U)O rdered By: Keaton Barnard on 08-11-2021 Bilirubin Ql (U) Negative Negative [facility] Blood hemoglobin measurement (mass/volume)Ordered By: Keaton Barnard on 08-11-2021 Hemoglobin (Bld) [Mass/Vol] 14.1 g/dL 11.8-15.4 [place] Blood leukocytes automated c ount (number/volume)Ordered By: Keaton Barnard on 08-11-2021 WBC (Bld) [#/Vol] 9.7 10*3/uL 4.5-11.0 [facility] Color Auto (U)Ordered By: Herminia Barnard on 08-11-2021 Color (U) Yellow Yellow [place] Creatinine and Glomerular fi ltration rate.predicted panel (S/P/Bld)Ordered By: Keaton Barnard on 08-11-2021 Creatinine [Mass/Vol] 0.95 mg/dL 0.44-1.03 [facility] Direct bilirubin measurement Ordered By: Keaton Barnard on 08-11-2021 Bilirubin.direct [Mass/Vol] mg/dL 0.0-0.4 [place] Eosinophils Auto (Bld) [#/Vo l]Ordered By: Keaton Barnard on 08-11-2021 Eosinophils (Bld) [#/Vol] 0.1 10*3/uL 0.0-0.45 [place] Eosinophils/100 WBC Auto (Bl d)Ordered By: Keaton Barnard on 08-11-2021 Eosinophils/100 WBC (Bld) 1.3 % . [place] Erythrocyte distribution wid th Auto (RBC) [Ratio]Ordered By: Keaton Barnard on 08-11-2021 Erythrocyte distribution width (RBC) [Ratio] 13.2 % 11.9-15.3 [place] Estimated glomerular filtrat ion rate (GFR) non- AmericanOrdered By: Keaton Barnard on 08-11-2021 GFR/1.73 sq M.predicted among non-blacks MDRD (S/P/Bld) [Vol rate/Area] > 60 mL/Min [place] Globulin Calc (S) [Mass/Vol] Ordered By: Keaton Barnard on 08-11-2021 Globulin (S) [Mass/Vol] 2.6 g/dL [place] Hematocrit Auto (Bld) [Volum e fraction]Ordered By: Keaton Barnard on 08-11-2021 Hematocrit (Bld) [Volume fraction] 42.1 % 34.0-46.4 [place] Ketones Auto test strip (U) [Mass/Vol]Ordered By: Keaton Barnard on 08-11-2021 Ketones (U) [Mass/Vol] Negative Negative [facility] - Chemistry and C hemistry - challengeOrdered By: Keaton Barnard on 08-11-2021 Lipase [Catalytic activity/Vol] 89.0 U/L 22-51 [place] Laboratory - CoagulationOrde red By: Keaton Barnard on 08-11-2021 PT Coag (PPP) [Time] 12.5 s 9.0-12.9 [facility] - Hematology and Cell countsOrdered By: Keaton Barnard on 08-11-2021 Nucleated RBC/100 WBC (Bld) [Ratio] 0.1 % 0-0.5 [place] Lymphocytes Auto (Bld) [#/Vo l]Ordered By: Keaton Barnard on 08-11-2021 Lymphocytes (Bld) [#/Vol] 2.5 10*3/uL 1.00-4.8 [place] Lymphocytes/100 WBC Auto (Bl d)Ordered By: Keaton Barnard on 08-11-2021 Lymphocytes/100 WBC (Bld) 25.8 % . [place] MCH Auto (RBC) [Entitic mass ]Ordered By: Keaton Barnard on 08-11-2021 MCH (RBC) [Entitic mass] 32.4 pg 24.7-34.3 [place] MCHC Auto (RBC) [Mass/Vol]Or dered By: Keaton Barnard on 08-11-2021 MCHC (RBC) [Mass/Vol] 33.4 g/dL 32.0-35.0 [facility] MCV Auto (RBC) [Entitic vol] Ordered By: Keaton Barnard on 08-11-2021 MCV (RBC) [Entitic vol] 96.8 fL 80-100 [place] Monocytes Auto (Bld) [#/Vol] Ordered By: Keaton Barnard on 08-11-2021 Monocytes (Bld) [#/Vol] 0.8 10*3/uL 0.0-0.8 [place] Monocytes/100 WBC Auto (Bld) Ordered By: Keaton Barnard on 08-11-2021 Monocytes/100 WBC (Bld) 8.7 % . [place] Neutrophils Auto (Bld) [#/Vo l]Ordered By: Keaton Barnard on 08-11-2021 Neutrophils (Bld) [#/Vol] 6.1 10*3/uL 1.8-7.7 [place] Neutrophils/100 WBC Auto (Bl d)Ordered By: Keaton Barnard on 08-11-2021 Neutrophils/100 WBC (Bld) 63.3 % . [place] Nitrite Test strip Ql (U)Ord ered By: Keaton Barnard on 08-11-2021 Nitrite Ql (U) Negative Negative [place] No Panel InformationOrdered By: Keaton Barnard on 08-11-2021 Estimated GFR () > 60 mL/Min [place] Comment on above: GFR estimated refere nce range: According to KDOQI guidelines, <60 ml/min/1.73m2 is sufficient to diagnose a patient with chronic kidney disease. Pharmacy Creatinine Clearance (Chem 62.33 [place] Platelet mean volume Auto (B ld) [Entitic vol]Ordered By: Keaton Barnard on 08-11-2021 Platelet mean volume (Bld) [Entitic vol] 8.0 fL 6.3-10.7 [place] Platelet poor plasma interna tional normalized ratio (INR) by coagulation assay (relatOrdered By: Keaton Barnard on 08-11-2021 INR Coag (PPP) [Relative time] 1.1 {INR} [place] Comment on above: INR Therapeutic Rang e [...] 08-11-2021 Platelets (Bld) [#/Vol] 252 10*3/uL 150-450 [place] Protein Auto test strip (U) [Mass/Vol]Ordered By: Keaton Barnard on 08-11-2021 Protein (U) [Mass/Vol] Negative Negative [facility] Protein [Mass/volume] in Ser um or PlasmaOrdered By: Keaton Barnard on 08-11-2021 Protein [Mass/Vol] 6.0 g/dL 6.1-7.9 [facility] RBC Auto (Bld) [#/Vol]Ordere d By: Keaton Barnard on 08-11-2021 RBC (Bld) [#/Vol] 4.35 10*6/uL 3.60-5.00 [facility] Serum or plasma alanine hughes otransferase measurement without P-5'-P (enzymatic activiOrdered By: Keaton Barnard on 08-11-2021 ALT No additional P-5'-P [Catalytic activity/Vol] 12 U/L 10-60 [place] Serum or plasma albumin/glob ulin mass ratioOrdered By: Keaton Barnard on 08-11-2021 Albumin/Globulin [Mass ratio] 1.3 {ratio} [place] Serum or plasma alkaline jaqueline sphatase measurement (enzymatic activity/volume)Ordered By: Keaton Barnard on 08-11-2021 ALP [Catalytic activity/Vol] 98 U/L 32-92 [place] Serum or plasma aspartate am inotransferase measurement (enzymatic activity/volume)Ordered By: Keaton Barnard on 08-11-2021 AST [Catalytic activity/Vol] 17 U/L 10-42 [place] Serum or plasma calcium priscilla urement (mass/volume)Ordered By: Keaton Barnard on 08-11-2021 Calcium [Mass/Vol] 9.3 mg/dL 8.2-10.2 [facility] Serum or plasma chloride daron surement (moles/volume)Ordered By: Keaton Barnard on 08-11-2021 Chloride [Moles/Vol] 104 mmol/L 95-114 [facility] Serum or plasma glucose priscilla urement (mass/volume)Ordered By: Keaton Barnard on 08-11-2021 Glucose [Mass/Vol] 95 mg/dL 70-100 [facility] Comment on above: ADA recommended refe rence range Random Glucose Reference Range is dependent on time and content of last meal. Glucose of more than 200 mg/dL in a nonstressed, ambulatory subject supports the diagnosis of Diabetes Mellitus. Serum or plasma non-glucuron idated bilirubin measurement (mass/volume)Ordered By: Keaton Barnard on 08-11-2021 Bilirubin.indirect [Mass/Vol] TNP [place] Comment on above: Test not performed Serum or plasma potassium me asurement (moles/volume)Ordered By: Keaton Barnrad on 08-11-2021 Potassium [Moles/Vol] 3.8 mmol/L 3.5-5.1 [facility] Serum or plasma sodium measu rement (moles/volume)Ordered By: Keaton Barnard on 08-11-2021 Sodium [Moles/Vol] 138 mmol/L 136-146 [facility] Serum or plasma total biliru bin measurement (mass/volume)Ordered By: Keaton Barnard on 08-11-2021 Bilirubin [Mass/Vol] 0.3 mg/dL 0.3-1.2 [facility] Serum or plasma total carbon dioxide measurement (moles/volume)Ordered By: Keaton Barnard on 08-11-2021 CO2 [Moles/Vol] 24.8 mmol/L 22.0-30.0 [facility] Serum or plasma urea nitroge n measurement (mass/volume)Ordered By: Keaton Barnard on 08-11-2021 Urea nitrogen [Mass/Vol] 10 mg/dL 9-23 [place] Specific gravity Auto test s trip (U) [Rel density]Ordered By: Keaton Barnard on 08-11-2021 Specific gravity (U) [Rel density] 1.028 1.001-1.03 0 [place] Troponin I.cardiac [Mass/vol ume] in Serum or Plasma by High sensitivity methodOrdered By: Keaton Barnard on 08-11-2021 Troponin I.cardiac High sensitivity method [Mass/Vol] 3 pg/mL 0-15 [place] Urine clarity by refractomet ry automatedOrdered By: Keaton Barnard on 08-11-2021 Clarity Refractometry automated (U) Clear Clear [place] Urine glucose measurement by automated test strip (mass/volume)Ordered By: Keaton Barnard on 08-11-2021 Glucose Auto test strip (U) [Mass/Vol] Normal mg/dL Normal [place] Urine hemoglobin detection b y automated test stripOrdered By: Keaton Barnard on 08-11-2021 Hemoglobin Auto test strip Ql (U) Negative Negative [place] Urine leukocyte esterase det ection by automated test stripOrdered By: Keaton Barnard on 08-11-2021 Leukocyte esterase Auto test strip Ql (U) Negative Negative [place] Urobilinogen Auto test strip (U) [Mass/Vol]Ordered By: Keaton Barnard on 08-11-2021 Urobilinogen (U) [Mass/Vol] Normal mg/dL Normal [place] pH Auto test strip (U)Ordere d By: Keaton Barnard on 08-11-2021 pH (U) 5.0 [pH] 5.0-9.0 [place] AMYLASEon 07-31-2021 Amylase [Catalytic activity/Vol] 158 U/L Critically high 25-115 [facility] Comment on above: Performed By: #### L IPA, CMP, CRP, NAT #### [facility] [address], [place] [address] Dr. Keturah Fisher CBC AUTO DIFFon 07-31-2021 BASO # 0.1 103/ul Normal 0.0-0.1 [facility] [place] Comment on above: Performed By: #### C BC ####[facility] [address] [place] [address]DrGopal Fisher Basophils/100 WBC (Bld) 0.7 % Normal 0.2-2.0 [facility] [place] Comment on above: Performed By: #### C BC ####[facility] [address] [place] [address]Dr. Keturah Fisher EO # 0.1 103/ul Normal 0.0-0.7 [facility] Comment on above: Performed By: #### C BC ####[facility] [address] [place] [id number]. Keturah Fisher Eosinophils/100 WBC (Bld) 0.9 % Normal 0.9-7.0 [facility] Comment on above: Performed By: #### C BC ####[facility] [address] [place] [address]Dr. Keturah Fisher Erythrocyte distribution width (RBC) [Ratio] 12.7 % Normal 11.0-15.0 [facility] Comment on above: Performed By: #### C BC ####[facility] [address] [place] [id number]. Keturah Fisher Hematocrit (Bld) [Volume fraction] 43.2 % Normal 36.0-48.0 [facility] Comment on above: Performed By: #### C BC ####[facility] [address] [place] [id number] Fisher Hemoglobin (Bld) [Mass/Vol] 14.5 g/dL Normal 12.0-16.0 [facility] Comment on above: Performed By: #### C BC ####[facility] [address] [place] [id number]. Keturah Fisher IG # 0.04 10e3/ul Critically high 0.00-0.03 [facility] Comment on above: Performed By: #### C BC ####[facility] [address] [place] [address]Dr. Keturah Fisher IG % 0.4 % Normal 0.0-0.5 [facility] Comment on above: Performed By: #### C BC ####[facility] [address] [place] [address]Dr. Keturah Fisher LYMPH # 2.8 103/ul Normal 1.2-3.8 [facility] Comment on above: Performed By: #### C BC ####[facility] [address] [place] [address]Dr. Keturah Fisher Lymphocytes/100 WBC (Bld) 24.9 % Normal 20.5-60.0 [facility] Comment on above: Performed By: #### C BC ####[facility] [address] [place] [address]Dr. Keturah Fisher MANUAL DIFF REQ NO Normal [facility] Comment on above: Performed By: #### C BC ####[facility] [address] [place] [address]Dr. Keturah Fisher MCH (RBC) [Entitic mass] 32.7 pg Normal 26.7-34.0 [facility] Comment on above: Performed By: #### C BC ####[facility] [address] [place] [address]Dr. Keturah Fisher MCHC (RBC) [Mass/Vol] 33.6 g/dL Normal 29.9-35.2 [facility] Comment on above: Performed By: #### C BC ####[facility] [address] [place] [address]Dr. Keturah Fisher MCV (RBC) [Entitic vol] 97.5 fL Normal 81.0-99.0 [facility] Comment on above: Performed By: #### C BC ####[facility] [address] [place] [id number]. Keturah Fisher MONO # 0.9 103/ul Critically high 0.3-0.8 [facility] Comment on above: Performed By: #### C BC ####[facility] [address] [place] [id number]. Keturah Fisher Monocytes/100 WBC (Bld) 8.1 % Normal 1.7-12.0 [facility] Comment on above: Performed By: #### C BC ####[facility] [address]qcsc[address] [place] [id number]. Keturah Fisher NEUT # 7.3 103/ul Critically high 1.4-6.5 [facility] Comment on above: Performed By: #### C BC ####[facility] [address] [place] [address]Dr. Keturah Fisher Neutrophils/100 WBC (Bld) 65.0 % Normal 43.0-75.0 [facility] Comment on above: Performed By: #### C BC ####[facility] [address] [place] [id number]. Keturah Fisher Platelet mean volume (Bld) [Entitic vol] 10.0 fL Normal 9.5-13.5 [facility] Comment on above: Performed By: #### C BC ####[facility] [address] [place] [id number]. Keturah Fisher PLT 245 103/ul Normal 150-450 [facility] Comment on above: Performed By: #### C BC ####[facility] [address] [place] [id number]. Keturah Fisher RBC 4.43 106/ul Normal 4.20-5.40 [facility] Comment on above: Performed By: #### C BC ####[facility] [address] [place] [id number]. Elisaeli Phillip WBC 11.2 103/ul Critically high 4.0-11.0 [facility] [place] Comment on above: Performed By: #### C BC ####[facility] [address] [place] [address]Dr. Keturah Fisher LIPASEon 07-31-2021 Lipase [Catalytic activity/Vol] 439.0 U/L Critically high 73.0-393.0 [facility] Comment on above: Performed By: #### L IPA, CMP, CRP, NAT #### [facility] [address] [place] [address] [address] Keturah Fisher PROF 14(COMP METB)on 022 Albumin [Mass/Vol] 3.6 g/dL Normal 3.4-5.0 [facility] Comment on above: Performed By: #### L IPA, CMP, CRP, NAT #### [facility] [address] [place] [address] Dr. Keturah Fisher Albumin/Globulin [Mass ratio] 1.1 {ratio} Normal [facility] Comment on above: Performed By: #### L IPA, CMP, CRP, NAT #### [facility] [address] [place] [address] Dr. Keturah Fisher ALP [Catalytic activity/Vol] 119 U/L Critically high 46-116 [facility] Comment on above: Performed By: #### L IPA, CMP, CRP, NAT #### [facility] [address] [place] [address] Dr. Keturah Fisher ALT [Catalytic activity/Vol] 20 U/L Normal 14-59 [facility] Comment on above: Performed By: #### L IPA, CMP, CRP, NAT #### [facility] [address] [place] [address] Dr. Keturah Fisher Anion gap [Moles/Vol] 13.4 mmol/L Normal [facility] Comment on above: Performed By: #### L IPA, CMP, CRP, NAT #### [facility] [address] [place] [address] Dr. Keturah Fisher AST [Catalytic activity/Vol] 16 U/L Normal 15-37 [facility] Comment on above: Performed By: #### L IPA, CMP, CRP, NAT #### [facility] [address] [place] [address] [address] Keturah Fisher Bilirubin [Mass/Vol] 0.1 mg/dL Critically low 0.2-1.0 [facility] Comment on above: Performed By: #### L IPA, CMP, CRP, NAT #### [facility] [address] [place] [address] [address] Keturah Fisher Calcium [Mass/Vol] 8.9 mg/dL Normal 8.5-10.1 [facility] Comment on above: Performed By: #### L IPA, CMP, CRP, NAT #### [facility] [address] [place] [address] [address] Keturah Fisher Chloride [Moles/Vol] 106 mmol/L Normal 98-107 [facility] Comment on above: Performed By: #### L IPA, CMP, CRP, NAT #### [facility] [address] [place] [address] Dr. Keturah Fisher CO2 [Moles/Vol] 25.4 mmol/L Normal 21.0-32.0 [facility] Comment on above: Performed By: #### L IPA, CMP, CRP, NAT #### [facility] [address] [place] [address] [address] Keturah Fisher Creatinine [Mass/Vol] 0.73 mg/dL Normal 0.55-1.02 [facility] Comment on above: Performed By: #### L IPA, CMP, CRP, NAT #### [facility] [address] [place] [address] [address] Keturah Fisher EGFR-AF MONGOLIAN >60 Normal >=60 [facility] [place] Comment on above: Performed By: #### L IPA, CMP, CRP, NAT #### [facility] [address] [place] [address] [address] Keturah Fisher EGFR-NON AF MONGOLIAN >60 Normal >=60 [facility] Comment on above: Performed By: #### L IPA, CMP, CRP, NAT #### [facility] [address] [place] [address] [address] Keturah Fisher Globulin (S) [Mass/Vol] 3.2 g/dL Normal [facility] Comment on above: Performed By: #### L IPA, CMP, CRP, NAT #### [facility] [address] [place] [address] [address] Keturah Fisher Glucose [Mass/Vol] 105 mg/dL Normal 74-106 [facility] Comment on above: Performed By: #### L IPA, CMP, CRP, NAT #### [facility] [address] [place] [address] [address] Keturah Fisher Potassium [Moles/Vol] 3.8 mmol/L Normal 3.5-5.1 [facility] Comment on above: Performed By: #### L IPA, CMP, CRP, NAT #### [facility] [address] [place] [address] [address] Keturah Fisher Protein [Mass/Vol] 6.8 g/dL Normal 6.4-8.2 [facility] Comment on above: Performed By: #### L IPA, CMP, CRP, NAT #### [facility] [address] [place] [address] [address] Keturah Fisher Sodium [Moles/Vol] 141 mmol/L Normal 136-145 [facility] Comment on above: Performed By: #### L IPA, CMP, CRP, NAT #### [facility] [address] [place] [address] [address] Keturah Fisher Urea nitrogen [Mass/Vol] 12.0 mg/dL Normal 7.0-18.0 [facility] Comment on above: Performed By: #### L IPA, CMP, CRP, NAT #### [facility] [address] [place] [address] Dr. Keturah Fisher Urea nitrogen/Creatinine [Mass ratio] 16.4 mg/mg Normal [facility] Comment on above: Performed By: #### L IPA, CMP, CRP, NAT #### [facility] [address] [place] [address] [address] Keturah Fisher TROPONIN, HIGH SENSITIVITYon 07-31-2021 HSTROP 4.2 pg/mL Normal 4.0-51.3 [facility] Comment on above: Result Comment: CUT- OFF POINTS HAVE BEEN ESTABLISHED BASED ON THE FOURTH UNIVERSAL DEFINITIONS OF MYOCARDIAL INFARCTION. THE UPPER REFERENCE LIMIT (URL) OF TROPONIN, DEFINED THE 99TH PERCENTILE OF cTnI DISTRIBUTION IN A REFERENCE POPULATION, HAS BEEN CONFIRMED THE DECISION THRESHOLD FOR PA DIAGNOSIS. Performed By: #### L IPA, CMP, CRP, NAT #### [facility] [address] [place] [address] [address] Keturah Fisher AMYLASEon 07-19-2021 Amylase [Catalytic activity/Vol] 198 U/L Critically high 25-115 [facility] Comment on above: Performed By: #### A MY, LIPA, CMP ####[facility] [address] [place] [id number] Fisher CBC AUTO DIFFon 07-19-2021 BASO # 0.1 103/ul Normal 0.0-0.1 [facility] Comment on above: Performed By: #### C BC ####[facility] [address] [place] [address]DrGopal Fisher Basophils/100 WBC (Bld) 0.7 % Normal 0.2-2.0 [facility] Comment on above: Performed By: #### C BC ####[facility] [address] [place] [address]DrGopal Fisher EO # 0.1 103/ul Normal 0.0-0.7 [facility] Comment on above: Performed By: #### C BC ####[facility] [address] [place] [address]DrGopal Fisher Eosinophils/100 WBC (Bld) 1.0 % Normal 0.9-7.0 [facility] Comment on above: Performed By: #### C BC ####[facility] [address] [place] [address]DrGopal Fisher Erythrocyte distribution width (RBC) [Ratio] 12.5 % Normal 11.0-15.0 [facility] Comment on above: Performed By: #### C BC ####[facility] [address] [place] [address]DrGopal Fisher Hematocrit (Bld) [Volume fraction] 42.4 % Normal 36.0-48.0 [facility] Comment on above: Performed By: #### C BC ####[facility] [address] [place] [address]Dr. Keturah Fisher Hemoglobin (Bld) [Mass/Vol] 14.2 g/dL Normal 12.0-16.0 [facility] Comment on above: Performed By: #### C BC ####[facility] [address] [place] [address]Dr. Keturah Fisher IG # 0.03 10e3/ul Normal 0.00-0.03 [facility] Comment on above: Performed By: #### C BC ####[facility] [address] [place] [address]Dr. Keturah Fisher IG % 0.3 % Normal 0.0-0.5 [facility] Comment on above: Performed By: #### C BC ####[facility] [address] [place], [place] [address]Dr. Keturah Fisher LYMPH # 3.0 103/ul Normal 1.2-3.8 [facility] Comment on above: Performed By: #### C BC ####[facility] [address] [place] [address]Dr. Keturah Fisher Lymphocytes/100 WBC (Bld) 29.5 % Normal 20.5-60.0 [facility] Comment on above: Performed By: #### C BC ####[facility] [address]kg[address] [place] [address]Dr. Keturah Fisher MANUAL DIFF REQ NO Normal [facility] Comment on above: Performed By: #### C BC ####[facility] [address] [place] [address]Dr. Keturah Fisher MCH (RBC) [Entitic mass] 32.8 pg Normal 26.7-34.0 [facility] Comment on above: Performed By: #### C BC ####[facility] [address] [place], [place] [address]Dr. Keturah Fisher MCHC (RBC) [Mass/Vol] 33.5 g/dL Normal 29.9-35.2 [facility] Comment on above: Performed By: #### C BC ####[facility] [address]ucg[address] [place] [id number]. Keturah Fisher MCV (RBC) [Entitic vol] 97.9 fL Normal 81.0-99.0 [facility] Comment on above: Performed By: #### C BC ####[facility] [address]fp[address] [place] [id number]. Keturah Fisher MONO # 1.0 103/ul Critically high 0.3-0.8 [facility] Comment on above: Performed By: #### C BC ####[facility] V[address]curme[address]ql[address] [place] [id number]. Keturah Phillip Monocytes/100 WBC (Bld) 9.3 % Normal 1.7-12.0 [facility] Comment on above: Performed By: #### C BC ####[facility] [address] [place], [place] [address]Dr. Keturah Fisher NEUT # 6.1 103/ul Normal 1.4-6.5 [facility] Comment on above: Performed By: #### C BC ####[facility] [address] [place], [place] [address]Dr. Keturah Phillip Neutrophils/100 WBC (Bld) 59.2 % Normal 43.0-75.0 [facility] Comment on above: Performed By: #### C BC ####[facility] [address] [place], [place] [address]Dr. Keturah Phillip Platelet mean volume (Bld) [Entitic vol] 9.8 fL Normal 9.5-13.5 [facility] Comment on above: Performed By: #### C BC ####[facility] [address] [place] [id number]. Keturah Phillip PLT 249 103/ul Normal 150-450 [facility] Comment on above: Performed By: #### C BC ####[facility] Fr[address]rbae[address] [place] [phone]. Keturah Fisher RBC 4.33 106/ul Normal 4.20-5.40 [facility] Comment on above: Performed By: #### C BC ####[facility] [address]zmsgd[address] [place] [address]Dr. Keturah Fisher WBC 10.2 103/ul Normal 4.0-11.0 [facility] Comment on above: Performed By: #### C BC ####[facility] [address]kw[address] [place] [address]Dr. Keturah Fisher LIPASEon 07-19-2021 Lipase [Catalytic activity/Vol] 554.0 U/L Critically high 73.0-393.0 [facility] Comment on above: Performed By: #### A MY LIPA, CMP ####[facility] V[address]qrvexxwo[address] [place] [address]Dr. Keutrah Fisher PROF 14(COMP METB)on 022 Albumin [Mass/Vol] 4.0 g/dL Normal 3.4-5.0 [facility] Comment on above: Performed By: #### A MY LIPA, CMP ####[facility] [address] [place], [place] [address]Dr. Keturah Fisher Albumin/Globulin [Mass ratio] 1.1 {ratio} Normal [facility] Comment on above: Performed By: #### A MY LIPA, CMP ####[facility] [address] [place], [place] [address]Dr. Keturah Fisher ALP [Catalytic activity/Vol] 141 U/L Critically high 46-116 [facility] Comment on above: Performed By: #### A MY, LIPA, CMP ####[facility] [address] [place] [address]Dr. Keturah Fisher ALT [Catalytic activity/Vol] 21 U/L Normal 14-59 [facility] Comment on above: Performed By: #### A MY, LIPA, CMP ####[facility] [address] [address]Dr. Keturah Fisher Anion gap [Moles/Vol] 10.3 mmol/L Normal [facility] Comment on above: Performed By: #### A MY, LIPA, CMP ####[facility] [address] [place] [address]Dr. Keturah Fisher AST [Catalytic activity/Vol] 22 U/L Normal 15-37 [facility] Comment on above: Performed By: #### A AMANDEEP LIPA, CMP ####[facility] [address] [place], [place] [address]Dr. Keturah Fisher Bilirubin [Mass/Vol] 0.3 mg/dL Normal 0.2-1.0 [facility] Comment on above: Performed By: #### A MY LIPA, CMP ####[facility] [address] [place], [place] [address]Dr. Keturah Fisher Calcium [Mass/Vol] 9.9 mg/dL Normal 8.5-10.1 The [facility] Comment on above: Performed By: #### A MY LIPA, CMP ####[facility] [address] [place], [place] [address]Dr. Keturah Fisher Chloride [Moles/Vol] 103 mmol/L Normal 98-107 [facility] Comment on above: Performed By: #### A MY LIPA, CMP ####[facility] [address] [place], [place] [address]Dr. Keturah Fisher CO2 [Moles/Vol] 27.6 mmol/L Normal 21.0-32.0 The [facility] Comment on above: Performed By: #### A MY LIPA, CMP ####[facility] [address] [place], [place] [address]Dr. Keturah Fisher Creatinine [Mass/Vol] 0.93 mg/dL Normal 0.55-1.02 [facility] Comment on above: Performed By: #### A MY LIPA, CMP ####[facility] Cl[address]wgoxpg[address] [place], [place] [address]Dr. Keturah Fisher EGFR-AF MONGOLIAN >60 Normal >=60 The [facility] Comment on above: Performed By: #### A MY, LIPA, CMP ####[facility] K[address] [place], [place] [address]Dr. Keturah Fisher EGFR-NON AF MONGOLIAN >60 Normal >=60 [facility] Comment on above: Performed By: #### A AMANDEEP LIPA, CMP ####[facility] [address] [place] [place] [address]Dr. Keturah Fisher Globulin (S) [Mass/Vol] 3.5 g/dL Normal [facility] Comment on above: Performed By: #### A AMANDEEP LIPA, CMP ####[facility] [address] [place] [address]Dr. Keturah Fisher Glucose [Mass/Vol] 99 mg/dL Normal 74-106 [facility] Comment on above: Performed By: #### A AMANDEEP LIPA, CMP ####[facility] [address] [place], [place] [address]Dr. Keturah Fisher Potassium [Moles/Vol] 3.9 mmol/L Normal 3.5-5.1 [facility] Comment on above: Performed By: #### A AMANDEEP LIPA, CMP ####[facility] [address] [place], [place] [address]Dr. Keturah Fisher Protein [Mass/Vol] 7.5 g/dL Normal 6.4-8.2 [facility] Comment on above: Performed By: #### A AMANDEEP LIPA, CMP ####[facility] Q[address] [place], [place] [address]Dr. Keturah Fisher Sodium [Moles/Vol] 137 mmol/L Normal 136-145 [facility] Comment on above: Performed By: #### A MAANDEEP LIPA, CMP ####[facility] [address] [place], [place] [address]Dr. Keturah Fisher Urea nitrogen [Mass/Vol] 9.0 mg/dL Normal 7.0-18.0 [facility] Comment on above: Performed By: #### A AMANDEEP LIPA, CMP ####[facility] [address] [place], [place] [address]Dr. Keturah Fisher Urea nitrogen/Creatinine [Mass ratio] 9.7 mg/mg Normal [facility] Comment on above: Performed By: #### A AMANDEEP LIPA, CMP ####[facility] Rs[address] [place], [place] [address]Dr. Keturah Fisher XR ABD FLAT UP_PA Jorje [...] PERDOMO Date: 2021-07-19 16:57 Normal [facility] COVID Quick Testingon 2021 Result Positive Vigoda Other ANES Marcial 11-13-2020 ANES POST HNO ID: [id number] Author: Ion Avila MD Service: Anesthesiology Author [...] 13, 2020 TIME: 12:38 PM PAGER/CONTACT #: [phone] [facility] NURSING PROGon 11-13-2020 NURSING PROG HNO ID: [id number] Author: Viky Nguyen RN Service: Nursing Author [...] None Electronically Signed By: Yaquelin Nguyen RN [facility] NURSING PROG HNO ID: [id number] Author: Landy Smith RN Service: Nursing Author [...] By: Landy Smith RN In Department: GASTROENTEROLOGY [facility] Radha 11-07-2020 [facility] Telephone ([facility]) ----- CHIOMA RAINEY ([id number]) 1970 F Date Time Provider Department 11/07/20 [...] have family/friend present for procedure? 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 Any barriers to Patient learning: Patient/Patient Order Management Specialist responded appropriately on phone. Type of [...] Status:Closed by NASREEN GORMAN on 11/07/20 Normal [facility] Amylaseon 03-26-2020 Amylase [Catalytic activity/Vol] 185 U/L High 28 - 100 U/L [place] CBC Auto Differentialon 03-09 Basophils (Bld) [#/Vol] 0.06 10*3/uL [place] Basophils/100 WBC (Bld) 1 % 0 - 2 % [place] Differential Type NOT REPORTED [place] Eosinophils (Bld) [#/Vol] 0.12 10*3/uL [place] Eosinophils/100 WBC (Bld) 1 % 1 - 4 % [place] Erythrocyte distribution width (RBC) [Ratio] 12.4 % 11.8 - 14.4 % [place] Hematocrit (Bld) [Volume fraction] 40.6 % 36.3 - 47.1 % [place] Hemoglobin (Bld) [Mass/Vol] 13.7 g/dL 11.9 - 15.1 g/dL [place] Immature granulocytes (Bld) [#/Vol] 0 % 0 [place] Immature granulocytes (Bld) [#/Vol] 10*3/uL [place] Lymphocytes (Bld) [#/Vol] 2.62 10*3/uL [place] Lymphocytes/100 WBC (Bld) 27 % 24 - 43 % [place] MCH (RBC) [Entitic mass] 33.4 pg 25.2 - 33.5 pg [place] MCHC (RBC) [Mass/Vol] 33.7 g/dL 28.4 - 34.8 g/dL [place] MCV (RBC) [Entitic vol] 99.0 fL 82.6 - 102.9 fL [place] Monocytes (Bld) [#/Vol] 0.78 10*3/uL [place] Monocytes/100 WBC (Bld) 8 % 3 - 12 % [place] Platelet mean volume (Bld) [Entitic vol] 9.4 fL 8.1 - 13.5 fL [place] Platelets (Bld) [#/Vol] 235 10*3/uL [place] Platelets (Bld) [#/Vol] NOT REPORTED [place] RBC (Bld) [#/Vol] 4.10 10*6/uL 3.95 - 5.11 m/uL [place] RBC morphology finding Nom (Bld) NOT REPORTED [place] Segmented neutrophils/100 WBC (Bld) 63 % 36 - 65 % [place] Segs Absolute 5.96 [place] WBC (Bld) [#/Vol] 9.6 10*3/uL [place] WBC (Bld) [#/Vol] 0.0 10*3/uL 0.0 per 100 WBC [place] WBC Morphology NOT REPORTED [place] Comprehensive Metabolic Pane l w/ Reflex to MGon 03-26-2020 Albumin [Mass/Vol] 4.3 g/dL 3.5 - 5.2 g/dL [place] Albumin/Globulin [Mass ratio] 1.7 {ratio} [place] ALP [Catalytic activity/Vol] 117 U/L High 35 - 104 U/L [place] ALT [Catalytic activity/Vol] 11 U/L 5 - 33 U/L [place] Anion gap [Moles/Vol] 9 mmol/L 9 - 17 mmol/L [place] AST [Catalytic activity/Vol] 18 U/L <32 [place] Bilirubin Ql (U) 0.15 mg/dL Low 0.3 - 1.2 mg/dL [place] Bun/Cre Ratio 12 [place] Calcium [Mass/Vol] 9.7 mg/dL 8.6 - 10. 4 mg/dL [place] Chloride [Moles/Vol] 102 mmol/L 98 - 10 7 mmol/L [place] CO2 [Moles/Vol] 25 mmol/L 20 - 31 mmol/L [place] Creatinine [Mass/Vol] 0.74 mg/dL 0.5 - 0.9 mg/dL [place] GFR >60 >60 mL/min [place] GFR Non- >60 >60 mL/min [place] Glucose [Mass/Vol] 94 mg/dL 70 - 99 mg/dL [place] Potassium [Moles/Vol] 4.2 mmol/L 3.7 - 5.3 mmol/L [place] Protein [Mass/Vol] 6.8 g/dL 6.4 - 8.3 g/dL [place] Sodium [Moles/Vol] 136 mmol/L 135 - 144 mmol/L [place] Urea nitrogen [Mass/Vol] 9 mg/dL 6 - 20 mg/dL [place] Lactic Acidon 03-26-2020 Lactate [Moles/Vol] 1.3 mmol/L 0.5 - 2. 2 mmol/L [place] Lipaseon 03-26-2020 Interpretation and review of laboratory results Abnormal [place] Lipase [Catalytic activity/Vol] 225 U/L Critically high 13 - 60 U/L [place] Metabolic Panelon 03-26-2020 GFR/1.73 sq M predicted among non-blacks MDRD (S/P/Bld) [Vol rate/Area] [place] Comment on above: Average GFR for 50-5 9 years old: 93 mL/min/1.73sq m Chronic Kidney Disease: <60 mL/min/1.73sq m Kidney failure: <15 mL/min/1.73sq m eGFR calculated using average adult body mass. Additional eGFR calculator available at: http://www.[employer]/multiple_crcl_2012.htm Stage 1: Some kidney damage normal GFR Stage 2: Mild kidney damage GFR 60-89 Stage 3: Moderate kidney damage GFR 30-59 Stage 4: Severe kidney damage GFR 15-29 Stage 5: Severe kidney damage GFR <15 ESRD - chronic treatment by dialysis or transplant Otheron 03-26-2020 Interpretation and review of laboratory results Abnormal [place] SPECIMEN REJECTIONon 021 Ordered Test CDP [place], [place] Reason for Rejection Unable to perform testing: Specimen clotted. [place] Specimen source Nom (Unsp spec) .BLOOD [place] - NOT REPORTED [place] Urinalysis, reflex to micros copicon 03-26-2020 Bilirubin Urine Negative NEGATIVE [place] Color, UA YELLOW YELLOW [place] Glucose, Ur Negative NEGATIVE [place] Ketones Ql (U) Negative NEGATIVE [place] Leukocyte esterase Test strip Ql (U) Negative NEGATIVE [place] Nitrite, Urine Negative NEGATIVE [place] pH, UA 5.5 [place] Protein (U) [Mass/Vol] Negative NEGATIVE [place] Specific [place], UA 1.010 [place] Turbidity UA CLEAR CLEAR [place] Urinalysis Comments NOT REPORTED [place] Urine Hgb Negative NEGATIVE [place] Urobilinogen, Urine Normal Normal [place] CBC auto differentialon 08-07 Basophils (Bld) [#/Vol] 0.04 10*3/uL [place] Basophils/100 WBC (Bld) 1 % 0 - 2 % [place] Differential Type NOT REPORTED [place] Eosinophils (Bld) [#/Vol] 0.10 10*3/uL [place] Eosinophils/100 WBC (Bld) 1 % 1 - 4 % [place] Erythrocyte distribution width (RBC) [Ratio] 13.0 % 11.8 - 14.4 % [place] Hematocrit (Bld) [Volume fraction] 35.2 % Low 36.3 - 47.1 % [place] Hemoglobin (Bld) [Mass/Vol] 11.7 g/dL Low 11.9 - 15.1 g/dL [place] Immature granulocytes (Bld) [#/Vol] 10*3/uL [place] Immature granulocytes (Bld) [#/Vol] 0 % 0 [place] Interpretation and review of laboratory results Abnormal [place] Lymphocytes (Bld) [#/Vol] 1.87 10*3/uL [place] Lymphocytes/100 WBC (Bld) 22 % Low 24 - 43 % [place] MCH (RBC) [Entitic mass] 32.5 pg 25.2 - 33.5 pg [place] MCHC (RBC) [Mass/Vol] 33.2 g/dL 28.4 - 34.8 g/dL [place] MCV (RBC) [Entitic vol] 97.8 fL 82.6 - 102.9 fL [place] Monocytes (Bld) [#/Vol] 0.86 10*3/uL [place] Monocytes/100 WBC (Bld) 10 % 3 - 12 % [place] Platelet mean volume (Bld) [Entitic vol] 9.8 fL 8.1 - 13.5 fL [place] Platelets (Bld) [#/Vol] NOT REPORTED [place] Platelets (Bld) [#/Vol] 178 10*3/uL [place] RBC (Bld) [#/Vol] 3.60 10*6/uL Low 3.95 - 5.11 m/uL [place] RBC morphology finding Nom (Bld) NOT REPORTED [place] Segmented neutrophils/100 WBC (Bld) 66 % High 36 - 65 % [place] Segs Absolute 5.53 [place] WBC (Bld) [#/Vol] 0.0 10*3/uL 0.0 per 100 WBC [place] WBC (Bld) [#/Vol] 8.4 10*3/uL [place] WBC Morphology NOT REPORTED [place] Lipaseon 08-25-2019 Lipase [Catalytic activity/Vol] 42 U/L 13 - 60 U/L [place] CBC auto differentialon 08-07 Basophils (Bld) [#/Vol] 0.04 10*3/uL [place] Basophils/100 WBC (Bld) 1 % 0 - 2 % [place] Differential Type NOT REPORTED [place] Eosinophils (Bld) [#/Vol] 0.08 10*3/uL [place] Eosinophils/100 WBC (Bld) 1 % 1 - 4 % [place] Erythrocyte distribution width (RBC) [Ratio] 12.9 % 11.8 - 14.4 % [place] Hematocrit (Bld) [Volume fraction] 35.9 % Low 36.3 - 47.1 % [place] Hemoglobin (Bld) [Mass/Vol] 11.9 g/dL 11.9 - 15.1 g/dL [place] Immature granulocytes (Bld) [#/Vol] 0 % 0 [place] Immature granulocytes (Bld) [#/Vol] 0.03 10*3/uL [place] Interpretation and review of laboratory results Abnormal [place] Lymphocytes (Bld) [#/Vol] 1.79 10*3/uL [place] Lymphocytes/100 WBC (Bld) 22 % Low 24 - 43 % [place] MCH (RBC) [Entitic mass] 32.3 pg 25.2 - 33.5 pg [place] MCHC (RBC) [Mass/Vol] 33.1 g/dL 28.4 - 34.8 g/dL [place] MCV (RBC) [Entitic vol] 97.6 fL 82.6 - 102.9 fL [place] Monocytes (Bld) [#/Vol] 0.75 10*3/uL [place] Monocytes/100 WBC (Bld) 9 % 3 - 12 % [place] Platelet mean volume (Bld) [Entitic vol] 10.1 fL 8.1 - 13.5 fL [place] Platelets (Bld) [#/Vol] 176 10*3/uL [place] Platelets (Bld) [#/Vol] NOT REPORTED [place] RBC (Bld) [#/Vol] 3.68 10*6/uL Low 3.95 - 5.11 m/uL [place] RBC morphology finding Nom (Bld) NOT REPORTED [place] Segmented neutrophils/100 WBC (Bld) 67 % High 36 - 65 % [place] Segs Absolute 5.61 [place] WBC (Bld) [#/Vol] 0.0 10*3/uL 0.0 per 100 WBC [place] WBC (Bld) [#/Vol] 8.3 10*3/uL [place] WBC Morphology NOT REPORTED [place] Lipaseon 08-24-2019 Interpretation and review of laboratory results Abnormal [place] Lipase [Catalytic activity/Vol] 69 U/L High 13 - 60 U/L [place] CBC auto differentialon 08-07 Basophils (Bld) [#/Vol] 0.05 10*3/uL [place] Basophils/100 WBC (Bld) 1 % 0 - 2 % [place] Differential Type NOT REPORTED [place] Eosinophils (Bld) [#/Vol] 0.13 10*3/uL [place] Eosinophils/100 WBC (Bld) 2 % 1 - 4 % [place] Erythrocyte distribution width (RBC) [Ratio] 13.2 % 11.8 - 14.4 % [place] Hematocrit (Bld) [Volume fraction] 36.7 % 36.3 - 47.1 % [place] Hemoglobin (Bld) [Mass/Vol] 11.8 g/dL Low 11.9 - 15.1 g/dL [place] Immature granulocytes (Bld) [#/Vol] 0 % 0 [place] Immature granulocytes (Bld) [#/Vol] 10*3/uL [place] Interpretation and review of laboratory results Abnormal [place] Lymphocytes (Bld) [#/Vol] 2.39 10*3/uL [place] Lymphocytes/100 WBC (Bld) 28 % 24 - 43 % [place] MCH (RBC) [Entitic mass] 32.1 pg 25.2 - 33.5 pg [place] MCHC (RBC) [Mass/Vol] 32.2 g/dL 28.4 - 34.8 g/dL [place] MCV (RBC) [Entitic vol] 99.7 fL 82.6 - 102.9 fL [place] Monocytes (Bld) [#/Vol] 0.77 10*3/uL [place] Monocytes/100 WBC (Bld) 9 % 3 - 12 % [place] Platelet mean volume (Bld) [Entitic vol] 10.1 fL 8.1 - 13.5 fL [place] Platelets (Bld) [#/Vol] 174 10*3/uL [place] Platelets (Bld) [#/Vol] NOT REPORTED [place] RBC (Bld) [#/Vol] 3.68 10*6/uL Low 3.95 - 5.11 m/uL [place] RBC morphology finding Nom (Bld) NOT REPORTED [place] Segmented neutrophils/100 WBC (Bld) 60 % 36 - 65 % [place] Segs Absolute 5.22 [place] WBC (Bld) [#/Vol] 0.0 10*3/uL 0.0 per 100 WBC [place] WBC (Bld) [#/Vol] 8.6 10*3/uL [place] WBC Morphology NOT REPORTED [place], [place] Comprehensive metabolic pane nimesh 08-23-2019 Albumin [Mass/Vol] 3.4 g/dL Low 3.5 - 5.2 g/dL [place] Albumin/Globulin [Mass ratio] 1.7 {ratio} [place] ALP [Catalytic activity/Vol] 102 U/L 35 - 104 U/L [place] ALT [Catalytic activity/Vol] 34 U/L High 5 - 33 U/L [place] Anion gap [Moles/Vol] 7 mmol/L Low 9 - 17 mmol/L [place] AST [Catalytic activity/Vol] 95 U/L High <32 [place] Bilirubin Ql (U) 0.46 mg/dL 0.3 - 1.2 mg/dL [place] Bun/Cre Ratio 11 [place] Calcium [Mass/Vol] 8.4 mg/dL Low 8.6 - 10. 4 mg/dL [place] Chloride [Moles/Vol] 109 mmol/L High 98 - 10 7 mmol/L [place] CO2 [Moles/Vol] 22 mmol/L 20 - 31 mmol/L [place] Creatinine [Mass/Vol] 0.66 mg/dL 0.5 - 0.9 mg/dL [place] GFR >60 >60 mL/min [place] GFR Non- >60 >60 mL/min [place] Glucose [Mass/Vol] 89 mg/dL 70 - 99 mg/dL [place] Potassium [Moles/Vol] 4.3 mmol/L 3.7 - 5.3 mmol/L [place] Protein [Mass/Vol] 5.4 g/dL Low 6.4 - 8.3 g/dL [place] Sodium [Moles/Vol] 138 mmol/L 135 - 144 mmol/L [place] Urea nitrogen [Mass/Vol] 7 mg/dL 6 - 20 mg/dL [place] Lipaseon 08-23-2019 Lipase [Catalytic activity/Vol] 96 U/L High 13 - 60 U/L [place] Metabolic Panelon 08-23-2019 GFR/1.73 sq M predicted among non-blacks MDRD (S/P/Bld) [Vol rate/Area] [place] Comment on above: Stage 1: Some [...] body mass. Additional eGFR calculator available at: http://www.[employer]/multiple_crcl_2012.htm Otheron 08-23-2019 Interpretation and review of laboratory results Abnormal [place] CBC Auto Differentialon 08-07 Basophils (Bld) [#/Vol] 0.06 10*3/uL [place] Basophils/100 WBC (Bld) 1 % 0 - 2 % [place] Differential Type NOT REPORTED [place] Eosinophils (Bld) [#/Vol] 0.11 10*3/uL [place] Eosinophils/100 WBC (Bld) 1 % 1 - 4 % [place] Erythrocyte distribution width (RBC) [Ratio] 13.2 % 11.8 - 14.4 % [place] Hematocrit (Bld) [Volume fraction] 41.8 % 36.3 - 47.1 % [place] Hemoglobin (Bld) [Mass/Vol] 13.7 g/dL 11.9 - 15.1 g/dL [place] Immature granulocytes (Bld) [#/Vol] 0.03 10*3/uL [place] Immature granulocytes (Bld) [#/Vol] 0 % 0 [place] Interpretation and review of laboratory results Abnormal [place] Lymphocytes (Bld) [#/Vol] 2.23 10*3/uL [place] Lymphocytes/100 WBC (Bld) 24 % 24 - 43 % [place] MCH (RBC) [Entitic mass] 32.6 pg 25.2 - 33.5 pg [place] MCHC (RBC) [Mass/Vol] 32.8 g/dL 28.4 - 34.8 g/dL [place] MCV (RBC) [Entitic vol] 99.5 fL 82.6 - 102.9 fL [place] Monocytes (Bld) [#/Vol] 0.72 10*3/uL [place] Monocytes/100 WBC (Bld) 8 % 3 - 12 % [place] Platelet mean volume (Bld) [Entitic vol] 10.0 fL 8.1 - 13.5 fL [place] Platelets (Bld) [#/Vol] NOT REPORTED [place] Platelets (Bld) [#/Vol] 213 10*3/uL [place] RBC (Bld) [#/Vol] 4.20 10*6/uL 3.95 - 5.11 m/uL [place] RBC morphology finding Nom (Bld) NOT REPORTED [place] Segmented neutrophils/100 WBC (Bld) 66 % High 36 - 65 % [place] Segs Absolute 6.22 [place] WBC (Bld) [#/Vol] 0.0 10*3/uL 0.0 per 100 WBC [place] WBC (Bld) [#/Vol] 9.4 10*3/uL [place] WBC Morphology NOT REPORTED [place] Comprehensive Metabolic Pane nimesh 08-22-2019 Albumin [Mass/Vol] 4.1 g/dL 3.5 - 5.2 g/dL [place] Albumin/Globulin [Mass ratio] 1.6 {ratio} [place] ALP [Catalytic activity/Vol] 109 U/L High 35 - 104 U/L [place] ALT [Catalytic activity/Vol] 13 U/L 5 - 33 U/L [place] Anion gap [Moles/Vol] 9 mmol/L 9 - 17 mmol/L [place] AST [Catalytic activity/Vol] 22 U/L <32 [place] Bilirubin Ql (U) <0.10 Low 0.3 - 1.2 mg/dL [place] Bun/Cre Ratio 13 [place] Calcium [Mass/Vol] 9.2 mg/dL 8.6 - 10. 4 mg/dL [place] Chloride [Moles/Vol] 103 mmol/L 98 - 10 7 mmol/L [place] CO2 [Moles/Vol] 24 mmol/L 20 - 31 mmol/L [place] Creatinine [Mass/Vol] 0.63 mg/dL 0.5 - 0.9 mg/dL [place] GFR >60 >60 mL/min [place] GFR Non- >60 >60 mL/min [place] Glucose [Mass/Vol] 92 mg/dL 70 - 99 mg/dL [place] Interpretation and review of laboratory results Abnormal [place] Potassium [Moles/Vol] 3.8 mmol/L 3.7 - 5.3 mmol/L [place] Protein [Mass/Vol] 6.7 g/dL 6.4 - 8.3 g/dL [place] Sodium [Moles/Vol] 136 mmol/L 135 - 144 mmol/L [place] Urea nitrogen [Mass/Vol] 8 mg/dL 6 - 20 mg/dL [place] Lactic Acid, Plasmaon 2019 Lactate [Moles/Vol] 1.5 mmol/L 0.5 - 2. 2 mmol/L [place] Lactic Acid, Whole Blood NOT REPORTED 0.7 - 2.1 mmol/L [place] Lipaseon 08-22-2019 Interpretation and review of laboratory results Abnormal [place] Lipase [Catalytic activity/Vol] 255 U/L Critically high 13 - 60 U/L [place] Metabolic Panelon 08-22-2019 GFR/1.73 sq M predicted among non-blacks MDRD (S/P/Bld) [Vol rate/Area] [place] Comment on above: Average GFR for 50-5 9 years old: 93 mL/min/1.73sq m Chronic Kidney Disease: <60 mL/min/1.73sq m Kidney failure: <15 mL/min/1.73sq m eGFR calculated using average adult body mass. Additional eGFR calculator available at: http://www.[employer]/multiple_crcl_2012.htm Stage 1: Some kidney damage normal GFR Stage 2: Mild kidney damage GFR 60-89 Stage 3: Moderate kidney damage GFR 30-59 Stage 4: Severe kidney damage GFR 15-29 Stage 5: Severe kidney damage GFR <15 ESRD - chronic treatment by dialysis or transplant Urinalysis with Microscopico n 08-22-2019 Amorphous, UA NOT REPORTED None [facility] Bacteria, UA NOT REPORTED None [place] Bilirubin Urine Negative NEGATIVE [place] Casts UA NOT REPORTED /LPF [place] Color, UA YELLOW YELLOW [place] Crystals, UA NOT REPORTED None /HPF [place] Epithelial Cells UA 2 TO 5 [place] Glucose, Ur Negative NEGATIVE [place] Interpretation and review of laboratory results Abnormal [place] Ketones Ql (U) Negative NEGATIVE [place] Leukocyte esterase Test strip Ql (U) Negative NEGATIVE [place] Mucus, UA NOT REPORTED None [place], [place] Nitrite, Urine Negative NEGATIVE [place] Other Observations UA NOT REPORTED NOT REQ. M [place] pH, UA 6.0 [place] Protein (U) [Mass/Vol] Negative NEGATIVE [place] RBC (U) [#/Vol] None [place] Renal Epithelial, UA NOT REPORTED 0 /HPF [place] Specific [place], UA <1.005 Low [place] Trichomonas, UA NOT REPORTED None [facility] [place] Turbidity UA CLEAR CLEAR [place] Urinalysis Comments NOT REPORTED [place] Urine Hgb Negative NEGATIVE [facility] [place] Urobilinogen, Urine Normal Normal [facility] WBC, UA None [facility] Yeast, UA NOT REPORTED None [facility] [facility] CBC WITH AUTO DIFFERENTIALon 03-04-2018 Basophils Auto #/vol (Bld) 0.07 10*3/uL Invalid Interpretation Code [facility] Basophils/100 WBC Auto (Bld) 0.7 % Invalid Interpretation Code [facility] Eosinophils Auto #/vol (Bld) 0.09 10*3/uL Invalid Interpretation Code [facility] Eosinophils/100 WBC Auto (Bld) 0.9 % Invalid Interpretation Code [facility] Erythrocyte distribution width Auto Entitic volume (RBC) 12.8 % Invalid Interpretation Code 11.6 - 14.8 % [facility] Hematocrit Auto Volume Fraction (Bld) 45.0 % Invalid Interpretation Code 36 - 46 % [facility] Hemoglobin mass conc (Bld) 15.4 g/dL Invalid Interpretation Code 12 - 16 g/dL [facility] Immature granulocytes #/vol (Bld) 0.03 10*3/uL Invalid Interpretation Code [facility] Immature granulocytes/100 WBC (Bld) 0.30 % Invalid Interpretation Code [facility] Comment on above: The IG parameter is the percentage of metamyelocytes, myelocytes, and promyelocytes. Interpretation and review of laboratory results Abnormal Invalid Interpretation Code [facility] Lymphocytes Auto #/vol (Bld) 2.22 10*3/uL Invalid Interpretation Code [facility] Lymphocytes/100 WBC Auto (Bld) 21.0 % Invalid Interpretation Code [facility] MCH Auto Entitic mass (RBC) 33.6 pg Invalid Interpretation Code 26 - [address] [facility] MCHC Auto mass conc (RBC) 34.2 g/dL Invalid Interpretation Code 31 - 37 g/dL [facility] MCV Auto Entitic volume (RBC) 98.0 fL Invalid Interpretation Code 80 - [address] [facility] Monocytes Auto #/vol (Bld) 0.82 10*3/uL Invalid Interpretation Code [facility] Monocytes/100 WBC Auto (Bld) 7.8 % Invalid Interpretation Code [facility] Neutrophils Auto #/vol (Bld) 7.33 10*3/uL High [facility] Neutrophils/100 WBC Auto (Bld) 69.3 % Invalid Interpretation Code [facility] Nucleated RBC #/vol (Bld) 0.00 10*3/uL Invalid Interpretation Code [facility] Nucleated RBC/100 WBC Ratio (Bld) 0.0 % Invalid Interpretation Code [facility] Platelet mean volume Auto Entitic volume (Bld) 10.1 fL Invalid Interpretation Code 9 - 15.[address] [facility] Platelets Auto #/vol (Bld) 254 10*3/uL Invalid Interpretation Code [facility] RBC Auto #/vol (Bld) 4.59 10*6/uL Invalid Interpretation Code [facility] WBC Auto #/vol (Bld) 10.56 10*3/uL Invalid Interpretation Code [facility] [facility] Chem 7on 03-04-2018 Anion gap 3 molar conc 15 mmol/L Invalid Interpretation Code 10 - 20 mmol/L [facility] Chloride molar conc 103 mmol/L Invalid Interpretation Code 98 - 108 mmol/L [facility] Creatinine mass conc 0.85 mg/dL Invalid Interpretation Code 0.4 - 1.1 mg/dL [facility] GFR/1.73 sq M predicted among non-blacks MDRD vol rate/area (S/P/Bld) The eGFR should be used for monitoring renal function only and not for medication dosing. Invalid Interpretation Code [facility] GFR/1.73 sq M.predicted CKD-EPI vol rate/area (S/P/Bld) 81 Invalid Interpretation Code >=60 mL/min/1.[address] [facility] Glucose mass conc 92 mg/dL Invalid Interpretation Code 65 - 99 mg/dL [facility] HCO3 molar conc 25 mmol/L Invalid Interpretation Code 21 - 32 mmol/L [facility] Potassium molar conc 4.4 mmol/L Invalid Interpretation Code 3.5 - 5.1 mmol/L [facility] Sodium molar conc 139 mmol/L Invalid Interpretation Code 135 - 145 mmol/L [facility] Urea nitrogen mass conc 7 mg/dL Low 8 - 25 mg/dL [facility] Urea nitrogen/Creatinine mass ratio 8.2 mg/mg Low [facility] Hepatic Function Panel (LFT) on 03-04-2018 Albumin mass conc 4.5 g/dL Invalid Interpretation Code 3.2 - 5.2 g/dL [facility] ALP enzyme act/vol 97 U/L Invalid Interpretation Code 40 - 150 U/L [facility] ALT enzyme act/vol 9 U/L Invalid Interpretation Code 0 - 40 U/L [facility] AST enzyme act/vol 15 U/L Invalid Interpretation Code 0 - 45 U/L [facility] Bilirubin mass conc mg/dL Invalid Interpretation Code 0 - 1.3 mg/dL [facility] Bilirubin.conjugated mass conc mg/dL Invalid Interpretation Code 0 - 0.4 mg/dL [facility] Interpretation and review of laboratory results Normal Invalid Interpretation Code [facility] Protein mass conc 7.2 g/dL Invalid Interpretation Code 6 - 8 g/dL [facility] Lipaseon 03-04-2018 Lipase enzyme act/vol 179 U/L High 15 - 6 5 U/L [facility] Otheron 03-04-2018 Extra Tube Hold for add-ons. Invalid Interpretation Code [facility] Comment on above: Auto resulted. Interpretation and review of laboratory results Abnormal Invalid Interpretation Code [facility] URINALYSISon 03-04-2018 Bacteria Auto Ql (U) Rare Abnormal None Se en /hpf [facility] Bilirubin Ql (U) Negative Invalid Interpretation Code Negative [facility] Clarity Refractometry automated Nom (U) Clear Invalid Interpretation Code Clear [facility] Color Auto Nom (U) Colorless Invalid Interpretation Code Colorless, Yellow [facility] Epithelial cells.squamous Auto #/area (Urine sed) [address] [facility] Glucose Automated test strip mass conc (U) Negative Invalid Interpretation Code Negative mg/dL [facility] Hemoglobin Automated test strip Ql (U) Negative Invalid Interpretation Code Negative [facility] Interpretation and review of laboratory results Abnormal Invalid Interpretation Code [facility] Ketones mass conc (U) Negative Invalid Interpretation Code Negative mg/dL [facility] Leukocyte esterase Automated test strip Ql (U) Negative Invalid Interpretation Code Negative [facility] Nitrite Automated test strip Ql (U) Negative Invalid Interpretation Code Negative [facility] pH Test strip (U) 7.0 [pH] Invalid Interpretation Code [facility] Protein mass conc (U) Negative Invalid Interpretation Code Negative mg/dL [facility] RBC Auto #/area (Urine sed) [address] [facility] Specific gravity Automated test strip Relative Density (U) 1.[address] [facility] Urobilinogen Test strip Qn (U) <2.0 Invalid Interpretation Code <2.0 mg/dL [facility] WBC Auto #/area (Urine sed) <[address] [facility] Microscopic examinat ion is performed on all urinalysis samples and only positive findings are reported. The test for blood on the chemical analytic portion of urinalysis may also be positive due to hemoglobinuria and myoglobinuria and if red blood cells are present they are quantified by microscopic examination. Invalid Interpretation Code [facility] BMPon 08-24-2017 Anion gap 18 mmol/L Invalid Interpretation Code 10 - 20 mmol/L [facility] Bicarbonate (HCO3) 27 mmol/L Invalid Interpretation Code 21 - 32 mmol/L [facility] BUN/Creatinine Ratio 10.1 mg/mg Invalid Interpretation Code 10.0 - 20.0 [facility] Calcium 10.6 mg/dL High 8.4 - 10.2 mg/dL [facility] Chloride 101 mmol/L Invalid Interpretation Code 98 - 108 mmol/L [facility] Creatinine 0.69 mg/dL Invalid Interpretation Code 0.4 - 1.1 mg/dL [facility] eGFR (non-black) 103 mL/min/{1.73_m2} Invalid Interpretation Code >=60 [facility] eGFR (non-black) The eGFR should be u sed for monitoring renal function only and not for medication dosing. Invalid Interpretation Code [facility] Glucose mass conc 105 mg/dL High 65 - 99 mg/dL [facility] Interpretation and review of laboratory results Abnormal Invalid Interpretation Code [facility] Potassium molar conc 4.1 mmol/L Invalid Interpretation Code 3.5 - 5.1 mmol/L [facility] Sodium 142 mmol/L Invalid Interpretation Code 135 - 145 mmol/L [facility] Urea nitrogen 7 mg/dL Low 8 - 25 mg/dL [facility] CBC Auto Differentialon 08-07 Basophils Auto #/vol (Bld) 0.08 K/mcL Invalid Interpretation Code 0.00 - 0.30 [facility] Basophils/100 WBC Auto (Bld) 0.6 % Invalid Interpretation Code [facility] Eosinophils 0.05 K/mcL Invalid Interpretation Code 0.00 - 0.50 [facility] Eosinophils/100 leukocytes 0.4 % Invalid Interpretation Code [facility] Erythrocyte distribution width Auto Entitic volume (RBC) 12.2 % Invalid Interpretation Code 11.6 - 14.8 % [facility] Erythrocytes (RBC) 4.60 M/mcL Invalid Interpretation Code 4.00 - 5.20 [facility] Hematocrit (HCT) 43.4 % Invalid Interpretation Code 36 - 46 % [facility] Hemoglobin mass conc (Bld) 15.2 g/dL Invalid Interpretation Code 12 - 16 g/dL [facility] Immature granulocytes #/vol (Bld) 0.05 K/mcL Invalid Interpretation Code 0.00 - 0.30 [facility] Immature granulocytes/100 WBC (Bld) 0.40 % Invalid Interpretation Code [facility] Comment on above: The IG parameter is the percentage of metamyelocytes, myelocytes, and promyelocytes. Lymphocytes 2.40 K/mcL Invalid Interpretation Code 0.90 - 4.00 [facility] Lymphocytes/100 leukocytes 18.1 % Invalid Interpretation Code [facility] MCH 33.0 pg Invalid Interpretation Code 26 - [address] [facility] MCHC mass conc (RBC) 35.0 g/dL Invalid Interpretation Code 31 - 37 g/dL [facility] MCV 94.3 fL Invalid Interpretation Code 80 - [address] [facility] Monocytes 0.85 K/mcL Invalid Interpretation Code 0.30 - 0.90 [facility] Monocytes/100 leukocytes 6.4 % Invalid Interpretation Code [facility] Neutrophils 9.81 K/mcL High 1.70 - 7.00 [facility] Neutrophils/100 WBC Auto (Bld) 74.1 % Invalid Interpretation Code [facility] Nucleated erythrocytes 0.00 K/mcL Invalid Interpretation Code 0.00 - 0.00 [facility] Nucleated erythrocytes/100 erythrocytes 0.0 % Invalid Interpretation Code [facility] Platelet mean volume (PMV) 10.0 fL Invalid Interpretation Code 9 - 15.[address] [facility] Platelets 242 K/mcL Invalid Interpretation Code 150 - 400 [facility] WBC (Leukocytes) 13.24 K/mcL High 4.50 - 11.00 [facility] CBC w/ Diffon 08-24-2017 Creatinine The following orders were created for panel order CBC w/ Diff. Procedure Abnormality Status --------- ------ CBC Auto Differential[[id number]] Abnormal Final result Please view results for these tests on the individual orders. Invalid Interpretation Code [facility] CT ABDOMEN PELVIS WITH IV [...] and demonstrated a prominent signal loss on krh-gh-[id number] images on MRI performed 09/06/2014, compatible with [...] The ovaries probably remain.5. Small left adrenal adenoma.JRS/Jian n ID: [id number] by: PONCHO GALAVIZ on ThuAug 24, 2017 3:53:38 PM EDTTranscribed by: RON KELLOGG on ThuAug 24, 2017 4:00:38 PM EDTFinalized by: PONCHO GALAVIZ on ThuAug 24, 2017 4:03:34 PM EDT [facility] Comment on above: Order Comment: [...] and demonstrated a prominent signal loss on [id number] images on MRI performed 09/06/2014, compatible with [...] probably remain. 5. Small left adrenal adenoma. [employer] Work[employer] ID: [id number] Invalid Interpretation Code [facility] CT Abdomen Pelvis With IV Contrast [...] and demonstrated a prominent signal loss on keh-vx-[id number] images on MRI performed 09/06/2014, compatible with [...] suspicious focal osseous lesions. Invalid Interpretation Code [facility] CT Abdomen Pelvis With IV Contrast [...] probably remain. 5. Small left adrenal adenoma. [employer] Workstation ID: [id number] Invalid Interpretation Code [employer] Hepatic Function Panel (LFT) on 08-24-2017 Alanine aminotransferase (ALT) 14 U/L Invalid Interpretation Code 0 - 40 U/L [facility] Albumin 4.7 g/dL Invalid Interpretation Code 3.2 - 5.2 g/dL [facility] Alkaline phosphatase (ALP) 91 U/L Invalid Interpretation Code 40 - 150 U/L [facility] Aspartate aminotransferase (AST) 17 U/L Invalid Interpretation Code 0 - 45 U/L [facility] Bilirubin (conjugated) mg/dL Invalid Interpretation Code 0 - 0.4 mg/dL [facility] Bilirubin (total) mg/dL Invalid Interpretation Code 0 - 1.3 mg/dL [facility] Interpretation and review of laboratory results Normal Invalid Interpretation Code [facility] Protein 7.4 g/dL Invalid Interpretation Code 6 - 8 g/dL [facility] Lactic Acid, Plasmaon 2017 Lactate 1.0 mmol/L Invalid Interpretation Code 0.6 - 2 mmol/L [facility] Light Blue Topon 08-24-2017 Extra Tube Hold for add-ons. Invalid Interpretation Code [facility] Comment on above: Auto resulted. Lipaseon 08-24-2017 Lipase 51 U/L Invalid Interpretation Code 15 - 65 U/L [facility] [place] Topon 08-24-2017 [place] Top Invalid Interpretation Code [facility] [place] Drawon 08-24-2017 Creatinine The following orders were created for panel order [place] Draw. Procedure Abnormality Status --------- ------ Gold Top[[id number]] Final result Light Blue Top[[id number]] Final result [place] Top[[id number]] Final result Please view results for these tests on the individual orders. Invalid Interpretation Code [facility] Urinalysison 08-24-2017 Bilirubin Ql (U) Negative Invalid Interpretation Code Negative [facility] Blood, Urine Negative Invalid Interpretation Code Negative [facility] Interpretation and review of laboratory results Abnormal Invalid Interpretation Code [facility] Nitrite, Urine Negative Invalid Interpretation Code Negative [facility] Squamous Epithelial 5 /hpf High 0 - 4 [facility] Transitional Epithelial <1 Invalid Interpretation Code 0 - 1 /hpf [facility] Urine, bacteria in sediment Rare Abnormal None Seen /hpf [facility] Urine, clarity Hazy Abnormal Clear [facility] Urine, color Yellow Invalid Interpretation Code Colorless, Yellow [facility] Urine, erythrocytes 1 /hpf Invalid Interpretation Code 0 - 3 [facility] Urine, glucose presence Negative Invalid Interpretation Code Negative mg/dL [facility] Urine, ketones presence Negative Invalid Interpretation Code Negative mg/dL [facility] Urine, leukocyte esterase presence Negative Invalid Interpretation Code Negative [facility] Urine, pH 7.0 [pH] Invalid Interpretation Code 5.0 - 7.0 [facility] Urine, protein Negative Invalid Interpretation Code Negative mg/dL [facility] Urine, specific gravity 1.006 1 Invalid Interpretation Code 1.005 - 1.025 [facility] Urine, urobilinogen <2.0 Invalid Interpretation Code <2.0 mg/dL [facility] WBCs, Urine 1 /hpf Invalid Interpretation Code 0 - 5 [facility] Urinalysis Microscopic examinat ion is performed on all urinalysis samples and only positive findings are reported. The test for blood on the chemical analytic portion of urinalysis may also be positive due to hemoglobinuria and myoglobinuria and if red blood cells are present they are quantified by microscopic examination. Invalid Interpretation Code [facility] BMPon 06-09-2017 Anion gap 18 mmol/L Invalid Interpretation Code 10 - 20 mmol/L [facility] Bicarbonate (HCO3) 21 mmol/L Invalid Interpretation Code 21 - 32 mmol/L [facility] BUN/Creatinine Ratio 11.0 mg/mg Invalid Interpretation Code 10.0 - 20.0 [facility] Calcium 10.2 mg/dL Invalid Interpretation Code 8.4 - 10.2 mg/dL [facility] Chloride 102 mmol/L Invalid Interpretation Code 98 - 108 mmol/L [facility] Creatinine 0.73 mg/dL Invalid Interpretation Code 0.4 - 1.1 mg/dL [facility] eGFR (non-black) The eGFR should be u sed for monitoring renal function only and not for medication dosing. Invalid Interpretation Code [facility] eGFR (non-black) 98 mL/min/{1.73_m2} Invalid Interpretation Code >=60 [facility] Glucose 80 mg/dL Invalid Interpretation Code 65 - 99 mg/dL [facility] Potassium 4.3 mmol/L Invalid Interpretation Code 3.5 - 5.1 mmol/L [facility] Sodium 137 mmol/L Invalid Interpretation Code 135 - 145 mmol/L [facility] Urea nitrogen 8 mg/dL Invalid Interpretation Code 8 - 25 mg/dL [facility] CBC Auto Differentialon 040 Basophils 0.07 K/mcL Invalid Interpretation Code 0.00 - 0.30 [facility] Basophils/100 leukocytes 0.7 % Invalid Interpretation Code [facility] Eosinophils 0.10 K/mcL Invalid Interpretation Code 0.00 - 0.50 [facility] Eosinophils/100 leukocytes 1.0 % Invalid Interpretation Code [facility] Erythrocytes (RBC) 4.75 M/mcL Invalid Interpretation Code 4.00 - 5.20 [facility] Erythrocytes (RBC) 0.00 K/mcL Invalid Interpretation Code 0.00 - 0.00 [facility] Hematocrit (HCT) 46.1 % High 36 - 46 % [facility] Hemoglobin (HGB) 16.1 g/dL High 12 - 16 g/dL [facility] IG Absolute 0.02 K/mcL Invalid Interpretation Code 0.00 - 0.30 [facility] IG Percent 0.20 % Invalid Interpretation Code [facility] Lymphocytes 1.75 K/mcL Invalid Interpretation Code 0.90 - 4.00 [facility] Lymphocytes/100 leukocytes 17.9 % Invalid Interpretation Code [facility] MCH 33.9 pg Invalid Interpretation Code 26 - [address] [facility] MCHC 34.9 g/dL Invalid Interpretation Code 31 - 37 g/dL [facility] MCV 97.1 fL Invalid Interpretation Code 80 - [address] [facility] Monocytes 0.88 K/mcL Invalid Interpretation Code 0.30 - 0.90 [facility] Monocytes/100 leukocytes 9.0 % Invalid Interpretation Code [facility] Neutrophils 6.98 K/mcL Invalid Interpretation Code 1.70 - 7.00 [facility] Neutrophils/100 leukocytes 71.2 % Invalid Interpretation Code [facility] Nucleated erythrocytes/100 erythrocytes 0.0 % Invalid Interpretation Code [facility] Platelet mean volume (PMV) 10.9 fL Invalid Interpretation Code 9 - 15.[address] [facility] Platelets 223 K/mcL Invalid Interpretation Code 150 - 400 [facility] RDW-CA 12.8 % Invalid Interpretation Code 11.6 - 14.8 % [facility] WBC (Leukocytes) 9.80 K/mcL Invalid Interpretation Code 4.50 - 11.00 [facility] Interpretation and review of laboratory results Abnormal Invalid Interpretation Code [facility] CBC w/ Diffon 06-09-2017 Creatinine The following orders were created for panel order CBC w/ Diff. Procedure Abnormality Status --------- ------ CBC Auto Differential[[id number]] Abnormal Final result Please view results for these tests on the individual orders. Invalid Interpretation Code [facility] Hepatic Function Panel (LFT) on 06-09-2017 Alanine aminotransferase (ALT) 10 U/L Invalid Interpretation Code 0 - 40 U/L [facility] Albumin 4.4 g/dL Invalid Interpretation Code 3.2 - 5.2 g/dL [facility] Alkaline phosphatase (ALP) 89 U/L Invalid Interpretation Code 40 - 150 U/L [facility] Aspartate aminotransferase (AST) 20 U/L Invalid Interpretation Code 0 - 45 U/L [facility] Bilirubin (conjugated) mg/dL Invalid Interpretation Code 0 - 0.4 mg/dL [facility] Bilirubin (total) mg/dL Invalid Interpretation Code 0 - 1.3 mg/dL [facility] Interpretation and review of laboratory results Normal Invalid Interpretation Code [facility] Protein 7.3 g/dL Invalid Interpretation Code 6 - 8 g/dL [facility] Lipaseon 06-09-2017 Lipase 50 U/L Invalid Interpretation Code 15 - 65 U/L [facility] [place] Draw[place] 06-09-2017 Creatinine The following orders were created for panel order [place] Draw. Procedure Abnormality Status --------- ------ Urine Container[[id number]] Final result Please view results for these tests on the individual orders. Invalid Interpretation Code [facility] Urinalysison 06-09-2017 Bilirubin, Urine Negative Invalid Interpretation Code Negative [facility] Blood, Urine Negative Invalid Interpretation Code Negative [facility] Calcium Many Abnormal None Seen /hpf [facility] Mucus, Urine Rare Invalid Interpretation Code None Seen, Rare /lpf [facility] Nitrite, Urine Negative Invalid Interpretation Code Negative [facility] RBCs, Urine 1 /hpf Invalid Interpretation Code 0 - 3 [facility] Squamous Epithelial 4 /hpf Invalid Interpretation Code 0 - 4 [facility] Urine, bacteria in sediment None Seen Invalid Interpretation Code None Seen /hpf [facility] Urine, clarity Cloudy Abnormal Clear [facility] Urine, color Yellow Invalid Interpretation Code Colorless, Yellow [facility] Urine, glucose presence Negative Invalid Interpretation Code Negative mg/dL [facility] Urine, ketones presence Trace Abnormal Negative mg/dL [facility] Urine, leukocyte esterase presence Negative Invalid Interpretation Code Negative [facility] Urine, pH 5.0 [pH] Invalid Interpretation Code 5.0 - 7.0 [facility] Urine, protein Negative Invalid Interpretation Code Negative mg/dL [facility] Urine, specific gravity 1.024 1 Invalid Interpretation Code 1.005 - 1.025 [facility] Urine, urobilinogen 2.0 mg/dL Abnormal <2.0 [facility] WBCs, Urine 1 /hpf Invalid Interpretation Code 0 - 5 [facility] Urinalysis Microscopic examinat ion is performed on all urinalysis samples and only positive findings are reported. The test for blood on the chemical analytic portion of urinalysis may also be positive due to hemoglobinuria and myoglobinuria and if red blood cells are present they are quantified by microscopic examination. Invalid Interpretation Code [facility] Urine Containeron 06-09-2017 Urine Container Invalid Interpretation Code [facility] CBCon 05-15-2017 Erythrocytes (RBC) 3.76 M/mcL Low 4.00 - 5.20 [facility] Erythrocytes (RBC) 0.00 K/mcL Invalid Interpretation Code 0.00 - 0.00 [facility] Hematocrit (HCT) 37.1 % Invalid Interpretation Code 36 - 46 % [facility] Hemoglobin (HGB) 12.4 g/dL Invalid Interpretation Code 12 - 16 g/dL [facility] MCH 33.0 pg Invalid Interpretation Code 26 - [address] [facility] MCHC 33.4 g/dL Invalid Interpretation Code 31 - 37 g/dL [facility] MCV 98.7 fL Invalid Interpretation Code 80 - [address] [facility] Nucleated erythrocytes/100 erythrocytes 0.0 % Invalid Interpretation Code [facility] Platelet mean volume (PMV) 9.9 fL Invalid Interpretation Code 9 - 15.[address] [facility] Platelets 197 K/mcL Invalid Interpretation Code 150 - 400 [facility] RDW-CA 12.6 % Invalid Interpretation Code 11.6 - 14.8 % [facility] WBC (Leukocytes) 7.55 K/mcL Invalid Interpretation Code 4.50 - 11.00 [facility] Comprehensive Metabolic Pane nimesh 05-15-2017 Alanine aminotransferase (ALT) 9 U/L Invalid Interpretation Code 0 - 40 U/L [facility] Albumin 3.3 g/dL Invalid Interpretation Code 3.2 - 5.2 g/dL [facility] Alkaline phosphatase (ALP) 73 U/L Invalid Interpretation Code 40 - 150 U/L [facility] Anion gap 15 mmol/L Invalid Interpretation Code 10 - 20 mmol/L [facility] Aspartate aminotransferase (AST) 13 U/L Invalid Interpretation Code 0 - 45 U/L [facility] Bicarbonate (HCO3) 23 mmol/L Invalid Interpretation Code 21 - 32 mmol/L [facility] Bilirubin (total) 0.2 mg/dL Invalid Interpretation Code 0 - 1.3 mg/dL [facility] BUN/Creatinine Ratio 9.4 mg/mg Low 10.0 - 20.0 [facility] Calcium 8.4 mg/dL Invalid Interpretation Code 8.4 - 10.2 mg/dL [facility] Chloride 108 mmol/L Invalid Interpretation Code 98 - 108 mmol/L [facility] Creatinine 0.64 mg/dL Invalid Interpretation Code 0.4 - 1.1 mg/dL [facility] eGFR (non-black) The eGFR should be u sed for monitoring renal function only and not for medication dosing. Invalid Interpretation Code [facility] eGFR (non-black) 107 mL/min/{1.73_m2} Invalid Interpretation Code >=60 [facility] Glucose 91 mg/dL Invalid Interpretation Code 65 - 99 mg/dL [facility] Potassium 4.0 mmol/L Invalid Interpretation Code 3.5 - 5.1 mmol/L [facility] Protein 5.3 g/dL Low 6 - 8 g/dL [facility] Sodium 142 mmol/L Invalid Interpretation Code 135 - 145 mmol/L [facility] Urea nitrogen 6 mg/dL Low 8 - 25 mg/dL [facility] Lipaseon 05-15-2017 Interpretation and review of laboratory results Normal Invalid Interpretation Code [facility] Lipase 31 U/L Invalid Interpretation Code 15 - 65 U/L [facility] Lipid Panelon 05-15-2017 Cholesterol 193 mg/dL Invalid Interpretation Code 100 - 199 mg/dL [facility] Cholesterol to HDL Ratio 7.1 {ratio} Invalid Interpretation Code [facility] HDL Cholesterol 27 mg/dL Low 40 - 59 mg/dL [facility] HDL Cholesterol 166 mg/dL Invalid Interpretation Code [facility] Interpretation and review of laboratory results Abnormal Invalid Interpretation Code [facility] [facility] LDL Cholesterol 108 mg/dL Invalid Interpretation Code 10 - 130 mg/dL [facility] Triglyceride 291 mg/dL High 30 - 150 mg/dL [facility] BMPon 05-14-2017 Anion gap 18 mmol/L Invalid Interpretation Code 10 - 20 mmol/L [facility] Bicarbonate (HCO3) 25 mmol/L Invalid Interpretation Code 21 - 32 mmol/L [facility] BUN/Creatinine Ratio 11.8 mg/mg Invalid Interpretation Code 10.0 - 20.0 [facility] Calcium 10.7 mg/dL High 8.4 - 10.2 mg/dL [facility] Chloride 102 mmol/L Invalid Interpretation Code 98 - 108 mmol/L [facility] Creatinine 0.68 mg/dL Invalid Interpretation Code 0.4 - 1.1 mg/dL [facility] eGFR (non-black) The eGFR should be u sed for monitoring renal function only and not for medication dosing. Invalid Interpretation Code [facility] eGFR (non-black) 105 mL/min/{1.73_m2} Invalid Interpretation Code >=60 [facility] Glucose 86 mg/dL Invalid Interpretation Code 65 - 99 mg/dL [facility] Potassium 4.0 mmol/L Invalid Interpretation Code 3.5 - 5.1 mmol/L [facility] Sodium 141 mmol/L Invalid Interpretation Code 135 - 145 mmol/L [facility] Urea nitrogen 8 mg/dL Invalid Interpretation Code 8 - 25 mg/dL [facility] CBC Auto Differentialon 03 Basophils 0.09 K/mcL Invalid Interpretation Code 0.00 - 0.30 [facility] Basophils/100 leukocytes 0.8 % Invalid Interpretation Code [facility] Eosinophils 0.08 K/mcL Invalid Interpretation Code 0.00 - 0.50 [facility] Eosinophils/100 leukocytes 0.7 % Invalid Interpretation Code [facility] Erythrocytes (RBC) 0.00 K/mcL Invalid Interpretation Code 0.00 - 0.00 [facility] Erythrocytes (RBC) 4.96 M/mcL Invalid Interpretation Code 4.00 - 5.20 [facility] Hematocrit (HCT) 48.5 % High 36 - 46 % [facility] Hemoglobin (HGB) 16.6 g/dL High 12 - 16 g/dL [facility] IG Absolute 0.04 K/mcL Invalid Interpretation Code 0.00 - 0.30 [facility] IG Percent 0.40 % Invalid Interpretation Code [facility] Interpretation and review of laboratory results Abnormal Invalid Interpretation Code [facility] Lymphocytes 1.89 K/mcL Invalid Interpretation Code 0.90 - 4.00 [facility] Lymphocytes/100 leukocytes 17.7 % Invalid Interpretation Code [facility] MCH 33.5 pg Invalid Interpretation Code 26 - [address] [facility] MCHC 34.2 g/dL Invalid Interpretation Code 31 - 37 g/dL [facility] MCV 97.8 fL Invalid Interpretation Code 80 - [address] [facility] Monocytes 0.74 K/mcL Invalid Interpretation Code 0.30 - 0.90 [facility] Monocytes/100 leukocytes 6.9 % Invalid Interpretation Code [facility] Neutrophils 7.86 K/mcL High 1.70 - 7.00 [facility] Neutrophils/100 leukocytes 73.5 % Invalid Interpretation Code [facility] Nucleated erythrocytes/100 erythrocytes 0.0 % Invalid Interpretation Code [facility] Platelet mean volume (PMV) 9.8 fL Invalid Interpretation Code 9 - 15.[address] [facility] Platelets 275 K/mcL Invalid Interpretation Code 150 - 400 [facility] RDW-CA 12.8 % Invalid Interpretation Code 11.6 - 14.8 % [facility] WBC (Leukocytes) 10.70 K/mcL Invalid Interpretation Code 4.50 - 11.00 [facility] CBC w/ Diffon 05-14-2017 Creatinine The following orders were created for panel order CBC w/ Diff. Procedure Abnormality Status --------- ------ CBC Auto Differential[[id number]] Abnormal Final result Please view results for these tests on the individual orders. Invalid Interpretation Code [facility] CT ABDOMEN PELVIS WITH IV [...] appendix in the left lower pelvis.Workstation ID: [id number] by: ERROL ANN on ThuMay 14, 2017 4:08:10 PM ESTTranscribed by: ERROL ANN on ThuMay 14, 2017 4:08:10 PM ESTFinalized by: ERROL ANN on ThuMay 14, 2017 4:08:10 PM EST Normal [facility] Comment on above: Order Comment: Reaso [...] at L1-L2 and L4-L5. Invalid Interpretation Code [facility] CT Abdomen Pelvis With IV Contrast Only Interface, Rad In Waluzi Speechq - 05/14/2017 4:10 PM EST EXAMINATION: [...] in the left lower pelvis. Workstation ID: [id number] Invalid Interpretation Code [facility] CT Abdomen Pelvis With IV Contrast [...] in the left lower pelvis. Workstation ID: [id number] Invalid Interpretation Code [facility] Ruff Topon 05-14-2017 Extra Tube Hold for add-ons. Invalid Interpretation Code [facility] Hepatic Function Panel (LFT) on 05-14-2017 Alanine aminotransferase (ALT) 13 U/L Invalid Interpretation Code 0 - 40 U/L [facility] Albumin 4.8 g/dL Invalid Interpretation Code 3.2 - 5.2 g/dL [facility] Alkaline phosphatase (ALP) 102 U/L Invalid Interpretation Code 40 - 150 U/L [facility] Aspartate aminotransferase (AST) 20 U/L Invalid Interpretation Code 0 - 45 U/L [facility] Bilirubin (conjugated) mg/dL Invalid Interpretation Code 0 - 0.4 mg/dL [facility] Bilirubin (total) 0.2 mg/dL Invalid Interpretation Code 0 - 1.3 mg/dL [facility] Interpretation and review of laboratory results Normal Invalid Interpretation Code [facility] Protein 7.9 g/dL Invalid Interpretation Code 6 - 8 g/dL [facility] Lipaseon 05-14-2017 Lipase 137 U/L High 15 - 65 U/L [facility] [place] Topon 05-14-2017 [place] Top Invalid Interpretation Code [facility] [place] Drawon 05-14-2017 Creatinine The following orders were created for panel order [place] Draw. Procedure Abnormality Status --------- ------ Gold Top[[id number]] Final result Light Blue Top[[id number]] Final result Ruff Top[[id number]] Final result [place] Top[[id number]] Final result Please view results for these tests on the individual orders. Invalid [facility]2017 Bilirubin, Urine Negative Invalid Interpretation Code Negative [facility] Blood, Urine Negative Invalid Interpretation Code Negative [facility] Interpretation and review of laboratory results Abnormal Invalid Interpretation Code [facility] Mucus, Urine Rare Invalid Interpretation Code None Seen, Rare /lpf [facility] Nitrite, Urine Negative Invalid Interpretation Code Negative [facility] RBCs, Urine 2 /hpf Invalid Interpretation Code 0 - 3 [facility] Squamous Epithelial 3 /hpf Invalid Interpretation Code 0 - 4 [facility] Urine, bacteria in sediment Rare Abnormal None Seen /hpf [facility] Urine, clarity Clear Invalid Interpretation Code Clear [facility] Urine, color Yellow Invalid Interpretation Code Colorless, Yellow [facility] Urine, glucose presence Negative Invalid Interpretation Code Negative mg/dL [facility] Urine, ketones presence Negative Invalid Interpretation Code Negative mg/dL [facility] Urine, leukocyte esterase presence Negative Invalid Interpretation Code Negative [facility] Urine, pH 5.0 [pH] Invalid Interpretation Code 5.0 - 7.0 [facility] Urine, protein Negative Invalid Interpretation Code Negative mg/dL [facility] Urine, specific gravity 1.006 1 Invalid Interpretation Code 1.005 - 1.025 [facility] Urine, urobilinogen <2.0 Invalid Interpretation Code <2.0 mg/dL [facility] WBCs, Urine 1 /hpf Invalid Interpretation Code 0 - 5 [facility] Urinalysis Microscopic examinat ion is performed on all urinalysis samples and only positive findings are reported. The test for blood on the chemical analytic portion of urinalysis may also be positive due to hemoglobinuria and myoglobinuria and if red blood cells are present they are quantified by microscopic examination. Invalid Interpretation Code [facility] Vital Signs Date Time Vital Sign Value Performing Clinician Facility 01-19-2024 11:30-0500 Diastolic blood pressure 63 mm[Hg] Sabrina Dee MD, MPH Work Phone: [facility] 01-19-2024 11:30-0500 Heart rate 73 /min Sabrina Dee MD, MPH Work Phone: [facility] 01-19-2024 11:30-0500 Respiratory rate 18 /min Sabrina Dee MD, MPH Work Phone: [facility] 01-19-2024 11:30-0500 SaO2% (BldA) [Mass fraction] 99 % Sabrina Dee MD, MPH Work Phone: [facility] 01-19-2024 11:30-0500 Systolic blood pressure 120 mm[Hg] Sabrina Dee MD, MPH Work Phone: [facility] 01-19-2024 09:54-0500 Body temperature 98.01 [degF] Sabrina Dee MD, MPH Work Phone: [facility] 09-08-2023 09:00-0400 Diastolic blood pressure 54 mm[Hg] Sabrina Dee MD, MPH Work Phone: [facility] 09-08-2023 09:00-0400 Heart rate 83 /min Sabrina Dee MD, MPH Work Phone: [facility] 09-08-2023 09:00-0400 Respiratory rate 13 /min Sabrina Dee MD, MPH Work Phone: [facility] 09-08-2023 09:00-0400 SaO2% (BldA) [Mass fraction] 95 % Sabrina Dee MD, MPH Work Phone: [facility] 09-08-2023 09:00-0400 Systolic blood pressure 94 mm[Hg] Sabrina Dee MD, MPH Work Phone: [facility] 09-08-2023 08:04-0400 Body temperature 97.7 [degF] Sabrina Dee MD, MPH Work Phone: [facility] 09-08-2023 06:43-0400 Body height 157.5 cm Sabrina Dee MD, MPH Work Phone: [facility] 05-11-2023 09:01-0500 Body height 157.5 cm Sabrina Dee MD, MPH Work Phone: [facility] 05-11-2023 09:01-0500 Body mass index (BMI) [Ratio] 21 kg/m2 Sabrina Dee MD, MPH Work Phone: [facility] 05-11-2023 09:01-0500 Body weight 52.07 kg Sabrina Dee MD, MPH Work Phone: [facility] 05-11-2023 09:01-0500 Diastolic blood pressure 48 mm[Hg] Sabrina Dee MD, MPH Work Phone: [facility] 05-11-2023 09:01-0500 Heart rate 107 /min Sabrina Dee MD, MPH Work Phone: [facility] 05-11-2023 09:01-0500 SaO2% (BldA) [Mass fraction] 97 % Sabrina Dee MD, MPH Work Phone: [facility] 05-11-2023 09:01-0500 Systolic blood pressure 110 mm[Hg] Sabrina Dee MD, MPH Work Phone: [facility] 04-18-2023 17:39-0500 Diastolic blood pressure 79 mm[Hg] [place] 04-18-2023 17:39-0500 Heart rate 114 /min [facility] 04-18-2023 17:39-0500 Respiratory rate 16 /min [facility] 04-18-2023 17:39-0500 SaO2% (BldA) [Mass fraction] 98 % [place] 04-18-2023 17:39-0500 Systolic blood pressure 168 mm[Hg] [place] 04-18-2023 15:29-0500 Body height 157.48 cm [facility] 04-18-2023 15:29-0500 Body temperature 99.3 [degF] [facility] 04-18-2023 15:29-0500 Body weight 51.25 kg [facility] 04-11-2023 23:50-0500 Diastolic blood pressure 82 mm[Hg] [place] 04-11-2023 23:50-0500 Heart rate 106 /min [facility] 04-11-2023 23:50-0500 SaO2% (BldA) [Mass fraction] 97 % [place] 04-11-2023 23:50-0500 Systolic blood pressure 151 mm[Hg] [place] 04-11-2023 22:25-0500 Respiratory rate 18 /min [facility] 04-11-2023 21:20-0500 Body height 157.48 cm [facility] 04-11-2023 21:20-0500 Body temperature 97.2 [degF] [facility] 04-11-2023 21:20-0500 Body weight 52 kg [facility] 04-02-2023 19:20-0500 Diastolic blood pressure 74 mm[Hg] [place] 04-02-2023 19:20-0500 Heart rate 91 /min [facility] 04-02-2023 19:20-0500 Respiratory rate 18 /min [facility] 04-02-2023 19:20-0500 SaO2% (BldA) [Mass fraction] 96 % [place] 04-02-2023 19:20-0500 Systolic blood pressure 137 mm[Hg] [place] 04-02-2023 13:45-0500 Body height 157.48 cm [facility] 04-02-2023 13:45-0500 Body temperature 97.6 [degF] [facility] 04-02-2023 13:45-0500 Body weight 54 kg [facility] 11-09-2022 16:30-0400 Diastolic blood pressure 81 mm[Hg] [place] 11-09-2022 16:30-0400 Heart rate 78 /min [facility] 11-09-2022 16:30-0400 Respiratory rate 18 /min [facility] 11-09-2022 16:30-0400 SaO2% (BldA) [Mass fraction] 99 % [place] 11-09-2022 16:30-0400 Systolic blood pressure 141 mm[Hg] [place] 11-09-2022 13:47-0400 Body height 160.02 cm [facility] 11-09-2022 13:47-0400 Body temperature 98.2 [degF] [facility] 11-09-2022 13:47-0400 Body weight 54.2 kg [facility] 08-12-2022 13:15-0400 Diastolic blood pressure 68 mm[Hg] Sabrina Dee MD, MPH Work Phone: [facility] 08-12-2022 13:15-0400 Heart rate 67 /min Sabrina Dee MD, MPH Work Phone: [facility] 08-12-2022 13:15-0400 Respiratory rate 22 /min Sabrina Dee MD, MPH Work Phone: [facility] 08-12-2022 13:15-0400 SaO2% (BldA) [Mass fraction] 99 % Sabrina Dee MD, MPH Work Phone: [facility] 08-12-2022 13:15-0400 Systolic blood pressure 142 mm[Hg] Sabrina Dee MD, MPH Work Phone: [facility] 08-12-2022 11:45-0400 Body temperature 97.81 [degF] Sabrina Dee MD, MPH Work Phone: [facility] 08-12-2022 10:34-0400 Body height 157.5 cm Sabrina Dee MD, MPH Work Phone: [facility] 06-16-2022 10:52-0400 Body mass index (BMI) [Ratio] 23.41 kg/m2 Sabrina Dee MD, MPH Work Phone: [facility] 06-16-2022 10:52-0400 Body weight 58.06 kg Sabrina Dee MD, MPH Work Phone: [facility] 06-16-2022 10:52-0400 Diastolic blood pressure 68 mm[Hg] Sabrina Dee MD, MPH Work Phone: [facility] 06-16-2022 10:52-0400 Heart rate 83 /min Sabrina Dee MD, MPH Work Phone: [facility] 06-16-2022 10:52-0400 SaO2% (BldA) [Mass fraction] 98 % Sabrina Dee MD, MPH Work Phone: [facility] 06-16-2022 10:52-0400 Systolic blood pressure 122 mm[Hg] Sabrina Dee MD, MPH Work Phone: [facility] 03-22-2022 16:51-0500 Diastolic blood pressure 61 mm[Hg] [place] 03-22-2022 16:51-0500 Heart rate 98 /min [facility] 03-22-2022 16:51-0500 Respiratory rate 20 /min [facility] 03-22-2022 16:51-0500 SaO2% (BldA) [Mass fraction] 98 % [place] 03-22-2022 16:51-0500 Systolic blood pressure 149 mm[Hg] [place] 03-22-2022 14:59-0500 Body height 157.48 cm [facility] 03-22-2022 14:59-0500 Body temperature 97.9 [degF] [facility] 03-22-2022 14:59-0500 Body weight 56 kg [facility] 12-16-2021 11:53-0400 Body height 157.5 cm Sabrina Dee MD, MPH Work Phone: [facility] 12-16-2021 11:53-0400 Body mass index (BMI) [Ratio] 22.5 kg/m2 Sabrina Dee MD, MPH Work Phone: [facility] 12-16-2021 11:53-0400 Body weight 55.79 kg Sabrina Dee MD, MPH Work Phone: [facility] 12-16-2021 11:53-0400 Diastolic blood pressure 72 mm[Hg] Sabrina Dee MD, MPH Work Phone: [facility] 12-16-2021 11:53-0400 Heart rate 80 /min Sabrina Dee MD, MPH Work Phone: [facility] 12-16-2021 11:53-0400 SaO2% (BldA) [Mass fraction] 98 % Sabrina Dee MD, MPH Work Phone: [facility] 12-16-2021 11:53-0400 Systolic blood pressure 118 mm[Hg] Sabrina Dee MD, MPH Work Phone: [facility] 10-09-2021 20:00-0400 Body temperature 98.3 [degF] [facility] 10-09-2021 20:00-0400 Diastolic blood pressure 68 mm[Hg] [place] 10-09-2021 20:00-0400 Heart rate 86 /min [facility] 10-09-2021 20:00-0400 Respiratory rate 20 /min [facility] 10-09-2021 20:00-0400 SaO2% (BldA) [Mass fraction] 100 % [place] 10-09-2021 20:00-0400 Systolic blood pressure 110 mm[Hg] [place] 10-09-2021 14:19-0400 Body height 157.48 cm [facility] 10-09-2021 14:19-0400 Body weight 56.69 kg [facility] 10-04-2021 19:00-0400 Diastolic blood pressure 66 mm[Hg] [place] 10-04-2021 19:00-0400 Heart rate 72 /min [facility] 10-04-2021 19:00-0400 Respiratory rate 16 /min [facility] 10-04-2021 19:00-0400 SaO2% (BldA) [Mass fraction] 96 % [place] 10-04-2021 19:00-0400 Systolic blood pressure 110 mm[Hg] [place] 10-04-2021 15:16-0400 Body temperature 97.9 [degF] [facility] 10-04-2021 15:15-0400 Body height 157.48 cm [facility] 10-04-2021 15:15-0400 Body weight 54.5 kg [facility] 09-25-2021 19:58-0400 Heart rate 82 /min [facility] 09-25-2021 18:04-0400 Body temperature 98.1 [degF] [facility] 09-25-2021 18:00-0400 Body height 157.48 cm [facility] 09-25-2021 18:00-0400 Body weight 55.5 kg [facility] 09-25-2021 18:00-0400 Diastolic blood pressure 107 mm[Hg] [place] 09-25-2021 18:00-0400 Respiratory rate 18 /min [facility] 09-25-2021 18:00-0400 SaO2% (BldA) [Mass fraction] 98 % [place] 09-25-2021 18:00-0400 Systolic blood pressure 141 mm[Hg] [place] 08-11-2021 18:12-0400 Heart rate 86 /min [facility] 08-11-2021 18:00-0400 Diastolic blood pressure 69 mm[Hg] [place] 08-11-2021 18:00-0400 Respiratory rate 20 /min [facility] 06-05-2022 18:00-0400 SaO2% (BldA) [Mass fraction] 98 % [place] 08-11-2021 18:00-0400 Systolic blood pressure 114 mm[Hg] [place] 08-11-2021 16:06-0400 Body height 170.18 cm [facility] 08-11-2021 16:06-0400 Body mass index (BMI) [Ratio] 19.6 kg/m2 [place] 08-11-2021 16:06-0400 Body temperature 97.9 [degF] [facility] 08-11-2021 16:06-0400 Body weight 57 kg [facility] 03-19-2021 14:30-0500 Body height 157.48 cm Marya Ginty Other [facility] [employer] Other 03-19-2021 14:30-0500 Body mass index (BMI) [Ratio] 24.69 kg/m2 Marya Ginty Other [employer] Other 03-19-2021 14:30-0500 Body temperature 96 [degF] Marya Ginty Other [employer] Other 03-19-2021 14:30-0500 Body weight 61.24 kg Marya Ginty Other [employer] Other 03-19-2021 14:30-0500 Respiratory rate 63 /min Marya Ginty Other [employer] Other 03-19-2021 14:30-0500 SaO2% (BldA) [Mass fraction] 97 % Marya Ginty Other [employer] Other 03-26-2020 21:05-0500 Pulse Oximetry 100 % [facility] , [place] 03-26-2020 21:01-0500 BP Diastolic 68 mm[Hg] [facility] [place] 03-26-2020 21:01-0500 BP Systolic 152 mm[Hg] [place], [place] 03-26-2020 17:32-0500 BMI (Body Mass Index) 22.86 kg/m2 [facility] 03-26-2020 17:32-0500 Body weight 56.7 kg [facility] [place] 03-26-2020 17:32-0500 Height 157.5 cm [place] 03-26-2020 17:32-0500 Pulse (Heart Rate) 90 /min [facility] 03-26-2020 17:32-0500 Respiratory Rate 18 /min [facility] 03-26-2020 12:39-0500 Body Temperature 98.71 [degF] [facility] 08-25-2019 08:30-0400 Body Temperature 98.01 [degF] Rajeev [facility], [place] 08-25-2019 08:30-0400 BP Diastolic 75 mm[Hg] Rajeev [facility] , [place] 08-25-2019 08:30-0400 BP Systolic 117 mm[Hg] Rajeev [facility] , [place] 08-25-2019 08:30-0400 Pulse (Heart Rate) 84 /min Rajeev [facility] 08-25-2019 08:30-0400 Pulse Oximetry 97 % Rajeev [place] 08-25-2019 08:30-0400 Respiratory Rate 16 /min Rajeev [facility] 08-25-2019 05:30-0400 BMI (Body Mass Index) 25.88 kg/m2 Rajeev [place] 08-25-2019 05:30-0400 Body weight 64.18 kg Raje[place] 08-22-2019 16:00-0400 Height 157.5 cm Rajeev [place] 03-04-2018 13:09-0500 BP Diastolic 69 mm[Hg] [facility] 03-04-2018 13:09-0500 BP Systolic 108 mm[Hg] [facility] 03-04-2018 13:09-0500 Pulse (Heart Rate) 79 /min [facility] 03-04-2018 13:09-0500 Pulse Oximetry 99 % [facility] 03-04-2018 13:09-0500 Respiratory Rate 16 /min [facility] 03-04-2018 11:01-0500 BMI (Body Mass Index) 22.86 kg/m2 [facility] 03-04-2018 11:-0500 Body Temperature 98.6 [degF] [facility] 03-04-2018 11:01-0500 Height 157.5 cm [facility] 03-04-2018 11:01-0500 Weight 56.7 kg [facility] 08-24-2017 20:58-0400 BP Diastolic 64 mm[Hg] [facility] 08-24-2017 20:58-0400 BP Systolic 126 mm[Hg] [facility] 08-24-2017 20:58-0400 Pulse (Heart Rate) 67 /min [facility] 08-24-2017 20:58-0400 Pulse Oximetry 98 % [facility] 08-24-2017 20:58-0400 Respiratory Rate 18 /min [facility] 08-24-2017 13:41-0400 BMI (Body Mass Index) 21.58 kg/m2 [facility] 08-24-2017 13:41-0400 Body Temperature 98.29 [degF] [facility] 08-24-2017 13:41-0400 Height 157.5 cm [facility] 08-24-2017 13:41-0400 Weight 53.52 kg [facility] 06-09-2017 09:32-0400 BP Diastolic 73 mm[Hg] [facility] 06-09-2017 09:32-0400 BP Systolic 106 mm[Hg] [facility] 06-09-2017 09:32-0400 Pulse (Heart Rate) 86 /min [facility] 06-09-2017 09:32-0400 Pulse Oximetry 99 % [facility] 06-09-2017 09:32-0400 Respiratory Rate 16 /min [facility] 06-09-2017 07:20-0400 BMI (Body Mass Index) 21.87 [facility] 06-09-2017 07:20-0400 Body Temperature 98.4 [degF] Joana Vaughn [facility] 06-09-2017 07:20-0400 Height 157.5 cm Joana Vaughn [facility] 06-09-2017 07:20-0400 Weight 54.23 kg Joana Vaughn [facility] 05-15-2017 08:11-0500 Body Temperature 98.01 [degF] David Paige [facility] 05-15-2017 08:11-0500 BP Diastolic 69 mm[Hg] [facility] 05-15-2017 08:11-0500 BP Systolic 116 mm[Hg] [facility] 05-15-2017 08:11-0500 Pulse (Heart Rate) 76 /min [facility] 05-15-2017 08:11-0500 Pulse Oximetry 95 % [facility] 05-15-2017 08:11-0500 Respiratory Rate 15 /min [facility] 05-14-2017 12:58-0500 BMI (Body Mass Index) 21.95 kg/m2 [facility] 05-14-2017 12:58-0500 Height 157.5 cm [facility] 05-14-2017 12:58-0500 Weight 54.43 kg [facility] Encounters Encounter Date Encounter Type Care Provider Facility Start: 01-19-2024 ambulatory SABRINA Ferreira [facility] Start: 01-19-2024 End: 01-19-2024 Subsequent hospital visit by physician Sabrina Dee MD, MPH Work Phone: [facility] Start: 01-14-2024 End: 01-14-2024 Emergency department patient visit [facility] Start: 01-07-2024 End: 01-07-2024 Emergency department patient visit [facility] Start: 12-29-2023 End: 12-29-2023 Emergency department patient visit [facility] Start: 09-29-2023 End: 09-29-2023 Emergency department patient visit [facility] Start: 09-08-2023 End: 09-08-2023 Subsequent hospital visit by physician Sabrina Dee MD, MPH Work Phone: [facility] Start: 09-08-2023 ambulatory SABRINA DEE [facility] Start: 05-22-2023 Telephone encounter [facility] Start: 05-11-2023 Chart abstracting Scanning [facility] Start: 05-11-2023 End: 05-11-2023 Office outpatient visit 40 minutes Sabrina Dee MD, MPH Work Phone: [facility] [place] Comment on above: 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 pancreatitis (Primary Dx); Encounter for screening for malignant neoplasm of colon; Other osteoporosis without current pathological fracture; Epigastric pain; Smoking; Gastroesophageal reflux disease without esophagitis Start: 05-11-2023 ambulatory SABRINA Ferreira [facility] Start: 04-18-2023 End: 04-18-2023 Emergency department patient visit [facility] Work Phone: Start: 04-16-2023 Telephone encounter [facility] Start: 04-11-2023 End: 04-12-2023 Emergency department patient visit [facility] Work Phone: Start: 04-11-2023 End: 04-12-2023 Emergency department patient visit TABITHA NEWELL [facility] Start: 04-11-2023 End: 04-11-2023 Emergency department patient visit [facility] Start: 04-11-2023 End: 04-12-2023 Emergency department patient visit TABITHA NEWELL [facility] Start: 04-02-2023 End: 04-02-2023 Emergency department patient visit [facility] Work Phone: Start: 03-27-2023 End: 03-28-2023 Emergency department patient visit VIC BIRMINGHAM [facility] Start: 03-26-2023 End: 03-27-2023 Emergency department patient visit [facility] Start: 11-09-2022 End: 11-09-2022 Emergency department patient visit [facility] Work Phone: Start: 08-12-2022 End: 08-12-2022 Subsequent hospital visit by physician Sabrina Dee MD, MPH Work Phone: [facility] Start: 06-16-2022 End: 06-16-2022 Office outpatient visit 40 minutes Sabrina Dee MD, MPH Work Phone: [facility] [place] Comment on above: Osteoporosis without current pathological fracture, unspecified osteoporosis type (Primary Dx); Alcohol-induced chronic pancreatitis Start: 06-13-2022 End: 06-13-2022 ambulatory ARIC ARCINIEGA . Facility:H1 Start: 03-29-2022 End: 03-29-2022 ambulatory ELENITA ROLLINS . Facility:[facility]1 Start: 03-22-2022 End: 03-22-2022 Emergency department patient visit [facility] Work Phone: Start: 03-19-2022 End: 03-19-2022 ambulatory MONIK PARKINSON . Facility:[facility]1 Start: 01-28-2022 End: 01-28-2022 Subsequent hospital visit by physician Sabrina Dee MD, MPH Work Phone: [facility] Start: 01-27-2022 End: 01-27-2022 Subsequent hospital visit by physician Sabrina Dee MD, MPH Work Phone: [facility] [place] Comment on above: Arrived Start: 01-15-2022 End: 01-15-[address] HELLEN KITCHEN . Facility:[facility]1 Start: 12-16-2021 End: 12-16-2021 Office outpatient visit 25 minutes Sabrina Dee MD, MPH Work Phone: [facility] [place] Comment on above: Recurrent acute panc reatitis (Primary Dx); History of smoking 25-50 pack years; Alcohol-induced chronic pancreatitis; Epigastric pain; Encounter for screening colonoscopy Start: 12-13-2021 End: 12-14-2021 ambulatory NICK COY Facility:H1 Start: 12-05-2021 End: 12-05-[address] RAJEEV KELLOGG Facility:H1 Start: 10-11-2021 End: 10-12-[address] RAJEEV KELLOGG Facility:H1 Start: 10-04-2021 End: 10-04-2021 Emergency department patient visit [facility] Start: 09-30-2021 End: 09-30-2021 ambulatory NAT HANS . Facility:H1 Start: 09-25-2021 End: 09-25-2021 Emergency department patient visit [facility] Start: 09-17-2021 End: 09-17-[address] RAJEEV KELLOGG Facility:H1 Start: 08-26-2021 End: 08-26-2021 ambulatory NICK COY Facility:H1 Start: 08-22-2021 End: 08-22-[address] TRI HANSON Facility:H1 Start: 08-13-2021 End: 08-13-2021 ambulatory AGUSTIN MADRIGAL Facility:H1 Start: 08-11-2021 End: 08-11-2021 Emergency department patient visit [facility] Start: 07-31-2021 End: 07-31-2021 ambulatory YANNI FRASER Facility:H1 Start: 07-19-2021 End: 07-19-2021 ambulatory LYNNE PERDOMO Facility:H1 Start: 03-19-2021 End: 03-19-2021 ambulatory Marya Almonte Other [place] Other Start: 03-19-2021 Office outpatient visit 15 minutes Marya Almonte [facility] Start: 05-22-2020 End: 05-22-2020 Orders Only Izabela Grant Work Phone: [facility] Start: 03-26-2020 End: 03-26-2020 Emergency department patient visit [facility] ED Comment on above: Acute biliary pancre atitis, unspecified complication status (Primary Dx) Start: 08-22-2019 End: 08-25-2019 Evaluation and management of inpatient Rajeev Cantor Work Phone: [facility] Comment on above: Acute pancreatitis, unspecified complication status, unspecified pancreatitis type (Primary Dx); Pain of upper abdomen Start: 03-08-2018 End: 03-09-2018 Evaluation and management of inpatient [facility] Start: 03-04-2018 End: 03-04-2018 Patient encounter procedure [facility] Start: 03-04-2018 End: 03-04-2018 Emergency department patient visit Keerthi Nguyen Work Phone: [phone] [place] [address] Emergency Department Comment on above: Acute on chronic see creatitis (HCC) (Primary Dx) Start: 08-24-2017 End: 08-24-2017 Emergency department patient visit [facility] Start: 08-24-2017 End: 08-24-2017 Emergency department patient visit Errol Walton Work Phone: [phone] [place] [address] Emergency Department Start: 06-09-2017 End: 06-09-2017 Emergency department patient visit [facility] Start: 06-09-2017 End: 06-09-2017 Emergency department patient visit Joana Mohsen Mendes Work Phone: [phone] [place] [address] Emergency Department Start: 05-14-2017 End: 05-15-2017 Patient encounter procedure [facility] Start: 05-14-2017 End: 05-15-2017 Emergency department patient visit David Adamsluisa Paige Work Phone: [phone] [place] [address] Medical Observation Procedures Date Procedure Procedure Detail Performing Clinician Start: 01-19-2024 UPPER EUS Sabrina Dee MD, MPH Work Phone: Start: 09-08-2023 UPPER EUS Sabrina Dee MD, MPH Work Phone: Start: 04-18-2023 [...] Phone: Start: 08-24-2019 Assay of lipase Rajeev Deepa Cantor Work Phone: Start: 08-24-2019 Blood count [...] Visit [facility] [address] [address] Sabrina Dee MD, MPH [address] [place] [id number] [facility] [place] Start: 11-08-2023 COVID-19 VACCINE ( season) COVID-19 VACCINE ( season) [facility] Start: 11-08-2023 Influenza vaccination INFLUENZA VACCINE (#1) [facility] Start: 05-25-2023 End: 05-25-2023 Patient encounter procedure 05/25/2023 1:00 PM EDT Office Visit [facility] [address] [facility] [address] [place] [id number] Orlando Al MD [address] [place] [address] [facility] Start: 05-19-2023 End: 05-10-2024 UPPER EUS UPPER EUS GI/Bronch Routine Alcohol-induced chronic pancreatitis Expected: 05/19/2023, Expires: 05/10/2024 [facility] Comment on above: Expected: 05/19/2023, Expires: 5 Start: 05-11-2023 End: 05-10-2024 VITAMIN D (25-HYDROXY,TOTAL) VITAMIN D (25-HYDROXY,TOTAL) Lab Routine Other osteoporosis without current pathological fracture Expected: 05/11/2023, Expires: 05/10/2024 [facility] Comment on above: Expected: 05/11/2023, Expires: Start: 04-11-2023 Computed tomography of abdomen and pelvis with contrast CT abdomen pelvis w con [place] Start: 04-11-2023 CT Abdomen and Pelvis W contrast IV [place] Start: 03-16-2023 End: 03-16-2023 Patient encounter procedure 03/16/2023 Office Visit Gastroenterology Sabrina Dee MD, MPH [address] [place] [address] [facility] [place] Start: 11-07-2022 COVID-19 Vaccine ( season) COVID-19 Vaccine ( season) [facility] Start: 11-07-2022 Influenza vaccination [facility] Start: 09-25-2022 Lipid panel LIPID SCREENING [facility] Start: 07-29-2022 End: 06-17-2023 UPPER EUS UPPER EUS GI/Bronch Routine Alcohol-induced chronic pancreatitis Expected: 07/29/2022, Expires: 06/17/2023 [facility] Comment on above: Expected: 07/29/2022, Expires: 4 Start: 07-28-2022 End: 01-28-2023 Screening colonoscopy SCREENING COLONOSCOPY GI/Bronch Routine Encounter for screening colonoscopy Expected: 07/28/2022, Expires: 01/28/2023 [facility] Comment on above: Expected: 07/28/2022, Expires: 3 Start: 07-28-2022 End: 07-28-2022 Patient encounter procedure 07/28/2022 Appointment Endoscopy Julia Tyler MD [address] [address] [facility] Start: 06-16-2022 End: 12-16-2022 Screening colonoscopy SCREENING COLONOSCOPY GI/Bronch Routine Encounter for screening colonoscopy Expected: 06/16/2022, Expires: 12/16/2022 [facility] Comment on above: Expected: 06/16/2022, Expires: 3 Start: 06-16-2022 End: 06-16-2022 Patient encounter procedure 06/16/2022 Office Visit Gastroenterology Sabrina Dee MD, MPH [address] [place] [address] [facility] [place] Start: 03-22-2022 Bacteria identified in Urine by Culture [place] Start: 01-28-2022 End: 01-28-2022 Patient encounter procedure 01/28/2022 Appointment Endoscopy Sabrina Dee MD, MPH [address] [place] [address] [facility] Start: 01-28-2022 Subsequent hospital visit by physician 01/28/2022 Hospital Encounter Endoscopy Sabrina Dee MD, MPH [address] [place] [address] [facility] Comment on above: Arrived Start: 01-14-2022 End: 12-16-2022 UPPER EUS UPPER EUS GI/Bronch Routine Recurrent acute pancreatitis Expected: 01/14/2022, Expires: 12/16/2022 [facility] Comment on above: Expected: 01/14/2022, Expires: 3 Start: 12-16-2021 End: 12-16-2022 Bone density scan BONE DENSITY AXIAL (HIP, PELVIS, SPINE) Imaging Routine Recurrent acute pancreatitis History of smoking 25-50 pack years Expected: 12/16/2021, Expires: 12/16/2022 [facility] Comment on above: Expected: 12/16/2021, Expires: 3 Start: 11-07-2021 Influenza vaccination INFLUENZA VACCINE (#1) [facility] Start: 10-09-2021 CT of abdomen and pelvis without contrast CT abdomen pelvis wo [facility] Start: 10-09-2021 End: 10-09-2021 Emergency department patient visit [facility] Start: 11-13-2020 COVID-19 VACCINE (3 - Booster for Pfizer series) COVID-19 VACCINE (3 - Booster for Pfizer series) [facility] Start: 11-08-2019 Influenza vaccination [place] Start: 11-08-2019 Influenza vaccination given Sequential Influenza Vaccine (#1) [facility] Start: 06-21-2019 Administration of herpes zoster vaccine Zoster Vaccines (1 of 2) [facility] Start: 06-21-2019 Administration of varicella zoster vaccine Zoster (Shingles) Vaccine (1 of 2) [facility] Start: 06-21-2019 Screening for malignant neoplasm of breast Breast cancer screen [place], [place] Start: 06-21-2019 Screening for malignant neoplasm of colon [place] Start: 06-21-2019 Screening for malignant neoplasm of lung LUNG CANCER SCREENING [facility] Start: 06-21-2019 Shingles Vaccine (1 of 2) Shingles Vaccine (1 of 2) [place] Start: 06-21-2019 Zoster vaccine hzv live for subcutaneous use ZOSTER (SHINGLES) VACCINE (1 of 2) [facility] Start: 11-07-2017 Influenza vaccination [facility] Start: 11-07-2016 Influenza vaccination SEQUENTIAL INFLUENZA VACCINE (#1) [facility] Start: 12-10-2014 Screening for malignant neoplasm of cervix PAP SMEAR [facility] Start: 2014 Screening for malignant neoplasm of colon COLORECTAL CANCER SCREENING DISCUSSION [facility] Start: 01-01-2013 Screening for malignant neoplasm of breast MAMMOGRAM SCREENING DISCUSSION [facility] Start: 01-01-2013 Screening mammography Mammogram [facility] Start: 2009 Lipid panel Lipid screen [place], [place] Start: 1990 Screening for malignant neoplasm of cervix [facility] Start: 1988 DTaP,Tdap and Td Vaccines (1 - Tdap) DTaP,Tdap and Td Vaccines (1 - Tdap) [facility] Start: 1988 DTaP/Tdap/Td vaccine (1 - Tdap) DTaP/Tdap/Td vaccine (1 - Tdap) [place] Start: 1988 Hepatitis B vaccination HEP B VACCINE (1 of 3 - 19+ 3-dose series) [facility] Start: 1988 Third diphtheria, tetanus and acellular pertussis (DTaP) vaccination TDAP (ADULT) [facility] Start: 06-21-1987 Hepatitis C antibody, confirmatory test Hepatitis C Screening [facility] Start: 06-21-1987 Tetanus vaccination TETANUS [facility] Start: 1985 COVID-19 Vaccine (1 of 2) COVID-19 Vaccine (1 of 2) [facility] Start: 1984 HIV screening [facility] Start: 1981 Depression Screening Depression Screening [facility] Start: 06-21-1975 Pneumococcal 0-64 years Vaccine (1 of 1 - PPSV23) Pneumococcal 0-64 years Vaccine (1 of 1 - PPSV23) [place] Start: 06-21-1975 PNEUMOCOCCAL VACCINE SERIES (1 - PCV) PNEUMOCOCCAL VACCINE SERIES (1 - PCV) [facility] Start: 06-21-1975 PNEUMOCOCCAL VACCINE SERIES (1 of 2 - PCV) PNEUMOCOCCAL VACCINE SERIES (1 of 2 - PCV) [facility] Start: 1972 History and physical examination, annual for health maintenance Wellness Visit [facility] Start: 1969 Hepatitis B vaccination HEP B VACCINE (1 of 3 - 3-dose series) [facility] Start: 1969 Hepatitis C screening [facility] Start: 1969 Tetanus vaccination [facility] Start: 1969 Tobacco Counseling Tobacco Counseling [facility] CBC auto differential CBC auto d ifferential Lab Routine Daily until discontinued starting 08/23/2019, 3 completed [facility] [employer] [facility] Comment on above: Daily until discontinued starting 2019, [address] ABDOMEN PELVIS W IV CONTRAST Additional Contrast? None CT ABDOMEN PELVIS W IV CONTRAST Additional Contrast? None Imaging STAT 03/26/2020 3:01 PM EST [facility] Subclasses IgG Subclasses A dd-On 05/14/2017 2:06 PM EST [facility] Initiate Oxygen Therapy Protocol Initiate Oxygen Therapy Protocol Respiratory Care Routine Daily until discontinued starting 08/22/2019 [facility] Comment on above: Daily until discontinued starting 2019 Lipase Lipase Lab Routi ne Daily until discontinued starting 08/23/2019, 3 completed [facility] Comment on above: Daily until discontinued starting 2019, 3 completed Patient Education [facility] Work Phone: Patient referral [facility] Work Phone: End: 08-22-2019 Pulse Oximetry Spot Check Pulse Oximetry Spot Check Respiratory Care Routine One Time for 1 Occurrences starting 08/22/2019 until 08/22/2019 [facility] Comment on above: One Time for 1 Occurrences starting 08/07 until 08/22/2019 Screening colonoscopy SCREENING COLONOSCOPY GI/Bronch Routine Encounter for screening colonoscopy 01/28/2022 9:43 AM [facility] Screening colonoscopy SCREENING COLONOSCOPY GI/Bronch Routine Encounter for screening for malignant neoplasm of colon Ordered: 05/11/2023 [facility] Comment on above: Ordered: 05/11/2023 Immunizations Immunization Date Immunization Notes Care Provider Jhon jones 12-23-2015 influenza, injectabl e, quadrivalent, contains preservative Sabrina Dee MD, MPH Work Phone: [facility] 12-23-2015 influenza virus vaccine, unspecified formulation Sabrina Dee MD, MPH Work Phone: [facility] 12-15-2014 influenza virus vaccine, unspecified formulation Sabrina Dee MD, MPH Work Phone: [facility] Payers Date Payer Category Payer Private Health Insurance [id number] 2022 Self-pay [id number] 2022 Medicaid [facility] O [id number] 2022-Present [phone] [address] [place] [address] [id number] 2019 Unknown [facility] xxxxxxxxxxx 2019-Present [phone] CLAIMS DEPARTMENT [address] [place] [address] xxxxxxxxxxx [id number]. [id number] 2017 Unknown [id number] 2017 Unknown 1969 Unknown [id number] 2.16.840.1.808337.3.579.2. 900 1969 Unknown [id number] 2.16.840.1.196554.3.579.2. 900 1969 Unknown [id number] 2.16.840.1.291220.3.579.2. 900 1969 Unknown [id number] 2.16.840.1.496835.3.579.2. 900 1969 Unknown [id number] 2.16.840.1.234687.3.579.2. 900 1969 Unknown [id number] 2.16.840.1.394275.3.579.2. 593 1969 Unknown [id number] 2.16.840.1.956084.3.579.2. 593 1969 Unknown [id number] 2.16.840.1.580173.3.579.2. 593 1969 Unknown [id number] 2.16.840.1.374283.3.579.2. 593 1969 Unknown [id number] 2.16.840.1.659078.3.579.2. 593 1969 Unknown [id number] 2.16.840.1.234692.3.579.2. 593 1969 Unknown [id number] 2.16.840.1.257918.3.579.2. 593 1969 Unknown [id number] 2.16.840.1.564529.3.579.2. 593 1969 Unknown [id number] 2.16.840.1.758102.3.579.2. 593 1969 Unknown [id number] 2.16.840.1.469024.3.579.2. 593 1969 Unknown [id number] 2.16.840.1.320220.3.579.2. 593 1969 Unknown [id number] 2.16.840.1.255131.3.579.2. 593 1969 Unknown [id number] 2.16.840.1.136580.3.579.2. 593 1969 Unknown [id number] 2.16.840.1.397205.3.579.2. 593 1969 Unknown [id number] 2.16.840.1.979309.3.579.2. 173 1969 Unknown [id number] 2.16.840.1.401879.3.579.2. 173 1969 Unknown [id number] 2.16.840.1.918465.3.579.2. 1286 1969 Unknown [id number] 2.16.840.1.555364.3.579.2. 128 1969 Unknown [id number] 2.16.840.1.460023.3.579.2. 1285 1969 Unknown [id number] 2.16.840.1.062813.3.579.2. 128 1969 Unknown [id number] 2.16.840.1.971642.3.579.2. 1285 1969 Unknown [id number] 2.16.840.1.985057.3.579.2. 1285 1969 Unknown [id number] 2.16.840.1.153059.3.579.2. 1285 1969 Unknown [id number] 2.16.840.1.435846.3.579.2. 1285 1969 Unknown [id number] 2.16.840.1.270165.3.579.2. 594 1969 Unknown [id number] 2.16.840.1.237528.3.579.2. 594 1969 Unknown [id number] 2.16.840.1.292036.3.579.2. 594 1959 Medicaid [id number] 1959 Unknown [id number] 1.2.840.175588.1.13.239.2. 7.3.683209.315 Unknown [id number] 2.16.840.1.520691.3.579.2. 531 Unknown [id number] 2.16.840.1.416508.3.579.2. 531 Unknown [id number] 2.16.840.1.485998.3.579.2. 531 Unknown [id number] 2.16.840.1.782126.3.579.2. 531 Social History Date Type Detail Facility Start: 06-09-2017 End: 01-19-2024 Tobacco smoking status NHIS Current every day smoker [facility] End: 10-30-2020 History of tobacco use Cigarette Smoker [facility] Start: 06-09-2017 End: 01-19-2024 Cigarettes smoked current (pack per day) - Reported [facility] Start: 1970 Sex Assigned At Not on file O [facility] Start: 08-22-2019 End: 01-19-2024 Alcohol intake Current non-drinker of alcohol (finding) [employer] Exposure to SARS-CoV -2 (event) Unable to assess [employer] Start: 03-08-2018 End: 01-19-2024 Tobacco use and exposure Never used [employer] Start: 07-24-2014 Tobacco Comment Smokes < 1/2 p pd, smoker for 30+ years [facility] Start: 07-24-2014 Alcohol Comment Prior heavy dr carrlilo, quit 8 years ago [facility] Start: 04-11-2023 End: 01-19-2024 Sex Assigned At [facility] Start: 09-25-2021 End: 04-18-2023 Tobacco smoking status DCIS Smoker (finding) [place] Start: 1970 Sex Assigned At Female F [facility] Start: 05-09-2016 Alcohol Comment been sober for 9 yea rs [facility] Start: 04-02-2023 [facility] [place] Start: 06-25-2022 [facility] Start: 04-11-2023 End: 05-11-2023 Alcohol intake Ex-drinker (finding) [facility] Childcare Unknown [facility] Start: 06-25-2022 Alcohol Comment Has not consum ed alcohol in 12 years [facility] Gender identity Identifies as fe male gender (finding) [facility] Clinical Notes 10-08-2019 to 01-19-2024 Monik Alvarado RN - 01/19/2024 11:44 AM Brennan Alvarado RN - 01/19/2024 11:44 AM To Christiansen MD - 01/19/2024 8:30 AM To Christiansen MD - 01/19/2024 8:30 AM ESTPatient Instructions Note Date & Type Note Facility 01-19-2024 Nurse Surgical operation note Patient mets discharge criteria, recovery per policy/protocol, iv removed, all belongings sent w/ pt including discharge paperwork, reviewed discharge instructions w/ pt, Patient received 2L IVF per MD orders and completed post celiac plexus block post procedure policy, pain relieved to tolerable/baseline level with total 1mg Dilaudid, nausea relieved, MD spoke w/ pt, pt safely transported off unit via wheelchair w/ family assistance. [facility] 01-19-2024 Nurse Note Patient mets discharge criteria, recovery per policy/protocol, iv removed, all belongings sent w/ pt including discharge paperwork, reviewed discharge instructions w/ pt, Patient received 2L IVF per MD orders and completed post celiac plexus block post procedure policy, pain relieved to tolerable/baseline level with total 1mg Dilaudid, nausea relieved, MD spoke w/ pt, pt safely transported off unit via wheelchair w/ family assistance. documented in this encounter [facility] 01-19-2024 History and physical note ENDOSCOPIC PREPROCEDURE HISTORY AND PHYSICAL HISTORY OF PRESENT ILLNESS: Chioma Rainey is a 53 y.o. female seen in the pre-procedure area at [facility]. The indication for endoscopic evaluation includes: Alcohol-induced chronic pancreatitis PAST MEDICAL HISTORY: Past Medical History: Diagnosis Date Anemia Depression H. pylori infection Neutrophilic leukocytosis Pancreatitis SURGICAL HISTORY: Past Surgical History: Procedure Laterality Date EGD W/ ULTRASOUND 09/08/2023 for nerve block EGD W/ ULTRASOUND N/A 12/01/2019 Laterality: N/A; Surgeon: Sabrina Dee MD, MPH; Location: [facility] EGD W/ ULTRASOUND N/A 04/23/2016 Laterality: [...] 50,000 Units, Oral, WEEKLY Pancreatic enzymes (Creon) [id number] units Cap DR Particles capsule 72,000 Units, Oral, 2 TIMES DAILY WITH MEALS Current Outpatient Medications: Ergocalciferol 1.25 MG (11569 UT) capsule, Take 1 capsule by mouth once a week., Disp: 8 capsule, Rfl: 0 Pancreatic enzymes (Creon) [id number] units Cap DR Particles capsule, Take 3 capsules by mouth 2 times daily with meals., Disp: 180 capsule, Rfl: 11 ALLERGIES: Allergies Allergen Reactions Fentanyl Hives Toradol [Ketorolac Tromethamine] Hives and Itching Morphine Hives Tramadol Hives Haloperidol Panic attack Ibuprofen Hives and Swelling Penicillins Swelling Reglan [Metoclopramide] Anxiety FOCUSED REVIEW OF SYSTEMS: Negative for nausea, vomiting, abdominal pain and diarrhea VITAL SIGNS: Vitals: 01/19/24 0745 Resp: 20 Temp: 97.1 degrees F (36.2 degrees C) TempSrc: Infrared PREPROCEDURE PHYSICAL EXAM: AIRWAY: normal, Mallampati: Class [...] with UPPER EUS using Monitored Anesthesia Care. Daniel Christiansen MD [facility] Work Phone: 01-19-2024 History and physical note ENDOSCOPIC PREPROCEDURE HISTORY AND PHYSICAL HISTORY OF PRESENT ILLNESS: Chioma Rainey is a 53 y.o. female seen in the pre-procedure area at [facility]. The indication for endoscopic evaluation includes: Alcohol-induced chronic pancreatitis PAST MEDICAL HISTORY: Past Medical History: Diagnosis Date Anemia Depression H. pylori infection Neutrophilic leukocytosis Pancreatitis SURGICAL HISTORY: Past Surgical History: Procedure Laterality Date EGD W/ ULTRASOUND 09/08/2023 for nerve block EGD W/ ULTRASOUND N/A 12/01/2019 Laterality: N/A; Surgeon: Sabrina Dee MD, MPH; Location: [facility] EGD W/ ULTRASOUND N/A 04/23/2016 Laterality: N/A; Surgeon: Pineda Troy MD; Location: [facility] EGD W/ ULTRASOUND N/A 01/23/2016 Laterality: N/A; Surgeon: Pineda Troy MD; Location: [facility] CHANGE TUBE GASTROSTOMY N/A 08/20/2015 Laterality: N/A; Surgeon: Yanni Alonzo MD; Location: [facility] EGD DIAGNOSTIC N/A 06/25/2015 Laterality: N/A; Surgeon: Pineda Troy MD; Location: [facility] EGD W/ PLACEMENT OR REPLACEMENT PEG N/A 06/15/2015 Laterality: N/A; Surgeon: Curry Newell MD; Location: [facility] EGD W/ INSERTION TUBE OR CATHETER N/A 06/13/2015 Laterality: N/A; Surgeon: Jose Ty MD; Location: [facility] EGD W/ ULTRASOUND N/A 02/14/2015 Laterality: N/A; Surgeon: Pineda Troy MD; Location: [facility] CHOLECYSTECTOMY CHOLECYSTECTOMY, LAPAROSCOPIC HYSTERECTOMY MEDICATIONS: Current Outpatient Medications Medication Instructions Ergocalciferol (VITAMIN D2) 50,000 Units, Oral, WEEKLY Pancreatic enzymes (Creon) 35865-16789-626288 units Cap DR Particles capsule 72,000 Units, Oral, 2 TIMES DAILY WITH MEALS Current Outpatient Medications: Ergocalciferol 1.25 MG (74077 UT) capsule, Take 1 capsule by mouth once a week., Disp: 8 capsule, Rfl: 0 Pancreatic enzymes (Creon) 52691-300[address]-372167 units Cap DR Particles capsule, Take 3 capsules by mouth 2 times daily with meals., Disp: 180 capsule, Rfl: 11 ALLERGIES: Allergies Allergen Reactions Fentanyl Hives Toradol [Ketorolac Tromethamine] Hives and Itching Morphine Hives Tramadol Hives Haloperidol Panic attack Ibuprofen Hives and Swelling Penicillins Swelling Reglan [Metoclopramide] Anxiety FOCUSED REVIEW OF SYSTEMS: Negative for nausea, vomiting, abdominal pain and diarrhea VITAL SIGNS: Vitals: 01/19/24 0745 Resp: 20 Temp: 97.1 degrees F (36.2 degrees C) TempSrc: Infrared PREPROCEDURE PHYSICAL EXAM: AIRWAY: normal, Mallampati: Class [...] with UPPER EUS using Monitored Anesthesia Care. Daniel Christiansen MD documented in this encounter [facility] 09-08-2023 History and physical note ENDOSCOPIC PREPROCEDURE HISTORY AND PHYSICAL HISTORY OF PRESENT ILLNESS: Chioma Rainey is a 53 y.o. female seen in the pre-procedure area at [facility]. The indication for endoscopic evaluation includes: [...] 50,000 Units, Oral, WEEKLY Pancreatic enzymes (Creon) 84766-[address] Particles capsule 72,000 Units, Oral, 2 TIMES DAILY WITH MEALS Current Outpatient Medications: Ergocalciferol 1.25 MG (53717 UT) capsule, Take 1 capsule by mouth once a week., Disp: 8 capsule, Rfl: 0 Pancreatic enzymes (Creon) 10895-[address] units Cap [address] Particles capsule, Take 3 [...] Monitored Anesthesia Care. Sabrina Dee MD, MPH [facility] 09-08-2023 History and physical note ENDOSCOPIC PREPROCEDURE HISTORY AND PHYSICAL HISTORY OF PRESENT ILLNESS: Chioma Rainey is a 53 y.o. female seen in the pre-procedure area at [facility]. The indication for endoscopic evaluation includes: [...] 50,000 Units, Oral, WEEKLY Pancreatic enzymes (Creon) 31777-[address] Particles capsule 72,000 Units, Oral, 2 TIMES DAILY WITH MEALS Current Outpatient Medications: Ergocalciferol 1.25 MG (93238 UT) capsule, Take 1 capsule by mouth once a week., Disp: 8 capsule, Rfl: 0 Pancreatic enzymes (Creon) 67383-[address] Particles capsule, Take 3 [...] auscultation bilaterally ABDOMEN: Soft, nontender, nondistended ASSESSMENT: Chioam Rainey is a 53 y.o. female is ready for the planned procedure. ASA Class: ASA 3 - Patient with moderate systemic disease with functional limitations PLAN: Will plan to proceed with UPPER EUS using Monitored Anesthesia Care. Sabrina Dee MD, MPH documented in this encounter [facility] 09-08-2023 Miscellaneous Notes RN and educated pt on DC instructions, pt verbalized understanding. IV removed per protocol. documented in this encounter [facility] 09-08-2023 Nurse Note Stefano educated pt on DC instructions, pt verbalized understanding. IV removed per protocol. [facility] 05-22-2023 Miscellaneous Notes Called patient to remind them to bring their most current copy of their medication list with them to their appt. Patient verbalizes understanding. documented in this encounter [facility] 05-22-2023 Telephone encounter Note Called patient to remind them to bring their most current copy of their medication list with them to their appt. Patient verbalizes understanding. [facility]-11-2023 History of Presen t illness Narrative This Overnight Associate verified the patients name and date of [...] for pain management 5. Prior evaluation at [facility] for TPIAT and was not a [...] (human immunodeficiency virus infection), Hyperlipidemia, Hyperthyroidism, Hypothyroidism, PA (myocardial infarction), Migraine, PEGGY (obstructive sleep apnea), [...] includes the following prescription(s): Pancreatic enzymes (Creon) 87287-[address] Particles capsule and Ergocalciferol 1.25 MG (78224 UT) capsule. Allergies: She is allergic to [...] Hepatology, and Nutrition documented in this encounter [facility] 05-11-2023 Instructions Sabrina Dee MD, MPH [...] celiac plexus block documented in this encounter [facility] 04-16-2023 Miscellaneous Notes Pt called requesting to schedule a new patient appt. Referral is in media from Tamela Keenan DO. A good phone number to reach the pt: [phone] Referral in media was to [facility] so pt has no referral to nephrology. LM informing pt she would need to have her referring provider fax us over a referral and then I could schedule her a new pt appt. [facility] this [facility]16[facility]23 Telephone encounter Note Pt called requesting to schedule a new patient appt. Referral is in media from Tamela Keenan DO. A good phone number to reach the pt: [phone] [facility] 04-16-2023 Telephone encounter Note Referral in media was to [facility] so pt has no referral to nephrology. LM informing pt she would need to have her referring provider fax us over a referral and then I could schedule her a new pt appt. [facility] 04-16-2023 Miscellaneous Notes LMOM for the patient to call and schedule their new pt appointment with [facility]. documented in this encounter [facility] 04-16-2023 Telephone encounter Note LMOM for the patient to call and schedule their new pt appointment with [facility]. [facility] 08-12-2022 History and physical note ENDOSCOPIC PREPROCEDURE HISTORY AND PHYSICAL HISTORY OF PRESENT ILLNESS: Chioma Rainey is a 52 y.o. female seen in the pre-procedure area at [facility]. The indication for endoscopic evaluation includes: Alcohol-induced chronic pancreatitis PAST MEDICAL HISTORY: Past Medical History: Diagnosis Date Anemia Depression H. pylori infection Neutrophilic leukocytosis Pancreatitis SURGICAL HISTORY: Past Surgical History: Procedure Laterality Date EGD W/ ULTRASOUND N/A 12/01/2019 Laterality: N/A; Surgeon: Sabrina Dee MD, MPH; Location: [facility] EGD W/ ULTRASOUND N/A 04/23/2016 Laterality: N/A; Surgeon: Pineda Troy MD; Location: [facility] EGD W/ ULTRASOUND N/A 01/23/2016 Laterality: N/A; Surgeon: Pineda Troy MD; Location: [facility] CHANGE TUBE GASTROSTOMY N/A 08/20/2015 Laterality: N/A; Surgeon: Yanni Alonzo MD; Location: [facility] EGD DIAGNOSTIC N/A 06/25/2015 Laterality: N/A; Surgeon: Pineda Troy MD; Location: [facility] EGD W/ PLACEMENT OR REPLACEMENT PEG N/A 06/15/2015 Laterality: N/A; Surgeon: Curry Newell MD; Location: [facility] EGD W/ INSERTION TUBE OR CATHETER N/A 06/13/2015 Laterality: N/A; Surgeon: Jose Ty MD; Location: [facility] EGD W/ ULTRASOUND N/A 02/14/2015 Laterality: N/A; Surgeon: Pineda Troy MD; Location: [facility] CHOLECYSTECTOMY CHOLECYSTECTOMY, LAPAROSCOPIC HYSTERECTOMY MEDICATIONS: Current Outpatient Medications Medication Instructions Amitriptyline (ELAVIL) 25 mg, Oral, DAILY AT BEDTIME Ergocalciferol (VITAMIN D2) 50,000 Units, Oral, WEEKLY omeprazole (PRILOSEC) 20 mg, Oral, DAILY Pancreatic enzymes (Creon) [id number] units [address] Particles capsule 48,000 Units, Oral, 3 TIMES DAILY WITH MEALS Current Outpatient Medications: omeprazole [address] capsule, Take 1 capsule by mouth daily., Disp: 30 capsule, Rfl: 6 amitriptyline 10 MG tablet, Take 2.5 tablets by mouth at bedtime., Disp: 30 tablet, Rfl: 11 ergocalciferol 1.25 MG (57719 UT) capsule, Take 1 capsule by mouth once a week for 8 doses., Disp: 8 capsule, Rfl: 0 Pancreatic enzymes (Creon) 37190-[address] units [address] Particles capsule, Take 2 [...] Monitored Anesthesia Care. Sabrina Dee MD, MPH [facility] 08-12-2022 History and physical note ENDOSCOPIC PREPROCEDURE HISTORY AND PHYSICAL HISTORY OF PRESENT ILLNESS: Chioma aRiney is a 52 y.o. female seen in the pre-procedure area at [facility]. The indication for endoscopic evaluation includes: [...] 20 mg, Oral, DAILY Pancreatic enzymes (Creon) 62232-[address] units [address] Particles capsule 48,000 Units, Oral, 3 TIMES DAILY WITH MEALS Current Outpatient Medications: omeprazole [address] capsule, Take 1 capsule by mouth daily., Disp: 30 capsule, Rfl: 6 amitriptyline 10 MG tablet, Take 2.5 tablets by mouth at bedtime., Disp: 30 tablet, Rfl: 11 ergocalciferol 1.25 MG (35935 UT) capsule, Take 1 capsule by mouth once a week for 8 doses., Disp: 8 capsule, Rfl: 0 Pancreatic enzymes (Creon) 60189-[address]50 units Cap [address] Particles capsule, Take 2 [...] Dee MD, MPH documented in this encounter [facility] 08-12-2022 Nurse Note PT Given discharge paperwork and reviewed per MD and nurse. Folder Tier available.Diet and restrictions reviewed as well. Venous access removed no complications noted. Ok to d/c Anesthesia and procedural MD. documented in this encounter [facility] 08-12-2022 Nurse Surgical operation note PT Given discharge paperwork and reviewed per MD and nurse. Folder Tier available.Diet and restrictions reviewed as well. Venous access removed no complications noted. Ok to d/c Anesthesia and procedural MD. [facility] 06-16-2022 History of Presen t illness Narrative This Overnight Associate verified the patients name and date of [...] for pain management 5. Prior evaluation at [facility] for TPIAT and was not a candidate 6. Last CT was at [facility] in 05/2019: No calcification in the [...] (human immunodeficiency virus infection), Hyperlipidemia, Hyperthyroidism, Hypothyroidism, PA (myocardial infarction), Migraine, PEGGY (obstructive sleep apnea), [...] amitriptyline 10 MG tablet, ergocalciferol 1.25 MG (75185 UT) capsule, and Pancreatic enzymes (Creon) 37371-83[address] units Cap [address] Particles capsule. Allergies: She [...] Hepatology, and Nutrition documented in this encounter [facility] 04-10-2023 Instructions Sabrina Dee MD, MPH - 06/16/2022 11:00 AM EDT Schedule EUS celiac plexus block; EGD dilation Referral to endocrinology; appointment to be scheduled Return to clinic in Mar 2023 Smoking cessation Vitamin D 2000 units daily Calcium supplement 1 gram daily Omeprazole (Prilosec) 20mg daily, take at least 30 mins before dinner documented in this encounter [facility] 01-28-2022 Miscellaneous Notes Attending physician in room speaking with patient and family on results. Attending physician ok for discharge. Pt ambulated unassisted with steady gait and balance. IV removed and discharge instructions given with verbal ok by patient of understanding. Pt discharged via w/c with route sales delivery driver from unit. Dr dee aware patient ready for results Updated dr goins on patient pain and received new orders documented in this encounter [facility] 01-28-2022 Note Formatting of this n ote might be different from the original. Attending physician in room speaking with patient and family on results. Attending physician ok for discharge. Pt ambulated unassisted with steady gait and balance. IV removed and discharge instructions given with verbal ok by patient of understanding. Pt discharged via w/c with route sales delivery driver from unit. [facility] 01-28-2022 Note Formatting of this n ote might be different from the original. Dr dee aware patient ready for results [facility] 01-28-2022 Note Formatting of this n ote might be different from the original. Updated dr goins on patient pain and received new orders [facility] 01-28-2022 History and physical note ENDOSCOPIC PREPROCEDURE HISTORY AND PHYSICAL HISTORY OF PRESENT ILLNESS: Chioma Rainey is a 51 y.o. female seen in the preoprocedure area at [facility]. The indication for endoscopic evaluation includes: Recurrent acute pancreatitis PAST MEDICAL HISTORY: Past Medical History: Diagnosis Date Anemia Depression H. pylori infection Neutrophilic leukocytosis Pancreatitis SURGICAL HISTORY: Past Surgical History: Procedure Laterality Date EGD W/ ULTRASOUND N/A 12/01/2019 Laterality: N/A; Surgeon: Sabrina Dee MD, MPH; Location: [facility] EGD W/ ULTRASOUND N/A 04/23/2016 Laterality: N/A; Surgeon: Pineda Troy MD; Location: [facility] EGD W/ ULTRASOUND N/A 01/23/2016 Laterality: N/A; Surgeon: Pineda Troy MD; Location: [facility] CHANGE TUBE GASTROSTOMY N/A 08/20/2015 Laterality: N/A; Surgeon: Yanni Alonzo MD; Location: [facility] EGD DIAGNOSTIC N/A 06/25/2015 Laterality: N/A; Surgeon: Pineda Troy MD; Location: [facility] EGD W/ PLACEMENT OR REPLACEMENT PEG N/A 06/15/2015 Laterality: N/A; Surgeon: Curry Newell MD; Location: [facility] EGD W/ INSERTION TUBE OR CATHETER N/A 06/13/2015 Laterality: N/A; Surgeon: Jose Ty MD; Location: [facility] EGD W/ ULTRASOUND N/A 02/14/2015 Laterality: N/A; Surgeon: Pineda Troy MD; Location: [facility] CHOLECYSTECTOMY CHOLECYSTECTOMY, LAPAROSCOPIC HYSTERECTOMY MEDICATIONS: Current Outpatient Medications Medication Instructions amitriptyline (ELAVIL) 25 mg, Oral, DAILY AT BEDTIME ergocalciferol (VITAMIN D2) 50,000 Units, Oral, WEEKLY Pancreatic enzymes (Creon) 30494-44820 units [address] Particles capsule 48,000 Units, Oral, 3 TIMES DAILY WITH MEALS Current Outpatient Medications: amitriptyline 10 MG tablet, Take 2.5 tablets by mouth at bedtime., Disp: 30 tablet, Rfl: 11 Pancreatic enzymes (Creon) 95538-[address] Particles capsule, Take 2 capsules by mouth 3 times daily with meals., Disp: 180 capsule, Rfl: 0 ergocalciferol 1.25 MG (67155 UT) capsule, Take 1 capsule by mouth [...] Monitored Anesthesia Care. Sabrina Dee MD, MPH [facility] 01-28-2022 History and physical note ENDOSCOPIC PREPROCEDURE HISTORY AND PHYSICAL HISTORY OF PRESENT ILLNESS: Chioma Rainey is a 51 y.o. female seen in the preoprocedure area at [facility]. The indication for endoscopic evaluation includes: Recurrent acute pancreatitis PAST MEDICAL HISTORY: Past Medical History: Diagnosis Date Anemia Depression H. pylori infection Neutrophilic leukocytosis Pancreatitis SURGICAL HISTORY: Past Surgical History: Procedure Laterality Date EGD W/ ULTRASOUND N/A 12/01/2019 Laterality: N/A; Surgeon: Sabrina Dee MD, MPH; Location: [facility] EGD W/ ULTRASOUND N/A 04/23/2016 Laterality: N/A; Surgeon: Pineda Troy MD; Location: [facility] EGD W/ ULTRASOUND N/A 01/23/2016 Laterality: N/A; Surgeon: Pineda Troy MD; Location: [facility] CHANGE TUBE GASTROSTOMY N/A 08/20/2015 Laterality: N/A; Surgeon: Yanni Alonzo MD; Location: [facility] EGD DIAGNOSTIC N/A 06/25/2015 Laterality: N/A; Surgeon: Pineda Troy MD; Location: [facility] EGD W/ PLACEMENT OR REPLACEMENT PEG N/A 06/15/2015 Laterality: N/A; Surgeon: Curry Newell MD; Location: [facility] EGD W/ INSERTION TUBE OR CATHETER N/A 06/13/2015 Laterality: N/A; Surgeon: Jose Ty MD; Location: [facility] EGD W/ ULTRASOUND N/A 02/14/2015 Laterality: N/A; Surgeon: Pineda Troy MD; Location: [facility] CHOLECYSTECTOMY CHOLECYSTECTOMY, LAPAROSCOPIC HYSTERECTOMY MEDICATIONS: Current Outpatient Medications Medication Instructions amitriptyline (ELAVIL) 25 mg, Oral, DAILY AT BEDTIME ergocalciferol (VITAMIN D2) 50,000 Units, Oral, WEEKLY Pancreatic enzymes (Creon) 36594-[address] Particles capsule 48,000 Units, Oral, 3 TIMES DAILY WITH MEALS Current Outpatient Medications: amitriptyline 10 MG tablet, Take 2.5 tablets by mouth at bedtime., Disp: 30 tablet, Rfl: 11 Pancreatic enzymes (Creon) 73567-[address] units [address] Particles capsule, Take 2 capsules by mouth 3 times daily with meals., Disp: 180 capsule, Rfl: 0 ergocalciferol 1.25 MG (18243 UT) capsule, Take 1 capsule by mouth [...] Dee MD, MPH documented in this encounter [facility] 12-16-2021 History of Presen t illness [...] for pain management 5. Prior evaluation at [facility] for TPIAT and was not a candidate 6. Last CT was at [facility] in 05/2019: No calcification in the [...] (human immunodeficiency virus infection), Hyperlipidemia, Hyperthyroidism, Hypothyroidism, PA (myocardial infarction), Migraine, PEGGY (obstructive sleep apnea), [...] 10 MG tablet and Pancreatic enzymes (Creon) 49830-[address] Particles capsule. Allergies: She [...] 6 months documented in this encounter [facility] 12-16-2021 Instructions Sabrina Dee MD, MPH - 12/16/2021 11:30 AM EDT Schedule DEXA scan Schedule colonoscopy Schedule EUS Start vitamin D 1,000 units daily. Start calcium supplements 1g daily RTC in 6 months documented in this encounter [facility] 03-19-2021 Evaluation note Encounter Date Diagnosis [...] Patient care instructions given in writting by [facility] document [employer] Other [id number] History general Narrative - Reported* Type Description Date Medical History chronic pancreatitis Medical History chronic pain Medical History former alcoholic Surgical History egd- [facility] 10/2019 Surgical History GALLBLADDER Surgical History COLON-[facility] Hospitalization History see above [employer] Other Evaluation noteNo assessment information available [facility] Work Phone: Evaluation note* Diagnosis Recurrent acute pancreatitis- Primary Acute pancreatitis History of smoking 25-50 pack years Alcohol-induced chronic pancreatitis Chronic pancreatitis Epigastric pain Abdominal pain, epigastric Encounter for screening colonoscopy Special screening for malignant neoplasms, colon [facility] Diagnosis Recurrent acute pancreatitis Acute pancreatitis History of smoking 25-50 pack years Encounter for screening colonoscopy Special screening for malignant neoplasms, colon [facility] Diagnosis Other osteoporosis without current pathological fracture- Primary Recurrent acute pancreatitis Acute pancreatitis Encounter for screening colonoscopy Special screening for malignant neoplasms, colon [facility] Diagnosis Encounter for screening colonoscopy Special screening for malignant neoplasms, colon [facility] Diagnosis Osteoporosis without current pathological fracture, unspecified osteoporosis type- Primary Alcohol-induced chronic pancreatitis Chronic pancreatitis [facility] Diagnosis Alcohol-induced chronic pancreatitis Chronic pancreatitis [facility] Alcohol-induced chronic pancreatitis- Primary Chronic pancreatitis Encounter for screening for malignant neoplasm of colon Special screening for malignant neoplasms, colon Other osteoporosis without current pathological fracture Epigastric pain Abdominal pain, epigastric Smoking Tobacco use disorder Gastroesophageal reflux disease without esophagitis Esophageal reflux [facility] Diagnosis Alcohol-induced chronic pancreatitis Chronic pancreatitis [facility] Diagnosis Alcohol-induced chronic pancreatitis Chronic pancreatitis [facility] Additional Instructions Fluids Phenergan if needed for nausea vomiting Bentyl as needed for abdominal pain Follow-up with your GI specialist call Thursday for appointment Return here if any problems persist or worsen [facility] Work Phone: Hospital Discharge instructions Additional Instructions Clear with diet today and advance as tolerated Push fluids Percocet if needed for severe pain Zofran or Phenergan if needed for nausea vomiting Keep your doctor's appointment tomorrow as planned Return here if you develop any increased pain, vomiting unable to be controlled, fevers, chills or [facility] Work [facility]: Hospital Discharge instructions Additional Instructions Follow-up with your primary care doctor Return to ED if develop worsening symptoms or [facility] Work Phone: Hospital Discharge instructions Additional Instructions Follow-up with your private physician as your calcium was slightly elevated Return if symptoms are worse Lots of fluids/no alcoholFirelands [facility] Work Phone: Hospital Discharge instructions* Attachments The following attachments cannot be sent through Care Everywhere. * Clear Liquid Diet: General Info (Chinese) [facility]ructionsNot on file [facility] System[facility]ructionsNot on file documented in this encounterWestern [facility] SystemInstructionsNot on file [facility] Discharge Instructions * Jose Brown PA-C [...] Log into your personal health record on [email or web address] and enter E907 in the Education box to learn more about Abdominal Pain: Care Instructions. Current as of: August 03, 2015 Content Version: 11.2 1402-9165 [employer]. Care instructions adapted under license by your healthcare professional. If you have questions about a medical condition or this instruction, always ask your healthcare professional. [employer] disclaims any warranty or liability for your [...] Log into your personal health record on [email or web address] and enter H591 in the Education box to learn more about Nausea and Vomiting: Care Instructions. Current as of: August 03, 2015 Content Version: 11.2 6036-0933 [employer]. Care instructions adapted under license by your healthcare professional. If you have questions about a medical condition or this instruction, always ask your healthcare professional. [employer] disclaims any warranty or liability for your use of this information. Please review regarding your visit: Please note that your blood pressure during this ER visit was above 120/80 mmHg. YOUR BP READING WAS: 111/88 The [place] [employer] (AHA) defines a normal blood [...] review at your convenience for more information: [email or web address] in this encounter* Discharge Instr - Other Orders - Poncho Sparks RN - 05/15/2017 1:20 PM EST Patient voices desire to leave hospital AMA. IV removed. Patient is ambulatory in care of spouse. [facility] hospitalist notified. in this encounter* Montse Khan CNP - 08/24/2017 Seek medical attention if you have worsening symptoms or other concerns. Please follow up with your family doctor or one of your choosing. You may find a provider through the [facility] Physician Referral Service by calling [phone]) or by visiting [email or web address] Thank You for choosing [facility]! The following attachments cannot be sent through Care Everywhere. * Nausea and Vomiting (Chinese) * Gastroenteritis (Chinese) * Diarrhea (Chinese) in this encounter The following attachments cannot be sent through Care Everywhere. * Pancreatitis (Chinese) in this encounter* Instructions* Laura Meyer RN - 08/25/2019 Patient Instructions: Activity: activity as tolerated Diet: encourage fluids GI specialist in 2 weeks. * Attachments The following attachments cannot be sent through Care Everywhere. * Pancreatitis: Chronic Diet (Chinese) * Pancreatitis (Chinese) documented in this encounter Assessments Diagnosis Epigastric [...] FoundDocuments on File Type Date Recorded Patient Order Management Specialist Expl anation Advance Directives and Living Will Power of Deck Molder Latest Code Status on File Code Status Date Activated Date Inactivated Comments Full Code 08/22/2019 4:27 PM Documents on File Type Date Recorded Patient Order Management Specialist Expl anation Advance Directives and Livin [...] Documents on File Type Date Recorded Patient Order Management Specialist Expl anation ACP-Advance Directive ACP-Power of Deck Molder Latest Code Status on File Code Status [...] toradol is contraindicated. Called Dr. Hughes back, freelance copywriter explained that patient is tolerating dilaudid. Dr. Hughes ordered dose of dilaudid increased from 0.25 mg to 0.5 mg q4 hrs PRN. * Ladan Stearns RN - 08/24/2019 1:27 PM EDT Patient walking in hallway at this time. * Ladan Stearns RN - 08/24/2019 9:14 AM EDT [address] [employer] [address] to patients bedside at this time to reassess pain. Patient sitting in chair, appears restless and is tearful. Patient states Dilaudid did not help the pain, states there is nothing freelance copywriter can do as she deals with this [...] Scheduled for EGD in September with her Leather Heel Breaster at [facility] Discharge Planning -- Home when stable Carley Camara APRN, FOOD QUALITY TESTER-C Associated attestation - Rajeev Cantor MD - 08/24/2019 5:30 PM EDT Attending Supervising Physician s Attestation Statement I have personally evaluated and examined the patient [id number] in conjunction with the nurse practitioner. I [...] Examined and Reviewed plan of care with FOOD QUALITY TESTER. Directions and discussion about care and plans. [...] [place] RN - 08/23/2019 4:40 PM EDT [address] [employer] [address] contacted Dr. Cantor regarding update that patient [...] he would not give order for Benedryl. [facility] [employer] [facility] let nurse know that if patient's c/o ithcing and redness doesn't improve in an hour, that freelance copywriter will be calling back to update physician. * Brie Birmingham RN - 08/23/2019 3:[address] called into patient's room d/t patient c/o itching, feeling hot , and slight redness noted to BUE and face. Friend [facility] [employer] [facility] contacted Dr. Cantor office and left message with his nurse, asking for IV Benedryl and d/c of Lovenox. Patient thinks she may have had reaction to Lovenox in the past, and thatis the only other med she is currently taking here other than Dilaudid. [employer] [facility] [employer] did once again verify that patient usually [...] medically stable. Patient lives with her in [place]. She uses no DME and has no outside services currently in place. Patient provides for her own transportation needs and manages her medications. She is independent with her ADL's. PCP is [facility]. Patient has [employer] and denies needing further assistance with the cost of her medications. Discharge plan is home with no additional services at this time. Patient is a 'Full Code' status. She has no healthcare directives and voices that she is not interested in pursuing these documents further. INSPECTOR EXPERIMENTAL ASSEMBLY to monitor and assist with discharge planning [...] [place] RN - 08/23/2019 9:05 AM EDT [address] made CROSSBAR FRAME WIRER aware that patient is vomiting at this time since clear liquid diet added. Friend Of The Court to give Zofran and place patient back [...] weight loss, but states of weight gain. [id number] Discussed need to re-zero Pt bed to verify gain. She declined education needs states she has a GI doctor and RDN at the [facility]. Reports following the guidelines they recommended. States [...] 5. Fluid Accumulation-No significant fluid accumulation, 6. Bread Stacker Strength-Not measured Nutrition Risk Level: Moderate Nutrient Needs: Estimated Daily Total Kcal: 5443-1224(20-23/kg) Estimated Daily Protein (g): 65-75g(1.3-1.5g/kg) Estimated Daily [...] weight gain/23%, recommend to re-zero Pt bed [place] Body Wt: 110 lb (49.9 kg), % [place] Body 129% BMI Classification: BMI 25.0 - [...] Nausea or Vomiting, Patient/Family Education Contact Number: [phone] * Carley Camara APRN - CROSSBAR FRAME WIRER - 08/23/2019 7:30 AM EDT Progress Note [...] Daily Discharge Plan--later today/tomorrow Carley Camara APRN, FOOD QUALITY TESTER-C Associated attestation - Rajeev Cantor MD - 08/23/2019 12:04 PM EDT Attending Supervising Physician s Attestation Statement I have personally evaluated and examined the patient [id number] in conjunction with the nurse practitioner. I [...] Examined and Reviewed plan of care with FOOD QUALITY TESTER. Directions and discussion about care and plans. [...] running a code on another patient; supervisor travel trailer states that report will be called when able. Friend Of [employer] Court unable to get ahold of staff inED to put patient in manager internal so that freelance copywriter can transfer patient over to [facility]. Will [...] Diagnoses Alcohol-induced chronic pancreatitis Procedures UPPER EUS TN ESOPHAGOGASTRODUODENOSCOPY US SCOPE W/ADJ STRXRS Sabrina Dee MD, MPH [address] [place] [phone] Referral ID Status Reason Start Date Expiration Date V isits Requested Visits Authorized [id number] New Request 06/16/2022 07/11/2023 1 1 Specialty Diagnoses / Procedures Referred By Zia espinal Referred To Contact Endocrinology, Diabetes & Metabolism Diagnoses Osteoporosis without current pathological fracture, unspecified osteoporosis type Sabrina Dee MD, MPH [address] [place] [phone] Referral ID Status Reason Start Date Expiration Date V isits Requested Visits Authorized [id number] New Request 06/16/2022 07/11/2023 1 1 Specialty Diagnoses / Procedures Referred By Contac t Referred To Contact Diagnoses Encounter for screening colonoscopy Procedures SCREENING COLONOSCOPY TN COLON CA SCRN NOT HI RSK IND Sabrina Dee MD, MPH [address] [place] [phone] Referral ID Status Reason Start Date Expiration Date V isits Requested Visits Authorized [id number] New Request 12/16/2021 01/10/2023 1 1 Specialty Diagnoses / Procedures Referred By Contac t Referred To Contact Diagnoses Recurrent acute pancreatitis History of smoking 25-50 pack years Procedures BONE DENSITY AXIAL (HIP, PELVIS, SPINE) Sabrina Dee MD, MPH [address] [place] [phone] Referral ID Status Reason Start Date Expiration Date V isits Requested Visits Authorized [id number] New Request 12/16/2021 01/10/2023 1 1 Specialty Diagnoses / Procedures Referred By Contac t Referred To Contact Diagnoses Recurrent acute pancreatitis Procedures UPPER EUS TN EGD US GUIDED TRANSMURAL INJXN/FIDUCIAL MARKER Sabrina Dee MD, MPH [address] [place] [phone] Referral ID Status Reason Start Date Expiration Date V isits Requested Visits Authorized [id number] New Request 12/16/2021 01/10/2023 1 1 Additional [...] the patient. I discussed the patient with FOOD QUALITY TESTER/PA. I agree with the FOOD QUALITY TESTER/PA treatment plan. I agree with the FOOD QUALITY TESTER/PA plan of care. I agree with the FOOD QUALITY TESTER/PA dispo as documented. 46-year-old female presents with abdominal pain. She states I have chronic pancreatitis and this feels like a flareup . States that she took her usual Phenergan and Charlotte with minimal relief so came the emergency [...] She is going to follow with her bpm architect with whom she has an appointment on [...] different from the original. ED PROVIDER NOTE [facility] NAME: Chioma Rainey AGE: 46 y.o. : 1970 VISIT DATE: 06/09/2017 CSN: [id number] PCP: Elie Nichols MD Chief Complaint Patient [...] Phenergan suppository. She states that she took Charlotte last night. Last dose of Charlotte was around 9 PM last night. She [...] Procedure: EGD; Surgeon: Romain Dumont MD; Location: [facility]; Service: HYSTERECTOMY ORIF PELVIS ORTHOPEDIC [...] Yellow Clarity, Urine Cloudy (A) Clear Specific [place] 1.024 1.005 - 1.025 pH, Urine 5.0 [...] Phenergan suppositories. She has follow-up with her bpm architect at [facility] in 2 weeks. Do not feel [...] Information 1. Pineda Troy MD. Specialty: Gastroenterology [address] [place] [address] Contact information for after-discharge care Follow-up information [...] her back. Pt has been taking prescribed Charlotte without relief and states she has been vomiting.in this encounter I personally interviewed the patient. I personally examined the patient. I discussed the patient with FOOD QUALITY TESTER/PA. I agree with the FOOD QUALITY TESTER/PA treatment plan. I agree with the FOOD QUALITY TESTER/PA plan of care. I agree with the FOOD QUALITY TESTER/PA dispo as documented. I saw evaluate this [...] different from the original. ED PROVIDER NOTE [facility] NAME: Chioma Rainey AGE: 46 y.o. : 1970 VISIT DATE: 05/14/2017 CSN: [id number] PCP: Elie Nichols MD Chief Complaint Patient [...] Procedure: EGD; Surgeon: Romain Dumont MD; Location: [facility]; Service: HYSTERECTOMY ORIF PELVIS ORTHOPEDIC [...] Colorless, Yellow Clarity, Urine Clear Clear Specific [place] 1.006 1.005 - 1.025 pH, Urine 5.0 [...] in the left lower pelvis. Workstation ID: [id number] Procedures MDM This is a 46-year-old female [...] different from the original. ED PROVIDER NOTE [facility] NAME: Chioma Rainey AGE: 47 y.o. : 1970 VISIT DATE: 08/24/2017 CSN: [id number] PCP: Elie Nichols MD Chief Complaint Patient [...] Procedure: EGD; Surgeon: Romain Dumont MD; Location: [facility]; Service: HYSTERECTOMY ORIF PELVIS ORTHOPEDIC [...] Yellow Clarity, Urine Hazy (A) Clear Specific [place] 1.006 1.005 - 1.025 pH, Urine 7.0 [...] probably remain. 5. Small left adrenal adenoma. [employer] Workstation ID: [id number] Procedures MDM 47-year-old female [...] she did vomit. She was then given TN Phenergan and a dose of Toradol. She [...] Medicine Why: follow up ER visit [address] [place] [id number] Contact information for after-discharge care Follow-up information [...] the patient. I discussed the patient with FOOD QUALITY TESTER/PA. I agree with the FOOD QUALITY TESTER/PA treatment plan. I agree with the FOOD QUALITY TESTER/PA plan of care. I agree with the FOOD QUALITY TESTER/PA dispo as documented. Formatting of this note may be different from the original. ED PROVIDER NOTE [facility] NAME: Chioma Rainey AGE: 47 y.o. : 1970 VISIT DATE: 03/04/2018 CSN: [id number] PCP: Elie Nichols MD Chief Complaint Patient [...] CHOLECYSTECTOMY EGD N/A 09/05/2014 Procedure: EGD; Surgeon: Rmoain Dumont MD; Location: [facility]; Service: HYSTERECTOMY ORIF PELVIS ORTHOPEDIC [...] Colorless, Yellow Clarity, Urine Clear Clear Specific [place] 1.004 (L) 1.005 - 1.025 pH, Urine [...] Condition Comment Hospitalize Attending Provider or Group: [facility] [[id number]] Phone call required?: No Follow-up Information Follow-up [...] different from the original. Adonis Negro MD [facility] History and Physical Patient Name:Chioma Rainey MR #:[id number] :1970 Admit Date: [id number] Physicians: Elie Nichols MD (Family); No ref. [...] Procedure: EGD; Surgeon: Romain Dumont MD; Location: [facility]; Service: HYSTERECTOMY ORIF PELVIS ORTHOPEDIC [...] To Contact Diagnoses Acute recurrent pancreatitis Rajeev Catnor MD [address] [place] [address], [address] [place] [phone] [facility] Reason Comments Abdominal Pain Pt c/o [...] SPINE) Sabrina Dee MD, MPH [address] [place] [phone] Referral ID Status Reason Start Date Expiration Date V isits Requested Visits Authorized [id number] New Request 12/16/2021 01/10/2023 1 1 Specialty Diagnoses / Procedures Referred By Zia espinal Referred To Contact Diagnoses Recurrent acute pancreatitis Procedures UPPER EUS TN EGD US GUIDED TRANSMURAL INJXN/FIDUCIAL MARKER Sabrina Dee MD, MPH [address] [place] [address] Referral ID Status Reason Start Date Expiration Date V isits Requested Visits Authorized [id number] New Request 12/16/2021 01/10/2023 1 1 Specialty Diagnoses / Procedures Referred By Zia espinal Referred To Contact Diagnoses Encounter for screening colonoscopy Procedures SCREENING COLONOSCOPY TN COLON CA SCRN NOT HI RSK IND Sabrina Dee MD, MPH [address] [place] [address], [place] [phone] Referral ID Status Reason Start Date Expiration Date V isits Requested Visits Authorized [id number] New Request 12/16/2021 01/10/2023 1 1 Reason Comments Follow-up 6 month follow up Specialty Diagnoses / Procedures Referred By Contac t Referred To Contact Diagnoses Alcohol-induced chronic pancreatitis Procedures UPPER EUS TN ESOPHAGOGASTRODUODENOSCOPY US SCOPE W/ADJ STRXRS Sabrina Dee MD, MPH [address] [place] [phone] Referral ID Status Reason Start Date Expiration Date V isits Requested Visits Authorized [id number] New Request 06/16/2022 07/11/2023 1 1 Reason Comments Follow-up Specialty Diagnoses / Procedures Referred By Contac t Referred To Contact Diagnoses Alcohol-induced chronic pancreatitis Procedures UPPER EUS TN EGD US GUIDED TRANSMURAL INJXN/FIDUCIAL MARKER Sabrina Dee MD, MPH [address] [place] [phone] Referral ID Status Reason Start Date Expiration Date V isits Requested Visits Authorized [id number] New Request 05/11/2023 06/04/2024 1 1 Referral ID Status Reason Start Date Expiration Date V isits Requested Visits Authorized [id number] New Request 12/23/2023 01/16/2025 1 1 INFORMATION SOURCE (unrecogn ized section and content) DATE CREATED AUTHOR 03/09/2018 [facility] DATE CREATED AUTHOR AUTHOR'S ORGANIZ ATION 04/08/2021 [facility] DATE CREATED AUTHOR AUTHOR'S ORGANIZ ATION 06/18/2022 [facility] DATE CREATED AUTHOR AUTHOR'S ORGANIZ ATION 09/02/2023 [facility] DATE CREATED AUTHOR AUTHOR'S ORGANIZ ATION 01/11/2024 [facility] DATE CREATED AUTHOR AUTHOR'S ORGANIZ ATION 01/16/2024 [facility] DATE CREATED AUTHOR AUTHOR'S ORGANIZ ATION 01/20/2024 [facility] Care Teams (unrecognized sec tion and content) [...] Active Christa Lopez PA-C Emergency Provider Active Life Skills Instructor Relationship Specialty Start Date End Date Pineda Troy MD [address] [place] [phone] PCP - Referring 1 Gastroenterology 09/25/17 [facility], [facility] [address] [place] [address] PCP - General 11/28/19 Life Skills Instructor Relationship Specialty Start Date End Date Pineda Troy MD [address] [place] [phone] PCP - Referring 1 Gastroenterology 09/25/17 [facility] [address] [place] [address] PCP - General 11/28/19 Life Skills Instructor Relationship Specialty Start Date End Date Pineda Troy MD [address] [place] [phone] PCP - Referring 1 Gastroenterology 09/25/17 [facility] [address] [place] [address] PCP - General 11/28/19 Life Skills Instructor Relationship Specialty Start Date End Date Pineda Troy MD [address] [place] [phone] PCP - Referring 1 Gastroenterology 09/25/17 [facility] [address] [place] [address] PCP - General 11/28/19 Team Status: Inactive Member Role Status Dates NON STAFF Primary Care Provider Active Agustin Llanes MD Emergency Provider Active Life Skills Instructor Relationship Specialty Start Date End Date Pineda Troy MD [address] [place] [phone] PCP - Referring 1 Gastroenterology 09/25/17 [facility], [facility] [address] [place] [address] PCP - General 11/28/19 Life Skills Instructor Relationship Specialty Start Date End Date Pineda Troy MD [address] [place] [address], [place] [phone] PCP - Referring 1 Gastroenterology 09/25/17 [facility], Other [address] [place] [address] PCP - General 11/28/19 Team Status: Inactive [...] April 11, 2023 End: April 12, 2023 Life Skills Instructor Relationship Specialty Start Date End Date [facility] [address] [place], [place] PCP - General Family Medicine 03/26/23 Life Skills Instructor Relationship Specialty Start Date End Date [facility] [address] [place], [place] PCP - General Family Medicine 03/26/23 Team Status: Inactive Member Role Status Dates NON STAFF Primary Care Provider Active Start: April 18, 2023 End: April 18, 2023 Xiang Kellogg MD Emergency Provider Active Star t: April 18, 2023 End: April 18, 2023 Life Skills Instructor Relationship Specialty Start Date End Date Pineda Troy MD [address] [place] [phone] PCP - Referring 1 Gastroenterology 09/25/17 [facility] Other [address] [place] [address] PCP - General 11/28/19 Life Skills Instructor Relationship Specialty Start Date End Date [facility] [address] [place], [place] PCP - General Family Medicine 03/26/23 Life Skills Instructor Relationship Specialty Start Date End Date Pineda Troy MD PCP - Referring 1 Gastroenterology 09/25/17 [facility] Other [address] [place] [address] PCP - General 11/28/19 Life Skills Instructor Relationship Specialty Start Date End Date Pineda Troy MD PCP - Referring 1 Gastroenterology 09/25/17 [facility] Other [address] [place] [address] PCP - General 11/28/19 Goals (unrecognized section [...] BE BASED ON THE PRIMARY CLINICAL RECORDS. [employer] [facility]. provides no warranty or guarantee of the accuracy or completeness of information in this document.
--- NOTE | 2024-01-24 17:22 | CT_ITS ---
The [address] [address] Patient Name: CHIOMA BOUDREAUX MRN: [id number] date: 1970 Sex: F Assigned Patient Location: ER Current Patient Location: ER Accession/Order Number: [id number] Exam Date: 01/24/2024 18:10 Report Date: 01/24/2024 20:11 At the request of: ELENITA ROLLINS Procedure: CT abdomen pelvis wo con EXAM: CT abdomen pelvis wo con HISTORY: right upper quadrant pain affter endoscope COMPARISON: None. TECHNIQUE: Multiple axial images of the abdomen and pelvis without IV contrast administration FINDINGS: . This is a limited examination due to breathing/motion artifact. The lung bases appear clear. The heart size is normal. Mild circumferential wall thickening of the distal esophagus and proximal gastric body near the gastroesophageal junction is seen, suggestive of inflammatory process. Please correlate clinically. Patient is post cholecystectomy. Surgical clips are seen in the gallbladder fossa. The liver, spleen, pancreas and bilateral adrenal glands appear unremarkable on this limited noncontrast examination. Bilateral kidneys have an unremarkable noncontrast appearance. There is no evidence for nephrolithiasis or hydronephrosis bilaterally. No ureteral calculus is seen bilaterally. The urinary bladder appears unremarkable. Nonobstructive bowel pattern is seen. The appendix is not definitely identified. No abnormal pericecal inflammatory changes are seen. Mild wall thickening of the colon is suspected, which may represent mild (likely inflammatory) colitis. No significant free fluid or abnormal fluid collection is seen in the abdomen and pelvis. The uterus is not visualized, suggestive of prior hysterectomy. Mild aortic and iliac arterial calcification is seen without aneurysmal dilatation. The abdominal wall and visualized soft tissues appear unremarkable. No destructive osseous lesion is seen. Degenerative changes are seen at L1-L2 level and T12-L1 level with mild loss of intervertebral disc height and endplate sclerosis. CT/CT abdomen pelvis wo con IMPRESSION: Mild circumferential wall thickening of the distal esophagus and proximal gastric body near the gastroesophageal junction is seen, suggestive of inflammatory process. Please correlate clinically. Mild wall thickening of the colon is also noted, suspicious for mild (likely inflammatory) colitis. Electronically authenticated by: TARIQ BAUMAN Date: 01/24/2024 20:11
--- NOTE | 2024-01-24 17:48 | ECG_ITS ---
The [facility] Test Date: 2024-01-24 Pat Name: CHIOMA BOUDREAUX Department: Room: - Gender: Female Preparation Center Coordinator: : 1970 Requested By: Order Number: [id number] Reading MD: DESI LUNA Measurements Intervals [place] Rate: 98 P: 77 OK: 136 QRS: 74 QRSD: 72 T: 75 QT: 304 QTc: 359 Interpretive Statements 1100 Sinus rhythm 1102 Sinus arrhythmia 8305 Short QTc interval 9150 abnormal ECG Compared to ECG 12/23/2023 05:36:29 No significant changes Electronically Signed On 01-24-2024 18:28:56 EST by DESI LUNA
--- NOTE | 2024-01-24 17:57 | ED.GENADUL1 ---
HPI HPI - General Adult General Chief complaint: Abdominal Pain Stated complaint: abd pain Time Seen by Provider: 01/24/24 17:21 Source: patient Mode of arrival: walk-in History of Present Illness HPI narrative: The patient is a 53-year-old female with history of pancreatitis coming to the ER with increasing her pain, he mentioned that this increased started after she recently just had endoscopy done last week, going to the patient history she have a history of PEG tube placement and apparently they will place it again because she have a history of pancreatitis flareup and that according patient Patient denies any vomiting but the pain is epigastric radiating to her back she also denies any change in bowel movement Related Data Home Medications ?Medication ?Instructions ?Recorded ?Confirmed albuterol sulfate 90 mcg/actuation 2 puff inhalation Q6H PRN 12/11/23 12/11/23 aerosol inhaler shortness of breath or wheezing Allergies Allergy/AdvReac Type Severity Reaction Status Date / Time haloperidol (From Haldol) Allergy Intermediate Hives Verified 12/11/23 17:21 ibuprofen (From Motrin) Allergy Intermediate Hives Verified 12/11/23 17:21 tramadol Allergy Intermediate Hives Verified 12/11/23 17:21 Penicillins Allergy Unknown Anaphylaxis Verified 12/11/23 17:21 ketorolac (From Toradol) AdvReac Severe Hives Verified 12/11/23 17:21 fentanyl AdvReac Intermediate Hives Verified 12/11/23 17:21 Opioid HPI Opioid Management Most Recent Opioid Data: Last Pain Scale 8 01/24/24 18:41 01/24/24 Last MAR Pain Assessment 01/24/24 18:41 Review of Systems ROS Status of ROS 10 or more systems reviewed and unremarkable except as noted in history and below PFSH PFSH Medical History (Updated 01/24/24 @ 18:12 by Estella Beltran MD) COPD (chronic obstructive pulmonary disease) ?J44.9 - Chronic obstructive pulmonary disease, unspecified (ICD-10) Chronic pancreatitis ?K86.1 - Other chronic pancreatitis (ICD-10) Smoker ?F17.200 - Nicotine dependence, unspecified, uncomplicated (ICD-10) History of gastrostomy tube placement Surgical History (Updated 04/03/23 @ 12:10 by Marni Farley) Hx of esophagogastroduodenoscopy ?Z98.890 - Other specified postprocedural states (ICD-10) H/O colonoscopy ?Z98.890 - Other specified postprocedural states (ICD-10) Hx of cholecystectomy ?Z90.49 - Acquired absence of other specified parts of digestive tract (ICD-10) H/O: hysterectomy ?Z90.710 - Acquired absence of both cervix and uterus (ICD-10) Social History (Updated 04/03/23 @ 12:08 by Marni Farley) Smoking status: Current every day smoker Non-prescribed substance use: denies use Highest level of school completed/degree received: high school graduate Little interest or pleasure in doing things: not at all Feeling down, depressed, or hopeless: not at all Exam Narrative Exam Narrative: Nurses notes and vital signs reviewed and patient is not hypoxic. General: Well-appearing and in no apparent distress. Skin: Warm, dry, no pallor noted. No rash. Head: Normocephalic, atraumatic. Neck: Supple, non-tender. Eye: Pupils are equal, round and EOMI. No scleral icterus. Ears, Nose, Mouth, and Throat: TM are clear, no nasal mucosal hypertrophy. Oral mucosa is moist, no posterior oropharynx erythema, uvula is mid-line Cardiovascular: Regular Rate and Rhythm without murmur, gallop or rub. Respiratory: No accessory muscle use or respiratory distress. Lungs are clear to auscultation, no wheezing, rales or rhonchi Chest Wall: no tenderness Back: No midline thoracic or lumbar vertebral tenderness. No CVA tenderness Musculoskeletal: normal ROM, no calf or popliteal tenderness, no lower extremity edema/swelling GI: Abdomen is soft, non-distended. Normal bowel sounds. No masses appreciated. Epigastric discomfort on palpation, no rebound, guarding, or rigidity noted. Neurological: A&O x4. No cranial nerve dysfunction observed. No truncal ataxia. Moves all extremities. Sensation intact. Psychiatric: Cooperative and interactive. Normal mood and affect. Constitutional Vital Signs, click to edit/add: Last Vital Signs Temp 98.1 F 01/24/24 16:58 Pulse 83 01/24/24 18:42 Resp 16 01/24/24 18:42 BP 127/81 01/24/24 18:42 Pulse Ox 99 01/24/24 18:43 O2 Del Method Room Air 01/24/24 18:43 Course Vital Signs Vital signs: Vital Signs Temperature 98.1 F 01/24/24 16:58 Pulse Rate 110 H 01/24/24 16:58 Respiratory Rate 20 01/24/24 16:58 Blood Pressure 121/91 01/24/24 16:58 Pulse Oximetry 97 01/24/24 16:58 Oxygen Delivery Method Room Air 01/24/24 16:58 Temperature 98.1 F 01/24/24 16:58 Pulse Rate 83 01/24/24 18:42 Respiratory Rate 16 01/24/24 18:42 Blood Pressure 127/81 01/24/24 18:42 Pulse Oximetry 99 01/24/24 18:43 Oxygen Delivery Method Room Air 01/24/24 18:43 Medical Decision Making MDM Narrative Medical decision making narrative: Patient EKG showing sinus rhythm with a heart rate of [address] elevation or depression Lab Data Labs: Lab Results 01/24/24 Range/Units 18:07 WBC 12.8 H (4.0-11.0) 10^3/uL RBC 4.72 (4.20-5.40) 10^6/uL Hgb 15.8 (12.0-16.0) g/dL Hct 46.4 (36.0-48.0) % MCV 98.3 (81.0-99.0) fL MCH 33.5 (26.7-34.0) pg MCHC 34.1 (29.9-35.2) g/dL RDW 12.0 (11.0-15.0) % Plt Count 318 (150-450) 10^3/uL MPV 9.3 L (9.5-13.5) fL Neut % (Auto) 67.2 (43.0-75.0) % Lymph % (Auto) 21.8 (20.5-60.0) % [place] % (Auto) 9.9 (1.7-12.0) % Eos % (Auto) 0.4 L (0.9-7.0) % Baso % (Auto) 0.5 (0.2-2.0) % Neut # (Auto) 8.6 H (1.4-6.5) 10^3/uL Lymph # (Auto) 2.8 (1.2-3.8) 10^3/uL [place] # (Auto) 1.3 H (0.3-0.8) 10^3/uL Eos # (Auto) 0.1 (0.0-0.7) 10^3/uL Baso # (Auto) 0.1 (0.0-0.1) 10^3/uL Abs Immat Gran (auto) 0.03 (0.00-0.03) 10^3/uL Imm/Tot Granulo (auto) 0.2 (0.0-0.5) % Sodium 139 (136-145) mmol/L Potassium 3.7 (3.5-5.1) mmol/L Chloride 105 (98-107) mmol/L Carbon Dioxide 25.5 (21.0-32.0) mmol/L Anion Gap 12.2 BUN 12.0 (7.0-18.0) mg/dL Creatinine 0.90 (0.55-1.02) mg/dL Est GFR ( Amer) >60 (>=60 mL/min/1.73m^2) Est GFR (Non-Af Amer) >60 (>=60 mL/min/1.73m^2) BUN/Creatinine Ratio 13.3 Glucose 111 H (74-106) mg/dL Calcium 10.4 H (8.5-10.1) mg/dL Total Bilirubin 0.2 (0.2-1.0) mg/dL AST 12 L (15-37) U/L ALT 17 (14-59) U/L Alkaline Phosphatase 152 H (46-116) U/L Troponin I High Sens <4.0 L (4.0-51.3) pg/mL Total Protein 7.4 (6.4-8.2) g/dL Albumin 3.8 (3.4-5.0) g/dL Globulin 3.6 g/dL Albumin/Globulin Ratio 1.1 Lipase 300.0 H (16.0-77.0) U/L Ethanol Quant <3 mg/dL Discharge Plan Discharge Patient Disposition: Still a Patient
[2024-01-24 18:14] LABS: Basophils Absolute Auto 0.1 10^3/uL (0.0-0.1); Basophils Percent Auto 0.5 % (0.2-2.0); Eosinophils Absolute Auto 0.1 10^3/uL (0.0-0.7); Eosinophils Percent Auto 0.4 % (0.9-7.0); Hematocrit 46.4 % (36.0-48.0); Hemoglobin 15.8 g/dL (12.0-16.0); Immature Granulocytes Abs Auto 0.03 10^3/uL (0.00-0.03); Immature Granulocytes Pct Auto 0.2 % (0.0-0.5); Lymphocytes Absolute Auto 2.8 10^3/uL (1.2-3.8); Lymphocytes Percent Auto 21.8 % (20.5-60.0); Mean Corpuscular HGB Conc 34.1 g/dL (29.9-35.2); Mean Corpuscular Hemoglobin 33.5 pg (26.7-34.0); Mean Corpuscular Volume 98.3 fL (81.0-99.0); Mean Platelet Volume 9.3 fL (9.5-13.5); Monocytes Absolute Auto 1.3 10^3/uL (0.3-0.8); Monocytes Percent Auto 9.9 % (1.7-12.0); Neutrophils Absolute Auto 8.6 10^3/uL (1.4-6.5); Neutrophils Percent Auto 67.2 % (43.0-75.0); Platelet Count 318 10^3/uL (150-450); Red Blood Count 4.72 10^6/uL (4.20-5.40); White Blood Count 12.8 10^3/uL (4.0-11.0)
[2024-01-24 18:25] LABS: Ethanol <3 mg/dL
[2024-01-24 18:33] LABS: Alanine Aminotransferase 17 U/L (14-59); Albumin Globulin Ratio 1.1; Albumin Level 3.8 g/dL (3.4-5.0); Alkaline Phosphatase 152 U/L (46-116); Anion Gap 12.2; Aspartate Amino Transferase 12 U/L (15-37); BUN Creatinine Ratio 13.3; Bilirubin Total 0.2 mg/dL (0.2-1.0); Calcium 10.4 mg/dL (8.5-10.1); Carbon Dioxide 25.5 mmol/L (21.0-32.0); Chloride 105 mmol/L (98-107); Estimated GFR (African America >60 (>=60 mL/min/1.73m^2); Estimated GFR (Non-African Ame >60 (>=60 mL/min/1.73m^2); Globulin 3.6 g/dL; Glucose 111 mg/dL (74-106); Potassium 3.7 mmol/L (3.5-5.1); Sodium 139 mmol/L (136-145); Total Protein 7.4 g/dL (6.4-8.2); Troponin I High Sensitivity <4.0 pg/mL (4.0-51.3)
[2024-01-24] MEDS: MORPHINE SULFATE 2 MG/ML SYRINGE IV (18:41)
== END 2024-01-24 20:51 | disposition left against medical advice (07) ==
PROVIDERS: Emergency Medicine; Emergency Provider Internal Medicine
DX: R10.9 Unspecified abdominal pain (principal); Z90.49 Acquired absence of other specified parts of digestive tract; Z53.29 Procedure and treatment not carried out because of patient's decision for other reasons; F17.200 Nicotine dependence, unspecified, uncomplicated; R79.89 Other specified abnormal findings of blood chemistry
CPT/HCPCS: 36415; 74176; 80053; 80307; 80320; 83690; 84484; 85025; 93005; 96374; 99285; J2270

== ENCOUNTER 2024-05-03 01:24 | Emergency (ER) | payer OTHER, SELFPAY ==
[2024-05-03 01:26] VITALS: BP 148/81; PULSE 88; TEMP 36.7; O2SAT 99; BMI 24.7
[2024-05-03 01:30] VITALS: O2SAT 97
--- NOTE | 2024-05-03 01:34 | ED_ITS ---
HPI - Abdominal Pain General Chief Complaint: Abdominal Pain Stated Complaint: ABDOMINAL PAIN Time Seen by Provider: 05/03/24 01:26 Source: patient Mode of arrival: ambulance Limitations: no limitations History of Present Illness HPI narrative: This 53-year-old female with a history of chronic pancreatitis who is managed at [facility] by a document control associate presents for evaluation of upper abdominal pain with nausea vomiting and diarrhea. Sometimes started yesterday. She feels that she has vomited approximately 10 times today and had 30 episodes of diarrhea. The patient states that last month she had a endoscopy with a pancreatic nerve block but it did not work. She is supposed to go back to [facility] and get another endoscopy next month. She states she was formally on proton pump inhibitors but she has been taken off of it at this time. She has not had a fever or cough. She denies any chest pain or shortness of breath. She has had her gallbladder removed and has had to have a feeding tube in the past for her pancreatitis. Related Data Home Medications ?Medication ?Instructions ?Recorded ?Confirmed albuterol sulfate 90 mcg/actuation 2 puff inhalation Q6H PRN 12/11/23 12/11/23 aerosol inhaler shortness of breath or wheezing famotidine 20 mg tablet 20 mg PO Q12H PRN GERD 05/03/24 05/03/24 hydrocodone 5 mg-acetaminophen 325 1 tab PO Q6H PRN pain 05/03/24 05/03/24 mg tablet Allergies Allergy/AdvReac Type Severity Reaction Status Date / Time haloperidol (From Haldol) Allergy Intermediate Hives Verified 05/03/24 01:32 ibuprofen (From Motrin) Allergy Intermediate Hives Verified 05/03/24 01:32 tramadol Allergy Intermediate Hives Verified 05/03/24 01:32 Penicillins Allergy Unknown Anaphylaxis Verified 05/03/24 01:32 morphine Allergy swells Verified 05/03/24 01:32 prochlorperazine (From Allergy Hives Verified 05/03/24 01:32 Compazine) ketorolac (From Toradol) AdvReac Severe Hives Verified 05/03/24 01:32 fentanyl AdvReac Intermediate Hives Verified 05/03/24 01:32 [facility] Medical History (Updated 05/03/24 @ 04:21 by María Johnson MD) COPD (chronic obstructive pulmonary disease) ?J44.9 - Chronic obstructive pulmonary disease, unspecified (ICD-10) Chronic pancreatitis ?K86.1 - Other chronic pancreatitis (ICD-10) Smoker ?F17.200 - Nicotine dependence, unspecified, uncomplicated (ICD-10) History of gastrostomy tube placement Surgical History (Updated 04/03/23 @ 12:10 by Marni Farley) Hx of esophagogastroduodenoscopy ?Z98.890 - Other specified postprocedural states (ICD-10) H/O colonoscopy ?Z98.890 - Other specified postprocedural states (ICD-10) Hx of cholecystectomy ?Z90.49 - Acquired absence of other specified parts of digestive tract (ICD- 10) H/O: hysterectomy ?Z90.710 - Acquired absence of both cervix and uterus (ICD-10) Social History (Updated 04/03/23 @ 12:08 by Marni Farley) Smoking status: Current every day smoker Non-prescribed substance use: denies use Highest level of school completed/degree received: high school graduate Little interest or pleasure in doing things: not at all Feeling down, depressed, or hopeless: not at all Exam Constitutional Vital Signs, click to edit/add: Last Vital Signs Temp 98.1 F 05/03/24 01:26 Pulse 88 05/03/24 01:26 Resp 16 05/03/24 01:26 BP 148/81 H 05/03/24 01:26 Pulse Ox 97 05/03/24 01:30 O2 Del Method Room Air 05/03/24 01:30 Course Vital Signs Vital signs: Vital Signs Temperature 98.1 F 05/03/24 01:26 Pulse Rate 88 05/03/24 01:26 Respiratory Rate 16 05/03/24 01:26 Blood Pressure 148/81 H 05/03/24 01:26 Pulse Oximetry 99 05/03/24 01:26 Oxygen Delivery Method Room Air 05/03/24 01:26 Temperature 98.1 F 05/03/24 01:26 Pulse Rate 88 05/03/24 01:26 Respiratory Rate 16 05/03/24 01:26 Blood Pressure 148/81 H 05/03/24 01:26 Pulse Oximetry 97 05/03/24 01:30 Oxygen Delivery Method Room Air 05/03/24 01:30 MDM - Abdominal Pain MDM Narrative Medical decision making narrative: This 53-year-old female with a history of chronic pancreatitis presents for evaluation and states that she is having a flare of her chronic pancreatitis. She has been having nausea vomiting and diarrhea which is typical of her chronic pancreatitis flare. She denies any fever. She has some mild epigastric tenderness. Her vital signs are stable. She is not toxic in appearance. She has had multiple CT scans and MRIs and endoscopies. She is currently receiving nerve blocks via endoscopy from a document control associate at [facility]. She states the last nerve block did not work and she is supposed to have another 1 next month. An IV was placed and she was medicated with IV fluids, Zofran, Pepcid and Dilaudid. Routine labs are ordered and are reviewed. She has a normal white count and hemoglobin. Electrolytes are normal. CRP is normal. Amylase is 200 and lipase is 180. This is similar to previous labs. Alkaline phosphatase is mildly elevated with the remainder of her liver function tests are normal. She declined a CT scan as she has had multiple radiographic studies in the past and x-ray of her abdomen and chest was ordered. X-ray shows nonspecific bowel gas pattern with no free air. Chest x-ray component is normal. Patient was reevaluated and is feeling better and tolerating ice chips. She did mention to me that she developed a single hive adjacent to her IV after being given a dose of Zofran and Pepcid. She has had both of these medications multiple times in the past. She was given 12.5 mg of IV Benadryl for the hive. She does not have other allergic reactions at this time. She is tolerating ice chips and I anticipate she will be able to be discharged home. X-ray of chest and abdomen was reviewed by radiology and shows no acute process in the chest with mild constipation throughout the colon, nonobstructive bowel gas pattern, status post cholecystectomy with mild level convex curve to the mid to lower lumbar spine consistent with scoliosis. There is no lytic or blastic lesions noted no free air in the upper abdomen. On reevaluation she appears quite comfortable but states that the ice chips upset her stomach. I offered her 1 more round of pain medication and nausea medication and stated after that she would either need to be admitted or discharged home with prescriptions for her symptoms. She is agreeable to this. On reevaluation she states she is feeling better and is called for her ride. She will be discharged home with prescription for Zofran and given 2 Percocet to use as needed for ongoing pain throughout the day. She was encouraged to follow-up closely with her document control associate. Lab Data Labs: Lab Results 05/03/24 Range/Units 01:43 WBC 11.7 H (4.0-11.0) 10^3/uL RBC 4.04 L (4.20-5.40) 10^6/uL Hgb 13.5 (12.0-16.0) g/dL Hct 39.8 (36.0-48.0) % MCV 98.5 (81.0-99.0) fL MCH 33.4 (26.7-34.0) pg MCHC 33.9 (29.9-35.2) g/dL RDW 12.8 (11.0-15.0) % Plt Count 289 (150-450) 10^3/uL MPV 9.4 L (9.5-13.5) fL Neut % (Auto) 59.0 (43.0-75.0) % Lymph % (Auto) 30.0 (20.5-60.0) % [place] % (Auto) 8.4 (1.7-12.0) % Eos % (Auto) 1.5 (0.9-7.0) % Baso % (Auto) 0.9 (0.2-2.0) % Neut # (Auto) 6.9 H (1.4-6.5) 10^3/uL Lymph # (Auto) 3.5 (1.2-3.8) 10^3/uL [place] # (Auto) 1.0 H (0.3-0.8) 10^3/uL Eos # (Auto) 0.2 (0.0-0.7) 10^3/uL Baso # (Auto) 0.1 (0.0-0.1) 10^3/uL Abs Immat Gran (auto) 0.02 (0.00-0.03) 10^3/uL Imm/Tot Granulo (auto) 0.2 (0.0-0.5) % Sodium 142 (136-145) mmol/L Potassium 3.5 (3.5-5.1) mmol/L Chloride 105 (98-107) mmol/L Carbon Dioxide 28.6 (21.0-32.0) mmol/L Anion Gap 11.9 BUN 10.0 (7.0-18.0) mg/dL Creatinine 0.90 (0.55-1.02) mg/dL Est GFR ( Amer) >60 (>=60 mL/min/1.73m^2) Est GFR (Non-Af Amer) >60 (>=60 mL/min/1.73m^2) BUN/Creatinine Ratio 11.1 Glucose 110 H (74-106) mg/dL Lactate 1.3 (0.4-2.0) mmol/L Calcium 10.6 H (8.5-10.1) mg/dL Total Bilirubin 0.1 L (0.2-1.0) mg/dL AST 23 (15-37) U/L ALT 29 (14-59) U/L Alkaline Phosphatase 133 H (46-116) U/L C-Reactive Protein <0.50 (<=0.50) mg/dL Total Protein 6.7 (6.4-8.2) g/dL Albumin 3.4 (3.4-5.0) g/dL Globulin 3.3 g/dL Albumin/Globulin Ratio 1.0 Amylase 200 H (25-115) U/L Lipase 180.0 H (16.0-77.0) U/L Discharge Plan Discharge Chief Complaint: Abdominal Pain Clinical Impression: Abdominal pain, Chronic pancreatitis Patient Disposition: Home, Self-Care Time of Disposition Decision: 04:21 Condition: Good Prescriptions / Home Meds: No Action albuterol sulfate 90 mcg/actuation HFA aerosol inhaler 2 puff INHALATION Q6H PRN (Reason: shortness of breath or wheezing) famotidine 20 mg tablet 20 mg PO Q12H PRN (Reason: GERD) hydrocodone-acetaminophen 5-325 mg tablet 1 tab PO Q6H PRN (Reason: pain) Print Language: [place] Instructions: Chronic Abdominal Pain (DC) Referrals: Physician,Non-Staff, MD [Primary Care Provider] - 1 week
[2024-05-03 01:54] LABS: Basophils Absolute Auto 0.1 10^3/uL (0.0-0.1); Basophils Percent Auto 0.9 % (0.2-2.0); Eosinophils Absolute Auto 0.2 10^3/uL (0.0-0.7); Eosinophils Percent Auto 1.5 % (0.9-7.0); Hematocrit 39.8 % (36.0-48.0); Hemoglobin 13.5 g/dL (12.0-16.0); Immature Granulocytes Abs Auto 0.02 10^3/uL (0.00-0.03); Immature Granulocytes Pct Auto 0.2 % (0.0-0.5); Lymphocytes Absolute Auto 3.5 10^3/uL (1.2-3.8); Mean Corpuscular HGB Conc 33.9 g/dL (29.9-35.2); Mean Corpuscular Hemoglobin 33.4 pg (26.7-34.0); Mean Corpuscular Volume 98.5 fL (81.0-99.0); Mean Platelet Volume 9.4 fL (9.5-13.5); Monocytes Percent Auto 8.4 % (1.7-12.0); Neutrophils Absolute Auto 6.9 10^3/uL (1.4-6.5); Platelet Count 289 10^3/uL (150-450); Red Blood Count 4.04 10^6/uL (4.20-5.40); Red Cell Distribution Width 12.8 % (11.0-15.0); White Blood Count 11.7 10^3/uL (4.0-11.0)
[2024-05-03] MEDS: FAMOTIDINE/PF 20 MG/2 ML VIAL IV (02:09)
[2024-05-03] MEDS: 0.9 % SODIUM CHLORIDE 1,000 ML 1000 ML IV (02:09)
[2024-05-03] MEDS: HYDROMORPHONE HCL 1 MG/ML CARTRIDGE IV ×2 (02:10→03:45)
[2024-05-03] MEDS: ONDANSETRON PF 4 MG/2 ML VIAL IV ×2 (02:10→03:45)
[2024-05-03 02:13] LABS: Lactate/Lactic Acid 1.3 mmol/L (0.4-2.0)
--- OUTSIDE RECORDS SUMMARY | 2024-05-03 02:14 | XMS_ITS | CCD ---
Author Organization [facility] Care Team Providers Care 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 Operator Name Role Phone LiElie Unavailable LI KEWA Unavailable Unavailable COPC SACHIN, GENERIC Unavailable Unavailable COPC SACHIN, GENERIC Unavailable Unavailable BESSIE NEGROROCKY Unavailable Unavailable LI, KEWA Unavailable Unavailable JOANA MENDES Unavailable Unavailable LI, KEWA Unavailable Unavailable ERROL WALTON Unavailable Unavaila arleen LI KEWA Unavailable Unavailable KEERTHI NGUYEN Unavailable Unavailable COPC SACHIN, GENERIC Unavailable Unavailable KEERTHI NGUYEN ANN Unavailable Unavailable LI, KEWA Unavailable Unavailable PHYSICIANS, [facility] Unavailable Unav ailable EUGENIA SHELTON Unavailable Unavailable [facility]YSICI[facility], [facility] Unavailable Unav ailable Unavailable Primary Care Provider Unavailabl e MagdalenaElie Primary Care Provider [phone] Unavailable Primary Care Provider UnavailMarya Guajardo Unavailable NON STAFF Primary Care Provider UnavailDO Keaton Thompson Emergency Provider SALMA Amor Emergency Provider [phone] SALMA Lopez Emergency Provider [phone] Woodrow ALEXANDER, Pineda Espinal Unavailable [facility], Other Primary Care Provi mathew NON STAFF Primary Care Provider UnavailMD Agustin Varela Emergency Provider [phone] DR TRI HANSON Consulting Unavailable ARIC CHAUDHARY Attending Unavailable ARIC CHAUDHARY Admitting Unavailable [facility] Primary Care Unavailable ARIC CHAUDHARY Consulting Unavailable AGUSTIN MADRIGAL Consulting Unavailable YANNI FRASER Attending Unavailable YANNI FRASER Admitting Unavailable [facility] Primary Care Unavailable HEBERT MCPHERSON Consulting Unavailable DR RAJEEV KELLOGG Consulting Unavailable AMINATA, DR RAJEEV Chan Attending Unavailable AMINATA, DR RAJEEV Cahn Admitting Unavailable [facility] Primary Care Unavailable JANNY ., ANKIT BOYKIN Consulting Unavailabl e IGGY ., MONIK Attending Unavailable IGGY ., MONIK Admitting Unavailable GRECHNY ., ANKIT BOYKIN [facility]available ANNELIESE, NICK Consulting Unavailable JANUSZ ., ARIC Consulting Unavailable AGUSTIN HIGHTOWER Consulting Unavailable ROLAN EUCEDA Consulting Unavailable AMINATA, DR RAJEEV Chan Consulting Unavailable BRIANNA, DR SHARON Silveira Attending Unavailabl e REINECK, DR SHARON Silveira Ad[facility] Unavailable BRIANNA, DR SHARON Silveira Consulting Unavailabl e HANS ., NAT Consulting Unavailable HANS ., NAT Consulting Unavailable PAY ., DR MACEDO Attending Unavailable PAY ., DR MACEDO Admitting Unavailable [facility] Primary Care Unavailable ANNELIESE, NICK Consulting Unavailable ANNELIESE, NICK Attending Unavailable ANNELIESE, NICK Admitting Unavailable [facility] Primary Care Unavailable MILADIS BARRERA Consulting Unavailable JANUSZ ., ARIC Attending Unavailable JANUSZ ., ARIC Admitting Unavailable JNAUSZ ., ARIC Consulting Unavailable [facility] Primary Care Unavailable ION KRUSE Consulting Unavailable YANNI FRASER Attending Unavailable YANNI FRASER Admitting Unavailable JANNY ., ANKIT BOYKIN [facility]ing [facility] Unavailable LYNNE PERDOMO Consulting Unavailable JANUSZ ., ARIC Attending Unavailable JANUSZ ., ARIC Admitting Unavailable [facility] Primary Care Unavailable JANUSZ ., ARIC Consulting Unavailable DIAB ., ELENITA Consulting Unavailable DIAB ., ELENITA Attending Unavailable DIAB ., ELENITA Admitting Unavailable [facility] Primary Care Unavailable PAY ., DR MACEDO Consulting Unavailable PAY ., DR MACEDO Attending Unavailable PAY ., DR MACEDO Admitting Unavailable [facility] Primary Care Unavailable ANNELIESE, NICK Consulting Unavailable ANNELIESE, NICK Attending Unavailable ANNELIESE, NICK Admitting Unavailable [facility] Primary Care Unavailable AGUSTIN HIGHTOWER Consulting Unavailable AMINATA, DR RAJEEV Chan Consulting Unavailable TANVIR ., DR GRANT Attending Unavailable TANVIR ., DR GRANT Admitting Unavailable [facility] Primary Care Unavailable HAY ., DR GRANT Consulting Unavailable NON STAFF Primary Care Provider Unavailabl e Saffle, YARD MOTOR OPERATOR Nicole N Emergency Provider NON STAFF Primary Care Provider Unavailabl e Saffle, YARD MOTOR OPERATOR Nicole N Emergency Provider DO Rivera Lopez Emergency Provider MD Xiang Kellogg Emergency Provider Woodrow ALEXANDER, Pineda Espinal Unavailable [facility], Other Primary Care Provi mathew NON STAFF Primary Care Unavailable Saffle, Nicole N Admitting Unavailable Saffle, Nicole N Attending Unavailable NON STAFF Primary Care Unavailable Rivera Lopez Admitting Unavailable Rivera Lopez Attending Unavailable Safdeannee, Nicole N Attending Unavailable NON STAFF Primary Care Unavailable Safdeannee, Nicole N Admitting Unavailable NON STAFF Primary Care Unavailable Xiang Kellogg Admitting Unavailable Xiang Kellogg Attending Unavailable Woodrow ALEXANDER, Pineda Espinal Unavailable LUZ MARIA DEESHKALRA Silveira Attending Unavailabl e [facility], OTHER Primary Care Un available SELF, SELF Referring Unavailable STEVESABRINA Attending Unavailabl e SABRINA DEE Referring Unavailabl e [facility], OTHER Primary Care Un available STEVE SOMASHEKAR G Referring Unavailabl e [facility], OTHER Primary Care Un available STEVESABRINA JEAN Attending Unavailabl e SERVICES, [facility] Primary Care Unava ilable STEPHANIE MAHMOOD Attending Unavailable SERVICES, [facility] Primary Care Unava ilable VIC BIRM[place]AM Attending Unavailable [facility]IC [place] Attending Unavailable [facility] [place] Referring Unavailable SERVICES, [facility] Primary Care Unava ilable SERVICES, [facility] Primary Care Unava ilable TABITHA NEWELL Attending Unavailable SERVICES, [facility] Primary Care Unava ilable TABITHA NEWELL Attending Unavailable SERVICES, [facility] Primary Care Unava ilable AGUSTIN MICHAEL Attending Unavailab TABITHA Thorne Attending Unavailable TABITHA NEWELL Referring Unavailable SERVICES, [facility] Primary Care Unava ilable TABITHA NEWELL Attending Unavailable TABITHA NEWELL Referring Unavailable SERVICES, [facility] Primary Care Unava ilable Unavailable Primary Care Provider Unavailabl e BRIANAI, PETER T Attending Unavailable Services, [facility] Primary Care Provider Allergies Allergy Classification Reported Allergen(s) Allergy Type Date of Onset Reaction(s) Facility DOPamine Antagonists (1 source) Metoclopramide Drug Allergy 07-20-19 17 Anxiety [facility] Haloperidol (1 source) Haloperidol Drug Allergy 06-02-19 16 [facility] NSAIDs (1 source) Ibuprofen Drug Allergy 10-31-19 13 Hives, Swelling [facility] Opioid Agonists (2 sources) Morphine Drug Allergy 10-24-19 15 [facility] Penicillins (antibiotic) (1 source) Penicillins Drug Allergy 10-31-19 13 Swelling [facility] Work Phone: (20 sources) haloperidol; Translations: [HALOPERIDOL] Propensity to adverse reactions to drug 06-02-19 16 [facility] (20 sources) ibuprofen; Translations: [IBUPROFEN] Propensity to adverse reactions to drug 10-31-19 13 Hives, Swelling, Anaphylaxis [facility] (6 sources) metoclopramide; Translations: [METOCLOPRAMIDE HCL] Propensity to adverse reactions to drug 07-01-19 17 [facility] (6 sources) penicillin g; Translations: [PENICILLIN G] Propensity to adverse reactions to drug 07-25-19 15 Anaphylaxis [facility] (20 sources) traMADol; Translations: [TRAMADOL] Propensity to adverse reactions to drug 07-25-19 15 [facility] (20 sources) morphine; Translations: [MORPHINE] Drug Allergy 07-16-19 18 [facility] (8 sources) Enoxaparin; Translations: [ENOXAPARIN] Drug Allergy 08-23-19 20 Itching, Rash [place], [place] (5 sources) Haloperidol Drug Allergy 10-20-19 18 Swelling [place], [place] (16 sources) Penicillins; Translations: [PENICILLINS] Propensity to adverse reactions to drug 10-31-19 13 Anaphylaxis, Swelling [place], [place] (2 sources) Haloperidol; Translations: [Haldol] Drug Allergy 08-10-19 19 Unknown [facility] Repository (15 sources) fentaNYL; Translations: [Fentanyl] Drug Allergy 09-13-19 21 [facility] (13 sources) Ketorolac; Translations: [ketorolac] Drug Allergy 06-13-19 21 [facility] (6 sources) Ketorolac Drug Allergy 12-17-19 22 Hives, Itching [facility] (11 sources) Metoclopramide; Translations: [METOCLOPRAMIDE] Drug Allergy 07-01-19 17 Anxiety [facility] (1 source) Ibuprofen Drug Allergy 01-09-20 13 [facility] Repository (1 source) Ketorolac Drug Allergy [facility] Rep[facility] (1 source) Morphine Drug Allergy 08-10-19 19 [facility] Repository (1 source) Penicillins Drug allergy (disorder) 01-09-20 13 [facility] Rep[facility] (1 source) traMADol Drug Allergy 01-09-20 13 [facility] Rep[facility] (3 sources) Ketorolac trometamol Propensity to adverse reactions to drug 12-17-19 22 Hives, Itching [facility] (2 sources) Penicillins Propensity to adverse reactions to drug 10-31-19 13 Swelling [facility] Work Phone: (1 source) Haloperidol Drug Allergy 04-18-19 [facility] Rep[facility] (1 source) Ibuprofen Drug Allergy 04-18-19 [facility] (1 source) Morphine Drug Allergy 04-18-19 [facility] (1 source) Penicillins Drug allergy (disorder) 04-18-19 [facility] (1 source) traMADol Drug Allergy 04-18-19 [facility] (1 source) Prochlorperazine; Translations: [PROCHLORPERAZINE] Drug Allergy 03-18-19 25 [facility] Rep[facility] (7 sources) Penicillins Propensity to adverse reactions to drug 10-10-19 18 Anaphylaxis [facility] Medications Current Medications Medication Drug Class(es) Dates Sig (Normalized) Sig (Original) Acetaminophen (1 source) Start: 08-23-2019 acetaminophen (TYLENOL) tablet 650 mg acetaminophen 325 mg / HYDROcodone bitartrate 5 mg oral tablet (17 sources) Opioid Agonist Start: 04-07-2024 End: 04-10-2024 HYDROcodone-acetamin ophen (NORCO) 5-325 MG per tablet Indications: Acute pancreatitis without infection or necrosis, unspecified pancreatitis type Take 1 tablet by mouth every 6 hours as needed for Pain for up to 3 days. Intended supply: 3 days. Take lowest dose possible to manage pain Max Daily Amount: 4 tablets 12 tablet 04/07/2024 04/10/2024 Active Start: 09-29-2023 This order is for a take home starter pack of medication. Please document Furnish to patient on the MAR. Start: 09-29-2023 End: 10-06-2023 HYDROcodone-acetaminophen (N ORCO) 5-325 MG per tablet Take 1 tablet by mouth every 4 hours as needed for Pain for up to 7 days. Intended supply: 7 days. Take lowest dose possible to manage pain Max Daily Amount: 6 tablets 12 tablet 0 09/29/2023 10/06/2023 Active Start: 10-08-2020 End: 11-20-2020 take 1 tablet by mouth every four to six hours Hydrocodone-Acetaminophen Discontinued 1 TAB PO EVERY 4-6 HOURS 6 3 October 08, 2020 November 20, 2020 5:23pm Start: 04-19-2020 End: 05-31-2020 take 1 tablet by mouth every six hours Hydrocodone-Acetaminophen Discontinued 1 TAB PO Q6H 10 3 April 19, 2020 May 31, 2020 2:51pm amitriptyline hydrochloride 25 mg oral tablet (20 [...] 30 tablet 11 12/01/2019 05/11/2023 Discontinued amylase 164551 unt / lipase 45312 unt / protease 98080 unt delayed release oral capsule (19 sources) Start: 12-23-2023 take 3 capsules by mouth twice daily at mealtime Pancreatic enzymes (Creon) 00568-[address]-206518 units Cap DR Particles capsule Take 3 capsules by mouth 2 times daily with meals. 180 capsule 11 12/23/2023 Active Start: 05-11-2023 take 3 capsules by m outh twice daily at mealtime Pancreatic enzymes (Creon) 75822-[address] Particles capsule Take 3 capsules by mouth 2 times daily with meals. 180 capsule 11 05/11/2023 Active Start: 12-16-2021 End: 05-11-2023 take 2 capsules by mouth three times daily at mealtime Pancreatic enzymes (Creon) 40620-[address] units [address] Particles capsule Take 2 [...] by mouth every week Ergocalciferol 1.25 MG (49519 UT) capsule Take 1 capsule by mouth once a week. 8 capsule 05/11/2023 Active Start: 01-28-2022 End: 03-19-2022 take 1 capsule by mouth every week ergocalciferol 1.25 MG (18464 UT) capsule Take 1 capsule by mouth [...] mg by mouth daily . 0 Active [place] (No Known Home Meds) (1 source) Start: 10-09-2021 [place] (No Known Home Meds) Active October 09, 2021 12:00am ondansetron 4 mg disintegrating oral tablet (20 sources) Serotonin-3 Receptor Antagonist Start: 04-07-2024 take 1 tablet by mouth three times daily as needed for nausea ondansetron (ZOFRAN-ODT) 4 MG disintegrating tablet Take 1 tablet by mouth 3 times daily as needed for Nausea or Vomiting 21 tablet 04/07/2024 Active Start: 04-07-2024 End: 04-07-2024 4 mg, IntraVENous, ONCE, 1 d ose, On Eladia 04/07/24 at 1415 Start: 01-19-2024 End: 01-19-2024 4 mg, Intravenous, ONCE N EEDED, 1 dose, Starting on Thu01/19/24 at 1000, Until Thu01/19/24 at 1007, Nausea / Vomiting, FIRST line antiemetic, Do not administer within 6 hours of intra-operative dose., Recovery Start: 01-07-2024 End: 01-07-2024 4 mg, IntraVENous, ONCE, 1 d ose, On Eladia 01/07/24 at 1615 Start: 04-11-2023 take 1 tablet by sachin [...] 05-14-2017 ondansetron (ZOFRAN) injecti on 4 mg pantoprazole 40 mg delayed release oral tablet (3 sources) Proton Pump Inhibitor Start: 09-29-2023 take 1 tablet by mouth once daily before breakfast pantoprazole (PROTONIX) 40 MG tablet Take 1 tablet by mouth every morning (before breakfast) 90 tablet 1 09/29/2023 Active polyethylene glycol 3350 19822 mg powder for oral solution (1 source) Osmotic Laxative Start: 08-22-2019 17 g, Oral, DAILY PRN, Constipation, Starting 08/22/19 at 1627 First line therapy for constipation promethazine hydrochloride 25 mg oral tablet (20 sources) Phenothiazine Start: 09-29-2023 End: 10-06-2023 take 1 tablet by mouth every six hours as needed for nausea promethazine (PHENERGAN) 25 MG tablet Take 1 tablet by mouth every 6 hours as needed for Nausea 12 tablet 0 09/29/2023 10/06/2023 Active Start: 11-09-2022 End: 04-11-2023 take 25 mg [...] hours as needed for nausea. 05/14/2017 Discontinued sodium chloride flush 0.9 % injection 3 mL (1 source) Start: 09-29-2023 sodium chlorid e flush 0.9 % injection 3 mL Completed/Discontinued Medications Medication Drug Class(es) Dates Sig (Normalized) Sig (Original) acetaminophen 325 mg / oxyCODONE hydrochloride 5 mg oral tablet (14 sources) Opioid Agonist Start: 10-04-2021 End: 10-09-2021 take 1 tablet by mouth every six hours Oxycodone-Acetamino phen (Percocet) 5-325 mg tablet Discontinued 1 TAB [...] 05-14-2017 fentaNYL (SUBLIMAZE) injecti on 50 mcg 0.5 ml HYDROmorphone hydrochloride 1 mg/ml prefilled syringe (14 sources) Opioid Agonist Start: 04-07-2024 End: 04-07-2024 1 mg, IntraVENous, ONCE, 1 dose, On Eladia 04/07/24 at 1630 Start: 04-07-2024 End: 04-07-2024 1 mg, IntraVENous, ONCE, 1 d ose, On Eladia 04/07/24 at 1415 Start: 01-19-2024 End: 01-20-2024 0.5 mg, Intravenous, EVERY 1 0 MINUTES NEEDED, 8 doses, Starting on Thu01/19/24 at 1000, Until Thu01/20/24 at 0235, Moderate Pain, Severe Pain, May give a total of 4mg in PACU., Recovery Start: 01-07-2024 End: 01-07-2024 take 1 dose by mouth every hour 1 mg, IntraVENous, ONC E, 1 dose, On Eladia 01/07/24 at 1615, If oral and IV narcotics ordered, use oral first and only use IV if oral is ineffective or cannot take oral. Do Not give oral and IV within 1 hour of each other unless specifically ordered. Start: 09-29-2023 End: 09-29-2023 HYDROmorphone HCl PF (DILAUD ID) injection 0.5 mg Start: 09-08-2023 End: 09-09-2023 take 0.5 mg [...] iopamidol (ISOVUE-370) 76 % injection 75 mL (2 sources) Start: 04-07-2024 End: 04-07-2024 take 1 dose intravenously once 75 mL, IntraVENous, IMG ONCE PRN, 1 dose, Starting on Eladia 04/07/24 at 1537, Until Eladia 04/07/24 at 1543, Other Start: 03-26-2020 End: 03-26-2020 iopamidol (ISOVUE-370) 76 [...] oxyCODONE (ROXICODONE) immediate release tablet 5 mg pantoprazole (PROTONIX) 80 mg in sodium chloride 0.9 % 50 mL bolus (1 source) Start: 09-29-2023 End: 09-29-2023 pantoprazole (PROTONIX) 80 mg in sodium chloride 0.9 % 50 mL bolus 100 ml potassium chloride 0.1 meq/ml injection (1 source) Start: 09-29-2023 End: 09-29-2023 potassium chloride 10 mEq/100 mL IVPB (Peripheral Line) prochlorperazine 5 mg/ml injectable solution (2 sources) Phenothiazine Start: 09-29-2023 End: 09-29-2023 prochlorperazine (COMPAZINE) injection 10 mg Start: 05-14-2017 End: 05-15-2017 take 5 mg by intramuscular injection every six hours a s needed 50 ml sodium chloride 9 mg/m l injection (16 sources) Start: 04-07-2024 End: 04-07-2024 1,000 mL (17.6 mL/kg), IntraVENous, at 1,000 mL/hr, Administer over 1 Hours, ONCE, On Eladia 04/07/24 at 1415, For 1 dose Start: 01-07-2024 End: 01-07-2024 1,000 mL (18.4 mL/kg), IntraVENous, at 983.6 mL/hr, Administer over 61 Minutes, ONCE, On Eladia 01/07/24 at 1445, For 1 dose, For adult patients weighing > 55 kg (120 lbs.) and less than Start: 09-29-2023 End: 09-29-2023 sodium chloride 0.9 % bolus 1,000 mL Start: 03-26-2020 End: 03-26-2020 0.9 % sodium chloride bolus Start: 08-22-2019 10 mL, Intrave nous, EVERY 12 HOURS SCHEDULED (2 times per day), First dose on 08/22/19 at 2100 Start: 08-22-2019 Intravenous, a t [...] 80 mg, Infiltration, ONCE, 1 dose, On 01/19/24 at 1015 Start: 09-08-2023 End: 09-08-2023 80 [...] Other residential (current) drug therapy; Translations: [OTH CORRECTION CURRENT DRUG THERAPY] Onset: 3 Episodic Other [...] 06-28-2015 06-28-2015 Chronic Fluid and electrolyte disorders (3 sources) Dehydration; Translations: [Hypokalemia] Onset: 07-23-2021 09-29-2023 Episodic Immunizations and screening for infectious disease [...] Test Name Value Interpretation Reference Range Facility Basic Metabolic Panelon 03-11 Anion gap [Moles/Vol] 8 mmol/L Low 9 - 16 mmol/L [facility] Calcium [Mass/Vol] 8.3 mg/dL Low 8.6 - 10. 4 mg/dL [facility] Chloride [Moles/Vol] 108 mmol/L High 98 - 10 7 mmol/L [facility] CO2 [Moles/Vol] 23 mmol/L 20 - 31 mmol/L [facility] Creatinine [Mass/Vol] 0.6 mg/dL 0.50 - 0.90 mg/dL [facility] Est, Kaylyn Reyest Rate - PINF [facility] Comment on above: These results are not intended for use [...] following therapy that affects renal tubular secretion. Glucose [Mass/Vol] 83 mg/dL 74 - 99 mg/dL [facility] Potassium [Moles/Vol] 4.0 mmol/L 3.7 - 5.3 mmol/L [facility] Sodium [Moles/Vol] 139 mmol/L 136 - 145 mmol/L [facility] Urea nitrogen [Mass/Vol] 10 mg/dL 6 - 20 mg/dL [facility] Urea nitrogen/Creatinine [Mass ratio] 17 mg/mg 9 - 20 [facility] Basic Metabolic Profon 04-07 Anion gap [Moles/Vol] 8 mmol/L Low 9-16 [facility] Comment on above: Performed By: #### C REBECA PAYNE, CP #### [facility] [address] [place] [address] Social Worker Assistant: Ion Jasso MD BUN/CRE Ratio 17 Normal - [facility] Comment on above: Performed By: #### C ELMER, LIP, CP #### [facility] [address] [place] [address] Social Worker Assistant: Ion Jasso MD Calcium [Mass/Vol] 8.3 mg/dL Low 8.6-10.4 [facility] Comment on above: Performed By: #### C REBECA PAYNE, CP #### [facility] [address] [place], [place] [id number] Social Worker Assistant: Ion Jasso MD Chloride [Moles/Vol] 108 mmol/L High 98-107 [facility] Comment on above: Performed By: #### C ELMER LIP, CP #### [facility] [address] [place], [place] [id number] Social Worker Assistant: Ion Jasso MD CO2 [Moles/Vol] 23 mmol/L Normal 20-31 [facility] Comment on above: Performed By: #### C REBECA PAYNE, CP #### [facility] [address] [place], [place] [id number] Social Worker Assistant: Ion Jasso MD Creatinine [Mass/Vol] 0.6 mg/dL Normal 0.50-0.90 [facility] Comment on above: Performed By: #### C REBECA PAYNE, CP #### [facility] [address] [place], [place] [id number] Social Worker Assistant: Ion Jasso MD GFR/1.73 sq M.predicted among non-blacks MDRD (S/P/Bld) [Vol rate/Area] mL/min/{1.73_m2} Normal >60 [facility] Comment on above: Result Comment: These results [...] renal tubular secretion. Performed By: #### C ELMER LIP, CP #### [facility] [address] [place], [place] [id number] Social Worker Assistant: Ion Jasso MD Glucose [Mass/Vol] 83 mg/dL Normal 74-99 [facility] Comment on above: Performed By: #### C REBECA PAYNE, CP #### [facility] [address] [place], [place] [id number] Social Worker Assistant: Ion Jasso MD Potassium [Moles/Vol] 4.0 mmol/L Normal 3.7-5.3 [facility] Comment on above: Performed By: #### C ELMER LIP, CP #### [facility] [address] [place], [place] [id number] Social Worker Assistant: Ion Jasso MD Sodium [Moles/Vol] 139 mmol/L Normal 136-145 [facility] Comment on above: Performed By: #### C REBECA PAYNE, CP #### [facility] [address] [place], [place] [id number] Social Worker Assistant: Ion Jasso MD Urea nitrogen [Mass/Vol] 10 mg/dL Normal 6-20 [facility] Comment on above: Performed By: #### C REBECA PAYNE, CP #### [facility] [address] [place], [place] [id number] Social Worker Assistant: Ion Jasso MD CBC with Auto Differentialon 04-07-2024 Basophils (Bld) [#/Vol] 0.08 10*3/uL [facility] Basophils/100 WBC (Bld) 1 % 0 - 2 % [facility] Eosinophils (Bld) [#/Vol] 0.13 10*3/uL [facility] Eosinophils/100 WBC (Bld) 1 % 1 - 4 % [facility] Erythrocyte distribution width (RBC) [Ratio] 13.1 % 11.8 - 14.4 % [facility] Hematocrit (Bld) [Volume fraction] 40.1 % 36.3 - 47.1 % [facility] Hemoglobin (Bld) [Mass/Vol] 14.0 g/dL 11.9 - 15.1 g/dL [facility] Immature granulocytes (Bld) [#/Vol] 0.03 10*3/uL [facility] Immature granulocytes/100 WBC (Bld) 0 % 0 [facility] Interpretation and review of laboratory results Abnormal [facility] Lymphocytes/100 WBC (Bld) 26 % 24 - 43 % [facility] Lymphocytes/100 WBC (Bld) 2.39 % [facility] MCH (RBC) [Entitic mass] 33.9 pg High 25.2 - 33.5 pg [facility] MCHC (RBC) [Mass/Vol] 34.9 g/dL High 28.4 - 34.8 g/dL [facility] MCV (RBC) [Entitic vol] 97.1 fL 82.6 - 102.9 fL [facility] Monocytes/100 WBC (Bld) 8 % 3 - 12 % [facility] Monocytes/100 WBC (Bld) 0.76 % [facility] Neutrophils/100 WBC (Bld) 64 % 36 - 65 % [facility] Nucleated RBC/100 WBC (Bld) [Ratio] 0.0 % 0.0 per 100 WBC [facility] Platelet mean volume (Bld) [Entitic vol] 10.6 fL 8.1 - 13.5 fL [facility] Platelets (Bld) [#/Vol] 267 10*3/uL [facility] RBC (Bld) [#/Vol] 4.13 10*6/uL 3.95 - 5.11 m/uL [facility] Segmented neutrophils/100 WBC (Bld) 5.87 % [facility] WBC other (Bld) [#/Vol] 9.3 [facility] CBC with Diffon 04-07-2024 Abs. Basophil 0.08 k/uL Normal 0.00-0.20 [facility] Comment on above: Performed By: #### R ANGELINE, CDP #### [facility] [address] [place] [address] Social Worker Assistant: Ion Jasso MD Abs.Imm.Granulocyte 0.03 k/uL Normal 0.00-0.30 [facility] Comment on above: Performed By: #### R ANGELINE, CDP #### [address] [place], [place] [id number] Social Worker Assistant: Ion Jasso MD Abs.Neutrophil (Seg) 5.87 k/uL Normal 1.50-8.10 [facility] Comment on above: Performed By: #### R ANGELINE, CDP #### [address] [place], [facility]83 Social Worker Assistant: Ion Jasso MD Basophils/100 WBC (Bld) 1 % Normal 0-2 [facility] Comment on above: Performed By: #### R ANGELINE, CDP #### [address] [place] [id number] Social Worker Assistant: Ion Jasso MD Eosinophils (Bld) [#/Vol] 0.13 10*3/uL Normal 0.00-0.44 [facility] Comment on above: Performed By: #### R ANGELINE, CDP #### [address] [place], [facility]83 Social Worker Assistant: Ion Jasso MD Eosinophils/100 WBC (Bld) 1 % Normal 1-4 [facility] Comment on above: Performed By: #### R ANGELINE, CDP #### [address] [place], [facility]83 Social Worker Assistant: Ion Jasso MD Erythrocyte distribution width (RBC) [Ratio] 13.1 % Normal 11.8-14.4 [facility] Comment on above: Performed By: #### R ANGELINE, CDP #### [address] [place], [place] [id number] Social Worker Assistant: Ion Jasso MD Hematocrit (Bld) [Volume fraction] 40.1 % Normal 36.3-47.1 [facility] Comment on above: Performed By: #### R EJEC, CDP #### [facility] [address] [place] [address] Social Worker Assistant: Ion Jasso MD Hemoglobin (Bld) [Mass/Vol] 14.0 g/dL Normal 11.9-15.1 [facility] Comment on above: Performed By: #### R ANGELINE, CDP #### [facility] [address] [place], [facility]83 Social Worker Assistant: Ion Jasso MD Immature granulocytes/100 WBC (Bld) 0 % Normal 0 [facility] Comment on above: Performed By: #### R ANGELINE, CDP #### [address] [place], [place] 6254583 Social Worker Assistant: Ion Jasso MD Lymphocytes (Bld) [#/Vol] 2.39 10*3/uL Normal 1.10-3.70 [facility] Comment on above: Performed By: #### R ANGELINE, CDP #### [address] [place] [address] Social Worker Assistant: Ion Jasso MD Lymphocytes/100 WBC (Bld) 26 % Normal 24-43 [facility] Comment on above: Performed By: #### R ANGELINE, CDP #### [address] [place], [facility]83 Social Worker Assistant: Ion Jasso MD MCH (RBC) [Entitic mass] 33.9 pg High 25.2-33.5 [facility] Comment on above: Performed By: #### R NAYELYEC, CDP #### [address] [place] [address] Social Worker Assistant: Ion Jasso MD MCHC (RBC) [Mass/Vol] 34.9 g/dL High 28.4-34.8 [facility] Comment on above: Performed By: #### R EJEC, CDP #### [facility] [address] [place] [address] Social Worker Assistant: Ion Jasso MD MCV (RBC) [Entitic vol] 97.1 fL Normal 82.6-102.9 [facility] Comment on above: Performed By: #### R EJEC, CDP #### [address] [place] [address] Social Worker Assistant: Ion Jasso MD Monocytes (Bld) [#/Vol] 0.76 10*3/uL Normal 0.10-1.20 [facility] Comment on above: Performed By: #### R ANGELINE, CDP #### [address] [place], [place] [id number] Social Worker Assistant: Ion Jasso MD Monocytes/100 WBC (Bld) 8 % Normal 3-12 [facility] Comment on above: Performed By: #### R ANGELINE, CDP #### [address] [place], [facility]83 Social Worker Assistant: Ion Jasso MD Neutrophil (Seg) 64 % Normal 36-65 [facility] Comment on above: Performed By: #### R ANGELINE, CDP #### [address] [place], [place] [id number] Social Worker Assistant: Ion Jasso MD NRBC Automated 0.0 per 100 WBC Normal 0.0 [facility] Comment on above: Performed By: #### R EJEC, CDP #### [address] [place], [facility]83 Social Worker Assistant: Ion Jasso MD Platelet mean volume (Bld) [Entitic vol] 10.6 fL Normal 8.1-13.5 [facility] Comment on above: Performed By: #### R ANGELINE, CDP #### [address] [place] [address] Social Worker Assistant: Ion Jasso MD Platelets (Bld) [#/Vol] 267 10*3/uL Normal 138-453 [facility] Comment on above: Performed By: #### R ANGELINE, CDP #### [facility] [address] [place], [place] [id number] Social Worker Assistant: Ion Jasso MD RBC (Bld) [#/Vol] 4.13 10*6/uL Normal 3.95-5.11 [facility] Comment on above: Performed By: #### Dustin MARCUS, CDP #### [facility] [address] [place], [place] 775[address]83 Social Worker Assistant: Ion Jasso MD WBC (Bld) [#/Vol] 9.3 10*3/uL Normal 3.5-11.3 [facility] Comment on above: Performed By: #### Dustin MARCUS, CDP #### [address] [place], [place] [phone] Social Worker Assistant: Ion Jasso MD CT ABDOMEN PELVIS W IV CONTR [place] 04-07-2024 CT ABDOMEN PELVIS W IV CONTRAST EXAMINATION: CT OF THE ABDOMEN AND PELVIS WITH CONTRAST 04/07/2024 12:45 pm TECHNIQUE: CT of the abdomen and pelvis was performed with the administration of intravenous contrast. Multiplanar reformatted images are provided for review. Automated exposure control, iterative reconstruction, and/or weight based adjustment of the mA/kV was utilized to reduce the radiation dose to as low as reasonably achievable. COMPARISON: 03/26/2020 HISTORY: ORDERING SYSTEM PROVIDED HISTORY: epigastric pain TECHNOLOGIST PROVIDED HISTORY: epigastric pain Decision Support Exception - unselect if not a suspected or confirmed emergency medical condition->Emergency Medical Condition (MA) FINDINGS: Lower Chest: The lung bases are clear. There are no pleural or pericardial effusions evident. Organs: Status post cholecystectomy. The liver, spleen, adrenal glands and kidneys are normal in appearance. There is stable mild dilatation of the extrahepatic biliary tree and pancreatic duct. The pancreas is otherwise unremarkable. There is no significant intrahepatic biliary ductal dilatation. GI/Bowel: There are no abnormally dilated loops of large or small bowel present. There is no mesenteric inflammatory stranding present. No evidence of acute appendicitis. Pelvis: The urinary bladder is normal. There is no free fluid or pelvic mass. Peritoneum/Retroperitoneu m: There is no pathologically enlarged lymphadenopathy present. Bones/Soft Tissues: No lytic or blastic osseous lesions are identified. IMPRESSION: 1. No acute intra-abdominal or pelvic abnormalities are noted. 2. Stable mild dilatation of the extrahepatic biliary tree and pancreatic duct. 3. Status post cholecystectomy. Interpreted by: Errol Tran MD Signed by: Errol Tran MD 04/07/24 Final result Normal [facility] CT Abdomen and Pelvis W cont rast Roxana 04-07-2024 1. No acute intra-abdominal or pelvic abnormalities are noted. 2. Stable mild dilatation of the extrahepatic biliary tree and pancreatic duct. 3. Status post cholecystectomy. [facility] RIS CONSOLIDATED EXAMINATION: CT OF THE ABDOMEN AND PELVIS WITH CONTRAST 04/07/2024 12:45 pm TECHNIQUE: CT of the abdomen and pelvis was performed with the administration of intravenous contrast. Multiplanar reformatted images are provided for review. Automated exposure control, iterative reconstruction, and/or weight based adjustment of the mA/kV was utilized to reduce the radiation dose to as low as reasonably achievable. COMPARISON: 03/26/2020 HISTORY: ORDERING SYSTEM PROVIDED HISTORY: epigastric pain TECHNOLOGIST PROVIDED HISTORY: epigastric pain Decision Support Exception - unselect if not a suspected or confirmed emergency medical condition->Emergency Medical Condition (MA) FINDINGS: Lower Chest: The lung bases are clear. There are no pleural or pericardial effusions evident. Organs: Status post cholecystectomy. The liver, spleen, adrenal glands and kidneys are normal in appearance. There is stable mild dilatation of the extrahepatic biliary tree and pancreatic duct. The pancreas is otherwise unremarkable. There is no significant intrahepatic biliary ductal dilatation. GI/Bowel: There are no abnormally dilated loops of large or small bowel present. There is no mesenteric inflammatory stranding present. No evidence of acute appendicitis. Pelvis: The urinary bladder is normal. There is no free fluid or pelvic mass. Peritoneum/Retroperitoneu m: There is no pathologically enlarged lymphadenopathy present. Bones/Soft Tissues: No lytic or blastic osseous lesions are identified. [facility] RIS CONSOLIDATED Errol Tran MD - 04/07/2024 EXAMINATION: CT OF THE ABDOMEN AND PELVIS WITH CONTRAST 04/07/2024 12:45 pm TECHNIQUE: CT of the abdomen and pelvis was performed with the administration of intravenous contrast. Multiplanar reformatted images are provided for review. Automated exposure control, iterative reconstruction, and/or weight based adjustment of the mA/kV was utilized to reduce the radiation dose to as low as reasonably achievable. COMPARISON: 03/26/2020 HISTORY: ORDERING SYSTEM PROVIDED HISTORY: epigastric pain TECHNOLOGIST PROVIDED HISTORY: epigastric pain Decision Support Exception - unselect if not a suspected or confirmed emergency medical condition->Emergency Medical Condition (MA) FINDINGS: Lower Chest: The lung bases are clear. There are no pleural or pericardial effusions evident. Organs: Status post cholecystectomy. The liver, spleen, adrenal glands and kidneys are normal in appearance. There is stable mild dilatation of the extrahepatic biliary tree and pancreatic duct. The pancreas is otherwise unremarkable. There is no significant intrahepatic biliary ductal dilatation. GI/Bowel: There are no abnormally dilated loops of large or small bowel present. There is no mesenteric inflammatory stranding present. No evidence of acute appendicitis. Pelvis: The urinary bladder is normal. There is no free fluid or pelvic mass. Peritoneum/Retroperitoneu m: There is no pathologically enlarged lymphadenopathy present. Bones/Soft Tissues: No lytic or blastic osseous lesions are identified. IMPRESSION: 1. No acute intra-abdominal or pelvic abnormalities are noted. 2. Stable mild dilatation of the extrahepatic biliary tree and pancreatic duct. 3. Status post cholecystectomy. [facility] Radiology Study observation (narrative) [facility] CT Abdomen and Pelvis W cont rast IVOrdered By: Errol Tran on 04-07-2024 [facility] Work Phone: Hepatic Function Panelon Albumin [Mass/Vol] 3.9 g/dL 3.5 - 5.2 g/dL [facility] Albumin/Globulin [Mass ratio] 1.7 {ratio} 1.0 - 2.5 [facility] ALP [Catalytic activity/Vol] 119 U/L High 35 - 104 U/L [facility] ALT [Catalytic activity/Vol] 11 U/L 10 - 35 U/L [facility] AST [Catalytic activity/Vol] 30 U/L 10 - 35 U/L [facility] Sunglass Bilirubin [Mass/Vol] mg/dL 0.00 - 1.20 mg/dL [facility] Bilirubin.direct [Mass/Vol] mg/dL 0.00 - 0.30 mg/dL [facility] Bilirubin.indirect [Mass/Vol] Can not be calculated 0.0 - 1.0 mg/dL [facility] Protein [Mass/Vol] 6.1 g/dL Low 6.6 - 8.7 g/dL [facility] Lipaseon 04-07-2024 Lipase [Catalytic activity/Vol] 266 U/L High 13 - 60 U/L [facility] Lipase [Catalytic activity/Vol] 266 U/L High 13-60 [facility] Comment on above: Performed By: #### C DP, LIP, CP #### [address] [place] [address] Social Worker Assistant: Ion Jasso MD Liver Profileon 04-07-2024 Albumin [Mass/Vol] 3.9 g/dL Normal 3.5-5.2 [facility] Comment on above: Performed By: #### C DP, LIP, CP #### [address] [place] [address] Social Worker Assistant: Ion Jasso MD Albumin/Glob Ratio 1.7 Normal 1.0-2.5 [facility] Comment on above: Performed By: #### C DP, LIP, CP #### [facility] [address] [place] [address] [place] [address] Social Worker Assistant: Ion Jasso MD Alkaline Phos 119 U/L High 35-104 [facility] Comment on above: Performed By: #### C DP, LIP, CP #### [facility] [address] [place] [address] Social Worker Assistant: Ion Jasso MD ALT [Catalytic activity/Vol] 11 U/L Normal 10-35 [facility] Comment on above: Performed By: #### C DP, LIP, CP #### [facility] [address] [place] [address] Social Worker Assistant: Ion Jasso MD AST [Catalytic activity/Vol] 30 U/L Normal 10-35 [facility] Comment on above: Performed By: #### C DP LIP, CP #### [facility] [address] [place] [address] Social Worker Assistant: Ion Jasso MD Bilirubin [Mass/Vol] mg/dL Normal 0.00-1.20 [facility] Comment on above: Performed By: #### C DP LIP, CP #### [address] [place] [address] Social Worker Assistant: Ion Jasso MD Bilirubin, Indirect Can not be calculated Normal 0.0-1 .0 [facility] Comment on above: Performed By: #### C DP LIP, CP #### [address] [place] [address] Social Worker Assistant: Ion Jasso MD Bilirubin.indirect [Mass/Vol] mg/dL Normal 0.00-0.30 [facility] Comment on above: Performed By: #### C ELMER LIP, CP #### [address] [place], [place] 1408983 Social Worker Assistant: Ion Jasso MD Protein [Mass/Vol] 6.1 g/dL Low 6.6-8.7 [facility] Comment on above: Performed By: #### C DP LIP, CP #### [address] [place], [place] 885[address]83 Social Worker Assistant: Ion Jasso MD No Panel Informationon 04-07 Interpretation and review of laboratory results Abnormal [facility] Specimen Rejectionon 025 Reason for rejection Unable to perform testing: Specimen hemolyzed. Normal [facility] Comment on above: Performed By: #### R EJEC, CDP #### [facility] [address] [place] [address] [place] [address] Social Worker Assistant: Ion Jasso MD Source of sample .BLOOD Normal [facility] Comment on above: Performed By: #### R EJEC, CDP #### [facility] [address] [place] [address] Social Worker Assistant: Ion Jasso MD Test ordered LIP,LIVP, BMP Normal [facility] Comment on above: Performed By: #### R EJEC, CDP #### [facility] [address] [place] [address] Social Worker Assistant: Ion Jasso MD Urinalysison 04-07-2024 Bilirubin Ql (U) Negative NEGATIVE [facility] Clarity (U) Clear Clear [facility] Color (U) Yellow Yellow [facility] Glucose Test strip (U) [Mass/Vol] Negative NEGATIVE mg/dL [facility] Hemoglobin Auto test strip Ql (U) Negative NEGATIVE [facility] Ketones (U) [Mass/Vol] Negative NEGAT MATTHIAS mg/dL [facility] Leukocyte esterase Test strip Ql (U) Negative NEGATIVE [facility] Nitrite Ql (U) Negative NEGATIVE [facility] pH (U) 5.5 [pH] 5.0 - 9.0 [facility] Protein (U) [Mass/Vol] Negative NEGAT MATTHIAS mg/dL [facility] Specific gravity (U) [Rel density] 1.010 1.010 - 1.020 [facility] Urobilinogen Qn (U) Normal 0.0 - 1. 0 EU/dL [facility] Urinalysis, Routineon 2024 Bilirubin, SemiQt,Ur Negative Normal NEG [facility] Comment on above: Performed By: #### U A #### [facility] [address] [place] [address] Social Worker Assistant: Ion Jasso MD Blood, Urine Negative Normal NEG [facility] Comment on above: Performed By: #### U A #### [facility] [address] [place] [address] [address] [place], [place] 3765883 Social Worker Assistant: Ion Jasso MD Clarity (U) Clear Normal CLEAR [facility] Comment on above: Performed By: #### U A #### [facility] [address] [place] [address] [place] [place], [place] 9342783 Social Worker Assistant: Ion Jasso MD Color (U) Yellow Normal YEL [facility] Comment on above: Performed By: #### U A #### [facility] [address] [place] [address] Dr. [place], [place] 5370983 Social Worker Assistant: Ion Jasso MD Glucose Ql (U) Negative Normal NEG [facility] Comment on above: Performed By: #### U A #### [facility] [address] [place] [address] Dr. [place], [place] 3305083 Social Worker Assistant: Ion Jasso MD Ketones Ql (U) Negative Normal NEG [facility] Comment on above: Performed By: #### U A #### [facility] [address] [place] [address] Dr. [place], [place] 7980483 Social Worker Assistant: Ion Jasso MD Leukocyte esterase Test strip Ql (U) Negative Normal NEG [facility] Comment on above: Performed By: #### U A #### [facility] [address] [place] [address] [address] [place], [place] 5139583 Social Worker Assistant: Ion Jasso MD Nitrite,Ur Negative Normal NEG [facility] Comment on above: Performed By: #### U A #### [facility] [address] [place] [address] [place]. [place], [place] 9985783 Social Worker Assistant: Ion Jasso MD PH,Ur 5.5 Normal 5.0-9.0 [facility] Comment on above: Performed By: #### U A #### [facility] [address] [place] [address] [place] [place], [place] 1400783 Social Worker Assistant: Ion Jasso MD Protein Ql (U) Negative Normal NEG [facility] Comment on above: Performed By: #### U A #### [facility] [address] [place] [address] Social Worker Assistant: Ion Jasso MD Spec. Nitro,Ur 1.010 Normal 1.010-1.02 0 [facility] Comment on above: Performed By: #### U A #### [facility] [address] [place] [address] Social Worker Assistant: Ion Jasso MD Urobilinogen,Ur Normal Normal 0.0-1.0 [facility] Comment on above: Performed By: #### U A #### [facility] [address] [place] [address] [place] [address] Social Worker Assistant: Ion Jasso MD CBC AND AUTO DIFFon 03-18-19 25 ABSOLUTE BASOPHIL 0.1 X10E9/L Normal 0.0-0.2 [facility] Comment on above: Performed By: #### C BCA, 3040-3, CMP, 41176-1, 94568-5, 23119- 1 #### [facility] ([id number]) [address] [place] [address] ABSOLUTE NEUTROPHIL 7.7 X10E9/L High 1.5-6.6 [facility] Comment on above: Performed By: #### C BCA, 3040-3, CMP, 80706-0, 58476-1, 53886- 1 #### [facility] ([id number]) [address] [place] [address] 10120 Basophils/100 WBC (Bld) 0.8 % Normal [facility] Comment on above: Performed By: #### C BCA, 3040-3, CMP, 06713-1, 65025-8, 50128- 1 #### [facility] ([id number]) [address] [place] [address] Eosinophils (Bld) [#/Vol] 0.1 10*3/uL Normal 0.0-0.4 [facility] Comment on above: Performed By: #### C EZEQUIEL, 3040-3, CMP, 30642-2, 39910-9, 08729- 1 #### [facility] ([id number]) [address] [place] [address] Eosinophils/100 WBC (Bld) 0.5 % Normal [facility] Comment on above: Performed By: #### Clara NIEVES, 3040-3, CMP, 24077-8, 28348-7, 07428- 1 #### [facility] ([id number]) [address] [place] [address] 7[address]69 Erythrocyte distribution width (RBC) [Ratio] 13.5 % Normal 11.5-15.0 [facility] Comment on above: Performed By: #### Clara NIEVES, 3040-3, CMP, 57447-5, 26793-8, 21888- 1 #### [facility] ([id number]) [address] [place] [address] Hematocrit (Bld) [Volume fraction] 48.7 % High 35-47 [facility] Comment on above: Performed By: #### Clara NIEVES, 3040-3, CMP, 50763-2, 11093-2, 56409- 1 #### [facility] ([id number]) [address] [place] [address]307 Hemoglobin (Bld) [Mass/Vol] 16.5 g/dL High 11.7-15.5 [facility] Comment on above: Performed By: #### Clara NIEVES, 3040-3, CMP, 77757-3, 64296-9, 88079- 1 #### [facility] ([id number]) [address] [place] [address] 90008 Lymphocytes (Bld) [#/Vol] 2.0 10*3/uL Normal 1.0-3.5 [facility] Comment on above: Performed By: #### C BCA, 3040-3, CMP, 86214-5, 05160-7, 41562- 1 #### [facility] ([id number]) [address] [place] [address] Lymphocytes/100 WBC (Bld) 19.0 % Normal [facility] Comment on above: Performed By: #### Clara BCA, 3040-3, CMP, 61059-6, 65374-6, 39882- 1 #### [facility] ([id number]) [address] [place] [address] 27372 MCH (RBC) [Entitic mass] 33.5 pg Normal 27-34 [facility] Comment on above: Performed By: #### Clara NIEVES, 3040-3, CMP, 98688-7, 76126-9, 19749- 1 #### [facility] ([id number]) [address] [place] [address] 24065 MCHC (RBC) [Mass/Vol] 33.9 g/dL Normal 32-36 [facility] Comment on above: Performed By: #### Clara NIEVES, 3040-3, CMP, 51537-9, 67849-3, 39461- 1 #### [facility] ([id number]) [address] [place] [address] 12322 MCV (RBC) [Entitic vol] 99 fL Normal 80-100 [facility] Comment on above: Performed By: #### Clara BCA, 3040-3, CMP, 56822-6, 04315-1, 99367- 1 #### [facility] ([id number]) [address] [place] [address] 14499 Monocytes (Bld) [#/Vol] 0.8 10*3/uL Normal 0-0.9 [facility] Comment on above: Performed By: #### Clara BCA, 3040-3, CMP, 46338-3, 25095-7, 40321- 1 #### [facility] ([id number]) [address] [place] [address]25 Monocytes/100 WBC (Bld) 7.4 % Normal [facility] Comment on above: Performed By: #### C BCA, 3040-3, CMP, 19605-4, 41351-8, 54424- 1 #### [facility] ([id number]) [address] [place] [address] 52967 Neutrophils/100 WBC (Bld) 72.3 % Normal [facility] Comment on above: Performed By: #### C BCA, 3040-3, CMP, 34385-7, 86687-4, 64747- 1 #### [facility] ([id number]) [address] [place] [address] 17037 Platelet mean volume (Bld) [Entitic vol] 8.1 fL Normal 7-12 [facility] Comment on above: Performed By: #### C BCA, 3040-3, CMP, 37742-8, 44328-3, 48625- 1 #### [facility] ([id number]) [address] [place] [address] 82962 Platelets (Bld) [#/Vol] 304 10*3/uL Normal 150-450 [facility] Comment on above: Performed By: #### Clara BCA, 3040-3, CMP, 03138-5, 10355-6, 83250- 1 #### [facility] ([id number]) [address] [place] [address] 15245 RBC COUNT 4.92 X10E12/L Normal 3.80-5.20 [facility] Comment on above: Performed By: #### Clara BCA, 3040-3, CMP, 12471-0, 49853-4, 34057- 1 #### [facility] ([id number]) [address] [place] [address] WBC (Bld) [#/Vol] 10.7 10*3/uL Normal 4.0-11.0 [facility] Comment on above: Performed By: #### C BCA, 3040-3, CMP, 79523-3, 51300-3, 64458- 1 #### [facility] ([id number]) [address] [place] [address]4493 COMPREHENSIVE METABOLIC PANE Nimesh 03-18-2024 Albumin [Mass/Vol] 4.7 g/dL Normal 3.2-5.3 [facility] Comment on above: Performed By: #### C BCA, 3040-3, CMP, 84651-5, 85285-5, 76309- 1 #### [facility] ([id number]) [address] [place] [address] 32790 ALP [Catalytic activity/Vol] 153 U/L High 39-130 [facility] Comment on above: Performed By: #### C BCA, 3040-3, CMP, 94286-7, 03796-6, 93713- 1 #### [facility] ([id number]) [address] [place] [address] 02583 ALT [Catalytic activity/Vol] 18 U/L Normal 0-31 [facility] Comment on above: Performed By: #### C BCA, 3040-3, CMP, 49565-1, 76508-2, 63673- 1 #### [facility] ([id number]) [address] [place] [address] 86120 Anion gap [Moles/Vol] 9 mmol/L Normal 5-15 [facility] Comment on above: Performed By: #### C BCA, 3040-3, CMP, 96342-7, 10518-4, 86365- 1 #### [facility] ([id number]) [address] [place] [address] 32570 AST [Catalytic activity/Vol] 26 U/L Normal 0-41 [facility] Comment on above: Performed By: #### C BCA, 3040-3, CMP, 37252-5, 06454-8, 23756- 1 #### [facility] ([id number]) [address] [place] [address] 99320 Bilirubin [Mass/Vol] 0.8 mg/dL Normal 0.3-1.2 [facility] Comment on above: Performed By: #### C BCA, 3040-3, CMP, 59709-6, 63102-3, 81310- 1 #### [facility] ([id number]) [address] [place] [address] 58362 Calcium [Mass/Vol] 10.9 mg/dL High 8.5-10.5 [facility] Comment on above: Performed By: #### C BCA, 3040-3, CMP, 58158-5, 14003-1, 89364- 1 #### [facility] ([id number]) [address] [place] [address] 09281 Chloride [Moles/Vol] 104 mmol/L Normal 98-109 [facility] Comment on above: Performed By: #### C BCA, 3040-3, CMP, 71469-7, 22540-9, 65374- 1 #### [facility] ([id number]) [address] [place] [address] 01522 CO2 [Moles/Vol] 27 mmol/L Normal 22-32 [facility] Comment on above: Performed By: #### C BCA, 3040-3, CMP, 63785-7, 75122-8, 77118- 1 #### [facility] ([id number]) [address] [place] [address] 73781 Creatinine [Mass/Vol] 0.78 mg/dL Normal 0.40-1.00 [facility] Comment on above: Result Comment: METH OD TRACEABLE TO IDMS STANDARD Performed By: #### C BCA, 3040-3, CMP, 01889-7, 17051-7, 17284-5 #### [facility] ([id number]) [address] [place] [address] 50813 eGFR (CKD-EPI) NON-RACE DEPENDENT >90 Normal >59 [facility] Comment on above: Result Comment: Reported eGFR is based on the CKD-EPI 2020 equation that does not use a race coefficient. Performed By: #### C BCA, 3040-3, CMP, 31143-2, 64789-6, 91486-9 #### [facility] ([id number]) [address] [place] [address] 39676 Glucose [Mass/Vol] 103 mg/dL High 65-99 [facility] Comment on above: Performed By: #### C BCA, 3040-3, CMP, 90310-0, 23296-2, 21833- 1 #### [facility] ([id number]) [address] [place] [address] 73448 Potassium [Moles/Vol] 4.5 mmol/L Normal 3.5-5.0 [facility] Comment on above: Performed By: #### C BCA, 3040-3, CMP, 67701-3, 06686-5, 83436- 1 #### [facility] ([id number]) [address] [place] [address] 27151 Protein [Mass/Vol] 8.2 g/dL High 6.0-8.0 [facility] Comment on above: Performed By: #### C BCA, 3040-3, CMP, 33945-8, 26736-4, 52846- 1 #### [facility] ([id number]) [address] [place] [address] 11624 Sodium [Moles/Vol] 140 mmol/L Normal 134-146 [facility] Comment on above: Performed By: #### C BCA, 3040-3, CMP, 19855-0, 82249-2, 03650- 1 #### [facility] ([id number]) [address] [place] [address] Urea nitrogen [Mass/Vol] 11 mg/dL Normal 5-23 [facility] Comment on above: Performed By: #### C BCA, 3040-3, CMP, 68367-0, 10550-3, 27452- 1 #### [facility] ([id number]) [address] [place] [address] ABDOMEN AND PELVIS W CONT on 03-18-2024 CT ABDOMEN AND PELVIS W CONT CT ABDOMEN AND PELVIS W CONT CT ABDOMEN AND PELVIS W CONT: 03/18/2024 3:21 PM CLINICAL INFORMATION: Abdominal pain, acute, nonlocalized TECHNIQUE: CT Abdomen and Pelvis with intravenous contrast. Coronal and sagittal reformatted images were also obtained. All CT scans at this facility use dose modulation, iterative reconstruction, and/or weight based dosing when appropriate to reduce radiation dose to as low as reasonably achievable. COMPARISON: 01/14/2024 FINDINGS: LIVER: Normal liver morphology. The gallbladder is removed. No biliary ductal dilatation. Portal and hepatic veins are patent SPLEEN: Spleen is not enlarged PANCREAS: No significant abnormality of the pancreas. The pancreatic duct is nondilated ADRENAL GLANDS: Stable 1.3 cm left adrenal nodule not significantly changed from several prior exams most consistent with a benign adenoma. KIDNEYS: Symmetric enhancement of the kidneys without hydronephrosis. No renal or ureteral calculi. The bladder is unremarkable. BOWEL/MESENTERY: No small or large bowel obstruction. The appendix is nondilated. No free intraperitoneal fluid or air. LYMPH NODES: No lymphadenopathy UTERUS/ADNEXA: The uterus is removed, no adnexal mass. VASCULATURE: Normal caliber of the abdominal aorta. BONES/OTHER: No suspicious osseous abnormality. The visualized lower chest is unremarkable. IMPRESSION: * No acute abnormality within the abdomen or pelvis Finalized by Amy Cano MD on 03/18/2024 3:38 PM Normal [facility] LIPASEon 03-18-2024 Lipase [Catalytic activity/Vol] 73 U/L High 17-40 [facility] Comment on above: Performed By: #### C BCA, 3040-3, [facility], 50254-0, 55559-3, 05365- 1 #### [facility] ([id number]) [address] [place] [address], [place] [address] UPPER EUSon 01-19-2024 [facility] Gastroenterology Patient Name: Chioma Rainey Procedure Date: 01/19/2024 9:15 AM Date of : 1970 Admit Type: Outpatient Age: 53 Room: EUS Proc Room 01 Gender: Female Note Status: Finalized Attending MD: Sabrina Dee MD, MPH, [id number] Procedure: Upper EUS Indications: Celiac plexus block [...] o (more content not included)... LAB, [facility] Radiology Study observation (narrative) [facility] CBC AND AUTO DIFFon 01-14-20 24 ABSOLUTE BASOPHIL 0.1 X10E9/L Normal 0.0-0.2 [facility] Comment on above: Performed By: #### C BCA, 3040-3, [facility], 01531-9, 09701-7, 48411- 1 #### [facility] ([id number]) [address] [place] [address], [place] [address] ABSOLUTE NEUTROPHIL 6.8 X10E9/L High 1.5-6.6 [facility] Comment on above: Performed By: #### C BCA, 3040-3, CMP, 49436-0, 74348-3, 92659- 1 #### [facility] ([id number]) [address] [place] [address] 82430 Basophils/100 WBC (Bld) 0.8 % Normal [facility] Comment on above: Performed By: #### C BCA, 3040-3, CMP, 99027-8, 01264-4, 60926- 1 #### [facility] ([id number]) [address] [place] [address] 97447 Eosinophils (Bld) [#/Vol] 0.1 10*3/uL Normal 0.0-0.4 [facility] Comment on above: Performed By: #### C BCA, 3040-3, CMP, 19583-3, 16412-7, 54170- 1 #### [facility] ([id number]) [address] [place] [address] 25039 Eosinophils/100 WBC (Bld) 1.2 % Normal [facility] Comment on above: Performed By: #### C BCA, 3040-3, CMP, 74449-4, 83535-5, 74568- 1 #### [facility] ([id number]) [address] [place] [address] 22804 Erythrocyte distribution width (RBC) [Ratio] 12.9 % Normal 11.5-15.0 [facility] Comment on above: Performed By: #### C BCA, 3040-3, CMP, 67298-6, 38378-2, 85005- 1 #### [facility] ([id number]) [address] [place] [address] 12137 Hematocrit (Bld) [Volume fraction] 42.2 % Normal 35-47 [facility] Comment on above: Performed By: #### C BCA, 3040-3, CMP, 10533-4, 84109-1, 36493- 1 #### [facility] ([id number]) [address] [place] [address] 86537 Hemoglobin (Bld) [Mass/Vol] 14.5 g/dL Normal 11.7-15.5 [facility] Comment on above: Performed By: #### C BCA, 3040-3, CMP, 21416-9, 35867-1, 89219- 1 #### [facility] ([id number]) [address] [place] [address] 84207 Lymphocytes (Bld) [#/Vol] 2.8 10*3/uL Normal 1.0-3.5 [facility] Comment on above: Performed By: #### C EZEQUIEL, 3040-3, CMP, 95081-4, 55784-8, 17959- 1 #### [facility] ([id number]) [address] [place] [address] 28791 Lymphocytes/100 WBC (Bld) 26.2 % Normal [facility] Comment on above: Performed By: #### Clara NIEVES, 3040-3, CMP, 04737-5, 49721-5, 09162- 1 #### [facility] ([id number]) [address] [place] [address] 25551 MCH (RBC) [Entitic mass] 33.8 pg Normal 27-34 [facility] Comment on above: Performed By: #### Clara NIEVES, 3040-3, CMP, 23563-1, 59229-5, 69447- 1 #### [facility] ([id number]) [address] [place] [address] 04604 MCHC (RBC) [Mass/Vol] 34.3 g/dL Normal 32-36 [facility] Comment on above: Performed By: #### Clara BCA, 3040-3, CMP, 40590-2, 12223-2, 71990- 1 #### [facility] ([id number]) [address] [place] [address] 48148 MCV (RBC) [Entitic vol] 98 fL Normal 80-100 [facility] Comment on above: Performed By: #### Clara BCA, 3040-3, CMP, 14054-3, 58150-7, 86716- 1 #### [facility] ([id number]) [address] [place] [address] 83915 Monocytes (Bld) [#/Vol] 0.9 10*3/uL Normal 0-0.9 [facility] Comment on above: Performed By: #### Clara BCA, 3040-3, CMP, 86421-5, 57014-8, 69982- 1 #### [facility] ([id number]) [address] [place] [address] 75396 Monocytes/100 WBC (Bld) 8.2 % Normal [facility] Comment on above: Performed By: #### Clara BCA, 3040-3, CMP, 47573-6, 31656-6, 05667- 1 #### [facility] ([id number]) [address] [place] [address] 56153 Neutrophils/100 WBC (Bld) 63.6 % Normal [facility] Comment on above: Performed By: #### Clara BCA, 3040-3, CMP, 47181-4, 23602-8, 27669- 1 #### [facility] ([id number]) [address] [place] [address] 84928 Platelet mean volume (Bld) [Entitic vol] 8.2 fL Normal 7-12 [facility] Comment on above: Performed By: #### Clara BCA, 3040-3, CMP, 32033-5, 65207-1, 07831- 1 #### [facility] ([id number]) [address] [place] [address] 33996 Platelets (Bld) [#/Vol] 259 10*3/uL Normal 150-450 [facility] Comment on above: Performed By: #### Clara BCA, 3040-3, CMP, 43289-7, 09565-7, 89423- 1 #### [facility] ([id number]) [address] [place] [address] 43166 RBC COUNT 4.29 X10E12/L Normal 3.80-5.20 [facility] Comment on above: Performed By: #### C BCA, 3040-3, CMP, 68095-2, 95172-7, 74393- 1 #### [facility] ([id number]) [address] [place] [address] 62201 WBC (Bld) [#/Vol] 10.7 10*3/uL Normal 4.0-11.0 [facility] Comment on above: Performed By: #### C BCA, 3040-3, CMP, 22226-3, 42218-4, 44582- 1 #### [facility] ([id number]) [address] [place] [address] 46586 COMPREHENSIVE METABOLIC PANE [facility] 01-14-2024 Albumin [Mass/Vol] 4.2 g/dL Normal 3.2-5.3 [facility] Comment on above: Performed By: #### C BCA, 3040-3, CMP, 07577-6, 08189-7, 82853- 1 #### [facility] ([id number]) [address] [place] [address] 30058 ALP [Catalytic activity/Vol] 136 U/L High 39-130 [facility] Comment on above: Performed By: #### C BCA, 3040-3, CMP, 93687-2, 11248-5, 53696- 1 #### [facility] ([id number]) [address] [place] [address] 30743 ALT [Catalytic activity/Vol] 18 U/L Normal 0-31 [facility] Comment on above: Performed By: #### C BCA, 3040-3, CMP, 43221-6, 69030-4, 95951- 1 #### [facility] ([id number]) [address] [place] [address] 92500 Anion gap [Moles/Vol] 10 mmol/L Normal 5-15 [facility] Comment on above: Performed By: #### C BCA, 3040-3, CMP, 53763-3, 83869-0, 62274- 1 #### [facility] ([id number]) [address] [place] [address] 20190 AST [Catalytic activity/Vol] 21 U/L Normal 0-41 [facility] Comment on above: Performed By: #### C BCA, 3040-3, CMP, 81695-3, 13782-3, 66362- 1 #### [facility] ([id number]) [address] [place] [address] 78758 Bilirubin [Mass/Vol] 0.5 mg/dL Normal 0.3-1.2 [facility] Comment on above: Performed By: #### C BCA, 3040-3, CMP, 80434-7, 19918-8, 65831- 1 #### [facility] ([id number]) [address] [place] [address] 10752 Calcium [Mass/Vol] 9.6 mg/dL Normal 8.5-10.5 [facility] Comment on above: Performed By: #### C BCA, 3040-3, CMP, 80888-7, 29132-9, 06638- 1 #### [facility] ([id number]) [address] [place] [address] 39680 Chloride [Moles/Vol] 105 mmol/L Normal 98-109 [facility] Comment on above: Performed By: #### C BCA, 3040-3, CMP, 17886-1, 85070-8, 93846- 1 #### [facility] ([id number]) [address] [place] [address] 81424 CO2 [Moles/Vol] 22 mmol/L Normal 22-32 [facility] Comment on above: Performed By: #### C BCA, 3040-3, CMP, 80503-4, 50632-7, 01680- 1 #### [facility] ([id number]) [address] [place] [address] 04265 Creatinine [Mass/Vol] 0.74 mg/dL Normal 0.40-1.00 [facility] Comment on above: Result Comment: METH OD TRACEABLE TO IDMS STANDARD Performed By: #### C BCA, 3040-3, CMP, 38654-6, 09264-1, 89913-5 #### [facility] ([id number]) [address] [place] [address] 84953 eGFR (CKD-EPI) NON-RACE DEPENDENT >90 Normal >59 [facility] Comment on above: Result Comment: Reported eGFR is based on the CKD-EPI 2020 equation that does not use a race coefficient. Performed By: #### C BCA, 3040-3, CMP, 43453-7, 89557-3, 24222-5 #### [facility] ([id number]) [address] [place] [address] 78011 Glucose [Mass/Vol] 93 mg/dL Normal 65-99 [facility] Comment on above: Performed By: #### C BCA, 3040-3, CMP, 27907-4, 52973-4, 71244- 1 #### [facility] ([id number]) [address] [place] [address] 55354 Potassium [Moles/Vol] 3.6 mmol/L Normal 3.5-5.0 [facility] Comment on above: Performed By: #### C BCA, 3040-3, CMP, 15913-4, 09359-9, 01167- 1 #### [facility] ([id number]) [address] [place] [address] 24466 Protein [Mass/Vol] 7.3 g/dL Normal 6.0-8.0 [facility] Comment on above: Performed By: #### C BCA, 3040-3, CMP, 61459-4, 07771-6, 63534- 1 #### [facility] ([id number]) [address] [place] [address] Sodium [Moles/Vol] 137 mmol/L Normal 134-146 [facility] Comment on above: Performed By: #### C BCA, 3040-3, CMP, 44219-8, 03994-6, 13415- 1 #### [facility] ([id number]) [address] [place] [address] 15710 Urea nitrogen [Mass/Vol] 7 mg/dL Normal 5-23 [facility] Comment on above: Performed By: #### C BCA, 3040-3, CMP, 39337-8, 69042-2, 47989- 1 #### [facility] ([id number]) [address] [place] [address] ABDOMEN AND PELVIS W CONT on [...] Rodgers MD on 01/14/2024 5:01 PM Normal [facility] LIPASEon 01-14-2024 Lipase [Catalytic activity/Vol] 72 U/L High 17-40 [facility] Comment on above: Performed By: #### C BCA, 3040-3, CMP, 26310-2, 47306-8, 53957- 1 #### [facility] ([id number]) [address] [place] [address] 83306 MAGNESIUMon 01-14-2024 Magnesium [Mass/Vol] 2.2 mg/dL Normal 1.8-2.6 [facility] Comment on above: Performed By: #### C BCA, 3040-3, CMP, 66789-8, 38488-5, 78735- 1 #### [facility] ([id number]) [address] [place] [address] [place] [address] URN MACROSCOPIC NURon 2023 BILIRUBIN JERE Negative Normal NEG [facility] Comment on above: Performed By: #### C BCA, 3040-3, CMP, 87762-0, 30932-3, 67006- 1 #### [facility] ([id number]) [address] [place] [address] 89700 BLOOD/HGB JERE Negative Normal NEG [facility] Comment on above: Performed By: #### C BCA, 3040-3, CMP, 46943-5, 48937-2, 26746- 1 #### [facility] ([id number]) [address] [place] [address] 86073 GLUCOSE JERE Negative Normal NEG [facility] Comment on above: Performed By: #### C BCA, 3040-3, CMP, 47585-9, 81246-4, 14685- 1 #### [facility] ([id number]) [address] [place] [address] 37729 KETONES JERE Negative Normal NEG [facility] Comment on above: Performed By: #### C BCA, 3040-3, CMP, 22656-5, 45708-9, 43778- 1 #### [facility] ([id number]) [address] [place] [address] 84113 LEUKOCYTE ESTERASE JERE Negative Normal NEG [facility] Comment on above: Performed By: #### C BCA, 3040-3, CMP, 41454-3, 68535-4, 79365- 1 #### [facility] ([id number]) [address] [place] [address] 32226 NITRITE JERE Negative Normal NEG [facility] Comment on above: Performed By: #### C BCA, 3040-3, CMP, 63953-2, 37772-1, 25223- 1 #### [facility] ([id number]) [address] [place] [address] 24683 PH JERE 5.5 Normal 5.0-8.5 [facility] Comment on above: Performed By: #### C BCA, 3040-3, CMP, 85586-1, 90632-8, 26041- 1 #### [facility] ([id number]) [address] [place] [address] 01809 PROTEIN JERE Negative Normal NEG [facility] Comment on above: Performed By: #### C BCA, 3040-3, CMP, 03806-5, 88750-0, 48323- 1 #### [facility] ([id number]) [address] [place] [address] 16019 SPECIFIC GRAVITY JERE >=1.030 Normal 1.003-1 .03 5 [facility] Comment on above: Performed By: #### C BCA, 3040-3, CMP, 74921-0, 51929-3, 99676- 1 #### [facility] ([id number]) [address] [place] [address], [place] [address] UROBILINOGEN JERE 0.2 eu/dL Normal <1.1 [facility] Comment on above: Performed By: #### C BCA, 3040-3, CMP, 31627-2, 23652-2, 14384- 1 #### [facility] ([id number]) [address] [place] [address] 70263 CBC with Auto Differentialon 01-07-2024 Basophils (Bld) [#/Vol] 0.09 10*3/uL [facility] Basophils/100 WBC (Bld) 1 % 0 - 2 % [facility] Eosinophils (Bld) [#/Vol] 0.10 10*3/uL [facility] Eosinophils/100 WBC (Bld) 1 % 1 - 4 % [facility] Erythrocyte distribution width (RBC) [Ratio] 12.2 % 11.8 - 14.4 % [facility] Hematocrit (Bld) [Volume fraction] 46.3 % 36.3 - 47.1 % [facility] Hemoglobin (Bld) [Mass/Vol] 15.9 g/dL High 11.9 - 15.1 g/dL [facility] Immature granulocytes (Bld) [#/Vol] [facility] Immature granulocytes/100 WBC (Bld) 0 % 0 [facility] Interpretation and review of laboratory results Abnormal [facility] Lymphocytes/100 WBC (Bld) 28 % 24 - 43 % [facility] Lymphocytes/100 WBC (Bld) 2.73 % [facility] MCH (RBC) [Entitic mass] 33.8 pg High 25.2 - 33.5 pg [facility] MCHC (RBC) [Mass/Vol] 34.3 g/dL 28.4 - 34.8 g/dL [facility] MCV (RBC) [Entitic vol] 98.3 fL 82.6 - 102.9 fL [facility] Monocytes/100 WBC (Bld) 9 % 3 - 12 % [facility] Monocytes/100 WBC (Bld) 0.88 % [facility] Neutrophils/100 WBC (Bld) 61 % 36 - 65 % [facility] Nucleated RBC/100 WBC (Bld) [Ratio] 0.0 % 0.0 per 100 WBC [facility] Platelet mean volume (Bld) [Entitic vol] 9.7 fL 8.1 - 13.5 fL [facility] Platelets (Bld) [#/Vol] 277 10*3/uL [facility] RBC (Bld) [#/Vol] 4.71 10*6/uL 3.95 - 5.11 m/uL [facility] Segmented neutrophils/100 WBC (Bld) 6.06 % [facility] WBC other (Bld) [#/Vol] 9.9 [facility] CBC with Diffon 01-07-2024 Abs. Basophil 0.09 k/uL Normal 0.00-0.20 [facility] Comment on above: Performed By: #### C P, CDP, LIP #### [facility] [address] [place] [address] Dr. [place] [id number] Social Worker Assistant: Ion Jasso MD Abs.Imm.Granulocyte <0.03 Normal 0.00-0.30 [facility] Comment on above: Performed By: #### C P, CDP, LIP #### [address] [place] [id number] Social Worker Assistant: Ion Jasso MD Abs.Neutrophil (Seg) 6.06 k/uL Normal 1.50-8.10 [facility] Comment on above: Performed By: #### C P, CDP, LIP #### [address] [place] [address] Social Worker Assistant: Ion Jasso MD Basophils/100 WBC (Bld) 1 % Normal 0-2 [facility] Comment on above: Performed By: #### C P, CDP, LIP #### [facility] [address] [place] [address] [place] [address] Social Worker Assistant: Ion Jasso MD Eosinophils (Bld) [#/Vol] 0.10 10*3/uL Normal 0.00-0.44 [facility] Comment on above: Performed By: #### C P, CDP, LIP #### [address] [place], [place] [id number] Social Worker Assistant: Ion Jasso MD Eosinophils/100 WBC (Bld) 1 % Normal 1-4 [facility] Comment on above: Performed By: #### C P, CDP, LIP #### [facility] [address] [place] [address] [place] [address] Social Worker Assistant: Ion Jasso MD Erythrocyte distribution width (RBC) [Ratio] 12.2 % Normal 11.8-14.4 [facility] Comment on above: Performed By: #### C P, CDP, LIP #### [address] [place], [facility] Social Worker Assistant: Ion Jasso MD Hematocrit (Bld) [Volume fraction] 46.3 % Normal 36.3-47.1 [facility] Comment on above: Performed By: #### C P, CDP, LIP #### [address] [place], [place] [id number] Social Worker Assistant: Ion Jasso MD Hemoglobin (Bld) [Mass/Vol] 15.9 g/dL High 11.9-15.1 [facility] Comment on above: Performed By: #### C P, CDP, LIP #### [address] Michel, [place] [id number] Social Worker Assistant: Ion Jasso MD Immature granulocytes/100 WBC (Bld) 0 % Normal 0 [facility] Comment on above: Performed By: #### C P, CDP, LIP #### [address] [place], [place] [id number] Social Worker Assistant: Ion Jasso MD Lymphocytes (Bld) [#/Vol] 2.73 10*3/uL Normal 1.10-3.70 [facility] Comment on above: Performed By: #### C P, CDP, LIP #### [address] [place] [address] Social Worker Assistant: Ion Jasso MD Lymphocytes/100 WBC (Bld) 28 % Normal 24-43 [facility] Comment on above: Performed By: #### C P, CDP, LIP #### [address] [place], [place] [id number] Social Worker Assistant: Ion Jasso MD MCH (RBC) [Entitic mass] 33.8 pg High 25.2-33.5 [facility] Comment on above: Performed By: #### C P, CDP, LIP #### [address] [place] [address] Social Worker Assistant: Ion Jasso MD MCHC (RBC) [Mass/Vol] 34.3 g/dL Normal 28.4-34.8 [facility] Comment on above: Performed By: #### C P, CDP, LIP #### [address] [place] [address] Social Worker Assistant: Ion Jasso MD MCV (RBC) [Entitic vol] 98.3 fL Normal 82.6-102.9 [facility] Comment on above: Performed By: #### C P, CDP, LIP #### [address] [place], [place] [id number] Social Worker Assistant: Ion Jasso MD Monocytes (Bld) [#/Vol] 0.88 10*3/uL Normal 0.10-1.20 [facility] Comment on above: Performed By: #### C P, CDP, LIP #### [address] [place], [place] [id number] Social Worker Assistant: Ion Jasso MD Monocytes/100 WBC (Bld) 9 % Normal 3-12 [facility] Comment on above: Performed By: #### C P, CDP, LIP #### [facility] [address] [place] [address] Social Worker Assistant: Ion Jasso MD Neutrophil (Seg) 61 % Normal 36-65 [facility] Comment on above: Performed By: #### C P, CDP, LIP #### [facility] [address] [place], [facility]83 Social Worker Assistant: Ion Jasso MD NRBC Automated 0.0 per 100 WBC Normal 0.0 [facility] Comment on above: Performed By: #### C P, CDP, LIP #### [facility] [address] [place], [facility]83 Social Worker Assistant: Ion Jasso MD Platelet mean volume (Bld) [Entitic vol] 9.7 fL Normal 8.1-13.5 [facility] Comment on above: Performed By: #### C P, CDP, LIP #### [address] [place], [place] [id number] Social Worker Assistant: Ion Jasso MD Platelets (Bld) [#/Vol] 277 10*3/uL Normal 138-453 [facility] Comment on above: Performed By: #### C P, CDP, LIP #### [address] [place], [place] [address] Social Worker Assistant: Ion Jasso MD RBC (Bld) [#/Vol] 4.71 10*6/uL Normal 3.95-5.11 [facility] Comment on above: Performed By: #### C P, CDP, LIP #### [facility] [address] [place], [place] 8082183 Social Worker Assistant: Ion Jasso MD WBC (Bld) [#/Vol] 9.9 10*3/uL Normal 3.5-11.3 [facility] Comment on above: Performed By: #### C P, CDP, LIP #### [facility] [address] [place], [place] 1653083 Social Worker Assistant: Ion Jasso MD Comp Metabolic Profon 2023 Albumin [Mass/Vol] 4.3 g/dL Normal 3.5-5.2 [facility] Comment on above: Performed By: #### C P, CDP, LIP #### [facility] [address] [place], [place] 2901383 Social Worker Assistant: Ion Jasso MD Albumin/Glob Ratio 1.6 Normal 1.0-2.5 [facility] Comment on above: Performed By: #### C P, CDP, LIP #### [address] [place], [place] 1075583 Social Worker Assistant: Ion Jasso MD Alkaline Phos 145 U/L High 35-104 [facility] Comment on above: Performed By: #### C P, CDP, LIP #### [facility] [address] [place], [place] 3651383 Social Worker Assistant: Ion Jasso MD ALT [Catalytic activity/Vol] 11 U/L Normal 10-35 [facility] Comment on above: Performed By: #### C P, CDP, LIP #### [facility] [address] [place], [place] 1820883 Social Worker Assistant: Ion Jasso MD Anion gap [Moles/Vol] 12 mmol/L Normal 9-16 [facility] Comment on above: Performed By: #### C P, CDP, LIP #### [facility] [address] [place] [address] Social Worker Assistant: Ion Jasso MD AST [Catalytic activity/Vol] 25 U/L Normal 10-35 [facility] Comment on above: Result Comment: Spec imen hemolysis has exceeded the interference as defined by Joycelyn. Value may be falsely increased. Suggest recollection if clinically indicated. Performed By: #### C P, CDP, LIP #### [facility] [address] [place], [place] 5290083 Social Worker Assistant: Ion Jasso MD Bilirubin [Mass/Vol] mg/dL Normal 0.00-1.20 [facility] Comment on above: Performed By: #### C P, CDP, LIP #### [facility] [address] [place], [place] 9271783 Social Worker Assistant: Ion Jasso MD BUN/CRE Ratio 9 Normal 9-20 [facility] Comment on above: Performed By: #### C P, CDP, LIP #### [address] [place], [place] 0359483 Social Worker Assistant: Ion Jasso MD Calcium [Mass/Vol] 9.8 mg/dL Normal 8.6-10.4 [facility] Comment on above: Performed By: #### C P, CDP, LIP #### [facility] [address] [place] [address] Dr[address] [place], [place] 5894583 Social Worker Assistant: Ion Jasso MD Chloride [Moles/Vol] 103 mmol/L Normal 98-107 [facility] Comment on above: Performed By: #### C P, CDP, LIP #### [address] [place], [place] 6665983 Social Worker Assistant: Ion Jasso MD CO2 [Moles/Vol] 22 mmol/L Normal 20-31 [facility] Comment on above: Performed By: #### C P, CDP, LIP #### [facility] [address] [place], [place] 3876183 Social Worker Assistant: Ion Jasso MD Creatinine [Mass/Vol] 0.8 mg/dL Normal 0.50-0.90 [facility] Comment on above: Performed By: #### C P, CDP, LIP #### [facility] [address] [place], [place] 2178783 Social Worker Assistant: Ion Jasso MD GFR/1.73 sq M.predicted among non-blacks MDRD (S/P/Bld) [Vol rate/Area] mL/min/{1.73_m2} Normal >60 [facility] Comment on above: Result Comment: These results [...] By: #### C P, CDP, LIP #### [address] [place] [address] Social Worker Assistant: Ion Jasso MD Glucose [Mass/Vol] 96 mg/dL Normal 74-99 [facility] Comment on above: Performed By: #### C P, CDP, LIP #### [facility] [address] [place] [address] Social Worker Assistant: Ion Jasso MD Potassium [Moles/Vol] 4.6 mmol/L Normal 3.7-5.3 [facility] Comment on above: Result Comment: Spec imen hemolysis has exceeded the interference as defined by Joycelyn. Value may be falsely increased. Suggest recollection if clinically indicated. Performed By: #### C P, CDP, LIP #### [facility] [address] [place] [address] Social Worker Assistant: Ion Jasso MD Protein [Mass/Vol] 7.0 g/dL Normal 6.6-8.7 [facility] Comment on above: Performed By: #### C P, CDP, LIP #### [facility] [address] [place] [address] Social Worker Assistant: Ion Jasso MD Sodium [Moles/Vol] 137 mmol/L Normal 136-145 [facility] Comment on above: Performed By: #### C P, CDP, LIP #### [facility] [address] [place] [address] Social Worker Assistant: Ion Jasso MD Urea nitrogen [Mass/Vol] 7 mg/dL Normal 6-20 [facility] Comment on above: Performed By: #### C P, CDP, LIP #### [facility] [address] [place] [address] Social Worker Assistant: Ion Jasso MD Comprehensive Metabolic Pane [facility] 01-07-2024 Albumin [Mass/Vol] 4.3 g/dL 3.5 - 5.2 g/dL [facility] Albumin/Globulin [Mass ratio] 1.6 {ratio} 1.0 - 2.5 [facility] ALP [Catalytic activity/Vol] 145 U/L High 35 - 104 U/L [facility] ALT [Catalytic activity/Vol] 11 U/L 10 - 35 U/L [facility] Anion gap [Moles/Vol] 12 mmol/L 9 - 16 mmol/L [facility] AST [Catalytic activity/Vol] 25 U/L 10 - 35 U/L [facility] Comment on above: Specimen hemolysis h as exceeded the interference as defined by Joycelyn. Value may be falsely increased. Suggest recollection if clinically indicated. Bilirubin [Mass/Vol] mg/dL 0.00 - 1.20 mg/dL [facility] Calcium [Mass/Vol] 9.8 mg/dL 8.6 - 10. 4 mg/dL [facility] Chloride [Moles/Vol] 103 mmol/L 98 - 10 7 mmol/L [facility] CO2 [Moles/Vol] 22 mmol/L 20 - 31 mmol/L [facility] Creatinine [Mass/Vol] 0.8 mg/dL 0.50 - 0.90 mg/dL [facility] Est, Glom Filt Rate - PINF [facility] Comment on above: These results are not intended for use [...] following therapy that affects renal tubular secretion. Glucose [Mass/Vol] 96 mg/dL 74 - 99 mg/dL [facility] Potassium [Moles/Vol] 4.6 mmol/L 3.7 - 5.3 mmol/L [facility] Comment on above: Specimen hemolysis h as exceeded the interference as defined by Joycelyn. Value may be falsely increased. Suggest recollection if clinically indicated. Protein [Mass/Vol] 7.0 g/dL 6.6 - 8.7 g/dL [facility] Sodium [Moles/Vol] 137 mmol/L 136 - 145 mmol/L [facility] Urea nitrogen [Mass/Vol] 7 mg/dL 6 - 20 mg/dL [facility] Urea nitrogen/Creatinine [Mass ratio] 9 mg/mg 9 - 20 [facility] Lactic Acidon 01-07-2024 Lactate (BldV) [Moles/Vol] 1.3 mmol/L 0.5 - 2.2 mmol/L [facility] Lactate [Moles/Vol] 1.3 mmol/L Normal 0.5-2.2 [facility] Comment on above: Performed By: #### L ACTIC #### [facility] [address] [place] [address] Social Worker Assistant: Ion Jasso MD Lipaseon 01-07-2024 Lipase [Catalytic activity/Vol] 144 U/L High 13 - 60 U/L [facility] Lipase [Catalytic activity/Vol] 144 U/L High 13-60 [facility] Comment on above: Performed By: #### C DP, LIP, CP #### [facility] [address] [place] [address] Social Worker Assistant: Ion Jasso MD No Panel Informationon 01-06 Interpretation and review of laboratory results Abnormal [facility] Urinalysis w/ Microon 2023 Bilirubin, SemiQt,Ur Negative Normal NEG [facility] Comment on above: Performed By: #### U AMIC #### [facility] [address] [place], [place] 3687083 Social Worker Assistant: Ion Jasso MD Blood, Urine Negative Normal NEG [facility] Comment on above: Performed By: #### U AMIC #### [facility] [address] [place], [place] 9536683 Social Worker Assistant: Ion Jasso MD Clarity (U) Clear Normal CLEAR [facility] Comment on above: Performed By: #### U AMIC #### [facility] [address] [place], [place] 8874083 Social Worker Assistant: Ion Jasso MD Color (U) Yellow Normal YEL [facility] Comment on above: Performed By: #### U AMIC #### [facility] [address] [place], [place] 8187683 Social Worker Assistant: Ion Jasso MD Epithelial cells LM Ql (Urine sed) 0 TO 2 Normal 0-25 [facility] Comment on above: Performed By: #### U AMIC #### [facility] [address] [place] [address] Dr. [place], [place] 7318883 Social Worker Assistant: Ion Jasso MD Glucose Ql (U) Negative Normal NEG [facility] Comment on above: Performed By: #### U AMIC #### [facility] [address] [place], [place] 9756183 Social Worker Assistant: Ion Jasso MD Ketones Ql (U) Negative Normal NEG [facility] Comment on above: Performed By: #### U AMIC #### [facility] [address] [place] [address] Social Worker Assistant: Ion Jasso MD Leukocyte esterase Test strip Ql (U) Negative Normal NEG [facility] Comment on above: Performed By: #### U AMIC #### [facility] [address] [place], [place] 5343083 Social Worker Assistant: Ion Jasso MD Nitrite,Ur Negative Normal NEG [facility] Comment on above: Performed By: #### U AMIC #### [facility] [address] [place], [place] 0490883 Social Worker Assistant: Ion Jasso MD PH,Ur 6.0 Normal 5.0-9.0 [facility] Comment on above: Performed By: #### U AMIC #### [facility] [address] [place], [place] 7149583 Social Worker Assistant: Ion Jasso MD Protein Ql (U) Negative Normal NEG [facility] Comment on above: Performed By: #### U AMIC #### [facility] [address] [place], [facility] Social Worker Assistant: Ion Jasso MD Spec. Nitro,Ur 1.010 Normal 1.010-1.02 0 [facility] Comment on above: Performed By: #### U AMIC #### [facility] [address] [place] [address] [address]. [place], [place] 9584683 Social Worker Assistant: Ion Jasso MD Urine RBC's None Normal 0-2 [facility] Comment on above: Performed By: #### U AMIC #### [facility] [address] [place], [place] 9342383 Social Worker Assistant: Ion Jasso MD Urine WBC's 0 TO 2 Normal 0-5 [facility] Comment on above: Performed By: #### U AMIC #### [facility] [address] [place], [place] 2192183 Social Worker Assistant: Ion Jasso MD Urobilinogen,Ur Normal Normal 0.0-1.0 [facility] Comment on above: Performed By: #### U AMIC #### [facility] [address] [place] [address] Social Worker Assistant: Ion Jasso MD Urinalysis with Microscopico n 01-07-2024 Bilirubin Ql (U) Negative NEGATIVE [facility] Clarity (U) Clear Clear [facility] Color (U) Yellow Yellow [facility] Epithelial cells LM.HPF (Urine sed) [#/Area] 0 TO 2 [facility] Glucose Test strip (U) [Mass/Vol] Negative NEGATIVE mg/dL [facility] Hemoglobin Auto test strip Ql (U) Negative NEGATIVE [facility] Ketones (U) [Mass/Vol] Negative NEGAT MATTHIAS mg/dL [facility] Leukocyte esterase Test strip Ql (U) Negative NEGATIVE [facility] Nitrite Ql (U) Negative NEGATIVE [facility] pH (U) 6.0 [pH] 5.0 - 9.0 [facility] Protein (U) [Mass/Vol] Negative NEGAT MATTHIAS mg/dL [facility] RBC LM.HPF (Urine sed) [#/Area] None [facility] Specific gravity (U) [Rel density] 1.010 1.010 - 1.020 [facility] Urobilinogen Qn (U) Normal 0.0 - 1. 0 EU/dL [facility] WBC LM.HPF (Urine sed) [#/Area] 0 TO 2 [facility] BASIC METABOLIC PANLon 12-28 Anion gap [Moles/Vol] 8 mmol/L Normal 5-15 [facility] Comment on above: Performed By: #### C BCA, 3040-3, CMP, 51039-8, 39504-4, 12163- 1 #### [facility] ([id number]) [address] [place] [address], [place] [address] Calcium [Mass/Vol] 9.7 mg/dL Normal 8.5-10.5 [facility] Comment on above: Performed By: #### C BCA, 3040-3, CMP, 76098-6, 66486-9, 56469- 1 #### [facility] ([id number]) [address] [place] [address] Chloride [Moles/Vol] 106 mmol/L Normal 98-109 [facility] Comment on above: Performed By: #### C BCA, 3040-3, CMP, 62734-0, 84593-0, 50245- 1 #### [facility] ([id number]) [address] [place] [address] CO2 [Moles/Vol] 24 mmol/L Normal 22-32 [facility] Comment on above: Performed By: #### C BCA, 3040-3, CMP, 81653-7, 73323-5, 42682- 1 #### [facility] ([id number]) [address] [place] [address] Creatinine [Mass/Vol] 0.88 mg/dL Normal 0.40-1.00 [facility] Comment on above: Result Comment: METH OD TRACEABLE TO IDMS STANDARD Performed By: #### C BCA, 3040-3, CMP, 20505-8, 32032-5, 27889-4 #### [facility] ([id number]) [address] [place] [address] 15293 GFR/1.73 sq M.predicted among non-blacks MDRD (S/P/Bld) [Vol rate/Area] 78 mL/min/{1.73_m2} Normal >59 [facility] Comment on above: Result Comment: Reported eGFR is based on the CKD-EPI 1 equation that does not use a race coefficient. Performed By: #### C BCA, 3040-3, CMP, 05044-8, 15883-7, 42137-2 #### [facility] ([id number]) [address] [place] [address]12 Glucose [Mass/Vol] 82 mg/dL Normal 65-99 [facility] Comment on above: Performed By: #### C BCA, 3040-3, CMP, 46472-1, 60097-6, 71848- 1 #### [facility] ([id number]) [address] [place] [address] Potassium [Moles/Vol] 4.2 mmol/L Normal 3.5-5.0 [facility] Comment on above: Result Comment: SPEC IMEN HEMOLYZED, RESULTS INCREASED Performed By: #### C BCA, 3040-3, CMP, 99475-6, 51499-6, 85450-8 #### [facility] ([id number]) [address] [place] [address] Sodium [Moles/Vol] 138 mmol/L Normal 134-146 [facility] Comment on above: Performed By: #### C BCA, 3040-3, CMP, 54179-0, 34380-4, 41189- 1 #### [facility] ([id number]) [address] [place] [address] 31610 Urea nitrogen [Mass/Vol] 12 mg/dL Normal 5-23 [facility] Comment on above: Performed By: #### C BCA, 3040-3, CMP, 22673-4, 91725-0, 03766- 1 #### [facility] ([id number]) [address] [place] [address] CBC AND AUTO DIFFon 10-22-20 24 ABSOLUTE BASOPHIL 0.1 X10E9/L Normal 0.0-0.2 [facility] Comment on above: Performed By: #### C BCA, 3040-3, CMP, 19795-1, 56524-4, 89260- 1 #### [facility] ([id number]) [address] [place] [address]85 ABSOLUTE NEUTROPHIL 3.9 X10E9/L Normal 1.5-6.6 [facility] Comment on above: Performed By: #### C BCA, 3040-3, CMP, 31393-2, 39217-7, 67612- 1 #### [facility] ([id number]) [address] [place] [address] 18231 Basophils/100 WBC (Bld) 1.3 % Normal [facility] Comment on above: Performed By: #### C BCA, 3040-3, CMP, 05185-5, 15581-1, 67739- 1 #### [facility] ([id number]) [address] [place] [address] 13112 Eosinophils (Bld) [#/Vol] 0.2 10*3/uL Normal 0.0-0.4 [facility] Comment on above: Performed By: #### C BCA, 3040-3, CMP, 79191-7, 64018-3, 56368- 1 #### [facility] ([id number]) [address] [place] [address]85 Eosinophils/100 WBC (Bld) 2.3 % Normal [facility] Comment on above: Performed By: #### C BCA, 3040-3, CMP, 73576-5, 55323-6, 15257- 1 #### [facility] ([id number]) [address] [place] [address] 80106 Erythrocyte distribution width (RBC) [Ratio] 13.2 % Normal 11.5-15.0 [facility] Comment on above: Performed By: #### Clara BCA, 3040-3, CMP, 90714-9, 26472-6, 47880- 1 #### [facility] ([id number]) [address] [place] [address]1243 Hematocrit (Bld) [Volume fraction] 41.8 % Normal 35-47 [facility] Comment on above: Performed By: #### C BCA, 3040-3, CMP, 83235-3, 08381-1, 08255- 1 #### [facility] ([id number]) [address] [place] [address]09 Hemoglobin (Bld) [Mass/Vol] 14.3 g/dL Normal 11.7-15.5 [facility] Comment on above: Performed By: #### C EZEQUIEL, 3040-3, CMP, 28330-6, 51818-5, 14516- 1 #### [facility] ([id number]) [address] [place] [address] 31306 Lymphocytes (Bld) [#/Vol] 2.5 10*3/uL Normal 1.0-3.5 [facility] Comment on above: Performed By: #### Clara NIEVES, 3040-3, CMP, 11595-5, 96020-8, - 1 #### [facility] ([id number]) [address] [place] [address] 35993 Lymphocytes/100 WBC (Bld) 33.1 % Normal [facility] Comment on above: Performed By: #### Clara NIEVES, 3040-3, CMP, 72270-8, , 49997- 1 #### [facility] ([id number]) [address] [place] [address] 76259 MCH (RBC) [Entitic mass] 34.0 pg Normal 27-34 [facility] Comment on above: Performed By: #### Clara NIEVES, 3040-3, CMP, 23308-2, 59083-9, 68213- 1 #### [facility] ([id number]) [address] [place] [address] 92804 MCHC (RBC) [Mass/Vol] 34.1 g/dL Normal 32-36 [facility] Comment on above: Performed By: #### Clara NIEVES, 3040-3, CMP, 36588-7, 73255-9, 89013- 1 #### [facility] ([id number]) [address] [place] [address] 76240 MCV (RBC) [Entitic vol] 100 fL Normal 80-100 [facility] Comment on above: Performed By: #### C BCA, 3040-3, CMP, 50645-3, 90211-7, 46600- 1 #### [facility] ([id number]) [address] [place] [address] 67632 Monocytes (Bld) [#/Vol] 0.9 10*3/uL Normal 0-0.9 [facility] Comment on above: Performed By: #### Clara BCA, 3040-3, CMP, 32353-7, 35893-2, 35009- 1 #### [facility] ([id number]) [address] [place] [address] 84753 Monocytes/100 WBC (Bld) 12.0 % Normal [facility] Comment on above: Performed By: #### Clara BCA, 3040-3, CMP, 28965-2, 87145-1, 12031- 1 #### [facility] ([id number]) [address] [place] [address] 27438 Neutrophils/100 WBC (Bld) 51.3 % Normal [facility] Comment on above: Performed By: #### Clara BCA, 3040-3, CMP, 00439-9, 05541-6, 70926- 1 #### [facility] ([id number]) [address] [place] [address] 26061 Platelet mean volume (Bld) [Entitic vol] 8.2 fL Normal 7-12 [facility] Comment on above: Performed By: #### Clara BCA, 3040-3, CMP, 20635-1, 14198-9, 29933- 1 #### [facility] ([id number]) [address] [place] [address] 72566 Platelets (Bld) [#/Vol] 266 10*3/uL Normal 150-450 [facility] Comment on above: Performed By: #### Clara BCA, 3040-3, CMP, 44013-3, 03203-5, 48418- 1 #### [facility] ([id number]) [address] [place] [address] RBC COUNT 4.19 X10E12/L Normal 3.80-5.20 [facility] Comment on above: Performed By: #### C BCA, 3040-3, CMP, 94650-9, 79464-4, 43098- 1 #### [facility] ([id number]) [address] [place] [address] 90999 WBC (Bld) [#/Vol] 7.7 10*3/uL Normal 4.0-11.0 [facility] Comment on above: Performed By: #### C BCA, 3040-3, CMP, 16974-5, 56042-6, 87655- 1 #### [facility] ([id number]) [address] [place] [address] ABDOMEN AND PELVIS WO CON Ton [...] Presley MD on 12/29/2023 6:27 AM Normal [facility] ETHANOLon 12-29-2023 Ethanol [Mass/Vol] mg/dL Normal 0.00-0.08 [facility] Comment on above: Result Comment: This report is intended for use in clinical monitoring or management of patients. Performed By: #### C BCA, 3040-3, CMP, 03341-2, 20721-5, 49093-6 #### [facility] ([id number]) [address] [place] [address] 28237 Fibrin D-dimer DDU (PPP) [Ma ss/Vol]on 12-29-2023 D DIMER <150 Normal <255 [facility] Comment on above: Result Comment: Results <255 ng/mL DDU: The presence of a VTE can safely be excluded with a negative D-Dimer result and Wells score. A negative result doesn't exclude the possibility of DIC. The test be repeated along with other diagnostic tests if the patient's symptoms persist or worsen. [email or web address] Performed By: #### C BCA, 3040-3, CMP, 37277-5, 67168-3, 72797-4 #### [facility] ([id number]) [address] [place] [address] 76485 LIPASEon 12-29-2023 Lipase [Catalytic activity/Vol] 55 U/L High 17-40 [facility] Comment on above: Performed By: #### C BCA, 3040-3, CMP, 77549-9, 74656-0, 26464- 1 #### [facility] ([id number]) [address] [place] [address] 49392 LIVER PANELon 12-29-2023 Albumin [Mass/Vol] 3.9 g/dL Normal 3.2-5.3 [facility] Comment on above: Performed By: #### C BCA, 3040-3, CMP, 11839-5, 01980-4, 54406- 1 #### [facility] ([id number]) [address] [place] [address] 16554 ALP [Catalytic activity/Vol] 111 U/L Normal 39-130 [facility] Comment on above: Performed By: #### C BCA, 3040-3, CMP, 59030-8, 43710-5, 32578- 1 #### [facility] ([id number]) [address] [place] [address] 56053 ALT [Catalytic activity/Vol] 11 U/L Normal 0-31 [facility] Comment on above: Performed By: #### C BCA, 3040-3, CMP, 04421-1, 58172-7, 77054- 1 #### [facility] ([id number]) [address] [place] [address] 78255 AST [Catalytic activity/Vol] 23 U/L Normal 0-41 [facility] Comment on above: Performed By: #### C BCA, 3040-3, CMP, 79445-2, 28058-8, 72491- 1 #### [facility] ([id number]) [address] [place] [address] 73477 Bilirubin [Mass/Vol] 0.5 mg/dL Normal 0.3-1.2 [facility] Comment on above: Result Comment: RESU LTS QUESTIONABLE DUE TO HEMOLYSIS Performed By: #### C BCA, 3040-3, CMP, 14886-2, 88388-9, 81214-6 #### [facility] ([id number]) [address] [place] [address] 68007 Bilirubin.direct [Mass/Vol] 0.3 mg/dL Normal 0.0-0.4 [facility] Comment on above: Performed By: #### C BCA, 3040-3, CMP, 90666-3, 04215-3, 48634- 1 #### [facility] ([id number]) [address] [place] [address] 22649 Protein [Mass/Vol] 6.9 g/dL Normal 6.0-8.0 [facility] Comment on above: Performed By: #### C BCA, 3040-3, CMP, 01397-4, 99854-9, 85752- 1 #### [facility] ([id number]) [address] [place] [address] 95023 MAGNESIUMon 12-29-2023 Magnesium [Mass/Vol] 2.2 mg/dL Normal 1.8-2.6 [facility] Comment on above: Performed By: #### C EZEQUIEL, 3040-3, CMP, 36631-6, 50144-4, 62261- 1 #### [facility] ([id number]) [address] [place] [address] 94835 Troponin I.cardiac High sens itivity method [Mass/Vol]on 12-29-2023 1 HOUR TROP I, HIGH SENSITIVITY 2 ng/L Normal <16 [facility] Comment on above: Performed By: #### Clara NIEVES, 3040-3, CMP, 91423-9, 61132-8, 86317- 1 #### [facility] ([id number]) [address] [place] [address] 99959 TROPONIN I, HIGH SENSITIVITY 2 ng/L Normal <16 [facility] Comment on above: Performed By: #### Clara NIEVES, 3040-3, CMP, 57868-5, 01739-3, 07917- 1 #### [facility] ([id number]) [address] [place] [id number] CBC with Diffon 09-29-2023 Basophils (Bld) [#/Vol] 0.05 10*3/uL [facility] [facility] Basophils/100 WBC (Bld) 0 % 0 - 2 % [facility] Eosinophils (Bld) [#/Vol] 0.05 10*3/uL [facility] Eosinophils/100 WBC (Bld) 0 % Low 1 - 4 % [facility] Erythrocyte distribution width (RBC) [Ratio] 12.9 % 11.8 - 14.4 % [facility] Hematocrit (Bld) [Volume fraction] 40.3 % 36.3 - 47.1 % [facility] Hemoglobin (Bld) [Mass/Vol] 14.2 g/dL 11.9 - 15.1 g/dL [facility] Immature granulocytes (Bld) [#/Vol] [facility] Immature granulocytes/100 WBC (Bld) 0 % 0 [facility] Interpretation and review of laboratory results Abnormal [facility] Lymphocytes/100 WBC (Bld) 19 % Low 24 - 43 % [facility] Lymphocytes/100 WBC (Bld) 2.18 % [facility] MCH (RBC) [Entitic mass] 33.8 pg High 25.2 - 33.5 pg [facility] MCHC (RBC) [Mass/Vol] 35.2 g/dL High 28.4 - 34.8 g/dL [facility] MCV (RBC) [Entitic vol] 96.0 fL 82.6 - 102.9 fL [facility] Monocytes/100 WBC (Bld) 8 % 3 - 12 % [facility] Monocytes/100 WBC (Bld) 0.94 % [facility] Neutrophils/100 WBC (Bld) 73 % High 36 - 65 % [facility] Nucleated RBC/100 WBC (Bld) [Ratio] 0.0 % 0.0 per 100 WBC [facility] Platelet mean volume (Bld) [Entitic vol] 9.4 fL 8.1 - 13.5 fL [facility] Platelets (Bld) [#/Vol] 193 10*3/uL [facility] RBC (Bld) [#/Vol] 4.20 10*6/uL 3.95 - 5.11 m/uL [facility] Segmented neutrophils/100 WBC (Bld) 8.10 % [facility] WBC other (Bld) [#/Vol] 11.3 [facility] Abs. Basophil 0.05 k/uL Normal 0.00-0.20 [facility] Comment on above: Performed By: #### C DP, LIP, CP #### [facility] [address] [place] [address] Dr. [place], [place] [address] Social Worker Assistant: Ion Jasso MD Abs.Imm.Granulocyte <0.03 Normal 0.00-0.30 [facility] Comment on above: Performed By: #### C DP LIP, CP #### [address] [place] [address] Social Worker Assistant: Ion Jasso MD Abs.Neutrophil (Seg) 8.10 k/uL Normal 1.50-8.10 [facility] Comment on above: Performed By: #### C DP LIP, CP #### [address] [place] [address] Social Worker Assistant: Ion Jasso MD Basophils/100 WBC (Bld) 0 % Normal 0-2 [facility] Comment on above: Performed By: #### C REBECA PAYNE, CP #### [address] [place] [address] Social Worker Assistant: Ion Jasso MD Eosinophils (Bld) [#/Vol] 0.05 10*3/uL Normal 0.00-0.44 [facility] Comment on above: Performed By: #### C DP LIP, CP #### [address] [place] [address] Social Worker Assistant: Ion Jasso MD Eosinophils/100 WBC (Bld) 0 % Low 1-4 [facility] Comment on above: Performed By: #### C DP LIP, CP #### [address] Michel, [place] [address] Social Worker Assistant: Ion Jasso MD Erythrocyte distribution width (RBC) [Ratio] 12.9 % Normal 11.8-14.4 [facility] Comment on above: Performed By: #### C DP LIP, CP #### [address] [place] [address] Social Worker Assistant: Ion Jasso MD Hematocrit (Bld) [Volume fraction] 40.3 % Normal 36.3-47.1 [facility] Comment on above: Performed By: #### C REBECA PAYNE, CP #### [facility] [address] [place] [address] [address] [place], [place] [id number] Social Worker Assistant: Ion Jasso MD Hemoglobin (Bld) [Mass/Vol] 14.2 g/dL Normal 11.9-15.1 [facility] Comment on above: Performed By: #### C ELMER LIP, CP #### [address] [place] [address] Social Worker Assistant: Ion Jasso MD Immature granulocytes/100 WBC (Bld) 0 % Normal 0 [facility] Comment on above: Performed By: #### C REBECA PAYNE, CP #### [address] Michel, [facility]83 Social Worker Assistant: Ion Jasso MD Lymphocytes (Bld) [#/Vol] 2.18 10*3/uL Normal 1.10-3.70 [facility] Comment on above: Performed By: #### C REBECA PAYNE, CP #### [address] [place], [place] [id number] Social Worker Assistant: Ion Jasso MD Lymphocytes/100 WBC (Bld) 19 % Low 24-43 [facility] Comment on above: Performed By: #### C REBECA PAYNE, CP #### [address] [place] [address] Social Worker Assistant: Ion Jasso MD MCH (RBC) [Entitic mass] 33.8 pg High 25.2-33.5 [facility] Comment on above: Performed By: #### C ELMER LIP, CP #### [address] Michel, [place] [id number] Social Worker Assistant: Ion Jsaso MD MCHC (RBC) [Mass/Vol] 35.2 g/dL High 28.4-34.8 [facility] Comment on above: Performed By: #### C REBECA PAYNE, CP #### [address] Michel, [facility]83 Social Worker Assistant: Ion Jasso MD MCV (RBC) [Entitic vol] 96.0 fL Normal 82.6-102.9 [facility] Comment on above: Performed By: #### C REBECA PAYNE, CP #### [address] Michel, [place] [address] Social Worker Assistant: Ion Jasso MD Monocytes (Bld) [#/Vol] 0.94 10*3/uL Normal 0.10-1.20 [facility] Comment on above: Performed By: #### C REBECA PAYNE, CP #### [address] Michel, [place] [address] Social Worker Assistant: Ion Jasso MD Monocytes/100 WBC (Bld) 8 % Normal 3-12 [facility] Comment on above: Performed By: #### C REBECA PAYNE, CP #### [address] Michel, [facility]83 Social Worker Assistant: Ion Jasso MD Neutrophil (Seg) 73 % High 36-65 [facility] Comment on above: Performed By: #### C REBECA PAYNE, CP #### [address] Michel, [facility]83 Social Worker Assistant: Ion Jasso MD NRBC Automated 0.0 per 100 WBC Normal 0.0 [facility] Comment on above: Performed By: #### C REBECA PAYNE, CP #### [address] Michel, [facility]83 Social Worker Assistant: Ion Jasso MD Platelet mean volume (Bld) [Entitic vol] 9.4 fL Normal 8.1-13.5 [facility] Comment on above: Performed By: #### C ELMER LIP, CP #### [facility] [address] [place], [place] [id number] Social Worker Assistant: Ion Jasso MD Platelets (Bld) [#/Vol] 193 10*3/uL Normal 138-453 [facility] Comment on above: Performed By: #### C DP LIP, CP #### [facility] [address] [place], [place] [id number] Social Worker Assistant: Ion Jasso MD RBC (Bld) [#/Vol] 4.20 10*6/uL Normal 3.95-5.11 [facility] Comment on above: Performed By: #### C REBECA PAYNE, CP #### [facility] [address] [place], [place] 2328683 Social Worker Assistant: Ion Jasso MD WBC (Bld) [#/Vol] 11.3 10*3/uL Normal 3.5-11.3 [facility] Comment on above: Performed By: #### C REBECA PAYNE, CP #### [facility] [address] [place], [place] [id number] Social Worker Assistant: Ion Jasso MD [facility] 09-29-2023 Albumin [Mass/Vol] 4.4 g/dL 3.5 - 5.2 g/dL [facility] Albumin/Globulin [Mass ratio] 1.9 {ratio} 1.0 - 2.5 [facility] ALP [Catalytic activity/Vol] 123 U/L High 35 - 104 U/L [facility] ALT [Catalytic activity/Vol] 15 U/L 5 - 33 U/L [facility] Anion gap [Moles/Vol] 10 mmol/L 9 - 17 mmol/L [facility] AST [Catalytic activity/Vol] 21 U/L NINF - 32 U/L [facility] Bilirubin [Mass/Vol] 0.3 mg/dL 0.3 - 1 .2 mg/dL [facility] Calcium [Mass/Vol] 10.0 mg/dL 8.6 - 10. 4 mg/dL [facility] Chloride [Moles/Vol] 104 mmol/L 98 - 10 7 mmol/L [facility] CO2 [Moles/Vol] 24 mmol/L 20 - 31 mmol/L [facility] Creatinine [Mass/Vol] 0.8 mg/dL 0.5 - 0.9 mg/dL [facility] Est, Glom Filt Rate 88 - PINF [facility] Comment on above: These results are not intended for use [...] following therapy that affects renal tubular secretion. Glucose [Mass/Vol] 126 mg/dL High 70 - 99 mg/dL [facility] Potassium [Moles/Vol] 3.5 mmol/L Low 3.7 - 5.3 mmol/L [facility] Protein [Mass/Vol] 6.7 g/dL 6.4 - 8.3 g/dL [facility] Sodium [Moles/Vol] 138 mmol/L 135 - 144 mmol/L [facility] Urea nitrogen [Mass/Vol] 10 mg/dL 6 - 20 mg/dL [facility] Urea nitrogen/Creatinine [Mass ratio] 13 mg/mg 9 - 20 [facility] Comp Metabolic Profon 2023 Albumin [Mass/Vol] 4.4 g/dL Normal 3.5-5.2 [facility] Comment on above: Performed By: #### C REBECA PAYNE, CP #### [facility] [address] [place] [address] Social Worker Assistant: Ion Jasso MD Albumin/Glob Ratio 1.9 Normal 1.0-2.5 [facility] Comment on above: Performed By: #### C REBECA PAYNE, CP #### [facility] [address] [place] [address] Social Worker Assistant: Ion Jasso MD Alkaline Phos 123 U/L High 35-104 [facility] Comment on above: Performed By: #### C DP, LIP, CP #### [facility] [address] [place] [address] Social Worker Assistant: Ion Jasso MD ALT [Catalytic activity/Vol] 15 U/L Normal 5-33 [facility] Comment on above: Performed By: #### C DP, LIP, CP #### [facility] [address] [place] [address] Social Worker Assistant: Ion Jasso MD Anion gap [Moles/Vol] 10 mmol/L Normal 9-17 [facility] Comment on above: Performed By: #### C DP LIP, CP #### [facility] [address] [place] [address] Social Worker Assistant: Ion Jasso MD AST [Catalytic activity/Vol] 21 U/L Normal <32 [facility] Comment on above: Performed By: #### C DP LIP, CP #### [facility] [address] [place], [place] 1635883 Social Worker Assistant: Ion Jasso MD Bilirubin [Mass/Vol] 0.3 mg/dL Normal 0.3-1.2 [facility] Comment on above: Performed By: #### C DP LIP, CP #### [facility] [address] [place], [place] 1801183 Social Worker Assistant: Ion Jasso MD BUN/CRE Ratio 13 Normal 9-20 [facility] Comment on above: Performed By: #### C DP, LIP, CP #### [facility] [address] [place] [address] Social Worker Assistant: Ion Jasso MD Calcium [Mass/Vol] 10.0 mg/dL Normal 8.6-10.4 [facility] Comment on above: Performed By: #### C DP LIP, CP #### [facility] [address] [place], [place] 7361683 Social Worker Assistant: Ion Jasso MD Chloride [Moles/Vol] 104 mmol/L Normal 98-107 [facility] Comment on above: Performed By: #### C DP LIP, CP #### [facility] [address] [place], [place] 1214383 Social Worker Assistant: Ion Jasso MD CO2 [Moles/Vol] 24 mmol/L Normal 20-31 [facility] Comment on above: Performed By: #### C REBECA PAYNE, CP #### [facility] [address] [place], [place] 3625983 Social Worker Assistant: Ion Jasso MD Creatinine [Mass/Vol] 0.8 mg/dL Normal 0.5-0.9 [facility] Comment on above: Performed By: #### C ELMER LIP, CP #### [facility] [address] [place] [address] Social Worker Assistant: Ion Jasso MD GFR/1.73 sq M.predicted among non-blacks MDRD (S/P/Bld) [Vol rate/Area] 88 mL/min/{1.73_m2} Normal >60 [facility] Comment on above: Result Comment: These results [...] renal tubular secretion. Performed By: #### C ELMER LIP, CP #### [facility] [address] [place] [address] Social Worker Assistant: Ion Jasso MD Glucose [Mass/Vol] 126 mg/dL High 70-99 [facility] Comment on above: Performed By: #### C DP, LIP, CP #### [facility] [address] [place], [place] 0261883 Social Worker Assistant: Ion Jasso MD Potassium [Moles/Vol] 3.5 mmol/L Low 3.7-5.3 [facility] Comment on above: Performed By: #### C ELMER LIP, CP #### [facility] [address] [place] [address] Dr. [place], [place] [phone] Social Worker Assistant: Ion Jasso MD Protein [Mass/Vol] 6.7 g/dL Normal 6.4-8.3 [facility] Comment on above: Performed By: #### C ELMER LIP, CP #### [address] [place], [place] 6818483 Social Worker Assistant: Ion Jasso MD Sodium [Moles/Vol] 138 mmol/L Normal 135-144 [facility] Comment on above: Performed By: #### C ELMER LIP, CP #### [address] [place], [place] [phone] Social Worker Assistant: Ion Jasso MD Urea nitrogen [Mass/Vol] 10 mg/dL Normal 6-20 [facility] Comment on above: Performed By: #### C ELMER LIP, CP #### [address] [place], [place] 3226083 Social Worker Assistant: Ion Jasso MD Lipaseon 09-29-2023 Lipase [Catalytic activity/Vol] 141 U/L High 13 - 60 U/L [facility] Lipase [Catalytic activity/Vol] 141 U/L High 13-60 [facility] Comment on above: Performed By: #### C ELMER LIP, CP #### [address] [place] [address] Social Worker Assistant: Ion Jasso MD Microscopic Urinalysison Bacteria LM Ql (Urine sed) TRACE Abnormal None [facility] Epithelial cells LM.HPF (Urine sed) [#/Area] 2 TO 5 [facility] Interpretation and review of laboratory results Abnormal [facility] RBC LM.HPF (Urine sed) [#/Area] 0 TO 2 [facility] WBC LM.HPF (Urine sed) [#/Area] 0 TO 2 [facility] No Panel Informationon 09-28 Interpretation and review of laboratory results Abnormal [facility] UA w/Reflex Cultureon 2023 Bilirubin, SemiQt,Ur Negative Normal NEG [facility] Comment on above: Performed By: #### C DP, LIP, CP #### [address] [place] [id number] Social Worker Assistant: Ion Jasso MD Blood, Urine Negative Normal [facility] Comment on above: Performed By: #### C DP, LIP, CP #### [address] [place], [facility]83 Social Worker Assistant: Ion Jasso MD Clarity (U) Clear Normal CLEAR [facility] Comment on above: Performed By: #### C DP, LIP, CP #### [address] [place] [address]3983 Social Worker Assistant: Ion Jasso MD Color (U) Yellow Normal YEL [facility] Comment on above: Performed By: #### C DP, LIP, CP #### [address] [place], [facility]83 Social Worker Assistant: Ion Jasso MD Glucose Ql (U) Negative Normal NEG [facility] Comment on above: Performed By: #### C DP, LIP, CP #### [address] [place] [address]3983 Social Worker Assistant: Ion Jasso MD Ketones Ql (U) Negative Normal NEG [facility] Comment on above: Performed By: #### C DP, LIP, CP #### [facility] [address] [place] [address] Social Worker Assistant: Ion Jasso MD Leukocyte esterase Test strip Ql (U) Negative Normal NEG [facility] Comment on above: Performed By: #### C DP, LIP, CP #### [address] [place], [place] 0255283 Social Worker Assistant: Ion Jasso MD Nitrite,Ur Negative Normal NEG [facility] Comment on above: Performed By: #### C DP LIP, CP #### [address] [place] [address] Social Worker Assistant: Ion Jasso MD PH,Ur 6.0 Normal 5.0-9.0 [facility] Comment on above: Performed By: #### C DP LIP, CP #### [address] [place] [address] Social Worker Assistant: Ion Jasso MD Protein Ql (U) Negative Normal NEG [facility] Comment on above: Performed By: #### C DP LIP, CP #### [address] [place] [address] Social Worker Assistant: Ion Jasso MD Spec. Nitro,Ur >1.030 High 1.010-1.02 0 [facility] Comment on above: Performed By: #### C DP LIP, CP #### [address] [place], [place] 3362283 Social Worker Assistant: Ion Jasso MD Urobilinogen,Ur Normal Normal 0.0-1.0 [facility] Comment on above: Performed By: #### C DP LIP, CP #### [address] [place], [place] 6267583 Social Worker Assistant: Ion Jasso MD Urinalysis with Reflex to Cu ltureon 09-29-2023 Bilirubin Ql (U) Negative NEGATIVE [facility] Clarity (U) Clear Clear [facility] Color (U) Yellow Yellow [facility] Glucose Test strip (U) [Mass/Vol] Negative NEGATIVE mg/dL [facility] Hemoglobin Auto test strip Ql (U) Negative NEGATIVE [facility] Interpretation and review of laboratory results Abnormal [facility] Ketones (U) [Mass/Vol] Negative NEGAT [place] mg/dL [facility] Leukocyte esterase Test strip Ql (U) Negative NEGATIVE [facility] Nitrite Ql (U) Negative NEGATIVE [place] [facility] pH (U) 6.0 [pH] 5.0 - 9.0 [facility] Protein (U) [Mass/Vol] Negative NEGAT [place] mg/dL [facility] Specific gravity (U) [Rel density] High 1.010 - 1.020 [facility] Urobilinogen Qn (U) Normal 0.0 - 1. 0 EU/dL [facility] Urinalysis,Microon 4 Bacteria TRACE Abnormal NONE [facility] Comment on above: Performed By: #### C REBECA PAYNE, CP #### [facility] [address] [place] [address] Social Worker Assistant: Ion Jasso MD Epithelial cells LM Ql (Urine sed) 2 TO 5 Normal 0-25 [facility] Comment on above: Performed By: #### C REBECA PAYNE, CP #### [facility] [address] [place] [address] Social Worker Assistant: Ion Jasso MD Urine RBC's 0 TO 2 Normal 0-2 [facility] Comment on above: Performed By: #### C REBECA PAYNE, CP #### [facility] [address] [place] [address] Social Worker Assistant: Ion Jasso MD Urine WBC's 0 TO 2 Normal 0-5 [facility] Comment on above: Performed By: #### C ELMER LIP, CP #### [facility] [address] [place] [address] Social Worker Assistant: Ion Jasso MD UPPER EUSon 09-08-2023 [facility] Gastroenterology Patient Name: Chioma Rainey Procedure Date: 09/08/2023 7:35 AM Date of : 1970 Admit Type: Outpatient Age: 53 Room: EUS Proc Room 01 Gender: Female Note Status: Finalized Attending MD: Sabrina Dee MD, MPH, [id number] Procedure: Upper EUS Indications: Chronic pancreatitis, Celiac plexus block for pain secondary to chronic pancreatitis Providers: Sabrina Dee MD, MPH (Doctor), Marybel Jones RN (Nurse), Love Zeng RN (Nurse), LOW [...] the (more content not included)... LAB, [facility] Radiology Study observation (narrative) [facility] Alanine aminotransferase [En zymatic activity/volume] in Serum or PlasmaOrdered By: Xiang Kellogg on 04-18-2023 ALT [Catalytic activity/Vol] 9 U/L Normal 7-52 [facility] Comment on above: Performed By: #### L IPASE, CBC, CMP, HS TROP #### [address] Albumin [Mass/volume] in Ser um or Plasma by Bromocresol green (BCG) dye binding methoOrdered By: Xiang Kellogg on 04-18-2023 Albumin BCG dye [Mass/Vol] 4.5 g/dL 3.5-5.7 [facility] Alkaline phosphatase [Enzyma tic activity/volume] in Serum or PlasmaOrdered By: Xiang Kellogg on 04-18-2023 ALP [Catalytic activity/Vol] 107 U/L High 34-104 [facility] Comment on above: Performed By: #### L IPASE, CBC, CMP, HS TROP #### [address] Amylase [Enzymatic activity/ volume] in Serum or PlasmaOrdered By: Xiang Kellogg on 04-18-2023 Amylase [Catalytic activity/Vol] 72 U/L Normal 29-103 [facility] Comment on above: Performed By: #### L IPASE, CBC, CMP, HS TROP #### [address] Aspartate aminotransferase [ Enzymatic activity/volume] in Serum or PlasmaOrdered By: Xiang Kellogg on 04-18-2023 AST [Catalytic activity/Vol] 14 U/L Normal 13-39 [facility] Comment on above: Performed By: #### L IPASE, CBC, CMP, HS TROP #### [address] Automated basophil %Ordered By: Xiang Kellogg on 04-18-2023 Basophils/100 WBC (Bld) 0.8 % Normal . [facility] Comment on above: Performed By: #### L IPASE, CBC, CMP, HS TROP #### [address] Automated basophil countOrde red By: Xiang Kellogg on 04-18-2023 Basophils (Bld) [#/Vol] 0.1 10*3/uL Normal 0.0-0.2 [facility] Comment on above: Result Comment: PERF ORMED BY: [place] [address] PATHOLOGIST IT DATA ARCHITECT PAULA RODRIGUES M.D. Performed By: #### L IPASE, CBC, CMP, HS TROP #### [address] Automated blood monocyte cou ntOrdered By: Xiang Kellogg on 04-18-2023 Monocytes (Bld) [#/Vol] 0.6 10*3/uL Normal 0.0-0.8 [facility] Comment on above: Performed By: #### L IPASE, CBC, CMP, HS TROP #### [address] Automated eosinophil %Ordere d By: Xiang Kellogg on 04-18-2023 Eosinophils/100 WBC (Bld) 0.2 % Normal . [facility] Comment on above: Performed By: #### L IPASE, CBC, CMP, HS TROP #### [address] Automated eosinophil countOr dered By: Xiang Kellogg on 04-18-2023 Eosinophils (Bld) [#/Vol] 0.0 10*3/uL Normal 0.0-0.45 [facility] Comment on above: Performed By: #### L IPASE, CBC, CMP, HS TROP #### [address] Automated monocyte %Ordered By: Xiang Kellogg on 04-18-2023 Monocytes/100 WBC (Bld) 5.4 % Normal . [facility] Comment on above: Performed By: #### L IPASE, CBC, CMP, HS TROP #### [address] Automated neutrophil %Ordere d By: Xiang Kellogg on 04-18-2023 Neutrophils/100 WBC (Bld) 80.8 % Normal . [facility] Comment on above: Performed By: #### L IPASE, CBC, CMP, HS TROP #### [address] Basic Metabolic Panelon 04-09 Creatinine Clr Calc Pharmacy 64.32 Normal [facility] Comment on above: Performed By: #### L IPASE, CBC, CMP, HS TROP #### [address] GFR/1.73 sq M.predicted MDRD (S/P/Bld) [Vol rate/Area] mL/min/{1.73_m2} Normal [facility] Comment on above: Performed By: #### L IPASE, CBC, CMP, HS TROP #### [facility] [address] [place] [id number] [facility] Bilirubin.direct [Mass/volum e] in Serum or PlasmaOrdered By: Xiang Kellogg on 04-18-2023 Bilirubin.direct [Mass/Vol] 0.00 mg/dL 0.03-0.18 [facility] Comment on above: If the DBIL is less than 0.1, IBIL is not able to becalculated. Bilirubin.total [Mass/volume ] in Serum or PlasmaOrdered By: Xiang Kellogg on 04-18-2023 Bilirubin [Mass/Vol] 0.3 mg/dL Normal 0.3-1.0 [facility] Comment on above: Performed By: #### L IPASE, CBC, CMP, HS TROP #### [facility] [address] [place], [place] [id number] [facility] CT abdomen pelvis wo conon 0 04-18-2023 CT abdomen pelvis wo con [facility] [place] [address] [place] [address] CT Scan Report Signed Patient: Chioma Arciniega MR#: [id number] : 1970 Acct:[id number] Age/Sex: 52 / F ADM Date: 04/18/23 [...] Rajeev Ulloa M.D.04/18/2023 5:07 PM Dictation Location: [place] [address] Transcribed By: RICA 04/18/231706 Dictated By: Rajeev Ulloa II, MD 04/18/231700 Signed By: 04/18/231706 Normal [facility] Calcium [Mass/volume] in Ser um or PlasmaOrdered By: Xiang Kellogg on 04-18-2023 Calcium [Mass/Vol] 11.1 mg/dL High 8.6-10.3 [facility] Comment on above: Performed By: #### L IPASE, CBC, CMP, HS TROP #### [facility] [address] Carbon dioxide, total [Moles /volume] in Serum or PlasmaOrdered By: Xiang Kellogg on 04-18-2023 CO2 [Moles/Vol] 30.2 mmol/L Normal 21.0-31.0 [facility] Comment on above: Performed By: #### L IPASE, CBC, CMP, HS TROP #### [facility] [address] [place] [id number] [place] Chloride [Moles/volume] in S erika or PlasmaOrdered By: Xiang Kellogg on 04-18-2023 Chloride [Moles/Vol] 103 mmol/L Normal 98-107 [facility] Comment on above: Performed By: #### L IPASE, CBC, CMP, HS TROP #### [address] Complete Blood Count Auto Di ffon 04-18-2023 Mean Corpuscular HGB Conc 34.3 g/dL Normal 32.0-35.0 [facility] Comment on above: Performed By: #### L IPASE, CBC, CMP, HS TROP #### [address] Monocytes/100 WBC (Bld) 16.25 % Normal 0.00-20.00 [facility] Comment on above: Performed By: #### L IPASE, CBC, CMP, HS TROP #### [address] NRBC% 0.0 /100{WBC} Normal 0-0.5 [facility] Comment on above: Performed By: #### L IPASE, CBC, CMP, HS TROP #### [address] Creatinine [Mass/volume] in Serum or PlasmaOrdered By: Xiang Kellogg on 04-18-2023 Creatinine [Mass/Vol] 0.80 mg/dL Normal 0.60-1.20 [facility] Comment on above: Performed By: #### L IPASE, CBC, CMP, HS TROP #### [address] Erythrocyte distribution wid th [Ratio] by Automated countOrdered By: Xiang Kellogg on 04-18-2023 Erythrocyte distribution width (RBC) [Ratio] 13.4 % Normal 11.9-15.3 [facility] Comment on above: Performed By: #### L IPASE, CBC, CMP, HS TROP #### [address] Erythrocytes [#/volume] in B lood by Automated countOrdered By: Xiang Kellogg on 04-18-2023 RBC (Bld) [#/Vol] 4.35 10*6/uL Normal 3.60-5.00 [facility] Comment on above: Performed By: #### L IPASE, CBC, CMP, HS TROP #### [facility] [address] Ethanol [Mass/volume] in Ser um or PlasmaOrdered By: Xiang Kellogg on 04-18-2023 Ethanol [Mass/Vol] mg/dL Normal [facility] Comment on above: Performed By: #### L IPASE, CBC, CMP, HS TROP #### [facility] [address] Ethanol [Mass/Vol] TNP [facility] Comment on above: Test not performed Ethyl Alcohol Profileon 04-09 Percent Ethanol Not performed Normal [facility] Comment on above: Result Comment: PERF ORMED BY: [place] [address] PATHOLOGIST IT DATA ARCHITECT PAULA RODRIGUES M.D. Performed By: #### L IPASE, CBC, CMP, HS TROP #### [address] Glucose [Mass/volume] in Ser um or PlasmaOrdered By: Xiang Kellogg on 04-18-2023 Glucose [Mass/Vol] 108 mg/dL High 70-100 [facility] Comment on above: ADA recommended refe rence rangeRandom Glucose Reference Range is dependent on time and content of last meal. Glucose of more than 200 mg/dL in a nonstressed, ambulatory subject supports the diagnosis of Diabetes Mellitus. Result Comment: [place] om Glucose Reference Range is dependent on time and content of last meal. Glucose of more than 200 mg/dL in a nonstressed, ambulatory subject supports the diagnosis of Diabetes Mellitus. ADA recommended reference range Performed By: #### L IPASE, CBC, CMP, HS TROP #### [facility] [address] [place] [id number] [place] Hematocrit [Volume Fraction] of Blood by Automated countOrdered By: Xiang Kellogg on 04-18-2023 Hematocrit (Bld) [Volume fraction] 41.6 % Normal 34.0-46.4 [facility] Comment on above: Performed By: #### L IPASE, CBC, CMP, HS TROP #### [address] Hemoglobin [Mass/volume] in BloodOrdered By: Xiang Kellogg on 04-18-2023 Hemoglobin (Bld) [Mass/Vol] 14.3 g/dL Normal 11.8-15.4 [facility] Comment on above: Performed By: #### L IPASE, CBC, CMP, HS TROP #### [address] Hepatic Panelon 04-18-2023 Albumin [Mass/Vol] 4.5 g/dL Normal 3.5-5.7 [facility] Comment on above: Performed By: #### L IPASE, CBC, CMP, HS TROP #### [address] Bilirubin,Indirect 0.3 mg/dL Normal [facility] Comment on above: Performed By: #### L IPASE, CBC, CMP, HS TROP #### [address] Bilirubin.indirect [Mass/Vol] 0.00 mg/dL Low 0.03-0.18 [facility] Comment on above: Result Comment: If t he DBIL is less than 0.1, IBIL is not able to be calculated. Performed By: #### L IPASE, CBC, CMP, HS TROP #### [address] Leukocytes [#/volume] correc aurelia for nucleated erythrocytes in Blood by Automated counOrdered By: Xiang Kellogg on 04-18-2023 WBC corrected for nucl RBC Auto (Bld) [#/Vol] 12.1 10*3/uL 3.8-11.6 [facility] Leukocytes [#/volume] in Blo od by Automated countOrdered By: Xiang Kellogg on 04-18-2023 WBC (Bld) [#/Vol] 12.1 10*3/uL High 3.8-11.6 [facility] Comment on above: Performed By: #### L IPASE, CBC, CMP, HS TROP #### [facility] [address] [place] [address] [place] Lipase [Enzymatic activity/v olume] in Serum or PlasmaOrdered By: Xiagn Kellogg on 04-18-2023 Lipase [Catalytic activity/Vol] 47.0 U/L Normal 11.0-82.0 [facility] Comment on above: Result Comment: PERF ORMED BY: [place] [address] PATHOLOGIST IT DATA ARCHITECT PAULA RODRIGUES M.D. Performed By: #### L IPASE, CBC, CMP, HS TROP #### [address] Lymphocytes [#/volume] in Bl ood by Automated countOrdered By: Xiang Kellogg on 04-18-2023 Lymphocytes (Bld) [#/Vol] 1.6 10*3/uL Normal 1.00-4.8 [facility] Comment on above: Performed By: #### L IPASE, CBC, CMP, HS TROP #### [place] [address] [place] Lymphocytes/100 leukocytes i n Blood by Automated countOrdered By: Xiang Kellogg on 04-18-2023 Lymphocytes/100 WBC (Bld) 12.8 % Normal . [facility] Comment on above: Performed By: #### L IPASE, CBC, CMP, HS TROP #### [address] MCH [Entitic mass] by Automa aurelia countOrdered By: Xiang Kellogg on 04-18-2023 MCH (RBC) [Entitic mass] 32.7 pg Normal 24.7-34.3 [facility] Comment on above: Performed By: #### L IPASE, CBC, CMP, HS TROP #### [address] MCHC Auto (RBC) [Mass/Vol]Or dered By: Xiang Kellogg on 04-18-2023 MCHC (RBC) [Mass/Vol] 34.3 g/dL 32.0-35.0 [facility] MCV [Entitic volume] by Auto mated countOrdered By: Xiang Kellogg on 04-18-2023 MCV (RBC) [Entitic vol] 95.5 fL Normal 80-100 [facility] Comment on above: Performed By: #### L IPASE, CBC, CMP, HS TROP #### [facility] [address] Monocyte distribution width [Entitic volume] in Blood by AutomatedOrdered By: Xiang Kellogg on 04-18-2023 Monocyte distribution width Auto (Bld) [Entitic vol] 16.25 % 0.00-20.00 [facility] Neutrophils [#/volume] in Bl ood by Automated countOrdered By: Xiang Kellogg on 04-18-2023 Neutrophils (Bld) [#/Vol] 9.8 10*3/uL High 1.8-7.7 [facility] Comment on above: Performed By: #### L IPASE, CBC, CMP, HS TROP #### [facility] [address] [place] [address] No Panel InformationOrdered By: Xiang Kellogg on 04-18-2023 Estimated GFR (CKD-EPI) > 60.0 mL/Min [facility] Creatinine Clearance (Chem 64.32 [facility] Nucleated erythrocytes [Pres ence] in Blood by Automated countOrdered By: Xiang Kellogg on 04-18-2023 Nucleated RBC Auto Ql (Bld) 0.0 /100{WBC} 0-0.5 [facility] Platelet mean volume [Entiti c volume] in Blood by Automated countOrdered By: Xiang Kellogg on 04-18-2023 Platelet mean volume (Bld) [Entitic vol] 8.1 fL Normal 6.3-10.7 [facility] Comment on above: Performed By: #### L IPASE, CBC, CMP, HS TROP #### [facility] [address] [place] [address] [place] Platelets [#/volume] in Bloo d by Automated countOrdered By: Xiang Kellogg on 04-18-2023 Platelets (Bld) [#/Vol] 227 10*3/uL Normal 150-450 [facility] Comment on above: Performed By: #### L IPASE, CBC, CMP, HS TROP #### [facility] [address] [place] [address] Potassium [Moles/volume] in Serum or PlasmaOrdered By: Xiang Kellogg on 04-18-2023 Potassium [Moles/Vol] 3.2 mmol/L Low 3.5-5.1 [facility] Comment on above: Performed By: #### L IPASE, CBC, CMP, HS TROP #### [facility] [address] [place] [address] Protein [Mass/volume] in Ser um or PlasmaOrdered By: Xiang Kellogg on 04-18-2023 Protein [Mass/Vol] 6.7 g/dL Normal 6.4-8.9 [facility] Comment on above: Performed By: #### L IPASE, CBC, CMP, HS TROP #### [address] Serum globulin measurement b y calculation (mass/volume)Ordered By: Xiang Kellogg on 04-18-2023 Globulin (S) [Mass/Vol] 2.2 g/dL [facility] Comment on above: Performed By: #### L IPASE, CBC, CMP, HS TROP #### [facility] [address] [place] [address] Serum or plasma albumin/glob ulin mass ratioOrdered By: Xiang Kellogg on 04-18-2023 Albumin/Globulin [Mass ratio] 2.0 {ratio} [facility] Comment on above: Performed By: #### L IPASE, CBC, CMP, HS TROP #### [facility] [address] [place] [address] Serum or plasma anion gap de terminationOrdered By: Xiang Kellogg on 04-18-2023 Anion gap [Moles/Vol] 10.0 mmol/L Normal 6.0-15.0 [facility] Comment on above: Performed By: #### L IPASE, CBC, CMP, HS TROP #### [facility] [address] [place] [address] Serum or plasma non-glucuron idated bilirubin measurement (mass/volume)Ordered By: Xiang Kellogg on 04-18-2023 Bilirubin.indirect [Mass/Vol] 0.3 mg/dL [facility] Sodium [Moles/volume] in Ser um or PlasmaOrdered By: Xiang Kellogg on 04-18-2023 Sodium [Moles/Vol] 140 mmol/L Normal 136-145 [facility] Comment on above: Performed By: #### L IPASE, CBC, CMP, HS TROP #### [facility] [address] Urea nitrogen [Mass/volume] in Serum or PlasmaOrdered By: Xiang Kellogg on 04-18-2023 Urea nitrogen [Mass/Vol] 7 mg/dL Normal 7-25 [facility] Comment on above: Performed By: #### L IPASE, CBC, CMP, HS TROP #### [facility] [address] abdomen pelvis w conon CT abdomen pelvis w con [facility] [place] [address] [place] [address] CT Scan Report Signed Patient: Chioma Arciniega MR#: [id number] : 1970 Acct:[id number] Age/Sex: 52 / F ADM Date: 04/11/23 Loc: ER Room: Type: [facility] ER Attending Dr: Copies to: Rivera [...] Nai Salazar M.D.04/12/2023 9:01 AM Dictation Location: [place] [address] Transcribed By: [facility] 04/12/23 0901 Dictated By: Nai Salazar MD 04/12/23 0856 Signed By: 04/12/23 0901 Normal [facility] Activated partial thrombopla stin time (aPTT) in platelet poor plasma by coagulation aOrdered By: Rivera Lopez on 04-11-2023 aPTT Coag (PPP) [Time] 23.3 s 25.1-36.5 [facility] Comment on above: A hematocrit value g reater than 55% may lead to inaccurate results in coagulation testing. Patients having hematocrit values >55% require a special collection tube for coagulation studies. Please contact the laboratory at [phone] for redraw instructions. Alanine aminotransferase [En zymatic activity/volume] in Serum or PlasmaOrdered By: Rivera Lopez on 04-11-2023 ALT [Catalytic activity/Vol] 13 U/L Normal 7-52 [facility] Comment on above: Performed By: #### L IPASE, CBC, CMP, HS TROP #### [facility] [address] [place] [address] Albumin [Mass/volume] in Ser um or Plasma by Bromocresol green (BCG) dye binding methoOrdered By: Rivera Lopez on 04-11-2023 Albumin BCG dye [Mass/Vol] 4.5 g/dL 3.5-5.7 [facility] Alkaline phosphatase [Enzyma tic activity/volume] in Serum or PlasmaOrdered By: Rivera Lopez on 04-11-2023 ALP [Catalytic activity/Vol] 111 U/L High 34-104 [facility] Comment on above: Performed By: #### L IPASE, CBC, CMP, HS TROP #### [address] Aspartate aminotransferase [ Enzymatic activity/volume] in Serum or PlasmaOrdered By: Rivera Lopez on 04-11-2023 AST [Catalytic activity/Vol] 17 U/L Normal 13-39 [facility] Comment on above: Performed By: #### L IPASE, CBC, CMP, HS TROP #### [address] Automated basophil %Ordered By: Rivera Lopez on 04-11-2023 Basophils/100 WBC (Bld) 0.4 % Normal . [facility] Comment on above: Performed By: #### L IPASE, CBC, CMP, HS TROP #### [address] Automated basophil countOrde red By: Rivera Lopez on 04-11-2023 Basophils (Bld) [#/Vol] 0.1 10*3/uL Normal 0.0-0.2 [facility] Comment on above: Result Comment: PERF ORMED BY: [place] [address] PATHOLOGIST IT DATA ARCHITECT PAULA RODRIGUES M.D. Performed By: #### L IPASE, CBC, CMP, HS TROP #### [address] Automated blood monocyte cou ntOrdered By: Rivera Lopez on 04-11-2023 Monocytes (Bld) [#/Vol] 0.6 10*3/uL Normal 0.0-0.8 [facility] Comment on above: Performed By: #### L IPASE, CBC, CMP, HS TROP #### [address] Automated eosinophil %Ordere d By: Rivera Lopez on 04-11-2023 Eosinophils/100 WBC (Bld) 0.0 % Normal . [facility] Comment on above: Performed By: #### L IPASE, CBC, CMP, HS TROP #### [facility] [address] Automated eosinophil countOr dered By: Rivera Lopez on 04-11-2023 Eosinophils (Bld) [#/Vol] 0.0 10*3/uL Normal 0.0-0.45 [facility] Comment on above: Performed By: #### L IPASE, CBC, CMP, HS TROP #### [address] Automated erythrocytes count in urine sediment (number/area)Ordered By: Rivera Lopez on 04-11-2023 RBC Auto (Urine sed) [#/Area] 0-1 [HPF] 0-4 [facility] Automated leukocytes count i n urine sediment (number/area)Ordered By: Rivera Lopez on 04-11-2023 WBC Auto (Urine sed) [#/Area] 3-4 [HPF] 0-4 [facility] Automated monocyte %Ordered By: Rivera Lopez on 04-11-2023 Monocytes/100 WBC (Bld) 4.3 % Normal . [facility] Comment on above: Performed By: #### L IPASE, CBC, CMP, HS TROP #### [address] Automated neutrophil %Ordere d By: Rivera Lopez on 04-11-2023 Neutrophils/100 WBC (Bld) 87.2 % Normal . [facility] Comment on above: Performed By: #### L IPASE, CBC, CMP, HS TROP #### [address] Automated urine color determ inationOrdered By: Rivera Lopez on 04-11-2023 Color (U) Yellow Normal Yellow [facility] Comment on above: Order Comment: Name Collection Type:: Clean-Voided Midstream Performed By: #### L IPASE, CBC, CMP, HS TROP #### [facility] [address] Basic Metabolic Panelon Creatinine Clr Calc Pharmacy 59.83 Normal [facility] Comment on above: Performed By: #### L IPASE, CBC, CMP, HS TROP #### [facility] [address] GFR/1.73 sq M.predicted MDRD (S/P/Bld) [Vol rate/Area] mL/min/{1.73_m2} Normal [facility] Comment on above: Performed By: #### L IPASE, CBC, CMP, HS TROP #### [facility] [address] Bilirubin Test strip Ql (U)O rdered By: Rivera Lopez on 04-11-2023 Bilirubin Ql (U) Negative Negative [facility] Bilirubin.direct [Mass/volum e] in Serum or PlasmaOrdered By: Rivera Lopez on 04-11-2023 Bilirubin.direct [Mass/Vol] 0.00 mg/dL 0.03-0.18 [facility] Comment on above: If the DBIL is less than 0.1, IBIL is not able to becalculated. Bilirubin.total [Mass/volume ] in Serum or PlasmaOrdered By: Rivera Lopez on 04-11-2023 Bilirubin [Mass/Vol] 0.3 mg/dL Normal 0.3-1.0 [facility] Comment on above: Performed By: #### L IPASE, CBC, CMP, HS TROP #### [facility] [address] CBC AND AUTO DIFFon 04-11-19 ABSOLUTE BASOPHIL 0.1 X10E9/L Normal 0.0-0.2 [facility] Comment on above: Performed By: #### 1 9123-9, 3040-3, CBCA, CMP #### [facility] ([id number]) [address] [facility], [place] [address] ABSOLUTE NEUTROPHIL 12.5 X10E9/L High 1.5-6.6 [facility] Comment on above: Performed By: #### 1 9123-9, 3039-05, CBCA, CMP #### [facility] ([id number]) [address] [place] [address] Basophils/100 WBC (Bld) 0.4 % Normal [facility] Comment on above: Performed By: #### 1 919, 3039-05, CBCA, CMP #### [facility] ([id number]) [address] [place] [address] Eosinophils (Bld) [#/Vol] 0.1 10*3/uL Normal 0.0-0.4 [facility] Comment on above: Performed By: #### 1 91, 3039-05, CBCA, CMP #### [facility] ([id number]) [address] [place] [address]98 Eosinophils/100 WBC (Bld) 0.5 % Normal [facility] Comment on above: Performed By: #### 1 91, 3039-05, CBCA, CMP #### [facility] ([id number]) [address] [place] [address] Erythrocyte distribution width (RBC) [Ratio] 13.2 % Normal 11.5-15.0 [facility] Comment on above: Performed By: #### 1 9123-9, 3039-05, CBCA, CMP #### [facility] ([id number]) [address] [place] [address] Hematocrit (Bld) [Volume fraction] 44.6 % Normal 35-47 [facility] Comment on above: Performed By: #### 1 9123-9, 3, CBCA, CMP #### [facility] ([id number]) [address] [place] [address] Hemoglobin (Bld) [Mass/Vol] 15.2 g/dL Normal 11.7-15.5 [facility] Comment on above: Performed By: #### 1 9123-9, 3, CBCA, CMP #### [facility] ([id number]) [address] [place] [address] Lymphocytes (Bld) [#/Vol] 1.3 10*3/uL Normal 1.0-3.5 [facility] Comment on above: Performed By: #### 1 9122-11, 3039-05, CBCA, CMP #### [facility] ([id number]) [address] [place] [address] Lymphocytes/100 WBC (Bld) 8.7 % Normal [facility] Comment on above: Performed By: #### 1 9122-11, 3039-05, CBCA, CMP #### [facility] ([id number]) [address] [place] [address]41 MCH (RBC) [Entitic mass] 32.8 pg Normal 27-34 [facility] Comment on above: Performed By: #### 1 9122-11, 3039-05, CBCA, CMP #### [facility] ([id number]) [address] [place] [address]274 MCHC (RBC) [Mass/Vol] 34.1 g/dL Normal 32-36 [facility] Comment on above: Performed By: #### 1 91, 3, CBCA, CMP #### [facility] ([id number]) [address] [place] [address] 83498 MCV (RBC) [Entitic vol] 96 fL Normal 80-100 [facility] Comment on above: Performed By: #### 1 9122-11, 3, CBCA, CMP #### [facility] ([id number]) [address] [place] [address] 89358 Monocytes (Bld) [#/Vol] 0.7 10*3/uL Normal 0-0.9 [facility] Comment on above: Performed By: #### 1 9123-9, 3, CBCA, CMP #### [facility] ([id number]) [address] [place] [address]24 Monocytes/100 WBC (Bld) 4.5 % Normal [facility] Comment on above: Performed By: #### 1 91-9, 3039-05, CBCA, CMP #### [facility] ([id number]) [address] [place] [address] 90657 Neutrophils/100 WBC (Bld) 85.9 % Normal [facility] Comment on above: Performed By: #### 1 91-9, 3039-05, CBCA, CMP #### [facility] ([id number]) [address] [place] [address] 67591 Platelet mean volume (Bld) [Entitic vol] 7.5 fL Normal 7-12 [facility] Comment on above: Performed By: #### 1 9123-9, 3039-05, CBCA, CMP #### [facility] ([id number]) [address] [place] [address] Platelets (Bld) [#/Vol] 307 10*3/uL Normal 150-450 [facility] Comment on above: Performed By: #### 1 9123-9, 3039-05, CBCA, CMP #### [facility] ([id number]) [address] [place] [address] 09621 RBC COUNT 4.64 X10E12/L Normal 3.80-5.20 [facility] Comment on above: Performed By: #### 1 9123-9, 3039-, CBCA, CMP #### [facility] ([id number]) [address] [place] [address] 36882 WBC (Bld) [#/Vol] 14.5 10*3/uL High 4.0-11.0 [facility] Comment on above: Performed By: #### 1 9123-9, 3039-3, CBCA, CMP #### [facility] ([id number]) [address] [place] [address] 57910 COMPREHENSIVE METABOLIC PANE Nimesh 04-11-2023 Albumin [Mass/Vol] 4.7 g/dL Normal 3.2-5.3 [facility] Comment on above: Performed By: #### 1 9123-9, 3039-3, CBCA, CMP #### [facility] ([id number]) [address] [place] [address]50 ALP [Catalytic activity/Vol] 131 U/L High 39-130 [facility] Comment on above: Performed By: #### 1 9123-9, 3039-3, CBCA, CMP #### [facility] ([id number]) [address] [place] [address] 70849 ALT [Catalytic activity/Vol] 18 U/L Normal 0-31 [facility] Comment on above: Performed By: #### 1 9123-9, 3039-3, CBCA, CMP #### [facility] ([id number]) [address] [place] [address] 48877 Anion gap [Moles/Vol] 9 mmol/L Normal 5-15 [facility] Comment on above: Performed By: #### 1 9123-9, 3039-3, CBCA, CMP #### [facility] ([id number]) [address] [place] [address] 16863 AST [Catalytic activity/Vol] 23 U/L Normal 0-41 [facility] Comment on above: Performed By: #### 1 9123-9, 3039-3, CBCA, CMP #### [facility] ([id number]) [address] [place] [address] 11583 Bilirubin [Mass/Vol] 0.5 mg/dL Normal 0.3-1.2 [facility] Comment on above: Performed By: #### 1 9123-9, 304-3, CBCA, CMP #### [facility] ([id number]) [address] [place] [address] 78556 Calcium [Mass/Vol] 11.4 mg/dL High 8.5-10.5 [facility] Comment on above: Performed By: #### 1 9123-9, 3039-3, CBCA, CMP #### [facility] ([id number]) [address] [place] [address] 57687 Chloride [Moles/Vol] 99 mmol/L Normal 98-109 [facility] Comment on above: Performed By: #### 1 9123-9, 3, CBCA, CMP #### [facility] ([id number]) [address] [place] [address] 67934 CO2 [Moles/Vol] 28 mmol/L Normal 22-32 [facility] Comment on above: Performed By: #### 1 9123-9, 3039-3, CBCA, CMP #### [facility] ([id number]) [address] [place] [address] 46384 Creatinine [Mass/Vol] 0.95 mg/dL Normal 0.40-1.00 [facility] Comment on above: Result Comment: METH OD TRACEABLE TO IDMS STANDARD Performed By: #### 1 9123-9, 3039-3, CBCA, CMP #### [facility] ([id number]) [address] [place] [address] 29873 GFR/1.73 sq M.predicted among non-blacks MDRD (S/P/Bld) [Vol rate/Area] 72 mL/min/{1.73_m2} Normal >59 [facility] Comment on above: Result Comment: Reported eGFR is based on the CKD-EPI 2020 equation that does not use a race coefficient. Performed By: #### 1 9123-9, 3039-3, CBCA, CMP #### [facility] ([id number]) [address] [place] [address]409 Glucose [Mass/Vol] 126 mg/dL High 65-99 [facility] Comment on above: Performed By: #### 1 9123-9, 3, CBCA, CMP #### [facility] ([id number]) [address] [place] [address] 82082 Potassium [Moles/Vol] 3.2 mmol/L Low 3.5-5.0 [facility] Comment on above: Performed By: #### 1 9123-9, 3, CBCA, CMP #### [facility] ([id number]) [address] [place] [address] 74166 Protein [Mass/Vol] 7.5 g/dL Normal 6.0-8.0 [facility] Comment on above: Performed By: #### 1 9123-9, 3, CBCA, CMP #### [facility] ([id number]) [address] [place] [address] 62621 Sodium [Moles/Vol] 136 mmol/L Normal 134-146 [facility] Comment on above: Performed By: #### 1 9123-9, 3, CBCA, CMP #### [facility] ([id number]) [address] [place] [address] Urea nitrogen [Mass/Vol] 6 mg/dL Normal 5-23 [facility] Comment on above: Performed By: #### 1 9123-9, 3039-3, CBCA, CMP #### [facility] ([id number]) [address] [place] [id number] ABDOMEN AND PELVIS W CONT on [...] Gentile MD on 04/11/2023 6:05 PM Normal [facility] Calcium [Mass/volume] in Ser um or PlasmaOrdered By: Rivera Lopez on 04-11-2023 Calcium [Mass/Vol] 10.3 mg/dL Normal 8.6-10.3 [facility] Comment on above: Performed By: #### L IPASE, CBC, CMP, HS TROP #### [facility] [address] [phone] [place] Carbon dioxide, total [Moles /volume] in Serum or PlasmaOrdered By: Rivera Lopez on 04-11-2023 CO2 [Moles/Vol] 26.9 mmol/L Normal 21.0-31.0 [facility] Comment on above: Performed By: #### L IPASE, CBC, CMP, HS TROP #### [facility] [address] [place] [address] [place] Chloride [Moles/volume] in S erika or PlasmaOrdered By: Rivera Lopez on 04-11-2023 Chloride [Moles/Vol] 103 mmol/L Normal 98-107 [facility] Comment on above: Performed By: #### L IPASE, CBC, CMP, HS TROP #### [address] Complete Blood Count Auto Di ffon 04-11-2023 Mean Corpuscular HGB Conc 33.2 g/dL Normal 32.0-35.0 [facility] Comment on above: Performed By: #### L IPASE, CBC, CMP, HS TROP #### [address] Monocytes/100 WBC (Bld) 17.01 % Normal 0.00-20.00 [facility] Comment on above: Performed By: #### L IPASE, CBC, CMP, HS TROP #### [address] NRBC% 0.0 /100{WBC} Normal 0-0.5 [facility] Comment on above: Performed By: #### L IPASE, CBC, CMP, HS TROP #### [address] Creatinine [Mass/volume] in Serum or PlasmaOrdered By: Rivera Lopez on 04-11-2023 Creatinine [Mass/Vol] 0.86 mg/dL Normal 0.60-1.20 [facility] Comment on above: Performed By: #### L IPASE, CBC, CMP, HS TROP #### [address] Dipstick and Microscopicon 0 04-11-2023 Appearance (U) Turbid Critically abnormal Clear [facility] Comment on above: Order Comment: Name Collection Type:: Clean-Voided Midstream Performed By: #### L IPASE, CBC, CMP, HS TROP #### [address] Bacteria,Urine None Seen Normal None Seen [facility] Comment on above: Order Comment: Name Collection Type:: Clean-Voided Midstream Performed By: #### L IPASE, CBC, CMP, HS TROP #### [address] Bilirubin,Urine Negative Normal Negative [facility] Comment on above: Order Comment: Name Collection Type:: Clean-Voided Midstream Performed By: #### L IPASE, CBC, CMP, HS TROP #### [address] Glucose Ql (U) Normal Normal Normal [facility] Comment on above: Order Comment: Name Collection Type:: Clean-Voided Midstream Performed By: #### L IPASE, CBC, CMP, HS TROP #### [address] Hyaline Casts,Urine None Seen Normal 0-8 [facility] Comment on above: Order Comment: Name Collection Type:: Clean-Voided Midstream Result Comment: PERF ORMED BY: [place] [address] PATHOLOGIST IT DATA ARCHITECT PAULA RODRIGUES M.D. Performed By: #### L IPASE, CBC, CMP, HS TROP #### [address] Ketones Ql (U) Negative Normal Negative [facility] Comment on above: Order Comment: Name Collection Type:: Clean-Voided Midstream Performed By: #### L IPASE, CBC, CMP, HS TROP #### [address] Leukocyte esterase Test strip Ql (U) Negative Normal Negative [facility] Comment on above: Order Comment: Name Collection Type:: Clean-Voided Midstream Performed By: #### L IPASE, CBC, CMP, HS TROP #### [place] [address] [place] Nitrite,Urine Negative Normal Negative [facility] Comment on above: Order Comment: Name Collection Type:: Clean-Voided Midstream Performed By: #### L IPASE, CBC, CMP, HS TROP #### [address] Occult Blood,Urine Negative Normal Negative [facility] Comment on above: Order Comment: Name Collection Type:: Clean-Voided Midstream Result Comment: PERF ORMED BY: [place] [address] PATHOLOGIST IT DATA ARCHITECT PAULA RODRIGUES M.D. Performed By: #### L IPASE, CBC, CMP, HS TROP #### [address] Protein,Urine Negative Normal Negative [facility] Comment on above: Order Comment: Name Collection Type:: Clean-Voided Midstream Performed By: #### L IPASE, CBC, CMP, HS TROP #### [address] RBC LM.HPF (Urine sed) [#/Area] 0 /[HPF] Normal 0-4 [facility] Comment on above: Order Comment: Name Collection Type:: Clean-Voided Midstream Performed By: #### L IPASE, CBC, CMP, HS TROP #### [address] Specificy Nitro,Urine > 1.050 High 1.001-1.03 0 [facility] Comment on above: Order Comment: Name Collection Type:: Clean-Voided Midstream Performed By: #### L IPASE, CBC, CMP, HS TROP #### [address] Squamous Epithelial Cell,Urine 0-1 Normal 0-2 [facility] Comment on above: Order Comment: Name Collection Type:: Clean-Voided Midstream Performed By: #### L IPASE, CBC, CMP, HS TROP #### [address] Urobilinogen,Urine Normal Normal Normal [facility] Comment on above: Order Comment: Name Collection Type:: Clean-Voided Midstream Performed By: #### L IPASE, CBC, CMP, HS TROP #### [place] [address] [place] WBC,Urine 3-4 Normal 0-4 [facility] Comment on above: Order Comment: Name Collection Type:: Clean-Voided Midstream Performed By: #### L IPASE, CBC, CMP, HS TROP #### [facility] [address] ECG 12 lead ECGon 04-11-2023 ECG 12 lead ECG [facility] [place] [address] [place] [address] Electrocardiograph Report Signed Patient: Chioma Arciniega MR#: [id number] : 1970 Acct:[id number] Age/Sex: 52 / F ADM Date: 04/11/23 [...] was found Confirmed by Rivera Lopez DO ([id number]) on 04/12/2023 12:05:50 AM Referred By: Electronically Signed By:Rivera Lopez DO Transcribed By: MUS Signed By Rivera Lopez DO 4 0005 Normal [facility] Erythrocyte distribution wid th [Ratio] by Automated countOrdered By: Rivera Lopez on 04-11-2023 Erythrocyte distribution width (RBC) [Ratio] 13.6 % Normal 11.9-15.3 [facility] Comment on above: Performed By: #### L IPASE, CBC, CMP, HS TROP #### [facility] [address] Erythrocytes [#/volume] in B lood by Automated countOrdered By: Rivera Lopez on 04-11-2023 RBC (Bld) [#/Vol] 4.27 10*6/uL Normal 3.60-5.00 [facility] Comment on above: Performed By: #### L IPASE, CBC, CMP, HS TROP #### [facility] [address] [place] [address] [place] Glucose [Mass/volume] in Ser um or PlasmaOrdered By: Rivera Lopez on 04-11-2023 Glucose [Mass/Vol] 121 mg/dL High 70-100 [facility] Comment on above: ADA recommended refe rence rangeRandom Glucose Reference Range is dependent on time and content of last meal. Glucose of more than 200 mg/dL in a nonstressed, ambulatory subject supports the diagnosis of Diabetes Mellitus. Result Comment: [place] om Glucose Reference Range is dependent on time and content of last meal. Glucose of more than 200 mg/dL in a nonstressed, ambulatory subject supports the diagnosis of Diabetes Mellitus. ADA recommended reference range Performed By: #### L IPASE, CBC, CMP, HS TROP #### [facility] [address] Hematocrit [Volume Fraction] of Blood by Automated countOrdered By: Rivera Lopez on 04-11-2023 Hematocrit (Bld) [Volume fraction] 41.3 % Normal 34.0-46.4 [facility] Comment on above: Performed By: #### L IPASE, CBC, CMP, HS TROP #### [facility] [address] [id number] [facility] Hemoglobin [Mass/volume] in BloodOrdered By: Rivera Lopez on 04-11-2023 Hemoglobin (Bld) [Mass/Vol] 13.7 g/dL Normal 11.8-15.4 [facility] Comment on above: Performed By: #### L IPASE, CBC, CMP, HS TROP #### [facility] [address] [place] [address] [place] Hepatic Panelon 04-11-2023 Albumin [Mass/Vol] 4.5 g/dL Normal 3.5-5.7 [facility] Comment on above: Performed By: #### L IPASE, CBC, CMP, HS TROP #### [facility] [address] [phone] [place] Bilirubin,Indirect 0.3 mg/dL Normal [facility] Comment on above: Performed By: #### L IPASE, CBC, CMP, HS TROP #### [facility] [address] Bilirubin.indirect [Mass/Vol] 0.00 mg/dL Low 0.03-0.18 [facility] Comment on above: Result Comment: If t he DBIL is less than 0.1, IBIL is not able to be calculated. Performed By: #### L IPASE, CBC, CMP, HS TROP #### [facility] [address] INR in Platelet poor plasma by Coagulation assayOrdered By: Rivera Lopez on 04-11-2023 INR Coag (PPP) [Relative time] 1.0 {INR} Normal [facility] Comment on above: INR Therapeutic Rang [...] CBC, CMP, HS TROP #### [facility] [address] [phone] [facility] Ketones Auto test strip (U) [Mass/Vol]Ordered By: Rivera Lopez on 04-11-2023 Ketones (U) [Mass/Vol] Negative Negative [facility] LIPASEon 04-11-2023 Lipase [Catalytic activity/Vol] 49 U/L High 17-40 [facility] Comment on above: Performed By: #### 1 9123-9, 3040-3, CBCA, CMP #### [facility] ([id number]) [address] [facility] [place] [address] Laboratory - UrinalysisOrder ed By: Rivera Lopez on 04-11-2023 Hyaline casts LM Ql (Urine sed) None seen [LPF] 0-8 [facility] Leukocytes [#/volume] correc aurelia for nucleated erythrocytes in Blood by Automated counOrdered By: Rivera Lopez on 04-11-2023 WBC corrected for nucl RBC Auto (Bld) [#/Vol] 13.9 10*3/uL 3.8-11.6 [facility] Leukocytes [#/volume] in Blo od by Automated countOrdered By: Rivera Lopez on 04-11-2023 WBC (Bld) [#/Vol] 13.9 10*3/uL High 3.8-11.6 [facility] Comment on above: Performed By: #### L IPASE, CBC, CMP, HS TROP #### [facility] [address] [place] [address] [place] Lipase [Enzymatic activity/v olume] in Serum or PlasmaOrdered By: Rivera Lopez on 04-11-2023 Lipase [Catalytic activity/Vol] 26.0 U/L Normal 11.0-82.0 [facility] Comment on above: Result Comment: PERF ORMED BY: [place] [address] PATHOLOGIST IT DATA ARCHITECT PAULA RODRIGUES M.D. Performed By: #### L IPASE, CBC, CMP, HS TROP #### [facility] [address] [place] [address] [place] Lymphocytes [#/volume] in Bl ood by Automated countOrdered By: Rivera Lopez on 04-11-2023 Lymphocytes (Bld) [#/Vol] 1.1 10*3/uL Normal 1.00-4.8 [facility] Comment on above: Performed By: #### L IPASE, CBC, CMP, HS TROP #### [facility] [address] [place], [place] [id number] [place] Lymphocytes/100 leukocytes i n Blood by Automated countOrdered By: Rivera Lopez on 04-11-2023 Lymphocytes/100 WBC (Bld) 8.1 % Normal . [facility] Comment on above: Performed By: #### L IPASE, CBC, CMP, HS TROP #### [facility] [address] [place] [address] [place] MAGNESIUMon 04-11-2023 Magnesium [Mass/Vol] 2.0 mg/dL Normal 1.8-2.6 [facility] Comment on above: Performed By: #### C BCA, 3040-3, CMP, 31458-8, 64668-4, 12622- 1 #### [facility] ([id number]) [address] [place] [address], [place] [address] MCH [Entitic mass] by Automa aurelia countOrdered By: Rivera Lopez on 04-11-2023 MCH (RBC) [Entitic mass] 32.2 pg Normal 24.7-34.3 [facility] Comment on above: Performed By: #### L IPASE, CBC, CMP, HS TROP #### [facility] [address] MCHC Auto (RBC) [Mass/Vol]Or dered By: Rivera Lopez on 04-11-2023 MCHC (RBC) [Mass/Vol] 33.2 g/dL 32.0-35.0 [facility] MCV [Entitic volume] by Auto mated countOrdered By: Rivera Lopez on 04-11-2023 MCV (RBC) [Entitic vol] 96.8 fL Normal 80-100 [facility] Comment on above: Performed By: #### L IPASE, CBC, CMP, HS TROP #### [facility] [address] [place] [address] [place] Monocyte distribution width [Entitic volume] in Blood by AutomatedOrdered By: Rivera Lopez on 04-11-2023 Monocyte distribution width Auto (Bld) [Entitic vol] 17.01 % 0.00-20.00 [facility] Neutrophils [#/volume] in Bl ood by Automated countOrdered By: Rivera Lopez on 04-11-2023 Neutrophils (Bld) [#/Vol] 12.1 10*3/uL High 1.8-7.7 [facility] Comment on above: Performed By: #### L IPASE, CBC, CMP, HS TROP #### [facility] [address] [place] [address] Nitrite Test strip Ql (U)Ord ered By: Rivera Lopez on 04-11-2023 Nitrite Ql (U) Negative Negative [facility] No Panel InformationOrdered By: Rivera Lopez on 04-11-2023 Estimated GFR (CKD-EPI) > 60.0 mL/Min [facility] Creatinine Clearance (Chem 59.83 [facility] Nucleated erythrocytes [Pres ence] in Blood by Automated countOrdered By: Rivera Lopez on 04-11-2023 Nucleated RBC Auto Ql (Bld) 0.0 /100{WBC} 0-0.5 [facility] Partial Thromboplastin Timeo n 04-11-2023 aPTT Coag (Bld) [Time] 23.3 s Low 25.1-36.5 Th e [facility] Comment on above: Result Comment: A he matocrit value greater than 55% may lead to inaccurate results in coagulation testing. Patients having hematocrit values >55% require a special collection tube for coagulation studies. Please contact the laboratory at [phone] for redraw instructions. PERFORMED BY: [place] [address] PATHOLOGIST IT DATA ARCHITECT PAULA RODRIGUES M.D. Performed By: #### L IPASE, CBC, CMP, HS TROP #### [facility] [address] [place] [address] [place] Platelet mean volume [Entiti c volume] in Blood by Automated countOrdered By: Rivera Lopez on 04-11-2023 Platelet mean volume (Bld) [Entitic vol] 7.7 fL Normal 6.3-10.7 [facility] Comment on above: Performed By: #### L IPASE, CBC, CMP, HS TROP #### [facility] [address] [place] [address] [place] Platelets [#/volume] in Bloo d by Automated countOrdered By: Rivera Lopez on 04-11-2023 Platelets (Bld) [#/Vol] 262 10*3/uL Normal 150-450 [facility] Comment on above: Performed By: #### L IPASE, CBC, CMP, HS TROP #### [address] Potassium [Moles/volume] in Serum or PlasmaOrdered By: Rivera Lopez on 04-11-2023 Potassium [Moles/Vol] 4.0 mmol/L Normal 3.5-5.1 [facility] Comment on above: Performed By: #### L IPASE, CBC, CMP, HS TROP #### [address] Protein Auto test strip (U) [Mass/Vol]Ordered By: Rivera Lopez on 04-11-2023 Protein (U) [Mass/Vol] Negative Negative [facility] Protein [Mass/volume] in Ser um or PlasmaOrdered By: Rivera Lopez on 04-11-2023 Protein [Mass/Vol] 6.9 g/dL Normal 6.4-8.9 [facility] Comment on above: Performed By: #### L IPASE, CBC, CMP, HS TROP #### [address] Prothrombin time (PT)Ordered By: Rivera Lopez on 04-11-2023 PT Coag (PPP) [Time] 11.2 s Normal 9.0-12.9 [facility] Comment on above: A hematocrit value g reater than 55% may lead to inaccurate results in coagulation testing. Patients having hematocrit values >55% require a special collection tube for coagulation studies. Please contact the laboratory at [phone] for redraw instructions. Result Comment: A he matocrit value greater than 55% may lead to inaccurate results in coagulation testing. Patients having hematocrit values >55% require a special collection tube for coagulation studies. Please contact the laboratory at [phone] for redraw instructions. Performed By: #### L IPASE, CBC, CMP, HS TROP #### [address] [place] [address] [place] Serum globulin measurement b y calculation (mass/volume)Ordered By: Rivera Lopez on 04-11-2023 Globulin (S) [Mass/Vol] 2.4 g/dL [facility] Comment on above: Performed By: #### L IPASE, CBC, CMP, HS TROP #### [address] Serum or plasma albumin/glob ulin mass ratioOrdered By: Rivera Lopez on 04-11-2023 Albumin/Globulin [Mass ratio] 1.9 {ratio} [facility] Comment on above: Performed By: #### L IPASE, CBC, CMP, HS TROP #### [address] Serum or plasma anion gap de terminationOrdered By: Rivera Lopez on 04-11-2023 Anion gap [Moles/Vol] 14.1 mmol/L Normal 6.0-15.0 [facility] Comment on above: Performed By: #### L IPASE, CBC, CMP, HS TROP #### [address] Serum or plasma non-glucuron idated bilirubin measurement (mass/volume)Ordered By: Rivera Lopez on 04-11-2023 Bilirubin.indirect [Mass/Vol] 0.3 mg/dL [facility] Sodium [Moles/volume] in Ser um or PlasmaOrdered By: Rivera Lopez on 04-11-2023 Sodium [Moles/Vol] 140 mmol/L Normal 136-145 [facility] Comment on above: Performed By: #### L IPASE, CBC, CMP, HS TROP #### [address] Specific gravity Auto test s trip (U) [Rel density]Ordered By: Rivera Lopez on 04-11-2023 Specific gravity (U) [Rel density] > 1.050 1.001-1.03 0 [facility] Squamous epithelial cells de tection in urine sediment by light microscopyOrdered By: Rivera Lopez on 04-11-2023 Epithelial cells.squamous LM Ql (Urine sed) 0-1 [HPF] 0-2 [facility] URN MACROSCOPIC NURon 2023 BILIRUBIN JERE Negative Normal NEG [facility] Comment on above: Performed By: #### C BCA, 3040-3, CMP, 50542-8, 35651-7, 89579- 1 #### [facility] ([id number]) [address] [place] [address] BLOOD/HGB JERE Negative Normal NEG [facility] Comment on above: Performed By: #### C BCA, 3040-3, CMP, 88160-2, 15841-7, 27130- 1 #### [facility] ([id number]) [address] [place] [address] GLUCOSE JERE Negative Normal [facility] Comment on above: Performed By: #### C BCA, 3040-3, CMP, 79536-6, 45478-1, 61393- 1 #### [facility] ([id number]) [address] [place] [address] KETONES JERE Negative Normal [facility] Comment on above: Performed By: #### C BCA, 3040-3, CMP, 32040-2, 64391-3, 95680- 1 #### [facility] ([id number]) [address] [place] [address]19 LEUKOCYTE ESTERASE JERE Negative Normal NEG [facility] Comment on above: Performed By: #### C BCA, 3040-3, CMP, 22650-3, 83882-5, 44218- 1 #### [facility] ([id number]) [address] [place] [address]161 NITRITE JERE Negative Normal NEG [facility] Comment on above: Performed By: #### C BCA, 3040-3, CMP, 91954-6, 94517-3, 97547- 1 #### [facility] ([id number]) [address] [place] [address] PH JERE >=9.0 Normal 5.0-8.5 [facility] Comment on above: Performed By: #### C BCA, 3040-3, CMP, 40527-7, 26239-4, 83704- 1 #### [facility] ([id number]) [address] [place] [address] PROTEIN JERE Negative Normal NEG [facility] Comment on above: Performed By: #### C BCA, 3040-3, CMP, 56569-9, 64061-4, 51063- 1 #### [facility] ([id number]) [address] [place] [address] SPECIFIC GRAVITY JERE 1.015 Normal 1.003-1 .03 5 [facility] Comment on above: Performed By: #### C BCA, 3040-3, CMP, 78710-6, 32778-1, 33049- 1 #### [facility] ([id number]) [address] [place] [address] UROBILINOGEN JERE 0.2 eu/dL Normal <1.1 [facility] Comment on above: Performed By: #### C BCA, 3040-3, CMP, 06869-5, 70774-8, 24271- 1 #### [facility] ([id number]) [address] [place] [address] Urea nitrogen [Mass/volume] in Serum or PlasmaOrdered By: Rivera Lopez on 04-11-2023 Urea nitrogen [Mass/Vol] 5 mg/dL Low 7-25 [facility] Comment on above: Performed By: #### L IPASE, CBC, CMP, HS TROP #### [facility] [address] [phone] [facility] Urine bacteria detection by automated methodOrdered By: Rivera Lopez on 04-11-2023 Bacteria Auto Ql (U) None seen None Seen [facility] Urine clarity by refractomet ry automatedOrdered By: Rivera Lopez on 04-11-2023 Clarity Refractometry automated (U) Turbid Clear [facility] Urine glucose measurement by automated test strip (mass/volume)Ordered By: Rivera Lopez on 04-11-2023 Glucose Auto test strip (U) [Mass/Vol] Normal mg/dL Normal [facility] Urine hemoglobin detection b y automated test stripOrdered By: Rivera Lopez on 04-11-2023 Hemoglobin Auto test strip Ql (U) Negative Negative [facility] Urine leukocyte esterase det ection by automated test stripOrdered By: Rivera Lopez on 04-11-2023 Leukocyte esterase Auto test strip Ql (U) Negative Negative [facility] Urine pH measurement by auto mated test stripOrdered By: Rivera Lopez on 04-11-2023 pH (U) 8.0 [pH] Normal 5.0-9.0 [facility] Comment on above: Order Comment: Name Collection Type:: Clean-Voided Midstream Performed By: #### L IPASE, CBC, CMP, HS TROP #### [facility] [address] [place] [address] [place] Urobilinogen Auto test strip (U) [Mass/Vol]Ordered By: Rivera Lopez on 04-11-2023 Urobilinogen (U) [Mass/Vol] Normal mg/dL Normal [facility] Alanine aminotransferase [En zymatic activity/volume] in Serum or PlasmaOrdered By: Nicole Posadas on 04-02-2023 ALT [Catalytic activity/Vol] 11 U/L Normal 7-52 [facility] Comment on above: Performed By: #### L IPASE, CBC, CMP, HS TROP #### [facility] [address] [place] [address] [place] Albumin [Mass/volume] in Ser um or Plasma by Bromocresol green (BCG) dye binding methoOrdered By: Nicole Posadas on 04-02-2023 Albumin BCG dye [Mass/Vol] 4.2 g/dL 3.5-5.7 [facility] Alkaline phosphatase [Enzyma tic activity/volume] in Serum or PlasmaOrdered By: Nicole Posadas on 04-02-2023 ALP [Catalytic activity/Vol] 101 U/L Normal 34-104 [facility] Comment on above: Performed By: #### L IPASE, CBC, CMP, HS TROP #### [facility] [address] [place] [address] Aspartate aminotransferase [ Enzymatic activity/volume] in Serum or PlasmaOrdered By: Nicole Littlee on 04-02-2023 AST [Catalytic activity/Vol] 21 U/L Normal 13-39 [facility] Comment on above: Performed By: #### L IPASE, CBC, CMP, HS TROP #### [facility] [address] [place] [address] Automated basophil %Ordered By: Nicole Posadas on 04-02-2023 Basophils/100 WBC (Bld) 0.2 % Normal . [facility] Comment on above: Performed By: #### L IPASE, CBC, CMP, HS TROP #### [facility] [address] [place] [address] Automated basophil countOrde red By: Niocle Posadas on 04-02-2023 Basophils (Bld) [#/Vol] 0.0 10*3/uL Normal 0.0-0.2 [facility] Comment on above: Result Comment: PERF ORMED BY: [place] [address] PATHOLOGIST IT DATA ARCHITECT PAULA RODRIGUES M.D. Performed By: #### L IPASE, CBC, CMP, HS TROP #### [facility] [address] [place] [address] Automated blood monocyte cou ntOrdered By: Nicole Jjdeannee on 04-02-2023 Monocytes (Bld) [#/Vol] 0.6 10*3/uL Normal 0.0-0.8 [facility] Comment on above: Performed By: #### L IPASE, CBC, CMP, HS TROP #### [address] Automated eosinophil %Ordere d By: Nicole Posadas on 04-02-2023 Eosinophils/100 WBC (Bld) 1.7 % Normal . [facility] Comment on above: Performed By: #### L IPASE, CBC, CMP, HS TROP #### [facility] [address] [place] [address] Automated eosinophil countOr dered By: Nicole Posadas on 04-02-2023 Eosinophils (Bld) [#/Vol] 0.1 10*3/uL Normal 0.0-0.45 [facility] Comment on above: Performed By: #### L IPASE, CBC, CMP, HS TROP #### [address] Automated monocyte %Ordered By: Nicole Posadas on 04-02-2023 Monocytes/100 WBC (Bld) 9.8 % Normal . [facility] Comment on above: Performed By: #### L IPASE, CBC, CMP, HS TROP #### [address] Street Automated neutrophil %Ordere d By: Nicole Posadas on 04-02-2023 Neutrophils/100 WBC (Bld) 59.1 % Normal . [facility] Comment on above: Performed By: #### L IPASE, CBC, CMP, HS TROP #### [address] Automated urine color determ inationOrdered By: Nicole Posadas on 04-02-2023 Color (U) Yellow Normal Yellow [facility] Comment on above: Order Comment: Name Collection Type:: Clean-Voided Midstream Performed By: #### U A #### [address] Bilirubin Test strip Ql (U)O rdered By: Nicole Posadas on 04-02-2023 Bilirubin Ql (U) Negative Negative [facility] Bilirubin.total [Mass/volume ] in Serum or PlasmaOrdered By: Nicole Posadas on 04-02-2023 Bilirubin [Mass/Vol] 0.3 mg/dL Normal 0.3-1.0 [facility] Comment on above: Performed By: #### L IPASE, CBC, CMP, HS TROP #### [address] [place] [address] [facility] CT abdomen pelvis w conon CT abdomen pelvis w con [facility] Main [place] [address] [place] [address] CT Scan Report Signed Patient: Chioma Arciniega MR#: [id number] : 1970 Acct:[id number] Age/Sex: 52 / F ADM Date: 04/02/23 [...] Paredes Jr., D.OGopal04/02/2023 6:15 PM Dictation Location: [place] [address] Transcribed By: RICA 04/02/231814 Dictated By: Eyal Paredes Jr, DO 04/02/231808 Signed By: 04/02/231814 Normal [facility] Calcium [Mass/volume] in Ser um or PlasmaOrdered By: Nicole Posadas on 04-02-2023 Calcium [Mass/Vol] 9.7 mg/dL Normal 8.6-10.3 [facility] Comment on above: Performed By: #### L IPASE, CBC, CMP, HS TROP #### [address] Carbon dioxide, total [Moles /volume] in Serum or PlasmaOrdered By: Nicole Posadas on 04-02-2023 CO2 [Moles/Vol] 26.3 mmol/L Normal 21.0-31.0 [facility] Comment on above: Performed By: #### L IPASE, CBC, CMP, HS TROP #### [facility] [address] [place] [address] Chloride [Moles/volume] in S erika or PlasmaOrdered By: Nicole Posadas on 04-02-2023 Chloride [Moles/Vol] 106 mmol/L Normal 98-107 [facility] Comment on above: Performed By: #### L IPASE, CBC, CMP, HS TROP #### [facility] [address] [place] [address] Complete Blood Count Auto Di ffon 04-02-2023 Mean Corpuscular HGB Conc 34.0 g/dL Normal 32.0-35.0 [facility] Comment on above: Performed By: #### L IPASE, CBC, CMP, HS TROP #### [facility] [address] [place] [address] [place] Monocytes/100 WBC (Bld) 17.36 % Normal 0.00-20.00 [facility] Comment on above: Performed By: #### L IPASE, CBC, CMP, HS TROP #### [facility] [address] [place] [address] [place] NRBC% 0.1 /100{WBC} Normal 0-0.5 [facility] Comment on above: Performed By: #### L IPASE, CBC, CMP, HS TROP #### [address] Comprehensive Metabolic Pane nimesh 04-02-2023 Albumin [Mass/Vol] 4.2 g/dL Normal 3.5-5.7 [facility] Comment on above: Performed By: #### L IPASE, CBC, CMP, HS TROP #### [address] Anion gap [Moles/Vol] Not performed Normal 6.0-15.0 [facility] Comment on above: Performed By: #### L IPASE, CBC, CMP, HS TROP #### [address] Creatinine Clr Calc Pharmacy 62.75 Normal [facility] Comment on above: Performed By: #### L IPASE, CBC, CMP, HS TROP #### [address] GFR/1.73 sq M.predicted MDRD (S/P/Bld) [Vol rate/Area] mL/min/{1.73_m2} Normal [facility] Comment on above: Performed By: #### L IPASE, CBC, CMP, HS TROP #### [address] Potassium Normal 3.5-5.1 [facility] Comment on above: Result Comment: Spec imen hemolyzed, redraw requested Performed By: #### L IPASE, CBC, CMP, HS TROP #### [address] Creatinine [Mass/volume] in Serum or PlasmaOrdered By: Nicole Posadas on 04-02-2023 Creatinine [Mass/Vol] 0.82 mg/dL Normal 0.60-1.20 [facility] Comment on above: Performed By: #### L IPASE, CBC, CMP, HS TROP #### [address] D-Dimer High Sensitivityon 0 04-02-2023 D-Dimer High Sensitivity < 200 Normal 0-243 [facility] Comment on above: Result [...] coagulation studies. Please contact the laboratory at [phone] for redraw instructions. PERFORMED BY: [place] [address] PATHOLOGIST IT DATA ARCHITECT PAULA RODRIGUES M.D. Performed By: #### L IPASE, CBC, CMP, HS TROP #### [address] ECG 12 lead ECGon 04-02-2023 ECG 12 lead ECG [facility] Main [place] [id number] Electrocardiograph Report Signed Patient: Chioma Arciniega MR#: [id number] : 1970 Acct:[id number] Age/Sex: 52 / F ADM Date: 04/02/23 [...] Xiang Kellogg MD 04/02/23 1527 Normal [facility] Erythrocyte distribution wid th [Ratio] by Automated countOrdered By: Nicolecarito Posadas on 04-02-2023 Erythrocyte distribution width (RBC) [Ratio] 13.3 % Normal 11.9-15.3 [facility] Comment on above: Performed By: #### L IPASE, CBC, CMP, HS TROP #### [facility] [address] Erythrocytes [#/volume] in B lood by Automated countOrdered By: Nicole Posadas on 04-02-2023 RBC (Bld) [#/Vol] 4.29 10*6/uL Normal 3.60-5.00 [facility] Comment on above: Performed By: #### L IPASE, CBC, CMP, HS TROP #### [facility] [address] Fibrin D-dimer [Presence] in Platelet poor plasma by Latex agglutinationOrdered By: Nicole Posadas on 04-02-2023 Fibrin D-dimer LA Ql (PPP) < 200 ng/mL 0-243 [facility] Comment on above: The reference range [...] coagulation studies. Please contact the laboratory at [phone] for redraw instructions. Glucose [Mass/volume] in Ser um or PlasmaOrdered By: Nicole Posadas on 04-02-2023 Glucose [Mass/Vol] 90 mg/dL Normal 70-100 [facility] Comment on above: ADA recommended refe rence rangeRandom Glucose Reference Range is dependent on time and content of last meal. Glucose of more than 200 mg/dL in a nonstressed, ambulatory subject supports the diagnosis of Diabetes Mellitus. Result Comment: [place] om Glucose Reference Range is dependent on time and content of last meal. Glucose of more than 200 mg/dL in a nonstressed, ambulatory subject supports the diagnosis of Diabetes Mellitus. ADA recommended reference range Performed By: #### L IPASE, CBC, CMP, HS TROP #### [facility] [address] Hematocrit [Volume Fraction] of Blood by Automated countOrdered By: Nicole Posadas on 04-02-2023 Hematocrit (Bld) [Volume fraction] 41.8 % Normal 34.0-46.4 [facility] Comment on above: Performed By: #### L IPASE, CBC, CMP, HS TROP #### [facility] [address] [place] [address] [place] Hemoglobin [Mass/volume] in BloodOrdered By: Nicole Posadas on 04-02-2023 Hemoglobin (Bld) [Mass/Vol] 14.2 g/dL Normal 11.8-15.4 [facility] Comment on above: Performed By: #### L IPASE, CBC, CMP, HS TROP #### [facility] [address] Ketones Auto test strip (U) [Mass/Vol]Ordered By: Nicole Posadas on 04-02-2023 Ketones (U) [Mass/Vol] Negative Negative [facility] Leukocytes [#/volume] correc aurelia for nucleated erythrocytes in Blood by Automated counOrdered By: Nicole Posadas on 04-02-2023 WBC corrected for nucl RBC Auto (Bld) [#/Vol] 6.2 10*3/uL 3.8-11.6 [facility] Leukocytes [#/volume] in Blo od by Automated countOrdered By: Nicole Posadas on 04-02-2023 WBC (Bld) [#/Vol] 6.2 10*3/uL Normal 3.8-11.6 [facility] Comment on above: Performed By: #### L IPASE, CBC, CMP, HS TROP #### [address] Lipase [Enzymatic activity/v olume] in Serum or PlasmaOrdered By: Nicole Posadas on 04-02-2023 Lipase [Catalytic activity/Vol] 186.0 U/L High 11.0-82.0 [facility] Comment on above: Result Comment: PERF ORMED BY: [place] [address] PATHOLOGIST IT DATA ARCHITECT PAULA RODRIGUES M.D. Performed By: #### L IPASE, CBC, CMP, HS TROP #### [place] [address] [place] Lymphocytes [#/volume] in Bl ood by Automated countOrdered By: Nicole Posadas on 04-02-2023 Lymphocytes (Bld) [#/Vol] 1.8 10*3/uL Normal 1.00-4.8 [facility] Comment on above: Performed By: #### L IPASE, CBC, CMP, HS TROP #### [place] [address] [place] Lymphocytes/100 leukocytes i n Blood by Automated countOrdered By: Nicole Posadas on 04-02-2023 Lymphocytes/100 WBC (Bld) 29.2 % Normal . [facility] Comment on above: Performed By: #### L IPASE, CBC, CMP, HS TROP #### [place] [address] [place] MCH [Entitic mass] by Automa aurelia countOrdered By: Nicole Posadas on 04-02-2023 MCH (RBC) [Entitic mass] 33.1 pg Normal 24.7-34.3 [facility] Comment on above: Performed By: #### L IPASE, CBC, CMP, HS TROP #### [address] [place] [address] [place] MCHC Auto (RBC) [Mass/Vol]Or dered By: Nicole Posadas on 04-02-2023 MCHC (RBC) [Mass/Vol] 34.0 g/dL 32.0-35.0 [facility] MCV [Entitic volume] by Auto mated countOrdered By: Nicole Posadas on 04-02-2023 MCV (RBC) [Entitic vol] 97.4 fL Normal 80-100 [facility] Comment on above: Performed By: #### L IPASE, CBC, CMP, HS TROP #### [facility] [address] [place] [address] [place] Monocyte distribution width [Entitic volume] in Blood by AutomatedOrdered By: Nicole Posadas on 04-02-2023 Monocyte distribution width Auto (Bld) [Entitic vol] 17.36 % 0.00-20.00 [facility] Neutrophils [#/volume] in Bl ood by Automated countOrdered By: Nicole Posadas on 04-02-2023 Neutrophils (Bld) [#/Vol] 3.6 10*3/uL Normal 1.8-7.7 [facility] Comment on above: Performed By: #### L IPASE, CBC, CMP, HS TROP #### [facility] [address] Nitrite Test strip Ql (U)Ord ered By: Nicole Posadas on 04-02-2023 Nitrite Ql (U) Negative Negative [facility] No Panel InformationOrdered By: Nicole Posadas on 04-02-2023 Estimated GFR (CKD-EPI) > 60.0 mL/Min [facility] Creatinine Clearance (Chem 62.75 [facility] Nucleated erythrocytes [Pres ence] in Blood by Automated countOrdered By: Nicole Posadas on 04-02-2023 Nucleated RBC Auto Ql (Bld) 0.1 /100{WBC} 0-0.5 [facility] Platelet mean volume [Entiti c volume] in Blood by Automated countOrdered By: Nicole Posadas on 04-02-2023 Platelet mean volume (Bld) [Entitic vol] 8.3 fL Normal 6.3-10.7 [facility] Comment on above: Performed By: #### L IPASE, CBC, CMP, HS TROP #### [address] Platelets [#/volume] in Bloo d by Automated countOrdered By: Nicole Posadas on 04-02-2023 Platelets (Bld) [#/Vol] 236 10*3/uL Normal 150-450 [facility] Comment on above: Performed By: #### L IPASE, CBC, CMP, HS TROP #### [address] Potassium [Moles/volume] in Serum or PlasmaOrdered By: Nicole Posadas on 04-02-2023 Potassium [Moles/Vol] 4.3 mmol/L Normal 3.5-5.1 [facility] Comment on above: Result Comment: PERF ORMED BY: [place] [address] PATHOLOGIST IT DATA ARCHITECT PAULA RODRIGUES M.D. Performed By: #### R EDRAW K #### [address] Protein Auto test strip (U) [Mass/Vol]Ordered By: Nicole Posadas on 04-02-2023 Protein (U) [Mass/Vol] Negative Negative [facility] Protein [Mass/volume] in Ser um or PlasmaOrdered By: Nicole Posadas on 04-02-2023 Protein [Mass/Vol] 6.6 g/dL Normal 6.4-8.9 [facility] Comment on above: Performed By: #### L IPASE, CBC, CMP, HS TROP #### [address] Serum globulin measurement b y calculation (mass/volume)Ordered By: Nicole Posadas on 04-02-2023 Globulin (S) [Mass/Vol] 2.4 g/dL Normal [facility] Comment on above: Performed By: #### L IPASE, CBC, CMP, HS TROP #### [facility] [address] Serum or plasma albumin/glob ulin mass ratioOrdered By: Nicole Posadas on 04-02-2023 Albumin/Globulin [Mass ratio] 1.8 {ratio} Normal [facility] Comment on above: Performed By: #### L IPASE, CBC, CMP, HS TROP #### [facility] [address] [place] [address] Serum or plasma anion gap de terminationOrdered By: Nicole Posadas on 04-02-2023 Anion gap [Moles/Vol] TNP [facility] Comment on above: Test not performed Sodium [Moles/volume] in Ser um or PlasmaOrdered By: Nicole Posadas on 04-02-2023 Sodium [Moles/Vol] 137 mmol/L Normal 136-145 [facility] Comment on above: Performed By: #### L IPASE, CBC, CMP, HS TROP #### [address] Specific gravity Auto test s trip (U) [Rel density]Ordered By: Nicole Posadas on 04-02-2023 Specific gravity (U) [Rel density] 1.022 1.001-1.03 0 [facility] Troponin I High Sensitivityo n 04-02-2023 Troponin I High Sensitivity 2.6 pg/mL Normal 0.0-15.0 [facility] Comment on above: Result Comment: PERF ORMED BY: [address] [place] [address] PATHOLOGIST IT DATA ARCHITECT PAULA RODRIGUES M.D. Performed By: #### L IPASE, CBC, CMP, HS TROP #### [facility] [address] [place] [address] Troponin I.cardiac [Mass/vol ume] in Serum or Plasma by Detection limit <= 0.01 ng/Ordered By: Nicole Posadas on 04-02-2023 Troponin I.cardiac DL <= 0.01 ng/mL [Mass/Vol] 2.6 pg/mL 0.0-15.0 [facility] Urea nitrogen [Mass/volume] in Serum or PlasmaOrdered By: Nicole Posadas on 04-02-2023 Urea nitrogen [Mass/Vol] 7 mg/dL Normal 09-30 [facility] Comment on above: Performed By: #### L IPASE, CBC, CMP, HS TROP #### [facility] [address] [place] [address] [place] Urinalysison 04-02-2023 Appearance (U) Clear Normal Clear [facility] Comment on above: Order Comment: Name Collection Type:: Clean-Voided Midstream Performed By: #### U A #### [place] [address] [place] Bilirubin,Urine Negative Normal Negative [facility] Comment on above: Order Comment: Name Collection Type:: Clean-Voided Midstream Performed By: #### U A #### [place] [address] [place] Glucose Ql (U) Normal Normal Normal [facility] Comment on above: Order Comment: Name Collection Type:: Clean-Voided Midstream Performed By: #### U A #### [place] [id number] [place] Ketones Ql (U) Negative Normal Negative [facility] Comment on above: Order Comment: Name Collection Type:: Clean-Voided Midstream Performed By: #### U A #### [address] Leukocyte esterase Test strip Ql (U) Negative Normal Negative [facility] Comment on above: Order Comment: Name Collection Type:: Clean-Voided Midstream Performed By: #### U A #### [address] [address] [place] Nitrite,Urine Negative Normal Negative [facility] Comment on above: Order Comment: Name Collection Type:: Clean-Voided Midstream Performed By: #### U A #### [address] [address] [place] Occult Blood,Urine Negative Normal Negative [facility] Comment on above: Order Comment: Name Collection Type:: Clean-Voided Midstream Result Comment: PERF ORMED BY: [place] [address] PATHOLOGIST IT DATA ARCHITECT PAULA RODRIGUES M.D. Performed By: #### U A #### [facility] [address] [place] [address] [place] Protein,Urine Negative Normal Negative [facility] Comment on above: Order Comment: Name Collection Type:: Clean-Voided Midstream Performed By: #### U A #### [address] Specificy Nitro,Urine 1.022 Normal 1.001-1.03 0 [facility] Comment on above: Order Comment: Name Collection Type:: Clean-Voided Midstream Performed By: #### U A #### [address] Urobilinogen,Urine Normal Normal Normal [facility] Comment on above: Order Comment: Name Collection Type:: Clean-Voided Midstream Performed By: #### U A #### [address] Urine clarity by refractomet ry automatedOrdered By: Nicole Posadas on 04-02-2023 Clarity Refractometry automated (U) Clear Clear [facility] Urine glucose measurement by automated test strip (mass/volume)Ordered By: Nicole Posadas on 04-02-2023 Glucose Auto test strip (U) [Mass/Vol] Normal mg/dL Normal [facility] Urine hemoglobin detection b y automated test stripOrdered By: Nicole Posadas on 04-02-2023 Hemoglobin Auto test strip Ql (U) Negative Negative [facility] Urine leukocyte esterase det ection by automated test stripOrdered By: Nicole Posadas on 04-02-2023 Leukocyte esterase Auto test strip Ql (U) Negative Negative [facility] Urine pH measurement by auto mated test stripOrdered By: Nicole Posadas on 04-02-2023 pH (U) 5.5 [pH] Normal 5.0-9.0 [facility] Comment on above: Order Comment: Name Collection Type:: Clean-Voided Midstream Performed By: #### U A #### [facility] [address] Urobilinogen Auto test strip (U) [Mass/Vol]Ordered By: Nicole Posadas on 04-02-2023 Urobilinogen (U) [Mass/Vol] Normal mg/dL Normal [facility] CT ABDOMEN AND PELVIS W CONT on [...] Flower MD on 03/27/2023 12:55 AM Normal [facility] CBC AND AUTO DIFFon 03-26-19 ABSOLUTE BASOPHIL 0.1 X10E9/L Normal 0.0-0.2 [facility] Comment on above: Performed By: #### C BCA, 3040-3, CMP, 41426-2, 09626-1, 80132- 1 #### [facility] ([id number]) [address] [place] [address] ABSOLUTE NEUTROPHIL 7.2 X10E9/L High 1.5-6.6 [facility] Comment on above: Performed By: #### C BCA, 3040-3, CMP, 90185-1, 60269-2, 34054- 1 #### [facility] ([id number]) [address] [place] [address] Basophils/100 WBC (Bld) 0.6 % Normal [facility] Comment on above: Performed By: #### C BCA, 3040-3, CMP, 71927-3, 04140-4, 58839- 1 #### [facility] ([id number]) [address] [place] [address] Eosinophils (Bld) [#/Vol] 0.0 10*3/uL Normal 0.0-0.4 [facility] Comment on above: Performed By: #### C BCA, 3040-3, CMP, 49788-9, 81580-0, 23984- 1 #### [facility] ([id number]) [address] [place] [address] Eosinophils/100 WBC (Bld) 0.1 % Normal [facility] Comment on above: Performed By: #### C BCA, 3040-3, CMP, 07930-5, 77205-7, 66410- 1 #### [facility] ([id number]) [address] [place] [address] Erythrocyte distribution width (RBC) [Ratio] 13.7 % Normal 11.5-15.0 [facility] Comment on above: Performed By: #### C BCA, 3040-3, CMP, 03772-5, 59578-8, 99222- 1 #### [facility] ([id number]) [address] [place] [address] Hematocrit (Bld) [Volume fraction] 40.4 % Normal 35-47 [facility] Comment on above: Performed By: #### C BCA, 3040-3, CMP, 02999-9, 93385-9, 79262- 1 #### [facility] ([id number]) [address] [place] [address] Hemoglobin (Bld) [Mass/Vol] 13.8 g/dL Normal 11.7-15.5 [facility] Comment on above: Performed By: #### C BCA, 3040-3, CMP, 47237-2, 49739-1, 86450- 1 #### [facility] ([id number]) [address] [place] [address] Lymphocytes (Bld) [#/Vol] 1.7 10*3/uL Normal 1.0-3.5 [facility] Comment on above: Performed By: #### C BCA, 3040-3, CMP, 71603-3, 00182-3, 48703- 1 #### [facility] ([id number]) [address] [place] [address] Lymphocytes/100 WBC (Bld) 17.8 % Normal [facility] Comment on above: Performed By: #### C BCA, 3040-3, CMP, 95087-8, 67474-8, 49552- 1 #### [facility] ([id number]) [address] [place] [address] MCH (RBC) [Entitic mass] 33.0 pg Normal 27-34 [facility] Comment on above: Performed By: #### C BCA, 3040-3, CMP, 88022-7, 06118-8, 50026- 1 #### [facility] ([id number]) [address] [place] [address] MCHC (RBC) [Mass/Vol] 34.1 g/dL Normal 32-36 [facility] Comment on above: Performed By: #### C BCA, 3040-3, CMP, 33363-3, 32171-1, 45571- 1 #### [facility] ([id number]) [address] [place] [address] MCV (RBC) [Entitic vol] 97 fL Normal 80-100 [facility] Comment on above: Performed By: #### Clara BCA, 3040-3, CMP, 32898-1, 49068-5, 98805- 1 #### [facility] ([id number]) [address] [place] [address] Monocytes (Bld) [#/Vol] 0.8 10*3/uL Normal 0-0.9 [facility] Comment on above: Performed By: #### C EZEQUIEL, 3040-3, CMP, 88929-9, 20051-5, 35033- 1 #### [facility] ([id number]) [address] [place] [address] Monocytes/100 WBC (Bld) 7.8 % Normal [facility] Comment on above: Performed By: #### Clara BCA, 3040-3, CMP, 37451-0, 91037-2, 68791- 1 #### [facility] ([id number]) [address] [place] [address] Neutrophils/100 WBC (Bld) 73.7 % Normal [facility] Comment on above: Performed By: #### Clara BCA, 3040-3, CMP, 87207-6, 98079-4, 98017- 1 #### [facility] ([id number]) [address] [place] [address] Platelet mean volume (Bld) [Entitic vol] 7.6 fL Normal 7-12 [facility] Comment on above: Performed By: #### C BCA, 3040-3, CMP, 60318-5, 05513-2, 73251- 1 #### [facility] ([id number]) [address] [place] [address] Platelets (Bld) [#/Vol] 269 10*3/uL Normal 150-450 [facility] Comment on above: Performed By: #### C BCA, 3040-3, CMP, 93826-5, 31465-9, 95209- 1 #### [facility] ([id number]) [address] [place] [address] RBC COUNT 4.17 X10E12/L Normal 3.80-5.20 [facility] Comment on above: Performed By: #### C BCA, 3040-3, CMP, 52448-0, 29219-3, 00231- 1 #### [facility] ([id number]) [address] [place] [address] WBC (Bld) [#/Vol] 9.8 10*3/uL Normal 4.0-11.0 [facility] Comment on above: Performed By: #### C BCA, 3040-3, CMP, 28871-5, 90575-2, 83542- 1 #### [facility] ([id number]) [address] [place] [address] COMPREHENSIVE METABOLIC PANE Nimesh 03-26-2023 Albumin [Mass/Vol] 4.6 g/dL Normal 3.2-5.3 [facility] Comment on above: Performed By: #### C BCA, 3040-3, CMP, 23266-1, 01283-2, 18732- 1 #### [facility] ([id number]) [address] [place] [address] ALP [Catalytic activity/Vol] 125 U/L Normal 39-130 [facility] Comment on above: Performed By: #### C BCA, 3040-3, CMP, 24696-8, 25579-7, 83266- 1 #### [facility] ([id number]) [address] [place] [address] ALT [Catalytic activity/Vol] 17 U/L Normal 0-31 [facility] Comment on above: Performed By: #### C BCA, 3040-3, CMP, 98027-1, 16665-0, 99866- 1 #### [facility] ([id number]) [address] [place] [address] Anion gap [Moles/Vol] 10 mmol/L Normal 5-15 [facility] Comment on above: Performed By: #### C BCA, 3040-3, CMP, 76804-8, 32849-8, 95871- 1 #### [facility] ([id number]) [address] [place] [address]66 AST [Catalytic activity/Vol] 27 U/L Normal 0-41 [facility] Comment on above: Performed By: #### C BCA, 3040-3, CMP, 99689-1, 74726-2, 74474- 1 #### [facility] ([id number]) [address] [place] [address] Bilirubin [Mass/Vol] 0.4 mg/dL Normal 0.3-1.2 [facility] Comment on above: Performed By: #### C BCA, 3040-3, CMP, 39746-0, 28870-5, 27660- 1 #### [facility] ([id number]) [address] [place] [address] Calcium [Mass/Vol] 10.4 mg/dL Normal 8.5-10.5 [facility] Comment on above: Performed By: #### C BCA, 3040-3, CMP, 10928-1, 84784-5, 82715- 1 #### [facility] ([id number]) [address] [place] [address] Chloride [Moles/Vol] 103 mmol/L Normal 98-109 [facility] Comment on above: Performed By: #### C BCA, 3040-3, CMP, 37186-2, 88059-7, 48242- 1 #### [facility] [facility] ([id number]) [address] [place] [address]38 CO2 [Moles/Vol] 25 mmol/L Normal 22-32 [facility] Comment on above: Performed By: #### C BCA, 3040-3, CMP, 13957-7, 24772-0, 34750- 1 #### [facility] ([id number]) [address] [place] [address] 04784 Creatinine [Mass/Vol] 0.96 mg/dL Normal 0.40-1.00 [facility] Comment on above: Result Comment: METH OD TRACEABLE TO IDMS STANDARD Performed By: #### C BCA, 3040-3, CMP, 18578-2, 75022-0, 59896-8 #### [facility] ([id number]) [address] [place] [address] 35927 GFR/1.73 sq M.predicted among non-blacks MDRD (S/P/Bld) [Vol rate/Area] 71 mL/min/{1.73_m2} Normal >59 [facility] Comment on above: Result Comment: Reported eGFR is based on the CKD-EPI 2020 equation that does not use a race coefficient. Performed By: #### C BCA, 3040-3, CMP, 40423-1, 11406-1, 35186-3 #### [facility] ([id number]) [address] [place] [address]19 Glucose [Mass/Vol] 97 mg/dL Normal 65-99 [facility] Comment on above: Performed By: #### C BCA, 3040-3, CMP, 00585-2, 05665-4, 88851- 1 #### [facility] ([id number]) [address] [place] [address] 97110 Potassium [Moles/Vol] 4.2 mmol/L Normal 3.5-5.0 [facility] Comment on above: Performed By: #### C BCA, 3040-3, CMP, 89844-0, 12369-3, 37422- 1 #### [facility] ([id number]) [address] [place] [address] 28187 Protein [Mass/Vol] 7.4 g/dL Normal 6.0-8.0 [facility] Comment on above: Performed By: #### C BCA, 3040-3, CMP, 40257-1, 26826-8, 94322- 1 #### [facility] ([id number]) [address] [place] [address] 69703 Sodium [Moles/Vol] 138 mmol/L Normal 134-146 [facility] Comment on above: Performed By: #### C BCA, 3040-3, CMP, 71333-6, 58353-9, 38455- 1 #### [facility] ([id number]) [address] [place] [address] 52037 Urea nitrogen [Mass/Vol] 14 mg/dL Normal 5-23 [facility] Comment on above: Performed By: #### C BCA, 3040-3, CMP, 17198-3, 40170-1, 67403- 1 #### [facility] ([id number]) [address] [place] [address] 78339 LIPASEon 03-26-2023 Lipase [Catalytic activity/Vol] 31 U/L Normal 17-40 [facility] Comment on above: Performed By: #### C BCA, 3040-3, CMP, 42568-6, 02541-2, 79808- 1 #### [facility] ([id number]) [address] [place] [address] 59509 Lactate (P richard) [Moles/Vol]o n 03-26-2023 LACTATE W/REFLEX 1.2 mmol/L Normal 0.4-2.0 [facility] Comment on above: Result Comment: Result did not trigger repeat Lactate, re-order if needed. Performed By: #### C BCA, 3040-3, CMP, 45184-7, 20685-7, 23951-1 #### [facility] ([id number]) [address] [place] [address] 24813 MAGNESIUMon 03-26-2023 Magnesium [Mass/Vol] 2.0 mg/dL Normal 1.8-2.6 [facility] Comment on above: Performed By: #### C BCA, 3040-3, CMP, 74261-3, 62318-0, 81540- 1 #### [facility] ([id number]) [address] [place] [address] 02374 TROPONIN Ion 03-26-2023 Troponin I.cardiac [Mass/Vol] ng/mL Normal 0.00-0.04 [facility] Comment on above: Performed By: #### C BCA, 3040-3, CMP, 79310-0, 75118-9, 19458- 1 #### [facility] ([id number]) [address] [place] [address] 55378 Alanine aminotransferase [En zymatic activity/volume] in Serum or PlasmaOrdered By: Nicole Posadas on 11-09-2022 ALT [Catalytic activity/Vol] 12 U/L Normal 7-52 [facility] Comment on above: Performed By: #### C MP, LIPASE, CBC #### [facility] [address] Albumin [Mass/volume] in Ser um or Plasma by Bromocresol green (BCG) dye binding methoOrdered By: Nicole Posadas on 11-09-2022 Albumin BCG dye [Mass/Vol] 4.4 g/dL 3.5-5.7 [facility] Alkaline phosphatase [Enzyma tic activity/volume] in Serum or PlasmaOrdered By: Nicole Posadas on 11-09-2022 ALP [Catalytic activity/Vol] 126 U/L High 34-104 [facility] Comment on above: Performed By: #### C MP, LIPASE, CBC #### [address] Aspartate aminotransferase [ Enzymatic activity/volume] in Serum or PlasmaOrdered By: Nicole Littlee on 11-09-2022 AST [Catalytic activity/Vol] 17 U/L Normal 13-39 [facility] Comment on above: Performed By: #### C MP, LIPASE, CBC #### [address] Automated basophil %Ordered By: Nicole Jjanand on 11-09-2022 Basophils/100 WBC (Bld) 0.9 % Normal . [facility] Comment on above: Performed By: #### C MP, LIPASE, CBC #### [facility] [address] [place] [address] Automated basophil countOrde red By: Nicole Posadas on 11-09-2022 Basophils (Bld) [#/Vol] 0.1 10*3/uL Normal 0.0-0.2 [facility] Comment on above: Result Comment: PERF ORMED BY: [place] [address] PATHOLOGIST IT DATA ARCHITECT PAULA RODRIGUES M.D. Performed By: #### C MP, LIPASE, CBC #### [facility] [address] [place] [address] Automated blood monocyte cou ntOrdered By: Nicole Jjanand on 11-09-2022 Monocytes (Bld) [#/Vol] 0.8 10*3/uL Normal 0.0-0.8 [facility] Comment on above: Performed By: #### C MP, LIPASE, CBC #### [address] Automated eosinophil %Ordere d By: Nicole Posadas on 11-09-2022 Eosinophils/100 WBC (Bld) 1.6 % Normal . [facility] Comment on above: Performed By: #### C MP, LIPASE, CBC #### [address] Automated eosinophil countOr dered By: Nicole Posadas on 11-09-2022 Eosinophils (Bld) [#/Vol] 0.1 10*3/uL Normal 0.0-0.45 [facility] Comment on above: Performed By: #### C MP, LIPASE, CBC #### [address] Automated monocyte %Ordered By: Nicole Posadas on 11-09-2022 Monocytes/100 WBC (Bld) 8.1 % Normal . [facility] Comment on above: Performed By: #### C MP, LIPASE, CBC #### [address] Automated neutrophil %Ordere d By: Nicole Posadas on 11-09-2022 Neutrophils/100 WBC (Bld) 65.4 % Normal . [facility] Comment on above: Performed By: #### C MP, LIPASE, CBC #### [address] Automated urine color determ inationOrdered By: Nicole Posadas on 11-09-2022 Color (U) Yellow Normal Yellow [facility] Comment on above: Order Comment: Name Collection Type:: Clean-Voided Midstream Performed By: #### L IPASE, CBC, CMP, HS TROP #### [address] Bilirubin Test strip Ql (U)O rdered By: Nicole Posadas on 11-09-2022 Bilirubin Ql (U) Negative Negative [facility] Bilirubin.total [Mass/volume ] in Serum or PlasmaOrdered By: Nicole Posadas on 11-09-2022 Bilirubin [Mass/Vol] 0.3 mg/dL Normal 0.3-1.0 [facility] Comment on above: Performed By: #### C MP, LIPASE, CBC #### [address] abdomen pelvis w conon CT abdomen pelvis w con [facility] [place] [address] [place] [address] CT Scan Report Signed Patient: Chioma Arciniega MR#: [id number] : 1970 Acct:[id number] Age/Sex: 52 / F ADM Date: 11/09/22 [...] Rajeev Ulloa M.D.11/09/2022 4:14 PM Dictation Location: [place] [address] Transcribed By: [facility] 11/09/22 1614 Dictated By: Rajeev Ulloa II, MD 11/09/22 1608 Signed By: 11/09/22 1614 Normal [facility] Calcium [Mass/volume] in Ser um or PlasmaOrdered By: Nicole Posadas on 11-09-2022 Calcium [Mass/Vol] 9.7 mg/dL Normal 8.6-10.3 [facility] Comment on above: Performed By: #### C MP, LIPASE, CBC #### [address] Carbon dioxide, total [Moles /volume] in Serum or PlasmaOrdered By: Nicole Posadas on 11-09-2022 CO2 [Moles/Vol] 28.6 mmol/L Normal 21.0-31.0 [facility] Comment on above: Performed By: #### C MP, LIPASE, CBC #### [address] Chloride [Moles/volume] in S erika or PlasmaOrdered By: Nicole Posadas on 11-09-2022 Chloride [Moles/Vol] 107 mmol/L Normal 98-107 [facility] Comment on above: Performed By: #### C MP, LIPASE, CBC #### [address] Complete Blood Count Auto Di ffon 11-09-2022 Mean Corpuscular HGB Conc 33.4 g/dL Normal 32.0-35.0 [facility] Comment on above: Performed By: #### C MP, LIPASE, CBC #### [place] [address] [place] Monocytes/100 WBC (Bld) 18.76 % Normal 0.00-20.00 [facility] Comment on above: Performed By: #### C MP, LIPASE, CBC #### [place] [address] [place] NRBC% 0.0 /100{WBC} Normal 0-0.5 [facility] Comment on above: Performed By: #### C MP, LIPASE, CBC #### [address] Comprehensive Metabolic Pane nimesh 11-09-2022 Albumin [Mass/Vol] 4.4 g/dL Normal 3.5-5.7 [facility] Comment on above: Performed By: #### C MP, LIPASE, CBC #### [address] Creatinine Clr Calc Pharmacy 69.00 Normal [facility] Comment on above: Performed By: #### C MP, LIPASE, CBC #### [address] GFR/1.73 sq M.predicted MDRD (S/P/Bld) [Vol rate/Area] mL/min/{1.73_m2} Normal [facility] Comment on above: Performed By: #### C MP, LIPASE, CBC #### [address] Creatinine [Mass/volume] in Serum or PlasmaOrdered By: Nicole Posadas on 11-09-2022 Creatinine [Mass/Vol] 0.78 mg/dL Normal 0.60-1.20 [facility] Comment on above: Performed By: #### C MP, LIPASE, CBC #### [address] ECG 12 lead ECGon 11-09-2022 ECG 12 lead ECG [facility] [place] [address] [place] [address] Electrocardiograph Report Signed Patient: Chioma Arciniega MR#: [id number] : 1970 Acct:[id number] Age/Sex: 52 / F ADM Date: 11/09/22 Loc: ER Room: Type: [facility] ER Attending Dr: Ordering Provider: Nicole [...] Agustin Llanes MD 06/29 0147 Normal [facility] Erythrocyte distribution wid th [Ratio] by Automated countOrdered By: Nicole Posadas on 11-09-2022 Erythrocyte distribution width (RBC) [Ratio] 13.6 % Normal 11.9-15.3 [facility] Comment on above: Performed By: #### C MP, LIPASE, CBC #### [facility] [address] [place] [address] [place] Erythrocytes [#/volume] in B lood by Automated countOrdered By: Nicole Posadas on 11-09-2022 RBC (Bld) [#/Vol] 4.52 10*6/uL Normal 3.60-5.00 [facility] Comment on above: Performed By: #### C MP, LIPASE, CBC #### [facility] [address] [place] [address] Glucose [Mass/volume] in Ser um or PlasmaOrdered By: Nicole Posadas on 11-09-2022 Glucose [Mass/Vol] 96 mg/dL Normal 70-100 [facility] Comment on above: ADA recommended refe rence rangeRandom Glucose Reference Range is dependent on time and content of last meal. Glucose of more than 200 mg/dL in a nonstressed, ambulatory subject supports the diagnosis of Diabetes Mellitus. Result Comment: [place] om Glucose Reference Range is dependent on time and content of last meal. Glucose of more than 200 mg/dL in a nonstressed, ambulatory subject supports the diagnosis of Diabetes Mellitus. ADA recommended reference range Performed By: #### C MP, LIPASE, CBC #### [facility] [address] Hematocrit [Volume Fraction] of Blood by Automated countOrdered By: Nicole Posadas on 11-09-2022 Hematocrit (Bld) [Volume fraction] 44.4 % Normal 34.0-46.4 [facility] Comment on above: Performed By: #### C MP, LIPASE, CBC #### [facility] [address] Hemoglobin [Mass/volume] in BloodOrdered By: Nicole Posadas on 11-09-2022 Hemoglobin (Bld) [Mass/Vol] 14.9 g/dL Normal 11.8-15.4 [facility] Comment on above: Performed By: #### C MP, LIPASE, CBC #### [facility] [address] [place] [address] Ketones Auto test strip (U) [Mass/Vol]Ordered By: Nicole Posadas on 11-09-2022 Ketones (U) [Mass/Vol] Negative Negative [facility] Leukocytes [#/volume] correc aurelia for nucleated erythrocytes in Blood by Automated counOrdered By: Nicole Posadas on 11-09-2022 WBC corrected for nucl RBC Auto (Bld) [#/Vol] 9.3 10*3/uL 3.8-11.6 [facility] Leukocytes [#/volume] in Blo od by Automated countOrdered By: Nicole Posadas on 11-09-2022 WBC (Bld) [#/Vol] 9.3 10*3/uL Normal 3.8-11.6 [facility] Comment on above: Performed By: #### C MP, LIPASE, CBC #### [facility] [address] [place] [address] Lipase [Enzymatic activity/v olume] in Serum or PlasmaOrdered By: Nicole Posadas on 11-09-2022 Lipase [Catalytic activity/Vol] 78.0 U/L Normal 11.0-82.0 [facility] Comment on above: Result Comment: PERF ORMED BY: [place] [address] PATHOLOGIST IT DATA ARCHITECT PAULA RODRIGUES M.D. Performed By: #### C MP, LIPASE, CBC #### [address] Lymphocytes [#/volume] in Bl ood by Automated countOrdered By: Nicole Posadas on 11-09-2022 Lymphocytes (Bld) [#/Vol] 2.2 10*3/uL Normal 1.00-4.8 [facility] Comment on above: Performed By: #### C MP, LIPASE, CBC #### [address] Lymphocytes/100 leukocytes i n Blood by Automated countOrdered By: Nicole Posadas on 11-09-2022 Lymphocytes/100 WBC (Bld) 24.0 % Normal . [facility] Comment on above: Performed By: #### C MP, LIPASE, CBC #### [address] MCH [Entitic mass] by Automa aurelia countOrdered By: Nicole Posadas on 11-09-2022 MCH (RBC) [Entitic mass] 32.8 pg Normal 24.7-34.3 [facility] Comment on above: Performed By: #### C MP, LIPASE, CBC #### [address] MCHC Auto (RBC) [Mass/Vol]Or dered By: Nicole Posadas on 11-09-2022 MCHC (RBC) [Mass/Vol] 33.4 g/dL 32.0-35.0 [facility] MCV [Entitic volume] by Auto mated countOrdered By: Nicole Posadas on 11-09-2022 MCV (RBC) [Entitic vol] 98.2 fL Normal 80-100 [facility] Comment on above: Performed By: #### C MP, LIPASE, CBC #### [address] Monocyte distribution width [Entitic volume] in Blood by AutomatedOrdered By: Nicole Posadas on 11-09-2022 Monocyte distribution width Auto (Bld) [Entitic vol] 18.76 % 0.00-20.00 [facility] Neutrophils [#/volume] in Bl ood by Automated countOrdered By: Nicole Posadas on 11-09-2022 Neutrophils (Bld) [#/Vol] 6.1 10*3/uL Normal 1.8-7.7 [facility] Comment on above: Performed By: #### C MP, LIPASE, CBC #### [facility] [address] Nitrite Test strip Ql (U)Ord ered By: Nicole Posadas on 11-09-2022 Nitrite Ql (U) Negative Negative [facility] No Panel InformationOrdered By: Nicole Posadas on 11-09-2022 Estimated GFR (CKD-EPI) > 60.0 mL/Min [facility] Creatinine Clearance (Chem 69.00 [facility] Nucleated erythrocytes [Pres ence] in Blood by Automated countOrdered By: Nicole Posadas on 11-09-2022 Nucleated RBC Auto Ql (Bld) 0.0 /100{WBC} 0-0.5 [facility] Platelet mean volume [Entiti c volume] in Blood by Automated countOrdered By: Nicole Posadas on 11-09-2022 Platelet mean volume (Bld) [Entitic vol] 8.3 fL Normal 6.3-10.7 [facility] Comment on above: Performed By: #### C MP, LIPASE, CBC #### [facility] [address] [place] [address] [place] Platelets [#/volume] in Bloo d by Automated countOrdered By: Nicole Posadas on 11-09-2022 Platelets (Bld) [#/Vol] 246 10*3/uL Normal 150-450 [facility] Comment on above: Performed By: #### C MP, LIPASE, CBC #### [facility] [address] Potassium [Moles/volume] in Serum or PlasmaOrdered By: Nicole Posadas on 11-09-2022 Potassium [Moles/Vol] 3.7 mmol/L Normal 3.5-5.1 [facility] Comment on above: Performed By: #### C MP, LIPASE, CBC #### [address] Protein Auto test strip (U) [Mass/Vol]Ordered By: Nicole Posadas on 11-09-2022 Protein (U) [Mass/Vol] Negative Negative [facility] Protein [Mass/volume] in Ser um or PlasmaOrdered By: Nicole Posadas on 11-09-2022 Protein [Mass/Vol] 7.1 g/dL Normal 6.4-8.9 [facility] Comment on above: Performed By: #### C MP, LIPASE, CBC #### [address] Serum globulin measurement b y calculation (mass/volume)Ordered By: Nicole Posadas on 11-09-2022 Globulin (S) [Mass/Vol] 2.7 g/dL [facility] Comment on above: Performed By: #### C MP, LIPASE, CBC #### [address] Serum or plasma albumin/glob ulin mass ratioOrdered By: Nicole Posadas on 11-09-2022 Albumin/Globulin [Mass ratio] 1.6 {ratio} [facility] Comment on above: Performed By: #### C MP, LIPASE, CBC #### [address] Serum or plasma anion gap de terminationOrdered By: Nicole Posadas on 11-09-2022 Anion gap [Moles/Vol] 8.1 mmol/L Normal 6.0-15.0 [facility] Comment on above: Performed By: #### C MP, LIPASE, CBC #### [address] Sodium [Moles/volume] in Ser um or PlasmaOrdered By: Nicole Posadas on 11-09-2022 Sodium [Moles/Vol] 140 mmol/L Normal 136-145 [facility] Comment on above: Performed By: #### C MP, LIPASE, CBC #### [address] Specific gravity Auto test s trip (U) [Rel density]Ordered By: Nicole Posadas on 11-09-2022 Specific gravity (U) [Rel density] 1.012 1.001-1.03 0 [facility] Troponin I High Sensitivityo n 11-09-2022 Troponin I High Sensitivity 3.0 pg/mL Normal 0.0-15.0 [facility] Comment on above: Result Comment: PERF ORMED BY: [place] [address] PATHOLOGIST IT DATA ARCHITECT PAULA RODRIGUES M.D. Performed By: #### H S TROP #### [address] Troponin I.cardiac [Mass/vol ume] in Serum or Plasma by Detection limit <= 0.01 ng/Ordered By: Nicole Posadas on 11-09-2022 Troponin I.cardiac DL <= 0.01 ng/mL [Mass/Vol] 3.0 pg/mL 0.0-15.0 [facility] Urea nitrogen [Mass/volume] in Serum or PlasmaOrdered By: Nicole Posadas on 11-09-2022 Urea nitrogen [Mass/Vol] 6 mg/dL Low 7-25 [facility] Comment on above: Performed By: #### C MP, LIPASE, CBC #### [address] Urinalysison 11-09-2022 Appearance (U) Clear Normal Clear [facility] Comment on above: Order Comment: Name Collection Type:: Clean-Voided Midstream Performed By: #### L IPASE, CBC, CMP, HS TROP #### [address] Bilirubin,Urine Negative Normal Negative [facility] Comment on above: Order Comment: Name Collection Type:: Clean-Voided Midstream Performed By: #### L IPASE, CBC, CMP, HS TROP #### [address] Glucose Ql (U) Normal Normal Normal [facility] Comment on above: Order Comment: Name Collection Type:: Clean-Voided Midstream Performed By: #### L IPASE, CBC, CMP, HS TROP #### [place] [address] [place] Ketones Ql (U) Negative Normal Negative [facility] Comment on above: Order Comment: Name Collection Type:: Clean-Voided Midstream Performed By: #### L IPASE, CBC, CMP, HS TROP #### [address] Leukocyte esterase Test strip Ql (U) Negative Normal Negative [facility] Comment on above: Order Comment: Name Collection Type:: Clean-Voided Midstream Performed By: #### L IPASE, CBC, CMP, HS TROP #### [place] [address] [place] Nitrite,Urine Negative Normal Negative [facility] Comment on above: Order Comment: Name Collection Type:: Clean-Voided Midstream Performed By: #### L IPASE, CBC, CMP, HS TROP #### [place] [address] [place] Occult Blood,Urine Negative Normal Negative [facility] Comment on above: Order Comment: Name Collection Type:: Clean-Voided Midstream Result Comment: PERF ORMED BY: [place] [address] PATHOLOGIST IT DATA ARCHITECT PALUA RODRIGUES M.D. Performed By: #### L IPASE, CBC, CMP, HS TROP #### [place] [address] [place] Protein,Urine Negative Normal Negative [facility] Comment on above: Order Comment: Name Collection Type:: Clean-Voided Midstream Performed By: #### L IPASE, CBC, CMP, HS TROP #### [place] [address] [place] Specificy Nitro,Urine 1.012 Normal 1.001-1.03 0 [facility] Comment on above: Order Comment: Name Collection Type:: Clean-Voided Midstream Performed By: #### L IPASE, CBC, CMP, HS TROP #### [facility] [address] Urobilinogen,Urine Normal Normal Normal [facility] Comment on above: Order Comment: Name Collection Type:: Clean-Voided Midstream Performed By: #### L IPASE, CBC, CMP, HS TROP #### [facility] [address] Urine clarity by refractomet ry automatedOrdered By: Nicole Posadas on 11-09-2022 Clarity Refractometry automated (U) Clear Clear [facility] Urine glucose measurement by automated test strip (mass/volume)Ordered By: Nicole Posadas on 11-09-2022 Glucose Auto test strip (U) [Mass/Vol] Normal mg/dL Normal [facility] Urine hemoglobin detection b y automated test stripOrdered By: Nicole Posadas on 11-09-2022 Hemoglobin Auto test strip Ql (U) Negative Negative [facility] Urine leukocyte esterase det ection by automated test stripOrdered By: Nicole Posadas on 11-09-2022 Leukocyte esterase Auto test strip Ql (U) Negative Negative [facility] Urine pH measurement by auto mated test stripOrdered By: Nicole Posadas on 11-09-2022 pH (U) 5.5 [pH] Normal 5.0-9.0 [facility] Comment on above: Order Comment: Name Collection Type:: Clean-Voided Midstream Performed By: #### L IPASE, CBC, CMP, HS TROP #### [facility] [address] Urobilinogen Auto test strip (U) [Mass/Vol]Ordered By: Nicole Posadas on 11-09-2022 Urobilinogen (U) [Mass/Vol] Normal mg/dL Normal [facility] EUSon 08-12-2022 [facility] Gastroenterology Patient Name: Chioma Rainey Procedure Date: 08/12/2022 11:09 AM Date of : 1970 Admit Type: Outpatient Age: 52 Room: EUS Proc Room 01 Gender: Female Note Status: Finalized Attending MD: Sabrina Dee MD, MPH, [id number] Procedure: Upper EUS Indications: Chronic pancreatitis, Epigastric abdominal pain, Celiac plexus block for pain secondary to chronic pancreatitis, Dysphagia, Follow-up of esophageal stenosis, For therapy of esophageal stenosis Providers: Sabrina Dee MD, MPH (Doctor), Kolby Gifford RN (Nurse), Elba Faustin (Nurse), Mary Gaviria Photovoltaic Subcontractor (Photovoltaic Subcontractor) Referring MD: Elie Nichols MD (Referring MD) [...] by the physician, the nurse and the channel marketing specialist in the procedure room. Mental Status Examination: [...] abnor (more content not included)... LAB, [facility] Radiology Study observation (narrative) [facility] AMYLASEon 06-13-2022 Amylase [Catalytic activity/Vol] 92 U/L Normal 25-115 [facility] Comment on above: Performed By: #### L IPA, CMP, CRP, NAT #### [facility] [address] [place] [address] Dr. Keturah Fisher CBC AUTO DIFFon 06-13-2022 BASO # 0.1 103/ul Normal 0.0-0.1 [facility] Comment on above: Performed By: #### L IPA, CMP, CRP, NAT #### [facility] [address] [place] [address] Dr. Keturah Fisher Basophils/100 WBC (Bld) 0.7 % Normal 0.2-2.0 [facility] Comment on above: Performed By: #### L IPA, CMP, CRP, NAT #### [facility] [address] [place] [address] Dr. Keturah Fisher EO # 0.1 103/ul Normal 0.0-0.7 [facility] Comment on above: Performed By: #### L IPA, CMP, CRP, NAT #### [facility] [address] [place] [address] Dr. Keturah Fisher Eosinophils/100 WBC (Bld) 1.1 % Normal 0.9-7.0 [facility] Comment on above: Performed By: #### L IPA, CMP, CRP, NAT #### [facility] [address] [place] [address] Dr. Keturah Fisher Erythrocyte distribution width (RBC) [Ratio] 13.0 % Normal 11.0-15.0 [facility] Comment on above: Performed By: #### L IPA, CMP, CRP, NAT #### [facility] [address] [place] [address] Dr. Keturah Fisher Hematocrit (Bld) [Volume fraction] 40.5 % Normal 36.0-48.0 [facility] Comment on above: Performed By: #### L IPA, CMP, CRP, NAT #### [facility] [address] [place] [address] Dr. Keturah Fisher Hemoglobin (Bld) [Mass/Vol] 13.9 g/dL Normal 12.0-16.0 [facility] Comment on above: Performed By: #### L IPA, CMP, CRP, NAT #### [facility] [address] [place] [address] Dr. Keturah Fisher IG # 0.03 10e3/ul Normal 0.00-0.03 [facility] Comment on above: Performed By: #### L IPA, CMP, CRP, NAT #### [facility] [address] [place] [address] Dr. Keturah Fisher IG % 0.3 % Normal 0.0-0.5 [facility] Comment on above: Performed By: #### L IPA, CMP, CRP, NAT #### [facility] [address] [place] [address] Dr. Keturah Fisher LYMPH # 2.9 103/ul Normal 1.2-3.8 [facility] Comment on above: Performed By: #### L IPA, CMP, CRP, NAT #### [facility] [address] [place] [address] Dr. Keturah Fisher Lymphocytes/100 WBC (Bld) 25.0 % Normal 20.5-60.0 [facility] Comment on above: Performed By: #### L IPA, CMP, CRP, NAT #### [facility] [address] [address] [address] Keturah Fisher MANUAL DIFF REQ NO Normal [facility] Comment on above: Performed By: #### L IPA, CMP, CRP, NAT #### [facility] [address] [address] [address] Keturah Fisher MCH (RBC) [Entitic mass] 33.3 pg Normal 26.7-34.0 [facility] Comment on above: Performed By: #### L IPA, CMP, CRP, NAT #### [facility] [address] [place] [address] Dr. Keturah Fisher MCHC (RBC) [Mass/Vol] 34.3 g/dL Normal 29.9-35.2 [facility] Comment on above: Performed By: #### L IPA, CMP, CRP, NAT #### [facility] [address] [place] [address] Dr. Keturah Fisher MCV (RBC) [Entitic vol] 96.9 fL Normal 81.0-99.0 [facility] Comment on above: Performed By: #### L IPA, CMP, CRP, NAT #### [facility] [address] [place] [address] Dr. Keturah Fisher MONO # 0.7 103/ul Normal 0.3-0.8 [facility] Comment on above: Performed By: #### L IPA, CMP, CRP, NAT #### [facility] [address] [place] [address] Dr. Keturah Fisher Monocytes/100 WBC (Bld) 5.6 % Normal 1.7-12.0 [facility] Comment on above: Performed By: #### L IPA, CMP, CRP, NAT #### [facility] [address] [place] [address] Dr. Keturah Fisher NEUT # 7.8 103/ul Critically high 1.4-6.5 [facility] Comment on above: Performed By: #### L IPA, CMP, CRP, NAT #### [facility] [address] [address] [address] Keturah Fisher Neutrophils/100 WBC (Bld) 67.3 % Normal 43.0-75.0 [facility] Comment on above: Performed By: #### L IPA, CMP, CRP, NAT #### [facility] [address] [place] [address] Dr. Keturah Fisher Platelet mean volume (Bld) [Entitic vol] 9.5 fL Normal 9.5-13.5 [facility] Comment on above: Performed By: #### L IPA, CMP, CRP, NAT #### [facility] [address] [address] [address] Keturah Fisher PLT 227 103/ul Normal 150-450 [facility] Comment on above: Performed By: #### L IPA, CMP, CRP, NAT #### [facility] [address] [place] [address] Dr. Keturah Fisher RBC 4.18 106/ul Critically low 4.20-5.40 [facility] Comment on above: Performed By: #### L IPA, CMP, CRP, NAT #### [facility] [address] [place] [address] Dr. Keturah Fisher WBC 11.5 103/ul Critically high 4.0-11.0 [facility] Comment on above: Performed By: #### L IPA, CMP, CRP, NAT #### [facility] [address] [place] [address] Dr. Keturah Fisher LIPASEon 06-13-2022 Lipase [Catalytic activity/Vol] 168.0 U/L Normal 73.0-393.0 [facility] Comment on above: Performed By: #### L IPA, CMP, CRP, NAT #### [facility] [address] [place] [address] Dr. Keturah Fisher PROF 14(COMP METB)on 023 Albumin [Mass/Vol] 3.6 g/dL Normal 3.4-5.0 [facility] Comment on above: Performed By: #### L IPA, CMP, CRP, NAT #### [facility] [address] [place] [address] Dr. Keturah Fisher Albumin/Globulin [Mass ratio] 1.1 {ratio} Normal [facility] Comment on above: Performed By: #### L IPA, CMP, CRP, NAT #### [facility] [address] [address] [address] Keturah Fisher ALP [Catalytic activity/Vol] 132 U/L Critically high 46-116 [facility] Comment on above: Performed By: #### L IPA, CMP, CRP, NAT #### [facility] [address] [address] [address] Keturah Fisher ALT [Catalytic activity/Vol] 20 U/L Normal 14-59 [facility] Comment on above: Performed By: #### L IPA, CMP, CRP, NAT #### [facility] [address] [address] [address] Keturah Fisher Anion gap [Moles/Vol] 13.7 mmol/L Normal [place] Comment on above: Performed By: #### L IPA, CMP, CRP, NAT #### [facility] [address] [place] [address] Dr. Keturah Fisher AST [Catalytic activity/Vol] 19 U/L Normal 15-37 [facility] Comment on above: Performed By: #### L IPA, CMP, CRP, NAT #### [facility] [address] [place] [address] Dr. Keturah Fisher Bilirubin [Mass/Vol] 0.1 mg/dL Critically low 0.2-1.0 [facility] Comment on above: Performed By: #### L IPA, CMP, CRP, NAT #### [facility] [address] [place] [address] Dr. Keturah Fisher Calcium [Mass/Vol] 10.1 mg/dL Normal 8.5-10.1 [facility] Comment on above: Performed By: #### L IPA, CMP, CRP, NAT #### [facility] [address] [place] [address] Dr. Keturah Fisher Chloride [Moles/Vol] 104 mmol/L Normal 98-107 [facility] Comment on above: Performed By: #### L IPA, CMP, CRP, NAT #### [facility] [address] [place] [address] Dr. Keturah Fisher CO2 [Moles/Vol] 26.7 mmol/L Normal 21.0-32.0 [facility] Comment on above: Performed By: #### L IPA, CMP, CRP, NAT #### [facility] [address] [address] [address] Keturah Fisher Creatinine [Mass/Vol] 0.83 mg/dL Normal 0.55-1.02 [facility] Comment on above: Performed By: #### L IPA, CMP, CRP, NAT #### [facility] [address] [address] [address] Keturah Fisher EGFR-AF ITALIAN >60 Normal >=60 [facility] Comment on above: Performed By: #### L IPA, CMP, CRP, NAT #### [facility] [address] [address] [address] Keturah Fisher EGFR-NON AF ITALIAN >60 Normal >=60 [facility] Comment on above: Performed By: #### L IPA, CMP, CRP, NAT #### [facility] [address] [address] [address] Keturah Fisher Globulin (S) [Mass/Vol] 3.4 g/dL Normal [facility] Comment on above: Performed By: #### L IPA, CMP, CRP, NAT #### [facility] [address] [address] [address] Keturah Fisher Glucose [Mass/Vol] 115 mg/dL Critically high 74-106 [facility] Comment on above: Performed By: #### L IPA, CMP, CRP, NAT #### [facility] [address] [address] [address] Keturah Fisher Potassium [Moles/Vol] 3.4 mmol/L Critically low 3.5-5.1 [facility] Comment on above: Performed By: #### L IPA, CMP, CRP, NAT #### [facility] [address] [address] [address] Keturah Fisher Protein [Mass/Vol] 7.0 g/dL Normal 6.4-8.2 [facility] Comment on above: Performed By: #### L IPA, CMP, CRP, NAT #### [facility] [address] [address] [address] Keturah Fisher Sodium [Moles/Vol] 141 mmol/L Normal 136-145 [facility] Comment on above: Performed By: #### L IPA, CMP, CRP, NAT #### [facility] [address] [address] [address] Keturah Fisher Urea nitrogen [Mass/Vol] 9.0 mg/dL Normal 7.0-18.0 [facility] Comment on above: Performed By: #### L IPA, CMP, CRP, NAT #### [facility] [address] [address] [address] Keturah Fisher Urea nitrogen/Creatinine [Mass ratio] 10.8 mg/mg Normal [facility] Comment on above: Performed By: #### L IPA, CMP, CRP, NAT #### [facility] [address] [address] [address] Keturah Fisher XR ABD FLAT UP_PA [...] ION KRUSE Date: 2022-06-13 17:10 Normal [facility] AMYLASEon 03-29-2022 Amylase [Catalytic activity/Vol] 141 U/L Critically high 25-115 [facility] Comment on above: Performed By: #### L IVER, LIPA, BMP, NAT ####[facility] [address] [place], [place] [address]GcDr. Keturah Fisher CBC AUTO DIFFon 03-29-2022 BASO # 0.1 103/ul Normal 0.0-0.1 [facility] Comment on above: Performed By: #### L IPA, CMP, CRP, NAT #### [facility] [address] [place] [address] Dr. Keturah Fisher Basophils/100 WBC (Bld) 0.6 % Normal 0.2-2.0 [facility] Comment on above: Performed By: #### L IPA, CMP, CRP, NAT #### [facility] [address] [place] [address] Dr. Keturah Fisher EO # 0.1 103/ul Normal 0.0-0.7 [facility] Comment on above: Performed By: #### L IPA, CMP, CRP, NAT #### [facility] [address] [place] [address] Dr. Keturah Fisher Eosinophils/100 WBC (Bld) 0.7 % Critically low 0.9-7.0 [facility] Comment on above: Performed By: #### L IPA, CMP, CRP, NAT #### [facility] [address] [place] [address] Dr. Keturah Fisher Erythrocyte distribution width (RBC) [Ratio] 12.9 % Normal 11.0-15.0 [facility] Comment on above: Performed By: #### L IPA, CMP, CRP, NAT #### [facility] [address] [place] [address] Dr. Keturah Fisher Hematocrit (Bld) [Volume fraction] 39.7 % Normal 36.0-48.0 [facility] Comment on above: Performed By: #### L IPA, CMP, CRP, NAT #### [facility] [address] [place] [address] Dr. Keturah Fisher Hemoglobin (Bld) [Mass/Vol] 14.7 g/dL Normal 12.0-16.0 [facility] Comment on above: Performed By: #### L IPA, CMP, CRP, NAT #### [facility] [address] [place] [address] Dr. Keturah Fisher IG # 0.04 10e3/ul Critically high 0.00-0.03 [facility] Comment on above: Performed By: #### L IPA, CMP, CRP, NAT #### [facility] [address] [address] [address] Keturah Fisher IG % 0.4 % Normal 0.0-0.5 [facility] Comment on above: Performed By: #### L IPA, CMP, CRP, NAT #### [facility] [address] [address] [address] Keturah Fisher LYMPH # 2.1 103/ul Normal 1.2-3.8 [facility] Comment on above: Performed By: #### L IPA, CMP, CRP, NAT #### [facility] [address] [place] [address] Dr. Keturah Fisher Lymphocytes/100 WBC (Bld) 21.2 % Normal 20.5-60.0 [facility] Comment on above: Performed By: #### L IPA, CMP, CRP, NAT #### [facility] [address] [place] [address] Dr. Keturah Fisher MANUAL DIFF REQ NO Normal [facility] Comment on above: Performed By: #### L IPA, CMP, CRP, NAT #### [facility] [address] [place] [address] Dr. Keturah Fisher MCH (RBC) [Entitic mass] 33.0 pg Normal 26.7-34.0 [facility] Comment on above: Performed By: #### L IPA, CMP, CRP, NAT #### [facility] [address] [place] [address] Dr. Keturah Fisher MCHC (RBC) [Mass/Vol] 37.0 g/dL Critically high 29.9-35.2 [facility] Comment on above: Performed By: #### L IPA, CMP, CRP, NAT #### [facility] [address] [address] [address] Keturah Fisher MCV (RBC) [Entitic vol] 89.0 fL Normal 81.0-99.0 [facility] Comment on above: Performed By: #### L IPA, CMP, CRP, NAT #### [facility] [address] [place] [address] Dr. Keturah Fisher MONO # 1.0 103/ul Critically high 0.3-0.8 [facility] Comment on above: Performed By: #### L IPA, CMP, CRP, NAT #### [facility] [address] [place] [address] Dr. Keturah Fisher Monocytes/100 WBC (Bld) 10.3 % Normal 1.7-12.0 [facility] Comment on above: Performed By: #### L IPA, CMP, CRP, NAT #### [facility] [address] [place] [address] Dr. Keturah Fisher NEUT # 6.5 103/ul Normal 1.4-6.5 [facility] Comment on above: Performed By: #### L IPA, CMP, CRP, NAT #### [facility] [address] [place] [address] Dr. Keturah Fisher Neutrophils/100 WBC (Bld) 66.8 % Normal 43.0-75.0 [facility] Comment on above: Performed By: #### L IPA, CMP, CRP, NAT #### [facility] [address] [place] [address] Dr. Keturah Fisher Platelet mean volume (Bld) [Entitic vol] 9.2 fL Critically low 9.5-13.5 [facility] Comment on above: Performed By: #### L IPA, CMP, CRP, NAT #### [facility] [address] [place] [address] Dr. Keturah Fisher PLT 229 103/ul Normal 150-450 [facility] Comment on above: Performed By: #### L IPA, CMP, CRP, NAT #### [facility] [address] [place] [address] Dr. Keturah Fisher RBC 4.46 106/ul Normal 4.20-5.40 [facility] Comment on above: Performed By: #### L IPA, CMP, CRP, NAT #### [facility] [address] [place] [address] Dr. Keturah Fisher WBC 9.7 103/ul Normal 4.0-11.0 [facility] Comment on above: Performed By: #### L IPA, CMP, CRP, NAT #### [facility] [address] [address] [address] Keturah Fisher LACTATE/LACTIC ACIDon 2022 Lactate [Moles/Vol] 0.5 mmol/L Normal 0.4-1.9 [facility] Comment on above: Performed By: #### L IPA, CMP, CRP, NAT #### [facility] [address] [address] [address] Keturah Fisher LIPASEon 03-29-2022 Lipase [Catalytic activity/Vol] 308.0 U/L Normal 73.0-393.0 [facility] Comment on above: Performed By: #### L IVER, LIPA, BMP, NAT ####[facility] [address] [address]DrGopal Fisher LIVER PROFILEon 03-29-2022 Albumin [Mass/Vol] 3.3 g/dL Critically low 3.4-5.0 [place] Comment on above: Performed By: #### L IVER, LIPA, BMP, NAT ####[facility] [address] [address]Dr. Keturah Fisher Albumin/Globulin [Mass ratio] 0.8 {ratio} Normal [facility] Comment on above: Performed By: #### L IVER, LIPA, BMP, NAT ####[facility] [address] [address]Dr. Keturah Fisher ALP [Catalytic activity/Vol] 182 U/L Critically high 46-116 [facility] Comment on above: Performed By: #### L IVER, LIPA, BMP, NAT ####[facility] [address] [address]Dr. Keturah Fisher ALT [Catalytic activity/Vol] 16 U/L Normal 14-59 [facility] Comment on above: Performed By: #### L IVER, LIPA, BMP, NAT ####[facility] [address] [address]Dr. Keturah Fisher AST [Catalytic activity/Vol] 26 U/L Normal 15-37 [facility] Comment on above: Performed By: #### L IVER, LIPA, BMP, NAT ####[facility] [address] [address]Dr. Keturah Fisher BILI, CONJUGATED 0.0 mg/dL Normal 0.0-0.2 [facility] Comment on above: Performed By: #### L IVER, LIPA, BMP, NAT ####[facility] [address] [place], [place] [address]Dr. Keturah Fisher Bilirubin [Mass/Vol] 0.3 mg/dL Normal 0.2-1.0 [facility] Comment on above: Performed By: #### L IVER, LIPA, BMP, NAT ####[facility] [address] [place], [place] [address]Dr. Keturah Fisher Globulin (S) [Mass/Vol] 3.9 g/dL Normal [facility] Comment on above: Performed By: #### L IVER, LIPA, BMP, NAT ####[facility] [address] [place], [place] [address]Dr. Keturah Fisher Protein [Mass/Vol] 7.2 g/dL Normal 6.4-8.2 [facility] Comment on above: Performed By: #### L IVER, LIPA, BMP, NAT ####[facility] [address] [place], [place] [address]Dr. Keturah Fisher PROF CHEM 8 (BAS METB)on Anion gap [Moles/Vol] 14.6 mmol/L Normal [place] Comment on above: Performed By: #### L IVER, LIPA, BMP, NAT ####[facility] [address] [place], [place] [address]Dr. Keturah Fisher Calcium [Mass/Vol] 10.1 mg/dL Normal 8.5-10.1 [facility] Comment on above: Performed By: #### L IVER, LIPA, BMP, NAT ####[facility] [address] [place], [place] [address]Dr. Keturah Fisher Chloride [Moles/Vol] 104 mmol/L Normal 98-107 [facility] Comment on above: Performed By: #### L IVER, LIPA, BMP, NAT ####[facility] [address] [address]Dr. Keturah Fisher CO2 [Moles/Vol] 24.8 mmol/L Normal 21.0-32.0 [facility] Comment on above: Performed By: #### L IVER, LIPA, BMP, NAT ####[facility] [address] [address]Dr. Keturah Fisher Creatinine [Mass/Vol] 0.61 mg/dL Normal 0.55-1.02 [facility] Comment on above: Performed By: #### L IVER, LIPA, BMP, NAT ####[facility] [address] [place], [place] [address]Dr. Keturah Fisher EGFR-AF ITALIAN >60 Normal >=60 [facility] Comment on above: Performed By: #### L IVER, LIPA, BMP, NAT ####[facility] [address] [place], [place] [address]Dr. Keturah Fisher EGFR-NON AF ITALIAN >60 Normal >=60 [facility] Comment on above: Performed By: #### L IVER, LIPA, BMP, NAT ####[facility] [address] [place], [place] [address]Dr. Keturah Fisher Glucose [Mass/Vol] 98 mg/dL Normal 74-106 [facility] Comment on above: Performed By: #### L IVER, LIPA, BMP, NAT ####[facility] [address] [place], [place] [address]Dr. Keturah Fisher Potassium [Moles/Vol] 4.4 mmol/L Normal 3.5-5.1 [facility] Comment on above: Performed By: #### L IVER, LIPA, BMP, NAT ####[facility] [address] [place], [place] [address]Dr. Keturah Fisher Sodium [Moles/Vol] 139 mmol/L Normal 136-145 [facility] Comment on above: Performed By: #### L IVER, LIPA, BMP, NAT ####[facility] [address] [place], [place] [address]Dg. Keturah Fisher Urea nitrogen [Mass/Vol] 7.0 mg/dL Normal 7.0-18.0 [facility] Comment on above: Performed By: #### L ROB CHIN, FRANNIE, NAT ####[facility] [address] [place], [place] [address]Ry. Keturah Fisher Urea nitrogen/Creatinine [Mass ratio] 11.5 mg/mg Normal [facility] Comment on above: Performed By: #### L ROB CHIN BMP, NAT ####[facility] [address] [place], [place] [address]Vh. Keturah Fisher Albumin [Mass/volume] in Ser um or PlasmaOrdered By: Agustin Llanes on 03-22-2022 Albumin [Mass/Vol] 4.1 g/dL 3.2-5.5 [facility] Automated erythrocytes count in urine sediment (number/area)Ordered By: Agustin Llanes on 03-22-2022 RBC Auto (Urine sed) [#/Area] 3-4 [HPF] 0-4 [facility] Automated leukocytes count i n urine sediment (number/area)Ordered By: Agustin Llanes on 03-22-2022 WBC Auto (Urine sed) [#/Area] 10-19 [HPF] 0-4 [facility] Basophils Auto (Bld) [#/Vol] Ordered By: Agustin Llanes on 03-22-2022 Basophils (Bld) [#/Vol] 0.1 10*3/uL 0.0-0.2 [facility] Basophils/100 WBC Auto (Bld) Ordered By: Agustin Llanes on 03-22-2022 Basophils/100 WBC (Bld) 0.9 % . [facility] Bilirubin Test strip Ql (U)O rdered By: Agustin Llanes on 03-22-2022 Bilirubin Ql (U) Negative Negative [facility] Color Auto (U)Ordered By: Vita Llanes on 03-22-2022 Color (U) Yellow Yellow [facility] Creatinine and Glomerular fi ltration rate.predicted panel (S/P/Bld)Ordered By: Agustin Llanes on 03-22-2022 Creatinine [Mass/Vol] 0.74 mg/dL 0.44-1.03 [facility] Direct bilirubin measurement Ordered By: Agustin Llanes on 03-22-2022 Bilirubin.direct [Mass/Vol] 0.3 mg/dL 0.0-0.4 [facility] Eosinophils Auto (Bld) [#/Vo l]Ordered By: Agustin Llanes on 03-22-2022 Eosinophils (Bld) [#/Vol] 0.1 10*3/uL 0.0-0.45 [facility] Eosinophils/100 WBC Auto (Bl d)Ordered By: Agustin Llanes on 03-22-2022 Eosinophils/100 WBC (Bld) 0.7 % . [facility] Erythrocyte distribution wid th Auto (RBC) [Ratio]Ordered By: Agustin Llanes on 03-22-2022 Erythrocyte distribution width (RBC) [Ratio] 13.9 % 11.9-15.3 [facility] Estimated glomerular filtrat ion rate (GFR) non- AmericanOrdered By: Agustin Llanes on 03-22-2022 GFR/1.73 sq M.predicted among non-blacks MDRD (S/P/Bld) [Vol rate/Area] > 60 mL/Min [facility] Globulin Calc (S) [Mass/Vol] Ordered By: Agustin Llanes on 03-22-2022 Globulin (S) [Mass/Vol] 3.1 g/dL [facility] HCG ( test) IA.rapi d Ql (U)Ordered By: Agustin Llanes on 03-22-2022 HCG ( test) Ql (U) Negative [facility] Hematocrit Auto (Bld) [Volum e fraction]Ordered By: Agustin Llanes on 03-22-2022 Hematocrit (Bld) [Volume fraction] 45.7 % 34.0-46.4 [facility] Hemoglobin [Mass/volume] in BloodOrdered By: Agustin Llanes on 03-22-2022 Hemoglobin (Bld) [Mass/Vol] 15.2 g/dL 11.8-15.4 [facility] Ketones Auto test strip (U) [Mass/Vol]Ordered By: Agustin Llanes on 03-22-2022 Ketones (U) [Mass/Vol] Negative Negative [facility] - Chemistry and C hemistry - challengeOrdered By: Agustin Llanes on 03-22-2022 Lipase [Catalytic activity/Vol] 122.0 U/L 22-51 [facility] - UrinalysisOrder ed By: Agustin Llanes on 03-22-2022 Hyaline casts LM Ql (Urine sed) 0-8 [LPF] 0-8 [facility] Leukocytes [#/volume] correc aurelia for nucleated erythrocytes in Blood by Automated counOrdered By: Agustin Llanes on 03-22-2022 WBC corrected for nucl RBC Auto (Bld) [#/Vol] 12.4 10*3/uL 3.8-11.6 [facility] Lymphocytes Auto (Bld) [#/Vo l]Ordered By: Agustin Llanes on 03-22-2022 Lymphocytes (Bld) [#/Vol] 2.2 10*3/uL 1.00-4.8 [facility] Lymphocytes/100 WBC Auto (Bl d)Ordered By: Agustin Llanes on 03-22-2022 Lymphocytes/100 WBC (Bld) 18.0 % . [facility] MCH Auto (RBC) [Entitic mass ]Ordered By: Agustin Llanes on 03-22-2022 MCH (RBC) [Entitic mass] 32.5 pg 24.7-34.3 [facility] MCHC Auto (RBC) [Mass/Vol]Or dered By: Agustin Llanes on 03-22-2022 MCHC (RBC) [Mass/Vol] 33.2 g/dL 32.0-35.0 [facility] MCV Auto (RBC) [Entitic vol] Ordered By: Agustin Llanes on 03-22-2022 MCV (RBC) [Entitic vol] 98.0 fL 80-100 [facility] Monocyte distribution width [Entitic volume] in Blood by AutomatedOrdered By: Agustin Llanes on 03-22-2022 Monocyte distribution width Auto (Bld) [Entitic vol] 18.78 % 0.00-20.00 [facility] Monocytes Auto (Bld) [#/Vol] Ordered By: Agustin Llanes on 03-22-2022 Monocytes (Bld) [#/Vol] 1.0 10*3/uL 0.0-0.8 [facility] Monocytes/100 WBC Auto (Bld) Ordered By: Agustin Llanes on 03-22-2022 Monocytes/100 WBC (Bld) 8.0 % . [facility] Neutrophils Auto (Bld) [#/Vo l]Ordered By: Agustin Llanes on 03-22-2022 Neutrophils (Bld) [#/Vol] 9.0 10*3/uL 1.8-7.7 [facility] Neutrophils/100 WBC Auto (Bl d)Ordered By: Agustin Llanes on 03-22-2022 Neutrophils/100 WBC (Bld) 72.4 % . [facility] Nitrite Test strip Ql (U)Ord ered By: Agustin Llanes on 03-22-2022 Nitrite Ql (U) Positive Negative [facility] No Panel InformationOrdered By: Agustin Llanes on 03-22-2022 Estimated GFR () > 60 mL/Min [facility] Comment on above: GFR estimated refere nce range: According to KDOQI guidelines, <60 ml/min/1.73m2 is sufficient to diagnose a patient with chronic kidney disease. Pharmacy Creatinine Clearance (Chem 70.34 [facility] Nucleated erythrocytes [Pres ence] in Blood by Automated countOrdered By: Agustin Llanes on 03-22-2022 Nucleated RBC Auto Ql (Bld) 0.0 /100{WBC} 0-0.5 [facility] Platelet mean volume Auto (B ld) [Entitic vol]Ordered By: Agustin Llanes on 03-22-2022 Platelet mean volume (Bld) [Entitic vol] 8.0 fL 6.3-10.7 [facility] Platelets Auto (Bld) [#/Vol] Ordered By: Agustin Llanes on 03-22-2022 Platelets (Bld) [#/Vol] 266 10*3/uL 150-450 [facility] Protein Auto test strip (U) [Mass/Vol]Ordered By: Agustin Llanes on 03-22-2022 Protein (U) [Mass/Vol] Negative Negative [facility] Protein [Mass/volume] in Ser um or PlasmaOrdered By: Agustin Llanes on 03-22-2022 Protein [Mass/Vol] 7.2 g/dL 6.1-7.9 [facility] RBC Auto (Bld) [#/Vol]Ordere d By: Agustin Llanes on 03-22-2022 RBC (Bld) [#/Vol] 4.67 10*6/uL 3.60-5.00 [facility] Serum or plasma alanine hughes otransferase measurement without P-5'-P (enzymatic activiOrdered By: Agustin Llanes on 03-22-2022 ALT No additional P-5'-P [Catalytic activity/Vol] 19 U/L 10-60 [facility] Serum or plasma albumin/glob ulin mass ratioOrdered By: Agustin Llanes on 03-22-2022 Albumin/Globulin [Mass ratio] 1.3 {ratio} [facility] Serum or plasma alkaline jaqueline sphatase measurement (enzymatic activity/volume)Ordered By: Agustin Llanes on 03-22-2022 ALP [Catalytic activity/Vol] 156 U/L 32-92 [facility] Serum or plasma anion gap de terminationOrdered By: Agustin Llanes on 03-22-2022 Anion gap [Moles/Vol] 12.6 mmol/L 6.0-15.0 [facility] Serum or plasma aspartate am inotransferase measurement (enzymatic activity/volume)Ordered By: Agustin Llanes on 03-22-2022 AST [Catalytic activity/Vol] 29 U/L 10-42 [facility] Serum or plasma calcium priscilla urement (mass/volume)Ordered By: Agustin Llanes on 03-22-2022 Calcium [Mass/Vol] 9.9 mg/dL 8.2-10.2 [facility] Serum or plasma chloride daron surement (moles/volume)Ordered By: Agustin Llanes on 03-22-2022 Chloride [Moles/Vol] 103 mmol/L 95-114 [facility] Serum or plasma glucose priscilla urement (mass/volume)Ordered By: Agustin Llanes on 03-22-2022 Glucose [Mass/Vol] 106 mg/dL 70-100 [facility] Comment on above: ADA recommended refe rence rangeRandom Glucose Reference Range is dependent on time and content of last meal. Glucose of more than 200 mg/dL in a nonstressed, ambulatory subject supports the diagnosis of Diabetes Mellitus. Serum or plasma non-glucuron idated bilirubin measurement (mass/volume)Ordered By: Agustin Llanes on 03-22-2022 Bilirubin.indirect [Mass/Vol] 0.2 mg/dL [facility] Serum or plasma potassium me asurement (moles/volume)Ordered By: Agustin Llanes on 03-22-2022 Potassium [Moles/Vol] 4.5 mmol/L 3.5-5.1 [facility] Serum or plasma sodium measu rement (moles/volume)Ordered By: Agustin Llanes on 03-22-2022 Sodium [Moles/Vol] 138 mmol/L 136-146 [facility] Serum or plasma total biliru bin measurement (mass/volume)Ordered By: Agustin Llanes on 03-22-2022 Bilirubin [Mass/Vol] 0.5 mg/dL 0.3-1.2 [facility] Serum or plasma total carbon dioxide measurement (moles/volume)Ordered By: Agustin Llanes on 03-22-2022 CO2 [Moles/Vol] 26.9 mmol/L 22.0-30.0 [facility] Serum or plasma urea nitroge n measurement (mass/volume)Ordered By: Agustin Llanes on 03-22-2022 Urea nitrogen [Mass/Vol] 8 mg/dL 9-23 [facility] Specific gravity Auto test s trip (U) [Rel density]Ordered By: Agustin Llanes on 03-22-2022 Specific gravity (U) [Rel density] 1.011 1.001-1.03 0 [facility] Squamous epithelial cells de tection in urine sediment by light microscopyOrdered By: Agustin Llanes on 03-22-2022 Epithelial cells.squamous LM Ql (Urine sed) 1-2 [HPF] 0-2 [facility] Urine bacteria detection by automated methodOrdered By: Agustin Llanes on 03-22-2022 Bacteria Auto Ql (U) 1+ None Seen [facility] Urine clarity by refractomet ry automatedOrdered By: Agustin Llanes on 03-22-2022 Clarity Refractometry automated (U) Clear Clear [facility] Urine glucose measurement by automated test strip (mass/volume)Ordered By: Agustin Llanes on 03-22-2022 Glucose Auto test strip (U) [Mass/Vol] Normal mg/dL Normal [facility] Urine hemoglobin detection b y automated test stripOrdered By: Agustin Llanes on 03-22-2022 Hemoglobin Auto test strip Ql (U) Negative Negative [facility] Urine leukocyte esterase det ection by automated test stripOrdered By: Agustin Llanes on 03-22-2022 Leukocyte esterase Auto test strip Ql (U) 2+ Negative [facility] Urobilinogen Auto test strip (U) [Mass/Vol]Ordered By: Agustin Llanes on 03-22-2022 Urobilinogen (U) [Mass/Vol] Normal mg/dL Normal [facility] WBC Auto (Bld) [#/Vol]Ordere d By: Agustin Llanes on 03-22-2022 WBC (Bld) [#/Vol] 12.4 10*3/uL 3.8-11.6 [facility] pH Auto test strip (U)Ordere d By: Agustin Llanes on 03-22-2022 pH (U) 5.5 [pH] 5.0-9.0 [facility] AMYLASEon 03-19-2022 Amylase [Catalytic activity/Vol] 297 U/L Critically high 25-115 [facility] Comment on above: Performed By: #### L IPA, CMP, CRP, NAT #### [facility] [address] [place] [address] Dr. Keturah Fisher CBC AUTO DIFFon 03-19-2022 BASO # 0.1 103/ul Normal 0.0-0.1 [facility] Comment on above: Performed By: #### L IPA, CMP, CRP, NAT #### [facility] [address] [place] [address] Dr. Keturah Fisher Basophils/100 WBC (Bld) 0.6 % Normal 0.2-2.0 [facility] Comment on above: Performed By: #### L IPA, CMP, CRP, NAT #### [facility] [address] [address] [address] Keturah Fisher EO # 0.1 103/ul Normal 0.0-0.7 [facility] Comment on above: Performed By: #### L IPA, CMP, CRP, NAT #### [facility] [address] [place] [address] Dr. Keturah Fisher Eosinophils/100 WBC (Bld) 0.5 % Critically low 0.9-7.0 [facility] Comment on above: Performed By: #### L IPA, CMP, CRP, NAT #### [facility] [address] [address] [address] Keturah Fisher Erythrocyte distribution width (RBC) [Ratio] 13.4 % Normal 11.0-15.0 [facility] Comment on above: Performed By: #### L IPA, CMP, CRP, NAT #### [facility] [address] [place] [address] Dr. Keturah Fisher Hemoglobin (Bld) [Mass/Vol] 15.7 g/dL Normal 12.0-16.0 [facility] Comment on above: Performed By: #### L IPA, CMP, CRP, NAT #### [facility] [address] [place] [address] Dr. Keturah Fisher IG # 0.06 10e3/ul Critically high 0.00-0.03 [facility] Comment on above: Performed By: #### L IPA, CMP, CRP, NAT #### [facility] [address] [place] [address] Dr. Keturah Fisher IG % 0.4 % Normal 0.0-0.5 [facility] Comment on above: Performed By: #### L IPA, CMP, CRP, NAT #### [facility] [address] [place] [address] Dr. Keturha Fisher LYMPH # 2.6 103/ul Normal 1.2-3.8 [facility] Comment on above: Performed By: #### L IPA, CMP, CRP, NAT #### [facility] [address] [place] [address] Dr. Keturah Fisher Lymphocytes/100 WBC (Bld) 18.1 % Critically low 20.5-60.0 [facility] Comment on above: Performed By: #### L IPA, CMP, CRP, NAT #### [facility] [address] [place] [address] Dr. Keturah Fisher MANUAL DIFF REQ NO Normal [facility] Comment on above: Performed By: #### L IPA, CMP, CRP, NAT #### [facility] [address] [place] [address] Dr. Keturah Fisher MCH (RBC) [Entitic mass] 32.4 pg Normal 26.7-34.0 [facility] Comment on above: Performed By: #### L IPA, CMP, CRP, NAT #### [facility] [address] [place] [address] Dr. Keturah Fisher MCHC (RBC) [Mass/Vol] 32.5 g/dL Normal 29.9-35.2 [facility] Comment on above: Performed By: #### L IPA, CMP, CRP, NAT #### [facility] [address] [address] [address] Keturah Fisher MCV (RBC) [Entitic vol] 99.8 fL Critically high 81.0-99.0 [facility] Comment on above: Performed By: #### L IPA, CMP, CRP, NAT #### [facility] [address] [place] [address] Dr. Keturah Fisher MONO # 0.9 103/ul Critically high 0.3-0.8 [facility] Comment on above: Performed By: #### L IPA, CMP, CRP, NAT #### [facility] [address] [address] [address] Keturah Fisher Monocytes/100 WBC (Bld) 5.9 % Normal 1.7-12.0 [facility] Comment on above: Performed By: #### L IPA, CMP, CRP, NAT #### [facility] [address] [place] [address] Dr. Keturah Fisher NEUT # 10.8 103/ul Critically high 1.4-6.5 [facility] Comment on above: Performed By: #### L IPA, CMP, CRP, NAT #### [facility] [address] [address] [address] Keturah Fisher Neutrophils/100 WBC (Bld) 74.5 % Normal 43.0-75.0 [facility] Comment on above: Performed By: #### L IPA, CMP, CRP, NAT #### [facility] [address] [address] [address] Keturah Fisher Platelet mean volume (Bld) [Entitic vol] 9.7 fL Normal 9.5-13.5 [facility] Comment on above: Performed By: #### L IPA, CMP, CRP, NAT #### [facility] [address] [address] [address] Keturah Fisher PLT 279 103/ul Normal 150-450 [facility] Comment on above: Performed By: #### L IPA, CMP, CRP, NAT #### [facility] [address] [address] [address] Keturah Fisher RBC 4.84 106/ul Normal 4.20-5.40 [facility] Comment on above: Performed By: #### L IPA, CMP, CRP, NAT #### [facility] [address] [address] [address] Keturah Fisher WBC 14.5 103/ul Critically high 4.0-11.0 [facility] Comment on above: Performed By: #### L IPA, CMP, CRP, NAT #### [facility] [address] [address] ABD/PELVIS WO CONon [...] by: AGUSTIN HIGHTOWER Date: 2022-03-19 19:10 Normal [facility] LIPASEon 03-19-2022 Lipase [Catalytic activity/Vol] 1573.0 U/L Critically high 73.0-393.0 [facility] Comment on above: Performed By: #### L IPA, CMP, CRP, NAT #### [facility] [address] [address] [address] Keturah Fisher PROF 14(COMP METB)on 023 Albumin [Mass/Vol] 4.3 g/dL Normal 3.4-5.0 [facility] Comment on above: Performed By: #### L IPA, CMP, CRP, NAT #### [facility] [address] [place] [address] Dr. Keturah Fisher Albumin/Globulin [Mass ratio] 1.1 {ratio} Normal [facility] Comment on above: Performed By: #### L IPA, CMP, CRP, NAT #### [facility] [address] [address] [address] Keturah Fisher ALP [Catalytic activity/Vol] 222 U/L Critically high 46-116 [facility] Comment on above: Performed By: #### L IPA, CMP, CRP, NAT #### [facility] [address] [address] [address] Keturah Fisher ALT [Catalytic activity/Vol] 18 U/L Normal 14-59 [facility] Comment on above: Performed By: #### L IPA, CMP, CRP, NAT #### [facility] [address] [place] [address] Dr. Keturah Fisher Anion gap [Moles/Vol] 10.7 mmol/L Normal [facility] Comment on above: Performed By: #### L IPA, CMP, CRP, NAT #### [facility] [address] [place] [address] Dr. Keturah Fisher AST [Catalytic activity/Vol] 19 U/L Normal 15-37 [facility] Comment on above: Performed By: #### L IPA, CMP, CRP, NAT #### [facility] [address] [place] [address] Dr. Keturah Fisher Bilirubin [Mass/Vol] 0.2 mg/dL Normal 0.2-1.0 [facility] Comment on above: Performed By: #### L IPA, CMP, CRP, NAT #### [facility] [address] [place] [address] Dr. Keturah Fisher Calcium [Mass/Vol] 10.2 mg/dL Critically high 8.5-10.1 [facility] Comment on above: Performed By: #### L IPA, CMP, CRP, NAT #### [facility] [address] [place] [address] Dr. Keturah Fisher Chloride [Moles/Vol] 101 mmol/L Normal 98-107 [facility] Comment on above: Performed By: #### L IPA, CMP, CRP, NAT #### [facility] [address] [place] [address] Dr. Keturah Fisher CO2 [Moles/Vol] 29.1 mmol/L Normal 21.0-32.0 [facility] Comment on above: Performed By: #### L IPA, CMP, CRP, NAT #### [facility] [address] [place] [address] Dr. Keturah Fisher Creatinine [Mass/Vol] 0.73 mg/dL Normal 0.55-1.02 [facility] Comment on above: Performed By: #### L IPA, CMP, CRP, NAT #### [facility] [address] [address] [address] Keturah Fisher EGFR-AF ITALIAN >60 Normal >=60 [facility] Comment on above: Performed By: #### L IPA, CMP, CRP, NAT #### [facility] [address] [address] [address] Keturah Fisher EGFR-NON AF ITALIAN >60 Normal >=60 [facility] Comment on above: Performed By: #### L IPA, CMP, CRP, NAT #### [facility] [address] [address] [address] Keturah Fisher Globulin (S) [Mass/Vol] 4.0 g/dL Normal [facility] Comment on above: Performed By: #### L IPA, CMP, CRP, NAT #### [facility] [address] [place] [address] Dr. Keturah Fisher Glucose [Mass/Vol] 92 mg/dL Normal 74-106 [facility] Comment on above: Performed By: #### L IPA, CMP, CRP, NAT #### [facility] [address] [address] [address] Keturah Fisher Potassium [Moles/Vol] 3.8 mmol/L Normal 3.5-5.1 [facility] Comment on above: Performed By: #### L IPA, CMP, CRP, NAT #### [facility] [address] [address] [address] Keturah Fisher Protein [Mass/Vol] 8.3 g/dL Critically high 6.4-8.2 [facility] Comment on above: Performed By: #### L IPA, CMP, CRP, NAT #### [facility] [address] [place] [address] Dr. Keturah Fisher Sodium [Moles/Vol] 137 mmol/L Normal 136-145 [facility] Comment on above: Performed By: #### L IPA, CMP, CRP, NAT #### [facility] [address] [place] [address] Dr. Keturah Fisher Urea nitrogen [Mass/Vol] 10.0 mg/dL Normal 7.0-18.0 [facility] Comment on above: Performed By: #### L IPA, CMP, CRP, NAT #### [facility] [address] [address] [address] Keturah Fisher Urea nitrogen/Creatinine [Mass ratio] 13.7 mg/mg Normal [facility] Comment on above: Performed By: #### L IPA, CMP, CRP, NAT #### [facility] [address] [address] [address] Keturah Fisher PROTIMEon 03-19-2022 INR Coag (PPP) [Relative time] {INR} Normal [facility] Comment on above: Performed By: #### P TT, PT ####[facility] [id number] [address]Dr. Keturah Fisher INR GUIDELINES SEE BELOW Normal [facility] Comment on above: Result Comment: KARLY RED INR: 2.0 - 3.0 CONDITIONS NOT LISTED BELOW 2.5 - 3.5 FOR PROSTHETIC HEART VALVE REPLACEMENT 2.5 - 3.5 RECURRENT THROMBOSIS Performed By: #### P TT, PT ####[facility] [id number] [address]Dr. Keturah Fisher PT Coag (PPP) [Time] 9.4 s Normal 9.0-11.6 [facility] Comment on above: Performed By: #### P TT, PT ####[facility] [id number] [address]Dr. Keturah Fisher PTTon 03-19-2022 aPTT Coag (Bld) [Time] 26.1 s Normal 22.3-36.2 [facility] Comment on above: Performed By: #### P TT, PT ####[facility] [id number] [address]Dr. Keturah Fisher TROPONIN, HIGH SENSITIVITYon 03-19-2022 HSTROP 4.0 pg/mL Normal 4.0-51.3 [facility] Comment on above: Result Comment: CUT- OFF POINTS HAVE BEEN ESTABLISHED BASED ON THE FOURTH UNIVERSAL DEFINITIONS OF MYOCARDIAL INFARCTION. THE UPPER REFERENCE LIMIT (URL) OF TROPONIN, DEFINED THE 99TH PERCENTILE OF cTnI DISTRIBUTION IN A REFERENCE POPULATION, HAS BEEN CONFIRMED THE DECISION THRESHOLD FOR DC DIAGNOSIS. Performed By: #### L IPA, CMP, CRP, NAT #### [facility] [address] [address] [address] 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 Mental Status [...] si (more content not included)... LAB, [facility] Radiology Study observation (narrative) [facility] BONE DENSITY AXIAL (HIP, PEL VIS, SPINE)on [...] interpreted this study is a Certified Clinical Polysomnographic Tech by the International Society of Clinical Densitometry Maulik Reed M.D., CCD. OLOGY EXAM: BONE DENSITY A XIAL (HIP, PELVIS, SPINE) 01/27/2022 15:34 PM TECHNIQUE: DXA scanning using a kajeetigCommunication Specialist Limited Advance bone densitometer at the [facility] was performed on 01/27/2022 15:34 PM CLINICAL [...] 15:34 PM TECHNIQUE: DXA scanning using a kajeetigy Advance bone densitometer at the [facility] was performed on 01/27/2022 15:34 PM CLINICAL [...] interpreted this study is a Certified Clinical Polysomnographic Tech by the International Society of Clinical Densitometry Maulik Reed M.D., CCD. [facility] Radiology Study observation (narrative) [facility] BONE DENSITY AXIAL (HIP, PEL VIS, SPINE)Ordered By: Maulik Reed on 01-27-2022 [facility] Work Phone: CBC AUTO DIFFon 01-15-2022 BASO # 0.1 103/ul Normal 0.0-0.1 [facility] Comment on above: Performed By: #### C BC ####[facility] [id number] [address]Dr. Keturah Phillip Basophils/100 WBC (Bld) 0.9 % Normal 0.2-2.0 [facility] Comment on above: Performed By: #### C BC ####[facility] [address] [place], [place] [address]Dr. Elisaeli Fisher EO # 0.2 103/ul Normal 0.0-0.7 [facility] Comment on above: Performed By: #### C BC ####[facility] [address] [place], [place] [address]Dr. Keturah Fisher Eosinophils/100 WBC (Bld) 2.8 % Normal 0.9-7.0 [facility] Comment on above: Performed By: #### C BC ####[facility] [address] [place], [place] [address]Dr. Keturah Fisher Erythrocyte distribution width (RBC) [Ratio] 12.9 % Normal 11.0-15.0 [facility] Comment on above: Performed By: #### C BC ####[facility] [address] [place], [place] [address]Dr. Keturah Fisher Hematocrit (Bld) [Volume fraction] 41.7 % Normal 36.0-48.0 [facility] Comment on above: Performed By: #### C BC ####[facility] [address] [place], [place] [address]Dr. Keturah Fisher Hemoglobin (Bld) [Mass/Vol] 14.0 g/dL Normal 12.0-16.0 [facility] Comment on above: Performed By: #### C BC ####[facility] [address] [place], [place] [address]Dr. Keturah Fisher IG # 0.01 10e3/ul Normal 0.00-0.03 [facility] Comment on above: Performed By: #### C BC ####[facility] [address] [place] [id number]. Keturah Fisher IG % 0.1 % Normal 0.0-0.5 [facility] Comment on above: Performed By: #### C BC ####[facility] [address] [place] [id number]. Keturah Fisher LYMPH # 2.4 103/ul Normal 1.2-3.8 [facility] Comment on above: Performed By: #### C BC ####[facility] [address] [place] [id number]. Keturah Fisher Lymphocytes/100 WBC (Bld) 32.0 % Normal 20.5-60.0 [facility] Comment on above: Performed By: #### C BC ####[facility] [address] [place] [id number]. Keturah Fisher MANUAL DIFF REQ NO Normal [facility] Comment on above: Performed By: #### C BC ####[facility] [address] [place] [id number]. Keturah Fisher MCH (RBC) [Entitic mass] 32.6 pg Normal 26.7-34.0 [facility] Comment on above: Performed By: #### C BC ####[facility] [address] [place] [id number]. Keturah Fisher MCHC (RBC) [Mass/Vol] 33.6 g/dL Normal 29.9-35.2 [facility] Comment on above: Performed By: #### C BC ####[facility] [address] [place], [place] [id number]. Keturah Fisher MCV (RBC) [Entitic vol] 97.0 fL Normal 81.0-99.0 [facility] Comment on above: Performed By: #### C BC ####[facility] [address] [place] [id number]. Keturah Phillip MONO # 0.7 103/ul Normal 0.3-0.8 [facility] Comment on above: Performed By: #### C BC ####[facility] [address] [place] [id number]. Keturah Fisher Monocytes/100 WBC (Bld) 9.5 % Normal 1.7-12.0 [facility] Comment on above: Performed By: #### C BC ####[facility] [address] [place] [id number]. Keturah Fisher NEUT # 4.1 103/ul Normal 1.4-6.5 [facility] Comment on above: Performed By: #### C BC ####[facility] [address] [place] [id number]. Keturah Fisher Neutrophils/100 WBC (Bld) 54.7 % Normal 43.0-75.0 [facility] Comment on above: Performed By: #### C BC ####[facility] [address] [place] [id number]. Keturah Fisher Platelet mean volume (Bld) [Entitic vol] 9.6 fL Normal 9.5-13.5 [facility] Comment on above: Performed By: #### C BC ####[facility] [address] [place] [id number]. Keturah Fisher PLT 235 103/ul Normal 150-450 [facility] Comment on above: Performed By: #### C BC ####[facility] [address] [place] [id number]. Keturah Fisher RBC 4.30 106/ul Normal 4.20-5.40 [facility] Comment on above: Performed By: #### C BC ####[facility] [address] [place] [id number]. Keturah Fisher WBC 7.6 103/ul Normal 4.0-11.0 [facility] Comment on above: Performed By: #### C BC ####[facility] [address] [place] [id number]. Keturah Fisher ER URINE PROFILEon 2 Bilirubin Ql (U) Negative Normal NEGATIVE [facility] Comment on above: Performed By: #### L IPA, CMP, CRP, NAT #### [facility] [address] [place] [address] [address] Keturah Fisher Clarity (U) CLEAR Normal CLEAR [facility] Comment on above: Performed By: #### L IPA, CMP, CRP, NAT #### [facility] [address] [address] [address] Keturah Fisher Color (U) YELLOW Normal YELLOW [facility] Comment on above: Performed By: #### L IPA, CMP, CRP, NAT #### [facility] [address] [address] [address] Keturah Fisher ERUAHD A micrscopic examina tion will be performed if indicated. Normal [facility] Comment on above: Performed By: #### L IPA, CMP, CRP, NAT #### [facility] Laboratory [address] [place] [address] Dr. Keturah Fisher Glucose Ql (U) Negative Normal NEGATIVE [facility] Comment on above: Performed By: #### L IPA, CMP, CRP, NAT #### [facility] [address] [place] [address] Dr. Keturah Fisher Hemoglobin Ql (U) Negative Normal NEGATIVE [facility] Comment on above: Performed By: #### L IPA, CMP, CRP, NAT #### [facility] [address] [place] [address] Dr. Keturah Fisher Ketones Ql (U) Negative Normal NEGATIVE [facility] Comment on above: Performed By: #### L IPA, CMP, CRP, NAT #### [facility] [address] [address] [address] Keturah Fisher LEUKOCYTES Negative Normal NEGATIVE [facility] Comment on above: Performed By: #### L IPA, CMP, CRP, NAT #### [facility] [address] [address] [address] Keturah Fisher Nitrite Ql (U) Negative Normal NEGATIVE [facility] Comment on above: Performed By: #### L IPA, CMP, CRP, NAT #### [facility] [address] [place] [address] [address] Keturah Fisher pH (U) 5.5 [pH] Normal 5-9 [facility] Comment on above: Performed By: #### L IPA, CMP, CRP, NAT #### [facility] [address] [address] [address] Keturah Fisher SPEC GRAVITY >=1.030 Abnormal 1.005-<=1. 025 [facility] Comment on above: Performed By: #### L IPA, CMP, CRP, NAT #### [facility] [address] [place] [address] Dr. Keturah Fisher UA PROTEIN Negative Normal NEGATIVE/ TRACE [facility] Comment on above: Performed By: #### L IPA, CMP, CRP, NAT #### [facility] [address] [place] [address] Dr. Keturah Fisher UR MICRO IND NOT INDICATED Normal [facility] Comment on above: Performed By: #### L IPA, CMP, CRP, NAT #### [facility] [address] [place] [address] Dr. Keturah Fisher Urobilinogen Qn (U) 0.2 {Marizol'U}/dL Normal 0.2 - 1. 0 [facility] Comment on above: Performed By: #### L IPA, CMP, CRP, NAT #### [facility] [address] [place] [address] Dr. Keturah Fisher LIPASEon 01-15-2022 Lipase [Catalytic activity/Vol] 572.0 U/L Critically high 73.0-393.0 [facility] Comment on above: Performed By: #### C BC #### [facility] [address] [place] [address] Dr. Keturah Fisher URon 01-15-2022 , QUAL Negative Normal NEGATIVE [facility] Comment on above: Performed By: #### L IPA, CMP, CRP, NAT #### [facility] [address] [place] [address] Dr. Keturah Fisher PROF 14(COMP METB)on 022 Albumin [Mass/Vol] 3.8 g/dL Normal 3.4-5.0 [facility] Comment on above: Performed By: #### C BC #### [facility] [address] [place] [address] Dr. Keturah Fisher Albumin/Globulin [Mass ratio] 1.1 {ratio} Normal [facility] Comment on above: Performed By: #### C BC #### [facility] [address] [place] [address] Dr. Keturah Fisher ALP [Catalytic activity/Vol] 151 U/L Critically high 46-116 [facility] Comment on above: Performed By: #### C BC #### [facility] [address] [place] [address] Dr. Keturah Fisher ALT [Catalytic activity/Vol] 14 U/L Normal 14-59 [facility] Comment on above: Performed By: #### C BC #### [facility] [address] [place] [address] Dr. Keturah Fisher Anion gap [Moles/Vol] 5.5 mmol/L Normal [facility] Comment on above: Performed By: #### C BC #### [facility] [address] [place] [address] Dr. Keturah Fisher AST [Catalytic activity/Vol] 16 U/L Normal 15-37 [facility] Comment on above: Performed By: #### C BC #### [facility] [address] [place] [address] Dr. Keturah Fisher Bilirubin [Mass/Vol] 0.1 mg/dL Critically low 0.2-1.0 [facility] Comment on above: Performed By: #### C BC #### [facility] [address] [place] [address] Dr. Keturah Fisher Calcium [Mass/Vol] 9.5 mg/dL Normal 8.5-10.1 [facility] Comment on above: Performed By: #### C BC #### [facility] [address] [place] [address] Dr. Keturah Fisher Chloride [Moles/Vol] 105 mmol/L Normal 98-107 [facility] Comment on above: Performed By: #### C BC #### [facility] [address] [place] [address] Dr. Keturah Fisher CO2 [Moles/Vol] 30.0 mmol/L Normal 21.0-32.0 [facility] Comment on above: Performed By: #### C BC #### [facility] [address] [address] [address] Keturah Fisher Creatinine [Mass/Vol] 0.90 mg/dL Normal 0.55-1.02 [facility] Comment on above: Performed By: #### C BC #### [facility] [address] [place] [address] [address] Keturah Fisher EGFR-AF ITALIAN >60 Normal >=60 [facility] Comment on above: Performed By: #### C BC #### [facility] [address] [place] [address] [address] Keturah Fisher EGFR-NON AF ITALIAN >60 Normal >=60 [facility] Comment on above: Performed By: #### C BC #### [facility] [address] [place] [address] Dr. Keturah Fisher Globulin (S) [Mass/Vol] 3.4 g/dL Normal [facility] Comment on above: Performed By: #### C BC #### [facility] [address] [place] [address] Dr. Keturah Fisher Glucose [Mass/Vol] 82 mg/dL Normal 74-106 [facility] Comment on above: Performed By: #### C BC #### [facility] [address] [place] [address] Dr. Keturah Fisher Potassium [Moles/Vol] 3.5 mmol/L Normal 3.5-5.1 [facility] Comment on above: Performed By: #### C BC #### [facility] [address] [place] [address] Dr. Keturah Fisher Protein [Mass/Vol] 7.2 g/dL Normal 6.4-8.2 [facility] Comment on above: Performed By: #### C BC #### [facility] [address] [address] [address] Keturah Fisher Sodium [Moles/Vol] 137 mmol/L Normal 136-145 [facility] Comment on above: Performed By: #### C BC #### [facility] [address] [place] [address] Dr. Keturah Fisher Urea nitrogen [Mass/Vol] 12.0 mg/dL Normal 7.0-18.0 [facility] Comment on above: Performed By: #### C BC #### [facility] [address] [place] [address] Dr. Keturah Fisher Urea nitrogen/Creatinine [Mass ratio] 13.3 mg/mg Normal [facility] Comment on above: Performed By: #### C BC #### [facility] [address] [place] [address] Dr. Keturah Fisher AMYLASEon 12-13-2021 Amylase [Catalytic activity/Vol] 268 U/L Critically high 25-115 [facility] Comment on above: Performed By: #### L IPA, CMP, CRP, NAT #### [facility] [address] [place] [address] Dr. Keturah Fisher CBC AUTO DIFFon 12-13-2021 BASO # 0.1 103/ul Normal 0.0-0.1 [facility] Comment on above: Performed By: #### L IPA, CMP, CRP, NAT #### [facility] [address] [place] [address] Dr. Keturah Fisher Basophils/100 WBC (Bld) 0.6 % Normal 0.2-2.0 [facility] Comment on above: Performed By: #### L IPA, CMP, CRP, NAT #### [facility] [address] [place] [address] Dr. Keturah Fisher EO # 0.1 103/ul Normal 0.0-0.7 [facility] Comment on above: Performed By: #### L IPA, CMP, CRP, NAT #### [facility] [address] [place] [address] Dr. Keturah Fisher Eosinophils/100 WBC (Bld) 1.2 % Normal 0.9-7.0 [facility] Comment on above: Performed By: #### L IPA, CMP, CRP, NAT #### [facility] [address] [place] [address] Dr. Keturah Fisher Erythrocyte distribution width (RBC) [Ratio] 13.2 % Normal 11.0-15.0 [facility] Comment on above: Performed By: #### L IPA, CMP, CRP, NAT #### [facility] [address] [place] [address] Dr. Keturah Fisher Hematocrit (Bld) [Volume fraction] 44.7 % Normal 36.0-48.0 [facility] Comment on above: Performed By: #### L IPA, CMP, CRP, NAT #### [facility] [address] [place] [address] Dr. Keturah Fisher Hemoglobin (Bld) [Mass/Vol] 14.7 g/dL Normal 12.0-16.0 [facility] Comment on above: Performed By: #### L IPA, CMP, CRP, NAT #### [facility] [address] [place] [address] Dr. Keturah Fisher IG # 0.03 10e3/ul Normal 0.00-0.03 [facility] Comment on above: Performed By: #### L IPA, CMP, CRP, NAT #### [facility] [address] [place] [address] Dr. Keturah Fisher IG % 0.3 % Normal 0.0-0.5 [facility] Comment on above: Performed By: #### L IPA, CMP, CRP, NAT #### [facility] [address] [place] [address] Dr. Keturah Fisher LYMPH # 3.6 103/ul Normal 1.2-3.8 [facility] Comment on above: Performed By: #### L IPA, CMP, CRP, NAT #### [facility] [address] [place] [address] Dr. Keturah Fisher Lymphocytes/100 WBC (Bld) 32.7 % Normal 20.5-60.0 [facility] Comment on above: Performed By: #### L IPA, CMP, CRP, NAT #### [facility] [address] [place] [address] Dr. Keturah Fisher MANUAL DIFF REQ NO Normal [facility] Comment on above: Performed By: #### L IPA, CMP, CRP, NAT #### [facility] [address] [place] [address] Dr. Keturah Fisher MCH (RBC) [Entitic mass] 32.2 pg Normal 26.7-34.0 [facility] Comment on above: Performed By: #### L IPA, CMP, CRP, NAT #### [facility] [address] [place] [address] Dr. Keturah Fisher MCHC (RBC) [Mass/Vol] 32.9 g/dL Normal 29.9-35.2 [facility] Comment on above: Performed By: #### L IPA, CMP, CRP, NAT #### [facility] [address] [place] [address] Dr. Keturah Fisher MCV (RBC) [Entitic vol] 98.0 fL Normal 81.0-99.0 [facility] Comment on above: Performed By: #### L IPA, CMP, CRP, NAT #### [facility] [address] [place] [address] Dr. Keturah Fisher MONO # 1.1 103/ul Critically high 0.3-0.8 [facility] Comment on above: Performed By: #### L IPA, CMP, CRP, NAT #### [facility] [address] [place] [address] Dr. Keturah Fisher Monocytes/100 WBC (Bld) 9.7 % Normal 1.7-12.0 [facility] Comment on above: Performed By: #### L IPA, CMP, CRP, NAT #### [facility] [address] [place] [address] Dr. Keturah Fisher NEUT # 6.1 103/ul Normal 1.4-6.5 [facility] Comment on above: Performed By: #### L IPA, CMP, CRP, NAT #### [facility] [address] [place] [address] Dr. Keturah Fisher Neutrophils/100 WBC (Bld) 55.5 % Normal 43.0-75.0 [facility] Comment on above: Performed By: #### L IPA, CMP, CRP, NAT #### [facility] [address] [place] [address] Dr. Keturah Fisher Platelet mean volume (Bld) [Entitic vol] 9.7 fL Normal 9.5-13.5 [facility] Comment on above: Performed By: #### L IPA, CMP, CRP, NAT #### [facility] [address] [address] [address] Keturah Fisher PLT 274 103/ul Normal 150-450 [facility] Comment on above: Performed By: #### L IPA, CMP, CRP, NAT #### [facility] [address] [address] [address] Keturah Fisher RBC 4.56 106/ul Normal 4.20-5.40 [facility] Comment on above: Performed By: #### L IPA, CMP, CRP, NAT #### [facility] [address] [place] [address] Dr. Keturah Fisher WBC 10.9 103/ul Normal 4.0-11.0 [facility] Comment on above: Performed By: #### L IPA, CMP, CRP, NAT #### [facility] [address] [place] [address] Dr. Keturah Fisher CRPon 12-13-2021 CRP [Mass/Vol] mg/L Normal <=1.0 [facility] Comment on above: Performed By: #### L IPA, CMP, CRP, NAT #### [facility] [address] [place] [address] ABD/PELV W CONon [...] by: AGUSTIN HIGHTOWER Date: 2021-12-13 20:50 Normal [facility] LIPASEon 12-13-2021 Lipase [Catalytic activity/Vol] 1496.0 U/L Critically high 73.0-393.0 [facility] Comment on above: Performed By: #### L IPA, CMP, CRP, NAT #### [facility] [address] [place] [address] Dr. Keturah Fisher PROF 14(COMP METB)on 022 Albumin [Mass/Vol] 4.0 g/dL Normal 3.4-5.0 [facility] Comment on above: Performed By: #### L IPA, CMP, CRP, NAT #### [facility] [address] [place], [place] [address] Dr. Keturah Fisher Albumin/Globulin [Mass ratio] 1.0 {ratio} Normal [facility] Comment on above: Performed By: #### L IPA, CMP, CRP, NAT #### [facility] [address] [place], [place] [address] Dr. Keturah Fisher ALP [Catalytic activity/Vol] 166 U/L Critically high 46-116 [facility] Comment on above: Performed By: #### L IPA, CMP, CRP, NAT #### [facility] [address] [place] [address] Dr. Keturah Fisher ALT [Catalytic activity/Vol] 19 U/L Normal 14-59 [facility] Comment on above: Performed By: #### L IPA, CMP, CRP, NAT #### [facility] [address] [place] [address] Dr. Keturah Fisher Anion gap [Moles/Vol] 9.5 mmol/L Normal [facility] Comment on above: Performed By: #### L IPA, CMP, CRP, NAT #### [facility] [address] [place] [address] Dr. Keturah Fisher AST [Catalytic activity/Vol] 16 U/L Normal 15-37 [facility] Comment on above: Performed By: #### L IPA, CMP, CRP, NAT #### [facility] [address] [place] [address] Dr. Keturah Fisher Bilirubin [Mass/Vol] 0.1 mg/dL Critically low 0.2-1.0 [facility] Comment on above: Performed By: #### L IPA, CMP, CRP, NAT #### [facility] [address] [place] [address] Dr. Keturah Fisher Calcium [Mass/Vol] 9.6 mg/dL Normal 8.5-10.1 [facility] Comment on above: Performed By: #### L IPA, CMP, CRP, NAT #### [facility] [address] [place] [address] Dr. Keturah Fisher Chloride [Moles/Vol] 104 mmol/L Normal 98-107 [facility] Comment on above: Performed By: #### L IPA, CMP, CRP, NAT #### [facility] [address] [place] [address] Dr. Keturah Fisher CO2 [Moles/Vol] 29.7 mmol/L Normal 21.0-32.0 [facility] Comment on above: Performed By: #### L IPA, CMP, CRP, NAT #### [facility] [address] [address] [address] Keturah Fisher Creatinine [Mass/Vol] 0.85 mg/dL Normal 0.55-1.02 [facility] Comment on above: Performed By: #### L IPA, CMP, CRP, NAT #### [facility] [address] [address] [address] Keturah Fisher EGFR-AF ITALIAN >60 Normal >=60 [facility] Comment on above: Performed By: #### L IPA, CMP, CRP, NAT #### [facility] [address] [address] [address] Keturah Fisher EGFR-NON AF ITALIAN >60 Normal >=60 [facility] Comment on above: Performed By: #### L IPA, CMP, CRP, NAT #### [facility] [address] [address] [address] Keturah Fisher Globulin (S) [Mass/Vol] 3.9 g/dL Normal [facility] Comment on above: Performed By: #### L IPA, CMP, CRP, NAT #### [facility] [address] [address] [address] Keturah Fisher Glucose [Mass/Vol] 70 mg/dL Critically low 74-106 [facility] Comment on above: Performed By: #### L IPA, CMP, CRP, NAT #### [facility] [address] [address] [address] Keturah Fisher Potassium [Moles/Vol] 3.2 mmol/L Critically low 3.5-5.1 [facility] Comment on above: Performed By: #### L IPA, CMP, CRP, NAT #### [facility] [address] [address] [address] Keturah Fisher Protein [Mass/Vol] 7.9 g/dL Normal 6.4-8.2 [facility] Comment on above: Performed By: #### L IPA, CMP, CRP, NAT #### [facility] [address] [address] [address] Keturah Fisher Sodium [Moles/Vol] 140 mmol/L Normal 136-145 [facility] Comment on above: Performed By: #### L IPA, CMP, CRP, NAT #### [facility] [address] [place] [address] Dr. Keturah Fisher Urea nitrogen [Mass/Vol] 8.0 mg/dL Normal 7.0-18.0 [facility] Comment on above: Performed By: #### L IPA, CMP, CRP, NAT #### [facility] [address] [place] [address] Dr. Keturah Fisher Urea nitrogen/Creatinine [Mass ratio] 9.4 mg/mg Normal [facility] Comment on above: Performed By: #### L IPA, CMP, CRP, NAT #### [facility] [address] [place] [address] Dr. Keturah Fisher AMYLASEon 12-05-2021 Amylase [Catalytic activity/Vol] 223 U/L Critically high 25-115 [facility] Comment on above: Performed By: #### L IPA, CMP, CRP, NAT #### [facility] [address] [place] [address] Dr. Keturah Fisher CBC AUTO DIFFon 12-05-2021 BASO # 0.1 103/ul Normal 0.0-0.1 [facility] Comment on above: Performed By: #### C BC #### [facility] [address] [place] [address] Dr. Keturah Fisher Basophils/100 WBC (Bld) 0.7 % Normal 0.2-2.0 [facility] Comment on above: Performed By: #### C BC #### [facility] [address] [place] [address] Dr. Keturah Fisher EO # 0.2 103/ul Normal 0.0-0.7 [facility] Comment on above: Performed By: #### C BC #### [facility] [address] [place] [address] Dr. Keturah Fisher Eosinophils/100 WBC (Bld) 1.7 % Normal 0.9-7.0 [facility] Comment on above: Performed By: #### C BC #### [facility] [address] [place] [address] Dr. Keturah Fisher Erythrocyte distribution width (RBC) [Ratio] 13.0 % Normal 11.0-15.0 [facility] Comment on above: Performed By: #### C BC #### [facility] [address] [place] [address] Dr. Keturah Fisher Hematocrit (Bld) [Volume fraction] 44.9 % Normal 36.0-48.0 [facility] Comment on above: Performed By: #### C BC #### [facility] [address] [place] [address] Dr. Keturah Fisher Hemoglobin (Bld) [Mass/Vol] 15.1 g/dL Normal 12.0-16.0 [facility] Comment on above: Performed By: #### C BC #### [facility] [address] [place] [address] Dr. Keturah Fisher IG # 0.02 10e3/ul Normal 0.00-0.03 [facility] Comment on above: Performed By: #### C BC #### [facility] [address] [place] [address] Dr. Keturah Fisher IG % 0.2 % Normal 0.0-0.5 [facility] Comment on above: Performed By: #### C BC #### [facility] [address] [place] [address] Dr. Keturah Fisher LYMPH # 2.8 103/ul Normal 1.2-3.8 [facility] Comment on above: Performed By: #### C BC #### [facility] [address] [place] [address] Dr. Keturah Fisher Lymphocytes/100 WBC (Bld) 29.8 % Normal 20.5-60.0 [facility] Comment on above: Performed By: #### C BC #### [facility] [address] [place] [address] Dr. Keturah Fisher MANUAL DIFF REQ NO Normal [facility] Comment on above: Performed By: #### C BC #### [facility] [address] [place] [address] Dr. Keturah Fisher MCH (RBC) [Entitic mass] 32.4 pg Normal 26.7-34.0 [facility] Comment on above: Performed By: #### C BC #### [facility] [address] [place] [address] Dr. Keturah Fisher MCHC (RBC) [Mass/Vol] 33.6 g/dL Normal 29.9-35.2 [facility] Comment on above: Performed By: #### C BC #### [facility] [address] [place] [address] Dr. Keturah Fisher MCV (RBC) [Entitic vol] 96.4 fL Normal 81.0-99.0 [facility] Comment on above: Performed By: #### C BC #### [facility] [address] [place] [address] Dr. Keturah Fisher MONO # 0.6 103/ul Normal 0.3-0.8 [facility] Comment on above: Performed By: #### C BC #### [facility] [address] [place] [address] Dr. Keturah Fisher Monocytes/100 WBC (Bld) 6.3 % Normal 1.7-12.0 [facility] Comment on above: Performed By: #### C BC #### [facility] [address] [place] [address] Dr. Keturah Fisher NEUT # 5.7 103/ul Normal 1.4-6.5 [facility] Comment on above: Performed By: #### C BC #### [facility] [address] [place] [address] Dr. Keturah Fisher Neutrophils/100 WBC (Bld) 61.3 % Normal 43.0-75.0 [facility] Comment on above: Performed By: #### C BC #### [facility] [address] [place] [address] Dr. Keturah Fisher Platelet mean volume (Bld) [Entitic vol] 10.7 fL Normal 9.5-13.5 [facility] Comment on above: Performed By: #### C BC #### [facility] [address] [place] [address] Dr. Keturah Fisher PLT 217 103/ul Normal 150-450 [facility] Comment on above: Performed By: #### C BC #### [facility] [address] [place] [address] Dr. Keturah Fisher RBC 4.66 106/ul Normal 4.20-5.40 [facility] Comment on above: Performed By: #### C BC #### [facility] [address] [place] [address] Dr. Keturah Fisher WBC 9.2 103/ul Normal 4.0-11.0 [facility] Comment on above: Performed By: #### C BC #### [facility] [address] [place] [address] Dr. Keturah Fisher LIPASEon 12-05-2021 Lipase [Catalytic activity/Vol] 725.0 U/L Critically high 73.0-393.0 [facility] Comment on above: Performed By: #### L IPA, CMP, CRP, NAT #### [facility] [address] [place] [address] Dr. Keturah Fisher PROF 14(COMP METB)on 022 Albumin [Mass/Vol] 4.2 g/dL Normal 3.4-5.0 [facility] Comment on above: Performed By: #### L IPA, CMP, CRP, NAT #### [facility] [address] [place] [address] Dr. Keturah Fisher Albumin/Globulin [Mass ratio] 1.2 {ratio} Normal [facility] Comment on above: Performed By: #### L IPA, CMP, CRP, NAT #### [facility] [address] [place] [address] Dr. Keturah Fisher ALP [Catalytic activity/Vol] 158 U/L Critically high 46-116 [facility] Comment on above: Performed By: #### L IPA, CMP, CRP, NAT #### [facility] [address] [place] [address] Dr. Keturah Fisher ALT [Catalytic activity/Vol] 20 U/L Normal 14-59 [facility] Comment on above: Performed By: #### L IPA, CMP, CRP, NAT #### [facility] [address] [address] [address] Keturah Fisher Anion gap [Moles/Vol] 14.0 mmol/L Normal [facility] Comment on above: Performed By: #### L IPA, CMP, CRP, NAT #### [facility] [address] [address] [address] Keturah Fisher AST [Catalytic activity/Vol] 27 U/L Normal 15-37 [facility] Comment on above: Performed By: #### L IPA, CMP, CRP, NAT #### [facility] [address] [address] [address] Keturah Fisher Bilirubin [Mass/Vol] 0.3 mg/dL Normal 0.2-1.0 [facility] Comment on above: Performed By: #### L IPA, CMP, CRP, NAT #### [facility] [address] [place] [address] Dr. Keturah Fisher Calcium [Mass/Vol] 10.1 mg/dL Normal 8.5-10.1 [facility] Comment on above: Performed By: #### L IPA, CMP, CRP, NAT #### [facility] [address] [place] [address] Dr. Keturah Fisher Chloride [Moles/Vol] 105 mmol/L Normal 98-107 [facility] Comment on above: Performed By: #### L IPA, CMP, CRP, NAT #### [facility] [address] [address] [address] Keturah Fisher CO2 [Moles/Vol] 24.9 mmol/L Normal 21.0-32.0 [facility] Comment on above: Performed By: #### L IPA, CMP, CRP, NAT #### [facility] [address] [place] [address] Dr. Keturah Fisher Creatinine [Mass/Vol] 0.77 mg/dL Normal 0.55-1.02 [facility] Comment on above: Performed By: #### L IPA, CMP, CRP, NAT #### [facility] [address] [place] [address] Dr. Keturah Fisher EGFR-AF ITALIAN >60 Normal >=60 [facility] Comment on above: Performed By: #### L IPA, CMP, CRP, NAT #### [facility] [address] [place] [address] Dr. Keturah Fisher EGFR-NON AF ITALIAN >60 Normal >=60 [facility] Comment on above: Performed By: #### L IPA, CMP, CRP, NAT #### [facility] [address] [place] [address] Dr. Keturah Fisher Globulin (S) [Mass/Vol] 3.5 g/dL Normal [facility] Comment on above: Performed By: #### L IPA, CMP, CRP, NAT #### [facility] [address] [place] [address] Dr. Keturah Fisher Glucose [Mass/Vol] 91 mg/dL Normal 74-106 [facility] Comment on above: Performed By: #### L IPA, CMP, CRP, NAT #### [facility] [address] [place] [address] Dr. Keturah Fisher Potassium [Moles/Vol] 3.9 mmol/L Normal 3.5-5.1 [facility] Comment on above: Performed By: #### L IPA, CMP, CRP, NAT #### [facility] [address] [place] [address] Dr. Keturah Fisher Protein [Mass/Vol] 7.7 g/dL Normal 6.4-8.2 [facility] Comment on above: Performed By: #### L IPA, CMP, CRP, NAT #### [facility] [address] [place] [address] Dr. Keturah Fisher Sodium [Moles/Vol] 140 mmol/L Normal 136-145 [facility] Comment on above: Performed By: #### L IPA, CMP, CRP, NAT #### [facility] [address] [place] [address] Dr. Keturah Fisher Urea nitrogen [Mass/Vol] 8.0 mg/dL Normal 7.0-18.0 [facility] Comment on above: Performed By: #### L IPA, CMP, CRP, NAT #### [facility] [address] [place] [address] Dr. Keturah Fisher Urea nitrogen/Creatinine [Mass ratio] 10.4 mg/mg Normal [facility] Comment on above: Performed By: #### L IPA, CMP, CRP, NAT #### [facility] [address] [place] [address] Dr. Keturah Fisher AMYLASEon 10-11-2021 Amylase [Catalytic activity/Vol] 134 U/L Critically high 25-115 [facility] Comment on above: Performed By: #### C BC #### [facility] [address] [place] [address] Dr. Keturah Fisher CBC AUTO DIFFon 10-11-2021 BASO # 0.1 103/ul Normal 0.0-0.1 [facility] Comment on above: Performed By: #### L IPA, CMP, CRP, NAT #### [facility] [address] [place] [address] Dr. Keturah Fisher Basophils/100 WBC (Bld) 1.0 % Normal 0.2-2.0 [facility] Comment on above: Performed By: #### L IPA, CMP, CRP, NAT #### [facility] [address] [place] [address] Dr. Keturah Fisher EO # 0.2 103/ul Normal 0.0-0.7 [facility] Comment on above: Performed By: #### L IPA, CMP, CRP, NAT #### [facility] [address] [place] [address] Dr. Keturah Fisher Eosinophils/100 WBC (Bld) 2.0 % Normal 0.9-7.0 [facility] Comment on above: Performed By: #### L IPA, CMP, CRP, NAT #### [facility] [address] [place] [address] Dr. Keturah Fisher Erythrocyte distribution width (RBC) [Ratio] 13.2 % Normal 11.0-15.0 [facility] Comment on above: Performed By: #### L IPA, CMP, CRP, NAT #### [facility] [address] [place] [address] Dr. Keturah Fisher Hematocrit (Bld) [Volume fraction] 44.7 % Normal 36.0-48.0 [facility] Comment on above: Performed By: #### L IPA, CMP, CRP, NAT #### [facility] [address] [place] [address] Dr. Keturah Fisher Hemoglobin (Bld) [Mass/Vol] 15.0 g/dL Normal 12.0-16.0 [facility] Comment on above: Performed By: #### L IPA, CMP, CRP, NAT #### [facility] [address] [place] [address] Dr. Keturah Fisher IG # 0.02 10e3/ul Normal 0.00-0.03 [facility] Comment on above: Performed By: #### L IPA, CMP, CRP, NAT #### [facility] [address] [place] [address] Dr. Keturah Fisher IG % 0.2 % Normal 0.0-0.5 [facility] Comment on above: Performed By: #### L IPA, CMP, CRP, NAT #### [facility] [address] [place] [address] Dr. Keturah Fisher LYMPH # 4.1 103/ul Critically high 1.2-3.8 [facility] Comment on above: Performed By: #### L IPA, CMP, CRP, NAT #### [facility] [address] [place] [address] Dr. Keturah Fisher Lymphocytes/100 WBC (Bld) 38.9 % Normal 20.5-60.0 [facility] Comment on above: Performed By: #### L IPA, CMP, CRP, NAT #### [facility] [address] [place] [address] Dr. Keturah Fisher MANUAL DIFF REQ NO Normal [facility] Comment on above: Performed By: #### L IPA, CMP, CRP, NAT #### [facility] [address] [place] [address] Dr. Keturah Fisher MCH (RBC) [Entitic mass] 32.1 pg Normal 26.7-34.0 [facility] Comment on above: Performed By: #### L IPA, CMP, CRP, NAT #### [facility] [address] [place] [address] Dr. Keturah Fisher MCHC (RBC) [Mass/Vol] 33.6 g/dL Normal 29.9-35.2 [facility] Comment on above: Performed By: #### L IPA, CMP, CRP, NAT #### [facility] [address] [place] [address] Dr. Keturah Fisher MCV (RBC) [Entitic vol] 95.7 fL Normal 81.0-99.0 [facility] Comment on above: Performed By: #### L IPA, CMP, CRP, NAT #### [facility] [address] [place] [address] Dr. Keturah Fisher MONO # 0.9 103/ul Critically high 0.3-0.8 [facility] Comment on above: Performed By: #### L IPA, CMP, CRP, NAT #### [facility] [address] [place] [address] Dr. Keturah Fisher Monocytes/100 WBC (Bld) 8.8 % Normal 1.7-12.0 [facility] Comment on above: Performed By: #### L IPA, CMP, CRP, NAT #### [facility] [address] [place] [address] Dr. Keturah Fisher NEUT # 5.2 103/ul Normal 1.4-6.5 [facility] Comment on above: Performed By: #### L IPA, CMP, CRP, NAT #### [facility] [address] [place] [address] Dr. Keturah Fisher Neutrophils/100 WBC (Bld) 49.1 % Normal 43.0-75.0 [facility] Comment on above: Performed By: #### L IPA, CMP, CRP, NAT #### [facility] [address] [place] [address] Dr. Keturah Fisher Platelet mean volume (Bld) [Entitic vol] 9.8 fL Normal 9.5-13.5 [facility] Comment on above: Performed By: #### L IPA, CMP, CRP, NAT #### [facility] [address] [place] [address] Dr. Keturah Fisher PLT 299 103/ul Normal 150-450 [facility] Comment on above: Performed By: #### L IPA, CMP, CRP, NAT #### [facility] [address] [place] [address] Dr. Keturah Fisher RBC 4.67 106/ul Normal 4.20-5.40 [facility] Comment on above: Performed By: #### L IPA, CMP, CRP, NAT #### [facility] [address] [place] [address] Dr. Keturah Fisher WBC 10.5 103/ul Normal 4.0-11.0 [facility] Comment on above: Performed By: #### L IPA, CMP, CRP, NAT #### [facility] [address] [place] [address] Dr. Keturah Fisher LIPASEon 10-11-2021 Lipase [Catalytic activity/Vol] 240.0 U/L Normal 73.0-393.0 [facility] Comment on above: Performed By: #### C BC #### [facility] [address] [place] [address] Dr. Keturah Fisher PROF 14(COMP METB)on 022 Albumin [Mass/Vol] 4.3 g/dL Normal 3.4-5.0 [facility] Comment on above: Performed By: #### C BC #### [facility] [address] [place] [address] Dr. Keturah Fisher Albumin/Globulin [Mass ratio] 1.3 {ratio} Normal [facility] Comment on above: Performed By: #### C BC #### [facility] [address] [place] [address] Dr. Keturah Fisher ALP [Catalytic activity/Vol] 162 U/L Critically high 46-116 [facility] Comment on above: Performed By: #### C BC #### [facility] [address] [place] [address] Dr. Keturah Fisher ALT [Catalytic activity/Vol] 21 U/L Normal 14-59 [facility] Comment on above: Performed By: #### C BC #### [facility] [address] [address] [address] Keturah Fisher Anion gap [Moles/Vol] 15.1 mmol/L Normal [place] Comment on above: Performed By: #### C BC #### [facility] [address] [address] [address] Keturah iFsher AST [Catalytic activity/Vol] 16 U/L Normal 15-37 [facility] Comment on above: Performed By: #### C BC #### [facility] [address] [address] [address] Keturah Fisher Bilirubin [Mass/Vol] 0.2 mg/dL Normal 0.2-1.0 [facility] Comment on above: Performed By: #### C BC #### [facility] [address] [place] [address] Dr. Keturah Fisher Calcium [Mass/Vol] 9.6 mg/dL Normal 8.5-10.1 [facility] Comment on above: Performed By: #### C BC #### [facility] [address] [place] [address] Dr. Keturah Fisher Chloride [Moles/Vol] 104 mmol/L Normal 98-107 [facility] Comment on above: Performed By: #### C BC #### [facility] [address] [place] [address] Dr. Keturah Fisher CO2 [Moles/Vol] 24.6 mmol/L Normal 21.0-32.0 [facility] Comment on above: Performed By: #### C BC #### [facility] [address] [address] [address] Keturah Fisher Creatinine [Mass/Vol] 0.88 mg/dL Normal 0.55-1.02 [facility] Comment on above: Performed By: #### C BC #### [facility] [address] [place] [address] Dr. Keturah Fisher EGFR-AF ITALIAN >60 Normal >=60 [facility] Comment on above: Performed By: #### C BC #### [facility] [address] [place] [address] Dr. Keturah Fisher EGFR-NON AF ITALIAN >60 Normal >=60 [facility] Comment on above: Performed By: #### C BC #### [facility] [address] [place] [address] Dr. Keturah Fisher Globulin (S) [Mass/Vol] 3.3 g/dL Normal [facility] Comment on above: Performed By: #### C BC #### [facility] [address] [place] [address] Dr. Keturah Fisher Glucose [Mass/Vol] 111 mg/dL Critically high 74-106 [facility] Comment on above: Performed By: #### C BC #### [facility] [address] [place] [address] Dr. Keturah Fisher Potassium [Moles/Vol] 3.7 mmol/L Normal 3.5-5.1 [facility] Comment on above: Performed By: #### C BC #### [facility] [address] [place] [address] Dr. Keturah Fisher Protein [Mass/Vol] 7.6 g/dL Normal 6.4-8.2 [facility] Comment on above: Performed By: #### C BC #### [facility] [address] [place] [address] Dr. Keturah Fisher Sodium [Moles/Vol] 140 mmol/L Normal 136-145 [facility] Comment on above: Performed By: #### C BC #### [facility] [address] [place] [address] Dr. Keturah Fisher Urea nitrogen [Mass/Vol] 11.0 mg/dL Normal 7.0-18.0 [facility] Comment on above: Performed By: #### C BC #### [facility] [address] [place] [address] Dr. Keturah Fisher Urea nitrogen/Creatinine [Mass ratio] 12.5 mg/mg Normal [facility] Comment on above: Performed By: #### C BC #### [facility] [address] [place] [address] Dr. Keturah Fisher PROTIMEon 10-11-2021 INR Coag (PPP) [Relative time] 0.94 {INR} Normal [facility] Comment on above: Performed By: #### P T, PTT ####[facility] [id number] [id number]. Keturah Fisher INR GUIDELINES SEE BELOW Normal [facility] Comment on above: Result Comment: KARLY RED INR: 2.0 - 3.0 CONDITIONS NOT LISTED BELOW 2.5 - 3.5 FOR PROSTHETIC HEART VALVE REPLACEMENT 2.5 - 3.5 RECURRENT THROMBOSIS Performed By: #### P T, PTT ####[facility] [id number] [id number]. Keturah Fisher PT Coag (PPP) [Time] 10.2 s Normal 9.0-11.6 [facility] Comment on above: Performed By: #### P T, PTT ####[facility] [id number] [address]Dr. Keturah Fisher PTTon 10-11-2021 aPTT Coag (Bld) [Time] 28.0 s Normal 22.3-36.2 [place] Comment on above: Performed By: #### P T, PTT ####[facility] [id number] [id number]. Keturah Fisher Amphetamine Screen Ql (U)Ord ered By: Christa Lopez on 10-09-2021 Amphetamines Ql (U) Negative Negative [facility] Barbiturates [Presence] in U rineOrdered By: Christa Lopez on 10-09-2021 Barbiturates Ql (U) Negative Negative [facility] Basophils Auto (Bld) [#/Vol] Ordered By: Christa Lopez on 10-09-2021 Basophils (Bld) [#/Vol] 0.1 10*3/uL 0.0-0.2 [facility] Basophils/100 WBC Auto (Bld) Ordered By: Christa Lopez on 10-09-2021 Basophils/100 WBC (Bld) 0.9 % . [facility] Benzodiazepines [Presence] i n UrineOrdered By: Christa Lopez on 10-09-2021 Benzodiazepines Ql (U) Negative Negative [facility] Bilirubin Auto test strip Ql (U)Ordered By: Christa Lopez on 10-09-2021 Bilirubin Ql (U) Negative Negative [facility] Blood hemoglobin measurement (mass/volume)Ordered By: Christa Lopez on 10-09-2021 Hemoglobin (Bld) [Mass/Vol] 15.7 g/dL 11.8-15.4 [facility] Blood leukocytes automated c ount (number/volume)Ordered By: Christa Lopez on 10-09-2021 WBC (Bld) [#/Vol] 10.1 10*3/uL 4.5-11.0 [facility] Body fluid albumin measureme nt (mass/volume)Ordered By: Christa Lopez on 10-09-2021 Albumin (Body fld) [Mass/Vol] 4.5 g/dL 3.2-5.5 [facility] Cannabinoids [Presence] in U rine by Screen methodOrdered By: Christa Lopez on 10-09-2021 Cannabinoids Screen Ql (U) Negative Negative [facility] Comment on above: These are unconfirme d results and should not be used for legal purposes. Drug Cut-Off Concentration: AMPH 1000 ng/mL BAILEY 200 ng/mL JAKE 200 ng/mL COCM 300 ng/mL OP 300 ng/mL PCP 25 ng/mL THC 20 ng/mL Creatinine and Glomerular fi ltration rate.predicted panel (S/P/Bld)Ordered By: Christa Lopez on 10-09-2021 Creatinine [Mass/Vol] 0.85 mg/dL 0.44-1.03 [facility] Eosinophils Auto (Bld) [#/Vo l]Ordered By: Christa Lopez on 10-09-2021 Eosinophils (Bld) [#/Vol] 0.1 10*3/uL 0.0-0.45 [facility] Eosinophils/100 WBC Auto (Bl d)Ordered By: Christa Lopez on 10-09-2021 Eosinophils/100 WBC (Bld) 1.2 % . [facility] Erythrocyte distribution wid th Auto (RBC) [Ratio]Ordered By: Christa Lopez on 10-09-2021 Erythrocyte distribution width (RBC) [Ratio] 13.5 % 11.9-15.3 [facility] Estimated glomerular filtrat ion rate (GFR) non- AmericanOrdered By: Christa Lopez on 10-09-2021 GFR/1.73 sq M.predicted among non-blacks MDRD (S/P/Bld) [Vol rate/Area] > 60 mL/Min [facility] Globulin Calc (S) [Mass/Vol] Ordered By: Christa Lopez on 10-09-2021 Globulin (S) [Mass/Vol] 2.9 g/dL [facility] Hematocrit Auto (Bld) [Volum e fraction]Ordered By: Christa Lopez on 10-09-2021 Hematocrit (Bld) [Volume fraction] 47.1 % 34.0-46.4 [facility] Ketones Auto test strip (U) [Mass/Vol]Ordered By: Christa Lopez on 10-09-2021 Ketones (U) [Mass/Vol] Negative Negative [facility] - Chemistry and C hemistry - challengeOrdered By: Christa Lopez on 10-09-2021 Lipase [Catalytic activity/Vol] 242.0 U/L 22-51 [facility] - Drug toxicology Ordered By: Christa Lopez on 10-09-2021 Opiates Ql (U) Negative Negative [facility] - Hematology and Cell countsOrdered By: Christa Lopez on 10-09-2021 Nucleated RBC/100 WBC (Bld) [Ratio] 0.1 % 0-0.5 [facility] Lymphocytes Auto (Bld) [#/Vo l]Ordered By: Christa Lopez on 10-09-2021 Lymphocytes (Bld) [#/Vol] 2.6 10*3/uL 1.00-4.8 [facility] Lymphocytes/100 WBC Auto (Bl d)Ordered By: Christa Lopez on 10-09-2021 Lymphocytes/100 WBC (Bld) 26.0 % . [facility] MCH Auto (RBC) [Entitic mass ]Ordered By: Christa Lopez on 10-09-2021 MCH (RBC) [Entitic mass] 32.4 pg 24.7-34.3 [facility] MCHC Auto (RBC) [Mass/Vol]Or dered By: Christa Lopez on 10-09-2021 MCHC (RBC) [Mass/Vol] 33.3 g/dL 32.0-35.0 [facility] MCV Auto (RBC) [Entitic vol] Ordered By: Christa Lopez on 10-09-2021 MCV (RBC) [Entitic vol] 97.3 fL 80-100 [facility] Monocytes Auto (Bld) [#/Vol] Ordered By: Christa Lopez on 10-09-2021 Monocytes (Bld) [#/Vol] 0.8 10*3/uL 0.0-0.8 [facility] Monocytes/100 WBC Auto (Bld) Ordered By: Christa Lopez on 10-09-2021 Monocytes/100 WBC (Bld) 7.6 % . [facility] Neutrophils Auto (Bld) [#/Vo l]Ordered By: Christa Lopez on 10-09-2021 Neutrophils (Bld) [#/Vol] 6.5 10*3/uL 1.8-7.7 [facility] Neutrophils/100 WBC Auto (Bl d)Ordered By: Christa Lopez on 10-09-2021 Neutrophils/100 WBC (Bld) 64.3 % . [facility] No Panel InformationOrdered By: Christa Lopez on 10-09-2021 Estimated GFR () > 60 mL/Min [facility] Comment on above: GFR estimated refere nce range: According to KDOQI guidelines, <60 ml/min/1.73m2 is sufficient to diagnose a patient with chronic kidney disease. Pharmacy Creatinine Clearance (Chem 61.23 [facility] Phencyclidine Screen Ql (U)O rdered By: Christa Lopez on 10-09-2021 Phencyclidine Ql (U) Negative Negative [facility] Platelet mean volume Auto (B ld) [Entitic vol]Ordered By: Christa Lopez on 10-09-2021 Platelet mean volume (Bld) [Entitic vol] 8.5 fL 6.3-10.7 [facility] Platelets Auto (Bld) [#/Vol] Ordered By: Christa Lopez on 10-09-2021 Platelets (Bld) [#/Vol] 284 10*3/uL 150-450 [facility] Protein Auto test strip (U) [Mass/Vol]Ordered By: Christa Lopez on 10-09-2021 Protein (U) [Mass/Vol] Negative Negative [facility] Protein [Mass/volume] in Ser um or PlasmaOrdered By: Christa Lopez on 10-09-2021 Protein [Mass/Vol] 7.4 g/dL 6.1-7.9 [facility] RBC Auto (Bld) [#/Vol]Ordere d By: Christa Lopez on 10-09-2021 RBC (Bld) [#/Vol] 4.84 10*6/uL 3.60-5.00 [facility] Serum or plasma alanine hughes otransferase measurement without P-5'-P (enzymatic activiOrdered By: Christa Lopez on 10-09-2021 ALT No additional P-5'-P [Catalytic activity/Vol] 19 U/L 10-60 [facility] Serum or plasma albumin/glob ulin mass ratioOrdered By: Chrsita Lopez on 10-09-2021 Albumin/Globulin [Mass ratio] 1.6 {ratio} [facility] Serum or plasma alkaline jaqueline sphatase measurement (enzymatic activity/volume)Ordered By: Christa Lopez on 10-09-2021 ALP [Catalytic activity/Vol] 138 U/L 32-92 [facility] Serum or plasma aspartate am inotransferase measurement (enzymatic activity/volume)Ordered By: Christa Lopez on 10-09-2021 AST [Catalytic activity/Vol] 31 U/L 10-42 [facility] Serum or plasma calcium priscilla urement (mass/volume)Ordered By: Christa Lopez on 10-09-2021 Calcium [Mass/Vol] 10.3 mg/dL 8.2-10.2 [facility] Serum or plasma chloride daron surement (moles/volume)Ordered By: Christa Lopez on 10-09-2021 Chloride [Moles/Vol] 100 mmol/L 95-114 [facility] Serum or plasma glucose priscilla urement (mass/volume)Ordered By: Christa Lopez on 10-09-2021 Glucose [Mass/Vol] 75 mg/dL 70-100 [facility] Comment on above: ADA recommended refe rence range Random Glucose Reference Range is dependent on time and content of last meal. Glucose of more than 200 mg/dL in a nonstressed, ambulatory subject supports the diagnosis of Diabetes Mellitus. Serum or plasma potassium me asurement (moles/volume)Ordered By: Christa Lopez on 10-09-2021 Potassium [Moles/Vol] 3.9 mmol/L 3.5-5.1 [facility] Serum or plasma sodium measu rement (moles/volume)Ordered By: Christa Lopez on 10-09-2021 Sodium [Moles/Vol] 136 mmol/L 136-146 [facility] Serum or plasma total biliru bin measurement (mass/volume)Ordered By: Christa Lopez on 10-09-2021 Bilirubin [Mass/Vol] 0.4 mg/dL 0.3-1.2 [facility] Serum or plasma total carbon dioxide measurement (moles/volume)Ordered By: Christa Lopez on 10-09-2021 CO2 [Moles/Vol] 24.1 mmol/L 22.0-30.0 [facility] Serum or plasma urea nitroge n measurement (mass/volume)Ordered By: Christa Lopez on 10-09-2021 Urea nitrogen [Mass/Vol] 12 mg/dL 9-23 [facility] Troponin I.cardiac [Mass/vol ume] in Serum or Plasma by High sensitivity methodOrdered By: Christa Lopez on 10-09-2021 Troponin I.cardiac High sensitivity method [Mass/Vol] 3 pg/mL 0-15 [facility] Urine appearanceOrdered By: Christa Lopez on 10-09-2021 Appearance (U) Clear Clear [facility] Urine cocaine detectionOrder ed By: Christa Lopez on 10-09-2021 Cocaine Ql (U) Negative Negative [facility] Urine colorOrdered By: Christa Lopez on 10-09-2021 Color (U) Yellow Yellow [facility] Urine glucose measurement by automated test strip (mass/volume)Ordered By: Christa Lopez on 10-09-2021 Glucose Auto test strip (U) [Mass/Vol] Normal mg/dL Normal [facility] Urine hemoglobin detection b y automated test stripOrdered By: Christa Lopez on 10-09-2021 Hemoglobin Auto test strip Ql (U) Negative Negative [facility] Urine leukocyte esterase det ection by automated test stripOrdered By: Christa Lopez on 10-09-2021 Leukocyte esterase Auto test strip Ql (U) Negative Negative [facility] Urine nitrite detection by a utomated test stripOrdered By: Christa Lopez on 10-09-2021 Nitrite Auto test strip Ql (U) Negative Negative [facility] Urobilinogen Auto test strip (U) [Mass/Vol]Ordered By: Christa Lopez on 10-09-2021 Urobilinogen (U) [Mass/Vol] Normal mg/dL Normal [facility] pH Auto test strip (U)Ordere d By: Christa Lopez on 10-09-2021 pH (U) 1.025 [pH] 1.001-1.03 0 [facility] pH (U) 5.5 [pH] 5.0-9.0 [facility] Albumin [Mass/volume] in Ser um or PlasmaOrdered By: Reinaldo Amor on 10-04-2021 Albumin [Mass/Vol] 3.6 g/dL 3.2-5.5 [facility] Basophils Auto (Bld) [#/Vol] Ordered By: Reinaldo Amor on 10-04-2021 Basophils (Bld) [#/Vol] 0.1 10*3/uL 0.0-0.2 [facility] Basophils/100 WBC Auto (Bld) Ordered By: Reinaldo Amor on 10-04-2021 Basophils/100 WBC (Bld) 0.8 % . [facility] Bilirubin Auto test strip Ql (U)Ordered By: Reinaldo Amor on 10-04-2021 Bilirubin Ql (U) Negative Negative [facility] Blood hemoglobin measurement (mass/volume)Ordered By: Reinaldo Amor on 10-04-2021 Hemoglobin (Bld) [Mass/Vol] 13.9 g/dL 11.8-15.4 [facility] Blood leukocytes automated c ount (number/volume)Ordered By: Reinaldo Amor on 10-04-2021 WBC (Bld) [#/Vol] 10.4 10*3/uL 4.5-11.0 [facility] Creatinine and Glomerular fi ltration rate.predicted panel (S/P/Bld)Ordered By: Reinaldo Amor on 10-04-2021 Creatinine [Mass/Vol] 0.73 mg/dL 0.44-1.03 [facility] Direct bilirubin measurement Ordered By: Reinaldo Amor on 10-04-2021 Bilirubin.direct [Mass/Vol] mg/dL 0.0-0.4 [facility] Eosinophils Auto (Bld) [#/Vo l]Ordered By: Reinaldo Amor on 10-04-2021 Eosinophils (Bld) [#/Vol] 0.1 10*3/uL 0.0-0.45 [facility] Eosinophils/100 WBC Auto (Bl d)Ordered By: Reinaldo Amor on 10-04-2021 Eosinophils/100 WBC (Bld) 0.5 % . [facility] Erythrocyte distribution wid th Auto (RBC) [Ratio]Ordered By: Reinaldo Amor on 10-04-2021 Erythrocyte distribution width (RBC) [Ratio] 13.7 % 11.9-15.3 [facility] Estimated glomerular filtrat ion rate (GFR) non- AmericanOrdered By: Reinaldo Amor on 10-04-2021 GFR/1.73 sq M.predicted among non-blacks MDRD (S/P/Bld) [Vol rate/Area] > 60 mL/Min [facility] Globulin Calc (S) [Mass/Vol] Ordered By: Reinaldo Amor on 10-04-2021 Globulin (S) [Mass/Vol] 2.6 g/dL [facility] Hematocrit Auto (Bld) [Volum e fraction]Ordered By: Reinaldo Amor on 10-04-2021 Hematocrit (Bld) [Volume fraction] 41.1 % 34.0-46.4 [facility] Ketones Auto test strip (U) [Mass/Vol]Ordered By: Reinaldo Amor on 10-04-2021 Ketones (U) [Mass/Vol] Negative [facility] and C hemistry - challengeOrdered By: Reinaldo Amor on 10-04-2021 Lipase [Catalytic activity/Vol] 107.0 U/L 22-51 [facility] - Hematology and Cell countsOrdered By: Reinaldo Amor on 10-04-2021 Nucleated RBC/100 WBC (Bld) [Ratio] 0.1 % 0-0.5 [facility] Lymphocytes Auto (Bld) [#/Vo l]Ordered By: Reinaldo Amor on 10-04-2021 Lymphocytes (Bld) [#/Vol] 2.5 10*3/uL 1.00-4.8 [facility] Lymphocytes/100 WBC Auto (Bl d)Ordered By: Reinaldo Amor on 10-04-2021 Lymphocytes/100 WBC (Bld) 24.1 % . [facility] MCH Auto (RBC) [Entitic mass ]Ordered By: Reinaldo Amor on 10-04-2021 MCH (RBC) [Entitic mass] 32.6 pg 24.7-34.3 [facility] MCHC Auto (RBC) [Mass/Vol]Or dered By: Reinaldo Amor on 10-04-2021 MCHC (RBC) [Mass/Vol] 33.8 g/dL 32.0-35.0 [facility] MCV Auto (RBC) [Entitic vol] Ordered By: Reinaldo Amor on 10-04-2021 MCV (RBC) [Entitic vol] 96.5 fL 80-100 [facility] Monocytes Auto (Bld) [#/Vol] Ordered By: Reinaldo Amor on 10-04-2021 Monocytes (Bld) [#/Vol] 0.9 10*3/uL 0.0-0.8 [facility] Monocytes/100 WBC Auto (Bld) Ordered By: Reinaldo Amor on 10-04-2021 Monocytes/100 WBC (Bld) 8.4 % . [facility] Neutrophils Auto (Bld) [#/Vo l]Ordered By: Reinaldo Amor on 10-04-2021 Neutrophils (Bld) [#/Vol] 6.9 10*3/uL 1.8-7.7 [facility] Neutrophils/100 WBC Auto (Bl d)Ordered By: Reinaldo Amor on 10-04-2021 Neutrophils/100 WBC (Bld) 66.2 % . [facility] No Panel InformationOrdered By: Reinaldo Amor on 10-04-2021 Estimated GFR () > 60 mL/Min [facility] Comment on above: GFR estimated refere nce range: According to KDOQI guidelines, <60 ml/min/1.73m2 is sufficient to diagnose a patient with chronic kidney disease. Pharmacy Creatinine Clearance (Chem 71.30 [facility] Platelet mean volume Auto (B ld) [Entitic vol]Ordered By: Reinaldo Amor on 10-04-2021 Platelet mean volume (Bld) [Entitic vol] 8.0 fL 6.3-10.7 [facility] Platelets Auto (Bld) [#/Vol] Ordered By: Reinaldo Amor on 10-04-2021 Platelets (Bld) [#/Vol] 268 10*3/uL 150-450 [facility] Protein Auto test strip (U) [Mass/Vol]Ordered By: Reinaldo Amor on 10-04-2021 Protein (U) [Mass/Vol] Negative Negative [facility] Protein [Mass/volume] in Ser um or PlasmaOrdered By: Reinaldo Amor on 10-04-2021 Protein [Mass/Vol] 6.2 g/dL 6.1-7.9 [facility] RBC Auto (Bld) [#/Vol]Ordere d By: Reinaldo Amor on 10-04-2021 RBC (Bld) [#/Vol] 4.26 10*6/uL 3.60-5.00 [facility] Serum or plasma alanine hughes otransferase measurement without P-5'-P (enzymatic activiOrdered By: Reinalod Amor on 10-04-2021 ALT No additional P-5'-P [Catalytic activity/Vol] 15 U/L 10-60 [facility] Serum or plasma albumin/glob ulin mass ratioOrdered By: Reinaldo Amor on 10-04-2021 Albumin/Globulin [Mass ratio] 1.4 {ratio} [facility] Serum or plasma alkaline jaqueline sphatase measurement (enzymatic activity/volume)Ordered By: Reinaldo Amor on 10-04-2021 ALP [Catalytic activity/Vol] 103 U/L 32-92 [facility] Serum or plasma amylase priscilla urement (enzymatic activity/volume)Ordered By: Reinaldo Amor on 10-04-2021 Amylase [Catalytic activity/Vol] 134 U/L 28-100 [facility] Serum or plasma aspartate am inotransferase measurement (enzymatic activity/volume)Ordered By: Reinaldo Amor on 10-04-2021 AST [Catalytic activity/Vol] 20 U/L 10-42 [facility] Serum or plasma calcium priscilla urement (mass/volume)Ordered By: Reinaldo Amor on 10-04-2021 Calcium [Mass/Vol] 9.6 mg/dL 8.2-10.2 [facility] Serum or plasma chloride daron surement (moles/volume)Ordered By: Reinaldo Amor on 10-04-2021 Chloride [Moles/Vol] 103 mmol/L 95-114 [facility] Serum or plasma ethanol priscilla urement (mass/volume)Ordered By: Reinaldo Amor on 10-04-2021 Ethanol [Mass/Vol] mg/dL [facility] Ethanol [Mass/Vol] TNP [facility] Comment on above: Test not performed Serum or plasma glucose priscilla urement (mass/volume)Ordered By: Reinaldo Amor on 10-04-2021 Glucose [Mass/Vol] 120 mg/dL 70-100 [facility] Comment on above: ADA recommended refe rence range Random Glucose Reference Range is dependent on time and content of last meal. Glucose of more than 200 mg/dL in a nonstressed, ambulatory subject supports the diagnosis of Diabetes Mellitus. Serum or plasma non-glucuron idated bilirubin measurement (mass/volume)Ordered By: Reinaldo Amor on 10-04-2021 Bilirubin.indirect [Mass/Vol] [facility] Comment on above: Test not performed Serum or plasma potassium me asurement (moles/volume)Ordered By: Reinaldo Amor on 10-04-2021 Potassium [Moles/Vol] 3.7 mmol/L 3.5-5.1 [facility] Serum or plasma sodium measu rement (moles/volume)Ordered By: Reinaldo Amor on 10-04-2021 Sodium [Moles/Vol] 137 mmol/L 136-146 [facility] Serum or plasma total biliru bin measurement (mass/volume)Ordered By: Reinaldo Amor on 10-04-2021 Bilirubin [Mass/Vol] 0.5 mg/dL 0.3-1.2 [facility] Serum or plasma total carbon dioxide measurement (moles/volume)Ordered By: Reinaldo Amor on 10-04-2021 CO2 [Moles/Vol] 24.9 mmol/L 22.0-30.0 [facility] Serum or plasma urea nitroge n measurement (mass/volume)Ordered By: Reinaldo Amor on 10-04-2021 Urea nitrogen [Mass/Vol] 7 mg/dL 11-29 [facility] Urine appearanceOrdered By: Reinaldo Amor on 10-04-2021 Appearance (U) Clear Clear [facility] Urine colorOrdered By: Ml Amor on 10-04-2021 Color (U) Yellow Yellow [facility] Urine glucose measurement by automated test strip (mass/volume)Ordered By: Reinaldo Amor on 10-04-2021 Glucose Auto test strip (U) [Mass/Vol] Normal mg/dL Normal [facility] Urine hemoglobin detection b y automated test stripOrdered By: Reinaldo Amor on 10-04-2021 Hemoglobin Auto test strip Ql (U) Negative Negative [facility] Urine leukocyte esterase det ection by automated test stripOrdered By: Reinaldo Amor on 10-04-2021 Leukocyte esterase Auto test strip Ql (U) Negative Negative [facility] Urine nitrite detection by a utomated test stripOrdered By: Reinaldo Amor on 10-04-2021 Nitrite Auto test strip Ql (U) Negative Negative [facility] Urobilinogen Auto test strip (U) [Mass/Vol]Ordered By: Reinaldo Amor on 10-04-2021 Urobilinogen (U) [Mass/Vol] Normal mg/dL Normal [facility] pH Auto test strip (U)Ordere d By: Reinaldo Amor on 10-04-2021 pH (U) 1.030 [pH] 1.001-1.03 0 [facility] pH (U) 5.5 [pH] 5.0-9.0 [facility] Basophils Auto (Bld) [#/Vol] Ordered By: Reinaldo Amor on 09-25-2021 Basophils (Bld) [#/Vol] 0.1 10*3/uL 0.0-0.2 [facility] Basophils/100 WBC Auto (Bld) Ordered By: Reinaldo Amor on 09-25-2021 Basophils/100 WBC (Bld) 1.2 % . [facility] Blood hemoglobin measurement (mass/volume)Ordered By: Reinaldo Amor on 09-25-2021 Hemoglobin (Bld) [Mass/Vol] 14.2 g/dL 11.8-15.4 [facility] Blood leukocytes automated c ount (number/volume)Ordered By: Reinaldo Amor on 09-25-2021 WBC (Bld) [#/Vol] 9.3 10*3/uL 4.5-11.0 [facility] Body fluid albumin measureme nt (mass/volume)Ordered By: JOSE CASTILLO on 09-25-2021 Albumin (Body fld) [Mass/Vol] 4.3 g/dL 3.2-5.5 [facility] Creatinine and Glomerular fi ltration rate.predicted panel (S/P/Bld)Ordered By: PROVIDER JONATHAN on 09-25-2021 Creatinine [Mass/Vol] 0.82 mg/dL 0.44-1.03 [facility] Eosinophils Auto (Bld) [#/Vo l]Ordered By: Reinaldo Amor on 09-25-2021 Eosinophils (Bld) [#/Vol] 0.2 10*3/uL 0.0-0.45 [facility] Eosinophils/100 WBC Auto (Bl d)Ordered By: Reinaldo Amor on 09-25-2021 Eosinophils/100 WBC (Bld) 1.9 % . [facility] Erythrocyte distribution wid th Auto (RBC) [Ratio]Ordered By: Reinaldo Amor on 09-25-2021 Erythrocyte distribution width (RBC) [Ratio] 13.7 % 11.9-15.3 [facility] Estimated glomerular filtrat ion rate (GFR) non- AmericanOrdered By: PROVIDER JONATHAN on 09-25-2021 GFR/1.73 sq M.predicted among non-blacks MDRD (S/P/Bld) [Vol rate/Area] > 60 mL/Min [facility] Globulin Calc (S) [Mass/Vol] Ordered By: PROVIDER TEMMaty on 09-25-2021 Globulin (S) [Mass/Vol] 3.3 g/dL [facility] Hematocrit Auto (Bld) [Volum e fraction]Ordered By: Reinaldo Amor on 09-25-2021 Hematocrit (Bld) [Volume fraction] 42.1 % 34.0-46.4 [facility] - Chemistry and C hemistry - challengeOrdered By: Reinaldo Amor on 09-25-2021 Lipase [Catalytic activity/Vol] 64.0 U/L 22-51 [facility] - Hematology and Cell countsOrdered By: Reinaldo Amor on 09-25-2021 Nucleated RBC/100 WBC (Bld) [Ratio] 0.1 % 0-0.5 [facility] Lymphocytes Auto (Bld) [#/Vo l]Ordered By: Reinaldo Amor on 09-25-2021 Lymphocytes (Bld) [#/Vol] 2.6 10*3/uL 1.00-4.8 [facility] Lymphocytes/100 WBC Auto (Bl d)Ordered By: Reinaldo Amor on 09-25-2021 Lymphocytes/100 WBC (Bld) 28.1 % . [facility] MCH Auto (RBC) [Entitic mass ]Ordered By: Reinaldo Amor on 09-25-2021 MCH (RBC) [Entitic mass] 32.5 pg 24.7-34.3 [facility] MCHC Auto (RBC) [Mass/Vol]Or dered By: Reinaldo Amor on 09-25-2021 MCHC (RBC) [Mass/Vol] 33.7 g/dL 32.0-35.0 [facility] MCV Auto (RBC) [Entitic vol] Ordered By: Reinaldo Amor on 09-25-2021 MCV (RBC) [Entitic vol] 96.7 fL 80-100 [facility] Monocytes Auto (Bld) [#/Vol] Ordered By: Reinaldo Amor on 09-25-2021 Monocytes (Bld) [#/Vol] 0.8 10*3/uL 0.0-0.8 [facility] Monocytes/100 WBC Auto (Bld) Ordered By: Reinaldo Amor on 09-25-2021 Monocytes/100 WBC (Bld) 8.2 % . [facility] Neutrophils Auto (Bld) [#/Vo l]Ordered By: Reinaldo Amor on 09-25-2021 Neutrophils (Bld) [#/Vol] 5.6 10*3/uL 1.8-7.7 [facility] Neutrophils/100 WBC Auto (Bl d)Ordered By: Reinaldo Amor on 09-25-2021 Neutrophils/100 WBC (Bld) 60.6 % . [facility] No Panel InformationOrdered By: PROVIDER TEMP on 09-25-2021 Estimated GFR () > 60 mL/Min [facility] Comment on above: GFR estimated refere nce range: According to KDOQI guidelines, <60 ml/min/1.73m2 is sufficient to diagnose a patient with chronic kidney disease. Pharmacy Creatinine Clearance (Chem 63.47 [facility] Platelet mean volume Auto (B ld) [Entitic vol]Ordered By: Reinaldo Amor on 09-25-2021 Platelet mean volume (Bld) [Entitic vol] 8.6 fL 6.3-10.7 [facility] Platelets Auto (Bld) [#/Vol] Ordered By: Reinaldo Amor on 09-25-2021 Platelets (Bld) [#/Vol] 221 10*3/uL 150-450 [facility] Protein [Mass/volume] in Ser um or PlasmaOrdered By: PROVIDER TEMP on 09-25-2021 Protein [Mass/Vol] 7.6 g/dL 6.1-7.9 [facility] RBC Auto (Bld) [#/Vol]Ordere d By: Reinaldo Amor on 09-25-2021 RBC (Bld) [#/Vol] 4.35 10*6/uL 3.60-5.00 [facility] Serum or plasma alanine hughes otransferase measurement without P-5'-P (enzymatic activiOrdered By: PROVIDER TEMP on 09-25-2021 ALT No additional P-5'-P [Catalytic activity/Vol] 14 U/L 10-60 [facility] Serum or plasma albumin/glob ulin mass ratioOrdered By: PROVIDER TEMP on 09-25-2021 Albumin/Globulin [Mass ratio] 1.3 {ratio} [facility] Serum or plasma alkaline jaqueline sphatase measurement (enzymatic activity/volume)Ordered By: PROVIDER TEMP on 09-25-2021 ALP [Catalytic activity/Vol] 127 U/L 32-92 [facility] Serum or plasma amylase priscilla urement (enzymatic activity/volume)Ordered By: Reinaldo Amor on 09-25-2021 Amylase [Catalytic activity/Vol] 171 U/L 28-100 [facility] Serum or plasma aspartate am inotransferase measurement (enzymatic activity/volume)Ordered By: PROVIDER TEMP on 09-25-2021 AST [Catalytic activity/Vol] 21 U/L 10-42 [facility] Serum or plasma calcium priscilla urement (mass/volume)Ordered By: PROVIDER TEMP on 09-25-2021 Calcium [Mass/Vol] 10.1 mg/dL 8.2-10.2 [facility] Serum or plasma chloride daron surement (moles/volume)Ordered By: PROVIDER TEMP on 09-25-2021 Chloride [Moles/Vol] 103 mmol/L 95-114 [facility] Serum or plasma glucose priscilla urement (mass/volume)Ordered By: PROVIDER TEMP on 09-25-2021 Glucose [Mass/Vol] 93 mg/dL 70-100 [facility] Comment on above: ADA recommended refe rence range Random Glucose Reference Range is dependent on time and content of last meal. Glucose of more than 200 mg/dL in a nonstressed, ambulatory subject supports the diagnosis of Diabetes Mellitus. Serum or plasma potassium me asurement (moles/volume)Ordered By: PROVIDER TEMP on 09-25-2021 Potassium [Moles/Vol] 3.9 mmol/L 3.5-5.1 [facility] Serum or plasma sodium measu rement (moles/volume)Ordered By: PROVIDER TEMP on 09-25-2021 Sodium [Moles/Vol] 137 mmol/L 136-146 [facility] Serum or plasma total biliru bin measurement (mass/volume)Ordered By: PROVIDER TEMP on 09-25-2021 Bilirubin [Mass/Vol] 0.3 mg/dL 0.3-1.2 [facility] Serum or plasma total carbon dioxide measurement (moles/volume)Ordered By: PROVIDER TEMP on 09-25-2021 CO2 [Moles/Vol] 26.3 mmol/L 22.0-30.0 [facility] Serum or plasma urea nitroge n measurement (mass/volume)Ordered By: PROVIDER TEMP on 09-25-2021 Urea nitrogen [Mass/Vol] 8 mg/dL 9-23 [facility] AMYLASEon 09-17-2021 Amylase [Catalytic activity/Vol] 142 U/L Critically high 25-115 [facility] Comment on above: Performed By: #### A MY, CMP, LIPA ####[facility] [address] [place] [address]Dr. Keturah Fisher CBC AUTO DIFFon 09-17-2021 BASO # 0.1 103/ul Normal 0.0-0.1 [facility] Comment on above: Performed By: #### C BC ####[facility] [address] [place], [place] [address]Dr. Keturah Fisher Basophils/100 WBC (Bld) 0.7 % Normal 0.2-2.0 [facility] Comment on above: Performed By: #### C BC ####[facility] [address] [place], [place] [address]Dr. Keturah Fisher EO # 0.1 103/ul Normal 0.0-0.7 [facility] Comment on above: Performed By: #### C BC ####[facility] Tw[address] [place], [place] [address]Dr. Keturah Fisher Eosinophils/100 WBC (Bld) 1.3 % Normal 0.9-7.0 [facility] Comment on above: Performed By: #### C BC ####[facility] T[address] [place], [place] [address]Dr. Keturah Fisher Erythrocyte distribution width (RBC) [Ratio] 13.2 % Normal 11.0-15.0 [facility] Comment on above: Performed By: #### C BC ####[facility] [address] [place], [place] [address]Dr. Keturah Fisher Hematocrit (Bld) [Volume fraction] 43.7 % Normal 36.0-48.0 [facility] Comment on above: Performed By: #### C BC ####[facility] [address] [place] [id number]. Keturah Fisher Hemoglobin (Bld) [Mass/Vol] 14.7 g/dL Normal 12.0-16.0 [facility] Comment on above: Performed By: #### C BC ####[facility] [address] [place] [id number]. Keturah Fisher IG # 0.01 10e3/ul Normal 0.00-0.03 [facility] Comment on above: Performed By: #### C BC ####[facility] [address] [place] [id number]. Keturah Fisher IG % 0.1 % Normal 0.0-0.5 [facility] Comment on above: Performed By: #### C BC ####[facility] [address] [place] [address]Dr. Keturah Fisher LYMPH # 2.7 103/ul Normal 1.2-3.8 [facility] Comment on above: Performed By: #### C BC ####[facility] [address] [place] [id number]. Keturah Fisher Lymphocytes/100 WBC (Bld) 30.1 % Normal 20.5-60.0 [facility] Comment on above: Performed By: #### C BC ####[facility] [address] [place] [id number]. Keturah Fisher MANUAL DIFF REQ NO Normal [facility] Comment on above: Performed By: #### C BC ####[facility] [address] [place] [id number]. Keturah Fisher MCH (RBC) [Entitic mass] 32.4 pg Normal 26.7-34.0 [facility] Comment on above: Performed By: #### C BC ####[facility] [address] [place] [id number]. Keturah Fisher MCHC (RBC) [Mass/Vol] 33.6 g/dL Normal 29.9-35.2 [facility] Comment on above: Performed By: #### C BC ####[facility] [address] [place] [address]Dr. Keturah Fisher MCV (RBC) [Entitic vol] 96.3 fL Normal 81.0-99.0 [facility] Comment on above: Performed By: #### C BC ####[facility] [address] [place], [place] [id number]. Keturah Fisher MONO # 0.8 103/ul Normal 0.3-0.8 [facility] Comment on above: Performed By: #### C BC ####[facility] F[address] [place], [place] [address]Dr. Keturah Phillip Monocytes/100 WBC (Bld) 8.7 % Normal 1.7-12.0 [facility] Comment on above: Performed By: #### C BC ####[facility] [address] [place], [place] [address]Dr. Keturah Fisher NEUT # 5.4 103/ul Normal 1.4-6.5 [facility] Comment on above: Performed By: #### C BC ####[facility] [address] [place], [place] [address]Dr. Keturah Fisher Neutrophils/100 WBC (Bld) 59.1 % Normal 43.0-75.0 [facility] Comment on above: Performed By: #### C BC ####[facility] [address] [place], [place] [address]Dr. Keturah Fisher Platelet mean volume (Bld) [Entitic vol] 9.6 fL Normal 9.5-13.5 [facility] Comment on above: Performed By: #### C BC ####[facility] [address] [place], [place] [address]Dr. Keturah Fisher PLT 272 103/ul Normal 150-450 [facility] Comment on above: Performed By: #### C BC ####[facility] [address] [place], [place] [id number]. Elisaeli Phillip RBC 4.54 106/ul Normal 4.20-5.40 [facility] Comment on above: Performed By: #### C BC ####[facility] [address] [place], [place] [address]Dr. Keturah Fisher WBC 9.1 103/ul Normal 4.0-11.0 [facility] Comment on above: Performed By: #### C BC ####[facility] [address] [place], [place] [address]ZmDr. Keturah Fisher ETHANOL (BLD ALC)on 09-18-19 22 ALC NOTE NOTE: 80 mg/dl is th e legal limit for a blood alcohol level Normal [facility] Comment on above: Performed By: #### L IPA, CMP, CRP, NAT #### [facility] [address] [place] [address] [address] Keturah Fisher Ethanol [Mass/Vol] mg/dL Normal [facility] Comment on above: Performed By: #### L IPA, CMP, CRP, NAT #### [facility] [address] [place] [address] Dr. Keturah Fisher LIPASEon 09-17-2021 Lipase [Catalytic activity/Vol] 524.0 U/L Critically high 73.0-393.0 [facility] Comment on above: Performed By: #### C BC #### [facility] [address] [place] [address] Dr. Keturah Fisher PROF 14(COMP METB)on 022 Albumin [Mass/Vol] 3.9 g/dL Normal 3.4-5.0 [facility] Comment on above: Performed By: #### C BC #### [facility] [address] [place] [address] Dr. Keturah Fisher Albumin/Globulin [Mass ratio] 1.1 {ratio} Normal [facility] Comment on above: Performed By: #### C BC #### [facility] [address] [place] [address] Dr. Keturah Fisher ALP [Catalytic activity/Vol] 136 U/L Critically high 46-116 [facility] Comment on above: Performed By: #### C BC #### [facility] [address] [place] [address] Dr. Keturah Fisher ALT [Catalytic activity/Vol] 21 U/L Normal 14-59 [facility] Comment on above: Performed By: #### C BC #### [facility] [address] [place] [address] [address] Keturah Fisher Anion gap [Moles/Vol] 12.7 mmol/L Normal Th e [facility] Comment on above: Performed By: #### C BC #### [facility] [address] [place] [address] [address] Keturah Fisher AST [Catalytic activity/Vol] 16 U/L Normal 15-37 [facility] Comment on above: Performed By: #### C BC #### [facility] [address] [place] [address] [address] Keturah Fisher Bilirubin [Mass/Vol] 0.2 mg/dL Normal 0.2-1.0 [facility] Comment on above: Performed By: #### C BC #### [facility] [address] [place] [address] Dr. Keturah Fisher Calcium [Mass/Vol] 9.9 mg/dL Normal 8.5-10.1 [facility] Comment on above: Performed By: #### C BC #### [facility] [address] [place] [address] [address] Keturah Fisher Chloride [Moles/Vol] 106 mmol/L Normal 98-107 [facility] Comment on above: Performed By: #### C BC #### [facility] [address] [place] [address] [address] Keturah Fisher CO2 [Moles/Vol] 25.9 mmol/L Normal 21.0-32.0 [facility] Comment on above: Performed By: #### C BC #### [facility] [address] [address] [address] Keturah Fisher Creatinine [Mass/Vol] 0.96 mg/dL Normal 0.55-1.02 [facility] Comment on above: Performed By: #### C BC #### [facility] [address] [place] [address] [address] Keturah Fisher EGFR-AF ITALIAN >60 Normal >=60 [facility] Comment on above: Performed By: #### C BC #### [facility] [address] [place] [address] [address] Keturah Fisher EGFR-NON AF ITALIAN >60 Normal >=60 [facility] Comment on above: Performed By: #### C BC #### [facility] [address] [place] [address] [address] Keturah Fisher Globulin (S) [Mass/Vol] 3.5 g/dL Normal [facility] Comment on above: Performed By: #### C BC #### [facility] [address] [address] [address] Keturah Fisher Glucose [Mass/Vol] 113 mg/dL Critically high 74-106 [facility] Comment on above: Performed By: #### C BC #### [facility] [address] [place] [address] Dr. Keturah Fisher Potassium [Moles/Vol] 3.6 mmol/L Normal 3.5-5.1 [facility] Comment on above: Performed By: #### C BC #### [facility] [address] [place] [address] Dr. Keturah Fisher Protein [Mass/Vol] 7.4 g/dL Normal 6.4-8.2 [facility] Comment on above: Performed By: #### C BC #### [facility] [address] [place] [address] Dr. Keturah Fisher Sodium [Moles/Vol] 141 mmol/L Normal 136-145 [facility] Comment on above: Performed By: #### C BC #### [facility] [address] [place] [address] Dr. Keturah Fisher Urea nitrogen [Mass/Vol] 8.0 mg/dL Normal 7.0-18.0 [facility] Comment on above: Performed By: #### C BC #### [facility] [address] [place] [address] Dr. Keturah Fisher Urea nitrogen/Creatinine [Mass ratio] 8.3 mg/mg Normal [facility] Comment on above: Performed By: #### C BC #### [facility] [address] [place] [address] Dr. Keturah Fisher AMYLASEon 08-26-2021 Amylase [Catalytic activity/Vol] 94 U/L Normal 25-115 [facility] Comment on above: Performed By: #### A MY, CMP, LIPA ####[facility] [address] [place] [address]Dr. Keturah Fisher CBC AUTO DIFFon 08-26-2021 BASO # 0.1 103/ul Normal 0.0-0.1 [facility] Comment on above: Performed By: #### L IPA, CMP, CRP, NAT #### [facility] [address] [place] [address] Dr. Keturah Fisher Basophils/100 WBC (Bld) 0.7 % Normal 0.2-2.0 [facility] Comment on above: Performed By: #### L IPA, CMP, CRP, NAT #### [facility] [address] [place] [address] Dr. Keturah Fisher EO # 0.2 103/ul Normal 0.0-0.7 [facility] Comment on above: Performed By: #### L IPA, CMP, CRP, NAT #### [facility] [address] [place] [address] Dr. Keturah Fisher Eosinophils/100 WBC (Bld) 2.5 % Normal 0.9-7.0 [facility] Comment on above: Performed By: #### L IPA, CMP, CRP, NAT #### [facility] [address] [place] [address] Dr. Keturah Fisher Erythrocyte distribution width (RBC) [Ratio] 13.1 % Normal 11.0-15.0 [facility] Comment on above: Performed By: #### L IPA, CMP, CRP, NAT #### [facility] [address] [place] [address] Dr. Keturah Fisher Hematocrit (Bld) [Volume fraction] 42.4 % Normal 36.0-48.0 [facility] Comment on above: Performed By: #### L IPA, CMP, CRP, NAT #### [facility] [address] [place] [address] Dr. Keturah Fisher Hemoglobin (Bld) [Mass/Vol] 14.1 g/dL Normal 12.0-16.0 [facility] Comment on above: Performed By: #### L IPA, CMP, CRP, NAT #### [facility] [address] [place] [address] Dr. Keturah Fisher IG # 0.03 10e3/ul Normal 0.00-0.03 [facility] Comment on above: Performed By: #### L IPA, CMP, CRP, NAT #### [facility] [address] [place] [address] Dr. Keturah Fisher IG % 0.3 % Normal 0.0-0.5 [facility] Comment on above: Performed By: #### L IPA, CMP, CRP, NAT #### [facility] [address] [place] [address] Dr. Keturah Fisher LYMPH # 2.6 103/ul Normal 1.2-3.8 [facility] Comment on above: Performed By: #### L IPA, CMP, CRP, NAT #### [facility] [address] [place] [address] Dr. Keturah Fisher Lymphocytes/100 WBC (Bld) 27.7 % Normal 20.5-60.0 [facility] Comment on above: Performed By: #### L IPA, CMP, CRP, NAT #### [facility] [address] [place] [address] Dr. Keturah Fisher MANUAL DIFF REQ NO Normal [facility] Comment on above: Performed By: #### L IPA, CMP, CRP, NAT #### [facility] [address] [place] [address] Dr. Keturah Fisher MCH (RBC) [Entitic mass] 32.6 pg Normal 26.7-34.0 [facility] Comment on above: Performed By: #### L IPA, CMP, CRP, NAT #### [facility] [address] [place] [address] Dr. Keturah Fisher MCHC (RBC) [Mass/Vol] 33.3 g/dL Normal 29.9-35.2 [facility] Comment on above: Performed By: #### L IPA, CMP, CRP, NAT #### [facility] [address] [place] [address] Dr. Keturah Fisher MCV (RBC) [Entitic vol] 97.9 fL Normal 81.0-99.0 [facility] Comment on above: Performed By: #### L IPA, CMP, CRP, NAT #### [facility] [address] [place] [address] Dr. Keturah Fisher MONO # 1.2 103/ul Critically high 0.3-0.8 [facility] Comment on above: Performed By: #### L IPA, CMP, CRP, NAT #### [facility] [address] [place] [address] Dr. Keturah Fisher Monocytes/100 WBC (Bld) 12.9 % Critically high 1.7-12.0 [facility] Comment on above: Performed By: #### L IPA, CMP, CRP, NAT #### [facility] [address] [place] [address] Dr. Keturah Fisher NEUT # 5.3 103/ul Normal 1.4-6.5 [facility] Comment on above: Performed By: #### L IPA, CMP, CRP, NAT #### [facility] [address] [place] [address] Dr. Keturah Fisher Neutrophils/100 WBC (Bld) 55.9 % Normal 43.0-75.0 [facility] Comment on above: Performed By: #### L IPA, CMP, CRP, NAT #### [facility] [address] [place] [address] Dr. Keturah Fisher Platelet mean volume (Bld) [Entitic vol] 9.8 fL Normal 9.5-13.5 [facility] Comment on above: Performed By: #### L IPA, CMP, CRP, NAT #### [facility] [address] [place] [address] Dr. Keturah Fisher PLT 229 103/ul Normal 150-450 [facility] Comment on above: Performed By: #### L IPA, CMP, CRP, NAT #### [facility] [address] [place] [address] [address] Keturah Fisher RBC 4.33 106/ul Normal 4.20-5.40 [facility] Comment on above: Performed By: #### L IPA, CMP, CRP, NAT #### [facility] [address] [place] [address] [address] Keturah Fisher WBC 9.5 103/ul Normal 4.0-11.0 [facility] Comment on above: Performed By: #### L IPA, CMP, CRP, NAT #### [facility] [address] [place] [address] [address] Keturah Fisher LIPASEon 08-26-2021 Lipase [Catalytic activity/Vol] 146.0 U/L Normal 73.0-393.0 [facility] Comment on above: Performed By: #### A MY, CMP, LIPA ####[facility] [address] [place] [address]DrGopal Fisher PROF 14(COMP METB)on 022 Albumin [Mass/Vol] 3.5 g/dL Normal 3.4-5.0 [facility] Comment on above: Performed By: #### A MY, CMP, LIPA ####[facility] [address] [place] [address]DrGopal Fisher Albumin/Globulin [Mass ratio] 1.1 {ratio} Normal [facility] Comment on above: Performed By: #### A MY, CMP, LIPA ####[facility] [address] [place] [address]DrGopal Fisher ALP [Catalytic activity/Vol] 139 U/L Critically high 46-116 [facility] Comment on above: Performed By: #### A MY, CMP, LIPA ####[facility] [address] [place] [address]DrGopal Fisher ALT [Catalytic activity/Vol] 21 U/L Normal 14-59 [facility] Comment on above: Performed By: #### A MY, CMP, LIPA ####[facility] [address] [place] [address]DrGopal Fisher Anion gap [Moles/Vol] 11.4 mmol/L Normal Th e [facility] Comment on above: Performed By: #### A MY, CMP, LIPA ####[facility] [address] [place] [address]Dr. Keturah Fisher AST [Catalytic activity/Vol] 21 U/L Normal 15-37 [facility] Comment on above: Performed By: #### A MY, CMP, LIPA ####[facility] [address] [place] [address]Dr. Keturah Fisher Bilirubin [Mass/Vol] 0.2 mg/dL Normal 0.2-1.0 [facility] Comment on above: Performed By: #### A MY, CMP, LIPA ####[facility] [address] [place], [place] [address]Dr. Keturah Fisher Calcium [Mass/Vol] 9.2 mg/dL Normal 8.5-10.1 [facility] Comment on above: Performed By: #### A MY, CMP, LIPA ####[facility] [address] [place] [address]Dr. Keturah Fisher Chloride [Moles/Vol] 107 mmol/L Normal 98-107 [facility] Comment on above: Performed By: #### A MY, CMP, LIPA ####[facility] [address] [place], [place] [address]Dr. Keturah Fisher CO2 [Moles/Vol] 27.9 mmol/L Normal 21.0-32.0 [facility] Comment on above: Performed By: #### A MY, CMP, LIPA ####[facility] [address] [place], [place] [address]Dr. Keturah Fisher Creatinine [Mass/Vol] 0.84 mg/dL Normal 0.55-1.02 [facility] Comment on above: Performed By: #### A MY, CMP, LIPA ####[facility] [address] [place] [address]Dr. Keturah Fisher EGFR-AF ITALIAN >60 Normal >=60 [facility] Comment on above: Performed By: #### A MY, CMP, LIPA ####[facility] [address] [place] [id number]. Keturah Fisher EGFR-NON AF ITALIAN >60 Normal >=60 [facility] Comment on above: Performed By: #### A MY, CMP, LIPA ####[facility] [address] [place] [address]Dr. Keturah Fisher Globulin (S) [Mass/Vol] 3.3 g/dL Normal [facility] Comment on above: Performed By: #### A MY, CMP, LIPA ####[facility] [address] [place] [address]Dr. Keturah Fisher Glucose [Mass/Vol] 106 mg/dL Normal 74-106 [facility] Comment on above: Performed By: #### A MY, CMP, LIPA ####[facility] [address] [place] [address]Dr. Keturah Fisher Potassium [Moles/Vol] 4.3 mmol/L Normal 3.5-5.1 [facility] Comment on above: Performed By: #### A MY, CMP, LIPA ####[facility] [address] [place] [address]Dr. Keturah Fisher Protein [Mass/Vol] 6.8 g/dL Normal 6.4-8.2 [facility] Comment on above: Performed By: #### A MY, CMP, LIPA ####[facility] [address] [place] [address]Dr. Keturah Fisher Sodium [Moles/Vol] 142 mmol/L Normal 136-145 [facility] Comment on above: Performed By: #### A MY, CMP, LIPA ####[facility] [address] [place] [address]Dr. Keturah Fisher Urea nitrogen [Mass/Vol] 11.0 mg/dL Normal 7.0-18.0 [facility] Comment on above: Performed By: #### A MY, CMP, LIPA ####[facility] [address] [place] [address]Dr. Keturah Fisher Urea nitrogen/Creatinine [Mass ratio] 13.1 mg/mg Normal [facility] Comment on above: Performed By: #### A MY, CMP, LIPA ####[facility] [address] [place], [place] [address]IbDr. Keturah Fisher XR ABD FLAT UP_PA Jorje [...] MILADIS BARRERA Date: 2021-08-26 04:59 Normal [facility] AMYLASEon 08-22-2021 Amylase [Catalytic activity/Vol] 155 U/L Critically high 25-115 [facility] Comment on above: Performed By: #### C MP, NAT, LIPA #### [facility] [address] [address] [address] Keturah Fisher CBC AUTO DIFFon 08-22-2021 BASO # 0.1 103/ul Normal 0.0-0.1 [facility] Comment on above: Performed By: #### L IPA, CMP, CRP, NAT #### [facility] [address] [address] [address] Keturah Fisher Basophils/100 WBC (Bld) 0.7 % Normal 0.2-2.0 [facility] Comment on above: Performed By: #### L IPA, CMP, CRP, NAT #### [facility] [address] [address] [address] Keturah Fisher EO # 0.1 103/ul Normal 0.0-0.7 [facility] Comment on above: Performed By: #### L IPA, CMP, CRP, NAT #### [facility] [address] [place] [address] Dr. Keturah Fisher Eosinophils/100 WBC (Bld) 0.7 % Critically low 0.9-7.0 [facility] Comment on above: Performed By: #### L IPA, CMP, CRP, NAT #### [facility] [address] [place] [address] Dr. Keturah Fisher Erythrocyte distribution width (RBC) [Ratio] 13.2 % Normal 11.0-15.0 [facility] Comment on above: Performed By: #### L IPA, CMP, CRP, NAT #### [facility] [address] [place] [address] Dr. Keturah Fisher Hematocrit (Bld) [Volume fraction] 41.1 % Normal 36.0-48.0 [facility] Comment on above: Performed By: #### L IPA, CMP, CRP, NAT #### [facility] [address] [place] [address] Dr. Keturah Fisher Hemoglobin (Bld) [Mass/Vol] 13.8 g/dL Normal 12.0-16.0 [facility] Comment on above: Performed By: #### L IPA, CMP, CRP, NAT #### [facility] [address] [place] [address] Dr. Keturah Fisher IG # 0.03 10e3/ul Normal 0.00-0.03 [facility] Comment on above: Performed By: #### L IPA, CMP, CRP, NAT #### [facility] [address] [place] [address] Dr. Keturah Fisher IG % 0.2 % Normal 0.0-0.5 [facility] Comment on above: Performed By: #### L IPA, CMP, CRP, NAT #### [facility] [address] [place] [address] Dr. Keturah Fisher LYMPH # 2.6 103/ul Normal 1.2-3.8 [facility] Comment on above: Performed By: #### L IPA, CMP, CRP, NAT #### [facility] [address] [address] [address] Keturah Fisher Lymphocytes/100 WBC (Bld) 21.4 % Normal 20.5-60.0 [facility] Comment on above: Performed By: #### L IPA, CMP, CRP, NAT #### [facility] [address] [address] [address] Keturah Fisher MANUAL DIFF REQ NO Normal [facility] Comment on above: Performed By: #### L IPA, CMP, CRP, NAT #### [facility] [address] [address] [address] Keturah Fisher MCH (RBC) [Entitic mass] 32.2 pg Normal 26.7-34.0 [facility] Comment on above: Performed By: #### L IPA, CMP, CRP, NAT #### [facility] [address] [place] [address] Dr. Keturah Fisher MCHC (RBC) [Mass/Vol] 33.6 g/dL Normal 29.9-35.2 [facility] Comment on above: Performed By: #### L IPA, CMP, CRP, NAT #### [facility] [address] [place] [address] Dr. Keturah Fisher MCV (RBC) [Entitic vol] 95.8 fL Normal 81.0-99.0 [facility] Comment on above: Performed By: #### L IPA, CMP, CRP, NAT #### [facility] [address] [place] [address] Dr. Keturah Fisher MONO # 0.9 103/ul Critically high 0.3-0.8 [facility] Comment on above: Performed By: #### L IPA, CMP, CRP, NAT #### [facility] [address] [place] [address] Dr. Keturah Fisher Monocytes/100 WBC (Bld) 7.6 % Normal 1.7-12.0 [facility] Comment on above: Performed By: #### L IPA, CMP, CRP, NAT #### [facility] [address] [address] [address] Keturah Fisher NEUT # 8.5 103/ul Critically high 1.4-6.5 [facility] Comment on above: Performed By: #### L IPA, CMP, CRP, NAT #### [facility] [address] [address] [address] Keturah Fisher Neutrophils/100 WBC (Bld) 69.4 % Normal 43.0-75.0 [facility] Comment on above: Performed By: #### L IPA, CMP, CRP, NAT #### [facility] [address] [address] [address] Keturah Fisher Platelet mean volume (Bld) [Entitic vol] 9.5 fL Normal 9.5-13.5 [facility] Comment on above: Performed By: #### L IPA, CMP, CRP, NAT #### [facility] [address] [place] [address] Dr. Keturah Fisher PLT 261 103/ul Normal 150-450 [facility] Comment on above: Performed By: #### L IPA, CMP, CRP, NAT #### [facility] [address] [address] [address] Keturah Fisher RBC 4.29 106/ul Normal 4.20-5.40 [facility] Comment on above: Performed By: #### L IPA, CMP, CRP, NAT #### [facility] [address] [address] [address] Keturah Fisher WBC 12.2 103/ul Critically high 4.0-11.0 [facility] Comment on above: Performed By: #### L IPA, CMP, CRP, NAT #### [facility] [address] [place] [address] Dr. Keturah Fisher LIPASEon 08-22-2021 Lipase [Catalytic activity/Vol] 419.0 U/L Critically high 73.0-393.0 [facility] Comment on above: Performed By: #### C MP, NAT, LIPA #### [facility] [address] [address] [address] Keturah Fisher PROF 14(COMP METB)on 022 Albumin [Mass/Vol] 3.9 g/dL Normal 3.4-5.0 [facility] Comment on above: Performed By: #### C NAT MEDEL LIPA #### [facility] [address] [address] [address] Keturah Fisher Albumin/Globulin [Mass ratio] 1.2 {ratio} Normal [facility] Comment on above: Performed By: #### C NAT MEDEL LIPA #### [facility] [address] [address] [address] Keturah Fisher ALP [Catalytic activity/Vol] 137 U/L Critically high 46-116 [facility] Comment on above: Performed By: #### C NAT MEDEL LIPA #### [facility] [address] [place] [address] Dr. Keturah Fisher ALT [Catalytic activity/Vol] 22 U/L Normal 14-59 [facility] Comment on above: Performed By: #### C NAT MEDEL LIPA #### [facility] [address] [place] [address] Dr. Keturah Fisher Anion gap [Moles/Vol] 12.9 mmol/L Normal [place] Comment on above: Performed By: #### C NAT MEDEL LIPA #### [facility] [address] [place] [address] Dr. Keturah Fisher AST [Catalytic activity/Vol] 20 U/L Normal 15-37 [facility] Comment on above: Performed By: #### C NAT MEDEL LIPA #### [facility] [address] [place] [address] Dr. Keturah Fisher Bilirubin [Mass/Vol] 0.2 mg/dL Normal 0.2-1.0 [facility] Comment on above: Performed By: #### C NAT MEDEL LIPA #### [facility] [address] [place] [address] Dr. Keturah Fisher Calcium [Mass/Vol] 9.5 mg/dL Normal 8.5-10.1 [facility] Comment on above: Performed By: #### C NAT MEDEL LIPA #### [facility] [address] [address] [address] Keturah Fisher Chloride [Moles/Vol] 104 mmol/L Normal 98-107 [facility] Comment on above: Performed By: #### C MP, NAT, LIPA #### [facility] [address] [address] [address] Keturah Fisher CO2 [Moles/Vol] 23.7 mmol/L Normal 21.0-32.0 [facility] Comment on above: Performed By: #### C MP, NAT, LIPA #### [facility] [address] [address] [address] Keturah Fisher Creatinine [Mass/Vol] 0.85 mg/dL Normal 0.55-1.02 [facility] Comment on above: Performed By: #### C MP, NAT, LIPA #### [facility] [address] [place] [address] Dr. Keturah Fisher EGFR-AF ITALIAN >60 Normal >=60 [facility] Comment on above: Performed By: #### C MP, NAT, LIPA #### [facility] [address] [address] [address] Keturah Fisher EGFR-NON AF ITALIAN >60 Normal >=60 [facility] Comment on above: Performed By: #### C MP, NAT, LIPA #### [facility] [address] [place] [address] Dr. Keturah Fisher Globulin (S) [Mass/Vol] 3.3 g/dL Normal [facility] Comment on above: Performed By: #### C MP, NAT, LIPA #### [facility] [address] [address] [address] Keturah Fisher Glucose [Mass/Vol] 130 mg/dL Critically high 74-106 [facility] Comment on above: Performed By: #### C MP, NAT, LIPA #### [facility] [address] [address] [address] Keturah Fisher Potassium [Moles/Vol] 3.6 mmol/L Normal 3.5-5.1 [facility] Comment on above: Performed By: #### C MP NAT, LIPA #### [facility] [address] [address] [address] Keturah Fisher Protein [Mass/Vol] 7.2 g/dL Normal 6.4-8.2 [facility] Comment on above: Performed By: #### C MP NAT, LIPA #### [facility] [address] [address] [address] Keturah Fisher Sodium [Moles/Vol] 137 mmol/L Normal 136-145 [facility] Comment on above: Performed By: #### C LIZY NAT, LIPA #### [facility] [address] [address] [address] Keturah Fisher Urea nitrogen [Mass/Vol] 9.0 mg/dL Normal 7.0-18.0 [facility] Comment on above: Performed By: #### C NAT MEDEL, LIPA #### [facility] [address] [address] [address] Keturah Fisher Urea nitrogen/Creatinine [Mass ratio] 10.6 mg/mg Normal [facility] Comment on above: Performed By: #### C NAT MEDEL, LIPA #### [facility] [address] [place] [address] Dr. Keturah Fisher XR ABD FLAT UP_PA [...] TRI HANSON Date: 2021-08-22 14:54 Normal [facility] CBC AUTO DIFFon 08-13-2021 BASO # 0.1 103/ul Normal 0.0-0.1 [facility] Comment on above: Performed By: #### C BC ####[facility] [address] [id number]. Keturah Fisher Basophils/100 WBC (Bld) 0.6 % Normal 0.2-2.0 [facility] Comment on above: Performed By: #### C BC ####[facility] [address] [place], [place] [id number]. Keturah Fisher EO # 0.1 103/ul Normal 0.0-0.7 [facility] Comment on above: Performed By: #### C BC ####[facility] [address] [place], [place] [id number]. Keturah Fisher Eosinophils/100 WBC (Bld) 1.1 % Normal 0.9-7.0 [facility] Comment on above: Performed By: #### C BC ####[facility] [address] [place], [place] [address]Dr. Keturah Fisher Erythrocyte distribution width (RBC) [Ratio] 12.6 % Normal 11.0-15.0 [facility] Comment on above: Performed By: #### C BC ####[facility] [address] [place], [place] [address]Dr. Keturah Fisher Hematocrit (Bld) [Volume fraction] 42.3 % Normal 36.0-48.0 [facility] Comment on above: Performed By: #### C BC ####[facility] [address] [place], [place] [address]Dr. Keturah Fisher Hemoglobin (Bld) [Mass/Vol] 14.1 g/dL Normal 12.0-16.0 [facility] Comment on above: Performed By: #### C BC ####[facility] [address] [place], [place] [address]Dr. Keturah Fisher IG # 0.03 10e3/ul Normal 0.00-0.03 [facility] Comment on above: Performed By: #### C BC ####[facility] [address] [place], [place] [address]Dr. Keturah Fisher IG % 0.3 % Normal 0.0-0.5 [facility] Comment on above: Performed By: #### C BC ####[facility] [address] [id number]. Keturah Fisher LYMPH # 2.4 103/ul Normal 1.2-3.8 [facility] Comment on above: Performed By: #### C BC ####[facility] [address] [id number]. Keturah Fisher Lymphocytes/100 WBC (Bld) 22.3 % Normal 20.5-60.0 [facility] Comment on above: Performed By: #### C BC ####[facility] [address] [address]Dr. Keturah Fisher MANUAL DIFF REQ NO Normal [facility] Comment on above: Performed By: #### C BC ####[facility] [address] [address]Dr. Keturah Fisher MCH (RBC) [Entitic mass] 32.5 pg Normal 26.7-34.0 [facility] Comment on above: Performed By: #### C BC ####[facility] [address] [id number]. Keturah Fisher MCHC (RBC) [Mass/Vol] 33.3 g/dL Normal 29.9-35.2 [facility] Comment on above: Performed By: #### C BC ####[facility] [address] [id number] Fisher MCV (RBC) [Entitic vol] 97.5 fL Normal 81.0-99.0 [facility] Comment on above: Performed By: #### C BC ####[facility] [address] [id number] Fisher MONO # 1.0 103/ul Critically high 0.3-0.8 [facility] Comment on above: Performed By: #### C BC ####[facility] [address] [id number]. Keturah Fisher Monocytes/100 WBC (Bld) 8.7 % Normal 1.7-12.0 [facility] Comment on above: Performed By: #### C BC ####[facility] [address] [id number]. Keturah Fisher NEUT # 7.3 103/ul Critically high 1.4-6.5 [facility] Comment on above: Performed By: #### C BC ####[facility] [address] [id number]. Keturah Fisher Neutrophils/100 WBC (Bld) 67.0 % Normal 43.0-75.0 [facility] Comment on above: Performed By: #### C BC ####[facility] [address] [address]Dr. Keturah Fisher Platelet mean volume (Bld) [Entitic vol] 9.5 fL Normal 9.5-13.5 [facility] Comment on above: Performed By: #### C BC ####[facility] [address] [address]Dr. Keturah Fisher PLT 272 103/ul Normal 150-450 [facility] Comment on above: Performed By: #### C BC ####[facility] [address] [address]Dr. Keturah Fisher RBC 4.34 106/ul Normal 4.20-5.40 [facility] Comment on above: Performed By: #### C BC ####[facility] [address] [place], [place] [address]Dr. Keturah Fisher WBC 10.9 103/ul Normal 4.0-11.0 [facility] Comment on above: Performed By: #### C BC ####[facility] [address] [place], [place] [address]Dr. Keturah Fisher CT ABD/PELV W CONon 08-14-19 [...] HEBERT MCPHERSON Date: 2021-08-13 17:14 Normal [facility] ER URINE PROFILEon 2 Bilirubin Ql (U) Negative Normal NEGATIVE [facility] Comment on above: Performed By: #### C BC #### [facility] [address] [place] [address] Dr. Keturah Fisher Clarity (U) CLEAR Normal CLEAR [facility] Comment on above: Performed By: #### C BC #### [facility] [address] [place] [address] Dr. Keturah Fisher Color (U) LT. YELLOW Normal YELLOW [facility] Comment on above: Performed By: #### C BC #### [facility] [address] [place] [address] Dr. Keturah Fisher ERUAHD A micrscopic examina tion will be performed if indicated. Normal [facility] Comment on above: Performed By: #### C BC #### [facility] [address] [place] [address] Dr. Keturah Fisher Glucose Ql (U) Negative Normal NEGATIVE [facility] Comment on above: Performed By: #### C BC #### [facility] [address] [place] [address] Dr. Keturah Fisher Hemoglobin Ql (U) Negative Normal NEGATIVE [facility] Comment on above: Performed By: #### C BC #### [facility] [address] [place] [address] Dr. Keturah Fisher Ketones Ql (U) Negative Normal NEGATIVE [facility] Comment on above: Performed By: #### C BC #### [facility] [address] [place] [address] Dr. Keturah Fisher LEUKOCYTES Negative Normal NEGATIVE [facility] Comment on above: Performed By: #### C BC #### [facility] [address] [place] [address] Dr. Keturah Fisher Nitrite Ql (U) Negative Normal NEGATIVE [facility] Comment on above: Performed By: #### C BC #### [facility] [address] [place] [address] Dr. Keturah Fisher pH (U) 5.5 [pH] Normal 5-9 [facility] Comment on above: Performed By: #### C BC #### [facility] [address] [place] [address] Dr. Keturah Fisher SPEC GRAVITY 1.010 Normal 1.005-<=1. 025 [facility] Comment on above: Performed By: #### C BC #### [facility] [address] [place] [address] Dr. Keturah Fisher UA PROTEIN Negative Normal NEGATIVE/ TRACE [facility] Comment on above: Performed By: #### C BC #### [facility] [address] [place] [address] Dr. Keturah Fisher UR MICRO IND NOT INDICATED Normal [facility] Comment on above: Performed By: #### C BC #### [facility] [address] [place] [address] Dr. Keturah Fisher Urobilinogen Qn (U) 0.2 {Marizol'U}/dL Normal 0.2 - 1. 0 [facility] Comment on above: Performed By: #### C BC #### [facility] [address] [place] [address] Dr. Keturah Fisher LIPASEon 08-13-2021 Lipase [Catalytic activity/Vol] 217.0 U/L Normal 73.0-393.0 [facility] Comment on above: Performed By: #### C BC #### [facility] [address] [place] [address] Dr. Keturah Fisher PROF 14(COMP METB)on 022 Albumin [Mass/Vol] 3.9 g/dL Normal 3.4-5.0 [facility] Comment on above: Performed By: #### C BC #### [facility] [address] [place] [address] Dr. Keturah Fisher Albumin/Globulin [Mass ratio] 1.1 {ratio} Normal [facility] Comment on above: Performed By: #### C BC #### [facility] [address] [place] [address] Dr. Keturah Fisher ALP [Catalytic activity/Vol] 140 U/L Critically high 46-116 [facility] Comment on above: Performed By: #### C BC #### [facility] [address] [place] [address] Dr. Keturah Fisher ALT [Catalytic activity/Vol] 24 U/L Normal 14-59 [facility] Comment on above: Performed By: #### C BC #### [facility] [address] [address] [address] Keturah Fisher Anion gap [Moles/Vol] 11.7 mmol/L Normal [facility] Comment on above: Performed By: #### C BC #### [facility] [address] [address] [address] Keturah Fisher AST [Catalytic activity/Vol] 19 U/L Normal 15-37 [facility] Comment on above: Performed By: #### C BC #### [facility] [address] [address] [address] Keturah Fisher Bilirubin [Mass/Vol] 0.2 mg/dL Normal 0.2-1.0 [facility] Comment on above: Performed By: #### C BC #### [facility] [address] [address] [address] Keturah Fisher Calcium [Mass/Vol] 9.9 mg/dL Normal 8.5-10.1 [facility] Comment on above: Performed By: #### C BC #### [facility] [address] [address] [address] Keturah Fisher Chloride [Moles/Vol] 105 mmol/L Normal 98-107 [facility] Comment on above: Performed By: #### C BC #### [facility] [address] [address] [address] Keturah Fisher CO2 [Moles/Vol] 29.1 mmol/L Normal 21.0-32.0 [facility] Comment on above: Performed By: #### C BC #### [facility] [address] [address] [address] Keturah Fisher Creatinine [Mass/Vol] 0.81 mg/dL Normal 0.55-1.02 [facility] Comment on above: Performed By: #### C BC #### [facility] [address] [address] [address] Keturah Fisher EGFR-AF ITALIAN >60 Normal >=60 [facility] Comment on above: Performed By: #### C BC #### [facility] [address] [place] [address] Dr. Keturah Fisher EGFR-NON AF ITALIAN >60 Normal >=60 [facility] Comment on above: Performed By: #### C BC #### [facility] [address] [place] [address] Dr. Keturah Fisher Globulin (S) [Mass/Vol] 3.4 g/dL Normal [facility] Comment on above: Performed By: #### C BC #### [facility] [address] [address] [address] Keturah Fisher Glucose [Mass/Vol] 87 mg/dL Normal 74-106 [facility] Comment on above: Performed By: #### C BC #### [facility] [address] [place] [address] Dr. Keturah Fisher Potassium [Moles/Vol] 3.8 mmol/L Normal 3.5-5.1 [facility] Comment on above: Performed By: #### C BC #### [facility] [address] [place] [address] Dr. Keturah Fisher Protein [Mass/Vol] 7.3 g/dL Normal 6.4-8.2 [facility] Comment on above: Performed By: #### C BC #### [facility] [address] [place] [address] Dr. Keturah Fisher Sodium [Moles/Vol] 142 mmol/L Normal 136-145 [facility] Comment on above: Performed By: #### C BC #### [facility] Laboratory [address] [place] [address] Dr. Keturah Fisher Urea nitrogen [Mass/Vol] 11.0 mg/dL Normal 7.0-18.0 [facility] Comment on above: Performed By: #### C BC #### [facility] Laboratory [address] [place] [address] Dr. Keturah Fisher Urea nitrogen/Creatinine [Mass ratio] 13.6 mg/mg Normal [facility] Comment on above: Performed By: #### C BC #### [facility] Laboratory [address] [place] [address] Dr. Keturah Fisher Albumin [Mass/volume] in Ser um or PlasmaOrdered By: Keaton Barnard on 08-11-2021 Albumin [Mass/Vol] 3.4 g/dL 3.2-5.5 [facility] Basophils Auto (Bld) [#/Vol] Ordered By: Keaton Barnard on 08-11-2021 Basophils (Bld) [#/Vol] 0.1 10*3/uL 0.0-0.2 [facility] Basophils/100 WBC Auto (Bld) Ordered By: Keaton Barnard on 08-11-2021 Basophils/100 WBC (Bld) 0.9 % . [facility] Bilirubin Test strip Ql (U)O rdered By: Keaton Barnard on 08-11-2021 Bilirubin Ql (U) Negative Negative [facility] Blood hemoglobin measurement (mass/volume)Ordered By: Keaton Barnard on 08-11-2021 Hemoglobin (Bld) [Mass/Vol] 14.1 g/dL 11.8-15.4 [facility] Blood leukocytes automated c ount (number/volume)Ordered By: Keaton Barnard on 08-11-2021 WBC (Bld) [#/Vol] 9.7 10*3/uL 4.5-11.0 [facility] Color Auto (U)Ordered By: Luis Barnard on 08-11-2021 Color (U) Yellow Yellow [facility] Creatinine and Glomerular fi ltration rate.predicted panel (S/P/Bld)Ordered By: Keaton Barnard on 08-11-2021 Creatinine [Mass/Vol] 0.95 mg/dL 0.44-1.03 [facility] Direct bilirubin measurement Ordered By: Keaton Barnard on 08-11-2021 Bilirubin.direct [Mass/Vol] mg/dL 0.0-0.4 [facility] Eosinophils Auto (Bld) [#/Vo l]Ordered By: Keaotn Barnard on 08-11-2021 Eosinophils (Bld) [#/Vol] 0.1 10*3/uL 0.0-0.45 [facility] Eosinophils/100 WBC Auto (Bl d)Ordered By: Keaton Barnard on 08-11-2021 Eosinophils/100 WBC (Bld) 1.3 % . [facility] Erythrocyte distribution wid th Auto (RBC) [Ratio]Ordered By: Keaton Barnard on 08-11-2021 Erythrocyte distribution width (RBC) [Ratio] 13.2 % 11.9-15.3 [facility] Estimated glomerular filtrat ion rate (GFR) non- AmericanOrdered By: Keaton Barnard on 08-11-2021 GFR/1.73 sq M.predicted among non-blacks MDRD (S/P/Bld) [Vol rate/Area] > 60 mL/Min [facility] Globulin Calc (S) [Mass/Vol] Ordered By: Keaton Barnard on 08-11-2021 Globulin (S) [Mass/Vol] 2.6 g/dL [facility] Hematocrit Auto (Bld) [Volum e fraction]Ordered By: Keaton Barnard on 08-11-2021 Hematocrit (Bld) [Volume fraction] 42.1 % 34.0-46.4 [facility] Ketones Auto test strip (U) [Mass/Vol]Ordered By: Keaton Barnard on 08-11-2021 Ketones (U) [Mass/Vol] Negative Negative [facility] Laboratory - Chemistry and C hemistry - challengeOrdered By: Keaton Barnard on 08-11-2021 Lipase [Catalytic activity/Vol] 89.0 U/L 22-51 [facility] Laboratory - CoagulationOrde red By: Keaton Barnard on 08-11-2021 PT Coag (PPP) [Time] 12.5 s 9.0-12.9 [facility] Laboratory - Hematology and Cell countsOrdered By: Keaton Barnard on 08-11-2021 Nucleated RBC/100 WBC (Bld) [Ratio] 0.1 % 0-0.5 [facility] Lymphocytes Auto (Bld) [#/Vo l]Ordered By: Keaton Barnard on 08-11-2021 Lymphocytes (Bld) [#/Vol] 2.5 10*3/uL 1.00-4.8 [facility] Lymphocytes/100 WBC Auto (Bl d)Ordered By: Keaton Barnard on 08-11-2021 Lymphocytes/100 WBC (Bld) 25.8 % . [facility] MCH Auto (RBC) [Entitic mass ]Ordered By: Keaton Barnard on 08-11-2021 MCH (RBC) [Entitic mass] 32.4 pg 24.7-34.3 [facility] MCHC Auto (RBC) [Mass/Vol]Or dered By: Keaton Barnard on 08-11-2021 MCHC (RBC) [Mass/Vol] 33.4 g/dL 32.0-35.0 [facility] MCV Auto (RBC) [Entitic vol] Ordered By: Keaton Barnard on 08-11-2021 MCV (RBC) [Entitic vol] 96.8 fL 80-100 [facility] Monocytes Auto (Bld) [#/Vol] Ordered By: Keaton Barnard on 08-11-2021 Monocytes (Bld) [#/Vol] 0.8 10*3/uL 0.0-0.8 [facility] Monocytes/100 WBC Auto (Bld) Ordered By: Keaton Barnard on 08-11-2021 Monocytes/100 WBC (Bld) 8.7 % . [facility] Neutrophils Auto (Bld) [#/Vo l]Ordered By: Keaton Barnard on 08-11-2021 Neutrophils (Bld) [#/Vol] 6.1 10*3/uL 1.8-7.7 [facility] Neutrophils/100 WBC Auto (Bl d)Ordered By: Keaton Barnard on 08-11-2021 Neutrophils/100 WBC (Bld) 63.3 % . [facility] Nitrite Test strip Ql (U)Ord ered By: Keaton Barnard on 08-11-2021 Nitrite Ql (U) Negative Negative [facility] No Panel InformationOrdered By: Keaton Barnard on 08-11-2021 Estimated GFR () > 60 mL/Min [facility] Comment on above: GFR estimated refere nce range: According to KDOQI guidelines, <60 ml/min/1.73m2 is sufficient to diagnose a patient with chronic kidney disease. Pharmacy Creatinine Clearance (Chem 62.33 [facility] Platelet mean volume Auto (B ld) [Entitic vol]Ordered By: Keaton Barnard on 08-11-2021 Platelet mean volume (Bld) [Entitic vol] 8.0 fL 6.3-10.7 [facility] Platelet poor plasma interna tional normalized ratio (INR) by coagulation assay (relatOrdered By: Keaton Barnard on 08-11-2021 INR Coag (PPP) [Relative time] 1.1 {INR} [facility] Comment on above: INR Therapeutic Rang [...] 08-11-2021 Platelets (Bld) [#/Vol] 252 10*3/uL 150-450 [facility] Protein Auto test strip (U) [Mass/Vol]Ordered By: Keaton Barnard on 08-11-2021 Protein (U) [Mass/Vol] Negative Negative [facility] Protein [Mass/volume] in Ser um or PlasmaOrdered By: Keaton Barnard on 08-11-2021 Protein [Mass/Vol] 6.0 g/dL 6.1-7.9 [facility] RBC Auto (Bld) [#/Vol]Ordere d By: Keaton Barnard on 08-11-2021 RBC (Bld) [#/Vol] 4.35 10*6/uL 3.60-5.00 [facility] Serum or plasma alanine hughes otransferase measurement without P-5'-P (enzymatic activiOrdered By: Keaton Barnard on 08-11-2021 ALT No additional P-5'-P [Catalytic activity/Vol] 12 U/L 10-60 [facility] Serum or plasma albumin/glob ulin mass ratioOrdered By: Keaton Barnard on 08-11-2021 Albumin/Globulin [Mass ratio] 1.3 {ratio} [facility] Serum or plasma alkaline jaqueline sphatase measurement (enzymatic activity/volume)Ordered By: Keaton Barnard on 08-11-2021 ALP [Catalytic activity/Vol] 98 U/L 32-92 [facility] Serum or plasma aspartate am inotransferase measurement (enzymatic activity/volume)Ordered By: Keaton Barnard on 08-11-2021 AST [Catalytic activity/Vol] 17 U/L 10-42 [facility] Serum or plasma calcium priscilla urement (mass/volume)Ordered By: Keaton Barnard on 08-11-2021 Calcium [Mass/Vol] 9.3 mg/dL 8.2-10.2 [facility] Serum or plasma chloride daron surement (moles/volume)Ordered By: Keaton Barnard on 08-11-2021 Chloride [Moles/Vol] 104 mmol/L 95-114 [facility] Serum or plasma glucose priscilla urement (mass/volume)Ordered By: Keaton Barnard on 08-11-2021 Glucose [Mass/Vol] 95 mg/dL 70-100 [facility] Comment on above: ADA recommended refe rence range Random Glucose Reference Range is dependent on time and content of last meal. Glucose of more than 200 mg/dL in a nonstressed, ambulatory subject supports the diagnosis of Diabetes Mellitus. Serum or plasma non-glucuron idated bilirubin measurement (mass/volume)Ordered By: Keaton Barnard on 08-11-2021 Bilirubin.indirect [Mass/Vol] TNP [facility] Comment on above: Test not performed Serum or plasma potassium me asurement (moles/volume)Ordered By: Keaton Barnard on 08-11-2021 Potassium [Moles/Vol] 3.8 mmol/L 3.5-5.1 [facility] Serum or plasma sodium measu rement (moles/volume)Ordered By: Keaton Barnard on 08-11-2021 Sodium [Moles/Vol] 138 mmol/L 136-146 [facility] Serum or plasma total biliru bin measurement (mass/volume)Ordered By: Keaton Barnard on 08-11-2021 Bilirubin [Mass/Vol] 0.3 mg/dL 0.3-1.2 [facility] Serum or plasma total carbon dioxide measurement (moles/volume)Ordered By: Keaton Barnard on 08-11-2021 CO2 [Moles/Vol] 24.8 mmol/L 22.0-30.0 [facility] Serum or plasma urea nitroge n measurement (mass/volume)Ordered By: Keaton Barnard on 08-11-2021 Urea nitrogen [Mass/Vol] 10 mg/dL 9- [facility] Specific gravity Auto test s trip (U) [Rel density]Ordered By: Keaton Barnard on 08-11-2021 Specific gravity (U) [Rel density] 1.028 1.001-1.03 0 [facility] Troponin I.cardiac [Mass/vol ume] in Serum or Plasma by High sensitivity methodOrdered By: Keaton Barnard on 08-11-2021 Troponin I.cardiac High sensitivity method [Mass/Vol] 3 pg/mL 0-15 [facility] Urine clarity by refractomet ry automatedOrdered By: Keaton Barnard on 08-11-2021 Clarity Refractometry automated (U) Clear Clear [facility] Urine glucose measurement by automated test strip (mass/volume)Ordered By: Keaton Barnard on 08-11-2021 Glucose Auto test strip (U) [Mass/Vol] Normal mg/dL Normal [facility] Urine hemoglobin detection b y automated test stripOrdered By: Keaton Barnard on 08-11-2021 Hemoglobin Auto test strip Ql (U) Negative Negative [facility] Urine leukocyte esterase det ection by automated test stripOrdered By: Keaton Barnard on 08-11-2021 Leukocyte esterase Auto test strip Ql (U) Negative Negative [facility] Urobilinogen Auto test strip (U) [Mass/Vol]Ordered By: Keaton Barnard on 08-11-2021 Urobilinogen (U) [Mass/Vol] Normal mg/dL Normal [facility] pH Auto test strip (U)Ordere d By: Keaton Barnard on 08-11-2021 pH (U) 5.0 [pH] 5.0-9.0 [facility] AMYLASEon 07-31-2021 Amylase [Catalytic activity/Vol] 158 U/L Critically high 25-115 [facility] Comment on above: Performed By: #### L IPA, CMP, CRP, NAT #### [facility] Laboratory [address] [address] [address] Keturah Fisher CBC AUTO DIFFon 07-31-2021 BASO # 0.1 103/ul Normal 0.0-0.1 [facility] Comment on above: Performed By: #### C BC ####[facility] [address] [id number]. Keturah Fisher Basophils/100 WBC (Bld) 0.7 % Normal 0.2-2.0 [facility] Comment on above: Performed By: #### C BC ####[facility] [address] [place], [place] [id number]. Keturah Fisher EO # 0.1 103/ul Normal 0.0-0.7 [facility] Comment on above: Performed By: #### C BC ####[facility] [address] [place], [place] [address]Dr. Keturah Fisher Eosinophils/100 WBC (Bld) 0.9 % Normal 0.9-7.0 [facility] Comment on above: Performed By: #### C BC ####[facility] [address] [place], [place] [address]Dr. Keturah Fisher Erythrocyte distribution width (RBC) [Ratio] 12.7 % Normal 11.0-15.0 [facility] Comment on above: Performed By: #### C BC ####[facility] [address] [place], [place] [address]Dr. Keturah Fisher Hematocrit (Bld) [Volume fraction] 43.2 % Normal 36.0-48.0 [facility] Comment on above: Performed By: #### C BC ####[facility] [address] [place], [place] [address]Dr. Keturah Fisher Hemoglobin (Bld) [Mass/Vol] 14.5 g/dL Normal 12.0-16.0 [facility] Comment on above: Performed By: #### C BC ####[facility] [address] [place], [place] [address]Dr. Keturah Fisher IG # 0.04 10e3/ul Critically high 0.00-0.03 [facility] Comment on above: Performed By: #### C BC ####[facility] [address] [place], [place] [address]Dr. Keturah Fisher IG % 0.4 % Normal 0.0-0.5 [facility] Comment on above: Performed By: #### C BC ####[facility] [address] [id number]. Keturah Phillip LYMPH # 2.8 103/ul Normal 1.2-3.8 [facility] Comment on above: Performed By: #### C BC ####[facility] [address] [id number]. Elisaeli Fisher Lymphocytes/100 WBC (Bld) 24.9 % Normal 20.5-60.0 [facility] Comment on above: Performed By: #### C BC ####[facility] [address] [id number]. Keturah Fisher MANUAL DIFF REQ NO Normal [facility] [place] Comment on above: Performed By: #### C BC ####[facility] [address] [id number]. Keturah Fisher MCH (RBC) [Entitic mass] 32.7 pg Normal 26.7-34.0 [facility] Comment on above: Performed By: #### C BC ####[facility] [address] [id number]. Keturah Phillip MCHC (RBC) [Mass/Vol] 33.6 g/dL Normal 29.9-35.2 [facility] Comment on above: Performed By: #### C BC ####[facility] [address] [id number]. Keturah Fisher MCV (RBC) [Entitic vol] 97.5 fL Normal 81.0-99.0 [facility] Comment on above: Performed By: #### C BC ####[facility] [address] [id number]. Keturah Fisher MONO # 0.9 103/ul Critically high 0.3-0.8 [facility] [place] Comment on above: Performed By: #### C BC ####[facility] [address] [id number]. Keturah Fisher Monocytes/100 WBC (Bld) 8.1 % Normal 1.7-12.0 [facility] Comment on above: Performed By: #### C BC ####[facility] [address] [place], [place] [address]Fn. Keturah Fisher NEUT # 7.3 103/ul Critically high 1.4-6.5 [facility] Comment on above: Performed By: #### C BC ####[facility] [address] [id number]. Keturah Fisher Neutrophils/100 WBC (Bld) 65.0 % Normal 43.0-75.0 [facility] Comment on above: Performed By: #### C BC ####[facility] [address] [id number]. Keturah Fisher Platelet mean volume (Bld) [Entitic vol] 10.0 fL Normal 9.5-13.5 [facility] Comment on above: Performed By: #### C BC ####[facility] [address] [id number]. Keturah Fisher PLT 245 103/ul Normal 150-450 [facility] Comment on above: Performed By: #### C BC ####[facility] [address] [id number]. Keturah Fisher RBC 4.43 106/ul Normal 4.20-5.40 [facility] Comment on above: Performed By: #### C BC ####[facility] [address] [id number]. Keturah Fisher WBC 11.2 103/ul Critically high 4.0-11.0 [facility] Comment on above: Performed By: #### C BC ####[facility] [address] [id number]. Keturah Fisher LIPASEon 07-31-2021 Lipase [Catalytic activity/Vol] 439.0 U/L Critically high 73.0-393.0 [facility] Comment on above: Performed By: #### L IPA, CMP, CRP, NAT #### [facility] Laboratory [address] [place], [place] [address] Dr. Keturah Fisher PROF 14(COMP METB)on 022 Albumin [Mass/Vol] 3.6 g/dL Normal 3.4-5.0 [facility] Comment on above: Performed By: #### L IPA, CMP, CRP, NAT #### [facility] Laboratory [address] [place] [address] Dr. Keturah Fisher Albumin/Globulin [Mass ratio] 1.1 {ratio} Normal [facility] Comment on above: Performed By: #### L IPA, CMP, CRP, NAT #### [facility] Laboratory [address] [place] [address] Dr. Keturah Fisher ALP [Catalytic activity/Vol] 119 U/L Critically high 46-116 [facility] Comment on above: Performed By: #### L IPA, CMP, CRP, NAT #### [facility] Laboratory [address] [place] [address] Dr. eKturah Fisher ALT [Catalytic activity/Vol] 20 U/L Normal 14-59 [facility] Comment on above: Performed By: #### L IPA, CMP, CRP, NAT #### [facility] Laboratory [address] [place] [address] Dr. Keturah Fisher Anion gap [Moles/Vol] 13.4 mmol/L Normal [place] Comment on above: Performed By: #### L IPA, CMP, CRP, NAT #### [facility] Laboratory [address] [place] [address] Dr. Keturah Fisher AST [Catalytic activity/Vol] 16 U/L Normal 15-37 [facility] Comment on above: Performed By: #### L IPA, CMP, CRP, NAT #### [facility] Laboratory [address] [place] [address] Dr. Keturah Fisher Bilirubin [Mass/Vol] 0.1 mg/dL Critically low 0.2-1.0 [facility] Comment on above: Performed By: #### L IPA, CMP, CRP, NAT #### [facility] Laboratory [address] [place] [address] Dr. Keturah Fisher Calcium [Mass/Vol] 8.9 mg/dL Normal 8.5-10.1 [facility] Comment on above: Performed By: #### L IPA, CMP, CRP, NAT #### [facility] Laboratory [address] [address] [address] Keturah Fisher Chloride [Moles/Vol] 106 mmol/L Normal 98-107 [facility] Comment on above: Performed By: #### L IPA, CMP, CRP, NAT #### [facility] Laboratory [address] [address] [address] Keturah Fisher CO2 [Moles/Vol] 25.4 mmol/L Normal 21.0-32.0 [facility] Comment on above: Performed By: #### L IPA, CMP, CRP, NAT #### [facility] Laboratory [address] [address] [address] Keturha Fisher Creatinine [Mass/Vol] 0.73 mg/dL Normal 0.55-1.02 [facility] Comment on above: Performed By: #### L IPA, CMP, CRP, NAT #### [facility] Laboratory [address] [address] [address] Keturah Fisher EGFR-AF ITALIAN >60 Normal >=60 [facility] Comment on above: Performed By: #### L IPA, CMP, CRP, NAT #### [facility] Laboratory [address] [address] [address] Keturah Fisher EGFR-NON AF ITALIAN >60 Normal >=60 [facility] Comment on above: Performed By: #### L IPA, CMP, CRP, NAT #### [facility] Laboratory [address] [address] [address] Keturah Fisher Globulin (S) [Mass/Vol] 3.2 g/dL Normal [facility] Comment on above: Performed By: #### L IPA, CMP, CRP, NAT #### [facility] Laboratory [address] [address] [address] Keturah Fisher Glucose [Mass/Vol] 105 mg/dL Normal 74-106 [facility] Comment on above: Performed By: #### L IPA, CMP, CRP, NAT #### [facility] Laboratory [address] [address] [address] Keturah Fisher Potassium [Moles/Vol] 3.8 mmol/L Normal 3.5-5.1 [facility] Comment on above: Performed By: #### L IPA, CMP, CRP, NAT #### [facility] Laboratory [address] [address] [address] Keturah Fisher Protein [Mass/Vol] 6.8 g/dL Normal 6.4-8.2 [facility] Comment on above: Performed By: #### L IPA, CMP, CRP, NAT #### [facility] Laboratory [address] [place] [address] Dr. Keturah Fisher Sodium [Moles/Vol] 141 mmol/L Normal 136-145 [facility] Comment on above: Performed By: #### L IPA, CMP, CRP, NAT #### [facility] Laboratory [address] [place] [address] Dr. Keturah Fisher Urea nitrogen [Mass/Vol] 12.0 mg/dL Normal 7.0-18.0 [facility] Comment on above: Performed By: #### L IPA, CMP, CRP, NAT #### [facility] Laboratory [address] [place] [address] Dr. Keturah Fisher Urea nitrogen/Creatinine [Mass ratio] 16.4 mg/mg Normal [facility] Comment on above: Performed By: #### L IPA, CMP, CRP, NAT #### [facility] Laboratory [address] [place] [address] Dr. Keturah Fisher TROPONIN, HIGH SENSITIVITYon 07-31-2021 HSTROP 4.2 pg/mL Normal 4.0-51.3 [facility] Comment on above: Result Comment: CUT- OFF POINTS HAVE BEEN ESTABLISHED BASED ON THE FOURTH UNIVERSAL DEFINITIONS OF MYOCARDIAL INFARCTION. THE UPPER REFERENCE LIMIT (URL) OF TROPONIN, DEFINED THE 99TH PERCENTILE OF cTnI DISTRIBUTION IN A REFERENCE POPULATION, HAS BEEN CONFIRMED THE DECISION THRESHOLD FOR DC DIAGNOSIS. Performed By: #### L IPA, CMP, CRP, NAT #### [facility] Laboratory [address] [address] [address] Keturah Fisher AMYLASEon 07-19-2021 Amylase [Catalytic activity/Vol] 198 U/L Critically high 25-115 [facility] Comment on above: Performed By: #### A MY, LIPA, CMP ####[facility] [address] [id number]. Keturah Phillip CBC AUTO DIFFon 07-19-2021 BASO # 0.1 103/ul Normal 0.0-0.1 [facility] Comment on above: Performed By: #### C BC ####[facility] [address] [place], [place] [address]Dr. Keturah Fisher Basophils/100 WBC (Bld) 0.7 % Normal 0.2-2.0 [facility] Comment on above: Performed By: #### C BC ####[facility] [address] [place], [place] [address]Dr. Keturah Fisher EO # 0.1 103/ul Normal 0.0-0.7 [facility] Comment on above: Performed By: #### C BC ####[facility] [address] [place], [place] [address]Dr. Keturah Fisher Eosinophils/100 WBC (Bld) 1.0 % Normal 0.9-7.0 [facility] Comment on above: Performed By: #### C BC ####[facility] [address] [place], [place] [address]Dr. Keturah Fisher Erythrocyte distribution width (RBC) [Ratio] 12.5 % Normal 11.0-15.0 [facility] Comment on above: Performed By: #### C BC ####[facility] [address] [place], [place] [address]Dr. Keturah Fisher Hematocrit (Bld) [Volume fraction] 42.4 % Normal 36.0-48.0 [facility] Comment on above: Performed By: #### C BC ####[facility] [address] [place], [place] [address]Dr. Keturah Fisher Hemoglobin (Bld) [Mass/Vol] 14.2 g/dL Normal 12.0-16.0 [facility] Comment on above: Performed By: #### C BC ####[facility] [address] [place], [place] [address]Dr. Keturah Fisher IG # 0.03 10e3/ul Normal 0.00-0.03 [facility] Comment on above: Performed By: #### C BC ####[facility] [address] [id number]. Elisaeli Fisher IG % 0.3 % Normal 0.0-0.5 [facility] Comment on above: Performed By: #### C BC ####[facility] [address] [id number]. Keturah Phillip LYMPH # 3.0 103/ul Normal 1.2-3.8 [facility] Comment on above: Performed By: #### C BC ####[facility] [address] [id number]. Elisaeli Fisher Lymphocytes/100 WBC (Bld) 29.5 % Normal 20.5-60.0 [facility] Comment on above: Performed By: #### C BC ####[facility] [address] [place] [address]Dr. Keturah Fisher MANUAL DIFF REQ NO Normal [facility] Comment on above: Performed By: #### C BC ####[facility] [address] [place] [id number]. Keturah Fisher MCH (RBC) [Entitic mass] 32.8 pg Normal 26.7-34.0 [facility] Comment on above: Performed By: #### C BC ####[facility] [address] [place] [id number]. Keturah Fisher MCHC (RBC) [Mass/Vol] 33.5 g/dL Normal 29.9-35.2 [facility] Comment on above: Performed By: #### C BC ####[facility] [address] [place] [id number]. Keturah Fisher MCV (RBC) [Entitic vol] 97.9 fL Normal 81.0-99.0 [facility] Comment on above: Performed By: #### C BC ####[facility] [address] [place] [id number]. Keturah Fisher MONO # 1.0 103/ul Critically high 0.3-0.8 [facility] Comment on above: Performed By: #### C BC ####[facility] [address] [place] [id number]. Keturah Fisher Monocytes/100 WBC (Bld) 9.3 % Normal 1.7-12.0 [facility] Comment on above: Performed By: #### C BC ####[facility] [address] [place] [id number]. Keturah Fisher NEUT # 6.1 103/ul Normal 1.4-6.5 [facility] Comment on above: Performed By: #### C BC ####[facility] [address] [place] [address]Dr. Keturah Fisher Neutrophils/100 WBC (Bld) 59.2 % Normal 43.0-75.0 [facility] Comment on above: Performed By: #### C BC ####[facility] [address] [place] [address]Dr. Keturah Fisher Platelet mean volume (Bld) [Entitic vol] 9.8 fL Normal 9.5-13.5 [facility] Comment on above: Performed By: #### C BC ####[facility] [address] [place] [address]Dr. Keturah Fisher PLT 249 103/ul Normal 150-450 [facility] Comment on above: Performed By: #### C BC ####[facility] [address] [place] [id number]. Keturah Fisher RBC 4.33 106/ul Normal 4.20-5.40 [facility] Comment on above: Performed By: #### C BC ####[facility] [address] [place], [place] [id number]. Keturah Fisher WBC 10.2 103/ul Normal 4.0-11.0 [facility] Comment on above: Performed By: #### C BC ####[facility] [address] [place] [address]Dr. Keturah Fisher LIPASEon 07-19-2021 Lipase [Catalytic activity/Vol] 554.0 U/L Critically high 73.0-393.0 [facility] Comment on above: Performed By: #### A AMANDEEP LIPA, CMP ####[facility] [address] [place] [address]Dr. Keturah Fisher PROF 14(COMP METB)on 022 Albumin [Mass/Vol] 4.0 g/dL Normal 3.4-5.0 [facility] Comment on above: Performed By: #### A AMANDEEP LIPA, CMP ####[facility] [address] [place] [address]Dr. Keturah Fisher Albumin/Globulin [Mass ratio] 1.1 {ratio} Normal [facility] Comment on above: Performed By: #### A AMANDEEP LIPA, CMP ####[facility] [address] [place], [place] [address]Dr. Keturah Fisher ALP [Catalytic activity/Vol] 141 U/L Critically high 46-116 [facility] Comment on above: Performed By: #### A AMANDEEP LIPA, CMP ####[facility] [address] [place], [place] [address]Dr. Keturah Fisher ALT [Catalytic activity/Vol] 21 U/L Normal 14-59 [facility] Comment on above: Performed By: #### A AMANDEEP LIPA, CMP ####[facility] E[address] [place], [place] [address]Dr. Keturah Fisher Anion gap [Moles/Vol] 10.3 mmol/L Normal [place] Comment on above: Performed By: #### A AMANDEEP LIPA, CMP ####[facility] [address] [place], [place] [address]Dr. Keturah Fisher AST [Catalytic activity/Vol] 22 U/L Normal 15-37 [facility] Comment on above: Performed By: #### A AMANDEEP LIPA, CMP ####[facility] [address] [place], [place] [address]Dr. Keturah Fisher Bilirubin [Mass/Vol] 0.3 mg/dL Normal 0.2-1.0 [facility] Comment on above: Performed By: #### A AMANDEEP LIPA, CMP ####[facility] [address] [place], [place] [address]Dr. Keturah Fisher Calcium [Mass/Vol] 9.9 mg/dL Normal 8.5-10.1 [facility] Comment on above: Performed By: #### A ROB BERNSTEIN, CMP ####[facility] [address] [place], [place] [address]Dr. Keturah Fisher Chloride [Moles/Vol] 103 mmol/L Normal 98-107 [facility] Comment on above: Performed By: #### A ROB BERNSTEIN, CMP ####[facility] [address] [place], [place] [address]Dr. Keturah Fisher CO2 [Moles/Vol] 27.6 mmol/L Normal 21.0-32.0 The [facility] Comment on above: Performed By: #### A ROB BERNSTEIN, CMP ####[facility] [address] [place], [place] [address]Dr. Keturah Fisher Creatinine [Mass/Vol] 0.93 mg/dL Normal 0.55-1.02 [facility] Comment on above: Performed By: #### A ROB BERNSTEIN, CMP ####[facility] [address] [place], [place] [address]Dr. Keturah Fisher EGFR-AF ITALIAN >60 Normal >=60 [facility] Comment on above: Performed By: #### A ROB BERNSTEIN, CMP ####[facility] [address] [place], [place] [address]Dr. Keturah Fisher EGFR-NON AF ITALIAN >60 Normal >=60 [facility] Comment on above: Performed By: #### A AMANDEEP LIPA, CMP ####[facility] [address] [place], [place] [address]Dr. Keturah Fisher Globulin (S) [Mass/Vol] 3.5 g/dL Normal [facility] Comment on above: Performed By: #### A AMANDEEP LIPA, CMP ####[facility] [address] [place], [place] [address]Dr. Keturah Fisher Glucose [Mass/Vol] 99 mg/dL Normal 74-106 [facility] Comment on above: Performed By: #### A MY, LIPA, CMP ####[facility] [address] [place] [address]Dr. Keturah Fisher Potassium [Moles/Vol] 3.9 mmol/L Normal 3.5-5.1 [facility] Comment on above: Performed By: #### A AMANDEEP LIPA, CMP ####[facility] [address] [place] [address]Dr. Keturah Fisher Protein [Mass/Vol] 7.5 g/dL Normal 6.4-8.2 [facility] Comment on above: Performed By: #### A AMANDEEP LIPA, CMP ####[facility] [address] [place] [address]Dr. Keturah Fisher Sodium [Moles/Vol] 137 mmol/L Normal 136-145 [facility] Comment on above: Performed By: #### A AMANDEEP LIPA, CMP ####[facility] [address] [place] [address]Dr. Keturah Fisher Urea nitrogen [Mass/Vol] 9.0 mg/dL Normal 7.0-18.0 [facility] Comment on above: Performed By: #### A AMANDEEP LIPA, CMP ####[facility] [address] [place] [address]Dr. Keturah Fisher Urea nitrogen/Creatinine [Mass ratio] 9.7 mg/mg Normal [facility] Comment on above: Performed By: #### A AMANDEEP LIPA, CMP ####[facility] [address] [place] [address]Dr. Keturah Fisher XR ABD FLAT UP_PA Jorje [...] by: LYNNE PERDOMO Date: 2021-07-19 16:57 Normal [facility] COVID Quick Testingon 2021 Result Positive [employer] Other ANES Marcial 11-13-2020 ANES POST HNO ID: [id number] Author: Ion Avila MD Service: Anesthesiology Author [...] 13, 2020 TIME: 12:38 PM PAGER/CONTACT #: [id number] Normal [facility] NURSING PROGon 11-13-2020 NURSING PROG HNO ID: [id number] Author: Viky Nguyen RN Service: Nursing Author [...] None Electronically Signed By: Yaquelin Nguyen RN [facility] NURSING PROG HNO ID: [id number] Author: Landy Smith RN Service: Nursing Author [...] By: Landy Smith RN In Department: [facility] ----- CHIOMA RAINEY ([id number]) 1970 F Date Time Provider Department 11/07/20 NASREEN GORMAN [facility] During your visit today, we [...] have family/friend present for procedure? transport home:Patient/patient ambulatory services representative was told that if they do [...] area. Any barriers to Patient learning: Patient/Patient [employer] responded appropriately on phone. Type of instruction [...] Status:Closed by NASREEN GORMAN on 11/07/20 Normal [facility] Amylaseon 03-26-2020 Amylase [Catalytic activity/Vol] 185 U/L High 28 - 100 U/L [place] CBC Auto Differentialon 03-09 Basophils (Bld) [#/Vol] 0.06 10*3/uL [place] Basophils/100 WBC (Bld) 1 % 0 - 2 % [place] Differential Type NOT REPORTED [place] Eosinophils (Bld) [#/Vol] 0.12 10*3/uL [place] Eosinophils/100 WBC (Bld) 1 % 1 - 4 % [place] Erythrocyte distribution width (RBC) [Ratio] 12.4 % 11.8 - 14.4 % [place] Hematocrit (Bld) [Volume fraction] 40.6 % 36.3 - 47.1 % [place] Hemoglobin (Bld) [Mass/Vol] 13.7 g/dL 11.9 - 15.1 g/dL [place] Immature granulocytes (Bld) [#/Vol] 0 % 0 [place] Immature granulocytes (Bld) [#/Vol] 10*3/uL [place] Lymphocytes (Bld) [#/Vol] 2.62 10*3/uL [place] Lymphocytes/100 WBC (Bld) 27 % 24 - 43 % [place] MCH (RBC) [Entitic mass] 33.4 pg 25.2 - 33.5 pg [place] MCHC (RBC) [Mass/Vol] 33.7 g/dL 28.4 - 34.8 g/dL [place] MCV (RBC) [Entitic vol] 99.0 fL 82.6 - 102.9 fL [place] Monocytes (Bld) [#/Vol] 0.78 10*3/uL [place] Monocytes/100 WBC (Bld) 8 % 3 - 12 % [place] Platelet mean volume (Bld) [Entitic vol] 9.4 fL 8.1 - 13.5 fL [place] Platelets (Bld) [#/Vol] 235 10*3/uL [place] Platelets (Bld) [#/Vol] NOT REPORTED [place] RBC (Bld) [#/Vol] 4.10 10*6/uL 3.95 - 5.11 m/uL [place] RBC morphology finding Nom (Bld) NOT REPORTED [place] Segmented neutrophils/100 WBC (Bld) 63 % 36 - 65 % [place] Segs Absolute 5.96 [place] WBC (Bld) [#/Vol] 9.6 10*3/uL [place] WBC (Bld) [#/Vol] 0.0 10*3/uL 0.0 per 100 WBC [place] WBC Morphology NOT REPORTED [place] Comprehensive Metabolic Pane l w/ Reflex to MGon 03-26-2020 Albumin [Mass/Vol] 4.3 g/dL 3.5 - 5.2 g/dL [place] Albumin/Globulin [Mass ratio] 1.7 {ratio} [place] ALP [Catalytic activity/Vol] 117 U/L High 35 - 104 U/L [place] ALT [Catalytic activity/Vol] 11 U/L 5 - 33 U/L [place] Anion gap [Moles/Vol] 9 mmol/L 9 - 17 mmol/L [place] AST [Catalytic activity/Vol] 18 U/L <32 [place] Bilirubin Ql (U) 0.15 mg/dL Low 0.3 - 1.2 mg/dL [place] Bun/Cre Ratio 12 [place] Calcium [Mass/Vol] 9.7 mg/dL 8.6 - 10. 4 mg/dL [place] Chloride [Moles/Vol] 102 mmol/L 98 - 10 7 mmol/L [place] CO2 [Moles/Vol] 25 mmol/L 20 - 31 mmol/L [place] Creatinine [Mass/Vol] 0.74 mg/dL 0.5 - 0.9 mg/dL [place] GFR >60 >60 mL/min [place] GFR Non- >60 >60 mL/min [place] Glucose [Mass/Vol] 94 mg/dL 70 - 99 mg/dL [place] Potassium [Moles/Vol] 4.2 mmol/L 3.7 - 5.3 mmol/L [place] Protein [Mass/Vol] 6.8 g/dL 6.4 - 8.3 g/dL [place] Sodium [Moles/Vol] 136 mmol/L 135 - 144 mmol/L [place] Urea nitrogen [Mass/Vol] 9 mg/dL 6 - 20 mg/dL [place] Lactic Acidon 03-26-2020 Lactate [Moles/Vol] 1.3 mmol/L 0.5 - 2. 2 mmol/L [place] Lipaseon 03-26-2020 Interpretation and review of laboratory results Abnormal [place] Lipase [Catalytic activity/Vol] 225 U/L Critically high 13 - 60 U/L [place] Metabolic Panelon 03-26-2020 GFR/1.73 sq M predicted among non-blacks MDRD (S/P/Bld) [Vol rate/Area] [place] Comment on above: Average GFR for 50-5 9 years old: 93 mL/min/1.73sq m Chronic Kidney Disease: <60 mL/min/1.73sq m Kidney failure: <15 mL/min/1.73sq m eGFR calculated using average adult body mass. Additional eGFR calculator available at: http://www.Sooqini.Cribspot/multiple_crcl_2012.htm Stage 1: Some kidney damage normal GFR Stage 2: Mild kidney damage GFR 60-89 Stage 3: Moderate kidney damage GFR 30-59 Stage 4: Severe kidney damage GFR 15-29 Stage 5: Severe kidney damage GFR <15 ESRD - chronic treatment by dialysis or transplant Otheron 03-26-2020 Interpretation and review of laboratory results Abnormal [place] SPECIMEN REJECTIONon 021 Ordered Test CDP [place] Reason for Rejection Unable to perform testing: Specimen clotted. [place] Specimen source Nom (Unsp spec) .BLOOD [place] - NOT REPORTED [place] Urinalysis, reflex to micros copicon 03-26-2020 Bilirubin Urine Negative NEGATIVE [place] Color, UA YELLOW YELLOW [place] Glucose, Ur Negative NEGATIVE [place] Ketones Ql (U) Negative NEGATIVE [place] Leukocyte esterase Test strip Ql (U) Negative NEGATIVE [place] Nitrite, Urine Negative NEGATIVE [place] pH, UA 5.5 [place] Protein (U) [Mass/Vol] Negative NEGATIVE [place] Specific Nitro, UA 1.010 [place] Turbidity UA CLEAR CLEAR [place] Urinalysis Comments NOT REPORTED [place] Urine Hgb Negative NEGATIVE [place] Urobilinogen, Urine Normal Normal [place] CBC auto differentialon 08-07 Basophils (Bld) [#/Vol] 0.04 10*3/uL [place] Basophils/100 WBC (Bld) 1 % 0 - 2 % [place] Differential Type NOT REPORTED [place] Eosinophils (Bld) [#/Vol] 0.10 10*3/uL [place] Eosinophils/100 WBC (Bld) 1 % 1 - 4 % [place] Erythrocyte distribution width (RBC) [Ratio] 13.0 % 11.8 - 14.4 % [place] Hematocrit (Bld) [Volume fraction] 35.2 % Low 36.3 - 47.1 % [place] Hemoglobin (Bld) [Mass/Vol] 11.7 g/dL Low 11.9 - 15.1 g/dL [place] Immature granulocytes (Bld) [#/Vol] 10*3/uL [place] Immature granulocytes (Bld) [#/Vol] 0 % 0 [place] Interpretation and review of laboratory results Abnormal [place] Lymphocytes (Bld) [#/Vol] 1.87 10*3/uL [place] Lymphocytes/100 WBC (Bld) 22 % Low 24 - 43 % [place] MCH (RBC) [Entitic mass] 32.5 pg 25.2 - 33.5 pg [place] MCHC (RBC) [Mass/Vol] 33.2 g/dL 28.4 - 34.8 g/dL [place] MCV (RBC) [Entitic vol] 97.8 fL 82.6 - 102.9 fL [place] Monocytes (Bld) [#/Vol] 0.86 10*3/uL [place] Monocytes/100 WBC (Bld) 10 % 3 - 12 % [place] Platelet mean volume (Bld) [Entitic vol] 9.8 fL 8.1 - 13.5 fL [place] Platelets (Bld) [#/Vol] NOT REPORTED [place] Platelets (Bld) [#/Vol] 178 10*3/uL [place] RBC (Bld) [#/Vol] 3.60 10*6/uL Low 3.95 - 5.11 m/uL [place] RBC morphology finding Nom (Bld) NOT REPORTED [place] Segmented neutrophils/100 WBC (Bld) 66 % High 36 - 65 % [place] Segs Absolute 5.53 [place] WBC (Bld) [#/Vol] 0.0 10*3/uL 0.0 per 100 WBC [place] WBC (Bld) [#/Vol] 8.4 10*3/uL [place] WBC Morphology NOT REPORTED [place] Lipaseon 08-25-2019 Lipase [Catalytic activity/Vol] 42 U/L 13 - 60 U/L [place] CBC auto differentialon 08-07 Basophils (Bld) [#/Vol] 0.04 10*3/uL [place] Basophils/100 WBC (Bld) 1 % 0 - 2 % [place] Differential Type NOT REPORTED [place] Eosinophils (Bld) [#/Vol] 0.08 10*3/uL [place] Eosinophils/100 WBC (Bld) 1 % 1 - 4 % [place] Erythrocyte distribution width (RBC) [Ratio] 12.9 % 11.8 - 14.4 % [place] Hematocrit (Bld) [Volume fraction] 35.9 % Low 36.3 - 47.1 % [place] Hemoglobin (Bld) [Mass/Vol] 11.9 g/dL 11.9 - 15.1 g/dL [place] Immature granulocytes (Bld) [#/Vol] 0 % 0 [place] Immature granulocytes (Bld) [#/Vol] 0.03 10*3/uL [place] Interpretation and review of laboratory results Abnormal [place] Lymphocytes (Bld) [#/Vol] 1.79 10*3/uL [place] Lymphocytes/100 WBC (Bld) 22 % Low 24 - 43 % [place] MCH (RBC) [Entitic mass] 32.3 pg 25.2 - 33.5 pg [place] MCHC (RBC) [Mass/Vol] 33.1 g/dL 28.4 - 34.8 g/dL [place] MCV (RBC) [Entitic vol] 97.6 fL 82.6 - 102.9 fL [place] Monocytes (Bld) [#/Vol] 0.75 10*3/uL [place] Monocytes/100 WBC (Bld) 9 % 3 - 12 % [place] Platelet mean volume (Bld) [Entitic vol] 10.1 fL 8.1 - 13.5 fL [place] Platelets (Bld) [#/Vol] 176 10*3/uL [place] Platelets (Bld) [#/Vol] NOT REPORTED [place] RBC (Bld) [#/Vol] 3.68 10*6/uL Low 3.95 - 5.11 m/uL [place] RBC morphology finding Nom (Bld) NOT REPORTED [place] Segmented neutrophils/100 WBC (Bld) 67 % High 36 - 65 % [place] Segs Absolute 5.61 [place] WBC (Bld) [#/Vol] 0.0 10*3/uL 0.0 per 100 WBC [place] WBC (Bld) [#/Vol] 8.3 10*3/uL [place] WBC Morphology NOT REPORTED [place] Lipaseon 08-24-2019 Interpretation and review of laboratory results Abnormal [place] Lipase [Catalytic activity/Vol] 69 U/L High 13 - 60 U/L [place] CBC auto differentialon 08-07 Basophils (Bld) [#/Vol] 0.05 10*3/uL [place] Basophils/100 WBC (Bld) 1 % 0 - 2 % [place] Differential Type NOT REPORTED [place] Eosinophils (Bld) [#/Vol] 0.13 10*3/uL [place] Eosinophils/100 WBC (Bld) 2 % 1 - 4 % [place] Erythrocyte distribution width (RBC) [Ratio] 13.2 % 11.8 - 14.4 % [place] Hematocrit (Bld) [Volume fraction] 36.7 % 36.3 - 47.1 % [place] Hemoglobin (Bld) [Mass/Vol] 11.8 g/dL Low 11.9 - 15.1 g/dL [place] Immature granulocytes (Bld) [#/Vol] 0 % 0 [place] Immature granulocytes (Bld) [#/Vol] 10*3/uL [place] Interpretation and review of laboratory results Abnormal [place] Lymphocytes (Bld) [#/Vol] 2.39 10*3/uL [place] Lymphocytes/100 WBC (Bld) 28 % 24 - 43 % [place] MCH (RBC) [Entitic mass] 32.1 pg 25.2 - 33.5 pg [place] MCHC (RBC) [Mass/Vol] 32.2 g/dL 28.4 - 34.8 g/dL [place] MCV (RBC) [Entitic vol] 99.7 fL 82.6 - 102.9 fL [place] Monocytes (Bld) [#/Vol] 0.77 10*3/uL [place] Monocytes/100 WBC (Bld) 9 % 3 - 12 % [place] Platelet mean volume (Bld) [Entitic vol] 10.1 fL 8.1 - 13.5 fL [place] Platelets (Bld) [#/Vol] 174 10*3/uL [place] Platelets (Bld) [#/Vol] NOT REPORTED [place] RBC (Bld) [#/Vol] 3.68 10*6/uL Low 3.95 - 5.11 m/uL [place] RBC morphology finding Nom (Bld) NOT REPORTED [place] Segmented neutrophils/100 WBC (Bld) 60 % 36 - 65 % [place] Segs Absolute 5.22 [place] WBC (Bld) [#/Vol] 0.0 10*3/uL 0.0 per 100 WBC [place] WBC (Bld) [#/Vol] 8.6 10*3/uL [place] WBC Morphology NOT REPORTED [place] Comprehensive metabolic pane nimesh 08-23-2019 Albumin [Mass/Vol] 3.4 g/dL Low 3.5 - 5.2 g/dL [place] Albumin/Globulin [Mass ratio] 1.7 {ratio} [place] ALP [Catalytic activity/Vol] 102 U/L 35 - 104 U/L [place] ALT [Catalytic activity/Vol] 34 U/L High 5 - 33 U/L [place] Anion gap [Moles/Vol] 7 mmol/L Low 9 - 17 mmol/L [place] AST [Catalytic activity/Vol] 95 U/L High <32 [place] Bilirubin Ql (U) 0.46 mg/dL 0.3 - 1.2 mg/dL [place] Bun/Cre Ratio 11 [place] Calcium [Mass/Vol] 8.4 mg/dL Low 8.6 - 10. 4 mg/dL [place] Chloride [Moles/Vol] 109 mmol/L High 98 - 10 7 mmol/L [place] CO2 [Moles/Vol] 22 mmol/L 20 - 31 mmol/L [place] Creatinine [Mass/Vol] 0.66 mg/dL 0.5 - 0.9 mg/dL [place] GFR >60 >60 mL/min [place] GFR Non- >60 >60 mL/min [place] Glucose [Mass/Vol] 89 mg/dL 70 - 99 mg/dL [place] Potassium [Moles/Vol] 4.3 mmol/L 3.7 - 5.3 mmol/L [place] Protein [Mass/Vol] 5.4 g/dL Low 6.4 - 8.3 g/dL [place] Sodium [Moles/Vol] 138 mmol/L 135 - 144 mmol/L [place] Urea nitrogen [Mass/Vol] 7 mg/dL 6 - 20 mg/dL [place] Lipaseon 08-23-2019 Lipase [Catalytic activity/Vol] 96 U/L High 13 - 60 U/L [place] Metabolic Panelon 08-23-2019 GFR/1.73 sq M predicted among non-blacks MDRD (S/P/Bld) [Vol rate/Area] [place] Comment on above: Stage 1: Some [...] body mass. Additional eGFR calculator available at: http://www.Sooqini.Cribspot/multiple_crcl_2012.htm Otheron 08-23-2019 Interpretation and review of laboratory results Abnormal [place] CBC Auto Differentialon 08-07 Basophils (Bld) [#/Vol] 0.06 10*3/uL [place] Basophils/100 WBC (Bld) 1 % 0 - 2 % [place] Differential Type NOT REPORTED [place] Eosinophils (Bld) [#/Vol] 0.11 10*3/uL [place] Eosinophils/100 WBC (Bld) 1 % 1 - 4 % [place] Erythrocyte distribution width (RBC) [Ratio] 13.2 % 11.8 - 14.4 % [place] Hematocrit (Bld) [Volume fraction] 41.8 % 36.3 - 47.1 % [place] Hemoglobin (Bld) [Mass/Vol] 13.7 g/dL 11.9 - 15.1 g/dL [place] Immature granulocytes (Bld) [#/Vol] 0.03 10*3/uL [place] Immature granulocytes (Bld) [#/Vol] 0 % 0 [place] Interpretation and review of laboratory results Abnormal [place] Lymphocytes (Bld) [#/Vol] 2.23 10*3/uL [place] Lymphocytes/100 WBC (Bld) 24 % 24 - 43 % [place] MCH (RBC) [Entitic mass] 32.6 pg 25.2 - 33.5 pg [place] MCHC (RBC) [Mass/Vol] 32.8 g/dL 28.4 - 34.8 g/dL [place] MCV (RBC) [Entitic vol] 99.5 fL 82.6 - 102.9 fL [place] Monocytes (Bld) [#/Vol] 0.72 10*3/uL [place] Monocytes/100 WBC (Bld) 8 % 3 - 12 % [place] Platelet mean volume (Bld) [Entitic vol] 10.0 fL 8.1 - 13.5 fL [place] Platelets (Bld) [#/Vol] NOT REPORTED [place] Platelets (Bld) [#/Vol] 213 10*3/uL [place] RBC (Bld) [#/Vol] 4.20 10*6/uL 3.95 - 5.11 m/uL [place] RBC morphology finding Nom (Bld) NOT REPORTED [place] Segmented neutrophils/100 WBC (Bld) 66 % High 36 - 65 % [place] Segs Absolute 6.22 [place] WBC (Bld) [#/Vol] 0.0 10*3/uL 0.0 per 100 WBC [place] WBC (Bld) [#/Vol] 9.4 10*3/uL [place] WBC Morphology NOT REPORTED [place] Comprehensive Metabolic Pane nimesh 08-22-2019 Albumin [Mass/Vol] 4.1 g/dL 3.5 - 5.2 g/dL [place] Albumin/Globulin [Mass ratio] 1.6 {ratio} [place] ALP [Catalytic activity/Vol] 109 U/L High 35 - 104 U/L [place] ALT [Catalytic activity/Vol] 13 U/L 5 - 33 U/L [place] Anion gap [Moles/Vol] 9 mmol/L 9 - 17 mmol/L [place] AST [Catalytic activity/Vol] 22 U/L <32 [place] Bilirubin Ql (U) <0.10 Low 0.3 - 1.2 mg/dL [place] Bun/Cre Ratio 13 [place] Calcium [Mass/Vol] 9.2 mg/dL 8.6 - 10. 4 mg/dL [place] Chloride [Moles/Vol] 103 mmol/L 98 - 10 7 mmol/L [place] CO2 [Moles/Vol] 24 mmol/L 20 - 31 mmol/L [place] Creatinine [Mass/Vol] 0.63 mg/dL 0.5 - 0.9 mg/dL [place] GFR >60 >60 mL/min [place] GFR Non- >60 >60 mL/min [place] Glucose [Mass/Vol] 92 mg/dL 70 - 99 mg/dL [place] Interpretation and review of laboratory results Abnormal [place] Potassium [Moles/Vol] 3.8 mmol/L 3.7 - 5.3 mmol/L [place] Protein [Mass/Vol] 6.7 g/dL 6.4 - 8.3 g/dL [place] Sodium [Moles/Vol] 136 mmol/L 135 - 144 mmol/L [place] Urea nitrogen [Mass/Vol] 8 mg/dL 6 - 20 mg/dL [place] Lactic Acid, Plasmaon 2019 Lactate [Moles/Vol] 1.5 mmol/L 0.5 - 2. 2 mmol/L [place] Lactic Acid, Whole Blood NOT REPORTED 0.7 - 2.1 mmol/L [place] Lipaseon 08-22-2019 Interpretation and review of laboratory results Abnormal [place], [place] Lipase [Catalytic activity/Vol] 255 U/L Critically high 13 - 60 U/L [place] Metabolic Panelon 08-22-2019 GFR/1.73 sq M predicted among non-blacks MDRD (S/P/Bld) [Vol rate/Area] [place], [place] Comment on above: Average GFR for 50-5 9 years old: 93 mL/min/1.73sq m Chronic Kidney Disease: <60 mL/min/1.73sq m Kidney failure: <15 mL/min/1.73sq m eGFR calculated using average adult body mass. Additional eGFR calculator available at: [email or web address] Stage 1: Some kidney damage normal GFR Stage 2: Mild kidney damage GFR 60-89 Stage 3: Moderate kidney damage GFR 30-59 Stage 4: Severe kidney damage GFR 15-29 Stage 5: Severe kidney damage GFR <15 ESRD - chronic treatment by dialysis or transplant Urinalysis with Microscopico n 08-22-2019 Amorphous, UA NOT REPORTED None [place] Bacteria, UA NOT REPORTED None [place] Bilirubin Urine Negative NEGATIVE [place] Casts UA NOT REPORTED /LPF [place] Color, UA YELLOW YELLOW [place], [place] Crystals, UA NOT REPORTED None /HPF [place] Epithelial Cells UA 2 TO 5 [place], [place] Glucose, Ur Negative NEGATIVE [place] Interpretation and review of laboratory results Abnormal [place] Ketones Ql (U) Negative NEGATIVE [place] Leukocyte esterase Test strip Ql (U) Negative NEGATIVE [place] Mucus, UA NOT REPORTED None [place] Nitrite, Urine Negative NEGATIVE [place] Other Observations UA NOT REPORTED NOT REQ. M [place] pH, UA 6.0 [place], [place] Protein (U) [Mass/Vol] Negative NEGATIVE [place] RBC (U) [#/Vol] None [place] Renal Epithelial, UA NOT REPORTED 0 /HPF [place] Specific Nitro, UA <1.005 [place] Trichomonas, UA NOT REPORTED None [facility] [place] Turbidity UA CLEAR CLEAR [place] Urinalysis Comments NOT REPORTED [place] Urine Hgb Negative NEGATIVE [place] Urobilinogen, Urine Normal Normal [place] WBC, UA None [place] Yeast, UA NOT REPORTED None [place] - [place] CBC WITH AUTO DIFFERENTIALon 03-04-2018 Basophils Auto #/vol (Bld) 0.07 10*3/uL Invalid Interpretation Code [facility] Basophils/100 WBC Auto (Bld) 0.7 % Invalid Interpretation Code [facility] Eosinophils Auto #/vol (Bld) 0.09 10*3/uL Invalid Interpretation Code [facility] Eosinophils/100 WBC Auto (Bld) 0.9 % Invalid Interpretation Code [facility] Erythrocyte distribution width Auto Entitic volume (RBC) 12.8 % Invalid Interpretation Code 11.6 - 14.8 % [facility] Hematocrit Auto Volume Fraction (Bld) 45.0 % Invalid Interpretation Code 36 - 46 % [facility] Hemoglobin mass conc (Bld) 15.4 g/dL Invalid Interpretation Code 12 - 16 g/dL [facility] Immature granulocytes #/vol (Bld) 0.03 10*3/uL Invalid Interpretation Code [facility] Immature granulocytes/100 WBC (Bld) 0.30 % Invalid Interpretation Code [facility] Comment on above: The IG parameter is the percentage of metamyelocytes, myelocytes, and promyelocytes. Interpretation and review of laboratory results Abnormal Invalid Interpretation Code [facility] Lymphocytes Auto #/vol (Bld) 2.22 10*3/uL Invalid Interpretation Code [facility] Lymphocytes/100 WBC Auto (Bld) 21.0 % Invalid Interpretation Code [facility] MCH Auto Entitic mass (RBC) 33.6 pg Invalid Interpretation Code 26 - 34 pg [facility] MCHC Auto mass conc (RBC) 34.2 g/dL Invalid Interpretation Code 31 - 37 g/dL [facility] MCV Auto Entitic volume (RBC) 98.0 fL Invalid Interpretation Code 80 - 100 fL [facility] Monocytes Auto #/vol (Bld) 0.82 10*3/uL Invalid Interpretation Code [facility] Monocytes/100 WBC Auto (Bld) 7.8 % Invalid Interpretation Code [facility] Neutrophils Auto #/vol (Bld) 7.33 10*3/uL High [facility] Neutrophils/100 WBC Auto (Bld) 69.3 % Invalid Interpretation Code [facility] Nucleated RBC #/vol (Bld) 0.00 10*3/uL Invalid Interpretation Code [facility] Nucleated RBC/100 WBC Ratio (Bld) 0.0 % Invalid Interpretation Code [facility] Platelet mean volume Auto Entitic volume (Bld) 10.1 fL Invalid Interpretation Code 9 - 15.5 fL [facility] Platelets Auto #/vol (Bld) 254 10*3/uL Invalid Interpretation Code [facility] RBC Auto #/vol (Bld) 4.59 10*6/uL Invalid Interpretation Code [facility] WBC Auto #/vol (Bld) 10.56 10*3/uL Invalid Interpretation Code [facility] Chem 7on 03-04-2018 Anion gap 3 molar conc 15 mmol/L Invalid Interpretation Code 10 - 20 mmol/L [facility] Chloride molar conc 103 mmol/L Invalid Interpretation Code 98 - 108 mmol/L [facility] Creatinine mass conc 0.85 mg/dL Invalid Interpretation Code 0.4 - 1.1 mg/dL [facility] GFR/1.73 sq M predicted among non-blacks MDRD vol rate/area (S/P/Bld) The eGFR should be used for monitoring renal function only and not for medication dosing. Invalid Interpretation Code [facility] GFR/1.73 sq M.predicted CKD-EPI vol rate/area (S/P/Bld) 81 Invalid Interpretation Code >=60 mL/min/1.7 3 m2 [facility] Glucose mass conc 92 mg/dL Invalid Interpretation Code 65 - 99 mg/dL [facility] HCO3 molar conc 25 mmol/L Invalid Interpretation Code 21 - 32 mmol/L [facility] Potassium molar conc 4.4 mmol/L Invalid Interpretation Code 3.5 - 5.1 mmol/L [facility] Sodium molar conc 139 mmol/L Invalid Interpretation Code 135 - 145 mmol/L [facility] Urea nitrogen mass conc 7 mg/dL Low 8 - 25 mg/dL [facility] Urea nitrogen/Creatinine mass ratio 8.2 mg/mg Low [facility] Hepatic Function Panel (LFT) on 03-04-2018 Albumin mass conc 4.5 g/dL Invalid Interpretation Code 3.2 - 5.2 g/dL [facility] ALP enzyme act/vol 97 U/L Invalid Interpretation Code 40 - 150 U/L [facility] ALT enzyme act/vol 9 U/L Invalid Interpretation Code 0 - 40 U/L [facility] AST enzyme act/vol 15 U/L Invalid Interpretation Code 0 - 45 U/L [facility] Bilirubin mass conc mg/dL Invalid Interpretation Code 0 - 1.3 mg/dL [facility] Bilirubin.conjugated mass conc mg/dL Invalid Interpretation Code 0 - 0.4 mg/dL [facility] Interpretation and review of laboratory results Normal Invalid Interpretation Code [facility] Protein mass conc 7.2 g/dL Invalid Interpretation Code 6 - 8 g/dL [facility] Lipaseon 03-04-2018 Lipase enzyme act/vol 179 U/L High 15 - 6 5 U/L [facility] Otheron 03-04-2018 Extra Tube Hold for add-ons. Invalid Interpretation Code [facility] Comment on above: Auto resulted. Interpretation and review of laboratory results Abnormal Invalid Interpretation Code [facility] URINALYSISon 03-04-2018 Bacteria Auto Ql (U) Rare Abnormal None Se en /hpf [facility] Bilirubin Ql (U) Negative Invalid Interpretation Code Negative [facility] Clarity Refractometry automated Nom (U) Clear Invalid Interpretation Code Clear [facility] Color Auto Nom (U) Colorless Invalid Interpretation Code Colorless, Yellow [facility] Epithelial cells.squamous Auto #/area (Urine sed) 1 Invalid Interpretation Code [facility] Glucose Automated test strip mass conc (U) Negative Invalid Interpretation Code Negative mg/dL [facility] Hemoglobin Automated test strip Ql (U) Negative Invalid Interpretation Code Negative [facility] Interpretation and review of laboratory results Abnormal Invalid Interpretation Code [facility] Ketones mass conc (U) Negative Invalid Interpretation Code Negative mg/dL [facility] Leukocyte esterase Automated test strip Ql (U) Negative Invalid Interpretation Code Negative [facility] Nitrite Automated test strip Ql (U) Negative Invalid Interpretation Code Negative [facility] pH Test strip (U) 7.0 [pH] Invalid Interpretation Code [facility] Protein mass conc (U) Negative Invalid Interpretation Code Negative mg/dL [facility] RBC Auto #/area (Urine sed) 2 Invalid Interpretation Code [facility] Specific gravity Automated test strip Relative Density (U) 1.004 Low [facility] Urobilinogen Test strip Qn (U) <2.0 Invalid Interpretation Code <2.0 mg/dL [facility] WBC Auto #/area (Urine sed) <1 Invalid Interpretation Code [facility] Microscopic examinat ion is performed on all urinalysis samples and only positive findings are reported. The test for blood on the chemical analytic portion of urinalysis may also be positive due to hemoglobinuria and myoglobinuria and if red blood cells are present they are quantified by microscopic examination. Invalid Interpretation Code [facility] BMPon 08-24-2017 Anion gap 18 mmol/L Invalid Interpretation Code 10 - 20 mmol/L [facility] Bicarbonate (HCO3) 27 mmol/L Invalid Interpretation Code 21 - 32 mmol/L [facility] BUN/Creatinine Ratio 10.1 mg/mg Invalid Interpretation Code 10.0 - 20.0 [facility] Calcium 10.6 mg/dL High 8.4 - 10.2 mg/dL [facility] Chloride 101 mmol/L Invalid Interpretation Code 98 - 108 mmol/L [facility] Creatinine 0.69 mg/dL Invalid Interpretation Code 0.4 - 1.1 mg/dL [facility] eGFR (non-black) 103 mL/min/{1.73_m2} Invalid Interpretation Code >=60 [facility] eGFR (non-black) The eGFR should be u sed for monitoring renal function only and not for medication dosing. Invalid Interpretation Code [facility] Glucose mass conc 105 mg/dL High 65 - 99 mg/dL [facility] Interpretation and review of laboratory results Abnormal Invalid Interpretation Code [facility] Potassium molar conc 4.1 mmol/L Invalid Interpretation Code 3.5 - 5.1 mmol/L [facility] Sodium 142 mmol/L Invalid Interpretation Code 135 - 145 mmol/L [facility] Urea nitrogen 7 mg/dL Low 8 - 25 mg/dL [facility] CBC Auto Differentialon 08-07 Basophils Auto #/vol (Bld) 0.08 K/mcL Invalid Interpretation Code 0.00 - 0.30 [facility] Basophils/100 WBC Auto (Bld) 0.6 % Invalid Interpretation Code [facility] Eosinophils 0.05 K/mcL Invalid Interpretation Code 0.00 - 0.50 [facility] Eosinophils/100 leukocytes 0.4 % Invalid Interpretation Code [facility] Erythrocyte distribution width Auto Entitic volume (RBC) 12.2 % Invalid Interpretation Code 11.6 - 14.8 % [facility] Erythrocytes (RBC) 4.60 M/mcL Invalid Interpretation Code 4.00 - 5.20 [facility] Hematocrit (HCT) 43.4 % Invalid Interpretation Code 36 - 46 % [facility] Hemoglobin mass conc (Bld) 15.2 g/dL Invalid Interpretation Code 12 - 16 g/dL [facility] Immature granulocytes #/vol (Bld) 0.05 K/mcL Invalid Interpretation Code 0.00 - 0.30 [facility] Immature granulocytes/100 WBC (Bld) 0.40 % Invalid Interpretation Code [facility] Comment on above: The IG parameter is the percentage of metamyelocytes, myelocytes, and promyelocytes. Lymphocytes 2.40 K/mcL Invalid Interpretation Code 0.90 - 4.00 [facility] Lymphocytes/100 leukocytes 18.1 % Invalid Interpretation Code [facility] MCH 33.0 pg Invalid Interpretation Code 26 - 34 pg [facility] MCHC mass conc (RBC) 35.0 g/dL Invalid Interpretation Code 31 - 37 g/dL [facility] MCV 94.3 fL Invalid Interpretation Code 80 - 100 fL [facility] Monocytes 0.85 K/mcL Invalid Interpretation Code 0.30 - 0.90 [facility] Monocytes/100 leukocytes 6.4 % Invalid Interpretation Code [facility] Neutrophils 9.81 K/mcL High 1.70 - 7.00 [facility] Neutrophils/100 WBC Auto (Bld) 74.1 % Invalid Interpretation Code [facility] Nucleated erythrocytes 0.00 K/mcL Invalid Interpretation Code 0.00 - 0.00 [facility] Nucleated erythrocytes/100 erythrocytes 0.0 % Invalid Interpretation Code [facility] Platelet mean volume (PMV) 10.0 fL Invalid Interpretation Code 9 - 15.5 fL [facility] Platelets 242 K/mcL Invalid Interpretation Code 150 - 400 [facility] WBC (Leukocytes) 13.24 K/mcL High 4.50 - 11.00 [facility] CBC w/ Diffon 08-24-2017 Creatinine The following orders were created for panel order CBC w/ Diff. Procedure Abnormality Status --------- ------ CBC Auto Differential[[id number]] Abnormal Final result Please view results for these tests on the individual orders. Invalid Interpretation Code [facility] CT ABDOMEN PELVIS WITH IV CO [...] and demonstrated a prominent signal loss on thg-tl-[id number] images on MRI performed 09/06/2014, compatible with [...] The ovaries probably remain.5. Small left adrenal adenoma.JRS/Rickytakale n ID: [id number] by: PONCHO GALAVIZ on ThuAug 24, 2017 3:53:38 PM EDTTranscribed by: RON KELLOGG on ThuAug 24, 2017 4:00:38 PM EDTFinalized by: PONCHO GALAVIZ on ThuAug 24, 2017 4:03:34 PM EDT Normal [facility] Comment on above: Order Comment: Reaso n for exam?:abd painInjury/Trauma or Illness?:Illness/OtherHow long have you had these symptoms (acute/chronic)?:ChronicType of Exam?:Subsequent/Follow-upAdditional signs and symptoms?:chronic pancreatitis CT Abdomen Pelvis With IV Co ntrast Onlyon 08-24-2017 CT Abdomen Pelvis With IV Contrast Only Interface, Rad In [facility] - 08/24/2017 4:06 PM EDT EXAMINATION: CT [...] and demonstrated a prominent signal loss on nry-iy-rivxg images on MRI performed 09/06/2014, compatible with [...] probably remain. 5. Small left adrenal adenoma. Slicethepie/eKonnekt Workstation ID: [id number] Invalid Interpretation Code [facility] CT Abdomen Pelvis With IV Contrast [...] and demonstrated a prominent signal loss on ahb-dx-euzkk images on MRI performed 09/06/2014, compatible with [...] suspicious focal osseous lesions. Invalid Interpretation Code [facility] CT Abdomen Pelvis With IV Contrast [...] probably remain. 5. Small left adrenal adenoma. Slicethepie/[employer] Workstation ID: [id number] Invalid Interpretation Code [facility] Hepatic Function Panel (LFT) on 08-24-2017 Alanine aminotransferase (ALT) 14 U/L Invalid Interpretation Code 0 - 40 U/L [facility] Albumin 4.7 g/dL Invalid Interpretation Code 3.2 - 5.2 g/dL [facility] Alkaline phosphatase (ALP) 91 U/L Invalid Interpretation Code 40 - 150 U/L [facility] Aspartate aminotransferase (AST) 17 U/L Invalid Interpretation Code 0 - 45 U/L [facility] Bilirubin (conjugated) mg/dL Invalid Interpretation Code 0 - 0.4 mg/dL [facility] Bilirubin (total) mg/dL Invalid Interpretation Code 0 - 1.3 mg/dL [facility] Interpretation and review of laboratory results Normal Invalid Interpretation Code [facility] Protein 7.4 g/dL Invalid Interpretation Code 6 - 8 g/dL [facility] Lactic Acid, Plasmaon 2017 Lactate 1.0 mmol/L Invalid Interpretation Code 0.6 - 2 mmol/L [facility] Light Blue Topon 08-24-2017 Extra Tube Hold for add-ons. Invalid Interpretation Code [facility] Comment on above: Auto resulted. Lipaseon 08-24-2017 Lipase 51 U/L Invalid Interpretation Code 15 - 65 U/L [facility] [place] Topon 08-24-2017 [place] Top Invalid Interpretation Code [facility] [place] Drawon 08-24-2017 Creatinine The following orders were created for panel order [place] Draw. Procedure Abnormality Status --------- ------ Gold Top[[id number]] Final result Light Blue Top[[id number]] Final result [place] Top[[id number]] Final result Please view results for these tests on the individual orders. Invalid Interpretation Code [facility] Urinalysis[facility] 08-24-2017 Bilirubin Ql (U) Negative Invalid Interpretation Code Negative [facility] Blood, Urine Negative Invalid Interpretation Code Negative [facility] Interpretation and review of laboratory results Abnormal Invalid Interpretation Code [facility] Nitrite, Urine Negative Invalid Interpretation Code Negative [facility] Squamous Epithelial 5 /hpf High 0 - [address] [facility] Transitional Epithelial <1 Invalid Interpretation Code 0 - 1 /hpf [facility] Urine, bacteria in sediment Rare Abnormal None Seen /hpf [facility] Urine, clarity Hazy Abnormal Clear [facility] Urine, color Yellow Invalid Interpretation Code Colorless, Yellow [facility] Urine, erythrocytes 1 /hpf Invalid Interpretation Code 0 - 3 [facility] Urine, glucose presence Negative Invalid Interpretation Code Negative mg/dL [facility] Urine, ketones presence Negative Invalid Interpretation Code Negative mg/dL [facility] Urine, leukocyte esterase presence Negative Invalid Interpretation Code Negative [facility] Urine, pH 7.0 [pH] Invalid Interpretation Code 5.0 - 7.0 [facility] Urine, protein Negative Invalid Interpretation Code Negative mg/dL [facility] Urine, specific gravity 1.006 1 Invalid Interpretation Code 1.005 - 1.025 [facility] Urine, urobilinogen <2.0 Invalid Interpretation Code <2.0 mg/dL [facility] WBCs, Urine 1 /hpf Invalid Interpretation Code 0 - 5 [facility] Urinalysis Microscopic examinat ion is performed on all urinalysis samples and only positive findings are reported. The test for blood on the chemical analytic portion of urinalysis may also be positive due to hemoglobinuria and myoglobinuria and if red blood cells are present they are quantified by microscopic examination. Invalid Interpretation Code [facility] BMPon 06-09-2017 Anion gap 18 mmol/L Invalid Interpretation Code 10 - 20 mmol/L [facility] Bicarbonate (HCO3) 21 mmol/L Invalid Interpretation Code 21 - 32 mmol/L [facility] BUN/Creatinine Ratio 11.0 mg/mg Invalid Interpretation Code 10.0 - 20.0 [facility] Calcium 10.2 mg/dL Invalid Interpretation Code 8.4 - 10.2 mg/dL [facility] Chloride 102 mmol/L Invalid Interpretation Code 98 - 108 mmol/L [facility] Creatinine 0.73 mg/dL Invalid Interpretation Code 0.4 - 1.1 mg/dL [facility] eGFR (non-black) The eGFR should be u sed for monitoring renal function only and not for medication dosing. Invalid Interpretation Code [facility] eGFR (non-black) 98 mL/min/{1.73_m2} Invalid Interpretation Code >=60 [facility] Glucose 80 mg/dL Invalid Interpretation Code 65 - 99 mg/dL [facility] Potassium 4.3 mmol/L Invalid Interpretation Code 3.5 - 5.1 mmol/L [facility] Sodium 137 mmol/L Invalid Interpretation Code 135 - 145 mmol/L [facility] Urea nitrogen 8 mg/dL Invalid Interpretation Code 8 - 25 mg/dL [facility] CBC Auto Differentialon - Basophils 0.07 K/mcL Invalid Interpretation Code 0.00 - 0.30 [facility] Basophils/100 leukocytes 0.7 % Invalid Interpretation Code [facility] Eosinophils 0.10 K/mcL Invalid Interpretation Code 0.00 - 0.50 [facility] Eosinophils/100 leukocytes 1.0 % Invalid Interpretation Code [facility] Erythrocytes (RBC) 4.75 M/mcL Invalid Interpretation Code 4.00 - 5.20 [facility] Erythrocytes (RBC) 0.00 K/mcL Invalid Interpretation Code 0.00 - 0.00 [facility] Hematocrit (HCT) 46.1 % High 36 - 46 % [facility] Hemoglobin (HGB) 16.1 g/dL High 12 - 16 g/dL [facility] IG Absolute 0.02 K/mcL Invalid Interpretation Code 0.00 - 0.30 [facility] IG Percent 0.20 % Invalid Interpretation Code [facility] Lymphocytes 1.75 K/mcL Invalid Interpretation Code 0.90 - 4.00 [facility] Lymphocytes/100 leukocytes 17.9 % Invalid Interpretation Code [facility] MCH 33.9 pg Invalid Interpretation Code 26 - 34 pg [facility] MCHC 34.9 g/dL Invalid Interpretation Code 31 - 37 g/dL [facility] MCV 97.1 fL Invalid Interpretation Code 80 - 100 fL [facility] Monocytes 0.88 K/mcL Invalid Interpretation Code 0.30 - 0.90 [facility] Monocytes/100 leukocytes 9.0 % Invalid Interpretation Code [facility] Neutrophils 6.98 K/mcL Invalid Interpretation Code 1.70 - 7.00 [facility] Neutrophils/100 leukocytes 71.2 % Invalid Interpretation Code [facility] Nucleated erythrocytes/100 erythrocytes 0.0 % Invalid Interpretation Code [facility] Platelet mean volume (PMV) 10.9 fL Invalid Interpretation Code 9 - 15.5 fL [facility] Platelets 223 K/mcL Invalid Interpretation Code 150 - 400 [facility] RDW-CA 12.8 % Invalid Interpretation Code 11.6 - 14.8 % [facility] WBC (Leukocytes) 9.80 K/mcL Invalid Interpretation Code 4.50 - 11.00 [facility] Interpretation and review of laboratory results Abnormal Invalid Interpretation Code [facility] CBC w/ Diffon 06-09-2017 Creatinine The following orders were created for panel order CBC w/ Diff. Procedure Abnormality Status --------- ------ CBC Auto Differential[[id number]] Abnormal Final result Please view results for these tests on the individual orders. Invalid Interpretation Code [facility] Hepatic Function Panel (LFT) on 06-09-2017 Alanine aminotransferase (ALT) 10 U/L Invalid Interpretation Code 0 - 40 U/L [facility] Albumin 4.4 g/dL Invalid Interpretation Code 3.2 - 5.2 g/dL [facility] Alkaline phosphatase (ALP) 89 U/L Invalid Interpretation Code 40 - 150 U/L [facility] Aspartate aminotransferase (AST) 20 U/L Invalid Interpretation Code 0 - 45 U/L [facility] Bilirubin (conjugated) mg/dL Invalid Interpretation Code 0 - 0.4 mg/dL [facility] Bilirubin (total) mg/dL Invalid Interpretation Code 0 - 1.3 mg/dL [facility] Interpretation and review of laboratory results Normal Invalid Interpretation Code [facility] Protein 7.3 g/dL Invalid Interpretation Code 6 - 8 g/dL [facility] Lipaseon 06-09-2017 Lipase 50 U/L Invalid Interpretation Code 15 - 65 U/L [facility] [place] Drawon 06-09-2017 Creatinine The following orders were created for panel order [place] Draw. Procedure Abnormality Status --------- ------ Urine Container[[id number]] Final result Please view results for these tests on the individual orders. Invalid Interpretation Code [facility] Urinalysison 06-09-2017 Bilirubin, Urine Negative Invalid Interpretation Code Negative [facility] Blood, Urine Negative Invalid Interpretation Code Negative [facility] Calcium Many Abnormal None Seen /hpf [facility] Mucus, Urine Rare Invalid Interpretation Code None Seen, Rare /lpf [facility] Nitrite, Urine Negative Invalid Interpretation Code Negative [facility] RBCs, Urine 1 /hpf Invalid Interpretation Code 0 - 3 [facility] Squamous Epithelial 4 /hpf Invalid Interpretation Code 0 - 4 [facility] Urine, bacteria in sediment None Seen Invalid Interpretation Code None Seen /hpf [facility] Urine, clarity Cloudy Abnormal Clear [facility] Urine, color Yellow Invalid Interpretation Code Colorless, Yellow [facility] Urine, glucose presence Negative Invalid Interpretation Code Negative mg/dL [facility] Urine, ketones presence Trace Abnormal Negative mg/dL [facility] Urine, leukocyte esterase presence Negative Invalid Interpretation Code Negative [facility] Urine, pH 5.0 [pH] Invalid Interpretation Code 5.0 - 7.0 [facility] Urine, protein Negative Invalid Interpretation Code Negative mg/dL [facility] Urine, specific gravity 1.024 1 Invalid Interpretation Code 1.005 - 1.025 [facility] Urine, urobilinogen 2.0 mg/dL Abnormal <2.[address] [facility] WBCs, Urine 1 /hpf Invalid Interpretation Code 0 - 5 [facility] Urinalysis Microscopic examinat ion is performed on all urinalysis samples and only positive findings are reported. The test for blood on the chemical analytic portion of urinalysis may also be positive due to hemoglobinuria and myoglobinuria and if red blood cells are present they are quantified by microscopic examination. Invalid Interpretation Code [facility] Urine Containeron 06-09-2017 Urine Container Invalid Interpretation Code [facility] CBCon 05-15-2017 Erythrocytes (RBC) 3.76 M/mcL Low 4.00 - 5.20 [facility] Erythrocytes (RBC) 0.00 K/mcL Invalid Interpretation Code 0.00 - 0.00 [facility] Hematocrit (HCT) 37.1 % Invalid Interpretation Code 36 - 46 % [facility] Hemoglobin (HGB) 12.4 g/dL Invalid Interpretation Code 12 - 16 g/dL [facility] MCH 33.0 pg Invalid Interpretation Code 26 - 34 pg [facility] MCHC 33.4 g/dL Invalid Interpretation Code 31 - 37 g/dL [facility] MCV 98.7 fL Invalid Interpretation Code 80 - 100 fL [facility] Nucleated erythrocytes/100 erythrocytes 0.0 % Invalid Interpretation Code [facility] Platelet mean volume (PMV) 9.9 fL Invalid Interpretation Code 9 - 15.5 fL [facility] Platelets 197 K/mcL Invalid Interpretation Code 150 - 400 [facility] RDW-CA 12.6 % Invalid Interpretation Code 11.6 - 14.8 % [facility] WBC (Leukocytes) 7.55 K/mcL Invalid Interpretation Code 4.50 - 11.00 [facility] Comprehensive Metabolic Pane nimesh 05-15-2017 Alanine aminotransferase (ALT) 9 U/L Invalid Interpretation Code 0 - 40 U/L [facility] Albumin 3.3 g/dL Invalid Interpretation Code 3.2 - 5.2 g/dL [facility] Alkaline phosphatase (ALP) 73 U/L Invalid Interpretation Code 40 - 150 U/L [facility] Anion gap 15 mmol/L Invalid Interpretation Code 10 - 20 mmol/L [facility] Aspartate aminotransferase (AST) 13 U/L Invalid Interpretation Code 0 - 45 U/L [facility] Bicarbonate (HCO3) 23 mmol/L Invalid Interpretation Code 21 - 32 mmol/L [facility] Bilirubin (total) 0.2 mg/dL Invalid Interpretation Code 0 - 1.3 mg/dL [facility] BUN/Creatinine Ratio 9.4 mg/mg Low 10.0 - 20.0 [facility] Calcium 8.4 mg/dL Invalid Interpretation Code 8.4 - 10.2 mg/dL [facility] Chloride 108 mmol/L Invalid Interpretation Code 98 - 108 mmol/L [facility] Creatinine 0.64 mg/dL Invalid Interpretation Code 0.4 - 1.1 mg/dL [facility] eGFR (non-black) The eGFR should be u sed for monitoring renal function only and not for medication dosing. Invalid Interpretation Code [facility] eGFR (non-black) 107 mL/min/{1.73_m2} Invalid Interpretation Code >=60 [facility] Glucose 91 mg/dL Invalid Interpretation Code 65 - 99 mg/dL [facility] Potassium 4.0 mmol/L Invalid Interpretation Code 3.5 - 5.1 mmol/L [facility] Protein 5.3 g/dL Low 6 - 8 g/dL [facility] Sodium 142 mmol/L Invalid Interpretation Code 135 - 145 mmol/L [facility] Urea nitrogen 6 mg/dL Low 8 - 25 mg/dL [facility] Lipaseon 05-15-2017 Interpretation and review of laboratory results Normal Invalid Interpretation Code [facility] Lipase 31 U/L Invalid Interpretation Code 15 - 65 U/L [facility] Lipid Panelon 05-15-2017 Cholesterol 193 mg/dL Invalid Interpretation Code 100 - 199 mg/dL [facility] Cholesterol to HDL Ratio 7.1 {ratio} Invalid Interpretation Code [facility] HDL Cholesterol 27 mg/dL Low 40 - 59 mg/dL [facility] HDL Cholesterol 166 mg/dL Invalid Interpretation Code [facility] Interpretation and review of laboratory results Abnormal Invalid Interpretation Code [facility] LDL Cholesterol 108 mg/dL Invalid Interpretation Code 10 - 130 mg/dL [facility] Triglyceride 291 mg/dL High 30 - 150 mg/dL [facility] BMPon 05-14-2017 Anion gap 18 mmol/L Invalid Interpretation Code 10 - 20 mmol/L [facility] Bicarbonate (HCO3) 25 mmol/L Invalid Interpretation Code 21 - 32 mmol/L [facility] BUN/Creatinine Ratio 11.8 mg/mg Invalid Interpretation Code 10.0 - 20.0 [facility] Calcium 10.7 mg/dL High 8.4 - 10.2 mg/dL [facility] Chloride 102 mmol/L Invalid Interpretation Code 98 - 108 mmol/L [facility] Creatinine 0.68 mg/dL Invalid Interpretation Code 0.4 - 1.1 mg/dL [facility] eGFR (non-black) The eGFR should be u sed for monitoring renal function only and not for medication dosing. Invalid Interpretation Code [facility] eGFR (non-black) 105 mL/min/{1.73_m2} Invalid Interpretation Code >=60 [facility] Glucose 86 mg/dL Invalid Interpretation Code 65 - 99 mg/dL [facility] Potassium 4.0 mmol/L Invalid Interpretation Code 3.5 - 5.1 mmol/L [facility] Sodium 141 mmol/L Invalid Interpretation Code 135 - 145 mmol/L [facility] Urea nitrogen 8 mg/dL Invalid Interpretation Code 8 - 25 mg/dL [facility] CBC Auto Differentialon Basophils 0.09 K/mcL Invalid Interpretation Code 0.00 - 0.30 [facility] Basophils/100 leukocytes 0.8 % Invalid Interpretation Code [facility] Eosinophils 0.08 K/mcL Invalid Interpretation Code 0.00 - 0.50 [facility] Eosinophils/100 leukocytes 0.7 % Invalid Interpretation Code [facility] Erythrocytes (RBC) 0.00 K/mcL Invalid Interpretation Code 0.00 - 0.00 [facility] Erythrocytes (RBC) 4.96 M/mcL Invalid Interpretation Code 4.00 - 5.20 [facility] Hematocrit (HCT) 48.5 % High 36 - 46 % [facility] Hemoglobin (HGB) 16.6 g/dL High 12 - 16 g/dL [facility] IG Absolute 0.04 K/mcL Invalid Interpretation Code 0.00 - 0.30 [facility] IG Percent 0.40 % Invalid Interpretation Code [facility] Interpretation and review of laboratory results Abnormal Invalid Interpretation Code [facility] Lymphocytes 1.89 K/mcL Invalid Interpretation Code 0.90 - 4.00 [facility] Lymphocytes/100 leukocytes 17.7 % Invalid Interpretation Code [facility] MCH 33.5 pg Invalid Interpretation Code 26 - 34 pg [facility] MCHC 34.2 g/dL Invalid Interpretation Code 31 - 37 g/dL [facility] MCV 97.8 fL Invalid Interpretation Code 80 - 100 fL [facility] Monocytes 0.74 K/mcL Invalid Interpretation Code 0.30 - 0.90 [facility] Monocytes/100 leukocytes 6.9 % Invalid Interpretation Code [facility] Neutrophils 7.86 K/mcL High 1.70 - 7.00 [facility] Neutrophils/100 leukocytes 73.5 % Invalid Interpretation Code [facility] Nucleated erythrocytes/100 erythrocytes 0.0 % Invalid Interpretation Code [facility] Platelet mean volume (PMV) 9.8 fL Invalid Interpretation Code 9 - 15.5 fL [facility] Platelets 275 K/mcL Invalid Interpretation Code 150 - 400 [facility] RDW-CA 12.8 % Invalid Interpretation Code 11.6 - 14.8 % [facility] WBC (Leukocytes) 10.70 K/mcL Invalid Interpretation Code 4.50 - 11.00 [facility] CBC w/ Diffon 05-14-2017 Creatinine The following orders were created for panel order CBC w/ Diff. Procedure Abnormality Status --------- ------ CBC Auto Differential[[id number]] Abnormal Final result Please view results for these tests on the individual orders. Invalid Interpretation Code [facility] CT ABDOMEN PELVIS WITH IV CO [...] appendix in the left lower pelvis.Workstation ID: [id number] by: ERROL ANN on ThuMay 14, 2017 4:08:10 PM ESTTranscribed by: ERROL ANN on ThuMay 14, 2017 4:08:10 PM ESTFinalized by: ERROL ANN on ThuMay 14, 2017 4:08:10 PM EST Normal [facility] Comment on above: Order Comment: [...] at L1-L2 and L4-L5. Invalid Interpretation Code [facility] CT Abdomen Pelvis With IV Contrast Only Interface, Rad In Affinioq - 05/14/2017 4:10 PM EST EXAMINATION: CT [...] in the left lower pelvis. Workstation ID: [id number] Invalid Interpretation Code [facility] [employer] [facility] CT Abdomen Pelvis With IV Contrast [...] in the left lower pelvis. Workstation ID: [id number] Invalid Interpretation Code [facility] [employer] [facility] Ruff Topon 05-14-2017 Extra Tube Hold for add-ons. Invalid Interpretation Code [facility] Hepatic Function Panel (LFT) on 05-14-2017 Alanine aminotransferase (ALT) 13 U/L Invalid Interpretation Code 0 - 40 U/L [facility] Albumin 4.8 g/dL Invalid Interpretation Code 3.2 - 5.2 g/dL [facility] Alkaline phosphatase (ALP) 102 U/L Invalid Interpretation Code 40 - 150 U/L [facility] Aspartate aminotransferase (AST) 20 U/L Invalid Interpretation Code 0 - 45 U/L [facility] Bilirubin (conjugated) mg/dL Invalid Interpretation Code 0 - 0.4 mg/dL [facility] Bilirubin (total) 0.2 mg/dL Invalid Interpretation Code 0 - 1.3 mg/dL [facility] Interpretation and review of laboratory results Normal Invalid Interpretation Code [facility] Protein 7.9 g/dL Invalid Interpretation Code 6 - 8 g/dL [facility] Lipaseon 05-14-2017 Lipase 137 U/L High 15 - 65 U/L [facility] [place] Topon 05-14-2017 [place] Top Invalid Interpretation Code [facility] [place] Drawon 05-14-2017 Creatinine The following orders were created for panel order [place] Draw. Procedure Abnormality Status --------- ------ Gold Top[[id number]] Final result [place] Top[[id number]] Final result Ruff Top[[id number]] Final result [place] Top[[id number]] Final result Please view results for these tests on the individual orders. Invalid Interpretation Code [facility] Urinalysison 05-14-2017 Bilirubin, Urine Negative Invalid Interpretation Code Negative [facility] Blood, Urine Negative Invalid Interpretation Code Negative [facility] Interpretation and review of laboratory results Abnormal Invalid Interpretation Code [facility] Mucus, Urine Rare Invalid Interpretation Code None Seen, Rare /lpf [facility] Nitrite, Urine Negative Invalid Interpretation Code Negative [facility] RBCs, Urine 2 /hpf Invalid Interpretation Code 0 - 3 [facility] Squamous Epithelial 3 /hpf Invalid Interpretation Code 0 - 4 [facility] Urine, bacteria in sediment Rare Abnormal None Seen /hpf [facility] Urine, clarity Clear Invalid Interpretation Code Clear [facility] Urine, color Yellow Invalid Interpretation Code Colorless, Yellow [facility] Urine, glucose presence Negative Invalid Interpretation Code Negative mg/dL [facility] Urine, ketones presence Negative Invalid Interpretation Code Negative mg/dL [facility] Urine, leukocyte esterase presence Negative Invalid Interpretation Code Negative [facility] Urine, pH 5.0 [pH] Invalid Interpretation Code 5.0 - 7.0 [facility] Urine, protein Negative Invalid Interpretation Code Negative mg/dL [facility] Urine, specific gravity 1.006 1 Invalid Interpretation Code 1.005 - 1.025 [facility] Urine, urobilinogen <2.0 Invalid Interpretation Code <2.0 mg/dL [facility] WBCs, Urine 1 /hpf Invalid Interpretation Code 0 - 5 [facility] Urinalysis Microscopic examinat ion is performed on all urinalysis samples and only positive findings are reported. The test for blood on the chemical analytic portion of urinalysis may also be positive due to hemoglobinuria and myoglobinuria and if red blood cells are present they are quantified by microscopic examination. Invalid Interpretation Code [facility] Vital Signs Date Time Vital Sign Value Performing Clinician Facility 04-07-2024 16:14-0500 Heart rate 93 /min Peter Baca MD Work Phone: [facility] 04-07-2024 16:14-0500 SaO2% (BldA) [Mass fraction] 100 % Peter Baca MD Work Phone: [facility] 04-07-2024 13:10-0500 Body height 157.5 cm Peter Baca MD Work Phone: [facility] 04-07-2024 13:10-0500 Body mass index (BMI) [Ratio] 22.86 kg/m2 Peter Baca MD Work Phone: [facility] 04-07-2024 13:10-0500 Body temperature 97.9 [degF] Peter Baca MD Work Phone: [facility] 04-07-2024 13:10-0500 Body weight 56.7 kg Peter Baca MD Work Phone: [facility] 04-07-2024 13:10-0500 Diastolic blood pressure 88 mm[Hg] Peter Baca MD Work Phone: [facility] 04-07-2024 13:10-0500 Respiratory rate 16 /min Peter Baca MD Work Phone: [facility] 04-07-2024 13:10-0500 Systolic blood pressure 139 mm[Hg] Peter Baca MD Work Phone: [facility] 01-19-2024 11:30-0500 Diastolic blood pressure 63 mm[Hg] Sabrina Dee MD, MPH Work Phone: [facility] 01-19-2024 11:30-0500 Heart rate 73 /min Sabrina Dee MD, MPH Work Phone: [facility] 01-19-2024 11:30-0500 Respiratory rate 18 /min Sabrina Dee MD, MPH Work Phone: [facility] 01-19-2024 11:30-0500 SaO2% (BldA) [Mass fraction] 99 % Sabrina Dee MD, MPH Work Phone: [facility] 01-19-2024 11:30-0500 Systolic blood pressure 120 mm[Hg] Sabrina Dee MD, MPH Work Phone: [facility] 01-19-2024 09:54-0500 Body temperature 98.01 [degF] Sabrina Dee MD, MPH Work Phone: [facility] 01-07-2024 16:13-0400 Diastolic blood pressure 41 mm[Hg] [facility] 01-07-2024 16:13-0400 Heart rate 82 /min [facility] 01-07-2024 16:13-0400 Respiratory rate 15 /min [facility] 01-07-2024 16:13-0400 Systolic blood pressure 127 mm[Hg] [facility] 01-07-2024 14:14-0400 Body height 157.5 cm [facility] 01-07-2024 14:14-0400 Body mass index (BMI) [Ratio] 21.95 kg/m2 [facility] 01-07-2024 14:14-0400 Body temperature 98.1 [degF] [facility] 01-07-2024 14:14-0400 Body weight 54.43 kg [facility] 01-07-2024 14:14-0400 SaO2% (BldA) [Mass fraction] 99 % [facility] 09-29-2023 21:39-0400 Heart rate 102 /min [facility] 09-29-2023 21:29-0400 SaO2% (BldA) [Mass fraction] 96 % [facility] 09-29-2023 20:32-0400 Diastolic blood pressure 94 mm[Hg] [facility] 09-29-2023 20:32-0400 Systolic blood pressure 124 mm[Hg] [facility] 09-29-2023 18:57-0400 Body height 157.5 cm [facility] 09-29-2023 18:57-0400 Body mass index (BMI) [Ratio] 22.86 kg/m2 [facility] 09-29-2023 18:57-0400 Body temperature 98.1 [degF] [facility] 09-29-2023 18:57-0400 Body weight 56.7 kg [facility] 09-29-2023 18:57-0400 Respiratory rate 18 /min [facility] 09-08-2023 09:00-0400 Diastolic blood pressure 54 mm[Hg] Sabrina Dee MD, MPH Work Phone: [facility] 09-08-2023 09:00-0400 Heart rate 83 /min Sabrina Dee MD, MPH Work Phone: [facility] 09-08-2023 09:00-0400 Respiratory rate 13 /min Sabrina Dee MD, MPH Work Phone: [phone] [place] [address] 09-08-2023 09:00-0400 SaO2% (BldA) [Mass fraction] 95 % Sabrina Dee MD, MPH Work Phone: [facility] 09-08-2023 09:00-0400 Systolic blood pressure 94 mm[Hg] Sabrina Dee MD, MPH Work Phone: [facility] 09-08-2023 08:04-0400 Body temperature 97.7 [degF] Sabrina Dee MD, MPH Work Phone: [phone] [address] 09-08-2023 06:43-0400 Body height 157.5 cm Sabrina Dee MD, MPH Work Phone: [phone] [address] 05-11-2023 09:01-0500 Body height 157.5 cm Sabrina Dee MD, MPH Work Phone: [facility] 05-11-2023 09:01-0500 Body mass index (BMI) [Ratio] 21 kg/m2 Sabrina Dee MD, MPH Work Phone: [facility] 05-11-2023 09:01-0500 Body weight 52.07 kg Sabrina Dee MD, MPH Work Phone: [facility] 05-11-2023 09:01-0500 Diastolic blood pressure 48 mm[Hg] Sabrina Dee MD, MPH Work Phone: [facility] 05-11-2023 09:01-0500 Heart rate 107 /min Sabrina Dee MD, MPH Work Phone: [facility] 05-11-2023 09:01-0500 SaO2% (BldA) [Mass fraction] 97 % Sabrina Dee MD, MPH Work Phone: [facility] 05-11-2023 09:01-0500 Systolic blood pressure 110 mm[Hg] Sabrina Dee MD, MPH Work Phone: [facility] 04-18-2023 17:39-0500 Diastolic blood pressure 79 mm[Hg] [facility] 04-18-2023 17:39-0500 Heart rate 114 /min [facility] 04-18-2023 17:39-0500 Respiratory rate 16 /min [facility] 04-18-2023 17:39-0500 SaO2% (BldA) [Mass fraction] 98 % [facility] 04-18-2023 17:39-0500 Systolic blood pressure 168 mm[Hg] [facility] 04-18-2023 15:29-0500 Body height 157.[address] [facility] 04-18-2023 15:29-0500 Body temperature 99.3 [degF] [facility] 04-18-2023 15:29-0500 Body weight 51.[address] [facility] 04-11-2023 23:50-0500 Diastolic blood pressure 82 mm[Hg] [facility] 04-11-2023 23:50-0500 Heart rate 106 /min [facility] 04-11-2023 23:50-0500 SaO2% (BldA) [Mass fraction] 97 % [facility] 04-11-2023 23:50-0500 Systolic blood pressure 151 mm[Hg] [facility] 04-11-2023 22:25-0500 Respiratory rate 18 /min [facility] 04-11-2023 21:20-0500 Body height 157.[address] [facility] 04-11-2023 21:20-0500 Body temperature 97.2 [degF] [facility] 04-11-2023 21:20-0500 Body weight [address] [facility] 04-02-2023 19:20-0500 Diastolic blood pressure 74 mm[Hg] [facility] 04-02-2023 19:20-0500 Heart rate 91 /min [facility] 04-02-2023 19:20-0500 Respiratory rate 18 /min [facility] 04-02-2023 19:20-0500 SaO2% (BldA) [Mass fraction] 96 % [facility] 04-02-2023 19:20-0500 Systolic blood pressure 137 mm[Hg] [facility] 04-02-2023 13:45-0500 Body height 157.[address] [facility] 04-02-2023 13:45-0500 Body temperature 97.6 [degF] [facility] 04-02-2023 13:45-0500 Body weight [address] [facility] 11-09-2022 16:30-0400 Diastolic blood pressure 81 mm[Hg] [facility] 11-09-2022 16:30-0400 Heart rate 78 /min [facility] 11-09-2022 16:30-0400 Respiratory rate 18 /min [facility] 11-09-2022 16:30-0400 SaO2% (BldA) [Mass fraction] 99 % [facility] 11-09-2022 16:30-0400 Systolic blood pressure 141 mm[Hg] [facility] 11-09-2022 13:47-0400 Body height 160.[address] [facility] 11-09-2022 13:47-0400 Body temperature 98.2 [degF] [facility] 11-09-2022 13:47-0400 Body weight 54.[address] [facility] 08-12-2022 13:15-0400 Diastolic blood pressure 68 mm[Hg] Sabrina Dee MD, MPH Work Phone: [facility] 08-12-2022 13:15-0400 Heart rate 67 /min Sabrina Dee MD, MPH Work Phone: [facility] 08-12-2022 13:15-0400 Respiratory rate 22 /min Sabrina Dee MD, MPH Work Phone: [facility] 08-12-2022 13:15-0400 SaO2% (BldA) [Mass fraction] 99 % Sabrina Dee MD, MPH Work Phone: [facility] 08-12-2022 13:15-0400 Systolic blood pressure 142 mm[Hg] Sabrina Dee MD, MPH Work Phone: [facility] 08-12-2022 11:45-0400 Body temperature 97.81 [degF] Sabrina Dee MD, MPH Work Phone: [facility] 08-12-2022 10:34-0400 Body height 157.5 cm Sabrina Dee MD, MPH Work Phone: [facility] 06-16-2022 10:52-0400 Body mass index (BMI) [Ratio] 23.41 kg/m2 Sabrina Dee MD, MPH Work Phone: [facility] 06-16-2022 10:52-0400 Body weight 58.06 kg Sabrina Dee MD, MPH Work Phone: [facility] 06-16-2022 10:52-0400 Diastolic blood pressure 68 mm[Hg] Sabrina Dee MD, MPH Work Phone: [facility] 06-16-2022 10:52-0400 Heart rate 83 /min Sabrina Dee MD, MPH Work Phone: [facility] 06-16-2022 10:52-0400 SaO2% (BldA) [Mass fraction] 98 % Sabrina Dee MD, MPH Work Phone: [facility] 06-16-2022 10:52-0400 Systolic blood pressure 122 mm[Hg] Sabrina Dee MD, MPH Work Phone: [facility] 03-22-2022 16:51-0500 Diastolic blood pressure 61 mm[Hg] [facility] 03-22-2022 16:51-0500 Heart rate 98 /min [facility] 03-22-2022 16:51-0500 Respiratory rate 20 /min [facility] 03-22-2022 16:51-0500 SaO2% (BldA) [Mass fraction] 98 % [facility] 03-22-2022 16:51-0500 Systolic blood pressure 149 mm[Hg] [facility] 03-22-2022 14:59-0500 Body height 157.[address] [facility] 03-22-2022 14:59-0500 Body temperature 97.9 [degF] [facility] 03-22-2022 14:59-[address] [facility] 12-16-2021 11:53-0400 Body height 157.5 cm Sabrina Dee MD, MPH Work Phone: [facility] 12-16-2021 11:53-0400 Body mass index (BMI) [Ratio] 22.5 kg/m2 Sabrina Dee MD, MPH Work Phone: [facility] 12-16-2021 11:53-0400 Body weight 55.79 kg Sabrina Dee MD, MPH Work Phone: [facility] 12-16-2021 11:53-0400 Diastolic blood pressure 72 mm[Hg] Sabrina Dee MD, MPH Work Phone: [facility] 12-16-2021 11:53-0400 Heart rate 80 /min Sabrina Dee MD, MPH Work Phone: [facility] 12-16-2021 11:53-0400 SaO2% (BldA) [Mass fraction] 98 % Sabrina Dee MD, MPH Work Phone: [facility] 12-16-2021 11:53-0400 Systolic blood pressure 118 mm[Hg] Sabrina Dee MD, MPH Work Phone: [facility] 10-09-2021 20:00-0400 Body temperature 98.3 [degF] [facility] 10-09-2021 20:00-0400 Diastolic blood pressure 68 mm[Hg] [facility] 10-09-2021 20:00-0400 Heart rate 86 /min [facility] 10-09-2021 20:00-0400 Respiratory rate 20 /min [facility] 10-09-2021 20:00-0400 SaO2% (BldA) [Mass fraction] 100 % [facility] 10-09-2021 20:00-0400 Systolic blood pressure 110 mm[Hg] [facility] 10-09-2021 14:19-0400 Body height 157.[address] [facility] 10-09-2021 14:19-0400 Body weight 56.[address] [facility] 10-04-2021 19:00-0400 Diastolic blood pressure 66 mm[Hg] [facility] 10-04-2021 19:00-0400 Heart rate 72 /min [facility] 10-04-2021 19:00-0400 Respiratory rate 16 /min [facility] 10-04-2021 19:00-0400 SaO2% (BldA) [Mass fraction] 96 % [facility] 10-04-2021 19:00-0400 Systolic blood pressure 110 mm[Hg] [facility] 10-04-2021 15:16-0400 Body temperature 97.9 [degF] [facility] 10-04-2021 15:15-0400 Body height 157.[address] [facility] 10-04-2021 15:15-0400 Body weight 54.[address] [facility] 09-25-2021 19:58-0400 Heart rate 82 /min [facility] 09-25-2021 18:04-0400 Body temperature 98.1 [degF] [facility] 09-25-2021 18:00-0400 Body height 157.[address] [facility] 09-25-2021 18:00-0400 Body weight 55.[address] [facility] 09-25-2021 18:00-0400 Diastolic blood pressure 107 mm[Hg] [facility] 09-25-2021 18:00-0400 Respiratory rate 18 /min [facility] 09-25-2021 18:00-0400 SaO2% (BldA) [Mass fraction] 98 % [facility] 09-25-2021 18:00-0400 Systolic blood pressure 141 mm[Hg] [facility] 08-11-2021 18:12-0400 Heart rate 86 /min [facility] 08-11-2021 18:00-0400 Diastolic blood pressure 69 mm[Hg] [facility] 08-11-2021 18:00-0400 Respiratory rate 20 /min [facility] 08-11-2021 18:00-0400 SaO2% (BldA) [Mass fraction] 98 % [facility] 08-11-2021 18:00-0400 Systolic blood pressure 114 mm[Hg] [facility] 08-11-2021 16:06-0400 Body height 170.[address] [facility] 08-11-2021 16:06-0400 Body mass index (BMI) [Ratio] 19.6 kg/m2 [facility] 08-11-2021 16:06-0400 Body temperature 97.9 [degF] [facility] 08-11-2021 16:06-[address] [facility] 03-19-2021 14:30-0500 Body height 157.48 cm Marya Jevony Other [employer] Other 03-19-2021 14:30-0500 Body mass index (BMI) [Ratio] 24.69 kg/m2 Marya Ginty Other [employer] Other 03-19-2021 14:30-0500 Body temperature 96 [degF] Marya Ginty Other [employer] Other 03-19-2021 14:30-0500 Body weight 61.24 kg Marya Ginty Other [employer] Other 03-19-2021 14:30-0500 Respiratory rate 63 /min Marya Ginty Other [employer] Other 03-19-2021 14:30-0500 SaO2% (BldA) [Mass fraction] 97 % Marya Ginty Other [employer] Other 03-26-2020 21:05-0500 Pulse Oximetry 100 % [facility] [place] 03-26-2020 21:01-0500 BP Diastolic 68 mm[Hg] [facility] , [place] 03-26-2020 21:01-0500 BP Systolic 152 mm[Hg] [facility] , [place] 03-26-2020 17:32-0500 BMI (Body Mass Index) 22.86 kg/m2 [facility], [place] 03-26-2020 17:32-0500 Body weight 56.7 kg [place], [place] 03-26-2020 17:32-0500 Height 157.5 cm [place], [place] 03-26-2020 17:32-0500 Pulse (Heart Rate) 90 /min [place], [place] 03-26-2020 17:32-0500 Respiratory Rate 18 /min [facility] [place] 03-26-2020 12:39-0500 Body Temperature 98.71 [degF] [facility], [place] 08-25-2019 08:30-0400 Body Temperature 98.01 [degF] Rajeev Sakshi [facility] , [place] 08-25-2019 08:30-0400 BP Diastolic 75 mm[Hg] Rajeev Cantor [facility] , [place] 08-25-2019 08:30-0400 BP Systolic 117 mm[Hg] Rajeev [facility] , [place] 08-25-2019 08:30-0400 Pulse (Heart Rate) 84 /min Rajeev [facility], [place] 08-25-2019 08:30-0400 Pulse Oximetry 97 % Rajeev [facility] , [place] 08-25-2019 08:30-0400 Respiratory Rate 16 /min Rajeev [facility], [place] 08-25-2019 05:30-0400 BMI (Body Mass Index) 25.88 kg/m2 Rajeev [facility], [place] 08-25-2019 05:30-0400 Body weight 64.18 kg Rajeev [facility] , [place] 08-22-2019 16:00-0400 Height 157.5 cm Rajeev [place] 03-04-2018 13:09-0500 BP Diastolic 69 mm[Hg] [facility] 03-04-2018 13:09-0500 BP Systolic 108 mm[Hg] [facility] 03-04-2018 13:09-0500 Pulse (Heart Rate) 79 /min [facility] 03-04-2018 13:09-0500 Pulse Oximetry 99 % [facility] 03-04-2018 13:09-0500 Respiratory Rate 16 /min [facility] 03-04-2018 11:01-0500 BMI (Body Mass Index) 22.86 kg/m2 [facility] 03-04-2018 11:01-0500 Body Temperature 98.6 [degF] [facility] 03-04-2018 11:01-[address] [facility] 03-04-2018 11:01-[address] [facility] 08-24-2017 20:58-0400 BP Diastolic 64 mm[Hg] Errol Walton [facility] 08-24-2017 20:58-0400 BP Systolic 126 mm[Hg] [facility] 08-24-2017 20:58-0400 Pulse (Heart Rate) 67 /min Errol Walton [facility] 08-24-2017 20:58-0400 Pulse Oximetry 98 % [facility] 08-24-2017 20:58-0400 Respiratory Rate 18 /min Errol Walton [facility] 08-24-2017 13:41-0400 BMI (Body Mass Index) 21.58 kg/m2 Errol Walton [facility] 08-24-2017 13:41-0400 Body Temperature 98.29 [degF] Errol Walton [facility] 08-24-2017 13:41-0400 Height 157.5 cm Errol Walton [facility] 08-24-2017 13:41-0400 Weight 53.52 kg Errol Walton [facility] 06-09-2017 09:32-0400 BP Diastolic 73 mm[Hg] [facility] 06-09-2017 09:32-0400 BP Systolic 106 mm[Hg] [facility] 06-09-2017 09:32-0400 Pulse (Heart Rate) 86 /min [facility] 06-09-2017 09:32-0400 Pulse Oximetry 99 % [facility] 06-09-2017 09:32-0400 Respiratory Rate 16 /min [facility] 06-09-2017 07:20-0400 BMI (Body Mass Index) 21.87 kg/m2 [facility] 06-09-2017 07:20-0400 Body Temperature 98.4 [degF] [facility] 06-09-2017 07:20-0400 Height 157.5 cm [facility] 06-09-2017 07:20-0400 Weight 54.23 kg [facility] 05-15-2017 08:11-0500 Body Temperature 98.01 [degF] [facility] 05-15-2017 08:11-0500 BP Diastolic 69 mm[Hg] [facility] 05-15-2017 08:11-0500 BP Systolic 116 mm[Hg] [facility] 05-15-2017 08:11-0500 Pulse (Heart Rate) 76 /min [facility] 05-15-2017 08:11-0500 Pulse Oximetry 95 % [facility] 05-15-2017 08:11-0500 Respiratory Rate 15 /min [facility] 05-14-2017 12:58-0500 BMI (Body Mass Index) 21.95 kg/m2 [facility] 05-14-2017 12:58-0500 Height 157.5 cm [facility] 05-14-2017 [id number]:580500 Weight 54.43 kg David Gibson [facility] Encounters Encounter Date Encounter Type Care Provider Facility Start: 04-07-2024 End: 04-07-2024 Emergency department patient visit Peter Baca MD Work Phone: [facility] Comment on above: Acute pancreatitis w ithout infection or necrosis, unspecified pancreatitis type (Primary Dx); Acute recurrent pancreatitis Start: 03-18-2024 End: 03-18-2024 Emergency department patient visit [facility] Start: 01-19-2024 ambulatory SABRINA DEE [facility] Start: 01-19-2024 End: 01-19-2024 Subsequent hospital visit by physician Sabrina Dee MD, MPH Work Phone: [facility] Start: 01-14-2024 End: 01-14-2024 Emergency department patient visit [facility] Start: 01-07-2024 End: 01-07-2024 Emergency department patient visit [facility] Comment on above: Acute on chronic see creatitis (HCC) (Primary Dx); Abdominal pain, epigastric Start: 12-29-2023 End: 12-29-2023 Emergency department patient visit [facility] Start: 09-29-2023 End: 09-29-2023 Emergency department patient visit [facility] Comment on above: Hypokalemia (Primary Dx); Acute recurrent pancreatitis Start: 09-08-2023 End: 09-08-2023 Subsequent hospital visit by physician Sabrina Dee MD, MPH Work Phone: [facility] Start: 09-08-2023 ambulatory SABRINA Ferreira cili:[facility] Start: 05-22-2023 Telephone encounter 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); Encounter for screening for malignant neoplasm of colon; Other osteoporosis without current pathological fracture; Epigastric pain; Smoking; Gastroesophageal reflux disease without esophagitis Start: 05-11-2023 ambulatory SABRINA DEE Fa cility:[facility] Start: 04-18-2023 End: 04-18-2023 Emergency department patient visit [facility] Work Phone: Start: 04-16-2023 Telephone encounter Monalisa [facility] Start: 04-11-2023 End: 04-12-2023 Emergency department patient visit [facility] Work Phone: Start: 04-11-2023 End: 04-12-2023 Emergency department patient visit TABITHA NEWELL [facility] Start: 04-11-2023 End: 04-11-2023 Emergency department patient visit [facility] Start: 04-11-2023 End: 04-12-2023 Emergency department patient visit TABITHA NEWELL [facility] Start: 04-02-2023 End: 04-02-2023 Emergency department patient visit [facility] Work Phone: Start: 03-27-2023 End: 03-28-2023 [facility] Start: 03-26-2023 End: 03-27-2023 Emergency department patient visit [facility] Start: 11-09-2022 End: 11-09-2022 Emergency department patient visit [facility] Work Phone: Start: 08-12-2022 End: 08-12-2022 Subsequent hospital visit by physician Sabrina Dee MD, MPH Work Phone: [facility] Start: 06-16-2022 End: 06-16-2022 Office outpatient visit 40 minutes Sabrina Dee MD, MPH Work Phone: [facility] [place] Comment on above: Osteoporosis without current pathological fracture, unspecified osteoporosis type (Primary Dx); Alcohol-induced chronic pancreatitis Start: 06-13-2022 End: 06-13-2022 ambulatory ARIC ARCINIEGA . Facility:[facility] Start: 03-29-2022 End: 03-29-2022 ambulatory ELENITA RIA . Facility:[facility] Start: 03-22-2022 End: 03-22-2022 Emergency department patient visit [facility] Work Phone: Start: 03-19-2022 End: 03-19-2022 ambulatory MONIK IGGY . Facility:[facility] Start: 01-28-2022 End: 01-28-2022 Subsequent hospital visit by physician Sabrina Dee MD, MPH Work Phone: [facility] Start: 01-27-2022 End: 01-27-2022 Subsequent hospital visit by physician Sabrina Dee MD, MPH Work Phone: [facility] [place] Comment on above: Arrived Start: 01-15-2022 End: 01-15-[address] HELLEN KITCHEN . Facility:[facility] Start: 12-16-2021 End: 12-16-2021 Office outpatient visit 25 minutes Sabrina Dee MD, MPH Work Phone: [facility] [place] Comment on above: Recurrent acute panc reatitis (Primary Dx); History of smoking 25-50 pack years; Alcohol-induced chronic pancreatitis; Epigastric pain; Encounter for screening colonoscopy Start: 12-13-2021 End: 12-14-2021 ambulatory NICK COY Facility:[facility] Start: 12-05-2021 End: 12-05-[address] RAJEEV KELLOGG Facility:[facility] Start: 10-11-2021 End: 10-12-[address] RAJEEV KELLOGG Facility:[facility] Start: 10-04-2021 End: 10-04-2021 Emergency department patient visit [facility] Start: 09-30-2021 End: 09-30-2021 ambulatory NAT MAXWELL . Facility:[facility] Start: 09-25-2021 End: 09-25-2021 Emergency department patient visit [facility] Start: 09-17-2021 End: 09-17-[address] RAJEEV KELLOGG Facility:[facility] Start: 08-26-2021 End: 08-26-2021 ambulatory NICK COY Facility:[facility] Start: 08-22-2021 End: 08-22-[address] TRI HANSON Facility:[facility] Start: 08-13-2021 End: 08-13-2021 ambulatory AGUSTIN MADRIGAL Facility:[facility] Start: 08-11-2021 End: 08-11-2021 Emergency department patient visit [facility] Start: 07-31-2021 End: 07-31-2021 ambulatory YANNI FRASER Facility:[facility] Start: 07-19-2021 End: 07-19-2021 ambulatory LYNNE PERDOMO Facility:[facility] Start: 03-19-2021 End: 03-19-2021 ambulatory Marya Almonte Other [employer] Other Start: 03-19-2021 Office outpatient visit 15 minutes Marya Almonte [facility] Start: 05-22-2020 End: 05-22-2020 Orders Only Izabela Grant Work Phone: [facility] Start: 03-26-2020 End: 03-26-2020 Emergency department patient visit [facility] Comment on above: Acute biliary pancre atitis, unspecified complication status (Primary Dx) Start: 08-22-2019 End: 08-25-2019 Evaluation and management of inpatient Rajeev Grant Sakshi [facility] Phone[facility] Comment on above: Acute pancreatitis, unspecified complication status, unspecified pancreatitis type (Primary Dx); Pain of upper abdomen Start: 03-08-2018 End: 03-09-2018 Evaluation and management of inpatient [place] Start: 03-04-2018 End: 03-04-2018 Patient encounter procedure [place] Start: 03-04-2018 End: 03-04-2018 Emergency department patient visit Keerthi Nguyen Work Phone: [facility] Emergency Department Comment on above: Acute on chronic see creatitis (HCC) (Primary Dx) Start: 08-24-2017 End: 08-24-2017 Emergency department patient visit [place] Start: 08-24-2017 End: 08-24-2017 Emergency department patient visit Errol Walton Work Phone: [phone] [place] [address] Emergency Department Start: 06-09-2017 End: 06-09-2017 Emergency department patient visit [place] Start: 06-09-2017 End: 06-09-2017 Emergency department patient visit Joana Mendes Work Phone: [phone] [place] [address] Emergency Department Start: 05-14-2017 End: 05-15-2017 Patient encounter procedure [place] Start: 05-14-2017 End: 05-15-2017 Emergency department patient visit David Alberto Gibson Work Phone: [facility] Medical Observation Procedures Date Procedure Procedure Detail Performing Clinician Start: 04-07-2024 Urnls dip stick/tabl et rgnt auto w/o microscopy Peter Baca MD Work Phone: Start: 04-07-2024 End: 04-07-2024 Basic metabolic panel calcium total Peter Baca MD Work Phone: Start: 04-07-2024 Hepatic function panel Peter Baca MD Work Phone: Start: 04-07-2024 Ct abdomen & pelvis w/contrast material Peter aBca MD Work Phone: Start: 01-19-2024 UPPER EUS Sabrina Dee MD, MPH Work Phone: Start: 01-07-2024 Urnls dip stick/tabl et reagent auto microscopy Saida Augustine MD Work Phone: Start: 01-07-2024 Comprehensive metabo lic panel Saida Augustine MD Work Phone: Start: 01-07-2024 Ecg routine ecg w/le ast 12 lds w/i&r Saida Augustine MD Work Phone: Start: 09-29-2023 Urinalysis microscop ic only Kerrie Kincaid PA-C Work Phone: Start: 09-29-2023 Urnls dip stick/tabl et rgnt auto w/o microscopy Kerrie Kincaid PA-C Work Phone: Start: 09-29-2023 Comprehensive metabo lic panel Kerrie Kincaid PA-C Work Phone: Start: 09-08-2023 UPPER EUS Sabrina [...] Phone: Start: 08-25-2019 Assay of lipase Rajeev Deepa Cantor Work Phone: Start: 08-25-2019 Blood count [...] Phone: Start: 08-22-2019 Assay of lipase Rajeev Deepa Cantor Work Phone: Start: 08-22-2019 Blood count [...] Start: 03-04-2018 End: 03-04-2018 RUFF TOP Heather Linsey Work Phone: Start: 03-04-2018 End: 03-04-2018 Hepatic function 2000 panel - Serum or Plasma Konstantin Connolly Work Phone: Start: 03-04-2018 End: 03-04-2018 LIGHT BLUE TOP Heather Nguyen Work Phone: Start: 03-04-2018 End: 03-04-2018 LIGHT GREEN TOP Heather Nguyen Work Phone: Start: 03-04-2018 End: 03-04-2018 Lipase [Enzymatic activity/volume] in Serum or Plasma Konstantin Connolly Work Phone: Start: 03-04-2018 End: 03-04-2018 PINK TOP Heather Nguyen Work Phone: Start: 03-04-2018 End: 03-04-2018 RAINBOW DRAW Heather Nguyen Work Phone: Start: 09-25-2017 Lipid 1996 panel - S erika or Plasma Sabrina Dee MD, MPH Work Phone: Start: 01-02-2012 Mammography Izabela skinner Start: 12-11-2011 Microscopic observat ion [Identifier] in Cervix by Cyto stain Keerthi Nguyen Plan of Treatment Date Care Activity Detail Author Start: 04-11-2024 Adult [facility] Start: 04-11-2024 Tobacco Screening Tobacco Screening [facility] Start: 02-22-2024 End: 02-22-2024 Patient encounter procedure 02/22/2024 9:30 AM EST Office Visit [facility] [place] [id number] [facility] [address] [place] [address] Sabrina Dee MD, MPH [address] [place] [id number] [facility] [place] Start: 11-08-2023 COVID-19 Vaccine ( season) COVID-19 Vaccine ( season) [facility] Start: 11-08-2023 COVID-19 Vaccine ( season) COVID-19 Vaccine ( season) [facility] Start: 11-08-2023 COVID-19 VACCINE ( season) COVID-19 VACCINE ( season) [facility] Start: 11-08-2023 Influenza vaccination INFLUENZA VACCINE (#1) [facility] Start: 10-08-2023 Influenza vaccination Flu vaccine (#1) [facility] Start: 05-25-2023 End: 05-25-2023 Patient encounter procedure 05/25/2023 1:00 PM EDT Office Visit [facility] [address] [facility] [address] [place] [address] Orlando Al MD [address] [place] [address] [facility] Start: 05-19-2023 End: 05-10-2024 UPPER EUS UPPER EUS GI/Bronch Routine Alcohol-induced chronic pancreatitis Expected: 05/19/2023, Expires: 05/10/2024 [facility] Comment on above: Expected: 05/19/2023, Expires: Start: 05-11-2023 End: 05-10-2024 VITAMIN D (25-HYDROXY,TOTAL) VITAMIN D (25-HYDROXY,TOTAL) Lab Routine Other osteoporosis without current pathological fracture Expected: 05/11/2023, Expires: 05/10/2024 [facility] Comment on above: Expected: 05/11/2023, Expires: 5 Start: 04-11-2023 Computed tomography of abdomen and pelvis with contrast CT abdomen pelvis w con [facility] Start: 04-11-2023 CT Abdomen and Pelvis W contrast IV [facility] Start: 03-16-2023 End: 03-16-2023 Patient encounter procedure 03/16/2023 Office Visit Gastroenterology Sabrina Dee MD, MPH [address] [place] [address] [facility] [place] Start: 11-07-2022 COVID-19 VACCINE ( season) COVID-19 VACCINE () [facility] Start: 11-07-2022 Influenza vaccination [facility] Start: 09-25-2022 Lipid panel LIPID SCREENING [facility] Start: 07-29-2022 End: 06-17-2023 UPPER EUS UPPER EUS GI/Bronch Routine Alcohol-induced chronic pancreatitis Expected: 07/29/2022, Expires: 06/17/2023 [facility] Comment on above: Expected: 07/29/2022, Expires: 4 Start: 07-28-2022 End: 01-28-2023 Screening colonoscopy SCREENING COLONOSCOPY GI/Bronch Routine Encounter for screening colonoscopy Expected: 07/28/2022, Expires: 01/28/2023 [facility] Comment on above: Expected: 07/28/2022, Expires: 3 Start: 07-28-2022 End: 07-28-2022 Patient encounter procedure 07/28/2022 Appointment Endoscopy Julia Tyler MD [address] [address] [facility] Start: 06-16-2022 End: 12-16-2022 Screening colonoscopy SCREENING COLONOSCOPY GI/Bronch Routine Encounter for screening colonoscopy Expected: 06/16/2022, Expires: 12/16/2022 [facility] Comment on above: Expected: 06/16/2022, Expires: 3 Start: 06-16-2022 End: 06-16-2022 Patient encounter procedure 06/16/2022 Office Visit Gastroenterology Sabrina Dee MD, MPH [address] [place] [address] [facility] [place] Start: 03-22-2022 Bacteria identified in Urine by Culture [facility] Start: 01-28-2022 End: 01-28-2022 Patient encounter procedure 01/28/2022 Appointment Endoscopy Sabrina Dee MD, MPH [address] [place] [address] [facility] Start: 01-28-2022 Subsequent hospital visit by physician 01/28/2022 Hospital Encounter Endoscopy Sabrina Dee MD, MPH [address] [place] [address] Arrived [facility] Comment on above: Arrived Start: 01-14-2022 End: 12-16-2022 UPPER EUS UPPER EUS GI/Bronch Routine Recurrent acute pancreatitis Expected: 01/14/2022, Expires: 12/16/2022 [facility] Comment on above: Expected: 01/14/2022, Expires: 3 Start: 12-16-2021 End: 12-16-2022 Bone density scan BONE DENSITY AXIAL (HIP, PELVIS, SPINE) Imaging Routine Recurrent acute pancreatitis History of smoking 25-50 pack years Expected: 12/16/2021, Expires: 12/16/2022 [facility] Comment on above: Expected: 12/16/2021, Expires: 3 Start: 11-07-2021 Influenza vaccination INFLUENZA VACCINE (#1) [facility] Start: 10-09-2021 CT of abdomen and pelvis without contrast CT abdomen pelvis wo [facility] Start: 10-09-2021 End: 10-09-2021 Emergency department patient visit Departed Emergency [facility] Start: 11-13-2020 COVID-19 VACCINE (3 - Booster for Pfizer series) COVID-19 VACCINE (3 - Booster for Pfizer series) [facility] Start: 11-08-2019 Influenza vaccination [place], [place] Start: 11-08-2019 Influenza vaccination given Sequential Influenza Vaccine (#1) [facility] Start: 06-21-2019 Administration of herpes zoster vaccine Zoster Vaccines (1 of 2) [facility] Start: 06-21-2019 Administration of varicella zoster vaccine Zoster (Shingles) Vaccine (1 of 2) [facility] Sunglass [facility] Start: 06-21-2019 Screening for malignant neoplasm of breast Breast cancer screen [place], [place] Start: 06-21-2019 Screening for malignant neoplasm of colon [place] Start: 06-21-2019 Screening for malignant neoplasm of lung LUNG CANCER SCREENING [facility] Start: 06-21-2019 Shingles Vaccine (1 of 2) Shingles Vaccine (1 of 2) [facility] Start: 06-21-2019 Zoster vaccine hzv live for subcutaneous use ZOSTER (SHINGLES) VACCINE (1 of 2) [facility] Start: 11-07-2017 [facility] Start: 11-07-2016 Influenza vaccination SEQUENTIAL INFLUENZA VACCINE (#1) [facility] Start: 12-10-2014 Screening for malignant neoplasm of cervix PAP SMEAR [facility] Start: 2014 Screening for malignant neoplasm of colon [facility] Start: 01-01-2014 Screening for malignant neoplasm of breast Breast cancer screen [facility] [employer] Start: 01-01-2013 Screening for malignant neoplasm of breast MAMMOGRAM SCREENING DISCUSSION [facility] Start: 01-01-2013 Screening mammography Mammogram [facility] Start: 2009 Lipid panel [facility] Start: 1990 Screening for malignant neoplasm of cervix [facility] Start: 1988 DTaP,Tdap and Td Vaccines (1 - Tdap) DTaP,Tdap and Td Vaccines (1 - Tdap) [facility] Start: 1988 DTaP/Tdap/Td vaccine (1 - Tdap) DTaP/Tdap/Td vaccine (1 - Tdap) [facility] Start: 1988 Hepatitis B vaccination HEP B VACCINE (1 of 3 - 19+ 3-dose series) [facility] Start: 1988 Hepatitis B vaccine (1 of 3 - 19+ 3-dose series) Hepatitis B vaccine (1 of 3 - 19+ 3-dose series) [facility] Start: 1988 Third diphtheria, tetanus and acellular pertussis (DTaP) vaccination TDAP (ADULT) [facility] Start: 06-21-1987 Hepatitis C antibody, confirmatory test Hepatitis C Screening [facility] Start: 06-21-1987 Hepatitis C screening Hepatitis C screen [facility] Start: 06-21-1987 Tetanus vaccination TETANUS [facility] Start: 1985 COVID-19 Vaccine (1 of 2) COVID-19 Vaccine (1 of 2) [facility] Start: 1984 HIV screening [facility] Start: 1981 Depression Screen Depression Screen [facility] Start: 1981 Depression Screening Depression Screening [facility] Start: 06-21-1975 Pneumococcal 0-64 years Vaccine (1 of 1 - PPSV23) Pneumococcal 0-64 years Vaccine (1 of 1 - PPSV23) [place] Start: 06-21-1975 Pneumococcal 0-64 years Vaccine (1 of 2 - PCV) Pneumococcal 0-64 years Vaccine (1 of 2 - PCV) [facility] Start: 06-21-1975 PNEUMOCOCCAL VACCINE SERIES (1 - PCV) PNEUMOCOCCAL VACCINE SERIES (1 - PCV) [facility] Start: 06-21-1975 PNEUMOCOCCAL VACCINE SERIES (1 of 2 - PCV) PNEUMOCOCCAL VACCINE SERIES (1 of 2 - PCV) [facility] Start: 1972 History and physical examination, annual for health maintenance Wellness Visit [facility] Start: 1969 COVID-19 Vaccine (#1) COVID-19 Vaccine (#1) [facility] Start: 1969 Hepatitis B vaccination HEP B VACCINE (1 of 3 - 3-dose series) [facility] Start: 1969 Hepatitis B vaccine (1 of 3 - 3-dose series) Hepatitis B vaccine (1 of 3 - 3-dose series) [facility] Start: 1969 Hepatitis C screening [facility] Start: 1969 Tetanus vaccination [facility] Start: 1969 Tobacco Counseling Tobacco Counseling [employer] CBC auto differential CBC auto d ifferential Lab Routine Daily until discontinued starting 08/23/2019, 3 completed [employer] [facility] Comment on above: Daily until discontinued starting 2019, [address] ABDOMEN PELVIS W IV CONTRAST Additional Contrast? None CT ABDOMEN PELVIS W IV CONTRAST Additional Contrast? None Imaging STAT 03/26/2020 3:01 PM EST [employer] [facility] EKG 12 Lead EKG 12 Lead ECG Routine 01/07/2024 2:42 PM EDT [facility] Work Phone: IgG Subclasses IgG Subclasses A dd-On 05/14/2017 2:06 PM [facility] Initiate Oxygen Therapy Protocol Initiate Oxygen Therapy Protocol Respiratory Care Routine Daily until discontinued starting 08/22/2019 [employer] TN[facility] Comment on above: Daily until discontinued starting 2019 Lipase Lipase Lab Routi ne Daily until discontinued starting 08/23/2019, 3 completed [employer] TN[facility]AMES Comment on above: Daily until discontinued starting 2019, 3 completed Patient Education [facility] Work Phone: Patient referral [facility] Work Phone: End: 08-22-2019 Pulse Oximetry Spot Check Pulse Oximetry Spot Check Respiratory Care Routine One Time for 1 Occurrences starting 08/22/2019 until 08/22/2019 [facility] [employer] TNJAMES Comment on above: One Time for 1 Occurrences starting 08/07 until 08/22/2019 Screening colonoscopy SCREENING COLONOSCOPY GI/Bronch Routine Encounter for screening colonoscopy 01/28/2022 9:43 AM EST [facility] Screening colonoscopy SCREENING COLONOSCOPY GI/Bronch Routine Encounter for screening for malignant neoplasm of colon Ordered: 05/11/2023 [facility] Comment on above: Ordered: 05/11/2023 End: 04-07-2024 SPECIMEN REJECTION Efra lew Comment on above: Once for 1 Occurrences starting 04/07/19 until 04/07/2024 Immunizations Immunization Date Immunization Notes Care Provider Fa cility 12-23-2015 influenza, injectabl e, quadrivalent, contains preservative Sabrina eDe MD, MPH Work Phone: [facility] 12-23-2015 influenza virus vaccine, unspecified formulation Sabrina Dee MD, MPH Work Phone: [facility] 12-15-2014 influenza virus vaccine, unspecified formulation Sabrina Dee MD, MPH Work Phone: [facility] Payers Date Payer Category Payer Unknown [id number] 2022 Self-pay [id number] 2022 Medicaid [employer] O [id number] 2022-Present [phone] [address] [place] [address] [id number] 2019 Unknown [employer] [facility] MEDICAID xxxxxxxxxxx 2019-Present [phone] CLAIMS DEPARTMENT [address] [place] [address] xxxxxxxxxxx [id number]. [id number] 2017 Unknown [id number] 2017 Unknown 1969 Unknown [id number] 2.16.840.1.803755.3.579.2.900 1969 Unknown [id number] 2.16.840.1.343753.3.579.2.900 1969 Unknown [id number] 2.16.840.1.629990.3.579.2.900 1969 Unknown [id number] 2.16.840.1.377598.3.579.2.900 1969 Unknown [id number] 2.16.840.1.549262.3.579.2.900 1969 Unknown [id number] 2.16.840.1.404305.3.579.2.593 1969 Unknown [id number] 2.16.840.1.026652.3.579.2.593 1969 Unknown [id number] 2.16.840.1.562534.3.579.2.593 1969 Unknown [id number] 2.16.840.1.700098.3.579.2.593 1969 Unknown [id number] 2.16.840.1.047459.3.579.2.593 1969 Unknown [id number] 2.16.840.1.882270.3.579.2.593 1969 Unknown [id number] 2.16.840.1.385087.3.579.2.593 1969 Unknown [id number] 2.16.840.1.186870.3.579.2.593 1969 Unknown [id number] 2.16.840.1.214312.3.579.2.593 1969 Unknown [id number] 2.16.840.1.107932.3.579.2.593 1969 Unknown [id number] 2.16.840.1.121247.3.579.2.593 1969 Unknown [id number] 2.16.840.1.672784.3.579.2.593 1969 Unknown [id number] 2.16.840.1.349030.3.579.2.593 1969 Unknown [id number] 2.16.840.1.596234.3.579.2.593 1969 Unknown [id number] 2.16.840.1.465170.3.579.2.594 1969 Unknown [id number] 2.16.840.1.264142.3.579.2.594 1969 Unknown [id number] 2.16.840.1.596665.3.579.2.594 1969 Unknown [id number] 2.16.840.1.209533.3.579.2.128 1969 Unknown [id number] 2.16.840.1.801728.3.579.2.1285 1969 Unknown [id number] 2.16.840.1.360026.3.579.2.1285 1969 Unknown [id number] 2.16.840.1.295848.3.579.2.1285 1969 Unknown [id number] 2.16.840.1.921627.3.579.2.1286 1969 Unknown [id number] 2.16.840.1.091403.3.579.2.1285 1969 Unknown [id number] 2.16.840.1.246545.3.579.2.1286 1969 Unknown [id number] 2.16.840.1.356048.3.579.2.1285 1969 Unknown [id number] 2.16.840.1.178787.3.579.2.1286 1969 Unknown [id number] 2.16.840.1.247519.3.579.2.173 1969 Unknown [id number] 2.16.840.1.660480.3.579.2.173 1969 Unknown [id number] 2.16.840.1.762848.3.579.2.173 1959 Medicaid [id number] 1959 Unknown [id number] 1.2.840.259675.1.13.239.2.7.3. 515395.315 Unknown [id number] 2.16.840.1.660393.3.579.2.531 Unknown [id number] 2.16.840.1.776880.3.579.2.531 Unknown [id number] 2.16.840.1.191756.3.579.2.531 Unknown [id number] 2.16.840.1.617833.3.579.2.531 Social History Date Type Detail Facility Start: 06-09-2017 End: 05-11-2023 Tobacco smoking status WYIS Current every day smoker [facility] End: 10-30-2020 History of tobacco use Cigarette Smoker [facility] Start: 06-09-2017 End: 04-19-2020 Cigarettes smoked current (pack per day) - Reported [facility] Start: 1970 Sex Assigned At Not on file [facility] Start: 08-22-2019 End: 04-07-2024 Alcohol intake Current non-drinker of alcohol (finding) [employer] [place] Exposure to SARS-CoV -2 (event) Unable to assess [employer] [facility] Start: 03-08-2018 End: 05-11-2023 Tobacco use and exposure Never used [employer] Start: 07-24-2014 Tobacco Comment Smokes < 1/2 p pd, smoker for 30+ years [facility] Start: 07-24-2014 Alcohol Comment Prior heavy dr carrillo, quit 8 years ago [facility] Start: 04-19-2020 End: 08-12-2022 Sex Assigned At [employer] Other Start: 09-25-2021 End: 04-18-2023 Tobacco smoking status NHIS Smoker (finding) [facility] Start: 1970 Sex Assigned At Female F [facility] Start: 05-09-2016 Alcohol Comment been sober for 9 yea rs [facility] Start: 04-02-2023 Tobacco smoking stat us WYIS Current some day smoker [facility] Gender identity Identifies as fe male gender (finding) [facility] How often to you hav e a drink containing alcohol? Never [facility] How many standard drinks containing alcohol do you have on a typical day? Patient does not drink [facility] Start: 06-25-2022 Tobacco smoking stat us WYIS Ex-smoker [facility] Start: 04-11-2023 End: 05-11-2023 Alcohol intake [facility] Start: 06-25-2022 Alcohol Comment Has not consum ed alcohol in 12 years [facility] Clinical Notes 10-08-2019 to 04-07-2024 Discharge InstructionsAttachJerzy Alvarado RN - 01/19/2024 11:44 AM Brennan Alvraado RN - 01/19/2024 11:44 AM To Christiansen MD - 01/19/2024 8:30 AM To Christiansen MD - 01/19/2024 8:30 AM EST Note Date & Type Note Facility 04-07-2024 Hospital Discharg e instructions Peter Baca MD - 04/07/2024 6:10 PM EST Please start a clear liquid diet today and tomorrow, advance as tolerated, avoid alcohol. Follow-up with your GI doctor tomorrow for further recommendations. The following attachments cannot be sent through Care Everywhere.Pancreatitis (Portuguese)Clear Liquid Diet: General Info (Portuguese)documented in this encounter [facility] 01-19-2024 Nurse Surgical operation note Patient mets [...] off unit via wheelchair w/ family assistance. [facility] 01-19-2024 Nurse Note Patient mets discharge criteria, [...] w/ family assistance. documented in this encounter [facility] 01-19-2024 History and physical note ENDOSCOPIC PREPROCEDURE HISTORY AND PHYSICAL HISTORY OF PRESENT ILLNESS: Chioma Rainey is a 53 y.o. female seen in the pre-procedure area at [facility]. The indication for endoscopic evaluation includes: Alcohol-induced chronic pancreatitis PAST MEDICAL HISTORY: Past Medical History: Diagnosis Date Anemia Depression H. pylori infection Neutrophilic leukocytosis Pancreatitis SURGICAL HISTORY: Past Surgical History: Procedure Laterality Date EGD W/ ULTRASOUND 09/08/2023 for nerve block EGD W/ ULTRASOUND N/A 12/01/2019 Laterality: N/A; Surgeon: Sabrina Dee MD, MPH; Location: [facility] EGD W/ ULTRASOUND N/A 04/23/2016 Laterality: N/A; Surgeon: Pineda Troy MD; Location: [facility] EGD W/ ULTRASOUND N/A 01/23/2016 Laterality: N/A; Surgeon: Pineda Troy MD; Location: [facility] CHANGE TUBE GASTROSTOMY N/A 08/20/2015 Laterality: N/A; Surgeon: Yanni Alonzo MD; Location: [facility] EGD DIAGNOSTIC N/A 06/25/2015 Laterality: N/A; Surgeon: Pineda Troy MD; Location: [facility] EGD W/ PLACEMENT OR REPLACEMENT PEG N/A 06/15/2015 Laterality: N/A; Surgeon: Curry Newell MD; Location: [facility] EGD W/ INSERTION TUBE OR CATHETER N/A 06/13/2015 Laterality: N/A; Surgeon: Jose Ty MD; Location: [facility] EGD W/ ULTRASOUND N/A 02/14/2015 Laterality: N/A; Surgeon: Pineda Troy MD; Location: [facility] CHOLECYSTECTOMY CHOLECYSTECTOMY, LAPAROSCOPIC HYSTERECTOMY MEDICATIONS: Current Outpatient Medications Medication Instructions Ergocalciferol (VITAMIN D2) 50,000 Units, Oral, WEEKLY Pancreatic enzymes (Creon) [id number] units Cap DR Particles capsule 72,000 Units, Oral, 2 TIMES DAILY WITH MEALS Current Outpatient Medications: Ergocalciferol 1.25 MG (46076 UT) capsule, Take 1 capsule by mouth once a week., Disp: 8 capsule, Rfl: 0 Pancreatic enzymes (Creon) [id number] units Cap DR Particles capsule, Take 3 [...] using Monitored Anesthesia Care. Daniel Christiansen MD [facility] Work Phone: 01-19-2024 History and physical note ENDOSCOPIC PREPROCEDURE HISTORY AND PHYSICAL HISTORY OF PRESENT ILLNESS: Chioma Rainey is a 53 y.o. female seen in the pre-procedure area at [facility]. The indication for endoscopic evaluation includes: Alcohol-induced chronic pancreatitis PAST MEDICAL HISTORY: Past Medical History: Diagnosis Date Anemia Depression H. pylori infection Neutrophilic leukocytosis Pancreatitis SURGICAL HISTORY: Past Surgical History: Procedure Laterality Date EGD W/ ULTRASOUND 09/08/2023 for nerve block EGD W/ ULTRASOUND N/A 12/01/2019 Laterality: N/A; Surgeon: Sabrina Dee MD, MPH; Location: [facility] EGD W/ ULTRASOUND N/A 04/23/2016 Laterality: N/A; Surgeon: Pineda Troy MD; Location: [facility] EGD W/ ULTRASOUND N/A 01/23/2016 Laterality: N/A; Surgeon: Pineda Troy MD; Location: [facility] CHANGE TUBE GASTROSTOMY N/A 08/20/2015 Laterality: N/A; Surgeon: Yanni Alonzo MD; Location: [facility] EGD DIAGNOSTIC N/A 06/25/2015 Laterality: N/A; Surgeon: Pineda Troy MD; Location: [facility] EGD W/ PLACEMENT OR REPLACEMENT PEG N/A 06/15/2015 Laterality: N/A; Surgeon: Curry Newell MD; Location: [facility] EGD W/ INSERTION TUBE OR CATHETER N/A 06/13/2015 Laterality: N/A; Surgeon: Jose Ty MD; Location: [facility] EGD W/ ULTRASOUND N/A 02/14/2015 Laterality: N/A; Surgeon: Pineda Troy MD; Location: [facility] CHOLECYSTECTOMY CHOLECYSTECTOMY, LAPAROSCOPIC HYSTERECTOMY MEDICATIONS: Current Outpatient Medications Medication Instructions Ergocalciferol (VITAMIN D2) 50,000 Units, Oral, WEEKLY Pancreatic enzymes (Creon) [id number] units Cap DR Particles capsule 72,000 Units, Oral, 2 TIMES DAILY WITH MEALS Current Outpatient Medications: Ergocalciferol 1.25 MG (14460 UT) capsule, Take 1 capsule by mouth once a week., Disp: 8 capsule, Rfl: 0 Pancreatic enzymes (Creon) [id number] units Cap DR Particles capsule, Take 3 [...] Daniel Christiansen MD documented in this encounter [facility] 01-07-2024 Hospital Discharg e instructions Dayday Phipps APRN - CNP - 01/07/2024 5:08 PM EDT Increase fluids. Gregg diet Continue home medication The following attachments cannot be sent through Care Everywhere.Abdominal Pain (Portuguese)Pancreatitis (Portuguese)Pancreatitis: Chronic Diet (Portuguese)documented in this encounter [facility] 09-08-2023 History and physical note ENDOSCOPIC PREPROCEDURE [...] 50,000 Units, Oral, WEEKLY Pancreatic enzymes (Creon) [id number] units [address] Particles capsule 72,000 Units, Oral, 2 TIMES DAILY WITH MEALS Current Outpatient Medications: Ergocalciferol 1.25 MG (84050 UT) capsule, Take 1 capsule by mouth once a week., Disp: 8 capsule, Rfl: 0 Pancreatic enzymes (Creon) [id number] Particles capsule, Take 3 [...] Monitored Anesthesia Care. Sabrina Dee MD, MPH [facility] 09-08-2023 History and physical note ENDOSCOPIC PREPROCEDURE HISTORY AND PHYSICAL HISTORY OF PRESENT ILLNESS: Chioma Rainey is a 53 y.o. female seen in the pre-procedure area at [facility]. The indication for endoscopic [...] 50,000 Units, Oral, WEEKLY Pancreatic enzymes (Creon) [id number] units Cap [address] Particles capsule 72,000 Units, Oral, 2 TIMES DAILY WITH MEALS Current Outpatient Medications: Ergocalciferol 1.25 MG (48991 UT) capsule, Take 1 capsule by mouth once a week., Disp: 8 capsule, Rfl: 0 Pancreatic enzymes (Creon) [id number] Particles capsule, Take 3 [...] Dee MD, MPH documented in this encounter [facility] 09-08-2023 Miscellaneous Notes JOSE LUIS and educated pt on DC instructions, pt verbalized understanding. IV removed per protocol. documented in this encounter [facility] 09-08-2023 Nurse Note Stefano educated pt on DC instructions, pt verbalized understanding. IV removed per protocol. [facility] 05-22-2023 Miscellaneous Notes Called patient to remind them to bring their most current copy of their medication list with them to their appt. Patient verbalizes understanding. documented in this encounter [facility] 05-22-2023 Telephone encounter Note Called patient to remind them to bring their most current copy of their medication list with them to their appt. Patient verbalizes understanding. [facility] 05-11-2023 History of Presen t illness Narrative This Cable Layer verified the patients name and date of [...] management 5. Prior evaluation at [facility] for TPIAT and was [...] (human immunodeficiency virus infection), Hyperlipidemia, Hyperthyroidism, Hypothyroidism, DC (myocardial infarction), Migraine, PEGGY (obstructive sleep apnea), [...] includes the following prescription(s): Pancreatic enzymes (Creon) [id number] Particles capsule and Ergocalciferol 1.25 MG (81325 UT) capsule. Allergies: She is allergic to [...] Hepatology, and Nutrition documented in this encounter [facility] 05-11-2023 Instructions Sabrina Dee MD, MPH - [...] celiac plexus block documented in this encounter [facility] 04-16-2023 Miscellaneous Notes Pt called requesting to schedule a new patient appt. Referral is in media from [employer]. A good phone number to reach the pt: [phone] Referral in media was to [facility] so pt has no referral to nephrology. LM informing pt she would need to have her referring provider fax us over a referral and then I could schedule her a new pt appt. [facility] Telephone encounter Note Pt called requesting to schedule a new patient appt. Referral is in media from [employer] DO. A good phone number to reach the pt: [phone] [facility] 04-16-2023 Telephone encounter Note Referral in media was to [facility] so pt has no referral to nephrology. LM informing pt she would need to have her referring provider fax us over a referral and then I could schedule her a new pt appt. [facility] 04-16-2023 Miscellaneous Notes LMOM for the patient to call and schedule their new pt appointment with [facility]. documented in this encounter [facility] 04-16-2023 Telephone encounter Note LMOM for the patient to call and schedule their new pt appointment with [facility]. [facility] 08-12-2022 History and physical note ENDOSCOPIC PREPROCEDURE HISTORY AND PHYSICAL HISTORY OF PRESENT ILLNESS: Chioma Rainey is a 52 y.o. female seen in the pre-procedure area at [facility]. The indication for endoscopic evaluation includes: Alcohol-induced chronic pancreatitis PAST MEDICAL HISTORY: Past Medical History: Diagnosis Date Anemia Depression H. pylori infection Neutrophilic leukocytosis Pancreatitis SURGICAL HISTORY: Past Surgical History: Procedure Laterality Date EGD W/ ULTRASOUND N/A 12/01/2019 Laterality: N/A; Surgeon: Sabrina Dee MD, MPH; Location: [facility] EGD W/ ULTRASOUND N/A 04/23/2016 Laterality: N/A; Surgeon: Pineda Troy MD; Location: [facility] EGD W/ ULTRASOUND N/A 01/23/2016 Laterality: N/A; Surgeon: Pineda Troy MD; Location: [facility] CHANGE TUBE GASTROSTOMY N/A 08/20/2015 Laterality: N/A; Surgeon: Yanni Alonzo MD; Location: [facility] EGD DIAGNOSTIC N/A 06/25/2015 Laterality: N/A; Surgeon: Pineda Troy MD; Location: [facility] EGD W/ PLACEMENT OR REPLACEMENT PEG N/A 06/15/2015 Laterality: N/A; Surgeon: Curry Newell MD; Location: [facility] EGD W/ INSERTION TUBE OR CATHETER N/A 06/13/2015 Laterality: N/A; Surgeon: Jose Ty MD; Location: [facility] EGD W/ ULTRASOUND N/A 02/14/2015 Laterality: N/A; Surgeon: Pineda Troy MD; Location: [facility] CHOLECYSTECTOMY CHOLECYSTECTOMY, LAPAROSCOPIC HYSTERECTOMY MEDICATIONS: Current Outpatient Medications Medication Instructions Amitriptyline (ELAVIL) 25 mg, Oral, DAILY AT BEDTIME Ergocalciferol (VITAMIN D2) 50,000 Units, Oral, WEEKLY omeprazole (PRILOSEC) 20 mg, Oral, DAILY Pancreatic enzymes (Creon) [id number] units [address] Particles capsule 48,000 Units, Oral, 3 TIMES DAILY WITH MEALS Current Outpatient Medications: omeprazole [address] capsule, Take 1 capsule by mouth daily., Disp: 30 capsule, Rfl: 6 amitriptyline 10 MG tablet, Take 2.5 tablets by mouth at bedtime., Disp: 30 tablet, Rfl: 11 ergocalciferol 1.25 MG (76823 UT) capsule, Take 1 capsule by mouth once a week for 8 doses., Disp: 8 capsule, Rfl: 0 Pancreatic enzymes (Creon) [id number] units [address] Particles capsule, Take 2 [...] Monitored Anesthesia Care. Sabrina Dee MD, MPH [facility] 08-12-2022 History and physical note ENDOSCOPIC PREPROCEDURE HISTORY AND PHYSICAL HISTORY OF PRESENT ILLNESS: Chioma Rainey is a 52 y.o. female seen in the pre-procedure area at [facility]. The indication for endoscopic evaluation includes: Alcohol-induced chronic pancreatitis PAST MEDICAL HISTORY: Past Medical History: Diagnosis Date Anemia Depression H. pylori infection Neutrophilic leukocytosis Pancreatitis SURGICAL HISTORY: Past Surgical History: Procedure Laterality Date EGD W/ ULTRASOUND N/A 12/01/2019 Laterality: N/A; Surgeon: Sabrina Dee MD, MPH; [facility] EGD W/ ULTRASOUND N/A 04/23/2016 Laterality: N/A; Surgeon: Pienda Troy MD; Location[facility] EGD W/ [...] 20 mg, Oral, DAILY Pancreatic enzymes (Creon) 56297-[address] Particles capsule 48,000 Units, Oral, 3 TIMES DAILY WITH MEALS Current Outpatient Medications: omeprazole [address] capsule, Take 1 capsule by mouth daily., Disp: 30 capsule, Rfl: 6 amitriptyline 10 MG tablet, Take 2.5 tablets by mouth at bedtime., Disp: 30 tablet, Rfl: 11 ergocalciferol 1.25 MG (59293 UT) capsule, Take 1 capsule by mouth once a week for 8 doses., Disp: 8 capsule, Rfl: 0 Pancreatic enzymes (Creon) 44187-[address] Particles capsule, Take 2 [...] Dee MD, MPH documented in this encounter [facility] 08-12-2022 Nurse Note PT Given discharge paperwork and reviewed per MD and nurse. Broadcaster available.Diet and restrictions reviewed as well. Venous access removed no complications noted. Ok to d/c Anesthesia and procedural MD. documented in this encounter [facility] 08-12-2022 Nurse Surgical operation note PT Given discharge paperwork and reviewed per MD and nurse. Broadcaster available.Diet and restrictions reviewed as well. Venous access removed no complications noted. Ok to d/c Anesthesia and procedural MD. [facility] 06-16-2022 History of Presen t illness Narrative This Cable Layer verified the patients name and date of [...] management 5. Prior evaluation at [facility] for TPIAT and was not a candidate 6. Last CT was at [facility] in 05/2019: No calcification [...] (human immunodeficiency virus infection), Hyperlipidemia, Hyperthyroidism, Hypothyroidism, DC (myocardial infarction), Migraine, PEGGY (obstructive sleep apnea), [...] amitriptyline 10 MG tablet, ergocalciferol 1.25 MG (10174 UT) capsule, and Pancreatic enzymes (Creon) 61925-[address] Particles capsule. Allergies: She [...] Hepatology, and Nutrition documented in this encounter [facility] 06-16-2022 Instructions Sabrina Dee MD, MPH - 06/16/2022 11:00 AM EDT Schedule EUS celiac plexus block; EGD dilation Referral to endocrinology; appointment to be scheduled Return to clinic in Mar 2023 Smoking cessation Vitamin D 2000 units daily Calcium supplement 1 gram daily Omeprazole (Prilosec) 20mg daily, take at least 30 mins before dinner documented in this encounter [facility] 01-28-2022 Miscellaneous Notes Attending physician in room speaking with patient and family on results. Attending physician ok for discharge. Pt ambulated unassisted with steady gait and balance. IV removed and discharge instructions given with verbal ok by patient of understanding. Pt discharged via w/c with newspaper delivery driver from unit. Dr dee aware patient ready for results Updated dr goins on patient pain and received new orders documented in this encounter [facility] 01-28-2022 Note Formatting of this n ote might be different from the original. Attending physician in room speaking with patient and family on results. Attending physician ok for discharge. Pt ambulated unassisted with steady gait and balance. IV removed and discharge instructions given with verbal ok by patient of understanding. Pt discharged via w/c with newspaper delivery driver from unit. [facility] 01-28-2022 Note Formatting of this n ote might be different from the original. Dr dee aware patient ready for results [facility] 01-28-2022 Note Formatting of this n ote might be different from the original. Updated dr goins on patient pain and received new orders [facility] 01-28-2022 History and physical note ENDOSCOPIC PREPROCEDURE HISTORY AND PHYSICAL HISTORY OF PRESENT ILLNESS: Chioma Rainey is a 51 y.o. female seen in the preoprocedure area at [facility] ENDOSCOPY. The indication for endoscopic evaluation includes: Recurrent acute pancreatitis PAST MEDICAL HISTORY: Past Medical History: Diagnosis Date Anemia Depression H. pylori infection Neutrophilic leukocytosis Pancreatitis SURGICAL HISTORY: Past Surgical History: Procedure Laterality Date EGD W/ ULTRASOUND N/A 12/01/2019 Laterality: N/A; Surgeon: Sabrina Dee MD, MPH; Location: [facility] ENDOSCOPY EGD W/ ULTRASOUND N/A 04/23/2016 Laterality: N/A; Surgeon: Pineda Troy MD; Location: [facility] ENDOSCOPY EGD W/ ULTRASOUND N/A 01/23/2016 Laterality: N/A; Surgeon: Pineda Troy MD; Location: [facility] ENDOSCOPY CHANGE TUBE GASTROSTOMY N/A 08/20/2015 Laterality: N/A; Surgeon: Yanni Alonzo MD; Location: [facility] ENDOSCOPY EGD DIAGNOSTIC N/A 06/25/2015 Laterality: N/A; Surgeon: Pineda Troy MD; Location: [facility] ENDOSCOPY EGD W/ PLACEMENT OR REPLACEMENT PEG N/A 06/15/2015 Laterality: N/A; Surgeon: Curry Newell MD; Location: [facility] ENDOSCOPY EGD W/ INSERTION TUBE OR CATHETER N/A 06/13/2015 Laterality: N/A; Surgeon: Jose Ty MD; Location: [facility] ENDOSCOPY EGD W/ ULTRASOUND N/A 02/14/2015 Laterality: N/A; Surgeon: Pineda Troy MD; Location: [facility] ENDOSCOPY CHOLECYSTECTOMY CHOLECYSTECTOMY, LAPAROSCOPIC HYSTERECTOMY MEDICATIONS: Current Outpatient Medications Medication Instructions amitriptyline (ELAVIL) 25 mg, Oral, DAILY AT BEDTIME ergocalciferol (VITAMIN D2) 50,000 Units, Oral, WEEKLY Pancreatic enzymes (Creon) 13813-[address] Particles capsule 48,000 Units, Oral, 3 TIMES DAILY WITH MEALS Current Outpatient Medications: amitriptyline 10 MG tablet, Take 2.5 tablets by mouth at bedtime., Disp: 30 tablet, Rfl: 11 Pancreatic enzymes (Creon) 8[address]88-[address] Particles capsule, Take 2 capsules by mouth 3 times daily with meals., Disp: 180 capsule, Rfl: 0 ergocalciferol 1.25 MG (04354 UT) capsule, Take 1 capsule by mouth [...] Monitored Anesthesia Care. Sabrina Dee MD, MPH [facility] 01-28-2022 History and physical note ENDOSCOPIC PREPROCEDURE HISTORY AND PHYSICAL HISTORY OF PRESENT ILLNESS: Chioma Rainey is a 51 y.o. female seen in the preoprocedure area at [facility] ENDOSCOPY. The indication for endoscopic evaluation includes: Recurrent acute pancreatitis PAST MEDICAL HISTORY: Past Medical History: Diagnosis Date Anemia Depression H. pylori infection Neutrophilic leukocytosis Pancreatitis SURGICAL HISTORY: Past Surgical History: Procedure Laterality Date EGD W/ ULTRASOUND N/A 12/01/2019 Laterality: N/A; Surgeon: Sabrina Dee MD, MPH; Location: [facility] ENDOSCOPY EGD W/ ULTRASOUND N/A 04/23/2016 Laterality: N/A; Surgeon: Pineda Troy MD; Location: [facility] ENDOSCOPY EGD W/ ULTRASOUND N/A 01/23/2016 Laterality: N/A; Surgeon: Pineda Troy MD; Location: [facility] CHANGE TUBE GASTROSTOMY N/A 08/20/2015 Laterality: N/A; Surgeon: Yanni Alonzo MD; Location: [facility] ENDOSCOPY EGD DIAGNOSTIC N/A 06/25/2015 Laterality: N/A; Surgeon: Pineda Troy MD; Location: [facility] EGD W/ PLACEMENT OR REPLACEMENT PEG N/A 06/15/2015 Laterality: N/A; Surgeon: Curry Newell MD; Location: [facility] ENDOSCOPY EGD W/ INSERTION TUBE OR CATHETER N/A 06/13/2015 Laterality: N/A; Surgeon: Jose Ty MD; Location: [facility] ENDOSCOPY EGD W/ ULTRASOUND N/A 02/14/2015 Laterality: N/A; Surgeon: Pineda Troy MD; Location: [facility] ENDOSCOPY CHOLECYSTECTOMY CHOLECYSTECTOMY, LAPAROSCOPIC HYSTERECTOMY MEDICATIONS: Current Outpatient Medications Medication Instructions amitriptyline (ELAVIL) 25 mg, Oral, DAILY AT BEDTIME ergocalciferol (VITAMIN D2) 50,000 Units, Oral, WEEKLY Pancreatic enzymes (Creon) [address] Particles capsule 48,000 Units, Oral, 3 TIMES DAILY WITH MEALS Current Outpatient Medications: amitriptyline 10 MG tablet, Take 2.5 tablets by mouth at bedtime., Disp: 30 tablet, Rfl: 11 Pancreatic enzymes (Creon) [address] Particles capsule, Take 2 capsules by mouth 3 times daily with meals., Disp: 180 capsule, Rfl: 0 ergocalciferol 1.25 MG (12184 UT) capsule, Take 1 capsule by mouth [...] MD, MPH documented in this encounter [facility] 12-16-2021 History of Presen t illness [...] management 5. Prior evaluation at [facility] for TPIAT and was not a candidate 6. Last CT was at [facility] in 05/2019: No calcification [...] (human immunodeficiency virus infection), Hyperlipidemia, Hyperthyroidism, Hypothyroidism, DC (myocardial infarction), Migraine, PEGGY (obstructive sleep apnea), [...] 10 MG tablet and Pancreatic enzymes (Creon) [address] Particles capsule. Allergies: She [...] in 6 months documented in this encounter [facility] 12-16-2021 Instructions Sabrina Dee MD, MPH - 12/16/2021 11:30 AM EDT Schedule DEXA scan Schedule colonoscopy Schedule EUS Start vitamin D 1,000 units daily. Start calcium supplements 1g daily RTC in 6 months documented in this encounter [facility] 03-19-2021 Evaluation note Encounter Date Diagnosis [...] Patient care instructions given in writting by [facility] Care At Home document [employer] Other [id number] History general Narrative - Reported* Type Description Date Medical History chronic pancreatitis Medical History chronic pain Medical History former alcoholic Surgical History [facility] Surgical History GALLBLADDER Surgical History COLON-[facility] Hospitalization History see above [employer] Other Evaluation noteNo assessment information available [facility] Work Phone: Evaluation note* Diagnosis Recurrent acute pancreatitis- Primary Acute pancreatitis History of smoking 25-50 pack years Alcohol-induced chronic pancreatitis Chronic pancreatitis Epigastric pain Abdominal pain, epigastric Encounter for screening colonoscopy Special screening for malignant neoplasms, colon [facility] Diagnosis Recurrent acute pancreatitis Acute pancreatitis History of smoking 25-50 pack years Encounter for screening colonoscopy Special screening for malignant neoplasms, colon [facility] Diagnosis Other osteoporosis without current pathological fracture- Primary Recurrent acute pancreatitis Acute pancreatitis Encounter for screening colonoscopy Special screening for malignant neoplasms, colon [facility] Diagnosis Encounter for screening colonoscopy Special screening for malignant neoplasms, colon [facility] Diagnosis Osteoporosis without current pathological fracture, unspecified osteoporosis type- Primary Alcohol-induced chronic pancreatitis Chronic pancreatitis [facility] Diagnosis Alcohol-induced chronic pancreatitis Chronic pancreatitis [facility] Diagnosis Alcohol-induced chronic pancreatitis- Primary Chronic pancreatitis Encounter for screening for malignant neoplasm of colon Special screening for malignant neoplasms, colon Other osteoporosis without current pathological fracture Epigastric pain Abdominal pain, epigastric Smoking Tobacco use disorder Gastroesophageal reflux disease without esophagitis Esophageal reflux [facility] Diagnosis Alcohol-induced chronic pancreatitis Chronic pancreatitis [facility] Diagnosis Alcohol-induced chronic pancreatitis Chronic pancreatitis [facility] Diagnosis Hypokalemia- Primary Hypopotassemia Acute recurrent pancreatitis Acute pancreatitis documented in this encounter [facility] note* Diagnosis Acute on chronic pancreatitis (HCC)- Primary Abdominal pain, epigastric documented in this encounter [facility] note* Diagnosis Acute pancreatitis without infection or necrosis, unspecified pancreatitis type- Primary Acute recurrent pancreatitis Acute pancreatitis documented in this encounter [facility] Discharge instructions Additional Instructions Fluids Phenergan if needed for nausea vomiting Bentyl as needed for abdominal pain Follow-up with your GI specialist call Thursday for appointment Return here if any problems persist or worsen [facility] Work Phone: Hospital Discharge instructions Additional Instructions Clear with diet today and advance as tolerated Push fluids Percocet if needed for severe pain Zofran or Phenergan if needed for nausea vomiting Keep your doctor's appointment tomorrow as planned Return here if you develop any increased pain, vomiting unable to be controlled, fevers, chills or any other concern[facility] Phone: Hospital Discharge instructions Additional Instructions Follow-up with your primary care doctor Return to ED if develop worsening symptoms or concerns[facility]: Hospital Discharge instructions Additional Instructions Follow-up with your private physician as your calcium was slightly elevated Return if symptoms are worse Lots of fluids/no alcoholSelect [facility]: Hospital Discharge instructions* Attachments The following attachments cannot be sent through Care Everywhere. * Clear Liquid Diet: General Info (Portuguese) [facility] System[facility]ructionsNot on file documented in this encounterGood [facility] HospitalInstructionsNot on file [facility] Discharge Instructions * Jose Brown PA-C - [...] Log into your personal health record on [email or web address] and enter E907 in the Education box to learn more about Abdominal Pain: Care Instructions. Current as of: August 03, 2015 Content Version: 11.2 0724-6459 [employer]. Care instructions adapted under license by your healthcare professional. If you have questions about a medical condition or this instruction, always ask your healthcare professional. [employer] disclaims any warranty or liability for your [...] Log into your personal health record on [email or web address] and enter G008 in the Education box to learn more about Nausea and Vomiting: Care Instructions. Current as of: August 03, 2015 Content Version: 11.2 6547-4765 Climateminder. Care instructions adapted under license by your healthcare professional. If you have questions about a medical condition or this instruction, always ask your healthcare professional. [employer] disclaims any warranty or liability for your use of this information. Please review regarding your visit: Please note that your blood pressure during this ER visit was above 120/80 mmHg. YOUR BP READING WAS: 111/88 The [place] [employer] (AHA) defines a normal blood [...] review at your convenience for more information: [email or web address] in this encounter* Discharge Instr - Other Orders - Poncho Sparks RN - 05/15/2017 1:20 PM EST Patient voices desire to leave hospital AMA. IV removed. Patient is ambulatory in care of spouse. [facility] hospitalist notified. in this encounter* Montse Khan CNP - 08/24/2017 Seek medical attention if you have worsening symptoms or other concerns. Please follow up with your family doctor or one of your choosing. You may find a provider through the [facility] Physician Referral Service by calling [phone] ([phone]) or by visiting [email or web address] Chioma, Thank You for choosing [facility]! The following attachments cannot be sent through Care Everywhere. * Nausea and Vomiting (Portuguese) * Gastroenteritis (Portuguese) * Diarrhea (Portuguese) in this encounter The following attachments cannot be sent through Care Everywhere. * Pancreatitis (Portuguese) in this encounter* Instructions* Laura Meyer RN - 08/25/2019 Patient Instructions: Activity: activity as tolerated Diet: encourage fluids GI specialist in 2 weeks. * Attachments The following attachments cannot be sent through Care Everywhere. * Pancreatitis: Chronic Diet (Portuguese) * Pancreatitis (Portuguese) documented in this encounter Assessments Diagnosis Epigastric [...] Documents on File Type Date Recorded Patient Glove Turner And Former Automatic Expl anation Advance Directives and Living Will Power of Software Project Manager Latest Code Status on File Code Status Date Activated Date Inactivated Comments Full Code 08/22/2019 4:27 PM Documents on File Type Date Recorded Patient Glove Turner And Former Automatic Expl anation Advance Directives and Livin g [...] Documents on File Type Date Recorded Patient Glove Turner And Former Automatic Expl anation ACP-Advance Directive ACP-Power of Software Project Manager Latest Code Status on File Code Status [...] Comments 06/24/2015 9:16 PM 07/01/2015 5:31 PM Latest Code Status on File Code Status Date Activated Date Inactivated Comments Full Code 08/22/2019 4:27 PM 08/25/2019 12:21 PM Date Activated Date Inactivated Comments 08/22/2019 4:27 PM 08/25/2019 12:21 PM History of Present Illness * Laura [...] toradol is contraindicated. Called Dr. Hughes back, jingle writer explained that patient is tolerating dilaudid. Dr. Hughes ordered dose of dilaudid increased from 0.25 mg to 0.5 mg q4 hrs PRN. * Ladan Stearns RN - 08/24/2019 1:27 PM EDT Patient walking in hallway at this time. * Ladan Stearns RN - 08/24/2019 9:14 AM EDT Field Reviewer to patients bedside at this time to reassess pain. Patient sitting in chair, appears restless and is tearful. Patient states Dilaudid did not help the pain, states there is nothing jingle writer can do as she deals with [...] Scheduled for EGD in September with her Payment Analyst at [facility] Discharge Planning -- Home when stable Carley Camara APRN, SKIN DRIER-C Associated attestation - Rajeev Cantor MD - 08/24/2019 5:30 PM EDT Attending Supervising Physician s Attestation Statement I have personally evaluated and examined the patient [id number] in conjunction with the nurse practitioner. I [...] Examined and Reviewed plan of care with SKIN DRIER. Directions and discussion about care and plans. [...] Birmingham RN - 08/23/2019 4:40 PM EDT Field Reviewer contacted Dr. Cantor regarding update that patient [...] he would not give order for Benedryl. Field Reviewer let nurse know that if patient's c/o ithcing and redness doesn't improve in an hour, that jingle writer will be calling back to update physician. * Brie Birmingham RN - 08/23/2019 3:20 PM EDT Field Reviewer called into patient's room d/t patient c/o itching, feeling hot , and slight redness noted to BUE and face. Field Reviewer contacted Dr. Cantor office and left message with his nurse, asking for IV Benedryl and d/c of Lovenox. Patient thinks she may have had reaction to Lovenox in the past, and thatis the only other med she is currently taking here other than Dilaudid. Field Reviewer did once again verify that patient usually [...] medically stable. Patient lives with her in [place]. She uses no DME and has no outside services currently in place. Patient provides for her own transportation needs and manages her medications. She is independent with her ADL's. PCP is [facility]. Patient has [facility] Medicaid and denies needing further assistance with the cost of her medications. Discharge plan is home with no additional services at this time. Patient is a 'Full Code' status. She has no healthcare directives and voices that she is not interested in pursuing these documents further. FIRE FIGHTER to monitor and assist with discharge planning [...] [place] RN - 08/23/2019 9:05 AM EDT Field Reviewer made FOREIGN LANGUAGE PROFESSOR aware that patient is vomiting at this time since clear liquid diet added. Field Reviewer to give Zofran and place patient back [...] weight loss, but states of weight gain. [id number] Discussed need to re-zero Pt bed to verify gain. She declined education needs states she has a GI doctor and RDN at the [facility]. Reports following the guidelines they recommended. [...] 5. Fluid Accumulation-No significant fluid accumulation, 6. Security Expert Strength-Not measured Nutrition Risk Level: Moderate Nutrient Needs: Estimated Daily Total Kcal: 3779-9735(20-23/kg) Estimated Daily Protein (g): 65-75g(1.3-1.5g/kg) Estimated Daily [...] weight gain/23%, recommend to re-zero Pt bed Bryant Body Wt: 110 lb (49.9 kg), % Bryant Body 129% BMI Classification: BMI 25.0 - [...] Nausea or Vomiting, Patient/Family Education Contact Number: [phone] * Carley Camara, YARD MOTOR OPERATOR - FOREIGN LANGUAGE PROFESSOR - 08/23/2019 7:30 AM EDT Progress Note [...] Daily Discharge Plan--later today/tomorrow Carley Camara APRN, SKIN DRIER-C Associated attestation - Rajeev Cantor MD - 08/23/2019 12:04 PM EDT Attending Supervising Physician s Attestation Statement I have personally evaluated and examined the patient [id number] in conjunction with the nurse practitioner. I [...] Examined and Reviewed plan of care with SKIN DRIER. Directions and discussion about care and plans. [...] of running a code on another patient; security field supervisor states that report will be called when able. Field Reviewer unable to get ahold of staff inED to put patient in geriatric care manager so that jingle writer can transfer patient over to [facility]. [...] Diagnoses Alcohol-induced chronic pancreatitis Procedures UPPER EUS [place] ESOPHAGOGASTRODUODENOSCOPY US SCOPE W/ADJ STRXRS Sabrina Dee MD, MPH [address] [place] [address] Referral ID Status Reason Start Date Expiration Date V isits Requested Visits Authorized [id number] New Request 06/16/2022 07/11/2023 1 1 Specialty Diagnoses / Procedures Referred By Contac t Referred To Contact Endocrinology, Diabetes & Metabolism Diagnoses Osteoporosis without current pathological fracture, unspecified osteoporosis type Sabrina Dee MD, MPH [address] [place] [address] Referral ID Status Reason Start Date Expiration Date V isits Requested Visits Authorized [id number] New Request 06/16/2022 07/11/2023 1 1 Specialty Diagnoses / Procedures Referred By Contac t Referred To Contact Diagnoses Encounter for screening colonoscopy Procedures SCREENING COLONOSCOPY [place] COLON CA SCRN NOT HI RSK IND Sabrina Dee MD, MPH [address] [place] [address] Referral ID Status Reason Start Date Expiration Date V isits Requested Visits Authorized [id number] New Request 12/16/2021 01/10/2023 1 1 Specialty Diagnoses / Procedures Referred By Contac t Referred To Contact Diagnoses Recurrent acute pancreatitis History of smoking 25-50 pack years Procedures BONE DENSITY AXIAL (HIP, PELVIS, SPINE) Sabrina Dee MD, MPH [address] [place] [address] Referral ID Status Reason Start Date Expiration Date V isits Requested Visits Authorized [id number] New Request 12/16/2021 01/10/2023 1 1 Specialty Diagnoses / Procedures Referred By Contac t Referred To Contact Diagnoses Recurrent acute pancreatitis Procedures UPPER EUS [place] EGD US GUIDED TRANSMURAL INJXN/FIDUCIAL MARKER Sabrina Dee MD, MPH [address] [place] [id number] Referral ID Status Reason Start Date Expiration Date V isits Requested Visits Authorized [id number] New Request 12/16/2021 01/10/2023 1 1 Additional Source Comments ED Notes - Vickie Dill RN - 06/09/2017 10:40 AM EDTED Notes - Vickei Dill RN - 06/09/2017 9:51 AM EDTED [...] the patient. I discussed the patient with SKIN DRIER/PA. I agree with the SKIN DRIER/PA treatment plan. I agree with the SKIN DRIER/PA plan of care. I agree with the SKIN DRIER/PA dispo as documented. 46-year-old female presents with abdominal pain. She states I have chronic pancreatitis and this feels like a flareup . States that she took her usual Phenergan and Roxton with minimal relief so came the emergency [...] is going to follow with her assistant district attorney with whom she has an appointment on [...] different from the original. ED PROVIDER NOTE [facility] EMERGENCY DEPARTMENT NAME: Chioma Rainey AGE: 46 y.o. : 1970 VISIT DATE: 06/09/2017 CSN: [id number] PCP: Elie Nichols MD Chief Complaint Patient [...] Phenergan suppository. She states that she took Roxton last night. Last dose of Roxton was around 9 PM last night. She [...] Procedure: EGD; Surgeon: Romain Dumont MD; Location: [facility]; Service: HYSTERECTOMY ORIF PELVIS ORTHOPEDIC SURGERY [...] SpO2 Height Weight 06/09/17 0720 111/88 98.4 F (36.9 C ) Oral (!) 125 16 98 % 5' [...] Yellow Clarity, Urine Cloudy (A) Clear Specific Nitro 1.024 1.005 - 1.025 pH, Urine 5.0 [...] suppositories. She has follow-up with her assistant district attorney at [facility] in 2 weeks. Do not feel [...] Information 1. Pineda Troy MD. Specialty: Gastroenterology [address] [place] [address] Contact information for after-discharge care Follow-up information has not been specified. New Prescriptions No medications on file (Please note that portions of this note may have been completed with a voice recognition software. Efforts were made to correct any errors, but occasionally words are mis-transcribed.) Jose Brown PA-C 06/09/17 5830 Pt states I have pancreatitis and I am having a flare up since last night . Pt relates mid abdominal pain that shoots into the left side of her back. Pt has been taking prescribed Roxton without relief and states she has been vomiting.in this encounter I personally interviewed the patient. I personally examined the patient. I discussed the patient with SKIN DRIER/PA. I agree with the SKIN DRIER/PA treatment plan. I agree with the SKIN DRIER/PA plan of care. I agree with the SKIN DRIER/PA dispo as documented. I saw evaluate this [...] different from the original. ED PROVIDER NOTE [facility] MEDICAL OBSERVATION NAME: Chioma Rainey AGE: 46 y.o. : 1970 VISIT DATE: 05/14/2017 CSN: [id number] PCP: Elie Nichols MD Chief Complaint Patient [...] Procedure: EGD; Surgeon: Romain Dumont MD; Location: [facility]; Service: HYSTERECTOMY ORIF PELVIS ORTHOPEDIC SURGERY [...] Resp SpO2 Height Weight 05/14/171999 132/74 97.7 F (36.5 C ) Oral 81 17 98 % - - 05/14/17 1743 113/75 97.7 F (36.5 C ) Oral 76 18 99 % - - 05/14/17 1512 117/79 - - 77 15 99 % - - 05/14/17 1258 (!) 126/93 98.1 F (36.7 C ) Oral 95 16 99 % 5' 2 [...] Colorless, Yellow Clarity, Urine Clear Clear Specific Nitro 1.006 1.005 - 1.025 pH, Urine 5.0 [...] in the left lower pelvis. Workstation ID: [id number] Procedures [facility] This is a 46-year-old female with past [...] different from the original. ED PROVIDER NOTE [facility] EMERGENCY DEPARTMENT NAME: Chioma Rainey AGE: 47 y.o. : 1970 VISIT DATE: 08/24/2017 CSN: [id number] PCP: Elie Nichols MD Chief Complaint Patient [...] Procedure: EGD; Surgeon: Romain Dumont MD; Location: [facility]; Service: HYSTERECTOMY ORIF PELVIS ORTHOPEDIC SURGERY [...] % - - 08/24/17 1341 125/82 98.3 F (36.8 C ) 87 18 99 % 5' 2 53.5 [...] or performed during the hospital encounter of 06/18/18 BMP Result Value Ref Range Sodium 142 [...] Yellow Clarity, Urine Hazy (A) Clear Specific Nitro 1.006 1.005 - 1.025 pH, Urine 7.0 [...] probably remain. 5. Small left adrenal adenoma. [employer] Workstation ID: [id number] Procedures MDM 47-year-old female [...] she did vomit. She was then given [place] Phenergan and a dose of Toradol. She [...] Internal Medicine Why: follow up ER visit [address] [place] [address] Contact information for after-discharge care Follow-up information [...] the patient. I discussed the patient with SKIN DRIER/PA. I agree with the SKIN DRIER/PA treatment plan. I agree with the SKIN DRIER/PA plan of care. I agree with the SKIN DRIER/PA dispo as documented. Formatting of this note may be different from the original. ED PROVIDER NOTE [facility] EMERGENCY DEPARTMENT NAME: Chioma Rainey AGE: 47 y.o. : 1970 VISIT DATE: 03/04/2018 CSN: [id number] PCP: Elie Nichols MD Chief Complaint Patient [...] Procedure: EGD; Surgeon: Romain Dumont MD; Location: [facility]; Service: HYSTERECTOMY ORIF PELVIS ORTHOPEDIC SURGERY [...] Colorless, Yellow Clarity, Urine Clear Clear Specific Nitro 1.004 (L) 1.005 - 1.025 pH, Urine [...] Comment Hospitalize [facility]ending Provider [facility] [[id number]] Phone call required?: No Follow-up Information Follow-up [...] different from the original. Adonis Negro MD [facility] Hospitalists History and Physical Patient Name:Chioma Rainey MR #:[id number] :1970 Admit Date: [id number] Physicians: Elie Nichols [...] Procedure: EGD; Surgeon: Romain Dumont MD; Location: [facility]; Service: HYSTERECTOMY ORIF PELVIS ORTHOPEDIC SURGERY [...] > > > Vital Signs: Temp: [97.7 F (36.5 C )-98.1 F (36.7 C )] 97.7 F (36.5 C ) Heart Rate: [76-95] 76 Resp: [15-18] 18 [...] Diagnoses Acute recurrent pancreatitis Rajeev Cantor MD [address] [place] [address], [place] [address] [place] Reason Comments Abdominal Pain Pt c/o abdominal [...] Dee MD, MPH [address] [place] [address] Referral ID Status Reason Start Date Expiration Date V isits Requested Visits Authorized [id number] New Request 12/16/2021 01/10/2023 1 1 Specialty Diagnoses / Procedures Referred By Zia espinal Referred To Contact Diagnoses Recurrent acute pancreatitis Procedures UPPER EUS [place] EGD US GUIDED TRANSMURAL INJXN/FIDUCIAL MARKER Sabrina Dee MD, MPH [address] [place] [phone] Referral ID Status Reason Start Date Expiration Date V isits Requested Visits Authorized [id number] New Request 12/16/2021 01/10/2023 1 1 Specialty Diagnoses / Procedures Referred By Contac t Referred To Contact Diagnoses Encounter for screening colonoscopy Procedures SCREENING COLONOSCOPY [place] COLON CA SCRN NOT HI RSK IND Sabrina Dee MD, MPH [address] [place] [phone] Referral ID Status Reason Start Date Expiration Date V isits Requested Visits Authorized [id number] New Request 12/16/2021 01/10/2023 1 1 Reason Comments Follow-up 6 month follow up Specialty Diagnoses / Procedures Referred By Contac t Referred To Contact Diagnoses Alcohol-induced chronic pancreatitis Procedures UPPER EUS [place] ESOPHAGOGASTRODUODENOSCOPY US SCOPE W/ADJ STRXRS Sabrina Dee MD, MPH [address] [place] [phone] Referral ID Status Reason Start Date Expiration Date V isits Requested Visits Authorized [id number] New Request 06/16/2022 07/11/2023 1 1 Reason Comments Follow-up Specialty Diagnoses / Procedures Referred By Contac t Referred To Contact Diagnoses Alcohol-induced chronic pancreatitis Procedures UPPER EUS [place] EGD US GUIDED TRANSMURAL INJXN/FIDUCIAL MARKER Sabrina Dee MD, MPH [address] [place] [phone] Referral ID Status Reason Start Date Expiration Date V isits Requested Visits Authorized [id number] New Request 05/11/2023 06/04/2024 1 1 Referral ID Status Reason Start Date Expiration Date V isits Requested Visits Authorized [id number] New Request 12/23/2023 01/16/2025 1 1 Reason Comments Abdominal Pain Mid epigastric pain onset Thursday. Patient states she has chronic pancreatitis and believes she is having a flare-up. She attempted to use phenergan and PO dilaudid with minimal improvement. She reports nausea/vomiting. Has appointment with GI on 01/19/24. Reason Comments Abdominal Pain Pt c/o LUQ pain, N/V since Thursday. Pt notes hx of pancreatitis and states s/s feel same. Vomiting Nausea INFORMATION SOURCE (unrecogn ized section and content) DATE CREATED AUTHOR 03/09/2018 [facility] DATE CREATED AUTHOR AUTHOR'S ORGANIZ ATION 04/08/2021 [facility] DATE CREATED AUTHOR AUTHOR'S ORGANIZ ATION 06/18/2022 [facility] DATE CREATED AUTHOR AUTHOR'S ORGANIZ ATION 09/02/2023 [facility] DATE CREATED AUTHOR AUTHOR'S ORGANIZ ATION 01/20/2024 [facility] DATE CREATED AUTHOR AUTHOR'S ORGANIZ ATION 03/23/2024 [facility] DATE CREATED AUTHOR AUTHOR'S ORGANIZ ATION 04/09/2024 [facility] Care Teams (unrecognized sec tion [...] Active Christa Lopez PA-C Emergency Provider Active 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 Relationship Specialty Start Date End Date Pineda Troy MD [address] [place] [address] PCP - Referring 1 Gastroenterology 09/25/17 [facility], Other [address] [place] [address] PCP - General 11/28/19 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 Operator Relationship Specialty Start Date End Date Pineda Troy MD [address] [place] [address] PCP - Referring 1 Gastroenterology 09/25/17 [facility], Other [address] [place] [facility] [place] [address] PCP - General 11/28/19 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 Operator Relationship Specialty Start Date End Date Pineda Troy MD [address] [place] [phone] PCP - Referring 1 Gastroenterology 09/25/17 [facility], Other [address] [place] [facility] [place] [address] PCP - General 11/28/19 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 Operator Relationship Specialty Start Date End Date Pineda Troy MD [address] [place] [address], [place] [phone] PCP - Referring 1 Gastroenterology 09/25/17 [facility], Other [address] [place] [address] PCP - General 11/28/19 Team Status: Inactive Member Role Status Dates NON STAFF Primary Care Provider Active Agustin Llanes MD Emergency Provider Active 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 Operator Relationship Specialty Start Date End Date Pineda Troy MD [address] [place] [phone] PCP - Referring 1 Gastroenterology 09/25/17 [facility], Other [address] [place] [address] PCP - General 11/28/19 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 Operator Relationship Specialty Start Date End Date Pineda Troy MD [address] [place] [phone] PCP - Referring 1 Gastroenterology 09/25/17 [facility], Other [address] [place] [facility] [place] [address] PCP - General 11/28/19 Team Status: Inactive [...] April 11, 2023 End: April 12, 2023 Team Status: Inactive Member Role Status Dates NON STAFF Primary Care Provider Active Start: April 18, 2023 End: April 18, 2023 Xiang Kellogg MD Emergency Provider Active Star t: April 18, 2023 End: April 18, 2023 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 Operator Relationship Specialty Start Date End Date Pineda Troy MD [facility] [address] [place], [place] [phone] PCP - Referring 1 Gastroenterology 09/25/17 [facility], Other [address] [place] [address] PCP - General 11/28/19 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 Operator Relationship Specialty Start Date End Date Pineda Troy MD PCP - Referring 1 Gastroenterology 09/25/17 [facility], Other [address] [place] [facility] [place] [address] PCP - General 11/28/19 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 Operator Relationship Specialty Start Date End Date Pineda Troy MD PCP - Referring 1 Gastroenterology 09/25/17 [facility], Other [address] [place] [facility] [place] [address] PCP - General 11/28/19 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 Operator Relationship Specialty Start Date End Date [facility] [address] [place] PCP - General Family Medicine 03/26/23 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 Operator Relationship Specialty Start Date End Date [facility] [address] [place] PCP - General Family Medicine 03/26/23 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 Operator Relationship Specialty Start Date End Date [facility] [address] [place] PCP - General Family Medicine 03/26/23 Goals (unrecognized section and content) Goals may be documented in a n alternate section Ordered Prescriptions (unrec ognized section and content) Prescription Sig Dispensed Refills Start Date End Da te promethazine (PHENERGAN) 25 MG tablet Take 1 tablet by mouth every 6 hours as needed for Nausea 12 tablet 0 09/29/2023 10/06/2023 pantoprazole (PROTONIX) 40 MG tablet Take 1 tablet by mouth every morning (before breakfast) 90 tablet 1 09/29/2023 HYDROcodone-acetaminophe n (NORCO) 5-325 MG per tablet Take 1 tablet by mouth every 4 hours as needed for Pain for up to 7 days. Intended supply: 7 days. Take lowest dose possible to manage pain Max Daily Amount: 6 tablets 12 tablet 0 09/29/2023 10/06/2023 Prescription Sig Dispensed Refills Start Date End Da te ondansetron (ZOFRAN-ODT) 4 MG disintegrating tablet Take 1 tablet by mouth 3 times daily as needed for Nausea or Vomiting 21 tablet 04/07/2024 HYDROcodone-acetaminophen (NORCO) 5-325 MG per tabletIndications:Acute pancreatitis without infection or necrosis, unspecified pancreatitis type Take 1 tablet by mouth every 6 hours as needed for Pain for up to 3 days. Intended supply: 3 days. Take lowest dose possible to manage pain Max Daily Amount: 4 tablets 12 tablet 04/07/2024 04/10/2024 Scheduled Active and Recently Administ ered Medications (unrecognized section and content) Medication Order 09/27/2023 09/28/2023 09/29/2023 diphenhydrAMINE (BENADRYL) injection 50 mg 50 mg, IntraVENous, ONCE, 1 dose, On Thu09/29/23 at 2044, IV Push at rate not to exceed 25 mg/min. 2045 (Not Given - Pr ovider: Joyce Soria RN - Reason: Patient/family refused) hydrocodone-acetaminophen (NORCO) tablet 5-325 mg (STARTER PACK) This order is for a take home starter pack of medication. Please document Furnish to patient on the 2137 (Furnished to P atient - Provider: Joyce Soria RN) HYDROmorphone HCl PF (DILAUDID) injection 0.5 mg (COMPLETED) 0.5 mg, IntraVENous, ONCE, 1 dose, On Thu09/29/23 at 2014, If oral and IV narcotics ordered, use oral first and only use IV if oral is ineffective or cannot take oral. Do Not give oral and IV within 1 hour of each other unless specifically ordered. 2021 (Given - Provid er: Joyce Soria RN) pantoprazole (PROTONIX) 80 mg in sodium chloride 0.9 % 50 mL bolus (COMPLETED) 80 mg, IntraVENous, at 100 mL/hr, Administer over 30 Minutes, ONCE, On Thu09/29/23 at 2014, For 1 dose 2028 (New Bag - Prov ider: Joyce Soria RN)2100 (Stopped - Provider: Joyce Soria RN) potassium chloride 10 mEq/100 mL IVPB (Peripheral Line) (COMPLETED) 10 mEq, IntraVENous, ONCE, 1 dose, On Thu09/29/23 at 2014, at 100 mL/hr 2026 (New Bag - Prov ider: Joyce Soria RN)2121 (Stopped - Provider: Joyce Soria RN) prochlorperazine (COMPAZINE) injection 10 mg (COMPLETED) 10 mg, IntraVENous, ONCE, 1 dose, On Thu09/29/23 at 2014, If administering IV push, administer at a maximum rate of 5 mg/minute. Patients should remain lying down following administration and be reassessed for relief of nausea and presence of hypotension. Patients should be assisted the first time they get up after administration. 2022 (Given - Provid er: Joyce Soria RN) sodium chloride 0.9 % bolus 1,000 mL (COMPLETED) 1,000 mL (17.6 mL/kg), IntraVENous, at 983.6 mL/hr, Administer over 61 Minutes, ONCE, On Thu09/29/23 at 1930, For 1 dose, For adult patients weighing > 55 kg (120 lbs.) and less than <50 years of age initiate 0.9NS at 500 mL/ hr. All bolus orders are to be given over 10 to 15 minutes 1935 (New Bag - Prov ider: Joyce Soria RN)2051 (Stopped - Provider: Joyce Soria RN) sodium chloride flush 0.9 % injection 3 mL(Linked Group 1) 3 mL, IntraVENous, EVERY 8 HOURS, First dose on Thu09/29/23 at 1930, Until Discontinued, Flush line with 3-5 mL 1929 (Due) Linked Groups Order Group 1: Saline lock IV (COMPLETED) Routine, CONTINUOUS, Starting on Thu09/29/23 at 1930, Until Specified And sodium chloride flush 0.9 % injection 3 mLJump to med 3 mL, IntraVENous, EVERY 8 HOURS, First dose on Thu09/29/23 at 1930, Until Discontinued
Flush line with 3-5 mL
Scheduled Medication Order 01/05/2024 01/06/2024 01/07/2024 HYDROmorphone HCl PF (DILAUDID) injection 1 mg (COMPLETED) 1 mg, IntraVENous, ONCE, 1 dose, On Eladia 01/07/24 at 1615, If oral and IV narcotics ordered, use oral first and only use IV if oral is ineffective or cannot take oral. Do Not give oral and IV within 1 hour of each other unless specifically ordered. 161 (Given - Provid er: Joyce Soria RN) ondansetron (ZOFRAN) injection 4 mg (COMPLETED) 4 mg, IntraVENous, ONCE, 1 dose, On [place]adia 01/07/24 at 1615 1616 (Given - Provid er: Joyce Soria RN) sodium chloride 0.9 % bolus 1,000 mL (COMPLETED) 1,000 mL (18.4 mL/kg), IntraVENous, at 983.6 mL/hr, Administer over 61 Minutes, ONCE, On Eladia 01/07/24 at 1445, For 1 dose, For adult patients weighing > 55 kg (120 lbs.) and less than <50 years of age initiate 0.9NS at 500 mL/ hr. All bolus orders are to be given over 10 to 15 minutes 1510 (New Bag - Prov ider: Joyce Soria RN)1611 (Due: Stopped - Provider: Joyce Soria RN)1711 (Stopped - Provider: Joyce Soria RN) Scheduled Medication Order 04/05/2024 04/06/2024 04/07/2024 HYDROmorphone HCl PF (DILAUDID) injection 1 mg (COMPLETED) 1 mg, IntraVENous, ONCE, 1 dose, On Eladia 04/07/24 at 1415 1528 (Given - Provid er: Joyce Soria RN) HYDROmorphone HCl PF (DILAUDID) injection 1 mg (COMPLETED) 1 mg, IntraVENous, ONCE, 1 dose, On [place]ia 04/07/24 at 1630 1623 (Given - Provid er: Ariana Murray) ondansetron (ZOFRAN) injection 4 mg (COMPLETED) 4 mg, IntraVENous, ONCE, 1 dose, On [place]ia 04/07/24 at 1415 1529 (Given - Provid er: Joyce Soria RN) sodium chloride 0.9 % bolus 1,000 mL (COMPLETED) 1,000 mL (17.6 mL/kg), IntraVENous, at 1,000 mL/hr, Administer over 1 Hours, ONCE, On Eladia 04/07/24 at 1415, For 1 dose 1528 (New Bag - Prov ider: Joyce Soria RN)1820 (Stopped - Provider: Ariana Murray) PRN Medication Order 04/05/2024 04/06/2024 04/07/2024 iopamidol (ISOVUE-370) 76 % injection 75 mL (COMPLETED) 75 mL, IntraVENous, IMG ONCE PRN, 1 dose, Starting on Eladia 04/07/24 at 1537, Until [place]adia 04/07/24 at 1543, Other 1543 (Given - Provid er: Miguel Angel Kellogg) FOR RECORDS PERTAINING TO PATIENTS WHO ARE [...] BE BASED ON THE PRIMARY CLINICAL RECORDS. [facility] provides no warranty or guarantee of the accuracy or completeness of information in this document.
[2024-05-03 02:20] LABS: Amylase 200 U/L (25-115); Anion Gap 11.9; BUN Creatinine Ratio 11.1; Carbon Dioxide 28.6 mmol/L (21.0-32.0); Chloride 105 mmol/L (98-107); Estimated GFR (African America >60 (>=60 mL/min/1.73m^2); Estimated GFR (Non-African Ame >60 (>=60 mL/min/1.73m^2); Glucose 110 mg/dL (74-106); Potassium 3.5 mmol/L (3.5-5.1); Sodium 142 mmol/L (136-145)
[2024-05-03 02:21] LABS: Alanine Aminotransferase 29 U/L (14-59); Albumin Level 3.4 g/dL (3.4-5.0); Alkaline Phosphatase 133 U/L (46-116); Aspartate Amino Transferase 23 U/L (15-37); Bilirubin Total 0.1 mg/dL (0.2-1.0); C Reactive Protein <0.50 mg/dL (<=0.50); Calcium 10.6 mg/dL (8.5-10.1); Globulin 3.3 g/dL; Total Protein 6.7 g/dL (6.4-8.2)
[2024-05-03] MEDS: DIPHENHYDRAMINE HCL 50 MG/ML VIAL 12.5 MG IVP (03:45)
[2024-05-03] MEDS: OXYCODONE HCL/ACETAMINOPHEN 5MG/325MG 2 TAB PO (04:43)
== END 2024-05-03 04:50 | disposition home or self-care (01) ==
PROVIDERS: Emergency Provider Emergency Medicine
DX: R10.84 Generalized abdominal pain (principal); K86.1 Other chronic pancreatitis; R11.2 Nausea with vomiting, unspecified; R19.7 Diarrhea, unspecified; Z90.49 Acquired absence of other specified parts of digestive tract
CPT/HCPCS: 36415; 74022; 80053; 82150; 83605; 83690; 85025; 86140; 96361; 96374; 96375; 96376; 99284; J1171; J1200; J2405; J3490

== ENCOUNTER 2024-05-17 12:20 | Emergency (ER) | payer OTHER, SELFPAY ==
[2024-05-17 12:26] VITALS: BP 141/83; PULSE 100; TEMP 36.9; O2SAT 100; BMI 22.9
--- NOTE | 2024-05-17 12:37 | ED_ITS ---
HPI HPI - General Adult General Chief complaint: Abdominal Pain Stated complaint: ABDOMINAL PAIN Time Seen by Provider: 05/17/24 12:23 Source: patient Mode of arrival: walk-in Limitations: no limitations History of Present Illness HPI narrative: 53-year-old female presents for abdominal pain. She points to the epigastric area and goes into the right upper quadrant and she has had it for 2 or 3 days. She has a history of chronic pancreatitis and states that this is a flareup. She sees a needle straightener at [facility] and at the [facility]. There has been no trauma or fever or hematemesis. The pain is moderate to severe and continuous. Related Data Home Medications ?Medication ?Instructions ?Recorded ?Confirmed No Known Home Medications 05/17/24 05/17/24 Allergies Allergy/AdvReac Type Severity Reaction Status Date / Time haloperidol (From Haldol) Allergy Intermediate Hives Verified 05/17/24 12:26 ibuprofen (From Motrin) Allergy Intermediate Hives Verified 05/17/24 12:26 tramadol Allergy Intermediate Hives Verified 05/17/24 12:26 Penicillins Allergy Unknown Anaphylaxis Verified 05/17/24 12:26 morphine Allergy swells Verified 05/17/24 12:26 prochlorperazine (From Allergy Hives Verified 05/17/24 12:26 Compazine) ketorolac (From Toradol) AdvReac Severe Hives Verified 05/17/24 12:26 fentanyl AdvReac Intermediate Hives Verified 05/17/24 12:26 Opioid HPI Opioid Management Most Recent Opioid Data: Last Pain Scale 8 01/24/24 18:41 01/24/24 Review of Systems ROS Narrative A ten point review of systems is negative except as noted above. PFSH PFSH Medical History (Updated 05/17/24 @ 14:07 by Barry Stinson MD) COPD (chronic obstructive pulmonary disease) ?J44.9 - Chronic obstructive pulmonary disease, unspecified (ICD-10) Chronic pancreatitis ?K86.1 - Other chronic pancreatitis (ICD-10) Smoker ?F17.200 - Nicotine dependence, unspecified, uncomplicated (ICD-10) History of gastrostomy tube placement Surgical History (Updated 04/03/23 @ 12:10 by Marni Farley) Hx of esophagogastroduodenoscopy ?Z98.890 - Other specified postprocedural states (ICD-10) H/O colonoscopy ?Z98.890 - Other specified postprocedural states (ICD-10) Hx of cholecystectomy ?Z90.49 - Acquired absence of other specified parts of digestive tract (ICD- 10) H/O: hysterectomy ?Z90.710 - Acquired absence of both cervix and uterus (ICD-10) Social History (Updated 04/03/23 @ 12:08 by Marni Farley) Smoking status: Current every day smoker Non-prescribed substance use: denies use Highest level of school completed/degree received: high school graduate Little interest or pleasure in doing things: not at all Feeling down, depressed, or hopeless: not at all Exam Narrative Exam Narrative: Nurses note and vital signs reviewed and patient is not hypoxic. General: The patient appears uncomfortable and is in no apparent respiratory distress. Skin: Warm, dry, no pallor noted. There is no rash noted. Head: Normocephalic, atraumatic Eye: Normal conjunctiva, no drainage Ears, Nose, Mouth, and Throat: oral mucosa is moist. Nares patent. Cardiovascular: Regular Rate and Rhythm Respiratory: Patient is in no distress, no accessory muscle use, lungs are clear to auscultation, no wheezing, rales or rhonchi Back: non-tender GI: Tenderness present in the epigastric area without mass or distention. No rebound or guarding. Musculoskeletal: The patient has no evidence of calf tenderness, no pitting edema, symmetrical pulses noted bilaterally Neurological: A&O, normal speech Psychiatric: Cooperative Constitutional Vital Signs, click to edit/add: Last Vital Signs Temp 98.5 F 05/17/24 12:26 Pulse 100 H 05/17/24 12:26 Resp 20 05/17/24 12:26 BP 141/83 05/17/24 12:26 Pulse Ox 100 05/17/24 12:26 O2 Del Method Room Air 05/17/24 12:26 Course Vital Signs Vital signs: Vital Signs Temperature 98.5 F 05/17/24 12:26 Pulse Rate 100 H 05/17/24 12:26 Respiratory Rate 20 05/17/24 12:26 Blood Pressure 141/83 05/17/24 12:26 Pulse Oximetry 100 05/17/24 12:26 Oxygen Delivery Method Room Air 05/17/24 12:26 Temperature 98.5 F 05/17/24 12:26 Pulse Rate 100 H 05/17/24 12:26 Respiratory Rate 20 05/17/24 12:26 Blood Pressure 141/83 05/17/24 12:26 Pulse Oximetry 100 05/17/24 12:26 Oxygen Delivery Method Room Air 05/17/24 12:26 Medical Decision Making MDM Narrative Medical decision making narrative: Her laboratory analysis is normal including the amylase and the lipase. She is feeling improved after IM Dilaudid and Zofran ODT and she is able to be discharged home. She will follow-up with her needle straightener. Treatment diagnosis and follow-up were discussed with the patient. Differential Diagnosis Differential Diagnosis: Abdominal pain, acute pancreatitis, hepatitis Lab Data Lab results reviewed: Yes I reviewed the patient's lab results Labs: Lab Results 05/17/24 Range/Units 13:35 WBC 11.1 H (4.0-11.0) 10^3/uL RBC 4.46 (4.20-5.40) 10^6/uL Hgb 14.9 (12.0-16.0) g/dL Hct 44.1 (36.0-48.0) % MCV 98.9 (81.0-99.0) fL MCH 33.4 (26.7-34.0) pg MCHC 33.8 (29.9-35.2) g/dL RDW 12.9 (11.0-15.0) % Plt Count 188 (150-450) 10^3/uL MPV 9.9 (9.5-13.5) fL Seg Neuts % (Manual) 72.0 (43.0-75.0) Lymphocytes % (Manual) 18.0 L (20.5-60.0) % Monocytes % (Manual) 10.0 (1.7-12.0) % Eosinophils % (Manual) 0.0 L (0.9-7.0) % Basophils % (Manual) 0.0 L (0.2-2.0) % Neutrophils # (Manual) 7.99 H (1.4-6.5) 10^3/uL Lymphocytes # (Manual) 1.99 (1.20-3.80) 10^3/uL Monocytes # (Manual) 1.11 H (0.30-0.80) 10^3/uL Eosinophils # (Manual) 0.00 (0.00-0.70) 10^3/uL Basophils # (Manual) 0.00 (0.00-0.10) 10^3/uL Sodium 138 (136-145) mmol/L Potassium 3.6 (3.5-5.1) mmol/L Chloride 102 (98-107) mmol/L Carbon Dioxide 27.0 (21.0-32.0) mmol/L Anion Gap 12.6 BUN 6.0 L (7.0-18.0) mg/dL Creatinine 0.90 (0.55-1.02) mg/dL Est GFR ( Amer) >60 (>=60 mL/min/1.73m^2) Est GFR (Non-Af Amer) >60 (>=60 mL/min/1.73m^2) BUN/Creatinine Ratio 6.7 Glucose 88 (74-106) mg/dL Calcium 10.2 H (8.5-10.1) mg/dL Total Bilirubin 0.1 L (0.2-1.0) mg/dL Direct Bilirubin <0.1 (0.0-0.2) mg/dL AST 25 (15-37) U/L ALT 20 (14-59) U/L Alkaline Phosphatase 136 H (46-116) U/L Total Protein 7.4 (6.4-8.2) g/dL Albumin 3.7 (3.4-5.0) g/dL Globulin 3.7 g/dL Albumin/Globulin Ratio 1.0 Amylase 102 (25-115) U/L Lipase 67.0 (16.0-77.0) U/L Discharge Plan Discharge Chief Complaint: Abdominal Pain Clinical Impression: Abdominal pain Patient Disposition: Home, Self-Care Time of Disposition Decision: 14:06 Condition: Good Mode of Transportation: Private Vehicle Prescriptions / Home Meds: No Action No Known Home Medications Print Language: French Instructions: Abdominal Pain (ED) Additional Instructions: Follow-up with your needle straightener Referrals: [facility] [Primary Care Provider] - 1 week
[2024-05-17 13:39] LABS: Hematocrit 44.1 % (36.0-48.0); Hemoglobin 14.9 g/dL (12.0-16.0); Mean Corpuscular HGB Conc 33.8 g/dL (29.9-35.2); Mean Corpuscular Hemoglobin 33.4 pg (26.7-34.0); Mean Corpuscular Volume 98.9 fL (81.0-99.0); Mean Platelet Volume 9.9 fL (9.5-13.5); Platelet Count 188 10^3/uL (150-450); Red Blood Count 4.46 10^6/uL (4.20-5.40); Red Cell Distribution Width 12.9 % (11.0-15.0); White Blood Count 11.1 10^3/uL (4.0-11.0)
[2024-05-17] MEDS: ONDANSETRON 4 MG RAPDIS TABLET SL (13:39)
[2024-05-17] MEDS: HYDROMORPHONE HCL 1 MG/ML CARTRIDGE IM (13:40)
[2024-05-17 13:54] LABS: Alanine Aminotransferase 20 U/L (14-59); Albumin Level 3.7 g/dL (3.4-5.0); Alkaline Phosphatase 136 U/L (46-116); Amylase 102 U/L (25-115); Anion Gap 12.6; Aspartate Amino Transferase 25 U/L (15-37); BUN Creatinine Ratio 6.7; Bilirubin Direct <0.1 mg/dL (0.0-0.2); Bilirubin Total 0.1 mg/dL (0.2-1.0); Calcium 10.2 mg/dL (8.5-10.1); Chloride 102 mmol/L (98-107); Estimated GFR (African America >60 (>=60 mL/min/1.73m^2); Estimated GFR (Non-African Ame >60 (>=60 mL/min/1.73m^2); Globulin 3.7 g/dL; Glucose 88 mg/dL (74-106); Potassium 3.6 mmol/L (3.5-5.1); Sodium 138 mmol/L (136-145); Total Protein 7.4 g/dL (6.4-8.2)
[2024-05-17 14:00] LABS: Lymphocytes Absolute Manual 1.99 10^3/uL (1.20-3.80); Segmented Neut Absolute Manual 7.99 10^3/uL (1.4-6.5)
[2024-05-17 14:01] LABS: Monocytes Absolute Manual 1.11 10^3/uL (0.30-0.80)
== END 2024-05-17 14:12 | disposition home or self-care (01) ==
PROVIDERS: Emergency Provider Emergency Medicine
DX: R10.9 Unspecified abdominal pain (principal); Z90.49 Acquired absence of other specified parts of digestive tract; Z90.710 Acquired absence of both cervix and uterus; F17.200 Nicotine dependence, unspecified, uncomplicated
CPT/HCPCS: 36415; 80048; 80076; 82150; 83690; 85007; 85027; 96372; 99284; J1171; Q0162

== ENCOUNTER 2024-06-10 04:50 | Emergency (ER) | payer OTHER, SELFPAY ==
[2024-06-10 04:54] VITALS: BP 135/94; PULSE 113; TEMP 36.7; O2SAT 98; BMI 22.9
--- OUTSIDE RECORDS SUMMARY | 2024-06-10 04:59 | XMS_ITS ---
Author Organization [place] Care Team Providers Care [employer] Name Role Phone SERVICES, [facility] STEPHANIE MAHMOOD Attending Unavailable SERVICES, [facility] TABITHA NEWELL Attending Unavailable SERVICES, [facility] AGUSTIN MICHAEL Attending Unavaila ble SERVICES, [facility] VIVIAN TRINH Attending Unavailable [facility], OTHER Primary Care Un available ELLA WILSON Attending Unavailabl e ELLA WILSON Referring Unavailabl e [facility], OTHER Primary Care Un available ELLA WILSON G Attending Unavailabl ELLA Licona Referring Unavailabl e TIMA ESCALERA Attending Unavailable Purpose PROBLEMS DATE TYPE CONDITION / CODE ATTENDING STATUS [facility] 03/18/2024 Unknown Idiopathic acute pancreatitis without necrosis or infection / K85.00(ICD-10) AGUSTIN MICHAEL [facility] 01/14/2024 Unknown Unspecified abdominal pain / R10.9(ICD-10) TABITHA NEWELL [facility] 01/14/2024 Unknown Other chronic pa in / G89.29(ICD-10) TABITHA NEWELL [facility] 12/29/2023 Unknown Other chronic pancreatitis / K86.1(ICD-10) [facility] 12/29/2023 Unknown Epigastric pain / R10.13(ICD-10) [facility] 12/29/2023 Unknown Abdominal Pain / FREETEXT(AOF) [facility] 12/29/2023 Unknown Abdominal Pain / UNK(Unknown) 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 Exam/Technique: CT Abdomen & Pelvis. Contiguous axial images are obtained of the abdomen and pelvis. Omnipaque 300 IV contrast utilized. Coronal and sagittal images are reconstructed and reviewed as well. Automatic exposure control was utilized. Comparison: 03/18/2024 and April 2023 Findings: Lung bases: Within normal limits Bony structures: Age compatible Abdomen: Small hiatal hernia. Stomach otherwise appears grossly normal. Prior cholecystectomy. Similar mild prominence distal common bile duct measuring up to 1 cm. Patent hepatic and portal veins. No focal hepatic lesion. Pancreas demonstrates mild ductal prominence similar to multiple prior exams. No evidence of acute inflammation. Stable left adrenal gland adenoma. Spleen and right adrenal gland are normal. Kidneys perfuse symmetrically. No hydronephrosis, solid cortical lesion or inflammatory focus. Nonobstructive bowel gas pattern. No free air. Small bowel is decompressed. Cecum resides in the pelvis. Normal appendix. Pelvis: No free fluid. Urinary bladder is decompressed without gross abnormality. Moderate atherosclerotic disease of normal size abdominal aorta. No retroperitoneal hematoma or adenopathy. IMPRESSION: * No acute or localizing pathology to correspond with the patient's symptoms. * Mildly prominent pancreatic and common bile ducts similar to multiple prior studies. All CT scans at this facility use dose modulation, iterative reconstruction, and/or weight based dosing when appropriate to reduce radiation dose to as low as reasonably achievable. Finalized by London Hurd DO on 05/31/2024 3:21 PM CBC AND AUTO DIFF Collected: 05/31/2024 2:50 PM Status: COMPLETED Source: [employer] REPOSITORY TYPE CODE TESTS RESULT OUT OF RANGE REFERENCE UNITS LAB WBC(LOINC) WBC COUNT 11.2 High 4.0-11.0 X10E9/L LAB RBC(LOINC) RBC COUNT 4.11 3.80-5.20 X10E12/L LAB HGB(LOINC) HEMOGLOBIN 14.0 11.7-15.5 g/dL LAB HCT(LOINC) HEMATOCRIT 40.2 35-47 % LAB MCV(LOINC) MCV 98 80-100 fL LAB MCH(LOINC) MCH 34.0 27-34 pg LAB MCHC(LOINC) MCHC 34.7 32-36 g/dL LAB RDW(LOINC) RDW 13.1 11.5-15.0 % LAB PLTC(LOINC) PLATELET COUNT 302 150-450 X10E9 /L LAB MPV(LOINC) MPV 7.8 7-12 fL LAB NEUT(LOINC) % NEUTROPHILS 64.2 % LAB LYMP(LOINC) % LYMPHOCYTES 24.0 % LAB MONO(LOINC) % MONOCYTES 9.6 % LAB EOS(LOINC) % EOSINOPHILS 0.9 % LAB BASO(LOINC) % BASOPHILS 1.3 % LAB ANEUT(LOINC) ABSOLUTE NEUTROPHIL 7.2 High 1.5-6.6 X10E9/L LAB ALYMP(LOINC) ABSOLUTE LYMPHOCYTE 2.7 1.0-3.5 X10E9/L LAB AMONO(LOINC) ABSOLUTE MONOCYTE 1.1 High 0-0.9 X10E9/L LAB AEOS(LOINC) ABSOLUTE EOSINOPHIL 0.1 0.0-0.4 X10E9/L LAB ABASO(LOINC) ABSOLUTE BASOPHIL 0.1 0.0-0.2 X10E9/L Performed By: #### CBCA, CMP , 3040-3 #### [facility] ([id number]) [address] [place] [address], [place] [address] COMPREHENSIVE METABOLIC PANEL Collected: 2024 2:50 PM Status: COMPLETED Source: [facility] REPOSITORY TYPE CODE TESTS RESULT OUT OF RANGE REFERENCE UNITS LAB NA(LOINC) SODIUM 136 134-146 mmol/L LAB K(LOINC) POTASSIUM 3.6 3.5-5.0 mmol/L LAB CL(LOINC) CHLORIDE 106 98-109 mmol/L LAB CO2(LOINC) CARBON DIOXIDE 23 22-32 mmol/L LAB AGAP(LOINC) ANION GAP 7 5-15 mmol/L LAB BUN(LOINC) BLOOD UREA NITROGEN 11 5-23 mg/dL LAB CRET(LOINC) CREATININE 0.60 0.40-1.00 mg/dL Result Comment: METHOD TRACE ABLE TO IDMS STANDARD LAB GLU(LOINC) GLUCOSE 101 High 65-99 mg/dL LAB CA(LOINC) CALCIUM 9.3 8.5-10.5 mg/dL LAB TP(LOINC) TOTAL PROTEIN 7.2 6.0-8.0 g/dL LAB ALB(LOINC) ALBUMIN 4.0 3.2-5.3 g/dL LAB ALK(LOINC) ALKALINE PHOSPHATASE 97 39-130 U/L LAB AST(LOINC) AST 19 0-41 U/L LAB ALT1(LOINC) ALT 12 0-31 U/L LAB TBIL(LOINC) BILIRUBIN,TOTAL 0.4 0.3-1.2 mg/d L LAB EGFR(LOINC) eGFR (CKD-EPI) NON-RACE DEPENDENT >90 >59 ml/min/1 .73sq.m Result Comment: Reported eGFR is based on the CKD-EPI 2020 equation that does not use a race coefficient. Performed By: #### CBCA, [facility] , 3040-3 #### [facility] ([id number]) [address] [place] [address] LIPASE Collected: 05/31/2024 2:50 PM S tatus: COMPLETED Source: [facility] REPOSITORY TYPE CODE TESTS RESULT OUT OF RANGE REFERENCE UNITS LAB LIPA(LOINC) LIPASE 104 High 17-40 U/L Performed By: #### CBCA, [facility] , 3040-3 #### [facility] ([id number]) [address] [place] [address] URINALYSIS, ROUTINE Collected: 04/07/19 5:25 PM Status: F Source: [facility] TYPE CODE TESTS RESULT OUT OF RANGE REFERENCE UNITS LAB UCO(LOINC) Color Yellow YEL LAB UTU(LOINC) Clarity, Urine Clear CLEAR LAB UGL(LOINC) Glucose,Semi- qnt,Ur NEGATIVE NEG mg/dL LAB UBI(LOINC) Bilirubin, SemiQt,Ur NEGATIVE NEG LAB UKE(LOINC) Ketones, Urine NEGATIVE NEG mg/dL LAB USG(LOINC) Spec. [place],Ur 1.010 1.010-1.020 LAB UHB(LOINC) Blood, Urine NEGATIVE NEG LAB UPH(LOINC) PH,Ur 5.5 5.0-9.0 LAB UPR(LOINC) Protein, Semi-qnt,Ur NEGATIVE NEG mg/dL LAB UUR(LOINC) Urobilinogen, Ur Normal 0.0-1.0 EU/dL LAB UNI(LOINC) Nitrite,Ur NEGATIVE NEG LAB ULE(LOINC) Leukocyte Esterase NEGATIVE NEG Performed By: #### UA #### [facility] [address] [place] [address] Grain Elevator Agent: Kye Jasso MD CT ABDOMEN PELVIS W IV CONTRAST Observed: 04/07/2024 4:16 PM Status: F Source: [facility] REPOSITORY EXAMINATION: CT OF THE ABDOMEN AND PELVIS [...] is no free fluid or pelvic mass. Peritoneum/Retroperitoneum: There is no pathologically enlarged lymphadenopathy present. Bones/Soft Tissues: No lytic or blastic osseous lesions are identified. IMPRESSION: 1. No acute intra-abdominal or pelvic abnormalities are noted. 2. Stable mild dilatation of the extrahepatic biliary tree and pancreatic duct. 3. Status post cholecystectomy. Interpreted by: Errol Tran MD Signed by: Errol Tran MD 04/07/24 Final result BASIC METABOLIC PROF Collected: 025 4:12 PM Status: F Source: [facility] REPOSITORY TYPE CODE TESTS RESULT OUT OF RANGE REFERENCE UNITS LAB NA(LOINC) NA (Sodium) 139 136-145 mmol/L LAB K(LOINC) K (Potassium) 4.0 3.7-5.3 mmol/L LAB CL(LOINC) Chloride 108 High 98-107 mmol/L LAB HCO(LOINC) CO2 23 20-31 mmol/L LAB GAP(LOINC) Anion Gap 8 Low 9-16 mmol/L LAB GLU(LOINC) Glucose 83 74-99 mg/dL LAB BUN(LOINC) BUN (Urea N) 10 6-20 mg/dL LAB CRE(LOINC) Creatinine 0.6 0.50-0.90 mg/dL LAB EGFR(LOINC) eGFR >90 >60 mL/min/1 .73m2 Result Comment: These results are not intended [...] following therapy that affects renal tubular secretion. LAB BUNCRE(LOINC) BUN/CRE Ratio 17 9-20 LAB CA(LOINC) Calcium 8.3 Low 8.6-10.4 mg/dL Performed By: #### LIP, BMP, LIVP #### [facility] [address] [place] [address] Grain Elevator Agent: Kye Jasso MD LIPASE Collected: 4:12 PM Status: F Source: [facility] REPOSITORY TYPE CODE TESTS RESULT OUT OF RANGE REFERENCE UNITS LAB LIP(LOINC) Lipase 266 High 13-60 U/L Performed By: #### LIP, BMP, LIVP #### [facility] [address] [place] [address] Grain Elevator Agent: Kye Jasso MD LIVER PROFILE Collected: 04/07/2024 4:12 PM Status: F Source: [facility] REPOSITORY TYPE CODE TESTS RESULT OUT OF RANGE REFERENCE UNITS LAB ALB(LOINC) Albumin 3.9 3.5-5.2 g/dL LAB ALP(LOINC) Alkaline Phos 119 High 35-104 U/L LAB ALT(LOINC) ALT 11 10-35 U/L LAB AST(LOINC) AST 30 10-35 U/L LAB TBIL(LOINC) Bilirubin, Total <0.2 0.00-1.20 mg/dL LAB DBILI(LOINC) Bilirubin, Direct <0.2 0.00-0.30 mg/dL LAB IBIL(LOINC) Bilirubin, Indirect Can not be calculated 0.0-1.0 mg/dL LAB TP(LOINC) Protein, Total 6.1 Low 6.6-8.7 g/dL LAB AG(LOINC) Albumin/Glob Ratio 1.7 1.0-2.5 Performed By: #### LIP, BMP, LIVP #### [facility] [address] [place] [address] Grain Elevator Agent: Kye Jasso MD CBC WITH DIFF Collected: 04/07/2024 3:15 PM Status: F Source: [facility] REPOSITORY TYPE CODE TESTS RESULT OUT OF RANGE REFERENCE UNITS LAB WBC(LOINC) WBC Count 9.3 3.5-11.3 k/uL LAB RBC(LOINC) RBC Count 4.13 3.95-5.11 m/uL LAB HGB(LOINC) Hemoglobin 14.0 11.9-15.1 g/dL LAB HCT(LOINC) Hematocrit 40.1 36.3-47.1 % LAB MCV(LOINC) MCV 97.1 82.6-102.9 fL LAB MCH(LOINC) MCH 33.9 High 25.2-33.5 pg LAB MCHC(LOINC) MCHC 34.9 High 28.4-34.8 g/dL LAB RDW(LOINC) RDW 13.1 11.8-14.4 % LAB PLT(LOINC) Platelet Count 267 138-453 k/uL LAB MPVX(LOINC) MPV 10.6 8.1-13.5 fL LAB NRBCS(LOINC) NRBC Automated 0.0 0.0 per 100 WBC LAB SEG(LOINC) Neutrophil (Seg) 64 36-65 % LAB LYM(LOINC) Lymphocyte 26 24-43 % LAB MON(LOINC) Monocyte 8 3-12 % LAB EO(LOINC) Eosinophil 1 1-4 % LAB BASO(LOINC) Basophil 1 0-2 % LAB IGRAN(LOINC) Immature Granulocyte 0 0 % LAB ASEG(LOINC) Abs.Neutrophil (Seg) 5.87 1.50-8.10 k/uL LAB ALYM(LOINC) Abs. Lymph 2.39 1.10-3.70 k/uL LAB AMONO(LOINC) Abs. Monocyte 0.76 0.10-1.20 k/u L LAB AEO(LOINC) Abs. Eosinophil 0.13 0.00-0.44 k/u L LAB ABASO(LOINC) Abs. Basophil 0.08 0.00-0.20 k/u L LAB AIGRAN(LOINC) Abs.Imm.Granulo cyte 0.03 0.00-0.30 k/uL Performed By: #### JESUS ALBERTO WATSON #### [facility] [address] [place], [place] [id number] Grain Elevator Agent: Kye Jasso MD SPECIMEN REJECTION Collected: 04/07/2024 3:15 PM Sta tus: F Source: [facility] TYPE CODE TESTS RESULT OUT OF RANGE REFERENCE UNITS LAB SOURC([facility]) Source of sample .BLOOD LAB ORDER([facility]) Test ordered LIP,LIVP, BMP LAB REASON([facility]) Reason for rejection Unable to perform testing: Specimen hemolyzed. Performed By: #### JESUS ALBERTO WATSON #### [facility] [address] [place] [address] Grain Elevator Agent: Kye Jasso MD CT ABDOMEN AND PELVIS W CONT Observed: 03/18/2024 3:21 PM Status: COMPLETED Source: [employer] CT ABDOMEN AND PELVIS W CONT CT [...] Amy Cano MD on 03/18/2024 3:38 PM CBC AND AUTO DIFF Collected: 03/18/2024 1:05 PM Status: COMPLETED Source: [facility] REPOSITORY TYPE CODE TESTS RESULT OUT OF RANGE REFERENCE UNITS LAB WBC(LOINC) WBC COUNT 10.7 4.0-11.0 X10E9/L LAB RBC(LOINC) RBC COUNT 4.92 3.80-5.20 X10E12/L LAB HGB(LOINC) HEMOGLOBIN 16.5 High 11.7-15.5 g/dL LAB HCT(LOINC) HEMATOCRIT 48.7 High 35-47 % LAB MCV(LOINC) MCV 99 80-100 fL LAB MCH(LOINC) MCH 33.5 27-34 pg LAB MCHC(LOINC) MCHC 33.9 32-36 g/dL LAB RDW(LOINC) RDW 13.5 11.5-15.0 % LAB PLTC(LOINC) PLATELET COUNT 304 150-450 X10E9 /L LAB MPV(LOINC) MPV 8.1 7-12 fL LAB NEUT(LOINC) % NEUTROPHILS 72.3 % LAB LYMP(LOINC) % LYMPHOCYTES 19.0 % LAB MONO(LOINC) % MONOCYTES 7.4 % LAB EOS(LOINC) % EOSINOPHILS 0.5 % LAB BASO(LOINC) % BASOPHILS 0.8 % LAB ANEUT(LOINC) ABSOLUTE NEUTROPHIL 7.7 High 1.5-6.6 X10E9/L LAB ALYMP(LOINC) ABSOLUTE LYMPHOCYTE 2.0 1.0-3.5 X10E9/L LAB AMONO(LOINC) ABSOLUTE MONOCYTE 0.8 0-0.9 X10E9/L LAB AEOS(LOINC) ABSOLUTE EOSINOPHIL 0.1 0.0-0.4 X10E9/L LAB ABASO(LOINC) ABSOLUTE BASOPHIL 0.1 0.0-0.2 X10E9/L Performed By: #### CBCA, CMP , 3040-3 #### [facility] ([id number]) [address] [place] [address], [place] [address] COMPREHENSIVE METABOLIC PANEL Collected: 2024 1:05 PM Status: COMPLETED Source: [facility] REPOSITORY TYPE CODE TESTS RESULT OUT OF RANGE REFERENCE UNITS LAB NA(LOINC) SODIUM 140 134-146 mmol/L LAB K(LOINC) POTASSIUM 4.5 3.5-5.0 mmol/L LAB CL(LOINC) CHLORIDE 104 98-109 mmol/L LAB CO2(LOINC) CARBON DIOXIDE 27 22-32 mmol/L LAB AGAP(LOINC) ANION GAP 9 5-15 mmol/L LAB BUN(LOINC) BLOOD UREA NITROGEN 11 5-23 mg/dL LAB CRET(LOINC) CREATININE 0.78 0.40-1.00 mg/dL Result Comment: METHOD TRACE ABLE TO IDMS STANDARD LAB GLU(LOINC) GLUCOSE 103 High 65-99 mg/dL LAB CA(LOINC) CALCIUM 10.9 High 8.5-10.5 mg/dL LAB TP(LOINC) TOTAL PROTEIN 8.2 High 6.0-8.0 g/dL LAB ALB(LOINC) ALBUMIN 4.7 3.2-5.3 g/dL LAB ALK(LOINC) ALKALINE PHOSPHATASE 153 High 39-130 U/L LAB AST(LOINC) AST 26 0-41 U/L LAB ALT1(LOINC) ALT 18 0-31 U/L LAB TBIL(LOINC) BILIRUBIN,TOTAL 0.8 0.3-1.2 mg/d L LAB EGFR(LOINC) eGFR (CKD-EPI) NON-RACE DEPENDENT >90 >59 ml/min/1 .73sq.m Result Comment: Reported eGFR is based on the CKD-EPI 2020 equation that does not use a race coefficient. Performed By: #### BONNIE MOLINA , 3040-3 #### [facility] ([id number]) [address] [place] [address] LIPASE Collected: 03/18/2024 1:05 PM S tatus: COMPLETED Source: [facility] REPOSITORY TYPE CODE TESTS RESULT OUT OF RANGE REFERENCE UNITS LAB LIPA(LOINC) LIPASE 73 High 17-40 U/L Performed By: #### TRACY CMP , 3040-3 #### [facility] ([id number]) [address] [place] [address] URN MACROSCOPIC JERE Collected: 01/14/2024 4:45 PM Status: COMPLETED Source: [facility] REPOSITORY TYPE CODE TESTS RESULT OUT OF RANGE REFERENCE UNITS LAB SPGRN(LOINC) SPECIFIC GRAVITY JERE >=1.030 1.003-1.035 LAB LESTN(LOINC) LEUKOCYTE ESTERASE JERE Negative (qualifier value) NEG LAB NITN(LOINC) NITRITE JERE Negative (qualifier value) NEG LAB PHURN(LOINC) PH JERE 5.5 5.0-8.5 LAB PRURN(LOINC) PROTEIN JERE Negative (qualifier value) NEG mg/dL LAB GLURN(LOINC) GLUCOSE JERE Negative (qualifier value) NEG mg/dL LAB KETN(LOINC) KETONES JERE Negative (qualifier value) NEG mg/dL LAB UROBN(LOINC) UROBILINOGEN JERE 0.2 <1.1 eu /dL LAB BILEN(LOINC) BILIRUBIN JERE Negative (qualifier value) NEG LAB BLURN(LOINC) BLOOD/HGB JERE Negative (qualifier value) NEG Performed By: #### NUM #### [facility] ([id number]) [address] [place] [address] ABDOMEN AND PELVIS W CONT Observed: 01/14/2024 4:44 PM Status: COMPLETED Source: [facility] REPOSITORY CT ABDOMEN AND PELVIS W CONT CLINICAL [...] in caliber. Within the posterior pelvis. Nondistended fluid- filled loops of small bowel present suggesting ileus. [...] Alberto Rodgers MD on 01/14/2024 5:01 PM CBC AND AUTO DIFF Collected: 01/14/2024 4:15 PM Status: COMPLETED Source: [facility]POSITORY TYPE CODE TESTS RESULT OUT OF RANGE REFERENCE UNITS LAB WBC(LOINC) WBC COUNT 10.7 4.0-11.0 X10E9/L LAB RBC(LOINC) RBC COUNT 4.29 3.80-5.20 X10E12/L LAB HGB(LOINC) HEMOGLOBIN 14.5 11.7-15.5 g/dL LAB HCT(LOINC) HEMATOCRIT 42.2 35-47 % LAB MCV(LOINC) MCV 98 80-100 fL LAB MCH(LOINC) MCH 33.8 27-34 pg LAB MCHC(LOINC) MCHC 34.3 32-36 g/dL LAB RDW(LOINC) RDW 12.9 11.5-15.0 % LAB PLTC(LOINC) PLATELET COUNT 259 150-450 X10E9 /L LAB MPV(LOINC) MPV 8.2 7-12 fL LAB NEUT(LOINC) % NEUTROPHILS 63.6 % LAB LYMP(LOINC) % LYMPHOCYTES 26.2 % LAB MONO(LOINC) % MONOCYTES 8.2 % LAB EOS(LOINC) % EOSINOPHILS 1.2 % LAB BASO(LOINC) % BASOPHILS 0.8 % LAB ANEUT(LOINC) ABSOLUTE NEUTROPHIL 6.8 High 1.5-6.6 X10E9/L LAB ALYMP(LOINC) ABSOLUTE LYMPHOCYTE 2.8 1.0-3.5 X10E9/L LAB AMONO(LOINC) ABSOLUTE MONOCYTE 0.9 0-0.9 X10E9/L LAB AEOS(LOINC) ABSOLUTE EOSINOPHIL 0.1 0.0-0.4 X10E9/L LAB ABASO(LOINC) ABSOLUTE BASOPHIL 0.1 0.0-0.2 X10E9/L Performed By: #### CBCA, CMP , 3040-3, 79437-1 #### [facility] ([id number]) [address] [place] [address] COMPREHENSIVE METABOLIC PANEL Collected: 2023 4:15 PM Status: COMPLETED Source: [facility]POS[facility] TYPE CODE TESTS RESULT OUT OF RANGE REFERENCE UNITS LAB NA(LOINC) SODIUM 137 134-146 mmol/L LAB K(LOINC) POTASSIUM 3.6 3.5-5.0 mmol/L LAB CL(LOINC) CHLORIDE 105 98-109 mmol/L LAB CO2(LOINC) CARBON DIOXIDE 22 22-32 mmol/L LAB AGAP(LOINC) ANION GAP 10 5-15 mmol/L LAB BUN(LOINC) BLOOD UREA NITROGEN 7 5-23 mg/dL LAB CRET(LOINC) CREATININE 0.74 0.40-1.00 mg/dL Result Comment: METHOD TRACE ABLE TO IDMS STANDARD LAB GLU(LOINC) GLUCOSE 93 65-99 mg/dL LAB CA(LOINC) CALCIUM 9.6 8.5-10.5 mg/dL LAB TP(LOINC) TOTAL PROTEIN 7.3 6.0-8.0 g/dL LAB ALB(LOINC) ALBUMIN 4.2 3.2-5.3 g/dL LAB ALK(LOINC) ALKALINE PHOSPHATASE 136 High 39-130 U/L LAB AST(LOINC) AST 21 0-41 U/L LAB ALT1(LOINC) ALT 18 0-31 U/L LAB TBIL(LOINC) BILIRUBIN,TOTAL 0.5 0.3-1.2 mg/d L LAB EGFR(LOINC) eGFR (CKD-EPI) NON-RACE DEPENDENT >90 >59 ml/min/1 .73sq.m Result Comment: Reported eGFR is based on the CKD-EPI 2020 equation that does not use a race coefficient. Performed By: #### BONNIE MOLINA , 3040-3, 14827-3 #### [facility] ([id number]) [address] [place] [address] LIPASE Collected: 01/14/2024 4:15 PM S tatus: COMPLETED Source: [facility]POS[facility] TYPE CODE TESTS RESULT OUT OF RANGE REFERENCE UNITS LAB LIPA(LOINC) LIPASE 72 High 17-40 U/L Performed By: #### TRACY, CMP , 3040-3, 43704-4 #### [facility] ([id number]) [address] [place] [address] MAGNESIUM Collected: 01/14/2024 4:15 PM S tatus: COMPLETED Source: [facility] TYPE CODE TESTS RESULT OUT OF RANGE REFERENCE UNITS LAB MG(LOINC) MAGNESIUM 2.2 1.8-2.6 mg/dL Performed By: #### CBCA, CMP , 3040-3, 23990-9 #### [facility] ([id number]) [address] [place] [address] URINALYSIS W/ MICRO Collected: 01/07/2024 4:[address] [facility]: F Source: [facility] REPOSITORY TYPE CODE TESTS RESULT OUT OF RANGE REFERENCE UNITS LAB UCO(LOINC) Color Yellow YEL LAB UTU(LOINC) Clarity, Urine Clear CLEAR LAB UGL(LOINC) Glucose,Semi-q nt,Ur NEGATIVE NEG mg/dL LAB UBI(LOINC) Bilirubin, SemiQt,Ur NEGATIVE NEG LAB UKE(LOINC) Ketones, Urine NEGATIVE NEG mg/dL LAB USG(LOINC) Spec. [place],Ur 1.010 1.010-1.020 LAB UHB(LOINC) Blood, Urine NEGATIVE NEG LAB UPH(LOINC) PH,Ur 6.0 5.0-9.0 LAB UPR(LOINC) Protein, Semi-qnt,Ur NEGATIVE NEG mg/dL LAB UUR(LOINC) Urobilinogen,U r Normal 0.0-1.0 EU/dL LAB UNI(LOINC) Nitrite,Ur NEGATIVE NEG LAB ULE(LOINC) Leukocyte Esterase NEGATIVE NEG LAB UWBC(LOINC) Urine WBC's 0 TO 2 0-5 /HPF LAB URBC(LOINC) Urine RBC's None 0-2 /HPF LAB EPITH(LOINC) Epithelial cells 0 TO 2 0-25 /HPF Performed By: #### UAMIC ### # [facility] [address] [place] [address] Grain Elevator Agent: Kye Jasso MD CBC WITH DIFF Collected: 01/07/2024 2:56 PM Status: F Source: [facility]POS[facility] TYPE CODE TESTS RESULT OUT OF RANGE REFERENCE UNITS LAB WBC(LOINC) WBC Count 9.9 3.5-11.3 k/uL LAB RBC(LOINC) RBC Count 4.71 3.95-5.11 m/uL LAB HGB(LOINC) Hemoglobin 15.9 High 11.9-15.1 g/dL LAB HCT(LOINC) Hematocrit 46.3 36.3-47.1 % LAB MCV(LOINC) MCV 98.3 82.6-102.9 fL LAB MCH(LOINC) MCH 33.8 High 25.2-33.5 pg LAB MCHC(LOINC) MCHC 34.3 28.4-34.8 g/dL LAB RDW(LOINC) RDW 12.2 11.8-14.4 % LAB PLT(LOINC) Platelet Count 277 138-453 k/uL LAB MPVX(LOINC) MPV 9.7 8.1-13.5 fL LAB NRBCS(LOINC) NRBC Automated 0.0 0.0 per 100 WBC LAB SEG(LOINC) Neutrophil (Seg) 61 36-65 % LAB LYM(LOINC) Lymphocyte 28 24-43 % LAB MON(LOINC) Monocyte 9 3-12 % LAB EO(LOINC) Eosinophil 1 1-4 % LAB BASO(LOINC) Basophil 1 0-2 % LAB IGRAN(LOINC) Immature Granulocyte 0 0 % LAB ASEG(LOINC) Abs.Neutrophil (Seg) 6.06 1.50-8.10 k/uL LAB ALYM(LOINC) Abs. Lymph 2.73 1.10-3.70 k/uL LAB AMONO(LOINC) Abs. Monocyte 0.88 0.10-1.20 k/u L LAB AEO(LOINC) Abs. Eosinophil 0.10 0.00-0.44 k/u L LAB ABASO(LOINC) Abs. Basophil 0.09 0.00-0.20 k/u L LAB AIGRAN(LOINC) Abs.Imm.Granulo cyte <0.03 0.00-0.30 k/uL Performed By: #### CP, LIP, CDP #### [facility] [address] [place] [address] [employer]rain Elevator Agent: Kye Jasso MD COMP METABOLIC PROF Collected: 01/07/20 24 2:56 PM Status: F Source: [facility] REPOSITORY TYPE CODE TESTS RESULT OUT OF RANGE REFERENCE UNITS LAB NA(LOINC) NA (Sodium) 137 136-145 mmol/L LAB K(LOINC) K (Potassium) 4.6 3.7-5.3 mmol/L Result Comment: Specimen hem olysis has exceeded the interference as defined by Joycelyn. Value may be falsely increased. Suggest recollection if clinically indicated. LAB CL(LOINC) Chloride 103 98-107 mmol/L LAB HCO(LOINC) CO2 22 20-31 mmol/L LAB GAP(LOINC) Anion Gap 12 9-16 mmol/L LAB GLU(LOINC) Glucose 96 74-99 mg/dL LAB BUN(LOINC) BUN (Urea N) 7 6-20 mg/dL LAB CRE(LOINC) Creatinine 0.8 0.50-0.90 mg/dL LAB EGFR(LOINC) eGFR >90 >60 mL/min/1 .73m2 Result Comment: These results are not intended [...] following therapy that affects renal tubular secretion. LAB BUNCRE(LOINC) BUN/CRE Ratio 9 9-20 LAB CA(LOINC) Calcium 9.8 8.6-10.4 mg/dL LAB TP(LOINC) Protein, Total 7.0 6.6-8.7 g/dL LAB ALB(LOINC) Albumin 4.3 3.5-5.2 g/dL LAB AG(LOINC) Albumin/Glob Ratio 1.6 1.0-2.5 LAB TBIL(LOINC) Bilirubin, Total <0.2 0.00-1.20 mg/dL LAB ALP(LOINC) Alkaline Phos 145 High 35-104 U/L LAB ALT(LOINC) ALT 11 10-35 U/L LAB AST(LOINC) AST 25 10-35 U/L Result Comment: Specimen hem olysis has exceeded the interference as defined by Joycelyn. Value may be falsely increased. Suggest recollection if clinically indicated. Performed By: #### CP, LIP, CDP #### [facility] [address] [place] [address] Grain Elevator Agent: Kye Jasso MD LIPASE Collected: 2:56 PM Status: F Source: [facility] TYPE CODE TESTS RESULT OUT OF RANGE REFERENCE UNITS LAB LIP(LOINC) Lipase 144 High 13-60 U/L Performed By: #### CP, LIP, CDP #### [facility] [address] [place], [place] [id number] [employer] Elevator Agent: Kye Jasso MD LACTIC ACID Collected: 4 2:56 PM Status: F Source: [facility] TYPE CODE TESTS RESULT OUT OF RANGE REFERENCE UNITS LAB LAC(LOINC) Lactic Acid 1.3 0.5-2.2 mmol/L Performed By: #### LACTIC ## ## [facility] [address] [place] [address] [place] [address] Grain Elevator Agent: Kye Jasso MD 1 HOUR TROP I, HIGH SENSITIVITY Collected: 12/08 6:32 AM Status: COMPLETED Source: [employer] TYPE CODE TESTS RESULT OUT OF RANGE REFERENCE UNITS LAB TNIHS1(LOINC) 1 HOUR TROP I, HIGH SENSITIVITY 2 <16 ng/L Performed By: #### [id number] # ### [facility] ([id number]) [address] [place] [address], [place] [address] CT ABDOMEN AND PELVIS WO CONT Observed: 12/29/2023 6:15 AM Status: COMPLETED Source: [employer] CT ABDOMEN AND PELVIS WO CON T CLINICAL INFORMATION: Abdominal pain, acute, nonlocalized. Epigastric [...] Agustin Presley MD on 12/29/2023 6:27 AM CBC AND AUTO DIFF Collected: 12/29/2023 5:30 AM Status: COMPLETED Source: [employer] REPOSITORY TYPE CODE TESTS RESULT OUT OF RANGE REFERENCE UNITS LAB WBC(LOINC) WBC COUNT 7.7 4.0-11.0 X10E9/L LAB RBC(LOINC) RBC COUNT 4.19 3.80-5.20 X10E12/L LAB HGB(LOINC) HEMOGLOBIN 14.3 11.7-15.5 g/dL LAB HCT(LOINC) HEMATOCRIT 41.8 35-47 % LAB MCV(LOINC) MCV 100 80-100 fL LAB MCH(LOINC) MCH 34.0 27-34 pg LAB MCHC(LOINC) MCHC 34.1 32-36 g/dL LAB RDW(LOINC) RDW 13.2 11.5-15.0 % LAB PLTC(LOINC) PLATELET COUNT 266 150-450 X10E9 /L LAB MPV(LOINC) MPV 8.2 7-12 fL LAB NEUT(LOINC) % NEUTROPHILS 51.3 % LAB LYMP(LOINC) % LYMPHOCYTES 33.1 % LAB MONO(LOINC) % MONOCYTES 12.0 % LAB EOS(LOINC) % EOSINOPHILS 2.3 % LAB BASO(LOINC) % BASOPHILS 1.3 % LAB ANEUT(LOINC) ABSOLUTE NEUTROPHIL 3.9 1.5-6.6 X10E9/L LAB ALYMP(LOINC) ABSOLUTE LYMPHOCYTE 2.5 1.0-3.5 X10E9/L LAB AMONO(LOINC) ABSOLUTE MONOCYTE 0.9 0-0.9 X10E9/L LAB AEOS(LOINC) ABSOLUTE EOSINOPHIL 0.2 0.0-0.4 X10E9/L LAB ABASO(LOINC) ABSOLUTE BASOPHIL 0.1 0.0-0.2 X10E9/L Performed By: #### FRANNIE MOLINA , 41164-7, LIVR, 82888-0, 01794-3, 5643-2, 3040-3 #### [facility] ([id number]) [address] [place] [address] BASIC METABOLIC PANL Collected: 12/29/2023 5:30 AM Status: COMPLETED Source: [facility] REPOSITORY TYPE CODE TESTS RESULT OUT OF RANGE REFERENCE UNITS LAB NA(LOINC) SODIUM 138 134-146 mmol/L LAB K(LOINC) POTASSIUM 4.2 3.5-5.0 mmol/L Result Comment: SPECIMEN HEM OLYZED, RESULTS INCREASED LAB CL(LOINC) CHLORIDE 106 98-109 mmol/L LAB CO2(LOINC) CARBON DIOXIDE 24 22-32 mmol/L LAB AGAP(LOINC) ANION GAP 8 5-15 mmol/L LAB BUN(LOINC) BLOOD UREA NITROGEN 12 5-23 mg/dL LAB CRET(LOINC) CREATININE 0.88 0.40-1.00 mg/dL Result Comment: METHOD TRACE ABLE TO IDMS STANDARD LAB GLU(LOINC) GLUCOSE 82 65-99 mg/dL LAB CA(LOINC) CALCIUM 9.7 8.5-10.5 mg/dL LAB EGFR(LOINC) eGFR (CKD-EPI) NON-RACE DEPENDENT 78 >59 ml/min/1. 73sq.m Result Comment: Reported eGFR is based on the CKD-EPI 2020 equation that does not use a race coefficient. Performed By: #### FRANNIE MOLINA , 74727-0, LIVR, 46920-8, 15046-3, 5643-2, 3040-3 #### [facility] ([id number]) [address] [place] [address] 74205 D DIMER Collected: 5:30 AM Status: COMPLETED Source: [facility] REPOSITORY TYPE CODE TESTS RESULT OUT OF RANGE REFERENCE UNITS LAB DDMR(LOINC) D DIMER <150 <255 ng/mL DDU Result Comment: Results <255 ng/mL DDU: The presence of a VTE can safely be excluded with a negative D-Dimer result and Wells score. A negative result doesn't exclude the possibility of DIC. The test be repeated along with other diagnostic tests if the patient's symptoms persist or worsen. [email or web address] Performed By: #### TRACY, FRANNIE , 94054-2, LIVR, 90696-0, 41609-9, 5643-2, 3040-3 #### [facility] ([id number]) [address] [place] [address] 01856 LIVER PANEL Collected: 12/29/2023 5:30 AM S tatus: COMPLETED Source: [facility] REPOSITORY TYPE CODE TESTS RESULT OUT OF RANGE REFERENCE UNITS LAB ALK2(LOINC) ALKALINE PHOSPHATASE 111 39-130 U/L LAB AST2(LOINC) AST 23 0-41 U/L LAB ALT(LOINC) ALT 11 0-31 U/L LAB TBIL2(LOINC) BILIRUBIN, TOTAL 0.5 0.3-1.2 mg/dL Result Comment: RESULTS QUES TIONABLE DUE TO HEMOLYSIS LAB DBIL(LOINC) BILIRUBIN,DIREC T 0.3 0.0-0.4 mg/dL LAB ALB2(LOINC) ALBUMIN 3.9 3.2-5.3 g/dL LAB TP2(LOINC) TOTAL PROTEIN 6.9 6.0-8.0 g/dL Performed By: #### TRACY, FRANNIE , 71710-0, LIVR, 50851-7, 12491-3, 5643-2, 3040-3 #### [facility] ([id number]) [address] [place] [address] 94520 MAGNESIUM Collected: 12/29/2023 5:30 AM S tatus: COMPLETED Source: [employer] [facility] [employer] [facility] [place] REPOSITORY TYPE CODE TESTS RESULT OUT OF RANGE REFERENCE UNITS LAB MG(LOINC) MAGNESIUM 2.2 1.8-2.6 mg/dL Performed By: #### BRIEA, FRANNIE , 78641-1, LIVR, 70014-0, 16675-6, 5643-2, 3040-3 #### [facility] ([id number]) [address] [place] [address] 88198 TROPONIN I, HIGH SENSITIVITY Collected: 5:30 AM Status: COMPLETED Source: [employer] [facility] [employer] [facility] [place] REPOSITORY TYPE CODE TESTS RESULT OUT OF RANGE REFERENCE UNITS LAB TNIHS(LOINC) TROPONIN I, HIGH SENSITIVITY 2 <16 ng/L Performed By: #### CBCA, BMP , 30357-3, LIVR, 59097-8, 05686-5, 5643-2, 3040-3 #### [facility] ([id number]) [address] [place] [address] 32731 ETHANOL Collected: 12/29/2023 5:30 AM S tatus: COMPLETED Source: [facility] REPOSITORY TYPE CODE TESTS RESULT OUT OF RANGE REFERENCE UNITS LAB ALCO(LOINC) ETHANOL <0.01 0.00-0.08 g/dL Result Comment: This report is intended for use in clinical monitoring or management of patients. Performed By: #### TRACY, BMP , 50935-2, LIVR, 87669-8, 29119-6, 5643-2, 3040-3 #### [facility] ([id number]) [address] [place] [address] 43449 LIPASE Collected: 12/29/2023 5:30 AM S tatus: COMPLETED Source: [employer] [facility] [employer] [facility] [place] REPOSITORY TYPE CODE TESTS RESULT OUT OF RANGE REFERENCE UNITS LAB LIPA(LOINC) LIPASE 55 High 17-40 U/L Performed By: #### BRIEA, BMP , 83270-4, LIVR, 92826-3, 86564-0, 5643-2, 3040-3 #### [facility] ([id number]) [address] [place] [address] 87253 UA W/REFLEX CULTURE Collected: 09/29/2023 7:[address] atus: F Source: [facility] REPOSITORY TYPE CODE TESTS RESULT OUT OF RANGE REFERENCE UNITS LAB UCO(LOINC) Color Yellow YEL LAB UTU(LOINC) Clarity, Urine Clear CLEAR LAB UGL(LOINC) Glucose,Semi-q nt,Ur NEGATIVE NEG mg/dL LAB UBI(INC) Bilirubin, SemiQt,Ur NEGATIVE NEG LAB UKE(INC) Ketones, Urine NEGATIVE NEG mg/dL [facility] Spec. [place],Ur >1.030 High 1.010-1.020 LAB UHB(LOINC) Blood, Urine NEGATIVE NEG LAB UPH(LOINC) PH,Ur 6.0 5.0-9.0 LAB UPR(LOINC) Protein, Semi-qnt,Ur NEGATIVE NEG mg/dL [facility] Urobilinogen,U r Normal 0.0-1.0 EU/dL LAB UNI(LOINC) Nitrite,Ur NEGATIVE NEG LAB ULE([facility]) Leukocyte Esterase NEGATIVE NEG Performed By: #### AYALA U AX #### [facility] Lab [address] [place] [address] [place] [address] Grain Elevator Agent: Kye Jasso MD URINALYSIS,MICRO Collected: 7:37 PM Status: F Source: [facility] REPOSITORY TYPE CODE TESTS RESULT OUT OF RANGE REFERENCE UNITS LAB UWBC([facility]) Urine WBC's 0 TO 2 0-5 /HPF LAB URBC([facility]) Urine RBC's 0 TO 2 0-2 /HPF LAB EPITH(LOINC) Epithelial cells 2 TO 5 0-25 /HPF LAB BACT([facility]) Bacteria TRACE Abnormal NONE Performed By: #### AYALA U AX #### [address] [place] [address] Grain Elevator Agent: Kye Jasso MD CBC WITH DIFF Collected: 09/29/2023 7:30 PM Status: F Source: [facility] REPOSITORY TYPE CODE TESTS RESULT OUT OF RANGE REFERENCE UNITS LAB WBC(LOINC) WBC Count 11.3 3.5-11.3 k/uL LAB RBC(LOINC) RBC Count 4.20 3.95-5.11 m/uL LAB HGB(LOINC) Hemoglobin 14.2 11.9-15.1 g/dL LAB HCT(LOINC) Hematocrit 40.3 36.3-47.1 % LAB MCV(LOINC) MCV 96.0 82.6-102.9 fL LAB MCH(LOINC) MCH 33.8 High 25.2-33.5 pg LAB MCHC(LOINC) MCHC 35.2 High 28.4-34.8 g/dL LAB RDW(LOINC) RDW 12.9 11.8-14.4 % LAB PLT(LOINC) Platelet Count 193 138-453 k/uL LAB MPVX(LOINC) MPV 9.4 8.1-13.5 fL LAB NRBCS(LOINC) NRBC Automated 0.0 0.0 per 100 WBC LAB SEG(LOINC) Neutrophil (Seg) 73 High 36-65 % LAB LYM(LOINC) Lymphocyte 19 Low 24-43 % LAB MON(LOINC) Monocyte 8 3-12 % LAB EO(LOINC) Eosinophil 0 Low 1-4 % LAB BASO(LOINC) Basophil 0 0-2 % LAB IGRAN(LOINC) Immature Granulocyte 0 0 % LAB ASEG(LOINC) Abs.Neutrophil (Seg) 8.10 1.50-8.10 k/uL LAB ALYM(LOINC) Abs. Lymph 2.18 1.10-3.70 k/uL LAB AMONO(LOINC) Abs. Monocyte 0.94 0.10-1.20 k/u L LAB AEO(LOINC) Abs. Eosinophil 0.05 0.00-0.44 k/u L LAB ABASO(LOINC) Abs. Basophil 0.05 0.00-0.20 k/u L LAB AIGRAN(LOINC) Abs.Imm.Granulo cyte <0.03 0.00-0.30 k/uL Performed By: #### LIP, CDP, CP #### [facility] Lab [address] [place] [address] Grain Elevator Agent: Kye Jasso MD COMP METABOLIC PROF Collected: 09/29/19 24 7:30 PM Status: F Source: [facility] REPOSITORY TYPE CODE TESTS RESULT OUT OF RANGE REFERENCE UNITS LAB NA(LOINC) NA (Sodium) 138 135-144 mmol/L LAB K(LOINC) K (Potassium) 3.5 Low 3.7-5.3 mmol/L LAB CL(LOINC) Chloride 104 98-107 mmol/L LAB HCO(LOINC) CO2 24 20-31 mmol/L LAB GAP(LOINC) Anion Gap 10 9-17 mmol/L LAB GLU(LOINC) Glucose 126 High 70-99 mg/dL LAB BUN(LOINC) BUN (Urea N) 10 6-20 mg/dL LAB CRE(LOINC) Creatinine 0.8 0.5-0.9 mg/dL LAB EGFR(LOINC) eGFR 88 >60 mL/min/1 .73m2 Result Comment: These results are not intended [...] following therapy that affects renal tubular secretion. LAB BUNCRE(LOINC) BUN/CRE Ratio 13 9-20 LAB CA(LOINC) Calcium 10.0 8.6-10.4 mg/dL LAB TP(LOINC) Protein, Total 6.7 6.4-8.3 g/dL LAB ALB(LOINC) Albumin 4.4 3.5-5.2 g/dL LAB AG(LOINC) Albumin/Glob Ratio 1.9 1.0-2.5 LAB TBIL(LOINC) Bilirubin, Total 0.3 0.3-1.2 mg/dL LAB ALP(LOINC) Alkaline Phos 123 High 35-104 U/L LAB ALT(LOINC) ALT 15 5-33 U/L LAB AST(LOINC) AST 21 <32 U/L Performed By: #### WALTER JOSE, CP #### [facility] [address] [place] [address] [place] [address] Grain Elevator Agent: Kye Jasso MD LIPASE Collected: 4 7:30 PM Status: F Source: [facility] REPOSITORY TYPE CODE TESTS RESULT OUT OF RANGE REFERENCE UNITS LAB LIP(LOINC) Lipase 141 High 13-60 U/L Performed By: #### WALTER JOSE, CP #### [facility] [address] [place] [address] Grain Elevator Agent: Kye Jasso MD ALLERGIES DATE TYPE / CODE NAME / CODE REACTION SEVERITY SOURCE 03/18/2024 DRUG INGREDI~NON-CBO RD/[id number](SN OMED CT) PROCHLORPERAZINE Anaphylaxis [facility] 09/12/2020 DRUG INGREDI~NON-CBO RD/[id number](SN OMED CT) FENTANYL Hives [facility] 06/12/2020 DRUG INGREDI~NON-CBO RD/[id number](SN OMED CT) KETOROLAC [facility] 08/23/2019 DRUG INGREDI/[id number](SNOMED CT) ENOXAPARIN Itching [facility] 08/23/2019 DRUG INGREDI~NON-CBO RD/[id number](SN OMED CT) ENOXAPARIN Itching~Rash [facility] 10/09/2017 DRUG INGREDI~NON-CBO RD/[id number](SN OMED CT) IBUPROFEN Anaphylaxis [facility] 10/09/2017 Drug Class~NON-CBORD /[id number](SNOM ED CT) PENICILLINS Anaphylaxis [facility] 10/09/2017 DRUG INGREDI~NON-CBO RD/[id number](SN OMED CT) HALOPERIDOL [facility] 10/09/2017 DRUG INGREDI~NON-CBO RD/[id number](SN OMED CT) MORPHINE [facility] 10/09/2017 DRUG INGREDI~NON-CBO RD/[id number](SN OMED CT) TRAMADOL [facility] 06/30/2016 DRUG INGREDI~NON-CBO RD/[id number](SN OMED CT) METOCLOPRAMIDE Anxiety [facility] ENCOUNTERS ADMIT/DISCHARGE ACCOUNT NUMBER ADMITTING ENCOUNTER CLASS LOCATION SOURCE 05/31/2024/06/01/19 [id number] Emergency Building:[facility]_E DRoom: 8Bed: 08 [facility] 04/07/2024/04/07/19 [id number] Emergency Building:[facility] om: 10Bed: 10 [facility] 03/18/2024/03/18/19 [id number] Emergency Building:[facility]_E DRoom: 3Bed: 03 [facility] 01/19/2024 [id number] [facility] [place] ng:D2[facility] 01/14/2024/01/14/20 24 [id number] Emergency Building:[facility]_E DRoom: 3Bed: 03 [facility] 01/07/2024/01/07/20 24 [id number] Emergency Building:[facility] om: 11Bed: 11 [facility] 12/29/2023/12/29/19 24 [id number] Emergency Building:[facility]_E DRoom: 2Bed: 02 [facility] 09/29/2023/09/29/19 24 [id number] Emergency Building:[facility] om: 03Bed: 03 [facility] 09/08/2023 [id number] [facility] ng:D2[facility] FUNCTIONAL STATUS No Functional Status Records Found EQUIPMENT No Equipment Records Found 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 SOURCE 05/31/2024 [place]ARD[place]: [place] [address]Zof: (HP) Primary Insurance:[employer] MED[employer] HMOPolicy Number: [id number] Date:2022-04-09 CHIOMA DARDEN: [id number] [place] [address] [facility] 04/07/2024 [place]OMA DARDEN: [address] [place], [place] [address]Bnt: (HP) Primary Insurance:[facility] Number: [id number] Date:2023-06-08P.O. JUAN [address] [place] [address]HB: [place]OMA DARDEN: [id number] [place] [place], [place] [address]Nsa: (HP) (WP) [facility] 04/07/2024 Secondary Insurance:[employer] icy Number: [id number] Date:1450-31-77[address]Z [address] [address]GS: [place]ARDEN: [id number] [place] [place], [place] [address]Rcr: (HP) (WP) [facility] 03/18/2024 CHIOMA DARDEN: [place] [address]Oug: (HP) Primary Insurance:[facility] [employer] ADVPolicy Number: [id number] Date:2023-06-08 CHIOMA DARDEN: [id number] [place] [address] [facility] 03/18/2024 Secondary Insurance:[employer] OPolicy Number: [id number] Date:2022-04-09 CHIOMA DARDEN: [id number] [place] [address] [facility] 01/19/2024 CHIOMA HIGH: [address] [place] [place], [place] [address]Mkd: ~(61 4 (HP) Primary Insurance:[employer] icy Number: [id number] Date:9342-89-33Uycp Name:ERICK HIGH: [id number] [place], [place] [address]Anx: (HP) [facility] 01/14/2024 CHIOMA DARDEN: [place] [address]Ket: (HP) Primary Insurance:[facility] [employer] ADVPolicy Number: [id number] Date:2023-06-08 CHIOMA DARDEN: [id number] [place], [place] [address]Apv: (HP) [facility] 01/14/2024 Secondary Insurance:[employer] HMOPolicy Number: [id number] Date:2022-04-09 CHIOMA DARDEN: [id number] [place] [address]Saq: (HP) [facility] 01/07/2024 CHIOMA DARDEN: [address] [place], [place] [address]Jir: (HP) Primary Insurance:[facility] Number: [id number] Date:2023-06-[address] [address]ER: CHIOMA DARDEN: [id number] [place], [place] [address]Llw: (HP) (WP) [facility] 01/07/2024 Secondary Insurance:[facility] Number: [id number] Date:7514-73-83[address] [address]QE: CHIOMA DARDEN: [id number] [place], [place] [address]Diu: (WP) [facility] 12/29/2023 CHIOMA DARDEN: [place] [address]Ofv: (HP) Primary Insurance:[employer] HMOPolicy Number: [id number] Date:2022-04-09 CHIOMA DARDEN: [id number] [place] [address]Iqd: (HP) [facility] 09/29/2023 CHIOMA DARDEN: [facility] [place] [address]Ldd: (HP) Primary Insurance:[employer] Number: [id number] Date:2420-30-82OU [facility] [address] [place] [address]HF: CHIOMA DARDEN: [id number] [facility] [place], [place] [address]Ljf: (HP) () [facility] 09/08/2023 CHIOMAVAZQUEZ HIGH: [place], [place] [address]Eyw: ~(12 5 (HP) Primary Insurance:[employer] Number: [id number] Date:3945-85-89Nfvo Name:ERICK HIGH: [id number] [place], [place] [address]Trs: (HP) [facility] SOCIAL HISTORY No Social History Records Found FAMILY HISTORY No Family History Records Found ADVANCE DIRECTIVES No Advanced Directives Records Found INFORMATION SOURCE DATE CREATED AUTHOR AUTHOR'S QUANG SIFUENTES 06/10/2024 [place]
--- NOTE | 2024-06-10 05:07 | ED.GENADUL1 ---
HPI HPI - General Adult General Chief complaint: Abdominal Pain Stated complaint: Pancreatitis Pain Time Seen by Provider: 06/10/24 05:03 Source: patient Mode of arrival: walk-in Limitations: no limitations History of Present Illness HPI narrative: 53-year-old male presents for abdominal pain. It is in the epigastric area and she believes she is having a flareup of her chronic pancreatitis. No fever or trauma. The pain is moderate to severe and continuous. Related Data Home Medications ?Medication ?Instructions ?Recorded ?Confirmed No Known Home Medications 05/17/24 06/10/24 Allergies Allergy/AdvReac Type Severity Reaction Status Date / Time haloperidol (From Haldol) Allergy Intermediate Hives Verified 06/10/24 04:57 ibuprofen (From Motrin) Allergy Intermediate Hives Verified 06/10/24 04:57 tramadol Allergy Intermediate Hives Verified 06/10/24 04:57 Penicillins Allergy Unknown Anaphylaxis Verified 06/10/24 04:57 morphine Allergy swells Verified 06/10/24 04:57 prochlorperazine (From Allergy Hives Verified 06/10/24 04:57 Compazine) ketorolac (From Toradol) AdvReac Severe Hives Verified 06/10/24 04:57 fentanyl AdvReac Intermediate Hives Verified 06/10/24 04:57 Opioid HPI Opioid Management Most Recent Opioid Data: Last Pain Scale 8 01/24/24 18:41 01/24/24 Review of Systems ROS Narrative A ten point review of systems is negative except as noted above. PFSH PFSH Medical History (Updated 06/10/24 @ 06:02 by Barry Stinson MD) COPD (chronic obstructive pulmonary disease) ?J44.9 - Chronic obstructive pulmonary disease, unspecified (ICD-10) Chronic pancreatitis ?K86.1 - Other chronic pancreatitis (ICD-10) Smoker ?F17.200 - Nicotine dependence, unspecified, uncomplicated (ICD-10) History of gastrostomy tube placement Surgical History (Updated 04/03/23 @ 12:10 by Marni Farley) Hx of esophagogastroduodenoscopy ?Z98.890 - Other specified postprocedural states (ICD-10) H/O colonoscopy ?Z98.890 - Other specified postprocedural states (ICD-10) Hx of cholecystectomy ?Z90.49 - Acquired absence of other specified parts of digestive tract (ICD-10) H/O: hysterectomy ?Z90.710 - Acquired absence of both cervix and uterus (ICD-10) Social History (Updated 04/03/23 @ 12:08 by Marni Farley) Smoking status: Current every day smoker Non-prescribed substance use: denies use Highest level of school completed/degree received: high school graduate Little interest or pleasure in doing things: not at all Feeling down, depressed, or hopeless: not at all Exam Narrative Exam Narrative: Nurses note and vital signs reviewed and patient is not hypoxic. General: The patient appears in no apparent distress. Skin: Warm, dry, no pallor noted. There is no rash noted. Head: Normocephalic, atraumatic Eye: Normal conjunctiva, no drainage Ears, Nose, Mouth, and Throat: oral mucosa is moist. Nares patent. Cardiovascular: Regular Rate and Rhythm Respiratory: Patient is in no distress, no accessory muscle use, lungs are clear to auscultation, no wheezing, rales or rhonchi GI: Soft and nondistended. No masses. Tenderness present in the epigastric region. Musculoskeletal: The patient has no evidence of calf tenderness, no pitting edema, symmetrical pulses noted bilaterally Neurological: A&O, normal speech Psychiatric: Cooperative Constitutional Vital Signs, click to edit/add: Last Vital Signs Temp 98.1 F 06/10/24 04:54 Pulse 113 H 06/10/24 04:54 Resp 16 06/10/24 04:54 BP 135/94 H 06/10/24 04:54 Pulse Ox 98 06/10/24 04:54 O2 Del Method Room Air 06/10/24 04:54 Course Vital Signs Vital signs: Vital Signs Temperature 98.1 F 06/10/24 04:54 Pulse Rate 113 H 06/10/24 04:54 Respiratory Rate 16 06/10/24 04:54 Blood Pressure 135/94 H 06/10/24 04:54 Pulse Oximetry 98 06/10/24 04:54 Oxygen Delivery Method Room Air 06/10/24 04:54 Temperature 98.1 F 06/10/24 04:54 Pulse Rate 113 H 06/10/24 04:54 Respiratory Rate 16 06/10/24 04:54 Blood Pressure 135/94 H 06/10/24 04:54 Pulse Oximetry 98 06/10/24 04:54 Oxygen Delivery Method Room Air 06/10/24 04:54 Medical Decision Making MDM Narrative Medical decision making narrative: Blood work including amylase and lipase is essentially normal. She is feeling improved after being given IM Dilaudid and ODT Zofran. Treatment diagnosis and follow-up were discussed with the patient. Differential Diagnosis Differential Diagnosis: Chronic pancreatitis, acute pancreatitis Lab Data Lab results reviewed: Yes I reviewed the patient's lab results Labs: Lab Results 06/10/24 Range/Units 05:14 WBC 9.8 (4.0-11.0) 10^3/uL RBC 4.40 (4.20-5.40) 10^6/uL Hgb 14.8 (12.0-16.0) g/dL Hct 43.1 (36.0-48.0) % MCV 98.0 (81.0-99.0) fL MCH 33.6 (26.7-34.0) pg MCHC 34.3 (29.9-35.2) g/dL RDW 12.7 (11.0-15.0) % Plt Count 278 (150-450) 10^3/uL MPV 9.8 (9.5-13.5) fL Neut % (Auto) 52.4 (43.0-75.0) % Lymph % (Auto) 34.2 (20.5-60.0) % [place] % (Auto) 10.3 (1.7-12.0) % Eos % (Auto) 2.0 (0.9-7.0) % Baso % (Auto) 0.9 (0.2-2.0) % Neut # (Auto) 5.1 (1.4-6.5) 10^3/uL Lymph # (Auto) 3.3 (1.2-3.8) 10^3/uL [place] # (Auto) 1.0 H (0.3-0.8) 10^3/uL Eos # (Auto) 0.2 (0.0-0.7) 10^3/uL Baso # (Auto) 0.1 (0.0-0.1) 10^3/uL Abs Immat Gran (auto) 0.02 (0.00-0.03) 10^3/uL Imm/Tot Granulo (auto) 0.2 (0.0-0.5) % Sodium 140 (136-145) mmol/L Potassium 3.3 L (3.5-5.1) mmol/L Chloride 104 (98-107) mmol/L Carbon Dioxide 24.0 (21.0-32.0) mmol/L Anion Gap 15.3 BUN 10.0 (7.0-18.0) mg/dL Creatinine 0.93 (0.55-1.02) mg/dL Est GFR ( Amer) >60 (>=60 mL/min/1.73m^2) Est GFR (Non-Af Amer) >60 (>=60 mL/min/1.73m^2) BUN/Creatinine Ratio 10.8 Glucose 127 H (74-106) mg/dL Calcium 9.6 (8.5-10.1) mg/dL Total Bilirubin 0.2 (0.2-1.0) mg/dL Direct Bilirubin <0.1 (0.0-0.2) mg/dL AST 16 (15-37) U/L ALT 14 (14-59) U/L Alkaline Phosphatase 127 H (46-116) U/L Total Protein 7.1 (6.4-8.2) g/dL Albumin 3.8 (3.4-5.0) g/dL Globulin 3.3 g/dL Albumin/Globulin Ratio 1.2 Amylase 101 (25-115) U/L Lipase 52.0 (16.0-77.0) U/L Discharge Plan Discharge Chief Complaint: Abdominal Pain Clinical Impression: Chronic pancreatitis Patient Disposition: Home, Self-Care Time of Disposition Decision: 06:02 Condition: Good Mode of Transportation: Private Vehicle Prescriptions / Home Meds: No Action No Known Home Medications Print Language: Sinhala Instructions: Abdominal Pain (ED) Referrals: [facility] [Primary Care Provider] - 1 week
[2024-06-10] MEDS: HYDROMORPHONE HCL 1 MG/ML CARTRIDGE IM (05:22)
[2024-06-10] MEDS: ONDANSETRON 4 MG RAPDIS TABLET SL (05:22)
[2024-06-10 05:32] LABS: Basophils Absolute Auto 0.1 10^3/uL (0.0-0.1); Basophils Percent Auto 0.9 % (0.2-2.0); Eosinophils Absolute Auto 0.2 10^3/uL (0.0-0.7); Hematocrit 43.1 % (36.0-48.0); Hemoglobin 14.8 g/dL (12.0-16.0); Immature Granulocytes Abs Auto 0.02 10^3/uL (0.00-0.03); Immature Granulocytes Pct Auto 0.2 % (0.0-0.5); Lymphocytes Absolute Auto 3.3 10^3/uL (1.2-3.8); Lymphocytes Percent Auto 34.2 % (20.5-60.0); Mean Corpuscular HGB Conc 34.3 g/dL (29.9-35.2); Mean Corpuscular Hemoglobin 33.6 pg (26.7-34.0); Mean Platelet Volume 9.8 fL (9.5-13.5); Monocytes Percent Auto 10.3 % (1.7-12.0); Neutrophils Absolute Auto 5.1 10^3/uL (1.4-6.5); Neutrophils Percent Auto 52.4 % (43.0-75.0); Platelet Count 278 10^3/uL (150-450); Red Cell Distribution Width 12.7 % (11.0-15.0); White Blood Count 9.8 10^3/uL (4.0-11.0)
[2024-06-10 05:54] LABS: Alanine Aminotransferase 14 U/L (14-59); Albumin Globulin Ratio 1.2; Albumin Level 3.8 g/dL (3.4-5.0); Alkaline Phosphatase 127 U/L (46-116); Amylase 101 U/L (25-115); Anion Gap 15.3; Aspartate Amino Transferase 16 U/L (15-37); BUN Creatinine Ratio 10.8; Bilirubin Direct <0.1 mg/dL (0.0-0.2); Bilirubin Total 0.2 mg/dL (0.2-1.0); Calcium 9.6 mg/dL (8.5-10.1); Chloride 104 mmol/L (98-107); Estimated GFR (African America >60 (>=60 mL/min/1.73m^2); Estimated GFR (Non-African Ame >60 (>=60 mL/min/1.73m^2); Globulin 3.3 g/dL; Glucose 127 mg/dL (74-106); Potassium 3.3 mmol/L (3.5-5.1); Sodium 140 mmol/L (136-145); Total Protein 7.1 g/dL (6.4-8.2)
[2024-06-10 06:06] VITALS: BP 124/83; PULSE 96; O2SAT 98
== END 2024-06-10 06:08 | disposition home or self-care (01) ==
PROVIDERS: Emergency Provider Emergency Medicine
DX: K86.1 Other chronic pancreatitis (principal); Z90.49 Acquired absence of other specified parts of digestive tract; Z90.710 Acquired absence of both cervix and uterus; F17.200 Nicotine dependence, unspecified, uncomplicated
CPT/HCPCS: 36415; 80048; 80076; 82150; 83690; 85025; 96372; 99284; J1171; Q0162

== ENCOUNTER 2024-07-18 21:09 | Emergency (ER) | payer OTHER, SELFPAY ==
[2024-07-18 21:20] VITALS: BP 128/92; PULSE 90; TEMP 36.7; O2SAT 98; BMI 24.7
--- OUTSIDE RECORDS SUMMARY | 2024-07-18 21:41 | XMS_ITS | CCD ---
Author Organization [facility] ion Partnership [facility] Care Team Providers Care Braid Maker Name Role Phone MagdalenaAlexander Unavailable MAGDALENA ALEXANDER Unavailable Unavailable COPC SACHIN, GENERIC Unavailable Unavailable COPC SACHIN, GENERIC Unavailable Unavailable ALIRIO NEGRO Unavailable Unavailable LI MARILEEWA Unavailable Unavailable JOANA MENDES Unavailable Unavailable LIMARILEEWA Unavailable Unavailable ERROL WALTON Unavailable Unavaila ble LI ALEXANDER Unavailable Unavailable KEERTHI NGUYEN Unavailable Unavailable COPC SACHIN, GENERIC Unavailable Unavailable KEERTHI NGUYEN Unavailable Unavailable LI KEWA Unavailable Unavailable PH[facility]ICIANS, [facility] Unavailable Unav ailable EUGENIA SHELTON Unavailable Unavailable [facility], [facility] Unavailable Unav ailable Unavailable Primary Care Provider Unavailflorida Nichols Alexander Primary Care Provider Unavailable Primary Care Provider UnavailMarya Guajardo Unavailable NON STAFF Primary Care Provider UnavailDO Keaton Thompson Emergency Provider SALMA Amor Emergency Provider SALMA Lopez Emergency Provider [phone] Woodrow ALEXANDER, Pineda Rock Unavailable [facility], Other Primary Care Provi mathew NON STAFF Primary Care Provider MD Agustin Baker Emergency Provider DR TRI HANSON Consulting Unavailable ARIC CHAUDHARY Attending Unavailable ARIC CHAUDHARY Admitting Unavailable [facility] Primary [...] Admitting Unavailable GRECHNY ., ANKIT BOYKIN [facility]ing [facility]available ANNELIESE, NICK Consulting Unavailable JANUSZ ., ARIC Consulting Unavailable AGUSTIN HIGHTOWER Consulting Unavailable ROLAN EUCEDA Consulting Unavailable AMINATA, DR RAJEEV Chan Consulting Unavailable BRIANNA, DR SHARON Silveira Attending [facility] REINECK, DR SHARON Silveira Admitting [facility] Unavailable BRIANNA, DR SHARON Silveira Consulting [facility] HANS ., NAT Consulting Unavailable HANS ., NAT Consulting Unavailable PAY ., DR MACEDO Attending Unavailable PAY ., DR MACEDO Admitting Unavailable [facility] Primary Care Unavailable ANNELIESE, NICK Consulting Unavailable ANNELIESE, NICK Attending Unavailable ANNELIESE, NICK Admitting Unavailable [facility] Primary Care Unavailable MILADIS BARRERA Consulting Unavailable JANUSZ ., ARIC Attending Unavailable JANUSZ ., ARIC Admitting Unavailable JANUSZ ., ARIC Consulting Unavailable [facility] Primary Care Unavailable ION KRUSE Consulting Unavailable YANNI FRASER Attending Unavailable YANNI FRASER Admitting Unavailable JANNY ., ANKIT BOYKIN Consulting [facility] Unavailable LYNNE PERDOMO Consulting [...] NICK Attending Unavailable ANNELIESE, NICK Admitting Unavailable [facility] Primary Care Unavailable AGUSTIN HIGHTOWER Unavailable DR RAJEEV KELLOGG Consulting Unavailable TANVIR Herron, DR GRANT Attending Unavailable TANVIR ., DR GRANT Admitting Unavailable [facility] Primary Care Unavailable TANVIR Herron, DR GRANT Consulting Unavailable NON STAFF Primary Care Provider Unavailabl e Saffle, ROLLER LEVELER Nicole N Emergency Provider NON STAFF Primary Care Provider Unavailabl e Saffle, ROLLER LEVELER Nicole N Emergency Provider [phone] DO Rivera Lopez Emergency Provider [phone] MD Xiang Kellogg Emergency Provider Woodrow ALEXANDER, Pineda T Unavailable [facility], Other Primary Care Provi mathew NON STAFF Primary Care Unavailable Saffle, Nicole N Admitting Unavailable Saffle, Nicole N Attending Unavailable NON STAFF Primary Care Unavailable Rivera Lopez Admitting Unavailable Rivera Lopez Attending Unavailable Saffle, Nicole N Attending Unavailable NON STAFF Primary Care Unavailable Saffle, Nicole N Admitting Unavailable NON STAFF Primary Care Unavailable Xiang Kellogg Admitting Unavailable Xiang Kellogg Attending Unavailable Woodrow ALEXANDER, Pineda T Unavailable SABRINA DEE Attending Unavailabl e [facility], OTHER Primary Care Un available SELF, SELF Referring Unavailable SABRINA DEE Attending Unavailabl e SABRINA DEE Referring Unavailabl e [facility], OTHER Primary Care Un available SABRINA DEE Referring Unavailabl e [facility], OTHER Primary Care Un available SABRINA DEE Attending Unavailabl e Unavailable Primary Care Provider Unavailabl e PETER ESCALERA Attending Unavailable Services, [facility] Primary Care Provider SERVICES, [facility] Primary Care Unava ilable STEPHANIE MAHMOOD Attending Unavailable SERVICES, [facility] Primary Care Unava ilable TABITHA NEWELL Attending Unavailable SERVICES, [facility] Primary Care Unava ilable AGUSTIN MICHAEL Attending Unavaila ble SERVICES, [facility] Primary Care Unava ilable VIVIAN TRINH Attending Unavailable SERVICES, [facility] Primary Care Unava EMILIE Acosta Attending Unavailable SERVICES, [facility] TABITHA Childers Attending Unavailable Allergies Allergy Classification Reported Allergen(s) Allergy Type Date of Onset Reaction(s) Facility DOPamine Antagonists (1 source) Metoclopramide Drug Allergy 07-20-19 17 Anxiety [facility] Haloperidol (1 source) Haloperidol Drug Allergy 06-02-19 16 [facility] NSAIDs (1 source) Ibuprofen Drug Allergy 10-31-19 13 Hives, Swelling [facility] Opioid Agonists (2 sources) Morphine Drug Allergy 10-24-19 15 [facility] Penicillins (antibiotic) (1 source) Penicillins Drug Allergy 10-31-19 13 Swelling [facility] Work Phone: (20 sources) haloperidol; Translations: [HALOPERIDOL] Propensity to adverse reactions to drug 06-02-[address] [facility] (20 sources) ibuprofen; Translations: [IBUPROFEN] Propensity to adverse reactions to drug 10-31-19 13 Hives, Swelling, Anaphylaxis [facility] (6 sources) metoclopramide; Translations: [METOCLOPRAMIDE HCL] Propensity to adverse reactions to drug 07-01-19 17 [facility] (6 sources) penicillin g; Translations: [PENICILLIN G] Propensity to adverse reactions to drug 07-25-19 15 Anaphylaxis [facility] (20 sources) traMADol; Translations: [TRAMADOL] Propensity to adverse reactions to drug 07-25-[address] [facility] (20 sources) morphine; Translations: [MORPHINE] Drug Allergy 07-16-[address] [facility] (9 sources) Enoxaparin; Translations: [ENOXAPARIN] Drug Allergy 08-23-19 20 Itching, Rash [place], [place] (5 sources) Haloperidol Drug Allergy 10-20-19 18 Swelling [place] (16 sources) Penicillins; Translations: [PENICILLINS] Propensity to adverse reactions to drug 10-31-19 13 Anaphylaxis, Swelling [place] (2 sources) Haloperidol; Translations: [Haldol] Drug Allergy 08-10-19 19 Unknown [facility] (15 sources) fentaNYL; Translations: [Fentanyl] Drug Allergy 09-13-19 21 [facility] (13 sources) Ketorolac; Translations: [ketorolac] Drug Allergy 06-13-19 21 Hives [facility] (6 sources) Ketorolac Drug Allergy 12-17-19 22 Hives, Itching [facility] (11 sources) Metoclopramide; Translations: [METOCLOPRAMIDE] Drug Allergy 07-01-19 17 Anxiety [facility] (1 source) Ibuprofen Drug Allergy 01-09-20 13 [facility] (1 source) Ketorolac Drug Allergy [facility] (1 source) Morphine Drug Allergy 08-10-19 19 [facility] Rep[facility] (1 source) Penicillins Drug allergy (disorder) 01-09-20 13 [facility] (1 source) traMADol Drug Allergy 01-09-20 13 [facility] (3 sources) Ketorolac trometamol Propensity to adverse reactions to drug 12-17-19 22 Hives, Itching [facility] (2 sources) Penicillins Propensity to adverse reactions to drug 10-31-19 13 Swelling [facility] Work Phone: (1 source) Haloperidol Drug Allergy 04-18-19 [facility] Rep[facility] (1 source) Ibuprofen Drug Allergy 04-18-19 [facility] (1 source) Morphine Drug Allergy 04-18-19 [facility] (1 source) Penicillins Drug allergy (disorder) 04-18-19 [facility] (1 source) traMADol Drug Allergy 04-18-19 [facility] (7 sources) Penicillins Propensity to adverse reactions to drug 10-10-19 18 Anaphylaxis [facility] (1 source) Prochlorperazine; Translations: [PROCHLORPERAZINE] Drug Allergy 03-18-19 25 [facility] Medications Current Medications Medication Drug Class(es) [...] 30 tablet 11 12/01/2019 05/11/2023 Discontinued amylase 148098 unt / lipase 06435 unt / protease 74368 unt delayed release oral capsule (19 sources) Start: 12-23-2023 take 3 capsules by mouth twice daily at mealtime Pancreatic enzymes (Creon) 62456-01[address]-415261 units Cap DR Particles capsule Take 3 capsules by mouth 2 times daily with meals. 180 capsule 11 12/23/2023 Active Start: 05-11-2023 take 3 capsules by m outh twice daily at mealtime Pancreatic enzymes (Creon) 43960-[address] Particles capsule Take 3 capsules by mouth 2 times daily with meals. 180 capsule 11 05/11/2023 Active Start: 12-16-2021 End: 05-11-2023 take 2 capsules by mouth three times daily at mealtime Pancreatic enzymes (Creon) 03868-[address] Particles capsule Take 2 [...] Start: 08-26-2021 take 1 tablet by sachin every six hours dicyclomine (BENTYL) 20 mg [...] by mouth every week Ergocalciferol 1.25 MG (60231 UT) capsule Take 1 capsule by mouth once a week. 8 capsule 05/11/2023 Active Start: 01-28-2022 End: 03-19-2022 take 1 capsule by mouth every week ergocalciferol 1.25 MG (49075 UT) capsule Take 1 capsule by mouth [...] mg by mouth daily . 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; Translations: [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 PIPER 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 CURRENT DRUG THERAPY] Onset: 3 Episodic Other gastrointestinal disorders (18 sources) Diarrhea; Translations: [Diarrhea, unspecified] Onset: 6 Resolved: 7 07-06-2019 Episodic Other gastrointestinal disorders (7 sources) History [...] [PROC AND TX NOT CARRIED OUT PT OT RSN] Onset: 3 Episodic Screening and history [...] Name Value Interpretation Reference Range Facility CBC AND AUTO DIFFon 06-28-19 25 ABSOLUTE BASOPHIL 0.1 X10E9/L Normal 0.0-0.2 [facility] Comment on above: Performed By: #### C BCA, LIVR, 27930-0, 21515-6, 5643-2, 57520-6, 3040-3, BMP #### [facility] ([id number]) [address] [place] [address] 84460 ABSOLUTE NEUTROPHIL 4.9 X10E9/L Normal 1.5-6.6 [facility] Comment on above: Performed By: #### C BCA, LIVR, 61469-9, 28212-7, 5643-2, 09198-9, 3040-3, BMP #### [facility] ([id number]) [address] [place] [address] 45933 Basophils/100 WBC (Bld) 1.2 % Normal [facility] Comment on above: Performed By: #### C BCA, LIVR, 67350-4, 90204-1, 5643-2, 94623-5, 3040-3, BMP #### [facility] ([id number]) [address] [place] [address] 91658 Eosinophils (Bld) [#/Vol] 0.1 10*3/uL Normal 0.0-0.4 [facility] Comment on above: Performed By: #### C BCA, LIVR, 39247-6, 88440-0, 5643-2, 71019-0, 3040-3, BMP #### [facility] ([id number]) [address] [place] [address] 37250 Eosinophils/100 WBC (Bld) 1.3 % Normal [facility] Comment on above: Performed By: #### C BCA, LIVR, 39028-5, 53212-4, 5643-2, 54061-4, 3040-3, BMP #### [facility] ([id number]) [address] [place] [address] 26939 Erythrocyte distribution width (RBC) [Ratio] 13.1 % Normal 11.5-15.0 [facility] Comment on above: Performed By: #### C BCA, LIVR, 65600-4, 95082-2, 5643-2, 80394-5, 3040-3, BMP #### [facility] ([id number]) [address] [place] [address] 01044 Hematocrit (Bld) [Volume fraction] 40.9 % Normal 35-47 [facility] Comment on above: Performed By: #### C BCA, LIVR, 00811-1, 95538-3, 5643-2, 31105-8, 3040-3, BMP #### [facility] ([id number]) [address] [place] [address] 71520 Hemoglobin (Bld) [Mass/Vol] 14.3 g/dL Normal 11.7-15.5 [facility] Comment on above: Performed By: #### C BCA, LIVR, 01743-1, 06815-2, 5643-2, 89383-9, 3040-3, BMP #### [facility] ([id number]) [address] [place] [address] 40216 Lymphocytes (Bld) [#/Vol] 2.3 10*3/uL Normal 1.0-3.5 [facility] Comment on above: Performed By: #### C BCA, LIVR, 58915-6, 14950-1, 5643-2, 10941-1, 3040-3, BMP #### [facility] ([id number]) [address] [place] [address] 89078 Lymphocytes/100 WBC (Bld) 27.6 % Normal [facility] Comment on above: Performed By: #### Clara BCA, LIVR, 76807-3, 23653-0, 5643-2, 85093-9, 3040-3, BMP #### [facility] ([id number]) [address] [place] [address] 93487 MCH (RBC) [Entitic mass] 34.2 pg High 27-34 [facility] Comment on above: Performed By: #### C BCA, LIVR, 32463-7, 07103-5, 5643-2, 56334-8, 3040-3, BMP #### [facility] ([id number]) [address] [place] [address] 43160 MCHC (RBC) [Mass/Vol] 35.0 g/dL Normal 32-36 [facility] Comment on above: Performed By: #### C BCA, LIVR, 96592-4, 18103-2, 5643-2, 49343-8, 3040-3, BMP #### [facility] ([id number]) [address] [place] [address] 92694 MCV (RBC) [Entitic vol] 98 fL Normal 80-100 [facility] Comment on above: Performed By: #### C BCA, LIVR, 54704-9, 73904-2, 5643-2, 75811-8, 3040-3, BMP #### [facility] ([id number]) [address] [place] [address] 05213 Monocytes (Bld) [#/Vol] 1.0 10*3/uL High 0-0.9 [facility] Comment on above: Performed By: #### C BCA, LIVR, 03366-2, 02143-0, 5643-2, 43340-4, 3040-3, BMP #### [facility] ([id number]) [address] [place] [address] 25479 Monocytes/100 WBC (Bld) 11.4 % Normal [facility] Comment on above: Performed By: #### C BCA, LIVR, 87936-0, 17806-6, 5643-2, 09575-0, 3040-3, BMP #### [facility] ([id number]) [address] [place] [address] 97359 Neutrophils/100 WBC (Bld) 58.5 % Normal [facility] Comment on above: Performed By: #### C EZEQUIEL, LIVR, 10544-1, 46225-4, 5643-2, 54717-1, 3040-3, BMP #### [facility] ([id number]) [address] [place] [address] 19831 Platelet mean volume (Bld) [Entitic vol] 7.9 fL Normal 7-12 [facility] Comment on above: Performed By: #### C BCA, LIVR, 99955-5, 32980-7, 5643-2, 53064-1, 3040-3, BMP #### [facility] ([id number]) [address] [place] [address] 13326 Platelets (Bld) [#/Vol] 267 10*3/uL Normal 150-450 [facility] Comment on above: Performed By: #### C EZEQUIEL, LIVR, 67527-4, 38117-3, 5643-2, 55896-7, 3040-3, BMP #### [facility] ([id number]) [address] [place] [address] 25021 RBC COUNT 4.18 X10E12/L Normal 3.80-5.20 [facility] Comment on above: Performed By: #### C BCA, LIVR, 08869-4, 10067-2, 5643-2, 93161-3, 3040-3, BMP #### [facility] ([id number]) [address] [place] [address] 23323 WBC (Bld) [#/Vol] 8.4 10*3/uL Normal 4.0-11.0 [facility] Comment on above: Performed By: #### C BCA, LIVR, 19938-0, 33796-5, 5643-2, 45140-6, 3040-3, BMP #### [facility] ([id number]) [address] [place] [address] 55095 COMPREHENSIVE METABOLIC PANE Nimesh 06-27-2024 Albumin [Mass/Vol] 4.1 g/dL Normal 3.2-5.3 [facility] Comment on above: Performed By: #### C BCA, LIVR, 71488-3, 58276-7, 5643-2, 79376-4, 3040-3, BMP #### [facility] ([id number]) [address] [place] [address] 21123 ALP [Catalytic activity/Vol] 133 U/L High 39-130 [facility] Comment on above: Performed By: #### C BCA, LIVR, 06853-4, 95799-9, 5643-2, 46201-9, 3040-3, BMP #### [facility] ([id number]) [address] [place] [address] 76829 ALT [Catalytic activity/Vol] 14 U/L Normal 0-31 [facility] Comment on above: Performed By: #### C BCA, LIVR, 28820-8, 93664-3, 5643-2, 00366-8, 3040-3, BMP #### [facility] ([id number]) [address] [place] [address] 95036 Anion gap [Moles/Vol] 8 mmol/L Normal 5-15 [facility] Comment on above: Performed By: #### C BCA, LIVR, 46800-9, 62267-8, 5643-2, 51226-1, 3040-3, BMP #### [facility] ([id number]) [address] [place] [address] [place] [address] AST [Catalytic activity/Vol] 19 U/L Normal 0-41 [facility] Comment on above: Performed By: #### C BCA, LIVR, 05742-1, 73630-9, 5643-2, 03709-6, 3040-3, BMP #### [facility] ([id number]) [address] [place] [address] 82980 Bilirubin [Mass/Vol] 0.3 mg/dL Normal 0.3-1.2 [facility] Comment on above: Performed By: #### C BCA, LIVR, 12905-8, 72328-5, 5643-2, 53509-2, 3040-3, BMP #### [facility] ([id number]) [address] [place] [address] 68761 Calcium [Mass/Vol] 10.7 mg/dL High 8.5-10.5 [facility] Comment on above: Performed By: #### C BCA, LIVR, 51958-6, 45098-7, 5643-2, 80884-4, 3040-3, BMP #### [facility] ([id number]) [address] [place] [address] 49410 Chloride [Moles/Vol] 104 mmol/L Normal 98-109 [facility] Comment on above: Performed By: #### C BCA, LIVR, 50623-1, 31432-0, 5643-2, 41609-4, 3040-3, BMP #### [facility] ([id number]) [address] [place] [address] 67851 CO2 [Moles/Vol] 26 mmol/L Normal 22-32 [facility] Comment on above: Performed By: #### C BCA, LIVR, 05257-1, 09316-2, 5643-2, 06415-0, 3040-3, BMP #### [facility] ([id number]) [address] [place] [address] 78934 Creatinine [Mass/Vol] 0.76 mg/dL Normal 0.40-1.00 [facility] Comment on above: Result Comment: METH OD TRACEABLE TO IDMS STANDARD Performed By: #### C BCA, LIVR, 46397-7, 39169-8, 5643-2, 43276-7, 3040-3, BMP #### [facility] ([id number]) [address] [place] [address] 63620 eGFR (CKD-EPI) NON-RACE DEPENDENT >90 Normal >59 [facility] Comment on above: Result Comment: Reported eGFR is based on the CKD-EPI 2020 equation that does not use a race coefficient. Performed By: #### C BCA, LIVR, 60280-5, 32873-1, 5643-2, 30587-1, 3040-3, BMP #### [facility] ([id number]) [address] [place] [address] 33214 Glucose [Mass/Vol] 106 mg/dL High 65-99 [facility] Comment on above: Performed By: #### C BCA, LIVR, 42828-5, 92683-4, 5643-2, 47820-9, 3040-3, BMP #### [facility] ([id number]) [address] [place] [address] 17597 Potassium [Moles/Vol] 3.9 mmol/L Normal 3.5-5.0 [facility] Comment on above: Performed By: #### C BCA, LIVR, 16344-4, 79822-4, 5643-2, 41519-5, 3040-3, BMP #### [facility] ([id number]) [address] [place] [address] 95035 Protein [Mass/Vol] 7.0 g/dL Normal 6.0-8.0 [facility] Comment on above: Performed By: #### C BCA, LIVR, 15335-9, 75887-4, 5643-2, 39835-6, 3040-3, BMP #### [facility] ([id number]) [address] [place] [address] 97756 Sodium [Moles/Vol] 138 mmol/L Normal 134-146 [facility] Comment on above: Performed By: #### C BCA, LIVR, 54067-1, 00128-2, 5643-2, 55514-8, 3040-3, BMP #### [facility] ([id number]) [address] [place] [address] 87201 Urea nitrogen [Mass/Vol] 10 mg/dL Normal 5-23 [facility] Comment on above: Performed By: #### C BCA, LIVR, 78119-0, 32456-7, 5643-2, 11447-2, 3040-3, BMP #### [facility] ([id number]) [address] [place] [address] 89065 LIPASEon 06-27-2024 Lipase [Catalytic activity/Vol] 37 U/L Normal 17-40 [facility] Comment on above: Performed By: #### C BCA, LIVR, 98929-4, 62299-9, 5643-2, 18276-0, 3040-3, BMP #### [facility] ([id number]) [address] [place] [address] 32248 BASIC METABOLIC PANLon 06-15 Anion gap [Moles/Vol] 8 mmol/L Normal 5-15 [facility] Comment on above: Performed By: #### C BCA, LIVR, 78497-8, 27892-9, 5643-2, 81975-1, 3040-3, BMP #### [facility] ([id number]) [address] [place] [address] 25131 Calcium [Mass/Vol] 9.7 mg/dL Normal 8.5-10.5 [facility] Comment on above: Performed By: #### C BCA, LIVR, 99420-6, 11473-9, 5643-2, 05976-1, 3040-3, BMP #### [facility] ([id number]) [address] [place] [address] 48860 Chloride [Moles/Vol] 105 mmol/L Normal 98-109 [facility] Comment on above: Performed By: #### C BCA, LIVR, 88573-1, 36917-1, 5643-2, 70486-8, 3040-3, BMP #### [facility] ([id number]) [address] [place] [address] 28910 CO2 [Moles/Vol] 24 mmol/L Normal 22-32 [facility] Comment on above: Performed By: #### C BCA, LIVR, 51422-1, 71128-4, 5643-2, 62728-9, 0-3, BMP #### [facility] ([id number]) [address] [place] [address] 88192 Creatinine [Mass/Vol] 0.78 mg/dL Normal 0.40-1.00 [facility] Comment on above: Result Comment: METH OD TRACEABLE TO IDMS STANDARD Performed By: #### C BCA, LIVR, 33615-4, 79689-3, 5643-2, 66546-5, 0-3, BMP #### [facility] ([id number]) [address] [place] [address] 81792 eGFR (CKD-EPI) NON-RACE DEPENDENT >90 Normal >59 [facility] Comment on above: Result Comment: Reported eGFR is based on the CKD-EPI 2021 equation that does not use a race coefficient. Performed By: #### C BCA, LIVR, 46589-6, 43084-7, 5643-2, 98147-3, 3040-3, BMP #### [facility] ([id number]) [address] [place] [address] 92666 Glucose [Mass/Vol] 97 mg/dL Normal 65-99 [facility] Comment on above: Performed By: #### C BCA, LIVR, 93537-2, 50275-7, 5643-2, 77112-6, 3040-3, BMP #### [facility] ([id number]) [address] [place] [address] 33825 Potassium [Moles/Vol] 3.3 mmol/L Low 3.5-5.0 [facility] Comment on above: Performed By: #### C BCA, LIVR, 65075-4, 23366-1, 5643-2, 63657-5, 3040-3, BMP #### [facility] ([id number]) [address] [place] [address] 50636 Sodium [Moles/Vol] 137 mmol/L Normal 134-146 [facility] Comment on above: Performed By: #### C BCA, LIVR, 04942-8, 86139-0, 5643-2, 28537-0, 3040-3, BMP #### [facility] ([id number]) [address] [place] [address] 45257 Urea nitrogen [Mass/Vol] 9 mg/dL Normal 5-23 [facility] [facility]: Performed By: #### C BCA, LIVR, 08000-7, 07971-8, 5643-2, 47396-2, 3040-3, BMP #### [facility] ([id number]) [address] [place] [address] 76004 CBC AND AUTO DIFFon 06-16-19 25 ABSOLUTE BASOPHIL 0.1 X10E9/L Normal 0.0-0.2 [facility] Comment on above: Performed By: #### C BCA, LIVR, 26051-6, 94895-8, 5643-2, 23467-8, 3040-3, BMP #### [facility] ([id number]) [address] [place] [address] 48134 ABSOLUTE NEUTROPHIL 6.2 X10E9/L Normal 1.5-6.6 [facility] Comment on above: Performed By: #### C BCA, LIVR, 76143-5, 33050-1, 5643-2, 86816-8, 3040-3, BMP #### [facility] ([id number]) [address] [place] [address] 90194 Basophils/100 WBC (Bld) 0.9 % Normal [facility] Comment on above: Performed By: #### C BCA, LIVR, 37941-0, 90676-6, 5643-2, 64367-3, 3040-3, BMP #### [facility] ([id number]) [address] [place] [address] 68537 Eosinophils (Bld) [#/Vol] 0.1 10*3/uL Normal 0.0-0.4 [facility] Comment on above: Performed By: #### C BCA, LIVR, 79204-8, 04887-7, 5643-2, 62821-1, 3040-3, BMP #### [facility] ([id number]) [address] [place] [address] 17780 Eosinophils/100 WBC (Bld) 1.1 % Normal [facility] Comment on above: Performed By: #### C BCA, LIVR, 56564-8, 84009-9, 5643-2, 02711-4, 3040-3, BMP #### [facility] ([id number]) [address] [place] [address] 71991 Erythrocyte distribution width (RBC) [Ratio] 13.3 % Normal 11.5-15.0 [facility] Comment on above: Performed By: #### C BCA, LIVR, 95956-1, 34961-7, 5643-2, 37642-8, 3040-3, BMP #### [facility] ([id number]) [address] [place] [address] Hematocrit (Bld) [Volume fraction] 42.3 % Normal 35-47 [facility] Comment on above: Performed By: #### C BCA, LIVR, 73799-8, 82897-3, 5643-2, 58530-0, 3040-3, BMP #### [facility] ([id number]) [address] [place] [address] 95474 Hemoglobin (Bld) [Mass/Vol] 14.3 g/dL Normal 11.7-15.5 [facility] Comment on above: Performed By: #### C BCA, LIVR, 73511-1, 68306-3, 5643-2, 18924-6, 3040-3, BMP #### [facility] ([id number]) [address] [place] [address] 94590 Lymphocytes (Bld) [#/Vol] 2.6 10*3/uL Normal 1.0-3.5 [facility] Comment on above: Performed By: #### C BCA, LIVR, 76417-3, 40459-2, 5643-2, 54584-2, 3040-3, BMP #### [facility] ([id number]) [address] [place] [address] 51842 Lymphocytes/100 WBC (Bld) 26.2 % Normal [facility] Comment on above: Performed By: #### C BCA, LIVR, 13279-1, 49036-6, 5643-2, 58762-6, 3040-3, BMP #### [facility] ([id number]) [address] [place] [address] 45990 MCH (RBC) [Entitic mass] 33.5 pg Normal 27-34 [facility] Comment on above: Performed By: #### C BCA, LIVR, 42280-2, 71407-2, 5643-2, 39474-5, 3040-3, BMP #### [facility] ([id number]) [address] [place] [address] [place] [address] MCHC (RBC) [Mass/Vol] 33.8 g/dL Normal 32-36 [facility] Comment on above: Performed By: #### C BCA, LIVR, 28653-0, 66391-2, 5643-2, 56788-4, 3040-3, BMP #### [facility] ([id number]) [address] [place] [address] 91502 MCV (RBC) [Entitic vol] 99 fL Normal 80-100 [facility] Comment on above: Performed By: #### C BCA, LIVR, 62166-0, 91885-2, 5643-2, 35682-6, 3040-3, BMP #### [facility] ([id number]) [address] [place] [address] 41666 Monocytes (Bld) [#/Vol] 0.8 10*3/uL Normal 0-0.9 [facility] Comment on above: Performed By: #### C BCA, LIVR, 03284-6, 10156-5, 5643-2, 58109-0, 3040-3, BMP #### [facility] ([id number]) [address] [place] [address] 95929 Monocytes/100 WBC (Bld) 8.3 % Normal [facility] Comment on above: Performed By: #### Clara BCA, LIVR, 72560-8, 98312-4, 5643-2, 35585-2, 3040-3, BMP #### [facility] ([id number]) [address] [place] [address] 69768 Neutrophils/100 WBC (Bld) 63.5 % Normal [facility] Comment on above: Performed By: #### Clara BCA, LIVR, 53270-6, 03752-4, 5643-2, 94336-7, 3040-3, BMP #### [facility] ([id number]) [address] [place] [address] 95529 Platelet mean volume (Bld) [Entitic vol] 8.0 fL Normal 7-12 [facility] Comment on above: Performed By: #### C EZEQUIEL, LIVR, 98815-0, 74551-8, 5643-2, 50358-6, 3040-3, BMP #### [facility] ([id number]) [address] [place] [address] 79459 Platelets (Bld) [#/Vol] 263 10*3/uL Normal 150-450 [facility] Comment on above: Performed By: #### C EZEQUIEL, LIVR, 06324-4, 01165-4, 5643-2, 08902-1, 3040-3, BMP #### [facility] ([id number]) [address] [place] [address] 78180 RBC COUNT 4.28 X10E12/L Normal 3.80-5.20 [facility] Comment on above: Performed By: #### C EZEQUIEL, LIVR, 13578-5, 53333-5, 5643-2, 91356-1, 3040-3, BMP #### [facility] ([id number]) [address] [place] [address] 37821 WBC (Bld) [#/Vol] 9.8 10*3/uL Normal 4.0-11.0 [facility] Comment on above: Performed By: #### Clara NIEVES, LIVR, 39495-2, 92517-8, 5643-2, 52962-7, 3040-3, BMP #### [facility] ([id number]) [address] [place] [address] 46304 ETHANOLon 06-15-2024 Ethanol [Mass/Vol] mg/dL Normal 0.00-0.08 [facility] Comment on above: Result Comment: This report is intended for use in clinical monitoring or management of patients. Performed By: #### Clara NIEVES LIVR, 72092-8, 91717-8, 5643-2, 67470-8, 3040-3, BMP #### [facility] ([id number]) [address] [place] [address] 41235 LIPASEon 06-15-2024 Lipase [Catalytic activity/Vol] 83 U/L High 17-40 [facility] Comment on above: Performed By: #### C BCA, LIVR, 55116-8, 95546-4, 5643-2, 69560-8, 3040-3, BMP #### [facility] ([id number]) [address] [place] [address] 09481 LIVER PANELon 06-15-2024 Albumin [Mass/Vol] 4.2 g/dL Normal 3.2-5.3 [facility] Comment on above: Performed By: #### C BCA, LIVR, 21443-4, 50814-9, 5643-2, 58038-7, 3040-3, BMP #### [facility] ([id number]) [address] [place] [address] 92185 ALP [Catalytic activity/Vol] 106 U/L Normal 39-130 [facility] Comment on above: Performed By: #### C BCA, LIVR, 62698-9, 18179-9, 5643-2, 30050-5, 3040-3, BMP #### [facility] ([id number]) [address] [place] [address] 67742 ALT [Catalytic activity/Vol] 12 U/L Normal 0-31 [facility] Comment on above: Performed By: #### C BCA, LIVR, 20835-6, 19777-7, 5643-2, 38446-0, 3040-3, BMP #### [facility] ([id number]) [address] [place] [address] 89188 AST [Catalytic activity/Vol] 18 U/L Normal 0-41 [facility] Comment on above: Performed By: #### C BCA, LIVR, 27646-5, 98654-4, 5643-2, 43696-7, 3040-3, BMP #### [facility] ([id number]) [address] [place] [address] 78775 Bilirubin [Mass/Vol] 0.3 mg/dL Normal 0.3-1.2 [facility] Comment on above: Performed By: #### C BCA, LIVR, 71090-2, 46338-5, 5643-2, 05041-0, 3040-3, BMP #### [facility] ([id number]) [address] [place] [address] 30573 Bilirubin.indirect [Mass/Vol] mg/dL Normal 0.0-0.4 [facility] Comment on above: Performed By: #### C BCA, LIVR, 33403-3, 06663-2, 5643-2, 29331-6, 3040-3, BMP #### [facility] ([id number]) [address] [place] [address] 45631 Protein [Mass/Vol] 7.0 g/dL Normal 6.0-8.0 [facility] Comment on above: Performed By: #### C BCA, LIVR, 39230-9, 83221-3, 5643-2, 79800-8, 3040-3, BMP #### [facility] ([id number]) [address] [place] [address] [place] [address] Lactate (P richard) [Moles/Vol]o n 06-15-2024 LACTATE W/REFLEX 1.1 mmol/L Normal 0.4-2.0 [facility] Comment on above: Result Comment: Result did not trigger repeat Lactate, re-order if needed. Performed By: #### C BCA, LIVR, 68670-9, 84712-4, 5643-2, 29159-3, 3040-3, BMP #### [facility] ([id number]) [address] [place] [address] 99145 MAGNESIUMon 06-15-2024 Magnesium [Mass/Vol] 2.1 mg/dL Normal 1.8-2.6 [facility] Comment on above: Performed By: #### C EZEQUIEL, LIVR, 11014-2, 73186-4, 5643-2, 04140-1, 0-3, BMP #### [facility] ([id number]) [address] [place] [address] 88520 CBC AND AUTO DIFFon 05-31- ABSOLUTE BASOPHIL 0.1 X10E9/L Normal 0.0-0.2 [facility] Comment on above: Performed By: #### C EZEQUIEL, LIVR, 81234-5, 62743-7, 5643-2, 88144-8, 0-3, BMP #### [facility] ([id number]) [address] [place] [address] 48931 ABSOLUTE NEUTROPHIL 7.2 X10E9/L High 1.5-6.6 [facility] Comment on above: Performed By: #### C EZEQUIEL, LIVR, 55404-3, 25381-8, 5643-2, 80313-6, 0-3, BMP #### [facility] ([id number]) [address] [place] [address] 54768 Basophils/100 WBC (Bld) 1.3 % Normal [facility] Comment on above: Performed By: #### C EZEQUIEL, LIVR, 57002-5, 78931-2, 5643-2, 78844-9, 0-3, BMP #### [facility] ([id number]) [address] [place] [address] 55784 Eosinophils (Bld) [#/Vol] 0.1 10*3/uL Normal 0.0-0.4 [facility] Comment on above: Performed By: #### C EZEQUIEL, LIVR, 90825-4, 55962-3, 5643-2, 68957-4, 3040-3, BMP #### [facility] ([id number]) [address] [place] [address] 39194 Eosinophils/100 WBC (Bld) 0.9 % Normal [facility] Comment on above: Performed By: #### C BCA, LIVR, 45718-6, 55651-1, 5643-2, 06072-7, 3040-3, BMP #### [facility] ([id number]) [address] [place] [address] 11170 Erythrocyte distribution width (RBC) [Ratio] 13.1 % Normal 11.5-15.0 [facility] Comment on above: Performed By: #### C EZEQUIEL, LIVR, 96986-9, 44211-5, 5643-2, 71588-3, 3040-3, BMP #### [facility] ([id number]) [address] [place] [address] 68011 Hematocrit (Bld) [Volume fraction] 40.2 % Normal 35-47 [facility] Comment on above: Performed By: #### C EZEQUIEL, LIVR, 42125-1, 64067-0, 5643-2, 22824-4, 3040-3, BMP #### [facility] ([id number]) [address] [place] [address] 22035 Hemoglobin (Bld) [Mass/Vol] 14.0 g/dL Normal 11.7-15.5 [facility] Comment on above: Performed By: #### C BCA, LIVR, 80389-0, 02641-3, 5643-2, 19792-7, 3040-3, BMP #### [facility] ([id number]) [address] [place] [address] 27415 Lymphocytes (Bld) [#/Vol] 2.7 10*3/uL Normal 1.0-3.5 [facility] Comment on above: Performed By: #### C BCA, LIVR, 65733-1, 03678-6, 5643-2, 24180-2, 3040-3, BMP #### [facility] ([id number]) [address] [place] [address] 39532 Lymphocytes/100 WBC (Bld) 24.0 % Normal [facility] Comment on above: Performed By: #### C BCA, LIVR, 69973-1, 98252-6, 5643-2, 97467-4, 3040-3, BMP #### [facility] ([id number]) [address] [place] [address] 74375 MCH (RBC) [Entitic mass] 34.0 pg Normal 27-34 [facility] Comment on above: Performed By: #### C BCA, LIVR, 11233-1, 48461-6, 5643-2, 12403-0, 3040-3, BMP #### [facility] ([id number]) [address] [place] [address] 75943 MCHC (RBC) [Mass/Vol] 34.7 g/dL Normal 32-36 [facility] Comment on above: Performed By: #### C BCA, LIVR, 89192-3, 38390-6, 5643-2, 89746-9, 3040-3, BMP #### [facility] ([id number]) [address] [place] [address] 55577 MCV (RBC) [Entitic vol] 98 fL Normal 80-100 [facility] Comment on above: Performed By: #### C BCA, LIVR, 14455-1, 24721-1, 5643-2, 79367-0, 3040-3, BMP #### [facility] ([id number]) [address] [place] [address] 75771 Monocytes (Bld) [#/Vol] 1.1 10*3/uL High 0-0.9 [facility] Comment on above: Performed By: #### C BCA, LIVR, 24201-2, 70352-2, 5643-2, 11714-6, 3040-3, BMP #### [facility] ([id number]) [address] [place] [address] 80380 Monocytes/100 WBC (Bld) 9.6 % Normal [facility] Comment on above: Performed By: #### Clara BCA, LIVR, 38522-0, 62190-8, 5643-2, 94989-5, 3040-3, BMP #### [facility] ([id number]) [address] [place] [address] 83292 Neutrophils/100 WBC (Bld) 64.2 % Normal [facility] Comment on above: Performed By: #### Clara BCA, LIVR, 64522-6, 53014-6, 5643-2, 61258-2, 3040-3, BMP #### [facility] ([id number]) [address] [place] [address] 45478 Platelet mean volume (Bld) [Entitic vol] 7.8 fL Normal 7-12 [facility] Comment on above: Performed By: #### Clara BCA, LIVR, 49567-6, 11940-2, 5643-2, 20581-5, 3040-3, BMP #### [facility] ([id number]) [address] [place] [address] 24180 Platelets (Bld) [#/Vol] 302 10*3/uL Normal 150-450 [facility] Comment on above: Performed By: #### Clara BCA, LIVR, 03512-9, 47787-4, 5643-2, 03579-9, 3040-3, BMP #### [facility] ([id number]) [address] [place] [address] 76618 RBC COUNT 4.11 X10E12/L Normal 3.80-5.20 [facility] Comment on above: Performed By: #### C BCA, LIVR, 41069-3, 59548-4, 5643-2, 65947-5, 3040-3, BMP #### [facility] ([id number]) [address] [place] [address] 33886 WBC (Bld) [#/Vol] 11.2 10*3/uL High 4.0-11.0 [facility] [facility] Comment on above: Performed By: #### C BCA, LIVR, 56996-5, 30605-7, 5643-2, 31981-8, 3040-3, BMP #### [facility] ([id number]) [address] [place] [address] 41866 COMPREHENSIVE METABOLIC PANE [facility] 05-31-2024 Albumin [Mass/Vol] 4.0 g/dL Normal 3.2-5.3 [facility] Comment on above: Performed By: #### C BCA, LIVR, 63868-9, 29637-1, 5643-2, 47472-5, 3040-3, BMP #### [facility] ([id number]) [address] [place] [address] 81784 ALP [Catalytic activity/Vol] 97 U/L Normal 39-130 [facility] Comment on above: Performed By: #### C BCA, LIVR, 99099-9, 18566-3, 5643-2, 86358-1, 3040-3, BMP #### [facility] ([id number]) [address] [place] [address] 74343 ALT [Catalytic activity/Vol] 12 U/L Normal 0-31 [facility] Comment on above: Performed By: #### C BCA, LIVR, 95552-0, 95608-3, 5643-2, 52796-5, 3040-3, BMP #### [facility] ([id number]) [address] [place] [address] 50094 Anion gap [Moles/Vol] 7 mmol/L Normal 5-15 [facility] Comment on above: Performed By: #### C BCA, LIVR, 15479-8, 10165-9, 5643-2, 56109-0, 3040-3, BMP #### [facility] ([id number]) [address] [place] [address] 33024 AST [Catalytic activity/Vol] 19 U/L Normal 0-41 [facility] Comment on above: Performed By: #### C BCA, LIVR, 54111-6, 23774-5, 5643-2, 50480-6, 3040-3, BMP #### [facility] ([id number]) [address] [place] [address] 54620 Bilirubin [Mass/Vol] 0.4 mg/dL Normal 0.3-1.2 [facility] Comment on above: Performed By: #### C BCA, LIVR, 09817-5, 24306-5, 5643-2, 84589-1, 3040-3, BMP #### [facility] ([id number]) [address] [place] [address] 06920 Calcium [Mass/Vol] 9.3 mg/dL Normal 8.5-10.5 [facility] Comment on above: Performed By: #### C BCA, LIVR, 50843-8, 56183-0, 5643-2, 78940-3, 3040-3, BMP #### [facility] ([id number]) [address] [place] [address] 61852 Chloride [Moles/Vol] 106 mmol/L Normal 98-109 [facility] Comment on above: Performed By: #### C BCA, LIVR, 18806-9, 05079-3, 5643-2, 38963-3, 3040-3, BMP #### [facility] ([id number]) [address] [place] [address] 64693 CO2 [Moles/Vol] 23 mmol/L Normal 22-32 [facility] Comment on above: Performed By: #### C BCA, LIVR, 01345-5, 82339-6, 5643-2, 15120-8, 3040-3, BMP #### [facility] ([id number]) [address] [place] [address] 17982 Creatinine [Mass/Vol] 0.60 mg/dL Normal 0.40-1.00 [facility] Comment on above: Result Comment: METH OD TRACEABLE TO IDMS STANDARD Performed By: #### C EZEQUIEL, LIVR, 53123-8, 47843-3, 5643-2, 35767-3, 0-3, BMP #### [facility] ([id number]) [address] [place] [address] [place] [address] eGFR (CKD-EPI) NON-RACE DEPENDENT >90 Normal >59 [facility] Comment on above: Result Comment: Reported eGFR is based on the CKD-EPI 2020 equation that does not use a race coefficient. Performed By: #### C BCA, LIVR, 08554-6, 65134-6, 5643-2, 60385-0, 0-3, BMP #### [facility] ([id number]) [address] [place] [address] 90047 Glucose [Mass/Vol] 101 mg/dL High 65-99 [facility] Comment on above: Performed By: #### C BCA, LIVR, 12186-7, 58055-0, 5643-2, 73095-3, 3040-3, BMP #### [facility] ([id number]) [address] [place] [address] 34289 Potassium [Moles/Vol] 3.6 mmol/L Normal 3.5-5.0 [facility] Comment on above: Performed By: #### C BCA, LIVR, 26352-6, 70649-9, 5643-2, 16748-9, 3040-3, BMP #### [facility] ([id number]) [address] [place] [address] 24565 Protein [Mass/Vol] 7.2 g/dL Normal 6.0-8.0 [facility] Comment on above: Performed By: #### C BCA, LIVR, 22586-7, 62161-0, 5643-2, 66193-3, 3040-3, BMP #### [facility] ([id number]) [address] [place] [address] 58917 Sodium [Moles/Vol] 136 mmol/L Normal 134-146 [facility] Comment on above: Performed By: #### C BCA, LIVR, 23240-9, 64315-2, 5643-2, 38267-5, 3040-3, BMP #### [facility] ([id number]) [address] [place] [address] 93356 Urea nitrogen [Mass/Vol] 11 mg/dL Normal 5-23 [facility] Comment on above: Performed By: #### C BCA, LIVR, 68291-0, 19048-6, 5643-2, 04035-7, 3040-3, BMP #### [facility] ([id number]) [address] [place] [address] 73581 LIPASEon 05-31-2024 Lipase [Catalytic activity/Vol] 104 U/L High 17-40 [facility] Comment on above: Performed By: #### C BCA, LIVR, 74515-5, 61418-3, 5643-2, 88296-3, 3040-3, BMP #### [facility] ([id number]) [address] [place] [address] 80197 Basic Metabolic Panelon 03-11 Anion gap [Moles/Vol] [...] 0.90 mg/dL [facility] Est, Glomarina Reyest Rate - PINF [facility] Comment on above: These results [...] [Moles/Vol] 8 mmol/L Low 9-16 [facility] [place] Comment on above: Performed By: #### C REBECA PAYNE, CP #### [facility] [address] [place] [address] Large Animal Husband[employer] Technician: Ion Jasso MD BUN/CRE Ratio 17 Normal - [facility] Comment on above: Performed By: #### C REBECA PAYNE, CP #### [facility] [address] [place] [address] [employer] Animal Husband[employer] Technician: Ion Jasso MD Calcium [Mass/Vol] 8.3 mg/dL Low 8.6-10.4 [facility] Comment on above: Performed By: #### C REBECA PAYNE, CP #### [facility] [address] [place], [place] [address] [employer] Animal Husband[employer] Technician: Ion Jasso MD Chloride [Moles/Vol] 108 mmol/L High 98-107 [facility] Comment on above: Performed By: #### C REBECA PAYNE, CP #### [facility] [address] [place] [address] [employer] Animal Husband[employer] Technician: Ion Jasso MD CO2 [Moles/Vol] 23 mmol/L Normal 20-31 [facility] Comment on above: Performed By: #### C REBECA PAYNE, CP #### [facility] [address] [place] [address] [employer] Husband[employer] Technician: Ion Jasso MD Creatinine [Mass/Vol] 0.6 mg/dL Normal 0.50-0.90 [facility] Comment on above: Performed By: #### C REBECA PAYNE, CP #### [facility] [address] [place] [address] Large Animal Husband[employer] Technician: Ion Jasso MD GFR/1.73 sq M.predicted among non-blacks MDRD (S/P/Bld) [Vol rate/Area] mL/min/{1.73_m2} Normal >60 [facility] Comment on above: Result Comment: [...] By: #### C REBECA PAYNE, CP #### [facility] [address] [place] [address] [employer] Husband[employer] Technician: Ion Jasso MD Glucose [Mass/Vol] 83 mg/dL Normal 74-99 [facility] Comment on above: Performed By: #### C REBECA PAYNE, CP #### [facility] [address] [place], [place] [id number] [employer] Technician: Ion Jasso MD Potassium [Moles/Vol] 4.0 mmol/L Normal 3.7-5.3 [facility] [place] Comment on above: Performed By: #### C REBECA PAYNE, CP #### [facility] [address] [place] [address] [employer] Husband[employer] Technician: Ion Jasso MD Sodium [Moles/Vol] 139 mmol/L Normal 136-145 [facility] Comment on above: Performed By: #### C REBECA PAYNE, CP #### [facility] [address] [place] [address] [employer] Technician: Ion Jasso MD Urea nitrogen [Mass/Vol] 10 mg/dL Normal 6-20 [facility] Comment on above: Performed By: #### C REBECA PAYNE, CP #### [facility] [address] [place] [address] [employer] Husband[employer] Technician: Ion Jasso MD CBC with Auto Differentialon [...] [facility] WBC other (Bld) [#/Vol] 9.3 [facility] CBC with Diffon 04-07-2024 Abs. Basophil 0.08 k/uL Normal 0.00-0.20 [facility] Comment on above: Performed By: #### R EJJOSHUA, CDP #### [facility] [address] [place] [address] [employer] Husband[employer] Technician: Ion Jasso MD Abs.Imm.Granulocyte 0.03 k/uL Normal 0.00-0.30 [facility] Comment on above: Performed By: #### R ANGELINE, CDP #### [address] [place], [place] [address] [employer] Technician: Ion Jasso MD Abs.Neutrophil (Seg) 5.87 k/uL Normal 1.50-8.10 [facility] Comment on above: Performed By: #### R ANGELINE, CDP #### [address] [place], [facility] [employer] Technician: Ion Jasso MD Basophils/100 WBC (Bld) 1 % Normal 0-2 [facility] Comment on above: Performed By: #### R ANGELINE, CDP #### [address] [place] [id number] [employer] Technician: Ion Jasso MD Eosinophils (Bld) [#/Vol] 0.13 10*3/uL Normal 0.00-0.44 [facility] Comment on above: Performed By: #### R ANGELINE, CDP #### [address] [place], [facility] [employer] Technician: Ion Jasso MD Eosinophils/100 WBC (Bld) 1 % Normal 1-4 [facility] Comment on above: Performed By: #### Dustin MARCUS, CDP #### [address] [place], [facility] [employer] Technician: Ion Jasso MD Erythrocyte distribution width (RBC) [Ratio] 13.1 % Normal 11.8-14.4 [facility] Comment on above: Performed By: #### R ANGELINE, CDP #### [address] [place] [address] [employer] Technician: Ion Jasso MD Hematocrit (Bld) [Volume fraction] 40.1 % Normal 36.3-47.1 [facility] Comment on above: Performed By: #### R ANGELINE, CDP #### [facility] [address] [place] [address] Dr[place], [place] [id number] [employer] Technician: Ion Jasso MD Hemoglobin (Bld) [Mass/Vol] 14.0 g/dL Normal 11.9-15.1 [facility] Comment on above: Performed By: #### R EJEC, CDP #### [address] [place], [facility] [employer] Technician: Ion Jasso MD Immature granulocytes/100 WBC (Bld) 0 % Normal 0 [facility] Comment on above: Performed By: #### R ANGELINE, CDP #### [address] [place], [place] 6[address]83 [employer] Technician: Ion Jasso MD Lymphocytes (Bld) [#/Vol] 2.39 10*3/uL Normal 1.10-3.70 [facility] Comment on above: Performed By: #### R EJEC, CDP #### [address] [place], [facility] [employer] Technician: Ion Jasso MD Lymphocytes/100 WBC (Bld) 26 % Normal 24-43 [facility] Comment on above: Performed By: #### R ANGELINE, CDP #### [address] [place] [address] [employer] Technician: Ion Jasso MD MCH (RBC) [Entitic mass] 33.9 pg High 25.2-33.5 [facility] Comment on above: Performed By: #### R NAYELYEC, CDP #### [address] [place] [address] [employer] Technician: Ion Jasso MD MCHC (RBC) [Mass/Vol] 34.9 g/dL High 28.4-34.8 [facility] [place] Comment on above: Performed By: #### R EJEC, CDP #### [address] [place], [place] [id number] [employer] Technician: Ion Jasso MD MCV (RBC) [Entitic vol] 97.1 fL Normal 82.6-102.9 [facility] Comment on above: Performed By: #### R EJEC, CDP #### [address] [place], [place] 5927983 [employer] Technician: Ion Jasso MD Monocytes (Bld) [#/Vol] 0.76 10*3/uL Normal 0.10-1.20 [facility] Comment on above: Performed By: #### R ANGELINE, CDP #### [address] [place], [facility] [employer] Technician: Ion Jasso MD Monocytes/100 WBC (Bld) 8 % Normal 3-12 [facility] Comment on above: Performed By: #### R ANGELINE, CDP #### [address] [place], [facility] [employer] Technician: Ion Jasso MD Neutrophil (Seg) 64 % Normal 36-65 [facility] Comment on above: Performed By: #### R ANGELINE, CDP #### [address] [place], [place] [phone] [employer] Technician: Ion Jasso MD NRBC Automated 0.0 per 100 WBC Normal 0.0 [facility] Comment on above: Performed By: #### R ANGELINE, CDP #### [address] [place], [place] [phone] [employer] Technician: Ion Jasso MD Platelet mean volume (Bld) [Entitic vol] 10.6 fL Normal 8.1-13.5 [facility] Comment on above: Performed By: #### R ANGELINE, CDP #### [address] [place] [address] [employer] Technician: Ion Jasso MD Platelets (Bld) [#/Vol] 267 10*3/uL Normal 138-453 [facility] Comment on above: Performed By: #### R NAYELYEC, CDP #### [facility] [address] [place] [address] [employer] Technician: Ion Jasso MD RBC (Bld) [#/Vol] 4.13 10*6/uL Normal 3.95-5.11 [facility] Comment on above: Performed By: #### R NAYELYEC, CDP #### [facility] [address] [place] [address] [employer] Technician: Ion Jasso MD WBC (Bld) [#/Vol] 9.3 10*3/uL Normal 3.5-11.3 [facility] Comment on above: Performed By: #### R NAYELYEC, CDP #### [address] [place], [place] [phone] [employer] Technician: Ion Jasso MD CT ABDOMEN PELVIS W [...] Errol Tran MD 04/07/24 Final result Normal [facility] CT Abdomen and Pelvis W cont rast Roxana 04-07-2024 1. No acute intra-abdominal or pelvic abnormalities are noted. 2. Stable mild dilatation of the extrahepatic biliary tree and pancreatic duct. 3. Status post cholecystectomy. [facility] RIS CONSOLIDATED EXAMINATION: CT OF THE ABDOMEN [...] lytic or blastic osseous lesions are identified. [facility] RIS CONSOLIDATED Errol Tran MD - 04/07/2024 [...] activity/Vol] 30 U/L 10 - 35 U/L [facility] Bilirubin [Mass/Vol] mg/dL 0.00 - 1.20 mg/dL [...] Lipase [Catalytic activity/Vol] 266 U/L High 13-60 [facility] Comment on above: Performed By: #### C DP, LIP, CP #### [facility] [address] [place] [address] [employer] Technician: Ion Jasso MD Liver Profileon 04-07-2024 Albumin [Mass/Vol] 3.9 g/dL Normal 3.5-5.2 [facility] Comment on above: Performed By: #### C DP, LIP, CP #### [facility] [address] [place], [place] [id number] [employer] Technician: Ion Jasso MD Albumin/Glob Ratio 1.7 Normal 1.0-2.5 [facility] Comment on above: Performed By: #### C DP, LIP, CP #### [facility] [address] [place], [place] 5537183 [employer] Technician: Ion Jasso MD Alkaline Phos 119 U/L High 35-104 [facility] Comment on above: Performed By: #### C DP, LIP, CP #### [facility] [address] [place], [place] 8949983 [employer] Technician: Ion Jasso MD ALT [Catalytic activity/Vol] 11 U/L Normal 10-35 [facility] Comment on above: Performed By: #### C DP, LIP, CP #### [facility] [address] [place] [address] [employer] Technician: Ion Jasso MD AST [Catalytic activity/Vol] 30 U/L Normal 10-35 [facility] Comment on above: Performed By: #### C DP LIP, CP #### [facility] [address] [place] [address] Dr. [place], [place] [phone] [employer] Technician: Ion Jasso MD Bilirubin [Mass/Vol] mg/dL Normal 0.00-1.20 [facility] Comment on above: Performed By: #### C DP LIP, CP #### [address] [place] [address] [employer] Technician: Ion Jasso MD Bilirubin, Indirect Can not be calculated Normal 0.0-1 .0 [facility] Comment on above: Performed By: #### C ELMER LIP, CP #### [address] [place] [address] [employer] Husband[employer] Technician: Ion Jasso MD Bilirubin.indirect [Mass/Vol] mg/dL Normal 0.00-0.30 [facility] Comment on above: Performed By: #### C REBECA PAYNE, CP #### [address] [place] [address] [employer] Technician: Ion Jasso MD Protein [Mass/Vol] 6.1 g/dL Low 6.6-8.7 [facility] Comment on above: Performed By: #### C ELMER LIP, CP #### [address] [place] [address] [employer] Technician: Ion Jasso MD No Panel Informationon 04-07 Interpretation and review of laboratory results Abnormal [facility] Specimen Rejectionon 025 Reason for rejection Unable to perform testing: Specimen hemolyzed. Normal [facility] Comment on above: Performed By: #### R EJEC, CDP #### [facility] [address] [place] [address] [place] [address] [employer] Technician: Ion Jasso MD Source of sample .BLOOD Normal [facility] Comment on above: Performed By: #### R EJEC, CDP #### [facility] [address] [place] [address] [employer] Husband[employer] Technician: Ion Jasso MD Test ordered LIP,LIVP, BMP Normal [facility] Comment on above: Performed By: #### R EJEC, CDP #### [facility] [address] [place] [address] [employer] Husband[employer] Technician: Ion Jasso MD Urinalysison 04-07-2024 Bilirubin Ql (U) Negative NEGATIVE [facility] Clarity (U) Clear Clear [facility] Nitrite Ql (U) Negative NEGATIVE [facility] pH (U) 5.5 [pH] 5.0 - 9.0 [facility] Protein (U) [Mass/Vol] Negative NEGAT MATTHIAS mg/dL [facility] Specific gravity (U) [Rel density] 1.010 1.010 - 1.020 [facility] Urobilinogen Qn (U) Normal 0.0 - 1. 0 EU/dL [facility] Urinalysis, Routineon 2024 Bilirubin, SemiQt,Ur Negative Normal NEG [facility] Comment on above: Performed By: #### U A #### [facility] [address] [place] [address] [employer] Husband[employer] Technician: Ion Jasso MD Blood, Urine Negative Normal NEG [facility] Comment on above: Performed By: #### U A #### [facility] [address] [place] [address] [employer] Technician: Ion Jasso MD Clarity (U) Clear Normal CLEAR [facility] Comment on above: Performed By: #### U A #### [facility] [address] [place] [address] [employer] Technician: Ion Jasso MD Color (U) Yellow Normal YEL [facility] Comment on above: Performed By: #### U A #### [facility] [address] [place] [address] Dr. [place], [place] 1249083 [employer] Technician: Ion Jasso MD Glucose Ql (U) Negative Normal NEG [facility] Comment on above: Performed By: #### U A #### [facility] [address] [place] [address] [place] [address] [employer] Husband[employer] Technician: Ion Jasso MD Ketones Ql (U) Negative Normal NEG [facility] Comment on above: Performed By: #### U A #### [facility] [address] [place] [address] [place] [address] [employer] Husband[employer] Technician: Ion Jasso MD Leukocyte esterase Test strip Ql (U) Negative Normal NEG [facility] Comment on above: Performed By: #### U A #### [facility] [address] [place] [address] [place] [address] [employer] Husband[employer] Technician: Ion Jasso MD Nitrite,Ur Negative Normal NEG [facility] Comment on above: Performed By: #### U A #### [facility] [address] [place] [address] [place] [address] [employer] Husband[employer] Technician: Ion Jasso MD PH,Ur 5.5 Normal 5.0-9.0 [facility] Comment on above: Performed By: #### U A #### [facility] [address] [place] [address] Dr. [place], [place] 4591483 [employer] Technician: Ion Jasso MD Protein Ql (U) Negative Normal NEG [facility] Comment on above: Performed By: #### U A #### [facility] [address] [place] [address] [employer] Husband[employer] Technician: Ion Jasso MD Spec. [place],Ur 1.010 Normal 1.010-1.02 0 [facility] Comment on above: Performed By: #### U A #### [facility] [address] [place], [place] 6499883 [employer] Husband[employer] Technician: Ion Jasso MD Urobilinogen,Ur Normal Normal 0.0-1.0 [facility] Comment on above: Performed By: #### U A #### [facility] [address] [place] [address] [place] [address] [employer] Husband[employer] Technician: Ion Jasso MD CBC AND AUTO DIFFon 03-18-19 25 ABSOLUTE BASOPHIL 0.1 X10E9/L Normal 0.0-0.2 [facility] Comment on above: Performed By: #### C BCA, LIVR, 62001-5, 54732-3, 5643-2, 51685-8, 3040-3, BMP #### [facility] ([id number]) [address] [place] [address] ABSOLUTE NEUTROPHIL 7.7 X10E9/L High 1.5-6.6 [facility] Comment on above: Performed By: #### C BCA, LIVR, 88753-6, 21735-1, 5643-2, 43980-6, 3040-3, BMP #### [facility] ([id number]) [address] [place] [address] 67518 Basophils/100 WBC (Bld) 0.8 % Normal [facility] Comment on above: Performed By: #### C BCA, LIVR, 60522-1, 75388-6, 5643-2, 72315-2, 3040-3, BMP #### [facility] ([id number]) [address] [place] [address] 21471 Eosinophils (Bld) [#/Vol] 0.1 10*3/uL Normal 0.0-0.4 [facility] Comment on above: Performed By: #### C BCA, LIVR, 02310-1, 81473-1, 5643-2, 87365-9, 3040-3, BMP #### [facility] ([id number]) [address] [place] [address] 84080 Eosinophils/100 WBC (Bld) 0.5 % Normal [facility] Comment on above: Performed By: #### C BCA, LIVR, 77098-0, 86487-7, 5643-2, 24294-8, 3040-3, BMP #### [facility] ([id number]) [address] [place] [address] 21534 Erythrocyte distribution width (RBC) [Ratio] 13.5 % Normal 11.5-15.0 [facility] Comment on above: Performed By: #### C BCA, LIVR, 41209-0, 48888-6, 5643-2, 98624-4, 3040-3, BMP #### [facility] ([id number]) [address] [place] [address] 62487 Hematocrit (Bld) [Volume fraction] 48.7 % High 35-47 [facility] Comment on above: Performed By: #### C BCA, LIVR, 79161-8, 47516-0, 5643-2, 60964-0, 3040-3, BMP #### [facility] ([id number]) [address] [place] [address] 43069 Hemoglobin (Bld) [Mass/Vol] 16.5 g/dL High 11.7-15.5 [facility] Comment on above: Performed By: #### C BCA, LIVR, 36133-5, 01380-2, 5643-2, 28885-7, 3040-3, BMP #### [facility] ([id number]) [address] [place] [address] 74140 Lymphocytes (Bld) [#/Vol] 2.0 10*3/uL Normal 1.0-3.5 [facility] Comment on above: Performed By: #### C EZEQUIEL, LIVR, 47624-3, 36777-7, 5643-2, 09694-7, 3040-3, BMP #### [facility] ([id number]) [address] [place] [address] 14112 Lymphocytes/100 WBC (Bld) 19.0 % Normal [facility] Comment on above: Performed By: #### C EZEQUIEL, LIVR, 24193-9, 75764-2, 5643-2, 81599-4, 0-3, BMP #### [facility] ([id number]) [address] [place] [address] 94494 MCH (RBC) [Entitic mass] 33.5 pg Normal 27-34 [facility] Comment on above: Performed By: #### C EZEQUIEL, LIVR, 94218-2, 71242-5, 5643-2, 30844-4, 0-3, BMP #### [facility] ([id number]) [address] [place] [address] 31753 MCHC (RBC) [Mass/Vol] 33.9 g/dL Normal 32-36 [facility] Comment on above: Performed By: #### C BCA, LIVR, 58832-5, 75898-8, 5643-2, 02625-3, 3040-3, BMP #### [facility] ([id number]) [address] [place] [address] 29912 MCV (RBC) [Entitic vol] 99 fL Normal 80-100 [facility] Comment on above: Performed By: #### C BCA, LIVR, 57545-3, 38944-2, 5643-2, 63166-4, 3040-3, BMP #### [facility] ([id number]) [address] [place] [address] 05828 Monocytes (Bld) [#/Vol] 0.8 10*3/uL Normal 0-0.9 [facility] Comment on above: Performed By: #### C BCA, LIVR, 61486-8, 26876-6, 5643-2, 76415-5, 3040-3, BMP #### [facility] ([id number]) [address] [place] [address] 49738 Monocytes/100 WBC (Bld) 7.4 % Normal [facility] Comment on above: Performed By: #### Clara NIEVES, LIVR, 06090-3, 42403-7, 5643-2, 27243-0, 3040-3, BMP #### [facility] ([id number]) [address] [place] [address] 24181 Neutrophils/100 WBC (Bld) 72.3 % Normal [facility] Comment on above: Performed By: #### C BCA, LIVR, 47637-6, 88047-4, 5643-2, 29760-0, 3040-3, BMP #### [facility] ([id number]) [address] [place] [address] [place] [address] Platelet mean volume (Bld) [Entitic vol] 8.1 fL Normal 7-12 [facility] Comment on above: Performed By: #### C BCA, LIVR, 86374-7, 52445-9, 5643-2, 14967-5, 3040-3, BMP #### [facility] ([id number]) [address] [place] [address] 61266 Platelets (Bld) [#/Vol] 304 10*3/uL Normal 150-450 [facility] Comment on above: Performed By: #### C BCA, LIVR, 71399-6, 51798-9, 5643-2, 89075-8, 3040-3, BMP #### [facility] ([id number]) [address] [place] [address] 26184 RBC COUNT 4.92 X10E12/L Normal 3.80-5.20 [facility] Comment on above: Performed By: #### C BCA, LIVR, 73763-3, 41943-7, 5643-2, 19354-8, 3040-3, BMP #### [facility] ([id number]) [address] [place] [address] 59590 WBC (Bld) [#/Vol] 10.7 10*3/uL Normal 4.0-11.0 [facility] Comment on above: Performed By: #### C BCA, LIVR, 47838-4, 61267-0, 5643-2, 19966-5, 3040-3, BMP #### [facility] ([id number]) [address] [place] [address] 07152 COMPREHENSIVE METABOLIC PANE Nimesh 03-18-2024 Albumin [Mass/Vol] 4.7 g/dL Normal 3.2-5.3 [facility] Comment on above: Performed By: #### C BCA, LIVR, 55705-7, 09381-0, 5643-2, 97847-6, 3040-3, BMP #### [facility] ([id number]) [address] [place] [address] 48529 ALP [Catalytic activity/Vol] 153 U/L High 39-130 [facility] Comment on above: Performed By: #### C BCA, LIVR, 60838-0, 20121-2, 5643-2, 56982-7, 3040-3, BMP #### [facility] ([id number]) [address] [place] [address] ALT [Catalytic activity/Vol] 18 U/L Normal 0-31 [facility] Comment on above: Performed By: #### C BCA, LIVR, 81669-6, 28509-9, 5643-2, 89255-0, 3040-3, BMP #### [facility] ([id number]) [address] [place] [address] 18865 Anion gap [Moles/Vol] 9 mmol/L Normal 5-15 [facility] Comment on above: Performed By: #### C BCA, LIVR, 91535-4, 00554-9, 5643-2, 15367-8, 3040-3, BMP #### [facility] ([id number]) [address] [place] [address] 86378 AST [Catalytic activity/Vol] 26 U/L Normal 0-41 [facility] Comment on above: Performed By: #### C BCA, LIVR, 74283-0, 17535-3, 5643-2, 38430-5, 3040-3, BMP #### [facility] ([id number]) [address] [place] [address] 47751 Bilirubin [Mass/Vol] 0.8 mg/dL Normal 0.3-1.2 [facility] Comment on above: Performed By: #### C BCA, LIVR, 06694-4, 55969-9, 5643-2, 38396-1, 3040-3, BMP #### [facility] ([id number]) [address] [place] [address] 40939 Calcium [Mass/Vol] 10.9 mg/dL High 8.5-10.5 [facility] Comment on above: Performed By: #### C BCA, LIVR, 81717-2, 36231-1, 5643-2, 14620-0, 3040-3, BMP #### [facility] ([id number]) [address] [place] [address] 79679 Chloride [Moles/Vol] 104 mmol/L Normal 98-109 [facility] Comment on above: Performed By: #### C BCA, LIVR, 83348-1, 01340-5, 5643-2, 96238-1, 3040-3, BMP #### [facility] ([id number]) [address] [place] [address] 17263 CO2 [Moles/Vol] 27 mmol/L Normal 22-32 [facility] Comment on above: Performed By: #### C BCA, LIVR, 17000-3, 74957-0, 5643-2, 38079-3, 3040-3, BMP #### [facility] ([id number]) [address] [place] [address] 33576 Creatinine [Mass/Vol] 0.78 mg/dL Normal 0.40-1.00 [facility] Comment on above: Result Comment: METH OD TRACEABLE TO IDMS STANDARD Performed By: #### C BCA, LIVR, 33296-9, 91161-8, 5643-2, 96629-2, 3040-3, BMP #### [facility] ([id number]) [address] [place] [address] 97317 eGFR (CKD-EPI) NON-RACE DEPENDENT >90 Normal >59 [facility] Comment on above: Result Comment: Reported eGFR is based on the CKD-EPI 2020 equation that does not use a race coefficient. Performed By: #### C BCA, LIVR, 01708-0, 12738-2, 5643-2, 59774-6, 3040-3, BMP #### [facility] ([id number]) [address] [place] [address] 12954 Glucose [Mass/Vol] 103 mg/dL High 65-99 [facility] Comment on above: Performed By: #### C BCA, LIVR, 64735-3, 37899-5, 5643-2, 08608-2, 3040-3, BMP #### [facility] ([id number]) [address] [place] [address] 83667 Potassium [Moles/Vol] 4.5 mmol/L Normal 3.5-5.0 [facility] Comment on above: Performed By: #### C BCA, LIVR, 41865-9, 58979-2, 5643-2, 71693-2, 3040-3, BMP #### [facility] ([id number]) [address] [place] [address] 09109 Protein [Mass/Vol] 8.2 g/dL High 6.0-8.0 [facility] Comment on above: Performed By: #### C BCA, LIVR, 07335-8, 14034-7, 5643-2, 38334-0, 3040-3, BMP #### [facility] ([id number]) [address] [place] [address] 25683 Sodium [Moles/Vol] 140 mmol/L Normal 134-146 [facility] Comment on above: Performed By: #### C BCA, LIVR, 20946-1, 45053-6, 5643-2, 65799-5, 3040-3, BMP #### [facility] ([id number]) [address] [place] [address] 31187 Urea nitrogen [Mass/Vol] 11 mg/dL Normal 5-23 [facility] Comment on above: Performed By: #### C BCA, LIVR, 40554-9, 55285-9, 5643-2, 93326-3, 3040-3, BMP #### [facility] ([id number]) [address] [place] [address] ABDOMEN AND PELVIS W CONT on [...] Cano MD on 03/18/2024 3:38 PM Normal [facility] LIPASEon 03-18-2024 Lipase [Catalytic activity/Vol] 73 U/L High 17-40 [facility] Comment on above: Performed By: #### C BCA, LIVR, 92301-5, 05439-3, 5643-2, 52699-1, 3040-3, [facility] #### [facility] ([id number]) [address] [place] [address], [place] [address] UPPER EUSon 01-19-2024 [facility] Patient Name: Chioma Rainey Procedure Date: 01/19/2024 9:15 AM Date of : 1970 Admit Type: Outpatient Age: 53 Room: EUS Proc Room 01 Gender: Female Note Status: Finalized Attending MD: Sabrina Dee MD, MPH, [id number] Procedure: Upper EUS Indications: Celiac plexus block [...] o (more content not included)... LAB, [facility] Radiology Study observation (narrative) [facility] CBC AND AUTO DIFFon 01-14-20 24 ABSOLUTE BASOPHIL 0.1 X10E9/L Normal 0.0-0.2 [facility] Comment on above: Performed By: #### C BCA, LIVR, 93400-6, 74501-7, 5643-2, 38291-4, 3040-3, BMP #### [facility] ([id number]) [address] [place] [address] 48399 ABSOLUTE NEUTROPHIL 6.8 X10E9/L High 1.5-6.6 [facility] Comment on above: Performed By: #### C BCA, LIVR, 89831-7, 77628-9, 5643-2, 83308-3, 3040-3, BMP #### [facility] ([id number]) [address] [place] [address] 60322 Basophils/100 WBC (Bld) 0.8 % Normal [facility] Comment on above: Performed By: #### C BCA, LIVR, 50102-9, 92019-6, 5643-2, 33261-7, 3040-3, BMP #### [facility] ([id number]) [address] [place] [address] 81803 Eosinophils (Bld) [#/Vol] 0.1 10*3/uL Normal 0.0-0.4 [facility] Comment on above: Performed By: #### C BCA, LIVR, 82206-2, 96668-7, 5643-2, 43021-9, 3040-3, BMP #### [facility] ([id number]) [address] [place] [address] 26247 Eosinophils/100 WBC (Bld) 1.2 % Normal [facility] Comment on above: Performed By: #### C BCA, LIVR, 27824-7, 12162-3, 5643-2, 62975-1, 3040-3, BMP #### [facility] ([id number]) [address] [place] [address] 10175 Erythrocyte distribution width (RBC) [Ratio] 12.9 % Normal 11.5-15.0 [facility] Comment on above: Performed By: #### C BCA, LIVR, 41718-5, 96325-5, 5643-2, 66856-9, 3040-3, BMP #### [facility] ([id number]) [address] [place] [address] 67567 Hematocrit (Bld) [Volume fraction] 42.2 % Normal 35-47 [facility] Comment on above: Performed By: #### C BCA, LIVR, 70367-0, 09220-6, 5643-2, 40635-2, 3040-3, BMP #### [facility] ([id number]) [address] [place] [id number] Hemoglobin (Bld) [Mass/Vol] 14.5 g/dL Normal 11.7-15.5 [facility] Comment on above: Performed By: #### C BCA, LIVR, 50648-1, 83159-5, 5643-2, 60567-6, 3040-3, BMP #### [facility] [facility] ([id number]) [address] [place] [address] 42748 Lymphocytes (Bld) [#/Vol] 2.8 10*3/uL Normal 1.0-3.5 [facility] Comment on above: Performed By: #### C BCA, LIVR, 39523-7, 04645-8, 5643-2, 05992-1, 3040-3, BMP #### [facility] ([id number]) [address] [place] [address] 41276 Lymphocytes/100 WBC (Bld) 26.2 % Normal [facility] Comment on above: Performed By: #### C BCA, LIVR, 30301-2, 88466-1, 5643-2, 42869-7, 3040-3, BMP #### [facility] ([id number]) [address] [place] [address] 24353 MCH (RBC) [Entitic mass] 33.8 pg Normal 27-34 [facility] Comment on above: Performed By: #### C BCA, LIVR, 38699-8, 05738-6, 5643-2, 04404-5, 3040-3, BMP #### [facility] ([id number]) [address] [place] [address] 23928 MCHC (RBC) [Mass/Vol] 34.3 g/dL Normal 32-36 [facility] Comment on above: Performed By: #### C BCA, LIVR, 03890-6, 54304-8, 5643-2, 32183-5, 3040-3, BMP #### [facility] ([id number]) [address] [place] [address] 98128 MCV (RBC) [Entitic vol] 98 fL Normal 80-100 [facility] Comment on above: Performed By: #### Clara BCA, LIVR, 51739-0, 98124-7, 5643-2, 31871-4, 3040-3, BMP #### [facility] ([id number]) [address] [place] [address] 15463 Monocytes (Bld) [#/Vol] 0.9 10*3/uL Normal 0-0.9 [facility] Comment on above: Performed By: #### C BCA, LIVR, 70082-6, 03745-2, 5643-2, 38278-1, 3040-3, BMP #### [facility] ([id number]) [address] [place] [address] 98573 Monocytes/100 WBC (Bld) 8.2 % Normal [facility] Comment on above: Performed By: #### C BCA, LIVR, 67961-0, 84202-8, 5643-2, 52859-9, 3040-3, BMP #### [facility] ([id number]) [address] [place] [address] 12153 Neutrophils/100 WBC (Bld) 63.6 % Normal [facility] Comment on above: Performed By: #### C BCA, LIVR, 13631-2, 50939-8, 5643-2, 61339-8, 3040-3, BMP #### [facility] ([id number]) [address] [place] [address] 95332 Platelet mean volume (Bld) [Entitic vol] 8.2 fL Normal 7-12 [facility] Comment on above: Performed By: #### C BCA, LIVR, 25242-4, 39212-5, 5643-2, 41789-1, 3040-3, BMP #### [facility] ([id number]) [address] [place] [address] 90162 Platelets (Bld) [#/Vol] 259 10*3/uL Normal 150-450 [facility] Comment on above: Performed By: #### C BCA, LIVR, 40399-2, 08900-9, 5643-2, 83319-8, 3040-3, BMP #### [facility] ([id number]) [address] [place] [address] 12286 RBC COUNT 4.29 X10E12/L Normal 3.80-5.20 [facility] Comment on above: Performed By: #### C BCA, LIVR, 49368-6, 15203-7, 5643-2, 15659-3, 3040-3, BMP #### [facility] ([id number]) [address] [place] [address] 07466 WBC (Bld) [#/Vol] 10.7 10*3/uL Normal 4.0-11.0 [facility] Comment on above: Performed By: #### C BCA, LIVR, 46585-6, 04762-1, 5643-2, 74443-3, 3040-3, BMP #### [facility] ([id number]) [address] [place] [address] 29315 COMPREHENSIVE METABOLIC PANE [facility] 01-14-2024 Albumin [Mass/Vol] 4.2 g/dL Normal 3.2-5.3 [facility] Comment on above: Performed By: #### C BCA, LIVR, 94915-9, 08376-9, 5643-2, 55610-9, 3040-3, BMP #### [facility] ([id number]) [address] [place] [address] 42593 ALP [Catalytic activity/Vol] 136 U/L High 39-130 [facility] Comment on above: Performed By: #### C BCA, LIVR, 12454-4, 95714-2, 5643-2, 80963-2, 3040-3, BMP #### [facility] ([id number]) [address] [place] [address] 92123 ALT [Catalytic activity/Vol] 18 U/L Normal 0-31 [facility] Comment on above: Performed By: #### C BCA, LIVR, 93342-5, 44164-2, 5643-2, 51091-9, 3040-3, BMP #### [facility] ([id number]) [address] [place] [address] 80213 Anion gap [Moles/Vol] 10 mmol/L Normal 5-15 [facility] Comment on above: Performed By: #### C BCA, LIVR, 77502-9, 48429-0, 5643-2, 99998-5, 3040-3, BMP #### [facility] ([id number]) [address] [place] [address] 14155 AST [Catalytic activity/Vol] 21 U/L Normal 0-41 [facility] Comment on above: Performed By: #### C BCA, LIVR, 14373-8, 27065-2, 5643-2, 78495-0, 3040-3, BMP #### [facility] ([id number]) [address] [place] [address] 94934 Bilirubin [Mass/Vol] 0.5 mg/dL Normal 0.3-1.2 [facility] Comment on above: Performed By: #### C BCA, LIVR, 65069-2, 00828-8, 5643-2, 25903-3, 3040-3, BMP #### [facility] ([id number]) [address] [place] [address] 52542 Calcium [Mass/Vol] 9.6 mg/dL Normal 8.5-10.5 [facility] Comment on above: Performed By: #### C BCA, LIVR, 24463-2, 76038-5, 5643-2, 68298-1, 3040-3, BMP #### [facility] ([id number]) [address] [place] [address] 14696 Chloride [Moles/Vol] 105 mmol/L Normal 98-109 [facility] Comment on above: Performed By: #### C BCA, LIVR, 58199-7, 99811-6, 5643-2, 47567-3, 3040-3, BMP #### [facility] ([id number]) [address] [place] [address] 68673 CO2 [Moles/Vol] 22 mmol/L Normal 22-32 [facility] Comment on above: Performed By: #### C BCA, LIVR, 38268-5, 29670-7, 5643-2, 68351-6, 3040-3, BMP #### [facility] ([id number]) [address] [place] [address] 73653 Creatinine [Mass/Vol] 0.74 mg/dL Normal 0.40-1.00 [facility] Comment on above: Result Comment: METH OD TRACEABLE TO IDMS STANDARD Performed By: #### C BCA, LIVR, 44967-6, 48888-0, 5643-2, 32135-2, 3040-3, BMP #### [facility] ([id number]) [address] [place] [address] 86045 eGFR (CKD-EPI) NON-RACE DEPENDENT >90 Normal >59 [facility] Comment on above: Result Comment: Reported eGFR is based on the CKD-EPI 1 equation that does not use a race coefficient. Performed By: #### C BCA, LIVR, 25159-2, 86941-0, 5643-2, 86402-6, 3040-3, BMP #### [facility] ([id number]) [address] [place] [address] 52035 Glucose [Mass/Vol] 93 mg/dL Normal 65-99 [facility] Comment on above: Performed By: #### C BCA, LIVR, 81779-6, 34554-2, 5643-2, 18603-3, 3040-3, BMP #### [facility] ([id number]) [address] [place] [address] 12699 Potassium [Moles/Vol] 3.6 mmol/L Normal 3.5-5.0 [facility] Comment on above: Performed By: #### C BCA, LIVR, 42116-1, 99343-1, 5643-2, 57104-6, 3040-3, BMP #### [facility] ([id number]) [address] [place] [address] 21794 Protein [Mass/Vol] 7.3 g/dL Normal 6.0-8.0 [facility] Comment on above: Performed By: #### C BCA, LIVR, 54964-3, 31695-2, 5643-2, 25596-1, 3040-3, BMP #### [facility] ([id number]) [address] [place] [address] 01016 Sodium [Moles/Vol] 137 mmol/L Normal 134-146 [facility] Comment on above: Performed By: #### C BCA, LIVR, 99492-9, 54998-3, 5643-2, 87580-1, 3040-3, BMP #### [facility] ([id number]) [address] [place] [address] 96406 Urea nitrogen [Mass/Vol] 7 mg/dL Normal 5-23 [facility] Comment on above: Performed By: #### C BCA, LIVR, 13735-3, 85843-3, 5643-2, 50873-2, 3040-3, BMP #### [facility] ([id number]) [address] [place] [address] ABDOMEN AND PELVIS W CONT on [...] Rodgers MD on 01/14/2024 5:01 PM Normal [facility] LIPASEon 01-14-2024 Lipase [Catalytic activity/Vol] 72 U/L High 17-40 [facility] Comment on above: Performed By: #### C BCA, LIVR, 94812-4, 11133-8, 5643-2, 75276-5, 3040-3, BMP #### [facility] ([id number]) [address] [place] [address] 34202 MAGNESIUMon 01-14-2024 Magnesium [Mass/Vol] 2.2 mg/dL Normal 1.8-2.6 [facility] Comment on above: Performed By: #### C BCA, LIVR, 17884-1, 29242-4, 5643-2, 27254-1, 3040-3, BMP #### [facility] ([id number]) [address] [place] [address] 07332 URN MACROSCOPIC NURon 2023 BILIRUBIN JERE Negative Normal NEG [facility] Comment on above: Performed By: #### C BCA, LIVR, 66465-0, 77517-9, 5643-2, 65452-7, 3040-3, BMP #### [facility] ([id number]) [address] [place] [address] [place] [address] BLOOD/HGB JERE Negative Normal NEG [facility] Comment on above: Performed By: #### C BCA, LIVR, 44112-6, 22446-9, 5643-2, 11240-8, 3040-3, BMP #### [facility] ([id number]) [address] [place] [address] 83102 GLUCOSE JERE Negative Normal NEG [facility] Comment on above: Performed By: #### C BCA, LIVR, 25892-1, 69728-6, 5643-2, 65394-0, 3040-3, BMP #### [facility] ([id number]) [address] [place] [address] [place] [address] KETONES JERE Negative Normal NEG [facility] Comment on above: Performed By: #### C BCA, LIVR, 04273-0, 07795-7, 5643-2, 17908-5, 3040-3, BMP #### [facility] ([id number]) [address] [place] [address] [place] [address] LEUKOCYTE ESTERASE JERE Negative Normal NEG [facility] Comment on above: Performed By: #### C BCA, LIVR, 29595-7, 13952-8, 5643-2, 00810-7, 3040-3, BMP #### [facility] ([id number]) [address] [place] [address] [place] [address] NITRITE JERE Negative Normal NEG [facility] Comment on above: Performed By: #### C BCA, LIVR, 35605-3, 20096-2, 5643-2, 67030-9, 3040-3, BMP #### [facility] ([id number]) [address] [place] [address] 19676 PH JERE 5.5 Normal 5.0-8.5 [facility] Comment on above: Performed By: #### C BCA, LIVR, 27679-1, 40687-9, 5643-2, 56951-3, 3040-3, BMP #### [facility] ([id number]) [address] [place] [address] 48401 PROTEIN JERE Negative Normal NEG [facility] Comment on above: Performed By: #### C BCA, LIVR, 58351-1, 40344-2, 5643-2, 08988-4, 3040-3, BMP #### [facility] ([id number]) [address] [place] [address] 00335 SPECIFIC GRAVITY JERE >=1.030 Normal 1.003-1 .03 5 [facility] Comment on above: Performed By: #### C BCA, LIVR, 80241-4, 27534-9, 5643-2, 90258-5, 3040-3, BMP #### [facility] ([id number]) [address] [place] [address] 99577 UROBILINOGEN JERE 0.2 eu/dL Normal <1.1 [facility] Comment on above: Performed By: #### C BCA, LIVR, 99382-7, 47892-8, 5643-2, 44258-3, 3040-3, BMP #### [facility] ([id number]) [address] [place] [address] 90986 CBC with Auto Differentialon 01-07-2024 Basophils (Bld) [#/Vol] 0.09 10*3/uL [facility] Basophils/100 WBC (Bld) 1 % 0 - 2 % [facility] Eosinophils (Bld) [#/Vol] 0.10 10*3/uL [facility] Eosinophils/100 WBC (Bld) 1 % 1 - 4 % [facility] Erythrocyte distribution width (RBC) [Ratio] 12.2 % 11.8 - 14.4 % [facility] Hematocrit (Bld) [Volume fraction] 46.3 % 36.3 - 47.1 % [facility] Hemoglobin (Bld) [Mass/Vol] 15.9 g/dL High 11.9 - 15.1 g/dL [facility] Immature granulocytes (Bld) [#/Vol] [facility] Immature granulocytes/100 WBC (Bld) 0 % 0 [facility] Interpretation and review of laboratory results Abnormal [facility] Lymphocytes/100 WBC (Bld) 28 % 24 - 43 % [facility] Lymphocytes/100 WBC (Bld) 2.73 % [facility] MCH (RBC) [Entitic mass] 33.8 pg High 25.2 - 33.5 pg [facility] MCHC (RBC) [Mass/Vol] 34.3 g/dL 28.4 - 34.8 g/dL [facility] MCV (RBC) [Entitic vol] 98.3 fL 82.6 - 102.9 fL [facility] Monocytes/100 WBC (Bld) 9 % 3 - 12 % [facility] Monocytes/100 WBC (Bld) 0.88 % [facility] Neutrophils/100 WBC (Bld) 61 % 36 - [...] Medical Center WBC other (Bld) [#/Vol] 9.9 [facility] CBC with Diffon 01-07-2024 Abs. Basophil 0.09 k/uL Normal 0.00-0.20 [facility] Comment on above: Performed By: #### C P, CDP, LIP #### [address] [place], [place] [phone] [employer] Husband[employer] Technician: Ion Jasso MD Abs.Imm.Granulocyte <0.03 Normal 0.00-0.30 [facility] Comment on above: Performed By: #### C P, CDP, LIP #### [address] [place] [address] [employer] Husband[employer] Technician: Ion Jasso MD Abs.Neutrophil (Seg) 6.06 k/uL Normal 1.50-8.10 [facility] Comment on above: Performed By: #### C P, CDP, LIP #### [address] [place] [address] [employer] Husband[employer] Technician: Ion Jasso MD Basophils/100 WBC (Bld) 1 % Normal 0-2 [facility] Comment on above: Performed By: #### C P, CDP, LIP #### [address] [place] [address] [employer] Husband[employer] Technician: Ion Jasso MD Eosinophils (Bld) [#/Vol] 0.10 10*3/uL Normal 0.00-0.44 [facility] Comment on above: Performed By: #### C P, CDP, LIP #### [address] [place] [id number] [employer] Husband[employer] Technician: Ion Jasso MD Eosinophils/100 WBC (Bld) 1 % Normal 1-4 [facility] Comment on above: Performed By: #### C P, CDP, LIP #### [address] [place], [facility] [employer] Technician: Ion Jasso MD Erythrocyte distribution width (RBC) [Ratio] 12.2 % Normal 11.8-14.4 [facility] Comment on above: Performed By: #### C P, CDP, LIP #### [address] [place] [phone] [employer] Husband[employer] Technician: Ion Jasso MD Hematocrit (Bld) [Volume fraction] 46.3 % Normal 36.3-47.1 [facility] Comment on above: Performed By: #### C P, CDP, LIP #### [facility] [address] [place], [place] 3323083 [employer] Husband[employer] Technician: Ion Jasso MD Hemoglobin (Bld) [Mass/Vol] 15.9 g/dL High 11.9-15.1 [facility] Comment on above: Performed By: #### C P, CDP, LIP #### [facility] [address] [place], [place] [phone] [employer] Husband[employer] Technician: Ion Jasso MD Immature granulocytes/100 WBC (Bld) 0 % Normal 0 [facility] Comment on above: Performed By: #### C P, CDP, LIP #### [facility] [address] [place], [facility] [employer] Husband[employer] Technician: Ion Jasso MD Lymphocytes (Bld) [#/Vol] 2.73 10*3/uL Normal 1.10-3.70 [facility] Comment on above: Performed By: #### C P, CDP, LIP #### [facility] [address] [place], [place] [phone] [employer] Husband[employer] Technician: Ion Jasso MD Lymphocytes/100 WBC (Bld) 28 % Normal 24-43 [facility] Comment on above: Performed By: #### C P, CDP, LIP #### [facility] [address] [place], [place] [phone] [employer] Husband[employer] Technician: Ion Jasso MD MCH (RBC) [Entitic mass] 33.8 pg High 25.2-33.5 [facility] Comment on above: Performed By: #### C P, CDP, LIP #### [facility] [address] [place], [place] [phone] [employer] Husband[employer] Technician: Ion Jasso MD MCHC (RBC) [Mass/Vol] 34.3 g/dL Normal 28.4-34.8 [facility] Comment on above: Performed By: #### C P, CDP, LIP #### [address] [place], [place] [address] Large [employer] Husband[employer] Technician: Ion Jasso MD MCV (RBC) [Entitic vol] 98.3 fL Normal 82.6-102.9 [facility] Comment on above: Performed By: #### C P, CDP, LIP #### [address] [place], [place] [address] Large Animal Husband[employer] Technician: Ion Jasso MD Monocytes (Bld) [#/Vol] 0.88 10*3/uL Normal 0.10-1.20 [facility] Comment on above: Performed By: #### C P, CDP, LIP #### [address] [place], [place] [address] Large [employer] Husband[employer] Technician: Ion Jasso MD Monocytes/100 WBC (Bld) 9 % Normal 3-12 [facility] Comment on above: Performed By: #### C P, CDP, LIP #### [address] [place], [facility] Large [employer] Husband[employer] Technician: Ion Jasso MD Neutrophil (Seg) 61 % Normal 36-65 [facility] Comment on above: Performed By: #### C P, CDP, LIP #### [address] [place], [facility] [employer] Husband[employer] Technician: Ion Jasso MD NRBC Automated 0.0 per 100 WBC Normal 0.0 [facility] Comment on above: Performed By: #### C P, CDP, LIP #### [address] [place], [facility] [employer] Husband[employer] Technician: Ion Jasso MD Platelet mean volume (Bld) [Entitic vol] 9.7 fL Normal 8.1-13.5 [facility] Comment on above: Performed By: #### C P, CDP, LIP #### [facility] [address] [place], [place] [phone] [employer] Husband[employer] Technician: Ion Jasso MD Platelets (Bld) [#/Vol] 277 10*3/uL Normal 138-453 [facility] Comment on above: Performed By: #### C P, CDP, LIP #### [facility] [address] [place], [place] [phone] [employer] Husband[employer] Technician: Ion Jasso MD RBC (Bld) [#/Vol] 4.71 10*6/uL Normal 3.95-5.11 [facility] Comment on above: Performed By: #### C P, CDP, LIP #### [facility] [address] [place], [place] [phone] [employer] Husband[employer] Technician: Ion Jasso MD WBC (Bld) [#/Vol] 9.9 10*3/uL Normal 3.5-11.3 [facility] Comment on above: Performed By: #### C P, CDP, LIP #### [address] [place], [place] [phone] [employer] Animal Husband[employer] Technician: Ion Jasso MD Comp Metabolic Profon 2023 Albumin [Mass/Vol] 4.3 g/dL Normal 3.5-5.2 [facility] Comment on above: Performed By: #### C P, CDP, LIP #### [facility] [address] [place], [place] [phone] [employer] Husband[employer] Technician: Ion Jasso MD Albumin/Glob Ratio 1.6 Normal 1.0-2.5 [facility] Comment on above: Performed By: #### C P, CDP, LIP #### [facility] [address] [place] [address] Large Animal Husband[employer] Technician: Ion Jasso MD Alkaline Phos 145 U/L High 35-104 [facility] Comment on above: Performed By: #### C P, CDP, LIP #### [facility] [address] [place], [place] 8211083 [employer] Husband[employer] Technician: Ion Jasso MD ALT [Catalytic activity/Vol] 11 U/L Normal 10-35 [facility] Comment on above: Performed By: #### C P, CDP, LIP #### [facility] [address] [place], [place] [phone] [employer] Animal Husband[employer] Technician: Ion Jasso MD Anion gap [Moles/Vol] 12 mmol/L Normal 9-16 [facility] Comment on above: Performed By: #### C P, CDP, LIP #### [facility] [address] [place] [address] Large Animal Husband[employer] Technician: Ion Jasso MD AST [Catalytic activity/Vol] 25 U/L Normal -35 [facility] Comment on above: Result Comment: Spec imen hemolysis has exceeded the interference as defined by Joycelyn. Value may be falsely increased. Suggest recollection if clinically indicated. Performed By: #### C P, CDP, LIP #### [facility] [address] [place] [address] Large Animal Husband[employer] Technician: Ion Jasso MD Bilirubin [Mass/Vol] mg/dL Normal 0.00-1.20 [facility] Comment on above: Performed By: #### C P, CDP, LIP #### [facility] [address] [place], [place] 5996083 [employer] Animal Husband[employer] Technician: Ion Jasso MD BUN/CRE Ratio 9 Normal 9-20 [facility] Comment on above: Performed By: #### C P, CDP, LIP #### [facility] [address] [place] [address] Large Animal Husband[employer] Technician: Ion Jasso MD Calcium [Mass/Vol] 9.8 mg/dL Normal 8.6-10.4 [facility] Comment on above: Performed By: #### C P, CDP, LIP #### [facility] [address] [place] [address] Large Animal Husband[employer] Technician: Ion Jasso MD Chloride [Moles/Vol] 103 mmol/L Normal 98-107 [facility] Comment on above: Performed By: #### C P, CDP, LIP #### [facility] [address] [place] [address] Large Animal Husband[employer] Technician: Ion Jasso MD CO2 [Moles/Vol] 22 mmol/L Normal 20-31 [facility] Comment on above: Performed By: #### C P, CDP, LIP #### [facility] [address] [place], [place] [phone] [employer] Animal Husband[employer] Technician: Ion Jasso MD Creatinine [Mass/Vol] 0.8 mg/dL Normal 0.50-0.90 [facility] Comment on above: Performed By: #### C P, CDP, LIP #### [facility] [address] [place] [address] Large Animal Husband[employer] Technician: Ion Jasso MD GFR/1.73 sq M.predicted among non-blacks MDRD (S/P/Bld) [Vol rate/Area] mL/min/{1.73_m2} Normal >60 [facility] Comment on above: Result Comment: [...] #### C P, CDP, LIP #### [facility] [address] [place] [address] Large Animal Husband[employer] Technician: Ion Jasso MD Glucose [Mass/Vol] 96 mg/dL Normal 74-99 [facility] Comment on above: Performed By: #### C P, CDP, LIP #### [facility] [address] [place] [address] Large Animal Husband[employer] Technician: Ion Jasso MD Potassium [Moles/Vol] 4.6 mmol/L Normal 3.7-5.3 [facility] Comment on above: Result Comment: Spec imen hemolysis has exceeded the interference as defined by Joycelyn. Value may be falsely increased. Suggest recollection if clinically indicated. Performed By: #### C P, CDP, LIP #### [facility] [address] [place], [place] [phone] Large Animal Husband[employer] Technician: Ion Jasso MD Protein [Mass/Vol] 7.0 g/dL Normal 6.6-8.7 [facility] Comment on above: Performed By: #### C P, CDP, LIP #### [facility] [address] [place] [address] [place] [address] Large Animal Husband[employer] Technician: Ion Jasso MD Sodium [Moles/Vol] 137 mmol/L Normal 136-145 [facility] Comment on above: Performed By: #### C P, CDP, LIP #### [address] [place] [address] Large Animal Husband[employer] Technician: Ion Jasso MD Urea nitrogen [Mass/Vol] 7 mg/dL Normal 6-20 [facility] Comment on above: Performed By: #### C P, CDP, LIP #### [facility] [address] [place] [address] [place] [address] Large Animal Husband[employer] Technician: Ion Jasso MD Comprehensive Metabolic Pane [facility] 01-07-2024 Albumin [Mass/Vol] 4.3 g/dL 3.5 [...] 0.90 mg/dL [facility] Est, Glomarina Reyest Rate - PINF [facility] Comment on above: These results [...] [Moles/Vol] 1.3 mmol/L 0.5 - 2.2 mmol/L [facility] Lactate [Moles/Vol] 1.3 mmol/L Normal 0.5-2.2 [facility] Comment on above: Performed By: #### L ACTIC #### [facility] [address] [place], [place] [phone] Large Animal Husband[employer] Technician: Ion Jasso MD Lipaseon 01-07-2024 Lipase [Catalytic activity/Vol] 144 U/L High 13 - 60 U/L [facility] Lipase [Catalytic activity/Vol] 144 U/L High 13-60 [facility] Comment on above: Performed By: #### C DP, LIP, CP #### [address] [place], [place] [id number] Large Animal Husbandry Technician: Ion Jasso MD No Panel Informationon 01-06 Interpretation and review of laboratory results Abnormal [facility] Urinalysis w/ Microon 2023 Bilirubin, SemiQt,Ur Negative Normal NEG [facility] Comment on above: Performed By: #### U AMIC #### [address] [place], [place] [id number] Large Animal Husbandry Technician: Ion Jasso MD Blood, Urine Negative Normal NEG [facility] Comment on above: Performed By: #### U AMIC #### [facility] [address] [place], [place] [id number] [employer] Animal Husband[employer] Technician: Ion Jasso MD Clarity (U) Clear Normal CLEAR [facility] Comment on above: Performed By: #### U AMIC #### [facility] [address] [place] [address] [employer] Animal Husbandry Technician: Ion Jasso MD Color (U) Yellow Normal YEL [facility] Comment on above: Performed By: #### U AMIC #### [facility] [address] [place], [place] [id number] [employer] Husband[employer] Technician: Ion Jasso MD Epithelial cells LM Ql (Urine sed) 0 TO 2 Normal 0-25 [facility] Comment on above: Performed By: #### U AMIC #### [facility] [address] [place] [address] [employer] Animal Husband[employer] Technician: Ion Jasso MD Glucose Ql (U) Negative Normal NEG [facility] Comment on above: Performed By: #### U AMIC #### [facility] [address] [place], [place] 5754483 [employer] Animal Husband[employer] Technician: Ion Jasso MD Ketones Ql (U) Negative Normal NEG [facility] Comment on above: Performed By: #### U AMIC #### [facility] [address] [place] [address] Dr. [place], [place] 2552683 [employer] Animal Husband[employer] Technician: Ion Jasso MD Leukocyte esterase Test strip Ql (U) Negative Normal NEG [facility] Comment on above: Performed By: #### U AMIC #### [facility] [address] [place] [address] Dr. [place], [place] [phone] [employer] Husband[employer] Technician: Ion Jasso MD Nitrite,Ur Negative Normal NEG [facility] Comment on above: Performed By: #### U AMIC #### [facility] [address] [place] [address] Dr. [place], [place] 2333183 [employer] Animal Husbandry Technician: Ion Jasso MD PH,Ur 6.0 Normal 5.0-9.0 [facility] Comment on above: Performed By: #### U AMIC #### [facility] [address] [place], [place] 8613883 [employer] Animal Husband[employer] Technician: Ion Jasso MD Protein Ql (U) Negative Normal NEG [facility] Comment on above: Performed By: #### U AMIC #### [facility] [address] [place], [place] 3654783 [employer] Animal Husband[employer] Technician: Ion Jasso MD Spec. [place],Ur 1.010 Normal 1.010-1.02 0 [facility] Comment on above: Performed By: #### U AMIC #### [facility] [address] [place], [place] 9565383 [employer] Animal Husbandry Technician: Ion Jasso MD Urine RBC's None Normal 0-2 [facility] Comment on above: Performed By: #### U AMIC #### [facility] [address] [place], [place] 5332483 Large Animal Husbandry Technician: Ion Jasso MD Urine WBC's 0 TO 2 Normal 0-5 [facility] Comment on above: Performed By: #### U AMIC #### [facility] [address] [place], [place] 7726383 Large Animal Husbandry Technician: Ion Jasso MD Urobilinogen,Ur Normal Normal 0.0-1.0 [facility] Comment on above: Performed By: #### U AMIC #### [facility] [address] [place], [facility] Large Animal Husbandry Technician: Ion Jasso MD Urinalysis with Microscopico n 01-07-2024 Bilirubin Ql (U) Negative NEGATIVE [facility] Clarity (U) Clear Clear [facility] Color (U) Yellow Yellow [facility] Epithelial cells LM.HPF (Urine sed) [#/Area] 0 TO 2 [facility] Glucose Test strip (U) [Mass/Vol] Negative NEGATIVE mg/dL [facility] Hemoglobin Auto test strip Ql (U) Negative NEGATIVE [facility] Ketones (U) [Mass/Vol] Negative NEGAT MATTHIAS mg/dL [facility] Leukocyte esterase Test strip Ql (U) Negative NEGATIVE [facility] Nitrite Ql (U) Negative NEGATIVE [facility] pH (U) 6.0 [pH] 5.0 - 9.0 [facility] Protein (U) [Mass/Vol] Negative NEGAT MATTHIAS mg/dL [facility] RBC LM.HPF (Urine sed) [#/Area] None [facility] Specific gravity (U) [Rel density] 1.010 1.010 - 1.020 [facility] Urobilinogen Qn (U) Normal 0.0 - 1. 0 EU/dL [facility] WBC LM.HPF (Urine sed) [#/Area] 0 TO 2 [facility] BASIC METABOLIC PANLon 12-28 Anion gap [Moles/Vol] 8 mmol/L Normal 5-15 [facility] Comment on above: Performed By: #### C BCA, LIVR, 19568-8, 82100-9, 5643-2, 96778-4, 3040-3, BMP #### [facility] ([id number]) [address] [place] [address] 78270 Calcium [Mass/Vol] 9.7 mg/dL Normal 8.5-10.5 [facility] Comment on above: Performed By: #### C BCA, LIVR, 78313-1, 37123-0, 5643-2, 64114-7, 3040-3, BMP #### [facility] ([id number]) [address] [place] [address] 42852 Chloride [Moles/Vol] 106 mmol/L Normal 98-109 [facility] Comment on above: Performed By: #### C BCA, LIVR, 09294-6, 18124-4, 5643-2, 93761-9, 3040-3, BMP #### [facility] ([id number]) [address] [place] [address] 89096 CO2 [Moles/Vol] 24 mmol/L Normal 22-32 [facility] Comment on above: Performed By: #### C BCA, LIVR, 53625-8, 76278-7, 5643-2, 91047-0, 3040-3, BMP #### [facility] ([id number]) [address] [place] [address] [place] [address] Creatinine [Mass/Vol] 0.88 mg/dL Normal 0.40-1.00 [facility] Comment on above: Result Comment: METH OD TRACEABLE TO IDMS STANDARD Performed By: #### C EZEQUIEL, LIVR, 24413-9, 92059-3, 5643-2, 41604-0, 3040-3, BMP #### [facility] ([id number]) [address] [place] [address] 80519 GFR/1.73 sq M.predicted among non-blacks MDRD (S/P/Bld) [Vol rate/Area] 78 mL/min/{1.73_m2} Normal >59 [facility] Comment on above: Result Comment: Reported eGFR is based on the CKD-EPI 2020 equation that does not use a race coefficient. Performed By: #### C EZEQUIEL, LIVR, 83907-4, 10468-3, 5643-2, 72630-2, 3040-3, BMP #### [facility] ([id number]) [address] [place] [address] 15944 Glucose [Mass/Vol] 82 mg/dL Normal 65-99 [facility] Comment on above: Performed By: #### C EZEQUIEL, LIVR, 34887-4, 32609-6, 5643-2, 29047-7, 3040-3, BMP #### [facility] ([id number]) [address] [place] [address] 07754 Potassium [Moles/Vol] 4.2 mmol/L Normal 3.5-5.0 [facility] Comment on above: Result Comment: SPEC IMEN HEMOLYZED, RESULTS INCREASED Performed By: #### C BCA, LIVR, 31376-3, 60665-7, 5643-2, 10704-9, 3040-3, BMP #### [facility] ([id number]) [address] [place] [address] 94656 Sodium [Moles/Vol] 138 mmol/L Normal 134-146 [facility] Comment on above: Performed By: #### C BCA, LIVR, 64652-4, 37531-9, 5643-2, 22613-8, 3040-3, BMP #### [facility] ([id number]) [address] [place] [address] [place] [address] Urea nitrogen [Mass/Vol] 12 mg/dL Normal 5-23 [facility] Comment on above: Performed By: #### C BCA, LIVR, 29842-5, 85771-7, 5643-2, 23961-6, 3040-3, BMP #### [facility] ([id number]) [address] [place] [address] 77947 CBC AND AUTO DIFFon 12-28- 24 ABSOLUTE BASOPHIL 0.1 X10E9/L Normal 0.0-0.2 [facility] Comment on above: Performed By: #### C BCA, LIVR, 48406-7, 33335-7, 5643-2, 92269-3, 3040-3, BMP #### [facility] ([id number]) [address] [place] [address] 75318 ABSOLUTE NEUTROPHIL 3.9 X10E9/L Normal 1.5-6.6 [facility] Comment on above: Performed By: #### C BCA, LIVR, 01537-8, 80768-1, 5643-2, 68729-3, 3040-3, BMP #### [facility] ([id number]) [address] [place] [address] 83693 Basophils/100 WBC (Bld) 1.3 % Normal [facility] Comment on above: Performed By: #### C BCA, LIVR, 70870-9, 92386-2, 5643-2, 92038-8, 3040-3, BMP #### [facility] ([id number]) [address] [place] [address] 49193 Eosinophils (Bld) [#/Vol] 0.2 10*3/uL Normal 0.0-0.4 [facility] Comment on above: Performed By: #### C BCA, LIVR, 36887-2, 20672-4, 5643-2, 26443-2, 3040-3, BMP #### [facility] ([id number]) [address] [place] [address] 56451 Eosinophils/100 WBC (Bld) 2.3 % Normal [facility] Comment on above: Performed By: #### C BCA, LIVR, 96189-3, 89469-8, 5643-2, 39722-2, 3040-3, BMP #### [facility] ([id number]) [address] [place] [address] 22220 Erythrocyte distribution width (RBC) [Ratio] 13.2 % Normal 11.5-15.0 [facility] Comment on above: Performed By: #### C BCA, LIVR, 55263-2, 57003-6, 5643-2, 19438-9, 3040-3, BMP #### [facility] ([id number]) [address] [place] [address] 80253 Hematocrit (Bld) [Volume fraction] 41.8 % Normal 35-47 [facility] Comment on above: Performed By: #### C BCA, LIVR, 97586-6, 63479-3, 5643-2, 33420-9, 3040-3, BMP #### [facility] ([id number]) [address] [place] [address] 50076 Hemoglobin (Bld) [Mass/Vol] 14.3 g/dL Normal 11.7-15.5 [facility] Comment on above: Performed By: #### C BCA, LIVR, 64274-0, 29339-7, 5643-2, 21245-3, 3040-3, BMP #### [facility] ([id number]) [address] [place] [address] 00305 Lymphocytes (Bld) [#/Vol] 2.5 10*3/uL Normal 1.0-3.5 [facility] Comment on above: Performed By: #### C BCA, LIVR, 10592-4, 86724-9, 5643-2, 42236-0, 3040-3, BMP #### [facility] ([id number]) [address] [place] [address] 33056 Lymphocytes/100 WBC (Bld) 33.1 % Normal [facility] Comment on above: Performed By: #### C BCA, LIVR, 26757-2, 09433-4, 5643-2, 79325-8, 3040-3, BMP #### [facility] ([id number]) [address] [place] [address] 54286 MCH (RBC) [Entitic mass] 34.0 pg Normal 27-34 [facility] Comment on above: Performed By: #### C BCA, LIVR, 21585-2, 56496-4, 5643-2, 97751-8, 3040-3, BMP #### [facility] ([id number]) [address] [place] [address] 72209 MCHC (RBC) [Mass/Vol] 34.1 g/dL Normal 32-36 [facility] Comment on above: Performed By: #### Clara BCA, LIVR, 28337-3, 53381-3, 5643-2, 93700-5, 3040-3, BMP #### [facility] ([id number]) [address] [place] [address] 01849 MCV (RBC) [Entitic vol] 100 fL Normal 80-100 [facility] Comment on above: Performed By: #### Clara BCA, LIVR, 93186-1, 53023-2, 5643-2, 95658-5, 3040-3, BMP #### [facility] ([id number]) [address] [place] [address] 86172 Monocytes (Bld) [#/Vol] 0.9 10*3/uL Normal 0-0.9 [facility] Comment on above: Performed By: #### C BCA, LIVR, 91104-0, 18683-1, 5643-2, 86157-1, 3040-3, BMP #### [facility] ([id number]) [address] [place] [address] 24415 Monocytes/100 WBC (Bld) 12.0 % Normal [facility] Comment on above: Performed By: #### C BCA, LIVR, 04459-7, 54548-4, 5643-2, 46418-1, 3040-3, BMP #### [facility] ([id number]) [address] [place] [address] 72019 Neutrophils/100 WBC (Bld) 51.3 % Normal [facility] Comment on above: Performed By: #### C BCA, LIVR, 95954-1, 70826-4, 5643-2, 67132-8, 3040-3, BMP #### [facility] ([id number]) [address] [place] [address] 39907 Platelet mean volume (Bld) [Entitic vol] 8.2 fL Normal 7-12 [facility] Comment on above: Performed By: #### C BCA, LIVR, 62164-7, 36656-9, 5643-2, 79886-4, 3040-3, BMP #### [facility] ([id number]) [address] [place] [address] 15803 Platelets (Bld) [#/Vol] 266 10*3/uL Normal 150-450 [facility] Comment on above: Performed By: #### C BCA, LIVR, 30528-7, 54537-5, 5643-2, 00022-8, 3040-3, BMP #### [facility] ([id number]) [address] [place] [address] RBC COUNT 4.19 X10E12/L Normal 3.80-5.20 [facility] Comment on above: Performed By: #### C BCA, LIVR, 11685-7, 85932-1, 5643-2, 37084-4, 3040-3, BMP #### [facility] ([id number]) [address] [place] [address] WBC (Bld) [#/Vol] 7.7 10*3/uL Normal 4.0-11.0 [facility] Comment on above: Performed By: #### C BCA, LIVR, 74890-0, 66789-9, 5643-2, 57316-0, 3040-3, BMP #### [facility] ([id number]) [address] [place] [address] CT ABDOMEN AND PELVIS WO CON Ton [...] Presley MD on 12/29/2023 6:27 AM Normal [facility] ETHANOLon 12-29-2023 Ethanol [Mass/Vol] mg/dL Normal 0.00-0.08 [facility] Comment on above: Result Comment: This report is intended for use in clinical monitoring or management of patients. Performed By: #### C EZEQUIEL LIVR, 47699-9, 94912-5, 5643-2, 11433-9, 3040-3, BMP #### [facility] ([id number]) [address] [place] [address] 23496 Fibrin D-dimer DDU (PPP) [Ma ss/Vol]on 12-29-2023 D DIMER <150 Normal <255 [facility] Comment on above: Result Comment: Results <255 ng/mL DDU: The presence of a VTE can safely be excluded with a negative D-Dimer result and Wells score. A negative result doesn't exclude the possibility of DIC. The test be repeated along with other diagnostic tests if the patient's symptoms persist or worsen. [email or web address] Performed By: #### C EZEQUIEL LIVR, 08544-2, 71305-0, 5643-2, 47917-4, 3040-3, BMP #### [facility] ([id number]) [address] [place] [address] 57526 LIPASEon 12-29-2023 Lipase [Catalytic activity/Vol] 55 U/L High 17-40 [facility] Comment on above: Performed By: #### C EZEQUIEL, LIVR, 09583-9, 41804-9, 5643-2, 73787-6, 3040-3, BMP #### [facility] ([id number]) [address] [place] [address] 20351 LIVER PANELon 12-29-2023 Albumin [Mass/Vol] 3.9 g/dL Normal 3.2-5.3 [facility] Comment on above: Performed By: #### C EZEQUIEL, LIVR, 84203-4, 05555-2, 5643-2, 56884-4, 3040-3, BMP #### [facility] ([id number]) [address] [place] [address] 29510 ALP [Catalytic activity/Vol] 111 U/L Normal 39-130 [facility] Comment on above: Performed By: #### C BCA, LIVR, 70397-9, 50186-3, 5643-2, 50053-2, 3040-3, BMP #### [facility] ([id number]) [address] [place] [address] 79365 ALT [Catalytic activity/Vol] 11 U/L Normal 0-31 [facility] Comment on above: Performed By: #### C BCA, LIVR, 38887-8, 11995-5, 5643-2, 07547-2, 3040-3, BMP #### [facility] ([id number]) [address] [place] [address] 91027 AST [Catalytic activity/Vol] 23 U/L Normal 0-41 [facility] Comment on above: Performed By: #### C BCA, LIVR, 49581-2, 07970-2, 5643-2, 14190-6, 3040-3, BMP #### [facility] ([id number]) [address] [place] [address] 61618 Bilirubin [Mass/Vol] 0.5 mg/dL Normal 0.3-1.2 [facility] Comment on above: Result Comment: RESU LTS QUESTIONABLE DUE TO HEMOLYSIS Performed By: #### C BCA, LIVR, 12739-9, 69671-9, 5643-2, 71448-3, 3040-3, BMP #### [facility] ([id number]) [address] [place] [address] 34504 Bilirubin.direct [Mass/Vol] 0.3 mg/dL Normal 0.0-0.4 [facility] Comment on above: Performed By: #### C BCA, LIVR, 48653-7, 42608-9, 5643-2, 44399-7, 3040-3, BMP #### [facility] ([id number]) [address] [place] [address] 74168 Protein [Mass/Vol] 6.9 g/dL Normal 6.0-8.0 [facility] Comment on above: Performed By: #### C BCA, LIVR, 17249-7, 62788-9, 5643-2, 67443-0, 3040-3, BMP #### [facility] ([id number]) [address] [place] [address] 59277 MAGNESIUMon 12-29-2023 Magnesium [Mass/Vol] 2.2 mg/dL Normal 1.8-2.6 [facility] Comment on above: Performed By: #### C BCA, LIVR, 06336-3, 37232-3, 5643-2, 55837-5, 3040-3, BMP #### [facility] ([id number]) [address] [place] [address] 81434 Troponin I.cardiac High sens itivity method [Mass/Vol]on 12-29-2023 1 HOUR TROP I, HIGH SENSITIVITY 2 ng/L Normal <16 [facility] Comment on above: Performed By: #### 8 9579-7 #### [facility] ([id number]) [address] [place] [address] 68586 TROPONIN I, HIGH SENSITIVITY 2 ng/L Normal <16 [facility] Comment on above: Performed By: #### C BCA, LIVR, 67762-3, 52644-6, 5643-2, 87279-6, 3040-3, BMP #### [facility] ([id number]) [address] [place] [address] 09200 CBC with Diffon 07-23-2024 Basophils (Bld) [#/Vol] 0.05 10*3/uL [facility] Basophils/100 WBC (Bld) 0 % 0 - 2 % [facility] Eosinophils (Bld) [#/Vol] 0.05 10*3/uL [facility] Eosinophils/100 WBC (Bld) 0 % Low 1 - 4 % [facility] Erythrocyte distribution width (RBC) [Ratio] 12.9 % 11.8 - 14.4 % [facility] Hematocrit (Bld) [Volume fraction] 40.3 % 36.3 - 47.1 % [facility] Hemoglobin (Bld) [Mass/Vol] 14.2 g/dL 11.9 - 15.1 g/dL [facility] Immature granulocytes (Bld) [#/Vol] [facility] Immature granulocytes/100 WBC (Bld) 0 % 0 [facility] Interpretation and review of laboratory results Abnormal [facility] Lymphocytes/100 WBC (Bld) 19 % Low 24 - 43 % [facility] Lymphocytes/100 WBC (Bld) 2.18 % [facility] MCH (RBC) [Entitic mass] 33.8 pg High 25.2 - 33.5 pg [facility] MCHC (RBC) [Mass/Vol] 35.2 g/dL High 28.4 - 34.8 g/dL [facility] MCV (RBC) [Entitic vol] 96.0 fL 82.6 - 102.9 fL [facility] Monocytes/100 WBC (Bld) 8 % 3 - 12 % [facility] Monocytes/100 WBC (Bld) 0.94 % [facility] Neutrophils/100 WBC (Bld) 73 % High 36 - 65 % [facility] Nucleated RBC/100 WBC (Bld) [Ratio] 0.0 % 0.0 per 100 WBC [facility] Platelet mean volume (Bld) [Entitic vol] 9.4 fL 8.1 - 13.5 fL [facility] Platelets (Bld) [#/Vol] 193 10*3/uL [facility] RBC (Bld) [#/Vol] 4.20 10*6/uL 3.95 - 5.11 m/uL [facility] Segmented neutrophils/100 WBC (Bld) 8.10 % [facility] WBC other (Bld) [#/Vol] 11.3 [facility] Abs. Basophil 0.05 k/uL Normal 0.00-0.20 [facility] Comment on above: Performed By: #### C DP LIP, CP #### [facility] [address] [place], [place] [address] [employer] Husband[employer] Technician: Ion Jasso MD Abs.Imm.Granulocyte <0.03 Normal 0.00-0.30 [facility] Comment on above: Performed By: #### C ELMER LIP, CP #### [facility] [address] [place] [address] [employer] Husband[employer] Technician: Ion Jasso MD Abs.Neutrophil (Seg) 8.10 k/uL Normal 1.50-8.10 [facility] Comment on above: Performed By: #### C DP LIP, CP #### [facility] [address] [place], [place] [address]83 [employer] Husband[employer] Technician: Ion Jasso MD Basophils/100 WBC (Bld) 0 % Normal 0-2 [facility] Comment on above: Performed By: #### C DP LIP, CP #### [facility] [address] [place], [place] [address] [employer] Husband[employer] Technician: Ion Jasso MD Eosinophils (Bld) [#/Vol] 0.05 10*3/uL Normal 0.00-0.44 [facility] Comment on above: Performed By: #### C DP, LIP, CP #### [facility] [address] [place] [address] [employer] Husband[employer] Technician: Ion Jasso MD Eosinophils/100 WBC (Bld) 0 % Low 1-4 [facility] Comment on above: Performed By: #### C DP, LIP, CP #### [facility] [address] [place], [facility] [employer] Technician: Ion Jasso MD Erythrocyte distribution width (RBC) [Ratio] 12.9 % Normal 11.8-14.4 [facility] Comment on above: Performed By: #### C DP, LIP, CP #### [address] [place], [place] [address] [employer] Husband[employer] Technician: Ion Jasso MD Hematocrit (Bld) [Volume fraction] 40.3 % Normal 36.3-47.1 [facility] Comment on above: Performed By: #### C ELMER LIP, CP #### [address] [place] [address] [employer] Husband[employer] Technician: Ion Jasso MD Hemoglobin (Bld) [Mass/Vol] 14.2 g/dL Normal 11.9-15.1 [facility] Comment on above: Performed By: #### C DP LIP, CP #### [address] [place], [place] [address] [employer] Husband[employer] Technician: Ion Jasso MD Immature granulocytes/100 WBC (Bld) 0 % Normal 0 [facility] Comment on above: Performed By: #### C ELMER LIP, CP #### [address] [place], [place] [address] [employer] Husband[employer] Technician: Ion Jasso MD Lymphocytes (Bld) [#/Vol] 2.18 10*3/uL Normal 1.10-3.70 [facility] Comment on above: Performed By: #### C DP LIP, CP #### [address] [place] [id number] [employer] Husband[employer] Technician: Ion Jasso MD Lymphocytes/100 WBC (Bld) 19 % Low 24-43 [facility] Comment on above: Performed By: #### C DP LIP, CP #### [address] [place] [facility] [employer] Husband[employer] Technician: Ion Jasso MD MCH (RBC) [Entitic mass] 33.8 pg High 25.2-33.5 [facility] Comment on above: Performed By: #### C DP, LIP, CP #### [facility] [address] [place] [address] Dr[place], [facility] [employer] Husband[employer] Technician: Ion Jasso MD MCHC (RBC) [Mass/Vol] 35.2 g/dL High 28.4-34.8 [facility] Comment on above: Performed By: #### C DP, LIP, CP #### [address] [place] [address] [employer] Husband[employer] Technician: Ion Jasso MD MCV (RBC) [Entitic vol] 96.0 fL Normal 82.6-102.9 [facility] Comment on above: Performed By: #### C DP, LIP, CP #### [address] Michel, [facility] [employer] Husband[employer] Technician: Ion Jasso MD Monocytes (Bld) [#/Vol] 0.94 10*3/uL Normal 0.10-1.20 [facility] Comment on above: Performed By: #### C DP, LIP, CP #### [address] Michel, [facility] [employer] Animal Husband[employer] Technician: Ion Jasso MD Monocytes/100 WBC (Bld) 8 % Normal 3-12 [facility] Comment on above: Performed By: #### C DP, LIP, CP #### [facility] [address] Michel, [facility] [employer] Husband[employer] Technician: Ion Jasso MD Neutrophil (Seg) 73 % High 36-65 [facility] Comment on above: Performed By: #### C DP, LIP, CP #### [facility] [address] Michel, [facility] [employer] Husband[employer] Technician: Ion Jasso MD NRBC Automated 0.0 per 100 WBC Normal 0.0 [facility] Comment on above: Performed By: #### C REBECA PAYNE, CP #### [facility] [address] Michel, [place] [id number] [employer] Technician: Ion Jasso MD Platelet mean volume (Bld) [Entitic vol] 9.4 fL Normal 8.1-13.5 [facility] Center Comment on above: Performed By: #### C REBECA PAYNE, CP #### [facility] [address] [place], [place] [id number] Large Animal Husbandry Technician: Ion Jasso MD Platelets (Bld) [#/Vol] 193 10*3/uL Normal 138-453 [facility] Comment on above: Performed By: #### C REBECA PAYNE, CP #### [facility] [address] [place] [address] [place], [place] [phone] Large Animal Husbandry Technician: Ion Jasso MD RBC (Bld) [#/Vol] 4.20 10*6/uL Normal 3.95-5.11 [facility] Comment on above: Performed By: #### C REBECA PAYNE, CP #### [address] [place], [place] [id number] Large Animal Husbandry Technician: Ion Jasso MD WBC (Bld) [#/Vol] 11.3 10*3/uL Normal 3.5-11.3 [facility] Comment on above: Performed By: #### C REBECA PAYNE, CP #### [facility] [address] [place], [place] [phone] Large Animal Husbandry Technician: Ion Jasso MD [facility] 09-29-2023 Albumin [Mass/Vol] 4.4 g/dL 3.5 - 5.2 g/dL [facility] Albumin/Globulin [Mass ratio] 1.9 {ratio} 1.0 - 2.5 [facility] ALP [Catalytic activity/Vol] 123 U/L High 35 - 104 U/L [facility] ALT [Catalytic activity/Vol] 15 U/L 5 - 33 U/L [facility] Anion gap [Moles/Vol] 10 mmol/L 9 - 17 mmol/L [facility] AST [Catalytic activity/Vol] 21 U/L NINF - 32 U/L [facility] Bilirubin [Mass/Vol] 0.3 mg/dL 0.3 - 1 .2 mg/dL [facility] Calcium [Mass/Vol] 10.0 mg/dL 8.6 - 10. 4 mg/dL [facility] Chloride [Moles/Vol] 104 mmol/L 98 - 10 7 mmol/L [facility] CO2 [Moles/Vol] 24 mmol/L 20 - 31 mmol/L [facility] Creatinine [Mass/Vol] 0.8 mg/dL 0.5 - 0.9 mg/dL [facility] Est, Glom Filt Rate 88 - [facility] Comment on above: These results are not [...] 126 mg/dL High 70 - 99 mg/dL [facility] Potassium [Moles/Vol] 3.5 mmol/L Low 3.7 - 5.3 mmol/L [facility] Protein [Mass/Vol] 6.7 g/dL 6.4 - 8.3 g/dL [facility] Sodium [Moles/Vol] 138 mmol/L 135 - 144 mmol/L [facility] Urea nitrogen [Mass/Vol] 10 mg/dL 6 - 20 mg/dL [facility] Urea nitrogen/Creatinine [Mass ratio] 13 mg/mg 9 - 20 [facility] Comp Metabolic Profon 2023 Albumin [Mass/Vol] 4.4 g/dL Normal 3.5-5.2 [facility] Comment on above: Performed By: #### C DP, LIP, CP #### [facility] [address] [place], [place] [phone] Large Animal Husbandry Technician: Ion Jasso MD Albumin/Glob Ratio 1.9 Normal 1.0-2.5 [facility] Comment on above: Performed By: #### C DP, LIP, CP #### [facility] [address] [place], [place] [phone] Large Animal Husbandry Technician: Ion Jasso MD Alkaline Phos 123 U/L High 35-104 [facility] Comment on above: Performed By: #### C DP, LIP, CP #### [facility] [address] [place], [place] [phone] Large Animal Husbandry Technician: Ion Jasso MD ALT [Catalytic activity/Vol] 15 U/L Normal 5-33 [facility] Comment on above: Performed By: #### C DP, LIP, CP #### [address] [place], [place] [phone] Large Animal Husbandry Technician: Ion Jasso MD Anion gap [Moles/Vol] 10 mmol/L Normal 9-17 [facility] Comment on above: Performed By: #### C DP, LIP, CP #### [address] [place], [place] [phone] Large Animal Husbandry Technician: Ion Jasso MD AST [Catalytic activity/Vol] 21 U/L Normal <32 [facility] Comment on above: Performed By: #### C DP, LIP, CP #### [address] [place], [place] [phone] Large Animal Husbandry Technician: Ion Jasso MD Bilirubin [Mass/Vol] 0.3 mg/dL Normal 0.3-1.2 [facility] Comment on above: Performed By: #### C DP, LIP, CP #### [address] [place], [place] [phone] Large Animal Husbandry Technician: Ion Jasso MD BUN/CRE Ratio 13 Normal 9-20 [facility] Comment on above: Performed By: #### C ELMER LIP, CP #### [facility] [address] [place] [address] Large Animal Husbandry Technician: Ion Jasso MD Calcium [Mass/Vol] 10.0 mg/dL Normal 8.6-10.4 [facility] Comment on above: Performed By: #### C ELMER LIP, CP #### [facility] [address] [place] [address] Large Animal Husbandry Technician: Ion Jasso MD Chloride [Moles/Vol] 104 mmol/L Normal 98-107 [facility] Comment on above: Performed By: #### C ELMER LIP, CP #### [facility] [address] [place] [address] Large Animal Husbandry Technician: Ion Jasso MD CO2 [Moles/Vol] 24 mmol/L Normal 20-31 [facility] Comment on above: Performed By: #### C REBECA PAYNE, CP #### [facility] [address] [place] [address] Large Animal Husbandry Technician: Ion Jasso MD Creatinine [Mass/Vol] 0.8 mg/dL Normal 0.5-0.9 [facility] Comment on above: Performed By: #### C ELMER LIP, CP #### [facility] [address] [place] [address] Large Animal Husbandry Technician: Ion Jasso MD GFR/1.73 sq M.predicted among non-blacks MDRD (S/P/Bld) [Vol rate/Area] 88 mL/min/{1.73_m2} Normal >60 [facility] Comment on above: Result Comment: [...] By: #### C REBECA PAYNE, CP #### [facility] [address] [place], [place] [phone] Large Animal Husbandry Technician: Ion Jasso MD Glucose [Mass/Vol] 126 mg/dL High 70-99 [facility] Comment on above: Performed By: #### C REBECA PAYNE, CP #### [facility] [address] [place] [address] Large Animal Husbandry Technician: Ion Jasso MD Potassium [Moles/Vol] 3.5 mmol/L Low 3.7-5.3 [facility] Comment on above: Performed By: #### C REBECA PAYNE, CP #### [address] [place] [address] Large Animal Husbandry Technician: Ion Jasso MD Protein [Mass/Vol] 6.7 g/dL Normal 6.4-8.3 [facility] Comment on above: Performed By: #### C REBECA PAYNE, CP #### [address] [place] [address] Large Animal Husbandry Technician: Ion Jasso MD Sodium [Moles/Vol] 138 mmol/L Normal 135-144 [facility] Comment on above: Performed By: #### C REBECA PAYNE, CP #### [facility] [address] [place] [address] [place] [address] Large Animal Husbandry Technician: Ion Jasso MD Urea nitrogen [Mass/Vol] 10 mg/dL Normal 6-20 [facility] Comment on above: Performed By: #### C REBECA PAYNE, CP #### [address] [place], [place] [phone] Large Animal Husbandry Technician: Ion Jasso MD Lipaseon 09-29-2023 Lipase [Catalytic activity/Vol] 141 U/L High 13 - 60 U/L [facility] Lipase [Catalytic activity/Vol] 141 U/L High 13-60 [facility] Comment on above: Performed By: #### C ELMER LIP, CP #### [facility] [address] [place] [address] Large Animal Husbandry Technician: Ion Jasso MD Microscopic Urinalysison Bacteria LM Ql (Urine sed) TRACE Abnormal None [facility] Epithelial cells LM.HPF (Urine sed) [#/Area] 2 TO 5 [facility] Interpretation and review of laboratory results Abnormal [facility] RBC LM.HPF (Urine sed) [#/Area] 0 TO 2 [facility] WBC LM.HPF (Urine sed) [#/Area] 0 TO 2 [facility] No Panel Informationon 09-28 Interpretation and review of laboratory results Abnormal [facility] UA w/Reflex Cultureon 2023 Bilirubin, SemiQt,Ur Negative Normal NEG [facility] Comment on above: Performed By: #### C REBECA PAYNE, CP #### [facility] [address] [place] [address] [place] [address] Large Animal Husbandry Technician: Ion Jasso MD Blood, Urine Negative Normal NEG [facility] Comment on above: Performed By: #### C ELMER LIP, CP #### [facility] [address] [place] [address] Large Animal Husbandry Technician: Ion Jasso MD Clarity (U) Clear Normal CLEAR [facility] Comment on above: Performed By: #### C ELMER LIP, CP #### [facility] [address] [place] [address] [place] [address] Large Animal Husbandry Technician: Ion Jasso MD Color (U) Yellow Normal YEL [facility] Comment on above: Performed By: #### C DP LIP, CP #### [facility] [address] [place] [address] Large Animal Husbandry Technician: Ion Jasso MD Glucose Ql (U) Negative Normal NEG [facility] Comment on above: Performed By: #### C DP, LIP, CP #### [address] [place], [place] [phone] Large Animal Husbandry Technician: Ion Jasso MD Ketones Ql (U) Negative Normal NEG [facility] Comment on above: Performed By: #### C DP, LIP, CP #### [address] [place] [address] Large Animal Husbandry Technician: Ion Jasso MD Leukocyte esterase Test strip Ql (U) Negative Normal NEG [facility] Comment on above: Performed By: #### C DP, LIP, CP #### [address] [place] [address] Large Animal Husbandry Technician: Ion Jasso MD Nitrite,Ur Negative Normal NEG [facility] Comment on above: Performed By: #### C DP, LIP, CP #### [address] [place], [place] [phone] Large Animal Husbandry Technician: Ion Jasso MD PH,Ur 6.0 Normal 5.0-9.0 [facility] Comment on above: Performed By: #### C DP, LIP, CP #### [address] [place], [place] [address] Large Animal Husbandry Technician: Ion Jasso MD Protein Ql (U) Negative Normal NEG [facility] Comment on above: Performed By: #### C DP, LIP, CP #### [address] [place] [address] Large Animal Husbandry Technician: Ion Jasso MD Spec. [place],Ur >1.030 High 1.010-1.02 0 [facility] Comment on above: Performed By: #### C DP, LIP, CP #### [address] [place] [address] Large Animal Husbandry Technician: Ion Jasso MD Urobilinogen,Ur Normal Normal 0.0-1.0 [facility] Comment on above: Performed By: #### C REBECA PAYNE CP #### [facility] [address] [place] [address] Large Animal Husbandry Technician: Ion Jasso MD Urinalysis with Reflex to Cu ltureon 09-29-2023 Bilirubin Ql (U) Negative NEGATIVE [facility] Clarity (U) Clear Clear [facility] Color (U) Yellow Yellow [facility] Glucose Test strip (U) [Mass/Vol] Negative NEGATIVE mg/dL [facility] Hemoglobin Auto test strip Ql (U) Negative NEGATIVE [facility] Interpretation and review of laboratory results Abnormal [facility] Ketones (U) [Mass/Vol] Negative NEGAT MATTHIAS mg/dL [facility] Leukocyte esterase Test strip Ql (U) Negative NEGATIVE [facility] Nitrite Ql (U) Negative NEGATIVE [facility] pH (U) 6.0 [pH] 5.0 - 9.0 [facility] Protein (U) [Mass/Vol] Negative NEGAT MATTHIAS mg/dL [facility] Specific gravity (U) [Rel density] High 1.010 - 1.020 [facility] Urobilinogen Qn (U) Normal 0.0 - 1. 0 EU/dL [facility] Urinalysis,Microon 4 Bacteria TRACE Abnormal NONE [facility] Comment on above: Performed By: #### C REBECA PAYNE CP #### [facility] [address] [place] [address] Large Animal Husbandry Technician: Ion Jasso MD Epithelial cells LM Ql (Urine sed) 2 TO 5 Normal 0-25 [facility] Comment on above: Performed By: #### C REBECA PAYNE, CP #### [facility] [address] [place] [address] Large Animal Husbandry Technician: Ion Jasso MD Urine RBC's 0 TO 2 Normal 0-2 [facility] Comment on above: Performed By: #### C REBECA PAYNE, CP #### [facility] [address] [place] [address] Large Animal Husbandry Technician: Ion Jasso MD Urine WBC's 0 TO 2 Normal 0-5 [facility] Comment on above: Performed By: #### C REBECA PAYNE, CP #### [facility] [address] [place] [address] Large Animal Husbandry Technician: Ion Jasso MD UPPER EUSon 09-08-2023 [facility] Patient Name: Chioma Rainey Procedure Date: 09/08/2023 7:35 AM Date of : 1970 Admit Type: Outpatient Age: 53 Room: EUS Proc Room 01 Gender: Female Note Status: Finalized Attending MD: Sabrina Dee MD, MPH, [id number] Procedure: Upper EUS Indications: Chronic pancreatitis, Celiac plexus block for pain secondary to chronic pancreatitis Providers: Sabrina Dee MD, MPH (Doctor), Marybel Jones, RN (Nurse), Love Zeng, RN (Nurse), LOW Marvin (Anesthesia Staff) Referring [...] the (more content not included)... LAB, [facility] Radiology Study observation (narrative) [facility] Alanine aminotransferase [En zymatic activity/volume] in Serum or PlasmaOrdered By: Xiang Kellogg on 04-18-2023 ALT [Catalytic activity/Vol] 9 U/L Normal 7-52 [facility] Comment on above: Performed By: #### L IPASE, CBC, CMP, HS TROP #### [facility] [address] [place] [address] [place] Albumin [Mass/volume] in Ser um or Plasma by Bromocresol green (BCG) dye binding methoOrdered By: Xiang Kellogg on 04-18-2023 Albumin BCG dye [Mass/Vol] 4.5 g/dL 3.5-5.7 [facility] Alkaline phosphatase [Enzyma tic activity/volume] in Serum or PlasmaOrdered By: Xiang Kellogg on 04-18-2023 ALP [Catalytic activity/Vol] 107 U/L High 34-104 [facility] Comment on above: Performed By: #### L IPASE, CBC, CMP, HS TROP #### [place] [address] [place] Amylase [Enzymatic activity/ volume] in Serum or PlasmaOrdered By: Xiang Kellogg on 04-18-2023 Amylase [Catalytic activity/Vol] 72 U/L Normal 29-103 [facility] Comment on above: Performed By: #### L IPASE, CBC, CMP, HS TROP #### [facility] [address] [place] [address] Aspartate aminotransferase [ Enzymatic activity/volume] in Serum or PlasmaOrdered By: Xiang Kellogg on 04-18-2023 AST [Catalytic activity/Vol] 14 U/L Normal 13-39 [facility] Comment on above: Performed By: #### L IPASE, CBC, CMP, HS TROP #### [facility] [address] [place] [address] Automated basophil %Ordered By: Xiang Kellogg on 04-18-2023 Basophils/100 WBC (Bld) 0.8 % Normal . [facility] Comment on above: Performed By: #### L IPASE, CBC, CMP, HS TROP #### [address] Automated basophil countOrde red By: Xiang Kellogg on 04-18-2023 Basophils (Bld) [#/Vol] 0.1 10*3/uL Normal 0.0-0.2 [facility] Comment on above: Result Comment: PERF ORMED BY: [place] [id number] PATHOLOGIST OPERATIONS EXECUTIVE PAULA RODRIGUES M.D. Performed By: #### L IPASE, CBC, CMP, HS TROP #### [address] Automated blood monocyte cou ntOrdered By: Xiang Kellogg on 04-18-2023 Monocytes (Bld) [#/Vol] 0.6 10*3/uL Normal 0.0-0.8 [facility] Comment on above: Performed By: #### L IPASE, CBC, CMP, HS TROP #### [address] Automated eosinophil %Ordere d By: Xiang Kellogg on 04-18-2023 Eosinophils/100 WBC (Bld) 0.2 % Normal . [facility] Comment on above: Performed By: #### L IPASE, CBC, CMP, HS TROP #### [address] Automated eosinophil countOr dered By: Xiang Kellogg on 04-18-2023 Eosinophils (Bld) [#/Vol] 0.0 10*3/uL Normal 0.0-0.45 [facility] Comment on above: Performed By: #### L IPASE, CBC, CMP, HS TROP #### [address] Automated monocyte %Ordered By: Xiang Kellogg on 04-18-2023 Monocytes/100 WBC (Bld) 5.4 % Normal . [facility] Comment on above: Performed By: #### L IPASE, CBC, CMP, HS TROP #### [address] Automated neutrophil %Ordere d By: Xiang Kellogg on 04-18-2023 Neutrophils/100 WBC (Bld) 80.8 % Normal . [facility] Comment on above: Performed By: #### L IPASE, CBC, CMP, HS TROP #### [address] Basic Metabolic Panelon 04-09 Creatinine Clr Calc Pharmacy 64.32 Normal [facility] Comment on above: Performed By: #### L IPASE, CBC, CMP, HS TROP #### [facility] [address] [place] [address] GFR/1.73 sq M.predicted MDRD (S/P/Bld) [Vol rate/Area] mL/min/{1.73_m2} Normal [facility] Comment on above: Performed By: #### L IPASE, CBC, CMP, HS TROP #### [facility] [address] Bilirubin.direct [Mass/volum e] in Serum or PlasmaOrdered By: Xiang Kellogg on 04-18-2023 Bilirubin.direct [Mass/Vol] 0.00 mg/dL 0.03-0.18 [facility] Comment on above: If the DBIL is less than 0.1, IBIL is not able to becalculated. Bilirubin.total [Mass/volume ] in Serum or PlasmaOrdered By: Xiang Kellogg on 04-18-2023 Bilirubin [Mass/Vol] 0.3 mg/dL Normal 0.3-1.0 [facility] Comment on above: Performed By: #### L IPASE, CBC, CMP, HS TROP #### [address] abdomen pelvis wo conon 0 04-18-2023 CT abdomen pelvis wo con [facility] Main [place] [address] [place] [address] CT Scan Report Signed Patient: Chioma Arciniega MR#: [id number] : 1970 Acct:[id number] Age/Sex: 52 / F ADM Date: 04/18/23 Loc: ER Room: Type: [facility] ER Attending Dr: Copies to: Xiang [...] Rajeev Ulloa M.D.04/18/2023 5:07 PM Dictation Location: [place] [address] Transcribed By: [facility] 04/18/231706 Dictated By: Rajeev Ulloa II, MD 04/18/231700 Signed By: 04/18/23 170 Normal [facility] Calcium [Mass/volume] in Ser um or PlasmaOrdered By: Xiang Kellogg on 04-18-2023 Calcium [Mass/Vol] 11.1 mg/dL High 8.6-10.3 [facility] Comment on above: Performed By: #### L IPASE, CBC, CMP, HS TROP #### [facility] [address] [place] [address] Carbon dioxide, total [Moles /volume] in Serum or PlasmaOrdered By: Xiang Kellogg on 04-18-2023 CO2 [Moles/Vol] 30.2 mmol/L Normal 21.0-31.0 [facility] Comment on above: Performed By: #### L IPASE, CBC, CMP, HS TROP #### [address] Chloride [Moles/volume] in S erika or PlasmaOrdered By: Xiang Kellogg on 04-18-2023 Chloride [Moles/Vol] 103 mmol/L Normal 98-107 [facility] Comment on above: Performed By: #### L IPASE, CBC, CMP, HS TROP #### [address] Complete Blood Count Auto Di ffon 04-18-2023 Mean Corpuscular HGB Conc 34.3 g/dL Normal 32.0-35.0 [facility] Comment on above: Performed By: #### L IPASE, CBC, CMP, HS TROP #### [address] Monocytes/100 WBC (Bld) 16.25 % Normal 0.00-20.00 [facility] Comment on above: Performed By: #### L IPASE, CBC, CMP, HS TROP #### [address] NRBC% 0.0 /100{WBC} Normal 0-0.5 [facility] Comment on above: Performed By: #### L IPASE, CBC, CMP, HS TROP #### [address] Creatinine [Mass/volume] in Serum or PlasmaOrdered By: Xiang Kellogg on 04-18-2023 Creatinine [Mass/Vol] 0.80 mg/dL Normal 0.60-1.20 [facility] Comment on above: Performed By: #### L IPASE, CBC, CMP, HS TROP #### [place] [address] [place] Erythrocyte distribution wid th [Ratio] by Automated countOrdered By: Xiang Kellogg on 04-18-2023 Erythrocyte distribution width (RBC) [Ratio] 13.4 % Normal 11.9-15.3 [facility] Comment on above: Performed By: #### L IPASE, CBC, CMP, HS TROP #### [facility] [address] Erythrocytes [#/volume] in B lood by Automated countOrdered By: Xiang Kellogg on 04-18-2023 RBC (Bld) [#/Vol] 4.35 10*6/uL Normal 3.60-5.00 [facility] Comment on above: Performed By: #### L IPASE, CBC, CMP, HS TROP #### [facility] [address] [place] [address] [place] Ethanol [Mass/volume] in Ser um or PlasmaOrdered By: Xiang Kellogg on 04-18-2023 Ethanol [Mass/Vol] mg/dL Normal [facility] Comment on above: Performed By: #### L IPASE, CBC, CMP, HS TROP #### [facility] [address] Ethanol [Mass/Vol] TNP [facility] Comment on above: Test not performed Ethyl Alcohol Profileon 04-09 Percent Ethanol Not performed Normal [facility] Comment on above: Result Comment: PERF ORMED BY: [place] [address] PATHOLOGIST OPERATIONS EXECUTIVE PAULA RODRIGUES M.D. Performed By: #### L IPASE, CBC, CMP, HS TROP #### [address] Glucose [Mass/volume] in Ser um or PlasmaOrdered By: Xiang Kellogg on 04-18-2023 Glucose [Mass/Vol] 108 mg/dL High 70-100 [facility] Comment on above: ADA recommended refe rence rangeRandom Glucose Reference Range is dependent on time and content of last meal. Glucose of more than 200 mg/dL in a nonstressed, ambulatory subject supports the diagnosis of Diabetes Mellitus. Result Comment: [place] Glucose Reference Range is dependent on time and content of last meal. Glucose of more than 200 mg/dL in a nonstressed, ambulatory subject supports the diagnosis of Diabetes Mellitus. ADA recommended reference range Performed By: #### L IPASE, CBC, CMP, HS TROP #### [address] Hematocrit [Volume Fraction] of Blood by Automated countOrdered By: Xiang Kellogg on 04-18-2023 Hematocrit (Bld) [Volume fraction] 41.6 % Normal 34.0-46.4 [facility] Comment on above: Performed By: #### L IPASE, CBC, CMP, HS TROP #### [address] Hemoglobin [Mass/volume] in BloodOrdered By: Xiang Kellogg on 04-18-2023 Hemoglobin (Bld) [Mass/Vol] 14.3 g/dL Normal 11.8-15.4 [facility] Comment on above: Performed By: #### L IPASE, CBC, CMP, HS TROP #### [address] Hepatic Panelon 04-18-2023 Albumin [Mass/Vol] 4.5 g/dL Normal 3.5-5.7 [facility] Comment on above: Performed By: #### L IPASE, CBC, CMP, HS TROP #### [address] Bilirubin,Indirect 0.3 mg/dL Normal [facility] Comment on above: Performed By: #### L IPASE, CBC, CMP, HS TROP #### [address] Bilirubin.indirect [Mass/Vol] 0.00 mg/dL Low 0.03-0.18 [facility] Comment on above: Result Comment: If t he DBIL is less than 0.1, IBIL is not able to be calculated. Performed By: #### L IPASE, CBC, CMP, HS TROP #### [address] Leukocytes [#/volume] correc aurelia for nucleated erythrocytes in Blood by Automated counOrdered By: Xiang Kellogg on 04-18-2023 WBC corrected for nucl RBC Auto (Bld) [#/Vol] 12.1 10*3/uL 3.8-11.6 [facility] Leukocytes [#/volume] in Blo od by Automated countOrdered By: Xiang Kellogg on 04-18-2023 WBC (Bld) [#/Vol] 12.1 10*3/uL High 3.8-11.6 [facility] Comment on above: Performed By: #### L IPASE, CBC, CMP, HS TROP #### [facility] [address] [place] [address] [place] Lipase [Enzymatic activity/v olume] in Serum or PlasmaOrdered By: Xiang Kellogg on 04-18-2023 Lipase [Catalytic activity/Vol] 47.0 U/L Normal 11.0-82.0 [facility] Comment on above: Result Comment: PERF ORMED BY: [place] [address] PATHOLOGIST OPERATIONS EXECUTIVE PAULA RODRIGUES M.D. Performed By: #### L IPASE, CBC, CMP, HS TROP #### [facility] [address] [place] [address] [place] Lymphocytes [#/volume] in Bl ood by Automated countOrdered By: Xiang Kellogg on 04-18-2023 Lymphocytes (Bld) [#/Vol] 1.6 10*3/uL Normal 1.00-4.8 [facility] Comment on above: Performed By: #### L IPASE, CBC, CMP, HS TROP #### [facility] [address] [place] [address] [place] Lymphocytes/100 leukocytes i n Blood by Automated countOrdered By: Xiang Kellogg on 04-18-2023 Lymphocytes/100 WBC (Bld) 12.8 % Normal . [facility] Comment on above: Performed By: #### L IPASE, CBC, CMP, HS TROP #### [facility] [address] [place], [place] [id number] [place] MCH [Entitic mass] by Automa aurelia countOrdered By: Xiang Kellogg on 04-18-2023 MCH (RBC) [Entitic mass] 32.7 pg Normal 24.7-34.3 [facility] Comment on above: Performed By: #### L IPASE, CBC, CMP, HS TROP #### [facility] [address] [place] [address] MCHC Auto (RBC) [Mass/Vol]Or dered By: Xiang Kellogg on 04-18-2023 MCHC (RBC) [Mass/Vol] 34.3 g/dL 32.0-35.0 [facility] MCV [Entitic volume] by Auto mated countOrdered By: Xiang Kellogg on 04-18-2023 MCV (RBC) [Entitic vol] 95.5 fL Normal 80-100 [facility] Comment on above: Performed By: #### L IPASE, CBC, CMP, HS TROP #### [facility] [address] [place] [address] Monocyte distribution width [Entitic volume] in Blood by AutomatedOrdered By: Xiang Kellogg on 04-18-2023 Monocyte distribution width Auto (Bld) [Entitic vol] 16.25 % 0.00-20.00 [facility] Neutrophils [#/volume] in Bl ood by Automated countOrdered By: Xiang Kellogg on 04-18-2023 Neutrophils (Bld) [#/Vol] 9.8 10*3/uL High 1.8-7.7 [facility] Comment on above: Performed By: #### L IPASE, CBC, CMP, HS TROP #### [facility] [address] [place] [address] No Panel InformationOrdered By: Xiang Kellogg on 04-18-2023 Estimated GFR (CKD-EPI) > 60.0 mL/Min [facility] Creatinine Clearance (Chem 64.32 [facility] Nucleated erythrocytes [Pres ence] in Blood by Automated countOrdered By: Xiang Kellogg on 04-18-2023 Nucleated RBC Auto Ql (Bld) 0.0 /100{WBC} 0-0.5 [facility] Platelet mean volume [Entiti c volume] in Blood by Automated countOrdered By: Xiang Kellogg on 04-18-2023 Platelet mean volume (Bld) [Entitic vol] 8.1 fL Normal 6.3-10.7 [facility] Comment on above: Performed By: #### L IPASE, CBC, CMP, HS TROP #### [facility] [address] [place] [address] [place] Platelets [#/volume] in Bloo d by Automated countOrdered By: Xiang Kellogg on 04-18-2023 Platelets (Bld) [#/Vol] 227 10*3/uL Normal 150-450 [facility] Comment on above: Performed By: #### L IPASE, CBC, CMP, HS TROP #### [address] Potassium [Moles/volume] in Serum or PlasmaOrdered By: Xiang Kellogg on 04-18-2023 Potassium [Moles/Vol] 3.2 mmol/L Low 3.5-5.1 [facility] Comment on above: Performed By: #### L IPASE, CBC, CMP, HS TROP #### [facility] [address] [place] [address] [place] Protein [Mass/volume] in Ser um or PlasmaOrdered By: Xiang Kellogg on 04-18-2023 Protein [Mass/Vol] 6.7 g/dL Normal 6.4-8.9 [facility] Comment on above: Performed By: #### L IPASE, CBC, CMP, HS TROP #### [address] Serum globulin measurement b y calculation (mass/volume)Ordered By: Xiang Kellogg on 04-18-2023 Globulin (S) [Mass/Vol] 2.2 g/dL [facility] Comment on above: Performed By: #### L IPASE, CBC, CMP, HS TROP #### [address] Serum or plasma albumin/glob ulin mass ratioOrdered By: Xiang Kellogg on 04-18-2023 Albumin/Globulin [Mass ratio] 2.0 {ratio} [facility] Comment on above: Performed By: #### L IPASE, CBC, CMP, HS TROP #### [address] Serum or plasma anion gap de terminationOrdered By: Xiang Kellogg on 04-18-2023 Anion gap [Moles/Vol] 10.0 mmol/L Normal 6.0-15.0 [facility] Comment on above: Performed By: #### L IPASE, CBC, CMP, HS TROP #### [address] Serum or plasma non-glucuron idated bilirubin measurement (mass/volume)Ordered By: Xiang Kellogg on 04-18-2023 Bilirubin.indirect [Mass/Vol] 0.3 mg/dL [facility] Sodium [Moles/volume] in Ser um or PlasmaOrdered By: Xiang Kellogg on 04-18-2023 Sodium [Moles/Vol] 140 mmol/L Normal 136-145 [facility] Comment on above: Performed By: #### L IPASE, CBC, CMP, HS TROP #### [facility] [address] [place] [address] Urea nitrogen [Mass/volume] in Serum or PlasmaOrdered By: Xiang Kellogg on 04-18-2023 Urea nitrogen [Mass/Vol] 7 mg/dL Normal 7-25 [facility] Comment on above: Performed By: #### L IPASE, CBC, CMP, HS TROP #### [address] abdomen pelvis w conon CT abdomen pelvis w con [facility] [place] [address] CT Scan Report Signed Patient: Chioma Arciniega MR#: [id number] : 1970 Acct:[id number] Age/Sex: 52 / F ADM Date: 04/11/23 Loc: ER Room: Type: [facility] ER Attending Dr: Copies to: [...] Nai Salazar M.D.04/12/2023 9:01 AM Dictation Location: [place] [address] Transcribed By: [facility] 04/12/23900 Dictated By: Nai Salazar MD 04/12/23 0856 Signed By: 04/12/23 09 Normal [facility] Activated partial thrombopla stin time (aPTT) in platelet poor plasma by coagulation aOrdered By: Rivera Lopez on 04-11-2023 aPTT Coag (PPP) [Time] 23.3 s 25.1-36.5 [facility] Comment on above: A hematocrit value g reater than 55% may lead to inaccurate results in coagulation testing. Patients having hematocrit values >55% require a special collection tube for coagulation studies. Please contact the laboratory at [phone] for redraw instructions. Alanine aminotransferase [En zymatic activity/volume] in Serum or PlasmaOrdered By: Rivera Lopez on 04-11-2023 ALT [Catalytic activity/Vol] 13 U/L Normal 7-52 [facility] Comment on above: Performed By: #### L IPASE, CBC, CMP, HS TROP #### [facility] [address] [place] [address] Albumin [Mass/volume] in Ser um or Plasma by Bromocresol green (BCG) dye binding methoOrdered By: Rivera Lopez on 04-11-2023 Albumin BCG dye [Mass/Vol] 4.5 g/dL 3.5-5.7 [facility] Alkaline phosphatase [Enzyma tic activity/volume] in Serum or PlasmaOrdered By: Rivera Lopez on 04-11-2023 ALP [Catalytic activity/Vol] 111 U/L High 34-104 [facility] Comment on above: Performed By: #### L IPASE, CBC, CMP, HS TROP #### [facility] [address] [place] [address] Aspartate aminotransferase [ Enzymatic activity/volume] in Serum or PlasmaOrdered By: Rivera Lopez on 04-11-2023 AST [Catalytic activity/Vol] 17 U/L Normal 13-39 [facility] Comment on above: Performed By: #### L IPASE, CBC, CMP, HS TROP #### [address] Automated basophil %Ordered By: Rivera Lopez on 04-11-2023 Basophils/100 WBC (Bld) 0.4 % Normal . [facility] Comment on above: Performed By: #### L IPASE, CBC, CMP, HS TROP #### [address] Automated basophil countOrde red By: Rivera Lopez on 04-11-2023 Basophils (Bld) [#/Vol] 0.1 10*3/uL Normal 0.0-0.2 [facility] Comment on above: Result Comment: PERF ORMED BY: [place] [address] PATHOLOGIST OPERATIONS EXECUTIVE PAULA RODRIGUES M.D. Performed By: #### L IPASE, CBC, CMP, HS TROP #### [facility] [address] [place] [address] Automated blood monocyte cou ntOrdered By: Rivera Lopez on 04-11-2023 Monocytes (Bld) [#/Vol] 0.6 10*3/uL Normal 0.0-0.8 [facility] Comment on above: Performed By: #### L IPASE, CBC, CMP, HS TROP #### [facility] [address] [place] [address] Automated eosinophil %Ordere d By: Rivera Lopez on 04-11-2023 Eosinophils/100 WBC (Bld) 0.0 % Normal . [facility] Comment on above: Performed By: #### L IPASE, CBC, CMP, HS TROP #### [address] Automated eosinophil countOr dered By: Rivera Lopez on 04-11-2023 Eosinophils (Bld) [#/Vol] 0.0 10*3/uL Normal 0.0-0.45 [facility] Comment on above: Performed By: #### L IPASE, CBC, CMP, HS TROP #### [facility] [address] [place] [address] Automated erythrocytes count in urine sediment (number/area)Ordered By: Rivera Lopez on 04-11-2023 RBC Auto (Urine sed) [#/Area] 0-1 [HPF] 0-4 [facility] Automated leukocytes count i n urine sediment (number/area)Ordered By: Rivera Lopez on 04-11-2023 WBC Auto (Urine sed) [#/Area] 3-4 [HPF] 0-4 [facility] Automated monocyte %Ordered By: Rivera Lopez on 04-11-2023 Monocytes/100 WBC (Bld) 4.3 % Normal . [facility] Comment on above: Performed By: #### L IPASE, CBC, CMP, HS TROP #### [facility] [address] [place] [address] Automated neutrophil %Ordere d By: Rivera Lopez on 04-11-2023 Neutrophils/100 WBC (Bld) 87.2 % Normal . [facility] Comment on above: Performed By: #### L IPASE, CBC, CMP, HS TROP #### [address] Automated urine color determ inationOrdered By: Rivera Lopez on 04-11-2023 Color (U) Yellow Normal Yellow [facility] Comment on above: Order Comment: Name Collection Type:: Clean-Voided Midstream Performed By: #### L IPASE, CBC, CMP, HS TROP #### [address] Basic Metabolic Panelon Creatinine Clr Calc Pharmacy 59.83 Normal [facility] Comment on above: Performed By: #### L IPASE, CBC, CMP, HS TROP #### [address] GFR/1.73 sq M.predicted MDRD (S/P/Bld) [Vol rate/Area] mL/min/{1.73_m2} Normal [facility] Comment on above: Performed By: #### L IPASE, CBC, CMP, HS TROP #### [address] Bilirubin Test strip Ql (U)O rdered By: Rivera Lopez on 04-11-2023 Bilirubin Ql (U) Negative Negative [facility] Bilirubin.direct [Mass/volum e] in Serum or PlasmaOrdered By: Rivera Lopez on 04-11-2023 Bilirubin.direct [Mass/Vol] 0.00 mg/dL 0.03-0.18 [facility] Comment on above: If the DBIL is less than 0.1, IBIL is not able to becalculated. Bilirubin.total [Mass/volume ] in Serum or PlasmaOrdered By: Rivera Lopez on 04-11-2023 Bilirubin [Mass/Vol] 0.3 mg/dL Normal 0.3-1.0 [facility] Comment on above: Performed By: #### L IPASE, CBC, CMP, HS TROP #### [address] Calcium [Mass/volume] in Ser um or PlasmaOrdered By: Rivera Lopez on 04-11-2023 Calcium [Mass/Vol] 10.3 mg/dL Normal 8.6-10.3 [facility] Comment on above: Performed By: #### L IPASE, CBC, CMP, HS TROP #### [place] [address] [place] Carbon dioxide, total [Moles /volume] in Serum or PlasmaOrdered By: Rivera Lopez on 04-11-2023 CO2 [Moles/Vol] 26.9 mmol/L Normal 21.0-31.0 [facility] Comment on above: Performed By: #### L IPASE, CBC, CMP, HS TROP #### [place] [address] [place] Chloride [Moles/volume] in S erika or PlasmaOrdered By: Rivera Lopez on 04-11-2023 Chloride [Moles/Vol] 103 mmol/L Normal 98-107 [facility] Comment on above: Performed By: #### L IPASE, CBC, CMP, HS TROP #### [place] [address] [place] Complete Blood Count Auto Di ffon 04-11-2023 Mean Corpuscular HGB Conc 33.2 g/dL Normal 32.0-35.0 [facility] Comment on above: Performed By: #### L IPASE, CBC, CMP, HS TROP #### [place] [address] [place] Monocytes/100 WBC (Bld) 17.01 % Normal 0.00-20.00 [facility] Comment on above: Performed By: #### L IPASE, CBC, CMP, HS TROP #### [place] [address] [place] NRBC% 0.0 /100{WBC} Normal 0-0.5 [facility] Comment on above: Performed By: #### L IPASE, CBC, CMP, HS TROP #### [place] [address] [place] Creatinine [Mass/volume] in Serum or PlasmaOrdered By: Rivera Lopez on 04-11-2023 Creatinine [Mass/Vol] 0.86 mg/dL Normal 0.60-1.20 [facility] Comment on above: Performed By: #### L IPASE, CBC, CMP, HS TROP #### [address] Dipstick and Microscopicon 0 04-11-2023 Appearance (U) Turbid Critically abnormal Clear [facility] Comment on above: Order Comment: Name Collection Type:: Clean-Voided Midstream Performed By: #### L IPASE, CBC, CMP, HS TROP #### [place] [address] [place] Bacteria,Urine None Seen Normal None Seen [facility] Comment on above: Order Comment: Name Collection Type:: Clean-Voided Midstream Performed By: #### L IPASE, CBC, CMP, HS TROP #### [address] Bilirubin,Urine Negative Normal Negative [facility] Comment on above: Order Comment: Name Collection Type:: Clean-Voided Midstream Performed By: #### L IPASE, CBC, CMP, HS TROP #### [address] Glucose Ql (U) Normal Normal Normal [facility] Comment on above: Order Comment: Name Collection Type:: Clean-Voided Midstream Performed By: #### L IPASE, CBC, CMP, HS TROP #### [address] Hyaline Casts,Urine None Seen Normal 0-8 [facility] Comment on above: Order Comment: Name Collection Type:: Clean-Voided Midstream Result Comment: PERF ORMED BY: [place] [address] PATHOLOGIST OPERATIONS EXECUTIVE PAULA RODRIGUES M.D. Performed By: #### L IPASE, CBC, CMP, HS TROP #### [address] Ketones Ql (U) Negative Normal Negative [facility] Comment on above: Order Comment: Name Collection Type:: Clean-Voided Midstream Performed By: #### L IPASE, CBC, CMP, HS TROP #### [address] Leukocyte esterase Test strip Ql (U) Negative Normal Negative [facility] Comment on above: Order Comment: Name Collection Type:: Clean-Voided Midstream Performed By: #### L IPASE, CBC, CMP, HS TROP #### [place] [address] [place] Nitrite,Urine Negative Normal Negative [facility] Comment on above: Order Comment: Name Collection Type:: Clean-Voided Midstream Performed By: #### L IPASE, CBC, CMP, HS TROP #### [place] [address] [place] Occult Blood,Urine Negative Normal Negative [facility] Comment on above: Order Comment: Name Collection Type:: Clean-Voided Midstream Result Comment: PERF ORMED BY: [place] [address] PATHOLOGIST OPERATIONS EXECUTIVE PAULA RODRIGUES M.D. Performed By: #### L IPASE, CBC, CMP, HS TROP #### [place] [address] [place] Protein,Urine Negative Normal Negative [facility] Comment on above: Order Comment: Name Collection Type:: Clean-Voided Midstream Performed By: #### L IPASE, CBC, CMP, HS TROP #### [place] [address] [place] RBC LM.HPF (Urine sed) [#/Area] 0 /[HPF] Normal 0-4 [facility] Comment on above: Order Comment: Name Collection Type:: Clean-Voided Midstream Performed By: #### L IPASE, CBC, CMP, HS TROP #### [place] [address] [place] Specificy [place],Urine > 1.050 High 1.001-1.03 0 [facility] Comment on above: Order Comment: Name Collection Type:: Clean-Voided Midstream Performed By: #### L IPASE, CBC, CMP, HS TROP #### [facility] [address] [place] [address] Squamous Epithelial Cell,Urine 0-1 Normal 0-2 [facility] Comment on above: Order Comment: Name Collection Type:: Clean-Voided Midstream Performed By: #### L IPASE, CBC, CMP, HS TROP #### [facility] [address] [place] [address] Urobilinogen,Urine Normal Normal Normal [facility] Comment on above: Order Comment: Name Collection Type:: Clean-Voided Midstream Performed By: #### L IPASE, CBC, CMP, HS TROP #### [address] WBC,Urine 3-4 Normal 0-4 [facility] Comment on above: Order Comment: Name Collection Type:: Clean-Voided Midstream Performed By: #### L IPASE, CBC, CMP, HS TROP #### [address] ECG 12 lead ECGon 04-11-2023 ECG 12 lead ECG [facility] [place] [address] Electrocardiograph Report Signed Patient: Chioma Arciniega MR#: [id number] : 1970 Acct:[id number] Age/Sex: 52 / F ADM Date: 04/11/23 Loc: ER Room: Type: [facility] ER Attending Dr: Ordering Provider: Rivera [...] was found Confirmed by Rivera Lopez DO ([id number]) on 04/12/2023 12:05:50 AM Referred By: Electronically Signed By:Rivera Lopez DO Transcribed By: MUS Signed By Rivera Lopez DO 4 0005 Normal [facility] Erythrocyte distribution wid th [Ratio] by Automated countOrdered By: Rivera Lopez on 04-11-2023 Erythrocyte distribution width (RBC) [Ratio] 13.6 % Normal 11.9-15.3 [facility] Comment on above: Performed By: #### L IPASE, CBC, CMP, HS TROP #### [facility] [address] Erythrocytes [#/volume] in B lood by Automated countOrdered By: Rivera Lopez on 04-11-2023 RBC (Bld) [#/Vol] 4.27 10*6/uL Normal 3.60-5.00 [facility] Comment on above: Performed By: #### L IPASE, CBC, CMP, HS TROP #### [facility] [address] [place] [id number] [place] Glucose [Mass/volume] in Ser um or PlasmaOrdered By: Rivera Lopez on 04-11-2023 Glucose [Mass/Vol] 121 mg/dL High 70-100 [facility] Comment on above: ADA recommended refe rence rangeRandom Glucose Reference Range is dependent on time and content of last meal. Glucose of more than 200 mg/dL in a nonstressed, ambulatory subject supports the diagnosis of Diabetes Mellitus. Result Comment: [place] Glucose Reference Range is dependent on time and content of last meal. Glucose of more than 200 mg/dL in a nonstressed, ambulatory subject supports the diagnosis of Diabetes Mellitus. ADA recommended reference range Performed By: #### L IPASE, CBC, CMP, HS TROP #### [facility] [address] [place] [id number] [place] Hematocrit [Volume Fraction] of Blood by Automated countOrdered By: Rivera Lopez on 04-11-2023 Hematocrit (Bld) [Volume fraction] 41.3 % Normal 34.0-46.4 [facility] Comment on above: Performed By: #### L IPASE, CBC, CMP, HS TROP #### [address] Hemoglobin [Mass/volume] in BloodOrdered By: Rivera Lopez on 04-11-2023 Hemoglobin (Bld) [Mass/Vol] 13.7 g/dL Normal 11.8-15.4 [facility] Comment on above: Performed By: #### L IPASE, CBC, CMP, HS TROP #### [address] Hepatic Panelon 04-11-2023 Albumin [Mass/Vol] 4.5 g/dL Normal 3.5-5.7 [facility] Comment on above: Performed By: #### L IPASE, CBC, CMP, HS TROP #### [address] Bilirubin,Indirect 0.3 mg/dL Normal [facility] Comment on above: Performed By: #### L IPASE, CBC, CMP, HS TROP #### [address] Bilirubin.indirect [Mass/Vol] 0.00 mg/dL Low 0.03-0.18 [facility] Comment on above: Result Comment: If t he DBIL is less than 0.1, IBIL is not able to be calculated. Performed By: #### L IPASE, CBC, CMP, HS TROP #### [address] INR in Platelet poor plasma by Coagulation assayOrdered By: Rivera Lopez on 04-11-2023 INR Coag (PPP) [Relative time] 1.0 {INR} Normal [facility] Comment on above: INR Therapeutic Rang [...] IPASE, CBC, CMP, HS TROP #### [facility] [address] [place] [address] Ketones Auto test strip (U) [Mass/Vol]Ordered By: Rivera Lopez on 04-11-2023 Ketones (U) [Mass/Vol] Negative Negative [facility] - UrinalysisOrder ed By: Rivera Lopez on 04-11-2023 Hyaline casts LM Ql (Urine sed) None seen [LPF] 0-8 [facility] Leukocytes [#/volume] correc aurelia for nucleated erythrocytes in Blood by Automated counOrdered By: Rivera Lopez on 04-11-2023 WBC corrected for nucl RBC Auto (Bld) [#/Vol] 13.9 10*3/uL 3.8-11.6 [facility] Leukocytes [#/volume] in Blo od by Automated countOrdered By: Rivera Lopez on 04-11-2023 WBC (Bld) [#/Vol] 13.9 10*3/uL High 3.8-11.6 [facility] Comment on above: Performed By: #### L IPASE, CBC, CMP, HS TROP #### [facility] [address] [place] [address] Lipase [Enzymatic activity/v olume] in Serum or PlasmaOrdered By: Rivera Lopez on 04-11-2023 Lipase [Catalytic activity/Vol] 26.0 U/L Normal 11.0-82.0 [facility] Comment on above: Result Comment: PERF ORMED BY: [place] [address] PATHOLOGIST OPERATIONS EXECUTIVE PAULA RODRIGUES M.D. Performed By: #### L IPASE, CBC, CMP, HS TROP #### [address] [address] [place] Lymphocytes [#/volume] in Bl ood by Automated countOrdered By: Rivera Lopez on 04-11-2023 Lymphocytes (Bld) [#/Vol] 1.1 10*3/uL Normal 1.00-4.8 [facility] Comment on above: Performed By: #### L IPASE, CBC, CMP, HS TROP #### [facility] [address] [place] [address] [place] Lymphocytes/100 leukocytes i n Blood by Automated countOrdered By: Rivera Lopez on 04-11-2023 Lymphocytes/100 WBC (Bld) 8.1 % Normal . [facility] Comment on above: Performed By: #### L IPASE, CBC, CMP, HS TROP #### [facility] [address] [place] [address] MCH [Entitic mass] by Automa aurelia countOrdered By: Rivera Lopez on 04-11-2023 MCH (RBC) [Entitic mass] 32.2 pg Normal 24.7-34.3 [facility] Comment on above: Performed By: #### L IPASE, CBC, CMP, HS TROP #### [facility] [address] [place] [address] MCHC Auto (RBC) [Mass/Vol]Or dered By: Rivera Lopez on 04-11-2023 MCHC (RBC) [Mass/Vol] 33.2 g/dL 32.0-35.0 [facility] MCV [Entitic volume] by Auto mated countOrdered By: Rivera Lopez on 04-11-2023 MCV (RBC) [Entitic vol] 96.8 fL Normal 80-100 [facility] Comment on above: Performed By: #### L IPASE, CBC, CMP, HS TROP #### [facility] [address] [place] [address] [place] Monocyte distribution width [Entitic volume] in Blood by AutomatedOrdered By: Rivera Lopez on 04-11-2023 Monocyte distribution width Auto (Bld) [Entitic vol] 17.01 % 0.00-20.00 [facility] Neutrophils [#/volume] in Bl ood by Automated countOrdered By: Rivera Lopez on 04-11-2023 Neutrophils (Bld) [#/Vol] 12.1 10*3/uL High 1.8-7.7 [facility] Comment on above: Performed By: #### L IPASE, CBC, CMP, HS TROP #### [facility] [address] [place] [address] Nitrite Test strip Ql (U)Ord ered By: Rivera Lopez on 04-11-2023 Nitrite Ql (U) Negative Negative [facility] No Panel InformationOrdered By: Rivera Lopez on 04-11-2023 Estimated GFR (CKD-EPI) > 60.0 mL/Min [facility] Creatinine Clearance (Chem 59.83 [facility] Nucleated erythrocytes [Pres ence] in Blood by Automated countOrdered By: Rivera Lopez on 04-11-2023 Nucleated RBC Auto Ql (Bld) 0.0 /100{WBC} 0-0.5 [facility] Partial Thromboplastin Timeo n 04-11-2023 aPTT Coag (Bld) [Time] 23.3 s Low 25.1-36.5 [facility] Comment on above: Result Comment: A he matocrit value greater than 55% may lead to inaccurate results in coagulation testing. Patients having hematocrit values >55% require a special collection tube for coagulation studies. Please contact the laboratory at [phone] for redraw instructions. PERFORMED BY: [place] [address] PATHOLOGIST OPERATIONS EXECUTIVE PAULA RODRIGUES M.D. Performed By: #### L IPASE, CBC, CMP, HS TROP #### [facility] [address] [place] [address] Platelet mean volume [Entiti c volume] in Blood by Automated countOrdered By: Rivera Lopez on 04-11-2023 Platelet mean volume (Bld) [Entitic vol] 7.7 fL Normal 6.3-10.7 [facility] Comment on above: Performed By: #### L IPASE, CBC, CMP, HS TROP #### [facility] [address] [place] [address] Platelets [#/volume] in Bloo d by Automated countOrdered By: Rivera Lopez on 04-11-2023 Platelets (Bld) [#/Vol] 262 10*3/uL Normal 150-450 [facility] Comment on above: Performed By: #### L IPASE, CBC, CMP, HS TROP #### [facility] [address] [place] [address] [place] Potassium [Moles/volume] in Serum or PlasmaOrdered By: Rivera Lopez on 04-11-2023 Potassium [Moles/Vol] 4.0 mmol/L Normal 3.5-5.1 [facility] Comment on above: Performed By: #### L IPASE, CBC, CMP, HS TROP #### [address] Protein Auto test strip (U) [Mass/Vol]Ordered By: Rivera Lopez on 04-11-2023 Protein (U) [Mass/Vol] Negative Negative [facility] Protein [Mass/volume] in Ser um or PlasmaOrdered By: Rivera Lopez on 04-11-2023 Protein [Mass/Vol] 6.9 g/dL Normal 6.4-8.9 [facility] Comment on above: Performed By: #### L IPASE, CBC, CMP, HS TROP #### [address] Prothrombin time (PT)Ordered By: Rivera Lopez on 04-11-2023 PT Coag (PPP) [Time] 11.2 s Normal 9.0-12.9 [facility] Comment on above: A hematocrit value g reater than 55% may lead to inaccurate results in coagulation testing. Patients having hematocrit values >55% require a special collection tube for coagulation studies. Please contact the laboratory at [phone] for redraw instructions. Result Comment: A he matocrit value greater than 55% may lead to inaccurate results in coagulation testing. Patients having hematocrit values >55% require a special collection tube for coagulation studies. Please contact the laboratory at [phone] for redraw instructions. Performed By: #### L IPASE, CBC, CMP, HS TROP #### [address] Serum globulin measurement b y calculation (mass/volume)Ordered By: Rivera Lopez on 04-11-2023 Globulin (S) [Mass/Vol] 2.4 g/dL [facility] Comment on above: Performed By: #### L IPASE, CBC, CMP, HS TROP #### [address] Serum or plasma albumin/glob ulin mass ratioOrdered By: Rivera Lopez on 04-11-2023 Albumin/Globulin [Mass ratio] 1.9 {ratio} [facility] Comment on above: Performed By: #### L IPASE, CBC, CMP, HS TROP #### [address] Serum or plasma anion gap de terminationOrdered By: Rivera Lopez on 04-11-2023 Anion gap [Moles/Vol] 14.1 mmol/L Normal 6.0-15.0 [facility] Comment on above: Performed By: #### L IPASE, CBC, CMP, HS TROP #### [address] Serum or plasma non-glucuron idated bilirubin measurement (mass/volume)Ordered By: Rivera Lopez on 04-11-2023 Bilirubin.indirect [Mass/Vol] 0.3 mg/dL [facility] Sodium [Moles/volume] in Ser um or PlasmaOrdered By: Rivera Lopez on 04-11-2023 Sodium [Moles/Vol] 140 mmol/L Normal 136-145 [facility] Comment on above: Performed By: #### L IPASE, CBC, CMP, HS TROP #### [address] Specific gravity Auto test s trip (U) [Rel density]Ordered By: Rivera Lopez on 04-11-2023 Specific gravity (U) [Rel density] > 1.050 1.001-1.03 0 [facility] Squamous epithelial cells de tection in urine sediment by light microscopyOrdered By: Rivera Lopez on 04-11-2023 Epithelial cells.squamous LM Ql (Urine sed) 0-1 [HPF] 0-2 [facility] Urea nitrogen [Mass/volume] in Serum or PlasmaOrdered By: Rivera Lopez on 04-11-2023 Urea nitrogen [Mass/Vol] 5 mg/dL Low 7-25 [facility] Comment on above: Performed By: #### L IPASE, CBC, CMP, HS TROP #### [facility] [address] Urine bacteria detection by automated methodOrdered By: Rivera Lopez on 04-11-2023 Bacteria Auto Ql (U) None seen None Seen [facility] Urine clarity by refractomet ry automatedOrdered By: Rivera Lopez on 04-11-2023 Clarity Refractometry automated (U) Turbid Clear [facility] Urine glucose measurement by automated test strip (mass/volume)Ordered By: Rivera Lopez on 04-11-2023 Glucose Auto test strip (U) [Mass/Vol] Normal mg/dL Normal [facility] Urine hemoglobin detection b y automated test stripOrdered By: Rivera Lopez on 04-11-2023 Hemoglobin Auto test strip Ql (U) Negative Negative [facility] Urine leukocyte esterase det ection by automated test stripOrdered By: Rivera Lopez on 04-11-2023 Leukocyte esterase Auto test strip Ql (U) Negative Negative [facility] Urine pH measurement by auto mated test stripOrdered By: Rivera Lopez on 04-11-2023 pH (U) 8.0 [pH] Normal 5.0-9.0 [facility] Comment on above: Order Comment: Name Collection Type:: Clean-Voided Midstream Performed By: #### L IPASE, CBC, CMP, HS TROP #### [facility] [address] [place] [address] [place] Urobilinogen Auto test strip (U) [Mass/Vol]Ordered By: Rivera Lopez on 04-11-2023 Urobilinogen (U) [Mass/Vol] Normal mg/dL Normal [facility] Alanine aminotransferase [En zymatic activity/volume] in Serum or PlasmaOrdered By: Nicole Posadas on 04-02-2023 ALT [Catalytic activity/Vol] 11 U/L Normal 7-52 [facility] Comment on above: Performed By: #### L IPASE, CBC, CMP, HS TROP #### [place] [address] [place] Albumin [Mass/volume] in Ser um or Plasma by Bromocresol green (BCG) dye binding methoOrdered By: Nicole Posadas on 04-02-2023 Albumin BCG dye [Mass/Vol] 4.2 g/dL 3.5-5.7 [facility] Alkaline phosphatase [Enzyma tic activity/volume] in Serum or PlasmaOrdered By: Nicole Posadas on 04-02-2023 ALP [Catalytic activity/Vol] 101 U/L Normal 34-104 [facility] Comment on above: Performed By: #### L IPASE, CBC, CMP, HS TROP #### [place] [address] [place] Aspartate aminotransferase [ Enzymatic activity/volume] in Serum or PlasmaOrdered By: Nicole Posadas on 04-02-2023 AST [Catalytic activity/Vol] 21 U/L Normal 13-39 [facility] Comment on above: Performed By: #### L IPASE, CBC, CMP, HS TROP #### [address] Automated basophil %Ordered By: Nicole Posadas on 04-02-2023 Basophils/100 WBC (Bld) 0.2 % Normal . [facility] Comment on above: Performed By: #### L IPASE, CBC, CMP, HS TROP #### [address] Automated basophil countOrde red By: Nicole Posadas on 04-02-2023 Basophils (Bld) [#/Vol] 0.0 10*3/uL Normal 0.0-0.2 [facility] Comment on above: Result Comment: PERF ORMED BY: [place] [address] PATHOLOGIST OPERATIONS EXECUTIVE PAULA RODRIGUES M.D. Performed By: #### L IPASE, CBC, CMP, HS TROP #### [address] Automated blood monocyte cou ntOrdered By: Nicole Posadas on 04-02-2023 Monocytes (Bld) [#/Vol] 0.6 10*3/uL Normal 0.0-0.8 [facility] Comment on above: Performed By: #### L IPASE, CBC, CMP, HS TROP #### [address] Automated eosinophil %Ordere d By: Nicole Posadas on 04-02-2023 Eosinophils/100 WBC (Bld) 1.7 % Normal . [facility] Comment on above: Performed By: #### L IPASE, CBC, CMP, HS TROP #### [address] Automated eosinophil countOr dered By: Nicole Posadas on 04-02-2023 Eosinophils (Bld) [#/Vol] 0.1 10*3/uL Normal 0.0-0.45 [facility] Comment on above: Performed By: #### L IPASE, CBC, CMP, HS TROP #### [address] Automated monocyte %Ordered By: Nicole Posadas on 04-02-2023 Monocytes/100 WBC (Bld) 9.8 % Normal . [facility] Comment on above: Performed By: #### L IPASE, CBC, CMP, HS TROP #### [address] Automated neutrophil %Ordere d By: Nicole Jjanand on 04-02-2023 Neutrophils/100 WBC (Bld) 59.1 % Normal . [facility] Comment on above: Performed By: #### L IPASE, CBC, CMP, HS TROP #### [address] Automated urine color determ inationOrdered By: Nicole Posadas on 04-02-2023 Color (U) Yellow Normal Yellow [facility] Comment on above: Order Comment: Name Collection Type:: Clean-Voided Midstream Performed By: #### U A #### [facility] [address] [place] [address] Bilirubin Test strip Ql (U)O rdered By: Nicole Posadas on 04-02-2023 Bilirubin Ql (U) Negative Negative [facility] Bilirubin.total [Mass/volume ] in Serum or PlasmaOrdered By: Nicole Posadas on 04-02-2023 Bilirubin [Mass/Vol] 0.3 mg/dL Normal 0.3-1.0 [facility] Comment on above: Performed By: #### L IPASE, CBC, CMP, HS TROP #### [facility] [address] [place] [address] CT abdomen pelvis w conon CT abdomen pelvis w con [facility] [place] [address] [place] [address] CT Scan Report Signed Patient: Chioma Arciniega MR#: [id number] : 1970 Acct:[id number] Age/Sex: 52 / F ADM Date: 04/02/23 Loc: ER Room: Type: [facility] ER Attending Dr: Copies to: Nicole [...] Paredes Jr., D.O.04/02/2023 6:15 PM Dictation Location: [place] [address] Transcribed By: [facility] 04/02/231814 Dictated By: Eyal Paredes Jr, DO 04/02/231808 Signed By: 04/02/231814 Normal [facility] Calcium [Mass/volume] in Ser um or PlasmaOrdered By: Nicole Posadas on 04-02-2023 Calcium [Mass/Vol] 9.7 mg/dL Normal 8.6-10.3 [facility] Comment on above: Performed By: #### L IPASE, CBC, CMP, HS TROP #### [facility] [address] [place] [address] Carbon dioxide, total [Moles /volume] in Serum or PlasmaOrdered By: Nicole Posadas on 04-02-2023 CO2 [Moles/Vol] 26.3 mmol/L Normal 21.0-31.0 [facility] Comment on above: Performed By: #### L IPASE, CBC, CMP, HS TROP #### [facility] [address] [place] [address] [place] Chloride [Moles/volume] in S erika or PlasmaOrdered By: Nicole Posadas on 04-02-2023 Chloride [Moles/Vol] 106 mmol/L Normal 98-107 [facility] Comment on above: Performed By: #### L IPASE, CBC, CMP, HS TROP #### [facility] [address] Complete Blood Count Auto Di ffon 04-02-2023 Mean Corpuscular HGB Conc 34.0 g/dL Normal 32.0-35.0 [facility] Comment on above: Performed By: #### L IPASE, CBC, CMP, HS TROP #### [address] Monocytes/100 WBC (Bld) 17.36 % Normal 0.00-20.00 [facility] Comment on above: Performed By: #### L IPASE, CBC, CMP, HS TROP #### [address] NRBC% 0.1 /100{WBC} Normal 0-0.5 [facility] Comment on above: Performed By: #### L IPASE, CBC, CMP, HS TROP #### [address] Comprehensive Metabolic Pane nimesh 04-02-2023 Albumin [Mass/Vol] 4.2 g/dL Normal 3.5-5.7 [facility] Comment on above: Performed By: #### L IPASE, CBC, CMP, HS TROP #### [address] Anion gap [Moles/Vol] Not performed Normal 6.0-15.0 [facility] Comment on above: Performed By: #### L IPASE, CBC, CMP, HS TROP #### [address] Creatinine Clr Calc Pharmacy 62.75 Normal [facility] Comment on above: Performed By: #### L IPASE, CBC, CMP, HS TROP #### [address] GFR/1.73 sq M.predicted MDRD (S/P/Bld) [Vol rate/Area] mL/min/{1.73_m2} Normal [facility] Comment on above: Performed By: #### L IPASE, CBC, CMP, HS TROP #### [address] Potassium Normal 3.5-5.1 [facility] Comment on above: Result Comment: Spec imen hemolyzed, redraw requested Performed By: #### L IPASE, CBC, CMP, HS TROP #### [place] [id number] [facility] Creatinine [Mass/volume] in Serum or PlasmaOrdered By: Nicole Posadas on 04-02-2023 Creatinine [Mass/Vol] 0.82 mg/dL Normal 0.60-1.20 [facility] Comment on above: Performed By: #### L IPASE, CBC, CMP, HS TROP #### [address] D-Dimer High Sensitivityon 0 04-02-2023 D-Dimer High Sensitivity < 200 Normal 0-243 [facility] Comment on above: [...] coagulation studies. Please contact the laboratory at [phone] for redraw instructions. PERFORMED BY: [place] [address] PATHOLOGIST OPERATIONS EXECUTIVE PAULA RODRIGUES M.D. Performed By: #### L IPASE, CBC, CMP, HS TROP #### [place] [id number] [facility] ECG 12 lead ECGon 04-02-2023 ECG 12 lead ECG [facility] [place] [address] [place] [address] Electrocardiograph Report Signed Patient: Chioma Arciniega MR#: [id number] : 1970 Acct:[id number] Age/Sex: 52 / F ADM Date: 04/02/23 Loc: ER Room: Type: [facility] ER Attending Dr: Ordering Provider: Nicole [...] Xiang Kellogg MD 04/02/23 1527 Normal [facility] Erythrocyte distribution wid th [Ratio] by Automated countOrdered By: Nicole Posadas on 04-02-2023 Erythrocyte distribution width (RBC) [Ratio] 13.3 % Normal 11.9-15.3 [facility] Comment on above: Performed By: #### L IPASE, CBC, CMP, HS TROP #### [facility] [address] Erythrocytes [#/volume] in B lood by Automated countOrdered By: Nicole Posadas on 04-02-2023 RBC (Bld) [#/Vol] 4.29 10*6/uL Normal 3.60-5.00 [facility] Comment on above: Performed By: #### L IPASE, CBC, CMP, HS TROP #### [facility] [address] Fibrin D-dimer [Presence] in Platelet poor plasma by Latex agglutinationOrdered By: Nicole Posadas on 04-02-2023 Fibrin D-dimer LA Ql (PPP) < 200 ng/mL 0-243 [facility] Comment on above: The reference range [...] coagulation studies. Please contact the laboratory at [phone] for redraw instructions. Glucose [Mass/volume] in Ser um or PlasmaOrdered By: Nicole Posadas on 04-02-2023 Glucose [Mass/Vol] 90 mg/dL Normal 70-100 [facility] Comment on above: ADA recommended refe rence rangeRandom Glucose Reference Range is dependent on time and content of last meal. Glucose of more than 200 mg/dL in a nonstressed, ambulatory subject supports the diagnosis of Diabetes Mellitus. Result Comment: [place] Glucose Reference Range is dependent on time and content of last meal. Glucose of more than 200 mg/dL in a nonstressed, ambulatory subject supports the diagnosis of Diabetes Mellitus. ADA recommended reference range Performed By: #### L IPASE, CBC, CMP, HS TROP #### [facility] [address] Hematocrit [Volume Fraction] of Blood by Automated countOrdered By: Nicole Posadas on 04-02-2023 Hematocrit (Bld) [Volume fraction] 41.8 % Normal 34.0-46.4 [facility] Comment on above: Performed By: #### L IPASE, CBC, CMP, HS TROP #### [facility] [address] Hemoglobin [Mass/volume] in BloodOrdered By: Nicole Posadas on 04-02-2023 Hemoglobin (Bld) [Mass/Vol] 14.2 g/dL Normal 11.8-15.4 [facility] Comment on above: Performed By: #### L IPASE, CBC, CMP, HS TROP #### [place] [address] [place] Ketones Auto test strip (U) [Mass/Vol]Ordered By: Nicole Posadas on 04-02-2023 Ketones (U) [Mass/Vol] Negative Negative [facility] Leukocytes [#/volume] correc aurelia for nucleated erythrocytes in Blood by Automated counOrdered By: Nicole Posadas on 04-02-2023 WBC corrected for nucl RBC Auto (Bld) [#/Vol] 6.2 10*3/uL 3.8-11.6 [facility] Leukocytes [#/volume] in Blo od by Automated countOrdered By: Nicole Posadas on 04-02-2023 WBC (Bld) [#/Vol] 6.2 10*3/uL Normal 3.8-11.6 [facility] Comment on above: Performed By: #### L IPASE, CBC, CMP, HS TROP #### [place] [address] [place] Lipase [Enzymatic activity/v olume] in Serum or PlasmaOrdered By: Nicole Posadas on 04-02-2023 Lipase [Catalytic activity/Vol] 186.0 U/L High 11.0-82.0 [facility] Comment on above: Result Comment: PERF ORMED BY: [place] [address] PATHOLOGIST OPERATIONS EXECUTIVE PAULA RODRIGUES M.D. Performed By: #### L IPASE, CBC, CMP, HS TROP #### [place] [address] [place] Lymphocytes [#/volume] in Bl ood by Automated countOrdered By: Nicole Posadas on 04-02-2023 Lymphocytes (Bld) [#/Vol] 1.8 10*3/uL Normal 1.00-4.8 [facility] Comment on above: Performed By: #### L IPASE, CBC, CMP, HS TROP #### [place] [address] [place] Lymphocytes/100 leukocytes i n Blood by Automated countOrdered By: Nicole Posadas on 04-02-2023 Lymphocytes/100 WBC (Bld) 29.2 % Normal . [facility] Comment on above: Performed By: #### L IPASE, CBC, CMP, HS TROP #### [facility] [address] [place] [address] MCH [Entitic mass] by Automa aurelia countOrdered By: Nicole Posadas on 04-02-2023 MCH (RBC) [Entitic mass] 33.1 pg Normal 24.7-34.3 [facility] Comment on above: Performed By: #### L IPASE, CBC, CMP, HS TROP #### [facility] [address] [place] [address] MCHC Auto (RBC) [Mass/Vol]Or dered By: Nicole Posadas on 04-02-2023 MCHC (RBC) [Mass/Vol] 34.0 g/dL 32.0-35.0 [facility] MCV [Entitic volume] by Auto mated countOrdered By: Nicole Posadas on 04-02-2023 MCV (RBC) [Entitic vol] 97.4 fL Normal 80-100 [facility] Comment on above: Performed By: #### L IPASE, CBC, CMP, HS TROP #### [address] Monocyte distribution width [Entitic volume] in Blood by AutomatedOrdered By: Nicole Posadas on 04-02-2023 Monocyte distribution width Auto (Bld) [Entitic vol] 17.36 % 0.00-20.00 [facility] Neutrophils [#/volume] in Bl ood by Automated countOrdered By: Nicole Posadas on 04-02-2023 Neutrophils (Bld) [#/Vol] 3.6 10*3/uL Normal 1.8-7.7 [facility] Comment on above: Performed By: #### L IPASE, CBC, CMP, HS TROP #### [facility] [address] [place] [address] Nitrite Test strip Ql (U)Ord ered By: Nicole Posadas on 04-02-2023 Nitrite Ql (U) Negative Negative [facility] No Panel InformationOrdered By: Nicole Posadas on 04-02-2023 Estimated GFR (CKD-EPI) > 60.0 mL/Min [facility] Creatinine Clearance (Chem 62.75 [facility] Nucleated erythrocytes [Pres ence] in Blood by Automated countOrdered By: Nicole Posadas on 04-02-2023 Nucleated RBC Auto Ql (Bld) 0.1 /100{WBC} 0-0.5 [facility] Platelet mean volume [Entiti c volume] in Blood by Automated countOrdered By: Nicole Posadas on 04-02-2023 Platelet mean volume (Bld) [Entitic vol] 8.3 fL Normal 6.3-10.7 [facility] Comment on above: Performed By: #### L IPASE, CBC, CMP, HS TROP #### [facility] [address] [place] [address] [place] Platelets [#/volume] in Bloo d by Automated countOrdered By: Nicole Posadas on 04-02-2023 Platelets (Bld) [#/Vol] 236 10*3/uL Normal 150-450 [facility] Comment on above: Performed By: #### L IPASE, CBC, CMP, HS TROP #### [facility] [address] [place] [address] [place] Potassium [Moles/volume] in Serum or PlasmaOrdered By: Nicole Posadas on 04-02-2023 Potassium [Moles/Vol] 4.3 mmol/L Normal 3.5-5.1 [facility] Comment on above: Result Comment: PERF ORMED BY: [place] [address] PATHOLOGIST OPERATIONS EXECUTIVE PAULA RODRIGUES M.D. Performed By: #### R LESLY K #### [place] [address] [place] Protein Auto test strip (U) [Mass/Vol]Ordered By: Nicole Posadas on 04-02-2023 Protein (U) [Mass/Vol] Negative Negative [facility] Protein [Mass/volume] in Ser um or PlasmaOrdered By: Nicole Posadas on 04-02-2023 Protein [Mass/Vol] 6.6 g/dL Normal 6.4-8.9 [facility] Comment on above: Performed By: #### L IPASE, CBC, CMP, HS TROP #### [facility] [address] Serum globulin measurement b y calculation (mass/volume)Ordered By: Nicole Posadas on 04-02-2023 Globulin (S) [Mass/Vol] 2.4 g/dL Normal [facility] Comment on above: Performed By: #### L IPASE, CBC, CMP, HS TROP #### [facility] [address] [place] [address] Serum or plasma albumin/glob ulin mass ratioOrdered By: Nicole Posadas on 04-02-2023 Albumin/Globulin [Mass ratio] 1.8 {ratio} [facility] Comment on above: Performed By: #### L IPASE, CBC, CMP, HS TROP #### [facility] [address] [place] [address] Serum or plasma anion gap de terminationOrdered By: Nicole Posadas on 04-02-2023 Anion gap [Moles/Vol] [facility] Comment on above: Test not performed Sodium [Moles/volume] in Ser um or PlasmaOrdered By: Nicole Posadas on 04-02-2023 Sodium [Moles/Vol] 137 mmol/L Normal 136-145 [facility] Comment on above: Performed By: #### L IPASE, CBC, CMP, HS TROP #### [facility] [address] [place] [address] Specific gravity Auto test s trip (U) [Rel density]Ordered By: Nicole Posadas on 04-02-2023 Specific gravity (U) [Rel density] 1.022 1.001-1.03 0 [facility] Troponin I High Sensitivityo n 04-02-2023 Troponin I High Sensitivity 2.6 pg/mL Normal 0.0-15.0 [facility] Comment on above: Result Comment: PERF ORMED BY: [place] [address] PATHOLOGIST OPERATIONS EXECUTIVE PAULA RODRIGUES M.D. Performed By: #### L IPASE, CBC, CMP, HS TROP #### [address] Troponin I.cardiac [Mass/vol ume] in Serum or Plasma by Detection limit <= 0.01 ng/Ordered By: Nicole Posadas on 04-02-2023 Troponin I.cardiac DL <= 0.01 ng/mL [Mass/Vol] 2.6 pg/mL 0.0-15.0 [facility] Urea nitrogen [Mass/volume] in Serum or PlasmaOrdered By: Nicole Posadas on 04-02-2023 Urea nitrogen [Mass/Vol] 7 mg/dL Normal 09-30 [facility] Comment on above: Performed By: #### L IPASE, CBC, CMP, HS TROP #### [address] Urinalysison 04-02-2023 Appearance (U) Clear Normal Clear [facility] Comment on above: Order Comment: Name Collection Type:: Clean-Voided Midstream Performed By: #### U A #### [address] Bilirubin,Urine Negative Normal Negative [facility] Comment on above: Order Comment: Name Collection Type:: Clean-Voided Midstream Performed By: #### U A #### [place] [address] [place] Glucose Ql (U) Normal Normal Normal [facility] Comment on above: Order Comment: Name Collection Type:: Clean-Voided Midstream Performed By: #### U A #### [address] Ketones Ql (U) Negative Normal Negative [facility] Comment on above: Order Comment: Name Collection Type:: Clean-Voided Midstream Performed By: #### U A #### [address] Leukocyte esterase Test strip Ql (U) Negative Normal Negative [facility] Comment on above: Order Comment: Name Collection Type:: Clean-Voided Midstream Performed By: #### U A #### [address] Nitrite,Urine Negative Normal Negative [facility] Comment on above: Order Comment: Name Collection Type:: Clean-Voided Midstream Performed By: #### U A #### [address] Occult Blood,Urine Negative Normal Negative [facility] Comment on above: Order Comment: Name Collection Type:: Clean-Voided Midstream Result Comment: PERF ORMED BY: [place] [address] PATHOLOGIST OPERATIONS EXECUTIVE PAULA RODRIGUES M.D. Performed By: #### U A #### [address] Protein,Urine Negative Normal Negative [facility] Comment on above: Order Comment: Name Collection Type:: Clean-Voided Midstream Performed By: #### U A #### [address] Specificy [place],Urine 1.022 Normal 1.001-1.03 0 [facility] Comment on above: Order Comment: Name Collection Type:: Clean-Voided Midstream Performed By: #### U A #### [address] Urobilinogen,Urine Normal Normal Normal [facility] Comment on above: Order Comment: Name Collection Type:: Clean-Voided Midstream Performed By: #### U A #### [place] [address] [place] Urine clarity by refractomet ry automatedOrdered By: Nicole Posadas on 04-02-2023 Clarity Refractometry automated (U) Clear Clear [facility] Urine glucose measurement by automated test strip (mass/volume)Ordered By: Nicole Posadas on 04-02-2023 Glucose Auto test strip (U) [Mass/Vol] Normal mg/dL Normal [facility] Urine hemoglobin detection b y automated test stripOrdered By: Nicole Posadas on 04-02-2023 Hemoglobin Auto test strip Ql (U) Negative Negative [facility] Urine leukocyte esterase det ection by automated test stripOrdered By: Nicole Posadas on 04-02-2023 Leukocyte esterase Auto test strip Ql (U) Negative Negative [facility] Urine pH measurement by auto mated test stripOrdered By: Nicole Posadas on 04-02-2023 pH (U) 5.5 [pH] Normal 5.0-9.0 [facility] Comment on above: Order Comment: Name Collection Type:: Clean-Voided Midstream Performed By: #### U A #### [address] Urobilinogen Auto test strip (U) [Mass/Vol]Ordered By: Nicole Posadas on 04-02-2023 Urobilinogen (U) [Mass/Vol] Normal mg/dL Normal [facility] Alanine aminotransferase [En zymatic activity/volume] in Serum or PlasmaOrdered By: Nicole Posadas on 11-09-2022 ALT [Catalytic activity/Vol] 12 U/L Normal 7-52 [facility] Comment on above: Performed By: #### C MP, LIPASE, CBC #### [place] [address] [place] Albumin [Mass/volume] in Ser um or Plasma by Bromocresol green (BCG) dye binding methoOrdered By: Nicole Posadas on 11-09-2022 Albumin BCG dye [Mass/Vol] 4.4 g/dL 3.5-5.7 [facility] Alkaline phosphatase [Enzyma tic activity/volume] in Serum or PlasmaOrdered By: Nicole Posadas on 11-09-2022 ALP [Catalytic activity/Vol] 126 U/L High 34-104 [facility] Comment on above: Performed By: #### C MP, LIPASE, CBC #### [place] [address] [place] Aspartate aminotransferase [ Enzymatic activity/volume] in Serum or PlasmaOrdered By: Nicole Posadas on 11-09-2022 AST [Catalytic activity/Vol] 17 U/L Normal 13-39 [facility] Comment on above: Performed By: #### C MP, LIPASE, CBC #### [address] Automated basophil %Ordered By: Nicole Posadas on 11-09-2022 Basophils/100 WBC (Bld) 0.9 % Normal . [facility] Comment on above: Performed By: #### C MP, LIPASE, CBC #### [address] Automated basophil countOrde red By: Nicole Posadas on 11-09-2022 Basophils (Bld) [#/Vol] 0.1 10*3/uL Normal 0.0-0.2 [facility] Comment on above: Result Comment: PERF ORMED BY: [place] [address] PATHOLOGIST OPERATIONS EXECUTIVE PAULA RODRIGUES M.D. Performed By: #### C MP, LIPASE, CBC #### [address] Automated blood monocyte cou ntOrdered By: Nicole Posadas on 11-09-2022 Monocytes (Bld) [#/Vol] 0.8 10*3/uL Normal 0.0-0.8 [facility] Comment on above: Performed By: #### C MP, LIPASE, CBC #### [address] Automated eosinophil %Ordere d By: Nicole Posadas on 11-09-2022 Eosinophils/100 WBC (Bld) 1.6 % Normal . [facility] Comment on above: Performed By: #### C MP, LIPASE, CBC #### [address] Automated eosinophil countOr dered By: Nicole Posadas on 11-09-2022 Eosinophils (Bld) [#/Vol] 0.1 10*3/uL Normal 0.0-0.45 [facility] Comment on above: Performed By: #### C MP, LIPASE, CBC #### [address] Automated monocyte %Ordered By: Nicole Posadas on 11-09-2022 Monocytes/100 WBC (Bld) 8.1 % Normal . [facility] Comment on above: Performed By: #### C MP, LIPASE, CBC #### [address] Automated neutrophil %Ordere d By: Nicole Posadas on 11-09-2022 Neutrophils/100 WBC (Bld) 65.4 % Normal . [facility] Comment on above: Performed By: #### C MP, LIPASE, CBC #### [address] Automated urine color determ inationOrdered By: Nicole Posadas on 11-09-2022 Color (U) Yellow Normal Yellow [facility] Comment on above: Order Comment: Name Collection Type:: Clean-Voided Midstream Performed By: #### L IPASE, CBC, CMP, HS TROP #### [address] Bilirubin Test strip Ql (U)O rdered By: Nicole Posadas on 11-09-2022 Bilirubin Ql (U) Negative Negative [facility] Bilirubin.total [Mass/volume ] in Serum or PlasmaOrdered By: Nicole Posadas on 11-09-2022 Bilirubin [Mass/Vol] 0.3 mg/dL Normal 0.3-1.0 [facility] Comment on above: Performed By: #### C MP, LIPASE, CBC #### [address] abdomen pelvis w conon CT abdomen pelvis w con [facility] [place] [address] CT Scan Report Signed Patient: Chioma Arciniega MR#: [id number] : 1970 Acct:[id number] Age/Sex: 52 / F ADM Date: 11/09/22 Loc: ER Room: Type: [facility] ER Attending Dr: Copies to: Nicole [...] M.D.11/09/2022 4:14 PM Dictation Location: [place] [address] Transcribed By: [facility] 11/09/22 1614 Dictated By: Rajeev Ulloa II, MD 11/09/22 1608 Signed By: 11/09/22 1614 Normal [facility] Calcium [Mass/volume] in Ser um or PlasmaOrdered By: Nicole Posadas on 11-09-2022 Calcium [Mass/Vol] 9.7 mg/dL Normal 8.6-10.3 [facility] Comment on above: Performed By: #### C MP, LIPASE, CBC #### [facility] [address] Carbon dioxide, total [Moles /volume] in Serum or PlasmaOrdered By: Nicole Posadas on 11-09-2022 CO2 [Moles/Vol] 28.6 mmol/L Normal 21.0-31.0 [facility] Comment on above: Performed By: #### C MP, LIPASE, CBC #### [address] Chloride [Moles/volume] in S erika or PlasmaOrdered By: Nicole Posadas on 11-09-2022 Chloride [Moles/Vol] 107 mmol/L Normal 98-107 [facility] Comment on above: Performed By: #### C MP, LIPASE, CBC #### [facility] [address] Complete Blood Count Auto Di ffon 11-09-2022 Mean Corpuscular HGB Conc 33.4 g/dL Normal 32.0-35.0 [facility] Comment on above: Performed By: #### C MP, LIPASE, CBC #### [address] Monocytes/100 WBC (Bld) 18.76 % Normal 0.00-20.00 [facility] Comment on above: Performed By: #### C MP, LIPASE, CBC #### [facility] [address] NRBC% 0.0 /100{WBC} Normal 0-0.5 [facility] Comment on above: Performed By: #### C MP, LIPASE, CBC #### [facility] [address] Comprehensive Metabolic Pane nimesh 11-09-2022 Albumin [Mass/Vol] 4.4 g/dL Normal 3.5-5.7 [facility] Comment on above: Performed By: #### C MP, LIPASE, CBC #### [facility] [address] [place] [address] Creatinine Clr Calc Pharmacy 69.00 Normal [facility] Comment on above: Performed By: #### C MP, LIPASE, CBC #### [address] GFR/1.73 sq M.predicted MDRD (S/P/Bld) [Vol rate/Area] mL/min/{1.73_m2} Normal [facility] Comment on above: Performed By: #### C MP, LIPASE, CBC #### [address] Creatinine [Mass/volume] in Serum or PlasmaOrdered By: Nicole Posadas on 11-09-2022 Creatinine [Mass/Vol] 0.78 mg/dL Normal 0.60-1.20 [facility] Comment on above: Performed By: #### C MP, LIPASE, CBC #### [address] ECG 12 lead ECGon 11-09-2022 ECG 12 lead ECG [facility] [place] [address] Electrocardiograph Report Signed Patient: hCioma Arciniega MR#: [id number] : 1970 Acct:[id number] Age/Sex: 52 / F ADM Date: 11/09/22 Loc: ER Room: Type: [facility] ER Attending Dr: Ordering Provider: Nicole [...] Agustin Llanes MD 06/29 0147 Normal [facility] Erythrocyte distribution wid th [Ratio] by Automated countOrdered By: Nicole Posadas on 11-09-2022 Erythrocyte distribution width (RBC) [Ratio] 13.6 % Normal 11.9-15.3 [facility] Comment on above: Performed By: #### C MP, LIPASE, CBC #### [facility] [address] Erythrocytes [#/volume] in B lood by Automated countOrdered By: Nicole Posadas on 11-09-2022 RBC (Bld) [#/Vol] 4.52 10*6/uL Normal 3.60-5.00 [facility] Comment on above: Performed By: #### C MP, LIPASE, CBC #### [facility] [address] [place] [address] [place] Glucose [Mass/volume] in Ser um or PlasmaOrdered By: Nicole Posadas on 11-09-2022 Glucose [Mass/Vol] 96 mg/dL Normal 70-100 [facility] Comment on above: ADA recommended refe rence rangeRandom Glucose Reference Range is dependent on time and content of last meal. Glucose of more than 200 mg/dL in a nonstressed, ambulatory subject supports the diagnosis of Diabetes Mellitus. Result Comment: [place] Glucose Reference Range is dependent on time and content of last meal. Glucose of more than 200 mg/dL in a nonstressed, ambulatory subject supports the diagnosis of Diabetes Mellitus. ADA recommended reference range Performed By: #### C MP, LIPASE, CBC #### [facility] [address] [place] [address] [place] Hematocrit [Volume Fraction] of Blood by Automated countOrdered By: Nicole Posadas on 11-09-2022 Hematocrit (Bld) [Volume fraction] 44.4 % Normal 34.0-46.4 [facility] Comment on above: Performed By: #### C MP, LIPASE, CBC #### [facility] [address] Hemoglobin [Mass/volume] in BloodOrdered By: Nicole Posadas on 11-09-2022 Hemoglobin (Bld) [Mass/Vol] 14.9 g/dL Normal 11.8-15.4 [facility] Comment on above: Performed By: #### C MP, LIPASE, CBC #### [facility] [address] Ketones Auto test strip (U) [Mass/Vol]Ordered By: Nicole Posadas on 11-09-2022 Ketones (U) [Mass/Vol] Negative Negative [facility] Leukocytes [#/volume] correc aurelia for nucleated erythrocytes in Blood by Automated counOrdered By: Nicole Posadas on 11-09-2022 WBC corrected for nucl RBC Auto (Bld) [#/Vol] 9.3 10*3/uL 3.8-11.6 [facility] Leukocytes [#/volume] in Blo od by Automated countOrdered By: Nicole Posadas on 11-09-2022 WBC (Bld) [#/Vol] 9.3 10*3/uL Normal 3.8-11.6 [facility] Comment on above: Performed By: #### C MP, LIPASE, CBC #### [address] Lipase [Enzymatic activity/v olume] in Serum or PlasmaOrdered By: Nicole Posadas on 11-09-2022 Lipase [Catalytic activity/Vol] 78.0 U/L Normal 11.0-82.0 [facility] Comment on above: Result Comment: PERF ORMED BY: [place] [address] PATHOLOGIST OPERATIONS EXECUTIVE PAULA RODRIGUES M.D. Performed By: #### C MP, LIPASE, CBC #### [facility] [address] [place] [address] Lymphocytes [#/volume] in Bl ood by Automated countOrdered By: Nicole Posadas on 11-09-2022 Lymphocytes (Bld) [#/Vol] 2.2 10*3/uL Normal 1.00-4.8 [facility] Comment on above: Performed By: #### C MP, LIPASE, CBC #### [address] Lymphocytes/100 leukocytes i n Blood by Automated countOrdered By: Nicole Posadas on 11-09-2022 Lymphocytes/100 WBC (Bld) 24.0 % Normal . [facility] Comment on above: Performed By: #### C MP, LIPASE, CBC #### [address] MCH [Entitic mass] by Automa aurelia countOrdered By: Nicole Posadas on 11-09-2022 MCH (RBC) [Entitic mass] 32.8 pg Normal 24.7-34.3 [facility] Comment on above: Performed By: #### C MP, LIPASE, CBC #### [address] MCHC Auto (RBC) [Mass/Vol]Or dered By: Nicole Posadas on 11-09-2022 MCHC (RBC) [Mass/Vol] 33.4 g/dL 32.0-35.0 [facility] MCV [Entitic volume] by Auto mated countOrdered By: Nicole Posadas on 11-09-2022 MCV (RBC) [Entitic vol] 98.2 fL Normal 80-100 [facility] Comment on above: Performed By: #### C MP, LIPASE, CBC #### [address] Monocyte distribution width [Entitic volume] in Blood by AutomatedOrdered By: Nicole Posadas on 11-09-2022 Monocyte distribution width Auto (Bld) [Entitic vol] 18.76 % 0.00-20.00 [facility] Neutrophils [#/volume] in Bl ood by Automated countOrdered By: Nicole Posadas on 11-09-2022 Neutrophils (Bld) [#/Vol] 6.1 10*3/uL Normal 1.8-7.7 [facility] Comment on above: Performed By: #### C MP, LIPASE, CBC #### [address] Nitrite Test strip Ql (U)Ord ered By: Nicole Posadas on 11-09-2022 Nitrite Ql (U) Negative Negative [facility] No Panel InformationOrdered By: Nicole Posadas on 11-09-2022 Estimated GFR (CKD-EPI) > 60.0 mL/Min [facility] Creatinine Clearance (Chem 69.00 [facility] Nucleated erythrocytes [Pres ence] in Blood by Automated countOrdered By: Nicole Posadas on 11-09-2022 Nucleated RBC Auto Ql (Bld) 0.0 /100{WBC} 0-0.5 [facility] Platelet mean volume [Entiti c volume] in Blood by Automated countOrdered By: Nicole Posadas on 11-09-2022 Platelet mean volume (Bld) [Entitic vol] 8.3 fL Normal 6.3-10.7 [facility] Comment on above: Performed By: #### C MP, LIPASE, CBC #### [address] Platelets [#/volume] in Bloo d by Automated countOrdered By: Nicole Posadas on 11-09-2022 Platelets (Bld) [#/Vol] 246 10*3/uL Normal 150-450 [facility] Comment on above: Performed By: #### C MP, LIPASE, CBC #### [place] [address] [place] Potassium [Moles/volume] in Serum or PlasmaOrdered By: Nicole Posadas on 11-09-2022 Potassium [Moles/Vol] 3.7 mmol/L Normal 3.5-5.1 [facility] Comment on above: Performed By: #### C MP, LIPASE, CBC #### [address] Protein Auto test strip (U) [Mass/Vol]Ordered By: Nicole Posadas on 11-09-2022 Protein (U) [Mass/Vol] Negative Negative [facility] Protein [Mass/volume] in Ser um or PlasmaOrdered By: Nicole Posadas on 11-09-2022 Protein [Mass/Vol] 7.1 g/dL Normal 6.4-8.9 [facility] Comment on above: Performed By: #### C MP, LIPASE, CBC #### [address] Serum globulin measurement b y calculation (mass/volume)Ordered By: Nicole Posadas on 11-09-2022 Globulin (S) [Mass/Vol] 2.7 g/dL Normal [facility] Comment on above: Performed By: #### C MP, LIPASE, CBC #### [address] Serum or plasma albumin/glob ulin mass ratioOrdered By: Nicole Posadas on 11-09-2022 Albumin/Globulin [Mass ratio] 1.6 {ratio} [facility] Comment on above: Performed By: #### C MP, LIPASE, CBC #### [address] Serum or plasma anion gap de terminationOrdered By: Nicole Posadas on 11-09-2022 Anion gap [Moles/Vol] 8.1 mmol/L Normal 6.0-15.0 [facility] Comment on above: Performed By: #### C MP, LIPASE, CBC #### [address] Sodium [Moles/volume] in Ser um or PlasmaOrdered By: Nicole Posadas on 11-09-2022 Sodium [Moles/Vol] 140 mmol/L Normal 136-145 [facility] Comment on above: Performed By: #### C MP, LIPASE, CBC #### [address] Specific gravity Auto test s trip (U) [Rel density]Ordered By: Nicole Posadas on 11-09-2022 Specific gravity (U) [Rel density] 1.012 1.001-1.03 0 [facility] Troponin I High Sensitivityo n 11-09-2022 Troponin I High Sensitivity 3.0 pg/mL Normal 0.0-15.0 [facility] Comment on above: Result Comment: PERF ORMED BY: [place] [address] PATHOLOGIST OPERATIONS EXECUTIVE PAULA RODRIGUES M.D. Performed By: #### H S TROP #### [facility] [address] [place] [address] Troponin I.cardiac [Mass/vol ume] in Serum or Plasma by Detection limit <= 0.01 ng/Ordered By: Nicole Posadas on 11-09-2022 Troponin I.cardiac DL <= 0.01 ng/mL [Mass/Vol] 3.0 pg/mL 0.0-15.0 [facility] Urea nitrogen [Mass/volume] in Serum or PlasmaOrdered By: Nicole Posadas on 11-09-2022 Urea nitrogen [Mass/Vol] 6 mg/dL Low 7-25 [facility] Comment on above: Performed By: #### C MP, LIPASE, CBC #### [facility] [address] [place] [address] [place] Urinalysison 11-09-2022 Appearance (U) Clear Normal Clear [facility] Comment on above: Order Comment: Name Collection Type:: Clean-Voided Midstream Performed By: #### L IPASE, CBC, CMP, HS TROP #### [address] Bilirubin,Urine Negative Normal Negative [facility] Comment on above: Order Comment: Name Collection Type:: Clean-Voided Midstream Performed By: #### L IPASE, CBC, CMP, HS TROP #### [facility] [address] [place] [address] [place] Glucose Ql (U) Normal Normal Normal [facility] Comment on above: Order Comment: Name Collection Type:: Clean-Voided Midstream Performed By: #### L IPASE, CBC, CMP, HS TROP #### [address] Ketones Ql (U) Negative Normal Negative [facility] Comment on above: Order Comment: Name Collection Type:: Clean-Voided Midstream Performed By: #### L IPASE, CBC, CMP, HS TROP #### [address] Leukocyte esterase Test strip Ql (U) Negative Normal Negative [facility] Comment on above: Order Comment: Name Collection Type:: Clean-Voided Midstream Performed By: #### L IPASE, CBC, CMP, HS TROP #### [place] [address] [place] Nitrite,Urine Negative Normal Negative [facility] Comment on above: Order Comment: Name Collection Type:: Clean-Voided Midstream Performed By: #### L IPASE, CBC, CMP, HS TROP #### [address] Occult Blood,Urine Negative Normal Negative [facility] Comment on above: Order Comment: Name Collection Type:: Clean-Voided Midstream Result Comment: PERF ORMED BY: [place] [address] PATHOLOGIST OPERATIONS EXECUTIVE PAULA RODRIGUES M.D. Performed By: #### L IPASE, CBC, CMP, HS TROP #### [address] Protein,Urine Negative Normal Negative [facility] Comment on above: Order Comment: Name Collection Type:: Clean-Voided Midstream Performed By: #### L IPASE, CBC, CMP, HS TROP #### [address] Specificy [place],Urine 1.012 Normal 1.001-1.03 0 [facility] Comment on above: Order Comment: Name Collection Type:: Clean-Voided Midstream Performed By: #### L IPASE, CBC, CMP, HS TROP #### [address] Urobilinogen,Urine Normal Normal Normal [facility] Comment on above: Order Comment: Name Collection Type:: Clean-Voided Midstream Performed By: #### L IPASE, CBC, CMP, HS TROP #### [facility] [address] [place] [id number] [facility] Urine clarity by refractomet ry automatedOrdered By: Nicole Posadas on 11-09-2022 Clarity Refractometry automated (U) Clear Clear [facility] Urine glucose measurement by automated test strip (mass/volume)Ordered By: Nicole Posadas on 11-09-2022 Glucose Auto test strip (U) [Mass/Vol] Normal mg/dL Normal [facility] Urine hemoglobin detection b y automated test stripOrdered By: Nicole Posadas on 11-09-2022 Hemoglobin Auto test strip Ql (U) Negative Negative [facility] Urine leukocyte esterase det ection by automated test stripOrdered By: Nicole Posadas on 11-09-2022 Leukocyte esterase Auto test strip Ql (U) Negative Negative [facility] Urine pH measurement by auto mated test stripOrdered By: Nicole Posadas on 11-09-2022 pH (U) 5.5 [pH] Normal 5.0-9.0 [facility] Comment on above: Order Comment: Name Collection Type:: Clean-Voided Midstream Performed By: #### L IPASE, CBC, CMP, HS TROP #### [facility] [address] [place], [place] [id number] [facility] Urobilinogen Auto test strip (U) [Mass/Vol]Ordered By: Nicole Posadas on 11-09-2022 Urobilinogen (U) [Mass/Vol] Normal mg/dL Normal [facility] UPPER EUSon 08-12-2022 [facility] Gastroenterology Patient Name: Chioma Rainey Procedure Date: 08/12/2022 11:09 AM Date of : 1970 Admit Type: Outpatient Age: 52 Room: EUS Proc Room 01 Gender: Female Note Status: Finalized Attending MD: Sabrina Dee MD, MPH, [id number] Procedure: Upper EUS Indications: Chronic pancreatitis, Epigastric abdominal pain, Celiac plexus block for pain secondary to chronic pancreatitis, Dysphagia, Follow-up of esophageal stenosis, For therapy of esophageal stenosis Providers: Sabrina Dee MD, MPH (Doctor), Kolby Gifford RN (Nurse), Elba Faustin (Nurse), Mary Gaviria, Application Security Specialist (Application Security Specialist) Referring MD: Alexander Nichols MD (Referring MD) [...] by the physician, the nurse and the pharmacy laboratory technician in the procedure room. Mental Status [...] abnor (more content not included)... LAB, [facility] Radiology Study observation (narrative) [facility] AMYLASEon 06-13-2022 Amylase [Catalytic activity/Vol] 92 U/L Normal 25-115 [facility] Comment on above: Performed By: #### L IPA, CMP, CRP, NAT #### [facility] [address] [place] [address] Dr. Keturah Fisher CBC AUTO DIFFon 06-13-2022 BASO # 0.1 103/ul Normal 0.0-0.1 [facility] Comment on above: Performed By: #### L IPA, CMP, CRP, NAT #### [facility] [address] [place] [address] Dr. Keturah Fisher Basophils/100 WBC (Bld) 0.7 % Normal 0.2-2.0 [facility] Comment on above: Performed By: #### L IPA, CMP, CRP, NAT #### [facility] [address] [place] [address] Dr. Keturah Fisher EO # 0.1 103/ul Normal 0.0-0.7 [facility] Comment on above: Performed By: #### L IPA, CMP, CRP, NAT #### [facility] [address] [place] [address] Dr. Keturah Fisher Eosinophils/100 WBC (Bld) 1.1 % Normal 0.9-7.0 [facility] Comment on above: Performed By: #### L IPA, CMP, CRP, NAT #### [facility] [address] [place] [address] Dr. Keturah Fisher Erythrocyte distribution width (RBC) [Ratio] 13.0 % Normal 11.0-15.0 [facility] Comment on above: Performed By: #### L IPA, CMP, CRP, NAT #### [facility] [address] [place] [address] Dr. Keturah Fisher Hematocrit (Bld) [Volume fraction] 40.5 % Normal 36.0-48.0 [facility] Comment on above: Performed By: #### L IPA, CMP, CRP, NAT #### [facility] [address] [place] [address] Dr. Keturah Fisher Hemoglobin (Bld) [Mass/Vol] 13.9 g/dL Normal 12.0-16.0 [facility] Comment on above: Performed By: #### L IPA, CMP, CRP, NAT #### [facility] [address] [place] [address] Dr. Keturah Fisher IG # 0.03 10e3/ul Normal 0.00-0.03 [facility] Comment on above: Performed By: #### L IPA, CMP, CRP, NAT #### [facility] [address] [place] [address] Dr. Keturah Fisher IG % 0.3 % Normal 0.0-0.5 [facility] Comment on above: Performed By: #### L IPA, CMP, CRP, NAT #### [facility] [address] [place] [address] Dr. Keturah Fisher LYMPH # 2.9 103/ul Normal 1.2-3.8 [facility] Comment on above: Performed By: #### L IPA, CMP, CRP, NAT #### [facility] [address] [place] [address] Dr. Keturah Fisher Lymphocytes/100 WBC (Bld) 25.0 % Normal 20.5-60.0 [facility] Comment on above: Performed By: #### L IPA, CMP, CRP, NAT #### [facility] [address] [place] [address] Dr. Keturah Fisher MANUAL DIFF REQ NO Normal [facility] Comment on above: Performed By: #### L IPA, CMP, CRP, NAT #### [facility] [address] [place] [address] Dr. Keturah Fisher MCH (RBC) [Entitic mass] 33.3 pg Normal 26.7-34.0 [facility] Comment on above: Performed By: #### L IPA, CMP, CRP, NAT #### [facility] [address] [place] [address] Dr. Keturah Fisher MCHC (RBC) [Mass/Vol] 34.3 g/dL Normal 29.9-35.2 [facility] Comment on above: Performed By: #### L IPA, CMP, CRP, NAT #### [facility] [address] [place] [address] Dr. Keturah Fisher MCV (RBC) [Entitic vol] 96.9 fL Normal 81.0-99.0 [facility] Comment on above: Performed By: #### L IPA, CMP, CRP, NAT #### [facility] [address] [place] [address] Dr. Keturah Fisher MONO # 0.7 103/ul Normal 0.3-0.8 [facility] Comment on above: Performed By: #### L IPA, CMP, CRP, NAT #### [facility] [address] [place] [address] Dr. Keturah Fisher Monocytes/100 WBC (Bld) 5.6 % Normal 1.7-12.0 [facility] Comment on above: Performed By: #### L IPA, CMP, CRP, NAT #### [facility] [address] [place] [address] Dr. Keturah Fisher NEUT # 7.8 103/ul Critically high 1.4-6.5 [facility] Comment on above: Performed By: #### L IPA, CMP, CRP, NAT #### [facility] [address] [place] [address] Dr. Keturah Fisher Neutrophils/100 WBC (Bld) 67.3 % Normal 43.0-75.0 [facility] Comment on above: Performed By: #### L IPA, CMP, CRP, NAT #### [facility] [address] [place] [address] Dr. Keturah Fisher Platelet mean volume (Bld) [Entitic vol] 9.5 fL Normal 9.5-13.5 [facility] Comment on above: Performed By: #### L IPA, CMP, CRP, NAT #### [facility] [address] [address] [address] Keturah Fisher PLT 227 103/ul Normal 150-450 [facility] Comment on above: Performed By: #### L IPA, CMP, CRP, NAT #### [facility] [address] [address] [address] Keturah Fisher RBC 4.18 106/ul Critically low 4.20-5.40 [facility] Comment on above: Performed By: #### L IPA, CMP, CRP, NAT #### [facility] [address] [place] [address] Dr. Keturah Fisher WBC 11.5 103/ul Critically high 4.0-11.0 [facility] Comment on above: Performed By: #### L IPA, CMP, CRP, NAT #### [facility] [address] [place] [address] Dr. Keturah Fisher LIPASEon 06-13-2022 Lipase [Catalytic activity/Vol] 168.0 U/L Normal 73.0-393.0 [facility] Comment on above: Performed By: #### L IPA, CMP, CRP, NAT #### [facility] [address] [place] [address] Dr. Keturah Fisher PROF 14(COMP METB)on 023 Albumin [Mass/Vol] 3.6 g/dL Normal 3.4-5.0 [facility] Comment on above: Performed By: #### L IPA, CMP, CRP, NAT #### [facility] [address] [place] [address] Dr. Keturah Fisher Albumin/Globulin [Mass ratio] 1.1 {ratio} Normal [facility] Comment on above: Performed By: #### L IPA, CMP, CRP, NAT #### [facility] [address] [place] [address] Dr. Keturah Fisher ALP [Catalytic activity/Vol] 132 U/L Critically high 46-116 [facility] Comment on above: Performed By: #### L IPA, CMP, CRP, NAT #### [facility] [address] [address] [address] Keturah Fisher ALT [Catalytic activity/Vol] 20 U/L Normal 14-59 [facility] Comment on above: Performed By: #### L IPA, CMP, CRP, NAT #### [facility] [address] [address] [address] Keturah Fisher Anion gap [Moles/Vol] 13.7 mmol/L Normal [facility] Comment on above: Performed By: #### L IPA, CMP, CRP, NAT #### [facility] [address] [address] [address] Keturah Fisher AST [Catalytic activity/Vol] 19 U/L Normal 15-37 [facility] Comment on above: Performed By: #### L IPA, CMP, CRP, NAT #### [facility] [address] [place] [address] Dr. Keturah Fisher Bilirubin [Mass/Vol] 0.1 mg/dL Critically low 0.2-1.0 [facility] Comment on above: Performed By: #### L IPA, CMP, CRP, NAT #### [facility] [address] [address] [address] Keturah Fisher Calcium [Mass/Vol] 10.1 mg/dL Normal 8.5-10.1 [facility] Comment on above: Performed By: #### L IPA, CMP, CRP, NAT #### [facility] [address] [address] [address] Keturah Fisher Chloride [Moles/Vol] 104 mmol/L Normal 98-107 [facility] Comment on above: Performed By: #### L IPA, CMP, CRP, NAT #### [facility] [address] [address] [address] Keturah Fisher CO2 [Moles/Vol] 26.7 mmol/L Normal 21.0-32.0 [facility] Comment on above: Performed By: #### L IPA, CMP, CRP, NAT #### [facility] [address] [address] [address] Keturah Fisher Creatinine [Mass/Vol] 0.83 mg/dL Normal 0.55-1.02 [facility] Comment on above: Performed By: #### L IPA, CMP, CRP, NAT #### [facility] [address] [place] [address] Dr. Keturah Fisher EGFR-AF GREENLANDIC >60 Normal >=60 [facility] Comment on above: Performed By: #### L IPA, CMP, CRP, NAT #### [facility] [address] [address] [address] Keturah Fisher EGFR-NON AF GREENLANDIC >60 Normal >=60 [facility] Comment on above: Performed By: #### L IPA, CMP, CRP, NAT #### [facility] [address] [place] [address] Dr. Keturah Fisher Globulin (S) [Mass/Vol] 3.4 g/dL Normal [facility] Comment on above: Performed By: #### L IPA, CMP, CRP, NAT #### [facility] [address] [place] [address] Dr. Keturah Fisher Glucose [Mass/Vol] 115 mg/dL Critically high 74-106 [facility] Comment on above: Performed By: #### L IPA, CMP, CRP, NAT #### [facility] [address] [place] [address] Dr. Keturah Fisher Potassium [Moles/Vol] 3.4 mmol/L Critically low 3.5-5.1 [facility] Comment on above: Performed By: #### L IPA, CMP, CRP, NAT #### [facility] [address] [place] [address] Dr. Keturah Fisher Protein [Mass/Vol] 7.0 g/dL Normal 6.4-8.2 [facility] Comment on above: Performed By: #### L IPA, CMP, CRP, NAT #### [facility] [address] [place] [address] Dr. Keturah Fisher Sodium [Moles/Vol] 141 mmol/L Normal 136-145 [facility] Comment on above: Performed By: #### L IPA, CMP, CRP, NAT #### [facility] [address] [address] [address] Keturah Fisher Urea nitrogen [Mass/Vol] 9.0 mg/dL Normal 7.0-18.0 [facility] Comment on above: Performed By: #### L IPA, CMP, CRP, NAT #### [facility] [id number] Keturah Fisher Urea nitrogen/Creatinine [Mass ratio] 10.8 mg/mg Normal [facility] Comment on above: Performed By: #### L IPA, CMP, CRP, NAT #### [facility] [address] [address] [address] Keturah Fisher XR ABD FLAT UP_PA [...] Date: 2022-06-13 17:10 Normal [facility] AMYLASEon 03-29-2022 Amylase [Catalytic activity/Vol] 141 U/L Critically high 25-115 [facility] Comment on above: Performed By: #### L IVER, LIPA, BMP, NAT ####[facility] [address] [place], [place] [address]PpDr. Keturah Fisher CBC AUTO DIFFon 03-29-2022 BASO # 0.1 103/ul Normal 0.0-0.1 [facility] Comment on above: Performed By: #### L IPA, CMP, CRP, NAT #### [facility] [id number] Keturah Fisher Basophils/100 WBC (Bld) 0.6 % Normal 0.2-2.0 [facility] Comment on above: Performed By: #### L IPA, CMP, CRP, NAT #### [facility] [address] [place] [address] Dr. Keturah Fisher EO # 0.1 103/ul Normal 0.0-0.7 [facility] Comment on above: Performed By: #### L IPA, CMP, CRP, NAT #### [facility] [address] [place] [address] Dr. Keturah Fisher Eosinophils/100 WBC (Bld) 0.7 % Critically low 0.9-7.0 [facility] Comment on above: Performed By: #### L IPA, CMP, CRP, NAT #### [facility] [address] [place] [address] Dr. Keturah Fisher Erythrocyte distribution width (RBC) [Ratio] 12.9 % Normal 11.0-15.0 [facility] Comment on above: Performed By: #### L IPA, CMP, CRP, NAT #### [facility] [address] [place] [address] Dr. Keturah Fisher Hematocrit (Bld) [Volume fraction] 39.7 % Normal 36.0-48.0 [facility] Comment on above: Performed By: #### L IPA, CMP, CRP, NAT #### [facility] [address] [place] [address] Dr. Keturah Fisher Hemoglobin (Bld) [Mass/Vol] 14.7 g/dL Normal 12.0-16.0 [facility] Comment on above: Performed By: #### L IPA, CMP, CRP, NAT #### [facility] [address] [place] [address] Dr. Keturah Fisher IG # 0.04 10e3/ul Critically high 0.00-0.03 [facility] Comment on above: Performed By: #### L IPA, CMP, CRP, NAT #### [facility] [address] [place] [address] Dr. Keturah Fisher IG % 0.4 % Normal 0.0-0.5 [facility] Comment on above: Performed By: #### L IPA, CMP, CRP, NAT #### [facility] [address] [place] [address] Dr. Keturah Fisher LYMPH # 2.1 103/ul Normal 1.2-3.8 [facility] Comment on above: Performed By: #### L IPA, CMP, CRP, NAT #### [facility] [address] [address] [address] Keturah Fisher Lymphocytes/100 WBC (Bld) 21.2 % Normal 20.5-60.0 [facility] Comment on above: Performed By: #### L IPA, CMP, CRP, NAT #### [facility] [address] [place] [address] Dr. Keturah Fisher MANUAL DIFF REQ NO Normal [facility] Comment on above: Performed By: #### L IPA, CMP, CRP, NAT #### [facility] [address] [place] [address] Dr. Keturah Fisher MCH (RBC) [Entitic mass] 33.0 pg Normal 26.7-34.0 [facility] Comment on above: Performed By: #### L IPA, CMP, CRP, NAT #### [facility] [address] [place] [address] Dr. Keturah Fisher MCHC (RBC) [Mass/Vol] 37.0 g/dL Critically high 29.9-35.2 [facility] Comment on above: Performed By: #### L IPA, CMP, CRP, NAT #### [facility] [address] [place] [address] Dr. Keturah Fisher MCV (RBC) [Entitic vol] 89.0 fL Normal 81.0-99.0 [facility] Comment on above: Performed By: #### L IPA, CMP, CRP, NAT #### [facility] [address] [place] [address] Dr. Keturah Fisher MONO # 1.0 103/ul Critically high 0.3-0.8 [facility] Comment on above: Performed By: #### L IPA, CMP, CRP, NAT #### [facility] [address] [place] [address] Dr. Keturah Fisher Monocytes/100 WBC (Bld) 10.3 % Normal 1.7-12.0 [facility] Comment on above: Performed By: #### L IPA, CMP, CRP, NAT #### [facility] [address] [address] [address] Keturah Fisher NEUT # 6.5 103/ul Normal 1.4-6.5 [facility] Comment on above: Performed By: #### L IPA, CMP, CRP, NAT #### [facility] [address] [place] [address] Dr. Keturah Fisher Neutrophils/100 WBC (Bld) 66.8 % Normal 43.0-75.0 [facility] Comment on above: Performed By: #### L IPA, CMP, CRP, NAT #### [facility] [address] [place] [address] Dr. Keturah Fisher Platelet mean volume (Bld) [Entitic vol] 9.2 fL Critically low 9.5-13.5 [facility] Comment on above: Performed By: #### L IPA, CMP, CRP, NAT #### [facility] [address] [place] [address] Dr. Keturah Fisher PLT 229 103/ul Normal 150-450 [facility] Comment on above: Performed By: #### L IPA, CMP, CRP, NAT #### [facility] [address] [place] [address] Dr. Keturah Fisher RBC 4.46 106/ul Normal 4.20-5.40 [facility] Comment on above: Performed By: #### L IPA, CMP, CRP, NAT #### [facility] [address] [place] [address] Dr. Keturah Fisher WBC 9.7 103/ul Normal 4.0-11.0 [facility] Comment on above: Performed By: #### L IPA, CMP, CRP, NAT #### [facility] [address] [place] [address] Dr. Keturah Fisher LACTATE/LACTIC ACIDon 2022 Lactate [Moles/Vol] 0.5 mmol/L Normal 0.4-1.9 [facility] Comment on above: Performed By: #### L IPA, CMP, CRP, NAT #### [facility] [address] [address] [address]Gopal Fisher LIPASEon 03-29-2022 Lipase [Catalytic activity/Vol] 308.0 U/L Normal 73.0-393.0 [facility] Comment on above: Performed By: #### L IVER, LIPA, BMP, NAT ####[facility] [address] [address]Dr. Keturah Fisher LIVER PROFILEon 03-29-2022 Albumin [Mass/Vol] 3.3 g/dL Critically low 3.4-5.0 Th e [facility] Comment on above: Performed By: #### L IVER, LIPA, BMP, NAT ####[facility] [address] [address]Dr. Keturah Fisher Albumin/Globulin [Mass ratio] 0.8 {ratio} Normal [facility] Comment on above: Performed By: #### L IVER, LIPA, BMP, NAT ####[facility] [address] [address]Dr. Keturah Fisher ALP [Catalytic activity/Vol] 182 U/L Critically high 46-116 [facility] Comment on above: Performed By: #### L IVER, LIPA, BMP, NAT ####[facility] [address] [address]Dr. Keturah Fisher ALT [Catalytic activity/Vol] 16 U/L Normal 14-59 [facility] Comment on above: Performed By: #### L IVER, LIPA, BMP, NAT ####[facility] [address] [address]Dr. Keturah Fisher AST [Catalytic activity/Vol] 26 U/L Normal 15-37 [facility] Comment on above: Performed By: #### L IVER, LIPA, BMP, NAT ####[facility] [address] [address]Dr. Keturah Fisher BILI, CONJUGATED 0.0 mg/dL Normal 0.0-0.2 [facility] Comment on above: Performed By: #### L IVER, LIPA, BMP, NAT ####[facility] [address] [address]Dr. Keturah Fisher Bilirubin [Mass/Vol] 0.3 mg/dL Normal 0.2-1.0 [facility] Comment on above: Performed By: #### L IVER, LIPA, BMP, NAT ####[facility] [address] [address]Dr. Keturah Fisher Globulin (S) [Mass/Vol] 3.9 g/dL Normal [facility] Comment on above: Performed By: #### L IVER, LIPA, BMP, NAT ####[facility] [address] [address]Dr. Keturah Fisher Protein [Mass/Vol] 7.2 g/dL Normal 6.4-8.2 [facility] Comment on above: Performed By: #### L IVER, LIPA, BMP, NAT ####[facility] [address] [place], [place] [address]Dr. Keturah Fisher PROF CHEM 8 (BAS METB)on Anion gap [Moles/Vol] 14.6 mmol/L Normal [facility] Comment on above: Performed By: #### L IVER, LIPA, BMP, NAT ####[facility] [address] [address]Dr. Keturah Fisher Calcium [Mass/Vol] 10.1 mg/dL Normal 8.5-10.1 [facility] Comment on above: Performed By: #### L IVER, LIPA, BMP, NAT ####[facility] [address] [place], [place] [address]Dr. Keturah Fisher Chloride [Moles/Vol] 104 mmol/L Normal 98-107 [facility] Comment on above: Performed By: #### L IVER, LIPA, BMP, NAT ####[facility] [address] [address]Dr. Keturah Fisher CO2 [Moles/Vol] 24.8 mmol/L Normal 21.0-32.0 [facility] Comment on above: Performed By: #### L IVER, LIPA, BMP, NAT ####[facility] [address] [address]Dr. Keturah Fisher Creatinine [Mass/Vol] 0.61 mg/dL Normal 0.55-1.02 [facility] Comment on above: Performed By: #### L IVER, LIPA, BMP, NAT ####[facility] [address] [address]Dr. Keturah Fisher EGFR-AF GREENLANDIC >60 Normal >=60 [facility] Comment on above: Performed By: #### L IVER, LIPA, BMP, NAT ####[facility] [address] [address]Dr. Keturah Fisher EGFR-NON AF GREENLANDIC >60 Normal >=60 [facility] Comment on above: Performed By: #### L IVER, LIPA, BMP, NAT ####[facility] [address] [place], [place] [address]Dr. Keturah Fisher Glucose [Mass/Vol] 98 mg/dL Normal 74-106 [facility] Comment on above: Performed By: #### L IVER, LIPA, BMP, NAT ####[facility] [address] [place], [place] [address]Dr. Keturah Fisher Potassium [Moles/Vol] 4.4 mmol/L Normal 3.5-5.1 [facility] Comment on above: Performed By: #### L IVER, LIPA, BMP, NAT ####[facility] [address] [address]Dr. Keturah Fisher Sodium [Moles/Vol] 139 mmol/L Normal 136-145 [facility] Comment on above: Performed By: #### L IVER, LIPA, BMP, NAT ####[facility] [address] [place], [place] [address]Dr. Keturah Fisher Urea nitrogen [Mass/Vol] 7.0 mg/dL Normal 7.0-18.0 [facility] Comment on above: Performed By: #### L IVER, LIPA, BMP, NAT ####[facility] [address] [place], [place] [address]Ea. Keturah Fisher Urea nitrogen/Creatinine [Mass ratio] 11.5 mg/mg Normal [facility] Comment on above: Performed By: #### L ROB CHIN BMP, AMY ####[facility] [address] [place], [place] [address]Ec. Keturah Fisher Albumin [Mass/volume] in Ser um or PlasmaOrdered By: Agustin Llanes on 03-22-2022 Albumin [Mass/Vol] 4.1 g/dL 3.2-5.5 [facility] Automated erythrocytes count in urine sediment (number/area)Ordered By: Agustin Llanes on 03-22-2022 RBC Auto (Urine sed) [#/Area] 3-4 [HPF] 0-4 [facility] Automated leukocytes count i n urine sediment (number/area)Ordered By: Agustin Llanes on 03-22-2022 WBC Auto (Urine sed) [#/Area] 10-19 [HPF] 0-4 [facility] Basophils Auto (Bld) [#/Vol] Ordered By: Agustin Llanes on 03-22-2022 Basophils (Bld) [#/Vol] 0.1 10*3/uL 0.0-0.2 [facility] Basophils/100 WBC Auto (Bld) Ordered By: Agustin Llanes on 03-22-2022 Basophils/100 WBC (Bld) 0.9 % . [facility] Bilirubin Test strip Ql (U)O rdered By: Agustin Llanes on 03-22-2022 Bilirubin Ql (U) Negative Negative [facility] Color Auto (U)Ordered By: Vita Llanes on 03-22-2022 Color (U) Yellow Yellow [facility] Creatinine and Glomerular fi ltration rate.predicted panel (S/P/Bld)Ordered By: Agustin Llanes on 03-22-2022 Creatinine [Mass/Vol] 0.74 mg/dL 0.44-1.03 [facility] Direct bilirubin measurement Ordered By: Agustin Llanes on 03-22-2022 Bilirubin.direct [Mass/Vol] 0.3 mg/dL 0.0-0.4 [facility] Eosinophils Auto (Bld) [#/Vo l]Ordered By: Agustin Llanes on 03-22-2022 Eosinophils (Bld) [#/Vol] 0.1 10*3/uL 0.0-0.45 [facility] Eosinophils/100 WBC Auto (Bl d)Ordered By: Agustin Llanes on 03-22-2022 Eosinophils/100 WBC (Bld) 0.7 % . [facility] Erythrocyte distribution wid th Auto (RBC) [Ratio]Ordered By: Agustin Llanes on 03-22-2022 Erythrocyte distribution width (RBC) [Ratio] 13.9 % 11.9-15.3 [facility] Estimated glomerular filtrat ion rate (GFR) non- AmericanOrdered By: Agustin Llanes on 03-22-2022 GFR/1.73 sq M.predicted among non-blacks MDRD (S/P/Bld) [Vol rate/Area] > 60 mL/Min [facility] Globulin Calc (S) [Mass/Vol] Ordered By: Agustin Llanes on 03-22-2022 Globulin (S) [Mass/Vol] 3.1 g/dL [facility] HCG ( test) IA.rapi d Ql (U)Ordered By: Agustin Llanes on 03-22-2022 HCG ( test) Ql (U) Negative [facility] Hematocrit Auto (Bld) [Volum e fraction]Ordered By: Agustin Llanes on 03-22-2022 Hematocrit (Bld) [Volume fraction] 45.7 % 34.0-46.4 [facility] Hemoglobin [Mass/volume] in BloodOrdered By: Agustin Llanes on 03-22-2022 Hemoglobin (Bld) [Mass/Vol] 15.2 g/dL 11.8-15.4 [facility] Ketones Auto test strip (U) [Mass/Vol]Ordered By: Agustin Llanes on 03-22-2022 Ketones (U) [Mass/Vol] Negative Negative [facility] - Chemistry and C hemistry - challengeOrdered By: Agustin Llanes on 03-22-2022 Lipase [Catalytic activity/Vol] 122.0 U/L 22-51 [facility] - UrinalysisOrder ed By: Agustin Llanes on 03-22-2022 Hyaline casts LM Ql (Urine sed) 0-8 [LPF] 0-8 [facility] Leukocytes [#/volume] correc aurelia for nucleated erythrocytes in Blood by Automated counOrdered By: Agustin Llanes on 03-22-2022 WBC corrected for nucl RBC Auto (Bld) [#/Vol] 12.4 10*3/uL 3.8-11.6 [facility] Lymphocytes Auto (Bld) [#/Vo l]Ordered By: Agustin Llanes on 03-22-2022 Lymphocytes (Bld) [#/Vol] 2.2 10*3/uL 1.00-4.8 [facility] Lymphocytes/100 WBC Auto (Bl d)Ordered By: Agustin Llanes on 03-22-2022 Lymphocytes/100 WBC (Bld) 18.0 % . [facility] MCH Auto (RBC) [Entitic mass ]Ordered By: Agustin Llanes on 03-22-2022 MCH (RBC) [Entitic mass] 32.5 pg 24.7-34.3 [facility] MCHC Auto (RBC) [Mass/Vol]Or dered By: Agustin Llanes on 03-22-2022 MCHC (RBC) [Mass/Vol] 33.2 g/dL 32.0-35.0 [facility] MCV Auto (RBC) [Entitic vol] Ordered By: Agustin Llanes on 03-22-2022 MCV (RBC) [Entitic vol] 98.0 fL 80-100 [facility] Monocyte distribution width [Entitic volume] in Blood by AutomatedOrdered By: Agustin Llanes on 03-22-2022 Monocyte distribution width Auto (Bld) [Entitic vol] 18.78 % 0.00-20.00 [facility] Monocytes Auto (Bld) [#/Vol] Ordered By: Agustin Llanes on 03-22-2022 Monocytes (Bld) [#/Vol] 1.0 10*3/uL 0.0-0.8 [facility] Monocytes/100 WBC Auto (Bld) Ordered By: Agustin Llanes on 03-22-2022 Monocytes/100 WBC (Bld) 8.0 % . [facility] Neutrophils Auto (Bld) [#/Vo l]Ordered By: Agustin Llanes on 03-22-2022 Neutrophils (Bld) [#/Vol] 9.0 10*3/uL 1.8-7.7 [facility] Neutrophils/100 WBC Auto (Bl d)Ordered By: Agustin Llanes on 03-22-2022 Neutrophils/100 WBC (Bld) 72.4 % . [facility] Nitrite Test strip Ql (U)Ord ered By: Agustin Llanes on 03-22-2022 Nitrite Ql (U) Positive Negative [facility] [facility] Panel InformationOrdered By: Agustin Llanes on 03-22-2022 Estimated GFR () > 60 mL/Min [facility] Comment on above: GFR estimated refere nce range: According to KDOQI guidelines, <60 ml/min/1.73m2 is sufficient to diagnose a patient with chronic kidney disease. Pharmacy Creatinine Clearance (Chem 70.34 [facility] Nucleated erythrocytes [Pres ence] in Blood by Automated countOrdered By: Agustin Llanes on 03-22-2022 Nucleated RBC Auto Ql (Bld) 0.0 /100{WBC} 0-0.5 [facility] Platelet mean volume Auto (B ld) [Entitic vol]Ordered By: Agustin Llanes on 03-22-2022 Platelet mean volume (Bld) [Entitic vol] 8.0 fL 6.3-10.7 [facility] Platelets Auto (Bld) [#/Vol] Ordered By: Agustin Llanes on 03-22-2022 Platelets (Bld) [#/Vol] 266 10*3/uL 150-450 [facility] Protein Auto test strip (U) [Mass/Vol]Ordered By: Agustin Llanes on 03-22-2022 Protein (U) [Mass/Vol] Negative Negative [facility] Protein [Mass/volume] in Ser um or PlasmaOrdered By: Agustin Llanes on 03-22-2022 Protein [Mass/Vol] 7.2 g/dL 6.1-7.9 [facility] RBC Auto (Bld) [#/Vol]Ordere d By: Agustin Llanes on 03-22-2022 RBC (Bld) [#/Vol] 4.67 10*6/uL 3.60-5.00 [facility] Serum or plasma alanine hughes otransferase measurement without P-5'-P (enzymatic activiOrdered By: Agustin Llanes on 03-22-2022 ALT No additional P-5'-P [Catalytic activity/Vol] 19 U/L 10-60 [facility] Serum or plasma albumin/glob ulin mass ratioOrdered By: Agustin Llanes on 03-22-2022 Albumin/Globulin [Mass ratio] 1.3 {ratio} [facility] Serum or plasma alkaline jaqueline sphatase measurement (enzymatic activity/volume)Ordered By: Agustin Llanes on 03-22-2022 ALP [Catalytic activity/Vol] 156 U/L 32-92 [facility] Serum or plasma anion gap de terminationOrdered By: Agustin Llanes on 03-22-2022 Anion gap [Moles/Vol] 12.6 mmol/L 6.0-15.0 [facility] Serum or plasma aspartate am inotransferase measurement (enzymatic activity/volume)Ordered By: Agustin Llanes on 03-22-2022 AST [Catalytic activity/Vol] 29 U/L 10-42 [facility] Serum or plasma calcium priscilla urement (mass/volume)Ordered By: Agustin Llanes on 03-22-2022 Calcium [Mass/Vol] 9.9 mg/dL 8.2-10.2 [facility] Serum or plasma chloride daron surement (moles/volume)Ordered By: Agustin Llanes on 03-22-2022 Chloride [Moles/Vol] 103 mmol/L 95-114 [facility] [place] Serum or plasma glucose priscilla urement (mass/volume)Ordered By: Agustin Llanes on 03-22-2022 Glucose [Mass/Vol] 106 mg/dL 70-100 [facility] Comment on above: ADA recommended refe rence rangeRandom Glucose Reference Range is dependent on time and content of last meal. Glucose of more than 200 mg/dL in a nonstressed, ambulatory subject supports the diagnosis of Diabetes Mellitus. Serum or plasma non-glucuron idated bilirubin measurement (mass/volume)Ordered By: Agustin Llanes on 03-22-2022 Bilirubin.indirect [Mass/Vol] 0.2 mg/dL [facility] Serum or plasma potassium me asurement (moles/volume)Ordered By: Agustin Llanes on 03-22-2022 Potassium [Moles/Vol] 4.5 mmol/L 3.5-5.1 [facility] Serum or plasma sodium measu rement (moles/volume)Ordered By: Agustin Llanes on 03-22-2022 Sodium [Moles/Vol] 138 mmol/L 136-146 [facility] Serum or plasma total biliru bin measurement (mass/volume)Ordered By: Agustin Llanes on 03-22-2022 Bilirubin [Mass/Vol] 0.5 mg/dL 0.3-1.2 [facility] Serum or plasma total carbon dioxide measurement (moles/volume)Ordered By: Agustin Llanes on 03-22-2022 CO2 [Moles/Vol] 26.9 mmol/L 22.0-30.0 [facility] Serum or plasma urea nitroge n measurement (mass/volume)Ordered By: Agustin Llanes on 03-22-2022 Urea nitrogen [Mass/Vol] 8 mg/dL 9-23 [facility] Specific gravity Auto test s trip (U) [Rel density]Ordered By: Agustin Llanes on 03-22-2022 Specific gravity (U) [Rel density] 1.011 1.001-1.03 0 [facility] Squamous epithelial cells de tection in urine sediment by light microscopyOrdered By: Agustin Llanes on 03-22-2022 Epithelial cells.squamous LM Ql (Urine sed) 1-2 [HPF] 0-2 [facility] Urine bacteria detection by automated methodOrdered By: Agustin Llanes on 03-22-2022 Bacteria Auto Ql (U) 1+ None Seen [facility] Urine clarity by refractomet ry automatedOrdered By: Agustin Llanes on 03-22-2022 Clarity Refractometry automated (U) Clear Clear [facility] Urine glucose measurement by automated test strip (mass/volume)Ordered By: Agustin Llanes on 03-22-2022 Glucose Auto test strip (U) [Mass/Vol] Normal mg/dL Normal [facility] Urine hemoglobin detection b y automated test stripOrdered By: Agustin Llanes on 03-22-2022 Hemoglobin Auto test strip Ql (U) Negative Negative [facility] Urine leukocyte esterase det ection by automated test stripOrdered By: Agustin Llanes on 03-22-2022 Leukocyte esterase Auto test strip Ql (U) 2+ Negative [facility] Urobilinogen Auto test strip (U) [Mass/Vol]Ordered By: Agustin Llanes on 03-22-2022 Urobilinogen (U) [Mass/Vol] Normal mg/dL Normal [facility] WBC Auto (Bld) [#/Vol]Ordere d By: Agustin Llanes on 03-22-2022 WBC (Bld) [#/Vol] 12.4 10*3/uL 3.8-11.6 [facility] pH Auto test strip (U)Ordere d By: Agustin Llanes on 03-22-2022 pH (U) 5.5 [pH] 5.0-9.0 [facility] AMYLASEon 03-19-2022 Amylase [Catalytic activity/Vol] 297 U/L Critically high 25-115 [facility] Comment on above: Performed By: #### L IPA, CMP, CRP, NAT #### [facility] [address] [address] [address] Keturah Fisher CBC AUTO DIFFon 03-19-2022 BASO # 0.1 103/ul Normal 0.0-0.1 [facility] Comment on above: Performed By: #### L IPA, CMP, CRP, NAT #### [facility] [address] [address] [address] Keturah Fisher Basophils/100 WBC (Bld) 0.6 % Normal 0.2-2.0 [facility] Comment on above: Performed By: #### L IPA, CMP, CRP, NAT #### [facility] [address] [address] [address] Keturah Fisher EO # 0.1 103/ul Normal 0.0-0.7 [facility] Comment on above: Performed By: #### L IPA, CMP, CRP, NAT #### [facility] [address] [address] [address] Keturah Fisher Eosinophils/100 WBC (Bld) 0.5 % Critically low 0.9-7.0 [facility] Comment on above: Performed By: #### L IPA, CMP, CRP, NAT #### [facility] [address] [address] [address] Keturah Fisher Erythrocyte distribution width (RBC) [Ratio] 13.4 % Normal 11.0-15.0 [facility] Comment on above: Performed By: #### L IPA, CMP, CRP, NAT #### [facility] [address] [place] [address] Dr. Keturah Fisher Hemoglobin (Bld) [Mass/Vol] 15.7 g/dL Normal 12.0-16.0 [facility] Comment on above: Performed By: #### L IPA, CMP, CRP, NAT #### [facility] [address] [place] [address] Dr. Keturah Fisher IG # 0.06 10e3/ul Critically high 0.00-0.03 [facility] Comment on above: Performed By: #### L IPA, CMP, CRP, NAT #### [facility] [address] [place] [address] Dr. Keturah Fisher IG % 0.4 % Normal 0.0-0.5 [facility] Comment on above: Performed By: #### L IPA, CMP, CRP, NAT #### [facility] [address] [place] [address] Dr. Keturah Fisher LYMPH # 2.6 103/ul Normal 1.2-3.8 [facility] Comment on above: Performed By: #### L IPA, CMP, CRP, NAT #### [facility] [address] [place] [address] Dr. Keturah Fisher Lymphocytes/100 WBC (Bld) 18.1 % Critically low 20.5-60.0 [facility] Comment on above: Performed By: #### L IPA, CMP, CRP, NAT #### [facility] [address] [place] [address] Dr. Keturah Fisher MANUAL DIFF REQ NO Normal [facility] Comment on above: Performed By: #### L IPA, CMP, CRP, NAT #### [facility] [address] [place] [address] Dr. Keturah Fisher MCH (RBC) [Entitic mass] 32.4 pg Normal 26.7-34.0 [facility] Comment on above: Performed By: #### L IPA, CMP, CRP, NAT #### [facility] [address] [place] [address] Dr. Keturah Fisher MCHC (RBC) [Mass/Vol] 32.5 g/dL Normal 29.9-35.2 [facility] Comment on above: Performed By: #### L IPA, CMP, CRP, NAT #### [facility] [address] [address] [address] Keturah Fisher MCV (RBC) [Entitic vol] 99.8 fL Critically high 81.0-99.0 [facility] Comment on above: Performed By: #### L IPA, CMP, CRP, NAT #### [facility] [address] [place] [address] Dr. Keturah Fisher MONO # 0.9 103/ul Critically high 0.3-0.8 [facility] Comment on above: Performed By: #### L IPA, CMP, CRP, NAT #### [facility] [address] [place] [address] Dr. Keturah Fisher Monocytes/100 WBC (Bld) 5.9 % Normal 1.7-12.0 [facility] Comment on above: Performed By: #### L IPA, CMP, CRP, NAT #### [facility] [address] [place] [address] Dr. Keturah Fisher NEUT # 10.8 103/ul Critically high 1.4-6.5 [facility] Comment on above: Performed By: #### L IPA, CMP, CRP, NAT #### [facility] [address] [address] [address] Keturah Fisher Neutrophils/100 WBC (Bld) 74.5 % Normal 43.0-75.0 [facility] Comment on above: Performed By: #### L IPA, CMP, CRP, NAT #### [facility] [address] [address] [address] Keturah Fisher Platelet mean volume (Bld) [Entitic vol] 9.7 fL Normal 9.5-13.5 [facility] Comment on above: Performed By: #### L IPA, CMP, CRP, NAT #### [facility] [address] [place] [address] Dr. Keturah Fisher PLT 279 103/ul Normal 150-450 [facility] Comment on above: Performed By: #### L IPA, CMP, CRP, NAT #### [facility] [address] [place], [place] [address] Dr. Keturah Fisher RBC 4.84 106/ul Normal 4.20-5.40 [facility] Comment on above: Performed By: #### L IPA, CMP, CRP, NAT #### [facility] [address] [place], [place] [address] Dr. Keturah Fisher WBC 14.5 103/ul Critically high 4.0-11.0 [facility] Comment on above: Performed By: #### L IPA, CMP, CRP, NAT #### [facility] [address] [place], [place] [address] ABD/PELVIS WO CONon [...] by: AGUSTIN HIGHTOWER Date: 2022-03-19 19:10 Normal [facility] LIPASEon 03-19-2022 Lipase [Catalytic activity/Vol] 1573.0 U/L Critically high 73.0-393.0 [facility] Comment on above: Performed By: #### L IPA, CMP, CRP, NAT #### [facility] [address] [place] [address] Dr. Keturah Fisher PROF 14(COMP METB)on 023 Albumin [Mass/Vol] 4.3 g/dL Normal 3.4-5.0 [facility] Comment on above: Performed By: #### L IPA, CMP, CRP, NAT #### [facility] [address] [place] [address] Dr. Keturah Fisher Albumin/Globulin [Mass ratio] 1.1 {ratio} Normal [facility] Comment on above: Performed By: #### L IPA, CMP, CRP, NAT #### [facility] [address] [place] [address] Dr. Keturah Fisher ALP [Catalytic activity/Vol] 222 U/L Critically high 46-116 [facility] Comment on above: Performed By: #### L IPA, CMP, CRP, NAT #### [facility] [address] [address] [address] Keturah Fisher ALT [Catalytic activity/Vol] 18 U/L Normal 14-59 [facility] Comment on above: Performed By: #### L IPA, CMP, CRP, NAT #### [facility] [address] [place] [address] Dr. Keturah Fisher Anion gap [Moles/Vol] 10.7 mmol/L Normal [facility] Comment on above: Performed By: #### L IPA, CMP, CRP, NAT #### [facility] [address] [place] [address] Dr. Keturah Fisher AST [Catalytic activity/Vol] 19 U/L Normal 15-37 [facility] Comment on above: Performed By: #### L IPA, CMP, CRP, NAT #### [facility] [address] [place] [address] Dr. Keturah Fisher Bilirubin [Mass/Vol] 0.2 mg/dL Normal 0.2-1.0 [facility] Comment on above: Performed By: #### L IPA, CMP, CRP, NAT #### [facility] [address] [place] [address] Dr. Keturah Fisher Calcium [Mass/Vol] 10.2 mg/dL Critically high 8.5-10.1 [facility] Comment on above: Performed By: #### L IPA, CMP, CRP, NAT #### [facility] [address] [place] [address] Dr. Keturah Fisher Chloride [Moles/Vol] 101 mmol/L Normal 98-107 [facility] Comment on above: Performed By: #### L IPA, CMP, CRP, NAT #### [facility] [address] [place] [address] Dr. Keturah Fisher CO2 [Moles/Vol] 29.1 mmol/L Normal 21.0-32.0 [facility] Comment on above: Performed By: #### L IPA, CMP, CRP, NAT #### [facility] [address] [place] [address] Dr. Keturah Fisher Creatinine [Mass/Vol] 0.73 mg/dL Normal 0.55-1.02 [facility] Comment on above: Performed By: #### L IPA, CMP, CRP, NAT #### [facility] [address] [place] [address] Dr. Keturah Fsiher EGFR-AF GREENLANDIC >60 Normal >=60 [facility] Comment on above: Performed By: #### L IPA, CMP, CRP, NAT #### [facility] [address] [address] [address] Keturah Fisher EGFR-NON AF GREENLANDIC >60 Normal >=60 [facility] Comment on above: Performed By: #### L IPA, CMP, CRP, NAT #### [facility] [address] [address] [address] Keturah Fisher Globulin (S) [Mass/Vol] 4.0 g/dL Normal [facility] Comment on above: Performed By: #### L IPA, CMP, CRP, NAT #### [facility] [address] [address] [address] Keturah Fisher Glucose [Mass/Vol] 92 mg/dL Normal 74-106 [facility] Comment on above: Performed By: #### L IPA, CMP, CRP, NAT #### [facility] [address] [place] [address] Dr. Keturah Fisher Potassium [Moles/Vol] 3.8 mmol/L Normal 3.5-5.1 [facility] Comment on above: Performed By: #### L IPA, CMP, CRP, NAT #### [facility] [address] [address] [address] Keturah Fisher Protein [Mass/Vol] 8.3 g/dL Critically high 6.4-8.2 [facility] Comment on above: Performed By: #### L IPA, CMP, CRP, NAT #### [facility] [address] [address] [address] Keturah Fisher Sodium [Moles/Vol] 137 mmol/L Normal 136-145 [facility] Comment on above: Performed By: #### L IPA, CMP, CRP, NAT #### [facility] [address] [address] [address] Keturah Fisher Urea nitrogen [Mass/Vol] 10.0 mg/dL Normal 7.0-18.0 [facility] Comment on above: Performed By: #### L IPA, CMP, CRP, NAT #### [facility] [address] [address] [address] Keturah Fisher Urea nitrogen/Creatinine [Mass ratio] 13.7 mg/mg Normal [facility] Comment on above: Performed By: #### L IPA, CMP, CRP, NAT #### [facility] [address] [address] [address] Keturah Fisher PROTIMEon 03-19-2022 INR Coag (PPP) [Relative time] {INR} Normal [facility] Comment on above: Performed By: #### P TT, PT ####[facility] [address] [address]DrGopal Fisher INR GUIDELINES SEE BELOW Normal [facility] Comment on above: Result Comment: KARLY RED INR: 2.0 - 3.0 CONDITIONS NOT LISTED BELOW 2.5 - 3.5 FOR PROSTHETIC HEART VALVE REPLACEMENT 2.5 - 3.5 RECURRENT THROMBOSIS Performed By: #### P TT, PT ####[facility] [address] [address]Dr. Keturah Fisher PT Coag (PPP) [Time] 9.4 s Normal 9.0-11.6 [facility] Comment on above: Performed By: #### P TT, PT ####[facility] [address] [address]Dr. Keturah Fisher PTTon 03-19-2022 aPTT Coag (Bld) [Time] 26.1 s Normal 22.3-36.2 [facility] Comment on above: Performed By: #### P TT, PT ####[facility] [address] [address]DrGopal Fisher TROPONIN, HIGH SENSITIVITYon 03-19-2022 HSTROP 4.0 pg/mL Normal 4.0-51.3 [facility] Comment on above: Result Comment: CUT- OFF POINTS HAVE BEEN ESTABLISHED BASED ON THE FOURTH UNIVERSAL DEFINITIONS OF MYOCARDIAL INFARCTION. THE UPPER REFERENCE LIMIT (URL) OF TROPONIN, DEFINED THE 99TH PERCENTILE OF cTnI DISTRIBUTION IN A REFERENCE POPULATION, HAS BEEN CONFIRMED THE DECISION THRESHOLD FOR VA DIAGNOSIS. Performed By: #### L IPA, CMP, CRP, NAT #### [facility] [address] [address] [address] 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 Mental Status [...] si (more content not included)... LAB, [facility] Radiology Study observation (narrative) [facility] BONE DENSITY AXIAL (HIP, PEL VIS, SPINE)on [...] interpreted this study is a Certified Clinical Auto Transport Driver by the International Society of Clinical Densitometry Maulik Reed M.D., [facility]. OLOGY EXAM: BONE DENSITY A XIAL (HIP, PELVIS, SPINE) 01/27/2022 15:34 PM TECHNIQUE: DXA scanning using a [employer] Pro[employer] Advance bone densitometer at the [facility] was performed on 01/27/2022 15:34 [...] 15:34 PM TECHNIQUE: DXA scanning using a [employer] Advance bone densitometer at the [facility] was performed on 01/27/2022 15:34 [...] interpreted this study is a Certified Clinical Auto Transport Driver by the International Society of Clinical Densitometry Maulik Reed M.D., CCD. [facility] Radiology Study observation (narrative) [facility] BONE DENSITY AXIAL (HIP, PEL VIS, SPINE)Ordered By: Maulik Reed on 01-27-2022 [facility] Work Phone: CBC AUTO DIFFon 01-15-2022 BASO # 0.1 103/ul Normal 0.0-0.1 [facility] Comment on above: Performed By: #### C BC ####[facility] [address] [id number]. Keturah Fisher Basophils/100 WBC (Bld) 0.9 % Normal 0.2-2.0 [facility] Comment on above: Performed By: #### C BC ####[facility] [address] [address]Dr. Keturah Fisher EO # 0.2 103/ul Normal 0.0-0.7 [facility] Comment on above: Performed By: #### C BC ####[facility] [address] [place], [place] [address]Dr. Keturah Fisher Eosinophils/100 WBC (Bld) 2.8 % Normal 0.9-7.0 [facility] Comment on above: Performed By: #### C BC ####[facility] [address] [place], [place] [address]Dr. Keturah Fisher Erythrocyte distribution width (RBC) [Ratio] 12.9 % Normal 11.0-15.0 [facility] Comment on above: Performed By: #### C BC ####[facility] [address] [place], [place] [address]Dr. Keturah Fisher Hematocrit (Bld) [Volume fraction] 41.7 % Normal 36.0-48.0 [facility] Comment on above: Performed By: #### C BC ####[facility] [address] [place], [place] [address]Dr. Keturah Fisher Hemoglobin (Bld) [Mass/Vol] 14.0 g/dL Normal 12.0-16.0 [facility] Comment on above: Performed By: #### C BC ####[facility] [address] [place], [place] [address]Dr. Keturah Fisher IG # 0.01 10e3/ul Normal 0.00-0.03 [facility] Comment on above: Performed By: #### C BC ####[facility] [address] [place], [place] [address]Dr. Keturah Fisher IG % 0.1 % Normal 0.0-0.5 [facility] Comment on above: Performed By: #### C BC ####[facility] [address] [place], [place] [id number]. Elisaeli Fisher LYMPH # 2.4 103/ul Normal 1.2-3.8 [facility] Comment on above: Performed By: #### C BC ####[facility] [address] [address]Dr. Elisaeli Fisher Lymphocytes/100 WBC (Bld) 32.0 % Normal 20.5-60.0 [facility] Comment on above: Performed By: #### C BC ####[facility] [address] [address]Dr. Keturah Fisher MANUAL DIFF REQ NO Normal [facility] Comment on above: Performed By: #### C BC ####[facility] [address] [address]Dr. Keturah Phillip MCH (RBC) [Entitic mass] 32.6 pg Normal 26.7-34.0 [facility] Comment on above: Performed By: #### C BC ####[facility] [address] [address]Dr. Keturah Phillip MCHC (RBC) [Mass/Vol] 33.6 g/dL Normal 29.9-35.2 [facility] Comment on above: Performed By: #### C BC ####[facility] [address] [place], [place] [address]Dr. Keturah Fisher MCV (RBC) [Entitic vol] 97.0 fL Normal 81.0-99.0 [facility] Comment on above: Performed By: #### C BC ####[facility] [address] [address]Dr. Keturah Fisher MONO # 0.7 103/ul Normal 0.3-0.8 [facility] Comment on above: Performed By: #### C BC ####[facility] [address] [place], [place] [address]Dr. Keturah Fisher Monocytes/100 WBC (Bld) 9.5 % Normal 1.7-12.0 [facility] Comment on above: Performed By: #### C BC ####[facility] [address] [place], [place] [address]Dr. Keturah Fisher NEUT # 4.1 103/ul Normal 1.4-6.5 [facility] Comment on above: Performed By: #### C BC ####[facility] [address] [address]Dr. Keturah Fisher Neutrophils/100 WBC (Bld) 54.7 % Normal 43.0-75.0 [facility] Comment on above: Performed By: #### C BC ####[facility] [address] [address]Dr. Keturah Fisher Platelet mean volume (Bld) [Entitic vol] 9.6 fL Normal 9.5-13.5 [facility] Comment on above: Performed By: #### C BC ####[facility] [address] [address]Dr. Keturah Fisher PLT 235 103/ul Normal 150-450 [facility] Comment on above: Performed By: #### C BC ####[facility] [address] [address]Dr. Keturah Fisher RBC 4.30 106/ul Normal 4.20-5.40 [facility] Comment on above: Performed By: #### C BC ####[facility] [address] [place], [place] [address]Dr. Keturah Fisher WBC 7.6 103/ul Normal 4.0-11.0 [facility] Comment on above: Performed By: #### C BC ####[facility] [address] [address]DrGopal Fisher ER URINE PROFILEon 2 Bilirubin Ql (U) Negative Normal NEGATIVE [facility] Comment on above: Performed By: #### L IPA, CMP, CRP, NAT #### [facility] [address] [place] [address] Dr. Keturah Fisher Clarity (U) CLEAR Normal CLEAR [facility] Comment on above: Performed By: #### L IPA, CMP, CRP, NAT #### [facility] [address] [place] [address] Dr. Keturah Fisher Color (U) YELLOW Normal YELLOW [facility] Comment on above: Performed By: #### L IPA, CMP, CRP, NAT #### [facility] [address] [address] [address] Keturah BAH A micrscopic examina tion will be performed if indicated. Normal [facility] Comment on above: Performed By: #### L IPA, CMP, CRP, NAT #### [facility] [address] [address] [address] Keturah Fisher Glucose Ql (U) Negative Normal NEGATIVE [facility] Comment on above: Performed By: #### L IPA, CMP, CRP, NAT #### [facility] [address] [address] [address] Keturah Fisher Hemoglobin Ql (U) Negative Normal NEGATIVE [facility] Comment on above: Performed By: #### L IPA, CMP, CRP, NAT #### [facility] [address] [address] [address] Keturah Fisher Ketones Ql (U) Negative Normal NEGATIVE [facility] Comment on above: Performed By: #### L IPA, CMP, CRP, NAT #### [facility] [address] [address] [address] Keturah Fisher LEUKOCYTES Negative Normal NEGATIVE [facility] Comment on above: Performed By: #### L IPA, CMP, CRP, NAT #### [facility] [address] [address] [address] Keturah Fisher Nitrite Ql (U) Negative Normal NEGATIVE [facility] Comment on above: Performed By: #### L IPA, CMP, CRP, NAT #### [facility] [address] [address] [address] Keturah Fisher pH (U) 5.5 [pH] Normal 5-9 [facility] Comment on above: Performed By: #### L IPA, CMP, CRP, NAT #### [facility] [address] [address] [address] Keturah Fisher SPEC GRAVITY >=1.030 Abnormal 1.005-<=1. 025 [facility] Comment on above: Performed By: #### L IPA, CMP, CRP, NAT #### [facility] [address] [place] [address] Dr. Keturah Fisher UA PROTEIN Negative Normal NEGATIVE/ TRACE [facility] Comment on above: Performed By: #### L IPA, CMP, CRP, NAT #### [facility] [address] [address] [address] Keturah Fisher UR MICRO IND NOT INDICATED Normal [facility] Comment on above: Performed By: #### L IPA, CMP, CRP, NAT #### [facility] [address] [place] [address] Dr. Keturah Fisher Urobilinogen Qn (U) 0.2 {Marizol'U}/dL Normal 0.2 - 1. 0 [facility] Comment on above: Performed By: #### L IPA, CMP, CRP, NAT #### [facility] [address] [place] [address] Dr. Keturah Fisher LIPASEon 01-15-2022 Lipase [Catalytic activity/Vol] 572.0 U/L Critically high 73.0-393.0 [facility] Comment on above: Performed By: #### C BC #### [facility] [address] [place] [address] Dr. Keturah Fisher URon 01-15-2022 , QUAL Negative Normal NEGATIVE [facility] Comment on above: Performed By: #### L IPA, CMP, CRP, NAT #### [facility] [address] [place] [address] Dr. Keturah Fisher PROF 14(COMP METB)on 022 Albumin [Mass/Vol] 3.8 g/dL Normal 3.4-5.0 [facility] Comment on above: Performed By: #### C BC #### [facility] [address] [place] [address] Dr. Keturah Fisher Albumin/Globulin [Mass ratio] 1.1 {ratio} Normal [facility] Comment on above: Performed By: #### C BC #### [facility] [address] [place] [address] Dr. Keturah Fisher ALP [Catalytic activity/Vol] 151 U/L Critically high 46-116 [facility] Comment on above: Performed By: #### C BC #### [facility] [address] [place] [address] Dr. Keturah Fisher ALT [Catalytic activity/Vol] 14 U/L Normal 14-59 [facility] Comment on above: Performed By: #### C BC #### [facility] [address] [address] [address] Keturah Fisher Anion gap [Moles/Vol] 5.5 mmol/L Normal [facility] Comment on above: Performed By: #### C BC #### [facility] [address] [address] [address] Keturah Fisher AST [Catalytic activity/Vol] 16 U/L Normal 15-37 [facility] Comment on above: Performed By: #### C BC #### [facility] [address] [place] [address] Dr. Keturah Fisher Bilirubin [Mass/Vol] 0.1 mg/dL Critically low 0.2-1.0 [facility] Comment on above: Performed By: #### C BC #### [facility] [address] [place] [address] Dr. Keturah Fisher Calcium [Mass/Vol] 9.5 mg/dL Normal 8.5-10.1 [facility] Comment on above: Performed By: #### C BC #### [facility] [address] [place] [address] Dr. Keturah Fisher Chloride [Moles/Vol] 105 mmol/L Normal 98-107 [facility] Comment on above: Performed By: #### C BC #### [facility] [address] [address] [address] Keturah Fisher CO2 [Moles/Vol] 30.0 mmol/L Normal 21.0-32.0 [facility] Comment on above: Performed By: #### C BC #### [facility] [address] [place] [address] Dr. Keturah Fisher Creatinine [Mass/Vol] 0.90 mg/dL Normal 0.55-1.02 [facility] Comment on above: Performed By: #### C BC #### [facility] [address] [address] [address] Keturah Fisher EGFR-AF GREENLANDIC >60 Normal >=60 [facility] Comment on above: Performed By: #### C BC #### [facility] [address] [address] [address] Keturah Fisher EGFR-NON AF GREENLANDIC >60 Normal >=60 [facility] Comment on above: Performed By: #### C BC #### [facility] [address] [address] [address] Keturah Fisher Globulin (S) [Mass/Vol] 3.4 g/dL Normal [facility] Comment on above: Performed By: #### C BC #### [facility] [address] [address] [address] Keturah Fisher Glucose [Mass/Vol] 82 mg/dL Normal 74-106 [facility] Comment on above: Performed By: #### C BC #### [facility] [address] [address] [address] Keturah Fisher Potassium [Moles/Vol] 3.5 mmol/L Normal 3.5-5.1 [facility] Comment on above: Performed By: #### C BC #### [facility] [address] [address] [address] Keturah Fisher Protein [Mass/Vol] 7.2 g/dL Normal 6.4-8.2 [facility] Comment on above: Performed By: #### C BC #### [facility] [address] [address] [address] Keturah Fisher Sodium [Moles/Vol] 137 mmol/L Normal 136-145 [facility] Comment on above: Performed By: #### C BC #### [facility] [address] [address] [address] Keturah Fisher Urea nitrogen [Mass/Vol] 12.0 mg/dL Normal 7.0-18.0 [facility] Comment on above: Performed By: #### C BC #### [facility] [address] [place] [address] Dr. Keturah Fisher Urea nitrogen/Creatinine [Mass ratio] 13.3 mg/mg Normal [facility] Comment on above: Performed By: #### C BC #### [facility] [address] [place] [address] Dr. Keturah Fisher AMYLASEon 12-13-2021 Amylase [Catalytic activity/Vol] 268 U/L Critically high 25-115 [facility] Comment on above: Performed By: #### L IPA, CMP, CRP, NAT #### [facility] [address] [place] [address] Dr. Keturah Fisher CBC AUTO DIFFon 12-13-2021 BASO # 0.1 103/ul Normal 0.0-0.1 [facility] Comment on above: Performed By: #### L IPA, CMP, CRP, NAT #### [facility] [address] [place] [address] Dr. Keturah Fisher Basophils/100 WBC (Bld) 0.6 % Normal 0.2-2.0 [facility] Comment on above: Performed By: #### L IPA, CMP, CRP, NAT #### [facility] [address] [place] [address] Dr. Keturah Fisher EO # 0.1 103/ul Normal 0.0-0.7 [facility] Comment on above: Performed By: #### L IPA, CMP, CRP, NAT #### [facility] [address] [place] [address] Dr. Keturah Fisher Eosinophils/100 WBC (Bld) 1.2 % Normal 0.9-7.0 [facility] Comment on above: Performed By: #### L IPA, CMP, CRP, NAT #### [facility] [address] [place] [address] Dr. Keturah Fisher Erythrocyte distribution width (RBC) [Ratio] 13.2 % Normal 11.0-15.0 [facility] Comment on above: Performed By: #### L IPA, CMP, CRP, NAT #### [facility] [address] [place] [address] Dr. Keturah Fisher Hematocrit (Bld) [Volume fraction] 44.7 % Normal 36.0-48.0 [facility] Comment on above: Performed By: #### L IPA, CMP, CRP, NAT #### [facility] [address] [place] [address] Dr. Keturah Fisher Hemoglobin (Bld) [Mass/Vol] 14.7 g/dL Normal 12.0-16.0 [facility] Comment on above: Performed By: #### L IPA, CMP, CRP, NAT #### [facility] [address] [place] [address] Dr. Keturah Fisher IG # 0.03 10e3/ul Normal 0.00-0.03 [facility] Comment on above: Performed By: #### L IPA, CMP, CRP, NAT #### [facility] [address] [place] [address] Dr. Keturah Fisher IG % 0.3 % Normal 0.0-0.5 [facility] Comment on above: Performed By: #### L IPA, CMP, CRP, NAT #### [facility] [address] [place] [address] Dr. Keturah Fisher LYMPH # 3.6 103/ul Normal 1.2-3.8 [facility] Comment on above: Performed By: #### L IPA, CMP, CRP, NAT #### [facility] [address] [place] [address] Dr. Keturah Fisher Lymphocytes/100 WBC (Bld) 32.7 % Normal 20.5-60.0 [facility] Comment on above: Performed By: #### L IPA, CMP, CRP, NAT #### [facility] [address] [place] [address] Dr. Keturah Fisher MANUAL DIFF REQ NO Normal [facility] Comment on above: Performed By: #### L IPA, CMP, CRP, NAT #### [facility] [address] [place] [address] Dr. Keturah Fisher MCH (RBC) [Entitic mass] 32.2 pg Normal 26.7-34.0 [facility] Comment on above: Performed By: #### L IPA, CMP, CRP, NAT #### [facility] [address] [place] [address] Dr. Keturah Fisher MCHC (RBC) [Mass/Vol] 32.9 g/dL Normal 29.9-35.2 [facility] Comment on above: Performed By: #### L IPA, CMP, CRP, NAT #### [facility] [address] [place] [address] Dr. Keturah Fisher MCV (RBC) [Entitic vol] 98.0 fL Normal 81.0-99.0 [facility] Comment on above: Performed By: #### L IPA, CMP, CRP, NAT #### [facility] [address] [place] [address] Dr. Keturah Fisher MONO # 1.1 103/ul Critically high 0.3-0.8 [facility] Comment on above: Performed By: #### L IPA, CMP, CRP, NAT #### [facility] [address] [place] [address] Dr. Keturah Fisher Monocytes/100 WBC (Bld) 9.7 % Normal 1.7-12.0 [facility] Comment on above: Performed By: #### L IPA, CMP, CRP, NAT #### [facility] [address] [place] [address] Dr. Keturah Fisher NEUT # 6.1 103/ul Normal 1.4-6.5 [facility] Comment on above: Performed By: #### L IPA, CMP, CRP, NAT #### [facility] [address] [place] [address] Dr. Keturah Fisher Neutrophils/100 WBC (Bld) 55.5 % Normal 43.0-75.0 [facility] Comment on above: Performed By: #### L IPA, CMP, CRP, NAT #### [facility] [address] [place] [address] Dr. Keturah Fisher Platelet mean volume (Bld) [Entitic vol] 9.7 fL Normal 9.5-13.5 [facility] Comment on above: Performed By: #### L IPA, CMP, CRP, NAT #### [facility] [address] [address] [address] Keturah Fisher PLT 274 103/ul Normal 150-450 [facility] Comment on above: Performed By: #### L IPA, CMP, CRP, NAT #### [facility] [address] [address] [address] Keturah Fisher RBC 4.56 106/ul Normal 4.20-5.40 [facility] Comment on above: Performed By: #### L IPA, CMP, CRP, NAT #### [facility] [address] [address] [address] Keturah Fisher WBC 10.9 103/ul Normal 4.0-11.0 [facility] Comment on above: Performed By: #### L IPA, CMP, CRP, NAT #### [facility] [address] [place] [address] Dr. Keturah Fisher CRPon 12-13-2021 CRP [Mass/Vol] mg/L Normal <=1.0 [facility] Comment on above: Performed By: #### L IPA, CMP, CRP, NAT #### [facility] [address] [place] [address] ABD/PELV W CONon [...] by: AGUSTIN HIGHTOWER Date: 2021-12-13 20:50 Normal [facility] LIPASEon 12-13-2021 Lipase [Catalytic activity/Vol] 1496.0 U/L Critically high 73.0-393.0 [facility] Comment on above: Performed By: #### L IPA, CMP, CRP, NAT #### [facility] [address] [address] [address] Keturah Fisher PROF 14(COMP METB)on 022 Albumin [Mass/Vol] 4.0 g/dL Normal 3.4-5.0 [facility] Comment on above: Performed By: #### L IPA, CMP, CRP, NAT #### [facility] [address] [address] [address] Keturah Fisher Albumin/Globulin [Mass ratio] 1.0 {ratio} Normal [facility] Comment on above: Performed By: #### L IPA, CMP, CRP, NAT #### [facility] [address] [address] [address] Keturah Fisher ALP [Catalytic activity/Vol] 166 U/L Critically high 46-116 [facility] Comment on above: Performed By: #### L IPA, CMP, CRP, NAT #### [facility] [address] [address] [address] Keturah Fisher ALT [Catalytic activity/Vol] 19 U/L Normal 14-59 [facility] Comment on above: Performed By: #### L IPA, CMP, CRP, NAT #### [facility] [address] [address] [address] Keturah Fisher Anion gap [Moles/Vol] 9.5 mmol/L Normal [facility] Comment on above: Performed By: #### L IPA, CMP, CRP, NAT #### [facility] [address] [address] [address] Keturah Fisher AST [Catalytic activity/Vol] 16 U/L Normal 15-37 [facility] Comment on above: Performed By: #### L IPA, CMP, CRP, NAT #### [facility] [address] [address] [address] Keturah Fisher Bilirubin [Mass/Vol] 0.1 mg/dL Critically low 0.2-1.0 [facility] Comment on above: Performed By: #### L IPA, CMP, CRP, NAT #### [facility] [address] [address] [address] Keturah Fisher Calcium [Mass/Vol] 9.6 mg/dL Normal 8.5-10.1 [facility] Comment on above: Performed By: #### L IPA, CMP, CRP, NAT #### [facility] [address] [address] [address] Keturah Fisher Chloride [Moles/Vol] 104 mmol/L Normal 98-107 [facility] Comment on above: Performed By: #### L IPA, CMP, CRP, NAT #### [facility] [address] [address] [address] Keturah Fisher CO2 [Moles/Vol] 29.7 mmol/L Normal 21.0-32.0 [facility] Comment on above: Performed By: #### L IPA, CMP, CRP, NAT #### [facility] [address] [address] [address] Keturah Fisher Creatinine [Mass/Vol] 0.85 mg/dL Normal 0.55-1.02 [facility] Comment on above: Performed By: #### L IPA, CMP, CRP, NAT #### [facility] [address] [address] [address] Keturah Fisher EGFR-AF GREENLANDIC >60 Normal >=60 [facility] Comment on above: Performed By: #### L IPA, CMP, CRP, NAT #### [facility] [address] [address] [address] Keturah Fisher EGFR-NON AF GREENLANDIC >60 Normal >=60 [facility] Comment on above: Performed By: #### L IPA, CMP, CRP, NAT #### [facility] [address] [address] [address] Keturah Fisher Globulin (S) [Mass/Vol] 3.9 g/dL Normal [facility] Comment on above: Performed By: #### L IPA, CMP, CRP, NAT #### [facility] [address] [place] [address] Dr. Keturah Fisher Glucose [Mass/Vol] 70 mg/dL Critically low 74-106 [facility] Comment on above: Performed By: #### L IPA, CMP, CRP, NAT #### [facility] [address] [place] [address] Dr. Keturah Fisher Potassium [Moles/Vol] 3.2 mmol/L Critically low 3.5-5.1 [facility] Comment on above: Performed By: #### L IPA, CMP, CRP, NAT #### [facility] [address] [address] [address] Keturah Fisher Protein [Mass/Vol] 7.9 g/dL Normal 6.4-8.2 [facility] Comment on above: Performed By: #### L IPA, CMP, CRP, NAT #### [facility] [address] [address] [address] Keturah Fisher Sodium [Moles/Vol] 140 mmol/L Normal 136-145 [facility] Comment on above: Performed By: #### L IPA, CMP, CRP, NAT #### [facility] [address] [address] [address] Keturah Fisher Urea nitrogen [Mass/Vol] 8.0 mg/dL Normal 7.0-18.0 [facility] Comment on above: Performed By: #### L IPA, CMP, CRP, NAT #### [facility] [address] [place] [address] Dr. Keturah Fisher Urea nitrogen/Creatinine [Mass ratio] 9.4 mg/mg Normal [facility] Comment on above: Performed By: #### L IPA, CMP, CRP, NAT #### [facility] [address] [place] [address] Dr. Keturah Fisher AMYLASEon 12-05-2021 Amylase [Catalytic activity/Vol] 223 U/L Critically high 25-115 [facility] Comment on above: Performed By: #### L IPA, CMP, CRP, NAT #### [facility] [facility] [address] [place] [address] Dr. Keturah Fisher CBC AUTO DIFFon 12-05-2021 BASO # 0.1 103/ul Normal 0.0-0.1 [facility] Comment on above: Performed By: #### C BC #### [facility] [address] [place] [address] Dr. Keturah Fisher Basophils/100 WBC (Bld) 0.7 % Normal 0.2-2.0 [facility] Comment on above: Performed By: #### C BC #### [facility] [address] [place] [address] Dr. Keturah Fisher EO # 0.2 103/ul Normal 0.0-0.7 [facility] Comment on above: Performed By: #### C BC #### [facility] [address] [place] [address] Dr. Keturah Fisher Eosinophils/100 WBC (Bld) 1.7 % Normal 0.9-7.0 [facility] Comment on above: Performed By: #### C BC #### [facility] [address] [place] [address] Dr. Keturah Fisher Erythrocyte distribution width (RBC) [Ratio] 13.0 % Normal 11.0-15.0 [facility] Comment on above: Performed By: #### C BC #### [facility] [address] [place] [address] Dr. Keturah Fisher Hematocrit (Bld) [Volume fraction] 44.9 % Normal 36.0-48.0 [facility] Comment on above: Performed By: #### C BC #### [facility] [address] [place] [address] Dr. Keturah Fisher Hemoglobin (Bld) [Mass/Vol] 15.1 g/dL Normal 12.0-16.0 [facility] Comment on above: Performed By: #### C BC #### [facility] [address] [place] [address] Dr. Keturah Fisher IG # 0.02 10e3/ul Normal 0.00-0.03 [facility] Comment on above: Performed By: #### C BC #### [facility] [address] [place] [address] Dr. Keturah Fisher IG % 0.2 % Normal 0.0-0.5 [facility] Comment on above: Performed By: #### C BC #### [facility] [address] [place] [address] Dr. Keturah Fisher LYMPH # 2.8 103/ul Normal 1.2-3.8 [facility] Comment on above: Performed By: #### C BC #### [facility] [address] [place] [address] Dr. Keturah Fisher Lymphocytes/100 WBC (Bld) 29.8 % Normal 20.5-60.0 [facility] Comment on above: Performed By: #### C BC #### [facility] [address] [place] [address] Dr. Keturah Fisher MANUAL DIFF REQ NO Normal [facility] Comment on above: Performed By: #### C BC #### [facility] [address] [place] [address] Dr. Keturah Fisher MCH (RBC) [Entitic mass] 32.4 pg Normal 26.7-34.0 [facility] Comment on above: Performed By: #### C BC #### [facility] [address] [place] [address] Dr. Keturah Fisher MCHC (RBC) [Mass/Vol] 33.6 g/dL Normal 29.9-35.2 [facility] Comment on above: Performed By: #### C BC #### [facility] [address] [address] [address] Keturah Fisehr MCV (RBC) [Entitic vol] 96.4 fL Normal 81.0-99.0 [facility] Comment on above: Performed By: #### C BC #### [facility] [address] [address] [address] Keturah Fisher MONO # 0.6 103/ul Normal 0.3-0.8 [facility] Comment on above: Performed By: #### C BC #### [facility] [address] [place] [address] Dr. Keturah Fisher Monocytes/100 WBC (Bld) 6.3 % Normal 1.7-12.0 [facility] Comment on above: Performed By: #### C BC #### [facility] [address] [place] [address] Dr. Keturah Fisher NEUT # 5.7 103/ul Normal 1.4-6.5 [facility] Comment on above: Performed By: #### C BC #### [facility] [address] [place] [address] Dr. Keturah Fisher Neutrophils/100 WBC (Bld) 61.3 % Normal 43.0-75.0 [facility] Comment on above: Performed By: #### C BC #### [facility] [address] [place] [address] Dr. Keturah Fisher Platelet mean volume (Bld) [Entitic vol] 10.7 fL Normal 9.5-13.5 [facility] Comment on above: Performed By: #### C BC #### [facility] [address] [place] [address] Dr. Keturah Fisher PLT 217 103/ul Normal 150-450 [facility] Comment on above: Performed By: #### C BC #### [facility] [address] [place] [address] Dr. Keturah Fisher RBC 4.66 106/ul Normal 4.20-5.40 [facility] Comment on above: Performed By: #### C BC #### [facility] [address] [place] [address] Dr. Keturah Fisher WBC 9.2 103/ul Normal 4.0-11.0 [facility] Comment on above: Performed By: #### C BC #### [facility] [address] [place] [address] Dr. Keturah Fisher LIPASEon 12-05-2021 Lipase [Catalytic activity/Vol] 725.0 U/L Critically high 73.0-393.0 [facility] Comment on above: Performed By: #### L IPA, CMP, CRP, NAT #### [facility] [address] [place] [address] Dr. Keturah Fisher PROF 14(COMP METB)on 022 Albumin [Mass/Vol] 4.2 g/dL Normal 3.4-5.0 [facility] Comment on above: Performed By: #### L IPA, CMP, CRP, NAT #### [facility] [address] [place] [address] Dr. Keturah Fisher Albumin/Globulin [Mass ratio] 1.2 {ratio} Normal [facility] Comment on above: Performed By: #### L IPA, CMP, CRP, NAT #### [facility] [address] [place] [address] Dr. Keturah Fisher ALP [Catalytic activity/Vol] 158 U/L Critically high 46-116 [facility] Comment on above: Performed By: #### L IPA, CMP, CRP, NAT #### [facility] [address] [place] [address] Dr. Keturah Fisher ALT [Catalytic activity/Vol] 20 U/L Normal 14-59 [facility] Comment on above: Performed By: #### L IPA, CMP, CRP, NAT #### [facility] [address] [place] [address] Dr. Keturah Fisher Anion gap [Moles/Vol] 14.0 mmol/L Normal [facility] Comment on above: Performed By: #### L IPA, CMP, CRP, NAT #### [facility] [address] [address] [address] Keturah Fisher AST [Catalytic activity/Vol] 27 U/L Normal 15-37 [facility] Comment on above: Performed By: #### L IPA, CMP, CRP, NAT #### [facility] [address] [place] [address] Dr. Keturah Fisher Bilirubin [Mass/Vol] 0.3 mg/dL Normal 0.2-1.0 [facility] Comment on above: Performed By: #### L IPA, CMP, CRP, NAT #### [facility] [address] [place] [address] Dr. Keturah Fisher Calcium [Mass/Vol] 10.1 mg/dL Normal 8.5-10.1 [facility] Comment on above: Performed By: #### L IPA, CMP, CRP, NAT #### [facility] [address] [place] [address] Dr. Keturah Fisher Chloride [Moles/Vol] 105 mmol/L Normal 98-107 [facility] Comment on above: Performed By: #### L IPA, CMP, CRP, NAT #### [facility] [address] [place] [address] Dr. Keturah Fisher CO2 [Moles/Vol] 24.9 mmol/L Normal 21.0-32.0 [facility] Comment on above: Performed By: #### L IPA, CMP, CRP, NAT #### [facility] [address] [place] [address] Dr. Keturah Fisher Creatinine [Mass/Vol] 0.77 mg/dL Normal 0.55-1.02 [facility] Comment on above: Performed By: #### L IPA, CMP, CRP, NAT #### [facility] [address] [place] [address] Dr. Keturah Fisher EGFR-AF GREENLANDIC >60 Normal >=60 [facility] Comment on above: Performed By: #### L IPA, CMP, CRP, NAT #### [facility] [address] [place] [address] Dr. Keturah Fisher EGFR-NON AF GRE[place]IC >60 Normal >=60 [facility] Comment on above: Performed By: #### L IPA, CMP, CRP, NAT #### [facility] [address] [address] [address] Keturah Fisher Globulin (S) [Mass/Vol] 3.5 g/dL Normal [facility] Comment on above: Performed By: #### L IPA, CMP, CRP, NAT #### [facility] [address] [address] [address] Keturah Fisher Glucose [Mass/Vol] 91 mg/dL Normal 74-106 [facility] Comment on above: Performed By: #### L IPA, CMP, CRP, NAT #### [facility] [address] [place] [address] Dr. Keturah Fisher Potassium [Moles/Vol] 3.9 mmol/L Normal 3.5-5.1 [facility] Comment on above: Performed By: #### L IPA, CMP, CRP, NAT #### [facility] [address] [place] [address] Dr. Keturah Fisher Protein [Mass/Vol] 7.7 g/dL Normal 6.4-8.2 [facility] Comment on above: Performed By: #### L IPA, CMP, CRP, NAT #### [facility] [address] [place] [address] Dr. Keturah Fisher Sodium [Moles/Vol] 140 mmol/L Normal 136-145 [facility] Comment on above: Performed By: #### L IPA, CMP, CRP, NAT #### [facility] [address] [address] [address] Keturah Fisher Urea nitrogen [Mass/Vol] 8.0 mg/dL Normal 7.0-18.0 [facility] Comment on above: Performed By: #### L IPA, CMP, CRP, NAT #### [facility] [address] [place] [address] Dr. Keturah Fisher Urea nitrogen/Creatinine [Mass ratio] 10.4 mg/mg Normal [facility] Comment on above: Performed By: #### L IPA, CMP, CRP, NAT #### [facility] [address] [place] [address] Dr. Keturah Fisher AMYLASEon 10-11-2021 Amylase [Catalytic activity/Vol] 134 U/L Critically high 25-115 [facility] Comment on above: Performed By: #### C BC #### [facility] [address] [place] [address] Dr. Keturah Fisher CBC AUTO DIFFon 10-11-2021 BASO # 0.1 103/ul Normal 0.0-0.1 [facility] Comment on above: Performed By: #### L IPA, CMP, CRP, NAT #### [facility] [address] [place] [address] Dr. Keturah Fisher Basophils/100 WBC (Bld) 1.0 % Normal 0.2-2.0 [facility] Comment on above: Performed By: #### L IPA, CMP, CRP, NAT #### [facility] [address] [place] [address] Dr. Keturah Fisher EO # 0.2 103/ul Normal 0.0-0.7 [facility] Comment on above: Performed By: #### L IPA, CMP, CRP, NAT #### [facility] [address] [place] [address] Dr. Keturah Fisher Eosinophils/100 WBC (Bld) 2.0 % Normal 0.9-7.0 [facility] Comment on above: Performed By: #### L IPA, CMP, CRP, NAT #### [facility] [address] [place] [address] Dr. Keturah Fisher Erythrocyte distribution width (RBC) [Ratio] 13.2 % Normal 11.0-15.0 [facility] Comment on above: Performed By: #### L IPA, CMP, CRP, NAT #### [facility] [address] [place] [address] Dr. Keturah Fisher Hematocrit (Bld) [Volume fraction] 44.7 % Normal 36.0-48.0 [facility] Comment on above: Performed By: #### L IPA, CMP, CRP, NAT #### [facility] [address] [place] [address] Dr. Keturah Fisher Hemoglobin (Bld) [Mass/Vol] 15.0 g/dL Normal 12.0-16.0 [facility] Comment on above: Performed By: #### L IPA, CMP, CRP, NAT #### [facility] [address] [place] [address] Dr. Keturah Fisher IG # 0.02 10e3/ul Normal 0.00-0.03 [facility] Comment on above: Performed By: #### L IPA, CMP, CRP, NAT #### [facility] [address] [place] [address] Dr. Keturah Fisher IG % 0.2 % Normal 0.0-0.5 [facility] Comment on above: Performed By: #### L IPA, CMP, CRP, NAT #### [facility] [address] [place] [address] Dr. Keturah Fisher LYMPH # 4.1 103/ul Critically high 1.2-3.8 [facility] Comment on above: Performed By: #### L IPA, CMP, CRP, NAT #### [facility] [address] [place] [address] Dr. Keturah Fisher Lymphocytes/100 WBC (Bld) 38.9 % Normal 20.5-60.0 [facility] Comment on above: Performed By: #### L IPA, CMP, CRP, NAT #### [facility] [address] [place] [address] Dr. Keturah Fisher MANUAL DIFF REQ NO Normal [facility] Comment on above: Performed By: #### L IPA, CMP, CRP, NAT #### [facility] [address] [place] [address] Dr. Keturah Fisher MCH (RBC) [Entitic mass] 32.1 pg Normal 26.7-34.0 [facility] Comment on above: Performed By: #### L IPA, CMP, CRP, NAT #### [facility] [address] [place] [address] Dr. Keturah Fisher MCHC (RBC) [Mass/Vol] 33.6 g/dL Normal 29.9-35.2 [facility] Comment on above: Performed By: #### L IPA, CMP, CRP, NAT #### [facility] [address] [place] [address] Dr. Keturah Fisher MCV (RBC) [Entitic vol] 95.7 fL Normal 81.0-99.0 [facility] Comment on above: Performed By: #### L IPA, CMP, CRP, NAT #### [facility] [address] [place] [address] Dr. Keturah Fisher MONO # 0.9 103/ul Critically high 0.3-0.8 [facility] Comment on above: Performed By: #### L IPA, CMP, CRP, NAT #### [facility] [address] [place] [address] Dr. Keturah Fisher Monocytes/100 WBC (Bld) 8.8 % Normal 1.7-12.0 [facility] Comment on above: Performed By: #### L IPA, CMP, CRP, NAT #### [facility] [address] [place] [address] Dr. Keturah Fisher NEUT # 5.2 103/ul Normal 1.4-6.5 [facility] Comment on above: Performed By: #### L IPA, CMP, CRP, NAT #### [facility] [address] [place] [address] Dr. Keturah Fisher Neutrophils/100 WBC (Bld) 49.1 % Normal 43.0-75.0 [facility] Comment on above: Performed By: #### L IPA, CMP, CRP, NAT #### [facility] [address] [place] [address] Dr. Keturah Fisher Platelet mean volume (Bld) [Entitic vol] 9.8 fL Normal 9.5-13.5 [facility] Comment on above: Performed By: #### L IPA, CMP, CRP, NAT #### [facility] [address] [place] [address] Dr. Keturah Fisher PLT 299 103/ul Normal 150-450 [facility] Comment on above: Performed By: #### L IPA, CMP, CRP, NAT #### [facility] [address] [place] [address] Dr. Keturah Fisher RBC 4.67 106/ul Normal 4.20-5.40 [facility] Comment on above: Performed By: #### L IPA, CMP, CRP, NAT #### [facility] [address] [place] [address] Dr. Keturah Fisher WBC 10.5 103/ul Normal 4.0-11.0 [facility] Comment on above: Performed By: #### L IPA, CMP, CRP, NAT #### [facility] [address] [place] [address] Dr. Keturah Fisher LIPASEon 10-11-2021 Lipase [Catalytic activity/Vol] 240.0 U/L Normal 73.0-393.0 [facility] Comment on above: Performed By: #### C BC #### [facility] [address] [place] [address] Dr. Keturah Fisher PROF 14(COMP METB)on 022 Albumin [Mass/Vol] 4.3 g/dL Normal 3.4-5.0 [facility] Comment on above: Performed By: #### C BC #### [facility] [address] [place] [address] Dr. Keturah Fisher Albumin/Globulin [Mass ratio] 1.3 {ratio} Normal [facility] Comment on above: Performed By: #### C BC #### [facility] [address] [place] [address] Dr. Keturah Fisher ALP [Catalytic activity/Vol] 162 U/L Critically high 46-116 [facility] Comment on above: Performed By: #### C BC #### [facility] [address] [place] [address] Dr. Keturah Fisher ALT [Catalytic activity/Vol] 21 U/L Normal 14-59 [facility] Comment on above: Performed By: #### C BC #### [facility] [address] [place] [address] Dr. Keturah Fisher Anion gap [Moles/Vol] 15.1 mmol/L Normal [facility] Comment on above: Performed By: #### C BC #### [facility] [address] [place] [address] Dr. Keturah Fisher AST [Catalytic activity/Vol] 16 U/L Normal 15-37 [facility] Comment on above: Performed By: #### C BC #### [facility] [address] [address] [address] Keturah Fisher Bilirubin [Mass/Vol] 0.2 mg/dL Normal 0.2-1.0 [facility] Comment on above: Performed By: #### C BC #### [facility] [address] [address] [address] Keturah Fisher Calcium [Mass/Vol] 9.6 mg/dL Normal 8.5-10.1 [facility] Comment on above: Performed By: #### C BC #### [facility] [address] [place] [address] Dr. Keturah Fisher Chloride [Moles/Vol] 104 mmol/L Normal 98-107 [facility] Comment on above: Performed By: #### C BC #### [facility] [address] [address] [address] Keturah Fisher CO2 [Moles/Vol] 24.6 mmol/L Normal 21.0-32.0 [facility] Comment on above: Performed By: #### C BC #### [facility] [address] [place] [address] Dr. Keturah Fisher Creatinine [Mass/Vol] 0.88 mg/dL Normal 0.55-1.02 [facility] Comment on above: Performed By: #### C BC #### [facility] [address] [place] [address] Dr. Keturah Fisher EGFR-AF GREENLANDIC >60 Normal >=60 [facility] Comment on above: Performed By: #### C BC #### [facility] [address] [place] [address] Dr. Keturah Fisher EGFR-NON AF GRE[place]IC >60 Normal >=60 [facility] Comment on above: Performed By: #### C BC #### [facility] [address] [place] [address] Dr. Keturah Fisher Globulin (S) [Mass/Vol] 3.3 g/dL Normal [facility] Comment on above: Performed By: #### C BC #### [facility] [address] [address] [address] Keturah Fisher Glucose [Mass/Vol] 111 mg/dL Critically high 74-106 [facility] Comment on above: Performed By: #### C BC #### [facility] [address] [address] [address] Keturah Fisher Potassium [Moles/Vol] 3.7 mmol/L Normal 3.5-5.1 [facility] Comment on above: Performed By: #### C BC #### [facility] [address] [address] [address] Keturah Fisher Protein [Mass/Vol] 7.6 g/dL Normal 6.4-8.2 [facility] Comment on above: Performed By: #### C BC #### [facility] [address] [address] [address] Keturah Fisher Sodium [Moles/Vol] 140 mmol/L Normal 136-145 [facility] Comment on above: Performed By: #### C BC #### [facility] [address] [address] [address] Keturah Fisher Urea nitrogen [Mass/Vol] 11.0 mg/dL Normal 7.0-18.0 [facility] Comment on above: Performed By: #### C BC #### [facility] [address] [address] [address] Keturah Fisher Urea nitrogen/Creatinine [Mass ratio] 12.5 mg/mg Normal [facility] Comment on above: Performed By: #### C BC #### [facility] [address] [address] [address] Keturah Fisher PROTIMEon 10-11-2021 INR Coag (PPP) [Relative time] 0.94 {INR} [facility] Comment on above: Performed By: #### P T, PTT ####[facility] [id number] [address]Dr. Keturah Fisher INR GUIDELINES SEE BELOW Normal [facility] Comment on above: Result Comment: KARLY RED INR: 2.0 - 3.0 CONDITIONS NOT LISTED BELOW 2.5 - 3.5 FOR PROSTHETIC HEART VALVE REPLACEMENT 2.5 - 3.5 RECURRENT THROMBOSIS Performed By: #### P T, PTT ####[facility] [id number] [place], [place] [address]Cy. Keturah Fisher PT Coag (PPP) [Time] 10.2 s Normal 9.0-11.6 [facility] Comment on above: Performed By: #### P T, PTT ####[facility] [id number] [place], [place] [address]P[address]. Keturah Fisher PTTon 10-11-2021 aPTT Coag (Bld) [Time] 28.0 s Normal 22.3-36.2 Th [facility] Comment on above: Performed By: #### P T, PTT ####[facility] [id number] [id number]. Keturah Fisher Amphetamine Screen Ql (U)Ord ered By: Christa Lopez on 10-09-2021 Amphetamines Ql (U) Negative Negative [facility] Barbiturates [Presence] in U rineOrdered By: Christa Lopez on 10-09-2021 Barbiturates Ql (U) Negative Negative [facility] Basophils Auto (Bld) [#/Vol] Ordered By: Christa Lopez on 10-09-2021 Basophils (Bld) [#/Vol] 0.1 10*3/uL 0.0-0.2 [facility] Basophils/100 WBC Auto (Bld) Ordered By: Christa Lopez on 10-09-2021 Basophils/100 WBC (Bld) 0.9 % . [facility] Benzodiazepines [Presence] i n UrineOrdered By: Christa Lopez on 10-09-2021 Benzodiazepines Ql (U) Negative Negative [facility] Bilirubin Auto test strip Ql (U)Ordered By: Christa Lopez on 10-09-2021 Bilirubin Ql (U) Negative Negative [facility] Blood hemoglobin measurement (mass/volume)Ordered By: Christa Lopez on 10-09-2021 Hemoglobin (Bld) [Mass/Vol] 15.7 g/dL 11.8-15.4 [facility] Blood leukocytes automated c ount (number/volume)Ordered By: Christa Lopez on 10-09-2021 WBC (Bld) [#/Vol] 10.1 10*3/uL 4.5-11.0 [facility] Body fluid albumin measureme nt (mass/volume)Ordered By: Christa Lopez on 10-09-2021 Albumin (Body fld) [Mass/Vol] 4.5 g/dL 3.2-5.5 [facility] Cannabinoids [Presence] in U rine by Screen methodOrdered By: Christa Lopez on 10-09-2021 Cannabinoids Screen Ql (U) Negative Negative [facility] Comment on above: These are unconfirme d results and should not be used for legal purposes. Drug Cut-Off Concentration: AMPH 1000 ng/mL BAILEY 200 ng/mL JAKE 200 ng/mL COCM 300 ng/mL OP 300 ng/mL PCP 25 ng/mL THC 20 ng/mL Creatinine and Glomerular fi ltration rate.predicted panel (S/P/Bld)Ordered By: Christa Lopez on 10-09-2021 Creatinine [Mass/Vol] 0.85 mg/dL 0.44-1.03 [facility] Eosinophils Auto (Bld) [#/Vo l]Ordered By: Christa Lopez on 10-09-2021 Eosinophils (Bld) [#/Vol] 0.1 10*3/uL 0.0-0.45 [facility] Eosinophils/100 WBC Auto (Bl d)Ordered By: Christa Lopez on 10-09-2021 Eosinophils/100 WBC (Bld) 1.2 % . [facility] Erythrocyte distribution wid th Auto (RBC) [Ratio]Ordered By: Christa Lopez on 10-09-2021 Erythrocyte distribution width (RBC) [Ratio] 13.5 % 11.9-15.3 [facility] Estimated glomerular filtrat ion rate (GFR) non- AmericanOrdered By: Christa Lopez on 10-09-2021 GFR/1.73 sq M.predicted among non-blacks MDRD (S/P/Bld) [Vol rate/Area] > 60 mL/Min [facility] Globulin Calc (S) [Mass/Vol] Ordered By: Christa Lopez on 10-09-2021 Globulin (S) [Mass/Vol] 2.9 g/dL [facility] Hematocrit Auto (Bld) [Volum e fraction]Ordered By: Christa Lopez on 10-09-2021 Hematocrit (Bld) [Volume fraction] 47.1 % 34.0-46.4 [facility] Ketones Auto test strip (U) [Mass/Vol]Ordered By: Christa Lopez on 10-09-2021 Ketones (U) [Mass/Vol] Negative Negative [facility] - Chemistry and C hemistry - challengeOrdered By: Christa Lopez on 10-09-2021 Lipase [Catalytic activity/Vol] 242.0 U/L 22-51 [facility] - Drug toxicology Ordered By: Christa Lopez on 10-09-2021 Opiates Ql (U) Negative Negative [facility] - Hematology and Cell countsOrdered By: Christa Lopez on 10-09-2021 Nucleated RBC/100 WBC (Bld) [Ratio] 0.1 % 0-0.5 [facility] Lymphocytes Auto (Bld) [#/Vo l]Ordered By: Christa Lopez on 10-09-2021 Lymphocytes (Bld) [#/Vol] 2.6 10*3/uL 1.00-4.8 [facility] Lymphocytes/100 WBC Auto (Bl d)Ordered By: Christa Lopez on 10-09-2021 Lymphocytes/100 WBC (Bld) 26.0 % . [facility] MCH Auto (RBC) [Entitic mass ]Ordered By: Christa Lopez on 10-09-2021 MCH (RBC) [Entitic mass] 32.4 pg 24.7-34.3 [facility] MCHC Auto (RBC) [Mass/Vol]Or dered By: Christa Lopez on 10-09-2021 MCHC (RBC) [Mass/Vol] 33.3 g/dL 32.0-35.0 [facility] MCV Auto (RBC) [Entitic vol] Ordered By: Christa Lopez on 10-09-2021 MCV (RBC) [Entitic vol] 97.3 fL 80-100 [facility] Monocytes Auto (Bld) [#/Vol] Ordered By: Christa Lopez on 10-09-2021 Monocytes (Bld) [#/Vol] 0.8 10*3/uL 0.0-0.8 [facility] Monocytes/100 WBC Auto (Bld) Ordered By: Christa Lopez on 10-09-2021 Monocytes/100 WBC (Bld) 7.6 % . [facility] Neutrophils Auto (Bld) [#/Vo l]Ordered By: Christa Lopez on 10-09-2021 Neutrophils (Bld) [#/Vol] 6.5 10*3/uL 1.8-7.7 [facility] Neutrophils/100 WBC Auto (Bl d)Ordered By: Christa Lopez on 10-09-2021 Neutrophils/100 WBC (Bld) 64.3 % . [facility] No Panel InformationOrdered By: Christa Lopez on 10-09-2021 Estimated GFR () > 60 mL/Min [facility] Comment on above: GFR estimated refere nce range: According to KDOQI guidelines, <60 ml/min/1.73m2 is sufficient to diagnose a patient with chronic kidney disease. Pharmacy Creatinine Clearance (Chem 61.23 [facility] Phencyclidine Screen Ql (U)O rdered By: Christa Lopez on 10-09-2021 Phencyclidine Ql (U) Negative Negative [facility] Platelet mean volume Auto (B ld) [Entitic vol]Ordered By: Christa Lopez on 10-09-2021 Platelet mean volume (Bld) [Entitic vol] 8.5 fL 6.3-10.7 [facility] Platelets Auto (Bld) [#/Vol] Ordered By: Christa Lopez on 10-09-2021 Platelets (Bld) [#/Vol] 284 10*3/uL 150-450 [facility] Protein Auto test strip (U) [Mass/Vol]Ordered By: Christa Lopez on 10-09-2021 Protein (U) [Mass/Vol] Negative Negative [facility] Protein [Mass/volume] in Ser um or PlasmaOrdered By: Christa Lopez on 10-09-2021 Protein [Mass/Vol] 7.4 g/dL 6.1-7.9 [facility] RBC Auto (Bld) [#/Vol]Ordere d By: Christa Lopez on 10-09-2021 RBC (Bld) [#/Vol] 4.84 10*6/uL 3.60-5.00 [facility] Serum or plasma alanine hughes otransferase measurement without P-5'-P (enzymatic activiOrdered By: Christa Lopez on 10-09-2021 ALT No additional P-5'-P [Catalytic activity/Vol] 19 U/L 10-60 [facility] Serum or plasma albumin/glob ulin mass ratioOrdered By: Christa Lopez on 10-09-2021 Albumin/Globulin [Mass ratio] 1.6 {ratio} [facility] Serum or plasma alkaline jaqueline sphatase measurement (enzymatic activity/volume)Ordered By: Christa Lopez on 10-09-2021 ALP [Catalytic activity/Vol] 138 U/L 32-92 [facility] Serum or plasma aspartate am inotransferase measurement (enzymatic activity/volume)Ordered By: Chirsta Lopez on 10-09-2021 AST [Catalytic activity/Vol] 31 U/L 10-42 [facility] Serum or plasma calcium priscilla urement (mass/volume)Ordered By: Christa Lopez on 10-09-2021 Calcium [Mass/Vol] 10.3 mg/dL 8.2-10.2 [facility] Serum or plasma chloride daron surement (moles/volume)Ordered By: Christa Lopez on 10-09-2021 Chloride [Moles/Vol] 100 mmol/L 95-114 [facility] Serum or plasma glucose priscilla urement (mass/volume)Ordered By: Christa Lopez on 10-09-2021 Glucose [Mass/Vol] 75 mg/dL 70-100 [facility] Comment on above: ADA recommended refe rence range Random Glucose Reference Range is dependent on time and content of last meal. Glucose of more than 200 mg/dL in a nonstressed, ambulatory subject supports the diagnosis of Diabetes Mellitus. Serum or plasma potassium me asurement (moles/volume)Ordered By: Christa Lopez on 10-09-2021 Potassium [Moles/Vol] 3.9 mmol/L 3.5-5.1 [facility] Serum or plasma sodium measu rement (moles/volume)Ordered By: Christa Lopez on 10-09-2021 Sodium [Moles/Vol] 136 mmol/L 136-146 [facility] Serum or plasma total biliru bin measurement (mass/volume)Ordered By: Christa Lopez on 10-09-2021 Bilirubin [Mass/Vol] 0.4 mg/dL 0.3-1.2 [facility] Serum or plasma total carbon dioxide measurement (moles/volume)Ordered By: Christa Lopez on 10-09-2021 CO2 [Moles/Vol] 24.1 mmol/L 22.0-30.0 [facility] Serum or plasma urea nitroge n measurement (mass/volume)Ordered By: Christa Lopez on 10-09-2021 Urea nitrogen [Mass/Vol] 12 mg/dL 9-23 [facility] Troponin I.cardiac [Mass/vol ume] in Serum or Plasma by High sensitivity methodOrdered By: Christa Lopez on 10-09-2021 Troponin I.cardiac High sensitivity method [Mass/Vol] 3 pg/mL 0-15 [facility] Urine appearanceOrdered By: Christa Lopez on 10-09-2021 Appearance (U) Clear Clear [facility] Urine cocaine detectionOrder ed By: Christa Lopez on 10-09-2021 Cocaine Ql (U) Negative Negative [facility] Urine colorOrdered By: Christa Lopez on 10-09-2021 Color (U) Yellow Yellow [facility] Urine glucose measurement by automated test strip (mass/volume)Ordered By: Christa Lopez on 10-09-2021 Glucose Auto test strip (U) [Mass/Vol] Normal mg/dL Normal [facility] Urine hemoglobin detection b y automated test stripOrdered By: Christa Lopez on 10-09-2021 Hemoglobin Auto test strip Ql (U) Negative Negative [facility] Urine leukocyte esterase det ection by automated test stripOrdered By: Christa Lopez on 10-09-2021 Leukocyte esterase Auto test strip Ql (U) Negative Negative [facility] Urine nitrite detection by a utomated test stripOrdered By: Christa Lopez on 10-09-2021 Nitrite Auto test strip Ql (U) Negative Negative [facility] Urobilinogen Auto test strip (U) [Mass/Vol]Ordered By: Christa Lopez on 10-09-2021 Urobilinogen (U) [Mass/Vol] Normal mg/dL Normal [facility] pH Auto test strip (U)Ordere d By: Christa Lopez on 10-09-2021 pH (U) 1.025 [pH] 1.001-1.03 0 [facility] pH (U) 5.5 [pH] 5.0-9.0 [facility] Albumin [Mass/volume] in Ser um or PlasmaOrdered By: Reinaldo Amor on 10-04-2021 Albumin [Mass/Vol] 3.6 g/dL 3.2-5.5 [facility] Basophils Auto (Bld) [#/Vol] Ordered By: Reinaldo Amor on 10-04-2021 Basophils (Bld) [#/Vol] 0.1 10*3/uL 0.0-0.2 [facility] Basophils/100 WBC Auto (Bld) Ordered By: Reinaldo Amor on 10-04-2021 Basophils/100 WBC (Bld) 0.8 % . [facility] Bilirubin Auto test strip Ql (U)Ordered By: Reinaldo Amor on 10-04-2021 Bilirubin Ql (U) Negative Negative [facility] Blood hemoglobin measurement (mass/volume)Ordered By: Reinaldo Amor on 10-04-2021 Hemoglobin (Bld) [Mass/Vol] 13.9 g/dL 11.8-15.4 [facility] Blood leukocytes automated c ount (number/volume)Ordered By: Reinaldo Amor on 10-04-2021 WBC (Bld) [#/Vol] 10.4 10*3/uL 4.5-11.0 [facility] Creatinine and Glomerular fi ltration rate.predicted panel (S/P/Bld)Ordered By: Reinaldo Amor on 10-04-2021 Creatinine [Mass/Vol] 0.73 mg/dL 0.44-1.03 [facility] Direct bilirubin measurement Ordered By: Reinaldo Amor on 10-04-2021 Bilirubin.direct [Mass/Vol] mg/dL 0.0-0.4 [facility] Eosinophils Auto (Bld) [#/Vo l]Ordered By: Reinaldo Amor on 10-04-2021 Eosinophils (Bld) [#/Vol] 0.1 10*3/uL 0.0-0.45 [facility] Eosinophils/100 WBC Auto (Bl d)Ordered By: Reinaldo Amor on 10-04-2021 Eosinophils/100 WBC (Bld) 0.5 % . [facility] Erythrocyte distribution wid th Auto (RBC) [Ratio]Ordered By: Reinaldo Amor on 10-04-2021 Erythrocyte distribution width (RBC) [Ratio] 13.7 % 11.9-15.3 [facility] Estimated glomerular filtrat ion rate (GFR) non- AmericanOrdered By: Reinaldo Amor on 10-04-2021 GFR/1.73 sq M.predicted among non-blacks MDRD (S/P/Bld) [Vol rate/Area] > 60 mL/Min [facility] Globulin Calc (S) [Mass/Vol] Ordered By: Reinaldo Amor on 10-04-2021 Globulin (S) [Mass/Vol] 2.6 g/dL [facility] Hematocrit Auto (Bld) [Volum e fraction]Ordered By: Reinaldo Amor on 10-04-2021 Hematocrit (Bld) [Volume fraction] 41.1 % 34.0-46.4 [facility] Ketones Auto test strip (U) [Mass/Vol]Ordered By: Reinaldo Amor on 10-04-2021 Ketones (U) [Mass/Vol] Negative Negative [facility] - Chemistry and C hemistry - challengeOrdered By: Reinaldo Amor on 10-04-2021 Lipase [Catalytic activity/Vol] 107.0 U/L [facility] - Hematology and Cell countsOrdered By: Reinaldo Amor on 10-04-2021 Nucleated RBC/100 WBC (Bld) [Ratio] 0.1 % 0-0.5 [facility] Lymphocytes Auto (Bld) [#/Vo l]Ordered By: Reinaldo Amor on 10-04-2021 Lymphocytes (Bld) [#/Vol] 2.5 10*3/uL 1.00-4.8 [facility] Lymphocytes/100 WBC Auto (Bl d)Ordered By: Reinaldo Amor on 10-04-2021 Lymphocytes/100 WBC (Bld) 24.1 % . [facility] MCH Auto (RBC) [Entitic mass ]Ordered By: Reinaldo Amor on 10-04-2021 MCH (RBC) [Entitic mass] 32.6 pg 24.7-34.3 [facility] MCHC Auto (RBC) [Mass/Vol]Or dered By: Reinaldo Amor on 10-04-2021 MCHC (RBC) [Mass/Vol] 33.8 g/dL 32.0-35.0 [facility] MCV Auto (RBC) [Entitic vol] Ordered By: Reinaldo Amor on 10-04-2021 MCV (RBC) [Entitic vol] 96.5 fL 80-100 [facility] Monocytes Auto (Bld) [#/Vol] Ordered By: Reinaldo Amor on 10-04-2021 Monocytes (Bld) [#/Vol] 0.9 10*3/uL 0.0-0.8 [facility] Monocytes/100 WBC Auto (Bld) Ordered By: Reinaldo Amor on 10-04-2021 Monocytes/100 WBC (Bld) 8.4 % . [facility] Neutrophils Auto (Bld) [#/Vo l]Ordered By: Reinaldo Amor on 10-04-2021 Neutrophils (Bld) [#/Vol] 6.9 10*3/uL 1.8-7.7 [facility] Neutrophils/100 WBC Auto (Bl d)Ordered By: Reinaldo Amor on 10-04-2021 Neutrophils/100 WBC (Bld) 66.2 % . [facility] No Panel InformationOrdered By: Reinaldo Amor on 10-04-2021 Estimated GFR () > 60 mL/Min [facility] Comment on above: GFR estimated refere nce range: According to KDOQI guidelines, <60 ml/min/1.73m2 is sufficient to diagnose a patient with chronic kidney disease. Pharmacy Creatinine Clearance (Chem 71.30 [facility] Platelet mean volume Auto (B ld) [Entitic vol]Ordered By: Reinaldo Amor on 10-04-2021 Platelet mean volume (Bld) [Entitic vol] 8.0 fL 6.3-10.7 [facility] Platelets Auto (Bld) [#/Vol] Ordered By: Reinaldo Amor on 10-04-2021 Platelets (Bld) [#/Vol] 268 10*3/uL 150-450 [facility] Protein Auto test strip (U) [Mass/Vol]Ordered By: Reinaldo Amor on 10-04-2021 Protein (U) [Mass/Vol] Negative Negative [facility] Protein [Mass/volume] in Ser um or PlasmaOrdered By: Reinaldo Amor on 10-04-2021 Protein [Mass/Vol] 6.2 g/dL 6.1-7.9 [facility] RBC Auto (Bld) [#/Vol]Ordere d By: Reinaldo Amor on 10-04-2021 RBC (Bld) [#/Vol] 4.26 10*6/uL 3.60-5.00 [facility] Serum or plasma alanine hughes otransferase measurement without P-5'-P (enzymatic activiOrdered By: Reinaldo Amor on 10-04-2021 ALT No additional P-5'-P [Catalytic activity/Vol] 15 U/L 10-60 [facility] Serum or plasma albumin/glob ulin mass ratioOrdered By: Reinaldo Amor on 10-04-2021 Albumin/Globulin [Mass ratio] 1.4 {ratio} [facility] Serum or plasma alkaline jaqueline sphatase measurement (enzymatic activity/volume)Ordered By: Reinaldo Amor on 10-04-2021 ALP [Catalytic activity/Vol] 103 U/L 32-92 [facility] Serum or plasma amylase priscilla urement (enzymatic activity/volume)Ordered By: Reinaldo Amor on 10-04-2021 Amylase [Catalytic activity/Vol] 134 U/L 28-100 [facility] Serum or plasma aspartate am inotransferase measurement (enzymatic activity/volume)Ordered By: Reinaldo Amor on 10-04-2021 AST [Catalytic activity/Vol] 20 U/L 10-42 [facility] Serum or plasma calcium priscilla urement (mass/volume)Ordered By: Reinaldo Amor on 10-04-2021 Calcium [Mass/Vol] 9.6 mg/dL 8.2-10.2 [facility] Serum or plasma chloride daron surement (moles/volume)Ordered By: Reinaldo Amor on 10-04-2021 Chloride [Moles/Vol] 103 mmol/L 95-114 [facility] Serum or plasma ethanol priscilla urement (mass/volume)Ordered By: Reinaldo Amor on 10-04-2021 Ethanol [Mass/Vol] mg/dL [facility] Ethanol [Mass/Vol] TNP [facility] Comment on above: Test not performed Serum or plasma glucose priscilla urement (mass/volume)Ordered By: Reinaldo Amor on 10-04-2021 Glucose [Mass/Vol] 120 mg/dL 70-100 [facility] Comment on above: ADA recommended refe rence range Random Glucose Reference Range is dependent on time and content of last meal. Glucose of more than 200 mg/dL in a nonstressed, ambulatory subject supports the diagnosis of Diabetes Mellitus. Serum or plasma non-glucuron idated bilirubin measurement (mass/volume)Ordered By: Reinaldo Amor on 10-04-2021 Bilirubin.indirect [Mass/Vol] [facility] Comment on above: Test not performed Serum or plasma potassium me asurement (moles/volume)Ordered By: Reinaldo Amor on 10-04-2021 Potassium [Moles/Vol] 3.7 mmol/L 3.5-5.1 [facility] Serum or plasma sodium measu rement (moles/volume)Ordered By: Reinaldo Amor on 10-04-2021 Sodium [Moles/Vol] 137 mmol/L 136-146 [facility] Serum or plasma total biliru bin measurement (mass/volume)Ordered By: Reinaldo Amor on 10-04-2021 Bilirubin [Mass/Vol] 0.5 mg/dL 0.3-1.2 [facility] Serum or plasma total carbon dioxide measurement (moles/volume)Ordered By: Reinaldo Amor on 10-04-2021 CO2 [Moles/Vol] 24.9 mmol/L 22.0-30.0 [facility] Serum or plasma urea nitroge n measurement (mass/volume)Ordered By: Reinaldo Amor on 10-04-2021 Urea nitrogen [Mass/Vol] 7 mg/dL 9- [facility] Urine appearanceOrdered By: Reinaldo Amor on 10-04-2021 Appearance (U) Clear Clear [facility] Urine colorOrdered By: Ml Amor on 10-04-2021 Color (U) Yellow Yellow [facility] Urine glucose measurement by automated test strip (mass/volume)Ordered By: Reinaldo Amor on 10-04-2021 Glucose Auto test strip (U) [Mass/Vol] Normal mg/dL Normal [facility] Urine hemoglobin detection b y automated test stripOrdered By: Reinaldo Amor on 10-04-2021 Hemoglobin Auto test strip Ql (U) Negative Negative [facility] Urine leukocyte esterase det ection by automated test stripOrdered By: Reinaldo Amor on 10-04-2021 Leukocyte esterase Auto test strip Ql (U) Negative Negative [facility] Urine nitrite detection by a utomated test stripOrdered By: Reinaldo Amor on 10-04-2021 Nitrite Auto test strip Ql (U) Negative Negative [facility] Urobilinogen Auto test strip (U) [Mass/Vol]Ordered By: Reinaldo Amor on 10-04-2021 Urobilinogen (U) [Mass/Vol] Normal mg/dL Normal [facility] pH Auto test strip (U)Ordere d By: Reinaldo Amor on 10-04-2021 pH (U) 1.030 [pH] 1.001-1.03 0 [facility] pH (U) 5.5 [pH] 5.0-9.0 [facility] Basophils Auto (Bld) [#/Vol] Ordered By: Reinaldo Amor on 09-25-2021 Basophils (Bld) [#/Vol] 0.1 10*3/uL 0.0-0.2 [facility] Basophils/100 WBC Auto (Bld) Ordered By: Reinaldo Amor on 09-25-2021 Basophils/100 WBC (Bld) 1.2 % . [facility] Blood hemoglobin measurement (mass/volume)Ordered By: Reinaldo Amor on 09-25-2021 Hemoglobin (Bld) [Mass/Vol] 14.2 g/dL 11.8-15.4 [facility] Blood leukocytes automated c ount (number/volume)Ordered By: Reinaldo Amor on 09-25-2021 WBC (Bld) [#/Vol] 9.3 10*3/uL 4.5-11.0 [facility] Body fluid albumin measureme nt (mass/volume)Ordered By: PROVIDER JONATHAN on 09-25-2021 Albumin (Body fld) [Mass/Vol] 4.3 g/dL 3.2-5.5 [facility] Creatinine and Glomerular fi ltration rate.predicted panel (S/P/Bld)Ordered By: PROVIDER JONATHAN on 09-25-2021 Creatinine [Mass/Vol] 0.82 mg/dL 0.44-1.03 [facility] Eosinophils Auto (Bld) [#/Vo l]Ordered By: Reinaldo Amor on 09-25-2021 Eosinophils (Bld) [#/Vol] 0.2 10*3/uL 0.0-0.45 [facility] Eosinophils/100 WBC Auto (Bl d)Ordered By: Reinaldo Amor on 09-25-2021 Eosinophils/100 WBC (Bld) 1.9 % . [facility] Erythrocyte distribution wid th Auto (RBC) [Ratio]Ordered By: Reinaldo Amor on 09-25-2021 Erythrocyte distribution width (RBC) [Ratio] 13.7 % 11.9-15.3 [facility] Estimated glomerular filtrat ion rate (GFR) non- AmericanOrdered By: PROVIDER JONATHAN on 09-25-2021 GFR/1.73 sq M.predicted among non-blacks MDRD (S/P/Bld) [Vol rate/Area] > 60 mL/Min [facility] Globulin Calc (S) [Mass/Vol] Ordered By: PROVIDER JONATHAN on 09-25-2021 Globulin (S) [Mass/Vol] 3.3 g/dL [facility] Hematocrit Auto (Bld) [Volum e fraction]Ordered By: Reinaldo Amor on 09-25-2021 Hematocrit (Bld) [Volume fraction] 42.1 % 34.0-46.4 [facility] - Chemistry and C hemistry - challengeOrdered By: Reinaldo Amor on 09-25-2021 Lipase [Catalytic activity/Vol] 64.0 U/L 22-51 [facility] - Hematology and Cell countsOrdered By: Reinaldo Amor on 09-25-2021 Nucleated RBC/100 WBC (Bld) [Ratio] 0.1 % 0-0.5 [facility] Lymphocytes Auto (Bld) [#/Vo l]Ordered By: Reinaldo Amor on 09-25-2021 Lymphocytes (Bld) [#/Vol] 2.6 10*3/uL 1.00-4.8 [facility] Lymphocytes/100 WBC Auto (Bl d)Ordered By: Reinaldo Amor on 09-25-2021 Lymphocytes/100 WBC (Bld) 28.1 % . [facility] MCH Auto (RBC) [Entitic mass ]Ordered By: Reinaldo Amor on 09-25-2021 MCH (RBC) [Entitic mass] 32.5 pg 24.7-34.3 [facility] MCHC Auto (RBC) [Mass/Vol]Or dered By: Reinaldo Amor on 09-25-2021 MCHC (RBC) [Mass/Vol] 33.7 g/dL 32.0-35.0 [facility] MCV Auto (RBC) [Entitic vol] Ordered By: Reinaldo Amor on 09-25-2021 MCV (RBC) [Entitic vol] 96.7 fL 80-100 [facility] Monocytes Auto (Bld) [#/Vol] Ordered By: Reinaldo Amor on 09-25-2021 Monocytes (Bld) [#/Vol] 0.8 10*3/uL 0.0-0.8 [facility] Monocytes/100 WBC Auto (Bld) Ordered By: Reinaldo Amor on 09-25-2021 Monocytes/100 WBC (Bld) 8.2 % . [facility] Neutrophils Auto (Bld) [#/Vo l]Ordered By: Reinaldo Amor on 09-25-2021 Neutrophils (Bld) [#/Vol] 5.6 10*3/uL 1.8-7.7 [facility] Neutrophils/100 WBC Auto (Bl d)Ordered By: Reinaldo Amor on 09-25-2021 Neutrophils/100 WBC (Bld) 60.6 % . [facility] No Panel InformationOrdered By: PROVIDER JONATHAN on 09-25-2021 Estimated GFR () > 60 mL/Min [facility] Comment on above: GFR estimated refere nce range: According to KDOQI guidelines, <60 ml/min/1.73m2 is sufficient to diagnose a patient with chronic kidney disease. Pharmacy Creatinine Clearance (Chem 63.47 [facility] Platelet mean volume Auto (B ld) [Entitic vol]Ordered By: Reinaldo Amor on 09-25-2021 Platelet mean volume (Bld) [Entitic vol] 8.6 fL 6.3-10.7 [facility] Platelets Auto (Bld) [#/Vol] Ordered By: Reinaldo Amor on 09-25-2021 Platelets (Bld) [#/Vol] 221 10*3/uL 150-450 [facility] Protein [Mass/volume] in Ser um or PlasmaOrdered By: PROVIDER JONATHAN on 09-25-2021 Protein [Mass/Vol] 7.6 g/dL 6.1-7.9 [facility] RBC Auto (Bld) [#/Vol]Ordere d By: Reinaldo Amor on 09-25-2021 RBC (Bld) [#/Vol] 4.35 10*6/uL 3.60-5.00 [facility] Serum or plasma alanine hughes otransferase measurement without P-5'-P (enzymatic activiOrdered By: PROVIDER [facility] on 09-25-2021 ALT No additional P-5'-P [Catalytic activity/Vol] 14 U/L 10-60 [facility] Serum or plasma albumin/glob ulin mass ratioOrdered By: PROVIDER [facility] Albumin/Globulin [Mass ratio] 1.3 {ratio} [facility] Serum or plasma alkaline jaqueline sphatase measurement (enzymatic activity/volume)Ordered By: PROVIDER TEMMaty on 09-25-2021 ALP [Catalytic activity/Vol] 127 U/L 32-92 [facility] Serum or plasma amylase priscilla urement (enzymatic activity/volume)Ordered By: Reinaldo Amor on 09-25-2021 Amylase [Catalytic activity/Vol] 171 U/L 28-100 [facility] Serum or plasma aspartate am inotransferase measurement (enzymatic activity/volume)Ordered By: PROVIDER TEMP on 09-25-2021 AST [Catalytic activity/Vol] 21 U/L 10-42 [facility] Serum or plasma calcium priscilla urement (mass/volume)Ordered By: PROVIDER TEMP on 09-25-2021 Calcium [Mass/Vol] 10.1 mg/dL 8.2-10.2 [facility] Serum or plasma chloride daron surement (moles/volume)Ordered By: PROVIDER TEMP on 09-25-2021 Chloride [Moles/Vol] 103 mmol/L 95-114 [facility] [place] Serum or plasma glucose priscilla urement (mass/volume)Ordered By: PROVIDER TEMP on 09-25-2021 Glucose [Mass/Vol] 93 mg/dL 70-100 [facility] Comment on above: ADA recommended refe rence range Random Glucose Reference Range is dependent on time and content of last meal. Glucose of more than 200 mg/dL in a nonstressed, ambulatory subject supports the diagnosis of Diabetes Mellitus. Serum or plasma potassium me asurement (moles/volume)Ordered By: PROVIDER TEMP on 09-25-2021 Potassium [Moles/Vol] 3.9 mmol/L 3.5-5.1 [facility] Serum or plasma sodium measu rement (moles/volume)Ordered By: PROVIDER TEMP on 09-25-2021 Sodium [Moles/Vol] 137 mmol/L 136-146 [facility] Serum or plasma total biliru bin measurement (mass/volume)Ordered By: PROVIDER TEMP on 09-25-2021 Bilirubin [Mass/Vol] 0.3 mg/dL 0.3-1.2 [facility] [place] Serum or plasma total carbon dioxide measurement (moles/volume)Ordered By: PROVIDER TEMP on 09-25-2021 CO2 [Moles/Vol] 26.3 mmol/L 22.0-30.0 [facility] Serum or plasma urea nitroge n measurement (mass/volume)Ordered By: PROVIDER TEMP on 09-25-2021 Urea nitrogen [Mass/Vol] 8 mg/dL 11-29 [facility] AMYLASEon 09-17-2021 Amylase [Catalytic activity/Vol] 142 U/L Critically high 25-115 [facility] Comment on above: Performed By: #### A MY, CMP, LIPA ####[facility] [address] [place] [address]Dr. Keturah Fisher CBC AUTO DIFFon 09-17-2021 BASO # 0.1 103/ul Normal 0.0-0.1 [facility] Comment on above: Performed By: #### C BC ####[facility] [address] [place] [address]Dr. Keturah Fisher Basophils/100 WBC (Bld) 0.7 % Normal 0.2-2.0 [facility] Comment on above: Performed By: #### C BC ####[facility] Bj[address] [place], [place] [address]Dr. Keturah Fisher EO # 0.1 103/ul Normal 0.0-0.7 [facility] Comment on above: Performed By: #### C BC ####[facility] Enf[address] [place], [place] [address]Dr. Keturah Fisher Eosinophils/100 WBC (Bld) 1.3 % Normal 0.9-7.0 [facility] Comment on above: Performed By: #### C BC ####[facility] [address] [place], [place] [address]Dr. Keturah Fisher Erythrocyte distribution width (RBC) [Ratio] 13.2 % Normal 11.0-15.0 [facility] Comment on above: Performed By: #### C BC ####[facility] Z[address] [place], [place] [address]Dr. Keturah Fisher Hematocrit (Bld) [Volume fraction] 43.7 % Normal 36.0-48.0 [facility] Comment on above: Performed By: #### C BC ####[facility] Eniathe[address] [place], [place] [address]Dr. Keturah Fisher Hemoglobin (Bld) [Mass/Vol] 14.7 g/dL Normal 12.0-16.0 [facility] Comment on above: Performed By: #### C BC ####[facility] [address] [place] [id number]. Keturah Fisher IG # 0.01 10e3/ul Normal 0.00-0.03 [facility] Comment on above: Performed By: #### C BC ####[facility] [address] [place] [id number]. Keturah Phillip IG % 0.1 % Normal 0.0-0.5 [facility] Comment on above: Performed By: #### C BC ####[facility] [address] [place] [address]Dr. Keturah Phillip LYMPH # 2.7 103/ul Normal 1.2-3.8 [facility] Comment on above: Performed By: #### C BC ####[facility] [address] [place] [address]Dr. Keturah Fisher Lymphocytes/100 WBC (Bld) 30.1 % Normal 20.5-60.0 [facility] Comment on above: Performed By: #### C BC ####[facility] [address] [place] [address]Dr. Elisaeli Fisher MANUAL DIFF REQ NO Normal [facility] Comment on above: Performed By: #### C BC ####[facility] [address] [place] [address]Dr. Keturah Phillip MCH (RBC) [Entitic mass] 32.4 pg Normal 26.7-34.0 [facility] Comment on above: Performed By: #### C BC ####[facility] [address] [place] [address]Dr. Keturah Phillip MCHC (RBC) [Mass/Vol] 33.6 g/dL Normal 29.9-35.2 [facility] Comment on above: Performed By: #### C BC ####[facility] [address] [place] [address]Dr. Keturah Phillip MCV (RBC) [Entitic vol] 96.3 fL Normal 81.0-99.0 [facility] Comment on above: Performed By: #### C BC ####[facility] [address] [place] [id number]. Keturah Fisher MONO # 0.8 103/ul Normal 0.3-0.8 [facility] Comment on above: Performed By: #### C BC ####[facility] [address] [place] [id number]. Keturah Fisher Monocytes/100 WBC (Bld) 8.7 % Normal 1.7-12.0 [facility] Comment on above: Performed By: #### C BC ####[facility] [address] [place] [id number]. Keturah Fisher NEUT # 5.4 103/ul Normal 1.4-6.5 [facility] Comment on above: Performed By: #### C BC ####[facility] [address] [place] [address]Dr. Keturah Fisher Neutrophils/100 WBC (Bld) 59.1 % Normal 43.0-75.0 [facility] Comment on above: Performed By: #### C BC ####[facility] [address] [place] [id number]. Keturah Fisher Platelet mean volume (Bld) [Entitic vol] 9.6 fL Normal 9.5-13.5 [facility] Comment on above: Performed By: #### C BC ####[facility] [address] [place] [id number]. Keturah Fisher PLT 272 103/ul Normal 150-450 [facility] Comment on above: Performed By: #### C BC ####[facility] Pix[address]egh[address] [place] [id number]. Keturah Fisher RBC 4.54 106/ul Normal 4.20-5.40 [facility] Comment on above: Performed By: #### C BC ####[facility] [address] [place] [id number]. Keturah Fisher WBC 9.1 103/ul Normal 4.0-11.0 [facility] Comment on above: Performed By: #### C BC ####[facility] [address] [place], [place] [id number]. Keturah Fisher ETHANOL (BLD ALC)on 09-18-19 22 ALC NOTE NOTE: 80 mg/dl is e legal limit for a blood alcohol level Normal [facility] Comment on above: Performed By: #### L IPA, CMP, CRP, NAT #### [facility] [address] [place] [address] Dr. Keturah Fisher Ethanol [Mass/Vol] mg/dL Normal [facility] Comment on above: Performed By: #### L IPA, CMP, CRP, NAT #### [facility] [address] [place] [address] Dr. Keturah Fisher LIPASEon 09-17-2021 Lipase [Catalytic activity/Vol] 524.0 U/L Critically high 73.0-393.0 [facility] Comment on above: Performed By: #### C BC #### [facility] [address] [place] [address] Dr. Keturah Fisher PROF 14(COMP METB)on 022 Albumin [Mass/Vol] 3.9 g/dL Normal 3.4-5.0 [facility] Comment on above: Performed By: #### C BC #### [facility] [address] [place] [address] Dr. Keturah Fisher Albumin/Globulin [Mass ratio] 1.1 {ratio} Normal [facility] Comment on above: Performed By: #### C BC #### [facility] [address] [place] [address] Dr. Keturah Fisher ALP [Catalytic activity/Vol] 136 U/L Critically high 46-116 [facility] Comment on above: Performed By: #### C BC #### [facility] [address] [place] [address] Dr. Keturah iFsher ALT [Catalytic activity/Vol] 21 U/L Normal 14-59 [facility] Comment on above: Performed By: #### C BC #### [facility] [address] [place] [address] Dr. Keturah Fisher Anion gap [Moles/Vol] 12.7 mmol/L Normal e [facility] Comment on above: Performed By: #### C BC #### [facility] [address] [place] [address] [address] Keturah Fisher AST [Catalytic activity/Vol] 16 U/L Normal 15-37 [facility] Comment on above: Performed By: #### C BC #### [facility] [address] [address] [address] Keturah Fisher Bilirubin [Mass/Vol] 0.2 mg/dL Normal 0.2-1.0 [facility] Comment on above: Performed By: #### C BC #### [facility] [address] [address] [address] Keturah Fisher Calcium [Mass/Vol] 9.9 mg/dL Normal 8.5-10.1 [facility] Comment on above: Performed By: #### C BC #### [facility] [address] [place] [address] Dr. Keturah Fisher Chloride [Moles/Vol] 106 mmol/L Normal 98-107 [facility] Comment on above: Performed By: #### C BC #### [facility] [address] [address] [address] Keturah Fisher CO2 [Moles/Vol] 25.9 mmol/L Normal 21.0-32.0 [facility] Comment on above: Performed By: #### C BC #### [facility] [address] [place] [address] Dr. Keturah Fisher Creatinine [Mass/Vol] 0.96 mg/dL Normal 0.55-1.02 [facility] Comment on above: Performed By: #### C BC #### [facility] [address] [place] [address] Dr. Keturah Fisher EGFR-AF GREENLANDIC >60 Normal >=60 [facility] Comment on above: Performed By: #### C BC #### [facility] [address] [place] [address] Dr. Keturah Fisher EGFR-NON AF GREENLANDIC >60 Normal >=60 [facility] Comment on above: Performed By: #### C BC #### [facility] [address] [place] [address] Dr. Keturah Fisher Globulin (S) [Mass/Vol] 3.5 g/dL Normal [facility] Comment on above: Performed By: #### C BC #### [facility] [address] [address] [address] Keturah Fisher Glucose [Mass/Vol] 113 mg/dL Critically high 74-106 [facility] Comment on above: Performed By: #### C BC #### [facility] [address] [address] [address] Keturah Fisher Potassium [Moles/Vol] 3.6 mmol/L Normal 3.5-5.1 [facility] Comment on above: Performed By: #### C BC #### [facility] [address] [address] [address] Keturah Fisher Protein [Mass/Vol] 7.4 g/dL Normal 6.4-8.2 [facility] Comment on above: Performed By: #### C BC #### [facility] [address] [address] [address] Keturah Fisher Sodium [Moles/Vol] 141 mmol/L Normal 136-145 [facility] Comment on above: Performed By: #### C BC #### [facility] [address] [address] [address] Keturah Fisher Urea nitrogen [Mass/Vol] 8.0 mg/dL Normal 7.0-18.0 [facility] Comment on above: Performed By: #### C BC #### [facility] [address] [address] [address] Keturah Fisher Urea nitrogen/Creatinine [Mass ratio] 8.3 mg/mg Normal [facility] Comment on above: Performed By: #### C BC #### [facility] [address] [address] [address] Keturah Fisher AMYLASEon 08-26-2021 Amylase [Catalytic activity/Vol] 94 U/L Normal 25-115 [facility] Comment on above: Performed By: #### A MY, CMP, LIPA ####[facility] [address] [place] [address]Dr. Keturah Fisher CBC AUTO DIFFon 08-26-2021 BASO # 0.1 103/ul Normal 0.0-0.1 [facility] Comment on above: Performed By: #### L IPA, CMP, CRP, NAT #### [facility] [address] [place] [address] Dr. Keturah Fisher Basophils/100 WBC (Bld) 0.7 % Normal 0.2-2.0 [facility] Comment on above: Performed By: #### L IPA, CMP, CRP, NAT #### [facility] [address] [place] [address] Dr. Keturah Fisher EO # 0.2 103/ul Normal 0.0-0.7 [facility] Comment on above: Performed By: #### L IPA, CMP, CRP, NAT #### [facility] [address] [place] [address] Dr. Keturah Fisher Eosinophils/100 WBC (Bld) 2.5 % Normal 0.9-7.0 [facility] Comment on above: Performed By: #### L IPA, CMP, CRP, NAT #### [facility] [address] [place] [address] Dr. Keturah Fisher Erythrocyte distribution width (RBC) [Ratio] 13.1 % Normal 11.0-15.0 [facility] Comment on above: Performed By: #### L IPA, CMP, CRP, NAT #### [facility] [address] [place] [address] Dr. Keturah Fisher Hematocrit (Bld) [Volume fraction] 42.4 % Normal 36.0-48.0 [facility] Comment on above: Performed By: #### L IPA, CMP, CRP, NAT #### [facility] [address] [place] [address] Dr. Keturah Fisher Hemoglobin (Bld) [Mass/Vol] 14.1 g/dL Normal 12.0-16.0 [facility] Comment on above: Performed By: #### L IPA, CMP, CRP, NAT #### [facility] [address] [place] [address] Dr. Keturah Fisher IG # 0.03 10e3/ul Normal 0.00-0.03 [facility] Comment on above: Performed By: #### L IPA, CMP, CRP, NAT #### [facility] [address] [place] [address] Dr. Keturah Fisher IG % 0.3 % Normal 0.0-0.5 [facility] Comment on above: Performed By: #### L IPA, CMP, CRP, NAT #### [facility] [address] [place] [address] Dr. Keturah Fisher LYMPH # 2.6 103/ul Normal 1.2-3.8 [facility] Comment on above: Performed By: #### L IPA, CMP, CRP, NAT #### [facility] [address] [place] [address] Dr. Keturah Fisher Lymphocytes/100 WBC (Bld) 27.7 % Normal 20.5-60.0 [facility] Comment on above: Performed By: #### L IPA, CMP, CRP, NAT #### [facility] [address] [place] [address] Dr. Keturah Fisher MANUAL DIFF REQ NO Normal [facility] Comment on above: Performed By: #### L IPA, CMP, CRP, NAT #### [facility] [address] [place] [address] Dr. Keturah Fisher MCH (RBC) [Entitic mass] 32.6 pg Normal 26.7-34.0 [facility] Comment on above: Performed By: #### L IPA, CMP, CRP, NAT #### [facility] [address] [place] [address] Dr. Keturah Fisher MCHC (RBC) [Mass/Vol] 33.3 g/dL Normal 29.9-35.2 [facility] Comment on above: Performed By: #### L IPA, CMP, CRP, NAT #### [facility] [address] [place] [address] Dr. Keturah Fisher MCV (RBC) [Entitic vol] 97.9 fL Normal 81.0-99.0 [facility] Comment on above: Performed By: #### L IPA, CMP, CRP, NAT #### [facility] [address] [place] [address] Dr. Keturah Fisher MONO # 1.2 103/ul Critically high 0.3-0.8 [facility] Comment on above: Performed By: #### L IPA, CMP, CRP, NAT #### [facility] [address] [place] [address] Dr. Keturah Fisher Monocytes/100 WBC (Bld) 12.9 % Critically high 1.7-12.0 [facility] Comment on above: Performed By: #### L IPA, CMP, CRP, NAT #### [facility] [address] [place] [address] Dr. Ketruah Fisher NEUT # 5.3 103/ul Normal 1.4-6.5 [facility] Comment on above: Performed By: #### L IPA, CMP, CRP, NAT #### [facility] [address] [place] [address] Dr. Keturah Fisher Neutrophils/100 WBC (Bld) 55.9 % Normal 43.0-75.0 [facility] Comment on above: Performed By: #### L IPA, CMP, CRP, NAT #### [facility] [address] [place] [address] Dr. Keturah Fisher Platelet mean volume (Bld) [Entitic vol] 9.8 fL Normal 9.5-13.5 [facility] Comment on above: Performed By: #### L IPA, CMP, CRP, NAT #### [facility] [address] [place] [address] Dr. Keturah Fisher PLT 229 103/ul Normal 150-450 [facility] Comment on above: Performed By: #### L IPA, CMP, CRP, NAT #### [facility] [address] [place] [address] Dr. Keturah Fisher RBC 4.33 106/ul Normal 4.20-5.40 [facility] Comment on above: Performed By: #### L IPA, CMP, CRP, NAT #### [facility] [address] [place] [address] Dr. Keturah Fisher WBC 9.5 103/ul Normal 4.0-11.0 [facility] Comment on above: Performed By: #### L IPA, CMP, CRP, NAT #### [facility] [address] [place], [place] [address] Dr. Keturah Fisher LIPASEon 08-26-2021 Lipase [Catalytic activity/Vol] 146.0 U/L Normal 73.0-393.0 [facility] Comment on above: Performed By: #### A MY, CMP, LIPA ####[facility] [address] [place] [address]DrGopal Fisher PROF 14(COMP METB)on 022 Albumin [Mass/Vol] 3.5 g/dL Normal 3.4-5.0 [facility] Comment on above: Performed By: #### A MY, CMP, LIPA ####[facility] [address] [place] [address]DrGopal Fisher Albumin/Globulin [Mass ratio] 1.1 {ratio} Normal [facility] Comment on above: Performed By: #### A MY, CMP, LIPA ####[facility] [address]xs[address] [place] [address]DrGopal Fisher ALP [Catalytic activity/Vol] 139 U/L Critically high 46-116 [facility] Comment on above: Performed By: #### A MY, CMP, LIPA ####[facility] [address] [place] [id number] Fisher ALT [Catalytic activity/Vol] 21 U/L Normal 14-59 [facility] Comment on above: Performed By: #### A MY, CMP, LIPA ####[facility] [address] [place] [address]DrGopal Fisher Anion gap [Moles/Vol] 11.4 mmol/L Normal [facility] Comment on above: Performed By: #### A MY, CMP, LIPA ####[facility] [address] [place] [address]DrGopal Fisher AST [Catalytic activity/Vol] 21 U/L Normal 15-37 [facility] Comment on above: Performed By: #### A MY, CMP, LIPA ####[facility] [address] [place] [address]Dr. Keturah Fisher Bilirubin [Mass/Vol] 0.2 mg/dL Normal 0.2-1.0 [facility] Comment on above: Performed By: #### A MY, CMP, LIPA ####[facility] [address] [place], [place] [address]Dr. Keturah Fisher Calcium [Mass/Vol] 9.2 mg/dL Normal 8.5-10.1 [facility] Comment on above: Performed By: #### A MY, CMP, LIPA ####[facility] [address] [place], [place] [address]Dr. Keturah Fisher Chloride [Moles/Vol] 107 mmol/L Normal 98-107 [facility] Comment on above: Performed By: #### A MY, CMP, LIPA ####[facility] [address] [place], [place] [address]Dr. Keturah Fisher CO2 [Moles/Vol] 27.9 mmol/L Normal 21.0-32.0 [facility] Comment on above: Performed By: #### A MY, CMP, LIPA ####[facility] [address] [place], [place] [address]Dr. Keturah Fisher Creatinine [Mass/Vol] 0.84 mg/dL Normal 0.55-1.02 [facility] Comment on above: Performed By: #### A MY, CMP, LIPA ####[facility] [address] [place], [place] [address]Dr. Keturah Fisher EGFR-AF GREENLANDIC >60 Normal >=60 [facility] Comment on above: Performed By: #### A MY, CMP, LIPA ####[facility] [address] [place], [place] [address]Dr. Keturah Fisher EGFR-NON AF [place] >60 Normal >=60 [facility] Comment on above: Performed By: #### A MY, CMP, LIPA ####[facility] [address]res[address] [place], [place] [address]Dr. Keturah Fisher Globulin (S) [Mass/Vol] 3.3 g/dL Normal [facility] Comment on above: Performed By: #### A MY, CMP, LIPA ####[facility] [address] [place] [address]Dr. Keturah Fisher Glucose [Mass/Vol] 106 mg/dL Normal 74-106 [facility] Comment on above: Performed By: #### A MY, CMP, LIPA ####[facility] [address] [place] [address]Dr. Keturah Fisher Potassium [Moles/Vol] 4.3 mmol/L Normal 3.5-5.1 [facility] Comment on above: Performed By: #### A MY, CMP, LIPA ####[facility] [address] [place] [address]Dr. Keturah Fisher Protein [Mass/Vol] 6.8 g/dL Normal 6.4-8.2 [facility] Comment on above: Performed By: #### A MY, CMP, LIPA ####[facility] [address] [place] [address]Dr. Keturah Fisher Sodium [Moles/Vol] 142 mmol/L Normal 136-145 [facility] Comment on above: Performed By: #### A MY, CMP, LIPA ####[facility] [address] [place] [address]Dr. Keturah Fisher Urea nitrogen [Mass/Vol] 11.0 mg/dL Normal 7.0-18.0 [facility] Comment on above: Performed By: #### A MY, CMP, LIPA ####[facility] [address] [place] [address]Dr. Keturah Fisher Urea nitrogen/Creatinine [Mass ratio] 13.1 mg/mg Normal [facility] Comment on above: Performed By: #### A MY, CMP, LIPA ####[facility] [address] [place] [address]Dr. Keturah Phillip XR ABD FLAT UP_PA Jorje 08-26 XR [...] Date: 2021-08-26 04:59 Normal [facility] AMYLASEon 08-22-2021 Amylase [Catalytic activity/Vol] 155 U/L Critically high 25-115 [facility] Comment on above: Performed By: #### C MP, NAT, LIPA #### [facility] Laboratory [address] [address] [address] Keturah Fisher CBC AUTO DIFFon 08-22-2021 BASO # 0.1 103/ul Normal 0.0-0.1 [facility] Comment on above: Performed By: #### L IPA, CMP, CRP, NAT #### [facility] Laboratory [address] [address] [address] Keturah Fisher Basophils/100 WBC (Bld) 0.7 % Normal 0.2-2.0 [facility] Comment on above: Performed By: #### L IPA, CMP, CRP, NAT #### [facility] [address] [address] [address] Keturah Fisher EO # 0.1 103/ul Normal 0.0-0.7 [facility] Comment on above: Performed By: #### L IPA, CMP, CRP, ANT #### [facility] [address] [address] [address] Keturah Fisher Eosinophils/100 WBC (Bld) 0.7 % Critically low 0.9-7.0 [facility] Comment on above: Performed By: #### L IPA, CMP, CRP, NAT #### [facility] Laboratory [address] [place] [address] Dr. Keturah Fisher Erythrocyte distribution width (RBC) [Ratio] 13.2 % Normal 11.0-15.0 [facility] Comment on above: Performed By: #### L IPA, CMP, CRP, NAT #### [facility] [address] [place] [address] Dr. Keturah Fisher Hematocrit (Bld) [Volume fraction] 41.1 % Normal 36.0-48.0 [facility] Comment on above: Performed By: #### L IPA, CMP, CRP, NAT #### [facility] [address] [place] [address] Dr. Keturah Fisher Hemoglobin (Bld) [Mass/Vol] 13.8 g/dL Normal 12.0-16.0 [facility] Comment on above: Performed By: #### L IPA, CMP, CRP, NAT #### [facility] [address] [place] [address] Dr. Keturah Fisher IG # 0.03 10e3/ul Normal 0.00-0.03 [facility] Comment on above: Performed By: #### L IPA, CMP, CRP, NAT #### [facility] [address] [place] [address] Dr. Keturah Fisher IG % 0.2 % Normal 0.0-0.5 [facility] Comment on above: Performed By: #### L IPA, CMP, CRP, NAT #### [facility] [address] [place] [address] Dr. Keturah Fisher LYMPH # 2.6 103/ul Normal 1.2-3.8 [facility] Comment on above: Performed By: #### L IPA, CMP, CRP, NAT #### [facility] [address] [place] [address] Dr. Keturah Fisher Lymphocytes/100 WBC (Bld) 21.4 % Normal 20.5-60.0 [facility] Comment on above: Performed By: #### L IPA, CMP, CRP, NAT #### [facility] [address] [place] [address] Dr. Keturah Fisher MANUAL DIFF REQ NO Normal [facility] Comment on above: Performed By: #### L IPA, CMP, CRP, NAT #### [facility] [address] [place] [address] Dr. Keturah Fisher MCH (RBC) [Entitic mass] 32.2 pg Normal 26.7-34.0 [facility] Comment on above: Performed By: #### L IPA, CMP, CRP, NAT #### [facility] [address] [place] [address] Dr. Keturah Fisher MCHC (RBC) [Mass/Vol] 33.6 g/dL Normal 29.9-35.2 [facility] Comment on above: Performed By: #### L IPA, CMP, CRP, NAT #### [facility] [address] [place] [address] Dr. Keturah Fisher MCV (RBC) [Entitic vol] 95.8 fL Normal 81.0-99.0 [facility] Comment on above: Performed By: #### L IPA, CMP, CRP, NAT #### [facility] [address] [place] [address] Dr. Keturah Fisher MONO # 0.9 103/ul Critically high 0.3-0.8 [facility] Comment on above: Performed By: #### L IPA, CMP, CRP, NAT #### [facility] [address] [place] [address] Dr. Keturah Fisher Monocytes/100 WBC (Bld) 7.6 % Normal 1.7-12.0 [facility] Comment on above: Performed By: #### L IPA, CMP, CRP, NAT #### [facility] [address] [place] [address] Dr. Keturah Fisher NEUT # 8.5 103/ul Critically high 1.4-6.5 [facility] Comment on above: Performed By: #### L IPA, CMP, CRP, NAT #### [facility] [address] [place] [address] Dr. Keturah Fisher Neutrophils/100 WBC (Bld) 69.4 % Normal 43.0-75.0 [facility] Comment on above: Performed By: #### L IPA, CMP, CRP, NAT #### [facility] [address] [place] [address] Dr. Keturah Fisher Platelet mean volume (Bld) [Entitic vol] 9.5 fL Normal 9.5-13.5 [facility] Comment on above: Performed By: #### L IPA, CMP, CRP, NAT #### [facility] [address] [place] [address] Dr. Keturah Fisher PLT 261 103/ul Normal 150-450 [facility] Comment on above: Performed By: #### L IPA, CMP, CRP, NAT #### [facility] [address] [place] [address] Dr. Keturah Fisher RBC 4.29 106/ul Normal 4.20-5.40 [facility] Comment on above: Performed By: #### L IPA, CMP, CRP, NAT #### [facility] [address] [place] [address] Dr. Keturah Fisher WBC 12.2 103/ul Critically high 4.0-11.0 [facility] Comment on above: Performed By: #### L IPA, CMP, CRP, NAT #### [facility] [address] [place] [address] Dr. Keturah Fisher LIPASEon 08-22-2021 Lipase [Catalytic activity/Vol] 419.0 U/L Critically high 73.0-393.0 [facility] Comment on above: Performed By: #### C MP, NAT, LIPA #### [facility] [address] [place] [address] Dr. Keturah Fisher PROF 14(COMP METB)on 022 Albumin [Mass/Vol] 3.9 g/dL Normal 3.4-5.0 [facility] Comment on above: Performed By: #### C MP, NAT, LIPA #### [facility] [address] [place] [address] Dr. Keturah Fisher Albumin/Globulin [Mass ratio] 1.2 {ratio} Normal [facility] Comment on above: Performed By: #### C MP, NAT, LIPA #### [facility] [address] [place] [address] Dr. Keturah Fisher ALP [Catalytic activity/Vol] 137 U/L Critically high 46-116 [facility] Comment on above: Performed By: #### C MP, NAT, LIPA #### [facility] [address] [place] [address] Dr. Keturah Fisher ALT [Catalytic activity/Vol] 22 U/L Normal 14-59 [facility] Comment on above: Performed By: #### C MP NAT, LIPA #### [facility] [address] [place] [address] Dr. Keturah Fisher Anion gap [Moles/Vol] 12.9 mmol/L Normal [facility] Comment on above: Performed By: #### C MP NAT, LIPA #### [facility] [address] [place] [address] Dr. Keturah Fisher AST [Catalytic activity/Vol] 20 U/L Normal 15-37 [facility] Comment on above: Performed By: #### C LIZY NAT, LIPA #### [facility] [address] [place] [address] Dr. Keturah Fisher Bilirubin [Mass/Vol] 0.2 mg/dL Normal 0.2-1.0 [facility] Comment on above: Performed By: #### C MP, NAT, LIPA #### [facility] [address] [place] [address] Dr. Keturah Fisher Calcium [Mass/Vol] 9.5 mg/dL Normal 8.5-10.1 [facility] Comment on above: Performed By: #### C MP, NAT, LIPA #### [facility] [address] [place] [address] Dr. Keturah Fisher Chloride [Moles/Vol] 104 mmol/L Normal 98-107 [facility] Comment on above: Performed By: #### C MP, NAT, LIPA #### [facility] [address] [place] [address] Dr. Keturah Fisher CO2 [Moles/Vol] 23.7 mmol/L Normal 21.0-32.0 [facility] Comment on above: Performed By: #### C NAT MEDEL LIPA #### [facility] [address] [address] [address] Keturah Fisher Creatinine [Mass/Vol] 0.85 mg/dL Normal 0.55-1.02 [facility] Comment on above: Performed By: #### C NAT MEDEL, LIPA #### [facility] [address] [address] [address] Keturah Fisher EGFR-AF GREENLANDIC >60 Normal >=60 [facility] Comment on above: Performed By: #### C NAT MEDEL LIPA #### [facility] [address] [address] [address] Keturah Fisher EGFR-NON AF GREENLANDIC >60 Normal >=60 [facility] Comment on above: Performed By: #### C NAT MEDEL LIPA #### [facility] [address] [address] [address] Keturah Fisher Globulin (S) [Mass/Vol] 3.3 g/dL Normal [facility] Comment on above: Performed By: #### C NAT MEDEL LIPA #### [facility] [address] [address] [address] Keturah Fisher Glucose [Mass/Vol] 130 mg/dL Critically high 74-106 [facility] Comment on above: Performed By: #### C NAT MEDEL, LIPA #### [facility] [address] [address] [address] Keturah Fisher Potassium [Moles/Vol] 3.6 mmol/L Normal 3.5-5.1 [facility] Comment on above: Performed By: #### C NAT MEDEL, LIPA #### [facility] [address] [address] [address] Keturah Fisher Protein [Mass/Vol] 7.2 g/dL Normal 6.4-8.2 [facility] Comment on above: Performed By: #### C NAT MEDEL LIPA #### [facility] [address] [place], [place] [address] Dr. Keturah Fisher Sodium [Moles/Vol] 137 mmol/L Normal 136-145 [facility] Comment on above: Performed By: #### C MP, NAT, LIPA #### [facility] [address] [address] [address] Keturah Fisher Urea nitrogen [Mass/Vol] 9.0 mg/dL Normal 7.0-18.0 [facility] Comment on above: Performed By: #### C MP, NAT, LIPA #### [facility] [address] [address] [address] Keturah Fisher Urea nitrogen/Creatinine [Mass ratio] 10.6 mg/mg Normal [facility] Comment on above: Performed By: #### C MP, NTA, LIPA #### [facility] [address] [address] [address] Keturah Fisher XR ABD FLAT UP_PA [...] Date: 2021-08-22 14:54 Normal [facility] CBC AUTO DIFFon 08-13-2021 BASO # 0.1 103/ul Normal 0.0-0.1 [facility] Comment on above: Performed By: #### C BC ####[facility] [address] [place], [place] [address]ZmDr. Keturah Fisher Basophils/100 WBC (Bld) 0.6 % Normal 0.2-2.0 [facility] Comment on above: Performed By: #### C BC ####[facility] [address] [place] [id number]. Keturah Fisher EO # 0.1 103/ul Normal 0.0-0.7 [facility] Comment on above: Performed By: #### C BC ####[facility] [address] [place] [id number]. Keturah Fisher Eosinophils/100 WBC (Bld) 1.1 % Normal 0.9-7.0 [facility] Comment on above: Performed By: #### C BC ####[facility] [address] [place], [place] [address]Dr. Keturah Fisher Erythrocyte distribution width (RBC) [Ratio] 12.6 % Normal 11.0-15.0 [facility] Comment on above: Performed By: #### C BC ####[facility] [address] [place], [place] [address]Dr. Keturah Fisher Hematocrit (Bld) [Volume fraction] 42.3 % Normal 36.0-48.0 [facility] Comment on above: Performed By: #### C BC ####[facility] [address] [place], [place] [address]Dr. Keturah Fisher Hemoglobin (Bld) [Mass/Vol] 14.1 g/dL Normal 12.0-16.0 [facility] Comment on above: Performed By: #### C BC ####[facility] [address] [place], [place] [address]Dr. Keturah Fisher IG # 0.03 10e3/ul Normal 0.00-0.03 [facility] Comment on above: Performed By: #### C BC ####[facility] [address] [place], [place] [address]Dr. Keturah Fisher IG % 0.3 % Normal 0.0-0.5 [facility] Comment on above: Performed By: #### C BC ####[facility] [address] [place], [place] [address]Dr. Keturah Fisher LYMPH # 2.4 103/ul Normal 1.2-3.8 [facility] Comment on above: Performed By: #### C BC ####[facility] [address] [place] [id number]. Keturah Phillip Lymphocytes/100 WBC (Bld) 22.3 % Normal 20.5-60.0 [facility] Comment on above: Performed By: #### C BC ####[facility] [address] [place] [address]Dr. Keturah Fisher MANUAL DIFF REQ NO Normal [facility] Comment on above: Performed By: #### C BC ####[facility] [address] [place] [address]Dr. Elisaeli Fisher MCH (RBC) [Entitic mass] 32.5 pg Normal 26.7-34.0 [facility] Comment on above: Performed By: #### C BC ####[facility] [address] [place], [place] [address]Dr. Elisaeli Fisher MCHC (RBC) [Mass/Vol] 33.3 g/dL Normal 29.9-35.2 [facility] Comment on above: Performed By: #### C BC ####[facility] [address] [place] [id number]. Elisaeli Fisher MCV (RBC) [Entitic vol] 97.5 fL Normal 81.0-99.0 [facility] Comment on above: Performed By: #### C BC ####[facility] [address] [place] [address]Dr. Keturah Fisher MONO # 1.0 103/ul Critically high 0.3-0.8 [facility] Comment on above: Performed By: #### C BC ####[facility] [address] [place] [address]Dr. Keturah Fisher Monocytes/100 WBC (Bld) 8.7 % Normal 1.7-12.0 [facility] Comment on above: Performed By: #### C BC ####[facility] [address] [place], [place] [id number]. Keturah Fisher NEUT # 7.3 103/ul Critically high 1.4-6.5 [facility] Comment on above: Performed By: #### C BC ####[facility] [address] [place] [address]Dr. Keturah Fisher Neutrophils/100 WBC (Bld) 67.0 % Normal 43.0-75.0 [facility] Comment on above: Performed By: #### C BC ####[facility] [address] [place] [id number]. Keturah Fisher Platelet mean volume (Bld) [Entitic vol] 9.5 fL Normal 9.5-13.5 [facility] Comment on above: Performed By: #### C BC ####[facility] [address] [place] [address]Dr. Keturah Fisher PLT 272 103/ul Normal 150-450 [facility] Comment on above: Performed By: #### C BC ####[facility] [address] [place] [address]Dr. Keturah Fisher RBC 4.34 106/ul Normal 4.20-5.40 [facility] Comment on above: Performed By: #### C BC ####[facility] [address] [place] [address]Dr. Keturah Fisher WBC 10.9 103/ul Normal 4.0-11.0 [facility] Comment on above: Performed By: #### C BC ####[facility] [address] [place] [id number]. Keturah Fisher CT ABD/PELV W CONon 08-14-19 [...] Date: 2021-08-13 17:14 Normal [facility] ER URINE PROFILEon 2 Bilirubin Ql (U) Negative Normal NEGATIVE [facility] Comment on above: Performed By: #### C BC #### [facility] Laboratory [address] [place], [place] [address] Dr. Keturah Fisher Clarity (U) CLEAR Normal CLEAR [facility] Comment on above: Performed By: #### C BC #### [facility] [address] [place], [place] [address] Dr. Keturah Fisher Color (U) LT. YELLOW Normal YELLOW [facility] Comment on above: Performed By: #### C BC #### [facility] [address] [address] [address] Keturah BAH A micrscopic examina tion will be performed if indicated. Normal [facility] Comment on above: Performed By: #### C BC #### [facility] Laboratory [address] [place] [address] Dr. Keturah Fisher Glucose Ql (U) Negative Normal NEGATIVE [facility] Comment on above: Performed By: #### C BC #### [facility] [address] [address] [address] Keturah Fisher Hemoglobin Ql (U) Negative Normal NEGATIVE [facility] Comment on above: Performed By: #### C BC #### [facility] [address] [place] [address] Dr. Keturah Fisher Ketones Ql (U) Negative Normal NEGATIVE [facility] Comment on above: Performed By: #### C BC #### [facility] [address] [place] [address] Dr. Keturah Fisher LEUKOCYTES Negative Normal NEGATIVE [facility] Comment on above: Performed By: #### C BC #### [facility] [address] [place] [address] Dr. Keturah Fisher Nitrite Ql (U) Negative Normal NEGATIVE [facility] Comment on above: Performed By: #### C BC #### [facility] [address] [place] [address] Dr. Keturah Fisher pH (U) 5.5 [pH] Normal 5-9 [facility] Comment on above: Performed By: #### C BC #### [facility] [address] [place] [address] Dr. Keturah Fisher SPEC GRAVITY 1.010 Normal 1.005-<=1. 025 [facility] Comment on above: Performed By: #### C BC #### [facility] [address] [place] [address] Dr. Keturah Fisher UA PROTEIN Negative Normal NEGATIVE/ TRACE [facility] Comment on above: Performed By: #### C BC #### [facility] [address] [place] [address] Dr. Keturah Fisher UR MICRO IND NOT INDICATED Normal [facility] Comment on above: Performed By: #### C BC #### [facility] [address] [address] [address] Keturah Fisher Urobilinogen Qn (U) 0.2 {Marizol'U}/dL Normal 0.2 - 1. 0 [facility] Comment on above: Performed By: #### C BC #### [facility] [address] [place] [address] Dr. Keturah Fisher LIPASEon 08-13-2021 Lipase [Catalytic activity/Vol] 217.0 U/L Normal 73.0-393.0 [facility] Comment on above: Performed By: #### C BC #### [facility] [address] [place] [address] Dr. Keturah Fisher PROF 14(COMP METB)on 022 Albumin [Mass/Vol] 3.9 g/dL Normal 3.4-5.0 [facility] Comment on above: Performed By: #### C BC #### [facility] [address] [place] [address] Dr. Keturah Fisher Albumin/Globulin [Mass ratio] 1.1 {ratio} Normal [facility] Comment on above: Performed By: #### C BC #### [facility] [address] [place] [address] Dr. Keturah Fisher ALP [Catalytic activity/Vol] 140 U/L Critically high 46-116 [facility] Comment on above: Performed By: #### C BC #### [facility] [address] [place] [address] Dr. Keturah Fisher ALT [Catalytic activity/Vol] 24 U/L Normal 14-59 [facility] Comment on above: Performed By: #### C BC #### [facility] [address] [place] [address] Dr. Keturah Fisher Anion gap [Moles/Vol] 11.7 mmol/L Normal [facility] Comment on above: Performed By: #### C BC #### [facility] [address] [place] [address] Dr. Keturah Fisher AST [Catalytic activity/Vol] 19 U/L Normal 15-37 [facility] Comment on above: Performed By: #### C BC #### [facility] [address] [place] [address] Dr. Keturah Fisher Bilirubin [Mass/Vol] 0.2 mg/dL Normal 0.2-1.0 [facility] Comment on above: Performed By: #### C BC #### [facility] [address] [place] [address] Dr. Keturah Fisher Calcium [Mass/Vol] 9.9 mg/dL Normal 8.5-10.1 [facility] Comment on above: Performed By: #### C BC #### [facility] [address] [place] [address] Dr. Keturah Fisher Chloride [Moles/Vol] 105 mmol/L Normal 98-107 [facility] Comment on above: Performed By: #### C BC #### [facility] Laboratory [address] [place] [address] Dr. Keturah Fisher CO2 [Moles/Vol] 29.1 mmol/L Normal 21.0-32.0 [facility] Comment on above: Performed By: #### C BC #### [facility] [address] [place] [address] Dr. Keturah Fisher Creatinine [Mass/Vol] 0.81 mg/dL Normal 0.55-1.02 [facility] Comment on above: Performed By: #### C BC #### [facility] [address] [place] [address] Dr. Keturah Fisher EGFR-AF GREENLANDIC >60 Normal >=60 [facility] Comment on above: Performed By: #### C BC #### [facility] [address] [place] [address] Dr. Keturah Fisher EGFR-NON AF GREENLANDIC >60 Normal >=60 [facility] Comment on above: Performed By: #### C BC #### [facility] [address] [place] [address] Dr. Keturah Fisher Globulin (S) [Mass/Vol] 3.4 g/dL Normal [facility] Comment on above: Performed By: #### C BC #### [facility] [address] [address] [address] Keturah Fisher Glucose [Mass/Vol] 87 mg/dL Normal 74-106 [facility] Comment on above: Performed By: #### C BC #### [facility] [address] [address] [address] Keturah Fisher Potassium [Moles/Vol] 3.8 mmol/L Normal 3.5-5.1 [facility] Comment on above: Performed By: #### C BC #### [facility] [address] [address] [address] Keturah Fisher Protein [Mass/Vol] 7.3 g/dL Normal 6.4-8.2 [facility] Comment on above: Performed By: #### C BC #### [facility] [address] [address] [address] Keturah Fisher Sodium [Moles/Vol] 142 mmol/L Normal 136-145 [facility] Comment on above: Performed By: #### C BC #### [facility] [address] [address] [address] Keturah Fisher Urea nitrogen [Mass/Vol] 11.0 mg/dL Normal 7.0-18.0 [facility] Comment on above: Performed By: #### C BC #### [facility] [address] [address] [address] Keturah Fisher Urea nitrogen/Creatinine [Mass ratio] 13.6 mg/mg Normal [facility] Comment on above: Performed By: #### C BC #### [facility] [address] [address] [address] Keturah Fisher Albumin [Mass/volume] in Ser um or PlasmaOrdered By: Keaton Barnard on 08-11-2021 Albumin [Mass/Vol] 3.4 g/dL 3.2-5.5 [facility] Basophils Auto (Bld) [#/Vol] Ordered By: Keaton Barnard on 08-11-2021 Basophils (Bld) [#/Vol] 0.1 10*3/uL 0.0-0.2 [facility] Basophils/100 WBC Auto (Bld) Ordered By: Keaton Barnard on 08-11-2021 Basophils/100 WBC (Bld) 0.9 % . [facility] Bilirubin Test strip Ql (U)O rdered By: Keaton Barnard on 08-11-2021 Bilirubin Ql (U) Negative Negative [facility] Blood hemoglobin measurement (mass/volume)Ordered By: Keaton Barnard on 08-11-2021 Hemoglobin (Bld) [Mass/Vol] 14.1 g/dL 11.8-15.4 [facility] Blood leukocytes automated c ount (number/volume)Ordered By: Keaton Barnard on 08-11-2021 WBC (Bld) [#/Vol] 9.7 10*3/uL 4.5-11.0 [facility] Color Auto (U)Ordered By: Luis Barnard on 08-11-2021 Color (U) Yellow Yellow [facility] Creatinine and Glomerular fi ltration rate.predicted panel (S/P/Bld)Ordered By: Keaton Barnard on 08-11-2021 Creatinine [Mass/Vol] 0.95 mg/dL 0.44-1.03 [facility] Direct bilirubin measurement Ordered By: Keaton Barnard on 08-11-2021 Bilirubin.direct [Mass/Vol] mg/dL 0.0-0.4 [facility] Eosinophils Auto (Bld) [#/Vo l]Ordered By: Keaton Barnard on 08-11-2021 Eosinophils (Bld) [#/Vol] 0.1 10*3/uL 0.0-0.45 [facility] Eosinophils/100 WBC Auto (Bl d)Ordered By: Keaton Barnard on 08-11-2021 Eosinophils/100 WBC (Bld) 1.3 % . [facility] Erythrocyte distribution wid th Auto (RBC) [Ratio]Ordered By: Keaton Barnard on 08-11-2021 Erythrocyte distribution width (RBC) [Ratio] 13.2 % 11.9-15.3 [facility] Estimated glomerular filtrat ion rate (GFR) non- AmericanOrdered By: Keaton Barnard on 08-11-2021 GFR/1.73 sq M.predicted among non-blacks MDRD (S/P/Bld) [Vol rate/Area] > 60 mL/Min [facility] Globulin Calc (S) [Mass/Vol] Ordered By: Keaton Barnard on 08-11-2021 Globulin (S) [Mass/Vol] 2.6 g/dL [facility] Hematocrit Auto (Bld) [Volum e fraction]Ordered By: Keaton Barnard on 08-11-2021 Hematocrit (Bld) [Volume fraction] 42.1 % 34.0-46.4 [facility] Ketones Auto test strip (U) [Mass/Vol]Ordered By: Keaton Barnard on 08-11-2021 Ketones (U) [Mass/Vol] Negative [facility] - Chemistry and C hemistry - challengeOrdered By: Keaton Barnard on 08-11-2021 Lipase [Catalytic activity/Vol] 89.0 U/L 22-51 [facility] Laboratory - CoagulationOrde red By: Keaton Barnard on 08-11-2021 PT Coag (PPP) [Time] 12.5 s 9.0-12.9 [facility] [place] Laboratory - Hematology and Cell countsOrdered By: Keaton Barnard on 08-11-2021 Nucleated RBC/100 WBC (Bld) [Ratio] 0.1 % 0-0.5 [facility] Lymphocytes Auto (Bld) [#/Vo l]Ordered By: Keaton Barnard on 08-11-2021 Lymphocytes (Bld) [#/Vol] 2.5 10*3/uL 1.00-4.8 [facility] Lymphocytes/100 WBC Auto (Bl d)Ordered By: Keaton Barnard on 08-11-2021 Lymphocytes/100 WBC (Bld) 25.8 % . [facility] MCH Auto (RBC) [Entitic mass ]Ordered By: Keaton Barnard on 08-11-2021 MCH (RBC) [Entitic mass] 32.4 pg 24.7-34.3 [facility] MCHC Auto (RBC) [Mass/Vol]Or dered By: Keaton Barnard on 08-11-2021 MCHC (RBC) [Mass/Vol] 33.4 g/dL 32.0-35.0 [facility] MCV Auto (RBC) [Entitic vol] Ordered By: Keaton Barnard on 08-11-2021 MCV (RBC) [Entitic vol] 96.8 fL 80-100 [facility] Monocytes Auto (Bld) [#/Vol] Ordered By: Keaton Barnard on 08-11-2021 Monocytes (Bld) [#/Vol] 0.8 10*3/uL 0.0-0.8 [facility] Monocytes/100 WBC Auto (Bld) Ordered By: Keaton Barnrad on 08-11-2021 Monocytes/100 WBC (Bld) 8.7 % . [facility] Neutrophils Auto (Bld) [#/Vo l]Ordered By: Keaton Barnard on 08-11-2021 Neutrophils (Bld) [#/Vol] 6.1 10*3/uL 1.8-7.7 [facility] Neutrophils/100 WBC Auto (Bl d)Ordered By: Keaton Barnard on 08-11-2021 Neutrophils/100 WBC (Bld) 63.3 % . [facility] Nitrite Test strip Ql (U)Ord ered By: Keaton Barnard on 08-11-2021 Nitrite Ql (U) Negative Negative [facility] No Panel InformationOrdered By: Keaton Barnard on 08-11-2021 Estimated GFR () > 60 mL/Min [facility] Comment on above: GFR estimated refere nce range: According to KDOQI guidelines, <60 ml/min/1.73m2 is sufficient to diagnose a patient with chronic kidney disease. Pharmacy Creatinine Clearance (Chem 62.33 [facility] Platelet mean volume Auto (B ld) [Entitic vol]Ordered By: Keaton Barnard on 08-11-2021 Platelet mean volume (Bld) [Entitic vol] 8.0 fL 6.3-10.7 [facility] Platelet poor plasma interna tional normalized ratio (INR) by coagulation assay (relatOrdered By: Keaton Barnard on 08-11-2021 INR Coag (PPP) [Relative time] 1.1 {INR} [facility] Comment on above: INR Therapeutic Rang [...] 08-11-2021 Platelets (Bld) [#/Vol] 252 10*3/uL 150-450 [facility] Protein Auto test strip (U) [Mass/Vol]Ordered By: Keaton Barnard on 08-11-2021 Protein (U) [Mass/Vol] Negative Negative [facility] Protein [Mass/volume] in Ser um or PlasmaOrdered By: Keaton Barnard on 08-11-2021 Protein [Mass/Vol] 6.0 g/dL 6.1-7.9 [facility] RBC Auto (Bld) [#/Vol]Ordere d By: Keaton Barnard on 08-11-2021 RBC (Bld) [#/Vol] 4.35 10*6/uL 3.60-5.00 [facility] Serum or plasma alanine hughes otransferase measurement without P-5'-P (enzymatic activiOrdered By: Keaton Barnard on 08-11-2021 ALT No additional P-5'-P [Catalytic activity/Vol] 12 U/L 10-60 [facility] Serum or plasma albumin/glob ulin mass ratioOrdered By: Keaton Barnard on 08-11-2021 Albumin/Globulin [Mass ratio] 1.3 {ratio} [facility] Serum or plasma alkaline jaqueline sphatase measurement (enzymatic activity/volume)Ordered By: Keaton Barnard on 08-11-2021 ALP [Catalytic activity/Vol] 98 U/L 32-92 [facility] Serum or plasma aspartate am inotransferase measurement (enzymatic activity/volume)Ordered By: Keaton Barnard on 08-11-2021 AST [Catalytic activity/Vol] 17 U/L 10-42 [facility] Serum or plasma calcium priscilla urement (mass/volume)Ordered By: Keaton Barnard on 08-11-2021 Calcium [Mass/Vol] 9.3 mg/dL 8.2-10.2 [facility] Serum or plasma chloride daron surement (moles/volume)Ordered By: Keaton Barnard on 08-11-2021 Chloride [Moles/Vol] 104 mmol/L 95-114 [facility] Serum or plasma glucose priscilla urement (mass/volume)Ordered By: Keaton Barnard on 08-11-2021 Glucose [Mass/Vol] 95 mg/dL 70-100 [facility] Comment on above: ADA recommended refe rence range Random Glucose Reference Range is dependent on time and content of last meal. Glucose of more than 200 mg/dL in a nonstressed, ambulatory subject supports the diagnosis of Diabetes Mellitus. Serum or plasma non-glucuron idated bilirubin measurement (mass/volume)Ordered By: Keaton Barnard on 08-11-2021 Bilirubin.indirect [Mass/Vol] TNP [facility] Comment on above: Test not performed Serum or plasma potassium me asurement (moles/volume)Ordered By: Keaton Barnard on 08-11-2021 Potassium [Moles/Vol] 3.8 mmol/L 3.5-5.1 [facility] Serum or plasma sodium measu rement (moles/volume)Ordered By: Keaton Barnard on 08-11-2021 Sodium [Moles/Vol] 138 mmol/L 136-146 [facility] Serum or plasma total biliru bin measurement (mass/volume)Ordered By: Keaton Barnard on 08-11-2021 Bilirubin [Mass/Vol] 0.3 mg/dL 0.3-1.2 [facility] Serum or plasma total carbon dioxide measurement (moles/volume)Ordered By: Keaton Barnard on 08-11-2021 CO2 [Moles/Vol] 24.8 mmol/L 22.0-30.0 [facility] Serum or plasma urea nitroge n measurement (mass/volume)Ordered By: Keaton Barnard on 08-11-2021 Urea nitrogen [Mass/Vol] 10 mg/dL 11-29 [facility] Specific gravity Auto test s trip (U) [Rel density]Ordered By: Keaton Barnard on 08-11-2021 Specific gravity (U) [Rel density] 1.028 1.001-1.03 0 [facility] Troponin I.cardiac [Mass/vol ume] in Serum or Plasma by High sensitivity methodOrdered By: Keaton Barnard on 08-11-2021 Troponin I.cardiac High sensitivity method [Mass/Vol] 3 pg/mL 0-15 [facility] Urine clarity by refractomet ry automatedOrdered By: Keaton Barnard on 08-11-2021 Clarity Refractometry automated (U) Clear Clear [facility] Urine glucose measurement by automated test strip (mass/volume)Ordered By: Keaton Barnard on 08-11-2021 Glucose Auto test strip (U) [Mass/Vol] Normal mg/dL Normal [facility] Urine hemoglobin detection b y automated test stripOrdered By: Keaton Barnard on 08-11-2021 Hemoglobin Auto test strip Ql (U) Negative Negative [facility] Urine leukocyte esterase det ection by automated test stripOrdered By: Keaton Barnard on 08-11-2021 Leukocyte esterase Auto test strip Ql (U) Negative Negative [facility] Urobilinogen Auto test strip (U) [Mass/Vol]Ordered By: Keaton Barnard on 08-11-2021 Urobilinogen (U) [Mass/Vol] Normal mg/dL Normal [facility] pH Auto test strip (U)Ordere d By: Keaton Barnard on 08-11-2021 pH (U) 5.0 [pH] 5.0-9.0 [facility] AMYLASEon 07-31-2021 Amylase [Catalytic activity/Vol] 158 U/L Critically high 25-115 [facility] Comment on above: Performed By: #### L IPA, CMP, CRP, NAT #### [facility] [address] [address] [address] Keturah Fisher CBC AUTO DIFFon 07-31-2021 BASO # 0.1 103/ul Normal 0.0-0.1 [facility] Comment on above: Performed By: #### C BC ####[facility] [address] [place], [place] [address]DuDr. Keturah Fisher Basophils/100 WBC (Bld) 0.7 % Normal 0.2-2.0 [facility] Comment on above: Performed By: #### C BC ####[facility] [address] [address]Dr. Keturah Fisher EO # 0.1 103/ul Normal 0.0-0.7 [facility] Comment on above: Performed By: #### C BC ####[facility] [address] [place], [place] [address]Dr. Keturah Fisher Eosinophils/100 WBC (Bld) 0.9 % Normal 0.9-7.0 [facility] Comment on above: Performed By: #### C BC ####[facility] [address] [place], [place] [address]Dr. Keturah Fisher Erythrocyte distribution width (RBC) [Ratio] 12.7 % Normal 11.0-15.0 [facility] Comment on above: Performed By: #### C BC ####[facility] [address] [place], [place] [address]Dr. Keturah Fisher Hematocrit (Bld) [Volume fraction] 43.2 % Normal 36.0-48.0 [facility] Comment on above: Performed By: #### C BC ####[facility] [address] [place], [place] [address]Dr. Keturah Fisher Hemoglobin (Bld) [Mass/Vol] 14.5 g/dL Normal 12.0-16.0 [facility] Comment on above: Performed By: #### C BC ####[facility] [address] [place], [place] [address]Dr. Keturah Fisher IG # 0.04 10e3/ul Critically high 0.00-0.03 [facility] Comment on above: Performed By: #### C BC ####[facility] [address] [place], [place] [address]Dr. Keturah Fisher IG % 0.4 % Normal 0.0-0.5 [facility] Comment on above: Performed By: #### C BC ####[facility] [address] [place], [place] [address]Dr. Elisaeli Fisher LYMPH # 2.8 103/ul Normal 1.2-3.8 [facility] Comment on above: Performed By: #### C BC ####[facility] [address] [address]Dr. Elisaeli Fisher Lymphocytes/100 WBC (Bld) 24.9 % Normal 20.5-60.0 [facility] Comment on above: Performed By: #### C BC ####[facility] [address] [address]Dr. Elisaeli Fisher MANUAL DIFF REQ NO Normal [facility] Comment on above: Performed By: #### C BC ####[facility] [address] [address]Dr. Keturah Phillip MCH (RBC) [Entitic mass] 32.7 pg Normal 26.7-34.0 [facility] Comment on above: Performed By: #### C BC ####[facility] [address] [place], [place] [address]Dr. Keturah Fisher MCHC (RBC) [Mass/Vol] 33.6 g/dL Normal 29.9-35.2 [facility] Comment on above: Performed By: #### C BC ####[facility] [address] [place], [place] [address]Dr. Elisaeli Fisher MCV (RBC) [Entitic vol] 97.5 fL Normal 81.0-99.0 [facility] Comment on above: Performed By: #### C BC ####[facility] [address] [place], [place] [address]Dr. Keturah Fisher MONO # 0.9 103/ul Critically high 0.3-0.8 [facility] Comment on above: Performed By: #### C BC ####[facility] [address] [place], [place] [address]Dr. Keturah Fisher Monocytes/100 WBC (Bld) 8.1 % Normal 1.7-12.0 [facility] Comment on above: Performed By: #### C BC ####[facility] [address] [place], [place] [address]Dr. Keturah Fisher NEUT # 7.3 103/ul Critically high 1.4-6.5 [facility] Comment on above: Performed By: #### C BC ####[facility] [address] [id number]. Keturah Fisher Neutrophils/100 WBC (Bld) 65.0 % Normal 43.0-75.0 [facility] Comment on above: Performed By: #### C BC ####[facility] [address] [id number]. Keturah Fisher Platelet mean volume (Bld) [Entitic vol] 10.0 fL Normal 9.5-13.5 [facility] Comment on above: Performed By: #### C BC ####[facility] [address] [id number]. Keturah Fisher PLT 245 103/ul Normal 150-450 [facility] Comment on above: Performed By: #### C BC ####[facility] [address] [address]Dr. Keturah Fisher RBC 4.43 106/ul Normal 4.20-5.40 [facility] Comment on above: Performed By: #### C BC ####[facility] [address] [id number]. Keturah Fisher WBC 11.2 103/ul Critically high 4.0-11.0 [facility] Comment on above: Performed By: #### C BC ####[facility] [address] [id number] Fisher LIPASEon 07-31-2021 Lipase [Catalytic activity/Vol] 439.0 U/L Critically high 73.0-393.0 [facility] Comment on above: Performed By: #### L IPA, CMP, CRP, NAT #### [facility] [address] [address] [address] Keturah Fisher PROF 14(COMP METB)on 022 Albumin [Mass/Vol] 3.6 g/dL Normal 3.4-5.0 [facility] Comment on above: Performed By: #### L IPA, CMP, CRP, NAT #### [facility] [address] [address] [address] Keturah Fisher Albumin/Globulin [Mass ratio] 1.1 {ratio} Normal [facility] Comment on above: Performed By: #### L IPA, CMP, CRP, NAT #### [facility] [address] [address] [address] Keturah Fisher ALP [Catalytic activity/Vol] 119 U/L Critically high 46-116 [facility] Comment on above: Performed By: #### L IPA, CMP, CRP, NAT #### [facility] [address] [place] [address] Dr. Keturah Fisher ALT [Catalytic activity/Vol] 20 U/L Normal 14-59 [facility] Comment on above: Performed By: #### L IPA, CMP, CRP, NAT #### [facility] [address] [place] [address] Dr. Keturah Fisher Anion gap [Moles/Vol] 13.4 mmol/L Normal [facility] Comment on above: Performed By: #### L IPA, CMP, CRP, NAT #### [facility] [address] [place] [address] Dr. Keturah Fisher AST [Catalytic activity/Vol] 16 U/L Normal 15-37 [facility] Comment on above: Performed By: #### L IPA, CMP, CRP, NAT #### [facility] [address] [place] [address] Dr. Keturah Fisher Bilirubin [Mass/Vol] 0.1 mg/dL Critically low 0.2-1.0 [facility] Comment on above: Performed By: #### L IPA, CMP, CRP, NAT #### [facility] [address] [place] [address] Dr. Keturah Fisher Calcium [Mass/Vol] 8.9 mg/dL Normal 8.5-10.1 [facility] Comment on above: Performed By: #### L IPA, CMP, CRP, NAT #### [facility] [address] [place] [address] Dr. Keturah Fisher Chloride [Moles/Vol] 106 mmol/L Normal 98-107 [facility] Comment on above: Performed By: #### L IPA, CMP, CRP, NAT #### [facility] [address] [place] [address] Dr. Keturah Fisher CO2 [Moles/Vol] 25.4 mmol/L Normal 21.0-32.0 [facility] Comment on above: Performed By: #### L IPA, CMP, CRP, NAT #### [facility] [address] [address] [address] Keturah Fisher Creatinine [Mass/Vol] 0.73 mg/dL Normal 0.55-1.02 [facility] Comment on above: Performed By: #### L IPA, CMP, CRP, NAT #### [facility] [address] [address] [address] Keturah Fisher EGFR-AF GREENLANDIC >60 Normal >=60 [facility] Comment on above: Performed By: #### L IPA, CMP, CRP, NAT #### [facility] [address] [address] [address] Keturah Fisher EGFR-NON AF GREENLANDIC >60 Normal >=60 [facility] Comment on above: Performed By: #### L IPA, CMP, CRP, NAT #### [facility] [address] [address] [address] Keturah Fisher Globulin (S) [Mass/Vol] 3.2 g/dL Normal [facility] Comment on above: Performed By: #### L IPA, CMP, CRP, NAT #### [facility] [address] [address] [address] Keturah Fisher Glucose [Mass/Vol] 105 mg/dL Normal 74-106 [facility] Comment on above: Performed By: #### L IPA, CMP, CRP, NAT #### [facility] [address] [address] [address] Keturah Fisher Potassium [Moles/Vol] 3.8 mmol/L Normal 3.5-5.1 [facility] Comment on above: Performed By: #### L IPA, CMP, CRP, NAT #### [facility] [address] [address] [address] Keturah Fisher Protein [Mass/Vol] 6.8 g/dL Normal 6.4-8.2 [facility] Comment on above: Performed By: #### L IPA, CMP, CRP, NAT #### [facility] [address] [address] [address] Keturah Fisher Sodium [Moles/Vol] 141 mmol/L Normal 136-145 [facility] Comment on above: Performed By: #### L IPA, CMP, CRP, NAT #### [facility] [address] [address] [address] Keturah Fisher Urea nitrogen [Mass/Vol] 12.0 mg/dL Normal 7.0-18.0 [facility] Comment on above: Performed By: #### L IPA, CMP, CRP, NAT #### [facility] [address] [address] [address] Keturah Fisher Urea nitrogen/Creatinine [Mass ratio] 16.4 mg/mg Normal [facility] Comment on above: Performed By: #### L IPA, CMP, CRP, NAT #### [facility] [address] [place] [address] Dr. Keturah Fisher TROPONIN, HIGH SENSITIVITYon 07-31-2021 HSTROP 4.2 pg/mL Normal 4.0-51.3 [facility] Comment on above: Result Comment: CUT- OFF POINTS HAVE BEEN ESTABLISHED BASED ON THE FOURTH UNIVERSAL DEFINITIONS OF MYOCARDIAL INFARCTION. THE UPPER REFERENCE LIMIT (URL) OF TROPONIN, DEFINED THE 99TH PERCENTILE OF cTnI DISTRIBUTION IN A REFERENCE POPULATION, HAS BEEN CONFIRMED THE DECISION THRESHOLD FOR VA DIAGNOSIS. Performed By: #### L IPA, CMP, CRP, NAT #### [facility] [address] [place] [address] Dr. Keturah Fisher AMYLASEon 07-19-2021 Amylase [Catalytic activity/Vol] 198 U/L Critically high 25-115 [facility] Comment on above: Performed By: #### A MY, LIPA, CMP ####[facility] [address] [place] [address]Dr. Keturah Fisher CBC AUTO DIFFon 07-19-2021 BASO # 0.1 103/ul Normal 0.0-0.1 [facility] Comment on above: Performed By: #### C BC ####[facility] [address] [place] [address]Dr. Keturah Fisher Basophils/100 WBC (Bld) 0.7 % Normal 0.2-2.0 [facility] Comment on above: Performed By: #### C BC ####[facility] Ruc[address] [place], [place] [address]Dr. Keturah Fisher EO # 0.1 103/ul Normal 0.0-0.7 [facility] Comment on above: Performed By: #### C BC ####[facility] U[address]iguz[address] [place], [place] [address]Dr. Keturah Fisher Eosinophils/100 WBC (Bld) 1.0 % Normal 0.9-7.0 [facility] Comment on above: Performed By: #### C BC ####[facility] J[address] [place], [place] [address]Dr. Keturah Fisher Erythrocyte distribution width (RBC) [Ratio] 12.5 % Normal 11.0-15.0 [facility] Comment on above: Performed By: #### C BC ####[facility] E[address]bi[address]ix[address] [place], [place] [address]Dr. Keturah Fisher Hematocrit (Bld) [Volume fraction] 42.4 % Normal 36.0-48.0 [facility] Comment on above: Performed By: #### C BC ####[facility] [address] [place], [place] [address]Dr. Keturah Fisher Hemoglobin (Bld) [Mass/Vol] 14.2 g/dL Normal 12.0-16.0 [facility] Comment on above: Performed By: #### C BC ####[facility] W[address]pos[address] [place], [place] [address]Dr. Keturah Fisher IG # 0.03 10e3/ul Normal 0.00-0.03 [facility] Comment on above: Performed By: #### C BC ####[facility] [address] [place], [place] [address]Dr. Keturah Fisher IG % 0.3 % Normal 0.0-0.5 [facility] Comment on above: Performed By: #### C BC ####[facility] [address] [place] [address]Dr. Keturah Phillip LYMPH # 3.0 103/ul Normal 1.2-3.8 [facility] Comment on above: Performed By: #### C BC ####[facility] [address] [place] [id number]. Elisaeli Fisher Lymphocytes/100 WBC (Bld) 29.5 % Normal 20.5-60.0 [facility] Comment on above: Performed By: #### C BC ####[facility] [address] [place] [address]Dr. Elisaeli Fisher MANUAL DIFF REQ NO Normal [facility] Comment on above: Performed By: #### C BC ####[facility] [address] [place] [address]Dr. Keturah Phillip MCH (RBC) [Entitic mass] 32.8 pg Normal 26.7-34.0 [facility] Comment on above: Performed By: #### C BC ####[facility] Ex[address] [place], [place] [address]Dr. Keturah Phillip MCHC (RBC) [Mass/Vol] 33.5 g/dL Normal 29.9-35.2 [facility] Comment on above: Performed By: #### C BC ####[facility] [address] [place] [address]Dr. Elisaeli Fisher MCV (RBC) [Entitic vol] 97.9 fL Normal 81.0-99.0 [facility] Comment on above: Performed By: #### C BC ####[facility] [address] [place] [address]Dr. Elisaeli Fisher MONO # 1.0 103/ul Critically high 0.3-0.8 [facility] Comment on above: Performed By: #### C BC ####[facility] [address] [place] [address]Dr. Keturah Fisher Monocytes/100 WBC (Bld) 9.3 % Normal 1.7-12.0 [facility] Comment on above: Performed By: #### C BC ####[facility] [address] [place] [id number]. Keturah Fisher NEUT # 6.1 103/ul Normal 1.4-6.5 [facility] Comment on above: Performed By: #### C BC ####[facility] [address]cs[address] [place] [address]Dr. Keturah Fisher Neutrophils/100 WBC (Bld) 59.2 % Normal 43.0-75.0 [facility] Comment on above: Performed By: #### C BC ####[facility] [address] [place] [address]Dr. Keturah Fisher Platelet mean volume (Bld) [Entitic vol] 9.8 fL Normal 9.5-13.5 [facility] Comment on above: Performed By: #### C BC ####[facility] [address] [place] [address]Dr. Keturah Fisher PLT 249 103/ul Normal 150-450 [facility] Comment on above: Performed By: #### C BC ####[facility] T[address] [place] [address]Dr. Keturah Fisher RBC 4.33 106/ul Normal 4.20-5.40 [facility] Comment on above: Performed By: #### C BC ####[facility] [address] [place] [address]Dr. Keturah Fisher WBC 10.2 103/ul Normal 4.0-11.0 [facility] Comment on above: Performed By: #### C BC ####[facility] [address] [place] [address]Dr. Keturah Fisher LIPASEon 07-19-2021 Lipase [Catalytic activity/Vol] 554.0 U/L Critically high 73.0-393.0 [facility] Comment on above: Performed By: #### A MY, LIPA, CMP ####[facility] [address] [place] [address]Dr. Keturah Fisher PROF 14(COMP METB)on Albumin [Mass/Vol] 4.0 g/dL Normal 3.4-5.0 [facility] Comment on above: Performed By: #### A MY, LIPA, CMP ####[facility] [address] [place] [address]Dr. Keturah Fisher Albumin/Globulin [Mass ratio] 1.1 {ratio} Normal [facility] Comment on above: Performed By: #### A MY, LIPA, CMP ####[facility] [address] [place] [address]Dr. Keturah Fisher ALP [Catalytic activity/Vol] 141 U/L Critically high 46-116 [facility] Comment on above: Performed By: #### A MY, LIPA, CMP ####[facility] Rh[address] [place], [place] [address]Dr. Keturah Fisher ALT [Catalytic activity/Vol] 21 U/L Normal 14-59 [facility] Comment on above: Performed By: #### A MY, LIPA, CMP ####[facility] Lmisewhimt[address] [place], [place] [address]Dr. Keturah Fisher Anion gap [Moles/Vol] 10.3 mmol/L Normal [facility] Comment on above: Performed By: #### A MY, LIPA, CMP ####[facility] Angwwzjfks[address] [place], [place] [address]Dr. Keturah Fisher AST [Catalytic activity/Vol] 22 U/L Normal 15-37 [facility] Comment on above: Performed By: #### A MY, LIPA, CMP ####[facility] Brpff[address] [place], [place] [address]Dr. Keturah Fisher Bilirubin [Mass/Vol] 0.3 mg/dL Normal 0.2-1.0 [facility] Comment on above: Performed By: #### A MY, LIPA, CMP ####[facility] Wyungiubfi[address] [place], [place] [address]Dr. Keturah Fisher Calcium [Mass/Vol] 9.9 mg/dL Normal 8.5-10.1 [facility] Comment on above: Performed By: #### A MY, LIPA, CMP ####[facility] Cigan[address]anyi[address] [place], [place] [address]Dr. Keturah Fisher Chloride [Moles/Vol] 103 mmol/L Normal 98-107 [facility] Comment on above: Performed By: #### A ROB BERNSTEIN, CMP ####[facility] [address] [place] [address]Dr. Keturah Fisher CO2 [Moles/Vol] 27.6 mmol/L Normal 21.0-32.0 [facility] Comment on above: Performed By: #### A ROB BERNSTEIN, CMP ####[facility] [address] [place] [address]Dr. Keturah Fisher Creatinine [Mass/Vol] 0.93 mg/dL Normal 0.55-1.02 [facility] Comment on above: Performed By: #### A ROB BERNSTEIN, CMP ####[facility] Qjn[address] [place], [place] [address]Dr. Keturah Fisher EGFR-AF GREENLANDIC >60 Normal >=60 [facility] Comment on above: Performed By: #### A ROB BERNSTEIN, CMP ####[facility] I[address] [place], [place] [address]Dr. Keturah Fisher EGFR-NON AF [place]LAND[place] >60 Normal >=60 [facility] Comment on above: Performed By: #### A ROB BERNSTEIN, CMP ####[facility] [address] [place] [address]Dr. Keturah Fisher Globulin (S) [Mass/Vol] 3.5 g/dL Normal [facility] Comment on above: Performed By: #### A ROB BERNSTEIN, CMP ####[facility] [address] [place] [address]Dr. Keturah Fisher Glucose [Mass/Vol] 99 mg/dL Normal 74-106 [facility] Comment on above: Performed By: #### A ROB BERNSTEIN, CMP ####[facility] [address] [place], [place] [address]Dr. Keturah Fisher Potassium [Moles/Vol] 3.9 mmol/L Normal 3.5-5.1 [facility] Comment on above: Performed By: #### A ROB BERNSTEIN, CMP ####[facility] [address] [place], [place] [address]Wx. Keturah Fisher Protein [Mass/Vol] 7.5 g/dL Normal 6.4-8.2 [facility] Comment on above: Performed By: #### A AMANDEEP LIPA, CMP ####[facility] [address] [place], [place] [address]Be. Keturah Fisher Sodium [Moles/Vol] 137 mmol/L Normal 136-145 [facility] Comment on above: Performed By: #### A AMANDEEP LIPA, CMP ####[facility] [address] [place] [id number]. Keturah Fisher Urea nitrogen [Mass/Vol] 9.0 mg/dL Normal 7.0-18.0 [facility] Comment on above: Performed By: #### A AMANDEEP LIPA, CMP ####[facility] [address] [place] [address]Dr. Keturah Fisher Urea nitrogen/Creatinine [Mass ratio] 9.7 mg/mg Normal [facility] Comment on above: Performed By: #### A AMANDEEP LIPA, CMP ####[facility] [address] [place] [address]Dr. Keturah Fisher XR ABD FLAT UP_PA Jorje [...] by: LYNNE PERDOMO Date: 2021-07-19 16:57 Normal [facility] COVID Quick Testingon 2021 Result Positive [employer] Other ANES Marcial 11-13-2020 ANES POST HNO ID: [id number] Author: Ion Avila MD Service: Anesthesiology Author [...] 13, 2020 TIME: 12:38 PM PAGER/CONTACT #: [id number] [facility] NURSING PROGon 11-13-2020 NURSING PROG HNO ID: [id number] Author: Viky Nguyen RN Service: Nursing Author [...] None Electronically Signed By: Yaquelin Nguyen RN [facility] NURSING PROG HNO ID: [id number] Author: Landy Smith RN Service: Nursing Author [...] By: Landy Smith RN In Department: [facility] CNPN Telephone (GASTRI) ----- CHIOMA RAINEY ([id number]) 1970 F Date Time Provider Department 11/07/20 [facility]OR[facility] During your visit today, we recorded the [...] have family/friend present for procedure? 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 Any barriers to Patient learning: Patient/Patient Health Psychologist responded appropriately on phone. Type of instruction [...] Status:Closed by NASREEN GORMAN on 11/07/20 [facility] 03-26-2020 Amylase [Catalytic activity/Vol] 185 U/L High 28 - 100 U/L [facility], [place] CBC Auto Differentialon 03-09 Basophils (Bld) [#/Vol] 0.06 10*3/uL [place] Basophils/100 WBC (Bld) 1 % 0 - 2 % [place] Differential Type NOT REPORTED [place] Eosinophils (Bld) [#/Vol] 0.12 10*3/uL [place] Eosinophils/100 WBC (Bld) 1 % 1 - 4 % [place] Erythrocyte distribution width (RBC) [Ratio] 12.4 % 11.8 - 14.4 % [place] Hematocrit (Bld) [Volume fraction] 40.6 % 36.3 - 47.1 % [place] Hemoglobin (Bld) [Mass/Vol] 13.7 g/dL 11.9 - 15.1 g/dL [place] Immature granulocytes (Bld) [#/Vol] 0 % 0 [place] Immature granulocytes (Bld) [#/Vol] 10*3/uL [place] Lymphocytes (Bld) [#/Vol] 2.62 10*3/uL [place] Lymphocytes/100 WBC (Bld) 27 % 24 - 43 % [place] MCH (RBC) [Entitic mass] 33.4 pg 25.2 - 33.5 pg [place] MCHC (RBC) [Mass/Vol] 33.7 g/dL 28.4 - 34.8 g/dL [place] MCV (RBC) [Entitic vol] 99.0 fL 82.6 - 102.9 fL [place] Monocytes (Bld) [#/Vol] 0.78 10*3/uL [place] Monocytes/100 WBC (Bld) 8 % 3 - 12 % [place] Platelet mean volume (Bld) [Entitic vol] 9.4 fL 8.1 - 13.5 fL [place] Platelets (Bld) [#/Vol] 235 10*3/uL [place] Platelets (Bld) [#/Vol] NOT REPORTED [place] RBC (Bld) [#/Vol] 4.10 10*6/uL 3.95 - 5.11 m/uL [place] RBC morphology finding Nom (Bld) NOT REPORTED [place] Segmented neutrophils/100 WBC (Bld) 63 % 36 - 65 % [place] Segs Absolute 5.96 [place] WBC (Bld) [#/Vol] 9.6 10*3/uL [place] WBC (Bld) [#/Vol] 0.0 10*3/uL 0.0 per 100 WBC [place] WBC Morphology NOT REPORTED [place] Comprehensive Metabolic Pane l w/ Reflex to MGon 03-26-2020 Albumin [Mass/Vol] 4.3 g/dL 3.5 - 5.2 g/dL [place] Albumin/Globulin [Mass ratio] 1.7 {ratio} [place] ALP [Catalytic activity/Vol] 117 U/L High 35 - 104 U/L [place] ALT [Catalytic activity/Vol] 11 U/L 5 - 33 U/L [place] Anion gap [Moles/Vol] 9 mmol/L 9 - 17 mmol/L [place] AST [Catalytic activity/Vol] 18 U/L <32 [place] Bilirubin Ql (U) 0.15 mg/dL Low 0.3 - 1.2 mg/dL [place] Bun/Cre Ratio 12 [place] Calcium [Mass/Vol] 9.7 mg/dL 8.6 - 10. 4 mg/dL [place] Chloride [Moles/Vol] 102 mmol/L 98 - 10 7 mmol/L [place] CO2 [Moles/Vol] 25 mmol/L 20 - 31 mmol/L [place] Creatinine [Mass/Vol] 0.74 mg/dL 0.5 - 0.9 mg/dL [place] GFR >60 >60 mL/min [place] GFR Non- >60 >60 mL/min [place] Glucose [Mass/Vol] 94 mg/dL 70 - 99 mg/dL [place] Potassium [Moles/Vol] 4.2 mmol/L 3.7 - 5.3 mmol/L [place] Protein [Mass/Vol] 6.8 g/dL 6.4 - 8.3 g/dL [place] Sodium [Moles/Vol] 136 mmol/L 135 - 144 mmol/L [place] Urea nitrogen [Mass/Vol] 9 mg/dL 6 - 20 mg/dL [place] Lactic Acidon 03-26-2020 Lactate [Moles/Vol] 1.3 mmol/L 0.5 - 2. 2 mmol/L [place] Lipaseon 03-26-2020 Interpretation and review of laboratory results Abnormal [place] Lipase [Catalytic activity/Vol] 225 U/L Critically high 13 - 60 U/L [place] Metabolic Panelon 03-26-2020 GFR/1.73 sq M predicted among non-blacks MDRD (S/P/Bld) [Vol rate/Area] [place] Comment on above: Average GFR for 50-5 9 years old: 93 mL/min/1.73sq m Chronic Kidney Disease: <60 mL/min/1.73sq m Kidney failure: <15 mL/min/1.73sq m eGFR calculated using average adult body mass. Additional eGFR calculator available at: http://www.[employer]/multiple_crcl_2012.htm Stage 1: Some kidney damage normal GFR Stage 2: Mild kidney damage GFR 60-89 Stage 3: Moderate kidney damage GFR 30-59 Stage 4: Severe kidney damage GFR 15-29 Stage 5: Severe kidney damage GFR <15 ESRD - chronic treatment by dialysis or transplant Otheron 03-26-2020 Interpretation and review of laboratory results Abnormal [place] SPECIMEN REJECTIONon 021 Ordered Test CDP [place] Reason for Rejection Unable to perform testing: Specimen clotted. [place] Specimen source Nom (Unsp spec) .BLOOD [place] - NOT REPORTED [place] Urinalysis, reflex to micros copicon 03-26-[address] [facility] [place] [place] Color, UA YELLOW YELLOW [place] Glucose, Ur Negative NEGATIVE [place] Ketones Ql (U) Negative NEGATIVE [place] Leukocyte esterase Test strip Ql (U) Negative NEGATIVE [place] Nitrite, Urine Negative NEGATIVE [place] pH, UA 5.5 [place] Protein (U) [Mass/Vol] Negative NEGATIVE [place] Specific [place], UA 1.010 [place], [place] Turbidity UA CLEAR CLEAR [place] Urinalysis Comments NOT REPORTED [place] Urine Hgb Negative NEGATIVE [place] Urobilinogen, Urine Normal Normal [place] CBC auto differentialon 08-07 Basophils (Bld) [#/Vol] 0.04 10*3/uL [place] Basophils/100 WBC (Bld) 1 % 0 - 2 % [place] Differential Type NOT REPORTED [place] Eosinophils (Bld) [#/Vol] 0.10 10*3/uL [place] Eosinophils/100 WBC (Bld) 1 % 1 - 4 % [place] Erythrocyte distribution width (RBC) [Ratio] 13.0 % 11.8 - 14.4 % [place] Hematocrit (Bld) [Volume fraction] 35.2 % Low 36.3 - 47.1 % [place] Hemoglobin (Bld) [Mass/Vol] 11.7 g/dL Low 11.9 - 15.1 g/dL [place] Immature granulocytes (Bld) [#/Vol] 10*3/uL [place] Immature granulocytes (Bld) [#/Vol] 0 % 0 [place] Interpretation and review of laboratory results Abnormal [place] Lymphocytes (Bld) [#/Vol] 1.87 10*3/uL [place] Lymphocytes/100 WBC (Bld) 22 % Low 24 - 43 % [place] MCH (RBC) [Entitic mass] 32.5 pg 25.2 - 33.5 pg [place] MCHC (RBC) [Mass/Vol] 33.2 g/dL 28.4 - 34.8 g/dL [place] MCV (RBC) [Entitic vol] 97.8 fL 82.6 - 102.9 fL [place] Monocytes (Bld) [#/Vol] 0.86 10*3/uL [place] Monocytes/100 WBC (Bld) 10 % 3 - 12 % [place] Platelet mean volume (Bld) [Entitic vol] 9.8 fL 8.1 - 13.5 fL [place] Platelets (Bld) [#/Vol] NOT REPORTED [place] Platelets (Bld) [#/Vol] 178 10*3/uL [place] RBC (Bld) [#/Vol] 3.60 10*6/uL Low 3.95 - 5.11 m/uL [place] RBC morphology finding Nom (Bld) NOT REPORTED [place] Segmented neutrophils/100 WBC (Bld) 66 % High 36 - 65 % [place] Segs Absolute 5.53 [place] WBC (Bld) [#/Vol] 0.0 10*3/uL 0.0 per 100 WBC [place] WBC (Bld) [#/Vol] 8.4 10*3/uL [place] WBC Morphology NOT REPORTED [place] Lipaseon 08-25-2019 Lipase [Catalytic activity/Vol] 42 U/L 13 - 60 U/L [place] CBC auto differentialon 08-07 Basophils (Bld) [#/Vol] 0.04 10*3/uL [place] Basophils/100 WBC (Bld) 1 % 0 - 2 % [place] Differential Type NOT REPORTED [place] Eosinophils (Bld) [#/Vol] 0.08 10*3/uL [place] Eosinophils/100 WBC (Bld) 1 % 1 - 4 % [place] Erythrocyte distribution width (RBC) [Ratio] 12.9 % 11.8 - 14.4 % [place] Hematocrit (Bld) [Volume fraction] 35.9 % Low 36.3 - 47.1 % [place] Hemoglobin (Bld) [Mass/Vol] 11.9 g/dL 11.9 - 15.1 g/dL [place] Immature granulocytes (Bld) [#/Vol] 0 % 0 [place] Immature granulocytes (Bld) [#/Vol] 0.03 10*3/uL [place] Interpretation and review of laboratory results Abnormal [place] Lymphocytes (Bld) [#/Vol] 1.79 10*3/uL [place] Lymphocytes/100 WBC (Bld) 22 % Low 24 - 43 % [place] MCH (RBC) [Entitic mass] 32.3 pg 25.2 - 33.5 pg [place] MCHC (RBC) [Mass/Vol] 33.1 g/dL 28.4 - 34.8 g/dL [place] MCV (RBC) [Entitic vol] 97.6 fL 82.6 - 102.9 fL [place] Monocytes (Bld) [#/Vol] 0.75 10*3/uL [place] Monocytes/100 WBC (Bld) 9 % 3 - 12 % [place] Platelet mean volume (Bld) [Entitic vol] 10.1 fL 8.1 - 13.5 fL [place] Platelets (Bld) [#/Vol] 176 10*3/uL [place] Platelets (Bld) [#/Vol] NOT REPORTED [place] RBC (Bld) [#/Vol] 3.68 10*6/uL Low 3.95 - 5.11 m/uL [place] RBC morphology finding Nom (Bld) NOT REPORTED [place] Segmented neutrophils/100 WBC (Bld) 67 % High 36 - 65 % [place] Segs Absolute 5.61 [place] WBC (Bld) [#/Vol] 0.0 10*3/uL 0.0 per 100 WBC [place] WBC (Bld) [#/Vol] 8.3 10*3/uL [place] WBC Morphology NOT REPORTED [place] Lipaseon 08-24-2019 Interpretation and review of laboratory results Abnormal [place] Lipase [Catalytic activity/Vol] 69 U/L High 13 - 60 U/L [place] CBC auto differentialon 08-07 Basophils (Bld) [#/Vol] 0.05 10*3/uL [place] Basophils/100 WBC (Bld) 1 % 0 - 2 % [place] Differential Type NOT REPORTED [place] Eosinophils (Bld) [#/Vol] 0.13 10*3/uL [place] Eosinophils/100 WBC (Bld) 2 % 1 - 4 % [place] Erythrocyte distribution width (RBC) [Ratio] 13.2 % 11.8 - 14.4 % [place] Hematocrit (Bld) [Volume fraction] 36.7 % 36.3 - 47.1 % [place] Hemoglobin (Bld) [Mass/Vol] 11.8 g/dL Low 11.9 - 15.1 g/dL [place] Immature granulocytes (Bld) [#/Vol] 0 % 0 [place] Immature granulocytes (Bld) [#/Vol] 10*3/uL [place] Interpretation and review of laboratory results Abnormal [place] Lymphocytes (Bld) [#/Vol] 2.39 10*3/uL [place] Lymphocytes/100 WBC (Bld) 28 % 24 - 43 % [place] MCH (RBC) [Entitic mass] 32.1 pg 25.2 - 33.5 pg [place] MCHC (RBC) [Mass/Vol] 32.2 g/dL 28.4 - 34.8 g/dL [place] MCV (RBC) [Entitic vol] 99.7 fL 82.6 - 102.9 fL [place] Monocytes (Bld) [#/Vol] 0.77 10*3/uL [place] Monocytes/100 WBC (Bld) 9 % 3 - 12 % [place] Platelet mean volume (Bld) [Entitic vol] 10.1 fL 8.1 - 13.5 fL [place] Platelets (Bld) [#/Vol] 174 10*3/uL [place] Platelets (Bld) [#/Vol] NOT REPORTED [place] RBC (Bld) [#/Vol] 3.68 10*6/uL Low 3.95 - 5.11 m/uL [place] RBC morphology finding Nom (Bld) NOT REPORTED [place] Segmented neutrophils/100 WBC (Bld) 60 % 36 - 65 % [place] Segs Absolute 5.22 [place] WBC (Bld) [#/Vol] 0.0 10*3/uL 0.0 per 100 WBC [place] WBC (Bld) [#/Vol] 8.6 10*3/uL [place] WBC Morphology NOT REPORTED [place] Comprehensive metabolic pane nimesh 08-23-2019 Albumin [Mass/Vol] 3.4 g/dL Low 3.5 - 5.2 g/dL [place] Albumin/Globulin [Mass ratio] 1.7 {ratio} [place] ALP [Catalytic activity/Vol] 102 U/L 35 - 104 U/L [place] ALT [Catalytic activity/Vol] 34 U/L High 5 - 33 U/L [place] Anion gap [Moles/Vol] 7 mmol/L Low 9 - 17 mmol/L [place] AST [Catalytic activity/Vol] 95 U/L High <32 [place] Bilirubin Ql (U) 0.46 mg/dL 0.3 - 1.2 mg/dL [place] Bun/Cre Ratio 11 [place] Calcium [Mass/Vol] 8.4 mg/dL Low 8.6 - 10. 4 mg/dL [place] Chloride [Moles/Vol] 109 mmol/L High 98 - 10 7 mmol/L [place] CO2 [Moles/Vol] 22 mmol/L 20 - 31 mmol/L [place] Creatinine [Mass/Vol] 0.66 mg/dL 0.5 - 0.9 mg/dL [place] GFR >60 >60 mL/min [place] GFR Non- >60 >60 mL/min [place] Glucose [Mass/Vol] 89 mg/dL 70 - 99 mg/dL [place] Potassium [Moles/Vol] 4.3 mmol/L 3.7 - 5.3 mmol/L [place] Protein [Mass/Vol] 5.4 g/dL Low 6.4 - 8.3 g/dL [place] Sodium [Moles/Vol] 138 mmol/L 135 - 144 mmol/L [place] Urea nitrogen [Mass/Vol] 7 mg/dL 6 - 20 mg/dL [place] Lipaseon 08-23-2019 Lipase [Catalytic activity/Vol] 96 U/L High 13 - 60 U/L [place] Metabolic Panelon 08-23-2019 GFR/1.73 sq M predicted among non-blacks MDRD (S/P/Bld) [Vol rate/Area] [place] Comment on above: Stage 1: Some [...] body mass. Additional eGFR calculator available at: http://www.[employer]/multiple_crcl_2012.htm Otheron 08-23-2019 Interpretation and review of laboratory results Abnormal [place] CBC Auto Differentialon 08-07 Basophils (Bld) [#/Vol] 0.06 10*3/uL [place] Basophils/100 WBC (Bld) 1 % 0 - 2 % [place] Differential Type NOT REPORTED [place] Eosinophils (Bld) [#/Vol] 0.11 10*3/uL [place] Eosinophils/100 WBC (Bld) 1 % 1 - 4 % [place] Erythrocyte distribution width (RBC) [Ratio] 13.2 % 11.8 - 14.4 % [place] Hematocrit (Bld) [Volume fraction] 41.8 % 36.3 - 47.1 % [place] Hemoglobin (Bld) [Mass/Vol] 13.7 g/dL 11.9 - 15.1 g/dL [place] Immature granulocytes (Bld) [#/Vol] 0.03 10*3/uL [place] Immature granulocytes (Bld) [#/Vol] 0 % 0 [place] Interpretation and review of laboratory results Abnormal [place] Lymphocytes (Bld) [#/Vol] 2.23 10*3/uL [place] Lymphocytes/100 WBC (Bld) 24 % 24 - 43 % [place] MCH (RBC) [Entitic mass] 32.6 pg 25.2 - 33.5 pg [place] MCHC (RBC) [Mass/Vol] 32.8 g/dL 28.4 - 34.8 g/dL [place] MCV (RBC) [Entitic vol] 99.5 fL 82.6 - 102.9 fL [place] Monocytes (Bld) [#/Vol] 0.72 10*3/uL [place] Monocytes/100 WBC (Bld) 8 % 3 - 12 % [place] Platelet mean volume (Bld) [Entitic vol] 10.0 fL 8.1 - 13.5 fL [place] Platelets (Bld) [#/Vol] NOT REPORTED [place] Platelets (Bld) [#/Vol] 213 10*3/uL [place] RBC (Bld) [#/Vol] 4.20 10*6/uL 3.95 - 5.11 m/uL [place] RBC morphology finding Nom (Bld) NOT REPORTED [place] Segmented neutrophils/100 WBC (Bld) 66 % High 36 - 65 % [place] Segs Absolute 6.22 [place] WBC (Bld) [#/Vol] 0.0 10*3/uL 0.0 per 100 WBC [place] WBC (Bld) [#/Vol] 9.4 10*3/uL [place] WBC Morphology NOT REPORTED [place] Comprehensive Metabolic Pane nimesh 08-22-2019 Albumin [Mass/Vol] 4.1 g/dL 3.5 - 5.2 g/dL [place] Albumin/Globulin [Mass ratio] 1.6 {ratio} [place] ALP [Catalytic activity/Vol] 109 U/L High 35 - 104 U/L [place] ALT [Catalytic activity/Vol] 13 U/L 5 - 33 U/L [place] Anion gap [Moles/Vol] 9 mmol/L 9 - 17 mmol/L [place] AST [Catalytic activity/Vol] 22 U/L <32 [place] Bilirubin Ql (U) <0.10 Low 0.3 - 1.2 mg/dL [place] Bun/Cre Ratio 13 [place] Calcium [Mass/Vol] 9.2 mg/dL 8.6 - 10. 4 mg/dL [place] Chloride [Moles/Vol] 103 mmol/L 98 - 10 7 mmol/L [place] CO2 [Moles/Vol] 24 mmol/L 20 - 31 mmol/L [place] Creatinine [Mass/Vol] 0.63 mg/dL 0.5 - 0.9 mg/dL [place] GFR >60 >60 mL/min [place] GFR Non- >60 >60 mL/min [place] Glucose [Mass/Vol] 92 mg/dL 70 - 99 mg/dL [place] Interpretation and review of laboratory results Abnormal [place] Potassium [Moles/Vol] 3.8 mmol/L 3.7 - 5.3 mmol/L [place] Protein [Mass/Vol] 6.7 g/dL 6.4 - 8.3 g/dL [place] Sodium [Moles/Vol] 136 mmol/L 135 - 144 mmol/L [place] Urea nitrogen [Mass/Vol] 8 mg/dL 6 - 20 mg/dL [place] Lactic Acid, Plasmaon 2019 Lactate [Moles/Vol] 1.5 mmol/L 0.5 - 2. 2 mmol/L [place] Lactic Acid, Whole Blood NOT REPORTED 0.7 - 2.1 mmol/L [place] Lipaseon 08-22-2019 Interpretation and review of laboratory results Abnormal [place] Lipase [Catalytic activity/Vol] 255 U/L Critically high 13 - 60 U/L [place] Metabolic Panelon 08-22-2019 GFR/1.73 sq M predicted among non-blacks MDRD (S/P/Bld) [Vol rate/Area] [place] Comment on above: Average GFR for 50-5 9 years old: 93 mL/min/1.73sq m Chronic Kidney Disease: <60 mL/min/1.73sq m Kidney failure: <15 mL/min/1.73sq m eGFR calculated using average adult body mass. Additional eGFR calculator available at: [email or web address] Stage 1: Some kidney damage normal GFR Stage 2: Mild kidney damage GFR 60-89 Stage 3: Moderate kidney damage GFR 30-59 Stage 4: Severe kidney damage GFR 15-29 Stage 5: Severe kidney damage GFR <15 ESRD - chronic treatment by dialysis or transplant Urinalysis with Microscopico n 08-22-2019 Amorphous, UA NOT REPORTED None [place] Bacteria, UA NOT REPORTED None [place] Bilirubin Urine Negative NEGATIVE [place] Casts UA NOT REPORTED /LPF [place] Color, UA YELLOW YELLOW [place] Crystals, UA NOT REPORTED None /HPF [place] Epithelial Cells UA 2 TO 5 [place] Glucose, Ur Negative NEGATIVE [place] Interpretation and review of laboratory results Abnormal [place] Ketones Ql (U) Negative NEGATIVE [place] Leukocyte esterase Test strip Ql (U) Negative NEGATIVE [place] Mucus, UA NOT REPORTED None [place] Nitrite, Urine Negative NEGATIVE [place] Other Observations UA NOT REPORTED NOT REQ. [place] pH, UA 6.0 [place] Protein (U) [Mass/Vol] Negative NEGATIVE [place] RBC (U) [#/Vol] None [facility] [place] [place] Renal Epithelial, UA NOT REPORTED 0 /HPF [place] Specific [place], UA <1.005 [place], [place] Trichomonas, UA NOT REPORTED None [facility] [place] Turbidity UA CLEAR CLEAR [place] Urinalysis Comments NOT REPORTED [place] Urine Hgb Negative NEGATIVE [place] Urobilinogen, Urine Normal Normal [place] WBC, UA None [place] Yeast, UA NOT REPORTED None [place] - [place] CBC WITH AUTO DIFFERENTIALon 03-04-2018 Basophils Auto #/vol (Bld) 0.07 10*3/uL Invalid Interpretation Code [facility] Basophils/100 WBC Auto (Bld) 0.7 % Invalid Interpretation Code [facility] Eosinophils Auto #/vol (Bld) 0.09 10*3/uL Invalid Interpretation Code [facility] Eosinophils/100 WBC Auto (Bld) 0.9 % Invalid Interpretation Code [facility] Erythrocyte distribution width Auto Entitic volume (RBC) 12.8 % Invalid Interpretation Code 11.6 - 14.8 % [facility] Hematocrit Auto Volume Fraction (Bld) 45.0 % Invalid Interpretation Code 36 - 46 % [facility] Hemoglobin mass conc (Bld) 15.4 g/dL Invalid Interpretation Code 12 - 16 g/dL [facility] Immature granulocytes #/vol (Bld) 0.03 10*3/uL Invalid Interpretation Code [facility] Immature granulocytes/100 WBC (Bld) 0.30 % Invalid Interpretation Code [facility] Comment on above: The IG parameter is the percentage of metamyelocytes, myelocytes, and promyelocytes. Interpretation and review of laboratory results Abnormal Invalid Interpretation Code [facility] Lymphocytes Auto #/vol (Bld) 2.22 10*3/uL Invalid Interpretation Code [facility] Lymphocytes/100 WBC Auto (Bld) 21.0 % Invalid Interpretation Code [facility] MCH Auto Entitic mass (RBC) 33.6 pg Invalid Interpretation Code 26 - 34 pg [facility] MCHC Auto mass conc (RBC) 34.2 g/dL Invalid Interpretation Code 31 - 37 g/dL [facility] MCV Auto Entitic volume (RBC) 98.0 fL Invalid Interpretation Code 80 - 100 fL [facility] Monocytes Auto #/vol (Bld) 0.82 10*3/uL Invalid Interpretation Code [facility] Monocytes/100 WBC Auto (Bld) 7.8 % Invalid Interpretation Code [facility] Neutrophils Auto #/vol (Bld) 7.33 10*3/uL High [facility] Neutrophils/100 WBC Auto (Bld) 69.3 % Invalid Interpretation Code [facility] Nucleated RBC #/vol (Bld) 0.00 10*3/uL Invalid Interpretation Code [facility] Nucleated RBC/100 WBC Ratio (Bld) 0.0 % Invalid Interpretation Code [facility] Platelet mean volume Auto Entitic volume (Bld) 10.1 fL Invalid Interpretation Code 9 - 15.5 fL [facility] Platelets Auto #/vol (Bld) 254 10*3/uL Invalid Interpretation Code [facility] RBC Auto #/vol (Bld) 4.59 10*6/uL Invalid Interpretation Code [facility] WBC Auto #/vol (Bld) 10.56 10*3/uL Invalid Interpretation Code [facility] Chem 7on 03-04-2018 Anion gap 3 molar conc 15 mmol/L Invalid Interpretation Code 20 mmol/L [facility] Chloride molar conc 103 mmol/L Invalid Interpretation Code 98 - 108 mmol/L [facility] Creatinine mass conc 0.85 mg/dL Invalid Interpretation Code 0.4 - 1.1 mg/dL [facility] GFR/1.73 sq M predicted among non-blacks MDRD vol rate/area (S/P/Bld) The eGFR should be used for monitoring renal function only and not for medication dosing. Invalid Interpretation Code [facility] GFR/1.73 sq M.predicted CKD-EPI vol rate/area (S/P/Bld) 81 Invalid Interpretation Code >=60 mL/min/1.7 3 m2 [facility] Glucose mass conc 92 mg/dL Invalid Interpretation Code 65 - 99 mg/dL [facility] HCO3 molar conc 25 mmol/L Invalid Interpretation Code 21 - 32 mmol/L [facility] Potassium molar conc 4.4 mmol/L Invalid Interpretation Code 3.5 - 5.1 mmol/L [facility] Sodium molar conc 139 mmol/L Invalid Interpretation Code 135 - 145 mmol/L [facility] Urea nitrogen mass conc 7 mg/dL Low 8 - 25 mg/dL [facility] Urea nitrogen/Creatinine mass ratio 8.2 mg/mg Low [facility] Hepatic Function Panel (LFT) on 03-04-2018 Albumin mass conc 4.5 g/dL Invalid Interpretation Code 3.2 - 5.2 g/dL [facility] ALP enzyme act/vol 97 U/L Invalid Interpretation Code 40 - 150 U/L [facility] ALT enzyme act/vol 9 U/L Invalid Interpretation Code 0 - 40 U/L [facility] AST enzyme act/vol 15 U/L Invalid Interpretation Code 0 - 45 U/L [facility] Bilirubin mass conc mg/dL Invalid Interpretation Code 0 - 1.3 mg/dL [facility] Bilirubin.conjugated mass conc mg/dL Invalid Interpretation Code 0 - 0.4 mg/dL [facility] Interpretation and review of laboratory results Normal Invalid Interpretation Code [facility] Protein mass conc 7.2 g/dL Invalid Interpretation Code 6 - 8 g/dL [facility] Lipaseon 03-04-2018 Lipase enzyme act/vol 179 U/L High 15 - 6 5 U/L [facility] Otheron 03-04-2018 Extra Tube Hold for add-ons. Invalid Interpretation Code [facility] Comment on above: Auto resulted. Interpretation and review of laboratory results Abnormal Invalid Interpretation Code [facility] URINALYSISon 03-04-2018 Bacteria Auto Ql (U) Rare Abnormal None Se en /hpf [facility] Bilirubin Ql (U) Negative Invalid Interpretation Code Negative [facility] Clarity Refractometry automated Nom (U) Clear Invalid Interpretation Code Clear [facility] Color Auto Nom (U) Colorless Invalid Interpretation Code Colorless, Yellow [facility] Epithelial cells.squamous Auto #/area (Urine sed) 1 Invalid Interpretation Code [facility] Glucose Automated test strip mass conc (U) Negative Invalid Interpretation Code Negative mg/dL [facility] Hemoglobin Automated test strip Ql (U) Negative Invalid Interpretation Code Negative [facility] Interpretation and review of laboratory results Abnormal Invalid Interpretation Code [facility] Ketones mass conc (U) Negative Invalid Interpretation Code Negative mg/dL [facility] Leukocyte esterase Automated test strip Ql (U) Negative Invalid Interpretation Code Negative [facility] Nitrite Automated test strip Ql (U) Negative Invalid Interpretation Code Negative [facility] pH Test strip (U) 7.0 [pH] Invalid Interpretation Code [facility] Protein mass conc (U) Negative Invalid Interpretation Code Negative mg/dL [facility] RBC Auto #/area (Urine sed) 2 Invalid Interpretation Code [facility] Specific gravity Automated test strip Relative Density (U) 1.004 Low [facility] Urobilinogen Test strip Qn (U) <2.0 Invalid Interpretation Code <2.0 mg/dL [facility] WBC Auto #/area (Urine sed) <1 Invalid Interpretation Code [facility] Microscopic examinat ion is performed on all urinalysis samples and only positive findings are reported. The test for blood on the chemical analytic portion of urinalysis may also be positive due to hemoglobinuria and myoglobinuria and if red blood cells are present they are quantified by microscopic examination. Invalid Interpretation Code [facility] BMPon 08-24-2017 Anion gap 18 mmol/L Invalid Interpretation Code 10 - 20 mmol/L [facility] Bicarbonate (HCO3) 27 mmol/L Invalid Interpretation Code 21 - 32 mmol/L [facility] BUN/Creatinine Ratio 10.1 mg/mg Invalid Interpretation Code 10.0 - 20.0 [facility] Calcium 10.6 mg/dL High 8.4 - 10.2 mg/dL [facility] Chloride 101 mmol/L Invalid Interpretation Code 98 - 108 mmol/L [facility] Creatinine 0.69 mg/dL Invalid Interpretation Code 0.4 - 1.1 mg/dL [facility] eGFR (non-black) 103 mL/min/{1.73_m2} Invalid Interpretation Code >=60 [facility] eGFR (non-black) The eGFR should be u sed for monitoring renal function only and not for medication dosing. Invalid Interpretation Code [facility] Glucose mass conc 105 mg/dL High 65 - 99 mg/dL [facility] Interpretation and review of laboratory results Abnormal Invalid Interpretation Code [facility] Potassium molar conc 4.1 mmol/L Invalid Interpretation Code 3.5 - 5.1 mmol/L [facility] Sodium 142 mmol/L Invalid Interpretation Code 135 - 145 mmol/L [facility] Urea nitrogen 7 mg/dL Low 8 - 25 mg/dL [facility] CBC Auto Differentialon 08-07 Basophils Auto #/vol (Bld) 0.08 K/mcL Invalid Interpretation Code 0.00 - 0.30 [facility] Basophils/100 WBC Auto (Bld) 0.6 % Invalid Interpretation Code [facility] Eosinophils 0.05 K/mcL Invalid Interpretation Code 0.00 - 0.50 [facility] Eosinophils/100 leukocytes 0.4 % Invalid Interpretation Code [facility] Erythrocyte distribution width Auto Entitic volume (RBC) 12.2 % Invalid Interpretation Code 11.6 - 14.8 % [facility] Erythrocytes (RBC) 4.60 M/mcL Invalid Interpretation Code 4.00 - 5.20 [facility] Hematocrit (HCT) 43.4 % Invalid Interpretation Code 36 - 46 % [facility] Hemoglobin mass conc (Bld) 15.2 g/dL Invalid Interpretation Code 12 - 16 g/dL [facility] Immature granulocytes #/vol (Bld) 0.05 K/mcL Invalid Interpretation Code 0.00 - 0.30 [facility] Immature granulocytes/100 WBC (Bld) 0.40 % Invalid Interpretation Code [facility] Comment on above: The IG parameter is the percentage of metamyelocytes, myelocytes, and promyelocytes. Lymphocytes 2.40 K/mcL Invalid Interpretation Code 0.90 - 4.00 [facility] Lymphocytes/100 leukocytes 18.1 % Invalid Interpretation Code [facility] MCH 33.0 pg Invalid Interpretation Code 26 - 34 pg [facility] MCHC mass conc (RBC) 35.0 g/dL Invalid Interpretation Code 31 - 37 g/dL [facility] MCV 94.3 fL Invalid Interpretation Code 80 - 100 fL [facility] Monocytes 0.85 K/mcL Invalid Interpretation Code 0.30 - 0.90 [facility] Monocytes/100 leukocytes 6.4 % Invalid Interpretation Code [facility] Neutrophils 9.81 K/mcL High 1.70 - 7.00 [facility] Neutrophils/100 WBC Auto (Bld) 74.1 % Invalid Interpretation Code [facility] Nucleated erythrocytes 0.00 K/mcL Invalid Interpretation Code 0.00 - 0.00 [facility] Nucleated erythrocytes/100 erythrocytes 0.0 % Invalid Interpretation Code [facility] Platelet mean volume (PMV) 10.0 fL Invalid Interpretation Code 9 - 15.5 fL [facility] Platelets 242 K/mcL Invalid Interpretation Code 150 - 400 [facility] WBC (Leukocytes) 13.24 K/mcL High 4.50 - 11.00 [facility] CBC w/ Diffon 08-24-2017 Creatinine The following orders were created for panel order CBC w/ Diff. Procedure Abnormality Status --------- ------ CBC Auto Differential[[id number]] Abnormal Final result Please view results for [...] and demonstrated a prominent signal loss on [id number] images on MRI performed 09/06/2014, compatible with [...] The ovaries probably remain.5. Small left adrenal adenoma.JRS/gesWorkstakale n ID: [id number] by: PONCHO GALAVIZ on ThuAug 24, 2017 3:53:38 PM EDTTranscribed by: RON KELLOGG on ThuAug 24, 2017 4:00:38 PM EDTFinalized by: PONCHO GALAVIZ on ThuAug 24, 2017 4:03:34 PM EDT [facility] Comment on above: Order Comment: [...] and demonstrated a prominent signal loss on [id number] images on MRI performed 09/06/2014, compatible with [...] probably remain. 5. Small left adrenal adenoma. Vinsula/sambaash Workstation ID: [id number] Invalid Interpretation Code [employer] [facility] CT Abdomen Pelvis With IV Contrast [...] and demonstrated a prominent signal loss on [id number] images on MRI performed 09/06/2014, compatible with [...] suspicious focal osseous lesions. Invalid Interpretation Code [employer] [facility] CT Abdomen Pelvis With IV Contrast [...] probably remain. 5. Small left adrenal adenoma. [employer]/sambaash Workstation ID: [id number] Invalid Interpretation Code [employer] [facility] Hepatic Function Panel (LFT) on 08-24-2017 Alanine aminotransferase (ALT) 14 U/L Invalid Interpretation Code 0 - 40 U/L [facility] Albumin 4.7 g/dL Invalid Interpretation Code 3.2 - 5.2 g/dL [facility] Alkaline phosphatase (ALP) 91 U/L Invalid Interpretation Code 40 - 150 U/L [facility] Aspartate aminotransferase (AST) 17 U/L Invalid Interpretation Code 0 - 45 U/L [facility] Bilirubin (conjugated) mg/dL Invalid Interpretation Code 0 - 0.4 mg/dL [facility] Bilirubin (total) mg/dL Invalid Interpretation Code 0 - 1.3 mg/dL [facility] Interpretation and review of laboratory results Normal Invalid Interpretation Code [facility] Protein 7.4 g/dL Invalid Interpretation Code 6 - 8 g/dL [facility] Lactic Acid, Plasmaon 2017 Lactate 1.0 mmol/L Invalid Interpretation Code 0.6 - 2 mmol/L [facility] Light Blue Topon 08-24-2017 Extra Tube Hold for add-ons. Invalid Interpretation Code [facility] Comment on above: Auto resulted. Lipaseon 08-24-2017 Lipase 51 U/L Invalid Interpretation Code 15 - 65 U/L [facility] Dennard Topon 08-24-2017 Dennard Top Invalid Interpretation Code [facility] [place] Drawon 08-24-2017 Creatinine The following orders were created for panel order [place] Draw. Procedure Abnormality Status --------- ------ Gold Top[[id number]] Final result Light Blue Top[[id number]] Final result Dennard Top[[id number]] Final result Please view results for these tests on the individual orders. Invalid Interpretation Code [facility] Urinalysison 08-24-2017 Bilirubin Ql (U) Negative Invalid Interpretation Code Negative [facility] Blood, Urine Negative Invalid Interpretation Code Negative [facility] Interpretation and review of laboratory results Abnormal Invalid Interpretation Code [facility] Nitrite, Urine Negative Invalid Interpretation Code Negative [facility] Squamous Epithelial 5 /hpf High 0 - 4 [facility] Transitional Epithelial <1 Invalid Interpretation Code 0 - 1 /hpf [facility] Urine, bacteria in sediment Rare Abnormal None Seen /hpf [facility] Urine, clarity Hazy Abnormal Clear [facility] Urine, color Yellow Invalid Interpretation Code Colorless, Yellow [facility] Urine, erythrocytes 1 /hpf Invalid Interpretation Code 0 - 3 [facility] Urine, glucose presence Negative Invalid Interpretation Code Negative mg/dL [facility] Urine, ketones presence Negative Invalid Interpretation Code Negative mg/dL [facility] Urine, leukocyte esterase presence Negative Invalid Interpretation Code Negative [facility] Urine, pH 7.0 [pH] Invalid Interpretation Code 5.0 - 7.0 [facility] Urine, protein Negative Invalid Interpretation Code Negative mg/dL [facility] Urine, specific gravity 1.006 1 Invalid Interpretation Code 1.005 - 1.025 [facility] Urine, urobilinogen <2.0 Invalid Interpretation Code <2.0 mg/dL [facility] WBCs, Urine 1 /hpf Invalid Interpretation Code 0 - 5 [facility] Urinalysis Microscopic examinat ion is performed on all urinalysis samples and only positive findings are reported. The test for blood on the chemical analytic portion of urinalysis may also be positive due to hemoglobinuria and myoglobinuria and if red blood cells are present they are quantified by microscopic examination. Invalid Interpretation Code [facility] BMPon 06-09-2017 Anion gap 18 mmol/L Invalid Interpretation Code 10 - 20 mmol/L [facility] Bicarbonate (HCO3) 21 mmol/L Invalid Interpretation Code 21 - 32 mmol/L [facility] BUN/Creatinine Ratio 11.0 mg/mg Invalid Interpretation Code 10.0 - 20.0 [facility] Calcium 10.2 mg/dL Invalid Interpretation Code 8.4 - 10.2 mg/dL [facility] Chloride 102 mmol/L Invalid Interpretation Code 98 - 108 mmol/L [facility] Creatinine 0.73 mg/dL Invalid Interpretation Code 0.4 - 1.1 mg/dL [facility] eGFR (non-black) The eGFR should be u sed for monitoring renal function only and not for medication dosing. Invalid Interpretation Code [facility] eGFR (non-black) 98 mL/min/{1.73_m2} Invalid Interpretation Code >=60 [facility] Glucose 80 mg/dL Invalid Interpretation Code 65 - 99 mg/dL [facility] Potassium 4.3 mmol/L Invalid Interpretation Code 3.5 - 5.1 mmol/L [facility] Sodium 137 mmol/L Invalid Interpretation Code 135 - 145 mmol/L [facility] Urea nitrogen 8 mg/dL Invalid Interpretation Code 8 - 25 mg/dL [facility] CBC Auto Differentialon Basophils 0.07 K/mcL Invalid Interpretation Code 0.00 - 0.30 [facility] Basophils/100 leukocytes 0.7 % Invalid Interpretation Code [facility] Eosinophils 0.10 K/mcL Invalid Interpretation Code 0.00 - 0.50 [facility] Eosinophils/100 leukocytes 1.0 % Invalid Interpretation Code [facility] Erythrocytes (RBC) 4.75 M/mcL Invalid Interpretation Code 4.00 - 5.20 [facility] Erythrocytes (RBC) 0.00 K/mcL Invalid Interpretation Code 0.00 - 0.00 [facility] Hematocrit (HCT) 46.1 % High 36 - 46 % [facility] Hemoglobin (HGB) 16.1 g/dL High 12 - 16 g/dL [facility] IG Absolute 0.02 K/mcL Invalid Interpretation Code 0.00 - 0.30 [facility] IG Percent 0.20 % Invalid Interpretation Code [facility] Lymphocytes 1.75 K/mcL Invalid Interpretation Code 0.90 - 4.00 [facility] Lymphocytes/100 leukocytes 17.9 % Invalid Interpretation Code [facility] MCH 33.9 pg Invalid Interpretation Code 26 - 34 pg [facility] MCHC 34.9 g/dL Invalid Interpretation Code 31 - 37 g/dL [facility] MCV 97.1 fL Invalid Interpretation Code 80 - 100 fL [facility] Monocytes 0.88 K/mcL Invalid Interpretation Code 0.30 - 0.90 [facility] Monocytes/100 leukocytes 9.0 % Invalid Interpretation Code [facility] Neutrophils 6.98 K/mcL Invalid Interpretation Code 1.70 - 7.00 [facility] Neutrophils/100 leukocytes 71.2 % Invalid Interpretation Code [facility] Nucleated erythrocytes/100 erythrocytes 0.0 % Invalid Interpretation Code [facility] Platelet mean volume (PMV) 10.9 fL Invalid Interpretation Code 9 - 15.5 fL [facility] Platelets 223 K/mcL Invalid Interpretation Code 150 - 400 [facility] RDW-CA 12.8 % Invalid Interpretation Code 11.6 - 14.8 % [facility] WBC (Leukocytes) 9.80 K/mcL Invalid Interpretation Code 4.50 - 11.00 [facility] Interpretation and review of laboratory results Abnormal Invalid Interpretation Code [facility] CBC w/ Diffon 06-09-2017 Creatinine The following orders were created for panel order CBC w/ Diff. Procedure Abnormality Status --------- ------ CBC Auto Differential[[id number]] Abnormal Final result Please view results for these tests on the individual orders. Invalid Interpretation Code [facility] Hepatic Function Panel (LFT) on 06-09-2017 Alanine aminotransferase (ALT) 10 U/L Invalid Interpretation Code 0 - 40 U/L [facility] Albumin 4.4 g/dL Invalid Interpretation Code 3.2 - 5.2 g/dL [facility] Alkaline phosphatase (ALP) 89 U/L Invalid Interpretation Code 40 - 150 U/L [facility] Aspartate aminotransferase (AST) 20 U/L Invalid Interpretation Code 0 - 45 U/L [facility] Bilirubin (conjugated) mg/dL Invalid Interpretation Code 0 - 0.4 mg/dL [facility] Bilirubin (total) mg/dL Invalid Interpretation Code 0 - 1.3 mg/dL [facility] Interpretation and review of laboratory results Normal Invalid Interpretation Code [facility] Protein 7.3 g/dL Invalid Interpretation Code 6 - 8 g/dL [facility] Lipaseon 06-09-2017 Lipase 50 U/L Invalid Interpretation Code 15 - 65 U/L [facility] [place] 06-09-2017 Creatinine The following orders were created for panel order [place] [facility]. Procedure Abnormality Status --------- ------ Urine Container[[id number]] Final result Please view results for these tests on the individual orders. Invalid Interpretation Code [facility] 06-09-2017 Bilirubin, Urine Negative Invalid Interpretation Code Negative [facility] Blood, Urine Negative Invalid Interpretation Code Negative [facility] Calcium Many Abnormal None Seen /hpf [facility] Mucus, Urine Rare Invalid Interpretation Code None Seen, Rare /lpf [facility] Nitrite, Urine Negative Invalid Interpretation Code Negative [facility] RBCs, Urine 1 /hpf Invalid Interpretation Code 0 - 3 [facility] Squamous Epithelial 4 /hpf Invalid Interpretation Code 0 - 4 [facility] Urine, bacteria in sediment None Seen Invalid Interpretation Code None Seen /hpf [facility] Urine, clarity Cloudy Abnormal Clear [facility] Urine, color Yellow Invalid Interpretation Code Colorless, Yellow [facility] Urine, glucose presence Negative Invalid Interpretation Code Negative mg/dL [facility] Urine, ketones presence Trace Abnormal Negative mg/dL [facility] Urine, leukocyte esterase presence Negative Invalid Interpretation Code Negative [facility] Urine, pH 5.0 [pH] Invalid Interpretation Code 5.0 - 7.0 [facility] Urine, protein Negative Invalid Interpretation Code Negative mg/dL [facility] Urine, specific gravity 1.024 1 Invalid Interpretation Code 1.005 - 1.025 [facility] Urine, urobilinogen 2.0 mg/dL Abnormal <2.0 [facility] WBCs, Urine 1 /hpf Invalid Interpretation Code 0 - 5 [facility] Urinalysis Microscopic examinat ion is performed on all urinalysis samples and only positive findings are reported. The test for blood on the chemical analytic portion of urinalysis may also be positive due to hemoglobinuria and myoglobinuria and if red blood cells are present they are quantified by microscopic examination. Invalid Interpretation Code [facility] Urine Containeron 06-09-2017 Urine Container Invalid Interpretation Code [facility] CBCon 05-15-2017 Erythrocytes (RBC) 3.76 M/mcL Low 4.00 - 5.20 [facility] Erythrocytes (RBC) 0.00 K/mcL Invalid Interpretation Code 0.00 - 0.00 [facility] Hematocrit (HCT) 37.1 % Invalid Interpretation Code 36 - 46 % [facility] Hemoglobin (HGB) 12.4 g/dL Invalid Interpretation Code 12 - 16 g/dL [facility] MCH 33.0 pg Invalid Interpretation Code 26 - 34 pg [facility] MCHC 33.4 g/dL Invalid Interpretation Code 31 - 37 g/dL [facility] MCV 98.7 fL Invalid Interpretation Code 80 - 100 fL [facility] Nucleated erythrocytes/100 erythrocytes 0.0 % Invalid Interpretation Code [facility] Platelet mean volume (PMV) 9.9 fL Invalid Interpretation Code 9 - 15.5 fL [facility] Platelets 197 K/mcL Invalid Interpretation Code 150 - 400 [facility] RDW-CA 12.6 % Invalid Interpretation Code 11.6 - 14.8 % [facility] WBC (Leukocytes) 7.55 K/mcL Invalid Interpretation Code 4.50 - 11.00 [facility] Comprehensive Metabolic Pane nimesh 05-15-2017 Alanine aminotransferase (ALT) 9 U/L Invalid Interpretation Code 0 - 40 U/L [facility] Albumin 3.3 g/dL Invalid Interpretation Code 3.2 - 5.2 g/dL [facility] Alkaline phosphatase (ALP) 73 U/L Invalid Interpretation Code 40 - 150 U/L [facility] Anion gap 15 mmol/L Invalid Interpretation Code 10 - 20 mmol/L [facility] Aspartate aminotransferase (AST) 13 U/L Invalid Interpretation Code 0 - 45 U/L [facility] Bicarbonate (HCO3) 23 mmol/L Invalid Interpretation Code 21 - 32 mmol/L [facility] Bilirubin (total) 0.2 mg/dL Invalid Interpretation Code 0 - 1.3 mg/dL [facility] BUN/Creatinine Ratio 9.4 mg/mg Low 10.0 - 20.0 [facility] Calcium 8.4 mg/dL Invalid Interpretation Code 8.4 - 10.2 mg/dL [facility] Chloride 108 mmol/L Invalid Interpretation Code 98 - 108 mmol/L [facility] Creatinine 0.64 mg/dL Invalid Interpretation Code 0.4 - 1.1 mg/dL [facility] eGFR (non-black) The eGFR should be u sed for monitoring renal function only and not for medication dosing. Invalid Interpretation Code [facility] eGFR (non-black) 107 mL/min/{1.73_m2} Invalid Interpretation Code >=60 [facility] Glucose 91 mg/dL Invalid Interpretation Code 65 - 99 mg/dL [facility] Potassium 4.0 mmol/L Invalid Interpretation Code 3.5 - 5.1 mmol/L [facility] Protein 5.3 g/dL Low 6 - 8 g/dL [facility] Sodium 142 mmol/L Invalid Interpretation Code 135 - 145 mmol/L [facility] Urea nitrogen 6 mg/dL Low 8 - 25 mg/dL [facility] Lipaseon 05-15-2017 Interpretation and review of laboratory results Normal Invalid Interpretation Code [facility] Lipase 31 U/L Invalid Interpretation Code 15 - 65 U/L [facility] Lipid Panelon 05-15-2017 Cholesterol 193 mg/dL Invalid Interpretation Code 100 - 199 mg/dL [facility] Cholesterol to HDL Ratio 7.1 {ratio} Invalid Interpretation Code [facility] HDL Cholesterol 27 mg/dL Low 40 - 59 mg/dL [facility] HDL Cholesterol 166 mg/dL Invalid Interpretation Code [facility] Interpretation and review of laboratory results Abnormal Invalid Interpretation Code [facility] LDL Cholesterol 108 mg/dL Invalid Interpretation Code 10 - 130 mg/dL [facility] Triglyceride 291 mg/dL High 30 - 150 mg/dL [facility] BMPon 05-14-2017 Anion gap 18 mmol/L Invalid Interpretation Code 10 - 20 mmol/L [facility] Bicarbonate (HCO3) 25 mmol/L Invalid Interpretation Code 21 - 32 mmol/L [facility] BUN/Creatinine Ratio 11.8 mg/mg Invalid Interpretation Code 10.0 - 20.0 [facility] Calcium 10.7 mg/dL High 8.4 - 10.2 mg/dL [facility] Chloride 102 mmol/L Invalid Interpretation Code 98 - 108 mmol/L [facility] Creatinine 0.68 mg/dL Invalid Interpretation Code 0.4 - 1.1 mg/dL [facility] eGFR (non-black) The eGFR should be u sed for monitoring renal function only and not for medication dosing. Invalid Interpretation Code [facility] eGFR (non-black) 105 mL/min/{1.73_m2} Invalid Interpretation Code >=60 [facility] Glucose 86 mg/dL Invalid Interpretation Code 65 - 99 mg/dL [facility] Potassium 4.0 mmol/L Invalid Interpretation Code 3.5 - 5.1 mmol/L [facility] Sodium 141 mmol/L Invalid Interpretation Code 135 - 145 mmol/L [facility] Urea nitrogen 8 mg/dL Invalid Interpretation Code 8 - 25 mg/dL [facility] CBC Auto Differentialon Basophils 0.09 K/mcL Invalid Interpretation Code 0.00 - 0.30 [facility] Basophils/100 leukocytes 0.8 % Invalid Interpretation Code [facility] Eosinophils 0.08 K/mcL Invalid Interpretation Code 0.00 - 0.50 [facility] Eosinophils/100 leukocytes 0.7 % Invalid Interpretation Code [facility] Erythrocytes (RBC) 0.00 K/mcL Invalid Interpretation Code 0.00 - 0.00 [facility] Erythrocytes (RBC) 4.96 M/mcL Invalid Interpretation Code 4.00 - 5.20 [facility] Hematocrit (HCT) 48.5 % High 36 - 46 % [facility] Hemoglobin (HGB) 16.6 g/dL High 12 - 16 g/dL [facility] IG Absolute 0.04 K/mcL Invalid Interpretation Code 0.00 - 0.30 [facility] IG Percent 0.40 % Invalid Interpretation Code [facility] Interpretation and review of laboratory results Abnormal Invalid Interpretation Code [facility] Lymphocytes 1.89 K/mcL Invalid Interpretation Code 0.90 - 4.00 [facility] Lymphocytes/100 leukocytes 17.7 % Invalid Interpretation Code [facility] MCH 33.5 pg Invalid Interpretation Code 26 - 34 pg [facility] MCHC 34.2 g/dL Invalid Interpretation Code 31 - 37 g/dL [facility] MCV 97.8 fL Invalid Interpretation Code 80 - 100 fL [facility] Monocytes 0.74 K/mcL Invalid Interpretation Code 0.30 - 0.90 [facility] Monocytes/100 leukocytes 6.9 % Invalid Interpretation Code [facility] Neutrophils 7.86 K/mcL High 1.70 - 7.00 [facility] Neutrophils/100 leukocytes 73.5 % Invalid Interpretation Code [facility] Nucleated erythrocytes/100 erythrocytes 0.0 % Invalid Interpretation Code [facility] Platelet mean volume (PMV) 9.8 fL Invalid Interpretation Code 9 - 15.5 fL [facility] Platelets 275 K/mcL Invalid Interpretation Code 150 - 400 [facility] RDW-CA 12.8 % Invalid Interpretation Code 11.6 - 14.8 % [facility] WBC (Leukocytes) 10.70 K/mcL Invalid Interpretation Code 4.50 - 11.00 [facility] CBC w/ Diffon 05-14-2017 Creatinine The following orders were created for panel order CBC w/ Diff. Procedure Abnormality Status --------- ------ CBC Auto Differential[[id number]] Abnormal Final result Please view results for [...] appendix in the left lower pelvis.Workstation ID: [id number] by: ERROL ANN on ThuMay 14, 2017 4:08:10 PM ESTTranscribed by: ERROL ANN on ThuMay 14, 2017 4:08:10 PM ESTFinalized by: ERROL ANN on ThuMay 14, 2017 4:08:10 PM EST Normal [facility] Comment on above: Order Comment: Reaso [...] at L1-L2 and L4-L5. Invalid Interpretation Code [employer] [facility] CT Abdomen Pelvis With IV Contrast Only Interface, Rad In [place] [facility] [place] - 05/14/2017 4:10 PM EST EXAMINATION: CT [...] in the left lower pelvis. Workstation ID: [id number] Invalid Interpretation Code [employer] [facility] CT Abdomen Pelvis With IV Contrast [...] in the left lower pelvis. Workstation ID: [id number] Invalid Interpretation Code [employer] [facility] Ruff Topon 05-14-2017 Extra Tube Hold for add-ons. Invalid Interpretation Code [facility] Hepatic Function Panel (LFT) on 05-14-2017 Alanine aminotransferase (ALT) 13 U/L Invalid Interpretation Code 0 - 40 U/L [facility] Albumin 4.8 g/dL Invalid Interpretation Code 3.2 - 5.2 g/dL [facility] Alkaline phosphatase (ALP) 102 U/L Invalid Interpretation Code 40 - 150 U/L [facility] Aspartate aminotransferase (AST) 20 U/L Invalid Interpretation Code 0 - 45 U/L [facility] Bilirubin (conjugated) mg/dL Invalid Interpretation Code 0 - 0.4 mg/dL [facility] Bilirubin (total) 0.2 mg/dL Invalid Interpretation Code 0 - 1.3 mg/dL [facility] Interpretation and review of laboratory results Normal Invalid Interpretation Code [facility] Protein 7.9 g/dL Invalid Interpretation Code 6 - 8 g/dL [facility] Lipaseon 05-14-2017 Lipase 137 U/L High 15 - 65 U/L [facility] Dennard Topon 05-14-2017 Dennard Top Invalid Interpretation Code [facility] [place] Draw[place] 05-14-2017 Creatinine The following orders were created for panel order [place] [facility]. Procedure Abnormality Status --------- ------ Gold Top[[id number]] Final result Light Blue Top[[id number]] Final result Ruff Top[[id number]] Final result Dennard Top[[id number]] Final result Please view results for these tests on the individual orders. Invalid Interpretation Code [facility] [place] Urinalysis[facility] 05-14-2017 Bilirubin, Urine Negative Invalid Interpretation Code Negative [facility] Blood, Urine Negative Invalid Interpretation Code Negative [facility] Interpretation and review of laboratory results Abnormal Invalid Interpretation Code [facility] Mucus, Urine Rare Invalid Interpretation Code None Seen, Rare /lpf [facility] Nitrite, Urine Negative Invalid Interpretation Code Negative [facility] RBCs, Urine 2 /hpf Invalid Interpretation Code 0 - 3 [facility] Squamous Epithelial 3 /hpf Invalid Interpretation Code 0 - 4 [facility] Urine, bacteria in sediment Rare Abnormal None Seen /hpf [facility] Urine, clarity Clear Invalid Interpretation Code Clear [facility] Urine, color Yellow Invalid Interpretation Code Colorless, Yellow [facility] Urine, glucose presence Negative Invalid Interpretation Code Negative mg/dL [facility] Urine, ketones presence Negative Invalid Interpretation Code Negative mg/dL [facility] Urine, leukocyte esterase presence Negative Invalid Interpretation Code Negative [facility] Urine, pH 5.0 [pH] Invalid Interpretation Code 5.0 - 7.0 [facility] Urine, protein Negative Invalid Interpretation Code Negative mg/dL [facility] Urine, specific gravity 1.006 1 Invalid Interpretation Code 1.005 - 1.025 [facility] Urine, urobilinogen <2.0 Invalid Interpretation Code <2.0 mg/dL [facility] WBCs, Urine 1 /hpf Invalid Interpretation Code 0 - 5 [facility] Urinalysis Microscopic examinat ion is performed on all urinalysis samples and only positive findings are reported. The test for blood on the chemical analytic portion of urinalysis may also be positive due to hemoglobinuria and myoglobinuria and if red blood cells are present they are quantified by microscopic examination. Invalid Interpretation Code [facility] Vital Signs Date Time Vital Sign Value Performing Clinician Facility 04-07-2024 16:14-0500 Heart rate 93 /min Peter Escalera MD Work Phone: [facility] 04-07-2024 16:14-0500 SaO2% (BldA) [Mass fraction] 100 % Peter Escalera MD Work Phone: [facility] 04-07-2024 13:10-0500 Body height 157.5 cm Peter Escaelra MD Work Phone: [facility] 04-07-2024 13:10-0500 Body mass index (BMI) [Ratio] 22.86 kg/m2 Peter Escalera MD Work Phone: [facility] 04-07-2024 13:10-0500 Body temperature 97.9 [degF] Peter Escalera MD Work Phone: [facility] 04-07-2024 13:10-0500 Body weight 56.7 kg Peter Escalera MD Work Phone: [facility] 04-07-2024 13:10-0500 Diastolic blood pressure 88 mm[Hg] Peter Escalera MD Work Phone: [facility] 04-07-2024 13:10-0500 Respiratory rate 16 /min Peter Escalera MD Work Phone: [facility] 04-07-2024 13:10-0500 Systolic blood pressure 139 mm[Hg] Peter Escalera MD Work Phone: [facility] 01-19-2024 11:30-0500 Diastolic blood pressure 63 mm[Hg] Sabrina Dee MD, MPH Work Phone: [facility] 01-19-2024 11:30-0500 Heart rate 73 /min Sabrina eDe MD, MPH Work Phone: [facility] 01-19-2024 11:30-0500 Respiratory rate 18 /min Sabrina Dee MD, MPH Work Phone: [facility] 01-19-2024 11:30-0500 SaO2% (BldA) [Mass fraction] 99 % Sabrina Dee MD, MPH Work Phone: [facility] 01-19-2024 11:30-0500 Systolic blood pressure 120 mm[Hg] Sabrina Dee MD, MPH Work Phone: [facility] 01-19-2024 09:54-0500 Body temperature 98.01 [degF] Sabrina Dee MD, MPH Work Phone: [facility] 01-07-2024 16:13-0400 Diastolic blood pressure 41 mm[Hg] [facility] 01-07-2024 16:13-0400 Heart rate 82 /min [facility] 01-07-2024 16:13-0400 Respiratory rate 15 /min [facility] 01-07-2024 16:13-0400 Systolic blood pressure 127 mm[Hg] [facility] 01-07-2024 14:14-0400 Body height 157.5 cm [facility] 01-07-2024 14:14-0400 Body mass index (BMI) [Ratio] 21.95 kg/m2 [facility] 01-07-2024 14:14-0400 Body temperature 98.1 [degF] [facility] [employer] 10-31-2024 14:14-0400 Body weight 54.43 kg [facility] 01-07-2024 14:14-0400 SaO2% (BldA) [Mass fraction] 99 % [facility] 09-29-2023 21:39-0400 Heart rate 102 /min [facility] [employer] 09-29-2023 21:29-0400 SaO2% (BldA) [Mass fraction] 96 % [facility] 09-29-2023 20:32-0400 Diastolic blood pressure 94 mm[Hg] [facility] 09-29-2023 20:32-0400 Systolic blood pressure 124 mm[Hg] [facility] 09-29-2023 18:57-0400 Body height 157.5 cm [facility] 09-29-2023 18:57-0400 Body mass index (BMI) [Ratio] 22.86 kg/m2 [facility] 09-29-2023 18:57-0400 Body temperature 98.1 [degF] [facility] [employer] 09-29-2023 18:57-0400 Body [facility] 56.7 [facility] 09-29-2023 18:57-0400 Respiratory rate 18 /min [facility] 09-08-2023 09:00-0400 Diastolic blood pressure 54 mm[Hg] Sabrina Dee MD, MPH Work Phone: [facility] 09-08-2023 09:00-0400 Heart rate 83 /min Sabrina Dee MD, MPH Work Phone: [facility] 09-08-2023 09:00-0400 Respiratory rate 13 /min Sabrina Dee MD, MPH Work Phone: [facility] 09-08-2023 09:00-0400 SaO2% (BldA) [Mass fraction] 95 % Sabrina Dee MD, MPH Work Phone: [facility] 09-08-2023 09:00-0400 Systolic blood pressure 94 mm[Hg] Sabrina Dee MD, MPH Work Phone: [facility] 09-08-2023 08:04-0400 Body temperature 97.7 [degF] Sabrina Dee MD, MPH Work Phone: [facility] 09-08-2023 06:43-0400 Body height 157.5 cm Sabrina Dee MD, MPH Work Phone: [facility] 05-11-2023 09:01-0500 Body height 157.5 cm Sabrina Dee MD, MPH Work Phone: [facility] 05-11-2023 09:01-0500 Body mass index (BMI) [Ratio] 21 kg/m2 Sabrina Dee MD, MPH Work Phone: [facility] 05-11-2023 09:01-0500 Body weight 52.07 kg Sabrina Dee MD, MPH Work Phone: [facility] 05-11-2023 09:01-0500 Diastolic blood pressure 48 mm[Hg] Sabrina Dee MD, MPH Work Phone: [facility] 05-11-2023 09:01-0500 Heart rate 107 /min Sabrina Dee MD, MPH Work Phone: [facility] 05-11-2023 09:01-0500 SaO2% (BldA) [Mass fraction] 97 % Sabrina Dee MD, MPH Work Phone: [facility] 05-11-2023 09:01-0500 Systolic blood pressure 110 mm[Hg] Sabrina Dee MD, MPH Work Phone: [facility] 04-18-2023 17:39-0500 Diastolic blood pressure 79 mm[Hg] [facility] 04-18-2023 17:39-0500 Heart rate 114 /min [facility] 04-18-2023 17:39-0500 Respiratory rate 16 /min [facility] 04-18-2023 17:39-0500 SaO2% (BldA) [Mass fraction] 98 % [facility] 04-18-2023 17:39-0500 Systolic blood pressure 168 mm[Hg] [facility] 04-18-2023 15:29-0500 Body height 157.48 cm [facility] 04-18-2023 15:29-0500 Body temperature 99.3 [degF] [facility] 04-18-2023 15:29-0500 Body weight 51.25 kg [facility] 04-11-2023 23:50-0500 Diastolic blood pressure 82 mm[Hg] [facility] 04-11-2023 23:50-0500 Heart rate 106 /min [facility] 04-11-2023 23:50-0500 SaO2% (BldA) [Mass fraction] 97 % [facility] 04-11-2023 23:50-0500 Systolic blood pressure 151 mm[Hg] [facility] 04-11-2023 22:25-0500 Respiratory rate 18 /min [facility] 04-11-2023 21:20-0500 Body height 157.48 cm [facility] 04-11-2023 21:20-0500 Body temperature 97.2 [degF] [facility] 04-11-2023 21:20-0500 Body weight 52 kg [facility] 04-02-2023 19:20-0500 Diastolic blood pressure 74 mm[Hg] [facility] 04-02-2023 19:20-0500 Heart rate 91 /min [facility] 04-02-2023 19:20-0500 Respiratory rate 18 /min [facility] 04-02-2023 19:20-0500 SaO2% (BldA) [Mass fraction] 96 % [facility] 04-02-2023 19:20-0500 Systolic blood pressure 137 mm[Hg] [facility] 04-02-2023 13:45-0500 Body height 157.48 cm [facility] 04-02-2023 13:45-0500 Body temperature 97.6 [degF] [facility] 04-02-2023 13:45-0500 Body weight 54 kg [facility] 11-09-2022 16:30-0400 Diastolic blood pressure 81 mm[Hg] [facility] 11-09-2022 16:30-0400 Heart rate 78 /min [facility] 11-09-2022 16:30-0400 Respiratory rate 18 /min [facility] 11-09-2022 16:30-0400 SaO2% (BldA) [Mass fraction] 99 % [facility] 11-09-2022 16:30-0400 Systolic blood pressure 141 mm[Hg] [facility] 11-09-2022 13:47-0400 Body height 160.02 cm [facility] 11-09-2022 13:47-0400 Body temperature 98.2 [degF] [facility] 11-09-2022 13:47-0400 Body weight 54.2 kg [facility] 08-12-2022 13:15-0400 Diastolic blood pressure 68 mm[Hg] Sabrina Dee MD, MPH Work Phone: [facility] 08-12-2022 13:15-0400 Heart rate 67 /min Sabrina Dee MD, MPH Work Phone: [facility] 08-12-2022 13:15-0400 Respiratory rate 22 /min Sabrina Dee MD, MPH Work Phone: [facility] 08-12-2022 13:15-0400 SaO2% (BldA) [Mass fraction] 99 % Sabrina Dee MD, MPH Work Phone: [facility] 08-12-2022 13:15-0400 Systolic blood pressure 142 mm[Hg] Sabrina Dee MD, MPH Work Phone: [facility] 08-12-2022 11:45-0400 Body temperature 97.81 [degF] Sabrina Dee MD, MPH Work Phone: [facility] 08-12-2022 10:34-0400 Body height 157.5 cm Sarbina Dee MD, MPH Work Phone: [phone] [address] 06-16-2022 10:52-0400 Body mass index (BMI) [Ratio] 23.41 kg/m2 Sabrina Dee MD, MPH Work Phone: [phone] [address] 06-16-2022 10:52-0400 Body weight 58.06 kg Sabrina Dee MD, MPH Work Phone: 2([phone] [address] 06-16-2022 10:52-0400 Diastolic blood pressure 68 mm[Hg] Sabrina Dee MD, MPH Work Phone: [facility] 06-16-2022 10:52-0400 Heart rate 83 /min Sabrina Dee MD, MPH Work Phone: [facility] 06-16-2022 10:52-0400 SaO2% (BldA) [Mass fraction] 98 % Sabrina Dee MD, MPH Work Phone: [facility] 06-16-2022 10:52-0400 Systolic blood pressure 122 mm[Hg] Sabrina Dee MD, MPH Work Phone: [phone] [address] 03-22-2022 16:51-0500 Diastolic blood pressure 61 mm[Hg] [facility] 03-22-2022 16:51-0500 Heart rate 98 /min [facility] 03-22-2022 16:51-0500 Respiratory rate 20 /min [facility] 03-22-2022 16:51-0500 SaO2% (BldA) [Mass fraction] 98 % [facility] 03-22-2022 16:51-0500 Systolic blood pressure 149 mm[Hg] [facility] 03-22-2022 14:59-0500 Body height 157.48 cm [facility] 03-22-2022 14:59-0500 Body temperature 97.9 [degF] [facility] 03-22-2022 14:59-0500 Body weight 56 kg [facility] 12-16-2021 11:53-0400 Body height 157.5 cm Sabrina Dee MD, MPH Work Phone: [facility] 12-16-2021 11:53-0400 Body mass index (BMI) [Ratio] 22.5 kg/m2 Sabrina Dee MD, MPH Work Phone: [facility] 12-16-2021 11:53-0400 Body weight 55.79 kg Sabrina Dee MD, MPH Work Phone: [facility] 12-16-2021 11:53-0400 Diastolic blood pressure 72 mm[Hg] Sabrina Dee MD, MPH Work Phone: [facility] 12-16-2021 11:53-0400 Heart rate 80 /min Sabrina Dee MD, MPH Work Phone: [facility] 12-16-2021 11:53-0400 SaO2% (BldA) [Mass fraction] 98 % Sabrina Dee MD, MPH Work Phone: [facility] 12-16-2021 11:53-0400 Systolic blood pressure 118 mm[Hg] Sabrina Dee MD, MPH Work Phone: [facility] 10-09-2021 20:00-0400 Body temperature 98.3 [degF] [facility] 10-09-2021 20:00-0400 Diastolic blood pressure 68 mm[Hg] [facility] 10-09-2021 20:00-0400 Heart rate 86 /min [facility] 10-09-2021 20:00-0400 Respiratory rate 20 /min [facility] 10-09-2021 20:00-0400 SaO2% (BldA) [Mass fraction] 100 % [facility] 10-09-2021 20:00-0400 Systolic blood pressure 110 mm[Hg] [facility] 10-09-2021 14:19-0400 Body height 157.48 cm [facility] 10-09-2021 14:19-0400 Body weight 56.69 kg [facility] 10-04-2021 19:00-0400 Diastolic blood pressure 66 mm[Hg] [facility] 10-04-2021 19:00-0400 Heart rate 72 /min [facility] 10-04-2021 19:00-0400 Respiratory rate 16 /min [facility] 10-04-2021 19:00-0400 SaO2% (BldA) [Mass fraction] 96 % [facility] 10-04-2021 19:00-0400 Systolic blood pressure 110 mm[Hg] [facility] 10-04-2021 15:16-0400 Body temperature 97.9 [degF] [facility] 10-04-2021 15:15-0400 Body height 157.48 cm [facility] 10-04-2021 15:15-0400 Body weight 54.5 kg [facility] 09-25-2021 19:58-0400 Heart rate 82 /min [facility] 09-25-2021 18:04-0400 Body temperature 98.1 [degF] [facility] 09-25-2021 18:00-0400 Body height 157.48 cm [facility] 09-25-2021 18:00-0400 Body weight 55.5 kg [facility] 09-25-2021 18:00-0400 Diastolic blood pressure 107 mm[Hg] [facility] 09-25-2021 18:00-0400 Respiratory rate 18 /min [facility] 09-25-2021 18:00-0400 SaO2% (BldA) [Mass fraction] 98 % [facility] 09-25-2021 18:00-0400 Systolic blood pressure 141 mm[Hg] [facility] 08-11-2021 18:12-0400 Heart rate 86 /min [facility] 08-11-2021 18:00-0400 Diastolic blood pressure 69 mm[Hg] [facility] 08-11-2021 18:00-0400 Respiratory rate 20 /min [facility] 08-11-2021 18:00-0400 SaO2% (BldA) [Mass fraction] 98 % [facility] 08-11-2021 18:00-0400 Systolic blood pressure 114 mm[Hg] [facility] 08-11-2021 16:06-0400 Body height 170.18 cm [facility] 08-11-2021 16:06-0400 Body mass index (BMI) [Ratio] 19.6 kg/m2 [facility] 08-11-2021 16:06-0400 Body temperature 97.9 [degF] [facility] 08-11-2021 16:06-0400 Body weight 57 kg [facility] 03-19-2021 14:30-0500 Body height 157.48 cm Marya Ginty Other [facility] [employer] Other 03-19-2021 14:30-0500 Body mass index (BMI) [Ratio] 24.69 kg/m2 Marya Ginty Other [employer] Other 03-19-2021 14:30-0500 Body temperature 96 [degF] Marya Ginty Other [employer] Other 03-19-2021 14:30-0500 Body weight 61.24 kg Marya Ginty Other [employer] Other 03-19-2021 14:30-0500 Respiratory rate 63 /min Marya Almonte Other [employer] Other 03-19-2021 14:30-0500 SaO2% (BldA) [Mass fraction] 97 % Marya Gillana Other [employer] Other 03-26-2020 21:05-0500 Pulse Oximetry 100 % [facility] [place] 03-26-2020 21:01-0500 BP Diastolic 68 mm[Hg] [facility] [place] 03-26-2020 21:01-0500 BP Systolic 152 mm[Hg] [facility] , [place] 03-26-2020 17:32-0500 BMI (Body Mass Index) 22.86 kg/m2 [facility], [place] 03-26-2020 17:32-0500 Body weight 56.7 kg [facility] , [place] 03-26-2020 17:32-0500 Height 157.5 cm [place], [place] 03-26-2020 17:32-0500 Pulse (Heart Rate) 90 /min [facility] [place] 03-26-2020 17:32-0500 Respiratory Rate 18 /min [facility] [place] 03-26-2020 12:39-0500 Body Temperature 98.71 [degF] [facility] [place] 08-25-2019 08:30-0400 Body Temperature 98.01 [degF] [facility] [place] 08-25-2019 08:30-0400 BP Diastolic 75 mm[Hg] Rajeev [facility] [place] 08-25-2019 08:30-0400 BP Systolic 117 mm[Hg] Rajeev [facility] [place] 08-25-2019 08:30-0400 Pulse (Heart Rate) 84 /min Rajeev Cantor [facility] [place] 08-25-2019 08:30-0400 Pulse Oximetry 97 % Rajeev Sakshi [facility] [place] 08-25-2019 08:30-0400 Respiratory Rate 16 /min [facility], [place] 08-25-2019 05:30-0400 BMI (Body Mass Index) 25.88 kg/m2 Rajeev Sakshi [facility], [place] 08-25-2019 05:30-0400 Body weight 64.18 kg Rajeev Sakshi [facility] , [place] 08-22-2019 16:00-0400 Height 157.5 cm Rajeev [place], [place] 03-04-2018 13:09-0500 BP Diastolic 69 mm[Hg] [facility] 03-04-2018 13:09-0500 BP Systolic 108 mm[Hg] [facility] 03-04-2018 13:09-0500 Pulse (Heart Rate) 79 /min [facility] 03-04-2018 13:09-0500 Pulse Oximetry 99 % [facility] 03-04-2018 13:09-0500 Respiratory Rate 16 /min [facility] 03-04-2018 11:01-0500 BMI (Body Mass Index) 22.86 kg/m2 [facility] 03-04-2018 11:01-0500 Body Temperature 98.6 [degF] [facility] 03-04-2018 11:01-0500 Height 157.5 cm [facility] 03-04-2018 11:01-0500 Weight 56.7 kg [facility] 08-24-2017 20:58-0400 BP Diastolic 64 mm[Hg] [facility] 08-24-2017 20:58-0400 BP Systolic 126 mm[Hg] [facility] 08-24-2017 20:58-0400 Pulse (Heart Rate) 67 /min [facility] 08-24-2017 20:58-0400 Pulse Oximetry 98 % [facility] 08-24-2017 20:58-0400 Respiratory Rate 18 /min [facility] 08-24-2017 13:41-0400 BMI (Body Mass Index) 21.58 kg/m2 [facility] 08-24-2017 13:41-0400 Body Temperature 98.29 [degF] [facility] 08-24-2017 13:41-0400 Height 157.5 cm Errol Walton [facility] 08-24-2017 13:41-0400 Weight 53.52 kg Errol Walton [facility] 06-09-2017 09:32-0400 BP Diastolic 73 mm[Hg] [facility] 06-09-2017 09:32-0400 BP Systolic 106 mm[Hg] [facility] 06-09-2017 09:32-0400 Pulse (Heart Rate) 86 /min [facility] 06-09-2017 09:32-0400 Pulse Oximetry 99 % [facility] 06-09-2017 09:32-0400 Respiratory Rate 16 /min [facility] 06-09-2017 07:20-0400 BMI (Body Mass Index) 21.87 kg/m2 [facility] 06-09-2017 07:20-0400 Body Temperature 98.4 [degF] [facility] 06-09-2017 07:20-0400 Height 157.5 cm [facility] 06-09-2017 07:20-0400 Weight 54.23 kg [facility] 05-15-2017 08:11-0500 Body Temperature 98.01 [degF] [facility] 05-15-2017 08:11-0500 BP Diastolic 69 mm[Hg] David Paige [facility] 05-15-2017 08:11-0500 BP Systolic 116 mm[Hg] David Paige [facility] 05-15-2017 08:11-0500 Pulse (Heart Rate) 76 /min David Paige [facility] 05-15-2017 08:11-0500 Pulse Oximetry 95 % David Paige [facility] 05-15-2017 08:11-0500 Respiratory Rate 15 /min David Paige [facility] 05-14-2017 12:58-0500 BMI (Body Mass Index) 21.95 kg/m2 David Paige [facility] 05-14-2017 12:58-0500 Height 157.5 cm David Paige [facility] 05-14-2017 12:58-0500 Weight 54.43 kg David Gibson [facility] Encounters Encounter Date Encounter Type Care Provider Facility Start: 06-27-2024 End: 06-27-2024 Emergency department patient visit [facility] Start: 06-15-2024 End: 06-15-2024 Emergency department patient visit [facility] Start: 05-31-2024 End: 05-31-2024 Emergency department patient visit [facility] Start: 04-07-2024 End: 04-07-2024 Emergency department patient visit Peter Escalera MD Work Phone: [facility] Comment on above: Acute pancreatitis w ithout infection or necrosis, unspecified pancreatitis type (Primary Dx); Acute recurrent pancreatitis Start: 03-18-2024 End: 03-18-2024 Emergency department patient visit [facility] Start: 01-19-2024 ambulatory SABRINA hamilton:[facility] Start: 01-19-2024 End: 01-19-2024 Subsequent hospital visit by physician Sabrina Dee MD, MPH Work Phone: [facility] Start: 01-14-2024 End: 01-14-2024 Emergency department patient visit [facility] Start: 01-07-2024 End: 01-07-2024 Emergency department patient visit [facility] ED Comment on above: Acute on chronic see creatitis (HCC) (Primary Dx); Abdominal pain, epigastric Start: 12-29-2023 End: 12-29-2023 Emergency department patient visit [facility] Start: 09-29-2023 End: 09-29-2023 Emergency department patient visit [facility] ED Comment on above: Hypokalemia (Primary Dx); Acute recurrent pancreatitis Start: 09-08-2023 End: 09-08-2023 Subsequent hospital visit by physician Sabrina Dee MD, MPH Work Phone: [facility] Start: 09-08-2023 ambulatory SABRINA jones:[facility] Start: 05-22-2023 Telephone encounter [facility] Start: 05-11-2023 Chart abstracting Scanning Pro vider External [facility] Start: 05-11-2023 End: 05-11-2023 Office outpatient visit 40 minutes Sabrina Dee MD, MPH Work Phone: [facility] [place] Comment on above: 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 (Primary Dx); Encounter for screening for malignant neoplasm of colon; Other osteoporosis without current pathological fracture; Epigastric pain; Smoking; Gastroesophageal reflux disease without esophagitis Start: 05-11-2023 ambulatory SABRINA DEE Fa cility:[facility] Start: 04-18-2023 End: 04-18-2023 Emergency department patient visit [facility] Work Phone: Start: 04-16-2023 Telephone encounter [facility] Start: 04-11-2023 End: 04-12-2023 Emergency department patient visit [facility] Work Phone: Start: 04-02-2023 End: 04-02-2023 Emergency department patient visit [facility] Work Phone: Start: 11-09-2022 End: 11-09-2022 Emergency department patient visit [facility] Work Phone: Start: 08-12-2022 End: 08-12-2022 Subsequent hospital visit by physician Sabrina Dee MD, MPH Work Phone: [facility] Start: 06-16-2022 End: 06-16-2022 Office outpatient visit 40 minutes Sabrina Dee MD, MPH Work Phone: [facility] [place] Comment on above: Osteoporosis without current pathological fracture, unspecified osteoporosis type (Primary Dx); Alcohol-induced chronic pancreatitis Start: 06-13-2022 End: 06-13-2022 ambulatory ARIC ARCINIEGA . Facility:[facility] Start: 03-29-2022 End: 03-29-2022 ambulatory ELENITA ROLLINS . Facility:[facility] Start: 03-22-2022 End: 03-22-2022 Emergency department patient visit [facility] Work Phone: Start: 03-19-2022 End: 03-19-2022 ambulatory MONIK PARKINSON . Facility:[facility] Start: 01-28-2022 End: 01-28-2022 Subsequent hospital visit by physician Sabrina Dee MD, MPH Work Phone: [facility] Start: 01-27-2022 End: 01-27-2022 Subsequent hospital visit by physician Sabrina Dee MD, MPH Work Phone: [facility] Comment on above: Arrived Start: 01-15-2022 End: 01-15-[address] HELLEN KITCHEN . Facility:[facility] Start: 12-16-2021 End: 12-16-2021 Office outpatient visit 25 minutes Sabrina Dee MD, MPH Work Phone: [facility] [place] Comment on above: Recurrent acute panc reatitis (Primary Dx); History of smoking 25-50 pack years; Alcohol-induced chronic pancreatitis; Epigastric pain; Encounter for screening colonoscopy Start: 12-13-2021 End: 12-14-2021 ambulatory NICK COY Facility:[facility] Start: 12-05-2021 End: 12-05-[address] RAJEEV KELLOGG Facility:[facility] Start: 10-11-2021 End: 10-12-[address] RAJEEV KELLOGG Facility:[facility] Start: 10-04-2021 End: 10-04-2021 Emergency department patient visit [facility] Start: 09-30-2021 End: 09-30-2021 ambulatory NAT MAXWELL . Facility:[facility] Start: 09-25-2021 End: 09-25-2021 Emergency department patient visit [facility] Start: 09-17-2021 End: 09-17-[address] RAJEEV KELLOGG Facility:[facility] Start: 08-26-2021 End: 08-26-2021 ambulatory NICK COY Facility:[facility] Start: 08-22-2021 End: 08-22-[address] TRI HANSON Facility:[facility] Start: 08-13-2021 End: 08-13-2021 ambulatory AGUSTIN MADRIGAL Facility:[facility] Start: 08-11-2021 End: 08-11-2021 Emergency department patient visit [facility] Start: 07-31-2021 End: 07-31-2021 ambulatory YANNI Merrill BRIA Facility:[facility] Start: 07-19-2021 End: 07-19-2021 ambulatory LYNNE PERDOMO Facility:[facility] Start: 03-19-2021 End: 03-19-2021 ambulatory Marya Almonte Other [employer] Other Start: 03-19-2021 Office outpatient visit 15 minutes Marya Almonte [facility] Start: 05-22-2020 End: 05-22-2020 Orders Only Izabela Grant Work Phone: [facility] Start: 03-26-2020 End: 03-26-2020 Emergency department patient visit [facility] ED Comment on above: Acute biliary pancre atitis, unspecified complication status (Primary Dx) Start: 08-22-2019 End: 08-25-2019 Evaluation and management of inpatient Rajeev Cantor Work Phone: [facility] Comment on above: Acute pancreatitis, unspecified complication status, unspecified pancreatitis type (Primary Dx); Pain of upper abdomen Start: 03-08-2018 End: 03-09-2018 Evaluation and management of inpatient [facility] Start: 03-04-2018 End: 03-04-2018 Patient encounter procedure [facility] Start: 03-04-2018 End: 03-04-2018 Emergency department patient visit Keerthi Nguyen Work Phone: [facility] Comment on above: Acute on chronic see creatitis (HCC) (Primary Dx) Start: 08-24-2017 End: 08-24-2017 Emergency department patient visit [facility] Start: 08-24-2017 End: 08-24-2017 Emergency department patient visit Errol Walton Work Phone: [facility] Start: 06-09-2017 End: 06-09-2017 Emergency department patient visit [facility] Start: 06-09-2017 End: 06-09-2017 Emergency department patient visit Joana Mendes Work Phone: [facility] Start: 05-14-2017 End: 05-15-2017 Patient encounter procedure ALEXANDER MAGDALENA [facility] Start: 05-14-2017 End: 05-15-2017 Emergency department patient visit David Gibson Work Phone: [facility] Medical Observation Procedures Date Procedure Procedure Detail Performing Clinician Start: 04-07-2024 Urnls dip stick/tabl et rgnt auto w/o microscopy Peter Escalera MD Work Phone: Start: 04-07-2024 End: 04-07-2024 Basic metabolic panel calcium total Peter Escalera MD Work Phone: Start: 04-07-2024 Hepatic function panel Peter Escalera MD Work Phone: Start: 04-07-2024 Ct abdomen & pelvis w/contrast material Peter Escalera MD Work Phone: Start: 01-19-2024 UPPER EUS [...] Visit [facility] [address] [address] Sabrina Dee MD, MPH [address] [place] [address] [facility] [place] Start: 11-08-2023 COVID-19 Vaccine ( season) COVID-19 Vaccine ( season) [facility] Start: 11-08-2023 COVID-19 Vaccine ( season) COVID-19 Vaccine ( season) [facility] Start: 11-08-2023 COVID-19 VACCINE ( season) COVID-19 VACCINE () [facility] Start: 11-08-2023 Influenza vaccination INFLUENZA VACCINE (#1) [facility] Start: 10-08-2023 Influenza vaccination Flu vaccine (#1) [facility] Start: 05-25-2023 End: 05-25-2023 Patient encounter procedure 05/25/2023 1:00 PM EDT Office Visit [facility] [address] [place] [address] Orlando Al MD [address] [place] [address] [facility] Start: 05-19-2023 End: 05-10-2024 UPPER EUS UPPER EUS GI/Bronch Routine Alcohol-induced chronic pancreatitis Expected: 05/19/2023, Expires: 05/10/2024 [facility] Comment on above: Expected: 05/19/2023, Expires: Start: 05-11-2023 End: 05-10-2024 VITAMIN D (25-HYDROXY,TOTAL) VITAMIN D (25-HYDROXY,TOTAL) Lab Routine Other osteoporosis without current pathological fracture Expected: 05/11/2023, Expires: 05/10/2024 [facility] Comment on above: Expected: 05/11/2023, Expires: Start: 04-11-2023 Computed tomography of abdomen and pelvis with contrast CT abdomen pelvis w con [facility] Start: 04-11-2023 CT Abdomen and Pelvis W contrast IV [facility] Start: 03-16-2023 End: 03-16-2023 Patient encounter procedure 03/16/2023 Office Visit Gastroenterology Sabrina Dee MD, MPH [address] [place] [address] [facility] [place] Start: 11-07-2022 COVID-19 VACCINE () COVID-19 VACCINE () [facility] Start: 11-07-2022 Influenza vaccination [facility] Start: 09-25-2022 Lipid panel LIPID SCREENING [facility] Start: 07-29-2022 End: 06-17-2023 UPPER EUS UPPER EUS GI/Bronch Routine Alcohol-induced chronic pancreatitis Expected: 07/29/2022, Expires: 06/17/2023 [facility] Comment on above: Expected: 07/29/2022, Expires: 4 Start: 07-28-2022 End: 01-28-2023 Screening colonoscopy SCREENING COLONOSCOPY GI/Bronch Routine Encounter for screening colonoscopy Expected: 07/28/2022, Expires: 01/28/2023 [facility] Comment on above: Expected: 07/28/2022, Expires: 3 Start: 07-28-2022 End: 07-28-2022 Patient encounter procedure 07/28/2022 Appointment Endoscopy Julia Tyler MD [address] [address] [facility] Endoscopy Department Start: 06-16-2022 End: 12-16-2022 Screening colonoscopy SCREENING COLONOSCOPY GI/Bronch Routine Encounter for screening colonoscopy Expected: 06/16/2022, Expires: 12/16/2022 [facility] Comment on above: Expected: 06/16/2022, Expires: 3 Start: 06-16-2022 End: 06-16-2022 Patient encounter procedure 06/16/2022 Office Visit Gastroenterology Sabrina Dee MD, MPH [address] [place] [id number] [facility] [place] Start: 03-22-2022 Bacteria identified in Urine by Culture [facility] Start: 01-28-2022 End: 01-28-2022 Patient encounter procedure 01/28/2022 Appointment Endoscopy Sabrina Dee MD, MPH [address] [place] [phone] [facility] Start: 01-28-2022 Subsequent hospital visit by physician 01/28/2022 Hospital Encounter Endoscopy Sabrina Dee MD, MPH [address] [place] [phone] Arrived [facility] Comment on above: Arrived Start: 01-14-2022 End: 12-16-2022 UPPER EUS UPPER EUS GI/Bronch Routine Recurrent acute pancreatitis Expected: 01/14/2022, Expires: 12/16/2022 [facility] Comment on above: Expected: 01/14/2022, Expires: 3 Start: 12-16-2021 End: 12-16-2022 Bone density scan BONE DENSITY AXIAL (HIP, PELVIS, SPINE) Imaging Routine Recurrent acute pancreatitis History of smoking 25-50 pack years Expected: 12/16/2021, Expires: 12/16/2022 [facility] Comment on above: Expected: 12/16/2021, Expires: 3 Start: 11-07-2021 Influenza vaccination INFLUENZA VACCINE (#1) [facility] Start: 10-09-2021 CT of abdomen and pelvis without contrast CT abdomen pelvis wo con [facility] Start: 10-09-2021 End: 10-09-2021 Emergency department patient visit Departed Emergency [facility] Start: 11-13-2020 COVID-19 VACCINE (3 - Booster for Pfizer series) COVID-19 VACCINE (3 - Booster for Pfizer series) [facility] Start: 11-08-2019 Influenza vaccination [place], [place] Start: 11-08-2019 Influenza vaccination given Sequential Influenza Vaccine (#1) [facility] Start: 06-21-2019 Administration of herpes zoster vaccine [facility] Vacc[facility] Start: 06-21-2019 Administration of varicella zoster vaccine Zoster (Shingles) Vaccine (1 of 2) [facility] Start: 06-21-2019 Screening for malignant neoplasm of breast Breast cancer screen [place], [place] Start: 06-21-2019 Screening for malignant neoplasm of colon [place], [place] Start: 06-21-2019 Screening for malignant neoplasm of lung LUNG CANCER SCREENING [facility] Start: 06-21-2019 Shingles Vaccine (1 of 2) Shingles Vaccine (1 of 2) [facility] Start: 06-21-2019 Zoster vaccine hzv live for subcutaneous use ZOSTER (SHINGLES) VACCINE (1 of 2) [facility] Start: 11-07-2017 Influenza vaccination [facility] Start: 11-07-2016 Influenza vaccination SEQUENTIAL INFLUENZA VACCINE (#1) [facility] Start: 12-10-2014 Screening for malignant neoplasm of cervix PAP SMEAR [facility] Start: 2014 Screening for malignant neoplasm of colon [facility] Start: 01-01-2014 Screening for malignant neoplasm of breast Breast cancer screen [facility] Start: 01-01-2013 Screening for malignant neoplasm of breast MAMMOGRAM SCREENING DISCUSSION [facility] Start: 01-01-2013 Screening mammography Mammogram [facility] Start: 2009 Lipid panel [facility] Start: 1990 Screening for malignant neoplasm of cervix [facility] Start: 1988 DTaP,Tdap and Td Vaccines (1 - Tdap) DTaP,Tdap and Td Vaccines (1 - Tdap) [facility] Start: 1988 DTaP/Tdap/Td vaccine (1 - Tdap) DTaP/Tdap/Td vaccine (1 - Tdap) [facility] Start: 1988 Hepatitis B vaccination HEP B VACCINE (1 of 3 - 19+ 3-dose series) [facility] Start: 1988 Hepatitis B vaccine (1 of 3 - 19+ 3-dose series) Hepatitis B vaccine (1 of 3 - 19+ 3-dose series) [facility] Start: 1988 Third diphtheria, tetanus and acellular pertussis (DTaP) vaccination TDAP (ADULT) [facility] Start: 06-21-1987 Hepatitis C antibody, confirmatory test Hepatitis C Screening [facility] Start: 06-21-1987 Hepatitis C screening Hepatitis C screen [facility] Start: 06-21-1987 Tetanus vaccination TETANUS [facility] Start: 1985 COVID-19 Vaccine (1 of 2) COVID-19 Vaccine (1 of 2) [facility] Start: 1984 HIV screening [facility] Start: 1981 Depression Screen Depression Screen [facility] Start: 1981 [facility] Screening [facility] Start: 06-21-1975 Pneumococcal 0-64 years Vaccine (1 of 1 - PPSV23) Pneumococcal 0-64 years Vaccine (1 of 1 - PPSV23) [place] Start: 06-21-1975 Pneumococcal 0-64 years Vaccine (1 of 2 - PCV) Pneumococcal 0-64 years Vaccine (1 of 2 - PCV) [facility] Start: 06-21-1975 PNEUMOCOCCAL VACCINE SERIES (1 - PCV) PNEUMOCOCCAL VACCINE SERIES (1 - PCV) [facility] Start: 06-21-1975 PNEUMOCOCCAL VACCINE SERIES (1 of 2 - PCV) PNEUMOCOCCAL VACCINE SERIES (1 of 2 - PCV) [facility] Start: 1972 History and physical examination, annual for health maintenance Wellness Visit [facility] Start: 1969 COVID-19 Vaccine (#1) COVID-19 Vaccine (#1) [facility] Start: 1969 Hepatitis B vaccination HEP B VACCINE (1 of 3 - 3-dose series) [facility] Start: 1969 Hepatitis B vaccine (1 of 3 - 3-dose series) Hepatitis B vaccine (1 of 3 - 3-dose series) [facility] Start: 1969 Hepatitis C screening [facility] Start: 1969 Tetanus vaccination [facility] Start: 1969 Tobacco Counseling Tobacco Counseling [facility] CBC auto differential CBC auto d ifferential Lab Routine Daily until discontinued starting 08/23/2019, 3 [facility] Comment on above: Daily until discontinued starting 2019, [address] ABDOMEN PELVIS W IV CONTRAST Additional Contrast? None CT ABDOMEN PELVIS W IV CONTRAST Additional Contrast? None Imaging STAT 03/26/2020 3:01 PM EST [facility] EKG 12 Lead EKG 12 Lead ECG Routine 01/07/2024 2:42 PM EDT Efra Shirley Mae'statum [employer]insandra [facility] Work Phone: IgG Subclasses IgG Subclasses A dd-On 05/14/2017 2:06 PM [facility] Initiate Oxygen Therapy Protocol Initiate Oxygen Therapy Protocol Respiratory Care Routine Daily until discontinued starting 08/22/2019 [facility] ORJAMES Comment on above: Daily until discontinued starting 2019 Lipase Lipase Lab Routi ne Daily until discontinued starting 08/23/2019, 3 completed [facility] ORJAMES Comment on above: Daily until discontinued starting 2019, 3 completed Patient Education [facility] Work Phone: Patient referral [facility] Work Phone: End: 08-22-2019 Pulse Oximetry Spot Check Pulse Oximetry Spot Check Respiratory Care Routine One Time for 1 Occurrences starting 08/22/2019 until 08/22/2019 [facility] Comment on above: One Time for 1 Occurrences starting 08/07 until 08/22/2019 Screening colonoscopy SCREENING COLONOSCOPY GI/Bronch Routine Encounter for screening colonoscopy 01/28/2022 9:43 AM [facility] Screening colonoscopy SCREENING COLONOSCOPY GI/Bronch Routine Encounter for screening for malignant neoplasm of colon Ordered: 05/11/2023 [facility] Comment on above: Ordered: 05/11/2023 End: 04-07-2024 SPECIMEN REJECTION Efra Smarttatum Geraldine louann Comment on above: Once for 1 Occurrences starting 04/07/19 25 until 04/07/2024 Immunizations Immunization Date Immunization Notes Care Provider Jhon jones 12-23-2015 influenza, injectabl e, quadrivalent, contains preservative Somashekar Luiz MD, MPH Work Phone: [facility] 12-23-2015 influenza virus vaccine, unspecified formulation Sabrina Dee MD, MPH Work Phone: [facility] 12-15-2014 influenza virus vaccine, unspecified formulation Sabrina Dee MD, MPH Work Phone: [facility] Payers Date Payer Category Payer Private Health Insurance [id number] 2022 Self-pay [id number] 2022 Medicaid [employer] O [id number] 2022-Present [phone] [address] [place] [address] [id number] 2019 Unknown [employer] [facility] MEDICA[facility] xxxxxxxxxxx 2019-Present [phone] CLAIMS DEPARTMENT [address] [place] [address] xxxxxxxxxxx [id number] 2017 Unknown [id number] 2017 Unknown 1969 Unknown [id number] 2.16.840.1.901485.3.579.2. 900 1969 Unknown [id number] 2.16.840.1.733692.3.579.2. 900 1969 Unknown [id number] 2.16.840.1.849788.3.579.2. 900 1969 Unknown [id number] 2.16.840.1.679174.3.579.2. 900 1969 Unknown [id number] 2.16.840.1.858193.3.579.2. 900 1969 Unknown [id number] 2.16.840.1.429555.3.579.2. 593 1969 Unknown [id number] 2.16.840.1.375938.3.579.2. 593 1969 Unknown [id number] 2.16.840.1.322253.3.579.2. 593 1969 Unknown [id number] 2.16.840.1.616732.3.579.2. 593 1969 Unknown [id number] 2.16.840.1.574085.3.579.2. 593 1969 Unknown [id number] 2.16.840.1.610445.3.579.2. 593 1969 Unknown [id number] 2.16.840.1.387774.3.579.2. 593 1969 Unknown [id number] 2.16.840.1.030438.3.579.2. 593 1969 Unknown [id number] 2.16.840.1.134514.3.579.2. 593 1969 Unknown [id number] 2.16.840.1.131131.3.579.2. 593 1969 Unknown [id number] 2.16.840.1.749354.3.579.2. 593 1969 Unknown [id number] 2.16.840.1.816003.3.579.2. 593 1969 Unknown [id number] 2.16.840.1.645620.3.579.2. 593 1969 Unknown [id number] 2.16.840.1.371180.3.579.2. 593 1969 Unknown [id number] 2.16.840.1.353489.3.579.2. 594 1969 Unknown [id number] 2.16.840.1.526764.3.579.2. 594 1969 Unknown [id number] 2.16.840.1.121234.3.579.2. 594 1969 Unknown [id number] 2.16.840.1.752440.3.579.2. 173 1969 Unknown [id number] 2.16.840.1.804657.3.579.2. 173 1969 Unknown [id number] 2.16.840.1.611432.3.579.2. 173 1969 Unknown [id number] 2.16.840.1.009865.3.579.2. 1286 1969 Unknown [id number] 2.16.840.1.495027.3.579.2. 1286 1969 Unknown [id number] 2.16.840.1.954411.3.579.2. 1286 1969 Unknown [id number] 2.16.840.1.326053.3.579.2. 1286 1969 Unknown [id number] 2.16.840.1.770830.3.579.2. 1286 1969 Unknown [id number] 2.16.840.1.598288.3.579.2. 1286 1959 Medicaid [id number] 1959 Unknown [id number] 1.2.840.964009.1.13.239.2. 7.3.545676.315 Unknown [id number] 2.16.840.1.376287.3.579.2. 531 Unknown [id number] 2.16.840.1.407616.3.579.2. 531 Unknown [id number] 2.16.840.1.105764.3.579.2. 531 Unknown [id number] 2.16.840.1.857606.3.579.2. 531 Social History Date Type Detail Facility Start: 06-09-2017 End: 05-11-2023 Tobacco smoking status NHIS Current every day smoker [facility] End: 10-30-2020 History of tobacco use Cigarette Smoker [facility] Start: 06-09-2017 End: 04-19-2020 Cigarettes smoked current (pack per day) - Reported [facility] Start: 1970 [facility] Assigned At [facility] Start: 08-22-2019 End: 04-07-2024 Alcohol intake Current non-drinker of alcohol (finding) [facility] Exposure to SARS-CoV -2 (event) Unable to assess [facility] Start: 03-08-2018 End: 05-11-2023 Tobacco use and exposure Never used [facility] Start: 07-24-2014 Tobacco Comment Smokes < 1/2 p pd, smoker for 30+ years [facility] Start: 07-24-2014 Alcohol Comment Prior heavy dr carrillo, quit 8 years ago [facility] Start: 04-19-2020 End: 08-12-2022 Sex Assigned At [facility] Other Start: 09-25-2021 End: 04-18-2023 Tobacco smoking status NYIS Smoker (finding) [facility] Start: 1970 Sex Assigned At Female F [facility] Start: 05-09-2016 Alcohol Comment been sober for 9 yea rs [facility] Start: 04-02-2023 Tobacco smoking stat [facility] Current some day smoker [facility] Gender identity Identifies as fe male gender (finding) [facility] How often to you hav e a drink containing alcohol? [facility] How many standard drinks containing alcohol do you have on a typical day? Patient does not drink [facility] Start: 06-25-2022 [facility] Start: 04-11-2023 End: 05-11-2023 Alcohol intake Ex-drinker (finding) [facility] Start: 06-25-2022 Alcohol Comment Has not consum ed alcohol in 12 years [facility] Clinical Notes 10-08-2019 to 05-31-2024 Discharge InstructionsAttachJerzy Alvarado RN - 01/19/2024 11:44 AM Brennan Alvarado RN - 01/19/2024 11:44 AM To Christiansen MD - 01/19/2024 8:30 AM To Christiansen MD - 01/19/2024 8:30 AM EST Note Date & Type Note Facility 05-31-[address] ABDOMEN AND PELVI S W CONT History: Progressive abdominal pain, nausea [...] London Hurd DO on 05/31/2024 3:21 PM [facility] 04-07-2024 Hospital Discharg e instructions Peter Escalera MD - 04/07/2024 6:10 PM EST Please start a clear liquid diet today and tomorrow, advance as tolerated, avoid alcohol. Follow-up with your GI doctor tomorrow for further recommendations. The following attachments cannot be sent through Care Everywhere.Pancreatitis (Bolivian)Clear Liquid Diet: General Info (Bolivian)documented in this encounter [facility] [...] off unit via wheelchair w/ family assistance. [facility] 01-19-2024 Nurse Note Patient mets discharge criteria, [...] w/ family assistance. documented in this encounter [facility] 01-19-2024 History and physical note ENDOSCOPIC PREPROCEDURE HISTORY AND PHYSICAL HISTORY OF PRESENT ILLNESS: Chioma Rainey is a 53 y.o. female seen in the pre-procedure area at [facility]. The indication for endoscopic [...] 50,000 Units, Oral, WEEKLY Pancreatic enzymes (Creon) [id number] units Cap DR Particles capsule 72,000 Units, Oral, 2 TIMES DAILY WITH MEALS Current Outpatient Medications: Ergocalciferol 1.25 MG (49465 UT) capsule, Take 1 capsule by mouth once a week., Disp: 8 capsule, Rfl: 0 Pancreatic enzymes (Creon) [id number] units Cap DR Particles capsule, Take 3 [...] using [facility]itored Anesthesia Care. Daniel Christiansen MD [facility] Work Phone: 01-19-2024 History and physical note ENDOSCOPIC PREPROCEDURE HISTORY AND PHYSICAL HISTORY OF PRESENT ILLNESS: Chioma Rainey is a 53 y.o. female seen in the pre-procedure area at [facility]. The indication for endoscopic evaluation includes: Alcohol-induced chronic pancreatitis PAST MEDICAL HISTORY: Past Medical History: Diagnosis Date Anemia Depression H. pylori infection Neutrophilic leukocytosis Pancreatitis SURGICAL HISTORY: Past Surgical History: Procedure Laterality Date EGD W/ ULTRASOUND 09/08/2023 for nerve block EGD W/ ULTRASOUND N/A 12/01/2019 Laterality: N/A; Surgeon: Sabrina Dee MD, MPH; Location: [facility] EGD W/ ULTRASOUND N/A 04/23/2016 Laterality: N/A; Surgeon: Pineda Troy MD; Location: [facility] EGD W/ ULTRASOUND N/A 01/23/2016 Laterality: N/A; Surgeon: Pineda Troy MD; Location: [facility] CHANGE TUBE GASTROSTOMY N/A 08/20/2015 Laterality: N/A; Surgeon: Yanni Alonzo MD; Location: [facility] EGD DIAGNOSTIC N/A 06/25/2015 Laterality: N/A; Surgeon: Pineda Troy MD; Location: [facility] EGD W/ PLACEMENT OR REPLACEMENT PEG N/A 06/15/2015 Laterality: N/A; Surgeon: Curry Newell MD; Location: [facility] EGD W/ INSERTION TUBE OR CATHETER N/A 06/13/2015 Laterality: N/A; Surgeon: Jose Ty MD; Location: [facility] EGD W/ ULTRASOUND N/A 02/14/2015 Laterality: N/A; Surgeon: Pineda Troy MD; Location: [facility] CHOLECYSTECTOMY CHOLECYSTECTOMY, LAPAROSCOPIC HYSTERECTOMY MEDICATIONS: Current Outpatient Medications Medication Instructions Ergocalciferol (VITAMIN D2) 50,000 Units, Oral, WEEKLY Pancreatic enzymes (Creon) [id number] units Cap DR Particles capsule 72,000 Units, Oral, 2 TIMES DAILY WITH MEALS Current Outpatient Medications: Ergocalciferol 1.25 MG (42239 UT) capsule, Take 1 capsule by mouth once a week., Disp: 8 capsule, Rfl: 0 Pancreatic enzymes (Creon) [id number] units Cap DR Particles capsule, Take 3 [...] Daniel Christiansen MD documented in this encounter [facility] 01-07-2024 Hospital Discharg e Marina Copeland, ROLLER LEVELER - MITIGATION SUPERVISOR - 01/07/2024 5:08 PM EDT Increase fluids. Tate diet Continue home medication The following attachments cannot be sent through Care Everywhere.Abdominal Pain (Bolivian)Pancreatitis (Bolivian)Pancreatitis: Chronic Diet (Bolivian)documented in this encounter [facility] 09-08-2023 History and physical note ENDOSCOPIC PREPROCEDURE [...] 50,000 Units, Oral, WEEKLY Pancreatic enzymes (Creon) 47933-[address] Particles capsule 72,000 Units, Oral, 2 TIMES DAILY WITH MEALS Current Outpatient Medications: Ergocalciferol 1.25 MG (49824 UT) capsule, Take 1 capsule by mouth once a week., Disp: 8 capsule, Rfl: 0 Pancreatic enzymes (Creon) 90884-[address] Particles capsule, Take 3 [...] [facility]itored Anesthesia Care. Sabrina Dee MD, MPH [facility] 09-08-2023 History and physical note ENDOSCOPIC PREPROCEDURE HISTORY AND PHYSICAL HISTORY OF PRESENT ILLNESS: Chioma Rainey is a 53 y.o. female seen in the pre-procedure area at [facility]. The indication for endoscopic evaluation includes: Alcohol-induced chronic pancreatitis PAST MEDICAL HISTORY: Past Medical History: Diagnosis Date Anemia Depression H. pylori infection Neutrophilic leukocytosis Pancreatitis SURGICAL HISTORY: Past Surgical History: Procedure Laterality Date EGD W/ ULTRASOUND N/A 12/01/2019 Laterality: N/A; Surgeon: Sabrina Dee MD, MPH; Location: [facility] EGD W/ ULTRASOUND N/A 04/23/2016 Laterality: N/A; Surgeon: Pineda Troy MD; Location: [facility] EGD W/ ULTRASOUND N/A 01/23/2016 Laterality: N/A; Surgeon: Pineda Troy MD; Location: [facility] CHANGE TUBE GASTROSTOMY N/A 08/20/2015 Laterality: N/A; Surgeon: Yanni Alonzo MD; Location: [facility] EGD DIAGNOSTIC N/A 06/25/2015 Laterality: N/A; Surgeon: Pineda Troy MD; Location: [facility] EGD W/ PLACEMENT OR REPLACEMENT PEG N/A 06/15/2015 Laterality: N/A; Surgeon: Curry Newell MD; Location: [facility] EGD W/ INSERTION TUBE OR CATHETER N/A 06/13/2015 Laterality: N/A; Surgeon: Jose Ty MD; Location: [facility] EGD W/ ULTRASOUND N/A 02/14/2015 Laterality: N/A; Surgeon: Pineda Troy MD; Location: [facility] CHOLECYSTECTOMY CHOLECYSTECTOMY, LAPAROSCOPIC HYSTERECTOMY MEDICATIONS: Current Outpatient Medications Medication Instructions Ergocalciferol (VITAMIN D2) 50,000 Units, Oral, WEEKLY Pancreatic enzymes (Creon) 91776-[address] Particles capsule 72,000 Units, Oral, 2 TIMES DAILY WITH MEALS Current Outpatient Medications: Ergocalciferol 1.25 MG (99753 UT) capsule, Take 1 capsule by mouth once a week., Disp: 8 capsule, Rfl: 0 Pancreatic enzymes (Creon) 71714-[address] units [address] Particles capsule, Take 3 [...] MD, MPH documented in this encounter [facility] 09-08-2023 Miscellaneous Notes RN and MD educated pt on DC instructions, pt verbalized understanding. IV removed per protocol. documented in this encounter [facility] 09-08-2023 Nurse Note RN and educated pt on DC instructions, pt verbalized understanding. IV removed per protocol. [facility] 05-22-2023 Miscellaneous Notes Called patient to remind them to bring their most current copy of their medication list with them to their appt. Patient verbalizes understanding. documented in this encounter [facility] 05-22-2023 Telephone encounter Note Called patient to remind them to bring their most current copy of their medication list with them to their appt. Patient verbalizes understanding. [facility] 05-11-2023 History of Presen t illness Narrative This Advertising Display Rotator verified the patients name and date of [...] for pain management 5. Prior evaluation at [facility] for TPIAT and was not [...] includes the following prescription(s): Pancreatic enzymes (Creon) 79209-[address] Particles capsule and Ergocalciferol 1.25 MG (81392 UT) capsule. Allergies: She is allergic to [...] Hepatology, and Nutrition documented in this encounter [facility] 05-11-2023 Instructions Sabrina Dee MD, MPH - [...] celiac plexus block documented in this encounter [facility] 04-16-2023 Miscellaneous Notes Pt called requesting to schedule a new patient appt. Referral is in media from Tamela Keenan DO. A good phone number to reach the pt: [phone] [facility] so pt has no referral to nephrology. LM informing pt she would need to have her referring provider fax us over a referral and then I could schedule her a new pt appt. documented in this encounter [facility] 04-16-2023 Telephone encounter Note Pt called requesting to schedule a new patient appt. Referral is in media from Tamela Keenan DO. A good phone number to reach the pt: [phone] [facility] 04-16-2023 Telephone encounter Note Referral in media was to [facility] so pt has no referral to nephrology. LM informing pt she would need to have her referring provider fax us over a referral and then I could schedule her a new pt appt. [facility] 04-16-2023 Miscellaneous Notes LMOM for the patient to call and schedule their new pt appointment with [facility]. documented in this encounter [facility] 04-16-2023 Telephone encounter Note LMOM for the patient to call and schedule their new pt appointment with [facility]. [facility] 08-12-2022 History and physical note ENDOSCOPIC PREPROCEDURE HISTORY AND PHYSICAL HISTORY OF PRESENT ILLNESS: Chioma Rainey is a 52 y.o. female seen in the pre-procedure area at [facility]. The indication for endoscopic evaluation includes: Alcohol-induced chronic pancreatitis PAST MEDICAL HISTORY: Past Medical History: Diagnosis Date Anemia Depression H. pylori infection Neutrophilic leukocytosis Pancreatitis SURGICAL HISTORY: Past Surgical History: Procedure Laterality Date EGD W/ ULTRASOUND N/A 12/01/2019 Laterality: N/A; Surgeon: Sabrina Dee MD, MPH; Location: [facility] EGD W/ ULTRASOUND N/A 04/23/2016 Laterality: N/A; Surgeon: Pineda Troy MD; Location: [facility] EGD W/ ULTRASOUND N/A [...] 20 mg, Oral, DAILY Pancreatic enzymes (Creon) 57546-178[address] units [address] Particles capsule 48,000 Units, Oral, 3 TIMES DAILY WITH MEALS Current Outpatient Medications: omeprazole [address] capsule, Take 1 capsule by mouth daily., Disp: 30 capsule, Rfl: 6 amitriptyline 10 MG tablet, Take 2.5 tablets by mouth at bedtime., Disp: 30 tablet, Rfl: 11 ergocalciferol 1.25 MG (80898 UT) capsule, Take 1 capsule by mouth once a week for 8 doses., Disp: 8 capsule, Rfl: 0 Pancreatic enzymes (Creon) 65258-712[address] units Cap [address] Particles capsule, Take 2 [...] Monitored Anesthesia Care. Sabrina Dee MD, MPH [facility] 08-12-2022 History and physical note ENDOSCOPIC PREPROCEDURE HISTORY AND PHYSICAL HISTORY OF PRESENT ILLNESS: Chioma Rainey is a 52 y.o. female seen in the pre-procedure area at [facility]. The indication for endoscopic evaluation includes: Alcohol-induced chronic pancreatitis PAST MEDICAL HISTORY: Past Medical History: Diagnosis Date Anemia Depression H. pylori infection Neutrophilic leukocytosis Pancreatitis SURGICAL HISTORY: Past Surgical History: Procedure Laterality Date EGD W/ ULTRASOUND N/A 12/01/2019 Laterality: N/A; Surgeon: Sabrina Dee MD, MPH; Location: [facility] EGD W/ ULTRASOUND N/A 04/23/2016 Laterality: N/A; Surgeon: Pineda Troy MD; Location: [facility] EGD W/ ULTRASOUND N/A 01/23/2016 Laterality: N/A; Surgeon: Pineda Troy MD; Location: [facility] CHANGE TUBE GASTROSTOMY N/A 08/20/2015 Laterality: N/A; Surgeon: Yanni Alonzo MD; Location: [facility] EGD DIAGNOSTIC N/A 06/25/2015 Laterality: N/A; Surgeon: Pineda Troy MD; Location: [facility] EGD W/ PLACEMENT OR REPLACEMENT PEG N/A 06/15/2015 Laterality: N/A; Surgeon: Curry Newell MD; Location: [facility] EGD W/ INSERTION TUBE OR CATHETER N/A 06/13/2015 Laterality: N/A; Surgeon: Jose Ty MD; Location: [facility] EGD W/ ULTRASOUND N/A 02/14/2015 Laterality: N/A; Surgeon: Pineda Troy MD; Location: [facility] CHOLECYSTECTOMY CHOLECYSTECTOMY, LAPAROSCOPIC HYSTERECTOMY MEDICATIONS: Current Outpatient Medications Medication Instructions Amitriptyline (ELAVIL) 25 mg, Oral, DAILY AT BEDTIME Ergocalciferol (VITAMIN D2) 50,000 Units, Oral, WEEKLY omeprazole (PRILOSEC) 20 mg, Oral, DAILY Pancreatic enzymes (Creon) 90379-[address] units [address] Particles capsule 48,000 Units, Oral, 3 TIMES DAILY WITH MEALS Current Outpatient Medications: omeprazole [address] capsule, Take 1 capsule by mouth daily., Disp: 30 capsule, Rfl: 6 amitriptyline 10 MG tablet, Take 2.5 tablets by mouth at bedtime., Disp: 30 tablet, Rfl: 11 ergocalciferol 1.25 MG (84711 UT) capsule, Take 1 capsule by mouth once a week for 8 doses., Disp: 8 capsule, Rfl: 0 Pancreatic enzymes (Creon) 43186-[address] Particles capsule, Take 2 [...] Dee MD, MPH documented in this encounter [facility] 08-12-2022 Nurse Note PT Given discharge paperwork and reviewed per MD and nurse. Racebook Writer available.Diet and restrictions reviewed as well. Venous access removed no complications noted. Ok to d/c Anesthesia and procedural MD. documented in this encounter [facility] 08-12-2022 Nurse Surgical operation note PT Given discharge paperwork and reviewed per MD and nurse. Racebook Writer available.Diet and restrictions reviewed as well. Venous access removed no complications noted. Ok to d/c Anesthesia and procedural . [facility] 06-16-2022 History of Presen t illness Narrative This Advertising Display Rotator verified the patients name and date of [...] for pain management 5. Prior evaluation at [facility] for TPIAT and was not a candidate 6. Last CT was at [facility] in 05/2019: No calcification in [...] amitriptyline 10 MG tablet, ergocalciferol 1.25 MG (65844 UT) capsule, and Pancreatic enzymes (Creon) 34363-[address] Particles capsule. Allergies: She [...] Hepatology, and Nutrition documented in this encounter [facility] 06-16-2022 Instructions Sabrina Dee MD, MPH - 06/16/2022 11:00 AM EDT Schedule EUS celiac plexus block; EGD dilation Referral to endocrinology; appointment to be scheduled Return to clinic in Mar 2023 Smoking cessation Vitamin D 2000 units daily Calcium supplement 1 gram daily Omeprazole (Prilosec) 20mg daily, take at least 30 mins before dinner documented in this encounter [facility] 01-28-2022 Miscellaneous Notes Attending physician in room speaking with patient and family on results. Attending physician ok for discharge. Pt ambulated unassisted with steady gait and balance. IV removed and discharge instructions given with verbal ok by patient of understanding. Pt discharged via w/c with taxicab driver from unit. Dr dee aware patient ready for results Updated dr goins on patient pain and received new orders documented in this encounter [facility] 01-28-2022 Note Formatting of this n ote might be different from the original. Attending physician in room speaking with patient and family on results. Attending physician ok for discharge. Pt ambulated unassisted with steady gait and balance. IV removed and discharge instructions given with verbal ok by patient of understanding. Pt discharged via w/c with taxicab driver from unit. [facility] 01-28-2022 Note Formatting of this n ote might be different from the original. Dr dee aware patient ready for results [facility] 01-28-2022 Note Formatting of this n ote might be different from the original. Updated dr goins on patient pain and received new orders [facility] 01-28-2022 History and physical note ENDOSCOPIC PREPROCEDURE HISTORY AND PHYSICAL HISTORY OF PRESENT ILLNESS: Chioma Rainey is a 51 y.o. female seen in the preoprocedure area at [facility]. The indication for endoscopic evaluation includes: Recurrent acute pancreatitis PAST MEDICAL HISTORY: Past Medical History: Diagnosis Date Anemia Depression H. pylori infection Neutrophilic leukocytosis Pancreatitis SURGICAL HISTORY: Past Surgical History: Procedure Laterality Date EGD W/ ULTRASOUND N/A 12/01/2019 Laterality: N/A; Surgeon: Sabrina Dee MD, MPH; Location: [facility] EGD W/ ULTRASOUND N/A 04/23/2016 Laterality: N/A; Surgeon: Pineda Troy MD; Location: [facility] EGD W/ ULTRASOUND N/A 01/23/2016 Laterality: N/A; Surgeon: Pineda Troy MD; Location: [facility] CHANGE TUBE GASTROSTOMY N/A 08/20/2015 Laterality: N/A; Surgeon: Yanni Alonzo MD; Location: [facility] EGD DIAGNOSTIC N/A 06/25/2015 Laterality: N/A; Surgeon: Pineda Troy MD; Location: [facility] EGD W/ PLACEMENT OR REPLACEMENT PEG N/A 06/15/2015 Laterality: N/A; Surgeon: Curry Newell MD; Location: [facility] EGD W/ INSERTION TUBE OR CATHETER N/A 06/13/2015 Laterality: N/A; Surgeon: Jose Ty MD; Location: [facility] EGD W/ ULTRASOUND N/A 02/14/2015 Laterality: N/A; Surgeon: Pineda Troy MD; Location: [facility] CHOLECYSTECTOMY CHOLECYSTECTOMY, LAPAROSCOPIC HYSTERECTOMY MEDICATIONS: Current Outpatient Medications Medication Instructions amitriptyline (ELAVIL) 25 mg, Oral, DAILY AT BEDTIME ergocalciferol (VITAMIN D2) 50,000 Units, Oral, WEEKLY Pancreatic enzymes (Creon) 63337-806[address] units [address] Particles capsule 48,000 Units, Oral, 3 TIMES DAILY WITH MEALS Current Outpatient Medications: amitriptyline 10 MG tablet, Take 2.5 tablets by mouth at bedtime., Disp: 30 tablet, Rfl: 11 Pancreatic enzymes (Creon) 42120-[address] Particles capsule, Take 2 capsules by mouth 3 times daily with meals., Disp: 180 capsule, Rfl: 0 ergocalciferol 1.25 MG (02287 UT) capsule, Take 1 capsule by mouth [...] Monitored Anesthesia Care. Sabrina Dee MD, MPH [facility] 01-28-2022 History and physical note ENDOSCOPIC PREPROCEDURE HISTORY AND PHYSICAL HISTORY OF PRESENT ILLNESS: Chioma Rainey is a 51 y.o. female seen in the preoprocedure area at [facility]. The indication for endoscopic evaluation includes: Recurrent acute pancreatitis PAST MEDICAL HISTORY: Past Medical History: Diagnosis Date Anemia Depression H. pylori infection Neutrophilic leukocytosis Pancreatitis SURGICAL HISTORY: Past Surgical History: Procedure Laterality Date EGD W/ ULTRASOUND N/A 12/01/2019 Laterality: N/A; Surgeon: Sabrina Dee MD, MPH; Location: [facility] EGD W/ ULTRASOUND N/A 04/23/2016 Laterality: N/A; Surgeon: Pineda Troy MD; Location: [facility] EGD W/ ULTRASOUND N/A 01/23/2016 Laterality: N/A; Surgeon: Pineda Troy MD; Location: [facility] CHANGE TUBE GASTROSTOMY N/A 08/20/2015 Laterality: N/A; Surgeon: Yanni Alonzo MD; Location: [facility] EGD DIAGNOSTIC N/A 06/25/2015 Laterality: N/A; Surgeon: Pineda Troy MD; Location: [facility] EGD W/ PLACEMENT OR REPLACEMENT PEG N/A 06/15/2015 Laterality: N/A; Surgeon: Curry Newell MD; Location: [facility] EGD W/ INSERTION TUBE OR CATHETER N/A 06/13/2015 Laterality: N/A; Surgeon: Jose Ty MD; Location: [facility] EGD W/ ULTRASOUND N/A 02/14/2015 Laterality: N/A; Surgeon: Pineda Troy MD; Location: [facility] CHOLECYSTECTOMY CHOLECYSTECTOMY, LAPAROSCOPIC HYSTERECTOMY MEDICATIONS: Current Outpatient Medications Medication Instructions amitriptyline (ELAVIL) 25 mg, Oral, DAILY AT BEDTIME ergocalciferol (VITAMIN D2) 50,000 Units, Oral, WEEKLY Pancreatic enzymes (Creon) [address]97-[address] Particles capsule 48,000 Units, Oral, 3 TIMES DAILY WITH MEALS Current Outpatient Medications: amitriptyline 10 MG tablet, Take 2.5 tablets by mouth at bedtime., Disp: 30 tablet, Rfl: 11 Pancreatic enzymes (Creon) 15591-[address] units [address] Particles capsule, Take 2 capsules by mouth 3 times daily with meals., Disp: 180 capsule, Rfl: 0 ergocalciferol 1.25 MG (75155 UT) capsule, Take 1 capsule by mouth [...] MD, MPH documented in this encounter [facility] 12-16-2021 History of Presen t illness [...] for pain management 5. Prior evaluation at [facility] for TPIAT and was not a candidate 6. Last CT was at [facility] in 05/2019: No calcification in [...] 10 MG tablet and Pancreatic enzymes (Creon) [address] Particles capsule. Allergies: She [...] in 6 months [facility] Instructions Sabrina Dee MD, MPH - 12/16/2021 11:30 AM EDT Schedule DEXA scan Schedule colonoscopy Schedule EUS Start vitamin D 1,000 units daily. Start calcium supplements 1g daily RTC in 6 months documented in this encounter [facility] 03-19-2021 Evaluation note Encounter Date Diagnosis Assessment [...] by [facility] Care At Home document [employer] Other 08-01-2020 History general Narrative - Reported* Type Description Date Medical History chronic pancreatitis Medical History chronic pain Medical History former alcoholic Surgical History [facility]d- [facility] 10[facility]2019 Surgical History GALLBLADDER Surgical History COLON-[facility] Hospitalization History see above [employer] Other Evaluation noteNo assessment information available [facility] Work Phone: evaluation note* Diagnosis Recurrent acute pancreatitis- Primary Acute pancreatitis History of smoking 25-50 pack years Alcohol-induced chronic pancreatitis Chronic pancreatitis Epigastric pain Abdominal pain, epigastric Encounter for screening colonoscopy Special screening for malignant neoplasms, colon [facility] Diagnosis Recurrent acute pancreatitis Acute pancreatitis History of smoking 25-50 pack years Encounter for screening colonoscopy Special screening for malignant neoplasms, colon [facility] Diagnosis Other osteoporosis without current pathological fracture- Primary Recurrent acute pancreatitis Acute pancreatitis Encounter for screening colonoscopy Special screening for malignant neoplasms, colon [facility] Encounter for screening colonoscopy Special screening for malignant neoplasms, colon [facility] Diagnosis Osteoporosis without current pathological fracture, unspecified osteoporosis type- Primary Alcohol-induced chronic pancreatitis Chronic pancreatitis [facility] Diagnosis Alcohol-induced chronic pancreatitis Chronic pancreatitis [facility] Diagnosis Alcohol-induced chronic pancreatitis- Primary Chronic pancreatitis Encounter for screening for malignant neoplasm of colon Special screening for malignant neoplasms, colon Other osteoporosis without current pathological fracture Epigastric pain Abdominal pain, epigastric Smoking Tobacco use disorder Gastroesophageal reflux disease without esophagitis Esophageal reflux [facility] Diagnosis Alcohol-induced chronic pancreatitis Chronic pancreatitis [facility] Diagnosis Alcohol-induced chronic pancreatitis Chronic pancreatitis [facility] Diagnosis Hypokalemia- Primary Hypopotassemia Acute recurrent pancreatitis Acute pancreatitis documented in this encounter [facility] note* Diagnosis Acute on chronic pancreatitis (HCC)- Primary Abdominal pain, epigastric documented in this encounter [facility] note* Diagnosis Acute pancreatitis without infection or necrosis, unspecified pancreatitis type- Primary Acute recurrent pancreatitis Acute pancreatitis [facility] Additional Instructions Fluids Phenergan if needed for nausea vomiting Bentyl as needed for abdominal pain Follow-up with your GI specialist call Thursday for appointment Return here if any problems persist or worsen [facility] Discharge instructions Additional Instructions Clear with diet today and advance as tolerated Push fluids Percocet if needed for severe pain Zofran or Phenergan if needed for nausea vomiting Keep your doctor's appointment tomorrow as planned Return here if you develop any increased pain, vomiting unable to be controlled, fevers, chills or any other concernDayton [facility] Work Phone: Hospital Discharge instructions Additional Instructions Follow-up with your primary care doctor Return to ED if develop worsening symptoms or concernsDayton [facility] Work Phone: Hospital Discharge instructions Additional Instructions Follow-up with your private physician as your calcium was slightly elevated Return if symptoms are worse Lots of fluids/no alcoholDayton Children'S Hospital Work Phone: Hospital Discharge instructions* Attachments The following attachments cannot be sent through Care Everywhere. * Clear Liquid Diet: General Info (Bolivian) documented [facility]ructions[facility] on [facility]ructionsNot on file documented in this encounterCleveland ClinicInstructionsNot on file documented in this encounterC[facility] Clinic Discharge Instructions * Jose Brown PA-C - [...] Log into your personal health record on [email or web address] and enter E907 in the Education box to learn more about Abdominal Pain: Care Instructions. Current as of: August 03, 2015 Content Version: 11.2 0635-7147 [employer]. Care instructions adapted under license by your healthcare professional. If you have questions about a medical condition or this instruction, always ask your healthcare professional. [employer] disclaims any warranty or liability for your [...] Log into your personal health record on [email or web address] and enter H591 in the Education box to learn more about Nausea and Vomiting: Care Instructions. Current as of: August 03, 2015 Content Version: 11.2 1037-1849 [employer]. Care instructions adapted under license by your healthcare professional. If you have questions about a medical condition or this instruction, always ask your healthcare professional. [employer] disclaims any warranty or liability for your use of this information. Please review regarding your visit: Please note that your blood pressure during this ER visit was above 120/80 mmHg. YOUR BP READING WAS: 111/88 The English Heart Association (AHA) defines a normal blood [...] review at your convenience for more information: [email or web address] in this encounter* Discharge Instr - [...] [facility] Physician Referral Service by calling [phone]) or by visiting [email or web address] Chioma, Thank You for choosing [facility]! The following attachments cannot be sent through Care Everywhere. * Nausea and Vomiting (Bolivian) * Gastroenteritis (Bolivian) * Diarrhea (Bolivian) in this encounter The following attachments cannot be sent through Care Everywhere. * Pancreatitis (Bolivian) in this encounter* Instructions* Laura Meyer, RN - 08/25/2019 Patient Instructions: Activity: activity as tolerated Diet: encourage fluids GI specialist in 2 weeks. * Attachments The following attachments cannot be sent through Care Everywhere. * Pancreatitis: Chronic Diet (Bolivian) * Pancreatitis (Bolivian) documented in this encounter Assessments Diagnosis Epigastric [...] FoundDocuments on File Type Date Recorded Patient Health Psychologist Expl anation Advance Directives and Living Will Power of Coding Coordinator Latest Code Status on File Code Status Date Activated Date Inactivated Comments Full Code 08/22/2019 4:27 PM Documents on File Type Date Recorded Patient Health Psychologist Expl anation Advance Directives and Livin g [...] Documents on File Type Date Recorded Patient Health Psychologist Expl anation ACP-Advance Directive ACP-Power of Coding Coordinator Latest Code Status on File Code Status [...] toradol is contraindicated. Called Dr. Hughes back, rewriter explained that patient is tolerating dilaudid. Dr. Hughes ordered dose of dilaudid increased from 0.25 mg to 0.5 mg q4 hrs PRN. * Ladan Stearns RN - 08/24/2019 1:27 PM EDT Patient walking in hallway at this time. * Ladan Stearns RN - 08/24/2019 9:14 AM EDT Film Coater to patients bedside at this time to reassess pain. Patient sitting in chair, appears restless and is tearful. Patient states Dilaudid did not help the pain, states there is nothing rewriter can do as she deals with this [...] Scheduled for EGD in September with her Noodle Press Operator at [facility] Discharge Planning -- Home when stable Carley Camara APRN, SCREENER OPERATOR-C Associated attestation - Rajeev Cantor MD - 08/24/2019 5:30 PM EDT Attending Supervising Physician s Attestation Statement I have personally evaluated and examined the patient [id number] in conjunction with the nurse practitioner. I [...] Examined and Reviewed plan of care with SCREENER OPERATOR. Directions and discussion about care and plans. [...] Birmingham RN - 08/23/2019 4:40 PM EDT Film Coater contacted Dr. Cantor regarding update that patient [...] he would not give order for Benedryl. Film Coater let nurse know that if patient's c/o ithcing and redness doesn't improve in an hour, that rewriter will be calling back to update physician. * Brie Birmingham RN - 08/23/2019 3:20 PM EDT Film Coater called into patient's room d/t patient c/o itching, feeling hot , and slight redness noted to BUE and face. Film Coater contacted Dr. Cantor office and left message with his nurse, asking for IV Benedryl and d/c of Lovenox. Patient thinks she may have had reaction to Lovenox in the past, and thatis the only other med she is currently taking here other than Dilaudid. Film Coater did once again verify that patient usually [...] medically stable. Patient lives with her in [place]. She uses no DME and has no outside services currently in place. Patient provides for her own transportation needs and manages her medications. She is independent with her ADL's. PCP is [facility]. [facility] [place] [facility] and denies needing further assistance with the cost of her medications. Discharge plan is home with no additional services at this time. Patient is a 'Full Code' status. She has no healthcare directives and voices that she is not interested in pursuing these documents further. CONTROL OFFICER MANAGER to monitor and assist with discharge planning [...] Birmingham RN - 08/23/2019 9:05 AM EDT Film Coater made MITIGATION SUPERVISOR aware that patient is vomiting at this time since clear liquid diet added. Film Coater to give Zofran and place patient back [...] weight loss, but states of weight gain. [id number] Discussed need to re-zero Pt bed to verify gain. She declined education needs states she has a GI doctor and RDN at the [facility]. Reports following the guidelines they recommended. States [...] 5. Fluid Accumulation-No significant fluid accumulation, 6. Control Room Agent Strength-Not measured Nutrition Risk Level: Moderate Nutrient Needs: Estimated Daily Total Kcal: 9655-1143(20-23/kg) Estimated Daily Protein (g): 65-75g(1.3-1.5g/kg) Estimated Daily [...] weight gain/23%, recommend to re-zero Pt bed Caroline Body Wt: 110 lb (49.9 kg), % Caroline Body 129% BMI Classification: BMI 25.0 - [...] Nausea or Vomiting, Patient/Family Education Contact Number: [phone] * Carley Caamra APRN - MITIGATION SUPERVISOR - 08/23/2019 7:30 AM EDT Progress Note [...] Daily Discharge Plan--later today/tomorrow Carley Camara APRN, SCREENER OPERATOR-C Associated attestation - Rajeev Cantor MD - 08/23/2019 12:04 PM EDT Attending Supervising Physician s Attestation Statement I have personally evaluated and examined the patient [id number] in conjunction with the nurse practitioner. I [...] Examined and Reviewed plan of care with SCREENER OPERATOR. Directions and discussion about care and plans. [...] Patient [facility] ED in process of running a code on another patient; assembly line supervisor states that report will be called when able. Film Coater unable to get ahold of staff inED to put patient in nursing home manager so that rewriter can transfer [facility]. Will try again shortly. documented in [...] Diagnoses Alcohol-induced chronic pancreatitis Procedures UPPER EUS RI ESOPHAGOGASTRODUODENOSCOPY US SCOPE W/ADJ STRXRS Sabrina Dee MD, MPH [address] [place] [phone] Referral ID Status Reason Start Date Expiration Date V isits Requested Visits Authorized [id number] New Request 06/16/2022 07/11/2023 1 1 Specialty Diagnoses / Procedures Referred By Contac t Referred To Contact Endocrinology, Diabetes & Metabolism Diagnoses Osteoporosis without current pathological fracture, unspecified osteoporosis type Sabrina Dee MD, MPH [address] [place] [phone] Referral ID Status Reason Start Date Expiration Date V isits Requested Visits Authorized [id number] New Request 06/16/2022 07/11/2023 1 1 Specialty Diagnoses / Procedures Referred By Contac t Referred To Contact Diagnoses Encounter for screening colonoscopy Procedures SCREENING COLONOSCOPY RI COLON CA SCRN NOT HI RSK IND Sabrina Dee MD, MPH [address] [place] [phone] Referral ID Status Reason Start Date Expiration Date V isits Requested Visits Authorized [id number] New Request 12/16/2021 01/10/2023 1 1 Specialty Diagnoses / Procedures Referred By Contac t Referred To Contact Diagnoses Recurrent acute pancreatitis History of smoking 25-50 pack years Procedures BONE DENSITY AXIAL (HIP, PELVIS, SPINE) Sabrina Dee MD, MPH [address] [place] [phone] Referral ID Status Reason Start Date Expiration Date V isits Requested Visits Authorized [id number] New Request 12/16/2021 01/10/2023 1 1 Specialty Diagnoses / Procedures Referred By Zia t Referred To Contact Diagnoses Recurrent acute pancreatitis Procedures UPPER EUS RI EGD US GUIDED TRANSMURAL INJXN/FIDUCIAL MARKER Sabrina Dee MD, MPH [address] [place] [address] Referral ID Status Reason Start Date Expiration Date V isits Requested Visits Authorized [id number] New Request 12/16/2021 01/10/2023 1 1 Additional [...] the patient. I discussed the patient with SCREENER OPERATOR/PA. I agree with the SCREENER OPERATOR/PA treatment plan. I agree with the SCREENER OPERATOR/PA plan of care. I agree with the SCREENER OPERATOR/PA dispo as documented. 46-year-old female presents with abdominal pain. She states I have chronic pancreatitis and this feels like a flareup . States that she took her usual Phenergan and [place] with minimal relief so came the emergency [...] She is going to follow with her underground mining section foreman with whom she has an appointment on [...] different from the original. ED PROVIDER NOTE [facility] EMERGENC[facility] DEPARTMENT NAME: Chioma Rainey AGE: 46 y.o. : 1970 VISIT DATE: 06/09/2017 CSN: [id number] PCP: lAexander Nichols MD Chief Complaint Patient presents with [...] Phenergan suppository. She states that she took [place] last night. Last dose of [place] was around 9 PM last night. She [...] Surgeon: Romain Dumont MD; Location: [facility]; Service: HYSTERECTOMY ORIF PELVIS ORTHOPEDIC SURGERY WISDOM [...] Yellow Clarity, Urine Cloudy (A) Clear Specific [place] 1.024 1.005 - 1.025 pH, Urine 5.0 [...] Phenergan suppositories. She has follow-up with her underground mining section foreman at [facility] in 2 weeks. Do not feel [...] 1. Pineda Troy MD. Specialty: Gastroenterology [address] [facility] [address] [address] Contact information for after-discharge care Follow-up information has not been specified. New Prescriptions No medications on file (Please note that portions of this note may have been completed with a voice recognition software. Efforts were made to correct any errors, but occasionally words are mis-transcribed.) Jose Brown PA-C 06/09/17 6559 Pt states I have pancreatitis and I am having a flare up since last night . Pt relates mid abdominal pain that shoots into the left side of her back. Pt has been taking prescribed [place] without relief and states she has been vomiting.in this encounter I personally interviewed the patient. I personally examined the patient. I discussed the patient with SCREENER OPERATOR/PA. I agree with the SCREENER OPERATOR/PA treatment plan. I agree with the SCREENER OPERATOR/PA plan of care. I agree with the SCREENER OPERATOR/PA dispo as documented. I saw evaluate this [...] different from the original. ED PROVIDER NOTE [facility] MEDICAL OBSERVATION NAME: Chioma Raieny AGE: 46 y.o. : 1970 VISIT DATE: 05/14/2017 CSN: [id number] PCP: Alexander Nichols MD Chief Complaint Patient [...] Surgeon: Romain Dumont MD; Location: [facility]; Service: HYSTERECTOMY ORIF PELVIS ORTHOPEDIC SURGERY WISDOM [...] Colorless, Yellow Clarity, Urine Clear Clear Specific [place] 1.006 1.005 - 1.025 pH, Urine 5.0 [...] in the left lower pelvis. Workstation ID: [id number] Procedures MDM This is a 46-year-old female [...] different from the original. ED PROVIDER NOTE [facility] EMERGENCY DEPARTMENT NAME: Chioma Rainey AGE: 47 y.o. : 1970 VISIT DATE: 08/24/2017 CSN: [id number] PCP: Alexander Nichols MD Chief Complaint Patient [...] Surgeon: Romain Dumont MD; Location: [facility]; Service: HYSTERECTOMY ORIF PELVIS ORTHOPEDIC SURGERY WISDOM [...] Yellow Clarity, Urine Hazy (A) Clear Specific [place] 1.006 1.005 - 1.025 pH, Urine 7.0 [...] probably remain. 5. Small left adrenal adenoma. Vinsula/sambaash Workstation ID: [id number] Procedures MDM 47-year-old female [...] she did vomit. She was then given RI Phenergan and a dose of Toradol. She [...] Medicine Why: follow up ER visit [address] [address] Contact information for after-discharge care Follow-up information [...] the patient. I discussed the patient with SCREENER OPERATOR/PA. I agree with the SCREENER OPERATOR/PA treatment plan. I agree with the SCREENER OPERATOR/PA plan of care. I agree with the SCREENER OPERATOR/PA dispo as documented. Formatting of this note may be different from the original. ED PROVIDER NOTE [facility] EMERGENCY DEPARTMENT NAME: Chioma Rainey AGE: 47 y.o. : 1970 VISIT DATE: 03/04/2018 CSN: [id number] PCP: Alexander Nichols MD Chief Complaint Patient [...] Surgeon: Romain Dumont MD; Location: [facility]; Service: HYSTERECTOMY ORIF PELVIS ORTHOPEDIC SURGERY WISDOM [...] Colorless, Yellow Clarity, Urine Clear Clear Specific [place] 1.004 (L) 1.005 - 1.025 pH, Urine [...] Attending Provider or Group: [facility] [[id number]] Phone call required?: No Follow-up Information Follow-up [...] History and Physical Patient Name:Chioma Rainey MR #:[id number] :1970 Admit Date: [id number] Physicians: Alexander Nichols MD (Family); No ref. [...] Surgeon: Romain Dumont MD; Location: [facility]; Service: HYSTERECTOMY ORIF PELVIS ORTHOPEDIC SURGERY WISDOM [...] To Contact Diagnoses Acute recurrent pancreatitis Rajeev Cantro MD [address] [place] [address], [place] [address] [facility] Reason Comments Abdominal Pain Pt c/o [...] SPINE) Sabrina Dee MD, MPH [address] [place] [phone] Referral ID Status Reason Start Date Expiration Date V isits Requested Visits Authorized [id number] New Request 12/16/2021 01/10/2023 1 1 Specialty Diagnoses / Procedures Referred By Contac t Referred To Contact Diagnoses Recurrent acute pancreatitis Procedures UPPER EUS RI EGD US GUIDED TRANSMURAL INJXN/FIDUCIAL MARKER Sabrina Dee MD, MPH [address] [place] [phone] Referral ID Status Reason Start Date Expiration Date V isits Requested Visits Authorized [id number] New Request 12/16/2021 01/10/2023 1 1 Specialty Diagnoses / Procedures Referred By Contac t Referred To Contact Diagnoses Encounter for screening colonoscopy Procedures SCREENING COLONOSCOPY RI COLON CA SCRN NOT HI RSK IND Sabrina Dee MD, MPH [address] [place] [phone] Referral ID Status Reason Start Date Expiration Date V isits Requested Visits Authorized [id number] New Request 12/16/2021 01/10/2023 1 1 Reason Comments Follow-up 6 month follow up Specialty Diagnoses / Procedures Referred By Contac t Referred To Contact Diagnoses Alcohol-induced chronic pancreatitis Procedures UPPER EUS RI ESOPHAGOGASTRODUODENOSCOPY US SCOPE W/ADJ STRXRS Sabrina Dee MD, MPH [address] [place] [phone] Referral ID Status Reason Start Date Expiration Date V isits Requested Visits Authorized [id number] New Request 06/16/2022 07/11/2023 1 1 Reason Comments Follow-up Specialty Diagnoses / Procedures [facility] Referred To Contact Diagnoses Alcohol-induced chronic pancreatitis Procedures UPPER EUS RI EGD US GUIDED TRANSMURAL INJXN/FIDUCIAL MARKER Sabrina Dee MD, MPH [address] [place] [address] Referral ID Status Reason Start Date Expiration Date V isits Requested Visits Authorized [id number] New Request 05/11/2023 06/04/2024 1 1 Referral ID Status Reason Start Date Expiration Date V isits Requested Visits Authorized [id number] New Request 12/23/2023 01/16/2025 1 1 Reason [...] section and content) DATE CREATED AUTHOR 03/09/2018 [facility] DATE CREATED AUTHOR AUTHOR'S ORGANIZ ATION 04/08/2021 [facility] DATE CREATED AUTHOR AUTHOR'S ORGANIZ ATION 06/18/2022 [facility] DATE CREATED AUTHOR AUTHOR'S ORGANIZ ATION 09/02/2023 [facility] DATE CREATED AUTHOR AUTHOR'S ORGANIZ ATION 01/20/2024 [facility] DATE CREATED AUTHOR AUTHOR'S ORGANIZ ATION 04/09/2024 [facility] DATE CREATED AUTHOR AUTHOR'S ORGANIZ ATION 06/27/2024 [facility] Care Teams (unrecognized sec tion and [...] Active Christa Lopez PA-C Emergency Provider Active Braid Maker Relationship Specialty Start Date End Date Pineda Troy MD [address] [place] [address] PCP - Referring 1 Gastroenterology 09/25/17 [facility], Other [address] [facility] [place] [address] PCP - General 11/28/19 Braid Maker Relationship Specialty Start Date End Date Pineda Troy MD [address] [place] [phone] PCP - Referring 1 Gastroenterology 09/25/17 [facility], Other [address] [facility] [place] [address] PCP - General 11/28/19 Braid Maker Relationship Specialty Start Date End Date Pineda Troy MD [address] [place] [phone] PCP - Referring 1 Gastroenterology 09/25/17 [facility], Other [address] [facility] [place] [address] PCP - General 11/28/19 Braid Maker Relationship Specialty Start Date End Date Pineda Troy MD [address] [place] [address] PCP - Referring 1 Gastroenterology 09/25/17 [facility] Other [address] [facility] [place] [address] PCP - General 11/28/19 Team Status: Inactive Member Role Status Dates NON STAFF Primary Care Provider Active Agustin Llanes MD Emergency Provider Active Braid Maker Relationship Specialty Start Date End Date Pineda Troy MD [address] [place] [phone] PCP - Referring 1 Gastroenterology 09/25/17 [facility], Other [address] [place] [address] PCP - General 11/28/19 Braid Maker Relationship Specialty Start Date End Date Pineda Troy MD [address] [place] [address] PCP - Referring 1 Gastroenterology 09/25/17 [facility], Other [address] [facility] [place] [address] PCP - General 11/28/19 Team Status: Inactive [...] April 18, 2023 End: April 18, 2023 Braid Maker Relationship Specialty Start Date End Date Pineda Troy MD [address] [place] [address] PCP - Referring 1 Gastroenterology 09/25/17 [facility] Other [address] [place] [address] PCP - General 11/28/19 Braid Maker Relationship Specialty Start Date End Date Pineda Troy MD PCP - Referring 1 Gastroenterology 09/25/17 [facility], Other [address] [facility] [place] [address] PCP - General 11/28/19 Braid Maker Relationship Specialty Start Date End Date Pineda Troy MD PCP - Referring 1 Gastroenterology 09/25/17 [facility], Other [address] [facility] [place] [address] PCP - General 11/28/19 Braid Maker Relationship Specialty Start Date End Date [facility] [address] PCP - General Family Medicine 03/26/23 Braid Maker Relationship Specialty Start Date End Date [facility] [address] [place], [place] PCP - General Family Medicine 03/26/23 Braid Maker Relationship Specialty Start Date End Date [facility] [address] [place], [place] PCP - General Family Medicine 03/26/23 [...] first time they get up after administration. 2021 (Given - Provid er: Joyce Soria [...] hour of each other unless specifically ordered. 1611 (Given - Provid er: Joyce Soria RN) [...] BE BASED ON THE PRIMARY CLINICAL RECORDS. [employer] [facility]. provides no warranty or guarantee of the accuracy or completeness of information in this document.
[2024-07-18] MEDS: 0.9 % SODIUM CHLORIDE 1,000 ML 1000 ML IV (22:41)
[2024-07-18] MEDS: HYDROMORPHONE HCL 1 MG/ML CARTRIDGE IV (22:41)
[2024-07-18 22:58] VITALS: O2SAT 97
[2024-07-18 23:00] LABS: Basophils Absolute Auto 0.1 10^3/uL (0.0-0.1); Basophils Percent Auto 0.6 % (0.2-2.0); Eosinophils Absolute Auto 0.2 10^3/uL (0.0-0.7); Eosinophils Percent Auto 1.8 % (0.9-7.0); Hematocrit 40.8 % (36.0-48.0); Hemoglobin 13.8 g/dL (12.0-16.0); Immature Granulocytes Abs Auto 0.03 10^3/uL (0.00-0.03); Immature Granulocytes Pct Auto 0.3 % (0.0-0.5); Lymphocytes Absolute Auto 3.1 10^3/uL (1.2-3.8); Lymphocytes Percent Auto 25.6 % (20.5-60.0); Mean Corpuscular HGB Conc 33.8 g/dL (29.9-35.2); Mean Corpuscular Hemoglobin 33.2 pg (26.7-34.0); Mean Corpuscular Volume 98.1 fL (81.0-99.0); Mean Platelet Volume 9.9 fL (9.5-13.5); Monocytes Absolute Auto 1.1 10^3/uL (0.3-0.8); Monocytes Percent Auto 9.3 % (1.7-12.0); Neutrophils Absolute Auto 7.5 10^3/uL (1.4-6.5); Neutrophils Percent Auto 62.4 % (43.0-75.0); Platelet Count 247 10^3/uL (150-450); Red Blood Count 4.16 10^6/uL (4.20-5.40); Red Cell Distribution Width 12.7 % (11.0-15.0)
--- NOTE | 2024-07-18 23:04 | PC.NURSE ---
nurse report given to Danuta AMAYA, all questions answered.
[2024-07-18 23:20] LABS: Amylase 101 U/L (25-115); Anion Gap 12.3; Carbon Dioxide 26.2 mmol/L (21.0-32.0); Chloride 105 mmol/L (98-107); Glucose 104 mg/dL (74-106); Potassium 3.5 mmol/L (3.5-5.1); Sodium 140 mmol/L (136-145)
[2024-07-18 23:21] LABS: Alanine Aminotransferase 18 U/L (14-59); Albumin Globulin Ratio 1.1; Albumin Level 3.4 g/dL (3.4-5.0); Alkaline Phosphatase 125 U/L (46-116); Aspartate Amino Transferase 15 U/L (15-37); BUN Creatinine Ratio 12.2; Bilirubin Total 0.1 mg/dL (0.2-1.0); Calcium 9.5 mg/dL (8.5-10.1); Estimated GFR (African America >60 (>=60 mL/min/1.73m^2); Estimated GFR (Non-African Ame >60 (>=60 mL/min/1.73m^2); Globulin 3.2 g/dL; Total Protein 6.6 g/dL (6.4-8.2)
[2024-07-18] MEDS: ONDANSETRON PF 4 MG/2 ML VIAL IV (23:28)
[2024-07-19] MEDS: HYDROMORPHONE HCL 1 MG/ML CARTRIDGE IV (00:15)
[2024-07-19 00:19] VITALS: BP 146/95; PULSE 93; O2SAT 100
--- NOTE | 2024-07-19 01:30 | ED_ITS ---
HPI - Nausea/Vomiting/Diarrhea General Chief complaint: Nausea/Vomiting/Diarrhea Stated complaint: NAUSEA, VOMITING, DIARRHEA Time Seen by Provider: 07/18/24 21:28 Source: patient Mode of arrival: walk-in Limitations: no limitations History of Present Illness HPI Narrative: This 54-year-old female with a history of chronic pancreatitis after being a heavy alcohol user in the past who sees a computerized machine fabric cutter at [facility] and has been receiving nerve blocks for her chronic abdominal pain presents for evaluation of epigastric abdominal pain associated with nausea vomiting and diarrhea that started several days ago. She has not had a fever. She has no chest pain or shortness of breath. She states she is scheduled to see her computerized machine fabric cutter in August but does not know the exact date. Her vital signs are stable. An IV was placed and she was medicated with IV fluids milligram of Dilaudid and Zofran. She did not have any additional episodes of nausea vomiting while in the emergency department but requested additional dose of Dilaudid. I explained to her that the last several times she has been here we held off on doing radiographic studies and her labs have been normal. They were normal again today. She has a normal white count and hemoglobin. Electrolytes are normal. Amylase and lipase are both within normal limits. Liver function tests are normal with the exception of a mildly elevated alkaline phosphatase. Related Data Home Medications ?Medication ?Instructions ?Recorded ?Confirmed oxycodone-acetaminophen 5 mg-325 tab 07/18/24 mg tablet promethazine 25 mg tablet mg 07/18/24 Allergies Allergy/AdvReac Type Severity Reaction Status Date / Time haloperidol (From Haldol) Allergy Intermediate Hives Verified 07/18/24 21:23 ibuprofen (From Motrin) Allergy Intermediate Hives Verified 07/18/24 21:23 tramadol Allergy Intermediate Hives Verified 07/18/24 21:23 Penicillins Allergy Unknown Anaphylaxis Verified 07/18/24 21:23 morphine Allergy swells Verified 07/18/24 21:23 prochlorperazine (From Allergy Hives Verified 07/18/24 21:23 Compazine) ketorolac (From Toradol) AdvReac Severe Hives Verified 07/18/24 21:23 fentanyl AdvReac Intermediate Hives Verified 07/18/24 21:23 [facility] Medical History (Updated 07/19/24 @ 00:05 by María Johnson MD) COPD (chronic obstructive pulmonary disease) ?J44.9 - Chronic obstructive pulmonary disease, unspecified (ICD-10) Chronic pancreatitis ?K86.1 - Other chronic pancreatitis (ICD-10) Smoker ?F17.200 - Nicotine dependence, unspecified, uncomplicated (ICD-10) History of gastrostomy tube placement Surgical History (Updated 04/03/23 @ 12:10 by Marni Farley) Hx of esophagogastroduodenoscopy ?Z98.890 - Other specified postprocedural states (ICD-10) H/O colonoscopy ?Z98.890 - Other specified postprocedural states (ICD-10) Hx of cholecystectomy ?Z90.49 - Acquired absence of other specified parts of digestive tract (ICD- 10) H/O: hysterectomy ?Z90.710 - Acquired absence of both cervix and uterus (ICD-10) Social History (Updated 04/03/23 @ 12:08 by Marni Farley) Smoking status: Current every day smoker Non-prescribed substance use: denies use Highest level of school completed/degree received: high school graduate Little interest or pleasure in doing things: not at all Feeling down, depressed, or hopeless: not at all Exam Narrative Exam Narrative: Vital signs and Nursing Notes reviewed: Patient is afebrile with a normal pulse, blood pressure is mildly elevated 146/95, she is not hypoxic with pulse ox of 100% on room air General: Awake, alert, oriented, no acute distress, lying comfortably on the stretcher-appears comfortable, no respiratory distress, no active vomiting HEENT: Normocephalic atraumatic, mucous membranes are moist and pink, eyes are clear, normal conjunctiva, vision is grossly intact, no scleral icterus Chest: Lungs are clear to auscultation with good air entry, there is no wheezing rhonchi or rales appreciated no accessory muscle use, patient is speaking in complete sentences-no chest wall tenderness to palpation CVS: Regular rate and rhythm S1-S2, no murmurs rubs or gallops, pulses are brisk and equal bilaterally ABD: Soft, flat, nondistended, epigastric tenderness to palpation, no pulsatile masses appreciated, there is no lower abdominal tenderness. There is no rebound guarding or rigidity Extremities: Moving all extremities, no lower extremity tenderness or swelling noted, negative Homans' sign, pulses are brisk and equal bilaterally Skin: Normal in appearance without rash,pallor, petechiae or purpura Neuro: No focal deficits Constitutional Vital Signs, click to edit/add: Last Vital Signs Temp 98.1 F 07/18/24 21:20 Pulse 93 H 07/19/24 00:19 Resp 20 07/19/24 00:19 BP 146/95 H 07/19/24 00:19 Pulse Ox 100 07/19/24 00:19 O2 Del Method Room Air 07/19/24 00:19 Course Vital Signs Vital signs: Vital Signs Temperature 98.1 F 07/18/24 21:20 Pulse Rate 90 07/18/24 21:20 Respiratory Rate 18 07/18/24 21:20 Blood Pressure 128/92 H 07/18/24 21:20 Pulse Oximetry 98 07/18/24 21:20 Oxygen Delivery Method Room Air 07/18/24 21:20 Temperature 98.1 F 07/18/24 21:20 Pulse Rate 93 H 07/19/24 00:19 Respiratory Rate 20 07/19/24 00:19 Blood Pressure 146/95 H 07/19/24 00:19 Pulse Oximetry 100 07/19/24 00:19 Oxygen Delivery Method Room Air 07/19/24 00:19 MDM - Nausea/Vomiting/Diarrhea MDM Narrative Medical decision making narrative: Patient presents for evaluation of epigastric abdominal pain with nausea vomiting and diarrhea stating that she is having an acute flare of her chronic pancreatitis. She has been seen here recently multiple times. The last time CT scan was I did not show any acute pancreatitis but did show some circumferential thickening of the GE junction. An IV was placed and she was medicated with IV fluids milligram of Dilaudid and Zofran. She did not have any additional episodes of nausea vomiting while in the emergency department but requested additional dose of Dilaudid. I explained to her that the last several times she has been here we held off on doing radiographic studies and her labs have been normal. They were normal again today. She has a normal white count and hemoglobin. Electrolytes are normal. Amylase and lipase are both within normal limits. Liver function tests are normal with the exception of a mildly elevated alkaline phosphatase. She remained stable in the emergency department and was given 2 doses of Dilaudid with clinical improvement. She was discharged home in stable condition. She has follow-up at [facility] in August for further evaluation and an additional nerve block for her pancreas allegedly. Lab Data Labs: Lab Results 07/18/24 Range/Units 22:20 WBC 12.0 H (4.0-11.0) 10^3/uL RBC 4.16 L (4.20-5.40) 10^6/uL Hgb 13.8 (12.0-16.0) g/dL Hct 40.8 (36.0-48.0) % MCV 98.1 (81.0-99.0) fL MCH 33.2 (26.7-34.0) pg MCHC 33.8 (29.9-35.2) g/dL RDW 12.7 (11.0-15.0) % Plt Count 247 (150-450) 10^3/uL MPV 9.9 (9.5-13.5) fL Neut % (Auto) 62.4 (43.0-75.0) % Lymph % (Auto) 25.6 (20.5-60.0) % [place] % (Auto) 9.3 (1.7-12.0) % Eos % (Auto) 1.8 (0.9-7.0) % Baso % (Auto) 0.6 (0.2-2.0) % Neut # (Auto) 7.5 H (1.4-6.5) 10^3/uL Lymph # (Auto) 3.1 (1.2-3.8) 10^3/uL [place] # (Auto) 1.1 H (0.3-0.8) 10^3/uL Eos # (Auto) 0.2 (0.0-0.7) 10^3/uL Baso # (Auto) 0.1 (0.0-0.1) 10^3/uL Abs Immat Gran (auto) 0.03 (0.00-0.03) 10^3/uL Imm/Tot Granulo (auto) 0.3 (0.0-0.5) % Sodium 140 (136-145) mmol/L Potassium 3.5 (3.5-5.1) mmol/L Chloride 105 (98-107) mmol/L Carbon Dioxide 26.2 (21.0-32.0) mmol/L Anion Gap 12.3 BUN 11.0 (7.0-18.0) mg/dL Creatinine 0.90 (0.55-1.02) mg/dL Est GFR ( Amer) >60 (>=60 mL/min/1.73m^2) Est GFR (Non-Af Amer) >60 (>=60 mL/min/1.73m^2) BUN/Creatinine Ratio 12.2 Glucose 104 (74-106) mg/dL Calcium 9.5 (8.5-10.1) mg/dL Total Bilirubin 0.1 L (0.2-1.0) mg/dL AST 15 (15-37) U/L ALT 18 (14-59) U/L Alkaline Phosphatase 125 H (46-116) U/L Total Protein 6.6 (6.4-8.2) g/dL Albumin 3.4 (3.4-5.0) g/dL Globulin 3.2 g/dL Albumin/Globulin Ratio 1.1 Amylase 101 (25-115) U/L Lipase 60.0 (16.0-77.0) U/L Discharge Plan Discharge Chief Complaint: Nausea/Vomiting/Diarrhea Clinical Impression: Chronic pancreatitis, Abdominal pain Patient Disposition: Home, Self-Care Time of Disposition Decision: 00:05 Condition: Good Mode of Transportation: Private Vehicle Prescriptions / Home Meds: No Action oxycodone-acetaminophen 5-325 mg tablet promethazine 25 mg tablet Print Language: Palestinian Instructions: Chronic Abdominal Pain (DC) Referrals: [facility] [Primary Care Provider, Unknown] - 1 week Discharge Date/Time: 07/19/24 00:22
== END 2024-07-19 00:22 | disposition home or self-care (01) ==
PROVIDERS: Emergency Provider Emergency Medicine
DX: K86.1 Other chronic pancreatitis (principal); R10.84 Generalized abdominal pain; R10.13 Epigastric pain; R11.2 Nausea with vomiting, unspecified; R19.7 Diarrhea, unspecified
CPT/HCPCS: 36415; 80053; 82150; 83690; 85025; 96361; 96374; 96375; 96376; 99285; J1171; J2405

== ENCOUNTER 2024-07-26 21:14 | Emergency (ER) | payer OTHER, SELFPAY ==
[2024-07-26 21:20] VITALS: BP 126/58; PULSE 97; TEMP 36.7; O2SAT 99; BMI 24.7
--- OUTSIDE RECORDS SUMMARY | 2024-07-26 21:21 | XMS_ITS | CCD ---
Author Organization [facility] Care Team Providers Care Undercar Specialist Name Role Phone MagdalenaAlexander Unavailable MAGDALENA ALEXANDER Unavailable Unavailable COPC SACHIN, GENERIC Unavailable Unavailable COPC SACHIN, GENERIC Unavailable Unavailable ALIRIO NEGRO Unavailable Unavailable LI MARILEEWA Unavailable Unavailable JOANA MENDES Unavailable Unavailable LIMARILEEWA Unavailable Unavailable ERROL WALTON Unavailable Unavaila ble LI ALEXANDER Unavailable Unavailable KEERTHI NGUYEN Unavailable Unavailable COPC SACHIN, GENERIC Unavailable Unavailable KEERTHI NGUYEN Unavailable Unavailable LI KEWA Unavailable Unavailable [facility], [facility] Unavailable Unav ailable EUGENIA SHELTON Unavailable Unavailable [facility], [facility] Unavailable Unav ailable Unavailable Primary Care Provider Unavailflorida Nichols Alexander Primary Care Provider Unavailable Primary Care Provider UnavailMarya Guajardo Unavailable NON STAFF Primary Care Provider UnavailDO Keaton Thompson Emergency Provider [phone] SALMA Amor Emergency Provider [phone] SALMA Lopez Emergency Provider Woodrow ALEXANDER, Pineda Rock Unavailable [phone] [facility], Other Primary Care Provi mathew NON STAFF Primary Care Provider MD Agustin Baker Emergency Provider [phone] DR TRI HANSON Consulting Unavailable ARIC CHAUDHARY Attending Unavailable ARIC CHAUDHARY Admitting Unavailable [facility] Care Unavailable JANUSZ ., ARIC Consulting Unavailable AGUSTIN MADRIGAL Consulting Unavailable YANNI FRASER Attending Unavailable YANNI FRASER Admitting Unavailable [facility] Primary Care Unavailable HEBERT MCPHERSON Consulting Unavailable AMINATA, DR RAJEEV Chan Consulting Unavailable AMINATA, DR RAJEEV Chan Attending Unavailable AMINATA, DR RAJEEV Chan Admitting Unavailable [facility] Primary Care Unavailable JANNY ., ANKIT BOYKIN Consulting Unavailabl e IGGY ., MONIK Attending Unavailable IGGY ., MONIK Admitting Unavailable GRECHNY ., ANKIT BOYKIN [facility] ANNELIESE, NICK Consulting Unavailable JANUSZ ., ARIC Consulting Unavailable AGUSTIN HIGHTOWER Consulting Unavailable ROLAN EUCEDA Consulting Unavailable AMINATA, DR RAJEEV Chan Consulting Unavailable BRIANNA, DR SHARON Silveira Attending Unavaillegacy [facility] REINECK, DR SHARON Silveira [facility] Unavailable BRIANNA, DR SHARON Silveira Consulting Unavaillegacy [facility] HANS ., NAT Consulting Unavailable HANS ., NAT Consulting Unavailable PAY ., DR MACEDO Attending Unavailable PAY ., DR MACEDO Admitting Unavailable [facility] Primary Care Unavailable ANNELIESE, NICK Consulting Unavailable ANNELIESE, NICK Attending Unavailable ANNELIESE, NICK Admitting Unavailable [facility] Primary Care Unavailable MILDAIS BARRERA Consulting Unavailable JANUSZ ., ARIC Attending Unavailable JANUSZ ., ARIC Admitting Unavailable JANUSZ ., ARIC Consulting Unavailable [facility] Primary Care Unavailable ION KRUSE Consulting Unavailable YANNI FRASER Attending Unavailable YANNI FRASER Admitting Unavailable JANNY ., ANKIT BOYKIN [facility] Unavailable LYNNE PERDOMO Consulting Unavailable JANUSZ ., ARIC Attending Unavailable JANUSZ ., ARIC Admitting Unavailable [facility] Primary Care Unavailable JANUSZ ., ARIC Consulting Unavailable DIAB ., ELENITA Consulting Unavailable DIAB ., ELENITA Attending Unavailable DIAB ., ELENITA Admitting Unavailable [facility] Primary Care Unavailable PAY ., DR MACEDO Consulting Unavailable PAY ., DR MACEDO Attending Unavailable PAY ., DR MACEDO Admitting Unavailable [facility] Primary Care Unavailable ANNELIESE, NICK Consulting Unavailable ANNELIESE, NICK Attending Unavailable ANNELIESE, NICK Admitting Unavailable [facility] Primary Care Unavailable AGUSTIN HIGHTOWER Unavailable DR RAJEEV KELLOGG Consulting Unavailable TANVIR Herron, DR GRANT Attending Unavailable TANVIR ., DR GRANT Admitting Unavailable [facility] Primary Care Unavailable TANVIR Herron, DR GRANT Consulting Unavailable NON STAFF Primary Care Provider Unavailabl e Saffle, LABEL PRINTER Nicole N Emergency Provider NON STAFF Primary Care Provider Unavailabl e Saffle, LABEL PRINTER Nicole N Emergency Provider DO Rivera Lopez Emergency Provider MD Xiang Kellogg Emergency Provider Woodrow ALEXANDER, Pineda T Unavailable [facility], Other Primary [...] Attending Unavailable Woodrow ALEXANDER, Pineda T Unavailable [phone] SABRINA DEE Attending Unavailabl e [facility], OTHER Primary Care Un available SELF, SELF Referring Unavailable SABRINA DEE Attending Unavailabl e SABRINA DEE Referring Unavailabl e [facility], OTHER Primary Care Un available SABRINA DEE Referring Unavailabl e [facility], OTHER Primary Care Un available SABRINA DEE Attending Unavailabl e Unavailable Primary Care Provider Unavailabl e PETER ESCALERA Attending Unavailable Services, [facility] Primary Care Provider SERVICES, [facility] Primary Care Unava ilable STEPHANIE MAHMOOD Attending Unavailable SERVICES, [facility] Primary Care Unava ilable TABITHA NEWELL Attending Unavailable SERVICES, [facility] Primary Care Unava ilable AGUSTIN MICHAEL Attending Unavaila ble SERVICES, [facility] Primary Care Unava ilable VIVIAN TRINH Attending Unavailable SERVICES, [facility] Primary Care Unava EMILIE Acosta Attending Unavailable SERVICES, [facility] TABITHA Childers Attending Unavailable SERVICES, [facility] UnaJYOTHI Morales Attending Unavailable Allergies Allergy Classification Reported Allergen(s) Allergy Type Date of Onset Reaction(s) Facility DOPamine Antagonists (1 source) Metoclopramide Drug Allergy 07-20-19 17 Anxiety [facility] Haloperidol (1 source) Haloperidol Drug Allergy 06-02-19 16 [facility] NSAIDs (1 source) Ibuprofen Drug Allergy 10-31-19 13 Hives, Swelling [facility] Opioid Agonists (2 sources) Morphine Drug Allergy 10-24-19 15 [facility] Penicillins (antibiotic) (1 source) Penicillins Drug Allergy 10-31-19 13 Swelling [facility] Work Phone: (20 sources) haloperidol; Translations: [HALOPERIDOL] Propensity to adverse reactions to drug 06-02-[address] [facility] (20 sources) ibuprofen; Translations: [IBUPROFEN] Propensity to adverse reactions to drug 10-31-19 13 Hives, Swelling, Anaphylaxis [facility] (6 sources) metoclopramide; Translations: [METOCLOPRAMIDE HCL] Propensity to adverse reactions to drug 07-01-[address] [facility] (6 sources) penicillin g; Translations: [PENICILLIN G] Propensity to adverse reactions to drug 07-25-[address] [facility] (20 sources) traMADol; Translations: [TRAMADOL] Propensity to adverse reactions to drug 07-25-[address] [facility] (20 sources) morphine; Translations: [MORPHINE] Drug Allergy 07-16-[address] [facility] (9 sources) Enoxaparin; Translations: [ENOXAPARIN] Drug Allergy 08-23-19 20 Itching, Rash [place], [place] (5 sources) Haloperidol Drug Allergy 10-20-19 18 Swelling [place], [place] (16 sources) Penicillins; Translations: [PENICILLINS] Propensity to adverse reactions to drug 10-31-19 13 Anaphylaxis, Swelling [place] (2 sources) Haloperidol; Translations: [Haldol] Drug Allergy 08-10-19 19 Unknown [facility] Repository (15 sources) fentaNYL; Translations: [Fentanyl] Drug Allergy 09-13-[address] [facility] (13 sources) Ketorolac; Translations: [ketorolac] Drug Allergy 06-13-[address] [facility] (6 sources) Ketorolac Drug Allergy 12-17-19 22 Hives, Itching [facility] (11 sources) Metoclopramide; Translations: [METOCLOPRAMIDE] Drug Allergy 07-01-19 17 Anxiety [facility] (1 source) Ibuprofen Drug Allergy 01-09-20 13 [facility] (1 source) Ketorolac Drug Allergy [facility] (1 source) Morphine Drug Allergy 08-10-19 19 [facility] Rep[facility] (1 source) Penicillins Drug allergy (disorder) 01-09-20 13 [facility] (1 source) traMADol Drug Allergy 01-09-20 13 [facility] (3 sources) Ketorolac trometamol Propensity to adverse reactions to drug 12-17-19 22 Hives, Itching [facility] (2 sources) Penicillins Propensity to adverse reactions to drug 10-31-19 13 Swelling [facility] Work Phone: (1 source) Haloperidol Drug Allergy 04-18-19 [facility] Repository (1 source) Ibuprofen Drug Allergy 04-18-19 [facility] Repository (1 source) Morphine Drug Allergy 04-18-19 [facility] Repository (1 source) Penicillins Drug allergy (disorder) 04-18-19 [facility] Rep[facility] (1 source) traMADol Drug Allergy 04-18-19 [facility] Repository (7 sources) Penicillins Propensity to adverse reactions to drug 10-10-19 18 Anaphylaxis [facility] (1 source) Prochlorperazine; Translations: [PROCHLORPERAZINE] Drug [...] 30 tablet 11 12/01/2019 05/11/2023 Discontinued amylase 465236 unt / lipase 32705 unt / protease 54076 unt delayed release oral capsule (19 sources) Start: 12-23-2023 take 3 capsules by mouth twice daily at mealtime Pancreatic enzymes (Creon) 42191-005[address]-496477 units Cap DR Particles capsule Take 3 capsules by mouth 2 times daily with meals. 180 capsule 11 12/23/2023 Active Start: 05-11-2023 take 3 capsules by m outh twice daily at mealtime Pancreatic enzymes (Creon) 35358-[address] Particles capsule Take 3 capsules by mouth 2 times daily with meals. 180 capsule 11 05/11/2023 Active Start: 12-16-2021 End: 05-11-2023 take 2 capsules by mouth three times daily at mealtime Pancreatic enzymes (Creon) 87379-[address] Particles capsule Take 2 [...] by mouth every week Ergocalciferol 1.25 MG (83796 UT) capsule Take 1 capsule by mouth once a week. 8 capsule 05/11/2023 Active Start: 01-28-2022 End: 03-19-2022 take 1 capsule by mouth every week ergocalciferol 1.25 MG (47056 UT) capsule Take 1 capsule by mouth [...] mg by mouth daily . 0 Active Jennette (No Known Home Meds) (1 source) Start: 10-09-2021 Jennette (No Known Home Meds) Active October 09, [...] hours Ondansetron Discontinued 4 MG PO Q6H 14 March 28, 2020 12:00am May 16, 2020 [...] tablet 1 09/29/2023 Active polyethylene glycol 3350 91363 mg powder for oral solution (1 source) [...] Starting on Eladia 04/07/24 at 1537, Until Thu04/07/24 at 1543, Other Start: 03-26-2020 End: 03-26-2020 [...] [OBSTRUCTION OF BILE DUCT] Onset: 3 Chronic Disorders of teeth and jaw (3 sources) Periapical abscess without sinus; Translations: [Other specified disorders of teeth and supporting structures] Onset: 5 Episodic Esophageal disorders (1 source) Gastroesophageal reflux disease [...] fracture] Chronic Other aftercare (1 source) 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 wall mining 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 helper (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) drug therapy; Translations: [OTH FDC CURRENT DRUG THERAPY] Onset: 3 Episodic Other [...] 25 ABSOLUTE BASOPHIL 0.1 X10E9/L Normal 0.0-0.2 [facility] Comment on above: Performed By: #### C BCA, BMP, 61396-7, LIVR, 37953-4, 98984-8, 5643-2, 3040-3 #### [facility] ([id number]) [address] [place] [address] 53774 ABSOLUTE NEUTROPHIL 4.9 X10E9/L Normal 1.5-6.6 [facility] Comment on above: Performed By: #### C BCA, BMP, 41681-0, LIVR, 63715-9, 69279-5, 5643-2, 3040-3 #### [facility] ([id number]) [address] [place] [address] 49042 Basophils/100 WBC (Bld) 1.2 % Normal [facility] Comment on above: Performed By: #### C BCA, BMP, 97397-5, LIVR, 68358-0, 89785-4, 5643-2, 3040-3 #### [facility] ([id number]) [address] [place] [address] 36477 Eosinophils (Bld) [#/Vol] 0.1 10*3/uL Normal 0.0-0.4 [facility] Comment on above: Performed By: #### C BCA, BMP, 80772-4, LIVR, 62849-1, 34635-7, 5643-2, 3040-3 #### [facility] ([id number]) [address] [place] [address] 90294 Eosinophils/100 WBC (Bld) 1.3 % Normal [facility] Comment on above: Performed By: #### C BCA, BMP, 60761-7, LIVR, 99836-4, 91425-2, 5643-2, 3040-3 #### [facility] ([id number]) [address] [place] [address] 09320 Erythrocyte distribution width (RBC) [Ratio] 13.1 % Normal 11.5-15.0 [facility] Comment on above: Performed By: #### C BCA, BMP, 59007-4, LIVR, 07151-1, 15604-9, 5643-2, 3040-3 #### [facility] ([id number]) [address] [place] [address] 23129 Hematocrit (Bld) [Volume fraction] 40.9 % Normal 35-47 [facility] Comment on above: Performed By: #### C BCA, BMP, 44597-4, LIVR, 23659-0, 34507-9, 5643-2, 3040-3 #### [facility] ([id number]) [address] [place] [address] 21504 Hemoglobin (Bld) [Mass/Vol] 14.3 g/dL Normal 11.7-15.5 [facility] Comment on above: Performed By: #### C BCA, BMP, 32314-8, LIVR, 24252-6, 47431-2, 5643-2, 3040-3 #### [facility] ([id number]) [address] [place] [address] 61199 Lymphocytes (Bld) [#/Vol] 2.3 10*3/uL Normal 1.0-3.5 [facility] Comment on above: Performed By: #### C BCA, BMP, 41372-1, LIVR, 94895-3, 83006-3, 5643-2, 3040-3 #### [facility] ([id number]) [address] [place] [address] 04202 Lymphocytes/100 WBC (Bld) 27.6 % Normal [facility] Comment on above: Performed By: #### C BCA, BMP, 00063-2, LIVR, 55256-3, 96535-5, 5643-2, 3040-3 #### [facility] ([id number]) [address] [place] [address] 60313 MCH (RBC) [Entitic mass] 34.2 pg High 27-34 [facility] Comment on above: Performed By: #### C BCA, BMP, 26749-1, LIVR, 56203-7, 39503-0, 5643-2, 3040-3 #### [facility] ([id number]) [address] [place] [address] 77850 MCHC (RBC) [Mass/Vol] 35.0 g/dL Normal 32-36 [facility] Comment on above: Performed By: #### C BCA, BMP, 32270-6, LIVR, 11531-8, 02726-2, 5643-2, 3040-3 #### [facility] ([id number]) [address] [place] [address] 32893 MCV (RBC) [Entitic vol] 98 fL Normal 80-100 [facility] Comment on above: Performed By: #### C BCA, BMP, 57329-0, LIVR, 81715-1, 74460-7, 5643-2, 3040-3 #### [facility] ([id number]) [address] [place] [address] 20749 Monocytes (Bld) [#/Vol] 1.0 10*3/uL High 0-0.9 [facility] Comment on above: Performed By: #### C BCA, BMP, 60851-1, LIVR, 09972-9, 18810-8, 5643-2, 3040-3 #### [facility] ([id number]) [address] [place] [address] 40057 Monocytes/100 WBC (Bld) 11.4 % Normal [facility] Comment on above: Performed By: #### C BCA, BMP, 29947-3, LIVR, 24452-7, 02003-2, 5643-2, 3040-3 #### [facility] ([id number]) [address] [place] [address] 77635 Neutrophils/100 WBC (Bld) 58.5 % Normal [facility] Comment on above: Performed By: #### C BCA, BMP, 61502-7, LIVR, 89813-0, 08493-7, 5643-2, 3040-3 #### [facility] ([id number]) [address] [place] [address] 91708 Platelet mean volume (Bld) [Entitic vol] 7.9 fL Normal 7-12 [facility] Comment on above: Performed By: #### C BCA, BMP, 69189-8, LIVR, 26129-7, 04734-9, 5643-2, 3040-3 #### [facility] ([id number]) [address] [place] [address] 22358 Platelets (Bld) [#/Vol] 267 10*3/uL Normal 150-450 [facility] Comment on above: Performed By: #### C BCA, BMP, 17873-5, LIVR, 88744-8, 03058-2, 5643-2, 3040-3 #### [facility] ([id number]) [address] [place] [address] 72414 RBC COUNT 4.18 X10E12/L Normal 3.80-5.20 [facility] Comment on above: Performed By: #### C BCA, BMP, 38993-3, LIVR, 67500-0, 68197-9, 5643-2, 3040-3 #### [facility] ([id number]) [address] [place] [address] 50196 WBC (Bld) [#/Vol] 8.4 10*3/uL Normal 4.0-11.0 [facility] Comment on above: Performed By: #### C BCA, BMP, 21221-1, LIVR, 94082-0, 55743-4, 5643-2, 3040-3 #### [facility] ([id number]) [address] [place] [address] 49885 COMPREHENSIVE METABOLIC PANE Nimesh 06-27-2024 Albumin [Mass/Vol] 4.1 g/dL Normal 3.2-5.3 [facility] Comment on above: Performed By: #### C BCA, BMP, 06735-3, LIVR, 21636-1, 24425-5, 5643-2, 3040-3 #### [facility] ([id number]) [address] [place] [address] 61244 ALP [Catalytic activity/Vol] 133 U/L High 39-130 [facility] Comment on above: Performed By: #### C BCA, BMP, 56695-7, LIVR, 70144-4, 21025-2, 5643-2, 3040-3 #### [facility] ([id number]) [address] [place] [address] 40796 ALT [Catalytic activity/Vol] 14 U/L Normal 0-31 [facility] Comment on above: Performed By: #### C BCA, BMP, 85661-5, LIVR, 91947-0, 06838-6, 5643-2, 3040-3 #### [facility] ([id number]) [address] [place] [address] 14787 Anion gap [Moles/Vol] 8 mmol/L Normal 5-15 [facility] Comment on above: Performed By: #### C BCA, BMP, 95544-0, LIVR, 56076-9, 08701-7, 5643-2, 3040-3 #### [facility] ([id number]) [address] [place] [address] 28459 AST [Catalytic activity/Vol] 19 U/L Normal 0-41 [facility] Comment on above: Performed By: #### C BCA, BMP, 46787-8, LIVR, 44596-3, 72589-1, 5643-2, 3040-3 #### [facility] ([id number]) [address] [place] [address] 42914 Bilirubin [Mass/Vol] 0.3 mg/dL Normal 0.3-1.2 [facility] Comment on above: Performed By: #### C BCA, BMP, 30711-0, LIVR, 88524-0, 68265-0, 5643-2, 3040-3 #### [facility] ([id number]) [address] [place] [address] 76724 Calcium [Mass/Vol] 10.7 mg/dL High 8.5-10.5 [facility] Comment on above: Performed By: #### C BCA, BMP, 23655-4, LIVR, 15046-8, 29257-4, 5643-2, 3040-3 #### [facility] ([id number]) [address] [place] [address] 94044 Chloride [Moles/Vol] 104 mmol/L Normal 98-109 [facility] Comment on above: Performed By: #### C BCA, BMP, 32746-2, LIVR, 71898-6, 15650-0, 5643-2, 3040-3 #### [facility] ([id number]) [address] [place] [address] 24388 CO2 [Moles/Vol] 26 mmol/L Normal 22-32 [facility] Comment on above: Performed By: #### C BCA, BMP, 79660-7, LIVR, 78978-3, 76439-8, 5643-2, 3040-3 #### [facility] ([id number]) [address] [place] [address] 51929 Creatinine [Mass/Vol] 0.76 mg/dL Normal 0.40-1.00 [facility] Comment on above: Result Comment: METH OD TRACEABLE TO IDMS STANDARD Performed By: #### C BCA, BMP, 72818-2, LIVR, 37387-1, 27756-3, 5643-2, 3040-3 #### [facility] ([id number]) [address] [place] [address] 69799 eGFR (CKD-EPI) NON-RACE DEPENDENT >90 Normal >59 [facility] Comment on above: Result Comment: Reported eGFR is based on the CKD-EPI 2020 equation that does not use a race coefficient. Performed By: #### C BCA, BMP, 83135-3, LIVR, 38708-6, 60627-2, 5643-2, 3040-3 #### [facility] ([id number]) [address] [place] [address] 31221 Glucose [Mass/Vol] 106 mg/dL High 65-99 [facility] Comment on above: Performed By: #### C BCA, BMP, 65100-1, LIVR, 90654-5, 24303-1, 5643-2, 3040-3 #### [facility] ([id number]) [address] [place] [address] 95727 Potassium [Moles/Vol] 3.9 mmol/L Normal 3.5-5.0 [facility] Comment on above: Performed By: #### C BCA, BMP, 27982-3, LIVR, 96688-8, 66158-0, 5643-2, 3040-3 #### [facility] ([id number]) [address] [place] [address] 84935 Protein [Mass/Vol] 7.0 g/dL Normal 6.0-8.0 [facility] Comment on above: Performed By: #### C BCA, BMP, 34308-0, LIVR, 15440-2, 64772-4, 5643-2, 3040-3 #### [facility] ([id number]) [address] [place] [address] 79722 Sodium [Moles/Vol] 138 mmol/L Normal 134-146 [facility] Comment on above: Performed By: #### C BCA, BMP, 93120-9, LIVR, 41598-7, 10633-5, 5643-2, 3040-3 #### [facility] ([id number]) [address] [place] [address] 98194 Urea nitrogen [Mass/Vol] 10 mg/dL Normal 5-23 [facility] Comment on above: Performed By: #### C BCA, BMP, 03722-9, LIVR, 01152-7, 18721-0, 5643-2, 3040-3 #### [facility] ([id number]) [address] [place] [address] 03971 LIPASEon 06-27-2024 Lipase [Catalytic activity/Vol] 37 U/L Normal 17-40 [facility] Comment on above: Performed By: #### C BCA, BMP, 93471-6, LIVR, 38640-0, 58481-9, 5643-2, 3040-3 #### [facility] ([id number]) [address] [place] [address] 18763 BASIC METABOLIC PANLon 06-15 Anion gap [Moles/Vol] 8 mmol/L Normal 5-15 [facility] Comment on above: Performed By: #### C BCA, BMP, 58811-7, LIVR, 23035-2, 73580-2, 5643-2, 3040-3 #### [facility] ([id number]) [address] [place] [address] 83592 Calcium [Mass/Vol] 9.7 mg/dL Normal 8.5-10.5 [facility] Comment on above: Performed By: #### C BCA, BMP, 56630-6, LIVR, 79728-8, 11382-8, 5643-2, 3040-3 #### [facility] ([id number]) [address] [place] [address] 50790 Chloride [Moles/Vol] 105 mmol/L Normal 98-109 [facility] Comment on above: Performed By: #### C BCA, BMP, 45944-6, LIVR, 38518-2, 58332-1, 5643-2, 3040-3 #### [facility] ([id number]) [address] [place] [address] 05125 CO2 [Moles/Vol] 24 mmol/L Normal 22-32 [facility] Comment on above: Performed By: #### C BCA, BMP, 08442-9, LIVR, 56743-5, 78049-4, 5643-2, 3040-3 #### [facility] ([id number]) [address] [place] [address] 68469 Creatinine [Mass/Vol] 0.78 mg/dL Normal 0.40-1.00 [facility] Comment on above: Result Comment: METH OD TRACEABLE TO IDMS STANDARD Performed By: #### C BCA, BMP, 37941-6, LIVR, 98492-5, 90139-9, 5643-2, 3040-3 #### [facility] ([id number]) [address] [place] [address] 01490 eGFR (CKD-EPI) NON-RACE DEPENDENT >90 Normal >59 [facility] Comment on above: Result Comment: Reported eGFR is based on the CKD-EPI 2020 equation that does not use a race coefficient. Performed By: #### C BCA, BMP, 35913-8, LIVR, 00283-2, 15626-5, 5643-2, 3040-3 #### [facility] ([id number]) [address] [place] [address] 16386 Glucose [Mass/Vol] 97 mg/dL Normal 65-99 [facility] Comment on above: Performed By: #### C BCA, BMP, 29286-7, LIVR, 27662-5, 79758-6, 5643-2, 3040-3 #### [facility] ([id number]) [address] [place] [address] 56499 Potassium [Moles/Vol] 3.3 mmol/L Low 3.5-5.0 [facility] Comment on above: Performed By: #### C BCA, BMP, 72500-9, LIVR, 46197-0, 87115-4, 5643-2, 3040-3 #### [facility] ([id number]) [address] [place] [address] 81484 Sodium [Moles/Vol] 137 mmol/L Normal 134-146 [facility] Comment on above: Performed By: #### C BCA, BMP, 01805-5, LIVR, 49906-4, 43483-4, 5643-2, 3040-3 #### [facility] ([id number]) [address] [place] [address] 22587 Urea nitrogen [Mass/Vol] 9 mg/dL Normal 5-23 [facility] Comment on above: Performed By: #### C BCA, BMP, 47648-6, LIVR, 34081-0, 66007-5, 5643-2, 3040-3 #### [facility] ([id number]) [address] [place] [address] 22567 CBC AND AUTO DIFFon 06-16-19 25 ABSOLUTE BASOPHIL 0.1 X10E9/L Normal 0.0-0.2 [facility] Comment on above: Performed By: #### C BCA, BMP, 57501-9, LIVR, 11341-0, 89020-9, 5643-2, 3040-3 #### [facility] ([id number]) [address] [place] [address] 50881 ABSOLUTE NEUTROPHIL 6.2 X10E9/L Normal 1.5-6.6 [facility] Comment on above: Performed By: #### C BCA, BMP, 17251-0, LIVR, 51140-6, 05081-7, 5643-2, 3040-3 #### [facility] ([id number]) [address] [place] [address] 79773 Basophils/100 WBC (Bld) 0.9 % Normal [facility] Comment on above: Performed By: #### C BCA, BMP, 01994-4, LIVR, 52890-1, 83635-7, 5643-2, 3040-3 #### [facility] ([id number]) [address] [place] [address] 36068 Eosinophils (Bld) [#/Vol] 0.1 10*3/uL Normal 0.0-0.4 [facility] Comment on above: Performed By: #### C BCA, BMP, 55827-9, LIVR, 44446-3, 11234-0, 5643-2, 3040-3 #### [facility] ([id number]) [address] [place] [address] 58235 Eosinophils/100 WBC (Bld) 1.1 % Normal [facility] Comment on above: Performed By: #### C BCA, BMP, 15103-2, LIVR, 58259-2, 28368-1, 5643-2, 3040-3 #### [facility] ([id number]) [address] [place] [address] 55867 Erythrocyte distribution width (RBC) [Ratio] 13.3 % Normal 11.5-15.0 [facility] Comment on above: Performed By: #### C BCA, BMP, 31549-5, LIVR, 60812-2, 04318-5, 5643-2, 3040-3 #### [facility] ([id number]) [address] [place] [address] 11121 Hematocrit (Bld) [Volume fraction] 42.3 % Normal 35-47 [facility] Comment on above: Performed By: #### C BCA, BMP, 78566-7, LIVR, 65820-4, 17000-8, 5643-2, 3040-3 #### [facility] ([id number]) [address] [place] [address] 17779 Hemoglobin (Bld) [Mass/Vol] 14.3 g/dL Normal 11.7-15.5 [facility] Comment on above: Performed By: #### C BCA, BMP, 18586-1, LIVR, 67908-8, 18024-0, 5643-2, 3040-3 #### [facility] ([id number]) [address] [place] [address] 98290 Lymphocytes (Bld) [#/Vol] 2.6 10*3/uL Normal 1.0-3.5 [facility] Comment on above: Performed By: #### C BCA, BMP, 62781-3, LIVR, 61259-2, 25694-2, 5643-2, 3040-3 #### [facility] ([id number]) [address] [place] [address] 75043 Lymphocytes/100 WBC (Bld) 26.2 % Normal [facility] Comment on above: Performed By: #### C BCA, BMP, 71709-9, LIVR, 49956-5, 27160-6, 5643-2, 3040-3 #### [facility] ([id number]) [address] [place] [address] 55781 MCH (RBC) [Entitic mass] 33.5 pg Normal 27-34 [facility] Comment on above: Performed By: #### C BCA, BMP, 70781-7, LIVR, 69915-7, 02316-2, 5643-2, 3040-3 #### [facility] ([id number]) [address] [place] [address] 02925 MCHC (RBC) [Mass/Vol] 33.8 g/dL Normal 32-36 [facility] Comment on above: Performed By: #### C BCA, BMP, 44945-3, LIVR, 65287-1, 91569-2, 5643-2, 3040-3 #### [facility] ([id number]) [address] [place] [address] 03446 MCV (RBC) [Entitic vol] 99 fL Normal 80-100 [facility] Comment on above: Performed By: #### C BCA, BMP, 99561-3, LIVR, 10948-4, 89509-4, 5643-2, 3040-3 #### [facility] ([id number]) [address] [place] [address] 73231 Monocytes (Bld) [#/Vol] 0.8 10*3/uL Normal 0-0.9 [facility] Comment on above: Performed By: #### C BCA, BMP, 74583-9, LIVR, 22588-1, 63628-2, 5643-2, 3040-3 #### [facility] ([id number]) [address] [place] [address] 66865 Monocytes/100 WBC (Bld) 8.3 % Normal [facility] Comment on above: Performed By: #### C BCA, BMP, 40569-9, LIVR, 81045-6, 59655-3, 5643-2, 3040-3 #### [facility] ([id number]) [address] [place] [address] 15741 Neutrophils/100 WBC (Bld) 63.5 % Normal [facility] Comment on above: Performed By: #### C BCA, BMP, 09524-4, LIVR, 54438-4, 10608-6, 5643-2, 3040-3 #### [facility] ([id number]) [address] [place] [address] 27242 Platelet mean volume (Bld) [Entitic vol] 8.0 fL Normal 7-12 [facility] Comment on above: Performed By: #### C BCA, BMP, 74659-0, LIVR, 34978-9, 67091-6, 5643-2, 3040-3 #### [facility] ([id number]) [address] [place] [address] 31586 Platelets (Bld) [#/Vol] 263 10*3/uL Normal 150-450 [facility] Comment on above: Performed By: #### C BCA, BMP, 05190-4, LIVR, 78412-5, 75172-7, 5643-2, 3040-3 #### [facility] ([id number]) [address] [place] [address] 10040 RBC COUNT 4.28 X10E12/L Normal 3.80-5.20 [facility] Comment on above: Performed By: #### C BCA, BMP, 27812-1, LIVR, 94666-6, 55255-6, 5643-2, 3040-3 #### [facility] ([id number]) [address] [place] [address] 62397 WBC (Bld) [#/Vol] 9.8 10*3/uL Normal 4.0-11.0 [facility] Comment on above: Performed By: #### C BCA, BMP, 06999-3, LIVR, 36570-9, 76910-3, 5643-2, 3040-3 #### [facility] ([id number]) [address] [place] [address] 48247 ETHANOLon 06-15-2024 Ethanol [Mass/Vol] mg/dL Normal 0.00-0.08 [facility] Comment on above: Result Comment: This report is intended for use in clinical monitoring or management of patients. Performed By: #### C BCA, BMP, 56226-1, LIVR, 00662-4, 45214-2, 5643-2, 3040-3 #### [facility] ([id number]) [address] [place] [address] 24076 LIPASEon 06-15-2024 Lipase [Catalytic activity/Vol] 83 U/L High 17-40 [facility] Comment on above: Performed By: #### C BCA, BMP, 89481-4, LIVR, 24310-8, 26713-5, 5643-2, 3040-3 #### [facility] ([id number]) [address] [place] [address] 05582 LIVER PANELon 06-15-2024 Albumin [Mass/Vol] 4.2 g/dL Normal 3.2-5.3 [facility] Comment on above: Performed By: #### C BCA, BMP, 51709-0, LIVR, 93356-4, 92435-5, 5643-2, 3040-3 #### [facility] ([id number]) [address] [place] [address] 84461 ALP [Catalytic activity/Vol] 106 U/L Normal 39-130 [facility] Comment on above: Performed By: #### C BCA, BMP, 90207-0, LIVR, 40970-0, 27280-6, 5643-2, 3040-3 #### [facility] ([id number]) [address] [place] [address] 10943 ALT [Catalytic activity/Vol] 12 U/L Normal 0-31 [facility] Comment on above: Performed By: #### C BCA, BMP, 90044-6, LIVR, 44259-9, 76111-8, 5643-2, 3040-3 #### [facility] ([id number]) [address] [place] [address] 47276 AST [Catalytic activity/Vol] 18 U/L Normal 0-41 [facility] Comment on above: Performed By: #### C BCA, BMP, 69361-4, LIVR, 77855-1, 57068-7, 5643-2, 3040-3 #### [facility] ([id number]) [address] [place] [address] 55825 Bilirubin [Mass/Vol] 0.3 mg/dL Normal 0.3-1.2 [facility] Comment on above: Performed By: #### C BCA, BMP, 83127-2, LIVR, 82199-0, 99488-8, 5643-2, 3040-3 #### [facility] ([id number]) [address] [place] [address] 90748 Bilirubin.indirect [Mass/Vol] mg/dL Normal 0.0-0.4 [facility] Comment on above: Performed By: #### C BCA, BMP, 85575-5, LIVR, 10043-6, 84608-0, 5643-2, 3040-3 #### [facility] ([id number]) [address] [place] [address] 02804 Protein [Mass/Vol] 7.0 g/dL Normal 6.0-8.0 [facility] Comment on above: Performed By: #### C BCA, BMP, 93546-4, LIVR, 04996-3, 92120-0, 5643-2, 3040-3 #### [facility] ([id number]) [address] [place] [address] 98093 Lactate (P richadr) [Moles/Vol]o n 06-15-2024 LACTATE W/REFLEX 1.1 mmol/L Normal 0.4-2.0 [facility] Comment on above: Result Comment: Result did not trigger repeat Lactate, re-order if needed. Performed By: #### C BCA, BMP, 97437-8, LIVR, 28104-5, 06184-8, 5643-2, 3040-3 #### [facility] ([id number]) [address] [place] [address] 98548 MAGNESIUMon 06-15-2024 Magnesium [Mass/Vol] 2.1 mg/dL Normal 1.8-2.6 [facility] Comment on above: Performed By: #### C BCA, BMP, 86721-3, LIVR, 02863-7, 09048-6, 5643-2, 3040-3 #### [facility] ([id number]) [address] [place] [address] 54985 CBC AND AUTO DIFFon 05-31- 25 ABSOLUTE BASOPHIL 0.1 X10E9/L Normal 0.0-0.2 [facility] Comment on above: Performed By: #### C BCA, BMP, 50857-0, LIVR, 88778-6, 36066-3, 5643-2, 3040-3 #### [facility] ([id number]) [address] [place] [address] 06083 ABSOLUTE NEUTROPHIL 7.2 X10E9/L High 1.5-6.6 [facility] Comment on above: Performed By: #### C BCA, BMP, 34892-2, LIVR, 44168-8, 93054-3, 5643-2, 3040-3 #### [facility] ([id number]) [address] [place] [address] 72436 Basophils/100 WBC (Bld) 1.3 % Normal [facility] Comment on above: Performed By: #### C BCA, BMP, 49123-5, LIVR, 07115-1, 44965-2, 5643-2, 3040-3 #### [facility] ([id number]) [address] [place] [address] 74602 Eosinophils (Bld) [#/Vol] 0.1 10*3/uL Normal 0.0-0.4 [facility] Comment on above: Performed By: #### C BCA, BMP, 47086-0, LIVR, 55897-9, 52843-2, 5643-2, 3040-3 #### [facility] ([id number]) [address] [place] [address] 25445 Eosinophils/100 WBC (Bld) 0.9 % Normal [facility] Comment on above: Performed By: #### C BCA, BMP, 62089-5, LIVR, 52965-2, 87791-9, 5643-2, 3040-3 #### [facility] ([id number]) [address] [place] [address] 24538 Erythrocyte distribution width (RBC) [Ratio] 13.1 % Normal 11.5-15.0 [facility] Comment on above: Performed By: #### C BCA, BMP, 12564-2, LIVR, 62883-4, 87601-8, 5643-2, 3040-3 #### [facility] ([id number]) [address] [place] [address] 99882 Hematocrit (Bld) [Volume fraction] 40.2 % Normal 35-47 [facility] Comment on above: Performed By: #### C BCA, BMP, 11221-1, LIVR, 42683-9, 86352-1, 5643-2, 3040-3 #### [facility] ([id number]) [address] [place] [address] 25328 Hemoglobin (Bld) [Mass/Vol] 14.0 g/dL Normal 11.7-15.5 [facility] Comment on above: Performed By: #### C BCA, BMP, 28599-4, LIVR, 68625-1, 39937-2, 5643-2, 3040-3 #### [facility] ([id number]) [address] [place] [address] 13185 Lymphocytes (Bld) [#/Vol] 2.7 10*3/uL Normal 1.0-3.5 [facility] Comment on above: Performed By: #### C BCA, BMP, 26091-5, LIVR, 98671-4, 70712-4, 5643-2, 3040-3 #### [facility] ([id number]) [address] [place] [address] 97200 Lymphocytes/100 WBC (Bld) 24.0 % Normal [facility] Comment on above: Performed By: #### C BCA, BMP, 22014-6, LIVR, 50112-3, 49025-4, 43-2, 0-3 #### [facility] ([id number]) [address] [place] [address] 98010 MCH (RBC) [Entitic mass] 34.0 pg Normal 27-34 [facility] Comment on above: Performed By: #### C BCA, BMP, 29906-8, LIVR, 43164-8, 00135-8, 5643-2, 0-3 #### [facility] ([id number]) [address] [place] [address] 44319 MCHC (RBC) [Mass/Vol] 34.7 g/dL Normal 32-36 [facility] Comment on above: Performed By: #### C BCA, BMP, 29649-9, LIVR, 15352-1, 18288-4, 5643-2, 3040-3 #### [facility] ([id number]) [address] [place] [address] 16392 MCV (RBC) [Entitic vol] 98 fL Normal 80-100 [facility] Comment on above: Performed By: #### C BCA, BMP, 66752-6, LIVR, 37685-2, 90034-6, 5643-2, 3040-3 #### [facility] ([id number]) [address] [place] [address] 30320 Monocytes (Bld) [#/Vol] 1.1 10*3/uL High 0-0.9 [facility] Comment on above: Performed By: #### C BCA, BMP, 75388-6, LIVR, 12295-5, 52426-8, 5643-2, 3040-3 #### [facility] ([id number]) [address] [place] [address] 52113 Monocytes/100 WBC (Bld) 9.6 % Normal [facility] Comment on above: Performed By: #### C BCA, BMP, 40366-1, LIVR, 12829-2, 51184-9, 5643-2, 3040-3 #### [facility] ([id number]) [address] [place] [address] 26134 Neutrophils/100 WBC (Bld) 64.2 % Normal [facility] Comment on above: Performed By: #### C BCA, BMP, 62689-9, LIVR, 71887-0, 87131-2, 5643-2, 3040-3 #### [facility] ([id number]) [address] [place] [address] 86172 Platelet mean volume (Bld) [Entitic vol] 7.8 fL Normal 7-12 [facility] Comment on above: Performed By: #### C BCA, BMP, 28687-8, LIVR, 78999-8, 74112-9, 5643-2, 3040-3 #### [facility] ([id number]) [address] [place] [address] 44372 Platelets (Bld) [#/Vol] 302 10*3/uL Normal 150-450 [facility] Comment on above: Performed By: #### C BCA, BMP, 10221-7, LIVR, 82119-6, 94441-9, 5643-2, 3040-3 #### [facility] ([id number]) [address] [place] [address] 07337 RBC COUNT 4.11 X10E12/L Normal 3.80-5.20 [facility] Comment on above: Performed By: #### C BCA, BMP, 46128-1, LIVR, 62450-6, 45992-5, 5643-2, 3040-3 #### [facility] ([id number]) [address] [place] [address] 69599 WBC (Bld) [#/Vol] 11.2 10*3/uL High 4.0-11.0 [facility] Comment on above: Performed By: #### C BCA, BMP, 88525-5, LIVR, 76211-0, 15298-6, 5643-2, 3040-3 #### [facility] ([id number]) [address] [place] [address] 70187 COMPREHENSIVE METABOLIC PANE Nimesh 05-31-2024 Albumin [Mass/Vol] 4.0 g/dL Normal 3.2-5.3 [facility] Comment on above: Performed By: #### C BCA, BMP, 56374-3, LIVR, 88727-8, 52325-0, 5643-2, 3040-3 #### [facility] ([id number]) [address] [place] [address] 78300 ALP [Catalytic activity/Vol] 97 U/L Normal 39-130 [facility] Comment on above: Performed By: #### C BCA, BMP, 38218-9, LIVR, 18468-5, 02094-1, 5643-2, 3040-3 #### [facility] ([id number]) [address] [place] [address] 78705 ALT [Catalytic activity/Vol] 12 U/L Normal 0-31 [facility] Comment on above: Performed By: #### C BCA, BMP, 83696-9, LIVR, 29750-9, 54685-2, 5643-2, 3040-3 #### [facility] ([id number]) [address] [place] [address] 36574 Anion gap [Moles/Vol] 7 mmol/L Normal 5-15 [facility] Comment on above: Performed By: #### C BCA, BMP, 94386-4, LIVR, 12355-8, 69516-8, 5643-2, 3040-3 #### [facility] ([id number]) [address] [place] [address] 47654 AST [Catalytic activity/Vol] 19 U/L Normal 0-41 [facility] Comment on above: Performed By: #### C BCA, BMP, 81697-3, LIVR, 07135-1, 28530-1, 5643-2, 3040-3 #### [facility] ([id number]) [address] [place] [address] 43503 Bilirubin [Mass/Vol] 0.4 mg/dL Normal 0.3-1.2 [facility] Comment on above: Performed By: #### C BCA, BMP, 79489-1, LIVR, 32669-1, 19285-9, 5643-2, 3040-3 #### [facility] ([id number]) [address] [place] [address] 74334 Calcium [Mass/Vol] 9.3 mg/dL Normal 8.5-10.5 [facility] Comment on above: Performed By: #### C BCA, BMP, 25685-5, LIVR, 97516-6, 49007-5, 5643-2, 3040-3 #### [facility] ([id number]) [address] [place] [address] 85180 Chloride [Moles/Vol] 106 mmol/L Normal 98-109 [facility] Comment on above: Performed By: #### C BCA, BMP, 21783-2, LIVR, 76123-9, 36562-2, 5643-2, 3040-3 #### [facility] ([id number]) [address] [place] [address] 50909 CO2 [Moles/Vol] 23 mmol/L Normal 22-32 [facility] Comment on above: Performed By: #### C BCA, BMP, 33029-5, LIVR, 23174-8, 99100-4, 5643-2, 3040-3 #### [facility] ([id number]) [address] [place] [address] 15455 Creatinine [Mass/Vol] 0.60 mg/dL Normal 0.40-1.00 [facility] Comment on above: Result Comment: METH OD TRACEABLE TO IDMS STANDARD Performed By: #### C BCA, BMP, 04609-2, LIVR, 28515-1, 91083-1, 5643-2, 3040-3 #### [facility] ([id number]) [address] [place] [address] 41381 eGFR (CKD-EPI) NON-RACE DEPENDENT >90 Normal >59 [facility] Comment on above: Result Comment: Reported eGFR is based on the CKD-EPI 2020 equation that does not use a race coefficient. Performed By: #### C BCA, BMP, 23208-1, LIVR, 07046-8, 88829-1, 5643-2, 3040-3 #### [facility] ([id number]) [address] [place] [address] 00875 Glucose [Mass/Vol] 101 mg/dL High 65-99 [facility] Comment on above: Performed By: #### C BCA, BMP, 54511-0, LIVR, 22587-8, 79662-7, 5643-2, 3040-3 #### [facility] ([id number]) [address] [place] [address] 19414 Potassium [Moles/Vol] 3.6 mmol/L Normal 3.5-5.0 [facility] Comment on above: Performed By: #### C BCA, BMP, 85384-6, LIVR, 47665-1, 39979-5, 5643-2, 3040-3 #### [facility] ([id number]) [address] [place] [address] 71780 Protein [Mass/Vol] 7.2 g/dL Normal 6.0-8.0 [facility] Comment on above: Performed By: #### C BCA, BMP, 45211-9, LIVR, 89996-4, 60565-8, 5643-2, 3040-3 #### [facility] ([id number]) [address] [place] [address] 90047 Sodium [Moles/Vol] 136 mmol/L Normal 134-146 [facility] Comment on above: Performed By: #### C BCA, BMP, 77716-0, LIVR, 71827-5, 41795-8, 5643-2, 3040-3 #### [facility] ([id number]) [address] [place] [address] 11352 Urea nitrogen [Mass/Vol] 11 mg/dL Normal 5-23 [facility] Comment on above: Performed By: #### C BCA, BMP, 92208-8, LIVR, 95240-2, 88587-1, 5643-2, 3040-3 #### [facility] ([id number]) [address] [place] [address] 47974 LIPASEon 05-31-2024 Lipase [Catalytic activity/Vol] 104 U/L High 17-40 [facility] Comment on above: Performed By: #### C BCA, BMP, 77442-6, LIVR, 83037-1, 92575-8, 5643-2, 3040-3 #### [facility] ([id number]) [address] [facility] [place] [address] Basic Metabolic Panelon 03-11 Anion gap [Moles/Vol] 8 mmol/L Low 9 - 16 mmol/L [facility] Calcium [Mass/Vol] 8.3 mg/dL Low 8.6 - 10. 4 mg/dL [facility] Chloride [Moles/Vol] 108 mmol/L High 98 - 10 7 mmol/L [facility] CO2 [Moles/Vol] 23 mmol/L 20 - 31 mmol/L [facility] Creatinine [Mass/Vol] 0.6 mg/dL 0.50 - 0.90 mg/dL [facility] Est, Glomarina Reyest Rate - PINF [facility] Comment on above: These results are not [...] [Mass/Vol] 83 mg/dL 74 - 99 mg/dL [facility] Potassium [Moles/Vol] 4.0 mmol/L 3.7 - 5.3 mmol/L [facility] Sodium [Moles/Vol] 139 mmol/L 136 - 145 mmol/L [facility] Urea nitrogen [Mass/Vol] 10 mg/dL 6 - 20 mg/dL [facility] Urea nitrogen/Creatinine [Mass ratio] 17 mg/mg 9 - 20 [facility] Basic Metabolic Profon 04-07 Anion gap [Moles/Vol] 8 mmol/L Low 9-16 [facility] Comment on above: Performed By: #### C DP, REBECA, HARITHA #### [facility] [address] [place], [place] [id number] Entry Level Recruiter: Ion Jasso MD BUN/CRE Ratio 17 Normal -20 [facility] Comment on above: Performed By: #### C DP, LIP, CP #### [facility] [address] [place], [place] [id number] Entry Level Recruiter: Ion Jasso MD Calcium [Mass/Vol] 8.3 mg/dL Low 8.6-10.4 [facility] Comment on above: Performed By: #### C DP, LIP, CP #### [facility] [address] [place] [address] Entry Level Recruiter: Ion Jasso MD Chloride [Moles/Vol] 108 mmol/L High 98-107 [facility] Comment on above: Performed By: #### C DP LIP, CP #### [facility] [address] [place], [place] [id number] Entry Level Recruiter: Ion Jasso MD CO2 [Moles/Vol] 23 mmol/L Normal 20-31 [facility] Comment on above: Performed By: #### C DP LIP, CP #### [facility] [address] [place], [place] [id number] Entry Level Recruiter: Ion Jasso MD Creatinine [Mass/Vol] 0.6 mg/dL Normal 0.50-0.90 [facility] Comment on above: Performed By: #### C DP LIP, CP #### [facility] [address] [place], [facility] Entry Level Recruiter: Ion Jasso MD GFR/1.73 sq M.predicted among non-blacks MDRD (S/P/Bld) [Vol rate/Area] mL/min/{1.73_m2} Normal >60 [facility] Comment on above: Result Comment: These [...] renal tubular secretion. Performed By: #### C DP LIP, CP #### [facility] [address] [place], [place] [id number] Entry Level Recruiter: Ion Jasso MD Glucose [Mass/Vol] 83 mg/dL Normal 74-99 [facility] Comment on above: Performed By: #### C DP LIP, CP #### [facility] [address] [place] [address] Entry Level Recruiter: Ion Jasso MD Potassium [Moles/Vol] 4.0 mmol/L Normal 3.7-5.3 [facility] Comment on above: Performed By: #### C ELMER LIP, CP #### [facility] [address] [place], [place] [id number] Entry Level Recruiter: Ion Jasso MD Sodium [Moles/Vol] 139 mmol/L Normal 136-145 [facility] Comment on above: Performed By: #### C ELMER LIP, CP #### [address] [place], [place] [id number] Entry Level Recruiter: Ion Jasso MD Urea nitrogen [Mass/Vol] 10 mg/dL Normal 6-20 [facility] Comment on above: Performed By: #### C ELMER LIP, CP #### [facility] [address] [place], [facility]83 Entry Level Recruiter: Ion Jasso MD CBC with Auto Differentialon 04-07-2024 Basophils (Bld) [#/Vol] 0.08 10*3/uL [facility] Basophils/100 WBC (Bld) 1 % 0 - 2 % [facility] Eosinophils (Bld) [#/Vol] 0.13 10*3/uL [facility] Eosinophils/100 WBC (Bld) 1 % 1 - 4 % [facility] Erythrocyte distribution width (RBC) [Ratio] 13.1 % 11.8 - 14.4 % [facility] Hematocrit (Bld) [Volume fraction] 40.1 % 36.3 - 47.1 % [facility] Hemoglobin (Bld) [Mass/Vol] 14.0 g/dL 11.9 - 15.1 g/dL [facility] Immature granulocytes (Bld) [#/Vol] 0.03 10*3/uL [facility] Immature granulocytes/100 WBC (Bld) 0 % 0 [facility] Interpretation and review of laboratory results Abnormal [facility] Lymphocytes/100 WBC (Bld) 26 % 24 - 43 % [facility] Lymphocytes/100 WBC (Bld) 2.39 % [facility] MCH (RBC) [Entitic mass] 33.9 pg High 25.2 - 33.5 pg [facility] MCHC (RBC) [Mass/Vol] 34.9 g/dL High 28.4 - 34.8 g/dL [facility] MCV (RBC) [Entitic vol] 97.1 fL 82.6 - 102.9 fL [facility] Monocytes/100 WBC (Bld) 8 % 3 - 12 % [facility] Monocytes/100 WBC (Bld) 0.76 % [facility] Neutrophils/100 WBC (Bld) 64 % 36 - 65 % [facility] Nucleated RBC/100 WBC (Bld) [Ratio] 0.0 % 0.0 per 100 WBC [facility] Platelet mean volume (Bld) [Entitic vol] 10.6 fL 8.1 - 13.5 fL [facility] Platelets (Bld) [#/Vol] 267 10*3/uL [facility] RBC (Bld) [#/Vol] 4.13 10*6/uL 3.95 - 5.11 m/uL [facility] Segmented neutrophils/100 WBC (Bld) 5.87 % [facility] WBC other (Bld) [#/Vol] 9.3 [facility] CBC with Diffon 04-07-2024 Abs. Basophil 0.08 k/uL Normal 0.00-0.20 [facility] Comment on above: Performed By: #### R EJEC, CDP #### [address] [place], [place] [address] Entry Level Recruiter: Ion Jasso MD Abs.Imm.Granulocyte 0.03 k/uL Normal 0.00-0.30 [facility] Comment on above: Performed By: #### R EJEC, CDP #### [address] [place] [address] Entry Level Recruiter: Ion Jasso MD Abs.Neutrophil (Seg) 5.87 k/uL Normal 1.50-8.10 [facility] Comment on above: Performed By: #### R ANGELINE, CDP #### [address] [place] [address] Entry Level Recruiter: Ion Jasso MD Basophils/100 WBC (Bld) 1 % Normal 0-2 [facility] Comment on above: Performed By: #### R ANGELINE, CDP #### [address] [place], [place] [address] Entry Level Recruiter: Ion Jasso MD Eosinophils (Bld) [#/Vol] 0.13 10*3/uL Normal 0.00-0.44 [facility] Comment on above: Performed By: #### R ANGELINE, CDP #### [address] [place] [address] Entry Level Recruiter: Ion Jasso MD Eosinophils/100 WBC (Bld) 1 % Normal 1-4 [facility] Comment on above: Performed By: #### R EJEC, CDP #### [address] [place] [address] Entry Level Recruiter: Ion Jasso MD Erythrocyte distribution width (RBC) [Ratio] 13.1 % Normal 11.8-14.4 [facility] Comment on above: Performed By: #### R NAYELYEC, CDP #### [address] [place], [facility]83 Entry Level Recruiter: Ion Jasso MD Hematocrit (Bld) [Volume fraction] 40.1 % Normal 36.3-47.1 [facility] Comment on above: Performed By: #### R EJJOSHUA, CDP #### [facility] [address] [place] [address] Dr. [place], [facility]83 Entry Level Recruiter: Ion Jasso MD Hemoglobin (Bld) [Mass/Vol] 14.0 g/dL Normal 11.9-15.1 [facility] Comment on above: Performed By: #### R ANGELINE, CDP #### [address] [place], [facility]83 Entry Level Recruiter: Ion Jasso MD Immature granulocytes/100 WBC (Bld) 0 % Normal 0 [facility] Comment on above: Performed By: #### R ANGELINE, CDP #### [address] [place], [facility]83 Entry Level Recruiter: Ion Jasso MD Lymphocytes (Bld) [#/Vol] 2.39 10*3/uL Normal 1.10-3.70 [facility] Comment on above: Performed By: #### R ANGELINE, CDP #### [address] [place], [facility]83 Entry Level Recruiter: Ion Jasso MD Lymphocytes/100 WBC (Bld) 26 % Normal 24-43 [facility] Comment on above: Performed By: #### R ANGELINE, CDP #### [facility] [address] [place] [address] Dr. [place], [facility]83 Entry Level Recruiter: Ion Jasso MD MCH (RBC) [Entitic mass] 33.9 pg High 25.2-33.5 [facility] Comment on above: Performed By: #### R ANGELINE, CDP #### [address] [place], [facility]83 Entry Level Recruiter: Ion Jasso MD MCHC (RBC) [Mass/Vol] 34.9 g/dL High 28.4-34.8 [facility] Comment on above: Performed By: #### R ANGELINE, CDP #### [address] [place], [place] 3553983 Entry Level Recruiter: Ion Jasso MD MCV (RBC) [Entitic vol] 97.1 fL Normal 82.6-102.9 [facility] Comment on above: Performed By: #### R ANGELINE, CDP #### [address] [place] [address] Entry Level Recruiter: Ion Jasso MD Monocytes (Bld) [#/Vol] 0.76 10*3/uL Normal 0.10-1.20 [facility] Comment on above: Performed By: #### Dustin MARCUS, CDP #### [address] [place], [facility]83 Entry Level Recruiter: Ion Jasso MD Monocytes/100 WBC (Bld) 8 % Normal 3-12 [facility] Comment on above: Performed By: #### R ANGELINE, CDP #### [address] [place] [address] Entry Level Recruiter: Ion Jasso MD Neutrophil (Seg) 64 % Normal 36-65 [facility] Comment on above: Performed By: #### R ANGELINE, CDP #### [address] [place] [address] Entry Level Recruiter: Ion Jasso MD NRBC Automated 0.0 per 100 WBC Normal 0.0 [facility] Comment on above: Performed By: #### R ANGELINE, CDP #### [address] [place], [place] 1365683 Entry Level Recruiter: Ion Jasso MD Platelet mean volume (Bld) [Entitic vol] 10.6 fL Normal 8.1-13.5 [facility] Comment on above: Performed By: #### R ANGELINE, CDP #### [facility] [address] [place], [place] 8643083 Entry Level Recruiter: Ion Jasso MD Platelets (Bld) [#/Vol] 267 10*3/uL Normal 138-453 [facility] Comment on above: Performed By: #### R ANGELINE, CDP #### [facility] [address] [place] [address] Entry Level Recruiter: Ion Jasso MD RBC (Bld) [#/Vol] 4.13 10*6/uL Normal 3.95-5.11 [facility] Comment on above: Performed By: #### Dustin MARCUS, CDP #### [facility] [address] [place] [address] Entry Level Recruiter: Ion Jasso MD WBC (Bld) [#/Vol] 9.3 10*3/uL Normal 3.5-11.3 [facility] Comment on above: Performed By: #### Dustin MARCUS, CDP #### [address] [place] [address] Entry Level Recruiter: Ion Jasso MD CT ABDOMEN PELVIS W [...] Errol Tran MD 04/07/24 Final result Normal [facility] CT Abdomen and Pelvis W cont rast Roxana 04-07-2024 1. No acute intra-abdominal or pelvic abnormalities are noted. 2. Stable mild dilatation of the extrahepatic biliary tree and pancreatic duct. 3. Status post cholecystectomy. [facility] CONSOLIDATED EXAMINATION: CT OF THE ABDOMEN AND [...] lytic or blastic osseous lesions are identified. [facility] CONSOLIDATED Errol Tran MD - 04/07/2024 [...] and pancreatic duct. 3. Status post cholecystectomy. [facility] Study observation (narrative) [facility] CT Abdomen and Pelvis W cont rast IVOrdered By: Errol Tran on 04-07-2024 [facility] Work Phone: Hepatic Function Panelon Albumin [Mass/Vol] 3.9 g/dL 3.5 - 5.2 g/dL [facility] Album[facility]/Globulin [Mass ratio] 1.7 {ratio} 1.0 - 2.5 [facility] ALP [Catalytic activity/Vol] 119 U/L High 35 - 104 U/L [facility] ALT [Catalytic activity/Vol] 11 U/L 10 - 35 U/L [facility] AST [Catalytic activity/Vol] 30 U/L 10 - 35 U/L [facility] Bilirubin [Mass/Vol] mg/dL 0.00 - 1.20 mg/dL [facility] Bilirubin.direct [Mass/Vol] mg/dL 0.00 - 0.30 mg/dL [facility] Bilirubin.indirect [Mass/Vol] Can not be calculated 0.0 - 1.0 mg/dL [facility] Protein [Mass/Vol] 6.1 g/dL Low 6.6 - 8.7 g/dL [facility] Lipaseon 04-07-2024 Lipase [Catalytic activity/Vol] 266 U/L High 13 - 60 U/L [facility] Lipase [Catalytic activity/Vol] 266 U/L High 13-60 [facility] Comment on above: Performed By: #### C DP LIP, CP #### [facility] [address] [place] [address] [place] [address] Entry Level Recruiter: Ion Jasso MD Liver Profileon 04-07-2024 Albumin [Mass/Vol] 3.9 g/dL Normal 3.5-5.2 [facility] Comment on above: Performed By: #### C DP LIP, CP #### [facility] [address] [place] [address] Dr. [place], [place] [phone] Entry Level Recruiter: Ion Jasso MD Albumin/Glob Ratio 1.7 Normal 1.0-2.5 [facility] Comment on above: Performed By: #### C DP, LIP, CP #### [facility] [address] [place], [place] [id number] Entry Level Recruiter: Ion Jasso MD Alkaline Phos 119 U/L High 35-104 [facility] Comment on above: Performed By: #### C DP, LIP, CP #### [facility] [address] [place] [address] Entry Level Recruiter: Ion Jasso MD ALT [Catalytic activity/Vol] 11 U/L Normal -35 [facility] Comment on above: Performed By: #### C DP LIP, CP #### [facility] [address] [place], [place] [phone] Entry Level Recruiter: Ion Jasso MD AST [Catalytic activity/Vol] 30 U/L Normal -35 [facility] Comment on above: Performed By: #### C DP, LIP, CP #### [facility] [address] [place] [address] Entry Level Recruiter: Ion Jasso MD Bilirubin [Mass/Vol] mg/dL Normal 0.00-1.20 [facility] Comment on above: Performed By: #### C DP LIP, CP #### [address] [place], [place] 6809983 Entry Level Recruiter: Ion Jasso MD Bilirubin, Indirect Can not be calculated Normal 0.0-1 .0 [facility] Comment on above: Performed By: #### C DP LIP, CP #### [address] [place], [place] [phone] Entry Level Recruiter: Ion Jasso MD Bilirubin.indirect [Mass/Vol] mg/dL Normal 0.00-0.30 [facility] Comment on above: Performed By: #### C DP LIP, CP #### [facility] [address] [place] [address] Dr. [place], [place] 1278883 Entry Level Recruiter: Ion Jasso MD Protein [Mass/Vol] 6.1 g/dL Low 6.6-8.7 [facility] Comment on above: Performed By: #### C DP LIP, CP #### [address] [place], [place] [phone] Entry Level Recruiter: Ion Jasso MD No Panel Informationon 04-07 Interpretation and review of laboratory results Abnormal [facility] Specimen Rejectionon 025 Reason for rejection Unable to perform testing: Specimen hemolyzed. Normal [facility] Comment on above: Performed By: #### R ANGELINE, CDP #### [facility] [address] [place] [address] Entry Level Recruiter: Ion Jasso MD Source of sample .BLOOD [facility] Comment on above: Performed By: #### R ANGELINE, CDP #### [facility] [address] [place] [address] Entry Level Recruiter: Ion Jasso MD Test ordered LIP,LIVP, BMP [facility] Comment on above: Performed By: #### R ANGELINE, CDP #### [facility] [address] [place] [address] Entry Level Recruiter: Ion Jasso MD Urinalysison 04-07-2024 Bilirubin Ql (U) Negative NEGATIVE [facility] Clarity (U) Clear Clear [facility] Color (U) Yellow Yellow [facility] Glucose Test strip (U) [Mass/Vol] Negative NEGATIVE mg/dL [facility] Hemoglobin Auto test strip Ql (U) Negative NEGATIVE [facility] Ketones (U) [Mass/Vol] Negative NEGAT MATTHIAS mg/dL [facility] Leukocyte esterase Test strip Ql (U) Negative NEGATIVE [facility] Nitrite Ql (U) Negative NEGATIVE [facility] pH (U) 5.5 [pH] 5.0 - 9.0 [facility] Protein (U) [Mass/Vol] Negative NEGAT MATTHIAS mg/dL [facility] Specific gravity (U) [Rel density] 1.010 1.010 - 1.020 [facility] Urobilinogen Qn (U) Normal 0.0 - 1. 0 EU/dL [facility] Urinalysis, Routineon 2024 Bilirubin, SemiQt,Ur Negative Normal NEG [facility] Comment on above: Performed By: #### U A #### [facility] [address] [place], [place] 6092483 Entry Level Recruiter: Ion Jasso MD Blood, Urine Negative Normal NEG [facility] Comment on above: Performed By: #### U A #### [facility] [address] [place], [place] [phone] Entry Level Recruiter: Ion Jasso MD Clarity (U) Clear Normal CLEAR [facility] Comment on above: Performed By: #### U A #### [facility] [address] [place] [address] Dr. [place], [place] [phone] Entry Level Recruiter: Ion Jasso MD Color (U) Yellow Normal YEL [facility] Comment on above: Performed By: #### U A #### [facility] [address] [place] [address] Dr. [place], [place] [phone] Entry Level Recruiter: Ion Jasso MD Glucose Ql (U) Negative Normal NEG [facility] Comment on above: Performed By: #### U A #### [facility] [address] [place] [address] Dr. [place], [place] [phone] Entry Level Recruiter: Ion Jasso MD Ketones Ql (U) Negative Normal NEG [facility] Comment on above: Performed By: #### U A #### [facility] [address] [place] [address] Dr. [place], [place] [phone] Entry Level Recruiter: Ion Jasso MD Leukocyte esterase Test strip Ql (U) Negative Normal NEG [facility] Comment on above: Performed By: #### U A #### [facility] [address] [place] [address] Dr. [place], [place] [phone] Entry Level Recruiter: Ion Jasso MD Nitrite,Ur Negative Normal NEG [facility] Comment on above: Performed By: #### U A #### [facility] [address] [place] [address] Dr. [place], [place] 4978783 Entry Level Recruiter: Ion Jasso MD PH,Ur 5.5 Normal 5.0-9.0 [facility] Comment on above: Performed By: #### U A #### [facility] [address] [place], [place] 1430983 Entry Level Recruiter: Ion Jasso MD Protein Ql (U) Negative Normal NEG [facility] Comment on above: Performed By: #### U A #### [facility] [address] [place], [place] 5887383 Entry Level Recruiter: Ion Jasso MD Spec. [place],Ur 1.010 Normal 1.010-1.02 0 [facility] Comment on above: Performed By: #### U A #### [facility] [address] [place], [place] 6103083 Entry Level Recruiter: Ion Jasso MD Urobilinogen,Ur Normal Normal 0.0-1.0 [facility] Comment on above: Performed By: #### U A #### [facility] [address] [place], [place] 2955583 Entry Level Recruiter: Ion Jasso MD CBC AND AUTO DIFFon 03-18-19 25 ABSOLUTE BASOPHIL 0.1 X10E9/L Normal 0.0-0.2 [facility] Comment on above: Performed By: #### C BCA, BMP, 60691-5, LIVR, 86119-0, 64577-9, 5643-2, 3040-3 #### [facility] ([id number]) [address] [place] [address] ABSOLUTE NEUTROPHIL 7.7 X10E9/L High 1.5-6.6 [facility] Comment on above: Performed By: #### C BCA, BMP, 53948-0, LIVR, 57307-4, 51597-9, 5643-2, 3040-3 #### [facility] ([id number]) [address] [place] [address]9078 Basophils/100 WBC (Bld) 0.8 % Normal [facility] Comment on above: Performed By: #### C BCA, BMP, 35115-5, LIVR, 24343-4, 79972-1, 5643-2, 3040-3 #### [facility] ([id number]) [address] [place] [address] 36[address] Eosinophils (Bld) [#/Vol] 0.1 10*3/uL Normal 0.0-0.4 [facility] Comment on above: Performed By: #### C BCA, BMP, 98733-0, LIVR, 74016-6, 49513-4, 5643-2, 3040-3 #### [facility] ([id number]) [address] [place] [address] 69991 Eosinophils/100 WBC (Bld) 0.5 % Normal [facility] Comment on above: Performed By: #### C BCA, BMP, 79209-7, LIVR, 28269-5, 95940-9, 5643-2, 3040-3 #### [facility] ([id number]) [address] [place] [address]76 Erythrocyte distribution width (RBC) [Ratio] 13.5 % Normal 11.5-15.0 [facility] Comment on above: Performed By: #### C BCA, BMP, 44534-8, LIVR, 77187-4, 85945-5, 5643-2, 3040-3 #### [facility] ([id number]) [address] [place] [address] 98546 Hematocrit (Bld) [Volume fraction] 48.7 % High 35-47 [facility] Comment on above: Performed By: #### C BCA, BMP, 71822-3, LIVR, 74349-5, 08588-5, 5643-2, 3040-3 #### [facility] ([id number]) [address] [place] [address] Hemoglobin (Bld) [Mass/Vol] 16.5 g/dL High 11.7-15.5 [facility] Comment on above: Performed By: #### C BCA, BMP, 81391-1, LIVR, 42859-0, 72198-2, 5643-2, 3040-3 #### [facility] ([id number]) [address] [place] [address] 38968 Lymphocytes (Bld) [#/Vol] 2.0 10*3/uL Normal 1.0-3.5 [facility] Comment on above: Performed By: #### C BCA, BMP, 73211-9, LIVR, 50731-8, 64393-9, 5643-2, 3040-3 #### [facility] ([id number]) [address] [place] [address]1973 Lymphocytes/100 WBC (Bld) 19.0 % Normal [facility] Comment on above: Performed By: #### C BCA, BMP, 71007-0, LIVR, 29141-9, 34717-1, 5643-2, 3040-3 #### [facility] ([id number]) [address] [place] [address] 48798 MCH (RBC) [Entitic mass] 33.5 pg Normal 27-34 [facility] Comment on above: Performed By: #### C BCA, BMP, 52708-2, LIVR, 49056-1, 92692-2, 5643-2, 3040-3 #### [facility] ([id number]) [address] [place] [address] 33637 MCHC (RBC) [Mass/Vol] 33.9 g/dL Normal 32-36 [facility] Comment on above: Performed By: #### C BCA, BMP, 63210-9, LIVR, 72935-7, 67336-4, 5643-2, 3040-3 #### [facility] ([id number]) [address] [place] [address] 26840 MCV (RBC) [Entitic vol] 99 fL Normal 80-100 [facility] Comment on above: Performed By: #### C BCA, BMP, 72708-2, LIVR, 60370-2, 70787-9, 5643-2, 3040-3 #### [facility] ([id number]) [address] [place] [address] 86803 Monocytes (Bld) [#/Vol] 0.8 10*3/uL Normal 0-0.9 [facility] Comment on above: Performed By: #### C BCA, BMP, 50997-6, LIVR, 42715-0, 41025-2, 5643-2, 3040-3 #### [facility] ([id number]) [address] [place] [address] 15881 Monocytes/100 WBC (Bld) 7.4 % Normal [facility] Comment on above: Performed By: #### C BCA, BMP, 35165-6, LIVR, 65525-6, 14696-8, 5643-2, 3040-3 #### [facility] ([id number]) [address] [place] [address] 46775 Neutrophils/100 WBC (Bld) 72.3 % Normal [facility] Comment on above: Performed By: #### C BCA, BMP, 12003-0, LIVR, 69621-9, 39031-9, 5643-2, 3040-3 #### [facility] ([id number]) [address] [place] [address] 19366 Platelet mean volume (Bld) [Entitic vol] 8.1 fL Normal 7-12 [facility] Comment on above: Performed By: #### C BCA, BMP, 29985-9, LIVR, 68873-0, 07378-6, 5643-2, 3040-3 #### [facility] ([id number]) [address] [place] [address] 97456 Platelets (Bld) [#/Vol] 304 10*3/uL Normal 150-450 [facility] Comment on above: Performed By: #### C BCA, BMP, 69373-2, LIVR, 59957-8, 60603-9, 5643-2, 3040-3 #### [facility] ([id number]) [address] [place] [address] 97980 RBC COUNT 4.92 X10E12/L Normal 3.80-5.20 [facility] Comment on above: Performed By: #### C BCA, BMP, 34589-9, LIVR, 17186-2, 78106-8, 5643-2, 3040-3 #### [facility] ([id number]) [address] [place] [address] 52031 WBC (Bld) [#/Vol] 10.7 10*3/uL Normal 4.0-11.0 [facility] Comment on above: Performed By: #### C BCA, BMP, 43912-2, LIVR, 29715-6, 44583-1, 5643-2, 3040-3 #### [facility] ([id number]) [address] [place] [address] 82147 COMPREHENSIVE METABOLIC PANE Nimesh 03-18-2024 Albumin [Mass/Vol] 4.7 g/dL Normal 3.2-5.3 [facility] Comment on above: Performed By: #### C BCA, BMP, 86325-9, LIVR, 49477-3, 58168-7, 5643-2, 3040-3 #### [facility] ([id number]) [address] [place] [address] 08045 ALP [Catalytic activity/Vol] 153 U/L High 39-130 [facility] Comment on above: Performed By: #### C BCA, BMP, 46052-8, LIVR, 44730-8, 32400-7, 5643-2, 3040-3 #### [facility] ([id number]) [address] [place] [address] 95115 ALT [Catalytic activity/Vol] 18 U/L Normal 0-31 [facility] Comment on above: Performed By: #### C BCA, BMP, 97305-2, LIVR, 78696-0, 73193-7, 5643-2, 3040-3 #### [facility] ([id number]) [address] [place] [address] 14039 Anion gap [Moles/Vol] 9 mmol/L Normal 5-15 [facility] Comment on above: Performed By: #### C BCA, BMP, 96929-7, LIVR, 42277-9, 07685-5, 5643-2, 3040-3 #### [facility] ([id number]) [address] [place] [address] 15577 AST [Catalytic activity/Vol] 26 U/L Normal 0-41 [facility] Comment on above: Performed By: #### C BCA, BMP, 89465-2, LIVR, 56290-0, 72894-3, 5643-2, 3040-3 #### [facility] ([id number]) [address] [place] [address] 46045 Bilirubin [Mass/Vol] 0.8 mg/dL Normal 0.3-1.2 [facility] Comment on above: Performed By: #### C BCA, BMP, 30000-2, LIVR, 45072-5, 63263-5, 5643-2, 3040-3 #### [facility] ([id number]) [address] [place] [address] 55710 Calcium [Mass/Vol] 10.9 mg/dL High 8.5-10.5 [facility] Comment on above: Performed By: #### C BCA, BMP, 71905-3, LIVR, 91623-7, 50623-7, 5643-2, 3040-3 #### [facility] ([id number]) [address] [place] [address] 78802 Chloride [Moles/Vol] 104 mmol/L Normal 98-109 [facility] Comment on above: Performed By: #### C BCA, BMP, 59450-4, LIVR, 58078-7, 33702-1, 5643-2, 3040-3 #### [facility] ([id number]) [address] [place] [address] 09931 CO2 [Moles/Vol] 27 mmol/L Normal 22-32 [facility] Comment on above: Performed By: #### C BCA, BMP, 71554-4, LIVR, 56087-5, 63673-9, 5643-2, 3040-3 #### [facility] ([id number]) [address] [place] [address] 27232 Creatinine [Mass/Vol] 0.78 mg/dL Normal 0.40-1.00 [facility] Comment on above: Result Comment: METH OD TRACEABLE TO IDMS STANDARD Performed By: #### C BCA, BMP, 59664-2, LIVR, 41010-3, 47772-5, 5643-2, 3040-3 #### [facility] ([id number]) [address] [place] [address] [place] [address] eGFR (CKD-EPI) NON-RACE DEPENDENT >90 Normal >59 [facility] Comment on above: Result Comment: Reported eGFR is based on the CKD-EPI 2020 equation that does not use a race coefficient. Performed By: #### C BCA, BMP, 10825-9, LIVR, 54726-1, 76856-5, 5643-2, 3040-3 #### [facility] ([id number]) [address] [place] [address] 29593 Glucose [Mass/Vol] 103 mg/dL High 65-99 [facility] Comment on above: Performed By: #### C BCA, BMP, 77392-0, LIVR, 07936-8, 77957-1, 5643-2, 3040-3 #### [facility] ([id number]) [address] [place] [address] 25314 Potassium [Moles/Vol] 4.5 mmol/L Normal 3.5-5.0 [facility] Comment on above: Performed By: #### C BCA, BMP, 68691-7, LIVR, 34474-2, 27314-9, 5643-2, 3040-3 #### [facility] ([id number]) [address] [place] [address] 43214 Protein [Mass/Vol] 8.2 g/dL High 6.0-8.0 [facility] Comment on above: Performed By: #### C BCA, BMP, 87230-4, LIVR, 37038-9, 01268-0, 5643-2, 3040-3 #### [facility] ([id number]) [address] [place] [address] 65846 Sodium [Moles/Vol] 140 mmol/L Normal 134-146 [facility] Comment on above: Performed By: #### C BCA, BMP, 74773-4, LIVR, 89607-1, 45308-7, 5643-2, 3040-3 #### [facility] ([id number]) [address] [place] [address] 34294 Urea nitrogen [Mass/Vol] 11 mg/dL Normal 5-23 [facility] Comment on above: Performed By: #### C BCA, BMP, 34781-5, LIVR, 60499-0, 78021-7, 5643-2, 3040-3 #### [facility] ([id number]) [address] [place] [address] ABDOMEN AND PELVIS W CONT on [...] Cano MD on 03/18/2024 3:38 PM Normal [facility] LIPASEon 03-18-2024 Lipase [Catalytic activity/Vol] 73 U/L High 17-40 [facility] Comment on above: Performed By: #### C BCA, BMP, 40078-0, LIVR, 08625-3, 18477-4, 5643-2, 3040-3 #### [facility] ([id number]) [address] [place] [address], [place] [address] UPPER EUSon 01-19-2024 [facility] Gastroenterology Patient Name: Chioma Rainey Procedure Date: 01/19/2024 9:15 AM Date of : 1970 Admit Type: Outpatient Age: 53 Room: EUS Proc Room 01 Gender: Female Note Status: Finalized Attending MD: Sabrina Dee MD, MPH, [id number] Procedure: Upper EUS Indications: Celiac plexus block for pain secondary to chronic pancreatitis Providers: Sabrina Dee MD, MPH (Doctor), Daniel Christiansen MD (Fellow), Love Zeng, RN (Nurse), Lotus Rudd RN (Nurse), LOW [...] o (more content not included)... LAB, [facility] Radiology Study observation (narrative) [facility] CBC AND AUTO DIFFon 01-14-20 24 ABSOLUTE BASOPHIL 0.1 X10E9/L Normal 0.0-0.2 [facility] Comment on above: Performed By: #### C BCA, BMP, 62149-6, LIVR, 68090-9, 78277-3, 5643-2, 3040-3 #### [facility] ([id number]) [address] [place] [address] 00475 ABSOLUTE NEUTROPHIL 6.8 X10E9/L High 1.5-6.6 [facility] Comment on above: Performed By: #### C BCA, BMP, 83488-5, LIVR, 12231-5, 69046-7, 5643-2, 3040-3 #### [facility] ([id number]) [address] [place] [address] 52630 Basophils/100 WBC (Bld) 0.8 % Normal [facility] Comment on above: Performed By: #### C BCA, BMP, 95910-8, LIVR, 61214-9, 81952-0, 5643-2, 3040-3 #### [facility] ([id number]) [address] [place] [address] 91092 Eosinophils (Bld) [#/Vol] 0.1 10*3/uL Normal 0.0-0.4 [facility] Comment on above: Performed By: #### C BCA, BMP, 99144-0, LIVR, 75983-2, 30645-2, 5643-2, 3040-3 #### [facility] ([id number]) [address] [place] [address] 35168 Eosinophils/100 WBC (Bld) 1.2 % Normal [facility] Comment on above: Performed By: #### C BCA, BMP, 18374-4, LIVR, 27493-5, 51462-5, 5643-2, 3040-3 #### [facility] ([id number]) [address] [place] [address] 74341 Erythrocyte distribution width (RBC) [Ratio] 12.9 % Normal 11.5-15.0 [facility] Comment on above: Performed By: #### C BCA, BMP, 52946-8, LIVR, 60862-2, 72407-3, 5643-2, 3040-3 #### [facility] ([id number]) [address] [place] [address] 86913 Hematocrit (Bld) [Volume fraction] 42.2 % Normal 35-47 [facility] Comment on above: Performed By: #### C BCA, BMP, 21728-8, LIVR, 89840-3, 31629-6, 5643-2, 3040-3 #### [facility] ([id number]) [address] [place] [address] 36452 Hemoglobin (Bld) [Mass/Vol] 14.5 g/dL Normal 11.7-15.5 [facility] Comment on above: Performed By: #### C BCA, BMP, 92231-0, LIVR, 69771-9, 81225-8, 5643-2, 3040-3 #### [facility] ([id number]) [address] [place] [address] 18723 Lymphocytes (Bld) [#/Vol] 2.8 10*3/uL Normal 1.0-3.5 [facility] Comment on above: Performed By: #### C BCA, BMP, 69914-9, LIVR, 42879-9, 83672-2, 5643-2, 3040-3 #### [facility] ([id number]) [address] [place] [address] 09436 Lymphocytes/100 WBC (Bld) 26.2 % Normal [facility] Comment on above: Performed By: #### C BCA, BMP, 45783-0, LIVR, 31827-2, 69160-8, 5643-2, 3040-3 #### [facility] ([id number]) [address] [place] [address] 61581 MCH (RBC) [Entitic mass] 33.8 pg Normal 27-34 [facility] Comment on above: Performed By: #### C BCA, BMP, 65498-8, LIVR, 56076-4, 44914-6, 5643-2, 3040-3 #### [facility] ([id number]) [address] [place] [address] 87257 MCHC (RBC) [Mass/Vol] 34.3 g/dL Normal 32-36 [facility] Comment on above: Performed By: #### C BCA, BMP, 11555-8, LIVR, 70917-7, 49381-0, 5643-2, 3040-3 #### [facility] ([id number]) [address] [place] [address] 60729 MCV (RBC) [Entitic vol] 98 fL Normal 80-100 [facility] Comment on above: Performed By: #### C BCA, BMP, 74723-0, LIVR, 76960-5, 64925-9, 5643-2, 3040-3 #### [facility] ([id number]) [address] [place] [address] 23710 Monocytes (Bld) [#/Vol] 0.9 10*3/uL Normal 0-0.9 [facility] Comment on above: Performed By: #### C BCA, BMP, 96612-0, LIVR, 46970-3, 06021-2, 5643-2, 3040-3 #### [facility] ([id number]) [address] [place] [address] 82678 Monocytes/100 WBC (Bld) 8.2 % Normal [facility] Comment on above: Performed By: #### C BCA, BMP, 54206-9, LIVR, 99323-3, 50038-5, 5643-2, 3040-3 #### [facility] ([id number]) [address] [place] [address] 65581 Neutrophils/100 WBC (Bld) 63.6 % Normal [facility] Comment on above: Performed By: #### C BCA, BMP, 89316-8, LIVR, 00510-2, 64479-7, 5643-2, 3040-3 #### [facility] ([id number]) [address] [place] [address] 35591 Platelet mean volume (Bld) [Entitic vol] 8.2 fL Normal 7-12 [facility] Comment on above: Performed By: #### C BCA, BMP, 15687-7, LIVR, 36845-3, 74051-9, 5643-2, 3040-3 #### [facility] ([id number]) [address] [place] [address] 54681 Platelets (Bld) [#/Vol] 259 10*3/uL Normal 150-450 [facility] Comment on above: Performed By: #### C BCA, BMP, 36884-7, LIVR, 42099-2, 36721-2, 5643-2, 3040-3 #### [facility] ([id number]) [address] [place] [address] 66849 RBC COUNT 4.29 X10E12/L Normal 3.80-5.20 [facility] Comment on above: Performed By: #### C BCA, BMP, 29082-5, LIVR, 32231-3, 65864-9, 5643-2, 3040-3 #### [facility] ([id number]) [address] [place] [address] 29042 WBC (Bld) [#/Vol] 10.7 10*3/uL Normal 4.0-11.0 [facility] Comment on above: Performed By: #### C BCA, BMP, 21444-8, LIVR, 69474-8, 66285-1, 5643-2, 3040-3 #### [facility] ([id number]) [address] [place] [address] 25514 COMPREHENSIVE METABOLIC PANE Nimesh 01-14-2024 Albumin [Mass/Vol] 4.2 g/dL Normal 3.2-5.3 [facility] Comment on above: Performed By: #### C BCA, BMP, 82772-8, LIVR, 27904-1, 05850-0, 5643-2, 3040-3 #### [facility] ([id number]) [address] [place] [address] 80496 ALP [Catalytic activity/Vol] 136 U/L High 39-130 [facility] Comment on above: Performed By: #### C BCA, BMP, 44897-1, LIVR, 00429-2, 53290-3, 5643-2, 3040-3 #### [facility] ([id number]) [address] [place] [address] 36553 ALT [Catalytic activity/Vol] 18 U/L Normal 0-31 [facility] Comment on above: Performed By: #### C BCA, BMP, 11227-8, LIVR, 95086-9, 27136-7, 5643-2, 3040-3 #### [facility] ([id number]) [address] [place] [address] 06277 Anion gap [Moles/Vol] 10 mmol/L Normal 5-15 [facility] Comment on above: Performed By: #### C BCA, BMP, 75312-5, LIVR, 31050-8, 18991-2, 5643-2, 3040-3 #### [facility] ([id number]) [address] [place] [address] 23540 AST [Catalytic activity/Vol] 21 U/L Normal 0-41 [facility] Comment on above: Performed By: #### C BCA, BMP, 66450-4, LIVR, 71541-9, 35452-3, 5643-2, 3040-3 #### [facility] ([id number]) [address] [place] [address] 41608 Bilirubin [Mass/Vol] 0.5 mg/dL Normal 0.3-1.2 [facility] Comment on above: Performed By: #### C BCA, BMP, 90812-9, LIVR, 30910-5, 14420-1, 5643-2, 3040-3 #### [facility] ([id number]) [address] [place] [address] 58891 Calcium [Mass/Vol] 9.6 mg/dL Normal 8.5-10.5 [facility] Comment on above: Performed By: #### C BCA, BMP, 00496-0, LIVR, 12401-3, 71241-3, 5643-2, 3040-3 #### [facility] ([id number]) [address] [place] [address] 39585 Chloride [Moles/Vol] 105 mmol/L Normal 98-109 [facility] Comment on above: Performed By: #### C BCA, BMP, 46772-5, LIVR, 76161-6, 17142-5, 5643-2, 3040-3 #### [facility] ([id number]) [address] [place] [address] 90382 CO2 [Moles/Vol] 22 mmol/L Normal 22-32 [facility] Comment on above: Performed By: #### C BCA, BMP, 15948-2, LIVR, 74244-3, 55161-0, 5643-2, 3040-3 #### [facility] ([id number]) [address] [place] [address] 76236 Creatinine [Mass/Vol] 0.74 mg/dL Normal 0.40-1.00 [facility] Comment on above: Result Comment: METH OD TRACEABLE TO IDMS STANDARD Performed By: #### C BCA, BMP, 12499-2, LIVR, 34063-2, 91125-8, 5643-2, 3040-3 #### [facility] ([id number]) [address] [place] [address] 68956 eGFR (CKD-EPI) NON-RACE DEPENDENT >90 Normal >59 [facility] Comment on above: Result Comment: Reported eGFR is based on the CKD-EPI 2021 equation that does not use a race coefficient. Performed By: #### C BCA, BMP, 27327-9, LIVR, 44763-2, 25802-7, 5643-2, 3040-3 #### [facility] ([id number]) [address] [place] [address] 46320 Glucose [Mass/Vol] 93 mg/dL Normal 65-99 [facility] Comment on above: Performed By: #### C BCA, BMP, 10527-1, LIVR, 61623-0, 55514-0, 5643-2, 3040-3 #### [facility] ([id number]) [address] [place] [address] 99178 Potassium [Moles/Vol] 3.6 mmol/L Normal 3.5-5.0 [facility] Comment on above: Performed By: #### C BCA, BMP, 75111-8, LIVR, 92165-9, 94747-9, 5643-2, 3040-3 #### [facility] ([id number]) [address] [place] [address] 46242 Protein [Mass/Vol] 7.3 g/dL Normal 6.0-8.0 [facility] Comment on above: Performed By: #### C BCA, BMP, 69822-4, LIVR, 24956-0, 73766-5, 5643-2, 3040-3 #### [facility] ([id number]) [address] [place] [address] 54328 Sodium [Moles/Vol] 137 mmol/L Normal 134-146 [facility] Comment on above: Performed By: #### C BCA, BMP, 61303-2, LIVR, 72224-9, 51332-9, 5643-2, 3040-3 #### [facility] ([id number]) [address] [place] [address] 16792 Urea nitrogen [Mass/Vol] 7 mg/dL Normal 5-23 [facility] Comment on above: Performed By: #### C BCA, BMP, 39068-6, LIVR, 39177-2, 01125-5, 5643-2, 3040-3 #### [facility] ([id number]) [address] [place] [address] ABDOMEN AND PELVIS W CONT on [...] Rodgers MD on 01/14/2024 5:01 PM Normal [facility] LIPASEon 01-14-2024 Lipase [Catalytic activity/Vol] 72 U/L High 17-40 [facility] Comment on above: Performed By: #### C FRANNIE NIEVES, 80031-5, LIVR, 43247-6, 17432-7, 5643-2, 3040-3 #### [facility] ([id number]) [address] [place] [address] 64680 MAGNESIUMon 01-14-2024 Magnesium [Mass/Vol] 2.2 mg/dL Normal 1.8-2.6 [facility] Comment on above: Performed By: #### C FRANNIE NIEVES, 50270-5, LIVR, 93555-3, 73958-1, 5643-2, 3040-3 #### [facility] ([id number]) [address] [place] [address] 32553 URN MACROSCOPIC NURon 2023 BILIRUBIN JERE Negative Normal NEG [facility] Comment on above: Performed By: #### C BCA, BMP, 32580-9, LIVR, 10582-2, 85631-7, 5643-2, 3040-3 #### [facility] ([id number]) [address] [place] [address] [place] [address] BLOOD/HGB JERE Negative Normal NEG [facility] Comment on above: Performed By: #### C BCA, BMP, 07643-7, LIVR, 23248-5, 19171-2, 5643-2, 3040-3 #### [facility] ([id number]) [address] [place] [address] 15018 GLUCOSE JERE Negative Normal [facility] Comment on above: Performed By: #### C BCA, BMP, 80145-7, LIVR, 67275-1, 88618-9, 5643-2, 3040-3 #### [facility] ([id number]) [address] [place] [address] [place] [address] KETONES JERE Negative Normal NEG [facility] Comment on above: Performed By: #### C BCA, BMP, 26022-7, LIVR, 21029-4, 23084-2, 5643-2, 3040-3 #### [facility] ([id number]) [address] [place] [address] [place] [address] LEUKOCYTE ESTERASE JERE Negative Normal NEG [facility] Comment on above: Performed By: #### C BCA, BMP, 30246-0, LIVR, 85662-6, 20014-3, 5643-2, 3040-3 #### [facility] ([id number]) [address] [place] [address] [place] [address] NITRITE JERE Negative Normal NEG [facility] Comment on above: Performed By: #### C BCA, BMP, 79016-2, LIVR, 94676-4, 80132-1, 5643-2, 3040-3 #### [facility] ([id number]) [address] [place] [address] 04808 PH JERE 5.5 Normal 5.0-8.5 [facility] Comment on above: Performed By: #### C BCA, BMP, 16365-3, LIVR, 88095-3, 41442-6, 5643-2, 3040-3 #### [facility] ([id number]) [address] [place] [address] 77098 PROTEIN JERE Negative Normal NEG [facility] Comment on above: Performed By: #### C BCA, BMP, 18761-7, LIVR, 58098-3, 39257-2, 5643-2, 3040-3 #### [facility] ([id number]) [address] [place] [address] 51890 SPECIFIC GRAVITY JERE >=1.030 Normal 1.003-1 .03 5 [facility] Comment on above: Performed By: #### C BCA, BMP, 97323-6, LIVR, 68378-3, 10361-1, 5643-2, 3040-3 #### [facility] ([id number]) [address] [place] [address] 31838 UROBILINOGEN JERE 0.2 eu/dL Normal <1.1 [facility] Comment on above: Performed By: #### C BCA, BMP, 43096-2, LIVR, 48376-7, 00465-6, 5643-2, 3040-3 #### [facility] ([id number]) [address] [place] [address] 14659 CBC with Auto Differentialon 01-07-2024 Basophils (Bld) [#/Vol] 0.09 10*3/uL [facility] Basophils/100 WBC (Bld) 1 % 0 - 2 % [facility] Eosinophils (Bld) [#/Vol] 0.10 10*3/uL [facility] Eosinophils/100 WBC (Bld) 1 % 1 - 4 % [facility] Erythrocyte distribution width (RBC) [Ratio] 12.2 % 11.8 - 14.4 % [facility] Hematocrit (Bld) [Volume fraction] 46.3 % 36.3 - 47.1 % [facility] Hemoglobin (Bld) [Mass/Vol] 15.9 g/dL High 11.9 - 15.1 g/dL [facility] Immature granulocytes (Bld) [#/Vol] [facility] Immature granulocytes/100 WBC (Bld) 0 % 0 [facility] Interpretation and review of laboratory results Abnormal [facility] Lymphocytes/100 WBC (Bld) 28 % 24 - 43 % [facility] Lymphocytes/100 WBC (Bld) 2.73 % [facility] MCH (RBC) [Entitic mass] 33.8 pg High 25.2 - 33.5 pg [facility] MCHC (RBC) [Mass/Vol] 34.3 g/dL 28.4 - 34.8 g/dL [facility] MCV (RBC) [Entitic vol] 98.3 fL 82.6 - 102.9 fL [facility] Monocytes/100 WBC (Bld) 9 % 3 - 12 % [facility] Monocytes/100 WBC (Bld) 0.88 % [facility] Neutrophils/100 WBC (Bld) 61 % 36 - 65 % [facility] Nucleated RBC/100 WBC (Bld) [Ratio] 0.0 % 0.0 per 100 WBC [facility] Platelet mean volume (Bld) [Entitic vol] 9.7 fL 8.1 - 13.5 fL [facility] Platelets (Bld) [#/Vol] 277 10*3/uL [facility] RBC (Bld) [#/Vol] 4.71 10*6/uL 3.95 - 5.11 m/uL [facility] Segmented neutrophils/100 WBC (Bld) 6.06 % [facility] WBC other (Bld) [#/Vol] 9.9 [facility] CBC with Diffon 01-07-2024 Abs. Basophil 0.09 k/uL Normal 0.00-0.20 [facility] Comment on above: Performed By: #### C P, CDP, LIP #### [address] [place] [address] Entry Level Recruiter: Ion Jasso MD Abs.Imm.Granulocyte <0.03 Normal 0.00-0.30 [facility] Comment on above: Performed By: #### C P, CDP, LIP #### [facility] [address] [place] [address] Entry Level Recruiter: Ion Jasso MD Abs.Neutrophil (Seg) 6.06 k/uL Normal 1.50-8.10 [facility] Comment on above: Performed By: #### C P, CDP, LIP #### [address] [place] [address] Entry Level Recruiter: Ion Jasso MD Basophils/100 WBC (Bld) 1 % Normal 0-2 [facility] Comment on above: Performed By: #### C P, CDP, LIP #### [address] [place], [facility] Entry Level Recruiter: Ion Jasso MD Eosinophils (Bld) [#/Vol] 0.10 10*3/uL Normal 0.00-0.44 [facility] Comment on above: Performed By: #### C P, CDP, LIP #### [address] [place], [facility]83 Entry Level Recruiter: Ion Jasso MD Eosinophils/100 WBC (Bld) 1 % Normal 1-4 [facility] Comment on above: Performed By: #### C P, CDP, LIP #### [address] [place], [facility]83 Entry Level Recruiter: Ion Jasso MD Erythrocyte distribution width (RBC) [Ratio] 12.2 % Normal 11.8-14.4 [facility] Comment on above: Performed By: #### C P, CDP, LIP #### [facility] [address] [place] [address] Entry Level Recruiter: Ion Jasso MD Hematocrit (Bld) [Volume fraction] 46.3 % Normal 36.3-47.1 [facility] Comment on above: Performed By: #### C P, CDP, LIP #### [facility] [address] [place] [address] Entry Level Recruiter: Ion Jasso MD Hemoglobin (Bld) [Mass/Vol] 15.9 g/dL High 11.9-15.1 [facility] Comment on above: Performed By: #### C P, CDP, LIP #### [address] [place] [address] Entry Level Recruiter: Ion Jasso MD Immature granulocytes/100 WBC (Bld) 0 % Normal 0 [facility] Comment on above: Performed By: #### C P, CDP, LIP #### [address] [place] [address] Entry Level Recruiter: Ion Jasso MD Lymphocytes (Bld) [#/Vol] 2.73 10*3/uL Normal 1.10-3.70 [facility] Comment on above: Performed By: #### C P, CDP, LIP #### [facility] [address] [place], [facility]83 Entry Level Recruiter: Ion Jasso MD Lymphocytes/100 WBC (Bld) 28 % Normal 24-43 [facility] Comment on above: Performed By: #### C P, CDP, LIP #### [facility] [address] [place] [address] Entry Level Recruiter: Ion Jasso MD MCH (RBC) [Entitic mass] 33.8 pg High 25.2-33.5 [facility] Comment on above: Performed By: #### C P, CDP, LIP #### [facility] [address] [place], [facility]83 Entry Level Recruiter: Ion Jasso MD MCHC (RBC) [Mass/Vol] 34.3 g/dL Normal 28.4-34.8 [facility] Comment on above: Performed By: #### C P, CDP, LIP #### [facility] [address] [place], [place] [address] Entry Level Recruiter: Ion Jasso MD MCV (RBC) [Entitic vol] 98.3 fL Normal 82.6-102.9 [facility] Comment on above: Performed By: #### C P, CDP, LIP #### [address] [place] [id number] Entry Level Recruiter: Ion Jasso MD Monocytes (Bld) [#/Vol] 0.88 10*3/uL Normal 0.10-1.20 [facility] Comment on above: Performed By: #### C P, CDP, LIP #### [address] [place], [facility] Entry Level Recruiter: Ion Jasso MD Monocytes/100 WBC (Bld) 9 % Normal 3-12 [facility] Comment on above: Performed By: #### C P, CDP, LIP #### [address] [place], [place] [address] Entry Level Recruiter: Ion Jasso MD Neutrophil (Seg) 61 % Normal 36-65 [facility] Comment on above: Performed By: #### C P, CDP, LIP #### [address] [place] [id number] Entry Level Recruiter: Ion Jasso MD NRBC Automated 0.0 per 100 WBC Normal 0.0 [facility] Comment on above: Performed By: #### C P, CDP, LIP #### [address] [place] [address] Entry Level Recruiter: Ion Jasso MD Platelet mean volume (Bld) [Entitic vol] 9.7 fL Normal 8.1-13.5 [facility] Comment on above: Performed By: #### C P, CDP, LIP #### [facility] [address] [place], [place] [id number] Entry Level Recruiter: Ion Jasso MD Platelets (Bld) [#/Vol] 277 10*3/uL Normal 138-453 [facility] Comment on above: Performed By: #### C P, CDP, LIP #### [address] [place], [facility]83 Entry Level Recruiter: Ion Jasso MD RBC (Bld) [#/Vol] 4.71 10*6/uL Normal 3.95-5.11 [facility] Comment on above: Performed By: #### C P, CDP, LIP #### [address] [place] [address] Entry Level Recruiter: Ion Jasso MD WBC (Bld) [#/Vol] 9.9 10*3/uL Normal 3.5-11.3 [facility] Comment on above: Performed By: #### C P, CDP, LIP #### [address] [place], [facility]83 Entry Level Recruiter: Ion Jasso MD Comp Metabolic Profon 2023 Albumin [Mass/Vol] 4.3 g/dL Normal 3.5-5.2 [facility] Comment on above: Performed By: #### C P, CDP, LIP #### [address] [place] [address] Entry Level Recruiter: Ion Jasso MD Albumin/Glob Ratio 1.6 Normal 1.0-2.5 [facility] Comment on above: Performed By: #### C P, CDP, LIP #### [address] [address] [place] [id number] Entry Level Recruiter: Ion Jasso MD Alkaline Phos 145 U/L High 35-104 [facility] Comment on above: Performed By: #### C P, CDP, LIP #### [facility] [address] [place], [place] 4897383 Entry Level Recruiter: Ion Jasso MD ALT [Catalytic activity/Vol] 11 U/L Normal 10-35 [facility] Comment on above: Performed By: #### C P, CDP, LIP #### [facility] [address] [place] 7784583 Entry Level Recruiter: Ion Jasso MD Anion gap [Moles/Vol] 12 mmol/L Normal 9-16 [facility] Comment on above: Performed By: #### C P, CDP, LIP #### [facility] [address] [place], [place] 0789383 Entry Level Recruiter: Ion Jasso MD AST [Catalytic activity/Vol] 25 U/L Normal 10-35 [facility] Comment on above: Result Comment: Spec imen hemolysis has exceeded the interference as defined by Joycelyn. Value may be falsely increased. Suggest recollection if clinically indicated. Performed By: #### C P, CDP, LIP #### [address] [place] 2175283 Entry Level Recruiter: Ion Jasso MD Bilirubin [Mass/Vol] mg/dL Normal 0.00-1.20 [facility] Comment on above: Performed By: #### C P, CDP, LIP #### [facility] [address] [place], [place] 2238283 Entry Level Recruiter: Ion Jasso MD BUN/CRE Ratio 9 Normal 9-20 [facility] Comment on above: Performed By: #### C P, CDP, LIP #### [facility] [address] [place], [place] 2194683 Entry Level Recruiter: Ion Jasso MD Calcium [Mass/Vol] 9.8 mg/dL Normal 8.6-10.4 [facility] Comment on above: Performed By: #### C P, CDP, LIP #### [facility] [address] [place] [address] Entry Level Recruiter: Ion Jasso MD Chloride [Moles/Vol] 103 mmol/L Normal 98-107 [facility] Comment on above: Performed By: #### C P, CDP, LIP #### [facility] [address] [place], [place] 5124683 Entry Level Recruiter: Ion Jasso MD CO2 [Moles/Vol] 22 mmol/L Normal 20-31 [facility] Comment on above: Performed By: #### C P, CDP, LIP #### [facility] [address] [place], [place] 1672983 Entry Level Recruiter: Ion Jasso MD Creatinine [Mass/Vol] 0.8 mg/dL Normal 0.50-0.90 [facility] Comment on above: Performed By: #### C P, CDP, LIP #### [facility] [address] [place] [address] Entry Level Recruiter: Ion Jasso MD GFR/1.73 sq M.predicted among non-blacks MDRD (S/P/Bld) [Vol rate/Area] mL/min/{1.73_m2} Normal >60 [facility] Comment on above: Result Comment: These [...] By: #### C P, CDP, LIP #### [facility] [address] [place] 1503083 Entry Level Recruiter: Ion Jasso MD Glucose [Mass/Vol] 96 mg/dL Normal 74-99 [facility] Comment on above: Performed By: #### C P, CDP, LIP #### [facility] [address] [place], [place] 1014383 Entry Level Recruiter: Ion Jasso MD Potassium [Moles/Vol] 4.6 mmol/L Normal 3.7-5.3 [facility] Comment on above: Result Comment: Spec imen hemolysis has exceeded the interference as defined by Joycelyn. Value may be falsely increased. Suggest recollection if clinically indicated. Performed By: #### C P, CDP, LIP #### [facility] [address] [place], [place] 1137983 Entry Level Recruiter: Ion Jasso MD Protein [Mass/Vol] 7.0 g/dL Normal 6.6-8.7 [facility] Comment on above: Performed By: #### C P, CDP, LIP #### [facility] [address] [place], [place] [phone] Entry Level Recruiter: Ion Jasso MD Sodium [Moles/Vol] 137 mmol/L Normal 136-145 [facility] Comment on above: Performed By: #### C P, CDP, LIP #### [facility] [address] [place], [place] 5949683 Entry Level Recruiter: Ion Jasso MD Urea nitrogen [Mass/Vol] 7 mg/dL Normal 6-20 [facility] Comment on above: Performed By: #### C P, CDP, LIP #### [facility] [address] [place] [address] Entry Level Recruiter: Ion Jasso MD Comprehensive Metabolic Pane [facility] 01-07-2024 Albumin [Mass/Vol] 4.3 g/dL 3.5 - 5.2 g/dL [facility] Albumin/Globulin [Mass ratio] 1.6 {ratio} 1.0 - 2.5 [facility] ALP [Catalytic activity/Vol] 145 U/L High 35 - 104 U/L [facility] ALT [Catalytic activity/Vol] 11 U/L 10 - 35 U/L [facility] Anion gap [Moles/Vol] 12 mmol/L 9 - 16 mmol/L [facility] AST [Catalytic activity/Vol] 25 U/L 10 - 35 U/L [facility] Comment on above: Specimen hemolysis h as exceeded the interference as defined by Joycelyn. Value may be falsely increased. Suggest recollection if clinically indicated. Bilirubin [Mass/Vol] mg/dL 0.00 - 1.20 mg/dL [facility] Calcium [Mass/Vol] 9.8 mg/dL 8.6 - 10. 4 mg/dL [facility] Chloride [Moles/Vol] 103 mmol/L 98 - 10 7 mmol/L [facility] CO2 [Moles/Vol] 22 mmol/L 20 - 31 mmol/L [facility] Creatinine [Mass/Vol] 0.8 mg/dL 0.50 - 0.90 mg/dL [facility] Est, Glom Filt Rate - PINF [facility] Comment on above: These results are not [...] [Mass/Vol] 96 mg/dL 74 - 99 mg/dL [facility] Potassium [Moles/Vol] 4.6 mmol/L 3.7 - 5.3 mmol/L [facility] Comment on above: Specimen hemolysis h as exceeded the interference as defined by Joycelyn. Value may be falsely increased. Suggest recollection if clinically indicated. Protein [Mass/Vol] 7.0 g/dL 6.6 - 8.7 g/dL [facility] Sodium [Moles/Vol] 137 mmol/L 136 - 145 mmol/L [facility] Urea nitrogen [Mass/Vol] 7 mg/dL 6 - 20 mg/dL [facility] Urea nitrogen/Creatinine [Mass ratio] 9 mg/mg 9 - 20 [facility] Lactic Acidon 01-07-2024 Lactate (BldV) [Moles/Vol] 1.3 mmol/L 0.5 - 2.2 mmol/L [facility] Lactate [Moles/Vol] 1.3 mmol/L Normal 0.5-2.2 [facility] Comment on above: Performed By: #### L ACTIC #### [facility] [address] [place] [address] Entry Level Recruiter: Ion Jasso MD Lipaseon 01-07-2024 Lipase [Catalytic activity/Vol] 144 U/L High 13 - 60 U/L [facility] Lipase [Catalytic activity/Vol] 144 U/L High 13-60 [facility] Comment on above: Performed By: #### C DP, LIP, CP #### [facility] [address] [place] [address] Entry Level Recruiter: Ion Jasso MD No Panel Informationon 01-06 Interpretation and review of laboratory results Abnormal [facility] Urinalysis w/ Microon 2023 Bilirubin, SemiQt,Ur Negative Normal NEG [facility] Comment on above: Performed By: #### U AMIC #### [facility] [address] [place] [address] Entry Level Recruiter: Ion Jasso MD Blood, Urine Negative Normal NEG [facility] Comment on above: Performed By: #### U AMIC #### [facility] [address] [place] [address] Entry Level Recruiter: Ion Jasso MD Clarity (U) Clear Normal CLEAR [facility] Comment on above: Performed By: #### U AMIC #### [facility] [address] [place] [address] Entry Level Recruiter: Ion Jasso MD Color (U) Yellow Normal YEL [facility] Comment on above: Performed By: #### U AMIC #### [facility] [address] [place], [place] 2952883 Entry Level Recruiter: Ion Jasso MD Epithelial cells LM Ql (Urine sed) 0 TO 2 Normal 0-25 [facility] Comment on above: Performed By: #### U AMIC #### [facility] [address] [place], [place] 3500283 Entry Level Recruiter: Ion Jasso MD Glucose Ql (U) Negative Normal NEG [facility] Comment on above: Performed By: #### U AMIC #### [facility] [address] [place] [address] Dr. [place], [place] 1523483 Entry Level Recruiter: Ion Jasso MD Ketones Ql (U) Negative Normal NEG [facility] Comment on above: Performed By: #### U AMIC #### [facility] [address] [place] [address] Dr. [place], [place] 7885383 Entry Level Recruiter: Ion Jasso MD Leukocyte esterase Test strip Ql (U) Negative Normal NEG [facility] Comment on above: Performed By: #### U AMIC #### [facility] [address] [place] [address] Dr. [place], [place] 0678983 Entry Level Recruiter: Ion Jasso MD Nitrite,Ur Negative Normal NEG [facility] Comment on above: Performed By: #### U AMIC #### [facility] [address] [place], [place] 7610983 Entry Level Recruiter: Ion Jasso MD PH,Ur 6.0 Normal 5.0-9.0 [facility] Comment on above: Performed By: #### U AMIC #### [facility] [address] [place] [address] Dr. [place], [place] 1038983 Entry Level Recruiter: Ion Jasso MD Protein Ql (U) Negative Normal NEG [facility] Comment on above: Performed By: #### U AMIC #### [facility] [address] [place], [place] 1045083 Entry Level Recruiter: Ion Jasso MD Spec. [place],Ur 1.010 Normal 1.010-1.02 0 [facility] Comment on above: Performed By: #### U AMIC #### [facility] [address] [place] [address]283 Entry Level Recruiter: Ion Jasso MD Urine RBC's None Normal 0-2 [facility] Comment on above: Performed By: #### U AMIC #### [facility] [address] [place], [place] 8961783 Entry Level Recruiter: Ion Jasso MD Urine WBC's 0 TO 2 Normal 0-5 [facility] Comment on above: Performed By: #### U AMIC #### [facility] [address] [place], [facility] Entry Level Recruiter: Ion Jasso MD Urobilinogen,Ur Normal Normal 0.0-1.0 [facility] Comment on above: Performed By: #### U AMIC #### [facility] [address] [place] [address] Entry Level Recruiter: Ion Jasso MD Urinalysis with Microscopico n 01-07-2024 Bilirubin Ql (U) Negative NEGATIVE [facility] Clarity (U) Clear Clear [facility] Color (U) Yellow Yellow [facility] Epithelial cells LM.HPF (Urine sed) [#/Area] 0 TO 2 [facility] Glucose Test strip (U) [Mass/Vol] Negative NEGATIVE mg/dL [facility] Hemoglobin Auto test strip Ql (U) Negative NEGATIVE [facility] Ketones (U) [Mass/Vol] Negative NEGAT MATTHIAS mg/dL [facility] Leukocyte esterase Test strip Ql (U) Negative NEGATIVE [facility] Nitrite Ql (U) Negative NEGATIVE [facility] pH (U) 6.0 [pH] 5.0 - 9.0 [facility] Protein (U) [Mass/Vol] Negative NEGAT MATTHIAS mg/dL [facility] RBC LM.HPF (Urine sed) [#/Area] None [facility] Specific gravity (U) [Rel density] 1.010 1.010 - 1.020 [facility] Urobilinogen Qn (U) Normal 0.0 - 1. 0 EU/dL [facility] WBC LM.HPF (Urine sed) [#/Area] 0 TO 2 [facility] BASIC METABOLIC PANLon 12-28 Anion gap [Moles/Vol] 8 mmol/L Normal 5-15 [facility] Comment on above: Performed By: #### C BCA, BMP, 60925-1, LIVR, 33508-1, 63358-9, 5643-2, 3040-3 #### [facility] ([id number]) [address] [place] [address]807 Calcium [Mass/Vol] 9.7 mg/dL Normal 8.5-10.5 [facility] Comment on above: Performed By: #### C BCA, BMP, 25396-8, LIVR, 16857-7, 73377-7, 5643-2, 3040-3 #### [facility] ([id number]) [address] [place] [address] 72342 Chloride [Moles/Vol] 106 mmol/L Normal 98-109 [facility] Comment on above: Performed By: #### C BCA, BMP, 91027-9, LIVR, 65167-5, 82127-1, 5643-2, 3040-3 #### [facility] ([id number]) [address] [place] [address] 07280 CO2 [Moles/Vol] 24 mmol/L Normal 22-32 [facility] Comment on above: Performed By: #### C BCA, BMP, 16776-0, LIVR, 27072-3, 68720-5, 5643-2, 3040-3 #### [facility] ([id number]) [address] [place] [address] 59311 Creatinine [Mass/Vol] 0.88 mg/dL Normal 0.40-1.00 [facility] Comment on above: Result Comment: METH OD TRACEABLE TO IDMS STANDARD Performed By: #### C BCA, BMP, 79197-8, LIVR, 34096-3, 99036-2, 5643-2, 3040-3 #### [facility] ([id number]) [address] [place] [address] 29266 GFR/1.73 sq M.predicted among non-blacks MDRD (S/P/Bld) [Vol rate/Area] 78 mL/min/{1.73_m2} Normal >59 [facility] Comment on above: Result Comment: Reported eGFR is based on the CKD-EPI 2020 equation that does not use a race coefficient. Performed By: #### C BCA, BMP, 16210-2, LIVR, 96752-5, 48226-4, 5643-2, 3040-3 #### [facility] ([id number]) [address] [place] [address] 60748 Glucose [Mass/Vol] 82 mg/dL Normal 65-99 [facility] Comment on above: Performed By: #### C BCA, BMP, 74442-5, LIVR, 13911-4, 83816-3, 5643-2, 3040-3 #### [facility] ([id number]) [address] [place] [address] 51952 Potassium [Moles/Vol] 4.2 mmol/L Normal 3.5-5.0 [facility] Comment on above: Result Comment: SPEC IMEN HEMOLYZED, RESULTS INCREASED Performed By: #### C BCA, BMP, 35505-4, LIVR, 01421-9, 60396-8, 5643-2, 3040-3 #### [facility] ([id number]) [address] [place] [address] 64053 Sodium [Moles/Vol] 138 mmol/L Normal 134-146 [facility] Comment on above: Performed By: #### C BCA, BMP, 03136-6, LIVR, 09900-8, 69014-1, 5643-2, 3040-3 #### [facility] ([id number]) [address] [place] [address] 88294 Urea nitrogen [Mass/Vol] 12 mg/dL Normal 5-23 [facility] Comment on above: Performed By: #### C BCA, BMP, 71423-4, LIVR, 29060-3, 43055-0, 5643-2, 3040-3 #### [facility] ([id number]) [address] [place] [address] 00811 CBC AND AUTO DIFFon 12-29-19 24 ABSOLUTE BASOPHIL 0.1 X10E9/L Normal 0.0-0.2 [facility] Comment on above: Performed By: #### C BCA, BMP, 09904-5, LIVR, 07425-8, 85170-8, 5643-2, 3040-3 #### [facility] ([id number]) [address] [place] [address] 98108 ABSOLUTE NEUTROPHIL 3.9 X10E9/L Normal 1.5-6.6 [facility] Comment on above: Performed By: #### C BCA, BMP, 11500-9, LIVR, 50884-8, 10415-2, 5643-2, 3040-3 #### [facility] ([id number]) [address] [place] [address] 52466 Basophils/100 WBC (Bld) 1.3 % Normal [facility] Comment on above: Performed By: #### C BCA, BMP, 76010-2, LIVR, 48621-9, 31278-4, 5643-2, 3040-3 #### [facility] ([id number]) [address] [place] [address] 40916 Eosinophils (Bld) [#/Vol] 0.2 10*3/uL Normal 0.0-0.4 [facility] Comment on above: Performed By: #### C BCA, BMP, 58943-2, LIVR, 76442-8, 03468-1, 5643-2, 3040-3 #### [facility] ([id number]) [address] [place] [address] 14477 Eosinophils/100 WBC (Bld) 2.3 % Normal [facility] Comment on above: Performed By: #### C BCA, BMP, 10167-7, LIVR, 24767-8, 43833-8, 5643-2, 3040-3 #### [facility] ([id number]) [address] [place] [address] 18217 Erythrocyte distribution width (RBC) [Ratio] 13.2 % Normal 11.5-15.0 [facility] Comment on above: Performed By: #### C BCA, BMP, 16872-3, LIVR, 98474-7, 15004-7, 5643-2, 3040-3 #### [facility] ([id number]) [address] [place] [address] 94723 Hematocrit (Bld) [Volume fraction] 41.8 % Normal 35-47 [facility] Comment on above: Performed By: #### C BCA, BMP, 94133-5, LIVR, 35614-0, 87797-8, 5643-2, 3040-3 #### [facility] ([id number]) [address] [place] [address] 81172 Hemoglobin (Bld) [Mass/Vol] 14.3 g/dL Normal 11.7-15.5 [facility] Comment on above: Performed By: #### C BCA, BMP, 05236-5, LIVR, 61736-5, 38185-4, 5643-2, 3040-3 #### [facility] ([id number]) [address] [place] [address] 03756 Lymphocytes (Bld) [#/Vol] 2.5 10*3/uL Normal 1.0-3.5 [facility] Comment on above: Performed By: #### C BCA, BMP, 66613-2, LIVR, 16984-0, 72350-3, 5643-2, 3040-3 #### [facility] ([id number]) [address] [place] [address] 70845 Lymphocytes/100 WBC (Bld) 33.1 % Normal [facility] Comment on above: Performed By: #### C BCA, BMP, 14886-2, LIVR, 04498-1, 86473-9, 5643-2, 3040-3 #### [facility] ([id number]) [address] [place] [address] 76032 MCH (RBC) [Entitic mass] 34.0 pg Normal 27-34 [facility] Comment on above: Performed By: #### C BCA, BMP, 58920-9, LIVR, 52235-1, 39627-2, 5643-2, 3040-3 #### [facility] ([id number]) [address] [place] [address] 77205 MCHC (RBC) [Mass/Vol] 34.1 g/dL Normal 32-36 [facility] Comment on above: Performed By: #### C BCA, BMP, 95749-4, LIVR, 94322-7, 27465-7, 5643-2, 3040-3 #### [facility] ([id number]) [address] [place] [address] 77965 MCV (RBC) [Entitic vol] 100 fL Normal 80-100 [facility] Comment on above: Performed By: #### C BCA, BMP, 86814-9, LIVR, 31822-6, 27848-7, 5643-2, 3040-3 #### [facility] ([id number]) [address] [place] [address] 07457 Monocytes (Bld) [#/Vol] 0.9 10*3/uL Normal 0-0.9 [facility] Comment on above: Performed By: #### C BCA, BMP, 35966-5, LIVR, 93857-3, 72987-2, 5643-2, 3040-3 #### [facility] ([id number]) [address] [place] [address] 94295 Monocytes/100 WBC (Bld) 12.0 % Normal [facility] Comment on above: Performed By: #### C BCA, BMP, 33027-4, LIVR, 87489-1, 93925-4, 5643-2, 3040-3 #### [facility] ([id number]) [address] [place] [address] 91421 Neutrophils/100 WBC (Bld) 51.3 % Normal [facility] Comment on above: Performed By: #### C BCA, BMP, 77495-1, LIVR, 63213-2, 69069-5, 5643-2, 3040-3 #### [facility] ([id number]) [address] [place] [address] 42088 Platelet mean volume (Bld) [Entitic vol] 8.2 fL Normal 7-12 [facility] Comment on above: Performed By: #### C BCA, BMP, 66381-0, LIVR, 29333-3, 83571-2, 5643-2, 3040-3 #### [facility] ([id number]) [address] [place] [address] 10558 Platelets (Bld) [#/Vol] 266 10*3/uL Normal 150-450 [facility] Comment on above: Performed By: #### C BCA, BMP, 07871-1, LIVR, 32077-3, 49706-4, 5643-2, 3040-3 #### [facility] ([id number]) [address] [place] [address] 96424 RBC COUNT 4.19 X10E12/L Normal 3.80-5.20 [facility] Comment on above: Performed By: #### C BCA, BMP, 43178-1, LIVR, 84680-4, 69724-7, 5643-2, 3040-3 #### [facility] ([id number]) [address] [place] [address] 00926 WBC (Bld) [#/Vol] 7.7 10*3/uL Normal 4.0-11.0 [facility] Comment on above: Performed By: #### C BCA, BMP, 07811-0, LIVR, 31094-4, 29881-8, 5643-2, 3040-3 #### [facility] ([id number]) [address] [place] [address] ABDOMEN AND PELVIS WO CON Ton [...] Presley MD on 12/29/2023 6:27 AM Normal [facility] ETHANOLon 12-29-2023 Ethanol [Mass/Vol] mg/dL Normal 0.00-0.08 [facility] Comment on above: Result Comment: This report is intended for use in clinical monitoring or management of patients. Performed By: #### C BCA, BMP, 37700-2, LIVR, 80260-2, 49632-3, 5643-2, 3040-3 #### [facility] ([id number]) [address] [place] [address] 02343 Fibrin D-dimer DDU (PPP) [Ma ss/Vol]on 12-29-2023 D DIMER <150 Normal <255 [facility] Comment on above: Result Comment: Results <255 ng/mL DDU: The presence of a VTE can safely be excluded with a negative D-Dimer result and Wells score. A negative result doesn't exclude the possibility of DIC. The test be repeated along with other diagnostic tests if the patient's symptoms persist or worsen. [email or web address] Performed By: #### C BCA, BMP, 36987-0, LIVR, 31598-3, 61697-2, 5643-2, 3040-3 #### [facility] ([id number]) [address] [place] [address] 78844 LIPASEon 12-29-2023 Lipase [Catalytic activity/Vol] 55 U/L High 17-40 [facility] Comment on above: Performed By: #### C BCA, BMP, 50393-8, LIVR, 00450-0, 24655-5, 5643-2, 3040-3 #### [facility] ([id number]) [address] [place] [address] [place] [address] LIVER PANELon 12-29-2023 Albumin [Mass/Vol] 3.9 g/dL Normal 3.2-5.3 [facility] Comment on above: Performed By: #### C BCA, BMP, 04098-4, LIVR, 64987-2, 68167-1, 5643-2, 3040-3 #### [facility] ([id number]) [address] [place] [address] 46026 ALP [Catalytic activity/Vol] 111 U/L Normal 39-130 [facility] Comment on above: Performed By: #### C BCA, BMP, 69918-0, LIVR, 23314-6, 29266-6, 5643-2, 3040-3 #### [facility] ([id number]) [address] [place] [address] 75967 ALT [Catalytic activity/Vol] 11 U/L Normal 0-31 [facility] Comment on above: Performed By: #### C BCA, BMP, 04432-4, LIVR, 82662-6, 18167-8, 5643-2, 3040-3 #### [facility] ([id number]) [address] [place] [address] 76750 AST [Catalytic activity/Vol] 23 U/L Normal 0-41 [facility] Comment on above: Performed By: #### C BCA, BMP, 41238-2, LIVR, 08458-6, 06579-9, 5643-2, 3040-3 #### [facility] ([id number]) [address] [place] [address] 78086 Bilirubin [Mass/Vol] 0.5 mg/dL Normal 0.3-1.2 [facility] Comment on above: Result Comment: RESU LTS QUESTIONABLE DUE TO HEMOLYSIS Performed By: #### C BCA, BMP, 48346-8, LIVR, 56218-6, 11077-5, 5643-2, 3040-3 #### [facility] ([id number]) [address] [place] [address] 02387 Bilirubin.direct [Mass/Vol] 0.3 mg/dL Normal 0.0-0.4 [facility] Comment on above: Performed By: #### C BCA, BMP, 12717-3, LIVR, 26056-5, 86952-3, 5643-2, 3040-3 #### [facility] ([id number]) [address] [place] [address] 86256 Protein [Mass/Vol] 6.9 g/dL Normal 6.0-8.0 [facility] Comment on above: Performed By: #### C BCA, BMP, 22212-4, LIVR, 24845-5, 62288-1, 5643-2, 3040-3 #### [facility] ([id number]) [address] [place] [address] 54881 MAGNESIUMon 12-29-2023 Magnesium [Mass/Vol] 2.2 mg/dL Normal 1.8-2.6 [facility] Comment on above: Performed By: #### C BCA, BMP, 51681-4, LIVR, 84274-8, 10230-1, 5643-2, 3040-3 #### [facility] ([id number]) [address] [place] [address] 74853 Troponin I.cardiac High sens itivity method [Mass/Vol]on 12-29-2023 1 HOUR TROP I, HIGH SENSITIVITY 2 ng/L Normal <16 [facility] Comment on above: Performed By: #### 8 9579-7 #### [facility] ([id number]) [address] [place] [id number] TROPONIN I, HIGH SENSITIVITY 2 ng/L Normal <16 [facility] Comment on above: Performed By: #### C BCA, BMP, 28592-9, LIVR, 92924-1, 52229-6, 5643-2, 3040-3 #### [facility] ([id number]) [address] [place] [address], [place] [address] CBC with Diffon 09-29-2023 Basophils (Bld) [#/Vol] 0.05 10*3/uL [facility] Basophils/100 WBC (Bld) 0 % 0 - 2 % [facility] Eosinophils (Bld) [#/Vol] 0.05 10*3/uL [facility] Eosinophils/100 WBC (Bld) 0 % Low 1 - 4 % [facility] Erythrocyte distribution width (RBC) [Ratio] 12.9 % 11.8 - 14.4 % [facility] Hematocrit (Bld) [Volume fraction] 40.3 % 36.3 - 47.1 % [facility] Hemoglobin (Bld) [Mass/Vol] 14.2 g/dL 11.9 - 15.1 g/dL [facility] Immature granulocytes (Bld) [#/Vol] [facility] Immature granulocytes/100 WBC (Bld) 0 % 0 [facility] Interpretation and review of laboratory results Abnormal [facility] Lymphocytes/100 WBC (Bld) 19 % Low 24 - 43 % [facility] Lymphocytes/100 WBC (Bld) 2.18 % [facility] MCH (RBC) [Entitic mass] 33.8 pg High 25.2 - 33.5 pg [facility] MCHC (RBC) [Mass/Vol] 35.2 g/dL High 28.4 - 34.8 g/dL [facility] MCV (RBC) [Entitic vol] 96.0 fL 82.6 - 102.9 fL [facility] Monocytes/100 WBC (Bld) 8 % 3 - 12 % [facility] Monocytes/100 WBC (Bld) 0.94 % [facility] Neutrophils/100 WBC (Bld) 73 % High 36 - 65 % [facility] Nucleated RBC/100 WBC (Bld) [Ratio] 0.0 % 0.0 per 100 WBC [facility] Platelet mean volume (Bld) [Entitic vol] 9.4 fL 8.1 - 13.5 fL [facility] Platelets (Bld) [#/Vol] 193 10*3/uL [facility] RBC (Bld) [#/Vol] 4.20 10*6/uL 3.95 - 5.11 m/uL [facility] Segmented neutrophils/100 WBC (Bld) 8.10 % [facility] WBC other (Bld) [#/Vol] 11.3 [facility] Abs. Basophil 0.05 k/uL Normal 0.00-0.20 [facility] Comment on above: Performed By: #### C ELMER LIP, CP #### [address] [place] [address] Entry Level Recruiter: Ion Jasso MD Abs.Imm.Granulocyte <0.03 Normal 0.00-0.30 [facility] Comment on above: Performed By: #### C ELMER LIP, CP #### [address] [place], [facility]83 Entry Level Recruiter: Ion Jasso MD Abs.Neutrophil (Seg) 8.10 k/uL Normal 1.50-8.10 [facility] Comment on above: Performed By: #### C ELMER LIP, CP #### [address] [place] [address] Entry Level Recruiter: Ion Jasso MD Basophils/100 WBC (Bld) 0 % Normal 0-2 [facility] Comment on above: Performed By: #### C DP LIP, CP #### [address] [place] [address] Entry Level Recruiter: Ion Jasso MD Eosinophils (Bld) [#/Vol] 0.05 10*3/uL Normal 0.00-0.44 [facility] Comment on above: Performed By: #### C DP LIP, CP #### [address] [place], [place] [address] Entry Level Recruiter: Ion Jasso MD Eosinophils/100 WBC (Bld) 0 % Low 1-4 [facility] Comment on above: Performed By: #### C DP LIP, CP #### [address] [place], [facility]83 Entry Level Recruiter: Ion Jasso MD Erythrocyte distribution width (RBC) [Ratio] 12.9 % Normal 11.8-14.4 [facility] Comment on above: Performed By: #### C DP, LIP, CP #### [address] [place], [place] [address] Entry Level Recruiter: Ion Jasso MD Hematocrit (Bld) [Volume fraction] 40.3 % Normal 36.3-47.1 [facility] Comment on above: Performed By: #### C ELMER LIP, CP #### [address] [place], [place] [address] Entry Level Recruiter: Ion Jasso MD Hemoglobin (Bld) [Mass/Vol] 14.2 g/dL Normal 11.9-15.1 [facility] Comment on above: Performed By: #### C DP LIP, CP #### [address] [place], [place] [address] Entry Level Recruiter: Ion Jasso MD Immature granulocytes/100 WBC (Bld) 0 % Normal 0 [facility] Comment on above: Performed By: #### C DP LIP, CP #### [address] [place], [place] [address] Entry Level Recruiter: Ion Jasso MD Lymphocytes (Bld) [#/Vol] 2.18 10*3/uL Normal 1.10-3.70 [facility] Comment on above: Performed By: #### C DP LIP, CP #### [address] [place], [place] [address] Entry Level Recruiter: Ion Jasso MD Lymphocytes/100 WBC (Bld) 19 % Low 24-43 [facility] Comment on above: Performed By: #### C REBECA PAYNE, CP #### [address] [place] [address] Entry Level Recruiter: Ion Jasso MD MCH (RBC) [Entitic mass] 33.8 pg High 25.2-33.5 [facility] Comment on above: Performed By: #### C ELMER LIP, CP #### [address] [place] [address] Entry Level Recruiter: Ion Jasso MD MCHC (RBC) [Mass/Vol] 35.2 g/dL High 28.4-34.8 [facility] Comment on above: Performed By: #### C REBECA PAYNE, CP #### [address] [place], [place] [address] Entry Level Recruiter: Ion Jasso MD MCV (RBC) [Entitic vol] 96.0 fL Normal 82.6-102.9 [facility] Comment on above: Performed By: #### C REBECA PAYNE, CP #### [address] [place], [facility]83 Entry Level Recruiter: Ion Jasso MD Monocytes (Bld) [#/Vol] 0.94 10*3/uL Normal 0.10-1.20 [facility] Comment on above: Performed By: #### C REBECA PAYNE, CP #### [address] [place] [address] Entry Level Recruiter: Ion Jasso MD Monocytes/100 WBC (Bld) 8 % Normal 3-12 [facility] Comment on above: Performed By: #### C ELMER LIP, CP #### [address] [place], [place] [id number] Entry Level Recruiter: Ion Jasso MD Neutrophil (Seg) 73 % High 36-65 [facility] Comment on above: Performed By: #### C DP LIP, CP #### [facility] [address] [place], [place] [address] Entry Level Recruiter: Ion Jasso MD NRBC Automated 0.0 per 100 WBC Normal 0.0 [facility] Comment on above: Performed By: #### C ELMER LIP, CP #### [facility] [address] [place], [place] [address] Entry Level Recruiter: Ion Jasso MD Platelet mean volume (Bld) [Entitic vol] 9.4 fL Normal 8.1-13.5 [facility] Comment on above: Performed By: #### C REBECA PAYNE, CP #### [address] [place], [place] [address] Entry Level Recruiter: Ion Jasso MD Platelets (Bld) [#/Vol] 193 10*3/uL Normal 138-453 [facility] Comment on above: Performed By: #### C REBECA PAYNE, CP #### [address] [place], [place] [address] Entry Level Recruiter: Ion Jasso MD RBC (Bld) [#/Vol] 4.20 10*6/uL Normal 3.95-5.11 [facility] Comment on above: Performed By: #### C REBECA PAYNE, CP #### [address] [place], [place] [address] Entry Level Recruiter: Ion Jasso MD WBC (Bld) [#/Vol] 11.3 10*3/uL Normal 3.5-11.3 [facility] Comment on above: Performed By: #### C REBECA PAYNE, CP #### [facility] [address] [place], [place] [id number] Entry Level Recruiter: Ion Jasso MD CMPon 09-29-2023 Albumin [Mass/Vol] 4.4 g/dL 3.5 - 5.2 g/dL [facility] Albumin/Globulin [Mass ratio] 1.9 {ratio} 1.0 - 2.5 [facility] ALP [Catalytic activity/Vol] 123 U/L High 35 - 104 U/L [facility] ALT [Catalytic activity/Vol] 15 U/L 5 - 33 U/L [facility] Anion gap [Moles/Vol] 10 mmol/L 9 - 17 mmol/L [facility] AST [Catalytic activity/Vol] 21 U/L NINF - 32 U/L [facility] Bilirubin [Mass/Vol] 0.3 mg/dL 0.3 - 1 .2 mg/dL [facility] Calcium [Mass/Vol] 10.0 mg/dL 8.6 - 10. 4 mg/dL [facility] Chloride [Moles/Vol] 104 mmol/L 98 - 10 7 mmol/L [facility] CO2 [Moles/Vol] 24 mmol/L 20 - 31 mmol/L [facility] Creatinine [Mass/Vol] 0.8 mg/dL 0.5 - 0.9 mg/dL [facility] Est, Glom Filt Rate 88 - [facility] Comment on above: These results are not [...] 126 mg/dL High 70 - 99 mg/dL [facility] Potassium [Moles/Vol] 3.5 mmol/L Low 3.7 - 5.3 mmol/L [facility] Protein [Mass/Vol] 6.7 g/dL 6.4 - 8.3 g/dL [facility] Sodium [Moles/Vol] 138 mmol/L 135 - 144 mmol/L [facility] Urea nitrogen [Mass/Vol] 10 mg/dL 6 - 20 mg/dL [facility] Urea nitrogen/Creatinine [Mass ratio] 13 mg/mg 9 - 20 [facility] Comp Metabolic Profon 2023 Albumin [Mass/Vol] 4.4 g/dL Normal 3.5-5.2 [facility] Comment on above: Performed By: #### C DP, LIP, CP #### [facility] [address] [place], [place] [id number] Entry Level Recruiter: Ion Jasso MD Albumin/Glob Ratio 1.9 Normal 1.0-2.5 [facility] Comment on above: Performed By: #### C DP, LIP, CP #### [facility] [address] [place], [place] [phone] Entry Level Recruiter: Ion Jasso MD Alkaline Phos 123 U/L High 35-104 [facility] Comment on above: Performed By: #### C DP LIP, CP #### [facility] [address] [place], [place] [phone] Entry Level Recruiter: Ion Jasso MD ALT [Catalytic activity/Vol] 15 U/L Normal 5-33 [facility] Comment on above: Performed By: #### C DP LIP, CP #### [facility] [address] [place], [place] [id number] Entry Level Recruiter: Ion Jasso MD Anion gap [Moles/Vol] 10 mmol/L Normal 9-17 [facility] Comment on above: Performed By: #### C DP LIP, CP #### [facility] [address] [place], [place] [phone] Entry Level Recruiter: Ion Jasso MD AST [Catalytic activity/Vol] 21 U/L Normal <32 [facility] Comment on above: Performed By: #### C DP, LIP, CP #### [facility] [address] [place], [place] [phone] Entry Level Recruiter: Ion Jasso MD Bilirubin [Mass/Vol] 0.3 mg/dL Normal 0.3-1.2 [facility] Comment on above: Performed By: #### C DP, LIP, CP #### [facility] [address] [place], [place] 238[address]83 Entry Level Recruiter: Ion Jasso MD BUN/CRE Ratio 13 Normal 9-20 [facility] Comment on above: Performed By: #### C DP, LIP, CP #### [facility] [address] [place], [place] 0168083 Entry Level Recruiter: Ion Jasso MD Calcium [Mass/Vol] 10.0 mg/dL Normal 8.6-10.4 [facility] Comment on above: Performed By: #### C DP LIP, CP #### [facility] [address] [place], [place] [phone] Entry Level Recruiter: Ion Jasso MD Chloride [Moles/Vol] 104 mmol/L Normal 98-107 [facility] Comment on above: Performed By: #### C DP LIP, CP #### [address] [place], [place] [address]1883 Entry Level Recruiter: Ion Jasso MD CO2 [Moles/Vol] 24 mmol/L Normal 20-31 [facility] Comment on above: Performed By: #### C DP LIP, CP #### [facility] [address] [place], [place] [phone] Entry Level Recruiter: Ion Jasso MD Creatinine [Mass/Vol] 0.8 mg/dL Normal 0.5-0.9 [facility] Comment on above: Performed By: #### C ELMER LIP, CP #### [facility] [address] [place] [address] Entry Level Recruiter: Ion Jasso MD GFR/1.73 sq M.predicted among non-blacks MDRD (S/P/Bld) [Vol rate/Area] 88 mL/min/{1.73_m2} Normal >60 [facility] Comment on above: Result Comment: These [...] By: #### C REBECA PAYNE, CP #### [facility] [address] [place] [address] Dr[place] [address] Entry Level Recruiter: Ion Jasso MD Glucose [Mass/Vol] 126 mg/dL High 70-99 [facility] Comment on above: Performed By: #### C REBECA PAYNE, CP #### [address] [place] [address] Entry Level Recruiter: Ion Jasso MD Potassium [Moles/Vol] 3.5 mmol/L Low 3.7-5.3 [facility] Comment on above: Performed By: #### C REBECA PAYNE, CP #### [address] [place], [facility]83 Entry Level Recruiter: Ion Jasso MD Protein [Mass/Vol] 6.7 g/dL Normal 6.4-8.3 [facility] Comment on above: Performed By: #### C REBECA PAYNE, CP #### [address] [place], [facility]83 Entry Level Recruiter: Ion Jasso MD Sodium [Moles/Vol] 138 mmol/L Normal 135-144 [facility] Comment on above: Performed By: #### C REBECA PAYNE, CP #### [address] [place], [facility]83 Entry Level Recruiter: Ion Jasso MD Urea nitrogen [Mass/Vol] 10 mg/dL Normal 6-20 [facility] Comment on above: Performed By: #### C ELMER LIP, CP #### [facility] [address] [place] [address] Entry Level Recruiter: Ion Jasso MD Lipaseon 09-29-2023 Lipase [Catalytic activity/Vol] 141 U/L High 13 - 60 U/L [facility] Lipase [Catalytic activity/Vol] 141 U/L High 13-60 [facility] Comment on above: Performed By: #### C REBECA PAYNE, CP #### [facility] [address] [place], [place] [phone] Entry Level Recruiter: Ion Jasso MD Microscopic Urinalysison Bacteria LM Ql (Urine sed) TRACE Abnormal None [facility] Epithelial cells LM.HPF (Urine sed) [#/Area] 2 TO 5 [facility] Interpretation and review of laboratory results Abnormal [facility] RBC LM.HPF (Urine sed) [#/Area] 0 TO 2 [facility] WBC LM.HPF (Urine sed) [#/Area] 0 TO 2 [facility] No Panel Informationon 09-28 Interpretation and review of laboratory results Abnormal [facility] UA w/Reflex Cultureon 2023 Bilirubin, SemiQt,Ur Negative Normal NEG [facility] Comment on above: Performed By: #### C REBECA PAYNE, CP #### [facility] [address] [place] [address] Entry Level Recruiter: Ion Jasso MD Blood, Urine Negative Normal NEG [facility] Comment on above: Performed By: #### C REBECA PAYNE, CP #### [facility] [address] [place] [address] Entry Level Recruiter: Ion Jasso MD Clarity (U) Clear Normal CLEAR [facility] Comment on above: Performed By: #### C ELMER LIP, CP #### [facility] [address] [place] [address] Entry Level Recruiter: Ion Jasso MD Color (U) Yellow Normal YEL [facility] Comment on above: Performed By: #### C DP, LIP, CP #### [facility] [address] [place] [address] Entry Level Recruiter: Ion Jasso MD Glucose Ql (U) Negative Normal NEG [facility] Comment on above: Performed By: #### C DP, LIP, CP #### [facility] [address] [place] [address] Entry Level Recruiter: Ion Jasso MD Ketones Ql (U) Negative Normal NEG [facility] Comment on above: Performed By: #### C DP, LIP, CP #### [address] [place] [address] Entry Level Recruiter: Ion Jasso MD Leukocyte esterase Test strip Ql (U) Negative Normal NEG [facility] Comment on above: Performed By: #### C DP, LIP, CP #### [address] [place] [address] Entry Level Recruiter: Ion Jasso MD Nitrite,Ur Negative Normal [facility] Comment on above: Performed By: #### C DP, LIP, CP #### [facility] [address] [place] [address] [place] [address] Entry Level Recruiter: Ion Jasso MD PH,Ur 6.0 Normal 5.0-9.0 [facility] Comment on above: Performed By: #### C DP, LIP, CP #### [facility] [address] [place] [address] Entry Level Recruiter: Ion Jasso MD Protein Ql (U) Negative Normal NEG [facility] Comment on above: Performed By: #### C DP, LIP, CP #### [facility] [address] [place] [address] [place] [address] Entry Level Recruiter: Ion Jasso MD Spec. [place],Ur >1.030 High 1.010-1.02 0 [facility] Comment on above: Performed By: #### C REBECA PAYNE CP #### [facility] [address] [place] [address] [place] [address] Entry Level Recruiter: Ion Jasso MD Urobilinogen,Ur Normal Normal 0.0-1.0 [facility] Comment on above: Performed By: #### C REBECA PAYNE CP #### [facility] [address] [place] [address] [place] [address] Entry Level Recruiter: Ion Jasso MD Urinalysis with Reflex to Cu ltureon 09-29-2023 Bilirubin Ql (U) Negative NEGATIVE [facility] Clarity (U) Clear Clear [facility] Color (U) Yellow Yellow [facility] Glucose Test strip (U) [Mass/Vol] Negative NEGATIVE mg/dL [facility] Hemoglobin Auto test strip Ql (U) Negative NEGATIVE [facility] Interpretation and review of laboratory results Abnormal [facility] Ketones (U) [Mass/Vol] Negative NEGAT [place] mg/dL [facility] Leukocyte esterase Test strip Ql (U) Negative NEGATIVE [facility] Nitrite Ql (U) Negative [facility] pH (U) 6.0 [pH] 5.0 - 9.0 [facility] Protein (U) [Mass/Vol] Negative NEGAT [place] mg/dL [facility] Specific gravity (U) [Rel density] High 1.010 - 1.020 [facility] Urobilinogen Qn (U) Normal 0.0 - 1. 0 EU/dL [facility] Urinalysis,Microon 4 Bacteria TRACE Abnormal NONE [facility] Comment on above: Performed By: #### C REBECA PAYNE CP #### [facility] [address] [place] [address] [place] [address] Entry Level Recruiter: Ion Jasso MD Epithelial cells LM Ql (Urine sed) 2 TO 5 Normal 0-25 [facility] Comment on above: Performed By: #### C DP, LIP, CP #### [facility] [address] [place] [address] Entry Level Recruiter: Ion Jasso MD Urine RBC's 0 TO 2 Normal 0-2 [facility] Comment on above: Performed By: #### C DP, LIP, CP #### [facility] [address] [place] [address] Entry Level Recruiter: Ion Jasso MD Urine WBC's 0 TO 2 Normal 0-5 [facility] Comment on above: Performed By: #### C DP, LIP, CP #### [facility] [address] [place] [address] Entry Level Recruiter: Ion Jasso MD UPPER EUSon 09-08-2023 [facility] Gastroenterology Patient Name: Chioma Rainey Procedure Date: 09/08/2023 7:35 AM Date of : 1970 Admit Type: Outpatient Age: 53 Room: EUS Proc Room 01 Gender: Female Note Status: Finalized Attending MD: Sabrina Dee MD, MPH, [id number] Procedure: Upper EUS Indications: Chronic pancreatitis, Celiac [...] the (more content not included)... LAB, [facility] Radiology Study observation (narrative) [facility] Alanine aminotransferase [En zymatic activity/volume] in Serum or PlasmaOrdered By: Xiang Kellogg on 04-18-2023 ALT [Catalytic activity/Vol] 9 U/L Normal 7-52 [facility] Comment on above: Performed By: #### L IPASE, CBC, CMP, HS TROP #### [facility] [address] [place] [address] [place] Albumin [Mass/volume] in Ser um or Plasma by Bromocresol green (BCG) dye binding methoOrdered By: Xiang Kellogg on 04-18-2023 Albumin BCG dye [Mass/Vol] 4.5 g/dL 3.5-5.7 [facility] Alkaline phosphatase [Enzyma tic activity/volume] in Serum or PlasmaOrdered By: Xiang Kellogg on 04-18-2023 ALP [Catalytic activity/Vol] 107 U/L High 34-104 [facility] Comment on above: Performed By: #### L IPASE, CBC, CMP, HS TROP #### [facility] [address] [place] [address] [place] Amylase [Enzymatic activity/ volume] in Serum or PlasmaOrdered By: Xiang Kellogg on 04-18-2023 Amylase [Catalytic activity/Vol] 72 U/L Normal 29-103 [facility] Comment on above: Performed By: #### L IPASE, CBC, CMP, HS TROP #### [facility] [address] [place] [address] [place] Aspartate aminotransferase [ Enzymatic activity/volume] in Serum or PlasmaOrdered By: Xiang Kellogg on 04-18-2023 AST [Catalytic activity/Vol] 14 U/L Normal 13-39 [facility] Comment on above: Performed By: #### L IPASE, CBC, CMP, HS TROP #### [facility] [address] [place] [address] [place] Automated basophil %Ordered By: Xiang Kellogg on 04-18-2023 Basophils/100 WBC (Bld) 0.8 % Normal . [facility] Comment on above: Performed By: #### L IPASE, CBC, CMP, HS TROP #### [facility] [address] [place] [address] Automated basophil countOrde red By: Xiang Kellogg on 04-18-2023 Basophils (Bld) [#/Vol] 0.1 10*3/uL Normal 0.0-0.2 [facility] Comment on above: Result Comment: PERF ORMED BY: [place] [address] PATHOLOGIST ASSISTANT [employer] PAULA RODRIGUES M.D. Performed By: #### L IPASE, CBC, CMP, HS TROP #### [address] Automated blood monocyte cou ntOrdered By: Xiang Kellogg on 04-18-2023 Monocytes (Bld) [#/Vol] 0.6 10*3/uL Normal 0.0-0.8 [facility] Comment on above: Performed By: #### L IPASE, CBC, CMP, HS TROP #### [facility] [address] [place] [address] Automated eosinophil %Ordere d By: Xiang Kellogg on 04-18-2023 Eosinophils/100 WBC (Bld) 0.2 % Normal . [facility] Comment on above: Performed By: #### L IPASE, CBC, CMP, HS TROP #### [facility] [address] [place] [address] Automated eosinophil countOr dered By: Xiang Kellogg on 04-18-2023 Eosinophils (Bld) [#/Vol] 0.0 10*3/uL Normal 0.0-0.45 [facility] Comment on above: Performed By: #### L IPASE, CBC, CMP, HS TROP #### [facility] [address] [place] [address] Automated monocyte %Ordered By: Xiang Kellogg on 04-18-2023 Monocytes/100 WBC (Bld) 5.4 % Normal . [facility] Comment on above: Performed By: #### L IPASE, CBC, CMP, HS TROP #### [facility] [address] [place] [address] Automated neutrophil %Ordere d By: Xiang Kellogg on 04-18-2023 Neutrophils/100 WBC (Bld) 80.8 % Normal . [facility] Comment on above: Performed By: #### L IPASE, CBC, CMP, HS TROP #### [facility] [address] [place] [address] Basic Metabolic Panelon 04-09 Creatinine Clr Calc Pharmacy 64.32 Normal [facility] Comment on above: Performed By: #### L IPASE, CBC, CMP, HS TROP #### [facility] [address] [place] [address] GFR/1.73 sq M.predicted MDRD (S/P/Bld) [Vol rate/Area] mL/min/{1.73_m2} Normal [facility] Comment on above: Performed By: #### L IPASE, CBC, CMP, HS TROP #### [address] Bilirubin.direct [Mass/volum e] in Serum or PlasmaOrdered By: Xiang Kellogg on 04-18-2023 Bilirubin.direct [Mass/Vol] 0.00 mg/dL 0.03-0.18 [facility] Comment on above: If the DBIL is less than 0.1, IBIL is not able to becalculated. Bilirubin.total [Mass/volume ] in Serum or PlasmaOrdered By: Xiang Kellogg on 04-18-2023 Bilirubin [Mass/Vol] 0.3 mg/dL Normal 0.3-1.0 [facility] Comment on above: Performed By: #### L IPASE, CBC, CMP, HS TROP #### [address] abdomen pelvis wo conon 0 04-18-2023 CT abdomen pelvis wo [facility] [address] [place] [address] CT Scan Report Signed Patient: Chioma Arciniega MR#: [id number] : 1970 Acct:[id number] Age/Sex: 52 / F ADM Date: 04/18/23 Loc: ER Room: Type: [facility] ER Attending Dr: Copies to: Xiang Kellogg MD Ordering Provider: Xiang Kellogg MD Date of Service: 02/10/24 CT/CT abdomen pelvis wo con: Abdominal Pain [...] Rajeev Ulloa M.D.04/18/2023 5:07 PM Dictation Location: [facility]--13 Transcribed By: RICA 04/18/231706 Dictated By: Rajeev Ulloa II, MD 04/18/231700 Signed By: 04/18/231706 Normal [facility] Calcium [Mass/volume] in Ser um or PlasmaOrdered By: Xiang Kellogg on 04-18-2023 Calcium [Mass/Vol] 11.1 mg/dL High 8.6-10.3 [facility] Comment on above: Performed By: #### L IPASE, CBC, CMP, HS TROP #### [facility] [address] [place] [address] [place] Carbon dioxide, total [Moles /volume] in Serum or PlasmaOrdered By: Xiang Kellogg on 04-18-2023 CO2 [Moles/Vol] 30.2 mmol/L Normal 21.0-31.0 [facility] Comment on above: Performed By: #### L IPASE, CBC, CMP, HS TROP #### [place] [address] [place] Chloride [Moles/volume] in S erika or PlasmaOrdered By: Xiang Kellogg on 04-18-2023 Chloride [Moles/Vol] 103 mmol/L Normal 98-107 [facility] Comment on above: Performed By: #### L IPASE, CBC, CMP, HS TROP #### [address] Complete Blood Count Auto Di ffon 04-18-2023 Mean Corpuscular HGB Conc 34.3 g/dL Normal 32.0-35.0 [facility] Comment on above: Performed By: #### L IPASE, CBC, CMP, HS TROP #### [place] [address] [place] Monocytes/100 WBC (Bld) 16.25 % Normal 0.00-20.00 [facility] Comment on above: Performed By: #### L IPASE, CBC, CMP, HS TROP #### [facility] [address] [place] [address] [place] NRBC% 0.0 /100{WBC} Normal 0-0.5 [facility] Comment on above: Performed By: #### L IPASE, CBC, CMP, HS TROP #### [place] [address] [place] Creatinine [Mass/volume] in Serum or PlasmaOrdered By: Xiang Kellogg on 04-18-2023 Creatinine [Mass/Vol] 0.80 mg/dL Normal 0.60-1.[address] [facility] Comment on above: Performed By: #### L IPASE, CBC, CMP, HS TROP #### [facility] [address] Erythrocyte distribution wid th [Ratio] by Automated countOrdered By: Xiang Kellogg on 04-18-2023 Erythrocyte distribution width (RBC) [Ratio] 13.4 % Normal 11.9-15.3 [facility] Comment on above: Performed By: #### L IPASE, CBC, CMP, HS TROP #### [facility] [address] [place] [address] [place] Erythrocytes [#/volume] in B lood by Automated countOrdered By: Xiang Kellogg on 04-18-2023 RBC (Bld) [#/Vol] 4.35 10*6/uL Normal 3.60-5.00 [facility] Comment on above: Performed By: #### L IPASE, CBC, CMP, HS TROP #### [facility] [address] [place] [address] Ethanol [Mass/volume] in Ser um or PlasmaOrdered By: Xiang Kellogg on 04-18-2023 Ethanol [Mass/Vol] mg/dL Normal [facility] Comment on above: Performed By: #### L IPASE, CBC, CMP, HS TROP #### [facility] [address] [place] [address] Ethanol [Mass/Vol] TNP [facility] Comment on above: Test not performed Ethyl Alcohol Profileon 04-09 Percent Ethanol Not performed Normal [facility] Comment on above: Result Comment: PERF ORMED BY: [place] [address] PATHOLOGIST ASSISTANT STORE MANAGER OPERATIONS PAULA RODRIGUES M.D. Performed By: #### L IPASE, CBC, CMP, HS TROP #### [facility] [address] [place] [address] [place] Glucose [Mass/volume] in Ser um or PlasmaOrdered By: Xiang Kellogg on 04-18-2023 Glucose [Mass/Vol] 108 mg/dL High 70-100 [facility] Comment on above: ADA recommended refe rence rangeRandom Glucose Reference Range is dependent on time and content of last meal. Glucose of more than 200 mg/dL in a nonstressed, ambulatory subject supports the diagnosis of Diabetes Mellitus. Result Comment: [place] Glucose Reference Range is dependent on time and content of last meal. Glucose of more than 200 mg/dL in a nonstressed, ambulatory subject supports the diagnosis of Diabetes Mellitus. ADA recommended reference range Performed By: #### L IPASE, CBC, CMP, HS TROP #### [address] Hematocrit [Volume Fraction] of Blood by Automated countOrdered By: Xiang Kellogg on 04-18-2023 Hematocrit (Bld) [Volume fraction] 41.6 % Normal 34.0-46.4 [facility] Comment on above: Performed By: #### L IPASE, CBC, CMP, HS TROP #### [address] Hemoglobin [Mass/volume] in BloodOrdered By: Xiang Kellogg on 04-18-2023 Hemoglobin (Bld) [Mass/Vol] 14.3 g/dL Normal 11.8-15.4 [facility] Comment on above: Performed By: #### L IPASE, CBC, CMP, HS TROP #### [address] Hepatic Panelon 04-18-2023 Albumin [Mass/Vol] 4.5 g/dL Normal 3.5-5.7 [facility] Comment on above: Performed By: #### L IPASE, CBC, CMP, HS TROP #### [address] Bilirubin,Indirect 0.3 mg/dL Normal [facility] Comment on above: Performed By: #### L IPASE, CBC, CMP, HS TROP #### [address] Bilirubin.indirect [Mass/Vol] 0.00 mg/dL Low 0.03-0.18 [facility] Comment on above: Result Comment: If t he DBIL is less than 0.1, IBIL is not able to be calculated. Performed By: #### L IPASE, CBC, CMP, HS TROP #### [facility] [address] [place] [address] [place] Leukocytes [#/volume] correc aurelia for nucleated erythrocytes in Blood by Automated counOrdered By: Xiang Kellogg on 04-18-2023 WBC corrected for nucl RBC Auto (Bld) [#/Vol] 12.1 10*3/uL 3.8-11.6 [facility] Leukocytes [#/volume] in Blo od by Automated countOrdered By: Xiang Kellogg on 04-18-2023 WBC (Bld) [#/Vol] 12.1 10*3/uL High 3.8-11.6 [facility] Comment on above: Performed By: #### L IPASE, CBC, CMP, HS TROP #### [address] Lipase [Enzymatic activity/v olume] in Serum or PlasmaOrdered By: Xiang Kellogg on 04-18-2023 Lipase [Catalytic activity/Vol] 47.0 U/L Normal 11.0-82.0 [facility] Comment on above: Result Comment: PERF ORMED BY: [place] [address] PATHOLOGIST ASSISTANT STORE MANAGER OPERATIONS PAULA RODRIGUES M.D. Performed By: #### L IPASE, CBC, CMP, HS TROP #### [place] [address] [place] Lymphocytes [#/volume] in Bl ood by Automated countOrdered By: Xiang Kellogg on 04-18-2023 Lymphocytes (Bld) [#/Vol] 1.6 10*3/uL Normal 1.00-4.8 [facility] Comment on above: Performed By: #### L IPASE, CBC, CMP, HS TROP #### [facility] [address] [place] [address] [place] Lymphocytes/100 leukocytes i n Blood by Automated countOrdered By: Xiang Kellogg on 04-18-2023 Lymphocytes/100 WBC (Bld) 12.8 % Normal . [facility] Comment on above: Performed By: #### L IPASE, CBC, CMP, HS TROP #### [facility] [address] MCH [Entitic mass] by Automa aurelia countOrdered By: Xiang Kellogg on 04-18-2023 MCH (RBC) [Entitic mass] 32.7 pg Normal 24.7-34.3 [facility] Comment on above: Performed By: #### L IPASE, CBC, CMP, HS TROP #### [facility] [address] [place] [address] MCHC Auto (RBC) [Mass/Vol]Or dered By: Xiagn Kellogg on 04-18-2023 MCHC (RBC) [Mass/Vol] 34.3 g/dL 32.0-35.[address] [facility] MCV [Entitic volume] by Auto mated countOrdered By: Xiang Kellogg on 04-18-2023 MCV (RBC) [Entitic vol] 95.5 fL Normal 80-100 [facility] Comment on above: Performed By: #### L IPASE, CBC, CMP, HS TROP #### [facility] [address] [place] [address] Monocyte distribution width [Entitic volume] in Blood by AutomatedOrdered By: Xiang Kellogg on 04-18-2023 Monocyte distribution width Auto (Bld) [Entitic vol] 16.25 % 0.00-20.00 [facility] Neutrophils [#/volume] in Bl ood by Automated countOrdered By: Xiang Kellogg on 04-18-2023 Neutrophils (Bld) [#/Vol] 9.8 10*3/uL High 1.8-7.7 [facility] Comment on above: Performed By: #### L IPASE, CBC, CMP, HS TROP #### [facility] [address] [place] [address] No Panel InformationOrdered By: Xiang Kellogg on 04-18-2023 Estimated GFR (CKD-EPI) > 60.0 mL/Min [facility] Creatinine Clearance (Chem 64.32 [facility] Nucleated erythrocytes [Pres ence] in Blood by Automated countOrdered By: Xiang Kellogg on 04-18-2023 Nucleated RBC Auto Ql (Bld) 0.0 /100{WBC} 0-0.5 [facility] Platelet mean volume [Entiti c volume] in Blood by Automated countOrdered By: Xiang Kellogg on 04-18-2023 Platelet mean volume (Bld) [Entitic vol] 8.1 fL Normal 6.3-10.7 [facility] Comment on above: Performed By: #### L IPASE, CBC, CMP, HS TROP #### [facility] [address] Platelets [#/volume] in Bloo d by Automated countOrdered By: Xiang Kellogg on 04-18-2023 Platelets (Bld) [#/Vol] 227 10*3/uL Normal 150-450 [facility] Comment on above: Performed By: #### L IPASE, CBC, CMP, HS TROP #### [address] Potassium [Moles/volume] in Serum or PlasmaOrdered By: Xiang Kellogg on 04-18-2023 Potassium [Moles/Vol] 3.2 mmol/L Low 3.5-5.[address] [facility] Comment on above: Performed By: #### L IPASE, CBC, CMP, HS TROP #### [facility] [address] [place] [address] Protein [Mass/volume] in Ser um or PlasmaOrdered By: Xiang Kellogg on 04-18-2023 Protein [Mass/Vol] 6.7 g/dL Normal 6.4-8.9 [facility] Comment on above: Performed By: #### L IPASE, CBC, CMP, HS TROP #### [facility] [address] [place] [address] Serum globulin measurement b y calculation (mass/volume)Ordered By: Xiang Kellogg on 04-18-2023 Globulin (S) [Mass/Vol] 2.2 g/dL [facility] Comment on above: Performed By: #### L IPASE, CBC, CMP, HS TROP #### [facility] [address] [place] [address] Serum or plasma albumin/glob ulin mass ratioOrdered By: Xiang Kellogg on 04-18-2023 Albumin/Globulin [Mass ratio] 2.0 {ratio} Normal [facility] Comment on above: Performed By: #### L IPASE, CBC, CMP, HS TROP #### [facility] [address] [place] [address] Serum or plasma anion gap de terminationOrdered By: Xiang Kellogg on 04-18-2023 Anion gap [Moles/Vol] 10.0 mmol/L Normal 6.0-15.0 [facility] Comment on above: Performed By: #### L IPASE, CBC, CMP, HS TROP #### [facility] [address] [place] [address] Serum or plasma non-glucuron idated bilirubin measurement (mass/volume)Ordered By: Xiang Kellogg on 04-18-2023 Bilirubin.indirect [Mass/Vol] 0.3 mg/dL [facility] Sodium [Moles/volume] in Ser um or PlasmaOrdered By: Xiang Kellogg on 04-18-2023 Sodium [Moles/Vol] 140 mmol/L Normal 136-145 [facility] Comment on above: Performed By: #### L IPASE, CBC, CMP, HS TROP #### [facility] [address] [place] [address] Urea nitrogen [Mass/volume] in Serum or PlasmaOrdered By: Xiang Kellogg on 04-18-2023 Urea nitrogen [Mass/Vol] 7 mg/dL Normal 7-25 [facility] Comment on above: Performed By: #### L IPASE, CBC, CMP, HS TROP #### [facility] [address] [place] [address] CT abdomen pelvis w conon CT abdomen pelvis w con [facility] [place] [address] CT Scan Report Signed Patient: Chioma Arciniega MR#: [id number] : 1970 Acct:[id number] Age/Sex: 52 / F ADM Date: 04/11/23 Loc: ER Room: Type: [facility] ER Attending Dr: Copies to: Rivera Lopez [...] Nai Salazar M.D.04/12/2023 9:01 AM Dictation Location: [place] [address] Transcribed By: [facility] 04/12/23 0901 Dictated By: Nai Salazar MD 04/12/23 0856 Signed By: 04/12/23 0901 Normal [facility] Activated partial thrombopla stin time (aPTT) in platelet poor plasma by coagulation aOrdered By: Rivera Lopez on 04-11-2023 aPTT Coag (PPP) [Time] 23.3 s 25.1-36.5 [facility] Comment on above: A hematocrit value g reater than 55% may lead to inaccurate results in coagulation testing. Patients having hematocrit values >55% require a special collection tube for coagulation studies. Please contact the laboratory at [phone] for redraw instructions. Alanine aminotransferase [En zymatic activity/volume] in Serum or PlasmaOrdered By: Rivera Lopez on 04-11-2023 ALT [Catalytic activity/Vol] 13 U/L Normal 7-52 [facility] Comment on above: Performed By: #### L IPASE, CBC, CMP, HS TROP #### [facility] [address] [place] [address] [place] Albumin [Mass/volume] in Ser um or Plasma by Bromocresol green (BCG) dye binding methoOrdered By: Rivera Lopez on 04-11-2023 Albumin BCG dye [Mass/Vol] 4.5 g/dL 3.5-5.7 [facility] Alkaline phosphatase [Enzyma tic activity/volume] in Serum or PlasmaOrdered By: Rivera Lopez on 04-11-2023 ALP [Catalytic activity/Vol] 111 U/L High 34-104 [facility] Comment on above: Performed By: #### L IPASE, CBC, CMP, HS TROP #### [facility] [address] [place] [address] Aspartate aminotransferase [ Enzymatic activity/volume] in Serum or PlasmaOrdered By: Rivera Lopez on 04-11-2023 AST [Catalytic activity/Vol] 17 U/L Normal 13-39 [facility] Comment on above: Performed By: #### L IPASE, CBC, CMP, HS TROP #### [facility] [address] [place] [address] Automated basophil %Ordered By: Rivera Lopez on 04-11-2023 Basophils/100 WBC (Bld) 0.4 % Normal . [facility] Comment on above: Performed By: #### L IPASE, CBC, CMP, HS TROP #### [facility] [address] [place] [address] Automated basophil countOrde red By: Rivera Lopez on 04-11-2023 Basophils (Bld) [#/Vol] 0.1 10*3/uL Normal 0.0-0.2 [facility] Comment on above: Result Comment: PERF ORMED BY: [place] [address] PATHOLOGIST ASSISTANT STORE MANAGER OPERATIONS PAULA RODRIGUES M.D. Performed By: #### L IPASE, CBC, CMP, HS TROP #### [address] Automated blood monocyte cou ntOrdered By: Rivera Lopez on 04-11-2023 Monocytes (Bld) [#/Vol] 0.6 10*3/uL Normal 0.0-0.8 [facility] Comment on above: Performed By: #### L IPASE, CBC, CMP, HS TROP #### [address] Automated eosinophil %Ordere d By: Rivera Lopez on 04-11-2023 Eosinophils/100 WBC (Bld) 0.0 % Normal . [facility] Comment on above: Performed By: #### L IPASE, CBC, CMP, HS TROP #### [address] Automated eosinophil countOr dered By: Rivera Lopez on 04-11-2023 Eosinophils (Bld) [#/Vol] 0.0 10*3/uL Normal 0.0-0.45 [facility] Comment on above: Performed By: #### L IPASE, CBC, CMP, HS TROP #### [address] Automated erythrocytes count in urine sediment (number/area)Ordered By: Rivera Lopez on 04-11-2023 RBC Auto (Urine sed) [#/Area] 0-1 [HPF] 0-4 [facility] Automated leukocytes count i n urine sediment (number/area)Ordered By: Rivera Lopez on 04-11-2023 WBC Auto (Urine sed) [#/Area] 3-4 [HPF] 0-4 [facility] Automated monocyte %Ordered By: Rivera Lopez on 04-11-2023 Monocytes/100 WBC (Bld) 4.3 % Normal . [facility] Comment on above: Performed By: #### L IPASE, CBC, CMP, HS TROP #### [facility] [address] Automated neutrophil %Ordere d By: Rivera Lopez on 04-11-2023 Neutrophils/100 WBC (Bld) 87.2 % Normal . [facility] Comment on above: Performed By: #### L IPASE, CBC, CMP, HS TROP #### [address] Automated urine color determ inationOrdered By: Rivera Lopez on 04-11-2023 Color (U) Yellow Normal Yellow [facility] Comment on above: Order Comment: Name Collection Type:: Clean-Voided Midstream Performed By: #### L IPASE, CBC, CMP, HS TROP #### [address] Basic Metabolic Panelon Creatinine Clr Calc Pharmacy 59.83 Normal [facility] Comment on above: Performed By: #### L IPASE, CBC, CMP, HS TROP #### [address] GFR/1.73 sq M.predicted MDRD (S/P/Bld) [Vol rate/Area] mL/min/{1.73_m2} Normal [facility] Comment on above: Performed By: #### L IPASE, CBC, CMP, HS TROP #### [address] Bilirubin Test strip Ql (U)O rdered By: Rivera Lopez on 04-11-2023 Bilirubin Ql (U) Negative Negative [facility] Bilirubin.direct [Mass/volum e] in Serum or PlasmaOrdered By: Rivera Lopez on 04-11-2023 Bilirubin.direct [Mass/Vol] 0.00 mg/dL 0.03-0.18 [facility] Comment on above: If the DBIL is less than 0.1, IBIL is not able to becalculated. Bilirubin.total [Mass/volume ] in Serum or PlasmaOrdered By: Rivera Lopez on 04-11-2023 Bilirubin [Mass/Vol] 0.3 mg/dL Normal 0.3-1.0 [facility] Comment on above: Performed By: #### L IPASE, CBC, CMP, HS TROP #### [address] Calcium [Mass/volume] in Ser um or PlasmaOrdered By: Rivera Lopez on 04-11-2023 Calcium [Mass/Vol] 10.3 mg/dL Normal 8.6-10.3 [facility] Comment on above: Performed By: #### L IPASE, CBC, CMP, HS TROP #### [address] Carbon dioxide, total [Moles /volume] in Serum or PlasmaOrdered By: Rivera Lopez on 04-11-2023 CO2 [Moles/Vol] 26.9 mmol/L Normal 21.0-31.0 [facility] Comment on above: Performed By: #### L IPASE, CBC, CMP, HS TROP #### [address] Chloride [Moles/volume] in S erika or PlasmaOrdered By: Rivera Lopez on 04-11-2023 Chloride [Moles/Vol] 103 mmol/L Normal 98-107 [facility] Comment on above: Performed By: #### L IPASE, CBC, CMP, HS TROP #### [address] Complete Blood Count Auto Di ffon 04-11-2023 Mean Corpuscular HGB Conc 33.2 g/dL Normal 32.0-35.0 [facility] Comment on above: Performed By: #### L IPASE, CBC, CMP, HS TROP #### [place] [address] [place] Monocytes/100 WBC (Bld) 17.01 % Normal 0.00-20.00 [facility] Comment on above: Performed By: #### L IPASE, CBC, CMP, HS TROP #### [place] [address] [place] NRBC% 0.0 /100{WBC} Normal 0-0.5 [facility] Comment on above: Performed By: #### L IPASE, CBC, CMP, HS TROP #### [address] Creatinine [Mass/volume] in Serum or PlasmaOrdered By: Rivera Lopez on 04-11-2023 Creatinine [Mass/Vol] 0.86 mg/dL Normal 0.60-1.[address] [facility] Comment on above: Performed By: #### L IPASE, CBC, CMP, HS TROP #### [place] [address] [place] Dipstick and Microscopicon 0 04-11-2023 Appearance (U) Turbid Critically abnormal Clear [facility] Comment on above: Order Comment: Name Collection Type:: Clean-Voided Midstream Performed By: #### L IPASE, CBC, CMP, HS TROP #### [place] [address] [place] Bacteria,Urine None Seen Normal None Seen [facility] Comment on above: Order Comment: Name Collection Type:: Clean-Voided Midstream Performed By: #### L IPASE, CBC, CMP, HS TROP #### [place] [address] [place] Bilirubin,Urine Negative Normal Negative [facility] Comment on above: Order Comment: Name Collection Type:: Clean-Voided Midstream Performed By: #### L IPASE, CBC, CMP, HS TROP #### [place] [address] [place] Glucose Ql (U) Normal Normal Normal [facility] Comment on above: Order Comment: Name Collection Type:: Clean-Voided Midstream Performed By: #### L IPASE, CBC, CMP, HS TROP #### [place] [address] [place] Hyaline Casts,Urine None Seen Normal 0-8 [facility] Comment on above: Order Comment: Name Collection Type:: Clean-Voided Midstream Result Comment: PERF ORMED BY: [address] [place] [address] PATHOLOGIST ASSISTANT STORE MANAGER OPERATIONS PAULA RODRIGUES M.D. Performed By: #### L IPASE, CBC, CMP, HS TROP #### [address] Ketones Ql (U) Negative Normal Negative [facility] Comment on above: Order Comment: Name Collection Type:: Clean-Voided Midstream Performed By: #### L IPASE, CBC, CMP, HS TROP #### [address] Leukocyte esterase Test strip Ql (U) Negative Normal Negative [facility] Comment on above: Order Comment: Name Collection Type:: Clean-Voided Midstream Performed By: #### L IPASE, CBC, CMP, HS TROP #### [place] [address] [place] Nitrite,Urine Negative Normal Negative [facility] Comment on above: Order Comment: Name Collection Type:: Clean-Voided Midstream Performed By: #### L IPASE, CBC, CMP, HS TROP #### [address] Occult Blood,Urine Negative Normal Negative [facility] Comment on above: Order Comment: Name Collection Type:: Clean-Voided Midstream Result Comment: PERF ORMED BY: [place] [address] PATHOLOGIST ASSISTANT STORE MANAGER OPERATIONS PAULA RODRIGUES M.D. Performed By: #### L IPASE, CBC, CMP, HS TROP #### [address] Protein,Urine Negative Normal Negative [facility] Comment on above: Order Comment: Name Collection Type:: Clean-Voided Midstream Performed By: #### L IPASE, CBC, CMP, HS TROP #### [address] RBC LM.HPF (Urine sed) [#/Area] 0 /[HPF] Normal 0-4 [facility] Comment on above: Order Comment: Name Collection Type:: Clean-Voided Midstream Performed By: #### L IPASE, CBC, CMP, HS TROP #### [address] Specificy [place],Urine > 1.050 High 1.001-1.03 0 [facility] Comment on above: Order Comment: Name Collection Type:: Clean-Voided Midstream Performed By: #### L IPASE, CBC, CMP, HS TROP #### [address] Squamous Epithelial Cell,Urine 0-1 Normal 0-2 [facility] Comment on above: Order Comment: Name Collection Type:: Clean-Voided Midstream Performed By: #### L IPASE, CBC, CMP, HS TROP #### [address] Urobilinogen,Urine Normal Normal Normal [facility] Comment on above: Order Comment: Name Collection Type:: Clean-Voided Midstream Performed By: #### L IPASE, CBC, CMP, HS TROP #### [address] WBC,Urine 3-4 Normal 0-4 [facility] Comment on above: Order Comment: Name Collection Type:: Clean-Voided Midstream Performed By: #### L IPASE, CBC, CMP, HS TROP #### [address] ECG 12 lead ECGon 04-11-2023 ECG 12 lead ECG [facility] [place] [address] [place] [address] Electrocardiograph Report Signed Patient: Chioma Arciniega MR#: [id number] : 1970 Acct:[id number] Age/Sex: 52 / F ADM Date: 04/11/23 Loc: ER Room: Type: [facility] ER Attending Dr: Ordering Provider: Rivera [...] was found Confirmed by Rivera Lopez DO ([id number]) on 04/12/2023 12:05:50 AM Referred By: Electronically Signed By:Rivera Lopez DO Transcribed By: MUS Signed By Rivera Lopez DO 4 0005 Normal [facility] Erythrocyte distribution wid th [Ratio] by Automated countOrdered By: Rivera Lopez on 04-11-2023 Erythrocyte distribution width (RBC) [Ratio] 13.6 % Normal 11.9-15.3 [facility] Comment on above: Performed By: #### L IPASE, CBC, CMP, HS TROP #### [facility] [address] [place] [address] Erythrocytes [#/volume] in B lood by Automated countOrdered By: Rivera Lopez on 04-11-2023 RBC (Bld) [#/Vol] 4.27 10*6/uL Normal 3.60-5.00 [facility] Comment on above: Performed By: #### L IPASE, CBC, CMP, HS TROP #### [facility] [address] [place] [address] [place] Glucose [Mass/volume] in Ser um or PlasmaOrdered By: Rivera Lopez on 04-11-2023 Glucose [Mass/Vol] 121 mg/dL High 70-100 [facility] Comment on above: ADA recommended refe rence rangeRandom Glucose Reference Range is dependent on time and content of last meal. Glucose of more than 200 mg/dL in a nonstressed, ambulatory subject supports the diagnosis of Diabetes Mellitus. Result Comment: [place] om Glucose Reference Range is dependent on time and content of last meal. Glucose of more than 200 mg/dL in a nonstressed, ambulatory subject supports the diagnosis of Diabetes Mellitus. ADA recommended reference range Performed By: #### L IPASE, CBC, CMP, HS TROP #### [facility] [address] [place] [id number] [place] Hematocrit [Volume Fraction] of Blood by Automated countOrdered By: Rivera Lopez on 04-11-2023 Hematocrit (Bld) [Volume fraction] 41.3 % Normal 34.0-46.4 [facility] Comment on above: Performed By: #### L IPASE, CBC, CMP, HS TROP #### [facility] [address] Hemoglobin [Mass/volume] in BloodOrdered By: Rivera Lopez on 04-11-2023 Hemoglobin (Bld) [Mass/Vol] 13.7 g/dL Normal 11.8-15.4 [facility] Comment on above: Performed By: #### L IPASE, CBC, CMP, HS TROP #### [facility] [address] Hepatic Panelon 04-11-2023 Albumin [Mass/Vol] 4.5 g/dL Normal 3.5-5.7 [facility] Comment on above: Performed By: #### L IPASE, CBC, CMP, HS TROP #### [address] Bilirubin,Indirect 0.3 mg/dL Normal [facility] Comment on above: Performed By: #### L IPASE, CBC, CMP, HS TROP #### [address] Bilirubin.indirect [Mass/Vol] 0.00 mg/dL Low 0.03-0.18 [facility] Comment on above: Result Comment: If t he DBIL is less than 0.1, IBIL is not able to be calculated. Performed By: #### L IPASE, CBC, CMP, HS TROP #### [address] INR in Platelet poor plasma by Coagulation assayOrdered By: Rivera Lopez on 04-11-2023 INR Coag (PPP) [Relative time] 1.0 {INR} Normal [facility] Comment on above: INR Therapeutic [...] L IPASE, CBC, CMP, HS TROP #### [facility] [address] Ketones Auto test strip (U) [Mass/Vol]Ordered By: Rivera Lopez on 04-11-2023 Ketones (U) [Mass/Vol] Negative Negative [facility] Laboratory - UrinalysisOrder ed By: Rivera Lopez on 04-11-2023 Hyaline casts LM Ql (Urine sed) None seen [LPF] 0-8 [facility] Leukocytes [#/volume] correc aurelia for nucleated erythrocytes in Blood by Automated counOrdered By: Rivera Lopez on 04-11-2023 WBC corrected for nucl RBC Auto (Bld) [#/Vol] 13.9 10*3/uL 3.8-11.6 [facility] Leukocytes [#/volume] in Blo od by Automated countOrdered By: Rivera Lopez on 04-11-2023 WBC (Bld) [#/Vol] 13.9 10*3/uL High 3.8-11.6 [facility] Comment on above: Performed By: #### L IPASE, CBC, CMP, HS TROP #### [facility] [address] [place] [address] [place] Lipase [Enzymatic activity/v olume] in Serum or PlasmaOrdered By: Rivera Lopez on 04-11-2023 Lipase [Catalytic activity/Vol] 26.0 U/L Normal 11.0-82.0 [facility] Comment on above: Result Comment: PERF ORMED BY: [facility] [address] [place] [address] PATHOLOGIST ASSISTANT STORE MANAGER OPERATIONS PAULA RODRIGUES M.D. Performed By: #### L IPASE, CBC, CMP, HS TROP #### [address] Lymphocytes [#/volume] in Bl ood by Automated countOrdered By: Rivera Lopez on 04-11-2023 Lymphocytes (Bld) [#/Vol] 1.1 10*3/uL Normal 1.00-4.8 [facility] Comment on above: Performed By: #### L IPASE, CBC, CMP, HS TROP #### [place] [address] [place] Lymphocytes/100 leukocytes i n Blood by Automated countOrdered By: Rivera Lopez on 04-11-2023 Lymphocytes/100 WBC (Bld) 8.1 % Normal . [facility] Comment on above: Performed By: #### L IPASE, CBC, CMP, HS TROP #### [address] MCH [Entitic mass] by Automa aurelia countOrdered By: Rivera Lopez on 04-11-2023 MCH (RBC) [Entitic mass] 32.2 pg Normal 24.7-34.3 [facility] Comment on above: Performed By: #### L IPASE, CBC, CMP, HS TROP #### [address] MCHC Auto (RBC) [Mass/Vol]Or dered By: Rivera Lopez on 04-11-2023 MCHC (RBC) [Mass/Vol] 33.2 g/dL 32.0-35.[address] [facility] MCV [Entitic volume] by Auto mated countOrdered By: Rivera Lopez on 04-11-2023 MCV (RBC) [Entitic vol] 96.8 fL Normal 80-100 [facility] Comment on above: Performed By: #### L IPASE, CBC, CMP, HS TROP #### [place] [address] [place] Monocyte distribution width [Entitic volume] in Blood by AutomatedOrdered By: Rivera Lopez on 04-11-2023 Monocyte distribution width Auto (Bld) [Entitic vol] 17.01 % 0.00-20.00 [facility] Neutrophils [#/volume] in Bl ood by Automated countOrdered By: Rivera Lopez on 04-11-2023 Neutrophils (Bld) [#/Vol] 12.1 10*3/uL High 1.8-7.7 [facility] Comment on above: Performed By: #### L IPASE, CBC, CMP, HS TROP #### [facility] [address] Nitrite Test strip Ql (U)Ord ered By: Rivera Lopez on 04-11-2023 Nitrite Ql (U) Negative Negative [facility] No Panel InformationOrdered By: Rivera Lopez on 04-11-2023 Estimated GFR (CKD-EPI) > 60.0 mL/Min [facility] Creatinine Clearance (Chem 59.83 [facility] Nucleated erythrocytes [Pres ence] in Blood by Automated countOrdered By: Rivera Lopez on 04-11-2023 Nucleated RBC Auto Ql (Bld) 0.0 /100{WBC} 0-0.5 [facility] Partial Thromboplastin Timeo n 04-11-2023 aPTT Coag (Bld) [Time] 23.3 s Low 25.1-36.5 [facility] Comment on above: Result Comment: A he matocrit value greater than 55% may lead to inaccurate results in coagulation testing. Patients having hematocrit values >55% require a special collection tube for coagulation studies. Please contact the laboratory at [phone] for redraw instructions. PERFORMED BY: [place] [address] PATHOLOGIST ASSISTANT STORE MANAGER OPERATIONS PAULA RODRIGUES M.D. Performed By: #### L IPASE, CBC, CMP, HS TROP #### [facility] [address] Platelet mean volume [Entiti c volume] in Blood by Automated countOrdered By: Rivera Lopez on 04-11-2023 Platelet mean volume (Bld) [Entitic vol] 7.7 fL Normal 6.3-10.7 [facility] Comment on above: Performed By: #### L IPASE, CBC, CMP, HS TROP #### [facility] [address] Platelets [#/volume] in Bloo d by Automated countOrdered By: Rivera Lopez on 04-11-2023 Platelets (Bld) [#/Vol] 262 10*3/uL Normal 150-450 [facility] Comment on above: Performed By: #### L IPASE, CBC, CMP, HS TROP #### [facility] [address] [place] [address] Potassium [Moles/volume] in Serum or PlasmaOrdered By: Rivera Lopez on 04-11-2023 Potassium [Moles/Vol] 4.0 mmol/L Normal 3.5-5.[address] [facility] Comment on above: Performed By: #### L IPASE, CBC, CMP, HS TROP #### [facility] [address] [place] [address] Protein Auto test strip (U) [Mass/Vol]Ordered By: Rivera Lopez on 04-11-2023 Protein (U) [Mass/Vol] Negative Negative [facility] Protein [Mass/volume] in Ser um or PlasmaOrdered By: Rivera Lopez on 04-11-2023 Protein [Mass/Vol] 6.9 g/dL Normal 6.4-8.9 [facility] Comment on above: Performed By: #### L IPASE, CBC, CMP, HS TROP #### [address] Prothrombin time (PT)Ordered By: Rivera Lopez on 04-11-2023 PT Coag (PPP) [Time] 11.2 s Normal 9.0-12.9 [facility] Comment on above: A hematocrit value g reater than 55% may lead to inaccurate results in coagulation testing. Patients having hematocrit values >55% require a special collection tube for coagulation studies. Please contact the laboratory at [phone] for redraw instructions. Result Comment: A he matocrit value greater than 55% may lead to inaccurate results in coagulation testing. Patients having hematocrit values >55% require a special collection tube for coagulation studies. Please contact the laboratory at [phone] for redraw instructions. Performed By: #### L IPASE, CBC, CMP, HS TROP #### [address] Serum globulin measurement b y calculation (mass/volume)Ordered By: Rivera Lopez on 04-11-2023 Globulin (S) [Mass/Vol] 2.4 g/dL [facility] Comment on above: Performed By: #### L IPASE, CBC, CMP, HS TROP #### [address] Serum or plasma albumin/glob ulin mass ratioOrdered By: Rivera Lopez on 04-11-2023 Albumin/Globulin [Mass ratio] 1.9 {ratio} [facility] Comment on above: Performed By: #### L IPASE, CBC, CMP, HS TROP #### [address] Serum or plasma anion gap de terminationOrdered By: Rivera Lopez on 04-11-2023 Anion gap [Moles/Vol] 14.1 mmol/L Normal 6.0-15.0 [facility] Comment on above: Performed By: #### L IPASE, CBC, CMP, HS TROP #### [address] Serum or plasma non-glucuron idated bilirubin measurement (mass/volume)Ordered By: Rivera Lopez on 04-11-2023 Bilirubin.indirect [Mass/Vol] 0.3 mg/dL [facility] Sodium [Moles/volume] in Ser um or PlasmaOrdered By: Rivera Lopez on 04-11-2023 Sodium [Moles/Vol] 140 mmol/L Normal 136-145 [facility] Comment on above: Performed By: #### L IPASE, CBC, CMP, HS TROP #### [address] Specific gravity Auto test s trip (U) [Rel density]Ordered By: Rivera Lopez on 04-11-2023 Specific gravity (U) [Rel density] > 1.050 1.001-1.03 0 [facility] Squamous epithelial cells de tection in urine sediment by light microscopyOrdered By: Rivera Lopez on 04-11-2023 Epithelial cells.squamous LM Ql (Urine sed) 0-1 [HPF] 0-2 [facility] Urea nitrogen [Mass/volume] in Serum or PlasmaOrdered By: Rivera Lopez on 04-11-2023 Urea nitrogen [Mass/Vol] 5 mg/dL Low 7-25 [facility] Comment on above: Performed By: #### L IPASE, CBC, CMP, HS TROP #### [facility] [address] Urine bacteria detection by automated methodOrdered By: Rivera Lopez on 04-11-2023 Bacteria Auto Ql (U) None seen None Seen [facility] Urine clarity by refractomet ry automatedOrdered By: Rivera Lopez on 04-11-2023 Clarity Refractometry automated (U) Turbid Clear [facility] Urine glucose measurement by automated test strip (mass/volume)Ordered By: Rivera Lopez on 04-11-2023 Glucose Auto test strip (U) [Mass/Vol] Normal mg/dL Normal [facility] Urine hemoglobin detection b y automated test stripOrdered By: Rivera Lopez on 04-11-2023 Hemoglobin Auto test strip Ql (U) Negative Negative [facility] Urine leukocyte esterase det ection by automated test stripOrdered By: Rivera Lopez on 04-11-2023 Leukocyte esterase Auto test strip Ql (U) Negative Negative [facility] Urine pH measurement by auto mated test stripOrdered By: Rivera Lopez on 04-11-2023 pH (U) 8.0 [pH] Normal 5.0-9.0 [facility] Comment on above: Order Comment: Name Collection Type:: Clean-Voided Midstream Performed By: #### L IPASE, CBC, CMP, HS TROP #### [facility] [address] [place] [address] [place] Urobilinogen Auto test strip (U) [Mass/Vol]Ordered By: Rivera Lopez on 04-11-2023 Urobilinogen (U) [Mass/Vol] Normal mg/dL Normal [facility] Alanine aminotransferase [En zymatic activity/volume] in Serum or PlasmaOrdered By: Nicole Posadas on 04-02-2023 ALT [Catalytic activity/Vol] 11 U/L Normal 7-52 [facility] Comment on above: Performed By: #### L IPASE, CBC, CMP, HS TROP #### [facility] [address] Albumin [Mass/volume] in Ser um or Plasma by Bromocresol green (BCG) dye binding methoOrdered By: Nicole Posadas on 04-02-2023 Albumin BCG dye [Mass/Vol] 4.2 g/dL 3.5-5.7 [facility] Alkaline phosphatase [Enzyma tic activity/volume] in Serum or PlasmaOrdered By: Nicole Posadas on 04-02-2023 ALP [Catalytic activity/Vol] 101 U/L Normal 34-104 [facility] Comment on above: Performed By: #### L IPASE, CBC, CMP, HS TROP #### [facility] [address] [place] [address] [place] Aspartate aminotransferase [ Enzymatic activity/volume] in Serum or PlasmaOrdered By: Nicole Posadas on 04-02-2023 AST [Catalytic activity/Vol] 21 U/L Normal 13-39 [facility] Comment on above: Performed By: #### L IPASE, CBC, CMP, HS TROP #### [facility] [address] [place] [address] Automated basophil %Ordered By: Nicole Posadas on 04-02-2023 Basophils/100 WBC (Bld) 0.2 % Normal . [facility] Comment on above: Performed By: #### L IPASE, CBC, CMP, HS TROP #### [facility] [address] [place] [address] [place] Automated basophil countOrde red By: Nicole Posadas on 04-02-2023 Basophils (Bld) [#/Vol] 0.0 10*3/uL Normal 0.0-0.2 [facility] Comment on above: Result Comment: PERF ORMED BY: [place] [address] PATHOLOGIST ASSISTANT STORE MANAGER OPERATIONS PAULA RODRIGUES M.D. Performed By: #### L IPASE, CBC, CMP, HS TROP #### [address] Automated blood monocyte cou ntOrdered By: Nicole Posadas on 04-02-2023 Monocytes (Bld) [#/Vol] 0.6 10*3/uL Normal 0.0-0.8 [facility] Comment on above: Performed By: #### L IPASE, CBC, CMP, HS TROP #### [address] Automated eosinophil %Ordere d By: Nicole Jjdeannee on 04-02-2023 Eosinophils/100 WBC (Bld) 1.7 % Normal . [facility] Comment on above: Performed By: #### L IPASE, CBC, CMP, HS TROP #### [address] Automated eosinophil countOr dered By: Nicole Posadas on 04-02-2023 Eosinophils (Bld) [#/Vol] 0.1 10*3/uL Normal 0.0-0.45 [facility] Comment on above: Performed By: #### L IPASE, CBC, CMP, HS TROP #### [address] Automated monocyte %Ordered By: Nicole Jjdeannee on 04-02-2023 Monocytes/100 WBC (Bld) 9.8 % Normal . [facility] Comment on above: Performed By: #### L IPASE, CBC, CMP, HS TROP #### [address] Automated neutrophil %Ordere d By: Nicole Jjfle on 04-02-2023 Neutrophils/100 WBC (Bld) 59.1 % Normal . [facility] Comment on above: Performed By: #### L IPASE, CBC, CMP, HS TROP #### [facility] [address] [place] [address] Automated urine color determ inationOrdered By: Nicole Posadas on 04-02-2023 Color (U) Yellow Normal Yellow [facility] Comment on above: Order Comment: Name Collection Type:: Clean-Voided Midstream Performed By: #### U A #### [address] Bilirubin Test strip Ql (U)O rdered By: Nicloe Posadas on 04-02-2023 Bilirubin Ql (U) Negative Negative [facility] Bilirubin.total [Mass/volume ] in Serum or PlasmaOrdered By: Nicole Posadas on 04-02-2023 Bilirubin [Mass/Vol] 0.3 mg/dL Normal 0.3-1.0 [facility] Comment on above: Performed By: #### L IPASE, CBC, CMP, HS TROP #### [address] abdomen pelvis w conon CT abdomen pelvis w con [facility] [address] [place] [address] CT Scan Report Signed Patient: Chioma Arciniega MR#: [id number] : 1970 Acct:[id number] Age/Sex: 52 / F ADM Date: 04/02/23 Loc: ER Room: Type: [facility] ER Attending Dr: Copies to: Nicole [...] gland. Impression dictated by: Eyal Paredes Jr., DGopalOGopal04/02/2023 6:15 PM Dictation Location: [place] [address] Transcribed By: [facility] 04/02/231814 Dictated By: Eyal Paredes Jr, DO 04/02/23 180 Signed By: 04/02/231814 Normal [facility] Calcium [Mass/volume] in Ser um or PlasmaOrdered By: Nicole Posadas on 04-02-2023 Calcium [Mass/Vol] 9.7 mg/dL Normal 8.6-10.3 [facility] Comment on above: Performed By: #### L IPASE, CBC, CMP, HS TROP #### [facility] [address] Carbon dioxide, total [Moles /volume] in Serum or PlasmaOrdered By: Nicole Posadas on 04-02-2023 CO2 [Moles/Vol] 26.3 mmol/L Normal 21.0-31.0 [facility] Comment on above: Performed By: #### L IPASE, CBC, CMP, HS TROP #### [facility] [address] [place] [id number] [place] Chloride [Moles/volume] in S erika or PlasmaOrdered By: Nicole Posadas on 04-02-2023 Chloride [Moles/Vol] 106 mmol/L Normal 98-107 [facility] Comment on above: Performed By: #### L IPASE, CBC, CMP, HS TROP #### [address] Complete Blood Count Auto Di ffon 04-02-2023 Mean Corpuscular HGB Conc 34.0 g/dL Normal 32.0-35.0 [facility] Comment on above: Performed By: #### L IPASE, CBC, CMP, HS TROP #### [address] Monocytes/100 WBC (Bld) 17.36 % Normal 0.00-20.00 [facility] Comment on above: Performed By: #### L IPASE, CBC, CMP, HS TROP #### [address] NRBC% 0.1 /100{WBC} Normal 0-0.5 [facility] Comment on above: Performed By: #### L IPASE, CBC, CMP, HS TROP #### [address] Comprehensive Metabolic Pane nimesh 04-02-2023 Albumin [Mass/Vol] 4.2 g/dL Normal 3.5-5.7 [facility] Comment on above: Performed By: #### L IPASE, CBC, CMP, HS TROP #### [address] Anion gap [Moles/Vol] Not performed Normal 6.0-15.0 [facility] Comment on above: Performed By: #### L IPASE, CBC, CMP, HS TROP #### [address] Creatinine Clr Calc Pharmacy 62.75 Normal [facility] Comment on above: Performed By: #### L IPASE, CBC, CMP, HS TROP #### [address] GFR/1.73 sq M.predicted MDRD (S/P/Bld) [Vol rate/Area] mL/min/{1.73_m2} Normal [facility] Comment on above: Performed By: #### L IPASE, CBC, CMP, HS TROP #### [address] Potassium Normal 3.5-5.1 [facility] Comment on above: Result Comment: Spec imen hemolyzed, redraw requested Performed By: #### L IPASE, CBC, CMP, HS TROP #### [address] Creatinine [Mass/volume] in Serum or PlasmaOrdered By: Nicole Posadas on 04-02-2023 Creatinine [Mass/Vol] 0.82 mg/dL Normal 0.60-1.[address] [facility] Comment on above: Performed By: #### L IPASE, CBC, CMP, HS TROP #### [address] D-Dimer High Sensitivityon 0 04-02-2023 D-Dimer High Sensitivity < 200 Normal 0-243 [facility] Comment on above: Result Comment: [...] coagulation studies. Please contact the laboratory at [phone] for redraw instructions. PERFORMED BY: [place] [address] PATHOLOGIST ASSISTANT STORE MANAGER OPERATIONS PAULA RODRIGUES M.D. Performed By: #### L IPASE, CBC, CMP, HS TROP #### [address] [place] [address] [place] ECG 12 lead ECGon 04-02-2023 ECG 12 lead ECG [facility] [address] [place] [address] Electrocardiograph Report Signed Patient: Chioma Arciniega MR#: [id number] : 1970 Acct:[id number] Age/Sex: 52 / F ADM Date: 04/02/23 Loc: ER Room: Type: [facility] ER Attending Dr: Ordering Provider: Nicole [...] Xiang Kellogg MD 04/02/23 1527 Normal [facility] Erythrocyte distribution wid th [Ratio] by Automated countOrdered By: Nicole Posadas on 04-02-2023 Erythrocyte distribution width (RBC) [Ratio] 13.3 % Normal 11.9-15.3 [facility] Comment on above: Performed By: #### L IPASE, CBC, CMP, HS TROP #### [facility] [address] [place] [address] Erythrocytes [#/volume] in B lood by Automated countOrdered By: Nicole Posadas on 04-02-2023 RBC (Bld) [#/Vol] 4.29 10*6/uL Normal 3.60-5.00 [facility] Comment on above: Performed By: #### L IPASE, CBC, CMP, HS TROP #### [facility] [address] [place] [address] Fibrin D-dimer [Presence] in Platelet poor plasma by Latex agglutinationOrdered By: Nicole Posadas on 04-02-2023 Fibrin D-dimer LA Ql (PPP) < 200 ng/mL 0-243 [facility] Comment on above: The reference [...] coagulation studies. Please contact the laboratory at [phone] for redraw instructions. Glucose [Mass/volume] in Ser um or PlasmaOrdered By: Nicole Posadas on 04-02-2023 Glucose [Mass/Vol] 90 mg/dL Normal 70-100 [facility] Comment on above: ADA recommended refe rence rangeRandom Glucose Reference Range is dependent on time and content of last meal. Glucose of more than 200 mg/dL in a nonstressed, ambulatory subject supports the diagnosis of Diabetes Mellitus. Result Comment: [place] om Glucose Reference Range is dependent on time and content of last meal. Glucose of more than 200 mg/dL in a nonstressed, ambulatory subject supports the diagnosis of Diabetes Mellitus. ADA recommended reference range Performed By: #### L IPASE, CBC, CMP, HS TROP #### [facility] [address] [place] [address] [place] Hematocrit [Volume Fraction] of Blood by Automated countOrdered By: Nicole Posadas on 04-02-2023 Hematocrit (Bld) [Volume fraction] 41.8 % Normal 34.0-46.4 [facility] Comment on above: Performed By: #### L IPASE, CBC, CMP, HS TROP #### [facility] [address] [place] [id number] [place] Hemoglobin [Mass/volume] in BloodOrdered By: Nicole Posadas on 04-02-2023 Hemoglobin (Bld) [Mass/Vol] 14.2 g/dL Normal 11.8-15.4 [facility] Comment on above: Performed By: #### L IPASE, CBC, CMP, HS TROP #### [facility] [address] [place] [address] Ketones Auto test strip (U) [Mass/Vol]Ordered By: Nicole Posadas on 04-02-2023 Ketones (U) [Mass/Vol] Negative Negative [facility] Leukocytes [#/volume] correc aurelia for nucleated erythrocytes in Blood by Automated counOrdered By: Nicole Posadas on 04-02-2023 WBC corrected for nucl RBC Auto (Bld) [#/Vol] 6.2 10*3/uL 3.8-11.6 [facility] Leukocytes [#/volume] in Blo od by Automated countOrdered By: Nicole Posadas on 04-02-2023 WBC (Bld) [#/Vol] 6.2 10*3/uL Normal 3.8-11.6 [facility] Comment on above: Performed By: #### L IPASE, CBC, CMP, HS TROP #### [address] Lipase [Enzymatic activity/v olume] in Serum or PlasmaOrdered By: Nicole Posadas on 04-02-2023 Lipase [Catalytic activity/Vol] 186.0 U/L High 11.0-82.0 [facility] Comment on above: Result Comment: PERF ORMED BY: [place] [address] PATHOLOGIST ASSISTANT STORE MANAGER OPERATIONS PAULA RODRIGUES M.D. Performed By: #### L IPASE, CBC, CMP, HS TROP #### [place] [address] [place] Lymphocytes [#/volume] in Bl ood by Automated countOrdered By: Nicole Posadas on 04-02-2023 Lymphocytes (Bld) [#/Vol] 1.8 10*3/uL Normal 1.00-4.8 [facility] Comment on above: Performed By: #### L IPASE, CBC, CMP, HS TROP #### [facility] [address] [place] [address] [place] Lymphocytes/100 leukocytes i n Blood by Automated countOrdered By: Nicole Posadas on 04-02-2023 Lymphocytes/100 WBC (Bld) 29.2 % Normal . [facility] Comment on above: Performed By: #### L IPASE, CBC, CMP, HS TROP #### [facility] [address] MCH [Entitic mass] by Automa aurelia countOrdered By: Nicole Posadas on 04-02-2023 MCH (RBC) [Entitic mass] 33.1 pg Normal 24.7-34.3 [facility] Comment on above: Performed By: #### L IPASE, CBC, CMP, HS TROP #### [facility] [address] [place] [address] MCHC Auto (RBC) [Mass/Vol]Or dered By: Nicole Posadas on 04-02-2023 MCHC (RBC) [Mass/Vol] 34.0 g/dL 32.0-35.[address] [facility] MCV [Entitic volume] by Auto mated countOrdered By: Nicole Posadas on 04-02-2023 MCV (RBC) [Entitic vol] 97.4 fL Normal 80-100 [facility] Comment on above: Performed By: #### L IPASE, CBC, CMP, HS TROP #### [facility] [address] [place] [address] [place] Monocyte distribution width [Entitic volume] in Blood by AutomatedOrdered By: Nicole Posadas on 04-02-2023 Monocyte distribution width Auto (Bld) [Entitic vol] 17.36 % 0.00-20.00 [facility] Neutrophils [#/volume] in Bl ood by Automated countOrdered By: Nicole Posadas on 04-02-2023 Neutrophils (Bld) [#/Vol] 3.6 10*3/uL Normal 1.8-7.7 [facility] Comment on above: Performed By: #### L IPASE, CBC, CMP, HS TROP #### [facility] [address] Nitrite Test strip Ql (U)Ord ered By: Nicole Posadas on 04-02-2023 Nitrite Ql (U) Negative Negative [facility] No Panel InformationOrdered By: Nicole Posadas on 04-02-2023 Estimated GFR (CKD-EPI) > 60.0 mL/Min [facility] Creatinine Clearance (Chem 62.75 [facility] Nucleated erythrocytes [Pres ence] in Blood by Automated countOrdered By: Nicole Posadas on 04-02-2023 Nucleated RBC Auto Ql (Bld) 0.1 /100{WBC} 0-0.5 [facility] Platelet mean volume [Entiti c volume] in Blood by Automated countOrdered By: Nicole Posadas on 04-02-2023 Platelet mean volume (Bld) [Entitic vol] 8.3 fL Normal 6.3-10.7 [facility] Comment on above: Performed By: #### L IPASE, CBC, CMP, HS TROP #### [facility] [address] [place] [address] [place] Platelets [#/volume] in Bloo d by Automated countOrdered By: Nicole Posadas on 04-02-2023 Platelets (Bld) [#/Vol] 236 10*3/uL Normal 150-450 [facility] Comment on above: Performed By: #### L IPASE, CBC, CMP, HS TROP #### [facility] [address] [place] [address] [place] Potassium [Moles/volume] in Serum or PlasmaOrdered By: Nicole Posadas on 04-02-2023 Potassium [Moles/Vol] 4.3 mmol/L Normal 3.5-5.[address] [facility] Comment on above: Result Comment: PERF ORMED BY: [place] [address] PATHOLOGIST ASSISTANT STORE MANAGER OPERATIONS PAULA RODRIGUES M.D. Performed By: #### R EDRAW K #### [address] Protein Auto test strip (U) [Mass/Vol]Ordered By: Nicole Posadas on 04-02-2023 Protein (U) [Mass/Vol] Negative Negative [facility] Protein [Mass/volume] in Ser um or PlasmaOrdered By: Nicole Posadas on 04-02-2023 Protein [Mass/Vol] 6.6 g/dL Normal 6.4-8.9 [facility] Comment on above: Performed By: #### L IPASE, CBC, CMP, HS TROP #### [address] Serum globulin measurement b y calculation (mass/volume)Ordered By: Nicole Posadas on 04-02-2023 Globulin (S) [Mass/Vol] 2.4 g/dL Normal [facility] Comment on above: Performed By: #### L IPASE, CBC, CMP, HS TROP #### [address] Serum or plasma albumin/glob ulin mass ratioOrdered By: Nicole Posadas on 04-02-2023 Albumin/Globulin [Mass ratio] 1.8 {ratio} [facility] Comment on above: Performed By: #### L IPASE, CBC, CMP, HS TROP #### [address] Serum or plasma anion gap de terminationOrdered By: Nicole Posadas on 04-02-2023 Anion gap [Moles/Vol] TNP [facility] Comment on above: Test not performed Sodium [Moles/volume] in Ser um or PlasmaOrdered By: Nicole Posadas on 04-02-2023 Sodium [Moles/Vol] 137 mmol/L Normal 136-145 [facility] Comment on above: Performed By: #### L IPASE, CBC, CMP, HS TROP #### [address] Specific gravity Auto test s trip (U) [Rel density]Ordered By: Nicole Posadas on 04-02-2023 Specific gravity (U) [Rel density] 1.022 1.001-1.03 0 [facility] Troponin I High Sensitivityo n 04-02-2023 Troponin I High Sensitivity 2.6 pg/mL Normal 0.0-15.0 [facility] Comment on above: Result Comment: PERF ORMED BY: [place] [address] PATHOLOGIST ASSISTANT STORE MANAGER OPERATIONS PAULA RODRIGUES M.D. Performed By: #### L IPASE, CBC, CMP, HS TROP #### [address] Troponin I.cardiac [Mass/vol ume] in Serum or Plasma by Detection limit <= 0.01 ng/Ordered By: Nicole Posadas on 04-02-2023 Troponin I.cardiac DL <= 0.01 ng/mL [Mass/Vol] 2.6 pg/mL 0.0-15.0 [facility] Urea nitrogen [Mass/volume] in Serum or PlasmaOrdered By: Nicole Posadas on 04-02-2023 Urea nitrogen [Mass/Vol] 7 mg/dL Normal 09-30 [facility] Comment on above: Performed By: #### L IPASE, CBC, CMP, HS TROP #### [address] Urinalysison 04-02-2023 Appearance (U) Clear Normal Clear [facility] Comment on above: Order Comment: Name Collection Type:: Clean-Voided Midstream Performed By: #### U A #### [address] Bilirubin,Urine Negative Normal Negative [facility] Comment on above: Order Comment: Name Collection Type:: Clean-Voided Midstream Performed By: #### U A #### [address] Glucose Ql (U) Normal Normal Normal [facility] Comment on above: Order Comment: Name Collection Type:: Clean-Voided Midstream Performed By: #### U A #### [address] [address] [place] Ketones Ql (U) Negative Normal Negative [facility] Comment on above: Order Comment: Name Collection Type:: Clean-Voided Midstream Performed By: #### U A #### [address] Leukocyte esterase Test strip Ql (U) Negative Normal Negative [facility] Comment on above: Order Comment: Name Collection Type:: Clean-Voided Midstream Performed By: #### U A #### [place] [address] [place] Nitrite,Urine Negative Normal Negative [facility] Comment on above: Order Comment: Name Collection Type:: Clean-Voided Midstream Performed By: #### U A #### [address] Occult Blood,Urine Negative Normal Negative [facility] Comment on above: Order Comment: Name Collection Type:: Clean-Voided Midstream Result Comment: PERF ORMED BY: [place] [address] PATHOLOGIST ASSISTANT STORE MANAGER OPERATIONS PAULA RODRIGUES M.D. Performed By: #### U A #### [place] [address] [place] Protein,Urine Negative Normal Negative [facility] Comment on above: Order Comment: Name Collection Type:: Clean-Voided Midstream Performed By: #### U A #### [place] [address] [place] Specificy [place],Urine 1.022 Normal 1.001-1.03 0 [facility] Comment on above: Order Comment: Name Collection Type:: Clean-Voided Midstream Performed By: #### U A #### [place] [address] [place] Urobilinogen,Urine Normal Normal Normal [facility] Comment on above: Order Comment: Name Collection Type:: Clean-Voided Midstream Performed By: #### U A #### [place] [address] [place] Urine clarity by refractomet ry automatedOrdered By: Nicole Posadas on 04-02-2023 Clarity Refractometry automated (U) Clear Clear [facility] Urine glucose measurement by automated test strip (mass/volume)Ordered By: Nicole Posadas on 04-02-2023 Glucose Auto test strip (U) [Mass/Vol] Normal mg/dL Normal [facility] Urine hemoglobin detection b y automated test stripOrdered By: Nicole Posadas on 04-02-2023 Hemoglobin Auto test strip Ql (U) Negative Negative [facility] Urine leukocyte esterase det ection by automated test stripOrdered By: Niocle Posadas on 04-02-2023 Leukocyte esterase Auto test strip Ql (U) Negative Negative [facility] Urine pH measurement by auto mated test stripOrdered By: Nicole Posadas on 04-02-2023 pH (U) 5.5 [pH] Normal 5.0-9.0 [facility] Comment on above: Order Comment: Name Collection Type:: Clean-Voided Midstream Performed By: #### U A #### [facility] [address] Urobilinogen Auto test strip (U) [Mass/Vol]Ordered By: Nicole Posadas on 04-02-2023 Urobilinogen (U) [Mass/Vol] Normal mg/dL Normal [facility] Alanine aminotransferase [En zymatic activity/volume] in Serum or PlasmaOrdered By: Nicole Posadas on 11-09-2022 ALT [Catalytic activity/Vol] 12 U/L Normal 7-52 [facility] Comment on above: Performed By: #### C MP, LIPASE, CBC #### [facility] [address] [place] [address] [place] Albumin [Mass/volume] in Ser um or Plasma by Bromocresol green (BCG) dye binding methoOrdered By: Nicole Posadas on 11-09-2022 Albumin BCG dye [Mass/Vol] 4.4 g/dL 3.5-5.7 [facility] Alkaline phosphatase [Enzyma tic activity/volume] in Serum or PlasmaOrdered By: Nicole Posadas on 11-09-2022 ALP [Catalytic activity/Vol] 126 U/L High 34-104 [facility] Comment on above: Performed By: #### C MP, LIPASE, CBC #### [address] Aspartate aminotransferase [ Enzymatic activity/volume] in Serum or PlasmaOrdered By: Nicole Posadas on 11-09-2022 AST [Catalytic activity/Vol] 17 U/L Normal 13-39 [facility] Comment on above: Performed By: #### C MP, LIPASE, CBC #### [address] Automated basophil %Ordered By: Nicole Posadas on 11-09-2022 Basophils/100 WBC (Bld) 0.9 % Normal . [facility] Comment on above: Performed By: #### C MP, LIPASE, CBC #### [address] Automated basophil countOrde red By: Nicole Posadas on 11-09-2022 Basophils (Bld) [#/Vol] 0.1 10*3/uL Normal 0.0-0.2 [facility] Comment on above: Result Comment: PERF ORMED BY: [place] [address] PATHOLOGIST ASSISTANT STORE MANAGER OPERATIONS PAULA RODRIGUES M.D. Performed By: #### C MP, LIPASE, CBC #### [address] Automated blood monocyte cou ntOrdered By: Nicole Posadas on 11-09-2022 Monocytes (Bld) [#/Vol] 0.8 10*3/uL Normal 0.0-0.8 [facility] Comment on above: Performed By: #### C MP, LIPASE, CBC #### [address] Automated eosinophil %Ordere d By: Nicole Posadas on 11-09-2022 Eosinophils/100 WBC (Bld) 1.6 % Normal . [facility] Comment on above: Performed By: #### C MP, LIPASE, CBC #### [address] Automated eosinophil countOr dered By: Nicole Posadas on 11-09-2022 Eosinophils (Bld) [#/Vol] 0.1 10*3/uL Normal 0.0-0.45 [facility] Comment on above: Performed By: #### C MP, LIPASE, CBC #### [address] Automated monocyte %Ordered By: Nicole Posadas on 11-09-2022 Monocytes/100 WBC (Bld) 8.1 % Normal . [facility] Comment on above: Performed By: #### C MP, LIPASE, CBC #### [address] Automated neutrophil %Ordere d By: Nicloe Posadas on 11-09-2022 Neutrophils/100 WBC (Bld) 65.4 % Normal . [facility] Comment on above: Performed By: #### C MP, LIPASE, CBC #### [address] Automated urine color determ inationOrdered By: Nicole Posadas on 11-09-2022 Color (U) Yellow Normal Yellow [facility] Comment on above: Order Comment: Name Collection Type:: Clean-Voided Midstream Performed By: #### L IPASE, CBC, CMP, HS TROP #### [address] Bilirubin Test strip Ql (U)O rdered By: Nicole Posadas on 11-09-2022 Bilirubin Ql (U) Negative Negative [facility] Bilirubin.total [Mass/volume ] in Serum or PlasmaOrdered By: Nicole Posadas on 11-09-2022 Bilirubin [Mass/Vol] 0.3 mg/dL Normal 0.3-1.0 [facility] Comment on above: Performed By: #### C MP, LIPASE, CBC #### [address] abdomen pelvis w conon CT abdomen pelvis w con [facility] [place] [address] CT Scan Report Signed Patient: Chioma Arciniega MR#: [id number] : 1970 Acct:[id number] Age/Sex: 52 / F ADM Date: 11/09/22 Loc: ER Room: Type: [facility] ER Attending Dr: Copies to: Nicole [...] Rajeev Ulloa M.D.11/09/2022 4:14 PM Dictation Location: [place] [address] Transcribed By: [facility] 11/09/22 1614 Dictated By: Rajeev Ulloa II, MD 11/09/22 1608 Signed By: 11/09/22 1614 Normal [facility] Calcium [Mass/volume] in Ser um or PlasmaOrdered By: Nicole Posadas on 11-09-2022 Calcium [Mass/Vol] 9.7 mg/dL Normal 8.6-10.3 [facility] Comment on above: Performed By: #### C MP, LIPASE, CBC #### [address] Carbon dioxide, total [Moles /volume] in Serum or PlasmaOrdered By: Nicole Posadas on 11-09-2022 CO2 [Moles/Vol] 28.6 mmol/L Normal 21.0-31.0 [facility] Comment on above: Performed By: #### C MP, LIPASE, CBC #### [address] Chloride [Moles/volume] in S erika or PlasmaOrdered By: Nicole Posadas on 11-09-2022 Chloride [Moles/Vol] 107 mmol/L Normal 98-107 [facility] Comment on above: Performed By: #### C MP, LIPASE, CBC #### [address] Complete Blood Count Auto Di ffon 11-09-2022 Mean Corpuscular HGB Conc 33.4 g/dL Normal 32.0-35.0 [facility] Comment on above: Performed By: #### C MP, LIPASE, CBC #### [place] [address] [place] Monocytes/100 WBC (Bld) 18.76 % Normal 0.00-20.00 [facility] Comment on above: Performed By: #### C MP, LIPASE, CBC #### [address] NRBC% 0.0 /100{WBC} Normal 0-0.5 [facility] Comment on above: Performed By: #### C MP, LIPASE, CBC #### [facility] [address] Comprehensive Metabolic Pane nimesh 11-09-2022 Albumin [Mass/Vol] 4.4 g/dL Normal 3.5-5.7 [facility] Comment on above: Performed By: #### C MP, LIPASE, CBC #### [facility] [address] Creatinine Clr Calc Pharmacy 69.00 Normal [facility] Comment on above: Performed By: #### C MP, LIPASE, CBC #### [facility] [address] GFR/1.73 sq M.predicted MDRD (S/P/Bld) [Vol rate/Area] mL/min/{1.73_m2} Normal [facility] Comment on above: Performed By: #### C MP, LIPASE, CBC #### [address] Creatinine [Mass/volume] in Serum or PlasmaOrdered By: Nicole Posadas on 11-09-2022 Creatinine [Mass/Vol] 0.78 mg/dL Normal 0.60-1.[address] [facility] Comment on above: Performed By: #### C MP, LIPASE, CBC #### [address] ECG 12 lead ECGon 11-09-2022 ECG 12 lead ECG [facility] [address] [place] [address] Electrocardiograph Report Signed Patient: Chioma Arciniega MR#: [id number] : 1970 Acct:[id number] Age/Sex: 52 / F ADM Date: 11/09/22 Loc: ER Room: Type: [facility] ER Attending Dr: Ordering Provider: Nicole Posadas [...] Agustin Llanes MD 06/29 0147 Normal [facility] Erythrocyte distribution wid th [Ratio] by Automated countOrdered By: Nicole Posadas on 11-09-2022 Erythrocyte distribution width (RBC) [Ratio] 13.6 % Normal 11.9-15.3 [facility] Comment on above: Performed By: #### C MP, LIPASE, CBC #### [address] Erythrocytes [#/volume] in B lood by Automated countOrdered By: Nicole Posadas on 11-09-2022 RBC (Bld) [#/Vol] 4.52 10*6/uL Normal 3.60-5.00 [facility] Comment on above: Performed By: #### C MP, LIPASE, CBC #### [facility] [address] [place] [address] [place] Glucose [Mass/volume] in Ser um or PlasmaOrdered By: Nicole Posadas on 11-09-2022 Glucose [Mass/Vol] 96 mg/dL Normal 70-100 [facility] Comment on above: ADA recommended refe rence rangeRandom Glucose Reference Range is dependent on time and content of last meal. Glucose of more than 200 mg/dL in a nonstressed, ambulatory subject supports the diagnosis of Diabetes Mellitus. Result Comment: [place] Glucose Reference Range is dependent on time and content of last meal. Glucose of more than 200 mg/dL in a nonstressed, ambulatory subject supports the diagnosis of Diabetes Mellitus. ADA recommended reference range Performed By: #### C MP, LIPASE, CBC #### [facility] [address] [place] [address] [place] Hematocrit [Volume Fraction] of Blood by Automated countOrdered By: Nicole Posadas on 11-09-2022 Hematocrit (Bld) [Volume fraction] 44.4 % Normal 34.0-46.4 [facility] Comment on above: Performed By: #### C MP, LIPASE, CBC #### [facility] [address] [place] [address] Hemoglobin [Mass/volume] in BloodOrdered By: Nicole Posadas on 11-09-2022 Hemoglobin (Bld) [Mass/Vol] 14.9 g/dL Normal 11.8-15.4 [facility] Comment on above: Performed By: #### C MP, LIPASE, CBC #### [address] Ketones Auto test strip (U) [Mass/Vol]Ordered By: Nicole Posadas on 11-09-2022 Ketones (U) [Mass/Vol] Negative Negative [facility] Leukocytes [#/volume] correc aurelia for nucleated erythrocytes in Blood by Automated counOrdered By: Nicole Posadas on 11-09-2022 WBC corrected for nucl RBC Auto (Bld) [#/Vol] 9.3 10*3/uL 3.8-11.6 [facility] Leukocytes [#/volume] in Blo od by Automated countOrdered By: Nicole Posadas on 11-09-2022 WBC (Bld) [#/Vol] 9.3 10*3/uL Normal 3.8-11.6 [facility] Comment on above: Performed By: #### C MP, LIPASE, CBC #### [facility] [address] [place] [address] Lipase [Enzymatic activity/v olume] in Serum or PlasmaOrdered By: Nicole Posadas on 11-09-2022 Lipase [Catalytic activity/Vol] 78.0 U/L Normal 11.0-82.0 [facility] Comment on above: Result Comment: PERF ORMED BY: [place] [address] PATHOLOGIST ASSISTANT STORE MANAGER OPERATIONS PAULA RODRIGUES M.D. Performed By: #### C MP, LIPASE, CBC #### [facility] [address] Lymphocytes [#/volume] in Bl ood by Automated countOrdered By: Nicole Posadas on 11-09-2022 Lymphocytes (Bld) [#/Vol] 2.2 10*3/uL Normal 1.00-4.8 [facility] Comment on above: Performed By: #### C MP, LIPASE, CBC #### [address] Lymphocytes/100 leukocytes i n Blood by Automated countOrdered By: Nicole Posadas on 11-09-2022 Lymphocytes/100 WBC (Bld) 24.0 % Normal . [facility] Comment on above: Performed By: #### C MP, LIPASE, CBC #### [address] MCH [Entitic mass] by Automa aurelia countOrdered By: Nicole Posadas on 11-09-2022 MCH (RBC) [Entitic mass] 32.8 pg Normal 24.7-34.3 [facility] Comment on above: Performed By: #### C MP, LIPASE, CBC #### [address] MCHC Auto (RBC) [Mass/Vol]Or dered By: Nicole Posadas on 11-09-2022 MCHC (RBC) [Mass/Vol] 33.4 g/dL 32.0-35.[address] [facility] MCV [Entitic volume] by Auto mated countOrdered By: Nicole Posadas on 11-09-2022 MCV (RBC) [Entitic vol] 98.2 fL Normal 80-100 [facility] Comment on above: Performed By: #### C MP, LIPASE, CBC #### [facility] [address] [place] [address] Monocyte distribution width [Entitic volume] in Blood by AutomatedOrdered By: Nicole Posadas on 11-09-2022 Monocyte distribution width Auto (Bld) [Entitic vol] 18.76 % 0.00-20.00 [facility] Neutrophils [#/volume] in Bl ood by Automated countOrdered By: Nicole Posadas on 11-09-2022 Neutrophils (Bld) [#/Vol] 6.1 10*3/uL Normal 1.8-7.7 [facility] Comment on above: Performed By: #### C MP, LIPASE, CBC #### [facility] [address] Nitrite Test strip Ql (U)Ord ered By: Nicole Posadas on 11-09-2022 Nitrite Ql (U) Negative Negative [facility] No Panel InformationOrdered By: Nicole Posadas on 11-09-2022 Estimated GFR (CKD-EPI) > 60.0 mL/Min [facility] Creatinine Clearance (Chem 69.00 [facility] Nucleated erythrocytes [Pres ence] in Blood by Automated countOrdered By: Nicole Posadas on 11-09-2022 Nucleated RBC Auto Ql (Bld) 0.0 /100{WBC} 0-0.5 [facility] Platelet mean volume [Entiti c volume] in Blood by Automated countOrdered By: Nicole Posadas on 11-09-2022 Platelet mean volume (Bld) [Entitic vol] 8.3 fL Normal 6.3-10.7 [facility] Comment on above: Performed By: #### C MP, LIPASE, CBC #### [address] Platelets [#/volume] in Bloo d by Automated countOrdered By: Nicole Posadas on 11-09-2022 Platelets (Bld) [#/Vol] 246 10*3/uL Normal 150-450 [facility] Comment on above: Performed By: #### C MP, LIPASE, CBC #### [facility] [address] [place] [address] [place] Potassium [Moles/volume] in Serum or PlasmaOrdered By: Nicole Posadas on 11-09-2022 Potassium [Moles/Vol] 3.7 mmol/L Normal 3.5-5.[address] [facility] Comment on above: Performed By: #### C MP, LIPASE, CBC #### [facility] [address] [place] [address] Protein Auto test strip (U) [Mass/Vol]Ordered By: Nicole Jjanand on 11-09-2022 Protein (U) [Mass/Vol] Negative Negative [facility] Protein [Mass/volume] in Ser um or PlasmaOrdered By: Nicole Jjanand on 11-09-2022 Protein [Mass/Vol] 7.1 g/dL Normal 6.4-8.9 [facility] Comment on above: Performed By: #### C MP, LIPASE, CBC #### [address] Serum globulin measurement b y calculation (mass/volume)Ordered By: Nicole Jjanand on 11-09-2022 Globulin (S) [Mass/Vol] 2.7 g/dL [facility] Comment on above: Performed By: #### C MP, LIPASE, CBC #### [address] Serum or plasma albumin/glob ulin mass ratioOrdered By: Nicole Jjanand on 11-09-2022 Albumin/Globulin [Mass ratio] 1.6 {ratio} [facility] Comment on above: Performed By: #### C MP, LIPASE, CBC #### [address] Serum or plasma anion gap de terminationOrdered By: Nicole Jjanand on 11-09-2022 Anion gap [Moles/Vol] 8.1 mmol/L Normal 6.0-15.[address] [facility] Comment on above: Performed By: #### C MP, LIPASE, CBC #### [address] Sodium [Moles/volume] in Ser um or PlasmaOrdered By: Nicole Jjanand on 11-09-2022 Sodium [Moles/Vol] 140 mmol/L Normal 136-145 [facility] Comment on above: Performed By: #### C MP, LIPASE, CBC #### [address] Specific gravity Auto test s trip (U) [Rel density]Ordered By: Nicole Posadas on 11-09-2022 Specific gravity (U) [Rel density] 1.012 1.001-1.03 0 [facility] Troponin I High Sensitivityo n 11-09-2022 Troponin I High Sensitivity 3.0 pg/mL Normal 0.0-15.0 [facility] Comment on above: Result Comment: PERF ORMED BY: [place] [address] PATHOLOGIST ASSISTANT STORE MANAGER OPERATIONS PAULA RODRIGUES M.D. Performed By: #### H S TROP #### [address] Troponin I.cardiac [Mass/vol ume] in Serum or Plasma by Detection limit <= 0.01 ng/Ordered By: Nicole Posadas on 11-09-2022 Troponin I.cardiac DL <= 0.01 ng/mL [Mass/Vol] 3.0 pg/mL 0.0-15.0 [facility] Urea nitrogen [Mass/volume] in Serum or PlasmaOrdered By: Nicole Posadas on 11-09-2022 Urea nitrogen [Mass/Vol] 6 mg/dL Low 7-25 [facility] Comment on above: Performed By: #### C MP, LIPASE, CBC #### [facility] [address] [place] [address] Urinalysison 11-09-2022 Appearance (U) Clear Normal Clear [facility] Comment on above: Order Comment: Name Collection Type:: Clean-Voided Midstream Performed By: #### L IPASE, CBC, CMP, HS TROP #### [address] Bilirubin,Urine Negative Normal Negative [facility] Comment on above: Order Comment: Name Collection Type:: Clean-Voided Midstream Performed By: #### L IPASE, CBC, CMP, HS TROP #### [address] Glucose Ql (U) Normal Normal Normal [facility] Comment on above: Order Comment: Name Collection Type:: Clean-Voided Midstream Performed By: #### L IPASE, CBC, CMP, HS TROP #### [place] [address] [place] Ketones Ql (U) Negative Normal Negative [facility] Comment on above: Order Comment: Name Collection Type:: Clean-Voided Midstream Performed By: #### L IPASE, CBC, CMP, HS TROP #### [address] Leukocyte esterase Test strip Ql (U) Negative Normal Negative [facility] Comment on above: Order Comment: Name Collection Type:: Clean-Voided Midstream Performed By: #### L IPASE, CBC, CMP, HS TROP #### [place] [address] [place] Nitrite,Urine Negative Normal Negative [facility] Comment on above: Order Comment: Name Collection Type:: Clean-Voided Midstream Performed By: #### L IPASE, CBC, CMP, HS TROP #### [place] [address] [place] Occult Blood,Urine Negative Normal Negative [facility] Comment on above: Order Comment: Name Collection Type:: Clean-Voided Midstream Result Comment: PERF ORMED BY: [place] [address] PATHOLOGIST ASSISTANT STORE MANAGER OPERATIONS PAULA RODRIGUES M.D. Performed By: #### L IPASE, CBC, CMP, HS TROP #### [place] [address] [place] Protein,Urine Negative Normal Negative [facility] Comment on above: Order Comment: Name Collection Type:: Clean-Voided Midstream Performed By: #### L IPASE, CBC, CMP, HS TROP #### [place] [address] [place] Specificy [place],Urine 1.012 Normal 1.001-1.03 0 [facility] Comment on above: Order Comment: Name Collection Type:: Clean-Voided Midstream Performed By: #### L IPASE, CBC, CMP, HS TROP #### [address] [place] [address] [facility] Urobilinogen,Urine Normal Normal Normal [facility] Comment on above: Order Comment: Name Collection Type:: Clean-Voided Midstream Performed By: #### L IPASE, CBC, CMP, HS TROP #### [facility] [address] [place], [place] [id number] [facility] Urine clarity by refractomet ry automatedOrdered By: Nicole Posadas on 11-09-2022 Clarity Refractometry automated (U) Clear Clear [facility] Urine glucose measurement by automated test strip (mass/volume)Ordered By: Nicole Posadas on 11-09-2022 Glucose Auto test strip (U) [Mass/Vol] Normal mg/dL Normal [facility] Urine hemoglobin detection b y automated test stripOrdered By: Nicole Posadas on 11-09-2022 Hemoglobin Auto test strip Ql (U) Negative Negative [facility] Urine leukocyte esterase det ection by automated test stripOrdered By: Nicole Posadas on 11-09-2022 Leukocyte esterase Auto test strip Ql (U) Negative Negative [facility] Urine pH measurement by auto mated test stripOrdered By: Nicole Posadas on 11-09-2022 pH (U) 5.5 [pH] Normal 5.0-9.0 [facility] Comment on above: Order Comment: Name Collection Type:: Clean-Voided Midstream Performed By: #### L IPASE, CBC, CMP, HS TROP #### [facility] [address] [place], [place] [id number] [facility] Urobilinogen Auto test strip (U) [Mass/Vol]Ordered By: Nicole Posadas on 11-09-2022 Urobilinogen (U) [Mass/Vol] Normal mg/dL Normal [facility] UPPER EUSon 08-12-2022 [facility] Gastro[facility] Patient Name: Chioma Rainey Procedure Date: 08/12/2022 11:09 AM Date of : 1970 Admit Type: Outpatient Age: 52 Room: [facility] Proc Room 01 Gender: Female Note Status: Finalized Attending MD: Sabrina Dee MD, MPH, [id number] Procedure: Upper EUS Indications: Chronic pancreatitis, Epigastric abdominal pain, Celiac plexus block for pain secondary to chronic pancreatitis, Dysphagia, Follow-up of esophageal stenosis, For therapy of esophageal stenosis Providers: Sabrina Dee MD, MPH (Doctor), Kolby Gifford RN (Nurse), Elba Faustin (Nurse), Mary Gaviria, Cisco Network Architect (Cisco Network Architect) Referring MD: Alexander Nichols MD (Referring MD) [...] by the physician, the nurse and the bin packer in the procedure room. Mental Status Examination: [...] abnor (more content not included)... LAB, U [facility] Radiology Study observation (narrative) [facility] AMYLASEon 06-13-2022 Amylase [Catalytic activity/Vol] 92 U/L Normal 25-115 [facility] Comment on above: Performed By: #### L IPA, CMP, CRP, NAT #### [facility] [address] [place] [address] Dr. Keturah Fisher CBC AUTO DIFFon 06-13-2022 BASO # 0.1 103/ul Normal 0.0-0.1 [facility] Comment on above: Performed By: #### L IPA, CMP, CRP, NAT #### [facility] [address] [place] [address] Dr. Keturah Fisher Basophils/100 WBC (Bld) 0.7 % Normal 0.2-2.0 [facility] Comment on above: Performed By: #### L IPA, CMP, CRP, NAT #### [facility] [address] [place] [address] Dr. Keturah Fisher EO # 0.1 103/ul Normal 0.0-0.7 [facility] Comment on above: Performed By: #### L IPA, CMP, CRP, NAT #### [facility] [address] [place] [address] Dr. Keturah Fisher Eosinophils/100 WBC (Bld) 1.1 % Normal 0.9-7.0 [facility] Comment on above: Performed By: #### L IPA, CMP, CRP, NAT #### [facility] [address] [address] [address] Keturah Fisher Erythrocyte distribution width (RBC) [Ratio] 13.0 % Normal 11.0-15.0 [facility] Comment on above: Performed By: #### L IPA, CMP, CRP, NAT #### [facility] [address] [place] [address] Dr. Keturah Fisher Hematocrit (Bld) [Volume fraction] 40.5 % Normal 36.0-48.0 [facility] Comment on above: Performed By: #### L IPA, CMP, CRP, NAT #### [facility] [address] [place] [address] Dr. Keturah Fisher Hemoglobin (Bld) [Mass/Vol] 13.9 g/dL Normal 12.0-16.0 [facility] Comment on above: Performed By: #### L IPA, CMP, CRP, NAT #### [facility] [address] [place] [address] Dr. Keturah Fisher IG # 0.03 10e3/ul Normal 0.00-0.03 [facility] Comment on above: Performed By: #### L IPA, CMP, CRP, NAT #### [facility] [address] [place] [address] Dr. Keturah Fisher IG % 0.3 % Normal 0.0-0.5 [facility] Comment on above: Performed By: #### L IPA, CMP, CRP, NAT #### [facility] [address] [place] [address] Dr. Keturah Fisher LYMPH # 2.9 103/ul Normal 1.2-3.8 [facility] Comment on above: Performed By: #### L IPA, CMP, CRP, NAT #### [facility] [address] [place] [address] Dr. Keturah Fisher Lymphocytes/100 WBC (Bld) 25.0 % Normal 20.5-60.0 [facility] Comment on above: Performed By: #### L IPA, CMP, CRP, NAT #### [facility] [address] [place] [address] Dr. Keturah Fisher MANUAL DIFF REQ NO Normal [facility] Comment on above: Performed By: #### L IPA, CMP, CRP, NAT #### [facility] [address] [place] [address] Dr. Keturah Fisher MCH (RBC) [Entitic mass] 33.3 pg Normal 26.7-34.0 [facility] Comment on above: Performed By: #### L IPA, CMP, CRP, NAT #### [facility] [address] [place] [address] Dr. Keturah Fisher MCHC (RBC) [Mass/Vol] 34.3 g/dL Normal 29.9-35.2 [facility] Comment on above: Performed By: #### L IPA, CMP, CRP, NAT #### [facility] [address] [place] [address] Dr. Keturah Fisher MCV (RBC) [Entitic vol] 96.9 fL Normal 81.0-99.0 [facility] Comment on above: Performed By: #### L IPA, CMP, CRP, NAT #### [facility] [address] [place] [address] Dr. Keturah Fisher MONO # 0.7 103/ul Normal 0.3-0.8 [facility] Comment on above: Performed By: #### L IPA, CMP, CRP, NAT #### [facility] [address] [place] [address] Dr. Keturah Fisher Monocytes/100 WBC (Bld) 5.6 % Normal 1.7-12.0 [facility] Comment on above: Performed By: #### L IPA, CMP, CRP, NAT #### [facility] [address] [place] [address] Dr. Keturah Fisher NEUT # 7.8 103/ul Critically high 1.4-6.5 [facility] Comment on above: Performed By: #### L IPA, CMP, CRP, NAT #### [facility] [address] [place] [address] Dr. Keturah Fisher Neutrophils/100 WBC (Bld) 67.3 % Normal 43.0-75.0 [facility] Comment on above: Performed By: #### L IPA, CMP, CRP, NAT #### [facility] [address] [place] [address] Dr. Keturah Fisher Platelet mean volume (Bld) [Entitic vol] 9.5 fL Normal 9.5-13.5 [facility] Comment on above: Performed By: #### L IPA, CMP, CRP, NAT #### [facility] [address] [place] [address] Dr. Keturah Fisher PLT 227 103/ul Normal 150-450 [facility] Comment on above: Performed By: #### L IPA, CMP, CRP, NAT #### [facility] [address] [place] [address] Dr. Keturah Fisher RBC 4.18 106/ul Critically low 4.20-5.40 [facility] Comment on above: Performed By: #### L IPA, CMP, CRP, NAT #### [facility] [address] [place] [address] Dr. Keturah Fisher WBC 11.5 103/ul Critically high 4.0-11.0 [facility] Comment on above: Performed By: #### L IPA, CMP, CRP, NAT #### [facility] [address] [place] [address] Dr. Keturah Fisher LIPASEon 06-13-2022 Lipase [Catalytic activity/Vol] 168.0 U/L Normal 73.0-393.0 [facility] Comment on above: Performed By: #### L IPA, CMP, CRP, NAT #### [facility] [address] [place] [address] Dr. Keturah Fisher PROF 14(COMP METB)on 023 Albumin [Mass/Vol] 3.6 g/dL Normal 3.4-5.0 [facility] Comment on above: Performed By: #### L IPA, CMP, CRP, NAT #### [facility] [address] [place] [address] Dr. Keturah Fisher Albumin/Globulin [Mass ratio] 1.1 {ratio} Normal [facility] Comment on above: Performed By: #### L IPA, CMP, CRP, NAT #### [facility] [address] [address] [address] Keturah Fisher ALP [Catalytic activity/Vol] 132 U/L Critically high 46-116 [facility] Comment on above: Performed By: #### L IPA, CMP, CRP, NAT #### [facility] [address] [address] [address] Keturah Fisher ALT [Catalytic activity/Vol] 20 U/L Normal 14-59 [facility] Comment on above: Performed By: #### L IPA, CMP, CRP, NAT #### [facility] [address] [address] [address] Keturah Fisher Anion gap [Moles/Vol] 13.7 mmol/L Normal [facility] Comment on above: Performed By: #### L IPA, CMP, CRP, NAT #### [facility] [address] [address] [address] Keturah Fisher AST [Catalytic activity/Vol] 19 U/L Normal 15-37 [facility] Comment on above: Performed By: #### L IPA, CMP, CRP, NAT #### [facility] [address] [address] [address] Keturah Fisher Bilirubin [Mass/Vol] 0.1 mg/dL Critically low 0.2-1.0 [facility] Comment on above: Performed By: #### L IPA, CMP, CRP, NAT #### [facility] [address] [address] [address] Keturah Fisher Calcium [Mass/Vol] 10.1 mg/dL Normal 8.5-10.1 [facility] Comment on above: Performed By: #### L IPA, CMP, CRP, NAT #### [facility] [address] [address] [address] Keturah Fisher Chloride [Moles/Vol] 104 mmol/L Normal 98-107 [facility] Comment on above: Performed By: #### L IPA, CMP, CRP, NAT #### [facility] [address] [place] [address] Dr. Keturah Fisher CO2 [Moles/Vol] 26.7 mmol/L Normal 21.0-32.0 [facility] Comment on above: Performed By: #### L IPA, CMP, CRP, NAT #### [facility] [address] [address] [address] Keturah Fisher Creatinine [Mass/Vol] 0.83 mg/dL Normal 0.55-1.02 [facility] Comment on above: Performed By: #### L IPA, CMP, CRP, NAT #### [facility] [address] [address] [address] Keturah Fisher EGFR-AF [place] >60 Normal >=60 [facility] Comment on above: Performed By: #### L IPA, CMP, CRP, NAT #### [facility] [address] [place] [address] Dr. Keturah Fisher EGFR-NON AF [place] >60 Normal >=60 [facility] Comment on above: Performed By: #### L IPA, CMP, CRP, NAT #### [facility] [address] [place] [address] Dr. Keturah Fisher Globulin (S) [Mass/Vol] 3.4 g/dL Normal [facility] Comment on above: Performed By: #### L IPA, CMP, CRP, NAT #### [facility] [address] [place] [address] Dr. Keturah Fisher Glucose [Mass/Vol] 115 mg/dL Critically high 74-106 [facility] Comment on above: Performed By: #### L IPA, CMP, CRP, NAT #### [facility] [address] [place] [address] Dr. Keturah Fisher Potassium [Moles/Vol] 3.4 mmol/L Critically low 3.5-5.1 [facility] Comment on above: Performed By: #### L IPA, CMP, CRP, NAT #### [facility] [address] [place] [address] Dr. Keturah Fisher Protein [Mass/Vol] 7.0 g/dL Normal 6.4-8.2 [facility] Comment on above: Performed By: #### L IPA, CMP, CRP, NAT #### [facility] [address] [place] [address] Dr. Keturah Fisher Sodium [Moles/Vol] 141 mmol/L Normal 136-145 [facility] Comment on above: Performed By: #### L IPA, CMP, CRP, NAT #### [facility] [address] [address] [address] Keturah Fisher Urea nitrogen [Mass/Vol] 9.0 mg/dL Normal 7.0-18.0 [facility] Comment on above: Performed By: #### L IPA, CMP, CRP, NAT #### [facility] [address] [address] [address] Keturah Fisher Urea nitrogen/Creatinine [Mass ratio] 10.8 mg/mg Normal [facility] Comment on above: Performed By: #### L IPA, CMP, CRP, NAT #### [facility] [address] [address] [address] Keturah Fisher XR ABD FLAT UP_PA [...] ION KRUSE Date: 2022-06-13 17:10 Normal [facility] AMYLASEon 03-29-2022 Amylase [Catalytic activity/Vol] 141 U/L Critically high 25-115 [facility] Comment on above: Performed By: #### L IVER, LIPA, BMP, NAT ####[facility] [address] [address]Dr. Keturah Fisher CBC AUTO DIFFon 03-29-2022 BASO # 0.1 103/ul Normal 0.0-0.1 [facility] Comment on above: Performed By: #### L IPA, CMP, CRP, NAT #### [facility] [address] [place] [address] Dr. Keturah Fisher Basophils/100 WBC (Bld) 0.6 % Normal 0.2-2.0 [facility] Comment on above: Performed By: #### L IPA, CMP, CRP, NAT #### [facility] [address] [place] [address] Dr. Keturah Fisher EO # 0.1 103/ul Normal 0.0-0.7 [facility] Comment on above: Performed By: #### L IPA, CMP, CRP, NAT #### [facility] [address] [place] [address] Dr. Keturah Fisher Eosinophils/100 WBC (Bld) 0.7 % Critically low 0.9-7.0 [facility] Comment on above: Performed By: #### L IPA, CMP, CRP, NAT #### [facility] [address] [place] [address] Dr. Keturah Fisher Erythrocyte distribution width (RBC) [Ratio] 12.9 % Normal 11.0-15.0 [facility] Comment on above: Performed By: #### L IPA, CMP, CRP, NAT #### [facility] [address] [place] [address] Dr. Keturah Fisher Hematocrit (Bld) [Volume fraction] 39.7 % Normal 36.0-48.0 [facility] Comment on above: Performed By: #### L IPA, CMP, CRP, NAT #### [facility] [address] [place] [address] Dr. Keturah Fisher Hemoglobin (Bld) [Mass/Vol] 14.7 g/dL Normal 12.0-16.0 [facility] Comment on above: Performed By: #### L IPA, CMP, CRP, NAT #### [facility] [address] [place] [address] Dr. Keturah Fisher IG # 0.04 10e3/ul Critically high 0.00-0.03 [facility] Comment on above: Performed By: #### L IPA, CMP, CRP, NAT #### [facility] [address] [place] [address] Dr. Keturah Fisher IG % 0.4 % Normal 0.0-0.5 [facility] Comment on above: Performed By: #### L IPA, CMP, CRP, NAT #### [facility] [address] [place] [address] Dr. Keturah Fisher LYMPH # 2.1 103/ul Normal 1.2-3.8 [facility] Comment on above: Performed By: #### L IPA, CMP, CRP, NAT #### [facility] [address] [place] [address] Dr. Keturah Fisher Lymphocytes/100 WBC (Bld) 21.2 % Normal 20.5-60.0 [facility] Comment on above: Performed By: #### L IPA, CMP, CRP, NAT #### [facility] [address] [place] [address] Dr. Keutrah Fisher MANUAL DIFF REQ NO Normal [facility] Comment on above: Performed By: #### L IPA, CMP, CRP, NAT #### [facility] [address] [place] [address] Dr. Keturah Fisher MCH (RBC) [Entitic mass] 33.0 pg Normal 26.7-34.0 [facility] Comment on above: Performed By: #### L IPA, CMP, CRP, NAT #### [facility] [address] [place] [address] Dr. Keturah Fisher MCHC (RBC) [Mass/Vol] 37.0 g/dL Critically high 29.9-35.2 [facility] Comment on above: Performed By: #### L IPA, CMP, CRP, NAT #### [facility] [address] [place] [address] Dr. Keturah Fisher MCV (RBC) [Entitic vol] 89.0 fL Normal 81.0-99.0 [facility] Comment on above: Performed By: #### L IPA, CMP, CRP, NAT #### [facility] [address] [place] [address] Dr. Keturah Fisher MONO # 1.0 103/ul Critically high 0.3-0.8 [facility] Comment on above: Performed By: #### L IPA, CMP, CRP, NAT #### [facility] [address] [place] [address] Dr. Keturah Fisher Monocytes/100 WBC (Bld) 10.3 % Normal 1.7-12.0 [facility] Comment on above: Performed By: #### L IPA, CMP, CRP, NAT #### [facility] [address] [place] [address] Dr. Keturah Fisher NEUT # 6.5 103/ul Normal 1.4-6.5 [facility] Comment on above: Performed By: #### L IPA, CMP, CRP, NAT #### [facility] [address] [place] [address] Dr. Keturah Fisher Neutrophils/100 WBC (Bld) 66.8 % Normal 43.0-75.0 [facility] Comment on above: Performed By: #### L IPA, CMP, CRP, NAT #### [facility] [address] [place] [address] Dr. Keturah Fisher Platelet mean volume (Bld) [Entitic vol] 9.2 fL Critically low 9.5-13.5 [facility] Comment on above: Performed By: #### L IPA, CMP, CRP, NAT #### [facility] [address] [place] [address] Dr. Keturah Fisher PLT 229 103/ul Normal 150-450 [facility] Comment on above: Performed By: #### L IPA, CMP, CRP, NAT #### [facility] [address] [place] [address] Dr. Keturah Fisher RBC 4.46 106/ul Normal 4.20-5.40 [facility] Comment on above: Performed By: #### L IPA, CMP, CRP, NAT #### [facility] [address] [place] [address] Dr. Keturah Fisher WBC 9.7 103/ul Normal 4.0-11.0 [facility] Comment on above: Performed By: #### L IPA, CMP, CRP, NAT #### [facility] [address] [place] [address] Dr. Keturah Fisher LACTATE/LACTIC ACIDon 01-21- 2023 Lactate [Moles/Vol] 0.5 mmol/L Normal 0.4-1.9 [facility] Comment on above: Performed By: #### L IPA, CMP, CRP, NAT #### [facility] [address] [address] [address]Gopal Fisher LIPASEon 03-29-2022 Lipase [Catalytic activity/Vol] 308.0 U/L Normal 73.0-393.0 [facility] Comment on above: Performed By: #### L IVER, LIPA, BMP, NAT ####[facility] [address] [address]Dr. Keturah Fisher LIVER PROFILEon 03-29-2022 Albumin [Mass/Vol] 3.3 g/dL Critically low 3.4-5.0 [facility] Comment on above: Performed By: #### L IVER, LIPA, BMP, NAT ####[facility] [address] [address]Dr. Keturah Fisher Albumin/Globulin [Mass ratio] 0.8 {ratio} Normal [facility] Comment on above: Performed By: #### L IVER, LIPA, BMP, NAT ####[facility] [address] [address]Dr. Keturah Fisher ALP [Catalytic activity/Vol] 182 U/L Critically high 46-116 [facility] Comment on above: Performed By: #### L IVER, LIPA, BMP, NAT ####[facility] [address] [address]Dr. Keturah Fisher ALT [Catalytic activity/Vol] 16 U/L Normal 14-59 [facility] Comment on above: Performed By: #### L IVER, LIPA, BMP, NAT ####[facility] [address] [address]Dr. Keturah Fisher AST [Catalytic activity/Vol] 26 U/L Normal 15-37 [facility] Comment on above: Performed By: #### L IVER, LIPA, BMP, NAT ####[facility] [address] [place], [place] [address]Dr. Keturah Fisher BILI, CONJUGATED 0.0 mg/dL Normal 0.0-0.2 [facility] Comment on above: Performed By: #### L IVER, LIPA, BMP, NAT ####[facility] [address] [place], [place] [address]Dr. Keturah Fisher Bilirubin [Mass/Vol] 0.3 mg/dL Normal 0.2-1.0 [facility] Comment on above: Performed By: #### L IVER, LIPA, BMP, NAT ####[facility] [address] [place], [place] [address]Dr. Keturah Fisher Globulin (S) [Mass/Vol] 3.9 g/dL Normal [facility] Comment on above: Performed By: #### L IVER, LIPA, BMP, NAT ####[facility] [address] [place], [place] [address]Dr. Keturah Fisher Protein [Mass/Vol] 7.2 g/dL Normal 6.4-8.2 [facility] Comment on above: Performed By: #### L IVER, LIPA, BMP, NAT ####[facility] [address] [place], [place] [address]Dr. Keturah Fisher PROF CHEM 8 (BAS METB)on Anion gap [Moles/Vol] 14.6 mmol/L Normal [facility] Comment on above: Performed By: #### L IVER, LIPA, BMP, NAT ####[facility] [address] [place], [place] [address]Dr. Keturah Fisher Calcium [Mass/Vol] 10.1 mg/dL Normal 8.5-10.1 [facility] Comment on above: Performed By: #### L IVER, LIPA, BMP, NAT ####[facility] [address] [place], [place] [address]Dr. Keturah Fisher Chloride [Moles/Vol] 104 mmol/L Normal 98-107 [facility] Comment on above: Performed By: #### L IVER, LIPA, BMP, NAT ####[facility] [address] [address]Dr. Keturah Fisher CO2 [Moles/Vol] 24.8 mmol/L Normal 21.0-32.0 [facility] Comment on above: Performed By: #### L IVER, LIPA, BMP, NAT ####[facility] [address] [address]Dr. Keturah Fisher Creatinine [Mass/Vol] 0.61 mg/dL Normal 0.55-1.02 [facility] Comment on above: Performed By: #### L IVER, LIPA, BMP, NAT ####[facility] [address] [place], [place] [address]Dr. Keturah Fisher EGFR-AF [place] >60 Normal >=60 [facility] Comment on above: Performed By: #### L IVER, LIPA, BMP, NAT ####[facility] [id number] [place], [place] [address]Dr. Elisaeli Fisher EGFR-NON AF [place] >60 Normal >=60 [facility] Comment on above: Performed By: #### L IVER, LIPA, BMP, NAT ####[facility] [id number] [place], [place] [address]Dr. Keturah Fisher Glucose [Mass/Vol] 98 mg/dL Normal 74-106 [facility] Comment on above: Performed By: #### L IVER, LIPA, BMP, NAT ####[facility] [id number] [place], [place] [address]Dr. Keturah Fisher Potassium [Moles/Vol] 4.4 mmol/L Normal 3.5-5.1 [facility] Comment on above: Performed By: #### L IVER, LIPA, BMP, NAT ####[facility] [address] [place], [place] [address]Dr. Elisaeli Fisher Sodium [Moles/Vol] 139 mmol/L Normal 136-145 [facility] Comment on above: Performed By: #### L IVER, LIPA, BMP, NAT ####[facility] [address] [address]Dr. Keturah Fisher Urea nitrogen [Mass/Vol] 7.0 mg/dL Normal 7.0-18.0 [facility] Comment on above: Performed By: #### L ROB CHIN BMP, NAT ####[facility] [id number] [place], [place] [address]Nq. Keturah Fisher Urea nitrogen/Creatinine [Mass ratio] 11.5 mg/mg Normal [facility] Comment on above: Performed By: #### L ROB CHIN BMP, NAT ####[facility] [address] [place], [place] [address]Wq. Keturah Fisher Albumin [Mass/volume] in Ser um or PlasmaOrdered By: Agustin Llanes on 03-22-2022 Albumin [Mass/Vol] 4.1 g/dL 3.2-5.5 [facility] Automated erythrocytes count in urine sediment (number/area)Ordered By: Agustin Llanes on 03-22-2022 RBC Auto (Urine sed) [#/Area] 3-4 [HPF] 0-4 [facility] Automated leukocytes count i n urine sediment (number/area)Ordered By: Agustin Llanes on 03-22-2022 WBC Auto (Urine sed) [#/Area] 10-19 [HPF] 0-4 [facility] Basophils Auto (Bld) [#/Vol] Ordered By: Agustin Llanes on 03-22-2022 Basophils (Bld) [#/Vol] 0.1 10*3/uL 0.0-0.2 [facility] Basophils/100 WBC Auto (Bld) Ordered By: Agustin Llanes on 03-22-2022 Basophils/100 WBC (Bld) 0.9 % . [facility] Bilirubin Test strip Ql (U)O rdered By: Agustin Llanes on 03-22-2022 Bilirubin Ql (U) Negative Negative [facility] Color Auto (U)Ordered By: Vita Llanes on 03-22-2022 Color (U) Yellow Yellow [facility] Creatinine and Glomerular fi ltration rate.predicted panel (S/P/Bld)Ordered By: Agustin Llanes on 03-22-2022 Creatinine [Mass/Vol] 0.74 mg/dL 0.44-1.[address] [facility] Direct bilirubin measurement Ordered By: Agustin Llanes on 03-22-2022 Bilirubin.direct [Mass/Vol] 0.3 mg/dL 0.0-0.4 [facility] Eosinophils Auto (Bld) [#/Vo l]Ordered By: Agustin Llanes on 03-22-2022 Eosinophils (Bld) [#/Vol] 0.1 10*3/uL 0.0-0.45 [facility] Eosinophils/100 WBC Auto (Bl d)Ordered By: Agustin Llanes on 03-22-2022 Eosinophils/100 WBC (Bld) 0.7 % . [facility] Erythrocyte distribution wid th Auto (RBC) [Ratio]Ordered By: Agustin Llanes on 03-22-2022 Erythrocyte distribution width (RBC) [Ratio] 13.9 % 11.9-15.3 [facility] Estimated glomerular filtrat ion rate (GFR) non- AmericanOrdered By: Agustin Llanes on 03-22-2022 GFR/1.73 sq M.predicted among non-blacks MDRD (S/P/Bld) [Vol rate/Area] > 60 mL/Min [facility] Globulin Calc (S) [Mass/Vol] Ordered By: Agustin Llanes on 03-22-2022 Globulin (S) [Mass/Vol] 3.1 g/dL [facility] HCG ( test) IA.rapi d Ql (U)Ordered By: Agustin Llanes on 03-22-2022 HCG ( test) Ql (U) Negative [facility] Hematocrit Auto (Bld) [Volum e fraction]Ordered By: Agustin Llanes on 03-22-2022 Hematocrit (Bld) [Volume fraction] 45.7 % 34.0-46.4 [facility] Hemoglobin [Mass/volume] in BloodOrdered By: Agustin Llanes on 03-22-2022 Hemoglobin (Bld) [Mass/Vol] 15.2 g/dL 11.8-15.4 [facility] Ketones Auto test strip (U) [Mass/Vol]Ordered By: Agustin Llanes on 03-22-2022 Ketones (U) [Mass/Vol] Negative Negative [facility] Laboratory - Chemistry and C hemistry - challengeOrdered By: Agustin Llanes on 03-22-2022 Lipase [Catalytic activity/Vol] 122.0 U/L 22-51 [facility] Laboratory - UrinalysisOrder ed By: Agustin Llanes on 03-22-2022 Hyaline casts LM Ql (Urine sed) 0-8 [LPF] 0-8 [facility] Leukocytes [#/volume] correc aurelia for nucleated erythrocytes in Blood by Automated counOrdered By: Agustin Llanes on 03-22-2022 WBC corrected for nucl RBC Auto (Bld) [#/Vol] 12.4 10*3/uL 3.8-11.6 [facility] Lymphocytes Auto (Bld) [#/Vo l]Ordered By: Agustin Llanes on 03-22-2022 Lymphocytes (Bld) [#/Vol] 2.2 10*3/uL 1.00-4.8 [facility] Lymphocytes/100 WBC Auto (Bl d)Ordered By: Agustin Llanes on 03-22-2022 Lymphocytes/100 WBC (Bld) 18.0 % . [facility] MCH Auto (RBC) [Entitic mass ]Ordered By: Agustin Llanes on 03-22-2022 MCH (RBC) [Entitic mass] 32.5 pg 24.7-34.3 [facility] MCHC Auto (RBC) [Mass/Vol]Or dered By: Agustin Llanes on 03-22-2022 MCHC (RBC) [Mass/Vol] 33.2 g/dL 32.0-35.[address] [facility] MCV Auto (RBC) [Entitic vol] Ordered By: Agustin Llanes on 03-22-2022 MCV (RBC) [Entitic vol] 98.0 fL 80-100 [facility] Monocyte distribution width [Entitic volume] in Blood by AutomatedOrdered By: Agustin Llanes on 03-22-2022 Monocyte distribution width Auto (Bld) [Entitic vol] 18.78 % 0.00-20.00 [facility] Monocytes Auto (Bld) [#/Vol] Ordered By: Agustin Llanes on 03-22-2022 Monocytes (Bld) [#/Vol] 1.0 10*3/uL 0.0-0.8 [facility] Monocytes/100 WBC Auto (Bld) Ordered By: Agustin Llanes on 03-22-2022 Monocytes/100 WBC (Bld) 8.0 % . [facility] Neutrophils Auto (Bld) [#/Vo l]Ordered By: Agustin Llanes on 03-22-2022 Neutrophils (Bld) [#/Vol] 9.0 10*3/uL 1.8-7.7 [facility] Neutrophils/100 WBC Auto (Bl d)Ordered By: Agustin Llanes on 03-22-2022 Neutrophils/100 WBC (Bld) 72.4 % . [facility] Nitrite Test strip Ql (U)Ord ered By: Agustin Llanes on 03-22-2022 Nitrite Ql (U) Positive Negative [facility] No Panel InformationOrdered By: Agustin Llanes on 03-22-2022 Estimated GFR () > 60 mL/Min [facility] Comment on above: GFR estimated refere nce range: According to KDOQI guidelines, <60 ml/min/1.73m2 is sufficient to diagnose a patient with chronic kidney disease. Pharmacy Creatinine Clearance (Chem 70.34 [facility] Nucleated erythrocytes [Pres ence] in Blood by Automated countOrdered By: Agustin Llanes on 03-22-2022 Nucleated RBC Auto Ql (Bld) 0.0 /100{WBC} 0-0.5 [facility] Platelet mean volume Auto (B ld) [Entitic vol]Ordered By: Agustin Llanes on 03-22-2022 Platelet mean volume (Bld) [Entitic vol] 8.0 fL 6.3-10.7 [facility] Platelets Auto (Bld) [#/Vol] Ordered By: Agustin Llanes on 03-22-2022 Platelets (Bld) [#/Vol] 266 10*3/uL 150-450 [facility] Protein Auto test strip (U) [Mass/Vol]Ordered By: Agustin Llanes on 03-22-2022 Protein (U) [Mass/Vol] Negative Negative [facility] Protein [Mass/volume] in Ser um or PlasmaOrdered By: Agustin Llanes on 03-22-2022 Protein [Mass/Vol] 7.2 g/dL 6.1-7.9 [facility] RBC Auto (Bld) [#/Vol]Ordere d By: Agustin Llanes on 03-22-2022 RBC (Bld) [#/Vol] 4.67 10*6/uL 3.60-5.00 [facility] Serum or plasma alanine hughes otransferase measurement without P-5'-P (enzymatic activiOrdered By: Agustin Llanes on 03-22-2022 ALT No additional P-5'-P [Catalytic activity/Vol] 19 U/L 10-60 [facility] Serum or plasma albumin/glob ulin mass ratioOrdered By: Agustin Llanes on 03-22-2022 Albumin/Globulin [Mass ratio] 1.3 {ratio} [facility] Serum or plasma alkaline jaqueline sphatase measurement (enzymatic activity/volume)Ordered By: Agustin Llanes on 03-22-2022 ALP [Catalytic activity/Vol] 156 U/L 32-92 [facility] Serum or plasma anion gap de terminationOrdered By: Agustin Llanes on 03-22-2022 Anion gap [Moles/Vol] 12.6 mmol/L 6.0-15.0 [facility] Serum or plasma aspartate am inotransferase measurement (enzymatic activity/volume)Ordered By: Agustin Llanes on 03-22-2022 AST [Catalytic activity/Vol] 29 U/L 10-42 [facility] Serum or plasma calcium priscilla urement (mass/volume)Ordered By: Agustin Llanes on 03-22-2022 Calcium [Mass/Vol] 9.9 mg/dL 8.2-10.2 [facility] Serum or plasma chloride daron surement (moles/volume)Ordered By: Agustin Llanes on 03-22-2022 Chloride [Moles/Vol] 103 mmol/L 95-114 [facility] Serum or plasma glucose priscilla [...] 03-22-2022 Bilirubin.indirect [Mass/Vol] 0.2 mg/dL [facility] Serum or plasma potassium me asurement (moles/volume)Ordered By: Agustin Llanes on 03-22-2022 Potassium [Moles/Vol] 4.5 mmol/L 3.5-5.[address] [facility] Serum or plasma sodium measu rement (moles/volume)Ordered By: Agustin Llanes on 03-22-2022 Sodium [Moles/Vol] 138 mmol/L 136-146 [facility] Serum or plasma total biliru bin measurement (mass/volume)Ordered By: Agustin Llanes on 03-22-2022 Bilirubin [Mass/Vol] 0.5 mg/dL 0.3-1.2 [facility] Serum or plasma total carbon dioxide measurement (moles/volume)Ordered By: Agsutin Llanes on 03-22-2022 CO2 [Moles/Vol] 26.9 mmol/L 22.0-30.0 [facility] Serum or plasma urea nitroge n measurement (mass/volume)Ordered By: Agustin Llanes on 03-22-2022 Urea nitrogen [Mass/Vol] 8 mg/dL 9-23 [facility] Specific gravity Auto test s trip (U) [Rel density]Ordered By: Agustin Llanes on 03-22-2022 Specific gravity (U) [Rel density] 1.011 1.001-1.03 0 [facility] Squamous epithelial cells de tection in urine sediment by light microscopyOrdered By: Agustin Llanes on 03-22-2022 Epithelial cells.squamous LM Ql (Urine sed) 1-2 [HPF] 0-2 [facility] Urine bacteria detection by automated methodOrdered By: Agustin Llanes on 03-22-2022 Bacteria Auto Ql (U) 1+ None Seen [facility] Urine clarity by refractomet ry automatedOrdered By: Agustin Llanes on 03-22-2022 Clarity Refractometry automated (U) Clear Clear [facility] Urine glucose measurement by automated test strip (mass/volume)Ordered By: Agustin Llanes on 03-22-2022 Glucose Auto test strip (U) [Mass/Vol] Normal mg/dL Normal [facility] Urine hemoglobin detection b y automated test stripOrdered By: Agustin Llanes on 03-22-2022 Hemoglobin Auto test strip Ql (U) Negative Negative [facility] Urine leukocyte esterase det ection by automated test stripOrdered By: Agustin Llanes on 03-22-2022 Leukocyte esterase Auto test strip Ql (U) 2+ Negative [facility] Urobilinogen Auto test strip (U) [Mass/Vol]Ordered By: Agustin Llanes on 03-22-2022 Urobilinogen (U) [Mass/Vol] Normal mg/dL Normal [facility] WBC Auto (Bld) [#/Vol]Ordere d By: Agustin Llanes on 03-22-2022 WBC (Bld) [#/Vol] 12.4 10*3/uL 3.8-11.6 [facility] pH Auto test strip (U)Ordere d By: Agustin Llanes on 03-22-2022 pH (U) 5.5 [pH] 5.0-9.0 [facility] AMYLASEon 03-19-2022 Amylase [Catalytic activity/Vol] 297 U/L Critically high 25-115 [facility] Comment on above: Performed By: #### L IPA, CMP, CRP, NAT #### [facility] [address] [place] [address] Dr. Keturah Fisher CBC AUTO DIFFon 03-19-2022 BASO # 0.1 103/ul Normal 0.0-0.1 [facility] Comment on above: Performed By: #### L IPA, CMP, CRP, NAT #### [facility] [address] [place] [address] Dr. Keturah Fisher Basophils/100 WBC (Bld) 0.6 % Normal 0.2-2.0 [facility] Comment on above: Performed By: #### L IPA, CMP, CRP, NAT #### [facility] [address] [place] [address] Dr. Keturah Fisher EO # 0.1 103/ul Normal 0.0-0.7 [facility] Comment on above: Performed By: #### L IPA, CMP, CRP, NAT #### [facility] [address] [place] [address] Dr. Keturah Fisher Eosinophils/100 WBC (Bld) 0.5 % Critically low 0.9-7.0 [facility] Comment on above: Performed By: #### L IPA, CMP, CRP, NAT #### [facility] [address] [place] [address] Dr. Keturah Fisher Erythrocyte distribution width (RBC) [Ratio] 13.4 % Normal 11.0-15.0 [facility] Comment on above: Performed By: #### L IPA, CMP, CRP, NAT #### [facility] [address] [place] [address] Dr. Keturah Fisher Hemoglobin (Bld) [Mass/Vol] 15.7 g/dL Normal 12.0-16.0 [facility] Comment on above: Performed By: #### L IPA, CMP, CRP, NAT #### [facility] [address] [place] [address] Dr. Keturah Fisher IG # 0.06 10e3/ul Critically high 0.00-0.03 [facility] Comment on above: Performed By: #### L IPA, CMP, CRP, NAT #### [facility] [address] [place] [address] Dr. Keturah Fisher IG % 0.4 % Normal 0.0-0.5 [facility] Comment on above: Performed By: #### L IPA, CMP, CRP, NAT #### [facility] [address] [place] [address] Dr. Keturah Fisher LYMPH # 2.6 103/ul Normal 1.2-3.8 [facility] Comment on above: Performed By: #### L IPA, CMP, CRP, NAT #### [facility] [address] [place] [address] Dr. Keturah Fisher Lymphocytes/100 WBC (Bld) 18.1 % Critically low 20.5-60.0 [facility] Comment on above: Performed By: #### L IPA, CMP, CRP, NAT #### [facility] [address] [place] [address] Dr. Keturah Fisher MANUAL DIFF REQ NO Normal [facility] Comment on above: Performed By: #### L IPA, CMP, CRP, NAT #### [facility] [address] [place] [address] Dr. Keturah Fisher MCH (RBC) [Entitic mass] 32.4 pg Normal 26.7-34.0 [facility] Comment on above: Performed By: #### L IPA, CMP, CRP, NAT #### [facility] [address] [place] [address] Dr. Keturah Fisher MCHC (RBC) [Mass/Vol] 32.5 g/dL Normal 29.9-35.2 [facility] Comment on above: Performed By: #### L IPA, CMP, CRP, NAT #### [facility] [address] [address] [address] Keturah Fisher MCV (RBC) [Entitic vol] 99.8 fL Critically high 81.0-99.0 [facility] Comment on above: Performed By: #### L IPA, CMP, CRP, NAT #### [facility] [address] [place] [address] Dr. Keturah Fisher MONO # 0.9 103/ul Critically high 0.3-0.8 [facility] Comment on above: Performed By: #### L IPA, CMP, CRP, NAT #### [facility] [address] [place] [address] Dr. Keturah Fisher Monocytes/100 WBC (Bld) 5.9 % Normal 1.7-12.0 [facility] Comment on above: Performed By: #### L IPA, CMP, CRP, NAT #### [facility] [address] [place] [address] Dr. Keturah Fisher NEUT # 10.8 103/ul Critically high 1.4-6.5 [facility] Comment on above: Performed By: #### L IPA, CMP, CRP, NAT #### [facility] [address] [place] [address] Dr. Keturah Fisher Neutrophils/100 WBC (Bld) 74.5 % Normal 43.0-75.0 [facility] Comment on above: Performed By: #### L IPA, CMP, CRP, NAT #### [facility] [address] [place] [address] Dr. Keturah Fisher Platelet mean volume (Bld) [Entitic vol] 9.7 fL Normal 9.5-13.5 [facility] Comment on above: Performed By: #### L IPA, CMP, CRP, NAT #### [facility] [address] [place], [place] [address] Dr. Keturah Fisher PLT 279 103/ul Normal 150-450 [facility] Comment on above: Performed By: #### L IPA, CMP, CRP, NAT #### [facility] [address] [place], [place] [address] Dr. Keturah Fisher RBC 4.84 106/ul Normal 4.20-5.40 [facility] Comment on above: Performed By: #### L IPA, CMP, CRP, NAT #### [facility] [address] [place], [place] [address] Dr. Keturah Fisher WBC 14.5 103/ul Critically high 4.0-11.0 [facility] Comment on above: Performed By: #### L IPA, CMP, CRP, NAT #### [facility] [address] [place], [place] [address] ABD/PELVIS WO CONon [...] #### L IPA, CMP, CRP, NAT #### [facility] [address] [address] [address] Keturah Fisher PROF 14(COMP METB)on 023 Albumin [Mass/Vol] 4.3 g/dL Normal 3.4-5.0 [facility] Comment on above: Performed By: #### L IPA, CMP, CRP, NAT #### [facility] [address] [address] [address] Keturah Fisher Albumin/Globulin [Mass ratio] 1.1 {ratio} Normal [facility] Comment on above: Performed By: #### L IPA, CMP, CRP, NAT #### [facility] [address] [address] [address] Keturah Fisher ALP [Catalytic activity/Vol] 222 U/L Critically high 46-116 [facility] Comment on above: Performed By: #### L IPA, CMP, CRP, NAT #### [facility] [address] [address] [address] Keturah Fisher ALT [Catalytic activity/Vol] 18 U/L Normal 14-59 [facility] Comment on above: Performed By: #### L IPA, CMP, CRP, NAT #### [facility] [address] [place] [address] Dr. Keturah Fisher Anion gap [Moles/Vol] 10.7 mmol/L Normal Th e [facility] Comment on above: Performed By: #### L IPA, CMP, CRP, NAT #### [facility] [address] [place] [address] Dr. Keturah Fisher AST [Catalytic activity/Vol] 19 U/L Normal 15-37 [facility] Comment on above: Performed By: #### L IPA, CMP, CRP, NAT #### [facility] [address] [place] [address] Dr. Keturah Fisher Bilirubin [Mass/Vol] 0.2 mg/dL Normal 0.2-1.0 [facility] Comment on above: Performed By: #### L IPA, CMP, CRP, NAT #### [facility] [address] [place] [address] Dr. Keturah Fisher Calcium [Mass/Vol] 10.2 mg/dL Critically high 8.5-10.1 [facility] Comment on above: Performed By: #### L IPA, CMP, CRP, NAT #### [facility] [address] [place] [address] Dr. Keturah Fisher Chloride [Moles/Vol] 101 mmol/L Normal 98-107 [facility] Comment on above: Performed By: #### L IPA, CMP, CRP, NAT #### [facility] [address] [place] [address] Dr. Keturah Fisher CO2 [Moles/Vol] 29.1 mmol/L Normal 21.0-32.0 [facility] Comment on above: Performed By: #### L IPA, CMP, CRP, NAT #### [facility] [address] [place] [address] Dr. Keturah Fisher Creatinine [Mass/Vol] 0.73 mg/dL Normal 0.55-1.02 [facility] Comment on above: Performed By: #### L IPA, CMP, CRP, NAT #### [facility] [address] [address] [address] Keturah Fisher EGFR-AF [place] >60 Normal >=60 [facility] Comment on above: Performed By: #### L IPA, CMP, CRP, NAT #### [facility] [address] [place] [address] [address] Keturah Fisher EGFR-NON AF [place] >60 Normal >=60 [facility] Comment on above: Performed By: #### L IPA, CMP, CRP, NAT #### [facility] [address] [place] [address] [address] Keturah Fisher Globulin (S) [Mass/Vol] 4.0 g/dL Normal [facility] Comment on above: Performed By: #### L IPA, CMP, CRP, NAT #### [facility] [address] [address] [address] Keturah Fisher Glucose [Mass/Vol] 92 mg/dL Normal 74-106 [facility] Comment on above: Performed By: #### L IPA, CMP, CRP, NAT #### [facility] [address] [address] [address] Keturah Fisher Potassium [Moles/Vol] 3.8 mmol/L Normal 3.5-5.1 [facility] Comment on above: Performed By: #### L IPA, CMP, CRP, NAT #### [facility] [address] [address] [address] Keturah Fisher Protein [Mass/Vol] 8.3 g/dL Critically high 6.4-8.2 [facility] Comment on above: Performed By: #### L IPA, CMP, CRP, NAT #### [facility] [address] [address] [address] Keturah Fisher Sodium [Moles/Vol] 137 mmol/L Normal 136-145 [facility] Comment on above: Performed By: #### L IPA, CMP, CRP, NAT #### [facility] [address] [address] [address] Keturah Fisher Urea nitrogen [Mass/Vol] 10.0 mg/dL Normal 7.0-18.0 [facility] Comment on above: Performed By: #### L IPA, CMP, CRP, NAT #### [facility] [address] [address] [address] Keturah Fisher Urea nitrogen/Creatinine [Mass ratio] 13.7 mg/mg Normal [facility] Comment on above: Performed By: #### L IPA, CMP, CRP, NAT #### [facility] [address] [address] [address] Keturah Fisher PROTIMEon 03-19-2022 INR Coag (PPP) [Relative time] {INR} Normal [facility] Comment on above: Performed By: #### P TT, PT ####[facility] [address] [address]Dr. Keturah Fisher INR GUIDELINES SEE BELOW Normal [facility] Comment on above: Result Comment: KARLY RED INR: 2.0 - 3.0 CONDITIONS NOT LISTED BELOW 2.5 - 3.5 FOR PROSTHETIC HEART VALVE REPLACEMENT 2.5 - 3.5 RECURRENT THROMBOSIS Performed By: #### P TT, PT ####[facility] [address] [place] [address]Dr. Keturah Fisher PT Coag (PPP) [Time] 9.4 s Normal 9.0-11.6 [facility] Comment on above: Performed By: #### P TT, PT ####[facility] [address] [place] [address]Dr. Keturah Fisher PTTon 03-19-2022 aPTT Coag (Bld) [Time] 26.1 s Normal 22.3-36.2 [facility] Comment on above: Performed By: #### P TT, PT ####[facility] [address] [place] [address]Dr. Keturah Fisher TROPONIN, HIGH SENSITIVITYon 03-19-2022 HSTROP 4.0 pg/mL Normal 4.0-51.3 [facility] Comment on above: Result Comment: CUT- OFF POINTS HAVE BEEN ESTABLISHED BASED ON THE FOURTH UNIVERSAL DEFINITIONS OF MYOCARDIAL INFARCTION. THE UPPER REFERENCE LIMIT (URL) OF TROPONIN, DEFINED THE 99TH PERCENTILE OF cTnI DISTRIBUTION IN A REFERENCE POPULATION, HAS BEEN CONFIRMED THE DECISION THRESHOLD FOR SD DIAGNOSIS. Performed By: #### L IPA, CMP, CRP, NAT #### [facility] [address] [address] [address] 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 Mental Status [...] si (more content not included)... LAB, [facility] Radiology Study observation (narrative) [facility] BONE DENSITY AXIAL (HIP, PEL [...] interpreted this study is a Certified Clinical Manager Developmental by the International Society of Clinical Densitometry Maulik Reed M.D., CCD. OLOGY EXAM: BONE DENSITY A XIAL (HIP, PELVIS, SPINE) 01/27/2022 15:34 PM TECHNIQUE: DXA scanning using a [employer] bone densitometer at the [facility] was performed on 01/27/2022 15:34 [...] 15:34 PM TECHNIQUE: DXA scanning using a [employer] bone densitometer at the [facility] was performed on 01/27/2022 15:34 [...] interpreted this study is a Certified Clinical Manager Developmental by the International Society of Clinical Densitometry Maulik Reed M.D., CCD. [facility] Radiology Study observation (narrative) [facility] BONE DENSITY AXIAL (HIP, PEL VIS, SPINE)Ordered By: Maulik Reed on 01-27-2022 [facility] Work Phone: CBC AUTO DIFFon 01-15-2022 BASO # 0.1 103/ul Normal 0.0-0.1 [facility] Comment on above: Performed By: #### C BC ####[facility] [address] [address]Dr. Keturah Fisher Basophils/100 WBC (Bld) 0.9 % Normal 0.2-2.0 [facility] Comment on above: Performed By: #### C BC ####[facility] [address] [place], [place] [address]Dr. Keturah Phillip EO # 0.2 103/ul Normal 0.0-0.7 [facility] Comment on above: Performed By: #### C BC ####[facility] [address] [place], [place] [address]Dr. Keturah Phillip Eosinophils/100 WBC (Bld) 2.8 % Normal 0.9-7.0 [facility] Comment on above: Performed By: #### C BC ####[facility] [address] [place], [place] [address]Dr. Keturah Phillip Erythrocyte distribution width (RBC) [Ratio] 12.9 % Normal 11.0-15.0 [facility] Comment on above: Performed By: #### C BC ####[facility] [address] [place], [place] [address]Dr. Keturah Fisher Hematocrit (Bld) [Volume fraction] 41.7 % Normal 36.0-48.0 [facility] Comment on above: Performed By: #### C BC ####[facility] [address] [place], [place] [address]Dr. Keturah Fisher Hemoglobin (Bld) [Mass/Vol] 14.0 g/dL Normal 12.0-16.0 [facility] Comment on above: Performed By: #### C BC ####[facility] [address] [place], [place] [address]Dr. Keturah Fisher IG # 0.01 10e3/ul Normal 0.00-0.03 [facility] Comment on above: Performed By: #### C BC ####[facility] [address] [place], [place] [address]Dr. Keturah Fisher IG % 0.1 % Normal 0.0-0.5 [facility] Comment on above: Performed By: #### C BC ####[facility] [address] [place] [address]DrGopal Fisher LYMPH # 2.4 103/ul Normal 1.2-3.8 [facility] Comment on above: Performed By: #### C BC ####[facility] [address] [place] [address]DrGopal Fisher Lymphocytes/100 WBC (Bld) 32.0 % Normal 20.5-60.0 [facility] Comment on above: Performed By: #### C BC ####[facility] [address] [place], [place] [address]DrGopal Fisher MANUAL DIFF REQ NO Normal [facility] Comment on above: Performed By: #### C BC ####[facility] [address] [place], [place] [address]Dr. Keturah Fisher MCH (RBC) [Entitic mass] 32.6 pg Normal 26.7-34.0 [facility] Comment on above: Performed By: #### C BC ####[facility] [address] [place], [place] [address]Dr. Elisaeli Fisher MCHC (RBC) [Mass/Vol] 33.6 g/dL Normal 29.9-35.2 [facility] Comment on above: Performed By: #### C BC ####[facility] [address] [place], [place] [address]DrGopal Fisher MCV (RBC) [Entitic vol] 97.0 fL Normal 81.0-99.0 [facility] Comment on above: Performed By: #### C BC ####[facility] [address] [place], [place] [address]DrGopal Fisher MONO # 0.7 103/ul Normal 0.3-0.8 [facility] Comment on above: Performed By: #### C BC ####[facility] [address] [place], [place] [address]Dr. Keturah Fisher Monocytes/100 WBC (Bld) 9.5 % Normal 1.7-12.0 [facility] Comment on above: Performed By: #### C BC ####[facility] [address] [address]DrGopal Pérezeli Fisher NEUT # 4.1 103/ul Normal 1.4-6.5 [facility] Comment on above: Performed By: #### C BC ####[facility] [address] [place] [address]DrGopal Fisher Neutrophils/100 WBC (Bld) 54.7 % Normal 43.0-75.0 [facility] Comment on above: Performed By: #### C BC ####[facility] [address] [place] [address]DrGopal Fisher Platelet mean volume (Bld) [Entitic vol] 9.6 fL Normal 9.5-13.5 [facility] Comment on above: Performed By: #### C BC ####[facility] [address] [place] [address]DrGopal Fisher PLT 235 103/ul Normal 150-450 [facility] Comment on above: Performed By: #### C BC ####[facility] [address] [place] [address]DrGopal Fisher RBC 4.30 106/ul Normal 4.20-5.40 [facility] Comment on above: Performed By: #### C BC ####[facility] [address] [place] [id number] Fisher WBC 7.6 103/ul Normal 4.0-11.0 [facility] Comment on above: Performed By: #### C BC ####[facility] [address] [place] [id number]. Keturah Fisher ER URINE PROFILEon 2 Bilirubin Ql (U) Negative Normal NEGATIVE [facility] Comment on above: Performed By: #### L IPA, CMP, CRP, NAT #### [facility] [address] [address] [address] Keturah Fisher Clarity (U) CLEAR Normal CLEAR [facility] Comment on above: Performed By: #### L IPA, CMP, CRP, NAT #### [facility] [address] [address] [address] Keturah Fisher Color (U) YELLOW Normal YELLOW [facility] Comment on above: Performed By: #### L IPA, CMP, CRP, NAT #### [facility] [address] [address] [address] Keturah Fisher ERUAHD A micrscopic examina tion will be performed if indicated. Normal [facility] Comment on above: Performed By: #### L IPA, CMP, CRP, NAT #### [facility] [address] [address] [address] Keturah Fisher Glucose Ql (U) Negative Normal NEGATIVE [facility] Comment on above: Performed By: #### L IPA, CMP, CRP, NAT #### [facility] [address] [address] [address] Keturah Fisher Hemoglobin Ql (U) Negative Normal NEGATIVE [facility] Comment on above: Performed By: #### L IPA, CMP, CRP, NAT #### [facility] [address] [address] [address] Keturah Fisher Ketones Ql (U) Negative Normal NEGATIVE [facility] Comment on above: Performed By: #### L IPA, CMP, CRP, NAT #### [facility] [address] [address] [address] Keturah Fisher LEUKOCYTES Negative Normal NEGATIVE [facility] Comment on above: Performed By: #### L IPA, CMP, CRP, NAT #### [facility] [address] [address] [address] Keturah Fisher Nitrite Ql (U) Negative Normal NEGATIVE [facility] Comment on above: Performed By: #### L IPA, CMP, CRP, NAT #### [facility] [address] [address] [address] Keturah Fisher pH (U) 5.5 [pH] Normal 5-9 [facility] Comment on above: Performed By: #### L IPA, CMP, CRP, NAT #### [facility] [address] [place] [address] Dr. Keturah Fisher SPEC GRAVITY >=1.030 Abnormal 1.005-<=1. [address]25 [facility] Comment on above: Performed By: #### L IPA, CMP, CRP, NAT #### [facility] [address] [address] [address] Keturah Fisher UA PROTEIN Negative Normal NEGATIVE/ TRACE [facility] Comment on above: Performed By: #### L IPA, CMP, CRP, NAT #### [facility] [address] [place] [address] Dr. Keturah Fisher UR MICRO IND NOT INDICATED Normal [facility] Comment on above: Performed By: #### L IPA, CMP, CRP, NAT #### [facility] [address] [place] [address] Dr. Keturah Fisher Urobilinogen Qn (U) 0.2 {Marizol'U}/dL Normal 0.2 - 1. [address] [facility] Comment on above: Performed By: #### L IPA, CMP, CRP, NAT #### [facility] [address] [place] [address] Dr. Keturah Fisher LIPASEon 01-15-2022 Lipase [Catalytic activity/Vol] 572.0 U/L Critically high 73.0-393.0 [facility] Comment on above: Performed By: #### C BC #### [facility] [address] [place] [address] Dr. Keturah Fisher URon 01-15-2022 , QUAL Negative Normal NEGATIVE [facility] Comment on above: Performed By: #### L IPA, CMP, CRP, NAT #### [facility] [address] [place] [address] Dr. Keturah Fisher PROF 14(COMP METB)on 022 Albumin [Mass/Vol] 3.8 g/dL Normal 3.4-5.0 [facility] Comment on above: Performed By: #### C BC #### [facility] [address] [place] [address] Dr. Keturah Fisher Albumin/Globulin [Mass ratio] 1.1 {ratio} Normal [facility] Comment on above: Performed By: #### C BC #### [facility] [address] [address] [address] Keturah Fisher ALP [Catalytic activity/Vol] 151 U/L Critically high 46-116 [facility] Comment on above: Performed By: #### C BC #### [facility] [address] [address] [address] Keturah Fisher ALT [Catalytic activity/Vol] 14 U/L Normal 14-59 [facility] Comment on above: Performed By: #### C BC #### [facility] [address] [address] [address] Keturah Fisher Anion gap [Moles/Vol] 5.5 mmol/L Normal [facility] Comment on above: Performed By: #### C BC #### [facility] [address] [place] [address] Dr. Keturah Fisher AST [Catalytic activity/Vol] 16 U/L Normal 15-37 [facility] Comment on above: Performed By: #### C BC #### [facility] [address] [address] [address] Keturah Fisher Bilirubin [Mass/Vol] 0.1 mg/dL Critically low 0.2-1.0 [facility] Comment on above: Performed By: #### C BC #### [facility] [address] [address] [address] Keturah Fisher Calcium [Mass/Vol] 9.5 mg/dL Normal 8.5-10.1 [facility] Comment on above: Performed By: #### C BC #### [facility] [address] [address] [address] Keturah Fisher Chloride [Moles/Vol] 105 mmol/L Normal 98-107 [facility] Comment on above: Performed By: #### C BC #### [facility] [address] [address] [address] Keturah Fisher CO2 [Moles/Vol] 30.0 mmol/L Normal 21.0-32.0 [facility] Comment on above: Performed By: #### C BC #### [facility] [address] [address] [address] Keturah Fisher Creatinine [Mass/Vol] 0.90 mg/dL Normal 0.55-1.02 [facility] Comment on above: Performed By: #### C BC #### [facility] [address] [address] [address] Keturah Fisher EGFR-AF [place] >60 Normal >=60 [facility] Comment on above: Performed By: #### C BC #### [facility] [address] [address] [address] Keturah Fisher EGFR-NON AF [place] >60 Normal >=60 [facility] Comment on above: Performed By: #### C BC #### [facility] [address] [place] [address] Dr. Keturah Fisher Globulin (S) [Mass/Vol] 3.4 g/dL Normal [facility] Comment on above: Performed By: #### C BC #### [facility] [address] [place] [address] Dr. Keturah Fisher Glucose [Mass/Vol] 82 mg/dL Normal 74-106 [facility] Comment on above: Performed By: #### C BC #### [facility] [address] [place] [address] Dr. Keturah Fisher Potassium [Moles/Vol] 3.5 mmol/L Normal 3.5-5.1 [facility] Comment on above: Performed By: #### C BC #### [facility] [address] [place] [address] Dr. Keturah Fisher Protein [Mass/Vol] 7.2 g/dL Normal 6.4-8.2 [facility] Comment on above: Performed By: #### C BC #### [facility] [address] [place] [address] Dr. Keturah Fisher Sodium [Moles/Vol] 137 mmol/L Normal 136-145 [facility] Comment on above: Performed By: #### C BC #### [facility] [address] [place] [address] Dr. Keturah Fisher Urea nitrogen [Mass/Vol] 12.0 mg/dL Normal 7.0-18.0 [facility] Comment on above: Performed By: #### C BC #### [facility] [address] [place] [address] Dr. Keturah Fisher Urea nitrogen/Creatinine [Mass ratio] 13.3 mg/mg Normal [facility] Comment on above: Performed By: #### C BC #### [facility] [address] [place] [address] Dr. Keturah Fisher AMYLASEon 12-13-2021 Amylase [Catalytic activity/Vol] 268 U/L Critically high 25-115 [facility] Comment on above: Performed By: #### L IPA, CMP, CRP, NAT #### [facility] [address] [place] [address] Dr. Keturah Fisher CBC AUTO DIFFon 12-13-2021 BASO # 0.1 103/ul Normal 0.0-0.1 [facility] Comment on above: Performed By: #### L IPA, CMP, CRP, NAT #### [facility] [address] [place] [address] Dr. Keturah Fisher Basophils/100 WBC (Bld) 0.6 % Normal 0.2-2.0 [facility] Comment on above: Performed By: #### L IPA, CMP, CRP, NAT #### [facility] [address] [place] [address] Dr. Keturah Fisher EO # 0.1 103/ul Normal 0.0-0.7 [facility] Comment on above: Performed By: #### L IPA, CMP, CRP, NAT #### [facility] [address] [place] [address] Dr. Keturah Fisher Eosinophils/100 WBC (Bld) 1.2 % Normal 0.9-7.0 [facility] Comment on above: Performed By: #### L IPA, CMP, CRP, NAT #### [facility] [address] [place] [address] Dr. Keturah Fisher Erythrocyte distribution width (RBC) [Ratio] 13.2 % Normal 11.0-15.0 [facility] Comment on above: Performed By: #### L IPA, CMP, CRP, NAT #### [facility] [address] [place] [address] Dr. Keturah Fisher Hematocrit (Bld) [Volume fraction] 44.7 % Normal 36.0-48.0 [facility] Comment on above: Performed By: #### L IPA, CMP, CRP, NAT #### [facility] [address] [place] [address] Dr. Keturah Fisher Hemoglobin (Bld) [Mass/Vol] 14.7 g/dL Normal 12.0-16.0 [facility] Comment on above: Performed By: #### L IPA, CMP, CRP, NAT #### [facility] [address] [place] [address] Dr. Keturah Fisher IG # 0.03 10e3/ul Normal 0.00-0.03 [facility] Comment on above: Performed By: #### L IPA, CMP, CRP, NAT #### [facility] [address] [place] [address] Dr. Keturah Fisher IG % 0.3 % Normal 0.0-0.5 [facility] Comment on above: Performed By: #### L IPA, CMP, CRP, NAT #### [facility] [address] [place] [address] Dr. Keturah Fisher LYMPH # 3.6 103/ul Normal 1.2-3.8 [facility] Comment on above: Performed By: #### L IPA, CMP, CRP, NAT #### [facility] [address] [place] [address] Dr. Keturah Fisher Lymphocytes/100 WBC (Bld) 32.7 % Normal 20.5-60.0 [facility] Comment on above: Performed By: #### L IPA, CMP, CRP, NAT #### [facility] [address] [place] [address] Dr. Keturah Fisher MANUAL DIFF REQ NO Normal [facility] Comment on above: Performed By: #### L IPA, CMP, CRP, NAT #### [facility] [address] [place] [address] Dr. Keturah Fisher MCH (RBC) [Entitic mass] 32.2 pg Normal 26.7-34.0 [facility] Comment on above: Performed By: #### L IPA, CMP, CRP, NAT #### [facility] [address] [place] [address] Dr. Keturah Fisher MCHC (RBC) [Mass/Vol] 32.9 g/dL Normal 29.9-35.2 [facility] Comment on above: Performed By: #### L IPA, CMP, CRP, NAT #### [facility] [address] [place] [address] Dr. Keturah Fisher MCV (RBC) [Entitic vol] 98.0 fL Normal 81.0-99.0 [facility] Comment on above: Performed By: #### L IPA, CMP, CRP, NAT #### [facility] [address] [place] [address] Dr. Keturah Fisher MONO # 1.1 103/ul Critically high 0.3-0.8 [facility] Comment on above: Performed By: #### L IPA, CMP, CRP, NAT #### [facility] [address] [place] [address] Dr. Keturah Fisher Monocytes/100 WBC (Bld) 9.7 % Normal 1.7-12.0 [facility] Comment on above: Performed By: #### L IPA, CMP, CRP, NAT #### [facility] [address] [place] [address] Dr. Keturah Fisher NEUT # 6.1 103/ul Normal 1.4-6.5 [facility] Comment on above: Performed By: #### L IPA, CMP, CRP, NAT #### [facility] [address] [place] [address] Dr. Keturah Fisher Neutrophils/100 WBC (Bld) 55.5 % Normal 43.0-75.0 [facility] Comment on above: Performed By: #### L IPA, CMP, CRP, NAT #### [facility] [address] [place] [address] Dr. Keturah Fisher Platelet mean volume (Bld) [Entitic vol] 9.7 fL Normal 9.5-13.5 [facility] Comment on above: Performed By: #### L IPA, CMP, CRP, NAT #### [facility] [address] [place] [address] Dr. Keturah Fisher PLT 274 103/ul Normal 150-450 [facility] Comment on above: Performed By: #### L IPA, CMP, CRP, NAT #### [facility] [address] [address] [address] Keturah Fisher RBC 4.56 106/ul Normal 4.20-5.40 [facility] Comment on above: Performed By: #### L IPA, CMP, CRP, NAT #### [facility] [address] [place] [address] Dr. Keturah Fisher WBC 10.9 103/ul Normal 4.0-11.0 [facility] Comment on above: Performed By: #### L IPA, CMP, CRP, NAT #### [facility] [address] [place] [address] Dr. Keturah Fisher CRPon 12-13-2021 CRP [Mass/Vol] mg/L Normal <=1.[address] [facility] Comment on above: Performed By: #### L IPA, CMP, CRP, NAT #### [facility] [address] [place] [address] ABD/PELV W CONon [...] #### L IPA, CMP, CRP, NAT #### [facility] [address] [place] [address] Dr. Keturah Fisher PROF 14(COMP METB)on 022 Albumin [Mass/Vol] 4.0 g/dL Normal 3.4-5.0 [facility] Comment on above: Performed By: #### L IPA, CMP, CRP, NAT #### [facility] [address] [address] [address] Keturah Fisher Albumin/Globulin [Mass ratio] 1.0 {ratio} Normal [facility] Comment on above: Performed By: #### L IPA, CMP, CRP, NAT #### [facility] [address] [place], [place] [address] Dr. Keturah Fisher ALP [Catalytic activity/Vol] 166 U/L Critically high 46-116 [facility] Comment on above: Performed By: #### L IPA, CMP, CRP, NAT #### [facility] [address] [address] [address] Keturah Fisher ALT [Catalytic activity/Vol] 19 U/L Normal 14-59 [facility] Comment on above: Performed By: #### L IPA, CMP, CRP, NAT #### [facility] [address] [place] [address] Dr. Keturah Fisher Anion gap [Moles/Vol] 9.5 mmol/L Normal [facility] Comment on above: Performed By: #### L IPA, CMP, CRP, NAT #### [facility] [address] [place] [address] Dr. Keturah Fisher AST [Catalytic activity/Vol] 16 U/L Normal 15-37 [facility] Comment on above: Performed By: #### L IPA, CMP, CRP, NAT #### [facility] [address] [place] [address] Dr. Keturah Fisher Bilirubin [Mass/Vol] 0.1 mg/dL Critically low 0.2-1.0 [facility] Comment on above: Performed By: #### L IPA, CMP, CRP, NAT #### [facility] [address] [place] [address] Dr. Keturah Fisher Calcium [Mass/Vol] 9.6 mg/dL Normal 8.5-10.1 [facility] Comment on above: Performed By: #### L IPA, CMP, CRP, NAT #### [facility] [address] [place] [address] Dr. Keturah Fisher Chloride [Moles/Vol] 104 mmol/L Normal 98-107 [facility] Comment on above: Performed By: #### L IPA, CMP, CRP, NAT #### [facility] [address] [place] [address] Dr. Keturah Fisher CO2 [Moles/Vol] 29.7 mmol/L Normal 21.0-32.0 [facility] Comment on above: Performed By: #### L IPA, CMP, CRP, NAT #### [facility] [address] [place] [address] Dr. Keturah Fisher Creatinine [Mass/Vol] 0.85 mg/dL Normal 0.55-1.02 [facility] Comment on above: Performed By: #### L IPA, CMP, CRP, NAT #### [facility] [address] [place] [address] Dr. Keturah Fisher EGFR-AF [place] >60 Normal >=60 [facility] Comment on above: Performed By: #### L IPA, CMP, CRP, NAT #### [facility] [address] [address] [address] Keturah Fisher EGFR-NON AF [place] >60 Normal >=60 [facility] Comment on above: Performed By: #### L IPA, CMP, CRP, NAT #### [facility] [address] [place] [address] Dr. Keturah Fisher Globulin (S) [Mass/Vol] 3.9 g/dL Normal [facility] Comment on above: Performed By: #### L IPA, CMP, CRP, NAT #### [facility] [address] [place] [address] Dr. Keturah Fisher Glucose [Mass/Vol] 70 mg/dL Critically low 74-106 [facility] Comment on above: Performed By: #### L IPA, CMP, CRP, NAT #### [facility] [address] [place] [address] Dr. Keturah Fisher Potassium [Moles/Vol] 3.2 mmol/L Critically low 3.5-5.1 [facility] Comment on above: Performed By: #### L IPA, CMP, CRP, ANT #### [facility] [address] [place] [address] Dr. Keturah Fisher Protein [Mass/Vol] 7.9 g/dL Normal 6.4-8.2 [facility] Comment on above: Performed By: #### L IPA, CMP, CRP, NAT #### [facility] [address] [place] [address] Dr. Keturah Fisher Sodium [Moles/Vol] 140 mmol/L Normal 136-145 [facility] Comment on above: Performed By: #### L IPA, CMP, CRP, NAT #### [facility] [address] [place] [address] Dr. Keturah Fisher Urea nitrogen [Mass/Vol] 8.0 mg/dL Normal 7.0-18.0 [facility] Comment on above: Performed By: #### L IPA, CMP, CRP, NAT #### [facility] [address] [place] [address] Dr. Keturah Fisher Urea nitrogen/Creatinine [Mass ratio] 9.4 mg/mg Normal [facility] Comment on above: Performed By: #### L IPA, CMP, CRP, NAT #### [facility] [address] [place] [address] Dr. Keturah Fisher AMYLASEon 12-05-2021 Amylase [Catalytic activity/Vol] 223 U/L Critically high 25-115 [facility] Comment on above: Performed By: #### L IPA, CMP, CRP, NAT #### [facility] [address] [place] [address] Dr. Keturah Fisher CBC AUTO DIFFon 12-05-2021 BASO # 0.1 103/ul Normal 0.0-0.1 [facility] Comment on above: Performed By: #### C BC #### [facility] [address] [place] [address] Dr. Keturah Fisher Basophils/100 WBC (Bld) 0.7 % Normal 0.2-2.0 [facility] Comment on above: Performed By: #### C BC #### [facility] [address] [place] [address] Dr. Keturah Fisher EO # 0.2 103/ul Normal 0.0-0.7 [facility] Comment on above: Performed By: #### C BC #### [facility] [address] [place] [address] Dr. Keturah Fisher Eosinophils/100 WBC (Bld) 1.7 % Normal 0.9-7.0 [facility] Comment on above: Performed By: #### C BC #### [facility] [address] [place] [address] Dr. Keturah Fisher Erythrocyte distribution width (RBC) [Ratio] 13.0 % Normal 11.0-15.0 [facility] Comment on above: Performed By: #### C BC #### [facility] [address] [place] [address] Dr. Keturah Fisher Hematocrit (Bld) [Volume fraction] 44.9 % Normal 36.0-48.0 [facility] Comment on above: Performed By: #### C BC #### [facility] [address] [place] [address] Dr. Keturah Fisher Hemoglobin (Bld) [Mass/Vol] 15.1 g/dL Normal 12.0-16.0 [facility] Comment on above: Performed By: #### C BC #### [facility] [address] [place] [address] Dr. Keturah Fisher IG # 0.02 10e3/ul Normal 0.00-0.03 [facility] Comment on above: Performed By: #### C BC #### [facility] [address] [place] [address] Dr. Keturah Fisher IG % 0.2 % Normal 0.0-0.5 [facility] Comment on above: Performed By: #### C BC #### [facility] [address] [place] [address] Dr. Keturah Fisher LYMPH # 2.8 103/ul Normal 1.2-3.8 [facility] Comment on above: Performed By: #### C BC #### [facility] [address] [place] [address] Dr. Keturah Fisher Lymphocytes/100 WBC (Bld) 29.8 % Normal 20.5-60.0 [facility] Comment on above: Performed By: #### C BC #### [facility] [address] [place] [address] Dr. Keturah Fisher MANUAL DIFF REQ NO Normal [facility] Comment on above: Performed By: #### C BC #### [facility] [address] [place] [address] Dr. Keturah Fisher MCH (RBC) [Entitic mass] 32.4 pg Normal 26.7-34.0 [facility] Comment on above: Performed By: #### C BC #### [facility] [address] [address] [address] Keturah Fisher MCHC (RBC) [Mass/Vol] 33.6 g/dL Normal 29.9-35.2 [facility] Comment on above: Performed By: #### C BC #### [facility] [address] [address] [address] Keturah Fisher MCV (RBC) [Entitic vol] 96.4 fL Normal 81.0-99.0 [facility] Comment on above: Performed By: #### C BC #### [facility] [address] [address] [address] Keturah Fisher MONO # 0.6 103/ul Normal 0.3-0.8 [facility] Comment on above: Performed By: #### C BC #### [facility] [address] [place] [address] Dr. Keturah Fisher Monocytes/100 WBC (Bld) 6.3 % Normal 1.7-12.0 [facility] Comment on above: Performed By: #### C BC #### [facility] [address] [place] [address] Dr. Keturah Fisher NEUT # 5.7 103/ul Normal 1.4-6.5 [facility] Comment on above: Performed By: #### C BC #### [facility] [address] [place] [address] Dr. Keturah Fisher Neutrophils/100 WBC (Bld) 61.3 % Normal 43.0-75.0 [facility] Comment on above: Performed By: #### C BC #### [facility] [address] [place] [address] Dr. Keturah Fisher Platelet mean volume (Bld) [Entitic vol] 10.7 fL Normal 9.5-13.5 [facility] Comment on above: Performed By: #### C BC #### [facility] [address] [place] [address] Dr. Keturah Fisher PLT 217 103/ul Normal 150-450 [facility] Comment on above: Performed By: #### C BC #### [facility] [address] [place] [address] Dr. Keturah Fisher RBC 4.66 106/ul Normal 4.20-5.40 [facility] Comment on above: Performed By: #### C BC #### [facility] [address] [place] [address] Dr. Keturah Fisher WBC 9.2 103/ul Normal 4.0-11.0 [facility] Comment on above: Performed By: #### C BC #### [facility] [address] [place] [address] Dr. Keturah Fisher LIPASEon 12-05-2021 Lipase [Catalytic activity/Vol] 725.0 U/L Critically high 73.0-393.0 [facility] Comment on above: Performed By: #### L IPA, CMP, CRP, NAT #### [facility] [address] [place] [address] Dr. Keturah Fisher PROF 14(COMP METB)on 022 Albumin [Mass/Vol] 4.2 g/dL Normal 3.4-5.0 [facility] Comment on above: Performed By: #### L IPA, CMP, CRP, NAT #### [facility] [address] [place] [address] Dr. Keturah Fisher Albumin/Globulin [Mass ratio] 1.2 {ratio} Normal [facility] Comment on above: Performed By: #### L IPA, CMP, CRP, NAT #### [facility] [address] [place] [address] Dr. Keturah Fisher ALP [Catalytic activity/Vol] 158 U/L Critically high 46-116 [facility] Comment on above: Performed By: #### L IPA, CMP, CRP, NAT #### [facility] [address] [place] [address] Dr. Keturah Fisher ALT [Catalytic activity/Vol] 20 U/L Normal 14-59 [facility] Comment on above: Performed By: #### L IPA, CMP, CRP, NAT #### [facility] [address] [place] [address] Dr. Keturah Fisher Anion gap [Moles/Vol] 14.0 mmol/L Normal [facility] Comment on above: Performed By: #### L IPA, CMP, CRP, NAT #### [facility] [address] [address] [address] Keturah Fisher AST [Catalytic activity/Vol] 27 U/L Normal 15-37 [facility] Comment on above: Performed By: #### L IPA, CMP, CRP, NAT #### [facility] [address] [address] [address] Keturah Fisher Bilirubin [Mass/Vol] 0.3 mg/dL Normal 0.2-1.0 [facility] Comment on above: Performed By: #### L IPA, CMP, CRP, NAT #### [facility] [address] [place] [address] Dr. Keturah Fisher Calcium [Mass/Vol] 10.1 mg/dL Normal 8.5-10.1 [facility] Comment on above: Performed By: #### L IPA, CMP, CRP, NAT #### [facility] [address] [place] [address] Dr. Keturah Fisher Chloride [Moles/Vol] 105 mmol/L Normal 98-107 [facility] Comment on above: Performed By: #### L IPA, CMP, CRP, NAT #### [facility] [address] [place] [address] Dr. Keturah Fisher CO2 [Moles/Vol] 24.9 mmol/L Normal 21.0-32.0 [facility] Comment on above: Performed By: #### L IPA, CMP, CRP, NAT #### [facility] [address] [place] [address] Dr. Keturah Fisher Creatinine [Mass/Vol] 0.77 mg/dL Normal 0.55-1.02 [facility] Comment on above: Performed By: #### L IPA, CMP, CRP, NAT #### [facility] [address] [place] [address] Dr. Keturah Fisher EGFR-AF [place] >60 Normal >=60 [facility] Comment on above: Performed By: #### L IPA, CMP, CRP, NAT #### [facility] [address] [address] [address] Keturah Fisher EGFR-NON AF [place] >60 Normal >=60 [facility] Comment on above: Performed By: #### L IPA, CMP, CRP, NAT #### [facility] [address] [address] [address] Keturah Fisher Globulin (S) [Mass/Vol] 3.5 g/dL Normal [facility] Comment on above: Performed By: #### L IPA, CMP, CRP, NAT #### [facility] [address] [address] [address] Keturah Fisher Glucose [Mass/Vol] 91 mg/dL Normal 74-106 [facility] Comment on above: Performed By: #### L IPA, CMP, CRP, NAT #### [facility] [address] [place] [address] Dr. Keturah Fisher Potassium [Moles/Vol] 3.9 mmol/L Normal 3.5-5.1 [facility] Comment on above: Performed By: #### L IPA, CMP, CRP, NAT #### [facility] [address] [address] [address] Keturah Fisher Protein [Mass/Vol] 7.7 g/dL Normal 6.4-8.2 [facility] Comment on above: Performed By: #### L IPA, CMP, CRP, NAT #### [facility] [address] [address] [address] Keturah Fisher Sodium [Moles/Vol] 140 mmol/L Normal 136-145 [facility] Comment on above: Performed By: #### L IPA, CMP, CRP, NAT #### [facility] [address] [address] [address] Keturah Fisher Urea nitrogen [Mass/Vol] 8.0 mg/dL Normal 7.0-18.0 [facility] Comment on above: Performed By: #### L IPA, CMP, CRP, NAT #### [facility] [address] [address] [address] Keturah Fisher Urea nitrogen/Creatinine [Mass ratio] 10.4 mg/mg Normal [facility] Comment on above: Performed By: #### L IPA, CMP, CRP, NAT #### [facility] [address] [place] [address] Dr. Keturah Fisher AMYLASEon 10-11-2021 Amylase [Catalytic activity/Vol] 134 U/L Critically high 25-115 [facility] Comment on above: Performed By: #### C BC #### [facility] [address] [place] [address] Dr. Keturah Fisher CBC AUTO DIFFon 10-11-2021 BASO # 0.1 103/ul Normal 0.0-0.1 [facility] Comment on above: Performed By: #### L IPA, CMP, CRP, NAT #### [facility] [address] [place] [address] Dr. Keturah Fisher Basophils/100 WBC (Bld) 1.0 % Normal 0.2-2.0 [facility] Comment on above: Performed By: #### L IPA, CMP, CRP, NAT #### [facility] [address] [place] [address] Dr. Keturah Fisher EO # 0.2 103/ul Normal 0.0-0.7 [facility] Comment on above: Performed By: #### L IPA, CMP, CRP, NAT #### [facility] [address] [place] [address] Dr. Keturah Fisher Eosinophils/100 WBC (Bld) 2.0 % Normal 0.9-7.0 [facility] Comment on above: Performed By: #### L IPA, CMP, CRP, NAT #### [facility] [address] [place] [address] Dr. Keturah Fisher Erythrocyte distribution width (RBC) [Ratio] 13.2 % Normal 11.0-15.0 [facility] Comment on above: Performed By: #### L IPA, CMP, CRP, NAT #### [facility] [address] [place] [address] Dr. Keturah Fisher Hematocrit (Bld) [Volume fraction] 44.7 % Normal 36.0-48.0 [facility] Comment on above: Performed By: #### L IPA, CMP, CRP, NAT #### [facility] [address] [place] [address] Dr. Keturah Fisher Hemoglobin (Bld) [Mass/Vol] 15.0 g/dL Normal 12.0-16.0 [facility] Comment on above: Performed By: #### L IPA, CMP, CRP, NAT #### [facility] [address] [place] [address] Dr. Keturah Fisher IG # 0.02 10e3/ul Normal 0.00-0.03 [facility] Comment on above: Performed By: #### L IPA, CMP, CRP, NAT #### [facility] [address] [place] [address] Dr. Keturah Fisher IG % 0.2 % Normal 0.0-0.5 [facility] Comment on above: Performed By: #### L IPA, CMP, CRP, NAT #### [facility] [address] [place] [address] Dr. Keturah Fisher LYMPH # 4.1 103/ul Critically high 1.2-3.8 [facility] Comment on above: Performed By: #### L IPA, CMP, CRP, NAT #### [facility] [address] [place] [address] Dr. Keturah Fisher Lymphocytes/100 WBC (Bld) 38.9 % Normal 20.5-60.0 [facility] Comment on above: Performed By: #### L IPA, CMP, CRP, NAT #### [facility] [address] [place] [address] Dr. Keturah Fisher MANUAL DIFF REQ NO Normal [facility] Comment on above: Performed By: #### L IPA, CMP, CRP, NAT #### [facility] [address] [place] [address] Dr. Keturah Fisher MCH (RBC) [Entitic mass] 32.1 pg Normal 26.7-34.0 [facility] Comment on above: Performed By: #### L IPA, CMP, CRP, NAT #### [facility] [address] [place], [place] [id number] Dr. Keturah Fisher MCHC (RBC) [Mass/Vol] 33.6 g/dL Normal 29.9-35.2 [facility] Comment on above: Performed By: #### L IPA, CMP, CRP, NAT #### [facility] [address] [place] [address] Dr. Keturah Fisher MCV (RBC) [Entitic vol] 95.7 fL Normal 81.0-99.0 [facility] Comment on above: Performed By: #### L IPA, CMP, CRP, NAT #### [facility] [address] [place] [address] Dr. Keturah Fisher MONO # 0.9 103/ul Critically high 0.3-0.8 [facility] Comment on above: Performed By: #### L IPA, CMP, CRP, NAT #### [facility] [address] [place] [address] Dr. Keturah Fisher Monocytes/100 WBC (Bld) 8.8 % Normal 1.7-12.0 [facility] Comment on above: Performed By: #### L IPA, CMP, CRP, NAT #### [facility] [address] [place] [address] Dr. Keturah Fisher NEUT # 5.2 103/ul Normal 1.4-6.5 [facility] Comment on above: Performed By: #### L IPA, CMP, CRP, NAT #### [facility] [address] [place] [address] Dr. Keturah Fisher Neutrophils/100 WBC (Bld) 49.1 % Normal 43.0-75.0 [facility] Comment on above: Performed By: #### L IPA, CMP, CRP, NAT #### [facility] [address] [place] [address] Dr. Keturah Fisher Platelet mean volume (Bld) [Entitic vol] 9.8 fL Normal 9.5-13.5 [facility] Comment on above: Performed By: #### L IPA, CMP, CRP, NAT #### [facility] [address] [place] [address] Dr. Keturah Fisher PLT 299 103/ul Normal 150-450 [facility] Comment on above: Performed By: #### L IPA, CMP, CRP, NAT #### [facility] [address] [place] [address] Dr. Keturah Fisher RBC 4.67 106/ul Normal 4.20-5.40 [facility] Comment on above: Performed By: #### L IPA, CMP, CRP, NAT #### [facility] [address] [place] [address] Dr. Keturah Fisher WBC 10.5 103/ul Normal 4.0-11.0 [facility] Comment on above: Performed By: #### L IPA, CMP, CRP, NAT #### [facility] [address] [place] [address] Dr. Keturah Fisher LIPASEon 10-11-2021 Lipase [Catalytic activity/Vol] 240.0 U/L Normal 73.0-393.0 [facility] Comment on above: Performed By: #### C BC #### [facility] [address] [place] [address] Dr. Keturah Fisher PROF 14(COMP METB)on 022 Albumin [Mass/Vol] 4.3 g/dL Normal 3.4-5.0 [facility] Comment on above: Performed By: #### C BC #### [facility] [address] [place] [address] Dr. Keturah Fisher Albumin/Globulin [Mass ratio] 1.3 {ratio} Normal [facility] Comment on above: Performed By: #### C BC #### [facility] [address] [place] [address] Dr. Keturah Fisher ALP [Catalytic activity/Vol] 162 U/L Critically high 46-116 [facility] Comment on above: Performed By: #### C BC #### [facility] [address] [place] [address] Dr. Keturah Fisher ALT [Catalytic activity/Vol] 21 U/L Normal 14-59 [facility] Comment on above: Performed By: #### C BC #### [facility] [address] [place] [address] Dr. Keturah Fisher Anion gap [Moles/Vol] 15.1 mmol/L Normal [facility] Comment on above: Performed By: #### C BC #### [facility] [address] [address] [address] Keturah Fisher AST [Catalytic activity/Vol] 16 U/L Normal 15-37 [facility] Comment on above: Performed By: #### C BC #### [facility] [address] [address] [address] Keturah Fisher Bilirubin [Mass/Vol] 0.2 mg/dL Normal 0.2-1.0 [facility] Comment on above: Performed By: #### C BC #### [facility] [address] [place] [address] Dr. Keturah Fisher Calcium [Mass/Vol] 9.6 mg/dL Normal 8.5-10.1 [facility] Comment on above: Performed By: #### C BC #### [facility] [address] [place] [address] Dr. Keturah Fisher Chloride [Moles/Vol] 104 mmol/L Normal 98-107 [facility] Comment on above: Performed By: #### C BC #### [facility] [address] [place] [address] Dr. Keturah Fisher CO2 [Moles/Vol] 24.6 mmol/L Normal 21.0-32.0 [facility] Comment on above: Performed By: #### C BC #### [facility] [address] [address] [address] Keturah Fisher Creatinine [Mass/Vol] 0.88 mg/dL Normal 0.55-1.02 [facility] Comment on above: Performed By: #### C BC #### [facility] [address] [place] [address] Dr. Keturah Fisher EGFR-AF [place] >60 Normal >=60 [facility] Comment on above: Performed By: #### C BC #### [facility] [address] [address] [address] Keturah Fisher EGFR-NON AF [place] >60 Normal >=60 [facility] Comment on above: Performed By: #### C BC #### [facility] [address] [address] [address] Keturah Fisher Globulin (S) [Mass/Vol] 3.3 g/dL Normal [facility] Comment on above: Performed By: #### C BC #### [facility] [address] [address] [address] Keturah Fisher Glucose [Mass/Vol] 111 mg/dL Critically high 74-106 [facility] Comment on above: Performed By: #### C BC #### [facility] [address] [address] [address] Keturah Fisher Potassium [Moles/Vol] 3.7 mmol/L Normal 3.5-5.1 [facility] Comment on above: Performed By: #### C BC #### [facility] [address] [place] [address] Dr. Keturah Fisher Protein [Mass/Vol] 7.6 g/dL Normal 6.4-8.2 [facility] Comment on above: Performed By: #### C BC #### [facility] [address] [address] [address] Keturah Fisher Sodium [Moles/Vol] 140 mmol/L Normal 136-145 [facility] Comment on above: Performed By: #### C BC #### [facility] [address] [address] [address] Keturah Fisher Urea nitrogen [Mass/Vol] 11.0 mg/dL Normal 7.0-18.0 [facility] Comment on above: Performed By: #### C BC #### [facility] [address] [address] [address] Keturah Fisher Urea nitrogen/Creatinine [Mass ratio] 12.5 mg/mg Normal [facility] Comment on above: Performed By: #### C BC #### [facility] [address] [address] [address] Keturah Fisher PROTIMEon 10-11-2021 INR Coag (PPP) [Relative time] 0.94 {INR} Normal [facility] Comment on above: Performed By: #### P T, PTT ####[facility] [id number] [address]Dr. Keturah Fisher INR GUIDELINES SEE BELOW Normal [facility] Comment on above: Result Comment: KARLY RED INR: 2.0 - 3.0 CONDITIONS NOT LISTED BELOW 2.5 - 3.5 FOR PROSTHETIC HEART VALVE REPLACEMENT 2.5 - 3.5 RECURRENT THROMBOSIS Performed By: #### P T, PTT ####[facility] [id number] [address]Dr. Keturah Fisher PT Coag (PPP) [Time] 10.2 s Normal 9.0-11.6 [facility] Comment on above: Performed By: #### P T, PTT ####[facility] [id number] [address]Dr. Keturah Fisher PTTon 10-11-2021 aPTT Coag (Bld) [Time] 28.0 s Normal 22.3-36.2 [facility] Comment on above: Performed By: #### P T, PTT ####[facility] [id number] [address]Dr. Keturah Fisher Amphetamine Screen Ql (U)Ord ered By: Christa Lopez on 10-09-2021 Amphetamines Ql (U) Negative Negative [facility] Barbiturates [Presence] in U rineOrdered By: Christa Lopez on 10-09-2021 Barbiturates Ql (U) Negative Negative [facility] Basophils Auto (Bld) [#/Vol] Ordered By: Christa Lopez on 10-09-2021 Basophils (Bld) [#/Vol] 0.1 10*3/uL 0.0-0.2 [facility] Basophils/100 WBC Auto (Bld) Ordered By: Christa Lopez on 10-09-2021 Basophils/100 WBC (Bld) 0.9 % . [facility] Benzodiazepines [Presence] i n UrineOrdered By: Christa Lopez on 10-09-2021 Benzodiazepines Ql (U) Negative Negative [facility] Bilirubin Auto test strip Ql (U)Ordered By: Christa Lopez on 10-09-2021 Bilirubin Ql (U) Negative Negative [facility] Blood hemoglobin measurement (mass/volume)Ordered By: Christa Lopez on 10-09-2021 Hemoglobin (Bld) [Mass/Vol] 15.7 g/dL 11.8-15.4 [facility] Blood leukocytes automated c ount (number/volume)Ordered By: Christa Lopez on 10-09-2021 WBC (Bld) [#/Vol] 10.1 10*3/uL 4.5-11.0 [facility] Body fluid albumin measureme nt (mass/volume)Ordered By: Christa Lopez on 10-09-2021 Albumin (Body fld) [Mass/Vol] 4.5 g/dL 3.2-5.5 [facility] Cannabinoids [Presence] in U rine by Screen methodOrdered By: Christa Lopez on 10-09-2021 Cannabinoids Screen Ql (U) Negative Negative [facility] Comment on above: These are unconfirme d results and should not be used for legal purposes. Drug Cut-Off Concentration: AMPH 1000 ng/mL BAILEY 200 ng/mL JAKE 200 ng/mL COCM 300 ng/mL OP 300 ng/mL PCP 25 ng/mL THC 20 ng/mL Creatinine and Glomerular fi ltration rate.predicted panel (S/P/Bld)Ordered By: Christa Lopez on 10-09-2021 Creatinine [Mass/Vol] 0.85 mg/dL 0.44-1.[address] [facility] Eosinophils Auto (Bld) [#/Vo l]Ordered By: Christa Lopez on 10-09-2021 Eosinophils (Bld) [#/Vol] 0.1 10*3/uL 0.0-0.45 [facility] Eosinophils/100 WBC Auto (Bl d)Ordered By: Christa Lopez on 10-09-2021 Eosinophils/100 WBC (Bld) 1.2 % . [facility] Erythrocyte distribution wid th Auto (RBC) [Ratio]Ordered By: Christa Lopez on 10-09-2021 Erythrocyte distribution width (RBC) [Ratio] 13.5 % 11.9-15.3 [facility] Estimated glomerular filtrat ion rate (GFR) non- AmericanOrdered By: Christa Lopez on 10-09-2021 GFR/1.73 sq M.predicted among non-blacks MDRD (S/P/Bld) [Vol rate/Area] > 60 mL/Min [facility] Globulin Calc (S) [Mass/Vol] Ordered By: Christa Lopez on 10-09-2021 Globulin (S) [Mass/Vol] 2.9 g/dL [facility] Hematocrit Auto (Bld) [Volum e fraction]Ordered By: Christa Lopez on 10-09-2021 Hematocrit (Bld) [Volume fraction] 47.1 % 34.0-46.4 [facility] Ketones Auto test strip (U) [Mass/Vol]Ordered By: Christa Lopez on 10-09-2021 Ketones (U) [Mass/Vol] Negative Negative [facility] Laboratory - Chemistry and C hemistry - challengeOrdered By: Christa Lopez on 10-09-2021 Lipase [Catalytic activity/Vol] 242.0 U/L 22-51 [facility] - Drug toxicology Ordered By: Christa Lopez on 10-09-2021 Opiates Ql (U) Negative Negative [facility] [facility] - Hematology and Cell countsOrdered By: Christa Lopez on 10-09-2021 Nucleated RBC/100 WBC (Bld) [Ratio] 0.1 % 0-0.5 [facility] Lymphocytes Auto (Bld) [#/Vo l]Ordered By: Christa Lopez on 10-09-2021 Lymphocytes (Bld) [#/Vol] 2.6 10*3/uL 1.00-4.8 [facility] Lymphocytes/100 WBC Auto (Bl d)Ordered By: Christa Lopez on 10-09-2021 Lymphocytes/100 WBC (Bld) 26.0 % . [facility] MCH Auto (RBC) [Entitic mass ]Ordered By: Christa Lopez on 10-09-2021 MCH (RBC) [Entitic mass] 32.4 pg 24.7-34.3 [facility] MCHC Auto (RBC) [Mass/Vol]Or dered By: Christa Lopez on 10-09-2021 MCHC (RBC) [Mass/Vol] 33.3 g/dL 32.0-35.[address] [facility] MCV Auto (RBC) [Entitic vol] Ordered By: Christa Lopez on 10-09-2021 MCV (RBC) [Entitic vol] 97.3 fL 80-100 [facility] Monocytes Auto (Bld) [#/Vol] Ordered By: Christa Lopez on 10-09-2021 Monocytes (Bld) [#/Vol] 0.8 10*3/uL 0.0-0.8 [facility] Monocytes/100 WBC Auto (Bld) Ordered By: Christa Lopez on 10-09-2021 Monocytes/100 WBC (Bld) 7.6 % . [facility] Neutrophils Auto (Bld) [#/Vo l]Ordered By: Christa Lopez on 10-09-2021 Neutrophils (Bld) [#/Vol] 6.5 10*3/uL 1.8-7.7 [facility] Neutrophils/100 WBC Auto (Bl d)Ordered By: Christa Lopez on 10-09-2021 Neutrophils/100 WBC (Bld) 64.3 % . [facility] No Panel InformationOrdered By: Christa Lopez on 10-09-2021 Estimated GFR () > 60 mL/Min [facility] Comment on above: GFR estimated refere nce range: According to KDOQI guidelines, <60 ml/min/1.73m2 is sufficient to diagnose a patient with chronic kidney disease. Pharmacy Creatinine Clearance (Chem 61.23 [facility] Phencyclidine Screen Ql (U)O rdered By: Christa Lopez on 10-09-2021 Phencyclidine Ql (U) Negative Negative [facility] Platelet mean volume Auto (B ld) [Entitic vol]Ordered By: Christa Lopez on 10-09-2021 Platelet mean volume (Bld) [Entitic vol] 8.5 fL 6.3-10.7 [facility] Platelets Auto (Bld) [#/Vol] Ordered By: Christa Lopez on 10-09-2021 Platelets (Bld) [#/Vol] 284 10*3/uL 150-450 [facility] Protein Auto test strip (U) [Mass/Vol]Ordered By: Christa Lopez on 10-09-2021 Protein (U) [Mass/Vol] Negative Negative [facility] Protein [Mass/volume] in Ser um or PlasmaOrdered By: Christa Lopez on 10-09-2021 Protein [Mass/Vol] 7.4 g/dL 6.1-7.9 [facility] RBC Auto (Bld) [#/Vol]Ordere d By: Christa Lopez on 10-09-2021 RBC (Bld) [#/Vol] 4.84 10*6/uL 3.60-5.00 [facility] Serum or plasma alanine hughes otransferase measurement without P-5'-P (enzymatic activiOrdered By: Christa Lopez on 10-09-2021 ALT No additional P-5'-P [Catalytic activity/Vol] 19 U/L 10-60 [facility] Serum or plasma albumin/glob ulin mass ratioOrdered By: Christa Lopez on 10-09-2021 Albumin/Globulin [Mass ratio] 1.6 {ratio} [facility] Serum or plasma alkaline jaqueline sphatase measurement (enzymatic activity/volume)Ordered By: Christa Lopez on 10-09-2021 ALP [Catalytic activity/Vol] 138 U/L 32-92 [facility] Serum or plasma aspartate am inotransferase measurement (enzymatic activity/volume)Ordered By: Christa Lopez on 10-09-2021 AST [Catalytic activity/Vol] 31 U/L 10-42 [facility] Serum or plasma calcium priscilla urement (mass/volume)Ordered By: Christa Lopez on 10-09-2021 Calcium [Mass/Vol] 10.3 mg/dL 8.2-10.2 [facility] Serum or plasma chloride daron surement (moles/volume)Ordered By: Christa Lopez on 10-09-2021 Chloride [Moles/Vol] 100 mmol/L 95-114 [facility] Serum or plasma glucose priscilla [...] on 10-09-2021 Potassium [Moles/Vol] 3.9 mmol/L 3.5-5.[address] [facility] Serum or plasma sodium measu rement (moles/volume)Ordered By: Christa Lopez on 10-09-2021 Sodium [Moles/Vol] 136 mmol/L 136-146 [facility] Serum or plasma total biliru bin measurement (mass/volume)Ordered By: Christa Lopez on 10-09-2021 Bilirubin [Mass/Vol] 0.4 mg/dL 0.3-1.2 [facility] Serum or plasma total carbon dioxide measurement (moles/volume)Ordered By: Christa Lopez on 10-09-2021 CO2 [Moles/Vol] 24.1 mmol/L 22.0-30.0 [facility] Serum or plasma urea nitroge n measurement (mass/volume)Ordered By: Christa Lopez on 10-09-2021 Urea nitrogen [Mass/Vol] 12 mg/dL 9-23 [facility] Troponin I.cardiac [Mass/vol ume] in Serum or Plasma by High sensitivity methodOrdered By: Christa Lopez on 10-09-2021 Troponin I.cardiac High sensitivity method [Mass/Vol] 3 pg/mL 0-15 [facility] Urine appearanceOrdered By: Christa Lopez on 10-09-2021 Appearance (U) Clear Clear [facility] Urine cocaine detectionOrder ed By: Christa Lopez on 10-09-2021 Cocaine Ql (U) Negative Negative [facility] Urine colorOrdered By: Christa Lopez on 10-09-2021 Color (U) Yellow Yellow [facility] Urine glucose measurement by automated test strip (mass/volume)Ordered By: Christa Lopez on 10-09-2021 Glucose Auto test strip (U) [Mass/Vol] Normal mg/dL Normal [facility] Urine hemoglobin detection b y automated test stripOrdered By: Christa Lopez on 10-09-2021 Hemoglobin Auto test strip Ql (U) Negative Negative [facility] Urine leukocyte esterase det ection by automated test stripOrdered By: Christa Lopez on 10-09-2021 Leukocyte esterase Auto test strip Ql (U) Negative Negative [facility] Urine nitrite detection by a utomated test stripOrdered By: Christa Lopez on 10-09-2021 Nitrite Auto test strip Ql (U) Negative Negative [facility] Urobilinogen Auto test strip (U) [Mass/Vol]Ordered By: Christa Lopez on 10-09-2021 Urobilinogen (U) [Mass/Vol] Normal mg/dL Normal [facility] pH Auto test strip (U)Ordere d By: Christa Lopez on 10-09-2021 pH (U) 1.025 [pH] 1.001-1.03 0 [facility] pH (U) 5.5 [pH] 5.0-9.0 [facility] Albumin [Mass/volume] in Ser um or PlasmaOrdered By: Reinaldo Amor on 10-04-2021 Albumin [Mass/Vol] 3.6 g/dL 3.2-5.5 [facility] Basophils Auto (Bld) [#/Vol] Ordered By: Reinaldo Amor on 10-04-2021 Basophils (Bld) [#/Vol] 0.1 10*3/uL 0.0-0.2 [facility] Basophils/100 WBC Auto (Bld) Ordered By: Reinaldo Amor on 10-04-2021 Basophils/100 WBC (Bld) 0.8 % . [facility] Bilirubin Auto test strip Ql (U)Ordered By: Reinaldo Amor on 10-04-2021 Bilirubin Ql (U) Negative Negative [facility] Blood hemoglobin measurement (mass/volume)Ordered By: Reinaldo Amor on 10-04-2021 Hemoglobin (Bld) [Mass/Vol] 13.9 g/dL 11.8-15.4 [facility] Blood leukocytes automated c ount (number/volume)Ordered By: Reinaldo Amor on 10-04-2021 WBC (Bld) [#/Vol] 10.4 10*3/uL 4.5-11.0 [facility] Creatinine and Glomerular fi ltration rate.predicted panel (S/P/Bld)Ordered By: Reinaldo Amor on 10-04-2021 Creatinine [Mass/Vol] 0.73 mg/dL 0.44-1.[address] [facility] Direct bilirubin measurement Ordered By: Reinaldo Amor on 10-04-2021 Bilirubin.direct [Mass/Vol] mg/dL 0.0-0.4 [facility] Eosinophils Auto (Bld) [#/Vo l]Ordered By: Reinaldo Amor on 10-04-2021 Eosinophils (Bld) [#/Vol] 0.1 10*3/uL 0.0-0.45 [facility] Eosinophils/100 WBC Auto (Bl d)Ordered By: Reinaldo Amor on 10-04-2021 Eosinophils/100 WBC (Bld) 0.5 % . [facility] Erythrocyte distribution wid th Auto (RBC) [Ratio]Ordered By: Reinaldo Amor on 10-04-2021 Erythrocyte distribution width (RBC) [Ratio] 13.7 % 11.9-15.3 [facility] Estimated glomerular filtrat ion rate (GFR) non- AmericanOrdered By: Reinaldo Amor on 10-04-2021 GFR/1.73 sq M.predicted among non-blacks MDRD (S/P/Bld) [Vol rate/Area] > 60 mL/Min [facility] Globulin Calc (S) [Mass/Vol] Ordered By: Reinaldo Amor on 10-04-2021 Globulin (S) [Mass/Vol] 2.6 g/dL [facility] Hematocrit Auto (Bld) [Volum e fraction]Ordered By: Reinaldo Amor on 10-04-2021 Hematocrit (Bld) [Volume fraction] 41.1 % 34.0-46.4 [facility] Ketones Auto test strip (U) [Mass/Vol]Ordered By: Reinaldo Amor on 10-04-2021 Ketones (U) [Mass/Vol] Negative [facility] and C hemistry - challengeOrdered By: Reinaldo Amor on 10-04-2021 Lipase [Catalytic activity/Vol] 107.0 U/L 22-51 [facility] - Hematology and Cell countsOrdered By: Reinaldo Amor on 10-04-2021 Nucleated RBC/100 WBC (Bld) [Ratio] 0.1 % 0-0.5 [facility] Lymphocytes Auto (Bld) [#/Vo l]Ordered By: Reinaldo Amor on 10-04-2021 Lymphocytes (Bld) [#/Vol] 2.5 10*3/uL 1.00-4.8 [facility] Lymphocytes/100 WBC Auto (Bl d)Ordered By: Reinaldo Amor on 10-04-2021 Lymphocytes/100 WBC (Bld) 24.1 % . [facility] MCH Auto (RBC) [Entitic mass ]Ordered By: Reinaldo Amor on 10-04-2021 MCH (RBC) [Entitic mass] 32.6 pg 24.7-34.3 [facility] MCHC Auto (RBC) [Mass/Vol]Or dered By: Reinaldo Amor on 10-04-2021 MCHC (RBC) [Mass/Vol] 33.8 g/dL 32.0-35.[address] [facility] MCV Auto (RBC) [Entitic vol] Ordered By: Reinaldo Amor on 10-04-2021 MCV (RBC) [Entitic vol] 96.5 fL 80-100 [facility] Monocytes Auto (Bld) [#/Vol] Ordered By: Reinaldo Amor on 10-04-2021 Monocytes (Bld) [#/Vol] 0.9 10*3/uL 0.0-0.8 [facility] Monocytes/100 WBC Auto (Bld) Ordered By: Reinaldo Amor on 10-04-2021 Monocytes/100 WBC (Bld) 8.4 % . [facility] Neutrophils Auto (Bld) [#/Vo l]Ordered By: Reinaldo Amor on 10-04-2021 Neutrophils (Bld) [#/Vol] 6.9 10*3/uL 1.8-7.7 [facility] Neutrophils/100 WBC Auto (Bl d)Ordered By: Reinaldo Amor on 10-04-2021 Neutrophils/100 WBC (Bld) 66.2 % . [facility] No Panel InformationOrdered By: Reinaldo Amor on 10-04-2021 Estimated GFR () > 60 mL/Min [facility] Comment on above: GFR estimated refere nce range: According to KDOQI guidelines, <60 ml/min/1.73m2 is sufficient to diagnose a patient with chronic kidney disease. Pharmacy Creatinine Clearance (Chem 71.30 [facility] Platelet mean volume Auto (B ld) [Entitic vol]Ordered By: Reinaldo Amor on 10-04-2021 Platelet mean volume (Bld) [Entitic vol] 8.0 fL 6.3-10.7 [facility] Platelets Auto (Bld) [#/Vol] Ordered By: Reinaldo Amor on 10-04-2021 Platelets (Bld) [#/Vol] 268 10*3/uL 150-450 [facility] Protein Auto test strip (U) [Mass/Vol]Ordered By: Reinaldo Amor on 10-04-2021 Protein (U) [Mass/Vol] Negative Negative [facility] Protein [Mass/volume] in Ser um or PlasmaOrdered By: Reinaldo Amor on 10-04-2021 Protein [Mass/Vol] 6.2 g/dL 6.1-7.9 [facility] RBC Auto (Bld) [#/Vol]Ordere d By: Reinaldo Amor on 10-04-2021 RBC (Bld) [#/Vol] 4.26 10*6/uL 3.60-5.00 [facility] Serum or plasma alanine hughes otransferase measurement without P-5'-P (enzymatic activiOrdered By: Reinaldo Amor on 10-04-2021 ALT No additional P-5'-P [Catalytic activity/Vol] 15 U/L 10-60 [facility] Serum or plasma albumin/glob ulin mass ratioOrdered By: Reinaldo Amor on 10-04-2021 Albumin/Globulin [Mass ratio] 1.4 {ratio} [facility] Serum or plasma alkaline jaqueline sphatase measurement (enzymatic activity/volume)Ordered By: Reinaldo Amor on 10-04-2021 ALP [Catalytic activity/Vol] 103 U/L 32-92 [facility] Serum or plasma amylase priscilla urement (enzymatic activity/volume)Ordered By: Reinaldo Amor on 10-04-2021 Amylase [Catalytic activity/Vol] 134 U/L 28-100 [facility] Serum or plasma aspartate am inotransferase measurement (enzymatic activity/volume)Ordered By: Reinaldo Amor on 10-04-2021 AST [Catalytic activity/Vol] 20 U/L 10-42 [facility] Serum or plasma calcium priscilla urement (mass/volume)Ordered By: Reinaldo Amor on 10-04-2021 Calcium [Mass/Vol] 9.6 mg/dL 8.2-10.2 [facility] Serum or plasma chloride daron surement (moles/volume)Ordered By: Reinaldo Amor on 10-04-2021 Chloride [Moles/Vol] 103 mmol/L 95-114 [facility] Serum or plasma ethanol priscilla [...] By: Reinaldo Amor on 10-04-2021 Bilirubin.indirect [Mass/Vol] [facility] Comment on above: Test not performed Serum or plasma potassium me asurement (moles/volume)Ordered By: Reinaldo Amor on 10-04-2021 Potassium [Moles/Vol] 3.7 mmol/L 3.5-5.[address] [facility] Serum or plasma sodium measu rement (moles/volume)Ordered By: Reinaldo Amor on 10-04-2021 Sodium [Moles/Vol] 137 mmol/L 136-146 [facility] Serum or plasma total biliru bin measurement (mass/volume)Ordered By: Reinaldo Amor on 10-04-2021 Bilirubin [Mass/Vol] 0.5 mg/dL 0.3-1.2 [facility] Serum or plasma total carbon dioxide measurement (moles/volume)Ordered By: Reinaldo Amor on 10-04-2021 CO2 [Moles/Vol] 24.9 mmol/L 22.0-30.0 [facility] Serum or plasma urea nitroge n measurement (mass/volume)Ordered By: Reinaldo Amor on 10-04-2021 Urea nitrogen [Mass/Vol] 7 mg/dL 9- [facility] Urine appearanceOrdered By: Reinaldo Amor on 10-04-2021 Appearance (U) Clear Clear [facility] Urine colorOrdered By: Ml Amor on 10-04-2021 Color (U) Yellow Yellow [facility] Urine glucose measurement by automated test strip (mass/volume)Ordered By: Reinaldo Amor on 10-04-2021 Glucose Auto test strip (U) [Mass/Vol] Normal mg/dL Normal [facility] Urine hemoglobin detection b y automated test stripOrdered By: Reinaldo Amor on 10-04-2021 Hemoglobin Auto test strip Ql (U) Negative Negative [facility] Urine leukocyte esterase det ection by automated test stripOrdered By: Reinaldo Amor on 10-04-2021 Leukocyte esterase Auto test strip Ql (U) Negative Negative [facility] Urine nitrite detection by a utomated test stripOrdered By: Reinaldo Amor on 10-04-2021 Nitrite Auto test strip Ql (U) Negative Negative [facility] Urobilinogen Auto test strip (U) [Mass/Vol]Ordered By: Reinaldo Amor on 10-04-2021 Urobilinogen (U) [Mass/Vol] Normal mg/dL Normal [facility] pH Auto test strip (U)Ordere d By: Reinaldo Amor on 10-04-2021 pH (U) 1.030 [pH] 1.001-1.03 0 [facility] pH (U) 5.5 [pH] 5.0-9.0 [facility] Basophils Auto (Bld) [#/Vol] Ordered By: Reinaldo Amor on 09-25-2021 Basophils (Bld) [#/Vol] 0.1 10*3/uL 0.0-0.2 [facility] Basophils/100 WBC Auto (Bld) Ordered By: Reinaldo Amor on 09-25-2021 Basophils/100 WBC (Bld) 1.2 % . [facility] Blood hemoglobin measurement (mass/volume)Ordered By: Reinaldo Amor on 09-25-2021 Hemoglobin (Bld) [Mass/Vol] 14.2 g/dL 11.8-15.4 [facility] Blood leukocytes automated c ount (number/volume)Ordered By: Reinaldo Amor on 09-25-2021 WBC (Bld) [#/Vol] 9.3 10*3/uL 4.5-11.0 [facility] Body fluid albumin measureme nt (mass/volume)Ordered By: PROVIDER TEMP on 09-25-2021 Albumin (Body fld) [Mass/Vol] 4.3 g/dL 3.2-5.5 [facility] Creatinine and Glomerular fi ltration rate.predicted panel (S/P/Bld)Ordered By: PROVIDER TEMMaty on 09-25-2021 Creatinine [Mass/Vol] 0.82 mg/dL 0.44-1.[address] [facility] Eosinophils Auto (Bld) [#/Vo l]Ordered By: Reinaldo Amor on 09-25-2021 Eosinophils (Bld) [#/Vol] 0.2 10*3/uL 0.0-0.45 [facility] Eosinophils/100 WBC Auto (Bl d)Ordered By: Reinaldo Amor on 09-25-2021 Eosinophils/100 WBC (Bld) 1.9 % . [facility] Erythrocyte distribution wid th Auto (RBC) [Ratio]Ordered By: Reinaldo Amor on 09-25-2021 Erythrocyte distribution width (RBC) [Ratio] 13.7 % 11.9-15.3 [facility] Estimated glomerular filtrat ion rate (GFR) non- AmericanOrdered By: PROVIDER TEMP on 09-25-2021 GFR/1.73 sq M.predicted among non-blacks MDRD (S/P/Bld) [Vol rate/Area] > 60 mL/Min [facility] Globulin Calc (S) [Mass/Vol] Ordered By: PROVIDER TEMP on 09-25-2021 Globulin (S) [Mass/Vol] 3.3 g/dL [facility] Hematocrit Auto (Bld) [Volum e fraction]Ordered By: Reinaldo Amor on 09-25-2021 Hematocrit (Bld) [Volume fraction] 42.1 % 34.0-46.4 [facility] Laboratory - Chemistry and C hemistry - challengeOrdered By: Reinaldo Amor on 09-25-2021 Lipase [Catalytic activity/Vol] 64.0 U/L 22-51 [facility] - Hematology and Cell countsOrdered By: Reinaldo Amor on 09-25-2021 Nucleated RBC/100 WBC (Bld) [Ratio] 0.1 % 0-0.5 [facility] Lymphocytes Auto (Bld) [#/Vo l]Ordered By: Reinaldo Amor on 09-25-2021 Lymphocytes (Bld) [#/Vol] 2.6 10*3/uL 1.00-4.8 [facility] Lymphocytes/100 WBC Auto (Bl d)Ordered By: Reinaldo Amor on 09-25-2021 Lymphocytes/100 WBC (Bld) 28.1 % . [facility] MCH Auto (RBC) [Entitic mass ]Ordered By: Reinaldo Amor on 09-25-2021 MCH (RBC) [Entitic mass] 32.5 pg 24.7-34.3 [facility] MCHC Auto (RBC) [Mass/Vol]Or dered By: Reinaldo Amor on 09-25-2021 MCHC (RBC) [Mass/Vol] 33.7 g/dL 32.0-35.[address] [facility] MCV Auto (RBC) [Entitic vol] Ordered By: Reinaldo Amor on 09-25-2021 MCV (RBC) [Entitic vol] 96.7 fL 80-100 [facility] Monocytes Auto (Bld) [#/Vol] Ordered By: Reinaldo Amor on 09-25-2021 Monocytes (Bld) [#/Vol] 0.8 10*3/uL 0.0-0.8 [facility] Monocytes/100 WBC Auto (Bld) Ordered By: Reinaldo Amor on 09-25-2021 Monocytes/100 WBC (Bld) 8.2 % . [facility] Neutrophils Auto (Bld) [#/Vo l]Ordered By: Reinaldo Amor on 09-25-2021 Neutrophils (Bld) [#/Vol] 5.6 10*3/uL 1.8-7.7 [facility] Neutrophils/100 WBC Auto (Bl d)Ordered By: Reinaldo Amor on 09-25-2021 Neutrophils/100 WBC (Bld) 60.6 % . [facility] No Panel InformationOrdered By: PROVIDER TEMP on 09-25-2021 Estimated GFR () > 60 mL/Min [facility] Comment on above: GFR estimated refere nce range: According to KDOQI guidelines, <60 ml/min/1.73m2 is sufficient to diagnose a patient with chronic kidney disease. Pharmacy Creatinine Clearance (Chem 63.47 [facility] Platelet mean volume Auto (B ld) [Entitic vol]Ordered By: Reinaldo Amor on 09-25-2021 Platelet mean volume (Bld) [Entitic vol] 8.6 fL 6.3-10.7 [facility] Platelets Auto (Bld) [#/Vol] Ordered By: Reinaldo Amor on 09-25-2021 Platelets (Bld) [#/Vol] 221 10*3/uL 150-450 [facility] Protein [Mass/volume] in Ser um or PlasmaOrdered By: PROVIDER TEMP on 09-25-2021 Protein [Mass/Vol] 7.6 g/dL 6.1-7.9 [facility] RBC Auto (Bld) [#/Vol]Ordere d By: Reinaldo Amor on 09-25-2021 RBC (Bld) [#/Vol] 4.35 10*6/uL 3.60-5.00 [facility] Serum or plasma alanine hughes otransferase measurement without P-5'-P (enzymatic activiOrdered By: PROVIDER TEMP on 09-25-2021 ALT No additional P-5'-P [Catalytic activity/Vol] 14 U/L 10-60 [facility] Serum or plasma albumin/glob ulin mass ratioOrdered By: PROVIDER TEMP on 09-25-2021 Albumin/Globulin [Mass ratio] 1.3 {ratio} [facility] Serum or plasma alkaline jaqueline sphatase measurement (enzymatic activity/volume)Ordered By: PROVIDER TEMP on 09-25-2021 ALP [Catalytic activity/Vol] 127 U/L 32-92 [facility] Serum or plasma amylase priscilla urement (enzymatic activity/volume)Ordered By: Reinaldo Amor on 09-25-2021 Amylase [Catalytic activity/Vol] 171 U/L 28-100 [facility] Serum or plasma aspartate am inotransferase measurement (enzymatic activity/volume)Ordered By: PROVIDER TEMP on 09-25-2021 AST [Catalytic activity/Vol] 21 U/L 10-42 [facility] Serum or plasma calcium priscilla urement (mass/volume)Ordered By: PROVIDER TEMP on 09-25-2021 Calcium [Mass/Vol] 10.1 mg/dL 8.2-10.2 [facility] Serum or plasma chloride daron surement (moles/volume)Ordered By: PROVIDER TEMP on 09-25-2021 Chloride [Moles/Vol] 103 mmol/L 95-114 [facility] Serum or plasma glucose priscilla [...] on 09-25-2021 Potassium [Moles/Vol] 3.9 mmol/L 3.5-5.[address] [facility] Serum or plasma sodium measu rement (moles/volume)Ordered By: PROVIDER TEMP on 09-25-2021 Sodium [Moles/Vol] 137 mmol/L 136-146 [facility] Serum or plasma total biliru bin measurement (mass/volume)Ordered By: PROVIDER TEMP on 09-25-2021 Bilirubin [Mass/Vol] 0.3 mg/dL 0.3-1.2 [facility] Serum or plasma total carbon dioxide measurement (moles/volume)Ordered By: PROVIDER TEMP on 09-25-2021 CO2 [Moles/Vol] 26.3 mmol/L 22.0-30.0 [facility] Serum or plasma urea nitroge n measurement (mass/volume)Ordered By: PROVIDER TEMP on 09-25-2021 Urea nitrogen [Mass/Vol] 8 mg/dL 9- [facility] AMYLASEon 09-17-2021 Amylase [Catalytic activity/Vol] 142 U/L Critically high 25-115 [facility] Comment on above: Performed By: #### A MY, CMP, LIPA ####[facility] [address] [place] [address]Dr. Keturah Fisher CBC AUTO DIFFon 09-17-2021 BASO # 0.1 103/ul Normal 0.0-0.1 [facility] Comment on above: Performed By: #### C BC ####[facility] [id number] [place], [place] [address]Dr. Keturah Fisher Basophils/100 WBC (Bld) 0.7 % Normal 0.2-2.0 [facility] Comment on above: Performed By: #### C BC ####[facility] [address] [place], [place] [address]Dr. Keturah Fisher EO # 0.1 103/ul Normal 0.0-0.7 [facility] Comment on above: Performed By: #### C BC ####[facility] [address] [place], [place] [address]Dr. Keturah Fisher Eosinophils/100 WBC (Bld) 1.3 % Normal 0.9-7.0 [facility] Comment on above: Performed By: #### C BC ####[facility] [id number] [place], [place] [address]Dr. Keturah Fisher Erythrocyte distribution width (RBC) [Ratio] 13.2 % Normal 11.0-15.0 [facility] Comment on above: Performed By: #### C BC ####[facility] [address] [place], [place] [address]Dr. Keturah Fisher Hematocrit (Bld) [Volume fraction] 43.7 % Normal 36.0-48.0 [facility] Comment on above: Performed By: #### C BC ####[facility] [address] [place] [address]Dr. Keturah Fisher Hemoglobin (Bld) [Mass/Vol] 14.7 g/dL Normal 12.0-16.0 [facility] Comment on above: Performed By: #### C BC ####[facility] [address] [place] [address]Dr. Keturah Fisher IG # 0.01 10e3/ul Normal 0.00-0.03 [facility] Comment on above: Performed By: #### C BC ####[facility] Ajvmjrmbps[address] [place], [place] [address]Dr. Keturah Phillip IG % 0.1 % Normal 0.0-0.5 [facility] Comment on above: Performed By: #### C BC ####[facility] [address] [place], [place] [address]Dr. Keturah Phillip LYMPH # 2.7 103/ul Normal 1.2-3.8 [facility] Comment on above: Performed By: #### C BC ####[facility] Dpkhbuiohw[address] [place], [place] [address]Dr. Keturah Phillip Lymphocytes/100 WBC (Bld) 30.1 % Normal 20.5-60.0 [facility] Comment on above: Performed By: #### C BC ####[facility] [address]qd[address] [place], [place] [address]Dr. Keturah Phillip MANUAL DIFF REQ NO Normal [facility] Comment on above: Performed By: #### C BC ####[facility] Q[address]auto[address] [place], [place] [address]Dr. Keturah Fisher MCH (RBC) [Entitic mass] 32.4 pg Normal 26.7-34.0 [facility] Comment on above: Performed By: #### C BC ####[facility] Udr[address] [place], [place] [address]Dr. Keturah Phillip MCHC (RBC) [Mass/Vol] 33.6 g/dL Normal 29.9-35.2 [facility] Comment on above: Performed By: #### C BC ####[facility] [address] [place], [place] [address]Dr. Keturah Phillip MCV (RBC) [Entitic vol] 96.3 fL Normal 81.0-99.0 [facility] Comment on above: Performed By: #### C BC ####[facility] [address] [place] [address]Dr. Keturah Fisher MONO # 0.8 103/ul Normal 0.3-0.8 [facility] Comment on above: Performed By: #### C BC ####[facility] [address]ek[address]vp[address]ns[address] [place], [place] [address]Dr. Keturah Phillip Monocytes/100 WBC (Bld) 8.7 % Normal 1.7-12.0 [facility] Comment on above: Performed By: #### C BC ####[facility] [address]rg[address] [place], [place] [address]Dr. Keturah Fisher NEUT # 5.4 103/ul Normal 1.4-6.5 [facility] Comment on above: Performed By: #### C BC ####[facility] Awigwlrkwc[address] [place], [place] [address]Dr. Keturah Phillip Neutrophils/100 WBC (Bld) 59.1 % Normal 43.0-75.0 [facility] Comment on above: Performed By: #### C BC ####[facility] Onnmtaxion[address] [place], [place] [address]Dr. Keturah Phillip Platelet mean volume (Bld) [Entitic vol] 9.6 fL Normal 9.5-13.5 [facility] Comment on above: Performed By: #### C BC ####[facility] [address] [place], [place] [address]Dr. Keturah Phillip PLT 272 103/ul Normal 150-450 [facility] Comment on above: Performed By: #### C BC ####[facility] Lcpqmq[address] [place], [place] [address]Dr. Keturah Fisher RBC 4.54 106/ul Normal 4.20-5.40 [facility] Comment on above: Performed By: #### C BC ####[facility] [address]ifkp[address] [place], [place] [address]Dr. Keturah Fisher WBC 9.1 103/ul Normal 4.0-11.0 [facility] Comment on above: Performed By: #### C BC ####[facility] [address] [place], [place] [address]JhDr. Keturah Fisher ETHANOL (BLD ALC)on 09-18-19 22 ALC NOTE NOTE: 80 mg/dl is th e legal limit for a blood alcohol level Normal [facility] Comment on above: Performed By: #### L IPA, CMP, CRP, NAT #### [facility] [address] [address] [address] Keturah Fisher Ethanol [Mass/Vol] mg/dL Normal [facility] Comment on above: Performed By: #### L IPA, CMP, CRP, NAT #### [facility] [address] [place] [address] Dr. Keturah Fisher LIPASEon 09-17-2021 Lipase [Catalytic activity/Vol] 524.0 U/L Critically high 73.0-393.0 [facility] Comment on above: Performed By: #### C BC #### [facility] [address] [address] [address] Keturah Fisher PROF 14(COMP METB)on 022 Albumin [Mass/Vol] 3.9 g/dL Normal 3.4-5.0 [facility] Comment on above: Performed By: #### C BC #### [facility] [address] [place], [place] [id number] Dr. Keturah Fisher Albumin/Globulin [Mass ratio] 1.1 {ratio} Normal [facility] Comment on above: Performed By: #### C BC #### [facility] [address] [place] [address] Dr. Keturah Fisher ALP [Catalytic activity/Vol] 136 U/L Critically high 46-116 [facility] Comment on above: Performed By: #### C BC #### [facility] [address] [address] [address] Keturah Fisher ALT [Catalytic activity/Vol] 21 U/L Normal 14-59 [facility] Comment on above: Performed By: #### C BC #### [facility] [address] [address] [address] Keturah Fisher Anion gap [Moles/Vol] 12.7 mmol/L Normal [facility] Comment on above: Performed By: #### C BC #### [facility] [address] [address] [address] Keturah Fisher AST [Catalytic activity/Vol] 16 U/L Normal 15-37 [facility] Comment on above: Performed By: #### C BC #### [facility] [address] [address] [address] Keturah Fisher Bilirubin [Mass/Vol] 0.2 mg/dL Normal 0.2-1.0 [facility] Comment on above: Performed By: #### C BC #### [facility] [address] [address] [address] Keturah Fisher Calcium [Mass/Vol] 9.9 mg/dL Normal 8.5-10.1 [facility] Comment on above: Performed By: #### C BC #### [facility] [address] [place] [address] Dr. Keturah Fisher Chloride [Moles/Vol] 106 mmol/L Normal 98-107 [facility] Comment on above: Performed By: #### C BC #### [facility] [address] [address] [address] Keturah Fisher CO2 [Moles/Vol] 25.9 mmol/L Normal 21.0-32.0 [facility] Comment on above: Performed By: #### C BC #### [facility] [address] [place] [address] Dr. Keturah Fisher Creatinine [Mass/Vol] 0.96 mg/dL Normal 0.55-1.02 [facility] Comment on above: Performed By: #### C BC #### [facility] [address] [place] [address] Dr. Keturah Fisher EGFR-AF [place] >60 Normal >=60 [facility] Comment on above: Performed By: #### C BC #### [facility] [address] [address] [address] Keturah Fisher EGFR-NON AF [place] >60 Normal >=60 [facility] Comment on above: Performed By: #### C BC #### [facility] [address] [place] [address] Dr. Keturah Fisher Globulin (S) [Mass/Vol] 3.5 g/dL Normal [facility] Comment on above: Performed By: #### C BC #### [facility] [address] [address] [address] Keturah Fisher Glucose [Mass/Vol] 113 mg/dL Critically high 74-106 [facility] Comment on above: Performed By: #### C BC #### [facility] [address] [place] [address] Dr. Keturah Fisher Potassium [Moles/Vol] 3.6 mmol/L Normal 3.5-5.1 [facility] Comment on above: Performed By: #### C BC #### [facility] [address] [place] [address] Dr. Keturah Fisher Protein [Mass/Vol] 7.4 g/dL Normal 6.4-8.2 [facility] Comment on above: Performed By: #### C BC #### [facility] [address] [place] [address] Dr. Keturah Fisher Sodium [Moles/Vol] 141 mmol/L Normal 136-145 [facility] Comment on above: Performed By: #### C BC #### [facility] [address] [place] [address] Dr. Keturah Fisher Urea nitrogen [Mass/Vol] 8.0 mg/dL Normal 7.0-18.0 [facility] Comment on above: Performed By: #### C BC #### [facility] [address] [place] [address] Dr. Keturah Fisher Urea nitrogen/Creatinine [Mass ratio] 8.3 mg/mg Normal [facility] Comment on above: Performed By: #### C BC #### [facility] [address] [place] [address] Dr. Keturah Fisher AMYLASEon 08-26-2021 Amylase [Catalytic activity/Vol] 94 U/L Normal 25-115 [facility] Comment on above: Performed By: #### A MY, CMP, LIPA ####[facility] [address] [place] [address]Dr. Keturah Fisher CBC AUTO DIFFon 08-26-2021 BASO # 0.1 103/ul Normal 0.0-0.1 [facility] Comment on above: Performed By: #### L IPA, CMP, CRP, NAT #### [facility] [address] [address] [address] Keturah Fisher Basophils/100 WBC (Bld) 0.7 % Normal 0.2-2.0 [facility] Comment on above: Performed By: #### L IPA, CMP, CRP, NAT #### [facility] [address] [place] [address] Dr. Keturah Fisher EO # 0.2 103/ul Normal 0.0-0.7 [facility] Comment on above: Performed By: #### L IPA, CMP, CRP, NAT #### [facility] [address] [place] [address] Dr. Keturah Fisher Eosinophils/100 WBC (Bld) 2.5 % Normal 0.9-7.0 [facility] Comment on above: Performed By: #### L IPA, CMP, CRP, NAT #### [facility] [address] [place] [address] Dr. Keturah Fisher Erythrocyte distribution width (RBC) [Ratio] 13.1 % Normal 11.0-15.0 [facility] Comment on above: Performed By: #### L IPA, CMP, CRP, NAT #### [facility] [address] [address] [address] Keturah Fisher Hematocrit (Bld) [Volume fraction] 42.4 % Normal 36.0-48.0 [facility] Comment on above: Performed By: #### L IPA, CMP, CRP, NAT #### [facility] [address] [address] [address] Keturah Fisher Hemoglobin (Bld) [Mass/Vol] 14.1 g/dL Normal 12.0-16.0 [facility] Comment on above: Performed By: #### L IPA, CMP, CRP, NAT #### [facility] [address] [place] [address] Dr. Keturah Fisher IG # 0.03 10e3/ul Normal 0.00-0.03 [facility] Comment on above: Performed By: #### L IPA, CMP, CRP, NAT #### [facility] [address] [place] [address] Dr. Keturah Fisher IG % 0.3 % Normal 0.0-0.5 [facility] Comment on above: Performed By: #### L IPA, CMP, CRP, NAT #### [facility] [address] [place] [address] Dr. Keturah Fisher LYMPH # 2.6 103/ul Normal 1.2-3.8 [facility] Comment on above: Performed By: #### L IPA, CMP, CRP, NAT #### [facility] [address] [place] [address] Dr. Keturah Fisher Lymphocytes/100 WBC (Bld) 27.7 % Normal 20.5-60.0 [facility] Comment on above: Performed By: #### L IPA, CMP, CRP, NAT #### [facility] [address] [place] [address] Dr. Keturah Fisher MANUAL DIFF REQ NO Normal [facility] Comment on above: Performed By: #### L IPA, CMP, CRP, NAT #### [facility] [address] [place] [address] Dr. Keturah Fisher MCH (RBC) [Entitic mass] 32.6 pg Normal 26.7-34.0 [facility] Comment on above: Performed By: #### L IPA, CMP, CRP, NAT #### [facility] [address] [place] [address] Dr. Keturah Fisher MCHC (RBC) [Mass/Vol] 33.3 g/dL Normal 29.9-35.2 [facility] Comment on above: Performed By: #### L IPA, CMP, CRP, NAT #### [facility] [address] [address] [address] Keturah Fisher MCV (RBC) [Entitic vol] 97.9 fL Normal 81.0-99.0 [facility] Comment on above: Performed By: #### L IPA, CMP, CRP, NAT #### [facility] [address] [place] [address] Dr. Keturah Fisher MONO # 1.2 103/ul Critically high 0.3-0.8 [facility] Comment on above: Performed By: #### L IPA, CMP, CRP, NAT #### [facility] [address] [place] [address] Dr. Keturah Fisher Monocytes/100 WBC (Bld) 12.9 % Critically high 1.7-12.0 [facility] Comment on above: Performed By: #### L IPA, CMP, CRP, NAT #### [facility] [address] [place] [address] Dr. Keturah Fisher NEUT # 5.3 103/ul Normal 1.4-6.5 [facility] Comment on above: Performed By: #### L IPA, CMP, CRP, NAT #### [facility] [address] [place] [address] Dr. Keturah Fisher Neutrophils/100 WBC (Bld) 55.9 % Normal 43.0-75.0 [facility] Comment on above: Performed By: #### L IPA, CMP, CRP, NAT #### [facility] [address] [place] [address] Dr. Keturah Fisher Platelet mean volume (Bld) [Entitic vol] 9.8 fL Normal 9.5-13.5 [facility] Comment on above: Performed By: #### L IPA, CMP, CRP, NAT #### [facility] [address] [place] [address] Dr. Keturah Fisher PLT 229 103/ul Normal 150-450 [facility] Comment on above: Performed By: #### L IPA, CMP, CRP, NAT #### [facility] [address] [place] [address] Dr. Keturah Fisher RBC 4.33 106/ul Normal 4.20-5.40 [facility] Comment on above: Performed By: #### L IPA, CMP, CRP, NAT #### [facility] [address] [address] [address] Keturah Fisher WBC 9.5 103/ul Normal 4.0-11.0 [facility] Comment on above: Performed By: #### L IPA, CMP, CRP, NAT #### [facility] [address] [address] [address] Keturah Fisher LIPASEon 08-26-2021 Lipase [Catalytic activity/Vol] 146.0 U/L Normal 73.0-393.0 [facility] Comment on above: Performed By: #### A MY, CMP, LIPA ####[facility] [address] [place] [address]DrGopal Fisher PROF 14(COMP METB)on Albumin [Mass/Vol] 3.5 g/dL Normal 3.4-5.0 [facility] Comment on above: Performed By: #### A MY, CMP, LIPA ####[facility] [address] [place] [address]Dr. Keturah Fisher Albumin/Globulin [Mass ratio] 1.1 {ratio} Normal [facility] Comment on above: Performed By: #### A MY, CMP, LIPA ####[facility] [address] [place] [address]Dr. Keturah Fisher ALP [Catalytic activity/Vol] 139 U/L Critically high 46-116 [facility] Comment on above: Performed By: #### A MY, CMP, LIPA ####[facility] [address] [place] [address]Dr. Keturah Fisher ALT [Catalytic activity/Vol] 21 U/L Normal 14-59 [facility] Comment on above: Performed By: #### A MY, CMP, LIPA ####[facility] [address] [place] [address]Dr. Keturah Fisher Anion gap [Moles/Vol] 11.4 mmol/L Normal [facility] Comment on above: Performed By: #### A MY, CMP, LIPA ####[facility] [address] [place] [address]Dr. Keturah Fisher AST [Catalytic activity/Vol] 21 U/L Normal 15-37 [facility] Comment on above: Performed By: #### A MY, CMP, LIPA ####[facility] [address] [place] [address]Dr. Keturah Fisher Bilirubin [Mass/Vol] 0.2 mg/dL Normal 0.2-1.0 [facility] Comment on above: Performed By: #### A MY, CMP, LIPA ####[facility] [address] [place] [address]Dr. Keturah Fisher Calcium [Mass/Vol] 9.2 mg/dL Normal 8.5-10.1 [facility] Comment on above: Performed By: #### A MY, CMP, LIPA ####[facility] [address] [place], [place] [address]Dr. Keturah Fisher Chloride [Moles/Vol] 107 mmol/L Normal 98-107 [facility] Comment on above: Performed By: #### A MY, CMP, LIPA ####[facility] [address] [place], [place] [address]Dr. Keturah Fisher CO2 [Moles/Vol] 27.9 mmol/L Normal 21.0-32.0 [facility] Comment on above: Performed By: #### A MY, CMP, LIPA ####[facility] [address] [place], [place] [address]Dr. Keturah Fisher Creatinine [Mass/Vol] 0.84 mg/dL Normal 0.55-1.02 [facility] Comment on above: Performed By: #### A MY, CMP, LIPA ####[facility] [address] [place], [place] [address]Dr. Keturah Fisher EGFR-AF [place] >60 Normal >=60 [facility] Comment on above: Performed By: #### A MY, CMP, LIPA ####[facility] [address] [place], [place] [address]Dr. Keturah Fisher EGFR-NON AF [place] >60 Normal >=60 [facility] Comment on above: Performed By: #### A MY, CMP, LIPA ####[facility] [address] [place] [address]Dr. Keturah Fisher Globulin (S) [Mass/Vol] 3.3 g/dL Normal [facility] Comment on above: Performed By: #### A MY, CMP, LIPA ####[facility] [address] [place] [address]Dr. Keturah Fisher Glucose [Mass/Vol] 106 mg/dL Normal 74-106 [facility] Comment on above: Performed By: #### A MY, CMP, LIPA ####[facility] [address] [place] [address]Dr. Keturah Fisher Potassium [Moles/Vol] 4.3 mmol/L Normal 3.5-5.1 [facility] Comment on above: Performed By: #### A MY, CMP, LIPA ####[facility] [address] [place] [address]Dr. Keturah Fisher Protein [Mass/Vol] 6.8 g/dL Normal 6.4-8.2 [facility] Comment on above: Performed By: #### A MY, CMP, LIPA ####[facility] [address] [place] [address]Dr. Keturah Fisher Sodium [Moles/Vol] 142 mmol/L Normal 136-145 [facility] Comment on above: Performed By: #### A MY, CMP, LIPA ####[facility] [address] [place] [address]Dr. Keturah Fisher Urea nitrogen [Mass/Vol] 11.0 mg/dL Normal 7.0-18.0 [facility] Comment on above: Performed By: #### A MY, CMP, LIPA ####[facility] [address] [place] [address]Dr. Keturah Fisher Urea nitrogen/Creatinine [Mass ratio] 13.1 mg/mg Normal [facility] Comment on above: Performed By: #### A MY, CMP, LIPA ####[facility] [address] [place], [place] [address]JvDr. Keturah Fisher XR ABD FLAT UP_PA Jorje [...] MILADIS BARRERA Date: 2021-08-26 04:59 Normal [facility] AMYLASEon 08-22-2021 Amylase [Catalytic activity/Vol] 155 U/L Critically high 25-115 [facility] Comment on above: Performed By: #### C MP, NAT, LIPA #### [facility] [address] [address] [address] Keturah Fisher CBC AUTO DIFFon 08-22-2021 BASO # 0.1 103/ul Normal 0.0-0.1 [facility] Comment on above: Performed By: #### L IPA, CMP, CRP, NAT #### [facility] [address] [place], [place] [address] Dr. Keturah Fisher Basophils/100 WBC (Bld) 0.7 % Normal 0.2-2.0 [facility] Comment on above: Performed By: #### L IPA, CMP, CRP, NAT #### [facility] [address] [address] [address] Keturah Fisher EO # 0.1 103/ul Normal 0.0-0.7 [facility] Comment on above: Performed By: #### L IPA, CMP, CRP, NAT #### [facility] [address] [place] [address] Dr. Keturah Fisher Eosinophils/100 WBC (Bld) 0.7 % Critically low 0.9-7.0 [facility] Comment on above: Performed By: #### L IPA, CMP, CRP, NAT #### [facility] [address] [place] [address] Dr. Keturah Fisher Erythrocyte distribution width (RBC) [Ratio] 13.2 % Normal 11.0-15.0 [facility] Comment on above: Performed By: #### L IPA, CMP, CRP, NAT #### [facility] [address] [place] [address] Dr. Keturah Fisher Hematocrit (Bld) [Volume fraction] 41.1 % Normal 36.0-48.0 [facility] Comment on above: Performed By: #### L IPA, CMP, CRP, NAT #### [facility] [address] [place] [address] Dr. Keturah Fisher Hemoglobin (Bld) [Mass/Vol] 13.8 g/dL Normal 12.0-16.0 [facility] Comment on above: Performed By: #### L IPA, CMP, CRP, NAT #### [facility] [address] [place] [address] Dr. Keturah Fisher IG # 0.03 10e3/ul Normal 0.00-0.03 [facility] Comment on above: Performed By: #### L IPA, CMP, CRP, NAT #### [facility] [address] [place] [address] Dr. Keturah Fisher IG % 0.2 % Normal 0.0-0.5 [facility] Comment on above: Performed By: #### L IPA, CMP, CRP, NAT #### [facility] [address] [place] [address] Dr. Keturah Fisher LYMPH # 2.6 103/ul Normal 1.2-3.8 [facility] Comment on above: Performed By: #### L IPA, CMP, CRP, NAT #### [facility] [address] [address] [address] Keturah Fisher Lymphocytes/100 WBC (Bld) 21.4 % Normal 20.5-60.0 [facility] Comment on above: Performed By: #### L IPA, CMP, CRP, NAT #### [facility] [address] [address] [address] Keturah Fisher MANUAL DIFF REQ NO Normal [facility] Comment on above: Performed By: #### L IPA, CMP, CRP, NAT #### [facility] [address] [place] [address] Dr. Keturah Fisher MCH (RBC) [Entitic mass] 32.2 pg Normal 26.7-34.0 [facility] Comment on above: Performed By: #### L IPA, CMP, CRP, NAT #### [facility] [address] [place] [address] Dr. Keturah Fisher MCHC (RBC) [Mass/Vol] 33.6 g/dL Normal 29.9-35.2 [facility] Comment on above: Performed By: #### L IPA, CMP, CRP, NAT #### [facility] [address] [place] [address] Dr. Keturah Fisher MCV (RBC) [Entitic vol] 95.8 fL Normal 81.0-99.0 [facility] Comment on above: Performed By: #### L IPA, CMP, CRP, NAT #### [facility] [address] [place] [address] Dr. Keturah Fisher MONO # 0.9 103/ul Critically high 0.3-0.8 [facility] Comment on above: Performed By: #### L IPA, CMP, CRP, NAT #### [facility] [address] [place] [address] Dr. Keturah Fisher Monocytes/100 WBC (Bld) 7.6 % Normal 1.7-12.0 [facility] Comment on above: Performed By: #### L IPA, CMP, CRP, NAT #### [facility] [address] [place] [address] Dr. Keturah Fisher NEUT # 8.5 103/ul Critically high 1.4-6.5 [facility] Comment on above: Performed By: #### L IPA, CMP, CRP, NAT #### [facility] [address] [place] [address] Dr. Keturah Fisher Neutrophils/100 WBC (Bld) 69.4 % Normal 43.0-75.0 [facility] Comment on above: Performed By: #### L IPA, CMP, CRP, NAT #### [facility] [address] [place] [address] Dr. Keturah Fisher Platelet mean volume (Bld) [Entitic vol] 9.5 fL Normal 9.5-13.5 [facility] Comment on above: Performed By: #### L IPA, CMP, CRP, NAT #### [facility] [address] [place] [address] Dr. Keturah Fisher PLT 261 103/ul Normal 150-450 [facility] Comment on above: Performed By: #### L IPA, CMP, CRP, NAT #### [facility] [address] [place] [address] Dr. Keturah Fisher RBC 4.29 106/ul Normal 4.20-5.40 [facility] Comment on above: Performed By: #### L IPA, CMP, CRP, NAT #### [facility] [address] [place] [address] Dr. Keturah Fisher WBC 12.2 103/ul Critically high 4.0-11.0 [facility] Comment on above: Performed By: #### L IPA, CMP, CRP, NAT #### [facility] [address] [place] [address] Dr. Keturah Fisher LIPASEon 08-22-2021 Lipase [Catalytic activity/Vol] 419.0 U/L Critically high 73.0-393.0 [facility] Comment on above: Performed By: #### C MP, NAT, LIPA #### [facility] [address] [place] [address] Dr. Keturah Fisher PROF 14(COMP METB)on 022 Albumin [Mass/Vol] 3.9 g/dL Normal 3.4-5.0 [facility] Comment on above: Performed By: #### C MP, NAT, LIPA #### [facility] [address] [address] [address] Keturah Fisher Albumin/Globulin [Mass ratio] 1.2 {ratio} Normal [facility] Comment on above: Performed By: #### C MP, NAT, LIPA #### [facility] [address] [address] [address] Keturah Fisher ALP [Catalytic activity/Vol] 137 U/L Critically high 46-116 [facility] Comment on above: Performed By: #### C MP, NAT, LIPA #### [facility] [address] [place] [address] Dr. Keturah Fisher ALT [Catalytic activity/Vol] 22 U/L Normal 14-59 [facility] Comment on above: Performed By: #### C MP, NAT, LIPA #### [facility] [address] [place] [address] Dr. Keturah Fisher Anion gap [Moles/Vol] 12.9 mmol/L Normal [facility] Comment on above: Performed By: #### C MP, NAT, LIPA #### [facility] [address] [place] [address] Dr. Keturah Fisher AST [Catalytic activity/Vol] 20 U/L Normal 15-37 [facility] Comment on above: Performed By: #### C MP, NAT, LIPA #### [facility] [address] [place] [address] Dr. Keturah Fisher Bilirubin [Mass/Vol] 0.2 mg/dL Normal 0.2-1.0 [facility] Comment on above: Performed By: #### C MP, NAT, LIPA #### [facility] [address] [place] [address] Dr. Keturah Fisher Calcium [Mass/Vol] 9.5 mg/dL Normal 8.5-10.1 [facility] Comment on above: Performed By: #### C MP, NAT, LIPA #### [facility] [address] [place] [address] Dr. Keturah Fisher Chloride [Moles/Vol] 104 mmol/L Normal 98-107 [facility] Comment on above: Performed By: #### C NAT MEDEL LIPA #### [facility] [address] [address] [address] Keturah Fisher CO2 [Moles/Vol] 23.7 mmol/L Normal 21.0-32.0 [facility] Comment on above: Performed By: #### C NAT MEDEL LIPA #### [facility] [address] [address] [address] Keturah Fisher Creatinine [Mass/Vol] 0.85 mg/dL Normal 0.55-1.02 [facility] Comment on above: Performed By: #### C NAT MEDEL LIPA #### [facility] [address] [place] [address] Dr. Keturah Fisher EGFR-AF [place] >60 Normal >=60 [facility] Comment on above: Performed By: #### C NAT MEDEL LIPA #### [facility] [address] [place] [address] Dr. Keturah Fisher EGFR-NON AF [place] >60 Normal >=60 [facility] Comment on above: Performed By: #### C NAT MEDEL LIPA #### [facility] [address] [place] [address] Dr. Keturah Fisher Globulin (S) [Mass/Vol] 3.3 g/dL Normal [facility] Comment on above: Performed By: #### C NAT MEDEL LIPA #### [facility] [address] [place] [address] Dr. Keturah Fisher Glucose [Mass/Vol] 130 mg/dL Critically high 74-106 [facility] Comment on above: Performed By: #### C NAT MEDEL LIPA #### [facility] [address] [place] [address] Dr. Keturah Fisher Potassium [Moles/Vol] 3.6 mmol/L Normal 3.5-5.1 [facility] Comment on above: Performed By: #### C NAT MEDEL LIPA #### [facility] [address] [address] [address] Keturah Fisher Protein [Mass/Vol] 7.2 g/dL Normal 6.4-8.2 [facility] Comment on above: Performed By: #### C NAT MEDEL, LIPA #### [facility] [address] [address] [address] Keturah Fisher Sodium [Moles/Vol] 137 mmol/L Normal 136-145 [facility] Comment on above: Performed By: #### C NAT MEDEL, LIPA #### [facility] [address] [address] [address] Keturah Fisher Urea nitrogen [Mass/Vol] 9.0 mg/dL Normal 7.0-18.0 [facility] Comment on above: Performed By: #### C NAT MEDEL LIPA #### [facility] [address] [address] [address] Keturah Fisher Urea nitrogen/Creatinine [Mass ratio] 10.6 mg/mg Normal [facility] Comment on above: Performed By: #### C NAT MEDEL, LIPA #### [facility] [address] [address] [address] Keturah Fisher XR ABD FLAT UP_PA [...] TRI HANSON Date: 2021-08-22 14:54 Normal [facility] CBC AUTO DIFFon 08-13-2021 BASO # 0.1 103/ul Normal 0.0-0.1 [facility] Comment on above: Performed By: #### C BC ####[facility] [address] [id number]. Keturah Fisher Basophils/100 WBC (Bld) 0.6 % Normal 0.2-2.0 [facility] Comment on above: Performed By: #### C BC ####[facility] [address] [id number]. Keturah Fisher EO # 0.1 103/ul Normal 0.0-0.7 [facility] Comment on above: Performed By: #### C BC ####[facility] [address] [place], [place] [id number]. Keturah Fisher Eosinophils/100 WBC (Bld) 1.1 % Normal 0.9-7.0 [facility] Comment on above: Performed By: #### C BC ####[facility] [address] [place], [place] [id number]. Keturah Fisher Erythrocyte distribution width (RBC) [Ratio] 12.6 % Normal 11.0-15.0 [facility] Comment on above: Performed By: #### C BC ####[facility] [address] [place], [place] [id number]. Keturah Fisher Hematocrit (Bld) [Volume fraction] 42.3 % Normal 36.0-48.0 [facility] Comment on above: Performed By: #### C BC ####[facility] [address] [place], [place] [id number]. Keturah Fisher Hemoglobin (Bld) [Mass/Vol] 14.1 g/dL Normal 12.0-16.0 [facility] Comment on above: Performed By: #### C BC ####[facility] [address] [id number]. Keturah Fisher IG # 0.03 10e3/ul Normal 0.00-0.03 [facility] Comment on above: Performed By: #### C BC ####[facility] [address] [place], [place] [id number]. Keturah Fisher IG % 0.3 % Normal 0.0-0.5 [facility] Comment on above: Performed By: #### C BC ####[facility] [address] [place], [place] [address]Ad. Keturah Fisher LYMPH # 2.4 103/ul Normal 1.2-3.8 [facility] Comment on above: Performed By: #### C BC ####[facility] [address] [place], [place] [address]Ur. Keturah Fisher Lymphocytes/100 WBC (Bld) 22.3 % Normal 20.5-60.0 [facility] Comment on above: Performed By: #### C BC ####[facility] [address] [id number]. Keturah Phillip MANUAL DIFF REQ NO Normal [facility] Comment on above: Performed By: #### C BC ####[facility] [address] [id number]. Keturah Fisher MCH (RBC) [Entitic mass] 32.5 pg Normal 26.7-34.0 [facility] Comment on above: Performed By: #### C BC ####[facility] [address] [id number]. Keturah Fisher MCHC (RBC) [Mass/Vol] 33.3 g/dL Normal 29.9-35.2 [facility] Comment on above: Performed By: #### C BC ####[facility] [address] [id number]. Keturah Fisher MCV (RBC) [Entitic vol] 97.5 fL Normal 81.0-99.0 [facility] Comment on above: Performed By: #### C BC ####[facility] [address] [id number]. Keturah Fisher MONO # 1.0 103/ul Critically high 0.3-0.8 [facility] Comment on above: Performed By: #### C BC ####[facility] [address] [id number]. Keturah Fisher Monocytes/100 WBC (Bld) 8.7 % Normal 1.7-12.0 [facility] Comment on above: Performed By: #### C BC ####[facility] [address] [id number]. Keturah Fisher NEUT # 7.3 103/ul Critically high 1.4-6.5 [facility] Comment on above: Performed By: #### C BC ####[facility] [address] [id number]. Keturah Fisher Neutrophils/100 WBC (Bld) 67.0 % Normal 43.0-75.0 [facility] Comment on above: Performed By: #### C BC ####[facility] [address] [address]Dr. Keturah Fisher Platelet mean volume (Bld) [Entitic vol] 9.5 fL Normal 9.5-13.5 [facility] Comment on above: Performed By: #### C BC ####[facility] [address] [address]Dr. Keturah Fisher PLT 272 103/ul Normal 150-450 [facility] Comment on above: Performed By: #### C BC ####[facility] [address] [id number]. Keturah Fisher RBC 4.34 106/ul Normal 4.20-5.40 [facility] Comment on above: Performed By: #### C BC ####[facility] [address] [address]Dr. Keturah Fisher WBC 10.9 103/ul Normal 4.0-11.0 [facility] Comment on above: Performed By: #### C BC ####[facility] [address] [place], [place] [address]Dr. Keturah Fisher CT ABD/PELV W CONon 08-14-19 [...] HEBERT MCPHERSON Date: 2021-08-13 17:14 Normal [facility] ER URINE PROFILEon 2 Bilirubin Ql (U) Negative Normal NEGATIVE [facility] Comment on above: Performed By: #### C BC #### [facility] [address] [place] [address] Dr. Keturah Fisher Clarity (U) CLEAR Normal CLEAR [facility] Comment on above: Performed By: #### C BC #### [facility] [address] [address] [address] Keturah Fisher Color (U) LT. YELLOW Normal YELLOW [facility] Comment on above: Performed By: #### C BC #### [facility] [address] [address] [address] Keturah Fisher ERUAHD A micrscopic examina tion will be performed if indicated. Normal [facility] Comment on above: Performed By: #### C BC #### [facility] [address] [address] [address] Keturah Fisher Glucose Ql (U) Negative Normal NEGATIVE [facility] Comment on above: Performed By: #### C BC #### [facility] [address] [place] [address] Dr. Keturah Fisher Hemoglobin Ql (U) Negative Normal NEGATIVE [facility] Comment on above: Performed By: #### C BC #### [facility] [address] [place] [address] Dr. Keturah Fisher Ketones Ql (U) Negative Normal NEGATIVE [facility] Comment on above: Performed By: #### C BC #### [facility] [address] [place] [address] Dr. Keturah Fisher LEUKOCYTES Negative Normal NEGATIVE [facility] Comment on above: Performed By: #### C BC #### [facility] [address] [place] [address] Dr. Keturah Fisher Nitrite Ql (U) Negative Normal NEGATIVE [facility] Comment on above: Performed By: #### C BC #### [facility] [address] [place] [address] Dr. Keturah Fisher pH (U) 5.5 [pH] Normal 5-9 [facility] Comment on above: Performed By: #### C BC #### [facility] [address] [place] [address] Dr. Keturah Fisher SPEC GRAVITY 1.010 Normal 1.005-<=1. 025 [facility] Comment on above: Performed By: #### C BC #### [facility] [address] [place] [address] Dr. Keturah Fisher UA PROTEIN Negative Normal NEGATIVE/ TRACE [facility] Comment on above: Performed By: #### C BC #### [facility] [address] [place] [address] Dr. Keturah Fisher UR MICRO IND NOT INDICATED Normal [facility] Comment on above: Performed By: #### C BC #### [facility] [address] [place] [address] Dr. Keturah Fisher Urobilinogen Qn (U) 0.2 {Marizol'U}/dL Normal 0.2 - 1. 0 [facility] Comment on above: Performed By: #### C BC #### [facility] [address] [place] [address] Dr. Keturah Fisher LIPASEon 08-13-2021 Lipase [Catalytic activity/Vol] 217.0 U/L Normal 73.0-393.0 [facility] Comment on above: Performed By: #### C BC #### [facility] [address] [place] [address] Dr. Keturah Fisher PROF 14(COMP METB)on 022 Albumin [Mass/Vol] 3.9 g/dL Normal 3.4-5.0 [facility] Comment on above: Performed By: #### C BC #### [facility] [address] [place] [address] Dr. Keturah Fisher Albumin/Globulin [Mass ratio] 1.1 {ratio} Normal [facility] Comment on above: Performed By: #### C BC #### [facility] [address] [place] [address] Dr. Keturah Fisher ALP [Catalytic activity/Vol] 140 U/L Critically high 46-116 [facility] Comment on above: Performed By: #### C BC #### [facility] [address] [place] [address] Dr. Keturah Fisher ALT [Catalytic activity/Vol] 24 U/L Normal 14-59 [facility] Comment on above: Performed By: #### C BC #### [facility] [address] [address] [address] Keturah Fisher Anion gap [Moles/Vol] 11.7 mmol/L Normal Th [facility] Comment on above: Performed By: #### C BC #### [facility] [address] [place] [address] Dr. Keturah Fisher AST [Catalytic activity/Vol] 19 U/L Normal 15-37 [facility] Comment on above: Performed By: #### C BC #### [facility] [address] [address] [address] Keturah Fisher Bilirubin [Mass/Vol] 0.2 mg/dL Normal 0.2-1.0 [facility] Comment on above: Performed By: #### C BC #### [facility] [address] [place] [address] Dr. Keturah Fisher Calcium [Mass/Vol] 9.9 mg/dL Normal 8.5-10.1 [facility] Comment on above: Performed By: #### C BC #### [facility] [address] [place] [address] Dr. Keturah Fisher Chloride [Moles/Vol] 105 mmol/L Normal 98-107 [facility] Comment on above: Performed By: #### C BC #### [facility] [address] [place] [address] Dr. Keturah Fisher CO2 [Moles/Vol] 29.1 mmol/L Normal 21.0-32.0 [facility] Comment on above: Performed By: #### C BC #### [facility] [address] [place] [address] Dr. Keturah Fisher Creatinine [Mass/Vol] 0.81 mg/dL Normal 0.55-1.02 [facility] Comment on above: Performed By: #### C BC #### [facility] [address] [place] [address] Dr. Keturah Fisher EGFR-AF [place] >60 Normal >=60 [facility] Comment on above: Performed By: #### C BC #### [facility] [address] [place] [address] Dr. Keturah Fisher EGFR-NON AF [place] >60 Normal >=60 [facility] Comment on above: Performed By: #### C BC #### [facility] [address] [place] [address] Dr. Keturah Fisher Globulin (S) [Mass/Vol] 3.4 g/dL Normal [facility] Comment on above: Performed By: #### C BC #### [facility] [address] [address] [address] Keturah Fisher Glucose [Mass/Vol] 87 mg/dL Normal 74-106 [facility] Comment on above: Performed By: #### C BC #### [facility] [address] [address] [address] Keturah Fisher Potassium [Moles/Vol] 3.8 mmol/L Normal 3.5-5.1 [facility] Comment on above: Performed By: #### C BC #### [facility] [address] [place] [address] Dr. Keturah Fisher Protein [Mass/Vol] 7.3 g/dL Normal 6.4-8.2 [facility] Comment on above: Performed By: #### C BC #### [facility] [address] [place] [address] Dr. Keturah Fisher Sodium [Moles/Vol] 142 mmol/L Normal 136-145 [facility] Comment on above: Performed By: #### C BC #### [facility] [address] [address] [address] Keturah Fisher Urea nitrogen [Mass/Vol] 11.0 mg/dL Normal 7.0-18.0 [facility] Comment on above: Performed By: #### C BC #### [facility] [address] [address] [address] Keturah Fisher Urea nitrogen/Creatinine [Mass ratio] 13.6 mg/mg Normal [facility] Comment on above: Performed By: #### C BC #### [facility] [address] [place] [address] Dr. Keturah Fisher Albumin [Mass/volume] in Ser um or PlasmaOrdered By: Keaton Barnard on 08-11-2021 Albumin [Mass/Vol] 3.4 g/dL 3.2-5.5 [facility] Basophils Auto (Bld) [#/Vol] Ordered By: Keaton Barnard on 08-11-2021 Basophils (Bld) [#/Vol] 0.1 10*3/uL 0.0-0.2 [facility] Basophils/100 WBC Auto (Bld) Ordered By: Keaton Barnard on 08-11-2021 Basophils/100 WBC (Bld) 0.9 % . [facility] Bilirubin Test strip Ql (U)O rdered By: Keaton Barnard on 08-11-2021 Bilirubin Ql (U) Negative Negative [facility] Blood hemoglobin measurement (mass/volume)Ordered By: Keaton Barnard on 08-11-2021 Hemoglobin (Bld) [Mass/Vol] 14.1 g/dL 11.8-15.4 [facility] Blood leukocytes automated c ount (number/volume)Ordered By: Keaton Barnard on 08-11-2021 WBC (Bld) [#/Vol] 9.7 10*3/uL 4.5-11.0 [facility] Color Auto (U)Ordered By: Luis Barnard on 08-11-2021 Color (U) Yellow Yellow [facility] Creatinine and Glomerular fi ltration rate.predicted panel (S/P/Bld)Ordered By: Keaton Barnard on 08-11-2021 Creatinine [Mass/Vol] 0.95 mg/dL 0.44-1.[address] [facility] Direct bilirubin measurement Ordered By: Keaton Barnard on 08-11-2021 Bilirubin.direct [Mass/Vol] mg/dL 0.0-0.4 [facility] Eosinophils Auto (Bld) [#/Vo l]Ordered By: Keaton Barnard on 08-11-2021 Eosinophils (Bld) [#/Vol] 0.1 10*3/uL 0.0-0.45 [facility] Eosinophils/100 WBC Auto (Bl d)Ordered By: Kaeton Barnard on 08-11-2021 Eosinophils/100 WBC (Bld) 1.3 % . [facility] Erythrocyte distribution wid th Auto (RBC) [Ratio]Ordered By: Keaton Barnard on 08-11-2021 Erythrocyte distribution width (RBC) [Ratio] 13.2 % 11.9-15.3 [facility] Estimated glomerular filtrat ion rate (GFR) non- AmericanOrdered By: Keaton Barnard on 08-11-2021 GFR/1.73 sq M.predicted among non-blacks MDRD (S/P/Bld) [Vol rate/Area] > 60 mL/Min [facility] Globulin Calc (S) [Mass/Vol] Ordered By: Keaton Barnard on 08-11-2021 Globulin (S) [Mass/Vol] 2.6 g/dL [facility] Hematocrit Auto (Bld) [Volum e fraction]Ordered By: Keaton Barnard on 08-11-2021 Hematocrit (Bld) [Volume fraction] 42.1 % 34.0-46.4 [facility] Ketones Auto test strip (U) [Mass/Vol]Ordered By: Keaton Barnard on 08-11-2021 Ketones (U) [Mass/Vol] Negative Negative [facility] - Chemistry and C hemistry - challengeOrdered By: Keaton Barnard on 08-11-2021 Lipase [Catalytic activity/Vol] 89.0 U/L 22-51 [facility] Laboratory - CoagulationOrde red By: Keaton Barnard on 08-11-2021 PT Coag (PPP) [Time] 12.5 s 9.0-12.9 [facility] - Hematology and Cell countsOrdered By: Keaton Barnard on 08-11-2021 Nucleated RBC/100 WBC (Bld) [Ratio] 0.1 % 0-0.5 [facility] Lymphocytes Auto (Bld) [#/Vo l]Ordered By: Keaton Barnard on 08-11-2021 Lymphocytes (Bld) [#/Vol] 2.5 10*3/uL 1.00-4.8 [facility] Lymphocytes/100 WBC Auto (Bl d)Ordered By: Keaton Barnard on 08-11-2021 Lymphocytes/100 WBC (Bld) 25.8 % . [facility] MCH Auto (RBC) [Entitic mass ]Ordered By: Keaton Barnard on 08-11-2021 MCH (RBC) [Entitic mass] 32.4 pg 24.7-34.3 [facility] MCHC Auto (RBC) [Mass/Vol]Or dered By: Keaton Barnard on 08-11-2021 MCHC (RBC) [Mass/Vol] 33.4 g/dL 32.0-35.[address] [facility] MCV Auto (RBC) [Entitic vol] Ordered By: Keaton Barnard on 08-11-2021 MCV (RBC) [Entitic vol] 96.8 fL 80-100 [facility] Monocytes Auto (Bld) [#/Vol] Ordered By: Keaton Barnard on 08-11-2021 Monocytes (Bld) [#/Vol] 0.8 10*3/uL 0.0-0.8 [facility] Monocytes/100 WBC Auto (Bld) Ordered By: Keaton Barnard on 08-11-2021 Monocytes/100 WBC (Bld) 8.7 % . [facility] Neutrophils Auto (Bld) [#/Vo l]Ordered By: Keaton Barnard on 08-11-2021 Neutrophils (Bld) [#/Vol] 6.1 10*3/uL 1.8-7.7 [facility] Neutrophils/100 WBC Auto (Bl d)Ordered By: Keaton Barnard on 08-11-2021 Neutrophils/100 WBC (Bld) 63.3 % . [facility] Nitrite Test strip Ql (U)Ord ered By: Keaton Barnard on 08-11-2021 Nitrite Ql (U) Negative Negative [facility] No Panel InformationOrdered By: Keaton Barnard on 08-11-2021 Estimated GFR () > 60 mL/Min [facility] Comment on above: GFR estimated refere nce range: According to KDOQI guidelines, <60 ml/min/1.73m2 is sufficient to diagnose a patient with chronic kidney disease. Pharmacy Creatinine Clearance (Chem 62.33 [facility] Platelet mean volume Auto (B ld) [Entitic vol]Ordered By: Keaton Barnard on 08-11-2021 Platelet mean volume (Bld) [Entitic vol] 8.0 fL 6.3-10.7 [facility] Platelet poor plasma interna tional normalized ratio (INR) by coagulation assay (relatOrdered By: Keaton Barnard on 08-11-2021 INR Coag (PPP) [Relative time] 1.1 {INR} [facility] Comment on above: INR Therapeutic [...] (Bld) [#/Vol] 252 10*3/uL 150-450 [facility] Protein Auto test strip (U) [Mass/Vol]Ordered By: Keaton Barnard on 08-11-2021 Protein (U) [Mass/Vol] Negative Negative [facility] Protein [Mass/volume] in Ser um or PlasmaOrdered By: Keaton Barnard on 08-11-2021 Protein [Mass/Vol] 6.0 g/dL 6.1-7.9 [facility] RBC Auto (Bld) [#/Vol]Ordere d By: Keaton Barnard on 08-11-2021 RBC (Bld) [#/Vol] 4.35 10*6/uL 3.60-5.00 [facility] Serum or plasma alanine hughes otransferase measurement without P-5'-P (enzymatic activiOrdered By: Keaton Barnard on 08-11-2021 ALT No additional P-5'-P [Catalytic activity/Vol] 12 U/L 10-60 [facility] Serum or plasma albumin/glob ulin mass ratioOrdered By: Keaton Barnard on 08-11-2021 Albumin/Globulin [Mass ratio] 1.3 {ratio} [facility] Serum or plasma alkaline jaqueline sphatase measurement (enzymatic activity/volume)Ordered By: Keaton Barnard on 08-11-2021 ALP [Catalytic activity/Vol] 98 U/L 32-92 [facility] Serum or plasma aspartate am inotransferase measurement (enzymatic activity/volume)Ordered By: Keaton Barnard on 08-11-2021 AST [Catalytic activity/Vol] 17 U/L 10-42 [facility] Serum or plasma calcium priscilla urement (mass/volume)Ordered By: Keaton Barnard on 08-11-2021 Calcium [Mass/Vol] 9.3 mg/dL 8.2-10.2 [facility] Serum or plasma chloride daron surement (moles/volume)Ordered By: Keaton Barnard on 08-11-2021 Chloride [Moles/Vol] 104 mmol/L 95-114 [facility] Serum or plasma glucose priscilla [...] on 08-11-2021 Bilirubin.indirect [Mass/Vol] TNP [facility] Comment on above: Test not performed Serum or plasma potassium me asurement (moles/volume)Ordered By: Keaton Barnard on 08-11-2021 Potassium [Moles/Vol] 3.8 mmol/L 3.5-5.[address] [facility] Serum or plasma sodium measu rement (moles/volume)Ordered By: Keaton Barnard on 08-11-2021 Sodium [Moles/Vol] 138 mmol/L 136-146 [facility] Serum or plasma total biliru bin measurement (mass/volume)Ordered By: Keaton Barnard on 08-11-2021 Bilirubin [Mass/Vol] 0.3 mg/dL 0.3-1.2 [facility] Serum or plasma total carbon dioxide measurement (moles/volume)Ordered By: Keaton Barnard on 08-11-2021 CO2 [Moles/Vol] 24.8 mmol/L 22.0-30.0 [facility] Serum or plasma urea nitroge n measurement (mass/volume)Ordered By: Keaton Barnard on 08-11-2021 Urea nitrogen [Mass/Vol] 10 mg/dL 11-29 [facility] Specific gravity Auto test s trip (U) [Rel density]Ordered By: Keaton Barnard on 08-11-2021 Specific gravity (U) [Rel density] 1.028 1.001-1.03 0 [facility] Troponin I.cardiac [Mass/vol ume] in Serum or Plasma by High sensitivity methodOrdered By: Keaton Barnard on 08-11-2021 Troponin I.cardiac High sensitivity method [Mass/Vol] 3 pg/mL 0-15 [facility] Urine clarity by refractomet ry automatedOrdered By: Keaton Barnard on 08-11-2021 Clarity Refractometry automated (U) Clear Clear [facility] Urine glucose measurement by automated test strip (mass/volume)Ordered By: Keaton Barnard on 08-11-2021 Glucose Auto test strip (U) [Mass/Vol] Normal mg/dL Normal [facility] Urine hemoglobin detection b y automated test stripOrdered By: Keaton Barnard on 08-11-2021 Hemoglobin Auto test strip Ql (U) Negative Negative [facility] Urine leukocyte esterase det ection by automated test stripOrdered By: Keaton Barnard on 08-11-2021 Leukocyte esterase Auto test strip Ql (U) Negative Negative [facility] Urobilinogen Auto test strip (U) [Mass/Vol]Ordered By: Keaton Barnard on 08-11-2021 Urobilinogen (U) [Mass/Vol] Normal mg/dL Normal [facility] pH Auto test strip (U)Ordere d By: Keaton Barnard on 08-11-2021 pH (U) 5.0 [pH] 5.0-9.0 [facility] AMYLASEon 07-31-2021 Amylase [Catalytic activity/Vol] 158 U/L Critically high 25-115 [facility] Comment on above: Performed By: #### L IPA, CMP, CRP, NAT #### [facility] [address] [place], [place] [address] Dr. Keturah Fisher CBC AUTO DIFFon 07-31-2021 BASO # 0.1 103/ul Normal 0.0-0.1 [facility] Comment on above: Performed By: #### C BC ####[facility] [address] [place], [place] [address]EbDr. Keturah Fisher Basophils/100 WBC (Bld) 0.7 % Normal 0.2-2.0 [facility] Comment on above: Performed By: #### C BC ####[facility] [address] [place] [address]Dr. Keturah Fisher EO # 0.1 103/ul Normal 0.0-0.7 [facility] Comment on above: Performed By: #### C BC ####[facility] [address] [place], [place] [address]Dr. Keturah Fisher Eosinophils/100 WBC (Bld) 0.9 % Normal 0.9-7.0 [facility] Comment on above: Performed By: #### C BC ####[facility] Youooupmri[address] [place], [place] [address]Dr. Keturah Fisher Erythrocyte distribution width (RBC) [Ratio] 12.7 % Normal 11.0-15.0 [facility] Comment on above: Performed By: #### C BC ####[facility] [address] [place], [place] [address]Dr. Keturah Fisher Hematocrit (Bld) [Volume fraction] 43.2 % Normal 36.0-48.0 [facility] Comment on above: Performed By: #### C BC ####[facility] Yas[address] [place], [place] [address]Dr. Keturah Fisher Hemoglobin (Bld) [Mass/Vol] 14.5 g/dL Normal 12.0-16.0 [facility] Comment on above: Performed By: #### C BC ####[facility] [address] [place], [place] [address]Dr. Keturah Fisher IG # 0.04 10e3/ul Critically high 0.00-0.03 [facility] Comment on above: Performed By: #### C BC ####[facility] [address] [place], [place] [address]Dr. Keturah Fisher IG % 0.4 % Normal 0.0-0.5 [facility] Comment on above: Performed By: #### C BC ####[facility] J[address] [place], [place] [id number]. Keturah Phillip LYMPH # 2.8 103/ul Normal 1.2-3.8 [facility] Comment on above: Performed By: #### C BC ####[facility] [address] [place] [address]Dr. Keturah Phillip Lymphocytes/100 WBC (Bld) 24.9 % Normal 20.5-60.0 [facility] Comment on above: Performed By: #### C BC ####[facility] [address] [place] [address]Dr. Elisaeli Fisher MANUAL DIFF REQ NO Normal [facility] Comment on above: Performed By: #### C BC ####[facility] [address] [place] [address]Dr. Keturah Phillip MCH (RBC) [Entitic mass] 32.7 pg Normal 26.7-34.0 [facility] Comment on above: Performed By: #### C BC ####[facility] [address] [place] [address]Dr. Keturah Phillip MCHC (RBC) [Mass/Vol] 33.6 g/dL Normal 29.9-35.2 [facility] Comment on above: Performed By: #### C BC ####[facility] [address] [place] [address]Dr. Elisaeli Fisher MCV (RBC) [Entitic vol] 97.5 fL Normal 81.0-99.0 [facility] Comment on above: Performed By: #### C BC ####[facility] [address] [place] [address]Dr. Keturah Phillip MONO # 0.9 103/ul Critically high 0.3-0.8 [facility] Comment on above: Performed By: #### C BC ####[facility] [address] [place] [address]Dr. Elisaeli Fisher Monocytes/100 WBC (Bld) 8.1 % Normal 1.7-12.0 [facility] Comment on above: Performed By: #### C BC ####[facility] [address] [place], [place] [address]Dr. Keturah Fisher NEUT # 7.3 103/ul Critically high 1.4-6.5 [facility] Comment on above: Performed By: #### C BC ####[facility] [address] [place] [id number]. Keturah Fisher Neutrophils/100 WBC (Bld) 65.0 % Normal 43.0-75.0 [facility] Comment on above: Performed By: #### C BC ####[facility] [address] [place] [id number]. Keturah Fisher Platelet mean volume (Bld) [Entitic vol] 10.0 fL Normal 9.5-13.5 [facility] Comment on above: Performed By: #### C BC ####[facility] [address] [place] [id number]. Keturah Fisher PLT 245 103/ul Normal 150-450 [facility] Comment on above: Performed By: #### C BC ####[facility] [address] [place] [id number]. Keturah Phillip RBC 4.43 106/ul Normal 4.20-5.40 [facility] Comment on above: Performed By: #### C BC ####[facility] [address] [place] [id number]. Keturah Fisher WBC 11.2 103/ul Critically high 4.0-11.0 [facility] Comment on above: Performed By: #### C BC ####[facility] [address] [place] [address]Dr. Keturah Fisher LIPASEon 07-31-2021 Lipase [Catalytic activity/Vol] 439.0 U/L Critically high 73.0-393.0 [facility] Comment on above: Performed By: #### L IPA, CMP, CRP, NAT #### [facility] [address] [place] [id number] [address] Keturah Fisher PROF 14(COMP METB)on Albumin [Mass/Vol] 3.6 g/dL Normal 3.4-5.0 [facility] Comment on above: Performed By: #### L IPA, CMP, CRP, NAT #### [facility] [address] [place] [address] Dr. Keturah Fisher Albumin/Globulin [Mass ratio] 1.1 {ratio} Normal [facility] Comment on above: Performed By: #### L IPA, CMP, CRP, NAT #### [facility] [address] [place] [address] Dr. Keturah Fisher ALP [Catalytic activity/Vol] 119 U/L Critically high 46-116 [facility] Comment on above: Performed By: #### L IPA, CMP, CRP, NAT #### [facility] [address] [place] [address] [address] Keturah Fisher ALT [Catalytic activity/Vol] 20 U/L Normal 14-59 [facility] Comment on above: Performed By: #### L IPA, CMP, CRP, NAT #### [facility] [address] [place] [address] Dr. Keturah Fisher Anion gap [Moles/Vol] 13.4 mmol/L Normal [facility] Comment on above: Performed By: #### L IPA, CMP, CRP, NAT #### [facility] [address] [place] [address] Dr. Keturah Fisher AST [Catalytic activity/Vol] 16 U/L Normal 15-37 [facility] Comment on above: Performed By: #### L IPA, CMP, CRP, NAT #### [facility] [address] [place] [address] Dr. Keturah Fisher Bilirubin [Mass/Vol] 0.1 mg/dL Critically low 0.2-1.0 [facility] Comment on above: Performed By: #### L IPA, CMP, CRP, NAT #### [facility] [address] [place] [address] Dr. Keturah Fisher Calcium [Mass/Vol] 8.9 mg/dL Normal 8.5-10.1 [facility] Comment on above: Performed By: #### L IPA, CMP, CRP, NAT #### [facility] [address] [place] [address] Dr. Keturah Fisher Chloride [Moles/Vol] 106 mmol/L Normal 98-107 [facility] Comment on above: Performed By: #### L IPA, CMP, CRP, NAT #### [facility] [address] [place] [address] [address] Keturah Fisher CO2 [Moles/Vol] 25.4 mmol/L Normal 21.0-32.0 [facility] Comment on above: Performed By: #### L IPA, CMP, CRP, NAT #### [facility] [address] [place] [address] [address] Keturah Fisher Creatinine [Mass/Vol] 0.73 mg/dL Normal 0.55-1.02 [facility] Comment on above: Performed By: #### L IPA, CMP, CRP, NAT #### [facility] [address] [place] [address] Dr. Keturah Fisher EGFR-AF NORTHER[place]ISH >60 Normal >=60 [facility] Comment on above: Performed By: #### L IPA, CMP, CRP, NAT #### [facility] [address] [place] [address] [address] Keturah Fisher EGFR-NON AF [place]THER[place] >60 Normal >=60 [facility] Comment on above: Performed By: #### L IPA, CMP, CRP, NAT #### [facility] [address] [place] [address] Dr. Keturah Fisher Globulin (S) [Mass/Vol] 3.2 g/dL Normal [facility] Comment on above: Performed By: #### L IPA, CMP, CRP, NAT #### [facility] [address] [place] [address] [address] Keturah Fisher Glucose [Mass/Vol] 105 mg/dL Normal 74-106 [facility] Comment on above: Performed By: #### L IPA, CMP, CRP, NAT #### [facility] [address] [place] [address] [address] Keturah Fisher Potassium [Moles/Vol] 3.8 mmol/L Normal 3.5-5.1 [facility] Comment on above: Performed By: #### L IPA, CMP, CRP, NAT #### [facility] [address] [place] [address] [address] Keturah Fisher Protein [Mass/Vol] 6.8 g/dL Normal 6.4-8.2 [facility] Comment on above: Performed By: #### L IPA, CMP, CRP, NAT #### [facility] [address] [place] [address] [address] Keturah Fisher Sodium [Moles/Vol] 141 mmol/L Normal 136-145 [facility] Comment on above: Performed By: #### L IPA, CMP, CRP, NAT #### [facility] [address] [place] [address] [address] Keturah Fisher Urea nitrogen [Mass/Vol] 12.0 mg/dL Normal 7.0-18.0 [facility] Comment on above: Performed By: #### L IPA, CMP, CRP, NAT #### [facility] [address] [place] [address] [address] Keturah Fisher Urea nitrogen/Creatinine [Mass ratio] 16.4 mg/mg Normal [facility] Comment on above: Performed By: #### L IPA, CMP, CRP, NAT #### [facility] [address] [place] [address] [address] Keturah Fisher TROPONIN, HIGH SENSITIVITYon 07-31-2021 HSTROP 4.2 pg/mL Normal 4.0-51.3 [facility] Comment on above: Result Comment: CUT- OFF POINTS HAVE BEEN ESTABLISHED BASED ON THE FOURTH UNIVERSAL DEFINITIONS OF MYOCARDIAL INFARCTION. THE UPPER REFERENCE LIMIT (URL) OF TROPONIN, DEFINED THE 99TH PERCENTILE OF cTnI DISTRIBUTION IN A REFERENCE POPULATION, HAS BEEN CONFIRMED THE DECISION THRESHOLD FOR SD DIAGNOSIS. Performed By: #### L IPA, CMP, CRP, NAT #### [facility] [address] [place] [address] [address] Keturah Fisher AMYLASEon 07-19-2021 Amylase [Catalytic activity/Vol] 198 U/L Critically high 25-115 [facility] Comment on above: Performed By: #### A MY, LIPA, CMP ####[facility] [address] [place] [address]Dr. Keturah Fisher CBC AUTO DIFFon 07-19-2021 BASO # 0.1 103/ul Normal 0.0-0.1 [facility] Comment on above: Performed By: #### C BC ####[facility] [address] [place], [place] [address]Dr. Keturah Phillip Basophils/100 WBC (Bld) 0.7 % Normal 0.2-2.0 [facility] Comment on above: Performed By: #### C BC ####[facility] [address] [place], [place] [address]Dr. Keturah Fisher EO # 0.1 103/ul Normal 0.0-0.7 [facility] Comment on above: Performed By: #### C BC ####[facility] [address] [place], [place] [address]Dr. Keturah Fisher Eosinophils/100 WBC (Bld) 1.0 % Normal 0.9-7.0 [facility] Comment on above: Performed By: #### C BC ####[facility] [address] [place], [place] [address]Dr. Keturah Fisher Erythrocyte distribution width (RBC) [Ratio] 12.5 % Normal 11.0-15.0 [facility] Comment on above: Performed By: #### C BC ####[facility] [address] [place], [place] [address]Dr. Keturah Fisher Hematocrit (Bld) [Volume fraction] 42.4 % Normal 36.0-48.0 [facility] Comment on above: Performed By: #### C BC ####[facility] [address] [place], [place] [address]Dr. Keturah Fisher Hemoglobin (Bld) [Mass/Vol] 14.2 g/dL Normal 12.0-16.0 [facility] Comment on above: Performed By: #### C BC ####[facility] [address] [place], [place] [address]Dr. Keturah Fisher IG # 0.03 10e3/ul Normal 0.00-0.03 [facility] Comment on above: Performed By: #### C BC ####[facility] [address] [place] [id number]. Keturah Fisher IG % 0.3 % Normal 0.0-0.5 [facility] Comment on above: Performed By: #### C BC ####[facility] [address] [place] [address]Dr. Keturah Fisher LYMPH # 3.0 103/ul Normal 1.2-3.8 [facility] Comment on above: Performed By: #### C BC ####[facility] [address] [place] [address]Dr. Keturah Fisher Lymphocytes/100 WBC (Bld) 29.5 % Normal 20.5-60.0 [facility] Comment on above: Performed By: #### C BC ####[facility] [address] [place], [place] [address]Dr. Keturah Fisher MANUAL DIFF REQ NO Normal [facility] Comment on above: Performed By: #### C BC ####[facility] [address] [place] [address]Dr. Keturah Phillip MCH (RBC) [Entitic mass] 32.8 pg Normal 26.7-34.0 [facility] Comment on above: Performed By: #### C BC ####[facility] [address] [place], [place] [address]Dr. Keturah Fisher MCHC (RBC) [Mass/Vol] 33.5 g/dL Normal 29.9-35.2 [facility] Comment on above: Performed By: #### C BC ####[facility] [address] [place], [place] [address]Dr. Keturah Fisher MCV (RBC) [Entitic vol] 97.9 fL Normal 81.0-99.0 [facility] Comment on above: Performed By: #### C BC ####[facility] [address] [place], [place] [address]Dr. Keturah Fisher MONO # 1.0 103/ul Critically high 0.3-0.8 [facility] Comment on above: Performed By: #### C BC ####[facility] [address] [place], [place] [address]Dr. Keturah Fisher Monocytes/100 WBC (Bld) 9.3 % Normal 1.7-12.0 [facility] Comment on above: Performed By: #### C BC ####[facility] [address] [place] [address]Dr. Keturah Fisher NEUT # 6.1 103/ul Normal 1.4-6.5 [facility] Comment on above: Performed By: #### C BC ####[facility] [address] [place] [address]Dr. Keturah Fisher Neutrophils/100 WBC (Bld) 59.2 % Normal 43.0-75.0 [facility] Comment on above: Performed By: #### C BC ####[facility] [address] [place] [address]Dr. Keturah Fisher Platelet mean volume (Bld) [Entitic vol] 9.8 fL Normal 9.5-13.5 [facility] Comment on above: Performed By: #### C BC ####[facility] [address] [place] [address]Dr. Keturah Fishre PLT 249 103/ul Normal 150-450 [facility] Comment on above: Performed By: #### C BC ####[facility] [address] [place] [address]Dr. Keturah Fisher RBC 4.33 106/ul Normal 4.20-5.40 [facility] Comment on above: Performed By: #### C BC ####[facility] [address] [place] [address]Dr. Keturah Fisher WBC 10.2 103/ul Normal 4.0-11.0 [facility] Comment on above: Performed By: #### C BC ####[facility] [address] [place] [address]Dr. Keturah Fisher LIPASEon 07-19-2021 Lipase [Catalytic activity/Vol] 554.0 U/L Critically high 73.0-393.0 [facility] Comment on above: Performed By: #### A MY, LIPA, CMP ####[facility] [address]fa[address] [place] [address]Dr. Keturah Fisher PROF 14(COMP METB)on 022 Albumin [Mass/Vol] 4.0 g/dL Normal 3.4-5.0 [facility] Comment on above: Performed By: #### A MY, LIPA, CMP ####[facility] [address] [place] [address]Dr. Keturah Fisher Albumin/Globulin [Mass ratio] 1.1 {ratio} Normal [facility] Comment on above: Performed By: #### A MY, LIPA, CMP ####[facility] [address] [place], [place] [address]Dr. Keturah Fisher ALP [Catalytic activity/Vol] 141 U/L Critically high 46-116 [facility] Comment on above: Performed By: #### A MY, LIPA, CMP ####[facility] [address] [place], [place] [address]Dr. Keturah Fisher ALT [Catalytic activity/Vol] 21 U/L Normal 14-59 [facility] Comment on above: Performed By: #### A MY, LIPA, CMP ####[facility] [address] [place], [place] [address]Dr. Keturah Fisher Anion gap [Moles/Vol] 10.3 mmol/L Normal [facility] Comment on above: Performed By: #### A MY, LIPA, CMP ####[facility] [address] [place], [place] [address]Dr. Keturah Fisher AST [Catalytic activity/Vol] 22 U/L Normal 15-37 [facility] Comment on above: Performed By: #### A MY, LIPA, CMP ####[facility] [address] [place] [address]Dr. Keturah Fisher Bilirubin [Mass/Vol] 0.3 mg/dL Normal 0.2-1.0 [facility] Comment on above: Performed By: #### A MY, LIPA, CMP ####[facility] [address] [place] [address]Dr. Keturah Fisher Calcium [Mass/Vol] 9.9 mg/dL Normal 8.5-10.1 [facility] Comment on above: Performed By: #### A ROB BERNSTEIN, CMP ####[facility] [address] [place] [address]Dr. Keturah Fisher Chloride [Moles/Vol] 103 mmol/L Normal 98-107 [facility] Comment on above: Performed By: #### A ROB BERNSTEIN, CMP ####[facility] [address] [place], [place] [address]Dr. Keturah Fisher CO2 [Moles/Vol] 27.6 mmol/L Normal 21.0-32.0 [facility] Comment on above: Performed By: #### A ROB BERNSTEIN, CMP ####[facility] [address] [place], [place] [address]Dr. Keturah Fisher Creatinine [Mass/Vol] 0.93 mg/dL Normal 0.55-1.02 [facility] Comment on above: Performed By: #### A ROB BERNSTEIN, CMP ####[facility] [address] [place], [place] [address]Dr. Keturah Fisher EGFR-AF [place] >60 Normal >=60 [facility] Comment on above: Performed By: #### A ROB BERNSTEIN, CMP ####[facility] [address] [place], [place] [address]Dr. Keturah Fisher EGFR-NON AF [place] >60 Normal >=60 [facility] Comment on above: Performed By: #### A ROB BERNSTEIN, CMP ####[facility] [address]te[address] [place], [place] [address]Dr. Keturah Fisehr Globulin (S) [Mass/Vol] 3.5 g/dL Normal [facility] Comment on above: Performed By: #### A ROB BERNSTEIN, CMP ####[facility] [address] [place], [place] [address]Dr. Keturah Fisher Glucose [Mass/Vol] 99 mg/dL Normal 74-106 [facility] Comment on above: Performed By: #### A REBECA BERNSTEINA, CMP ####[facility] [address] [place], [place] [address]Dr. Keturah Fisher Potassium [Moles/Vol] 3.9 mmol/L Normal 3.5-5.1 [facility] Comment on above: Performed By: #### A ROB BERNSTEIN, CMP ####[facility] [address] [place] [address]Dr. Keturah Fisher Protein [Mass/Vol] 7.5 g/dL Normal 6.4-8.2 [facility] Comment on above: Performed By: #### A ROB BERNSTEIN, CMP ####[facility] [address] [place] [address]Dr. Keturah Fisher Sodium [Moles/Vol] 137 mmol/L Normal 136-145 [facility] Comment on above: Performed By: #### A RBO BERNSTEIN, CMP ####[facility] [address] [place] [address]Dr. Keturah Fisher Urea nitrogen [Mass/Vol] 9.0 mg/dL Normal 7.0-18.0 [facility] Comment on above: Performed By: #### A ROB BERNSTEIN, CMP ####[facility] [address] [place] [address]Dr. Keturah Fisher Urea nitrogen/Creatinine [Mass ratio] 9.7 mg/mg Normal [facility] Comment on above: Performed By: #### A ROB BERNSTEIN, CMP ####[facility] [address] [place] [address]Dr. Keturah Fisher XR ABD FLAT UP_PA Jorje [...] LYNNE PERDOMO Date: 2021-07-19 16:57 Normal [facility] COVID Quick Testingon 2021 Result Positive Mobi Other ANES Marcial 11-13-2020 ANES POST HNO ID: [id number] Author: Ion Avila MD Service: Anesthesiology Author Type: Anesthesiologist Type: Anesthesia PostOp Filed: 11/13/2020 12:39 PM Note Text: POST ANESTHESIA EVALUATION NOTE SERVICE DATE: 11/13/2020 SERVICE TIME: 12:39p : 1970 Vitals: 11/13/20 1035 11/13/20 1212 Temp: 36.3 ?C (97.3 ?F) 36 ?C (96.8 ?F) 11/13/20 10311/13/20 1212 11/13/20 1220 BP: 117/65 115/70 120/73 [...] 13, 2020 TIME: 12:38 PM PAGER/CONTACT #: [phone] [facility] NURSING PROGon 11-13-2020 NURSING PROG HNO ID: [id number] Author: Viky Nguyen RN Service: Nursing Author [...] None Electronically Signed By: Yaquelin Nguyen RN [facility] NURSING PROG HNO ID: [id number] Author: Landy Smith RN Service: Nursing Author [...] By: Landy Smith RN In Department: [facility]2020 [facility] Telephone ([facility] [facility]) ----- CHIOMA RAINEY ([id number]) 1970 F Date Time Provider Department 11/07/20 NASREEN GORMAN [facility] During your visit today, we recorded [...] have family/friend present for procedure? transport home:Patient/patient u.s. representative was told that if they do [...] area. Any barriers to Patient learning: Patient/Patient Physical Therapy Director responded appropriately on phone. Type of instruction [...] Status:Closed by NASREEN GORMAN on 11/07/20 [facility] 03-26-2020 Amylase [Catalytic activity/Vol] 185 U/L High 28 - 100 U/L [place] CBC Auto Differentialon 03-09 Basophils (Bld) [#/Vol] 0.06 10*3/uL [place] Basophils/100 WBC (Bld) 1 % 0 - 2 % [place] Differential Type NOT REPORTED [place] Eosinophils (Bld) [#/Vol] 0.12 10*3/uL [place] Eosinophils/100 WBC (Bld) 1 % 1 - 4 % [place] Erythrocyte distribution width (RBC) [Ratio] 12.4 % 11.8 - 14.4 % [place] Hematocrit (Bld) [Volume fraction] 40.6 % 36.3 - 47.1 % [place] Hemoglobin (Bld) [Mass/Vol] 13.7 g/dL 11.9 - 15.1 g/dL [place] Immature granulocytes (Bld) [#/Vol] 0 % 0 [place] Immature granulocytes (Bld) [#/Vol] 10*3/uL [place] Lymphocytes (Bld) [#/Vol] 2.62 10*3/uL [place] Lymphocytes/100 WBC (Bld) 27 % 24 - 43 % [place] MCH (RBC) [Entitic mass] 33.4 pg 25.2 - 33.5 pg [place] MCHC (RBC) [Mass/Vol] 33.7 g/dL 28.4 - 34.8 g/dL [place] MCV (RBC) [Entitic vol] 99.0 fL 82.6 - 102.9 fL [place] Monocytes (Bld) [#/Vol] 0.78 10*3/uL [place] Monocytes/100 WBC (Bld) 8 % 3 - 12 % [place] Platelet mean volume (Bld) [Entitic vol] 9.4 fL 8.1 - 13.5 fL [place] Platelets (Bld) [#/Vol] 235 10*3/uL [place] Platelets (Bld) [#/Vol] NOT REPORTED [place] RBC (Bld) [#/Vol] 4.10 10*6/uL 3.95 - 5.11 m/uL [place] RBC morphology finding Nom (Bld) NOT REPORTED [place] Segmented neutrophils/100 WBC (Bld) 63 % 36 - 65 % [place] Segs Absolute 5.96 [place] WBC (Bld) [#/Vol] 9.6 10*3/uL [place] WBC (Bld) [#/Vol] 0.0 10*3/uL 0.0 per 100 WBC [place] WBC Morphology NOT REPORTED [place] Comprehensive Metabolic Pane l w/ Reflex to MGon 03-26-2020 Albumin [Mass/Vol] 4.3 g/dL 3.5 - 5.2 g/dL [place] Albumin/Globulin [Mass ratio] 1.7 {ratio} [place] ALP [Catalytic activity/Vol] 117 U/L High 35 - 104 U/L [place] ALT [Catalytic activity/Vol] 11 U/L 5 - 33 U/L [place] Anion gap [Moles/Vol] 9 mmol/L 9 - 17 mmol/L [place] AST [Catalytic activity/Vol] 18 U/L <32 [place] Bilirubin Ql (U) 0.15 mg/dL Low 0.3 - 1.2 mg/dL [place] Bun/Cre Ratio 12 [place] Calcium [Mass/Vol] 9.7 mg/dL 8.6 - 10. 4 mg/dL [place] Chloride [Moles/Vol] 102 mmol/L 98 - 10 7 mmol/L [place] CO2 [Moles/Vol] 25 mmol/L 20 - 31 mmol/L [place] Creatinine [Mass/Vol] 0.74 mg/dL 0.5 - 0.9 mg/dL [place] GFR >60 >60 mL/min [place] GFR Non- >60 >60 mL/min [place] Glucose [Mass/Vol] 94 mg/dL 70 - 99 mg/dL [place] Potassium [Moles/Vol] 4.2 mmol/L 3.7 - 5.3 mmol/L [place] Protein [Mass/Vol] 6.8 g/dL 6.4 - 8.3 g/dL [place] Sodium [Moles/Vol] 136 mmol/L 135 - 144 mmol/L [place] Urea nitrogen [Mass/Vol] 9 mg/dL 6 - 20 mg/dL [place] Lactic Acidon 03-26-2020 Lactate [Moles/Vol] 1.3 mmol/L 0.5 - 2. 2 mmol/L [place] Lipaseon 03-26-2020 Interpretation and review of laboratory results Abnormal [place] Lipase [Catalytic activity/Vol] 225 U/L Critically high 13 - 60 U/L [place] Metabolic Panelon 03-26-2020 GFR/1.73 sq M predicted among non-blacks MDRD (S/P/Bld) [Vol rate/Area] [place] Comment on above: Average GFR for 50-5 9 years old: 93 mL/min/1.73sq m Chronic Kidney Disease: <60 mL/min/1.73sq m Kidney failure: <15 mL/min/1.73sq m eGFR calculated using average adult body mass. Additional eGFR calculator available at: http://www.[employer]/multiple_crcl_2012.htm Stage 1: Some kidney damage normal GFR Stage 2: Mild kidney damage GFR 60-89 Stage 3: Moderate kidney damage GFR 30-59 Stage 4: Severe kidney damage GFR 15-29 Stage 5: Severe kidney damage GFR <15 ESRD - chronic treatment by dialysis or transplant Otheron 03-26-2020 Interpretation and review of laboratory results Abnormal [place] SPECIMEN REJECTIONon 021 Ordered Test CDP [place] Reason for Rejection Unable to perform testing: Specimen clotted. [place] Specimen source Nom (Unsp spec) .BLOOD [place] - NOT REPORTED [place] Urinalysis, reflex to micros copicon 03-26-2020 Bilirubin Urine Negative NEGATIVE [facility] [place] Color, UA YELLOW YELLOW [place] Glucose, Ur Negative NEGATIVE [place] Ketones Ql (U) Negative NEGATIVE [place] Leukocyte esterase Test strip Ql (U) Negative NEGATIVE [place] Nitrite, Urine Negative NEGATIVE [place] pH, UA 5.5 [place] Protein (U) [Mass/Vol] Negative NEGATIVE [place] Specific [place], UA 1.010 [place] Turbidity UA CLEAR CLEAR [place] Urinalysis Comments NOT REPORTED [place] Urine Hgb Negative NEGATIVE [place] Urobilinogen, Urine Normal Normal [place] CBC auto differentialon 08-07 Basophils (Bld) [#/Vol] 0.04 10*3/uL [place] Basophils/100 WBC (Bld) 1 % 0 - 2 % [place] Differential Type NOT REPORTED [place] Eosinophils (Bld) [#/Vol] 0.10 10*3/uL [place] Eosinophils/100 WBC (Bld) 1 % 1 - 4 % [place] Erythrocyte distribution width (RBC) [Ratio] 13.0 % 11.8 - 14.4 % [place] Hematocrit (Bld) [Volume fraction] 35.2 % Low 36.3 - 47.1 % [place] Hemoglobin (Bld) [Mass/Vol] 11.7 g/dL Low 11.9 - 15.1 g/dL [place] Immature granulocytes (Bld) [#/Vol] 10*3/uL [place] Immature granulocytes (Bld) [#/Vol] 0 % 0 [place] Interpretation and review of laboratory results Abnormal [place] Lymphocytes (Bld) [#/Vol] 1.87 10*3/uL [place] Lymphocytes/100 WBC (Bld) 22 % Low 24 - 43 % [place] MCH (RBC) [Entitic mass] 32.5 pg 25.2 - 33.5 pg [place] MCHC (RBC) [Mass/Vol] 33.2 g/dL 28.4 - 34.8 g/dL [place] MCV (RBC) [Entitic vol] 97.8 fL 82.6 - 102.9 fL [place] Monocytes (Bld) [#/Vol] 0.86 10*3/uL [place] Monocytes/100 WBC (Bld) 10 % 3 - 12 % [place] Platelet mean volume (Bld) [Entitic vol] 9.8 fL 8.1 - 13.5 fL [place] Platelets (Bld) [#/Vol] NOT REPORTED [place] Platelets (Bld) [#/Vol] 178 10*3/uL [place] RBC (Bld) [#/Vol] 3.60 10*6/uL Low 3.95 - 5.11 m/uL [place] RBC morphology finding Nom (Bld) NOT REPORTED [place] Segmented neutrophils/100 WBC (Bld) 66 % High 36 - 65 % [place] Segs Absolute 5.53 [place] WBC (Bld) [#/Vol] 0.0 10*3/uL 0.0 per 100 WBC [place] WBC (Bld) [#/Vol] 8.4 10*3/uL [place] WBC Morphology NOT REPORTED [place] Lipaseon 08-25-2019 Lipase [Catalytic activity/Vol] 42 U/L 13 - 60 U/L [place] CBC auto differentialon 08-07 Basophils (Bld) [#/Vol] 0.04 10*3/uL [place] Basophils/100 WBC (Bld) 1 % 0 - 2 % [place] Differential Type NOT REPORTED [place] Eosinophils (Bld) [#/Vol] 0.08 10*3/uL [place] Eosinophils/100 WBC (Bld) 1 % 1 - 4 % [place] Erythrocyte distribution width (RBC) [Ratio] 12.9 % 11.8 - 14.4 % [place] Hematocrit (Bld) [Volume fraction] 35.9 % Low 36.3 - 47.1 % [place] Hemoglobin (Bld) [Mass/Vol] 11.9 g/dL 11.9 - 15.1 g/dL [place] Immature granulocytes (Bld) [#/Vol] 0 % 0 [place] Immature granulocytes (Bld) [#/Vol] 0.03 10*3/uL [place] Interpretation and review of laboratory results Abnormal [place] Lymphocytes (Bld) [#/Vol] 1.79 10*3/uL [place] Lymphocytes/100 WBC (Bld) 22 % Low 24 - 43 % [place] MCH (RBC) [Entitic mass] 32.3 pg 25.2 - 33.5 pg [place] MCHC (RBC) [Mass/Vol] 33.1 g/dL 28.4 - 34.8 g/dL [place] MCV (RBC) [Entitic vol] 97.6 fL 82.6 - 102.9 fL [place] Monocytes (Bld) [#/Vol] 0.75 10*3/uL [place] Monocytes/100 WBC (Bld) 9 % 3 - 12 % [place] Platelet mean volume (Bld) [Entitic vol] 10.1 fL 8.1 - 13.5 fL [place] Platelets (Bld) [#/Vol] 176 10*3/uL [place] Platelets (Bld) [#/Vol] NOT REPORTED [place] RBC (Bld) [#/Vol] 3.68 10*6/uL Low 3.95 - 5.11 m/uL [place] RBC morphology finding Nom (Bld) NOT REPORTED [place] Segmented neutrophils/100 WBC (Bld) 67 % High 36 - 65 % [place] Segs Absolute 5.61 [place] WBC (Bld) [#/Vol] 0.0 10*3/uL 0.0 per 100 WBC [place] WBC (Bld) [#/Vol] 8.3 10*3/uL [place] WBC Morphology NOT REPORTED [place] Lipaseon 08-24-2019 Interpretation and review of laboratory results Abnormal [place] Lipase [Catalytic activity/Vol] 69 U/L High 13 - 60 U/L [place] CBC auto differentialon 08-07 Basophils (Bld) [#/Vol] 0.05 10*3/uL [place] Basophils/100 WBC (Bld) 1 % 0 - 2 % [place] Differential Type NOT REPORTED [place] Eosinophils (Bld) [#/Vol] 0.13 10*3/uL [place] Eosinophils/100 WBC (Bld) 2 % 1 - 4 % [place] Erythrocyte distribution width (RBC) [Ratio] 13.2 % 11.8 - 14.4 % [place] Hematocrit (Bld) [Volume fraction] 36.7 % 36.3 - 47.1 % [place] Hemoglobin (Bld) [Mass/Vol] 11.8 g/dL Low 11.9 - 15.1 g/dL [place] Immature granulocytes (Bld) [#/Vol] 0 % 0 [place] Immature granulocytes (Bld) [#/Vol] 10*3/uL [place] Interpretation and review of laboratory results Abnormal [place] Lymphocytes (Bld) [#/Vol] 2.39 10*3/uL [place] Lymphocytes/100 WBC (Bld) 28 % 24 - 43 % [place] MCH (RBC) [Entitic mass] 32.1 pg 25.2 - 33.5 pg [place] MCHC (RBC) [Mass/Vol] 32.2 g/dL 28.4 - 34.8 g/dL [place] MCV (RBC) [Entitic vol] 99.7 fL 82.6 - 102.9 fL [place] Monocytes (Bld) [#/Vol] 0.77 10*3/uL [place] Monocytes/100 WBC (Bld) 9 % 3 - 12 % [place] Platelet mean volume (Bld) [Entitic vol] 10.1 fL 8.1 - 13.5 fL [place] Platelets (Bld) [#/Vol] 174 10*3/uL [place] Platelets (Bld) [#/Vol] NOT REPORTED [place] RBC (Bld) [#/Vol] 3.68 10*6/uL Low 3.95 - 5.11 m/uL [place] RBC morphology finding Nom (Bld) NOT REPORTED [place] Segmented neutrophils/100 WBC (Bld) 60 % 36 - 65 % [place] Segs Absolute 5.22 [place] WBC (Bld) [#/Vol] 0.0 10*3/uL 0.0 per 100 WBC [place] WBC (Bld) [#/Vol] 8.6 10*3/uL [place] WBC Morphology NOT REPORTED [place] Comprehensive metabolic pane nimesh 08-23-2019 Albumin [Mass/Vol] 3.4 g/dL Low 3.5 - 5.2 g/dL [place] Albumin/Globulin [Mass ratio] 1.7 {ratio} [place] ALP [Catalytic activity/Vol] 102 U/L 35 - 104 U/L [place] ALT [Catalytic activity/Vol] 34 U/L High 5 - 33 U/L [place] Anion gap [Moles/Vol] 7 mmol/L Low 9 - 17 mmol/L [place] AST [Catalytic activity/Vol] 95 U/L High <32 [place] Bilirubin Ql (U) 0.46 mg/dL 0.3 - 1.2 mg/dL [place] Bun/Cre Ratio 11 [place] Calcium [Mass/Vol] 8.4 mg/dL Low 8.6 - 10. 4 mg/dL [place] Chloride [Moles/Vol] 109 mmol/L High 98 - 10 7 mmol/L [place] CO2 [Moles/Vol] 22 mmol/L 20 - 31 mmol/L [place] Creatinine [Mass/Vol] 0.66 mg/dL 0.5 - 0.9 mg/dL [place] GFR >60 >60 mL/min [place] GFR Non- >60 >60 mL/min [place] Glucose [Mass/Vol] 89 mg/dL 70 - 99 mg/dL [place] Potassium [Moles/Vol] 4.3 mmol/L 3.7 - 5.3 mmol/L [place] Protein [Mass/Vol] 5.4 g/dL Low 6.4 - 8.3 g/dL [place] Sodium [Moles/Vol] 138 mmol/L 135 - 144 mmol/L [place] Urea nitrogen [Mass/Vol] 7 mg/dL 6 - 20 mg/dL [place] Lipaseon 08-23-2019 Lipase [Catalytic activity/Vol] 96 U/L High 13 - 60 U/L [place] Metabolic Panelon 08-23-2019 GFR/1.73 sq M predicted among non-blacks MDRD (S/P/Bld) [Vol rate/Area] [place] Comment on above: Stage 1: Some [...] body mass. Additional eGFR calculator available at: http://www.[employer]/multiple_crcl_2012.htm Otheron 08-23-2019 Interpretation and review of laboratory results Abnormal [place] CBC Auto Differentialon 08-07 Basophils (Bld) [#/Vol] 0.06 10*3/uL [place] Basophils/100 WBC (Bld) 1 % 0 - 2 % [place] Differential Type NOT REPORTED [place] Eosinophils (Bld) [#/Vol] 0.11 10*3/uL [place] Eosinophils/100 WBC (Bld) 1 % 1 - 4 % [place] Erythrocyte distribution width (RBC) [Ratio] 13.2 % 11.8 - 14.4 % [place] Hematocrit (Bld) [Volume fraction] 41.8 % 36.3 - 47.1 % [place] Hemoglobin (Bld) [Mass/Vol] 13.7 g/dL 11.9 - 15.1 g/dL [place] Immature granulocytes (Bld) [#/Vol] 0.03 10*3/uL [place] Immature granulocytes (Bld) [#/Vol] 0 % 0 [place] Interpretation and review of laboratory results Abnormal [place] Lymphocytes (Bld) [#/Vol] 2.23 10*3/uL [place] Lymphocytes/100 WBC (Bld) 24 % 24 - 43 % [place] MCH (RBC) [Entitic mass] 32.6 pg 25.2 - 33.5 pg [place] MCHC (RBC) [Mass/Vol] 32.8 g/dL 28.4 - 34.8 g/dL [place] MCV (RBC) [Entitic vol] 99.5 fL 82.6 - 102.9 fL [place] Monocytes (Bld) [#/Vol] 0.72 10*3/uL [place] Monocytes/100 WBC (Bld) 8 % 3 - 12 % [place] Platelet mean volume (Bld) [Entitic vol] 10.0 fL 8.1 - 13.5 fL [place] Platelets (Bld) [#/Vol] NOT REPORTED [place] Platelets (Bld) [#/Vol] 213 10*3/uL [place] RBC (Bld) [#/Vol] 4.20 10*6/uL 3.95 - 5.11 m/uL [place] RBC morphology finding Nom (Bld) NOT REPORTED [place] Segmented neutrophils/100 WBC (Bld) 66 % High 36 - 65 % [place] Segs Absolute 6.22 [place], [place] WBC (Bld) [#/Vol] 0.0 10*3/uL 0.0 per 100 WBC [place] WBC (Bld) [#/Vol] 9.4 10*3/uL [place] WBC Morphology NOT REPORTED [place] Comprehensive Metabolic Pane nimesh 08-22-2019 Albumin [Mass/Vol] 4.1 g/dL 3.5 - 5.2 g/dL [place] Albumin/Globulin [Mass ratio] 1.6 {ratio} [place] ALP [Catalytic activity/Vol] 109 U/L High 35 - 104 U/L [place] ALT [Catalytic activity/Vol] 13 U/L 5 - 33 U/L [place] Anion gap [Moles/Vol] 9 mmol/L 9 - 17 mmol/L [place] AST [Catalytic activity/Vol] 22 U/L <32 [place] Bilirubin Ql (U) <0.10 Low 0.3 - 1.2 mg/dL [place] Bun/Cre Ratio 13 [place] Calcium [Mass/Vol] 9.2 mg/dL 8.6 - 10. 4 mg/dL [place] Chloride [Moles/Vol] 103 mmol/L 98 - 10 7 mmol/L [place] CO2 [Moles/Vol] 24 mmol/L 20 - 31 mmol/L [place] Creatinine [Mass/Vol] 0.63 mg/dL 0.5 - 0.9 mg/dL [place] GFR >60 >60 mL/min [place] GFR Non- >60 >60 mL/min [place] Glucose [Mass/Vol] 92 mg/dL 70 - 99 mg/dL [place] Interpretation and review of laboratory results Abnormal [place] Potassium [Moles/Vol] 3.8 mmol/L 3.7 - 5.3 mmol/L [place] Protein [Mass/Vol] 6.7 g/dL 6.4 - 8.3 g/dL [place] Sodium [Moles/Vol] 136 mmol/L 135 - 144 mmol/L [place] Urea nitrogen [Mass/Vol] 8 mg/dL 6 - 20 mg/dL [place] Lactic Acid, Plasmaon 2019 Lactate [Moles/Vol] 1.5 mmol/L 0.5 - 2. 2 mmol/L [place] Lactic Acid, Whole Blood NOT REPORTED 0.7 - 2.1 mmol/L [place] Lipaseon 08-22-2019 Interpretation and review of laboratory results Abnormal [place] Lipase [Catalytic activity/Vol] 255 U/L Critically high 13 - 60 U/L [place] Metabolic Panelon 08-22-2019 GFR/1.73 sq M predicted among non-blacks MDRD (S/P/Bld) [Vol rate/Area] [place] Comment on above: Average GFR for 50-5 9 years old: 93 mL/min/1.73sq m Chronic Kidney Disease: <60 mL/min/1.73sq m Kidney failure: <15 mL/min/1.73sq m eGFR calculated using average adult body mass. Additional eGFR calculator available at: http://www.[employer]/multiple_crcl_2012.htm Stage 1: Some kidney damage normal GFR Stage 2: Mild kidney damage GFR 60-89 Stage 3: Moderate kidney damage GFR 30-59 Stage 4: Severe kidney damage GFR 15-29 Stage 5: Severe kidney damage GFR <15 ESRD - chronic treatment by dialysis or transplant Urinalysis with Microscopico n 08-22-2019 Amorphous, UA NOT REPORTED None [place] Bacteria, UA NOT REPORTED None [place], [place] Bilirubin Urine Negative NEGATIVE [place] Casts UA NOT REPORTED /LPF [place] Color, UA YELLOW YELLOW [place] Crystals, UA NOT REPORTED None /HPF [place] Epithelial Cells UA 2 TO 5 [place] Glucose, Ur Negative NEGATIVE [place] Interpretation and review of laboratory results Abnormal [place] Ketones Ql (U) Negative NEGATIVE [place] Leukocyte esterase Test strip Ql (U) Negative NEGATIVE [place] Mucus, UA NOT REPORTED None [place] Nitrite, Urine Negative NEGATIVE [place] Other Observations UA NOT REPORTED NOT REQ. M [place] pH, UA 6.0 [place] Protein (U) [Mass/Vol] Negative NEGATIVE [place] RBC (U) [#/Vol] None [place] Renal Epithelial, UA NOT REPORTED 0 /HPF [place] Specific [place], UA <1.005 Low [place] Trichomonas, UA NOT REPORTED None [facility] [place] Turbidity UA CLEAR CLEAR [place] Urinalysis Comments NOT REPORTED [place] Urine Hgb Negative NEGATIVE [place] Urobilinogen, Urine Normal Normal [place] WBC, UA None [place] Yeast, UA NOT REPORTED None [place] - [place] CBC WITH AUTO DIFFERENTIALon 03-04-2018 Basophils [...] Invalid Interpretation Code >=60 mL/min/1.7 3 m2 [facility] [...] U/L High 15 - 6 5 U/L [facility] Otheron 03-04-2018 Extra Tube [...] [facility] Microscopic examinat ion is [...] Procedure Abnormality Status --------- ------ CBC Auto Differential[[id number]] Abnormal Final result Please view results for these tests on the individual orders. Invalid Interpretation Code [facility] CT ABDOMEN PELVIS WITH IV [...] and demonstrated a prominent signal loss on [id number] images on MRI performed 09/06/2014, compatible with [...] ThuAug 24, 2017 4:03:34 PM EDT Normal [facility] Comment on above: Order Comment: [...] and demonstrated a prominent signal loss on [id number] images on MRI performed 09/06/2014, compatible with [...] probably remain. 5. Small left adrenal adenoma. [employer] Workstation ID: [id number] Invalid Interpretation Code Marco [facility] [facility] CT Abdomen Pelvis With IV Contrast [...] and demonstrated a prominent signal loss on [id number] images on MRI performed 09/06/2014, compatible with [...] suspicious focal osseous lesions. Invalid Interpretation Code [employer] [facility] CT Abdomen Pelvis With IV Contrast [...] probably remain. 5. Small left adrenal adenoma. [employer] [facility] Workstation ID: [id number] Invalid Interpretation Code [employer] [facility] Hepatic Function Panel (LFT) on 08-24-2017 [...] U/L [facility] Yermo Topon 08-24-2017 Yermo Top Invalid Interpretation Code [facility] [place] Drawon 08-24-2017 Creatinine The following orders were created for panel order [place] Draw. Procedure Abnormality Status --------- ------ Gold Top[[id number]] Final result Light Blue Top[[id number]] Final result Yermo Top[[id number]] Final result Please view results for these [...] 5 /hpf High 0 - 4 [facility] Transitional Epithelial <1 Invalid Interpretation [...] [facility] Urinalysis Microscopic examinat ion [...] [facility] CBC Auto Differentialon Basophils 0.07 K/mcL [...] 46.1 % High 36 - 46 % [facility] Hemoglobin (HGB) 16.1 g/dL High 12 - 16 g/dL [facility] IG Absolute 0.02 K/mcL Invalid Interpretation Code 0.00 - 0.30 [facility] IG Percent 0.20 % Invalid Interpretation Code [facility] Lymphocytes 1.75 K/mcL Invalid Interpretation Code 0.90 - 4.00 [facility] Lymphocytes/100 leukocytes 17.9 % Invalid Interpretation Code [...] Procedure Abnormality Status --------- ------ CBC Auto Differential[[id number]] Abnormal Final result Please view results for these tests on the individual orders. Invalid Interpretation Code [facility] Hepatic Function Panel (LFT) on [...] U/L [facility] [place] Drawon 06-09-2017 Creatinine The following orders were created for panel order [place] Draw. Procedure Abnormality Status --------- ------ Urine Container[[id number]] Final result Please view results for these tests on the individual orders. Invalid Interpretation Code [facility] Urinalysison 06-09-2017 Bilirubin, Urine Negative [...] Urine, urobilinogen 2.0 mg/dL Abnormal <2.0 [facility] WBCs, Urine 1 /hpf Invalid Interpretation Code 0 - 5 [facility] Urinalysis Microscopic examinat ion [...] (RBC) 3.76 M/mcL Low 4.00 - 5.20 [facility] [...] Ratio 9.4 mg/mg Low 10.0 - 20.0 [facility] Calcium 8.4 mg/dL Invalid [...] [facility] CBC Auto Differentialon Basophils [...] 48.5 % High 36 - 46 % [facility] Hemoglobin (HGB) 16.6 g/dL High 12 [...] Procedure Abnormality Status --------- ------ CBC Auto Differential[[id number]] Abnormal Final result Please view results for these tests on the individual orders. Invalid Interpretation Code [facility] CT ABDOMEN PELVIS WITH IV [...] appendix in the left lower pelvis.Workstation ID: [id number] by: ERROL ANN on ThuMay 14, 2017 4:08:10 PM ESTTranscribed by: ERROL ANN on ThuMay 14, 2017 4:08:10 PM ESTFinalized by: ERROL ANN on ThuMay 14, 2017 4:08:10 PM EST Normal [facility] Comment on above: Order Comment: [...] at L1-L2 and L4-L5. Invalid Interpretation Code [employer] [facility] CT Abdomen Pelvis With IV Contrast Only Interface, Rad In Fermentalg Speechq - 05/14/2017 4:10 PM EST EXAMINATION: [...] in the left lower pelvis. Workstation ID: [id number] Invalid Interpretation Code [employer] [facility] CT Abdomen Pelvis With IV Contrast [...] in the left lower pelvis. Workstation ID: [id number] Invalid Interpretation Code [employer] [facility] Ruff Topon 05-14-2017 Extra Tube Hold [...] U/L [facility] Yermo Topon 05-14-2017 Yermo Top Invalid Interpretation Code [facility] [place] Drawon 05-14-2017 Creatinine The following orders were created for panel order [place] Draw. Procedure Abnormality Status --------- ------ Gold Top[[id number]] Final result Light Blue Top[[id number]] Final result Ruff Top[[id number]] Final result Yermo Top[[id number]] Final result Please view results for these tests on the individual orders. Invalid [facility]ation [facility] 05-14-2017 Bilirubin, Urine Negative Invalid Interpretation [...] [facility] Urinalysis Microscopic examinat ion [...] 93 /min Peter Escalera MD Work Phone: [facility] 04-07-2024 16:14-0500 SaO2% (BldA) [Mass fraction] 100 % Peter Escalera MD Work Phone: [facility] 04-07-2024 13:10-0500 Body height 157.5 cm Peter Escalera MD Work Phone: [facility] 04-07-2024 13:10-0500 Body mass index (BMI) [Ratio] 22.86 kg/m2 Peter Escalera MD Work Phone: [facility] 04-07-2024 13:10-0500 Body temperature 97.9 [degF] Peter Escalera MD Work Phone: [facility] 04-07-2024 13:10-0500 Body weight 56.7 kg Peter Escalera MD Work Phone: [facility] 04-07-2024 13:10-0500 Diastolic blood pressure 88 mm[Hg] Peter Escalera MD Work Phone: [facility] 04-07-2024 13:10-0500 Respiratory rate 16 /min Peter Escalera MD Work Phone: [facility] 04-07-2024 13:10-0500 Systolic blood pressure 139 mm[Hg] Peter Escalera MD Work Phone: [facility] 01-19-2024 11:30-0500 Diastolic blood pressure 63 mm[Hg] Sabrina Dee MD, MPH Work Phone: [facility] 01-19-2024 11:30-0500 Heart rate 73 /min Sabrina Dee MD, MPH Work Phone: [facility] 01-19-2024 11:30-0500 Respiratory rate 18 /min Sabrina Dee MD, MPH Work Phone: [facility] 01-19-2024 11:30-0500 SaO2% (BldA) [Mass fraction] 99 % Sabrina Dee MD, MPH Work Phone: [facility] 01-19-2024 11:30-0500 Systolic blood pressure 120 mm[Hg] Sabrina Dee MD, MPH Work Phone: [facility] 01-19-2024 09:54-0500 Body temperature 98.01 [degF] Sabrina Dee MD, MPH Work Phone: [facility] 01-07-2024 16:13-0400 Diastolic blood pressure 41 mm[Hg] [facility] 01-07-2024 16:13-0400 Heart rate 82 /min [facility] 01-07-2024 16:13-0400 Respiratory rate 15 /min [facility] 01-07-2024 16:13-0400 Systolic blood pressure 127 mm[Hg] [facility] 01-07-2024 14:14-0400 Body height 157.5 cm [facility] 01-07-2024 14:14-0400 Body mass index (BMI) [Ratio] 21.95 kg/m2 [facility] [employer] 01-07-2024 14:14-0400 Body temperature 98.1 [degF] [facility] [employer] 01-07-2024 14:14-0400 Body weight 54.43 kg [facility] 01-07-2024 14:14-0400 SaO2% (BldA) [Mass fraction] 99 % [facility] [employer] 09-29-2023 21:39-0400 Heart rate 102 /min [facility] [employer] 09-29-2023 21:29-0400 SaO2% (BldA) [Mass fraction] 96 % [facility] 09-29-2023 20:32-0400 Diastolic blood pressure 94 mm[Hg] [facility] 09-29-2023 20:32-0400 Systolic blood pressure 124 mm[Hg] [facility] 09-29-2023 18:57-0400 Body height 157.5 cm [facility] [employer] 09-29-2023 18:57-0400 Body mass index (BMI) [Ratio] 22.86 kg/m2 [facility] 09-29-2023 18:57-0400 Body temperature 98.1 [degF] [facility] [employer] 09-29-2023 18:57-0400 Body weight 56.7 kg [facility] 09-29-2023 18:57-0400 Respiratory rate 18 /min [facility] 09-08-2023 09:00-0400 Diastolic blood pressure 54 mm[Hg] Sabrina Dee MD, MPH Work Phone: [facility] 09-08-2023 09:00-0400 Heart rate 83 /min Sabrina Dee MD, MPH Work Phone: [facility] 09-08-2023 09:00-0400 Respiratory rate 13 /min Sabrina Dee MD, MPH Work Phone: [facility] 09-08-2023 09:00-0400 SaO2% (BldA) [Mass fraction] 95 % Sabrina Dee MD, MPH Work Phone: [facility] 09-08-2023 09:00-0400 Systolic blood pressure 94 mm[Hg] Sabrina Dee MD, MPH Work Phone: [facility] 09-08-2023 08:04-0400 Body temperature 97.7 [degF] Sabrina Dee MD, MPH Work Phone: [facility] 09-08-2023 06:43-0400 Body height 157.5 cm Sabrina Dee MD, MPH Work Phone: [facility] 05-11-2023 09:01-0500 Body height 157.5 cm Sabrina Dee MD, MPH Work Phone: [facility] 05-11-2023 09:01-0500 Body mass index (BMI) [Ratio] 21 kg/m2 Sabrina Dee MD, MPH Work Phone: [facility] 05-11-2023 09:01-0500 Body weight 52.07 kg Sabrina Dee MD, MPH Work Phone: [facility] 05-11-2023 09:01-0500 Diastolic blood pressure 48 mm[Hg] Sabrina Dee MD, MPH Work Phone: [facility] 05-11-2023 09:01-0500 Heart rate 107 /min Sabrina Dee MD, MPH Work Phone: [facility] 05-11-2023 09:01-0500 SaO2% (BldA) [Mass fraction] 97 % Sabrina Dee MD, MPH Work Phone: [facility] 05-11-2023 09:01-0500 Systolic blood pressure 110 mm[Hg] Sabrina Dee MD, MPH Work Phone: [facility] 04-18-2023 17:39-0500 Diastolic blood pressure 79 mm[Hg] [facility] 04-18-2023 17:39-0500 Heart rate 114 /min [facility] 04-18-2023 17:39-0500 Respiratory rate 16 /min [facility] 04-18-2023 17:39-0500 SaO2% (BldA) [Mass fraction] 98 % [facility] 04-18-2023 17:39-0500 Systolic blood pressure 168 mm[Hg] [facility] 04-18-2023 15:29-0500 Body height 157.48 cm [facility] 04-18-2023 15:29-0500 Body temperature 99.3 [degF] [facility] 04-18-2023 15:29-0500 Body weight 51.25 kg [facility] 04-11-2023 23:50-0500 Diastolic blood pressure 82 mm[Hg] [facility] 04-11-2023 23:50-0500 Heart rate 106 /min [facility] 04-11-2023 23:50-0500 SaO2% (BldA) [Mass fraction] 97 % [facility] 04-11-2023 23:50-0500 Systolic blood pressure 151 mm[Hg] [facility] 04-11-2023 22:25-0500 Respiratory rate 18 /min [facility] 04-11-2023 21:20-0500 Body height 157.48 cm [facility] 04-11-2023 21:20-0500 Body temperature 97.2 [degF] [facility] 04-11-2023 21:20-0500 Body weight 52 kg [facility] 04-02-2023 19:20-0500 Diastolic blood pressure 74 mm[Hg] [facility] 04-02-2023 19:20-0500 Heart rate 91 /min [facility] 04-02-2023 19:20-0500 Respiratory rate 18 /min [facility] 04-02-2023 19:20-0500 SaO2% (BldA) [Mass fraction] 96 % [facility] 04-02-2023 19:20-0500 Systolic blood pressure 137 mm[Hg] [facility] 04-02-2023 13:45-0500 Body height 157.48 cm [facility] 04-02-2023 13:45-0500 Body temperature 97.6 [degF] [facility] 04-02-2023 13:45-0500 Body weight 54 kg [facility] 11-09-2022 16:30-0400 Diastolic blood pressure 81 mm[Hg] [facility] 11-09-2022 16:30-0400 Heart rate 78 /min [facility] 11-09-2022 16:30-0400 Respiratory rate 18 /min [facility] 11-09-2022 16:30-0400 SaO2% (BldA) [Mass fraction] 99 % [facility] 11-09-2022 16:30-0400 Systolic blood pressure 141 mm[Hg] [facility] 11-09-2022 13:47-0400 Body height 160.02 cm [facility] 11-09-2022 13:47-0400 Body temperature 98.2 [degF] [facility] 11-09-2022 13:47-0400 Body weight 54.2 kg [facility] 08-12-2022 13:15-0400 Diastolic blood pressure 68 mm[Hg] Sabrina Dee MD, MPH Work Phone: [facility] 08-12-2022 13:15-0400 Heart rate 67 /min Sabrina Dee MD, MPH Work Phone: [facility] 08-12-2022 13:15-0400 Respiratory rate 22 /min Sabrina Dee MD, MPH Work Phone: [facility] 08-12-2022 13:15-0400 SaO2% (BldA) [Mass fraction] 99 % Sabrina Dee MD, MPH Work Phone: [facility] 08-12-2022 13:15-0400 Systolic blood pressure 142 mm[Hg] Sabrina Dee MD, MPH Work Phone: [facility] 08-12-2022 11:45-0400 Body temperature 97.81 [degF] Sabrina Dee MD, MPH Work Phone: [facility] 08-12-2022 10:34-0400 Body height 157.5 cm Sabrina Dee MD, MPH Work Phone: [facility] 06-16-2022 10:52-0400 Body mass index (BMI) [Ratio] 23.41 kg/m2 Sabrina Dee MD, MPH Work Phone: [facility] 06-16-2022 10:52-0400 Body weight 58.06 kg Sabrina Dee MD, MPH Work Phone: [facility] 06-16-2022 10:52-0400 Diastolic blood pressure 68 mm[Hg] Sabrina Dee MD, MPH Work Phone: [facility] 06-16-2022 10:52-0400 Heart rate 83 /min Sabrina Dee MD, MPH Work Phone: [facility] 06-16-2022 10:52-0400 SaO2% (BldA) [Mass fraction] 98 % Sabrina Dee MD, MPH Work Phone: [facility] 06-16-2022 10:52-0400 Systolic blood pressure 122 mm[Hg] Sabrina Dee MD, MPH Work Phone: [facility] 03-22-2022 16:51-0500 Diastolic blood pressure 61 mm[Hg] [facility] 03-22-2022 16:51-0500 Heart rate 98 /min [facility] 03-22-2022 16:51-0500 Respiratory rate 20 /min [facility] 03-22-2022 16:51-0500 SaO2% (BldA) [Mass fraction] 98 % [facility] 03-22-2022 16:51-0500 Systolic blood pressure 149 mm[Hg] [facility] 03-22-2022 14:59-0500 Body height 157.48 cm [facility] 03-22-2022 14:59-0500 Body temperature 97.9 [degF] [facility] 03-22-2022 14:59-0500 Body weight 56 kg [facility] 12-16-2021 11:53-0400 Body height 157.5 cm Sabrina Dee MD, MPH Work Phone: [facility] 12-16-2021 11:53-0400 Body mass index (BMI) [Ratio] 22.5 kg/m2 Sabrina Dee MD, MPH Work Phone: [facility] 12-16-2021 11:53-0400 Body weight 55.79 kg Sabrina Dee MD, MPH Work Phone: [facility] 12-16-2021 11:53-0400 Diastolic blood pressure 72 mm[Hg] Sabrina Dee MD, MPH Work Phone: [facility] 12-16-2021 11:53-0400 Heart rate 80 /min Sabrina Dee MD, MPH Work Phone: [facility] 12-16-2021 11:53-0400 SaO2% (BldA) [Mass fraction] 98 % Sabrina Dee MD, MPH Work Phone: [facility] 12-16-2021 11:53-0400 Systolic blood pressure 118 mm[Hg] Sabrina Dee MD, MPH Work Phone: [facility] 10-09-2021 20:00-0400 Body temperature 98.3 [degF] [facility] 10-09-2021 20:00-0400 Diastolic blood pressure 68 mm[Hg] [facility] 10-09-2021 20:00-0400 Heart rate 86 /min [facility] 10-09-2021 20:00-0400 Respiratory rate 20 /min [facility] 10-09-2021 20:00-0400 SaO2% (BldA) [Mass fraction] 100 % [facility] 10-09-2021 20:00-0400 Systolic blood pressure 110 mm[Hg] [facility] 10-09-2021 14:19-0400 Body height 157.48 cm [facility] 10-09-2021 14:19-0400 Body weight 56.69 kg [facility] 10-04-2021 19:00-0400 Diastolic blood pressure 66 mm[Hg] [facility] 10-04-2021 19:00-0400 Heart rate 72 /min [facility] 10-04-2021 19:00-0400 Respiratory rate 16 /min [facility] 10-04-2021 19:00-0400 SaO2% (BldA) [Mass fraction] 96 % [facility] 10-04-2021 19:00-0400 Systolic blood pressure 110 mm[Hg] [facility] 10-04-2021 15:16-0400 Body temperature 97.9 [degF] [facility] 10-04-2021 15:15-0400 Body height 157.48 cm [facility] 10-04-2021 15:15-0400 Body weight 54.5 kg [facility] 09-25-2021 19:58-0400 Heart rate 82 /min [facility] 09-25-2021 18:04-0400 Body temperature 98.1 [degF] [facility] 09-25-2021 18:00-0400 Body height 157.48 cm [facility] 09-25-2021 18:00-0400 Body weight 55.5 kg [facility] 09-25-2021 18:00-0400 Diastolic blood pressure 107 mm[Hg] [facility] 09-25-2021 18:00-0400 Respiratory rate 18 /min [facility] 09-25-2021 18:00-0400 SaO2% (BldA) [Mass fraction] 98 % [facility] 09-25-2021 18:00-0400 Systolic blood pressure 141 mm[Hg] [facility] 08-11-2021 18:12-0400 Heart rate 86 /min [facility] 08-11-2021 18:00-0400 Diastolic blood pressure 69 mm[Hg] [facility] 08-11-2021 18:00-0400 Respiratory rate 20 /min [facility] 08-11-2021 18:00-0400 SaO2% (BldA) [Mass fraction] 98 % [facility] 08-11-2021 18:00-0400 Systolic blood pressure 114 mm[Hg] [facility] 08-11-2021 16:06-0400 Body height 170.18 cm [facility] 08-11-2021 16:06-0400 Body mass index (BMI) [Ratio] 19.6 kg/m2 [facility] 08-11-2021 16:06-0400 Body temperature 97.9 [degF] [facility] 08-11-2021 16:06-0400 Body weight 57 kg [facility] 03-19-2021 14:30-0500 Body height 157.48 cm Marya Ginty Other [employer] Other 03-19-2021 14:30-0500 Body mass index (BMI) [Ratio] 24.69 kg/m2 Marya Ginty Other [employer] Other 03-19-2021 14:30-0500 Body temperature 96 [degF] Marya Ginty Other [employer] Other 03-19-2021 14:30-0500 Body weight 61.24 kg Amrya Ginty Other [employer] Other 03-19-2021 14:30-0500 Respiratory rate 63 /min Marya Ginty Other [employer] Other 03-19-2021 14:30-0500 SaO2% (BldA) [Mass fraction] 97 % Marya Ginty Other [employer] Other 03-26-2020 21:05-0500 Pulse Oximetry 100 % [facility] [place] 03-26-2020 21:01-0500 BP Diastolic 68 mm[Hg] [place] 03-26-2020 21:01-0500 BP Systolic 152 mm[Hg] [facility] [place] 03-26-2020 17:32-0500 BMI (Body Mass Index) 22.86 kg/m2 [place], [place] 03-26-2020 17:32-0500 Body weight 56.7 kg [place] 03-26-2020 17:32-0500 Height 157.5 cm [place] 03-26-2020 17:32-0500 Pulse (Heart Rate) 90 /min [facility] [place] 03-26-2020 17:32-0500 Respiratory Rate 18 /min [facility] [place] 03-26-2020 12:39-0500 Body Temperature 98.71 [degF] [facility] [place] 08-25-2019 08:30-0400 Body Temperature 98.01 [degF] Rajeev [facility] 08-25-2019 08:30-0400 BP Diastolic 75 mm[Hg] Rajeev [facility] [place] 08-25-2019 08:30-0400 BP Systolic 117 mm[Hg] Rajeev Sakshi [facility] [place] 08-25-2019 08:30-0400 Pulse (Heart Rate) 84 /min Rajeev Cantor [facility] 08-25-2019 08:30-0400 Pulse Oximetry 97 % Rajeev Cantor [facility] [place] 08-25-2019 08:30-0400 Respiratory Rate 16 /min [facility] 08-25-2019 05:30-0400 BMI (Body Mass Index) 25.88 kg/m2 Rajeev [facility] 08-25-2019 05:30-0400 Body weight 64.18 kg Rajeev [facility] [place] 08-22-2019 16:00-0400 Height 157.5 cm Rajeev [place] 03-04-2018 13:09-0500 BP Diastolic 69 mm[Hg] [...] Hospitals 08-24-2017 20:58-0400 BP Diastolic 64 mm[Hg] [facility] 08-24-2017 20:58-0400 BP Systolic 126 mm[Hg] [facility] 08-24-2017 20:58-0400 Pulse (Heart Rate) 67 /min [facility] 08-24-2017 20:58-0400 Pulse Oximetry 98 % [facility] 08-24-2017 20:58-0400 Respiratory Rate 18 /min [facility] 08-24-2017 13:41-0400 BMI (Body Mass Index) 21.58 kg/m2 Errol Walton [facility] 08-24-2017 13:41-0400 Body Temperature 98.29 [degF] Errol Walton [facility] 08-24-2017 13:41-0400 Height 157.[address] [facility] 08-24-2017 13:41-0400 Weight 53.[address] [facility] 06-09-2017 09:32-0400 BP Diastolic 73 mm[Hg] [facility] 06-09-2017 09:32-0400 BP Systolic 106 mm[Hg] [facility] 06-09-2017 09:32-0400 Pulse (Heart Rate) 86 /min [facility] 06-09-2017 09:32-0400 Pulse Oximetry 99 % [facility] 06-09-2017 09:32-0400 Respiratory Rate 16 /min [facility] 06-09-2017 07:20-0400 BMI (Body Mass Index) 21.87 kg/m2 [facility] 06-09-2017 07:20-0400 Body Temperature 98.4 [degF] [facility] 06-09-2017 07:20-0400 Height 157.5 cm [facility] 06-09-2017 07:20-0400 Weight 54.23 kg [facility] 05-15-2017 08:11-0500 Body Temperature 98.01 [degF] [facility] 05-15-2017 08:11-0500 BP Diastolic 69 mm[Hg] [facility] 05-15-2017 08:11-0500 BP Systolic 116 mm[Hg] [facility] 05-15-2017 08:11-0500 Pulse (Heart Rate) 76 /min [facility] 05-15-2017 08:11-0500 Pulse Oximetry 95 % [facility] 05-15-2017 08:11-0500 Respiratory Rate 15 /min [facility] 05-14-2017 12:58-0500 BMI (Body Mass Index) 21.95 kg/m2 David Paige [facility] 05-14-2017 12:58-0500 Height 157.[address] [facility] 05-14-2017 12:58-0500 Weight 54.43 kg [facility] Encounters Encounter Date Encounter Type Care Provider Facility Start: 07-20-2024 End: 07-21-2024 Emergency department patient visit [facility] Start: 06-27-2024 End: 06-27-2024 Emergency department patient visit [facility] Start: 06-15-2024 End: 06-15-2024 Emergency department patient visit [facility] Start: 05-31-2024 End: 05-31-2024 Emergency department patient visit [facility] Start: 04-07-2024 End: 04-07-2024 Emergency department patient visit Peter Escalera MD Work Phone: [facility] Comment on above: Acute pancreatitis w ithout infection or necrosis, unspecified pancreatitis type (Primary Dx); Acute recurrent pancreatitis Start: 03-18-2024 End: 03-18-2024 Emergency department patient visit [facility] Start: 01-19-2024 ambulatory SABRINA DEE [facility] Start: 01-19-2024 End: 01-19-2024 Subsequent hospital visit by physician Sabrina Dee MD, MPH Work Phone: [facility] Start: 01-14-2024 End: 01-14-2024 Emergency department patient visit [facility] Start: 01-07-2024 End: 01-07-2024 Emergency department patient visit [facility] ED Comment on above: Acute on chronic see creatitis (HCC) (Primary Dx); Abdominal pain, epigastric Start: 12-29-2023 End: 12-29-2023 Emergency department patient visit [facility] Start: 09-29-2023 End: 09-29-2023 Emergency department patient visit [facility] ED Comment on above: Hypokalemia (Primary Dx); Acute recurrent pancreatitis Start: 09-08-2023 End: 09-08-2023 Subsequent hospital visit by physician Sabrina Dee MD, MPH Work Phone: [facility] Start: 09-08-2023 ambulatory SABRINA Ferreira cili:[facility] Start: 05-22-2023 Telephone encounter [facility] Start: 05-11-2023 Chart abstracting Scanning [facility] Start: 05-11-2023 End: 05-11-2023 Office outpatient visit 40 minutes Sabrina Dee MD, MPH Work Phone: [facility] [place] Comment on above: 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 (Primary Dx); Encounter for screening for malignant neoplasm of colon; Other osteoporosis without current pathological fracture; Epigastric pain; Smoking; Gastroesophageal reflux disease without esophagitis Start: 05-11-2023 ambulatory ASBRINA Ferreira [facility] Start: 04-18-2023 End: 04-18-2023 Emergency department patient visit [facility] Work Phone: Start: 04-16-2023 Telephone encounter [facility] Start: 04-11-2023 End: 04-12-2023 Emergency department patient visit [facility] Work Phone: Start: 04-02-2023 End: 04-02-2023 Emergency department patient visit [facility] Work Phone: Start: 11-09-2022 End: 11-09-2022 Emergency department patient visit [facility] Work Phone: Start: 08-12-2022 End: 08-12-2022 Subsequent hospital visit by physician Sabrina Dee MD, MPH Work Phone: [facility] Start: 06-16-2022 End: 06-16-2022 Office outpatient visit 40 minutes Sabrina Dee MD, MPH Work Phone: [facility] [place] Comment on above: Osteoporosis without current pathological fracture, unspecified osteoporosis type (Primary Dx); Alcohol-induced chronic pancreatitis Start: 06-13-2022 End: 06-13-2022 ambulatory ARIC ARCINIEGA . Facility:[facility] Start: 03-29-2022 End: 03-29-2022 ambulatory ELENITA RIA . Facility:[facility] Start: 03-22-2022 End: 03-22-2022 Emergency department patient visit [facility] Work Phone: Start: 03-19-2022 End: 03-19-2022 ambulatory MONIK PARKINSON . Facility:[facility] Start: 01-28-2022 End: 01-28-2022 Subsequent hospital visit by physician Sabrina Dee MD, MPH Work Phone: [facility] Start: 01-27-2022 End: 01-27-2022 Subsequent hospital visit by physician Sabrina Dee MD, MPH Work Phone: [facility] [place] Comment on above: Arrived Start: 01-15-2022 End: 01-15-[address] HELLEN KITCHEN . Facility:[facility] Start: 12-16-2021 End: 12-16-2021 Office outpatient visit 25 minutes Sabrina Dee MD, MPH Work Phone: [facility] [place] Comment on above: Recurrent acute panc reatitis (Primary Dx); History of smoking 25-50 pack years; Alcohol-induced chronic pancreatitis; Epigastric pain; Encounter for screening colonoscopy Start: 12-13-2021 End: 12-14-2021 ambulatory NICK COY Facility:[facility] Start: 12-05-2021 End: 12-05-[address] RAJEEV KELLOGG Facility:[facility] Start: 10-11-2021 End: 10-12-[address] RAJEEV KELLOGG Facility:[facility] Start: 10-04-2021 End: 10-04-2021 Emergency department patient visit [facility] Start: 09-30-2021 End: 09-30-2021 ambulatory NAT MAXWELL . Facility:[facility] Start: 09-25-2021 End: 09-25-2021 Emergency department patient visit [facility] Start: 09-17-2021 End: 09-17-[address] RAJEEV KELLOGG Facility:[facility] Start: 08-26-2021 End: 08-26-2021 ambulatory NICK ANNELIESE Facility:[facility] Start: 08-22-2021 End: 08-22-[address] TRI HANSON Facility:[facility] Start: 08-13-2021 End: 08-13-2021 ambulatory AGUSTIN MADRIGAL Facility:[facility] Start: 08-11-2021 End: 08-11-2021 Emergency department patient visit [facility] Start: 07-31-2021 End: 07-31-2021 ambulatory YANNI FERNANDEZRAMIREZ Facility:[facility] Start: 07-19-2021 End: 07-19-2021 ambulatory LYNNE PERDOMO Facility:[facility] Start: 03-19-2021 End: 03-19-2021 ambulatory Marya Almonte Other [employer] Other Start: 03-19-2021 Office outpatient visit 15 minutes Marya Almonte [facility] Start: 05-22-2020 End: 05-22-2020 Orders Only Izabela Grant Work Phone: [facility] Start: 03-26-2020 End: 03-26-2020 Emergency department patient visit [facility] ED Comment on above: Acute biliary pancre atitis, unspecified complication status (Primary Dx) Start: 08-22-2019 End: 08-25-2019 Evaluation and management of inpatient Rajeev Cantor Work Phone[facility] Comment on above: Acute pancreatitis, unspecified complication status, unspecified pancreatitis type (Primary Dx); Pain of upper abdomen Start: 03-08-2018 End: 03-09-2018 Evaluation and management of inpatient [facility] Start: 03-04-2018 End: 03-04-2018 Patient encounter procedure [facility] Start: 03-04-2018 End: 03-04-2018 Emergency department patient visit Heather Linsey Work Phone: [facility] Emergency Department Comment on above: Acute on chronic see creatitis (HCC) (Primary Dx) Start: 08-24-2017 End: 08-24-2017 Emergency department patient visit [facility] Start: 08-24-2017 End: 08-24-2017 Emergency department patient visit Errol Walton Work Phone: [facility] Emergency Department Start: 06-09-2017 End: 06-09-2017 Emergency department patient visit [facility] Start: 06-09-2017 End: 06-09-2017 Emergency department patient visit Joana Mendes Work Phone: [facility] Emergency Department Start: 05-14-2017 End: 05-15-2017 Patient encounter procedure [facility] Start: 05-14-2017 End: 05-15-2017 Emergency department patient visit David Gibson Work Phone: [facility] Medical Observation Procedures Date Procedure [...] Start: 09-29-2023 Urinalysis microscop ic only Kerrie Y Kincaid PA-C Work Phone: Start: 09-29-2023 Urnls [...] and pelvis with contrast Start: 08-12-2022 UPPER GALE Dee MD, MPH Work Phone: Start: 01-28-2022 [...] 03-04-2018 End: 03-04-2018 LIGHT BLUE TOP Heather Linsey Work Phone: Start: 03-04-2018 End: 03-04-2018 LIGHT GREEN TOP Heather Linsey Work Phone: Start: 03-04-2018 End: 03-04-2018 Lipase [Enzymatic activity/volume] in Serum or Plasma Konstantin Connolly Work Phone: Start: 03-04-2018 End: 03-04-2018 PINK TOP Heather Linsey Work Phone: Start: 03-04-2018 End: 03-04-2018 RAINBOW DRAW Heather Linsey Work Phone: Start: 09-25-2017 Lipid 1996 panel [...] Visit [facility] [address] [place] [address] Sabrina Dee MD, MPH [address] [place] [address] [facility] G[facility] [place] Start: 11-08-2023 COVID-19 Vaccine ( season) COVID-19 Vaccine ( season) [facility] Start: 11-08-2023 COVID-19 Vaccine ( season) COVID-19 Vaccine ( season) [facility] Start: 11-08-2023 COVID-19 VACCINE () COVID-19 VACCINE () [facility] Start: 11-08-2023 Influenza vaccination INFLUENZA VACCINE (#1) [facility] Start: 10-08-2023 Influenza vaccination Flu vaccine (#1) [facility] Start: 05-25-2023 End: 05-25-2023 Patient encounter procedure 05/25/2023 1:00 PM EDT Office Visit [facility] [address] [facility] [address] [place] [address] Orlando Al MD [address] [place] [address] [facility] Start: 05-19-2023 End: 05-10-2024 UPPER EUS UPPER EUS GI/Bronch Routine Alcohol-induced chronic pancreatitis Expected: 05/19/2023, Expires: 05/10/2024 [facility] Comment on above: Expected: 05/19/2023, Expires: Start: 05-11-2023 End: 05-10-2024 VITAMIN D (25-HYDROXY,TOTAL) VITAMIN D (25-HYDROXY,TOTAL) Lab Routine Other osteoporosis without current pathological fracture Expected: 05/11/2023, Expires: 05/10/2024 [facility] Comment on above: Expected: 05/11/2023, Expires: 5 Start: 04-11-2023 Computed tomography of abdomen and pelvis with contrast CT abdomen pelvis w con [facility] Start: 04-11-2023 CT Abdomen and Pelvis W contrast IV [facility] Start: 03-16-2023 End: 03-16-2023 Patient encounter procedure 03/16/2023 Office Visit Gastroenterology Sabrina Dee MD, MPH [address] [place] [id number] [facility] Gastro[facility] [place] Start: 11-07-2022 COVID-19 VACCINE ( season) COVID-19 VACCINE () [facility] Start: 11-07-2022 Influenza vaccination [facility] Start: 09-25-2022 Lipid panel LIPID SCREENING [facility] Start: 07-29-2022 End: 06-17-2023 UPPER EUS UPPER EUS GI/Bronch Routine Alcohol-induced chronic pancreatitis Expected: 07/29/2022, Expires: 06/17/2023 [facility] Comment on above: Expected: 07/29/2022, Expires: 4 Start: 07-28-2022 End: 01-28-2023 Screening colonoscopy SCREENING COLONOSCOPY GI/Bronch Routine Encounter for screening colonoscopy Expected: 07/28/2022, Expires: 01/28/2023 [facility] Comment on above: Expected: 07/28/2022, Expires: 3 Start: 07-28-2022 End: 07-28-2022 Patient encounter procedure 07/28/2022 Appointment Endoscopy Julia Tyler MD [address] [phone] [facility] Start: 06-16-2022 End: 12-16-2022 Screening colonoscopy SCREENING COLONOSCOPY GI/Bronch Routine Encounter for screening colonoscopy Expected: 06/16/2022, Expires: 12/16/2022 [facility] Comment on above: Expected: 06/16/2022, Expires: 3 Start: 06-16-2022 End: 06-16-2022 Patient encounter procedure 06/16/2022 Office Visit Gastroenterology Sabrina Dee MD, MPH [address] [place] [phone] General [facility] Gastrointestinal Surgery [facility] [place] Start: 03-22-2022 Bacteria identified in Urine by Culture [facility] Start: 01-28-2022 End: 01-28-2022 Patient encounter procedure 01/28/2022 Appointment Endoscopy Sabrina Dee MD, MPH [address] [place] [address] [facility] Start: 01-28-2022 Subsequent hospital visit by physician 01/28/2022 Hospital Encounter Endoscopy Sabrina Dee MD, MPH [address] [place] [phone] Arrived [facility] Comment on above: Arrived Start: 01-14-2022 End: 12-16-2022 UPPER EUS UPPER EUS GI/Bronch Routine Recurrent acute pancreatitis Expected: 01/14/2022, Expires: 12/16/2022 [facility] Comment on above: Expected: 01/14/2022, Expires: 3 Start: 12-16-2021 End: 12-16-2022 Bone density scan BONE DENSITY AXIAL (HIP, PELVIS, SPINE) Imaging Routine Recurrent acute pancreatitis History of smoking 25-50 pack years Expected: 12/16/2021, Expires: 12/16/2022 [facility] Comment on above: Expected: 12/16/2021, Expires: 3 Start: 11-07-2021 Influenza vaccination INFLUENZA VACCINE (#1) [facility] Start: 10-09-2021 CT of abdomen and pelvis without contrast CT abdomen pelvis wo [facility] Start: 10-09-2021 End: 10-09-2021 Emergency department patient visit Departed Emergency [facility] Start: 11-13-2020 COVID-19 VACCINE (3 - Booster for Pfizer series) COVID-19 VACCINE (3 - Booster for Pfizer series) [facility] Start: 11-08-2019 Influenza vaccination [place], [place] Start: 11-08-2019 Influenza vaccination given Sequential Influenza Vaccine (#1) [facility] Start: 06-21-2019 Administration of herpes zoster vaccine Zoster Vaccines (1 of 2) [facility] Start: 06-21-2019 Administration of varicella zoster vaccine Zoster (Shingles) Vaccine (1 of 2) [facility] [employer] [facility] Start: 06-21-2019 Screening for malignant neoplasm of breast Breast cancer screen [place], [place] Start: 06-21-2019 Screening for malignant neoplasm of colon [place], [place] Start: 06-21-2019 Screening for malignant neoplasm of lung LUNG CANCER SCREENING [facility] Start: 06-21-2019 Shingles Vaccine (1 of 2) Shingles Vaccine (1 of 2) [facility] Start: 06-21-2019 Zoster vaccine hzv live for subcutaneous use ZOSTER (SHINGLES) VACCINE (1 of 2) [facility] Start: 11-07-[address] [facility] Start: 11-07-2016 Influenza vaccination SEQUENTIAL INFLUENZA VACCINE (#1) [facility] Start: 12-10-2014 Screening for malignant neoplasm of cervix PAP SMEAR [facility] Start: 2014 Screening for malignant neoplasm of colon [facility] Start: 01-01-2014 Screening for malignant neoplasm of breast Breast cancer screen [facility] Start: 01-01-2013 Screening for malignant neoplasm of breast MAMMOGRAM SCREENING DISCUSSION [facility] Start: 01-01-[address] [facility] Start: 2009 [address]id [address] [facility] Start: 1990 Screening for malignant neoplasm of cervix [facility] Start: 1988 DTaP,Tdap and Td Vaccines (1 - Tdap) DTaP,Tdap and Td Vaccines (1 - Tdap) [facility] Start: 1988 DTaP/Tdap/Td vaccine (1 - Tdap) DTaP/Tdap/Td vaccine (1 - Tdap) [facility] Start: 1988 Hepatitis B vaccination HEP B VACCINE (1 of 3 - 19+ 3-dose series) [facility] Start: 1988 Hepatitis B vaccine (1 of 3 - 19+ 3-dose series) Hepatitis B vaccine (1 of 3 - 19+ 3-dose series) [facility] Start: 1988 Third diphtheria, tetanus and acellular pertussis (DTaP) vaccination TDAP (ADULT) [facility] Start: 06-21-1987 Hepatitis C antibody, confirmatory test Hepatitis C Screening [facility] Start: 06-21-1987 Hepatitis C screening Hepatitis C screen [facility] Start: 06-21-1987 Tetanus vaccination TETANUS [facility] Start: 1985 COVID-19 Vaccine (1 of 2) COVID-19 Vaccine (1 of 2) [facility] Start: 1984 HIV screening [facility] Start: 1981 Depression Screen Depression Screen [facility] Start: 1981 Depression Screening Depression Screening [facility] Start: 06-21-1975 Pneumococcal 0-64 years Vaccine (1 of 1 - PPSV23) Pneumococcal 0-64 years Vaccine (1 of 1 - PPSV23) [place] Start: 06-21-1975 Pneumococcal 0-64 years Vaccine (1 of 2 - PCV) Pneumococcal 0-64 years Vaccine (1 of 2 - PCV) [facility] Start: 06-21-1975 PNEUMOCOCCAL VACCINE SERIES (1 - PCV) PNEUMOCOCCAL VACCINE SERIES (1 - PCV) [facility] Start: 06-21-1975 PNEUMOCOCCAL VACCINE SERIES (1 of 2 - PCV) PNEUMOCOCCAL VACCINE SERIES (1 of 2 - PCV) [facility] Start: 1972 History and physical examination, annual for health maintenance Wellness Visit [facility] Start: 1969 COVID-19 Vaccine (#1) COVID-19 Vaccine (#1) [facility] Start: 1969 Hepatitis B vaccination HEP B VACCINE (1 of 3 - 3-dose series) [facility] Start: 1969 Hepatitis B vaccine (1 of 3 - 3-dose series) Hepatitis B vaccine (1 of 3 - 3-dose series) [facility] Start: 1969 Hepatitis C screening [facility] Start: 1969 Tetanus vaccination [facility] Start: 1969 Tobacco Counseling Tobacco Counseling [facility] CBC auto differential CBC auto d ifferential Lab Routine Daily until discontinued starting 08/23/2019, 3 completed [facility] Comment on above: Daily until discontinued starting 2019, [address] ABDOMEN PELVIS W IV CONTRAST Additional Contrast? None CT ABDOMEN PELVIS W IV CONTRAST Additional Contrast? None Imaging STAT 03/26/2020 3:01 PM EST [facility] EKG 12 Lead EKG 12 Lead ECG Routine 01/07/2024 2:42 PM EDT [email or web address]: IgG Subclasses IgG Subclasses A dd-On 05/14/2017 2:06 PM [facility] Initiate Oxygen Therapy Protocol Initiate Oxygen Therapy Protocol Respiratory Care Routine Daily until discontinued starting 08/22/2019 [facility] Comment on above: Daily until discontinued starting 2019 Lipase Lipase Lab Routi ne Daily until discontinued starting 08/23/2019, 3 completed [facility] Comment on above: Daily until discontinued starting 2019, 3 completed Patient Education [facility] Work Phone: Patient referral [facility] Work Phone: End: 08-22-2019 Pulse Oximetry Spot Check Pulse Oximetry Spot Check Respiratory Care Routine One Time for 1 Occurrences starting 08/22/2019 until 08/22/2019 [facility] Comment on above: One Time for 1 Occurrences starting 08/07 until 08/22/2019 Screening colonoscopy SCREENING COLONOSCOPY GI/Bronch Routine Encounter for screening colonoscopy 01/28/2022 9:43 AM EST [facility] Screening colonoscopy SCREENING COLONOSCOPY GI/Bronch Routine Encounter for screening for malignant neoplasm of colon Ordered: 05/11/2023 [facility] Comment on above: Ordered: 05/11/2023 End: 04-07-2024 SPECIMEN REJECTION Efra lew Comment on above: Once for 1 Occurrences starting 04/07/19 25 until 04/07/2024 Immunizations Immunization Date Immunization Notes Care Provider Jhon jones 12-23-2015 influenza, injectabl e, quadrivalent, contains preservative Sabrina Dee MD, MPH Work Phone: [facility] 12-23-2015 influenza virus vaccine, unspecified formulation Sabrina Dee MD, MPH Work Phone: [facility] 12-15-2014 influenza virus vaccine, unspecified formulation Sabrina Dee MD, MPH Work Phone: [facility] Payers Date Payer Category Payer Private Health Insurance [id number] 2022 Self-pay [id number] 2022 Medicaid [employer] [facility] O [id number] 2022-Present [phone] [address] [place] [address] [id number] 2019 Unknown [facility] xxxxxxxxxxx 2019-Present [phone] CLAIMS DEPARTMENT [address] [place] [address] xxxxxxxxxxx [id number] 2017 Unknown [id number] 2017 Unknown 1969 Unknown [id number] 2.16.840.1.803832.3.579.2. 900 1969 Unknown [id number] 2.16.840.1.616872.3.579.2. 900 1969 Unknown [id number] 2.16.840.1.912534.3.579.2. 900 1969 Unknown [id number] 2.16.840.1.815213.3.579.2. 900 1969 Unknown [id number] 2.16.840.1.953882.3.579.2. 900 1969 Unknown [id number] 2.16.840.1.319231.3.579.2. 593 1969 Unknown [id number] 2.16.840.1.618164.3.579.2. 593 1969 Unknown [id number] 2.16.840.1.630745.3.579.2. 593 1969 Unknown [id number] 2.16.840.1.813670.3.579.2. 593 1969 Unknown [id number] 2.16.840.1.977812.3.579.2. 593 1969 Unknown [id number] 2.16.840.1.486591.3.579.2. 593 1969 Unknown [id number] 2.16.840.1.977031.3.579.2. 593 1969 Unknown [id number] 2.16.840.1.248169.3.579.2. 593 1969 Unknown [id number] 2.16.840.1.253296.3.579.2. 593 1969 Unknown [id number] 2.16.840.1.957723.3.579.2. 593 1969 Unknown [id number] 2.16.840.1.613163.3.579.2. 593 1969 Unknown [id number] 2.16.840.1.460413.3.579.2. 593 1969 Unknown [id number] 2.16.840.1.644382.3.579.2. 593 1969 Unknown [id number] 2.16.840.1.897794.3.579.2. 593 1969 Unknown [id number] 2.16.840.1.047375.3.579.2. 594 1969 Unknown [id number] 2.16.840.1.782311.3.579.2. 594 1969 Unknown [id number] 2.16.840.1.708232.3.579.2. 594 1969 Unknown [id number] 2.16.840.1.508292.3.579.2. 173 1969 Unknown [id number] 2.16.840.1.314129.3.579.2. 173 1969 Unknown [id number] 2.16.840.1.302734.3.579.2. 173 1969 Unknown [id number] 2.16.840.1.185742.3.579.2. 1286 1969 Unknown [id number] 2.16.840.1.174874.3.579.2. 1286 1969 Unknown [id number] 2.16.840.1.315186.3.579.2. 128 1969 Unknown [id number] 2.16.840.1.740135.3.579.2. 128 1969 Unknown [id number] 2.16.840.1.096732.3.579.2. 128 1969 Unknown [id number] 2.16.840.1.121036.3.579.2. 1285 1969 Unknown [id number] 2.16.840.1.043057.3.579.2. 1286 1959 Medicaid [id number] 1959 Unknown [id number] 1.2.840.604153.1.13.239.2. 7.3.867686.315 Unknown [id number] 2.16.840.1.817909.3.579.2. 531 Unknown [id number] 2.16.840.1.481602.3.579.2. 531 Unknown [id number] 2.16.840.1.519885.3.579.2. 531 Unknown [id number] 2.16.840.1.937386.3.579.2. 531 Social History Date Type Detail Facility Start: 06-09-2017 End: 05-11-2023 Tobacco smoking status NHIS Current every day smoker [facility] End: 10-30-2020 History of tobacco use Cigarette Smoker [facility] Start: 06-09-2017 End: 04-19-2020 Cigarettes smoked current (pack per day) - Reported [facility] Start: 1970 Sex Assigned At Not on file [facility] Start: 08-22-2019 End: 04-07-2024 Alcohol intake Current non-drinker of alcohol (finding) [facility] Exposure to SARS-CoV -2 (event) Unable to assess [facility] Start: 03-08-2018 End: 05-11-2023 Tobacco use and exposure Never used [facility] Start: 07-24-2014 Tobacco Comment Smokes < 1/2 p pd, smoker for 30+ years [facility] Start: 07-24-2014 Alcohol Comment Prior heavy dr carrillo, quit [address] [facility] Start: 04-19-2020 End: 08-12-2022 Sex Assigned At [email or web address] Other Start: 09-25-2021 End: 04-18-2023 Tobacco smoking status NHIS Smoker (finding) [facility] Start: 1970 Sex Assigned At Female [facility] Start: 05-09-2016 Alcohol Comment been sober for 9 yea rs [facility] Start: 04-02-2023 Tobacco smoking stat us LAIS Current some day smoker [facility] Gender identity Identifies as fe male gender (finding) [facility] How often to you hav e a drink containing alcohol? Never [facility] How many standard drinks containing alcohol do you have on a typical day? [facility] not drink [facility] Start: 06-25-2022 Tobacco smoking stat us NHIS Ex-smoker [facility] Start: 04-11-2023 End: 05-11-2023 Alcohol intake Ex-drinker (finding) [facility] Start: 06-25-2022 Alcohol Comment Has not consum ed alcohol in 12 years [facility] Clinical Notes 10-08-2019 to 05-31-2024 Discharge InstructionsAttachJerzy [...] London Hurd DO on 05/31/2024 3:21 PM [facility] 04-07-2024 Hospital Discharg e instructions Peter Escalera MD - 04/07/2024 6:10 PM EST Please start a clear liquid diet today and tomorrow, advance as tolerated, avoid alcohol. Follow-up with your GI doctor tomorrow for further recommendations. The following attachments cannot be sent through Care Everywhere.Pancreatitis (Martiniquais)Clear Liquid Diet: General Info (Martiniquais)documented in this encounter [facility] 01-19-2024 Nurse Surgical operation note [...] off unit via wheelchair w/ family assistance. [facility] 01-19-2024 Nurse Note Patient mets [...] w/ family assistance. documented in this encounter [facility] 01-19-2024 History and physical note ENDOSCOPIC PREPROCEDURE HISTORY AND PHYSICAL HISTORY OF PRESENT ILLNESS: Chioma Rainey is a 53 y.o. female [facility]. The indication for endoscopic evaluation [...] W/ ULTRASOUND N/A 04/23/2016 Laterality: N/A; Surgeon: iPneda Troy MD; Location: [facility] EGD W/ ULTRASOUND N/A 01/23/2016 Laterality: N/A; Surgeon: Pineda Troy MD; Location: [facility] CHANGE TUBE GASTROSTOMY N/A 08/20/2015 Laterality: N/A; Surgeon: Yanni Alonzo MD; Location: [facility] EGD DIAGNOSTIC N/A 06/25/2015 Laterality: N/A; Surgeon: Pineda Troy MD; Location: [facility] EGD W/ PLACEMENT OR REPLACEMENT PEG N/A 06/15/2015 Laterality: N/A; Surgeon: Curry Newell MD; [facility] EGD W/ INSERTION TUBE OR CATHETER N/A 06/13/2015 Laterality: N/A; Surgeon: Jose Ty MD; [facility] EGD W/ ULTRASOUND N/A 02/14/2015 Laterality: N/A; Surgeon: Pineda Troy MD; [facility] CHOLECYSTECTOMY CHOLECYSTECTOMY, LAPAROSCOPIC HYSTERECTOMY MEDICATIONS: Current Outpatient Medications Medication Instructions Ergocalciferol (VITAMIN D2) 50,000 Units, Oral, WEEKLY Pancreatic enzymes (Creon) [id number] units Cap DR Particles capsule 72,000 Units, Oral, 2 TIMES DAILY WITH MEALS Current Outpatient Medications: Ergocalciferol 1.25 MG (41209 UT) capsule, Take 1 capsule by mouth once a week., Disp: 8 capsule, Rfl: 0 Pancreatic enzymes (Creon) [id number] units Cap DR Particles capsule, Take 3 [...] using Monitored Anesthesia Care. Daniel Christiansen MD [facility] Work Phone: 01-19-2024 History and physical note ENDOSCOPIC PREPROCEDURE HISTORY AND PHYSICAL HISTORY OF PRESENT ILLNESS: Chioma Rainey is a 53 y.o. female seen in the pre-procedure area at [facility]. The indication for endoscopic evaluation includes: Alcohol-induced chronic pancreatitis PAST MEDICAL HISTORY: Past Medical History: Diagnosis Date Anemia Depression H. pylori infection Neutrophilic leukocytosis Pancreatitis SURGICAL HISTORY: Past Surgical History: Procedure Laterality Date EGD W/ ULTRASOUND 09/08/2023 for nerve block EGD W/ ULTRASOUND N/A 12/01/2019 Laterality: N/A; Surgeon: Sabrina Dee MD, MPH; Location: [facility] EGD W/ ULTRASOUND N/A 04/23/2016 Laterality: N/A; Surgeon: Pineda Troy MD; Location: [facility] EGD W/ ULTRASOUND N/A 01/23/2016 Laterality: [...] 50,000 Units, Oral, WEEKLY Pancreatic enzymes (Creon) [id number] units Cap DR Particles capsule 72,000 Units, Oral, 2 TIMES DAILY WITH MEALS Current Outpatient Medications: Ergocalciferol 1.25 MG (97349 UT) capsule, Take 1 capsule by mouth once a week., Disp: 8 capsule, Rfl: 0 Pancreatic enzymes (Creon) [id number] units Cap DR Particles capsule, Take 3 [...] Daniel Christiansen MD documented in this encounter [facility] 01-07-2024 Hospital Discharg e instructions Marina Phipps APRN - CNP - 01/07/2024 5:08 PM EDT Increase fluids. [place] diet Continue home medication The following attachments cannot be sent through Care Everywhere.Abdominal Pain (Martiniquais)Pancreatitis (Martiniquais)Pancreatitis: Chronic Diet (Martiniquais)documented in this encounter [facility] 09-08-2023 History and physical note ENDOSCOPIC PREPROCEDURE HISTORY AND PHYSICAL HISTORY OF PRESENT ILLNESS: Chioma Rainey is a 53 y.o. female seen in the pre-procedure area at [facility]. The indication for endoscopic evaluation includes: Alcohol-induced chronic pancreatitis PAST MEDICAL HISTORY: Past Medical History: Diagnosis Date Anemia Depression H. pylori infection Neutrophilic leukocytosis Pancreatitis SURGICAL HISTORY: Past Surgical History: Procedure Laterality Date EGD W/ ULTRASOUND N/A 12/01/2019 Laterality: N/A; Surgeon: Sabrina Dee MD, MPH; Location: [facility] EGD W/ ULTRASOUND N/A 04/23/2016 Laterality: N/A; Surgeon: Pineda Troy MD; Location: [facility] EGD W/ ULTRASOUND N/A 01/23/2016 Laterality: N/A; Surgeon: Pineda Troy MD; Location: [facility] CHANGE TUBE GASTROSTOMY N/A 08/20/2015 Laterality: N/A; Surgeon: Yanni Alonzo MD; Location: [facility] EGD DIAGNOSTIC N/A 06/25/2015 Laterality: N/A; Surgeon: Pineda Troy MD; Location: [facility] EGD W/ PLACEMENT OR REPLACEMENT PEG N/A 06/15/2015 Laterality: N/A; Surgeon: Curry Newell MD; Location: [facility] EGD W/ INSERTION TUBE OR CATHETER N/A 06/13/2015 Laterality: N/A; Surgeon: Jose Ty MD; Location: [facility] EGD W/ ULTRASOUND N/A 02/14/2015 Laterality: N/A; Surgeon: Pineda Troy MD; Location: [facility] CHOLECYSTECTOMY CHOLECYSTECTOMY, LAPAROSCOPIC HYSTERECTOMY MEDICATIONS: Current Outpatient Medications Medication Instructions Ergocalciferol (VITAMIN D2) 50,000 Units, Oral, WEEKLY Pancreatic enzymes (Creon) 93124-20044 units Cap DR Particles capsule 72,000 Units, Oral, 2 TIMES DAILY WITH MEALS Current Outpatient Medications: Ergocalciferol 1.25 MG (60567 UT) capsule, Take 1 capsule by mouth once a week., Disp: 8 capsule, Rfl: 0 Pancreatic enzymes (Creon) [id number] units [address] Particles capsule, Take 3 [...] Monitored Anesthesia Care. Sabrina Dee MD, MPH [facility] 09-08-2023 History and physical note [...] 50,000 Units, Oral, WEEKLY Pancreatic enzymes (Creon) [id number] units [address] Particles capsule 72,000 Units, Oral, 2 TIMES DAILY WITH MEALS Current Outpatient Medications: Ergocalciferol 1.25 MG (40590 UT) capsule, Take 1 capsule by mouth once a week., Disp: 8 capsule, Rfl: 0 Pancreatic enzymes (Creon) [id number] units [address] Particles capsule, Take 3 [...] Dee MD, MPH documented in this encounter [facility] 09-08-2023 Miscellaneous Notes RN and MD educated pt on DC instructions, pt verbalized understanding. IV removed per protocol. documented in this encounter [facility] 09-08-2023 Nurse Note JOSE LUIS and educated pt on DC instructions, pt verbalized understanding. IV removed per protocol. [facility] 05-22-2023 Miscellaneous Notes Called patient to remind them to bring their most current copy of their medication list with them to their appt. Patient verbalizes understanding. documented in this encounter [facility] 05-22-2023 Telephone encounter Note Called patient to remind them to bring their most current copy of their medication list with them to their appt. Patient verbalizes understanding. [facility] 05-11-2023 History of Presen t illness Narrative This Fire Alarm Operator verified the patients name and date [...] for pain management 5. Prior evaluation at [facility] for TPIAT and was not a candidate [...] (human immunodeficiency virus infection), Hyperlipidemia, Hyperthyroidism, Hypothyroidism, SD (myocardial infarction), Migraine, PEGGY (obstructive sleep apnea), [...] includes the following prescription(s): Pancreatic enzymes (Creon) 72780-[address] units [address] Particles capsule and Ergocalciferol 1.25 MG (59126 UT) capsule. Allergies: She is allergic to [...] Hepatology, and Nutrition documented in this encounter [facility] 05-11-2023 Instructions Sabrina Dee MD, [...] celiac plexus block documented in this encounter [facility] 04-16-2023 Miscellaneous Notes Pt called requesting to schedule a new patient appt. Referral is in media from Tamela Keenan DO. A good phone number to reach the pt: [phone] Referral in media was to [facility] so pt has no referral to nephrology. LM informing pt she would need to have her referring provider fax us over a referral and then I could schedule her a new pt appt. documented in this encounter [facility] 04-16-2023 Telephone encounter Note Pt called requesting to schedule a new patient appt. Referral is in media from Tamela Keenan DO. A good phone number to reach the pt: [phone] [facility] 04-16-2023 Telephone encounter Note Referral in media was to [facility] so pt has no referral to nephrology. LM informing pt she would need to have her referring provider fax us over a referral and then I could schedule her a new pt appt. [facility] 04-16-2023 Miscellaneous Notes LMOM for the patient to call and schedule their new pt appointment with [facility]. documented in this encounter [facility] 04-16-2023 Telephone encounter Note LMOM for the patient to call and schedule their new pt appointment with [facility]. [facility] 08-12-2022 History and physical note ENDOSCOPIC PREPROCEDURE HISTORY AND PHYSICAL HISTORY OF PRESENT ILLNESS: Chioma Rainey is a 52 y.o. female seen in the pre-procedure area at [facility]. The indication for endoscopic evaluation includes: [...] 20 mg, Oral, DAILY Pancreatic enzymes (Creon) 08584-[address] units [address] Particles capsule 48,000 Units, Oral, 3 TIMES DAILY WITH MEALS Current Outpatient Medications: omeprazole [address] capsule, Take 1 capsule by mouth daily., Disp: 30 capsule, Rfl: 6 amitriptyline 10 MG tablet, Take 2.5 tablets by mouth at bedtime., Disp: 30 tablet, Rfl: 11 ergocalciferol 1.25 MG (76849 UT) capsule, Take 1 capsule by mouth once a week for 8 doses., Disp: 8 capsule, Rfl: 0 Pancreatic enzymes (Creon) 86233-[address] Particles capsule, Take 2 [...] Monitored Anesthesia Care. Sabrina Dee MD, MPH [facility] 08-12-2022 History and physical note ENDOSCOPIC PREPROCEDURE HISTORY AND PHYSICAL HISTORY OF PRESENT ILLNESS: Chioma Rainey is a 52 y.o. female seen in the pre-procedure area at [facility]. The indication for endoscopic evaluation includes: [...] 20 mg, Oral, DAILY Pancreatic enzymes (Creon) 58237-[address] Particles capsule 48,000 Units, Oral, 3 TIMES DAILY WITH MEALS Current Outpatient Medications: omeprazole [address] capsule, Take 1 capsule by mouth daily., Disp: 30 capsule, Rfl: 6 amitriptyline 10 MG tablet, Take 2.5 tablets by mouth at bedtime., Disp: 30 tablet, Rfl: 11 ergocalciferol 1.25 MG (47323 UT) capsule, Take 1 capsule by mouth once a week for 8 doses., Disp: 8 capsule, Rfl: 0 Pancreatic enzymes (Creon) 44376-[address] units Cap [address] Particles capsule, Take 2 [...] Dee MD, MPH documented in this encounter [facility] 08-12-2022 Nurse Note PT Given discharge paperwork and reviewed per MD and nurse. Dietetic Intern available.Diet and restrictions reviewed as well. Venous access removed no complications noted. Ok to d/c Anesthesia and procedural . documented in this encounter [facility] 08-12-2022 Nurse Surgical operation note PT Given discharge paperwork and reviewed per MD and nurse. Dietetic Intern available.Diet and restrictions reviewed as well. Venous access removed no complications noted. Ok to d/c Anesthesia and procedural . [facility] 06-16-2022 History of Presen t illness Narrative This Fire Alarm Operator verified the patients name and date [...] for pain management 5. Prior evaluation at [facility] for TPIAT and was not a candidate 6. Last CT was at [facility] in 05/2019: No calcification in the pancreas. [...] (human immunodeficiency virus infection), Hyperlipidemia, Hyperthyroidism, Hypothyroidism, SD (myocardial infarction), Migraine, PEGGY (obstructive sleep apnea), [...] amitriptyline 10 MG tablet, ergocalciferol 1.25 MG (33172 UT) capsule, and Pancreatic enzymes (Creon) 09882-[address] Particles capsule. Allergies: She [...] Hepatology, and Nutrition documented in this encounter [facility] 06-16-2022 Instructions Sabrina Dee MD, MPH - 06/16/2022 11:00 AM EDT Schedule EUS celiac plexus block; EGD dilation Referral to endocrinology; appointment to be scheduled Return to clinic in Mar 2023 Smoking cessation Vitamin D 2000 units daily Calcium supplement 1 gram daily Omeprazole (Prilosec) 20mg daily, take at least 30 mins before dinner documented in this encounter [facility] 01-28-2022 Miscellaneous Notes Attending physician in room speaking with patient and family on results. Attending physician ok for discharge. Pt ambulated unassisted with steady gait and balance. IV removed and discharge instructions given with verbal ok by patient of understanding. Pt discharged via w/c with regional truck driver from unit. Dr dee aware patient ready for results Updated dr goins on patient pain and received new orders documented in this encounter [facility] 01-28-2022 Note Formatting of this n ote might be different from the original. Attending physician in room speaking with patient and family on results. Attending physician ok for discharge. Pt ambulated unassisted with steady gait and balance. IV removed and discharge instructions given with verbal ok by patient of understanding. Pt discharged via w/c with regional truck driver from unit. [facility] 01-28-2022 Note Formatting of this n ote might be different from the original. Dr dee aware patient ready for results [facility] 01-28-2022 Note Formatting of this n ote might be different from the original. Updated dr goins on patient pain and received new orders [facility] 01-28-2022 History and physical note ENDOSCOPIC PREPROCEDURE HISTORY AND PHYSICAL HISTORY OF PRESENT ILLNESS: Chioma Rainey is a 51 y.o. female seen in the preoprocedure area at [facility]. The indication for endoscopic evaluation includes: Recurrent acute pancreatitis PAST MEDICAL HISTORY: Past Medical History: Diagnosis Date Anemia Depression H. pylori infection Neutrophilic leukocytosis Pancreatitis SURGICAL HISTORY: Past Surgical History: Procedure Laterality Date EGD W/ ULTRASOUND N/A 12/01/2019 Laterality: N/A; Surgeon: Sabrina Dee MD, MPH; Location: [facility] EGD W/ ULTRASOUND N/A 04/23/2016 Laterality: N/A; Surgeon: Pineda Troy MD; Location: [facility] EGD W/ ULTRASOUND N/A 01/23/2016 Laterality: [...] 50,000 Units, Oral, WEEKLY Pancreatic enzymes (Creon) 03526-[address] Particles capsule 48,000 Units, Oral, 3 TIMES DAILY WITH MEALS Current Outpatient Medications: amitriptyline 10 MG tablet, Take 2.5 tablets by mouth at bedtime., Disp: 30 tablet, Rfl: 11 Pancreatic enzymes (Creon) [address]14-[address] Particles capsule, Take 2 capsules by mouth 3 times daily with meals., Disp: 180 capsule, Rfl: 0 ergocalciferol 1.25 MG (79203 UT) capsule, Take 1 capsule by mouth [...] Monitored Anesthesia Care. Sabrina Dee MD, MPH [facility] 01-28-2022 History and physical note ENDOSCOPIC PREPROCEDURE HISTORY AND PHYSICAL HISTORY OF PRESENT ILLNESS: Chioma Rainey is a 51 y.o. female seen in the preoprocedure area at [facility]. The indication for endoscopic evaluation includes: Recurrent acute pancreatitis PAST MEDICAL HISTORY: Past Medical History: Diagnosis Date Anemia Depression H. pylori infection Neutrophilic leukocytosis Pancreatitis SURGICAL HISTORY: Past Surgical History: Procedure Laterality Date EGD W/ ULTRASOUND N/A 12/01/2019 Laterality: N/A; Surgeon: Sabrina Dee MD, MPH; Location: [facility] EGD W/ ULTRASOUND N/A 04/23/2016 Laterality: N/A; Surgeon: Pineda Troy MD; Location: [facility] EGD W/ ULTRASOUND N/A 01/23/2016 Laterality: N/A; Surgeon: Pineda Troy MD; Location: [facility] CHANGE TUBE GASTROSTOMY N/A 08/20/2015 Laterality: N/A; Surgeon: Yanni Alonzo MD; [facility] EGD DIAGNOSTIC N/A 06/25/2015 Laterality: N/A; Surgeon: Pineda Troy MD; [facility] EGD W/ PLACEMENT OR REPLACEMENT PEG N/A 06/15/2015 Laterality: N/A; Surgeon: Curry Newell MD; [facility] EGD W/ INSERTION TUBE OR CATHETER N/A 06/13/2015 Laterality: N/A; Surgeon: Jose Ty MD; [facility] EGD W/ ULTRASOUND N/A 02/14/2015 Laterality: N/A; Surgeon: Pineda Troy MD; [facility] CHOLECYSTECTOMY CHOLECYSTECTOMY, LAPAROSCOPIC HYSTERECTOMY MEDICATIONS: Current Outpatient Medications Medication Instructions amitriptyline (ELAVIL) 25 mg, Oral, DAILY AT BEDTIME ergocalciferol (VITAMIN D2) 50,000 Units, Oral, WEEKLY Pancreatic enzymes (Creon) [address]43-[address] Particles capsule 48,000 Units, Oral, 3 TIMES DAILY WITH MEALS Current Outpatient Medications: amitriptyline 10 MG tablet, Take 2.5 tablets by mouth at bedtime., Disp: 30 tablet, Rfl: 11 Pancreatic enzymes (Creon) [address] Particles capsule, Take 2 capsules by mouth 3 times daily with meals., Disp: 180 capsule, Rfl: 0 ergocalciferol 1.25 MG (79396 UT) capsule, Take 1 capsule by mouth [...] MD, MPH documented in this encounter [facility] 12-16-2021 History of Presen t [...] for pain management 5. Prior evaluation at [facility] for TPIAT and was not a candidate 6. Last CT was at [facility] in 05/2019: No calcification in the pancreas. [...] (human immunodeficiency virus infection), Hyperlipidemia, Hyperthyroidism, Hypothyroidism, SD (myocardial infarction), Migraine, PEGGY (obstructive sleep apnea), [...] 10 MG tablet and Pancreatic enzymes (Creon) 61539-[address] Particles capsule. Allergies: She [...] in 6 months documented in this encounter [facility] 12-16-2021 Instructions Sabrina Dee MD, MPH - 12/16/2021 11:30 AM EDT Schedule DEXA scan Schedule colonoscopy Schedule EUS Start vitamin D 1,000 units daily. Start calcium supplements 1g daily RTC in 6 months documented in this encounter [facility] 03-19-2021 Evaluation note Encounter Date [...] writting by [facility] Care At Home document [employer] Other 08-01-2020 History general Narrative - Reported* Type Description Date Medical History chronic pancreatitis Medical History chronic pain Medical History former alcoholic Surgical History [facility]d- [facility]2019 Surgical History GALLBLADDER Surgical History COLON-[facility] Hospitalization History see above [employer] Other Evaluation noteNo assessment information available [facility] Work Phone: evaluation note* Diagnosis Recurrent acute pancreatitis- Primary Acute pancreatitis History of smoking 25-50 pack years Alcohol-induced chronic pancreatitis Chronic pancreatitis Epigastric pain Abdominal pain, epigastric Encounter for screening colonoscopy Special screening for malignant neoplasms, colon [facility] Recurrent acute pancreatitis Acute pancreatitis History of smoking 25-50 pack years Encounter for screening colonoscopy Special screening for malignant neoplasms, colon [facility] Other osteoporosis without current pathological fracture- Primary Recurrent acute pancreatitis Acute pancreatitis Encounter for screening colonoscopy Special screening for malignant neoplasms, colon [facility] Encounter for screening colonoscopy Special screening for malignant neoplasms, colon [facility] Diagnosis Osteoporosis without current pathological fracture, unspecified osteoporosis type- Primary Alcohol-induced chronic pancreatitis Chronic pancreatitis [facility] Diagnosis Alcohol-induced chronic pancreatitis Chronic pancreatitis [facility] Alcohol-induced chronic pancreatitis- Primary Chronic pancreatitis Encounter for screening for malignant neoplasm of colon Special screening for malignant neoplasms, colon Other osteoporosis without current pathological fracture Epigastric pain Abdominal pain, epigastric Smoking Tobacco use disorder Gastroesophageal reflux disease without esophagitis Esophageal reflux [facility] Diagnosis Alcohol-induced chronic pancreatitis Chronic pancreatitis [facility] Diagnosis Alcohol-induced chronic pancreatitis Chronic pancreatitis [facility] Diagnosis Hypokalemia- Primary Hypopotassemia Acute recurrent pancreatitis Acute pancreatitis documented in this encounter [facility] note* Diagnosis Acute on chronic pancreatitis (HCC)- Primary Abdominal pain, epigastric documented in this encounter [facility] note* Diagnosis Acute pancreatitis without infection or necrosis, unspecified pancreatitis type- Primary Acute recurrent pancreatitis Acute pancreatitis [facility] instructions Additional Instructions Fluids Phenergan if needed for nausea vomiting Bentyl as needed for abdominal pain Follow-up with your GI specialist call Thursday for appointment Return here if any problems persist or worsen [facility] Work Phone: Hospital Discharge instructions Additional Instructions Clear with diet today and advance as tolerated Push fluids Percocet if needed for severe pain Zofran or Phenergan if needed for nausea vomiting Keep your doctor's appointment tomorrow as planned Return here if you develop any increased pain, vomiting unable to be controlled, fevers, chills or [facility]: Hospital Discharge instructions Additional Instructions Follow-up with your primary care doctor Return to ED if develop worsening symptoms or [facility] Work Phone: Hospital Discharge instructions Additional Instructions Follow-up with your private physician as your calcium was slightly elevated Return if symptoms are worse Lots of fluids/no alcoholW[facility] Work Phone: Hospital Discharge instructions* Attachments The following attachments cannot be sent through Care Everywhere. * Clear Liquid Diet: General Info (Martiniquais) [facility] file documented in this encounterProHighland District Hospital SystemInstructionsNot on file documented in this encounterProHighland District Hospital SystemInstructionsNot on file documented in this encounterGrand [facility] Discharge Instructions * Jose Brown [...] Log into your personal health record on [email or web address] and enter E907 in the Education box to learn more about Abdominal Pain: Care Instructions. Current as of: August 03, 2015 Content Version: 11.2 1796-0671 [employer]. Care instructions adapted under license by your healthcare professional. If you have questions about a medical condition or this instruction, always ask your healthcare professional. [employer] disclaims any warranty or liability for your [...] Log into your personal health record on [email or web address] and enter H591 in the Education box to learn more about Nausea and Vomiting: Care Instructions. Current as of: August 03, 2015 Content Version: 11.2 4195-3070 [employer]. Care instructions adapted under license by your healthcare professional. If you have questions about a medical condition or this instruction, always ask your healthcare professional. [employer] disclaims any warranty or liability for your use of this information. Please review regarding your visit: Please note that your blood pressure during this ER visit was above 120/80 mmHg. YOUR BP READING WAS: 111/88 The [place] [employer] (AHA) defines a normal blood [...] review at your convenience for more information: [email or web address] in this encounter* Discharge Instr - Other Orders - Poncho Sparks RN - 05/15/2017 1:20 PM EST Patient voices desire to leave hospital AMA. IV removed. Patient is ambulatory in care of spouse. [facility] hospitalist notified. in this encounter* Montse Khan CNP - 08/24/2017 Seek medical attention if you have worsening symptoms or other concerns. Please follow up with your family doctor or one of your choosing. You may find a provider through the [facility] Physician Referral Service by calling [phone]) or by visiting [email or web address] Chioma, Thank You for choosing [facility]! The following attachments cannot be sent through Care Everywhere. * Nausea and Vomiting (Martiniquais) * Gastroenteritis (Martiniquais) * Diarrhea (Martiniquais) in this encounter The following attachments cannot be sent through Care Everywhere. * Pancreatitis (Martiniquais) in this encounter* Instructions* Laura Meyer RN - 08/25/2019 Patient Instructions: Activity: activity as tolerated Diet: encourage fluids GI specialist in 2 weeks. * Attachments The following attachments cannot be sent through Care Everywhere. * Pancreatitis: Chronic Diet (Martiniquais) * Pancreatitis (Martiniquais) documented in this encounter Assessments Diagnosis Epigastric [...] FoundDocuments on File Type Date Recorded Patient Physical Therapy Director Expl anation Advance Directives and Living Will Power of Manager Safe Latest Code Status on File Code Status Date Activated Date Inactivated Comments Full Code 08/22/2019 4:27 PM Documents on File Type Date Recorded Patient Physical Therapy Director Expl anation Advance Directives and Livin g [...] Documents on File Type Date Recorded Patient Physical Therapy Director Expl anation ACP-Advance Directive ACP-Power of Manager Safe Latest Code Status on File Code Status [...] toradol is contraindicated. Called Dr. Hughes back, conventional mortgage underwriter explained that patient is tolerating dilaudid. Dr. Hughes ordered dose of dilaudid increased from 0.25 mg to 0.5 mg q4 hrs PRN. * Ladan Stearns RN - 08/24/2019 1:27 PM EDT Patient walking in hallway at this time. * Ladan Stearns RN - 08/24/2019 9:14 AM EDT Senior Ssis Developer to patients bedside at this time to reassess pain. Patient sitting in chair, appears restless and is tearful. Patient states Dilaudid did not help the pain, states there is nothing conventional mortgage underwriter can do as she deals with [...] Scheduled for EGD in September with her Oil Well Perforator Operator at [facility] Discharge Planning -- Home when stable Carley Camara APRN, CHILD WELFARE COUNSELOR-C Associated attestation - Rajeev Cantor MD - 08/24/2019 5:30 PM EDT Attending Supervising Physician s Attestation Statement I have personally evaluated and examined the patient [id number] in conjunction with the nurse practitioner. I [...] Examined and Reviewed plan of care with CHILD WELFARE COUNSELOR. Directions and discussion about care and plans. [...] Birmingham RN - 08/23/2019 4:40 PM EDT Senior Ssis Developer contacted Dr. Cantor regarding update that patient [...] he would not give order for Benedryl. Senior Ssis Developer let nurse know that if patient's c/o ithcing and redness doesn't improve in an hour, that conventional mortgage underwriter will be calling back to update physician. * Brie Birmingham RN - 08/23/2019 3:20 PM EDT Senior Ssis Developer called into patient's room d/t patient c/o itching, feeling hot , and slight redness noted to BUE and face. Senior Ssis Developer contacted Dr. Cantor office and left message with his nurse, asking for IV Benedryl and d/c of Lovenox. Patient thinks she may have had reaction to Lovenox in the past, and thatis the only other med she is currently taking here other than Dilaudid. Senior Ssis Developer did once again verify that patient usually [...] medically stable. Patient lives with her in [place]. She uses no DME and has no outside services currently in place. Patient provides for her own transportation needs and manages her medications. She is independent with her ADL's. PCP is [facility]. [facility] and denies needing further assistance with the cost of her medications. Discharge plan is home with no additional services at this time. Patient is a 'Full Code' status. She has no healthcare directives and voices that she is not interested in pursuing these documents further. NEONATAL ICU COORDINATOR to monitor and assist with discharge planning [...] Birmingham RN - 08/23/2019 9:05 AM EDT Senior Ssis Developer made POWER SHOVEL OPERATOR HELPER aware that patient is vomiting at this time since clear liquid diet added. Senior Ssis Developer to give Zofran and place patient back [...] weight loss, but states of weight gain. [id number] Discussed need to re-zero Pt bed to verify gain. She declined education needs states she has a GI doctor and RDN at the [facility]. Reports following the guidelines they recommended. [...] 5. Fluid Accumulation-No significant fluid accumulation, 6. Manager Title Strength-Not measured Nutrition Risk Level: Moderate Nutrient Needs: Estimated Daily Total Kcal: 2778-1652(20-23/kg) Estimated Daily Protein (g): 65-75g(1.3-1.5g/kg) Estimated Daily [...] weight gain/23%, recommend to re-zero Pt bed [place] Body Wt: 110 lb (49.9 kg), % [place] Body 129% BMI Classification: BMI 25.0 - [...] Nausea or Vomiting, Patient/Family Education Contact Number: [phone] * Carley Camara, ALEA - POWER SHOVEL OPERATOR HELPER - 08/23/2019 7:30 AM EDT Progress Note [...] Daily Discharge Plan--later today/tomorrow Carley Camara APRN, CHILD WELFARE COUNSELOR-C Associated attestation - Rajeev Cantor MD - 08/23/2019 12:04 PM EDT Attending Supervising Physician s Attestation Statement I have personally evaluated and examined the patient [id number] in conjunction with the nurse practitioner. I [...] Examined and Reviewed plan of care with CHILD WELFARE COUNSELOR. Directions and discussion about care and plans. [...] Patient arrived to floor [facility] ED in process of running a code on another patient; supervisor computer operations states that report will be called when able. Senior Ssis Developer unable to get ahold of staff inED to put patient in global logistics manager so that conventional mortgage underwriter can transfer patient over to [facility]. [...] Referral Specialty Diagnoses / Procedures Referred By Kangac t Referred To Contact Diagnoses Alcohol-induced chronic pancreatitis Procedures UPPER EUS ND ESOPHAGOGASTRODUODENOSCOPY US SCOPE W/ADJ STRXRS Sabrina Dee MD, MPH [address] [place] [phone] Referral ID Status Reason Start Date Expiration Date V isits Requested Visits Authorized [id number] New Request 06/16/2022 07/11/2023 1 1 Specialty Diagnoses / Procedures Referred By Contac t Referred To Contact Endocrinology, Diabetes & Metabolism Diagnoses Osteoporosis without current pathological fracture, unspecified osteoporosis type Sabrina Dee MD, MPH [address] [place] [phone] Referral ID Status Reason Start Date Expiration Date V isits Requested Visits Authorized [id number] New Request 06/16/2022 07/11/2023 1 1 Specialty Diagnoses / Procedures Referred By Contac t Referred To Contact Diagnoses Encounter for screening colonoscopy Procedures SCREENING COLONOSCOPY ND COLON CA SCRN NOT HI RSK IND Sabrina Dee MD, MPH [address] [place] [phone] Referral ID Status Reason Start Date Expiration Date V isits Requested Visits Authorized [id number] New Request 12/16/2021 01/10/2023 1 1 Specialty Diagnoses / Procedures Referred By Contac t Referred To Contact Diagnoses Recurrent acute pancreatitis History of smoking 25-50 pack years Procedures BONE DENSITY AXIAL (HIP, PELVIS, SPINE) Sabrina Dee MD, MPH [address] [place] [phone] Referral ID Status Reason Start Date Expiration Date V isits Requested Visits Authorized [id number] New Request 12/16/2021 01/10/2023 1 1 Specialty Diagnoses / Procedures Referred By Contac t Referred To Contact Diagnoses Recurrent acute pancreatitis Procedures UPPER EUS ND EGD US GUIDED TRANSMURAL INJXN/FIDUCIAL MARKER Sabrina Dee MD, MPH [address] [place] [address] Referral ID Status Reason Start Date Expiration Date V isits Requested Visits Authorized [id number] New Request 12/16/2021 01/10/2023 1 1 Additional [...] the patient. I discussed the patient with CHILD WELFARE COUNSELOR/PA. I agree with the CHILD WELFARE COUNSELOR/PA treatment plan. I agree with the CHILD WELFARE COUNSELOR/PA plan of care. I agree with the CHILD WELFARE COUNSELOR/PA dispo as documented. 46-year-old female presents with abdominal pain. She states I have chronic pancreatitis and this feels like a flareup . States that she took her usual Phenergan and Dry Fork with minimal relief so came the emergency [...] She is going to follow with her clay dry press mixer operator with whom she has an appointment [...] y.o. : 1970 VISIT DATE: 06/09/2017 CSN: [id number] PCP: Alexander Nichols MD Chief Complaint Patient [...] Phenergan suppository. She states that she took Dry Fork last night. Last dose of Dry Fork was around 9 PM last night. She [...] Surgeon: Romain Dumont MD; Location: [facility]; Service: HYSTERECTOMY ORIF PELVIS ORTHOPEDIC SURGERY WISDOM [...] Yellow Clarity, Urine Cloudy (A) Clear Specific [place] 1.024 1.005 - 1.025 pH, Urine 5.0 [...] Phenergan suppositories. She has follow-up with her clay dry press mixer operator at [facility] in 2 weeks. Do not feel she [...] Information 1. Pineda Troy MD. Specialty: Gastroenterology [facility] [address] [address] Contact information for after-discharge care Follow-up information has not been specified. New Prescriptions No medications on file (Please note that portions of this note may have been completed with a voice recognition software. Efforts were made to correct any errors, but occasionally words are mis-transcribed.) Jose Brown PA-C 06/09/17 2114 Pt states I have pancreatitis and I am having a flare up since last night . Pt relates mid abdominal pain that shoots into the left side of her back. Pt has been taking prescribed Dry Fork without relief and states she has been vomiting.in this encounter I personally interviewed the patient. I personally examined the patient. I discussed the patient with CHILD WELFARE COUNSELOR/PA. I agree with the CHILD WELFARE COUNSELOR/PA treatment plan. I agree with the CHILD WELFARE COUNSELOR/PA plan of care. I agree with the CHILD WELFARE COUNSELOR/PA dispo as documented. I saw evaluate this [...] y.o. : 1970 VISIT DATE: 05/14/2017 CSN: [id number] PCP: Alexander Nichols MD Chief Complaint Patient [...] Surgeon: Romain Dumont MD; Location: [facility]; Service: HYSTERECTOMY ORIF PELVIS ORTHOPEDIC SURGERY WISDOM [...] Colorless, Yellow Clarity, Urine Clear Clear Specific [place] 1.006 1.005 - 1.025 pH, Urine 5.0 [...] in the left lower pelvis. Workstation ID: [id number] Procedures MDM This is a 46-year-old female [...] y.o. : 1970 VISIT DATE: 08/24/2017 CSN: [id number] PCP: Alexander Nichols MD Chief Complaint Patient [...] Surgeon: Romain Dumont MD; Location: [facility]; Service: HYSTERECTOMY ORIF PELVIS ORTHOPEDIC SURGERY WISDOM [...] Yellow Clarity, Urine Hazy (A) Clear Specific [place] 1.006 1.005 - 1.025 pH, Urine 7.0 [...] probably remain. 5. Small left adrenal adenoma. [employer] Workstation ID: [id number] Procedures MDM 47-year-old female [...] she did vomit. She was then given ND Phenergan and a dose of Toradol. She [...] Internal Medicine Why: follow up ER visit [address] [facility] [address] Contact information for after-discharge care Follow-up information [...] the patient. I discussed the patient with CHILD WELFARE COUNSELOR/PA. I agree with the CHILD WELFARE COUNSELOR/PA treatment plan. I agree with the CHILD WELFARE COUNSELOR/PA plan of care. I agree with the CHILD WELFARE COUNSELOR/PA dispo as documented. Formatting of this note may be different from the original. ED PROVIDER NOTE [facility] EMERGENCY DEPARTMENT NAME: Chioma Rainey AGE: 47 y.o. : 1970 VISIT DATE: 03/04/2018 CSN: [id number] PCP: Alexander Nichols MD Chief Complaint Patient [...] Surgeon: Romain Dumont MD; Location: [facility]; Service: HYSTERECTOMY ORIF PELVIS ORTHOPEDIC SURGERY WISDOM [...] Colorless, Yellow Clarity, Urine Clear Clear Specific [place] 1.004 (L) 1.005 - 1.025 pH, Urine [...] Comment Hospitalize Attending Provider or Group: [facility] [[id number]] Phone call required?: No Follow-up Information Follow-up [...] different from the original. Alirio Negro MD [facility] History and Physical Patient Name:Chioma Rainey MR #:[id number] :1970 Admit Date: [id number] Physicians: Alexander Nichols MD (Family); No ref. [...] Surgeon: Romain Dumont MD; Location: [facility]; Service: HYSTERECTOMY ORIF PELVIS ORTHOPEDIC SURGERY WISDOM [...] Diagnoses Acute recurrent pancreatitis Rajeev Cantor MD [address] [place] [address], [place] [address] [facility] Reason Comments Abdominal Pain Pt c/o abdominal [...] Sabrina Dee MD, MPH [address] [place] [phone] Referral ID Status Reason Start Date Expiration Date V isits Requested Visits Authorized [id number] New Request 12/16/2021 01/10/2023 1 1 Specialty Diagnoses / Procedures Referred By Contac t Referred To Contact Diagnoses Recurrent acute pancreatitis Procedures UPPER EUS ND EGD US GUIDED TRANSMURAL INJXN/FIDUCIAL MARKER Sabrina Dee MD, MPH [address] [place] [phone] Referral ID Status Reason Start Date Expiration Date V isits Requested Visits Authorized [id number] New Request 12/16/2021 01/10/2023 1 1 Specialty Diagnoses / Procedures Referred By Contac t Referred To Contact Diagnoses Encounter for screening colonoscopy Procedures SCREENING COLONOSCOPY ND COLON CA SCRN NOT HI RSK IND Sabrina Dee MD, MPH [address] [place] [address] Referral ID Status Reason Start Date Expiration Date V isits Requested Visits Authorized [id number] New Request 12/16/2021 01/10/2023 1 1 Reason Comments Follow-up 6 month follow up Specialty Diagnoses / Procedures Referred By Contac t Referred To Contact Diagnoses Alcohol-induced chronic pancreatitis Procedures UPPER EUS ND ESOPHAGOGASTRODUODENOSCOPY US SCOPE W/ADJ STRXRS Sabrina Dee MD, MPH [address] [place] [address] Referral ID Status Reason Start Date Expiration Date V isits Requested Visits Authorized [id number] New Request 06/16/2022 07/11/2023 1 1 Reason Comments Follow-up Specialty Diagnoses / Procedures Referred By Contac t Referred To Contact Diagnoses Alcohol-induced chronic pancreatitis Procedures UPPER EUS ND EGD US GUIDED TRANSMURAL INJXN/FIDUCIAL MARKER Sabrina Dee MD, MPH [address] [place] [address] Referral ID Status Reason Start Date Expiration Date V isits Requested Visits Authorized [id number] New Request 05/11/2023 06/04/2024 1 1 Referral ID Status Reason Start Date Expiration Date V isits Requested Visits Authorized [id number] New Request 12/23/2023 01/16/2025 1 1 Reason [...] section and content) DATE CREATED AUTHOR 03/09/2018 [facility] DATE CREATED AUTHOR AUTHOR'S ORGANIZ ATION 04/08/2021 [facility] DATE CREATED AUTHOR AUTHOR'S ORGANIZ ATION 06/18/2022 [facility] DATE CREATED AUTHOR AUTHOR'S ORGANIZ ATION 09/02/2023 [facility] DATE CREATED AUTHOR AUTHOR'S ORGANIZ ATION 01/20/2024 [facility] DATE CREATED AUTHOR AUTHOR'S ORGANIZ ATION 04/09/2024 [facility] DATE CREATED AUTHOR AUTHOR'S ORGANIZ ATION 07/22/2024 [facility] Care Teams (unrecognized sec tion and [...] Active Christa Lopez PA-C Emergency Provider Active Undercar Specialist Relationship Specialty Start Date End Date Pineda Troy MD [address] [place] [phone] PCP - Referring 1 Gastroenterology 09/25/17 [facility], Other [address] [place] [address] PCP - General 11/28/19 Undercar Specialist Relationship Specialty Start Date End Date Pineda Troy MD [address] [place] [phone] PCP - Referring 1 Gastroenterology 09/25/17 [facility], Other [address] [place] [address] PCP - General 11/28/19 Undercar Specialist Relationship Specialty Start Date End Date Pineda Troy MD [address] [place] [phone] PCP - Referring 1 Gastroenterology 09/25/17 [facility], Other [address] [place] [address] PCP - General 11/28/19 Undercar Specialist Relationship Specialty Start Date End Date Pineda Troy MD [address] [place] [phone] PCP - Referring 1 Gastroenterology 09/25/17 [facility], Other [address] [place] [facility] [address] PCP - General 11/28/19 Team Status: Inactive Member Role Status Dates NON STAFF Primary Care Provider Active Agustin Llanes MD Emergency Provider Active Undercar Specialist Relationship Specialty Start Date End Date Pineda Troy MD [address] [place] [phone] PCP - Referring 1 Gastroenterology 09/25/17 [facility], Other [address] [place] [facility] [address] PCP - General 11/28/19 Undercar Specialist Relationship Specialty Start Date End Date Pineda Troy MD [address] [place] [phone] PCP - Referring 1 Gastroenterology 09/25/17 [facility], Other [address] [place] [facility] [address] PCP - General 11/28/19 Team Status: Inactive [...] April 18, 2023 End: April 18, 2023 Undercar Specialist Relationship Specialty Start Date End Date Pineda Troy MD [address] [place] [phone] PCP - Referring 1 Gastroenterology 09/25/17 [facility], Other [address] [place] [address] PCP - General 11/28/19 Undercar Specialist Relationship Specialty Start Date End Date Pineda Troy MD PCP - Referring 1 Gastroenterology 09/25/17 [facility], Other [address] [place] [address] PCP - General 11/28/19 Undercar Specialist Relationship Specialty Start Date End Date Pineda Troy MD PCP - Referring 1 Gastroenterology 09/25/17 [facility], Other [address] [place] [address] PCP - General 11/28/19 Undercar Specialist Relationship Specialty Start Date End Date [facility], [facility] [address] [place], [place] PCP - General Family Medicine 03/26/23 Undercar Specialist Relationship Specialty Start Date End Date Services, [facility] [address] [place], [place] PCP - General Family Medicine 03/26/23 Undercar Specialist Relationship Specialty Start Date End Date Services, [facility] [address] [facility] [place] [place] PCP - General Family Medicine 03/26/23 [...] mL/hr 2026 (New Bag - Prov ider: Joyec Soria RN)2121 (Stopped - Provider: Joyce Soria [...] Joyce Soria RN)1711 (Stopped - Provider: Joyce oSria RN) Scheduled Medication Order 04/05/2024 04/06/2024 04/07/2024 [...] BE BASED ON THE PRIMARY CLINICAL RECORDS. [employer] provides no warranty or guarantee of the accuracy or completeness of information in this document.
--- NOTE | 2024-07-26 21:28 | ED.NAVMDI1 ---
HPI - Nausea/Vomiting/Diarrhea General Chief complaint: Nausea/Vomiting/Diarrhea Stated complaint: Nausea/Vomiting/Diarrhea Time Seen by Provider: 07/26/24 21:24 Source: patient Mode of arrival: walk-in Limitations: no limitations History of Present Illness HPI Narrative: This 54-year-old female with a history of chronic pancreatitis who was seen here a week ago by myself for abdominal pain with nausea vomiting and diarrhea presents for reevaluation of the same complaint. She states she has a follow-up appointment at [facility] where she receives her medical care for her pancreatitis and is scheduled for a nerve block the first week of August. She has not had a fever. She denies chest pain or shortness of breath. She states her vomiting and diarrhea are worse than last week. She is a former history of alcohol abuse but no longer drinks. Related Data Allergies Allergy/AdvReac Type Severity Reaction Status Date / Time haloperidol (From Haldol) Allergy Intermediate Hives Verified 07/26/24 21:23 ibuprofen (From Motrin) Allergy Intermediate Hives Verified 07/26/24 21:23 tramadol Allergy Intermediate Hives Verified 07/26/24 21:23 Penicillins Allergy Unknown Anaphylaxis Verified 07/26/24 21:23 morphine Allergy swells Verified 07/26/24 21:23 prochlorperazine (From Allergy Hives Verified 07/26/24 21:23 Compazine) ketorolac (From Toradol) AdvReac Severe Hives Verified 07/26/24 21:23 fentanyl AdvReac Intermediate Hives Verified 07/26/24 21:23 Review of Systems ROS Status of ROS 10 or more systems reviewed and unremarkable except as noted in history and below [facility] Medical History (Updated 07/26/24 @ 22:20 by María Johnson MD) COPD (chronic obstructive pulmonary disease) ?J44.9 - Chronic obstructive pulmonary disease, unspecified (ICD-10) Chronic pancreatitis ?K86.1 - Other chronic pancreatitis (ICD-10) Smoker ?F17.200 - Nicotine dependence, unspecified, uncomplicated (ICD-10) History of gastrostomy tube placement Surgical History (Updated 04/03/23 @ 12:10 by Marni Farley) Hx of esophagogastroduodenoscopy ?Z98.890 - Other specified postprocedural states (ICD-10) H/O colonoscopy ?Z98.890 - Other specified postprocedural states (ICD-10) Hx of cholecystectomy ?Z90.49 - Acquired absence of other specified parts of digestive tract (ICD-10) H/O: hysterectomy ?Z90.710 - Acquired absence of both cervix and uterus (ICD-10) Social History (Updated 04/03/23 @ 12:08 by Marni Farley) Smoking status: Current every day smoker Non-prescribed substance use: denies use Highest level of school completed/degree received: high school graduate Little interest or pleasure in doing things: not at all Feeling down, depressed, or hopeless: not at all Exam Narrative Exam Narrative: Vital signs and Nursing Notes reviewed: Patient is afebrile with a normal pulse, normal blood pressure, she is not hypoxic with pulse ox of 99% on room air General: Awake, alert, oriented, comfortable appearing middle-aged female, no acute distress, lying comfortably on the stretcher-no active vomiting HEENT: Normocephalic atraumatic, mucous membranes are pink and slightly dry, eyes are clear, normal conjunctiva without scleral icterus, vision is grossly intact, Neck: Supple, no meningeal signs, no anterior or posterior cervical lymphadenopathy Chest: Lungs are clear to auscultation with good air entry, there is no wheezing rhonchi or rales appreciated no accessory muscle use, patient is speaking in complete sentences-no chest wall tenderness to palpation CVS: Regular rate and rhythm S1-S2, no murmurs rubs or gallops, pulses are brisk and equal bilaterally ABD: Soft, nondistended, epigastric tenderness with no rebound guarding or rigidity Extremities: Moving all extremities, no lower extremity tenderness or swelling noted, negative Homans' sign, pulses are brisk and equal bilaterally Skin: Normal in appearance without rash,pallor, petechiae or purpura Neuro: No focal deficits Constitutional Vital Signs, click to edit/add: Last Vital Signs Temp 98.1 F 07/26/24 21:20 Pulse 97 H 07/26/24 21:20 Resp 16 07/26/24 21:20 BP 126/58 07/26/24 21:20 Pulse Ox 99 07/26/24 21:20 O2 Del Method Room Air 07/26/24 21:20 Course Vital Signs Vital signs: Vital Signs Temperature 98.1 F 07/26/24 21:20 Pulse Rate 97 H 07/26/24 21:20 Respiratory Rate 16 07/26/24 21:20 Blood Pressure 126/58 07/26/24 21:20 Pulse Oximetry 99 07/26/24 21:20 Oxygen Delivery Method Room Air 07/26/24 21:20 Temperature 98.1 F 07/26/24 21:20 Pulse Rate 97 H 07/26/24 21:20 Respiratory Rate 16 07/26/24 21:20 Blood Pressure 126/58 07/26/24 21:20 Pulse Oximetry 99 07/26/24 21:20 Oxygen Delivery Method Room Air 07/26/24 21:20 MDM - Nausea/Vomiting/Diarrhea MDM Narrative Medical decision making narrative: 54-year-old female presents for evaluation of epigastric abdominal pain with nausea vomiting and diarrhea. She states this is consistent with acute pancreatitis. She has been seen in this emergency department multiple times for pain control. She was here 1 week ago and seen by myself. Her labs were normal at that time. She states she has a follow-up appointment at [facility] where she is supposed to get a pancreatic nerve block in early August. I explained to her that in the emergency department we cannot keep treating her chronic pain. I explained to her that I will check her labs and give her 1 dose of medication and fluids and nausea medication but besides that I am not going to continue to give her IV Dilaudid which is the only narcotic medication she allegedly is not allergic to. An IV was placed and she was medicated with IV fluids Zofran and 1 mg of Dilaudid. She has a normal white count and hemoglobin is stable. CMP and amylase was also ordered. Comprehensive metabolic profile was normal with a mild elevation in her creatinine today compared to last week at 1.03 and lipase is today elevated at 228. The results of her labs were discussed with her. She was encouraged to follow-up closely with her physicians at [facility] for further evaluation and management of her chronic pain. I did review her [facility] report and she last had Rx for narcotic analgesics in June of this year. She has not had any episodes of vomiting or diarrhea while in the ED and will be discharged home after her IVF. Lab Data Labs: Lab Results 07/26/24 Range/Units 21:45 WBC 9.1 (4.0-11.0) 10^3/uL RBC 4.17 L (4.20-5.40) 10^6/uL Hgb 13.9 (12.0-16.0) g/dL Hct 40.9 (36.0-48.0) % MCV 98.1 (81.0-99.0) fL MCH 33.3 (26.7-34.0) pg MCHC 34.0 (29.9-35.2) g/dL RDW 12.6 (11.0-15.0) % Plt Count 268 (150-450) 10^3/uL MPV 9.7 (9.5-13.5) fL Neut % (Auto) 55.6 (43.0-75.0) % Lymph % (Auto) 31.9 (20.5-60.0) % Harris % (Auto) 10.1 (1.7-12.0) % Eos % (Auto) 1.3 (0.9-7.0) % Baso % (Auto) 0.9 (0.2-2.0) % Neut # (Auto) 5.1 (1.4-6.5) 10^3/uL Lymph # (Auto) 2.9 (1.2-3.8) 10^3/uL Harris # (Auto) 0.9 H (0.3-0.8) 10^3/uL Eos # (Auto) 0.1 (0.0-0.7) 10^3/uL Baso # (Auto) 0.1 (0.0-0.1) 10^3/uL Abs Immat Gran (auto) 0.02 (0.00-0.03) 10^3/uL Imm/Tot Granulo (auto) 0.2 (0.0-0.5) % Sodium 140 (136-145) mmol/L Potassium 3.7 (3.5-5.1) mmol/L Chloride 105 (98-107) mmol/L Carbon Dioxide 26.2 (21.0-32.0) mmol/L Anion Gap 12.5 BUN 11.0 (7.0-18.0) mg/dL Creatinine 1.03 H (0.55-1.02) mg/dL Est GFR ( Amer) >60 (>=60 mL/min/1.73m^2) Est GFR (Non-Af Amer) 56 L (>=60 mL/min/1.73m^2) BUN/Creatinine Ratio 10.7 Glucose 127 H (74-106) mg/dL Calcium 9.6 (8.5-10.1) mg/dL Total Bilirubin 0.2 (0.2-1.0) mg/dL AST 14 L (15-37) U/L ALT 20 (14-59) U/L Alkaline Phosphatase 142 H (46-116) U/L Total Protein 6.8 (6.4-8.2) g/dL Albumin 3.4 (3.4-5.0) g/dL Globulin 3.4 g/dL Albumin/Globulin Ratio 1.0 Lipase 228.0 H (16.0-77.0) U/L Discharge Plan Discharge Chief Complaint: Nausea/Vomiting/Diarrhea Clinical Impression: Chronic pancreatitis, Chronic abdominal pain Patient Disposition: Home, Self-Care Time of Disposition Decision: 22:24 Condition: Good Print Language: Chinese Instructions: Chronic Abdominal Pain (DC) Referrals: Physician,Non-Staff, MD [Primary Care Provider] - 1 week
[2024-07-26 21:56] LABS: Basophils Absolute Auto 0.1 10^3/uL (0.0-0.1); Basophils Percent Auto 0.9 % (0.2-2.0); Eosinophils Absolute Auto 0.1 10^3/uL (0.0-0.7); Eosinophils Percent Auto 1.3 % (0.9-7.0); Hematocrit 40.9 % (36.0-48.0); Hemoglobin 13.9 g/dL (12.0-16.0); Immature Granulocytes Abs Auto 0.02 10^3/uL (0.00-0.03); Immature Granulocytes Pct Auto 0.2 % (0.0-0.5); Lymphocytes Absolute Auto 2.9 10^3/uL (1.2-3.8); Lymphocytes Percent Auto 31.9 % (20.5-60.0); Mean Corpuscular Hemoglobin 33.3 pg (26.7-34.0); Mean Corpuscular Volume 98.1 fL (81.0-99.0); Mean Platelet Volume 9.7 fL (9.5-13.5); Monocytes Absolute Auto 0.9 10^3/uL (0.3-0.8); Monocytes Percent Auto 10.1 % (1.7-12.0); Neutrophils Absolute Auto 5.1 10^3/uL (1.4-6.5); Neutrophils Percent Auto 55.6 % (43.0-75.0); Platelet Count 268 10^3/uL (150-450); Red Blood Count 4.17 10^6/uL (4.20-5.40); Red Cell Distribution Width 12.6 % (11.0-15.0); White Blood Count 9.1 10^3/uL (4.0-11.0)
[2024-07-26] MEDS: 0.9 % SODIUM CHLORIDE 1,000 ML 1000 ML IV (22:08)
[2024-07-26] MEDS: HYDROMORPHONE HCL 1 MG/ML CARTRIDGE IV (22:08)
[2024-07-26] MEDS: ONDANSETRON PF 4 MG/2 ML VIAL IV (22:08)
[2024-07-26 22:10] LABS: Alanine Aminotransferase 20 U/L (14-59); Albumin Level 3.4 g/dL (3.4-5.0); Alkaline Phosphatase 142 U/L (46-116); Anion Gap 12.5; Aspartate Amino Transferase 14 U/L (15-37); BUN Creatinine Ratio 10.7; Bilirubin Total 0.2 mg/dL (0.2-1.0); Calcium 9.6 mg/dL (8.5-10.1); Carbon Dioxide 26.2 mmol/L (21.0-32.0); Chloride 105 mmol/L (98-107); Estimated GFR (African America >60 (>=60 mL/min/1.73m^2); Estimated GFR (Non-African Ame 56 (>=60 mL/min/1.73m^2); Globulin 3.4 g/dL; Glucose 127 mg/dL (74-106); Potassium 3.7 mmol/L (3.5-5.1); Sodium 140 mmol/L (136-145); Total Protein 6.8 g/dL (6.4-8.2)
[2024-07-26 23:12] VITALS: BP 105/71; PULSE 75; O2SAT 99
== END 2024-07-26 23:28 | disposition home or self-care (01) ==
PROVIDERS: Emergency Provider Emergency Medicine
DX: K86.1 Other chronic pancreatitis (principal); G89.29 Other chronic pain; F10.11 Alcohol abuse, in remission; F17.200 Nicotine dependence, unspecified, uncomplicated; R10.13 Epigastric pain; R19.7 Diarrhea, unspecified
CPT/HCPCS: 36415; 80053; 83690; 85025; 96361; 96374; 96375; 99284; J1171; J2405

== ENCOUNTER 2024-09-13 12:33 | Emergency (ER) | payer OTHER, SELFPAY ==
--- OUTSIDE RECORDS SUMMARY | 2023-05-29 06:15 | XMS_ITS ---
Author Organization [facility] vices Address [address] [place], [place] [id number] Care Team Providers Care Flow Specialist Name Role Phone Allyson Caballero Unavailable [phone] REASON FOR VISIT Tachycardia & Adrenal Nodule Encounters Encounter Location Date Provider Diagnosis [facility] [address] [place] [address] 05/29/2023 Allyson Caballero Plan Of Treatment No Information Progress Notes * Silvia ARCINIEGAOB:[birth year] (54 yo F)Acc No.[id number]:05/29/2023 Medical Note Patient: Dustin BERRIOS Bernice Provider: Shine Caballero :1970 A ge:52 Y S ex:Female Date:05/29/2023 Address:[address] [facility], [facility] Subjective: * Chief Complaints: * 1 . Tachycardia & Adrenal Nodule. * Medical History: Objective: * Vitals: Assessment: Plan: * Treatment: * Billing Information: * Visit Code: * Procedure Codes: * Electronic signature of COLIN Deal on 09/13/2024 at 12:40 PM EDT Sign off status: Pending * Provider: Shine Caballero Date: 05/29/2023 Generated for Kelvin stewart/Rl/eTleifitting on: 0 09/13/2024 12:40 PM EDT
--- OUTSIDE RECORDS SUMMARY | 2024-09-05 22:15 | XMS_ITS ---
Author Organization OHIP Care Team Providers Care Optical Engineer Name Role Phone [facility], OTHER Primary Care Un available ELLA WILSON Referring Unavailabl e ELLA WILSON Attending Unavailabl e TIMA ESCALERA Attending Unavailable SERVICES, [facility] Primary Care Unava ilable STEPHANIE MAHMOOD Attending Unavailable SERVICES, [facility] Care Unava ilable TABITHA NEWELL Attending Unavailable SERVICES, [facility] Care Unava ilable AGUSTIN MICHAEL Attending Unavailab le SERVICES, [facility] Primary Care Unava ilable VIVIAN TRINH Attending Unavailable SERVICES, [facility] Unava ilable EMILIE JARVIS Attending Unavailable SERVICES, [facility] TABITHA Childers Attending Unavailable SERVICES, [facility] Attending Unavailable SERVICES, [facility] TABITHA Childers Attending Unavailable SERVICES, [facility] TABITHA Childers Attending Unavailable Purpose PROBLEMS DATE TYPE CONDITION / CODE ATTENDING STATUS [facility] 09/05/2024 Unknown Viral intestinal infection, unspecified / A08.4(ICD-10) TABITHA NEWELL [facility] 07/20/2024 Unknown Periapical absce ss without sinus / K04.7(ICD-10) XIN TRINHH [facility] 07/20/2024 Unknown Other specified disorders of teeth and supporting structures / K08.89(ICD-10) MARA TRINHJAH [facility] 07/20/2024 Unknown Dental Pain / FREETEXT(AOF) JYOTHI TRINH [facility] 06/27/2024 Unknown Nausea / FREETEXT(AOF) TABITHA NEWELL [facility] 06/27/2024 Unknown Diarrhea / FREETEXT(AOF) TABITHA NEWELL [facility] 06/15/2024 Unknown 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) EMILIE JARVIS [facility] 06/15/2024 Unknown Vomiting / FREETEXT(AOF) EMILIE JARVIS [facility] 03/18/2024 Unknown Idiopathic acute pancreatitis without necrosis or infection / K85.00(ICD-10) AGUSTIN MICHAEL [facility] 11/28/2019 Admitting diagnosis 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) ELLA WILSON [facility] 01/14/2024 Unknown Unspecified abdominal pain / R10.9(ICD-10) TABITHA NEWELL [facility] 01/14/2024 Unknown Other chronic pa in / G89.29(ICD-10) TABITHA NEWELL [facility] 01/07/2024 Unknown Other chronic pancreatitis / K86.1(ICD-10) [facility] 01/07/2024 Unknown Epigastric pain / R10.13(ICD-10) [facility] 12/29/2023 Unknown Abdominal Pain / FREETEXT(AOF) STEPHANIE MAHMOOD [facility] 12/29/2023 Unknown Abdominal Pain / UNK(Unknown) STEPHANIE MAHMOOD [facility] 08/25/2019 Unknown Acute pancreatit is without necrosis or infection, unspecified / K85.90(ICD-10) [facility] 09/29/2023 Unknown Hypokalemia / E87.6(ICD-10) [facility] PROCEDURES No Procedure Records Found VITAL SIGNS No Vital Signs Records Found RESULTS CBC WITH AUTO DIFFERENTIAL Collected: 0 09/05/2024 10:27 PM Status: COMPLETED Source: [facility] TYPE CODE TESTS RESULT OUT OF RANGE REFERENCE UNITS LAB WBC WBC 9.7 4-11 x10E9/L LAB RBC RBC COUNT 4.44 3.8-5.2 X10E12/L LAB HGB HEMOGLOBIN 15.0 11.7-15.5 g/dL LAB HCT HEMATOCRIT 43.1 35-47 % LAB MCV MCV 97 80-100 fL LAB MCH MCH 33.8 27-34 pg LAB MCHC MCHC 34.8 32-36 g/dL LAB RDW RDW 13.2 11.5-15 % LAB PLTC PLATELET COUNT 275 150-450 X10E9/L LAB MPV MPV 8.0 7-12 fL LAB NEUT NEUTROPHILS RELATIVE PERCENT BY AUTOMATED COUNT 53.3 % LAB LYMP LYMPHOCYTES RELATIVE PERCENT BY AUTOMATED COUNT 35.0 % LAB MONO MONOCYTES RELATIVE PERCENT BY AUTOMATED COUNT 8.5 % LAB EOS EOSINOPHILS RELATIVE PERCENT BY AUTOMATED COUNT 2.1 % LAB BASO BASOPHILS RELATIVE PERCENT BY AUTOMATED COUNT 1.1 % LAB ANEUT NEUTROPHILS ABSOLUTE COUNT BY AUTOMATED COUNT 5.2 1.5-6.6 10*3/uL LAB ALYMP LYMPHOCYTES ABSOLUTE COUNT (10*3/UL) BY AUTOMATED COUNT 3.4 1.0-3.5 10*3/uL LAB AMONO MONOCYTES ABSOLUTE COUNT (10*3/UL) BY AUTOMATED COUNT 0.8 0.0-0.9 10*3/uL LAB AEOS EOSINOPHILS ABSOLUTE COUNT (10*3/UL) BY AUTOMATED COUNT 0.2 0.0-0.4 10*3/uL LAB ABASO BASOPHILS ABSOLUTE COUNT (10*3/UL) BY AUTOMATED COUNT 0.1 0.0-0.2 10*3/uL LAB DTYPE CELLAVISION DIFFERENTIAL TYPE AUTOMATED DIFFERENTIAL Performed By: #### CBCA #### [place] [address] VIR LIPASE Collected: 09/05/2024 10:27 PM Status: COMPLETED Source: [facility] TYPE CODE TESTS RESULT OUT OF RANGE REFERENCE UNITS LAB LIPA LIPASE 44 High 17-40 U/L Performed By: #### LIPA #### [address] [address] VIR COMPREHENSIVE METABOLIC PANEL Collected : 09/05/2024 10:27 PM Status: COMPLETED Source: [facility] TYPE CODE TESTS RESULT OUT OF RANGE REFERENCE UNITS LAB NA SODIUM 139 134-146 mmol/L LAB K POTASSIUM 3.6 3.5-5.0 mmol/L LAB CL CHLORIDE 106 98-109 mmol/L LAB CO2 CARBON DIOXIDE 26 22-32 mmol/L LAB AGAP ANION GAP 7 5-15 mmol/L LAB BUN BLOOD UREA NITROGEN 11 5-23 mg/dL LAB CRET CREATININE 0.74 0.40-1.00 mg/dL Result Comment: METHOD TRACE ABLE TO IDMS STANDARD LAB GLU GLUCOSE 120 High 65-99 mg/dL LAB CA CALCIUM 10.2 8.5-10.5 mg/dL LAB TP TOTAL PROTEIN 7.5 6.0-8.0 g/dL LAB ALB ALBUMIN 4.2 3.2-5.3 g/dL LAB ALK ALKALINE PHOSPHATASE 129 39-130 U/L LAB AST AST 22 <=41 U/L LAB ALT ALT 13 <=31 U/L LAB TBIL BILIRUBIN,TOTAL 0.3 0.3-1.2 mg/dL LAB EGFR EGFR (CKD-EPI) NON-RACE DEPENDENT >^90 >=60 ml/min/1 .73sq.m Result Comment: eGFR not rep orted due to non-numeric value for Creatinine. Reported eGFR is based on the CKD-EPI 2020 equation that does not use a race coefficient. Performed By: #### CMP #### [facility] ([address] [place] [address] [facility] CBC WITH AUTO DIFFERENTIAL Collected: 0 08/10/2024 5:52 PM Status: COMPLETED Source: [facility] TYPE CODE TESTS RESULT OUT OF RANGE REFERENCE UNITS LAB WBC WBC 11.8 High 4-11 x10E9/L LAB RBC RBC COUNT 4.28 3.8-5.2 X10E12/L LAB HGB HEMOGLOBIN 14.2 11.7-15.5 g/dL LAB HCT HEMATOCRIT 41.7 35-47 % LAB MCV MCV 97 80-100 fL LAB MCH MCH 33.1 27-34 pg LAB MCHC MCHC 34.0 32-36 g/dL LAB RDW RDW 13.0 11.5-15 % LAB PLTC PLATELET COUNT 272 150-450 X10E9/L LAB MPV MPV 8.1 7-12 fL LAB NEUT NEUTROPHILS RELATIVE PERCENT BY AUTOMATED COUNT 71.2 % LAB LYMP LYMPHOCYTES RELATIVE PERCENT BY AUTOMATED COUNT 18.1 % LAB MONO MONOCYTES RELATIVE PERCENT BY AUTOMATED COUNT 7.9 % LAB EOS EOSINOPHILS RELATIVE PERCENT BY AUTOMATED COUNT 0.8 % LAB BASO BASOPHILS RELATIVE PERCENT BY AUTOMATED COUNT 2.0 % LAB ANEUT NEUTROPHILS ABSOLUTE COUNT BY AUTOMATED COUNT 8.4 High 1.5-6.6 10*3/uL LAB ALYMP LYMPHOCYTES ABSOLUTE COUNT (10*3/UL) BY AUTOMATED COUNT 2.1 1.0-3.5 10*3/uL LAB AMONO MONOCYTES ABSOLUTE COUNT (10*3/UL) BY AUTOMATED COUNT 0.9 0.0-0.9 10*3/uL LAB AEOS EOSINOPHILS ABSOLUTE COUNT (10*3/UL) BY AUTOMATED COUNT 0.1 0.0-0.4 10*3/uL LAB ABASO BASOPHILS ABSOLUTE COUNT (10*3/UL) BY AUTOMATED COUNT 0.2 0.0-0.2 10*3/uL LAB DTYPE CELLAVISION DIFFERENTIAL TYPE AUTOMATED DIFFERENTIAL Performed By: #### CBCA #### [facility] [address] [place] [address] VIR LIPASE Collected: 08/10/2024 5:52 PM S tatus: COMPLETED Source: [facility] TYPE CODE TESTS RESULT OUT OF RANGE REFERENCE UNITS LAB LIPA LIPASE 138 High 17-40 U/L Performed By: #### LIPA #### [address] [place] [address] VIR COMPREHENSIVE METABOLIC PANEL Collected: 2024 5:52 PM Status: COMPLETED Source: [facility] TYPE CODE TESTS RESULT OUT OF RANGE REFERENCE UNITS LAB NA SODIUM 137 134-146 mmol/L LAB K POTASSIUM 4.3 3.5-5.0 mmol/L LAB CL CHLORIDE 106 98-109 mmol/L LAB CO2 CARBON DIOXIDE 27 22-32 mmol/L LAB AGAP ANION GAP 4 Low 5-15 mmol/L LAB BUN BLOOD UREA NITROGEN 10 5-23 mg/dL LAB CRET CREATININE 0.72 0.40-1.00 mg/dL Result Comment: METHOD TRACE ABLE TO IDMS STANDARD LAB GLU GLUCOSE 115 High 65-99 mg/dL LAB CA CALCIUM 9.8 8.5-10.5 mg/dL LAB TP TOTAL PROTEIN 7.5 6.0-8.0 g/dL LAB ALB ALBUMIN 4.2 3.2-5.3 g/dL LAB ALK ALKALINE PHOSPHATASE 128 39-130 U/L LAB AST AST 23 <=41 U/L LAB ALT ALT 16 <=31 U/L LAB TBIL BILIRUBIN,TOTAL 0.3 0.3-1.2 mg/dL LAB EGFR EGFR (CKD-EPI) NON-RACE DEPENDENT >^90 >=60 ml/min/1 .73sq.m Result Comment: eGFR not rep orted due to non-numeric value for Creatinine. Reported eGFR is based on the CKD-EPI 2020 equation that does not use a race coefficient. Performed By: #### CMP #### [facility] [address] [address] VIR UA W/REFLEX CULTURE Collected: 08/08/2024 7:[address] atus: F Source: [facility] TYPE CODE TESTS RESULT OUT OF RANGE REFERENCE UNITS LAB UCO(LOINC) Color Yellow YEL LAB UTU(LOINC) Clarity, Urine SLIGHTLY CLOUDY Abnormal CLEAR LAB UGL(LOINC) Glucose,Semi-q nt,Ur NEGATIVE NEG mg/dL LAB UBI(LOINC) Bilirubin, SemiQt,Ur NEGATIVE NEG LAB UKE(LOINC) Ketones, Urine NEGATIVE NEG mg/dL LAB USG(LOINC) Spec. [place],Ur 1.020 1.010-1.020 LAB UHB(LOINC) Blood, Urine NEGATIVE NEG [facility] PH,Ur 6.0 5.0-9.0 LAB UPR(LOINC) Protein, Semi-qnt,Ur NEGATIVE NEG mg/dL LAB [facility] Urobilinogen,U r Normal 0.0-1.0 EU/dL LAB UNI[facility] Nitrite,Ur NEGATIVE NEG LAB ULE(LOINC) Leukocyte Esterase NEGATIVE NEG Performed By: #### [facility], [facility] #### [address] [place] [address] Energy Broker: Kye Jasso MD URINALYSIS,MICRO Collected: 5 7:40 PM Status: F Source: [facility] TYPE CODE TESTS RESULT OUT OF RANGE REFERENCE UNITS LAB UWBC(LOINC) Urine WBC's 0 TO 2 0-5 /HPF LAB URBC(LOINC) Urine RBC's 0 TO 2 0-2 /HPF LAB EPITH(LOINC) Epithelial cells 10 TO 20 0-25 /HPF LAB BACT(LOINC) Bacteria 1+ Abnormal NONE LAB MUC(LOINC) Mucus Strands TRACE Abnormal NONE LAB AMORPH(LOINC) Amorphous Sediment TRACE Abnormal NONE Performed By: #### [facility], [facility] #### [address] [place] [address] Energy Broker: Kye Jasso MD LACTIC ACID Collected: 5 7:10 PM Status: F Source: [facility] TYPE CODE TESTS RESULT OUT OF RANGE REFERENCE UNITS LAB LAC([facility]) Lactic Acid 1.2 0.5-2.2 mmol/L Performed By: #### LACTIC ## ## [address] [place] [address] Energy Broker: Kye Jasso MD CBC WITH DIFF Collected: 08/08/2024 7:10 PM Status: F Source: [facility] TYPE CODE TESTS RESULT OUT OF RANGE REFERENCE UNITS LAB WBC(LOINC) WBC Count 10.3 3.5-11.3 k/uL LAB RBC(LOINC) RBC Count 4.46 3.95-5.11 m/uL LAB HGB(LOINC) Hemoglobin 14.9 11.9-15.1 g/dL LAB HCT(LOINC) Hematocrit 44.1 36.3-47.1 % LAB MCV(LOINC) MCV 98.9 82.6-102.9 fL LAB MCH(LOINC) MCH 33.4 25.2-33.5 pg LAB MCHC(LOINC) MCHC 33.8 28.4-34.8 g/dL LAB RDW(LOINC) RDW 12.5 11.8-14.4 % LAB PLT(LOINC) Platelet Count 265 138-453 k/uL LAB MPVX(LOINC) MPV 9.5 8.1-13.5 fL LAB NRBCS(LOINC) NRBC Automated 0.0 0.0 per 100 WBC LAB SEG(LOINC) Neutrophil (Seg) 58 36-65 % LAB LYM(LOINC) Lymphocyte 30 24-43 % LAB MON(LOINC) Monocyte 9 3-12 % LAB EO(LOINC) Eosinophil 2 1-4 % LAB BASO(LOINC) Basophil 1 0-2 % LAB IGRAN(LOINC) Immature Granulocyte 0 0 % LAB ASEG(LOINC) Abs.Neutrophil (Seg) 5.99 1.50-8.10 k/uL LAB ALYM(LOINC) Abs. Lymph 3.09 1.10-3.70 k/uL LAB AMONO(LOINC) Abs. Monocyte 0.88 0.10-1.20 k/u L LAB AEO(LOINC) Abs. Eosinophil 0.17 0.00-0.44 k/u L LAB ABASO(LOINC) Abs. Basophil 0.11 0.00-0.20 k/u L LAB AIGRAN(LOINC) Abs.Imm.Granulo cyte 0.04 0.00-0.30 k/uL Performed By: #### CP, CDP, MG, LIP #### [facility] [address] [place] [address] Energy Broker: Kye Jasso MD COMP METABOLIC PROF Collected: 08/09/19 25 7:10 PM Status: F Source: [facility] TYPE CODE TESTS RESULT OUT OF RANGE REFERENCE UNITS LAB NA(LOINC) NA (Sodium) 139 136-145 mmol/L LAB K(LOINC) K (Potassium) 4.5 3.7-5.3 mmol/L LAB CL(LOINC) Chloride 103 98-107 mmol/L LAB HCO(LOINC) CO2 24 20-31 mmol/L LAB GAP(LOINC) Anion Gap 12 9-16 mmol/L LAB GLU(LOINC) Glucose 86 74-99 mg/dL LAB BUN(LOINC) BUN (Urea N) 16 6-20 mg/dL LAB CRE(LOINC) Creatinine 0.8 0.50-0.90 mg/dL LAB EGFR(LOINC) eGFR 81 >60 mL/min/1. 73m2 Result Comment: These results are not intended [...] renal tubular secretion. LAB BUNCRE(LOINC) BUN/CRE Ratio 20 9-20 LAB CA(LOINC) Calcium 10.2 8.6-10.4 mg/dL LAB TP(LOINC) Protein, Total 7.3 6.6-8.7 g/dL LAB ALB(LOINC) Albumin 4.3 3.5-5.2 g/dL LAB AG(LOINC) Albumin/Glob Ratio 1.5 1.0-2.5 LAB TBIL(LOINC) Bilirubin, Total <0.2 0.00-1.20 mg/dL LAB ALP(LOINC) Alkaline Phos 142 High 35-104 U/L LAB ALT(LOINC) ALT 9 Low 10-35 U/L LAB AST(LOINC) AST 21 10-35 U/L Performed By: #### CP, CDP, MG, LIP #### [facility] [address] [place] [address] [place] [address] Energy Broker: Kye Jasso MD LIPASE Collected: 5 7:10 PM Status: F Source: [facility] TYPE CODE TESTS RESULT OUT OF RANGE REFERENCE UNITS LAB LIP(LOINC) Lipase 109 High 13-60 U/L Performed By: #### CP, CDP, MG, LIP #### [facility] [address] [place] [address] [place], [place] [id number] Energy Broker: Kye Jasso MD MAGNESIUM Collected: 5 7:10 PM Status: F Source: [facility] TYPE CODE TESTS RESULT OUT OF RANGE REFERENCE UNITS LAB MG(LOINC) Magnesium 2.4 1.6-2.6 mg/dL Performed By: #### CP, CDP, MG, LIP #### [facility] [address] [place] [address] [place] [address] Energy Broker: Kye Jasso MD CBC AND AUTO DIFF Collected: 06/27/2024 1:58 PM Status: COMPLETED Source: [facility] TYPE CODE TESTS RESULT OUT OF RANGE REFERENCE UNITS LAB WBC(LOINC) WBC COUNT 8.4 4.0-11.0 X10E9/L LAB RBC(LOINC) RBC COUNT 4.18 3.80-5.20 X10E12/L LAB HGB(LOINC) HEMOGLOBIN 14.3 11.7-15.5 g/dL LAB HCT(LOINC) HEMATOCRIT 40.9 35-47 % LAB MCV(LOINC) MCV 98 80-100 fL LAB MCH(LOINC) MCH 34.2 High 27-34 pg LAB MCHC(LOINC) MCHC 35.0 32-36 g/dL LAB RDW(LOINC) RDW 13.1 11.5-15.0 % LAB PLTC(LOINC) PLATELET COUNT 267 150-450 X10E9 /L LAB MPV(LOINC) MPV 7.9 7-12 fL LAB NEUT(LOINC) % NEUTROPHILS 58.5 % LAB LYMP(LOINC) % LYMPHOCYTES 27.6 % LAB MONO(LOINC) % MONOCYTES 11.4 % LAB EOS(LOINC) % EOSINOPHILS 1.3 % LAB BASO(LOINC) % BASOPHILS 1.2 % LAB ANEUT(LOINC) ABSOLUTE NEUTROPHIL 4.9 1.5-6.6 X10E9/L LAB ALYMP(LOINC) ABSOLUTE LYMPHOCYTE 2.3 1.0-3.5 X10E9/L LAB AMONO(LOINC) ABSOLUTE MONOCYTE 1.0 High 0-0.9 X10E9/L LAB AEOS(LOINC) ABSOLUTE EOSINOPHIL 0.1 0.0-0.4 X10E9/L LAB ABASO(LOINC) ABSOLUTE BASOPHIL 0.1 0.0-0.2 X10E9/L Performed By: #### CBCA, CMP , 3040-3 #### [facility] ([id number]) [address] [place] [address], [place] [address] COMPREHENSIVE METABOLIC PANEL Collected: 2024 1:58 PM Status: COMPLETED Source: [facility] TYPE CODE TESTS RESULT OUT OF RANGE REFERENCE UNITS LAB NA(LOINC) SODIUM 138 134-146 mmol/L LAB K(LOINC) POTASSIUM 3.9 3.5-5.0 mmol/L LAB CL(LOINC) CHLORIDE 104 98-109 mmol/L LAB CO2(LOINC) CARBON DIOXIDE 26 22-32 mmol/L LAB AGAP(LOINC) ANION GAP 8 5-15 mmol/L LAB BUN(LOINC) BLOOD UREA NITROGEN 10 5-23 mg/dL LAB CRET(LOINC) CREATININE 0.76 0.40-1.00 mg/dL Result Comment: METHOD TRACE ABLE TO IDMS STANDARD LAB GLU(LOINC) GLUCOSE 106 High 65-99 mg/dL LAB CA(LOINC) CALCIUM 10.7 High 8.5-10.5 mg/dL LAB TP(LOINC) TOTAL PROTEIN 7.0 6.0-8.0 g/dL LAB ALB(LOINC) ALBUMIN 4.1 3.2-5.3 g/dL LAB ALK(LOINC) ALKALINE PHOSPHATASE 133 High 39-130 U/L LAB AST(LOINC) AST 19 0-41 U/L LAB ALT1(LOINC) ALT 14 0-31 U/L LAB TBIL(LOINC) BILIRUBIN,TOTAL 0.3 0.3-1.2 mg/d L LAB EGFR(LOINC) eGFR (CKD-EPI) NON-RACE DEPENDENT >90 >59 ml/min/1 .73sq.m Result Comment: Reported eGFR is based on the CKD-EPI 2020 equation that does not use a race coefficient. Performed By: #### CBCA, CMP , 3040-3 #### [facility] ([id number]) [address] [place] [address] LIPASE Collected: 06/27/2024 1:58 PM S tatus: COMPLETED Source: [facility] TYPE CODE TESTS RESULT OUT OF RANGE REFERENCE UNITS LAB LIPA(LOINC) LIPASE 37 17-40 U/L Performed By: #### CBCA, [facility] , 3040-3 #### [facility] ([id number]) [address] [place] [address] CBC AND AUTO DIFF Collected: 06/15/2024 6:00 PM Status: COMPLETED Source: [facility] TYPE CODE TESTS RESULT OUT OF RANGE REFERENCE UNITS LAB WBC(LOINC) WBC COUNT 9.8 4.0-11.0 X10E9/L LAB RBC(LOINC) RBC COUNT 4.28 3.80-5.20 X10E12/L LAB HGB(LOINC) HEMOGLOBIN 14.3 11.7-15.5 g/dL LAB HCT(LOINC) HEMATOCRIT 42.3 35-47 % LAB MCV(LOINC) MCV 99 80-100 fL LAB MCH(LOINC) MCH 33.5 27-34 pg LAB MCHC(LOINC) MCHC 33.8 32-36 g/dL LAB RDW(LOINC) RDW 13.3 11.5-15.0 % LAB PLTC(LOINC) PLATELET COUNT 263 150-450 X10E9 /L LAB MPV(LOINC) MPV 8.0 7-12 fL LAB NEUT(LOINC) % NEUTROPHILS 63.5 % LAB LYMP(LOINC) % LYMPHOCYTES 26.2 % LAB MONO(LOINC) % MONOCYTES 8.3 % LAB EOS(LOINC) % EOSINOPHILS 1.1 % LAB BASO(LOINC) % BASOPHILS 0.9 % LAB ANEUT(LOINC) ABSOLUTE NEUTROPHIL 6.2 1.5-6.6 X10E9/L LAB ALYMP(LOINC) ABSOLUTE LYMPHOCYTE 2.6 1.0-3.5 X10E9/L LAB AMONO(LOINC) ABSOLUTE MONOCYTE 0.8 0-0.9 X10E9/L LAB AEOS(LOINC) ABSOLUTE EOSINOPHIL 0.1 0.0-0.4 X10E9/L LAB ABASO(LOINC) ABSOLUTE BASOPHIL 0.1 0.0-0.2 X10E9/L Performed By: #### CBCMadison, FRANNIE , 3040-3, 5643-2, LIVR, 45646-1 #### [facility] ([id number]) [address] [place] [address] BASIC METABOLIC PANL Collected: 06/15/2024 6:00 PM Status: COMPLETED Source: [facility] TYPE CODE TESTS RESULT OUT OF RANGE REFERENCE UNITS LAB NA(LOINC) SODIUM 137 134-146 mmol/L LAB K(LOINC) POTASSIUM 3.3 Low 3.5-5.0 mmol/L LAB CL(LOINC) CHLORIDE 105 98-109 mmol/L LAB CO2(LOINC) CARBON DIOXIDE 24 22-32 mmol/L LAB AGAP(LOINC) ANION GAP 8 5-15 mmol/L LAB BUN(LOINC) BLOOD UREA NITROGEN 9 5-23 mg/dL LAB CRET(LOINC) CREATININE 0.78 0.40-1.00 mg/dL Result Comment: METHOD TRACE ABLE TO IDMS STANDARD LAB GLU(LOINC) GLUCOSE 97 65-99 mg/dL LAB CA(LOINC) CALCIUM 9.7 8.5-10.5 mg/dL LAB EGFR(LOINC) eGFR (CKD-EPI) NON-RACE DEPENDENT >90 >59 ml/min/1. 73sq.m Result Comment: Reported eGFR is based on the CKD-EPI 2020 equation that does not use a race coefficient. Performed By: #### CBCA, BMP , 3040-3, 5643-2, LIVR, 68702-0 #### [facility] ([id number]) [address] [place] [address] LIPASE Collected: 06/15/2024 6:00 PM S tatus: COMPLETED Source: [facility] TYPE CODE TESTS RESULT OUT OF RANGE REFERENCE UNITS LAB LIPA(LOINC) LIPASE 83 High 17-40 U/L Performed By: #### TRACY, FRANNIE , 3040-3, 5643-2, LIVR, 42736-4 #### [facility] ([id number]) [address] [place], [place] [id number] ETHANOL Collected: 06/15/2024 6:00 PM S tatus: COMPLETED Source: [facility] TYPE CODE TESTS RESULT OUT OF RANGE REFERENCE UNITS LAB ALCO(LOINC) ETHANOL <0.01 0.00-0.08 g/dL Result Comment: This report is intended for use in clinical monitoring or management of patients. Performed By: #### TRACY, FRANNIE , 3040-3, 5643-2, LIVR, 10641-0 #### [facility] ([id number]) [address] [place], [place] [id number] LIVER PANEL Collected: 06/15/2024 6:00 PM S tatus: COMPLETED Source: [facility] TYPE CODE TESTS RESULT OUT OF RANGE REFERENCE UNITS LAB ALK2(LOINC) ALKALINE PHOSPHATASE 106 39-130 U/L LAB AST2(LOINC) AST 18 0-41 U/L LAB ALT(LOINC) ALT 12 0-31 U/L LAB TBIL2(LOINC) BILIRUBIN, TOTAL 0.3 0.3-1.2 mg /dL LAB DBIL(LOINC) BILIRUBIN,DIRECT <0.1 0.0-0.4 mg/ dL LAB ALB2(LOINC) ALBUMIN 4.2 3.2-5.3 g/dL LAB TP2(LOINC) TOTAL PROTEIN 7.0 6.0-8.0 g/dL Performed By: #### TRACY, FRANNIE , 3040-3, 5643-2, LIVR, 31369-0 #### [facility] ([id number]) [address] [place] [address] MAGNESIUM Collected: 06/15/2024 6:00 PM S tatus: COMPLETED Source: [facility] TYPE CODE TESTS RESULT OUT OF RANGE REFERENCE UNITS LAB MG(LOINC) MAGNESIUM 2.1 1.8-2.6 mg/dL Performed By: #### CBCA, BMP , 3040-3, 5643-2, LIVR, 51126-9 #### [facility] ([id number]) [address] [place] [address] LACTATE W/REFLEX Collected: 06/15/2024 6:00 PM Status: COMPLETED Source: [facility] TYPE CODE TESTS RESULT OUT OF RANGE REFERENCE UNITS LAB LACTS(LOINC) LACTATE W/REFLEX 1.1 0.4-2.0 mmol/L Result Comment: Result did not trigger repeat Lactate, re-order if needed. Performed By: #### [id number] # ### [facility] ([id number]) [address] [place] [address] ABDOMEN AND PELVIS W CONT Observed: 05/31/2024 3:04 PM Status: COMPLETED Source: [facility] CT ABDOMEN AND PELVIS W CONT History: [...] Collected: 05/31/2024 2:50 PM Status: COMPLETED Source: [facility] TYPE CODE TESTS RESULT OUT OF RANGE [...] By: #### CBCA, CMP , 3040-3 #### [facility] ([id number]) [address] [place] [address] COMPREHENSIVE METABOLIC PANEL Collected: 2024 2:50 PM Status: COMPLETED Source: [facility] TYPE CODE TESTS RESULT OUT OF RANGE [...] Reported eGFR is based on the CKD-EPI 202 equation that does not use a race coefficient. Performed By: #### BONNIE MOLINA , 3040-3 #### [facility] ([id number]) [address] [place] [id number] LIPASE Collected: 05/31/2024 2:50 PM S tatus: COMPLETED Source: [facility] TYPE CODE TESTS RESULT OUT OF RANGE REFERENCE UNITS LAB LIPA(LOINC) LIPASE 104 High 17-40 U/L Performed By: #### CBCA, CMP , 3040-3 #### [facility] ([id number]) [address] [facility] [place] [address] URINALYSIS, ROUTINE Collected: 04/07/2024 5:[address] atus: F Source: [facility] TYPE CODE TESTS RESULT OUT OF RANGE REFERENCE UNITS LAB UCO(LOINC) Color Yellow YEL LAB UTU(LOINC) Clarity, Urine Clear CLEAR LAB UGL(LOINC) Glucose,Semi-q nt,Ur NEGATIVE NEG mg/dL LAB UBI(LOINC) Bilirubin, SemiQt,Ur NEGATIVE NEG LAB UKE(LOINC) Ketones, Urine NEGATIVE NEG mg/dL LAB USG(LOINC) Spec. [place],Ur 1.010 1.010-1.020 LAB UHB(LOINC) Blood, Urine NEGATIVE NEG LAB UPH(LOINC) PH,Ur 5.5 5.0-9.0 LAB UPR(LOINC) Protein, Semi-qnt,Ur NEGATIVE NEG mg/dL LAB UUR(LOINC) Urobilinogen,U r Normal 0.0-1.0 EU/dL LAB UNI(LOINC) Nitrite,Ur NEGATIVE NEG LAB ULE(LOINC) Leukocyte Esterase NEGATIVE NEG Performed By: #### UA #### [facility] [address] [place] [address] Energy Broker: Kye Jasso MD CT ABDOMEN PELVIS W IV CONTRAST Observed: 04/07/2024 4:16 PM Status: F Source: [facility] EXAMINATION: CT OF THE ABDOMEN AND PELVIS [...] Collected: 025 4:12 PM Status: F Source: [facility] TYPE CODE TESTS RESULT OUT OF RANGE [...] 0.50-0.90 mg/dL LAB EGFR(LOINC) eGFR >90 >60 mL/min/1. 73m2 Result Comment: These results are not intended [...] 8.3 Low 8.6-10.4 mg/dL Performed By: #### BMP, LIVP , LIP #### [facility] [address] [place] [address] [place] [address] Energy Broker: Kye Jasso MD LIPASE Collected: 4:12 PM Status: F Source: [facility] TYPE CODE TESTS RESULT OUT OF RANGE REFERENCE UNITS LAB LIP(LOINC) Lipase 266 High 13-60 U/L Performed By: #### BMP, LIVP , LIP #### [facility] [address] [place] [address] [place] [address] Energy Broker: Kye Jasso MD LIVER PROFILE Collected: 04/07/2024 4:12 PM Status: F Source: [facility] TYPE CODE TESTS RESULT OUT OF RANGE [...] Albumin/Glob Ratio 1.7 1.0-2.5 Performed By: #### BMP, LIVP , LIP #### [facility] [address] [place] [address] [place] [address] Energy Broker: Kye Jasso MD CBC WITH DIFF Collected: 04/07/2024 3:15 PM Status: F Source: [facility] TYPE CODE TESTS RESULT OUT OF RANGE REFERENCE UNITS LAB WBC(LOINC) WBC Count 9.3 3.5-11.3 k/uL LAB RBC(LOINC) RBC Count 4.13 3.95-5.11 m/uL LAB HGB(LOINC) Hemoglobin 14.0 11.9-15.1 g/dL LAB HCT(LOINC) Hematocrit 40.1 36.3-47.1 % LAB MCV(LOINC) MCV 97.1 82.6-102.9 fL LAB MCH(LOINC) MCH 33.9 High 25.2-33.5 pg LAB MCHC(INC) MCHC 34.9 High 28.4-34.8 g/dL LAB RDW(LOINC) RDW 13.1 11.8-14.4 % LAB PLT(LOINC) Platelet Count 267 138-453 k/uL LAB MPVX(INC) MPV 10.6 8.1-13.5 fL LAB NRBCS(INC) NRBC Automated 0.0 0.0 per 100 WBC LAB SEG(INC) Neutrophil (Seg) 64 36-65 % LAB LYM(LOINC) Lymphocyte 26 24-43 % LAB MON(LOINC) Monocyte 8 3-12 % LAB EO(LOINC) Eosinophil 1 1-4 % LAB BASO(INC) Basophil 1 0-2 % LAB IGRAN(INC) Immature Granulocyte 0 0 % LAB ASEG(INC) Abs.Neutrophil (Seg) 5.87 1.50-8.10 k/uL LAB ALYM(LOINC) Abs. Lymph 2.39 1.10-3.70 k/uL LAB AMONO(LOINC) Abs. Monocyte 0.76 0.10-1.20 k/u L LAB AEO(LOINC) Abs. Eosinophil 0.13 0.00-0.44 k/u L LAB ABASO(LOINC) Abs. Basophil 0.08 0.00-0.20 k/u L LAB AIGRAN(LOINC) Abs.Imm.Granulo cyte 0.03 0.00-0.30 k/uL Performed By: #### JESUS ALBERTO WATSON #### [facility] [address] [place] [address] Energy Broker: Kye Jasso MD SPECIMEN REJECTION Collected: 04/07/2024 3:15 PM Sta tus: F Source: [facility] TYPE CODE TESTS RESULT OUT OF RANGE REFERENCE UNITS LAB SOURC([facility]) Source of sample .BLOOD LAB ORDER(LOINC) Test ordered LIP,LIVP, BMP LAB REASON(LOINC) Reason for rejection Unable to perform testing: Specimen hemolyzed. Performed By: #### JESUS ALBERTO WATSON #### [facility] [address] [place] [address] Energy Broker: Kye Jasso MD CT ABDOMEN AND PELVIS W CONT Observed: 03/18/2024 3:21 PM Status: COMPLETED Source: [facility] CT ABDOMEN AND PELVIS W CONT CT [...] Collected: 03/18/2024 1:05 PM Status: COMPLETED Source: [facility] TYPE CODE TESTS RESULT OUT OF RANGE [...] By: #### CBCA, CMP , 3040-3 #### [facility] ([id number]) [address] [place] [address], [place] [address] COMPREHENSIVE METABOLIC PANEL Collected: 2024 1:05 PM Status: COMPLETED Source: [facility] TYPE CODE TESTS RESULT OUT OF RANGE [...] a race coefficient. Performed By: #### CBCA, CMP , 3040-3 #### [facility] ([id number]) [address] [place] [address] LIPASE Collected: 03/18/2024 1:05 PM S tatus: COMPLETED Source: [facility] TYPE CODE TESTS RESULT OUT OF RANGE REFERENCE UNITS LAB LIPA(LOINC) LIPASE 73 High 17-40 U/L Performed By: #### CBCA, CMP , 3040-3 #### [facility] ([id number]) [address] [place] [address] URN MACROSCOPIC JERE Collected: 01/14/2024 4:45 PM Status: COMPLETED Source: [facility] TYPE CODE TESTS RESULT OUT OF RANGE [...] value) NEG Performed By: #### NUM #### [facility] ([id number]) [address] [place] [address], [place] [address] CT ABDOMEN AND PELVIS W CONT Observed: 01/14/2024 4:44 PM Status: COMPLETED Source: [facility] CT ABDOMEN AND PELVIS W CONT CLINICAL [...] Collected: 01/14/2024 4:15 PM Status: COMPLETED Source: [facility] TYPE CODE TESTS RESULT OUT OF RANGE [...] Performed By: #### CBCA, CMP , 3040-3, 79825-9 #### [facility] ([id number]) [address] [place] [address], [place] [address] COMPREHENSIVE METABOLIC PANEL Collected: 2023 4:15 PM Status: COMPLETED Source: [facility] TYPE CODE TESTS RESULT OUT OF RANGE [...] Performed By: #### BONNIE MOLINA , 3040-3, 53415-1 #### [facility] ([id number]) [address] [place] [address] LIPASE Collected: 01/14/2024 4:15 PM S tatus: COMPLETED Source: [facility] TYPE CODE TESTS RESULT OUT OF RANGE REFERENCE UNITS LAB LIPA(LOINC) LIPASE 72 High 17-40 U/L Performed By: #### BONNIE MOLINA , 3040-3, 60768-0 #### [facility] ([id number]) [address] [place] [address] MAGNESIUM Collected: 01/14/2024 4:15 PM S tatus: COMPLETED Source: [facility] TYPE CODE TESTS RESULT OUT OF RANGE REFERENCE UNITS LAB MG(LOINC) MAGNESIUM 2.2 1.8-2.6 mg/dL Performed By: #### BONNIE MOLINA , 3040-3, 42131-7 #### [facility] ([id number]) [address] [place] [address], [place] [address] URINALYSIS W/ MICRO Collected: 01/07/2024 4:[address] atus: F Source: [facility] TYPE CODE TESTS RESULT OUT OF RANGE REFERENCE UNITS LAB UCO(LOINC) Color Yellow YEL LAB UTU(LOINC) Clarity, Urine Clear CLEAR LAB UGL(LOINC) Glucose,Semi-qn t,Ur NEGATIVE NEG mg/dL LAB UBI(LOINC) Bilirubin, SemiQt,Ur NEGATIVE NEG LAB UKE(LOINC) Ketones, Urine NEGATIVE NEG mg/dL LAB USG(LOINC) Spec. [place],Ur 1.010 1.010-1.020 LAB UHB(LOINC) Blood, Urine NEGATIVE NEG LAB UPH(LOINC) PH,Ur 6.0 5.0-9.0 LAB UPR(LOINC) Protein, Semi-qnt,Ur NEGATIVE NEG mg/dL LAB UUR(LOINC) Urobilinogen,Ur Normal 0.0-1.0 EU/dL LAB UNI(LOINC) Nitrite,Ur NEGATIVE NEG LAB ULE(LOINC) Leukocyte Esterase NEGATIVE NEG LAB UWBC(LOINC) Urine WBC's 0 TO 2 0-5 /HPF LAB URBC(LOINC) Urine RBC's None 0-2 /HPF LAB EPITH(LOINC) Epithelial cells 0 TO 2 0-25 /HPF Performed By: #### UAMIC ### # [facility] [address] [place] [address] Energy Broker: Kye Jasso MD CBC WITH DIFF Collected: 01/07/2024 2:56 PM Status: F Source: [facility] TYPE CODE TESTS RESULT OUT OF RANGE [...] Performed By: #### LIP, CDP, CP #### [facility] [address] [place] [address] Energy Broker: Kye Jasso MD COMP METABOLIC PROF Collected: 01/07/20 24 2:56 PM Status: F Source: [facility] TYPE CODE TESTS RESULT OUT OF RANGE [...] 0.50-0.90 mg/dL LAB EGFR(LOINC) eGFR >90 >60 mL/min/1. 73m2 Result Comment: These results are not intended [...] recollection if clinically indicated. Performed By: #### LIP, CDP, CP #### [facility] [address] [place] [address] Energy Broker: Kye Jasso MD LIPASE Collected: 4 2:56 PM Status: F Source: [facility] TYPE CODE TESTS RESULT OUT OF RANGE REFERENCE UNITS LAB LIP(LOINC) Lipase 144 High 13-60 U/L Performed By: #### LIP, CDP, CP #### [facility] [address] [place] [address] Energy Broker: Kye Jasso MD LACTIC ACID Collected: 2:56 PM Status: F Source: [facility] TYPE CODE TESTS RESULT OUT OF RANGE REFERENCE UNITS LAB LAC(LOINC) Lactic Acid 1.3 0.5-2.2 mmol/L Performed By: #### LACTIC ## ## [facility] [address] [place] [address] Energy Broker: Kye Jasso MD 1 HOUR TROP I, HIGH SENSITIVITY Collected: 12/08 6:32 AM Status: COMPLETED Source: [facility] TYPE CODE TESTS RESULT OUT OF RANGE REFERENCE UNITS LAB TNIHS1(LOINC) 1 HOUR TROP I, HIGH SENSITIVITY 2 <16 ng/L Performed By: #### 40435-2 # ### [facility] ([id number]) [address] [place] [address], [place] [address] CT ABDOMEN AND PELVIS WO CONT Observed: 12/29/2023 6:15 AM Status: COMPLETED Source: [facility] CT ABDOMEN AND PELVIS WO CON T [...] Collected: 12/29/2023 5:30 AM Status: COMPLETED Source: [facility] TYPE CODE TESTS RESULT OUT OF RANGE [...] 0.1 0.0-0.2 X10E9/L Performed By: #### CBCA, BMP , 66707-3, LIVR, 25879-4, 43699-2, 5643-2, 3040-3 #### [facility] ([id number]) [address] [place] [address], [place] [address] BASIC METABOLIC PANL Collected: 12/29/2023 5:30 AM Status: COMPLETED Source: [facility] TYPE CODE TESTS RESULT OUT OF RANGE [...] a race coefficient. Performed By: #### CBCA, BMP , 82065-9, LIVR, 59350-8, 14380-6, 5643-2, 3040-3 #### [facility] ([id number]) [address] [place] [address], [place] [address] D DIMER Collected: 5:30 AM Status: COMPLETED Source: [facility] TYPE CODE TESTS RESULT OUT OF RANGE [...] if the patient's symptoms persist or worsen. [email or web address] Performed By: #### CBCA, BMP , 78926-4, LIVR, 38587-1, 52328-6, 5643-2, 3040-3 #### [facility] ([id number]) [address] [place] [address] LIVER PANEL Collected: 12/29/2023 5:30 AM S tatus: COMPLETED Source: [facility] TYPE CODE TESTS RESULT OUT OF RANGE [...] PROTEIN 6.9 6.0-8.0 g/dL Performed By: #### CBCA, BMP , 92211-7, LIVR, 67120-4, 68132-9, 5643-2, 3040-3 #### [facility] ([id number]) [address] [place] [address] MAGNESIUM Collected: 12/29/2023 5:30 AM S tatus: COMPLETED Source: [facility] TYPE CODE TESTS RESULT OUT OF RANGE REFERENCE UNITS LAB MG(LOINC) MAGNESIUM 2.2 1.8-2.6 mg/dL Performed By: #### CBCA, BMP , 05656-9, LIVR, 37215-0, 23890-2, 5643-2, 3040-3 #### [facility] ([id number]) [address] [place] [address] TROPONIN I, HIGH SENSITIVITY Collected: 5:30 AM Status: COMPLETED Source: [facility] TYPE CODE TESTS RESULT OUT OF RANGE REFERENCE UNITS LAB TNIHS(LOINC) TROPONIN I, HIGH SENSITIVITY 2 <16 ng/L Performed By: #### CBCA, BMP , 94847-1, LIVR, 48567-1, 39953-7, 5643-2, 3040-3 #### [facility] ([id number]) [address] [place] [address] ETHANOL Collected: 12/29/2023 5:30 AM S tatus: COMPLETED Source: [facility] TYPE CODE TESTS RESULT OUT OF RANGE REFERENCE UNITS LAB ALCO(LOINC) ETHANOL <0.01 0.00-0.08 g/dL Result Comment: This report is intended for use in clinical monitoring or management of patients. Performed By: #### BRIEA, BMP , 70471-6, LIVR, 31254-7, 49673-2, 5643-2, 3040-3 #### [facility] ([id number]) [address] [place] [address] LIPASE Collected: 12/29/2023 5:30 AM S tatus: COMPLETED Source: [facility] TYPE CODE TESTS RESULT OUT OF RANGE REFERENCE UNITS LAB LIPA(LOINC) LIPASE 55 High 17-40 U/L Performed By: #### BRIEA, BMP , 70363-4, LIVR, 82907-1, 91474-0, 5643-2, 3040-3 #### [facility] ([id number]) [address] [place] [address] UA W/REFLEX CULTURE Collected: 09/29/2023 7:[address] atus: F Source: [facility] TYPE CODE TESTS RESULT OUT OF RANGE REFERENCE UNITS LAB UCO(LOINC) Color Yellow YEL LAB UTU(LOINC) Clarity, Urine Clear CLEAR LAB UGL(LOINC) Glucose,Semi-q nt,Ur NEGATIVE NEG mg/dL LAB UBI(LOINC) Bilirubin, SemiQt,Ur NEGATIVE NEG LAB UKE(LOINC) Ketones, Urine NEGATIVE NEG mg/dL LAB USG(LOINC) Spec. [place],Ur >1.030 High 1.010-1.020 LAB UHB(LOINC) Blood, Urine NEGATIVE NEG LAB UPH(LOINC) PH,Ur 6.0 5.0-9.0 LAB UPR(LOINC) Protein, Semi-qnt,Ur NEGATIVE NEG mg/dL LAB UUR(LOINC) Urobilinogen,U r Normal 0.0-1.0 EU/dL LAB UNI(LOINC) Nitrite,Ur NEGATIVE NEG LAB ULE([facility]) Leukocyte Esterase NEGATIVE NEG Performed By: #### [place], [facility] #### [facility] [address] [place] [address] [place] [address] Energy Broker: Kye Jasso MD URINALYSIS,MICRO Collected: 7:37 PM Status: F Source: [facility] TYPE CODE TESTS RESULT OUT OF RANGE REFERENCE UNITS LAB UWBC([facility]) Urine WBC's 0 TO 2 0-5 /HPF LAB URBC([facility]) Urine RBC's 0 TO 2 0-2 /HPF LAB EPITH([facility]) Epithelial cells 2 TO 5 0-25 /HPF LAB BACT([facility]) Bacteria TRACE Abnormal NONE Performed By: #### [place], [facility] #### [facility] [address] [place] [address] [place] [address] Energy Broker: Kye Jasso MD CBC WITH DIFF Collected: 09/29/2023 7:30 PM Status: F Source: [facility] TYPE CODE TESTS RESULT OUT OF RANGE [...] Performed By: #### CP, LIP, CDP #### [facility] [address] [place] [address] Energy Broker: Kye Jasso MD COMP METABOLIC PROF Collected: 09/29/19 24 7:30 PM Status: F Source: [facility] TYPE CODE TESTS RESULT OUT OF RANGE [...] 0.5-0.9 mg/dL LAB EGFR(LOINC) eGFR 88 >60 mL/min/1. 73m2 Result Comment: These results are not intended [...] LAB ALT(LOINC) ALT 15 5-33 U/L LAB AST(INC) AST 21 <32 U/L Performed By: #### HARITHA LIP, CDP #### [facility] [address] [place] [address] Energy Broker: Kye Jasso MD LIPASE Collected: 4 7:30 PM Status: F Source: [facility] TYPE CODE TESTS RESULT OUT OF RANGE REFERENCE UNITS LAB LIP(LOINC) Lipase 141 High 13-60 U/L Performed By: #### CP, LIP, CDP #### [facility] [address] [place] [address] Energy Broker: Kye Jasso MD ALLERGIES DATE TYPE / CODE NAME / CODE REACTION SEVERITY SOURCE 03/18/2024 DRUG INGREDI~NON-CBO RD/[id number](SN OMED CT) PROCHLORPERAZINE Anaphylaxis High [facility] 09/12/2020 DRUG INGREDI~NON-CBO RD/[id number](SN OMED CT) FENTANYL Hives High [facility] 06/12/2020 DRUG INGREDI~NON-CBO RD/[id number](SN OMED CT) KETOROLAC [facility] 08/23/2019 DRUG INGREDI/6778466 03(SNOMED CT) ENOXAPARIN Itching [facility] 08/23/2019 DRUG INGREDI~NON-CBO RD/[id number](SN OMED CT) ENOXAPARIN Itching~Rash [facility] 10/09/2017 DRUG INGREDI~NON-CBO RD/387142183(SN OMED CT) IBUPROFEN Anaphylaxis High [facility] 10/09/2017 Drug Class~NON-CBORD /602662506(SNOM ED CT) PENICILLINS Anaphylaxis High [facility] 10/09/2017 DRUG INGREDI~NON-CBO RD/758285355(SN OMED CT) HALOPERIDOL [facility] 10/09/2017 DRUG INGREDI~NON-CBO RD/[id number](SN OMED CT) MORPHINE [facility] 10/09/2017 DRUG INGREDI~NON-CBO RD/738699939(SN OMED CT) TRAMADOL [facility] 06/30/2016 DRUG INGREDI~NON-CBO RD/[id number](SN OMED CT) METOCLOPRAMIDE Anxiety Low [facility] ENCOUNTERS ADMIT/DISCHARGE ACCOUNT NUMBER ADMITTING ENCOUNTER CLASS LOCATION SOURCE 09/05/2024/09/06/19 [id number] Emergency Building:PFM_E DRoom: 10Bed: 10 [facility] 08/10/2024/08/11/19 25 [id number] Emergency Building:PF_E DRoom: 2Bed: 02 [facility] 08/08/2024/08/09/19 25 [id number] Emergency Building:[facility] om: 05Bed: 05 [facility] 07/20/2024/07/22/19 25 [id number] Emergency Building:PFM_E DRoom: 9Bed: 09 [facility] 06/27/2024/06/28/19 25 [id number] Emergency Building:PFM_E DRoom: 10Bed: 10 [facility] 06/15/2024/06/16/19 [id number] Emergency Building:PFM_E DRoom: 1Bed: 01 [facility] 05/31/2024/06/01/19 [id number] Emergency Building:PFM_E DRoom: 8Bed: 08 [facility] 04/07/2024/04/07/19 [id number] Emergency Building:TEDRo om: 10Bed: 10 [facility] 03/18/2024/03/18/19 25 [id number] Emergency Building:PFM_E DRoom: 3Bed: 03 [facility] 01/19/2024 [id number] [facility] ng:D2NENS [facility] 01/14/2024/01/14/20 24 [id number] Emergency Building:PFM_E DRoom: 3Bed: 03 [facility] 01/07/2024/01/07/20 24 [id number] Emergency Building:TEDRo om: 11Bed: 11 [facility] 12/29/2023/12/29/19 24 [id number] Emergency Building:PFM_E DRoom: 2Bed: 02 [facility] 09/29/2023/09/29/19 24 [id number] Emergency Building:TEDRo om: 03Bed: 03 [facility] FUNCTIONAL STATUS No Functional Status Records Found EQUIPMENT No Equipment Records Found 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 SOURCE 09/05/2024 CHIOMA DARDEN: [place] [address]Ujp: () Primary Insurance:[employer] HMOPolicy Number: [id number] Date:2022-04-09 CHIOMA DARDEN: [id number] [place] [address] [facility] 08/10/2024 CHIOMA DARDEN: [place] [address]Mjd: (HP) Primary Insurance:[employer] HMOPolicy Number: [id number] Date:2022-04-09 CHIOMA DARDEN: [id number] [place] [address] [facility] 08/08/2024 CHIOMA DARDEN: [place] [address] Primary Insurance:[facility] Number: [id number] Date:2023-06-08[address] [place] [address]TB: CHIOMA DARDEN: [id number] [place], [place] [address]Ftb: (HP) (WP) [facility] 08/08/2024 [facility] Number: [id number] Date:[id number], [place] [address]EV: CHIOMA DARDEN: [id number] [place], [place] [address]Xsk: (HP) (WP) [facility] 07/20/2024 CHIOMA DARDEN: [place] [address]Zko: (HP) Primary Insurance:[employer] HMOPolicy Number: [id number] Date:2022-04-09 CHIOMA DARDEN: [id number] [place] [address] [facility] 06/27/2024 CHIOMA DARDEN: [place] [address]Tcr: (HP) Primary Insurance:[employer] HMOPolicy Number: [id number] Date:2022-04-09 CHIOMA DARDEN: [id number] [place] [address] [facility] 06/15/2024 CHIOMA DARDEN: [place] [address]Qvr: (HP) Primary Insurance:[employer] HMOPolicy Number: [id number] Date:2022-04-09 CHIOMA DARDEN: [id number] [place] [address] [facility] 05/31/2024 CHIOMA DARDEN: [place] [address]Dpq: (HP) Primary Insurance:[employer] HMOPolicy Number: [id number] Date:2022-04-09 CHIOMA DARDEN: [id number] [place] [address] [facility] 04/07/2024 CHIOMA DARDEN: [place] [place] [address]Tlr: (HP) Primary Insurance:[facility] Number: [id number] Date:2023-06-08[address] [address]ZL: CHIOMA DARDEN: [id number] [place], [place] [address]Gdm: (HP) () [facility] 04/07/2024 Secondary Insurance[facility] Number: [id number] Date:[id number], [place] [address]LQ: CHIOMA DARDEN: [id number] [place], [place] [address]Lcz: (HP) () [facility] 03/18/2024 CHIOMA KATALINA: [place] [address]Eax: (HP) Primary Insurance:[facility] ADVPolicy Number: [id number] Date:2023-06-08 CHIOMA KATALINA: [id number] [place] [address] [facility] 03/18/2024 Secondary Insurance:[employer] HMOPolicy Number: [id number] Date:2022-04-09 CHIOMA DARDEN: [id number] [place] [address] [facility] 01/19/2024 CHIOMA LENNOX: [place], [place] [address]Gim: ~(61 4 (HP) Primary Insurance:CARESOURCEPol y Number: [id number] Date:[id number] Name:ERICK FIELDSKRISTY: [id number] [place] [place], [place] [address]Avx: (HP) [facility] 01/14/2024 CHIOMA KATALINA: [place] [address]Wgy: (HP) [facility] AD[facility]Policy Number: [id number] Date:2023-06-08 CHIOMA KATALINA: [id number] [place] [place], [place] [address]Dir: (HP) [facility] 01/14/2024 Secondary Insurance:[facility] OPolicy Number: [id number] Date:2022-04-09 CHIOMA DARDEN: [id number] [place] [address]Dzr: (HP) [facility] 01/07/2024 CHIOMA DARDEN: [address] [place] [place], [place] [address]Amh: (HP) Primary Insurance:[facility] Number: [id number] Date:2023-06-[address] [address]VV: CHIOMA DARDEN: [id number] [place], [place] [address]Ymv: (HP) (WP) [facility] 01/07/2024 Secondary Insurance:[facility] reyesy Number: [id number] Date:4077-38-64[address], [place] [address]NG: CHIOMA DARDEN: [id number] [place], [place] [address]Woz: (WP) [facility] 12/29/2023 CHIOMA DARDEN: [place] [address]Nej: (HP) Primary Insurance:[employer] HMOPolicy Number: [id number] Date:2022-04-09 CHIOMA DARDEN: [id number] [place] [address]Mgf: (HP) [facility] 09/29/2023 CHIOMA DARDEN: [address] [place], [place] [address]Fbp: (HP) Primary Insurance:[facility] icy Number: [id number] Date:[id number] [address]RZ: CHIOMA DARDEN: [id number] [place] [place], [place] [address]Htk: (HP) (WP) [facility] SOCIAL HISTORY No Social History Records Found FAMILY HISTORY No Family History Records Found ADVANCE DIRECTIVES No Advanced Directives Records Found INFORMATION SOURCE DATE CREATED AUTHOR AUTHOR'S QUANG ATTEDDY 09/14/2024 OHIP
--- OUTSIDE RECORDS SUMMARY | 2024-09-05 22:15 | XMS_ITS | Encounter Summary ---
Author Organization [facility] tem Address [id number] [address] [place] [address] Care Team Providers Care Organ Grinder Name Role Phone Services, [facility] Primary Care Provider Reason for Visit * Reason Comments Vomiting Encounter Details Date Type Department Care Team (Late st Contact Info) Description 09/05/2024 10:15 PM EDT - 09/05/2024 11:[address] [facility] - Emergency [address] [place] [id number] Aydin Wilson MD [address] [place] [address] Viral gastroenteritis (Primary Dx); Chronic pancreatitis, unspecified pancreatitis type ([facility]) Discharge Disposition: Home Social History Tobacco Use Types Packs/Day Years Used Date Smoking Tobacco: Every Day Cigarettes 0.3 20 Started: 10/30/2000; Last attempted to quit: 10/30/2020 Smokeless Tobacco: Never Alcohol Use Standard Drinks/Week Comments Not Currently 0 (1 standard drink = 0.6 oz pure alcohol) Has not consumed alcohol in 12 years Childcare Answer Date Recorded Childcare Unknown 08/11/2018 Employment Answer Date Recorded Employment Unknown 08/11/2018 Hunger Screening Answer Date Recorded Within the past 12 months we worried whether our food would run out before we got money to buy more. Never True 09/05/2024 Within the past 12 months th e food we bought just didn't last and we didn't have money to get more. Never True 09/05/2024 Purpose - Life Answer Date Recorded Purpose and direction in life Unknown Comments No Sex and Gender Information Value Date Recorded Sex Assigned at Not on file Legal Sex Female 12:09 PM EDT Gender Identity Not on file Sexual Orientation Not on file documented as of this encounter Last Filed Vital Signs Vital Sign Reading Time Taken Comments Blood Pressure 130/88 09/05/2024 11:44 PM EDT Pulse 82 09/05/2024 11:44 PM EDT Temperature 36.6 C (97.9 F) 09/05/2024 10:18 PM EDT Respiratory Rate 18 09/05/2024 11:44 PM EDT Oxygen Saturation 98% 09/05/2024 11:44 PM EDT Inhaled Oxygen Concentration - - Weight 59 kg (130 lb) 09/05/2024 10:18 PM EDT Height 157.5 cm (5' 2 ) 09/05/2024 10:18 PM EDT Body Mass Index 23.78 09/05/2024 10:18 PM EDT documented in this encounter Discharge Instructions * Attachments The following attachments cannot be sent through Care Everywhere. * Pancreatitis ??? Discharge instructions ([place] Island[place]) * Viral gastroenteritis in adults ([place]) documented in this encounter Medications at Time of Discharge amitriptyline (ELAVIL) 10 mg tablet Take 25 mg by mouth. 12/01/2019 amitriptyline (ELAVIL) 25 mg tablet Take 1 tablet (25 mg total) by mouth nightly. 15 tablet 15 08/26/2021 dicyclomine (BENTYL) 20 mg tablet Take 1 tablet (20 mg total) by mouth every 6 (six) hours. 20 tablet 08/26/2021 dicyclomine (BENTYL) 20 mg tablet Take 1 tablet (20 mg total) by mouth in the morning and 1 tablet (20 mg total) before bedtime. 20 tablet 03/27/2023 famotidine (PEPCID) 20 mg tablet Take 1 tablet (20 mg total) by mouth in the morning and 1 tablet (20 mg total) before bedtime. 30 tablet 12/29/2023 ldwpai-tjwgacob-ikd lase (CREON) 12,000-38,000 -60,000 unit capsule,delayed release(DR/EC) capsule Take 1 capsule (12,000 units of lipase total) by mouth in the morning and 1 capsule (12,000 units of lipase total) at noon and 1 capsule (12,000 units of lipase total) in the evening. Take with meals. naloxone (NARCAN) 4 mg/actuation spray,non-aerosol nasal spray Administer 1 spray (4 mg total) into alternating nostrils as needed for opioid reversal. 06/15/2024 ondansetron ODT (ZOFRAN ODT) 4 mg disintegrating tablet Dissolve 1 tablet (4 mg total) on tongue every 8 (eight) hours as needed for nausea for up to 10 doses. 10 tablet 12/29/2023 ondansetron ODT (ZOFRAN ODT) 4 mg disintegrating tablet Dissolve 1 tablet (4 mg total) on tongue every 8 (eight) hours as needed for nausea for up to 10 doses. 10 tablet 06/15/2024 promethazine (PHENERGAN) 25 mg tablet Take 1 tablet (25 mg total) by mouth every 6 (six) hours as needed for nausea or vomiting. 15 tablet 06/27/2024 documented as of this encounter ED Notes * Aydin Wilson MD - 09/05/2024 10:27 PM EDT Images from the original note were not included. [facility] - EMERGENCY Pt Name: Bernice Arciniega Birthdate: 1970 Chief Complaint: Chief Complaint Patient presents with ??? Vomiting History of Present Illness: Patient arrives by private vehicle with epigastric pain which she states is from her chronic pancreatitis. She has had it for years from heavy drinking although she has not drank alcohol in some timenow. She sees GI at [facility]. She has not seen them for about 9 months. She has had nofever. She has had vomiting and diarrhea. Past Medical History: Past Medical History: Diagnosis Date ??? Allergic ??? Anxiety ??? Arthritis ??? Injury of back ??? Pancreatitis Past Surgical History: Past Surgical History: Procedure Laterality Date ??? CHOLECYSTECTOMY ??? HYSTERECTOMY Family History: Family History Problem Relation Age of Onset ??? Breast cancer Mother ??? Cancer Maternal Grandmother ??? Cancer Maternal Grandfather ??? Alzheimer's disease Maternal Grandfather Social History: Social History Socioeconomic History ??? Marital status: Tobacco Use ??? Smoking status: Every Day Current packs/day: 0.00 Average packs/day: 0.3 packs/day for 20.0 years (5.0 ttl pk-yrs) Types: Cigarettes Start date: 10/30/2000 Last attempt to quit: 10/30/2020 Years since quittin.8 ??? Smokeless tobacco: Never Vaping Use ??? Vaping status: Never Used Substance and Sexual Activity ??? Alcohol use: Not Currently Comment: Has not consumed alcohol in 12 years ??? Drug use: No ??? Sexual activity: Defer Social Drivers of Health Food Insecurity: No Food Insecurity (09/05/2024) Hunger Screening ??? Food Insecurity - Worry: Never True ??? Food Insecurity - Inability: Never True Review of Systems: Review of Systems Physical Exam: ED Triage Vitals [09/05/242217] Temp Heart Rate Resp BP SpO2 36.6 ??C (97.9 ??F) 99 18 (!) 131/94 97 % Temp Source Heart Rate Source Patient Position BP Location FiO2 (%) Oral Pulse Ox Sitting Left arm -- Vitals: 09/05/242217 BP: (!) 131/94 Temp: 36.6 ??C (97.9 ??F) TempSrc: Oral Pulse: 99 Resp: 18 SpO2: 97% Height: 157.5 cm (5' 2 ) Weight: 59 kg (130 lb) Physical Exam Vitals and nursing note reviewed. Constitutional: Appearance: She is well-developed. HENT: Head: Normocephalic and atraumatic. Eyes: Conjunctiva/sclera: Conjunctivae normal. Pupils: Pupils are equal, round, and reactive to light. Cardiovascular: Rate and Rhythm: Normal rate and regular rhythm. Heart sounds: Normal heart sounds. Pulmonary: Effort: Pulmonary effort is normal. Breath sounds: Normal breath sounds. Abdominal: Palpations: Abdomen is soft. Comments: Mild epigastric tenderness Musculoskeletal: General: Normal range of motion. Cervical back: Normal range of motion and neck supple. Skin: General: Skin is warm and dry. Findings: No rash. Neurological: Mental Status: She is alert and oriented to person, place, and time. Psychiatric: Behavior: Behavior normal. Procedure: Procedures Re-evaluation: Re-Evaluation Medical Decision Making Amount and/or Complexity of Data Reviewed Labs: ordered. Risk Prescription drug management. ED Course: Clinical Impressions as of 09/05/24 2328 Viral gastroenteritis Chronic pancreatitis, unspecified pancreatitis type (CMS-HCC) . ED Disposition None . Please note that portions of this note were completed with a voice recognition program. Efforts were made to edit the dictations but occasionally words are mis-transcribed. Aydin Wilson MD 09/05/247 * Melba Portillo RN - 09/05/2024 10:20 PM EDT Patient reports chronic pancreatitis. Started vomiting around 2am today. documented in this encounter Plan of Treatment Not on file documented as of this encounter Procedures Procedure Name Priority Date/Time Associated Diagnosis Comments EXTRA TUBES BLUE TOP Routine 09/05/2024 10:27 PM EDT EXTRA TUBES Routine 09/05/2024 10:27 PM EDT CBC WITH AUTO DIFFERENTIAL STAT 09/05/2024 10:27 PM EDT LIPASE STAT 09/05/2024 10:27 PM EDT COMPREHENSIVE METABOLIC PANEL STAT 09/05/2024 10:27 PM EDT documented in this encounter Results * Light Blue Top (09/05/2024 10:27 PM EDT) Extra Tube Auto Resulted 09/06/2024 12:02 AM EDT [facility] Blood Venous blood / Unknown 09/05/2024 10:27 PM EDT 09/05/2024 10:29 PM EDT us Aydin Wilson MD LAB BLOOD ORDERABLES Final Resu lt [facility] [address] [place] [address], [place] * (ABNORMAL) Lipase (09/05/2024 10:27 PM EDT) LIPASE 44(H) 17 - 40 U/L 09/05/2024 10:45 PM EDT [facility] Blood Venous blood / Unknown Venipuncture / Unknown 09/05/2024 10:27 PM EDT 09/05/2024 10:28 PM EDT us Aydin Wilson MD LAB BLOOD ORDERABLES Final Resu lt [facility] [address] [place] [address], [place] * (ABNORMAL) Comprehensive metabolic panel (09/05/2024 10:27 PM EDT) SODIUM 139 134 - 146 mmol/L 09/05/2024 11:03 PM EDT [facility] POTASSIUM 3.6 3.5 - 5.0 mmol/L 09/05/2024 11:03 PM EDT [facility] CHLORIDE 106 98 - 109 mmol/L 09/05/2024 11:03 PM EDT [facility] CARBON DIOXIDE 26 22 - 32 mmol/L 09/05/2024 11:03 PM EDT [facility] ANION GAP 7 5 - 15 mmol/L 09/05/2024 11:03 PM EDT [facility] BLOOD UREA NITROGEN 11 5 - 23 mg/dL 09/05/2024 11:03 PM EDT [facility] CREATININE 0.74 0.40 - 1.00 mg/dL 09/05/2024 11:03 PM EDT [facility] Comment:METHOD TRACEABLE TO IDMS STANDARD GLUCOSE 120(H) 65 - 99 mg/dL 09/05/2024 11:03 PM EDT [facility] CALCIUM 10.2 8.5 - 10.5 mg/dL 09/05/2024 11:03 PM EDT [facility] TOTAL PROTEIN 7.5 6.0 - 8.0 g/dL 09/05/2024 11:03 PM EDT [facility] ALBUMIN 4.2 3.2 - 5.3 g/dL 09/05/2024 11:03 PM EDT [facility] ALKALINE PHOSPHATASE 129 39 - 130 U/L 09/05/2024 11:03 PM EDT [facility] AST 22 <=41 U/L 09/05/2024 11:03 PM EDT [facility] ALT 13 <=31 U/L 09/05/2024 11:03 PM EDT [facility] BILIRUBIN,TOTAL 0.3 0.3 - 1.2 mg/dL 09/05/2024 11:03 PM EDT [facility] EGFR Non-Race Dependent >90 >=60 ml/min/1.7 3sq.m 09/05/2024 11:03 PM EDT [facility] Comment: eGFR not reported due to non-numeric value for Creatinine. Reported eGFR is based on the CKD-EPI 2020 equation that does not use a race coefficient. Blood Venous blood / Unknown Venipuncture / Unknown 09/05/2024 10:27 PM EDT 09/05/2024 10:28 PM EDT us Aydin Wilson MD LAB BLOOD ORDERABLES Final Resu lt [facility] [address] [place] [address], * CBC auto differential (09/05/2024 10:27 PM EDT) WBC 9.7 4 - 11 x10E9/L 09/05/2024 10:36 PM EDT [facility] RBC Count 4.44 3.8 - 5.2 X10E12/L 09/05/2024 10:36 PM EDT [facility] Hemoglobin 15.0 11.7 - 15.5 g/dL 09/05/2024 10:36 PM EDT [facility] Hematocrit 43.1 35 - 47 % 09/05/2024 10:36 PM EDT [facility] MCV 97 80 - 100 fL 09/05/2024 10:36 PM EDT [facility] MCH 33.8 27 - 34 pg 09/05/2024 10:36 PM EDT [facility] MCHC 34.8 32 - 36 g/dL 09/05/2024 10:36 PM EDT [facility] RDW 13.2 11.5 - 15 % 09/05/2024 10:36 PM EDT [facility] Platelet Count 275 150 - 450 X10E9/L 09/05/2024 10:36 PM EDT [facility] MPV 8.0 7 - 12 fL 09/05/2024 10:36 PM EDT [facility] Neutrophils % 53.3 % 09/05/2024 10:36 PM EDT [facility] Lymphocytes % 35.0 % 09/05/2024 10:36 PM EDT [facility] Monocytes % 8.5 % 09/05/2024 10:36 PM EDT [facility] Eosinophils % 2.1 % 09/05/2024 10:36 PM EDT [facility] Basophils % 1.1 % 09/05/2024 10:36 PM EDT [facility] Neutrophils Absolute (A) 5.2 1.5 - 6.6 10*3/uL 09/05/2024 10:36 PM EDT [facility] Lymphocytes Absolute 3.4 1.0 - 3.5 10*3/uL 09/05/2024 10:36 PM EDT [facility] Monocytes Absolute 0.8 0.0 - 0.9 10*3/uL 09/05/2024 10:36 PM EDT [facility] Eosinophils Absolute 0.2 0.0 - 0.4 10*3/uL 09/05/2024 10:36 PM EDT [facility] Basophils Absolute 0.1 0.0 - 0.2 10*3/uL 09/05/2024 10:36 PM EDT [facility] Differential Type AUTOMATED DIFFERENTIAL 09/05/2024 10:36 PM EDT [facility] Blood Venous blood / Unknown Venipuncture / Unknown 09/05/2024 10:27 PM EDT 09/05/2024 10:28 PM EDT us Aydin Wilson MD LAB BLOOD ORDERABLES Final Resu lt [facility] [address] [place] [address], documented in this encounter Visit Diagnoses Diagnosis Viral gastroenteritis- Primary Intestinal infection due to other organism, NEC Chronic pancreatitis, unspecified pancreatitis type ([facility]) documented in this encounter Administered Medications Inactive Administered Medications - up to 3 most recent administrations Medication Order MAR Action Action Date Dose Rate Site famotidine (PF) (PEPCID) injection 20 mg 20 mg, intravenous, Once, On Thu09/05/24 at 2220, For 1 dose, Dilute to total volume of 5 mL with 0.9% sod chl and administer IVP over 2 minutes. Given 09/05/2024 10:32 PM EDT 20 mg HYDROmorphone (PF) (DILAUDID) injection 0.5 mg 0.5 mg, intravenous, Once, On Thu09/05/24 at 2330, For 1 dose, If IV push, administer over over 2 to 3 minutes. Look-alike/sound-alike medication - verify indication for use. Given 09/05/2024 11:36 PM EDT 0.5 mg ondansetron (PF) (ZOFRAN) injection 4 mg 4 mg, intravenous, Once, On Thu09/05/24 at 2220, For 1 dose, Intravenous administration preferred to be given over 2-5 minutes. Given 09/05/2024 10:30 PM EDT 4 mg sodium chloride 0.9 % bolus 1,000 mL, intravenous, at 984 mL/hr, Administer over 61 Minutes, Once, On Thu09/05/24 at 2220, For 1 dose New Bag 09/05/2024 10:30 PM EDT 1,000 mL 984 mL/hr sodium chloride 0.9 % flush 3 mL 3 mL, intravenous, As needed, line care, before and after each intermittent use, Starting on Thu09/05/24 at 2216 documented in this encounter Active and Recently Administered Medications Times are shown in EDT. Scheduled Medication Order 09/03/2024 09/04/2024 09/05/2024 famotidine (PF) (PEPCID) injection 20 mg (COMPLETED) 20 mg, intravenous, Once, On Thu09/05/24 at 2220, For 1 dose, Dilute to total volume of 5 mL with 0.9% sod chl and administer IVP over 2 minutes. 223 (Given - Provid er: Melba Portillo RN) HYDROmorphone (PF) (DILAUDID) injection 0.5 mg (COMPLETED) 0.5 mg, intravenous, Once, On Thu09/05/24 at 2330, For 1 dose, If IV push, administer over over 2 to 3 minutes. Look-alike/sound-alike medication - verify indication for use. 233 (Given - Provid er: Melba Portillo RN) ondansetron (PF) (ZOFRAN) injection 4 mg (COMPLETED) 4 mg, intravenous, Once, On Thu09/05/24 at 2220, For 1 dose, Intravenous administration preferred to be given over 2-5 minutes. 223 (Given - Provid er: Melba Portillo RN) sodium chloride 0.9 % bolus (COMPLETED) 1,000 mL, intravenous, at 984 mL/hr, Administer over 61 Minutes, Once, On Thu09/05/24 at 2220, For 1 dose 223 (New Bag - Prov ider: Melba Portillo RN)233 (Stop Bag - Provider: Melba Portillo RN) PRN Medication Order 09/03/2024 09/04/2024 09/05/2024 sodium chloride 0.9 % flush 3 mL 3 mL, intravenous, As needed, line care, before and after each intermittent use, Starting on Thu09/05/24 at 2216 documented in this encounter Care Teams Organ Grinder Relationship Specialty Start Date End Date [facility], [facility] [address], [place] PCP - General Family Medicine 05/31/24 documented as of this encounter
[2024-09-13 12:38] VITALS: BP 133/83; PULSE 96; TEMP 36.9; O2SAT 98; BMI 22.9
--- OUTSIDE RECORDS SUMMARY | 2024-09-13 12:41 | XMS_ITS | Encounter Summary ---
Author Organization [facility] Address [address] [place] [address] Care Team Providers Care Staff Research Associate Name Role Phone Jemma Joseph MD Unavailable [phone] Elie Nichols MD Primary Care Provider [phone] Pineda Fernandez MD Unavailable [phone] [facility], Other Primary Care Provi mathew Reason for Referral * Radiology (Routine) - Closed Specialty Diagnoses / Procedures Referred By Zia espinal Referred To Contact Diagnoses Alcohol-induced chronic pancreatitis Procedures CASE REQUEST - ENDOSCOPY Pineda Fernandez MD Phone: tel: fax: Referral ID Status Reason Start Date Expiration Date Visits Re quested Visits Authorized [id number] Closed 04/07/2016 05/02/2017 1 1 Reason for Visit * Reason Onset Date Comments Condition Update 03/31/2016 Encounter Details Date Type Department Care Team (Late st Contact Info) Description 03/31/2016 Telephone Gastroenterology and Hepatology [facility] [address] [address] Minoo Parham Condition Update Social History Tobacco Use Types Packs/Day Years Used Date Smoking Tobacco: Every Day Cigarettes 1 32 Smokeless Tobacco: Never Comments:smokes 1/2 pk/day; PCP will not prescribe med to help Alcohol Use Standard Drinks/Week Comments No 0 (1 standard drink = 0.6 oz pur e alcohol) Comments No Sex and Gender Information Value Date Recorded Sex Assigned at Not on file Legal Sex Female 12:08 PM EST Gender Identity Female Sexual Orientation Not on file documented as of this encounter Functional Status * Are you deaf or do you have serious difficulty hearing? Answer Date of Assessment Author No 12/22/2015 1:21 AM Madison Duarte RN * Are you blind or do you have serious difficulty seeing, even when wearing glasses? Answer Date of Assessment Author No 12/22/2015 1:21 AM Madison Duarte RN * Do you have serious difficulty walking or climbing stairs (5 years or older)? Answer Date of Assessment Author No 12/22/2015 1:21 AM Madison Duarte RN * Do you have difficulty dressing or bathing (5 yrs or older)? Answer Date of Assessment Author No 12/22/2015 1:21 AM Madison Duarte RN * Because of a physical, mental, or emotional condition, do you have difficulty doing errands alone such as visiting a doctor's office or shopping (5 yrs or older)? Answer Date of Assessment Author No 12/22/2015 1:21 AM Madison Duarte RN documented as of this encounter Mental Status * Because of a physical, mental, or emotional condition, do you have serious difficulty concentrating, remembering, or making decisions (5 yrs or older)? Answer Entry Date Author No 12/22/2015 1:21 AM Madison Duarte RN documented in this encounter Miscellaneous Notes * Telephone Encounter - Bria Bland RN - 04/08/2016 1:20 PM EST Please schedule pt for consult with Dr. Rios or Dr. Enamorado. Nicole * Telephone Encounter - Pineda Fernandez MD - 04/07/2016 3:11 PM EST Spoke to patient by phone who thinks her symptoms from chronic pancreatitis, specifically pain and nausea, were much improved for 2 months after EUS with celiac plexus block. She is interested in another procedure, which I agree is reasonable. Previously discussed TPIAT candidacy at interest group, and she was felt to be reasonable candidateon initial review. I encouraged her to get an opinion on this from Dr Rios or Kelsea, and she is agreeable to a clinic visit to discuss this further. * Telephone Encounter - Cynthia Cristina RN - 04/07/2016 2:29 PM EST Received transfer call from scheduling. I spoke with pt's ([phone]- Mgady Nolan) who states that pt had a nerve block in her pancreas in mid- January and was told that it can be redone every 90 days if need be. He states that it's wearing off now and she needed to miss work d/t pain again. She is trying to avoid ER d/t does not want morphine given. He also states that they are not comfortable with TPAIT d/t too many complications after transplantpossible and they are asking for Dr Fernandez to call them back directly to discuss further. * Telephone Encounter - Pineda Fernandez MD - 03/31/2016 6:03 PM EST Spoke to patient by phone. She actually has done fairly well over the past two months, but now her symptoms of nausea, pain and vomiting have resumed. Reviewed reasons to come to ED. She ran out of all her medications. Refilled phenergan as this is the only antiemetic that has helped previously, aswell as mirtazapine as this helped with her nausea previously. She is interested in seeing Dr. Rios or Kelsea about TPIAT candidacy, which we will work on arranging. * Telephone Encounter - Philomena Cedillo RN - 03/31/2016 3:04 PM EST Called patient to obtain further information. Patient reports of increased abdominal pain starting on Thursday03/28/16. Has constant pain 8/10 midline of abdomen above umbilicus. Pain sometimes will radiate to right side and lower back. Nothing makes pain better or worse. Denies fever, but has chills intermittently thoughout the day. States has nausea and vomiting, decreased appetite. Cannot keep anything down, had been drinking one can of Ensure daily but recently started vomiting up Ensure 15 to 30 minutes after drinking. Reports of bloating starting today. Has about 5 episodes of watery, almost clear diarrhea daily. States is typical of what happens when has flare up Patient states has not stopped smoking Advised patient to go to ED if pain becomes to severe, if develops fever, vomiting blood. Patient verbalized understanding. * Telephone Encounter - Minoomoses Parham - 03/31/2016 1:20 PM EST PROVIDER: Dr. Fernandez SUBJECT OF CALL: Patient's calling in reporting patient has been having a lot of abdominal pain again and has also had some vomiting. Her appointment with Dr. Fernandez is not until June 09 available. They want to know if Dr. Fernandez thinks she should have another procedure or what his suggestions would be for her in the mean time. is requesting nurse/md call Bernice goldman t [phone]. If she doesn't answer please leave a message. documented in this encounter Plan of Treatment Not on file documented as of this encounter Visit Diagnoses Diagnosis Alcohol-induced chronic pancreatitis- Primary Chronic pancreatitis documented in this encounter Additional Health Concerns Infection Onset Date Last Indicated Resolved Time COVID-19 Suspected 11/28/2019 11/28/2019 0 4:32 AM EDT documented as of this encounter Care Teams Staff Research Associate Relationship Specialty Start Date End Date Elie Nichols MD [address] [place] [address] PCP - General Internal Medicine 12/24/15 11/27/19 Pineda Fernandez MD [address] [place] [address] PCP - Referring 1 Gastroenterology 09/25/17 [facility], Other [address] [place] [address] PCP - General 11/28/19 Jemma Joseph MD Family Medicine 12/11/14 09/24/17 documented as of this encounter
--- OUTSIDE RECORDS SUMMARY | 2024-09-13 12:41 | XMS_ITS | Encounter Summary ---
Author Organization [facility] Address [id number] [address] [place] [address] Care Team Providers Care Laundry Laborer Name Role Phone Services, [facility] Primary Care Provider Encounter Details Date Type Department Care Team (Late st Contact Info) Description 05/22/2023 Orders Only [facility] [address] [place] [phone] External, Scanning Provider Social History Tobacco Use Types Packs/Day Years [...] got money to buy more. Never True 04/11/2023 Within the past 12 months th e food we bought just didn't last and we didn't have money to get more. Never True 04/11/2023 Purpose - Life Answer Date Recorded Purpose and direction in life Unknown Comments No Sex and Gender Information Value Date Recorded Sex Assigned at Not on file Legal Sex Female 12:09 PM EDT Gender Identity Not on file Sexual Orientation Not on file documented as of this encounter Plan of Treatment Not on file documented as of this encounter Procedures Procedure Name Priority Date/Time Associated Diagnosis Comments MULTIPLE LABS Routine 11/19/2022 10:38 AM EDT XR CHEST 1 VW Routine 11/19/2022 10:37 AM EDT ECG 12-LEAD Routine 11/19/2022 10:28 AM EDT MULTIPLE LABS Routine 10/14/2022 10:40 AM EDT MULTIPLE LABS Routine 08/27/2022 10:41 AM EDT XR ABDOMEN AP AND LATERAL Routine 08/27/2022 10:36 AM EDT ECG 12-LEAD Routine 08/27/2022 10:31 AM EDT ECG 12-LEAD Routine 08/12/2022 10:30 AM EDT documented in this encounter Results * Multiple labs (11/19/2022 10:38 AM EDT) us Scanning Provider External IA IMAGING Final Result Performing Organization Address [facility] Phone Number MANUALLY TRANSCRIBED RESULTS * X-ray chest 1 view (11/19/2022 10:37 AM EDT) Anatomical Region Laterality Modality Body, Chest N/A Computed Radiogr aphy us Scanning Provider External IMG DIAGNOSTIC IMAGIN G ORDERABLES Final Result * ECG 12 lead (11/19/2022 10:28 AM EDT) us Scanning Provider External ECG ORDERABLES Final Result Performing Organization Address [facility] Phone Number MANUALLY TRANSCRIBED RESULTS * Multiple labs (10/14/2022 10:40 AM EDT) us Scanning Provider External IA IMAGING Final Result Performing Organization Address [facility] de Phone Number MANUALLY TRANSCRIBED RESULTS * Multiple labs (08/27/2022 10:41 AM EDT) us Scanning Provider External IA IMAGING Final Result Performing Organization Address [facility] de Phone Number MANUALLY TRANSCRIBED RESULTS * X-ray abdomen ap and lateral (08/27/2022 10:36 AM EDT) Anatomical Region Laterality Modality Body, Abdomen N/A Computed Radiogr aphy us Scanning Provider External IMG DIAGNOSTIC IMAGIN G ORDERABLES Final Result * ECG 12 lead (08/27/2022 10:31 AM EDT) us Scanning Provider External ECG ORDERABLES Final Result MANUALLY TRANSCRIBED RESULTS * ECG 12 lead (08/12/2022 10:30 AM EDT) us Scanning Provider External ECG ORDERABLES Final Result Performing Organization Address City/[facility] Co de Phone Number MANUALLY TRANSCRIBED RESULTS documented in this encounter Visit Diagnoses Not on filedocumented in this encounter Care Teams Laundry Laborer Relationship Specialty Start Date End Date Services, [facility] [address] [place], [place] PCP - General Family Medicine 05/31/24 documented as of this encounter
--- OUTSIDE RECORDS SUMMARY | 2024-09-13 12:41 | XMS_ITS | Clinical Summary ---
Author Organization [employer] Address [id number] [address] [place] [address] Care Team Providers Care Cadd Instructor Name Role Phone Services, [facility] Primary Care Provider Allergies Active Allergy Reactions Criticality Noted Date Comments Prochlorperazine Anaphylaxis High 03/18/2024 Enoxaparin Itching,Rash Medium 08/23/2019 Fentanyl Hives High 09/12/2020 Haloperidol Hives 10/09/2017 Ibuprofen Anaphylaxis High 10/09/2017 Throat swelling Metoclopramide Anxiety Low 06/30/2016 Morphine Hives 10/09/2017 Penicillins Anaphylaxis High 10/09/2017 Throat swelling, shortness of breath Ketorolac Hives 06/12/2020 Tramadol Hives 10/09/2017 Medications amitriptyline (ELAVIL) 10 mg tablet Take 25 mg by mouth. 12/01/19 20 Active amitriptyline (ELAVIL) 25 mg tablet Take 1 tablet (25 mg total) by mouth nightly. 15 tablet 15 08/27/19 22 Active dicyclomine (BENTYL) 20 mg tablet Take 1 tablet (20 mg total) by mouth every 6 (six) hours. 20 tablet 08/27/19 22 Active wedlwo-vfazfdey-gc ylase (CREON) 12,000-38,000 -60,000 unit capsule,delayed release(DR/EC) capsule Take 1 capsule (12,000 units of lipase total) by mouth in the morning and 1 capsule (12,000 units of lipase total) at noon and 1 capsule (12,000 units of lipase total) in the evening. Take with meals. Active dicyclomine (BENTYL) 20 mg tablet Take 1 tablet (20 mg total) by mouth in the morning and 1 tablet (20 mg total) before bedtime. 20 tablet 03/27/19 24 Active famotidine (PEPCID) 20 mg tablet Take 1 tablet (20 mg total) by mouth in the morning and 1 tablet (20 mg total) before bedtime. 30 tablet 12/29/19 24 Active ondansetron ODT (ZOFRAN ODT) 4 mg disintegrating tablet Dissolve 1 tablet (4 mg total) on tongue every 8 (eight) hours as needed for nausea for up to 10 doses. 10 tablet 12/29/19 24 Active ondansetron ODT (ZOFRAN ODT) 4 mg disintegrating tablet Dissolve 1 tablet (4 mg total) on tongue every 8 (eight) hours as needed for nausea for up to 10 doses. 10 tablet 06/16/19 25 Active naloxone (NARCAN) 4 mg/actuation spray,non-aerosol nasal spray Administer 1 spray (4 mg total) into alternating nostrils as needed for opioid reversal. 06/16/19 25 Active promethazine (PHENERGAN) 25 mg tablet Take 1 tablet (25 mg total) by mouth every 6 (six) hours as needed for nausea or vomiting. 15 tablet 06/28/19 25 Active Active Problems No known active problems Encounters Date Type Department Care Team Description 09/05/2024 10:15 PM EDT - 09/05/2024 11:46 PM EDT Emergency [facility] - Emergency [address] [place] [address] Aydin Wilson MD Viral gastroenteritis (Primary Dx); Chronic pancreatitis, unspecified pancreatitis type (CMS-HCC) Discharge Disposition: Home 08/10/2024 6:40 PM EDT - 08/10/2024 8:12 PM EDT Emergency [facility] Emergency [address] [place] [address] Aydin Wilson MD Chronic pancreatitis, unspecified pancreatitis type (CMS-HCC) (Primary Dx); Chronic abdominal pain Discharge Disposition: Home 07/21/2024 Travel 07/20/2024 11:55 PM EDT - 07/21/2024 1:03 AM EDT Emergency [facility] - Emergency [address] [place] [address] Parish Grande MD Dental infection (Primary Dx); Pain, dental Discharge Disposition: Home 06/27/2024 1:03 PM EDT - 06/27/2024 3:40 PM EDT Emergency [facility] - Emergency [address] [place] [address] Aydin Wilson MD Chronic abdominal pain (Primary Dx) Discharge Disposition: Home 06/15/2024 5:20 PM EDT - 06/15/2024 8:28 PM EDT Emergency [facility] Emergency [address] [place] [address] Syd Rodriguez MD Alcohol-induced chronic pancreatitis (CMS-HCC) (Primary Dx) Discharge Disposition: Home 06/15/2024 Travel from Last 3 Months Family History Medical History Relation Name Comments Alzheimer's disease Maternal Grandfather Cancer Maternal Grandfather Cancer Maternal Grandmother Breast cancer Mother Relation Name Status Comments Maternal Grandfather Maternal Grandmother Mother Social History Tobacco Use Types Packs/Day Years Used Date Smoking Tobacco: Every Day Cigarettes 0.3 20 Started: 10/30/2000; Last attempted to quit: 10/30/2020 Smokeless Tobacco: Never Tobacco Cessation:Ready to Q uit: Not Asked; Counseling Given: Not Answered Alcohol Use Standard Drinks/Week Comments Not Currently [...] on file Sexual Orientation Not on file Last Filed Vital Signs Vital Sign Reading [...] Mass Index 23.78 09/05/2024 10:18 PM EDT Plan of Treatment Health Maintenance Due Date Last Done Comments Tobacco Counseling 1969 Depression Screening 1981 DTaP,Tdap and Td Vaccines (1 - Tdap) 1988 Zoster (Shingles) Vaccine (1 of 2) 06/21/2019 COVID-19 Vaccine (3 - season) 2023, 08/28/2020 Influenza Vaccine 11/07/2024 12/23/2015, 12/15/2014 Tobacco Screening 07/21/2025 07/21/2024 Adult BMI Screening 09/05/2025 09/05/2024 Pap Smear Discontinued 12/11/2011 Medical Devices Not on file Procedures Procedure Name Priority Date/Time Associated Diagnosis Comments EXTRA TUBES BLUE TOP Routine 09/05/2024 10:27 PM EDT EXTRA TUBES Routine 09/05/2024 10:27 PM EDT LIPASE STAT 09/05/2024 10:27 PM EDT COMPREHENSIVE METABOLIC PANEL STAT 09/05/2024 10:27 PM EDT CBC WITH AUTO DIFFERENTIAL STAT 09/05/2024 10:27 PM EDT EXTRA TUBES BLUE TOP Routine 08/10/2024 5:56 PM EDT EXTRA TUBES Routine 08/10/2024 5:56 PM EDT LIPASE STAT 08/10/2024 5:52 PM EDT COMPREHENSIVE METABOLIC PANEL STAT 08/10/2024 5:52 PM EDT CBC WITH AUTO DIFFERENTIAL STAT 08/10/2024 5:52 PM EDT LIPASE STAT 06/27/2024 1:58 PM EDT COMPREHENSIVE METABOLIC PANEL STAT 06/27/2024 1:58 PM EDT CBC WITH AUTO DIFFERENTIAL STAT 06/27/2024 1:58 PM EDT MAGNESIUM STAT 06/15/2024 6:00 PM EDT LACTATE W/ REFLEX STAT 06/15/2024 6:0 0 PM EDT LIPASE STAT 06/15/2024 6:00 PM EDT ETHANOL STAT 06/15/2024 6:00 PM EDT LIVER PANEL STAT 06/15/2024 6:00 PM EDT BASIC METABOLIC PANEL STAT 06/15/2024 6:00 PM EDT CBC WITH AUTO DIFFERENTIAL STAT 06/15/2024 6:00 PM EDT from Last 3 Months Results * Light Blue Top (09/05/2024 10:27 PM EDT) Only the most recent of2 resultswithin the time period is included. Extra Tube Auto Resulted 09/06/2024 12:02 AM EDT [facility] Blood Venous blood / Unknown 09/05/2024 10:27 PM EDT 09/05/2024 10:29 PM EDT us Aydin Wilson MD LAB BLOOD ORDERABLES Final Resu lt [facility] [address] [facility] [place] [address], [place] * CBC auto differential (09/05/2024 10:27 PM EDT) Only the most recent of4 resultswithin the time period is included. WBC 9.7 4 - 11 x10E9/L 09/05/2024 10:36 PM EDT [facility] RBC Count 4.44 3.8 - 5.2 X10E12/L 09/05/2024 10:36 PM EDT [facility] Hemoglobin 15.0 11.7 - 15.5 g/dL 09/05/2024 10:36 PM EDT [facility] Hematocrit 43.1 35 - 47 % 09/05/2024 10:36 PM EDT [facility] MCV 97 80 - 100 fL 09/05/2024 10:36 PM EDT [facility] MCH 33.8 27 - 34 pg 09/05/2024 10:36 PM EDT [facility] MCHC 34.8 32 - 36 g/dL 09/05/2024 10:36 PM EDT [facility] RDW 13.2 11.5 - 15 % 09/05/2024 10:36 PM EDT [facility] Platelet Count 275 150 - 450 X10E9/L 09/05/2024 10:36 PM EDT [facility] MPV 8.0 7 - 12 fL 09/05/2024 10:36 PM EDT [facility] Neutrophils % 53.3 % 09/05/2024 10:36 PM EDT [facility] Lymphocytes % 35.0 % 09/05/2024 10:36 PM EDT [facility] Monocytes % 8.5 % 09/05/2024 10:36 PM EDT [facility] Eosinophils % 2.1 % 09/05/2024 10:36 PM EDT [facility] Basophils % 1.1 % 09/05/2024 10:36 PM EDT [facility] Neutrophils Absolute (A) 5.2 1.5 - 6.6 10*3/uL 09/05/2024 10:36 PM EDT [facility] Lymphocytes Absolute 3.4 1.0 - 3.5 10*3/uL 09/05/2024 10:36 PM EDT [facility] Monocytes Absolute 0.8 0.0 - 0.9 10*3/uL 09/05/2024 10:36 PM EDT [facility] Eosinophils Absolute 0.2 0.0 - 0.4 10*3/uL 09/05/2024 10:36 PM EDT [facility] Basophils Absolute 0.1 0.0 - 0.2 10*3/uL 09/05/2024 10:36 PM EDT [facility] Differential Type AUTOMATED DIFFERENTIAL 09/05/2024 10:36 PM EDT [facility] Blood Venous blood / Unknown Venipuncture / Unknown 09/05/2024 10:27 PM EDT 09/05/2024 10:28 PM EDT us Aydin Wilson MD LAB BLOOD ORDERABLES Final Resu lt [facility] [address] [facility] [place] [address], [place] * (ABNORMAL) Lipase (09/05/2024 10:27 PM EDT) Only the most recent of4 resultswithin the time period is included. LIPASE 44(H) 17 - 40 U/L 09/05/2024 10:45 PM EDT [facility] Blood Venous blood / Unknown Venipuncture / Unknown 09/05/2024 10:27 PM EDT 09/05/2024 10:28 PM EDT us Aydin Wilson MD LAB BLOOD ORDERABLES Final Resu lt [facility] [address] [place] [address], * (ABNORMAL) Comprehensive metabolic panel (09/05/2024 10:27 PM EDT) Only the most recent of3 resultswithin the time period is included. SODIUM 139 134 - 146 mmol/L 09/05/2024 11:03 PM EDT [facility] POTASSIUM 3.6 3.5 - 5.0 mmol/L 09/05/2024 11:03 PM EDT [facility] CHLORIDE 106 98 - 109 mmol/L 09/05/2024 11:03 PM EDT [facility] CARBON DIOXIDE 26 22 - 32 mmol/L 09/05/2024 11:03 PM EDT [facility] ANION GAP 7 5 - 15 mmol/L 09/05/2024 11:03 PM EDT [facility] BLOOD UREA NITROGEN 11 5 - 23 mg/dL 09/05/2024 11:03 PM EDT [facility] CREATININE 0.74 0.40 - 1.00 mg/dL 09/05/2024 11:03 PM EDT [facility] Comment:METHOD TRACEABLE TO IDMS STANDARD GLUCOSE 120(H) 65 - 99 mg/dL 09/05/2024 11:03 PM EDT [facility] CALCIUM 10.2 8.5 - 10.5 mg/dL 09/05/2024 11:03 PM EDT [facility] TOTAL PROTEIN 7.5 6.0 - 8.0 g/dL 09/05/2024 11:03 PM EDT [facility] ALBUMIN 4.2 3.2 - 5.3 g/dL 09/05/2024 11:03 PM EDT [facility] ALKALINE PHOSPHATASE 129 39 - 130 U/L 09/05/2024 11:03 PM EDT [facility] AST 22 <=41 U/L 09/05/2024 11:03 PM EDT [facility] ALT 13 <=31 U/L 09/05/2024 11:03 PM EDT [facility] BILIRUBIN,TOTAL 0.3 0.3 - 1.2 mg/dL 09/05/2024 11:03 PM EDT [facility] EGFR Non-Race Dependent >90 >=60 ml/min/1.7 3sq.m 09/05/2024 11:03 PM EDT [facility] Comment: eGFR not reported due to non-numeric value for Creatinine. Reported eGFR is based on the CKD-EPI 2020 equation that does not use a race coefficient. Blood Venous blood / Unknown Venipuncture / Unknown 09/05/2024 10:27 PM EDT 09/05/2024 10:28 PM EDT us Aydin Wilson MD LAB BLOOD ORDERABLES Final Resu lt Performing Organization Address City/[facility]/ZIP Co de Phone Number [address] [address], [place] * Lactate w/ Reflex (06/15/2024 6:00 PM EDT) Lactate w/ Reflex 1.1 0.4 - 2.0 mmol/L 06/15/2024 6:25 PM EDT [facility] Comment: Result did not trigger repeat Lactate, re-order if needed. Blood (PLASMA) 06/15/2024 6: 00 PM EDT 06/15/2024 6:04 PM EDT us Syd Rodriguez MD LAB BLOOD ORDERABLES Nichol l Result Performing Organization Address [facility]/ZIP Co de Phone Number [address], [place] [address] * Magnesium (06/15/2024 6:00 PM EDT) Magnesium 2.1 1.8 - 2.6 mg/dL 06/15/2024 6:28 [facility] Blood (PLASMA) 06/15/2024 6: 00 PM EDT 06/15/2024 6:04 PM EDT Syd Rodriguez MD LAB BLOOD ORDERABLES Nichol l Result Performing Organization Address City/[facility]/ZIP Co de Phone Number [address] [address] * Ethanol (06/15/2024 6:00 PM EDT) Pathologist [facility] Ethanol Lvl <0.01 0.00 - 0.08 g/dL 06/15/2024 6:28 PM EDT [facility] Comment: This report is intended for use in clinical monitoring or management of patients. Blood (PLASMA) 06/15/2024 6: 00 PM EDT 06/15/2024 6:04 PM EDT Syd Rodriguez MD LAB BLOOD ORDERABLES Nichol l Result Performing Organization Address City/[facility]/ZIP Co de Phone Number [address] [address] * Liver panel (06/15/2024 6:00 PM EDT) Alkaline phosphatase 106 39 - 130 U/L 06/15/2024 6:28 PM EDT [facility] AST 18 0 - 41 U/L 06/15/2024 6:28 PM EDT [facility] ALT 12 0 - 31 U/L 06/15/2024 6:28 PM EDT [facility] Total Bilirubin 0.3 0.3 - 1.2 mg/dL 06/15/2024 6:28 PM EDT [facility] Bilirubin, direct <0.1 0.0 - 0.4 mg/dL 06/15/2024 6:28 PM EDT [facility] Albumin 4.2 3.2 - 5.3 g/dL 06/15/2024 6:28 PM EDT [facility] Total Protein 7.0 6.0 - 8.0 g/dL 06/15/2024 6:28 PM [facility] Blood (PLASMA) 06/15/2024 6: 00 PM EDT 06/15/2024 6:04 PM EDT us Syd Rodriguez MD LAB BLOOD ORDERABLES Nichol bee Result [facility] [address] [place] [address] * (ABNORMAL) Basic Metabolic Panel (06/15/2024 6:00 PM EDT) Sodium 137 134 - 146 mmol/L 06/15/2024 6:21 PM [facility] Potassium, Bld 3.3(L) 3.5 - 5.0 mmol/L 06/15/2024 6:21 PM [facility] Chloride 105 98 - 109 mmol/L 06/15/2024 6:21 PM [facility] CO2 24 22 - 32 mmol/L 06/15/2024 6:21 PM [facility] Anion gap 8 5 - 15 mmol/L 06/15/2024 6:21 PM [facility] BUN 9 5 - 23 mg/dL 06/15/2024 6:28 PM [facility] Creatinine 0.78 0.40 - 1.00 mg/dL 06/15/2024 6:28 PM [facility] Comment:METHOD TRACEABLE TO IDMS STANDARD Glucose 97 65 - 99 mg/dL 06/15/2024 6:21 PM [facility] Calcium 9.7 8.5 - 10.5 mg/dL 06/15/2024 6:21 PM [facility] eGFR (CKD-EPI)non-ra ce dependent >90 >59 ml/min/1.7 3sq.m 06/15/2024 6:28 PM [facility] Comment: Reported eGFR is based on the CKD-EPI 2020 equation that does not use a race coefficient. Blood (PLASMA) 06/15/2024 6: 00 PM EDT 06/15/2024 6:04 PM EDT us Syd Rodriguez MD LAB BLOOD ORDERABLES Nichol gamboa Result [facility] [address] [facility] [place] [address] from Last 3 Months Insurance [employer] [facility] [facility] MEDICA[employer] Care Teams Cadd Instructor Relationship Specialty Start Date End Date Services, [facility] [address], [place] PCP - General Family Medicine 05/31/24
--- OUTSIDE RECORDS SUMMARY | 2024-09-13 12:41 | XMS_ITS | Encounter Summary ---
Author Organization [facility] enter Address [address] [place] [address] Care Team Providers Care Manager Business Systems Name Role Phone Jemma Joseph MD Unavailable [phone] Elie Nichols MD Primary Care Provider [phone] Pineda Troy MD Unavailable [facility], Other Primary Care Provi mathew Reason for Visit * Reason Onset Date Comments Information Update 12/24/2015 Encounter Details Date Type Department Care Team (Late st Contact Info) Description 12/24/[address] [facility] [address] [address] Irasema Bruce Information Update Social History Tobacco Use Types Packs/Day Years Used Date Smoking Tobacco: Every Day Cigarettes 0.4 25 Smokeless Tobacco: Never Comments:has cut back from 1 2 to 8 /day-will see PCP for help Alcohol Use Standard Drinks/Week Comments No [...] of Assessment Author No 12/22/2015 1:21 AM EDT [place] Kemp, RN * Are you blind or do you have serious difficulty seeing, even when wearing glasses? Answer Date of Assessment Author No 12/22/2015 1:21 AM EDT [place] Kemp RN * Do you have serious difficulty walking or climbing stairs (5 years or older)? Answer Date of Assessment Author No 12/22/2015 1:21 AM EDT [place] Kemp RN * Do you have difficulty dressing or bathing (5 yrs or older)? Answer Date of Assessment Author No 12/22/2015 1:21 AM EDT [place] Kemp RN * Because of a physical, mental, or emotional condition, do you have difficulty doing errands alone such as visiting a doctor's office or shopping (5 yrs or older)? Answer Date of Assessment Author No 12/22/2015 1:21 AM EDT [place] Kemp RN documented as of this encounter Mental Status * Because of a physical, mental, or emotional condition, do you have serious difficulty concentrating, remembering, or making decisions (5 yrs or older)? Answer Entry Date Author No 12/22/2015 1:21 AM EDT [place] Kemp RN documented in this encounter Miscellaneous Notes * Telephone Encounter - Bria Bland RN - 12/24/2015 9:39 AM EDT FYI, please review hospital notes. Nicole * Telephone Encounter - Irasema Bruce - 12/24/2015 9:29 AM EDT Pt of Dr. Troy Pt is wanting to let Dr. Troy know she is currently inpatient @ . Pt cb # [phone] documented in this encounter Plan of Treatment Not on file documented as of this encounter Visit Diagnoses Not on filedocumented in this encounter Additional Health Concerns Infection Onset Date Last Indicated Resolved Time COVID-19 Suspected 11/28/2019 11/28/2019 0 4:32 AM EDT documented as of this encounter Care Teams Manager Business Systems Relationship Specialty Start Date End Date Elie Nichols MD [address] [place] [address] PCP - General Internal Medicine 12/24/15 11/27/19 Pineda Troy MD [address] [place] [address] PCP - Referring 1 Gastroenterology 09/25/17 [facility], Other [address] [place] [address] PCP - General 11/28/19 Jemma Joseph MD Family Medicine 12/11/14 09/24/17 documented as of this encounter
--- OUTSIDE RECORDS SUMMARY | 2024-09-13 12:41 | XMS_ITS | Encounter Summary ---
Author Organization [employer] Address [id number] [address] [place] [address] Care Team Providers Care Production Maintenance Technician Name Role Phone Services, [facility] Primary Care Provider Encounter Details Date Type Department Care Team (Late st Contact Info) Description 05/29/2023 Telephone [facility] [address] [place] [address] Orlando Al MD [address] [place], [place] [id number] Social History Tobacco Use Types Packs/Day Years [...] on file documented as of this encounter Miscellaneous Notes * Telephone Encounter - Nat Adams 05/29/2023 9:50 AM EDT This is notification that we have received a referral for the patient. Please reach out to schedulenew patient appointment in your office. Pt recently no showed to appt 05/24 w [facility] in your office. Please check the referral tab in appt desk for details and to make sure to assign referral or schedule off of it. Thank you. * Telephone Encounter - Fany Salas - 05/29/2023 9:50 AM EDT 05/28 attempted to reach out to patient to r/s no show appt from 05/24. VM full, unable to leave message documented in this encounter Plan of Treatment Not on file documented as of this encounter Visit Diagnoses Not on filedocumented in this encounter Care Teams Production Maintenance Technician Relationship Specialty Start Date End Date [facility], [facility] [address] [place], [place] PCP - General Family Medicine 05/31/24 documented as of this encounter
--- OUTSIDE RECORDS SUMMARY | 2024-09-13 12:41 | XMS_ITS | Encounter Summary ---
Author Organization [facility] Address [id number] [address] [place] [address] Care Team Providers Care Cloth Classer Name Role Phone Services, [facility] Primary Care Provider Encounter Details Date Type Department Care Team (Late st Contact Info) Description 11/20/2020 Orders Only [facility] [address] [place] [address] [address] Yecenia Overton, TIE UP WORKER-[employer] PROGRAMS DIRECTOR [address] LEFT PM 09/05/24 [place] [address] Social History Tobacco Use Types Packs/Day Years Used Date Smoking Tobacco: Former Cigarettes 0.3 20 0 10/30/2000 - 10/30/2020 Smokeless Tobacco: Never Alcohol Use Standard Drinks/Week Comments Not Currently 0 (1 standard drink = 0.6 oz pur e alcohol) Childcare Answer Date Recorded Childcare Unknown 08/11/2018 Employment Answer Date Recorded Employment Unknown 08/11/2018 Purpose - Life Answer Date Recorded Purpose and direction in life Unknown Comments No Sex and Gender Information Value Date Recorded Sex Assigned at Not on file Legal Sex Female 12:09 PM EDT Gender Identity Not on file Sexual Orientation Not on file COVID-19 Exposure Response Date Recorded In the last month, have you been in contact with someone who was confirmed or suspected to have Coronavirus / COVID-19? No / Unsure 11/09/2020 1:14 PM EDT documented as of this encounter Plan of Treatment Not on file documented as of this encounter Visit Diagnoses Not on filedocumented in this encounter Care Teams Cloth Classer Relationship Specialty Start Date End Date Services, [facility] [address] [place], [place] PCP - General Family Medicine 05/31/24 documented as of this encounter
--- OUTSIDE RECORDS SUMMARY | 2024-09-13 12:41 | XMS_ITS | Clinical Summary ---
Author Organization [facility] Local Plant [facility] Address [address] [place] [id number] Care Team Providers Care Donor Services Team Leader Name Role Phone Pineda Troy MD Unavailable [phone] [facility]ly [facility], Other Primary Care Provi mathew Allergies Active Allergy Reactions Criticality Noted Date Comments Fentanyl Hives High 09/12/2020 Haloperidol 06/02/2015 Panic attack Ibuprofen Hives,Swelling 10/30/2012 Morphine Hives Medium 07/15/2017 Penicillins Swelling 10/30/2012 Metoclopramide Anxiety 07/19/2016 Ketorolac Tromethamine Hives,Itching High 12/16/2021 Tramadol Hives Medium 10/23/2014 Medications Ergocalciferol 1.25 MG (53994 UT) capsule Take 1 capsule by mouth once a week. 8 capsule 05/11/2023 Active Pancreatic enzymes (Creon) [address] Particles capsule Take 3 capsules by mouth 2 times daily with meals. 180 capsule 11 12/23/2023 Active Active Problems Problem Noted Date Diagnosed Date Encounter for screening colonoscopy 11/28/2019 Overview (11/28/2019): Added automatically from request for surgery [id number] Alcohol-induced chronic pancreatitis 11/28/2019 Overview (11/28/2019): Added automatically from request for surgery [id number] Acute pancreatitis 09/25/2017 Pancreatitis 09/24/2017 Pancreatitis, chronic 12/22/2015 Depression 07/06/2015 Idiopathic chronic pancreatitis 06/28/2015 Chronic abdominal pain 06/21/2015 Non-intractable cyclical vomiting with nausea Abdominal pain 06/21/2015 Epigastric pain 10/23/2014 H/O alcohol abuse 10/23/2014 Tobacco use 10/23/2014 Resolved Problems Problem Noted Date Diagnosed Date Resolved Date Baclofen pump failure 04/23/20162016 Encounter for gastrojejunal (GJ) tube placement 07/06/2015 06/09/2016 Diarrhea 06/30/2015 04/24/2016 PEG tube malfunction 06/26/2015 016 Neutrophilic leukocytosis 06/25/2015 Malfunction of percutaneous endoscopic gastrostomy (PEG) tube 06/25/2015 06/09/2016 Nausea 2015 06/26/2015 Intractable vomiting with nausea 06/11/2015 06/09/2016 Pancreatitis 06/05/2015 06/09/2016 Chronic pancreatitis 10/23/2014 016 Immunizations Immunization Administration Dates Next Due Influenza Vaccine 0.5ml 12/15/2014 influenza, injectable, quadrivalent 12/23/2015 Family History Medical History Relation Name Comments Breast Cancer Mother Colorectal Cancer Neg Hx GI Disease Neg Hx Relation Name Status Comments Father Alive Mother Alive Social History Tobacco Use Types Packs/Day Years Used Date Smoking Tobacco: Every Day Cigarettes 1 32 Smokeless Tobacco: Never Tobacco Cessation:Ready to Q uit: Not Asked; Counseling Given: Not Answered Alcohol Use Standard Drinks/Week Comments No 0 (1 standard drink = 0.6 oz pur e alcohol) been sober for 9 years Comments No Sex and Gender Information Value Date Recorded Sex Assigned at Not on file Legal Sex Female 12:08 PM EST Gender Identity Female Sexual Orientation Not on file Last Filed Vital Signs Vital Sign Reading Time Taken Comments Blood Pressure 120/63 01/19/2024 11:30 AM EST Pulse 73 01/19/2024 11:30 AM EST Temperature 36.7 C (98 F) 01/19/2024 9:54 AM EST Respiratory Rate 18 01/19/2024 11:3 0 AM EST Oxygen Saturation 99% 01/19/2024 11: 30 AM EST Inhaled Oxygen Concentration - - Weight 52.1 kg (114 lb 12.8 oz) 05/11/2023 9:01 AM EST Height 157.5 cm (5' 2 ) 09/08/2023 6:43 AM EDT Body Mass Index 21 05/11/2023 9:01 AM EST Plan of Treatment Health Maintenance Due Date Last Done Comments HEPATITIS C VIRUS SCREENING 1969 TETANUS 1969 HIV SCREENING DISCUSSION 1984 HEP B VACCINE (1 of 3 - 19+ 3-dose series) 1988 PNEUMOCOCCAL VACCINE SERIES (1 of 2 - PCV) 1988 TDAP (ADULT) 1988 CERVICAL CANCER SCREENING DISCUSSION 1990 MAMMOGRAM SCREENING DISCUSSION 01/01/2013 01/02/2012 COLORECTAL CANCER SCREENING DISCUSSION 2014 LUNG CANCER SCREENING 06/21/2019 ZOSTER (SHINGLES) VACCINE (1 of 2) 06/21/2019 LIPID SCREENING 09/25/2022 09/25/2017 COVID-19 VACCINE ( season) 2023, 08/28/2020 INFLUENZA VACCINE (Season Ended) 2024 12/23/19 16, 12/15/2014 Procedures Procedure Name Priority Date/Time Associated Diagnosis Comments LIPID PANEL W CALCULATED LDL Routine 09/25/2017 2:21 AM EDT from Last 3 Months or Most Recently Relevant to Health Maintenance Results * (ABNORMAL) LIPID PANEL W CALCULATED LDL (09/25/2017 2:21 AM EDT) CHOLESTEROL 214(H) <200 mg/dL [facility] Comment: [<200 mg/dL: Desirable] [200-239 mg/dL: Borderline High] [>239 mg/dL: High] TRIGLYCERIDES-TR IGE 352(H) <150 mg/dL [facility] Comment: [<150 mg/dL: Desirable] [150-199 mg/dL: Borderline] [200-499 mg/dL: High] [>500 mg/dL: Very High] HDL CHOLESTEROL 35(L) >40.0 mg/dL [facility], [facility] Comment: [<40 mg/dL: Low (High Risk)] [>59 mg/dL: High (Low Risk)] LDL CHOLESTEROL, CALCULATED 109(H) 0 - 99 mg/dL [facility] Comment: [<100 mg/dL: Optimal] [100-129 mg/dL: Near Optimal] [130-159 mg/dL: Borderline High] [160-189 mg/dL: High] [>189 mg/dL: Very High] CHOLESTEROL, TOTAL/HDL 6.1(H) <4.5 [facility], [facility] Comment:[<4.5: Low risk] NON-HDL CHOLESTEROL (CHOL-HDL) 179(H) <130 mg/dL [facility] 09/25/2017 2:21 AM EDT 09/25/2017 4:12 AM EDT us Mabel Kam MD CHEMISTRY ORDERABLES Final Result [facility] [address] [place] [address] from Last 3 Months or Most Recently Relevant to Health Maintenance [facility] Advance Directives For more information, please contact: [phone] (7:30 AM - 6PM [facility], Thursday-Thursday) * Full Code (Latest Code Status on File) Date Activated Date Inactivated Comments 09/24/2017 10:30 PM * Full Code Date Activated Date Inactivated Comments 04/23/2016 5:03 PM 04/24/2016 2:27 PM * Full Code Date Activated Date Inactivated Comments 12/22/2015 1:00 AM 12/26/2015 8:40 PM * Full Code Date Activated Date Inactivated Comments 07/06/2015 8:46 AM 07/09/2015 6:16 PM * Full Code Date Activated Date Inactivated Comments 06/24/2015 9:16 PM 07/01/2015 5:31 PM Care Teams Donor Services Team Leader Relationship Specialty Start Date End Date Pineda Troy MD PCP - Referring 1 Gastroenterology 09/25/17 [facility], [facility] [address] [place] [address] PCP - General 11/28/19
--- OUTSIDE RECORDS SUMMARY | 2024-09-13 12:41 | XMS_ITS | Encounter Summary ---
Author Organization [facility] Address [address] [place] [address] Care Team Providers Care Local Sales Associate Name Role Phone Pineda Troy MD Unavailable [phone] [facility], Other Primary Care Provi mathew Reason for Visit * Reason Onset Date Comments Other 03/27/2020 Encounter Details Date Type Department Care Team (Late st Contact Info) Description 03/27/2020 Telephone Gastroenterology and Hepatology [facility] [address] [place] [address] Maggie Abreu Other Social History Tobacco Use Types Packs/Day Years Used Date Smoking Tobacco: Every Day Cigarettes 1 32 Smokeless Tobacco: Never Alcohol Use Standard Drinks/Week Comments No 0 [...] hearing? Answer Date of Assessment Author No 09/25/2017 1:00 AM Colby Mccord, RN * Are you blind or do you have serious difficulty seeing, even when wearing glasses? Answer Date of Assessment Author No 09/25/2017 1:00 AM Colby Mccord, RN * Do you have serious difficulty walking or climbing stairs (5 years or older)? Answer Date of Assessment Author No 09/25/2017 1:00 AM Colby Mccord, RN * Do you have difficulty dressing or bathing (5 yrs or older)? Answer Date of Assessment Author No 09/25/2017 1:00 AM Colby Mccord RN * Because of a physical, mental, or emotional condition, do you have difficulty doing errands alone such as visiting a doctor's office or shopping (5 yrs or older)? Answer Date of Assessment Author No 09/25/2017 1:00 AM Colby Mccord RN documented as of this encounter Mental Status * Because of a physical, mental, or emotional condition, do you have serious difficulty concentrating, remembering, or making decisions (5 yrs or older)? Answer Entry Date Author No 09/25/2017 1:00 AM Colby Mccord RN documented in this encounter Miscellaneous Notes * Telephone Encounter - Mercy Zeng RN - 03/27/2020 12:09 PM EST Appears patient is being transferred to [facility] based on encounter note 03/26/2020. Gen [facility] 6 [facility] called to initiate transfer to [facility] (patient is established). [place] will call the [facility] transfer center and get back with us. Patient is currently admitted * Telephone Encounter - Maggie Abreu - 03/27/2020 11:08 AM EST Provider: Dr. Dee Subject of call: Admitted up-date request Reason for call: Pt spouse David called advised pt went to ER 03/26/20 [facility] for chronic pancreatis. Pt had blood work , CT scan and urine test. Hospital advised it could possibly be agall stone, but sure pt is having a blockage in the pancreas. [facility] wouldn't admit due to they don't specialize in gastroenterology. Pt spouse requesting a call to have pt admitting status to [facility]. Transferred pt to direct admit staff. Preferred call back time: [phone] documented in this encounter Plan of Treatment Not on file documented as of this encounter Visit Diagnoses Not on filedocumented in this encounter Care Teams Local Sales Associate Relationship Specialty Start Date End Date Pineda Troy MD PCP - Referring 1 Gastroenterology 09/25/17 [facility], Other [address] [place] [address] PCP - General 11/28/19 documented as of this encounter
--- OUTSIDE RECORDS SUMMARY | 2024-09-13 12:41 | XMS_ITS | Clinical Summary ---
Author Organization [facility] Address [address] [place] [address] Care Team Providers Care Physician Credentialing Specialist Name Role Phone Unavailable Primary Care Provider Unavailabl e Allergies Active Allergy Reactions Criticality Noted Date Comments Fentanyl Hives High 09/12/2020 Haloperidol Lactate Swelling 10/19/2017 Ibuprofen Hives,Anaphylaxis,Ot h er (See Comments),Shortness Of Breath,Swelling High 08/22/2011 Throat swelling Ketorolac Tromethamine Hives,Itching High 12/16/2021 Enoxaparin Itching,Rash Medium 08/23/2019 Metoclopramide Anxiety Low 06/30/2016 Morphine Hives 10/19/2017 Penicillins Anaphylaxis High 10/19/2017 Prochlorperazine Hives,Other (See Comments) High 03/18/2024 Tramadol Hives 10/19/2017 Medications pantoprazole (PROTONIX) 40 MG tablet Take 1 tablet by mouth every morning (before breakfast) 90 tablet 1 4 Active ondansetron (ZOFRAN-ODT) 4 MG disintegrating tablet Take 1 tablet by mouth 3 times daily as needed for Nausea or Vomiting 21 tablet 5 Active Active Problems Problem Noted Date Diagnosed Date Acute recurrent pancreatitis 08/22/2019 Encounters Date Type Department Care Team Description 08/08/2024 6:40 PM EDT - 08/08/2024 8:33 PM EDT Emergency [facility] Emergency Department [address] [place] [address] Abdominal pain, epigastric (Primary Dx) Discharge Disposition: Home or Self Care 08/08/2024 Travel from Last 3 Months Social History Tobacco Use Types Packs/Day Years Used Date Smoking Tobacco: Every Day Cigarettes Smokeless Tobacco: Never Tobacco Cessation:Ready to Q uit: Not Asked; Counseling Given: Not Answered Alcohol Use Standard Drinks/Week Comments No 0 (1 standard drink = 0.6 oz pur e alcohol) AUDIT-C Answer Date Recorded Q1: How often do you have a drink containing alcohol? Never 04/07/2024 Q2: How many drinks containi ng alcohol do you have on a typical day when you are drinking? Patient does not drink Q3: How often do you have si x or more drinks on one occasion? Never 04/07/2024 Interpersonal Safety Domain Source: IP Abuse Scr eening Answer Date Recorded Physical abuse Denies 08/08/2024 Verbal abuse Denies 08/08/2024 Emotional abuse Denies 08/08/2024 Financial abuse Denies 08/08/2024 Sexual abuse Denies 08/08/2024 Comments No Sex and Gender Information Value Date Recorded Sex Assigned at Female 08/08/2024 6:02 PM EDT Legal Sex Female 10:20 AM EST Gender Identity Female 08/08/2024 6:02 PM EDT Sexual Orientation Straight 08/08/2024 6: 02 PM EDT Last Filed Vital Signs Vital Sign Reading Time Taken Comments Blood Pressure 135/62 08/08/2024 7:32 PM EDT Pulse 86 08/08/2024 5:51 PM EDT Temperature 36.8 C (98.3 F) 08/08/2024 5:51 PM EDT Respiratory Rate 20 08/08/2024 5:51 PM EDT Oxygen Saturation 98% 08/08/2024 7:32 PM EDT Inhaled Oxygen Concentration - - Weight 56.7 kg (125 lb) 08/08/2024 5:51 PM EDT Height 157.5 cm (5' 2 ) 08/08/2024 5:51 PM EDT Body Mass Index 22.86 08/08/2024 5:51 PM EDT Plan of Treatment Health Maintenance Due Date Last Done Comments Depression Screen 1981 HIV screen 1984 Hepatitis C screen 06/21/1987 DTaP/Tdap/Td vaccine (1 - Tdap) 1988 Hepatitis B vaccine (1 of 3 - 19+ 3-dose series) 1988 Pneumococcal 50+ years Vacci ne (1 of 2 - PCV) 1988 Lipids 2009 Breast cancer screen 01/01/2014 01/02/2012 Colonoscopy 2014 Colorectal Cancer Screen 2014 FIT/FOBT: Average risk 2014 Fecal-DNA (Cologuard): [place] ge risk 2014 Sigmoidoscopy/CT colonography 2014 Shingles vaccine (1 of 2) 06/21/2019 COVID-19 Vaccine (2023-2 5 season) 2023 09/18/2020, 08/28/2020 Flu vaccine (#1) 10/07/2024 12/23/2015, 12/15/2014 Hepatitis A vaccine Aged Out No longe r eligible based on patient's age to complete this topic Hib vaccine Aged Out No longer eligi ble based on patient's age to complete this topic Meningococcal (ACWY) vaccine Aged Out No longer eligible based on patient's age to complete this topic Meningococcal B vaccine Aged Out No l onger eligible based on patient's age to complete this topic Polio vaccine Aged Out No longer elig ible based on patient's age to complete this topic Procedures Procedure Name Priority Date/Time Associated Diagnosis Comments MICROSCOPIC URINALYSIS Routine 7:40 PM EDT URINALYSIS WITH REFLEX TO CULTURE STAT 08/08/2024 7:40 PM EDT MAGNESIUM STAT 08/08/2024 7:10 PM EDT LIPASE STAT 08/08/2024 7:10 PM EDT LACTIC ACID STAT 08/08/2024 7:10 PM EDT COMPREHENSIVE METABOLIC PANEL STAT 08/08/2024 7:10 PM EDT CBC WITH AUTO DIFFERENTIAL STAT 08/08/2024 7:10 PM EDT from Last 3 Months Results * (ABNORMAL) Urinalysis with Reflex to Culture (08/08/2024 7:40 PM EDT) Color, UA Yellow Yellow 08/08/2024 7:[address] [facility] Turbidity UA SLIGHTLY CLOUDY(A) Clear 08/08/2024 7:[address] [facility] Glucose, Ur NEGATIVE NEGATIVE mg/dL 08/08/2024 7:[address] [facility] Bilirubin, Urine NEGATIVE NEGATIVE 08/08/2024 7:[address] [facility] Ketones, Urine NEGATIVE NEGATIVE mg/dL 08/08/2024 7:[address] [facility] Specific [place], UA 1.020 1.010 - 1.020 08/08/2024 7:[address] [facility] Urine Hgb NEGATIVE NEGATIVE 08/08/2024 7:[address] [facility] pH, Urine 6.0 5.0 - 9.0 08/08/2024 7:[address] [facility] Protein, UA NEGATIVE NEGATIVE mg/dL 08/08/2024 7:[address] [facility] Urobilinogen, Urine Normal 0.0 - 1.0 EU/dL 08/08/2024 7:[address] [facility] Nitrite, Urine NEGATIVE NEGATIVE 08/08/2024 7:[address] [facility] Leukocyte Esterase, Urine NEGATIVE NEGATIVE 08/08/2024 7:[address] [facility] URINE SPECIMEN / Unknown 08/08/2024 7:40 PM EDT 08/08/2024 7:42 PM EDT Kye Car PA-C URINE ORDERABLES Final Result [facility] [address] [id number] [phone] * (ABNORMAL) Microscopic Urinalysis (08/08/2024 7:40 PM EDT) WBC, UA 0 TO 2 0 - 5 /HPF 08/08/2024 7:[address] [facility] RBC, UA 0 TO 2 0 - 2 /HPF 08/08/2024 7:[address] [facility] Epithelial Cells, UA 10 TO 20 0 - 25 /HPF 08/08/2024 7:[address] [facility] Bacteria, UA 1+(A) None 08/08/2024 7:[address] [facility] Mucus, UA TRACE(A) None 08/08/2024 7:[address] [facility] Amorphous, UA TRACE(A) None 08/08/2024 7:[address] [facility] 08/08/2024 7:40 PM EDT 08/08/2024 7:42 PM EDT Kye Car PA-C URINE ORDERABLES Final Result [facility] [address] [phone] * CBC with Auto Differential (08/08/2024 7:10 PM EDT) WBC 10.3 3.5 - 11.3 k/uL 08/08/2024 7:[address] [facility] RBC 4.46 3.95 - 5.11 m/uL 08/08/2024 7:[address] [facility] Hemoglobin 14.9 11.9 - 15.1 g/dL 08/08/2024 7:[address] [facility] Hematocrit 44.1 36.3 - 47.1 % 08/08/2024 7:[address] [facility] MCV 98.9 82.6 - 102.9 fL 08/08/2024 7:[address] [facility] MCH 33.4 25.2 - 33.5 pg 08/08/2024 7:[address] [facility] MCHC 33.8 28.4 - 34.8 g/dL 08/08/2024 7:[address] [facility] RDW 12.5 11.8 - 14.4 % 08/08/2024 7:10 PM [facility] Platelets 265 138 - 453 k/uL 08/08/2024 7:10 PM [facility] MPV 9.5 8.1 - 13.5 fL 08/08/2024 7:10 PM [facility] NRBC Automated 0.0 0.0 per 100 WBC 08/08/2024 7:10 PM [facility] Neutrophils % 58 36 - 65 % 08/08/2024 7:10 PM [facility] Lymphocytes % 30 24 - 43 % 08/08/2024 7:10 PM [facility] Monocytes % 9 3 - 12 % 08/08/2024 7:10 PM [facility] Eosinophils % 2 1 - 4 % 08/08/2024 7:10 PM [facility] Basophils % 1 0 - 2 % 08/08/2024 7:10 PM [facility] Immature Granulocytes % 0 0 % 08/08/2024 7:10 PM [facility] Neutrophils Absolute 5.99 1.50 - 8.10 k/uL 08/08/2024 7:10 PM [facility] Lymphocytes Absolute 3.09 1.10 - 3.70 k/uL 08/08/2024 7:10 PM [facility] Monocytes Absolute 0.88 0.10 - 1.20 k/uL 08/08/2024 7:10 PM [facility] Eosinophils Absolute 0.17 0.00 - 0.44 k/uL 08/08/2024 7:10 PM [facility] Basophils Absolute 0.11 0.00 - 0.20 k/uL 08/08/2024 7:10 PM [facility] Immature Granulocytes Absolute 0.04 0.00 - 0.30 k/uL 08/08/2024 7:10 PM [facility] Blood BLOOD SPECIMEN / Unknown 08/08/2024 7:10 PM EDT 08/08/2024 7:13 PM EDT Kye Car PA-C HEMATOLOGY ORDERABLES Final Re sult Performing Organization Address [facility]/ZIP Co de Phone Number [facility] [address] [place] [address] * Magnesium (08/08/2024 7:10 PM EDT) Magnesium 2.4 1.6 - 2.6 mg/dL 08/08/2024 7:[address] [facility] Blood BLOOD SPECIMEN / Unknown 08/08/2024 7:10 PM EDT 08/08/2024 7:13 PM EDT Kye Car PA-C CHEMISTRY ORDERABLES Final Res ult Performing Organization Address [facility] Co de Phone Number [facility] [address] [place] [address] * (ABNORMAL) Lipase (08/08/2024 7:10 PM EDT) Lipase 109(H) 13 - 60 U/L 08/08/2024 7:[address] [facility] Blood BLOOD SPECIMEN / Unknown 08/08/2024 7:10 PM EDT 08/08/2024 7:13 PM EDT Kye Car PA-C CHEMISTRY ORDERABLES Final Res ult Performing Organization Address [facility] Co de Phone Number [facility] [address] [place] [address] * Lactic Acid (08/08/2024 7:10 PM EDT) Lactic Acid 1.2 0.5 - 2.2 mmol/L 08/08/2024 7:[address] [facility] Blood BLOOD SPECIMEN / Unknown 08/08/2024 7:10 PM EDT 08/08/2024 7:13 PM EDT Kye Car PA-C CHEMISTRY ORDERABLES Final Res ult [facility] [address] [phone] * (ABNORMAL) CMP (08/08/2024 7:10 PM EDT) Sodium 139 136 - 145 mmol/L 08/08/2024 7:[address] [facility] Potassium 4.5 3.7 - 5.3 mmol/L 08/08/2024 7:[address] [facility] Chloride 103 98 - 107 mmol/L 08/08/2024 7:[address] [facility] CO2 24 20 - 31 mmol/L 08/08/2024 7:[address] [facility] Anion Gap 12 9 - 16 mmol/L 08/08/2024 7:[address] [facility] Glucose 86 74 - 99 mg/dL 08/08/2024 7:[address] [facility] BUN 16 6 - 20 mg/dL 08/08/2024 7:[address] [facility] Creatinine 0.8 0.50 - 0.90 mg/dL 08/08/2024 7:[address] [facility] Est, Glom Filt Rate 81 >60 mL/min/1.7 3m2 08/08/2024 7:[address] [facility] Comment: These results are not intended for [...] following therapy that affects renal tubular secretion. BUN/Creatinine Ratio 20 9 - 20 08/08/2024 7:[address] [facility] Calcium 10.2 8.6 - 10.4 mg/dL 08/08/2024 7:[address] [facility] Total Protein 7.3 6.6 - 8.7 g/dL 08/08/2024 7:[address] [facility] Albumin 4.3 3.5 - 5.2 g/dL 08/08/2024 7:[address] [facility] Albumin/Globulin Ratio 1.5 1.0 - 2.5 08/08/2024 7:[address] [facility] Total Bilirubin <0.2 0.00 - 1.20 mg/dL 08/08/2024 7:[address] [facility] Alkaline Phosphatase 142(H) 35 - 104 U/L 08/08/2024 7:[address] [facility] ALT 9(L) 10 - 35 U/L 08/08/2024 7:[address] [facility] AST 21 10 - 35 U/L 08/08/2024 7:[address] [facility] Blood BLOOD SPECIMEN / Unknown 08/08/2024 7:10 PM EDT 08/08/2024 7:13 PM EDT Kye Car PA-C CHEMISTRY ORDERABLES Final Res ult [facility] [address] [id number], [facility] [phone] from Last [address] [place] [address] Advance Directives * Full Code (Latest Code Status on File) Date Activated Date Inactivated Comments 08/22/2019 4:27 PM 08/25/2019 12:21 PM
--- NOTE | 2024-09-13 12:57 | CT_ITS ---
[address] [address] Patient Name: CHIOMA BOUDREAUX MRN: [id number] date: 1970 Sex: F Assigned Patient Location: ER Current Patient Location: Accession/Order Number: [id number] Exam Date: 09/13/2024 14:23 Report Date: 09/13/2024 14:38 At the request of: DANIS BRIAN NP Procedure: CT abdomen pelvis w con CT abdomen pelvis w con 09/13/2024 2:09 PM SIGNS AND SYMPTOMS: Upper abdominal pain, nausea, vomiting, diarrhea TECHNIQUE: Multidetector ct axial images of the abdomen and pelvis were obtained with IV contrast. Multiplanar reformats were performed and reviewed to further define anatomy and possible pathology. CT was performed with one or more of the following dose reduction techniques: Automated exposure control, adjustment of the mA and/or kV according to patient size, or use of iterative reconstruction technique. COMPARISON: 01/24/2024 FINDINGS: Lower Chest: Within normal limits. ABDOMEN: Liver: Within normal limits. Bile Ducts: Normal caliber. Gallbladder: Previously removed Pancreas: Pancreatic duct is mildly prominent similar to the prior exam presumably relating to a history of chronic pancreatitis. Spleen: Within normal limits. Adrenals: There is a 1.4 cm left adrenal nodule. Kidneys: Within normal limits. Pelvis: Reproductive Organs: No pelvic masses. Ureters: Within normal limits. Bladder: Within normal limits. Bowel: Normal caliber. There is a normal appendix in the right lower quadrant. Mesenteric Lymph Nodes: No enlarged mesenteric lymph nodes. Peritoneum: No ascites or free air, no fluid collection. Vessels: Atherosclerotic changes are noted in the abdominal aorta and its branches. Retroperitoneum: Within normal limits. Abdominal Wall: Within normal limits. Bones: Degenerative changes are noted in the lumbar spine with a mild levoconvex curvature. CT/CT abdomen pelvis w con IMPRESSION: No acute intra-abdominal pathology. There is a 1.4 cm left adrenal nodule. Pancreatic duct is mildly prominent similar to the prior exam presumably relating to a history of chronic pancreatitis. Impression dictated by: Leonardo Ulloa M.D. 09/13/2024 2:38 PM Dictation Location: [place] [address] Electronically authenticated by: [id number] Y Date: 09/13/2024 14:38
--- NOTE | 2024-09-13 12:58 | ECG_ITS ---
[facility] Test Date: 2024-09-13 Pat Name: CHIOMA BOUDREAUX Department: Room: - Gender: Female Mig Welder: : 1970 Requested By: Order Number: [id number] Reading MD: ASHER TIWARI Measurements Intervals Challenge Rate: 89 P: 47 WY: 136 QRS: 58 QRSD: 72 T: 51 QT: 342 QTc: 389 Interpretive Statements 1100 Sinus rhythm 9110 normal ECG Compared to ECG 01/24/2024 17:55:37 Sinus arrhythmia no longer present Electronically Signed On 09-15-2024 9:01:30 EDT by ASHER TIWARI
--- NOTE | 2024-09-13 13:02 | ED.GENADUL1 ---
HPI HPI - General Adult General Chief complaint: Nausea/Vomiting/Diarrhea Stated complaint: VOMITING ABDOMINAL PAIN Time Seen by Provider: 09/13/24 12:39 Source: patient Mode of arrival: walk-in Limitations: no limitations History of Present Illness HPI narrative: The patient is a 54-year-old female who presents to the emergency department today for evaluation of concerns for a flare of chronic pancreatitis. She endorses she has had chronic pancreatitis over the past 16 years. She mention she sees a deputy sheriff building guard out of [facility]. She reports she had an upper endoscopy last week and stated it was all a mess and when specifically asked about those she said there was inflammation around her pancreas. She mentions her deputy sheriff building guard called in a new medication yesterday but states she has not picked up this medication yet. She endorses she began having worsening pain to her left upper quadrant epigastric region on 09/12. She reports associated symptoms of nausea/vomiting/diarrhea. She denies any fevers/ chills, chest pain, shortness of breath. No urinary symptoms or back/flank pain. She mention she has a follow-up appointment with her deputy sheriff building guard later this month to discuss a nerve block for her pain that she has had in the past. Related Data Home Medications ?Medication ?Instructions ?Recorded ?Confirmed dicyclomine 10 mg capsule 10 mg PO BID 09/13/24 09/13/24 famotidine 20 mg tablet 20 mg PO Q12H 09/13/24 09/13/24 ondansetron 4 mg disintegrating 4 mg PO Q8H PRN nausea and vomiting 09/13/24 09/13/24 tablet Allergies Allergy/AdvReac Type Severity Reaction Status Date / Time haloperidol (From Haldol) Allergy Intermediate Hives Verified 07/26/24 21:23 ibuprofen (From Motrin) Allergy Intermediate Hives Verified 07/26/24 21:23 tramadol Allergy Intermediate Hives Verified 07/26/24 21:23 Penicillins Allergy Unknown Anaphylaxis Verified 07/26/24 21:23 morphine Allergy swells Verified 07/26/24 21:23 prochlorperazine (From Allergy Hives Verified 07/26/24 21:23 Compazine) ketorolac (From Toradol) AdvReac Severe Hives Verified 07/26/24 21:23 fentanyl AdvReac Intermediate Hives Verified 07/26/24 21:23 Opioid HPI Opioid Management Most Recent Opioid Data: Last Pain Scale 8 Today, 12:38 Review of Systems ROS Status of ROS 10 or more systems reviewed and unremarkable except as noted in history and below PFSH PFSH Medical History (Updated 09/13/24 @ 14:50 by Kika Dyer NP) COPD (chronic obstructive pulmonary disease) ?J44.9 - Chronic obstructive pulmonary disease, unspecified (ICD-10) Chronic pancreatitis ?K86.1 - Other chronic pancreatitis (ICD-10) Smoker ?F17.200 - Nicotine dependence, unspecified, uncomplicated (ICD-10) History of gastrostomy tube placement Surgical History (Updated 04/03/23 @ 12:10 by Marni Farley) Hx of esophagogastroduodenoscopy ?Z98.890 - Other specified postprocedural states (ICD-10) H/O colonoscopy ?Z98.890 - Other specified postprocedural states (ICD-10) Hx of cholecystectomy ?Z90.49 - Acquired absence of other specified parts of digestive tract (ICD-10) H/O: hysterectomy ?Z90.710 - Acquired absence of both cervix and uterus (ICD-10) Social History (Updated 04/03/23 @ 12:08 by Marni Farley) Smoking status: Current every day smoker Non-prescribed substance use: denies use Highest level of school completed/degree received: high school graduate Little interest or pleasure in doing things: not at all Feeling down, depressed, or hopeless: not at all Exam Narrative Exam Narrative: Constituational: Awake/ alert, no apparent distress, appears older than stated age, otherwise well-hydrated HENMT: normocephalic, external ears normal, moist oral mucous membranes and oropharynx normal Eyes: EOMI and conjunctivae normal Neck: ROM intact Chest: inspection of chest normal Respiratory: Normal respiratory effort, clear to auscultation bilaterally Cardio: regular rate and regular rhythm GI: + Mild discomfort with palpation LUQ/epigastric region, abdomen is otherwise soft to palpation and non-tender, sounds Back: nontender MSK: ROM intact, +NVI Skin: no rashes or petechiae Neuro: no focal deficits Psych: mental status grossly normal Constitutional Vital Signs, click to edit/add: Last Vital Signs Temp 98.4 F 09/13/24 12:38 Pulse 96 H 09/13/24 12:38 Resp 17 09/13/24 12:38 BP 133/83 09/13/24 12:38 Pulse Ox 98 09/13/24 12:38 O2 Del Method Room Air 09/13/24 12:38 Course Vital Signs Vital signs: Vital Signs Temperature 98.4 F 09/13/24 12:38 Pulse Rate 96 H 09/13/24 12:38 Respiratory Rate 17 09/13/24 12:38 Blood Pressure 133/83 09/13/24 12:38 Pulse Oximetry 98 09/13/24 12:38 Oxygen Delivery Method Room Air 09/13/24 12:38 Temperature 98.4 F 09/13/24 12:38 Pulse Rate 96 H 09/13/24 12:38 Respiratory Rate 17 09/13/24 12:38 Blood Pressure 133/83 09/13/24 12:38 Pulse Oximetry 98 09/13/24 12:38 Oxygen Delivery Method Room Air 09/13/24 12:38 Medical Decision Making MDM Narrative Medical decision making narrative: Patient is a nontoxic-appearing 54-year-old female who presented to the emergency department today for evaluation of concerns for acute on chronic pancreatitis pain. Initial examination vital signs overall stable. No acute abdominal findings on exam. She is ambulatory and does not appear to be in any acute pain while in the ER currently. Labs stable and showed no significant leukocytosis, anemia, thrombocytopenia. Lites including renal and hepatic functions stable. Lipase is 160 and overall down trended from 07/2024. UA is negative for UTI. EKG without acute changes and troponin is negative x 1. She does not appear to be exhibiting any ischemic symptoms on exam. Patient did however receive a liter of IV fluids and Zofran. On reevaluation she continues to be well-appearing. She denies any nausea or vomiting. Imaging of abdomen pelvis without acute findings and does show changes suggestive of chronic pancreatitis. Discussed this with the patient including recommendations for supportive care. Historically patient states she had an endoscopy in the past week and her deputy sheriff building guard did prescribe her a new medication yesterday that she has not yet picked up that is supposed to be for her chronic pancreatitis with some acute pain. Does not know the name of this medication but stated it was at her pharmacy ready to picker box operator. Discussed these findings with the patient including recommendations for supportive care. Advised on follow-up with patient's deputy sheriff building guard at [facility] for reevaluation. Discussed signs and symptoms of any worsening condition and when to consider reevaluation by the emergency department. Patient verbalized an understanding of this and is agreeable with the plan to be discharged home. Medical Records Medical records reviewed: Yes I reviewed the patient's medical records Lab Data Lab results reviewed: Yes I reviewed the patient's lab results Labs: Lab Results 09/13/24 09/13/24 Range/Units 13:10 14:00 WBC 10.8 (4.0-11.0) 10^3/uL RBC 4.26 (4.20-5.40) 10^6/uL Hgb 14.1 (12.0-16.0) g/dL Hct 41.5 (36.0-48.0) % MCV 97.4 (81.0-99.0) fL MCH 33.1 (26.7-34.0) pg MCHC 34.0 (29.9-35.2) g/dL RDW 12.9 (11.0-15.0) % Plt Count 272 (150-450) 10^3/uL MPV 9.6 (9.5-13.5) fL Neut % (Auto) 66.7 (43.0-75.0) % Lymph % (Auto) 22.6 (20.5-60.0) % Ulster % (Auto) 8.4 (1.7-12.0) % Eos % (Auto) 1.4 (0.9-7.0) % Baso % (Auto) 0.6 (0.2-2.0) % Neut # (Auto) 7.2 H (1.4-6.5) 10^3/uL Lymph # (Auto) 2.4 (1.2-3.8) 10^3/uL Ulster # (Auto) 0.9 H (0.3-0.8) 10^3/uL Eos # (Auto) 0.2 (0.0-0.7) 10^3/uL Baso # (Auto) 0.1 (0.0-0.1) 10^3/uL Abs Immat Gran (auto) 0.03 (0.00-0.03) 10^3/uL Imm/Tot Granulo (auto) 0.3 (0.0-0.5) % Sodium 142 (136-145) mmol/L Potassium 4.1 (3.5-5.1) mmol/L Chloride 105 (98-107) mmol/L Carbon Dioxide 24.1 (21.0-32.0) mmol/L Anion Gap 17.0 BUN 12.0 (7.0-18.0) mg/dL Creatinine 0.84 (0.55-1.02) mg/dL Est GFR ( Amer) >60 (>=60 mL/min/1.73m^2) Est GFR (Non-Af Amer) >60 (>=60 mL/min/1.73m^2) BUN/Creatinine Ratio 14.3 Glucose 98 (74-106) mg/dL Calcium 10.1 (8.5-10.1) mg/dL Total Bilirubin 0.1 L (0.2-1.0) mg/dL AST 18 (15-37) U/L ALT 16 (14-59) U/L Alkaline Phosphatase 134 H (46-116) U/L Troponin I High Sens <4.0 L (4.0-51.3) pg/mL Total Protein 7.1 (6.4-8.2) g/dL Albumin 3.7 (3.4-5.0) g/dL Globulin 3.4 g/dL Albumin/Globulin Ratio 1.1 Lipase 160.0 H (16.0-77.0) U/L Urine Color Lt. yellow (YELLOW) Urine Clarity Clear (CLEAR) Urine pH 6.0 (5.0-9.0) Ur Specific Stockett <=1.005 A (1.005-1.025) Urine Protein Negative (NEG/TRACE) mg/dL Urine Glucose (UA) Negative (NEGATIVE) mg/dL Urine Ketones Negative (NEGATIVE) mg/dL Urine Occult Blood Negative (NEGATIVE) Urine Nitrite Negative (NEGATIVE) Urine Bilirubin Negative (NEGATIVE) Urine Urobilinogen 0.2 (0.2-1.0) EU/dL Ur Leukocyte Esterase Negative (NEGATIVE) Imaging Data CT scan - abdomen: Attestation: I personally reviewed and interpreted this imaging study as follows: Radiologist's impression: ITS Impressions Abdomen/Pelvis CT 09/13/24 12:57 IMPRESSION: No acute intra-abdominal pathology. There is a 1.4 cm left adrenal nodule. Pancreatic duct is mildly prominent similar to the prior exam presumably relating to a history of chronic pancreatitis. Impression dictated by: Leonardo Ulloa M.D. 09/13/2024 2:38 PM Dictation Location: [place] [address] Electronically authenticated by: [id number] Y Date: 09/13/2024 14:38 ECG Data Attestation: I personally reviewed and interpreted this ECG as follows: Discharge Plan Discharge Chief Complaint: Nausea/Vomiting/Diarrhea Clinical Impression: Chronic pancreatitis Patient Disposition: Home, Self-Care Prescriptions / Home Meds: No Action famotidine 20 mg tablet 20 mg PO Q12H ondansetron 4 mg tablet,disintegrating 4 mg PO Q8H PRN (Reason: nausea and vomiting) dicyclomine 10 mg capsule 10 mg PO BID Print Language: Vietnamese Instructions: Pancreatitis (ED) Additional Instructions: Continue with the medication your deputy sheriff building guard prescribed and additionally picker box operator the new medication your deputy sheriff building guard prescribed for management of your chronic pancreatitis. Follow-up with your deputy sheriff building guard for reevaluation as discussed. May return to the ER with any new or worsening symptoms/concerns. Referrals: [facility] [Primary Care Provider, Unknown] - 1 week
[2024-09-13] MEDS: 0.9 % SODIUM CHLORIDE 1,000 ML 1000 ML IV (13:10)
[2024-09-13 13:19] LABS: Hematocrit 41.5 % (36.0-48.0); Hemoglobin 14.1 g/dL (12.0-16.0); Immature Granulocytes Abs Auto 0.03 10^3/uL (0.00-0.03); Immature Granulocytes Pct Auto 0.3 % (0.0-0.5); Lymphocytes Absolute Auto 2.4 10^3/uL (1.2-3.8); Mean Corpuscular HGB Conc 34.0 g/dL (29.9-35.2); Mean Corpuscular Hemoglobin 33.1 pg (26.7-34.0); Mean Corpuscular Volume 97.4 fL (81.0-99.0); Platelet Count 272 10^3/uL (150-450); Red Blood Count 4.26 10^6/uL (4.20-5.40); White Blood Count 10.8 10^3/uL (4.0-11.0)
[2024-09-13 13:28] VITALS: PULSE 78
[2024-09-13 13:33] LABS: Alanine Aminotransferase 16 U/L (14-59); Albumin Globulin Ratio 1.1; Albumin Level 3.7 g/dL (3.4-5.0); Alkaline Phosphatase 134 U/L (46-116); Anion Gap 17.0; Aspartate Amino Transferase 18 U/L (15-37); Blood Urea Nitrogen 12.0 mg/dL (7.0-18.0); Calcium 10.1 mg/dL (8.5-10.1); Carbon Dioxide 24.1 mmol/L (21.0-32.0); Chloride 105 mmol/L (98-107); Estimated GFR (African America >60 (>=60 mL/min/1.73m^2); Estimated GFR (Non-African Ame >60 (>=60 mL/min/1.73m^2); Globulin 3.4 g/dL; Glucose 98 mg/dL (74-106); Potassium 4.1 mmol/L (3.5-5.1); Sodium 142 mmol/L (136-145); Total Protein 7.1 g/dL (6.4-8.2)
[2024-09-13 13:36] LABS: Lipase 160.0 U/L (16.0-77.0)
[2024-09-13 14:22] LABS: Glucose Urine UA NEGATIVE (NEGATIVE)
[2024-09-13 15:10] VITALS: BP 123/81; PULSE 87; TEMP 36.7; O2SAT 100
== END 2024-09-13 15:14 | disposition home or self-care (01) ==
PROVIDERS: Nurse Practitioner; Emergency Provider Emergency Medicine
DX: K86.1 Other chronic pancreatitis (principal); Z90.49 Acquired absence of other specified parts of digestive tract; Z90.710 Acquired absence of both cervix and uterus; F17.200 Nicotine dependence, unspecified, uncomplicated
CPT/HCPCS: 36415; 74177; 80053; 81003; 83690; 84484; 85025; 93005; 96361; 96374; 99285; J2405; Q9967

== ENCOUNTER 2024-09-23 16:11 | Emergency (ER) | payer OTHER, SELFPAY ==
[2024-09-23 16:17] VITALS: BP 122/81; PULSE 88; TEMP 36.8; O2SAT 98; BMI 24.7
--- NOTE | 2024-09-23 16:24 | XR_ITS ---
The [address] [address] Patient Name: CHIOMA BOUDREAUX MRN: [id number] date: 1970 Sex: F Assigned Patient Location: ER Current Patient Location: ED.MAIN Accession/Order Number: [id number] Exam Date: 09/23/2024 16:56 Report Date: 09/23/2024 16:57 At the request of: DIKR MAXWELL Procedure: XR ankle LT min 3V XR ankle LT min 3V 09/23/2024 4:42 PM SIGNS AND SYMPTOMS: Acute left ankle pain PROTOCOL: Frontal, lateral, and oblique radiographs of the left ankle COMPARISON: None FINDINGS: The ankle mortise is preserved. There is soft tissue swelling over the lateral malleolus. There is no evidence of acute displaced fracture. XR/XR ankle LT min 3V IMPRESSION: No acute displaced fracture. Soft tissue swelling is noted greatest laterally. Impression dictated by: Leonardo Ulloa M.D. 09/23/2024 4:57 PM Dictation Location: [place] [address] Electronically authenticated by: [id number] Y Date: 09/23/2024 16:57
--- NOTE | 2024-09-23 17:00 | ED_ITS ---
HPI HPI - Extremity Injury (Lower) General Chief Complaint: Extremity Injury, Lower Stated Complaint: LOWER EXTREMITY INJURY Time Seen by Provider: 09/23/24 16:17 Source: patient Mode of arrival: walk-in Limitations: no limitations History of Present Illness HPI Narrative: 54-year-old female presents with chief complaint of left ankle pain. She was walking through her house and socks and states she slipped and twisted her ankle. She said her ankle laterally everted. She has pain and swelling to the left fibular region. Patient is able to bear weight. Extremities neurovascular intact. She denies any previous fracture or trauma to this extremity Related Data Home Medications ?Medication ?Instructions ?Recorded ?Confirmed dicyclomine 10 mg capsule 10 mg PO BID 09/13/24 famotidine 20 mg tablet 20 mg PO Q12H 09/13/2409/13 ondansetron 4 mg disintegrating 4 mg PO Q8H PRN nausea and vomiting 09/13/24 09/13/24 tablet Allergies Allergy/AdvReac Type Severity Reaction Status Date / Time haloperidol (From Haldol) Allergy Intermediate Hives Verified 07/26/24 21:23 ibuprofen (From Motrin) Allergy Intermediate Hives Verified 07/26/24 21:23 tramadol Allergy Intermediate Hives Verified 07/26/24 21:23 Penicillins Allergy Unknown Anaphylaxis Verified 07/26/24 21:23 morphine Allergy swells Verified 07/26/24 21:23 prochlorperazine (From Allergy Hives Verified 07/26/24 21:23 Compazine) ketorolac (From Toradol) AdvReac Severe Hives Verified 07/26/24 21:23 fentanyl AdvReac Intermediate Hives Verified 07/26/24 21:23 Opioid HPI Opioid Management Most Recent Pain and Opioid Data: Last Pain Scale 9 Today, 16:17 Review of Systems ROS Status of ROS 10 or more systems reviewed and unremark able except as noted in history and below PFSH PFS Medical History (Updated 09/23/24 @ 16:56 by Nat Schaefer) COPD (chronic obstructive pulmonary disease) ?J44.9 - Chronic obstructive pulmonary disease, unspecified (ICD-10) Chronic pancreatitis ?K86.1 - Other chronic pancreatitis (ICD-10) Smoker ?F17.200 - Nicotine dependence, unspecified, uncomplicated (ICD-10) History of gastrostomy tube placement Surgical History (Updated 04/03/23 @ 12:10 by Marni Farley) Hx of esophagogastroduodenoscopy ?Z98.890 - Other specified postprocedural states (ICD-10) H/O colonoscopy ?Z98.890 - Other specified postprocedural states (ICD-10) Hx of cholecystectomy ?Z90.49 - Acquired absence of other specified parts of digestive tract (ICD- 10) H/O: hysterectomy ?Z90.710 - Acquired absence of both cervix and uterus (ICD-10) Social History (Updated 04/03/23 @ 12:08 by Marni Farley) Smoking status: Current every day smoker Non-prescribed substance use: denies use Highest level of school completed/degree received: high school graduate Little interest or pleasure in doing things: not at all Feeling down, depressed, or hopeless: not at all Exam Narrative Exam Narrative: All Systems are negative except as noted/marked.All systems reviewed and otherwise negative Nurses note and vital signs reviewed and patient is not hypoxic. General: The patient appears well and in no apparent distress. Patient is resting comfortably on cart. Skin: Warm, dry, no pallor noted. There is no rash noted. Head: Normocephalic, atraumatic Musculoskeletal: No ankle swelling, pain and tenderness to the left lateral aspect fibular region, she is able to rotate ankle extremities neurovascularly intact. The patient has no evidence of calf tenderness, no pitting edema, symmetrical pulses noted bilaterally Neurological: A&O x4, normal speech Psychiatric: Cooperative Constitutional Vital Signs, click to edit/add: Last Vital Signs Temp 98.3 F 09/23/24 16:17 Pulse 88 09/23/24 16:17 Resp 18 09/23/24 16:17 BP 122/81 09/23/24 16:17 Pulse Ox 98 09/23/24 16:17 Course Vital Signs Vital signs: Vital Signs Temperature 98.3 F 09/23/24 16:17 Pulse Rate 88 09/23/24 16:17 Respiratory Rate 18 09/23/24 16:17 Blood Pressure 122/81 09/23/24 16:17 Pulse Oximetry 98 09/23/24 16:17 Temperature 98.3 F 09/23/24 16:17 Pulse Rate 88 09/23/24 16:17 Respiratory Rate 18 09/23/24 16:17 Blood Pressure 122/81 09/23/24 16:17 Pulse Oximetry 98 09/23/24 16:17 MDM - Extremity Injury (Lower) [facility] Narrative Medical decision making narrative: Left lateral ankle pain and swelling. X-ray shows no acute deformity deformity or fracture. Patient be treated as a sprain. Told to rest ice elevate at home. Medicated with 1 [place] here. Continue with Tylenol at home. Patient was given Pepe wrap air splint applied by nursing staff here without difficulty Differential Diagnosis Differential diagnosis: Likely ankle sprain and strain and ankle fracture Medical Records Attestation: I reviewed the patient's medical records. Imaging Data ankle: Radiologist's impression: ITS Impressions Ankle X-Ray 09/23/24 16:24 IMPRESSION: No acute displaced fracture. Soft tissue swelling is noted greatest laterally. Impression dictated by: Leonardo Ulloa M.D. 09/23/2024 4:57 PM [facility]ictation [facility] Electronically authenticated by: [id number] Y Date: 09/23/2024 16:57 Discharge Plan Discharge Chief Complaint: Extremity Injury, Lower Clinical Impression: Ankle sprain and strain Patient Disposition: Home, Self-Care Time of Disposition Decision: 16:56 Condition: Good Prescriptions / Home Meds: No Action famotidine 20 mg tablet 20 mg PO Q12H ondansetron 4 mg tablet,disintegrating 4 mg PO Q8H PRN (Reason: nausea and vomiting) dicyclomine 10 mg capsule 10 mg PO BID Print Language: Turkish Instructions: Ankle Sprain (ED), P.R.I.C.E. Treatment (ED) Referrals: [facility] [Primary Care Provider, Unknown] - 1 week Brayan Mathias MD [Physician, Orthopedics] - 1 week
[2024-09-23] MEDS: HYDROCODONE/ACET 5-325 MG TABLET 1 TAB PO (17:28)
== END 2024-09-23 17:39 | disposition home or self-care (01) ==
PROVIDERS: Emergency Provider Emergency Medicine
DX: S96.912A Strain of unspecified muscle and tendon at ankle and foot level, left foot, initial encounter (principal); S93.402A Sprain of unspecified ligament of left ankle, initial encounter; Z90.49 Acquired absence of other specified parts of digestive tract; Z90.710 Acquired absence of both cervix and uterus; F17.200 Nicotine dependence, unspecified, uncomplicated; X50.1XXA Overexertion from prolonged static or awkward postures, initial encounter
CPT/HCPCS: 73610; 99283

== ENCOUNTER 2024-10-13 17:19 | Emergency (ER) | payer OTHER, SELFPAY ==
[2024-10-13] VITALS (9 sets, daily range): BP systolic 116–129; BP diastolic 68–97; PULSE 98; TEMP 36.8; O2SAT 96–100; BMI 20.6
[2024-10-13 18:02] LABS: Hematocrit 42.3 % (36.0-48.0); Hemoglobin 14.3 g/dL (12.0-16.0); Immature Granulocytes Abs Auto 0.02 10^3/uL (0.00-0.03); Immature Granulocytes Pct Auto 0.2 % (0.0-0.5); Lymphocytes Absolute Auto 3.0 10^3/uL (1.2-3.8); Mean Corpuscular HGB Conc 33.8 g/dL (29.9-35.2); Mean Corpuscular Hemoglobin 33.3 pg (26.7-34.0); Mean Corpuscular Volume 98.4 fL (81.0-99.0); Platelet Count 288 10^3/uL (150-450); Red Blood Count 4.30 10^6/uL (4.20-5.40); White Blood Count 9.5 10^3/uL (4.0-11.0)
[2024-10-13 18:10] LABS: Amylase 83 U/L (25-115)
[2024-10-13 18:15] LABS: Alanine Aminotransferase 20 U/L (14-59); Albumin Globulin Ratio 1.1; Albumin Level 4.0 g/dL (3.4-5.0); Alkaline Phosphatase 136 U/L (46-116); Anion Gap 14.6; Aspartate Amino Transferase 20 U/L (15-37); Blood Urea Nitrogen 8.0 mg/dL (7.0-18.0); Calcium 9.9 mg/dL (8.5-10.1); Carbon Dioxide 28.1 mmol/L (21.0-32.0); Chloride 103 mmol/L (98-107); Estimated GFR (African America >60 (>=60 mL/min/1.73m^2); Estimated GFR (Non-African Ame >60 (>=60 mL/min/1.73m^2); Globulin 3.6 g/dL; Glucose 147 mg/dL (74-106); Lipase 44.0 U/L (16.0-77.0); Potassium 3.7 mmol/L (3.5-5.1); Sodium 142 mmol/L (136-145); Total Protein 7.6 g/dL (6.4-8.2)
[2024-10-13] MEDS: HYDROMORPHONE HCL 1 MG/ML CARTRIDGE IM (18:24)
[2024-10-13 18:47] LABS: Glucose Urine UA NEGATIVE (NEGATIVE)
--- NOTE | 2024-10-13 18:52 | ED_ITS ---
HPI HPI - General Adult General Chief complaint: Abdominal Pain Stated complaint: ABDOMINAL PAIN VOMITING Time Seen by Provider: 10/13/24 17:35 Source: patient Mode of arrival: walk-in Limitations: no limitations History of Present Illness HPI narrative: Patient is a 54yr old female with a PMH of chronic pancreatitis that presents to the emergency department with complaints of 3 days of abdominal pain, nausea, and vomiting. She does see GI at [facility] and has had band dilation and nerve blocks in the past to help with her pain. She wasn't able to get in to see them until November and couldn't wait secondary to the pain. She states that she hasn't been able to keep any food or drink down. She denies hematemeis and hematocheszia. She does have a past surgical history of cholesytecomy and partial hyserectomy. She denies fever, chills, night sweats, chest pain, SOB, hematuria, urinary retention, urgency, or frequency. Related Data Home Medications ?Medication ?Instructions ?Recorded ?Confirmed dicyclomine 10 mg capsule 10 mg PO BID 09/13/24 famotidine 20 mg tablet 20 mg PO Q12H 09/13/2410/13 ondansetron 4 mg disintegrating 4 mg PO Q8H PRN nausea and vomiting 09/13/24 10/13/24 tablet Allergies Allergy/AdvReac Type Severity Reaction Status Date / Time haloperidol (From Haldol) Allergy Intermediate Hives Verified 10/13/24 17:26 ibuprofen (From Motrin) Allergy Intermediate Hives Verified 10/13/24 17:26 tramadol Allergy Intermediate Hives Verified 10/13/24 17:26 Penicillins Allergy Unknown Anaphylaxis Verified 10/13/24 17:26 morphine Allergy swells Verified 10/13/24 17:26 prochlorperazine (From Allergy Hives Verified 10/13/24 17:26 Compazine) ketorolac (From Toradol) AdvReac Severe Hives Verified 10/13/24 17:26 fentanyl AdvReac Intermediate Hives Verified 10/13/24 17:26 Opioid HPI Opioid Management Most Recent Opioid Data: Last Pain Scale 6 Today, 21:12 Last ED Pain Assessment Today, 19:15 Last MAR Pain Assessment Today, 18:24 Review of Systems ROS Status of ROS 10 or more systems reviewed and unremark able except as noted in history and below Gastrointestinal Reports: abdominal pain, nausea, vomiting and diarrhea PFSH PFSH Medical History (Updated 10/13/24 @ 21:16 by ANKIT Santos) COPD (chronic obstructive pulmonary disease) ?J44.9 - Chronic obstructive pulmonary disease, unspecified (ICD-10) Chronic pancreatitis ?K86.1 - Other chronic pancreatitis (ICD-10) Smoker ?F17.200 - Nicotine dependence, unspecified, uncomplicated (ICD-10) History of gastrostomy tube placement Surgical History (Updated 04/03/23 @ 12:10 by Marni Farley) Hx of esophagogastroduodenoscopy ?Z98.890 - Other specified postprocedural states (ICD-10) H/O colonoscopy ?Z98.890 - Other specified postprocedural states (ICD-10) Hx of cholecystectomy ?Z90.49 - Acquired absence of other specified parts of digestive tract (ICD-10) H/O: hysterectomy ?Z90.710 - Acquired absence of both cervix and uterus (ICD-10) Social History (Updated 04/03/23 @ 12:08 by Marni Farley) Smoking status: Current every day smoker Non-prescribed substance use: denies use Highest level of school completed/degree received: high school graduate Little interest or pleasure in doing things: not at all Feeling down, depressed, or hopeless: not at all Exam Narrative Exam Narrative: Constituational: Awake/ alert, no apparent distress, appears older than stated age HENMT: normocephalic, external ears normal, moist oral mucous membranes and oropharynx normal Eyes: EOMI and conjunctivae normal Neck: ROM intact Chest: inspection of chest normal Respiratory: Normal respiratory effort, clear to auscultation bilaterally Cardio: regular rate and regular rhythm GI: + Epigastric region tenderness with palpation, abdomen is otherwise soft to palpation and non-tender, no rebound tenderness, non peritoneal Back: nontender MSK: ROM intact, +NVI Skin: no rashes or petechiae Neuro: no focal deficits Psych: mental status grossly normal Constitutional Vital Signs, click to edit/add: Last Vital Signs Temp 98.3 F 10/13/24 17:27 Pulse 98 H 10/13/24 17:27 Resp 18 10/13/24 17:27 BP 122/68 10/13/24 21:02 Pulse Ox 100 10/13/24 20:52 O2 Del Method Room Air 10/13/24 17:27 Course Vital Signs Vital signs: Vital Signs Temperature 98.3 F 10/13/24 17:27 Pulse Rate 98 H 10/13/24 17:27 Respiratory Rate 18 10/13/24 17:27 Blood Pressure 128/97 H 10/13/24 17:27 Pulse Oximetry 98 10/13/24 17:27 Oxygen Delivery Method Room Air 10/13/24 17:27 Temperature 98.3 F 10/13/24 17:27 Pulse Rate 98 H 10/13/24 17:27 Respiratory Rate 18 10/13/24 17:27 Blood Pressure 122/68 10/13/24 21:02 Pulse Oximetry 100 10/13/24 20:52 Oxygen Delivery Method Room Air 10/13/24 17:27 Medical Decision Making MDM Narrative Medical decision making narrative: Patient is a nontoxic-appearing 54-year-old female who presented to the emergency department today for evaluation of concerns for acute on chronic pancreatitis pain with nausea, vomiting, and diarrhea for 3 days. She has been unable to keep down anything PO. Initial examination vital signs overall stable. 1L LR given, 1mg Dilaudid and Zofran given. Labs drawn. Labs stable and showed no significant leukocytosis, anemia, thrombocytopenia. Lytes including renal and hepatic functions stable. Lipase/ Amylase wnl. UA is negative for UTI. She does not appear to be exhibiting any ischemic symptoms on exam. On reevaluation she continues to be well-appearing, improved but polishing machine tender and painful. Another 1mg of Dilaudid given. Vitals stable. On re-evaluation patient resting comfortably, non tender on exam. Will do a PO challenge. Crackers and water given to patient. Patient tolerated and able to keep food/water down. Discussed labs with patient and she is agreeable to go home given pain is controlled and she passed PO challenge. 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 She has an appointment in November to discuss repeat band dilation and another block. Discussed signs and symptoms of any worsening condition and when to consider reevaluation by the emergency department. Patient verbalized an understanding of this and is agreeable with the plan to be discharged home. Differential Diagnosis Differential Diagnosis: Pancreatis, Chronic abdominal pain, UTI, Kidney Stone Lab Data Labs: Lab Results 10/13/24 10/13/24 Range/Units 17:40 18:25 WBC 9.5 (4.0-11.0) 10^3/uL RBC 4.30 (4.20-5.40) 10^6/uL Hgb 14.3 (12.0-16.0) g/dL Hct 42.3 (36.0-48.0) % MCV 98.4 (81.0-99.0) fL MCH 33.3 (26.7-34.0) pg MCHC 33.8 (29.9-35.2) g/dL RDW 13.2 (11.0-15.0) % Plt Count 288 (150-450) 10^3/uL MPV 9.7 (9.5-13.5) fL Neut % (Auto) 58.8 (43.0-75.0) % Lymph % (Auto) 30.9 (20.5-60.0) % Dukes % (Auto) 8.1 (1.7-12.0) % Eos % (Auto) 1.3 (0.9-7.0) % Baso % (Auto) 0.7 (0.2-2.0) % Neut # (Auto) 5.6 (1.4-6.5) 10^3/uL Lymph # (Auto) 3.0 (1.2-3.8) 10^3/uL Dukes # (Auto) 0.8 (0.3-0.8) 10^3/uL Eos # (Auto) 0.1 (0.0-0.7) 10^3/uL Baso # (Auto) 0.1 (0.0-0.1) 10^3/uL Abs Immat Gran (auto) 0.02 (0.00-0.03) 10^3/uL Imm/Tot Granulo (auto) 0.2 (0.0-0.5) % Sodium 142 (136-145) mmol/L Potassium 3.7 (3.5-5.1) mmol/L Chloride 103 (98-107) mmol/L Carbon Dioxide 28.1 (21.0-32.0) mmol/L Anion Gap 14.6 BUN 8.0 (7.0-18.0) mg/dL Creatinine 0.85 (0.55-1.02) mg/dL Est GFR ( Amer) >60 (>=60 mL/min/1.73m^2) Est GFR (Non-Af Amer) >60 (>=60 mL/min/1.73m^2) BUN/Creatinine Ratio 9.4 Glucose 147 H (74-106) mg/dL Calcium 9.9 (8.5-10.1) mg/dL Total Bilirubin 0.3 (0.2-1.0) mg/dL AST 20 (15-37) U/L ALT 20 (14-59) U/L Alkaline Phosphatase 136 H (46-116) U/L Total Protein 7.6 (6.4-8.2) g/dL Albumin 4.0 (3.4-5.0) g/dL Globulin 3.6 g/dL Albumin/Globulin Ratio 1.1 Amylase 83 (25-115) U/L Lipase 44.0 (16.0-77.0) U/L Urine Color Lt. yellow (YELLOW) Urine Clarity Clear (CLEAR) Urine pH 6.0 (5.0-9.0) Ur Specific [place] <=1.005 A (1.005-1.025) Urine Protein Negative (NEG/TRACE) mg/dL Urine Glucose (UA) Negative (NEGATIVE) mg/dL Urine Ketones Negative (NEGATIVE) mg/dL Urine Occult Blood Negative (NEGATIVE) Urine Nitrite Negative (NEGATIVE) Urine Bilirubin Negative (NEGATIVE) Urine Urobilinogen 0.2 (0.2-1.0) EU/dL Ur Leukocyte Esterase Negative (NEGATIVE) Urine RBC 0-2 (0-2) #/HPF Urine WBC 0-2 A (NONE SEEN) #/HPF Ur Squamous Epith Cells Rare (NONE/RARE) #/LPF Urine Crystals None seen (None Seen) #/HPF Urine Bacteria Trace A (NONE SEEN) #/HPF Urine Casts None seen (NONE SEEN) #/LPF Urine Mucus None seen (NONE SEEN) Ur Culture Indicated? No Discharge Plan Discharge Chief Complaint: Abdominal Pain Clinical Impression: Chronic pancreatitis Patient Disposition: Home, Self-Care Time of Disposition Decision: 21:14 Condition: Good Mode of Transportation: Private Vehicle Prescriptions / Home Meds: No Action famotidine 20 mg tablet 20 mg PO Q12H ondansetron 4 mg tablet,disintegrating 4 mg PO Q8H PRN (Reason: nausea and vomiting) dicyclomine 10 mg capsule 10 mg PO BID Print Language: Barbadian Instructions: Pancreatitis (ED) Referrals: [facility] [Primary Care Provider, Unknown] - As soon as possible
[2024-10-13 18:54] LABS: Cast Seen? NONE SEEN #/LPF (NONE SEEN); Crystals Seen? None Seen #/HPF (None Seen); Urine Culture Indicated NO
[2024-10-13] MEDS: HYDROMORPHONE HCL 1 MG/ML CARTRIDGE IV (20:12)
== END 2024-10-13 21:27 | disposition home or self-care (01) ==
PROVIDERS: Physician Assistant; Emergency Provider Emergency Medicine
DX: K86.1 Other chronic pancreatitis (principal); R10.84 Generalized abdominal pain; R11.2 Nausea with vomiting, unspecified
CPT/HCPCS: 36415; 80053; 81001; 82150; 83690; 85025; 96361; 96372; 96374; 96375; 99284; J1171; J2405

== ENCOUNTER 2024-11-02 19:26 | Emergency (ER) | payer OTHER, SELFPAY ==
[2024-11-02 19:33] VITALS: BP 131/93; PULSE 98; TEMP 36.6; O2SAT 97; BMI 21.9
--- OUTSIDE RECORDS SUMMARY | 2024-11-02 19:38 | XMS_ITS | CCD ---
Author Organization [facility] CliniSymt Care Team Providers Care Pot Liner Name Role Phone LiDarrickwa Unavailable LI, KEWA Unavailable Unavailable COPC SACHIN, GENERIC Unavailable Unavailable COPC SACHIN, GENERIC Unavailable Unavailable BESSIE NEGROROCKY Unavailable Unavailable LI, KEWA Unavailable Unavailable JOANA MENDES Unavailable Unavailable LI, KEWA Unavailable Unavailable ERROL WALTON Unavailable Unavaila ble LI, KEWA Unavailable Unavailable KEERTHI NGUYEN Unavailable Unavailable COPC SACHIN, GENERIC Unavailable Unavailable KEERTHI NGUYEN ANN Unavailable Unavailable LI, KEWA Unavailable Unavailable [facility], [facility] Unavailable Unav ailable EUGENIA SHELTON Unavailable Unavailable [facility], [facility] Unavailable Unav ailable Unavailable Primary Care Provider Unavailabl e MagdalenaAlexander Primary Care Provider Unavailable Primary Care Provider Unavailflorida e Marya Almonte Unavailable NON STAFF Primary Care Provider UnavailDO Keaton Thompson Emergency Provider [phone] SALMA Amor Emergency Provider [phone] SALMA Lopez Emergency Provider [phone] Pineda Troy MD Unavailable [facility], Other Primary Care Provi mathew NON STAFF Primary Care Provider UnavailMD Agustin Varela Emergency Provider [phone] DR TRI HANSON Consulting Unavailable ARIC CHAUDHARY Attending Unavailable ARIC CHAUDHARY Admitting [facility]available [facility] Unavailable ARIC CHAUDHARY Consulting Unavailable AGUSTIN MADRIGAL Consulting Unavailable YANNI FRASER Attending Unavailable YANNI FRASER Admitting Unavailable [facility] Primary Care Unavailable HEBERT MCPHERSON Consulting Unavailable DR RAJEEV KELLOGG Consulting Unavailable AMINATA, DR RAJEEV Chan Attending Unavailable AMINATA, DR RAJEEV Chan Admitting Unavailable [facility] Primary Care Unavailable GRECARLOS ., ANKIT BOYKIN Consulting Unavailabl e IGGY ., MONIK Attending Unavailable IGGY ., MONIK Admitting Unavailable GRECHNY ., ANKIT BOYKIN [facility] Unavailable ANNELIESE, NICK Consulting Unavailable JANUSZ ., ARIC Consulting Unavailable AGUSTIN HIGHTOWER Consulting Unavailable ROLAN EUCEDA Consulting Unavailable AMINATA, DR RAJEEV Chan Consulting Unavailable BRIANNA, DR SHARON Silveira [facility] RE[facility], DR SHARON Silveira [facility] Unavailable BRIANNA, DR SHARON Silveira Consulting [facility] HANS ., NAT Consulting Unavailable HANS ., NAT Consulting Unavailable PAY ., DR MACEDO Attending Unavailable PAY ., DR MACEDO Admitting Unavailable [facility] Primary Care Unavailable ANNELIESE, NICK Consulting Unavailable ANNELIESE, NICK Attending Unavailable ANNELIESE, NICK Admitting Unavailable [facility] Care Unavailable MILADIS BARRERA Consulting Unavailable JANUSZ ., ARIC Attending Unavailable JANUSZ ., ARIC Admitting Unavailable JANUSZ ., ARIC Consulting Unavailable [facility] Primary Care Unavailable ION KRUSE Consulting Unavailable YANNI FRASER Attending Unavailable YANNI FRASER Admitting Unavailable JANNY ., ANKIT BOYKIN [facility]ing [facility] Unavailable LYNNE PERDOMO Consulting Unavailable JANUSZ ., ARIC Attending Unavailable JANUSZ ., ARIC Admitting Unavailable [facility] Primary Care Unavailable JANUSZ ., ARIC Consulting Unavailable DIAB ., ELENITA Consulting Unavailable DIAB ., ELENITA Attending Unavailable DIAB ., ELENITA Admitting Unavailable [facility] Primary Care Unavailable PAY ., DR MACEDO Consulting Unavailable PAY ., DR MACEDO Attending Unavailable PAY ., DR MACEDO Admitting Unavailable [facility] Primary Care Unavailable ANNELIESE, NICK Consulting Unavailable ANNELIESE, NICK Attending Unavailable ANNELIESE, NICK Admitting Unavailable [facility] Primary Care Unavailable AGUSTIN HIGHTOWER Consulting Unavailable AMINATA, DR RAJEEV Chan Consulting Unavailable TANVIR ., DR GRANT Attending Unavailable HAY ., DR GRANT Admitting Unavailable [facility] Primary Care Unavailable HAY ., DR JUANITA Consulting Unavailable NON STAFF Primary Care Provider Unavailabl e Saffle, ALEA Serrano Emergency Provider [phone] NON STAFF Primary Care Provider Unavailabl e Saffle, FLEA MARKET SELLERZach Serrano Emergency Provider DO Rivera Lopez Emergency Provider MD Darrel Kellogg Emergency Provider [phone] Pineda Troy MD Unavailable [facility], Other Primary Care Provi mathew Woodrow ALEXANDER, Pineda T Unavailable STEVE, SOMASHEKAR G Attending Unavailabl e [facility], OTHER Primary Care Un available SELF, SELF Referring Unavailable STEVE, SOMASHEKAR G Attending Unavailabl e STEVE, SOMASHEKAR G Referring Unavailabl e [facility], OTHER Primary Care Un available STEVE, SOMASHEKAR G Referring Unavailabl e [facility], OTHER Primary Care Un available STEVE, SOMASHEKAR G Attending Unavailabl e Unavailable Primary Care Provider Unavailabl e Services, [facility] Primary Care Provider PETER ESCALERA Attending Unavailable TASHA ZAMORA Attending Unavailable TASHA ZAMORA Attending Unavailable Darrel Ferrer Attending Unavailable Ish Stokes Attending Unavailable Darrel Ferrer Attending Unavailable NON STAFF Primary Care Provider Unavailabl e Saffle Nicole COSBY Emergency Provider Darrel Ferrer Attending Unavailable Ish Stokes Attending Unavailable Andrew Ponce PA-C Emergency Provider [phone] SERVICES, [facility] Primary Care Unava ilable STEPHANIE MAHMOOD Attending Unavailable SERVICES, [facility] Primary Care Unava ilable TABITHA NEWELL Attending Unavailable SERVICES, [facility] Primary Care Unava ilable AGUSTIN MICHAEL Attending Unavailab le SERVICES, [facility] Primary Care Unava ilable VIVIAN TRINH Attending Unavailable SERVICES, [facility] Primary Care Unava ilable EMILIE JARVIS Attending Unavailable SERVICES, [facility] Primary Care Unava ilable TABITHA NEWELL Attending Unavailable SERVICES, [facility] Primary Care Unava ilable JYOTHI TRINH Attending Unavailable SERVICES, [facility] Unava ilable TABITHA NEWELL Attending Unavailable SERVICES, [facility] Unava ilable TABITHA NEWELL Attending Unavailable SERVICES, [facility] Unava ilable STEPHANIE MAHMOOD Attending Unavailable SERVICES, [facility] Unava ilable YANNI PARRA Attending Unavailable SERVICES, [facility] Unava ilable TABITHA NEWELL Attending Unavailable Darrel Ferrer Attending Unavailable Nicole Posadas Admitting Unavailable Nicole Posadas Attending Unavailable NON STAFF Primary Care Unavailable Andrew Ponce Admitting Unavailable Andrew Ponce Attending Unavailable NON STAFF Primary Care Unavailable Allergies Allergy Classification Reported Allergen(s) Allergy Type Date of Onset Reaction(s) Facility DOPamine Antagonists (1 source) Metoclopramide Drug Allergy 07-20-19 17 Anxiety [facility] Haloperidol (1 source) Haloperidol Drug Allergy 06-02-19 16 [facility] NSAIDs (1 source) Ibuprofen Drug Allergy 10-31-19 13 Hives, Swelling [facility] Opioid Agonists (2 sources) Morphine Drug Allergy 10-24-19 15 [facility] Penicillins (antibiotic) (1 source) Penicillins Drug Allergy 10-31-19 13 Swelling [facility] Work Phone: (20 sources) haloperidol; Translations: [HALOPERIDOL] Propensity to adverse reactions to drug 06-02-19 16 [facility] (20 sources) ibuprofen; Translations: [IBUPROFEN] Propensity to adverse reactions to drug 08-22-19 12 Hives, Swelling, Anaphylaxis, Other (See Comments), Shortness Of Breath [facility] (6 sources) metoclopramide; Translations: [METOCLOPRAMIDE HCL] Propensity to adverse reactions to drug 07-01-19 17 [facility] (6 sources) penicillin g; Translations: [PENICILLIN G] Propensity to adverse reactions to drug 07-25-19 15 Anaphylaxis [facility] (20 sources) traMADol; Translations: [TRAMADOL] Propensity to adverse reactions to drug 07-25-19 15 [facility] (20 sources) morphine; Translations: [MORPHINE] Drug Allergy 07-16-19 18 [facility] (12 sources) Enoxaparin; Translations: [ENOXAPARIN] Drug Allergy 08-23-19 20 Itching, Rash [place], [place] (8 sources) Haloperidol Drug Allergy 10-20-19 18 Swelling [place], [place] (18 sources) Penicillins; Translations: [PENICILLINS] Propensity to adverse reactions to drug 10-31-19 13 Anaphylaxis, Swelling [place], [place] (2 sources) Haloperidol; Translations: [Haldol] Drug Allergy 08-10-19 19 Unknown [facility] (20 sources) fentaNYL; Translations: [Fentanyl] Drug Allergy 09-13-[address] [facility] (15 sources) Ketorolac; Translations: [KETOROLAC] Drug Allergy 06-13-[address] [facility] (9 sources) Ketorolac Drug Allergy 12-17-19 22 Hives, Itching [facility] (14 sources) Metoclopramide; Translations: [METOCLOPRAMIDE] Drug Allergy 07-01-19 17 Anxiety [facility] (1 source) Ibuprofen Drug Allergy 01-09-20 13 [facility] (5 sources) Ketorolac; Translations: [Toradol] Drug Allergy [facility] (1 source) Morphine Drug Allergy 08-10-19 19 [facility] (1 source) Penicillins Drug allergy (disorder) 01-09-20 13 [facility] (1 source) traMADol Drug Allergy 01-09-20 13 [facility] (3 sources) Ketorolac trometamol Propensity to adverse reactions to drug 12-17-19 22 Hives, Itching [facility] (2 sources) Penicillins Propensity to adverse reactions to drug 10-31-19 13 Swelling [facility] Work Phone: (10 sources) Penicillins Propensity to adverse reactions to drug 10-10-19 18 Anaphylaxis [facility] (6 sources) Prochlorperazine; Translations: [PROCHLORPERAZINE] Drug Allergy 03-18-19 25 Hives, Other (See Comments) Bon [facility] (4 sources) Penicillin; Translations: [penicillin] Drug Allergy [facility] (3 sources) Prochlorperazine; Translations: [Compazine] Drug Allergy [facility] (1 source) Haloperidol Drug Allergy 10-29-19 [facility] (1 source) Ibuprofen Drug Allergy 10-29-19 [facility] (1 source) Morphine Drug Allergy 10-29-19 [facility] (1 source) Penicillins Drug allergy (disorder) 10-29-19 [facility] (1 source) Prochlorperazine Drug Allergy 10-29-19 [facility] (1 source) traMADol Drug Allergy 10-29-19 [facility] Medications Current Medications Medication Drug Class(es) Dates Sig (Normalized) Sig (Original) Acetaminophen (1 source) Start: 08-23-2019 acetaminophen (TYLENOL) tablet 650 mg acetaminophen 325 mg / HYDROcodone bitartrate 5 mg oral tablet (20 sources) Opioid Agonist Start: 10-28-2024 take 1 tablet by mouth every four to six hours as needed for pain Start: 10-19-2024 take 1 tablet by sachin th three times daily as needed for pain Hydrocodone-Acetaminophen 5-325 mg table t Active 1 TAB PO Three times daily as needed for pain 10 3 October 19, 2024 Complies with drug therapy Start: 08-08-2024 End: 08-11-2024 HYDROcodone-acetaminophen (N ORCO) 5-325 MG per tablet Indications: Abdominal pain, epigastric Take 1 tablet by mouth every 6 hours as needed for Pain for up to 3 days. Intended supply: 3 days. Take lowest dose possible to manage pain Max Daily Amount: 4 tablets 12 tablet 08/08/2024 08/11/2024 Active Start: 04-07-2024 End: 04-10-2024 HYDROcodone-acetaminophen (N ORCO) 5-325 MG per tablet Indications: Acute pancreatitis [...] by mouth every four to six hours as needed for pain Hydrocodone-Acetaminophen 5-325 mg Table t Discontinued 1 TAB PO EVERY 4-6 HOURS as needed for Pain 6 3 October 08, 2020 November 20, 2020 6:23pm Start: 04-19-2020 End: 05-31-2020 take 1 tablet by mouth every six hours as needed for pain Hydrocodone-Acetaminophen 5-325 mg table t Discontinued 1 TAB PO Q6H as needed for pain 10 April 19, 2020 May 31, 2020 3:51pm amylase [id number] unt / lipase 32604 unt / protease 52788 unt delayed release oral capsule (20 sources) Start: 12-23-2023 take 3 capsules by mouth twice daily at mealtime Pancreatic enzymes (Creon) 51739-96280-810899 units Cap DR Particles capsule Take 3 capsules by mouth 2 times daily with meals. 180 capsule 11 12/23/2023 Active Start: 05-11-2023 take 3 capsules by m outh twice daily at mealtime Pancreatic enzymes (Creon) 46495-[address] units [address] Particles capsule Take 3 capsules by mouth 2 times daily with meals. 180 capsule 11 05/11/2023 Active Start: 12-16-2021 End: 05-11-2023 take 12895-95805 capsules by mouth three times daily Pzkbgh-Dyghgqwy-Lfnuvzs (Creon) 24,000-76,000 -120,000 unit capsule,delayed release(DR/EC) Discontinued 2 CAP PO Three times daily December 19, 2021 12:00am April 11, 2023 10:24pm lipase-protease- amylase (CREON) 12,000-38,000 -60,000 unit capsule,delayed release(DR/EC) capsule Take 1 capsule (12,000 units of lipase total) by mouth in the morning and 1 capsule (12,000 units of lipase total) at noon and 1 capsule (12,000 units of lipase total) in the evening. Take with meals. 0 Active calcium chloride 0.0014 meq/ ml / potassium chloride 0.004 meq/ml / sodium chloride 0.103 meq/ml / sodium lactate 0.028 meq/ml injectable solution (2 sources) Start: 09-27-2024 1,000 mL, Intr aVENous, at 495.9 mL/hr, Administer over 121 Minutes, ONCE, On Thu09/27/24 at 1115, For 1 dose Start: 09-20-2024 End: 09-20-2024 1,000 mL, IntraVENous, at 49 5.9 mL/hr, Administer over 121 Minutes, ONCE, On Thu09/20/24 at 1915, For 1 dose ergocalciferol 1.25 mg oral capsule (8 sources) Provitamin D2 Compound Start: 05-11-2023 End: 07-06-2023 take 1 capsule by mouth every week Ergocalciferol 1.25 MG (72717 UT) capsule Take 1 capsule by mouth once a week. 8 capsule 05/11/2023 Active Start: 01-28-2022 End: 03-19-2022 take 1 capsule by mouth every week ergocalciferol 1.25 MG (00130 UT) capsule Take 1 capsule by mouth once a week for 8 doses. 8 capsule 01/28/2022 Active [place] (No Known Home Meds) (1 source) Start: 10-09-2021 [place] (No Kn own Home Meds) Active October 09, 2021 12:00am ondansetron 4 mg disintegrating oral tablet (20 sources) Serotonin-3 Receptor Antagonist Start: 10-28-2024 Start: 10-19-2024 take 1 tablet by [facility] three times daily Ondansetron 4 mg tablet,disintegrating Active 4 MG PO Three times daily 02 09October 19, 2024 12:00am Complies with drug therapy Start: 09-20-2024 End: 09-20-2024 4 mg, IntraVENous, ONCE, 1 d ose, On Thu09/20/24 at 1930 Start: 08-08-2024 End: 08-08-2024 4 mg, IntraVENous, ONCE, 1 d ose, On Thu08/08/24 at 1900 Start: 04-07-2024 End: 08-08-2024 take 1 tablet by mouth three times daily as needed for nausea ondansetron (ZOFRAN-ODT) 4 MG disintegrating tablet Take 1 tablet by mouth 3 times daily as needed for Nausea or Vomiting 21 tablet 08/08/2024 Active Start: 04-07-2024 End: 04-07-2024 4 mg, [...] On Eladia 01/07/24 at 1615 Start: 04-11-2023 End: 10-28-2024 Ondansetron 4 mg tablet,disi ntegrating Discontinued 4 MG PO every 6 to 8 hours as needed for Nausea April 18, 2023 1:00am October 28, 2024 2:34pm Start: 04-11-2023 End: 10-28-2024 Ondansetron Hcl 4 mg tablet Discontinued 4 MG PO every 6 to 8 hours as needed for nausea and vomiting April 11, 2023 1:00am October 28, 2024 2:34pm Start: 10-04-2021 End: 10-09-2021 take 1 tablet by mouth four times daily as needed for nausea and vomiting Ondansetron 4 mg tablet,disintegrating Discontinued 4 MG PO Four times daily as needed for nausea and vomiting October 04, 2021 12:00am October 09, 2021 2:19pm Start: 10-08-2020 End: 11-20-2020 Ondansetron 4 mg Tablet,Disi ntegrating Discontinued 4 MG PO every 6 to 8 hours as needed for Nausea October 08, 2020 12:00am November 20, 2020 6:23pm Start: 04-19-2020 End: 05-16-2020 take 1 tablet by mouth four times daily as needed for nausea and vomiting Ondansetron 4 mg tablet,disintegrating Discontinued 4 MG PO Four times daily as needed for nausea and vomiting April 19, 2020 1:00am May 16, 2020 9:59am Start: 03-28-2020 End: 05-16-2020 take 1 tablet by mouth every six hours as needed for nausea and vomiting Ondansetron 4 mg tablet,disintegrating Discontinued 4 MG PO Q6H as needed for nausea and vomiting March 28, 2020 1:00am May 16, 2020 [...] mg Start: 08-24-2017 End: 08-24-2017 ondansetron (ZOFRAN-ODT) dis integrating tablet 4 mg Start: 08-24-2017 End: 08-27-2017 [...] pantoprazole 40 mg delayed release oral tablet (6 sources) Proton Pump Inhibitor Start: 09-29-2023 take 1 tablet by mouth once daily before breakfast pantoprazole (PROTONIX) 40 MG tablet Take 1 tablet by mouth every morning (before breakfast) 90 tablet 1 09/29/2023 Active polyethylene glycol 3350 55194 mg powder for oral solution (1 source) Osmotic Laxative Start: 08-22-2019 17 g, Oral, D AILY PRN, Constipation, Starting 08/22/19 at 1627 First line therapy for constipation sodium chloride flush 0.9 % injection 3 mL (1 source) Start: 09-29-2023 sodium chlorid e flush 0.9 % injection 3 mL Completed/Discontinued Medications Medication Drug Class(es) Dates Sig (Normalized) Sig (Original) acetaminophen 325 mg / oxyCODONE hydrochloride 5 mg oral tablet (18 sources) Opioid Agonist Start: 10-04-2021 End: 10-09-2021 take 1 tablet by mouth every six hours as needed for pain Oxycodone-Acetamino phen (Percocet) 5-325 mg tablet Discontinued 1 TAB PO Q6H as needed for pain 10 October 04, 2021 October 09, 2021 2:19pm Start: 03-28-2020 End: 04-19-2020 take 1 tablet by mouth every six hours as needed for pain Oxycodone-Acetaminophen (Percocet) 5-325 mg tablet Discontinued 1 TAB PO Q6H as needed for pain 10 March 28, 2020 April 19, 2020 7:36pm Start: 08-24-2017 End: 08-24-2017 oxyCODONE-acetaminophen (PER COCET) 5-325 mg per tablet 1 tablet amitriptyline hydrochloride 25 mg oral tablet (20 sources) Tricyclic Antidepressant Start: 08-26-2021 End: 10-04-2021 take 1 tablet by mouth once daily Amitriptyline 25 mg tablet Discontinued 25 MG PO Daily September 25, 2021 12:00am October 04, 2021 3:17pm Start: 12-01-2019 amitriptyline (ELAVIL) 10 mg tablet Take 25 mg by mouth. 0 12/01/2019 Active Start: 12-01-2019 End: 05-11-2023 take 2.5 tablets by mouth at bedtime amitriptyline 10 MG tablet Take 2.5 tablets by mouth at bedtime. 30 tablet 12/01/2019 05/11/2023 Discontinued bisacodyl 10 mg rectal suppository (1 source) [...] 01-28-2022 bupivacaine (MARCAINE) injec tion 50 mg dicyclomine hydrochloride 10 mg oral capsule (20 sources) Anticholinergic Start: 08-08-2024 End: 08-08-2024 take 1 dose by mouth once 10 mg, Oral, ONCE, 1 dose, On Thu08/08/24 at 1900 Start: 03-27-2023 take 1 tablet by sachin th four times daily Dicyclomine 20 mg tablet Active 20 MG PO Four times daily April 18, 2023 1:00am Complies with drug therapy Start: 11-09-2022 End: 04-11-2023 take 1 capsule by mouth three times daily Dicyclomine 10 mg capsule Discontinued 10 MG PO Three times daily November 09, 2022 12:00am April 11, 2023 10:24pm Start: 09-25-2021 End: 10-04-2021 take 1 tablet by mouth four times daily Dicyclomine 20 mg tablet Discontinued 20 MG PO Four times daily September 25, 2021 12:00am October 04, 2021 3:17pm Start: 08-26-2021 take 1 tablet by sachin [...] as needed. 30 capsule 0 08/24/2017 Active 1 ml diphenhydrAMINE hydrochloride 50 mg/ml cartridge [...] 40 mg famotidine 20 mg oral tablet (17 sources) Histamine-2 Receptor Antagonist Start: 08-26-2021 End: 10-04-2021 take 1 tablet by mouth once daily Famotidine 20 mg tablet Discontinued 20 MG PO Daily September 25, 2021 12:00am October 04, 2021 3:17pm Start: 03-04-2018 End: 03-04-2018 famotidine (PEPCID) injectio n 20 mg Start: 05-14-2017 End: 05-15-2017 take 1 tablet by sachin th once daily famotidine (PEPCID) 20 MG tablet Take 20 mg by mouth daily . 0 Active famotidine (PEPCID) 20 MG/2ML 20 mg in sodium chloride (PF) 0.9 % 10 mL injection (1 source) Start: 08-08-2024 End: 08-08-2024 take 10 mL intravenously once 20 mg, IntraVENous, ONCE, 1 dose, On Thu08/08/24 at 1900, IV Push over minimum of 2 minutes - Dilute with 10 mL NS 2 ml fentaNYL 0.05 mg/ml injection (4 sources) Opioid Agonist Start: 03-26-2020 End: 03-26-2020 fentaNYL (SUBLIMAZE) injection 50 mcg Start: 08-22-2019 End: 08-22-2019 fentaNYL (SUBLIMAZE) injecti on 50 mcg Start: 03-04-2018 End: 03-04-2018 fentaNYL (SUBLIMAZE) inj syr pilar 50 mcg Start: 05-14-2017 End: 05-14-2017 fentaNYL (SUBLIMAZE) injecti on 50 mcg 0.5 ml HYDROmorphone hydrochloride 1 mg/ml prefilled syringe (18 sources) Opioid Agonist Start: 09-27-2024 End: 09-27-2024 take 0.5 mg by mouth once 0.5 mg, IntraVENous, ONCE, 1 dose, On Thu09/27/24 at 1115, If oral and IV narcotics ordered, use oral first and only use IV if oral is ineffective or cannot take oral. Do Not give oral and IV within 1 hour of each other unless specifically ordered. Start: 09-20-2024 End: 09-20-2024 take 0.5 mg by mouth once 0.5 mg, IntraVENous, ONCE, 1 dose, On Thu09/20/24 at 2045, If oral and IV narcotics ordered, use oral first and only use IV if oral is ineffective or cannot take oral. Do Not give oral and IV within 1 hour of each other unless specifically ordered. Start: 09-20-2024 End: 09-20-2024 take 0.5 mg by mouth once 0.5 mg, IntraVENous, ONCE, 1 dose, On Thu09/20/24 at 1915, If oral and IV narcotics ordered, use oral first and only use IV if oral is ineffective or cannot take oral. Do Not give oral and IV within 1 hour of each other unless specifically ordered. Start: 08-08-2024 End: 08-08-2024 take 0.5 mg by mouth once 0.5 mg, IntraVENous, ONCE, 1 dose, On Thu08/08/24 at 2000, If oral and IV narcotics ordered, use oral first and only use IV if oral is ineffective or cannot take oral. Do Not give oral and IV within 1 hour of each other unless specifically ordered. Start: 04-07-2024 End: 04-07-2024 1 mg, IntraVENous, ONCE, 1 d ose, On Thu04/07/24 at 1630 Start: 04-07-2024 End: 04-07-2024 1 mg, IntraVENous, ONCE, 1 d ose, On Thu04/07/24 at 1415 Start: 01-19-2024 End: 01-20-2024 0.5 [...] 30 mg mirtazapine 15 mg oral tablet (11 sources) Start: 12-01-2019 End: 12-16-2021 take 1 tablet by mouth at bedtime Mirtazapine 15 mg Tablet Discontinued 15 MG PO Bedtime March 28, [...] Discontinued oxyCODONE hydrochloride 5 mg oral tablet (9 sources) Opioid Agonist Start: 03-22-2022 End: 04-11-2023 take 1 tablet by mouth every four to six hours as needed for pain Oxycodone 5 mg tablet Discontinued 5 MG PO EVERY 4-6 HOURS as needed for pain 12 09March 22, 2022 April 11, 2023 10:24pm Start: 01-28-2022 End: 01-28-2022 oxyCODONE (ROXICODONE) table [...] injection every six hours a s needed 1 ml promethazine hydrochloride 25 mg/ml injection (20 sources) Phenothiazine Start: 09-27-2024 End: 09-27-2024 inject 1 dose by intramuscular injection once 25 mg, IntraMUSCular, ONCE, 1 dose, On Thu09/27/24 at 1115, Only to be given as IM injection. Start: 09-20-2024 End: 09-27-2024 take 1 tablet by mouth four times daily as needed for nausea promethazine (PHENERGAN) 25 MG tablet Take 1 tablet by mouth 4 times daily as needed for Nausea 20 tablet 09/20/2024 09/27/2024 Active Start: 09-29-2023 End: 10-06-2023 take 1 tablet by mouth every six hours as needed for nausea promethazine (PHENERGAN) 25 MG tablet Take 1 tablet by mouth every 6 hours as needed for Nausea 12 tablet 0 09/29/2023 10/06/2023 Active Start: 11-09-2022 End: 04-11-2023 take 1 tablet by mouth three times daily as needed for nausea and vomiting Promethazine 25 mg tablet Discontinued 25 MG PO Three times daily as needed for nausea and vomiting November 09, 2022 12:00am April 11, 2023 10:24pm Start: 12-19-2021 End: 04-11-2023 take 1 tablet by mouth every six hours as needed for nausea Promethazine 25 mg tablet Discontinued 25 MG PO Q6H as needed for Nausea December 19, 2021 12:00am April 11, 2023 10:24pm Start: 09-25-2021 End: 10-04-2021 take 1 tablet by mouth four times daily as needed for nausea and vomiting Promethazine 25 mg tablet Discontinued 25 MG PO Four times daily as needed for nausea and vomiting September 25, 2021 12:00am October 04, 2021 3:17pm Start: 08-11-2021 End: 09-25-2021 take 1 tablet by mouth every six hours as needed for nausea Promethazine 25 mg tablet Discontinued 25 MG PO Q6H as needed for Nausea August 11, 2021 12:00am September 25, 2021 8:51pm Start: 05-16-2020 End: 05-31-2020 take 1 tablet by mouth every four to six hours as needed for nausea Promethazine (Phenergan) 12.5 mg Tablet Discontinued 12.5 MG PO EVERY 4-6 HOURS as needed for Nausea May 16, 2020 1:00am May 31, 2020 3:51pm Start: 08-22-2019 promethazine ( PHENERGAN) tablet 12.5 mg Start: 08-22-2019 End: 08-22-2019 promethazine (PHENERGAN) inj ection 12.5 mg Start: 07-05-2019 End: 03-28-2020 take 1 tablet by mouth every six hours as needed for nausea and vomiting Promethazine 25 mg tablet Discontinued 25 MG PO Q6H as needed for nausea and vomiting July 05, 2019 12:00am March 28, 2020 4:50pm Start: 08-24-2017 End: 08-24-2017 promethazine (PHENERGAN) suppository 25 mg End: 05-14-2017 take 1 tablet by mouth every six hours as needed promethazine (PHENERGAN) 25 MG tablet Take 25 mg by mouth every 6 (six) hours as needed for nausea. 05/14/2017 Discontinued 50 ml sodium chloride 9 mg/m l injection (17 sources) Start: 08-08-2024 End: 08-08-2024 1,000 mL (17.6 mL/kg), IntraVENous, at 495.9 mL/hr, Administer over 121 Minutes, ONCE, On Thu08/08/24 at 1900, For 1 dose Start: 04-07-2024 End: 04-07-2024 1,000 mL (17.6 mL/kg), IntraVENous, at 1,000 mL/hr, Administer over 1 Hours, ONCE, On Thu25 at 1415, For 1 dose Start: 01-07-2024 [...] 03-04-2018 End: 03-04-2018 sodium chloride 0.9% (NS) dayo jannet 1,000 mL Start: 08-24-2017 End: 08-24-2017 sodium chloride (PF) (NS) fl ush 5 mL Start: 06-09-2017 End: 06-09-2017 sodium chloride 0.9% (NS) dayo jannet 1,000 mL Start: 06-09-2017 End: 06-09-2017 [...] Translations: [Epigastric pain] Onset: 5 11-30-2014 Episodic Comment on above: Problem List clean-u p per request of Phys. EHR Cmte Administrative/social admission (8 sources) Drug seeking behavior ; Translations: [Malingerer [conscious simulation]] 10-09-2021 Episodic Comment on above: Problem List clean-u p per request of Phys. 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 EHR Cmte Other nervous system disorders (1 source) Chronic pain; Translations: [Other chronic pain] Chronic Other nervous system disorders (2 sources) Other chronic pain; Translations: [OTHER CHRONIC PAIN] Onset: 2 Chronic Other nutritional; endocrine; and metabolic disorders (3 sources) Hypercalcemia; Translations: [Hypercalcemia] 04-18-2023 Chronic Pancreatic disorders (20 sources) Chronic pancreatitis; Translations: [Other chronic pancreatitis] Onset: 5 Resolved: 6 06-30-2016 Chronic Comment on above: Problem List clean-u p per request of Phys. EHR Cmte Pancreatic disorders (not diabetes) (6 sources) Acute [...] Episodic/Chronic Complication of device; implant or graft (9 [...] unspecified] Onset: 06-25-2015 Resolved: 06-28-2015 06-28-2015 Chronic Disorders of teeth and jaw (3 sources) Periapical abscess without sinus; Translations: [Other specified disorders of teeth and supporting structures] Onset: 07-20-2024 Episodic Fluid and electrolyte disorders (2 sources) Dehydration; Translations: [Hypokalemia] Onset: 07-23-2021 09-29-2023 Episodic Immunizations and screening for infectious disease (1 source) Contact with and (suspected) exposure to other viral communicable diseases Onset: 03-19-2021 Resolved: 03-19-2021 Episodic Nausea and vomiting (20 sources) Nausea and vomiting; Translations: [Nausea with vomiting, unspecified] Onset: 08-30-2014 Resolved: 06-09-2016 11-30-2014 Episodic Comment on above: Problem List clean-u p per request of Phys. EHR Cmte Noninfectious gastroenteritis (2 sources) Noninfective gastroenteritis and colitis, unspecified; Translations: [Noninfective gastroenteritis and colitis, unspecified] Onset: 08-24-2017 Episodic Other disorders of stomach and duodenum (9 sources) Cyclical vomiting syndrome; Translations: [Cyclical vomiting syndrome unrelated to migraine] Onset: 06-21-2015 06-21-2015 Episodic Other gastrointestinal disorders (20 sources) Diarrhea; Translations: [Diarrhea, unspecified] Onset: 06-30-2015 Resolved: 04-24-2016 07-06-2019 Episodic Comment on above: Problem List clean-u p per request of Phys. EHR Cmte Other gastrointestinal disorders (3 sources) Diarrhea, unspecified; [...] pancreatitis] Onset: 06-05-2015 Resolved: 06-09-2016 06-30-2016 Episodic Comment on above: Problem List clean-u p per request of Phys. EHR Cmte Residual codes; unclassified (9 sources) Tobacco use [...] zymatic activity/volume] in Serum or PlasmaOrdered By: Andrew Ponce on 10-28-2024 ALT [Catalytic activity/Vol] 10 U/L Normal 7-52 [facility] Comment on above: Performed By: #### C BC, LIPASE, BMP, HEPATIC #### [facility] [address] [place] [address] [place] Albumin [Mass/volume] in Ser um or Plasma by Bromocresol green (BCG) dye binding methoOrdered By: Andrew Ponce on 10-28-2024 Albumin BCG dye [Mass/Vol] 4.5 g/dL 3.5-5.7 [facility] Alkaline phosphatase [Enzyma tic activity/volume] in Serum or PlasmaOrdered By: Andrew Ponce on 10-28-2024 ALP [Catalytic activity/Vol] 136 U/L High 34-104 [facility] Comment on above: Performed By: #### C BC, LIPASE, BMP, HEPATIC #### [facility] [address] [place] [address] [place] Appearance of UrineOrdered B y: Andrew Ponce on 10-28-2024 Appearance (U) Clear Normal Clear [facility] Comment on above: Order Comment: Name Collection Type:: Voided Performed By: #### C BC, LIPASE, BMP, HEPATIC #### [facility] [address] Aspartate aminotransferase [ Enzymatic activity/volume] in Serum or PlasmaOrdered By: Andrew Ponce on 10-28-2024 AST [Catalytic activity/Vol] 18 U/L Normal 13-39 [facility] Comment on above: Performed By: #### C BC, LIPASE, BMP, HEPATIC #### [address] Bacteria [Presence] in Urine by AutomatedOrdered By: Andrew Ponce on 10-28-2024 Bacteria Auto Ql (U) Rare [HPF] None Seen [facility] Basic Metabolic Panelon 10-08 Creatinine Clr Calc Pharmacy 59.85 Normal [facility] Comment on above: Performed By: #### C BC, LIPASE, BMP, HEPATIC #### [address] GFR/1.73 sq M.predicted MDRD (S/P/Bld) [Vol rate/Area] mL/min/{1.73_m2} Normal [facility] Comment on above: Performed By: #### C BC, LIPASE, BMP, HEPATIC #### [address] Basophils [#/volume] in Bloo d by Automated countOrdered By: Andrew Ponce on 10-28-2024 Basophils (Bld) [#/Vol] 0.1 10*3/uL Normal 0.0-0.2 [facility] Comment on above: Result Comment: PERF ORMED BY: [place] [address] PATHOLOGIST RF TECHNICIAN TARA BENSON M.D. Performed By: #### C BC, LIPASE, BMP, HEPATIC #### [place] [address] [place] Basophils/100 leukocytes in Blood by Automated countOrdered By: Andrew Ponce on 10-28-2024 Basophils/100 WBC (Bld) 1.0 % Normal . [facility] Comment on above: Performed By: #### C BC, LIPASE, BMP, HEPATIC #### [address] Bilirubin Test strip Ql (U)O rdered By: Andrew Ponce on 10-28-2024 Bilirubin Ql (U) Negative Negative [facility] Bilirubin.direct [Mass/volum e] in Serum or PlasmaOrdered By: Andrew Ponce on 10-28-2024 Bilirubin.direct [Mass/Vol] 0.00 mg/dL Low 0.03-0.18 [facility] Comment on above: If the DBIL is less than 0.1, IBIL is not able to becalculated. Bilirubin.total [Mass/volume ] in Serum or PlasmaOrdered By: Andrew Ponce on 10-28-2024 Bilirubin [Mass/Vol] 0.3 mg/dL Normal 0.3-1.0 [facility] Comment on above: Performed By: #### C BC, LIPASE, BMP, HEPATIC #### [facility] [address] [place] [id number] [facility] [place] CT abdomen pelvis w conon CT abdomen pelvis w con [facility] [address] [place] [address] [place] [address] CT Scan Report Signed Patient: Chioma Arciniega MR#: [id number] : 1970 Acct:[id number] Age/Sex: 54 / F ADM Date: 10/28/24 Loc: ER Room: Type: [facility] ER Attending Dr: Copies to: Andrew Ponce PA-C Ordering Provider: Andrew Ponce PA-C Date of Service: 10/28/24 CT/CT abdomen pelvis w con: Chronic pancreatitis CT Abdomen and Pelvis withcontrast TECHNIQUE: Axial imaging with 2-D reconstruction.90 cc of Isovue-300. The CT exam was performed using one or more the following dose reduction techniques: Automated exposure control, adjustment of the MA and/or Kv according to patient size, or use of the iterative reconstruction technique. COMPARISON: 10/19/2024 History: Chronic pancreatitis. Nausea vomiting and diarrhea. LIMITATIONS: None LOWER THORAX Unremarkable LIVER: Unremarkable GALLBLADDER: Cholecystectomy clips identified. BILE DUCTS: No dilatation SPLEEN: Unremarkable PANCREAS: Unremarkable ADRENAL GLANDS: 12 mm left adrenal nodule unchanged KIDNEYS:Unremarkable AORTA: No abdominal aortic aneurysm identified. RETROPERITONEUM: No significant retroperitoneal abnormalities identified. MESENTERY:Unremarkable STOMACH:Unremarkable SMALL BOWEL: The small bowel loops are nondistended. APPENDIX: The appendix is normal. COLON: Unremarkable URINARY BLADDER: Urinary bladder is unremarkable. REPRODUCTIVE SYSTEM: The uterus is absent. PNEUMOPERITONEUM: None PERITONEAL FLUID:None BONY STRUCTURES: Extensive lumbar degenerative changes ABDOMINAL WALL: Unremarkable CT/CT abdomen pelvis w con IMPRESSION: No acute findings. Impression dictated by: Cruzito Mendieta M.D. 10/28/2024 4:38 PM Dictation Location: [facility]--20 Transcribed By: [facility] 10/28/24 1638 Dictated By: Cruzito Mendieta DO 10/28/24 1636 Signed By: 10/28/24 1638 Normal [facility] Calcium [Mass/volume] in Ser um or PlasmaOrdered By: Andrew Ponce on 10-28-2024 Calcium [Mass/Vol] 10.2 mg/dL Normal 8.6-10.3 [facility] Comment on above: Performed By: #### C BC, LIPASE, BMP, HEPATIC #### [facility] [address] Carbon dioxide, total [Moles /volume] in Serum or PlasmaOrdered By: Andrew Ponce on 10-28-2024 CO2 [Moles/Vol] 30.4 mmol/L Normal 21.0-31.0 [facility] Comment on above: Performed By: #### C BC, LIPASE, BMP, HEPATIC #### [facility] [address] [place] [address] [place] Chloride [Moles/volume] in S erika or PlasmaOrdered By: Andrew Ponce on 10-28-2024 Chloride [Moles/Vol] 104 mmol/L Normal 98-107 [facility] Comment on above: Performed By: #### C BC, LIPASE, BMP, HEPATIC #### [facility] [address] [place] [address] [place] Color of Urine by AutoOrdere d By: Andrew Ponce on 10-28-2024 Color (U) Light-yellow Normal Yellow [facility] Comment on above: Order Comment: Name Collection Type:: Voided Performed By: #### C BC, LIPASE, BMP, HEPATIC #### [address] Complete Blood Count Auto Di ffon 10-28-2024 Mean Corpuscular HGB Conc 34.3 g/dL Normal 32.0-35.0 [facility] Comment on above: Performed By: #### C BC, LIPASE, BMP, HEPATIC #### [address] Monocytes/100 WBC (Bld) 19.51 % Normal 0.00-20.00 [facility] Comment on above: Performed By: #### C BC, LIPASE, BMP, HEPATIC #### [address] NRBC% 0.0 /100{WBC} Normal 0-0.5 [facility] Comment on above: Performed By: #### C BC, LIPASE, BMP, HEPATIC #### [address] White Blood Count 8.6 [CFU]/mL Normal 3.8-11.6 [facility] Comment on above: Performed By: #### C BC, LIPASE, BMP, HEPATIC #### [address] Creatinine [Mass/volume] in Serum or PlasmaOrdered By: Andrew Ponce on 10-28-2024 Creatinine [Mass/Vol] 0.84 mg/dL Normal 0.60-1.20 [facility] Comment on above: Performed By: #### C BC, LIPASE, BMP, HEPATIC #### [address] Dipstick and Microscopicon 0 10-28-2024 Bacteria,Urine Rare Normal None Seen [facility] Comment on above: Order Comment: Name Collection Type:: Voided Performed By: #### C BC, LIPASE, BMP, HEPATIC #### [address] Bilirubin,Urine Negative Normal Negative [facility] Comment on above: Order Comment: Name Collection Type:: Voided Performed By: #### C BC, LIPASE, BMP, HEPATIC #### [address] [place] [address] [place] Glucose Ql (U) Normal Normal Normal [facility] Comment on above: Order Comment: Name Collection Type:: Voided Performed By: #### C BC, LIPASE, BMP, HEPATIC #### [facility] [address] [place] [address] [place] Hyaline Casts,Urine None Normal 0-8 [facility] Comment on above: Order Comment: Name Collection Type:: Voided Performed By: #### C BC, LIPASE, BMP, HEPATIC #### [place] [address] [place] Mucus,Urine Rare Normal [facility] Comment on above: Order Comment: Name Collection Type:: Voided Result Comment: PERF ORMED BY: [place] [address] PATHOLOGIST RF TECHNICIAN TARA BENSON M.D. Performed By: #### C BC, LIPASE, BMP, HEPATIC #### [address] Nitrite,Urine Negative Normal Negative [facility] Comment on above: Order Comment: Name Collection Type:: Voided Performed By: #### C BC, LIPASE, BMP, HEPATIC #### [address] Occult Blood,Urine 1+ Normal Negative [facility] Comment on above: Order Comment: Name Collection Type:: Voided Result Comment: PERF ORMED BY: [place] [address] PATHOLOGIST RF TECHNICIAN TARA BENSON M.D. Performed By: #### C BC, LIPASE, BMP, HEPATIC #### [address] Protein,Urine Negative Normal Negative [facility] Comment on above: Order Comment: Name Collection Type:: Voided Performed By: #### C BC, LIPASE, BMP, HEPATIC #### [address] RBC,Urine 1-2 Normal 0-4 [facility] Comment on above: Order Comment: Name Collection Type:: Voided Performed By: #### C BC, LIPASE, BMP, HEPATIC #### [address] Specificy [place],Urine 1.017 Normal 1.001-1.03 0 [facility] Comment on above: Order Comment: Name Collection Type:: Voided Performed By: #### C BC, LIPASE, BMP, HEPATIC #### [address] Squamous Epithelial Cell,Urine 1-2 Normal 0-2 [facility] Comment on above: Order Comment: Name Collection Type:: Voided Performed By: #### C BC, LIPASE, BMP, HEPATIC #### [address] Urobilinogen,Urine Normal Normal Normal [facility] Comment on above: Order Comment: Name Collection Type:: Voided Performed By: #### C BC, LIPASE, BMP, HEPATIC #### [address] WBC,Urine 1-2 Normal 0-4 [facility] Comment on above: Order Comment: Name Collection Type:: Voided Performed By: #### C BC, LIPASE, BMP, HEPATIC #### [address] Eosinophils [#/volume] in Bl ood by Automated countOrdered By: Andrew Ponce on 10-28-2024 Eosinophils (Bld) [#/Vol] 0.1 10*3/uL Normal 0.0-0.45 [facility] Comment on above: Performed By: #### C BC, LIPASE, BMP, HEPATIC #### [place] [address] [place] Eosinophils/100 leukocytes i n Blood by Automated countOrdered By: Andrew Ponce on 10-28-2024 Eosinophils/100 WBC (Bld) 1.5 % Normal . [facility] Comment on above: Performed By: #### C BC, LIPASE, BMP, HEPATIC #### [place] [address] [place] Epithelial cells.squamous [# /area] in Urine sediment by Automated countOrdered By: Andrew Ponce on 10-28-2024 Epithelial cells.squamous Auto (Urine sed) [#/Area] 1-2 [HPF] 0-2 [facility] Erythrocyte distribution wid th [Ratio] by Automated countOrdered By: Andrew Ponce on 10-28-2024 Erythrocyte distribution width (RBC) [Ratio] 13.6 % Normal 11.9-15.3 [facility] Comment on above: Performed By: #### C BC, LIPASE, BMP, HEPATIC #### [facility] [address] Erythrocytes [#/area] in Uri ne sediment by Automated countOrdered By: Andrew Ponce on 10-28-2024 RBC Auto (Urine sed) [#/Area] 1-2 [HPF] 0-4 [facility] Erythrocytes [#/volume] in B lood by Automated countOrdered By: Andrew Ponce on 10-28-2024 RBC (Bld) [#/Vol] 4.30 10*6/uL Normal 3.60-5.00 [facility] Comment on above: Performed By: #### C BC, LIPASE, BMP, HEPATIC #### [facility] [address] Glomerular filtration rate [ Volume Rate/Area] in Serum, Plasma or Blood by CreatinineOrdered By: Andrew Ponce on 10-28-2024 Glomerular filtration rate [Volume Rate/Area] in Serum, Plasma or Blood by Creatinine > 60.0 mL/Min [facility] Glucose [Mass/volume] in Ser um or PlasmaOrdered By: Andrew Ponce on 10-28-2024 Glucose [Mass/Vol] 95 mg/dL Normal 70-100 [facility] Comment on above: ADA recommended refe rence rangeRandom Glucose Reference Range is dependent on time and content of last meal. Glucose of more than 200 mg/dL in a nonstressed, ambulatory subject supports the diagnosis of Diabetes Mellitus. Result Comment: [place] Glucose Reference Range is dependent on time and content of last meal. Glucose of more than 200 mg/dL in a nonstressed, ambulatory subject supports the diagnosis of Diabetes Mellitus. ADA recommended reference range Performed By: #### C BC, LIPASE, BMP, HEPATIC #### [address] Glucose [Mass/volume] in Uri ne by Test stripOrdered By: Andrew Ponce on 10-28-2024 Glucose Test strip (U) [Mass/Vol] Normal mg/dL Normal [facility] Hematocrit [Volume Fraction] of Blood by Automated countOrdered By: Andrew Ponce on 10-28-2024 Hematocrit (Bld) [Volume fraction] 42.2 % Normal 34.0-46.4 [facility] Comment on above: Performed By: #### C BC, LIPASE, BMP, HEPATIC #### [address] Hemoglobin Test strip Ql (U) Ordered By: Andrew Ponce on 10-28-2024 Hemoglobin Ql (U) 1+ High Negative [facility] Hemoglobin [Mass/volume] in BloodOrdered By: Andrew Ponce on 10-28-2024 Hemoglobin (Bld) [Mass/Vol] 14.5 g/dL Normal 11.8-15.4 [facility] Comment on above: Performed By: #### C BC, LIPASE, BMP, HEPATIC #### [address] Hepatic Panelon 10-28-2024 Albumin [Mass/Vol] 4.5 g/dL Normal 3.5-5.7 [facility] Comment on above: Performed By: #### C BC, LIPASE, BMP, HEPATIC #### [address] Bilirubin,Indirect 0.3 mg/dL Normal [facility] Comment on above: Performed By: #### C BC, LIPASE, BMP, HEPATIC #### [address] Bilirubin.indirect [Mass/Vol] 0.00 mg/dL Low 0.03-0.18 [facility] Comment on above: Result Comment: If t he DBIL is less than 0.1, IBIL is not able to be calculated. Performed By: #### C BC, LIPASE, BMP, HEPATIC #### [facility] [address] [place] [address] [place] Hyaline casts [#/area] in Ur ine sediment by Automated countOrdered By: Andrew Ponce on 10-28-2024 Hyaline casts Auto (Urine sed) [#/Area] None [LPF] 0-8 [facility] Ketones [Presence] in Urine by Test stripOrdered By: Andrew Ponce on 10-28-2024 Ketones Ql (U) Negative Normal Negative [facility] Comment on above: Order Comment: Name Collection Type:: Voided Performed By: #### C BC, LIPASE, BMP, HEPATIC #### [address] Leukocyte esterase [Presence ] in Urine by Test stripOrdered By: Andrew Ponce on 10-28-2024 Leukocyte esterase Test strip Ql (U) Negative Normal Negative [facility] Comment on above: Order Comment: Name Collection Type:: Voided Performed By: #### C BC, LIPASE, BMP, HEPATIC #### [place] [address] [place] Leukocytes [#/area] in Urine sediment by Automated countOrdered By: Andrew Ponce on 10-28-2024 WBC Auto (Urine sed) [#/Area] 1-2 [HPF] 0-4 [facility] Leukocytes [#/volume] correc aurelia for nucleated erythrocytes in Blood by Automated counOrdered By: Andrew Ponce on 10-28-2024 WBC corrected for nucl RBC Auto (Bld) [#/Vol] 8.6 10*3/uL 3.8-11.6 [facility] Leukocytes [#/volume] in Blo od by Automated countOrdered By: Andrew Ponce on 10-28-2024 WBC (Bld) [#/Vol] 8.6 10*3/uL Normal 3.8-11.6 [facility] Comment on above: Performed By: #### C BC, LIPASE, BMP, HEPATIC #### [place] [address] [place] Lipase [Enzymatic activity/v olume] in Serum or PlasmaOrdered By: Andrew Ponce on 10-28-2024 Lipase [Catalytic activity/Vol] 140.0 U/L High 11.0-82.0 [facility] Comment on above: Result Comment: PERF ORMED BY: [place] [address] PATHOLOGIST RF TECHNICIAN TARA BENSON M.D. Performed By: #### C BC, LIPASE, BMP, HEPATIC #### [address] Lymphocytes [#/volume] in Bl ood by Automated countOrdered By: Andrew Ponce on 10-28-2024 Lymphocytes (Bld) [#/Vol] 2.5 10*3/uL Normal 1.00-4.8 [facility] Comment on above: Performed By: #### C BC, LIPASE, BMP, HEPATIC #### [address] Lymphocytes/100 leukocytes i n Blood by Automated countOrdered By: Andrew Ponce on 10-28-2024 Lymphocytes/100 WBC (Bld) 28.8 % Normal . [facility] Comment on above: Performed By: #### C BC, LIPASE, BMP, HEPATIC #### [address] MCH [Entitic mass] by Automa aurelia countOrdered By: Andrew Ponce on 10-28-2024 MCH (RBC) [Entitic mass] 33.7 pg Normal 24.7-34.3 [facility] Comment on above: Performed By: #### C BC, LIPASE, BMP, HEPATIC #### [address] MCHC Auto (RBC) [Mass/Vol]Or dered By: Andrew Ponce on 10-28-2024 MCHC (RBC) [Mass/Vol] 34.3 g/dL 32.0-35.0 [facility] MCV [Entitic volume] by Auto mated countOrdered By: Andrew Ponce on 10-28-2024 MCV (RBC) [Entitic vol] 98.2 fL Normal 80-100 [facility] Comment on above: Performed By: #### C BC, LIPASE, BMP, HEPATIC #### [place] [address] [place] Monocyte distribution width [Entitic volume] in Blood by AutomatedOrdered By: Andrew Ponce on 10-28-2024 Monocyte distribution width Auto (Bld) [Entitic vol] 19.51 % 0.00-20.00 [facility] Monocytes [#/volume] in Bloo d by Automated countOrdered By: Andrew Ponce on 10-28-2024 Monocytes (Bld) [#/Vol] 0.8 10*3/uL Normal 0.0-0.8 [facility] [facility] Comment on above: Performed By: #### C BC, LIPASE, BMP, HEPATIC #### [address] Monocytes/100 leukocytes in Blood by Automated countOrdered By: Andrew Ponce on 10-28-2024 Monocytes/100 WBC (Bld) 9.4 % Normal . [facility] Comment on above: Performed By: #### C BC, LIPASE, BMP, HEPATIC #### [address] Mucus [Presence] in Urine by AutomatedOrdered By: Andrew Ponce on 10-28-2024 Mucus Auto Ql (U) Rare [LPF] [facility] Neutrophils [#/volume] in Bl ood by Automated countOrdered By: Andrew Ponce on 10-28-2024 Neutrophils (Bld) [#/Vol] 5.1 10*3/uL Normal 1.8-7.7 [facility] Comment on above: Performed By: #### C BC, LIPASE, BMP, HEPATIC #### [place] [address] [place] Neutrophils/100 leukocytes i n Blood by Automated countOrdered By: Andrew Ponce on 10-28-2024 Neutrophils/100 WBC (Bld) 59.3 % Normal . [facility] Comment on above: Performed By: #### C BC, LIPASE, BMP, HEPATIC #### [address] Nitrite Test strip Ql (U)Ord ered By: Andrew Ponce on 10-28-2024 Nitrite Ql (U) Negative Negative [facility] No Panel InformationOrdered By: Andrew Ponce on 10-28-2024 Pharmacy Creatinine Clearance (Chem 59.85 [facility] Nucleated erythrocytes [Pres ence] in Blood by Automated countOrdered By: Andrew Ponce on 10-28-2024 Nucleated RBC Auto Ql (Bld) 0.0 /100{WBC} 0-0.5 [facility] Platelet mean volume [Entiti c volume] in Blood by Automated countOrdered By: Andrew Ponce on 10-28-2024 Platelet mean volume (Bld) [Entitic vol] 8.0 fL Normal 6.3-10.7 [facility] Comment on above: Performed By: #### C BC, LIPASE, BMP, HEPATIC #### [facility] [address] [place] [address] Platelets [#/volume] in Bloo d by Automated countOrdered By: Andrew Ponce on 10-28-2024 Platelets (Bld) [#/Vol] 258 10*3/uL Normal 150-450 [facility] Comment on above: Performed By: #### C BC, LIPASE, BMP, HEPATIC #### [facility] [address] Potassium [Moles/volume] in Serum or PlasmaOrdered By: Andrew Ponce on 10-28-2024 Potassium [Moles/Vol] 3.7 mmol/L Normal 3.5-5.1 [facility] Comment on above: Performed By: #### C BC, LIPASE, BMP, HEPATIC #### [facility] [address] Protein Test strip (U) [Mass /Vol]Ordered By: Andrew Ponce on 10-28-2024 Protein (U) [Mass/Vol] Negative Negative [facility] Protein [Mass/volume] in Ser um or PlasmaOrdered By: Andrew Ponce on 10-28-2024 Protein [Mass/Vol] 7.3 g/dL Normal 6.4-8.9 [facility] Comment on above: Performed By: #### C BC, LIPASE, BMP, HEPATIC #### [facility] [address] [place] [address] Serum globulin measurement b y calculation (mass/volume)Ordered By: Andrew Ponce on 10-28-2024 Globulin (S) [Mass/Vol] 2.8 g/dL [facility] Comment on above: Performed By: #### C BC, LIPASE, BMP, HEPATIC #### [address] Serum or plasma albumin/glob ulin mass ratioOrdered By: Andrew Ponce on 10-28-2024 Albumin/Globulin [Mass ratio] 1.6 {ratio} [facility] Comment on above: Performed By: #### C BC, LIPASE, BMP, HEPATIC #### [address] Serum or plasma anion gap de terminationOrdered By: Andrew Ponce on 10-28-2024 Anion gap [Moles/Vol] 8.3 mmol/L Normal 6.0-15.0 [facility] Comment on above: Performed By: #### C BC, LIPASE, BMP, HEPATIC #### [address] Serum or plasma non-glucuron idated bilirubin measurement (mass/volume)Ordered By: Andrew Ponce on 10-28-2024 Bilirubin.indirect [Mass/Vol] 0.3 mg/dL [facility] Sodium [Moles/volume] in Ser um or PlasmaOrdered By: Andrew Ponce on 10-28-2024 Sodium [Moles/Vol] 139 mmol/L Normal 136-145 [facility] Comment on above: Performed By: #### C BC, LIPASE, BMP, HEPATIC #### [address] Specific gravity Test strip (U) [Rel density]Ordered By: Andrew Ponce on 10-28-2024 Specific gravity (U) [Rel density] 1.017 1.001-1.03 0 [facility] Urea nitrogen [Mass/volume] in Serum or PlasmaOrdered By: Andrew Ponce on 10-28-2024 Urea nitrogen [Mass/Vol] 10 mg/dL Normal 7-25 [facility] Comment on above: Performed By: #### C BC, LIPASE, BMP, HEPATIC #### [facility] [address] [id number] [facility] Urobilinogen Test strip (U) [Mass/Vol]Ordered By: Andrew Ponce on 10-28-2024 Urobilinogen (U) [Mass/Vol] Normal mg/dL Normal [facility] pH of Urine by Test stripOrd ered By: Andrew Ponce on 10-28-2024 pH (U) 6.0 [pH] Normal 5.0-9.0 [facility] Comment on above: Order Comment: Name Collection Type:: Voided Performed By: #### C BC, LIPASE, BMP, HEPATIC #### [facility] [address] [id number] [facility] ED Note-Physicianon 10-26-19 ED Note-Physician ED Note-Physician Basic Information Time Seen: Marco A Aguilar PA-C 10/24/2024 16:36 Chief Complaint x2 days of pancreatitis flare up with n, v, d. History of Present Illness A 54-year-old female reports emergency department with concerns of acute abdominal pain. Reports having 2 days of pancreatitis flareup. Reports that she has had flareup. Reports nausea vomiting and diarrhea present on the last 2 days. Reports does not drink anymore. Of the pain upper epigastric region. Reports has a hard time keeping things down. Reports multiple medication allergies. Reports this feels like her typical flare. She denies any urinary symptoms. Denies any chest pain or shortness of breath. Denies any blood thinner use. States that she does follow-up with the [facility] for GI follow-up. Review of Systems No other aggravating or relieving factors no other associated symptoms no other prior treatments or complaints. Family: Reviewed and noncontributory Social: lives at home Review of systems negative unless otherwise specified in the HPI. Physical Exam Vitals & Measurements T: 36.7 ???C(Oral) HR: 78(Monitored) RR: 18 BP: 133/74 SpO2: 98% HT: 157 cm WT: 58.2 kg BMI: 23.61 General: The patient appears well and in no apparent distress. Patient is resting comfortably on bed. afebrile Skin: Warm, dry, no pallor noted. Head: Normocephalic, atraumatic Neck: No JVD Eye: PERRLA, EOMI ENT: Moist mucus membranes Cardiovascular: Regular rate. normal peripheral perfusion Respiratory: No respiratory distress. no accessory muscle use. no obvious audible wheezing Chest Wall: no deformity Musculoskeletal: normal ROM, no deformity, no swelling GI: No obvious distention abdomen soft. Positive epigastric tenderness on palpation. No rebound tenderness or guarding noted. Neurological: A&O. moves all extremities equal strength and symmetry Psychiatric: Cooperative and appropriate Medical Decision Making A 54-year-old female reports to the emergency department with concerns of epigastric pain. Reports that she is concerned for pancreatitis flareup. Reports nausea vomiting diarrhea. Exam does reveal abdomen is soft. Mild epigastric tenderness on palpation. No rebound tenderness or guarding noted. She is otherwise nontoxic-appearing. Due to concerns we did give her pain medication as well as nausea medication and fluids. We did obtain lab work. There is no leukocytosis. Lipase is stable at 56. Patient was given a dose of pain medication, but was comfortable with discharge home. Discussed follow-up with GI doctor. Discussed return precautions. Follow-up with your primary care provider in 3 to 5 days. If symptoms worsen, do not improve, or new symptoms arise please report back to emergency department for further evaluation. The patient was understanding and agreeable to plan moving forward. Assessment/Plan Chronic pancreatitis (K86.1: Other chronic pancreatitis) Orders: HYDROmorphone, 0.5 mg = 0.5 mL, Injection, IV Push, Once, Stop date 10/24/24 16:53:00 EDT, STAT, Start date 10/24/24 16:53:00 EDT, 10/24/24 16:53:00 EDT ondansetron, 4 mg = 2 mL, Injection, IV Push, Once, Stop date 10/24/24 16:53:00 EDT, STAT, Start date 10/24/24 16:53:00 EDT, 10/24/24 16:53:00 EDT Sodium Chloride 0.9% intravenous solution, 1,000 mL, Soln-IV, IV, Once, Stop date 10/24/24 16:53:00 EDT, STAT, Start date 10/24/24 16:53:00 EDT, Infuse over 61, minute(s) Basic Metabolic Panel CBC w/ Auto Diff eGFR Hepatic Function Panel Lipase Level Saline Lock Insert UA with Cult Rflx Medications Administered Given Dilaudid 0.5 mg/0.5 mL injectable solution, 0.5 mg, IV Push NS 1000 ml Bolus, 1000 mL, IV ondansetron 4 mg/2 mL Inj, 4 mg, IV Push Disposition Plan Patient Discharge Condition Stable Discharge Disposition to home Discharge Prescription List Prescriptions No active prescription medications Follow-up With When Contact Information Tiffanie Zepeda In 3 days 10/27/2024 EDT [address], [address] [phone] Business (1) Additional Instructions: Follow-up with your GI doctor. If you do not have 1 you may follow-up with Dr. Zepeda. Konstantin JENSEN In 3 days 10/27/2024 EDT [address] [place] [address]- Business (1) Additional Instructions: Follow-up with your primary care doctor. You do not have 1 you may follow-up with Dr. Jensen. Patient Education Chronic Pancreatitis Attestation Patient seen and evaluated by the physician application assistant. Attending physician was present in the emergency department and supervised care. This visit was performed by both the physician and an APC. I performed all aspects of the MDM as documented. This report was transcribed using voice recognition software. Every effort was made to ensure accuracy, however, inadvertently computerized orange picker mistakes may be present. Appropriate healthcare PPE was used in evaluating this patient. The patient was placed i (more content not included)... Normal [facility] Comment on above: Result Comment: Elec tronically Signed By: Marco A Aguilar PA-C\.br\Date and Time Signed: 10/24/24 18:47 EDT\.br\Electronically Co-Signed By: Darrel Ferrer DO\.br\Date and Time Co-Signed: 10/25/24 07:01 EDT BMPon 10-24-2024 Anion gap [Moles/Vol] 9 mmol/L Normal 6-16 [facility] Comment on above: Performed By: #### 2 [id number] #### [facility] [address] [place] [address] BUN/Creat Ratio 10 No Units Normal 10-20 [facility] Comment on above: Performed By: #### 2 [id number] #### [facility] [address] [place] [address] Calcium [Mass/Vol] 9.9 mg/dL Normal 8.9-11.1 [facility] Comment on above: Performed By: #### 2 [id number] #### [facility] [address] [place] [address] Chloride [Moles/Vol] 105 mmol/L Normal 101-111 [facility] Comment on above: Performed By: #### 2 [id number] #### [facility] [address] [place] [address] CO2 [Moles/Vol] 27 mmol/L Normal 21-31 [facility] Comment on above: Performed By: #### 2 [id number] #### [facility] [address] [place] [address] Creatinine [Mass/Vol] 0.8 mg/dL Normal 0.5-1.3 [facility] Comment on above: Performed By: #### 2 [id number] #### [facility] [address] [place] [address] Glucose [Mass/Vol] 96 mg/dL Normal 55-199 [facility] Comment on above: Performed By: #### 2 [id number] #### [facility] [address] [place] [address] Potassium [Moles/Vol] 4.0 mmol/L Normal 3.5-5.3 [facility] Comment on above: Performed By: #### 2 [id number] #### [facility] [address] [place] [address] Sodium [Moles/Vol] 137 mmol/L Normal 135-145 [facility] Comment on above: Performed By: #### 2 [id number] #### [facility] [address] [place] [address] Urea nitrogen [Mass/Vol] 8 mg/dL Normal 5-21 [facility] Comment on above: Performed By: #### 2 [id number] #### [facility] [address] [place] [address] CBC w/ Auto Diffon 5 Basophil Absolute 0.2 E9/L Normal 0.0-0.2 [facility] Comment on above: Performed By: #### 2 [id number] #### [facility] [address] [place] [address] Basophils/100 WBC (Bld) 1.6 % Normal 0.0-2.0 [facility] Comment on above: Performed By: #### 2 [id number] #### [facility] [address] [place] [address] Eos Absolute 0.2 E9/L Normal 0.0-0.5 [facility] Comment on above: Performed By: #### 2 [id number] #### [facility] [address] [place] [address] Eosinophils/100 WBC (Bld) 1.8 % Normal 0.0-8.0 [facility] Comment on above: Performed By: #### 2 [id number] #### [facility] [address] [place] [address] Erythrocyte distribution width (RBC) [Ratio] 13.4 % Normal 10.9-14.2 [facility] Comment on above: Performed By: #### 2 [id number] #### [facility] [address] [place] [address] Hematocrit (Bld) [Volume fraction] 40.1 % Normal 34.0-46.0 [facility] Comment on above: Performed By: #### 2 [id number] #### [facility] [address] [place] [address] Hemoglobin (Bld) [Mass/Vol] 14.0 g/dL Normal 12.0-16.0 [facility] Comment on above: Performed By: #### 2 [id number] #### [facility] [address] [place] [address] Lymph Absolute 2.8 E9/L Normal 1.0-4.0 [facility] Comment on above: Performed By: #### 2 [id number] #### [facility] [address] [place] [address] Lymphocytes/100 WBC (Bld) 28.5 % Normal 14.0-50.0 [facility] Comment on above: Performed By: #### 2 [id number] #### [facility] [address] [place] [address] MCH (RBC) [Entitic mass] 34.4 pg High 27.0-34.0 [facility] Comment on above: Performed By: #### 2 [id number] #### [facility] [address] [place] [address] MCHC (RBC) [Mass/Vol] 34.8 g/dL Normal 31.4-36.0 [facility] Comment on above: Performed By: #### 2 [id number] #### [facility] [address] [place] [address] MCV (RBC) [Entitic vol] 98.7 fL Normal 80.0-100.0 [facility] Comment on above: Performed By: #### 2 [id number] #### [facility] [address] [place] [address] Gregory Absolute 0.8 E9/L Normal 0.2-1.0 [facility] Comment on above: Performed By: #### 2 [id number] #### [facility] [address] [place] [address] Monocytes/100 WBC (Bld) 8.3 % Normal 4.0-14.0 [facility] Comment on above: Performed By: #### 2 [id number] #### [facility] [address] [place] [address] Neutro Absolute 5.9 E9/L Normal 2.0-7.5 [facility] Comment on above: Performed By: #### 2 [id number] #### [facility] [address] [place] [address] Neutro Auto 59.8 % Normal 36.0-75.0 [facility] Comment on above: Performed By: #### 2 [id number] #### [facility] [address] [place] [address] Platelet 274.0 E9/L Normal 150.0-500. 0 [facility] Comment on above: Performed By: #### 2 [id number] #### [facility] [address] [place] [address] Platelet mean volume (Bld) [Entitic vol] 8.1 fL Normal 6.4-10.8 [facility] Comment on above: Performed By: #### 2 [id number] #### [facility] [address] [place] [address] RBC 4.1 E12/L Low 4.3-5.9 [facility] Comment on above: Performed By: #### 2 [id number] #### [facility] [address] [place] [address] WBC 9.9 E9/L Normal 4.0-11.0 [facility] Comment on above: Performed By: #### 2 [id number] #### [facility] [address] [place] [address] ED Clinical Summaryon 2024 ED Clinical Summary ED Clinical Summary [address] [address] ED Clinical Summary Person Information Name: CHIOMA ARCINIEGA [facility] Age: 54 Years : 1970 Sex: Female Language: Congolese PCP: NONE, XXXX Marital Status: Visit Id: Visit Reason: Diarrhea; Vomiting; Abdominal pain; CHRONIC PANCREATITIS FLAREUP - PAIN Speciality: Acuity: 3 Enc Type: Emergency Med Service: Emergency Arrival: 10/24/2024 16:30:34 Discharge: 10/24/2024 19:00:36 LOS: 000 02:30 Checkin: 10/24/2024 16:30:34 Checkout: 10/24/2024 19:00:36 Dispo Type: Home (Routine DC) EVENTS: Event Name Event Status Request Date/Time Start Date/Time Complete Date/Time Arrive Complete 10/24/2024 16:30:34 10/24/2024 16:30:34 10/24/2024 16:30:34 Document Home Meds Request 10/24/2024 16:30:34 Triage Complete 10/24/2024 16:30:34 10/24/2024 16:44:12 10/24/2024 16:44:12 No Visitors Cancel 10/24/2024 16:32:00 10/24/2024 16:40:23 Bed Assign Complete 10/24/2024 16:35:52 10/24/2024 16:35:52 10/24/2024 16:35:52 Dr Exam Complete 10/24/2024 16:35:52 10/24/2024 16:36:19 10/24/2024 16:36:19 RN Exam Complete 10/24/2024 16:35:52 10/24/2024 17:23:35 10/24/2024 17:23:35 Registration Complete 10/24/2024 16:36:19 10/24/2024 16:36:30 10/24/2024 16:39:35 Reg Complete Request 10/24/2024 16:39:35 Reg Bed Request Complete 10/24/2024 16:39:35 10/24/2024 16:39:35 10/24/2024 16:39:35 Dr Exam Complete 10/24/2024 16:42:14 10/24/2024 16:42:14 10/24/2024 16:42:14 Registration Request 10/24/2024 16:42:14 Meds Admin Complete 10/24/2024 16:54:04 10/24/2024 17:19:27 Pending Labs Complete 10/24/2024 16:54:04 10/24/2024 18:42:00 Lab Complete 10/24/2024 16:54:04 10/24/2024 17:53:38 Patient Care Request 10/24/2024 16:54:04 Pending Labs Complete 10/24/2024 17:23:44 10/24/2024 17:23:44 10/24/2024 17:53:38 Lab Complete 10/24/2024 17:23:44 10/24/2024 17:23:44 10/24/2024 17:53:38 Meds Admin Complete 10/24/2024 18:32:08 10/24/2024 18:43:50 Discharge Complete 10/24/2024 18:47:59 10/24/2024 19:00:42 10/24/2024 19:00:42 Transfer Complete 10/24/2024 19:00:42 10/24/2024 19:00:42 10/24/2024 19:00:42 ADDRESS: [address] [facility] [id number] [facility] DOC NOTES: MEDICAL INFORMATION: Prescriptions Given: Medications to Continue with No Changes Other Medications promethazine (promethazine 25 mg Tab) 1 Tablets By Mouth 3 times a day. Refills: 0. PATIENT EDUCATION INFORMATION: Instructions: Chronic Pancreatitis Follow up: With: Address: When: Tiffanie Zepeda [address] [place], [place] [phone] [facility] (1) In 3 days 10/27/2024 Comments: Follow-up with your GI doctor. If you do not have 1 you may follow-up with Dr. Zepeda. With: Address: When: Konstantin JENSEN [address] [phone] Business (1) In 3 days 10/27/2024 Comments: Follow-up with your primary care doctor. You do not have 1 you may follow-up with Dr. Jensen. DIAGNOSIS: Chronic pancreatitis Normal [facility] ED Patient Summaryon 025 ED Patient Summary ED Patient Summary [address] [address] Patient Discharge Instructions Person Information Name: CHIOMA ARCINIEGA Age: 54 Years Arrival Date: 10/24/2024 16:30:34 Discharge Diagnosis: Chronic pancreatitis Primary Care Physician: NONE, XXXX Provider Information Primary Provider: Drarel Ferrer DO Advanced Supervisor Buffing And Pasting:Marco A Aguilar PA-C The exam and treatment you received in the Emergency Department were for an urgent problem and are not intended as complete care. It is important that you follow up with a doctor, nurse practitioner, or physician???s application assistant for ongoing care. If your symptoms become worse or you do not improve as expected and you are unable to reach your usual health care provider, you should return to the Emergency Department. We are available 24 hours a day. CHIOMA ARCINIEGA has been given the following list of patient education materials, prescriptions and follow-up instructions: Follow-up Instructions: With: Address: When: Tiffanie Zepeda [address] [place] [address], [address], [address] [phone] Business (1) In 3 days 10/27/2024 Comments: Follow-up with your GI doctor. If you do not have 1 you may follow-up with Dr. Zepeda. With: Address: When: Konstantin JENSEN [address] [place] [address] Business (1) In 3 days 10/27/2024 Comments: Follow-up with your primary care doctor. You do not have 1 you may follow-up with Dr. Jensen. In the event that this physician does not participate in your insurance network, please consult with your insurance company to find a nearby participating provider. Patient Education Materials: Chronic Pancreatitis A MESSAGE TO ALL PATIENTS REGARDING OPIOIDS PRESCRIPTION OPIOIDS: WHAT YOU NEED TO KNOW Prescription opioids can be used to help relieve [id number] pain and are often prescribed following a surgery or injury, or for certain health conditions. These medications can be an important part of the treatment but also come with serious risks. It is important to work with your healthcare provider to make sure you are getting the safest, most effective care. WHAT ARE THE RISKS AND SIDE EFFECTS OF OPIOID USE? Prescription opioids carry serious risks of addiction and overdose, especially with prolonged use. An opioid overdose, often marked by slowed breathing, can cause sudden . The use of prescription opioids can have a number of side effects as well, even when taken as directed: ??? Tolerance???meaning you might need to take more of the medication for the same pain relief ??? Physical dependence???meaning you have symptoms of withdrawal when a medication is stopped ??? Increased sensitivity to pain ??? Constipation ??? Nausea, vomiting, and dry mouth ??? Sleepiness and dizziness ??? Confusion ??? Depression ??? Low levels of testosterone that can result in lower sex drive, energy, and strength ??? Itching and sweating RISKS ARE GREATER WITH: ??? History of drug misuse, substance use disorder, or overdose ??? Mental health conditions (such as depression or anxiety) ??? Sleep apnea ??? Older age (65 years and older) ??? Avoid alcohol while taking prescription opioids. Also, unless specifically advised by your health care provider, medications to avoid include: ??? Benzodiazepines (such as Xanax or Valium) ??? Muscle relaxants (such as Soma or Flexeril) ??? Hypnotics (such as Ambien or Lunesta) ??? Other prescription opioids KNOW YOUR OPTIONS Talk to your health care provider about ways to manage your pain that don???t involve prescription opioids. Some of these options may actually work better and have fewer risks and side effects. Options may include: ??? Pain relievers such as acetaminophen, ibuprofen, and naproxen ??? Some medication that are also used for depression or seizures ??? Physical therapy and exercise ??? Cognitive behavioral therapy, a psychological, goal-directed approach, in which patients learn how to modify physical, behavioral, and emotional triggers of pain and stress. IF YOU ARE PRESCRIBED OPIOIDS FOR PAIN: ??? Never take opioids in greater amounts or more often than prescribed. ??? Follow up with your primary health care provider. o Work together to create a plan on how to manage your pain. o Talk about ways to help manage your pain that don???t involve prescription opioids. o Talk about any and all concerns and side effects. ??? Help prevent misuse and abuse o Never sell or share prescription opioids. o Never use another person???s prescription opioids. ??? Store prescription opioids in a secure place and out of reach of others (this may include visitors, children, friends, and family). ??? Safely dispose of unused prescription opioids: Find your community drug take-back program o (more content not included)... Normal [facility] Hep Func Panelon 10-24-2024 Albumin [Mass/Vol] 4.3 g/dL Normal 3.3-5.0 [facility] Comment on above: Performed By: #### 2 [id number] #### [facility] [address] [place] [address] Albumin/Globulin [Mass ratio] 1.8 {ratio} Normal 1.1-2.2 [facility] [facility] Comment on above: Performed By: #### 2 [id number] #### [facility] [address] [place] [address] Alk Phos 125 Int._Unit/L High 21-98 [facility] Comment on above: Performed By: #### 2 [id number] #### [facility] [address] [place] [address] ALT 9 Int._Unit/L Normal 6-46 [facility] Comment on above: Performed By: #### 2 [id number] #### [facility] [address] [place] [address] AST 18 Int._Unit/L Normal 5-43 [facility] Comment on above: Performed By: #### 2 [id number] #### [facility] [address] [place] [address] Bili Direct 0.0 mg/dL Normal 0.0-0.4 [facility] Comment on above: Performed By: #### 2 [id number] #### [facility] [address] [place] [address] Bili Indirect 0.2 mg/dL Normal 0.1-0.9 [facility] Comment on above: Performed By: #### 2 [id number] #### [facility] [address] [place] [address] Bili Total 0.2 mg/dL Normal 0.0-1.1 [facility] Comment on above: Performed By: #### 2 [id number] #### [facility] [address] [place] [address] Globulin (S) [Mass/Vol] 2.4 g/dL Normal 1.4-4.0 [facility] Comment on above: Performed By: #### 2 [id number] #### [facility] [address] [place] [address] Protein [Mass/Vol] 6.7 g/dL Normal 6.0-7.8 [facility] Comment on above: Performed By: #### 2 [id number] #### [facility] [address] [place] [address] Lipase Levelon 10-24-2024 Lipase Lvl 56 unit/L Normal 13-58 [facility] Comment on above: Performed By: #### 2 [id number] #### [facility] [address] [place] [address] UA with Cult Rflxon 10-25-19 25 Color (U) Colorless Abnormal Yellow [facility] Comment on above: Result Comment: Micr oscopic readings are only performed on those samples that meet specific criteria set forth by [facility]. Performed By: #### 4 [id number] #### [facility] [address] [place] [address] Glucose (U) [Mass/Vol] Negative Normal Negative [facility] Comment on above: Performed By: #### 4 [id number] #### [facility] [address] [place] [address] Ketones Ql (U) Negative Normal Negative [facility] Comment on above: Performed By: #### 4 [id number] #### [facility] [address] [place] [address] UA Blood Negative Normal Negative [facility] Comment on above: Performed By: #### 4 [id number] #### [facility] [address] [place] [address] UA Clarity Clear Normal Clear [facility] Comment on above: Performed By: #### 4 [id number] #### [facility] [address] [place] [address] UA Leuk Est Negative Normal Negative [facility] Comment on above: Performed By: #### 4 [id number] #### [facility] [address] [place] [address] UA Nitrite Negative Normal Negative [facility] Comment on above: Performed By: #### 4 [id number] #### [facility] [address] [place] [address] UA pH 5.5 Invalid Interpretation Code 5.0-9.0 [facility] Comment on above: Performed By: #### 4 [id number] #### [facility] [address] [place] [address] UA Protein Negative Normal Negative [facility] Comment on above: Performed By: #### 4 [id number] #### [facility] [address] [place] [address] UA Spec Grav 1.006 Invalid Interpretation Code 1.005-1.03 0 [facility] Comment on above: Performed By: #### 4 [id number] #### [facility] [address] [place] [address] UA Urobilinogen Negative Normal Negative [facility] Comment on above: Performed By: #### 4 [id number] #### [facility] [address] [place] [address] Urobilinogen (U) [Mass/Vol] Negative Normal Negative [facility] Comment on above: Performed By: #### 4 [id number] #### [facility] [address] [place] [address] UA Spec Desc Clean Catch Normal [facility] Comment on above: Performed By: #### 4 [id number] #### [facility] [address] [place] [address] eGFRon 10-24-2024 eGFR 87 mL/min/1.73 m2 Normal >=59 [facility] Comment on above: Performed By: #### 1 [id number] #### [facility] [address] [place] [address] Alanine aminotransferase [En zymatic activity/volume] in Serum or PlasmaOrdered By: Nicole Posadas on 10-19-2024 ALT [Catalytic activity/Vol] 9 U/L Normal 7-52 [facility] Comment on above: Performed By: #### C BC, LIPASE, BMP, HEPATIC #### [facility] [address] [place] [address] [place] Albumin [Mass/volume] in Ser um or Plasma by Bromocresol green (BCG) dye binding methoOrdered By: Nicole Posadas on 10-19-2024 Albumin BCG dye [Mass/Vol] 4.5 g/dL 3.5-5.7 [facility] Alkaline phosphatase [Enzyma tic activity/volume] in Serum or PlasmaOrdered By: Nicole Posadas on 10-19-2024 ALP [Catalytic activity/Vol] 145 U/L High 34-104 [facility] Comment on above: Performed By: #### C BC, LIPASE, BMP, HEPATIC #### [address] Appearance of UrineOrdered B y: Nicole Posadas on 10-19-2024 Appearance (U) Clear Normal Clear [facility] Comment on above: Order Comment: Name Collection Type:: Voided Performed By: #### C BC, LIPASE, BMP, HEPATIC #### [address] Aspartate aminotransferase [ Enzymatic activity/volume] in Serum or PlasmaOrdered By: Nicole Posadas on 10-19-2024 AST [Catalytic activity/Vol] 16 U/L Normal 13-39 [facility] Comment on above: Performed By: #### C BC, LIPASE, BMP, HEPATIC #### [address] Basic Metabolic Panelon 10-07 Creatinine Clr Calc Pharmacy 60.57 Normal [facility] Comment on above: Performed By: #### C BC, LIPASE, BMP, HEPATIC #### [place] [address] [place] GFR/1.73 sq M.predicted MDRD (S/P/Bld) [Vol rate/Area] mL/min/{1.73_m2} Normal [facility] Comment on above: Performed By: #### C BC, LIPASE, BMP, HEPATIC #### [place] [address] [place] Basophils [#/volume] in Bloo d by Automated countOrdered By: Nicole Posadas on 10-19-2024 Basophils (Bld) [#/Vol] 0.1 10*3/uL Normal 0.0-0.2 [facility] Comment on above: Result Comment: PERF ORMED BY: [place] [address] PATHOLOGIST RF TECHNICIAN TARA BENSON M.D. Performed By: #### C BC, LIPASE, BMP, HEPATIC #### [address] Basophils/100 leukocytes in Blood by Automated countOrdered By: Nicole Posadas on 10-19-2024 Basophils/100 WBC (Bld) 0.9 % Normal . [facility] Comment on above: Performed By: #### C BC, LIPASE, BMP, HEPATIC #### [address] Bilirubin Test strip Ql (U)O rdered By: Nicole Posadas on 10-19-2024 Bilirubin Ql (U) Negative Negative [facility] Bilirubin.direct [Mass/volum e] in Serum or PlasmaOrdered By: Nicole Posadas on 10-19-2024 Bilirubin.direct [Mass/Vol] 0.00 mg/dL Low 0.03-0.18 [facility] Comment on above: If the DBIL is less than 0.1, IBIL is not able to becalculated. Bilirubin.total [Mass/volume ] in Serum or PlasmaOrdered By: Nicole Posadas on 10-19-2024 Bilirubin [Mass/Vol] 0.4 mg/dL Normal 0.3-1.0 [facility] Comment on above: Performed By: #### C BC, LIPASE, BMP, HEPATIC #### [address] abdomen pelvis w conon CT abdomen pelvis w [facility] [place] [address] [place] [address] CT Scan Report Signed Patient: Chioma Arciniega MR#: [id number] : 1970 Acct:[id number] Age/Sex: 54 / F ADM Date: 10/19/24 Loc: ER Room: Type: [facility] ER Attending Dr: Copies to: Nicole Posadas APRN Ordering Provider: Nicole Posadas APRN Date of Service: 10/19/24 CT/CT abdomen pelvis w con: abd pain CT Abdomen and Pelvis withcontrast TECHNIQUE: Axial imaging with 2-D reconstruction.90 cc of Isovue-300. The CT exam was performed using one or more the following dose reduction techniques: Automated exposure control, adjustment of the MA and/or Kv according to patient size, or use of the iterative reconstruction technique. COMPARISON: 04/18/2023 History: Mid upper abdominal pain for 2 days. Nausea and vomiting LIMITATIONS: None LOWER THORAX small hiatal hernia LIVER: Unremarkable GALLBLADDER: Cholecystectomy clips identified. BILE DUCTS: No dilatation SPLEEN: Unremarkable PANCREAS: Unremarkable ADRENAL GLANDS: 12 mm left adrenal nodule unchanged KIDNEYS:Unremarkable AORTA: No abdominal aortic aneurysm identified. RETROPERITONEUM: No significant retroperitoneal abnormalities identified. MESENTERY:Unremarkable STOMACH:Unremarkable SMALL BOWEL: The small bowel loops are nondistended. APPENDIX: The appendix is normal. COLON: Unremarkable URINARY BLADDER: Urinary bladder is unremarkable. REPRODUCTIVE SYSTEM: The uterus is absent. PNEUMOPERITONEUM: None PERITONEAL FLUID:None BONY STRUCTURES: Degenerative change ABDOMINAL WALL: Unremarkable CT/CT abdomen pelvis w con IMPRESSION: No acute findings. No bowel obstruction. Similar hiatal hernia. Similar small left adrenal nodule Impression dictated by: Cruzito Mendieta M.D. 10/19/2024 10:12 PM Dictation Location: [place] [address] Transcribed By: [facility] 10/19/242211 Dictated By: Cruzito Mendieta DO 10/19/242203 Signed By: 10/19/242211 Normal [facility] Calcium [Mass/volume] in Ser um or PlasmaOrdered By: Nicole Posadas on 10-19-2024 Calcium [Mass/Vol] 9.8 mg/dL Normal 8.6-10.3 [facility] Comment on above: Performed By: #### C BC, LIPASE, BMP, HEPATIC #### [facility] [address] [place] [address] Carbon dioxide, total [Moles /volume] in Serum or PlasmaOrdered By: Nicole Posadas on 10-19-2024 CO2 [Moles/Vol] 25.0 mmol/L Normal 21.0-31.0 [facility] Comment on above: Performed By: #### C BC, LIPASE, BMP, HEPATIC #### [address] Chloride [Moles/volume] in S erika or PlasmaOrdered By: Nicole Posadas on 10-19-2024 Chloride [Moles/Vol] 106 mmol/L Normal 98-107 [facility] Comment on above: Performed By: #### C BC, LIPASE, BMP, HEPATIC #### [address] Color of Urine by AutoOrdere d By: Nicole Posadas on 10-19-2024 Color (U) Colorless Normal Yellow [facility] Comment on above: Order Comment: Name Collection Type:: Voided Performed By: #### C BC, LIPASE, BMP, HEPATIC #### [address] Complete Blood Count Auto Di ffon 10-19-2024 Mean Corpuscular HGB Conc 33.7 g/dL Normal 32.0-35.0 [facility] Comment on above: Performed By: #### C BC, LIPASE, BMP, HEPATIC #### [address] Monocytes/100 WBC (Bld) 17.90 % Normal 0.00-20.00 [facility] Comment on above: Performed By: #### C BC, LIPASE, BMP, HEPATIC #### [address] NRBC% 0.0 /100{WBC} Normal 0-0.5 [facility] Comment on above: Performed By: #### C BC, LIPASE, BMP, HEPATIC #### [address] White Blood Count 11.2 [CFU]/mL Normal 3.8-11.6 [facility] Comment on above: Performed By: #### C BC, LIPASE, BMP, HEPATIC #### [facility] [address] [place] [address] [place] Creatinine [Mass/volume] in Serum or PlasmaOrdered By: Nicole Posadas on 10-19-2024 Creatinine [Mass/Vol] 0.83 mg/dL Normal 0.60-1.20 [facility] Comment on above: Performed By: #### C BC, LIPASE, BMP, HEPATIC #### [facility] [address] ECG 12 lead ECGon 10-19-2024 ECG 12 lead ECG [facility] [place] [address] [place] [address] Electrocardiograph Report Signed Patient: Chioma Arciniega MR#: [id number] : 1970 Acct:[id number] Age/Sex: 54 / F ADM Date: 10/19/24 Loc: ER Room: Type: [facility] ER Attending Dr: Ordering Provider: Nicole Posadas APRN Date of Service: 10/19/24 ECG/ECG 12 lead ECG: Abdominal Pain Copies to: Test Reason : Blood Pressure : */* mmHG Vent. Rate : 93 BPM Atrial Rate : 93 BPM P-R Int : 140 ms QRS Dur : 62 ms QT Int : 326 ms P-R-T Axes : 75 59 59 degrees QTcB Int : 405 ms Normal sinus rhythm Confirmed by Chi GARCIA DO ([id number]) on 10/20/2024 12:41:59 AM Referred By: Electronically Signed By: Chi GARCIA DO Transcribed By: MUS Signed By Chi Garcia DO 0 10/20/24 0042 Normal [facility] Eosinophils [#/volume] in Bl ood by Automated countOrdered By: Nicole Posadas on 10-19-2024 Eosinophils (Bld) [#/Vol] 0.2 10*3/uL Normal 0.0-0.45 [facility] Comment on above: Performed By: #### C BC, LIPASE, BMP, HEPATIC #### [facility] [address] [place] [address] [place] Eosinophils/100 leukocytes i n Blood by Automated countOrdered By: Nicole Posadas on 10-19-2024 Eosinophils/100 WBC (Bld) 1.6 % Normal . [facility] Comment on above: Performed By: #### C BC, LIPASE, BMP, HEPATIC #### [facility] [address] Erythrocyte distribution wid th [Ratio] by Automated countOrdered By: Nicole Posadas on 10-19-2024 Erythrocyte distribution width (RBC) [Ratio] 13.8 % Normal 11.9-15.3 [facility] Comment on above: Performed By: #### C BC, LIPASE, BMP, HEPATIC #### [facility] [address] Erythrocytes [#/volume] in B lood by Automated countOrdered By: Nicole Posadas on 10-19-2024 RBC (Bld) [#/Vol] 4.37 10*6/uL Normal 3.60-5.00 [facility] Comment on above: Performed By: #### C BC, LIPASE, BMP, HEPATIC #### [facility] [address] Glucose [Mass/volume] in Ser um or PlasmaOrdered By: Nicole Posadas on 10-19-2024 Glucose [Mass/Vol] 84 mg/dL Normal 70-100 [facility] Comment on above: ADA recommended refe rence rangeRandom Glucose Reference Range is dependent on time and content of last meal. Glucose of more than 200 mg/dL in a nonstressed, ambulatory subject supports the diagnosis of Diabetes Mellitus. Result Comment: [place] Glucose Reference Range is dependent on time and content of last meal. Glucose of more than 200 mg/dL in a nonstressed, ambulatory subject supports the diagnosis of Diabetes Mellitus. ADA recommended reference range Performed By: #### C BC, LIPASE, BMP, HEPATIC #### [facility] [address] [place] [address] [place] Glucose [Mass/volume] in Uri ne by Test stripOrdered By: Nicole Posadas on 10-19-2024 Glucose Test strip (U) [Mass/Vol] Normal mg/dL Normal [facility] Hematocrit [Volume Fraction] of Blood by Automated countOrdered By: Nicole Posadas on 10-19-2024 Hematocrit (Bld) [Volume fraction] 42.9 % Normal 34.0-46.4 [facility] Comment on above: Performed By: #### C BC, LIPASE, BMP, HEPATIC #### [address] Hemoglobin Test strip Ql (U) Ordered By: Nicole Posadas on 10-19-2024 Hemoglobin Ql (U) Negative Negative [facility] Hemoglobin [Mass/volume] in BloodOrdered By: Nicole Posadas on 10-19-2024 Hemoglobin (Bld) [Mass/Vol] 14.4 g/dL Normal 11.8-15.4 [facility] Comment on above: Performed By: #### C BC, LIPASE, BMP, HEPATIC #### [address] Hepatic Panelon 10-19-2024 Albumin [Mass/Vol] 4.5 g/dL Normal 3.5-5.7 [facility] Comment on above: Performed By: #### C BC, LIPASE, BMP, HEPATIC #### [address] Bilirubin,Indirect 0.4 mg/dL Normal [facility] Comment on above: Performed By: #### C BC, LIPASE, BMP, HEPATIC #### [address] Bilirubin.indirect [Mass/Vol] 0.00 mg/dL Low 0.03-0.18 [facility] Comment on above: Result Comment: If t he DBIL is less than 0.1, IBIL is not able to be calculated. Performed By: #### C BC, LIPASE, BMP, HEPATIC #### [address] Ketones [Presence] in Urine by Test stripOrdered By: Nicole Posadas on 10-19-2024 Ketones Ql (U) Negative Normal Negative [facility] Comment on above: Order Comment: Name Collection Type:: Voided Performed By: #### C BC, LIPASE, BMP, HEPATIC #### [facility] [address] Leukocyte esterase [Presence ] in Urine by Test stripOrdered By: Nicole Posadas on 10-19-2024 Leukocyte esterase Test strip Ql (U) Negative Normal Negative [facility] Comment on above: Order Comment: Name Collection Type:: Voided Performed By: #### C BC, LIPASE, BMP, HEPATIC #### [facility] [address] Leukocytes [#/volume] correc aurelia for nucleated erythrocytes in Blood by Automated counOrdered By: Nicole Posadas on 10-19-2024 WBC corrected for nucl RBC Auto (Bld) [#/Vol] 11.2 10*3/uL 3.8-11.6 [facility] Leukocytes [#/volume] in Blo od by Automated countOrdered By: Nicole Posadas on 10-19-2024 WBC (Bld) [#/Vol] 11.2 10*3/uL Normal 3.8-11.6 [facility] Comment on above: Performed By: #### C BC, LIPASE, BMP, HEPATIC #### [address] Lipase [Enzymatic activity/v olume] in Serum or PlasmaOrdered By: Nicole Posadas on 10-19-2024 Lipase [Catalytic activity/Vol] 198.0 U/L High 11.0-82.0 [facility] Comment on above: Result Comment: PERF ORMED BY: [place] [address] PATHOLOGIST RF TECHNICIAN TARA BENSON M.D. Performed By: #### C BC, LIPASE, BMP, HEPATIC #### [facility] [address] [place] [address] Lymphocytes [#/volume] in Bl ood by Automated countOrdered By: Nicole Posadas on 10-19-2024 Lymphocytes (Bld) [#/Vol] 3.3 10*3/uL Normal 1.00-4.8 [facility] Comment on above: Performed By: #### C BC, LIPASE, BMP, HEPATIC #### [facility] [address] Lymphocytes/100 leukocytes i n Blood by Automated countOrdered By: Nicole Posadas on 10-19-2024 Lymphocytes/100 WBC (Bld) 29.1 % Normal . [facility] Comment on above: Performed By: #### C BC, LIPASE, BMP, HEPATIC #### [facility] [address] [place] [address] MCH [Entitic mass] by Automa aurelia countOrdered By: Nicole Posadas on 10-19-2024 MCH (RBC) [Entitic mass] 33.0 pg Normal 24.7-34.3 [facility] Comment on above: Performed By: #### C BC, LIPASE, BMP, HEPATIC #### [address] MCHC Auto (RBC) [Mass/Vol]Or dered By: Nicole Posadas on 10-19-2024 MCHC (RBC) [Mass/Vol] 33.7 g/dL 32.0-35.0 [facility] MCV [Entitic volume] by Auto mated countOrdered By: Nicole Posadas on 10-19-2024 MCV (RBC) [Entitic vol] 98.2 fL Normal 80-100 [facility] Comment on above: Performed By: #### C BC, LIPASE, BMP, HEPATIC #### [address] Monocyte distribution width [Entitic volume] in Blood by AutomatedOrdered By: Nicole Posadas on 10-19-2024 Monocyte distribution width Auto (Bld) [Entitic vol] 17.90 % 0.00-20.00 [facility] Monocytes [#/volume] in Bloo d by Automated countOrdered By: Nicole Posadas on 10-19-2024 Monocytes (Bld) [#/Vol] 1.0 10*3/uL High 0.0-0.8 [facility] Comment on above: Performed By: #### C BC, LIPASE, BMP, HEPATIC #### [address] Monocytes/100 leukocytes in Blood by Automated countOrdered By: Nicole Posadas on 10-19-2024 Monocytes/100 WBC (Bld) 8.6 % Normal . [facility] Comment on above: Performed By: #### C BC, LIPASE, BMP, HEPATIC #### [facility] [address] Neutrophils [#/volume] in Bl ood by Automated countOrdered By: Nicole Posadas on 10-19-2024 Neutrophils (Bld) [#/Vol] 6.7 10*3/uL Normal 1.8-7.7 [facility] Comment on above: Performed By: #### C BC, LIPASE, BMP, HEPATIC #### [facility] [address] Neutrophils/100 leukocytes i n Blood by Automated countOrdered By: Nicole Posadas on 10-19-2024 Neutrophils/100 WBC (Bld) 59.8 % Normal . [facility] Comment on above: Performed By: #### C BC, LIPASE, BMP, HEPATIC #### [facility] [address] Nitrite Test strip Ql (U)Ord ered By: Nicole Posadas on 10-19-2024 Nitrite Ql (U) Negative Negative [facility] No Panel InformationOrdered By: Nicole Posadas on 10-19-2024 Estimated GFR (CKD-EPI) > 60.0 mL/Min [facility] Creatinine Clearance (Chem 60.57 [facility] Nucleated erythrocytes [Pres ence] in Blood by Automated countOrdered By: Nicole Posadas on 10-19-2024 Nucleated RBC Auto Ql (Bld) 0.0 /100{WBC} 0-0.5 [facility] Platelet mean volume [Entiti c volume] in Blood by Automated countOrdered By: Nicole Posadas on 10-19-2024 Platelet mean volume (Bld) [Entitic vol] 7.5 fL Normal 6.3-10.7 [facility] Comment on above: Performed By: #### C BC, LIPASE, BMP, HEPATIC #### [facility] [address] Platelets [#/volume] in Bloo d by Automated countOrdered By: Nicole Posadas on 10-19-2024 Platelets (Bld) [#/Vol] 281 10*3/uL Normal 150-450 [facility] Comment on above: Performed By: #### C BC, LIPASE, BMP, HEPATIC #### [facility] [address] [place] [address] Potassium [Moles/volume] in Serum or PlasmaOrdered By: Nicole Posadas on 10-19-2024 Potassium [Moles/Vol] 3.9 mmol/L Normal 3.5-5.1 [facility] Comment on above: Performed By: #### C BC, LIPASE, BMP, HEPATIC #### [address] Protein Test strip (U) [Mass /Vol]Ordered By: Nicole Posadas on 10-19-2024 Protein (U) [Mass/Vol] Negative Negative [facility] Protein [Mass/volume] in Ser um or PlasmaOrdered By: Nicole Posadas on 10-19-2024 Protein [Mass/Vol] 7.3 g/dL Normal 6.4-8.9 [facility] Comment on above: Performed By: #### C BC, LIPASE, BMP, HEPATIC #### [address] Serum globulin measurement b y calculation (mass/volume)Ordered By: Nicole Posadas on 10-19-2024 Globulin (S) [Mass/Vol] 2.8 g/dL [facility] Comment on above: Performed By: #### C BC, LIPASE, BMP, HEPATIC #### [facility] [address] [place] [address] Serum or plasma albumin/glob ulin mass ratioOrdered By: Nicole Posadas on 10-19-2024 Albumin/Globulin [Mass ratio] 1.6 {ratio} [facility] Comment on above: Performed By: #### C BC, LIPASE, BMP, HEPATIC #### [facility] [address] Serum or plasma anion gap de terminationOrdered By: Nicole Posadas on 10-19-2024 Anion gap [Moles/Vol] 11.9 mmol/L Normal 6.0-15.0 [facility] Comment on above: Performed By: #### C BC, LIPASE, BMP, HEPATIC #### [address] Serum or plasma non-glucuron idated bilirubin measurement (mass/volume)Ordered By: Nicole Posadas on 10-19-2024 Bilirubin.indirect [Mass/Vol] 0.4 mg/dL [facility] Sodium [Moles/volume] in Ser um or PlasmaOrdered By: Nicole Posadas on 10-19-2024 Sodium [Moles/Vol] 139 mmol/L Normal 136-145 [facility] Comment on above: Performed By: #### C BC, LIPASE, BMP, HEPATIC #### [address] Specific gravity Test strip (U) [Rel density]Ordered By: Nicole Posadas on 10-19-2024 Specific gravity (U) [Rel density] 1.007 1.001-1.03 0 [facility] Urea nitrogen [Mass/volume] in Serum or PlasmaOrdered By: Nicole Posadas on 10-19-2024 Urea nitrogen [Mass/Vol] 11 mg/dL Normal 7-25 [facility] Comment on above: Performed By: #### C BC, LIPASE, BMP, HEPATIC #### [address] Urinalysison 10-19-2024 Bilirubin,Urine Negative Normal Negative [facility] Comment on above: Order Comment: Name Collection Type:: Voided Performed By: #### C BC, LIPASE, BMP, HEPATIC #### [address] Glucose Ql (U) Normal Normal Normal [facility] Comment on above: Order Comment: Name Collection Type:: Voided Performed By: #### C BC, LIPASE, BMP, HEPATIC #### [address] Nitrite,Urine Negative Normal Negative [facility] Comment on above: Order Comment: Name Collection Type:: Voided Performed By: #### C BC, LIPASE, BMP, HEPATIC #### [address] Occult Blood,Urine Negative Normal Negative [facility] Comment on above: Order Comment: Name Collection Type:: Voided Result Comment: PERF ORMED BY: [place] [address] PATHOLOGIST RF TECHNICIAN TARA BENSON M.D. Performed By: #### C BC, LIPASE, BMP, HEPATIC #### [address] Protein,Urine Negative Normal Negative [facility] Comment on above: Order Comment: Name Collection Type:: Voided Performed By: #### C BC, LIPASE, BMP, HEPATIC #### [address] Specificy [place],Urine 1.007 Normal 1.001-1.03 0 [facility] Comment on above: Order Comment: Name Collection Type:: Voided Performed By: #### C BC, LIPASE, BMP, HEPATIC #### [address] Urobilinogen,Urine Normal Normal Normal [facility] Comment on above: Order Comment: Name Collection Type:: Voided Performed By: #### C BC, LIPASE, BMP, HEPATIC #### [address] Urobilinogen Test strip (U) [Mass/Vol]Ordered By: Nicole Posadas on 10-19-2024 Urobilinogen (U) [Mass/Vol] Normal mg/dL Normal [facility] pH of Urine by Test stripOrd ered By: Nicole Posadas on 10-19-2024 pH (U) 5.5 [pH] Normal 5.0-9.0 [facility] Comment on above: Order Comment: Name Collection Type:: Voided Performed By: #### C BC, LIPASE, BMP, HEPATIC #### [facility] [address] ED Note-Physicianon 10-16-19 ED Note-Physician ED Note-Physician Basic Information Time Seen: Marco A Aguilar PA-C 10/09/2024 13:33 Chief Complaint pt reports hx of pancreatits due to alcohol usage. states no longer a drinker. has had abd pain n/v the past few days. History of Present Illness A 54-year-old female reports to the ED with concerns of acute flareup of her pancreatitis. Reports has chronic pancreatitis but having acute pain at this time. Reports that she has pancreatitis due to history of alcohol use. Reports has not had a drink in 3 years. Reports had nausea vomiting the last couple days as well. Reports multiple allergies. He reports that she has tried at home medications including Motrin and Tylenol as well as Bentyl, without any relief. Has tried Phenergan at home as well and has thrown everything up. She denies any fevers or chills. History of smoking. Review of Systems No other aggravating or relieving factors no other associated symptoms no other prior treatments or complaints. Family: Reviewed and noncontributory Social: lives at home Review of systems negative unless otherwise specified in the HPI. Physical Exam Vitals & Measurements T: 36.2 ???C(Tympanic) HR: 94(Peripheral) RR: 18 BP: 124/70 SpO2: 97% HT: 157 cm WT: 57.3 kg BMI: 23.25 General: The patient appears well and in no apparent distress. Patient is resting comfortably on bed. afebrile Skin: Warm, dry, no pallor noted. Head: Normocephalic, atraumatic Neck: No JVD Eye: PERRLA, EOMI ENT: Moist mucus membranes Cardiovascular: Regular rate. normal peripheral perfusion Respiratory: No respiratory distress. no accessory muscle use. no obvious audible wheezing. Lung sounds good auscultation Chest Wall: no deformity Musculoskeletal: normal ROM, no deformity, no swelling GI: No obvious distention. Abdomen soft. Rebound tenderness guarding noted. Mild tenderness on the upper central aspect of the abdomen. Neurological: A&O. moves all extremities equal strength and symmetry Psychiatric: Cooperative and appropriate Medical Decision Making 54-year-old female reports to the ED with concerns of upper abdominal pain. Symptoms been the last couple days. Has associated nausea vomiting. History of chronic pancreatitis. Believes that she is having acute flare at this time. She does have some mild upper abdominal tenderness on palpation. No chest pain. No shortness of breath. Resting comfortably in the bed. Due to concerns we did do a full workup on the patient. Lab work reviewed noted. Lipase is very mildly elevated only at 98. We did do a CT of her abdomen. Patient was given fluids as well as Dilaudid here. Currently pending CT of the abdomen. Patient handed off to attending physician for further evaluation. Assessment/Plan Chronic pancreatitis (K86.1: Other chronic pancreatitis) Orders: HYDROmorphone, 0.5 mg = 0.5 mL, Injection, IV Push, Once, Stop date 10/09/24 13:45:00 EDT, STAT, Start date 10/09/24 13:45:00 EDT, 10/09/24 13:45:00 EDT ondansetron, 4 mg = 2 mL, Injection, IV Push, Once, Stop date 10/09/24 13:45:00 EDT, STAT, Start date 10/09/24 13:45:00 EDT, 10/09/24 13:45:00 EDT Sodium Chloride 0.9% intravenous solution, 1,000 mL, Soln-IV, IV, Once, Stop date 10/09/24 13:41:00 EDT, STAT, Start date 10/09/24 13:41:00 EDT, Infuse over 61, minute(s) Basic Metabolic Panel CBC w/ Auto Diff CT Abdomen/Pelvis w/ Contrast eGFR Hepatic Function Panel Lipase Level Saline Lock Insert UA with Cult Rflx Medications Administered Given Dilaudid 0.5 mg/0.5 mL injectable solution, 0.5 mg, IV Push NS 1000 ml Bolus, 1000 mL, IV Zofran 4 mg/2 mL Injection, 4 mg, IV Push Disposition Plan Patient Discharge Condition Stable Discharge Prescription List Prescriptions No active prescription medications Follow-up No qualifying data available Attestation Patient seen and evaluated by the physician application assistant. Attending physician was present in the emergency department and supervised care. This visit was performed by both the physician and an APC. I performed all aspects of the MDM as documented. This report was transcribed using voice recognition software. Every effort was made to ensure accuracy, however, inadvertently computerized orange picker mistakes may be present. Appropriate healthcare PPE was used in evaluating this patient. The patient was placed in a mask. The healthcare provider was wearing mask, gloves, and utilizing proper hand hygiene. All equipment was properly cleansed. I performed a substantive part of the MDM during the patient???s E/M visit. I personally made or approved the documented management plan and acknowledge its risk of complications. (Independent Interpretation) My (EKG/X-Ray/US/CT as applicable) interpretation as above. (Discussion) Management/test interpretation discussed with APC. Problem List/Past Medical History Ongoing Smoker Historical No qualifying data Medications Inpatient No active inpatient medications Home promethazine 2 (more content not included)... Normal [facility] Comment on above: Result Comment: Elec tronically Signed By: Jeff MARSH, Marco A Shaver\.br\Date and Time Signed: 10/09/24 16:16 EDT\.br\Electronically Co-Signed By: Ish Stokes MD\.br\Date and Time Co-Signed: 10/15/24 08:10 EDT APTTon 10-11-2024 aPTT Coag (Bld) [Time] 28 s Normal 26-37 Pr [facility] Comment on above: Performed By: #### C EZEQUIEL BMP, 48547-6, LIVR, 93106-3, 61216-6, 5643-2, 3040-3 #### [facility] ([id number]) [address] [place] [address] 89382 BASIC METABOLIC PANELon 08-0 Anion gap [Moles/Vol] 5 mmol/L Normal 5-15 [facility] Comment on above: Performed By: #### C BCA, BMP, 42941-0, LIVR, 88839-0, 80443-1, 5643-2, 3040-3 #### [facility] ([id number]) [address] [place] [address] 43681 Calcium [Mass/Vol] 9.3 mg/dL Normal 8.5-10.5 [facility] Comment on above: Performed By: #### C BCA, BMP, 10392-5, LIVR, 82477-2, 22940-4, 5643-2, 3040-3 #### [facility] ([id number]) [address] [place] [address] 42884 Chloride [Moles/Vol] 106 mmol/L Normal 98-109 [facility] Comment on above: Performed By: #### C BCA, BMP, 85009-0, LIVR, 50649-7, 18760-9, 5643-2, 3040-3 #### [facility] ([id number]) [address] [place] [address] 95528 CO2 [Moles/Vol] 25 mmol/L Normal 22-32 [facility] Comment on above: Performed By: #### C BCA, BMP, 01427-1, LIVR, 72538-8, 40888-9, 5643-2, 3040-3 #### [facility] ([id number]) [address] [place] [address] 28437 Creatinine [Mass/Vol] 0.80 mg/dL Normal 0.40-1.00 [facility] Comment on above: Result Comment: METH OD TRACEABLE TO IDMS STANDARD Performed By: #### C BCA, BMP, 68189-0, LIVR, 89012-1, 51790-2, 5643-2, 3040-3 #### [facility] ([id number]) [address] [place] [address] 90062 GFR/1.73 sq M.predicted among non-blacks MDRD (S/P/Bld) [Vol rate/Area] 87 mL/min/{1.73_m2} Normal >=60 [facility] Comment on above: Result Comment: eGFR not reported due to non-numeric value for Creatinine. Reported eGFR is based on the CKD-EPI 2020 equation that does not use a race coefficient. Performed By: #### C BCA, BMP, 23595-5, LIVR, 77453-0, 30962-6, 5643-2, 3040-3 #### [facility] ([id number]) [address] [place] [address] 78866 Glucose [Mass/Vol] 98 mg/dL Normal 65-99 [facility] Comment on above: Performed By: #### C BCA, BMP, 73429-0, LIVR, 22303-8, 10031-8, 5643-2, 3040-3 #### [facility] ([id number]) [address] [place] [address] 82564 Potassium [Moles/Vol] 3.9 mmol/L Normal 3.5-5.0 [facility] Comment on above: Performed By: #### C BCA, BMP, 45624-7, LIVR, 71564-7, 30457-0, 5643-2, 3040-3 #### [facility] ([id number]) [address] [place] [address] 89546 Sodium [Moles/Vol] 136 mmol/L Normal 134-146 [facility] Comment on above: Performed By: #### C BCA, BMP, 72670-3, LIVR, 15038-6, 44869-9, 5643-2, 3040-3 #### [facility] ([id number]) [address] [place] [address] 71806 Urea nitrogen [Mass/Vol] 10 mg/dL Normal 5-23 [facility] Comment on above: Performed By: #### C BCA, BMP, 95157-7, LIVR, 12334-8, 33100-6, 5643-2, 3040-3 #### [facility] ([id number]) [address] [place] [address] 49998 CBC WITH AUTO DIFFERENTIALon 10-11-2024 BASOPHILS ABSOLUTE COUNT (10*3/UL) BY AUTOMATED COUNT 0.1 10*3/uL Normal 0.0-0.2 [facility] Comment on above: Performed By: #### C BCA, BMP, 32029-2, LIVR, 49416-6, 12823-4, 5643-2, 3040-3 #### [facility] ([id number]) [address] [place] [address] 97923 BASOPHILS RELATIVE PERCENT BY AUTOMATED COUNT 0.9 % Normal [facility] Comment on above: Performed By: #### C BCA, BMP, 08336-3, LIVR, 38595-7, 81773-9, 5643-2, 3040-3 #### [facility] ([id number]) [address] [place] [address] 10951 CELLAVISION DIFFERENTIAL TYPE AUTOMATED DIFFERENTIAL Normal [facility] Comment on above: Performed By: #### C BCA, BMP, 23179-0, LIVR, 39920-8, 98964-8, 5643-2, 3040-3 #### [facility] ([id number]) [address] [place] [address] 63319 Eosinophils (Bld) [#/Vol] 0.2 10*3/uL Normal 0.0-0.4 [facility] Comment on above: Performed By: #### C BCA, BMP, 48158-9, LIVR, 34256-0, 94836-6, 5643-2, 3040-3 #### [facility] ([id number]) [address] [place] [address] 09097 EOSINOPHILS RELATIVE PERCENT BY AUTOMATED COUNT 2.8 % Normal [facility] Comment on above: Performed By: #### C BCA, BMP, 84878-8, LIVR, 83498-0, 74770-8, 5643-2, 3040-3 #### [facility] ([id number]) [address] [place] [address] 33540 Erythrocyte distribution width (RBC) [Ratio] 13.6 % Normal 11.5-15 [facility] Comment on above: Performed By: #### C BCA, BMP, 28848-1, LIVR, 61508-4, 93504-6, 5643-2, 3040-3 #### [facility] ([id number]) [address] [place] [address] 60225 Hematocrit (Bld) [Volume fraction] 40.5 % Normal 35-47 [facility] Comment on above: Performed By: #### C BCA, BMP, 72294-2, LIVR, 92450-5, 81977-0, 5643-2, 3040-3 #### [facility] ([id number]) [address] [place] [address] 25427 Hemoglobin (Bld) [Mass/Vol] 13.9 g/dL Normal 11.7-15.5 [facility] Comment on above: Performed By: #### C BCA, BMP, 71210-6, LIVR, 94968-7, 19998-9, 5643-2, 3040-3 #### [facility] ([id number]) [address] [place] [address] 34728 LYMPHOCYTES ABSOLUTE COUNT (10*3/UL) BY AUTOMATED COUNT 2.1 10*3/uL Normal 1.0-3.5 [facility] Comment on above: Performed By: #### C BCA, BMP, 78652-4, LIVR, 94377-5, 09278-5, 5643-2, 3040-3 #### [facility] ([id number]) [address] [place] [address] 07346 LYMPHOCYTES RELATIVE PERCENT BY AUTOMATED COUNT 23.7 % Normal [facility] Comment on above: Performed By: #### C BCA, BMP, 41264-6, LIVR, 09787-2, 92750-9, 5643-2, 3040-3 #### [facility] ([id number]) [address] [place] [address] 59182 MCH (RBC) [Entitic mass] 33.2 pg Normal 27-34 [facility] Comment on above: Performed By: #### C BCA, BMP, 57769-5, LIVR, 12156-8, 45588-1, 5643-2, 3040-3 #### [facility] ([id number]) [address] [place] [address] 49110 MCHC (RBC) [Mass/Vol] 34.3 g/dL Normal 32-36 [facility] Comment on above: Performed By: #### C BCA, BMP, 07584-7, LIVR, 97950-7, 03593-2, 5643-2, 3040-3 #### [facility] ([id number]) [address] [place] [address] 89324 MCV (RBC) [Entitic vol] 97 fL Normal 80-100 [facility] Comment on above: Performed By: #### C BCA, BMP, 44979-6, LIVR, 60281-1, 88895-8, 5643-2, 3040-3 #### [facility] ([id number]) [address] [place] [address] 51043 MONOCYTES ABSOLUTE COUNT (10*3/UL) BY AUTOMATED COUNT 0.8 10*3/uL Normal 0.0-0.9 [facility] Comment on above: Performed By: #### C BCA, BMP, 79433-5, LIVR, 00439-4, 21147-5, 5643-2, 3040-3 #### [facility] ([id number]) [address] [place] [address] 17269 MONOCYTES RELATIVE PERCENT BY AUTOMATED COUNT 8.9 % Normal [facility] Comment on above: Performed By: #### C BCA, BMP, 73194-9, LIVR, 07186-8, 81805-5, 5643-2, 3040-3 #### [facility] ([id number]) [address] [place] [address], [place] [address] NEUTROPHILS ABSOLUTE COUNT BY AUTOMATED COUNT 5.6 10*3/uL Normal 1.5-6.6 [facility] Comment on above: Performed By: #### C BCA, BMP, 22439-5, LIVR, 84004-2, 85699-9, 5643-2, 3040-3 #### [facility] ([id number]) [address] [place] [address] 44694 NEUTROPHILS RELATIVE PERCENT BY AUTOMATED COUNT 63.7 % Normal [facility] Comment on above: Performed By: #### C BCA, BMP, 82463-0, LIVR, 84872-0, 29014-5, 5643-2, 3040-3 #### [facility] ([id number]) [address] [place] [address] 78154 Platelet mean volume (Bld) [Entitic vol] 7.7 fL Normal 7-12 [facility] Comment on above: Performed By: #### C BCA, BMP, 52160-3, LIVR, 80758-7, 64434-1, 5643-2, 3040-3 #### [facility] ([id number]) [address] [place] [address] 31696 Platelets (Bld) [#/Vol] 244 10*3/uL Normal 150-450 [facility] Comment on above: Performed By: #### C BCA, BMP, 56709-6, LIVR, 99307-1, 61787-1, 5643-2, 3040-3 #### [facility] ([id number]) [address] [place] [address] 33281 RBC COUNT 4.19 X10E12/L Normal 3.8-5.2 [facility] Comment on above: Performed By: #### C BCA, BMP, 14680-1, LIVR, 04789-8, 78006-5, 5643-2, 3040-3 #### [facility] ([id number]) [address] [place] [address] 14899 WBC (Bld) [#/Vol] 8.8 10*3/uL Normal 4-11 [facility] Comment on above: Performed By: #### C BCA, BMP, 71281-0, LIVR, 07155-4, 42401-0, 5643-2, 3040-3 #### [facility] ([id number]) [address] [place] [address] 36729 ETHANOLon 10-11-2024 Ethanol [Mass/Vol] mg/dL Normal <=0.080 [facility] Comment on above: Result Comment: This report is intended for use in clinical monitoring or management of patients. Performed By: #### C BCA, BMP, 84358-2, LIVR, 28640-1, 71883-8, 5643-2, 3040-3 #### [facility] ([id number]) [address] [place] [address] 94574 LIPASEon 10-11-2024 Lipase [Catalytic activity/Vol] 49 U/L High 17-40 [facility] Comment on above: Performed By: #### C BCA, BMP, 47905-5, LIVR, 87775-8, 97625-8, 5643-2, 3040-3 #### [facility] ([id number]) [address] [place] [address] 75298 LIVER PANELon 10-11-2024 Albumin [Mass/Vol] 3.9 g/dL Normal 3.2-5.3 [facility] Comment on above: Performed By: #### C BCA, BMP, 23501-7, LIVR, 36296-0, 81014-7, 5643-2, 3040-3 #### [facility] ([id number]) [address] [place] [address] 90986 ALP [Catalytic activity/Vol] 111 U/L Normal 39-130 [facility] Comment on above: Performed By: #### C BCA, BMP, 63638-5, LIVR, 28922-8, 57168-4, 5643-2, 3040-3 #### [facility] ([id number]) [address] [place] [address] 34898 ALT [Catalytic activity/Vol] 12 U/L Normal <=31 [facility] Comment on above: Performed By: #### C BCA, BMP, 80868-9, LIVR, 64621-3, 00726-7, 5643-2, 3040-3 #### [facility] ([id number]) [address] [place] [address] 82796 AST [Catalytic activity/Vol] 22 U/L Normal <=41 [facility] Comment on above: Performed By: #### C BCA, BMP, 17221-2, LIVR, 54237-5, 33677-5, 5643-2, 3040-3 #### [facility] ([id number]) [address] [place] [address] 84188 Bilirubin [Mass/Vol] 0.2 mg/dL Low 0.3-1.2 [facility] Comment on above: Performed By: #### C BCA, BMP, 09502-4, LIVR, 72926-0, 69672-7, 5643-2, 3040-3 #### [facility] ([id number]) [address] [place] [address] 91051 Bilirubin.indirect [Mass/Vol] 0.1 mg/dL Normal <=0.4 [facility] Comment on above: Performed By: #### C BCA, BMP, 62368-3, LIVR, 19116-5, 49152-4, 5643-2, 3040-3 #### [facility] ([id number]) [address] [place] [address] 99217 Protein [Mass/Vol] 6.8 g/dL Normal 6.0-8.0 [facility] Comment on above: Performed By: #### C BCA, BMP, 04702-8, LIVR, 36180-2, 26265-7, 5643-2, 3040-3 #### [facility] ([id number]) [address] [place] [address] 00677 MAGNESIUMon 10-11-2024 Magnesium [Mass/Vol] 2.3 mg/dL Normal 1.8-2.6 [facility] Comment on above: Performed By: #### C BCA, BMP, 66186-7, LIVR, 39964-2, 76210-5, 5643-2, 3040-3 #### [facility] ([id number]) [address] [place] [address] 23312 PROTIME AND INRon 10-11-2024 INR 0.9 Normal 0.9-1.2 [facility] Comment on above: Performed By: #### C BCA, BMP, 78468-3, LIVR, 33460-0, 58285-2, 5643-2, 3040-3 #### [facility] ([id number]) [address] [place] [address] 58844 PT Coag (PPP) [Time] 10.3 s Normal 9.8-13.2 [facility] Comment on above: Performed By: #### C BCA, BMP, 37504-9, LIVR, 58120-0, 80418-6, 5643-2, 3040-3 #### [facility] ([id number]) [address] [place] [address] Abdomen/Pelvis w/ Contras ton 10-10-2024 CT Abdomen/Pelvis w/ Contrast Exam Date/Time: 10/09/2024 15:14 EDT Reason for Exam: ABDOMINAL PAIN, ACUTE, NONLOCALIZED;Other (please specify) Report IMPRESSION: MILD TO MODERATE BILIARY DILATATION, POSSIBLY CHRONIC POSTCHOLECYSTECTOMY. MODERATE PANCREATIC DUCTAL DILATATION, POSSIBLY THE CHRONIC SEQUELA OF PREVIOUS PANCREATITIS. NONSPECIFIC SOFT TISSUE PROMINENCE OF THE PAPILLA, WHICH MAY BE PERISTALSIS, A FLUID-FILLED SMALL DUODENAL DIVERTICULUM, OR MALIGNANCY. CONSIDER EGD. Marco A Aguilar PA-C was notified 10/10/2024 at approximately 10:00 AM. EXAM: CT Abdomen/Pelvis w/ Contrast DATE: 10/09/2024 2:46 PM CLINICAL HISTORY: ABDOMINAL PAIN, ACUTE, NONLOCALIZED. COMPARISON: None available. TECHNIQUE: Spiral imaging was obtained of the abdomen and pelvis after the uneventful infusion of intravenous contrast. All CT scans at this facility use dose modulation, iterative reconstruction, and/or weight based dosing when appropriate to reduce radiation dose to as low as reasonably achievable. Unless otherwise stated, incidental findings identified in this report do not require routine follow-up imaging. FINDINGS: Liver: No enlargement, significant fatty infiltration, suspicious mass or lesion. Biliary: The gallbladder has been removed. Mild to moderate predominantly extrahepatic biliary dilatation, with abrupt transition near the papilla. No radiodense calculi. The common duct measures approximately 1 cm in caliber at the patel hepatis. Pancreas: Nonspecific pancreatic duct dilatation to approximately 5 to 6 mm. No organized fluid collection or surrounding inflammation. Spleen: Within normal limits. Adrenals: Approximately 1.5 cm left adrenal adenoma. Otherwise, unremarkable. Kidneys: No hydronephrosis, significant urinary tract calculi, or suspicious mass. GI tract:Nonspecific heterogeneous soft tissue density/prominence near the papilla (Series 2, Image 22) (Series 3, Image 22). No abnormal dilation, wall thickening, or Report other suspicious mass. Normal appendix. Lymph nodes: No pathologically enlarged lymph nodes. Vasculature: No aneurysm or dissection. Mild predominantly calcified atherosclerotic plaquing. Mesentery/peritoneum/retr operitoneum: No free fluid, organized fluid collection, inflammatory changes, or suspicious mass. Pelvis: The urinary bladder is unremarkable. Previous hysterectomy. Musculoskeletal: No acute osseous findings identified. Moderate degenerative changes, predominantly L1-L2 lower lumbar levels. Lower thorax: Noncontributory. GFR (mL/min/1/73m2) >60 Contrast: Isovue 300 Contrast amount in ml's: 100.00 Rectal Contrast Given? No Ordering Provider: Marco A Aguilar FINAL REPORT Dictated: 10/10/2024 10:13 am Brandon Zepeda MD Signed (Electronic Signature): 10/10/2024 10:13 am Signed by: Katelyn ALEXANDER, Brandon Sullivan Transcribed by: ELMER Technologist: ANTONI Jones [facility] FRANNIEon 10-09-2024 Anion gap [Moles/Vol] 12 mmol/L Normal 6-16 [facility] Comment on above: Performed By: #### 2 [id number] #### [facility] [address] [place] [address] BUN/Creat Ratio 11 No Units Normal 10-20 [facility] Comment on above: Performed By: #### 2 [id number] #### [facility] [address] [place] [address] Calcium [Mass/Vol] 10.1 mg/dL Normal 8.9-11.1 [facility] Comment on above: Performed By: #### 2 [id number] #### [facility] [address] [place] [address] Chloride [Moles/Vol] 107 mmol/L Normal 101-111 [facility] Comment on above: Performed By: #### 2 [id number] #### [facility] [address] [place] [address] CO2 [Moles/Vol] 25 mmol/L Normal 21-31 [facility] Comment on above: Performed By: #### 2 [id number] #### [facility] [address] [place] [address] Creatinine [Mass/Vol] 0.8 mg/dL Normal 0.5-1.3 [facility] Comment on above: Performed By: #### 2 [id number] #### [facility] [address] [place] [address] Glucose [Mass/Vol] 87 mg/dL Normal 55-199 [facility] Comment on above: Performed By: #### 2 [id number] #### [facility] [facility] [address] [place] [address] Potassium [Moles/Vol] 4.2 mmol/L Normal 3.5-5.3 [facility] Comment on above: Performed By: #### 2 [id number] #### [facility] [address] [place] [address] Sodium [Moles/Vol] 140 mmol/L Normal 135-145 [facility] Comment on above: Performed By: #### 2 [id number] #### [facility] [address] [place] [address] Urea nitrogen [Mass/Vol] 9 mg/dL Normal 5-21 [facility] Comment on above: Performed By: #### 2 [id number] #### [facility] [address] [place] [address] CBC w/ Auto Diffon 5 Basophil Absolute 0.1 E9/L Normal 0.0-0.2 [facility] Comment on above: Performed By: #### 2 [id number] #### [facility] [address] [place] [address] Basophils/100 WBC (Bld) 0.9 % Normal 0.0-2.0 [facility] Comment on above: Performed By: #### 2 [id number] #### [facility] [address] [place] [address] Eos Absolute 0.2 E9/L Normal 0.0-0.5 [facility] Comment on above: Performed By: #### 2 [id number] #### [facility] [address] [place] [address] Eosinophils/100 WBC (Bld) 2.8 % Normal 0.0-8.0 [facility] Comment on above: Performed By: #### 2 [id number] #### [facility] [address] [place] [address] Erythrocyte distribution width (RBC) [Ratio] 13.7 % Normal 10.9-14.2 [facility] Comment on above: Performed By: #### 2 [id number] #### [facility] [address] [place] [address] Hematocrit (Bld) [Volume fraction] 44.7 % Normal 34.0-46.0 [facility] Comment on above: Performed By: #### 2 [id number] #### [facility] [address] [place] [address] Hemoglobin (Bld) [Mass/Vol] 15.3 g/dL Normal 12.0-16.0 [facility] Comment on above: Performed By: #### 2 [id number] #### [facility] [address] [place] [address] Lymph Absolute 2.4 E9/L Normal 1.0-4.0 [facility] Comment on above: Performed By: #### 2 [id number] #### [facility] [address] [place] [address] Lymphocytes/100 WBC (Bld) 31.5 % Normal 14.0-50.0 [facility] Comment on above: Performed By: #### 2 [id number] #### [facility] [address] [place] [address] MCH (RBC) [Entitic mass] 33.3 pg Normal 27.0-34.0 [facility] Comment on above: Performed By: #### 2 [id number] #### [facility] [address] [place] [address] MCHC (RBC) [Mass/Vol] 34.3 g/dL Normal 31.4-36.0 [facility] Comment on above: Performed By: #### 2 [id number] #### [facility] [address] [place] [address] MCV (RBC) [Entitic vol] 97.0 fL Normal 80.0-100.0 [facility] Comment on above: Performed By: #### 2 595598 #### [facility] [address] [place] [address] Gregory Absolute 0.7 E9/L Normal 0.2-1.0 [facility] Comment on above: Performed By: #### 2 [id number] #### [facility] [address] [place] [address] Monocytes/100 WBC (Bld) 9.2 % Normal 4.0-14.0 [facility] Comment on above: Performed By: #### 2 [id number] #### [facility] [address] [place] [address] Neutro Absolute 4.3 E9/L Normal 2.0-7.5 [facility] Comment on above: Performed By: #### 2 659374 #### [facility] [address] [place] [address] Neutro Auto 55.6 % Normal 36.0-75.0 [facility] Comment on above: Performed By: #### 2 290319 #### [facility] [address] [place] [address] Platelet 255.0 E9/L Normal 150.0-500. 0 [facility] Comment on above: Performed By: #### 2 [id number] #### [facility] [address] [place] [address] Platelet mean volume (Bld) [Entitic vol] 7.7 fL Normal 6.4-10.8 [facility] Comment on above: Performed By: #### 2 [id number] #### [facility] [address] [place] [address] RBC 4.6 E12/L Normal 4.3-5.9 [facility] Comment on above: Performed By: #### 2 [id number] #### [facility] [address] [place] [address] WBC 7.7 E9/L Normal 4.0-11.0 [facility] Comment on above: Performed By: #### 2 [id number] #### [facility] [address] [place] [address] ED Clinical Summaryon 2024 ED Clinical Summary ED Clinical Summary [address] [address] ED Clinical Summary Person Information Name: CHIOMA ARCINIEGA[place] Age: 54 Years : 1970 Sex: Female Language: Congolese PCP: NONE, XXXX Marital Status: Visit Id: Visit Reason: Vomiting; Nausea; Abdominal pain; POSS PANCREATITIS FLARE UP - V/D Speciality: Acuity: 3 Enc Type: Emergency Med Service: Emergency Arrival: 10/09/2024 13:21:49 Discharge: 10/09/2024 17:59:08 LOS: 000 04:38 Checkin: 10/09/2024 13:21:49 Checkout: 10/09/2024 17:59:08 Dispo Type: Home (Routine DC) EVENTS: Event Name Event Status Request Date/Time Start Date/Time Complete Date/Time Arrive Complete 10/09/2024 13:21:49 10/09/2024 13:21:49 10/09/2024 13:21:49 Document Home Meds Request 10/09/2024 13:21:49 Triage Complete 10/09/2024 13:21:49 10/09/2024 13:27:59 10/09/2024 13:27:59 Bed Assign Complete 10/09/2024 13:24:02 10/09/2024 13:24:02 10/09/2024 13:24:02 Dr Exam Complete 10/09/2024 13:24:02 10/09/2024 13:33:46 10/09/2024 13:33:46 RN Exam Complete 10/09/2024 13:24:02 10/09/2024 14:04:13 10/09/2024 14:04:13 Registration Complete 10/09/2024 13:25:02 10/09/2024 13:25:02 10/09/2024 13:25:02 Reg Complete Request 10/09/2024 13:25:02 Reg Bed Request Complete 10/09/2024 13:25:02 10/09/2024 13:25:02 10/09/2024 13:25:02 Registration Request 10/09/2024 13:33:46 CT Complete 10/09/2024 13:41:49 10/09/2024 14:46:53 10/09/2024 15:14:15 Meds Admin Complete 10/09/2024 13:41:49 10/09/2024 14:10:58 Pending Labs Complete 10/09/2024 13:41:49 10/09/2024 17:17:21 Lab Complete 10/09/2024 13:41:49 10/09/2024 14:44:55 Patient Care Request 10/09/2024 13:41:49 Meds Admin Complete 10/09/2024 13:45:46 10/09/2024 14:10:59 Dr Exam Complete 10/09/2024 13:47:48 10/09/2024 13:47:48 10/09/2024 13:47:48 Pending Labs Complete 10/09/2024 14:18:11 10/09/2024 14:18:11 10/09/2024 14:44:55 Lab Complete 10/09/2024 14:18:11 10/09/2024 14:18:11 10/09/2024 14:44:55 Meds Admin Complete 10/09/2024 15:56:44 10/09/2024 16:07:07 Meds Admin Complete 10/09/2024 16:08:18 10/09/2024 16:14:33 Discharge Complete 10/09/2024 17:51:37 10/09/2024 17:59:13 10/09/2024 17:59:13 Transfer Complete 10/09/2024 17:59:13 10/09/2024 17:59:13 10/09/2024 17:59:13 ADDRESS: [address] [place] [id number] [facility] DOC NOTES: MEDICAL INFORMATION: Prescriptions Given: Medications to Continue with No Changes Other Medications promethazine (promethazine 25 mg Tab) 1 Tablets By Mouth 3 times a day. Refills: 0. PATIENT EDUCATION INFORMATION: Instructions: Chronic Pancreatitis Follow up: With: Address: When: [facility] [phone] In 3 days 10/12/2024 DIAGNOSIS: 1:Abdominal pain; Chronic pancreatitis Normal [facility] ED Patient Summaryon 025 ED Patient Summary ED Patient Summary [address] [address] Patient Discharge Instructions Person Information Name: CHIOMA ARCINIEGA Age: 54 Years Arrival Date: 10/09/2024 13:21:49 Discharge Diagnosis: 1:Abdominal pain; Chronic pancreatitis Primary Care Physician: NONE, XXXX Provider Information Primary Provider: Ish Stokes MD Advanced Supervisor Buffing And Pasting:Marco A Aguilar PA-C The exam and treatment you received in the Emergency Department were for an urgent problem and are not intended as complete care. It is important that you follow up with a doctor, nurse practitioner, or physician???s application assistant for ongoing care. If your symptoms become worse or you do not improve as expected and you are unable to reach your usual health care provider, you should return to the Emergency Department. We are available 24 hours a day. CHIOMA ARCINIEGA has been given the following list of patient education materials, prescriptions and follow-up instructions: Follow-up Instructions: With: Address: When: [facility] [phone] In 3 days 10/12/2024 In the event that this physician does not participate in your insurance network, please consult with your insurance company to find a nearby participating provider. Patient Education Materials: Chronic Pancreatitis A MESSAGE TO ALL PATIENTS REGARDING OPIOIDS PRESCRIPTION OPIOIDS: WHAT YOU NEED TO KNOW Prescription opioids can be used to help relieve lemcfkjz-ml-jjbqav pain and are often prescribed following a surgery or injury, or for certain health conditions. These medications can be an important part of the treatment but also come with serious risks. It is important to work with your healthcare provider to make sure you are getting the safest, most effective care. WHAT ARE THE RISKS AND SIDE EFFECTS OF OPIOID USE? Prescription opioids carry serious risks of addiction and overdose, especially with prolonged use. An opioid overdose, often marked by slowed breathing, can cause sudden . The use of prescription opioids can have a number of side effects as well, even when taken as directed: ??? Tolerance???meaning you might need to take more of the medication for the same pain relief ??? Physical dependence???meaning you have symptoms of withdrawal when a medication is stopped ??? Increased sensitivity to pain ??? Constipation ??? Nausea, vomiting, and dry mouth ??? Sleepiness and dizziness ??? Confusion ??? Depression ??? Low levels of testosterone that can result in lower sex drive, energy, and strength ??? Itching and sweating RISKS ARE GREATER WITH: ??? History of drug misuse, substance use disorder, or overdose ??? Mental health conditions (such as depression or anxiety) ??? Sleep apnea ??? Older age (65 years and older) ??? Avoid alcohol while taking prescription opioids. Also, unless specifically advised by your health care provider, medications to avoid include: ??? Benzodiazepines (such as Xanax or Valium) ??? Muscle relaxants (such as Soma or Flexeril) ??? Hypnotics (such as Ambien or Lunesta) ??? Other prescription opioids KNOW YOUR OPTIONS Talk to your health care provider about ways to manage your pain that don???t involve prescription opioids. Some of these options may actually work better and have fewer risks and side effects. Options may include: ??? Pain relievers such as acetaminophen, ibuprofen, and naproxen ??? Some medication that are also used for depression or seizures ??? Physical therapy and exercise ??? Cognitive behavioral therapy, a psychological, goal-directed approach, in which patients learn how to modify physical, behavioral, and emotional triggers of pain and stress. IF YOU ARE PRESCRIBED OPIOIDS FOR PAIN: ??? Never take opioids in greater amounts or more often than prescribed. ??? Follow up with your primary health care provider. o Work together to create a plan on how to manage your pain. o Talk about ways to help manage your pain that don???t involve prescription opioids. o Talk about any and all concerns and side effects. ??? Help prevent misuse and abuse o Never sell or share prescription opioids. o Never use another person???s prescription opioids. ??? Store prescription opioids in a secure place and out of reach of others (this may include visitors, children, friends, and family). ??? Safely dispose of unused prescription opioids: Find your community drug take-back program or your pharmacy mail-back program, or flush them down the toilet, following guidance from the Food and Drug Administration (www.fda.gov/Drugs/Resour cesForYou). ??? Visit www.cdc.gov/drugoverdose to learn about the risks of opioids abuse and overdose. ??? If you believe you may be struggling with addiction, tell your health attending ambulatory care and ask for guidance or call [facility] (more content not included)... Normal [facility] Hep Func Panelon 10-09-2024 Albumin [Mass/Vol] 4.5 g/dL Normal 3.3-5.0 [facility] Comment on above: Performed By: #### 2 [id number] #### [facility] [address] [place] [address] Albumin/Globulin [Mass ratio] 1.6 {ratio} Normal 1.1-2.2 [facility] Comment on above: Performed By: #### 2 [id number] #### [facility] [address] [place] [address] Alk Phos 114 Int._Unit/L High 21-98 [facility] Comment on above: Performed By: #### 2 [id number] #### [facility] [address] [place] [address] ALT 9 Int._Unit/L Normal 6-46 [facility] Comment on above: Performed By: #### 2 [id number] #### [facility] [address] [place] [address] AST 18 Int._Unit/L Normal 5-43 [facility] Comment on above: Performed By: #### 2 [id number] #### [facility] [address] [place] [address] Bili Direct 0.0 mg/dL Normal 0.0-0.4 [facility] Comment on above: Performed By: #### 2 [id number] #### [facility] [address] [place] [address] Bili Indirect 0.3 mg/dL Normal 0.1-0.9 [facility] Comment on above: Performed By: #### 2 [id number] #### [facility] [address] [place] [address] Bili Total 0.3 mg/dL Normal 0.0-1.1 [facility] Comment on above: Performed By: #### 2 [id number] #### [facility] [address] [place] [address] Globulin (S) [Mass/Vol] 2.8 g/dL Normal 1.4-4.0 [facility] Comment on above: Performed By: #### 2 [id number] #### [facility] [address] [place] [address] Protein [Mass/Vol] 7.3 g/dL Normal 6.0-7.8 [facility] Comment on above: Performed By: #### 2 [id number] #### [facility] [address] [place] [address] Lipase Levelon 10-09-2024 Lipase Lvl 98 unit/L High 13-58 [facility] Comment on above: Performed By: #### 2 [id number] #### [facility] [address] [place] [address] UA with Cult Rflxon 10-10-19 25 Color (U) Colorless Abnormal Yellow [facility] Comment on above: Result Comment: Micr oscopic readings are only performed on those samples that meet specific criteria set forth by [facility]. Performed By: #### 4 [id number] #### [facility] [address] [place] [address] Glucose (U) [Mass/Vol] Negative Normal Negative [facility] Comment on above: Performed By: #### 4 [id number] #### [facility] [address] [place] [address] Ketones Ql (U) Negative Normal Negative [facility] Comment on above: Performed By: #### 4 [id number] #### [facility] [address] [place] [address] UA Blood Negative Normal Negative [facility] Comment on above: Performed By: #### 4 [id number] #### [facility] [address] [place] [address] UA Clarity Clear Normal Clear [facility] Comment on above: Performed By: #### 4 [id number] #### [facility] [address] [place] [address] UA Leuk Est Negative Normal Negative [facility] Comment on above: Performed By: #### 4 [id number] #### [facility] [address] [place] [address] UA Nitrite Negative Normal Negative [facility] Comment on above: Performed By: #### 4 [id number] #### [facility] [address] [place] [address] UA pH 5.5 Invalid Interpretation Code 5.0-9.0 [facility] Comment on above: Performed By: #### 4 [id number] #### [facility] [address] [place] [address] UA Protein Negative Normal Negative [facility] Comment on above: Performed By: #### 4 [id number] #### [facility] [address] [place] [address] UA Spec Grav >1.050 Invalid Interpretation Code 1.005-1.03 0 [facility] Comment on above: Performed By: #### 4 [id number] #### [facility] [address] [place] [address] UA Urobilinogen Negative Normal Negative [facility] Comment on above: Performed By: #### 4 [id number] #### [facility] [address] [place] [address] Urobilinogen (U) [Mass/Vol] Negative Normal Negative [facility] Comment on above: Performed By: #### 4 [id number] #### [facility] [address] [place] [address] UA Spec Desc Clean Catch Normal [facility] Comment on above: Performed By: #### 4 [id number] #### [facility] [address] [place] [address] eGFRon 10-09-2024 eGFR 87 mL/min/1.73 m2 Normal >=59 [facility] Comment on above: Performed By: #### 1 [id number] #### [facility] [address] [place] [address] BMPon 10-03-2024 Anion gap [Moles/Vol] 10 mmol/L Normal 6-16 [facility] Comment on above: Performed By: #### 2 [id number] #### [facility] [address] [place] [address] BUN/Creat Ratio 11 No Units Normal 10-20 [facility] Comment on above: Performed By: #### 2 [id number] #### [facility] [address] [place] [address] Calcium [Mass/Vol] 9.9 mg/dL Normal 8.9-11.1 [facility] Comment on above: Performed By: #### 2 [id number] #### [facility] [address] [place] [address] Chloride [Moles/Vol] 107 mmol/L Normal 101-111 [facility] Comment on above: Performed By: #### 2 [id number] #### [facility] [address] [place] [address] CO2 [Moles/Vol] 25 mmol/L Normal 21-31 [facility] Comment on above: Performed By: #### 2 [id number] #### [facility] [address] [place] [address] Creatinine [Mass/Vol] 0.8 mg/dL Normal 0.5-1.3 [facility] Comment on above: Performed By: #### 2 [id number] #### [facility] [address] [place] [address] Glucose [Mass/Vol] 112 mg/dL Normal 55-199 [facility] Comment on above: Performed By: #### 2 [id number] #### [facility] [address] [place] [address] Potassium [Moles/Vol] 3.6 mmol/L Normal 3.5-5.3 [facility] Comment on above: Performed By: #### 2 [id number] #### [facility] [address] [place] [address] Sodium [Moles/Vol] 138 mmol/L Normal 135-145 [facility] Comment on above: Performed By: #### 2 [id number] #### [facility] [address] [place] [address] Urea nitrogen [Mass/Vol] 9 mg/dL Normal 5-21 [facility] Comment on above: Performed By: #### 2 [id number] #### [facility] [address] [place] [address] CBC w/ Auto Diffon 5 Basophil Absolute 0.1 E9/L Normal 0.0-0.2 [facility] Comment on above: Performed By: #### 2 [id number] #### [facility] [address] [place] [address] Basophils/100 WBC (Bld) 1.1 % Normal 0.0-2.0 [facility] Comment on above: Performed By: #### 2 [id number] #### [facility] [address] [place] [address] Eos Absolute 0.1 E9/L Normal 0.0-0.5 [facility] Comment on above: Performed By: #### 2 [id number] #### [facility] [address] [place] [address] Eosinophils/100 WBC (Bld) 1.4 % Normal 0.0-8.0 [facility] Comment on above: Performed By: #### 2 [id number] #### [facility] [address] [place] [address] Erythrocyte distribution width (RBC) [Ratio] 13.5 % Normal 10.9-14.2 [facility] Comment on above: Performed By: #### 2 [id number] #### [facility] [address] [place] [address] Hematocrit (Bld) [Volume fraction] 42.5 % Normal 34.0-46.0 [facility] Comment on above: Performed By: #### 2 [id number] #### [facility] [address] [place] [address] Hemoglobin (Bld) [Mass/Vol] 14.3 g/dL Normal 12.0-16.0 [facility] Comment on above: Performed By: #### 2 [id number] #### [facility] [address] [place] [address] Lymph Absolute 2.8 E9/L Normal 1.0-4.0 [facility] Comment on above: Performed By: #### 2 [id number] #### [facility] [address] [place] [address] Lymphocytes/100 WBC (Bld) 27.2 % Normal 14.0-50.0 [facility] Comment on above: Performed By: #### 2 [id number] #### [facility] [address] [place] [address] MCH (RBC) [Entitic mass] 32.6 pg Normal 27.0-34.0 [facility] Comment on above: Performed By: #### 2 [id number] #### [facility] [address] [place] [address] MCHC (RBC) [Mass/Vol] 33.7 g/dL Normal 31.4-36.0 [facility] Comment on above: Performed By: #### 2 [id number] #### [facility] [address] [place] [address] MCV (RBC) [Entitic vol] 96.8 fL Normal 80.0-100.0 [facility] Comment on above: Performed By: #### 2 [id number] #### [facility] [address] [place] [address] Gregory Absolute 0.9 E9/L Normal 0.2-1.0 [facility] Comment on above: Performed By: #### 2 [id number] #### [facility] [address] [place] [address] Monocytes/100 WBC (Bld) 8.9 % Normal 4.0-14.0 [facility] Comment on above: Performed By: #### 2 [id number] #### [facility] [address] [place] [address] Neutro Absolute 6.3 E9/L Normal 2.0-7.5 [facility] Comment on above: Performed By: #### 2 [id number] #### [facility] [address] [place] [address] Neutro Auto 61.4 % Normal 36.0-75.0 [facility] Comment on above: Performed By: #### 2 [id number] #### [facility] [address] [place] [address] Platelet 296.0 E9/L Normal 150.0-500. 0 [facility] Comment on above: Performed By: #### 2 [id number] #### [facility] [address] [place] [address] Platelet mean volume (Bld) [Entitic vol] 7.9 fL Normal 6.4-10.8 [facility] Comment on above: Performed By: #### 2 [id number] #### [facility] [address] [place] [address] RBC 4.4 E12/L Normal 4.3-5.9 [facility] Comment on above: Performed By: #### 2 [id number] #### [facility] [address] [place] [address] WBC 10.3 E9/L Normal 4.0-11.0 [facility] Comment on above: Performed By: #### 2 [id number] #### [facility] [address] [place] [address] ED Clinical Summaryon 2024 ED Clinical Summary ED Clinical Summary [address] [address] ED Clinical Summary Person Information Name: CHIOMA ARCINIEGA/[facility] Age: 54 Years : 1970 Sex: Female Language: Congolese PCP: NONE, XXXX Marital Status: Visit Id: Visit Reason: Vomiting; Abdominal pain; HX CHRONIC PANCREATITIS - FLARE UP Speciality: Acuity: 3 Enc Type: Emergency Med Service: Emergency Arrival: 10/03/2024 17:23:23 Discharge: 10/03/2024 18:49:18 LOS: 000 01:26 Checkin: 10/03/2024 17:23:23 Checkout: 10/03/2024 18:49:18 Dispo Type: Home (Routine DC) EVENTS: Event Name Event Status Request Date/Time Start Date/Time Complete Date/Time Arrive Complete 10/03/2024 17:23:23 10/03/2024 17:23:23 10/03/2024 17:23:23 Document Home Meds Request 10/03/2024 17:23:23 Triage Complete 10/03/2024 17:23:23 10/03/2024 17:40:18 10/03/2024 17:40:18 Bed Assign Complete 10/03/2024 17:29:18 10/03/2024 17:29:18 10/03/2024 17:29:18 Dr Exam Complete 10/03/2024 17:29:18 10/03/2024 17:36:22 10/03/2024 17:36:22 RN Exam Complete 10/03/2024 17:29:18 10/03/2024 18:21:58 10/03/2024 18:21:58 Registration Complete 10/03/2024 17:36:22 10/03/2024 17:38:40 10/03/2024 17:38:40 Dr Exam Complete 10/03/2024 17:36:52 10/03/2024 17:36:52 10/03/2024 17:36:52 Reg Complete Request 10/03/2024 17:38:40 Reg Bed Request Complete 10/03/2024 17:38:40 10/03/2024 17:38:40 10/03/2024 17:38:40 Meds Admin Complete 10/03/2024 17:50:40 10/03/2024 18:06:05 Pending Labs Complete 10/03/2024 17:50:40 10/03/2024 18:24:53 Lab Complete 10/03/2024 17:50:40 10/03/2024 18:24:53 Pending Labs Complete 10/03/2024 17:55:37 10/03/2024 17:55:37 10/03/2024 18:24:53 Lab Complete 10/03/2024 17:55:37 10/03/2024 17:55:37 10/03/2024 18:24:53 Meds Admin Complete 10/03/2024 18:03:42 10/03/2024 18:34:13 Discharge Complete 10/03/2024 18:38:02 10/03/2024 18:49:22 10/03/2024 18:49:22 Pending Labs Complete 10/03/2024 18:45:13 10/03/2024 18:45:13 10/03/2024 18:45:13 Transfer Complete 10/03/2024 18:49:22 10/03/2024 18:49:22 10/03/2024 18:49:22 ADDRESS: [facility] [address] [place] [id number] [facility] DOC NOTES: MEDICAL INFORMATION: Prescriptions Given: New Medications Printed Prescriptions promethazine (promethazine 25 mg Tab) 1 Tablets By Mouth 3 times a day. Refills: 0. PATIENT EDUCATION INFORMATION: Instructions: Chronic Pancreatitis Follow up: With: Address: When: XXXX NONE , [place] In 3 days 10/06/2024 Comments: follow up with your GI physician DIAGNOSIS: Chronic pancreatitis Normal [facility] ED Note-Physicianon 10-04-19 25 ED Note-Physician ED Note-Physician Basic Information Time Seen: Levar Jara PA-C 10/03/2024 17:36 Chief Complaint pt states she has chronic pancretitis and having a flareup. Pt states that she is having N/V and upper abdominal pain that radiates to back. History of Present Illness 54-year-old female comes to the ED for evaluation of abdominal pain and concern for pancreatitis. She has has a history of chronic pancreatitis. She used to drink alcohol but not anymore. She states that she recently went out to dinner and believes that she caused a flare by the food she ate. She does complain of nausea and vomiting with abdominal pain. No fever or chills. No chest pain or shortness of breath. No urinary symptoms. 1 episode of diarrhea, otherwise normal bowel function. Tried Zofran and Bentyl without relief. Follows with GI out of the [facility] Review of Systems A 10 point review of systems is negative except as noted above. Medical and Surgical History: Reviewed and noted Social history: Lives at home Tobacco: Denies Physical Exam Vitals & Measurements T: 36.8 ???C(Oral) HR: 96(Peripheral) RR: 18 BP: 137/91 SpO2: 99% HT: 157 cm WT: 55.6 kg BMI: 22.56 Nurses notes and vital signs reviewed and patient is not hypoxic. General: The patient appears well and in no significant distress Patient is resting comfortably on the exam bed. Skin: Warm, dry, no pallor noted. Head: Atraumatic. Neck: No JVD. Eye: Normal conjunctiva. Ears, Nose, Mouth, and Throat: Moist mucous membranes Cardiovascular: Strong distal pulses. Chest wall: Respiratory: Respirations are nonlabored. Lungs clear to auscultation. Back: Normal range of motion, no CVA tenderness. Musculoskeletal: Normal ROM with no gross deformity. Gastrointestinal: Abdomen is soft throughout. Mild tenderness of the epigastrium. No guarding rebound or rigidity. No distention. Urological: Neurological: Awake and alert. No focal deficits. Follows commands. GCS 15. Psychiatric: Cooperative. Medical Decision Making Patient presents with abdominal pain and concerns for acute on chronic pancreatitis. Overall she is well-appearing. Abdomen is mildly tender without peritoneal findings. She has multiple drug allergies and is treated with pain medications and IV fluids. Laboratory studies are reviewed and noted. Minimal lipase elevation. Patient continues to be well-appearing. Pain and vomiting well-controlled. She is discharged home to follow-up with her GI physician. Patient was encouraged to return to the ED if symptoms worsen or change. Assessment/Plan Chronic pancreatitis (K86.1: Other chronic pancreatitis) Orders: HYDROmorphone, 1 mg = 1 mL, Injection, IV Push, Once, Stop date 10/03/24 18:03:00 EDT, STAT, Start date 10/03/24 18:03:00 EDT, 10/03/24 18:03:00 EDT pantoprazole, 40 mg = 10 mL, Injection, IV Push, Once, Stop date 10/03/24 18:03:00 EDT, STAT, Start date 10/03/24 18:03:00 EDT, 10/03/24 18:03:00 EDT promethazine, 25 mg = 1 tab(s), Oral, TID, # 15 tab(s), Refills(s) 0 Sodium Chloride 0.9% intravenous solution, 1,000 mL, Soln-IV, IV, Once, Stop date 10/03/24 17:50:00 EDT, STAT, Start date 10/03/24 17:50:00 EDT, Infuse over 61, minute(s) Basic Metabolic Panel CBC w/ Auto Diff eGFR Hepatic Function Panel Lipase Level Disposition Plan Patient Discharge Condition Disposition: Discharged home Condition: Improved and stable Counseled: Patient and/or family were counseled to workup, results, treatment plan and follow-up recommendations Discharge Prescription List Prescriptions promethazine 25 mg Tab, 25 mg= 1 tab(s), Oral, TID Follow-up With When Contact Information XXXX NONE In 3 days 10/06/2024 EDT [place] Additional Instructions: follow up with your GI physician Patient Education Chronic Pancreatitis Attestation I performed a substantive part of the MDM during the patient???s E/M visit. I personally made or approved the documented management plan and acknowledge its risk of complications. (Independent Interpretation) My (EKG/X-Ray/US/CT) interpretation as above. (Discussion) Management/test interpretation discussed with APC. This report was transcribed using voice recognition software. Every effort was made to ensure accuracy, however, inadvertently computerized orange picker mistakes may be present. Appropriate healthcare PPE was used in evaluating this patient. Problem List/Past Medical History Ongoing No qualifying data Historical No qualifying data Medications Inpatient NS 1000 ml Bolus, 1000 mL, IV, Once Home No active home medications Allergies haloperidol (Swelling, Hives) morphine (Hives, Swelling) penicillin (Swelling) traMADol (Swelling, Hives) Compazine (Hives) Toradol (Swelling) fentaNYL (Hives) ibuprofen (Hives, Swelling) Lab Results WBC: 10.3 E9/L (10/03/24 17:52:00) RBC: 4.4 E12/L (10/03/24 17:52:00) HGB: 14.3 gm/dL (10/03/24 17:52:00) Hct: 42.5 % (10/03/24 17:52:00) MCV: 96.8 fL (10/03/24 1 (more content not included)... Normal [facility] Comment on above: Result Comment: Elec tronically Signed By: Marek MARSH, Levar\.br\Date and Time Signed: 10/03/24 18:38 EDT\.br\Electronically Co-Signed By: Darrel Ferrer DO\.br\Date and Time Co-Signed: 10/03/24 18:48 EDT ED Patient Summaryon 025 ED Patient Summary ED Patient Summary [place] [id number] Patient Discharge Instructions Person Information Name: CHIOMA ARCINIEGA Age: 54 Years Arrival Date: 10/03/2024 17:23:23 Discharge Diagnosis: Chronic pancreatitis Primary Care Physician: FARIDA, XXXX Provider Information Primary Provider: Darrel Ferrer DO Advanced Supervisor Buffing And Pasting:Levar Jara PA-C The exam and treatment you received in the Emergency Department were for an urgent problem and are not intended as complete care. It is important that you follow up with a doctor, nurse practitioner, or physician???s application assistant for ongoing care. If your symptoms become worse or you do not improve as expected and you are unable to reach your usual health care provider, you should return to the Emergency Department. We are available 24 hours a day. CHIOMA ARCINIEGA has been given the following list of patient education materials, prescriptions and follow-up instructions: Follow-up Instructions: With: Address: When: XXXX [place] In 3 days 10/06/2024 Comments: follow up with your GI physician In the event that this physician does not participate in your insurance network, please consult with your insurance company to find a nearby participating provider. Patient Education Materials: Chronic Pancreatitis A MESSAGE TO ALL PATIENTS REGARDING OPIOIDS PRESCRIPTION OPIOIDS: WHAT YOU NEED TO KNOW Prescription opioids can be used to help relieve [id number]-wolsfr pain and are often prescribed following a surgery or injury, or for certain health conditions. These medications can be an important part of the treatment but also come with serious risks. It is important to work with your healthcare provider to make sure you are getting the safest, most effective care. WHAT ARE THE RISKS AND SIDE EFFECTS OF OPIOID USE? Prescription opioids carry serious risks of addiction and overdose, especially with prolonged use. An opioid overdose, often marked by slowed breathing, can cause sudden . The use of prescription opioids can have a number of side effects as well, even when taken as directed: ??? Tolerance???meaning you might need to take more of the medication for the same pain relief ??? Physical dependence???meaning you have symptoms of withdrawal when a medication is stopped ??? Increased sensitivity to pain ??? Constipation ??? Nausea, vomiting, and dry mouth ??? Sleepiness and dizziness ??? Confusion ??? Depression ??? Low levels of testosterone that can result in lower sex drive, energy, and strength ??? Itching and sweating RISKS ARE GREATER WITH: ??? History of drug misuse, substance use disorder, or overdose ??? Mental health conditions (such as depression or anxiety) ??? Sleep apnea ??? Older age (65 years and older) ??? Avoid alcohol while taking prescription opioids. Also, unless specifically advised by your health care provider, medications to avoid include: ??? Benzodiazepines (such as Xanax or Valium) ??? Muscle relaxants (such as Soma or Flexeril) ??? Hypnotics (such as Ambien or Lunesta) ??? Other prescription opioids KNOW YOUR OPTIONS Talk to your health care provider about ways to manage your pain that don???t involve prescription opioids. Some of these options may actually work better and have fewer risks and side effects. Options may include: ??? Pain relievers such as acetaminophen, ibuprofen, and naproxen ??? Some medication that are also used for depression or seizures ??? Physical therapy and exercise ??? Cognitive behavioral therapy, a psychological, goal-directed approach, in which patients learn how to modify physical, behavioral, and emotional triggers of pain and stress. IF YOU ARE PRESCRIBED OPIOIDS FOR PAIN: ??? Never take opioids in greater amounts or more often than prescribed. ??? Follow up with your primary health care provider. o Work together to create a plan on how to manage your pain. o Talk about ways to help manage your pain that don???t involve prescription opioids. o Talk about any and all concerns and side effects. ??? Help prevent misuse and abuse o Never sell or share prescription opioids. o Never use another person???s prescription opioids. ??? Store prescription opioids in a secure place and out of reach of others (this may include visitors, children, friends, and family). ??? Safely dispose of unused prescription opioids: Find your community drug take-back program or your pharmacy mail-back program, or flush them down the toilet, following guidance from the Food and Drug Administration (www.fda.gov/Drugs/Resour cesForYou). ??? Visit www.cdc.gov/drugoverdose to learn about the risks of opioids abuse and overdose. ??? If you believe you may be struggling with addiction, tell your health attending ambulatory care and ask for guidance or call (more content not included)... Normal [facility] Extra Blueon 10-03-2024 Tube Collected Plasma Yes Invalid Interpretation Code [facility] Comment on above: Performed By: #### 1 [id number] #### [facility] [address] [place] [address] Hep Func Panelon 10-03-2024 Albumin [Mass/Vol] 4.5 g/dL Normal 3.3-5.0 [facility] Comment on above: Performed By: #### 2 [id number] #### [facility] [address] [place] [address] Albumin/Globulin [Mass ratio] 1.8 {ratio} Normal 1.1-2.2 [facility] Comment on above: Performed By: #### 2 [id number] #### [facility] [address] [place] [address] Alk Phos 109 Int._Unit/L High 21-98 [facility] Comment on above: Performed By: #### 2 [id number] #### [facility] [address] [place] [address] ALT 9 Int._Unit/L Normal 6-46 [facility] Comment on above: Performed By: #### 2 [id number] #### [facility] [address] [place] [address] AST 16 Int._Unit/L Normal 5-43 [facility] Comment on above: Performed By: #### 2 [id number] #### [facility] [address] [place] [address] Bili Direct 0.0 mg/dL Normal 0.0-0.4 [facility] Comment on above: Performed By: #### 2 [id number] #### [facility] [address] [place] [address] Bili Indirect 0.3 mg/dL Normal 0.1-0.9 [facility] Comment on above: Performed By: #### 2 [id number] #### [facility] [address] [place] [address] Bili Total 0.3 mg/dL Normal 0.0-1.1 [facility] Comment on above: Performed By: #### 2 [id number] #### [facility] [address] [place] [address] Globulin (S) [Mass/Vol] 2.5 g/dL Normal 1.4-4.0 [facility] Comment on above: Performed By: #### 2 [id number] #### [facility] [address] [place] [address] Protein [Mass/Vol] 7.0 g/dL Normal 6.0-7.8 [facility] Comment on above: Performed By: #### 2 [id number] #### [facility] [address] [place] [address] Lipase Levelon 10-03-2024 Lipase Lvl 199 unit/L High 13-58 [facility] Comment on above: Performed By: #### 2 [id number] #### [facility] [address] [place] [address] eGFRon 10-03-2024 eGFR 87 mL/min/1.73 m2 Normal >=59 [facility] Comment on above: Performed By: #### 1 [id number] #### [facility] [address] [place] [address] CBC with Auto Differentialon 09-27-2024 Basophils (Bld) [#/Vol] 0.08 10*3/uL [facility] Basophils/100 WBC (Bld) 1 % 0 - 2 % [facility] Eosinophils (Bld) [#/Vol] 0.08 10*3/uL [facility] Eosinophils/100 WBC (Bld) 1 % 1 - 4 % [facility] Erythrocyte distribution width (RBC) [Ratio] 13 % 11.8 - 14.4 % [facility] Hematocrit (Bld) [Volume fraction] 45.2 % 36.3 - 47.1 % [facility] Hemoglobin (Bld) [Mass/Vol] 15.5 g/dL High 11.9 - 15.1 g/dL [facility] Immature granulocytes (Bld) [#/Vol] 0 10*3/uL [facility] Immature granulocytes/100 WBC (Bld) 0 % 0 [facility] Interpretation and review of laboratory results Abnormal [facility] Lymphocytes/100 WBC (Bld) 26 % 24 - 43 % [facility] Lymphocytes/100 WBC (Bld) 2.13 % [facility] MCH (RBC) [Entitic mass] 33.2 pg 25.2 - 33.5 pg [facility] MCHC (RBC) [Mass/Vol] 34.3 g/dL 28.4 - 34.8 g/dL [facility] MCV (RBC) [Entitic vol] 96.8 fL 82.6 - 102.9 fL [facility] Monocytes/100 WBC (Bld) 9 % 3 - 12 % [facility] Monocytes/100 WBC (Bld) 0.74 % [facility] Morphology Syed (Bld) [Interp] Normal [facility] Neutrophils/100 WBC (Bld) 63 % 36 - 65 % [facility] Nucleated RBC/100 WBC (Bld) [Ratio] 0 % 0.0 per 100 WBC [facility] Platelet, Fluorescence 159 Day[address] [facility] Platelets (Bld) [#/Vol] See Reflexed IPF Result [facility] Platelets reticulated/100 platelets Auto (Bld) 2.4 % 1.1 - 10.3 % [facility] RBC (Bld) [#/Vol] 4.67 10*6/uL 3.95 - 5.11 m/uL [facility] Segmented neutrophils/100 WBC (Bld) 5.17 % [facility] WBC other (Bld) [#/Vol] 8.2 [facility] CBC with Diffon 09-27-2024 Abs. Basophil 0.08 k/uL Normal 0.0-0.2 [facility] Comment on above: Performed By: #### M G, CDP, CP, LIP #### [facility] [address] [place], [place] [id number] Stock Puller: Ion Jasso MD Abs.Imm.Granulocyte 0.00 k/uL Normal 0.00-0.30 [facility] Comment on above: Performed By: #### M G, CDP, CP, LIP #### [facility] [address] [place], [place] [id number] Stock Puller: Ion Jasso MD Abs.Neutrophil (Seg) 5.17 k/uL Normal 1.50-8.10 [facility] Comment on above: Performed By: #### M G, CDP, CP, LIP #### [facility] [address] [place], [facility] Stock Puller: Ion Jasso MD Basophils/100 WBC (Bld) 1 % Normal 0-2 [facility] Comment on above: Performed By: #### M G, CDP, CP, LIP #### [address] [place], [place] [id number] Stock Puller: Ion Jasso MD Eosinophils (Bld) [#/Vol] 0.08 10*3/uL Normal 0.00-0.44 [facility] Comment on above: Performed By: #### M G, CDP, CP, LIP #### [facility] [address] [place], [place] [id number] Stock Puller: Ion Jasso MD Eosinophils/100 WBC (Bld) 1 % Normal 1-4 [facility] Comment on above: Performed By: #### M G, CDP, CP, LIP #### [facility] [address] [place], [place] [id number] Stock Puller: Ion Jasso MD Immature granulocytes/100 WBC (Bld) 0 % Normal 0 [facility] Comment on above: Performed By: #### M G, CDP, CP, LIP #### [facility] [address] [place], [place] [id number] Stock Puller: Ion Jasso MD Lymphocytes (Bld) [#/Vol] 2.13 10*3/uL Normal 1.10-3.70 [facility] Comment on above: Performed By: #### M G, CDP, CP, LIP #### [facility] [address] [place] [address] Stock Puller: Ion Jasso MD Lymphocytes/100 WBC (Bld) 26 % Normal 24-43 [facility] Comment on above: Performed By: #### M G, CDP, CP, LIP #### [address] [place], [place] [address] Stock Puller: Ion Jasso MD Monocytes (Bld) [#/Vol] 0.74 10*3/uL Normal 0.10-1.20 [facility] Comment on above: Performed By: #### M G, CDP, CP, LIP #### [facility] [address] [place] [address] Stock Puller: Ion Jasso MD Monocytes/100 WBC (Bld) 9 % Normal 3-12 [facility] Comment on above: Performed By: #### M G, CDP, CP, LIP #### [facility] [address] [place] [address] Stock Puller: Ion Jasso MD Morphology Syed (Bld) [Interp] Normal Normal [facility] Comment on above: Performed By: #### M G, CDP, CP, LIP #### [facility] [address] [place] [address] Stock Puller: Ion Jasso MD Neutrophil (Seg) 63 % Normal 36-65 [facility] Comment on above: Performed By: #### M G, CDP, CP, LIP #### [facility] [address] [place], [place] [address] Stock Puller: Ion Jasso MD Platelet, Fluoresc. 159 k/uL Normal 138-453 [facility] Comment on above: Performed By: #### M G, CDP, CP, LIP #### [facility] [address] [place], [place] [address] Stock Puller: Ion Jasso MD PLT, Immature Fract. 2.4 % Normal 1.1-10.3 [facility] Comment on above: Performed By: #### M G, CDP, CP, LIP #### [address] [place], [facility] Stock Puller: Ion Jasso MD Erythrocyte distribution width (RBC) [Ratio] 13.0 % Normal 11.8-14.4 [facility] Comment on above: Performed By: #### M G, CDP, CP, LIP #### [address] [place], [place] [address] Stock Puller: Ion Jasso MD Hematocrit (Bld) [Volume fraction] 45.2 % Normal 36.3-47.1 [facility] Comment on above: Performed By: #### M G, CDP, CP, LIP #### [address] [place], [place] [address] Stock Puller: Ion Jasso MD Hemoglobin (Bld) [Mass/Vol] 15.5 g/dL High 11.9-15.1 [facility] Comment on above: Performed By: #### M G, CDP, CP, LIP #### [address] [place], [facility] Stock Puller: Ion Jasso MD MCH (RBC) [Entitic mass] 33.2 pg Normal 25.2-33.5 [facility] Comment on above: Performed By: #### M G, CDP, CP, LIP #### [facility] [address] [place] [address] Stock Puller: Ion Jasso MD MCHC (RBC) [Mass/Vol] 34.3 g/dL Normal 28.4-34.8 [facility] Comment on above: Performed By: #### M G, CDP, CP, LIP #### [address] [place], [place] [address] Stock Puller: Ion Jasso MD MCV (RBC) [Entitic vol] 96.8 fL Normal 82.6-102.9 [facility] Comment on above: Performed By: #### M G, CDP, CP, LIP #### [address] [place] [id number] Stock Puller: Ion Jasso MD NRBC Automated 0.0 per 100 WBC Normal 0.0 [facility] Comment on above: Performed By: #### M G, CDP, CP, LIP #### [address] [place], [facility] Stock Puller: Ion Jasso MD Platelet Count See Reflexed IPF Result Normal 138-453 [facility] Comment on above: Performed By: #### M G, CDP, CP, LIP #### [address] [place], [place] [address] Stock Puller: Ion Jasso MD RBC (Bld) [#/Vol] 4.67 10*6/uL Normal 3.95-5.11 [facility] Comment on above: Performed By: #### M G, CDP, CP, LIP #### [address] [place], [place] [id number] Stock Puller: Ion Jasso MD WBC (Bld) [#/Vol] 8.2 10*3/uL Normal 3.5-11.3 [facility] Comment on above: Performed By: #### M G, CDP, CP, LIP #### [facility] [address] [place], [place] [id number] Stock Puller: Ion Jasso MD Comp Metabolic Profon 2024 Albumin [Mass/Vol] 4.6 g/dL Normal 3.5-5.2 [facility] Comment on above: Performed By: #### M G, CDP, CP, LIP #### [facility] [address] [place], [place] [phone] Stock Puller: Ion Jasso MD Albumin/Glob Ratio 1.6 Normal 1.0-2.5 [facility] Comment on above: Performed By: #### M G, CDP, CP, LIP #### [address] [place], [place] [phone] Stock Puller: Ion Jasso MD Alkaline Phos 145 U/L High 35-104 [facility] Comment on above: Performed By: #### M G, CDP, CP, LIP #### [address] [place], [place] [phone] Stock Puller: Ion Jasso MD ALT [Catalytic activity/Vol] 12 U/L Normal 10-35 [facility] Comment on above: Performed By: #### M G, CDP, CP, LIP #### [address] [place], [place] [id number] Stock Puller: Ion Jasso MD Anion gap [Moles/Vol] 15 mmol/L Normal 9-16 [facility] Comment on above: Performed By: #### M G, CDP, CP, LIP #### [facility] [address] [place], [place] [phone] Stock Puller: Ion Jasso MD AST [Catalytic activity/Vol] 24 U/L Normal 10-35 [facility] Comment on above: Performed By: #### M G, CDP, CP, LIP #### [facility] [address] [place], [place] [phone] Stock Puller: Ion Jasso MD Bilirubin [Mass/Vol] 0.3 mg/dL Normal 0.00-1.20 [facility] Comment on above: Performed By: #### M G, CDP, CP, LIP #### [facility] [address] [place], [place] [phone] Stock Puller: Ion Jasso MD BUN/CRE Ratio 10 Normal 9-20 [facility] Comment on above: Performed By: #### M G, CDP, CP, LIP #### [facility] [address] [place], [place] [phone] Stock Puller: Ion Jasso MD Calcium [Mass/Vol] 10.1 mg/dL Normal 8.6-10.4 [facility] Comment on above: Performed By: #### M G, CDP, CP, LIP #### [facility] [address] [place] [id number] Stock Puller: Ion Jasso MD Chloride [Moles/Vol] 103 mmol/L Normal 98-107 [facility] Comment on above: Performed By: #### M G, CDP, CP, LIP #### [facility] [address] [place] [address] Dr. [place], [place] [id number] Stock Puller: Ion Jasso MD CO2 [Moles/Vol] 21 mmol/L Normal 20-31 [facility] Comment on above: Performed By: #### M G, CDP, CP, LIP #### [facility] [address] [place], [place] [id number] Stock Puller: Ion Jasso MD Creatinine [Mass/Vol] 0.8 mg/dL Normal 0.50-0.90 [facility] Comment on above: Performed By: #### M G, CDP, CP, LIP #### [facility] [address] [place], [place] [id number] Stock Puller: Ion Jasso MD GFR/1.73 sq M.predicted among non-blacks MDRD (S/P/Bld) [Vol rate/Area] mL/min/{1.73_m2} Normal >60 [facility] Comment on above: Result Comment: These [...] affects renal tubular secretion. Performed By: #### M Jordana, WALTER, CP, LIP #### [facility] [address] [place] [address] [place] [address] Stock Puller: Ion Jasso MD Glucose [Mass/Vol] 91 mg/dL Normal 74-99 [facility] Comment on above: Performed By: #### M Jordana, WALTER, CP, LIP #### [facility] [address] [place] [address] Stock Puller: Ion Jasso MD Potassium [Moles/Vol] 4.2 mmol/L Normal 3.7-5.3 [facility] Comment on above: Result Comment: Spec imen hemolysis has exceeded the interference as defined by Joycelyn. Value may be falsely increased. Suggest recollection if clinically indicated. Performed By: #### M Jordana, WALTER, CP, LIP #### [facility] [address] [place] [address] [place] [address] Stock Puller: Ion Jasso MD Protein [Mass/Vol] 7.5 g/dL Normal 6.6-8.7 [facility] Comment on above: Performed By: #### M Jordana, CDP, CP, LIP #### [address] [place] [address] Stock Puller: Ion Jasso MD Sodium [Moles/Vol] 139 mmol/L Normal 136-145 [facility] Comment on above: Performed By: #### M G, CDP, CP, LIP #### [facility] [address] [place] [address] Stock Puller: Ion Jasso MD Urea nitrogen [Mass/Vol] 8 mg/dL Normal 6-20 [facility] Comment on above: Performed By: #### M G, CDP, CP, LIP #### [facility] [address] [place] [address] Stock Puller: Ion Jasso MD Comprehensive Metabolic Pane [facility] 09-27-2024 Albumin [Mass/Vol] 4.6 g/dL 3.5 - 5.2 g/dL [facility] Albumin/Globulin [Mass ratio] 1.6 {ratio} 1.0 - 2.5 [facility] ALP [Catalytic activity/Vol] 145 U/L High 35 - 104 U/L [facility] ALT [Catalytic activity/Vol] 12 U/L 10 - 35 U/L [facility] Anion gap [Moles/Vol] 15 mmol/L 9 - 16 mmol/L [facility] AST [Catalytic activity/Vol] 24 U/L 10 - 35 U/L [facility] Bilirubin [Mass/Vol] 0.3 mg/dL 0.00 - 1.20 mg/dL [facility] Calcium [Mass/Vol] 10.1 mg/dL 8.6 - 10. 4 mg/dL [facility] Chloride [Moles/Vol] 103 mmol/L 98 - 10 7 mmol/L [facility] CO2 [Moles/Vol] 21 mmol/L 20 - 31 mmol/L [facility] Creatinine [Mass/Vol] 0.8 mg/dL 0.50 - 0.90 mg/dL [facility] Est, Glom Filt Rate - PINF [facility] Comment on above: These results are [...] that affects renal tubular secretion. Glucose [Mass/Vol] 91 mg/dL 74 - 99 mg/dL [facility] Interpretation and review of laboratory results Abnormal [facility] Potassium [Moles/Vol] 4.2 mmol/L 3.7 - 5.3 mmol/L [facility] Comment on above: Specimen hemolysis h as exceeded the interference as defined by Joycelyn. Value may be falsely increased. Suggest recollection if clinically indicated. Protein [Mass/Vol] 7.5 g/dL 6.6 - 8.7 g/dL [facility] Sodium [Moles/Vol] 139 mmol/L 136 - 145 mmol/L [facility] Urea nitrogen [Mass/Vol] 8 mg/dL 6 - 20 mg/dL [facility] Urea nitrogen/Creatinine [Mass ratio] 10 mg/mg 9 - 20 [facility] Lactic Acidon 09-27-2024 Lactate (BldV) [Moles/Vol] 1.0 mmol/L 0.5 - 2.2 mmol/L [facility] Lactate [Moles/Vol] 1.0 mmol/L Normal 0.5-2.2 [facility] Comment on above: Performed By: #### L ACTIC #### [facility] [address] [place] [address] Stock Puller: Ion Jasso MD Lipaseon 09-27-2024 Lipase [Catalytic activity/Vol] 48 U/L 13 - 60 U/L [facility] Lipase [Catalytic activity/Vol] 48 U/L Normal 13-60 [facility] Comment on above: Performed By: #### M G, CDP, CP, LIP #### [facility] [address] [place] [address] Stock Puller: Ion Jasso MD No Panel Informationon 09-27 [facility] CBC with Auto Differentialon 09-20-2024 Basophils (Bld) [#/Vol] 0.06 10*3/uL [facility] Basophils/100 WBC (Bld) 1 % 0 - 2 % [facility] Eosinophils (Bld) [#/Vol] 0.17 10*3/uL [facility] Eosinophils/100 WBC (Bld) 2 % 1 - 4 % [facility] Erythrocyte distribution width (RBC) [Ratio] 13.1 % 11.8 - 14.4 % [facility] Hematocrit (Bld) [Volume fraction] 42 % 36.3 - 47.1 % [facility] Hemoglobin (Bld) [Mass/Vol] 14.4 g/dL 11.9 - 15.1 g/dL [facility] Immature granulocytes (Bld) [#/Vol] 0.03 10*3/uL [facility] Immature granulocytes/100 WBC (Bld) 0 % 0 [facility] Lymphocytes/100 WBC (Bld) 28 % 24 - 43 % [facility] Lymphocytes/100 WBC (Bld) 2.98 % [facility] MCH (RBC) [Entitic mass] 33.3 pg 25.2 - 33.5 pg [facility] MCHC (RBC) [Mass/Vol] 34.3 g/dL 28.4 - 34.8 g/dL [facility] MCV (RBC) [Entitic vol] 97.2 fL 82.6 - 102.9 fL [facility] Monocytes/100 WBC (Bld) 9 % 3 - 12 % [facility] Monocytes/100 WBC (Bld) 0.96 % [facility] Neutrophils/100 WBC (Bld) 60 % 36 - 65 % [facility] Nucleated RBC/100 WBC (Bld) [Ratio] 0 % 0.0 per 100 WBC [facility] Platelet mean volume (Bld) [Entitic vol] 9.7 fL 8.1 - 13.5 fL [facility] Platelets (Bld) [#/Vol] 258 10*3/uL [facility] RBC (Bld) [#/Vol] 4.32 10*6/uL 3.95 - 5.11 m/uL [facility] Segmented neutrophils/100 WBC (Bld) 6.53 % [facility] WBC other (Bld) [#/Vol] 10.7 [facility] CBC with Diffon 09-20-2024 Abs. Basophil 0.06 k/uL Normal 0.00-0.20 [facility] Comment on above: Performed By: #### M G, CDP, CP, LIP #### [facility] [address] [place] [address] Dr. [place], [place] [address] Stock Puller: Ion Jasso MD Abs.Imm.Granulocyte 0.03 k/uL Normal 0.00-0.30 [facility] Comment on above: Performed By: #### M G, CDP, CP, LIP #### [address] [place] [address] Stock Puller: Ion Jasso MD Abs.Neutrophil (Seg) 6.53 k/uL Normal 1.50-8.10 [facility] Comment on above: Performed By: #### M G, CDP, CP, LIP #### [address] [place], [facility] Stock Puller: Ion Jasso MD Basophils/100 WBC (Bld) 1 % Normal 0-2 [facility] Comment on above: Performed By: #### M G, CDP, CP, LIP #### [address] [place], [place] [address] Stock Puller: Ion Jasso MD Eosinophils (Bld) [#/Vol] 0.17 10*3/uL Normal 0.00-0.44 [facility] Comment on above: Performed By: #### M G, CDP, CP, LIP #### [address] [place], [place] [id number] Stock Puller: Ion Jasso MD Eosinophils/100 WBC (Bld) 2 % Normal 1-4 [facility] Comment on above: Performed By: #### M G, CDP, CP, LIP #### [facility] [address] [place], [facility] Stock Puller: Ion Jasso MD Erythrocyte distribution width (RBC) [Ratio] 13.1 % Normal 11.8-14.4 [facility] Comment on above: Performed By: #### M G, CDP, CP, LIP #### [facility] [address] [place], [facility] Stock Puller: Ion Jasso MD Hematocrit (Bld) [Volume fraction] 42.0 % Normal 36.3-47.1 [facility] Comment on above: Performed By: #### M G, CDP, CP, LIP #### [address] [place], [place] [address] Stock Puller: Ion Jasso MD Hemoglobin (Bld) [Mass/Vol] 14.4 g/dL Normal 11.9-15.1 [facility] Comment on above: Performed By: #### M G, CDP, CP, LIP #### [address] [place], [facility] Stock Puller: Ion Jasso MD Immature granulocytes/100 WBC (Bld) 0 % Normal 0 [facility] Comment on above: Performed By: #### M G, CDP, CP, LIP #### [address] [place], [facility]83 Stock Puller: Ion Jasso MD Lymphocytes (Bld) [#/Vol] 2.98 10*3/uL Normal 1.10-3.70 [facility] Comment on above: Performed By: #### M G, CDP, CP, LIP #### [facility] [address] [place] [address] Stock Puller: Ion Jasso MD Lymphocytes/100 WBC (Bld) 28 % Normal 24-43 [facility] Comment on above: Performed By: #### M G, CDP, CP, LIP #### [facility] [address] [place], [facility]83 Stock Puller: Ion Jasso MD MCH (RBC) [Entitic mass] 33.3 pg Normal 25.2-33.5 [facility] Comment on above: Performed By: #### M G, CDP, CP, LIP #### [address] [place], [place] [address] Stock Puller: Ion Jasso MD MCHC (RBC) [Mass/Vol] 34.3 g/dL Normal 28.4-34.8 [facility] Comment on above: Performed By: #### M G, CDP, CP, LIP #### [address] [place], [place] [address] Stock Puller: Ion Jasso MD MCV (RBC) [Entitic vol] 97.2 fL Normal 82.6-102.9 [facility] Comment on above: Performed By: #### M G, CDP, CP, LIP #### [address] [place], [place] [address] Stock Puller: Ion Jasso MD Monocytes (Bld) [#/Vol] 0.96 10*3/uL Normal 0.10-1.20 [facility] Comment on above: Performed By: #### M G, CDP, CP, LIP #### [address] [place], [place] [address] Stock Puller: Ion Jasso MD Monocytes/100 WBC (Bld) 9 % Normal 3-12 [facility] Comment on above: Performed By: #### M G, CDP, CP, LIP #### [address] [place], [facility] ( Stock Puller: Ion Jasso MD Neutrophil (Seg) 60 % Normal 36-65 [facility] Comment on above: Performed By: #### M G, CDP, CP, LIP #### [address] [place], [place] [phone] Stock Puller: Ion Jasso MD NRBC Automated 0.0 per 100 WBC Normal 0.0 [facility] Comment on above: Performed By: #### M G, CDP, CP, LIP #### [address] [place], [place] [phone] Stock Puller: Ion Jasso MD Platelet mean volume (Bld) [Entitic vol] 9.7 fL Normal 8.1-13.5 [facility] Comment on above: Performed By: #### M G, CDP, CP, LIP #### [address] [place], [facility]83 Stock Puller: Ion Jasso MD Platelets (Bld) [#/Vol] 258 10*3/uL Normal 138-453 [facility] Comment on above: Performed By: #### M G, CDP, CP, LIP #### [address] [place], [place] [id number] Stock Puller: Ion Jasso MD RBC (Bld) [#/Vol] 4.32 10*6/uL Normal 3.95-5.11 [facility] Comment on above: Performed By: #### M G, CDP, CP, LIP #### [address] [place], [place] [id number] Stock Puller: Ion Jasso MD WBC (Bld) [#/Vol] 10.7 10*3/uL Normal 3.5-11.3 [facility] Comment on above: Performed By: #### M G, CDP, CP, LIP #### [address] [place] [address] Stock Puller: Ion Jasso MD Comp Metabolic Profon 2024 Albumin [Mass/Vol] 4.4 g/dL Normal 3.5-5.2 [facility] Comment on above: Performed By: #### M G, CDP, CP, LIP #### [facility] [address] [place], [place] [id number] Stock Puller: Ion Jasso MD Albumin/Glob Ratio 1.8 Normal 1.0-2.5 [facility] Comment on above: Performed By: #### M G, CDP, CP, LIP #### [facility] [address] [place], [place] [id number] Stock Puller: Ion Jasso MD Alkaline Phos 127 U/L High 35-104 [facility] Comment on above: Performed By: #### M G, CDP, CP, LIP #### [address] [place], [place] [id number] Stock Puller: Ion Jasso MD ALT [Catalytic activity/Vol] 10 U/L Normal 10-35 [facility] Comment on above: Performed By: #### M G, CDP, CP, LIP #### [address] [place], [place] [id number] Stock Puller: Ion Jasso MD Anion gap [Moles/Vol] 12 mmol/L Normal 9-16 [facility] Comment on above: Performed By: #### M G, CDP, CP, LIP #### [address] [place], [place] [id number] Stock Puller: Ion Jasso MD AST [Catalytic activity/Vol] 19 U/L Normal 10-35 [facility] Comment on above: Performed By: #### M G, CDP, CP, LIP #### [address] [place], [place] [phone] Stock Puller: Ion Jasso MD Bilirubin [Mass/Vol] mg/dL Normal 0.00-1.20 [facility] Comment on above: Performed By: #### M G, CDP, CP, LIP #### [address] [place], [place] [phone] Stock Puller: Ion Jasso MD BUN/CRE Ratio 9 Normal 9-20 [facility] Comment on above: Performed By: #### M G, CDP, CP, LIP #### [facility] [address] [place] [address] Stock Puller: Ion Jasso MD Calcium [Mass/Vol] 9.6 mg/dL Normal 8.6-10.4 [facility] Comment on above: Performed By: #### M G, CDP, CP, LIP #### [facility] [address] [place] [address] Stock Puller: Ion Jasso MD Chloride [Moles/Vol] 105 mmol/L Normal 98-107 [facility] Comment on above: Performed By: #### M Jordana, CDP, CP, LIP #### [facility] [address] [place] [address] Stock Puller: Ion Jasso MD CO2 [Moles/Vol] 23 mmol/L Normal 20-31 [facility] Comment on above: Performed By: #### M Jordana, CDP, CP, LIP #### [facility] [address] [place] [address] Stock Puller: Ion Jasso MD Creatinine [Mass/Vol] 0.9 mg/dL Normal 0.50-0.90 [facility] Comment on above: Performed By: #### M G, CDP, CP, LIP #### [facility] [address] [place] [address] Stock Puller: Ion Jasso MD GFR/1.73 sq M.predicted among non-blacks MDRD (S/P/Bld) [Vol rate/Area] 77 mL/min/{1.73_m2} Normal >60 [facility] Comment on above: Result Comment: These [...] affects renal tubular secretion. Performed By: #### M G, CDP, CP, LIP #### [facility] [address] [place], [place] [phone] Stock Puller: Ion Jasso MD Glucose [Mass/Vol] 97 mg/dL Normal 74-99 [facility] Comment on above: Performed By: #### M G, CDP, CP, LIP #### [facility] [address] [place], [place] [phone] Stock Puller: Ion Jasso MD Potassium [Moles/Vol] 4.4 mmol/L Normal 3.7-5.3 [facility] Comment on above: Performed By: #### M G, CDP, CP, LIP #### [facility] [address] [place] [address] Stock Puller: Ion Jasso MD Protein [Mass/Vol] 6.8 g/dL Normal 6.6-8.7 [facility] Comment on above: Performed By: #### M G, CDP, CP, LIP #### [address] [place], [place] [phone] Stock Puller: Ion Jasso MD Sodium [Moles/Vol] 140 mmol/L Normal 136-145 [facility] Comment on above: Performed By: #### M G, CDP, CP, LIP #### [facility] [address] [place] [address] Stock Puller: Ion Jasso MD Urea nitrogen [Mass/Vol] 8 mg/dL Normal 6-20 [facility] Comment on above: Performed By: #### M G, CDP, CP, LIP #### [facility] [address] [place], [place] [phone] Stock Puller: Ion Jasso MD [facility] Metabolic [facility] 09-20-2024 Albumin [Mass/Vol] 4.4 g/dL 3.5 - 5.2 g/dL [facility] Albumin/Globulin [Mass ratio] 1.8 {ratio} 1.0 - 2.5 [facility] ALP [Catalytic activity/Vol] 127 U/L High 35 - 104 U/L [facility] ALT [Catalytic activity/Vol] 10 U/L 10 - 35 U/L [facility] Anion gap [Moles/Vol] 12 mmol/L 9 - 16 mmol/L [facility] AST [Catalytic activity/Vol] 19 U/L 10 - 35 U/L [facility] Bilirubin [Mass/Vol] mg/dL 0.00 - 1.20 mg/dL [facility] Calcium [Mass/Vol] 9.6 mg/dL 8.6 - 10. 4 mg/dL [facility] Chloride [Moles/Vol] 105 mmol/L 98 - 10 7 mmol/L [facility] CO2 [Moles/Vol] 23 mmol/L 20 - 31 mmol/L [facility] Creatinine [Mass/Vol] 0.9 mg/dL 0.50 - 0.90 mg/dL [facility] Est, Glom Filt Rate 77 - PINF [facility] Comment on above: These results are [...] that affects renal tubular secretion. Glucose [Mass/Vol] 97 mg/dL 74 - 99 mg/dL [facility] Potassium [Moles/Vol] 4.4 mmol/L 3.7 - 5.3 mmol/L [facility] Protein [Mass/Vol] 6.8 g/dL 6.6 - 8.7 g/dL [facility] Sodium [Moles/Vol] 140 mmol/L 136 - 145 mmol/L [facility] Urea nitrogen [Mass/Vol] 8 mg/dL 6 - 20 mg/dL [facility] Urea nitrogen/Creatinine [Mass ratio] 9 mg/mg 9 - 20 [facility] Lactic Acidon 09-20-2024 Lactate (BldV) [Moles/Vol] 1.2 mmol/L 0.5 - 2.2 mmol/L [facility] Lactate [Moles/Vol] 1.2 mmol/L Normal 0.5-2.2 [facility] Comment on above: Performed By: #### Dayday Silveira, WALTER, CP, LIP #### [facility] [address] [place] [address] Stock Puller: Ion Jasso MD Lipaseon 09-20-2024 Lipase [Catalytic activity/Vol] 89 U/L High 13 - 60 U/L [facility] Lipase [Catalytic activity/Vol] 89 U/L High 13-60 [facility] Comment on above: Performed By: #### WALTER Arreaga, CP, LIP #### [facility] [address] [place] [address] Stock Puller: Ion Jasso MD No Panel Informationon 09-20 Interpretation and review of laboratory results Abnormal [facility] Urinalysis w/ Microon 2024 Bacteria 2+ Abnormal NONE [facility] Comment on above: Performed By: #### WALTER Arreaga, CP, LIP #### [facility] [address] [place] [address] Stock Puller: Ion Jasso MD Bilirubin, SemiQt,Ur Negative Normal NEG [facility] Comment on above: Performed By: #### WALTER Arreaga, CP, LIP #### [facility] [address] [place] [address] Stock Puller: Ion Jasso MD Blood, Urine Negative Normal NEG [facility] Comment on above: Performed By: #### Dayday Silveira, WALTER, CP, LIP #### [facility] [address] [place], [place] [phone] Stock Puller: Ion Jasso MD Clarity (U) Clear Normal CLEAR [facility] Comment on above: Performed By: #### M G, CDP, CP, LIP #### [facility] [address] [place], [place] [phone] Stock Puller: Ion Jasso MD Color (U) Yellow Normal YEL [facility] Comment on above: Performed By: #### M G, CDP, CP, LIP #### [facility] [address] [place], [place] [phone] Stock Puller: Ion Jasso MD Epithelial cells LM Ql (Urine sed) 2 TO 5 Normal 0-25 [facility] Comment on above: Performed By: #### M G, CDP, CP, LIP #### [facility] [address] [place] [address] Dr. [place], [place] [phone] Stock Puller: Ion Jasso MD Glucose Ql (U) Negative Normal NEG [facility] in [facility] Comment on above: Performed By: #### M G, CDP, CP, LIP #### [address] [place] [address] Stock Puller: Ion Jasos MD Ketones Ql (U) Negative Normal NEG [facility] Comment on above: Performed By: #### M G, CDP, CP, LIP #### [facility] [address] [place] [address] [place] [address] Stock Puller: Ion Jasso MD Leukocyte esterase Test strip Ql (U) Negative Normal NEG [facility] Comment on above: Performed By: #### M G, CDP, CP, LIP #### [facility] [address] [place], [place] [phone] Stock Puller: Ion Jasso MD Nitrite,Ur Negative Normal NEG [facility] Comment on above: Performed By: #### M G, CDP, CP, LIP #### [facility] [address] [place] [address] Stock Puller: Ion Jasso MD PH,Ur 6.0 Normal 5.0-9.0 [facility] Comment on above: Performed By: #### M G, CDP, CP, LIP #### [address] [place], [place] [phone] Stock Puller: Ion Jasso MD Protein Ql (U) Negative Normal NEG [facility] Comment on above: Performed By: #### M G, CDP, CP, LIP #### [address] [place], [place] [phone] Stock Puller: Ion Jasso MD Spec. [place],Ur >1.030 High 1.010-1.02 0 [facility] Comment on above: Performed By: #### M G, CDP, CP, LIP #### [facility] [address] [place] [address] [place] [address] Stock Puller: Ion Jasso MD Urine RBC's None Normal 0-2 [facility] Comment on above: Performed By: #### M G, CDP, CP, LIP #### [address] [place] [address] Stock Puller: Ion Jasso MD Urine WBC's None Normal 0-5 [facility] Comment on above: Performed By: #### M G, CDP, CP, LIP #### [facility] [address] [place] [address] [place] [address] Stock Puller: Ion Jasso MD Urobilinogen,Ur Normal Normal 0.0-1.0 [facility] Comment on above: Performed By: #### M G, CDP, CP, LIP #### [address] [place], [place] [phone] Stock Puller: Ion Jasso MD Urinalysis with Microscopico n 09-20-2024 Bacteria LM Ql (Urine sed) 2+ Abnormal None [facility] Bilirubin Ql (U) Negative NEGATIVE [facility] Clarity (U) Clear Clear [facility] Color (U) Yellow Yellow [facility] Epithelial cells LM.HPF (Urine sed) [#/Area] 2 TO 5 [facility] Glucose Test strip (U) [Mass/Vol] Negative NEGATIVE mg/dL [facility] Hemoglobin Auto test strip Ql (U) Negative NEGATIVE [facility] Interpretation and review of laboratory results Abnormal [facility] Ketones (U) [Mass/Vol] Negative NEGAT MATTHIAS mg/dL [facility] Leukocyte esterase Test strip Ql (U) Negative NEGATIVE [facility] Nitrite Ql (U) Negative NEGATIVE [facility] pH (U) 6 [pH] 5.0 - 9.0 [facility] Protein (U) [Mass/Vol] Negative NEGAT MATTHIAS mg/dL [facility] RBC LM.HPF (Urine sed) [#/Area] None [facility] Specific gravity (U) [Rel density] High 1.010 - 1.020 [facility] Urobilinogen Qn (U) Normal 0.0 - 1. 0 EU/dL [facility] WBC LM.HPF (Urine sed) [#/Area] None [facility] CT ABDOMEN AND PELVIS W CONT on 09-19-2024 CT ABDOMEN AND PELVIS W CONT CT ABDOMEN AND PELVIS W CONT History: Abdominal pain Technique: Contiguous axial images through the abdomen pelvis were obtained following the administration of intravenous contrast material. Automated exposure control was utilized. Comparison: 05/31/2024 Findings: The previous described dilatation of the pancreatic and common bile duct is again seen and is unchanged. No other pancreatic abnormalities are identified. No evidence of acute pancreatitis is seen. There is no evidence of any hepatic, splenic, adrenal, or renal abnormality is. The gallbladder has been surgically removed. No abdominal or retroperitoneal mass or adenopathy are seen. No pelvic masses, adenopathy, or fluid loculated are identified. Limited images of the lung bases are unremarkable. Impression: Normal CT abdomen and pelvis. All CT scans at this facility use dose modulation, iterative reconstruction, and/or weight based dosing when appropriate to reduce radiation dose to as low as reasonably achievable Finalized by Ion Dasilva MD on 09/19/2024 1:15 AM Normal [facility] POCT NURSING URINE MACROSCOP IC UAon 09-19-2024 BILIRUBIN JERE Negative Normal Negative [facility] Comment on above: Performed By: #### C BCA, BMP, 90008-8, LIVR, 05749-0, 72033-2, 5643-2, 3040-3 #### [facility] ([id number]) [address] [place] [address] 13590 BLOOD/HGB JERE Negative Normal Negative [facility] Comment on above: Performed By: #### C BCA, BMP, 09411-4, LIVR, 09104-6, 59157-7, 5643-2, 3040-3 #### [facility] ([id number]) [address] [place] [address] 45222 GLUCOSE JERE Negative Normal Negative [facility] Comment on above: Performed By: #### C BCA, BMP, 58118-9, LIVR, 45835-4, 10421-8, 5643-2, 3040-3 #### [facility] ([id number]) [address] [place] [address] 96116 KETONES JERE Negative Normal Negative [facility] Comment on above: Performed By: #### C BCA, BMP, 31844-4, LIVR, 32514-0, 14182-4, 5643-2, 3040-3 #### [facility] ([id number]) [address] [place] [address] 31343 LEUKOCYTE ESTERASE JERE Negative Normal Negative Pr [facility] Comment on above: Performed By: #### C BCA, BMP, 52378-5, LIVR, 46841-1, 25225-7, 5643-2, 3040-3 #### [facility] ([id number]) [address] [place] [address] 34289 NITRITE JERE Negative Normal Negative [facility] Comment on above: Performed By: #### C BCA, BMP, 38925-3, LIVR, 91774-9, 00062-2, 5643-2, 3040-3 #### [facility] ([id number]) [address] [place] [address] 75587 PH JERE 5.5 Normal 5.0, 6.0, 6.5, 7.0, 7.5, 8.0, 8.5, 5.5 [facility] Comment on above: Performed By: #### C BCA, BMP, 64834-9, LIVR, 57078-7, 02844-4, 5643-2, 3040-3 #### [facility] ([id number]) [address] [place] [address] 50299 PROTEIN JERE Negative Normal Negative [facility] Comment on above: Performed By: #### C BCA, BMP, 65379-1, LIVR, 27229-0, 22748-3, 5643-2, 3040-3 #### [facility] ([id number]) [address] [place] [address] 86370 SPECIFIC GRAVITY JERE 1.025 Normal 1.010, 1.015, 1.020, 1.025 [facility] Comment on above: Performed By: #### C BCA, BMP, 20114-7, LIVR, 46127-5, 91762-9, 5643-2, 3040-3 #### [facility] ([id number]) [address] [place] [address] 40953 UROBILINOGEN JERE 0.2 E.U./dL Normal [facility] Comment on above: Performed By: #### C BCA, BMP, 31180-8, LIVR, 38288-2, 53965-4, 5643-2, 3040-3 #### [facility] ([id number]) [address] [place] [address] 37431 APTTon 09-18-2024 aPTT Coag (Bld) [Time] 26 s Normal 26-37 [facility] Comment on above: Performed By: #### C BCA, BMP, 56316-4, LIVR, 81269-9, 67128-4, 5643-2, 3040-3 #### [facility] ([id number]) [address] [place] [address] 94743 BASIC METABOLIC PANELon 09-06 Anion gap [Moles/Vol] 6 mmol/L Normal 5-15 [facility] Comment on above: Performed By: #### C BCA, BMP, 68284-7, LIVR, 39071-0, 54508-0, 5643-2, 3040-3 #### [facility] ([id number]) [address] [place] [address] 22756 Calcium [Mass/Vol] 9.8 mg/dL Normal 8.5-10.5 [facility] Comment on above: Performed By: #### C BCA, BMP, 27492-3, LIVR, 79441-4, 95103-6, 5643-2, 3040-3 #### [facility] ([id number]) [address] [place] [address] 91578 Chloride [Moles/Vol] 106 mmol/L Normal 98-109 [facility] Comment on above: Performed By: #### C BCA, BMP, 18044-4, LIVR, 38138-8, 95899-0, 5643-2, 3040-3 #### [facility] ([id number]) [address] [place] [address] 28397 CO2 [Moles/Vol] 27 mmol/L Normal 22-32 [facility] Comment on above: Performed By: #### C BCA, BMP, 24167-5, LIVR, 66336-4, 63186-9, 5643-2, 3040-3 #### [facility] ([id number]) [address] [place] [address] 99196 Creatinine [Mass/Vol] 0.91 mg/dL Normal 0.40-1.00 [facility] Comment on above: Result Comment: METH OD TRACEABLE TO IDMS STANDARD Performed By: #### C BCA, BMP, 60704-1, LIVR, 55893-4, 86656-5, 5643-2, 3040-3 #### [facility] ([id number]) [address] [place] [address] 58115 GFR/1.73 sq M.predicted among non-blacks MDRD (S/P/Bld) [Vol rate/Area] 75 mL/min/{1.73_m2} Normal >=60 [facility] Comment on above: Result Comment: eGFR not reported due to non-numeric value for Creatinine. Reported eGFR is based on the CKD-EPI 2020 equation that does not use a race coefficient. Performed By: #### C BCA, BMP, 34491-8, LIVR, 67289-8, 22312-7, 5643-2, 3040-3 #### [facility] ([id number]) [address] [place] [address] 88484 Glucose [Mass/Vol] 76 mg/dL Normal 65-99 [facility] Comment on above: Performed By: #### C BCA, BMP, 18061-5, LIVR, 24228-1, 56952-3, 5643-2, 3040-3 #### [facility] ([id number]) [address] [place] [address] 90797 Potassium [Moles/Vol] 3.5 mmol/L Normal 3.5-5.0 [facility] Comment on above: Performed By: #### C BCA, BMP, 14008-1, LIVR, 20383-5, 32302-7, 5643-2, 3040-3 #### [facility] ([id number]) [address] [place] [address] 02489 Sodium [Moles/Vol] 139 mmol/L Normal 134-146 [facility] Comment on above: Performed By: #### C BCA, BMP, 91077-2, LIVR, 05340-2, 45097-8, 5643-2, 3040-3 #### [facility] ([id number]) [address] [place] [address] 28231 Urea nitrogen [Mass/Vol] 10 mg/dL Normal 5-23 [facility] Comment on above: Performed By: #### C BCA, BMP, 80225-6, LIVR, 37518-6, 76153-6, 5643-2, 3040-3 #### [facility] ([id number]) [address] [place] [address] 98119 CBC WITH AUTO DIFFERENTIALon 09-18-2024 BASOPHILS ABSOLUTE COUNT (10*3/UL) BY AUTOMATED COUNT 0.1 10*3/uL Normal 0.0-0.2 [facility] Comment on above: Performed By: #### C BCA, BMP, 67637-9, LIVR, 23713-1, 38016-5, 5643-2, 3040-3 #### [facility] ([id number]) [address] [place] [address] 22208 BASOPHILS RELATIVE PERCENT BY AUTOMATED COUNT 0.7 % Normal [facility] Comment on above: Performed By: #### C BCA, BMP, 93362-1, LIVR, 74214-9, 11638-1, 5643-2, 3040-3 #### [facility] ([id number]) [address] [place] [address] 83764 CELLAVISION DIFFERENTIAL TYPE AUTOMATED DIFFERENTIAL Normal [facility] Comment on above: Performed By: #### C BCA, BMP, 94775-6, LIVR, 21603-5, 55211-3, 5643-2, 3040-3 #### [facility] ([id number]) [address] [place], [place] [address] Eosinophils (Bld) [#/Vol] 0.2 10*3/uL Normal 0.0-0.4 [facility] Comment on above: Performed By: #### C BCA, BMP, 85331-6, LIVR, 49316-8, 28419-1, 5643-2, 3040-3 #### [facility] ([id number]) [address] [place] [address] 42528 EOSINOPHILS RELATIVE PERCENT BY AUTOMATED COUNT 1.5 % Normal [facility] Comment on above: Performed By: #### C BCA, BMP, 76435-1, LIVR, 02888-3, 78287-1, 5643-2, 3040-3 #### [facility] ([id number]) [address] [place] [address] 62657 Erythrocyte distribution width (RBC) [Ratio] 13.7 % Normal 11.5-15 [facility] Comment on above: Performed By: #### C BCA, BMP, 98070-5, LIVR, 93588-7, 43230-9, 5643-2, 3040-3 #### [facility] ([id number]) [address] [place] [address] 19662 Hematocrit (Bld) [Volume fraction] 42.3 % Normal 35-47 [facility] Comment on above: Performed By: #### C BCA, BMP, 14065-7, LIVR, 31757-3, 92258-4, 5643-2, 3040-3 #### [facility] ([id number]) [address] [place] [address] 45200 Hemoglobin (Bld) [Mass/Vol] 14.8 g/dL Normal 11.7-15.5 [facility] Comment on above: Performed By: #### C BCA, BMP, 26046-2, LIVR, 71587-6, 58898-7, 5643-2, 3040-3 #### [facility] ([id number]) [address] [place] [address] 43479 LYMPHOCYTES ABSOLUTE COUNT (10*3/UL) BY AUTOMATED COUNT 2.8 10*3/uL Normal 1.0-3.5 [facility] Comment on above: Performed By: #### C BCA, BMP, 40085-1, LIVR, 01143-4, 47102-8, 5643-2, 3040-3 #### [facility] ([id number]) [address] [place] [address] 48385 LYMPHOCYTES RELATIVE PERCENT BY AUTOMATED COUNT 26.7 % Normal [facility] Comment on above: Performed By: #### C BCA, BMP, 33890-4, LIVR, 69907-4, 78279-8, 5643-2, 3040-3 #### [facility] ([id number]) [address] [place] [address] 28279 MCH (RBC) [Entitic mass] 33.4 pg Normal 27-34 [facility] Comment on above: Performed By: #### C BCA, BMP, 62926-4, LIVR, 28890-1, 33475-3, 5643-2, 3040-3 #### [facility] ([id number]) [address] [place] [address] 75118 MCHC (RBC) [Mass/Vol] 34.9 g/dL Normal 32-36 [facility] Comment on above: Performed By: #### C BCA, BMP, 31564-2, LIVR, 11341-5, 67221-6, 5643-2, 3040-3 #### [facility] ([id number]) [address] [place] [address] 74291 MCV (RBC) [Entitic vol] 96 fL Normal 80-100 [facility] Comment on above: Performed By: #### C BCA, BMP, 98759-7, LIVR, 72907-5, 86309-3, 5643-2, 3040-3 #### [facility] ([id number]) [address] [place] [address] 14675 MONOCYTES ABSOLUTE COUNT (10*3/UL) BY AUTOMATED COUNT 0.9 10*3/uL Normal 0.0-0.9 [facility] Comment on above: Performed By: #### C BCA, BMP, 92039-2, LIVR, 61994-4, 34285-6, 5643-2, 3040-3 #### [facility] ([id number]) [address] [place] [address] 29720 MONOCYTES RELATIVE PERCENT BY AUTOMATED COUNT 8.8 % Normal [facility] Comment on above: Performed By: #### C BCA, BMP, 89431-0, LIVR, 73616-3, 93227-8, 5643-2, 3040-3 #### [facility] ([id number]) [address] [place] [address] 57176 NEUTROPHILS ABSOLUTE COUNT BY AUTOMATED COUNT 6.6 10*3/uL Normal 1.5-6.6 [facility] Comment on above: Performed By: #### C BCA, BMP, 57862-0, LIVR, 39432-4, 73451-9, 5643-2, 3040-3 #### [facility] ([id number]) [address] [place] [address] 13609 NEUTROPHILS RELATIVE PERCENT BY AUTOMATED COUNT 62.3 % Normal [facility] Comment on above: Performed By: #### C BCA, BMP, 80106-8, LIVR, 42445-2, 08284-5, 5643-2, 3040-3 #### [facility] ([id number]) [address] [place] [address] 00998 Platelet mean volume (Bld) [Entitic vol] 8.3 fL Normal 7-12 [facility] Comment on above: Performed By: #### C BCA, BMP, 53806-9, LIVR, 71198-0, 10625-9, 5643-2, 3040-3 #### [facility] ([id number]) [address] [place] [address] 17775 Platelets (Bld) [#/Vol] 283 10*3/uL Normal 150-450 [facility] Comment on above: Performed By: #### C BCA, BMP, 33580-4, LIVR, 54785-1, 93381-8, 5643-2, 3040-3 #### [facility] ([id number]) [address] [place] [address] 79473 RBC COUNT 4.43 X10E12/L Normal 3.8-5.2 [facility] Comment on above: Performed By: #### C BCA, BMP, 29726-4, LIVR, 80557-3, 73004-4, 5643-2, 3040-3 #### [facility] ([id number]) [address] [place] [address] 45911 WBC (Bld) [#/Vol] 10.5 10*3/uL Normal 4-11 [facility] Comment on above: Performed By: #### C BCA, BMP, 93723-8, LIVR, 46679-7, 56930-2, 5643-2, 3040-3 #### [facility] ([id number]) [address] [place] [address] 77361 ETHANOLon 09-18-2024 Ethanol [Mass/Vol] mg/dL Normal <=0.080 [facility] Comment on above: Result Comment: This report is intended for use in clinical monitoring or management of patients. Performed By: #### C BCA, BMP, 43393-9, LIVR, 57926-5, 83850-7, 5643-2, 3040-3 #### [facility] ([id number]) [address] [place] [address] 62559 LIPASEon 09-18-2024 Lipase [Catalytic activity/Vol] 187 U/L High 17-40 [facility] Comment on above: Performed By: #### C BCA, BMP, 90235-4, LIVR, 12828-3, 42135-7, 5643-2, 3040-3 #### [facility] ([id number]) [address] [place] [address] 03318 LIVER PANELon 09-18-2024 Albumin [Mass/Vol] 4.3 g/dL Normal 3.2-5.3 [facility] Comment on above: Performed By: #### C BCA, BMP, 44300-1, LIVR, 50208-9, 18311-6, 5643-2, 3040-3 #### [facility] ([id number]) [address] [place] [address] 43347 ALP [Catalytic activity/Vol] 127 U/L Normal 39-130 [facility] Comment on above: Performed By: #### C BCA, BMP, 46260-2, LIVR, 53204-5, 88889-5, 5643-2, 3040-3 #### [facility] ([id number]) [address] [place] [address] 82055 ALT [Catalytic activity/Vol] 13 U/L Normal <=31 [facility] Comment on above: Performed By: #### C BCA, BMP, 78336-4, LIVR, 57966-9, 09746-5, 5643-2, 3040-3 #### [facility] ([id number]) [address] [place] [address] 51731 AST [Catalytic activity/Vol] 20 U/L Normal <=41 [facility] Comment on above: Performed By: #### C BCA, BMP, 51428-0, LIVR, 50333-5, 44231-0, 5643-2, 3040-3 #### [facility] ([id number]) [address] [place] [address] 20376 Bilirubin [Mass/Vol] 0.3 mg/dL Normal 0.3-1.2 [facility] Comment on above: Performed By: #### C BCA, BMP, 37261-5, LIVR, 28566-7, 90569-1, 5643-2, 3040-3 #### [facility] ([id number]) [address] [place] [address] 14063 Bilirubin.indirect [Mass/Vol] mg/dL Normal <=0.4 [facility] Comment on above: Performed By: #### C BCA, BMP, 70846-4, LIVR, 44855-7, 24170-0, 5643-2, 3040-3 #### [facility] ([id number]) [address] [place] [address] 85375 Protein [Mass/Vol] 7.4 g/dL Normal 6.0-8.0 [facility] Comment on above: Performed By: #### C BCA, BMP, 51749-6, LIVR, 03724-2, 95249-8, 5643-2, 3040-3 #### [facility] ([id number]) [address] [place] [address] 91642 MAGNESIUMon 09-18-2024 Magnesium [Mass/Vol] 2.4 mg/dL Normal 1.8-2.6 [facility] Comment on above: Performed By: #### C BCA, BMP, 67056-0, LIVR, 54994-7, 40002-7, 5643-2, 3040-3 #### [facility] ([id number]) [address] [place] [address] 58876 PROTIME AND INRon 09-18-2024 INR 1.0 Normal 0.9-1.2 [facility] Comment on above: Performed By: #### C BCA, BMP, 84249-5, LIVR, 92659-4, 62712-9, 5643-2, 3040-3 #### [facility] ([id number]) [address] [place] [address] 73385 PT Coag (PPP) [Time] 10.9 s Normal 9.8-13.2 [facility] Comment on above: Performed By: #### C BCA, BMP, 47673-7, LIVR, 99809-3, 20680-1, 5643-2, 3040-3 #### [facility] ([id number]) [address] [place] [address] 21053 TROP I, HIGH SENSITIVITY 1 H OURon 09-18-2024 TROPONIN I, HIGH SENSITIVITY 2 ng/L Normal <16 [facility] Comment on above: Performed By: #### C BCA, BMP, 12247-5, LIVR, 49341-1, 51337-6, 5643-2, 3040-3 #### [facility] ([id number]) [address] [place] [address] 40232 TROPONIN I, HIGH SENSITIVITY 0 HOURon 09-18-2024 TROPONIN I, HIGH SENSITIVITY 3 ng/L Normal <16 [facility] Comment on above: Performed By: #### C BCA, BMP, 45925-4, LIVR, 40607-7, 33908-0, 5643-2, 3040-3 #### [facility] ([id number]) [address] [place] [address] 72524 CBC WITH AUTO DIFFERENTIALon 09-05-2024 BASOPHILS ABSOLUTE COUNT (10*3/UL) BY AUTOMATED COUNT 0.1 10*3/uL Normal 0.0-0.2 [facility] Comment on above: Performed By: #### C BCA, BMP, 90364-1, LIVR, 01058-5, 20166-0, 5643-2, 3040-3 #### [facility] ([id number]) [address] [place] [address] 63298 BASOPHILS RELATIVE PERCENT BY AUTOMATED COUNT 1.1 % Normal [facility] Comment on above: Performed By: #### C BCA, BMP, 88455-7, LIVR, 51957-0, 95893-9, 5643-2, 3040-3 #### [facility] ([id number]) [address] [place] [address] 50127 CELLAVISION DIFFERENTIAL TYPE AUTOMATED DIFFERENTIAL Normal [facility] Comment on above: Performed By: #### C BCA, BMP, 63787-8, LIVR, 87228-4, 47734-8, 5643-2, 3040-3 #### [facility] ([id number]) [address] [place] [address] 89219 Eosinophils (Bld) [#/Vol] 0.2 10*3/uL Normal 0.0-0.4 [facility] Comment on above: Performed By: #### C BCA, BMP, 00425-9, LIVR, 02876-6, 72893-5, 5643-2, 3040-3 #### [facility] ([id number]) [address] [place] [address] 29296 EOSINOPHILS RELATIVE PERCENT BY AUTOMATED COUNT 2.1 % Normal [facility] Comment on above: Performed By: #### C BCA, BMP, 21247-6, LIVR, 43328-3, 23728-1, 5643-2, 3040-3 #### [facility] ([id number]) [address] [place] [address] 52754 Erythrocyte distribution width (RBC) [Ratio] 13.2 % Normal 11.5-15 [facility] Comment on above: Performed By: #### C BCA, BMP, 67430-9, LIVR, 13865-2, 44565-3, 5643-2, 3040-3 #### [facility] ([id number]) [address] [place] [address] 28323 Hematocrit (Bld) [Volume fraction] 43.1 % Normal 35-47 [facility] Comment on above: Performed By: #### C BCA, BMP, 74381-7, LIVR, 30646-2, 08396-5, 5643-2, 3040-3 #### [facility] ([id number]) [address] [place] [address] 41624 Hemoglobin (Bld) [Mass/Vol] 15.0 g/dL Normal 11.7-15.5 [facility] Comment on above: Performed By: #### C BCA, BMP, 38838-3, LIVR, 53142-1, 78360-4, 5643-2, 3040-3 #### [facility] ([id number]) [address] [place] [address] 86049 LYMPHOCYTES ABSOLUTE COUNT (10*3/UL) BY AUTOMATED COUNT 3.4 10*3/uL Normal 1.0-3.5 [facility] Comment on above: Performed By: #### C BCA, BMP, 42145-3, LIVR, 12310-6, 44071-8, 5643-2, 3040-3 #### [facility] ([id number]) [address] [place] [address] 97038 LYMPHOCYTES RELATIVE PERCENT BY AUTOMATED COUNT 35.0 % Normal [facility] Comment on above: Performed By: #### C BCA, BMP, 73512-5, LIVR, 06333-5, 44414-1, 5643-2, 3040-3 #### [facility] ([id number]) [address] [place] [address] 19312 MCH (RBC) [Entitic mass] 33.8 pg Normal 27-34 [facility] Comment on above: Performed By: #### C BCA, BMP, 28872-1, LIVR, 66769-9, 54286-7, 5643-2, 3040-3 #### [facility] ([id number]) [address] [place] [address] 84020 MCHC (RBC) [Mass/Vol] 34.8 g/dL Normal 32-36 [facility] Comment on above: Performed By: #### C BCA, BMP, 88443-0, LIVR, 01437-6, 78624-6, 5643-2, 3040-3 #### [facility] ([id number]) [address] [place] [address] 05147 MCV (RBC) [Entitic vol] 97 fL Normal 80-100 [facility] Comment on above: Performed By: #### C BCA, BMP, 94069-1, LIVR, 64577-5, 58272-9, 5643-2, 3040-3 #### [facility] ([id number]) [address] [place] [address] 36743 MONOCYTES ABSOLUTE COUNT (10*3/UL) BY AUTOMATED COUNT 0.8 10*3/uL Normal 0.0-0.9 [facility] Comment on above: Performed By: #### C BCA, BMP, 43671-3, LIVR, 36715-0, 75715-3, 5643-2, 3040-3 #### [facility] ([id number]) [address] [place] [address] 58518 MONOCYTES RELATIVE PERCENT BY AUTOMATED COUNT 8.5 % Normal [facility] Comment on above: Performed By: #### C BCA, BMP, 80288-8, LIVR, 79680-6, 34247-7, 5643-2, 3040-3 #### [facility] ([id number]) [address] [place] [address] 48016 NEUTROPHILS ABSOLUTE COUNT BY AUTOMATED COUNT 5.2 10*3/uL Normal 1.5-6.6 [facility] Comment on above: Performed By: #### C BCA, BMP, 18664-1, LIVR, 27610-4, 50914-4, 5643-2, 3040-3 #### [facility] ([id number]) [address] [place] [address] 38453 NEUTROPHILS RELATIVE PERCENT BY AUTOMATED COUNT 53.3 % Normal [facility] Comment on above: Performed By: #### C BCA, BMP, 09547-0, LIVR, 03846-1, 64198-3, 5643-2, 3040-3 #### [facility] ([id number]) [address] [place] [address] 20641 Platelet mean volume (Bld) [Entitic vol] 8.0 fL Normal 7-12 [facility] Comment on above: Performed By: #### C BCA, BMP, 24949-7, LIVR, 41748-9, 55930-7, 5643-2, 3040-3 #### [facility] ([id number]) [address] [place] [address] 49665 Platelets (Bld) [#/Vol] 275 10*3/uL Normal 150-450 [facility] Comment on above: Performed By: #### C BCA, BMP, 13478-7, LIVR, 05107-5, 65294-3, 5643-2, 3040-3 #### [facility] ([id number]) [address] [place] [address] 87502 RBC COUNT 4.44 X10E12/L Normal 3.8-5.2 [facility] Comment on above: Performed By: #### C BCA, BMP, 01028-0, LIVR, 47850-9, 29288-2, 5643-2, 3040-3 #### [facility] ([id number]) [address] [place] [address] 15281 WBC (Bld) [#/Vol] 9.7 10*3/uL Normal 4-11 [facility] Comment on above: Performed By: #### C BCA, BMP, 51864-6, LIVR, 74964-9, 61109-7, 5643-2, 3040-3 #### [facility] ([id number]) [address] [place] [address] 72154 COMPREHENSIVE METABOLIC PANE [facility] 09-05-2024 Albumin [Mass/Vol] 4.2 g/dL Normal 3.2-5.3 [facility] Comment on above: Performed By: #### C BCA, BMP, 03952-2, LIVR, 44590-2, 29126-8, 5643-2, 3040-3 #### [facility] ([id number]) [address] [place] [address] 91726 ALP [Catalytic activity/Vol] 129 U/L Normal 39-130 [facility] Comment on above: Performed By: #### C BCA, BMP, 64684-3, LIVR, 98665-5, 91730-2, 5643-2, 3040-3 #### [facility] ([id number]) [address] [place] [address] 24160 ALT [Catalytic activity/Vol] 13 U/L Normal <=31 [facility] Comment on above: Performed By: #### C BCA, BMP, 27957-5, LIVR, 05579-4, 75601-4, 5643-2, 3040-3 #### [facility] ([id number]) [address] [place] [address] [place] [address] Anion gap [Moles/Vol] 7 mmol/L Normal 5-15 [facility] Comment on above: Performed By: #### C BCA, BMP, 31486-4, LIVR, 18106-0, 58182-8, 5643-2, 3040-3 #### [facility] ([id number]) [address] [place] [address] 36730 AST [Catalytic activity/Vol] 22 U/L Normal <=41 [facility] Comment on above: Performed By: #### C BCA, BMP, 72490-3, LIVR, 02993-2, 33158-4, 5643-2, 3040-3 #### [facility] ([id number]) [address] [place] [address] 45688 Bilirubin [Mass/Vol] 0.3 mg/dL Normal 0.3-1.2 [facility] Comment on above: Performed By: #### C BCA, BMP, 74313-0, LIVR, 41358-8, 46251-3, 5643-2, 3040-3 #### [facility] ([id number]) [address] [place] [address] 05093 Calcium [Mass/Vol] 10.2 mg/dL Normal 8.5-10.5 [facility] Comment on above: Performed By: #### C BCA, BMP, 51370-0, LIVR, 97093-6, 17566-0, 5643-2, 3040-3 #### [facility] ([id number]) [address] [place] [address] 77748 Chloride [Moles/Vol] 106 mmol/L Normal 98-109 [facility] Comment on above: Performed By: #### C BCA, BMP, 77364-2, LIVR, 19635-6, 19960-0, 5643-2, 3040-3 #### [facility] ([id number]) [address] [place] [address] 16327 CO2 [Moles/Vol] 26 mmol/L Normal 22-32 [facility] Comment on above: Performed By: #### C BCA, BMP, 66876-5, LIVR, 63291-2, 40841-2, 5643-2, 3040-3 #### [facility] ([id number]) [address] [place] [address] 64452 Creatinine [Mass/Vol] 0.74 mg/dL Normal 0.40-1.00 [facility] Comment on above: Result Comment: METH OD TRACEABLE TO IDMS STANDARD Performed By: #### C BCA, BMP, 97175-7, LIVR, 76632-3, 50136-9, 5643-2, 3040-3 #### [facility] ([id number]) [address] [place] [address] 36291 EGFR (CKD-EPI) NON-RACE DEPENDENT >^90 Normal >=60 [facility] Comment on above: Result Comment: eGFR not reported due to non-numeric value for Creatinine. Reported eGFR is based on the CKD-EPI 2020 equation that does not use a race coefficient. Performed By: #### C BCA, BMP, 94822-7, LIVR, 69356-7, 24156-3, 5643-2, 3040-3 #### [facility] ([id number]) [address] [place] [address] 06580 Glucose [Mass/Vol] 120 mg/dL High 65-99 [facility] Comment on above: Performed By: #### C BCA, BMP, 93096-6, LIVR, 54035-2, 12527-5, 5643-2, 3040-3 #### [facility] ([id number]) [address] [place] [address] 10319 Potassium [Moles/Vol] 3.6 mmol/L Normal 3.5-5.0 [facility] Comment on above: Performed By: #### C BCA, BMP, 87748-4, LIVR, 69995-3, 19131-3, 5643-2, 3040-3 #### [facility] ([id number]) [address] [place] [address] 43407 Protein [Mass/Vol] 7.5 g/dL Normal 6.0-8.0 [facility] Comment on above: Performed By: #### C BCA, BMP, 99091-7, LIVR, 93042-7, 15511-3, 5643-2, 3040-3 #### [facility] ([id number]) [address] [place] [address] 74277 Sodium [Moles/Vol] 139 mmol/L Normal 134-146 [facility] Comment on above: Performed By: #### C BCA, BMP, 21719-8, LIVR, 43794-7, 04316-3, 5643-2, 3040-3 #### [facility] ([id number]) [address] [place] [address] 85846 Urea nitrogen [Mass/Vol] 11 mg/dL Normal 5-23 [facility] Comment on above: Performed By: #### C BCA, BMP, 50510-0, LIVR, 03381-3, 37577-4, 5643-2, 3040-3 #### [facility] ([id number]) [address] [place] [address] 23108 LIPASEon 09-05-2024 Lipase [Catalytic activity/Vol] 44 U/L High 17-40 [facility] Comment on above: Performed By: #### C BCA, BMP, 94213-3, LIVR, 56699-6, 55635-4, 5643-2, 3040-3 #### [facility] ([id number]) [address] [place] [address] 88838 CBC WITH AUTO DIFFERENTIALon 08-10-2024 BASOPHILS ABSOLUTE COUNT (10*3/UL) BY AUTOMATED COUNT 0.2 10*3/uL Normal 0.0-0.2 [facility] Comment on above: Performed By: #### C BCA, BMP, 00939-8, LIVR, 91331-3, 53099-8, 5643-2, 3040-3 #### [facility] ([id number]) [address] [place] [address] 30302 BASOPHILS RELATIVE PERCENT BY AUTOMATED COUNT 2.0 % Normal [facility] Comment on above: Performed By: #### C BCA, BMP, 98618-7, LIVR, 75184-5, 87422-7, 5643-2, 3040-3 #### [facility] ([id number]) [address] [place] [address] 04558 CELLAVISION DIFFERENTIAL TYPE AUTOMATED DIFFERENTIAL Normal [facility] Comment on above: Performed By: #### C BCA, BMP, 34958-1, LIVR, 53899-2, 43317-1, 5643-2, 3040-3 #### [facility] ([id number]) [address] [place] [address] 75723 Eosinophils (Bld) [#/Vol] 0.1 10*3/uL Normal 0.0-0.4 [facility] Comment on above: Performed By: #### C BCA, BMP, 95702-4, LIVR, 94232-1, 32080-5, 5643-2, 3040-3 #### [facility] ([id number]) [address] [place] [address] 75405 EOSINOPHILS RELATIVE PERCENT BY AUTOMATED COUNT 0.8 % Normal [facility] Comment on above: Performed By: #### C BCA, BMP, 72325-6, LIVR, 60275-4, 48842-9, 5643-2, 3040-3 #### [facility] ([id number]) [address] [place] [address] 09526 Erythrocyte distribution width (RBC) [Ratio] 13.0 % Normal 11.5-15 [facility] Comment on above: Performed By: #### C BCA, BMP, 35285-2, LIVR, 63629-6, 86357-4, 5643-2, 3040-3 #### [facility] ([id number]) [address] [place] [address] 71943 Hematocrit (Bld) [Volume fraction] 41.7 % Normal 35-47 [facility] Comment on above: Performed By: #### C BCA, BMP, 33425-5, LIVR, 32592-4, 50708-3, 5643-2, 3040-3 #### [facility] ([id number]) [address] [place] [address] 40593 Hemoglobin (Bld) [Mass/Vol] 14.2 g/dL Normal 11.7-15.5 [facility] Comment on above: Performed By: #### C BCA, BMP, 66939-0, LIVR, 02352-3, 26138-1, 5643-2, 3040-3 #### [facility] ([id number]) [address] [place] [address] 73866 LYMPHOCYTES ABSOLUTE COUNT (10*3/UL) BY AUTOMATED COUNT 2.1 10*3/uL Normal 1.0-3.5 [facility] Comment on above: Performed By: #### C BCA, BMP, 62390-6, LIVR, 91784-7, 63262-2, 5643-2, 3040-3 #### [facility] ([id number]) [address] [place] [address] 59736 LYMPHOCYTES RELATIVE PERCENT BY AUTOMATED COUNT 18.1 % Normal [facility] Comment on above: Performed By: #### C BCA, BMP, 03436-9, LIVR, 20535-5, 93391-2, 5643-2, 3040-3 #### [facility] ([id number]) [address] [place] [address] 89506 MCH (RBC) [Entitic mass] 33.1 pg Normal 27-34 [facility] Comment on above: Performed By: #### C BCA, BMP, 33167-7, LIVR, 55968-6, 60626-3, 5643-2, 3040-3 #### [facility] ([id number]) [address] [place] [address] 51546 MCHC (RBC) [Mass/Vol] 34.0 g/dL Normal 32-36 [facility] Comment on above: Performed By: #### C BCA, BMP, 60243-1, LIVR, 48093-2, 91331-8, 5643-2, 3040-3 #### [facility] ([id number]) [address] [place] [address] 09032 MCV (RBC) [Entitic vol] 97 fL Normal 80-100 [facility] Comment on above: Performed By: #### C BCA, BMP, 45209-4, LIVR, 35328-5, 91736-3, 5643-2, 3040-3 #### [facility] ([id number]) [address] [place] [address] 10381 MONOCYTES ABSOLUTE COUNT (10*3/UL) BY AUTOMATED COUNT 0.9 10*3/uL Normal 0.0-0.9 [facility] Comment on above: Performed By: #### C BCA, BMP, 59926-0, LIVR, 16515-1, 73714-1, 5643-2, 3040-3 #### [facility] ([id number]) [address] [place] [address] 92060 MONOCYTES RELATIVE PERCENT BY AUTOMATED COUNT 7.9 % Normal [facility] Comment on above: Performed By: #### C BCA, BMP, 83034-4, LIVR, 45532-7, 45899-1, 5643-2, 3040-3 #### [facility] ([id number]) [address] [place] [address] 24496 NEUTROPHILS ABSOLUTE COUNT BY AUTOMATED COUNT 8.4 10*3/uL High 1.5-6.6 [facility] Comment on above: Performed By: #### C BCA, BMP, 82152-7, LIVR, 08892-7, 96078-0, 5643-2, 3040-3 #### [facility] ([id number]) [address] [place] [address] 87057 NEUTROPHILS RELATIVE PERCENT BY AUTOMATED COUNT 71.2 % Normal [facility] Comment on above: Performed By: #### C BCA, BMP, 36693-9, LIVR, 78048-8, 37347-3, 5643-2, 3040-3 #### [facility] ([id number]) [address] [place] [address] 79029 Platelet mean volume (Bld) [Entitic vol] 8.1 fL Normal 7-12 [facility] Comment on above: Performed By: #### C BCA, BMP, 44976-3, LIVR, 45598-3, 16881-3, 5643-2, 3040-3 #### [facility] ([id number]) [address] [place] [address] 46875 Platelets (Bld) [#/Vol] 272 10*3/uL Normal 150-450 [facility] Comment on above: Performed By: #### C BCA, BMP, 19035-6, LIVR, 00265-0, 21101-3, 5643-2, 3040-3 #### [facility] ([id number]) [address] [place] [address] 95188 RBC COUNT 4.28 X10E12/L Normal 3.8-5.2 [facility] Comment on above: Performed By: #### C BCA, BMP, 61700-3, LIVR, 89055-5, 50236-8, 5643-2, 3040-3 #### [facility] ([id number]) [address] [place] [address] 63170 WBC (Bld) [#/Vol] 11.8 10*3/uL High 4-11 [facility] Comment on above: Performed By: #### C BCA, BMP, 22355-6, LIVR, 20799-0, 98816-4, 5643-2, 3040-3 #### [facility] ([id number]) [address] [place] [address] 37125 COMPREHENSIVE METABOLIC PANE Nimesh 08-10-2024 Albumin [Mass/Vol] 4.2 g/dL Normal 3.2-5.3 [facility] Comment on above: Performed By: #### C BCA, BMP, 70438-6, LIVR, 57054-4, 67224-1, 5643-2, 3040-3 #### [facility] ([id number]) [address] [place] [address] 96037 ALP [Catalytic activity/Vol] 128 U/L Normal 39-130 [facility] Comment on above: Performed By: #### C BCA, BMP, 37763-3, LIVR, 72229-9, 23909-2, 5643-2, 3040-3 #### [facility] ([id number]) [address] [place] [address] 07911 ALT [Catalytic activity/Vol] 16 U/L Normal <=31 [facility] Comment on above: Performed By: #### C BCA, BMP, 13766-8, LIVR, 56367-0, 65009-3, 5643-2, 3040-3 #### [facility] ([id number]) [address] [place] [address] 70588 Anion gap [Moles/Vol] 4 mmol/L Low 5-15 [facility] Comment on above: Performed By: #### C BCA, BMP, 44208-3, LIVR, 85917-8, 82841-9, 5643-2, 3040-3 #### [facility] ([id number]) [address] [place] [address] 47949 AST [Catalytic activity/Vol] 23 U/L Normal <=41 [facility] Comment on above: Performed By: #### C BCA, BMP, 42343-1, LIVR, 63890-5, 01419-8, 5643-2, 3040-3 #### [facility] ([id number]) [address] [place] [address] 24971 Bilirubin [Mass/Vol] 0.3 mg/dL Normal 0.3-1.2 [facility] Comment on above: Performed By: #### C BCA, BMP, 77188-2, LIVR, 90318-9, 22435-7, 5643-2, 3040-3 #### [facility] ([id number]) [address] [place] [address] 12815 Calcium [Mass/Vol] 9.8 mg/dL Normal 8.5-10.5 [facility] Comment on above: Performed By: #### C BCA, BMP, 08798-3, LIVR, 96521-3, 53544-9, 5643-2, 3040-3 #### [facility] ([id number]) [address] [place] [address] 17517 Chloride [Moles/Vol] 106 mmol/L Normal 98-109 [facility] Comment on above: Performed By: #### C BCA, BMP, 18411-1, LIVR, 26195-9, 36175-3, 5643-2, 3040-3 #### [facility] ([id number]) [address] [place] [address] 37123 CO2 [Moles/Vol] 27 mmol/L Normal 22-32 [facility] Comment on above: Performed By: #### C BCA, BMP, 28396-9, LIVR, 81793-7, 41256-4, 5643-2, 3040-3 #### [facility] ([id number]) [address] [place] [address] 12269 Creatinine [Mass/Vol] 0.72 mg/dL Normal 0.40-1.00 [facility] Comment on above: Result Comment: METH OD TRACEABLE TO IDMS STANDARD Performed By: #### C BCA, BMP, 78519-2, LIVR, 55526-5, 86497-8, 5643-2, 3040-3 #### [facility] ([id number]) [address] [place] [address] 20662 EGFR (CKD-EPI) NON-RACE DEPENDENT >^90 Normal >=60 [facility] Comment on above: Result Comment: eGFR not reported due to non-numeric value for Creatinine. Reported eGFR is based on the CKD-EPI 2020 equation that does not use a race coefficient. Performed By: #### C BCA, BMP, 26035-1, LIVR, 45112-5, 91593-8, 5643-2, 3040-3 #### [facility] ([id number]) [address] [place] [address] 55683 Glucose [Mass/Vol] 115 mg/dL High 65-99 [facility] Comment on above: Performed By: #### C BCA, BMP, 63122-8, LIVR, 41162-6, 44621-1, 5643-2, 3040-3 #### [facility] ([id number]) [address] [place] [address] 53162 Potassium [Moles/Vol] 4.3 mmol/L Normal 3.5-5.0 [facility] Comment on above: Performed By: #### C BCA, BMP, 09408-5, LIVR, 53983-0, 15737-7, 5643-2, 3040-3 #### [facility] ([id number]) [address] [place] [address] 58589 Protein [Mass/Vol] 7.5 g/dL Normal 6.0-8.0 [facility] Comment on above: Performed By: #### C BCA, BMP, 05028-3, LIVR, 68022-5, 50064-3, 5643-2, 3040-3 #### [facility] ([id number]) [address] [place] [address] 59406 Sodium [Moles/Vol] 137 mmol/L Normal 134-146 [facility] Comment on above: Performed By: #### C BCA, BMP, 63556-5, LIVR, 71865-6, 94326-4, 5643-2, 3040-3 #### [facility] ([id number]) [address] [place] [address] 61713 Urea nitrogen [Mass/Vol] 10 mg/dL Normal 5-23 [facility] Comment on above: Performed By: #### C BCA, BMP, 47448-0, LIVR, 24547-0, 51629-9, 5643-2, 3040-3 #### [facility] ([id number]) [address] [place] [address] LIPASEon 08-10-2024 Lipase [Catalytic activity/Vol] 138 U/L High 17-40 [facility] Comment on above: Performed By: #### C BCA, BMP, 23161-3, LIVR, 93268-4, 36731-6, 5643-2, 3040-3 #### [facility] ([id number]) [address] [place] [address] 62319 CBC with Auto Differentialon 08-08-2024 Basophils (Bld) [#/Vol] 0.11 10*3/uL [facility] Basophils/100 WBC (Bld) 1 % 0 - 2 % [facility] Eosinophils (Bld) [#/Vol] 0.17 10*3/uL [facility] Eosinophils/100 WBC (Bld) 2 % 1 - 4 % [facility] Erythrocyte distribution width (RBC) [Ratio] 12.5 % 11.8 - 14.4 % [facility] Hematocrit (Bld) [Volume fraction] 44.1 % 36.3 - 47.1 % [facility] Hemoglobin (Bld) [Mass/Vol] 14.9 g/dL 11.9 - 15.1 g/dL [facility] Immature granulocytes (Bld) [#/Vol] 0.04 10*3/uL [facility] Immature granulocytes/100 WBC (Bld) 0 % 0 [facility] Lymphocytes/100 WBC (Bld) 30 % 24 - 43 % [facility] Lymphocytes/100 WBC (Bld) 3.09 % [facility] MCH (RBC) [Entitic mass] 33.4 pg 25.2 - 33.5 pg [facility] MCHC (RBC) [Mass/Vol] 33.8 g/dL 28.4 - 34.8 g/dL [facility] MCV (RBC) [Entitic vol] 98.9 fL 82.6 - 102.9 fL [facility] Monocytes/100 WBC (Bld) 9 % 3 - 12 % [facility] Monocytes/100 WBC (Bld) 0.88 % [facility] Neutrophils/100 WBC (Bld) 58 % 36 - 65 % [facility] Nucleated RBC/100 WBC (Bld) [Ratio] 0 % 0.0 per 100 WBC [facility] Platelet mean volume (Bld) [Entitic vol] 9.5 fL 8.1 - 13.5 fL [facility] Platelets (Bld) [#/Vol] 265 10*3/uL [facility] RBC (Bld) [#/Vol] 4.46 10*6/uL 3.95 - 5.11 m/uL [facility] Segmented neutrophils/100 WBC (Bld) 5.99 % [facility] WBC other (Bld) [#/Vol] 10.3 [facility] CBC with Diffon 08-08-2024 Abs. Basophil 0.11 k/uL Normal 0.00-0.20 [facility] Comment on above: Performed By: #### WALTER Arreaga CP, LIP #### [facility] [address] [place] [address] Stock Puller: Ion Jasso MD Abs.Imm.Granulocyte 0.04 k/uL Normal 0.00-0.30 [facility] Comment on above: Performed By: #### WALTER Arreaga CP, LIP #### [address] [place], [facility] Stock Puller: Ion Jasso MD Abs.Neutrophil (Seg) 5.99 k/uL Normal 1.50-8.10 [facility] Comment on above: Performed By: #### M G, CDP, CP, LIP #### [address] [place], [facility] Stock Puller: Ion Jasso MD Basophils/100 WBC (Bld) 1 % Normal 0-2 [facility] Comment on above: Performed By: #### M G, CDP, CP, LIP #### [address] [place], [facility] Stock Puller: Ion Jasso MD Eosinophils (Bld) [#/Vol] 0.17 10*3/uL Normal 0.00-0.44 [facility] Comment on above: Performed By: #### M G, CDP, CP, LIP #### [address] [place], [facility] Stock Puller: Ion Jasso MD Eosinophils/100 WBC (Bld) 2 % Normal 1-4 [facility] Comment on above: Performed By: #### M G, CDP, CP, LIP #### [address] [place], [facility] Stock Puller: Ion Jasso MD Erythrocyte distribution width (RBC) [Ratio] 12.5 % Normal 11.8-14.4 [facility] Comment on above: Performed By: #### M G, CDP, CP, LIP #### [address] [place], [facility] Stock Puller: Ion Jasso MD Hematocrit (Bld) [Volume fraction] 44.1 % Normal 36.3-47.1 [facility] Comment on above: Performed By: #### M G, CDP, CP, LIP #### [address] [place], [place] [id number] Stock Puller: Ion Jasso MD Hemoglobin (Bld) [Mass/Vol] 14.9 g/dL Normal 11.9-15.1 [facility] Comment on above: Performed By: #### M G, CDP, CP, LIP #### [address] [place], [place] [id number] Stock Puller: Ion Jasso MD Immature granulocytes/100 WBC (Bld) 0 % Normal 0 [facility] Comment on above: Performed By: #### M G, CDP, CP, LIP #### [address] [place], [facility] Stock Puller: Ion Jasso MD Lymphocytes (Bld) [#/Vol] 3.09 10*3/uL Normal 1.10-3.70 [facility] Comment on above: Performed By: #### M G, CDP, CP, LIP #### [address] [place], [facility] Stock Puller: Ion Jasso MD Lymphocytes/100 WBC (Bld) 30 % Normal 24-43 [facility] Comment on above: Performed By: #### M G, CDP, CP, LIP #### [address] [place], [facility] Stock Puller: Ion Jasso MD MCH (RBC) [Entitic mass] 33.4 pg Normal 25.2-33.5 [facility] Comment on above: Performed By: #### M G, CDP, CP, LIP #### [address] [place] [address] Stock Puller: Ion Jasso MD MCHC (RBC) [Mass/Vol] 33.8 g/dL Normal 28.4-34.8 [facility] Comment on above: Performed By: #### M G, CDP, CP, LIP #### [address] [place], [place] [id number] Stock Puller: Ion Jasso MD MCV (RBC) [Entitic vol] 98.9 fL Normal 82.6-102.9 [facility] Comment on above: Performed By: #### M G, CDP, CP, LIP #### [address] [place], [place] [id number] Stock Puller: Ion Jasso MD Monocytes (Bld) [#/Vol] 0.88 10*3/uL Normal 0.10-1.20 [facility] Comment on above: Performed By: #### M G, CDP, CP, LIP #### [address] [place], [facility]83 Stock Puller: Ion Jasso MD Monocytes/100 WBC (Bld) 9 % Normal 3-12 [facility] Comment on above: Performed By: #### M G, CDP, CP, LIP #### [address] [place], [facility]83 Stock Puller: Ion Jasso MD Neutrophil (Seg) 58 % Normal 36-65 [facility] Comment on above: Performed By: #### M G, CDP, CP, LIP #### [address] [place], [facility] Stock Puller: Ion Jasso MD NRBC Automated 0.0 per 100 WBC Normal 0.0 [facility] Comment on above: Performed By: #### M G, CDP, CP, LIP #### [address] [place], [place] [id number] Stock Puller: Ion Jasso MD Platelet mean volume (Bld) [Entitic vol] 9.5 fL Normal 8.1-13.5 [facility] Comment on above: Performed By: #### M G, CDP, CP, LIP #### [address] [place], [place] [id number] Stock Puller: Ion Jasso MD Platelets (Bld) [#/Vol] 265 10*3/uL Normal 138-453 [facility] Comment on above: Performed By: #### M G, CDP, CP, LIP #### [facility] [address] [place], [place] [id number] Stock Puller: Ion Jasso MD RBC (Bld) [#/Vol] 4.46 10*6/uL Normal 3.95-5.11 [facility] Comment on above: Performed By: #### M Jordana, CDP, CP, LIP #### [facility] [address] [place], [place] [id number] Stock Puller: Ion Jasso MD WBC (Bld) [#/Vol] 10.3 10*3/uL Normal 3.5-11.3 [facility] Comment on above: Performed By: #### Dayday Silveira, CDP, CP, LIP #### [facility] [address] [place], [place] [id number] Stock Puller: Ion Jasso MD [facility] Albumin [Mass/Vol] 4.3 g/dL 3.5 - 5.2 g/dL [facility] Albumin/Globulin [Mass ratio] 1.5 {ratio} 1.0 - 2.5 [facility] ALP [Catalytic activity/Vol] 142 U/L High 35 - 104 U/L [facility] ALT [Catalytic activity/Vol] 9 U/L Low 10 - 35 U/L [facility] Anion gap [Moles/Vol] 12 mmol/L 9 - 16 mmol/L [facility] AST [Catalytic activity/Vol] 21 U/L 10 - 35 U/L [facility] Bilirubin [Mass/Vol] mg/dL 0.00 - 1.20 mg/dL [facility] Calcium [Mass/Vol] 10.2 mg/dL 8.6 - 10. 4 mg/dL [facility] Chloride [Moles/Vol] 103 mmol/L 98 - 10 7 mmol/L [facility] CO2 [Moles/Vol] 24 mmol/L 20 - 31 mmol/L [facility] Creatinine [Mass/Vol] 0.8 mg/dL 0.50 - 0.90 mg/dL [facility] Kaylyn Prather Filt Rate 81 - PINF [facility] Comment on above: These results are [...] that affects renal tubular secretion. Glucose [Mass/Vol] 86 mg/dL 74 - 99 mg/dL [facility] Potassium [Moles/Vol] 4.5 mmol/L 3.7 - 5.3 mmol/L [facility] Protein [Mass/Vol] 7.3 g/dL 6.6 - 8.7 g/dL [facility] Sodium [Moles/Vol] 139 mmol/L 136 - 145 mmol/L [facility] Urea nitrogen [Mass/Vol] 16 mg/dL 6 - 20 mg/dL [facility] [facility] Urea nitrogen/Creatinine [Mass ratio] 20 mg/mg 9 - 20 [facility] Comp Metabolic Profon 2024 Albumin [Mass/Vol] 4.3 g/dL Normal 3.5-5.2 [facility] Comment on above: Performed By: #### M Jordana, WALTER, CP, LIP #### [facility] [address] [place] [address] Stock Puller: Ion Jasso MD Albumin/Glob Ratio 1.5 Normal 1.0-2.5 [facility] Comment on above: Performed By: #### M Jordana, CDP, CP, LIP #### [facility] [address] [place] [address] Stock Puller: Ion Jasso MD Alkaline Phos 142 U/L High 35-104 [facility] Comment on above: Performed By: #### M G, CDP, CP, LIP #### [facility] [address] [place], [place] [id number] Stock Puller: Ion Jasso MD ALT [Catalytic activity/Vol] 9 U/L Low 10-35 [facility] Comment on above: Performed By: #### M G, CDP, CP, LIP #### [facility] [address] [place], [place] [id number] Stock Puller: Ion Jasso MD Anion gap [Moles/Vol] 12 mmol/L Normal 9-16 [facility] Comment on above: Performed By: #### M G, CDP, CP, LIP #### [address] [place], [place] [id number] Stock Puller: Ion Jasso MD AST [Catalytic activity/Vol] 21 U/L Normal -35 [facility] Comment on above: Performed By: #### M G, CDP, CP, LIP #### [address] [place], [place] [id number] Stock Puller: Ion Jasso MD Bilirubin [Mass/Vol] mg/dL Normal 0.00-1.20 [facility] Comment on above: Performed By: #### M G, CDP, CP, LIP #### [address] [place], [place] [id number] Stock Puller: Ion Jasso MD BUN/CRE Ratio 20 Normal 9-20 [facility] Comment on above: Performed By: #### M G, CDP, CP, LIP #### [address] [place], [place] [id number] Stock Puller: Ion Jasso MD Calcium [Mass/Vol] 10.2 mg/dL Normal 8.6-10.4 [facility] Comment on above: Performed By: #### M G, CDP, CP, LIP #### [facility] [address] [place] [address] Stock Puller: Ion Jasso MD Chloride [Moles/Vol] 103 mmol/L Normal 98-107 [facility] Comment on above: Performed By: #### M G, CDP, CP, LIP #### [facility] [address] [place] [address] Stock Puller: Ion Jasso MD CO2 [Moles/Vol] 24 mmol/L Normal 20-31 [facility] Comment on above: Performed By: #### M G, CDP, CP, LIP #### [facility] [address] [place] [address] Stock Puller: Ion Jasso MD Creatinine [Mass/Vol] 0.8 mg/dL Normal 0.50-0.90 [facility] Comment on above: Performed By: #### M G, CDP, CP, LIP #### [facility] [address] [place] [address] Stock Puller: Ion Jasso MD GFR/1.73 sq M.predicted among non-blacks MDRD (S/P/Bld) [Vol rate/Area] 81 mL/min/{1.73_m2} Normal >60 [facility] Comment on above: Result Comment: These [...] affects renal tubular secretion. Performed By: #### M G, CDP, CP, LIP #### [facility] [address] [place] [address] Stock Puller: Ion Jasso MD Glucose [Mass/Vol] 86 mg/dL Normal 74-99 [facility] Comment on above: Performed By: #### M G, CDP, CP, LIP #### [facility] [address] [place], [place] [phone] Stock Puller: Ion Jasso MD Potassium [Moles/Vol] 4.5 mmol/L Normal 3.7-5.3 [facility] Comment on above: Performed By: #### M G, CDP, CP, LIP #### [facility] [address] [place], [place] [id number] Stock Puller: Ion Jasso MD Protein [Mass/Vol] 7.3 g/dL Normal 6.6-8.7 [facility] Comment on above: Performed By: #### M G, CDP, CP, LIP #### [address] [place], [place] [id number] Stock Puller: Ion Jasso MD Sodium [Moles/Vol] 139 mmol/L Normal 136-145 [facility] Comment on above: Performed By: #### M G, CDP, CP, LIP #### [facility] [address] [place] [address] Dr. [place], [place] [id number] Stock Puller: Ion Jasso MD Urea nitrogen [Mass/Vol] 16 mg/dL Normal 6-20 [facility] Comment on above: Performed By: #### M G, CDP, CP, LIP #### [address] [place], [place] [id number] Stock Puller: Ion aJsso MD Lactic Acidon 08-08-2024 Lactate (BldV) [Moles/Vol] 1.2 mmol/L 0.5 - 2.2 mmol/L [facility] Lactate [Moles/Vol] 1.2 mmol/L Normal 0.5-2.2 [facility] Comment on above: Performed By: #### M G, CDP, CP, LIP #### [address] [place], [place] [id number] Stock Puller: Ion Jasso MD Lipaseon 08-08-2024 Lipase [Catalytic activity/Vol] 109 U/L High 13 - 60 U/L [facility] Lipase [Catalytic activity/Vol] 109 U/L High 13-60 [facility] Comment on above: Performed By: #### M Jordana, WALTER, CP, LIP #### [facility] [address] [place] [address] Stock Puller: Ion Jasso MD Magnesiumon 08-08-2024 Magnesium [Mass/Vol] 2.4 mg/dL 1.6 - 2 .6 mg/dL [facility] Magnesium [Mass/Vol] 2.4 mg/dL Normal 1.6-2.6 [facility] Comment on above: Performed By: #### M Jordana, WALTER, CP, LIP #### [facility] [address] [place] [address] Stock Puller: Ion Jasso MD Microscopic Urinalysison Bacteria LM Ql (Urine sed) 1+ Abnormal None [facility] Epithelial cells LM.HPF (Urine sed) [#/Area] 10 TO 20 [facility] Interpretation and review of laboratory results Abnormal [facility] Mucus Ql (Urine sed) TRACE Abnormal None [facility] RBC LM.HPF (Urine sed) [#/Area] 0 TO 2 [facility] WBC LM.HPF (Urine sed) [#/Area] 0 TO 2 [facility] No Panel Informationon 08-08 Interpretation and review of laboratory results Abnormal [facility] UA w/Reflex Cultureon 2024 Clarity (U) SLIGHTLY CLOUDY Abnormal CLEAR [facility] Comment on above: Performed By: #### U SHAGUFTA FRIENDX #### [facility] [address] [place] [address] [place] [address] Stock Puller: Ion Jasso MD Color (U) Yellow Normal YEL [facility] Comment on above: Performed By: #### U MICAO, UAX #### [facility] [address] [place], [place] [phone] Stock Puller: Ion Jasso MD Leukocyte esterase Test strip Ql (U) Negative Normal NEG [facility] Comment on above: Performed By: #### U MICAO, UAX #### [facility] [address] [place], [place] [id number] Stock Puller: Ion Jasso MD Bilirubin, SemiQt,Ur Negative Normal NEG [facility] Comment on above: Performed By: #### U MICAO, UAX #### [address] [place], [place] 0116883 Stock Puller: Ion Jasso MD Blood, Urine Negative Normal NEG [facility] Comment on above: Performed By: #### U MICAO, UAX #### [facility] [address] [place] [address] Dr. [place], [place] [phone] Stock Puller: Ion Jasso MD Glucose Ql (U) Negative Normal NEG [facility] Comment on above: Performed By: #### U MICAO, UAX #### [address] [place], [place] 5297683 Stock Puller: Ion Jasso MD Ketones Ql (U) Negative Normal NEG [facility] Comment on above: Performed By: #### U MICAO, UAX #### [facility] [address] [place], [place] 7854083 Stock Puller: Ion Jasso MD Nitrite,Ur Negative Normal NEG [facility] Comment on above: Performed By: #### U MICAO, UAX #### [address] [place] [address] Stock Puller: Ion Jasso MD PH,Ur 6.0 Normal 5.0-9.0 [facility] Comment on above: Performed By: #### U MICAO, UAX #### [facility] [address] [place] [address] Stock Puller: Ion Jasso MD Protein Ql (U) Negative Normal NEG [facility] Comment on above: Performed By: #### U MICAO, UAX #### [facility] [address] [place] [address] Stock Puller: Ion Jasso MD Spec. [place],Ur 1.020 Normal 1.010-1.02 0 [facility] Comment on above: Performed By: #### U MICAO, UAX #### [facility] [address] [place] [address] Stock Puller: Ion Jasso MD Urobilinogen,Ur Normal Normal 0.0-1.0 [facility] Comment on above: Performed By: #### U MICAO, UAX #### [facility] [address] [place], [facility] Stock Puller: Ion Jasso MD Urinalysis with Reflex to Cu ltureon 08-08-2024 Bilirubin Ql (U) Negative NEGATIVE [facility] Glucose Test strip (U) [Mass/Vol] Negative NEGATIVE mg/dL [facility] Hemoglobin Auto test strip Ql (U) Negative NEGATIVE [facility] Interpretation and review of laboratory results Abnormal [facility] Ketones (U) [Mass/Vol] Negative NEGAT MATTHIAS mg/dL [facility] Nitrite Ql (U) Negative NEGATIVE [facility] pH (U) 6 [pH] 5.0 - 9.0 [facility] Protein (U) [Mass/Vol] Negative NEGAT MATTHIAS mg/dL [facility] Specific gravity (U) [Rel density] 1.02 1.010 - 1.020 [facility] Urobilinogen Qn (U) Normal 0.0 - 1. 0 EU/dL [facility] Urinalysis,Microon 5 Amorphous sediment LM Ql (Urine sed) TRACE Abnormal NONE [facility] Comment on above: Performed By: #### U MICAO, UAX #### [facility] [address] [place] [address] Stock Puller: Ion Jasso MD Bacteria 1+ Abnormal NONE [facility] Comment on above: Performed By: #### U MICAO, UAX #### [facility] [address] [place], [place] 5250383 Stock Puller: Ion Jasso MD Epithelial cells LM Ql (Urine sed) 10 TO 20 Normal 0-25 [facility] Comment on above: Performed By: #### U MICAO, UAX #### [facility] [address] [place], [place] [phone] Stock Puller: Ion Jasso MD Mucus Strands TRACE Abnormal [facility] Comment on above: Performed By: #### U AISHAO, UAX #### [facility] [address] [place], [place] 0161983 Stock Puller: Ion Jasso MD Urine RBC's 0 TO 2 Normal 0-2 [facility] Comment on above: Performed By: #### U MICAO, UAX #### [facility] [address] [place] [address] [place] [address] Stock Puller: Ion Jasso MD Urine WBC's 0 TO 2 Normal 0-5 [facility] Comment on above: Performed By: #### U MICAO, UAX #### [facility] [address] [place] [address] Stock Puller: Ion Jasso MD CBC AND AUTO DIFFon 06-28-19 25 ABSOLUTE BASOPHIL 0.1 X10E9/L Normal 0.0-0.2 [facility] Comment on above: Performed By: #### C BCA, BMP, 26077-9, LIVR, 34883-6, 42678-5, 5643-2, 3040-3 #### [facility] ([id number]) [address] [place] [address] 53439 ABSOLUTE NEUTROPHIL 4.9 X10E9/L Normal 1.5-6.6 [facility] Comment on above: Performed By: #### C BCA, BMP, 25655-1, LIVR, 18281-6, 04091-9, 5643-2, 3040-3 #### [facility] ([id number]) [address] [place] [address] 70039 Basophils/100 WBC (Bld) 1.2 % Normal [facility] Comment on above: Performed By: #### C BCA, BMP, 55454-8, LIVR, 38837-6, 27211-1, 5643-2, 3040-3 #### [facility] ([id number]) [address] [place] [address] 66521 Eosinophils (Bld) [#/Vol] 0.1 10*3/uL Normal 0.0-0.4 [facility] Comment on above: Performed By: #### C BCA, BMP, 97975-6, LIVR, 40252-9, 45335-6, 5643-2, 3040-3 #### [facility] ([id number]) [address] [place] [address] 78581 Eosinophils/100 WBC (Bld) 1.3 % Normal [facility] Comment on above: Performed By: #### C BCA, BMP, 04524-5, LIVR, 20126-1, 96567-6, 5643-2, 3040-3 #### [facility] ([id number]) [address] [place] [address] 61274 Erythrocyte distribution width (RBC) [Ratio] 13.1 % Normal 11.5-15.0 [facility] Comment on above: Performed By: #### C BCA, BMP, 12088-4, LIVR, 08947-1, 66877-6, 5643-2, 3040-3 #### [facility] ([id number]) [address] [place] [address] 96457 Hematocrit (Bld) [Volume fraction] 40.9 % Normal 35-47 [facility] Comment on above: Performed By: #### C BCA, BMP, 32868-1, LIVR, 45060-4, 24329-7, 5643-2, 3040-3 #### [facility] ([id number]) [address] [place] [address] 81327 Hemoglobin (Bld) [Mass/Vol] 14.3 g/dL Normal 11.7-15.5 [facility] Comment on above: Performed By: #### C BCA, BMP, 02813-1, LIVR, 83370-8, 98766-7, 5643-2, 3040-3 #### [facility] ([id number]) [address] [place] [address] 77625 Lymphocytes (Bld) [#/Vol] 2.3 10*3/uL Normal 1.0-3.5 [facility] Comment on above: Performed By: #### C BCA, BMP, 09571-3, LIVR, 90367-3, 83085-4, 5643-2, 3040-3 #### [facility] ([id number]) [address] [place] [address] 29952 Lymphocytes/100 WBC (Bld) 27.6 % Normal [facility] Comment on above: Performed By: #### C BCA, BMP, 36730-4, LIVR, 03557-4, 62657-8, 5643-2, 3040-3 #### [facility] ([id number]) [address] [place] [address] 27208 MCH (RBC) [Entitic mass] 34.2 pg High 27-34 [facility] Comment on above: Performed By: #### C BCA, BMP, 25323-9, LIVR, 09294-9, 77816-5, 5643-2, 3040-3 #### [facility] ([id number]) [address] [place] [address] 80401 MCHC (RBC) [Mass/Vol] 35.0 g/dL Normal 32-36 [facility] Comment on above: Performed By: #### C BCA, BMP, 46054-2, LIVR, 40595-5, 18127-6, 5643-2, 3040-3 #### [facility] ([id number]) [address] [place] [address] 47358 MCV (RBC) [Entitic vol] 98 fL Normal 80-100 [facility] Comment on above: Performed By: #### C BCA, BMP, 48623-5, LIVR, 45921-6, 15391-8, 5643-2, 3040-3 #### [facility] ([id number]) [address] [place] [address] 97717 Monocytes (Bld) [#/Vol] 1.0 10*3/uL High 0-0.9 [facility] Comment on above: Performed By: #### C BCA, BMP, 08839-6, LIVR, 01432-1, 83794-4, 5643-2, 3040-3 #### [facility] ([id number]) [address] [place] [address] 54277 Monocytes/100 WBC (Bld) 11.4 % Normal [facility] Comment on above: Performed By: #### C BCA, BMP, 14271-1, LIVR, 91560-2, 66752-9, 5643-2, 3040-3 #### [facility] ([id number]) [address] [place] [address] 83513 Neutrophils/100 WBC (Bld) 58.5 % Normal [facility] Comment on above: Performed By: #### C BCA, BMP, 13002-5, LIVR, 45900-6, 71734-8, 5643-2, 3040-3 #### [facility] ([id number]) [address] [place] [address] 91445 Platelet mean volume (Bld) [Entitic vol] 7.9 fL Normal 7-12 [facility] Comment on above: Performed By: #### C BCA, BMP, 67200-5, LIVR, 51382-0, 30123-6, 5643-2, 3040-3 #### [facility] ([id number]) [address] [place] [address] 86475 Platelets (Bld) [#/Vol] 267 10*3/uL Normal 150-450 [facility] Comment on above: Performed By: #### C BCA, BMP, 82736-0, LIVR, 92567-5, 53910-2, 5643-2, 3040-3 #### [facility] ([id number]) [address] [place] [address] 96372 RBC COUNT 4.18 X10E12/L Normal 3.80-5.20 [facility] Comment on above: Performed By: #### C BCA, BMP, 40804-6, LIVR, 88397-7, 09713-8, 5643-2, 3040-3 #### [facility] ([id number]) [address] [place] [address] 96256 WBC (Bld) [#/Vol] 8.4 10*3/uL Normal 4.0-11.0 [facility] Comment on above: Performed By: #### C BCA, BMP, 48418-0, LIVR, 65477-1, 38120-7, 5643-2, 3040-3 #### [facility] ([id number]) [address] [place] [address] 90259 COMPREHENSIVE METABOLIC PANE Nimesh 06-27-2024 Albumin [Mass/Vol] 4.1 g/dL Normal 3.2-5.3 [facility] Comment on above: Performed By: #### C BCA, BMP, 71258-6, LIVR, 96588-1, 20364-5, 5643-2, 3040-3 #### [facility] ([id number]) [address] [place] [address] 40672 ALP [Catalytic activity/Vol] 133 U/L High 39-130 [facility] Comment on above: Performed By: #### C BCA, BMP, 16157-3, LIVR, 89172-8, 69209-9, 5643-2, 3040-3 #### [facility] ([id number]) [address] [place] [address] 63469 ALT [Catalytic activity/Vol] 14 U/L Normal 0-31 [facility] Comment on above: Performed By: #### C BCA, BMP, 66489-5, LIVR, 29043-2, 23120-2, 5643-2, 3040-3 #### [facility] ([id number]) [address] [place] [address] 25433 Anion gap [Moles/Vol] 8 mmol/L Normal 5-15 [facility] Comment on above: Performed By: #### C BCA, BMP, 30162-3, LIVR, 26266-7, 37436-8, 5643-2, 3040-3 #### [facility] ([id number]) [address] [place] [address] 09541 AST [Catalytic activity/Vol] 19 U/L Normal 0-41 [facility] Comment on above: Performed By: #### C BCA, BMP, 40728-7, LIVR, 08167-2, 21893-0, 5643-2, 3040-3 #### [facility] ([id number]) [address] [place] [address] 44731 Bilirubin [Mass/Vol] 0.3 mg/dL Normal 0.3-1.2 [facility] Comment on above: Performed By: #### C BCA, BMP, 18231-6, LIVR, 35265-1, 11251-1, 5643-2, 3040-3 #### [facility] ([id number]) [address] [place] [address] 26955 Calcium [Mass/Vol] 10.7 mg/dL High 8.5-10.5 [facility] Comment on above: Performed By: #### C BCA, BMP, 69173-3, LIVR, 05459-7, 63190-5, 5643-2, 3040-3 #### [facility] ([id number]) [address] [place] [address] 87472 Chloride [Moles/Vol] 104 mmol/L Normal 98-109 [facility] Comment on above: Performed By: #### C BCA, BMP, 19066-3, LIVR, 16621-8, 67658-5, 5643-2, 3040-3 #### [facility] ([id number]) [address] [place] [address] 86162 CO2 [Moles/Vol] 26 mmol/L Normal 22-32 [facility] Comment on above: Performed By: #### C BCA, BMP, 58548-5, LIVR, 56472-4, 22332-5, 5643-2, 3040-3 #### [facility] ([id number]) [address] [place] [address] 37449 Creatinine [Mass/Vol] 0.76 mg/dL Normal 0.40-1.00 [facility] Comment on above: Result Comment: METH OD TRACEABLE TO IDMS STANDARD Performed By: #### C BCA, BMP, 01088-9, LIVR, 93929-9, 82756-7, 5643-2, 3040-3 #### [facility] ([id number]) [address] [place] [address] 79581 eGFR (CKD-EPI) NON-RACE DEPENDENT >90 Normal >59 [facility] Comment on above: Result Comment: Reported eGFR is based on the CKD-EPI 2020 equation that does not use a race coefficient. Performed By: #### C BCA, BMP, 50691-0, LIVR, 71469-3, 64555-6, 5643-2, 3040-3 #### [facility] ([id number]) [address] [place] [address] 68072 Glucose [Mass/Vol] 106 mg/dL High 65-99 [facility] Comment on above: Performed By: #### C BCA, BMP, 50562-0, LIVR, 49034-0, 54738-9, 5643-2, 3040-3 #### [facility] ([id number]) [address] [place] [address] 39671 Potassium [Moles/Vol] 3.9 mmol/L Normal 3.5-5.0 [facility] Comment on above: Performed By: #### C BCA, BMP, 44607-4, LIVR, 15189-1, 06552-8, 5643-2, 3040-3 #### [facility] ([id number]) [address] [place] [address] 33975 Protein [Mass/Vol] 7.0 g/dL Normal 6.0-8.0 [facility] Comment on above: Performed By: #### C BCA, BMP, 31052-4, LIVR, 25519-4, 38387-1, 5643-2, 3040-3 #### [facility] ([id number]) [address] [place] [address] 53083 Sodium [Moles/Vol] 138 mmol/L Normal 134-146 [facility] Comment on above: Performed By: #### C BCA, BMP, 33921-2, LIVR, 82584-8, 46872-7, 5643-2, 3040-3 #### [facility] ([id number]) [address] [place] [address] 36991 Urea nitrogen [Mass/Vol] 10 mg/dL Normal 5-23 [facility] Comment on above: Performed By: #### C BCA, BMP, 70080-8, LIVR, 28861-3, 04630-3, 5643-2, 3040-3 #### [facility] ([id number]) [address] [place] [address] 36617 LIPASEon 06-27-2024 Lipase [Catalytic activity/Vol] 37 U/L Normal 17-40 [facility] Comment on above: Performed By: #### C BCA, BMP, 80280-3, LIVR, 50012-1, 67870-4, 5643-2, 3040-3 #### [facility] ([id number]) [address] [place] [address] 30696 BASIC METABOLIC PANLon 06-15 Anion gap [Moles/Vol] 8 mmol/L Normal 5-15 [facility] Comment on above: Performed By: #### C BCA, BMP, 21767-5, LIVR, 36451-8, 56067-3, 5643-2, 3040-3 #### [facility] ([id number]) [address] [place] [address] 01549 Calcium [Mass/Vol] 9.7 mg/dL Normal 8.5-10.5 [facility] Comment on above: Performed By: #### C BCA, BMP, 95334-9, LIVR, 90221-1, 36755-2, 5643-2, 3040-3 #### [facility] ([id number]) [address] [place] [address] 90372 Chloride [Moles/Vol] 105 mmol/L Normal 98-109 [facility] Comment on above: Performed By: #### C BCA, BMP, 93913-9, LIVR, 61482-3, 50858-3, 5643-2, 3040-3 #### [facility] ([id number]) [address] [place] [address] 05395 CO2 [Moles/Vol] 24 mmol/L Normal 22-32 [facility] Comment on above: Performed By: #### C BCA, BMP, 87756-0, LIVR, 54635-5, 55537-2, 5643-2, 3040-3 #### [facility] ([id number]) [address] [place] [address] 14513 Creatinine [Mass/Vol] 0.78 mg/dL Normal 0.40-1.00 [facility] Comment on above: Result Comment: METH OD TRACEABLE TO IDMS STANDARD Performed By: #### C BCA, BMP, 52393-5, LIVR, 15935-9, 91684-4, 5643-2, 3040-3 #### [facility] ([id number]) [address] [place] [address] 60986 eGFR (CKD-EPI) NON-RACE DEPENDENT >90 Normal >59 [facility] Comment on above: Result Comment: Reported eGFR is based on the CKD-EPI 2021 equation that does not use a race coefficient. Performed By: #### C BCA, BMP, 93050-7, LIVR, 21311-9, 03870-3, 5643-2, 3040-3 #### [facility] ([id number]) [address] [place] [address] Glucose [Mass/Vol] 97 mg/dL Normal 65-99 [facility] Comment on above: Performed By: #### C BCA, BMP, 30823-9, LIVR, 01661-7, 76331-8, 5643-2, 3040-3 #### [facility] ([id number]) [address] [place] [address] Potassium [Moles/Vol] 3.3 mmol/L Low 3.5-5.0 [facility] Comment on above: Performed By: #### C BCA, BMP, 65331-9, LIVR, 49237-6, 40267-4, 5643-2, 3040-3 #### [facility] ([id number]) [address] [place] [address] Sodium [Moles/Vol] 137 mmol/L Normal 134-146 [facility] Comment on above: Performed By: #### C BCA, BMP, 20698-7, LIVR, 65509-7, 01492-5, 5643-2, 3040-3 #### [facility] ([id number]) [address] [place] [address]995 Urea nitrogen [Mass/Vol] 9 mg/dL Normal 5-23 [facility] Comment on above: Performed By: #### C BCA, BMP, 62668-7, LIVR, 21172-6, 41341-7, 5643-2, 3040-3 #### [facility] ([id number]) [address] [place] [id number] CBC AND AUTO DIFFon 06-16-19 25 ABSOLUTE BASOPHIL 0.1 X10E9/L Normal 0.0-0.2 [facility] Comment on above: Performed By: #### C BCA, BMP, 59828-0, LIVR, 06986-6, 85917-0, 5643-2, 3040-3 #### [facility] ([id number]) [address] [place] [address] 22550 ABSOLUTE NEUTROPHIL 6.2 X10E9/L Normal 1.5-6.6 [facility] Comment on above: Performed By: #### C BCA, BMP, 68885-0, LIVR, 46177-9, 95508-2, 5643-2, 3040-3 #### [facility] ([id number]) [address] [place] [address] 30133 Basophils/100 WBC (Bld) 0.9 % Normal [facility] Comment on above: Performed By: #### C BCA, BMP, 56293-9, LIVR, 82652-4, 82865-0, 5643-2, 3040-3 #### [facility] ([id number]) [address] [place] [address] 76254 Eosinophils (Bld) [#/Vol] 0.1 10*3/uL Normal 0.0-0.4 [facility] Comment on above: Performed By: #### C BCA, BMP, 00973-8, LIVR, 12766-7, 83188-1, 5643-2, 3040-3 #### [facility] ([id number]) [address] [place] [address] 04834 Eosinophils/100 WBC (Bld) 1.1 % Normal [facility] Comment on above: Performed By: #### C BCA, BMP, 06846-1, LIVR, 06458-6, 19099-9, 5643-2, 3040-3 #### [facility] ([id number]) [address] [place] [address] 24667 Erythrocyte distribution width (RBC) [Ratio] 13.3 % Normal 11.5-15.0 [facility] Comment on above: Performed By: #### C BCA, BMP, 96956-3, LIVR, 64996-5, 42933-5, 5643-2, 3040-3 #### [facility] ([id number]) [address] [place] [address] 31079 Hematocrit (Bld) [Volume fraction] 42.3 % Normal 35-47 [facility] Comment on above: Performed By: #### C BCA, BMP, 38484-3, LIVR, 40227-0, 75894-3, 5643-2, 3040-3 #### [facility] ([id number]) [address] [place] [address] 56272 Hemoglobin (Bld) [Mass/Vol] 14.3 g/dL Normal 11.7-15.5 [facility] Comment on above: Performed By: #### C BCA, BMP, 36064-8, LIVR, 77650-1, 50515-2, 5643-2, 3040-3 #### [facility] ([id number]) [address] [place] [address] 60465 Lymphocytes (Bld) [#/Vol] 2.6 10*3/uL Normal 1.0-3.5 [facility] Comment on above: Performed By: #### C BCA, BMP, 38345-6, LIVR, 93011-1, 58646-5, 5643-2, 3040-3 #### [facility] ([id number]) [address] [place] [address] 06839 Lymphocytes/100 WBC (Bld) 26.2 % Normal [facility] Comment on above: Performed By: #### C BCA, BMP, 56352-3, LIVR, 38388-5, 00997-8, 5643-2, 3040-3 #### [facility] ([id number]) [address] [place] [address] 22184 MCH (RBC) [Entitic mass] 33.5 pg Normal 27-34 [facility] Comment on above: Performed By: #### C BCA, BMP, 25665-9, LIVR, 96046-4, 99304-5, 5643-2, 3040-3 #### [facility] ([id number]) [address] [place] [address] 20430 MCHC (RBC) [Mass/Vol] 33.8 g/dL Normal 32-36 [facility] Comment on above: Performed By: #### C BCA, BMP, 03872-8, LIVR, 82349-4, 88667-7, 5643-2, 3040-3 #### [facility] ([id number]) [address] [place] [address] 01029 MCV (RBC) [Entitic vol] 99 fL Normal 80-100 [facility] Comment on above: Performed By: #### C BCA, BMP, 53176-3, LIVR, 46191-3, 09708-2, 5643-2, 3040-3 #### [facility] ([id number]) [address] [place] [address] 00191 Monocytes (Bld) [#/Vol] 0.8 10*3/uL Normal 0-0.9 [facility] Comment on above: Performed By: #### C BCA, BMP, 29354-7, LIVR, 22129-0, 35654-4, 5643-2, 3040-3 #### [facility] ([id number]) [address] [place] [address] 83572 Monocytes/100 WBC (Bld) 8.3 % Normal [facility] Comment on above: Performed By: #### C BCA, BMP, 61291-0, LIVR, 28158-8, 68499-1, 5643-2, 3040-3 #### [facility] ([id number]) [address] [place] [address] 34746 Neutrophils/100 WBC (Bld) 63.5 % Normal [facility] Comment on above: Performed By: #### C BCA, BMP, 85861-3, LIVR, 38714-2, 53552-8, 5643-2, 3040-3 #### [facility] ([id number]) [address] [place] [address] 99895 Platelet mean volume (Bld) [Entitic vol] 8.0 fL Normal 7-12 [facility] Comment on above: Performed By: #### C BCA, BMP, 41993-2, LIVR, 45481-2, 20297-1, 5643-2, 3040-3 #### [facility] ([id number]) [address] [place] [address] 89479 Platelets (Bld) [#/Vol] 263 10*3/uL Normal 150-450 [facility] Comment on above: Performed By: #### C BCA, BMP, 45946-4, LIVR, 20470-4, 33834-9, 5643-2, 3040-3 #### [facility] ([id number]) [address] [place] [address] 92593 RBC COUNT 4.28 X10E12/L Normal 3.80-5.20 [facility] Comment on above: Performed By: #### C BCA, BMP, 36677-2, LIVR, 99161-2, 59818-4, 5643-2, 3040-3 #### [facility] ([id number]) [address] [place] [address] 12343 WBC (Bld) [#/Vol] 9.8 10*3/uL Normal 4.0-11.0 [facility] Comment on above: Performed By: #### C BCA, BMP, 10625-2, LIVR, 68225-3, 59227-4, 5643-2, 3040-3 #### [facility] ([id number]) [address] [place] [address] 85113 ETHANOLon 06-15-2024 Ethanol [Mass/Vol] mg/dL Normal 0.00-0.08 [facility] Comment on above: Result Comment: This report is intended for use in clinical monitoring or management of patients. Performed By: #### C BCA, BMP, 71314-7, LIVR, 46639-7, 20444-2, 5643-2, 3040-3 #### [facility] ([id number]) [address] [place] [address] 31838 LIPASEon 06-15-2024 Lipase [Catalytic activity/Vol] 83 U/L High 17-40 [facility] Comment on above: Performed By: #### C BCA, BMP, 11841-2, LIVR, 10816-4, 85296-9, 5643-2, 3040-3 #### [facility] ([id number]) [address] [place] [address] 53450 LIVER PANELon 06-15-2024 Albumin [Mass/Vol] 4.2 g/dL Normal 3.2-5.3 [facility] Comment on above: Performed By: #### C BCA, BMP, 46342-4, LIVR, 66229-8, 93163-2, 5643-2, 3040-3 #### [facility] ([id number]) [address] [place] [address] 19458 ALP [Catalytic activity/Vol] 106 U/L Normal 39-130 [facility] Comment on above: Performed By: #### C BCA, BMP, 17144-7, LIVR, 72552-2, 87911-1, 5643-2, 3040-3 #### [facility] ([id number]) [address] [place] [address] 62250 ALT [Catalytic activity/Vol] 12 U/L Normal 0-31 [facility] Comment on above: Performed By: #### C BCA, BMP, 66739-1, LIVR, 76459-0, 26229-3, 5643-2, 3040-3 #### [facility] ([id number]) [address] [place] [address] 11314 AST [Catalytic activity/Vol] 18 U/L Normal 0-41 [facility] Comment on above: Performed By: #### C BCA, BMP, 14845-5, LIVR, 70655-7, 16672-7, 5643-2, 3040-3 #### [facility] ([id number]) [address] [place] [address] 19965 Bilirubin [Mass/Vol] 0.3 mg/dL Normal 0.3-1.2 [facility] Comment on above: Performed By: #### C BCA, BMP, 57798-4, LIVR, 04506-7, 12469-4, 5643-2, 3040-3 #### [facility] ([id number]) [address] [place] [address] 57377 Bilirubin.indirect [Mass/Vol] mg/dL Normal 0.0-0.4 [facility] Comment on above: Performed By: #### C BCA, BMP, 98149-5, LIVR, 87900-0, 53802-7, 5643-2, 3040-3 #### [facility] ([id number]) [address] [place] [address] 09255 Protein [Mass/Vol] 7.0 g/dL Normal 6.0-8.0 [facility] Comment on above: Performed By: #### C BCA, BMP, 12770-0, LIVR, 38386-2, 80151-7, 5643-2, 3040-3 #### [facility] ([id number]) [address] [place] [address] 85877 Lactate (P richard) [Moles/Vol]o n 06-15-2024 LACTATE W/REFLEX 1.1 mmol/L Normal 0.4-2.0 [facility] Comment on above: Result Comment: Result did not trigger repeat Lactate, re-order if needed. Performed By: #### C BCA, BMP, 73586-1, LIVR, 33317-6, 58116-4, 5643-2, 3040-3 #### [facility] ([id number]) [address] [place] [address] 51426 MAGNESIUMon 06-15-2024 Magnesium [Mass/Vol] 2.1 mg/dL Normal 1.8-2.6 [facility] Comment on above: Performed By: #### C BCA, BMP, 23636-6, LIVR, 38530-5, 59526-0, 5643-2, 3040-3 #### [facility] ([id number]) [address] [place] [address] 85935 CBC AND AUTO DIFFon 03-25-20 25 ABSOLUTE BASOPHIL 0.1 X10E9/L Normal 0.0-0.2 [facility] Comment on above: Performed By: #### C BCA, BMP, 20793-0, LIVR, 42821-0, 72161-7, 5643-2, 3040-3 #### [facility] ([id number]) [address] [place] [address] 09964 ABSOLUTE NEUTROPHIL 7.2 X10E9/L High 1.5-6.6 [facility] Comment on above: Performed By: #### C BCA, BMP, 83373-7, LIVR, 70626-5, 11797-4, 5643-2, 3040-3 #### [facility] ([id number]) [address] [place] [address] 59705 Basophils/100 WBC (Bld) 1.3 % Normal [facility] Comment on above: Performed By: #### C BCA, BMP, 55823-1, LIVR, 81941-2, 03075-8, 5643-2, 3040-3 #### [facility] ([id number]) [address] [place] [address] 94817 Eosinophils (Bld) [#/Vol] 0.1 10*3/uL Normal 0.0-0.4 [facility] Comment on above: Performed By: #### C BCA, BMP, 98287-2, LIVR, 85522-4, 66318-0, 5643-2, 3040-3 #### [facility] ([id number]) [address] [place] [address] 52491 Eosinophils/100 WBC (Bld) 0.9 % Normal [facility] Comment on above: Performed By: #### C BCA, BMP, 60570-1, LIVR, 46052-3, 07615-0, 5643-2, 3040-3 #### [facility] ([id number]) [address] [place] [address] 99662 Erythrocyte distribution width (RBC) [Ratio] 13.1 % Normal 11.5-15.0 [facility] Comment on above: Performed By: #### C BCA, BMP, 57041-5, LIVR, 77514-9, 95780-7, 5643-2, 3040-3 #### [facility] ([id number]) [address] [place] [address] 35741 Hematocrit (Bld) [Volume fraction] 40.2 % Normal 35-47 [facility] Comment on above: Performed By: #### C BCA, BMP, 30384-0, LIVR, 74281-0, 97026-4, 5643-2, 3040-3 #### [facility] ([id number]) [address] [place] [address] 62519 Hemoglobin (Bld) [Mass/Vol] 14.0 g/dL Normal 11.7-15.5 [facility] Comment on above: Performed By: #### C BCA, BMP, 49902-2, LIVR, 39095-0, 49158-7, 5643-2, 3040-3 #### [facility] ([id number]) [address] [place] [address] 28267 Lymphocytes (Bld) [#/Vol] 2.7 10*3/uL Normal 1.0-3.5 [facility] Comment on above: Performed By: #### C BCA, BMP, 09369-6, LIVR, 56697-3, 83901-1, 5643-2, 3040-3 #### [facility] ([id number]) [address] [place] [address] 66007 Lymphocytes/100 WBC (Bld) 24.0 % Normal [facility] Comment on above: Performed By: #### C BCA, BMP, 79761-1, LIVR, 96143-4, 26472-1, 5643-2, 3040-3 #### [facility] ([id number]) [address] [place] [address] 85323 MCH (RBC) [Entitic mass] 34.0 pg Normal 27-34 [facility] Comment on above: Performed By: #### C BCA, BMP, 07653-5, LIVR, 15645-1, 92571-4, 5643-2, 3040-3 #### [facility] ([id number]) [address] [place] [address] 41218 MCHC (RBC) [Mass/Vol] 34.7 g/dL Normal 32-36 [facility] Comment on above: Performed By: #### C BCA, BMP, 44219-8, LIVR, 30855-4, 31240-7, 5643-2, 3040-3 #### [facility] ([id number]) [address] [place] [address] 57593 MCV (RBC) [Entitic vol] 98 fL Normal 80-100 [facility] Comment on above: Performed By: #### C BCA, BMP, 29622-9, LIVR, 12139-4, 09186-3, 5643-2, 3040-3 #### [facility] ([id number]) [address] [place] [address] 99628 Monocytes (Bld) [#/Vol] 1.1 10*3/uL High 0-0.9 [facility] Comment on above: Performed By: #### C BCA, BMP, 37887-3, LIVR, 38987-7, 62436-2, 5643-2, 3040-3 #### [facility] ([id number]) [address] [place] [address] 69245 Monocytes/100 WBC (Bld) 9.6 % Normal [facility] Comment on above: Performed By: #### C BCA, BMP, 25448-2, LIVR, 84292-1, 68842-5, 5643-2, 3040-3 #### [facility] ([id number]) [address] [place] [address] 88314 Neutrophils/100 WBC (Bld) 64.2 % Normal [facility] Comment on above: Performed By: #### C BCA, BMP, 50781-3, LIVR, 25559-7, 14879-4, 5643-2, 3040-3 #### [facility] ([id number]) [address] [place] [address] 22612 Platelet mean volume (Bld) [Entitic vol] 7.8 fL Normal 7-12 [facility] Comment on above: Performed By: #### C BCA, BMP, 61794-4, LIVR, 47144-5, 20485-6, 5643-2, 3040-3 #### [facility] ([id number]) [address] [place] [address] 35203 Platelets (Bld) [#/Vol] 302 10*3/uL Normal 150-450 [facility] Comment on above: Performed By: #### C BCA, BMP, 02861-7, LIVR, 37853-9, 06291-8, 5643-2, 3040-3 #### [facility] ([id number]) [address] [place] [address] 47141 RBC COUNT 4.11 X10E12/L Normal 3.80-5.20 [facility] Comment on above: Performed By: #### C BCA, BMP, 40152-7, LIVR, 44972-8, 42655-9, 5643-2, 3040-3 #### [facility] ([id number]) [address] [place] [address] 84277 WBC (Bld) [#/Vol] 11.2 10*3/uL High 4.0-11.0 [facility] Comment on above: Performed By: #### C BCA, BMP, 78811-5, LIVR, 52472-0, 47081-2, 5643-2, 3040-3 #### [facility] ([id number]) [address] [place] [address] 96416 COMPREHENSIVE METABOLIC PANE Nimesh 05-31-2024 Albumin [Mass/Vol] 4.0 g/dL Normal 3.2-5.3 [facility] Comment on above: Performed By: #### C BCA, BMP, 18221-0, LIVR, 40030-3, 74310-7, 5643-2, 0-3 #### [facility] ([id number]) [address] [place] [address] 36978 ALP [Catalytic activity/Vol] 97 U/L Normal 39-130 [facility] Comment on above: Performed By: #### C BCA, BMP, 01139-3, LIVR, 17184-7, 65148-4, 5643-2, 3040-3 #### [facility] ([id number]) [address] [place] [address] 38029 ALT [Catalytic activity/Vol] 12 U/L Normal 0-31 [facility] Comment on above: Performed By: #### C BCA, BMP, 76015-1, LIVR, 17400-9, 06976-1, 5643-2, 3040-3 #### [facility] ([id number]) [address] [place] [address] 74105 Anion gap [Moles/Vol] 7 mmol/L Normal 5-15 [facility] Comment on above: Performed By: #### C BCA, BMP, 89821-8, LIVR, 52552-3, 99319-3, 5643-2, 3040-3 #### [facility] ([id number]) [address] [place] [address] 18261 AST [Catalytic activity/Vol] 19 U/L Normal 0-41 [facility] Comment on above: Performed By: #### C BCA, BMP, 73252-6, LIVR, 76421-3, 44349-3, 5643-2, 3040-3 #### [facility] ([id number]) [address] [place] [address] 81636 Bilirubin [Mass/Vol] 0.4 mg/dL Normal 0.3-1.2 [facility] Comment on above: Performed By: #### C BCA, BMP, 18324-1, LIVR, 23604-5, 27069-8, 5643-2, 3040-3 #### [facility] ([id number]) [address] [place] [address] 02697 Calcium [Mass/Vol] 9.3 mg/dL Normal 8.5-10.5 [facility] Comment on above: Performed By: #### C BCA, BMP, 81941-4, LIVR, 14589-0, 49940-6, 5643-2, 3040-3 #### [facility] ([id number]) [address] [place] [address] 92118 Chloride [Moles/Vol] 106 mmol/L Normal 98-109 [facility] Comment on above: Performed By: #### C BCA, BMP, 75602-0, LIVR, 49437-3, 11037-6, 5643-2, 3040-3 #### [facility] ([id number]) [address] [place] [address] 09711 CO2 [Moles/Vol] 23 mmol/L Normal 22-32 [facility] Comment on above: Performed By: #### C BCA, BMP, 51846-0, LIVR, 71273-1, 79421-2, 5643-2, 3040-3 #### [facility] ([id number]) [address] [place] [address] 53067 Creatinine [Mass/Vol] 0.60 mg/dL Normal 0.40-1.00 [facility] Comment on above: Result Comment: METH OD TRACEABLE TO IDMS STANDARD Performed By: #### C BCA, BMP, 83029-3, LIVR, 28940-6, 66363-6, 5643-2, 3040-3 #### [facility] ([id number]) [address] [place] [address] 83296 eGFR (CKD-EPI) NON-RACE DEPENDENT >90 Normal >59 [facility] Comment on above: Result Comment: Reported eGFR is based on the CKD-EPI 2020 equation that does not use a race coefficient. Performed By: #### C BCA, BMP, 91134-9, LIVR, 92549-4, 26125-2, 5643-2, 3040-3 #### [facility] ([id number]) [address] [place] [address] 96446 Glucose [Mass/Vol] 101 mg/dL High 65-99 [facility] Comment on above: Performed By: #### C BCA, BMP, 25386-0, LIVR, 56828-4, 99342-8, 5643-2, 3040-3 #### [facility] ([id number]) [address] [place] [address] 21505 Potassium [Moles/Vol] 3.6 mmol/L Normal 3.5-5.0 [facility] Comment on above: Performed By: #### C BCA, BMP, 08143-9, LIVR, 45128-1, 96826-5, 5643-2, 3040-3 #### [facility] ([id number]) [address] [place] [address] 03870 Protein [Mass/Vol] 7.2 g/dL Normal 6.0-8.0 [facility] Comment on above: Performed By: #### C BCA, BMP, 58302-1, LIVR, 16946-5, 34074-5, 5643-2, 3040-3 #### [facility] ([id number]) [address] [place] [address] 55084 Sodium [Moles/Vol] 136 mmol/L Normal 134-146 [facility] Comment on above: Performed By: #### C BCA, BMP, 66641-8, LIVR, 35259-0, 34456-1, 5643-2, 3040-3 #### [facility] ([id number]) [address] [place] [address] 25492 Urea nitrogen [Mass/Vol] 11 mg/dL Normal 5-23 [facility] Comment on above: Performed By: #### C BCA, BMP, 70415-7, LIVR, 56302-9, 55746-4, 5643-2, 3040-3 #### [facility] ([id number]) [address] [place] [address] 01234 LIPASEon 05-31-2024 Lipase [Catalytic activity/Vol] 104 U/L High 17-40 [facility] Comment on above: Performed By: #### C BCA, BMP, 70376-0, LIVR, 12792-5, 54911-8, 5643-2, 3040-3 #### [facility] ([id number]) [address] [place] [address] 59781 Basic Metabolic Panelon 03-11 Anion gap [Moles/Vol] 8 mmol/L Low 9 - 16 mmol/L [facility] Calcium [Mass/Vol] 8.3 mg/dL Low 8.6 - 10. 4 mg/dL Bon [facility] Chloride [Moles/Vol] 108 mmol/L High 98 - 10 7 mmol/L Bon [facility] CO2 [Moles/Vol] 23 mmol/L 20 - 31 mmol/L [facility] Creatinine [Mass/Vol] 0.6 mg/dL 0.50 - 0.90 mg/dL [facility] Est, Kaylyn Gordon Rate - PINF [facility] Comment on above: These results are [...] [Mass/Vol] 83 mg/dL 74 - 99 mg/dL [facility] Potassium [Moles/Vol] 4.0 mmol/L 3.7 - 5.3 mmol/L [facility] Sodium [Moles/Vol] 139 mmol/L 136 - 145 mmol/L [facility] Urea nitrogen [Mass/Vol] 10 mg/dL 6 - 20 mg/dL [facility] Urea nitrogen/Creatinine [Mass ratio] 17 mg/mg 9 - 20 [facility] Basic Metabolic Profon 04-07 Anion gap [Moles/Vol] 8 mmol/L Low 9-16 [facility] Comment on above: Performed By: #### M G, CDP, CP, LIP #### [facility] [address] [place] [address] [place] [address] Stock Puller: Ion Jasso MD BUN/CRE Ratio 17 Normal -20 [facility] Comment on above: Performed By: #### M G, CDP, CP, LIP #### [facility] [address] [place] [address] Stock Puller: Ion Jasso MD Calcium [Mass/Vol] 8.3 mg/dL Low 8.6-10.4 [facility] Comment on above: Performed By: #### M G, CDP, CP, LIP #### [facility] [address] [place] [address] Stock Puller: Ion Jasso MD Chloride [Moles/Vol] 108 mmol/L High 98-107 [facility] Comment on above: Performed By: #### M G, CDP, CP, LIP #### [facility] [address] [place] [address] Stock Puller: Ion Jasso MD CO2 [Moles/Vol] 23 mmol/L Normal 20-31 [facility] Comment on above: Performed By: #### M G, CDP, CP, LIP #### [facility] [address] [place] [address] Stock Puller: Ion Jasso MD Creatinine [Mass/Vol] 0.6 mg/dL Normal 0.50-0.90 [facility] Comment on above: Performed By: #### M G, CDP, CP, LIP #### [facility] [address] [place] [address] Stock Puller: Ion Jasso MD GFR/1.73 sq M.predicted among non-blacks MDRD (S/P/Bld) [Vol rate/Area] mL/min/{1.73_m2} Normal >60 [facility] Comment on above: Result Comment: These [...] affects renal tubular secretion. Performed By: #### M G, CDP, CP, LIP #### [facility] [address] [place] [address] Stock Puller: Ion Jasso MD Glucose [Mass/Vol] 83 mg/dL Normal 74-99 [facility] Comment on above: Performed By: #### M G, CDP, CP, LIP #### [facility] [address] [place] [address] [place] [address] Stock Puller: Ion Jasso MD Potassium [Moles/Vol] 4.0 mmol/L Normal 3.7-5.3 [facility] Comment on above: Performed By: #### M G, CDP, CP, LIP #### [facility] [address] [place] [address] Dr. [place], [place] [id number] Stock Puller: Ion Jasso MD Sodium [Moles/Vol] 139 mmol/L Normal 136-145 [facility] Comment on above: Performed By: #### M G, CDP, CP, LIP #### [facility] [address] [place] [address] Dr. [place], [facility] Stock Puller: Ion Jasso MD Urea nitrogen [Mass/Vol] 10 mg/dL Normal 6-20 [facility] Comment on above: Performed By: #### M G, CDP, CP, LIP #### [facility] [address] [place] [address] Dr. [place], [facility] Stock Puller: Ion Jasso MD CBC with Auto Differentialon 04-07-2024 Basophils (Bld) [#/Vol] 0.08 10*3/uL [facility] Basophils/100 WBC (Bld) 1 % 0 - 2 % [facility] Eosinophils (Bld) [#/Vol] 0.13 10*3/uL [facility] Eosinophils/100 WBC (Bld) 1 % 1 - 4 % [facility] Erythrocyte distribution width (RBC) [Ratio] 13.1 % 11.8 - 14.4 % [facility] Hematocrit (Bld) [Volume fraction] 40.1 % 36.3 - 47.1 % [facility] Hemoglobin (Bld) [Mass/Vol] 14.0 g/dL 11.9 - 15.1 g/dL [facility] Immature granulocytes (Bld) [#/Vol] 0.03 10*3/uL [facility] Immature granulocytes/100 WBC (Bld) 0 % 0 [facility] Interpretation and review of laboratory results Abnormal [facility] Lymphocytes/100 WBC (Bld) 26 % 24 - 43 % [facility] Lymphocytes/100 WBC (Bld) 2.39 % [facility] MCH (RBC) [Entitic mass] 33.9 pg High 25.2 - 33.5 pg [facility] MCHC (RBC) [Mass/Vol] 34.9 g/dL High 28.4 - 34.8 g/dL [facility] MCV (RBC) [Entitic vol] 97.1 fL 82.6 - 102.9 fL [facility] Monocytes/100 WBC (Bld) 8 % 3 - 12 % [facility] Monocytes/100 WBC (Bld) 0.76 % [facility] Neutrophils/100 WBC (Bld) 64 % 36 - 65 % [facility] Nucleated RBC/100 WBC (Bld) [Ratio] 0.0 % 0.0 per 100 WBC [facility] Platelet mean volume (Bld) [Entitic vol] 10.6 fL 8.1 - 13.5 fL [facility] Platelets (Bld) [#/Vol] 267 10*3/uL [facility] RBC (Bld) [#/Vol] 4.13 10*6/uL 3.95 - 5.11 m/uL [facility] Segmented neutrophils/100 WBC (Bld) 5.87 % [facility] WBC other (Bld) [#/Vol] 9.3 [facility] CBC with Diffon 04-07-2024 Abs. Basophil 0.08 k/uL Normal 0.00-0.20 [facility] Comment on above: Performed By: #### C DP, REJEC #### [facility] [address] [place] [address] [place] [address] Stock Puller: Ion Jasso MD Abs.Imm.Granulocyte 0.03 k/uL Normal 0.00-0.30 [facility] Comment on above: Performed By: #### C DP, REJEC #### [facility] [address] [place] [address] Stock Puller: Ion Jasso MD Abs.Neutrophil (Seg) 5.87 k/uL Normal 1.50-8.10 [facility] Comment on above: Performed By: #### C DP, REJEC #### [address] [place], [place] [address] Stock Puller: Ion Jasso MD Basophils/100 WBC (Bld) 1 % Normal 0-2 [facility] Comment on above: Performed By: #### C DP, REJEC #### [address] [place], [place] [address] Stock Puller: Ion Jasso MD Eosinophils (Bld) [#/Vol] 0.13 10*3/uL Normal 0.00-0.44 [facility] Comment on above: Performed By: #### C DP, REJEC #### [address] [place], [place] [address] Stock Puller: Ion Jasso MD Eosinophils/100 WBC (Bld) 1 % Normal 1-4 [facility] Comment on above: Performed By: #### C DP, REJEC #### [address] [place], [place] [address] Stock Puller: Ion Jasso MD Erythrocyte distribution width (RBC) [Ratio] 13.1 % Normal 11.8-14.4 [facility] Comment on above: Performed By: #### C DP, REJEC #### [address] [place], [facility] Stock Puller: Ion Jasso MD Hematocrit (Bld) [Volume fraction] 40.1 % Normal 36.3-47.1 [facility] Comment on above: Performed By: #### C DP, REJEC #### [address] [place], [facility] Stock Puller: Ion Jasso MD Hemoglobin (Bld) [Mass/Vol] 14.0 g/dL Normal 11.9-15.1 [facility] Comment on above: Performed By: #### C DP, REJEC #### [facility] [address] [place], [place] [phone] Stock Puller: Ion Jasso MD Immature granulocytes/100 WBC (Bld) 0 % Normal 0 [facility] Comment on above: Performed By: #### C DP, REJEC #### [facility] [address] [place], [place] [address] Stock Puller: Ion Jasso MD Lymphocytes (Bld) [#/Vol] 2.39 10*3/uL Normal 1.10-3.70 [facility] Comment on above: Performed By: #### C DP, REJEC #### [address] [place], [facility] Stock Puller: Ion Jasso MD Lymphocytes/100 WBC (Bld) 26 % Normal 24-43 [facility] Comment on above: Performed By: #### C DP, REJEC #### [address] [place], [place] [address] Stock Puller: Ion Jasso MD MCH (RBC) [Entitic mass] 33.9 pg High 25.2-33.5 [facility] Comment on above: Performed By: #### C DP, REJEC #### [address] [place], [facility] Stock Puller: Ion Jasso MD MCHC (RBC) [Mass/Vol] 34.9 g/dL High 28.4-34.8 [facility] Comment on above: Performed By: #### C DP, REJEC #### [address] [place] [address] Stock Puller: Ion Jasso MD MCV (RBC) [Entitic vol] 97.1 fL Normal 82.6-102.9 [facility] Comment on above: Performed By: #### C DP, REJEC #### [facility] [address] [place], [place] [phone] Stock Puller: Ion Jasso MD Monocytes (Bld) [#/Vol] 0.76 10*3/uL Normal 0.10-1.20 [facility] Comment on above: Performed By: #### C DP, REJEC #### [facility] [address] [place], [facility]83 Stock Puller: Ion Jasso MD Monocytes/100 WBC (Bld) 8 % Normal 3-12 [facility] Comment on above: Performed By: #### C DP, REJEC #### [address] [place], [place] [phone] Stock Puller: Ion Jasso MD Neutrophil (Seg) 64 % Normal 36-65 [facility] Comment on above: Performed By: #### C DP, REJEC #### [address] [place], [facility]83 Stock Puller: Ion Jasso MD NRBC Automated 0.0 per 100 WBC Normal 0.0 [facility] Comment on above: Performed By: #### C DP, REJEC #### [address] [place], [place] [phone] Stock Puller: Ion Jasso MD Platelet mean volume (Bld) [Entitic vol] 10.6 fL Normal 8.1-13.5 [facility] Comment on above: Performed By: #### C DP, REJEC #### [address] [place], [place] [phone] Stock Puller: Ion Jasso MD Platelets (Bld) [#/Vol] 267 10*3/uL Normal 138-453 [facility] Comment on above: Performed By: #### C DP, REJEC #### [address] [place], [place] 1134583 Stock Puller: Ion Jasso MD RBC (Bld) [#/Vol] 4.13 10*6/uL Normal 3.95-5.11 [facility] Comment on above: Performed By: #### C DP, REJEC #### [facility] [address] [place] [address] Stock Puller: Ion Jasso MD WBC (Bld) [#/Vol] 9.3 10*3/uL Normal 3.5-11.3 [facility] Comment on above: Performed By: #### C DP, REJEC #### [facility] [address] [place] [address] Stock Puller: Ion Jasso MD CT ABDOMEN PELVIS W [...] Errol Tran MD 04/07/24 Final result Normal [facility] CT Abdomen and Pelvis Dennis Schmidt 04-07-2024 1. No acute intra-abdominal or pelvic abnormalities are noted. 2. Stable mild dilatation of the extrahepatic biliary tree and pancreatic duct. 3. Status post cholecystectomy. [facility] RIS CONSOLIDATED EXAMINATION: CT OF THE ABDOMEN [...] lytic or blastic osseous lesions are identified. [facility] RIS CONSOLIDATED Errol Tran MD - 04/07/2024 [...] and pancreatic duct. 3. Status post [facility]olecyst[facility]. [facility] Abdomen and Pelvis W cont rast IVOrdered By: Errol Tran on 04-07-2024 [facility] [email or web address] Work Phone: Hepatic Function Panelon Albumin [Mass/Vol] 3.9 g/dL 3.5 - 5.2 g/dL [facility] Albumin/Globulin [Mass ratio] 1.7 {ratio} 1.0 - 2.5 [facility] ALP [Catalytic activity/Vol] 119 U/L High 35 - 104 U/L [facility] ALT [Catalytic activity/Vol] 11 U/L 10 - 35 U/L [facility] AST [Catalytic activity/Vol] 30 U/L 10 - 35 U/L [facility] Bilirubin [Mass/Vol] mg/dL 0.00 - 1.20 mg/dL [facility] Bilirubin.direct [Mass/Vol] mg/dL 0.00 - 0.30 mg/dL [facility] Bilirubin.indirect [Mass/Vol] Can not be calculated 0.0 - 1.0 mg/dL [facility] Protein [Mass/Vol] 6.1 g/dL Low 6.6 - 8.7 g/dL [facility] Lipaseon 04-07-2024 Lipase [Catalytic activity/Vol] 266 U/L High 13 - 60 U/L [facility] Lipase [Catalytic activity/Vol] 266 U/L High 13-60 [facility] Comment on above: Performed By: #### M G, CDP, CP, LIP #### [address] [place], [place] [phone] Stock Puller: Ion Jasso MD Liver Profileon 04-07-2024 Albumin [Mass/Vol] 3.9 g/dL Normal 3.5-5.2 [facility] Comment on above: Performed By: #### M Jordana, CDP, CP, LIP #### [address] [place], [place] [phone] Stock Puller: Ion Jasso MD Albumin/Glob Ratio 1.7 Normal 1.0-2.5 [facility] Comment on above: Performed By: #### M Jordana, CDP, CP, LIP #### [address] [place], [place] [phone] Stock Puller: Ion Jasso MD Alkaline Phos 119 U/L High 35-104 [facility] Comment on above: Performed By: #### M G, CDP, CP, LIP #### [address] [place], [place] [phone] Stock Puller: Ion Jasso MD ALT [Catalytic activity/Vol] 11 U/L Normal 10-35 [facility] Comment on above: Performed By: #### M G, CDP, CP, LIP #### [address] [place] [address] Stock Puller: Ion Jasso MD AST [Catalytic activity/Vol] 30 U/L Normal 10-35 [facility] Comment on above: Performed By: #### M G, CDP, CP, LIP #### [facility] [address] [place], [place] 1676683 Stock Puller: Ion Jasso MD Bilirubin [Mass/Vol] mg/dL Normal 0.00-1.20 [facility] Comment on above: Performed By: #### M G, CDP, CP, LIP #### [facility] [address] [place], [place] [phone] Stock Puller: Ion Jasso MD Bilirubin, Indirect Can not be calculated Normal 0.0-1 .0 [facility] Comment on above: Performed By: #### M G, CDP, CP, LIP #### [address] [place], [place] [phone] Stock Puller: Ion Jasso MD Bilirubin.indirect [Mass/Vol] mg/dL Normal 0.00-0.30 [facility] Comment on above: Performed By: #### M G, CDP, CP, LIP #### [address] [place], [place] 1137083 Stock Puller: Ion Jasso MD Protein [Mass/Vol] 6.1 g/dL Low 6.6-8.7 [facility] Comment on above: Performed By: #### M G, CDP, CP, LIP #### [address] [place], [place] [phone] Stock Puller: Ion Jasso MD No Panel Informationon 04-07 Interpretation and review of laboratory results Abnormal [facility] Specimen Rejectionon 025 Reason for rejection Unable to perform testing: Specimen hemolyzed. Normal [facility] Comment on above: Performed By: #### C DP, REJEC #### [facility] [address] [place] [address] Dr. [place], [place] [phone] Stock Puller: Ion Jasso MD Source of sample .BLOOD Normal [facility] Comment on above: Performed By: #### C DP, REJEC #### [facility] [address] [place] [address] Stock Puller: Ion Jasso MD Test ordered LIP,LIVP, BMP Normal [facility] Comment on above: Performed By: #### C DP, REJEC #### [facility] [address] [place] [address] Stock Puller: Ion Jasso MD Urinalysison 04-07-2024 Bilirubin Ql (U) Negative NEGATIVE [facility] Clarity (U) Clear Clear [facility] Color (U) Yellow Yellow [facility] Glucose Test strip (U) [Mass/Vol] Negative NEGATIVE mg/dL [facility] Hemoglobin Auto test strip Ql (U) Negative NEGATIVE [facility] Ketones (U) [Mass/Vol] Negative NEGAT MATTHIAS mg/dL [facility] Leukocyte esterase Test strip Ql (U) Negative NEGATIVE [facility] Nitrite Ql (U) Negative NEGATIVE [facility] pH (U) 5.5 [pH] 5.0 - 9.0 [facility] Protein (U) [Mass/Vol] Negative NEGAT MATTHIAS mg/dL [facility] Specific gravity (U) [Rel density] 1.010 1.010 - 1.020 [facility] Urobilinogen Qn (U) Normal 0.0 - 1. 0 EU/dL [facility] Urinalysis, Routineon 2024 Bilirubin, SemiQt,Ur Negative Normal NEG [facility] Comment on above: Performed By: #### M WALTER Silveira, CP, LIP #### [facility] [address] [place] [address] Stock Puller: Ion Jasso MD Blood, Urine Negative Normal NEG [facility] Comment on above: Performed By: #### M Jordana, WALTER, CP, LIP #### [facility] [address] [place] [address] Dr. [place], [place] [phone] Stock Puller: Ion Jasso MD Clarity (U) Clear Normal CLEAR [facility] Comment on above: Performed By: #### M G, CDP, CP, LIP #### [address] [place], [place] [phone] Stock Puller: Ion Jasso MD Color (U) Yellow Normal YEL [facility] Comment on above: Performed By: #### M G, CDP, CP, LIP #### [facility] [address] [place] [address] Dr. [place], [place] [phone] Stock Puller: Ion Jasso MD Glucose Ql (U) Negative Normal NEG [facility] Comment on above: Performed By: #### M G, CDP, CP, LIP #### [address] [place], [place] 5634583 Stock Puller: Ion Jasso MD Ketones Ql (U) Negative Normal NEG [facility] Comment on above: Performed By: #### M G, CDP, CP, LIP #### [address] [place], [place] 6835583 Stock Puller: Ion Jasso MD Leukocyte esterase Test strip Ql (U) Negative Normal NEG [facility] Comment on above: Performed By: #### M G, CDP, CP, LIP #### [address] [place], [place] 6413983 Stock Puller: Ion Jasso MD Nitrite,Ur Negative Normal NEG [facility] Comment on above: Performed By: #### M G, CDP, CP, LIP #### [address] [place], [place] 0780783 Stock Puller: Ion Jasso MD PH,Ur 5.5 Normal 5.0-9.0 [facility] Comment on above: Performed By: #### M G, CDP, CP, LIP #### [facility] [address] [place] [address] Dr. [place], [place] [phone] Stock Puller: Ion Jasso MD Protein Ql (U) Negative Normal NEG [facility] Comment on above: Performed By: #### M G, CDP, CP, LIP #### [facility] [address] [place], [place] 2777083 Stock Puller: Ion Jasso MD Spec. [place],Ur 1.010 Normal 1.010-1.02 0 [facility] Comment on above: Performed By: #### Dayday G, CDP, CP, LIP #### [facility] [address] [place], [place] 624[address]3 Stock Puller: Ion Jasso MD Urobilinogen,Ur Normal Normal 0.0-1.0 [facility] Comment on above: Performed By: #### Dayday Silveira, CDP, CP, LIP #### [facility] [address] [place], [place] 2927683 Stock Puller: Ion Jasso MD CBC AND AUTO DIFFon 03-18-19 25 ABSOLUTE BASOPHIL 0.1 X10E9/L Normal 0.0-0.2 [facility] Comment on above: Performed By: #### C EZEQUIEL, BMP, 16775-8, LIVR, 37208-7, 28879-7, 5643-2, 3040-3 #### [facility] ([id number]) [address] [place] [address]90 ABSOLUTE NEUTROPHIL 7.7 X10E9/L High 1.5-6.6 [facility] Comment on above: Performed By: #### C BCA, BMP, 57683-0, LIVR, 94553-2, 24228-5, 5643-2, 3040-3 #### [facility] ([id number]) [address] [place] [address] Basophils/100 WBC (Bld) 0.8 % Normal [facility] Comment on above: Performed By: #### C BCA, BMP, 27125-3, LIVR, 08918-8, 81449-7, 5643-2, 3040-3 #### [facility] ([id number]) [address] [place] [address] 53324 Eosinophils (Bld) [#/Vol] 0.1 10*3/uL Normal 0.0-0.4 [facility] Comment on above: Performed By: #### C BCA, BMP, 21021-0, LIVR, 05125-8, 55629-4, 5643-2, 3040-3 #### [facility] ([id number]) [address] [place] [address] 33420 Eosinophils/100 WBC (Bld) 0.5 % Normal [facility] Comment on above: Performed By: #### C BCA, BMP, 02838-1, LIVR, 50314-5, 06841-4, 5643-2, 3040-3 #### [facility] ([id number]) [address] [place] [address] 28571 Erythrocyte distribution width (RBC) [Ratio] 13.5 % Normal 11.5-15.0 [facility] Comment on above: Performed By: #### C BCA, BMP, 25031-0, LIVR, 71255-3, 54344-4, 5643-2, 3040-3 #### [facility] ([id number]) [address] [place] [address] 69586 Hematocrit (Bld) [Volume fraction] 48.7 % High 35-47 [facility] Comment on above: Performed By: #### C BCA, BMP, 74587-2, LIVR, 20604-7, 01407-7, 5643-2, 3040-3 #### [facility] ([id number]) [address] [place] [address] 35500 Hemoglobin (Bld) [Mass/Vol] 16.5 g/dL High 11.7-15.5 [facility] Comment on above: Performed By: #### C BCA, BMP, 83477-0, LIVR, 34545-7, 42730-9, 5643-2, 3040-3 #### [facility] ([id number]) [address] [place] [address] 34498 Lymphocytes (Bld) [#/Vol] 2.0 10*3/uL Normal 1.0-3.5 [facility] Comment on above: Performed By: #### C BCA, BMP, 21710-9, LIVR, 21646-0, 90876-7, 5643-2, 3040-3 #### [facility] ([id number]) [address] [place] [address] 93431 Lymphocytes/100 WBC (Bld) 19.0 % Normal [facility] Comment on above: Performed By: #### C BCA, BMP, 07680-9, LIVR, 82417-1, 47083-7, 5643-2, 3040-3 #### [facility] ([id number]) [address] [place] [address] 59765 MCH (RBC) [Entitic mass] 33.5 pg Normal 27-34 [facility] Comment on above: Performed By: #### C BCA, BMP, 52170-6, LIVR, 90482-2, 13086-1, 5643-2, 3040-3 #### [facility] ([id number]) [address] [place] [address] 47940 MCHC (RBC) [Mass/Vol] 33.9 g/dL Normal 32-36 [facility] Comment on above: Performed By: #### C BCA, BMP, 07002-3, LIVR, 54146-9, 37602-4, 5643-2, 3040-3 #### [facility] ([id number]) [address] [place] [address] 40045 MCV (RBC) [Entitic vol] 99 fL Normal 80-100 [facility] Comment on above: Performed By: #### C BCA, BMP, 82017-1, LIVR, 30583-7, 38788-6, 5643-2, 3040-3 #### [facility] ([id number]) [address] [place] [address] 05012 Monocytes (Bld) [#/Vol] 0.8 10*3/uL Normal 0-0.9 [facility] Comment on above: Performed By: #### C BCA, BMP, 29830-4, LIVR, 87246-4, 05397-3, 5643-2, 3040-3 #### [facility] ([id number]) [address] [place] [address] 25810 Monocytes/100 WBC (Bld) 7.4 % Normal [facility] Comment on above: Performed By: #### C BCA, BMP, 99235-4, LIVR, 44449-3, 90713-6, 5643-2, 3040-3 #### [facility] ([id number]) [address] [place] [address] 55138 Neutrophils/100 WBC (Bld) 72.3 % Normal [facility] Comment on above: Performed By: #### C BCA, BMP, 30820-9, LIVR, 68683-8, 44728-6, 5643-2, 3040-3 #### [facility] ([id number]) [address] [place] [address] 89430 Platelet mean volume (Bld) [Entitic vol] 8.1 fL Normal 7-12 [facility] Comment on above: Performed By: #### C BCA, BMP, 32230-0, LIVR, 92214-6, 78809-4, 5643-2, 3040-3 #### [facility] ([id number]) [address] [place] [address] 64010 Platelets (Bld) [#/Vol] 304 10*3/uL Normal 150-450 [facility] Comment on above: Performed By: #### C BCA, BMP, 43328-2, LIVR, 19886-8, 84899-9, 5643-2, 3040-3 #### [facility] ([id number]) [address] [place] [address] 21430 RBC COUNT 4.92 X10E12/L Normal 3.80-5.20 [facility] Comment on above: Performed By: #### C BCA, BMP, 05080-3, LIVR, 53112-3, 58695-9, 5643-2, 3040-3 #### [facility] ([id number]) [address] [place] [address] 14925 WBC (Bld) [#/Vol] 10.7 10*3/uL Normal 4.0-11.0 [facility] Comment on above: Performed By: #### C BCA, BMP, 93069-9, LIVR, 08800-4, 42853-5, 5643-2, 3040-3 #### [facility] ([id number]) [address] [place] [address] 76592 COMPREHENSIVE METABOLIC PANE Nimesh 03-18-2024 Albumin [Mass/Vol] 4.7 g/dL Normal 3.2-5.3 [facility] Comment on above: Performed By: #### C BCA, BMP, 44224-1, LIVR, 70929-6, 14883-2, 5643-2, 3040-3 #### [facility] ([id number]) [address] [place] [address] 60848 ALP [Catalytic activity/Vol] 153 U/L High 39-130 [facility] Comment on above: Performed By: #### C BCA, BMP, 46420-0, LIVR, 61967-4, 93720-2, 5643-2, 3040-3 #### [facility] ([id number]) [address] [place] [address] 02191 ALT [Catalytic activity/Vol] 18 U/L Normal 0-31 [facility] Comment on above: Performed By: #### C BCA, BMP, 28898-2, LIVR, 52320-9, 08939-8, 5643-2, 3040-3 #### [facility] ([id number]) [address] [place] [address] 65390 Anion gap [Moles/Vol] 9 mmol/L Normal 5-15 [facility] Comment on above: Performed By: #### C BCA, BMP, 41374-4, LIVR, 67246-4, 80611-0, 5643-2, 3040-3 #### [facility] ([id number]) [address] [place] [address] 58928 AST [Catalytic activity/Vol] 26 U/L Normal 0-41 [facility] Comment on above: Performed By: #### C BCA, BMP, 41693-4, LIVR, 64225-6, 32827-0, 5643-2, 3040-3 #### [facility] ([id number]) [address] [place] [address] 09995 Bilirubin [Mass/Vol] 0.8 mg/dL Normal 0.3-1.2 [facility] Comment on above: Performed By: #### C BCA, BMP, 79476-3, LIVR, 20014-5, 60277-1, 5643-2, 3040-3 #### [facility] ([id number]) [address] [place] [address] 62235 Calcium [Mass/Vol] 10.9 mg/dL High 8.5-10.5 [facility] Comment on above: Performed By: #### C BCA, BMP, 42344-8, LIVR, 66665-4, 96200-3, 5643-2, 3040-3 #### [facility] ([id number]) [address] [place] [address] 50370 Chloride [Moles/Vol] 104 mmol/L Normal 98-109 [facility] Comment on above: Performed By: #### C BCA, BMP, 53264-1, LIVR, 94210-5, 34562-6, 5643-2, 3040-3 #### [facility] ([id number]) [address] [place] [address] 54284 CO2 [Moles/Vol] 27 mmol/L Normal 22-32 [facility] Comment on above: Performed By: #### C BCA, BMP, 92604-4, LIVR, 62369-1, 74239-6, 5643-2, 3040-3 #### [facility] ([id number]) [address] [place] [address] 66728 Creatinine [Mass/Vol] 0.78 mg/dL Normal 0.40-1.00 [facility] Comment on above: Result Comment: METH OD TRACEABLE TO IDMS STANDARD Performed By: #### C BCA, BMP, 90717-8, LIVR, 93989-4, 80614-3, 5643-2, 3040-3 #### [facility] ([id number]) [address] [place] [address] 46447 eGFR (CKD-EPI) NON-RACE DEPENDENT >90 Normal >59 [facility] Comment on above: Result Comment: Reported eGFR is based on the CKD-EPI 2020 equation that does not use a race coefficient. Performed By: #### C BCA, BMP, 26874-0, LIVR, 48757-6, 85091-5, 5643-2, 3040-3 #### [facility] ([id number]) [address] [place] [address] 22016 Glucose [Mass/Vol] 103 mg/dL High 65-99 [facility] Comment on above: Performed By: #### C BCA, BMP, 33113-8, LIVR, 71830-4, 25263-5, 5643-2, 3040-3 #### [facility] ([id number]) [address] [place] [address] 82039 Potassium [Moles/Vol] 4.5 mmol/L Normal 3.5-5.0 [facility] Comment on above: Performed By: #### C BCA, BMP, 63238-7, LIVR, 28608-5, 16749-6, 5643-2, 3040-3 #### [facility] ([id number]) [address] [place] [address] 05325 Protein [Mass/Vol] 8.2 g/dL High 6.0-8.0 [facility] Comment on above: Performed By: #### C BCA, BMP, 41949-1, LIVR, 27302-7, 29388-5, 5643-2, 3040-3 #### [facility] ([id number]) [address] [place] [address] 40014 Sodium [Moles/Vol] 140 mmol/L Normal 134-146 [facility] Comment on above: Performed By: #### C BCA, BMP, 76085-7, LIVR, 95528-2, 02845-7, 5643-2, 3040-3 #### [facility] ([id number]) [address] [place] [address] 55623 Urea nitrogen [Mass/Vol] 11 mg/dL Normal 5-23 [facility] Comment on above: Performed By: #### C BCA, BMP, 73543-0, LIVR, 92462-5, 58659-0, 5643-2, 3040-3 #### [facility] ([id number]) [address] [place] [address] ABDOMEN AND PELVIS W CONT on [...] Cano MD on 03/18/2024 3:38 PM Normal [facility] LIPASEon 03-18-2024 Lipase [Catalytic activity/Vol] 73 U/L High 17-40 [facility] Comment on above: Performed By: #### C EZEQUIEL, BMP, 14108-4, LIVR, 37830-1, 40537-4, 5643-2, 3040-3 #### [facility] ([id number]) [address] [address], [place] [address] UPPER EUSon 01-19-2024 [facility] Patient Name: Chioma Rainey Procedure Date: 01/19/2024 9:15 AM Date of : 1970 Admit Type: Outpatient Age: 53 Room: EUS Proc Room 01 Gender: Female Note Status: Finalized Attending MD: Sabrina Dee MD, MPH, [id number] Procedure: Upper EUS Indications: Celiac plexus block for pain secondary to chronic pancreatitis Providers: Sabrina Dee MD, MPH (Doctor), Daniel Christiansen MD (Fellow), Love Zeng, RN (Nurse), Lotus Rudd, RN (Nurse), LOW Emanuel (Anesthesia Staff) Patient [...] o (more content not included)... LAB, [facility] Radiology Study observation (narrative) [facility] CBC AND AUTO DIFFon 01-14-20 24 ABSOLUTE BASOPHIL 0.1 X10E9/L Normal 0.0-0.2 [facility] Comment on above: Performed By: #### C BCA, BMP, 10660-1, LIVR, 37287-7, 98718-5, 5643-2, 3040-3 #### [facility] ([id number]) [address] [place] [address] 61510 ABSOLUTE NEUTROPHIL 6.8 X10E9/L High 1.5-6.6 [facility] Comment on above: Performed By: #### C BCA, BMP, 93897-7, LIVR, 44006-1, 49449-5, 5643-2, 3040-3 #### [facility] ([id number]) [address] [place] [address] 13287 Basophils/100 WBC (Bld) 0.8 % Normal [facility] Comment on above: Performed By: #### C BCA, BMP, 29078-0, LIVR, 58052-7, 89624-5, 5643-2, 3040-3 #### [facility] ([id number]) [address] [place] [address] 84259 Eosinophils (Bld) [#/Vol] 0.1 10*3/uL Normal 0.0-0.4 [facility] Comment on above: Performed By: #### C BCA, BMP, 26888-0, LIVR, 04217-9, 23413-9, 5643-2, 3040-3 #### [facility] ([id number]) [address] [place] [address] 85504 Eosinophils/100 WBC (Bld) 1.2 % Normal [facility] Comment on above: Performed By: #### C BCA, BMP, 52396-3, LIVR, 93428-3, 07725-5, 5643-2, 3040-3 #### [facility] ([id number]) [address] [place] [address] 70885 Erythrocyte distribution width (RBC) [Ratio] 12.9 % Normal 11.5-15.0 [facility] Comment on above: Performed By: #### C BCA, BMP, 32452-5, LIVR, 04607-3, 49850-8, 5643-2, 3040-3 #### [facility] ([id number]) [address] [place] [address] 60878 Hematocrit (Bld) [Volume fraction] 42.2 % Normal 35-47 [facility] Comment on above: Performed By: #### C BCA, BMP, 07277-0, LIVR, 61838-8, 72709-9, 5643-2, 3040-3 #### [facility] ([id number]) [address] [place] [address] 62436 Hemoglobin (Bld) [Mass/Vol] 14.5 g/dL Normal 11.7-15.5 [facility] Comment on above: Performed By: #### C BCA, BMP, 44753-5, LIVR, 25010-4, 92216-3, 5643-2, 3040-3 #### [facility] ([id number]) [address] [place] [address] 64812 Lymphocytes (Bld) [#/Vol] 2.8 10*3/uL Normal 1.0-3.5 [facility] Comment on above: Performed By: #### C BCA, BMP, 08365-3, LIVR, 32483-3, 81417-4, 5643-2, 3040-3 #### [facility] ([id number]) [address] [place] [address] 10983 Lymphocytes/100 WBC (Bld) 26.2 % Normal [facility] Comment on above: Performed By: #### C BCA, BMP, 30796-9, LIVR, 47542-5, 97826-2, 5643-2, 3040-3 #### [facility] ([id number]) [address] [place] [address] 02608 MCH (RBC) [Entitic mass] 33.8 pg Normal 27-34 [facility] Comment on above: Performed By: #### C BCA, BMP, 41161-9, LIVR, 98295-5, 04203-3, 5643-2, 3040-3 #### [facility] ([id number]) [address] [place] [address] 10614 MCHC (RBC) [Mass/Vol] 34.3 g/dL Normal 32-36 [facility] Comment on above: Performed By: #### C BCA, BMP, 05818-8, LIVR, 99633-3, 02354-7, 5643-2, 3040-3 #### [facility] ([id number]) [address] [place] [address] 75252 MCV (RBC) [Entitic vol] 98 fL Normal 80-100 [facility] Comment on above: Performed By: #### C BCA, BMP, 82168-0, LIVR, 52524-7, 70248-9, 5643-2, 3040-3 #### [facility] ([id number]) [address] [place] [address] 82102 Monocytes (Bld) [#/Vol] 0.9 10*3/uL Normal 0-0.9 [facility] Comment on above: Performed By: #### C BCA, BMP, 06225-4, LIVR, 69570-1, 80967-9, 5643-2, 3040-3 #### [facility] ([id number]) [address] [place] [address] 10135 Monocytes/100 WBC (Bld) 8.2 % Normal [facility] Comment on above: Performed By: #### C BCA, BMP, 51424-8, LIVR, 79348-0, 77689-8, 5643-2, 3040-3 #### [facility] ([id number]) [address] [place] [address] 20824 Neutrophils/100 WBC (Bld) 63.6 % Normal [facility] Comment on above: Performed By: #### C BCA, BMP, 66474-3, LIVR, 53456-4, 72305-7, 5643-2, 3040-3 #### [facility] ([id number]) [address] [place] [address] 26000 Platelet mean volume (Bld) [Entitic vol] 8.2 fL Normal 7-12 [facility] Comment on above: Performed By: #### C BCA, BMP, 25601-5, LIVR, 25541-8, 50822-3, 5643-2, 3040-3 #### [facility] ([id number]) [address] [place] [address] 83716 Platelets (Bld) [#/Vol] 259 10*3/uL Normal 150-450 [facility] Comment on above: Performed By: #### C BCA, BMP, 19976-8, LIVR, 54510-8, 82396-3, 5643-2, 3040-3 #### [facility] ([id number]) [address] [place] [address] 94943 RBC COUNT 4.29 X10E12/L Normal 3.80-5.20 [facility] Comment on above: Performed By: #### C BCA, BMP, 84574-9, LIVR, 22974-3, 94470-3, 5643-2, 3040-3 #### [facility] ([id number]) [address] [place] [address] 33338 WBC (Bld) [#/Vol] 10.7 10*3/uL Normal 4.0-11.0 [facility] Comment on above: Performed By: #### C BCA, BMP, 50627-9, LIVR, 48784-0, 89600-7, 5643-2, 3040-3 #### [facility] ([id number]) [address] [place] [address] 94259 COMPREHENSIVE METABOLIC PANE Nimesh 01-14-2024 Albumin [Mass/Vol] 4.2 g/dL Normal 3.2-5.3 [facility] Comment on above: Performed By: #### C BCA, BMP, 30734-1, LIVR, 08923-1, 32477-4, 5643-2, 3040-3 #### [facility] ([id number]) [address] [place] [address] 73212 ALP [Catalytic activity/Vol] 136 U/L High 39-130 [facility] Comment on above: Performed By: #### C BCA, BMP, 68399-0, LIVR, 55706-2, 06504-9, 5643-2, 3040-3 #### [facility] ([id number]) [address] [place] [address], [place] [address] ALT [Catalytic activity/Vol] 18 U/L Normal 0-31 [facility] Comment on above: Performed By: #### C BCA, BMP, 81368-2, LIVR, 07155-6, 64261-7, 5643-2, 3040-3 #### [facility] ([id number]) [address] [place] [address] 77130 Anion gap [Moles/Vol] 10 mmol/L Normal 5-15 [facility] Comment on above: Performed By: #### C BCA, BMP, 50895-7, LIVR, 82671-6, 09411-6, 5643-2, 3040-3 #### [facility] ([id number]) [address] [place] [address] 58362 AST [Catalytic activity/Vol] 21 U/L Normal 0-41 [facility] Comment on above: Performed By: #### C BCA, BMP, 28750-3, LIVR, 38203-9, 46246-3, 5643-2, 3040-3 #### [facility] ([id number]) [address] [place] [address] 79121 Bilirubin [Mass/Vol] 0.5 mg/dL Normal 0.3-1.2 [facility] Comment on above: Performed By: #### C BCA, BMP, 26429-0, LIVR, 27616-2, 89892-7, 5643-2, 3040-3 #### [facility] ([id number]) [address] [place] [address] 02083 Calcium [Mass/Vol] 9.6 mg/dL Normal 8.5-10.5 [facility] Comment on above: Performed By: #### C BCA, BMP, 83664-0, LIVR, 39003-5, 05120-2, 5643-2, 3040-3 #### [facility] ([id number]) [address] [place] [address] 25774 Chloride [Moles/Vol] 105 mmol/L Normal 98-109 [facility] Comment on above: Performed By: #### C BCA, BMP, 50641-1, LIVR, 90315-2, 09882-6, 5643-2, 3040-3 #### [facility] ([id number]) [address] [place] [address] 18717 CO2 [Moles/Vol] 22 mmol/L Normal 22-32 [facility] Comment on above: Performed By: #### C BCA, BMP, 26314-9, LIVR, 99111-5, 50955-5, 5643-2, 3040-3 #### [facility] ([id number]) [address] [place] [address] 11415 Creatinine [Mass/Vol] 0.74 mg/dL Normal 0.40-1.00 [facility] Comment on above: Result Comment: METH OD TRACEABLE TO IDMS STANDARD Performed By: #### C BCA, BMP, 82241-6, LIVR, 87006-3, 59456-7, 5643-2, 3040-3 #### [facility] ([id number]) [address] [place] [address] 22730 eGFR (CKD-EPI) NON-RACE DEPENDENT >90 Normal >59 [facility] Comment on above: Result Comment: Reported eGFR is based on the CKD-EPI 2020 equation that does not use a race coefficient. Performed By: #### C BCA, BMP, 21912-4, LIVR, 18935-9, 32329-7, 5643-2, 3040-3 #### [facility] ([id number]) [address] [place] [address] 84573 Glucose [Mass/Vol] 93 mg/dL Normal 65-99 [facility] Comment on above: Performed By: #### C BCA, BMP, 03870-2, LIVR, 37574-1, 92936-1, 5643-2, 3040-3 #### [facility] ([id number]) [address] [place] [address] 61825 Potassium [Moles/Vol] 3.6 mmol/L Normal 3.5-5.0 [facility] Comment on above: Performed By: #### C BCA, BMP, 36148-3, LIVR, 83484-7, 51412-7, 5643-2, 3040-3 #### [facility] ([id number]) [address] [place] [address] 39130 Protein [Mass/Vol] 7.3 g/dL Normal 6.0-8.0 [facility] Comment on above: Performed By: #### C BCA, BMP, 58427-9, LIVR, 03076-0, 04320-8, 5643-2, 3040-3 #### [facility] ([id number]) [address] [place] [address] 01932 Sodium [Moles/Vol] 137 mmol/L Normal 134-146 [facility] Comment on above: Performed By: #### C BCA, BMP, 59690-5, LIVR, 53318-5, 82668-7, 5643-2, 3040-3 #### [facility] ([id number]) [address] [place] [address] 45248 Urea nitrogen [Mass/Vol] 7 mg/dL Normal 5-23 [facility] Comment on above: Performed By: #### C BCA, BMP, 11573-6, LIVR, 00148-1, 67831-2, 5643-2, 3040-3 #### [facility] ([id number]) [address] [place] [address] ABDOMEN AND PELVIS W CONT on [...] Rodgers MD on 01/14/2024 5:01 PM Normal [facility] LIPASEon 01-14-2024 Lipase [Catalytic activity/Vol] 72 U/L High 17-40 [facility] Comment on above: Performed By: #### C FRANNIE NIEVES, 72459-2, LIVR, 75648-2, 60268-4, 5643-2, 3040-3 #### [facility] ([id number]) [address] [place] [address] 53032 MAGNESIUMon 01-14-2024 Magnesium [Mass/Vol] 2.2 mg/dL Normal 1.8-2.6 [facility] Comment on above: Performed By: #### C FRANNIE NIEVES, 96320-6, LIVR, 24580-4, 34239-5, 5643-2, 3040-3 #### [facility] ([id number]) [address] [place] [address] 88194 URN MACROSCOPIC NURon 2023 BILIRUBIN JERE Negative Normal NEG [facility] Comment on above: Performed By: #### C BCA, BMP, 62369-6, LIVR, 33751-1, 76060-6, 5643-2, 3040-3 #### [facility] ([id number]) [address] [place] [address] 85367 BLOOD/HGB JERE Negative Normal NEG [facility] Comment on above: Performed By: #### C BCA, BMP, 46595-0, LIVR, 29055-6, 47911-8, 5643-2, 3040-3 #### [facility] ([id number]) [address] [place] [address] 76451 GLUCOSE JERE Negative Normal NEG [facility] Comment on above: Performed By: #### C BCA, BMP, 05430-8, LIVR, 75097-5, 57651-3, 5643-2, 3040-3 #### [facility] ([id number]) [address] [place] [address] [place] [address] KETONES JERE Negative Normal NEG [facility] Comment on above: Performed By: #### C BCA, BMP, 07383-4, LIVR, 69403-7, 64971-6, 5643-2, 3040-3 #### [facility] ([id number]) [address] [place] [address] 51086 LEUKOCYTE ESTERASE JERE Negative Normal NEG [facility] Comment on above: Performed By: #### C BCA, BMP, 83697-9, LIVR, 47972-0, 85440-2, 5643-2, 3040-3 #### [facility] ([id number]) [address] [place] [address] 64375 NITRITE JERE Negative Normal NEG [facility] Comment on above: Performed By: #### C BCA, BMP, 75895-7, LIVR, 52536-1, 32731-8, 5643-2, 3040-3 #### [facility] ([id number]) [address] [place] [address] 20528 PH JERE 5.5 Normal 5.0-8.5 [facility] Comment on above: Performed By: #### C BCA, BMP, 05082-9, LIVR, 56881-5, 03133-1, 5643-2, 3040-3 #### [facility] ([id number]) [address] [place] [address] 81386 PROTEIN JERE Negative Normal NEG [facility] Comment on above: Performed By: #### C BCA, BMP, 17192-3, LIVR, 11629-6, 58343-7, 5643-2, 3040-3 #### [facility] ([id number]) [address] [place] [address] 93575 SPECIFIC GRAVITY JERE >=1.030 Normal 1.003-1 .03 5 [facility] Comment on above: Performed By: #### C BCA, BMP, 57270-5, LIVR, 57074-6, 81016-5, 5643-2, 3040-3 #### [facility] ([id number]) [address] [place] [address] 32751 UROBILINOGEN JERE 0.2 eu/dL Normal <1.1 [facility] Comment on above: Performed By: #### C BCA, BMP, 31235-4, LIVR, 52111-7, 12967-6, 5643-2, 3040-3 #### [facility] ([id number]) [address] [place] [address] 07578 CBC with Auto Differentialon 01-07-2024 Basophils (Bld) [#/Vol] 0.09 10*3/uL [facility] Basophils/100 WBC (Bld) 1 % 0 - 2 % [facility] Eosinophils (Bld) [#/Vol] 0.10 10*3/uL [facility] Eosinophils/100 WBC (Bld) 1 % 1 - 4 % [facility] Erythrocyte distribution width (RBC) [Ratio] 12.2 % 11.8 - 14.4 % [facility] Hematocrit (Bld) [Volume fraction] 46.3 % 36.3 - 47.1 % [facility] Hemoglobin (Bld) [Mass/Vol] 15.9 g/dL High 11.9 - 15.1 g/dL [facility] Immature granulocytes (Bld) [#/Vol] [facility] Immature granulocytes/100 WBC (Bld) 0 % 0 [facility] Interpretation and review of laboratory results Abnormal [facility] Lymphocytes/100 WBC (Bld) 28 % 24 - 43 % [facility] Lymphocytes/100 WBC (Bld) 2.73 % [facility] MCH (RBC) [Entitic mass] 33.8 pg High 25.2 - 33.5 pg [facility] MCHC (RBC) [Mass/Vol] 34.3 g/dL 28.4 - 34.8 g/dL [facility] MCV (RBC) [Entitic vol] 98.3 fL 82.6 - 102.9 fL [facility] Monocytes/100 WBC (Bld) 9 % 3 - 12 % [facility] Monocytes/100 WBC (Bld) 0.88 % [facility] Neutrophils/100 WBC (Bld) 61 % 36 - 65 % [facility] Nucleated RBC/100 WBC (Bld) [Ratio] 0.0 % 0.0 per 100 WBC [facility] Platelet mean volume (Bld) [Entitic vol] 9.7 fL 8.1 - 13.5 fL [facility] Platelets (Bld) [#/Vol] 277 10*3/uL [facility] RBC (Bld) [#/Vol] 4.71 10*6/uL 3.95 - 5.11 m/uL [facility] Segmented neutrophils/100 WBC (Bld) 6.06 % [facility] WBC other (Bld) [#/Vol] 9.9 [facility] CBC with Diffon 01-07-2024 Abs. Basophil 0.09 k/uL Normal 0.00-0.20 [facility] Comment on above: Performed By: #### M G, CDP, CP, LIP #### [address] [place], [place] [id number] Stock Puller: Ion Jasso MD Abs.Imm.Granulocyte <0.03 Normal 0.00-0.30 [facility] Comment on above: Performed By: #### M G, CDP, CP, LIP #### [address] [place], [place] [address] Stock Puller: Ion Jasso MD Abs.Neutrophil (Seg) 6.06 k/uL Normal 1.50-8.10 [facility] Comment on above: Performed By: #### M G, CDP, CP, LIP #### [address] [place], [facility] Stock Puller: Ion Jasso MD Basophils/100 WBC (Bld) 1 % Normal 0-2 [facility] Comment on above: Performed By: #### M G, CDP, CP, LIP #### [address] [place], [facility] Stock Puller: Ion Jasso MD Eosinophils (Bld) [#/Vol] 0.10 10*3/uL Normal 0.00-0.44 [facility] Comment on above: Performed By: #### M G, CDP, CP, LIP #### [address] [place], [facility] Stock Puller: Ion Jasso MD Eosinophils/100 WBC (Bld) 1 % Normal 1-4 [facility] Comment on above: Performed By: #### M G, CDP, CP, LIP #### [address] [place], [facility] Stock Puller: Ion Jasso MD Erythrocyte distribution width (RBC) [Ratio] 12.2 % Normal 11.8-14.4 [facility] Comment on above: Performed By: #### M G, CDP, CP, LIP #### [facility] [address] [place], [place] [id number] Stock Puller: Ion Jasso MD Hematocrit (Bld) [Volume fraction] 46.3 % Normal 36.3-47.1 [facility] Comment on above: Performed By: #### M G, CDP, CP, LIP #### [facility] [address] [place], [place] [phone] Stock Puller: Ion Jasso MD Hemoglobin (Bld) [Mass/Vol] 15.9 g/dL High 11.9-15.1 [facility] Comment on above: Performed By: #### M G, CDP, CP, LIP #### [address] [place], [place] [phone] Stock Puller: Ion Jasso MD Immature granulocytes/100 WBC (Bld) 0 % Normal 0 [facility] Comment on above: Performed By: #### M G, CDP, CP, LIP #### [address] [place], [place] [id number] Stock Puller: Ion Jasso MD Lymphocytes (Bld) [#/Vol] 2.73 10*3/uL Normal 1.10-3.70 [facility] Comment on above: Performed By: #### M G, CDP, CP, LIP #### [facility] [address] [place], [place] [id number] Stock Puller: Ion Jasso MD Lymphocytes/100 WBC (Bld) 28 % Normal 24-43 [facility] Comment on above: Performed By: #### M G, CDP, CP, LIP #### [facility] [address] [place] [address] Stock Puller: Ion Jasso MD MCH (RBC) [Entitic mass] 33.8 pg High 25.2-33.5 [facility] Comment on above: Performed By: #### M Jordana, CDP, CP, LIP #### [address] [place] [address] Stock Puller: Ion Jasso MD MCHC (RBC) [Mass/Vol] 34.3 g/dL Normal 28.4-34.8 [facility] Comment on above: Performed By: #### M G, CDP, CP, LIP #### [address] [place], [facility]83 Stock Puller: Ion Jasso MD MCV (RBC) [Entitic vol] 98.3 fL Normal 82.6-102.9 [facility] Comment on above: Performed By: #### M Jordana, CDP, CP, LIP #### [address] [place], [facility]83 Stock Puller: Ion Jasso MD Monocytes (Bld) [#/Vol] 0.88 10*3/uL Normal 0.10-1.20 [facility] Comment on above: Performed By: #### Dayday Silveira, CDP, CP, LIP #### [address] [place], [place] [id number] Stock Puller: Ion Jasso MD Monocytes/100 WBC (Bld) 9 % Normal 3-12 [facility] Comment on above: Performed By: #### M Jordana, CDP, CP, LIP #### [address] [place], [place] [phone] Stock Puller: Ion Jasso MD Neutrophil (Seg) 61 % Normal 36-65 [facility] Comment on above: Performed By: #### M Jordana, CDP, CP, LIP #### [address] [place], [place] [id number] Stock Puller: Ion Jasso MD NRBC Automated 0.0 per 100 WBC Normal 0.0 [facility] Comment on above: Performed By: #### M G, CDP, CP, LIP #### [facility] [address] [place], [place] [id number] Stock Puller: Ion Jasso MD Platelet mean volume (Bld) [Entitic vol] 9.7 fL Normal 8.1-13.5 [facility] Comment on above: Performed By: #### M G, CDP, CP, LIP #### [address] [place], [facility]83 Stock Puller: Ion Jasso MD Platelets (Bld) [#/Vol] 277 10*3/uL Normal 138-453 [facility] Comment on above: Performed By: #### M G, CDP, CP, LIP #### [address] [place], [place] [id number] Stock Puller: Ion Jasso MD RBC (Bld) [#/Vol] 4.71 10*6/uL Normal 3.95-5.11 [facility] Comment on above: Performed By: #### M G, CDP, CP, LIP #### [address] [place], [place] [id number] Stock Puller: Ion Jasso MD WBC (Bld) [#/Vol] 9.9 10*3/uL Normal 3.5-11.3 [facility] Comment on above: Performed By: #### M G, CDP, CP, LIP #### [address] [place], [facility]83 Stock Puller: Ion Jasso MD Comp Metabolic Profon 2023 Albumin [Mass/Vol] 4.3 g/dL Normal 3.5-5.2 [facility] Comment on above: Performed By: #### M G, CDP, CP, LIP #### [address] [place], [place] [id number] Stock Puller: Ion Jasso MD Albumin/Glob Ratio 1.6 Normal 1.0-2.5 [facility] Comment on above: Performed By: #### M G, CDP, CP, LIP #### [facility] [address] [place], [place] [id number] Stock Puller: Ion Jasso MD Alkaline Phos 145 U/L High 35-104 [facility] Comment on above: Performed By: #### M G, CDP, CP, LIP #### [facility] [address] [place], [place] [id number] Stock Puller: Ion Jasso MD ALT [Catalytic activity/Vol] 11 U/L Normal 10-35 [facility] Comment on above: Performed By: #### M G, CDP, CP, LIP #### [facility] [address] [place], [place] [id number] Stock Puller: Ion Jasso MD Anion gap [Moles/Vol] 12 mmol/L Normal 9-16 [facility] Comment on above: Performed By: #### M G, CDP, CP, LIP #### [address] [place], [place] [id number] Stock Puller: Ion Jasso MD AST [Catalytic activity/Vol] 25 U/L Normal 10-35 [facility] Comment on above: Result Comment: Spec imen hemolysis has exceeded the interference as defined by Joycelyn. Value may be falsely increased. Suggest recollection if clinically indicated. Performed By: #### M G, CDP, CP, LIP #### [facility] [address] [place], [place] [id number] Stock Puller: Ion Jasso MD Bilirubin [Mass/Vol] mg/dL Normal 0.00-1.20 [facility] Comment on above: Performed By: #### M G, CDP, CP, LIP #### [facility] 45 [address] [place], [place] [id number] Stock Puller: Ion Jasso MD BUN/CRE Ratio 9 Normal 9-20 [facility] Comment on above: Performed By: #### M G, CDP, CP, LIP #### [facility] [address] [place], [place] [id number] Stock Puller: Ion Jasso MD Calcium [Mass/Vol] 9.8 mg/dL Normal 8.6-10.4 [facility] Comment on above: Performed By: #### M G, CDP, CP, LIP #### [facility] [address] [place], [place] [id number] Stock Puller: Ion Jasso MD Chloride [Moles/Vol] 103 mmol/L Normal 98-107 [facility] Comment on above: Performed By: #### M G, CDP, CP, LIP #### [facility] [address] [place], [place] [id number] Stock Puller: Ion Jasso MD CO2 [Moles/Vol] 22 mmol/L Normal 20-31 [facility] Comment on above: Performed By: #### M G, CDP, CP, LIP #### [facility] [address] [place], [place] [id number] Stock Puller: Ion Jasso MD Creatinine [Mass/Vol] 0.8 mg/dL Normal 0.50-0.90 [facility] Comment on above: Performed By: #### M G, CDP, CP, LIP #### [facility] [address] [place], [place] [phone] Stock Puller: Ion Jasso MD GFR/1.73 sq M.predicted among non-blacks MDRD (S/P/Bld) [Vol rate/Area] mL/min/{1.73_m2} Normal >60 [facility] Comment on above: Result Comment: These [...] affects renal tubular secretion. Performed By: #### M G, CDP, CP, LIP #### [facility] [address] [place] [address] Stock Puller: Ion Jasso MD Glucose [Mass/Vol] 96 mg/dL Normal 74-99 [facility] Comment on above: Performed By: #### M G, CDP, CP, LIP #### [address] [place], [place] [id number] Stock Puller: Ion Jasso MD Potassium [Moles/Vol] 4.6 mmol/L Normal 3.7-5.3 [facility] Comment on above: Result Comment: Spec imen hemolysis has exceeded the interference as defined by Joycelyn. Value may be falsely increased. Suggest recollection if clinically indicated. Performed By: #### M G, CDP, CP, LIP #### [address] [place], [place] 0507683 Stock Puller: Ion Jasso MD Protein [Mass/Vol] 7.0 g/dL Normal 6.6-8.7 [facility] Comment on above: Performed By: #### M G, CDP, CP, LIP #### [address] [place], [place] [id number] Stock Puller: Ion Jasso MD Sodium [Moles/Vol] 137 mmol/L Normal 136-145 [facility] Comment on above: Performed By: #### M G, CDP, CP, LIP #### [address] [place] [address] Stock Puller: Ion Jasso MD Urea nitrogen [Mass/Vol] 7 mg/dL Normal 6-20 [facility] Comment on above: Performed By: #### M G, CDP, CP, LIP #### [address] [place], [place] [id number] Stock Puller: Ion Jasso MD [facility] 01-07-2024 Albumin [Mass/Vol] 4.3 g/dL 3.5 - 5.2 g/dL [facility] Albumin/Globulin [Mass ratio] 1.6 {ratio} 1.0 - 2.5 [facility] ALP [Catalytic activity/Vol] 145 U/L High 35 - 104 U/L [facility] ALT [Catalytic activity/Vol] 11 U/L 10 - 35 U/L [facility] Anion gap [Moles/Vol] 12 mmol/L 9 - 16 mmol/L [facility] AST [Catalytic activity/Vol] 25 U/L 10 - 35 U/L [facility] Comment on above: Specimen hemolysis h as exceeded the interference as defined by Joycelyn. Value may be falsely increased. Suggest recollection if clinically indicated. Bilirubin [Mass/Vol] mg/dL 0.00 - 1.20 mg/dL [facility] Calcium [Mass/Vol] 9.8 mg/dL 8.6 - 10. 4 mg/dL [facility] Chloride [Moles/Vol] 103 mmol/L 98 - 10 7 mmol/L [facility] CO2 [Moles/Vol] 22 mmol/L 20 - 31 mmol/L [facility] Creatinine [Mass/Vol] 0.8 mg/dL 0.50 - 0.90 mg/dL [facility] Est, Glom Filt Rate - PINF [facility] Comment on above: These results are [...] [Mass/Vol] 96 mg/dL 74 - 99 mg/dL [facility] Potassium [Moles/Vol] 4.6 mmol/L 3.7 - 5.3 mmol/L [facility] Comment on above: Specimen hemolysis h as exceeded the interference as defined by Joycelyn. Value may be falsely increased. Suggest recollection if clinically indicated. Protein [Mass/Vol] 7.0 g/dL 6.6 - 8.7 g/dL [facility] Sodium [Moles/Vol] 137 mmol/L 136 - 145 mmol/L [facility] Urea nitrogen [Mass/Vol] 7 mg/dL 6 - 20 mg/dL [facility] Urea nitrogen/Creatinine [Mass ratio] 9 mg/mg 9 - 20 [facility] Lactic Acidon 01-07-2024 Lactate (BldV) [Moles/Vol] 1.3 mmol/L 0.5 - 2.2 mmol/L [facility] Lactate [Moles/Vol] 1.3 mmol/L Normal 0.5-2.2 [facility] Comment on above: Performed By: #### M WALTER Silveira, HARITHA, LIP #### [facility] [address] [place] [address] Stock Puller: Ion Jasso MD Lipaseon 01-07-2024 Lipase [Catalytic activity/Vol] 144 U/L High 13 - 60 U/L [facility] Lipase [Catalytic activity/Vol] 144 U/L High 13-60 [facility] Comment on above: Performed By: #### M WALTER Silveira, CP, LIP #### [facility] [address] [place] [address] Stock Puller: Ion Jasso MD No Panel Informationon 01-06 Interpretation and review of laboratory results Abnormal [facility] Urinalysis w/ Microon 2023 Bilirubin, SemiQt,Ur Negative Normal NEG [facility] Comment on above: Performed By: #### U AMIC #### [facility] [address] [place] [address] Stock Puller: Ion Jasso MD Blood, Urine Negative Normal NEG [facility] Comment on above: Performed By: #### U AMIC #### [facility] [address] [place], [place] [id number] Stock Puller: Ion Jasso MD Clarity (U) Clear Normal CLEAR [facility] Comment on above: Performed By: #### U AMIC #### [facility] [address] [place], [place] [phone] Stock Puller: Ion Jasso MD Color (U) Yellow Normal YEL [facility] Comment on above: Performed By: #### U AMIC #### [facility] [address] [place], [place] [phone] Stock Puller: Ion Jasso MD Epithelial cells LM Ql (Urine sed) 0 TO 2 Normal 0-25 [facility] Comment on above: Performed By: #### U AMIC #### [facility] [address] [place] [address] Dr. [place], [place] [phone] Stock Puller: Ion Jasso MD Glucose Ql (U) Negative Normal NEG [facility] Comment on above: Performed By: #### U AMIC #### [facility] [address] [place], [place] [phone] Stock Puller: Ion Jasso MD Ketones Ql (U) Negative Normal NEG [facility] Comment on above: Performed By: #### U AMIC #### [facility] [address] [place] [address] Dr. [place], [place] [phone] Stock Puller: Ion Jasso MD Leukocyte esterase Test strip Ql (U) Negative Normal NEG [facility] Comment on above: Performed By: #### U AMIC #### [facility] [address] [place], [place] 8506583 Stock Puller: Ion Jasso MD Nitrite,Ur Negative Normal NEG [facility] Comment on above: Performed By: #### U AMIC #### [facility] [address] [place], [place] [id number] Stock Puller: Ion Jasso MD PH,Ur 6.0 Normal 5.0-9.0 [facility] Comment on above: Performed By: #### U AMIC #### [facility] [address] [place], [place] 3888083 Stock Puller: Ion Jasso MD Protein Ql (U) Negative Normal NEG [facility] Comment on above: Performed By: #### U AMIC #### [facility] [address] [place], [place] [phone] Stock Puller: Ion Jasso MD Spec. [place],Ur 1.010 Normal 1.010-1.02 0 [facility] Comment on above: Performed By: #### U AMIC #### [address] [place], [place] 3562083 Stock Puller: Ion Jasso MD Urine RBC's None Normal 0-2 [facility] Comment on above: Performed By: #### U AMIC #### [address] [place], [place] 9706583 Stock Puller: Ion Jasso MD Urine WBC's 0 TO 2 Normal 0-5 [facility] Comment on above: Performed By: #### U AMIC #### [address] [place], [place] [phone] Stock Puller: Ion Jasso MD Urobilinogen,Ur Normal Normal 0.0-1.0 [facility] Comment on above: Performed By: #### U AMIC #### [facility] [address] [place] [address] Dr. [place], [place] [id number] Stock Puller: Ion Jasso MD Urinalysis with Microscopico n 01-07-2024 Bilirubin Ql (U) Negative NEGATIVE [facility] Clarity (U) Clear Clear [facility] Color (U) Yellow Yellow [facility] Epithelial cells LM.HPF (Urine sed) [#/Area] 0 TO 2 [facility] Glucose Test strip (U) [Mass/Vol] Negative NEGATIVE mg/dL [facility] Hemoglobin Auto test strip Ql (U) Negative NEGATIVE [facility] Ketones (U) [Mass/Vol] Negative NEGAT MATTHIAS mg/dL [facility] Leukocyte esterase Test strip Ql (U) Negative NEGATIVE [facility] Nitrite Ql (U) Negative NEGATIVE [facility] pH (U) 6.0 [pH] 5.0 - 9.0 [facility] Protein (U) [Mass/Vol] Negative NEGAT MATTHIAS mg/dL [facility] RBC LM.HPF (Urine sed) [#/Area] None [facility] Specific gravity (U) [Rel density] 1.010 1.010 - 1.020 [facility] Urobilinogen Qn (U) Normal 0.0 - 1. 0 EU/dL [facility] WBC LM.HPF (Urine sed) [#/Area] 0 TO 2 [facility] BASIC METABOLIC PANLon 12-28 Anion gap [Moles/Vol] 8 mmol/L Normal 5-15 [facility] Comment on above: Performed By: #### C BCA, BMP, 06713-2, LIVR, 27273-0, 72882-8, 5643-2, 3040-3 #### [facility] ([id number]) [address] [place] [address] 20766 Calcium [Mass/Vol] 9.7 mg/dL Normal 8.5-10.5 [facility] Comment on above: Performed By: #### C BCA, BMP, 75334-3, LIVR, 32086-9, 33569-3, 5643-2, 3040-3 #### [facility] ([id number]) [address] [place] [address] 79143 Chloride [Moles/Vol] 106 mmol/L Normal 98-109 [facility] Comment on above: Performed By: #### C BCA, BMP, 98291-2, LIVR, 80907-6, 32883-2, 5643-2, 3040-3 #### [facility] ([id number]) [address] [place] [address] 60506 CO2 [Moles/Vol] 24 mmol/L Normal 22-32 [facility] Comment on above: Performed By: #### C BCA, BMP, 11941-8, LIVR, 90236-8, 74349-0, 5643-2, 3040-3 #### [facility] ([id number]) [address] [place] [address] 31338 Creatinine [Mass/Vol] 0.88 mg/dL Normal 0.40-1.00 [facility] Comment on above: Result Comment: METH OD TRACEABLE TO IDMS STANDARD Performed By: #### C BCA, BMP, 88226-4, LIVR, 86906-9, 62591-6, 5643-2, 3040-3 #### [facility] ([id number]) [address] [place] [address] 57404 GFR/1.73 sq M.predicted among non-blacks MDRD (S/P/Bld) [Vol rate/Area] 78 mL/min/{1.73_m2} Normal >59 [facility] Comment on above: Result Comment: Reported eGFR is based on the CKD-EPI 1 equation that does not use a race coefficient. Performed By: #### C BCA, BMP, 86476-8, LIVR, 00657-5, 30459-2, 5643-2, 3040-3 #### [facility] ([id number]) [address] [place] [address] 16448 Glucose [Mass/Vol] 82 mg/dL Normal 65-99 [facility] Comment on above: Performed By: #### C BCA, BMP, 33417-3, LIVR, 61597-8, 00712-3, 5643-2, 3040-3 #### [facility] ([id number]) [address] [place] [address] 07413 Potassium [Moles/Vol] 4.2 mmol/L Normal 3.5-5.0 [facility] Comment on above: Result Comment: SPEC IMEN HEMOLYZED, RESULTS INCREASED Performed By: #### C BCA, BMP, 08703-2, LIVR, 41515-3, 84550-3, 5643-2, 3040-3 #### [facility] ([id number]) [address] [place] [address] 49195 Sodium [Moles/Vol] 138 mmol/L Normal 134-146 [facility] Comment on above: Performed By: #### C BCA, BMP, 70617-7, LIVR, 79301-1, 47845-6, 5643-2, 3040-3 #### [facility] ([id number]) [address] [place] [address] 00099 Urea nitrogen [Mass/Vol] 12 mg/dL Normal 5-23 [facility] Comment on above: Performed By: #### C BCA, BMP, 38938-3, LIVR, 17462-6, 98573-5, 5643-2, 3040-3 #### [facility] ([id number]) [address] [place] [address] 67331 CBC AND AUTO DIFFon 10-22-20 24 ABSOLUTE BASOPHIL 0.1 X10E9/L Normal 0.0-0.2 [facility] Comment on above: Performed By: #### C BCA, BMP, 73031-6, LIVR, 50011-7, 53027-3, 5643-2, 3040-3 #### [facility] ([id number]) [address] [place] [address] 27971 ABSOLUTE NEUTROPHIL 3.9 X10E9/L Normal 1.5-6.6 [facility] Comment on above: Performed By: #### C BCA, BMP, 08750-4, LIVR, 98167-7, 48708-9, 5643-2, 3040-3 #### [facility] ([id number]) [address] [place] [address] 79301 Basophils/100 WBC (Bld) 1.3 % Normal [facility] Comment on above: Performed By: #### C BCA, BMP, 50832-4, LIVR, 70449-6, 69138-6, 5643-2, 3040-3 #### [facility] ([id number]) [address] [place] [address] 01039 Eosinophils (Bld) [#/Vol] 0.2 10*3/uL Normal 0.0-0.4 [facility] Comment on above: Performed By: #### C BCA, BMP, 90918-3, LIVR, 63221-7, 33495-4, 5643-2, 3040-3 #### [facility] ([id number]) [address] [place] [address] 95901 Eosinophils/100 WBC (Bld) 2.3 % Normal [facility] Comment on above: Performed By: #### C BCA, BMP, 73825-9, LIVR, 09600-7, 02392-8, 5643-2, 3040-3 #### [facility] ([id number]) [address] [place] [address] 47990 Erythrocyte distribution width (RBC) [Ratio] 13.2 % Normal 11.5-15.0 [facility] Comment on above: Performed By: #### C BCA, BMP, 98106-4, LIVR, 52371-2, 55930-8, 5643-2, 3040-3 #### [facility] ([id number]) [address] [place] [address] 56768 Hematocrit (Bld) [Volume fraction] 41.8 % Normal 35-47 [facility] Comment on above: Performed By: #### C BCA, BMP, 14152-9, LIVR, 22279-0, 14642-9, 5643-2, 3040-3 #### [facility] ([id number]) [address] [place] [address] 91439 Hemoglobin (Bld) [Mass/Vol] 14.3 g/dL Normal 11.7-15.5 [facility] Comment on above: Performed By: #### C BCA, BMP, 63530-3, LIVR, 95323-1, 42978-7, 5643-2, 3040-3 #### [facility] ([id number]) [address] [place] [address] 50113 Lymphocytes (Bld) [#/Vol] 2.5 10*3/uL Normal 1.0-3.5 [facility] Comment on above: Performed By: #### C BCA, BMP, 91317-1, LIVR, 26093-7, 11037-7, 5643-2, 3040-3 #### [facility] ([id number]) [address] [place] [address] 04730 Lymphocytes/100 WBC (Bld) 33.1 % Normal [facility] Comment on above: Performed By: #### C BCA, BMP, 46747-4, LIVR, 51220-4, 22133-5, 5643-2, 3040-3 #### [facility] ([id number]) [address] [place] [address] 85137 MCH (RBC) [Entitic mass] 34.0 pg Normal 27-34 [facility] Comment on above: Performed By: #### C BCA, BMP, 66227-3, LIVR, 74822-0, 53045-3, 5643-2, 3040-3 #### [facility] ([id number]) [address] [place] [address] 93267 MCHC (RBC) [Mass/Vol] 34.1 g/dL Normal 32-36 [facility] Comment on above: Performed By: #### C BCA, BMP, 40084-1, LIVR, 86945-9, 40926-6, 5643-2, 3040-3 #### [facility] ([id number]) [address] [place] [address] 44490 MCV (RBC) [Entitic vol] 100 fL Normal 80-100 [facility] Comment on above: Performed By: #### C BCA, BMP, 87779-9, LIVR, 56075-1, 50099-9, 5643-2, 3040-3 #### [facility] ([id number]) [address] [place] [address] 71920 Monocytes (Bld) [#/Vol] 0.9 10*3/uL Normal 0-0.9 [facility] Comment on above: Performed By: #### C BCA, BMP, 79293-9, LIVR, 72978-0, 45390-8, 5643-2, 3040-3 #### [facility] ([id number]) [address] [place] [address] 05954 Monocytes/100 WBC (Bld) 12.0 % Normal [facility] Comment on above: Performed By: #### C BCA, BMP, 39179-9, LIVR, 80752-1, 36265-5, 5643-2, 3040-3 #### [facility] ([id number]) [address] [place] [address] 76311 Neutrophils/100 WBC (Bld) 51.3 % Normal [facility] Comment on above: Performed By: #### C BCA, BMP, 58912-8, LIVR, 17707-4, 72529-1, 5643-2, 3040-3 #### [facility] ([id number]) [address] [place] [address] [place] [address] Platelet mean volume (Bld) [Entitic vol] 8.2 fL Normal 7-12 [facility] Comment on above: Performed By: #### C BCA, BMP, 63044-8, LIVR, 05319-7, 47558-6, 5643-2, 3040-3 #### [facility] ([id number]) [address] [place] [address] 44014 Platelets (Bld) [#/Vol] 266 10*3/uL Normal 150-450 [facility] Comment on above: Performed By: #### C BCA, BMP, 04633-2, LIVR, 62541-8, 24278-7, 5643-2, 3040-3 #### [facility] ([id number]) [address] [place] [address] 17401 RBC COUNT 4.19 X10E12/L Normal 3.80-5.20 [facility] Comment on above: Performed By: #### C BCA, BMP, 21655-9, LIVR, 28354-3, 59714-2, 5643-2, 3040-3 #### [facility] ([id number]) [address] [place] [address] 13243 WBC (Bld) [#/Vol] 7.7 10*3/uL Normal 4.0-11.0 [facility] Comment on above: Performed By: #### C BCA, BMP, 74206-9, LIVR, 11041-5, 82277-0, 5643-2, 3040-3 #### [facility] ([id number]) [address] [place] [address] ABDOMEN AND PELVIS WO CON Ton [...] Presley MD on 12/29/2023 6:27 AM Normal [facility] ETHANOLon 12-29-2023 Ethanol [Mass/Vol] mg/dL Normal 0.00-0.08 [facility] Comment on above: Result Comment: This report is intended for use in clinical monitoring or management of patients. Performed By: #### C FRANNIE NIEVES, 07736-1, LIVR, 78578-8, 01723-5, 5643-2, 3040-3 #### [facility] ([id number]) [address] [place] [address] 16224 Fibrin D-dimer DDU (PPP) [Ma ss/Vol]on 12-29-2023 D DIMER <150 Normal <255 [facility] Comment on above: Result Comment: Results <255 ng/mL DDU: The presence of a VTE can safely be excluded with a negative D-Dimer result and Wells score. A negative result doesn't exclude the possibility of DIC. The test be repeated along with other diagnostic tests if the patient's symptoms persist or worsen. [email or web address] Performed By: #### C FRANNIE NIEVES, 88787-4, LIVR, 16275-8, 71423-2, 5643-2, 3040-3 #### [facility] ([id number]) [address] [place] [address] 66194 LIPASEon 12-29-2023 Lipase [Catalytic activity/Vol] 55 U/L High 17-40 [facility] Comment on above: Performed By: #### C BCA, BMP, 42663-5, LIVR, 68183-3, 10056-2, 5643-2, 3040-3 #### [facility] ([id number]) [address] [place] [address] 06439 LIVER PANELon 12-29-2023 Albumin [Mass/Vol] 3.9 g/dL Normal 3.2-5.3 [facility] Comment on above: Performed By: #### C BCA, BMP, 10583-3, LIVR, 92505-8, 05670-7, 5643-2, 3040-3 #### [facility] ([id number]) [address] [place] [address] 20390 ALP [Catalytic activity/Vol] 111 U/L Normal 39-130 [facility] Comment on above: Performed By: #### C BCA, BMP, 56530-5, LIVR, 91971-6, 93382-4, 5643-2, 3040-3 #### [facility] ([id number]) [address] [place] [address] 39227 ALT [Catalytic activity/Vol] 11 U/L Normal 0-31 [facility] Comment on above: Performed By: #### C BCA, BMP, 60000-3, LIVR, 53181-5, 47212-6, 5643-2, 3040-3 #### [facility] ([id number]) [address] [place] [address] [place] [address] AST [Catalytic activity/Vol] 23 U/L Normal 0-41 [facility] Comment on above: Performed By: #### C BCA, BMP, 86930-2, LIVR, 56232-4, 27251-7, 5643-2, 3040-3 #### [facility] ([id number]) [address] [place] [address] 67449 Bilirubin [Mass/Vol] 0.5 mg/dL Normal 0.3-1.2 [facility] Comment on above: Result Comment: RESU LTS QUESTIONABLE DUE TO HEMOLYSIS Performed By: #### C BCA, BMP, 06770-6, LIVR, 58485-8, 84637-1, 5643-2, 3040-3 #### [facility] ([id number]) [address] [place] [address] 15282 Bilirubin.direct [Mass/Vol] 0.3 mg/dL Normal 0.0-0.4 [facility] Comment on above: Performed By: #### C BCA, BMP, 72111-5, LIVR, 97707-9, 12036-0, 5643-2, 3040-3 #### [facility] ([id number]) [address] [place] [address] 24561 Protein [Mass/Vol] 6.9 g/dL Normal 6.0-8.0 [facility] Comment on above: Performed By: #### C BCA, BMP, 06471-2, LIVR, 14340-5, 54373-6, 5643-2, 3040-3 #### [facility] ([id number]) [address] [place] [address] 31530 MAGNESIUMon 12-29-2023 Magnesium [Mass/Vol] 2.2 mg/dL Normal 1.8-2.6 [facility] Comment on above: Performed By: #### C BCA, BMP, 51052-4, LIVR, 74973-2, 19748-1, 5643-2, 3040-3 #### [facility] ([id number]) [address] [place] [address] 25528 Troponin I.cardiac High sens itivity method [Mass/Vol]on 12-29-2023 1 HOUR TROP I, HIGH SENSITIVITY 2 ng/L Normal <16 [facility] Comment on above: Performed By: #### 8 9579-7 #### [facility] ([id number]) [address] [facility], [place] [address] TROPONIN I, HIGH SENSITIVITY 2 ng/L Normal <16 [facility] Comment on above: Performed By: #### C BCA, BMP, 76192-7, LIVR, 88065-9, 58853-3, 5643-2, 3040-3 #### [facility] ([id number]) [address] [place] [address], [place] [address] CBC with Diffon 09-29-2023 Basophils (Bld) [#/Vol] [...] [facility] Monocytes/100 WBC (Bld) 0.94 % [facility] Neutrophils/100 WBC (Bld) 73 % High 36 - 65 % [facility] Nucleated RBC/100 WBC (Bld) [Ratio] 0.0 % 0.0 per 100 WBC [facility] Platelet mean volume (Bld) [Entitic vol] 9.4 fL 8.1 - 13.5 fL [facility] Platelets (Bld) [#/Vol] 193 10*3/uL [facility] RBC (Bld) [#/Vol] 4.20 10*6/uL 3.95 - 5.11 m/uL [facility] Segmented neutrophils/100 WBC (Bld) 8.10 % [facility] WBC other (Bld) [#/Vol] 11.3 [facility] CMPon 09-29-2023 Albumin [Mass/Vol] 4.4 g/dL 3.5 - 5.2 g/dL [facility] Albumin/Globulin [Mass ratio] 1.9 {ratio} 1.0 - 2.5 [facility] ALP [Catalytic activity/Vol] 123 U/L High 35 - 104 U/L [facility] ALT [Catalytic activity/Vol] 15 U/L 5 - 33 U/L [facility] Anion gap [Moles/Vol] 10 mmol/L 9 - 17 mmol/L [facility] AST [Catalytic activity/Vol] 21 U/L NINF - 32 U/L [facility] Bilirubin [Mass/Vol] 0.3 mg/dL 0.3 - 1 .2 mg/dL [facility] Calcium [Mass/Vol] 10.0 mg/dL 8.6 - 10. 4 mg/dL [facility] Chloride [Moles/Vol] 104 mmol/L 98 - 10 7 mmol/L [facility] CO2 [Moles/Vol] 24 mmol/L 20 - 31 mmol/L [facility] Creatinine [Mass/Vol] 0.8 mg/dL 0.5 - 0.9 mg/dL [facility] Est, Glom Filt Rate 88 - PINF [facility] Comment on above: These results are [...] 126 mg/dL High 70 - 99 mg/dL [facility] Potassium [Moles/Vol] 3.5 mmol/L Low 3.7 - 5.3 mmol/L [facility] Protein [Mass/Vol] 6.7 g/dL 6.4 - 8.3 g/dL [facility] Sodium [Moles/Vol] 138 mmol/L 135 - 144 mmol/L [facility] Urea nitrogen [Mass/Vol] 10 mg/dL 6 - 20 mg/dL [facility] Urea nitrogen/Creatinine [Mass ratio] 13 mg/mg 9 - 20 [facility] Lipaseon 09-29-2023 Lipase [Catalytic activity/Vol] 141 U/L High 13 - 60 U/L [facility] Microscopic Urinalysison Bacteria LM Ql (Urine sed) TRACE Abnormal None [facility] Epithelial cells LM.HPF (Urine sed) [#/Area] 2 TO 5 [facility] Interpretation and review of laboratory results Abnormal [facility] RBC LM.HPF (Urine sed) [#/Area] 0 TO 2 [facility] WBC LM.HPF (Urine sed) [#/Area] 0 TO 2 [facility] No Panel Informationon 09-28 Interpretation and review of laboratory results Abnormal [facility] Urinalysis with Reflex to Cu ltureon 09-29-2023 Bilirubin Ql (U) Negative NEGATIVE [facility] Clarity (U) Clear Clear [facility] Color (U) Yellow Yellow [facility] Glucose Test strip (U) [Mass/Vol] Negative NEGATIVE mg/dL [facility] Hemoglobin Auto test strip Ql (U) Negative NEGATIVE [facility] Interpretation and review of laboratory results Abnormal [facility] Ketones (U) [Mass/Vol] Negative NEGAT MATTHIAS mg/dL [facility] Leukocyte esterase Test strip Ql (U) Negative NEGATIVE [facility] Nitrite Ql (U) Negative NEGATIVE [facility] pH (U) 6.0 [pH] 5.0 - 9.0 [facility] Protein (U) [Mass/Vol] Negative NEGAT MATTHIAS mg/dL [facility] Specific gravity (U) [Rel density] High 1.010 - 1.020 [facility] Urobilinogen Qn (U) Normal 0.0 - 1. 0 EU/dL [facility] UPPER EUSon 09-08-2023 [facility] Patient Name: Chioma Rainey Procedure Date: 09/08/2023 7:35 AM Date of : 1970 Admit Type: Outpatient Age: 53 Room: EUS Proc Room 01 Gender: Female Note Status: Finalized Attending MD: Sabrina Dee MD, MPH, [id number] Procedure: Upper EUS Indications: Chronic pancreatitis, Celiac [...] the (more content not included)... LAB, [facility] Radiology Study observation (narrative) [facility] Alanine aminotransferase [En zymatic activity/volume] in Serum or PlasmaOrdered By: Darrel Kellogg on 04-18-2023 ALT [Catalytic activity/Vol] 9 U/L 7-52 [facility] Albumin [Mass/volume] in Ser um or Plasma by Bromocresol green (BCG) dye binding methoOrdered By: Darrel Kellogg on 04-18-2023 Albumin BCG dye [Mass/Vol] 4.5 g/dL 3.5-5.7 [facility] Alkaline phosphatase [Enzyma tic activity/volume] in Serum or PlasmaOrdered By: Darrel Kellogg on 04-18-2023 ALP [Catalytic activity/Vol] 107 U/L 34-104 [facility] Amylase [Enzymatic activity/ volume] in Serum or PlasmaOrdered By: Darrel Kellogg on 04-18-2023 Amylase [Catalytic activity/Vol] 72 U/L 29-103 [facility] Aspartate aminotransferase [ Enzymatic activity/volume] in Serum or PlasmaOrdered By: Darrel Kellogg on 04-18-2023 AST [Catalytic activity/Vol] 14 U/L 13-39 [facility] Basophils Auto (Bld) [#/Vol] Ordered By: Darrel Kellogg on 04-18-2023 Basophils (Bld) [#/Vol] 0.1 10*3/uL 0.0-0.2 [facility] Basophils/100 WBC Auto (Bld) Ordered By: Darrel Kellogg on 04-18-2023 Basophils/100 WBC (Bld) 0.8 % . [facility] Bilirubin.direct [Mass/volum e] in Serum or PlasmaOrdered By: Darrel Kellogg on 04-18-2023 Bilirubin.direct [Mass/Vol] 0.00 mg/dL 0.03-0.18 [facility] Comment on above: If the DBIL is less than 0.1, IBIL is not able to becalculated. Bilirubin.total [Mass/volume ] in Serum or PlasmaOrdered By: Darrel Kellogg on 04-18-2023 Bilirubin [Mass/Vol] 0.3 mg/dL 0.3-1.0 [facility] Calcium [Mass/volume] in Ser um or PlasmaOrdered By: Darrel Kellogg on 04-18-2023 Calcium [Mass/Vol] 11.1 mg/dL 8.6-10.3 [facility] Carbon dioxide, total [Moles /volume] in Serum or PlasmaOrdered By: Darrel Kellogg on 04-18-2023 CO2 [Moles/Vol] 30.2 mmol/L 21.0-31.0 [facility] Chloride [Moles/volume] in S erika or PlasmaOrdered By: Darrel Kellogg on 04-18-2023 Chloride [Moles/Vol] 103 mmol/L 98-107 [facility] Creatinine [Mass/volume] in Serum or PlasmaOrdered By: Darrel Kellogg on 04-18-2023 Creatinine [Mass/Vol] 0.80 mg/dL 0.60-1.20 [facility] Eosinophils Auto (Bld) [#/Vo l]Ordered By: Darrel Kellogg on 04-18-2023 Eosinophils (Bld) [#/Vol] 0.0 10*3/uL 0.0-0.45 [facility] Eosinophils/100 WBC Auto (Bl d)Ordered By: Darrel Kellogg on 04-18-2023 Eosinophils/100 WBC (Bld) 0.2 % . [facility] Erythrocyte distribution wid th Auto (RBC) [Ratio]Ordered By: Darrel Kellogg on 04-18-2023 Erythrocyte distribution width (RBC) [Ratio] 13.4 % 11.9-15.3 [facility] Ethanol [Mass/volume] in Ser um or PlasmaOrdered By: Darrel Kellogg on 04-18-2023 Ethanol [Mass/Vol] mg/dL [facility] Ethanol [Mass/Vol] TNP [facility] Comment on above: Test not performed Globulin Calc (S) [Mass/Vol] Ordered By: Darrel Kellogg on 04-18-2023 Globulin (S) [Mass/Vol] 2.2 g/dL [facility] Glucose [Mass/volume] in Ser um or PlasmaOrdered By: Darrel Kellogg on 04-18-2023 Glucose [Mass/Vol] 108 mg/dL 70-100 [facility] Comment on above: ADA recommended refe rence rangeRandom Glucose Reference Range is dependent on time and content of last meal. Glucose of more than 200 mg/dL in a nonstressed, ambulatory subject supports the diagnosis of Diabetes Mellitus. Hematocrit Auto (Bld) [Volum e fraction]Ordered By: Darrel Kellogg on 04-18-2023 Hematocrit (Bld) [Volume fraction] 41.6 % 34.0-46.4 [facility] Hemoglobin [Mass/volume] in BloodOrdered By: Darrel Kellogg on 04-18-2023 Hemoglobin (Bld) [Mass/Vol] 14.3 g/dL 11.8-15.4 [facility] Leukocytes [#/volume] correc aurelia for nucleated erythrocytes in Blood by Automated counOrdered By: Darrel Kellogg on 04-18-2023 WBC corrected for nucl RBC Auto (Bld) [#/Vol] 12.1 10*3/uL 3.8-11.6 [facility] Lipase [Enzymatic activity/v olume] in Serum or PlasmaOrdered By: Darrel Kellogg on 04-18-2023 Lipase [Catalytic activity/Vol] 47.0 U/L 11.0-82.0 [facility] Lymphocytes Auto (Bld) [#/Vo l]Ordered By: Darrel Kellogg on 04-18-2023 Lymphocytes (Bld) [#/Vol] 1.6 10*3/uL 1.00-4.8 [facility] Lymphocytes/100 WBC Auto (Bl d)Ordered By: Darrel Kellogg on 04-18-2023 Lymphocytes/100 WBC (Bld) 12.8 % . [facility] MCH Auto (RBC) [Entitic mass ]Ordered By: Darrel Kellogg on 04-18-2023 MCH (RBC) [Entitic mass] 32.7 pg 24.7-34.3 [facility] MCHC Auto (RBC) [Mass/Vol]Or dered By: Darrel Kellogg on 04-18-2023 MCHC (RBC) [Mass/Vol] 34.3 g/dL 32.0-35.0 [facility] MCV Auto (RBC) [Entitic vol] Ordered By: Darrel Kellogg on 04-18-2023 MCV (RBC) [Entitic vol] 95.5 fL 80-100 [facility] Monocyte distribution width [Entitic volume] in Blood by AutomatedOrdered By: Darrel Kellogg on 04-18-2023 Monocyte distribution width Auto (Bld) [Entitic vol] 16.25 % 0.00-20.00 [facility] Monocytes Auto (Bld) [#/Vol] Ordered By: Darrel Kellogg on 04-18-2023 Monocytes (Bld) [#/Vol] 0.6 10*3/uL 0.0-0.8 [facility] Monocytes/100 WBC Auto (Bld) Ordered By: Darrel Kellogg on 04-18-2023 Monocytes/100 WBC (Bld) 5.4 % . [facility] Neutrophils Auto (Bld) [#/Vo l]Ordered By: Darrel Kellogg on 04-18-2023 Neutrophils (Bld) [#/Vol] 9.8 10*3/uL 1.8-7.7 [facility] Neutrophils/100 WBC Auto (Bl d)Ordered By: Darrel Kellogg on 04-18-2023 Neutrophils/100 WBC (Bld) 80.8 % . [facility] No Panel InformationOrdered By: Darrel Kellogg on 04-18-2023 Estimated GFR (CKD-EPI) > 60.0 mL/Min [facility] Creatinine Clearance (Chem 64.32 [facility] Nucleated erythrocytes [Pres ence] in Blood by Automated countOrdered By: Darrel Kellogg on 04-18-2023 Nucleated RBC Auto Ql (Bld) 0.0 /100{WBC} 0-0.5 [facility] Platelet mean volume Auto (B ld) [Entitic vol]Ordered By: Darrel Kellogg on 04-18-2023 Platelet mean volume (Bld) [Entitic vol] 8.1 fL 6.3-10.7 [facility] Platelets Auto (Bld) [#/Vol] Ordered By: Darrel Kellogg on 04-18-2023 Platelets (Bld) [#/Vol] 227 10*3/uL 150-450 [facility] Potassium [Moles/volume] in Serum or PlasmaOrdered By: Darrel Kellogg on 04-18-2023 Potassium [Moles/Vol] 3.2 mmol/L 3.5-5.1 [facility] Protein [Mass/volume] in Ser um or PlasmaOrdered By: Darrel Kellogg on 04-18-2023 Protein [Mass/Vol] 6.7 g/dL 6.4-8.9 [facility] RBC Auto (Bld) [#/Vol]Ordere d By: Darrel Kellogg on 04-18-2023 RBC (Bld) [#/Vol] 4.35 10*6/uL 3.60-5.00 [facility] Serum or plasma albumin/glob ulin mass ratioOrdered By: Darrel Kellogg on 04-18-2023 Albumin/Globulin [Mass ratio] 2.0 {ratio} [facility] Serum or plasma anion gap de terminationOrdered By: Darrel Kellogg on 04-18-2023 Anion gap [Moles/Vol] 10.0 mmol/L 6.0-15.0 [facility] Serum or plasma non-glucuron idated bilirubin measurement (mass/volume)Ordered By: Darrel Kellogg on 04-18-2023 Bilirubin.indirect [Mass/Vol] 0.3 mg/dL [facility] Sodium [Moles/volume] in Ser um or PlasmaOrdered By: Darrel Kellogg on 04-18-2023 Sodium [Moles/Vol] 140 mmol/L 136-145 [facility] Urea nitrogen [Mass/volume] in Serum or PlasmaOrdered By: Darrel Kellogg on 04-18-2023 Urea nitrogen [Mass/Vol] 7 mg/dL 09-30 [facility] WBC Auto (Bld) [#/Vol]Ordere d By: Darrel Kellogg on 04-18-2023 WBC (Bld) [#/Vol] 12.1 10*3/uL 3.8-11.6 [facility] Activated partial thrombopla stin time (aPTT) in platelet poor plasma by coagulation aOrdered By: Rivera Lopez on 04-11-2023 aPTT Coag (PPP) [Time] 23.3 s 25.1-36.5 [facility] Comment on above: A hematocrit value g reater than 55% may lead to inaccurate results in coagulation testing. Patients having hematocrit values >55% require a special collection tube for coagulation studies. Please contact the laboratory at [phone] for redraw instructions. Alanine aminotransferase [En zymatic activity/volume] in Serum or PlasmaOrdered By: Rivera Lopez on 04-11-2023 ALT [Catalytic activity/Vol] 13 U/L [facility] Albumin [Mass/volume] in Ser um or Plasma by Bromocresol green (BCG) dye binding methoOrdered By: Rivera Lopez on 04-11-2023 Albumin BCG dye [Mass/Vol] 4.5 g/dL 3.5-5.7 [facility] Alkaline phosphatase [Enzyma tic activity/volume] in Serum or PlasmaOrdered By: Rivera Lopez on 04-11-2023 ALP [Catalytic activity/Vol] 111 U/L 34-104 [facility] Aspartate aminotransferase [ Enzymatic activity/volume] in Serum or PlasmaOrdered By: Rivera Lopez on 04-11-2023 AST [Catalytic activity/Vol] 17 U/L 13-39 [facility] Automated erythrocytes count in urine sediment (number/area)Ordered By: Rivera Lopez on 04-11-2023 RBC Auto (Urine sed) [#/Area] 0-1 [HPF] 0-4 [facility] Automated leukocytes count i n urine sediment (number/area)Ordered By: Rivera Lopez on 04-11-2023 WBC Auto (Urine sed) [#/Area] 3-4 [HPF] 0-4 [facility] Basophils Auto (Bld) [#/Vol] Ordered By: Rivera Lopez on 04-11-2023 Basophils (Bld) [#/Vol] 0.1 10*3/uL 0.0-0.2 [facility] Basophils/100 WBC Auto (Bld) Ordered By: Rivera Lopez on 04-11-2023 Basophils/100 WBC (Bld) 0.4 % . [facility] Bilirubin Test strip Ql (U)O rdered By: Rivera Lopez on 04-11-2023 Bilirubin Ql (U) Negative Negative [facility] Bilirubin.direct [Mass/volum e] in Serum or PlasmaOrdered By: Rivera Lopez on 04-11-2023 Bilirubin.direct [Mass/Vol] 0.00 mg/dL 0.03-0.18 [facility] Comment on above: If the DBIL is less than 0.1, IBIL is not able to becalculated. Bilirubin.total [Mass/volume ] in Serum or PlasmaOrdered By: Rivera Lopez on 04-11-2023 Bilirubin [Mass/Vol] 0.3 mg/dL 0.3-1.0 [facility] Calcium [Mass/volume] in Ser um or PlasmaOrdered By: Rivera Lopez on 04-11-2023 Calcium [Mass/Vol] 10.3 mg/dL 8.6-10.3 [facility] Carbon dioxide, total [Moles /volume] in Serum or PlasmaOrdered By: Rivera Lopez on 04-11-2023 CO2 [Moles/Vol] 26.9 mmol/L 21.0-31.0 [facility] Chloride [Moles/volume] in S erika or PlasmaOrdered By: Rivera Lopez on 04-11-2023 Chloride [Moles/Vol] 103 mmol/L 98-107 [facility] Color Auto (U)Ordered By: Og red Jessica on 04-11-2023 Color (U) Yellow Yellow [facility] Creatinine [Mass/volume] in Serum or PlasmaOrdered By: Rivera Lopez on 04-11-2023 Creatinine [Mass/Vol] 0.86 mg/dL 0.60-1.20 [facility] Eosinophils Auto (Bld) [#/Vo l]Ordered By: Rivera Lopez on 04-11-2023 Eosinophils (Bld) [#/Vol] 0.0 10*3/uL 0.0-0.45 [facility] Eosinophils/100 WBC Auto (Bl d)Ordered By: Rivera Lopez on 04-11-2023 Eosinophils/100 WBC (Bld) 0.0 % . [facility] Erythrocyte distribution wid th Auto (RBC) [Ratio]Ordered By: Rivera Lopez on 04-11-2023 Erythrocyte distribution width (RBC) [Ratio] 13.6 % 11.9-15.3 [facility] Globulin Calc (S) [Mass/Vol] Ordered By: Rivera Lopez on 04-11-2023 Globulin (S) [Mass/Vol] 2.4 g/dL [facility] Glucose [Mass/volume] in Ser um or PlasmaOrdered By: Rivera Lopez on 04-11-2023 Glucose [Mass/Vol] 121 mg/dL 70-100 [facility] Comment on above: ADA recommended refe rence rangeRandom Glucose Reference Range is dependent on time and content of last meal. Glucose of more than 200 mg/dL in a nonstressed, ambulatory subject supports the diagnosis of Diabetes Mellitus. Hematocrit Auto (Bld) [Volum e fraction]Ordered By: Rivera Lopez on 04-11-2023 Hematocrit (Bld) [Volume fraction] 41.3 % 34.0-46.4 [facility] Hemoglobin [Mass/volume] in BloodOrdered By: Rivera Lopez on 04-11-2023 Hemoglobin (Bld) [Mass/Vol] 13.7 g/dL 11.8-15.4 [facility] INR in Platelet poor plasma by Coagulation assayOrdered By: Rivera Lopez on 04-11-2023 INR Coag (PPP) [Relative time] 1.0 {INR} [facility] Comment on above: INR Therapeutic Rang [...] on 04-11-2023 Ketones (U) [Mass/Vol] Negative Negative [facility] Laboratory - UrinalysisOrder ed By: Rivera Lopez on 04-11-2023 Hyaline casts LM Ql (Urine sed) None seen [LPF] 0-8 [facility] Leukocytes [#/volume] correc aurelia for nucleated erythrocytes in Blood by Automated counOrdered By: Rivera Lopez on 04-11-2023 WBC corrected for nucl RBC Auto (Bld) [#/Vol] 13.9 10*3/uL 3.8-11.6 [facility] Lipase [Enzymatic activity/v olume] in Serum or PlasmaOrdered By: Rivera Lopez on 04-11-2023 Lipase [Catalytic activity/Vol] 26.0 U/L 11.0-82.0 [facility] Lymphocytes Auto (Bld) [#/Vo l]Ordered By: Rivera Lopez on 04-11-2023 Lymphocytes (Bld) [#/Vol] 1.1 10*3/uL 1.00-4.8 [facility] Lymphocytes/100 WBC Auto (Bl d)Ordered By: Rivera Lopez on 04-11-2023 Lymphocytes/100 WBC (Bld) 8.1 % . [facility] MCH Auto (RBC) [Entitic mass ]Ordered By: Rivera Lopez on 04-11-2023 MCH (RBC) [Entitic mass] 32.2 pg 24.7-34.3 [facility] MCHC Auto (RBC) [Mass/Vol]Or dered By: Rivera Lopez on 04-11-2023 MCHC (RBC) [Mass/Vol] 33.2 g/dL 32.0-35.0 [facility] MCV Auto (RBC) [Entitic vol] Ordered By: Rivera Lopez on 04-11-2023 MCV (RBC) [Entitic vol] 96.8 fL 80-100 [facility] Monocyte distribution width [Entitic volume] in Blood by AutomatedOrdered By: Rivera Lopez on 04-11-2023 Monocyte distribution width Auto (Bld) [Entitic vol] 17.01 % 0.00-20.00 [facility] Monocytes Auto (Bld) [#/Vol] Ordered By: Rivera Lopez on 04-11-2023 Monocytes (Bld) [#/Vol] 0.6 10*3/uL 0.0-0.8 [facility] Monocytes/100 WBC Auto (Bld) Ordered By: Rivera Lopez on 04-11-2023 Monocytes/100 WBC (Bld) 4.3 % . [facility] Neutrophils Auto (Bld) [#/Vo l]Ordered By: Rivera Lopez on 04-11-2023 Neutrophils (Bld) [#/Vol] 12.1 10*3/uL 1.8-7.7 [facility] Neutrophils/100 WBC Auto (Bl d)Ordered By: Rivera Lopez on 04-11-2023 Neutrophils/100 WBC (Bld) 87.2 % . [facility] Nitrite Test strip Ql (U)Ord ered By: Rivera Lopez on 04-11-2023 Nitrite Ql (U) Negative Negative [facility] No Panel InformationOrdered By: Rivera Lopez on 04-11-2023 Estimated GFR (CKD-EPI) > 60.0 mL/Min [facility] Creatinine Clearance (Chem 59.83 [facility] Nucleated erythrocytes [Pres ence] in Blood by Automated countOrdered By: Rivera Lopez on 04-11-2023 Nucleated RBC Auto Ql (Bld) 0.0 /100{WBC} 0-0.5 [facility] Platelet mean volume Auto (B ld) [Entitic vol]Ordered By: Rivera Lopez on 04-11-2023 Platelet mean volume (Bld) [Entitic vol] 7.7 fL 6.3-10.7 [facility] Platelets Auto (Bld) [#/Vol] Ordered By: Rivera Lopez on 04-11-2023 Platelets (Bld) [#/Vol] 262 10*3/uL 150-450 [facility] Potassium [Moles/volume] in Serum or PlasmaOrdered By: Rivera Lopez on 04-11-2023 Potassium [Moles/Vol] 4.0 mmol/L 3.5-5.1 [facility] Protein Auto test strip (U) [Mass/Vol]Ordered By: Rivera Lopez on 04-11-2023 Protein (U) [Mass/Vol] Negative Negative [facility] Protein [Mass/volume] in Ser um or PlasmaOrdered By: Rivera Lopez on 04-11-2023 Protein [Mass/Vol] 6.9 g/dL 6.4-8.9 [facility] Prothrombin time (PT)Ordered By: Rivera Lopez on 04-11-2023 PT Coag (PPP) [Time] 11.2 s 9.0-12.9 [facility] Comment on above: A hematocrit value g reater than 55% may lead to inaccurate results in coagulation testing. Patients having hematocrit values >55% require a special collection tube for coagulation studies. Please contact the laboratory at [phone] for redraw instructions. RBC Auto (Bld) [#/Vol]Ordere d By: Rivera Lopez on 04-11-2023 RBC (Bld) [#/Vol] 4.27 10*6/uL 3.60-5.00 [facility] Serum or plasma albumin/glob ulin mass ratioOrdered By: Rivera Lopez on 04-11-2023 Albumin/Globulin [Mass ratio] 1.9 {ratio} [facility] Serum or plasma anion gap de terminationOrdered By: Rivera Lopez on 04-11-2023 Anion gap [Moles/Vol] 14.1 mmol/L 6.0-15.0 [facility] Serum or plasma non-glucuron idated bilirubin measurement (mass/volume)Ordered By: Rivera Lopez on 04-11-2023 Bilirubin.indirect [Mass/Vol] 0.3 mg/dL [facility] Sodium [Moles/volume] in Ser um or PlasmaOrdered By: Rivera Lopez on 04-11-2023 Sodium [Moles/Vol] 140 mmol/L 136-145 [facility] Specific gravity Auto test s trip (U) [Rel density]Ordered By: Rivera Lopez on 04-11-2023 Specific gravity (U) [Rel density] > 1.050 1.001-1.03 0 [facility] Squamous epithelial cells de tection in urine sediment by light microscopyOrdered By: Rivera Lopez on 04-11-2023 Epithelial cells.squamous LM Ql (Urine sed) 0-1 [HPF] 0-2 [facility] Urea nitrogen [Mass/volume] in Serum or PlasmaOrdered By: Rivera Lopez on 04-11-2023 Urea nitrogen [Mass/Vol] 5 mg/dL 7-25 [facility] Urine bacteria detection by automated methodOrdered By: Rivera Lopez on 04-11-2023 Bacteria Auto Ql (U) None seen None Seen [facility] Urine clarity by refractomet ry automatedOrdered By: Rivera Lopez on 04-11-2023 Clarity Refractometry automated (U) Turbid Clear [facility] Urine glucose measurement by automated test strip (mass/volume)Ordered By: Rivera Lopez on 04-11-2023 Glucose Auto test strip (U) [Mass/Vol] Normal mg/dL Normal [facility] Urine hemoglobin detection b y automated test stripOrdered By: Rivera Lopez on 04-11-2023 Hemoglobin Auto test strip Ql (U) Negative Negative [facility] Urine leukocyte esterase det ection by automated test stripOrdered By: Rivera Lopez on 04-11-2023 Leukocyte esterase Auto test strip Ql (U) Negative Negative [facility] Urobilinogen Auto test strip (U) [Mass/Vol]Ordered By: Rivera Lopez on 04-11-2023 Urobilinogen (U) [Mass/Vol] Normal mg/dL Normal [facility] WBC Auto (Bld) [#/Vol]Ordere d By: Rivera Lopez on 04-11-2023 WBC (Bld) [#/Vol] 13.9 10*3/uL 3.8-11.6 [facility] pH Auto test strip (U)Ordere d By: Rivera Lopez on 04-11-2023 pH (U) 8.0 [pH] 5.0-9.0 [facility] Alanine aminotransferase [En zymatic activity/volume] in Serum or PlasmaOrdered By: Nicole Posadas on 04-02-2023 ALT [Catalytic activity/Vol] 11 U/L 7-52 [facility] Albumin [Mass/volume] in Ser um or Plasma by Bromocresol green (BCG) dye binding methoOrdered By: Nicole Posadas on 04-02-2023 Albumin BCG dye [Mass/Vol] 4.2 g/dL 3.5-5.7 [facility] Alkaline phosphatase [Enzyma tic activity/volume] in Serum or PlasmaOrdered By: Nicole Posadas on 04-02-2023 ALP [Catalytic activity/Vol] 101 U/L 34-104 [facility] Aspartate aminotransferase [ Enzymatic activity/volume] in Serum or PlasmaOrdered By: Nicole Posadas on 04-02-2023 AST [Catalytic activity/Vol] 21 U/L 13-39 [facility] Basophils Auto (Bld) [#/Vol] Ordered By: Nicole Posadas on 04-02-2023 Basophils (Bld) [#/Vol] 0.0 10*3/uL 0.0-0.2 [facility] Basophils/100 WBC Auto (Bld) Ordered By: Nicole Posadas on 04-02-2023 Basophils/100 WBC (Bld) 0.2 % . [facility] Bilirubin Test strip Ql (U)O rdered By: Nicole Posadas on 04-02-2023 Bilirubin Ql (U) Negative Negative [facility] Bilirubin.total [Mass/volume ] in Serum or PlasmaOrdered By: Nicole Posadas on 04-02-2023 Bilirubin [Mass/Vol] 0.3 mg/dL 0.3-1.0 [facility] Calcium [Mass/volume] in Ser um or PlasmaOrdered By: Nicole Posadas on 04-02-2023 Calcium [Mass/Vol] 9.7 mg/dL 8.6-10.3 [facility] Carbon dioxide, total [Moles /volume] in Serum or PlasmaOrdered By: Nicole Posadas on 04-02-2023 CO2 [Moles/Vol] 26.3 mmol/L 21.0-31.0 [facility] Chloride [Moles/volume] in S erika or PlasmaOrdered By: Nicole Posadas on 04-02-2023 Chloride [Moles/Vol] 106 mmol/L 98-107 [facility] Color Auto (U)Ordered By: Co ancelmo Posadas on 04-02-2023 Color (U) Yellow Yellow [facility] Creatinine [Mass/volume] in Serum or PlasmaOrdered By: Nicole Posadas on 04-02-2023 Creatinine [Mass/Vol] 0.82 mg/dL 0.60-1.20 [facility] Eosinophils Auto (Bld) [#/Vo l]Ordered By: Nicole Posadas on 04-02-2023 Eosinophils (Bld) [#/Vol] 0.1 10*3/uL 0.0-0.45 [facility] Eosinophils/100 WBC Auto (Bl d)Ordered By: Nicole Posadas on 04-02-2023 Eosinophils/100 WBC (Bld) 1.7 % . [facility] [facility] Erythrocyte distribution wid th Auto (RBC) [Ratio]Ordered By: Nicole Posadas on 04-02-2023 Erythrocyte distribution width (RBC) [Ratio] 13.3 % 11.9-15.3 [facility] Fibrin D-dimer [Presence] in Platelet poor plasma by Latex agglutinationOrdered By: Nicole Posadas on 04-02-2023 Fibrin D-dimer LA Ql (PPP) < 200 ng/mL 0-243 [facility] Comment on above: The reference range [...] coagulation studies. Please contact the laboratory at [phone] for redraw instructions. Globulin Calc (S) [Mass/Vol] Ordered By: Nicole Posadas on 04-02-2023 Globulin (S) [Mass/Vol] 2.4 g/dL [facility] Glucose [Mass/volume] in Ser um or PlasmaOrdered By: Nicole Posadas on 04-02-2023 Glucose [Mass/Vol] 90 mg/dL 70-100 [facility] Comment on above: ADA recommended refe rence rangeRandom Glucose Reference Range is dependent on time and content of last meal. Glucose of more than 200 mg/dL in a nonstressed, ambulatory subject supports the diagnosis of Diabetes Mellitus. Hematocrit Auto (Bld) [Volum e fraction]Ordered By: Nicole Posadas on 04-02-2023 Hematocrit (Bld) [Volume fraction] 41.8 % 34.0-46.4 [facility] Hemoglobin [Mass/volume] in BloodOrdered By: Nicole Posadas 04-02-2023 Hemoglobin (Bld) [Mass/Vol] 14.2 g/dL 11.8-15.4 [facility] Ketones Auto test strip (U) [Mass/Vol]Ordered By: Nicole Psoadas on 04-02-2023 Ketones (U) [Mass/Vol] Negative Negative [facility] Leukocytes [#/volume] correc aurelia for nucleated erythrocytes in Blood by Automated counOrdered By: Nicole Posadas on 04-02-2023 WBC corrected for nucl RBC Auto (Bld) [#/Vol] 6.2 10*3/uL 3.8-11.6 [facility] Lipase [Enzymatic activity/v olume] in Serum or PlasmaOrdered By: Nicole Posadas on 04-02-2023 Lipase [Catalytic activity/Vol] 186.0 U/L 11.0-82.0 [facility] Lymphocytes Auto (Bld) [#/Vo l]Ordered By: Nicole Posadas on 04-02-2023 Lymphocytes (Bld) [#/Vol] 1.8 10*3/uL 1.00-4.8 [facility] Lymphocytes/100 WBC Auto (Bl d)Ordered By: Nicole Posadas on 04-02-2023 Lymphocytes/100 WBC (Bld) 29.2 % . [facility] MCH Auto (RBC) [Entitic mass ]Ordered By: Nicole Posadas on 04-02-2023 MCH (RBC) [Entitic mass] 33.1 pg 24.7-34.3 [facility] MCHC Auto (RBC) [Mass/Vol]Or dered By: Nicole Posadas on 04-02-2023 MCHC (RBC) [Mass/Vol] 34.0 g/dL 32.0-35.0 [facility] MCV Auto (RBC) [Entitic vol] Ordered By: Nicole Posadas on 04-02-2023 MCV (RBC) [Entitic vol] 97.4 fL 80-100 [facility] Monocyte distribution width [Entitic volume] in Blood by AutomatedOrdered By: Nicole Posadas on 04-02-2023 Monocyte distribution width Auto (Bld) [Entitic vol] 17.36 % 0.00-20.00 [facility] Monocytes Auto (Bld) [#/Vol] Ordered By: Nicole Posadas on 04-02-2023 Monocytes (Bld) [#/Vol] 0.6 10*3/uL 0.0-0.8 [facility] Monocytes/100 WBC Auto (Bld) Ordered By: Nicole Posadas on 04-02-2023 Monocytes/100 WBC (Bld) 9.8 % . [facility] Neutrophils Auto (Bld) [#/Vo l]Ordered By: Nicole Posadas on 04-02-2023 Neutrophils (Bld) [#/Vol] 3.6 10*3/uL 1.8-7.7 [facility] Neutrophils/100 WBC Auto (Bl d)Ordered By: Nicole Posadas on 04-02-2023 Neutrophils/100 WBC (Bld) 59.1 % . [facility] Nitrite Test strip Ql (U)Ord ered By: Nicole Posadas on 04-02-2023 Nitrite Ql (U) Negative Negative [facility] No Panel InformationOrdered By: Nicole Posadas on 04-02-2023 Estimated GFR (CKD-EPI) > 60.0 mL/Min [facility] Creatinine Clearance (Chem 62.75 [facility] Nucleated erythrocytes [Pres ence] in Blood by Automated countOrdered By: Nicole Posadas on 04-02-2023 Nucleated RBC Auto Ql (Bld) 0.1 /100{WBC} 0-0.5 [facility] Platelet mean volume Auto (B ld) [Entitic vol]Ordered By: Nicole Posaads on 04-02-2023 Platelet mean volume (Bld) [Entitic vol] 8.3 fL 6.3-10.7 [facility] Platelets Auto (Bld) [#/Vol] Ordered By: Nicole Posadas on 04-02-2023 Platelets (Bld) [#/Vol] 236 10*3/uL 150-450 [facility] Potassium [Moles/volume] in Serum or PlasmaOrdered By: Nicole Posadas on 04-02-2023 Potassium [Moles/Vol] 4.3 mmol/L 3.5-5.1 [facility] Protein Auto test strip (U) [Mass/Vol]Ordered By: Nicole Posadas on 04-02-2023 Protein (U) [Mass/Vol] Negative Negative [facility] Protein [Mass/volume] in Ser um or PlasmaOrdered By: Nicole Posadas on 04-02-2023 Protein [Mass/Vol] 6.6 g/dL 6.4-8.9 [facility] RBC Auto (Bld) [#/Vol]Ordere d By: Nicole Posadas on 04-02-2023 RBC (Bld) [#/Vol] 4.29 10*6/uL 3.60-5.00 [facility] Serum or plasma albumin/glob ulin mass ratioOrdered By: Nicole Posadas on 04-02-2023 Albumin/Globulin [Mass ratio] 1.8 {ratio} [facility] Serum or plasma anion gap de terminationOrdered By: Nicole Posadas on 04-02-2023 Anion gap [Moles/Vol] TNP [facility] Comment on above: Test not performed Sodium [Moles/volume] in Ser um or PlasmaOrdered By: Nicole Posadas on 04-02-2023 Sodium [Moles/Vol] 137 mmol/L 136-145 [facility] Specific gravity Auto test s trip (U) [Rel density]Ordered By: Nicole Posadas on 04-02-2023 Specific gravity (U) [Rel density] 1.022 1.001-1.03 0 [facility] Troponin I.cardiac [Mass/vol ume] in Serum or Plasma by Detection limit <= 0.01 ng/Ordered By: Nicole Posadas on 04-02-2023 Troponin I.cardiac DL <= 0.01 ng/mL [Mass/Vol] 2.6 pg/mL 0.0-15.0 [facility] Urea nitrogen [Mass/volume] in Serum or PlasmaOrdered By: Nicole Posadas on 04-02-2023 Urea nitrogen [Mass/Vol] 7 mg/dL 7 [facility] Urine clarity by refractomet ry automatedOrdered By: Nicole Posadas on 04-02-2023 Clarity Refractometry automated (U) Clear Clear [facility] Urine glucose measurement by automated test strip (mass/volume)Ordered By: Nicole Posadas on 04-02-2023 Glucose Auto test strip (U) [Mass/Vol] Normal mg/dL Normal [facility] Urine hemoglobin detection b y automated test stripOrdered By: Nicole Posadas on 04-02-2023 Hemoglobin Auto test strip Ql (U) Negative Negative [facility] Urine leukocyte esterase det ection by automated test stripOrdered By: Nicole Posadas on 04-02-2023 Leukocyte esterase Auto test strip Ql (U) Negative Negative [facility] Urobilinogen Auto test strip (U) [Mass/Vol]Ordered By: Nicole Posadas on 04-02-2023 Urobilinogen (U) [Mass/Vol] Normal mg/dL Normal [facility] WBC Auto (Bld) [#/Vol]Ordere d By: Nicole Posadas on 04-02-2023 WBC (Bld) [#/Vol] 6.2 10*3/uL 3.8-11.6 [facility] pH Auto test strip (U)Ordere d By: Nicole Posadas on 04-02-2023 pH (U) 5.5 [pH] 5.0-9.0 [facility] Alanine aminotransferase [En zymatic activity/volume] in Serum or PlasmaOrdered By: Nicole Posadas on 11-09-2022 ALT [Catalytic activity/Vol] 12 U/L 7-52 [facility] Albumin [Mass/volume] in Ser um or Plasma by Bromocresol green (BCG) dye binding methoOrdered By: Nicole Posadas on 11-09-2022 Albumin BCG dye [Mass/Vol] 4.4 g/dL 3.5-5.7 [facility] Alkaline phosphatase [Enzyma tic activity/volume] in Serum or PlasmaOrdered By: Nicole Posadas on 11-09-2022 ALP [Catalytic activity/Vol] 126 U/L 34-104 [facility] Aspartate aminotransferase [ Enzymatic activity/volume] in Serum or PlasmaOrdered By: Nicole Posadas on 11-09-2022 AST [Catalytic activity/Vol] 17 U/L 13-39 [facility] Basophils Auto (Bld) [#/Vol] Ordered By: Nicole Posadas on 11-09-2022 Basophils (Bld) [#/Vol] 0.1 10*3/uL 0.0-0.2 [facility] Basophils/100 WBC Auto (Bld) Ordered By: Nicole Posadas on 11-09-2022 Basophils/100 WBC (Bld) 0.9 % . [facility] Bilirubin Test strip Ql (U)O rdered By: Nicole Posadas on 11-09-2022 Bilirubin Ql (U) Negative Negative [facility] Bilirubin.total [Mass/volume ] in Serum or PlasmaOrdered By: Nicole Posadas on 11-09-2022 Bilirubin [Mass/Vol] 0.3 mg/dL 0.3-1.0 [facility] Calcium [Mass/volume] in Ser um or PlasmaOrdered By: Nicole Posadas on 11-09-2022 Calcium [Mass/Vol] 9.7 mg/dL 8.6-10.3 [facility] Carbon dioxide, total [Moles /volume] in Serum or PlasmaOrdered By: Nicole Posadas on 11-09-2022 CO2 [Moles/Vol] 28.6 mmol/L 21.0-31.0 [facility] Chloride [Moles/volume] in S erika or PlasmaOrdered By: Nicole Posadas on 11-09-2022 Chloride [Moles/Vol] 107 mmol/L 98-107 [facility] Color Auto (U)Ordered By: Reshma Posadas on 11-09-2022 Color (U) Yellow Yellow [facility] Creatinine [Mass/volume] in Serum or PlasmaOrdered By: Nicole Posadas on 11-09-2022 Creatinine [Mass/Vol] 0.78 mg/dL 0.60-1.20 [facility] Eosinophils Auto (Bld) [#/Vo l]Ordered By: Nicole Posadas on 11-09-2022 Eosinophils (Bld) [#/Vol] 0.1 10*3/uL 0.0-0.45 [facility] Eosinophils/100 WBC Auto (Bl d)Ordered By: Nicole Posadas on 11-09-2022 Eosinophils/100 WBC (Bld) 1.6 % . [facility] Erythrocyte distribution wid th Auto (RBC) [Ratio]Ordered By: Nicole Posadas on 11-09-2022 Erythrocyte distribution width (RBC) [Ratio] 13.6 % 11.9-15.3 [facility] Globulin Calc (S) [Mass/Vol] Ordered By: Nicole Posadas on 11-09-2022 Globulin (S) [Mass/Vol] 2.7 g/dL [facility] Glucose [Mass/volume] in Ser um or PlasmaOrdered By: Nicole Posadas on 11-09-2022 Glucose [Mass/Vol] 96 mg/dL 70-100 [facility] Comment on above: ADA recommended refe rence rangeRandom Glucose Reference Range is dependent on time and content of last meal. Glucose of more than 200 mg/dL in a nonstressed, ambulatory subject supports the diagnosis of Diabetes Mellitus. Hematocrit Auto (Bld) [Volum e fraction]Ordered By: Nicole Posadas on 11-09-2022 Hematocrit (Bld) [Volume fraction] 44.4 % 34.0-46.4 [facility] Hemoglobin [Mass/volume] in BloodOrdered By: Nicole Posadas on 11-09-2022 Hemoglobin (Bld) [Mass/Vol] 14.9 g/dL 11.8-15.4 [facility] Ketones Auto test strip (U) [Mass/Vol]Ordered By: Nicole Posadas on 11-09-2022 Ketones (U) [Mass/Vol] Negative Negative [facility] Leukocytes [#/volume] correc aurelia for nucleated erythrocytes in Blood by Automated counOrdered By: Nicole Posadas on 11-09-2022 WBC corrected for nucl RBC Auto (Bld) [#/Vol] 9.3 10*3/uL 3.8-11.6 [facility] Lipase [Enzymatic activity/v olume] in Serum or PlasmaOrdered By: Nicole Posadas on 11-09-2022 Lipase [Catalytic activity/Vol] 78.0 U/L 11.0-82.0 [facility] Lymphocytes Auto (Bld) [#/Vo l]Ordered By: Nicole Posadas on 11-09-2022 Lymphocytes (Bld) [#/Vol] 2.2 10*3/uL 1.00-4.8 [facility] Lymphocytes/100 WBC Auto (Bl d)Ordered By: Nicole Posadas on 11-09-2022 Lymphocytes/100 WBC (Bld) 24.0 % . [facility] MCH Auto (RBC) [Entitic mass ]Ordered By: Nicole Posadas on 11-09-2022 MCH (RBC) [Entitic mass] 32.8 pg 24.7-34.3 [facility] MCHC Auto (RBC) [Mass/Vol]Or dered By: Nicole Posadas on 11-09-2022 MCHC (RBC) [Mass/Vol] 33.4 g/dL 32.0-35.0 [facility] MCV Auto (RBC) [Entitic vol] Ordered By: Nicole Posadas on 11-09-2022 MCV (RBC) [Entitic vol] 98.2 fL 80-100 [facility] Monocyte distribution width [Entitic volume] in Blood by AutomatedOrdered By: Nicole Posadas on 11-09-2022 Monocyte distribution width Auto (Bld) [Entitic vol] 18.76 % 0.00-20.00 [facility] Monocytes Auto (Bld) [#/Vol] Ordered By: Nicole Posadas on 11-09-2022 Monocytes (Bld) [#/Vol] 0.8 10*3/uL 0.0-0.8 [facility] Monocytes/100 WBC Auto (Bld) Ordered By: Nicole Posadas on 11-09-2022 Monocytes/100 WBC (Bld) 8.1 % . [facility] Neutrophils Auto (Bld) [#/Vo l]Ordered By: Nicole Posadas on 11-09-2022 Neutrophils (Bld) [#/Vol] 6.1 10*3/uL 1.8-7.7 [facility] Neutrophils/100 WBC Auto (Bl d)Ordered By: Nicole Posadas on 11-09-2022 Neutrophils/100 WBC (Bld) 65.4 % . [facility] Nitrite Test strip Ql (U)Ord ered By: Nicole Posadas on 11-09-2022 Nitrite Ql (U) Negative Negative [facility] No Panel InformationOrdered By: Nicole Posadas on 11-09-2022 Estimated GFR (CKD-EPI) > 60.0 mL/Min [facility] Creatinine Clearance (Chem 69.00 [facility] Nucleated erythrocytes [Pres ence] in Blood by Automated countOrdered By: Nicole Posadas on 11-09-2022 Nucleated RBC Auto Ql (Bld) 0.0 /100{WBC} 0-0.5 [facility] Platelet mean volume Auto (B ld) [Entitic vol]Ordered By: Nicole Posadas on 11-09-2022 Platelet mean volume (Bld) [Entitic vol] 8.3 fL 6.3-10.7 [facility] Platelets Auto (Bld) [#/Vol] Ordered By: Nicole Posadas on 11-09-2022 Platelets (Bld) [#/Vol] 246 10*3/uL 150-450 [facility] Potassium [Moles/volume] in Serum or PlasmaOrdered By: Nicole Posadas on 11-09-2022 Potassium [Moles/Vol] 3.7 mmol/L 3.5-5.1 [facility] Protein Auto test strip (U) [Mass/Vol]Ordered By: Nicole Posadas on 11-09-2022 Protein (U) [Mass/Vol] Negative Negative [facility] Protein [Mass/volume] in Ser um or PlasmaOrdered By: Nicole Posadas on 11-09-2022 Protein [Mass/Vol] 7.1 g/dL 6.4-8.9 [facility] RBC Auto (Bld) [#/Vol]Ordere d By: Nicole Posadas on 11-09-2022 RBC (Bld) [#/Vol] 4.52 10*6/uL 3.60-5.00 [facility] Serum or plasma albumin/glob ulin mass ratioOrdered By: Nicole Posadas on 11-09-2022 Albumin/Globulin [Mass ratio] 1.6 {ratio} [facility] Serum or plasma anion gap de terminationOrdered By: Nicole Posadas on 11-09-2022 Anion gap [Moles/Vol] 8.1 mmol/L 6.0-15.0 [facility] Sodium [Moles/volume] in Ser um or PlasmaOrdered By: Nicole Posadas on 11-09-2022 Sodium [Moles/Vol] 140 mmol/L 136-145 [facility] Specific gravity Auto test s trip (U) [Rel density]Ordered By: Nicole Posadas on 11-09-2022 Specific gravity (U) [Rel density] 1.012 1.001-1.03 0 [facility] Troponin I.cardiac [Mass/vol ume] in Serum or Plasma by Detection limit <= 0.01 ng/Ordered By: Nicole Posadas on 11-09-2022 Troponin I.cardiac DL <= 0.01 ng/mL [Mass/Vol] 3.0 pg/mL 0.0-15.0 [facility] Urea nitrogen [Mass/volume] in Serum or PlasmaOrdered By: Nicole Posadas on 11-09-2022 Urea nitrogen [Mass/Vol] 6 mg/dL 7-25 [facility] Urine clarity by refractomet ry automatedOrdered By: Nicole Posadas on 11-09-2022 Clarity Refractometry automated (U) Clear Clear [facility] Urine glucose measurement by automated test strip (mass/volume)Ordered By: Nicole Posadas on 11-09-2022 Glucose Auto test strip (U) [Mass/Vol] Normal mg/dL Normal [facility] Urine hemoglobin detection b y automated test stripOrdered By: Nicole Posadas on 11-09-2022 Hemoglobin Auto test strip Ql (U) Negative Negative [facility] Urine leukocyte esterase det ection by automated test stripOrdered By: Nicole Posadas on 11-09-2022 Leukocyte esterase Auto test strip Ql (U) Negative Negative [facility] Urobilinogen Auto test strip (U) [Mass/Vol]Ordered By: Nicole Posadas on 11-09-2022 Urobilinogen (U) [Mass/Vol] Normal mg/dL Normal [facility] WBC Auto (Bld) [#/Vol]Ordere d By: Nicole Posadas on 11-09-2022 WBC (Bld) [#/Vol] 9.3 10*3/uL 3.8-11.6 [facility] pH Auto test strip (U)Ordere d By: Nicole Posadas on 11-09-2022 pH (U) 5.5 [pH] 5.0-9.0 [facility] UPPER EUSon 08-12-2022 [facility] Patient Name: Chioma Rainey Procedure Date: 08/12/2022 11:09 AM Date of : 1970 Admit Type: Outpatient Age: 52 Room: EUS Proc Room 01 Gender: Female Note Status: Finalized Attending MD: Sabrina Dee MD, MPH, [id number] Procedure: Upper EUS Indications: Chronic pancreatitis, Epigastric abdominal pain, Celiac plexus block for pain secondary to chronic pancreatitis, Dysphagia, Follow-up of esophageal stenosis, For therapy of esophageal stenosis Providers: Sabrina Dee MD, MPH (Doctor), Kolby Gifford RN (Nurse), Elba Faustin (Nurse), Mary Gaviria, Night Shift Supervisor (Night Shift Supervisor) Referring MD: Alexander Nichols MD (Referring MD) [...] by the physician, the nurse and the director of donor relations in the procedure room. Mental Status Examination: [...] abnor (more content not included)... LAB, U [facility] Radiology Study observation (narrative) [facility] AMYLASEon 06-13-2022 Amylase [Catalytic activity/Vol] 92 U/L Normal 25-115 [facility] Comment on above: Performed By: #### L IPA, CMP, CRP, NAT #### [facility] [address] [place] [address] Dr. Keturah Fisher CBC AUTO DIFFon 06-13-2022 BASO # 0.1 103/ul Normal 0.0-0.1 [facility] Comment on above: Performed By: #### L IPA, CMP, CRP, NAT #### [facility] [address] [place] [address] Dr. Keturah Fisher Basophils/100 WBC (Bld) 0.7 % Normal 0.2-2.0 [facility] Comment on above: Performed By: #### L IPA, CMP, CRP, NAT #### [facility] [address] [place] [address] Dr. Keturah Fisher EO # 0.1 103/ul Normal 0.0-0.7 [facility] Comment on above: Performed By: #### L IPA, CMP, CRP, NAT #### [facility] [address] [place] [address] Dr. Keturah Fisher Eosinophils/100 WBC (Bld) 1.1 % Normal 0.9-7.0 [facility] Comment on above: Performed By: #### L IPA, CMP, CRP, NAT #### [facility] [address] [place] [address] Dr. Keturah Fisher Erythrocyte distribution width (RBC) [Ratio] 13.0 % Normal 11.0-15.0 [facility] Comment on above: Performed By: #### L IPA, CMP, CRP, NAT #### [facility] [address] [place] [address] Dr. Keturah Fisher Hematocrit (Bld) [Volume fraction] 40.5 % Normal 36.0-48.0 [facility] Comment on above: Performed By: #### L IPA, CMP, CRP, NAT #### [facility] [address] [place] [address] Dr. Keturah Fisher Hemoglobin (Bld) [Mass/Vol] 13.9 g/dL Normal 12.0-16.0 [facility] Comment on above: Performed By: #### L IPA, CMP, CRP, NAT #### [facility] [address] [place] [address] Dr. Keturah Fisher IG # 0.03 10e3/ul Normal 0.00-0.03 [facility] Comment on above: Performed By: #### L IPA, CMP, CRP, NAT #### [facility] [address] [place] [address] Dr. Keturah Fisher IG % 0.3 % Normal 0.0-0.5 [facility] Comment on above: Performed By: #### L IPA, CMP, CRP, NAT #### [facility] [address] [place] [address] Dr. Keturah Fisher LYMPH # 2.9 103/ul Normal 1.2-3.8 [facility] Comment on above: Performed By: #### L IPA, CMP, CRP, NAT #### [facility] [address] [place] [address] Dr. Keturah Fisher Lymphocytes/100 WBC (Bld) 25.0 % Normal 20.5-60.0 [facility] Comment on above: Performed By: #### L IPA, CMP, CRP, NAT #### [facility] [address] [place] [address] Dr. Keturah Fisher MANUAL DIFF REQ NO Normal [facility] Comment on above: Performed By: #### L IPA, CMP, CRP, NAT #### [facility] [address] [place] [address] Dr. Keturah Fisher MCH (RBC) [Entitic mass] 33.3 pg Normal 26.7-34.0 [facility] Comment on above: Performed By: #### L IPA, CMP, CRP, NAT #### [facility] [address] [place] [address] Dr. Keturah Fisher MCHC (RBC) [Mass/Vol] 34.3 g/dL Normal 29.9-35.2 [facility] Comment on above: Performed By: #### L IPA, CMP, CRP, NAT #### [facility] [address] [place] [address] Dr. Keturah Fisher MCV (RBC) [Entitic vol] 96.9 fL Normal 81.0-99.0 [facility] Comment on above: Performed By: #### L IPA, CMP, CRP, NAT #### [facility] [address] [place] [address] Dr. Keturah Fisher MONO # 0.7 103/ul Normal 0.3-0.8 [facility] Comment on above: Performed By: #### L IPA, CMP, CRP, NAT #### [facility] [address] [place] [address] Dr. Keturah Fisher Monocytes/100 WBC (Bld) 5.6 % Normal 1.7-12.0 [facility] Comment on above: Performed By: #### L IPA, CMP, CRP, NAT #### [facility] [address] [place] [address] Dr. Keturah Fisher NEUT # 7.8 103/ul Critically high 1.4-6.5 [facility] Comment on above: Performed By: #### L IPA, CMP, CRP, NAT #### [facility] [address] [place] [address] Dr. Keturah Fisher Neutrophils/100 WBC (Bld) 67.3 % Normal 43.0-75.0 [facility] Comment on above: Performed By: #### L IPA, CMP, CRP, NAT #### [facility] [address] [place] [address] Dr. Keturah Fisher Platelet mean volume (Bld) [Entitic vol] 9.5 fL Normal 9.5-13.5 [facility] Comment on above: Performed By: #### L IPA, CMP, CRP, NAT #### [facility] [address] [place] [address] Dr. Keturah Fisher PLT 227 103/ul Normal 150-450 [facility] Comment on above: Performed By: #### L IPA, CMP, CRP, NAT #### [facility] [address] [place] [address] Dr. Keturah Fisher RBC 4.18 106/ul Critically low 4.20-5.40 [facility] Comment on above: Performed By: #### L IPA, CMP, CRP, NAT #### [facility] [address] [place] [address] Dr. Keturah Fisher WBC 11.5 103/ul Critically high 4.0-11.0 [facility] Comment on above: Performed By: #### L IPA, CMP, CRP, NAT #### [facility] [address] [place] [address] Dr. Keturah Fisher LIPASEon 06-13-2022 Lipase [Catalytic activity/Vol] 168.0 U/L Normal 73.0-393.0 [facility] Comment on above: Performed By: #### L IPA, CMP, CRP, NAT #### [facility] [address] [place] [address] Dr. Keturah Fisher PROF 14(COMP METB)on 023 Albumin [Mass/Vol] 3.6 g/dL Normal 3.4-5.0 [facility] Comment on above: Performed By: #### L IPA, CMP, CRP, NAT #### [facility] [address] [address] [address] Keturah Fisher Albumin/Globulin [Mass ratio] 1.1 {ratio} Normal [facility] Comment on above: Performed By: #### L IPA, CMP, CRP, NAT #### [facility] [address] [place] [address] Dr. Keturah Fisher ALP [Catalytic activity/Vol] 132 U/L Critically high 46-116 [facility] Comment on above: Performed By: #### L IPA, CMP, CRP, NAT #### [facility] [address] [place] [address] Dr. Keturah Fisher ALT [Catalytic activity/Vol] 20 U/L Normal 14-59 [facility] Comment on above: Performed By: #### L IPA, CMP, CRP, NAT #### [facility] [address] [address] [address] Keturah Fisher Anion gap [Moles/Vol] 13.7 mmol/L Normal [facility] Comment on above: Performed By: #### L IPA, CMP, CRP, NAT #### [facility] [address] [place] [address] Dr. Keturah Fisher AST [Catalytic activity/Vol] 19 U/L Normal 15-37 [facility] [facility] Comment on above: Performed By: #### L IPA, CMP, CRP, NAT #### [facility] [address] [address] [address] Keturah Fisher Bilirubin [Mass/Vol] 0.1 mg/dL Critically low 0.2-1.0 [facility] Comment on above: Performed By: #### L IPA, CMP, CRP, NAT #### [facility] [address] [place] [address] Dr. Keturah Fisher Calcium [Mass/Vol] 10.1 mg/dL Normal 8.5-10.1 [facility] Comment on above: Performed By: #### L IPA, CMP, CRP, NAT #### [facility] [address] [place] [address] Dr. Keturah Fisher Chloride [Moles/Vol] 104 mmol/L Normal 98-107 [facility] Comment on above: Performed By: #### L IPA, CMP, CRP, NAT #### [facility] [address] [place] [address] Dr. Keturah Fisher CO2 [Moles/Vol] 26.7 mmol/L Normal 21.0-32.0 [facility] Comment on above: Performed By: #### L IPA, CMP, CRP, NAT #### [facility] [address] [place] [address] Dr. Keturah Fisher Creatinine [Mass/Vol] 0.83 mg/dL Normal 0.55-1.02 [facility] Comment on above: Performed By: #### L IPA, CMP, CRP, NAT #### [facility] [address] [place] [address] Dr. Keturah Fisher EGFR-AF NAMIBIAN >60 Normal >=60 [facility] Comment on above: Performed By: #### L IPA, CMP, CRP, NAT #### [facility] [address] [place] [address] Dr. Keturah Fisher EGFR-NON AF NAMIBIAN >60 Normal >=60 [facility] Comment on above: Performed By: #### L IPA, CMP, CRP, NAT #### [facility] [address] [place] [address] Dr. Keturah Fisher Globulin (S) [Mass/Vol] 3.4 g/dL Normal [facility] Comment on above: Performed By: #### L IPA, CMP, CRP, NAT #### [facility] [address] [place] [address] Dr. Keturah Fisher Glucose [Mass/Vol] 115 mg/dL Critically high 74-106 T [facility] Comment on above: Performed By: #### L IPA, CMP, CRP, NAT #### [facility] [address] [place] [address] Dr. Keturah Fisher Potassium [Moles/Vol] 3.4 mmol/L Critically low 3.5-5.1 [facility] Comment on above: Performed By: #### L IPA, CMP, CRP, NAT #### [facility] [address] [address] [address] Keturah Fisher Protein [Mass/Vol] 7.0 g/dL Normal 6.4-8.2 [facility] Comment on above: Performed By: #### L IPA, CMP, CRP, NAT #### [facility] [address] [address] [address] Keturah Fisher Sodium [Moles/Vol] 141 mmol/L Normal 136-145 [facility] Comment on above: Performed By: #### L IPA, CMP, CRP, NAT #### [facility] [address] [address] [address] Keturah Fisher Urea nitrogen [Mass/Vol] 9.0 mg/dL Normal 7.0-18.0 [facility] Comment on above: Performed By: #### L IPA, CMP, CRP, NAT #### [facility] [address] [address] [address] Keturah Fisher Urea nitrogen/Creatinine [Mass ratio] 10.8 mg/mg Normal [facility] Comment on above: Performed By: #### L IPA, CMP, CRP, NAT #### [facility] [address] [address] [address] Keturah Fisher XR ABD FLAT UP_PA [...] ION KRUSE Date: 2022-06-13 17:10 Normal [facility] AMYLASEon 03-29-2022 Amylase [Catalytic activity/Vol] 141 U/L Critically high 25-115 [facility] Comment on above: Performed By: #### L IVER, REBECAA, BMP, NAT ####[facility] [address] [address]Dr. Keturah Fisher CBC AUTO DIFFon 03-29-2022 BASO # 0.1 103/ul Normal 0.0-0.1 [facility] Comment on above: Performed By: #### L IPA, CMP, CRP, NAT #### [facility] [address] [address] [address] Keturah Fisher Basophils/100 WBC (Bld) 0.6 % Normal 0.2-2.0 [facility] Comment on above: Performed By: #### L IPA, CMP, CRP, NAT #### [facility] [address] [place] [address] Dr. Keturah Fisher EO # 0.1 103/ul Normal 0.0-0.7 [facility] Comment on above: Performed By: #### L IPA, CMP, CRP, NAT #### [facility] [address] [address] [address] Keturah Fisher Eosinophils/100 WBC (Bld) 0.7 % Critically low 0.9-7.0 [facility] Comment on above: Performed By: #### L IPA, CMP, CRP, NAT #### [facility] [address] [place] [address] Dr. Keturah Fisher Erythrocyte distribution width (RBC) [Ratio] 12.9 % Normal 11.0-15.0 [facility] Comment on above: Performed By: #### L IPA, CMP, CRP, NAT #### [facility] [address] [place] [address] Dr. Keturah Fisher Hematocrit (Bld) [Volume fraction] 39.7 % Normal 36.0-48.0 [facility] Comment on above: Performed By: #### L IPA, CMP, CRP, NAT #### [facility] [address] [place] [address] Dr. Keturah Fisher Hemoglobin (Bld) [Mass/Vol] 14.7 g/dL Normal 12.0-16.0 [facility] Comment on above: Performed By: #### L IPA, CMP, CRP, NAT #### [facility] [address] [address] [address] Keturah Fisher IG # 0.04 10e3/ul Critically high 0.00-0.03 [facility] Comment on above: Performed By: #### L IPA, CMP, CRP, NAT #### [facility] [address] [place] [address] Dr. Keturah Fisher IG % 0.4 % Normal 0.0-0.5 [facility] Comment on above: Performed By: #### L IPA, CMP, CRP, NAT #### [facility] [address] [place] [address] Dr. Keturah Fisher LYMPH # 2.1 103/ul Normal 1.2-3.8 [facility] Comment on above: Performed By: #### L IPA, CMP, CRP, NAT #### [facility] [address] [place] [address] Dr. Keturah Fisher Lymphocytes/100 WBC (Bld) 21.2 % Normal 20.5-60.0 [facility] Comment on above: Performed By: #### L IPA, CMP, CRP, NAT #### [facility] [address] [place] [address] Dr. Keturah Fisher MANUAL DIFF REQ NO Normal [facility] Comment on above: Performed By: #### L IPA, CMP, CRP, NAT #### [facility] [address] [place] [address] Dr. Keturah Fisher MCH (RBC) [Entitic mass] 33.0 pg Normal 26.7-34.0 [facility] Comment on above: Performed By: #### L IPA, CMP, CRP, NAT #### [facility] [address] [place] [address] Dr. Keturah Fisher MCHC (RBC) [Mass/Vol] 37.0 g/dL Critically high 29.9-35.2 [facility] Comment on above: Performed By: #### L IPA, CMP, CRP, NAT #### [facility] [address] [place] [address] Dr. Keturah Fisher MCV (RBC) [Entitic vol] 89.0 fL Normal 81.0-99.0 [facility] Comment on above: Performed By: #### L IPA, CMP, CRP, NAT #### [facility] [address] [place] [address] Dr. Keturah Fisher MONO # 1.0 103/ul Critically high 0.3-0.8 [facility] Comment on above: Performed By: #### L IPA, CMP, CRP, NAT #### [facility] [address] [place] [address] Dr. Keturah Fisher Monocytes/100 WBC (Bld) 10.3 % Normal 1.7-12.0 [facility] Comment on above: Performed By: #### L IPA, CMP, CRP, NAT #### [facility] [address] [place] [address] Dr. Keturah Fisher NEUT # 6.5 103/ul Normal 1.4-6.5 [facility] Comment on above: Performed By: #### L IPA, CMP, CRP, NAT #### [facility] [address] [place] [address] Dr. Keturah Fisher Neutrophils/100 WBC (Bld) 66.8 % Normal 43.0-75.0 [facility] Comment on above: Performed By: #### L IPA, CMP, CRP, NAT #### [facility] [address] [place] [address] Dr. Keturah Fisher Platelet mean volume (Bld) [Entitic vol] 9.2 fL Critically low 9.5-13.5 [facility] Comment on above: Performed By: #### L IPA, CMP, CRP, NAT #### [facility] [address] [place] [address] Dr. Keturah Fisher PLT 229 103/ul Normal 150-450 [facility] Comment on above: Performed By: #### L IPA, CMP, CRP, NAT #### [facility] [address] [place] [address] Dr. Keturah Fisher RBC 4.46 106/ul Normal 4.20-5.40 [facility] Comment on above: Performed By: #### L IPA, CMP, CRP, NAT #### [facility] [address] [address] [address] Keturah Fisher WBC 9.7 103/ul Normal 4.0-11.0 [facility] Comment on above: Performed By: #### L IPA, CMP, CRP, NAT #### [facility] [address] [address] [address] Keturah Fisher LACTATE/LACTIC ACIDon 2022 Lactate [Moles/Vol] 0.5 mmol/L Normal 0.4-1.9 [facility] Comment on above: Performed By: #### L IPA, CMP, CRP, NAT #### [facility] [address] [place] [address] Dr. Keturah Fisher LIPASEon 03-29-2022 Lipase [Catalytic activity/Vol] 308.0 U/L Normal 73.0-393.0 [facility] Comment on above: Performed By: #### L IVER, LIPA, BMP, NAT ####[facility] [address] [address]DrGopal Fisher LIVER PROFILEon 03-29-2022 Albumin [Mass/Vol] 3.3 g/dL Critically low 3.4-5.0 [facility] Comment on above: Performed By: #### L IVER, LIPA, BMP, NAT ####[facility] [address] [address]Dr. Keturah Fisher Albumin/Globulin [Mass ratio] 0.8 {ratio} Normal [facility] Comment on above: Performed By: #### L IVER, LIPA, BMP, NAT ####[facility] [address] [address]Dr. Keturah Fisher ALP [Catalytic activity/Vol] 182 U/L Critically high 46-116 [facility] Comment on above: Performed By: #### L IVER, LIPA, BMP, NAT ####[facility] [address] [place], [place] [address]Dr. Keturah Fisher ALT [Catalytic activity/Vol] 16 U/L Normal 14-59 [facility] Comment on above: Performed By: #### L IVER, LIPA, BMP, NAT ####[facility] [address] [place], [place] [address]Dr. Keturah Fisher AST [Catalytic activity/Vol] 26 U/L Normal 15-37 [facility] Comment on above: Performed By: #### L IVER, LIPA, BMP, NAT ####[facility] [address] [place], [place] [address]Dr. Keturah Fisher BILI, CONJUGATED 0.0 mg/dL Normal 0.0-0.2 [facility] Comment on above: Performed By: #### L IVER, LIPA, BMP, NAT ####[facility] [address] [place], [place] [address]Dr. Keturah Fisher Bilirubin [Mass/Vol] 0.3 mg/dL Normal 0.2-1.0 [facility] Comment on above: Performed By: #### L IVER, LIPA, BMP, NAT ####[facility] [address] [place], [place] [address]Dr. Keturah Fisher Globulin (S) [Mass/Vol] 3.9 g/dL Normal [facility] Comment on above: Performed By: #### L IVER, LIPA, BMP, NAT ####[facility] [address] [place], [place] [address]Dr. Keturah Fisher Protein [Mass/Vol] 7.2 g/dL Normal 6.4-8.2 [facility] Comment on above: Performed By: #### L IVER, LIPA, BMP, NAT ####[facility] [address] [place], [place] [address]Dr. Keturah Fisher PROF CHEM 8 (BAS METB)on Anion gap [Moles/Vol] 14.6 mmol/L Normal [facility] Comment on above: Performed By: #### L IVER, LIPA, BMP, NAT ####[facility] [address] [address]Dr. Keturah Fisher Calcium [Mass/Vol] 10.1 mg/dL Normal 8.5-10.1 [facility] Comment on above: Performed By: #### L IVER, LIPA, BMP, NAT ####[facility] [address] [address]Dr. Keturah Fisher Chloride [Moles/Vol] 104 mmol/L Normal 98-107 [facility] Comment on above: Performed By: #### L IVER, LIPA, BMP, NAT ####[facility] [address] [place], [place] [address]Dr. Keturah Fisher CO2 [Moles/Vol] 24.8 mmol/L Normal 21.0-32.0 [facility] Comment on above: Performed By: #### L IVER, LIPA, BMP, NAT ####[facility] [address] [place], [place] [address]Dr. Keturah Fisher Creatinine [Mass/Vol] 0.61 mg/dL Normal 0.55-1.02 [facility] Comment on above: Performed By: #### L IVER, LIPA, BMP, NAT ####[facility] [address] [place], [place] [address]Dr. Keturah Fisher EGFR-AF NAMIBIAN >60 Normal >=60 [facility] Comment on above: Performed By: #### L IVER, LIPA, BMP, NAT ####[facility] [address] [place], [place] [address]Dr. Keturah Fisher EGFR-NON AF NAMIBIAN >60 Normal >=60 [facility] Comment on above: Performed By: #### L IVER, LIPA, BMP, NAT ####[facility] [address] [place], [place] [address]Dr. Keturah Fisher Glucose [Mass/Vol] 98 mg/dL Normal 74-106 [facility] Comment on above: Performed By: #### L IVER, LIPA, BMP, NAT ####[facility] [address] [place], [place] [address]Dr. Keturah Fisher Potassium [Moles/Vol] 4.4 mmol/L Normal 3.5-5.1 [facility] Comment on above: Performed By: #### L ROB CHIN BMP, NAT ####[facility] [address] [id number]. Keturah Fisher Sodium [Moles/Vol] 139 mmol/L Normal 136-145 [facility] Comment on above: Performed By: #### L ROB CHIN BMP, NAT ####[facility] [address] [place], [place] [address]Mc. Keturah Fisher Urea nitrogen [Mass/Vol] 7.0 mg/dL Normal 7.0-18.0 [facility] Comment on above: Performed By: #### ROB DOUGHERTY BMP, NAT ####[facility] [address] [id number]. Keturah Fisher Urea nitrogen/Creatinine [Mass ratio] 11.5 mg/mg Normal [facility] Comment on above: Performed By: #### ROB DOUGHERTY BMP, NAT ####[facility] [address] [id number]. Keturah Fisher Albumin [Mass/volume] in Ser um or PlasmaOrdered By: Agustin Llanes on 03-22-2022 Albumin [Mass/Vol] 4.1 g/dL 3.2-5.5 [facility] Automated erythrocytes count in urine sediment (number/area)Ordered By: Agustin Llanes on 03-22-2022 RBC Auto (Urine sed) [#/Area] 3-4 [HPF] 0-4 [facility] Automated leukocytes count i n urine sediment (number/area)Ordered By: Agustin Llanes on 03-22-2022 WBC Auto (Urine sed) [#/Area] 10-19 [HPF] 0-4 [facility] Basophils Auto (Bld) [#/Vol] Ordered By: Agustin Llanes on 03-22-2022 Basophils (Bld) [#/Vol] 0.1 10*3/uL 0.0-0.2 [facility] Basophils/100 WBC Auto (Bld) Ordered By: Agustin Llanes on 01-14-2023 Basophils/100 WBC (Bld) 0.9 % . [facility] Bilirubin Test strip Ql (U)O rdered By: Agustin Llanes on 03-22-2022 Bilirubin Ql (U) Negative Negative [facility] Color Auto (U)Ordered By: Vita Llanes on 03-22-2022 Color (U) Yellow Yellow [facility] Creatinine and Glomerular fi ltration rate.predicted panel (S/P/Bld)Ordered By: Agustin Llanes on 03-22-2022 Creatinine [Mass/Vol] 0.74 mg/dL 0.44-1.03 [facility] Direct bilirubin measurement Ordered By: Agustin Llanes on 03-22-2022 Bilirubin.direct [Mass/Vol] 0.3 mg/dL 0.0-0.4 [facility] Eosinophils Auto (Bld) [#/Vo l]Ordered By: Agustin Llanes on 03-22-2022 Eosinophils (Bld) [#/Vol] 0.1 10*3/uL 0.0-0.45 [facility] Eosinophils/100 WBC Auto (Bl d)Ordered By: Agustin Llanes on 03-22-2022 Eosinophils/100 WBC (Bld) 0.7 % . [facility] Erythrocyte distribution wid th Auto (RBC) [Ratio]Ordered By: Agustin Llanes on 03-22-2022 Erythrocyte distribution width (RBC) [Ratio] 13.9 % 11.9-15.3 [facility] Estimated glomerular filtrat ion rate (GFR) non- AmericanOrdered By: Agustin Llanes on 03-22-2022 GFR/1.73 sq M.predicted among non-blacks MDRD (S/P/Bld) [Vol rate/Area] > 60 mL/Min [facility] Globulin Calc (S) [Mass/Vol] Ordered By: Agustin Llanes on 03-22-2022 Globulin (S) [Mass/Vol] 3.1 g/dL [facility] HCG ( test) IA.rapi d Ql (U)Ordered By: Agustin Llanes on 03-22-2022 HCG ( test) Ql (U) Negative [facility] Hematocrit Auto (Bld) [Volum e fraction]Ordered By: Agustin Llanes on 03-22-2022 Hematocrit (Bld) [Volume fraction] 45.7 % 34.0-46.4 [facility] Hemoglobin [Mass/volume] in BloodOrdered By: Agustin Llanes on 03-22-2022 Hemoglobin (Bld) [Mass/Vol] 15.2 g/dL 11.8-15.4 [facility] Ketones Auto test strip (U) [Mass/Vol]Ordered By: Agustin Llanes on 03-22-2022 Ketones (U) [Mass/Vol] Negative Negative [facility] - Chemistry and C hemistry - challengeOrdered By: Agustin Llanes on 03-22-2022 Lipase [Catalytic activity/Vol] 122.0 U/L 22-51 [facility] - UrinalysisOrder ed By: Agustin Llanes on 03-22-2022 Hyaline casts LM Ql (Urine sed) 0-8 [LPF] 0-8 [facility] Leukocytes [#/volume] correc aurelia for nucleated erythrocytes in Blood by Automated counOrdered By: Agustin Llanes on 03-22-2022 WBC corrected for nucl RBC Auto (Bld) [#/Vol] 12.4 10*3/uL 3.8-11.6 [facility] Lymphocytes Auto (Bld) [#/Vo l]Ordered By: Agustin Llanes on 03-22-2022 Lymphocytes (Bld) [#/Vol] 2.2 10*3/uL 1.00-4.8 [facility] Lymphocytes/100 WBC Auto (Bl d)Ordered By: Agustin Llanes on 03-22-2022 Lymphocytes/100 WBC (Bld) 18.0 % . [facility] MCH Auto (RBC) [Entitic mass ]Ordered By: Agustin Llanes on 03-22-2022 MCH (RBC) [Entitic mass] 32.5 pg 24.7-34.3 [facility] MCHC Auto (RBC) [Mass/Vol]Or dered By: Agustin Llanes on 03-22-2022 MCHC (RBC) [Mass/Vol] 33.2 g/dL 32.0-35.0 [facility] MCV Auto (RBC) [Entitic vol] Ordered By: Agustin Llanes on 03-22-2022 MCV (RBC) [Entitic vol] 98.0 fL 80-100 [facility] Monocyte distribution width [Entitic volume] in Blood by AutomatedOrdered By: Agustin Llanes on 03-22-2022 Monocyte distribution width Auto (Bld) [Entitic vol] 18.78 % 0.00-20.00 [facility] Monocytes Auto (Bld) [#/Vol] Ordered By: Agustin Llanes on 03-22-2022 Monocytes (Bld) [#/Vol] 1.0 10*3/uL 0.0-0.8 [facility] Monocytes/100 WBC Auto (Bld) Ordered By: Agustin Llanes on 03-22-2022 Monocytes/100 WBC (Bld) 8.0 % . [facility] Neutrophils Auto (Bld) [#/Vo l]Ordered By: Agustin Llanes on 03-22-2022 Neutrophils (Bld) [#/Vol] 9.0 10*3/uL 1.8-7.7 [facility] Neutrophils/100 WBC Auto (Bl d)Ordered By: Agustin Llanes on 03-22-2022 Neutrophils/100 WBC (Bld) 72.4 % . [facility] Nitrite Test strip Ql (U)Ord ered By: Agustin Llanes on 03-22-2022 Nitrite Ql (U) Positive Negative [facility] No Panel InformationOrdered By: Agustin Llanes on 03-22-2022 Estimated GFR () > 60 mL/Min [facility] Comment on above: GFR estimated refere nce range: According to KDOQI guidelines, <60 ml/min/1.73m2 is sufficient to diagnose a patient with chronic kidney disease. Pharmacy Creatinine Clearance (Chem 70.34 [facility] Nucleated erythrocytes [Pres ence] in Blood by Automated countOrdered By: Agustin Llanes on 03-22-2022 Nucleated RBC Auto Ql (Bld) 0.0 /100{WBC} 0-0.5 [facility] Platelet mean volume Auto (B ld) [Entitic vol]Ordered By: Agustin Llanes on 03-22-2022 Platelet mean volume (Bld) [Entitic vol] 8.0 fL 6.3-10.7 [facility] Platelets Auto (Bld) [#/Vol] Ordered By: Agustin Llanes on 03-22-2022 Platelets (Bld) [#/Vol] 266 10*3/uL 150-450 [facility] Protein Auto test strip (U) [Mass/Vol]Ordered By: Agustin Llanes on 03-22-2022 Protein (U) [Mass/Vol] Negative Negative [facility] Protein [Mass/volume] in Ser um or PlasmaOrdered By: Agustin Llanes on 03-22-2022 Protein [Mass/Vol] 7.2 g/dL 6.1-7.9 [facility] RBC Auto (Bld) [#/Vol]Ordere d By: Agustin Llanes on 03-22-2022 RBC (Bld) [#/Vol] 4.67 10*6/uL 3.60-5.00 [facility] Serum or plasma alanine hughes otransferase measurement without P-5'-P (enzymatic activiOrdered By: Agustin Llanes on 03-22-2022 ALT No additional P-5'-P [Catalytic activity/Vol] 19 U/L 10-60 [facility] Serum or plasma albumin/glob ulin mass ratioOrdered By: Agustin Llanes on 03-22-2022 Albumin/Globulin [Mass ratio] 1.3 {ratio} [facility] Serum or plasma alkaline jaqueline sphatase measurement (enzymatic activity/volume)Ordered By: Agustin Llanes on 03-22-2022 ALP [Catalytic activity/Vol] 156 U/L 32-92 [facility] Serum or plasma anion gap de terminationOrdered By: Agustin Llanes on 03-22-2022 Anion gap [Moles/Vol] 12.6 mmol/L 6.0-15.0 [facility] Serum or plasma aspartate am inotransferase measurement (enzymatic activity/volume)Ordered By: Agustin Llanes on 03-22-2022 AST [Catalytic activity/Vol] 29 U/L 10-42 [facility] Serum or plasma calcium priscilla urement (mass/volume)Ordered By: Agustin Llanes on 03-22-2022 Calcium [Mass/Vol] 9.9 mg/dL 8.2-10.2 [facility] Serum or plasma chloride daron surement (moles/volume)Ordered By: Agustin Llanes on 03-22-2022 Chloride [Moles/Vol] 103 mmol/L 95-114 [facility] Serum or plasma glucose priscilla urement (mass/volume)Ordered By: Agustin Llanes on 03-22-2022 Glucose [Mass/Vol] 106 mg/dL 70-100 [facility] Comment on above: ADA recommended refe rence rangeRandom Glucose Reference Range is dependent on time and content of last meal. Glucose of more than 200 mg/dL in a nonstressed, ambulatory subject supports the diagnosis of Diabetes Mellitus. Serum or plasma non-glucuron idated bilirubin measurement (mass/volume)Ordered By: Agustin Llanes on 03-22-2022 Bilirubin.indirect [Mass/Vol] 0.2 mg/dL [facility] Serum or plasma potassium me asurement (moles/volume)Ordered By: Agustin Llanes on 03-22-2022 Potassium [Moles/Vol] 4.5 mmol/L 3.5-5.1 [facility] Serum or plasma sodium measu rement (moles/volume)Ordered By: Agustin Llanes on 03-22-2022 Sodium [Moles/Vol] 138 mmol/L 136-146 [facility] Serum or plasma total biliru bin measurement (mass/volume)Ordered By: Agustin Llanes on 03-22-2022 Bilirubin [Mass/Vol] 0.5 mg/dL 0.3-1.2 [facility] Serum or plasma total carbon dioxide measurement (moles/volume)Ordered By: Agustin Llanes on 03-22-2022 CO2 [Moles/Vol] 26.9 mmol/L 22.0-30.0 [facility] Serum or plasma urea nitroge n measurement (mass/volume)Ordered By: Agustin Llanes on 03-22-2022 Urea nitrogen [Mass/Vol] 8 mg/dL 9-23 [facility] Specific gravity Auto test s trip (U) [Rel density]Ordered By: Agustin Llanes on 03-22-2022 Specific gravity (U) [Rel density] 1.011 1.001-1.03 0 [facility] Squamous epithelial cells de tection in urine sediment by light microscopyOrdered By: Agustin Llanes on 03-22-2022 Epithelial cells.squamous LM Ql (Urine sed) 1-2 [HPF] 0-2 [facility] Urine bacteria detection by automated methodOrdered By: Agustin Llanes on 03-22-2022 Bacteria Auto Ql (U) 1+ None Seen [facility] Urine clarity by refractomet ry automatedOrdered By: Agustin Llanes on 03-22-2022 Clarity Refractometry automated (U) Clear Clear [facility] Urine glucose measurement by automated test strip (mass/volume)Ordered By: Agustin Llanes on 03-22-2022 Glucose Auto test strip (U) [Mass/Vol] Normal mg/dL Normal [facility] Urine hemoglobin detection b y automated test stripOrdered By: Agustin Llanes on 03-22-2022 Hemoglobin Auto test strip Ql (U) Negative Negative [facility] Urine leukocyte esterase det ection by automated test stripOrdered By: Agustin Llanes on 03-22-2022 Leukocyte esterase Auto test strip Ql (U) 2+ Negative [facility] Urobilinogen Auto test strip (U) [Mass/Vol]Ordered By: Agustin Llanes on 03-22-2022 Urobilinogen (U) [Mass/Vol] Normal mg/dL Normal [facility] WBC Auto (Bld) [#/Vol]Ordere d By: Agustin Llanes on 03-22-2022 WBC (Bld) [#/Vol] 12.4 10*3/uL 3.8-11.6 [facility] pH Auto test strip (U)Ordere d By: Agustin Llanes on 03-22-2022 pH (U) 5.5 [pH] 5.0-9.0 [facility] AMYLASEon 03-19-2022 Amylase [Catalytic activity/Vol] 297 U/L Critically high 25-115 [facility] Comment on above: Performed By: #### L IPA, CMP, CRP, NAT #### [facility] [address] [address] [address] Keturah Fisher CBC AUTO DIFFon 03-19-2022 BASO # 0.1 103/ul Normal 0.0-0.1 [facility] Comment on above: Performed By: #### L IPA, CMP, CRP, NAT #### [facility] [address] [address] [address] Keturah Fisher Basophils/100 WBC (Bld) 0.6 % Normal 0.2-2.0 [facility] Comment on above: Performed By: #### L IPA, CMP, CRP, NAT #### [facility] [address] [place] [address] Dr. Keturah Fisher EO # 0.1 103/ul Normal 0.0-0.7 [facility] Comment on above: Performed By: #### L IPA, CMP, CRP, NAT #### [facility] [address] [place] [address] Dr. Keturah Fisher Eosinophils/100 WBC (Bld) 0.5 % Critically low 0.9-7.0 [facility] Comment on above: Performed By: #### L IPA, CMP, CRP, NAT #### [facility] [address] [place] [address] Dr. Keturah Fisher Erythrocyte distribution width (RBC) [Ratio] 13.4 % Normal 11.0-15.0 [facility] Comment on above: Performed By: #### L IPA, CMP, CRP, NAT #### [facility] [address] [place] [address] Dr. Keturah Fisher Hemoglobin (Bld) [Mass/Vol] 15.7 g/dL Normal 12.0-16.0 [facility] Comment on above: Performed By: #### L IPA, CMP, CRP, NAT #### [facility] [address] [place] [address] Dr. Keturah Fisher IG # 0.06 10e3/ul Critically high 0.00-0.03 [facility] Comment on above: Performed By: #### L IPA, CMP, CRP, NAT #### [facility] [address] [place] [address] Dr. Keturah Fisher IG % 0.4 % Normal 0.0-0.5 [facility] Comment on above: Performed By: #### L IPA, CMP, CRP, NAT #### [facility] [address] [place] [address] Dr. Keturah Fisher LYMPH # 2.6 103/ul Normal 1.2-3.8 [facility] Comment on above: Performed By: #### L IPA, CMP, CRP, NAT #### [facility] [address] [place] [address] Dr. Keturah Fisher Lymphocytes/100 WBC (Bld) 18.1 % Critically low 20.5-60.0 [facility] Comment on above: Performed By: #### L IPA, CMP, CRP, NAT #### [facility] [address] [place] [address] Dr. Keturah Fisher MANUAL DIFF REQ NO Normal [facility] Comment on above: Performed By: #### L IPA, CMP, CRP, NAT #### [facility] [address] [place] [address] Dr. Keturah Fisher MCH (RBC) [Entitic mass] 32.4 pg Normal 26.7-34.0 [facility] Comment on above: Performed By: #### L IPA, CMP, CRP, NAT #### [facility] [address] [place] [address] Dr. Keturah Fisher MCHC (RBC) [Mass/Vol] 32.5 g/dL Normal 29.9-35.2 [facility] Comment on above: Performed By: #### L IPA, CMP, CRP, NAT #### [facility] [address] [place] [address] Dr. Keturah Fisher MCV (RBC) [Entitic vol] 99.8 fL Critically high 81.0-99.0 [facility] Comment on above: Performed By: #### L IPA, CMP, CRP, NAT #### [facility] [address] [place] [address] Dr. Keturah Fisher MONO # 0.9 103/ul Critically high 0.3-0.8 [facility] Comment on above: Performed By: #### L IPA, CMP, CRP, NAT #### [facility] [address] [place] [address] Dr. Keturah Fisher Monocytes/100 WBC (Bld) 5.9 % Normal 1.7-12.0 [facility] Comment on above: Performed By: #### L IPA, CMP, CRP, NAT #### [facility] [address] [place] [address] Dr. Keturah Fisher NEUT # 10.8 103/ul Critically high 1.4-6.5 [facility] Comment on above: Performed By: #### L IPA, CMP, CRP, NAT #### [facility] [address] [place] [address] Dr. Keturah Fisher Neutrophils/100 WBC (Bld) 74.5 % Normal 43.0-75.0 [facility] Comment on above: Performed By: #### L IPA, CMP, CRP, NAT #### [facility] [address] [place] [address] Dr. Keturah Fisher Platelet mean volume (Bld) [Entitic vol] 9.7 fL Normal 9.5-13.5 [facility] Comment on above: Performed By: #### L IPA, CMP, CRP, NAT #### [facility] [address] [place] [address] Dr. Keturah Fisher PLT 279 103/ul Normal 150-450 [facility] Comment on above: Performed By: #### L IPA, CMP, CRP, NAT #### [facility] [address] [place] [address] Dr. Keturah Fisher RBC 4.84 106/ul Normal 4.20-5.40 [facility] Comment on above: Performed By: #### L IPA, CMP, CRP, NAT #### [facility] [address] [place] [address] Dr. Keturah Fisher WBC 14.5 103/ul Critically high 4.0-11.0 [facility] Comment on above: Performed By: #### L IPA, CMP, CRP, NAT #### [facility] [address] [place] [address] ABD/PELVIS WO CONon [...] AGUSTIN HIGHTOWER Date: 2022-03-19 19:10 Normal [facility] LIPASEon 03-19-2022 Lipase [Catalytic activity/Vol] 1573.0 U/L Critically high 73.0-393.0 [facility] Comment on above: Performed By: #### L IPA, CMP, CRP, NAT #### [facility] [address], [place] [address] Dr. Keturah Fisher PROF 14(COMP METB)on 023 Albumin [Mass/Vol] 4.3 g/dL Normal 3.4-5.0 [facility] Comment on above: Performed By: #### L IPA, CMP, CRP, NAT #### [facility] [address], [place] [address] Dr. Keturah Fisher Albumin/Globulin [Mass ratio] 1.1 {ratio} Normal [facility] Comment on above: Performed By: #### L IPA, CMP, CRP, NAT #### [facility] [address] [place] [address] Dr. Keturah Fisher ALP [Catalytic activity/Vol] 222 U/L Critically high 46-116 [facility] Comment on above: Performed By: #### L IPA, CMP, CRP, NAT #### [facility] [address] [place] [address] Dr. Keturah Fisher ALT [Catalytic activity/Vol] 18 U/L Normal 14-59 [facility] Comment on above: Performed By: #### L IPA, CMP, CRP, NAT #### [facility] [address] [place] [address] Dr. Keturah Fisher Anion gap [Moles/Vol] 10.7 mmol/L Normal [facility] Comment on above: Performed By: #### L IPA, CMP, CRP, NAT #### [facility] [address] [place] [address] Dr. Keturah Fisher AST [Catalytic activity/Vol] 19 U/L Normal 15-37 [facility] Comment on above: Performed By: #### L IPA, CMP, CRP, NAT #### [facility] [address] [place] [address] Dr. Keturah Fisher Bilirubin [Mass/Vol] 0.2 mg/dL Normal 0.2-1.0 [facility] Comment on above: Performed By: #### L IPA, CMP, CRP, NAT #### [facility] [address] [place] [address] Dr. Ketruah Fisher Calcium [Mass/Vol] 10.2 mg/dL Critically high 8.5-10.1 [facility] Comment on above: Performed By: #### L IPA, CMP, CRP, NAT #### [facility] [address] [place] [address] Dr. Keturah Fisher Chloride [Moles/Vol] 101 mmol/L Normal 98-107 [facility] Comment on above: Performed By: #### L IPA, CMP, CRP, NAT #### [facility] [address] [address] [address] Keturah Fisher CO2 [Moles/Vol] 29.1 mmol/L Normal 21.0-32.0 [facility] Comment on above: Performed By: #### L IPA, CMP, CRP, NAT #### [facility] [address] [address] [address] Keturah Fisher Creatinine [Mass/Vol] 0.73 mg/dL Normal 0.55-1.02 [facility] Comment on above: Performed By: #### L IPA, CMP, CRP, NAT #### [facility] [address] [address] [address] Keturah Fisher EGFR-AF NAMIBIAN >60 Normal >=60 [facility] Comment on above: Performed By: #### L IPA, CMP, CRP, NAT #### [facility] [address] [place] [address] Dr. Keturah Fisher EGFR-NON AF NAMIBIAN >60 Normal >=60 [facility] Comment on above: Performed By: #### L IPA, CMP, CRP, NAT #### [facility] [address] [address] [address] Keturah Fisher Globulin (S) [Mass/Vol] 4.0 g/dL Normal [facility] Comment on above: Performed By: #### L IPA, CMP, CRP, NAT #### [facility] [address] [address] [address] Keturah Fisher Glucose [Mass/Vol] 92 mg/dL Normal 74-106 [facility] Comment on above: Performed By: #### L IPA, CMP, CRP, NAT #### [facility] [address] [address] [address] Keturah Fisher Potassium [Moles/Vol] 3.8 mmol/L Normal 3.5-5.1 [facility] Comment on above: Performed By: #### L IPA, CMP, CRP, NAT #### [facility] [address] [address] [address] Keturah Fisher Protein [Mass/Vol] 8.3 g/dL Critically high 6.4-8.2 [facility] Comment on above: Performed By: #### L IPA, CMP, CRP, NAT #### [facility] [address] [address] [address] Keturah Fisher Sodium [Moles/Vol] 137 mmol/L Normal 136-145 [facility] Comment on above: Performed By: #### L IPA, CMP, CRP, NAT #### [facility] [address] [address] [address] Keturah Fisher Urea nitrogen [Mass/Vol] 10.0 mg/dL Normal 7.0-18.0 [facility] Comment on above: Performed By: #### L IPA, CMP, CRP, NAT #### [facility] [address] [address] [address] Keturah Fisher Urea nitrogen/Creatinine [Mass ratio] 13.7 mg/mg Normal [facility] Comment on above: Performed By: #### L IPA, CMP, CRP, NAT #### [facility] [address] [address] [address] Keturah Fisher PROTIMEon 03-19-2022 INR Coag (PPP) [Relative time] {INR} Normal [facility] Comment on above: Performed By: #### P TT, PT ####[facility] [address] [address]DrGopal Fisher INR GUIDELINES SEE BELOW Normal [facility] Comment on above: Result Comment: KARLY RED INR: 2.0 - 3.0 CONDITIONS NOT LISTED BELOW 2.5 - 3.5 FOR PROSTHETIC HEART VALVE REPLACEMENT 2.5 - 3.5 RECURRENT THROMBOSIS Performed By: #### P TT, PT ####[facility] [address] [address]Dr. Keturah Fisher PT Coag (PPP) [Time] 9.4 s Normal 9.0-11.6 [facility] Comment on above: Performed By: #### P TT, PT ####[facility] [address] [address]Dr. Keturah Fisher PTTon 03-19-2022 aPTT Coag (Bld) [Time] 26.1 s Normal 22.3-36.2 [facility] Comment on above: Performed By: #### P TT, PT ####[facility] [address] [place], [place] [address]WrDr. Keturah Fisher TROPONIN, HIGH SENSITIVITYon 03-19-2022 HSTROP 4.0 pg/mL Normal 4.0-51.3 [facility] Comment on above: Result Comment: CUT- OFF POINTS HAVE BEEN ESTABLISHED BASED ON THE FOURTH UNIVERSAL DEFINITIONS OF MYOCARDIAL INFARCTION. THE UPPER REFERENCE LIMIT (URL) OF TROPONIN, DEFINED THE 99TH PERCENTILE OF cTnI DISTRIBUTION IN A REFERENCE POPULATION, HAS BEEN CONFIRMED THE DECISION THRESHOLD FOR [place] DIAGNOSIS. Performed By: #### L IPA, CMP, CRP, NAT #### [facility] [address], [place] [address] Dr. 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 Mental Status [...] si (more content not included)... LAB, [facility] Radiology Study observation (narrative) [facility] BONE DENSITY AXIAL (HIP, PEL VIS, SPINE)on [...] interpreted this study is a Certified Clinical Nursing Informatics Specialist by the International Society of Clinical Densitometry Maulik Reed M.D., CCD. OLOGY EXAM: BONE DENSITY A XIAL (HIP, PELVIS, SPINE) 01/27/2022 15:34 PM TECHNIQUE: DXA scanning using a [employer] Advance bone densitometer at the [facility] was performed on 01/27/2022 15:34 [...] 15:34 PM TECHNIQUE: DXA scanning using a [employer] Advance bone densitometer at the [facility] was performed on 01/27/2022 15:34 [...] interpreted this study is a Certified Clinical Nursing Informatics Specialist by the International Society of Clinical Densitometry Maulik Reed M.D., [facility]. [facility] Radiology Study observation (narrative) [facility] BONE DENSITY AXIAL (HIP, PEL VIS, SPINE)Ordered By: Maulik Reed on 01-27-2022 [facility] Work Phone: CBC AUTO DIFFon 01-15-2022 BASO # 0.1 103/ul Normal 0.0-0.1 [facility] Comment on above: Performed By: #### C BC ####[facility] [address] [address]Dr. Keturah Fisher Basophils/100 WBC (Bld) 0.9 % Normal 0.2-2.0 [facility] Comment on above: Performed By: #### C BC ####[facility] [address] [place], [place] [address]Dr. Keturah Fisher EO # 0.2 103/ul Normal 0.0-0.7 [facility] Comment on above: Performed By: #### C BC ####[facility] [address] [address]Dr. Keturah Fisher Eosinophils/100 WBC (Bld) 2.8 % Normal 0.9-7.0 [facility] Comment on above: Performed By: #### C BC ####[facility] [address] [address]Dr. Keturah Fisher Erythrocyte distribution width (RBC) [Ratio] 12.9 % Normal 11.0-15.0 [facility] Comment on above: Performed By: #### C BC ####[facility] [address] [place], [place] [address]Dr. Keturah Fisher Hematocrit (Bld) [Volume fraction] 41.7 % Normal 36.0-48.0 [facility] Comment on above: Performed By: #### C BC ####[facility] [address] [id number] Keturah Fisher Hemoglobin (Bld) [Mass/Vol] 14.0 g/dL Normal 12.0-16.0 [facility] Comment on above: Performed By: #### C BC ####[facility] [address] [id number]. Keturah Fisher IG # 0.01 10e3/ul Normal 0.00-0.03 [facility] Comment on above: Performed By: #### C BC ####[facility] [address] [id number]. Keturah Fisher IG % 0.1 % Normal 0.0-0.5 [facility] Comment on above: Performed By: #### C BC ####[facility] [address] [address]Dr. Keturah Fisher LYMPH # 2.4 103/ul Normal 1.2-3.8 [facility] Comment on above: Performed By: #### C BC ####[facility] [address] [address]Dr. Keturah Fisher Lymphocytes/100 WBC (Bld) 32.0 % Normal 20.5-60.0 [facility] Comment on above: Performed By: #### C BC ####[facility] [address] [id number][address] Keturah Fisher MANUAL DIFF REQ NO Normal [facility] Comment on above: Performed By: #### C BC ####[facility] [address] [id number]. Keturah Fisher MCH (RBC) [Entitic mass] 32.6 pg Normal 26.7-34.0 [facility] Comment on above: Performed By: #### C BC ####[facility] [address] [id number]. Keturah Fisher MCHC (RBC) [Mass/Vol] 33.6 g/dL Normal 29.9-35.2 [facility] Comment on above: Performed By: #### C BC ####[facility] [address] [id number]. Keturah Fisher MCV (RBC) [Entitic vol] 97.0 fL Normal 81.0-99.0 [facility] Comment on above: Performed By: #### C BC ####[facility] [address] [address]Dr. Keturah Fisher MONO # 0.7 103/ul Normal 0.3-0.8 [facility] Comment on above: Performed By: #### C BC ####[facility] [address] [place], [place] [address]Dr. Keturah Phillip Monocytes/100 WBC (Bld) 9.5 % Normal 1.7-12.0 [facility] Comment on above: Performed By: #### C BC ####[facility] [address] [place], [place] [address]Dr. Keturah Fisher NEUT # 4.1 103/ul Normal 1.4-6.5 [facility] Comment on above: Performed By: #### C BC ####[facility] [address] [place], [place] [address]Dr. Keturah Phillip Neutrophils/100 WBC (Bld) 54.7 % Normal 43.0-75.0 [facility] Comment on above: Performed By: #### C BC ####[facility] [address] [place], [place] [address]Dr. Keturah Phillip Platelet mean volume (Bld) [Entitic vol] 9.6 fL Normal 9.5-13.5 [facility] Comment on above: Performed By: #### C BC ####[facility] [address] [place], [place] [address]Dr. Keturah Phillip PLT 235 103/ul Normal 150-450 [facility] Comment on above: Performed By: #### C BC ####[facility] [address] [place], [place] [address]Dr. Keturah Phillip RBC 4.30 106/ul Normal 4.20-5.40 [facility] Comment on above: Performed By: #### C BC ####[facility] [address] [place], [place] [address]Dr. Keturah Fisher WBC 7.6 103/ul Normal 4.0-11.0 [facility] Comment on above: Performed By: #### C BC ####[facility] [address] [address]Dr. Keturah Fisher ER URINE PROFILEon 2 Bilirubin Ql (U) Negative Normal NEGATIVE [facility] Comment on above: Performed By: #### L IPA, CMP, CRP, NAT #### [facility] [address] [address] [address] Keturah Fisher Clarity (U) CLEAR Normal CLEAR [facility] Comment on above: Performed By: #### L IPA, CMP, CRP, NAT #### [facility] [address] [address] [address] Keturah Fisher Color (U) YELLOW Normal YELLOW [facility] Comment on above: Performed By: #### L IPA, CMP, CRP, NAT #### [facility] [address] [place] [address] Dr. Keturah Fisher ERUAHD A micrscopic examina tion will be performed if indicated. Normal [facility] Comment on above: Performed By: #### L IPA, CMP, CRP, NAT #### [facility] [address] [address] [address] Keturah Fisher Glucose Ql (U) Negative Normal NEGATIVE [facility] Comment on above: Performed By: #### L IPA, CMP, CRP, NAT #### [facility] [address] [address] [address] Keturah Fisher Hemoglobin Ql (U) Negative Normal NEGATIVE [facility] Comment on above: Performed By: #### L IPA, CMP, CRP, NAT #### [facility] [address] [address] [address] Keturah Fisher Ketones Ql (U) Negative Normal NEGATIVE [facility] Comment on above: Performed By: #### L IPA, CMP, CRP, NAT #### [facility] [address] [address] [address] Keturah Fisher LEUKOCYTES Negative Normal NEGATIVE [facility] Comment on above: Performed By: #### L IPA, CMP, CRP, NAT #### [facility] [address] [address] [address] Keturah Fisher Nitrite Ql (U) Negative Normal NEGATIVE [facility] Comment on above: Performed By: #### L IPA, CMP, CRP, NAT #### [facility] [address] [address] [address] Keturah Fisher pH (U) 5.5 [pH] Normal 5-9 [facility] Comment on above: Performed By: #### L IPA, CMP, CRP, NAT #### [facility] [address] [place] [address] Dr. Keturah Fisher SPEC GRAVITY >=1.030 Abnormal 1.005-<=1. 025 [facility] Comment on above: Performed By: #### L IPA, CMP, CRP, NAT #### [facility] [address] [place] [address] Dr. Keturah Fisher UA PROTEIN Negative Normal NEGATIVE/ TRACE [facility] Comment on above: Performed By: #### L IPA, CMP, CRP, NAT #### [facility] [address] [place] [address] Dr. Keturah Fisher UR MICRO IND NOT INDICATED Normal [facility] Comment on above: Performed By: #### L IPA, CMP, CRP, NAT #### [facility] [address] [address] [address] Keturah Fisher Urobilinogen Qn (U) 0.2 {Marizol'U}/dL Normal 0.2 - 1. 0 [facility] Comment on above: Performed By: #### L IPA, CMP, CRP, NAT #### [facility] [address] [address] [address] Keturah Fisher LIPASEon 01-15-2022 Lipase [Catalytic activity/Vol] 572.0 U/L Critically high 73.0-393.0 [facility] Comment on above: Performed By: #### C BC #### [facility] [address] [address] [address] Keturah Fisher URon 01-15-2022 , QUAL Negative Normal NEGATIVE [facility] Comment on above: Performed By: #### L IPA, CMP, CRP, NAT #### [facility] [address] [place] [address] Dr. Keturah Fisher PROF 14(COMP METB)on 022 Albumin [Mass/Vol] 3.8 g/dL Normal 3.4-5.0 [facility] Comment on above: Performed By: #### C BC #### [facility] [address] [place] [address] Dr. Keturah Fisher Albumin/Globulin [Mass ratio] 1.1 {ratio} Normal [facility] Comment on above: Performed By: #### C BC #### [facility] [address] [place] [address] Dr. Keturah Fisher ALP [Catalytic activity/Vol] 151 U/L Critically high 46-116 [facility] Comment on above: Performed By: #### C BC #### [facility] [address] [place] [address] Dr. Keturah Fisher ALT [Catalytic activity/Vol] 14 U/L Normal 14-59 [facility] Comment on above: Performed By: #### C BC #### [facility] [address] [place] [address] Dr. Keturah Fisher Anion gap [Moles/Vol] 5.5 mmol/L Normal [facility] Comment on above: Performed By: #### C BC #### [facility] [address] [place] [address] Dr. Keturah Fisher AST [Catalytic activity/Vol] 16 U/L Normal 15-37 [facility] Comment on above: Performed By: #### C BC #### [facility] [address] [place] [address] Dr. Keturah Fisher Bilirubin [Mass/Vol] 0.1 mg/dL Critically low 0.2-1.0 [facility] Comment on above: Performed By: #### C BC #### [facility] [address] [place] [address] Dr. Keturah Fisher Calcium [Mass/Vol] 9.5 mg/dL Normal 8.5-10.1 [facility] Comment on above: Performed By: #### C BC #### [facility] [address] [place] [address] Dr. Keturah Fisher Chloride [Moles/Vol] 105 mmol/L Normal 98-107 [facility] Comment on above: Performed By: #### C BC #### [facility] [address] [place] [address] Dr. Keturah Fisher CO2 [Moles/Vol] 30.0 mmol/L Normal 21.0-32.0 [facility] Comment on above: Performed By: #### C BC #### [facility] [address] [place] [address] Dr. Keturah Fisher Creatinine [Mass/Vol] 0.90 mg/dL Normal 0.55-1.02 [facility] Comment on above: Performed By: #### C BC #### [facility] [address] [place] [address] Dr. Keturah Fisher EGFR-AF NAMIBIAN >60 Normal >=60 [facility] Comment on above: Performed By: #### C BC #### [facility] [address] [place] [address] Dr. Keturah Fisher EGFR-NON AF NAMIBIAN >60 Normal >=60 [facility] Comment on above: Performed By: #### C BC #### [facility] [address] [place] [address] Dr. Keturah Fisher Globulin (S) [Mass/Vol] 3.4 g/dL Normal [facility] Comment on above: Performed By: #### C BC #### [facility] [address] [place] [address] Dr. Keturah Fisher Glucose [Mass/Vol] 82 mg/dL Normal 74-106 [facility] Comment on above: Performed By: #### C BC #### [facility] [address] [place] [address] Dr. Keturah Fisher Potassium [Moles/Vol] 3.5 mmol/L Normal 3.5-5.1 [facility] Comment on above: Performed By: #### C BC #### [facility] [address] [address] [address] Keturah Fisher Protein [Mass/Vol] 7.2 g/dL Normal 6.4-8.2 [facility] Comment on above: Performed By: #### C BC #### [facility] [address] [address] [address] Keturah Fisher Sodium [Moles/Vol] 137 mmol/L Normal 136-145 [facility] Comment on above: Performed By: #### C BC #### [facility] [address] [place] [address] Dr. Keturah Fisher Urea nitrogen [Mass/Vol] 12.0 mg/dL Normal 7.0-18.0 [facility] Comment on above: Performed By: #### C BC #### [facility] [address] [place] [address] Dr. Keturah Fisher Urea nitrogen/Creatinine [Mass ratio] 13.3 mg/mg Normal [facility] Comment on above: Performed By: #### C BC #### [facility] [address] [place] [address] Dr. Keturah Fisher AMYLASEon 12-13-2021 Amylase [Catalytic activity/Vol] 268 U/L Critically high 25-115 [facility] Comment on above: Performed By: #### L IPA, CMP, CRP, NAT #### [facility] [address] [place] [address] Dr. Keturah Fisher CBC AUTO DIFFon 12-13-2021 BASO # 0.1 103/ul Normal 0.0-0.1 [facility] Comment on above: Performed By: #### L IPA, CMP, CRP, NAT #### [facility] [address] [place] [address] Dr. Keturah Fisher Basophils/100 WBC (Bld) 0.6 % Normal 0.2-2.0 [facility] Comment on above: Performed By: #### L IPA, CMP, CRP, NAT #### [facility] [address] [place] [address] Dr. Keturah Fisher EO # 0.1 103/ul Normal 0.0-0.7 [facility] Comment on above: Performed By: #### L IPA, CMP, CRP, NAT #### [facility] [address] [place] [address] Dr. Keturah Fisher Eosinophils/100 WBC (Bld) 1.2 % Normal 0.9-7.0 [facility] Comment on above: Performed By: #### L IPA, CMP, CRP, NAT #### [facility] [address] [place] [address] Dr. Keturah Fisher Erythrocyte distribution width (RBC) [Ratio] 13.2 % Normal 11.0-15.0 [facility] Comment on above: Performed By: #### L IPA, CMP, CRP, NAT #### [facility] [address] [place] [address] Dr. Keturah Fisher Hematocrit (Bld) [Volume fraction] 44.7 % Normal 36.0-48.0 [facility] Comment on above: Performed By: #### L IPA, CMP, CRP, NAT #### [facility] [address] [place] [address] Dr. Keturah Fisher Hemoglobin (Bld) [Mass/Vol] 14.7 g/dL Normal 12.0-16.0 [facility] Comment on above: Performed By: #### L IPA, CMP, CRP, NAT #### [facility] [address] [place] [address] Dr. Keturah Fisher IG # 0.03 10e3/ul Normal 0.00-0.03 [facility] Comment on above: Performed By: #### L IPA, CMP, CRP, NAT #### [facility] [address] [place] [address] Dr. Keturah Fisher IG % 0.3 % Normal 0.0-0.5 [facility] Comment on above: Performed By: #### L IPA, CMP, CRP, NAT #### [facility] [address] [place] [address] Dr. Keturah Fisher LYMPH # 3.6 103/ul Normal 1.2-3.8 [facility] Comment on above: Performed By: #### L IPA, CMP, CRP, NAT #### [facility] [address] [place] [address] Dr. Keturah Fisher Lymphocytes/100 WBC (Bld) 32.7 % Normal 20.5-60.0 [facility] Comment on above: Performed By: #### L IPA, CMP, CRP, NAT #### [facility] [address] [place] [address] Dr. Keturah Fisher MANUAL DIFF REQ NO Normal [facility] Comment on above: Performed By: #### L IPA, CMP, CRP, NAT #### [facility] [address] [place] [address] Dr. Keturah Fisher MCH (RBC) [Entitic mass] 32.2 pg Normal 26.7-34.0 [facility] Comment on above: Performed By: #### L IPA, CMP, CRP, NAT #### [facility] [address] [place] [address] Dr. Keturah Fisher MCHC (RBC) [Mass/Vol] 32.9 g/dL Normal 29.9-35.2 [facility] Comment on above: Performed By: #### L IPA, CMP, CRP, NAT #### [facility] [address] [place] [address] Dr. Keturah Fisher MCV (RBC) [Entitic vol] 98.0 fL Normal 81.0-99.0 [facility] Comment on above: Performed By: #### L IPA, CMP, CRP, NAT #### [facility] [address] [place] [address] Dr. Keturah Fisher MONO # 1.1 103/ul Critically high 0.3-0.8 [facility] Comment on above: Performed By: #### L IPA, CMP, CRP, NAT #### [facility] [address] [place] [address] Dr. Keturah Fisher Monocytes/100 WBC (Bld) 9.7 % Normal 1.7-12.0 [facility] Comment on above: Performed By: #### L IPA, CMP, CRP, NAT #### [facility] [address] [place] [address] Dr. Keturah Fisher NEUT # 6.1 103/ul Normal 1.4-6.5 [facility] Comment on above: Performed By: #### L IPA, CMP, CRP, NAT #### [facility] [address] [address] [address] Keturah Fisher Neutrophils/100 WBC (Bld) 55.5 % Normal 43.0-75.0 [facility] Comment on above: Performed By: #### L IPA, CMP, CRP, NAT #### [facility] [address] [address] [address] Keturah Fisher Platelet mean volume (Bld) [Entitic vol] 9.7 fL Normal 9.5-13.5 [facility] Comment on above: Performed By: #### L IPA, CMP, CRP, NAT #### [facility] [address] [address] [address] Keturah Fisher PLT 274 103/ul Normal 150-450 [facility] Comment on above: Performed By: #### L IPA, CMP, CRP, NAT #### [facility] [address] [place] [address] Dr. Keturah Fisher RBC 4.56 106/ul Normal 4.20-5.40 [facility] Comment on above: Performed By: #### L IPA, CMP, CRP, NAT #### [facility] [address] [place] [address] Dr. Keturah Fisher WBC 10.9 103/ul Normal 4.0-11.0 [facility] Comment on above: Performed By: #### L IPA, CMP, CRP, NAT #### [facility] [address] [place] [address] Dr. Keturah Fisher CRPon 12-13-2021 CRP [Mass/Vol] mg/L Normal <=1.0 [facility] Comment on above: Performed By: #### L IPA, CMP, CRP, NAT #### [facility] [address] [place] [address] ABD/PELV W CONon [...] #### L IPA, CMP, CRP, NAT #### [facility] [address] [address] [address] Keturah Fisher PROF 14(COMP METB)on 022 Albumin [Mass/Vol] 4.0 g/dL Normal 3.4-5.0 [facility] Comment on above: Performed By: #### L IPA, CMP, CRP, NAT #### [facility] [address] [address] [address] Keturah Fisher Albumin/Globulin [Mass ratio] 1.0 {ratio} Normal [facility] Comment on above: Performed By: #### L IPA, CMP, CRP, NAT #### [facility] [address] [address] [address] Keturah Fisher ALP [Catalytic activity/Vol] 166 U/L Critically high 46-116 [facility] Comment on above: Performed By: #### L IPA, CMP, CRP, NAT #### [facility] [address] [place] [address] Dr. Keturah Fisher ALT [Catalytic activity/Vol] 19 U/L Normal 14-59 [facility] Comment on above: Performed By: #### L IPA, CMP, CRP, NAT #### [facility] [address] [place] [address] Dr. Keturah Fisher Anion gap [Moles/Vol] 9.5 mmol/L Normal [facility] Comment on above: Performed By: #### L IPA, CMP, CRP, NAT #### [facility] [address] [place] [address] Dr. Keturah Fisher AST [Catalytic activity/Vol] 16 U/L Normal 15-37 [facility] Comment on above: Performed By: #### L IPA, CMP, CRP, NAT #### [facility] [address] [place] [address] Dr. Keturah Fisher Bilirubin [Mass/Vol] 0.1 mg/dL Critically low 0.2-1.0 [facility] Comment on above: Performed By: #### L IPA, CMP, CRP, NAT #### [facility] [address] [place] [address] Dr. Keturah Fisher Calcium [Mass/Vol] 9.6 mg/dL Normal 8.5-10.1 [facility] Comment on above: Performed By: #### L IPA, CMP, CRP, NAT #### [facility] [address] [place] [address] Dr. Keturah Fisher Chloride [Moles/Vol] 104 mmol/L Normal 98-107 [facility] Comment on above: Performed By: #### L IPA, CMP, CRP, NAT #### [facility] [address] [address] [address] Keturah Fisher CO2 [Moles/Vol] 29.7 mmol/L Normal 21.0-32.0 [facility] Comment on above: Performed By: #### L IPA, CMP, CRP, NAT #### [facility] [address] [address] [address] Keturah Fisher Creatinine [Mass/Vol] 0.85 mg/dL Normal 0.55-1.02 [facility] Comment on above: Performed By: #### L IPA, CMP, CRP, NAT #### [facility] [address] [address] [address] Keturah Fisher EGFR-AF NAMIBIAN >60 Normal >=60 [facility] Comment on above: Performed By: #### L IPA, CMP, CRP, NAT #### [facility] [address] [address] [address] Keturah Fisher EGFR-NON AF NAMIBIAN >60 Normal >=60 [facility] Comment on above: Performed By: #### L IPA, CMP, CRP, NAT #### [facility] [address] [address] [address] Keturah Fisher Globulin (S) [Mass/Vol] 3.9 g/dL Normal [facility] Comment on above: Performed By: #### L IPA, CMP, CRP, NAT #### [facility] [address] [address] [address] Keturah Fisher Glucose [Mass/Vol] 70 mg/dL Critically low 74-106 [facility] Comment on above: Performed By: #### L IPA, CMP, CRP, NAT #### [facility] [address] [place] [address] Dr. Keturah Fisher Potassium [Moles/Vol] 3.2 mmol/L Critically low 3.5-5.1 [facility] Comment on above: Performed By: #### L IPA, CMP, CRP, NAT #### [facility] [address] [place] [address] Dr. Keturah Fisher Protein [Mass/Vol] 7.9 g/dL Normal 6.4-8.2 [facility] Comment on above: Performed By: #### L IPA, CMP, CRP, NAT #### [facility] [address] [place] [address] Dr. Keturah Fisher Sodium [Moles/Vol] 140 mmol/L Normal 136-145 [facility] Comment on above: Performed By: #### L IPA, CMP, CRP, NAT #### [facility] [address] [place] [address] Dr. Keturah Fisher Urea nitrogen [Mass/Vol] 8.0 mg/dL Normal 7.0-18.0 [facility] Comment on above: Performed By: #### L IPA, CMP, CRP, NAT #### [facility] [address] [place] [address] Dr. Keturah Fisher Urea nitrogen/Creatinine [Mass ratio] 9.4 mg/mg Normal [facility] Comment on above: Performed By: #### L IPA, CMP, CRP, NAT #### [facility] [address] [place] [address] Dr. Keturah Fisher AMYLASEon 12-05-2021 Amylase [Catalytic activity/Vol] 223 U/L Critically high 25-115 [facility] Comment on above: Performed By: #### L IPA, CMP, CRP, NAT #### [facility] [address] [place] [address] Dr. Keturah Fisher CBC AUTO DIFFon 12-05-2021 BASO # 0.1 103/ul Normal 0.0-0.1 [facility] Comment on above: Performed By: #### C BC #### [facility] [address] [place] [address] Dr. Keturah Fisher Basophils/100 WBC (Bld) 0.7 % Normal 0.2-2.0 [facility] Comment on above: Performed By: #### C BC #### [facility] [address] [place] [address] Dr. Keturah Fisher EO # 0.2 103/ul Normal 0.0-0.7 [facility] Comment on above: Performed By: #### C BC #### [facility] [address] [place] [address] Dr. Keturah Fisher Eosinophils/100 WBC (Bld) 1.7 % Normal 0.9-7.0 [facility] Comment on above: Performed By: #### C BC #### [facility] [address] [place] [address] Dr. Keturah Fisher Erythrocyte distribution width (RBC) [Ratio] 13.0 % Normal 11.0-15.0 [facility] Comment on above: Performed By: #### C BC #### [facility] [address] [place] [address] Dr. Keturah Fisher Hematocrit (Bld) [Volume fraction] 44.9 % Normal 36.0-48.0 [facility] Comment on above: Performed By: #### C BC #### [facility] [address] [place] [address] Dr. Keturah Fisher Hemoglobin (Bld) [Mass/Vol] 15.1 g/dL Normal 12.0-16.0 [facility] Comment on above: Performed By: #### C BC #### [facility] [address] [place] [address] Dr. Keturah Fisher IG # 0.02 10e3/ul Normal 0.00-0.03 [facility] Comment on above: Performed By: #### C BC #### [facility] [address] [place] [address] Dr. Keturah Fisher IG % 0.2 % Normal 0.0-0.5 [facility] Comment on above: Performed By: #### C BC #### [facility] [address] [place] [address] Dr. Keturah Fisher LYMPH # 2.8 103/ul Normal 1.2-3.8 [facility] Comment on above: Performed By: #### C BC #### [facility] [address] [place] [address] Dr. Keturah Fisher Lymphocytes/100 WBC (Bld) 29.8 % Normal 20.5-60.0 [facility] Comment on above: Performed By: #### C BC #### [facility] [address] [place] [address] Dr. Keturah Fisher MANUAL DIFF REQ NO Normal [facility] Comment on above: Performed By: #### C BC #### [facility] [address] [place] [address] Dr. Keturah Fisher MCH (RBC) [Entitic mass] 32.4 pg Normal 26.7-34.0 [facility] Comment on above: Performed By: #### C BC #### [facility] [address] [place] [address] Dr. Keturah Fisher MCHC (RBC) [Mass/Vol] 33.6 g/dL Normal 29.9-35.2 [facility] Comment on above: Performed By: #### C BC #### [facility] [address] [place] [address] Dr. Keturah Fisher MCV (RBC) [Entitic vol] 96.4 fL Normal 81.0-99.0 [facility] Comment on above: Performed By: #### C BC #### [facility] [address] [place] [address] Dr. Keturah Fisher MONO # 0.6 103/ul Normal 0.3-0.8 [facility] Comment on above: Performed By: #### C BC #### [facility] [address] [place] [address] Dr. Keturah Fisher Monocytes/100 WBC (Bld) 6.3 % Normal 1.7-12.0 [facility] Comment on above: Performed By: #### C BC #### [facility] [address] [place] [address] Dr. Keturah Fisher NEUT # 5.7 103/ul Normal 1.4-6.5 [facility] Comment on above: Performed By: #### C BC #### [facility] [address] [place] [address] Dr. Keturah Fisher Neutrophils/100 WBC (Bld) 61.3 % Normal 43.0-75.0 [facility] Comment on above: Performed By: #### C BC #### [facility] [address] [place] [address] Dr. Keturah Fisher Platelet mean volume (Bld) [Entitic vol] 10.7 fL Normal 9.5-13.5 [facility] Comment on above: Performed By: #### C BC #### [facility] [address] [place] [address] Dr. Keturah Fisher PLT 217 103/ul Normal 150-450 [facility] Comment on above: Performed By: #### C BC #### [facility] [address] [place] [address] Dr. Keturah Fisher RBC 4.66 106/ul Normal 4.20-5.40 [facility] Comment on above: Performed By: #### C BC #### [facility] [address] [place] [address] Dr. Keturah Fisher WBC 9.2 103/ul Normal 4.0-11.0 [facility] Comment on above: Performed By: #### C BC #### [facility] [address] [place] [address] Dr. Keturah Fisher LIPASEon 12-05-2021 Lipase [Catalytic activity/Vol] 725.0 U/L Critically high 73.0-393.0 [facility] Comment on above: Performed By: #### L IPA, CMP, CRP, NAT #### [facility] [address] [place] [address] Dr. Keturah Fisher PROF 14(COMP METB)on 022 Albumin [Mass/Vol] 4.2 g/dL Normal 3.4-5.0 [facility] Comment on above: Performed By: #### L IPA, CMP, CRP, NAT #### [facility] [address] [place] [address] Dr. Keturah Fisher Albumin/Globulin [Mass ratio] 1.2 {ratio} Normal [facility] Comment on above: Performed By: #### L IPA, CMP, CRP, NAT #### [facility] [address] [address] [address] Keturah Fisher ALP [Catalytic activity/Vol] 158 U/L Critically high 46-116 [facility] Comment on above: Performed By: #### L IPA, CMP, CRP, NAT #### [facility] [address] [place] [address] Dr. Keturah Fisher ALT [Catalytic activity/Vol] 20 U/L Normal 14-59 [facility] Comment on above: Performed By: #### L IPA, CMP, CRP, NAT #### [facility] [address] [place] [address] Dr. Keturah Fisher Anion gap [Moles/Vol] 14.0 mmol/L Normal [facility] Comment on above: Performed By: #### L IPA, CMP, CRP, NAT #### [facility] [address] [place] [address] Dr. Keturah Fisher AST [Catalytic activity/Vol] 27 U/L Normal 15-37 [facility] Comment on above: Performed By: #### L IPA, CMP, CRP, NAT #### [facility] [address] [place] [address] Dr. Keturah Fisher Bilirubin [Mass/Vol] 0.3 mg/dL Normal 0.2-1.0 [facility] Comment on above: Performed By: #### L IPA, CMP, CRP, NAT #### [facility] [address] [place] [address] Dr. Keturah Fisher Calcium [Mass/Vol] 10.1 mg/dL Normal 8.5-10.1 [facility] Comment on above: Performed By: #### L IPA, CMP, CRP, NAT #### [facility] [address] [place] [address] Dr. Keturah Fisher Chloride [Moles/Vol] 105 mmol/L Normal 98-107 [facility] Comment on above: Performed By: #### L IPA, CMP, CRP, NAT #### [facility] [address] [place] [address] Dr. Keturah Fisher CO2 [Moles/Vol] 24.9 mmol/L Normal 21.0-32.0 [facility] Comment on above: Performed By: #### L IPA, CMP, CRP, NAT #### [facility] [address] [address] [address] Keturah Fisher Creatinine [Mass/Vol] 0.77 mg/dL Normal 0.55-1.02 [facility] Comment on above: Performed By: #### L IPA, CMP, CRP, NAT #### [facility] [address] [address] [address] Keturah Fisher EGFR-AF NAMIBIAN >60 Normal >=60 [facility] Comment on above: Performed By: #### L IPA, CMP, CRP, NAT #### [facility] [address] [address] [address] Keturah Fisher EGFR-NON AF NAMIBIAN >60 Normal >=60 [facility] Comment on above: Performed By: #### L IPA, CMP, CRP, NAT #### [facility] [address] [address] [address] Keturah Fisher Globulin (S) [Mass/Vol] 3.5 g/dL Normal [facility] Comment on above: Performed By: #### L IPA, CMP, CRP, NAT #### [facility] [address] [address] [address] Keturah Fisher Glucose [Mass/Vol] 91 mg/dL Normal 74-106 [facility] Comment on above: Performed By: #### L IPA, CMP, CRP, NAT #### [facility] [address] [address] [address] Keturah Fisher Potassium [Moles/Vol] 3.9 mmol/L Normal 3.5-5.1 [facility] Comment on above: Performed By: #### L IPA, CMP, CRP, NAT #### [facility] [address] [address] [address] Keturah Fisher Protein [Mass/Vol] 7.7 g/dL Normal 6.4-8.2 [facility] Comment on above: Performed By: #### L IPA, CMP, CRP, NAT #### [facility] [address] [place] [address] Dr. Keturah Fisher Sodium [Moles/Vol] 140 mmol/L Normal 136-145 [facility] Comment on above: Performed By: #### L IPA, CMP, CRP, NAT #### [facility] [address] [place] [address] Dr. Keturah Fisher Urea nitrogen [Mass/Vol] 8.0 mg/dL Normal 7.0-18.0 [facility] Comment on above: Performed By: #### L IPA, CMP, CRP, NAT #### [facility] [address] [place] [address] Dr. Keturah Fisher Urea nitrogen/Creatinine [Mass ratio] 10.4 mg/mg Normal [facility] Comment on above: Performed By: #### L IPA, CMP, CRP, NAT #### [facility] [address] [place] [address] Dr. Keturah Fisher AMYLASEon 10-11-2021 Amylase [Catalytic activity/Vol] 134 U/L Critically high 25-115 [facility] Comment on above: Performed By: #### C BC #### [facility] [address] [place] [address] Dr. Keturah Fisher CBC AUTO DIFFon 10-11-2021 BASO # 0.1 103/ul Normal 0.0-0.1 [facility] Comment on above: Performed By: #### L IPA, CMP, CRP, NAT #### [facility] [address] [place] [address] Dr. Keturah Fisher Basophils/100 WBC (Bld) 1.0 % Normal 0.2-2.0 [facility] Comment on above: Performed By: #### L IPA, CMP, CRP, NAT #### [facility] [address] [place] [address] Dr. Keturah Fisher EO # 0.2 103/ul Normal 0.0-0.7 [facility] Comment on above: Performed By: #### L IPA, CMP, CRP, NAT #### [facility] [address] [place] [address] Dr. Keturah Fisher Eosinophils/100 WBC (Bld) 2.0 % Normal 0.9-7.0 [facility] Comment on above: Performed By: #### L IPA, CMP, CRP, NAT #### [facility] [address] [place] [address] Dr. Keturah Fisher Erythrocyte distribution width (RBC) [Ratio] 13.2 % Normal 11.0-15.0 [facility] Comment on above: Performed By: #### L IPA, CMP, CRP, NAT #### [facility] [address] [place] [address] Dr. Keturah Fisher Hematocrit (Bld) [Volume fraction] 44.7 % Normal 36.0-48.0 [facility] Comment on above: Performed By: #### L IPA, CMP, CRP, NAT #### [facility] [address] [place] [address] Dr. Keturah Fisher Hemoglobin (Bld) [Mass/Vol] 15.0 g/dL Normal 12.0-16.0 [facility] Comment on above: Performed By: #### L IPA, CMP, CRP, NAT #### [facility] [address] [place] [address] Dr. Keturah Fisher IG # 0.02 10e3/ul Normal 0.00-0.03 [facility] Comment on above: Performed By: #### L IPA, CMP, CRP, NAT #### [facility] [address] [place] [address] Dr. Keturah Fisher IG % 0.2 % Normal 0.0-0.5 [facility] Comment on above: Performed By: #### L IPA, CMP, CRP, NAT #### [facility] [address] [place] [address] Dr. Keturah Fisher LYMPH # 4.1 103/ul Critically high 1.2-3.8 [facility] Comment on above: Performed By: #### L IPA, CMP, CRP, NAT #### [facility] [address] [place] [address] Dr. Keturah Fisher Lymphocytes/100 WBC (Bld) 38.9 % Normal 20.5-60.0 [facility] Comment on above: Performed By: #### L IPA, CMP, CRP, NAT #### [facility] [address] [place] [address] Dr. Keturah Fisher MANUAL DIFF REQ NO Normal [facility] Comment on above: Performed By: #### L IPA, CMP, CRP, NAT #### [facility] [address] [place] [address] Dr. Keturah Fisher MCH (RBC) [Entitic mass] 32.1 pg Normal 26.7-34.0 [facility] Comment on above: Performed By: #### L IPA, CMP, CRP, NAT #### [facility] [address] [place] [address] Dr. Keturah Fisher MCHC (RBC) [Mass/Vol] 33.6 g/dL Normal 29.9-35.2 [facility] Comment on above: Performed By: #### L IPA, CMP, CRP, NAT #### [facility] [address] [place] [address] Dr. Keturah Fisher MCV (RBC) [Entitic vol] 95.7 fL Normal 81.0-99.0 [facility] Comment on above: Performed By: #### L IPA, CMP, CRP, NAT #### [facility] [address] [place] [address] Dr. Keturah Fisher MONO # 0.9 103/ul Critically high 0.3-0.8 [facility] Comment on above: Performed By: #### L IPA, CMP, CRP, NAT #### [facility] [address] [place] [address] Dr. Keturah Fisher Monocytes/100 WBC (Bld) 8.8 % Normal 1.7-12.0 [facility] Comment on above: Performed By: #### L IPA, CMP, CRP, NAT #### [facility] [address] [place] [address] Dr. Keturah Fisher NEUT # 5.2 103/ul Normal 1.4-6.5 [facility] Comment on above: Performed By: #### L IPA, CMP, CRP, NAT #### [facility] [address] [place] [address] Dr. Keturah Fisher Neutrophils/100 WBC (Bld) 49.1 % Normal 43.0-75.0 [facility] Comment on above: Performed By: #### L IPA, CMP, CRP, NAT #### [facility] [address] [place] [address] Dr. Keturah Fisher Platelet mean volume (Bld) [Entitic vol] 9.8 fL Normal 9.5-13.5 [facility] Comment on above: Performed By: #### L IPA, CMP, CRP, NAT #### [facility] [address] [place] [address] Dr. Keturah Fisher PLT 299 103/ul Normal 150-450 [facility] Comment on above: Performed By: #### L IPA, CMP, CRP, NAT #### [facility] [address] [place] [address] Dr. Keturah Fisher RBC 4.67 106/ul Normal 4.20-5.40 [facility] Comment on above: Performed By: #### L IPA, CMP, CRP, NAT #### [facility] [address] [place] [address] Dr. Keturah Fisher WBC 10.5 103/ul Normal 4.0-11.0 [facility] Comment on above: Performed By: #### L IPA, CMP, CRP, NAT #### [facility] [address] [place] [address] Dr. Keturah Fisher LIPASEon 10-11-2021 Lipase [Catalytic activity/Vol] 240.0 U/L Normal 73.0-393.0 [facility] Comment on above: Performed By: #### C BC #### [facility] [address] [place] [address] Dr. Keturah Fisher PROF 14(COMP METB)on 022 Albumin [Mass/Vol] 4.3 g/dL Normal 3.4-5.0 [facility] Comment on above: Performed By: #### C BC #### [facility] [address] [place] [address] Dr. Keturah Fisher Albumin/Globulin [Mass ratio] 1.3 {ratio} Normal [facility] Comment on above: Performed By: #### C BC #### [facility] [address] [address] [address] Keturah Fisher ALP [Catalytic activity/Vol] 162 U/L Critically high 46-116 [facility] Comment on above: Performed By: #### C BC #### [facility] [address] [address] [address] Keturah Fisher ALT [Catalytic activity/Vol] 21 U/L Normal 14-59 [facility] Comment on above: Performed By: #### C BC #### [facility] [address] [address] [address] Keturah Fisher Anion gap [Moles/Vol] 15.1 mmol/L Normal [facility] Comment on above: Performed By: #### C BC #### [facility] [address] [place] [address] Dr. Keturah Fisher AST [Catalytic activity/Vol] 16 U/L Normal 15-37 [facility] Comment on above: Performed By: #### C BC #### [facility] [address] [place] [address] Dr. Keturah Fisher Bilirubin [Mass/Vol] 0.2 mg/dL Normal 0.2-1.0 [facility] Comment on above: Performed By: #### C BC #### [facility] [address] [place] [address] Dr. Keturah Fisher Calcium [Mass/Vol] 9.6 mg/dL Normal 8.5-10.1 [facility] Comment on above: Performed By: #### C BC #### [facility] [address] [place] [address] Dr. Keturah Fisher Chloride [Moles/Vol] 104 mmol/L Normal 98-107 [facility] Comment on above: Performed By: #### C BC #### [facility] [address] [address] [address] Keturah Fisher CO2 [Moles/Vol] 24.6 mmol/L Normal 21.0-32.0 [facility] Comment on above: Performed By: #### C BC #### [facility] [address] [address] [address] Keturah Fisher Creatinine [Mass/Vol] 0.88 mg/dL Normal 0.55-1.02 [facility] Comment on above: Performed By: #### C BC #### [facility] [address] [place] [address] Dr. Keturah Fisher EGFR-AF NAMIBIAN >60 Normal >=60 [facility] Comment on above: Performed By: #### C BC #### [facility] [address] [address] [address] Keturah Fisher EGFR-NON AF NAMIBIAN >60 Normal >=60 [facility] Comment on above: Performed By: #### C BC #### [facility] [address] [place] [address] Dr. Keturah Fisher Globulin (S) [Mass/Vol] 3.3 g/dL Normal [facility] Comment on above: Performed By: #### C BC #### [facility] [address] [place] [address] Dr. Keturah Fisher Glucose [Mass/Vol] 111 mg/dL Critically high 74-106 [facility] Comment on above: Performed By: #### C BC #### [facility] [address] [place] [address] Dr. Keturah Fisher Potassium [Moles/Vol] 3.7 mmol/L Normal 3.5-5.1 [facility] Comment on above: Performed By: #### C BC #### [facility] [address] [place] [address] Dr. Keturah Fisher Protein [Mass/Vol] 7.6 g/dL Normal 6.4-8.2 [facility] Comment on above: Performed By: #### C BC #### [facility] [address] [place] [address] Dr. Keturah Fisher Sodium [Moles/Vol] 140 mmol/L Normal 136-145 [facility] Comment on above: Performed By: #### C BC #### [facility] [address] [place] [address] Dr. Keturah Fisher Urea nitrogen [Mass/Vol] 11.0 mg/dL Normal 7.0-18.0 [facility] Comment on above: Performed By: #### C BC #### [facility] [address] [address] [address] Keturah Fisher Urea nitrogen/Creatinine [Mass ratio] 12.5 mg/mg Normal [facility] Comment on above: Performed By: #### C BC #### [facility] [address] [address] [address] Keturah Fisher PROTIMEon 10-11-2021 INR Coag (PPP) [Relative time] 0.94 {INR} Normal [facility] Comment on above: Performed By: #### P T, PTT ####[facility] [id number] [address]. Keutrah Fisher INR GUIDELINES SEE BELOW Normal [facility] Comment on above: Result Comment: KARLY RED INR: 2.0 - 3.0 CONDITIONS NOT LISTED BELOW 2.5 - 3.5 FOR PROSTHETIC HEART VALVE REPLACEMENT 2.5 - 3.5 RECURRENT THROMBOSIS Performed By: #### P T, PTT ####[facility] [id number] [address]Dr. Keturah Fisher PT Coag (PPP) [Time] 10.2 s Normal 9.0-11.6 [facility] Comment on above: Performed By: #### P T, PTT ####[facility] [id number] [address]Dr. Keturah Fisher PTTon 10-11-2021 aPTT Coag (Bld) [Time] 28.0 s Normal 22.3-36.2 [facility] Comment on above: Performed By: #### P T, PTT ####[facility] [id number] [address]DrGopal Fisher Amphetamine Screen Ql (U)Ord ered By: Christa Lopez on 10-09-2021 Amphetamines Ql (U) Negative Negative [facility] Barbiturates [Presence] in U rineOrdered By: Christa Lopez on 10-09-2021 Barbiturates Ql (U) Negative Negative [facility] Basophils Auto (Bld) [#/Vol] Ordered By: Christa Lopez on 10-09-2021 Basophils (Bld) [#/Vol] 0.1 10*3/uL 0.0-0.2 [facility] Basophils/100 WBC Auto (Bld) Ordered By: Christa Lopez on 10-09-2021 Basophils/100 WBC (Bld) 0.9 % . [facility] Benzodiazepines [Presence] i n UrineOrdered By: Christa Lopez on 10-09-2021 Benzodiazepines Ql (U) Negative Negative [facility] Bilirubin Auto test strip Ql (U)Ordered By: Christa Lopez on 10-09-2021 Bilirubin Ql (U) Negative Negative [facility] Blood hemoglobin measurement (mass/volume)Ordered By: Christa Lopez on 10-09-2021 Hemoglobin (Bld) [Mass/Vol] 15.7 g/dL 11.8-15.4 [facility] Blood leukocytes automated c ount (number/volume)Ordered By: Christa Lopez on 10-09-2021 WBC (Bld) [#/Vol] 10.1 10*3/uL 4.5-11.0 [facility] Body fluid albumin measureme nt (mass/volume)Ordered By: Christa Lopez on 10-09-2021 Albumin (Body fld) [Mass/Vol] 4.5 g/dL 3.2-5.5 [facility] Cannabinoids [Presence] in U rine by Screen methodOrdered By: Christa Lopez on 10-09-2021 Cannabinoids Screen Ql (U) Negative Negative [facility] Comment on above: These are unconfirme d results and should not be used for legal purposes. Drug Cut-Off Concentration: AMPH 1000 ng/mL BAILEY 200 ng/mL JAKE 200 ng/mL COCM 300 ng/mL OP 300 ng/mL PCP 25 ng/mL THC 20 ng/mL Creatinine and Glomerular fi ltration rate.predicted panel (S/P/Bld)Ordered By: Christa Lopez on 10-09-2021 Creatinine [Mass/Vol] 0.85 mg/dL 0.44-1.03 [facility] Eosinophils Auto (Bld) [#/Vo l]Ordered By: Christa Lopez on 10-09-2021 Eosinophils (Bld) [#/Vol] 0.1 10*3/uL 0.0-0.45 [facility] Eosinophils/100 WBC Auto (Bl d)Ordered By: Christa Lopez on 10-09-2021 Eosinophils/100 WBC (Bld) 1.2 % . [facility] Erythrocyte distribution wid th Auto (RBC) [Ratio]Ordered By: Christa Lopez on 10-09-2021 Erythrocyte distribution width (RBC) [Ratio] 13.5 % 11.9-15.3 [facility] Estimated glomerular filtrat ion rate (GFR) non- AmericanOrdered By: Christa Lopez on 10-09-2021 GFR/1.73 sq M.predicted among non-blacks MDRD (S/P/Bld) [Vol rate/Area] > 60 mL/Min [facility] Globulin Calc (S) [Mass/Vol] Ordered By: Christa Lpoez on 10-09-2021 Globulin (S) [Mass/Vol] 2.9 g/dL [facility] Hematocrit Auto (Bld) [Volum e fraction]Ordered By: Christa Lopez on 10-09-2021 Hematocrit (Bld) [Volume fraction] 47.1 % 34.0-46.4 [facility] Ketones Auto test strip (U) [Mass/Vol]Ordered By: Christa Lopez on 10-09-2021 Ketones (U) [Mass/Vol] Negative Negative [facility] Laboratory - Chemistry and C hemistry - challengeOrdered By: Christa Lopez on 10-09-2021 Lipase [Catalytic activity/Vol] 242.0 U/L 22-51 [facility] - Drug toxicology Ordered By: Christa Lopez on 10-09-2021 Opiates Ql (U) Negative Negative [facility] - Hematology and Cell countsOrdered By: Christa Lopez on 10-09-2021 Nucleated RBC/100 WBC (Bld) [Ratio] 0.1 % 0-0.5 [facility] Lymphocytes Auto (Bld) [#/Vo l]Ordered By: Christa Lopez on 10-09-2021 Lymphocytes (Bld) [#/Vol] 2.6 10*3/uL 1.00-4.8 [facility] Lymphocytes/100 WBC Auto (Bl d)Ordered By: Christa Lopez on 10-09-2021 Lymphocytes/100 WBC (Bld) 26.0 % . [facility] MCH Auto (RBC) [Entitic mass ]Ordered By: Christa Lopez on 10-09-2021 MCH (RBC) [Entitic mass] 32.4 pg 24.7-34.3 [facility] MCHC Auto (RBC) [Mass/Vol]Or dered By: Christa Lopez on 10-09-2021 MCHC (RBC) [Mass/Vol] 33.3 g/dL 32.0-35.0 [facility] MCV Auto (RBC) [Entitic vol] Ordered By: Christa Lopez on 10-09-2021 MCV (RBC) [Entitic vol] 97.3 fL 80-100 [facility] Monocytes Auto (Bld) [#/Vol] Ordered By: Christa Lopez on 10-09-2021 Monocytes (Bld) [#/Vol] 0.8 10*3/uL 0.0-0.8 [facility] Monocytes/100 WBC Auto (Bld) Ordered By: Christa Lopez on 10-09-2021 Monocytes/100 WBC (Bld) 7.6 % . [facility] Neutrophils Auto (Bld) [#/Vo l]Ordered By: Christa Lopez on 10-09-2021 Neutrophils (Bld) [#/Vol] 6.5 10*3/uL 1.8-7.7 [facility] Neutrophils/100 WBC Auto (Bl d)Ordered By: Christa Lopez on 10-09-2021 Neutrophils/100 WBC (Bld) 64.3 % . [facility] No Panel InformationOrdered By: Christa Lopez on 10-09-2021 Estimated GFR () > 60 mL/Min [facility] Comment on above: GFR estimated refere nce range: According to KDOQI guidelines, <60 ml/min/1.73m2 is sufficient to diagnose a patient with chronic kidney disease. Pharmacy Creatinine Clearance (Chem 61.23 [facility] Phencyclidine Screen Ql (U)O rdered By: Christa Lopez on 10-09-2021 Phencyclidine Ql (U) Negative Negative [facility] Platelet mean volume Auto (B ld) [Entitic vol]Ordered By: Christa Lopez on 10-09-2021 Platelet mean volume (Bld) [Entitic vol] 8.5 fL 6.3-10.7 [facility] Platelets Auto (Bld) [#/Vol] Ordered By: Christa Lopez on 10-09-2021 Platelets (Bld) [#/Vol] 284 10*3/uL 150-450 [facility] Protein Auto test strip (U) [Mass/Vol]Ordered By: Christa Lopez on 10-09-2021 Protein (U) [Mass/Vol] Negative Negative [facility] Protein [Mass/volume] in Ser um or PlasmaOrdered By: Christa Lopez on 10-09-2021 Protein [Mass/Vol] 7.4 g/dL 6.1-7.9 [facility] RBC Auto (Bld) [#/Vol]Ordere d By: Christa Lopez on 10-09-2021 RBC (Bld) [#/Vol] 4.84 10*6/uL 3.60-5.00 [facility] Serum or plasma alanine hughes otransferase measurement without P-5'-P (enzymatic activiOrdered By: Christa Lopez on 10-09-2021 ALT No additional P-5'-P [Catalytic activity/Vol] 19 U/L 10-60 [facility] Serum or plasma albumin/glob ulin mass ratioOrdered By: Christa Lopez on 10-09-2021 Albumin/Globulin [Mass ratio] 1.6 {ratio} [facility] Serum or plasma alkaline jaqueline sphatase measurement (enzymatic activity/volume)Ordered By: Christa Lopez on 10-09-2021 ALP [Catalytic activity/Vol] 138 U/L 32-92 [facility] Serum or plasma aspartate am inotransferase measurement (enzymatic activity/volume)Ordered By: Christa Lopez on 10-09-2021 AST [Catalytic activity/Vol] 31 U/L 10-42 [facility] Serum or plasma calcium priscilla urement (mass/volume)Ordered By: Christa Lopez on 10-09-2021 Calcium [Mass/Vol] 10.3 mg/dL 8.2-10.2 [facility] Serum or plasma chloride daron surement (moles/volume)Ordered By: Christa Lopez on 10-09-2021 Chloride [Moles/Vol] 100 mmol/L 95-114 [facility] Serum or plasma glucose priscilla urement (mass/volume)Ordered By: Christa Lopez on 10-09-2021 Glucose [Mass/Vol] 75 mg/dL 70-100 [facility] Comment on above: ADA recommended refe rence range Random Glucose Reference Range is dependent on time and content of last meal. Glucose of more than 200 mg/dL in a nonstressed, ambulatory subject supports the diagnosis of Diabetes Mellitus. Serum or plasma potassium me asurement (moles/volume)Ordered By: Christa Lopez on 10-09-2021 Potassium [Moles/Vol] 3.9 mmol/L 3.5-5.1 [facility] Serum or plasma sodium measu rement (moles/volume)Ordered By: Christa Lopez on 10-09-2021 Sodium [Moles/Vol] 136 mmol/L 136-146 [facility] Serum or plasma total biliru bin measurement (mass/volume)Ordered By: Christa Lopez on 10-09-2021 Bilirubin [Mass/Vol] 0.4 mg/dL 0.3-1.2 [facility] Serum or plasma total carbon dioxide measurement (moles/volume)Ordered By: Christa Lopez on 10-09-2021 CO2 [Moles/Vol] 24.1 mmol/L 22.0-30.0 [facility] Serum or plasma urea nitroge n measurement (mass/volume)Ordered By: Christa Lopez on 10-09-2021 Urea nitrogen [Mass/Vol] 12 mg/dL 9-23 [facility] Troponin I.cardiac [Mass/vol ume] in Serum or Plasma by High sensitivity methodOrdered By: Christa Lopez on 10-09-2021 Troponin I.cardiac High sensitivity method [Mass/Vol] 3 pg/mL 0-15 [facility] Urine appearanceOrdered By: Christa Lopez on 10-09-2021 Appearance (U) Clear Clear [facility] Urine cocaine detectionOrder ed By: Christa Lopez on 10-09-2021 Cocaine Ql (U) Negative Negative [facility] Urine colorOrdered By: Christa Lopez on 10-09-2021 Color (U) Yellow Yellow [facility] Urine glucose measurement by automated test strip (mass/volume)Ordered By: Christa Lopez on 10-09-2021 Glucose Auto test strip (U) [Mass/Vol] Normal mg/dL Normal [facility] Urine hemoglobin detection b y automated test stripOrdered By: Christa Lopez on 10-09-2021 Hemoglobin Auto test strip Ql (U) Negative Negative [facility] Urine leukocyte esterase det ection by automated test stripOrdered By: Christa Lopez on 10-09-2021 Leukocyte esterase Auto test strip Ql (U) Negative Negative [facility] Urine nitrite detection by a utomated test stripOrdered By: Christa Lopez on 10-09-2021 Nitrite Auto test strip Ql (U) Negative Negative [facility] Urobilinogen Auto test strip (U) [Mass/Vol]Ordered By: Christa Lopez on 10-09-2021 Urobilinogen (U) [Mass/Vol] Normal mg/dL Normal [facility] pH Auto test strip (U)Ordere d By: Christa Lopez on 10-09-2021 pH (U) 1.025 [pH] 1.001-1.03 0 [facility] pH (U) 5.5 [pH] 5.0-9.0 [facility] Albumin [Mass/volume] in Ser um or PlasmaOrdered By: Reinaldo Amor on 10-04-2021 Albumin [Mass/Vol] 3.6 g/dL 3.2-5.5 [facility] Basophils Auto (Bld) [#/Vol] Ordered By: Reinaldo Amor on 10-04-2021 Basophils (Bld) [#/Vol] 0.1 10*3/uL 0.0-0.2 [facility] Basophils/100 WBC Auto (Bld) Ordered By: Reinaldo Amor on 10-04-2021 Basophils/100 WBC (Bld) 0.8 % . [facility] Bilirubin Auto test strip Ql (U)Ordered By: Reinaldo Amor on 10-04-2021 Bilirubin Ql (U) Negative Negative [facility] Blood hemoglobin measurement (mass/volume)Ordered By: Reinaldo Amor on 10-04-2021 Hemoglobin (Bld) [Mass/Vol] 13.9 g/dL 11.8-15.4 [facility] Blood leukocytes automated c ount (number/volume)Ordered By: Reinaldo Amor on 10-04-2021 WBC (Bld) [#/Vol] 10.4 10*3/uL 4.5-11.0 [facility] Creatinine and Glomerular fi ltration rate.predicted panel (S/P/Bld)Ordered By: Reinaldo Amor on 10-04-2021 Creatinine [Mass/Vol] 0.73 mg/dL 0.44-1.03 [facility] Direct bilirubin measurement Ordered By: Reinaldo Amor on 10-04-2021 Bilirubin.direct [Mass/Vol] mg/dL 0.0-0.4 [facility] Eosinophils Auto (Bld) [#/Vo l]Ordered By: Reinaldo Amor on 10-04-2021 Eosinophils (Bld) [#/Vol] 0.1 10*3/uL 0.0-0.45 [facility] Eosinophils/100 WBC Auto (Bl d)Ordered By: Reinaldo Amor on 10-04-2021 Eosinophils/100 WBC (Bld) 0.5 % . [facility] Erythrocyte distribution wid th Auto (RBC) [Ratio]Ordered By: Reinaldo Amor on 10-04-2021 Erythrocyte distribution width (RBC) [Ratio] 13.7 % 11.9-15.3 [facility] Estimated glomerular filtrat ion rate (GFR) non- AmericanOrdered By: Reinaldo Amor on 10-04-2021 GFR/1.73 sq M.predicted among non-blacks MDRD (S/P/Bld) [Vol rate/Area] > 60 mL/Min [facility] Globulin Calc (S) [Mass/Vol] Ordered By: Reinaldo Amor on 10-04-2021 Globulin (S) [Mass/Vol] 2.6 g/dL [facility] Hematocrit Auto (Bld) [Volum e fraction]Ordered By: Reinaldo Amor on 10-04-2021 Hematocrit (Bld) [Volume fraction] 41.1 % 34.0-46.4 [facility] Ketones Auto test strip (U) [Mass/Vol]Ordered By: Reinaldo Amor on 10-04-2021 Ketones (U) [Mass/Vol] Negative Negative [facility] Laboratory - Chemistry and C hemistry - challengeOrdered By: Reinaldo Amor on 10-04-2021 Lipase [Catalytic activity/Vol] 107.0 U/L 22- [facility] - Hematology and Cell countsOrdered By: Reinaldo Amor on 10-04-2021 Nucleated RBC/100 WBC (Bld) [Ratio] 0.1 % 0-0.5 [facility] Lymphocytes Auto (Bld) [#/Vo l]Ordered By: Reinaldo Amor on 10-04-2021 Lymphocytes (Bld) [#/Vol] 2.5 10*3/uL 1.00-4.8 [facility] Lymphocytes/100 WBC Auto (Bl d)Ordered By: Reinaldo Amor on 10-04-2021 Lymphocytes/100 WBC (Bld) 24.1 % . [facility] MCH Auto (RBC) [Entitic mass ]Ordered By: Reinaldo Amor on 10-04-2021 MCH (RBC) [Entitic mass] 32.6 pg 24.7-34.3 [facility] MCHC Auto (RBC) [Mass/Vol]Or dered By: Reinaldo Amor on 10-04-2021 MCHC (RBC) [Mass/Vol] 33.8 g/dL 32.0-35.0 [facility] MCV Auto (RBC) [Entitic vol] Ordered By: Reinaldo Amor on 10-04-2021 MCV (RBC) [Entitic vol] 96.5 fL 80-100 [facility] Monocytes Auto (Bld) [#/Vol] Ordered By: Reinaldo Amor on 10-04-2021 Monocytes (Bld) [#/Vol] 0.9 10*3/uL 0.0-0.8 [facility] Monocytes/100 WBC Auto (Bld) Ordered By: Reinaldo Amor on 10-04-2021 Monocytes/100 WBC (Bld) 8.4 % . [facility] Neutrophils Auto (Bld) [#/Vo l]Ordered By: Reinaldo Amor on 10-04-2021 Neutrophils (Bld) [#/Vol] 6.9 10*3/uL 1.8-7.7 [facility] Neutrophils/100 WBC Auto (Bl d)Ordered By: Reinaldo Amor on 10-04-2021 Neutrophils/100 WBC (Bld) 66.2 % . [facility] No Panel InformationOrdered By: Reinaldo Amor on 10-04-2021 Estimated GFR () > 60 mL/Min [facility] Comment on above: GFR estimated refere nce range: According to KDOQI guidelines, <60 ml/min/1.73m2 is sufficient to diagnose a patient with chronic kidney disease. Pharmacy Creatinine Clearance (Chem 71.30 [facility] Platelet mean volume Auto (B ld) [Entitic vol]Ordered By: Reinaldo Amor on 10-04-2021 Platelet mean volume (Bld) [Entitic vol] 8.0 fL 6.3-10.7 [facility] Platelets Auto (Bld) [#/Vol] Ordered By: Reinaldo Amor on 10-04-2021 Platelets (Bld) [#/Vol] 268 10*3/uL 150-450 [facility] Protein Auto test strip (U) [Mass/Vol]Ordered By: Reinaldo Amor on 10-04-2021 Protein (U) [Mass/Vol] Negative Negative [facility] Protein [Mass/volume] in Ser um or PlasmaOrdered By: Reinaldo Amor on 10-04-2021 Protein [Mass/Vol] 6.2 g/dL 6.1-7.9 [facility] RBC Auto (Bld) [#/Vol]Ordere d By: Reinaldo Amor on 10-04-2021 RBC (Bld) [#/Vol] 4.26 10*6/uL 3.60-5.00 [facility] Serum or plasma alanine hughes otransferase measurement without P-5'-P (enzymatic activiOrdered By: Reinaldo Amor on 10-04-2021 ALT No additional P-5'-P [Catalytic activity/Vol] 15 U/L 10-60 [facility] Serum or plasma albumin/glob ulin mass ratioOrdered By: Reinaldo Amor on 10-04-2021 Albumin/Globulin [Mass ratio] 1.4 {ratio} [facility] Serum or plasma alkaline jaqueline sphatase measurement (enzymatic activity/volume)Ordered By: Reinaldo Amor on 10-04-2021 ALP [Catalytic activity/Vol] 103 U/L 32-92 [facility] Serum or plasma amylase priscilla urement (enzymatic activity/volume)Ordered By: Reinaldo Amor on 10-04-2021 Amylase [Catalytic activity/Vol] 134 U/L 28-100 [facility] Serum or plasma aspartate am inotransferase measurement (enzymatic activity/volume)Ordered By: Reinaldo Amor on 10-04-2021 AST [Catalytic activity/Vol] 20 U/L 10-42 [facility] Serum or plasma calcium priscilla urement (mass/volume)Ordered By: Reinaldo Amor on 10-04-2021 Calcium [Mass/Vol] 9.6 mg/dL 8.2-10.2 [facility] Serum or plasma chloride daron surement (moles/volume)Ordered By: Reinaldo Amor on 10-04-2021 Chloride [Moles/Vol] 103 mmol/L 95-114 [facility] Serum or plasma ethanol priscilla urement (mass/volume)Ordered By: Reinaldo Amor on 10-04-2021 Ethanol [Mass/Vol] mg/dL [facility] Ethanol [Mass/Vol] TNP [facility] Comment on above: Test not performed Serum or plasma glucose priscilla urement (mass/volume)Ordered By: Reinaldo Amor on 10-04-2021 Glucose [Mass/Vol] 120 mg/dL 70-100 [facility] Comment on above: ADA recommended refe rence range Random Glucose Reference Range is dependent on time and content of last meal. Glucose of more than 200 mg/dL in a nonstressed, ambulatory subject supports the diagnosis of Diabetes Mellitus. Serum or plasma non-glucuron idated bilirubin measurement (mass/volume)Ordered By: Reinaldo Amor on 10-04-2021 Bilirubin.indirect [Mass/Vol] TNP [facility] Comment on above: Test not performed Serum or plasma potassium me asurement (moles/volume)Ordered By: Reinaldo Amor on 10-04-2021 Potassium [Moles/Vol] 3.7 mmol/L 3.5-5.1 [facility] Serum or plasma sodium measu rement (moles/volume)Ordered By: Reinaldo Amor on 10-04-2021 Sodium [Moles/Vol] 137 mmol/L 136-146 [facility] Serum or plasma total biliru bin measurement (mass/volume)Ordered By: Reinaldo Amor on 10-04-2021 Bilirubin [Mass/Vol] 0.5 mg/dL 0.3-1.2 [facility] Serum or plasma total carbon dioxide measurement (moles/volume)Ordered By: Reinaldo Amor on 10-04-2021 CO2 [Moles/Vol] 24.9 mmol/L 22.0-30.0 [facility] Serum or plasma urea nitroge n measurement (mass/volume)Ordered By: Reinaldo Amor on 10-04-2021 Urea nitrogen [Mass/Vol] 7 mg/dL 9- [facility] Urine appearanceOrdered By: Reinaldo Amor on 10-04-2021 Appearance (U) Clear Clear [facility] Urine colorOrdered By: Ml Amor on 10-04-2021 Color (U) Yellow Yellow [facility] Urine glucose measurement by automated test strip (mass/volume)Ordered By: Reinaldo Amor on 10-04-2021 Glucose Auto test strip (U) [Mass/Vol] Normal mg/dL Normal [facility] Urine hemoglobin detection b y automated test stripOrdered By: Reinaldo Amor on 10-04-2021 Hemoglobin Auto test strip Ql (U) Negative Negative [facility] Urine leukocyte esterase det ection by automated test stripOrdered By: Reinaldo Amor on 10-04-2021 Leukocyte esterase Auto test strip Ql (U) Negative Negative [facility] Urine nitrite detection by a utomated test stripOrdered By: Reinaldo Amor on 10-04-2021 Nitrite Auto test strip Ql (U) Negative Negative [facility] Urobilinogen Auto test strip (U) [Mass/Vol]Ordered By: Reinaldo Amor on 10-04-2021 Urobilinogen (U) [Mass/Vol] Normal mg/dL Normal [facility] pH Auto test strip (U)Ordere d By: Reinaldo Amor on 10-04-2021 pH (U) 1.030 [pH] 1.001-1.03 0 [facility] pH (U) 5.5 [pH] 5.0-9.0 [facility] Basophils Auto (Bld) [#/Vol] Ordered By: Reinaldo Amor on 09-25-2021 Basophils (Bld) [#/Vol] 0.1 10*3/uL 0.0-0.2 [facility] Basophils/100 WBC Auto (Bld) Ordered By: Reinaldo Amor on 09-25-2021 Basophils/100 WBC (Bld) 1.2 % . [facility] Blood hemoglobin measurement (mass/volume)Ordered By: Reinaldo Amor on 09-25-2021 Hemoglobin (Bld) [Mass/Vol] 14.2 g/dL 11.8-15.4 [facility] Blood leukocytes automated c ount (number/volume)Ordered By: Reinaldo Amor on 09-25-2021 WBC (Bld) [#/Vol] 9.3 10*3/uL 4.5-11.0 [facility] Body fluid albumin measureme nt (mass/volume)Ordered By: JOSE CASTILLO on 09-25-2021 Albumin (Body fld) [Mass/Vol] 4.3 g/dL 3.2-5.5 [facility] Creatinine and Glomerular fi ltration rate.predicted panel (S/P/Bld)Ordered By: PROVIDER JONATHAN on 09-25-2021 Creatinine [Mass/Vol] 0.82 mg/dL 0.44-1.03 [facility] Eosinophils Auto (Bld) [#/Vo l]Ordered By: Reinaldo Amor on 09-25-2021 Eosinophils (Bld) [#/Vol] 0.2 10*3/uL 0.0-0.45 [facility] Eosinophils/100 WBC Auto (Bl d)Ordered By: Reinaldo Amor on 09-25-2021 Eosinophils/100 WBC (Bld) 1.9 % . [facility] Erythrocyte distribution wid th Auto (RBC) [Ratio]Ordered By: Reinaldo Amor on 09-25-2021 Erythrocyte distribution width (RBC) [Ratio] 13.7 % 11.9-15.3 [facility] Estimated glomerular filtrat ion rate (GFR) non- AmericanOrdered By: PROVIDER TEMP on 09-25-2021 GFR/1.73 sq M.predicted among non-blacks MDRD (S/P/Bld) [Vol rate/Area] > 60 mL/Min [facility] Globulin Calc (S) [Mass/Vol] Ordered By: PROVIDER TEMP on 09-25-2021 Globulin (S) [Mass/Vol] 3.3 g/dL [facility] Hematocrit Auto (Bld) [Volum e fraction]Ordered By: Reinaldo Amor on 09-25-2021 Hematocrit (Bld) [Volume fraction] 42.1 % 34.0-46.4 [facility] Laboratory - Chemistry and C hemistry - challengeOrdered By: Reinaldo Amor on 09-25-2021 Lipase [Catalytic activity/Vol] 64.0 U/L 22-51 [facility] - Hematology and Cell countsOrdered By: Reinaldo Amor on 09-25-2021 Nucleated RBC/100 WBC (Bld) [Ratio] 0.1 % 0-0.5 [facility] Lymphocytes Auto (Bld) [#/Vo l]Ordered By: Reinaldo Amor on 09-25-2021 Lymphocytes (Bld) [#/Vol] 2.6 10*3/uL 1.00-4.8 [facility] Lymphocytes/100 WBC Auto (Bl d)Ordered By: Reinaldo Amor on 09-25-2021 Lymphocytes/100 WBC (Bld) 28.1 % . [facility] MCH Auto (RBC) [Entitic mass ]Ordered By: Reinaldo Amor on 09-25-2021 MCH (RBC) [Entitic mass] 32.5 pg 24.7-34.3 [facility] MCHC Auto (RBC) [Mass/Vol]Or dered By: Reinaldo Amor on 09-25-2021 MCHC (RBC) [Mass/Vol] 33.7 g/dL 32.0-35.0 [facility] MCV Auto (RBC) [Entitic vol] Ordered By: Reinaldo Amor on 09-25-2021 MCV (RBC) [Entitic vol] 96.7 fL 80-100 [facility] Monocytes Auto (Bld) [#/Vol] Ordered By: Reinaldo Amor on 09-25-2021 Monocytes (Bld) [#/Vol] 0.8 10*3/uL 0.0-0.8 [facility] Monocytes/100 WBC Auto (Bld) Ordered By: Reinaldo Amor on 09-25-2021 Monocytes/100 WBC (Bld) 8.2 % . [facility] Neutrophils Auto (Bld) [#/Vo l]Ordered By: Reinaldo Amor on 09-25-2021 Neutrophils (Bld) [#/Vol] 5.6 10*3/uL 1.8-7.7 [facility] Neutrophils/100 WBC Auto (Bl d)Ordered By: Reinaldo Amor on 09-25-2021 Neutrophils/100 WBC (Bld) 60.6 % . [facility] No Panel InformationOrdered By: PROVIDER TEMP on 09-25-2021 Estimated GFR () > 60 mL/Min [facility] Comment on above: GFR estimated refere nce range: According to KDOQI guidelines, <60 ml/min/1.73m2 is sufficient to diagnose a patient with chronic kidney disease. Pharmacy Creatinine Clearance (Chem 63.47 [facility] Platelet mean volume Auto (B ld) [Entitic vol]Ordered By: Reinaldo Amor on 09-25-2021 Platelet mean volume (Bld) [Entitic vol] 8.6 fL 6.3-10.7 [facility] Platelets Auto (Bld) [#/Vol] Ordered By: Reinaldo Amor on 09-25-2021 Platelets (Bld) [#/Vol] 221 10*3/uL 150-450 [facility] Protein [Mass/volume] in Ser um or PlasmaOrdered By: PROVIDER TEMP on 09-25-2021 Protein [Mass/Vol] 7.6 g/dL 6.1-7.9 [facility] RBC Auto (Bld) [#/Vol]Ordere d By: Reinaldo Amor on 09-25-2021 RBC (Bld) [#/Vol] 4.35 10*6/uL 3.60-5.00 [facility] Serum or plasma alanine hughes otransferase measurement without P-5'-P (enzymatic activiOrdered By: PROVIDER TEMP on 09-25-2021 ALT No additional P-5'-P [Catalytic activity/Vol] 14 U/L 10-60 [facility] Serum or plasma albumin/glob ulin mass ratioOrdered By: PROVIDER TEMP on 09-25-2021 Albumin/Globulin [Mass ratio] 1.3 {ratio} [facility] Serum or plasma alkaline jaqueline sphatase measurement (enzymatic activity/volume)Ordered By: PROVIDER TEMP on 09-25-2021 ALP [Catalytic activity/Vol] 127 U/L 32-92 [facility] Serum or plasma amylase priscilla urement (enzymatic activity/volume)Ordered By: Reinaldo Amor on 09-25-2021 Amylase [Catalytic activity/Vol] 171 U/L 28-100 [facility] Serum or plasma aspartate am inotransferase measurement (enzymatic activity/volume)Ordered By: PROVIDER TEMP on 09-25-2021 AST [Catalytic activity/Vol] 21 U/L 10-42 [facility] Serum or plasma calcium priscilla urement (mass/volume)Ordered By: PROVIDER TEMP on 09-25-2021 Calcium [Mass/Vol] 10.1 mg/dL 8.2-10.2 [facility] Serum or plasma chloride daron surement (moles/volume)Ordered By: PROVIDER TEMP on 09-25-2021 Chloride [Moles/Vol] 103 mmol/L 95-114 [facility] Serum or plasma glucose priscilla urement (mass/volume)Ordered By: PROVIDER TEMP on 09-25-2021 Glucose [Mass/Vol] 93 mg/dL 70-100 [facility] Comment on above: ADA recommended refe rence range Random Glucose Reference Range is dependent on time and content of last meal. Glucose of more than 200 mg/dL in a nonstressed, ambulatory subject supports the diagnosis of Diabetes Mellitus. Serum or plasma potassium me asurement (moles/volume)Ordered By: PROVIDER TEMP on 09-25-2021 Potassium [Moles/Vol] 3.9 mmol/L 3.5-5.1 [facility] Serum or plasma sodium measu rement (moles/volume)Ordered By: PROVIDER TEMP on 09-25-2021 Sodium [Moles/Vol] 137 mmol/L 136-146 [facility] Serum or plasma total biliru bin measurement (mass/volume)Ordered By: PROVIDER TEMP on 09-25-2021 Bilirubin [Mass/Vol] 0.3 mg/dL 0.3-1.2 [facility] Serum or plasma total carbon dioxide measurement (moles/volume)Ordered By: PROVIDER TEMP on 09-25-2021 CO2 [Moles/Vol] 26.3 mmol/L 22.0-30.0 [facility] Serum or plasma urea nitroge n measurement (mass/volume)Ordered By: PROVIDER TEMP on 09-25-2021 Urea nitrogen [Mass/Vol] 8 mg/dL 9- [facility] AMYLASEon 09-17-2021 Amylase [Catalytic activity/Vol] 142 U/L Critically high 25-115 [facility] Comment on above: Performed By: #### A MY, CMP, LIPA ####[facility] [address] [place] [address]Dr. Elisaeli Fisher CBC AUTO DIFFon 09-17-2021 BASO # 0.1 103/ul Normal 0.0-0.1 [facility] Comment on above: Performed By: #### C BC ####[facility] [address] [place] [address]Dr. Keturah Fisher Basophils/100 WBC (Bld) 0.7 % Normal 0.2-2.0 [facility] Comment on above: Performed By: #### C BC ####[facility] [address] [place] [address]Dr. Elisaeli Fisher EO # 0.1 103/ul Normal 0.0-0.7 [facility] Comment on above: Performed By: #### C BC ####[facility] [address] [place] [address]Dr. Elisaeli Fisher Eosinophils/100 WBC (Bld) 1.3 % Normal 0.9-7.0 [facility] Comment on above: Performed By: #### C BC ####[facility] [address] [place] [id number]. Keturah Fisher Erythrocyte distribution width (RBC) [Ratio] 13.2 % Normal 11.0-15.0 [facility] Comment on above: Performed By: #### C BC ####[facility] [address] [place] [id number]. Keturah Fisher Hematocrit (Bld) [Volume fraction] 43.7 % Normal 36.0-48.0 [facility] Comment on above: Performed By: #### C BC ####[facility] [address] [place], [place] [address]Dr. Keturah Fisher Hemoglobin (Bld) [Mass/Vol] 14.7 g/dL Normal 12.0-16.0 [facility] Comment on above: Performed By: #### C BC ####[facility] [address] [place], [place] [address]Dr. Keturah Fisher IG # 0.01 10e3/ul Normal 0.00-0.03 [facility] Comment on above: Performed By: #### C BC ####[facility] [address] [place], [place] [address]Dr. Keturah Fisher IG % 0.1 % Normal 0.0-0.5 [facility] Comment on above: Performed By: #### C BC ####[facility] [address] [place], [place] [address]Dr. Keturah Fisher LYMPH # 2.7 103/ul Normal 1.2-3.8 [facility] Comment on above: Performed By: #### C BC ####[facility] [address] [place], [place] [address]Dr. Keturah Fisher Lymphocytes/100 WBC (Bld) 30.1 % Normal 20.5-60.0 [facility] Comment on above: Performed By: #### C BC ####[facility] [address] [place], [place] [address]Dr. Keturah Fisher MANUAL DIFF REQ NO Normal [facility] Comment on above: Performed By: #### C BC ####[facility] [address] [place] [address]Dr. Keturah Fisher MCH (RBC) [Entitic mass] 32.4 pg Normal 26.7-34.0 [facility] Comment on above: Performed By: #### C BC ####[facility] [address] [place] [address]Dr. Keturah Fisher MCHC (RBC) [Mass/Vol] 33.6 g/dL Normal 29.9-35.2 [facility] Comment on above: Performed By: #### C BC ####[facility] [address] [place], [place] [address]Dr. Keturah Fisher MCV (RBC) [Entitic vol] 96.3 fL Normal 81.0-99.0 [facility] Comment on above: Performed By: #### C BC ####[facility] [address] [place], [place] [address]Dr. Keturah Phillip MONO # 0.8 103/ul Normal 0.3-0.8 [facility] Comment on above: Performed By: #### C BC ####[facility] [address] [place], [place] [address]Dr. Keturah Phillip Monocytes/100 WBC (Bld) 8.7 % Normal 1.7-12.0 [facility] Comment on above: Performed By: #### C BC ####[facility] [address] [place], [place] [address]Dr. Keturah Fisher NEUT # 5.4 103/ul Normal 1.4-6.5 [facility] Comment on above: Performed By: #### C BC ####[facility] [address] [place], [place] [address]Dr. Keturah Phillip Neutrophils/100 WBC (Bld) 59.1 % Normal 43.0-75.0 [facility] Comment on above: Performed By: #### C BC ####[facility] [address] [place], [place] [address]Dr. Keturah Phillip Platelet mean volume (Bld) [Entitic vol] 9.6 fL Normal 9.5-13.5 [facility] Comment on above: Performed By: #### C BC ####[facility] [address] [place], [place] [address]Us. Elisaeli Fisher PLT 272 103/ul Normal 150-450 [facility] Comment on above: Performed By: #### C BC ####[facility] [address] [place], [place] [address]Ff. Keturah Fisher RBC 4.54 106/ul Normal 4.20-5.40 [facility] Comment on above: Performed By: #### C BC ####[facility] [address] [place], [place] [address]Or. Keturah Fisher WBC 9.1 103/ul Normal 4.0-11.0 [facility] Comment on above: Performed By: #### C BC ####[facility] [address] [place] [id number] Fisher ETHANOL (BLD ALC)on 09-18-19 22 ALC NOTE NOTE: 80 mg/dl is th e legal limit for a blood alcohol level Normal [facility] Comment on above: Performed By: #### L IPA, CMP, CRP, NAT #### [facility] [address] [address] [address] Keturah Fisher Ethanol [Mass/Vol] mg/dL Normal [facility] Comment on above: Performed By: #### L IPA, CMP, CRP, NAT #### [facility] [address] [address] [address] Keturah Fisher LIPASEon 09-17-2021 Lipase [Catalytic activity/Vol] 524.0 U/L Critically high 73.0-393.0 [facility] Comment on above: Performed By: #### C BC #### [facility] [address] [address] [address] Keturah Fisher PROF 14(COMP METB)on 022 Albumin [Mass/Vol] 3.9 g/dL Normal 3.4-5.0 [facility] Comment on above: Performed By: #### C BC #### [facility] [address] [address] [address] Keturah Fisher Albumin/Globulin [Mass ratio] 1.1 {ratio} Normal [facility] Comment on above: Performed By: #### C BC #### [facility] [address] [address] [address] Keturah Fisher ALP [Catalytic activity/Vol] 136 U/L Critically high 46-116 [facility] Comment on above: Performed By: #### C BC #### [facility] [address] [address] [address] Keturah Fisher ALT [Catalytic activity/Vol] 21 U/L Normal 14-59 [facility] Comment on above: Performed By: #### C BC #### [facility] [address] [address] [address] Keturah Fisher Anion gap [Moles/Vol] 12.7 mmol/L Normal [facility] Comment on above: Performed By: #### C BC #### [facility] [address] [place] [address] Dr. Keturah Fisher AST [Catalytic activity/Vol] 16 U/L Normal 15-37 [facility] Comment on above: Performed By: #### C BC #### [facility] [address] [place] [address] Dr. Keturah Fisher Bilirubin [Mass/Vol] 0.2 mg/dL Normal 0.2-1.0 [facility] Comment on above: Performed By: #### C BC #### [facility] [address] [address] [address] Keturah Fisher Calcium [Mass/Vol] 9.9 mg/dL Normal 8.5-10.1 [facility] Comment on above: Performed By: #### C BC #### [facility] [address] [address] [address] Keturah Fisher Chloride [Moles/Vol] 106 mmol/L Normal 98-107 [facility] Comment on above: Performed By: #### C BC #### [facility] [address] [address] [address] Keturah Fisher CO2 [Moles/Vol] 25.9 mmol/L Normal 21.0-32.0 [facility] Comment on above: Performed By: #### C BC #### [facility] [address] [address] [address] Keturah Fisher Creatinine [Mass/Vol] 0.96 mg/dL Normal 0.55-1.02 [facility] Comment on above: Performed By: #### C BC #### [facility] [address] [address] [address] Keturah Fisher EGFR-AF NAMIBIAN >60 Normal >=60 [facility] Comment on above: Performed By: #### C BC #### [facility] [address] [address] [address] Keturah Fisher EGFR-NON AF NAMIBIAN >60 Normal >=60 [facility] Comment on above: Performed By: #### C BC #### [facility] [address] [place] [address] Dr. Keturah Fisher Globulin (S) [Mass/Vol] 3.5 g/dL Normal [facility] Comment on above: Performed By: #### C BC #### [facility] [address] [place] [address] Dr. Keturah Fisher Glucose [Mass/Vol] 113 mg/dL Critically high 74-106 [facility] Comment on above: Performed By: #### C BC #### [facility] [address] [place] [address] Dr. Keturah Fisher Potassium [Moles/Vol] 3.6 mmol/L Normal 3.5-5.1 [facility] Comment on above: Performed By: #### C BC #### [facility] [address] [place] [address] Dr. Keturah Fisher Protein [Mass/Vol] 7.4 g/dL Normal 6.4-8.2 [facility] Comment on above: Performed By: #### C BC #### [facility] [address] [place] [address] Dr. Keturah Fisher Sodium [Moles/Vol] 141 mmol/L Normal 136-145 [facility] Comment on above: Performed By: #### C BC #### [facility] [address] [place] [address] Dr. Keturah Fisher Urea nitrogen [Mass/Vol] 8.0 mg/dL Normal 7.0-18.0 [facility] Comment on above: Performed By: #### C BC #### [facility] [address] [address] [address] Keturah Fisher Urea nitrogen/Creatinine [Mass ratio] 8.3 mg/mg Normal [facility] Comment on above: Performed By: #### C BC #### [facility] [address] [address] [address] Keturah Fisher AMYLASEon 08-26-2021 Amylase [Catalytic activity/Vol] 94 U/L Normal 25-115 [facility] Comment on above: Performed By: #### A MY, CMP, LIPA ####[facility] [address] [address]Dr. Keturah Fisher CBC AUTO DIFFon 08-26-2021 BASO # 0.1 103/ul Normal 0.0-0.1 [facility] Comment on above: Performed By: #### L IPA, CMP, CRP, NAT #### [facility] [address] [address] [address] Keturah Fisher Basophils/100 WBC (Bld) 0.7 % Normal 0.2-2.0 [facility] Comment on above: Performed By: #### L IPA, CMP, CRP, NAT #### [facility] [address] [address] [address] Keturah Fisher EO # 0.2 103/ul Normal 0.0-0.7 [facility] Comment on above: Performed By: #### L IPA, CMP, CRP, NAT #### [facility] [address] [address] [address] Keturah Fisher Eosinophils/100 WBC (Bld) 2.5 % Normal 0.9-7.0 [facility] Comment on above: Performed By: #### L IPA, CMP, CRP, NAT #### [facility] [address] [address] [address] Keturah Fisher Erythrocyte distribution width (RBC) [Ratio] 13.1 % Normal 11.0-15.0 [facility] Comment on above: Performed By: #### L IPA, CMP, CRP, NAT #### [facility] [address] [place] [address] Dr. Keturah Fisher Hematocrit (Bld) [Volume fraction] 42.4 % Normal 36.0-48.0 [facility] Comment on above: Performed By: #### L IPA, CMP, CRP, NAT #### [facility] [address] [place] [address] Dr. Keturah Fisher Hemoglobin (Bld) [Mass/Vol] 14.1 g/dL Normal 12.0-16.0 [facility] Comment on above: Performed By: #### L IPA, CMP, CRP, NAT #### [facility] [address] [place] [address] Dr. Keturah Fisher IG # 0.03 10e3/ul Normal 0.00-0.03 [facility] Comment on above: Performed By: #### L IPA, CMP, CRP, NAT #### [facility] [address] [place] [address] Dr. Keturah Fisher IG % 0.3 % Normal 0.0-0.5 [facility] Comment on above: Performed By: #### L IPA, CMP, CRP, NAT #### [facility] [address] [place] [address] Dr. Keturah Fisher LYMPH # 2.6 103/ul Normal 1.2-3.8 [facility] Comment on above: Performed By: #### L IPA, CMP, CRP, NAT #### [facility] [address] [place] [address] Dr. Keturah Fisher Lymphocytes/100 WBC (Bld) 27.7 % Normal 20.5-60.0 [facility] Comment on above: Performed By: #### L IPA, CMP, CRP, NAT #### [facility] [address] [place] [address] Dr. Keturah Fisher MANUAL DIFF REQ NO Normal [facility] Comment on above: Performed By: #### L IPA, CMP, CRP, NAT #### [facility] [address] [place], [place] [id number] Dr. Keturah Fisher MCH (RBC) [Entitic mass] 32.6 pg Normal 26.7-34.0 [facility] Comment on above: Performed By: #### L IPA, CMP, CRP, NAT #### [facility] [address] [place] [address] Dr. Keturah Fisher MCHC (RBC) [Mass/Vol] 33.3 g/dL Normal 29.9-35.2 [facility] Comment on above: Performed By: #### L IPA, CMP, CRP, NAT #### [facility] [address] [place] [address] Dr. Keturah Fisher MCV (RBC) [Entitic vol] 97.9 fL Normal 81.0-99.0 [facility] Comment on above: Performed By: #### L IPA, CMP, CRP, NAT #### [facility] [address] [place] [address] Dr. Keturah Fisher MONO # 1.2 103/ul Critically high 0.3-0.8 [facility] Comment on above: Performed By: #### L IPA, CMP, CRP, NAT #### [facility] [address] [place] [address] Dr. Keturah Fisher Monocytes/100 WBC (Bld) 12.9 % Critically high 1.7-12.0 [facility] Comment on above: Performed By: #### L IPA, CMP, CRP, NAT #### [facility] [address] [place] [address] Dr. Keturah Fisher NEUT # 5.3 103/ul Normal 1.4-6.5 [facility] Comment on above: Performed By: #### L IPA, CMP, CRP, NAT #### [facility] [address] [place] [address] Dr. Keturah Fisher Neutrophils/100 WBC (Bld) 55.9 % Normal 43.0-75.0 [facility] Comment on above: Performed By: #### L IPA, CMP, CRP, NAT #### [facility] [address] [place] [address] Dr. Keturah Fisher Platelet mean volume (Bld) [Entitic vol] 9.8 fL Normal 9.5-13.5 [facility] Comment on above: Performed By: #### L IPA, CMP, CRP, NAT #### [facility] [address] [address] [address] Keturah Fisher PLT 229 103/ul Normal 150-450 [facility] Comment on above: Performed By: #### L IPA, CMP, CRP, NAT #### [facility] [address] [address] [address] Keturah Fisher RBC 4.33 106/ul Normal 4.20-5.40 [facility] Comment on above: Performed By: #### L IPA, CMP, CRP, NAT #### [facility] [address] [address] [address] Keturah Fisher WBC 9.5 103/ul Normal 4.0-11.0 [facility] Comment on above: Performed By: #### L IPA, CMP, CRP, NAT #### [facility] [address] [address] [address] Keturah Fisher LIPASEon 08-26-2021 Lipase [Catalytic activity/Vol] 146.0 U/L Normal 73.0-393.0 [facility] Comment on above: Performed By: #### A MY, CMP, LIPA ####[facility] [address] [address]Dr. Keturah Fisher PROF 14(COMP METB)on 022 Albumin [Mass/Vol] 3.5 g/dL Normal 3.4-5.0 [facility] Comment on above: Performed By: #### A MY, CMP, LIPA ####[facility] [address] [address]Dr. Keturah Fisher Albumin/Globulin [Mass ratio] 1.1 {ratio} Normal [facility] Comment on above: Performed By: #### A MY, CMP, LIPA ####[facility] [address] [address]Dr. Keturah Fisher ALP [Catalytic activity/Vol] 139 U/L Critically high 46-116 [facility] Comment on above: Performed By: #### A MY, CMP, LIPA ####[facility] [address] [address]Dr. Keturah Fisher ALT [Catalytic activity/Vol] 21 U/L Normal 14-59 [facility] Comment on above: Performed By: #### A MY, CMP, LIPA ####[facility] [address] [address]Dr. Keturah Fisher Anion gap [Moles/Vol] 11.4 mmol/L Normal [facility] Comment on above: Performed By: #### A MY, CMP, LIPA ####[facility] [address] [place], [place] [address]Dr. Keturah Fisher AST [Catalytic activity/Vol] 21 U/L Normal 15-37 [facility] Comment on above: Performed By: #### A MY, CMP, LIPA ####[facility] [address] [place], [place] [address]Dr. Keturah Fisher Bilirubin [Mass/Vol] 0.2 mg/dL Normal 0.2-1.0 [facility] Comment on above: Performed By: #### A MY, CMP, LIPA ####[facility] [address] [place], [place] [address]Dr. Keturah Fisher Calcium [Mass/Vol] 9.2 mg/dL Normal 8.5-10.1 [facility] Comment on above: Performed By: #### A MY, CMP, LIPA ####[facility] [address] [address]Dr. Keturah Fisher Chloride [Moles/Vol] 107 mmol/L Normal 98-107 [facility] Comment on above: Performed By: #### A MY, CMP, LIPA ####[facility] [address] [place], [place] [address]Dr. Keturah Fisher CO2 [Moles/Vol] 27.9 mmol/L Normal 21.0-32.0 [facility] Comment on above: Performed By: #### A MY, CMP, LIPA ####[facility] [address] [place], [place] [address]Dr. Keturah Fisher Creatinine [Mass/Vol] 0.84 mg/dL Normal 0.55-1.02 [facility] Comment on above: Performed By: #### A MY, CMP, LIPA ####[facility] [address] [address]Dr. Keturah Fisher EGFR-AF NAMIBIAN >60 Normal >=60 [facility] Comment on above: Performed By: #### A MY, CMP, LIPA ####[facility] [address] [address]Dr. Keturah Fisher EGFR-NON AF NAMIBIAN >60 Normal >=60 [facility] Comment on above: Performed By: #### A MY, CMP, LIPA ####[facility] [address] [address]Dr. Keturah Fisher Globulin (S) [Mass/Vol] 3.3 g/dL Normal [facility] Comment on above: Performed By: #### A MY, CMP, LIPA ####[facility] [address] [address]Dr. Keturah Fisher Glucose [Mass/Vol] 106 mg/dL Normal 74-106 [facility] Comment on above: Performed By: #### A MY, CMP, LIPA ####[facility] [address] [address]Dr. Keturah Fisher Potassium [Moles/Vol] 4.3 mmol/L Normal 3.5-5.1 [facility] Comment on above: Performed By: #### A MY, CMP, LIPA ####[facility] [address] [address]Dr. Keturah Fisher Protein [Mass/Vol] 6.8 g/dL Normal 6.4-8.2 [facility] Comment on above: Performed By: #### A MY, CMP, LIPA ####[facility] [address] [address]Dr. Keturah Fisher Sodium [Moles/Vol] 142 mmol/L Normal 136-145 [facility] Comment on above: Performed By: #### A MY, CMP, LIPA ####[facility] [address] [place], [place] [address]Bk. Keturah Fisher Urea nitrogen [Mass/Vol] 11.0 mg/dL Normal 7.0-18.0 [facility] Comment on above: Performed By: #### A MY, CMP, LIPA ####[facility] [address] [place], [place] [address]Jm. Keturah Fisher Urea nitrogen/Creatinine [Mass ratio] 13.1 mg/mg Normal [facility] Comment on above: Performed By: #### A MY, CMP, LIPA ####[facility] [address] [place], [place] [address]HuGopal Fisher XR ABD FLAT UP_PA Jorje 08-26 [...] MILADIS BARRERA Date: 2021-08-26 04:59 Normal [facility] AMYLASEon 08-22-2021 Amylase [Catalytic activity/Vol] 155 U/L Critically high 25-115 [facility] Comment on above: Performed By: #### C MP, NAT, LIPA #### [facility] [address] [place], [place] [address] Dr. Keturah Fisher CBC AUTO DIFFon 08-22-2021 BASO # 0.1 103/ul Normal 0.0-0.1 [facility] Comment on above: Performed By: #### L IPA, CMP, CRP, NAT #### [facility] [address] [place] [address] Dr. Keturah Fisher Basophils/100 WBC (Bld) 0.7 % Normal 0.2-2.0 [facility] Comment on above: Performed By: #### L IPA, CMP, CRP, NAT #### [facility] [address] [place] [address] Dr. Keturah Fisher EO # 0.1 103/ul Normal 0.0-0.7 [facility] Comment on above: Performed By: #### L IPA, CMP, CRP, NAT #### [facility] [address] [place] [address] Dr. Keturah Fisher Eosinophils/100 WBC (Bld) 0.7 % Critically low 0.9-7.0 [facility] Comment on above: Performed By: #### L IPA, CMP, CRP, NAT #### [facility] [address] [place] [address] Dr. Keturah Fisher Erythrocyte distribution width (RBC) [Ratio] 13.2 % Normal 11.0-15.0 [facility] Comment on above: Performed By: #### L IPA, CMP, CRP, NAT #### [facility] [address] [place] [address] Dr. Keturah Fisher Hematocrit (Bld) [Volume fraction] 41.1 % Normal 36.0-48.0 [facility] Comment on above: Performed By: #### L IPA, CMP, CRP, NAT #### [facility] [address] [place] [address] Dr. Keturah Fisher Hemoglobin (Bld) [Mass/Vol] 13.8 g/dL Normal 12.0-16.0 [facility] Comment on above: Performed By: #### L IPA, CMP, CRP, NAT #### [facility] [address] [place] [address] Dr. Keturah Fisher IG # 0.03 10e3/ul Normal 0.00-0.03 [facility] Comment on above: Performed By: #### L IPA, CMP, CRP, NAT #### [facility] [address] [place] [address] Dr. Keturah Fisher IG % 0.2 % Normal 0.0-0.5 [facility] Comment on above: Performed By: #### L IPA, CMP, CRP, NAT #### [facility] [address] [address] [address] Keturah Fisher LYMPH # 2.6 103/ul Normal 1.2-3.8 [facility] Comment on above: Performed By: #### L IPA, CMP, CRP, NAT #### [facility] [address] [place] [address] Dr. Keturah Fisher Lymphocytes/100 WBC (Bld) 21.4 % Normal 20.5-60.0 [facility] Comment on above: Performed By: #### L IPA, CMP, CRP, NAT #### [facility] [address] [place] [address] Dr. Keturah Fisher MANUAL DIFF REQ NO Normal [facility] Comment on above: Performed By: #### L IPA, CMP, CRP, NAT #### [facility] [address] [place] [address] Dr. Keturah Fisher MCH (RBC) [Entitic mass] 32.2 pg Normal 26.7-34.0 [facility] Comment on above: Performed By: #### L IPA, CMP, CRP, NAT #### [facility] [address] [place] [address] Dr. Keturah Fisher MCHC (RBC) [Mass/Vol] 33.6 g/dL Normal 29.9-35.2 [facility] Comment on above: Performed By: #### L IPA, CMP, CRP, NAT #### [facility] [address] [place] [address] Dr. Keturah Fisher MCV (RBC) [Entitic vol] 95.8 fL Normal 81.0-99.0 [facility] Comment on above: Performed By: #### L IPA, CMP, CRP, NAT #### [facility] [address] [place] [address] Dr. Keturah Fisher MONO # 0.9 103/ul Critically high 0.3-0.8 [facility] Comment on above: Performed By: #### L IPA, CMP, CRP, NAT #### [facility] [address] [place] [address] Dr. Keturah Fisher Monocytes/100 WBC (Bld) 7.6 % Normal 1.7-12.0 [facility] Comment on above: Performed By: #### L IPA, CMP, CRP, NAT #### [facility] [address] [place] [address] Dr. Keturah Fisher NEUT # 8.5 103/ul Critically high 1.4-6.5 [facility] Comment on above: Performed By: #### L IPA, CMP, CRP, NAT #### [facility] [address] [place] [address] Dr. Keturah Fisher Neutrophils/100 WBC (Bld) 69.4 % Normal 43.0-75.0 [facility] Comment on above: Performed By: #### L IPA, CMP, CRP, NAT #### [facility] [address] [place] [address] Dr. Keturah Fisher Platelet mean volume (Bld) [Entitic vol] 9.5 fL Normal 9.5-13.5 [facility] Comment on above: Performed By: #### L IPA, CMP, CRP, NAT #### [facility] [address] [place] [address] Dr. Keturah Fisher PLT 261 103/ul Normal 150-450 [facility] Comment on above: Performed By: #### L IPA, CMP, CRP, NAT #### [facility] [address] [place] [address] Dr. Keturah Fisher RBC 4.29 106/ul Normal 4.20-5.40 [facility] Comment on above: Performed By: #### L IPA, CMP, CRP, NAT #### [facility] [address] [place] [address] Dr. Keturah Fisher WBC 12.2 103/ul Critically high 4.0-11.0 [facility] Comment on above: Performed By: #### L IPA, CMP, CRP, NAT #### [facility] [address] [place] [address] Dr. Keturah Fisher LIPASEon 08-22-2021 Lipase [Catalytic activity/Vol] 419.0 U/L Critically high 73.0-393.0 [facility] Comment on above: Performed By: #### C MP, NAT, LIPA #### [facility] [address] [place] [address] Dr. Keturah Fisher PROF 14(COMP METB)on 022 Albumin [Mass/Vol] 3.9 g/dL Normal 3.4-5.0 [facility] Comment on above: Performed By: #### C MP, NAT, LIPA #### [facility] [address] [place] [address] Dr. Keturah Fisher Albumin/Globulin [Mass ratio] 1.2 {ratio} Normal [facility] Comment on above: Performed By: #### C MP, NAT, LIPA #### [facility] [address] [place] [address] Dr. Keturah Fisher ALP [Catalytic activity/Vol] 137 U/L Critically high 46-116 [facility] Comment on above: Performed By: #### C MP, NAT, LIPA #### [facility] [address] [place] [address] Dr. Keturah Fisher ALT [Catalytic activity/Vol] 22 U/L Normal 14-59 [facility] Comment on above: Performed By: #### C MP, NAT, LIPA #### [facility] [address] [place] [address] Dr. Keturah Fisher Anion gap [Moles/Vol] 12.9 mmol/L Normal [facility] Comment on above: Performed By: #### C MP, NAT, LIPA #### [facility] [address] [place] [address] Dr. Keturah Fisher AST [Catalytic activity/Vol] 20 U/L Normal 15-37 [facility] Comment on above: Performed By: #### C MP, NAT, LIPA #### [facility] [address] [place] [address] Dr. Keturah Fisher Bilirubin [Mass/Vol] 0.2 mg/dL Normal 0.2-1.0 [facility] Comment on above: Performed By: #### C NAT MEDEL, LIPA #### [facility] [address] [address] [address] Keturah Fisher Calcium [Mass/Vol] 9.5 mg/dL Normal 8.5-10.1 [facility] Comment on above: Performed By: #### C NAT MEDEL, LIPA #### [facility] [address] [place] [address] Dr. Keturah Fisher Chloride [Moles/Vol] 104 mmol/L Normal 98-107 [facility] Comment on above: Performed By: #### C NAT MEDEL LIPA #### [facility] [address] [place] [address] Dr. Keturah Fisher CO2 [Moles/Vol] 23.7 mmol/L Normal 21.0-32.0 [facility] Comment on above: Performed By: #### C NAT MEDEL, LIPA #### [facility] [address] [place] [address] Dr. Keturah Fisher Creatinine [Mass/Vol] 0.85 mg/dL Normal 0.55-1.02 [facility] Comment on above: Performed By: #### C NAT MEDEL, LIPA #### [facility] [address] [place] [address] Dr. Keturah Fisher EGFR-AF NAMIBIAN >60 Normal >=60 [facility] Comment on above: Performed By: #### C NAT MEDEL, LIPA #### [facility] [address] [place] [address] Dr. Keturah Fisher EGFR-NON AF NAMIBIAN >60 Normal >=60 [facility] Comment on above: Performed By: #### C NAT MEDEL, LIPA #### [facility] [address] [place] [address] Dr. Keturah Fisher Globulin (S) [Mass/Vol] 3.3 g/dL Normal [facility] Comment on above: Performed By: #### C NAT MEDEL, LIPA #### [facility] [address] [address] [address] Keturah Fisher Glucose [Mass/Vol] 130 mg/dL Critically high 74-106 [facility] Comment on above: Performed By: #### C NAT MEDEL, LIPA #### [facility] [address] [address] [address] Keturah Fisher Potassium [Moles/Vol] 3.6 mmol/L Normal 3.5-5.1 [facility] Comment on above: Performed By: #### C LIZY NAT, LIPA #### [facility] [address] [address] [address] Keturah Fisher Protein [Mass/Vol] 7.2 g/dL Normal 6.4-8.2 [facility] Comment on above: Performed By: #### C LIZY NAT, LIPA #### [facility] [address] [address] [address] Keturah Fisher Sodium [Moles/Vol] 137 mmol/L Normal 136-145 [facility] Comment on above: Performed By: #### C NAT MEDEL, LIPA #### [facility] [address] [address] [address] Keturah Fisher Urea nitrogen [Mass/Vol] 9.0 mg/dL Normal 7.0-18.0 [facility] Comment on above: Performed By: #### C LIZY NAT, LIPA #### [facility] [address] [address] [address] Keturah Fisher Urea nitrogen/Creatinine [Mass ratio] 10.6 mg/mg Normal [facility] Comment on above: Performed By: #### C LIZY NAT, LIPA #### [facility] [address] [address] [address] Keturah Fisher XR ABD FLAT UP_PA [...] TRI HANSON Date: 2021-08-22 14:54 Normal [facility] CBC AUTO DIFFon 08-13-2021 BASO # 0.1 103/ul Normal 0.0-0.1 [facility] [facility] Comment on above: Performed By: #### C BC ####[facility] Agex[address] [place], [place] [address]Dr. Keturah Fisher Basophils/100 WBC (Bld) 0.6 % Normal 0.2-2.0 [facility] Comment on above: Performed By: #### C BC ####[facility] [address] [place], [place] [address]Dr. Keturah Fisher EO # 0.1 103/ul Normal 0.0-0.7 [facility] Comment on above: Performed By: #### C BC ####[facility] Qcl[address] [place], [place] [address]Dr. Keturah Fisher Eosinophils/100 WBC (Bld) 1.1 % Normal 0.9-7.0 [facility] Comment on above: Performed By: #### C BC ####[facility] Eznslfbdme[address] [place], [place] [address]Dr. Keturah Fisher Erythrocyte distribution width (RBC) [Ratio] 12.6 % Normal 11.0-15.0 [facility] Comment on above: Performed By: #### C BC ####[facility] V[address] [place], [place] [address]Dr. Keturah Fisher Hematocrit (Bld) [Volume fraction] 42.3 % Normal 36.0-48.0 [facility] Comment on above: Performed By: #### C BC ####[facility] Hpcl[address] [place], [place] [address]Dr. Keturah Fisher Hemoglobin (Bld) [Mass/Vol] 14.1 g/dL Normal 12.0-16.0 [facility] Comment on above: Performed By: #### C BC ####[facility] [address] [place] [id number]. Keturah Fisher IG # 0.03 10e3/ul Normal 0.00-0.03 [facility] Comment on above: Performed By: #### C BC ####[facility] [address] [place] [id number]. Keturah Phillip IG % 0.3 % Normal 0.0-0.5 [facility] Comment on above: Performed By: #### C BC ####[facility] [address] [place] [id number]. Keturah Phillip LYMPH # 2.4 103/ul Normal 1.2-3.8 [facility] Comment on above: Performed By: #### C BC ####[facility] [address] [place] [address]Dr. Keturah Fisher Lymphocytes/100 WBC (Bld) 22.3 % Normal 20.5-60.0 [facility] Comment on above: Performed By: #### C BC ####[facility] [address] [place] [id number]. Elisaeli Fisher MANUAL DIFF REQ NO Normal [facility] Comment on above: Performed By: #### C BC ####[facility] [address] [place] [id number]. Keturah Phillip MCH (RBC) [Entitic mass] 32.5 pg Normal 26.7-34.0 [facility] Comment on above: Performed By: #### C BC ####[facility] [address] [place] [id number]. Keturah Phillip MCHC (RBC) [Mass/Vol] 33.3 g/dL Normal 29.9-35.2 [facility] Comment on above: Performed By: #### C BC ####[facility] [address] [place] [id number]. Keturah Phillip MCV (RBC) [Entitic vol] 97.5 fL Normal 81.0-99.0 [facility] Comment on above: Performed By: #### C BC ####[facility] [address] [place] [id number]. Keturah Fisher MONO # 1.0 103/ul Critically high 0.3-0.8 [facility] Comment on above: Performed By: #### C BC ####[facility] [address] [place] [id number]. Keturah Fisher Monocytes/100 WBC (Bld) 8.7 % Normal 1.7-12.0 [facility] Comment on above: Performed By: #### C BC ####[facility] [address] [place] [id number]. Keturah Fisher NEUT # 7.3 103/ul Critically high 1.4-6.5 [facility] Comment on above: Performed By: #### C BC ####[facility] [address] [place] [address]Dr. Keturah Fisher Neutrophils/100 WBC (Bld) 67.0 % Normal 43.0-75.0 [facility] Comment on above: Performed By: #### C BC ####[facility] Av[address] [place], [place] [id number]. Keturah Fisher Platelet mean volume (Bld) [Entitic vol] 9.5 fL Normal 9.5-13.5 [facility] Comment on above: Performed By: #### C BC ####[facility] [address] [place], [place] [id number]. Keturah Fisher PLT 272 103/ul Normal 150-450 [facility] Comment on above: Performed By: #### C BC ####[facility] [address] [place], [place] [address]Dr. Keturah Fisher RBC 4.34 106/ul Normal 4.20-5.40 [facility] Comment on above: Performed By: #### C BC ####[facility] [address] [place] [id number]. Keturah Fisher WBC 10.9 103/ul Normal 4.0-11.0 [facility] Comment on above: Performed By: #### C BC ####[facility] [place], [place] [address]Pa. Ket[address] CT ABD/PELV W CONon 08-14-19 [...] HEBERT MCPHERSON Date: 2021-08-13 17:14 Normal [facility] ER URINE PROFILEon 2 Bilirubin Ql (U) Negative Normal NEGATIVE [facility] Comment on above: Performed By: #### C BC #### [facility] [address] [place] [address] Dr. Keturah Fisher Clarity (U) CLEAR Normal CLEAR [facility] Comment on above: Performed By: #### C BC #### [facility] [address] [place] [address] Dr. Keturah Fisher Color (U) LT. YELLOW Normal YELLOW [facility] Comment on above: Performed By: #### C BC #### [facility] [address] [place] [address] Dr. Keturah Fisher ERUMATTY A micrscopic examina tion will be performed if indicated. Normal [facility] Comment on above: Performed By: #### C BC #### [facility] [address] [place] [address] Dr. Keturah Fisher Glucose Ql (U) Negative Normal NEGATIVE [facility] Comment on above: Performed By: #### C BC #### [facility] [address] [place] [address] Dr. Keturah Fisher Hemoglobin Ql (U) Negative Normal NEGATIVE The [facility] Comment on above: Performed By: #### C BC #### [facility] [address] [place] [address] Dr. Keturah Fisher Ketones Ql (U) Negative Normal NEGATIVE [facility] Comment on above: Performed By: #### C BC #### [facility] [address] [place] [address] Dr. Keturah Fisher LEUKOCYTES Negative Normal NEGATIVE [facility] Comment on above: Performed By: #### C BC #### [facility] [address] [place] [address] Dr. Keturah Fisher Nitrite Ql (U) Negative Normal NEGATIVE [facility] Comment on above: Performed By: #### C BC #### [facility] [address] [place] [address] Dr. Keturah Fisher pH (U) 5.5 [pH] Normal 5-9 [facility] Comment on above: Performed By: #### C BC #### [facility] [address] [place] [address] Dr. Keturah Fisher SPEC GRAVITY 1.010 Normal 1.005-<=1. 025 [facility] Comment on above: Performed By: #### C BC #### [facility] [address] [place] [address] Dr. Keturah Fisher UA PROTEIN Negative Normal NEGATIVE/ TRACE [facility] Comment on above: Performed By: #### C BC #### [facility] [address] [place] [address] Dr. Keturah Fisher UR MICRO IND NOT INDICATED Normal [facility] Comment on above: Performed By: #### C BC #### [facility] [address] [place] [address] Dr. Keturah Fisher Urobilinogen Qn (U) 0.2 {Marizol'U}/dL Normal 0.2 - 1. 0 [facility] Comment on above: Performed By: #### C BC #### [facility] [address] [place] [address] Dr. Keturah Fisher LIPASEon 08-13-2021 Lipase [Catalytic activity/Vol] 217.0 U/L Normal 73.0-393.0 [facility] Comment on above: Performed By: #### C BC #### [facility] [address] [place] [address] Dr. Keturah Fisher PROF 14(COMP METB)on 022 Albumin [Mass/Vol] 3.9 g/dL Normal 3.4-5.0 [facility] Comment on above: Performed By: #### C BC #### [facility] [address] [place] [address] Dr. Keturah Fisher Albumin/Globulin [Mass ratio] 1.1 {ratio} Normal [facility] Comment on above: Performed By: #### C BC #### [facility] [address] [address] [address] Keturah Fisher ALP [Catalytic activity/Vol] 140 U/L Critically high 46-116 [facility] Comment on above: Performed By: #### C BC #### [facility] [address] [address] [address] Keturah Fisher ALT [Catalytic activity/Vol] 24 U/L Normal 14-59 [facility] Comment on above: Performed By: #### C BC #### [facility] [address] [address] [address] Keturah Fisher Anion gap [Moles/Vol] 11.7 mmol/L Normal [facility] Comment on above: Performed By: #### C BC #### [facility] [address] [place] [address] Dr. Keturah Fisher AST [Catalytic activity/Vol] 19 U/L Normal 15-37 [facility] Comment on above: Performed By: #### C BC #### [facility] [address] [place] [address] Dr. Keturah Fisher Bilirubin [Mass/Vol] 0.2 mg/dL Normal 0.2-1.0 [facility] Comment on above: Performed By: #### C BC #### [facility] [address] [place] [address] Dr. Keturah Fisher Calcium [Mass/Vol] 9.9 mg/dL Normal 8.5-10.1 [facility] Comment on above: Performed By: #### C BC #### [facility] [address] [place] [address] Dr. Keturah Fisher Chloride [Moles/Vol] 105 mmol/L Normal 98-107 [facility] Comment on above: Performed By: #### C BC #### [facility] [address] [place] [address] Dr. Keturah Fisher CO2 [Moles/Vol] 29.1 mmol/L Normal 21.0-32.0 [facility] Comment on above: Performed By: #### C BC #### [facility] [address] [address] [address] Keturah Fisher Creatinine [Mass/Vol] 0.81 mg/dL Normal 0.55-1.02 [facility] Comment on above: Performed By: #### C BC #### [facility] [address] [address] [address] Keturah Fisher EGFR-AF NAMIBIAN >60 Normal >=60 [facility] Comment on above: Performed By: #### C BC #### [facility] [address] [address] [address] Keturah Fisher EGFR-NON AF NAMIBIAN >60 Normal >=60 [facility] Comment on above: Performed By: #### C BC #### [facility] [address] [place] [address] Dr. Keturah Fisher Globulin (S) [Mass/Vol] 3.4 g/dL Normal [facility] Comment on above: Performed By: #### C BC #### [facility] [address] [place] [address] Dr. Keturah Fisher Glucose [Mass/Vol] 87 mg/dL Normal 74-106 [facility] Comment on above: Performed By: #### C BC #### [facility] [address] [place] [address] Dr. Keturah Fisher Potassium [Moles/Vol] 3.8 mmol/L Normal 3.5-5.1 [facility] Comment on above: Performed By: #### C BC #### [facility] [address] [place] [address] Dr. Keturah Fisher Protein [Mass/Vol] 7.3 g/dL Normal 6.4-8.2 [facility] Comment on above: Performed By: #### C BC #### [facility] [address] [place] [address] Dr. Keturah Fisher Sodium [Moles/Vol] 142 mmol/L Normal 136-145 [facility] Comment on above: Performed By: #### C BC #### [facility] [address] [place] [address] Dr. Keturah Fisher Urea nitrogen [Mass/Vol] 11.0 mg/dL Normal 7.0-18.0 [facility] Comment on above: Performed By: #### C BC #### [facility] [address] [place], [place] [address] Dr. Keturah Fisher Urea nitrogen/Creatinine [Mass ratio] 13.6 mg/mg Normal [facility] Comment on above: Performed By: #### C BC #### [facility] [address] [place], [place] [address] Dr. Keturah Fisher Albumin [Mass/volume] in Ser um or PlasmaOrdered By: Keaton Barnard on 08-11-2021 Albumin [Mass/Vol] 3.4 g/dL 3.2-5.5 [facility] Basophils Auto (Bld) [#/Vol] Ordered By: Keaton Barnard on 08-11-2021 Basophils (Bld) [#/Vol] 0.1 10*3/uL 0.0-0.2 [facility] Basophils/100 WBC Auto (Bld) Ordered By: Keaton Barnard on 08-11-2021 Basophils/100 WBC (Bld) 0.9 % . [facility] Bilirubin Test strip Ql (U)O rdered By: Keaton Barnard on 08-11-2021 Bilirubin Ql (U) Negative Negative [facility] Blood hemoglobin measurement (mass/volume)Ordered By: Keaton Barnard on 08-11-2021 Hemoglobin (Bld) [Mass/Vol] 14.1 g/dL 11.8-15.4 [facility] Blood leukocytes automated c ount (number/volume)Ordered By: Keaton Barnard on 08-11-2021 WBC (Bld) [#/Vol] 9.7 10*3/uL 4.5-11.0 [facility] Color Auto (U)Ordered By: Luis Barnard on 08-11-2021 Color (U) Yellow Yellow [facility] Creatinine and Glomerular fi ltration rate.predicted panel (S/P/Bld)Ordered By: Keaton Barnard on 08-11-2021 Creatinine [Mass/Vol] 0.95 mg/dL 0.44-1.03 [facility] Direct bilirubin measurement Ordered By: Keaton Barnard on 08-11-2021 Bilirubin.direct [Mass/Vol] mg/dL 0.0-0.4 [facility] Eosinophils Auto (Bld) [#/Vo l]Ordered By: Keaton Barnard on 08-11-2021 Eosinophils (Bld) [#/Vol] 0.1 10*3/uL 0.0-0.45 [facility] Eosinophils/100 WBC Auto (Bl d)Ordered By: Keaton Barnard on 08-11-2021 Eosinophils/100 WBC (Bld) 1.3 % . [facility] Erythrocyte distribution wid th Auto (RBC) [Ratio]Ordered By: Keaton Barnard on 08-11-2021 Erythrocyte distribution width (RBC) [Ratio] 13.2 % 11.9-15.3 [facility] Estimated glomerular filtrat ion rate (GFR) non- AmericanOrdered By: Keaton Barnard on 08-11-2021 GFR/1.73 sq M.predicted among non-blacks MDRD (S/P/Bld) [Vol rate/Area] > 60 mL/Min [facility] Globulin Calc (S) [Mass/Vol] Ordered By: Keaton Barnard on 08-11-2021 Globulin (S) [Mass/Vol] 2.6 g/dL [facility] Hematocrit Auto (Bld) [Volum e fraction]Ordered By: Keaton Barnard on 08-11-2021 Hematocrit (Bld) [Volume fraction] 42.1 % 34.0-46.4 [facility] Ketones Auto test strip (U) [Mass/Vol]Ordered By: Keaton Barnard on 08-11-2021 Ketones (U) [Mass/Vol] Negative Negative [facility] Laboratory - Chemistry and C hemistry - challengeOrdered By: Keaton Barnard on 08-11-2021 Lipase [Catalytic activity/Vol] 89.0 U/L 22-51 [facility] Laboratory - CoagulationOrde red By: Keaton Barnard on 08-11-2021 PT Coag (PPP) [Time] 12.5 s 9.0-12.9 [facility] Laboratory - Hematology and Cell countsOrdered By: Keaton Barnard on 08-11-2021 Nucleated RBC/100 WBC (Bld) [Ratio] 0.1 % 0-0.5 [facility] Lymphocytes Auto (Bld) [#/Vo l]Ordered By: Keaton Barnard on 08-11-2021 Lymphocytes (Bld) [#/Vol] 2.5 10*3/uL 1.00-4.8 [facility] Lymphocytes/100 WBC Auto (Bl d)Ordered By: Keaton Barnard on 08-11-2021 Lymphocytes/100 WBC (Bld) 25.8 % . [facility] MCH Auto (RBC) [Entitic mass ]Ordered By: Keaton Barnard on 08-11-2021 MCH (RBC) [Entitic mass] 32.4 pg 24.7-34.3 [facility] MCHC Auto (RBC) [Mass/Vol]Or dered By: Keaton Barnard on 08-11-2021 MCHC (RBC) [Mass/Vol] 33.4 g/dL 32.0-35.0 [facility] MCV Auto (RBC) [Entitic vol] Ordered By: Keaton Barnard on 08-11-2021 MCV (RBC) [Entitic vol] 96.8 fL 80-100 [facility] Monocytes Auto (Bld) [#/Vol] Ordered By: Keaton Barnard on 08-11-2021 Monocytes (Bld) [#/Vol] 0.8 10*3/uL 0.0-0.8 [facility] Monocytes/100 WBC Auto (Bld) Ordered By: Keaton Barnard on 08-11-2021 Monocytes/100 WBC (Bld) 8.7 % . [facility] Neutrophils Auto (Bld) [#/Vo l]Ordered By: Keaton Barnard on 08-11-2021 Neutrophils (Bld) [#/Vol] 6.1 10*3/uL 1.8-7.7 [facility] Neutrophils/100 WBC Auto (Bl d)Ordered By: Keaton Barnard on 08-11-2021 Neutrophils/100 WBC (Bld) 63.3 % . [facility] Nitrite Test strip Ql (U)Ord ered By: Keaton Barnard on 08-11-2021 Nitrite Ql (U) Negative Negative [facility] No Panel InformationOrdered By: Keaton Barnard on 08-11-2021 Estimated GFR () > 60 mL/Min [facility] Comment on above: GFR estimated refere nce range: According to KDOQI guidelines, <60 ml/min/1.73m2 is sufficient to diagnose a patient with chronic kidney disease. Pharmacy Creatinine Clearance (Chem 62.33 [facility] Platelet mean volume Auto (B ld) [Entitic vol]Ordered By: Keaton Barnard on 08-11-2021 Platelet mean volume (Bld) [Entitic vol] 8.0 fL 6.3-10.7 [facility] Platelet poor plasma interna tional normalized ratio (INR) by coagulation assay (relatOrdered By: Keaton Barnard on 08-11-2021 INR Coag (PPP) [Relative time] 1.1 {INR} [facility] Comment on above: INR Therapeutic Rang [...] 08-11-2021 Platelets (Bld) [#/Vol] 252 10*3/uL 150-450 [facility] Protein Auto test strip (U) [Mass/Vol]Ordered By: Keaton Barnard on 08-11-2021 Protein (U) [Mass/Vol] Negative Negative [facility] Protein [Mass/volume] in Ser um or PlasmaOrdered By: Keaton Barnard on 08-11-2021 Protein [Mass/Vol] 6.0 g/dL 6.1-7.9 [facility] RBC Auto (Bld) [#/Vol]Ordere d By: Keaton Barnard on 08-11-2021 RBC (Bld) [#/Vol] 4.35 10*6/uL 3.60-5.00 [facility] Serum or plasma alanine hughes otransferase measurement without P-5'-P (enzymatic activiOrdered By: Keaton Barnard on 08-11-2021 ALT No additional P-5'-P [Catalytic activity/Vol] 12 U/L 10-60 [facility] Serum or plasma albumin/glob ulin mass ratioOrdered By: Keaton Barnard on 08-11-2021 Albumin/Globulin [Mass ratio] 1.3 {ratio} [facility] Serum or plasma alkaline jaqueline sphatase measurement (enzymatic activity/volume)Ordered By: Keaton Barnard on 08-11-2021 ALP [Catalytic activity/Vol] 98 U/L 32-92 [facility] Serum or plasma aspartate am inotransferase measurement (enzymatic activity/volume)Ordered By: Keaton Barnard on 08-11-2021 AST [Catalytic activity/Vol] 17 U/L 10-42 [facility] Serum or plasma calcium priscilla urement (mass/volume)Ordered By: Keaton Barnard on 08-11-2021 Calcium [Mass/Vol] 9.3 mg/dL 8.2-10.2 [facility] Serum or plasma chloride daron surement (moles/volume)Ordered By: Keaton Barnard on 08-11-2021 Chloride [Moles/Vol] 104 mmol/L 95-114 [facility] Serum or plasma glucose priscilla urement (mass/volume)Ordered By: Keaton Barnard on 08-11-2021 Glucose [Mass/Vol] 95 mg/dL 70-100 [facility] Comment on above: ADA recommended refe rence range Random Glucose Reference Range is dependent on time and content of last meal. Glucose of more than 200 mg/dL in a nonstressed, ambulatory subject supports the diagnosis of Diabetes Mellitus. Serum or plasma non-glucuron idated bilirubin measurement (mass/volume)Ordered By: Keaton Barnard on 08-11-2021 Bilirubin.indirect [Mass/Vol] TNP [facility] Comment on above: Test not performed Serum or plasma potassium me asurement (moles/volume)Ordered By: Keaton Barnard on 08-11-2021 Potassium [Moles/Vol] 3.8 mmol/L 3.5-5.1 [facility] Serum or plasma sodium measu rement (moles/volume)Ordered By: Keaton Barnard on 08-11-2021 Sodium [Moles/Vol] 138 mmol/L 136-146 [facility] Serum or plasma total biliru bin measurement (mass/volume)Ordered By: Keaton Barnard on 08-11-2021 Bilirubin [Mass/Vol] 0.3 mg/dL 0.3-1.2 [facility] Serum or plasma total carbon dioxide measurement (moles/volume)Ordered By: Keaton Barnard on 08-11-2021 CO2 [Moles/Vol] 24.8 mmol/L 22.0-30.0 [facility] Serum or plasma urea nitroge n measurement (mass/volume)Ordered By: Keaton Barnard on 08-11-2021 Urea nitrogen [Mass/Vol] 10 mg/dL 9- [facility] Specific gravity Auto test s trip (U) [Rel density]Ordered By: Keaton Barnard on 08-11-2021 Specific gravity (U) [Rel density] 1.028 1.001-1.03 0 [facility] Troponin I.cardiac [Mass/vol ume] in Serum or Plasma by High sensitivity methodOrdered By: Keaton Barnard on 08-11-2021 Troponin I.cardiac High sensitivity method [Mass/Vol] 3 pg/mL 0-15 [facility] Urine clarity by refractomet ry automatedOrdered By: Keaton Barnard on 08-11-2021 Clarity Refractometry automated (U) Clear Clear [facility] Urine glucose measurement by automated test strip (mass/volume)Ordered By: Keaton Barnard on 08-11-2021 Glucose Auto test strip (U) [Mass/Vol] Normal mg/dL Normal [facility] Urine hemoglobin detection b y automated test stripOrdered By: Keaton Barnard on 08-11-2021 Hemoglobin Auto test strip Ql (U) Negative Negative [facility] Urine leukocyte esterase det ection by automated test stripOrdered By: Keaton Barnard on 08-11-2021 Leukocyte esterase Auto test strip Ql (U) Negative Negative [facility] Urobilinogen Auto test strip (U) [Mass/Vol]Ordered By: Keaton Barnard on 08-11-2021 Urobilinogen (U) [Mass/Vol] Normal mg/dL Normal [facility] pH Auto test strip (U)Ordere d By: Keaton Barnard on 08-11-2021 pH (U) 5.0 [pH] 5.0-9.0 [facility] AMYLASEon 07-31-2021 Amylase [Catalytic activity/Vol] 158 U/L Critically high 25-115 [facility] Comment on above: Performed By: #### L IPA, CMP, CRP, NAT #### [facility] [address] [place], [place] [address] Dr. Keturah Fisher CBC AUTO DIFFon 07-31-2021 BASO # 0.1 103/ul Normal 0.0-0.1 [facility] Comment on above: Performed By: #### C BC ####[facility] [address] [address]DrGopal Fisher Basophils/100 WBC (Bld) 0.7 % Normal 0.2-2.0 [facility] Comment on above: Performed By: #### C BC ####[facility] [address] [place] [address]DrGopal Fisher EO # 0.1 103/ul Normal 0.0-0.7 [facility] Comment on above: Performed By: #### C BC ####[facility] [address] [place] [address]DrGopal Fisher Eosinophils/100 WBC (Bld) 0.9 % Normal 0.9-7.0 [facility] Comment on above: Performed By: #### C BC ####[facility] [address] [place] [id number] Fisher Erythrocyte distribution width (RBC) [Ratio] 12.7 % Normal 11.0-15.0 [facility] Comment on above: Performed By: #### C BC ####[facility] [address] [place] [id number] Fisher Hematocrit (Bld) [Volume fraction] 43.2 % Normal 36.0-48.0 [facility] Comment on above: Performed By: #### C BC ####[facility] [address] [place] [id number] Fisher Hemoglobin (Bld) [Mass/Vol] 14.5 g/dL Normal 12.0-16.0 [facility] Comment on above: Performed By: #### C BC ####[facility] [address] [place] [id number]. Keturah Fisher IG # 0.04 10e3/ul Critically high 0.00-0.03 [facility] Comment on above: Performed By: #### C BC ####[facility] [address] [place] [id number]. Keturah Fisher IG % 0.4 % Normal 0.0-0.5 [facility] Comment on above: Performed By: #### C BC ####[facility] [address] [place] [address]Dr. Keturah Fisher LYMPH # 2.8 103/ul Normal 1.2-3.8 [facility] Comment on above: Performed By: #### C BC ####[facility] [address] [place] [address]Dr. Keturah Fisher Lymphocytes/100 WBC (Bld) 24.9 % Normal 20.5-60.0 [facility] Comment on above: Performed By: #### C BC ####[facility] [address]liyxnl[address] [place] [address]Dr. Elisaeli Fisher MANUAL DIFF REQ NO Normal [facility] Comment on above: Performed By: #### C BC ####[facility] [address] [place] [address]Dr. Keturah Fisher MCH (RBC) [Entitic mass] 32.7 pg Normal 26.7-34.0 [facility] Comment on above: Performed By: #### C BC ####[facility] [address]ctapw[address] [place] [address]Dr. Keturah Fisher MCHC (RBC) [Mass/Vol] 33.6 g/dL Normal 29.9-35.2 [facility] Comment on above: Performed By: #### C BC ####[facility] [address]luuqsbk[address] [place] [address]Dr. Keturah Fisher MCV (RBC) [Entitic vol] 97.5 fL Normal 81.0-99.0 [facility] Comment on above: Performed By: #### C BC ####[facility] [address]xerg[address] [place] [id number]. Keturah Fisher MONO # 0.9 103/ul Critically high 0.3-0.8 [facility] Comment on above: Performed By: #### C BC ####[facility] Jxjzfnxtdl[address] [place] [id number]. Keturah Fisher Monocytes/100 WBC (Bld) 8.1 % Normal 1.7-12.0 [facility] Comment on above: Performed By: #### C BC ####[facility] T[address]ib[address] [id number]. Keturah Fisher NEUT # 7.3 103/ul Critically high 1.4-6.5 [facility] Comment on above: Performed By: #### C BC ####[facility] [address]ax[address] [place] [address]Dr. Keturah Fisher Neutrophils/100 WBC (Bld) 65.0 % Normal 43.0-75.0 [facility] Comment on above: Performed By: #### C BC ####[facility] [address]qsrsnm[address] [place] [id number]. Keturah Fisher Platelet mean volume (Bld) [Entitic vol] 10.0 fL Normal 9.5-13.5 [facility] Comment on above: Performed By: #### C BC ####[facility] Z[address]ulma[address] [id number]. Keturah Fisher PLT 245 103/ul Normal 150-450 [facility] Comment on above: Performed By: #### C BC ####[facility] H[address]sulph[address] [place] [id number]. Keturah Fisher RBC 4.43 106/ul Normal 4.20-5.40 [facility] Comment on above: Performed By: #### C BC ####[facility] E[address]lpqht[address] [place] [id number]. Keturah Fisher WBC 11.2 103/ul Critically high 4.0-11.0 [facility] Comment on above: Performed By: #### C BC ####[facility] [address] [place] [address]Dr. Keturah Fisher LIPASEon 07-31-2021 Lipase [Catalytic activity/Vol] 439.0 U/L Critically high 73.0-393.0 [facility] Comment on above: Performed By: #### L IPA, CMP, CRP, NAT #### [facility] [address] [place] [address] Dr. Keturah Fisher PROF 14(COMP METB)on 022 Albumin [Mass/Vol] 3.6 g/dL Normal 3.4-5.0 [facility] Comment on above: Performed By: #### L IPA, CMP, CRP, NAT #### [facility] [address] [place] [address] Dr. Keturah Fisher Albumin/Globulin [Mass ratio] 1.1 {ratio} Normal [facility] Comment on above: Performed By: #### L IPA, CMP, CRP, NAT #### [facility] [address] [place] [address] Dr. Keturah Fisher ALP [Catalytic activity/Vol] 119 U/L Critically high 46-116 [facility] Comment on above: Performed By: #### L IPA, CMP, CRP, NAT #### [facility] [address] [place] [address] Dr. Keturah Fisher ALT [Catalytic activity/Vol] 20 U/L Normal 14-59 [facility] Comment on above: Performed By: #### L IPA, CMP, CRP, NAT #### [facility] [address] [place] [address] Dr. Keturah Fisher Anion gap [Moles/Vol] 13.4 mmol/L Normal [facility] Comment on above: Performed By: #### L IPA, CMP, CRP, NAT #### [facility] [address] [place] [address] Dr. Keturah Fisher AST [Catalytic activity/Vol] 16 U/L Normal 15-37 [facility] Comment on above: Performed By: #### L IPA, CMP, CRP, NAT #### [facility] [address] [place] [address] Dr. Keturah Fisher Bilirubin [Mass/Vol] 0.1 mg/dL Critically low 0.2-1.0 [facility] Comment on above: Performed By: #### L IPA, CMP, CRP, NAT #### [facility] [address] [address] [address] Keturah Fisher Calcium [Mass/Vol] 8.9 mg/dL Normal 8.5-10.1 [facility] Comment on above: Performed By: #### L IPA, CMP, CRP, NAT #### [facility] [address] [place] [address] Dr. Keturah Fisher Chloride [Moles/Vol] 106 mmol/L Normal 98-107 [facility] Comment on above: Performed By: #### L IPA, CMP, CRP, NAT #### [facility] [address] [place] [address] Dr. Keturah iFsher CO2 [Moles/Vol] 25.4 mmol/L Normal 21.0-32.0 [facility] Comment on above: Performed By: #### L IPA, CMP, CRP, NAT #### [facility] [address] [place] [address] Dr. Keturah Fisher Creatinine [Mass/Vol] 0.73 mg/dL Normal 0.55-1.02 [facility] Comment on above: Performed By: #### L IPA, CMP, CRP, NAT #### [facility] [address] [place] [address] Dr. Keturah Fisher EGFR-AF NAMIBIAN >60 Normal >=60 [facility] Comment on above: Performed By: #### L IPA, CMP, CRP, NAT #### [facility] [address] [place] [address] Dr. Keturah Fisher EGFR-NON AF NAMIBIAN >60 Normal >=60 [facility] Comment on above: Performed By: #### L IPA, CMP, CRP, NAT #### [facility] [address] [place] [address] Dr. Keturah Fisher Globulin (S) [Mass/Vol] 3.2 g/dL Normal [facility] Comment on above: Performed By: #### L IPA, CMP, CRP, NAT #### [facility] [address] [address] [address] Keturah Fisher Glucose [Mass/Vol] 105 mg/dL Normal 74-106 [facility] Comment on above: Performed By: #### L IPA, CMP, CRP, NAT #### [facility] [address] [address] [address] Keturah Fisher Potassium [Moles/Vol] 3.8 mmol/L Normal 3.5-5.1 [facility] Comment on above: Performed By: #### L IPA, CMP, CRP, NAT #### [facility] [address] [address] [address] Keturah Fisher Protein [Mass/Vol] 6.8 g/dL Normal 6.4-8.2 [facility] Comment on above: Performed By: #### L IPA, CMP, CRP, NAT #### [facility] [address] [address] [address] Keturah Fisher Sodium [Moles/Vol] 141 mmol/L Normal 136-145 [facility] Comment on above: Performed By: #### L IPA, CMP, CRP, NAT #### [facility] [address] [address] [address] Keturah Fisher Urea nitrogen [Mass/Vol] 12.0 mg/dL Normal 7.0-18.0 [facility] Comment on above: Performed By: #### L IPA, CMP, CRP, NAT #### [facility] [address] [place] [address] Dr. Keturah Fisher Urea nitrogen/Creatinine [Mass ratio] 16.4 mg/mg Normal [facility] Comment on above: Performed By: #### L IPA, CMP, CRP, NAT #### [facility] [address] [place] [address] Dr. Keturah Fisher TROPONIN, HIGH SENSITIVITYon 07-31-2021 HSTROP 4.2 pg/mL Normal 4.0-51.3 [facility] Comment on above: Result Comment: CUT- OFF POINTS HAVE BEEN ESTABLISHED BASED ON THE FOURTH UNIVERSAL DEFINITIONS OF MYOCARDIAL INFARCTION. THE UPPER REFERENCE LIMIT (URL) OF TROPONIN, DEFINED THE 99TH PERCENTILE OF cTnI DISTRIBUTION IN A REFERENCE POPULATION, HAS BEEN CONFIRMED THE DECISION THRESHOLD FOR [place] DIAGNOSIS. Performed By: #### L IPA, CMP, CRP, NAT #### [facility] [address] [address] [address] Keturah Fisher AMYLASEon 07-19-2021 Amylase [Catalytic activity/Vol] 198 U/L Critically high 25-115 [facility] Comment on above: Performed By: #### A MY, LIPA, CMP ####[facility] [address] [place] [address]DrGopal Fisher CBC AUTO DIFFon 07-19-2021 BASO # 0.1 103/ul Normal 0.0-0.1 [facility] Comment on above: Performed By: #### C BC ####[facility] [address]scqtsvac[address] [place] [address]DrGopal Fisher Basophils/100 WBC (Bld) 0.7 % Normal 0.2-2.0 [facility] Comment on above: Performed By: #### C BC ####[facility] [address]knklv[address] [place] [address]DrGopal Fisher EO # 0.1 103/ul Normal 0.0-0.7 [facility] Comment on above: Performed By: #### C BC ####[facility] [address]za[address]ekbg[address] [place] [address]DrGopal Fisher Eosinophils/100 WBC (Bld) 1.0 % Normal 0.9-7.0 [facility] Comment on above: Performed By: #### C BC ####[facility] [address]iytvjr[address] [place] [address]DrGopal Fisher Erythrocyte distribution width (RBC) [Ratio] 12.5 % Normal 11.0-15.0 [facility] Comment on above: Performed By: #### C BC ####[facility] [address]hilcykm[address] [place] [address]DrGopal Fisher Hematocrit (Bld) [Volume fraction] 42.4 % Normal 36.0-48.0 [facility] Comment on above: Performed By: #### C BC ####[facility] Ekitrzwics[address] [place] [id number]. Keturah Fisher Hemoglobin (Bld) [Mass/Vol] 14.2 g/dL Normal 12.0-16.0 [facility] Comment on above: Performed By: #### C BC ####[facility] Lrhwhyytou[address] [place] [id number]. Keturah Fisher IG # 0.03 10e3/ul Normal 0.00-0.03 [facility] Comment on above: Performed By: #### C BC ####[facility] Gxsucmnomy[address] [place] [address]Dr. Keturah Fisher IG % 0.3 % Normal 0.0-0.5 [facility] Comment on above: Performed By: #### C BC ####[facility] [address] [place], [place] [address]Dr. Keturah Fisher LYMPH # 3.0 103/ul Normal 1.2-3.8 [facility] Comment on above: Performed By: #### C BC ####[facility] Wejpgnykax[address] [place], [place] [address]Dr. Keturah Fisher Lymphocytes/100 WBC (Bld) 29.5 % Normal 20.5-60.0 [facility] Comment on above: Performed By: #### C BC ####[facility] Afwlkooaci[address] [place], [place] [address]Dr. Keturah Fisher MANUAL DIFF REQ NO Normal [facility] Comment on above: Performed By: #### C BC ####[facility] Tdcnlklnyw[address] [place], [place] [address]Dr. Keturah Fisher MCH (RBC) [Entitic mass] 32.8 pg Normal 26.7-34.0 [facility] Comment on above: Performed By: #### C BC ####[facility] Aeeevncqbc[address] [place], [place] [address]Dr. Keturah Fisher MCHC (RBC) [Mass/Vol] 33.5 g/dL Normal 29.9-35.2 [facility] Comment on above: Performed By: #### C BC ####[facility] Q[address]zfgbd[address] [place] [id number]. Keturah Fisher MCV (RBC) [Entitic vol] 97.9 fL Normal 81.0-99.0 [facility] Comment on above: Performed By: #### C BC ####[facility] Rselhhhfdu[address] [place] [id number]. Keturah Fisher MONO # 1.0 103/ul Critically high 0.3-0.8 [facility] Comment on above: Performed By: #### C BC ####[facility] Kkfnihtjqe25[address] [place] [phone]. Keturah Fisher Monocytes/100 WBC (Bld) 9.3 % Normal 1.7-12.0 [facility] Comment on above: Performed By: #### C BC ####[facility] Fnhgnfvbti[address] [place], [place] [address]Dr. Keturah Fisher NEUT # 6.1 103/ul Normal 1.4-6.5 [facility] Comment on above: Performed By: #### C BC ####[facility] U[address]qrbfs[address] [place], [place] [id number]. Keturah Fisher Neutrophils/100 WBC (Bld) 59.2 % Normal 43.0-75.0 [facility] Comment on above: Performed By: #### C BC ####[facility] Jybehpgpgy[address] [place] [id number]. Keturah Fisher Platelet mean volume (Bld) [Entitic vol] 9.8 fL Normal 9.5-13.5 [facility] Comment on above: Performed By: #### C BC ####[facility] Sxcewubhwy[address] [place] [id number]. Keturah Phillip PLT 249 103/ul Normal 150-450 [facility] Comment on above: Performed By: #### C BC ####[facility] Asrdruiesp[address] [place], [place] [address]Dr. Keturah Phillip RBC 4.33 106/ul Normal 4.20-5.40 [facility] Comment on above: Performed By: #### C BC ####[facility] Tpthfbylji[address] [place] [address]Dr. Keturah Fisher WBC 10.2 103/ul Normal 4.0-11.0 [facility] Comment on above: Performed By: #### C BC ####[facility] Jsdeiifvdv[address] [place], [place] [address]Dr. Keturah Fisher LIPASEon 07-19-2021 Lipase [Catalytic activity/Vol] 554.0 U/L Critically high 73.0-393.0 [facility] Comment on above: Performed By: #### A MY, LIPA, CMP ####[facility] Uctfmexeuv[address] [place], [place] [address]Dr. Keturah Fisher PROF 14(COMP METB)on 022 Albumin [Mass/Vol] 4.0 g/dL Normal 3.4-5.0 [facility] Comment on above: Performed By: #### A MY, LIPA, CMP ####[facility] Wzyfexmofe[address] [place], [place] [address]Dr. Keturah Fisher Albumin/Globulin [Mass ratio] 1.1 {ratio} Normal [facility] Comment on above: Performed By: #### A MY, LIPA, CMP ####[facility] Vcugbubrwr[address] [place], [place] [address]Dr. Keturah Fisher ALP [Catalytic activity/Vol] 141 U/L Critically high 46-116 [facility] Comment on above: Performed By: #### A MY, LIPA, CMP ####[facility] Xwdhippjkz[address] [place], [place] [address]Dr. Keturah Fisher ALT [Catalytic activity/Vol] 21 U/L Normal 14-59 [facility] Comment on above: Performed By: #### A MY, LIPA, CMP ####[facility] Lqqxukmadg[address] [place], [place] [address]Dr. Keturah Fisher Anion gap [Moles/Vol] 10.3 mmol/L Normal [facility] Comment on above: Performed By: #### A MY, LIPA, CMP ####[facility] Ofvzsojvhj[address] [place], [place] [address]Dr. Keturah Fisher AST [Catalytic activity/Vol] 22 U/L Normal 15-37 [facility] Comment on above: Performed By: #### A AMANDEEP LIPA, CMP ####[facility] Kxk[address]waos[address] [place] [address]Dr. Keturah Fisher Bilirubin [Mass/Vol] 0.3 mg/dL Normal 0.2-1.0 [facility] Comment on above: Performed By: #### A AMANDEEP LIPA, CMP ####[facility] Fgzvaqntln[address] [place], [place] [address]Dr. Keturah Fisher Calcium [Mass/Vol] 9.9 mg/dL Normal 8.5-10.1 [facility] Comment on above: Performed By: #### A AMANDEEP LIPA, CMP ####[facility] Fasaefzxhi[address] [place], [place] [address]Dr. Keturah Fisher Chloride [Moles/Vol] 103 mmol/L Normal 98-107 [facility] Comment on above: Performed By: #### A AMANDEEP LIPA, CMP ####[facility] [address]suumjbj[address] [place], [place] [address]Dr. Keturah Fisher CO2 [Moles/Vol] 27.6 mmol/L Normal 21.0-32.0 [facility] Comment on above: Performed By: #### A AMANDEEP LIPA, CMP ####[facility] [address]oz[address]uhj[address] [place], [place] [address]Dr. Keturah Fisher Creatinine [Mass/Vol] 0.93 mg/dL Normal 0.55-1.02 [facility] Comment on above: Performed By: #### A MY LIPA, CMP ####[facility] [address]cxb[address]jgl[address] [place], [place] [address]Dr. Elisalan Fisher EGFR-AF NAMIBIAN >60 Normal >=60 [facility] Comment on above: Performed By: #### A MY LIPA, CMP ####[facility] Ovficyampt[address] [place], [place] [address]Dr. Keturah Fisher EGFR-NON AF NAMIBIAN >60 Normal >=60 [facility] Comment on above: Performed By: #### A MY LIPA, CMP ####[facility] [address]adr[address]vg[address] [place] [address]Dr. Keturah Fisher Globulin (S) [Mass/Vol] 3.5 g/dL Normal [facility] Comment on above: Performed By: #### A ROB BERNSTEIN, CMP ####[facility] [address]qlo[address] [place] [address]Dr. Keturah Fisher Glucose [Mass/Vol] 99 mg/dL Normal 74-106 [facility] Comment on above: Performed By: #### A AMANDEEP LIPA, CMP ####[facility] [address]xnjbx[address] [address]Dr. Keturah Fisher Potassium [Moles/Vol] 3.9 mmol/L Normal 3.5-5.1 [facility] Comment on above: Performed By: #### A AMANDEEP LIPA, CMP ####[facility] Zuf[address]ftqrhj[address] [place], [place] [address]Dr. Keturah Fisher Protein [Mass/Vol] 7.5 g/dL Normal 6.4-8.2 [facility] Comment on above: Performed By: #### A AMANDEEP LIPA, CMP ####[facility] [address]ct[address]myh[address] [place], [place] [address]Dr. Keturah Fisher Sodium [Moles/Vol] 137 mmol/L Normal 136-145 [facility] Comment on above: Performed By: #### A AMANDEEP LIPA, CMP ####[facility] [address] [address]Dr. Keturah Fisher Urea nitrogen [Mass/Vol] 9.0 mg/dL Normal 7.0-18.0 [facility] Comment on above: Performed By: #### A AMANDEEP LIPA, CMP ####[facility] [address]ulns[address] [address]Dr. Keturah Fisher Urea nitrogen/Creatinine [Mass ratio] 9.7 mg/mg Normal [facility] Comment on above: Performed By: #### A AMANDEEP LIPA, CMP ####[facility] [address] [address]Dr. Keturah Phillip XR ABD FLAT UP_PA Jorje 07-19 XR [...] Rehabilitation COVID Quick Testingon 2021 Result Positive Oculus VR Other ANES Marcial 11-13-2020 ANES POST HNO ID: [id number] Author: Ion Avila MD Service: Anesthesiology Author [...] 13, 2020 TIME: 12:38 PM PAGER/CONTACT #: [phone] [facility] NURSING PROGon 11-13-2020 NURSING PROG HNO ID: [id number] Author: Viky Nguyen RN Service: Nursing Author [...] None Electronically Signed By: Yaquelin Nguyen RN [facility] NURSING PROG HNO ID: [id number] Author: Landy Smith RN Service: Nursing Author [...] By: Landy Smith RN In Department: GASTROENTEROLOGY [facility] ----- CHIOMA RAINEY ([id number]) 1970 F Date Time Provider Department 11/07/20 NASREEN GORMAN GASTADRIANA During your visit today, we recorded the [...] area. Any barriers to Patient learning: Patient/Patient Dramatic Director responded appropriately on phone. Type of [...] by NASREEN GORMAN on 11/07/20 Normal [facility] Amylaseon 03-26-2020 Amylase [Catalytic activity/Vol] 185 U/L High 28 - 100 U/L [place] CBC Auto Differentialon 03-09 Basophils (Bld) [#/Vol] 0.06 10*3/uL [place] Basophils/100 WBC (Bld) 1 % 0 - 2 % [place] Differential Type NOT REPORTED [place] Eosinophils (Bld) [#/Vol] 0.12 10*3/uL [place] Eosinophils/100 WBC (Bld) 1 % 1 - 4 % [place] Erythrocyte distribution width (RBC) [Ratio] 12.4 % 11.8 - 14.4 % [place] Hematocrit (Bld) [Volume fraction] 40.6 % 36.3 - 47.1 % [place] Hemoglobin (Bld) [Mass/Vol] 13.7 g/dL 11.9 - 15.1 g/dL [place] Immature granulocytes (Bld) [#/Vol] 0 % 0 [place] Immature granulocytes (Bld) [#/Vol] 10*3/uL [place] Lymphocytes (Bld) [#/Vol] 2.62 10*3/uL [place] Lymphocytes/100 WBC (Bld) 27 % 24 - 43 % [place] MCH (RBC) [Entitic mass] 33.4 pg 25.2 - 33.5 pg [place] MCHC (RBC) [Mass/Vol] 33.7 g/dL 28.4 - 34.8 g/dL [place] MCV (RBC) [Entitic vol] 99.0 fL 82.6 - 102.9 fL [place] Monocytes (Bld) [#/Vol] 0.78 10*3/uL [place] Monocytes/100 WBC (Bld) 8 % 3 - 12 % [place] Platelet mean volume (Bld) [Entitic vol] 9.4 fL 8.1 - 13.5 fL [place] Platelets (Bld) [#/Vol] 235 10*3/uL [place] Platelets (Bld) [#/Vol] NOT REPORTED [place] RBC (Bld) [#/Vol] 4.10 10*6/uL 3.95 - 5.11 m/uL [place] RBC morphology finding Nom (Bld) NOT REPORTED [place] Segmented neutrophils/100 WBC (Bld) 63 % 36 - 65 % [place] Segs Absolute 5.96 [place] WBC (Bld) [#/Vol] 9.6 10*3/uL [place] WBC (Bld) [#/Vol] 0.0 10*3/uL 0.0 per 100 WBC [place] WBC Morphology NOT REPORTED [place], [place] Comprehensive Metabolic Pane l w/ Reflex to MGon 03-26-2020 Albumin [Mass/Vol] 4.3 g/dL 3.5 - 5.2 g/dL [place] Albumin/Globulin [Mass ratio] 1.7 {ratio} [place] ALP [Catalytic activity/Vol] 117 U/L High 35 - 104 U/L [place] ALT [Catalytic activity/Vol] 11 U/L 5 - 33 U/L [place] Anion gap [Moles/Vol] 9 mmol/L 9 - 17 mmol/L [place] AST [Catalytic activity/Vol] 18 U/L <32 [place] Bilirubin Ql (U) 0.15 mg/dL Low 0.3 - 1.2 mg/dL [place] Bun/Cre Ratio 12 [place] Calcium [Mass/Vol] 9.7 mg/dL 8.6 - 10. 4 mg/dL [place] Chloride [Moles/Vol] 102 mmol/L 98 - 10 7 mmol/L [place] CO2 [Moles/Vol] 25 mmol/L 20 - 31 mmol/L [place] Creatinine [Mass/Vol] 0.74 mg/dL 0.5 - 0.9 mg/dL [place] GFR >60 >60 mL/min [place] GFR Non- >60 >60 mL/min [place] Glucose [Mass/Vol] 94 mg/dL 70 - 99 mg/dL [place] Potassium [Moles/Vol] 4.2 mmol/L 3.7 - 5.3 mmol/L [place] Protein [Mass/Vol] 6.8 g/dL 6.4 - 8.3 g/dL [place] Sodium [Moles/Vol] 136 mmol/L 135 - 144 mmol/L [place] Urea nitrogen [Mass/Vol] 9 mg/dL 6 - 20 mg/dL [place] Lactic Acidon 03-26-2020 Lactate [Moles/Vol] 1.3 mmol/L 0.5 - 2. 2 mmol/L [place] Lipaseon 03-26-2020 Interpretation and review of laboratory results Abnormal [place] Lipase [Catalytic activity/Vol] 225 U/L Critically high 13 - 60 U/L [place] Metabolic Panelon 03-26-2020 GFR/1.73 sq M predicted among non-blacks MDRD (S/P/Bld) [Vol rate/Area] [place] Comment on above: Average GFR for 50-5 9 years old: 93 mL/min/1.73sq m Chronic Kidney Disease: <60 mL/min/1.73sq m Kidney failure: <15 mL/min/1.73sq m eGFR calculated using average adult body mass. Additional eGFR calculator available at: http://www.Kanjoya.NuoDB/multiple_crcl_2012.htm Stage 1: Some kidney damage normal GFR Stage 2: Mild kidney damage GFR 60-89 Stage 3: Moderate kidney damage GFR 30-59 Stage 4: Severe kidney damage GFR 15-29 Stage 5: Severe kidney damage GFR <15 ESRD - chronic treatment by dialysis or transplant Otheron 03-26-2020 Interpretation and review of laboratory results Abnormal [place] SPECIMEN REJECTIONon 021 Ordered Test CDP [place] Reason for Rejection Unable to perform testing: Specimen clotted. [place] Specimen source Nom (Unsp spec) .BLOOD [place] - NOT REPORTED [place] Urinalysis, reflex to micros copicon 03-26-2020 Bilirubin Urine Negative NEGATIVE [place] Color, UA YELLOW YELLOW [place] Glucose, Ur Negative NEGATIVE [place] Ketones Ql (U) Negative NEGATIVE [place] Leukocyte esterase Test strip Ql (U) Negative NEGATIVE [place] Nitrite, Urine Negative NEGATIVE [place] pH, UA 5.5 [place] Protein (U) [Mass/Vol] Negative NEGATIVE [place], [place] Specific [place], UA 1.010 [place], [place] Turbidity UA CLEAR [place] Urinalysis Comments NOT REPORTED [place] Urine Hgb Negative NEGATIVE [place] Urobilinogen, Urine Normal Normal [place] CBC auto differentialon 08-07 Basophils (Bld) [#/Vol] 0.04 10*3/uL [place] Basophils/100 WBC (Bld) 1 % 0 - 2 % [place] Differential Type NOT REPORTED [place] Eosinophils (Bld) [#/Vol] 0.10 10*3/uL [place] Eosinophils/100 WBC (Bld) 1 % 1 - 4 % [place] Erythrocyte distribution width (RBC) [Ratio] 13.0 % 11.8 - 14.4 % [place] Hematocrit (Bld) [Volume fraction] 35.2 % Low 36.3 - 47.1 % [place] Hemoglobin (Bld) [Mass/Vol] 11.7 g/dL Low 11.9 - 15.1 g/dL [place] Immature granulocytes (Bld) [#/Vol] 10*3/uL [place] Immature granulocytes (Bld) [#/Vol] 0 % 0 [place] Interpretation and review of laboratory results Abnormal [place] Lymphocytes (Bld) [#/Vol] 1.87 10*3/uL [place] Lymphocytes/100 WBC (Bld) 22 % Low 24 - 43 % [place] MCH (RBC) [Entitic mass] 32.5 pg 25.2 - 33.5 pg [place] MCHC (RBC) [Mass/Vol] 33.2 g/dL 28.4 - 34.8 g/dL [place] MCV (RBC) [Entitic vol] 97.8 fL 82.6 - 102.9 fL [place] Monocytes (Bld) [#/Vol] 0.86 10*3/uL [place] Monocytes/100 WBC (Bld) 10 % 3 - 12 % [place] Platelet mean volume (Bld) [Entitic vol] 9.8 fL 8.1 - 13.5 fL [place] Platelets (Bld) [#/Vol] NOT REPORTED [place] Platelets (Bld) [#/Vol] 178 10*3/uL [place] RBC (Bld) [#/Vol] 3.60 10*6/uL Low 3.95 - 5.11 m/uL [place] RBC morphology finding Nom (Bld) NOT REPORTED [place] Segmented neutrophils/100 WBC (Bld) 66 % High 36 - 65 % [place] Segs Absolute 5.53 [place], [place] WBC (Bld) [#/Vol] 0.0 10*3/uL 0.0 per 100 WBC [place] WBC (Bld) [#/Vol] 8.4 10*3/uL [place] WBC Morphology NOT REPORTED [place], [place] Lipaseon 08-25-2019 Lipase [Catalytic activity/Vol] 42 U/L 13 - 60 U/L [place] CBC auto differentialon 08-07 Basophils (Bld) [#/Vol] 0.04 10*3/uL [place] Basophils/100 WBC (Bld) 1 % 0 - 2 % [place] Differential Type NOT REPORTED [place] Eosinophils (Bld) [#/Vol] 0.08 10*3/uL [place] Eosinophils/100 WBC (Bld) 1 % 1 - 4 % [place] Erythrocyte distribution width (RBC) [Ratio] 12.9 % 11.8 - 14.4 % [place] Hematocrit (Bld) [Volume fraction] 35.9 % Low 36.3 - 47.1 % [place] Hemoglobin (Bld) [Mass/Vol] 11.9 g/dL 11.9 - 15.1 g/dL [place] Immature granulocytes (Bld) [#/Vol] 0 % 0 [place] Immature granulocytes (Bld) [#/Vol] 0.03 10*3/uL [place] Interpretation and review of laboratory results Abnormal [place] Lymphocytes (Bld) [#/Vol] 1.79 10*3/uL [place] Lymphocytes/100 WBC (Bld) 22 % Low 24 - 43 % [place] MCH (RBC) [Entitic mass] 32.3 pg 25.2 - 33.5 pg [place] MCHC (RBC) [Mass/Vol] 33.1 g/dL 28.4 - 34.8 g/dL [place] MCV (RBC) [Entitic vol] 97.6 fL 82.6 - 102.9 fL [place] Monocytes (Bld) [#/Vol] 0.75 10*3/uL [place] Monocytes/100 WBC (Bld) 9 % 3 - 12 % [place] Platelet mean volume (Bld) [Entitic vol] 10.1 fL 8.1 - 13.5 fL [place] Platelets (Bld) [#/Vol] 176 10*3/uL [place] Platelets (Bld) [#/Vol] NOT REPORTED [place] RBC (Bld) [#/Vol] 3.68 10*6/uL Low 3.95 - 5.11 m/uL [place] RBC morphology finding Nom (Bld) NOT REPORTED [place] Segmented neutrophils/100 WBC (Bld) 67 % High 36 - 65 % [place] Segs Absolute 5.61 [place] WBC (Bld) [#/Vol] 0.0 10*3/uL 0.0 per 100 WBC [place] WBC (Bld) [#/Vol] 8.3 10*3/uL [place] WBC Morphology NOT REPORTED [place], [place] Lipaseon 08-24-2019 Interpretation and review of laboratory results Abnormal [place] Lipase [Catalytic activity/Vol] 69 U/L High 13 - 60 U/L [place] CBC auto differentialon 08-07 Basophils (Bld) [#/Vol] 0.05 10*3/uL [place] Basophils/100 WBC (Bld) 1 % 0 - 2 % [place] Differential Type NOT REPORTED [place] Eosinophils (Bld) [#/Vol] 0.13 10*3/uL [place] Eosinophils/100 WBC (Bld) 2 % 1 - 4 % [place] Erythrocyte distribution width (RBC) [Ratio] 13.2 % 11.8 - 14.4 % [place] Hematocrit (Bld) [Volume fraction] 36.7 % 36.3 - 47.1 % [place] Hemoglobin (Bld) [Mass/Vol] 11.8 g/dL Low 11.9 - 15.1 g/dL [place] Immature granulocytes (Bld) [#/Vol] 0 % 0 [place] Immature granulocytes (Bld) [#/Vol] 10*3/uL [place] Interpretation and review of laboratory results Abnormal [place] Lymphocytes (Bld) [#/Vol] 2.39 10*3/uL [place] Lymphocytes/100 WBC (Bld) 28 % 24 - 43 % [place] MCH (RBC) [Entitic mass] 32.1 pg 25.2 - 33.5 pg [place] MCHC (RBC) [Mass/Vol] 32.2 g/dL 28.4 - 34.8 g/dL [place] MCV (RBC) [Entitic vol] 99.7 fL 82.6 - 102.9 fL [place] Monocytes (Bld) [#/Vol] 0.77 10*3/uL [place] Monocytes/100 WBC (Bld) 9 % 3 - 12 % [place] Platelet mean volume (Bld) [Entitic vol] 10.1 fL 8.1 - 13.5 fL [place] Platelets (Bld) [#/Vol] 174 10*3/uL [place] Platelets (Bld) [#/Vol] NOT REPORTED [place] RBC (Bld) [#/Vol] 3.68 10*6/uL Low 3.95 - 5.11 m/uL [place] RBC morphology finding Nom (Bld) NOT REPORTED [place] Segmented neutrophils/100 WBC (Bld) 60 % 36 - 65 % [place] Segs Absolute 5.22 [place], [place] WBC (Bld) [#/Vol] 0.0 10*3/uL 0.0 per 100 WBC [place] WBC (Bld) [#/Vol] 8.6 10*3/uL [place] WBC Morphology NOT REPORTED [place], [place] Comprehensive metabolic pane nimesh 08-23-2019 Albumin [Mass/Vol] 3.4 g/dL Low 3.5 - 5.2 g/dL [place] Albumin/Globulin [Mass ratio] 1.7 {ratio} [place] ALP [Catalytic activity/Vol] 102 U/L 35 - 104 U/L [place] ALT [Catalytic activity/Vol] 34 U/L High 5 - 33 U/L [place] Anion gap [Moles/Vol] 7 mmol/L Low 9 - 17 mmol/L [place] AST [Catalytic activity/Vol] 95 U/L High <32 [place] Bilirubin Ql (U) 0.46 mg/dL 0.3 - 1.2 mg/dL [place] Bun/Cre Ratio 11 [place], [place] Calcium [Mass/Vol] 8.4 mg/dL Low 8.6 - 10. 4 mg/dL [place] Chloride [Moles/Vol] 109 mmol/L High 98 - 10 7 mmol/L [place] CO2 [Moles/Vol] 22 mmol/L 20 - 31 mmol/L [place] Creatinine [Mass/Vol] 0.66 mg/dL 0.5 - 0.9 mg/dL [place] GFR >60 >60 mL/min [place] GFR Non- >60 >60 mL/min [place] Glucose [Mass/Vol] 89 mg/dL 70 - 99 mg/dL [place] Potassium [Moles/Vol] 4.3 mmol/L 3.7 - 5.3 mmol/L [place] Protein [Mass/Vol] 5.4 g/dL Low 6.4 - 8.3 g/dL [place] Sodium [Moles/Vol] 138 mmol/L 135 - 144 mmol/L [place] Urea nitrogen [Mass/Vol] 7 mg/dL 6 - 20 mg/dL [place] Lipaseon 08-23-2019 Lipase [Catalytic activity/Vol] 96 U/L High 13 - 60 U/L [place] Metabolic Panelon 08-23-2019 GFR/1.73 sq M predicted among non-blacks MDRD (S/P/Bld) [Vol rate/Area] [place], [place] Comment on above: Stage 1: Some [...] body mass. Additional eGFR calculator available at: http://www.[employer]/multiple_crcl_2012.htm Otheron 08-23-2019 Interpretation and review of laboratory results Abnormal [place] CBC Auto Differentialon 08-07 Basophils (Bld) [#/Vol] 0.06 10*3/uL [place] Basophils/100 WBC (Bld) 1 % 0 - 2 % [place] Differential Type NOT REPORTED [place] Eosinophils (Bld) [#/Vol] 0.11 10*3/uL [place] Eosinophils/100 WBC (Bld) 1 % 1 - 4 % [place] Erythrocyte distribution width (RBC) [Ratio] 13.2 % 11.8 - 14.4 % [place] Hematocrit (Bld) [Volume fraction] 41.8 % 36.3 - 47.1 % [place] Hemoglobin (Bld) [Mass/Vol] 13.7 g/dL 11.9 - 15.1 g/dL [place] Immature granulocytes (Bld) [#/Vol] 0.03 10*3/uL [place] Immature granulocytes (Bld) [#/Vol] 0 % 0 [place] Interpretation and review of laboratory results Abnormal [place] Lymphocytes (Bld) [#/Vol] 2.23 10*3/uL [place] Lymphocytes/100 WBC (Bld) 24 % 24 - 43 % [place] MCH (RBC) [Entitic mass] 32.6 pg 25.2 - 33.5 pg [place] MCHC (RBC) [Mass/Vol] 32.8 g/dL 28.4 - 34.8 g/dL [place] MCV (RBC) [Entitic vol] 99.5 fL 82.6 - 102.9 fL [place] Monocytes (Bld) [#/Vol] 0.72 10*3/uL [place] Monocytes/100 WBC (Bld) 8 % 3 - 12 % [place] Platelet mean volume (Bld) [Entitic vol] 10.0 fL 8.1 - 13.5 fL [place] Platelets (Bld) [#/Vol] NOT REPORTED [place] Platelets (Bld) [#/Vol] 213 10*3/uL [place] RBC (Bld) [#/Vol] 4.20 10*6/uL 3.95 - 5.11 m/uL [place] RBC morphology finding Nom (Bld) NOT REPORTED [place] Segmented neutrophils/100 WBC (Bld) 66 % High 36 - 65 % [place] Segs Absolute 6.22 [place], [place] WBC (Bld) [#/Vol] 0.0 10*3/uL 0.0 per 100 WBC [place] WBC (Bld) [#/Vol] 9.4 10*3/uL [place] WBC Morphology NOT REPORTED [place], [place] Comprehensive Metabolic Pane nimesh 08-22-2019 Albumin [Mass/Vol] 4.1 g/dL 3.5 - 5.2 g/dL [place] Albumin/Globulin [Mass ratio] 1.6 {ratio} [place] ALP [Catalytic activity/Vol] 109 U/L High 35 - 104 U/L [place] ALT [Catalytic activity/Vol] 13 U/L 5 - 33 U/L [place] Anion gap [Moles/Vol] 9 mmol/L 9 - 17 mmol/L [place] AST [Catalytic activity/Vol] 22 U/L <32 [place] Bilirubin Ql (U) <0.10 Low 0.3 - 1.2 mg/dL [place], [place] Bun/Cre Ratio 13 [place], [place] Calcium [Mass/Vol] 9.2 mg/dL 8.6 - 10. 4 mg/dL [place] Chloride [Moles/Vol] 103 mmol/L 98 - 10 7 mmol/L [place] CO2 [Moles/Vol] 24 mmol/L 20 - 31 mmol/L [place] Creatinine [Mass/Vol] 0.63 mg/dL 0.5 - 0.9 mg/dL [place] GFR >60 >60 mL/min [place] GFR Non- >60 >60 mL/min [place] Glucose [Mass/Vol] 92 mg/dL 70 - 99 mg/dL [place] Interpretation and review of laboratory results Abnormal [place] Potassium [Moles/Vol] 3.8 mmol/L 3.7 - 5.3 mmol/L [place] Protein [Mass/Vol] 6.7 g/dL 6.4 - 8.3 g/dL [place] Sodium [Moles/Vol] 136 mmol/L 135 - 144 mmol/L [place] Urea nitrogen [Mass/Vol] 8 mg/dL 6 - 20 mg/dL [place] Lactic Acid, Plasmaon 2019 Lactate [Moles/Vol] 1.5 mmol/L 0.5 - 2. 2 mmol/L [place], [place] Lactic Acid, Whole Blood NOT REPORTED 0.7 - 2.1 mmol/L [place] Lipaseon 08-22-2019 Interpretation and review of laboratory results Abnormal [place] Lipase [Catalytic activity/Vol] 255 U/L Critically high 13 - 60 U/L [place] Metabolic Panelon 08-22-2019 GFR/1.73 sq M predicted among non-blacks MDRD (S/P/Bld) [Vol rate/Area] [place], [place] Comment on above: Average GFR for 50-5 9 years old: 93 mL/min/1.73sq m Chronic Kidney Disease: <60 mL/min/1.73sq m Kidney failure: <15 mL/min/1.73sq m eGFR calculated using average adult body mass. Additional eGFR calculator available at: http://www.[employer]/multiple_crcl_2012.htm Stage 1: Some kidney damage normal GFR Stage 2: Mild kidney damage GFR 60-89 Stage 3: Moderate kidney damage GFR 30-59 Stage 4: Severe kidney damage GFR 15-29 Stage 5: Severe kidney damage GFR <15 ESRD - chronic treatment by dialysis or transplant Urinalysis with Microscopico n 08-22-2019 Amorphous, UA NOT REPORTED None [facility] [place] Bacteria, UA NOT REPORTED None [place], [place] Bilirubin Urine Negative NEGATIVE [facility], [place] Casts UA NOT REPORTED /LPF [place] Color, UA YELLOW YELLOW [place] Crystals, UA NOT REPORTED None /HPF [place] Epithelial Cells UA 2 TO 5 [place], [place] Glucose, Ur Negative NEGATIVE [place] Interpretation and review of laboratory results Abnormal [place] Ketones Ql (U) Negative NEGATIVE [place] Leukocyte esterase Test strip Ql (U) Negative NEGATIVE [place] Mucus, UA NOT REPORTED None [place] Nitrite, Urine Negative NEGATIVE [place] Other Observations UA NOT REPORTED NOT REQ. M [facility], [place] pH, UA 6.0 [place] Protein (U) [Mass/Vol] Negative NEGATIVE [place], [place] RBC (U) [#/Vol] None [facility] [place] Renal Epithelial, UA NOT REPORTED 0 /HPF [facility], [place] Specific [place], UA <1.005 Low [place] Trichomonas, UA NOT REPORTED None [facility] [place], [place] Turbidity UA CLEAR CLEAR [place] Urinalysis Comments NOT REPORTED [place], [place] Urine Hgb Negative NEGATIVE [place] Urobilinogen, Urine Normal Normal [place] WBC, UA None [place] Yeast, UA NOT REPORTED None [facility], [place] - [facility], [place] CBC WITH AUTO DIFFERENTIALon 03-04-2018 Basophils Auto #/vol (Bld) 0.07 10*3/uL Invalid Interpretation Code [facility] Basophils/100 WBC Auto (Bld) 0.7 % Invalid Interpretation Code [facility] Eosinophils Auto #/vol (Bld) 0.09 10*3/uL Invalid Interpretation Code [facility] Eosinophils/100 WBC Auto (Bld) 0.9 % Invalid Interpretation Code [facility] Erythrocyte distribution width Auto Entitic volume (RBC) 12.8 % Invalid Interpretation Code 11.6 - 14.8 % [facility] Hematocrit Auto Volume Fraction (Bld) 45.0 % Invalid Interpretation Code 36 - 46 % [facility] Hemoglobin mass conc (Bld) 15.4 g/dL Invalid Interpretation Code 12 - 16 g/dL [facility] Immature granulocytes #/vol (Bld) 0.03 10*3/uL Invalid Interpretation Code [facility] Immature granulocytes/100 WBC (Bld) 0.30 % Invalid Interpretation Code [facility] Comment on above: The IG parameter is the percentage of metamyelocytes, myelocytes, and promyelocytes. Interpretation and review of laboratory results Abnormal Invalid Interpretation Code [facility] Lymphocytes Auto #/vol (Bld) 2.22 10*3/uL Invalid Interpretation Code [facility] Lymphocytes/100 WBC Auto (Bld) 21.0 % Invalid Interpretation Code [facility] MCH Auto Entitic mass (RBC) 33.6 pg Invalid Interpretation Code 26 - 34 pg [facility] MCHC Auto mass conc (RBC) 34.2 g/dL Invalid Interpretation Code 31 - 37 g/dL [facility] MCV Auto Entitic volume (RBC) 98.0 fL Invalid Interpretation Code 80 - 100 fL [facility] Monocytes Auto #/vol (Bld) 0.82 10*3/uL Invalid Interpretation Code [facility] Monocytes/100 WBC Auto (Bld) 7.8 % Invalid Interpretation Code [facility] Neutrophils Auto #/vol (Bld) 7.33 10*3/uL High [facility] Neutrophils/100 WBC Auto (Bld) 69.3 % Invalid Interpretation Code [facility] Nucleated RBC #/vol (Bld) 0.00 10*3/uL Invalid Interpretation Code [facility] Nucleated RBC/100 WBC Ratio (Bld) 0.0 % Invalid Interpretation Code [facility] Platelet mean volume Auto Entitic volume (Bld) 10.1 fL Invalid Interpretation Code 9 - 15.5 fL [facility] Platelets Auto #/vol (Bld) 254 10*3/uL Invalid Interpretation Code [facility] RBC Auto #/vol (Bld) 4.59 10*6/uL Invalid Interpretation Code [facility] WBC Auto #/vol (Bld) 10.56 10*3/uL Invalid Interpretation Code [facility] Chem 7on 03-04-2018 Anion gap 3 molar conc 15 mmol/L Invalid Interpretation Code 10 - 20 mmol/L [facility] Chloride molar conc 103 mmol/L Invalid Interpretation Code 98 - 108 mmol/L [facility] Creatinine mass conc 0.85 mg/dL Invalid Interpretation Code 0.4 - 1.1 mg/dL [facility] GFR/1.73 sq M predicted among non-blacks MDRD vol rate/area (S/P/Bld) The eGFR should be used for monitoring renal function only and not for medication dosing. Invalid Interpretation Code [facility] GFR/1.73 sq M.predicted CKD-EPI vol rate/area (S/P/Bld) 81 Invalid Interpretation Code >=60 mL/min/1.7 3 m2 [facility] Glucose mass conc 92 mg/dL Invalid Interpretation Code 65 - 99 mg/dL [facility] HCO3 molar conc 25 mmol/L Invalid Interpretation Code 21 - 32 mmol/L [facility] Potassium molar conc 4.4 mmol/L Invalid Interpretation Code 3.5 - 5.1 mmol/L [facility] Sodium molar conc 139 mmol/L Invalid Interpretation Code 135 - 145 mmol/L [facility] Urea nitrogen mass conc 7 mg/dL Low 8 - 25 mg/dL [facility] Urea nitrogen/Creatinine mass ratio 8.2 mg/mg Low [facility] Hepatic Function Panel (LFT) on 03-04-2018 Albumin mass conc 4.5 g/dL Invalid Interpretation Code 3.2 - 5.2 g/dL [facility] ALP enzyme act/vol 97 U/L Invalid Interpretation Code 40 - 150 U/L [facility] ALT enzyme act/vol 9 U/L Invalid Interpretation Code 0 - 40 U/L [facility] AST enzyme act/vol 15 U/L Invalid Interpretation Code 0 - 45 U/L [facility] Bilirubin mass conc mg/dL Invalid Interpretation Code 0 - 1.3 mg/dL [facility] Bilirubin.conjugated mass conc mg/dL Invalid Interpretation Code 0 - 0.4 mg/dL [facility] Interpretation and review of laboratory results Normal Invalid Interpretation Code [facility] Protein mass conc 7.2 g/dL Invalid Interpretation Code 6 - 8 g/dL [facility] Lipaseon 03-04-2018 Lipase enzyme act/vol 179 U/L High 15 - 6 5 U/L [facility] Otheron 03-04-2018 Extra Tube Hold for add-ons. Invalid Interpretation Code [facility] Comment on above: Auto resulted. Interpretation and review of laboratory results Abnormal Invalid Interpretation Code [facility] URINALYSISon 03-04-2018 Bacteria Auto Ql (U) Rare Abnormal None Se en /hpf [facility] Bilirubin Ql (U) Negative Invalid Interpretation Code Negative [facility] Clarity Refractometry automated Nom (U) Clear Invalid Interpretation Code Clear [facility] Color Auto Nom (U) Colorless Invalid Interpretation Code Colorless, Yellow [facility] Epithelial cells.squamous Auto #/area (Urine sed) 1 Invalid Interpretation Code [facility] Glucose Automated test strip mass conc (U) Negative Invalid Interpretation Code Negative mg/dL [facility] Hemoglobin Automated test strip Ql (U) Negative Invalid Interpretation Code Negative [facility] Interpretation and review of laboratory results Abnormal Invalid Interpretation Code [facility] Ketones mass conc (U) Negative Invalid Interpretation Code Negative mg/dL [facility] Leukocyte esterase Automated test strip Ql (U) Negative Invalid Interpretation Code Negative [facility] Nitrite Automated test strip Ql (U) Negative Invalid Interpretation Code Negative [facility] pH Test strip (U) 7.0 [pH] Invalid Interpretation Code [facility] Protein mass conc (U) Negative Invalid Interpretation Code Negative mg/dL [facility] RBC Auto #/area (Urine sed) 2 Invalid Interpretation Code [facility] Specific gravity Automated test strip Relative Density (U) 1.004 Low [facility] Urobilinogen Test strip Qn (U) <2.0 Invalid Interpretation Code <2.0 mg/dL [facility] WBC Auto #/area (Urine sed) <1 Invalid Interpretation Code [facility] Microscopic examinat ion is performed on all urinalysis samples and only positive findings are reported. The test for blood on the chemical analytic portion of urinalysis may also be positive due to hemoglobinuria and myoglobinuria and if red blood cells are present they are quantified by microscopic examination. Invalid Interpretation Code [facility] BMPon 08-24-2017 Anion gap 18 mmol/L Invalid Interpretation Code 10 - 20 mmol/L [facility] Bicarbonate (HCO3) 27 mmol/L Invalid Interpretation Code 21 - 32 mmol/L [facility] BUN/Creatinine Ratio 10.1 mg/mg Invalid Interpretation Code 10.0 - 20.0 [facility] Calcium 10.6 mg/dL High 8.4 - 10.2 mg/dL [facility] Chloride 101 mmol/L Invalid Interpretation Code 98 - 108 mmol/L [facility] Creatinine 0.69 mg/dL Invalid Interpretation Code 0.4 - 1.1 mg/dL [facility] eGFR (non-black) 103 mL/min/{1.73_m2} Invalid Interpretation Code >=60 [facility] eGFR (non-black) The eGFR should be u sed for monitoring renal function only and not for medication dosing. Invalid Interpretation Code [facility] Glucose mass conc 105 mg/dL High 65 - 99 mg/dL [facility] Interpretation and review of laboratory results Abnormal Invalid Interpretation Code [facility] Potassium molar conc 4.1 mmol/L Invalid Interpretation Code 3.5 - 5.1 mmol/L [facility] Sodium 142 mmol/L Invalid Interpretation Code 135 - 145 mmol/L [facility] Urea nitrogen 7 mg/dL Low 8 - 25 mg/dL [facility] CBC Auto Differentialon 08-07 Basophils Auto #/vol (Bld) 0.08 K/mcL Invalid Interpretation Code 0.00 - 0.30 [facility] Basophils/100 WBC Auto (Bld) 0.6 % Invalid Interpretation Code [facility] Eosinophils 0.05 K/mcL Invalid Interpretation Code 0.00 - 0.50 [facility] Eosinophils/100 leukocytes 0.4 % Invalid Interpretation Code [facility] Erythrocyte distribution width Auto Entitic volume (RBC) 12.2 % Invalid Interpretation Code 11.6 - 14.8 % [facility] Erythrocytes (RBC) 4.60 M/mcL Invalid Interpretation Code 4.00 - 5.20 [facility] Hematocrit (HCT) 43.4 % Invalid Interpretation Code 36 - 46 % [facility] Hemoglobin mass conc (Bld) 15.2 g/dL Invalid Interpretation Code 12 - 16 g/dL [facility] Immature granulocytes #/vol (Bld) 0.05 K/mcL Invalid Interpretation Code 0.00 - 0.30 [facility] Immature granulocytes/100 WBC (Bld) 0.40 % Invalid Interpretation Code [facility] Comment on above: The IG parameter is the percentage of metamyelocytes, myelocytes, and promyelocytes. Lymphocytes 2.40 K/mcL Invalid Interpretation Code 0.90 - 4.00 [facility] Lymphocytes/100 leukocytes 18.1 % Invalid Interpretation Code [facility] MCH 33.0 pg Invalid Interpretation Code 26 - 34 pg [facility] MCHC mass conc (RBC) 35.0 g/dL Invalid Interpretation Code 31 - 37 g/dL [facility] MCV 94.3 fL Invalid Interpretation Code 80 - 100 fL [facility] Monocytes 0.85 K/mcL Invalid Interpretation Code 0.30 - 0.90 [facility] Monocytes/100 leukocytes 6.4 % Invalid Interpretation Code [facility] Neutrophils 9.81 K/mcL High 1.70 - 7.00 [facility] Neutrophils/100 WBC Auto (Bld) 74.1 % Invalid Interpretation Code [facility] Nucleated erythrocytes 0.00 K/mcL Invalid Interpretation Code 0.00 - 0.00 [facility] Nucleated erythrocytes/100 erythrocytes 0.0 % Invalid Interpretation Code [facility] Platelet mean volume (PMV) 10.0 fL Invalid Interpretation Code 9 - 15.5 fL [facility] Platelets 242 K/mcL Invalid Interpretation Code 150 - 400 [facility] WBC (Leukocytes) 13.24 K/mcL High 4.50 - 11.00 [facility] CBC w/ Diffon 08-24-2017 Creatinine The following orders were created for panel order CBC w/ Diff. Procedure Abnormality Status --------- ------ CBC Auto Differential[[id number]] Abnormal Final result Please view results for these tests on the individual orders. Invalid Interpretation Code [facility] CT ABDOMEN PELVIS WITH IV [...] and demonstrated a prominent signal loss on [id number] images on MRI performed 09/06/2014, compatible with [...] 24, 2017 3:53:38 PM EDTTranscribed by: RON KLELOGG on ThuAug 24, 2017 4:00:38 PM EDTFinalized by: PONCHO GALAVIZ on ThuAug 24, 2017 4:03:34 PM EDT [place] [facility] Comment on above: Order Comment: Reaso n for exam?:abd painInjury/Trauma or Illness?:Illness/OtherHow long have you had these symptoms (acute/chronic)?:ChronicType of Exam?:Subsequent/Follow-upAdditional signs and symptoms?:chronic pancreatitis CT Abdomen Pelvis With IV Co ntrast Onlyon 08-24-2017 CT Abdomen Pelvis With IV Contrast Only Interface, Rad In [facility] - 08/24/2017 4:06 PM EDT EXAMINATION: [...] and demonstrated a prominent signal loss on [id number] images on MRI performed 09/06/2014, compatible with [...] probably remain. 5. Small left adrenal adenoma. [employer] Workstation ID: [id number] Invalid Interpretation Code [employer] [facility] CT Abdomen Pelvis With IV [...] and demonstrated a prominent signal loss on [id number] images on MRI performed 09/06/2014, compatible with [...] suspicious focal osseous lesions. Invalid Interpretation Code [employer] [facility] CT Abdomen Pelvis With IV [...] probably remain. 5. Small left adrenal adenoma. [employer] Workstation ID: [id number] Invalid Interpretation Code [employer] [facility] Hepatic Function Panel (LFT) on 08-24-2017 Alanine aminotransferase (ALT) 14 U/L Invalid Interpretation Code 0 - 40 U/L [facility] Albumin 4.7 g/dL Invalid Interpretation Code 3.2 - 5.2 g/dL [facility] Alkaline phosphatase (ALP) 91 U/L Invalid Interpretation Code 40 - 150 U/L [facility] Aspartate aminotransferase (AST) 17 U/L Invalid Interpretation Code 0 - 45 U/L [facility] Bilirubin (conjugated) mg/dL Invalid Interpretation Code 0 - 0.4 mg/dL [facility] Bilirubin (total) mg/dL Invalid Interpretation Code 0 - 1.3 mg/dL [facility] Interpretation and review of laboratory results Normal Invalid Interpretation Code [facility] Protein 7.4 g/dL Invalid Interpretation Code 6 - 8 g/dL [facility] Lactic Acid, Plasmaon 2017 Lactate 1.0 mmol/L Invalid Interpretation Code 0.6 - 2 mmol/L [facility] [place] Blue Topon 08-24-2017 Extra Tube Hold for add-ons. Invalid Interpretation Code [facility] Comment on above: Auto resulted. Lipaseon 08-24-2017 Lipase 51 U/L Invalid Interpretation Code 15 - 65 U/L [facility] [place] Topon 08-24-2017 [place] Top Invalid Interpretation Code [facility] [place] Drawon 08-24-2017 Creatinine The following orders were created for panel order [place] Draw. Procedure Abnormality Status --------- ------ Gold Top[[id number]] Final result Light Blue Top[[id number]] Final result [place] Top[[id number]] Final result Please view results for these tests on the individual orders. Invalid Interpretation Code [facility] Ur[facility] 08-24-2017 Bilirubin Ql (U) Negative Invalid Interpretation Code Negative [facility] Blood, Urine Negative Invalid Interpretation Code Negative [facility] Interpretation and review of laboratory results Abnormal Invalid Interpretation Code [facility] Nitrite, Urine Negative Invalid Interpretation Code Negative [facility] Squamous Epithelial 5 /hpf High 0 - 4 [facility] Transitional Epithelial <1 Invalid Interpretation Code 0 - 1 /hpf [facility] Urine, bacteria in sediment Rare Abnormal None Seen /hpf [facility] Urine, clarity Hazy Abnormal Clear [facility] Urine, color Yellow Invalid Interpretation Code Colorless, Yellow [facility] Urine, erythrocytes 1 /hpf Invalid Interpretation Code 0 - 3 [facility] Urine, glucose presence Negative Invalid Interpretation Code Negative mg/dL [facility] Urine, ketones presence Negative Invalid Interpretation Code Negative mg/dL [facility] Urine, leukocyte esterase presence Negative Invalid Interpretation Code Negative [facility] Urine, pH 7.0 [pH] Invalid Interpretation Code 5.0 - 7.0 [facility] Urine, protein Negative Invalid Interpretation Code Negative mg/dL [facility] Urine, specific gravity 1.006 1 Invalid Interpretation Code 1.005 - 1.025 [facility] Urine, urobilinogen <2.0 Invalid Interpretation Code <2.0 mg/dL [facility] WBCs, Urine 1 /hpf Invalid Interpretation Code 0 - 5 [facility] Urinalysis Microscopic examinat ion is performed on all urinalysis samples and only positive findings are reported. The test for blood on the chemical analytic portion of urinalysis may also be positive due to hemoglobinuria and myoglobinuria and if red blood cells are present they are quantified by microscopic examination. Invalid Interpretation Code [facility] BMPon 06-09-2017 Anion gap 18 mmol/L Invalid Interpretation Code 10 - 20 mmol/L [facility] Bicarbonate (HCO3) 21 mmol/L Invalid Interpretation Code 21 - 32 mmol/L [facility] BUN/Creatinine Ratio 11.0 mg/mg Invalid Interpretation Code 10.0 - 20.0 [facility] Calcium 10.2 mg/dL Invalid Interpretation Code 8.4 - 10.2 mg/dL [facility] Chloride 102 mmol/L Invalid Interpretation Code 98 - 108 mmol/L [facility] Creatinine 0.73 mg/dL Invalid Interpretation Code 0.4 - 1.1 mg/dL [facility] eGFR (non-black) The eGFR should be u sed for monitoring renal function only and not for medication dosing. Invalid Interpretation Code [facility] eGFR (non-black) 98 mL/min/{1.73_m2} Invalid Interpretation Code >=60 [facility] Glucose 80 mg/dL Invalid Interpretation Code 65 - 99 mg/dL [facility] Potassium 4.3 mmol/L Invalid Interpretation Code 3.5 - 5.1 mmol/L [facility] Sodium 137 mmol/L Invalid Interpretation Code 135 - 145 mmol/L [facility] Urea nitrogen 8 mg/dL Invalid Interpretation Code 8 - 25 mg/dL [facility] CBC Auto Differentialon 04-0 Basophils 0.07 K/mcL Invalid Interpretation Code 0.00 - 0.30 [facility] Basophils/100 leukocytes 0.7 % Invalid Interpretation Code [facility] Eosinophils 0.10 K/mcL Invalid Interpretation Code 0.00 - 0.50 [facility] Eosinophils/100 leukocytes 1.0 % Invalid Interpretation Code [facility] Erythrocytes (RBC) 4.75 M/mcL Invalid Interpretation Code 4.00 - 5.20 [facility] Erythrocytes (RBC) 0.00 K/mcL Invalid Interpretation Code 0.00 - 0.00 [facility] Hematocrit (HCT) 46.1 % High 36 - 46 % [facility] Hemoglobin (HGB) 16.1 g/dL High 12 - 16 g/dL [facility] IG Absolute 0.02 K/mcL Invalid Interpretation Code 0.00 - 0.30 [facility] IG Percent 0.20 % Invalid Interpretation Code [facility] Lymphocytes 1.75 K/mcL Invalid Interpretation Code 0.90 - 4.00 [facility] Lymphocytes/100 leukocytes 17.9 % Invalid Interpretation Code [facility] MCH 33.9 pg Invalid Interpretation Code 26 - 34 pg [facility] MCHC 34.9 g/dL Invalid Interpretation Code 31 - 37 g/dL [facility] MCV 97.1 fL Invalid Interpretation Code 80 - 100 fL [facility] Monocytes 0.88 K/mcL Invalid Interpretation Code 0.30 - 0.90 [facility] Monocytes/100 leukocytes 9.0 % Invalid Interpretation Code [facility] Neutrophils 6.98 K/mcL Invalid Interpretation Code 1.70 - 7.00 [facility] Neutrophils/100 leukocytes 71.2 % Invalid Interpretation Code [facility] Nucleated erythrocytes/100 erythrocytes 0.0 % Invalid Interpretation Code [facility] Platelet mean volume (PMV) 10.9 fL Invalid Interpretation Code 9 - 15.5 fL [facility] Platelets 223 K/mcL Invalid Interpretation Code 150 - 400 [facility] RDW-CA 12.8 % Invalid Interpretation Code 11.6 - 14.8 % [facility] WBC (Leukocytes) 9.80 K/mcL Invalid Interpretation Code 4.50 - 11.00 [facility] Interpretation and review of laboratory results Abnormal Invalid Interpretation Code [facility] CBC w/ Diffon 06-09-2017 Creatinine The following orders were created for panel order CBC w/ Diff. Procedure Abnormality Status --------- ------ CBC Auto Differential[[id number]] Abnormal Final result Please view results for these tests on the individual orders. Invalid Interpretation Code [facility] Hepatic Function Panel (LFT) on 06-09-2017 Alanine aminotransferase (ALT) 10 U/L Invalid Interpretation Code 0 - 40 U/L [facility] Albumin 4.4 g/dL Invalid Interpretation Code 3.2 - 5.2 g/dL [facility] Alkaline phosphatase (ALP) 89 U/L Invalid Interpretation Code 40 - 150 U/L [facility] Aspartate aminotransferase (AST) 20 U/L Invalid Interpretation Code 0 - 45 U/L [facility] Bilirubin (conjugated) mg/dL Invalid Interpretation Code 0 - 0.4 mg/dL [facility] Bilirubin (total) mg/dL Invalid Interpretation Code 0 - 1.3 mg/dL [facility] Interpretation and review of laboratory results Normal Invalid Interpretation Code [facility] Protein 7.3 g/dL Invalid Interpretation Code 6 - 8 g/dL [facility] Lipaseon 06-09-2017 Lipase 50 U/L Invalid Interpretation Code 15 - 65 U/L [facility] [place] Draw[place] 06-09-2017 Creatinine The following orders were created for panel order [place] Draw. Procedure Abnormality Status --------- ------ Urine Container[[id number]] Final result Please view results for these tests on the individual orders. Invalid Interpretation Code [facility] Urinalysison 06-09-2017 Bilirubin, Urine Negative Invalid Interpretation Code Negative [facility] Blood, Urine Negative Invalid Interpretation Code Negative [facility] Calcium Many Abnormal None Seen /hpf [facility] Mucus, Urine Rare Invalid Interpretation Code None Seen, Rare /lpf [facility] Nitrite, Urine Negative Invalid Interpretation Code Negative [facility] RBCs, Urine 1 /hpf Invalid Interpretation Code 0 - 3 [facility] Squamous Epithelial 4 /hpf Invalid Interpretation Code 0 - 4 [facility] Urine, bacteria in sediment None Seen Invalid Interpretation Code None Seen /hpf [facility] Urine, clarity Cloudy Abnormal Clear [facility] Urine, color Yellow Invalid Interpretation Code Colorless, Yellow [facility] Urine, glucose presence Negative Invalid Interpretation Code Negative mg/dL [facility] Urine, ketones presence Trace Abnormal Negative mg/dL [facility] Urine, leukocyte esterase presence Negative Invalid Interpretation Code Negative [facility] Urine, pH 5.0 [pH] Invalid Interpretation Code 5.0 - 7.0 [facility] Urine, protein Negative Invalid Interpretation Code Negative mg/dL [facility] Urine, specific gravity 1.024 1 Invalid Interpretation Code 1.005 - 1.025 [facility] Urine, urobilinogen 2.0 mg/dL Abnormal <2.0 [facility] WBCs, Urine 1 /hpf Invalid Interpretation Code 0 - 5 [facility] Urinalysis Microscopic examinat ion is performed on all urinalysis samples and only positive findings are reported. The test for blood on the chemical analytic portion of urinalysis may also be positive due to hemoglobinuria and myoglobinuria and if red blood cells are present they are quantified by microscopic examination. Invalid Interpretation Code [facility] Urine Containeron 06-09-2017 Urine Container Invalid Interpretation Code [facility] CBCon 05-15-2017 Erythrocytes (RBC) 3.76 M/mcL Low 4.00 - 5.20 [facility] Erythrocytes (RBC) 0.00 K/mcL Invalid Interpretation Code 0.00 - 0.00 [facility] Hematocrit (HCT) 37.1 % Invalid Interpretation Code 36 - 46 % [facility] Hemoglobin (HGB) 12.4 g/dL Invalid Interpretation Code 12 - 16 g/dL [facility] MCH 33.0 pg Invalid Interpretation Code 26 - 34 pg [facility] MCHC 33.4 g/dL Invalid Interpretation Code 31 - 37 g/dL [facility] MCV 98.7 fL Invalid Interpretation Code 80 - 100 fL [facility] Nucleated erythrocytes/100 erythrocytes 0.0 % Invalid Interpretation Code [facility] Platelet mean volume (PMV) 9.9 fL Invalid Interpretation Code 9 - 15.5 fL [facility] Platelets 197 K/mcL Invalid Interpretation Code 150 - 400 [facility] RDW-CA 12.6 % Invalid Interpretation Code 11.6 - 14.8 % [facility] WBC (Leukocytes) 7.55 K/mcL Invalid Interpretation Code 4.50 - 11.00 [facility] Comprehensive Metabolic Pane nimesh 05-15-2017 Alanine aminotransferase (ALT) 9 U/L Invalid Interpretation Code 0 - 40 U/L [facility] Albumin 3.3 g/dL Invalid Interpretation Code 3.2 - 5.2 g/dL [facility] Alkaline phosphatase (ALP) 73 U/L Invalid Interpretation Code 40 - 150 U/L [facility] Anion gap 15 mmol/L Invalid Interpretation Code 10 - 20 mmol/L [facility] Aspartate aminotransferase (AST) 13 U/L Invalid Interpretation Code 0 - 45 U/L [facility] Bicarbonate (HCO3) 23 mmol/L Invalid Interpretation Code 21 - 32 mmol/L [facility] Bilirubin (total) 0.2 mg/dL Invalid Interpretation Code 0 - 1.3 mg/dL [facility] BUN/Creatinine Ratio 9.4 mg/mg Low 10.0 - 20.0 [facility] Calcium 8.4 mg/dL Invalid Interpretation Code 8.4 - 10.2 mg/dL [facility] Chloride 108 mmol/L Invalid Interpretation Code 98 - 108 mmol/L [facility] Creatinine 0.64 mg/dL Invalid Interpretation Code 0.4 - 1.1 mg/dL [facility] eGFR (non-black) The eGFR should be u sed for monitoring renal function only and not for medication dosing. Invalid Interpretation Code [facility] eGFR (non-black) 107 mL/min/{1.73_m2} Invalid Interpretation Code >=60 [facility] Glucose 91 mg/dL Invalid Interpretation Code 65 - 99 mg/dL [facility] Potassium 4.0 mmol/L Invalid Interpretation Code 3.5 - 5.1 mmol/L [facility] Protein 5.3 g/dL Low 6 - 8 g/dL [facility] Sodium 142 mmol/L Invalid Interpretation Code 135 - 145 mmol/L [facility] Urea nitrogen 6 mg/dL Low 8 - 25 mg/dL [facility] Lipaseon 05-15-2017 Interpretation and review of laboratory results Normal Invalid Interpretation Code [facility] Lipase 31 U/L Invalid Interpretation Code 15 - 65 U/L [facility] Lipid Panelon 05-15-2017 Cholesterol 193 mg/dL Invalid Interpretation Code 100 - 199 mg/dL [facility] Cholesterol to HDL Ratio 7.1 {ratio} Invalid Interpretation Code [facility] HDL Cholesterol 27 mg/dL Low 40 - 59 mg/dL [facility] HDL Cholesterol 166 mg/dL Invalid Interpretation Code [facility] Interpretation and review of laboratory results Abnormal Invalid Interpretation Code [facility] LDL Cholesterol 108 mg/dL Invalid Interpretation Code 10 - 130 mg/dL [facility] Triglyceride 291 mg/dL High 30 - 150 mg/dL [facility] BMPon 05-14-2017 Anion gap 18 mmol/L Invalid Interpretation Code 10 - 20 mmol/L [facility] Bicarbonate (HCO3) 25 mmol/L Invalid Interpretation Code 21 - 32 mmol/L [facility] BUN/Creatinine Ratio 11.8 mg/mg Invalid Interpretation Code 10.0 - 20.0 [facility] Calcium 10.7 mg/dL High 8.4 - 10.2 mg/dL [facility] Chloride 102 mmol/L Invalid Interpretation Code 98 - 108 mmol/L [facility] Creatinine 0.68 mg/dL Invalid Interpretation Code 0.4 - 1.1 mg/dL [facility] eGFR (non-black) The eGFR should be u sed for monitoring renal function only and not for medication dosing. Invalid Interpretation Code [facility] eGFR (non-black) 105 mL/min/{1.73_m2} Invalid Interpretation Code >=60 [facility] Glucose 86 mg/dL Invalid Interpretation Code 65 - 99 mg/dL [facility] Potassium 4.0 mmol/L Invalid Interpretation Code 3.5 - 5.1 mmol/L [facility] Sodium 141 mmol/L Invalid Interpretation Code 135 - 145 mmol/L [facility] Urea nitrogen 8 mg/dL Invalid Interpretation Code 8 - 25 mg/dL [facility] CBC Auto Differentialon 03-0 Basophils 0.09 K/mcL Invalid Interpretation Code 0.00 - 0.30 [facility] Basophils/100 leukocytes 0.8 % Invalid Interpretation Code [facility] Eosinophils 0.08 K/mcL Invalid Interpretation Code 0.00 - 0.50 [facility] Eosinophils/100 leukocytes 0.7 % Invalid Interpretation Code [facility] Erythrocytes (RBC) 0.00 K/mcL Invalid Interpretation Code 0.00 - 0.00 [facility] Erythrocytes (RBC) 4.96 M/mcL Invalid Interpretation Code 4.00 - 5.20 [facility] Hematocrit (HCT) 48.5 % High 36 - 46 % [facility] Hemoglobin (HGB) 16.6 g/dL High 12 - 16 g/dL [facility] IG Absolute 0.04 K/mcL Invalid Interpretation Code 0.00 - 0.30 [facility] IG Percent 0.40 % Invalid Interpretation Code [facility] Interpretation and review of laboratory results Abnormal Invalid Interpretation Code [facility] Lymphocytes 1.89 K/mcL Invalid Interpretation Code 0.90 - 4.00 [facility] Lymphocytes/100 leukocytes 17.7 % Invalid Interpretation Code [facility] MCH 33.5 pg Invalid Interpretation Code 26 - 34 pg [facility] MCHC 34.2 g/dL Invalid Interpretation Code 31 - 37 g/dL [facility] MCV 97.8 fL Invalid Interpretation Code 80 - 100 fL [facility] Monocytes 0.74 K/mcL Invalid Interpretation Code 0.30 - 0.90 [facility] Monocytes/100 leukocytes 6.9 % Invalid Interpretation Code [facility] Neutrophils 7.86 K/mcL High 1.70 - 7.00 [facility] Neutrophils/100 leukocytes 73.5 % Invalid Interpretation Code [facility] Nucleated erythrocytes/100 erythrocytes 0.0 % Invalid Interpretation Code [facility] Platelet mean volume (PMV) 9.8 fL Invalid Interpretation Code 9 - 15.5 fL [facility] Platelets 275 K/mcL Invalid Interpretation Code 150 - 400 [facility] RDW-CA 12.8 % Invalid Interpretation Code 11.6 - 14.8 % [facility] WBC (Leukocytes) 10.70 K/mcL Invalid Interpretation Code 4.50 - 11.00 [facility] CBC w/ Diffon 05-14-2017 Creatinine The following orders were created for panel order CBC w/ Diff. Procedure Abnormality Status --------- ------ CBC Auto Differential[[id number]] Abnormal Final result Please view results for these tests on the individual orders. Invalid Interpretation Code [facility] CT ABDOMEN PELVIS WITH IV [...] appendix in the left lower pelvis.Workstation ID: [id number] by: ERROL ANN on ThuMay 14, 2017 4:08:10 PM ESTTranscribed by: ERROL ANN on ThuMay 14, 2017 4:08:10 PM ESTFinalized by: ERROL ANN on ThuMay 14, 2017 4:08:10 PM EST Normal [facility] Comment on above: Order Comment: Reaso [...] at L1-L2 and L4-L5. Invalid Interpretation Code [employer] [facility] CT Abdomen Pelvis With IV Contrast Only Interface, Rad In [facility] [employer] - 05/14/2017 4:10 PM EST EXAMINATION: [...] in the left lower pelvis. Workstation ID: [id number] Invalid Interpretation Code [employer] [facility] CT Abdomen Pelvis With IV [...] in the left lower pelvis. Workstation ID: [id number] Invalid Interpretation Code [employer] [facility] [place] Topon 05-14-2017 Extra Tube Hold for add-ons. Invalid Interpretation Code [facility] Hepatic Function Panel (LFT) on 05-14-2017 Alanine aminotransferase (ALT) 13 U/L Invalid Interpretation Code 0 - 40 U/L [facility] Albumin 4.8 g/dL Invalid Interpretation Code 3.2 - 5.2 g/dL [facility] Alkaline phosphatase (ALP) 102 U/L Invalid Interpretation Code 40 - 150 U/L [facility] Aspartate aminotransferase (AST) 20 U/L Invalid Interpretation Code 0 - 45 U/L [facility] Bilirubin (conjugated) mg/dL Invalid Interpretation Code 0 - 0.4 mg/dL [facility] Bilirubin (total) 0.2 mg/dL Invalid Interpretation Code 0 - 1.3 mg/dL [facility] Interpretation and review of laboratory results Normal Invalid Interpretation Code [facility] Protein 7.9 g/dL Invalid Interpretation Code 6 - 8 g/dL [facility] Lipaseon 05-14-2017 Lipase 137 U/L High 15 - 65 U/L [facility] [place] Topon 05-14-2017 [place] Top Invalid Interpretation Code [facility] [place] Draw[place] 05-14-2017 Creatinine The following orders were created for panel order [place] Draw. Procedure Abnormality Status --------- ------ Gold Top[[id number]] Final result Light Blue Top[[id number]] Final result Ruff Top[[id number]] Final result [place] Top[[id number]] Final result Please view results for these tests on the individual orders. Invalid Interpretation Code [facility] Urinalysison 05-14-2017 Bilirubin, Urine Negative Invalid Interpretation Code Negative [facility] Blood, Urine Negative Invalid Interpretation Code Negative [facility] Interpretation and review of laboratory results Abnormal Invalid Interpretation Code [facility] Mucus, Urine Rare Invalid Interpretation Code None Seen, Rare /lpf [facility] Nitrite, Urine Negative Invalid Interpretation Code Negative [facility] RBCs, Urine 2 /hpf Invalid Interpretation Code 0 - 3 [facility] Squamous Epithelial 3 /hpf Invalid Interpretation Code 0 - 4 [facility] Urine, bacteria in sediment Rare Abnormal None Seen /hpf [facility] Urine, clarity Clear Invalid Interpretation Code Clear [facility] Urine, color Yellow Invalid Interpretation Code Colorless, Yellow [facility] Urine, glucose presence Negative Invalid Interpretation Code Negative mg/dL [facility] Urine, ketones presence Negative Invalid Interpretation Code Negative mg/dL [facility] Urine, leukocyte esterase presence Negative Invalid Interpretation Code Negative [facility] Urine, pH 5.0 [pH] Invalid Interpretation Code 5.0 - 7.0 [facility] Urine, protein Negative Invalid Interpretation Code Negative mg/dL [facility] Urine, specific gravity 1.006 1 Invalid Interpretation Code 1.005 - 1.025 [facility] Urine, urobilinogen <2.0 Invalid Interpretation Code <2.0 mg/dL [facility] WBCs, Urine 1 /hpf Invalid Interpretation Code 0 - 5 [facility] Urinalysis Microscopic examinat ion is performed on all urinalysis samples and only positive findings are reported. The test for blood on the chemical analytic portion of urinalysis may also be positive due to hemoglobinuria and myoglobinuria and if red blood cells are present they are quantified by microscopic examination. Invalid Interpretation Code [facility] Vital Signs Date Time Vital Sign Value Performing Clinician Facility 10-28-2024 16:50-0400 Diastolic blood pressure 83 mm[Hg] [facility] 10-28-2024 16:50-0400 Heart rate 81 /min [facility] 10-28-2024 16:50-0400 Respiratory rate 20 /min [facility] 10-28-2024 16:50-0400 SaO2% (BldA) [Mass fraction] 99 % [facility] 10-28-2024 16:50-0400 Systolic blood pressure 135 mm[Hg] [facility] 10-28-2024 14:33-0400 Body height 157.48 cm [facility] 10-28-2024 14:33-0400 Body temperature 98.3 [degF] [facility] 10-28-2024 14:33-0400 Body weight 54.3 kg [facility] 10-19-2024 22:50-0400 Body temperature 97.9 [degF] [facility] 10-19-2024 22:50-0400 Diastolic blood pressure 74 mm[Hg] [facility] 10-19-2024 22:50-0400 Heart rate 81 /min [facility] 10-19-2024 22:50-0400 Respiratory rate 18 /min [facility] 10-19-2024 22:50-0400 SaO2% (BldA) [Mass fraction] 99 % [facility] 10-19-2024 22:50-0400 Systolic blood pressure 140 mm[Hg] [facility] 10-19-2024 16:47-0400 Body height 157.48 cm [facility] 10-19-2024 16:47-0400 Body weight 55.2 kg [facility] 09-27-2024 14:00-0400 Diastolic blood pressure 71 mm[Hg] Tasha Zamora MD Work Phone: [employer] 09-27-2024 14:00-0400 Heart rate 93 /min Tasha Zamora MD Work Phone: [employer] 09-27-2024 14:00-0400 Respiratory rate 17 /min Tasha Zamora MD Work Phone: [employer] 09-27-2024 14:00-0400 SaO2% (BldA) [Mass fraction] 97 % Tasha Zamora MD Work Phone: [employer] 09-27-2024 14:00-0400 Systolic blood pressure 129 mm[Hg] Tasha Zamora MD Work Phone: [employer] 09-27-2024 10:48-0400 Body temperature 99 [degF] Tasha Zamora MD Work Phone: [employer] 09-20-2024 21:30-0400 Diastolic blood pressure 80 mm[Hg] Tasha Zamora MD Work Phone: [employer] 09-20-2024 21:30-0400 Heart rate 77 /min Tasha Zamora MD Work Phone: [employer] 09-20-2024 21:30-0400 Respiratory rate 18 /min Tasha Zamora MD Work Phone: [employer] 09-20-2024 21:30-0400 SaO2% (BldA) [Mass fraction] 97 % Tasha Zamora MD Work Phone: [employer] 09-20-2024 21:30-0400 Systolic blood pressure 119 mm[Hg] Tasha Zamora MD Work Phone: [employer] 09-20-2024 18:13-0400 Body height 157.5 cm Tasha Zamora MD Work Phone: [employer] 09-20-2024 18:13-0400 Body mass index (BMI) [Ratio] 22.86 kg/m2 Tasha Zamora MD Work Phone: [employer] 09-20-2024 18:13-0400 Body temperature 98.1 [degF] Tasha Zamora MD Work Phone: [employer] 09-20-2024 18:13-0400 Body weight 56.7 kg Tasha Zamora MD Work Phone: [employer] 08-08-2024 19:32-0400 Diastolic blood pressure 62 mm[Hg] [employer] 08-08-2024 19:32-0400 SaO2% (BldA) [Mass fraction] 98 % [employer] 08-08-2024 19:32-0400 Systolic blood pressure 135 mm[Hg] [employer] [facility] 08-08-2024 17:51-0400 Body height 157.5 cm [employer] 08-08-2024 17:51-0400 Body mass index (BMI) [Ratio] 22.86 kg/m2 [facility] [employer] 08-08-2024 17:51-0400 Body temperature 98.29 [degF] [facility] [employer] 08-08-2024 17:51-0400 Body weight 56.7 kg [facility] [employer] 08-08-2024 17:51-0400 Heart rate 86 /min [facility] [employer] 08-08-2024 17:51-0400 Respiratory rate 20 /min [facility] [employer] 04-07-2024 16:14-0500 Heart rate 93 /min Peter Escalera MD Work Phone: [facility] [employer] 04-07-2024 16:14-0500 SaO2% (BldA) [Mass fraction] 100 % Peter Escalera MD Work Phone: [facility] [employer] 04-07-2024 13:10-0500 Body height 157.5 cm Peter Escalera MD Work Phone: [facility] [employer] 04-07-2024 13:10-0500 Body mass index (BMI) [Ratio] 22.86 kg/m2 Peter Escalera MD Work Phone: [facility] [employer] 04-07-2024 13:10-0500 Body temperature 97.9 [degF] Peter Escalera MD Work Phone: [facility] [employer] 04-07-2024 13:10-0500 Body weight 56.7 kg Peter Escalera MD Work Phone: [facility] [employer] 04-07-2024 13:10-0500 Diastolic blood pressure 88 mm[Hg] Peter Escalera MD Work Phone: [facility] [employer] 04-07-2024 13:10-0500 Respiratory rate 16 /min Peter Escalera MD Work Phone: [facility] [employer] 04-07-2024 13:10-0500 Systolic blood pressure 139 mm[Hg] Peter Escalera MD Work Phone: [facility] 01-19-2024 11:30-0500 Diastolic blood pressure 63 mm[Hg] Sabrina Dee MD, MPH Work Phone: [facility] 01-19-2024 11:30-0500 Heart rate 73 /min Sabrina Dee MD, MPH Work Phone: [facility] 01-19-2024 11:30-0500 Respiratory rate 18 /min Sabrina Dee MD, MPH Work Phone: [facility] 01-19-2024 11:30-0500 SaO2% (BldA) [Mass fraction] 99 % Sabrina Dee MD, MPH Work Phone: [facility] 01-19-2024 11:30-0500 Systolic blood pressure 120 mm[Hg] Sabrina Dee MD, MPH Work Phone: [facility] 01-19-2024 09:54-0500 Body temperature 98.01 [degF] Sabrina Dee MD, MPH Work Phone: [facility] 01-07-2024 16:13-0400 Diastolic blood pressure 41 mm[Hg] [facility] [employer] 01-07-2024 16:13-0400 Heart rate 82 /min [facility] [employer] 01-07-2024 16:13-0400 Respiratory rate 15 /min [facility] [employer] 01-07-2024 16:13-0400 Systolic blood pressure 127 mm[Hg] [facility] [employer] 01-07-2024 14:14-0400 Body height 157.5 cm [facility] [employer] 01-07-2024 14:14-0400 Body mass index (BMI) [Ratio] 21.95 kg/m2 [facility] [employer] 01-07-2024 14:14-0400 Body temperature 98.1 [degF] [facility] [employer] 01-07-2024 14:14-0400 Body weight 54.43 kg [facility] [employer] 01-07-2024 14:14-0400 SaO2% (BldA) [Mass fraction] 99 % [facility] [employer] 09-29-2023 21:39-0400 Heart rate 102 /min [facility] [employer] 09-29-2023 21:29-0400 SaO2% (BldA) [Mass fraction] 96 % [facility] [employer] 09-29-2023 20:32-0400 Diastolic blood pressure 94 mm[Hg] [facility] 09-29-2023 20:32-0400 Systolic blood pressure 124 mm[Hg] [facility] 09-29-2023 18:57-0400 Body height 157.5 cm [facility] 09-29-2023 18:57-0400 Body mass index (BMI) [Ratio] 22.86 kg/m2 [facility] 09-29-2023 18:57-0400 Body temperature 98.1 [degF] [facility] [employer] 09-29-2023 18:57-0400 Body weight 56.7 kg [facility] 09-29-2023 18:57-0400 Respiratory rate 18 /min [facility] 09-08-2023 09:00-0400 Diastolic blood pressure 54 mm[Hg] Sabrina Dee MD, MPH Work Phone: [facility] 09-08-2023 09:00-0400 Heart rate 83 /min Sabrina Dee MD, MPH Work Phone: [facility] 09-08-2023 09:00-0400 Respiratory rate 13 /min Sabrina Dee MD, MPH Work Phone: [facility] 09-08-2023 09:00-0400 SaO2% (BldA) [Mass fraction] 95 % Sabrina Dee MD, MPH Work Phone: [facility] 09-08-2023 09:00-0400 Systolic blood pressure 94 mm[Hg] Sabrina Dee MD, MPH Work Phone: [facility] 09-08-2023 08:04-0400 Body temperature 97.7 [degF] Sabrina Dee MD, MPH Work Phone: [facility] 09-08-2023 06:43-0400 Body height 157.5 cm Sabrina Dee MD, MPH Work Phone: [facility] 05-11-2023 09:01-0500 Body height 157.5 cm Sabrina Dee MD, MPH Work Phone: [facility] 05-11-2023 09:01-0500 Body mass index (BMI) [Ratio] 21 kg/m2 Sabrina Dee MD, MPH Work Phone: [facility] 05-11-2023 09:01-0500 Body weight 52.07 kg Sabrina Dee MD, MPH Work Phone: [facility] 05-11-2023 09:01-0500 Diastolic blood pressure 48 mm[Hg] Sabrina Dee MD, MPH Work Phone: [facility] 05-11-2023 09:01-0500 Heart rate 107 /min Sabrina Dee MD, MPH Work Phone: [facility] 05-11-2023 09:01-0500 SaO2% (BldA) [Mass fraction] 97 % Sabrina Dee MD, MPH Work Phone: [facility] 05-11-2023 09:01-0500 Systolic blood pressure 110 mm[Hg] Sabrina Dee MD, MPH Work Phone: [facility] 04-18-2023 17:39-0500 Diastolic blood pressure 79 mm[Hg] [facility] 04-18-2023 17:39-0500 Heart rate 114 /min [facility] 04-18-2023 17:39-0500 Respiratory rate 16 /min [facility] 04-18-2023 17:39-0500 SaO2% (BldA) [Mass fraction] 98 % [facility] 04-18-2023 17:39-0500 Systolic blood pressure 168 mm[Hg] [facility] 04-18-2023 15:29-0500 Body height 157.48 cm [facility] 04-18-2023 15:29-0500 Body temperature 99.3 [degF] [facility] 04-18-2023 15:29-0500 Body weight 51.25 kg [facility] 04-11-2023 23:50-0500 Diastolic blood pressure 82 mm[Hg] [facility] 04-11-2023 23:50-0500 Heart rate 106 /min [facility] 04-11-2023 23:50-0500 SaO2% (BldA) [Mass fraction] 97 % [facility] 04-11-2023 23:50-0500 Systolic blood pressure 151 mm[Hg] [facility] 04-11-2023 22:25-0500 Respiratory rate 18 /min [facility] 04-11-2023 21:20-0500 Body height 157.48 cm [facility] 04-11-2023 21:20-0500 Body temperature 97.2 [degF] [facility] 04-11-2023 21:20-0500 Body weight 52 kg [facility] 04-02-2023 19:20-0500 Diastolic blood pressure 74 mm[Hg] [facility] 04-02-2023 19:20-0500 Heart rate 91 /min [facility] 04-02-2023 19:20-0500 Respiratory rate 18 /min [facility] 04-02-2023 19:20-0500 SaO2% (BldA) [Mass fraction] 96 % [facility] 04-02-2023 19:20-0500 Systolic blood pressure 137 mm[Hg] [facility] 04-02-2023 13:45-0500 Body height 157.48 cm [facility] 04-02-2023 13:45-0500 Body temperature 97.6 [degF] [facility] 04-02-2023 13:45-0500 Body weight 54 kg [facility] 11-09-2022 16:30-0400 Diastolic blood pressure 81 mm[Hg] [facility] 11-09-2022 16:30-0400 Heart rate 78 /min [facility] 11-09-2022 16:30-0400 Respiratory rate 18 /min [facility] 11-09-2022 16:30-0400 SaO2% (BldA) [Mass fraction] 99 % [facility] 11-09-2022 16:30-0400 Systolic blood pressure 141 mm[Hg] [facility] 11-09-2022 13:47-0400 Body height 160.02 cm [facility] 11-09-2022 13:47-0400 Body temperature 98.2 [degF] [facility] 11-09-2022 13:47-0400 Body weight 54.2 kg [facility] 08-12-2022 13:15-0400 Diastolic blood pressure 68 mm[Hg] Sabrina Dee MD, MPH Work Phone: [facility] 08-12-2022 13:15-0400 Heart rate 67 /min Sabrina Dee MD, MPH Work Phone: [facility] 08-12-2022 13:15-0400 Respiratory rate 22 /min Sabrina Dee MD, MPH Work Phone: [facility] 08-12-2022 13:15-0400 SaO2% (BldA) [Mass fraction] 99 % Sabrina Dee MD, MPH Work Phone: [facility] 08-12-2022 13:15-0400 Systolic blood pressure 142 mm[Hg] Sabrina Dee MD, MPH Work Phone: [facility] 08-12-2022 11:45-0400 Body temperature 97.81 [degF] Sabrina Dee MD, MPH Work Phone: [facility] 08-12-2022 10:34-0400 Body height 157.5 cm Sabrina Dee MD, MPH Work Phone: [phone] [address] 06-16-2022 10:52-0400 Body mass index (BMI) [Ratio] 23.41 kg/m2 Sabrina Dee MD, MPH Work Phone: [phone] [address] 06-16-2022 10:52-0400 Body weight 58.06 kg Sabrina Dee MD, MPH Work Phone: 4([phone] [address] 06-16-2022 10:52-0400 Diastolic blood pressure 68 mm[Hg] Sabrina Dee MD, MPH Work Phone: 3([phone] [address] 06-16-2022 10:52-0400 Heart rate 83 /min Sabrina Dee MD, MPH Work Phone: [facility] 06-16-2022 10:52-0400 SaO2% (BldA) [Mass fraction] 98 % Sabrina Dee MD, MPH Work Phone: 1(646)[phone] [address] 06-16-2022 10:52-0400 Systolic blood pressure 122 mm[Hg] Sabrina Dee MD, MPH Work Phone: [phone] [address] 03-22-2022 16:51-0500 Diastolic blood pressure 61 mm[Hg] [facility] 03-22-2022 16:51-0500 Heart rate 98 /min [facility] 03-22-2022 16:51-0500 Respiratory rate 20 /min [facility] 03-22-2022 16:51-0500 SaO2% (BldA) [Mass fraction] 98 % [facility] 03-22-2022 16:51-0500 Systolic blood pressure 149 mm[Hg] [facility] 03-22-2022 14:59-0500 Body height 157.48 cm [facility] 03-22-2022 14:59-0500 Body temperature 97.9 [degF] [facility] 03-22-2022 14:59-0500 Body weight 56 kg [facility] 12-16-2021 11:53-0400 Body height 157.5 cm Sabrina Dee MD, MPH Work Phone: [facility] 12-16-2021 11:53-0400 Body mass index (BMI) [Ratio] 22.5 kg/m2 Sabrina Dee MD, MPH Work Phone: [facility] 12-16-2021 11:53-0400 Body weight 55.79 kg Sabrina Dee MD, MPH Work Phone: [facility] 12-16-2021 11:53-0400 Diastolic blood pressure 72 mm[Hg] Sabrina Dee MD, MPH Work Phone: [facility] 12-16-2021 11:53-0400 Heart rate 80 /min Sabrina Dee MD, MPH Work Phone: [facility] 12-16-2021 11:53-0400 SaO2% (BldA) [Mass fraction] 98 % Sabrina Dee MD, MPH Work Phone: [facility] 12-16-2021 11:53-0400 Systolic blood pressure 118 mm[Hg] Sabrina Dee MD, MPH Work Phone: [facility] 10-09-2021 20:00-0400 Body temperature 98.3 [degF] [facility] 10-09-2021 20:00-0400 Diastolic blood pressure 68 mm[Hg] [facility] 10-09-2021 20:00-0400 Heart rate 86 /min [facility] 10-09-2021 20:00-0400 Respiratory rate 20 /min [facility] 10-09-2021 20:00-0400 SaO2% (BldA) [Mass fraction] 100 % [facility] 10-09-2021 20:00-0400 Systolic blood pressure 110 mm[Hg] [facility] 10-09-2021 14:19-0400 Body height 157.48 cm [facility] 10-09-2021 14:19-0400 Body weight 56.69 kg [facility] 10-04-2021 19:00-0400 Diastolic blood pressure 66 mm[Hg] [facility] 10-04-2021 19:00-0400 Heart rate 72 /min [facility] 10-04-2021 19:00-0400 Respiratory rate 16 /min [facility] 10-04-2021 19:00-0400 SaO2% (BldA) [Mass fraction] 96 % [facility] 10-04-2021 19:00-0400 Systolic blood pressure 110 mm[Hg] [facility] 10-04-2021 15:16-0400 Body temperature 97.9 [degF] [facility] 10-04-2021 15:15-0400 Body height 157.48 cm [facility] 10-04-2021 15:15-0400 Body weight 54.5 kg [facility] 09-25-2021 19:58-0400 Heart rate 82 /min [facility] 09-25-2021 18:04-0400 Body temperature 98.1 [degF] [facility] 09-25-2021 18:00-0400 Body height 157.48 cm [facility] 09-25-2021 18:00-0400 Body weight 55.5 kg [facility] 09-25-2021 18:00-0400 Diastolic blood pressure 107 mm[Hg] [facility] 09-25-2021 18:00-0400 Respiratory rate 18 /min [facility] 09-25-2021 18:00-0400 SaO2% (BldA) [Mass fraction] 98 % [facility] 09-25-2021 18:00-0400 Systolic blood pressure 141 mm[Hg] [facility] 08-11-2021 18:12-0400 Heart rate 86 /min [facility] 08-11-2021 18:00-0400 Diastolic blood pressure 69 mm[Hg] [facility] 08-11-2021 18:00-0400 Respiratory rate 20 /min [facility] 08-11-2021 18:00-0400 SaO2% (BldA) [Mass fraction] 98 % [facility] 08-11-2021 18:00-0400 Systolic blood pressure 114 mm[Hg] [facility] 08-11-2021 16:06-0400 Body height 170.18 cm [facility] 08-11-2021 16:06-0400 Body mass index (BMI) [Ratio] 19.6 kg/m2 [facility] 08-11-2021 16:06-0400 Body temperature 97.9 [degF] [facility] 08-11-2021 16:06-0400 Body weight 57 kg [facility] 03-19-2021 14:30-0500 Body height 157.48 cm Marya Ginty Other [employer] [facility] [employer] Other 03-19-2021 14:30-0500 Body mass index (BMI) [Ratio] 24.69 kg/m2 Marya Ginty Other [employer] [facility] [employer] Other 03-19-2021 14:30-0500 Body temperature 96 [degF] Marya Ginty Other [employer] [facility] [employer] Other 03-19-2021 14:30-0500 Body weight 61.24 kg Marya Ginty Other [employer] Other 03-19-2021 14:30-0500 Respiratory rate 63 /min Marya Almonte Other [employer] Other 03-19-2021 14:30-0500 SaO2% (BldA) [Mass fraction] 97 % Marya Gillana Other [employer] Other 03-26-2020 21:05-0500 Pulse Oximetry 100 % [facility] [place] 03-26-2020 21:01-0500 BP Diastolic 68 mm[Hg] [facility] [place] 03-26-2020 21:01-0500 BP Systolic 152 mm[Hg] [place], [place] 03-26-2020 17:32-0500 BMI (Body Mass Index) 22.86 kg/m2 [place], [place] 03-26-2020 17:32-0500 Body weight 56.7 kg [place] 03-26-2020 17:32-0500 Height 157.5 cm [place] 03-26-2020 17:32-0500 Pulse (Heart Rate) 90 /min [facility] [place] 03-26-2020 17:32-0500 Respiratory Rate 18 /min [facility] [place] 03-26-2020 12:39-0500 Body Temperature 98.71 [degF] [facility] [place] 08-25-2019 08:30-0400 Body Temperature 98.01 [degF] [facility] [place] 08-25-2019 08:30-0400 BP Diastolic 75 mm[Hg] [facility] [place] 08-25-2019 08:30-0400 BP Systolic 117 mm[Hg] [facility] [place] 08-25-2019 08:30-0400 Pulse (Heart Rate) 84 /min Rajeev Cantor [facility] [place] 08-25-2019 08:30-0400 Pulse Oximetry 97 % [facility] [place] 08-25-2019 08:30-0400 Respiratory Rate 16 /min [facility] [place] [place] 08-25-2019 05:30-0400 BMI (Body Mass Index) 25.88 kg/m2 Rajeev Sakshi [facility], [place] 08-25-2019 05:30-0400 Body weight 64.18 kg Rajeev Cantor [facility] [place] 08-22-2019 16:00-0400 Height 157.5 cm Rajeev Sakshi [place] 03-04-2018 13:09-0500 BP Diastolic 69 mm[Hg] [facility] [place] 03-04-2018 13:09-0500 BP Systolic 108 mm[Hg] [facility] [place] 03-04-2018 13:09-0500 Pulse (Heart Rate) 79 /min [facility] [place] 03-04-2018 13:09-0500 Pulse Oximetry 99 % [facility] [place] 03-04-2018 13:09-0500 Respiratory Rate 16 /min [facility] [place] 03-04-2018 11:01-0500 BMI (Body Mass Index) 22.86 kg/m2 [facility] [place] 03-04-2018 11:01-0500 Body Temperature 98.6 [degF] [facility] [place] 03-04-2018 11:01-0500 Height 157.5 cm [facility] [place] 03-04-2018 11:01-0500 Weight 56.7 kg [facility] [place] 08-24-2017 20:58-0400 BP Diastolic 64 mm[Hg] [facility] 08-24-2017 20:58-0400 BP Systolic 126 mm[Hg] [facility] 08-24-2017 20:58-0400 Pulse (Heart Rate) 67 /min [facility] 08-24-2017 20:58-0400 Pulse Oximetry 98 % [facility] 08-24-2017 20:58-0400 Respiratory Rate 18 /min [facility] 08-24-2017 13:41-0400 BMI (Body Mass Index) 21.58 kg/m2 [facility] 08-24-2017 13:41-0400 Body Temperature 98.29 [degF] [facility] 08-24-2017 13:41-0400 [facility] 08-24-2017 13:41-0400 Weight 53.52 kg Errol Walton [facility] 06-09-2017 09:32-0400 BP [facility] 73 mm[facility]Hg[facility] 06-09-2017 09:32-0400 BP Systolic 106 mm[Hg] [facility] 06-09-2017 09:32-0400 Pulse (Heart Rate) 86 /min [facility] 06-09-2017 09:32-0400 Pulse Oximetry 99 % [facility] 06-09-2017 09:32-0400 Respiratory Rate 16 /min [facility] 06-09-2017 07:20-0400 BMI (Body Mass Index) 21.87 kg/m2 [facility] 06-09-2017 07:20-0400 Body Temperature 98.4 [degF] [facility] 06-09-2017 07:20-0400 Height 157.5 cm [facility] 06-09-2017 07:20-0400 Weight 54.23 kg [facility] 05-15-2017 08:11-0500 Body Temperature 98.01 [degF] David Gibson [facility] 05-15-2017 08:11-0500 BP Diastolic 69 mm[Hg] David Gibson [facility] 05-15-2017 08:11-0500 BP Systolic 116 mm[Hg] David Paige [facility] 05-15-2017 08:11-0500 Pulse (Heart Rate) 76 /min David Paige [facility] 05-15-2017 08:11-0500 Pulse Oximetry 95 % David Gibson [facility] 05-15-2017 08:11-0500 Respiratory Rate 15 /min David Gibson [facility] 05-14-2017 12:58-0500 BMI (Body Mass Index) 21.95 kg/m2 David Gibson [facility] 05-14-2017 12:58-0500 Height 157.5 cm David Gibson [facility] 05-14-2017 12:58-0500 Weight 54.43 kg David Gibson [facility] Encounters Encounter Date Encounter Type Care Provider Facility Start: 10-28-2024 End: 10-28-2024 Emergency department patient visit -Emergency Room Work Phone: Start: 10-26-2024 End: 10-26-2024 Emergency department patient visit [facility] Start: 10-24-2024 End: 10-24-2024 Emergency department patient visit Darrel Ferrer Facility:[facility] Start: 10-19-2024 End: 10-19-2024 Emergency department patient visit -Emergency Room Work Phone: Start: 10-11-2024 End: 10-11-2024 Emergency department patient visit [facility] Start: 10-09-2024 End: 10-09-2024 Emergency department patient visit Ish Stkoes [facility] [facility] Start: 10-03-2024 End: 10-03-2024 Emergency department patient visit Darrel Ferrer Facility:[facility] Start: 09-27-2024 End: 09-27-2024 Emergency department patient visit Tasha Zamora MD Work Phone: [facility] Emergency Department Comment on above: Abdominal pain, epig astric (Primary Dx); Nausea and vomiting, unspecified vomiting type Start: 09-20-2024 End: 09-20-2024 Emergency department patient visit Tasha Zamora MD Work Phone: [facility] Emergency Department Comment on above: Other chronic pancre atitis (HCC) (Primary Dx) Start: 09-18-2024 End: 09-19-2024 Emergency department patient visit [facility] Start: 09-05-2024 End: 09-05-2024 Emergency department patient visit [facility] Start: 08-10-2024 End: 08-10-2024 Emergency department patient visit [facility] Start: 08-08-2024 End: 08-08-2024 Emergency department patient visit [facility] Emergency Department Comment on above: Abdominal pain, epig astric (Primary Dx) Start: 07-20-2024 End: 07-21-2024 Emergency department patient visit [facility] Start: 06-27-2024 End: 06-27-2024 Emergency department patient visit [facility] Start: 06-15-2024 End: 06-15-2024 Emergency department patient visit [facility] Start: 05-31-2024 End: 05-31-2024 Emergency department patient visit [facility] Start: 04-07-2024 End: 04-07-2024 Emergency department patient visit Peter Escalera MD Work Phone: [facility] Emergency Department Comment on above: Acute pancreatitis w ithout infection or necrosis, unspecified pancreatitis type (Primary Dx); Acute recurrent pancreatitis Start: 03-18-2024 End: 03-18-2024 Emergency department patient visit [facility] Start: 01-19-2024 ambulatory SABRINA hamilton:[facility] Start: 01-19-2024 End: 01-19-2024 Subsequent hospital visit by physician Sabrina Dee MD, MPH Work Phone: [facility] Start: 01-14-2024 End: 01-14-2024 Emergency department patient visit [facility] Start: 01-07-2024 End: 01-07-2024 Emergency department patient visit [facility] ED Comment on above: Acute on chronic see creatitis (HCC) (Primary Dx); Abdominal pain, epigastric Start: 12-29-2023 End: 12-29-2023 Emergency department patient visit [facility] Start: 09-29-2023 End: 09-29-2023 Emergency department patient visit [facility] ED Comment on above: Hypokalemia (Primary Dx); Acute recurrent pancreatitis Start: 09-08-2023 End: 09-08-2023 Subsequent hospital visit by physician Sabrina Dee MD, MPH Work Phone: [facility] Start: 09-08-2023 ambulatory SABRINA jones:[facility] Start: 05-22-2023 Telephone encounter [facility] Portillo C[facility] Start: 05-11-2023 Chart abstracting Scanning Pro vider External [facility] Start: 05-11-2023 End: 05-11-2023 Office outpatient visit 40 minutes Sabrina Dee MD, MPH Work Phone: [facility] [place] Comment on above: 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); Encounter for screening for malignant neoplasm of colon; Other osteoporosis without current pathological fracture; Epigastric pain; Smoking; Gastroesophageal reflux disease without esophagitis Start: 05-11-2023 ambulatory SABRINA DEE Fa cility:[facility] Start: 04-18-2023 End: 04-18-2023 Emergency department patient visit [facility] Work Phone: Start: 04-16-2023 Telephone encounter [facility] Start: 04-11-2023 End: 04-12-2023 Emergency department patient visit [facility] Work Phone: Start: 04-02-2023 End: 04-02-2023 Emergency department patient visit [facility] Work Phone: Start: 11-09-2022 End: 11-09-2022 Emergency department patient visit [facility] Work Phone: Start: 08-12-2022 End: 08-12-2022 Subsequent hospital visit by physician Sabrina Dee MD, MPH Work Phone: [facility] Start: 06-16-2022 End: 06-16-2022 Office outpatient visit 40 minutes Sabrina Dee MD, MPH Work Phone: [facility] [place] Comment on above: Osteoporosis without current pathological fracture, unspecified osteoporosis type (Primary Dx); Alcohol-induced chronic pancreatitis Start: 06-13-2022 End: 06-13-2022 ambulatory ARIC ARCINIEGA . Facility:[facility] Start: 03-29-2022 End: 03-29-2022 ambulatory ELENITA ROLLINS . Facility:[facility] Start: 03-22-2022 End: 03-22-2022 Emergency department patient visit [facility] Work Phone: Start: 03-19-2022 End: 03-19-2022 ambulatory MONIK PARKINSON . Facility:[facility] Start: 01-28-2022 End: 01-28-2022 Subsequent hospital visit by physician Sabrina Dee MD, MPH Work Phone: [facility] Start: 01-27-2022 End: 01-27-2022 Subsequent hospital visit by physician Sabrina Dee MD, MPH Work Phone: [facility] [place] Comment on above: Arrived Start: 01-15-2022 End: 01-15-[address] CRUZITO KITCHEN . Facility:[facility] Start: 12-16-2021 End: 12-16-2021 Office outpatient visit 25 minutes Sabrina Dee MD, MPH Work Phone: [facility] [place] Comment on above: Recurrent acute panc reatitis (Primary Dx); History of smoking 25-50 pack years; Alcohol-induced chronic pancreatitis; Epigastric pain; Encounter for screening colonoscopy Start: 12-13-2021 End: 12-14-2021 ambulatory NICK COY Facility:[facility] Start: 12-05-2021 End: 12-05-[address] RAJEEV KELLOGG Facility:[facility] Start: 10-11-2021 End: 10-12-[address] RAJEEV KELLOGG Facility:[facility] Start: 10-04-2021 End: 10-04-2021 Emergency department patient visit [facility] Start: 09-30-2021 End: 09-30-2021 ambulatory NAT MAXWELL . Facility:[facility] Start: 09-25-2021 End: 09-25-2021 Emergency department patient visit [facility] Start: 09-17-2021 End: 09-17-[address] RAJEEV KELLOGG Facility:[facility] Start: 08-26-2021 End: 08-26-2021 ambulatory NICK COY Facility:[facility] Start: 08-22-2021 End: 08-22-[address] TRI HANSON Facility:[facility] Start: 08-13-2021 End: 08-13-2021 ambulatory AGUSTIN MADRIGAL Facility:[facility] Start: 08-11-2021 End: 08-11-2021 Emergency department patient visit [facility] Start: 07-31-2021 End: 07-31-2021 ambulatory YANNI Merrill BRIA Facility:[facility] Start: 07-19-2021 End: 07-19-2021 ambulatory LYNNE PERDOMO Facility:[facility] Start: 03-19-2021 End: 03-19-2021 ambulatory Marya Almonte Other [employer] Other Start: 03-19-2021 Office outpatient visit 15 minutes Marya Almonte [facility] Start: 05-22-2020 End: 05-22-2020 Orders Only Izabela Grant Work Phone: [facility] Start: 03-26-2020 End: 03-26-2020 Emergency department patient visit [facility] ED Comment on above: Acute biliary pancre atitis, unspecified complication status (Primary Dx) Start: 08-22-2019 End: 08-25-2019 Evaluation and management of inpatient Rajeev Cantor Work Phone: [facility] Comment on above: Acute pancreatitis, unspecified complication status, unspecified pancreatitis type (Primary Dx); Pain of upper abdomen Start: 03-08-2018 End: 03-09-2018 Evaluation and management of inpatient [facility] Start: 03-04-2018 End: 03-04-2018 Patient encounter procedure [facility] Start: 03-04-2018 End: 03-04-2018 Emergency department patient visit Keerthi Nguyen Work Phone: [facility] Emergency Department Comment on above: Acute on chronic see creatitis (HCC) (Primary Dx) Start: 08-24-2017 End: 08-24-2017 Emergency department patient visit [facility] Start: 08-24-2017 End: 08-24-2017 Emergency department patient visit Errol Walton Work Phone: [facility] Start: 06-09-2017 End: 06-09-2017 Emergency department patient visit [facility] Start: 06-09-2017 End: 06-09-2017 Emergency department patient visit Joana Mendes Work Phone: [facility] Start: 05-14-2017 End: 05-15-2017 Patient encounter procedure ALEXANDER NICHOLS [facility] Start: 05-14-2017 End: 05-15-2017 Emergency department patient visit David Gibson Work Phone: [facility] Medical Observation Procedures Date Procedure Procedure Detail Performing Clinician Start: 10-28-2024 Computed tomography of abdomen and pelvis with contrast Start: 10-19-2024 Computed tomography of abdomen and pelvis with contrast Start: 09-27-2024 Comprehensive metabo lic panel Tasha Zamora MD Work Phone: Start: 09-20-2024 Comprehensive metabo lic panel Tasha Zamora MD Work Phone: Start: 09-20-2024 Urnls dip stick/tabl et reagent auto microscopy Tasha Zamora MD Work Phone: Start: 08-08-2024 Urinalysis microscop ic only Ion Car PA-C Work Phone: Start: 08-08-2024 Urnls dip stick/tabl et rgnt auto w/o microscopy Ion Car PA-C Work Phone: Start: 08-08-2024 Comprehensive metabo lic panel Ion Car PA-C Work Phone: Start: 04-07-2024 Urnls dip stick/tabl et rgnt [...] Urnls dip stick/tabl et reagent auto microscopy Tasha Zamora MD Work Phone: Start: 01-07-2024 Comprehensive metabo lic panel Tasha Zamora MD Work Phone: Start: 01-07-2024 Ecg routine ecg w/le ast 12 lds w/i&r Tasha Zamora MD Work Phone: Start: 09-29-2023 Urinalysis microscop ic only Kerrie PHAM-Clara Work Phone: Start: 09-29-2023 Urnls dip stick/tabl et rgnt auto w/o microscopy Kerrie Kincaid PA-Clara Work Phone: Start: 09-29-2023 Comprehensive metabo lic panel Kerrie PHAM-Clara Work Phone: Start: 09-08-2023 UPPER EUS Sabrina [...] Start: 03-04-2018 End: 03-04-2018 Urinalysis Konstantin Morris camille Work Phone: Start: 03-04-2018 End: 03-04-2018 Basic [...] RAINBOW DRAW Keerthi Nguyen Work Phone: Start: 07-20-2018 Lipid 1996 panel - S erika or Plasma Sabrina Dee MD, MPH Work Phone: Start: 01-02-2012 Mammography Izabela skinner Start: 12-11-2011 Microscopic observat ion [Identifier] in Cervix by Cyto stain Keerthi Nguyen Plan of Treatment Date Care Activity Detail Author Start: 10-07-2024 [facility] Start: 04-11-2024 Adult BMI Screening [facility] Start: 04-11-2024 Tobacco Screening Tobacco Screening [facility] Start: 02-22-2024 End: 02-22-2024 Patient encounter procedure 02/22/2024 9:30 AM EST Office Visit [facility] [address] [address] Sabrina Dee MD, MPH [address] [place] [address] [facility] [place] Start: 11-08-2023 COVID-19 Vaccine ( season) COVID-19 Vaccine ( season) [facility] Start: 11-08-2023 COVID-19 Vaccine ( season) COVID-19 Vaccine ( season) [facility] Start: 11-08-2023 COVID-19 VACCINE ( season) COVID-19 VACCINE ( season) [facility] Start: 11-08-2023 Influenza vaccination INFLUENZA VACCINE (#1) [facility] Start: 10-08-2023 Influenza vaccination Flu vaccine (#1) [facility] Start: 05-25-2023 End: 05-25-2023 Patient encounter procedure 05/25/2023 1:00 PM EDT Office Visit [facility] [address] [place] [address] Orlando Al MD [address] [place] [address] [facility] Start: 05-19-2023 End: 05-10-2024 UPPER EUS UPPER EUS GI/Bronch Routine Alcohol-induced chronic pancreatitis Expected: 05/19/2023, Expires: 05/10/2024 [facility] Comment on above: Expected: 05/19/2023, Expires: Start: 05-11-2023 End: 05-10-2024 VITAMIN D (25-HYDROXY,TOTAL) VITAMIN D (25-HYDROXY,TOTAL) Lab Routine Other osteoporosis without current pathological fracture Expected: 05/11/2023, Expires: 05/10/2024 [facility] Comment on above: Expected: 05/11/2023, Expires: Start: 04-11-2023 Computed tomography of abdomen and pelvis with contrast CT abdomen pelvis w con [facility] Start: 04-11-2023 CT Abdomen and Pelvis W contrast IV [facility] Start: 03-16-2023 End: 03-16-2023 Patient encounter procedure 03/16/2023 Office Visit Gastroenterology Sabrina Dee MD, MPH [address] [place] [address] [facility] [place] Start: 11-07-2022 COVID-19 VACCINE ( season) COVID-19 VACCINE () [facility] Start: 11-07-2022 Influenza vaccination [facility] Start: 09-25-2022 Lipid panel LIPID SCREENING [facility] Start: 07-29-2022 End: 06-17-2023 UPPER EUS UPPER EUS GI/Bronch Routine Alcohol-induced chronic pancreatitis Expected: 07/29/2022, Expires: 06/17/2023 [facility] Comment on above: Expected: 07/29/2022, Expires: Start: 07-28-2022 End: 01-28-2023 Screening colonoscopy SCREENING COLONOSCOPY GI/Bronch Routine Encounter for screening colonoscopy Expected: 07/28/2022, Expires: 01/28/2023 [facility] Comment on above: Expected: 07/28/2022, Expires: 3 Start: 07-28-2022 End: 07-28-2022 Patient encounter procedure 07/28/2022 Appointment Endoscopy Julia Tyler MD [address] [address] [facility] Start: 06-16-2022 End: 12-16-2022 Screening colonoscopy SCREENING COLONOSCOPY GI/Bronch Routine Encounter for screening colonoscopy Expected: 06/16/2022, Expires: 12/16/2022 [facility] Comment on above: Expected: 06/16/2022, Expires: 3 Start: 06-16-2022 End: 06-16-2022 Patient encounter procedure 06/16/2022 Office Visit Gastroenterology Sabrina Dee MD, MPH [address] [place] [address] [facility] [place] Start: 03-22-2022 Bacteria identified in Urine by Culture [facility] Start: 01-28-2022 End: 01-28-2022 Patient encounter procedure 01/28/2022 Appointment Endoscopy Sabrina Dee MD, MPH [address] [place] [id number] [facility] Start: 01-28-2022 Subsequent hospital visit by physician 01/28/2022 Hospital Encounter Endoscopy Sabrina Dee MD, MPH [address] [place] [id number] Arrived [facility] Comment on above: Arrived Start: 01-14-2022 End: 12-16-2022 UPPER EUS UPPER EUS GI/Bronch Routine Recurrent acute pancreatitis Expected: 01/14/2022, Expires: 12/16/2022 [facility] Comment on above: Expected: 01/14/2022, Expires: 3 Start: 12-16-2021 End: 12-16-2022 Bone density scan BONE DENSITY AXIAL (HIP, PELVIS, SPINE) Imaging Routine Recurrent acute pancreatitis History of smoking 25-50 pack years Expected: 12/16/2021, Expires: 12/16/2022 [facility] Comment on above: Expected: 12/16/2021, Expires: 3 Start: 11-07-2021 Influenza vaccination INFLUENZA VACCINE (#1) [facility] Start: 10-09-2021 CT of abdomen and pelvis without contrast CT abdomen pelvis [facility] Start: 10-09-2021 End: 10-09-2021 Emergency department patient visit Departed Emergency [facility] Start: 11-13-2020 COVID-19 VACCINE (3 - Booster for Pfizer series) COVID-19 VACCINE (3 - Booster for Pfizer series) [facility] Start: 11-08-2019 Influenza vaccination [place], [place] Start: 11-08-2019 Influenza vaccination given Sequential Influenza Vaccine (#1) [facility] Start: 06-21-2019 Administration of herpes zoster vaccine Zoster Vaccines (1 of 2) [facility] Start: 06-21-2019 Administration of varicella zoster vaccine Zoster (Shingles) Vaccine (1 of 2) [facility] Start: 06-21-2019 Screening for malignant neoplasm of breast Breast cancer screen [place], [place] Start: 06-21-2019 Screening for malignant neoplasm of colon [place] Start: 06-21-2019 Screening for malignant neoplasm of lung LUNG CANCER SCREENING [facility] Start: 06-21-2019 Shingles Vaccine (1 of 2) Shingles Vaccine (1 of 2) [facility] Start: 06-21-2019 Zoster vaccine hzv live for subcutaneous use ZOSTER (SHINGLES) VACCINE (1 of 2) [facility] Start: 11-07-2017 Influenza [facility] Start: 11-07-2016 Influenza vaccination SEQUENTIAL INFLUENZA VACCINE (#1) [facility] Start: 12-10-2014 Screening for malignant neoplasm of cervix PAP SMEAR [facility] Start: 2014 Screening for malignant neoplasm of colon [facility] Start: 01-01-2014 Screening for malignant neoplasm of breast Breast cancer screen [facility] Start: 01-01-2013 Screening for malignant neoplasm of breast MAMMOGRAM SCREENING DISCUSSION [facility] Start: 01-01-2013 Screening mammography Mammogram [facility] Start: 2009 Lipid panel [facility] Start: 1990 Screening for malignant neoplasm of cervix [facility] Start: 1988 DTaP,Tdap and Td Vaccines (1 - Tdap) DTaP,Tdap and Td Vaccines (1 - Tdap) [facility] Start: 1988 DTaP/Tdap/Td vaccine (1 - Tdap) DTaP/Tdap/Td vaccine (1 - Tdap) [facility] Start: 1988 Hepatitis B vaccination HEP B VACCINE (1 of 3 - 19+ 3-dose series) [facility] Start: 1988 Hepatitis B vaccine (1 of 3 - 19+ 3-dose series) Hepatitis B vaccine (1 of 3 - 19+ 3-dose series) [facility] Start: 1988 Pneumococcal 50+ years Vaccine (1 of 2 - PCV) Pneumococcal 50+ years Vaccine (1 of 2 - PCV) [facility] Start: 1988 Third diphtheria, tetanus and acellular pertussis (DTaP) vaccination TDAP (ADULT) [facility] Start: 06-21-1987 Hepatitis C antibody, confirmatory test Hepatitis C Screening [facility] Start: 06-21-1987 Hepatitis C screening Hepatitis C screen [facility] Start: 06-21-1987 Tetanus vaccination TETANUS [facility] Start: 1985 COVID-19 Vaccine (1 of 2) COVID-19 Vaccine (1 of 2) [facility] Start: 1984 HIV screening [facility] Start: 1981 Depression Screen Depression Screen [facility] Start: 1981 Depression Screening [facility] Start: 06-21-1975 Pneumococcal 0-64 years Vaccine (1 of 1 - PPSV23) Pneumococcal 0-64 years Vaccine (1 of 1 - PPSV23) [place] Start: 06-21-1975 Pneumococcal 0-64 years Vaccine (1 of 2 - PCV) Pneumococcal 0-64 years Vaccine (1 of 2 - PCV) [facility] Start: 06-21-1975 PNEUMOCOCCAL VACCINE SERIES (1 - PCV) PNEUMOCOCCAL VACCINE SERIES (1 - PCV) [facility] Start: 06-21-1975 PNEUMOCOCCAL VACCINE SERIES (1 of 2 - PCV) PNEUMOCOCCAL VACCINE SERIES (1 of 2 - PCV) [facility] Start: 1972 History and physical examination, annual for health maintenance Wellness Visit [facility] Start: 1969 COVID-19 Vaccine (#1) COVID-19 Vaccine (#1) [facility] Start: 1969 Hepatitis B vaccination HEP B VACCINE (1 of 3 - 3-dose series) [facility] Start: 1969 Hepatitis B vaccine (1 of 3 - 3-dose series) Hepatitis B vaccine (1 of 3 - 3-dose series) [facility] Start: 1969 Hepatitis C screening [facility] Start: 1969 Tetanus vaccination [facility] Start: 1969 Tobacco Counseling Tobacco Counseling [facility] CBC auto differential CBC auto d ifferential Lab Routine Daily until discontinued starting 08/23/2019, 3 completed [place] Comment on above: Daily until discontinued starting 2019, [address] ABDOMEN PELVIS W IV CONTRAST Additional Contrast? None CT ABDOMEN PELVIS W IV CONTRAST Additional Contrast? None Imaging STAT 03/26/2020 3:01 PM EST [place], [place] EKG 12 Lead EKG 12 Lead ECG Routine 01/07/2024 2:42 PM EDT [facility] Work Phone: IgG Subclasses IgG Subclasses A dd-On 05/14/2017 2:06 PM [facility] Initiate Oxygen Therapy Protocol Initiate Oxygen Therapy Protocol Respiratory Care Routine Daily until discontinued starting 08/22/2019 [place], [place] Comment on above: Daily until discontinued starting 2019 Lipase Lipase Lab Routi ne Daily until discontinued starting 08/23/2019, 3 completed [facility] Comment on above: Daily until discontinued starting 2019, 3 completed Patient Education [facility] Work Phone: Patient referral [facility] Work Phone: End: 08-22-2019 Pulse Oximetry Spot Check Pulse Oximetry Spot Check Respiratory Care Routine One Time for 1 Occurrences starting 08/22/2019 until 08/22/2019 [facility] Comment on above: One Time for 1 Occurrences starting 08/07 until 08/22/2019 Screening colonoscopy SCREENING COLONOSCOPY GI/Bronch Routine Encounter for screening colonoscopy 01/28/2022 9:43 AM EST [facility] Screening colonoscopy SCREENING COLONOSCOPY GI/Bronch Routine Encounter for screening for malignant neoplasm of colon Ordered: 05/11/2023 [facility] Comment on above: Ordered: 05/11/2023 End: 04-07-2024 SPECIMEN REJECTION [facility] Comment on above: Once for 1 Occurrences starting 04/07/19 until 04/07/2024 End: 09-27-2024 Urinalysis with Microscopic Urinalysis with Microscopic Lab STAT One Time for 1 Occurrences starting 09/27/2024 until 09/27/2024 [facility] Comment on above: One Time for 1 Occurrences starting 09/07 until 09/27/2024 Immunizations Immunization Date Immunization Notes Care Provider Jhon jones 12-23-2015 influenza, injectabl e, quadrivalent, contains preservative Sabrina Dee MD, MPH Work Phone: [facility] 12-23-2015 influenza virus vaccine, unspecified formulation Sabrina Dee MD, MPH Work Phone: [facility] 12-15-2014 influenza virus vaccine, unspecified formulation Sabrina Dee MD, MPH Work Phone: [facility] Payers Date Payer Category Payer Self-pay [id number] 2023 Private Health Insurance [id number] 2022 Medicaid [employer] HMO [id number] 2022-Present [phone] [address] [place] [address] [id number] 2019 Unknown [employer] [facility] MEDICAID xxxxxxxxxxx 2019-Present [phone] CLAIMS DEPARTMENT [address] [place] [address] xxxxxxxxxxx [id number] 2017 Unknown [id number] 2017 Unknown 1969 Unknown [id number] 1969 Unknown [id number] 2.16.840.1.459496.3.579.2. 900 1970 Unknown [id number] 2.16.840.1.932548.3.579.2. 900 1970 Unknown [id number] 2.16.840.1.697479.3.579.2. 900 1969 Unknown [id number] 2.16.840.1.993332.3.579.2. 900 1969 Unknown [id number] 2.16.840.1.845138.3.579.2. 593 1969 Unknown [id number] 2.16.840.1.990137.3.579.2. 593 1969 Unknown [id number] 2.16.840.1.964472.3.579.2. 593 1969 Unknown [id number] 2.16.840.1.962653.3.579.2. 593 1969 Unknown [id number] 2.16.840.1.905017.3.579.2. 593 1969 Unknown [id number] 2.16.840.1.172901.3.579.2. 593 1969 Unknown [id number] 2.16.840.1.267420.3.579.2. 593 1969 Unknown [id number] 2.16.840.1.594994.3.579.2. 593 1969 Unknown [id number] 2.16.840.1.366180.3.579.2. 593 1969 Unknown [id number] 2.16.840.1.741688.3.579.2. 593 1969 Unknown [id number] 2.16.840.1.554385.3.579.2. 593 1969 Unknown [id number] 2.16.840.1.841165.3.579.2. 593 1969 Unknown [id number] 2.16.840.1.165554.3.579.2. 593 1969 Unknown [id number] 2.16.840.1.526629.3.579.2. 593 1969 Unknown [id number] 2.16.840.1.190808.3.579.2. 594 1969 Unknown [id number] 2.16.840.1.811814.3.579.2. 594 1969 Unknown [id number] 2.16.840.1.884506.3.579.2. 594 1969 Unknown [id number] 2.16.840.1.677337.3.579.2. 173 1969 Unknown [id number] 2.16.840.1.082698.3.579.2. 173 1969 Unknown [id number] 2.16.840.1.465893.3.579.2. 173 1969 Unknown [id number] 2.16.840.1.658250.3.579.2. 173 1969 Unknown [id number] 2.16.840.1.518511.3.579.2. 173 1969 Unknown [id number] 2.16.840.1.712712.3.579.2. 727 1969 Unknown [id number] 2.16.840.1.541643.3.579.2. 727 1969 Unknown [id number] 2.16.840.1.395414.3.579.2. 7 1969 Unknown [id number] 2.16.840.1.037072.3.579.2. 7 1969 Unknown [id number] 2.16.840.1.652776.3.579.2. 1969 Unknown [id number] 2.16.840.1.469428.3.579.2. 1969 Unknown [id number] 2.16.840.1.049753.3.579.2. 1285 1969 Unknown [id number] 2.16.840.1.533649.3.579.2. 1285 1969 Unknown [id number] 2.16.840.1.951872.3.579.2. 1285 1969 Unknown [id number] 2.16.840.1.274122.3.579.2. 1285 1969 Unknown [id number] 2.16.840.1.754868.3.579.2. 1285 1969 Unknown [id number] 2.16.840.1.351901.3.579.2. 1285 1969 Unknown [id number] 2.16.840.1.909106.3.579.2. 1285 1969 Unknown [id number] 2.16.840.1.383060.3.579.2. 1286 1969 Unknown [id number] 2.16.840.1.527225.3.579.2. 1286 1969 Unknown [id number] 2.16.840.1.743117.3.579.2. 1286 1969 Unknown [id number] 2.16.840.1.928388.3.579.2. 1286 1969 Unknown [id number] 2.16.840.1.678948.3.579.2. 1286 1969 Unknown [id number] 2.16.840.1.024350.3.579.2. 727 1960 Medicaid [id number] 1959 Unknown [id number] 1.2.840.521274.1.13.239.2. 7.3.062537.315 Unknown [id number] 2.16.840.1.282551.3.579.2. 531 Unknown [id number] 2.16.840.1.766852.3.579.2. 531 Social History Date Type Detail Facility Start: 06-09-2017 End: 10-28-2024 Tobacco smoking status MTIS Current every day smoker [facility] End: 10-30-2020 History of tobacco use Cigarette Smoker [facility] Start: 06-09-2017 End: 09-20-2024 Cigarettes smoked current (pack per day) - Reported [facility] Start: 1970 Sex Assigned At Not on file [facility] Start: 08-22-2019 End: 09-27-2024 Alcohol intake Current non-drinker of alcohol (finding) [place], [place] Exposure to SARS-CoV -2 (event) Unable to assess [place] Start: 03-08-2018 End: 09-27-2024 Tobacco use and exposure Never used [place] Start: 07-24-2014 Tobacco Comment Smokes < 1/2 ppd, smoker for 30+ years [facility] Start: 07-24-2014 Alcohol Comment Prior heavy drinker, quit 8 years ago [facility] Start: 08-12-2022 End: 09-20-2024 Sex Assigned At [employer] [facility] Start: 09-25-2021 End: 04-18-2023 Tobacco smoking status NHIS Smoker (finding) [facility] Start: 1970 Sex Assigned At Female [facility] Start: 05-09-2016 Alcohol 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 Never [email or web address] How many standard drinks containing alcohol do you have on a typical day? Patient does not drink [facility] [employer] [facility] Start: 06-25-2022 End: 09-27-2024 Tobacco smoking status [facility] Ex-smoker [facility] Start: 04-11-2023 End: 05-11-2023 Alcohol intake Ex-drinker (finding) [facility] [employer] [facility] Start: 06-25-2022 Alcohol Comment Has not consumed alcohol in 12 years [facility] Start: 04-18-2012 Sex Female (finding) [employer] Start: 08-08-2024 Sexual orientation Heterosexual (finding) [employer] Functional Status Date Assessment [facility] Clinical Notes 10-08-2019 to 10-28-2024 Discharge InstructionsAttachmentsDischarge InstructionsAttachmentsDischarge InstructionsAttaJose Alvarado RN - 01/19/2024 11:44 AM Brennan Alvarado RN - 01/19/2024 11:44 AM ESTAttachments Note Date & Type Note Facility 10-28-2024 Radiology Diagnostic study note [facility] Main [place] [id number] CT Scan Report Signed Patient: Chioma Arciniega MR#: [id number] : 1970 Acct:[id number] Age/Sex: 54 / F ADM Date: 5 Loc: ER Room: Type: [facility] ER Attending Dr: Copies to: Andrew Ponce PA-C~ Ordering Provider: Andrew Ponce PA-C Date of Service: 10/28/24 CT/CT abdomen pelvis w con: Chronic pancreatitis CT Abdomen and Pelvis withcontrast TECHNIQUE: Axial imaging with 2-D reconstruction.90 cc of Isovue-300. The CT exam was performed using one or more the following dose reduction techniques: Automated exposure control, adjustment of the MA and/or Kv according to patient size, or use of the iterative reconstruction technique. COMPARISON: 10/19/2024 History: Chronic pancreatitis. Nausea vomiting and diarrhea. LIMITATIONS: None LOWER THORAX Unremarkable LIVER: Unremarkable GALLBLADDER: Cholecystectomy clips identified. BILE DUCTS: No dilatation SPLEEN: Unremarkable PANCREAS: Unremarkable ADRENAL GLANDS: 12 mm left adrenal nodule unchanged KIDNEYS:Unremarkable AORTA: No abdominal aortic aneurysm identified. RETROPERITONEUM: No significant retroperitoneal abnormalities identified. MESENTERY:Unremarkable STOMACH:Unremarkable SMALL BOWEL: The small bowel loops are nondistended. APPENDIX: The appendix is normal. COLON: Unremarkable URINARY BLADDER: Urinary bladder is unremarkable. REPRODUCTIVE SYSTEM: The uterus is absent. PNEUMOPERITONEUM: None PERITONEAL FLUID:None BONY STRUCTURES: Extensive lumbar degenerative changes ABDOMINAL WALL: Unremarkable CT/CT abdomen pelvis w con IMPRESSION: No acute findings. Impression dictated by: Cruzito Mendieta M.D. 10/28/2024 4:38 PM Dictation Location: [place] [address] Transcribed By: [facility] 10/28/24 1638 Dictated By: Cruzito Mendieta DO 10/28/24 1636 Signed By: 10/28/24 1638 [facility] 10-28-2024 Hospital Discharg e instructions Additional Instructions It is very important that you follow up with your primary care provider in the next 2-3 days unless instructed to do otherwise. If you do not have a primary care provider, you can contact [facility] and ask about being established for primary care services. If you require specialist follow up, such as with an orthopedic physician, peanut picker, urologist, or other medical specialty, you should contact the specialty clinic as soon as possible to schedule a follow up appointment. If you are established with a specialist, you can contact your preferred physician for follow up. If you are not already established with the specialist you need, you may have contact information provided to you with these discharge instructions. If you are being prescribed medications, take exactly as prescribed. Antibiotics, if prescribed, should be taken until the entire course is completed. You should not have left over antibiotics. Continue to take any previously prescribed home medications unless instructed otherwise. If you are experiencing fever or mild to moderate pain, you should first take Tylenol or ibuprofen available tvrv-uot-cansvlr. Medications, if prescribed to treat pain from the emergency department, are intended to provide relief for severe pain that is not relieved by other methods of pain relief, you should use these medications cautiously as many are known to cause sedation/sleepiness, increased risk for falls, and other effects such as constipation. If your symptoms worsen please return to the ED or if you have any other concerns [facility] Work Phone: 10-24-2024 Note ED Patient Education Note Endocrinology Chronic Pancreatitis Chronic pancreatitis is permanent inflammation and scarring of the pancreas that leads to pancreatic dysfunction. The pancreas is a gland that is found behind the stomach. The pancreas makes proteins (enzymes) that help to digest food. It also releases hormones called glucagon and insulin. These help regulate blood sugar (glucose). Damage to the pancreas may affect digestion, may cause pain in the upper abdomen and back, and may cause diabetes. Inflammation can also irritate other organs in the abdomen near the pancreas. At first, pancreatitis may be sudden (acute). When you have repeated or long-lasting episodes of acute pancreatitis, damage to the pancreas can be permanent and lead to chronic pancreatitis. Sometimes, though, there is no history of acute pancreatitis. What are the causes? The most common cause of this condition is heavy alcohol use. Other causes include: ??? Hypertriglyceridemia. This is increased, or elevated, levels of triglycerides in the blood. ??? Gallstones or other conditions that block the tube that drains the pancreas (pancreatic duct). ??? Health conditions such as pancreatic cancer or a problem where the body's defense system (immune system) attacks the pancreas (autoimmune pancreatitis). ??? Hypercalcemia. This is elevated calcium levels in the blood. This condition may be caused by the parathyroid gland being too active (hyperparathyroidism). ??? Having an injured or infected pancreas. ??? Being exposed to certain medicines or certain chemicals. In children, chronic pancreatitis is most often caused by inherited conditions. These come from genes that are passed from parent to child. The most common of these conditions is cystic fibrosis. In some cases, the cause of chronic pancreatitis may not be known. What increases the risk? This condition is more likely to develop in people who: ??? Are male. ??? Are 35?55 years old. ??? Have a family history of pancreatitis. ??? Smoke tobacco. ??? Drink a lot of alcohol over a long period of time. What are the signs or symptoms? Symptoms of this condition may include: ??? Pain in the abdomen or upper back. Pain may be severe and often gets worse after you eat. ??? Nausea and vomiting. ??? Fever. ??? Weight loss. ??? A change in the color and firmness (consistency) of stool (feces), such as stools that are oily, fatty, or dima-colored. How is this diagnosed? This condition is diagnosed based on your symptoms, your medical history, and a physical exam. You may have tests, such as: ??? Blood tests. ??? Stool samples. ??? Biopsy of the pancreas. This is the removal of a sample of pancreas tissue to be tested in a lab. ??? Imaging tests, such as CT scans, MRIs, or an ultrasound of the abdomen. How is this treated? Chronic pancreatitis results in permanent damage that leads to pancreatic dysfunction and long-term (chronic) pain. To manage chronic pancreatitis, you will need to: ??? Stop using alcohol or tobacco. ??? Manage pain. Methods of pain control may include: ? Medicines such as those used for pain or depression (antidepressants). ? Surgery to remove a blockage or buildup of fluid causing pain. ? A procedure to block the nerves that sense pain in the pancreas (celiac plexus nerve block). ??? Improve digestion. You may be given: ? Medicines to replace your pancreatic enzymes. ? Vitamin supplements. ? A specific diet to follow. You may work with a dietitian to make an eating plan. ??? Monitor for the development of diabetes. You may need to: ? Get screened for diabetes regularly. ? Check your blood glucose levels at home at regular times. Sometimes, acute flares of pain may require hospital treatment. Follow these instructions at home: Eating and drinking ??? Do not drink alcohol. If you need help quitting, ask your health care provider. ??? Follow a diet as told by your health care provider or dietitian, if this applies. This may include: ? Limiting how much fat you eat. ? Eating smaller meals more often. ? Avoiding caffeine. ??? Drink enough fluid to keep your urine pale yellow. General instructions ??? Take txyv-wto-advwurt and prescription medicines only as told by your health care provider. These include vitamin supplements. ??? Ask your health care provider if the medicine prescribed to you: ? Requires you to avoid driving or using machinery. ? Can cause constipation. You may need to take these actions to prevent or treat constipation: ? Take zrlu-lcx-fumqegu or prescription medicines. ? Eat foods that are high in fiber, such as beans, whole grains, and fresh fruits and vegetables. ? Limit foods that are high in fat and processed sugars, such as fried or sweet foods. ??? Do not use any products that contain nicotine or tobacco. These (more content not included)... [facility] 10-19-2024 Radiology Diagnostic study note [facility] Main [place] [address] [place] [address] CT Scan Report Signed Patient: Chioma Arciniega MR#: [id number] : 1970 Acct:[id number] Age/Sex: 54 / F ADM Date: 5 Loc: ER Room: Type: [facility] ER Attending Dr: Copies to: Nicole Posadas APRN~ Ordering Provider: Nicole Posadas APRN Date of Service: 10/19/24 CT/CT abdomen pelvis w con: abd pain CT Abdomen and Pelvis withcontrast TECHNIQUE: Axial imaging with 2-D reconstruction.90 cc of Isovue-300. The CT exam was performed using one or more the following dose reduction techniques: Automated exposure control, adjustment of the MA and/or Kv according to patient size, or use of the iterative reconstruction technique. COMPARISON: 04/18/2023 History: Mid upper abdominal pain for 2 days. Nausea and vomiting LIMITATIONS: None LOWER THORAX small hiatal hernia LIVER: Unremarkable GALLBLADDER: Cholecystectomy clips identified. BILE DUCTS: No dilatation SPLEEN: Unremarkable PANCREAS: Unremarkable ADRENAL GLANDS: 12 mm left adrenal nodule unchanged KIDNEYS:Unremarkable AORTA: No abdominal aortic aneurysm identified. RETROPERITONEUM: No significant retroperitoneal abnormalities identified. MESENTERY:Unremarkable STOMACH:Unremarkable SMALL BOWEL: The small bowel loops are nondistended. APPENDIX: The appendix is normal. COLON: Unremarkable URINARY BLADDER: Urinary bladder is unremarkable. REPRODUCTIVE SYSTEM: The uterus is absent. PNEUMOPERITONEUM: None PERITONEAL FLUID:None BONY STRUCTURES: Degenerative change ABDOMINAL WALL: Unremarkable CT/CT abdomen pelvis w con IMPRESSION: No acute findings. No bowel obstruction. Similar hiatal hernia. Similar small left adrenal nodule Impression dictated by: Cruzito Mendieta M.D. 10/19/2024 10:12 PM Dictation Location: [place] [address] Transcribed By: [facility] 10/19/242211 Dictated By: Cruzito Mendieta DO 10/19/242203 Signed By: 10/19/242211 [facility] 10-09-2024 Note ED Patient Education Note Endocrinology Chronic Pancreatitis Chronic pancreatitis is permanent inflammation and scarring of the pancreas that leads to pancreatic dysfunction. The pancreas is a gland that is found behind the stomach. The pancreas makes proteins (enzymes) that help to digest food. It also releases hormones called glucagon and insulin. These help regulate blood sugar (glucose). Damage to the pancreas may affect digestion, may cause pain in the upper abdomen and back, and may cause diabetes. Inflammation can also irritate other organs in the abdomen near the pancreas. At first, pancreatitis may be sudden (acute). When you have repeated or long-lasting episodes of acute pancreatitis, damage to the pancreas can be permanent and lead to chronic pancreatitis. Sometimes, though, there is no history of acute pancreatitis. What are the causes? The most common cause of this condition is heavy alcohol use. Other causes include: ??? Hypertriglyceridemia. This is increased, or elevated, levels of triglycerides in the blood. ??? Gallstones or other conditions that block the tube that drains the pancreas (pancreatic duct). ??? Health conditions such as pancreatic cancer or a problem where the body's defense system (immune system) attacks the pancreas (autoimmune pancreatitis). ??? Hypercalcemia. This is elevated calcium levels in the blood. This condition may be caused by the parathyroid gland being too active (hyperparathyroidism). ??? Having an injured or infected pancreas. ??? Being exposed to certain medicines or certain chemicals. In children, chronic pancreatitis is most often caused by inherited conditions. These come from genes that are passed from parent to child. The most common of these conditions is cystic fibrosis. In some cases, the cause of chronic pancreatitis may not be known. What increases the risk? This condition is more likely to develop in people who: ??? Are male. ??? Are 35?55 years old. ??? Have a family history of pancreatitis. ??? Smoke tobacco. ??? Drink a lot of alcohol over a long period of time. What are the signs or symptoms? Symptoms of this condition may include: ??? Pain in the abdomen or upper back. Pain may be severe and often gets worse after you eat. ??? Nausea and vomiting. ??? Fever. ??? Weight loss. ??? A change in the color and firmness (consistency) of stool (feces), such as stools that are oily, fatty, or dima-colored. How is this diagnosed? This condition is diagnosed based on your symptoms, your medical history, and a physical exam. You may have tests, such as: ??? Blood tests. ??? Stool samples. ??? Biopsy of the pancreas. This is the removal of a sample of pancreas tissue to be tested in a lab. ??? Imaging tests, such as CT scans, MRIs, or an ultrasound of the abdomen. How is this treated? Chronic pancreatitis results in permanent damage that leads to pancreatic dysfunction and long-term (chronic) pain. To manage chronic pancreatitis, you will need to: ??? Stop using alcohol or tobacco. ??? Manage pain. Methods of pain control may include: ? Medicines such as those used for pain or depression (antidepressants). ? Surgery to remove a blockage or buildup of fluid causing pain. ? A procedure to block the nerves that sense pain in the pancreas (celiac plexus nerve block). ??? Improve digestion. You may be given: ? Medicines to replace your pancreatic enzymes. ? Vitamin supplements. ? A specific diet to follow. You may work with a dietitian to make an eating plan. ??? Monitor for the development of diabetes. You may need to: ? Get screened for diabetes regularly. ? Check your blood glucose levels at home at regular times. Sometimes, acute flares of pain may require hospital treatment. Follow these instructions at home: Eating and drinking ??? Do not drink alcohol. If you need help quitting, ask your health care provider. ??? Follow a diet as told by your health care provider or dietitian, if this applies. This may include: ? Limiting how much fat you eat. ? Eating smaller meals more often. ? Avoiding caffeine. ??? Drink enough fluid to keep your urine pale yellow. General instructions ??? Take qfaa-xuj-tgjmhww and prescription medicines only as told by your health care provider. These include vitamin supplements. ??? Ask your health care provider if the medicine prescribed to you: ? Requires you to avoid driving or using machinery. ? Can cause constipation. You may need to take these actions to prevent or treat constipation: ? Take yzhn-jgn-qvslgbk or prescription medicines. ? Eat foods that are high in fiber, such as beans, whole grains, and fresh fruits and vegetables. ? Limit foods that are high in fat and processed sugars, such as fried or sweet foods. ??? Do not use any products that contain nicotine or tobacco. These (more content not included)... [facility] 10-03-2024 Note ED Patient Education Note Endocrinology Chronic Pancreatitis Chronic pancreatitis is permanent inflammation and scarring of the pancreas that leads to pancreatic dysfunction. The pancreas is a gland that is found behind the stomach. The pancreas makes proteins (enzymes) that help to digest food. It also releases hormones called glucagon and insulin. These help regulate blood sugar (glucose). Damage to the pancreas may affect digestion, may cause pain in the upper abdomen and back, and may cause diabetes. Inflammation can also irritate other organs in the abdomen near the pancreas. At first, pancreatitis may be sudden (acute). When you have repeated or long-lasting episodes of acute pancreatitis, damage to the pancreas can be permanent and lead to chronic pancreatitis. Sometimes, though, there is no history of acute pancreatitis. What are the causes? The most common cause of this condition is heavy alcohol use. Other causes include: ??? Hypertriglyceridemia. This is increased, or elevated, levels of triglycerides in the blood. ??? Gallstones or other conditions that block the tube that drains the pancreas (pancreatic duct). ??? Health conditions such as pancreatic cancer or a problem where the body's defense system (immune system) attacks the pancreas (autoimmune pancreatitis). ??? Hypercalcemia. This is elevated calcium levels in the blood. This condition may be caused by the parathyroid gland being too active (hyperparathyroidism). ??? Having an injured or infected pancreas. ??? Being exposed to certain medicines or certain chemicals. In children, chronic pancreatitis is most often caused by inherited conditions. These come from genes that are passed from parent to child. The most common of these conditions is cystic fibrosis. In some cases, the cause of chronic pancreatitis may not be known. What increases the risk? This condition is more likely to develop in people who: ??? Are male. ??? Are 35?55 years old. ??? Have a family history of pancreatitis. ??? Smoke tobacco. ??? Drink a lot of alcohol over a long period of time. What are the signs or symptoms? Symptoms of this condition may include: ??? Pain in the abdomen or upper back. Pain may be severe and often gets worse after you eat. ??? Nausea and vomiting. ??? Fever. ??? Weight loss. ??? A change in the color and firmness (consistency) of stool (feces), such as stools that are oily, fatty, or dima-colored. How is this diagnosed? This condition is diagnosed based on your symptoms, your medical history, and a physical exam. You may have tests, such as: ??? Blood tests. ??? Stool samples. ??? Biopsy of the pancreas. This is the removal of a sample of pancreas tissue to be tested in a lab. ??? Imaging tests, such as CT scans, MRIs, or an ultrasound of the abdomen. How is this treated? Chronic pancreatitis results in permanent damage that leads to pancreatic dysfunction and long-term (chronic) pain. To manage chronic pancreatitis, you will need to: ??? Stop using alcohol or tobacco. ??? Manage pain. Methods of pain control may include: ? Medicines such as those used for pain or depression (antidepressants). ? Surgery to remove a blockage or buildup of fluid causing pain. ? A procedure to block the nerves that sense pain in the pancreas (celiac plexus nerve block). ??? Improve digestion. You may be given: ? Medicines to replace your pancreatic enzymes. ? Vitamin supplements. ? A specific diet to follow. You may work with a dietitian to make an eating plan. ??? Monitor for the development of diabetes. You may need to: ? Get screened for diabetes regularly. ? Check your blood glucose levels at home at regular times. Sometimes, acute flares of pain may require hospital treatment. Follow these instructions at home: Eating and drinking ??? Do not drink alcohol. If you need help quitting, ask your health care provider. ??? Follow a diet as told by your health care provider or dietitian, if this applies. This may include: ? Limiting how much fat you eat. ? Eating smaller meals more often. ? Avoiding caffeine. ??? Drink enough fluid to keep your urine pale yellow. General instructions ??? Take ksyh-kle-jzqvkqw and prescription medicines only as told by your health care provider. These include vitamin supplements. ??? Ask your health care provider if the medicine prescribed to you: ? Requires you to avoid driving or using machinery. ? Can cause constipation. You may need to take these actions to prevent or treat constipation: ? Take itcv-yti-bnafuld or prescription medicines. ? Eat foods that are high in fiber, such as beans, whole grains, and fresh fruits and vegetables. ? Limit foods that are high in fat and processed sugars, such as fried or sweet foods. ??? Do not use any products that contain nicotine or tobacco. These (more content not included)... [facility] 09-27-2024 [facility] Discharg e instructions Tasha Zamora MD - 09/27/2024 1:57 PM EDT Continue avoiding any fatty foods or processed meals. Continue hydrating at home avoid any smoking or alcohol use. You may continue taking your Phenergan for nausea and vomiting. Follow-up with GI specialists as scheduled outpatient. Return to the ER for any worsening symptoms or concerns The following attachments cannot be sent through Care Everywhere.Nausea and Vomiting (Congolese)documented in this encounter [facility] 09-20-2024 [facility] Discharg e instructions Tasha Zamora MD - 09/20/2024 8:45 PM EDT Call you GI doctor and PCP to schedule a follow up visit. Continue with clear liquid diet as discussed in your visit, progressing slowly to darker liquid diet and soups to low fatty meals. Avoid solid food until progressing with diet slowly over 5-7 days. Avoid smoking- tobacco can exacerbate pancreatic inflammation Return to ER if you have: - Signs of infection with fever of 100.4F or higher - Worsening pain, nausea or vomiting -Yellowing of skin or whites of eyes The following attachments cannot be sent through Care Everywhere.Pancreatitis (Congolese)Pancreatitis: Chronic Diet (Congolese)documented in this encounter [facility] 05-31-[address] ABDOMEN AND PELVI S [...] London Hurd DO on 05/31/2024 3:21 PM [facility] 04-07-2024 Hospital Discharg e instructions Peter Escalera MD - 04/07/2024 6:10 PM EST Please start a clear liquid diet today and tomorrow, advance as tolerated, avoid alcohol. Follow-up with your GI doctor tomorrow for further recommendations. The following attachments cannot be sent through Care Everywhere.Pancreatitis (Congolese)Clear Liquid Diet: General Info (Congolese)documented in this encounter [facility] 01-19-2024 Nurse Surgical operation note [...] off unit via wheelchair w/ family assistance. [facility] 01-19-2024 Nurse Note Patient mets discharge criteria, [...] w/ family assistance. documented in this encounter [facility] 01-19-2024 History and physical note ENDOSCOPIC PREPROCEDURE HISTORY AND PHYSICAL HISTORY OF PRESENT ILLNESS: Chioma Rainey is a 53 y.o. female seen in the pre-procedure area at [facility]. The indication for [...] 50,000 Units, Oral, WEEKLY Pancreatic enzymes (Creon) 96259-88[address]-905785 units Cap DR Particles capsule 72,000 Units, Oral, 2 TIMES DAILY WITH MEALS Current Outpatient Medications: Ergocalciferol 1.25 MG (28001 UT) capsule, Take 1 capsule by mouth once a week., Disp: 8 capsule, Rfl: 0 Pancreatic enzymes (Creon) [id number] units Cap DR Particles capsule, Take 3 [...] using Monitored Anesthesia Care. Daniel Christiansen MD [facility] Work Phone: 01-19-2024 History and physical note ENDOSCOPIC PREPROCEDURE HISTORY AND PHYSICAL HISTORY OF PRESENT ILLNESS: Chioma Rainey is a 53 y.o. female seen in the pre-procedure area at [facility]. The indication for endoscopic evaluation includes: Alcohol-induced chronic pancreatitis PAST MEDICAL HISTORY: Past Medical History: Diagnosis Date Anemia Depression H. pylori infection Neutrophilic leukocytosis Pancreatitis SURGICAL HISTORY: Past Surgical History: Procedure Laterality Date EGD W/ ULTRASOUND 09/08/2023 for nerve block EGD W/ ULTRASOUND N/A 12/01/2019 Laterality: N/A; Surgeon: Sabrina Dee MD, MPH; Location: [facility] EGD W/ ULTRASOUND N/A 04/23/2016 Laterality: N/A; Surgeon: Pineda Troy MD; Location: [facility] EGD W/ ULTRASOUND N/A 01/23/2016 Laterality: N/A; Surgeon: Pineda Troy MD; Location: [facility] CHANGE TUBE GASTROSTOMY N/A 08/20/2015 Laterality: N/A; Surgeon: Yanni Alonzo MD; Location: [facility] EGD DIAGNOSTIC N/A 06/25/2015 Laterality: N/A; Surgeon: Pineda Troy MD; Location: [facility] EGD W/ PLACEMENT OR REPLACEMENT PEG N/A 06/15/2015 Laterality: N/A; Surgeon: Curry Newell MD; Location: [facility] EGD W/ INSERTION TUBE OR CATHETER N/A 06/13/2015 Laterality: N/A; Surgeon: Jose Ty MD; Location: [facility] EGD W/ ULTRASOUND N/A 02/14/2015 Laterality: N/A; Surgeon: Pineda Troy MD; Location: [facility] CHOLECYSTECTOMY CHOLECYSTECTOMY, LAPAROSCOPIC HYSTERECTOMY MEDICATIONS: Current Outpatient Medications Medication Instructions Ergocalciferol (VITAMIN D2) 50,000 Units, Oral, WEEKLY Pancreatic enzymes (Creon) [id number] units Cap DR Particles capsule 72,000 Units, Oral, 2 TIMES DAILY WITH MEALS Current Outpatient Medications: Ergocalciferol 1.25 MG (09351 UT) capsule, Take 1 capsule by mouth once a week., Disp: 8 capsule, Rfl: 0 Pancreatic enzymes (Creon) 77053-86[address]-269316 units Cap DR Particles capsule, Take 3 [...] Daniel Christiansen MD documented in this encounter [facility] 01-07-2024 Hospital Discharg e instructions Dayday Jensen APRN - CNP - 01/07/2024 5:08 PM EDT Increase fluids. Scammon diet Continue home medication The following attachments cannot be sent through Care Everywhere.Abdominal Pain (Congolese)Pancreatitis (Congolese)Pancreatitis: Chronic Diet (Congolese)documented in this encounter [facility] 09-08-2023 History and physical note ENDOSCOPIC PREPROCEDURE HISTORY AND PHYSICAL HISTORY OF PRESENT ILLNESS: Chioma Rainey is a 53 y.o. female seen in the pre-procedure area at [facility]. The indication for [...] Laterality: N/A; Surgeon: Yanni Alonzo MD; Location: [facility] EGD DIAGNOSTIC N/A 06/25/2015 [...] 50,000 Units, Oral, WEEKLY Pancreatic enzymes (Creon) 83968-[address] units [address] Particles capsule 72,000 Units, Oral, 2 TIMES DAILY WITH MEALS Current Outpatient Medications: Ergocalciferol 1.25 MG (73569 UT) capsule, Take 1 capsule by mouth once a week., Disp: 8 capsule, Rfl: 0 Pancreatic enzymes (Creon) 92400-[address] units [address] Particles capsule, Take 3 [...] Monitored Anesthesia Care. Sabrina Dee MD, MPH [facility] 09-08-2023 History and physical note ENDOSCOPIC PREPROCEDURE HISTORY AND PHYSICAL HISTORY OF PRESENT ILLNESS: Chioma Rainey is a 53 y.o. female seen in the pre-procedure area at [facility]. The indication for [...] 50,000 Units, Oral, WEEKLY Pancreatic enzymes (Creon) 86733-[address] Particles capsule 72,000 Units, Oral, 2 TIMES DAILY WITH MEALS Current Outpatient Medications: Ergocalciferol 1.25 MG (75749 UT) capsule, Take 1 capsule by mouth once a week., Disp: 8 capsule, Rfl: 0 Pancreatic enzymes (Creon) 63798-81407 units [address] Particles capsule, Take 3 [...] Dee MD, MPH documented in this encounter [facility] 09-08-2023 Miscellaneous Notes RN and educated pt on DC instructions, pt verbalized understanding. IV removed per protocol. documented in this encounter [facility] 09-08-2023 Nurse Note JOSE LUIS and educated pt on DC instructions, pt verbalized understanding. IV removed per protocol. [facility] 05-22-2023 Miscellaneous Notes Called patient to remind them to bring their most current copy of their medication list with them to their appt. Patient verbalizes understanding. documented in this encounter [facility] 05-22-2023 Telephone encounter Note Called patient to remind them to bring their most current copy of their medication list with them to their appt. Patient verbalizes understanding. [facility] 05-11-2023 History of Presen t illness Narrative This [employer] verified the patients name and date of [...] for pain management 5. Prior evaluation at [facility] for TPIAT and was not a candidate [...] (human immunodeficiency virus infection), Hyperlipidemia, Hyperthyroidism, Hypothyroidism, [place] (myocardial infarction), Migraine, PEGGY (obstructive sleep apnea), [...] includes the following prescription(s): Pancreatic enzymes (Creon) 72732-[address] Particles capsule and Ergocalciferol 1.25 MG (58237 UT) capsule. Allergies: She is allergic to [...] Hepatology, and Nutrition documented in this encounter [facility] 05-11-2023 Instructions Sabrina Dee MD, MPH - [...] celiac plexus block documented in this encounter [facility] 04-16-2023 Miscellaneous Notes Pt called requesting to schedule a new patient appt. Referral is in media from Tamela Keenan DO. A good phone number to reach the pt: [phone] Referral in media was to [facility] so pt has no referral to nephrology. LM informing pt she would need to have her referring provider fax us over a referral and then I could schedule her a new pt appt. documented in this encounter [facility] 04-16-2023 Telephone encounter Note Pt called requesting to schedule a new patient appt. Referral is in media from Tamela Keenan DO. A good phone number to reach the pt: [phone] [facility] 04-16-2023 Telephone encounter Note Referral in media was to [facility] so pt has no referral to nephrology. LM informing pt she would need to have her referring provider fax us over a referral and then I could schedule her a new pt appt. [facility] 04-16-2023 Miscellaneous Notes LMOM for the patient to call and schedule their new pt appointment with [facility]. documented in this encounter [facility] 04-16-2023 Telephone encounter Note LMOM for the patient to call and schedule their new pt appointment with [facility]. [facility] 08-12-2022 History and physical note ENDOSCOPIC PREPROCEDURE HISTORY AND PHYSICAL HISTORY OF PRESENT ILLNESS: Chioma Rainey is a 52 y.o. female seen in the pre-procedure area at [facility]. The indication for [...] 20 mg, Oral, DAILY Pancreatic enzymes (Creon) [id number] units [address] Particles capsule 48,000 Units, Oral, 3 TIMES DAILY WITH MEALS Current Outpatient Medications: omeprazole [address] capsule, Take 1 capsule by mouth daily., Disp: 30 capsule, Rfl: 6 amitriptyline 10 MG tablet, Take 2.5 tablets by mouth at bedtime., Disp: 30 tablet, Rfl: 11 ergocalciferol 1.25 MG (49780 UT) capsule, Take 1 capsule by mouth once a week for 8 doses., Disp: 8 capsule, Rfl: 0 Pancreatic enzymes (Creon) 99635-610[address] units Cap [address] Particles capsule, Take 2 capsules by mouth 3 times daily with meals., Disp: 180 capsule, Rfl: 0 Current Facility-Administered Medications: Lactated ringers IV solution, , Intravenous, Continuous, aSbrina Dee MD, MPH lidocaine 1% buffered in [...] Monitored Anesthesia Care. Sabrina Dee MD, MPH [facility] 08-12-2022 History and physical note ENDOSCOPIC PREPROCEDURE HISTORY AND PHYSICAL HISTORY OF PRESENT ILLNESS: Chioma Rainey is a 52 y.o. female seen in the pre-procedure area at [facility]. The indication for endoscopic evaluation includes: Alcohol-induced chronic pancreatitis PAST MEDICAL HISTORY: Past Medical History: Diagnosis Date Anemia Depression H. pylori infection Neutrophilic leukocytosis Pancreatitis SURGICAL HISTORY: Past Surgical History: Procedure Laterality Date EGD W/ ULTRASOUND N/A 12/01/2019 Laterality: N/A; Surgeon: Sabrina Dee MD, MPH; Location: [facility] EGD W/ ULTRASOUND [...] 20 mg, Oral, DAILY Pancreatic enzymes (Creon) 27735-[address] Particles capsule 48,000 Units, Oral, 3 TIMES DAILY WITH MEALS Current Outpatient Medications: omeprazole [address] capsule, Take 1 capsule by mouth daily., Disp: 30 capsule, Rfl: 6 amitriptyline 10 MG tablet, Take 2.5 tablets by mouth at bedtime., Disp: 30 tablet, Rfl: 11 ergocalciferol 1.25 MG (07919 UT) capsule, Take 1 capsule by mouth once a week for 8 doses., Disp: 8 capsule, Rfl: 0 Pancreatic enzymes (Creon) 71634-[address] units Cap [address] Particles capsule, Take 2 [...] Dee MD, MPH documented in this encounter [facility] 08-12-2022 Nurse Note PT Given discharge paperwork and reviewed per MD and nurse. [employer] available.Diet and restrictions reviewed as well. Venous access removed no complications noted. Ok to d/c Anesthesia and procedural MD. documented in this encounter [facility] 08-12-2022 Nurse Surgical operation note PT Given discharge paperwork and reviewed per MD and nurse. [employer] available.Diet and restrictions reviewed as well. Venous access removed no complications noted. Ok to d/c Anesthesia and procedural . [facility] History of Presen t illness Narrative This Furn[employer] verified the patients name and date of [...] for pain management 5. Prior evaluation at [facility] for TPIAT and was not a candidate 6. Last CT was at [facility] in 05/2019: No calcification in the pancreas. [...] (human immunodeficiency virus infection), Hyperlipidemia, Hyperthyroidism, Hypothyroidism, [place] (myocardial infarction), Migraine, PEGGY (obstructive sleep apnea), [...] amitriptyline 10 MG tablet, ergocalciferol 1.25 MG (26649 UT) capsule, and Pancreatic enzymes (Creon) 09702-[address] Particles capsule. Allergies: She [...] Hepatology, and Nutrition documented in this encounter [facility] 06-16-2022 Instructions Sabrina Dee MD, MPH - 06/16/2022 11:00 AM EDT Schedule EUS celiac plexus block; EGD dilation Referral to endocrinology; appointment to be scheduled Return to clinic in Mar 2023 Smoking cessation Vitamin D 2000 units daily Calcium supplement 1 gram daily Omeprazole (Prilosec) 20mg daily, take at least 30 mins before dinner documented in this encounter [facility] 01-28-2022 Miscellaneous Notes Attending physician in room speaking with patient and family on results. Attending physician ok for discharge. Pt ambulated unassisted with steady gait and balance. IV removed and discharge instructions given with verbal ok by patient of understanding. Pt discharged via w/c with city route driver from unit. Dr dee aware patient ready for results Updated dr goins on patient pain and received new orders documented in this encounter [facility] 01-28-2022 Note Formatting of this n ote might be different from the original. Attending physician in room speaking with patient and family on results. Attending physician ok for discharge. Pt ambulated unassisted with steady gait and balance. IV removed and discharge instructions given with verbal ok by patient of understanding. Pt discharged via w/c with city route driver from unit. [facility] 01-28-2022 Note Formatting of this n ote might be different from the original. Dr dee aware patient ready for results [facility] 01-28-2022 Note Formatting of this n ote might be different from the original. Updated dr goins on patient pain and received new orders [facility] 01-28-2022 History and physical note ENDOSCOPIC PREPROCEDURE HISTORY AND PHYSICAL HISTORY OF PRESENT ILLNESS: Chioma Rainey is a 51 y.o. female seen in the preoprocedure area at [facility]. The indication for endoscopic evaluation includes: Recurrent acute pancreatitis PAST MEDICAL HISTORY: Past Medical History: Diagnosis Date Anemia Depression H. pylori infection Neutrophilic leukocytosis Pancreatitis SURGICAL HISTORY: Past Surgical History: Procedure Laterality Date EGD W/ ULTRASOUND N/A 12/01/2019 Laterality: N/A; Surgeon: Sabrina Dee MD, MPH; Location: [facility] EGD W/ ULTRASOUND N/A 04/23/2016 Laterality: N/A; Surgeon: Pineda Troy MD; Location: [facility] EGD W/ ULTRASOUND N/A 01/23/2016 Laterality: N/A; Surgeon: Pineda Troy MD; Location: [facility] CHANGE TUBE GASTROSTOMY N/A 08/20/2015 Laterality: N/A; Surgeon: Yanni Alonzo MD; Location: [facility] EGD DIAGNOSTIC N/A 06/25/2015 Laterality: N/A; Surgeon: Pineda Troy MD; Location: [facility] EGD W/ PLACEMENT OR REPLACEMENT PEG N/A 06/15/2015 Laterality: N/A; Surgeon: Curry Newell MD; Location: [facility] EGD W/ INSERTION TUBE OR CATHETER N/A 06/13/2015 Laterality: N/A; Surgeon: Jose Ty MD; Location: [facility] EGD W/ ULTRASOUND N/A 02/14/2015 Laterality: N/A; Surgeon: Pineda Troy MD; Location: [facility] CHOLECYSTECTOMY CHOLECYSTECTOMY, LAPAROSCOPIC HYSTERECTOMY MEDICATIONS: Current Outpatient Medications Medication Instructions amitriptyline (ELAVIL) 25 mg, Oral, DAILY AT BEDTIME ergocalciferol (VITAMIN D2) 50,000 Units, Oral, WEEKLY Pancreatic enzymes (Creon) [id number] units [address] Particles capsule 48,000 Units, Oral, 3 TIMES DAILY WITH MEALS Current Outpatient Medications: amitriptyline 10 MG tablet, Take 2.5 tablets by mouth at bedtime., Disp: 30 tablet, Rfl: 11 Pancreatic enzymes (Creon) [id number] units [address] Particles capsule, Take 2 capsules by mouth 3 times daily with meals., Disp: 180 capsule, Rfl: 0 ergocalciferol 1.25 MG (18013 UT) capsule, Take 1 capsule by mouth [...] Monitored Anesthesia Care. Sabrina Dee MD, MPH [facility] 01-28-2022 History and physical note ENDOSCOPIC PREPROCEDURE HISTORY AND PHYSICAL HISTORY OF PRESENT ILLNESS: Chioma Rainey is a 51 y.o. female seen in the preoprocedure area at [facility]. The indication for endoscopic evaluation includes: Recurrent acute pancreatitis PAST MEDICAL HISTORY: Past Medical History: Diagnosis Date Anemia Depression H. pylori infection Neutrophilic leukocytosis Pancreatitis SURGICAL HISTORY: Past Surgical History: Procedure Laterality Date EGD W/ ULTRASOUND N/A 12/01/2019 Laterality: N/A; Surgeon: Sabrina Dee MD, MPH; Location: [facility] EGD W/ ULTRASOUND N/A 04/23/2016 Laterality: N/A; Surgeon: Pineda Troy MD; Location: [facility] EGD W/ ULTRASOUND N/A 01/23/2016 Laterality: N/A; Surgeon: Pineda Troy MD; Location: [facility] CHANGE TUBE GASTROSTOMY N/A 08/20/2015 Laterality: N/A; Surgeon: Yanni Alonzo MD; Location: [facility] EGD DIAGNOSTIC N/A 06/25/2015 Laterality: N/A; Surgeon: Pineda Troy MD; Location: [facility] EGD W/ PLACEMENT OR REPLACEMENT [...] 50,000 Units, Oral, WEEKLY Pancreatic enzymes (Creon) 69274-[address] units [address] Particles capsule 48,000 Units, Oral, 3 TIMES DAILY WITH MEALS Current Outpatient Medications: amitriptyline 10 MG tablet, Take 2.5 tablets by mouth at bedtime., Disp: 30 tablet, Rfl: 11 Pancreatic enzymes (Creon) 71329-[address] Particles capsule, Take 2 capsules by mouth 3 times daily with meals., Disp: 180 capsule, Rfl: 0 ergocalciferol 1.25 MG (90063 UT) capsule, Take 1 capsule by mouth [...] 1 Application, Irrigation, As directed PRN, Sabrina eDe MD, MPH ALLERGIES: Allergies Allergen Reactions Toradol [...] MD, MPH documented in this encounter [facility] 12-16-2021 History of Presen t illness [...] for pain management 5. Prior evaluation at [facility] for TPIAT and was not a candidate 6. Last CT was at [facility] in 05/2019: No calcification in the pancreas. [...] (human immunodeficiency virus infection), Hyperlipidemia, Hyperthyroidism, Hypothyroidism, [place] (myocardial infarction), Migraine, PEGGY (obstructive sleep apnea), [...] 10 MG tablet and Pancreatic enzymes (Creon) 12234-[address] Particles capsule. Allergies: She [...] in 6 months documented in this encounter [facility] 12-16-2021 Instructions Sabrina Dee MD, MPH - 12/16/2021 11:30 AM EDT Schedule DEXA scan Schedule colonoscopy Schedule EUS Start vitamin D 1,000 units daily. Start calcium supplements 1g daily RTC in 6 months documented in this encounter [facility] 03-19-2021 Evaluation note Encounter Date Diagnosis Assessment [...] care instructions given in writting by [facility] document [employer] Other 08-01-2020 History general Narrative - Reported* Type Description Date Medical History chronic pancreatitis Medical History chronic pain Medical History former alcoholic Surgical History [facility]- [facility] 10[facility]2019 Surgical History GALLBLADDER Surgical History COLON-[facility] Hospitalization History see above [employer] Other Evaluation noteNo assessment information available [facility] Work Phone: Evaluation note* Diagnosis Recurrent acute pancreatitis- Primary Acute pancreatitis History of smoking 25-50 pack years Alcohol-induced chronic pancreatitis Chronic pancreatitis Epigastric pain Abdominal pain, epigastric Encounter for screening colonoscopy Special screening for malignant neoplasms, colon [facility] Recurrent acute pancreatitis Acute pancreatitis History of smoking 25-50 pack years Encounter for screening colonoscopy Special screening for malignant neoplasms, colon [facility] Diagnosis Other osteoporosis without current pathological fracture- Primary Recurrent acute pancreatitis Acute pancreatitis Encounter for screening colonoscopy Special screening for malignant neoplasms, colon [facility] Diagnosis Encounter for screening colonoscopy Special screening for malignant neoplasms, colon [facility] Diagnosis Osteoporosis without current pathological fracture, unspecified osteoporosis type- Primary Alcohol-induced chronic pancreatitis Chronic pancreatitis [facility] Diagnosis Alcohol-induced chronic pancreatitis Chronic pancreatitis [facility] Diagnosis Alcohol-induced chronic pancreatitis- Primary Chronic pancreatitis Encounter for screening for malignant neoplasm of colon Special screening for malignant neoplasms, colon Other osteoporosis without current pathological fracture Epigastric pain Abdominal pain, epigastric Smoking Tobacco use disorder Gastroesophageal reflux disease without esophagitis Esophageal reflux [facility] Diagnosis Alcohol-induced chronic pancreatitis Chronic pancreatitis [facility] Diagnosis Alcohol-induced chronic pancreatitis Chronic pancreatitis [facility] Diagnosis Hypokalemia- Primary Hypopotassemia Acute recurrent pancreatitis Acute pancreatitis documented in this encounter [facility] note* Diagnosis Acute on chronic pancreatitis (HCC)- Primary Abdominal pain, epigastric documented in this encounter [facility] note* Diagnosis Acute pancreatitis without infection or necrosis, unspecified pancreatitis type- Primary Acute recurrent pancreatitis Acute pancreatitis documented in this encounter [facility] note* Diagnosis Abdominal pain, epigastric- Primary documented in this encounter [facility] note* Diagnosis Other chronic pancreatitis (HCC)- Primary documented in this encounter [facility] note* Diagnosis Abdominal pain, epigastric- Primary Nausea and vomiting, unspecified vomiting type [facility] Additional Instructions Fluids Phenergan if needed for nausea vomiting Bentyl as needed for abdominal pain Follow-up with your GI specialist call Thursday for appointment Return here if any problems persist or worsen [facility] Work Phone: Hospital Discharge instructions Additional Instructions Clear with diet today and advance as tolerated Push fluids Percocet if needed for severe pain Zofran or Phenergan if needed for nausea vomiting Keep your doctor's appointment tomorrow as planned Return here if you develop any increased pain, vomiting unable to be controlled, fevers, chills or any other concernHolmes [facility] Work Phone: Hospital Discharge instructions Additional Instructions Follow-up with your primary care doctor Return to ED if develop worsening symptoms or concernsHolmes County [facility] Work Phone: Hospital Discharge instructions Additional Instructions Follow-up with your private physician as your calcium was slightly elevated Return if symptoms are worse Lots of fluids/no alcoholHolmes County [facility] Work Phone: Hospital Discharge instructions* Attachments The following attachments cannot be sent through Care Everywhere. * Clear Liquid Diet: General Info (Congolese) [facility]* Attachments The following attachments cannot be sent through Care Everywhere. * Abdominal Pain (Congolese) [facility] Additional Instructions Clear liquid diet and then advance as tolerated Avoid any spicy, hot, fried foods Zofran for nausea vomiting [place] if needed for severe pain Follow-up with your GI specialist call tomorrow for appointment Return here if any problems persist or worsenHolmes [facility] Work Phone: InstructionsNot on filedocumented in this encounter [facility] System[facility]ructionsNot on filedocumented in this encounter [facility] SystemInstructionsNot on filedocumented in this encounter [facility] SystemReason for referral (narrative)No reason for referral information availableHolmes County [facility] Work Phone: Discharge Instructions * Herealberto, Jose Argueta PA-C - 06/09/2017 Abdominal Pain: Care Instructions [...] Log into your personal health record on [email or web address] and enter E907 in the Education box to learn more about Abdominal Pain: Care Instructions. Current as of: August 03, 2015 Content Version: 11.2 7167-1595 [employer]. Care instructions adapted under license by your healthcare professional. If you have questions about a medical condition or this instruction, always ask your healthcare professional. [employer] disclaims any warranty or liability for your [...] Log into your personal health record on [email or web address] and enter H591 in the Education box to learn more about Nausea and Vomiting: Care Instructions. Current as of: August 03, 2015 Content Version: 11.2 2801-8746 [employer]. Care instructions adapted under license by your healthcare professional. If you have questions about a medical condition or this instruction, always ask your healthcare professional. [employer] disclaims any warranty or liability for your use of this information. Please review regarding your visit: Please note that your blood pressure during this ER visit was above 120/80 mmHg. YOUR BP READING WAS: 111/88 The [place] [employer] (AHA) defines a normal blood [...] review at your convenience for more information: [email or web address] in this encounter* Discharge Instr - Other Orders - Poncho Sparks RN - 05/15/2017 1:20 PM EST Patient voices desire to leave hospital AMA. IV removed. Patient is ambulatory in care of spouse. [facility] hospitalist notified. in this encounter* Montse Khan CNP - 08/24/2017 Seek medical attention if you have worsening symptoms or other concerns. Please follow up with your family doctor or one of your choosing. You may find a provider through the [facility] Physician Referral Service by calling [phone] ([phone]) or by visiting [email or web address] [email or web address], Thank You for choosing [facility]! The following attachments cannot be sent through Care Everywhere. * Nausea and Vomiting (Congolese) * Gastroenteritis (Congolese) * Diarrhea (Congolese) in this encounter The following attachments cannot be sent through Care Everywhere. * Pancreatitis (Congolese) in this encounter* Instructions* Laura Meyer RN - 08/25/2019 Patient Instructions: Activity: activity as tolerated Diet: encourage fluids GI specialist in 2 weeks. * Attachments The following attachments cannot be sent through Care Everywhere. * Pancreatitis: Chronic Diet (Congolese) * Pancreatitis (Congolese) documented in this encounter Assessments Diagnosis Epigastric [...] family medical history Unknown Not Specified Unknown Relationship Condition Age at Onset Recorded Date/T eli Not Specified Unknown family medical history Unknown mother Unknown Advance Directives No Advanced Directives Records FoundDocuments on File Type Date Recorded Patient Dramatic Director Expl anation Advance Directives and Living Will Power of Grease Refiner Operator Latest Code Status on File Code Status Date Activated Date Inactivated Comments Full Code 08/22/2019 4:27 PM Documents on File Type Date Recorded Patient Dramatic Director Expl anation Advance Directives and Livin [...] Documents on File Type Date Recorded Patient Dramatic Director Expl anation ACP-Advance Directive ACP-Power of Grease Refiner Operator Latest Code Status on File Code [...] toradol is contraindicated. Called Dr. Hughes back, appeals writer explained that patient is tolerating dilaudid. Dr. Hughes ordered dose of dilaudid increased from 0.25 mg to 0.5 mg q4 hrs PRN. * Ladan Stearns RN - 08/24/2019 1:27 PM EDT Patient walking in hallway at this time. * Ladan Stearns RN - 08/24/2019 9:14 AM EDT Crop Setting Out Machine Operator to patients bedside at this time to reassess pain. Patient sitting in chair, appears restless and is tearful. Patient states Dilaudid did not help the pain, states there is nothing appeals writer can do as she deals with [...] Scheduled for EGD in September with her Correspondence Dictator at [facility] Discharge Planning -- Home when stable Carley Camara APRN, RESIDENTIAL NURSE-C Associated attestation - Rajeev Cantor MD - 08/24/2019 5:30 PM EDT Attending Supervising Physician s Attestation Statement I have personally evaluated and examined the patient [id number] in conjunction with the nurse practitioner. I [...] Examined and Reviewed plan of care with RESIDENTIAL NURSE. Directions and discussion about care and plans. [...] [place] RN - 08/23/2019 4:40 PM EDT Crop Setting Out Machine Operator contacted Dr. Cantor regarding update that patient [...] he would not give order for Benedryl. Crop Setting Out Machine Operator let nurse know that if patient's c/o ithcing and redness doesn't improve in an hour, that appeals writer will be calling back to update physician. * Brie Birmingham RN - 08/23/2019 3:20 PM EDT Crop Setting Out Machine Operator called into patient's room d/t patient c/o itching, feeling hot , and slight redness noted to BUE and face. Crop Setting Out Machine Operator contacted Dr. Cantor office and left message with his nurse, asking for IV Benedryl and d/c of Lovenox. Patient thinks she may have had reaction to Lovenox in the past, and thatis the only other med she is currently taking here other than Dilaudid. Crop Setting Out Machine Operator did once again verify that patient usually [...] stable. Patient lives with her in [place]. She uses no DME and has no outside services currently in place. Patient provides for her own transportation needs and manages her medications. She is independent with her ADL's. PCP is [facility]. [facility] [place] [facility] [place] and denies needing further assistance with the cost of her medications. Discharge plan is home with no additional services at this time. Patient is a 'Full Code' status. She has no healthcare directives and voices that she is not interested in pursuing these documents further. [place] HISTORY PROFESSOR to monitor and assist with discharge planning [...] [place] RN - 08/23/2019 9:05 AM EDT Crop Setting Out Machine Operator made AIR CARGO AGENT aware that patient is vomiting at this time since clear liquid diet added. Crop Setting Out Machine Operator to give Zofran and place patient back [...] weight loss, but states of weight gain. [id number] Discussed need to re-zero Pt bed to verify gain. She declined education needs states she has a GI doctor and RDN at the [facility]. Reports following the guidelines they recommended. States [...] 5. Fluid Accumulation-No significant fluid accumulation, 6. Retail Advertising Sales Manager Strength-Not measured Nutrition Risk Level: Moderate Nutrient Needs: Estimated Daily Total Kcal: 5676-5394(20-23/kg) Estimated Daily Protein (g): 65-75g(1.3-1.5g/kg) Estimated Daily [...] weight gain/23%, recommend to re-zero Pt bed [place] Body Wt: 110 lb (49.9 kg), % [place] Body 129% BMI Classification: BMI 25.0 - [...] Nausea or Vomiting, Patient/Family Education Contact Number: [phone] * Carley Camara APRN - AIR CARGO AGENT - 08/23/2019 7:30 AM EDT Progress [...] Daily Discharge Plan--later today/tomorrow Carley Camara APRN, RESIDENTIAL NURSE-C Associated attestation - Rajeev Cantor MD - 08/23/2019 12:04 PM EDT Attending Supervising Physician s Attestation Statement I have personally evaluated and examined the patient [id number] in conjunction with the nurse practitioner. I [...] Examined and Reviewed plan of care with RESIDENTIAL NURSE. Directions and discussion about care and plans. [...] running a code on another patient; supervisor real estate office states that report will be called when able. Crop Setting Out Machine Operator unable to get ahold of staff inED to put patient in medical clinic manager so that appeals writer can transfer patient over to [facility]. [...] Abd pain, Vomiting, hx Pancreatitis abd pain/vomiting Chief Complaint Admit Date upper abd pain October 19, 2024 4: 29pm Chief Complaint Admit Date upper abd pain October 19, 2024 4: 29pm abd pain October 28, 2024 1: 47pm Reason for Referral Specialty Diagnoses / Procedures Referred By Contac t Referred To Contact Diagnoses Alcohol-induced chronic pancreatitis Procedures UPPER EUS NH ESOPHAGOGASTRODUODENOSCOPY US SCOPE W/ADJ STRXRS Sabrina Dee MD, MPH [address] [place] [phone] Referral ID Status Reason Start Date Expiration Date V isits Requested Visits Authorized [id number] New Request 06/16/2022 07/11/2023 1 1 Specialty Diagnoses / Procedures Referred By Contac t Referred To Contact Endocrinology, Diabetes & Metabolism Diagnoses Osteoporosis without current pathological fracture, unspecified osteoporosis type Sabrina Dee MD, MPH [address] [place] [phone] Referral ID Status Reason Start Date Expiration Date V isits Requested Visits Authorized [id number] New Request 06/16/2022 07/11/2023 1 1 Specialty Diagnoses / Procedures Referred By Contac t Referred To Contact Diagnoses Encounter for screening colonoscopy Procedures SCREENING COLONOSCOPY NH COLON CA SCRN NOT HI RSK IND Sabrina Dee MD, MPH [address] [place] [phone] Referral ID Status Reason Start Date Expiration Date V isits Requested Visits Authorized [id number] New Request 12/16/2021 01/10/2023 1 1 Specialty Diagnoses / Procedures Referred By Contac t Referred To Contact Diagnoses Recurrent acute pancreatitis History of smoking 25-50 pack years Procedures BONE DENSITY AXIAL (HIP, PELVIS, SPINE) Sabrina Dee MD, MPH [address] [place] [phone] Referral ID Status Reason Start Date Expiration Date V isits Requested Visits Authorized [id number] New Request 12/16/2021 01/10/2023 1 1 Specialty Diagnoses / Procedures Referred By Contac t Referred To Contact Diagnoses Recurrent acute pancreatitis Procedures UPPER EUS NH EGD US GUIDED TRANSMURAL INJXN/FIDUCIAL MARKER Sabrina Dee MD, MPH [address] [place] [phone] Referral ID Status Reason Start Date Expiration Date V isits Requested Visits Authorized [id number] New Request 12/16/2021 01/10/2023 1 1 Additional [...] the patient. I discussed the patient with RESIDENTIAL NURSE/PA. I agree with the RESIDENTIAL NURSE/PA treatment plan. I agree with the RESIDENTIAL NURSE/PA plan of care. I agree with the RESIDENTIAL NURSE/PA dispo as documented. 46-year-old female presents with abdominal pain. She states I have chronic pancreatitis and this feels like a flareup . States that she took her usual Phenergan and [place] with minimal relief so came the emergency [...] She is going to follow with her cotton acreage measurer with whom she has an appointment on [...] the original. ED PROVIDER NOTE [facility] NAME: Chioma Rainey AGE: 46 y.o. : 1970 VISIT DATE: 06/09/2017 CSN: [id number] PCP: Alexander Nichols MD Chief Complaint Patient [...] Phenergan suppository. She states that she took [place] last night. Last dose of [place] was around 9 PM last night. She [...] Procedure: EGD; Surgeon: Romain Dumont MD; Location: [facility]; Service: HYSTERECTOMY ORIF PELVIS ORTHOPEDIC SURGERY [...] Yellow Clarity, Urine Cloudy (A) Clear Specific [place] 1.024 1.005 - 1.025 pH, Urine 5.0 [...] Phenergan suppositories. She has follow-up with her cotton acreage measurer at [facility] in 2 weeks. Do not feel [...] Information 1. Pineda Troy MD. Specialty: Gastroenterology [address] [place] [address] Contact information for after-discharge care Follow-up information has not been specified. New Prescriptions No medications on file (Please note that portions of this note may have been completed with a voice recognition software. Efforts were made to correct any errors, but occasionally words are mis-transcribed.) Jose Brown PA-C 06/09/17 0381 Pt states I have pancreatitis and I am having a flare up since last night . Pt relates mid abdominal pain that shoots into the left side of her back. Pt has been taking prescribed [place] without relief and states she has been vomiting.in this encounter I personally interviewed the patient. I personally examined the patient. I discussed the patient with RESIDENTIAL NURSE/PA. I agree with the RESIDENTIAL NURSE/PA treatment plan. I agree with the RESIDENTIAL NURSE/PA plan of care. I agree with the RESIDENTIAL NURSE/PA dispo as documented. I saw evaluate this [...] the original. ED PROVIDER NOTE [facility] NAME: Chioma Rainey AGE: 46 y.o. : 1970 VISIT DATE: 05/14/2017 CSN: [id number] PCP: Alexander Nichols MD Chief Complaint Patient [...] Procedure: EGD; Surgeon: Romain Dumont MD; Location: [facility]; Service: HYSTERECTOMY ORIF PELVIS ORTHOPEDIC SURGERY [...] Colorless, Yellow Clarity, Urine Clear Clear Specific [place] 1.006 1.005 - 1.025 pH, Urine 5.0 [...] in the left lower pelvis. Workstation ID: [id number] Procedures MDM This is a 46-year-old female [...] the original. ED PROVIDER NOTE [facility] NAME: Chioma Rainey AGE: 47 y.o. : 1970 VISIT DATE: 08/24/2017 CSN: [id number] PCP: Alexander Nichols MD Chief Complaint Patient [...] Procedure: EGD; Surgeon: Romain Dumont MD; Location: [facility]; Service: HYSTERECTOMY ORIF PELVIS ORTHOPEDIC SURGERY [...] Yellow Clarity, Urine Hazy (A) Clear Specific [place] 1.006 1.005 - 1.025 pH, Urine 7.0 [...] probably remain. 5. Small left adrenal adenoma. [employer] Workstation ID: [id number] Procedures MDM 47-year-old female [...] she did vomit. She was then given NH Phenergan and a dose of Toradol. She [...] Internal Medicine Why: follow up ER visit [address] [place] [address] Contact information for after-discharge care Follow-up information [...] the patient. I discussed the patient with RESIDENTIAL NURSE/PA. I agree with the RESIDENTIAL NURSE/PA treatment plan. I agree with the RESIDENTIAL NURSE/PA plan of care. I agree with the RESIDENTIAL NURSE/PA dispo as documented. Formatting of this note may be different from the original. ED PROVIDER NOTE [facility] NAME: Chioma Rainey AGE: 47 y.o. : 1970 VISIT DATE: 03/04/2018 CSN: [id number] PCP: Alexander Nichols MD Chief Complaint Patient [...] Procedure: EGD; Surgeon: Romain Dumont MD; Location: [facility]; Service: HYSTERECTOMY ORIF PELVIS ORTHOPEDIC SURGERY [...] Colorless, Yellow Clarity, Urine Clear Clear Specific [place] 1.004 (L) 1.005 - 1.025 pH, Urine [...] Attending Provider or Group: [facility] SACHIN, GENERIC [[id number]] Phone call required?: No Follow-up Information Follow-up [...] different from the original. Adonis Negro MD [facility] Hospitalists History and Physical Patient Name:Chioma Rainey MR #:[id number] :1970 Admit Date: [id number] Physicians: Alexander Nichols [...] Procedure: EGD; Surgeon: Romain Dumont MD; Location: [facility]; Service: HYSTERECTOMY ORIF PELVIS ORTHOPEDIC SURGERY [...] Diagnoses Acute recurrent pancreatitis Rajeev Cantor MD [address] [place] [address], [place] [address] [facility] Reason Comments Abdominal Pain Pt c/o abdominal [...] Dee MD, MPH [address] [place] [address] Referral ID Status Reason Start Date Expiration Date V isits Requested Visits Authorized [id number] New Request 12/16/2021 01/10/2023 1 1 Specialty Diagnoses / Procedures Referred By Zia espinal Referred To Contact Diagnoses Recurrent acute pancreatitis Procedures UPPER EUS NH EGD US GUIDED TRANSMURAL INJXN/FIDUCIAL MARKER Sabrina Dee MD, MPH [address] [place] [phone] Referral ID Status Reason Start Date Expiration Date V isits Requested Visits Authorized [id number] New Request 12/16/2021 01/10/2023 1 1 Specialty Diagnoses / Procedures Referred By Contac t Referred To Contact Diagnoses Encounter for screening colonoscopy Procedures SCREENING COLONOSCOPY NH COLON CA SCRN NOT HI RSK IND Sabrina Dee MD, MPH [address] [place] [phone] Referral ID Status Reason Start Date Expiration Date V isits Requested Visits Authorized [id number] New Request 12/16/2021 01/10/2023 1 1 Reason Comments Follow-up 6 month follow up Specialty Diagnoses / Procedures Referred By Contac t Referred To Contact Diagnoses Alcohol-induced chronic pancreatitis Procedures UPPER EUS NH ESOPHAGOGASTRODUODENOSCOPY US SCOPE W/ADJ STRXRS Sabrina Dee MD, MPH [address] [place] [phone] Referral ID Status Reason Start Date Expiration Date V isits Requested Visits Authorized [id number] New Request 06/16/2022 07/11/2023 1 1 Reason Comments Follow-up Specialty Diagnoses / Procedures Referred By Contac t Referred To Contact Diagnoses Alcohol-induced chronic pancreatitis Procedures UPPER EUS NH EGD US GUIDED TRANSMURAL INJXN/FIDUCIAL MARKER Sabrina Dee MD, MPH [address] [place] [phone] Referral ID Status Reason Start Date Expiration Date V isits Requested Visits Authorized [id number] New Request 05/11/2023 06/04/2024 1 1 Referral ID Status Reason Start Date Expiration Date V isits Requested Visits Authorized [id number] New Request 12/23/2023 01/16/2025 1 1 Reason [...] and states s/s feel same. Vomiting Nausea Reason Comments Abdominal Pain Patient to the ER wi th complaint of abdominal pain. Patient reports she has a history of pancreatitis and has episodes where it act up. Approximately 1 week prior she began to experience mid upper abdominal pain with nausea vomiting. Her GI specialist at [facility] instructed her to come to the ER for an evaluation Reason Comments Abdominal Pain Pt states she has a hx of pancreatitis and she believes she is having a flare up, c/o generalized abdominal pain with nausea and vomiting. Reason Comments Abdominal Pain Upper abdominal/epig astric pain waking her up from sleep last night. N/V/D. Hx of pancreatitis. Established with GI at [facility]. INFORMATION SOURCE (unrecogn ized section and content) DATE CREATED AUTHOR 03/09/2018 [facility] DATE CREATED AUTHOR AUTHOR'S ORGANIZ ATION 04/08/2021 [facility] DATE CREATED AUTHOR AUTHOR'S ORGANIZ ATION 06/18/[address] [facility] DATE CREATED AUTHOR AUTHOR'S ORGANIZ ATION 01/20/2024 [facility] DATE CREATED AUTHOR AUTHOR'S ORGANIZ ATION 09/28/2024 [facility] DATE CREATED AUTHOR AUTHOR'S ORGANIZ ATION 10/05/2024 [facility] DATE CREATED AUTHOR AUTHOR'S ORGANIZ ATION 10/10/2024 [facility] DATE CREATED AUTHOR AUTHOR'S ORGANIZ ATION 10/25/2024 [facility] DATE CREATED AUTHOR AUTHOR'S ORGANIZ ATION 10/26/2024 [facility] DATE CREATED AUTHOR AUTHOR'S ORGANIZ ATION 10/28/2024 [facility] DATE CREATED AUTHOR AUTHOR'S ORGANIZ ATION 10/28/2024 [facility] DATE CREATED AUTHOR AUTHOR'S ORGANIZ ATION 10/29/2024 [facility] Care Teams (unrecognized sec tion and content) [...] Active Christa Lopez PA-C Emergency Provider Active Pot Liner Relationship Specialty Start Date End Date Pineda Troy MD [address] [place] [phone] PCP - Referring 1 Gastroenterology 09/25/17 [facility] [address] [facility] [place] [address] PCP - General 11/28/19 Pot Liner Relationship Specialty Start Date End Date Pineda Troy MD [address] [place] [phone] PCP - Referring 1 Gastroenterology 09/25/17 [facility] [address] [facility] [place] [address] PCP - General 11/28/19 Pot Liner Relationship Specialty Start Date End Date Pineda Troy MD [address] [place] [id number] PCP - Referring 1 Gastroenterology 09/25/17 [facility], Other [address] [facility] [place] [address] PCP - General 11/28/19 Pot Liner Relationship Specialty Start Date End Date Pineda Troy MD [address] [place] [phone] PCP - Referring 1 Gastroenterology 09/25/17 [facility], Other [address] [facility] [place] [address] PCP - General 11/28/19 Team Status: Inactive Member Role Status Dates NON STAFF Primary Care Provider Active Agustin Llanes MD Emergency Provider Active Pot Liner Relationship Specialty Start Date End Date Pineda Troy MD [address] [place] [phone] PCP - Referring 1 Gastroenterology 09/25/17 [facility], Other [address] [facility] [address] PCP - General 11/28/19 Pot Liner Relationship Specialty Start Date End Date Pineda Troy MD [address] [place] [address], [place] [phone] PCP - Referring 1 Gastroenterology 09/25/17 [facility], Other [address] [place] [facility] [place] [address] PCP - General 11/28/19 Team Status: Inactive [...] April 18, 2023 End: April 18, 2023 Darrel Kellogg MD Emergency Provider Active Star t: April 18, 2023 End: April 18, 2023 Pot Liner Relationship Specialty Start Date End Date Pineda Troy MD [address] [place] [phone] PCP - Referring 1 Gastroenterology 09/25/17 [facility], Other [address] [facility] [address] PCP - General 11/28/19 Pot Liner Relationship Specialty Start Date End Date Pineda Troy MD PCP - Referring 1 Gastroenterology 09/25/17 [facility], Other [address] [facility] [address] PCP - General 11/28/19 Pot Liner Relationship Specialty Start Date End Date Pineda Troy MD PCP - Referring 1 Gastroenterology 09/25/17 [facility], Other [address] [facility] [address] PCP - General 11/28/19 Pot Liner Relationship Specialty Start Date End Date Services, [facility] [address] [place] PCP - General Family Medicine 03/26/23 Pot Liner Relationship Specialty Start Date End Date Services, [facility] [address] [place] PCP - General Family Medicine 03/26/23 Pot Liner Relationship Specialty Start Date End Date Services, [facility] [address] [place], [place] PCP - General Family Medicine 03/26/23 Team Status: Inactive Member Role Status Dates NON STAFF Primary Care Provider Active Start: October 19, 2024 End: October 19, 2024 Nicole Posadas APRN Emergency Provider Active Start: October 19, 2024 End: October 19, 2024 Team Status: Inactive Member Role Status Dates NON STAFF Primary Care Provider Active Start: October 28, 2024 End: October 28, 2024 Andrew Ponce PA-C Emergency Provider Active Start: October 28, 2024 End: October 28, 2024 Goals (unrecognized section and content) Goals may [...] Prescription Sig Dispensed Refills Start Date End ondansetron (ZOFRAN-ODT) 4 MG disintegrating tablet Take [...] Amount: 4 tablets 12 tablet 04/07/2024 04/10/2024 Prescription Sig Dispense Quantity Refills Last Filled Start Date End ondansetron (ZOFRAN-ODT) 4 MG disintegrating tablet Take 1 tablet by mouth 3 times daily as needed for Nausea or Vomiting 21 tablet 08/08/2024 HYDROcodone-acetamin ophen (NORCO) 5-325 MG per tabletIndications:Ab dominal pain, epigastric Take 1 tablet by mouth every 6 hours as needed for Pain for up to 3 days. Intended supply: 3 days. Take lowest dose possible to manage pain Max Daily Amount: 4 tablets 12 tablet 08/08/2024 Prescription Sig Dispense Quantity Refills Last Filled Start Date End Date promethazine (PHENERGAN) 25 MG tablet Take 1 tablet by mouth 4 times daily as needed for Nausea 20 tablet 09/20/2024 09/27/2024 Scheduled Active and Recently Administ ered Medications [...] IntraVENous, ONCE, 1 dose, On Thu09/29/23 at 2015, If administering IV push, administer at a [...] 1 mg, IntraVENous, ONCE, 1 dose, On Ealdia 01/07/24 at 1615, If oral and IV narcotics ordered, use oral first and only use IV if oral is ineffective or cannot take oral. Do Not give oral and IV within 1 hour of each other unless specifically ordered. 1610 (Given - Provid er: Joyce Soria RN) [...] (Given - Provid er: Miguel Angel Kellogg) Scheduled Medication Order 08/06/2024 08/07/2024 08/08/2024 dicyclomine (BENTYL) capsule 10 mg (COMPLETED) 10 mg, Oral, ONCE, 1 dose, On Thu08/08/24 at 1900 1920 (Given - Provid er: Danay Knutson RN) famotidine (PEPCID) 20 MG/2ML 20 mg in sodium chloride (PF) 0.9 % 10 mL injection (COMPLETED) 20 mg, IntraVENous, ONCE, 1 dose, On Thu08/08/24 at 1900, IV Push over minimum of 2 minutes - Dilute with 10 mL NS 192 (Given - Provid er: Danay Knutson RN) HYDROmorphone HCl PF (DILAUDID) injection 0.5 mg (COMPLETED) 0.5 mg, IntraVENous, ONCE, 1 dose, On Thu08/08/24 at 2000, If oral and IV narcotics ordered, use oral first and only use IV if oral is ineffective or cannot take oral. Do Not give oral and IV within 1 hour of each other unless specifically ordered. 2004 (Given - Provid er: Danay Knutson RN) ondansetron (ZOFRAN) injection 4 mg (COMPLETED) 4 mg, IntraVENous, ONCE, 1 dose, On Thu08/08/24 at 1900 1920 (Given - Provid er: Danay Knutson RN) sodium chloride 0.9 % bolus 1,000 mL (COMPLETED) 1,000 mL (17.6 mL/kg), IntraVENous, at 495.9 mL/hr, Administer over 121 Minutes, ONCE, On Thu08/08/24 at 1900, For 1 dose 1918 (New Bag - Prov ider: Danay Knutson RN)2032 (Stopped - Provider: Danay Knutson RN) Scheduled Medication Order 09/18/2024 09/19/2024 09/20/2024 HYDROmorphone HCl PF (DILAUDID) injection 0.5 mg (COMPLETED) 0.5 mg, IntraVENous, ONCE, 1 dose, On Thu09/20/24 at 1915, If oral and IV narcotics ordered, use oral first and only use IV if oral is ineffective or cannot take oral. Do Not give oral and IV within 1 hour of each other unless specifically ordered. 1923 (Given - Provid er: Montse Wolfe RN) HYDROmorphone HCl PF (DILAUDID) injection 0.5 mg (COMPLETED) 0.5 mg, IntraVENous, ONCE, 1 dose, On Thu09/20/24 at 2045, If oral and IV narcotics ordered, use oral first and only use IV if oral is ineffective or cannot take oral. Do Not give oral and IV within 1 hour of each other unless specifically ordered. 2036 (Given - Provid er: Montse Wolfe RN) lactated ringers bolus 1,000 mL (COMPLETED) 1,000 mL, IntraVENous, at 495.9 mL/hr, Administer over 121 Minutes, ONCE, On Thu09/20/24 at 1915, For 1 dose 1923 (New Bag - Prov ider: Montse Wolfe RN)2133 (Stopped - Provider: Joyce Soria RN) ondansetron (ZOFRAN) injection 4 mg (COMPLETED) 4 mg, IntraVENous, ONCE, 1 dose, On Thu09/20/24 at 1930 1923 (Given - Provid er: Montse Wolfe RN) Scheduled Medication Order 09/25/2024 09/26/2024 09/27/2024 HYDROmorphone HCl PF (DILAUDID) injection 0.5 mg (COMPLETED) 0.5 mg, IntraVENous, ONCE, 1 dose, On Thu09/27/24 at 1115, If oral and IV narcotics ordered, use oral first and only use IV if oral is ineffective or cannot take oral. Do Not give oral and IV within 1 hour of each other unless specifically ordered. 1226 (Given - Provid er: Mary Howard RN) lactated ringers bolus 1,000 mL 1,000 mL, IntraVENous, at 495.9 mL/hr, Administer over 121 Minutes, ONCE, On Thu09/27/24 at 1115, For 1 dose 1211 (New Bag - Prov ider: Marya Caballero RN)1412 (Stopped - Provider: Mary Howard RN) promethazine (PHENERGAN) injection 25 mg (COMPLETED) 25 mg, IntraMUSCular, ONCE, 1 dose, On Thu09/27/24 at 1115, Only to be given as IM injection. 1230 (Given - Provid er: Mary Howard RN) FOR RECORDS PERTAINING TO PATIENTS WHO ARE [...] BE BASED ON THE PRIMARY CLINICAL RECORDS. [employer] provides no warranty or guarantee of the accuracy or completeness of information in this document.
[2024-11-02] MEDS: 0.9 % SODIUM CHLORIDE 1,000 ML 1000 ML IV (20:26)
[2024-11-02] MEDS: HYDROMORPHONE HCL 1 MG/ML CARTRIDGE IV ×2 (20:26→21:45)
[2024-11-02 20:57] LABS: Hematocrit 41.0 % (36.0-48.0); Hemoglobin 13.8 g/dL (12.0-16.0); Immature Granulocytes Abs Auto 0.02 10^3/uL (0.00-0.03); Immature Granulocytes Pct Auto 0.2 % (0.0-0.5); Lymphocytes Absolute Auto 3.0 10^3/uL (1.2-3.8); Mean Corpuscular HGB Conc 33.7 g/dL (29.9-35.2); Mean Corpuscular Hemoglobin 33.7 pg (26.7-34.0); Mean Corpuscular Volume 100.0 fL (81.0-99.0); Platelet Count 267 10^3/uL (150-450); Red Blood Count 4.10 10^6/uL (4.20-5.40); White Blood Count 10.3 10^3/uL (4.0-11.0)
[2024-11-02 21:07] LABS: Alanine Aminotransferase 21 U/L (14-59); Albumin Globulin Ratio 1.1; Albumin Level 3.6 g/dL (3.4-5.0); Alkaline Phosphatase 136 U/L (46-116); Amylase 136 U/L (25-115); Anion Gap 9.5; Aspartate Amino Transferase 16 U/L (15-37); Blood Urea Nitrogen 11.0 mg/dL (7.0-18.0); Calcium 9.4 mg/dL (8.5-10.1); Carbon Dioxide 28.1 mmol/L (21.0-32.0); Chloride 106 mmol/L (98-107); Estimated GFR (African America >60 (>=60 mL/min/1.73m^2); Estimated GFR (Non-African Ame >60 (>=60 mL/min/1.73m^2); Globulin 3.3 g/dL; Glucose 110 mg/dL (74-106); Lipase 128.0 U/L (16.0-77.0); Potassium 3.6 mmol/L (3.5-5.1); Sodium 140 mmol/L (136-145); Total Protein 6.9 g/dL (6.4-8.2)
--- NOTE | 2024-11-02 21:23 | ED_ITS ---
HPI HPI - General Adult General Chief complaint: Abdominal Pain Stated complaint: Abdominal Pain Time Seen by Provider: 11/02/24 19:40 Source: patient Mode of arrival: walk-in History of Present Illness HPI narrative: Patient is a 54-year-old female with a past medical history of chronic pancreatitis that presents to the emergency department with complaints of epigastric abdominal pain that started to get worse today. She was able to eat but has been nauseous and vomited since and has had some diarrhea. She was last here on 10/13/2024 for the same complaints. Her amylase/lipase were not elevated at that time and patient was discharged home after a few doses of pain medication. Patient was able to get in with [facility] and actually saw a GI doctor today who started her on amitriptyline. She has not started taking it yet but states that has worked well for her in the past to control her pain. She does have a procedure scheduled for November to get a pain block done again and possible band dilation. She denies any fevers, night sweats, chills, chest pain, shortness of breath, abdominal pain, or back pain. She denies any recent trauma, falls, new surgery or procedures, or any other changes in her medical history since her ED visit approximately 3 weeks ago Related Data Home Medications ?Medication ?Instructions ?Recorded ?Confirmed dicyclomine 10 mg capsule 10 mg PO BID 09/13/24 famotidine 20 mg tablet 20 mg PO Q12H 09/13/2410/13 ondansetron 4 mg disintegrating 4 mg PO Q8H PRN nausea and vomiting 09/13/24 10/13/24 tablet Allergies Allergy/AdvReac Type Severity Reaction Status Date / Time haloperidol (From Haldol) Allergy Intermediate Hives Verified 10/13/24 17:26 ibuprofen (From Motrin) Allergy Intermediate Hives Verified 10/13/24 17:26 tramadol Allergy Intermediate Hives Verified 10/13/24 17:26 Penicillins Allergy Unknown Anaphylaxis Verified 10/13/24 17:26 morphine Allergy swells Verified 10/13/24 17:26 prochlorperazine (From Allergy Hives Verified 10/13/24 17:26 Compazine) ketorolac (From Toradol) AdvReac Severe Hives Verified 10/13/24 17:26 fentanyl AdvReac Intermediate Hives Verified 10/13/24 17:26 Opioid HPI Opioid Management Most Recent Opioid Data: Last Pain Scale 8 Today, 21:45 Last MAR Pain Assessment Today, 20:26 Review of Systems ROS Status of ROS 10 or more systems reviewed and unremark able except as noted in history and below PFSH PFS Medical History (Updated 11/02/24 @ 22:08 by ANKIT Santos) COPD (chronic obstructive pulmonary disease) ?J44.9 - Chronic obstructive pulmonary disease, unspecified (ICD-10) Chronic pancreatitis ?K86.1 - Other chronic pancreatitis (ICD-10) Smoker ?F17.200 - Nicotine dependence, unspecified, uncomplicated (ICD-10) History of gastrostomy tube placement Surgical History (Updated 04/03/23 @ 12:10 by Marni Farley) Hx of esophagogastroduodenoscopy ?Z98.890 - Other specified postprocedural states (ICD-10) H/O colonoscopy ?Z98.890 - Other specified postprocedural states (ICD-10) Hx of cholecystectomy ?Z90.49 - Acquired absence of other specified parts of digestive tract (ICD- 10) H/O: hysterectomy ?Z90.710 - Acquired absence of both cervix and uterus (ICD-10) Social History (Updated 04/03/23 @ 12:08 by Marni Farley) Smoking status: Current every day smoker Non-prescribed substance use: denies use Highest level of school completed/degree received: high school graduate Little interest or pleasure in doing things: not at all Feeling down, depressed, or hopeless: not at all Exam Narrative Exam Narrative: General: No distress but patient appears uncomfortable and is having a hard time sitting still on the ED cart, age-appropriate Skin: Warm, dry, no pallor. No rash. Head: Normocephalic, atraumatic. Neck: Supple, non-tender. Eye: Pupils are equal, round and EOMI. No scleral icterus. Ears, Nose, Mouth, and Throat: No nasal mucosal hypertrophy. Oral mucosa is moist, no posterior oropharynx erythema, uvula is mid-line Cardiovascular: Regular Rate and Rhythm without murmur, gallop or rub. Respiratory: No accessory muscle use or respiratory distress. Lungs are clear to auscultation, no wheezing, rales or rhonchi Chest Wall: no tenderness Back: No midline thoracic or lumbar vertebral tenderness. Musculoskeletal: Full ROM of all extremities, no calf or popliteal tenderness GI: Abdomen is soft, non-distended, tender to palpation in the epigastric area. No masses appreciated. No rebound, guarding, or rigidity noted. Neurological: A&O x4. No cranial nerve dysfunction observed. No truncal ataxia. Moves all extremities. Sensation intact. Psychiatric: Cooperative and interactive. Normal mood and affect. Constitutional Vital Signs, click to edit/add: Last Vital Signs Temp 98 F 11/02/24 19:33 Pulse 98 H 11/02/24 19:33 Resp 18 11/02/24 19:33 BP 131/93 H 11/02/24 19:33 Pulse Ox 97 11/02/24 19:33 O2 Del Method Room Air 11/02/24 19:33 Course Reevaluation(s) Reevaluation #1: On reexamination patient appears more comfortable after 1 mg of Dilaudid and 4 mg of Zofran. She states that her pain is creeping up now. Labs are pending. Another 1 mg of Dilaudid ordered. Time: 21:23 Vital Signs Vital signs: Vital Signs Temperature 98 F 11/02/24 19:33 Pulse Rate 98 H 11/02/24 19:33 Respiratory Rate 18 11/02/24 19:33 Blood Pressure 131/93 H 11/02/24 19:33 Pulse Oximetry 97 11/02/24 19:33 Oxygen Delivery Method Room Air 11/02/24 19:33 Temperature 98 F 11/02/24 19:33 Pulse Rate 98 H 11/02/24 19:33 Respiratory Rate 18 11/02/24 19:33 Blood Pressure 131/93 H 11/02/24 19:33 Pulse Oximetry 97 11/02/24 19:33 Oxygen Delivery Method Room Air 11/02/24 19:33 Medical Decision Making MDM Narrative Medical decision making narrative: 54-year-old female presented to the emergency department with complaints of a flareup in her chronic pancreatitis. Patient was last seen here in the ED 10/13/2024 where labs were largely within normal limits and pain was controlled with a few doses of Dilaudid. Patient did see a GI specialist from [facility] today and was given a new medication, amitriptyline, she has not started taking this yet. It has worked well for her in the past. On arrival she does appear uncomfortable and has a hard time sitting still on the ED cart, vitals are stable. Patient is afebrile. IV placed. 1 L normal saline started. CBC, BMP, liver panel, amylase/lipase ordered. 1 mg Dilaudid and Zofran 4 mg given. CBC WNL, BMP WNL, liver panel elevated but at her baseline. Amylase/lipase mildly elevated at 136/128 respectively. Patient Feeling much better after first dose of Dilaudid, nausea has resolved. She states that her pain is starting to creep back up to an 8 out of 10. 1 mg Dilaudid reordered. Patient feeling better after second dose, abdomen remains soft and mildly tender in the epigastric area, no rebound tenderness, no peritoneal signs. No distention. I discussed discharge to home and patient is agreeable as she just wants to go to sleep in her bed, but was unable to do so secondary to the pain she had reported when she got here. Patient was discharged in good condition. Plan is for her to see GI for another procedure and pain block in November. She can return to the ER if she is having any new or worsening symptoms. Patient voiced understanding Differential Diagnosis Differential Diagnosis: Chronic pancreatitis Medical Records Medical records reviewed: Yes I reviewed the patient's medical records Lab Data Lab results reviewed: Yes I reviewed the patient's lab results Labs: Lab Results 11/02/24 Range/Units 20:34 WBC 10.3 (4.0-11.0) 10^3/uL RBC 4.10 L (4.20-5.40) 10^6/uL Hgb 13.8 (12.0-16.0) g/dL Hct 41.0 (36.0-48.0) % MCV 100.0 H (81.0-99.0) fL MCH 33.7 (26.7-34.0) pg MCHC 33.7 (29.9-35.2) g/dL RDW 12.8 (11.0-15.0) % Plt Count 267 (150-450) 10^3/uL MPV 9.7 (9.5-13.5) fL Neut % (Auto) 59.4 (43.0-75.0) % Lymph % (Auto) 28.7 (20.5-60.0) % Taney % (Auto) 9.6 (1.7-12.0) % Eos % (Auto) 1.3 (0.9-7.0) % Baso % (Auto) 0.8 (0.2-2.0) % Neut # (Auto) 6.1 (1.4-6.5) 10^3/uL Lymph # (Auto) 3.0 (1.2-3.8) 10^3/uL Taney # (Auto) 1.0 H (0.3-0.8) 10^3/uL Eos # (Auto) 0.1 (0.0-0.7) 10^3/uL Baso # (Auto) 0.1 (0.0-0.1) 10^3/uL Abs Immat Gran (auto) 0.02 (0.00-0.03) 10^3/uL Imm/Tot Granulo (auto) 0.2 (0.0-0.5) % Sodium 140 (136-145) mmol/L Potassium 3.6 (3.5-5.1) mmol/L Chloride 106 (98-107) mmol/L Carbon Dioxide 28.1 (21.0-32.0) mmol/L Anion Gap 9.5 BUN 11.0 (7.0-18.0) mg/dL Creatinine 0.80 (0.55-1.02) mg/dL Est GFR ( Amer) >60 (>=60 mL/min/1.73m^2) Est GFR (Non-Af Amer) >60 (>=60 mL/min/1.73m^2) BUN/Creatinine Ratio 13.8 Glucose 110 H (74-106) mg/dL Calcium 9.4 (8.5-10.1) mg/dL Total Bilirubin 0.1 L (0.2-1.0) mg/dL Direct Bilirubin <0.1 (0.0-0.2) mg/dL AST 16 (15-37) U/L ALT 21 (14-59) U/L Alkaline Phosphatase 136 H (46-116) U/L Total Protein 6.9 (6.4-8.2) g/dL Albumin 3.6 (3.4-5.0) g/dL Globulin 3.3 g/dL Albumin/Globulin Ratio 1.1 Amylase 136 H (25-115) U/L Lipase 128.0 H (16.0-77.0) U/L Discharge Plan Discharge Chief Complaint: Abdominal Pain Clinical Impression: Chronic pancreatitis Patient Disposition: Home, Self-Care Time of Disposition Decision: 22:08 Condition: Good Mode of Transportation: Private Vehicle Prescriptions / Home Meds: No Action famotidine 20 mg tablet 20 mg PO Q12H ondansetron 4 mg tablet,disintegrating 4 mg PO Q8H PRN (Reason: nausea and vomiting) dicyclomine 10 mg capsule 10 mg PO BID Print Language: Chinese Additional Instructions: Continue to follow-up with your GI provider. If you experience any new or worsening symptoms you can return to the emergency department for evaluation. Referrals: [facility] [Primary Care Provider, Unknown] - 1 week
[2024-11-02 22:19] VITALS: BP 122/78; PULSE 90; O2SAT 95
== END 2024-11-02 22:24 | disposition home or self-care (01) ==
PROVIDERS: Physician Assistant; Emergency Provider Emergency Medicine
DX: K86.1 Other chronic pancreatitis (principal); Z90.49 Acquired absence of other specified parts of digestive tract; Z90.710 Acquired absence of both cervix and uterus; F17.200 Nicotine dependence, unspecified, uncomplicated
CPT/HCPCS: 36415; 80048; 80076; 82150; 83690; 85025; 96361; 96374; 96375; 96376; 99285; J1171; J2405

== ENCOUNTER 2024-12-04 19:14 | Emergency (ER) | payer OTHER, SELFPAY ==
--- OUTSIDE RECORDS SUMMARY | 2024-11-25 00:40 | XMS_ITS ---
Author Name Auto Generated Organization OHIP Support Name Relationship Address Phone Justino Arciniega Next of Kin [address] [place] [address] + JUSTINO ARCINIEGA Next of Kin [address] [place] [address] Unavailable Justino Greenfield Next of Kin [address] [place] [address] + JUSTINO ARCINIEGA Next of Kin [address] [place] [address] Unavailable JUSTINO ARCINIEGA Next of Kin [address] [place] [address] Unavailable JUSTINO ARCINIEAG Next of Kin [address] [place] [address] Unavailable JUSTINO ARCINIEGA Next of Kin [address] [place] [address] Unavailable JUSTINO ARCINIEGA Next of Kin [address] [place] [address] Unavailable JUSTINO ARCINIEGA Next of Kin [address] [place] [address] Unavailable JUSTINO ARCINIEGA Next of Kin [address] [place] [address] Unavailable JUSTINO ARCINIEGA Next of Kin [address] [place] [address] Unavailable JUSTINO ARCINIEGA Next of Kin [address] [place] [address] Unavailable CHIOMA RAINEY Next of Kin Unknown Unavailflor[place] e JOSE DE JESUS LOPEZ Next of Kin Unknown [phone] JOSE DE JESUS LOPEZ Next of Kin Unknown [phone] JONAH ARCINIEGA Next of Kin Unknown Unavailable JUSTINO ARCINIEGA Next of Kin [address] [place] [address] + JUSTINO ARCINIEGA Next of Kin [address] [place] [address] + Care Team Providers Care Operations Associate Name Role Phone STEVE ELLA Silveira Attending Unavailflorida cardoza ELLA WILSON Referring Unavailabl e [facility], OTHER Primary Care Un available Andrew Ponce Attending Unavailable Andrew Ponce Admitting Unavailable NON STAFF Primary Care Unavailable Nicole Posadas Attending Unavailable Nicole Posadas Admitting Unavailable NON STAFF Primary Care Unavailable SERVICES, [facility] Unava ilable STEPHANIE MAHMOOD Attending Unavailable SERVICES, [facility] Unava ilable TABITHA NEWELL Attending Unavailable SERVICES, [facility] Unava ilable AGUSTIN MICHAEL Attending Unavailab le SERVICES, [facility] Unava ilable VIVIAN TRINH Attending Unavailable SERVICES, [facility] Unava ilable EMILIE JARVIS Attending Unavailable SERVICES, [facility] Unava ilable TABITHA NEWELL Attending Unavailable SERVICES, [facility] Unava ilable JYOTHI TRINH Attending Unavailable SERVICES, [facility] Unava ilable TABITHA NEWELL Attending Unavailable SERVICES, [facility] Unava ilable TABITHA NEWELL Attending Unavailable SERVICES, [facility] Unava ilable STEPHANIE MAHMOOD Attending Unavailable SERVICES, [facility] Unava ilable YANNI PARRA Attending Unavailable SERVICES, [facility] Unava ilable TABITHA NEWELL Attending Unavailable Carissa, Darrel Attending Unavailable Gennari Geno Admitting Unavailable Gennari, Geno Attending Unavailable Gennari, Geno Admitting Unavailable Gennari, Geno Attending Unavailable Gennari, Geno Admitting Unavailable Tate GUIDO Attending Unavailable Carissa, Darrel Attending Unavailable Ghencian, Ish Attending Unavailable Carissa, Darrel Attending Unavailable Carissa, Darrel Attending Unavailable Ghencian, Ish Attending Unavailable Carissa, Darrel Attending Unavailable Loki Ernandez Attending Unavailable CINTASHA OLSON Attending Unavailable CINTASHA OLSON Attending Unavailable TIMA ESCALERA Attending Unavailable RAJI GILLIAM Attending Unavailable RAJI GILLIAM Admitting Unavailable LAVERN, LINDSEY Attending Unavailable SELF Referring Unavailable GEOVANNI OSULLIVAN Primary Care Unavailable JOSSE STOVALL Attending Unavailable GEOVANNI OSULLIVAN Primary Care Unavailable LINDSEY WILLARD Referring Unavailable PROBLEMS DATE TYPE CONDITION / CODE ATTENDING STATUS [facility] 11/02/2024 Active Chronic pancreatitis, unspecified pancreatitis type (HCC) / K86.1(ICD-10) LAVERN [facility] 11/02/2024 Active 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) LAVERN [facility] 11/02/2024 Active Epigastric pain / R10.13(ICD-10) LAVERN [facility] 11/02/2024 Active Loose stools / R19.5(ICD-10) LAVERN [facility] 11/02/2024 Active Heartburn / R12(ICD-10) LAVERN, [facility] 11/02/2024 Active Tobacco use / Z72.0(ICD-10) LAVERN [facility] 10/28/2024 Unknown Other chronic pancreatitis / K86.1(ICD-10) Andrew Ponce [facility] 10/19/2024 Unknown Generalized abdominal pain / R10.84(ICD-10) Nicole Posadas [facility] 10/19/2024 Unknown Unspecified abdominal pain / R10.9(ICD-10) Nicole Posadas [facility] 09/27/2024 Unknown Nausea with vomiting, unspecified / R11.2(ICD-10) TASHA ZAMORA [facility] 09/20/2024 Unknown Other chronic pancreatitis (HCC) / K86.1(ICD-10) TASHA ZAMORA [facility] 09/05/2024 Unknown Viral intestinal infection, unspecified / A08.4(ICD-10) TABITHA NEWELL [facility] 07/20/2024 Unknown Periapical absce ss without sinus / K04.7(ICD-10) JYOTHI TRINH [facility] 07/20/2024 Unknown Other specified disorders of teeth and supporting structures / K08.89(ICD-10) JYOTHI TRINH [facility] 07/20/2024 Unknown Dental Pain / FREETEXT(AOF) XIN TRINHH [facility] 06/27/2024 Unknown Nausea / FREETEXT(AOF) TABITHA NEWELL [facility] 06/27/2024 Unknown Diarrhea / FREETEXT(AOF) TABITHA NEWELL [facility] 06/15/2024 Unknown 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29(ICD-10) TABITHA NEWELL [facility] 12/29/2023 Unknown Epigastric pain / R10.13(ICD-10) STEPHANIE MAHMOOD [facility] 12/29/2023 Unknown Abdominal Pain / FREETEXT(AOF) STEPHANIE MAHMOOD [facility] 12/29/2023 Unknown Abdominal Pain / UNK(Unknown) STEPHANIE MAHMOOD [facility] PROCEDURES No Procedure Records Found RESULTS DISCHARGE NOTE-NURSING Observed: 025 10:23 AM Status: F Source: [facility] Discharge Note-Nursing CHIOMA ARCINIEGA :1970 Visit Date:11/24/2024 Inpatient Discharge Instructions Your Care Team Admitting Physician - Geno Martin MD Reason for Your Visit Nausea, vomitting, abdominal pain Your Diagnosis Acute on chronic pancreatitis Leukocytosis History of alcohol use Smoker Abdominal pain Abdominal problem Nausea This Is Your Medications List acetaminophen-hydrocodone (Binford 325 mg-5 mg oral tablet) amitriptyline (amitriptyline 25 mg Tab) famotidine (Pepcid 20 mg Tab) ondansetron (ondansetron 4 mg Dis Tab) pancrelipase (Creon 24,000 units oral delayed release capsule) pantoprazole (Pantoprazole [address] Tab) promethazine (promethazine 25 mg Tab) Discharge Vitals Temperature (Oral) 37.1 ???C Heart Rate (Monitored) 76 Respiratory Rate 16 Blood Pressure 134/76 What to do next Instructions From Your Doctor Event Name Event Result Discharge Activity Ambulate as tolerated, Expect mild pain, Activity as tolerated Discharge Diet(s) Fat Modified- Low cholesterol, Drink liquids and eat a light meal Pending Diagnostic Test Results None New Follow Up Appointments after Discharge Follow Up with Follow up with Health Department When: Within 1 to 2 weeks, only if needed Comments: Call for followup appointment Follow Up with [facility] NONE When: In 0 days Where: [place] Medications What How Much When Why Instructions Next Dose New acetaminophen-hydrocodone (Binford 325 mg-5 mg oral tablet) 1 Tablets By Mouth Every 6 hours as needed for for pain Acute on chronic pancreatitis Duration: 5 Days Pickup at [facility] Take as needed every 6 hours for pain New pantoprazole (Pantoprazole [address] Tab) 1 Tablets By Mouth Every day Duration: 30 Days Pickup at [email or web address] 11/30 @9am Unchanged amitriptyline (amitriptyline 25 mg Tab) 1 Tablets By Mouth Once a day (at bedtime) 9pm Unchanged famotidine (Pepcid 20 mg Tab) 1 Tablets By Mouth Every day as needed for Nausea/Vomiting Take as needed for nausea or vomiting Unchanged ondansetron (ondansetron 4 mg Dis Tab) 1 Tablets By Mouth Every 8 hours as needed for Nausea/Vomiting Take as needed for nausea or vomiting Unchanged pancrelipase (Creon 24,000 units oral delayed release capsule) 1 Capsules By Mouth Every day 11/30 @9am Unchanged promethazine (promethazine 25 mg Tab) 1 Tablets By Mouth 3 times a day 2pm and 9pm Pharmacy Information [facility]: [address] [place] [id number] [phone] Test Results CBC BMP WBC: 8.2 E9/L (11/27/24 05:12:00) Glucose Lvl: 99 mg/dL (11/28/24 06:25:00) RBC: 3.5 E12/L Low (11/27/24 05:12:00) BUN: 5 mg/dL (11/28/24 06:25:00) HGB: 11.5 gm/dL Low (11/27/24 05:12:00) Creatinine: 0.7 mg/dL (11/28/24 06:25:00) Hct: 33.9 % Low (11/27/24 05:12:00) BUN/Creat Ratio: 7 Low (11/28/24 06:25:00) MCV: 96.5 fL (11/27/24 05:12:00) Sodium Lvl: 138 mmol/L (11/28/24 06:25:00) MCH: 32.8 pg (11/27/24 05:12:00) Potassium Lvl: 3.9 mmol/L (11/28/24 06:25:00) MCHC: 34 gm/dL (11/27/24 05:12:00) Chloride: 110 mmol/L (11/28/24 06:25:00) RDW: 12.9 % (11/27/24 05:12:00) CO2: 24 mmol/L (11/28/24 06:25:00) Platelet: 225 E9/L (11/27/24 05:12:00) AGAP: 8 mEq/L (11/28/24 06:25:00) MPV: 8 fL (11/27/24 05:12:00) Calcium Lvl: 8.5 mg/dL Low (11/28/24 06:25:00) Allergies haloperidol (Swelling, Hives) morphine (Hives, Swelling) penicillin (Swelling) traMADol (Swelling, Hives) Compazine (Hives) Toradol (Swelling) fentaNYL (Hives) ibuprofen (Hives, Swelling) Problems Ongoing - Any problem that you are currently receiving treatment for. Smoker Education Materials Acute Pancreatitis Acute pancreatitis happens when there is sudden swelling and irritation of the pancreas. The pancreas is a gland in your body that helps to control blood sugar. This gland also helps to digest food. This condition can last a few days and cause serious problems. Some problems can be life-threatening. The lungs, heart, and kidneys may stop working. What are the causes? Causes may include: ??? Heavy alcohol use. ??? Drug use. ??? Gallstones. ??? An abnormal growth of tissue (tumor) in the pancreas. Other causes include: ??? Some medicines or some chemicals. ??? Diabetes or infection. ??? High levels of a type of fat in your blood. ??? High levels of calcium in your blood. ??? Damage caused by: ? An accident. ? The poison (venom) from a scorpion sting. ??? Belly (abdominal) surgery. ??? The body's defense system (immune system) attacking the pancreas (autoimmune pancreatitis). ??? Genes that are passed from parent to child (inherited). Sometimes, the cause is not known. What are the signs or symptoms? Pain in the upper belly that may be felt in the back. The pain may be very bad. It often gets worse after you eat. ??? A tender and swollen belly. ??? Feeling like you may vomit (nausea) and vomiting. ??? Fever. How is this treated? A stay in the hospital, in many cases. ??? Pain medicine. ??? Fluid through an IV tube. ??? Placing a tube in the stomach to take out the stomach contents. This also helps you stop vomiting. ??? Not eating until you vomit less. ??? Antibiotic medicines, if you have an infection. ??? Steroid medicines, if your problem is caused by attacks on your body's own tissues by your defense system. ??? Surgery, if your problem is caused by gallstones or other blockage. ??? Treating other health problems that may be the cause. Follow these instructions at home: Medicines ??? Take bxlg-siz-ektwbto and prescription medicines only as told by your doctor. ??? If you were prescribed an antibiotic medicine, take it as told by your doctor. Do not stop taking it even if you start to feel better. ??? If told, take steps to prevent problems with pooping (constipation). You may need to: ? Take medicines. You will be told what medicines to take. ? Eat foods that are high in fiber. These include beans, whole grains, and fresh fruits and vegetables. ? Limit foods that are high in fat and sugar. These include fried or sweet foods. ??? Ask your doctor if you should avoid driving or using machines while you are taking your medicine. Eating and drinking ??? Follow instructions from your doctor about what to eat and drink. You may need to: ? Avoid alcohol. ? Eat foods that do not have a lot of fat in them. ??? Eat small meals often. Do not eat big meals. ??? Drink enough fluid to keep your pee (urine) pale yellow. ??? Do not drink alcohol if it caused your condition. General instructions ??? Do not smoke or use any products that contain nicotine or tobacco. If you need help quitting, ask your doctor. ??? Get plenty of rest. ??? Check your blood sugar at home if your doctor tells you to. ??? Keep all follow-up visits. Contact a doctor if: ??? You do not get better as fast as expected. ??? Your symptoms get worse. ??? You have new symptoms. ??? You have pain or weakness that lasts a long time. ??? You keep feeling like you may vomit. ??? You get better and then pain comes back. ??? You have a fever. Get help right away if: ??? You vomit every time you eat or drink. ??? Your pain gets very bad. ??? Your skin or the white parts of your eyes turn yellow. ??? You have sudden swelling in your belly. ??? You feel dizzy or you faint. ??? Your blood sugar is high (over 300 mg/dL). ??? You vomit blood. These symptoms may be an emergency. Do not wait to see if the symptoms will go away. Get help right away. Call 911. Summary ??? Acute pancreatitis happens when there is sudden swelling and irritation of the pancreas. ??? This condition is often caused by heavy alcohol use, drug use, or gallstones. ??? You will likely have to stay in the hospital for treatment. This information is not intended to replace advice given to you by your health care provider. Make sure you discuss any questions you have with your health care provider. Document Revised: 01/14/2022 Document Reviewed: 01/14/2022 Elsevier Patient Education ??? 2023 [employer] Common Emergency Awareness Tips IS IT A STROKE? Act FAST and Check for these signs: FACE Does the face look uneven? ARM Does one arm drift down? SPEECH Does their speech sound strange? TIME Call at any sign of stroke Heart Attack Signs Chest discomfort: Most heart attacks involve discomfort in the center of the chest and lasts more than a few minutes, or goes away and comes back. It can feel like uncomfortable pressure, squeezing, fullness or pain. Discomfort in upper body: Symptoms can include pain or discomfort in one or both arms, back, neck, jaw or stomach. Shortness of breath: With or without discomfort. Other signs: Breaking out in a cold sweat, nausea, or lightheaded. Remember, MINUTES DO MATTER. If you experience any of these heart attack warning signs, call to get immediate medical attention! Patient Survey You may receive a survey in the mail asking you about your stay with us. We want to hear from you, please share your experience with us by completing your survey. Thank you for choosing [facility] Award Nomination The FILOMENA (Diseases Attacking the Immune SYstem) Award is an international recognition program that honors and celebrates the skillful, compassionate care nurses provide every day. Anyone who experiences or observes amazing care being provided by a nurse is encouraged to submit a nomination. To nominate your nurse, use your smart phone to scan the QR code below. Patient Portal You may access all of your results and other medical record information on our secure patient portal. If you are not signed up for this yet, please contact [employer] at [phone] to get signed up today. Language Information Language assistance services are available as needed. Patient Name: JANUSZCHIOMA I have received these discharge instructions and my questions have been answered. 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 Acute on chronic pancreatitis, 11/24/2024 2. Leukocytosis, 11/25/2024 3. History of alcohol use, 11/25/2024 4. Smoker, 11/25/2024 Hospital Course 54-year-old female former chronic alcohol drinker with chronic pancreatitis presented with complaints of generalized abdominal pain associated with nausea. She was subsequently admitted to [facility] with acute on chronic pancreatitis with leukocytosis. She was treated with IV fluid, IV Dilaudid, IV antiemetic and IV pantoprazole. Patient had improvement in her symptoms and was able to tolerate oral feeds. Nausea stopped as well as her abdominal pain and her diet was advanced and she tolerated it well. Patient's overall condition improved and she was anxious to be discharged home. She was seen prior to discharge and remained in an improved and stable condition for discharge and was subsequently discharged home. She will follow-up with her primary care physician accordingly. Discharge time: 32 minutes. I spent 32 minutes in seeing, evaluating, educating patient on her conditions, coordinating care plan, medication reconciliation, speaking with nursing staff, case management. Discharge medications: Binford 325/5 mg every 6 hours as needed. Pantoprazole 40 mg daily. Physical Exam Vitals & Measurements T: 37.1 ???C(Oral) TMIN: 36.3 ???C(Oral) TMAX: 37.4 ???C(Oral) HR: 76(Monitored) RR: 16 BP: 134/76 SpO2: 94% General: alert, no acute distress Skin: warm, dry Head: no trauma, normocephalic Neck: Trachea midline, no adenopathy, no tenderness Eye: normal conjunctiva, sclera clear ENMT: TM's clear, oral mucosa moist, no pharyngeal erythema or exudate Cardiovascular: regular rate and rhythm, normal peripheral perfusion Respiratory: Lungs CTA, respirations non labored Chest wall: no deformity. Gastrointestinal: soft, non distended, no tenderness, no guarding. Bowel sounds intact. Back: No tenderness, Normal ROM, Normal alignment. Extremities: no deformity, no trauma Neurological: oriented x 4, LOC appropriate for age, CN II-XII intact, motor strength equal & normal bilaterally, sensation equal & normal bilaterally, speech normal Psychiatric: cooperative, affect appropriate for age, normal judgement, normal psychiatric thoughts. Discharge Plan Patient Discharge Condition Stable Discharge Disposition Discharge To, Anticipated II - Home independently Discharged to - Home independently Transported by, Anticipated - Family Home Discharge Diet Discharge Diet(s): Fat Modified- Low cholesterol, Drink liquids and eat a light meal (11/29/24 09:02:00) Discharge Medication List Prescriptions Binford 325 mg-5 mg oral tablet, 1 tab(s), Oral, q6hr, PRN Pantoprazole [address] Tab, 40 mg= 1 tab(s), Oral, Daily promethazine 25 mg Tab, 25 mg= 1 tab(s), Oral, TID Home amitriptyline 25 mg Tab, 25 mg= 1 tab(s), Oral, Once a day (at bedtime) Creon 24,000 units oral delayed release capsule, 1 cap(s), Oral, Daily ondansetron 4 mg Dis Tab, 4 mg= 1 tab(s), Oral, q8hr, PRN Pepcid 20 mg Tab, 20 mg= 1 tab(s), Oral, Daily, PRN Follow-up With When Contact Information Follow up with Health Department Within 1 to 2 weeks, only if needed Additional Instructions: Call for followup appointment XXXX NONE In 0 days [place] Additional Instructions: Patient Education Acute Pancreatitis, Ozek-ja-Odxb Result Comment: Electronical ly Signed By: SANDRA ALEXANDER, [email or web address]\.[email or web address]\Date and Time Signed: 11/29/24 09:57 EDT INPATIENT PATIENT SUMMARY Observed: 11/08 9:03 AM Status: F Source: [facility] Inpatient Patient Summary [place] [id number] Patient Discharge Instructions PERSON INFORMATION Name: CHIOMA ARCINIEGA Date of : 1970 Current Date: 11/29/2024 09:03:16 PHYSICIANS Admitting Physician: Geno Martin MD Primary Care Physician: GAGANDEEP IQBAL PCP Phone Number: Comment: Discharge Diagnosis: 1:Acute on chronic pancreatitis; 2:Leukocytosis; 3:History of alcohol use; 4:Smoker Condition at Discharge: Improved CHIOMA ARCINIEGA has been given the following list of follow-up instructions, prescriptions, and patient education materials: PATIENT FOLLOW-UP INFORMATION Diet: Fat Modified- Low cholesterol, Drink liquids and eat a light meal Discharge Activity: Ambulate as tolerated, Expect mild pain, Activity as tolerated Discharge Restrictions: Wound Care Instructions: Remove Your Dressing In Days Call Your Doctor For: IF UNABLE TO CONTACT YOUR PHYSICIAN AND YOU FEEL IT IS AN EMERGENCY, GO TO THE NEAREST EMERGENCY ROOM OR CALL 911 Home Treatment: Devices/Equipment: None Special Services: Additional Instructions: Primary Care Physician to provide the following pending test results: None Follow up: With: Address: When: Follow up with Health Department Within 1 to 2 weeks, only if needed Comments: Call for followup appointment With: Address: When: [facility]ONE , [place] In the event that this physician does not participate in your insurance network, please consult with your insurance company to find a nearby participating provider. Comment: JANUSZ Christopher MICHELLE, have received the attached patient education materials/instructions and have verbalized understanding: Patient Signature Date Clinican/Nurse Signature Date HERE ARE THE MEDICATION CHANGES THAT OCCURRED DURING YOUR HOSPITAL STAY New Medications [facility], [address] [place], [place] [id number], [phone] acetaminophen-hydrocodone (Binford 325 mg-5 mg oral tablet) 1 Tablets By Mouth every 6 hours as needed for pain for 5 Days. Refills: 0. Last Dose: Next Dose: pantoprazole (Pantoprazole [address] Tab) 1 Tablets By Mouth every day for 30 Days. Refills: 0. Last Dose: Next Dose: Medications to Continue with No Changes Other Medications amitriptyline (amitriptyline 25 mg Tab) 1 Tablets By Mouth once a day (at bedtime). Last Dose: Next Dose: famotidine (Pepcid 20 mg Tab) 1 Tablets By Mouth every day as needed Nausea/Vomiting. Last Dose: Next Dose: ondansetron (ondansetron 4 mg Dis Tab) 1 Tablets By Mouth every 8 hours as needed Nausea/Vomiting. Last Dose: Next Dose: pancrelipase (Creon 24,000 units oral delayed release capsule) 1 Capsules By Mouth every day. Last Dose: Next Dose: promethazine (promethazine 25 mg Tab) 1 Tablets By Mouth 3 times a day. Refills: 0. Last Dose: Next Dose: Comment: MEDICATION LIST PROVIDED FOR YOU IS A LIST OF YOUR CURRENT MEDICATIONS. PLEASE CARRY THIS WITH YOU AT ALL TIMES. acetaminophen-hydrocodone (Binford 325 mg-5 mg oral tablet) 1 Tablets By Mouth every 6 hours as needed for pain for 5 Days. Refills: 0. amitriptyline (amitriptyline 25 mg Tab) 1 Tablets By Mouth once a day (at bedtime). famotidine (Pepcid 20 mg Tab) 1 Tablets By Mouth every day as needed Nausea/Vomiting. ondansetron (ondansetron 4 mg Dis Tab) 1 Tablets By Mouth every 8 hours as needed Nausea/Vomiting. pancrelipase (Creon 24,000 units oral delayed release capsule) 1 Capsules By Mouth every day. pantoprazole (Pantoprazole [address] Tab) 1 Tablets By Mouth every day for 30 Days. Refills: 0. promethazine (promethazine 25 mg Tab) 1 Tablets By Mouth 3 times a day. Refills: 0. Pharmacy Information: Comment: PATIENT EDUCATION INFORMATION Instructions: Medication Leaflets: You may receive a survey from [employer] asking you to rate your care experience. Your feedback is important and will help us understand what we do well and how we can improve the quality of care we provide to you, your loved ones and our community. It???s an honor to serve you. Thank you for choosing [facility] INPATIENT CLINICAL SUMMARY Observed: 9:03 AM Status: F Source: [facility] Inpatient Clinical Summary [place] [address] Clinical Summary Person Information: Name: CHIOMA ARCINIEGA Age: 54 Years : 1970 Sex: Female PCP: NONE, XXXX Marital Status: Race: White Ethnicity: Non- or Language: Armenian Visit Id: Visit Reason: Abdominal problem; Nausea; Abdominal pain; SEVERE ABD PAIN, N/V Speciality: Acuity: Enc Type: Inpatient Med Service: Medical Arrival: 11/24/2024 20:08:05 Discharge: Dispo Type: Admitted as IP to this [facility] Address: [address] [place] [address] [id number] Provider Notes: Diagnosis: 1:Acute on chronic pancreatitis; 2:Leukocytosis; 3:History of alcohol use; 4:Smoker Problems Active Smoker Smoking Status: Current Every Day Smoker Functional Status: Sensory Deficits: History of Falls: Mobility Assistance Prior to Admission: ADLs: Independent Current Level of Assistance for Self-Care/Mobility: Cognitive Status: Oriented x 3 Allergies penicillin (Swelling) morphine (Swelling) (Hives) haloperidol (Swelling) (Hives) Toradol (Swelling) traMADol (Swelling) (Hives) ibuprofen (Swelling) (Hives) fentaNYL (Hives) Compazine (Hives) Measurements: Height: 157.48 cm Weight: 59.4 kg Blood Pressure: 134 mmHg / 76 mmHg BMI: 21.77 kg/m2 Procedures No Procedures Performed or Documented Immunizations No Immunizations Documented This Visit Final Med List: acetaminophen-hydrocodone (Binford 325 mg-5 mg oral tablet) 1 Tablets By Mouth every 6 hours as needed for pain for 5 Days. Refills: 0. amitriptyline (amitriptyline 25 mg Tab) 1 Tablets By Mouth once a day (at bedtime). famotidine (Pepcid 20 mg Tab) 1 Tablets By Mouth every day as needed Nausea/Vomiting. ondansetron (ondansetron 4 mg Dis Tab) 1 Tablets By Mouth every 8 hours as needed Nausea/Vomiting. pancrelipase (Creon 24,000 units oral delayed release capsule) 1 Capsules By Mouth every day. pantoprazole (Pantoprazole [address] Tab) 1 Tablets By Mouth every day for 30 Days. Refills: 0. promethazine (promethazine 25 mg Tab) 1 Tablets By Mouth 3 times a day. Refills: 0. Care Team Members: Attending Physician: Geno Martin MD Consulting Physician: Referring Physician: Follow up: With: Address: When: Follow up with [facility] Within 1 to 2 weeks, only if needed Comments: Call for followup appointment With: Address: When: XXXX NONE , [place] Patient Education Information: INTERDISCIPLINARY NOTE - DWAYNE E COLORIST FORMULATOR Observed: 11/28/2024 12:17 PM Status: F Source: [facility] Interdisciplinary Note - Dwayne e Architectural Technologist CM followed up with patient at bedside. Patient is form home with and family. Patient continues to deny any additional discharge needs and will transport home at discharge. CM rounded with attending Dr Guido and possible DC tomorrow pending progress. CM will continue to follow. Result Comment: Electronical ly Signed By: Lara Wilson\Date and Time Signed: 11/28/24 12:19 EDT PROGRESS NOTE-PHYSICIAN Observed: 2024 10:41 AM Status: F Source: [facility] Progress Note-Physician Assessment/Plan 54-year-old female former chronic alcohol drinker with chronic pancreatitis presented with complaints of generalized abdominal pain associated with nausea and was admitted with acute on chronic pancreatitis with leukocytosis. 1. Acute on chronic pancreatitis (K85.90: Acute pancreatitis without necrosis or infection, unspecified) Acute on chronic pancreatitis/present on admission. Lipase trended down. Improving. Treated with IV fluids, IV analgesics and antiemetics. Will reduce Dilaudid to every 4 hours as needed. Started patient on pantoprazole. Started patient on clear diet and advance as tolerated. Ordered: [facility] Hospital Care/Day Moderate 35 Minutes 92291 2. Leukocytosis (D72.829: Elevated white blood cell count, unspecified) Resolved. Ordered: [facility] Hospital Care/Day Moderate 35 Minutes 15746 3. History of alcohol use (Z87.898: Personal history of other specified conditions) Historical. Patient has been sober for 12 to 13 years. Ordered: [facility] Hospital Care/Day Moderate 35 Minutes 19942 4. Smoker (F17.200: Nicotine dependence, unspecified, uncomplicated) Recommend cessation. Disposition: Home soon in AM. I discussed the diagnosis and plan of care with the patient at the bedside. Moderate level of MDM based on addressing above issues. This documentation was transcribed using voice recognition software. Several attempts were made to ensure accuracy. However inadvertent computerized fiber heel piece shaper errors may be present. Tate Guido. Hospitalist. Ordered: [facility] Hospital Care/Day Moderate 35 Minutes [id number] Orders: HYDROmorphone, 1 mg = 1 mL, Injection, IV Push, q4hr PRN Pain, Routine, Start date 11/28/24 10:37:00 EDT, 11/28/24 10:37:00 EDT pantoprazole, 40 mg = 10 mL, Injection, IV Push, Daily, Routine, Start date 11/28/24 9:00:00 EDT, 11/28/24 7:47:00 EDT Sodium Chloride 0.9% intravenous solution 1,000 mL, 1,000 mL, IV, 100 mL/hr, for 2 dose(s), Stop date 11/29/24 6:35:00 EDT, Routine, Start date 11/28/24 10:36:00 EDT, 10 hour(s), Total volume (mL): 1,000, 51.8 kg, 1.5, m2 Clear Liquid Diet Subjective Seen and examined. Abdominal pain is getting better. Pain is down to 5/10. Pain is associated with some nausea. Objective Vitals & Measurements T: 37.2 ???C(Oral) TMIN: 36.6 ???C(Oral) TMAX: 37.2 ???C(Oral) HR: 83(Monitored) RR: 18 BP: 110/70 SpO2: 97% Intake & Output This visit (24 hour periods starting at 07:00 EDT) 11/28/24 * 11/27/24 11/26/24 Total Summary Intake mL 13 2,261.29 16 Output mL -- -- -- Fluid Balance 13 2,261.29 16 Intake (4) Sodium Chloride 0.9% intravenous solution 1,000 mL mL -- 2,243.29 -- hydromorphone mL 1 10 8 ondansetron mL 2 8 8 pantoprazole mL 10 -- -- Total 13 2,261.29 16 Output (0) Counts (1) Emesis Count -- -- 2 * This column has not completed the indicated time period. Physical Exam General: alert, no acute distress Skin: warm, dry Head: no trauma, normocephalic Neck: Trachea midline, no adenopathy, no tenderness Eye: normal conjunctiva, sclera clear ENMT: TM's clear, oral mucosa moist, no pharyngeal erythema or exudate Cardiovascular: regular rate and rhythm, normal peripheral perfusion Respiratory: Lungs CTA, respirations non labored Chest wall: no deformity. Gastrointestinal: soft, non distended, no tenderness, no guarding. Epigastric mild discomfort. Bowel sounds intact. Back: No tenderness, Normal ROM, Normal alignment. Extremities: no deformity, no trauma Neurological: oriented x 4, LOC appropriate for age, CN II-XII intact, motor strength equal & normal bilaterally, sensation equal & normal bilaterally, speech normal Psychiatric: cooperative, affect appropriate for age, normal judgement, normal psychiatric thoughts. Lab Results Glucose Lvl: 99 mg/dL (11/28/24 06:25:00) BUN: 5 mg/dL (11/28/24 06:25:00) Creatinine: 0.7 mg/dL (11/28/24 06:25:00) eGFR: 102 mL/min/1.73 m2 (11/28/24 06:25:00) BUN/Creat Ratio: 7 Low (11/28/24 06:25:00) Sodium Lvl: 138 mmol/L (11/28/24 06:25:00) Potassium Lvl: 3.9 mmol/L (11/28/24 06:25:00) Chloride: 110 mmol/L (11/28/24 06:25:00) CO2: 24 mmol/L (11/28/24 06:25:00) AGAP: 8 mEq/L (11/28/24 06:25:00) Calcium Lvl: 8.5 mg/dL Low (11/28/24 06:25:00) Lipase Lvl: 102 unit/L High (11/28/24 06:25:00) Problem List/Past Medical History Ongoing Smoker Historical No qualifying data Medications Inpatient Dilaudid 1 mg/mL injectable solution, 1 mg= 1 mL, IV Push, q4hr, PRN Lactated Ringers IV Kate 1000 mL 1,000 mL, 1000 mL, IV NS 1000 mL Soln-IV 1,000 mL, 1000 mL, IV pantoprazole 40 mg IV Inj, 40 mg= 10 mL, IV Push, Daily Zofran 4 mg/2 mL Injection, 4 mg= 2 mL, IV Push, q4hr, PRN Home amitriptyline 25 mg Tab, 25 mg= 1 tab(s), Oral, Once a day (at bedtime) Creon 24,000 units oral delayed release capsule, 1 cap(s), Oral, Daily ondansetron 4 mg Dis Tab, 4 mg= 1 tab(s), Oral, q8hr, PRN Pepcid 20 mg Tab, 20 mg= 1 tab(s), Oral, Daily, PRN promethazine 25 mg Tab, 25 mg= 1 tab(s), Oral, TID Result Comment: Electronical ly Signed By: SANDRA ALEXANDER, Tate\.br\Date and Time Signed: 11/28/24 10:41 EDT [facility] MEDICATION EDUCATION Observed: 11/28/2024 9:04 AM Status: F [facility] Yes [facility] Medication Education HYDROmorphone LIPASE LEVEL Collected: 6:25 AM Status: F Source: [facility] TYPE CODE TESTS RESULT OUT OF RANGE REFERENCE UNITS LAB [id number](LOINC) Lipase Lvl 102 High 13-58 unit/ L Performed By: #### [id number] # ### [facility] [address] [place] [address] EXTRA LAV Collected: 11/28/2024 6:25 AM Status: F Source: [facility] TYPE CODE TESTS RESULT OUT OF RANGE REFERENCE UNITS LAB CD:[id number](L OINC) WB Tube Collected Yes Unknown Performed By: #### [id number] #### [facility] [address] [place] [address] EGFR Collected: 6:25 AM Status: F Source: [facility] TYPE CODE TESTS RESULT OUT OF RANGE REFERENCE UNITS LAB [id number]([facility]) eGFR 102 Normal >=59 mL/min/1 .7 3 m2 Performed By: #### [id number] #### [facility] [address] [place] [address] BMP Collected: 11/28/2024 6:25 AM Status: F Source: [facility] TYPE CODE TESTS RESULT OUT OF RANGE REFERENCE UNITS LAB [id number](INC) Glucose Lvl 99 Normal 55-199 mg/d L LAB [id number](LOINC) BUN 5 Normal 5-21 mg/dL LAB [id number](INC) Creatinine 0.7 Normal 0.5-1.3 mg/dL LAB [id number](INC) BUN/Creat Ratio 7 Low 10-20 No Units LAB [id number](INC) Calcium Lvl 8.5 Low 8.9-11.1 mg/ dL LAB [id number](LOINC) Sodium Lvl 138 Normal 135-145 mmol/ L LAB [id number](LOINC) Potassium Lvl 3.9 Normal 3.5-5.3 mm ol/L LAB [id number](LOINC) Chloride 110 Normal 101-111 mmol/L LAB [id number](INC) CO2 24 Normal 21-31 mmol/L LAB [id number](INC) AGAP 8 Normal 6-16 mEq/L Performed By: #### [id number] # ### [facility] [address] [place] [address] PROGRESS NOTE-PHYSICIAN Observed: 2024 1:14 PM Status: F Source: [facility] Progress Note-Physician Assessment/Plan 54-year-old female admitted for acute on chronic pancreatitis with leukocytosis. She has a history of alcohol use but not for 12-13 years chronic pancreatitis. 1. Acute on chronic pancreatitis (K85.90: Acute pancreatitis without necrosis or infection, unspecified) Known history of chronic pancreatitis to alcohol abuse [facility] November 09, 2023 with no acute abnormalities She also had an endoscopic nerve block by in [place] in November 17 Lipase trending down to 159 Continue n.p.o. except for ice chips Fluid hydration Pain control and antiemetics as needed Ordered: [facility] Hospital Care/Day Moderate 35 Minutes 55990 2. Leukocytosis (D72.829: Elevated white blood cell count, unspecified) Resolved; white count at 8.2 with no shift (was 15.3 on admission) [facility] Moderate 35 Minutes 36403 3. History of alcohol use (Z87.898: Personal history of other specified conditions) Clean and sober for 12 to 13 years Or[facility]: [facility] Moderate 35 Minutes 58814 4. Smoker (F17.200: Nicotine dependence, unspecified, uncomplicated) Recommend cessation Ordered: [facility]Day Moderate 35 Minutes [id number] Orders: Basic Metabolic Panel CBC w/ Indices eGFR PLAN: 1. As outlined above 2. Will check lipase in a.m. 3. Full CODE STATUS 4. Will start thinking about advancing diet soon Subjective Patient seen and examined earlier today Still having some abdominal discomfort but getting more tolerable Not hungry at this point Review of Systems Constitutional: no fever, no chills, no sweats, no weakness Respiratory: no shortness of breath, no cough, no orthopnea, no wheezing Cardiovascular: no chest pain, no palpitations, no edema Additional ROS info: Except as noted in the above Review of Systems and in the History of Present Illness all other systems have been reviewed and are negative or noncontributory. Objective Vitals & Measurements T: 37.2 ???C(Oral) TMIN: 36.9 ???C(Oral) TMAX: 37.2 ???C(Oral) HR: 7(Peripheral) RR: 16 BP: 128/87 SpO2: 99% WT: 59.4 kg Intake & Output This visit (24 hour periods starting at 07:00 EDT) 11/27/24 * 11/26/24 11/25/24 Total Summary Intake mL 5 16 1,900.54 Output mL -- -- -- Fluid Balance 5 16 1,900.54 Intake (3) Sodium Chloride 0.9% intravenous solution 1,000 mL mL -- -- 1,881.54 hydromorphone mL 3 8 9 ondansetron mL 2 8 10 Total 5 16 1,900.54 Output (0) Counts (1) Emesis Count -- 2 2 * This column has not completed the indicated time period. Physical Exam Constitutional: Awake and alert; oriented x 3 with no apparent distress or respiratory distress Head/neck: Neck supple with no palpable lymphadenopathy, bruits or masses; trachea midline Chest/lungs: Clear to auscultation bilaterally no wheezes or rhonchi noted bilaterally Cardiovascular: Regular rate and rhythm; normal S1-S2 with no murmur; no pitting edema and 2+ pulses bilaterally Gastrointestinal: Soft, mild tender with palpation but no rebound or guarding noted, nondistended, positive bowel sounds Neurological: Nonfocal; cranial nerves II through XII appear intact Psychological: Pleasant affect Lab Results WBC: 8.2 E9/L (11/27/24 05:12:00) RBC: 3.5 E12/L Low (11/27/24 05:12:00) HGB: 11.5 gm/dL Low (11/27/24 05:12:00) Hct: 33.9 % Low (11/27/24 05:12:00) MCV: 96.5 fL (11/27/24 05:12:00) MCH: 32.8 pg (11/27/24 05:12:00) MCHC: 34 gm/dL (11/27/24 05:12:00) RDW: 12.9 % (11/27/24 05:12:00) Platelet: 225 E9/L (11/27/24 05:12:00) MPV: 8 fL (11/27/24 05:12:00) RBC Morph: NORMAL (11/27/24 05:12:00) Glucose Lvl: 86 mg/dL (11/27/24 05:12:00) BUN: 6 mg/dL (11/27/24 05:12:00) Creatinine: 0.7 mg/dL (11/27/24 05:12:00) eGFR: 102 mL/min/1.73 m2 (11/27/24 05:12:00) BUN/Creat Ratio: 9 Low (11/27/24 05:12:00) Sodium Lvl: 140 mmol/L (11/27/24 05:12:00) Potassium Lvl: 4.2 mmol/L (11/27/24 05:12:00) Chloride: 109 mmol/L (11/27/24 05:12:00) CO2: 28 mmol/L (11/27/24 05:12:00) AGAP: 7 mEq/L (11/27/24 05:12:00) Calcium Lvl: 8.6 mg/dL Low (11/27/24 05:12:00) Lipase Lvl: 159 unit/L High (11/27/24 05:12:00) Problem List/Past Medical History Ongoing Smoker Historical No qualifying data Medications Inpatient Dilaudid 1 mg/mL injectable solution, 1 mg= 1 mL, IV Push, q2hr, PRN Lactated Ringers IV Kate 1000 mL 1,000 mL, 1000 mL, IV NS 1000 mL Soln-IV 1,000 mL, 1000 mL, IV Zofran 4 mg/2 mL Injection, 4 mg= 2 mL, IV Push, q4hr, PRN Home amitriptyline 25 mg Tab, 25 mg= 1 tab(s), Oral, Once a day (at bedtime) Creon 24,000 units oral delayed release capsule, 1 cap(s), Oral, Daily ondansetron 4 mg Dis Tab, 4 mg= 1 tab(s), Oral, q8hr, PRN Pepcid 20 mg Tab, 20 mg= 1 tab(s), Oral, Daily, PRN promethazine 25 mg Tab, 25 mg= 1 tab(s), Oral, TID Result Comment: Electronical ly Signed By: Chi Hathaway DO\Date and Time Signed: 11/27/24 13:15 EDT BMP Collected: 11/27/2024 5:12 AM Status: F Source: [facility] TYPE CODE TESTS RESULT OUT OF RANGE REFERENCE UNITS LAB [id number](LOINC) Glucose Lvl 86 Normal 55-199 mg/d L LAB [id number](LOINC) BUN 6 Normal 5-21 mg/dL LAB [id number](INC) Creatinine 0.7 Normal 0.5-1.3 mg/dL LAB [id number]([facility]) BUN/Creat Ratio 9 Low 10-20 No Units LAB [id number]([facility]) Calcium Lvl 8.6 Low 8.9-11.1 mg/ dL LAB [id number]([facility]) Sodium Lvl 140 Normal 135-145 mmol/ L LAB [id number]([facility]) Potassium Lvl 4.2 Normal 3.5-5.3 mm ol/L LAB [id number]([facility]) Chloride 109 Normal 101-111 mmol/L LAB [id number]([facility]) CO2 28 Normal 21-31 mmol/L LAB [id number]([facility]) AGAP 7 Normal 6-16 mEq/L Performed By: #### [id number] # ### [facility] [address] [place] [address] EGFR Collected: 5 5:12 AM Status: F Source: [facility] TYPE CODE TESTS RESULT OUT OF RANGE REFERENCE UNITS LAB [id number]([facility]) eGFR 102 Normal >=59 mL/min/1 .7 3 m2 Performed By: #### [id number] #### [facility] [address] [place] [address] CBC W/INDICES Collected: 5 5:12 AM Status: F Source: [facility] TYPE CODE TESTS RESULT OUT OF RANGE REFERENCE UNITS LAB [id number]([facility]) WBC 8.2 Normal 4.0-11.0 E9/L LAB [id number]([facility]) RBC 3.5 Low 4.3-5.9 E12/L LAB [id number]([facility]) HGB 11.5 Low 12.0-16.0 gm/dL LAB [id number](INC) Hct 33.9 Low 34.0-46.0 % LAB 31392909(INC) RDW 12.9 Normal 10.9-14.2 % LAB [id number]([facility]) MCH 32.8 Normal 27.0-34.0 pg LAB [id number]([facility]) MCHC 34.0 Normal 31.4-36.0 gm/dL LAB [id number](LOINC) MCV 96.5 Normal 80.0-100.0 fL LAB [id number](LOINC) MPV 8.0 Normal 6.4-10.8 fL LAB [id number](LOINC) Platelet 225.0 Normal 150.0-500.0 E9/ L LAB [id number](LOINC) RBC Morph NORMAL Unknown Performed By: #### [id number] # ### [facility] [address] [place] [address] LIPASE LEVEL Collected: 5:12 AM Status: F Source: [facility] TYPE CODE TESTS RESULT OUT OF RANGE REFERENCE UNITS LAB [id number]([facility]) Lipase Lvl 159 High 13-58 unit/ L Performed By: #### [id number] # ### [facility] [address] [place] [address] PROGRESS NOTE-PHYSICIAN Observed: 2024 4:10 PM Status: F Source: [facility] Progress Note-Physician Assessment/Plan 54-year-old female admitted for acute on chronic pancreatitis with leukocytosis. She has a history of alcohol use but not for 12-13 years chronic pancreatitis. 1. Acute on chronic pancreatitis (K85.90: Acute pancreatitis without necrosis or infection, unspecified) Known history of chronic pancreatitis to alcohol abuse [facility] November 09, 2023 with no acute abnormalities She also had an endoscopic nerve block by in [place] in November 17 Lipase trending down to 240 Continue n.p.o. except for ice chips Fluid hydration Pain control and antiemetics as needed 2. Leukocytosis (D72.829: Elevated white blood cell count, unspecified) Resolved; white count at 7.7 with no shift (was 15.3 on admission) 3. History of alcohol use (Z87.898: Personal history of other specified conditions) Clean and sober for 12 to 13 years 4. Smoker (F17.200: Nicotine dependence, unspecified, uncomplicated) Recommend cessation PLAN: 1. As outlined above 2. Check labs in a.m. 3. Full CODE STATUS 4. If better tomorrow, we can try a diet; patient told me that she gets anxious and gets to the point where she just wants to go home despite pain and such -tried to educate her and her regarding the disease progression of pancreatitis and she has been dealing with this for several years now Subjective Patient seen and examined earlier today and then later in the afternoon with at the bedside Still having some abdominal discomfort and not hungry No other complaints Objective Vitals & Measurements T: 36.4 ???C(Oral) TMIN: 36.4 ???C(Oral) TMAX: 36.9 ???C(Oral) HR: 83(Monitored) RR: 17 BP: 126/64 SpO2: 94% WT: 57.3 kg Intake & Output This visit (24 hour periods starting at 07:00 EDT) 11/26/24 * 11/25/24 11/24/24 Total Summary Intake mL 5 1,900.54 384.88 Output mL -- -- -- Fluid Balance 5 1,900.54 384.88 Intake (3) Sodium Chloride 0.9% intravenous solution 1,000 mL mL -- 1,881.54 377.88 hydromorphone mL 3 9 3 ondansetron mL 2 10 4 Total 5 1,900.54 384.88 Output (0) Counts (1) Emesis Count 2 2 -- * This column has not completed the indicated time period. Physical Exam Constitutional: Awake and alert; oriented x 3 with no apparent distress or respiratory distress Head/neck: Neck supple with no palpable lymphadenopathy, bruits or masses; trachea midline Chest/lungs: Clear to auscultation bilaterally no wheezes or rhonchi noted bilaterally Cardiovascular: Regular rate and rhythm; normal S1-S2 with no murmur; no pitting edema and 2+ pulses bilaterally Gastrointestinal: Soft, mild tender with palpation but no rebound or guarding noted, nondistended, positive bowel sounds Neurological: Nonfocal; cranial nerves II through XII appear intact Psychological: Pleasant affect Lab Results WBC: 7.7 E9/L (11/26/24 04:55:00) RBC: 3.4 E12/L Low (11/26/24 04:55:00) HGB: 11.6 gm/dL Low (11/26/24 04:55:00) Hct: 33.6 % Low (11/26/24 04:55:00) MCV: 97.8 fL (11/26/24 04:55:00) MCH: 33.8 pg (11/26/24 04:55:00) MCHC: 34.6 gm/dL (11/26/24 04:55:00) RDW: 12.9 % (11/26/24 04:55:00) Platelet: 255 E9/L (11/26/24 04:55:00) MPV: 7.8 fL (11/26/24 04:55:00) Neutro Auto: 48.9 % (11/26/24 04:55:00) Lymph Auto: 39.1 % (11/26/24 04:55:00) Monroe Auto: 9.7 % (11/26/24 04:55:00) Eos Auto: 1.7 % (11/26/24 04:55:00) Basophil Auto: 0.6 % (11/26/24 04:55:00) Neutro Absolute: 3.8 E9/L (11/26/24 04:55:00) Lymph Absolute: 3 E9/L (11/26/24 04:55:00) Monroe Absolute: 0.7 E9/L (11/26/24 04:55:00) Eos Absolute: 0.1 E9/L (11/26/24 04:55:00) Basophil Absolute: 0 E9/L (11/26/24 04:55:00) Glucose Lvl: 84 mg/dL (11/26/24 04:55:00) BUN: 8 mg/dL (11/26/24 04:55:00) Creatinine: 0.8 mg/dL (11/26/24 04:55:00) eGFR: 87 mL/min/1.73 m2 (11/26/24 04:55:00) BUN/Creat Ratio: 10 (11/26/24 04:55:00) Sodium Lvl: 138 mmol/L (11/26/24 04:55:00) Potassium Lvl: 4 mmol/L (11/26/24 04:55:00) Chloride: 107 mmol/L (11/26/24 04:55:00) CO2: 28 mmol/L (11/26/24 04:55:00) AGAP: 7 mEq/L (11/26/24 04:55:00) Calcium Lvl: 8.7 mg/dL Low (11/26/24 04:55:00) Alk Phos: 121 Int._Unit/L High (11/26/24 04:55:00) ALT: 18 Int._Unit/L (11/26/24 04:55:00) AST: 29 Int._Unit/L (11/26/24 04:55:00) Total Protein: 5.4 gm/dL Low (11/26/24 04:55:00) Albumin Lvl: 3.5 gm/dL (11/26/24 04:55:00) Globulin: 1.9 gm/dL (11/26/24 04:55:00) A/G Ratio: 1.8 (11/26/24 04:55:00) Bili Total: 0.3 mg/dL (11/26/24 04:55:00) Lipase Lvl: 240 unit/L High (11/26/24 04:55:00) Problem List/Past Medical History Ongoing Smoker Historical No qualifying data Medications Inpatient Dilaudid 1 mg/mL injectable solution, 1 mg= 1 mL, IV Push, q2hr, PRN Lactated Ringers IV Kate 1000 mL 1,000 mL, 1000 mL, IV NS 1000 mL Soln-IV 1,000 mL, 1000 mL, IV Zofran 4 mg/2 mL Injection, 4 mg= 2 mL, IV Push, q4hr, PRN Home amitriptyline 25 mg Tab, 25 mg= 1 tab(s), Oral, Once a day (at bedtime) Creon 24,000 units oral delayed release capsule, 1 cap(s), Oral, Daily ondansetron 4 mg Dis Tab, 4 mg= 1 tab(s), Oral, q8hr, PRN Pepcid 20 mg Tab, 20 mg= 1 tab(s), Oral, Daily, PRN promethazine 25 mg Tab, 25 mg= 1 tab(s), Oral, TID Result Comment: Electronical ly Signed By: Chi Hathaway DO\Date and Time Signed: 11/26/24 16:10 EDT LIPASE LEVEL Collected: 5 4:55 AM Status: F Source: [facility] TYPE CODE TESTS RESULT OUT OF RANGE REFERENCE UNITS LAB [id number](LOINC) Lipase Lvl 240 High 13-58 unit/ L Performed By: #### [id number] # ### [facility] [address] [place] [address] EGFR Collected: 5 4:55 AM Status: F Source: [facility] TYPE CODE TESTS RESULT OUT OF RANGE REFERENCE UNITS LAB [id number](INC) eGFR 87 Normal >=59 mL/min/1 .7 3 m2 Performed By: #### [id number] #### [facility] [address] [place] [address] CBC W/ AUTO DIFF Collected: 5 4:55 AM Status: F Source: [facility] TYPE CODE TESTS RESULT OUT OF RANGE REFERENCE UNITS LAB [id number](LOINC) WBC 7.7 Normal 4.0-11.0 E9/L LAB [id number](LOINC) RBC 3.4 Low 4.3-5.9 E12/L LAB [id number](LOINC) HGB 11.6 Low 12.0-16.0 gm/dL LAB [id number](LOINC) Hct 33.6 Low 34.0-46.0 % LAB [id number](LOINC) RDW 12.9 Normal 10.9-14.2 % LAB [id number](LOINC) MCH 33.8 Normal 27.0-34.0 pg LAB [id number](LOINC) MCHC 34.6 Normal 31.4-36.0 gm/dL LAB [id number](LOINC) MCV 97.8 Normal 80.0-100.0 fL LAB [id number](LOINC) MPV 7.8 Normal 6.4-10.8 fL LAB [id number](LOINC) Platelet 255.0 Normal 150.0-500.0 E9/ L LAB [id number](LOINC) Neutro Auto 48.9 Normal 36.0-75.0 % LAB [id number](LOINC) Lymph Auto 39.1 Normal 14.0-50.0 % LAB [id number](LOINC) Monroe Auto 9.7 Normal 4.0-14.0 % LAB [id number](LOINC) Eos Auto 1.7 Normal 0.0-8.0 % LAB [id number](LOINC) Basophil Auto 0.6 Normal 0.0-2.0 % LAB [id number]([facility]) Neutro Absolute 3.8 Normal 2.0-7.5 E9/L LAB [id number]([facility]) Lymph Absolute 3.0 Normal 1.0-4.0 E9/L LAB [id number]([facility]) Monroe Absolute 0.7 Normal 0.2-1.0 E9 /L LAB [id number]([facility]) Eos Absolute 0.1 Normal 0.0-0.5 E9/ L LAB [id number]([facility]) Basophil Absolute 0.0 Normal 0.0-0.2 E9/L Performed By: #### [id number] # ### [facility] [address] [place] [address] CMP Collected: 11/26/2024 4:55 AM Status: F Source: [facility] TYPE CODE TESTS RESULT OUT OF RANGE REFERENCE UNITS LAB [id number]([facility]) Glucose Lvl 84 Normal 55-199 mg/d L LAB [id number]([facility]) BUN 8 Normal 5-21 mg/dL LAB [id number]([facility]) Creatinine 0.8 Normal 0.5-1.3 mg/dL LAB [id number]([facility]) Calcium Lvl 8.7 Low 8.9-11.1 mg/ dL LAB [id number]([facility]) Sodium Lvl 138 Normal 135-145 mmol/ L LAB [id number]([facility]) Potassium Lvl 4.0 Normal 3.5-5.3 mm ol/L LAB [id number]([facility]) Chloride 107 Normal 101-111 mmol/L LAB [id number]([facility]) CO2 28 Normal 21-31 mmol/L LAB [id number]([facility]) Alk Phos 121 High 21-98 Int._Un it /L LAB [id number]([facility]) Bili Total 0.3 Normal 0.0-1.1 mg/dL LAB [id number]([facility]) Albumin Lvl 3.5 Normal 3.3-5.0 gm/d L LAB [id number]([facility]) Total Protein 5.4 Low 6.0-7.8 gm /dL LAB [id number]([facility]) ALT 18 Normal 6-46 Int._Uni t /L LAB [id number]([facility]) AST 29 Normal 5-43 Int._Uni t /L LAB [id number](LOINC) BUN/Creat Ratio 10 Normal 10-20 No Units LAB [id number](LOINC) AGAP 7 Normal 6-16 mEq/L LAB [id number](LOINC) Globulin 1.9 Normal 1.4-4.0 gm/dL LAB [id number](LOINC) A/G Ratio 1.8 Normal 1.1-2.2 Performed By: #### [id number] # ### [facility] [address] [place] [address] INTERDISCIPLINARY NOTE - DWAYNE E COLORIST FORMULATOR Observed: 11/25/2024 9:16 AM Status: F Source: [facility] Interdisciplinary Note - Dwayne e Architectural Technologist CM met with patient at bedside. Patient states she is from home with and her daughter/ her boyfriend/ their baby twins and another small child are all living with her. Patient is independent with all self care drives and does not use DME in the home. Patient denies any discharge needs at this time and will transport home. Patient follows with [facility] in [place] for her PCP needs and Dr Hathaway is attending. Plan remains home no needs when medically stable. Patient admitted IN for pancreatitis. CM to follow. Result Comment: Electronical ly Signed By: Lara Wilson\Date and Time Signed: 11/25/24 09:21 EDT HISTORY AND PHYSICAL Observed: 2:14 AM Status: C Source: [facility] History and Physical Basic Information Admit Date/Time:11/25/2024 00:40 Chief Complaint Nausea, vomitting, abdominal pain History of Present Illness 54yo female with a PMH of chronic pancreatitis due to history of ETOH use and smoking. She has been sober form ETOH for 13 years. Presented to the ED with n/v/ and upper abdominal pain for the past 3 days. This feels like a typical pancreatitis flare other than she has been vomiting more this time and is unable to keep any liquids down. Typically she is able to manage her flares at home with Tylenol, Zofran/Phenergan, and liquids only. She reports being hospitalized a month ago at [facility] for 4 days. She had a MRCP at that time which showed no acute abnormalities (I was able to review the report in outside records). She also follows with a GI doc in [place] and had an endoscopic nerve block on 11/17 but it has not helped this time. She has had multiple injections in the past that have helped. She has been under considerable stress lately. Her daughter and boyfriend just moved in with them and they have 3 kids under the age of 2. ED Course: Afebrile. Mildly tachycardic. WBC elevated at 14.3K. Lipase elevated at 303 which is high for her. She was medicated with Dilaudid x2 and Zofran x2 in the ED. Also given a liter of fluids. Did not feel she could manage this at home currently, so was admitted. Physical Exam Vitals & Measurements T: 37.3 ???C(Oral) TMIN: 36.5 ???C(Oral) TMAX: 37.3 ???C(Oral) HR: 93(Monitored) RR: 16 BP: 110/70 SpO2: 94% HT: 157 cm WT: 51.8 kg General: NAD Skin: warm, dry, no rash Head: AT/NC Neck: Trachea midline, supple Eye: normal conjunctiva, sclera clear Cardiovascular: regular rate and rhythm, normal peripheral perfusion Respiratory: Lungs CTA, respirations non labored, breath sounds equal, no w/r/r Chest wall: no deformity. no TTP Gastrointestinal: soft, TTP in epigastric area and into left side, no peritoneal signs Extremities: no deformity, no edema Neurological: oriented, LOC appropriate for age, no focal deficits, normal speech Psychiatric: cooperative, affect appropriate for age, good eye contact Lab Results WBC: 14.3 E9/L High (11/24/24 22:06:00) RBC: 4.7 E12/L (11/24/24 22:06:00) HGB: 15.3 gm/dL (11/24/24 22:06:00) Hct: 45.4 % (11/24/24 22:06:00) MCV: 95.9 fL (11/24/24 22:06:00) MCH: 32.2 pg (11/24/24 22:06:00) MCHC: 33.6 gm/dL (11/24/24 22:06:00) RDW: 13 % (11/24/24 22:06:00) Platelet: 373 E9/L (11/24/24 22:06:00) MPV: 7.8 fL (11/24/24:06:00) Neutro Auto: 70.1 % (11/24/24:06:00) Lymph Auto: 18.2 % (11/24/24:06:00) Monroe Auto: 10.5 % (11/24/24 22:06:00) Eos Auto: 0.6 % (11/24/24:06:00) Basophil Auto: 0.6 % (11/24/24 22:06:00) Neutro Absolute: 10 E9/L High (11/24/24:06:00) Lymph Absolute: 2.6 E9/L (11/24/24:06:00) Monroe Absolute: 1.5 E9/L High (11/24/24 22:06:00) Eos Absolute: 0.1 E9/L (11/24/24:06:00) Basophil Absolute: 0.1 E9/L (11/24/24:06:00) Glucose Lvl: 109 mg/dL (11/24/24:06:00) BUN: 12 mg/dL (11/24/24 22:06:00) Creatinine: 0.9 mg/dL (11/24/24:06:00) eGFR: 75 mL/min/1.73 m2 (11/24/24:06:00) BUN/Creat Ratio: 13 (11/24/24:06:00) Sodium Lvl: 139 mmol/L (11/24/24:06:00) Potassium Lvl: 3.8 mmol/L (11/24/24:06:00) Chloride: 100 mmol/L Low (11/24/24:06:00) CO2: 30 mmol/L (11/24/24:06:00) AGAP: 13 mEq/L (11/24/24:06:00) Calcium Lvl: 10.7 mg/dL (11/24/24:06:00) Alk Phos: 169 Int._Unit/L High (11/24/24 22:06:00) ALT: 12 Int._Unit/L (09/18/25 22:06:00) AST: 19 Int._Unit/L (11/24/24 22:06:00) Total Protein: 7.9 gm/dL High (11/24/24 22:06:00) Albumin Lvl: 4.9 gm/dL (11/24/24 22:06:00) Globulin: 3 gm/dL (11/24/24 22:06:00) A/G Ratio: 1.6 (11/24/24 22:06:00) Bili Total: 0.4 mg/dL (11/24/24 22:06:00) Bili Direct: 0 mg/dL (11/24/24 22:06:00) Bili Indirect: 0.4 mg/dL (11/24/24 22:06:00) Lipase Lvl: 303 unit/L High (11/24/24 22:06:00) Assessment/Plan 1. Acute on chronic pancreatitis (K85.90: Acute pancreatitis without necrosis or infection, unspecified) Patient with known chronic pancreatitis due to hx ETOH abuse. Had an MRCP at [facility] on 11/08/24 with no acute abnormalities present. Therefore did not feel further imaging needed at this time unless patient fails to improve as expected. Lipase 303 Ice Chips for now until vomiting resolved NS at 150 cc/hr Ordered Dilaudid IV prn pain and Zofran prn n/v s/p endoscopic nerve block by GI in [place] on 11/17. 2. Leukocytosis (D72.829: Elevated white blood cell count, unspecified) Likely reactive due to above. Will trend. Afebrile. No indication for Abx. 3. History of alcohol use (Z87.898: Personal history of other specified conditions) Has been sober for 13 years 4. Smoker (F17.200: Nicotine dependence, unspecified, uncomplicated) Attestation Anticipate >2MN length of stay. Problem List/Past Medical History Ongoing Smoker Historical No qualifying data Medications Inpatient Dilaudid 1 mg/mL injectable solution, 1 mg= 1 mL, IV Push, q2hr, PRN Lactated Ringers IV Kate 1000 mL 1,000 mL, 1000 mL, IV NS 1000 mL Soln-IV 1,000 mL, 1000 mL, IV Zofran 4 mg/2 mL Injection, 4 mg= 2 mL, IV Push, q4hr, PRN Home amitriptyline 25 mg Tab, 25 mg= 1 tab(s), Oral, Once a day (at bedtime) Creon 24,000 units oral delayed release capsule, 1 cap(s), Oral, Daily ondansetron 4 mg Dis Tab, 4 mg= 1 tab(s), Oral, q8hr, PRN Pepcid 20 mg Tab, 20 mg= 1 tab(s), Oral, Daily, PRN promethazine 25 mg Tab, 25 mg= 1 tab(s), Oral, TID Allergies haloperidol (Swelling, Hives) morphine (Hives, Swelling) penicillin (Swelling) traMADol (Swelling, Hives) Compazine (Hives) Toradol (Swelling) fentaNYL (Hives) ibuprofen (Hives, Swelling) Social History Alcohol - Denies Alcohol Use, 10/03/2024 Substance Abuse - Denies Substance Abuse, 10/03/2024 Tobacco - High Risk, 10/03/2024 10 or more cigarettes (1/2 pack or more)/day in last 30 days Tobacco Use:. Cigarettes, 10/03/2024 Patient seen and examined earlier today and still having some abdominal pain On exam abdomen is soft with some mild guarding but no guarding noted Continue IV fluids and n.p.o. status except for ice chips Check labs in a.m. Result Comment: Electronical ly Signed By: Chi Hathaway DO\.br\Date and Time Signed: 11/25/24 15:38 EDT ED PATIENT SUMMARY Observed: 11/25/2024 1:33 AM Status: F Source: [facility] ED Patient Summary [address] [address] Patient Discharge Instructions Person Information Name: CHIOMA ARCINIEGA Age: 54 Years Arrival Date: 11/24/2024 20:08:05 Discharge Diagnosis: Acute on chronic pancreatitis; Other chronic pancreatitis Primary Care Physician: NONE, XXXX Provider Information Primary Provider: Loki Ernandez DO [employer] Adviser:None The exam and treatment you received in the Emergency Department were for an urgent problem and are not intended as complete care. It is important that you follow up with a doctor, nurse practitioner, or physician???s marketing support assistant for ongoing care. If your symptoms become worse or you do not improve as expected and you are unable to reach your usual health care provider, you should return to the Emergency Department. We are available 24 hours a day. CHIOMA ARCINIEGA has been given the following list of patient education materials, prescriptions and follow-up instructions: Follow-up Instructions: In the event that this physician does not participate in your insurance network, please consult with your insurance company to find a nearby participating provider. Patient Education Materials: A MESSAGE TO ALL PATIENTS REGARDING OPIOIDS PRESCRIPTION OPIOIDS: WHAT YOU NEED TO KNOW Prescription opioids can be used to help relieve qsrmdvfp-fe-rfckmh pain and are often prescribed following a [...] guidance from the Food and Drug Administration (www.fda.gov/Drugs/ResourcesForYou). ??? Visit www.cdc.gov/drugoverdose to learn about the risks of opioids abuse and overdose. ??? If you believe you may be struggling with addiction, tell your health urgent care physician assistant and ask for guidance or call [facility]???S National Helpline at 4-355-139-TZAN. v Source: US Department of Health and Human Services/Center for Disease Control & Prevention [facility] Medications Given: Medication Dose Route Lactated Ringers Injection 1000.00 mL Initial Volume 999.00 mL/hr IV Left Antecubital [place] HYDROmorphone 0.50 mg IV Push Left Antecubital Mya ondansetron 4.00 mg IV Push Left Antecubital [place] HYDROmorphone 0.50 mg IV Push Left Antecubital Mya ondansetron 4.00 mg Oral Medication Information: Medications to Continue with No Changes Other Medications promethazine (promethazine 25 mg Tab) 1 Tablets By Mouth 3 times a day. Refills: 0. Comment: Patient Portal You may access all of your results and other medical record information on our secure patient portal. If you are not signed up for this yet, please contact [employer] at [phone] to get signed up today. FILOMENA Award Nomination The FILOMENA (Diseases Attacking the Immune SYstem) Award is an international recognition program that honors and celebrates the skillful, compassionate care nurses provide every day. Anyone who experiences or observes amazing care being provided by a nurse is encouraged to submit a nomination. To nominate your nurse, use your smart phone to scan the QR code below. Language Information Language assistance services are available as needed. You may receive a survey from [employer] asking you to rate your care experience. Your feedback is important and will help us understand what we do well and how we can improve the quality of care we provide to you, your loved ones and our community. It???s an honor to serve you. Thank you for choosing [facility] Patient Education Materials: JANUSZ Christopher MICHELLE , have received the following patient education materials/instructions and have verbalized understanding: Patient Education Materials: Follow-up Instructions: Patient Signature Date Clinician/Nurse Signature Date 11/25/2024 01:33:47 ED PATIENT EDUCATION NOTE Observed: 11/07 1:33 AM Status: F Source: [facility] ED Patient Education Note ED CLINICAL SUMMARY Observed: 11/25/2024 1:33 AM Status: F Source: [facility] ED Clinical Summary [address] [address] ED Clinical Summary Person Information Name: CHIOMA ARCINIEGA/New_Oniel Age: 54 Years : 1970 Sex: Female Language: Armenian PCP: NONE, XXXX Marital Status: Visit Id: Visit Reason: Abdominal problem; Nausea; Abdominal pain; SEVERE ABD PAIN, N/V Speciality: Acuity: 3 Enc Type: Inpatient Med Service: Medical Arrival: 11/24/2024 20:08:05 Discharge: LOS: 000 05:25 Checkin: 11/24/2024 20:08:05 Checkout: 11/25/2024 01:33:45 Dispo Type: Admitted as IP to this [facility] EVENTS: Event Name Event Status Request Date/Time Start Date/Time Complete Date/Time Arrive Complete 11/24/2024 20:08:05 11/24/2024 20:08:05 11/24/2024 20:08:05 Document Home Meds Request 11/24/2024 20:08:05 Triage Complete 11/24/2024 20:08:05 11/24/2024 20:24:30 11/24/2024 20:24:30 Registration Complete 11/24/2024 20:09:51 11/24/2024 20:09:51 11/24/2024 20:09:51 Reg Complete Request 11/24/2024 20:09:51 Reg Bed Request Complete 11/24/2024 20:09:51 11/24/2024 20:09:51 11/24/2024 20:09:51 Bed Assign Complete 11/24/2024 21:50:58 11/24/2024 21:50:58 11/24/2024 21:50:58 Dr Exam Complete 11/24/2024 21:50:58 11/24/2024 21:59:33 11/24/2024 21:59:33 RN Exam Complete 11/24/2024 21:50:58 11/24/2024 22:43:27 11/24/2024 22:43:27 Registration Request 11/24/2024 21:59:33 Pending Labs Complete 11/24/2024 22:04:19 11/24/2024 22:34:45 Lab Complete 11/24/2024 22:04:19 11/24/2024 22:34:45 Pending Labs Complete 11/24/2024 22:08:23 11/24/2024 22:08:23 11/24/2024 22:34:45 Lab Complete 11/24/2024 22:08:23 11/24/2024 22:08:23 11/24/2024 22:34:45 Pending Labs Complete 11/24/2024 22:17:43 11/24/2024 22:17:43 11/24/2024 22:17:43 Meds Admin Request 11/24/2024 23:33:57 Meds Admin Complete 11/24/2024 23:34:30 11/24/2024 23:40:49 Meds Admin Complete 11/25/2024 00:27:44 11/25/2024 00:46:10 NPO Request 11/25/2024 00:27:44 Consult Request 11/25/2024 00:28:05 Hospitalist Consult Request 11/25/2024 00:28:05 Admit Request 11/25/2024 00:40:37 Patient Care Request 11/25/2024 00:40:37 Patient Care Request 11/25/2024 00:40:39 Patient Care Request 11/25/2024 00:40:39 Patient Care Request 11/25/2024 00:40:40 Patient Care Request 11/25/2024 00:40:40 Patient Care Request 11/25/2024 00:40:41 Patient Care Request 11/25/2024 00:40:41 Patient Care Request 11/25/2024 01:07:56 Meds Admin Request 11/25/2024 01:07:56 NPO Request 11/25/2024 01:08:15 Pending Labs Request 11/25/2024 01:08:38 Lab Request 11/25/2024 01:08:38 ADDRESS: [address] [id number] PHYS DOC NOTES: MEDICAL INFORMATION: Prescriptions Given: Medications to Continue with No Changes Other Medications promethazine (promethazine 25 mg Tab) 1 Tablets By Mouth 3 times a day. Refills: 0. PATIENT EDUCATION INFORMATION: Instructions: Follow up: DIAGNOSIS: Acute on chronic pancreatitis; Other chronic pancreatitis LIPASE LEVEL Collected: 10:06 PM Status: F Source: [facility] TYPE CODE TESTS RESULT OUT OF RANGE REFERENCE UNITS LAB [id number](LOINC) Lipase Lvl 303 High 13-58 unit/ L Performed By: #### [id number] # ### [facility] [address] [place] [address] CBC W/ AUTO DIFF Collected: 10:06 PM Status: F Source: [facility] TYPE CODE TESTS RESULT OUT OF RANGE REFERENCE UNITS LAB [id number](LOINC) WBC 14.3 High 4.0-11.0 E9/L LAB [id number](LOINC) RBC 4.7 Normal 4.3-5.9 E12/L LAB [id number](LOINC) HGB 15.3 Normal 12.0-16.0 gm/dL LAB [id number](LOINC) Hct 45.4 Normal 34.0-46.0 % LAB [id number](LOINC) RDW 13.0 Normal 10.9-14.2 % LAB [id number](LOINC) MCH 32.2 Normal 27.0-34.0 pg LAB [id number](LOINC) MCHC 33.6 Normal 31.4-36.0 gm/dL LAB [id number](LOINC) MCV 95.9 Normal 80.0-100.0 fL LAB [id number](LOINC) MPV 7.8 Normal 6.4-10.8 fL LAB [id number](LOINC) Platelet 373.0 Normal 150.0-500.0 E9/ L LAB [id number](LOINC) Neutro Auto 70.1 Normal 36.0-75.0 % LAB [id number](LOINC) Lymph Auto 18.2 Normal 14.0-50.0 % LAB [id number](LOINC) Monroe Auto 10.5 Normal 4.0-14.0 % LAB [id number](LOINC) Eos Auto 0.6 Normal 0.0-8.0 % LAB [id number](LOINC) Basophil Auto 0.6 Normal 0.0-2.0 % LAB [id number](LOINC) Neutro Absolute 10.0 High 2.0-7.5 E9/L LAB [id number](LOINC) Lymph Absolute 2.6 Normal 1.0-4.0 E9/L LAB [id number](LOINC) Monroe Absolute 1.5 High 0.2-1.0 E9 /L LAB [id number](LOINC) Eos Absolute 0.1 Normal 0.0-0.5 E9/ L LAB [id number](LOINC) Basophil Absolute 0.1 Normal 0.0-0.2 E9/L Performed By: #### [id number] # ### [facility] [address] [place] [address] EGFR Collected: 10:06 PM Status: F Source: [facility] TYPE CODE TESTS RESULT OUT OF RANGE REFERENCE UNITS LAB [id number](INC) eGFR 75 Normal >=59 mL/min/1 .7 3 m2 Performed By: #### [id number] #### [facility] [address] [place] [address] EXTRA BLUE Collected: 10:06 PM Status: F Source: [facility] TYPE CODE TESTS RESULT OUT OF RANGE REFERENCE UNITS LAB CD:[id number](L OINC) Tube Collected Plasma Yes Unknown Performed By: #### [id number] #### [facility] [address] [place] [address] BMP Collected: 11/24/2024 10:06 PM Status: F Source: [facility] TYPE CODE TESTS RESULT OUT OF RANGE REFERENCE UNITS LAB [id number](LOINC) Glucose Lvl 109 Normal 55-199 mg/d L LAB [id number](LOINC) BUN 12 Normal 5-21 mg/dL LAB [id number](INC) Creatinine 0.9 Normal 0.5-1.3 mg/dL LAB [id number](INC) BUN/Creat Ratio 13 Normal 10-20 No Units LAB [id number](INC) Calcium Lvl 10.7 Normal 8.9-11.1 mg/ dL LAB [id number]([facility]) Sodium Lvl 139 Normal 135-145 mmol/ L LAB [id number]([facility]) Potassium Lvl 3.8 Normal 3.5-5.3 mm ol/L LAB [id number]([facility]) Chloride 100 Low 101-111 mmol/L LAB [id number]([facility]) CO2 30 Normal 21-31 mmol/L LAB [id number]([facility]) AGAP 13 Normal 6-16 mEq/L Performed By: #### [id number] # ### [facility] [address] [place] [address] HEP FUNC PANEL Collected: 5 10:06 PM Status: F Source: [facility] TYPE CODE TESTS RESULT OUT OF RANGE REFERENCE UNITS LAB [id number]([facility]) ALT 12 Normal 6-46 Int._Uni t /L LAB [id number]([facility]) AST 19 Normal 5-43 Int._Uni t /L LAB [id number]([facility]) Albumin Lvl 4.9 Normal 3.3-5.0 gm/d L LAB [id number]([facility]) Globulin 3.0 Normal 1.4-4.0 gm/dL LAB 00518631([facility]) A/G Ratio 1.6 Normal 1.1-2.2 LAB [id number]([facility]) Alk Phos 169 High 21-98 Int._Un it /L LAB [id number]([facility]) Bili Direct 0.0 Normal 0.0-0.4 mg/d L LAB [id number]([facility]) Bili Indirect 0.4 Normal 0.1-0.9 mg /dL LAB [id number]([facility]) Bili Total 0.4 Normal 0.0-1.1 mg/dL LAB [id number]([facility]) Total Protein 7.9 High 6.0-7.8 gm /dL Performed By: #### [id number] # ### [facility] [address] [place] [address] ED NOTE-PHYSICIAN Observed: 11/24/2024 8:08 PM Status: F Source: [facility] ED Note-Physician Basic Information Time Seen: Loki Ernandez DOGopal 11/24/2024 21:59 Chief Complaint pt to ED with c/o upper abd pain. states chronic pancreatitis and having a flare. denies fevers or chills. reports n/v. states following with GI doc a few weeks ago for nerve block with no relief. History of Present Illness 54-year-old female to the emergency department with chief complaint of chronic pancreatitis. Patient reports she is currently having a flare. Symptoms began 3 days ago. She reports nausea vomiting and upper abdominal pain. She reports she has had flares on and off for several years. She follows with multiple GI physicians, most recently a GI physician at the [facility] who performs interventional pain management treatments for this. She had a nerve block performed a few weeks ago which does not appear to have helped her. She reports persistence of nausea and vomiting. Persistence of pain. No fever, sweats, chills. Review of Systems A 10 point review of systems is negative except as noted above. Medical and Surgical History: Reviewed and noted Social history: Lives at home Tobacco: Denies Physical Exam Vitals & Measurements T: 37.1 ???C(Oral) HR: 100(Peripheral) RR: 18 BP: 131/85 SpO2: 97% HT: 157 cm WT: 51.8 kg BMI: 21.02 VITALS: I have reviewed the triage vital signs. GENERAL: Well uncomfortable appearing adult female NEURO: Alert and oriented. Moves all extremities. Face is symmetric and expressive. EYES: PERRL. No scleral icterus or conjunctival injection. No discharge. HENT: Normocephalic, atraumatic. Hearing is grossly intact. Nares grossly patent and without discharge. Mucous membranes moist. NECK: No JVD. Patient moves neck without restriction. CARDIO: Rhythm regular. Normal rate. No murmur, rub, or gallop. Pulses equal bilaterally in the upper and lower extremity. No lower extremity edema. PULM: Lungs clear to auscultation in all la. No wheezes, rales, or rhonchi. No conversational dyspnea. No splinting, stridor, or accessory muscle use. GI/: Abdomen is soft and non-tender. Normoactive bowel sounds. EXTREMITIES: Symmetric muscle bulk. No joint swelling. No clubbing, cyanosis, or deformity. SKIN: Warm and dry. Normal turgor. No rash or lesions appreciated. PSYCH: Mood, affect, and interaction is appropriate to the setting. Medical Decision Making 54-year-old female to the emergency department chief complaint of flareup of chronic pancreatitis. Vital stable, the patient is afebrile. Her abdominal examination is benign. Dilaudid, Zofran, lactated Ringer's ordered for symptom control. Basic labs. CBC and chemistry reviewed. Her lipase is elevated today at 303. Normal liver enzymes. Long history of pancreatitis, classic symptoms for the patient. No indication for imaging at this time. Long discussion was had with patient. She has history of chronic recurrent pancreatitis. She is normally able to tough it out at home with pain medications per her report. Today seems more severe symptoms. She was given 2 rounds of pain medication and does not think she will do well at home yet. She will be admitted for fluids and pain control. Case discussed with the hospitalist who agrees admit the patient. Assessment/Plan Acute on chronic pancreatitis (K85.90: Acute pancreatitis without necrosis or infection, unspecified) Other chronic pancreatitis (K86.1: Other chronic pancreatitis) Orders: HYDROmorphone, 0.5 mg = 0.5 mL, Injection, IV Push, Once, Stop date 11/24/24 23:34:00 EDT, STAT, Start date 11/24/24 23:34:00 EDT, 11/24/24 23:34:00 EDT Lactated Ringers Injection 1,000 mL, 1,000 mL, IV, 999 mL/hr, STAT, Start date 11/24/24 23:33:00 EDT, 1 hour(s), Total volume (mL): 1,000, 51.8 kg, 1.5, m2 ondansetron, 4 mg = 2 mL, Injection, IV Push, Once, Stop date 11/24/24 23:34:00 EDT, STAT, Start date 11/24/24 23:34:00 EDT, 11/24/24 23:34:00 EDT Basic Metabolic Panel CBC w/ Auto Diff eGFR Extra Blue Tube Extra SST Tube Hepatic Function Panel Lipase Level Disposition Plan Patient Discharge Condition Stable Discharge Disposition Admitted Discharge Prescription List Prescriptions No active prescription medications Follow-up No qualifying data available Problem List/Past Medical History Ongoing Smoker Historical No qualifying data Medications Inpatient HYDROmorphone 0.5 mg/0.5 mL injectable solution, 0.5 mg= 0.5 mL, IV Push, Once Lactated Ringers IV Kate 1000 mL 1,000 mL, 1000 mL, IV Zofran 4 mg/2 mL Injection, 4 mg= 2 mL, IV Push, Once Home promethazine 25 mg Tab, 25 mg= 1 tab(s), Oral, TID Allergies haloperidol (Swelling, Hives) morphine (Hives, Swelling) penicillin (Swelling) traMADol (Swelling, Hives) Compazine (Hives) Toradol (Swelling) fentaNYL (Hives) ibuprofen (Hives, Swelling) Social History Alcohol - Denies Alcohol Use, 10/03/2024 Substance Abuse - Denies Substance Abuse, 10/03/2024 Tobacco - High Risk, 10/03/2024 10 or more cigarettes (1/2 pack or more)/day in last 30 days Tobacco Use:. Cigarettes, 10/03/2024 Lab Results WBC: 14.3 E9/L High (11/24/24 22:06:00) RBC: 4.7 E12/L (11/24/24 22:06:00) HGB: 15.3 gm/dL (11/24/24 22:06:00) Hct: 45.4 % (11/24/24 22:06:00) MCV: 95.9 fL (11/24/24 22:06:00) MCH: 32.2 pg (11/24/24 22:06:00) MCHC: 33.6 gm/dL (11/24/24 22:06:00) RDW: 13 % (11/24/24 22:06:00) Platelet: 373 E9/L (11/24/24 22:06:00) MPV: 7.8 fL (11/24/24 22:06:00) Neutro Auto: 70.1 % (11/24/24 22:06:00) Lymph Auto: 18.2 % (11/24/24 22:06:00) Monroe Auto: 10.5 % (11/24/24 22:06:00) Eos Auto: 0.6 % (11/24/24 22:06:00) Basophil Auto: 0.6 % (11/24/24 22:06:00) Neutro Absolute: 10 E9/L High (11/24/24 22:06:00) Lymph Absolute: 2.6 E9/L (11/24/24 22:06:00) Monroe Absolute: 1.5 E9/L High (11/24/24:06:00) Eos Absolute: 0.1 E9/L (11/24/24 22:06:00) Basophil Absolute: 0.1 E9/L (11/24/24 22:06:00) Glucose Lvl: 109 mg/dL (11/24/24:06:00) BUN: 12 mg/dL (11/24/24:06:00) Creatinine: 0.9 mg/dL (11/24/24:06:00) eGFR: 75 mL/min/1.73 m2 (11/24/24:06:00) BUN/Creat Ratio: 13 (11/24/24:06:00) Sodium Lvl: 139 mmol/L (11/24/24 22:06:00) Potassium Lvl: 3.8 mmol/L (11/24/24:06:00) Chloride: 100 mmol/L Low (11/24/24:06:00) CO2: 30 mmol/L (11/24/24:06:00) AGAP: 13 mEq/L (11/24/24:06:00) Calcium Lvl: 10.7 mg/dL (11/24/24:06:00) Alk Phos: 169 Int._Unit/L High (11/24/24 22:06:00) ALT: 12 Int._Unit/L (11/24/24 22:06:00) AST: 19 Int._Unit/L (11/24/24:06:00) Total Protein: 7.9 gm/dL High (11/24/24 22:06:00) Albumin Lvl: 4.9 gm/dL (11/24/24 22:06:00) Globulin: 3 gm/dL (11/24/24 22:06:00) A/G Ratio: 1.6 (11/24/24 22:06:00) Bili Total: 0.4 mg/dL (11/24/24 22:06:00) Bili Direct: 0 mg/dL (11/24/24 22:06:00) Bili Indirect: 0.4 mg/dL (11/24/24 22:06:00) Lipase Lvl: 303 unit/L High (11/24/24 22:06:00) Diagnostic Results No qualifying data available. Result Comment: Electronical ly Signed By: Loki Ernandez DO.br\Date and Time Signed: 11/25/24 01:13 EDT ANES POSTPROC EVAL Observed: 11/17/2024 5:00 PM Status: COMPLETED Source: [facility] HNO ID: [id number] Author: GIBRAN COSBY MD Service: ? Author Type: Physician Type: Anesthesia Postprocedure Evaluation Filed: 11/21/2024 08:24 Note Text: POST ANESTHESIA EVALUATION NOTE : 1970 Procedure Summary Date: 11/17/24 Room / Location: Gastroenterology Anesthesia Start: 1444 Anesthesia Stop: 1527 Procedure: EGD - THERAPEUTIC, EUS, OR TUBE INTERVENTIONS Diagnosis: Chronic pancreatitis, unspecified pancreatitis type (HCC) Epigastric pain Loose stools Heartburn Exocrine pancreatic insufficiency (HCC) (Celiac plexus block for pain secondary to chronic pancreatitis) Scheduled Providers: Josse Stovall MD Responsible Provider: Gibran Cosby MD Anesthesia Type: general ASA Status: 3 Anesthesia Type: general Airway Type: anesthesia mask Last Vitals Vitals Value Taken Time BP 122/72 11/17/24 16:30 Temp 36.6 ?C (97.9 ?F) 11/17/24 15:21 Pulse 78 11/17/24 16:30 Resp 16 11/17/24 16:30 SpO2 98 % 11/17/24 16:30 Post Anesthesia Patient Status Patient Evaluation: PACU. PACU/ICU Patient Condition: stable. Anticipated Disposition: phase 2 then home. Neurological Status: aware and responsive. Pulmonary Status: breathing comfortably on room air Airway Control: returned to baseline unsupported. Cardiovascular Status: stable. Pain Management: clinically adequate Postoperative Hydration: acceptable. Intraoperative Events: no significant anesthesia events Post Operative Nausea/Vomiting Status: no significant post operative nausea or vomiting Recommendation: continue current plan of care. Anesthesia Observations No Documentation SIGNATURE: Gibran Cosby MD PATIENT NAME: Chioma Rainey DATE: November 21, 2024 TIME: 8:23 AM CSN: [id number] NURSING PROG Observed: 11/17/2024 3:24 PM Status: COMPLETED Source: [facility] HNO ID: [id number] Author: MAYRA SANTIAGO RN Service: ? Author Type: Registered Nurse Type: Nursing Progress Note Filed: 11/17/2024 15:24 Note Text: AMBULATORY PATIENT EDUCATION NOTE TOPIC: GI PROCEDURES: Endoscopic Ultrasound (EUS) with or without Fine Needle Aspiration (FNA) Esophagogastroduodenoscopy(EGD) with or without biopies based on clinical findings, removal of polyps or lesions READINESS TO LEARN INSTRUCTION PROVIDED TO: Patient, readness to learn accessed prior to procedure COGNITIVE ABILITY: Alert and oriented PTED MOTIVATION TO LEARN: Eager FAMILY SUPPORT: High - Very involved in pt care IPATIENT LEARNS BEST BY: Individual Instruction FACTORS AFFECTING LEARNING: None PHYSICAL LIMITATIONS AFFECTING LEARNING: None LEARNING RESPONSE METHOD OF INSTRUCTION: Individual instruction PATIENT / FAMILY RESPONSE: Verbalizes understanding of: WORSENING CONDITION-Signs and symptoms of a worsening condition that warrant a call to the physician FOLLOW-UP PLAN: Complete - No need for follow-up SUPPLEMENTAL MATERIAL: Procedure Discharge Instructions REFERRAL (RECOMMENDATION): None Electronically Signed By: Mayra Santiago RN UPPER EUS Observed: 11/17/2024 2:39 PM Status: F Source: [facility] Q3 Patient Name: Chioma Rainey Procedure Date: 11/17/2024 2:39 PM Date of : 1970 Admit Type: Outpatient Age: 54 Gender: Female Note Status: Finalized Attending MD: Josse Stovall MD, [id number] Procedure: Upper EUS Indications: Celiac plexus block for visceral abdominal pain Providers: Josse Stovall MD Patient Profile: This is a 54 year old female. Referring Physician: Lindsey Willard (Referring MD) Medicines: Monitored Anesthesia Care Complications: No immediate complications. Requesting Provider: Procedure: Pre-Anesthesia Assessment: - Prior to the procedure, a History and Physical was performed, and patient medications and allergies were reviewed. The patient's tolerance of previous anesthesia was also reviewed. The risks and benefits of the procedure and the sedation options and risks were discussed with the patient. All questions were answered, and informed consent was obtained. Prior Anticoagulants: The patient has taken no anticoagulant or antiplatelet agents. ASA Grade Assessment: III - A patient with severe systemic disease. After reviewing the risks and benefits, the patient was deemed in satisfactory condition to undergo the procedure. After obtaining informed consent, the endoscope was passed under direct vision. Throughout the procedure, the patient's blood pressure, pulse, and oxygen saturations were monitored continuously. The Endosonoscope was introduced through the mouth, and advanced to the second part of duodenum. The Endoscope was introduced through the mouth, and advanced to the second part of duodenum. The upper EUS was accomplished without difficulty. The patient tolerated the procedure well. Moderate Sedation: MAC anesthesia was administered by the anesthesia team. Findings: ENDOSCOPIC FINDING: : The examined esophagus was endoscopically normal. The entire examined stomach was endoscopically normal. The examined duodenum was endoscopically normal. ENDOSONOGRAPHIC FINDING: : There was no sign of significant endosonographic abnormality in the entire pancreas. The pancreatic duct was thin in caliber, the pancreatic duct was regular in contour. Celiac plexus block was performed. The region [...] a 22 gauge needle was advanced to the area of the celiac ganglia. Needle aspiration was performed prior to injection to exclude entry into a blood vessel. A total of 20 mL of 2.5% Ropivicaine was injected for the celiac plexus block. The needle was then withdrawn. Impression: - There was no sign of significant pathology in the entire pancreas. - Celiac plexus block performed. Estimated Blood Loss: Estimated blood loss: none. Attending Participation: I personally performed the entire procedure. Scope In: 2:53:38 PM Scope Out: 3:10:12 PM MD Josse Linares MD 11/17/2024 3:14:34 PM This report has been signed electronically by Josse Stovall MD Number of Addenda: 0 Note Initiated On: 11/17/2024 2:39 PM ANES PRE-OP Observed: 11/17/2024 2:38 PM Status: COMPLETED Source: [facility] HNO ID: [id number] Author: GIBRAN COSBY MD Service: ? Author Type: Physician Type: Anesthesia Preprocedure Evaluation Filed: 11/17/2024 14:39 Note Text: ANESTHESIOLOGY DAY OF SURGERY NOTE : 1970 Procedure Information Date/Time: 11/17/24 1530 Scheduled providers: Josse Stovall MD; Sandhya Poon APRN.[employer]; Gibran Cosby MD Procedure: EGD - THERAPEUTIC, EUS, OR TUBE INTERVENTIONS Location: Gastroenterology Estimated body mass index is 21.95 kg/m? as calculated from the following: Height as of this encounter: 157.5 cm (5' 2 ). Weight as of this encounter: 54.4 kg (120 lb). Most recent hematocrit and potassium results: Hematocrit 34.3 10/13/2011 Potassium 3.9 10/13/2011 Relevant Problems Gastrointestinal (+) Abdominal pain, other specified site (+) Loss of appetite (+) Nausea AND vomiting Endocrinology (+) Alcohol-induced chronic pancreatitis (HCC) Other (+) S/P cholecystectomy I - PHYSICAL EVALUATION AIRWAY Patient intubated: No. Tracheostomy tube not present Mallampati: II. TM distance: >3 FB. Neck ROM: full ROM without neurological symptoms. Mouth opening: >3 FB. Short neck: no. Thick neck: no DENTAL Dental findings: poor dentition. II - ANESTHESIA PLAN ASA Score: 3 Anesthetic Plan: general Airway type: anesthesia mask NPO Status: adequate Monitoring Plan Monitoring plan: standard ASA. Post Procedure Analgesic Plan Postoperative analgesic plan: multimodal analgesia. Informed Consent Anesthetic risks, benefits, alternatives, personnel and consent discussed: yes. Patient / Responsible Alliance Party agrees to proceed: yes Patient / Surrogate agrees to blood products: blood products not planned Significant changes in the patient condition since the History and Physical, not otherwise documented in primary service progress note: no. Potential Anesthesia issues that may suggest increased risk of complications or contraindication to planned procedure: none. Vitals Value Taken Time BP 116/71 11/17/24 14:13 Pulse Resp 16 11/17/24 14:13 Temp 36.3 ?C (97.3 ?F) 11/17/24 14:13 SpO2 99 % 11/17/24 14:13 Outpatient Medications as of 11/17/2024 Medication Sig xiqegz-akllgaxi-gciqcsj (CREON) 24,000-76,000 -120,000 unit delayed release capsule Take 2 caps by mouth 3 times daily with meals and 1 cap with each snack. Take 1st cap before meal starts and the 2nd cap skilled nursing through. Max of 10 capsules per day. amitriptyline (ELAVIL) 25 mg tablet Take 1 tablet by mouth daily at bedtime. promethazine HCl (PHENERGAN ORAL) Take by mouth. oxyCODONE-acetaminophen (PERCOCET) 5-325 mg tablet Take 1 tablet by mouth every 8 hours as needed. No current facility-administered medications on file as of 11/17/2024. I have interviewed and examined the patient. I have reviewed the medical record and/or the pre-anesthesia evaluation, pertinent labs, and test results. This contains updated information obtained within 48 hours of Surgery/Procedure. SIGNATURE: Gibran Cosby MD PATIENT NAME: Chioma Rainey DATE: November 17, 2024 TIME: 2:38 PM CSN: [id number] NURSING PROG Observed: 11/17/2024 2:08 PM Status: COMPLETED Source: [facility] ID: [id number] Author: LIAN GUZMAN RN Service: ? Author Type: Registered Nurse Type: Nursing Progress Note Filed: 11/17/2024 14:08 Note Text: PRE OP LEARNING ASSESSMENT PROCEDURE/SURGERY: GI PROCEDURES: EGD and ESU READINESS TO LEARN COGNITIVE ABILITY: Alert and oriented MOTIVATION TO LEARN: Eager FAMILY SUPPORT: High - Very involved in pt care PATIENT LEARNS BEST BY: Individual Instruction Verbal Instruction FACTORS AFFECTING LEARNING: None PHYSICAL LIMITATIONS AFFECTING LEARNING: None Electronically Signed By: Lian Guzman RN In Department: GASTROENTEROLOGY CBC WITH DIFF Collected: 11/09/2024 6:00 AM Status: F Source: [facility] TYPE CODE TESTS RESULT OUT OF RANGE REFERENCE UNITS LAB WBC(LOINC) WBC Count 6.5 3.5-11.3 k/uL LAB RBC(LOINC) RBC Count 3.59 Low 3.95-5.11 m/uL LAB HGB(LOINC) Hemoglobin 11.9 11.9-15.1 g/dL LAB HCT(LOINC) Hematocrit 35.1 Low 36.3-47.1 % LAB MCV(LOINC) MCV 97.8 82.6-102.9 fL LAB MCH(LOINC) MCH 33.1 25.2-33.5 pg LAB MCHC(INC) MCHC 33.9 28.4-34.8 g/dL LAB RDW(INC) RDW 12.3 11.8-14.4 % LAB PLT(INC) Platelet Count 144 138-453 k/uL LAB MPVX(INC) MPV 9.8 8.1-13.5 fL LAB NRBCS([facility]) NRBC Automated 0.0 0.0 per 100 WBC LAB SEG(INC) Neutrophil (Seg) 59 36-65 % LAB LYM(LOINC) Lymphocyte 22 Low 24-43 % LAB MON(LOINC) Monocyte 15 High 3-12 % LAB EO(LOINC) Eosinophil 3 1-4 % LAB BASO(INC) Basophil 1 0-2 % LAB IGRAN(LOINC) Immature Granulocyte 0 0 % LAB ASEG(LOINC) Abs.Neutrophil (Seg) 3.84 1.50-8.10 k/uL LAB ALYM(LOINC) Abs. Lymph 1.43 1.10-3.70 k/uL LAB AMONO(LOINC) Abs. Monocyte 0.99 0.10-1.20 k/u L LAB AEO(LOINC) Abs. Eosinophil 0.17 0.00-0.44 k/u L LAB ABASO(LOINC) Abs. Basophil 0.04 0.00-0.20 k/u L LAB AIGRAN(LOINC) Abs.Imm.Granulo cyte <0.03 0.00-0.30 k/uL Performed By: #### CDP, CMPX , LIP #### [facility] [address] [place] [address] Business Job Titles: Kye Jasso MD COMP METABOLIC WY/RFX MG Collected: 05/2024 6:00 AM Status: F Source: [facility] TYPE CODE TESTS RESULT OUT OF RANGE REFERENCE UNITS LAB NA(LOINC) NA (Sodium) 141 136-145 mmol/L LAB K(LOINC) K (Potassium) 3.7 3.7-5.3 mmol/L LAB CL(LOINC) Chloride 107 98-107 mmol/L LAB HCO(LOINC) CO2 22 20-31 mmol/L LAB GAP(LOINC) Anion Gap 12 9-16 mmol/L LAB GLU(LOINC) Glucose 98 74-99 mg/dL LAB BUN(LOINC) BUN (Urea N) 3 Low 6-20 mg/dL LAB CRE(LOINC) Creatinine 0.6 0.50-0.90 [...] renal tubular secretion. LAB BUNCRE(LOINC) BUN/CRE Ratio 5 Low 9-20 LAB CA(LOINC) Calcium 8.9 8.6-10.4 mg/dL LAB TP(LOINC) Protein, Total 5.6 Low 6.6-8.7 g/dL LAB ALB(LOINC) Albumin 3.5 3.5-5.2 g/dL LAB AG(LOINC) Albumin/Glob Ratio 1.7 1.0-2.5 LAB TBIL(LOINC) Bilirubin, Total 0.2 0.00-1.20 mg/dL LAB ALP(LOINC) Alkaline Phos 186 High 35-104 U/L LAB ALT(LOINC) ALT 79 High 10-35 U/L LAB AST(LOINC) AST 62 High 10-35 U/L Performed By: #### CDP, CMPX , LIP #### [facility] [address] [place], [place] [id number] Business Job Titles: Kye Jasso MD LIPASE Collected: 5 6:00 AM Status: F Source: [facility] TYPE CODE TESTS RESULT OUT OF RANGE REFERENCE UNITS LAB LIP(LOINC) Lipase 19 13-60 U/L Performed By: #### CDP, CMPX , LIP #### [facility] [address] [place], [place] [id number] Business Job Titles: Kye Jasso MD MRI ABDOMEN W WO CONTRAST MRCP Observed: 11/08/2024 2:46 PM Status: F Source: [facility] EXAMINATION: MRI OF THE ABDOMEN WITH AND WITHOUT CONTRAST AND MRCP 11/08/2024 11:29 am TECHNIQUE: Multiplanar multisequence MRI of the abdomen was performed with and without the administration of intravenous contrast. After initial T2 axial and coronal images, thick slab, thin slab and 3D coronal MRCP sequences were obtained without the administration of intravenous contrast. MIP images are provided for review. COMPARISON: CT abdomen 04/07/2024 HISTORY: Elevated LFTs. Acute on chronic pancreatitis Cholecystectomy FINDINGS: TECHNICAL: Several of the image series are significantly degraded, resulting from motion during study acquisition, blurring detail and resulting in misregistration artifact. Overall not a significant limiting factor for the study. PANCREAS: Normal signal characteristics and morphology. No focal pancreatic parenchymal enhancement abnormality. GALLBLADDER: OTHER ORGANS: The spleen and adrenal glands appear unremarkable. Liver and kidneys appear unremarkable. MRCP: The common bile duct measures 11 mm; no choledocholithiasis or stricture evident.. The pancreatic duct is unchanged from prior studies, 3-4 mm; no stone or stricture evident. PERITONEUM/RETROPERITONEUM: Unremarkable appearance of the aorta. No aneurysm. Unremarkable appearance of the IVC. No adenopathy or fluid. BONES/SOFT TISSUES: Unremarkable appearance. LOWER CHEST: Visualized portions of the lungs are clear. Cardiac and posterior mediastinal structures visualized are unremarkable. VISUALIZED GI/BOWEL: Prominent duodenal diverticulum. 3D images: 3D reconstructed images were performed on a separate workstation and provided for review. These images were reviewed. IMPRESSION: 1. Mild intra and extrahepatic bile duct dilatation status post cholecystectomy typical of reservoir effect. 2. Unremarkable appearance of the pancreas. 3. Unchanged appearance of the biliary tree, no choledocholithiasis or stricture. 4. Stable appearance of the pancreas without discrete lesion or significant pancreatic duct dilatation. Upper normal to mild pancreatic duct dilatation is stable almost certainly related to reservoir effect status post cholecystectomy. 5. Prominent duodenal diverticula. Interpreted by: Alexi Olivo MD Signed by: Alexi Olivo MD 11/08/24 Final result CBC WITH DIFF Collected: 11/08/2024 5:45 AM Status: F Source: [facility] TYPE CODE TESTS RESULT OUT OF RANGE REFERENCE UNITS LAB WBC(LOINC) WBC Count 5.8 3.5-11.3 k/uL LAB RBC(LOINC) RBC Count 3.61 Low 3.95-5.11 m/uL LAB HGB(LOINC) Hemoglobin 11.9 11.9-15.1 g/dL LAB HCT(LOINC) Hematocrit 35.6 Low 36.3-47.1 % LAB MCV(LOINC) MCV 98.6 82.6-102.9 fL LAB MCH(LOINC) MCH 33.0 25.2-33.5 pg LAB MCHC(LOINC) MCHC 33.4 28.4-34.8 g/dL LAB RDW(LOINC) RDW 12.5 11.8-14.4 % LAB PLT(LOINC) Platelet Count 153 138-453 k/uL LAB MPVX(LOINC) MPV 9.8 8.1-13.5 fL LAB NRBCS(LOINC) NRBC Automated 0.0 0.0 per 100 WBC LAB SEG(LOINC) Neutrophil (Seg) 51 36-65 % LAB LYM(LOINC) Lymphocyte 29 24-43 % LAB MON(LOINC) Monocyte 17 High 3-12 % LAB EO(LOINC) Eosinophil 2 1-4 % LAB BASO(LOINC) Basophil 1 0-2 % LAB IGRAN(LOINC) Immature Granulocyte 0 0 % LAB ASEG(LOINC) Abs.Neutrophil (Seg) 2.91 1.50-8.10 k/uL LAB ALYM(LOINC) Abs. Lymph 1.70 1.10-3.70 k/uL LAB AMONO(LOINC) Abs. Monocyte 1.00 0.10-1.20 k/u L LAB AEO(LOINC) Abs. Eosinophil 0.13 0.00-0.44 k/u L LAB ABASO(LOINC) Abs. Basophil 0.04 0.00-0.20 k/u L LAB AIGRAN(LOINC) Abs.Imm.Granulo cyte <0.03 0.00-0.30 k/uL Performed By: #### LIP, CDP, CMPX #### [facility] [address] [place] [address] Business Job Titles: Kye Jasso MD COMP METABOLIC WY/RFX MG Collected: 04/2024 5:45 AM Status: F Source: [facility] TYPE CODE TESTS RESULT OUT OF RANGE REFERENCE UNITS LAB NA(LOINC) NA (Sodium) 139 136-145 mmol/L LAB K(LOINC) K (Potassium) 4.2 3.7-5.3 mmol/L LAB CL(LOINC) Chloride 107 98-107 mmol/L LAB HCO(LOINC) CO2 21 20-31 mmol/L LAB GAP(LOINC) Anion Gap 11 9-16 mmol/L LAB GLU(LOINC) Glucose 96 74-99 mg/dL LAB BUN(LOINC) BUN (Urea N) 4 Low 6-20 mg/dL LAB CRE(LOINC) Creatinine 0.8 0.50-0.90 [...] renal tubular secretion. LAB BUNCRE(LOINC) BUN/CRE Ratio 5 Low 9-20 LAB CA(LOINC) Calcium 9.0 8.6-10.4 mg/dL LAB TP(LOINC) Protein, Total 5.6 Low 6.6-8.7 g/dL LAB ALB(LOINC) Albumin 3.6 3.5-5.2 g/dL LAB AG(LOINC) Albumin/Glob Ratio 1.7 1.0-2.5 LAB TBIL(LOINC) Bilirubin, Total <0.2 0.00-1.20 mg/dL LAB ALP(LOINC) Alkaline Phos 203 High 35-104 U/L LAB ALT(LOINC) ALT 126 High 10-35 U/L LAB AST(LOINC) AST 171 High 10-35 U/L Performed By: #### LIP, CDP, CMPX #### [facility] [address] [place] [address] Business Job Titles: Kye Jasso MD LIPASE Collected: 5:45 AM Status: F Source: [facility] TYPE CODE TESTS RESULT OUT OF RANGE REFERENCE UNITS LAB LIP(INC) Lipase 30 13-60 U/L Performed By: #### LIP, CDP, CMPX #### [facility] [address] [place] [address] Business Job Titles: Kye Jasso MD CBC WITH DIFF Collected: 11/07/2024 5:55 AM Status: F Source: [facility] TYPE CODE TESTS RESULT OUT OF RANGE REFERENCE UNITS LAB WBC(LOINC) WBC Count 7.1 3.5-11.3 k/uL LAB RBC(LOINC) RBC Count 3.91 Low 3.95-5.11 m/uL LAB HGB(LOINC) Hemoglobin 12.9 11.9-15.1 g/dL LAB HCT(LOINC) Hematocrit 39.3 36.3-47.1 % LAB MCV(LOINC) MCV 100.5 82.6-102.9 fL LAB MCH(LOINC) MCH 33.0 25.2-33.5 pg LAB MCHC(LOINC) MCHC 32.8 28.4-34.8 g/dL LAB RDW(LOINC) RDW 12.7 11.8-14.4 % LAB PLT(LOINC) Platelet Count 177 138-453 k/uL LAB MPVX(LOINC) MPV 10.4 8.1-13.5 fL LAB NRBCS(LOINC) NRBC Automated 0.0 0.0 per 100 WBC LAB SEG(LOINC) Neutrophil (Seg) 59 36-65 % LAB LYM(LOINC) Lymphocyte 27 24-43 % LAB MON(LOINC) Monocyte 11 3-12 % LAB EO(LOINC) Eosinophil 2 1-4 % LAB BASO(LOINC) Basophil 1 0-2 % LAB IGRAN(LOINC) Immature Granulocyte 0 0 % LAB ASEG(LOINC) Abs.Neutrophil (Seg) 4.22 1.50-8.10 k/uL LAB ALYM(LOINC) Abs. Lymph 1.93 1.10-3.70 k/uL LAB AMONO(LOINC) Abs. Monocyte 0.78 0.10-1.20 k/u L LAB AEO(LOINC) Abs. Eosinophil 0.15 0.00-0.44 k/u L LAB ABASO(LOINC) Abs. Basophil 0.04 0.00-0.20 k/u L LAB AIGRAN(LOINC) Abs.Imm.Granulo cyte <0.03 0.00-0.30 k/uL Performed By: #### LIP, CMPX , CDP #### [facility] [address] [place] [address] Business Job Titles: Kye Jasos MD COMP METABOLIC WY/RFX MG Collected: 03/2024 5:55 AM Status: F Source: [facility] TYPE CODE TESTS RESULT OUT OF RANGE REFERENCE UNITS LAB NA(LOINC) NA (Sodium) 139 136-145 mmol/L LAB K(LOINC) K (Potassium) 4.5 3.7-5.3 mmol/L LAB CL(LOINC) Chloride 106 98-107 mmol/L LAB HCO(LOINC) CO2 23 20-31 mmol/L LAB GAP(LOINC) Anion Gap 10 9-16 mmol/L LAB GLU(LOINC) Glucose 92 74-99 mg/dL LAB BUN(LOINC) BUN (Urea N) 6 6-20 mg/dL LAB CRE(LOINC) Creatinine 0.8 0.50-0.90 [...] renal tubular secretion. LAB BUNCRE(LOINC) BUN/CRE Ratio 8 Low 9-20 LAB CA(LOINC) Calcium 9.1 8.6-10.4 mg/dL LAB TP(LOINC) Protein, Total 6.1 Low 6.6-8.7 g/dL LAB ALB(LOINC) Albumin 3.9 3.5-5.2 g/dL LAB AG(INC) Albumin/Glob Ratio 1.7 1.0-2.5 LAB TBIL([facility]) Bilirubin, Total 0.3 0.00-1.20 mg/dL LAB ALP([facility]) Alkaline Phos 143 High 35-104 U/L LAB ALT([facility]) ALT 42 High 10-35 U/L LAB AST([facility]) AST 145 High 10-35 U/L Performed By: #### LIP, CMPX , CDP #### [facility] [address] [place] [address] Business Job Titles: Kye Jasso MD LIPASE Collected: 5:55 AM Status: F Source: [facility] TYPE CODE TESTS RESULT OUT OF RANGE REFERENCE UNITS LAB LIP([facility]) Lipase 285 High 13-60 U/L Performed By: #### LIP, CMPX , CDP #### [facility] [address] [place] [address] Business Job Titles: Kye Jasso MD CBC WITH DIFF Collected: 11/06/2024 7:34 PM Status: F [facility] [facility] TYPE CODE TESTS RESULT OUT OF RANGE REFERENCE UNITS LAB WBC([facility]) WBC Count 7.8 3.5-11.3 k/uL LAB RBC([facility]) RBC Count 4.41 3.95-5.11 m/uL LAB HGB(LOINC) Hemoglobin 14.5 11.9-15.1 g/dL LAB HCT(INC) Hematocrit 43.1 36.3-47.1 % LAB MCV(LOINC) MCV 97.7 82.6-102.9 fL LAB MCH(LOINC) MCH 32.9 25.2-33.5 pg LAB MCHC(LOINC) MCHC 33.6 28.4-34.8 g/dL LAB RDW(LOINC) RDW 12.2 11.8-14.4 % LAB PLT(LOINC) Platelet Count 224 138-453 k/uL LAB MPVX(LOINC) MPV 9.5 8.1-13.5 fL LAB NRBCS(LOINC) NRBC Automated 0.0 0.0 per 100 WBC LAB SEG(LOINC) Neutrophil (Seg) 65 36-65 % LAB LYM(LOINC) Lymphocyte 21 Low 24-43 % LAB MON(LOINC) Monocyte 12 3-12 % LAB EO(LOINC) Eosinophil 1 1-4 % LAB BASO(LOINC) Basophil 1 0-2 % LAB IGRAN(LOINC) Immature Granulocyte 0 0 % LAB ASEG(LOINC) Abs.Neutrophil (Seg) 4.97 1.50-8.10 k/uL LAB ALYM(LOINC) Abs. Lymph 1.66 1.10-3.70 k/uL LAB AMONO(LOINC) Abs. Monocyte 0.96 0.10-1.20 k/u L LAB AEO(LOINC) Abs. Eosinophil 0.10 0.00-0.44 k/u L LAB ABASO(LOINC) Abs. Basophil 0.08 0.00-0.20 k/u L LAB AIGRAN(LOINC) Abs.Imm.Granulo cyte <0.03 0.00-0.30 k/uL Performed By: #### CP, LIP, CDP #### [facility] [address] [place] [address] Business Job Titles: Kye Jasso MD COMP METABOLIC PROF Collected: 11/07/19 25 7:34 PM Status: F Source: [facility] TYPE CODE TESTS RESULT OUT OF RANGE REFERENCE UNITS LAB NA(LOINC) NA (Sodium) 140 136-145 mmol/L LAB K(LOINC) K (Potassium) 3.7 3.7-5.3 mmol/L LAB CL(LOINC) Chloride 104 98-107 mmol/L LAB HCO(LOINC) CO2 24 20-31 mmol/L LAB GAP(LOINC) Anion Gap 12 9-16 mmol/L LAB GLU(LOINC) Glucose 97 74-99 mg/dL LAB BUN(LOINC) BUN (Urea N) 7 6-20 mg/dL LAB CRE(LOINC) Creatinine 0.8 0.50-0.90 mg/dL LAB EGFR(LOINC) eGFR 84 >60 mL/min/1. 73m2 Result Comment: These results [...] BUN/CRE Ratio 9 9-20 LAB CA(LOINC) Calcium 10.4 8.6-10.4 mg/dL LAB TP(LOINC) Protein, Total 7.3 6.6-8.7 g/dL LAB ALB(LOINC) Albumin 4.4 3.5-5.2 g/dL LAB AG(LOINC) Albumin/Glob Ratio 1.5 1.0-2.5 LAB TBIL(LOINC) Bilirubin, Total <0.2 0.00-1.20 mg/dL LAB ALP(LOINC) Alkaline Phos 145 High 35-104 U/L LAB ALT(LOINC) ALT 13 10-35 U/L LAB AST(LOINC) AST 26 10-35 U/L Performed By: #### CP, LIP, CDP #### [facility] [address] [place] [address] [place] [address] Business Job Titles: Kye Jasso MD LIPASE Collected: 7:34 PM Status: F Source: [facility] TYPE CODE TESTS RESULT OUT OF RANGE REFERENCE UNITS LAB LIP(LOINC) Lipase 247 High 13-60 U/L Performed By: #### CP, LIP, CDP #### [facility] [address] [place] [address] [place] [address] Business Job Titles: Kye Jasso MD PROGRESS Observed: 11/02/2024 12:56 PM Status: COMPLETED Source: [facility] HNO ID: [id number] Author: LINDSEY WILLARD APRN.TOOL STRAIGHTENER Service: ? Author Type: Nurse Practitioner Type: Progress Notes Filed: 11/03/2024 10:12 Note Text: New Patient/Consult REASON FOR VISIT Chioma Rainey is a 54 year old year old female who is scheduled for a consult at the request of Self. . CHIEF COMPLAINT Patient presents with: New Patient: Chronic Pancreatitis My final recommendations will be communicated back to the requesting physician by the way of the shared medical record, fax, or via US Mail. HISTORY: The patient is a 54-year-old female with chronic pancreatitis and a history of cholecystectomy, presenting for evaluation of recurrent abdominal pain. She reports frequent flare-ups of pancreatitis, often occurring in clusters, with up to 6 ER visits per month. Each flare is characterized by severe mid-epigastric pain, nausea, diarrhea, and vomiting. Between flares, her stools remain loose but are less frequent. She has received annual celiac plexus blocks, which provide temporary relief for a few months, but she notes diminishing efficacy over time, reportedly due to increasing scar tissue. She was previously on Creon, which she felt was beneficial, but it was discontinued by her GI physician. She was also previously on Bentyl, which she felt lost effectiveness over time. She has a history of esophageal narrowing, for which she underwent a single banding procedure, resulting in improved dysphagia. She experiences heartburn 3-4 times per week, managed with Pepcid, which provides partial relief. She was previously on amitriptyline and mirtazapine, which she felt reduced flare frequency and improved her mental state, but these were discontinued when her prior physician retired. She avoids greasy foods and reports a low overall food intake, as she feels that anything and everything she eats can trigger a flare. Her appetite is preserved, and her weight has been stable. She denies hematochezia. 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 She denies marijuana use. She has no family history of pancreatitis or pancreatic cancer. PERTINENT WORK UP TO DATE ED visit 10/26/2024 Patient is here stating she is having an ongoing flare-up of her chronic pancreatitis. She has been seen multiple times in the last month and has had multiple workups. She had a CT scan recently without an acute process. She was seen 2 days ago at [facility] and had a lipase of 58. I do not think she needs another workup at this point. She states she has an appointment with a adult basic education instructor on Thursday. I will get her some pain control nausea control and get her home. EUS w/ CPB 01/19/2024 Findings: ENDOSCOPIC FINDING: : No gross lesions [...] needle was advanced to an injection site in the area of the celiac artery take-off. Needle aspiration was performed prior to injection to exclude entry into a blood vessel. A total of 20 mL of 0.25% bupivacaine and 80 mg of triamcinolone (40 mg/mL) were injected for the celiac plexus block. The needle was then withdrawn. Impression: - No gross lesions in the entire esophagus, stomach, and duodenum. - Pancreatic parenchymal abnormalities consisting of hyperechoic strands were noted in the entire pancreas consistent with patient's known history of chronic pancreatitis. Celiac plexus block performed. - Normal diameter of the main pancreatic duct up to 3 mm. - No significant pathology in the left lobe of the liver and normal CBD diameter up to 5 mm. - No specimens collected. Recommendation: - The patient will be observed post-procedure, until all discharge criteria are met. - Discharge patient to home. - Clear liquid diet today, then advance as tolerated to resume previous diet. - Continue present medications. - Return to GI pancreas clinic as previously scheduled. - Patient has a contact number available for emergencies. The signs and symptoms of potential delayed complications were discussed with the patient. Return to normal activities tomorrow. Written discharge instructions were provided to the patient. CT Abdomen/Pelvis 09/19/2024 Impression: Normal CT abdomen and pelvis. Findings: The previous described dilatation of the [...] images of the lung bases are unremarkable. MONIQUE Gallo 06/18/2016 Assessment IMPRESSION: A 45 yo female with history of ETOH abuse, epigastric pain and N/V that has been attributed to chronic pancreatitis, thou minimal features described on CT scan. She has had two previous EUS celiac axis block, but did not respond to second block. She is interested in total pancreatectomy and islet autotransplantation. I would first like to establish her diagnosis of early CP. 1. MRCP with secretin 2. EUS with PFT, if features of CP seen on EUS will consider CP block 3. Patient would like to hear more about surgical options, will schedule visit with pancreatic surgeon when she returns for testing. GASTROINTESTINAL REVIEW OF SYSTEMS Difficulty swallowing / foods sticking in throat: Yes had procedure to dilate esophagus Heartburn: Yes takes Pepcid Chest Pain: No Filling up quickly at meals: No Loss of appetite: No Nausea: Yes Vomiting: Yes Abdominal pain: Yes Bloody or black, bowel movements: No Constipation: No Diarrhea: Yes Vomiting blood: No Recent change in weight: No Has multiple attacks of pancreatitis each month with epigastric pain, nausea/vomiting and diarrhea Was taking Creon and was helping, local GI discontinued Creon Was taking Elavil and says it works wonders but has stopped since her doctor left No ETOH, smokes about a half pack per day PHYSICAL FINDINGS OF NOTE: Ht 157.5 cm (5' 2 ) BMI 23.78 kg/m? General - Normal, healthy, cooperative, in no acute distress Able to interact verbally by video conference Psych - ORIENTATION: normal to time place, person and situation Mood/Affect: AFFECT AND MOOD: Normal Head/Neuro - Normal size and shape Facial appearance normal Pulmonary - respiratory effort normal Cardiovascular - patient describes extremities normal, warm, no cyanosis,no clubbing, and no edema Abdominal - Not performed Skin - abnormal lesions not visualized Motor - patient seen sitting with Normal appearing strength and coordination IMPRESSION AND PLAN Chioma Rainey is a 54 year old female who presents today for consult for pancreatitis. She has past medical history of gallstones s/p cholecystectomy, anemia and chronic ETOH pancreatitis. 1. Chronic pancreatitis, unspecified pancreatitis type (HCC) (K86.1) 2. Exocrine pancreatic insufficiency (HCC) (K86.81) 3. Epigastric pain (R10.13) 4. Loose stools (R19.5) Chronic pancreatitis with frequent flare-ups characterized by epigastric pain, nausea, vomiting, and diarrhea; most recent CT scan from September 19 was essentially normal. Exocrine pancreatic insufficiency contributing to loose stools. - Restart Creon; instructed to take 2 capsules with each meal (breakfast, lunch, dinner) and 1 capsule with snacks. - Restart Elavil 25 mg at bedtime; 90-day supply with 3 refills. - Order endoscopic ultrasound-guided celiac plexus block. - Discussed potential functional abdominal pain component related to anxiety or stress. - Advised well-balanced, low-fat diet with fruits and vegetables. - Educated on the importance of taking Creon immediately before meals. - Discussed pain management referral as an option if plexus blocks become less effective. 5. Heartburn (R12) Heartburn occurring 3-4 times per week; currently managed with Pepcid. - Continue Pepcid as needed; discussed option to consider stronger medication if symptoms worsen. 6. Tobacco use (Z72.0) Current smoker, approximately half a pack per day; history of alcohol use, sober for 12 years. - Advised smoking cessation due to its negative impact on pancreatic health. I spent more than 30 minutes hrsy-re-hnna with the patient and over half the time was devoted to counseling and/or coordination of care. Recording using [employer] software for draft documentation of the visit was discussed with the patient/authorized claims representative; all questions welcomed and answered. Patient/authorized claims representative agreed to proceed Lindsey Willard APRN.NAOMY CT ABDOMEN PELVIS W CON Observed: 2024 4:36 PM Status: COMPLETED Source: [facility] [place] [address] CT Scan Report Signed Patient: Chioma Arciniega MR#: [id number] : 1970 Acct:[id number] Age/Sex: 54 / F ADM Date: 10/28/24 Loc: ER Room: Type: [facility] ER Attending Dr: Copies to: Andrew [...] IMPRESSION: No acute findings. Impression dictated by: Cruziot Mendieta M.D. 10/28/2024 4:38 PM Dictation Location: [place] [address] Transcribed By: [facility] 10/28/24 1638 Dictated By: Cruzito Mendieta DO 10/28/24 1636 Signed By: <Electronically signed by Cruzito Mendieta DO in OV> 10/28/24 1638 DIPSTICK AND MICROSCOPIC Collected: 3:58 PM Status: F Source: [facility] Order Comment: Name Collecti on Type:: Voided TYPE CODE TESTS RESULT OUT OF RANGE REFERENCE UNITS LAB UCOL Color,Urine Light-Yellow Yellow LAB UAPP Appearance,Uri ne Clear Clear LAB USG Specificy [place],Urine 1.017 Normal 1.001-1.030 LAB UPH pH,Urine 6.0 Normal 5.0-9.0 LAB ULE Leukocyte Esterase,Urine Negative Negative LAB UNIT Nitrite,Urine Negative Negative LAB UPRO Protein,Urine Negative Negative mg/dL LAB UGL Glucose,Urine (UA) Normal Normal mg/dL LAB UKET Ketones,Urine Negative Negative LAB UURO Urobilinogen,U rine Normal Normal mg/dL LAB UBIL Bilirubin,Urin e Negative Negative LAB UBLD Occult Blood,Urine 1+ Negative Result Comment: PERFORMED BY : [place] [address] PATHOLOGIST [employer]E WORKER TARA BENSON M.D. LAB URBC RBC,Urine 1-2 0-4 [HPF] LAB UWBC WBC,Urine 1-2 0-4 [HPF] LAB USQEPI Squamous Epithelial Cell,Urine 1-2 0-2 [HPF] LAB UBACT Bacteria,Urine Rare None Seen [HPF] LAB UHYALC Hyaline Casts,Urine None 0-8 [LPF] LAB MUCUS Mucus,Urine Rare [LPF] Result Comment: PERFORMED BY : [place] [address] PATHOLOGIST [employer] WORKER TARA BENSON M.D. Performed By: #### ADDONUAPL #### [address] COMPLETE BLOOD COUNT AUTO DIFF Collected: 10/28/2024 2:41 PM Status: F Source: [facility] TYPE CODE TESTS RESULT OUT OF RANGE REFERENCE UNITS LAB WBC White Blood Count 8.6 Normal 3.8-11.6 [CFU]/mL LAB UNWBC Uncorrected WBC 8.6 Normal 3.8-11.6 10*3/uL LAB RBC Red Blood Count 4.30 Normal 3.60-5.00 10*6/u L LAB HGB Hemoglobin 14.5 Normal 11.8-15.4 g/dL LAB HCT Hematocrit 42.2 Normal 34.0-46.4 % LAB MCV Mean Corpuscular Volume 98.2 Normal 80-100 fL LAB MCH Mean Corpuscular Hemoglobin 33.7 Normal 24.7-34.3 pg LAB MCHC Mean Corpuscular HGB Conc 34.3 Normal 32.0-35.0 g/dL LAB RDW Red Cell Distribution Width 13.6 Normal 11.9-15.3 % LAB PLT Platelet Count 258 Normal 150-450 10*3/uL LAB MPV Mean Platelet Volume 8.0 Normal 6.3-10.7 fL LAB MDW Monocyte Distribution Width 19.51 Normal 0.00-20.00 % LAB NE% Neutrophils % (Auto) 59.3 . % LAB LY% Lymphocytes % (Auto) 28.8 . % LAB MO% Monocytes % (Auto) 9.4 . % LAB EO% Eosinophils % (Auto) 1.5 . % LAB BA% Basophils % (Auto) 1.0 . % LAB NRBC% NRBC% 0.0 Normal 0-0.5 /100{WBC } LAB NE# Neutrophils # (Auto) 5.1 Normal 1.8-7.7 10*3/uL LAB LY# Lymphocytes # (Auto) 2.5 Normal 1.00-4.8 10*3/uL LAB MO# Monocytes # (Auto) 0.8 Normal 0.0-0.8 10*3/uL LAB EO# Eosinophils # (Auto) 0.1 Normal 0.0-0.45 10*3/uL LAB BA# Basophils # (Auto) 0.1 Normal 0.0-0.2 10*3/uL Result Comment: PERFORMED BY : [place] [address] PATHOLOGIST [employer]E WORKER TARA BENSON M.D. Performed By: #### CBC, LIPA SE, BMP, HEPATIC #### [address] HEPATIC PANEL Collected: 10/28/2024 2:41 PM Status: F Source: [facility] TYPE CODE TESTS RESULT OUT OF RANGE REFERENCE UNITS LAB TP Total Protein 7.3 Normal 6.4-8.9 g/dL LAB ALB Albumin Level 4.5 Normal 3.5-5.7 g/dL LAB GLOB Globulin 2.8 g/dL LAB AGRATIO Albumin/Globulin Ratio 1.6 LAB BILIT Bilirubin,Total 0.3 Normal 0.3-1.0 mg/dL LAB BILID Bilirubin,Direct 0.00 Low 0.03-0.18 mg/dL Result Comment: If the DBIL is less than 0.1, IBIL is not able to be calculated. LAB BILII Bilirubin,Indirect 0.3 mg/dL LAB AST Aspartate Amino Transferase 18 Normal 13-39 U/L LAB ALT Alanine Aminotransferase 10 Normal 7-52 U/L LAB ALP Alkaline Phosphatase 136 High 34-104 U/L Performed By: #### CBC, LIPA SE, BMP, HEPATIC #### [facility] [address] [place] [id number] [facility] BASIC METABOLIC PANEL Collected: 10/28/2024 2:41 PM Status: F Source: [facility] TYPE CODE TESTS RESULT OUT OF RANGE REFERENCE UNITS LAB GLU Glucose 95 Normal 70-100 mg/dL Result Comment: Random Gluco se Reference Range is dependent on time and content of last meal. Glucose of more than 200 mg/dL in a nonstressed, ambulatory subject supports the diagnosis of Diabetes Mellitus. ADA recommended reference range LAB BUN Blood Urea Nitrogen 10 Normal 7-25 mg/dL LAB CREATT Creatinine 0.84 Normal 0.60-1.20 mg/dL LAB GFReNR Estimated GFR >60.0 LAB NA Sodium 139 Normal 136-145 mmol/L LAB K Potassium 3.7 Normal 3.5-5.1 mmol/L LAB CL Chloride 104 Normal 98-107 mmol/L LAB CO2 Carbon Dioxide 30.4 Normal 21.0-31.0 mmol/L LAB GAP Anion Gap 8.3 Normal 6.0-15.0 LAB CA Calcium 10.2 Normal 8.6-10.3 mg/dL LAB CRCLPHA Creatinine Clr Calc Pharmacy 59.85 Performed By: #### CBC, LIPA SE, BMP, HEPATIC #### [facility] [address] [place] [id number] [facility] LIPASE Collected: 2:41 PM Status: F Source: [facility] TYPE CODE TESTS RESULT OUT OF RANGE REFERENCE UNITS LAB LIPASE Lipase 140.0 High 11.0-82.0 U/L Result Comment: PERFORMED BY : [place] [address] PATHOLOGIST [employer] WORKER TARA BENSON M.D. Performed By: #### CBC, LIPA SE, BMP, HEPATIC #### [place] [id number] [facility] ED PATIENT SUMMARY Observed: 10/24/2024 7:00 PM Status: F Source: [facility] ED Patient Summary [address] [address] Patient Discharge Instructions Person Information Name: CHIOMA ARCINIEGA Age: 54 Years Arrival Date: 10/24/2024 16:30:34 Discharge Diagnosis: Chronic pancreatitis Primary Care Physician: NONE, XXXX Provider Information Primary Provider: Darrel Ferrer DO [employer] Adviser:Marco A Aguilar PA-C The exam and treatment you received in the Emergency Department were for an urgent problem and are not intended as complete care. It is important that you follow up with a doctor, nurse practitioner, or physician???s marketing support assistant for ongoing care. If your symptoms [...] Follow-up Instructions: With: Address: When: Tiffanie Zepeda [address] [place] [address], [address], [place] [id number] [phone] Business (1) In 3 days 10/27/2024 Comments: Follow-up with your GI doctor. If you do not have 1 you may follow-up with Dr. Zepeda. With: Address: When: Raji JENSEN [address] [place] [address] Business (1) In 3 days 10/27/2024 Comments: [...] opioids can be used to help relieve ddlslltp-kl-rrtoox pain and are often prescribed following a [...] guidance from the Food and Drug Administration (www.fda.gov/Drugs/ResourcesForYou). ??? Visit www.cdc.gov/drugoverdose to learn about the risks of opioids abuse and overdose. ??? If you believe you may be struggling with addiction, tell your health urgent care physician assistant and ask for guidance or call [facility]???S [employer] Helpline at [phone]-DWHS. v Source: [place] Department of Health and Human Services/Center for Disease Control & Prevention [facility] Medications Given: Medication Dose Route Sodium Chloride 0.9% intravenous solution 1000.00 mL IV Left Upper Arm ondansetron 4.00 mg IV Push Left Upper Arm HYDROmorphone 0.50 mg IV Push Left Upper Arm HYDROmorphone 0.50 mg IV Push Left Upper Arm Medication Information: Medications to Continue with No Changes Other Medications promethazine (promethazine 25 mg Tab) 1 Tablets By Mouth 3 times a day. Refills: 0. Comment: Patient Portal You may access all of your results and other medical record information on our secure patient portal. If you are not signed up for this yet, please contact [employer] at [phone] to get signed up today. FILOMENA Award Nomination The FILOMENA (Diseases Attacking the Immune SYstem) Award is an international recognition program that honors and celebrates the skillful, compassionate care nurses provide every day. Anyone who experiences or observes amazing care being provided by a nurse is encouraged to submit a nomination. To nominate your nurse, use your smart phone to scan the QR code below. Language Information Language assistance services are available as needed. You may receive a survey from [employer] asking you to rate your care experience. Your feedback is important and will help us understand what we do well and how we can improve the quality of care we provide to you, your loved ones and our community. It???s an honor to serve you. Thank you for choosing [facility] Patient Education Materials: Chronic Pancreatitis Chronic pancreatitis is permanent inflammation [...] sudden (acute). When you have repeated or long- lasting episodes of acute pancreatitis, damage to the [...] urine pale yellow. General instructions ??? Take cnrt-kil-cxxcfwe and prescription medicines only as told by your health care provider. These include vitamin supplements. ??? Ask your health care provider if the medicine prescribed to you: ? Requires you to avoid driving or using machinery. ? Can cause constipation. You may need to take these actions to prevent or treat constipation: ? Take ywhf-gkn-ndxasvw or prescription medicines. ? Eat foods that are high in fiber, such as beans, whole grains, and fresh fruits and vegetables. ? Limit foods that are high in fat and processed sugars, such as fried or sweet foods. ??? Do not use any products that contain nicotine or tobacco. These products include cigarettes, chewing tobacco, and vaping devices, such as e-cigarettes. If you need help quitting, ask your health care provider. ??? If directed, check your blood sugar at home as told. ??? Keep all follow-up visits. This is important. Contact a health care provider if: ??? You have pain that does not get better with medicine. ??? You have a fever. ??? You have sudden weight loss. Get help right away if: ??? Your pain suddenly gets worse. ??? You have sudden swelling in your abdomen. ??? You start to vomit often. ??? You have diarrhea that does not go away. ??? You vomit blood or have blood in your stool. ??? You become confused or you have trouble thinking clearly. These symptoms may be an emergency. Get help right away. Call 911. ??? Do not wait to see if the symptoms will go away. ??? Do not drive yourself to the hospital. Summary ??? Chronic pancreatitis is permanent inflammation and scarring of the pancreas that leads to pancreatic dysfunction. Damage to the pancreas may affect digestion, may cause pain in the upper abdomen and back, and may cause diabetes. Inflammation can also irritate other organs in the abdomen near the pancreas. ??? Common causes of this condition are heavy alcohol use, gallstones, increased (elevated) levels of triglycerides, and certain medicines. ??? To manage this condition: control pain, replace enzymes, and do not drink alcohol. This information is not intended to replace advice given to you by your health care provider. Make sure you discuss any questions you have with your health care provider. Document Revised: 01/14/2022 Document Reviewed: 01/14/2022 Elsevier Patient Education ? 2023 [employer] JANUSZ Christopher MICHELLE , have received the following patient education materials/instructions and have verbalized understanding: Patient Education Materials: Chronic Pancreatitis Follow-up Instructions: With: Address: When: Tiffanie Zepeda [address] [facility], [address], [address] [phone] Business (1) In 3 days 10/27/2024 Comments: Follow-up with your GI doctor. If you do not have 1 you may follow-up with Dr. Zepeda. With: Address: When: Raji JENSEN [address] [place] [address] Business (1) In 3 days 10/27/2024 Comments: Follow-up with your primary care doctor. You do not have 1 you may follow-up with Dr. Jensen. Patient Signature Date Clinician/Nurse Signature Date 10/24/2024 19:00:44 ED PATIENT EDUCATION NOTE Observed: 10/07 7:00 PM Status: F Source: [facility] ED Patient Education Note Endocrinology Chronic Pancreatitis [...] sudden (acute). When you have repeated or long- lasting episodes of acute pancreatitis, damage to the [...] urine pale yellow. General instructions ??? Take kuvh-gnu-kopvqga and prescription medicines only as told by your health care provider. These include vitamin supplements. ??? Ask your health care provider if the medicine prescribed to you: ? Requires you to avoid driving or using machinery. ? Can cause constipation. You may need to take these actions to prevent or treat constipation: ? Take zrtq-czd-otxnxlu or prescription medicines. ? Eat foods that are high in fiber, such as beans, whole grains, and fresh fruits and vegetables. ? Limit foods that are high in fat and processed sugars, such as fried or sweet foods. ??? Do not use any products that contain nicotine or tobacco. These products include cigarettes, chewing tobacco, and vaping devices, such as e-cigarettes. If you need help quitting, ask your health care provider. ??? If directed, check your blood sugar at home as told. ??? Keep all follow-up visits. This is important. Contact a health care provider if: ??? You have pain that does not get better with medicine. ??? You have a fever. ??? You have sudden weight loss. Get help right away if: ??? Your pain suddenly gets worse. ??? You have sudden swelling in your abdomen. ??? You start to vomit often. ??? You have diarrhea that does not go away. ??? You vomit blood or have blood in your stool. ??? You become confused or you have trouble thinking clearly. These symptoms may be an emergency. Get help right away. Call 911. ??? Do not wait to see if the symptoms will go away. ??? Do not drive yourself to the hospital. Summary ??? Chronic pancreatitis is permanent inflammation and scarring of the pancreas that leads to pancreatic dysfunction. Damage to the pancreas may affect digestion, may cause pain in the upper abdomen and back, and may cause diabetes. Inflammation can also irritate other organs in the abdomen near the pancreas. ??? Common causes of this condition are heavy alcohol use, gallstones, increased (elevated) levels of triglycerides, and certain medicines. ??? To manage this condition: control pain, replace enzymes, and do not drink alcohol. This information is not intended to replace advice given to you by your health care provider. Make sure you discuss any questions you have with your health care provider. Document Revised: 01/14/2022 Document Reviewed: 01/14/2022 [employer] Patient Education ? 2023 [employer]. ED CLINICAL SUMMARY Observed: 10/24/2024 7:00 PM Status: F Source: [facility] ED Clinical Summary [address] [address] ED Clinical Summary Person Information Name: CHIOMA ARCINIEGA [place] Age: 54 Years : 1970 Sex: Female Language: Armenian PCP: NONE, XXXX Marital Status: Visit Id: [...] 10/24/2024 19:00:42 10/24/2024 19:00:42 10/24/2024 19:00:42 ADDRESS: [facility] E [facility] [id number] [facility] DOC NOTES: MEDICAL INFORMATION: Prescriptions Given: Medications to Continue with No Changes Other Medications promethazine (promethazine 25 mg Tab) 1 Tablets By Mouth 3 times a day. Refills: 0. PATIENT EDUCATION INFORMATION: Instructions: Chronic Pancreatitis Follow up: With: Address: When: Tiffanie Zepeda [address] [place] [address] [address] [phone] [employer] (1) In 3 days 10/27/2024 Comments: Follow-up with your GI doctor. If you do not have 1 you may follow-up with Dr. Zepeda. With: Address: When: Raji JENSEN [address] [place] [address] [employer] (1) In 3 days 10/27/2024 Comments: Follow-up with your primary care doctor. You do not have 1 you may follow-up with Dr. Jensen. DIAGNOSIS: Chronic pancreatitis UA WITH CULT RFLX Collected: 5 5:35 PM Status: F Source: [facility] TYPE CODE TESTS RESULT OUT OF RANGE REFERENCE UNITS LAB [id number](LOIN C) UA Spec Desc Clean Catch Normal LAB [id number](LOIN C) UA Color Colorless Abnormal Yellow Result Comment: Microscopic readings are only performed on those samples that meet specific criteria set forth by [facility]. LAB [id number](IN C) UA Clarity Clear Normal Clear LAB [id number](IN C) UA Spec Grav 1.006 Unknown 1.005-1.030 LAB [id number](IN C) UA pH 5.5 Unknown 5.0-9.0 LAB [id number](IN C) UA Protein Negative Normal Negative mg/dL LAB [id number](IN C) UA Glucose Negative Normal Negative mg/dL LAB [id number](IN C) UA Ketones Negative Normal Negative mg/dL LAB [id number](IN C) UA Bili Negative Normal Negative mg/dL LAB [id number](IN C) UA Blood Negative Normal Negative mg/dL LAB [id number]([facility] C) UA Nitrite Negative Normal Negative mg/dL LAB [id number]([facility] C) UA Urobilinogen Negative Normal Negative mg/dL LAB [id number]([facility] C) UA Leuk Est Negative Normal Negative [id number] Performed By: #### [id number] #### [facility] [address] [place] [address] LIPASE LEVEL Collected: 5 5:19 PM Status: F Source: [facility] TYPE CODE TESTS RESULT OUT OF RANGE REFERENCE UNITS LAB [id number]([facility]) Lipase Lvl 56 Normal 13-58 unit/ L Performed By: #### [id number] # ### [facility] [address] [place] [address] EGFR Collected: 5 5:19 PM Status: F Source: [facility] TYPE CODE TESTS RESULT OUT OF RANGE REFERENCE UNITS LAB [id number]([facility]) eGFR 87 Normal >=59 mL/min/1 .7 3 m2 Performed By: #### [id number] #### [facility] [address] [place] [address] HEP FUNC PANEL Collected: 5 5:19 PM Status: F Source: [facility] TYPE CODE TESTS RESULT OUT OF RANGE REFERENCE UNITS LAB [id number](LOINC) ALT 9 Normal 6-46 Int._Uni t /L LAB [id number](LOINC) AST 18 Normal 5-43 Int._Uni t /L LAB 04040582(INC) Albumin Lvl 4.3 Normal 3.3-5.0 gm/d L LAB 01907406(INC) Globulin 2.4 Normal 1.4-4.0 gm/dL LAB 08550211([facility]) A/G Ratio 1.8 Normal 1.1-2.2 LAB 05107045([facility]) Alk Phos 125 High 21-98 Int._Un it /L LAB [id number]([facility]) Bili Direct 0.0 Normal 0.0-0.4 mg/d L LAB [id number]([facility]) Bili Indirect 0.2 Normal 0.1-0.9 mg /dL LAB [id number]([facility]) Bili Total 0.2 Normal 0.0-1.1 mg/dL LAB [id number]([facility]) Total Protein 6.7 Normal 6.0-7.8 gm /dL Performed By: #### [id number] # ### [facility] [address] [place] [address] CBC W/ AUTO DIFF Collected: 5 5:19 PM Status: F Source: [facility] TYPE CODE TESTS RESULT OUT OF RANGE REFERENCE UNITS LAB [id number]([facility]) WBC 9.9 Normal 4.0-11.0 E9/L LAB [id number]([facility]) RBC 4.1 Low 4.3-5.9 E12/L LAB 65050496([facility]) HGB 14.0 Normal 12.0-16.0 gm/dL LAB [id number]([facility]) Hct 40.1 Normal 34.0-46.0 % LAB 78218090([facility]) RDW 13.4 Normal 10.9-14.2 % LAB 53769326([facility]) MCH 34.4 High 27.0-34.0 pg LAB 73350496([facility]) MCHC 34.8 Normal 31.4-36.0 gm/dL LAB 64847752(INC) MCV 98.7 Normal 80.0-100.0 fL LAB 88535020(INC) MPV 8.1 Normal 6.4-10.8 fL LAB 90631045(INC) Platelet 274.0 Normal 150.0-500.0 E9/ L LAB 15675887([facility]) Neutro Auto 59.8 Normal 36.0-75.0 % LAB 88893555([facility]) Lymph Auto 28.5 Normal 14.0-50.0 % LAB 13341772([facility]) Monroe Auto 8.3 Normal 4.0-14.0 % LAB 89071669([facility]) Eos Auto 1.8 Normal 0.0-8.0 % LAB [id number]([facility]) Basophil Auto 1.6 Normal 0.0-2.0 % LAB [id number]([facility]) Neutro Absolute 5.9 Normal 2.0-7.5 E9/L LAB 88002512([facility]) Lymph Absolute 2.8 Normal 1.0-4.0 E9/L LAB 07750564([facility]) Monroe Absolute 0.8 Normal 0.2-1.0 E9 /L LAB 42179997([facility]) Eos Absolute 0.2 Normal 0.0-0.5 E9/ L LAB 69529205([facility]) Basophil Absolute 0.2 Normal 0.0-0.2 E9/L Performed By: #### [id number] # ### [facility] [address] [place] [address] BMP Collected: 10/24/2024 5:19 PM Status: F Source: [facility] TYPE CODE TESTS RESULT OUT OF RANGE REFERENCE UNITS LAB [id number]([facility]) Glucose Lvl 96 Normal 55-199 mg/d L LAB [id number]([facility]) BUN 8 Normal 5-21 mg/dL LAB 7593880([facility]) Creatinine 0.8 Normal 0.5-1.3 mg/dL LAB 78027506([facility]) BUN/Creat Ratio 10 Normal 10-20 No Units LAB [id number]([facility]) Calcium Lvl 9.9 Normal 8.9-11.1 mg/ dL LAB 68256316([facility]) Sodium Lvl 137 Normal 135-145 mmol/ L LAB [id number]([facility]) Potassium Lvl 4.0 Normal 3.5-5.3 mm ol/L LAB 55716090([facility]) Chloride 105 Normal 101-111 mmol/L LAB 50244624([facility]) CO2 27 Normal 21-31 mmol/L LAB 78091914([facility]) AGAP 9 Normal 6-16 mEq/L Performed By: #### [id number] # ### [facility] [address] [place] [address] ED NOTE-PHYSICIAN Observed: 10/24/2024 4:30 PM Status: F Source: [facility] ED Note-Physician Basic Information Time Seen: Marco [...] blood thinner use. States that she does follow- up with the [facility] for GI follow-up. Review of Systems No [...] Zepeda In 3 days 10/27/2024 EDT [address], [address] [address] [phone] Business (1) Additional Instructions: Follow-up with your GI doctor. If you do not have 1 you may follow-up with Dr. Zepeda. Raji JENSEN In 3 days 10/27/2024 EDT [address] [place] [address]- Business (1) Additional Instructions: Follow-up with your primary care doctor. You do not have 1 you may follow-up with Dr. Jensen. Patient Education Chronic Pancreatitis Attestation Patient seen and evaluated by the physician marketing support assistant. Attending physician was present in the emergency department and supervised care. This visit was performed by both the physician and an APC. I performed all aspects of the MDM as documented. This report was transcribed using voice recognition software. Every effort was made to ensure accuracy, however, inadvertently computerized fiber heel piece shaper mistakes may be present. Appropriate healthcare PPE [...] Inpatient No active inpatient medications Home promethazine 25 mg Tab, 25 mg= 1 tab(s), Oral, TID Allergies haloperidol (Swelling, Hives) morphine (Hives, Swelling) penicillin (Swelling) traMADol (Swelling, Hives) Compazine (Hives) Toradol (Swelling) fentaNYL (Hives) ibuprofen (Hives, Swelling) Social History Alcohol - Denies Alcohol Use, 10/03/2024 Substance Abuse - Denies Substance Abuse, 10/03/2024 Tobacco - High Risk, 10/03/2024 10 or more cigarettes (1/2 pack or more)/day in last 30 days Tobacco Use:. Cigarettes, 10/03/2024 Lab Results WBC: 9.9 E9/L (10/24/24 17:19:00) RBC: 4.1 E12/L Low (10/24/24 17:19:00) HGB: 14 gm/dL (10/24/24 17:19:00) Hct: 40.1 % (10/24/24 17:19:00) MCV: 98.7 fL (10/24/24 17:19:00) MCH: 34.4 pg High (10/24/24 17:19:00) MCHC: 34.8 gm/dL (10/24/24 17:19:00) RDW: 13.4 % (10/24/24 17:19:00) Platelet: 274 E9/L (10/24/24 17:19:00) MPV: 8.1 fL (10/24/24 17:19:00) Neutro Auto: 59.8 % (10/24/24 17:19:00) Lymph Auto: 28.5 % (10/24/24 17:19:00) Monroe Auto: 8.3 % (10/24/24 17:19:00) Eos Auto: 1.8 % (10/24/24 17:19:00) Basophil Auto: 1.6 % (10/24/24 17:19:00) Neutro Absolute: 5.9 E9/L (10/24/24 17:19:00) Lymph Absolute: 2.8 E9/L (10/24/24 17:19:00) [place] Absolute: 0.8 E9/L (10/24/24 17:19:00) Eos Absolute: 0.2 E9/L (10/24/24 17:19:00) Basophil Absolute: 0.2 E9/L (10/24/24 17:19:00) Glucose Lvl: 96 mg/dL (10/24/24 17:19:00) BUN: 8 mg/dL (10/24/24 17:19:00) Creatinine: 0.8 mg/dL (10/24/24 17:19:00) eGFR: 87 mL/min/1.73 m2 (10/24/24 17:19:00) BUN/Creat Ratio: 10 (10/24/24 17:19:00) Sodium Lvl: 137 mmol/L (10/24/24 17:19:00) Potassium Lvl: 4 mmol/L (10/24/24 17:19:00) Chloride: 105 mmol/L (10/24/24 17:19:00) CO2: 27 mmol/L (10/24/24 17:19:00) AGAP: 9 mEq/L (10/24/24 17:19:00) Calcium Lvl: 9.9 mg/dL (10/24/24 17:19:00) Alk Phos: 125 Int._Unit/L High (10/24/24 17:19:00) ALT: 9 Int._Unit/L (10/24/24 17:19:00) AST: 18 Int._Unit/L (10/24/24 17:19:00) Total Protein: 6.7 gm/dL (10/24/24 17:19:00) Albumin Lvl: 4.3 gm/dL (10/24/24 17:19:00) Globulin: 2.4 gm/dL (10/24/24 17:19:00) A/G Ratio: 1.8 (10/24/24 17:19:00) Bili Total: 0.2 mg/dL (10/24/24 17:19:00) Bili Direct: 0 mg/dL (10/24/24 17:19:00) Bili Indirect: 0.2 mg/dL (10/24/24 17:19:00) Lipase Lvl: 56 unit/L (10/24/24 17:19:00) UA Spec Desc: Clean Catch (10/24/24 17:35:00) UA Color: Colorless Abnormal (10/24/24 17:35:00) UA Clarity: Clear (10/24/24 17:35:00) UA Spec Grav: 1.006 (10/24/24 17:35:00) UA pH: 5.5 (10/24/24 17:35:00) UA Protein: Negat (10/24/24 17:35:00) UA Glucose: Negat (10/24/24 17:35:00) UA Ketones: Negat (10/24/24 17:35:00) UA Bili: Negat (10/24/24 17:35:00) UA Blood: Negat (10/24/24 17:35:00) UA Nitrite: Negat (10/24/24 17:35:00) UA Urobilinogen: Negat (10/24/24 17:35:00) UA Leuk Est: Negat (10/24/24 17:35:00) Diagnostic Results No qualifying data available. Result Comment: Electronical ly Signed By: Marco A Aguilar PA-C\.br\Date and Time Signed: 10/24/24 18:47 EDT\.br\Electronically Co-Signed By: Darrel Ferrer DO\.br\Date and Time Co-Signed: 10/25/24 07:[address] ABDOMEN PELVIS W CON Observed: 2024 10:04 PM Status: COMPLETED Source: [facility] Main [place] [address] [place] [address] CT Scan Report Signed Patient: Chioma Arciniega MR#: [id number] : 1970 Acct:[id number] Age/Sex: 54 / F ADM Date: 10/19/24 Loc: ER Room: Type: [facility] ER Attending Dr: Copies to: Nicole [...] Mendieta M.D. 10/19/2024 10:12 PM Dictation Location: [facility] Transcribed By: [facility] 10/19/242211 Dictated By: Cruzito Mendieta DO 10/19/242203 Signed By: <Electronically signed by Cruzito Mendieta DO in OV> 10/19/242211 COMPLETE BLOOD COUNT AUTO DIFF Collected: 10/19/2024 8:42 PM Status: F Source: [facility] TYPE CODE TESTS RESULT OUT OF RANGE REFERENCE UNITS LAB WBC White Blood Count 11.2 Normal 3.8-11.6 [CFU]/mL LAB UNWBC Uncorrected WBC 11.2 Normal 3.8-11.6 10*3/uL LAB RBC Red Blood Count 4.37 Normal 3.60-5.00 10*6/u L LAB HGB Hemoglobin 14.4 Normal 11.8-15.4 g/dL LAB HCT Hematocrit 42.9 Normal 34.0-46.4 % LAB MCV Mean Corpuscular Volume 98.2 Normal 80-100 fL LAB MCH Mean Corpuscular Hemoglobin 33.0 Normal 24.7-34.3 pg LAB MCHC Mean Corpuscular HGB Conc 33.7 Normal 32.0-35.0 g/dL LAB RDW Red Cell Distribution Width 13.8 Normal 11.9-15.3 % LAB PLT Platelet Count 281 Normal 150-450 10*3/uL LAB MPV Mean Platelet Volume 7.5 Normal 6.3-10.7 fL LAB MDW Monocyte Distribution Width 17.90 Normal 0.00-20.00 % LAB NE% Neutrophils % (Auto) 59.8 . % LAB LY% Lymphocytes % (Auto) 29.1 . % LAB MO% Monocytes % (Auto) 8.6 . % LAB EO% Eosinophils % (Auto) 1.6 . % LAB BA% Basophils % (Auto) 0.9 . % LAB NRBC% NRBC% 0.0 Normal 0-0.5 /100{WBC } LAB NE# Neutrophils # (Auto) 6.7 Normal 1.8-7.7 10*3/uL LAB LY# Lymphocytes # (Auto) 3.3 Normal 1.00-4.8 10*3/uL LAB MO# Monocytes # (Auto) 1.0 High 0.0-0.8 10*3/uL LAB EO# Eosinophils # (Auto) 0.2 Normal 0.0-0.45 10*3/uL LAB BA# Basophils # (Auto) 0.1 Normal 0.0-0.2 10*3/uL Result Comment: PERFORMED BY : [place] [address] PATHOLOGIST [employer] WORKER TARA BENSON M.D. Performed By: #### CBC, LIPA SE, BMP, HEPATIC #### [facility] [address] HEPATIC PANEL Collected: 10/19/2024 8:42 PM Status: F Source: [facility] TYPE CODE TESTS RESULT OUT OF RANGE REFERENCE UNITS LAB TP Total Protein 7.3 Normal 6.4-8.9 g/dL LAB ALB Albumin Level 4.5 Normal 3.5-5.7 g/dL LAB GLOB Globulin 2.8 g/dL LAB AGRATIO Albumin/Globulin Ratio 1.6 LAB BILIT Bilirubin,Total 0.4 Normal 0.3-1.0 mg/dL LAB BILID Bilirubin,Direct 0.00 Low 0.03-0.18 mg/dL Result Comment: If the DBIL is less than 0.1, IBIL is not able to be calculated. LAB BILII Bilirubin,Indirect 0.4 mg/dL LAB AST Aspartate Amino Transferase 16 Normal 13-39 U/L LAB ALT Alanine Aminotransferase 9 Normal 7-52 U/L LAB ALP Alkaline Phosphatase 145 High 34-104 U/L Performed By: #### CBC, LIPA SE, BMP, HEPATIC #### [facility] [address] [place] [id number] [facility] BASIC METABOLIC PANEL Collected: 10/19/2024 8:42 PM Status: F Source: [facility] TYPE CODE TESTS RESULT OUT OF RANGE REFERENCE UNITS LAB GLU Glucose 84 Normal 70-100 mg/dL Result Comment: Random Gluco se Reference Range is dependent on time and content of last meal. Glucose of more than 200 mg/dL in a nonstressed, ambulatory subject supports the diagnosis of Diabetes Mellitus. ADA recommended reference range LAB BUN Blood Urea Nitrogen 11 Normal 7-25 mg/dL LAB CREATT Creatinine 0.83 Normal 0.60-1.20 mg/dL LAB GFReNR Estimated GFR >60.0 LAB NA Sodium 139 Normal 136-145 mmol/L LAB K Potassium 3.9 Normal 3.5-5.1 mmol/L LAB CL Chloride 106 Normal 98-107 mmol/L LAB CO2 Carbon Dioxide 25.0 Normal 21.0-31.0 mmol/L LAB GAP Anion Gap 11.9 Normal 6.0-15.0 LAB CA Calcium 9.8 Normal 8.6-10.3 mg/dL LAB CRCLPHA Creatinine Clr Calc Pharmacy 60.57 Performed By: #### CBC, LIPA SE, BMP, HEPATIC #### [facility] [address] [place] [id number] [facility] LIPASE Collected: 8:42 PM Status: F Source: [facility] TYPE CODE TESTS RESULT OUT OF RANGE REFERENCE UNITS LAB LIPASE Lipase 198.0 High 11.0-82.0 U/L Result Comment: PERFORMED BY : [place] [address] PATHOLOGIST [employer] WORKER TARA BENSON M.D. Performed By: #### CBC, LIPA SE, BMP, HEPATIC #### [place] [id number] [facility] URINALYSIS Collected: 10/19/2024 7:39 PM Status: F Source: [facility] Order Comment: Name Collecti on Type:: Voided TYPE CODE TESTS RESULT OUT OF RANGE REFERENCE UNITS LAB UCOL Color,Urine Colorless Yellow LAB UAPP Appearance,Uri ne Clear Clear LAB USG Specificy [place],Urine 1.007 Normal 1.001-1.030 LAB UPH pH,Urine 5.5 Normal 5.0-9.0 LAB ULE Leukocyte Esterase,Urine Negative Negative LAB UNIT Nitrite,Urine Negative Negative LAB UPRO Protein,Urine Negative Negative mg/dL LAB UGL Glucose,Urine (UA) Normal Normal mg/dL LAB UKET Ketones,Urine Negative Negative LAB UURO Urobilinogen,U rine Normal Normal mg/dL LAB UBIL Bilirubin,Urin e Negative Negative LAB UBLD Occult Blood,Urine Negative Negative Result Comment: PERFORMED BY : [place] [address] PATHOLOGIST [employer] WORKER TARA BENSON M.D. Performed By: #### UA #### [place] [id number] [facility] ECG 12 LEAD ECG Observed: 10/19/2024 4:47 PM Status: COMPLETED Source: [facility] Main [place] [address] [place] [address] Electrocardiograph Report Signed Patient: Chioma Arciniega MR#: [id number] : 1970 Acct:[id number] Age/Sex: 54 / F ADM Date: 10/19/24 Loc: ER Room: Type: [facility] ER Attending Dr: Ordering Provider: [...] sinus rhythm Confirmed by Chi GARCIA DO ([id number]) on 10/20/2024 12:41:59 AM Referred By: Electronically Signed By: Chi GARCIA DO Transcribed By: MUS Signed By Chi Garcia DO 0 10/20/24 0042 CBC WITH AUTO DIFFERENTIAL Collected: 0 10/11/2024 5:52 AM Status: COMPLETED Source: [facility] TYPE CODE TESTS RESULT OUT OF RANGE REFERENCE UNITS LAB WBC WBC 8.8 4-11 x10E9/L LAB RBC RBC COUNT 4.19 3.8-5.2 X10E12/L LAB HGB HEMOGLOBIN 13.9 11.7-15.5 g/dL LAB HCT HEMATOCRIT 40.5 35-47 % LAB MCV MCV 97 80-100 fL LAB MCH MCH 33.2 27-34 pg LAB MCHC MCHC 34.3 32-36 g/dL LAB RDW RDW 13.6 11.5-15 % LAB PLTC PLATELET COUNT 244 150-450 X10E9/L LAB MPV MPV 7.7 7-12 fL LAB NEUT NEUTROPHILS RELATIVE PERCENT BY AUTOMATED COUNT 63.7 % LAB LYMP LYMPHOCYTES RELATIVE PERCENT BY AUTOMATED COUNT 23.7 % LAB MONO MONOCYTES RELATIVE PERCENT BY AUTOMATED COUNT 8.9 % LAB EOS EOSINOPHILS RELATIVE PERCENT BY AUTOMATED COUNT 2.8 % LAB BASO BASOPHILS RELATIVE PERCENT BY AUTOMATED COUNT 0.9 % LAB ANEUT NEUTROPHILS ABSOLUTE COUNT BY AUTOMATED COUNT 5.6 1.5-6.6 10*3/uL LAB ALYMP LYMPHOCYTES ABSOLUTE COUNT (10*3/UL) BY AUTOMATED COUNT 2.1 1.0-3.5 10*3/uL LAB AMONO MONOCYTES ABSOLUTE COUNT (10*3/UL) BY AUTOMATED COUNT 0.8 0.0-0.9 10*3/uL LAB AEOS EOSINOPHILS ABSOLUTE COUNT (10*3/UL) BY AUTOMATED COUNT 0.2 0.0-0.4 10*3/uL LAB ABASO BASOPHILS ABSOLUTE COUNT (10*3/UL) BY AUTOMATED COUNT 0.1 0.0-0.2 10*3/uL LAB DTYPE CELLAVISION DIFFERENTIAL TYPE AUTOMATED DIFFERENTIAL Performed By: #### CBCA #### [place] [address] VIR PROTIME AND INR Collected: 10/11/2024 5:52 AM Status: COMPLETED Source: [facility] TYPE CODE TESTS RESULT OUT OF RANGE REFERENCE UNITS LAB PROX PROTIME 10.3 9.8-13.2 sec LAB INR INR 0.9 0.9-1.2 NA Performed By: #### PINR #### [address] [address] VIR APTT Collected: 10/11/2024 5:52 AM S tatus: COMPLETED Source: [facility] TYPE CODE TESTS RESULT OUT OF RANGE REFERENCE UNITS LAB PTT APTT 28 26-37 sec Performed By: #### PTT #### [address] [address] VIR MAGNESIUM Collected: 10/11/2024 5:52 AM S tatus: COMPLETED Source: [facility] TYPE CODE TESTS RESULT OUT OF RANGE REFERENCE UNITS LAB MG MAGNESIUM 2.3 1.8-2.6 mg/dL Performed By: #### MG #### [address] [address] VIR BASIC METABOLIC PANEL Collected: 10/11/2024 5:5 2 AM Status: COMPLETED Source: [facility] TYPE CODE TESTS RESULT OUT OF RANGE REFERENCE UNITS LAB NA SODIUM 136 134-146 mmol/L LAB K POTASSIUM 3.9 3.5-5.0 mmol/L LAB CL CHLORIDE 106 98-109 mmol/L LAB CO2 CARBON DIOXIDE 25 22-32 mmol/L LAB AGAP ANION GAP 5 5-15 mmol/L LAB BUN BLOOD UREA NITROGEN 10 5-23 mg/dL LAB CRET CREATININE 0.80 0.40-1.00 mg/dL Result Comment: METHOD TRACE ABLE TO IDMS STANDARD LAB GLU GLUCOSE 98 65-99 mg/dL LAB CA CALCIUM 9.3 8.5-10.5 mg/dL LAB EGFR EGFR (CKD-EPI) NON-RACE DEPENDENT 87 >=60 ml/min/1. 73sq.m Result Comment: eGFR not rep orted due to non-numeric value for Creatinine. Reported eGFR is based on the CKD-EPI 2020 equation that does not use a race coefficient. Performed By: #### BMP #### [address] [address] VIR LIVER PANEL Collected: 10/11/2024 5:52 AM S tatus: COMPLETED Source: [facility] TYPE CODE TESTS RESULT OUT OF RANGE REFERENCE UNITS LAB TP TOTAL PROTEIN 6.8 6.0-8.0 g/dL LAB ALB ALBUMIN 3.9 3.2-5.3 g/dL LAB TBIL BILIRUBIN,TOTAL 0.2 Low 0.3-1.2 mg/dL LAB ALK ALKALINE PHOSPHATASE 111 39-130 U/L LAB AST AST 22 <=41 U/L LAB ALT ALT 12 <=31 U/L LAB DBIL BILIRUBIN,DIRECT 0.1 <=0.4 mg/dL Performed By: #### LIVR #### [address] [address] VIR ETHANOL Collected: 10/11/2024 5:52 AM S tatus: COMPLETED Source: [facility] TYPE CODE TESTS RESULT OUT OF RANGE REFERENCE UNITS LAB ALCO ETHANOL <^0.010 <=0.080 g/dL Result Comment: This report is intended for use in clinical monitoring or management of patients. Performed By: #### ALCO #### [facility] ([facility]) [address] [place] [address]. [place] [address] VIR LIPASE Collected: 10/11/2024 5:52 AM S tatus: COMPLETED Source: [facility] TYPE CODE TESTS RESULT OUT OF RANGE REFERENCE UNITS LAB LIPA LIPASE 49 High 17-40 U/L Performed By: #### LIPA #### [facility] ([address] [address] VIR ED PATIENT EDUCATION NOTE Observed: 05/2024 5:59 PM Status: F Source: [facility] ED Patient Education Note Endocrinology Chronic Pancreatitis [...] sudden (acute). When you have repeated or long- lasting episodes of acute pancreatitis, damage to the [...] urine pale yellow. General instructions ??? Take jvxc-gqa-jthpibd and prescription medicines only as told by your health care provider. These include vitamin supplements. ??? Ask your health care provider if the medicine prescribed to you: ? Requires you to avoid driving or using machinery. ? Can cause constipation. You may need to take these actions to prevent or treat constipation: ? Take yrue-vqy-egzkgyz or prescription medicines. ? Eat foods that are high in fiber, such as beans, whole grains, and fresh fruits and vegetables. ? Limit foods that are high in fat and processed sugars, such as fried or sweet foods. ??? Do not use any products that contain nicotine or tobacco. These products include cigarettes, chewing tobacco, and vaping devices, such as e-cigarettes. If you need help quitting, ask your health care provider. ??? If directed, check your blood sugar at home as told. ??? Keep all follow-up visits. This is important. Contact a health care provider if: ??? You have pain that does not get better with medicine. ??? You have a fever. ??? You have sudden weight loss. Get help right away if: ??? Your pain suddenly gets worse. ??? You have sudden swelling in your abdomen. ??? You start to vomit often. ??? You have diarrhea that does not go away. ??? You vomit blood or have blood in your stool. ??? You become confused or you have trouble thinking clearly. These symptoms may be an emergency. Get help right away. Call 911. ??? Do not wait to see if the symptoms will go away. ??? Do not drive yourself to the hospital. Summary ??? Chronic pancreatitis is permanent inflammation and scarring of the pancreas that leads to pancreatic dysfunction. Damage to the pancreas may affect digestion, may cause pain in the upper abdomen and back, and may cause diabetes. Inflammation can also irritate other organs in the abdomen near the pancreas. ??? Common causes of this condition are heavy alcohol use, gallstones, increased (elevated) levels of triglycerides, and certain medicines. ??? To manage this condition: control pain, replace enzymes, and do not drink alcohol. This information is not intended to replace advice given to you by your health care provider. Make sure you discuss any questions you have with your health care provider. Document Revised: 01/14/2022 Document Reviewed: 01/14/2022 Elsevier Patient Education ? 2023 [employer]. ED PATIENT SUMMARY Observed: 10/09/2024 5:59 PM Status: F Source: [facility] ED Patient Summary [place] [id number] Patient Discharge Instructions Person Information Name: CHIOMA ARCINIEGA Age: 54 Years Arrival Date: 10/09/2024 13:21:49 Discharge Diagnosis: 1:Abdominal pain; Chronic pancreatitis Primary Care Physician: NONE, XXXX Provider Information Primary Provider: Ish Stokes MD [employer] Adviser:Marco A Aguilar PA-C The exam and treatment you received in the Emergency Department were for an urgent problem and are not intended as complete care. It is important that you follow up with a doctor, nurse practitioner, or physician???s marketing support assistant for ongoing care. If your symptoms become worse or you do not improve as expected and you are unable to reach your usual health care provider, you should return to the Emergency Department. We are available 24 hours a day. CHIOMA ARCINIEGA has been given the following list of patient education materials, prescriptions and follow-up instructions: Follow-up Instructions: With: Address: When: [facility] [phone] In 3 days 10/12/2024 In the event that this physician does not participate in your insurance network, please consult with your insurance company to find a nearby participating provider. Patient Education Materials: Chronic Pancreatitis A MESSAGE TO ALL PATIENTS REGARDING OPIOIDS PRESCRIPTION OPIOIDS: WHAT YOU NEED TO KNOW Prescription opioids can be used to help relieve cukktibh-td-wwwjao pain and are often prescribed following a [...] guidance from the Food and Drug Administration (www.fda.gov/Drugs/ResourcesForYou). ??? Visit www.cdc.gov/drugoverdose to learn about the risks of opioids abuse and overdose. ??? If you believe you may be struggling with addiction, tell your health urgent care physician assistant and ask for guidance or call [facility]???S [employer] Helpline at [phone]-CQZM. v Source: US Department of Health and Human Services/Center for Disease Control & Prevention [facility] Medications Given: Medication Dose Route Sodium Chloride 0.9% intravenous solution 1000.00 mL IV Left Hand HYDROmorphone 0.50 mg IV Push Left Hand ondansetron 4.00 mg IV Push Left Hand Sodium Chloride 0.9% intravenous solution 1000.00 mL IV Left Antecubital [place] HYDROmorphone 0.50 mg IV Push Left Antecubital Mya Medication Information: Medications to Continue with No Changes Other Medications promethazine (promethazine 25 mg Tab) 1 Tablets By Mouth 3 times a day. Refills: 0. Comment: Patient Portal You may access all of your results and other medical record information on our secure patient portal. If you are not signed up for this yet, please contact [employer] at [phone] to get signed up today. FILOMENA Award Nomination The FILOMENA (Diseases Attacking the Immune SYstem) Award is an international recognition program that honors and celebrates the skillful, compassionate care nurses provide every day. Anyone who experiences or observes amazing care being provided by a nurse is encouraged to submit a nomination. To nominate your nurse, use your smart phone to scan the QR code below. Language Information Language assistance services are available as needed. You may receive a survey from [employer] asking you to rate your care experience. Your feedback is important and will help us understand what we do well and how we can improve the quality of care we provide to you, your loved ones and our community. It???s an honor to serve you. Thank you for choosing [facility] Patient Education Materials: Chronic Pancreatitis Chronic pancreatitis is permanent inflammation [...] sudden (acute). When you have repeated or long- lasting episodes of acute pancreatitis, damage to the [...] urine pale yellow. General instructions ??? Take kzqx-pcb-fdvdokk and prescription medicines only as told by your health care provider. These include vitamin supplements. ??? Ask your health care provider if the medicine prescribed to you: ? Requires you to avoid driving or using machinery. ? Can cause constipation. You may need to take these actions to prevent or treat constipation: ? Take isbl-gfo-tajgzna or prescription medicines. ? Eat foods that are high in fiber, such as beans, whole grains, and fresh fruits and vegetables. ? Limit foods that are high in fat and processed sugars, such as fried or sweet foods. ??? Do not use any products that contain nicotine or tobacco. These products include cigarettes, chewing tobacco, and vaping devices, such as e-cigarettes. If you need help quitting, ask your health care provider. ??? If directed, check your blood sugar at home as told. ??? Keep all follow-up visits. This is important. Contact a health care provider if: ??? You have pain that does not get better with medicine. ??? You have a fever. ??? You have sudden weight loss. Get help right away if: ??? Your pain suddenly gets worse. ??? You have sudden swelling in your abdomen. ??? You start to vomit often. ??? You have diarrhea that does not go away. ??? You vomit blood or have blood in your stool. ??? You become confused or you have trouble thinking clearly. These symptoms may be an emergency. Get help right away. Call 911. ??? Do not wait to see if the symptoms will go away. ??? Do not drive yourself to the hospital. Summary ??? Chronic pancreatitis is permanent inflammation and scarring of the pancreas that leads to pancreatic dysfunction. Damage to the pancreas may affect digestion, may cause pain in the upper abdomen and back, and may cause diabetes. Inflammation can also irritate other organs in the abdomen near the pancreas. ??? Common causes of this condition are heavy alcohol use, gallstones, increased (elevated) levels of triglycerides, and certain medicines. ??? To manage this condition: control pain, replace enzymes, and do not drink alcohol. This information is not intended to replace advice given to you by your health care provider. Make sure you discuss any questions you have with your health care provider. Document Revised: 01/14/2022 Document Reviewed: 01/14/2022 [employer] Patient Education ? 2023 [employer]. JANUSZ Christopher MICHELLE , have received the following patient education materials/instructions and have verbalized understanding: Patient Education Materials: Chronic Pancreatitis Follow-up Instructions: With: Address: When: [facility] [phone] In 3 days 10/12/2024 Patient Signature Date Clinician/Nurse Signature Date 10/09/2024 17:59:15 ED CLINICAL SUMMARY Observed: 10/09/2024 5:59 PM Status: F Source: [facility] ED Clinical Summary [place] [address] ED Clinical Summary Person Information Name: CHIOMA ARCINIEGA/Shelbi Age: 54 Years : 1970 Sex: Female Language: Armenian PCP: NONE, XXXX Marital Status: Visit Id: [...] 10/09/2024 17:59:13 10/09/2024 17:59:13 10/09/2024 17:59:13 ADDRESS: [address] [place] [address] [id number] PHYS DOC NOTES: MEDICAL INFORMATION: Prescriptions Given: Medications to Continue with No Changes Other Medications promethazine (promethazine 25 mg Tab) 1 Tablets By Mouth 3 times a day. Refills: 0. PATIENT EDUCATION INFORMATION: Instructions: Chronic Pancreatitis Follow up: With: Address: When: [facility] [phone] In 3 days 10/12/2024 DIAGNOSIS: 1:Abdominal pain; Chronic pancreatitis UA WITH CULT RFLX Collected: 10/09/2024 4:53 PM Stat us: F Source: [facility] TYPE CODE TESTS RESULT OUT OF RANGE REFERENCE UNITS LAB [id number](LOINC ) UA Spec Desc Clean Catch Normal LAB [id number](LOINC ) UA Color Colorless Abnormal Yellow Result Comment: Microscopic readings are only performed on those samples that meet specific criteria set forth by [facility]. LAB [id number](LOINC ) UA Clarity Clear Normal Clear LAB [id number](LOINC ) UA Spec Grav >1.050 Unknown 1.005-1.030 LAB [id number](LOINC ) UA pH 5.5 Unknown 5.0-9.0 LAB [id number](LOINC ) UA Protein Negative Normal Negative mg/dL LAB [id number](LOINC ) UA Glucose Negative Normal Negative mg/dL LAB [id number](LOINC ) UA Ketones Negative Normal Negative mg/dL LAB [id number](LOINC ) UA Bili Negative Normal Negative mg/dL LAB [id number](LOINC ) UA Blood Negative Normal Negative LAB [id number](LOINC ) UA Nitrite Negative Normal Negative mg/dL LAB [id number](LOINC ) UA Urobilinogen Negative Normal Negative mg/dL LAB [id number](LOINC ) UA Leuk Est Negative Normal Negative Performed By: #### [id number] #### [facility] [address] [place] [address] CT ABDOMEN/PELVIS W/ CONTRAST Observed: 10/09/2024 2:46 PM Status: F Source: [facility] Exam Date/Time: 10/09/2024 15:14 EDT Reason for [...] or dissection. Mild predominantly calcified atherosclerotic plaquing. Mesentery/peritoneum/retroperitoneum: No free fluid, organized fluid collection, inflammatory [...] (Electronic Signature): 10/10/2024 10:13 am Signed by: Brandon Zepeda MD Transcribed by: ELMER Technologist: ANTONI LIPASE LEVEL Collected: 5 2:11 PM Status: F Source: [facility] TYPE CODE TESTS RESULT OUT OF RANGE REFERENCE UNITS LAB [id number](LOINC) Lipase Lvl 98 High 13-58 unit/ L Performed By: #### [id number] # ### [facility] [address] [place] [address] EGFR Collected: 5 2:11 PM Status: F Source: [facility] TYPE CODE TESTS RESULT OUT OF RANGE REFERENCE UNITS LAB [id number](LOINC) eGFR 87 Normal >=59 mL/min/1 .7 3 m2 Performed By: #### [id number] #### [facility] [address] [place] [address] CBC W/ AUTO DIFF Collected: 5 2:11 PM Status: F Source: [facility] TYPE CODE TESTS RESULT OUT OF RANGE REFERENCE UNITS LAB [id number](LOINC) WBC 7.7 Normal 4.0-11.0 E9/L LAB [id number](LOINC) RBC 4.6 Normal 4.3-5.9 E12/L LAB [id number](LOINC) HGB 15.3 Normal 12.0-16.0 gm/dL LAB [id number](LOINC) Hct 44.7 Normal 34.0-46.0 % LAB [id number](LOINC) RDW 13.7 Normal 10.9-14.2 % LAB [id number](LOINC) MCH 33.3 Normal 27.0-34.0 pg LAB [id number](LOINC) MCHC 34.3 Normal 31.4-36.0 gm/dL LAB [id number](LOINC) MCV 97.0 Normal 80.0-100.0 fL LAB [id number](LOINC) MPV 7.7 Normal 6.4-10.8 fL LAB [id number](LOINC) Platelet 255.0 Normal 150.0-500.0 E9/ L LAB [id number](LOINC) Neutro Auto 55.6 Normal 36.0-75.0 % LAB [id number](LOINC) Lymph Auto 31.5 Normal 14.0-50.0 % LAB [id number](LOINC) [place] Auto 9.2 Normal 4.0-14.0 % LAB [id number](LOINC) Eos Auto 2.8 Normal 0.0-8.0 % LAB [id number](LOINC) Basophil Auto 0.9 Normal 0.0-2.0 % LAB [id number](LOINC) Neutro Absolute 4.3 Normal 2.0-7.5 E9/L LAB [id number](LOINC) Lymph Absolute 2.4 Normal 1.0-4.0 E9/L LAB [id number](LOINC) [place] Absolute 0.7 Normal 0.2-1.0 E9 /L LAB [id number](LOINC) Eos Absolute 0.2 Normal 0.0-0.5 E9/ L LAB [id number](LOINC) Basophil Absolute 0.1 Normal 0.0-0.2 E9/L Performed By: #### [id number] # ### [facility] [address] [place] [address] HEP FUNC PANEL Collected: 2:11 PM Status: F Source: [facility] TYPE CODE TESTS RESULT OUT OF RANGE REFERENCE UNITS LAB [id number](INC) ALT 9 Normal 6-46 Int._Uni t /L LAB [id number](LOINC) AST 18 Normal 5-43 Int._Uni t /L LAB [id number](LOINC) Albumin Lvl 4.5 Normal 3.3-5.0 gm/d L LAB [id number](LOINC) Globulin 2.8 Normal 1.4-4.0 gm/dL LAB [id number](LOINC) A/G Ratio 1.6 Normal 1.1-2.2 LAB 61675690(INC) Alk Phos 114 High 21-98 Int._Un it /L LAB [id number]([facility]) Bili Direct 0.0 Normal 0.0-0.4 mg/d L LAB [id number]([facility]) Bili Indirect 0.3 Normal 0.1-0.9 mg /dL LAB [id number]([facility]) Bili Total 0.3 Normal 0.0-1.1 mg/dL LAB [id number]([facility]) Total Protein 7.3 Normal 6.0-7.8 gm /dL Performed By: #### [id number] # ### [facility] [address] [place] [address] BMP Collected: 10/09/2024 2:11 PM Status: F Source: [facility] TYPE CODE TESTS RESULT OUT OF RANGE REFERENCE UNITS LAB [id number](LOINC) Glucose Lvl 87 Normal 55-199 mg/d L LAB [id number](LOINC) BUN 9 Normal 5-21 mg/dL LAB 1949394(LOINC) Creatinine 0.8 Normal 0.5-1.3 mg/dL LAB [id number](LOINC) BUN/Creat Ratio 11 Normal 10-20 No Units LAB [id number](LOINC) Calcium Lvl 10.1 Normal 8.9-11.1 mg/ dL LAB 16692512(LOINC) Sodium Lvl 140 Normal 135-145 mmol/ L LAB 89568081(LOINC) Potassium Lvl 4.2 Normal 3.5-5.3 mm ol/L LAB [id number](LOINC) Chloride 107 Normal 101-111 mmol/L LAB [id number](LOINC) CO2 25 Normal 21-31 mmol/L LAB [id number](LOINC) AGAP 12 Normal 6-16 mEq/L Performed By: #### [id number] # ### [facility] [address] [place] [address] ED NOTE-PHYSICIAN Observed: 10/09/2024 1:21 PM Status: F Source: [facility] ED Note-Physician Basic Information Time Seen: Marco [...] Patient seen and evaluated by the physician marketing support assistant. Attending physician was present in the emergency department and supervised care. This visit was performed by both the physician and an APC. I performed all aspects of the MDM as documented. This report was transcribed using voice recognition software. Every effort was made to ensure accuracy, however, inadvertently computerized fiber heel piece shaper mistakes may be present. Appropriate healthcare PPE [...] Inpatient No active inpatient medications Home promethazine 25 mg Tab, 25 mg= 1 tab(s), Oral, TID Allergies haloperidol (Swelling, Hives) morphine (Hives, Swelling) penicillin (Swelling) traMADol (Swelling, Hives) Compazine (Hives) Toradol (Swelling) fentaNYL (Hives) ibuprofen (Hives, Swelling) Social History Alcohol - Denies Alcohol Use, 10/03/2024 Substance Abuse - Denies Substance Abuse, 10/03/2024 Tobacco - High Risk, 10/03/2024 10 or more cigarettes (1/2 pack or more)/day in last 30 days Tobacco Use:. Cigarettes, 10/03/2024 Lab Results WBC: 7.7 E9/L (10/09/24 14:11:00) RBC: 4.6 E12/L (10/09/24 14:11:00) HGB: 15.3 gm/dL (10/09/24 14:11:00) Hct: 44.7 % (10/09/24 14:11:00) MCV: 97 fL (10/09/24 14:11:00) MCH: 33.3 pg (10/09/24 14:11:00) MCHC: 34.3 gm/dL (10/09/24 14:11:00) RDW: 13.7 % (10/09/24 14:11:00) Platelet: 255 E9/L (10/09/24 14:11:00) MPV: 7.7 fL (10/09/24 14:11:00) Neutro Auto: 55.6 % (10/09/24 14:11:00) Lymph Auto: 31.5 % (10/09/24 14:11:00) [place] Auto: 9.2 % (10/09/24 14:11:00) Eos Auto: 2.8 % (10/09/24 14:11:00) Basophil Auto: 0.9 % (10/09/24 14:11:00) Neutro Absolute: 4.3 E9/L (10/09/24 14:11:00) Lymph Absolute: 2.4 E9/L (10/09/24 14:11:00) [place] Absolute: 0.7 E9/L (10/09/24 14:11:00) Eos Absolute: 0.2 E9/L (10/09/24 14:11:00) Basophil Absolute: 0.1 E9/L (10/09/24 14:11:00) Glucose Lvl: 87 mg/dL (10/09/24 14:11:00) BUN: 9 mg/dL (10/09/24 14:11:00) Creatinine: 0.8 mg/dL (10/09/24 14:11:00) eGFR: 87 mL/min/1.73 m2 (10/09/24 14:11:00) BUN/Creat Ratio: 11 (10/09/24 14:11:00) Sodium Lvl: 140 mmol/L (10/09/24 14:11:00) Potassium Lvl: 4.2 mmol/L (10/09/24 14:11:00) Chloride: 107 mmol/L (10/09/24 14:11:00) CO2: 25 mmol/L (10/09/24 14:11:00) AGAP: 12 mEq/L (10/09/24 14:11:00) Calcium Lvl: 10.1 mg/dL (10/09/24 14:11:00) Alk Phos: 114 Int._Unit/L High (10/09/24 14:11:00) ALT: 9 Int._Unit/L (10/09/24 14:11:00) AST: 18 Int._Unit/L (10/09/24 14:11:00) Total Protein: 7.3 gm/dL (10/09/24 14:11:00) Albumin Lvl: 4.5 gm/dL (10/09/24 14:11:00) Globulin: 2.8 gm/dL (10/09/24 14:11:00) A/G Ratio: 1.6 (10/09/24 14:11:00) Bili Total: 0.3 mg/dL (10/09/24 14:11:00) Bili Direct: 0 mg/dL (10/09/24 14:11:00) Bili Indirect: 0.3 mg/dL (10/09/24 14:11:00) Lipase Lvl: 98 unit/L High (10/09/24 14:11:00) Diagnostic Results No qualifying data available. Result Comment: Electronical ly Signed By: Marco A Aguilar PA-C\.br\Date and Time Signed: 10/09/24 16:16 EDT\.br\Electronically Co-Signed By: Ish Stokes MD\.br\Date and Time Co-Signed: 10/15/24 08:10 EDT ED PATIENT SUMMARY Observed: 10/03/2024 6:49 PM Status: F Source: [facility] ED Patient Summary [place] [address] Patient Discharge Instructions Person Information Name: CHIOMA ARCINIEGA Age: 54 Years Arrival Date: 10/03/2024 17:23:23 Discharge Diagnosis: Chronic pancreatitis Primary Care Physician: NONE, XXXX Provider Information Primary Provider: Darrel Ferrer DO [employer] Adviser:Levar Jara PA-C The exam and treatment you received in the Emergency Department were for an urgent problem and are not intended as complete care. It is important that you follow up with a doctor, nurse practitioner, or physician???s marketing support assistant for ongoing care. If your symptoms become worse or you do not improve as expected and you are unable to reach your usual health care provider, you should return to the Emergency Department. We are available 24 hours a day. CHIOMA ARCINIEGA has been given the following list of patient education materials, prescriptions and follow-up instructions: Follow-up Instructions: With: Address: When: XXXX NONE , [place] [...] opioids can be used to help relieve dehhmdpt-dp-hfmyap pain and are often prescribed following a [...] guidance from the Food and Drug Administration (www.fda.gov/Drugs/ResourcesForYou). ??? Visit www.cdc.gov/drugoverdose to learn about the risks of opioids abuse and overdose. ??? If you believe you may be struggling with addiction, tell your health urgent care physician assistant and ask for guidance or call [facility]???S National Helpline at 9-505-511-MHUK. v Source: US Department of Health and Human Services/Center for Disease Control & Prevention [facility] Medications Given: Medication Dose Route Sodium Chloride 0.9% intravenous solution 1000.00 mL IV Left Wrist HYDROmorphone 1.00 mg IV Push Left Hand pantoprazole 40.00 mg IV Push Left Hand Medication Information: New Medications Printed Prescriptions promethazine (promethazine 25 mg Tab) 1 Tablets By Mouth 3 times a day. Refills: 0. Comment: Patient Portal You may access all of your results and other medical record information on our secure patient portal. If you are not signed up for this yet, please contact [employer] Information Management at [phone] to get signed up today. FILOMENA Award Nomination The FILOMENA (Diseases Attacking the Immune SYstem) Award is an international recognition program that honors and celebrates the skillful, compassionate care nurses provide every day. Anyone who experiences or observes amazing care being provided by a nurse is encouraged to submit a nomination. To nominate your nurse, use your smart phone to scan the QR code below. Language Information Language assistance services are available as needed. You may receive a survey from [employer] asking you to rate your care experience. Your feedback is important and will help us understand what we do well and how we can improve the quality of care we provide to you, your loved ones and our community. It???s an honor to serve you. Thank you for choosing [facility] Patient Education Materials: Chronic Pancreatitis Chronic pancreatitis is permanent inflammation [...] sudden (acute). When you have repeated or long- lasting episodes of acute pancreatitis, damage to the [...] urine pale yellow. General instructions ??? Take jixv-zcj-tpowgth and prescription medicines only as told by your health care provider. These include vitamin supplements. ??? Ask your health care provider if the medicine prescribed to you: ? Requires you to avoid driving or using machinery. ? Can cause constipation. You may need to take these actions to prevent or treat constipation: ? Take pqbe-sow-utjitum or prescription medicines. ? Eat foods that are high in fiber, such as beans, whole grains, and fresh fruits and vegetables. ? Limit foods that are high in fat and processed sugars, such as fried or sweet foods. ??? Do not use any products that contain nicotine or tobacco. These products include cigarettes, chewing tobacco, and vaping devices, such as e-cigarettes. If you need help quitting, ask your health care provider. ??? If directed, check your blood sugar at home as told. ??? Keep all follow-up visits. This is important. Contact a health care provider if: ??? You have pain that does not get better with medicine. ??? You have a fever. ??? You have sudden weight loss. Get help right away if: ??? Your pain suddenly gets worse. ??? You have sudden swelling in your abdomen. ??? You start to vomit often. ??? You have diarrhea that does not go away. ??? You vomit blood or have blood in your stool. ??? You become confused or you have trouble thinking clearly. These symptoms may be an emergency. Get help right away. Call 911. ??? Do not wait to see if the symptoms will go away. ??? Do not drive yourself to the hospital. Summary ??? Chronic pancreatitis is permanent inflammation and scarring of the pancreas that leads to pancreatic dysfunction. Damage to the pancreas may affect digestion, may cause pain in the upper abdomen and back, and may cause diabetes. Inflammation can also irritate other organs in the abdomen near the pancreas. ??? Common causes of this condition are heavy alcohol use, gallstones, increased (elevated) levels of triglycerides, and certain medicines. ??? To manage this condition: control pain, replace enzymes, and do not drink alcohol. This information is not intended to replace advice given to you by your health care provider. Make sure you discuss any questions you have with your health care provider. Document Revised: 01/14/2022 Document Reviewed: 01/14/2022 [employer] Patient Education ? 2023 [employer]. JANUSZ Christopher MICHELLE , have received the following patient education materials/instructions and have verbalized understanding: Patient Education Materials: Chronic Pancreatitis Follow-up Instructions: With: Address: When: XXXX NONE , [place] In 3 days 10/06/2024 Comments: follow up with your GI physician Patient Signature Date Clinician/Nurse Signature Date 10/03/2024 18:49:24 ED PATIENT EDUCATION NOTE Observed: 09/07 6:49 PM Status: F Source: [facility] ED Patient Education Note Endocrinology Chronic Pancreatitis [...] sudden (acute). When you have repeated or long- lasting episodes of acute pancreatitis, damage to the [...] urine pale yellow. General instructions ??? Take zbjl-ssv-glqgtxk and prescription medicines only as told by your health care provider. These include vitamin supplements. ??? Ask your health care provider if the medicine prescribed to you: ? Requires you to avoid driving or using machinery. ? Can cause constipation. You may need to take these actions to prevent or treat constipation: ? Take cjzi-hca-byiknud or prescription medicines. ? Eat foods that are high in fiber, such as beans, whole grains, and fresh fruits and vegetables. ? Limit foods that are high in fat and processed sugars, such as fried or sweet foods. ??? Do not use any products that contain nicotine or tobacco. These products include cigarettes, chewing tobacco, and vaping devices, such as e-cigarettes. If you need help quitting, ask your health care provider. ??? If directed, check your blood sugar at home as told. ??? Keep all follow-up visits. This is important. Contact a health care provider if: ??? You have pain that does not get better with medicine. ??? You have a fever. ??? You have sudden weight loss. Get help right away if: ??? Your pain suddenly gets worse. ??? You have sudden swelling in your abdomen. ??? You start to vomit often. ??? You have diarrhea that does not go away. ??? You vomit blood or have blood in your stool. ??? You become confused or you have trouble thinking clearly. These symptoms may be an emergency. Get help right away. Call 911. ??? Do not wait to see if the symptoms will go away. ??? Do not drive yourself to the hospital. Summary ??? Chronic pancreatitis is permanent inflammation and scarring of the pancreas that leads to pancreatic dysfunction. Damage to the pancreas may affect digestion, may cause pain in the upper abdomen and back, and may cause diabetes. Inflammation can also irritate other organs in the abdomen near the pancreas. ??? Common causes of this condition are heavy alcohol use, gallstones, increased (elevated) levels of triglycerides, and certain medicines. ??? To manage this condition: control pain, replace enzymes, and do not drink alcohol. This information is not intended to replace advice given to you by your health care provider. Make sure you discuss any questions you have with your health care provider. Document Revised: 01/14/2022 Document Reviewed: 01/14/2022 [employer] Patient Education ? 2023 [employer]. ED CLINICAL SUMMARY Observed: 10/03/2024 6:49 PM Status: F Source: [facility] ED Clinical Summary [address] [address] ED Clinical Summary Person Information Name: CHIOMA ARCINIEGA[place] Age: 54 Years : 1970 Sex: Female Language: Armenian PCP: NONE, XXXX Marital Status: Visit Id: [...] 10/03/2024 18:49:22 10/03/2024 18:49:22 10/03/2024 18:49:22 ADDRESS: [address] [place] [id number] [facility] DOC NOTES: MEDICAL INFORMATION: Prescriptions Given: New Medications Printed Prescriptions promethazine (promethazine 25 mg Tab) 1 Tablets By Mouth 3 times a day. Refills: 0. PATIENT EDUCATION INFORMATION: Instructions: Chronic Pancreatitis Follow up: With: Address: When: XXXX NONE , [place] In 3 days 10/06/2024 Comments: follow up with your GI physician DIAGNOSIS: Chronic pancreatitis HEP FUNC PANEL Collected: 5 5:52 PM Status: F Source: [facility] TYPE CODE TESTS RESULT OUT OF RANGE REFERENCE UNITS LAB [id number](LOINC) ALT 9 Normal 6-46 Int._Uni t /L LAB [id number](LOINC) AST 16 Normal 5-43 Int._Uni t /L LAB [id number](LOINC) Albumin Lvl 4.5 Normal 3.3-5.0 gm/d L LAB [id number](LOINC) Globulin 2.5 Normal 1.4-4.0 gm/dL LAB [id number](LOINC) A/G Ratio 1.8 Normal 1.1-2.2 LAB [id number](LOINC) Alk Phos 109 High 21-98 Int._Un it /L LAB [id number](LOINC) Bili Direct 0.0 Normal 0.0-0.4 mg/d L LAB [id number](LOINC) Bili Indirect 0.3 Normal 0.1-0.9 mg /dL LAB [id number](LOINC) Bili Total 0.3 Normal 0.0-1.1 mg/dL LAB [id number](LOINC) Total Protein 7.0 Normal 6.0-7.8 gm /dL Performed By: #### [id number] # ### [facility] [address] [place] [address] CBC W/ AUTO DIFF Collected: 5 5:52 PM Status: F Source: [facility] TYPE CODE TESTS RESULT OUT OF RANGE REFERENCE UNITS LAB [id number](INC) WBC 10.3 Normal 4.0-11.0 E9/L LAB [id number](INC) RBC 4.4 Normal 4.3-5.9 E12/L LAB 34035986(INC) HGB 14.3 Normal 12.0-16.0 gm/dL LAB [id number](LOINC) Hct 42.5 Normal 34.0-46.0 % LAB 98156074(INC) RDW 13.5 Normal 10.9-14.2 % LAB 86336630(LOINC) MCH 32.6 Normal 27.0-34.0 pg LAB [id number](LOINC) MCHC 33.7 Normal 31.4-36.0 gm/dL LAB [id number](LOINC) MCV 96.8 Normal 80.0-100.0 fL LAB 76178952(LOINC) MPV 7.9 Normal 6.4-10.8 fL LAB [id number](LOINC) Platelet 296.0 Normal 150.0-500.0 E9/ L LAB [id number](LOINC) Neutro Auto 61.4 Normal 36.0-75.0 % LAB 03878917(LOINC) Lymph Auto 27.2 Normal 14.0-50.0 % LAB 08439276(LOINC) Monroe Auto 8.9 Normal 4.0-14.0 % LAB [id number](LOINC) Eos Auto 1.4 Normal 0.0-8.0 % LAB [id number](LOINC) Basophil Auto 1.1 Normal 0.0-2.0 % LAB 36327212(LOINC) Neutro Absolute 6.3 Normal 2.0-7.5 E9/L LAB [id number](LOINC) Lymph Absolute 2.8 Normal 1.0-4.0 E9/L LAB [id number](LOINC) [place] Absolute 0.9 Normal 0.2-1.0 E9 /L LAB [id number](LOINC) Eos Absolute 0.1 Normal 0.0-0.5 E9/ L LAB 67859414(INC) Basophil Absolute 0.1 Normal 0.0-0.2 E9/L Performed By: #### [id number] # ### [facility] [address] [place] [address] BMP Collected: 10/03/2024 5:52 PM Status: F Source: [facility] TYPE CODE TESTS RESULT OUT OF RANGE REFERENCE UNITS LAB [id number](INC) Glucose Lvl 112 Normal 55-199 mg/d L LAB [id number](INC) BUN 9 Normal 5-21 mg/dL LAB [id number]([facility]) Creatinine 0.8 Normal 0.5-1.3 mg/dL LAB [id number]([facility]) BUN/Creat Ratio 11 Normal 10-20 No Units LAB [id number]([facility]) Calcium Lvl 9.9 Normal 8.9-11.1 mg/ dL LAB 55451647(INC) Sodium Lvl 138 Normal 135-145 mmol/ L LAB 52079475(INC) Potassium Lvl 3.6 Normal 3.5-5.3 mm ol/L LAB 49451854(INC) Chloride 107 Normal 101-111 mmol/L LAB 11888543([facility]) CO2 25 Normal 21-31 mmol/L LAB [id number]([facility]) AGAP 10 Normal 6-16 mEq/L Performed By: #### [id number] # ### [facility] [address] [place] [address] EXTRA BLUE Collected: 10/03/2024 5:52 PM Status: F Source: [facility] TYPE CODE TESTS RESULT OUT OF RANGE REFERENCE UNITS LAB CD:[id number](L OINC) Tube Collected Plasma Yes Unknown Performed By: #### [id number] #### [facility] [address] [place] [address] EGFR Collected: 5:52 PM Status: F Source: [facility] TYPE CODE TESTS RESULT OUT OF RANGE REFERENCE UNITS LAB [id number](LOINC) eGFR 87 Normal >=59 mL/min/1 .7 3 m2 Performed By: #### [id number] #### [facility] [address] [place] [address] LIPASE LEVEL Collected: 5:52 PM Status: F Source: [facility] TYPE CODE TESTS RESULT OUT OF RANGE REFERENCE UNITS LAB [id number](LOINC) Lipase Lvl 199 High 13-58 unit/ L Performed By: #### [id number] # ### [facility] [address] [place] [address] ED NOTE-PHYSICIAN Observed: 10/03/2024 5:23 PM Status: F Source: [facility] ED Note-Physician Basic Information Time Seen: Levar [...] relief. Follows with GI out of the [place] area Review of Systems A 10 point review [...] made to ensure accuracy, however, inadvertently computerized fiber heel piece shaper mistakes may be present. Appropriate healthcare PPE [...] % (10/03/24 17:52:00) MCV: 96.8 fL (10/03/24 17:52:00) MCH: 32.6 pg (10/03/24 17:52:00) MCHC: 33.7 gm/dL (10/03/24 17:52:00) RDW: 13.5 % (10/03/24 17:52:00) Platelet: 296 E9/L (10/03/24 17:52:00) MPV: 7.9 fL (10/03/24 17:52:00) Neutro Auto: 61.4 % (10/03/24 17:52:00) Lymph Auto: 27.2 % (10/03/24 17:52:00) Monroe Auto: 8.9 % (10/03/24 17:52:00) Eos Auto: 1.4 % (10/03/24 17:52:00) Basophil Auto: 1.1 % (10/03/24 17:52:00) Neutro Absolute: 6.3 E9/L (10/03/24 17:52:00) Lymph Absolute: 2.8 E9/L (10/03/24 17:52:00) Monroe Absolute: 0.9 E9/L (10/03/24 17:52:00) Eos Absolute: 0.1 E9/L (10/03/24 17:52:00) Basophil Absolute: 0.1 E9/L (10/03/24 17:52:00) Glucose Lvl: 112 mg/dL (10/03/24 17:52:00) BUN: 9 mg/dL (10/03/24 17:52:00) Creatinine: 0.8 mg/dL (10/03/24 17:52:00) eGFR: 87 mL/min/1.73 m2 (10/03/24 17:52:00) BUN/Creat Ratio: 11 (10/03/24 17:52:00) Sodium Lvl: 138 mmol/L (10/03/24 17:52:00) Potassium Lvl: 3.6 mmol/L (10/03/24 17:52:00) Chloride: 107 mmol/L (10/03/24 17:52:00) CO2: 25 mmol/L (10/03/24 17:52:00) AGAP: 10 mEq/L (10/03/24 17:52:00) Calcium Lvl: 9.9 mg/dL (10/03/24 17:52:00) Alk Phos: 109 Int._Unit/L High (10/03/24 17:52:00) ALT: 9 Int._Unit/L (10/03/24 17:52:00) AST: 16 Int._Unit/L (10/03/24 17:52:00) Total Protein: 7 gm/dL (10/03/24 17:52:00) Albumin Lvl: 4.5 gm/dL (10/03/24 17:52:00) Globulin: 2.5 gm/dL (10/03/24 17:52:00) A/G Ratio: 1.8 (10/03/24 17:52:00) Bili Total: 0.3 mg/dL (10/03/24 17:52:00) Bili Direct: 0 mg/dL (10/03/24 17:52:00) Bili Indirect: 0.3 mg/dL (10/03/24 17:52:00) Lipase Lvl: 199 unit/L High (10/03/24 17:52:00) Diagnostic Results No qualifying data available. Result Comment: Electronical ly Signed By: Levar Jara PA-C\.br\Date and Time Signed: 10/03/24 18:38 EDT\.br\Electronically Co-Signed By: Darrel Ferrer DO\.br\Date and Time Co-Signed: 10/03/24 18:48 EDT CBC WITH DIFF Collected: 09/27/2024 11:50 AM Status: F Source: [facility] TYPE CODE TESTS RESULT OUT OF RANGE REFERENCE UNITS LAB WBC(LOINC) WBC Count 8.2 3.5-11.3 k/uL LAB RBC(LOINC) RBC Count 4.67 3.95-5.11 m/uL LAB HGB(LOINC) Hemoglobin 15.5 High 11.9-15.1 g/dL LAB HCT(LOINC) Hematocrit 45.2 36.3-47.1 % LAB MCV(LOINC) MCV 96.8 82.6-102.9 fL LAB MCH(LOINC) MCH 33.2 25.2-33.5 pg LAB MCHC(LOINC) MCHC 34.3 28.4-34.8 g/dL LAB RDW(LOINC) RDW 13.0 11.8-14.4 % LAB PLT(LOINC) Platelet Count See Reflexed IPF Result 138-453 k/uL LAB PLTFL(LOINC) Platelet, Fluoresc. 159 138-453 k/uL LAB IPLTF(LOINC) PLT, Immature Fract. 2.4 1.1-10.3 % LAB NRBCS(LOINC) NRBC Automated 0.0 0.0 per 100 WBC LAB SEG(LOINC) Neutrophil (Seg) 63 36-65 % LAB LYM(LOINC) Lymphocyte 26 24-43 % LAB MON(LOINC) Monocyte 9 3-12 % LAB EO(LOINC) Eosinophil 1 1-4 % LAB IGRAN(LOINC) Immature Granulocyte 0 0 % LAB BASO(LOINC) Basophil 1 0-2 % LAB ASEG(LOINC) Abs.Neutrophil (Seg) 5.17 1.50-8.10 k/uL LAB ALYM(LOINC) Abs. Lymph 2.13 1.10-3.70 k/uL LAB AMONO(LOINC) Abs. Monocyte 0.74 0.10-1.20 k/u L LAB AEO(LOINC) Abs. Eosinophil 0.08 0.00-0.44 k/u L LAB AIGRAN(LOINC) Abs.Imm.Granulo cyte 0.00 0.00-0.30 k/uL LAB ABASO(LOINC) Abs. Basophil 0.08 0.0-0.2 k/uL LAB MORPH(LOINC) Morphology Normal Performed By: #### CDP, LIP, CP #### [facility] [address] [place] [address] Business Job Titles: Kye Jasso MD COMP METABOLIC PROF Collected: 09/28/19 25 11:50 AM Status: F Source: [facility] TYPE CODE TESTS RESULT OUT OF RANGE REFERENCE UNITS LAB NA(LOINC) NA (Sodium) 139 136-145 mmol/L LAB K(LOINC) K (Potassium) 4.2 3.7-5.3 mmol/L Result Comment: Specimen hem olysis has exceeded the interference as defined by Joycelyn. Value may be falsely increased. Suggest recollection if clinically indicated. LAB CL(LOINC) Chloride 103 98-107 mmol/L LAB HCO(LOINC) CO2 21 20-31 mmol/L LAB GAP(LOINC) Anion Gap 15 9-16 mmol/L LAB GLU(LOINC) Glucose 91 74-99 mg/dL LAB BUN(LOINC) BUN (Urea N) 8 6-20 mg/dL LAB CRE(LOINC) Creatinine 0.8 0.50-0.90 [...] renal tubular secretion. LAB BUNCRE(LOINC) BUN/CRE Ratio 10 9-20 LAB CA(LOINC) Calcium 10.1 8.6-10.4 mg/dL LAB TP(LOINC) Protein, Total 7.5 6.6-8.7 g/dL LAB ALB(LOINC) Albumin 4.6 3.5-5.2 g/dL LAB AG(LOINC) Albumin/Glob Ratio 1.6 1.0-2.5 LAB TBIL(LOINC) Bilirubin, Total 0.3 0.00-1.20 mg/dL LAB ALP(LOINC) Alkaline Phos 145 High 35-104 U/L LAB ALT(LOINC) ALT 12 10-35 U/L LAB AST(INC) AST 24 10-35 U/L Performed By: #### CDP, LIP, CP #### [facility] [address] [place] [address] Business Job Titles: Kye Jasso MD LIPASE Collected: 5 11:50 AM Status: F Source: [facility] TYPE CODE TESTS RESULT OUT OF RANGE REFERENCE UNITS LAB LIP(LOINC) Lipase 48 13-60 U/L Performed By: #### CDP, LIP, CP #### [facility] [address] [place] [address] Business Job Titles: Kye Jasso MD LACTIC ACID Collected: 11:50 AM Status: F Source: [facility] TYPE CODE TESTS RESULT OUT OF RANGE REFERENCE UNITS LAB LAC(LOINC) Lactic Acid 1.0 0.5-2.2 mmol/L Performed By: #### LACTIC ## ## [facility] [address] [place] [address] Business Job Titles: Kye Jasso MD CBC WITH DIFF Collected: 09/20/2024 6:52 PM Status: F Source: [facility] TYPE CODE TESTS RESULT OUT OF RANGE REFERENCE UNITS LAB WBC(LOINC) WBC Count 10.7 3.5-11.3 k/uL LAB RBC(LOINC) RBC Count 4.32 3.95-5.11 m/uL LAB HGB(LOINC) Hemoglobin 14.4 11.9-15.1 g/dL LAB HCT(LOINC) Hematocrit 42.0 36.3-47.1 % LAB MCV(LOINC) MCV 97.2 82.6-102.9 fL LAB MCH(LOINC) MCH 33.3 25.2-33.5 pg LAB MCHC(LOINC) MCHC 34.3 28.4-34.8 g/dL LAB RDW(LOINC) RDW 13.1 11.8-14.4 % LAB PLT(LOINC) Platelet Count 258 138-453 k/uL LAB MPVX(LOINC) MPV 9.7 8.1-13.5 fL LAB NRBCS(LOINC) NRBC Automated 0.0 0.0 per 100 WBC LAB SEG(LOINC) Neutrophil (Seg) 60 36-65 % LAB LYM(LOINC) Lymphocyte 28 24-43 % LAB MON(LOINC) Monocyte 9 3-12 % LAB EO(LOINC) Eosinophil 2 1-4 % LAB BASO(LOINC) Basophil 1 0-2 % LAB IGRAN(LOINC) Immature Granulocyte 0 0 % LAB ASEG(LOINC) Abs.Neutrophil (Seg) 6.53 1.50-8.10 k/uL LAB ALYM(LOINC) Abs. Lymph 2.98 1.10-3.70 k/uL LAB AMONO(LOINC) Abs. Monocyte 0.96 0.10-1.20 k/u L LAB AEO(LOINC) Abs. Eosinophil 0.17 0.00-0.44 k/u L LAB ABASO(LOINC) Abs. Basophil 0.06 0.00-0.20 k/u L LAB AIGRAN(LOINC) Abs.Imm.Granulo cyte 0.03 0.00-0.30 k/uL Performed By: #### LIP, CP, CDP #### [facility] [address] [place], [place] [id number] Business Job Titles: Kye Jasso MD COMP METABOLIC PROF Collected: 09/21/19 6:52 PM Status: F Source: [facility] TYPE CODE TESTS RESULT OUT OF RANGE REFERENCE UNITS LAB NA(LOINC) NA (Sodium) 140 136-145 mmol/L LAB K(LOINC) K (Potassium) 4.4 3.7-5.3 mmol/L LAB CL(LOINC) Chloride 105 98-107 mmol/L LAB HCO(LOINC) CO2 23 20-31 mmol/L LAB GAP(LOINC) Anion Gap 12 9-16 mmol/L LAB GLU(LOINC) Glucose 97 74-99 mg/dL LAB BUN(LOINC) BUN (Urea N) 8 6-20 mg/dL LAB CRE(LOINC) Creatinine 0.9 0.50-0.90 mg/dL LAB EGFR(LOINC) eGFR 77 >60 mL/min/1. 73m2 Result Comment: These results [...] BUN/CRE Ratio 9 9-20 LAB CA(LOINC) Calcium 9.6 8.6-10.4 mg/dL LAB TP(LOINC) Protein, Total 6.8 6.6-8.7 g/dL LAB ALB(LOINC) Albumin 4.4 3.5-5.2 g/dL LAB AG(LOINC) Albumin/Glob Ratio 1.8 1.0-2.5 LAB TBIL(LOINC) Bilirubin, Total <0.2 0.00-1.20 mg/dL LAB ALP(LOINC) Alkaline Phos 127 High 35-104 U/L LAB ALT(LOINC) ALT 10 10-35 U/L LAB AST(LOINC) AST 19 10-35 U/L Performed By: #### LIP, CP, CDP #### [facility] [address] [place] [address] [place] [address] Business Job Titles: Kye Jasso MD LIPASE Collected: 5 6:52 PM Status: F Source: [facility] TYPE CODE TESTS RESULT OUT OF RANGE REFERENCE UNITS LAB LIP(LOINC) Lipase 89 High 13-60 U/L Performed By: #### LIP, CP, CDP #### [facility] [address] [place] [address] Dr[address] [place] [id number] Business Job Titles: Kye Jasso MD LACTIC ACID Collected: 5 6:52 PM Status: F Source: [facility] TYPE CODE TESTS RESULT OUT OF RANGE REFERENCE UNITS LAB LAC(INC) Lactic Acid 1.2 0.5-2.2 mmol/L Performed By: #### LACTIC ## ## [address] [place] [address] Business Job Titles: Kye Jasso MD URINALYSIS W/ MICRO Collected: 09/21/19 6:31 PM Status: F Source: [facility] TYPE [facility] [place] RESULT OUT OF RANGE REFERENCE UNITS LAB UCO(LOINC) Color Yellow YEL LAB UTU(LOINC) Clarity, Urine Clear CLEAR LAB UGL(LOINC) Glucose,Semi-q nt,Ur NEGATIVE NEG mg/dL LAB UBI(LOINC) Bilirubin, SemiQt,Ur NEGATIVE NEG LAB UKE(LOINC) Ketones, Urine NEGATIVE NEG mg/dL LAB USG(LOINC) Spec. [place],Ur >1.030 High 1.010-1.020 LAB UHB(LOINC) Blood, Urine NEGATIVE NEG LAB UPH(LOINC) PH,Ur 6.0 5.0-9.0 LAB UPR(LOINC) Protein, Semi-qnt,Ur NEGATIVE NEG mg/dL LAB UUR(LOINC) Urobilinogen,U r Normal 0.0-1.0 EU/dL LAB UNI(LOINC) Nitrite,Ur NEGATIVE NEG LAB ULE(LOINC) Leukocyte Esterase NEGATIVE NEG LAB UWBC(LOINC) Urine WBC's None 0-5 /HPF LAB URBC(LOINC) Urine RBC's None 0-2 /HPF LAB EPITH(LOINC) Epithelial cells 2 TO 5 0-25 /HPF LAB BACT(LOINC) Bacteria 2+ Abnormal NONE Performed By: #### UAMIC ### # [facility] [address] [place] [address] Business Job Titles: Kye Jasso MD POCT NURSING URINE MACROSCOPIC UA Collected: 09/19/2024 12:10 AM Status: COMPLETED Source: [facility] TYPE CODE TESTS RESULT OUT OF RANGE REFERENCE UNITS LAB SPGRN SPECIFIC GRAVITY JERE 1.025 1.010, 1.015, 1.020, 1.025 LAB LESTN LEUKOCYTE ESTERASE JERE Negative Negative LAB NITN NITRITE JERE Negative Negative LAB PHURN PH JERE 5.5 5.0, 6.0, 6.5, 7.0, 7.5, 8.0, 8.5, 5.5 LAB PRURN PROTEIN JERE Negative Negative LAB GLURN GLUCOSE JERE Negative Negative LAB KETN KETONES JERE Negative Negative LAB UROBN UROBILINOGEN JERE 0.2 E.U./dL LAB BILEN BILIRUBIN JERE Negative Negative LAB BLURN BLOOD/HGB JERE Negative Negative Performed By: #### NUM #### [facility] ([address] ABDOMEN AND PELVIS W CONT Observed: 09/19/2024 12:07 AM Status: COMPLETED Source: [facility] CT ABDOMEN AND PELVIS W CONT [...] as low as reasonably achievable Finalized by Kye Dasilva MD on 09/19/2024 1:15 AM TROP I, HIGH SENSITIVITY 1 HOUR Collected: 09/06 10:16 PM Status: COMPLETED Source: [facility] TYPE CODE TESTS RESULT OUT OF RANGE REFERENCE UNITS LAB TNIHS TROPONIN I, HIGH SENSITIVITY 2 <16 ng/L Performed By: #### [email or web address] ## ## [facility] ([facility], [facility] [address] [place] [address]. [place] [address] VIR CBC WITH AUTO DIFFERENTIAL Collected: 0 09/18/2024 8:54 PM Status: COMPLETED Source: [facility] TYPE CODE TESTS RESULT OUT OF RANGE REFERENCE UNITS LAB WBC WBC 10.5 4-11 x10E9/L LAB RBC RBC COUNT 4.43 3.8-5.2 X10E12/L LAB HGB HEMOGLOBIN 14.8 11.7-15.5 g/dL LAB HCT HEMATOCRIT 42.3 35-47 % LAB MCV MCV 96 80-100 fL LAB MCH MCH 33.4 27-34 pg LAB MCHC MCHC 34.9 32-36 g/dL LAB RDW RDW 13.7 11.5-15 % LAB PLTC PLATELET COUNT 283 150-450 X10E9/L LAB MPV MPV 8.3 7-12 fL LAB NEUT NEUTROPHILS RELATIVE PERCENT BY AUTOMATED COUNT 62.3 % LAB LYMP LYMPHOCYTES RELATIVE PERCENT BY AUTOMATED COUNT 26.7 % LAB MONO MONOCYTES RELATIVE PERCENT BY AUTOMATED COUNT 8.8 % LAB EOS EOSINOPHILS RELATIVE PERCENT BY AUTOMATED COUNT 1.5 % LAB BASO BASOPHILS RELATIVE PERCENT BY AUTOMATED COUNT 0.7 % LAB ANEUT NEUTROPHILS ABSOLUTE COUNT BY AUTOMATED COUNT 6.6 1.5-6.6 10*3/uL LAB ALYMP LYMPHOCYTES ABSOLUTE COUNT (10*3/UL) BY AUTOMATED COUNT 2.8 1.0-3.5 10*3/uL LAB AMONO MONOCYTES ABSOLUTE COUNT (10*3/UL) BY AUTOMATED COUNT 0.9 0.0-0.9 10*3/uL LAB AEOS EOSINOPHILS ABSOLUTE COUNT (10*3/UL) BY AUTOMATED COUNT 0.2 0.0-0.4 10*3/uL LAB ABASO BASOPHILS ABSOLUTE COUNT (10*3/UL) BY AUTOMATED COUNT 0.1 0.0-0.2 10*3/uL LAB DTYPE CELLAVISION DIFFERENTIAL TYPE AUTOMATED DIFFERENTIAL Performed By: #### CBCA #### [place] [address] VIR PROTIME AND INR Collected: 09/18/2024 8:54 PM Status: COMPLETED Source: [facility] TYPE CODE TESTS RESULT OUT OF RANGE REFERENCE UNITS LAB PROX PROTIME 10.9 9.8-13.2 sec LAB INR INR 1.0 0.9-1.2 NA Performed By: #### PINR #### [place] [address] VIR APTT Collected: 09/18/2024 8:54 PM S tatus: COMPLETED Source: [facility] TYPE CODE TESTS RESULT OUT OF RANGE REFERENCE UNITS LAB PTT APTT 26 26-37 sec Performed By: #### PTT #### [place] [address] VIR MAGNESIUM Collected: 09/18/2024 8:54 PM S tatus: COMPLETED Source: [facility] TYPE CODE TESTS RESULT OUT OF RANGE REFERENCE UNITS LAB MG MAGNESIUM 2.4 1.8-2.6 mg/dL Performed By: #### MG #### [place] [address] VIR BASIC METABOLIC PANEL Collected: 09/18/2024 8:5 4 PM Status: COMPLETED Source: [facility] TYPE CODE TESTS RESULT OUT OF RANGE REFERENCE UNITS LAB NA SODIUM 139 134-146 mmol/L LAB K POTASSIUM 3.5 3.5-5.0 mmol/L LAB CL CHLORIDE 106 98-109 mmol/L LAB CO2 CARBON DIOXIDE 27 22-32 mmol/L LAB AGAP ANION GAP 6 5-15 mmol/L LAB BUN BLOOD UREA NITROGEN 10 5-23 mg/dL LAB CRET CREATININE 0.91 0.40-1.00 mg/dL Result Comment: METHOD TRACE ABLE TO IDMS STANDARD LAB GLU GLUCOSE 76 65-99 mg/dL LAB CA CALCIUM 9.8 8.5-10.5 mg/dL LAB EGFR EGFR (CKD-EPI) NON-RACE DEPENDENT 75 >=60 ml/min/1. 73sq.m Result Comment: eGFR not rep orted due to non-numeric value for Creatinine. Reported eGFR is based on the CKD-EPI 2020 equation that does not use a race coefficient. Performed By: #### BMP #### [address] [address] VIR ETHANOL Collected: 09/18/2024 8:54 PM S tatus: COMPLETED Source: [facility] TYPE CODE TESTS RESULT OUT OF RANGE REFERENCE UNITS LAB ALCO ETHANOL <^0.010 <=0.080 g/dL Result Comment: This report is intended for use in clinical monitoring or management of patients. Performed By: #### ALCO #### [address] [address] VIR TROPONIN I, HIGH SENSITIVITY 0 HOUR Collected: 09/18/2024 8:54 PM Status: COMPLETED Source: [facility] TYPE CODE TESTS RESULT OUT OF RANGE REFERENCE UNITS LAB TNIHS TROPONIN I, HIGH SENSITIVITY 3 <16 ng/L Performed By: #### [email or web address] ## ## [address] [address] VIR LIPASE Collected: 09/18/2024 8:54 PM S tatus: COMPLETED Source: [facility] TYPE CODE TESTS RESULT OUT OF RANGE REFERENCE UNITS LAB LIPA LIPASE 187 High 17-40 U/L Performed By: #### LIPA #### [address] [address] VIR LIVER PANEL Collected: 09/18/2024 8:54 PM S tatus: COMPLETED Source: [facility] TYPE CODE TESTS RESULT OUT OF RANGE REFERENCE UNITS LAB TP TOTAL PROTEIN 7.4 6.0-8.0 g/dL LAB ALB ALBUMIN 4.3 3.2-5.3 g/dL LAB TBIL BILIRUBIN,TOTAL 0.3 0.3-1.2 mg/dL LAB ALK ALKALINE PHOSPHATASE 127 39-130 U/L LAB AST AST 20 <=41 U/L LAB ALT ALT 13 <=31 U/L LAB DBIL BILIRUBIN,DIRECT <^0.1 <=0.4 mg/dL Performed By: #### LIVR #### [facility], [facility] [address] [place] [address] [place] [address] VIR CBC WITH AUTO DIFFERENTIAL Collected: 0 09/05/2024 10:27 PM Status: COMPLETED Source: [facility] TYPE CODE TESTS RESULT OUT OF [...] DIFFERENTIAL Performed By: #### CBCA #### [facility] ([address] [address] VIR LIPASE Collected: 09/05/2024 10:27 PM Status: COMPLETED Source: [facility] TYPE CODE TESTS RESULT OUT OF RANGE REFERENCE UNITS LAB LIPA LIPASE 44 High 17-40 U/L Performed By: #### LIPA #### [address] [place] [address] VIR COMPREHENSIVE METABOLIC PANEL Collected : 09/05/2024 10:27 PM Status: COMPLETED Source: [facility] TYPE CODE TESTS RESULT OUT OF [...] race coefficient. Performed By: #### CMP #### [facility] [address] [address] VIR CBC WITH AUTO DIFFERENTIAL Collected: 0 08/10/2024 5:52 PM Status: COMPLETED Source: [facility] TYPE CODE TESTS RESULT OUT OF [...] AUTOMATED DIFFERENTIAL Performed By: #### CBCA #### [facility] ([address] [address] VIR LIPASE Collected: 08/10/2024 5:52 PM S tatus: COMPLETED Source: [facility] TYPE CODE TESTS RESULT OUT OF RANGE REFERENCE UNITS LAB LIPA LIPASE 138 High 17-40 U/L Performed By: #### LIPA #### [facility] ([address] [address] VIR COMPREHENSIVE METABOLIC PANEL Collected: 2024 5:52 PM Status: COMPLETED Source: [facility] TYPE CODE TESTS RESULT OUT OF [...] race coefficient. Performed By: #### CMP #### [facility] ([facility]) [address] [place] [id number] VIR UA W/REFLEX CULTURE Collected: 08/08/2024 7:[address] [facility]: F Source: [facility], [facility] TYPE CODE TESTS RESULT OUT OF RANGE REFERENCE UNITS LAB UCO(LOINC) Color Yellow YEL LAB UTU(LOINC) Clarity, Urine SLIGHTLY CLOUDY Abnormal CLEAR LAB UGL(LOINC) Glucose,Semi-q nt,Ur NEGATIVE NEG mg/dL LAB UBI(LOINC) Bilirubin, SemiQt,Ur NEGATIVE NEG LAB UKE(LOINC) Ketones, Urine NEGATIVE NEG mg/dL LAB USG(LOINC) Spec. [place],Ur 1.020 1.010-1.020 LAB UHB(LOINC) Blood, Urine NEGATIVE NEG LAB UPH(LOINC) PH,Ur 6.0 5.0-9.0 LAB UPR(LOINC) Protein, Semi-qnt,Ur NEGATIVE NEG mg/dL LAB UUR(LOINC) Urobilinogen,U r Normal 0.0-1.0 EU/dL LAB UNI(LOINC) Nitrite,Ur NEGATIVE NEG LAB ULE(LOINC) Leukocyte Esterase NEGATIVE NEG Performed By: #### UMICAO, U AX #### [facility] [address] [place] [address] [place] [address] Business Job Titles: Kye Jasso MD URINALYSIS,MICRO Collected: 7:40 PM Status: F Source: [facility] TYPE CODE TESTS RESULT OUT OF RANGE REFERENCE UNITS LAB UWBC(LOINC) Urine WBC's 0 TO 2 0-5 /HPF LAB URBC(LOINC) Urine RBC's 0 TO 2 0-2 /HPF LAB EPITH(LOINC) Epithelial cells 10 TO 20 0-25 /HPF LAB BACT(LOINC) Bacteria 1+ Abnormal NONE LAB MUC(LOINC) Mucus Strands TRACE Abnormal NONE LAB AMORPH(LOINC) Amorphous Sediment TRACE Abnormal NONE Performed By: #### UMICAO, U AX #### [address] [place] [address] Business Job Titles: Kye Jasso MD LACTIC ACID Collected: 7:10 PM Status: F Source: [facility] TYPE CODE TESTS RESULT OUT OF RANGE REFERENCE UNITS LAB LAC(LOINC) Lactic Acid 1.2 0.5-2.2 mmol/L Performed By: #### LACTIC ## ## [address] [place] [address] Business Job Titles: Kye Jasso MD CBC WITH DIFF Collected: 08/08/2024 7:10 PM Status: F Source: [facility] TYPE CODE TESTS RESULT OUT OF RANGE [...] cyte 0.04 0.00-0.30 k/uL Performed By: #### LIP, CP, CDP, MG #### [facility] [address] [place] [address] Business Job Titles: Kye Jasso MD COMP METABOLIC PROF Collected: 08/09/19 25 7:10 PM Status: F Source: [facility] TYPE CODE TESTS RESULT OUT OF RANGE [...] AST 21 10-35 U/L Performed By: #### LIP, CP, CDP, MG #### [facility] [address] [place] [address] Business Job Titles: Kye Jasso MD LIPASE Collected: 5 7:10 PM Status: F Source: [facility] TYPE CODE TESTS RESULT OUT OF RANGE REFERENCE UNITS LAB LIP(LOINC) Lipase 109 High 13-60 U/L Performed By: #### LIP, CP, CDP, MG #### [facility] [address] [place], [place] [address]83 Business Job Titles: Kye Jasso MD MAGNESIUM Collected: 7:10 PM Status: F Source: [facility] TYPE CODE TESTS RESULT OUT OF RANGE REFERENCE UNITS LAB MG(LOINC) Magnesium 2.4 1.6-2.6 mg/dL Performed By: #### LIP, CP, CDP, MG #### [facility] [address] [place] [address] Dr. [place], [place] 5986983 Business Job Titles: Kye Jasso MD CBC AND AUTO DIFF Collected: 06/27/2024 1:58 PM Status: COMPLETED Source: [facility] TYPE CODE TESTS RESULT OUT OF [...] BASOPHIL 0.1 0.0-0.2 X10E9/L Performed By: #### BONNIE MOLINA , 3040-3 #### [facility] ([id number]) [address] [place] [address] 80360 COMPREHENSIVE METABOLIC PANEL Collected: 2024 1:58 PM Status: COMPLETED Source: [facility] TYPE CODE TESTS RESULT OUT OF [...] By: #### BONNIE MOLINA , 3040-3 #### [facility] ([id number]) [address] [place] [address] 95805 LIPASE Collected: 06/27/2024 1:58 PM S tatus: COMPLETED Source: [facility] TYPE CODE TESTS RESULT OUT OF RANGE REFERENCE UNITS LAB LIPA(LOINC) LIPASE 37 17-40 U/L Performed By: #### CBCA, CMP , 3040-3 #### [facility] ([id number]) [address] [place] [address], [place] [address] CBC AND AUTO DIFF Collected: 06/15/2024 6:00 PM Status: COMPLETED Source: [facility] TYPE CODE TESTS RESULT OUT OF [...] BASOPHIL 0.1 0.0-0.2 X10E9/L Performed By: #### TRACY, FRANNIE , 3040-3, 5643-2, LIVR, 13718-5 #### [facility] ([id number]) [address] [place] [address] 19595 BASIC METABOLIC PANL Collected: 06/15/2024 6:00 PM Status: COMPLETED Source: [facility] TYPE CODE TESTS RESULT OUT OF [...] use a race coefficient. Performed By: #### TRACY, FRANNIE , 3040-3, 5643-2, LIVR, 60433-6 #### [facility] ([id number]) [address] [place] [address] 02549 LIPASE Collected: 06/15/2024 6:00 PM S tatus: COMPLETED Source: [facility] TYPE CODE TESTS RESULT OUT OF RANGE REFERENCE UNITS LAB LIPA(LOINC) LIPASE 83 High 17-40 U/L Performed By: #### TRACY, FRANNIE , 3040-3, 5643-2, LIVR, 69308-4 #### [facility] ([id number]) [address] [place] [address] 36001 ETHANOL Collected: 06/15/2024 6:00 PM S tatus: COMPLETED Source: [facility] TYPE CODE TESTS RESULT OUT OF RANGE REFERENCE UNITS LAB ALCO(LOINC) ETHANOL <0.01 0.00-0.08 g/dL Result Comment: This report is intended for use in clinical monitoring or management of patients. Performed By: #### TRACY, FRANNIE , 3040-3, 5643-2, LIVR, 10162-1 #### [facility] ([id number]) [address] [place] [address] 25935 LIVER PANEL Collected: 06/15/2024 6:00 PM S tatus: COMPLETED Source: [facility] TYPE CODE TESTS RESULT OUT OF [...] #### TRACY, FRANNIE , 3040-3, 5643-2, LIVR, 84162-5 #### [facility] ([id number]) [address] [place] [address] 73326 MAGNESIUM Collected: 06/15/2024 6:00 PM S tatus: COMPLETED Source: [facility] TYPE CODE TESTS RESULT OUT OF RANGE REFERENCE UNITS LAB MG(LOINC) MAGNESIUM 2.1 1.8-2.6 mg/dL Performed By: #### TRACY, FRANNIE , 3040-3, 5643-2, LIVR, 12388-1 #### [facility] ([id number]) [address] [place] [address] 27912 LACTATE W/REFLEX Collected: 06/15/2024 6:00 PM Status: COMPLETED Source: [facility] TYPE CODE TESTS RESULT OUT OF RANGE REFERENCE UNITS LAB LACTS(LOINC) LACTATE W/REFLEX 1.1 0.4-2.0 mmol/L Result Comment: Result did not trigger repeat Lactate, re-order if needed. Performed By: #### 52164-6 # ### [facility] ([id number]) [address] [place] [address], [place] [address] CT ABDOMEN AND PELVIS W CONT Observed: 05/31/2024 3:04 PM Status: COMPLETED Source: [facility] CT ABDOMEN AND PELVIS W CONT [...] Collected: 05/31/2024 2:50 PM Status: COMPLETED Source: [facility] TYPE CODE TESTS RESULT OUT OF [...] By: #### CBCA, CMP , 3040-3 #### [facility] ([id number]) [address] [place] [address], [place] [address] COMPREHENSIVE METABOLIC PANEL Collected: 2024 2:50 PM Status: COMPLETED Source: [facility] TYPE CODE TESTS RESULT OUT OF [...] use a race coefficient. Performed By: #### TRACY, CMP , 3040-3 #### [facility] ([id number]) [address] [place] [address] LIPASE Collected: 05/31/2024 2:50 PM S tatus: COMPLETED Source: [facility] TYPE CODE TESTS RESULT OUT OF RANGE REFERENCE UNITS LAB LIPA(LOINC) LIPASE 104 High 17-40 U/L Performed By: #### CBCA, CMP , 3040-3 #### [facility] ([id number]) [address] [place] [address] URINALYSIS, ROUTINE Collected: 04/07/2024 5:[address] atus: F Source: [facility] TYPE CODE TESTS RESULT OUT OF RANGE REFERENCE UNITS LAB UCO(LOINC) Color Yellow YEL LAB UTU(LOINC) Clarity, Urine Clear CLEAR LAB UGL(LOINC) Glucose,Semi-q nt,Ur NEGATIVE NEG mg/dL LAB UBI(LOINC) Bilirubin, SemiQt,Ur NEGATIVE NEG LAB UKE(LOINC) Ketones, Urine NEGATIVE NEG mg/dL LAB USG(LOINC) Spec. [place],Ur 1.010 1.010-1.020 LAB UHB(LOINC) Blood, Urine NEGATIVE NEG LAB UPH(LOINC) PH,Ur 5.5 5.0-9.0 LAB UPR(LOINC) Protein, Semi-qnt,Ur NEGATIVE NEG mg/dL LAB UUR(LOINC) Urobilinogen,U r Normal 0.0-1.0 EU/dL LAB UNI(LOINC) Nitrite,Ur NEGATIVE NEG LAB ULE(LOINC) Leukocyte Esterase NEGATIVE NEG Performed By: #### UA #### [facility] [address] [place] [address] Business Job Titles: Kye Jasso MD CT ABDOMEN PELVIS W IV CONTRAST Observed: 04/07/2024 4:16 PM Status: F Source: [facility] EXAMINATION: CT OF THE ABDOMEN AND PELVIS [...] Collected: 025 4:12 PM Status: F Source: [facility] TYPE CODE TESTS RESULT OUT OF RANGE [...] By: #### BMP, LIVP , LIP #### [facility] [address] [place] [address] Business Job Titles: Kye Jasso MD LIPASE Collected: 5 4:12 PM Status: F Source: [facility] TYPE CODE TESTS RESULT OUT OF RANGE REFERENCE UNITS LAB LIP(LOINC) Lipase 266 High 13-60 U/L Performed By: #### BMP, LIVP , LIP #### [facility] [address] [place] [address] Business Job Titles: Kye Jasso MD LIVER PROFILE Collected: 04/07/2024 4:12 PM Status: F Source: [facility] TYPE CODE TESTS RESULT OUT OF RANGE [...] By: #### BMP, LIVP , LIP #### [facility] [address] [place] [address] Business Job Titles: Kye Jasso MD CBC WITH DIFF Collected: 04/07/2024 3:15 PM Status: F Source: [facility] TYPE CODE TESTS RESULT OUT OF RANGE [...] Abs. Basophil 0.08 0.00-0.20 k/u L LAB AIGRAN([facility]) Abs.Imm.Granulo cyte 0.03 0.00-0.30 k/uL Performed By: #### JESUS ALBERTO WATSON #### [address] [place] [address] Business Job Titles: Kye Jasso MD SPECIMEN REJECTION Collected: 04/07/2024 3:15 PM Sta tus: F Source: [facility] TYPE CODE TESTS RESULT OUT OF RANGE REFERENCE UNITS LAB SOURC([facility]) Source of sample .BLOOD LAB ORDER([facility]) Test ordered LIP,LIVP, BMP LAB REASON([facility]) Reason for rejection Unable to perform testing: Specimen hemolyzed. Performed By: #### JESUS ALBERTO WATSON #### [address] [place] [address] Business Job Titles: Kye Jasso MD CT ABDOMEN AND PELVIS W CONT Observed: 03/18/2024 3:21 PM Status: COMPLETED Source: [facility] CT ABDOMEN AND PELVIS W CONT CT [...] Collected: 03/18/2024 1:05 PM Status: COMPLETED Source: [facility] TYPE CODE TESTS RESULT OUT OF [...] By: #### CBCA, CMP , 3040-3 #### [facility] ([id number]) [address] [place] [address], [place] [address] COMPREHENSIVE METABOLIC PANEL Collected: 2024 1:05 PM Status: COMPLETED Source: [facility] TYPE CODE TESTS RESULT OUT OF [...] By: #### CBCA, CMP , 3040-3 #### [facility] ([id number]) [address] [place] [address] LIPASE Collected: 03/18/2024 1:05 PM S tatus: COMPLETED Source: [facility] TYPE CODE TESTS RESULT OUT OF RANGE REFERENCE UNITS LAB LIPA(INC) LIPASE 73 High 17-40 U/L Performed By: #### CBCA, CMP , 3040-3 #### [facility] ([id number]) [address] [place] [address] URN MACROSCOPIC JERE Collected: 01/14/2024 4:45 PM Status: COMPLETED Source: [facility] TYPE CODE TESTS RESULT OUT OF [...] value) NEG Performed By: #### NUM #### [facility] ([id number]) [address] [facility], [place] [address] CT ABDOMEN AND PELVIS W CONT Observed: 01/14/2024 4:44 PM Status: COMPLETED Source: [facility] CT ABDOMEN AND PELVIS W CONT CLINICAL [...] Collected: 01/14/2024 4:15 PM Status: COMPLETED Source: [facility] TYPE CODE TESTS RESULT OUT OF [...] Performed By: #### CBCA, CMP , 3040-3, 52526-4 #### [facility] ([id number]) [address] [place] [address], [place] [address] COMPREHENSIVE METABOLIC PANEL Collected: 2023 4:15 PM Status: COMPLETED Source: [facility] TYPE CODE TESTS RESULT OUT OF [...] Performed By: #### BONNIE MOLINA , 3040-3, 14778-2 #### [facility] ([id number]) [address] [place] [address] 74733 LIPASE Collected: 01/14/2024 4:15 PM S tatus: COMPLETED Source: [facility] TYPE CODE TESTS RESULT OUT OF RANGE REFERENCE UNITS LAB LIPA(LOINC) LIPASE 72 High 17-40 U/L Performed By: #### BONNIE MOLINA , 3040-3, 76918-3 #### [facility] ([id number]) [address] [place] [address] 17508 MAGNESIUM Collected: 01/14/2024 4:15 PM S tatus: COMPLETED Source: [facility] TYPE CODE TESTS RESULT OUT OF RANGE REFERENCE UNITS LAB MG(LOINC) MAGNESIUM 2.2 1.8-2.6 mg/dL Performed By: #### BONNIE MOLINA , 3040-3, 74239-6 #### [facility] ([id number]) [address] [place] [address] 70942 URINALYSIS W/ MICRO Collected: 01/07/2024 4:[address] atus: F Source: [facility] TYPE CODE TESTS RESULT OUT OF RANGE REFERENCE UNITS LAB UCO(LOINC) Color Yellow YEL LAB UTU(LOINC) Clarity, Urine Clear CLEAR LAB UGL(LOINC) Glucose,Semi-qn t,Ur NEGATIVE NEG mg/dL LAB UBI([facility]) Bilirubin, SemiQt,Ur NEGATIVE NEG LAB UKE([facility]) Ketones, Urine NEGATIVE NEG mg/dL LAB USG([facility]) Spec. [place],Ur 1.010 1.010-1.020 LAB UHB([facility]) Blood, Urine NEGATIVE NEG LAB UPH([facility]) PH,Ur 6.0 5.0-9.0 LAB UPR(LOINC) Protein, Semi-qnt,Ur NEGATIVE NEG mg/dL LAB UUR([facility]) Urobilinogen,Ur Normal 0.0-1.0 EU/dL LAB UNI([facility]) Nitrite,Ur NEGATIVE NEG LAB ULE([facility]) Leukocyte Esterase NEGATIVE NEG LAB UWBC([facility]) Urine WBC's 0 TO 2 0-5 /HPF LAB URBC([facility]) Urine RBC's None 0-2 /HPF LAB EPITH([facility]) Epithelial cells 0 TO 2 0-25 /HPF Performed By: #### UAMIC ### # [facility] [address] [place] [address] Business Job Titles: Kye Jasso MD CBC WITH DIFF Collected: 01/07/2024 2:56 PM Status: F Source: [facility] TYPE CODE TESTS RESULT OUT OF RANGE REFERENCE UNITS LAB WBC([facility]) WBC Count 9.9 3.5-11.3 k/uL LAB RBC([facility]) RBC Count 4.71 3.95-5.11 m/uL LAB HGB(LOINC) [...] Performed By: #### LIP, CDP, CP #### [facility] [address] [place] [address] Business Job Titles: Kye Jasso MD COMP METABOLIC PROF Collected: 01/07/20 24 2:56 PM Status: F Source: [facility] TYPE CODE TESTS RESULT OUT OF RANGE [...] recollection if clinically indicated. Performed By: #### WALTER JOSE, CP #### [facility] [address] [place] [address] [place] [address] Business Job Titles: Kye Jsaso MD LIPASE Collected: 4 2:56 PM Status: F Source: [facility] TYPE CODE TESTS RESULT OUT OF RANGE REFERENCE UNITS LAB LIP(LOINC) Lipase 144 High 13-60 U/L Performed By: #### LIP, CDP, CP #### [facility] [address] [place] [address] [place] [address] Business Job Titles: Kye Jasso MD LACTIC ACID Collected: 4 2:56 PM Status: F Source: [facility] TYPE CODE TESTS RESULT OUT OF RANGE REFERENCE UNITS LAB LAC(LOINC) Lactic Acid 1.3 0.5-2.2 mmol/L Performed By: #### LACTIC ## ## [facility] [address] [place] [address] Business Job Titles: Kye Jasso MD 1 HOUR TROP I, HIGH SENSITIVITY Collected: 12/08 6:32 AM Status: COMPLETED Source: [facility] TYPE CODE TESTS RESULT OUT OF RANGE REFERENCE UNITS LAB TNIHS1(LOINC) 1 HOUR TROP I, HIGH SENSITIVITY 2 <16 ng/L Performed By: #### 16036-5 # ### [facility] ([id number]) [address] [place] [address], [place] [address] CT ABDOMEN AND PELVIS WO CONT Observed: 12/29/2023 6:15 AM Status: COMPLETED Source: [facility] CT ABDOMEN AND PELVIS WO CON T [...] Collected: 12/29/2023 5:30 AM Status: COMPLETED Source: [facility] TYPE CODE TESTS RESULT OUT OF [...] X10E9/L Performed By: #### CBCA, BMP , 47097-8, LIVR, 20415-4, 44952-7, 5643-2, 3040-3 #### [facility] ([id number]) [address] [place] [address], [place] [address] BASIC METABOLIC PANL Collected: 12/29/2023 5:30 AM Status: COMPLETED Source: [facility] TYPE CODE TESTS RESULT OUT OF [...] coefficient. Performed By: #### CBCA, BMP , 50558-6, LIVR, 16541-6, 81128-1, 5643-2, 3040-3 #### [facility] ([id number]) [address] [place] [address] 42678 D DIMER Collected: 5:30 AM Status: COMPLETED Source: [facility] TYPE CODE TESTS RESULT OUT OF [...] if the patient's symptoms persist or worsen. [email or web address] Performed By: #### CBCA, BMP , 62491-0, LIVR, 92986-2, 44102-1, 5643-2, 3040-3 #### [facility] ([id number]) [address] [place] [address] 69905 LIVER PANEL Collected: 12/29/2023 5:30 AM S tatus: COMPLETED Source: [facility] TYPE CODE TESTS RESULT OUT OF [...] g/dL Performed By: #### CBCA, BMP , 89798-1, LIVR, 66875-2, 02868-5, 5643-2, 3040-3 #### [facility] ([id number]) [address] [place] [address] 31696 MAGNESIUM Collected: 12/29/2023 5:30 AM S tatus: COMPLETED Source: [facility] TYPE CODE TESTS RESULT OUT OF RANGE REFERENCE UNITS LAB MG(LOINC) MAGNESIUM 2.2 1.8-2.6 mg/dL Performed By: #### CBCA, BMP , 50906-8, LIVR, 34106-5, 20891-1, 5643-2, 3040-3 #### [facility] ([id number]) [address] [place] [address] 54468 TROPONIN I, HIGH SENSITIVITY Collected: 5:30 AM Status: COMPLETED Source: [facility] TYPE CODE TESTS RESULT OUT OF RANGE REFERENCE UNITS LAB TNIHS(LOINC) TROPONIN I, HIGH SENSITIVITY 2 <16 ng/L Performed By: #### CBCA, BMP , 63990-8, LIVR, 14823-2, 08347-2, 5643-2, 3040-3 #### [facility] ([id number]) [address] [place] [address] 45678 ETHANOL Collected: 12/29/2023 5:30 AM S tatus: COMPLETED Source: [facility] TYPE CODE TESTS RESULT OUT OF RANGE REFERENCE UNITS LAB ALCO(LOINC) ETHANOL <0.01 0.00-0.08 g/dL Result Comment: This report is intended for use in clinical monitoring or management of patients. Performed By: #### CBCA, BMP , 91824-2, LIVR, 01572-9, 30076-0, 5643-2, 3040-3 #### [facility] ([id number]) [address] [place] [address], [place] [address] LIPASE Collected: 12/29/2023 5:30 AM S tatus: COMPLETED Source: [facility] TYPE CODE TESTS RESULT OUT OF RANGE REFERENCE UNITS LAB LIPA(LOINC) LIPASE 55 High 17-40 U/L Performed By: #### CBCA, BMP , 49093-5, LIVR, 93494-5, 83293-5, 5643-2, 3040-3 #### [facility] ([id number]) [address] [place] [address], [place] [address] ALLERGIES DATE TYPE / CODE NAME / CODE REACTION SEVERITY SOURCE 10/28/2024 Drug Allergy/41 5771101(SN OMED CT) Penicillins/[id number] (RXNORM) Hives Unknown [facility] 10/28/2024 Drug Allergy/41 7213051(SN OMED CT) prochlorperazine/Q0742 48775(RXNORM) Hives Unknown [facility] 10/28/2024 Drug Allergy/41 5899793(SN OMED CT) haloperidol/[id number] (RXNORM) Hives Unknown [facility] 10/28/2024 Drug Allergy/41 4820886(SN OMED CT) morphine/P481361460(RX NORM) Hives Unknown [facility] 10/28/2024 Drug Allergy/41 7588037(SN OMED CT) ibuprofen/Q520761648(R XNORM) Difficulty Breathing Unknown [facility] 10/28/2024 Drug Allergy/41 1574790(SN OMED CT) fentanyl/N614643923(RX NORM) Hives Unknown [facility] 10/28/2024 Drug Allergy/41 0817677(SN OMED CT) tramadol/A945113098(RX NORM) Hives Unknown [facility] 10/28/2024 Drug Allergy/41 8796286(SN OMED CT) ketorolac/P963520068(R XNORM) Hives Unknown [facility] 03/18/2024 DRUG INGREDI/41 3734164(SN OMED CT) PROCHLORPERAZINE ANAPHYLAXIS [facility] 03/18/2024 DRUG INGREDI~NO N-CBORD/41 7796791(SN OMED CT) PROCHLORPERAZINE Anaphylaxis [facility] 09/12/2020 DRUG INGREDI/41 8746789(SN OMED CT) FENTANYL HIVES [facility] 09/12/2020 DRUG INGREDI~NO N-CBORD/41 1342990(SN OMED CT) FENTANYL Hives [facility] 06/12/2020 DRUG INGREDI~NO N-CBORD/41 8702056(SN OMED CT) KETOROLAC [facility] 08/23/2019 DRUG INGREDI/41 4698836(SN OMED CT) ENOXAPARIN ITCHING [facility] 08/23/2019 DRUG INGREDI/41 6828130(SN OMED CT) ENOXAPARIN Itching [facility] 08/23/2019 DRUG INGREDI~NO N-CBORD/41 4951709(SN OMED CT) ENOXAPARIN Itching~Rash [facility] 05/09/2019 DRUG INGREDI/41 3675186(SN OMED CT) MORPHINE [facility] 10/09/2017 DRUG INGREDI~NO N-CBORD/41 7757997(SN OMED CT) IBUPROFEN Anaphylaxis [facility] 10/09/2017 Drug Class~NON- CBORD/4195 89878(SNOM ED CT) PENICILLINS Anaphylaxis [facility] 10/09/2017 DRUG INGREDI~NO N-CBORD/41 [id number](SN OMED CT) HALOPERIDOL [facility] 10/09/2017 DRUG INGREDI~NO N-CBORD/41 9734923(SN OMED CT) MORPHINE [facility] 10/09/2017 DRUG INGREDI~NO N-CBORD/41 0689525(SN OMED CT) TRAMADOL [facility] 06/30/2016 DRUG INGREDI/41 9326767(SN OMED CT) METOCLOPRAMIDE OTHER: SEE C [facility] 06/30/2016 DRUG INGREDI~NO N-CBORD/41 0777021(SN OMED CT) METOCLOPRAMIDE Anxiety [facility] 06/18/2016 DRUG INGREDI/41 6075025(SN OMED CT) HALOPERIDOL LACTATE OTHER: SEE [facility] 06/18/2016 DRUG INGREDI/41 8226871(SN OMED CT) TRAMADOL OTHER: SEE [facility] 08/22/2011 DRUG INGREDI/41 6734156(SN OMED CT) IBUPROFEN OTHER: SEE [facility] 08/22/2011 Drug Class/4195 78381(SNOM ED CT) PENICILLINS OTHER: SEE [facility] [id number] 06(SNOMED CT) Compazine D-3540 Moderate (Severity Modifier) (Qualifier Value) [facility] [id number] 06(SNOMED CT) fentaNYL D-3540 Moderate (Severity Modifier) (Qualifier Value) [facility] [id number] 06(SNOMED CT) ibuprofen M-28730~D-3540 Moderate (Severity Modifier) (Qualifier Value) [facility] [id number] 06(SNOMED CT) haloperidol D-3540~M-18820 Severe (Severity Modifier) (Qualifier Value) [facility] [id number] 06(SNOMED CT) penicillin Swelling Severe (Severity Modifier) (Qualifier Value) [facility] [id number] 06(SNOMED CT) morphine M-48467~EE49132- 2 Severe (Severity Modifier) (Qualifier Value) [facility] [id number] 06(SNOMED CT) Toradol Swelling Moderate (Severity Modifier) (Qualifier Value) [facility] [id number] 06(SNOMED CT) traMADol [id number]~M-0257 0 Severe (Severity Modifier) (Qualifier Value) [facility] ENCOUNTERS ADMIT/DISCHARGE ACCOUNT NUMBER ADMITTING ENCOUNTER CLASS LOCATION SOURCE 11/25/2024 [id number] Geno Martin Inpatient Encounter [facility]: [id number]: 01 [facility] 11/25/2024 [id number] Drew Martinisten Inpatient Encounter [facility]: [id number]: 01 [facility] 11/25/2024/ 025 [id number] Geno Martin Inpatient Encounter [facility]: [id number]: 01 [facility] 11/24/2024 [id number] Emergency FTMCBuilding: EDRoom: ED-13Bed: CD:[id number] [facility] 11/17/2024 [id number] [facility] 11/06/2024/ 025 [id number] RAJI GILLIAM Inpatient Encounter Building:[facility] oom: 0319Bed: 01 [facility] 11/02/2024/ 025 [id number] [facility] 10/28/2024/ 025 [id number] [facility]/ 025 [id number] Emergency Building:[facility]_ EDRoom: 7Bed: [address] [place] [address] 10/24/2024/ 025 [id number] Emergency [facility]MCBuilding: EDRoom: ED-14Bed: CD:[id number] [facility] 10/24/2024 [id number] Emergency [facility]MCBuilding: EDRoom: ED-14Bed: CD:[id number] [facility] 10/19/2024/ 025 [id number] Nicole Posadas [facility]/ 025 [id number] Emergency Building:PFM_ EDRoom: 1Bed: 01 [facility] 10/09/2024 [id number] Emergency FTMCBuilding: EDRoom: ED-15 [facility] 10/09/2024/ 025 [id number] Emergency [facility]MCBuilding: EDRoom: ED-15 [facility] 10/03/2024 [id number] Emergency [facility]MCBuilding: EDRoom: [facility] 10/03/2024 [id number] Emergency [facility]MCBuilding: EDRoom: ED-06Bed: CD:[id number] [facility] 10/03/2024/ 025 [id number] Emergency [facility]MCBuilding: EDRoom: ED-06Bed: CD:[id number] [facility] 09/27/2024/ 025 [id number] Emergency Building:TEDR oom: 05Bed: 05 [facility] 09/20/2024/ 025 [id number] Emergency Building:TEDR oom: 05Bed: 05 [facility] 09/18/2024/ 025 [id number] Emergency Building:PFM_ EDRoom: 2Bed: 02 [facility] 09/05/2024/ 025 [id number] Emergency Building:PFM_ EDRoom: 10Bed: 10 [facility] 08/10/2024/ 025 [id number] Emergency Building:PFM_ EDRoom: 2Bed: 02 [facility] 08/08/2024/ 025 [id number] Emergency Building:TEDR oom: 05Bed: [address] [place] [address] 07/20/2024/ 025 [id number] Emergency Building:PFM_ EDRoom: 9Bed: 09 [facility] 06/27/2024/ 025 [id number] Emergency Building:PFM_ EDRoom: 10Bed: 10 [facility] 06/15/2024/ 025 [id number] Emergency Building:PFM_ EDRoom: 1Bed: 01 [facility] 05/31/2024/ 025 [id number] Emergency Building:PFM_ EDRoom: 8Bed: 08 [facility] 04/07/2024/ 025 [id number] Emergency Building:TEDR oom: 10Bed: 10 [facility] 03/18/2024/ 025 [id number] Emergency Building:PFM_ EDRoom: 3Bed: 03 [facility] 01/19/2024 [id number] [facility] 01/14/2024/ 024 [id number] Emergency Building:PFM_ EDRoom: 3Bed: 03 [facility] 01/07/2024/ 024 [id number] Emergency Building:TEDR oom: 11Bed: 11 [facility] 12/29/2023/ 024 [id number] Emergency Building:PFM_ EDRoom: 2Bed: 02 [facility] 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 [employer] 11/25/2024 CHIOMA SOTO: E GAM[address] STTel: ~[phone] (HP) Primary Insurance:CARESOURCEPol icy Number: [id number] Date:0546-42-21PW[address] [address]MI: CHIOMA FITZPATRICK [facility] 11/25/2024 CHIOMA SOTO: E GAMING STTel: ~[phone] (HP) Primary Insurance:CARESOURCEPol icy Number: [id number] Date:[id number] [address]AF: CHIOMA FITZPATRICK [facility] 11/25/2024 CHIOMA SOTO: E GAMING STTel: ~[phone] (HP) Primary Insurance:CARESOURCEPol icy Number: [id number] Date:5514-31-33XA [address] [address]WQ: CHIOMA AMARI [facility] 11/24/2024 CHIOMA IBARRAB: E GAMING STTel: ~[phone] (HP) Primary Insurance:CARESOURCEPol icy Number: [id number] Date:9998-15-86FV [address] [address]QJ: CHIOMA FITZPATRICK [facility] 11/17/2024 Primary Insurance:[facility] [place] MEDICAIDPolicy Number: [id number] Date:2467-35-26Zhhw Name:Vickie BEDOLLA LENNOX: [id number] [place] [address] [facility] 11/06/2024 CHIOMA SOTO: [place] [address] Primary Insurance:CARESOURCEPol icy Number: [id number] Date:4859-00-52FU [address] [address]YS: CHIOMA SOTO: [id number] [place], [place] [address]Oeh: (HP) () [facility] 11/02/2024 Primary Insurance:[employer] MEDICAIDPolicy Number: [id number] Date:3901-52-05Gmqy Name:Vickie BEDOLLA LENNOX: [id number] [place] [address] [facility] 10/28/2024 [place]oma [place] [address]Qqw: (HP) Primary Insurance:Caresource MedicaidPolicy Number: [id number] Date:5964-05-42JypMichael [place] [place] [address]WW: Chioma Soto: [id number] [place] [address]Dwj: (HP) [facility] 10/28/2024 Secondary Insurance:Self PayPolicy Number: Effective Date:2024-10-28 NOT GIVENUNK [facility] 10/26/2024 CHIOMA SOTO: [place] [address]Ozq: (HP) Primary Insurance:[employer] MEDICAID HMOPolicy Number: [id number] Date:2022-04-09 CHIOMA SOTO: [id number] [place] [address] [facility] 10/24/2024 CHIOMA SOTO: E GAM[address] STTel: ~[phone] (HP) Primary Insurance:CARESOURCEPol icy Number: [id number] Date:2875-77-01EM [address] [address]HL: CHIOMA FITZPATRICK [facility] 10/24/2024 CHIOMA SOTO: [id number] E [address] STTel: ~[phone] (HP) Primary Insurance:CARESOURCEPol icy Number: [id number] Date:7124-26-82GD [address] [address]DW: CHIOMA FITZPATRICK [facility] 10/19/2024 [address] [place] [address]Yny: (HP) Primary Insurance:[employer] MedicaidPolicy Number: [id number] Date:2257-20-52DqsMichael [address] [place] [address]RN: Chioma Soto: [id number] [place] [address]Poe: (HP) [facility] 10/19/2024 Secondary Insurance:Self PayPolicy Number: Effective Date:2024-10-19 NOT GIVENUNK [facility] 10/11/2024 CHIOMA SOTO: [place] [address]Zma: (HP) Primary Insurance:[employer] MEDICAID HMOPolicy Number: [id number] Date:2022-04-09 CHIOMA SOTO: [id number] [place] [address] [facility] 10/09/2024 CHIOMA SOTO: E GAMING STTel: ~[phone] (HP) Primary Insurance:CARESOURCEPol icy Number: [id number] Date:1713-47-19KL [address] [address]TF: CHIOMA FITZPATRICK [facility] 10/09/2024 CHIOMA SOTO: E GAM[address] STTel: ~[phone] (HP) Primary Insurance:CARESOURCEPol icy Number: [id number] Date:0748-18-08VY [address] [address]ZL: CHIOMA FITZPATRICK [facility] 10/03/2024 CHIOMA SOTO: [id number] [address] STTel: ~~[phone] (HP) Primary Insurance:CARESOURCEPol icy Number: [id number] Date:4717-76-73KA [address] [address]CQ: CHIOMA FITZPATRICK [facility] 10/03/2024 CHIOMA SOTO: [id number] E GAM[address] STTel: ~~[phone] 19 (HP) Primary Insurance:CARESOURCEPol icy Number: [id number] Date:6207-83-68NF [address] [address]LM: CHIOMA FITZPATRICK [facility] 10/03/2024 CHIOMA SOTO: E GAM[address] STTel: ~~4 19 (HP) Primary Insurance:CARESOURCEPol icy Number: [id number] Date:4374-84-46QY [address] [address]UJ: CHIOMA FITZPATRICK [facility] 09/27/2024 CHIOMA SOTO: [place] [address] Primary Insurance:CARESOURCEPol icy Number: [id number] Date:9473-25-01KH [address] [address]DM: CHIOMA SOTO: [id number] [place], [place] [address]Yom: (HP) (WP) [facility] 09/20/2024 CHIOMA SOTO: [place] [address] Primary Insurance:CARESOURCEPol icy Number: [id number] Date:6728-59-04GN [address] [address]WZ: CHIOMA SOTO: [id number] [place], [place] [address]Wld: (HP) (WP) [facility] 09/18/2024 CHIOMA SOTO: [place] [address]Dgy: (HP) Primary Insurance:[employer] MEDICAID HMOPolicy Number: [id number] Date:2022-04-09 CHIOMA SOTO: [id number] [place] [address] [facility] 09/05/2024 CHIOMA SOTO: [place] [address]Vms: (HP) Primary Insurance:[employer] MEDICAID HMOPolicy Number: [id number] Date:2022-04-09 CHIOMA SOTO: [id number] [place] [address] [facility] 08/10/2024 CHIOMA SOTO: [place] [address]Woa: (HP) Primary Insurance:[employer] MEDICAID HMOPolicy Number: [id number] Date:2022-04-09 CHIOMA SOTO: [id number] [place] [address] [facility] 08/08/2024 CHIOMA SOTO: [place] [address] Primary Insurance:[facility] Number: [id number] Date:2023-06-08[address] [place] [address]FY: CHIOMA SOTO: [id number] [place], [place] [address]Qxj: (HP) () [facility] 08/08/2024 Secondary Insurance:[facility] Number: [id number] Date:2396-78-01[address] [address]AH: CHIOMA SOTO: [id number] [place], [place] [address]Ywv: (HP) () [facility] 07/20/2024 CHIOMA SOTO: [place] [address]Mdr: (HP) Primary Insurance:[employer] MEDICAID HMOPolicy Number: [id number] Date:2022-04-09 CHIOMA SOTO: [id number] [place] [address] [facility] 06/27/2024 CHIOMA SOTO: [place] [address]Nlo: (HP) Primary Insurance:[employer] MEDICAID HMOPolicy Number: [id number] Date:2022-04-09 CHIOMA SOTO: [id number] [place] [address] [facility] 06/15/2024 CHIOMA SOTO: [place] [address]Cxb: (HP) Primary Insurance:[employer] MEDICAID HMOPolicy Number: [id number] Date:2022-04-09 CHIOMA SOTO: [id number] [place] [address] [facility] 05/31/2024 CHIOMA SOTO: [place] [address]Tun: (HP) Primary Insurance:[employer] MEDICAID HMOPolicy Number: [id number] Date:2022-04-09 CHIOMA SOTO: [id number] [place] [address] [facility] 04/07/2024 CHIOMA SOTO: [address] [place], [place] [address]Zad: (HP) [facility] Number: [id number] Date:2023-06-08[address] [place] [address]LX: CHIOMA SOTO: [id number] [place], [place] [address]Sog: (HP) (WP) [facility] 04/07/2024 Secondary Insurance:[facility]ESOWellSpan [facility] Hospitaly Number: [id number] Date:6497-13-08SI[address] [address]ES: CHIOMA SOTO: [id number] [place] [place], [place] [address]Owt: (HP) (WP) [facility] 03/18/2024 CHIOMA SOTO: [place] [address]Hwx: (HP) [facility] Number: [id number] Date:2023-06-08 CHIOMA SOTO: [id number] [place] [address] [facility] 03/18/2024 Secondary Insurance:[employer] MEDICAID HMOPolicy Number: [id number] Date:2022-04-09 CHIOMA SOTO: [id number] [place] [address] [facility] 01/19/2024 CHIOMA HIGH: [place] [address]Tvp: ~([phone] (HP) Primary Insurance:CARESOURCEPol icy Number: [id number] Date:2651-85-43Nwlf Name:ERICK HIGH: [id number] [place], [place] [address]Nna: (HP) [facility] 01/14/2024 CHIOMA KATALINA: [place] [address]Tzf: (HP) [facility] Insurance:[facility]Policy Number: [id number] Date:2023-06-08 CHIOMA KATALINA: [id number] [place] [place], [place] [address]Wmq: (HP) [facility] 01/14/2024 Secondary Insurance:[employer] MEDICAID HMOPolicy Number: [id number] Date:2022-04-09 CHIOMA KATALINA: [id number] [place] [address]Sxn: (HP) [facility] 01/07/2024 CHIOMA SOTO: [place], [place] [address]Ehh: (HP) [facility]Policy Number: [id number] Date:2023-06-08PClaudia MARTINEZ [address] [place] [address]IJ: CHIOMA SOTO: [id number] [place], [place] [address]Tzs: (HP) () [facility] 01/07/2024 Secondary Insurance:CARESOURCEPol icy Number: [id number] Date:9419-87-40AN JUAN [address] [place] [address]ES: CHIOMA SOTO: [id number] [place], [place] [address]Dky: () [facility] 12/29/2023 CHIOMA SOTO: [place] [address]Ars: (HP) Primary Insurance:[employer] MEDICAID HMOPolicy Number: [id number] Date:2022-04-09 CHIOMA SOTO: [id number] [place] [address]Crg: (HP) [facility]
[2024-12-04 19:22] VITALS: BP 128/75; PULSE 97; TEMP 36.9; O2SAT 98; BMI 21.9
--- NOTE | 2024-12-04 19:37 | ED.GENADUL1 ---
Documented by User: [email or web address] Santos 12/05/24 20:16 HPI HPI - General Adult General Chief complaint: Abdominal Pain Stated complaint: NAUSEA Abdominal Pain Time Seen by Provider: 12/04/24 19:19 Source: patient Mode of arrival: walk-in Limitations: no limitations History of Present Illness HPI narrative: Patient is a 54-year-old female with a past medical history of chronic pancreatitis that presents to the emergency department with complaints of epigastric abdominal pain that started about or Thursday and progressively got worse bringing her here today. She started getting nauseous and has vomited 3 times today. She denies any diarrhea and has had a bowel movement this morning. She was last here on 10/13/2024 and 11/02/2024 for the same complaints. Her amylase/lipase were not elevated at that time and patient was discharged home after a few doses of pain medication. Since her last ER visit she has started on amitriptyline and enzymes that she feels is not helping with her chronic pain control. She did get admitted to [facility] last week and was just discharged on Thursday. She states she was there for pain control and her lab levels were elevated and would not go down. Her GI provider was contacted and she does have a virtual visit with her tomorrow. She did have a pain block procedure on November 17 that she states has not helped. She denies any fevers, night sweats, chills, chest pain, shortness of breath, or back pain. She denies any recent trauma, falls, new surgery. Related Data Home Medications ?Medication ?Instructions ?Recorded ?Confirmed dicyclomine 10 mg capsule 10 mg PO BID 09/13/24 10/13/24 famotidine 20 mg tablet 20 mg PO Q12H 09/13/24 10/13/24 ondansetron 4 mg disintegrating 4 mg PO Q8H PRN nausea and vomiting 09/13/24 10/13/24 tablet Allergies Allergy/AdvReac Type Severity Reaction Status Date / Time haloperidol (From Haldol) Allergy Intermediate Hives Verified 12/04/24 19:21 ibuprofen (From Motrin) Allergy Intermediate Hives Verified 12/04/24 19:21 tramadol Allergy Intermediate Hives Verified 12/04/24 19:21 Penicillins Allergy Unknown Anaphylaxis Verified 12/04/24 19:21 morphine Allergy swells Verified 12/04/24 19:21 prochlorperazine (From Allergy Hives Verified 12/04/24 19:21 Compazine) ketorolac (From Toradol) AdvReac Severe Hives Verified 12/04/24 19:21 fentanyl AdvReac Intermediate Hives Verified 12/04/24 19:21 Opioid HPI Opioid Management Most Recent Opioid Data: Last Pain Scale 9 12/04/24, 19:22 Review of Systems ROS Status of ROS 10 or more systems reviewed and unremarkable except as noted in history and below PFSH PFS Medical History (Updated 12/04/24 @ 22:12 by María Johnson MD) COPD (chronic obstructive pulmonary disease) ?J44.9 - Chronic obstructive pulmonary disease, unspecified (ICD-10) Chronic pancreatitis ?K86.1 - Other chronic pancreatitis (ICD-10) Smoker ?F17.200 - Nicotine dependence, unspecified, uncomplicated (ICD-10) History of gastrostomy tube placement Surgical History (Updated 04/03/23 @ 12:10 by Marni Farley) Hx of esophagogastroduodenoscopy ?Z98.890 - Other specified postprocedural states (ICD-10) H/O colonoscopy ?Z98.890 - Other specified postprocedural states (ICD-10) Hx of cholecystectomy ?Z90.49 - Acquired absence of other specified parts of digestive tract (ICD-10) H/O: hysterectomy ?Z90.710 - Acquired absence of both cervix and uterus (ICD-10) Social History (Updated 04/03/23 @ 12:08 by Marni Farley) Smoking status: Current every day smoker Non-prescribed substance use: denies use Highest level of school completed/degree received: high school graduate Little interest or pleasure in doing things: not at all Feeling down, depressed, or hopeless: not at all Exam Narrative Exam Narrative: General: No distress, age-appropriate Skin: Warm, dry, no pallor. No rash. Head: Normocephalic, atraumatic. Neck: Supple, non-tender. Eye: Pupils are equal, round and EOMI. No scleral icterus. Ears, Nose, Mouth, and Throat: No nasal mucosal hypertrophy. Oral mucosa is moist, no posterior oropharynx erythema, uvula is mid-line Cardiovascular: Regular Rate and Rhythm without murmur, gallop or rub. Respiratory: No accessory muscle use or respiratory distress. Lungs are clear to auscultation, no wheezing, rales or rhonchi Chest Wall: no tenderness Back: No midline thoracic or lumbar vertebral tenderness. Musculoskeletal: Full ROM of all extremities, no calf or popliteal tenderness GI: Abdomen is soft, non-distended, epigastric tenderness to palpation. No masses appreciated. No rebound, guarding, or rigidity noted. Neurological: A&O x4. No cranial nerve dysfunction observed. No truncal ataxia. Moves all extremities. Sensation intact. Psychiatric: Cooperative and interactive. Normal mood and affect. Constitutional Vital Signs, click to edit/add: Last Vital Signs Temp 98.4 F 12/04/24 19:22 Pulse 97 H 12/04/24 19:22 BP 128/75 12/04/24 19:22 Pulse Ox 98 12/04/24 19:22 O2 Del Method Room Air 12/04/24 19:22 Documenting provider has reviewed patient's vital signs: yes Course Vital Signs Vital signs: Vital Signs Temperature 98.4 F 12/04/24 19:22 Pulse Rate 97 H 12/04/24 19:22 Blood Pressure 128/75 12/04/24 19:22 Pulse Oximetry 98 12/04/24 19:22 Oxygen Delivery Method Room Air 12/04/24 19:22 Temperature 98.4 F 12/04/24 19:22 Pulse Rate 97 H 12/04/24 19:22 Blood Pressure 128/75 12/04/24 19:22 Pulse Oximetry 98 12/04/24 19:22 Oxygen Delivery Method Room Air 12/04/24 19:22 Medical Decision Making MDM Narrative Medical decision making narrative: 54-year-old female presented to the emergency department with complaints of a flareup in her chronic pancreatitis that started about 3 days ago and has caused her to be nauseous and vomit 3 times today. Patient was last seen here in the ED 11/02/2024 where labs were largely within normal limits and pain was controlled with a few doses of Dilaudid. Patient follows with GI at [facility] and has started amitriptyline and enzymes in the last month that she states is not helping. She did have a pain block on 11/17/2024 that she also states did not help. She was admitted to [facility] the other week for pain control and elevated labs, she was just discharged Thursday11/29/24. OARRs reviewed and patient was prescribed and filled a prescription for [place] 5 mg. When I obtained her history she did deny being prescribed pain medicine medication at discharge from [facility]. She does have a virtual GI visit scheduled for tomorrow. On arrival she does appear uncomfortable and has a hard time sitting still on the ED cart, vitals are stable. She states she vomited in the trash can and does have an emesis bag. Patient is afebrile. Vitals are hemodynamically stable. IV placed. 1 L normal saline started. CBC, CMP ordered. 1 mg Dilaudid and Zofran 4 mg given. Labs: CBC: WBC 12.2, no left shift, patient afebrile, possibly reactive to vomiting CMP: Alk phos 164, mildly higher than baseline, but usually elevated Amylase: 71 Lipase: 49 Patient updated with results and does appear more comfortable. IVF going slowly as she has a 24-gauge IV. Patient states she is still nauseous. 12.5 mg of Phenergan given. Records from [facility] were obtained and lipase was elevated to 303 on 11/24 that did trend down to 102 on 11/28, the day prior to discharge. At this time, 2200 patient was signed out to Dr Johnson. Plan is to discharge home and she does have an appt with her GI provider with [facility] tomorrow. This patient was seen and evaluated in conjunction with the physician trading assistant. After IV fluids, Dilaudid and Zofran she had ongoing nausea and was medicated with Phenergan. On reevaluation she is feeling better. She states that she has an appointment at [facility] tomorrow for further evaluation and treatment. She will be given a copy of her labs for their review. I reviewed her labs. Her labs are stable at this time without any change in her kidney function with elevated alkaline phosphatase which is consistent with her typical findings. I did not feel that repeat CT scanning was indicated at this time. She remained stable for discharge. Differential Diagnosis Differential Diagnosis: Chronic pancreatitis Lab Data Labs: Lab Results 12/04/24 Range/Units 20:31 WBC 12.2 H (4.0-11.0) 10^3/uL RBC 4.07 L (4.20-5.40) 10^6/uL Hgb 13.5 (12.0-16.0) g/dL Hct 39.5 (36.0-48.0) % MCV 97.1 (81.0-99.0) fL MCH 33.2 (26.7-34.0) pg MCHC 34.2 (29.9-35.2) g/dL RDW 12.1 (11.0-15.0) % Plt Count 243 (150-450) 10^3/uL MPV 9.6 (9.5-13.5) fL Neut % (Auto) 74.2 (43.0-75.0) % Lymph % (Auto) 15.0 L (20.5-60.0) % Ponce % (Auto) 10.1 (1.7-12.0) % Eos % (Auto) 0.2 L (0.9-7.0) % Baso % (Auto) 0.3 (0.2-2.0) % Neut # (Auto) 9.0 H (1.4-6.5) 10^3/uL Lymph # (Auto) 1.8 (1.2-3.8) 10^3/uL Ponce # (Auto) 1.2 H (0.3-0.8) 10^3/uL Eos # (Auto) 0.0 (0.0-0.7) 10^3/uL Baso # (Auto) 0.0 (0.0-0.1) 10^3/uL Abs Immat Gran (auto) 0.03 (0.00-0.03) 10^3/uL Imm/Tot Granulo (auto) 0.2 (0.0-0.5) % Sodium 141 (136-145) mmol/L Potassium 3.7 (3.5-5.1) mmol/L Chloride 102 (98-107) mmol/L Carbon Dioxide 27.3 (21.0-32.0) mmol/L Anion Gap 15.4 BUN 8.0 (7.0-18.0) mg/dL Creatinine 0.88 (0.55-1.02) mg/dL Est GFR ( Amer) >60 (>=60 mL/min/1.73m^2) Est GFR (Non-Af Amer) >60 (>=60 mL/min/1.73m^2) BUN/Creatinine Ratio 9.1 Glucose 113 H (74-106) mg/dL Calcium 10.2 H (8.5-10.1) mg/dL Total Bilirubin 0.2 (0.2-1.0) mg/dL Direct Bilirubin <0.1 (0.0-0.2) mg/dL AST 17 (15-37) U/L ALT 23 (14-59) U/L Alkaline Phosphatase 164 H (46-116) U/L Total Protein 7.9 (6.4-8.2) g/dL Albumin 3.6 (3.4-5.0) g/dL Globulin 4.3 g/dL Albumin/Globulin Ratio 0.8 Amylase 71 (25-115) U/L Lipase 49.0 (16.0-77.0) U/L Discharge Plan Discharge Chief Complaint: Abdominal Pain Clinical Impression: Chronic abdominal pain Patient Disposition: Home, Self-Care Prescriptions / Home Meds: No Action famotidine 20 mg tablet 20 mg PO Q12H ondansetron 4 mg tablet,disintegrating 4 mg PO Q8H PRN (Reason: nausea and vomiting) dicyclomine 10 mg capsule 10 mg PO BID Print Language: Haitian Instructions: Abdominal Pain (ED) Referrals: [facility] [Primary Care Provider, Unknown] - 1 week Discharge Date/Time: 12/04/24 22:44 Documented by User: María Johnson MD 12/05/24 22:52 HPI HPI - General Adult General Chief complaint: Abdominal Pain Stated complaint: NAUSEA Abdominal Pain Time Seen by Provider: 12/04/24 19:19 Related Data Home Medications ?Medication ?Instructions ?Recorded ?Confirmed dicyclomine 10 mg capsule 10 mg PO BID 09/13/24 10/13/24 famotidine 20 mg tablet 20 mg PO Q12H 09/13/24 10/13/24 ondansetron 4 mg disintegrating 4 mg PO Q8H PRN nausea and vomiting 09/13/24 10/13/24 tablet Allergies Allergy/AdvReac Type Severity Reaction Status Date / Time haloperidol (From Haldol) Allergy Intermediate Hives Verified 12/04/24 19:21 ibuprofen (From Motrin) Allergy Intermediate Hives Verified 12/04/24 19:21 tramadol Allergy Intermediate Hives Verified 12/04/24 19:21 Penicillins Allergy Unknown Anaphylaxis Verified 12/04/24 19:21 morphine Allergy swells Verified 12/04/24 19:21 prochlorperazine (From Allergy Hives Verified 12/04/24 19:21 Compazine) ketorolac (From Toradol) AdvReac Severe Hives Verified 12/04/24 19:21 fentanyl AdvReac Intermediate Hives Verified 12/04/24 19:21 Opioid HPI Opioid Management Most Recent Opioid Data: Last Pain Scale 9 12/04/24, 19:22 [facility] History (Updated 12/04/24 @ 22:12 by María Johnson MD) COPD (chronic obstructive pulmonary disease) ?J44.9 - Chronic obstructive pulmonary disease, unspecified (ICD-10) Chronic pancreatitis ?K86.1 - Other chronic pancreatitis (ICD-10) Smoker ?F17.200 - Nicotine dependence, unspecified, uncomplicated (ICD-10) History of gastrostomy tube placement Surgical History (Updated 04/03/23 @ 12:10 by Marni Farley) Hx of esophagogastroduodenoscopy ?Z98.890 - Other specified postprocedural states (ICD-10) H/O colonoscopy ?Z98.890 - Other specified postprocedural states (ICD-10) Hx of cholecystectomy ?Z90.49 - Acquired absence of other specified parts of digestive tract (ICD-10) H/O: hysterectomy ?Z90.710 - Acquired absence of both cervix and uterus (ICD-10) Social History (Updated 04/03/23 @ 12:08 by Marni Farley) Smoking status: Current every day smoker Non-prescribed substance use: denies use Highest level of school completed/degree received: high school graduate Little interest or pleasure in doing things: not at all Feeling down, depressed, or hopeless: not at all Exam Constitutional Vital Signs, click to edit/add: Last Vital Signs Temp 98.4 F 12/04/24 19:22 Pulse 97 H 12/04/24 19:22 BP 128/75 12/04/24 19:22 Pulse Ox 98 12/04/24 19:22 O2 Del Method Room Air 12/04/24 19:22 Course Vital Signs Vital signs: Vital Signs Temperature 98.4 F 12/04/24 19:22 Pulse Rate 97 H 12/04/24 19:22 Blood Pressure 128/75 12/04/24 19:22 Pulse Oximetry 98 12/04/24 19:22 Oxygen Delivery Method Room Air 12/04/24 19:22 Temperature 98.4 F 12/04/24 19:22 Pulse Rate 97 H 12/04/24 19:22 Blood Pressure 128/75 12/04/24 19:22 Pulse Oximetry 98 12/04/24 19:22 Oxygen Delivery Method Room Air 12/04/24 19:22 Medical Decision Making MDM Narrative Medical decision making narrative: 54-year-old female presented to the emergency department with complaints of a flareup in her chronic pancreatitis that started about 3 days ago and has caused her to be nauseous and vomit 3 times today. Patient was last seen here in the ED 11/02/2024 where labs were largely within normal limits and pain was controlled with a few doses of Dilaudid. Patient follows with GI at [facility] and has started amitriptyline and enzymes in the last month that she states is not helping. She did have a pain block on 11/17/2024 that she also states did not help. She was admitted to [facility] the other week for pain control and elevated labs, she was just discharged Thursday11/29/24. OARRs reviewed and patient was prescribed and filled a prescription for [place] 5 mg. When I obtained her history she did deny being prescribed pain medicine medication at discharge from [facility]. She does have a virtual GI visit scheduled for tomorrow. On arrival she does appear uncomfortable and has a hard time sitting still on the ED cart, vitals are stable. She states she vomited in the trash can and does have an emesis bag. Patient is afebrile. Vitals are hemodynamically stable. IV placed. 1 L normal saline started. CBC, CMP ordered. 1 mg Dilaudid and Zofran 4 mg given. Labs: CBC: WBC 12.2, no left shift, patient afebrile, possibly reactive to vomiting CMP: Alk phos 164, mildly higher than baseline, but usually elevated Amylase: 71 Lipase: 49 Patient updated with results and does appear more comfortable and sleepy. IVF going slowly as she has a 24-gauge IV. Patient states she is still nauseous. 12.5 mg of Phenergan given. Records from [facility] were obtained and lipase was elevated to 303 on 11/24 that did trend down to 102 on 11/28, the day prior to discharge. This patient was seen and evaluated in conjunction with the physician trading assistant. After IV fluids, Dilaudid and Zofran she had ongoing nausea and was medicated with Phenergan. On reevaluation she is feeling better. She states that she has an appointment at [facility] tomorrow for further evaluation and treatment. She will be given a copy of her labs for their review. I reviewed her labs. Her labs are stable at this time without any change in her kidney function with elevated alkaline phosphatase which is consistent with her typical findings. I did not feel that repeat CT scanning was indicated at this time. She remained stable for discharge. Lab Data Lab results reviewed: Yes I reviewed the patient's lab results Labs: Lab Results 12/04/24 Range/Units 20:31 WBC 12.2 H (4.0-11.0) 10^3/uL RBC 4.07 L (4.20-5.40) 10^6/uL Hgb 13.5 (12.0-16.0) g/dL Hct 39.5 (36.0-48.0) % MCV 97.1 (81.0-99.0) fL MCH 33.2 (26.7-34.0) pg MCHC 34.2 (29.9-35.2) g/dL RDW 12.1 (11.0-15.0) % Plt Count 243 (150-450) 10^3/uL MPV 9.6 (9.5-13.5) fL Neut % (Auto) 74.2 (43.0-75.0) % Lymph % (Auto) 15.0 L (20.5-60.0) % Ponce % (Auto) 10.1 (1.7-12.0) % Eos % (Auto) 0.2 L (0.9-7.0) % Baso % (Auto) 0.3 (0.2-2.0) % Neut # (Auto) 9.0 H (1.4-6.5) 10^3/uL Lymph # (Auto) 1.8 (1.2-3.8) 10^3/uL Ponce # (Auto) 1.2 H (0.3-0.8) 10^3/uL Eos # (Auto) 0.0 (0.0-0.7) 10^3/uL Baso # (Auto) 0.0 (0.0-0.1) 10^3/uL Abs Immat Gran (auto) 0.03 (0.00-0.03) 10^3/uL Imm/Tot Granulo (auto) 0.2 (0.0-0.5) % Sodium 141 (136-145) mmol/L Potassium 3.7 (3.5-5.1) mmol/L Chloride 102 (98-107) mmol/L Carbon Dioxide 27.3 (21.0-32.0) mmol/L Anion Gap 15.4 BUN 8.0 (7.0-18.0) mg/dL Creatinine 0.88 (0.55-1.02) mg/dL Est GFR ( Amer) >60 (>=60 mL/min/1.73m^2) Est GFR (Non-Af Amer) >60 (>=60 mL/min/1.73m^2) BUN/Creatinine Ratio 9.1 Glucose 113 H (74-106) mg/dL Calcium 10.2 H (8.5-10.1) mg/dL Total Bilirubin 0.2 (0.2-1.0) mg/dL Direct Bilirubin <0.1 (0.0-0.2) mg/dL AST 17 (15-37) U/L ALT 23 (14-59) U/L Alkaline Phosphatase 164 H (46-116) U/L Total Protein 7.9 (6.4-8.2) g/dL Albumin 3.6 (3.4-5.0) g/dL Globulin 4.3 g/dL Albumin/Globulin Ratio 0.8 Amylase 71 (25-115) U/L Lipase 49.0 (16.0-77.0) U/L Discharge Plan Discharge Chief Complaint: Abdominal Pain Clinical Impression: Chronic abdominal pain Patient Disposition: Home, Self-Care Prescriptions / Home Meds: No Action famotidine 20 mg tablet 20 mg PO Q12H ondansetron 4 mg tablet,disintegrating 4 mg PO Q8H PRN (Reason: nausea and vomiting) dicyclomine 10 mg capsule 10 mg PO BID Print Language: Haitian Instructions: Abdominal Pain (ED) Referrals: [facility] [Primary Care Provider, Unknown] - 1 week Discharge Date/Time: 12/04/24 22:44
[2024-12-04 20:36] LABS: Hematocrit 39.5 % (36.0-48.0); Hemoglobin 13.5 g/dL (12.0-16.0); Immature Granulocytes Abs Auto 0.03 10^3/uL (0.00-0.03); Immature Granulocytes Pct Auto 0.2 % (0.0-0.5); Lymphocytes Absolute Auto 1.8 10^3/uL (1.2-3.8); Mean Corpuscular HGB Conc 34.2 g/dL (29.9-35.2); Mean Corpuscular Hemoglobin 33.2 pg (26.7-34.0); Mean Corpuscular Volume 97.1 fL (81.0-99.0); Platelet Count 243 10^3/uL (150-450); Red Blood Count 4.07 10^6/uL (4.20-5.40); White Blood Count 12.2 10^3/uL (4.0-11.0)
[2024-12-04] MEDS: 0.9 % SODIUM CHLORIDE 1,000 ML 999 ML IV (20:40)
[2024-12-04] MEDS: HYDROMORPHONE HCL 1 MG/ML CARTRIDGE IVP (20:40)
[2024-12-04 20:52] LABS: Alanine Aminotransferase 23 U/L (14-59); Albumin Globulin Ratio 0.8; Albumin Level 3.6 g/dL (3.4-5.0); Alkaline Phosphatase 164 U/L (46-116); Anion Gap 15.4; Aspartate Amino Transferase 17 U/L (15-37); Blood Urea Nitrogen 8.0 mg/dL (7.0-18.0); Calcium 10.2 mg/dL (8.5-10.1); Carbon Dioxide 27.3 mmol/L (21.0-32.0); Chloride 102 mmol/L (98-107); Estimated GFR (African America >60 (>=60 mL/min/1.73m^2); Estimated GFR (Non-African Ame >60 (>=60 mL/min/1.73m^2); Globulin 4.3 g/dL; Glucose 113 mg/dL (74-106); Lipase 49.0 U/L (16.0-77.0); Potassium 3.7 mmol/L (3.5-5.1); Sodium 141 mmol/L (136-145); Total Protein 7.9 g/dL (6.4-8.2)
[2024-12-04 20:53] LABS: Amylase 71 U/L (25-115)
[2024-12-04] MEDS: PROMETHAZINE HCL 12.5 MG in 0.9 % SODIUM CHLORIDE 50 ML 202 MG IV (22:05)
== END 2024-12-04 22:44 | disposition home or self-care (01) ==
PROVIDERS: Physician Assistant; Emergency Provider Emergency Medicine
DX: R10.13 Epigastric pain (principal); G89.29 Other chronic pain; F17.200 Nicotine dependence, unspecified, uncomplicated
CPT/HCPCS: 36415; 80048; 80076; 81001; 82150; 83690; 85025; 96361; 96365; 96375; 99284; J1171; J2405; J2550

== ENCOUNTER 2024-12-16 21:58 | Emergency (ER) | payer OTHER, SELFPAY ==
--- OUTSIDE RECORDS SUMMARY | 2024-12-16 22:06 | XMS_ITS | CCD ---
Author Organization [facility] Care Team Providers Care Electric Deicer Assembler Name Role Phone AlbertaDarrickimani Unavailable ALBERTA ALEXANDER Unavailable Unavailable COPC KAYLEIGH, GENERIC Unavailable Unavailable COPC KAYLEIGH, GENERIC Unavailable Unavailable RUPINDER NEGROI Unavailable Unavailable LIDARRICKWA Unavailable Unavailable MARIO MENDES Unavailable Unavailable LIDARRICKWA Unavailable Unavailable SARAH WALTON Unavailable Unavaila ble ALEXANDER NICHOLS Unavailable Unavailable KEERTHI NGUYEN Unavailable Unavailable COPC KAYLEIGH, GENERIC Unavailable Unavailable KEERTHI NGUYEN Unavailable Unavailable LI DARRICKWA Unavailable Unavailable PHYSICIANS, [facility] Unavailable Unav ailable EUGENIA SHELTON Unavailable Unavailable [facility], [facility] Unavailable Unav ailable Unavailable Primary Care Provider Unavailflorida Nichols Alexander Primary Care Provider [phone] Unavailable Primary Care Provider UnavailMarya Guajardo Unavailable NON STAFF Primary Care Provider UnavailDO Keaton Thompson Emergency Provider SALMA Amor Emergency Provider [phone] SALMA Lopez Emergency Provider Woodrow ALEXANDER, Pineda Espinal Unavailable [facility]ly [facility], Other Primary Care Provi mathew NON STAFF Primary Care Provider MD Agustin Baker Emergency Provider DR TRI HANSON Consulting Unavailable ARIC CHAUDHARY Attending Unavailable ARIC CHAUDHARY Admitting Unavailable [facility] Primary Care Unavailable DEMIAN ., ARIC Consulting Unavailable AGUSTIN MADRIGAL Consulting Unavailable YANNI FRASER Attending Unavailable YANNI FRASER Admitting Unavailable [facility] Primary Care Unavailable HEBERT MCPHERSON Consulting Unavailable AMINATA, DR RAJEEV Chan Consulting Unavailable AMINATA, DR RAJEEV Chan Attending Unavailable AMINATA, DR RAJEEV Chan Admitting Unavailable [facility] Primary Care Unavailable JANNY ., ANKIT BOYKIN Consulting [facility] IGGY ., MONIK Attending Unavailable IGGY ., MONIK Admitting Unavailable GRECHNY ., ANKIT BOYKIN [facility] Unavailable ANNELIESE, NICK Consulting Unavailable DEMIAN ., ARIC Consulting Unavailable AGUSTIN HIGHTOWER Consulting Unavailable ROLAN EUCEDA Consulting Unavailable AMINATA, DR RAJEEV Chan Consulting Unavailable BRIANNA, DR SHARON Silveira Attending [facility] REINECK, DR SHARON Silveira Admitting [facility] Unavailable BRIANNA, DR SHARON Silveira Consulting [facility] HANS ., NAT Consulting Unavailable HANS ., NAT Consulting Unavailable PAY ., DR MACEDO Attending Unavailable PAY ., DR MACEDO Admitting Unavailable [facility] Primary Care Unavailable ANNELIESE, NICK Consulting Unavailable ANNELIESE, NICK Attending Unavailable ANNELIESE, NICK Admitting Unavailable [facility] Primary Care Unavailable MILADIS BARRERA Consulting Unavailable DEMIAN ., ARIC Attending Unavailable DEMIAN ., ARIC Admitting Unavailable DEMIAN ., ARIC Consulting Unavailable [facility] Primary Care Unavailable ION KRUSE Consulting Unavailable YANNI FRASER Attending Unavailable YANNI FRASER Admitting Unavailable JANNY ., ANKIT BOYKIN Consulting [facility] Unavailable LYNNE PERDOMO Consulting Unavailable DEMIAN ., ARIC Attending Unavailable DEMIAN ., ARIC Admitting Unavailable [facility] Primary Care Unavailable DEMIAN ., ARIC Consulting Unavailable DIAB ., ELENITA Consulting Unavailable DIAB ., ELENITA Attending Unavailable DIAB ., ELENITA Admitting Unavailable [facility] Primary Care Unavailable PAY ., DR MACEDO Consulting Unavailable PAY ., DR MACEDO Attending Unavailable PAY ., DR MACEDO Admitting Unavailable [facility] Primary Care Unavailable ANNELIESE, NICK Consulting Unavailable ANNELIESE, NICK Attending Unavailable ANNELIESE, NICK Admitting Unavailable [facility] Primary Care Unavailable AGUSTIN HIGHTOWER Unavailable DR RAJEEV KELLOGG Consulting Unavailable TANVIR Herron, DR GRANT Attending Unavailable TANVIR ., DR GRANT Admitting Unavailable [facility] Primary Care Unavailable TANVIR Herron, DR GRANT Consulting Unavailable NON STAFF Primary Care Provider Unavailabl e Saffle, [employer] Diomedes Serrano Emergency Provider NON STAFF Primary Care Provider Unavailabl e Saffle, HELPER CHICKEN FARMZach Serrano Emergency Provider DO Rivera Lopez Emergency Provider [phone] MD Darrel Kellogg Emergency Provider [phone] Pineda Troy MD Unavailable [phone] Formerly [facility], Other Primary Care Provi mathew Pineda Troy MD T Unavailable STEVE, SOMASHEKAR G Attending Unavailabl e [facility], OTHER Primary Care Un available SELF, SELF Referring Unavailable STEVE SOMASHEKAR G Attending Unavailabl e SETVE, SOMASHEKAR G Referring Unavailabl e [facility], OTHER Primary Care Un available STEVE, SOMASHEKAR G Referring Unavailabl e [facility], OTHER Primary Care Un available STEVE, SOMASHEKAR G Attending Unavailabl e Unavailable Primary Care Provider Unavailabl e [facility], [facility] Primary Care Provider Darrel Ferrer Attending Unavailable Ish Stokes Attending Unavailable Darrel Ferrer Attending Unavailable NON STAFF Primary Care Provider Unavailabl e Saffle Diomedes COSBY Emergency Provider Darrel Ferrer Attending Unavailable Ish Stokes Attending Unavailable Andrew Ponce PA-C Emergency Provider [phone] Diomedes Posadas Admitting Unavailable Diomedes Posadas Attending Unavailable NON STAFF Primary Care Unavailable Andrew Ponce Admitting Unavailable Andrew Ponce Attending Unavailable NON STAFF Primary Care Unavailable Cynthia Galindo Primary Care Provider TASHA ZAMORA Attending Unavailable TASHA ZAMORA Attending Unavailable PETER ESCALERA Attending Unavailable RAJI GILLIAM Admitting Unavailable RAJI GILLIAM Attending Unavailable Loki Ernandez Attending Unavailable Darrel Ferrer Attending Unavailable Geno Martin Attending Unavailable Geno Martin Admitting Unavailable Tate GUIDO Attending Unavailable Geno Martin Admitting Unavailable SERVICES, [facility] Unava ilable STEPHANIE MAHMOOD Attending Unavailable SERVICES, [facility] Unava ilable TABITHA NEWELL Attending Unavailable SERVICES, [facility] Unava ilable AGUSTIN MICHAEL Attending Unavailab le SERVICES, [facility] Unava ilable VIVIAN TRINH Attending Unavailable SERVICES, [facility] Unava ilable EMILIE JARVIS Attending Unavailable SERVICES, [facility] Unava ilable TABITHA NEWELL Attending Unavailable SERVICES, [facility] Unava ilable JYOTHI TRINH Attending Unavailable SERVICES, [facility] Unava ilable TABITHA NEWELL Attending Unavailable SERVICES, [facility] Unava ilable TABITHA NEWELL Attending Unavailable SERVICES, [facility] Unava ilable STEPHANIE MAHMOOD Attending Unavailable SERVICES, [facility] Unava ilable YANNI PARRA Attending Unavailable SERVICES, [facility] Unava ilable TABITHA NEWELL Attending Unavailable SERVICES, [facility] Unava ilable SHELBY PALMER Attending Unavailable LINDSEY WILLARD Attending Unavailable SITTEK STU Referring Unavailable ROHRBACH, CYNTHIA J Primary Care Unavailable LINDSEY WILLARD Referring Unavailable ROHRBACH, CYNTHIA J Primary Care Unavailable JOSSE ROMO Attending Unavailable LINDSEY WILLARD Attending Unavailable SELF Referring Unavailable ROHRBACH, CYNTHIA J Primary Care Unavailable ROHRBACH, CYNTHIA J Primary Care Unavailable ARACELI EUCEDA Admitting Unavailable MARIANNA JOHN Attending Unavailable Allergies Allergy Classification Reported Allergen(s) Allergy Type Date of Onset Reaction(s) Facility DOPamine Antagonists (1 source) Metoclopramide Drug Allergy 07-20-19 17 Anxiety [facility] Haloperidol (1 source) Haloperidol Drug Allergy 06-02-19 16 [facility] NSAIDs (1 source) Ibuprofen Drug Allergy 10-31-19 13 Hives, Swelling [facility] Opioid Agonists (2 sources) Morphine Drug Allergy 10-24-19 15 Hives [facility] Penicillins (antibiotic) (1 source) Penicillins Drug Allergy 10-31-19 13 Swelling [facility] Work Phone: (20 sources) haloperidol; Translations: [HALOPERIDOL] Propensity to adverse reactions to drug 06-02-19 16 [facility] (20 sources) ibuprofen; Translations: [IBUPROFEN] Propensity to adverse reactions to drug 08-22-19 12 Hives, Swelling, Anaphylaxis, Other (See Comments), Shortness Of Breath, Other: See Comments [facility] (6 sources) metoclopramide; Translations: [METOCLOPRAMIDE HCL] Propensity to adverse reactions to drug 07-01-19 17 [facility] (6 sources) penicillin g; Translations: [PENICILLIN G] Propensity to adverse reactions to drug 07-25-19 15 Anaphylaxis [facility] (20 sources) traMADol; Translations: [TRAMADOL] Propensity to adverse reactions to drug 07-25-19 15 Hives, Other: See Comments [facility] (20 sources) morphine; Translations: [MORPHINE] Drug Allergy 07-16-19 18 [facility] (17 sources) Enoxaparin; Translations: [ENOXAPARIN] Drug Allergy 08-23-19 20 Itching, Rash [place], [place] (13 sources) Haloperidol; Translations: [HALOPERIDOL LACTATE] Drug Allergy 06-19-19 17 Swelling, Other: See Comments [place], [place] (19 sources) Penicillins; Translations: [PENICILLINS] Propensity to adverse reactions to drug 08-22-19 12 Anaphylaxis, Swelling [place] (2 sources) Haloperidol; Translations: [Haldol] Drug Allergy 08-10-19 19 Unknown [facility] (20 sources) fentaNYL; Translations: [Fentanyl] Drug Allergy 09-13-[address] [facility] (15 sources) Ketorolac; Translations: [ketorolac] Drug Allergy 06-13-[address] [facility] (10 sources) Ketorolac Drug Allergy 12-17-19 22 Hives, Itching [facility] (19 sources) Metoclopramide; Translations: [METOCLOPRAMIDE] Drug Allergy 07-01-19 17 Anxiety, Other: See Comments [facility] (1 source) Ibuprofen Drug Allergy 01-09-20 13 [facility] (9 sources) Ketorolac; Translations: [Toradol] Drug Allergy [facility] (1 source) Morphine Drug Allergy 08-10-19 19 [facility] (1 source) Penicillins Drug allergy (disorder) 01-09-20 13 [facility] (1 source) traMADol Drug Allergy 01-09-20 13 [facility] (3 sources) Ketorolac trometamol Propensity to adverse reactions to drug 12-17-19 22 Hives, Itching [facility] (2 sources) Penicillins Propensity to adverse reactions to drug 10-31-19 13 Swelling [facility] Work Phone: (11 sources) Penicillins Propensity to adverse reactions to drug 10-10-19 [address] [facility] [employer] [facility] (11 sources) Prochlorperazine; Translations: [PROCHLORPERAZINE] Drug Allergy 03-18-19 25 Hives, Other (See Comments), Anaphylaxis [facility] (8 sources) Penicillin; Translations: [penicillin] Drug Allergy [facility] (7 sources) Prochlorperazine; Translations: [Compazine] Drug Allergy [facility] (1 source) Haloperidol Drug Allergy 10-29-19 25 [facility] (1 source) Ibuprofen Drug Allergy 10-29-19 25 [facility] (1 source) Morphine Drug Allergy 10-29-19 25 [facility] (1 source) Penicillins Drug allergy (disorder) 10-29-19 25 [facility] (1 source) Prochlorperazine Drug Allergy 10-29-19 25 [facility] (1 source) traMADol Drug Allergy 10-29-19 25 [facility] (3 sources) Penicillins Drug Allergy 08-22-19 12 Other: See Comments [facility] Medications Current Medications Medication Drug Class(es) Dates Sig (Normalized) Sig (Original) Acetaminophen (2 sources) Start: 11-06-2024 acetaminophen (TYLENOL) tablet 650 mg Start: 08-23-2019 acetaminophen (TYLENOL) tablet 650 mg acetaminophen 325 mg / HYDROcodone bitartrate 5 mg oral tablet (20 sources) Opioid Agonist Start: 10-28-2024 take 1 tablet by mouth every four to six hours as needed for pain Start: 10-19-2024 take 1 tablet by kayleigh th three times daily as needed for [...] PO Q6H as needed for pain 10 3 April 19, 2020 May 31, 2020 3:51pm amitriptyline hydrochloride 25 mg oral tablet (20 sources) Tricyclic Antidepressant Start: 11-02-2024 End: 10-28-2025 take 1 tablet by mouth once daily at bedtime amitriptyline (ELAVIL) 25 mg tablet Take 1 tablet by mouth daily at bedtime. 90 tablet 3 11/02/2024 10/28/2025 Active Start: 08-26-2021 End: 10-04-2021 take 1 tablet [...] 30 tablet 11 12/01/2019 05/11/2023 Discontinued amylase 182545 unt / lipase 87726 unt / protease 28882 unt delayed release oral capsule (20 sources) Start: 11-02-2024 lipase-proteas e-amylase (CREON) 24,000-76,000 -120,000 unit delayed release capsule Indications: Chronic pancreatitis, unspecified pancreatitis type (HCC) , Epigastric pain , Loose stools , Exocrine pancreatic insufficiency (HCC) Take 2 caps by mouth 3 times daily with meals and 1 cap with each snack. Take 1st cap before meal starts and the 2nd cap intermediate through. Max of 10 capsules per day. 300 capsule 3 11/02/2024 Active Start: 12-23-2023 take 3 capsules by m outh twice daily at mealtime Pancreatic enzymes (Creon) 35577-68838-733153 units Cap DR Particles capsule Take 3 capsules by mouth 2 times daily with meals. 180 capsule 11 12/23/2023 Active Start: 05-11-2023 take 3 capsules by m outh twice daily at mealtime Pancreatic enzymes (Creon) 01408-947[address] units [address] Particles capsule Take 3 capsules by mouth 2 times daily with meals. 180 capsule 11 05/11/2023 Active Start: 12-16-2021 End: 05-11-2023 take 54220-88560 capsules by mouth three times daily Eljwtq-Xeqfvimo-Gszfevd (Creon) 24,000-76,000 -120,000 unit capsule,delayed release(DR/EC) Discontinued [...] by mouth every week Ergocalciferol 1.25 MG (55931 UT) capsule Take 1 capsule by mouth once a week. 8 capsule 05/11/2023 Active Start: 01-28-2022 End: 03-19-2022 take 1 capsule by mouth every week ergocalciferol 1.25 MG (76096 UT) capsule Take 1 capsule by mouth once a week for 8 doses. 8 capsule 01/28/2022 Active famotidine (PEPCID) 20 MG/2ML 20 mg in sodium chloride (PF) 0.9 % 10 mL injection (2 sources) Start: 11-06-2024 take 10 mL intravenously twice daily 20 mg, IntraVENous, 2 TIMES DAILY, First dose on Thu11/06/24 at 2215, Until Discontinued, IV Push over minimum of 2 minutes - Dilute with 10 mL NS Start: 08-08-2024 End: 08-08-2024 take 10 mL intravenously once 20 mg, IntraVENous, ONCE , 1 dose, On 08/08/24 at 1900, IV Push over minimum of 2 minutes - Dilute with 10 mL NS 50 ml magnesium sulfate 40 mg/ml injection (1 source) Start: 11-06-2024 [place] (No Known Home Meds) (1 source) Start: 10-09-2021 [place] (No Known Home Meds) Active October 09, 2021 12:00am ondansetron (ZOFRAN-ODT) disintegrating tablet 4 mg (1 source) Start: 11-06-2024 ondansetron (ZOFRAN-ODT) disintegrating tablet 4 mg pantoprazole 40 mg delayed release oral tablet (7 sources) Proton Pump Inhibitor Start: 09-29-2023 take 1 tablet by mouth once daily before breakfast pantoprazole (PROTONIX) 40 MG tablet Take 1 tablet by mouth every morning (before breakfast) 90 tablet 1 09/29/2023 Active polyethylene glycol 3350 22367 mg powder for oral solution (2 sources) Osmotic Laxative Start: 11-06-2024 Start: 08-22-2019 17 g, Oral, DA KAMERON PRN, Constipation, Starting Thu08/22/19 at 1627 First line therapy for constipation Potassium Chloride (2 sources) Start: 11-06-2024 potassium chlo ride (KLOR-CON M) extended release tablet 40 mEq Start: 09-29-2023 End: 09-29-2023 potassium chloride 10 mEq/10 0 mL IVPB (Peripheral Line) sodium chloride flush 0.9 % injection 3 mL (1 source) Start: 09-29-2023 sodium chlorid e flush 0.9 % injection 3 mL Completed/Discontinued Medications Medication Drug Class(es) Dates Sig (Normalized) Sig (Original) acetaminophen 325 mg / oxyCODONE hydrochloride 5 mg oral tablet (20 sources) Opioid Agonist Start: 10-04-2021 End: 10-09-2021 take 1 tablet by mouth every six hours as needed for pain Oxycodone-Acetamino phen (Percocet) 5-325 mg tablet Discontinued 1 TAB PO Q6H as needed for pain 10 3 October 04, 2021 October 09, 2021 2:19pm Start: 03-28-2020 End: 04-19-2020 take 1 tablet by mouth every six hours as needed for pain Oxycodone-Acetaminophen (Percocet) 5-325 mg tablet Discontinued 1 TAB PO Q6H as needed for pain 10 March 28, 2020 April 19, 2020 7:36pm Start: 08-24-2017 End: 08-24-2017 oxyCODONE-acetaminophen (PER COCET) 5-325 mg per tablet 1 tablet take 1 tablet by kayleigh th every eight hours as needed oxyCODONE-acetaminophen (PERCOCET) 5-325 mg tablet Take 1 tablet by mouth every 8 hours as needed. Active bisacodyl 10 mg rectal suppository (1 [...] 1900 Start: 03-27-2023 take 1 tablet by kayleigh th four times daily Dicyclomine 20 mg [...] 3:17pm Start: 08-26-2021 take 1 tablet by kayleigh th every six hours dicyclomine (BENTYL) 20 [...] 05-14-2017 End: 05-15-2017 take 1 tablet by kayleigh th once daily famotidine (PEPCID) 20 MG [...] 05-14-2017 fentaNYL (SUBLIMAZE) injecti on 50 mcg gadoteridol (PROHANCE) injection 11 mL (1 source) Start: 11-08-2024 End: 11-08-2024 take 1 dose intravenously once 11 mL, IntraVENous, IMG ONCE PRN, 1 dose, Starting on Thu11/08/24 at 1129, Until Thu11/08/24 at 1130, Other 50 ml HYDROmorphone hydrochloride 10 mg/ml injection (20 sources) Opioid Agonist Start: 11-17-2024 End: 11-17-2024 0.5 mg, INTRAVENOUS, Administer over 1 Minutes, ONCE, 1 dose, On Eladia 11/17/24 at 1630, Administration method is bolus dose from bag via bolus feature on smart pump if this is the only medication running through the line (exception: IV fluids). Caution: IV hydromorphone is approximately 8 times MORE POTENT than IV morphine. For example, hydromorphone 1mg IV = morphine 8mg IV Start: 11-09-2024 0.25 mg, Intra VENous, EVERY 3 HOURS PRN, Starting on Thu11/09/24 at 0634, Until Discontinued, Pain Moderate (4-6) OR per patient request for pain score (7-10), If oral and IV narcotics ordered, use oral first and only use IV if oral is ineffective or cannot take oral. Do Not give oral and IV within 1 hour of each other unless specifically ordered. Start: 11-06-2024 End: 11-09-2024 0.5 mg, IntraVENous, EVERY 3 HOURS PRN, Starting on Thu11/06/24 at 2157, Until Thu11/09/24 at 0634, Pain Moderate (4-6) OR per patient request for pain score (7-10), If oral and IV narcotics ordered, use oral first and only use IV if oral is ineffective or cannot take oral. Do Not give oral and IV within 1 hour of each other unless specifically ordered. Start: 11-06-2024 End: 11-06-2024 take 0.5 mg by mouth once 0.5 mg, IntraVENous, ONCE, 1 dose, On Thu11/06/24 at 2100, If oral and IV narcotics ordered, use oral first and only use IV if oral is ineffective or cannot take oral. Do Not give oral and IV within 1 hour of each other unless specifically ordered. Start: 09-27-2024 End: 09-27-2024 take 0.5 mg [...] 1 d ose, On Eladia 04/07/24 at 1630 Start: 04-07-2024 [...] End: 08-24-2017 ketorolac (TORADOL) injection 30 mg 1 ml LORazepam 2 mg/ml injection (2 sources) Benzodiazepine Start: 11-08-2024 End: 11-08-2024 inject 1 dose intravenously once 1 mg, IntraVENous, ONCE, 1 dose, On Thu11/08/24 at 2215, Immediately prior to intravenous use, lorazepam Injection must be diluted with at least an equal volume of compatible solution (NS or D5W). mirtazapine 15 mg oral tablet (13 sources) Start: 12-01-2019 End: 11-02-2024 take 1 tablet by mouth at bedtime Mirtazapine 15 mg Tablet Discontinued 15 MG PO Bedtime March 28, 2020 1:00am May 31, 2020 3:51pm morphine sulfate 15 mg oral tablet (1 [...] injection (20 sources) Serotonin-3 Receptor Antagonist Start: 11-06-2024 End: 11-06-2024 4 mg, IntraVENous, ONCE, 1 dose, On Thu11/06/24 at 1900 Start: 10-28-2024 Start: 09-20-2024 End: 09-20-2024 4 mg, IntraVENous, ONCE, 1 d ose, On Thu09/20/24 at 1930 Start: 08-08-2024 End: 08-08-2024 4 mg, IntraVENous, ONCE, 1 d ose, On Thu08/08/24 at 1900 Start: 04-07-2024 End: 08-08-2024 take 1 tablet by mouth three times daily Ondansetron 4 mg tablet,disintegrating Active 4 MG PO Three times daily 02 09October 19, 2024 12:00am Complies with drug therapy Start: 04-07-2024 End: 04-07-2024 4 mg, IntraVENous, ONCE, 1 d ose, On Thu04/07/24 at 1415 Start: 01-19-2024 End: 01-19-2024 4 mg, Intravenous, ONCE N EEDED, 1 dose, Starting on Thu01/19/24 at 1000, Until Thu01/19/24 at 1007, Nausea / Vomiting, FIRST line antiemetic, Do not administer within 6 hours of intra-operative dose., Recovery Start: 01-07-2024 End: 01-07-2024 4 mg, IntraVENous, ONCE, 1 d ose, On Thu01/07/24 at 1615 Start: 04-11-2023 End: 10-28-2024 Ondansetron 4 mg tablet,disintegrating Discontinued 4 MG PO every 6 to [...] Start: 10-08-2020 End: 11-20-2020 Ondansetron 4 mg Tablet,Disintegrating Discontinued 4 MG PO every 6 to [...] 9:59am Start: 03-04-2018 take 1 tablet by kayleigh th every eight hours as needed ondansetron [...] mg oxyCODONE hydrochloride 5 mg oral tablet (9 sources) Opioid Agonist Start: 03-22-2022 End: 04-11-2023 take 1 tablet by mouth every four to six hours as needed for pain Oxycodone 5 mg tablet Discontinued 5 MG PO EVERY 4-6 HOURS as needed for pain 10 March 22, 2022 April 11, 2023 10:24pm Start: [...] sodium chloride 0.9 % 50 mL bolus prochlorperazine 5 mg/ml injectable solution (2 sources) [...] End: 08-24-2017 promethazine (PHENERGAN) suppository 25 mg promethazine HCl (PHENERGAN ORAL) Take by mouth. Active End: 05-14-2017 take 1 tablet by mouth every six hours as needed promethazine (PHENERGAN) 25 MG tablet Take 25 mg by mouth every 6 (six) hours as needed for nausea. 05/14/2017 Discontinued 50 ml sodium chloride 9 mg/m l injection (20 sources) Start: 11-06-2024 10 mL, IntraVE Nous, EVERY 12 HOURS SCHEDULED (2 times per day), First dose on Thu11/06/24 at 2215, Until Discontinued Start: 11-06-2024 Start: 11-06-2024 End: 11-08-2024 IntraVENous, at 100 mL/hr, CONTINUOUS, Starting on Thu11/06/24 at 2215, For 24 hours, Complete last bag that is running at 24 hours and then saline lock IV Start: 08-08-2024 End: 08-08-2024 1,000 mL (17.6 mL/kg), IntraVENous, at 495.9 mL/hr, Administer over 121 Minutes, ONCE, On Thu08/08/24 at 1900, For 1 dose Start: 04-07-2024 End: 04-07-2024 1,000 mL (17.6 mL/kg), IntraVENous, at 1,000 mL/hr, Administer over 1 Hours, ONCE, On [facility] 04/07/24 at 1415, For 1 dose Start: 01-07-2024 End: 01-07-2024 1,000 mL (18.4 mL/kg), IntraVENous, at 983.6 mL/hr, Administer over 61 Minutes, ONCE, On [facility] 01/07/24 at 1445, For 1 dose, For [...] Chronic abdominal pain; Translations: [Epigastric pain] Onset: 2 11-30-2014 Episodic Comment on above: Problem List [...] BILE DUCT] Onset: 3 Chronic Esophageal disorders (2 sources) Gastroesophageal reflux disease without esophagitis; Translations: [Gastro-esophageal reflux disease without esophagitis] Onset: 5 05-11-2023 Chronic Mood disorders (14 sources) Bipolar disorder; Translations: [Depressive disorder] Onset: 5 09-07-2014 Chronic Nausea and vomiting (20 sources) Nausea and vomiting; Translations: [Nausea with vomiting, unspecified] Onset: 2 Resolved: 7 11-30-2014 Episodic Comment on above: Problem List clean-u p per request of Phys. 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 EHR Cmte Other gastrointestinal disorders (6 sources) Loose stool; Translations: [Other fecal abnormalities] 11-03-2024 Episodic Other gastrointestinal disorders (6 sources) Heartburn; Translations: [Heartburn] 11-03-2024 Episodic Other gastrointestinal disorders (1 source) Other fecal abnormalities; Translations: [Loose stools] Onset: 5 Episodic Other gastrointestinal disorders (1 source) Heartburn; Translations: [Heartburn] Onset: 5 Episodic Other nervous system disorders (1 source) Chronic pain; Translations: [Other chronic pain] Chronic Other nervous system disorders (3 sources) Other chronic pain; Translations: [OTHER CHRONIC PAIN] Onset: 2 Chronic Other nervous system disorders (1 source) Chronic pain syndrome; Translations: [Chronic pain syndrome] Onset: 5 Chronic Other nutritional; endocrine; and metabolic disorders (3 sources) Hypercalcemia; Translations: [Hypercalcemia] 04-18-2023 Chronic Pancreatic disorders (20 sources) Chronic pancreatitis; Translations: [Other chronic pancreatitis] Onset: 5 Resolved: 6 06-30-2016 Chronic Comment on above: Problem List clean-u p per request of Phys. EHR Cmte Pancreatic disorders (20 sources) Alcohol-induced pancreatitis; Translations: [Acute pancreatitis] Onset: 6 Resolved: 5 06-30-2016 Episodic Comment on above: Problem List clean-u p per request of Phys. EHR Cmte Pancreatic disorders (not diabetes) (6 sources) Acute pancreatitis without necrosis or infection, unspecified; Translations: [Other acute pancreatitis without necrosis or infection] Onset: 8 03-08-2018 Regional enteritis and ulcerative colitis (1 source) Enteritis of small intestine Episodic Residual codes; unclassified (11 sources) Tobacco use and exposure - finding; Translations: [Tobacco use] Onset: 5 07-06-2015 Episodic Residual codes; unclassified (1 source) Acquired absence of uterus with remaining cervical stump; Translations: [ACQ ABSENCE UTRUS REM CERV STUMP] Onset: 3 Episodic Residual codes; unclassified (1 source) Procedure and treatment not carried out because of patient's decision for other reasons; Translations: [PROC AND TX NOT CARRIED OUT PT OT RSN] Onset: 3 Episodic Residual codes; unclassified (1 source) Tobacco use; Translations: [Tobacco use] Onset: 5 Episodic Screening and history of mental health and substance abuse codes (2 sources) Tobacco smoking behavior - finding; Translations: [Personal history of nicotine dependence] Episodic Substance-related disorders (2 sources) Nicotine dependence, cigarettes, uncomplicated; Translations: [Smoker] Onset: 3 05-11-2023 Chronic Unclassified (5 sources) Somatization disorder; 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] Onset: 5 10-09-2014 Chronic Past or Other Problems Problem Classification Problem Date Documented Da te Episodic/Chronic Biliary tract disease (3 sources) Gallstone; Translations: [Calculus of gallbladder without cholecystitis without obstruction] Onset: 08-22-2011 08-22-2011 Episodic Complication of device; implant or graft (9 sources) Breakdown (mechanical) of cranial or spinal infusion catheter, initial encounter; Translations: [Mechanical complication due to other implant and internal device, not elsewhere classified] Onset: 04-23-2016 Resolved: 04-24-2016 04-24-2016 Episodic Complications of surgical procedures or medical care (18 sources) Malfunction of gastrostomy tube; Translations: [Gastrostomy malfunction] Onset: 06-25-2015 Resolved: 06-09-2016 06-09-2016 Episodic Deficiency and other anemia (3 sources) Microcytic anemia; Translations: [Iron deficiency anemia, unspecified] Onset: 10-13-2011 10-13-2011 Episodic Diseases of white blood cells (9 [...] communicable diseases Onset: 03-19-2021 Resolved: 03-19-2021 Episodic Intestinal infection (1 source) Viral intestinal infection, unspecified; Translations: [Viral intestinal infection, unspecified] Onset: 09-05-2024 Episodic Noninfectious gastroenteritis (2 sources) Noninfective gastroenteritis [...] Translations: [CONSTIPATION UNSPECIFIED] Onset: 08-28-2021 Episodic Other nutritional; endocrine; and metabolic disorders (3 sources) Loss of appetite; Translations: [Anorexia] Onset: 08-22-2011 08-22-2011 Episodic Other nutritional; endocrine; and metabolic disorders (3 sources) Weight decreased; Translations: [Abnormal weight loss] Onset: 08-22-2011 08-22-2011 Episodic Other nutritional; endocrine; and metabolic disorders (1 source) Anorexia; Translations: [Loss of appetite] Onset: 08-22-2011 Episodic Other screening for suspected conditions (not mental disorders or infectious disease) (20 sources) Patient encounter status; Translations: [Encounter for screening for malignant neoplasm of colon] Onset: 07-06-2015 Resolved: 06-09-2016 Episodic Residual codes; unclassified (2 sources) Acquired absence of other specified parts of digestive tract; Translations: [ACQ ABSENCE OTH PART DIGESTV TRACT] Onset: 08-22-2011 Episodic Residual codes; unclassified (4 sources) Procedure and treatment not carried out due to patient leaving prior to being seen by health care provider; Translations: [PROC AND TX NOT CARRIED OUT PT LEAVE] Onset: 09-30-2021 Episodic Viral infection (1 source) COVID-19 Onset: 03-19-2021 Resolved: 03-19-2021 Results Test Name Value Interpretation Reference Range Facility [facility] 12-13-2024 CNOV Office Visit (GGENMN ) ----- CHIOMA RAINEY ([id number]) 1970 F Date Time Provider Department 12/13/24 10:00 AM LINDSEY WILLARD GGKATELINMN During your visit today, we recorded the following information about you: Pulse Blood pressure Weight Height 87/minute 144/80 54 kg 1.575 m Lindsey Willard ALEA.IT INTERN 12/13/2024 1:10 PM Signed NAME: Chioma Rainey AGE: [age] year old Follow up visit for pancreatitis. Last seen: 11/02/2024 HISTORY The patient is a 54-year-old female with chronic pancreatitis, presenting with persistent epigastric pain, nausea, vomiting, and significant unintentional weight loss. She reports constant, midline abdominal pain radiating to the left lower quadrant, currently rated as 6/10, which she considers an improvement compared to her baseline. She has had multiple recent ER visits and was hospitalized for 2 days, being discharged 2 days ago. She has experienced severe nausea and vomiting, with nearly all oral intake being emetogenic, including liquid nutritional supplements. This has led to a marked decrease in oral intake and a 22-lb unintentional weight loss over the past 4-5 months (from 135 lbs to 113 lbs), with 12 lbs lost in the past month alone. She has a history of cholecystectomy 10-12 years ago. MRI of the abdomen on 11/08 showed mild bile duct dilation, but the pancreas appeared normal. She has a history of a JG tube, which she reports was helpful, and a prior unsuccessful attempt at nasogastric tube feeding due to persistent emesis. She has also undergone multiple celiac plexus blocks, with the most recent providing no relief. She is currently taking Creon with meals, but has not been able to take it regularly due to minimal oral intake. She is taking amitriptyline 25 mg nightly and reports feeling well on this dose. She also takes Pepcid for frequent heartburn, but found Protonix ineffective. She denies marijuana use and alcohol consumption, and is currently smoking less than half a pack of cigarettes per day. PERTINENT PRIOR DIAGNOSTIC TESTING ED to Hospital Admission 12/09-12/11/2024 HOSPITAL COURSE: This is a 54-year-old female with remote history of alcohol use and chronic pancreatitis who presented to [facility] Main ED on 12/09 with progressively worsening epigastric pain and N/V x3 days. Was seen in emergency department 12/[address] scan with chronic findings but also a mucosal pancreatic wall thickening. She follows with [facility] GI outpatient and underwent a celiac plexus block 11/17 without any improvement of her pain. Returns back to the emergency department for significant pain and persistent vomiting. In ED, BP elevated but otherwise VSS. Lipase WNL. Labs notable for WBC 12.49 and creatinine slightly elevated from baseline at 1.0. Repeat CT abd/pelvis not performed as one done at OSH day prior (12/08). CT A/P: No evidence of acute pancreatitis. However, there is 1.9 cm focal mucosal soft tissue thickening at the ampulla of Vater. Further characterization with contrast-enhanced abdomen MRI and MRCP versus direct visualization is advised on nonemergent basis. Patient admitted to Hospital Medicine for further workup and management. Patient given IVF, pain control, and made NPO. Her diet was advanced as tolerated. Her nausea, vomiting, and pain improved. She was eager for discharge home on 12/11/2024. She has follow-up with her established GI team on 12/13/24. Discussed with patient to bring CT results and discuss with outpatient provider as she deferred additional imaging inpatient at this time. EGD w/ CPB Demetrius 11/17/2024 Findings: ENDOSCOPIC FINDING: : The examined esophagus [...] entire pancreas. - Celiac plexus block performed. [facility] 11/02/2024 IMPRESSION AND PLAN Chioma Cuellar (more content not included)... Normal [facility] CNDSon 12-11-2024 CNDS HNO ID: [id number] Author: ALEXUS YOUNGBLOOD PA-C Service: Hospital Medicine Author Type: Physician Biomedical Electronics Technician Type: Discharge Summary Filed: 12/11/2024 09:45 Note Text: ----- Attestation signed by Marianna John MD at 12/11/2024 3:57 PM [facility] STAFF PHYSICIAN NOTE OF PERSONAL INVOLVEMENT IN CARE Patient seen and evaluated with the JOSE LUIS. I have reviewed the discharge summary obtained and documented by the physician assistant director of security and I personally participated in the garcia components. I have discussed the case and management of the patient's care. The following comments revise or confirm relevant garcia components of their note. Patient seen on day of discharge. Feeling well, tolerating PO well. Abdominal pain is improved. She will follow up w/ GI and PCP. On exam, she is sitting up on side of bed. No acute distress. RRR, no resp distress, abdomen is soft, nondistended, minimally tender to palpation. AANDO x4, moving all extremities spontaneously. I personally spent greater than 30 minutes involved in the management of this patient SIGNATURE: Marianna John MD ----- DISCHARGE SUMMARY PATIENT NAME: Chioma Rainey ADMISSION DATE: 12/09/2024 DISCHARGE DATE: 12/11/2024 ATTENDING PHYSICIAN: Marianna John MD Code Status: Full Code PCP: Cynthia Galindo CNP Highest Readmission Risk Score: 7 The 30 day readmissions risk score is derived from an internally validated risk model which evaluates patient level characteristics, utilization history, medication orders and lab results up until the day of discharge. Patients with a score of 39 or above are considered highest risk for readmission. Specific patient level drivers will be listed at the bottom of the summary. TRANSITIONS OF CARE CRITICAL ISSUES: GARCIA MEDICATION CHANGES: - tylenol and oxycodone PRN pain x 3 days - zofran PRN nausea FOLLOW-UPS: - follow-up with PCP within 5-7 days of hospital discharge - follow-up with GI as scheduled 12/13/24. REASON FOR HOSPITALIZATION/FINAL DIAGNOSIS: acute on chronic pancreatitis HOSPITAL PROBLEMS: Active Hospital Problems Diagnosis POA Acute on chronic pancreatitis (HCC) Yes Nausea AND vomiting Yes Resolved Hospital Problems No resolved problems to display. HOSPITAL COURSE: This is a 54-year-old female with remote history of alcohol use and chronic pancreatitis who presented to [facility] Main ED on 12/09 with progressively worsening epigastric pain and N/V x3 days. Was seen in emergency department 12/[address] scan with chronic findings but also a mucosal pancreatic wall thickening. She follows with [facility] GI outpatient and underwent a celiac plexus block 11/17 without any improvement of her pain. Returns back to the emergency department for significant pain and persistent vomiting. In ED, BP elevated but otherwise VSS. Lipase WNL. Labs notable for WBC 12.49 and creatinine slightly elevated from baseline at 1.0. Repeat CT abd/pelvis not performed as one done at OSH day prior (12/08). CT A/P: No evidence of acute pancreatitis. However, there is 1.9 cm focal mucosal soft tissue thickening at the ampulla of Vater. Further characterization with contrast-enhanced abdomen MRI and MRCP versus direct visualization is advised on nonemergent basis. Patient admitted to Hospital Medicine for further workup and management. Patient given IVF, pain control, and made NPO. Her diet was advanced as tolerated. Her nausea, vomiting, and pain improved. She was eager for discharge home on 12/11/2024. She has follow-up with her established GI team on 12/13/24. Discussed with patient to bring CT results and discuss with outpatient provider as she deferred additional imaging inpatient at this time. OPERATIONS/PROCEDURE DURING THIS HOSPITALIZATION: * No surgery found * CONSULTS DURING HOSPITALIZATION: Treatment Team: Attending Provider: Marianna John MD Primary Service: GIM 2 Physician Biomedical Electronics Technician: Alexus Youngblood PA-C PATIENT CONDITION AT DISCHARGE: Stable DISCHARGE DISPOSITION: Home with Self Care BP 110/68 Pulse 69 Temp 36.4 ?C (97.5 ?F) (Oral) Resp 16 Ht 157.5 cm (5' 2 ) Wt 51.6 kg (113 lb 12.1 oz) SpO2 100% BMI 20.81 kg/m? Physical Exam Performed General: Well-developed, well-nourished. Cooperative. Appears in no apparent distress. Skin: Intact without obvious rashes or lesions. HEENT: Normocephalic, atraumatic. Moist mucosa. Lungs: Clear to auscultation BL. Good diaphragmatic excursion. On RA Cardiac: Regular rate and rhythm. Abdomen: Soft, improved tenderness of epigastric region. No distention, rebound, or guarding. Bowel sounds are normal. Extremities: No deformities or edema. Neuro: Sensation and strength grossly intact. Follows commands. Speech clear. AANDOx3. WOUND/SURGICAL SITE CAR (more content not included)... Normal [facility] CBC panel Auto (Bld)on 12-10 Erythrocyte distribution width (RBC) [Ratio] 12.2 % Normal 11.5-15.0 [facility] Comment on above: Order Comment: Speci men Type: BLOOD SPECIMENOrdering Facility: [facility] Address: [address] [place] [address] Performed By: #### 5 8410-2 ####[facility] LABIA [id number] [place] [address] [place] Hematocrit (Bld) [Volume fraction] 38.2 % Normal 36.0-46.0 [facility] Comment on above: Order Comment: Speci men Type: BLOOD SPECIMENOrdering Facility: [facility] Address: [address] [place] [address] Performed By: #### 5 8410-2 ####[facility] LABIA [id number] [place] [address] [place] Hemoglobin (Bld) [Mass/Vol] 13.0 g/dL Normal 11.5-15.5 [facility] Comment on above: Order Comment: Speci men Type: BLOOD SPECIMENOrdering Facility: [facility] Address: [address] [place] [address] Performed By: #### 5 8410-2 ####[facility] LABIA [id number] [place] [address] [place] MCH (RBC) [Entitic mass] 32.8 pg Normal 26.0-34.0 [facility] Comment on above: Order Comment: Speci men Type: BLOOD SPECIMENOrdering Facility: [facility] Address: [address] [place] [address] Performed By: #### 5 8410-2 ####[facility] LABIA [id number] [place] [address] [place] MCHC (RBC) [Mass/Vol] 34.0 g/dL Normal 30.5-36.0 [facility] Comment on above: Order Comment: Speci men Type: BLOOD SPECIMENOrdering Facility: [facility] Address: [address] [place] [address] Performed By: #### 5 8410-2 ####[facility] [id number] [place] [address] [place] MCV (RBC) [Entitic vol] 96.5 fL Normal 80.0-100.0 [facility] Comment on above: Order Comment: Speci men Type: BLOOD SPECIMENOrdering Facility: [facility] Address: [address] [place] [address] Performed By: #### 5 8410-2 ####[facility] [id number] [place] [address] [place] Nucleated RBC (Bld) [#/Vol] 10*3/uL Normal <0.01 [facility] Comment on above: Order Comment: Speci men Type: BLOOD SPECIMENOrdering Facility: [facility] Address: [address] [place] [address] Performed By: #### 5 8410-2 ####[facility] [id number] [place] [address] [place] Platelet mean volume (Bld) [Entitic vol] 9.4 fL Normal 9.0-12.7 [facility] Comment on above: Order Comment: Speci men Type: BLOOD SPECIMENOrdering Facility: [facility] Address: [address] [place] [address] Performed By: #### 5 8410-2 ####[facility] LABCLIA [id number] [place] [address] [place] Platelets (Bld) [#/Vol] 337 10*3/uL Normal 150-400 [facility] Comment on above: Order Comment: Speci men Type: BLOOD SPECIMENOrdering Facility: [facility] Address: [address] [place] [address] Performed By: #### 5 8410-2 ####[facility] LABCLIA [id number] [place] [address] [place] RBC (Bld) [#/Vol] 3.96 10*6/uL Normal 3.90-5.20 [facility] Comment on above: Order Comment: Speci men Type: BLOOD SPECIMENOrdering Facility: [facility] Address: [address] [place] [address] Performed By: #### 5 8410-2 ####[facility] LABIA [id number] [address] [address] [place] WBC (Bld) [#/Vol] 9.21 10*3/uL Normal 3.70-11.00 [facility] Comment on above: Order Comment: Speci men Type: BLOOD SPECIMENOrdering Facility: [facility] Address: [address] [place] [address] Performed By: #### 5 8410-2 ####[facility] LABCLIA [id number] [address] [address] [place] HISTORY PHYSICALon HISTORY PHYSICAL HNO ID: [id number] Author: STU REY PA-C Service: Hospital Medicine Author Type: Physician Biomedical Electronics Technician Type: H&P Filed: 12/10/2024 08:04 Note Text: ----- Attestation signed by Marianna John MD at 12/11/2024 3:56 PM [facility] STAFF PHYSICIAN NOTE OF PERSONAL INVOLVEMENT IN CARE Patient seen and evaluated with the PA. I have reviewed the history and physical examination obtained and documented by the physician assistant director of security and I personally participated in the garcia components. I have discussed the case and management of the patient's care. The following comments revise or confirm relevant garcia components of their note. Patient seen on 12/10, day of admission. She was already feeling better by the time of my evaluation. Tolerating sips of liquids well. Pain is primary symptom, still some nausea. Hoping for dc in the morning. On exam, no acute distress, sitting up in bed, RRR, on room air, abdomen is soft/nondistended w/ mild tenderness to palpation in epigastric region. AANDO x4, moving extremities spontaneously. No edema of b/l LE. Will treat supportively and help arrange GI follow up. I personally spent greater than 30 minutes involved in the management of this patient SIGNATURE: Marianna John MD ----- [facility] MEDICINE HISTORY AND PHYSICAL EXAM SERVICE DATE: 12/10/2024 SERVICE TIME: 2:34 AM Primary Care Physician: Cynthia Galindo CNP NIGHT AND WEEKEND COVERAGE: Day: Please page GIM treatment team listed under [facility] Teams. Overnight (5:00PM --> 07:30AM): For patients on H80/H81/G80/G81/ED/EDTU/E 20 please page [phone] For patients on Any Other Floor including building, J83, J1-2 please page [phone] Subjective CHIEF COMPLAINT: Epigastric pain HPI: This is a 54-year-old female with remote history of alcohol use and chronic pancreatitis who presented to [facility] Main ED on 12/09 with progressively worsening epigastric pain and N/V x3 days. She is followed by gastroenterology here at [facility]. Was seen in emergency department 12/[address] scan with chronic findings but also a mucosal pancreatic wall thickening. She underwent a celiac plexus block without any improvement of her pain. Returns back to the emergency department significant pain that is unable to be controlled at home as well as persistent vomiting. Seen resting in hospital bed, rates epigastric pain as 8/10 helped with IV Dilaudid. Follows with GI here at [facility]. Last saw Lindsey Willard 11/02/2024. Recommended restart creon and elavil. Also ordered endoscopic US guided celiac plexus block. Underwent block 11/17 with no relief. Last tolerated PO about 1 week ago. Has significant epigastric pain that radiates to back and LLQ, also n/v. Emesis is NBNB. Has red emesis right now but just had a monroy ensure. No red emesis prior to this red liquid. Last etoh 12 years ago. Not currently on creon because she is not eating. She was at [facility] yesterday for this current episode. CT at that time with no e/o acute pancreatitis. Did show 1.9 cm focal mucosal soft tissue thickening at ampulla of vater, recommended MRI abd w contrast and MRCP. Patient elected to leave the ED given no emergent findings. Came here bc this is where she gets her GI care. She has a GI appt next week. BP 150/74 HR 91 RA Lipase normal. Amylase normal. CT A/P: No evidence of acute pancreatitis. However, there is 1.9 cm focal mucosal soft tissue thickening at the ampulla of Vater. Further characterization with contrast-enhanced abdomen MRI and MRCP versus direct visualization is advised on nonemergent basis. The following problems are present on admission at this time: Weight loss Anemia Continue current outpatient treatment plan and current medications for these conditions, except where otherwise noted. PAST MEDICAL HISTORY Diagnosis Date Epigastric pain Lumbar disc disease Microcytic anemia PAST SURGICAL HISTORY Procedure Laterality Date COLONOSCOPY FLX DX W/COLLJ SPEC WHEN PFRMD ESOPHAGOGASTRODUODENOSCOP Y TRANSORAL DIAGNOSTIC x2 LAPAROSCOPY SURG CHOLECYSTECTOMY Mar Cholecystectomy, lap PAST SURGICAL HISTORY OF 2013 Hysterectomy FAMILY HISTORY Problem Relation Age of Onset Diabetes Mother Hypertension Father Stroke Paternal Grandmother Stroke Paternal Grandfather SOCIAL HISTORY[1] PRIOR TO ADMISSION MEDICATIONS: Prior to Admission Medications Prescriptions Last Dose Informant Patient Reported? Taking? amitriptyline (ELAVIL) 25 mg tablet No No Sig: Take 1 tablet by mouth daily at bedtime. dgneuh-slhtmkva-kofkhus (CREON) 24,000-76,000 -120,000 unit delayed release capsule No No Sig: Take 2 caps by mouth 3 times daily with meals and 1 cap with each snack. Take 1st cap before meal starts and the 2nd cap hill (more content not included)... Normal [facility] PT panel Coag (PPP)on 2024 INR Coag (PPP) [Relative time] 1.1 {INR} Normal 0.9-1.3 [facility] Comment on above: Order Comment: Speci men Type: BLOOD SPECIMENOrdering Facility: [facility] Address: [address] [place] [address] Result Comment: Danyelle min K Antagonist (VKA) Therapeutic Range: INR 2 to 3 (Target INR of 2.5) Note: For patients treated with VKA drugs, such as warfarin, the [employer] 2012 Guideline recommends a therapeutic INR range of 2 to 3 (target INR of 2.5). This recommendation includes high-risk patients with antiphospholipid syndrome with previous arterial or venous thromboembolism, current-generation mechanical or bioprosthetic aortic heart valve replacement. Note: Patients with mechanical aortic valve replacement and additional risk factors for thromboembolic events (atrial fibrillation, previous thromboembolism, LV dysfunction, hypercoagulable conditions) or an older generation mechanical AVR (i.e., ball in-Cage) or any mechanical MVR should have a INR therapeutic range of 2.5 to 3.5 (target INR of 3). Tolu LÓEPZ, et al. Chest 2012, 141:7S-47S Amrita ROGER et al. [facility] 2017, 70: 252-289 Performed By: #### 3 4528-0 ####[facility] LABCLIA [id number] [place] [id number] [place] PT Coag (PPP) [Time] 11.5 s Normal 9.7-13.0 [facility] Comment on above: Order Comment: Speci men Type: BLOOD SPECIMENOrdering Facility: [facility] Address: [address] [place] [address] Performed By: #### 3 4528-0 ####[facility] LABIA [id number] [place] [id number] [place] Renal function 2000 panelon 12-10-2024 Albumin [Mass/Vol] 3.9 g/dL Normal 3.9-4.9 [facility] Comment on above: Order Comment: Speci men Type: BLOOD SPECIMENOrdering Facility: [facility] Address: [address] [place] [address] Performed By: #### 2 4362-6 ####[facility] LABIA [id number] [place] [address] [place] Anion gap [Moles/Vol] 12 mmol/L Normal 8-15 [facility] Comment on above: Order Comment: Speci men Type: BLOOD SPECIMENOrdering Facility: [facility] Address: [address] [place] [address] Performed By: #### 2 4362-6 ####[facility] LABIA [id number] [place] [id number] [place] Calcium [Mass/Vol] 10.2 mg/dL Normal 8.5-10.2 [facility] Comment on above: Order Comment: Speci men Type: BLOOD SPECIMENOrdering Facility: [facility] Address: [address] [place] [address] Performed By: #### 2 4362-6 ####[facility] LABIA [id number] [place] [id number] [place] Chloride [Moles/Vol] 105 mmol/L Normal 98-107 [facility] Comment on above: Order Comment: Speci men Type: BLOOD SPECIMENOrdering Facility: [facility] Address: [address] [place] [address] Performed By: #### 2 4362-6 ####[facility] LABCLIA [id number] [place] [id number] [place] CO2 [Moles/Vol] 23 mmol/L Normal 22-30 [facility] Comment on above: Order Comment: Speci men Type: BLOOD SPECIMENOrdering Facility: [facility] Address: [address] [place] [address] Performed By: #### 2 4362-6 ####[facility] LABIA [id number] [address] STATES OF [facility] Creatinine [Mass/Vol] 0.78 mg/dL Normal 0.58-0.96 [facility] Comment on above: Order Comment: Speci men Type: BLOOD SPECIMENOrdering Facility: [facility] Address: [address] [place] [address] Performed By: #### 2 4362-6 ####[facility] LABIA [id number] [place] [address] [place] eGFRcr SerPlBld CKD-EPI 2020 90 mL/min/1.73m??? Normal >=60 [facility] Comment on above: Order Comment: Speci men Type: BLOOD SPECIMENOrdering Facility: [facility] Address: [address] [place] [address] Result Comment: Patti mated Glomerular Filtration Rate (eGFR) is calculated using the 2020 CKD-EPI creatinine equation. This equation utilizes serum creatinine, sex, and age as parameters. The creatinine assay has traceable calibration to isotope dilution-mass spectrometry. Refer to KDIGO guidelines for clinical interpretation. In patients with unstable renal function, e.g. those with acute kidney injury, the eGFR may not accurately reflect actual GFR. Performed By: #### 2 4362-6 ####[facility] LABIA [id number] [place] [id number] [place] Glucose [Mass/Vol] 97 mg/dL Normal 74-99 [facility] Comment on above: Order Comment: Speci men Type: BLOOD SPECIMENOrdering Facility: [facility] Address: [address] [place] [address] Result Comment: The [place] Diabetes Association (ADA) provides guidance for cutoff values for fasting glucose and random glucose. The ADA defines fasting as no caloric intake for at least 8 hours. Fasting plasma glucose results between 100 to 125 mg/dL indicate increased risk for diabetes (prediabetes). Fasting plasma glucose results greater than or equal to 126 mg/dL meet the criteria for diagnosis of diabetes. In the absence of unequivocal hyperglycemia, results should be confirmed by repeat testing. In a patient with classic symptoms of hyperglycemia or hyperglycemic crisis, random plasma glucose results greater than or equal to 200 mg/dL meet the criteria for diagnosis of diabetes. Reference: Standards of Medical Care in Diabetes 2016, [place] [employer]. Diabetes Care. 2016.39(Suppl 1). Performed By: #### 2 4362-6 ####[facility] LABIA [id number] [place] [id number] [place] Phosphate [Mass/Vol] 2.7 mg/dL Normal 2.7-4.8 [facility] Comment on above: Order Comment: Speci men Type: BLOOD SPECIMENOrdering Facility: [facility] Address: [address] [place] [address] Performed By: #### 2 4362-6 ####[facility] LABIA [id number] [place] [id number] [place] Potassium [Moles/Vol] 3.8 mmol/L Normal 3.7-5.1 [facility] Comment on above: Order Comment: Speci men Type: BLOOD SPECIMENOrdering Facility: [facility] Address: [address] [place] [address] Performed By: #### 2 4362-6 ####[facility] LABIA [id number] [place] [id number] [place] Sodium [Moles/Vol] 140 mmol/L Normal 136-144 [facility] Comment on above: Order Comment: Speci men Type: BLOOD SPECIMENOrdering Facility: [facility] Address: [address] [place] [address] Performed By: #### 2 4362-6 ####[facility] LABCLIA [id number] [place] [address] [place] Urea nitrogen [Mass/Vol] 14 mg/dL Normal 7-21 [facility] Comment on above: Order Comment: Speci men Type: BLOOD SPECIMENOrdering Facility: [facility] Address: [address] [place] [address] Performed By: #### 2 4362-6 ####[facility] LABCLIA [id number] [address], [place] [address] [place] Urinalysis complete panel (U )on 12-10-2024 Bacteria LM.HPF (Urine sed) [#/Area] Negative Normal Negative [facility] Comment on above: Order Comment: Speci men Type: URINE SPECIMENOrdering Facility: [facility] Address: [address] [place] [address] Performed By: #### 2 4356-8 ####[facility] LABCLIA [id number] [address], [place] [address] [place] Bilirubin Ql (U) Negative Normal Negative [facility] Comment on above: Order Comment: Speci men Type: URINE SPECIMENOrdering Facility: [facility] Address: [address] [place] [address] Performed By: #### 2 4356-8 ####[facility] LABCLIA [id number] [place] [id number] [place] Clarity (Unsp spec) Cloudy Abnormal Clear [facility] Comment on above: Order Comment: Speci men Type: URINE SPECIMENOrdering Facility: [facility] Address: [address] [place] [address] Performed By: #### 2 4356-8 ####[facility] LABCLIA [id number] [address], [place] [address] [place] Color (U) Dark Yellow Abnormal Yellow [facility] Comment on above: Order Comment: Speci men Type: URINE SPECIMENOrdering Facility: [facility] Address: [address] [place] [address] Performed By: #### 2 4356-8 ####[facility] LABCLIA [id number] [address], [place] [address] [place] Epithelial cells LM.HPF (Urine sed) [#/Area] Moderate Normal [facility] Comment on above: Order Comment: Speci men Type: URINE SPECIMENOrdering Facility: [facility] Address: [address] [place] [address] Performed By: #### 2 4356-8 ####[facility] LABCLIA [id number] [place] [address] [place] Glucose Test strip (U) [Mass/Vol] Negative Normal Negative [facility] Comment on above: Order Comment: Speci men Type: URINE SPECIMENOrdering Facility: [facility] Address: [address] [place] [address] Performed By: #### 2 4356-8 ####[facility] LABCLIA [id number] [place] [id number] [place] Hemoglobin Ql (U) Negative Normal Negative [facility] Comment on above: Order Comment: Speci men Type: URINE SPECIMENOrdering Facility: [facility] Address: [address] [place] [address] Performed By: #### 2 4356-8 ####[facility] LABCLIA [id number] [address], [facility] [place] Hyaline casts (Urine sed) [#/Area] /[LPF] Abnormal 0 /LPF [facility] Comment on above: Order Comment: Speci men Type: URINE SPECIMENOrdering Facility: [facility] Address: [address] [place] [address] Performed By: #### 2 4356-8 ####[facility] LABCLIA [id number] [address] [place] [address] [place] Ketones Ql (U) Trace Abnormal Negative [facility] Comment on above: Order Comment: Speci men Type: URINE SPECIMENOrdering Facility: [facility] Address: [address] [place] [address] Performed By: #### 2 4356-8 ####[facility] LABCLIA [id number] [place] [address] [place] Leukocyte esterase Test strip Ql (U) Negative Normal Negative [facility] Comment on above: Order Comment: Speci men Type: URINE SPECIMENOrdering Facility: [facility] Address: [address] [place] [address] Performed By: #### 2 4356-8 ####[facility] LABCLIA [id number] [address], [place] [address] [place] Nitrite Ql (U) Negative Normal Negative [facility] Comment on above: Order Comment: Speci men Type: URINE SPECIMENOrdering Facility: [facility] Address: [address] [place] [address] Performed By: #### 2 4356-8 ####[facility] LABCLIA [id number] [place] [id number] [place] pH (U) 5.5 [pH] Normal 5.0-8.0 [facility] Comment on above: Order Comment: Speci men Type: URINE SPECIMENOrdering Facility: [facility] Address: [address] [place] [address] Performed By: #### 2 4356-8 ####[facility] LABCLIA [id number] [address], [facility] [place] Protein (U) [Mass/Vol] 1+ Abnormal Negative Cl [facility] Comment on above: Order Comment: Speci men Type: URINE SPECIMENOrdering Facility: [facility] Address: [address] [place] [address] Performed By: #### 2 4356-8 ####[facility] LABIA [id number] [place] [address] [place] RBC LM.HPF (Urine sed) [#/Area] 3-5 /HPF Abnormal 0-2 /HPF [facility] Comment on above: Order Comment: Speci men Type: URINE SPECIMENOrdering Facility: [facility] Address: [address] [place] [address] Performed By: #### 2 4356-8 ####[facility] [id number] [place] [address] [place] Specific gravity (U) [Rel density] 1.040 High 1.005-1.[address] [facility] Comment on above: Order Comment: Speci men Type: URINE SPECIMENOrdering Facility: [facility] Address: [address] [place] [address] Performed By: #### 2 4356-8 ####[facility] [id number] [place] [address] [place] Urobilinogen Ql (U) 1.0 EU/dL Normal 0.2-1.0 EU/dL [facility] Comment on above: Order Comment: Speci men Type: URINE SPECIMENOrdering Facility: [facility] Address: [address] [place] [address] Performed By: #### 2 4356-8 ####[facility] LABIA [id number] [place] [address] [place] WBC LM.HPF (Urine sed) [#/Area] 0-5 /HPF Normal 0-5 /HPF [facility] Comment on above: Order Comment: Speci men Type: URINE SPECIMENOrdering Facility: [facility] Address: [address] [place] [address] Performed By: #### 2 4356-8 ####[facility] LABIA [id number] [place] [address] [place] Yeast.budding LM.HPF (Urine sed) [#/Area] Present Abnormal None Seen [facility] Comment on above: Order Comment: Speci men Type: URINE SPECIMENOrdering Facility: [facility] Address: [address] [place] [address] Performed By: #### 2 4356-8 ####[facility] LABIA [id number] [place] [address] [place] Amylase SerPl-cCncon 025 Amylase [Catalytic activity/Vol] 94 U/L Normal 30-104 [facility] Comment on above: Order Comment: Speci men Type: BLOOD SPECIMENOrdering Facility: [facility] Address: [address] [place] [address] Performed By: #### L IPNF, 1798-8, 3040-3, 23910-3 ####[facility] [id number] [place] [address] [place] CBC W Auto Differential pane l (Bld)on 12-09-2024 Basophils (Bld) [#/Vol] 0.09 10*3/uL Normal <0.11 [facility] Comment on above: Order Comment: Speci men Type: BLOOD SPECIMENOrdering Facility: [facility] Address: [address] [place] [address] Performed By: #### 5 7021-8 ####[facility] [id number] [place] [address] [place] Basophils/100 WBC (Bld) 0.7 % Normal [facility] Comment on above: Order Comment: Speci men Type: BLOOD SPECIMENOrdering Facility: [facility] Address: [address] [place] [address] Performed By: #### 5 7021-8 ####[facility] LABCLIA [id number] [facility] [address], [place] [address] [place] Differential cell count method Nom (Bld) Auto Normal [facility] Comment on above: Order Comment: Speci men Type: BLOOD SPECIMENOrdering Facility: [facility] Address: [address] [place] [address] Performed By: #### 5 7021-8 ####[facility] LABCLIA [id number] [place] [address] [place] Eosinophils (Bld) [#/Vol] 0.05 10*3/uL Normal <0.46 [facility] Comment on above: Order Comment: Speci men Type: BLOOD SPECIMENOrdering Facility: [facility] Address: [address] [place] [address] Performed By: #### 5 7021-8 ####[facility] LABCLIA [id number] [place] [address] [place] Eosinophils/100 WBC (Bld) 0.4 % Normal [facility] Comment on above: Order Comment: Speci men Type: BLOOD SPECIMENOrdering Facility: [facility] Address: [address] [place] [address] Performed By: #### 5 7021-8 ####[facility] LABIA [id number] [place] [address] [place] Erythrocyte distribution width (RBC) [Ratio] 12.5 % Normal 11.5-15.0 [facility] Comment on above: Order Comment: Speci men Type: BLOOD SPECIMENOrdering Facility: [facility] Address: [address] [place] [address] Performed By: #### 5 7021-8 ####[facility] LABCLIA [id number] [place] [address] [place] Hematocrit (Bld) [Volume fraction] 43.8 % Normal 36.0-46.0 [facility] Comment on above: Order Comment: Speci men Type: BLOOD SPECIMENOrdering Facility: [facility] Address: [address] [place] [address] Performed By: #### 5 7021-8 ####[facility] LABCLIA [id number] [place] [address] [place] Hemoglobin (Bld) [Mass/Vol] 15.2 g/dL Normal 11.5-15.5 [facility] Comment on above: Order Comment: Speci men Type: BLOOD SPECIMENOrdering Facility: [facility] Address: [address] [place] [address] Performed By: #### 5 7021-8 ####[facility] LABCLIA [id number] [place] [address] [place] Immature granulocytes (Bld) [#/Vol] 0.03 10*3/uL Normal <0.10 [facility] Comment on above: Order Comment: Speci men Type: BLOOD SPECIMENOrdering Facility: [facility] Address: [address] [place] [address] Performed By: #### 5 7021-8 ####[facility] LABCLIA [id number] [place] [address] [place] Immature granulocytes/100 WBC (Bld) 0.2 % Normal [facility] Comment on above: Order Comment: Speci men Type: BLOOD SPECIMENOrdering Facility: [facility] Address: [address] [place] [address] Performed By: #### 5 7021-8 ####[facility] LABCLIA [id number] [place] [address] [place] Lymphocytes (Bld) [#/Vol] 2.53 10*3/uL Normal 1.00-4.00 [facility] Comment on above: Order Comment: Speci men Type: BLOOD SPECIMENOrdering Facility: [facility] Address: [address] [place], [place] [address] Performed By: #### 5 7021-8 ####[facility] LABIA [id number] [place] [address] [place] Lymphocytes/100 WBC (Bld) 20.3 % Normal [facility] Comment on above: Order Comment: Speci men Type: BLOOD SPECIMENOrdering Facility: [facility] Address: [address] [place] [address] Performed By: #### 5 7021-8 ####[facility] LABIA [id number] [place] [address] [place] MCH (RBC) [Entitic mass] 33.4 pg Normal 26.0-34.0 [facility] Comment on above: Order Comment: Speci men Type: BLOOD SPECIMENOrdering Facility: [facility] Address: [address] [place] [address] Performed By: #### 5 7021-8 ####[facility] LABIA [id number] [place] [address] [place] MCHC (RBC) [Mass/Vol] 34.7 g/dL Normal 30.5-36.0 [facility] Comment on above: Order Comment: Speci men Type: BLOOD SPECIMENOrdering Facility: [facility] Address: [address] [place] [address] Performed By: #### 5 7021-8 ####[facility] LABIA [id number] [place] [address] [place] MCV (RBC) [Entitic vol] 96.3 fL Normal 80.0-100.0 [facility] Comment on above: Order Comment: Speci men Type: BLOOD SPECIMENOrdering Facility: [facility] Address: [address] [place] [address] Performed By: #### 5 7021-8 ####[facility] LABIA [id number] [address] [id number] [address] [place] Monocytes (Bld) [#/Vol] 1.18 10*3/uL High <0.87 [facility] Comment on above: Order Comment: Speci men Type: BLOOD SPECIMENOrdering Facility: [facility] Address: [address] [place] [address] Performed By: #### 5 7021-8 ####[facility] LABCLIA [id number] [facility] [id number], [facility] [place] Monocytes/100 WBC (Bld) 9.4 % Normal [facility] Comment on above: Order Comment: Speci men Type: BLOOD SPECIMENOrdering Facility: [facility] Address: [address] [place] [address] Performed By: #### 5 7021-8 ####[facility] LABCLIA [id number] [place] [address] [place] Neutrophils (Bld) [#/Vol] 8.61 10*3/uL High 1.45-7.50 [facility] Comment on above: Order Comment: Speci men Type: BLOOD SPECIMENOrdering Facility: [facility] Address: [address] [place] [address] Performed By: #### 5 7021-8 ####[facility] LABCLIA [id number] [place] [id number] [place] Neutrophils/100 WBC (Bld) 69.0 % Normal [facility] Comment on above: Order Comment: Speci men Type: BLOOD SPECIMENOrdering Facility: [facility] Address: [address] [place] [address] Performed By: #### 5 7021-8 ####[facility] LABCLIA [id number] [place] [id number] [place] Nucleated RBC (Bld) [#/Vol] 10*3/uL Normal <0.01 [facility] Comment on above: Order Comment: Speci men Type: BLOOD SPECIMENOrdering Facility: [facility] Address: [address] [place] [address] Performed By: #### 5 7021-8 ####[facility] LABCLIA [id number] [place] [address] [place] Nucleated RBC/100 WBC (Bld) [Ratio] 0.0 /[address] [facility] Comment on above: Order Comment: Speci men Type: BLOOD SPECIMENOrdering Facility: [facility] Address: [address] [place] [address] Performed By: #### 5 7021-8 ####[facility] LABIA [id number] [place] [address] [place] Platelet mean volume (Bld) [Entitic vol] 9.4 fL Normal 9.0-12.7 [facility] Comment on above: Order Comment: Speci men Type: BLOOD SPECIMENOrdering Facility: [facility] Address: [address] [place] [address] Performed By: #### 5 7021-8 ####[facility] LABIA [id number] [place] [address] [place] Platelets (Bld) [#/Vol] 443 10*3/uL High 150-400 [facility] Comment on above: Order Comment: Speci men Type: BLOOD SPECIMENOrdering Facility: [facility] Address: [address] [place] [address] Performed By: #### 5 7021-8 ####[facility] LABCLIA [id number] [place] [address] [place] RBC (Bld) [#/Vol] 4.55 10*6/uL Normal 3.90-5.20 [facility] Comment on above: Order Comment: Speci men Type: BLOOD SPECIMENOrdering Facility: [facility] Address: [address] [place] [address] Performed By: #### 5 7021-8 ####[facility] LABCLIA [id number] [place] [id number] [place] WBC (Bld) [#/Vol] 12.49 10*3/uL High 3.70-11.00 [facility] Comment on above: Order Comment: Speci men Type: BLOOD SPECIMENOrdering Facility: [facility] Address: [address] [place] [address] Performed By: #### 5 7021-8 ####[facility] LABIA [id number] [place] [address] [place] Comprehensive metabolic 2000 panelon 12-09-2024 Albumin [Mass/Vol] 4.8 g/dL Normal 3.9-4.9 [facility] Comment on above: Order Comment: Speci men Type: BLOOD SPECIMENOrdering Facility: [facility] Address: [address] [place] [address] Performed By: #### L IPNF, 8, 3039-3, 99410-4 ####[facility] LABCLIA [id number] [place] [address] [place] ALP [Catalytic activity/Vol] 169 U/L High 34-123 [facility] Comment on above: Order Comment: Speci men Type: BLOOD SPECIMENOrdering Facility: [facility] Address: [address] [place] [address] Performed By: #### L IPNF, 1797-10, 3039-3, 72708-0 ####[facility] LABCLIA [id number] [place] [id number] [place] ALT [Catalytic activity/Vol] 20 U/L Normal 7-38 [facility] Comment on above: Order Comment: Speci men Type: BLOOD SPECIMENOrdering Facility: [facility] Address: [address] [place] [address] Performed By: #### L IPNF, 1797-10, 3039-3, 18940-0 ####[facility] LABCLIA [id number] [place] [address] [place] Anion gap [Moles/Vol] 16 mmol/L High 8-15 [facility] Comment on above: Order Comment: Speci men Type: BLOOD SPECIMENOrdering Facility: [facility] Address: [address] [place] [address] Performed By: #### L IPNF, 8, 3039-3, 03969-1 ####[facility] LABCLIA [id number] [place] [address] [place] AST [Catalytic activity/Vol] 22 U/L Normal 13-35 [facility] Comment on above: Order Comment: Speci men Type: BLOOD SPECIMENOrdering Facility: [facility] Address: [address] [place] [address] Performed By: #### L IPNF, 1797-10, 3039-3, 10278-2 ####[facility] LABCLIA [id number] [place] [address] [place] Bilirubin [Mass/Vol] 0.2 mg/dL Normal 0.2-1.3 [facility] Comment on above: Order Comment: Speci men Type: BLOOD SPECIMENOrdering Facility: [facility] Address: [address] [place] [address] Performed By: #### L IPNF, 1797-10, 3039-3, 17157-9 ####[facility] LABCLIA [id number] [place] [address] [place] Calcium [Mass/Vol] 11.3 mg/dL High 8.5-10.2 [facility] Comment on above: Order Comment: Speci men Type: BLOOD SPECIMENOrdering Facility: [facility] Address: [address] [place] [address] Performed By: #### L IPNF, 1797-10, 3039-3, 30448-0 ####[facility] LABCLIA [id number] [place] [id number] [place] Chloride [Moles/Vol] 102 mmol/L Normal 98-107 [facility] Comment on above: Order Comment: Speci men Type: BLOOD SPECIMENOrdering Facility: [facility] Address: [address] [place] [address] Performed By: #### L IPNF, 1798-8, 3040-3, 61938-7 ####[facility] LABCLIA [id number] [place] [address] [place] CO2 [Moles/Vol] 23 mmol/L Normal 22-30 [facility] Comment on above: Order Comment: Speci men Type: BLOOD SPECIMENOrdering Facility: [facility] Address: [address] [place] [address] Performed By: #### L IPNF, 1798-8, 3040-3, 61254-3 ####[facility] LABCLIA [id number] [place] [address] [place] Creatinine [Mass/Vol] 1.00 mg/dL High 0.58-0.96 [facility] Comment on above: Order Comment: Speci men Type: BLOOD SPECIMENOrdering Facility: [facility] Address: [address] [place] [address] Performed By: #### L IPNF, 8-8, 3040-3, 88443-6 ####[facility] LABCLIA [id number] [place] [address] [place] eGFRcr SerPlBld CKD-EPI 2020 67 mL/min/1.73m??? Normal >=60 [facility] Comment on above: Order Comment: Speci men Type: BLOOD SPECIMENOrdering Facility: [facility] Address: [address] [place] [address] Result Comment: Patti mated Glomerular Filtration Rate (eGFR) is calculated using the 2020 CKD-EPI creatinine equation. This equation utilizes serum creatinine, sex, and age as parameters. The creatinine assay has traceable calibration to isotope dilution-mass spectrometry. Refer to KDIGO guidelines for clinical interpretation. In patients with unstable renal function, e.g. those with acute kidney injury, the eGFR may not accurately reflect actual GFR. Performed By: #### L IPELIZABETH, 1797-10, 3039-05, ####[facility] LABCLIA [id number] [address] [address] [place] Glucose [Mass/Vol] 112 mg/dL High 74-99 [facility] Comment on above: Order Comment: Leticia her Type: BLOOD SPECIMENOrdering Facility: [facility] Address: [address] [place] [id number] Result Comment: The [place] Diabetes Association (ADA) provides guidance for cutoff values for fasting glucose and random glucose. The ADA defines fasting as no caloric intake for at least 8 hours. Fasting plasma glucose results between 100 to 125 mg/dL indicate increased risk for diabetes (prediabetes). Fasting plasma glucose results greater than or equal to 126 mg/dL meet the criteria for diagnosis of diabetes. In the absence of unequivocal hyperglycemia, results should be confirmed by repeat testing. In a patient with classic symptoms of hyperglycemia or hyperglycemic crisis, random plasma glucose results greater than or equal to 200 mg/dL meet the criteria for diagnosis of diabetes. Reference: Standards of Medical Care in Diabetes 2016, [place] Diabetes Association. Diabetes Care. 2016.39(Suppl 1). Performed By: #### L IPELIZABETH, 1797-10, 3039-05, ####[facility] LABCLIA [id number] [address] [address] [place] Potassium [Moles/Vol] 4.4 mmol/L Normal 3.7-5.1 [facility] Comment on above: Order Comment: Leticia her Type: BLOOD SPECIMENOrdering Facility: [facility] Address: [address] [place] [address] Performed By: #### L IPNF, 1797-10, 3039-05, ####[facility] LABCLIA [id number] [address] [address] [place] Protein [Mass/Vol] 8.3 g/dL High 6.3-8.0 [facility] Comment on above: Order Comment: Speci men Type: BLOOD SPECIMENOrdering Facility: [facility] Address: [address] [place], [place] [address] Performed By: #### L IPNF, 1798-8, 3040-3, 98414-1 ####[facility] LABCLIA [id number] [address] [address] [place] Sodium [Moles/Vol] 141 mmol/L Normal 136-144 [facility] Comment on above: Order Comment: Speci men Type: BLOOD SPECIMENOrdering Facility: [facility] Address: [address] [place] [address] Performed By: #### L IPNF, 8-8, 3040-3, 77438-9 ####[facility] LABCLIA [id number] [place] [id number] [place] Urea nitrogen [Mass/Vol] 14 mg/dL Normal 7-21 [facility] Comment on above: Order Comment: Speci men Type: BLOOD SPECIMENOrdering Facility: [facility] Address: [address] [place] [address] Performed By: #### L IPNF, 8, 3040-3, 20254-9 ####[facility] LABCLIA [id number] [place] [id number] [place] ED NOTEon 12-09-2024 ED NOTE HNO ID: [id number] Author: MAGNO JIMENEZ RN Service: ? Author Type: Registered Nurse Type: ED Notes Filed: 12/09/2024 19:13 Note Text: Received bedside report from Jefry AMAYA, assumed care at this time [facility] ED NOTE HNO ID: [id number] Author: JEFRY THOMPSON RN Service: Emergency Medicine Author Type: Registered Nurse Type: ED Notes Filed: 12/09/2024 18:21 Note Text: Pt requesting something for nausea, MD notified. Pt unable to provide urine sample at this time, pt aware of need [facility] ED PROGRESS NOTE (PROVIDER)o n 12-09-2024 ED PROGRESS NOTE (PROVIDER) HNO ID: [id number] Author: DIOMEDES PAZ MD Service: Emergency Medicine Author Type: Resident Type: ED PROGRESS NOTE (PROVIDER) Filed: 12/09/2024 23:08 Note Text: ----- Attestation signed by Diomedes Paz MD at 12/09/2024 11:08 PM I have seen and evaluated the patient and discussed the case with the resident physician. I agree with the assessment and plan as documented in the resident?s note. Agree. Patient wanted to leave. I explained that multiple medication had been prescribed and she was able to choose which medications she would like to try. She was agreeable to this and will plan to stay for admission. (K86.1) Chronic pancreatitis (HCC) (primary encounter diagnosis) (R63.0) Loss of appetite (R11.2) Nausea and vomiting, unspecified vomiting type (Z90.49) S/P cholecystectomy (G89.4) Chronic pain syndrome ----- ED CONTINUATION OF CARE NOTE Code Status: Full Code Patient called me to bedside stating her desire to leave. Offered multimodal pain therapy and anti emetics. Patient declines and reaffirms desire to leave. She has been fluid resuscitated. Low concern for acute or emergent process given CT Abd yesterday. Shared decision making made to discharge patient from ED with GI follow up. ADDENDUM: Patient decided to stay. Proceeding with admission as previously planned. Clinical Impressions as of 12/09/242135 Chronic pancreatitis (HCC) Loss of appetite Nausea and vomiting, unspecified vomiting type S/P cholecystectomy Chronic pain syndrome Medical Decision Making SIGNATURE: Trevor Lee MD PATIENT NAME: Chioma Rainey DATE: December 09, 2024 TIME: 9:36 PM PAGER/CONTACT #: Karen [facility] ED PROV NOTEon 12-09-2024 ED PROV NOTE HNO ID: [id number] Author: DIOMEDES PAZ MD Service: Emergency Medicine Author Type: Resident Type: ED Provider Notes Filed: 12/09/2024 20:50 Note Text: ----- Attestation signed by Diomedes Paz MD at 12/09/2024 8:50 PM Attending Note I evaluated the patient and personally participated in the garcia components. I agree with the resident's findings and plan as documented and have discussed the case and management of the patient's care with the resident. 54-year-old female with remote history of alcohol use and chronic pancreatitis who presents today with epigastric pain. She is followed by gastroenterology here at [facility]. Was seen in emergency department yesterday with a negative CT scan. She wanted underwent a celiac plexus block without any improvement of her pain. She returns back to the emergency department significant pain that is unable to be controlled at home as well as persistent vomiting. I agree with the exam. Considered appy, pyelo, jeffy, pancreatitis, uti, gerd Patient with signs and symptoms of chronic pancreatitis in the setting of acute on chronic pain exacerbation. Her nerve block did not work this time. She states it normally last for upwards of a year. She was seen in emergency department yesterday and discharged but returns back today for intractable pain with persistent vomiting. No bleeding in her vomit. Laboratory values within normal limits for her baseline. Will place admission for general medicine for acute on chronic pain management as well as chronic pancreatitis. (R63.0) Loss of appetite (primary encounter diagnosis) (K86.1) Chronic pancreatitis (HCC) (R11.2) Nausea and vomiting, unspecified vomiting type (Z90.49) S/P cholecystectomy Signature: Diomedes Paz MD Date: 12/09/2024 Time: 8:48 PM ----- ED Provider Note Patient Name: Chioma Rainey : 1970 SERVICE DATE: 12/09/24 History Patient presents with: Pancreatitis: Pt presented to ED complaining of n/v pt reporting chronic pancreatitis is having a flare up denies any alcohol use. 54 y F pmhx remote EtOH use, chronic pancreatitis, s/p cholecystectomy (2011) who presents with epigastric pain. Follows with GI here at [facility]. Last saw Lindsey Willard 11/02/2024. Recommended restart creon and elavil. Also ordered endoscopic US guided celiac plexus block. Underwent block 11/17 with no relief. Recent admission at [facility] for flare up of her pancreatitis. Dc on 11/29, felt ok at that time and was tolerating PO. Symptoms started to worsen about a week ago and much worse over the past 3 days. Last tolerated PO about 1 week ago. Has significant epigastric pain that radiates to back and LLQ, also n/v. Emesis is NBNB. Has red emesis right now but just had a monroy ensure. No red emesis prior to this red liquid. Last etoh 12 years ago. Not currently on creon because she is not eating. She was at [facility] yesterday for this current episode. CT at that time with no e/o acute pancreatitis. Did show 1.9 cm focal mucosal soft tissue thickening at ampulla of vater, recommended MRI abd w contrast and MRCP. Patient elected to leave the ED given no emergent findings. Came here bc this is where she gets her GI care. She has a GI appt next week. BP 120/93 Pulse (!) 104 Temp 36.3 ?C (97.4 ?F) (Temporal) Resp 16 SpO2 100% Labs with WBC 12.49 with left shift, Cr 1.00 (baseline ~0.6), Ca 11.3, ALP 169 AST/ALT wnl, lipase 39. PAST MEDICAL HISTORY Diagnosis Date Epigastric pain Lumbar disc disease Microcytic anemia PAST SURGICAL HISTORY Procedure Laterality Date COLONOSCOPY FLX DX W/COLLJ SPEC WHEN PFRMD ESOPHAGOGASTRODUODENOSCOP Y TRANSORAL DIAGNOSTIC x2 LAPAROSCOPY SURG CHOLECYSTECTOMY Mar Cholecystectomy, lap PAST SURGICAL HISTORY OF 2013 Hysterectomy FAMILY HISTORY Problem Relation Age of Onset Diabetes Mother Hypertension Father Stroke Paternal Grandmother Stroke Paternal Grandfather Social History[1] ALLERGIES Allergen Reactions Fentanyl Hives Prochlorperazine Anaphylaxis, Hives Enoxaparin Itching, Rash Haldol [Haloperidol* Other: See Comments Ibuprofen Other: See Comments Morphine Hives Penicillins Other: See Comments Tramadol Other: See Comments Metoclopramide Other: See Comments Review of Systems Constitutional: Positive for appetite change. Negative for chills and fever. HENT: Negative. Eyes: Negative. Respiratory: Negative. Cardiovascular: Negative. Gastrointestinal: Positive for abdominal pain, nausea and vomiting. Negative for abdominal distention, blood in stool, constipation and diarrhea. Endocrine: Negative. Genitourinary: Negative. Musculoskeletal: Negative. Allergic/Immunologic: Negative. Hematological: Negative. Psychiatr (more content not included)... Normal [facility] ED Triage Noteon 12-09-2024 ED Triage Note HNO ID: [id number] Author: MILLER GALLAGHER MD Service: Emergency Medicine Author Type: Physician Type: ED Triage Notes Filed: 12/09/2024 16:05 Note Text: ED TRIAGE PROVIDER NOTE Patient Name: Chioma Rainey Service Date: 12/09/24 BRIEF HPI: This is a 54 year old female who presents to the ED with: 54F with hx or remote etoh use, chronic pancreatitis with multiple prior admissions for the same presents for epigastric abd pain x 4 days. Severe, does not move or radiate, nausea with multiple episodes of vomiting. No school changes, urinary or vaginal symptoms. Recently admitted at [facility] for the same, dc 2 weeks ago. Several admissions this year for the same. No fever, CP, SOB BRIEF EXAM: NAD Awake and Alert Non labored breathing Mild epigastric and RUQ tenderness, no guarding or rebound tenderness INITIAL WORKUP AND DECISION MAKING: Orders Placed This Encounter COMP METABOLIC PANEL (BMP+LFT) LIPASE BLD CBC + DIFF Urinalysis w Microscopic, reflex Culture Amylase Sepsis Lactate with (1) Reflex SIGNATURE: Miller Gallagher MD Normal [facility] LIPID PANEL, NONFASTINGon Cholesterol [Mass/Vol] 272 mg/dL High <200 [facility] Comment on above: Order Comment: Speci men Type: BLOOD SPECIMENOrdering Facility: [facility] Address: [address] [place] [address] Result Comment: <200 mg/dL, Desirable 200-239 mg/dL, Borderline high >239 mg/dL, High Performed By: #### L MALINI, 8, 3039-3, 33332-7 ####[facility] LABCLIA [id number] [place] [address] [place] HDL CHOLESTEROL, NF 42 mg/dL Normal >39 [facility] Comment on above: Order Comment: Speci arden Type: BLOOD SPECIMENOrdering Facility: [facility] Address: [address] [place] [address] Result Comment: 40-5 9 mg/dL, Acceptable >59 mg/dL, High: Negative risk factor for coronary heart disease <40 mg/dL, Low: Positive risk factor for coronary heart disease Performed By: #### L IPELIZABETH, 1797-10, 3039-3, 94177-8 ####[facility] LABCLIA [id number] [place] [id number] [place] LDL CHOLESTEROL CALCULATED, NF 193 mg/dL High <100 [facility] Comment on above: Order Comment: Jessicai men Type: BLOOD SPECIMENOrdering Facility: [facility] Address: [address] [place] [address] Result Comment: <100 mg/dL, Optimal 100-129 mg/dL, Near optimal/above optimal 130-159 mg/dL, Borderline high 160-189 mg/dL, High >189 mg/dL, Very high Secondary prevention optimal LDL Cholesterol levels are recommended to be <70 mg/dL LDL cholesterol is calculated using the Lyon-NIH equation. Performed By: #### L MALINI, 1797-10, 3, ####[facility] LABCLIA [id number] [address] [address] [place] LDL/HDL RATIO, NF 4.60 mg/dL High <2.54 [facility] Comment on above: Order Comment: Speci men Type: BLOOD SPECIMENOrdering Facility: [facility] Address: [address] [place] [address] Result Comment: Refe rence: 1. National Cholesterol Education Program ATP III Guideline At-A-Glance Quick Desk Reference: National Heart, Lung, and Blood [place]. National Institutes of Health. 2001: NIH Publication No. 01-3305. 2. An International Atherosclerosis Society position paper: global recommendations for the management of dyslipidemia: executive summary, Atherosclerosis. 2014: 232(2):410-413. Performed By: #### L MALINI, 1797-10, 3039-05, ####[facility] LABCLIA [id number] [address] [place] NON HDL CHOL, NF 230 mg/dL High <130 [facility] Comment on above: Order Comment: Leticia arden Type: BLOOD SPECIMENOrdering Facility: [facility] Address: [address] [place] [address] Result Comment: <130 mg/dL, Optimal 130-159 mg/dL, Near optimal/above optimal 160-189 mg/dL, Borderline high 190-219 mg/dL, High >219 mg/dL, Very high Secondary prevention optimal non HDL Cholesterol levels are recommended to be <100 mg/dL Performed By: #### L MALINI, 1797-10, 3039-05, ####[facility] LABCLIA [id number] [address] [address] [place] T CHOL/HDL RATIO NF 6.48 mg/dL High <5.10 [facility] Comment on above: Order Comment: Speci men Type: BLOOD SPECIMENOrdering Facility: [facility] Address: [address] [place] [address] Performed By: #### L IPNF, 1797-10, 3039-3, 62795-6 ####[facility] LABCLIA [id number] [address] [address] [place] TRIGLYCERIDES, NF 193 mg/dL High <150 [facility] Comment on above: Order Comment: Speci men Type: BLOOD SPECIMENOrdering Facility: [facility] Address: [address] [place] [address] Result Comment: <150 mg/dL, Normal 150-199 mg/dL, Borderline high 200-499 mg/dL, High >499 mg/dL, Very high Performed By: #### L IPNF, 1797-10, 3, 81749-1 ####[facility] LABCLIA [id number] [place] [address] [place] VLDL CHOLESTEROL, NF 40 mg/dL High <30 [facility] Comment on above: Order Comment: Speci men Type: BLOOD SPECIMENOrdering Facility: [facility] Address: [address] [place] [address] Performed By: #### L IPNF, 1797-10, 3, 10610-0 ####[facility] LABCLIA [id number] [place] [id number] [place] Lipase SerPl-cCncon 12-10-19 25 Lipase [Catalytic activity/Vol] 39 U/L Normal 16-61 [facility] Comment on above: Order Comment: Speci men Type: BLOOD SPECIMENOrdering Facility: [facility] Address: [address] [place] [address] Performed By: #### L IPNF, 1797-10, 3, 87792-4 ####[facility] LABCLIA [id number] [place] [id number] [place] PHOSPHATIDYLETHANOL (PETH)on 12-09-2024 EER PETH See Note Normal [facility] Comment on above: Order Comment: Speci men Type: BLOOD SPECIMENOrdering Facility: [facility] Address: [address] [place] [address] Result Comment: Auth orized individuals can access the [employer] Enhanced Report with an [employer] Connect account using the following link. Your local lab can assist you in obtaining the patient report if you don't have a Connect account. [email or web address] Performed By: #### P ETH ####[facility] [id number] [place] [address] PETH 16:0/18.2 (PLPETH) <[address] [facility] Comment on above: Order Comment: Speci men Type: BLOOD SPECIMENOrdering Facility: [facility] Address: [address] [place] [address] Result Comment: Refe rence ranges are not well established. Performed By: #### P ETH ####[facility]IESCLIA [id number] [place] [address] PETH 16:0/18:1 (POPETH) <[address] [facility] Comment on above: Order Comment: Speci men Type: BLOOD SPECIMENOrdering Facility: [facility] Address: [address] [place] [address] Result Comment: PEth 16:0/18:1 (POPEth) Less than 10 ng/mL............Not detected Less than 20 ng/mL............Abstinence or light alcohol consumption 20 - 200 ng/mL................Moderate alcohol consumption Greater than 200 ng/mL........Heavy alcohol consumption or chronic alcohol use (Reference: Brie Singh and Kimberly Kellogg 2018 J. Forensic Sci) Performed By: #### P ETH ####[facility]IES[facility]IA [id number] [place] [address] PETH INTERPRETATION See Comment Normal [facility] Comment on above: Order Comment: Speci men Type: BLOOD SPECIMENOrdering Facility: [facility] Address: [address] [place] [address] Result Comment: Phos phatidylethanol (PEth) is a group of phospholipids formed in the presence of ethanol, phospholipase D and phosphatidylcholine. PEth is known to be a direct alcohol biomarker. The predominant PEth homologues are PEth 16:0/18:1 (POPEth) and PEth 16:0/18:2 (PLPEth), which account for 37-46% and 26-28% of the total PEth homologues, respectively. PEth is incorporated into the phospholipid membrane of red blood cells and has a general half-life of 4-10 days and a window of detection of 2-4 weeks. However, the window of detection is longer in individuals who chronically or excessively consume alcohol. The limit of quantification is 10 ng/mL. Serial monitoring of PEth may be helpful in monitoring alcohol abstinence over time. PEth results should be interpreted in the context of the patient's clinical and behavioral history. Patients with advanced liver disease may have falsely elevated PEth concentrations (Corie RAMSEY et al 2018, Alcoholism Clinical & Experimental Research). This test was developed and its performance characteristics determined by [facility]. It has not been cleared or approved by the U.S. Food and Drug Administration. This test was performed in a CLIA-certified laboratory and is intended for clinical purposes. Performed By: [facility] [address] [place] [address] Caramel Cutter Helper: Kevyn Parmar MD, PhD CLIA Number: [id number] Performed By: #### P ETH ####[facility] LABORATORIESIA [id number] [place] [address] SEPSIS LACTATE W/ REFLEX (IN ITIAL)on 12-09-2024 Lactate [Moles/Vol] 1.1 mmol/L Normal <=2.0 [facility] Comment on above: Order Comment: Speci men Type: BLOOD SPECIMENOrdering Facility: [facility] Address: [address] [place] [address] Performed By: #### S LACTR ####[facility] LABCLIA [id number] [address] [address] [place] CBC WITH AUTO DIFFERENTIALon 12-08-2024 BASOPHILS ABSOLUTE COUNT (10*3/UL) BY AUTOMATED COUNT 0.1 10*3/uL Normal 0.0-0.2 [facility] Comment on above: Performed By: #### 8 9579-7, 95770-0, 5643-2, 79253-0, LIVR, 3040-3, CBCA, BMP #### [facility] ([id number]) [address] [place] [address] BASOPHILS RELATIVE PERCENT BY AUTOMATED COUNT 1.0 % Normal [facility] Comment on above: Performed By: #### 8 9579-7, 73122-5, 5643-2, 10893-9, LIVR, 3040-3, CBCA, BMP #### [facility] ([id number]) [address] [place] [address] 77459 CELLAVISION DIFFERENTIAL TYPE AUTOMATED DIFFERENTIAL Normal [facility] Comment on above: Performed By: #### 8 9579-7, 43192-4, 5643-2, 42531-3, LIVR, 3040-3, CBCA, BMP #### [facility] ([id number]) [address] [place] [address] 45468 Eosinophils (Bld) [#/Vol] 0.1 10*3/uL Normal 0.0-0.4 [facility] Comment on above: Performed By: #### 8 9579-7, 05376-9, 5643-2, 28785-9, LIVR, 3040-3, CBCA, BMP #### [facility] ([id number]) [address] [place] [address] 90961 EOSINOPHILS RELATIVE PERCENT BY AUTOMATED COUNT 0.6 % Normal [facility] Comment on above: Performed By: #### 8 9579-7, 72918-6, 5643-2, 80249-4, LIVR, 3040-3, CBCA, BMP #### [facility] ([id number]) [address] [place] [address] 42896 Erythrocyte distribution width (RBC) [Ratio] 13.1 % Normal 11.5-15 [facility] Comment on above: Performed By: #### 8 9579-7, 53650-2, 5643-2, 26815-0, LIVR, 3040-3, CBCA, BMP #### [facility] ([id number]) [address] [place] [address] 04875 Hematocrit (Bld) [Volume fraction] 44.9 % Normal 35-47 [facility] Comment on above: Performed By: #### 8 9579-7, 20823-9, 5643-2, 96704-9, LIVR, 3040-3, CBCA, BMP #### [facility] ([id number]) [address] [place] [address] 82934 Hemoglobin (Bld) [Mass/Vol] 15.4 g/dL Normal 11.7-15.5 [facility] Comment on above: Performed By: #### 8 9579-7, 94894-6, 5643-2, 57701-4, LIVR, 3040-3, CBCA, BMP #### [facility] ([id number]) [address] [place] [address] 66469 LYMPHOCYTES ABSOLUTE COUNT (10*3/UL) BY AUTOMATED COUNT 3.2 10*3/uL Normal 1.0-3.5 [facility] Comment on above: Performed By: #### 8 9579-7, 06111-7, 5643-2, 63472-0, LIVR, 3040-3, CBCA, BMP #### [facility] ([id number]) [address] [place] [address] 52744 LYMPHOCYTES RELATIVE PERCENT BY AUTOMATED COUNT 27.5 % Normal [facility] Comment on above: Performed By: #### 8 9579-7, 77190-9, 5643-2, 59829-9, LIVR, 3040-3, CBCA, BMP #### [facility] ([id number]) [address] [place] [address] 86511 MCH (RBC) [Entitic mass] 32.4 pg Normal 27-34 [facility] Comment on above: Performed By: #### 8 9579-7, 14712-3, 5643-2, 62198-4, LIVR, 3040-3, CBCA, BMP #### [facility] ([id number]) [address] [place] [address] 09173 MCHC (RBC) [Mass/Vol] 34.3 g/dL Normal 32-36 [facility] Comment on above: Performed By: #### 8 9579-7, 02948-1, 5643-2, 54724-9, LIVR, 3040-3, CBCA, BMP #### [facility] ([id number]) [address] [place] [address] 57181 MCV (RBC) [Entitic vol] 95 fL Normal 80-100 [facility] Comment on above: Performed By: #### 8 9579-7, 79988-8, 5643-2, 41079-1, LIVR, 3040-3, CBCA, BMP #### [facility] ([id number]) [address] [place] [address] 92253 MONOCYTES ABSOLUTE COUNT (10*3/UL) BY AUTOMATED COUNT 0.9 10*3/uL Normal 0.0-0.9 [facility] Comment on above: Performed By: #### 8 9579-7, 07883-5, 5643-2, 52813-3, LIVR, 3040-3, CBCA, BMP #### [facility] ([id number]) [address] [place] [address] 98387 MONOCYTES RELATIVE PERCENT BY AUTOMATED COUNT 8.1 % Normal [facility] Comment on above: Performed By: #### 8 9579-7, 58749-0, 5643-2, 18635-1, LIVR, 3040-3, CBCA, BMP #### [facility] ([id number]) [address] [place] [address] 99312 NEUTROPHILS ABSOLUTE COUNT BY AUTOMATED COUNT 7.3 10*3/uL High 1.5-6.6 [facility] Comment on above: Performed By: #### 8 9579-7, 77516-5, 5643-2, 13700-5, LIVR, 3040-3, CBCA, BMP #### [facility] ([id number]) [address] [place] [address] 38342 NEUTROPHILS RELATIVE PERCENT BY AUTOMATED COUNT 62.8 % Normal [facility] Comment on above: Performed By: #### 8 9579-7, 50032-8, 5643-2, 92613-7, LIVR, 3040-3, CBCA, BMP #### [facility] ([id number]) [address] [place] [address] 08457 Platelet mean volume (Bld) [Entitic vol] 7.8 fL Normal 7-12 [facility] Comment on above: Performed By: #### 8 9579-7, 57492-8, 5643-2, 73293-7, LIVR, 3040-3, CBCA, BMP #### [facility] ([id number]) [address] [place] [address] 95178 Platelets (Bld) [#/Vol] 404 10*3/uL Normal 150-450 [facility] Comment on above: Performed By: #### 8 9579-7, 31817-7, 5643-2, 69057-8, LIVR, 3040-3, CBCA, BMP #### [facility] ([id number]) [address] [place] [address] 94942 RBC COUNT 4.75 X10E12/L Normal 3.8-5.2 [facility] Comment on above: Performed By: #### 8 9579-7, 83501-4, 5643-2, 02834-6, LIVR, 3040-3, CBCA, BMP #### [facility] ([id number]) [address] [place] [address] 40030 WBC (Bld) [#/Vol] 11.6 10*3/uL High 4-11 [facility] Comment on above: Performed By: #### 8 9579-7, 17810-4, 5643-2, 58059-4, LIVR, 3040-3, CBCA, BMP #### [facility] ([id number]) [address] [place] [address] [address]OLIC P[address] [facility] 12-08-2024 Albumin [Mass/Vol] 4.5 g/dL Normal 3.2-5.3 [facility] Comment on above: Performed By: #### 8 9579-7, 60108-9, 5643-2, 05241-5, LIVR, 3040-3, CBCA, BMP #### [facility] ([id number]) [address] [place] [address] 89085 ALP [Catalytic activity/Vol] 156 U/L High 39-130 [facility] Comment on above: Performed By: #### 8 9579-7, 32970-3, 5643-2, 09350-8, LIVR, 3040-3, CBCA, BMP #### [facility] ([id number]) [address] [place] [address] 27107 ALT [Catalytic activity/Vol] 21 U/L Normal <=31 [facility] Comment on above: Performed By: #### 8 9579-7, 07470-3, 5643-2, 23914-9, LIVR, 3040-3, CBCA, BMP #### [facility] ([id number]) [address] [place] [address] 97107 Anion gap [Moles/Vol] 13 mmol/L Normal 5-15 [facility] Comment on above: Performed By: #### 8 9579-7, 11656-6, 5643-2, 28904-3, LIVR, 3040-3, CBCA, BMP #### [facility] ([id number]) [address] [place] [address] 03071 AST [Catalytic activity/Vol] 23 U/L Normal <=41 [facility] Comment on above: Performed By: #### 8 9579-7, 00109-9, 5643-2, 74543-7, LIVR, 3040-3, CBCA, BMP #### [facility] ([id number]) [address] [place] [address] 22299 Bilirubin [Mass/Vol] 0.4 mg/dL Normal 0.3-1.2 [facility] Comment on above: Performed By: #### 8 9579-7, 89671-2, 5643-2, 41241-1, LIVR, 3040-3, CBCA, BMP #### [facility] ([id number]) [address] [place] [address] 82253 Calcium [Mass/Vol] 10.3 mg/dL Normal 8.5-10.5 [facility] Comment on above: Performed By: #### 8 9579-7, 42659-9, 5643-2, 50219-2, LIVR, 3040-3, CBCA, BMP #### [facility] ([id number]) [address] [place] [address] 24549 Chloride [Moles/Vol] 104 mmol/L Normal 98-109 [facility] Comment on above: Performed By: #### 8 9579-7, 45581-1, 5643-2, 45403-3, LIVR, 3040-3, CBCA, BMP #### [facility] ([id number]) [address] [place] [address] CO2 [Moles/Vol] 21 mmol/L Low 22-32 [facility] Comment on above: Performed By: #### 8 9579-7, 24364-3, 5643-2, 89486-3, LIVR, 3040-3, CBCA, BMP #### [facility] ([id number]) [address] [place] [address] 22990 Creatinine [Mass/Vol] 0.79 mg/dL Normal 0.40-1.00 [facility] Comment on above: Result Comment: METH OD TRACEABLE TO IDMS STANDARD Performed By: #### 8 9579-7, 24126-1, 5643-2, 66428-2, LIVR, 3040-3, CBCA, BMP #### [facility] ([id number]) [address] [place] [address] 40214 GFR/1.73 sq M.predicted among non-blacks MDRD (S/P/Bld) [Vol rate/Area] 88 mL/min/{1.73_m2} Normal >=60 [facility] Comment on above: Result Comment: eGFR not reported due to non-numeric value for Creatinine. Reported eGFR is based on the CKD-EPI 2020 equation that does not use a race coefficient. Performed By: #### 8 9579-7, 72163-9, 5643-2, 02203-8, LIVR, 3040-3, CBCA, BMP #### [facility] ([id number]) [address] [place] [address] 38270 Glucose [Mass/Vol] 114 mg/dL High 65-99 [facility] Comment on above: Performed By: #### 8 9579-7, 77859-3, 5643-2, 01770-5, LIVR, 3040-3, CBCA, BMP #### [facility] ([id number]) [address] [place] [address] 44254 Potassium [Moles/Vol] 3.8 mmol/L Normal 3.5-5.0 [facility] Comment on above: Performed By: #### 8 9579-7, 65361-3, 5643-2, 27517-7, LIVR, 3040-3, CBCA, BMP #### [facility] ([id number]) [address] [place] [address] 17848 Protein [Mass/Vol] 8.5 g/dL High 6.0-8.0 [facility] Comment on above: Performed By: #### 8 9579-7, 87011-8, 5643-2, 53822-2, LIVR, 3040-3, CBCA, BMP #### [facility] ([id number]) [address] [place] [address] 80031 Sodium [Moles/Vol] 138 mmol/L Normal 134-146 [facility] Comment on above: Performed By: #### 8 9579-7, 72707-3, 5643-2, 47992-0, LIVR, 3040-3, CBCA, BMP #### [facility] ([id number]) [address] [place] [address] 16209 Urea nitrogen [Mass/Vol] 11 mg/dL Normal 5-23 [facility] Comment on above: Performed By: #### 8 9579-7, 31302-3, 5643-2, 21087-7, LIVR, 3040-3, CBCA, BMP #### [facility] ([id number]) [address] [place] [address] ABDOMEN AND PELVIS W CONT on 12-08-2024 CT ABDOMEN AND PELVIS W CONT CT [...] the ampulla of Vater. Further characterization with contrast-enhanced abdomen MRI and MRCP versus direct visualization is advised on nonemergent basis. Approved by Resident Chi Brooks MD on 12/08/2024 9:58 PM I, Grover Arce MD have personally reviewed the image(s) and agree with and/or edited the report Finalized by Grover Arce MD on 12/08/2024 10:27 PM Normal [facility] LACTATE W/ REFLEXon 12-09-19 25 LACTATE W/REFLEX 1.4 mmol/L Normal 0.4-2.0 [facility] Comment on above: Order Comment: Resul t did not trigger repeat Lactate,re-order if needed. Performed By: #### 8 9579-7, 05883-2, 5643-2, 54331-3, LIVR, 3040-3, CBCA, BMP #### [facility] ([id number]) [address] [place] [address] 73272 LIPASEon 12-08-2024 Lipase [Catalytic activity/Vol] 66 U/L High 17-40 [facility] Comment on above: Performed By: #### 8 9579-7, 57713-5, 5643-2, 96594-1, LIVR, 3040-3, CBCA, BMP #### [facility] ([id number]) [address] [place] [address] 24935 MAGNESIUMon 12-08-2024 Magnesium [Mass/Vol] 2.2 mg/dL Normal 1.8-2.6 [facility] Comment on above: Performed By: #### 8 9579-7, 30516-9, 5643-2, 33448-0, LIVR, 3040-3, CBCA, BMP #### [facility] ([id number]) [address] [place] [address] 35192 Discharge Note-Nursingon Discharge Note-Nursing Discharge Note-Nu rsing I accessed this chart because [facility] ER called, this pt is currently at their ER and the provider was requesting the records of the pt's stay here. A pt signature authorizing the share of this info was collected via FAX. Normal [facility] Discharge Note-Nursingon Discharge Note-Nursing Discharge Note-Nu rsing CHIOMA ARCINIEGA :1970 Visit Date:11/24/2024 Inpatient Discharge Instructions Your Care Team Admitting Physician - Geno Martin MD Reason for Your Visit Nausea, vomitting, abdominal pain Your Diagnosis Acute on chronic pancreatitis Leukocytosis History of alcohol use Smoker Abdominal pain Abdominal problem Nausea This Is Your Medications List acetaminophen-hydrocodone (Hitterdal 325 mg-5 mg oral tablet) amitriptyline (amitriptyline [...] When Why Instructions Next Dose New acetaminophen-hydrocodone (Hitterdal 325 mg-5 mg oral tablet) 1 Tablets By Mouth Every 6 hours as needed for for pain Acute on chronic pancreatitis Duration: 5 Days Pickup at [facility] Take as needed every 6 hours for pain New pantoprazole (Pantoprazole [address] Tab) 1 Tablets By Mouth Every day Duration: 30 Days Pickup at [facility] 11/30 @9am Unchanged amitriptyline (amitriptyline [...] a day 2pm and 9pm Pharmacy Information [facility]: [address] [place], [place] [id number] [phone] Test Results CBC BMP WBC: 8.2 E9/L [...] It often gets worse after you eat. (more content not included)... Normal [facility] Inpatient Clinical Summaryon 11-29-2024 Inpatient Clinical Summary Inpatient Clinical Summary [place] [address] Clinical Summary Person Information: Name: CHIOMA ARCINIEGA Age: 54 Years : 1970 Sex: Female PCP: NONE, XXXX Marital Status: Race: White Ethnicity: Non- or Language: Ghanaian Visit Id: Visit Reason: Abdominal problem; Nausea; Abdominal pain; SEVERE ABD PAIN, N/V Speciality: Acuity: Enc Type: Inpatient Med Service: Medical Arrival: 11/24/2024 20:08:05 Discharge: Dispo Type: Admitted as IP to this Hosp Address: [address] [place] [id number] Provider Notes: Diagnosis: 1:Acute on chronic pancreatitis; [...] Documented This Visit Final Med List: acetaminophen-hydrocodone (Hitterdal 325 mg-5 mg oral tablet) 1 Tablets [...] XXXX NONE , [place] Patient Education Information: Normal [facility] Inpatient Patient Summaryon 11-29-2024 Inpatient Patient Summary Inpatient Patient Summary [place] [id number] Patient Discharge Instructions PERSON INFORMATION Name: CHIOMA ARCINIEGA Date of : 1970 Current Date: 11/29/2024 09:03:16 PHYSICIANS Admitting Physician: Geno Martin MD Primary Care Physician: NONE, XXXX PCP Phone Number: Comment: Discharge Diagnosis: 1:Acute [...] to find a nearby participating provider. Comment: I, CHIOMA ARCINIEGA, have received the attached patient education materials/instructions and have verbalized understanding: Patient Signature ____ Date Clinican/Nurse Signature Date HERE ARE THE MEDICATION CHANGES THAT OCCURRED DURING YOUR HOSPITAL STAY New Medications [facility], [address] [place], [place] [id number], [phone] acetaminophen-hydrocodone (Hitterdal 325 mg-5 mg oral tablet) 1 Tablets [...] THIS WITH YOU AT ALL TIMES. acetaminophen-hydrocodone (Hitterdal 325 mg-5 mg oral tablet) 1 Tablets [...] Leaflets: You may receive a survey from [employer] asking you to rate your care experience. Your feedback is important and will help us understand what we do well and how we can improve the quality of care we provide to you, your loved ones and our community. It???s an honor to serve you. Thank you for choosing [facility] Normal [facility] BMPon 11-28-2024 Anion gap [Moles/Vol] 8 mmol/L Normal 6-16 [place] Comment on above: Performed By: #### 2 860564 #### [facility] [address] [place] [address] BUN/Creat Ratio 7 No Units Low 10-20 [facility] Comment on above: Performed By: #### 2 029196 #### [facility] [address] [place] [address] Calcium [Mass/Vol] 8.5 mg/dL Low 8.9-11.1 [facility] Comment on above: Performed By: #### 2 113286 #### [facility] [address] [place] [address] Chloride [Moles/Vol] 110 mmol/L Normal 101-111 [facility] Comment on above: Performed By: #### 2 520834 #### [facility] [address] [place] [address] CO2 [Moles/Vol] 24 mmol/L Normal 21-31 [facility] Comment on above: Performed By: #### 2 009156 #### [facility] [address] [place] [address] Creatinine [Mass/Vol] 0.7 mg/dL Normal 0.5-1.3 [place] Comment on above: Performed By: #### 2 362143 #### [facility] [address] [place] [address] Glucose [Mass/Vol] 99 mg/dL Normal 55-199 [facility] Comment on above: Performed By: #### 2 654532 #### [facility] [address] [place] [address] Potassium [Moles/Vol] 3.9 mmol/L Normal 3.5-5.3 [facility] Comment on above: Performed By: #### 2 986266 #### [facility] [address] [place] [address] Sodium [Moles/Vol] 138 mmol/L Normal 135-145 [facility] Comment on above: Performed By: #### 2 035922 #### [facility] [address] [place] [address] Urea nitrogen [Mass/Vol] 5 mg/dL Normal 5-21 [facility] Comment on above: Performed By: #### 2 872828 #### [facility] [address] [place] [address] Extra Salbador 11-28-2024 WB Tube Collected Yes Invalid Interpretation Code [facility] Comment on above: Performed By: #### 1 [id number] #### [facility] [address] [place] [address] Interdisciplinary Note - Dwayne e Manageron 11-28-2024 Interdisciplinary Note - Technician [employer] Interdisciplinary Note - Technician [employer] CM followed up with patient at bedside. Patient is form home with and family. Patient continues to deny any additional discharge needs and will transport home at discharge. CM rounded with attending Dr Guido and possible DC tomorrow pending progress. CM will continue to follow. Normal [facility] Comment on above: Result Comment: Elec tronically Signed By: Lara Wilson\Date and Time Signed: 11/28/24 12:19 EDT Lipase Levelon 11-28-2024 Lipase Lvl 102 unit/L High 13-58 [facility] Comment on above: Performed By: #### 2 234009 #### [facility] [address] [place] [address] eGFRon 11-28-2024 eGFR 102 mL/min/1.73 m2 Normal >=59 [facility] Comment on above: Performed By: #### 1 6302491 #### [facility] [address] [place] [address] BMPon 11-27-2024 Anion gap [Moles/Vol] 7 mmol/L Normal 6-16 [place] Comment on above: Performed By: #### 2 890975 #### [facility] [address] [place] [address] BUN/Creat Ratio 9 No Units Low 10-20 [facility] Comment on above: Performed By: #### 2 866165 #### [facility] [address] [place] [address] Calcium [Mass/Vol] 8.6 mg/dL Low 8.9-11.1 [facility] Comment on above: Performed By: #### 2 294466 #### [facility] [address] [place] [address] Chloride [Moles/Vol] 109 mmol/L Normal 101-111 [facility] Comment on above: Performed By: #### 2 258534 #### [facility] [address] [place] [address] CO2 [Moles/Vol] 28 mmol/L Normal 21-31 [facility] Comment on above: Performed By: #### 2 326197 #### [facility] [address] [place] [address] Creatinine [Mass/Vol] 0.7 mg/dL Normal 0.5-1.3 [place] Comment on above: Performed By: #### 2 249528 #### [facility] [address] [place] [address] Glucose [Mass/Vol] 86 mg/dL Normal 55-199 [facility] Comment on above: Performed By: #### 2 335415 #### [facility] [address] [place] [address] Potassium [Moles/Vol] 4.2 mmol/L Normal 3.5-5.3 [place] Comment on above: Performed By: #### 2 027019 #### [facility] [address] [place] [address] Sodium [Moles/Vol] 140 mmol/L Normal 135-145 [facility] Comment on above: Performed By: #### 2 196600 #### [facility] [address] [place] [address] Urea nitrogen [Mass/Vol] 6 mg/dL Normal 5-21 [facility] Comment on above: Performed By: #### 2 248976 #### [facility] [address] [place] [address] CBC w/Indiceson 11-27-2024 Erythrocyte distribution width (RBC) [Ratio] 12.9 % Normal 10.9-14.2 [facility] Comment on above: Performed By: #### 2 099499 #### [facility] [address] [place] [address] Hematocrit (Bld) [Volume fraction] 33.9 % Low 34.0-46.0 [facility] Comment on above: Performed By: #### 2 491317 #### [facility] [address] [place] [address] Hemoglobin (Bld) [Mass/Vol] 11.5 g/dL Low 12.0-16.0 [facility] Comment on above: Performed By: #### 2 669893 #### [facility] [address] [place] [address] MCH (RBC) [Entitic mass] 32.8 pg Normal 27.0-34.0 [facility] Comment on above: Performed By: #### 2 541024 #### [facility] [address] [place] [address] MCHC (RBC) [Mass/Vol] 34.0 g/dL Normal 31.4-36.0 [place] Comment on above: Performed By: #### 2 564123 #### [facility] [address] [place] [address] MCV (RBC) [Entitic vol] 96.5 fL Normal 80.0-100.0 [facility] Comment on above: Performed By: #### 2 323735 #### [facility] [address] [place] [address] Platelet 225.0 E9/L Normal 150.0-500. 0 [facility] Comment on above: Performed By: #### 2 185777 #### [facility] [address] [place] [address] Platelet mean volume (Bld) [Entitic vol] 8.0 fL Normal 6.4-10.8 [facility] Comment on above: Performed By: #### 2 516088 #### [facility] [address] [place] [address] RBC 3.5 E12/L Low 4.3-5.9 [facility] Comment on above: Performed By: #### 2 412206 #### [facility] [address] [place] [address] RBC morphology finding Nom (Bld) NORMAL Invalid Interpretation Code [facility] Comment on above: Performed By: #### 2 613808 #### [facility] [address] [place] [address] WBC 8.2 E9/L Normal 4.0-11.0 [facility] Comment on above: Performed By: #### 2 859434 #### [facility] [address] [place] [address] Lipase Levelon 11-27-2024 Lipase Lvl 159 unit/L High 13-58 [facility] Comment on above: Performed By: #### 2 440588 #### [facility] [address] [place] [address] eGFRon 11-27-2024 eGFR 102 mL/min/1.73 m2 Normal >=59 [facility] Comment on above: Performed By: #### 1 5503221 #### [facility] [address] [place] [address] CBC w/ Auto Diffon 5 Basophil Absolute 0.0 E9/L Normal 0.0-0.2 [facility] Comment on above: Performed By: #### 2 195639 #### [facility] [address] [place] [address] Basophils/100 WBC (Bld) 0.6 % Normal 0.0-2.0 [facility] Comment on above: Performed By: #### 2 922254 #### [facility] [address] [place] [address] Eos Absolute 0.1 E9/L Normal 0.0-0.5 [facility] Comment on above: Performed By: #### 2 758724 #### [facility] [address] [place] [address] Eosinophils/100 WBC (Bld) 1.7 % Normal 0.0-8.0 [facility] Comment on above: Performed By: #### 2 132938 #### [facility] [address] [place] [address] Erythrocyte distribution width (RBC) [Ratio] 12.9 % Normal 10.9-14.2 [facility] Comment on above: Performed By: #### 2 356062 #### [facility] [address] [place] [address] Hematocrit (Bld) [Volume fraction] 33.6 % Low 34.0-46.0 [facility] Comment on above: Performed By: #### 2 461368 #### [facility] [address] [place] [address] Hemoglobin (Bld) [Mass/Vol] 11.6 g/dL Low 12.0-16.0 [facility] Comment on above: Performed By: #### 2 118065 #### [facility] [address] [place] [address] Lymph Absolute 3.0 E9/L Normal 1.0-4.0 [facility] Comment on above: Performed By: #### 2 [id number] #### [facility] [address] [place] [address] Lymphocytes/100 WBC (Bld) 39.1 % Normal 14.0-50.0 [facility] Comment on above: Performed By: #### 2 [id number] #### [facility] [address] [place] [address] MCH (RBC) [Entitic mass] 33.8 pg Normal 27.0-34.0 [facility] Comment on above: Performed By: #### 2 [id number] #### [facility] [address] [place] [address] MCHC (RBC) [Mass/Vol] 34.6 g/dL Normal 31.4-36.0 [place] Comment on above: Performed By: #### 2 [id number] #### [facility] [address] [place] [address] MCV (RBC) [Entitic vol] 97.8 fL Normal 80.0-100.0 [facility] Comment on above: Performed By: #### 2 [id number] #### [facility] [address] [place] [address] Harris Absolute 0.7 E9/L Normal 0.2-1.0 [facility] Comment on above: Performed By: #### 2 [id number] #### [facility] [address] [place] [address] Monocytes/100 WBC (Bld) 9.7 % Normal 4.0-14.0 [facility] Comment on above: Performed By: #### 2 057815 #### [facility] [address] [place] [address] Neutro Absolute 3.8 E9/L Normal 2.0-7.5 [facility] Comment on above: Performed By: #### 2 387263 #### [facility] [address] [place] [address] Neutro Auto 48.9 % Normal 36.0-75.0 [facility] Comment on above: Performed By: #### 2 943706 #### [facility] [address] [place] [address] Platelet 255.0 E9/L Normal 150.0-500. 0 [facility] Comment on above: Performed By: #### 2 336304 #### [facility] [address] [place] [address] Platelet mean volume (Bld) [Entitic vol] 7.8 fL Normal 6.4-10.8 [facility] Comment on above: Performed By: #### 2 [id number] #### [facility] [address] [place] [address] RBC 3.4 E12/L Low 4.3-5.9 [facility] Comment on above: Performed By: #### 2 574674 #### [facility] [address] [place] [address] WBC 7.7 E9/L Normal 4.0-11.0 [facility] Comment on above: Performed By: #### 2 796316 #### [facility] [address] [place] [address] CMPon 11-26-2024 Albumin [Mass/Vol] 3.5 g/dL Normal 3.3-5.0 [facility] Comment on above: Performed By: #### 2 126875 #### [facility] [address] [place] [address] Albumin/Globulin [Mass ratio] 1.8 {ratio} Normal 1.1-2.2 [facility] Comment on above: Performed By: #### 2 621833 #### [facility] [address] [place] [address] Alk Phos 121 Int._Unit/L High 21-98 [facility] Comment on above: Performed By: #### 2 758074 #### [facility] [address] [place] [address] ALT 18 Int._Unit/L Normal 6-46 [facility] Comment on above: Performed By: #### 2 948848 #### [facility] [address] [place] [address] Anion gap [Moles/Vol] 7 mmol/L Normal 6-16 [place] Comment on above: Performed By: #### 2 473473 #### [facility] [address] [place] [address] AST 29 Int._Unit/L Normal 5-43 [facility] Comment on above: Performed By: #### 2 502073 #### [facility] [address] [place] [address] Bili Total 0.3 mg/dL Normal 0.0-1.1 [facility] Comment on above: Performed By: #### 2 149694 #### [facility] [address] [place] [address] BUN/Creat Ratio 10 No Units Normal 10-20 [facility] Comment on above: Performed By: #### 2 231649 #### [facility] [address] [place] [address] Calcium [Mass/Vol] 8.7 mg/dL Low 8.9-11.1 [facility] Comment on above: Performed By: #### 2 615670 #### [facility] [address] [place] [address] Chloride [Moles/Vol] 107 mmol/L Normal 101-111 [facility] Comment on above: Performed By: #### 2 683751 #### [facility] [address] [place] [address] CO2 [Moles/Vol] 28 mmol/L Normal 21-31 [facility] Comment on above: Performed By: #### 2 708563 #### [facility] [address] [place] [address] Creatinine [Mass/Vol] 0.8 mg/dL Normal 0.5-1.3 [place] Comment on above: Performed By: #### 2 375630 #### [facility] [address] [place] [address] Globulin (S) [Mass/Vol] 1.9 g/dL Normal 1.4-4.0 [facility] Comment on above: Performed By: #### 2 455460 #### [facility] [address] [place] [address] Glucose [Mass/Vol] 84 mg/dL Normal 55-199 [facility] Comment on above: Performed By: #### 2 891263 #### [facility] [address] [place] [address] Potassium [Moles/Vol] 4.0 mmol/L Normal 3.5-5.3 [place] Comment on above: Performed By: #### 2 438632 #### [facility] [address] [place] [address] Protein [Mass/Vol] 5.4 g/dL Low 6.0-7.8 [facility] Comment on above: Performed By: #### 2 190313 #### [facility] [address] [place] [address] Sodium [Moles/Vol] 138 mmol/L Normal 135-145 [facility] Comment on above: Performed By: #### 2 970898 #### [facility] [address] [place] [address] Urea nitrogen [Mass/Vol] 8 mg/dL Normal 5-21 [facility] Comment on above: Performed By: #### 2 850967 #### [facility] [address] [place] [address] Lipase Levelon 11-26-2024 Lipase Lvl 240 unit/L High 13-58 [facility] Comment on above: Performed By: #### 2 445992 #### [facility] [address] [place] [address] eGFRon 11-26-2024 eGFR 87 mL/min/1.73 m2 Normal >=59 [facility] Comment on above: Performed By: #### 1 [id number] #### [facility] [address] [place] [address] ED Clinical Summaryon 2024 ED Clinical Summary ED Clinical Summary [address] [address] ED Clinical Summary Person Information Name: CHIOMA ARCINIEGA Kayy/[facility] Age: 54 Years : 1970 Sex: Female Language: Ghanaian PCP: NONE, XXXX Marital Status: Visit Id: Visit Reason: Abdominal problem; Nausea; Abdominal pain; SEVERE ABD PAIN, N/V Speciality: Acuity: 3 Enc Type: Inpatient Med Service: Medical Arrival: 11/24/2024 20:08:05 Discharge: LOS: 000 05:25 Checkin: 11/24/2024 20:08:05 Checkout: 11/25/2024 01:33:45 Dispo Type: Admitted as IP to this [facility] EVENTS: Event Name Event Status Request [...] 11/25/2024 01:08:38 Lab Request 11/25/2024 01:08:38 ADDRESS: [facility] [place] [id number] PHYS DOC NOTES: MEDICAL INFORMATION: Prescriptions Given: Medications to Continue with No Changes Other Medications promethazine (promethazine 25 mg Tab) 1 Tablets By Mouth 3 times a day. Refills: 0. PATIENT EDUCATION INFORMATION: Instructions: Follow up: DIAGNOSIS: Acute on chronic pancreatitis; Other chronic pancreatitis Normal [facility] ED Note-Physicianon 11-26-19 ED Note-Physician ED Note-Physician Basic Information Time Seen: Loki Ernandez DO 11/24/2024 21:59 Chief Complaint pt to ED [...] most recently a GI physician at the [facility] who performs interventional pain management treatments for [...] - High Risk, 10/03/2024 10 or more ciga (more content not included)... Normal [facility] Comment on above: Result Comment: Elec tronically Signed By: Loki Enrandez DO\.higinio\Date and Time Signed: 11/25/24 01:13 EDT ED Patient Education Noteon 11-25-2024 ED Patient Education Note ED Patient Education Note Normal [facility] ED Patient Summaryon 025 ED Patient Summary ED Patient Summary [place] [id number] Patient Discharge Instructions Person Information Name: CHIOMA ARCINIEGA Age: 54 Years Arrival Date: 11/24/2024 20:08:05 Discharge Diagnosis: Acute on chronic pancreatitis; Other chronic pancreatitis Primary Care Physician: NONE, XXXX Provider Information Primary Provider: Loki Ernandez DO [employer] Manager:Liane The exam and treatment you received in the Emergency Department were for an urgent problem and are not intended as complete care. It is important that you follow up with a doctor, nurse practitioner, or physician???s assistant director of security for ongoing care. If your symptoms become [...] opioids can be used to help relieve zbyudhza-kh-ciqpks pain and are often prescribed following a [...] be struggling with addiction, tell your health weekend caregiver and ask for guidance or call [facility]???S National Helpline at 0-900-779-HELP. v Source: [place] Department of Health and Human Services/C (more content not included)... Normal [facility] Interdisciplinary Note - Dwayne e Manageron 11-25-2024 Interdisciplinary Note - Technician [employer] Interdisciplinary Note - Technician [employer] CM met with patient at bedside. Patient states she is from home with and her daughter/ her boyfriend/ their baby twins and another small child are all living with her. Patient is independent with all self care drives and does not use DME in the home. Patient denies any discharge needs at this time and will transport home. Patient follows with [facility] in [place] for her PCP needs and Dr Hathaway is attending. Plan remains home no needs when medically stable. Patient admitted IN for pancreatitis. CM to follow. Normal [facility] Comment on above: Result Comment: Elec tronically Signed By: Lara Wilson I\.br\Date and Time Signed: 11/25/24 09:21 EDT BMPon 11-24-2024 Anion gap [Moles/Vol] 13 mmol/L Normal 6-16 [place] Comment on above: Performed By: #### 2 [id number] #### [facility] [address] [place] [address] BUN/Creat Ratio 13 No Units Normal 10-20 [facility] Comment on above: Performed By: #### 2 088610 #### [facility] [address] [place] [address] Calcium [Mass/Vol] 10.7 mg/dL Normal 8.9-11.1 [facility] Comment on above: Performed By: #### 2 697878 #### [facility] [address] [place] [address] Chloride [Moles/Vol] 100 mmol/L Low 101-111 [facility] Comment on above: Performed By: #### 2 436626 #### [facility] [address] [place] [address] CO2 [Moles/Vol] 30 mmol/L Normal 21-31 [facility] Comment on above: Performed By: #### 2 311315 #### [facility] [address] [place] [address] Creatinine [Mass/Vol] 0.9 mg/dL Normal 0.5-1.3 [place] Comment on above: Performed By: #### 2 207524 #### [facility] [address] [place] [address] Glucose [Mass/Vol] 109 mg/dL Normal 55-199 [facility] Comment on above: Performed By: #### 2 962723 #### [facility] [address] [place] [address] Potassium [Moles/Vol] 3.8 mmol/L Normal 3.5-5.3 [place] Comment on above: Performed By: #### 2 121850 #### [facility] [address] [place] [address] Sodium [Moles/Vol] 139 mmol/L Normal 135-145 [facility] Comment on above: Performed By: #### 2 583730 #### [facility] [address] [place] [address] Urea nitrogen [Mass/Vol] 12 mg/dL Normal 5-21 [facility] Comment on above: Performed By: #### 2 877926 #### [facility] [address] [place] [address] CBC w/ Auto Diffon 5 Basophil Absolute 0.1 E9/L Normal 0.0-0.2 [facility] Comment on above: Performed By: #### 2 468638 #### [facility] [address] [place] [address] Basophils/100 WBC (Bld) 0.6 % Normal 0.0-2.0 [facility] Comment on above: Performed By: #### 2 195383 #### [facility] [address] [place] [address] Eos Absolute 0.1 E9/L Normal 0.0-0.5 [facility] Comment on above: Performed By: #### 2 692713 #### [facility] [address] [place] [address] Eosinophils/100 WBC (Bld) 0.6 % Normal 0.0-8.0 [facility] Comment on above: Performed By: #### 2 468228 #### [facility] [address] [place] [address] Erythrocyte distribution width (RBC) [Ratio] 13.0 % Normal 10.9-14.2 [facility] Comment on above: Performed By: #### 2 164077 #### [facility] [address] [place] [address] Hematocrit (Bld) [Volume fraction] 45.4 % Normal 34.0-46.0 [facility] Comment on above: Performed By: #### 2 347885 #### [facility] [address] [place] [address] Hemoglobin (Bld) [Mass/Vol] 15.3 g/dL Normal 12.0-16.0 [facility] Comment on above: Performed By: #### 2 213287 #### [facility] [address] [place] [address] Lymph Absolute 2.6 E9/L Normal 1.0-4.0 [facility] Comment on above: Performed By: #### 2 982045 #### [facility] [address] [place] [address] Lymphocytes/100 WBC (Bld) 18.2 % Normal 14.0-50.0 [facility] Comment on above: Performed By: #### 2 283130 #### [facility] [address] [place] [address] MCH (RBC) [Entitic mass] 32.2 pg Normal 27.0-34.0 [facility] Comment on above: Performed By: #### 2 649699 #### [facility] [address] [place] [address] MCHC (RBC) [Mass/Vol] 33.6 g/dL Normal 31.4-36.0 [place] Comment on above: Performed By: #### 2 872387 #### [facility] [address] [place] [address] MCV (RBC) [Entitic vol] 95.9 fL Normal 80.0-100.0 [facility] Comment on above: Performed By: #### 2 937363 #### [facility] [address] [place] [address] Harris Absolute 1.5 E9/L High 0.2-1.0 [facility] Comment on above: Performed By: #### 2 902067 #### [facility] [address] [place] [address] Monocytes/100 WBC (Bld) 10.5 % Normal 4.0-14.0 [facility] Comment on above: Performed By: #### 2 689160 #### [facility] [address] [place] [address] Neutro Absolute 10.0 E9/L High 2.0-7.5 [facility] Comment on above: Performed By: #### 2 471647 #### [facility] [address] [place] [address] Neutro Auto 70.1 % Normal 36.0-75.0 [facility] Comment on above: Performed By: #### 2 265378 #### [facility] [address] [place] [address] Platelet 373.0 E9/L Normal 150.0-500. 0 [facility] Comment on above: Performed By: #### 2 803500 #### [facility] [address] [place] [address] Platelet mean volume (Bld) [Entitic vol] 7.8 fL Normal 6.4-10.8 [facility] Comment on above: Performed By: #### 2 536735 #### [facility] [address] [place] [address] RBC 4.7 E12/L Normal 4.3-5.9 [facility] Comment on above: Performed By: #### 2 347976 #### [facility] [address] [place] [address] WBC 14.3 E9/L High 4.0-11.0 [facility] Comment on above: Performed By: #### 2 687641 #### [facility] [address] [place] [address] Extra Blueon 11-24-2024 Tube Collected Plasma Yes Invalid Interpretation Code [facility] Comment on above: Performed By: #### 1 [id number] #### [facility] [address] [place] [address] Hep Func Panelon 11-24-2024 Albumin [Mass/Vol] 4.9 g/dL Normal 3.3-5.0 [facility] Comment on above: Performed By: #### 2 937599 #### [facility] [address] [place] [address] Albumin/Globulin [Mass ratio] 1.6 {ratio} Normal 1.1-2.2 [facility] Comment on above: Performed By: #### 2 506382 #### [facility] [address] [place] [address] Alk Phos 169 Int._Unit/L High 21-98 [facility] Comment on above: Performed By: #### 2 614686 #### [facility] [address] [place] [address] ALT 12 Int._Unit/L Normal 6-46 [facility] Comment on above: Performed By: #### 2 568461 #### [facility] [address] [place] [address] AST 19 Int._Unit/L Normal 5-43 [facility] Comment on above: Performed By: #### 2 494868 #### [facility] [address] [place] [address] Bili Direct 0.0 mg/dL Normal 0.0-0.4 [facility] Comment on above: Performed By: #### 2 935626 #### [facility] [address] [place] [address] Bili Indirect 0.4 mg/dL Normal 0.1-0.9 [facility] Comment on above: Performed By: #### 2 689222 #### [facility] [address] [place] [address] Bili Total 0.4 mg/dL Normal 0.0-1.1 [facility] Comment on above: Performed By: #### 2 944137 #### [facility] [address] [place] [address] Globulin (S) [Mass/Vol] 3.0 g/dL Normal 1.4-4.0 [facility] Comment on above: Performed By: #### 2 949590 #### [facility] [address] [place] [address] Protein [Mass/Vol] 7.9 g/dL High 6.0-7.8 [facility] Comment on above: Performed By: #### 2 659347 #### [facility] [address] [place] [address] Lipase Levelon 11-24-2024 Lipase Lvl 303 unit/L High 13-58 [facility] Comment on above: Performed By: #### 2 645260 #### [facility] [address] [place] [address] eGFRon 11-24-2024 eGFR 75 mL/min/1.73 m2 Normal >=59 [facility] Comment on above: Performed By: #### 1 [id number] #### [facility] [address] [place] [address] ANES POSTPROC EVALon 025 ANES POSTPROC EVAL HNO ID: [id number] Author: MARLI COSBY MD Service: ? Author Type: Physician [...] secondary to chronic pancreatitis) Scheduled Providers: Josse Romo MD Responsible Provider: Marli Cosby MD Anesthesia Type: general ASA Status: [...] of care. Anesthesia Observations No Documentation SIGNATURE: Marli Cosby MD PATIENT NAME: Chioma Rainey DATE: November 21, 2024 TIME: 8:23 AM CSN: [id number] Normal [facility] ANES PRE-OPon 11-17-2024 ANES PRE-OP HNO ID: [id number] Author: MARLI COSBY MD Service: ? Author Type: Physician Type: Anesthesia Preprocedure Evaluation Filed: 11/17/2024 14:39 Note Text: ANESTHESIOLOGY DAY OF SURGERY NOTE : 1970 Procedure Information Date/Time: 11/17/24 1530 Scheduled providers: Josse Romo MD; Sandhya Poon APRN.PEPPER CUTTER; Marli Cosby MD Procedure: EGD - THERAPEUTIC, EUS, [...] and consent discussed: yes. Patient / Responsible Republican agrees to proceed: yes Patient / Surrogate [...] Outpatient Medications as of 11/17/2024 Medication Sig lhbizu-jdzdskfp-rpqrmok (CREON) 24,000-76,000 -120,000 unit delayed release capsule Take 2 caps by mouth 3 times daily with meals and 1 cap with each snack. Take 1st cap before meal starts and the 2nd cap intermediate through. Max of 10 capsules per day. [...] obtained within 48 hours of Surgery/Procedure. SIGNATURE: Marli Cosby MD PATIENT NAME: Chioma Rainey DATE: November 17, 2024 TIME: 2:38 PM CSN: [id number] Normal [facility] EGD Study observation Narrat iveon 11-17-2024 [facility] Radiology Study observation (narrative) [facility] NURSING PROGon 11-17-2024 NURSING PROG HNO ID: [id number] Author: MAYRA SANTIAGO RN Service: ? Author [...] None Electronically Signed By: Mayra Santiago RN Normal [facility] NURSING PROG HNO ID: [id number] Author: COLIN GUZMAN RN Service: ? Author Type: Registered [...] LIMITATIONS AFFECTING LEARNING: None Electronically Signed By: Colin Guzman RN In Department: GASTROENTEROLOGY Normal [facility] CBC auto differentialon 09-0 Basophils (Bld) [#/Vol] 0.04 10*3/uL [facility] Basophils/100 WBC (Bld) 1 % 0 - 2 % [facility] Eosinophils (Bld) [#/Vol] 0.17 10*3/uL [facility] Eosinophils/100 WBC (Bld) 3 % 1 - 4 % [facility] Erythrocyte distribution width (RBC) [Ratio] 12.3 % 11.8 - 14.4 % [facility] Hematocrit (Bld) [Volume fraction] 35.1 % Low 36.3 - 47.1 % [facility] Hemoglobin (Bld) [Mass/Vol] 11.9 g/dL 11.9 - 15.1 g/dL [facility] Immature granulocytes (Bld) [#/Vol] [facility] Immature granulocytes/100 WBC (Bld) 0 % 0 [facility] Interpretation and review of laboratory results Abnormal [facility] Lymphocytes/100 WBC (Bld) 22 % Low 24 - 43 % [facility] Lymphocytes/100 WBC (Bld) 1.43 % [facility] MCH (RBC) [Entitic mass] 33.1 pg 25.2 - 33.5 pg [facility] MCHC (RBC) [Mass/Vol] 33.9 g/dL 28.4 - 34.8 g/dL [facility] MCV (RBC) [Entitic vol] 97.8 fL 82.6 - 102.9 fL [facility] Monocytes/100 WBC (Bld) 15 % High 3 - 12 % [facility] Monocytes/100 WBC (Bld) 0.99 % [facility] Neutrophils/100 WBC (Bld) 59 % 36 - 65 % [facility] Nucleated RBC/100 WBC (Bld) [Ratio] 0.0 % 0.0 per 100 WBC [facility] Platelet mean volume (Bld) [Entitic vol] 9.8 fL 8.1 - 13.5 fL [facility] Platelets (Bld) [#/Vol] 144 10*3/uL [facility] RBC (Bld) [#/Vol] 3.59 10*6/uL Low 3.95 - 5.11 m/uL [facility] Segmented neutrophils/100 WBC (Bld) 3.84 % [facility] WBC other (Bld) [#/Vol] 6.5 [facility] CBC with Diffon 11-09-2024 Abs. Basophil 0.04 k/uL Normal 0.00-0.20 [facility] Comment on above: Performed By: #### B MP, LIVP, LIP #### [address] [place], [place] [id number] [employer] Operator: Ion Jasso MD Abs.Imm.Granulocyte <0.03 Normal 0.00-0.30 [facility] Comment on above: Performed By: #### B MP, LIVP, LIP #### [address] [place], [facility] [employer] Operator: Ion Jasso MD Abs.Neutrophil (Seg) 3.84 k/uL Normal 1.50-8.10 [facility] Comment on above: Performed By: #### B MP, LIVP, LIP #### [address] [place] [address] [employer] Operator: Ion Jasso MD Basophils/100 WBC (Bld) 1 % Normal 0-2 [facility] Comment on above: Performed By: #### B MP, LIVP, LIP #### [address] [place] [address] [employer] Operator: Ion Jasso MD Eosinophils (Bld) [#/Vol] 0.17 10*3/uL Normal 0.00-0.44 [facility] Comment on above: Performed By: #### B MP, LIVP, LIP #### [facility] [address] [place], [place] [id number] [employer] Operator: Ion Jasso MD Eosinophils/100 WBC (Bld) 3 % Normal 1-4 [facility] Comment on above: Performed By: #### B MP, LIVP, LIP #### [address] [place], [place] [address] [employer] Operator: Ion Jasso MD Erythrocyte distribution width (RBC) [Ratio] 12.3 % Normal 11.8-14.4 [facility] Comment on above: Performed By: #### B MP, LIVP, LIP #### [address] [place] [address] [employer] Operator: Ion Jasso MD Hematocrit (Bld) [Volume fraction] 35.1 % Low 36.3-47.1 [facility] Comment on above: Performed By: #### B MP, LIVP, LIP #### [address] [place], [place] [address] [employer] Operator: Ion Jasso MD Hemoglobin (Bld) [Mass/Vol] 11.9 g/dL Normal 11.9-15.1 [facility] Comment on above: Performed By: #### B MP, LIVP, LIP #### [address] [place] [address] [employer] Operator: Ion Jasso MD Immature granulocytes/100 WBC (Bld) 0 % Normal 0 [facility] Comment on above: Performed By: #### B MP, LIVP, LIP #### [address] [place], [facility] [employer] Operator: Ion Jasso MD Lymphocytes (Bld) [#/Vol] 1.43 10*3/uL Normal 1.10-3.70 [facility] Comment on above: Performed By: #### B MP, LIVP, LIP #### [address] [place], [place] [address] [employer] Operator: Ion Jasso MD Lymphocytes/100 WBC (Bld) 22 % Low 24-43 [facility] Comment on above: Performed By: #### B MP, LIVP, LIP #### [facility] [address] [place], [place] [address] [employer] Operator: Ion Jasso MD MCH (RBC) [Entitic mass] 33.1 pg Normal 25.2-33.5 [facility] Comment on above: Performed By: #### B MP, LIVP, LIP #### [facility] [address] [place] [address] Dr[place], [facility] [employer] Operator: Ion Jasso MD MCHC (RBC) [Mass/Vol] 33.9 g/dL Normal 28.4-34.8 [facility] Comment on above: Performed By: #### B MP, LIVP, LIP #### [address] [place], [facility] [employer] Operator: Ion Jasso MD MCV (RBC) [Entitic vol] 97.8 fL Normal 82.6-102.9 [facility] Comment on above: Performed By: #### B MP, LIVP, LIP #### [address] [place], [place] [id number] [employer] Operator: Ion Jasso MD Monocytes (Bld) [#/Vol] 0.99 10*3/uL Normal 0.10-1.20 [facility] Comment on above: Performed By: #### B MP, LIVP, LIP #### [facility] [address] [place] [address] Dr. [place], [place] [id number] Char Belt Operator: Ion Jasso MD Monocytes/100 WBC (Bld) 15 % High 3-12 [facility] Comment on above: Performed By: #### B MP, LIVP, LIP #### [facility] [address] [place], [place] [id number] Char Belt Operator: Ion Jasso MD Neutrophil (Seg) 59 % Normal 36-65 [facility] Comment on above: Performed By: #### B MP, LIVP, LIP #### [facility] [address] [place], [place] [id number] Char Belt Operator: Ion Jasso MD NRBC Automated 0.0 per 100 WBC Normal 0.0 [facility] Comment on above: Performed By: #### B MP, LIVP, LIP #### [facility] [address] [place], [place] [id number] Char Belt Operator: Ion Jasso MD Platelet mean volume (Bld) [Entitic vol] 9.8 fL Normal 8.1-13.5 [facility] Comment on above: Performed By: #### B MP, LIVP, LIP #### [facility] [address] [place], [place] [id number] Char Belt Operator: Ion Jasso MD Platelets (Bld) [#/Vol] 144 10*3/uL Normal 138-453 [facility] Comment on above: Performed By: #### B MP, LIVP, LIP #### [facility] [address] [place], [place] [id number] Char Belt Operator: Ion Jasso MD RBC (Bld) [#/Vol] 3.59 10*6/uL Low 3.95-5.11 [facility] Comment on above: Performed By: #### B MP, LIVP, LIP #### [facility] [address] [place] [address] Char Belt Operator: Ion Jasso MD WBC (Bld) [#/Vol] 6.5 10*3/uL Normal 3.5-11.3 [facility] Comment on above: Performed By: #### B MP, LIVP, LIP #### [facility] [address] [place] [address] Char Belt Operator: Ion Jasso MD Comp Metabolic Pr/rfx MGon 0 11-09-2024 Albumin [Mass/Vol] 3.5 g/dL Normal 3.5-5.2 [facility] Comment on above: Performed By: #### B MP, LIVP, LIP #### [facility] [address] [place] [address] Char Belt Operator: Ion Jasso MD Albumin/Glob Ratio 1.7 Normal 1.0-2.5 [facility] Comment on above: Performed By: #### B MP, LIVP, LIP #### [facility] [address] [place], [place] [id number] Char Belt Operator: Ion Jasso MD Alkaline Phos 186 U/L High 35-104 [facility] Comment on above: Performed By: #### B MP, LIVP, LIP #### [facility] [address] [place], [place] [id number] Char Belt Operator: Ion Jasso MD ALT [Catalytic activity/Vol] 79 U/L High 10-35 [facility] Comment on above: Performed By: #### B MP, LIVP, LIP #### [facility] [address] [place], [place] [id number] Char Belt Operator: Ion Jasso MD Anion gap [Moles/Vol] 12 mmol/L Normal 9-16 [facility] Comment on above: Performed By: #### B MP, LIVP, LIP #### [facility] [address] [place] [address] Dr. [place], [place] [id number] Char Belt Operator: Ion Jasso MD AST [Catalytic activity/Vol] 62 U/L High 10-35 [facility] Comment on above: Performed By: #### B MP, LIVP, LIP #### [facility] [address] [place] [address] Char Belt Operator: Ion Jasso MD Bilirubin [Mass/Vol] 0.2 mg/dL Normal 0.00-1.20 [facility] Comment on above: Performed By: #### B MP, LIVP, LIP #### [facility] [address] [place], [place] [id number] Char Belt Operator: Ion Jasso MD BUN/CRE Ratio 5 Low 9-20 [facility] Comment on above: Performed By: #### B MP, LIVP, LIP #### [facility] [address] [place], [place] [id number] Char Belt Operator: Ion Jasso MD Calcium [Mass/Vol] 8.9 mg/dL Normal 8.6-10.4 [facility] Comment on above: Performed By: #### B MP, LIVP, LIP #### [facility] [address] [place], [place] [id number] Char Belt Operator: Ion Jasso MD Chloride [Moles/Vol] 107 mmol/L Normal 98-107 [facility] Comment on above: Performed By: #### B MP, LIVP, LIP #### [facility] [address] [place], [place] 9364083 Char Belt Operator: Ion Jasso MD CO2 [Moles/Vol] 22 mmol/L Normal 20-31 [facility] Comment on above: Performed By: #### B MP, LIVP, LIP #### [facility] [address] [place], [place] [phone] Char Belt Operator: Ion Jasso MD Creatinine [Mass/Vol] 0.6 mg/dL Normal 0.50-0.90 [facility] Comment on above: Performed By: #### B MP, LIVP, LIP #### [facility] [address] [place], [place] [phone] Char Belt Operator: Ion Jasso MD GFR/1.73 sq M.predicted among non-blacks MDRD (S/P/Bld) [Vol rate/Area] mL/min/{1.73_m2} Normal >60 [facility] Comment on above: Result Comment: These [...] affects renal tubular secretion. Performed By: #### B MP, LIVP, LIP #### [facility] [address] [place] [address] Dr. [place], [place] [id number] Char Belt Operator: Ion Jasso MD Glucose [Mass/Vol] 98 mg/dL Normal 74-99 [facility] Comment on above: Performed By: #### B MP, LIVP, LIP #### [address] [place], [place] [id number] Char Belt Operator: Ion Jasso MD Potassium [Moles/Vol] 3.7 mmol/L Normal 3.7-5.3 [facility] Comment on above: Performed By: #### B MP, LIVP, LIP #### [address] [place], [place] [id number] Char Belt Operator: Ion Jasso MD Protein [Mass/Vol] 5.6 g/dL Low 6.6-8.7 [facility] Comment on above: Performed By: #### B MP, LIVP, LIP #### [address] [place], [place] [id number] Char Belt Operator: Ion Jasso MD Sodium [Moles/Vol] 141 mmol/L Normal 136-145 [facility] Comment on above: Performed By: #### B MP, LIVP, LIP #### [facility] [address] [place] [address] Dr. [place], [place] [phone] Char Belt Operator: Ion Jasso MD Urea nitrogen [Mass/Vol] 3 mg/dL Low 6-20 [facility] Comment on above: Performed By: #### B MP, LIVP, LIP #### [facility] [address] [place] [address] [place] [address] Char Belt Operator: Ion Jasso MD Comprehensive Metabolic Pane l w/ Reflex to MGon 11-09-2024 Albumin [Mass/Vol] 3.5 g/dL 3.5 - 5.2 g/dL [facility] Albumin/Globulin [Mass ratio] 1.7 {ratio} 1.0 - 2.5 [facility] ALP [Catalytic activity/Vol] 186 U/L High 35 - 104 U/L [facility] ALT [Catalytic activity/Vol] 79 U/L High 10 - 35 U/L [facility] Anion gap [Moles/Vol] 12 mmol/L 9 - 16 mmol/L [facility] AST [Catalytic activity/Vol] 62 U/L High 10 - 35 U/L [facility] Bilirubin [Mass/Vol] 0.2 mg/dL 0.00 - 1.20 mg/dL [facility] Calcium [Mass/Vol] 8.9 mg/dL 8.6 - 10. 4 mg/dL [facility] Chloride [Moles/Vol] 107 mmol/L 98 - 10 7 mmol/L [facility] CO2 [Moles/Vol] 22 mmol/L 20 - 31 mmol/L [facility] Creatinine [Mass/Vol] 0.6 mg/dL 0.50 - 0.90 mg/dL [facility] Kaylyn Prather Rate - PINF [facility] Comment on above: These results [...] that affects renal tubular secretion. Glucose [Mass/Vol] 98 mg/dL 74 - 99 mg/dL [facility] Interpretation and review of laboratory results Abnormal [facility] Potassium [Moles/Vol] 3.7 mmol/L 3.7 - 5.3 mmol/L [facility] Protein [Mass/Vol] 5.6 g/dL Low 6.6 - 8.7 g/dL [facility] Sodium [Moles/Vol] 141 mmol/L 136 - 145 mmol/L [facility] Urea nitrogen [Mass/Vol] 3 mg/dL Low 6 - 20 mg/dL [facility] Urea nitrogen/Creatinine [Mass ratio] 5 mg/mg Low 9 - 20 [facility] Lipaseon 11-09-2024 Lipase [Catalytic activity/Vol] 19 U/L 13 - 60 U/L [facility] Lipase [Catalytic activity/Vol] 19 U/L Normal 13-60 [facility] Comment on above: Performed By: #### B MP, LIVP, LIP #### [facility] [address] [place] [address] Char Belt Operator: Ion Jasso MD No Panel Informationon 11-09 [facility] CBC auto differentialon Basophils (Bld) [#/Vol] 0.04 10*3/uL [facility] Basophils/100 WBC (Bld) 1 % 0 - 2 % [facility] Eosinophils (Bld) [#/Vol] 0.13 10*3/uL [facility] Eosinophils/100 WBC (Bld) 2 % 1 - 4 % [facility] Erythrocyte distribution width (RBC) [Ratio] 12.5 % 11.8 - 14.4 % [facility] Hematocrit (Bld) [Volume fraction] 35.6 % Low 36.3 - 47.1 % [facility] Hemoglobin (Bld) [Mass/Vol] 11.9 g/dL 11.9 - 15.1 g/dL [facility] Immature granulocytes (Bld) [#/Vol] [facility] Immature granulocytes/100 WBC (Bld) 0 % 0 [facility] Interpretation and review of laboratory results Abnormal [facility] Lymphocytes/100 WBC (Bld) 29 % 24 - 43 % [facility] Lymphocytes/100 WBC (Bld) 1.70 % [facility] MCH (RBC) [Entitic mass] 33.0 pg 25.2 - 33.5 pg [facility] MCHC (RBC) [Mass/Vol] 33.4 g/dL 28.4 - 34.8 g/dL [facility] MCV (RBC) [Entitic vol] 98.6 fL 82.6 - 102.9 fL [facility] Monocytes/100 WBC (Bld) 17 % High 3 - 12 % [facility] Monocytes/100 WBC (Bld) 1.00 % [facility] Neutrophils/100 WBC (Bld) 51 % 36 - 65 % [facility] Nucleated RBC/100 WBC (Bld) [Ratio] 0.0 % 0.0 per 100 WBC [facility] Platelet mean volume (Bld) [Entitic vol] 9.8 fL 8.1 - 13.5 fL [facility] Platelets (Bld) [#/Vol] 153 10*3/uL [facility] RBC (Bld) [#/Vol] 3.61 10*6/uL Low 3.95 - 5.11 m/uL [facility] Segmented neutrophils/100 WBC (Bld) 2.91 % [facility] WBC other (Bld) [#/Vol] 5.8 [facility] CBC with Diffon 11-08-2024 Abs. Basophil 0.04 k/uL Normal 0.00-0.20 [facility] Comment on above: Performed By: #### B LIZY, LIVP, LIP #### [facility] [address] [place] [address] Char Belt Operator: Ion Jasso MD Abs.Imm.Granulocyte <0.03 Normal 0.00-0.30 [facility] Comment on above: Performed By: #### B MP, LIVP, LIP #### [facility] [address] [place] [address] Char Belt Operator: Ion Jasso MD Abs.Neutrophil (Seg) 2.91 k/uL Normal 1.50-8.10 [facility] Comment on above: Performed By: #### B MP, LIVP, LIP #### [facility] [address] [place], [place] [phone] Char Belt Operator: Ion Jasso MD Basophils/100 WBC (Bld) 1 % Normal 0-2 [facility] Comment on above: Performed By: #### B MP, LIVP, LIP #### [address] [place], [place] [phone] Char Belt Operator: Ion Jsaso MD Eosinophils (Bld) [#/Vol] 0.13 10*3/uL Normal 0.00-0.44 [facility] Comment on above: Performed By: #### B MP, LIVP, LIP #### [address] [place] [address] Char Belt Operator: Ion Jasso MD Eosinophils/100 WBC (Bld) 2 % Normal 1-4 [facility] Comment on above: Performed By: #### B MP, LIVP, LIP #### [address] [place], [facility] Char Belt Operator: Ion Jasso MD Erythrocyte distribution width (RBC) [Ratio] 12.5 % Normal 11.8-14.4 [facility] Comment on above: Performed By: #### B MP, LIVP, LIP #### [address] [place], [facility] Char Belt Operator: Ion Jasso MD Hematocrit (Bld) [Volume fraction] 35.6 % Low 36.3-47.1 [facility] Comment on above: Performed By: #### B MP, LIVP, LIP #### [address] [place], [facility] Char Belt Operator: Ion Jasso MD Hemoglobin (Bld) [Mass/Vol] 11.9 g/dL Normal 11.9-15.1 [facility] Comment on above: Performed By: #### B MP, LIVP, LIP #### [address] [place], [facility] Char Belt Operator: Ion Jasso MD Immature granulocytes/100 WBC (Bld) 0 % Normal 0 [facility] Comment on above: Performed By: #### B MP, LIVP, LIP #### [facility] [address] [place], [facility] Char Belt Operator: Ion Jasso MD Lymphocytes (Bld) [#/Vol] 1.70 10*3/uL Normal 1.10-3.70 [facility] Comment on above: Performed By: #### B MP, LIVP, LIP #### [address] [place] [address] Char Belt Operator: Ion Jasso MD Lymphocytes/100 WBC (Bld) 29 % Normal 24-43 [facility] Comment on above: Performed By: #### B MP, LIVP, LIP #### [address] [place], [facility] Char Belt Operator: Ion Jasso MD MCH (RBC) [Entitic mass] 33.0 pg Normal 25.2-33.5 [facility] Comment on above: Performed By: #### B MP, LIVP, LIP #### [address] [place] [id number] Char Belt Operator: Ion Jasso MD MCHC (RBC) [Mass/Vol] 33.4 g/dL Normal 28.4-34.8 [facility] Comment on above: Performed By: #### B MP, LIVP, LIP #### [address] [place] [phone] Char Belt Operator: Ion Jasso MD MCV (RBC) [Entitic vol] 98.6 fL Normal 82.6-102.9 [facility] Comment on above: Performed By: #### B MP, LIVP, LIP #### [address] [place] [id number] Char Belt Operator: Ion Jasso MD Monocytes (Bld) [#/Vol] 1.00 10*3/uL Normal 0.10-1.20 [facility] Comment on above: Performed By: #### B MP, LIVP, LIP #### [facility] [address] [place] [address] Char Belt Operator: Ion Jasso MD Monocytes/100 WBC (Bld) 17 % High 3-12 [facility] Comment on above: Performed By: #### B MP, LIVP, LIP #### [facility] [address] [place], [facility] Char Belt Operator: Ion Jasso MD Neutrophil (Seg) 51 % Normal 36-65 [facility] Comment on above: Performed By: #### B MP, LIVP, LIP #### [facility] [address] [place] [address] Dr. [place], [place] [address] Char Belt Operator: Ion Jasso MD NRBC Automated 0.0 per 100 WBC Normal 0.0 [facility] Comment on above: Performed By: #### B MP, LIVP, LIP #### [address] [place], [facility] Char Belt Operator: Ion Jasso MD Platelet mean volume (Bld) [Entitic vol] 9.8 fL Normal 8.1-13.5 [facility] Comment on above: Performed By: #### B MP, LIVP, LIP #### [facility] [address] [place], [facility] Char Belt Operator: Ion Jasso MD Platelets (Bld) [#/Vol] 153 10*3/uL Normal 138-453 [facility] Comment on above: Performed By: #### B MP, LIVP, LIP #### [facility] [address] [place], [place] [id number] Char Belt Operator: Ion Jasso MD RBC (Bld) [#/Vol] 3.61 10*6/uL Low 3.95-5.11 [facility] Comment on above: Performed By: #### B MP, LIVP, LIP #### [facility] [address] [place] [address] Dr. [place], [place] [phone] Char Belt Operator: Ion Jasso MD WBC (Bld) [#/Vol] 5.8 10*3/uL Normal 3.5-11.3 [facility] Comment on above: Performed By: #### B MP, LIVP, LIP #### [facility] [address] [place] [address] Dr. [place], [place] [id number] Char Belt Operator: Ion Jasso MD Comp Metabolic Pr/rfx MGon 0 11-08-2024 Albumin [Mass/Vol] 3.6 g/dL Normal 3.5-5.2 [facility] Comment on above: Performed By: #### B MP, LIVP, LIP #### [facility] [address] [place] [address] Dr. [place], [place] [phone] Char Belt Operator: Ion Jasso MD Albumin/Glob Ratio 1.7 Normal 1.0-2.5 [facility] Comment on above: Performed By: #### B MP, LIVP, LIP #### [address] [place], [place] [phone] Char Belt Operator: Ion Jasso MD Alkaline Phos 203 U/L High 35-104 [facility] Comment on above: Performed By: #### B MP, LIVP, LIP #### [facility] [address] [place] [address] Dr. [place], [place] [id number] Char Belt Operator: Ion Jasso MD ALT [Catalytic activity/Vol] 126 U/L High 10-35 [facility] Comment on above: Performed By: #### B MP, LIVP, LIP #### [facility] [address] [place] [address] Dr. [place], [place] 6576383 Char Belt Operator: Ion Jasso MD Anion gap [Moles/Vol] 11 mmol/L Normal 9-16 [facility] Comment on above: Performed By: #### B MP, LIVP, LIP #### [facility] [address] [place], [place] 5166683 Char Belt Operator: Ion Jasso MD AST [Catalytic activity/Vol] 171 U/L High 10-35 [facility] Comment on above: Performed By: #### B MP, LIVP, LIP #### [facility] [address] [place], [place] 5340083 Char Belt Operator: Ion Jasso MD Bilirubin [Mass/Vol] mg/dL Normal 0.00-1.20 [facility] Comment on above: Performed By: #### B MP, LIVP, LIP #### [facility] [address] [place] [address] Dr. [place], [place] 4957383 Char Belt Operator: Ion Jasso MD BUN/CRE Ratio 5 Low 9-20 [facility] Comment on above: Performed By: #### B MP, LIVP, LIP #### [facility] [address] [place] [address] Dr. [place], [place] 5046683 Char Belt Operator: Ion Jasso MD Calcium [Mass/Vol] 9.0 mg/dL Normal 8.6-10.4 [facility] Comment on above: Performed By: #### B MP, LIVP, LIP #### [facility] [address] [place], [place] 3897783 Char Belt Operator: Ion Jasso MD Chloride [Moles/Vol] 107 mmol/L Normal 98-107 [facility] Comment on above: Performed By: #### B MP, LIVP, LIP #### [facility] [address] [place], [place] 8384683 Char Belt Operator: Ion Jasso MD CO2 [Moles/Vol] 21 mmol/L Normal 20-31 [facility] Comment on above: Performed By: #### B MP, LIVP, LIP #### [facility] [address] [place] [address] Char Belt Operator: Ion Jasso MD Creatinine [Mass/Vol] 0.8 mg/dL Normal 0.50-0.90 [facility] Comment on above: Performed By: #### B MP, LIVP, LIP #### [facility] [address] [place] [address] Char Belt Operator: Ion Jasso MD GFR/1.73 sq M.predicted among non-blacks MDRD (S/P/Bld) [Vol rate/Area] mL/min/{1.73_m2} Normal >60 [facility] Comment on above: Result Comment: These [...] affects renal tubular secretion. Performed By: #### B MP, LIVP, LIP #### [facility] [address] [place] [address] Char Belt Operator: Ion Jasso MD Glucose [Mass/Vol] 96 mg/dL Normal 74-99 [facility] Comment on above: Performed By: #### B MP, LIVP, LIP #### [facility] [address] [place] [address] Char Belt Operator: Ion Jasso MD Potassium [Moles/Vol] 4.2 mmol/L Normal 3.7-5.3 [facility] Comment on above: Performed By: #### B MP, LIVP, LIP #### [facility] [address] [place] [address] Char Belt Operator: Ion Jasso MD Protein [Mass/Vol] 5.6 g/dL Low 6.6-8.7 [facility] Comment on above: Performed By: #### B MP, LIVP, LIP #### [facility] [address] [place] [address] Char Belt Operator: Ion Jasso MD Sodium [Moles/Vol] 139 mmol/L Normal 136-145 [facility] Comment on above: Performed By: #### B MP, LIVP, LIP #### [facility] [address] [place] [address] Char Belt Operator: Ion Jasso MD Urea nitrogen [Mass/Vol] 4 mg/dL Low 6-20 [facility] Comment on above: Performed By: #### B MP, LIVP, LIP #### [facility] [address] [place] [address] Char Belt Operator: Ion Jasso MD Comprehensive Metabolic Pane l w/ Reflex to on 11-08-2024 Albumin [Mass/Vol] 3.6 g/dL 3.5 - 5.2 g/dL [facility] Albumin/Globulin [Mass ratio] 1.7 {ratio} 1.0 - 2.5 [facility] ALP [Catalytic activity/Vol] 203 U/L High 35 - 104 U/L [facility] ALT [Catalytic activity/Vol] 126 U/L High 10 - 35 U/L [facility] Anion gap [Moles/Vol] 11 mmol/L 9 - 16 mmol/L [facility] AST [Catalytic activity/Vol] 171 U/L High 10 - 35 U/L [facility] Bilirubin [Mass/Vol] mg/dL 0.00 - 1.20 mg/dL [facility] Calcium [Mass/Vol] 9.0 mg/dL 8.6 - 10. 4 mg/dL [facility] Chloride [Moles/Vol] 107 mmol/L 98 - 10 7 mmol/L [facility] CO2 [Moles/Vol] 21 mmol/L 20 - 31 mmol/L [facility] Creatinine [Mass/Vol] 0.8 mg/dL 0.50 - 0.90 mg/dL [facility] EstKaylyn Rate - PINF [facility] Comment on above: These results are not [...] [Mass/Vol] 96 mg/dL 74 - 99 mg/dL [place] [facility] Interpretation and review of laboratory results Abnormal [employer] Potassium [Moles/Vol] 4.2 mmol/L 3.7 - 5.3 mmol/L [employer] Protein [Mass/Vol] 5.6 g/dL Low 6.6 - 8.7 g/dL [employer] Sodium [Moles/Vol] 139 mmol/L 136 - 145 mmol/L [facility] Urea nitrogen [Mass/Vol] 4 mg/dL Low 6 - 20 mg/dL [facility] Urea nitrogen/Creatinine [Mass ratio] 5 mg/mg Low 9 - 20 [employer] EKG 12 leadOrdered By: Brandon Cespedes on 11-08-2024 Atrial Rate 78 BPM [employer] Work Phone: P [place] 54 degrees [employer] Work Phone: P-R Interval 136 ms [employer] Work Phone: Q-T Interval 356 ms [employer] Work Phone: QRS Duration 74 ms [employer] Work Phone: QTc Calculation (Bazett) 405 ms [employer] Work Phone: R [place] 30 degrees [employer] Work Phone: T [place] 40 degrees [employer] Work Phone: Ventricular Rate 78 BPM [employer] Work Phone: [employer] Phone: EKG 12 leadon 11-08-2024 Normal sinus rhythm Normal ECG When compared with ECG of 07-Jan-2024 14:42, No significant change was found Confirmed by Tri Cespedes ([id number]) on 11/08/2024 10:43:20 AM [facility] RADIOLOGY Tri Cespedes MD - 11/08/2024 Normal sinus rhythm Normal ECG When compared with ECG of 07-Jan-2024 14:42, No significant change was found Confirmed by Tri Cespedes ([id number]) on 11/08/2024 10:43:20 AM [facility] Lipaseon 11-08-2024 Lipase [Catalytic activity/Vol] 30 U/L 13 - 60 U/L [facility] Lipase [Catalytic activity/Vol] 30 U/L Normal 13-60 [facility] Comment on above: Performed By: #### B MP, LIVP, LIP #### [facility] [address] [place] [address] Char Belt Operator: Ion Jasso MD MR Abdomen WO and W contrast Roxana 11-08-2024 1. Mild intra and extrahepatic bile duct [...] status post cholecystectomy. 5. Prominent duodenal diverticula. [facility] EXAMINATION: MRI OF THE ABDOMEN WITH AND [...] 3-4 mm; no stone or stricture evident. PERITONEUM/RETROPERITONEU M: Unremarkable appearance of the aorta. No aneurysm. Unremarkable appearance of the IVC. No adenopathy or fluid. BONES/SOFT TISSUES: Unremarkable appearance. LOWER CHEST: Visualized portions of the lungs are clear. Cardiac and posterior mediastinal structures visualized are unremarkable. VISUALIZED GI/BOWEL: Prominent duodenal diverticulum. 3D images: 3D reconstructed images were performed on a separate workstation and provided for review. These images were reviewed. [facility] Alexi Love MD - 11/08/2024 EXAMINATION: MRI OF THE ABDOMEN WITH AND [...] 3-4 mm; no stone or stricture evident. PERITONEUM/RETROPERITONEU M: Unremarkable appearance of the aorta. No aneurysm. [...] status post cholecystectomy. 5. Prominent duodenal diverticula. [facility] Radiology Study observation (narrative) [facility] MR Abdomen WO and W contrast IVOrdered By: Alexi Olivo on 11-08-2024 [facility] Work Phone: MRI ABDOMEN W WO CONTRAST MR CPon 11-08-2024 MRI ABDOMEN W WO CONTRAST MRCP EXAMINATION: MRI OF THE ABDOMEN WITH AND [...] 3-4 mm; no stone or stricture evident. PERITONEUM/RETROPERITONEU M: Unremarkable appearance of the aorta. No aneurysm. [...] by: Alexi Olivo MD 11/08/24 Final result Normal [facility] No Panel Informationon 11-08 [facility] CBC auto differentialon Basophils (Bld) [#/Vol] 0.04 10*3/uL [facility] Immature granulocytes (Bld) [#/Vol] [facility] Interpretation and review of laboratory results Abnormal [facility] Lymphocytes/100 WBC (Bld) 1.93 % [facility] Monocytes/100 WBC (Bld) 0.78 % [facility] Neutrophils/100 WBC (Bld) 59 % 36 - 65 % [facility] Nucleated RBC/100 WBC (Bld) [Ratio] 0.0 % 0.0 per 100 WBC [facility] Segmented neutrophils/100 WBC (Bld) 4.22 % [facility] WBC other (Bld) [#/Vol] 7.1 [facility] CBC with Diffon 11-07-2024 Abs. Basophil 0.04 k/uL Normal 0.00-0.20 [facility] Comment on above: Performed By: #### B MP, LIVP, LIP #### [facility] [address] [place] [address] Char Belt Operator: Ion Jasso MD Abs.Imm.Granulocyte <0.03 Normal 0.00-0.30 [facility] Comment on above: Performed By: #### B MP, LIVP, LIP #### [facility] [address] [place] [address] Char Belt Operator: Ion Jasso MD Abs.Neutrophil (Seg) 4.22 k/uL Normal 1.50-8.10 [facility] Comment on above: Performed By: #### B MP, LIVP, LIP #### [address] [place] [address] Char Belt Operator: Ion Jasso MD Basophils/100 WBC (Bld) 1 % Normal 0-2 [facility] Comment on above: Performed By: #### B MP, LIVP, LIP #### [address] [place], [place] [address] Char Belt Operator: Ion Jasso MD Eosinophils (Bld) [#/Vol] 0.15 10*3/uL Normal 0.00-0.44 [facility] Comment on above: Performed By: #### B MP, LIVP, LIP #### [address] [place] [address] Char Belt Operator: Ion Jasso MD Eosinophils/100 WBC (Bld) 2 % Normal 1-4 [facility] Comment on above: Performed By: #### B LIZY LIVP, LIP #### [address] [place], [place] [address] Char Belt Operator: Ion Jasso MD Erythrocyte distribution width (RBC) [Ratio] 12.7 % Normal 11.8-14.4 [facility] Comment on above: Performed By: #### B MP LIVP, LIP #### [address] [place], [place] [address] Char Belt Operator: Ion Jasso MD Hematocrit (Bld) [Volume fraction] 39.3 % Normal 36.3-47.1 [facility] Comment on above: Performed By: #### B MP, LIVP, LIP #### [address] [place] [id number] Char Belt Operator: Ion Jasso MD Hemoglobin (Bld) [Mass/Vol] 12.9 g/dL Normal 11.9-15.1 [facility] Comment on above: Performed By: #### B MP, LIVP, LIP #### [address] [place] [address] Char Belt Operator: Ion Jasso MD Immature granulocytes/100 WBC (Bld) 0 % Normal 0 [facility] Comment on above: Performed By: #### B MP, LIVP, LIP #### [address] [place], [place] [id number] Char Belt Operator: Ion Jasso MD Lymphocytes (Bld) [#/Vol] 1.93 10*3/uL Normal 1.10-3.70 [facility] Comment on above: Performed By: #### B MP, LIVP, LIP #### [address] [place] [address] Char Belt Operator: Ion Jasso MD Lymphocytes/100 WBC (Bld) 27 % Normal 24-43 [facility] Comment on above: Performed By: #### B MP, LIVP, LIP #### [address] [place] [address] Char Belt Operator: Ion Jasso MD MCH (RBC) [Entitic mass] 33.0 pg Normal 25.2-33.5 [facility] Comment on above: Performed By: #### B MP, LIVP, LIP #### [address] [place], [place] [id number] Char Belt Operator: Ion Jasso MD MCHC (RBC) [Mass/Vol] 32.8 g/dL Normal 28.4-34.8 [facility] Comment on above: Performed By: #### B MP, LIVP, LIP #### [address] [place] [address] Char Belt Operator: Ion Jasso MD MCV (RBC) [Entitic vol] 100.5 fL Normal 82.6-102.9 [facility] Comment on above: Performed By: #### B MP, LIVP, LIP #### [facility] [address] [place] [address] Char Belt Operator: Ion Jasso MD Monocytes (Bld) [#/Vol] 0.78 10*3/uL Normal 0.10-1.20 [facility] Comment on above: Performed By: #### B MP, LIVP, LIP #### [address] [place], [place] [id number] Char Belt Operator: Ion Jasso MD Monocytes/100 WBC (Bld) 11 % Normal 3-12 [facility] Comment on above: Performed By: #### B MP, LIVP, LIP #### [address] [place] [address] Char Belt Operator: Ion Jasso MD Neutrophil (Seg) 59 % Normal 36-65 [facility] Comment on above: Performed By: #### B MP, LIVP, LIP #### [address] [place], [place] [id number] Char Belt Operator: Ion Jasso MD NRBC Automated 0.0 per 100 WBC Normal 0.0 [facility] Comment on above: Performed By: #### B MP, LIVP, LIP #### [address] [place], [place] [phone] Char Belt Operator: Ion Jasso MD Platelet mean volume (Bld) [Entitic vol] 10.4 fL Normal 8.1-13.5 [facility] Comment on above: Performed By: #### B MP, LIVP, LIP #### [address] [place] [address] Char Belt Operator: Ion Jasso MD Platelets (Bld) [#/Vol] 177 10*3/uL Normal 138-453 [facility] Comment on above: Performed By: #### B MP, LIVP, LIP #### [facility] [address] [place], [place] [id number] Char Belt Operator: Ion Jasso MD RBC (Bld) [#/Vol] 3.91 10*6/uL Low 3.95-5.[address] [facility] Comment on above: Performed By: #### B MP, LIVP, LIP #### [facility] [address] [place], [place] [id number] Char Belt Operator: Ion Jasso MD WBC (Bld) [#/Vol] 7.1 10*3/uL Normal 3.5-11.3 [facility] Comment on above: Performed By: #### B MP, LIVP, LIP #### [facility] [address] [place], [place] [id number] Char Belt Operator: Ion Jasso MD Comp Metabolic Pr/rfx MGon 0 11-07-2024 Albumin [Mass/Vol] 3.9 g/dL Normal 3.5-5.2 [facility] Comment on above: Performed By: #### B MP, LIVP, LIP #### [facility] [address] [place], [place] [phone] Char Belt Operator: Ion Jasso MD Albumin/Glob Ratio 1.7 Normal 1.0-2.5 [facility] Comment on above: Performed By: #### B MP, LIVP, LIP #### [facility] [address] [place], [place] [phone] Char Belt Operator: Ion Jasso MD Alkaline Phos 143 U/L High 35-104 [facility] Comment on above: Performed By: #### B MP, LIVP, LIP #### [facility] [address] [place], [place] [id number] Char Belt Operator: Ion Jasso MD ALT [Catalytic activity/Vol] 42 U/L High 10-35 [facility] Comment on above: Performed By: #### B MP, LIVP, LIP #### [facility] [address] [place] [address] Dr[place], [place] [phone] Char Belt Operator: Ion Jasso MD Anion gap [Moles/Vol] 10 mmol/L Normal 9-16 [facility] Comment on above: Performed By: #### B MP, LIVP, LIP #### [facility] [address] [place] [address] Dr. [place], [place] [phone] Char Belt Operator: Ion Jasso MD AST [Catalytic activity/Vol] 145 U/L High [facility] Comment on above: Performed By: #### B MP, LIVP, LIP #### [address] [place], [place] 38[address]383 Char Belt Operator: Ion Jasso MD Bilirubin [Mass/Vol] 0.3 mg/dL Normal 0.00-1.20 [facility] Comment on above: Performed By: #### B MP, LIVP, LIP #### [facility] [address] [place] [address] Dr. [place], [place] [phone] Char Belt Operator: Ion Jasso MD BUN/CRE Ratio 8 Low 9-20 [facility] Comment on above: Performed By: #### B MP, LIVP, LIP #### [facility] [address] [place] [address] Dr. [place], [place] [phone] Char Belt Operator: Ion Jasso MD Calcium [Mass/Vol] 9.1 mg/dL Normal 8.6-10.4 [facility] Comment on above: Performed By: #### B MP, LIVP, LIP #### [facility] [address] [place] [address] Dr. [place], [place] [phone] Char Belt Operator: Ion Jasso MD Chloride [Moles/Vol] 106 mmol/L Normal 98-107 [facility] Comment on above: Performed By: #### B MP, LIVP, LIP #### [facility] [address] [place] [address] [place] [address] Char Belt Operator: Ion Jasso MD CO2 [Moles/Vol] 23 mmol/L Normal 20-31 [facility] Comment on above: Performed By: #### B MP, LIVP, LIP #### [facility] [address] [place] [address] Char Belt Operator: Ion Jasso MD Creatinine [Mass/Vol] 0.8 mg/dL Normal 0.50-0.90 [facility] Comment on above: Performed By: #### B MP LIVP, LIP #### [facility] [address] [place] [address] Char Belt Operator: Ion Jasso MD GFR/1.73 sq M.predicted among non-blacks MDRD (S/P/Bld) [Vol rate/Area] mL/min/{1.73_m2} Normal >60 [facility] Comment on above: Result Comment: These [...] affects renal tubular secretion. Performed By: #### B MP LIVP, LIP #### [address] [place] [address] Char Belt Operator: Ion Jasso MD Glucose [Mass/Vol] 92 mg/dL Normal 74-99 [facility] Comment on above: Performed By: #### B MP LIVP, LIP #### [facility] [address] [place] [address] Char Belt Operator: Ion Jasso MD Potassium [Moles/Vol] 4.5 mmol/L Normal 3.7-5.3 [facility] Comment on above: Performed By: #### B MP, LIVP, LIP #### [facility] [address] [place] [address] Char Belt Operator: Ion Jasso MD Protein [Mass/Vol] 6.1 g/dL Low 6.6-8.7 [facility] Comment on above: Performed By: #### B MP, LIVP, LIP #### [facility] [address] [place] [address] Char Belt Operator: Ion Jasso MD Sodium [Moles/Vol] 139 mmol/L Normal 136-145 [facility] Comment on above: Performed By: #### B MP, LIVP, LIP #### [facility] [address] [place] [address] Char Belt Operator: Ion Jasso MD Urea nitrogen [Mass/Vol] 6 mg/dL Normal 6-20 [facility] Comment on above: Performed By: #### B MP, LIVP, LIP #### [facility] [address] [place] [address] Char Belt Operator: Ion Jasso MD Comprehensive Metabolic Pane l w/ Reflex to [facility] 11-07-2024 Albumin [Mass/Vol] 3.9 g/dL 3.5 - 5.2 g/dL [facility] Albumin/Globulin [Mass ratio] 1.7 {ratio} 1.0 - 2.5 [facility] ALP [Catalytic activity/Vol] 143 U/L High 35 - 104 U/L [facility] ALT [Catalytic activity/Vol] 42 U/L High 10 - 35 U/L [facility] Anion gap [Moles/Vol] 10 mmol/L 9 - 16 mmol/L [facility] AST [Catalytic activity/Vol] 145 U/L High 10 - 35 U/L [facility] Bilirubin [Mass/Vol] 0.3 mg/dL 0.00 - 1.20 mg/dL [facility] Calcium [Mass/Vol] 9.1 mg/dL 8.6 - 10. 4 mg/dL [facility] Chloride [Moles/Vol] 106 mmol/L 98 - 10 7 mmol/L [facility] CO2 [Moles/Vol] 23 mmol/L 20 - 31 mmol/L [facility] Creatinine [Mass/Vol] 0.8 mg/dL 0.50 - 0.90 mg/dL [facility] Kaylyn Prather - [facility] Comment on above: These results [...] that affects renal tubular secretion. Glucose [Mass/Vol] 92 mg/dL 74 - 99 mg/dL [facility] Potassium [Moles/Vol] 4.5 mmol/L 3.7 - 5.3 mmol/L [facility] Protein [Mass/Vol] 6.1 g/dL Low 6.6 - 8.7 g/dL [facility] Sodium [Moles/Vol] 139 mmol/L 136 - 145 mmol/L [facility] Urea nitrogen [Mass/Vol] 6 mg/dL 6 - 20 mg/dL [facility] Urea nitrogen/Creatinine [Mass ratio] 8 mg/mg Low 9 - 20 [facility] EKG Rhythm Stripon [facility] Lipaseon 11-07-2024 Lipase [Catalytic activity/Vol] 285 U/L High 13 - 60 U/L [facility] Lipase [Catalytic activity/Vol] 285 U/L High 13-60 [facility] Comment on above: Performed By: #### B MP, LIVP, LIP #### [facility] [address] [place] [address] Char Belt Operator: Ion Jasso MD No Panel Informationon 11-07 Interpretation and review of laboratory results Abnormal [facility] CBC with Auto Differentialon 11-06-2024 Basophils (Bld) [#/Vol] 0.08 10*3/uL [facility] Basophils/100 WBC (Bld) 1 % 0 - 2 % [facility] Eosinophils (Bld) [#/Vol] 0.10 10*3/uL [facility] Eosinophils/100 WBC (Bld) 1 % 1 - 4 % [facility] Erythrocyte distribution width (RBC) [Ratio] 12.2 % 11.8 - 14.4 % [facility] Hematocrit (Bld) [Volume fraction] 43.1 % 36.3 - 47.1 % [facility] Hemoglobin (Bld) [Mass/Vol] 14.5 g/dL 11.9 - 15.1 g/dL [facility] Immature granulocytes (Bld) [#/Vol] [facility] Immature granulocytes/100 WBC (Bld) 0 % 0 [facility] Interpretation and review of laboratory results Abnormal [facility] Lymphocytes/100 WBC (Bld) 21 % Low 24 - 43 % [facility] Lymphocytes/100 WBC (Bld) 1.66 % [facility] MCH (RBC) [Entitic mass] 32.9 pg 25.2 - 33.5 pg [facility] MCHC (RBC) [Mass/Vol] 33.6 g/dL 28.4 - 34.8 g/dL [facility] MCV (RBC) [Entitic vol] 97.7 fL 82.6 - 102.9 fL [facility] Monocytes/100 WBC (Bld) 12 % 3 - 12 % [facility] Monocytes/100 WBC (Bld) 0.96 % [facility] Neutrophils/100 WBC (Bld) 65 % 36 - 65 % [facility] Nucleated RBC/100 WBC (Bld) [Ratio] 0.0 % 0.0 per 100 WBC [facility] Platelet mean volume (Bld) [Entitic vol] 9.5 fL 8.1 - 13.5 fL [facility] Platelets (Bld) [#/Vol] 224 10*3/uL [facility] RBC (Bld) [#/Vol] 4.41 10*6/uL 3.95 - 5.11 m/uL [facility] Segmented neutrophils/100 WBC (Bld) 4.97 % [facility] WBC other (Bld) [#/Vol] 7.8 [facility] CBC with Diffon 11-06-2024 Abs. Basophil 0.08 k/uL Normal 0.00-0.20 [facility] Comment on above: Performed By: #### L IP, CDP, CP #### [facility] [address] [place], [place] [id number] Char Belt Operator: Ion Jasso MD Abs.Imm.Granulocyte <0.03 Normal 0.00-0.30 [facility] Comment on above: Performed By: #### L IP, CDP, CP #### [address] [place] [phone] Char Belt Operator: Ion Jasso MD Abs.Neutrophil (Seg) 4.97 k/uL Normal 1.50-8.10 [facility] Comment on above: Performed By: #### L IP, CDP, CP #### [address] [place] [address] Char Belt Operator: Ion Jasso MD Basophils/100 WBC (Bld) 1 % Normal 0-2 [facility] Comment on above: Performed By: #### L IP, CDP, CP #### [address] [place], [place] [id number] Char Belt Operator: Ion Jasso MD Eosinophils (Bld) [#/Vol] 0.10 10*3/uL Normal 0.00-0.44 [facility] Comment on above: Performed By: #### L IP, CDP, CP #### [address] [place], [place] [phone] Char Belt Operator: Ion Jasso MD Eosinophils/100 WBC (Bld) 1 % Normal 1-4 [facility] Comment on above: Performed By: #### L IP, CDP, CP #### [facility] [address] [place] [address] Char Belt Operator: Ion Jasso MD Erythrocyte distribution width (RBC) [Ratio] 12.2 % Normal 11.8-14.4 [facility] Comment on above: Performed By: #### L IP, CDP, CP #### [address] [place], [place] [address] Char Belt Operator: Ion Jasso MD Hematocrit (Bld) [Volume fraction] 43.1 % Normal 36.3-47.1 [facility] Comment on above: Performed By: #### L IP, CDP, CP #### [address] [place] [address] Char Belt Operator: Ion Jasso MD Hemoglobin (Bld) [Mass/Vol] 14.5 g/dL Normal 11.9-15.1 [facility] Comment on above: Performed By: #### L IP, CDP, CP #### [address] [place], [place] [address] Char Belt Operator: Ion Jasso MD Immature granulocytes/100 WBC (Bld) 0 % Normal 0 [facility] Comment on above: Performed By: #### L IP CDP, CP #### [address] [place], [place] [address] Char Belt Operator: Ion Jasso MD Lymphocytes (Bld) [#/Vol] 1.66 10*3/uL Normal 1.10-3.70 [facility] Comment on above: Performed By: #### L IP, CDP, CP #### [address] [place], [place] [phone] Char Belt Operator: Ion Jasso MD Lymphocytes/100 WBC (Bld) 21 % Low 24-43 [facility] Comment on above: Performed By: #### L IP, CDP, CP #### [address] [place], [place] [phone] Char Belt Operator: Ion Jasso MD MCH (RBC) [Entitic mass] 32.9 pg Normal 25.2-33.5 [facility] Comment on above: Performed By: #### L IP, CDP, CP #### [address] [place], [facility] ( Char Belt Operator: Ion Jasso MD MCHC (RBC) [Mass/Vol] 33.6 g/dL Normal 28.4-34.8 [facility] Comment on above: Performed By: #### L IP, CDP, CP #### [address] [place], [facility] Char Belt Operator: Ion Jasso MD MCV (RBC) [Entitic vol] 97.7 fL Normal 82.6-102.9 [facility] Comment on above: Performed By: #### L IP, CDP, CP #### [address] [place], [facility] Char Belt Operator: Ion Jasso MD Monocytes (Bld) [#/Vol] 0.96 10*3/uL Normal 0.10-1.20 [facility] Comment on above: Performed By: #### L IP, CDP, CP #### [address] [place], [facility] Char Belt Operator: Ion Jasso MD Monocytes/100 WBC (Bld) 12 % Normal 3-12 [facility] Comment on above: Performed By: #### L IP, CDP, CP #### [address] [place], [place] [phone] Char Belt Operator: Ion Jasso MD Neutrophil (Seg) 65 % Normal 36-65 [facility] Comment on above: Performed By: #### L IP, CDP, CP #### [address] [place], [facility] Char Belt Operator: Ion Jasso MD NRBC Automated 0.0 per 100 WBC Normal 0.0 [facility] Comment on above: Performed By: #### L IP CDP, CP #### [address] [place], [facility] Char Belt Operator: Ion Jasso MD Platelet mean volume (Bld) [Entitic vol] 9.5 fL Normal 8.1-13.5 [facility] Comment on above: Performed By: #### L IP, CDP, CP #### [address] [place], [facility] Char Belt Operator: Ion Jasso MD Platelets (Bld) [#/Vol] 224 10*3/uL Normal 138-453 [facility] Comment on above: Performed By: #### L WALTER ROONEY, CP #### [address] [place], [facility] Char Belt Operator: Ion Jasso MD RBC (Bld) [#/Vol] 4.41 10*6/uL Normal 3.95-5.11 [facility] Comment on above: Performed By: #### L IP CDP, CP #### [address] [place], [facility] Char Belt Operator: Ion Jasso MD WBC (Bld) [#/Vol] 7.8 10*3/uL Normal 3.5-11.3 [facility] Comment on above: Performed By: #### L IP CDP, CP #### [address] [place], [facility] Char Belt Operator: Ion Jasso MD [facility] Albumin/Globulin [Mass ratio] 1.5 {ratio} 1.0 - 2.5 [facility] ALP [Catalytic activity/Vol] 145 U/L High 35 - 104 U/L [facility] Est, Glom Filt Rate 84 - PINF [facility] Comment on above: These results [...] following therapy that affects renal tubular secretion. Urea nitrogen/Creatinine [Mass ratio] 9 mg/mg 9 - 20 [facility] Comp Metabolic Profon 2024 Albumin [Mass/Vol] 4.4 g/dL Normal 3.5-5.2 [facility] Comment on above: Performed By: #### L WALTER ROONEY, CP #### [address] [place] [address] Char Belt Operator: Ion Jasso MD ALT [Catalytic activity/Vol] 13 U/L Normal 10-35 [facility] Comment on above: Performed By: #### L TORIBIO CDP, CP #### [address] [place] [address] Char Belt Operator: Ion Jasso MD Anion gap [Moles/Vol] 12 mmol/L Normal 9-16 [facility] Comment on above: Performed By: #### L TORIBIO CDP, CP #### [address] [place] [address] Char Belt Operator: Ion Jasso MD AST [Catalytic activity/Vol] 26 U/L Normal 10-35 [facility] Comment on above: Performed By: #### L IP CDP, CP #### [address] [place] [address] Char Belt Operator: Ion Jasso MD Bilirubin [Mass/Vol] mg/dL Normal 0.00-1.20 [facility] Comment on above: Performed By: #### L IP CDP, CP #### [address] [place] [address] Char Belt Operator: Ion Jasso MD Calcium [Mass/Vol] 10.4 mg/dL Normal 8.6-10.4 [facility] Comment on above: Performed By: #### L IP, CDP, CP #### [address] [place], [place] [id number] Char Belt Operator: Ion Jasso MD Chloride [Moles/Vol] 104 mmol/L Normal 98-107 [facility] Comment on above: Performed By: #### L IP, CDP, CP #### [address] [place], [place] [id number] Char Belt Operator: Ion Jasso MD CO2 [Moles/Vol] 24 mmol/L Normal 20-31 [facility] Comment on above: Performed By: #### L IP, CDP, CP #### [address] [place], [place] [id number] Char Belt Operator: Ion Jasso MD Creatinine [Mass/Vol] 0.8 mg/dL Normal 0.50-0.90 [facility] Comment on above: Performed By: #### L IP, CDP, CP #### [address] [place], [place] [id number] [employer] Belt Operator: Ion Jasso MD Glucose [Mass/Vol] 97 mg/dL Normal 74-99 [facility] Comment on above: Performed By: #### L IP, CDP, CP #### [address] [place] [address] Char Belt Operator: Ion Jasso MD Potassium [Moles/Vol] 3.7 mmol/L Normal 3.7-5.3 [facility] Comment on above: Performed By: #### L IP, CDP, CP #### [address] [place], [place] [id number] Char Belt Operator: Ion Jasso MD Protein [Mass/Vol] 7.3 g/dL Normal 6.6-8.7 [facility] Comment on above: Performed By: #### L IP CDP, CP #### [facility] [address] [place] [address] [place] [address] Char Belt Operator: Ion Jasso MD Sodium [Moles/Vol] 140 mmol/L Normal 136-145 [facility] Comment on above: Performed By: #### L IP, CDP, CP #### [facility] [address] [place] [address] Char Belt Operator: Ion Jasso MD Urea nitrogen [Mass/Vol] 7 mg/dL Normal 6-20 [facility] Comment on above: Performed By: #### L TORIBIO CDP, CP #### [facility] [address] [place] [address] [place] [address] Char Belt Operator: Ion Jasso MD Albumin/Glob Ratio 1.5 Normal 1.0-2.5 [facility] Comment on above: Performed By: #### L WALTER ROONEY, CP #### [address] [place] [address] Char Belt Operator: Ion Jasso MD Alkaline Phos 145 U/L High 35-104 [facility] Comment on above: Performed By: #### L TORIBIO CDP, CP #### [facility] [address] [place] [address] [place] [address] Char Belt Operator: Ion Jasso MD BUN/CRE Ratio 9 Normal 9-20 [facility] Comment on above: Performed By: #### L IP CDP, CP #### [facility] [address] [place] [address] Char Belt Operator: Ion Jasso MD GFR/1.73 sq M.predicted among non-blacks MDRD (S/P/Bld) [Vol rate/Area] 84 mL/min/{1.73_m2} Normal >60 [facility] Comment on above: Result Comment: These [...] affects renal tubular secretion. Performed By: #### L WALTER ROONEY, CP #### [facility] [address] [place] [address] Char Belt Operator: Ion Jasso MD Lipaseon 11-06-2024 Lipase [Catalytic activity/Vol] 247 U/L High 13-60 [facility] Comment on above: Performed By: #### L WALTER ROONEY, CP #### [facility] [address] [place] [address] Char Belt Operator: Ion Jasso MD No Panel Informationon 11-06 Interpretation and review of laboratory results Abnormal [facility] Alanine aminotransferase [En zymatic activity/volume] in Serum or PlasmaOrdered By: Andrew Ponce on 10-28-2024 ALT [Catalytic activity/Vol] 10 U/L Normal 7-52 [facility] Comment on above: Performed By: #### C BC, LIPASE, BMP, HEPATIC #### [facility] [address] [place] [address] [facility] Albumin [Mass/volume] in Ser um or Plasma by Bromocresol green (BCG) dye binding methoOrdered By: Andrew Ponce on 10-28-2024 Albumin BCG dye [Mass/Vol] 4.5 g/dL 3.5-5.7 [facility] Alkaline phosphatase [Enzyma tic activity/volume] in Serum or PlasmaOrdered By: Andrew Ponce on 10-28-2024 ALP [Catalytic activity/Vol] 136 U/L High 34-104 [facility] Comment on above: Performed By: #### C BC, LIPASE, BMP, HEPATIC #### [facility] [address] [place] [address] Appearance of UrineOrdered B y: Andrew Ponce on 10-28-2024 Appearance (U) Clear Normal Clear [facility] Comment on above: Order Comment: Name Collection Type:: Voided Performed By: #### C BC, LIPASE, BMP, HEPATIC #### [address] Aspartate aminotransferase [ Enzymatic activity/volume] in Serum or PlasmaOrdered By: Andrew Ponce on 10-28-2024 AST [Catalytic activity/Vol] 18 U/L Normal 13-39 [facility] Comment on above: Performed By: #### C BC, LIPASE, BMP, HEPATIC #### [address] Bacteria [Presence] in Urine by AutomatedOrdered By: Andrew Ponce on 10-28-2024 Bacteria Auto Ql (U) Rare [HPF] None Seen [facility] Basic Metabolic Panelon 10-08 Creatinine Clr Calc Pharmacy 59.85 Normal [facility] Comment on above: Performed By: #### C BC, LIPASE, BMP, HEPATIC #### [address] GFR/1.73 sq M.predicted MDRD (S/P/Bld) [Vol rate/Area] mL/min/{1.73_m2} Normal [facility] Comment on above: Performed By: #### C BC, LIPASE, BMP, HEPATIC #### [place] [address] [place] Basophils [#/volume] in Bloo d by Automated countOrdered By: Andrew Ponce on 10-28-2024 Basophils (Bld) [#/Vol] 0.1 10*3/uL Normal 0.0-0.2 [facility] Comment on above: Result Comment: PERF ORMED BY: [place] [address] PATHOLOGIST HYDRODYNAMICS PROFESSOR TARA BENSON M.D. Performed By: #### C BC, LIPASE, BMP, HEPATIC #### [address] Basophils/100 leukocytes in Blood by Automated countOrdered By: Andrew Ponce on 10-28-2024 Basophils/100 WBC (Bld) 1.0 % Normal . [facility] Comment on above: Performed By: #### C BC, LIPASE, BMP, HEPATIC #### [facility] [address] Bilirubin Test strip Ql (U)O rdered By: Andrew Ponce on 10-28-2024 Bilirubin Ql (U) Negative Negative [facility] Bilirubin.direct [Mass/volum e] in Serum or PlasmaOrdered By: Andrew Ponce on 10-28-2024 Bilirubin.direct [Mass/Vol] 0.00 mg/dL Low 0.03-0.18 [facility] Comment on above: If the DBIL is less than 0.1, IBIL is not able to becalculated. Bilirubin.total [Mass/volume ] in Serum or PlasmaOrdered By: Andrew Ponce on 10-28-2024 Bilirubin [Mass/Vol] 0.3 mg/dL Normal 0.3-1.0 [facility] Comment on above: Performed By: #### C BC, LIPASE, BMP, HEPATIC #### [facility] [address] [place] [address] CT abdomen pelvis w conon CT abdomen pelvis w con [place] [address] CT Scan Report Signed Patient: Chioma Arciniega MR#: [id number] : 1970 Acct:[id number] Age/Sex: 54 / F ADM Date: 10/28/24 Loc: ER Room: Type: [facility] ER Attending Dr: Copies to: Andrew [...] Mendieta M.D. 10/28/2024 4:38 PM Dictation Location: [facility] Transcribed By: [facility] 10/28/24 1638 Dictated By: Cruzito Mendieta DO 10/28/24 1636 Signed By: 10/28/24 1638 Normal [facility] Calcium [Mass/volume] in Ser um or PlasmaOrdered By: Andrew Ponce on 10-28-2024 Calcium [Mass/Vol] 10.2 mg/dL Normal 8.6-10.3 [facility] Comment on above: Performed By: #### C BC, LIPASE, BMP, HEPATIC #### [facility] [address] Carbon dioxide, total [Moles /volume] in Serum or PlasmaOrdered By: Andrew Ponce on 10-28-2024 CO2 [Moles/Vol] 30.4 mmol/L Normal 21.0-31.0 [facility] Comment on above: Performed By: #### C BC, LIPASE, BMP, HEPATIC #### [facility] [address] [place] [address] [place] Chloride [Moles/volume] in S erika or PlasmaOrdered By: Andrew Ponce on 10-28-2024 Chloride [Moles/Vol] 104 mmol/L Normal 98-107 [facility] Comment on above: Performed By: #### C BC, LIPASE, BMP, HEPATIC #### [address] Color of Urine by AutoOrdere d By: Andrew Ponce on 10-28-2024 Color (U) Light-yellow Normal Yellow [facility] Comment on above: Order Comment: Name Collection Type:: Voided Performed By: #### C BC, LIPASE, BMP, HEPATIC #### [address] Complete Blood Count Auto Di ffon 10-28-2024 Mean Corpuscular HGB Conc 34.3 g/dL Normal 32.0-35.0 [facility] Comment on above: Performed By: #### C BC, LIPASE, BMP, HEPATIC #### [address] Monocytes/100 WBC (Bld) 19.51 % Normal 0.00-20.00 [facility] Comment on above: Performed By: #### C BC, LIPASE, BMP, HEPATIC #### [address] NRBC% 0.0 /100{WBC} Normal 0-0.5 [facility] Comment on above: Performed By: #### C BC, LIPASE, BMP, HEPATIC #### [address] White Blood Count 8.6 [CFU]/mL Normal 3.8-11.6 [facility] Comment on above: Performed By: #### C BC, LIPASE, BMP, HEPATIC #### [place] [address] [place] Creatinine [Mass/volume] in Serum or PlasmaOrdered By: Andrew Ponce on 10-28-2024 Creatinine [Mass/Vol] 0.84 mg/dL Normal 0.60-1.[address] [facility] Comment on above: Performed By: #### C BC, LIPASE, BMP, HEPATIC #### [place] [address] [place] Dipstick and Microscopicon 0 10-28-2024 Bacteria,Urine Rare Normal None Seen [facility] Comment on above: Order Comment: Name Collection Type:: Voided Performed By: #### C BC, LIPASE, BMP, HEPATIC #### [facility] [address] [place] [id number] [place] Bilirubin,Urine Negative Normal Negative [facility] Comment on above: Order Comment: Name Collection Type:: Voided Performed By: #### C BC, LIPASE, BMP, HEPATIC #### [facility] [address] Glucose Ql (U) Normal Normal Normal [facility] Comment on above: Order Comment: Name Collection Type:: Voided Performed By: #### C BC, LIPASE, BMP, HEPATIC #### [facility] [address] Hyaline Casts,Urine None Normal 0-8 [facility] Comment on above: Order Comment: Name Collection Type:: Voided Performed By: #### C BC, LIPASE, BMP, HEPATIC #### [address] Mucus,Urine Rare Normal [facility] Comment on above: Order Comment: Name Collection Type:: Voided Result Comment: PERF ORMED BY: [place] [address] PATHOLOGIST HYDRODYNAMICS PROFESSOR TARA BENSON M.D. Performed By: #### C BC, LIPASE, BMP, HEPATIC #### [address] Nitrite,Urine Negative Normal Negative [facility] Comment on above: Order Comment: Name Collection Type:: Voided Performed By: #### C BC, LIPASE, BMP, HEPATIC #### [place] [id number] [facility] Occult Blood,Urine 1+ Normal Negative [facility] Comment on above: Order Comment: Name Collection Type:: Voided Result Comment: PERF ORMED BY: [place] [address] PATHOLOGIST HYDRODYNAMICS PROFESSOR TARA BENSON M.D. Performed By: #### C BC, LIPASE, BMP, HEPATIC #### [place] [id number] [place] Protein,Urine Negative Normal Negative [facility] Comment on above: Order Comment: Name Collection Type:: Voided Performed By: #### C BC, LIPASE, BMP, HEPATIC #### [address] RBC,Urine 1-2 Normal 0-4 [facility] Comment on above: Order Comment: Name Collection Type:: Voided Performed By: #### C BC, LIPASE, BMP, HEPATIC #### [address] Specificy [place],Urine 1.017 Normal 1.001-1.03 0 [facility] Comment on above: Order Comment: Name Collection Type:: Voided Performed By: #### C BC, LIPASE, BMP, HEPATIC #### [address] Squamous Epithelial Cell,Urine 1-2 Normal 0-2 [facility] Comment on above: Order Comment: Name Collection Type:: Voided Performed By: #### C BC, LIPASE, BMP, HEPATIC #### [address] Urobilinogen,Urine Normal Normal Normal [facility] Comment on above: Order Comment: Name Collection Type:: Voided Performed By: #### C BC, LIPASE, BMP, HEPATIC #### [address] WBC,Urine 1-2 Normal 0-4 [facility] Comment on above: Order Comment: Name Collection Type:: Voided Performed By: #### C BC, LIPASE, BMP, HEPATIC #### [address] Eosinophils [#/volume] in Bl ood by Automated countOrdered By: Andrew Ponce on 10-28-2024 Eosinophils (Bld) [#/Vol] 0.1 10*3/uL Normal 0.0-0.45 [facility] Comment on above: Performed By: #### C BC, LIPASE, BMP, HEPATIC #### [address] Eosinophils/100 leukocytes i n Blood by Automated countOrdered By: Andrew Ponce on 10-28-2024 Eosinophils/100 WBC (Bld) 1.5 % Normal . [facility] Comment on above: Performed By: #### C BC, LIPASE, BMP, HEPATIC #### [facility] [address] Epithelial cells.squamous [# /area] in Urine sediment by Automated countOrdered By: Andrew Ponce on 10-28-2024 Epithelial cells.squamous Auto (Urine sed) [#/Area] 1-2 [HPF] 0-2 [facility] Erythrocyte distribution wid th [Ratio] by Automated countOrdered By: Andrew Ponce on 10-28-2024 Erythrocyte distribution width (RBC) [Ratio] 13.6 % Normal 11.9-15.3 [facility] Comment on above: Performed By: #### C BC, LIPASE, BMP, HEPATIC #### [facility] [address] Erythrocytes [#/area] in Uri ne sediment by Automated countOrdered By: Andrew Ponce on 10-28-2024 RBC Auto (Urine sed) [#/Area] 1-2 [HPF] 0-4 [facility] Erythrocytes [#/volume] in B lood by Automated countOrdered By: Andrew Ponce on 10-28-2024 RBC (Bld) [#/Vol] 4.30 10*6/uL Normal 3.60-5.00 [facility] Comment on above: Performed By: #### C BC, LIPASE, BMP, HEPATIC #### [facility] [address] Glomerular filtration rate [ Volume Rate/Area] in Serum, Plasma or Blood by CreatinineOrdered By: Andrew Ponce on 10-28-2024 Glomerular filtration rate [Volume Rate/Area] in Serum, Plasma or Blood by Creatinine > 60.0 mL/Min [facility] Glucose [Mass/volume] in Ser um or PlasmaOrdered By: Andrew Ponce on 10-28-2024 Glucose [Mass/Vol] 95 mg/dL Normal 70-100 [facility] Comment on above: ADA recommended refe rence rangeRandom Glucose Reference Range is dependent on time and content of last meal. Glucose of more than 200 mg/dL in a nonstressed, ambulatory subject supports the diagnosis of Diabetes Mellitus. Result Comment: [employer] [employer] om Glucose Reference Range is dependent on time and content of last meal. Glucose of more than 200 mg/dL in a nonstressed, ambulatory subject supports the diagnosis of Diabetes Mellitus. ADA recommended reference range Performed By: #### C BC, LIPASE, BMP, HEPATIC #### [facility] [address] Glucose [Mass/volume] in Uri ne by Test stripOrdered By: Andrew Ponce on 10-28-2024 Glucose Test strip (U) [Mass/Vol] Normal mg/dL Normal [facility] Hematocrit [Volume Fraction] of Blood by Automated countOrdered By: Andrew Ponce on 10-28-2024 Hematocrit (Bld) [Volume fraction] 42.2 % Normal 34.0-46.4 [facility] Comment on above: Performed By: #### C BC, LIPASE, BMP, HEPATIC #### [address] Hemoglobin Test strip Ql (U) Ordered By: Andrew Ponce on 10-28-2024 Hemoglobin Ql (U) 1+ High Negative [facility] Hemoglobin [Mass/volume] in BloodOrdered By: Andrew Ponce on 10-28-2024 Hemoglobin (Bld) [Mass/Vol] 14.5 g/dL Normal 11.8-15.4 [facility] Comment on above: Performed By: #### C BC, LIPASE, BMP, HEPATIC #### [facility] [address] Hepatic Panelon 10-28-2024 Albumin [Mass/Vol] 4.5 g/dL Normal 3.5-5.7 [facility] Comment on above: Performed By: #### C BC, LIPASE, BMP, HEPATIC #### [address] Bilirubin,Indirect 0.3 mg/dL Normal [facility] Comment on above: Performed By: #### C BC, LIPASE, BMP, HEPATIC #### [facility] [address] Bilirubin.indirect [Mass/Vol] 0.00 mg/dL Low 0.03-0.18 [facility] Comment on above: Result Comment: If t he DBIL is less than 0.1, IBIL is not able to be calculated. Performed By: #### C BC, LIPASE, BMP, HEPATIC #### [facility] [address] [place] [address] [place] Hyaline casts [#/area] in Ur ine sediment by Automated countOrdered By: Andrew Ponce on 10-28-2024 Hyaline casts Auto (Urine sed) [#/Area] None [LPF] 0-8 [facility] Ketones [Presence] in Urine by Test stripOrdered By: Andrew Ponce on 10-28-2024 Ketones Ql (U) Negative Normal Negative [facility] Comment on above: Order Comment: Name Collection Type:: Voided Performed By: #### C BC, LIPASE, BMP, HEPATIC #### [address] Leukocyte esterase [Presence ] in Urine by Test stripOrdered By: Andrew Ponce on 10-28-2024 Leukocyte esterase Test strip Ql (U) Negative Normal Negative [facility] Comment on above: Order Comment: Name Collection Type:: Voided Performed By: #### C BC, LIPASE, BMP, HEPATIC #### [place] [address] [place] Leukocytes [#/area] in Urine sediment by Automated countOrdered By: Andrew Ponce on 10-28-2024 WBC Auto (Urine sed) [#/Area] 1-2 [HPF] 0-4 [facility] Leukocytes [#/volume] correc aurelia for nucleated erythrocytes in Blood by Automated counOrdered By: Andrew Ponce on 10-28-2024 WBC corrected for nucl RBC Auto (Bld) [#/Vol] 8.6 10*3/uL 3.8-11.6 [facility] Leukocytes [#/volume] in Blo od by Automated countOrdered By: Andrew Ponce on 10-28-2024 WBC (Bld) [#/Vol] 8.6 10*3/uL Normal 3.8-11.6 [facility] Comment on above: Performed By: #### C BC, LIPASE, BMP, HEPATIC #### [address] Lipase [Enzymatic activity/v olume] in Serum or PlasmaOrdered By: Andrew Ponce on 10-28-2024 Lipase [Catalytic activity/Vol] 140.0 U/L High 11.0-82.0 [facility] Comment on above: Result Comment: PERF ORMED BY: [place] [address] PATHOLOGIST HYDRODYNAMICS PROFESSOR TARA BENSON M.D. Performed By: #### C BC, LIPASE, BMP, HEPATIC #### [address] Lymphocytes [#/volume] in Bl ood by Automated countOrdered By: Andrew Ponce on 10-28-2024 Lymphocytes (Bld) [#/Vol] 2.5 10*3/uL Normal 1.00-4.8 [facility] Comment on above: Performed By: #### C BC, LIPASE, BMP, HEPATIC #### [address] Lymphocytes/100 leukocytes i n Blood by Automated countOrdered By: Andrew Ponce on 10-28-2024 Lymphocytes/100 WBC (Bld) 28.8 % Normal . [facility] Comment on above: Performed By: #### C BC, LIPASE, BMP, HEPATIC #### [address] MCH [Entitic mass] by Automa aurelia countOrdered By: Andrew Ponce on 10-28-2024 MCH (RBC) [Entitic mass] 33.7 pg Normal 24.7-34.3 [facility] Comment on above: Performed By: #### C BC, LIPASE, BMP, HEPATIC #### [address] MCHC Auto (RBC) [Mass/Vol]Or dered By: Andrew Ponce on 08-22-2025 MCHC (RBC) [Mass/Vol] 34.3 g/dL 32.0-35.[address] [facility] MCV [Entitic volume] by Auto mated countOrdered By: Andrew Ponce on 10-28-2024 MCV (RBC) [Entitic vol] 98.2 fL Normal 80-100 [facility] Comment on above: Performed By: #### C BC, LIPASE, BMP, HEPATIC #### [facility] [address] [place] [address] Monocyte distribution width [Entitic volume] in Blood by AutomatedOrdered By: Andrew Ponce on 10-28-2024 Monocyte distribution width Auto (Bld) [Entitic vol] 19.51 % 0.00-20.00 [facility] Monocytes [#/volume] in Bloo d by Automated countOrdered By: Andrew Ponce on 10-28-2024 Monocytes (Bld) [#/Vol] 0.8 10*3/uL Normal 0.0-0.8 [facility] Comment on above: Performed By: #### C BC, LIPASE, BMP, HEPATIC #### [place] [address] [place] Monocytes/100 leukocytes in Blood by Automated countOrdered By: Andrew Ponce on 10-28-2024 Monocytes/100 WBC (Bld) 9.4 % Normal . [facility] Comment on above: Performed By: #### C BC, LIPASE, BMP, HEPATIC #### [address] Mucus [Presence] in Urine by AutomatedOrdered By: Andrew Ponce on 10-28-2024 Mucus Auto Ql (U) Rare [LPF] [facility] Neutrophils [#/volume] in Bl ood by Automated countOrdered By: Andrew Ponce on 10-28-2024 Neutrophils (Bld) [#/Vol] 5.1 10*3/uL Normal 1.8-7.7 [facility] Comment on above: Performed By: #### C BC, LIPASE, BMP, HEPATIC #### [facility] [address] [place] [address] [place] Neutrophils/100 leukocytes i n Blood by Automated countOrdered By: Andrew Ponce on 10-28-2024 Neutrophils/100 WBC (Bld) 59.3 % Normal . [facility] Comment on above: Performed By: #### C BC, LIPASE, BMP, HEPATIC #### [facility] [address] Nitrite Test strip Ql (U)Ord ered By: Andrew Ponce on 10-28-2024 Nitrite Ql (U) Negative Negative [facility] No Panel InformationOrdered By: Andrew Ponce on 10-28-2024 Pharmacy Creatinine Clearance (Chem 59.85 [facility] Nucleated erythrocytes [Pres ence] in Blood by Automated countOrdered By: Andrew Ponce on 10-28-2024 Nucleated RBC Auto Ql (Bld) 0.0 /100{WBC} 0-0.5 [facility] Platelet mean volume [Entiti c volume] in Blood by Automated countOrdered By: Andrew Ponce on 10-28-2024 Platelet mean volume (Bld) [Entitic vol] 8.0 fL Normal 6.3-10.7 [facility] Comment on above: Performed By: #### C BC, LIPASE, BMP, HEPATIC #### [facility] [address] Platelets [#/volume] in Bloo d by Automated countOrdered By: Anrdew Ponce on 10-28-2024 Platelets (Bld) [#/Vol] 258 10*3/uL Normal 150-450 [facility] Comment on above: Performed By: #### C BC, LIPASE, BMP, HEPATIC #### [facility] [address] [place] [address] [place] Potassium [Moles/volume] in Serum or PlasmaOrdered By: Andrew Ponce on 10-28-2024 Potassium [Moles/Vol] 3.7 mmol/L Normal 3.5-5.[address] [facility] Comment on above: Performed By: #### C BC, LIPASE, BMP, HEPATIC #### [facility] [address] Protein Test strip (U) [Mass /Vol]Ordered By: Andrew Ponce on 10-28-2024 Protein (U) [Mass/Vol] Negative Negative [facility] Protein [Mass/volume] in Ser um or PlasmaOrdered By: Andrew Ponce on 10-28-2024 Protein [Mass/Vol] 7.3 g/dL Normal 6.4-8.9 [facility] Comment on above: Performed By: #### C BC, LIPASE, BMP, HEPATIC #### [facility] [address] Serum globulin measurement b y calculation (mass/volume)Ordered By: Andrew Ponce on 10-28-2024 Globulin (S) [Mass/Vol] 2.8 g/dL [facility] Comment on above: Performed By: #### C BC, LIPASE, BMP, HEPATIC #### [address] Serum or plasma albumin/glob ulin mass ratioOrdered By: Andrew Ponce on 10-28-2024 Albumin/Globulin [Mass ratio] 1.6 {ratio} [facility] Comment on above: Performed By: #### C BC, LIPASE, BMP, HEPATIC #### [address] Serum or plasma anion gap de terminationOrdered By: Andrew Ponce on 10-28-2024 Anion gap [Moles/Vol] 8.3 mmol/L Normal 6.0-15.[address] [facility] Comment on above: Performed By: #### C BC, LIPASE, BMP, HEPATIC #### [address] Serum or plasma non-glucuron idated bilirubin measurement (mass/volume)Ordered By: Andrew Ponce on 10-28-2024 Bilirubin.indirect [Mass/Vol] 0.3 mg/dL [facility] Sodium [Moles/volume] in Ser um or PlasmaOrdered By: Andrew Ponce on 10-28-2024 Sodium [Moles/Vol] 139 mmol/L Normal 136-145 [facility] Comment on above: Performed By: #### C BC, LIPASE, BMP, HEPATIC #### [address] Specific gravity Test strip (U) [Rel density]Ordered By: Andrew Ponce on 10-28-2024 Specific gravity (U) [Rel density] 1.017 1.001-1.03 0 [facility] Urea nitrogen [Mass/volume] in Serum or PlasmaOrdered By: Andrew oPnce on 10-28-2024 Urea nitrogen [Mass/Vol] 10 mg/dL Normal 7-25 [facility] Comment on above: Performed By: #### C BC, LIPASE, BMP, HEPATIC #### [facility] [address] Urobilinogen Test strip (U) [Mass/Vol]Ordered By: Andrew Ponce on 10-28-2024 Urobilinogen (U) [Mass/Vol] Normal mg/dL Normal [facility] pH of Urine by Test stripOrd ered By: Andrew Ponce on 10-28-2024 pH (U) 6.0 [pH] Normal 5.0-9.0 [facility] Comment on above: Order Comment: Name Collection Type:: Voided Performed By: #### C BC, LIPASE, BMP, HEPATIC #### [facility] [address] ED Note-Physicianon 10-26-19 ED Note-Physician ED Note-Physician Basic Information Time Seen: Jeff MARSH, Marco A Sullivan. 10/24/2024 16:36 Chief Complaint x2 days of [...] States that she does follow-up with the [facility] for GI follow-up. Review of Systems No [...] Zepeda In 3 days 10/27/2024 EDT [address] [facility], [address] [address]- [phone] Business (1) Additional Instructions: Follow-up with your GI doctor. If you do not have 1 you may follow-up with Dr. Zepeda. Raji JENSEN In 3 days 10/27/2024 EDT [address] [place] [address]- Business (1) Additional Instructions: Follow-up with your primary care doctor. You do not have 1 you may follow-up with Dr. Jensen. Patient Education Chronic Pancreatitis Attestation Patient seen and evaluated by the physician assistant director of security. Attending physician was present in the emergency department and supervised care. This visit was performed by both the physician and an APC. I performed all aspects of the MDM as documented. This report was transcribed using voice recognition software. Every effort was made to ensure accuracy, however, inadvertently computerized oven technician mistakes may be present. Appropriate healthcare PPE was used in evaluating this patient. The patient was placed i (more content not included)... Normal [facility] Comment on above: Result Comment: Elec tronically Signed By: Marco A Aguilar PA-C\.br\Date and Time Signed: 10/24/24 18:47 EDT\.br\Electronically Co-Signed By: Darrel Ferrer DO\.br\Date and Time Co-Signed: 10/25/24 07:01 EDT BMPon 10-24-2024 Anion gap [Moles/Vol] 9 mmol/L Normal 6-16 [place] Comment on above: Performed By: #### 2 [id number] #### [facility] [address] [place] [address] BUN/Creat Ratio 10 No Units Normal 10-20 [facility] Comment on above: Performed By: #### 2 [id number] #### [facility] [address] [place] [address] Calcium [Mass/Vol] 9.9 mg/dL Normal 8.9-11.1 [facility] Comment on above: Performed By: #### 2 750498 #### [facility] [address] [place] [address] Chloride [Moles/Vol] 105 mmol/L Normal 101-111 [facility] Comment on above: Performed By: #### 2 [id number] #### [facility] [address] [place] [address] CO2 [Moles/Vol] 27 mmol/L Normal 21-31 [facility] Comment on above: Performed By: #### 2 516139 #### [facility] [address] [place] [address] Creatinine [Mass/Vol] 0.8 mg/dL Normal 0.5-1.3 [place] Comment on above: Performed By: #### 2 942383 #### [facility] [address] [place] [address] Glucose [Mass/Vol] 96 mg/dL Normal 55-199 [facility] Comment on above: Performed By: #### 2 103255 #### [facility] [address] [place] [address] Potassium [Moles/Vol] 4.0 mmol/L Normal 3.5-5.3 [place] Comment on above: Performed By: #### 2 110696 #### [facility] [address] [place] [address] Sodium [Moles/Vol] 137 mmol/L Normal 135-145 [facility] Comment on above: Performed By: #### 2 842894 #### [facility] [address] [place] [address] Urea nitrogen [Mass/Vol] 8 mg/dL Normal 5-21 [facility] Comment on above: Performed By: #### 2 228304 #### [facility] [address] [place] [address] CBC w/ Auto Diffon 5 Basophil Absolute 0.2 E9/L Normal 0.0-0.2 [facility] Comment on above: Performed By: #### 2 516989 #### [facility] [address] [place] [address] Basophils/100 WBC (Bld) 1.6 % Normal 0.0-2.0 [facility] Comment on above: Performed By: #### 2 289965 #### [facility] [address] [place] [address] Eos Absolute 0.2 E9/L Normal 0.0-0.5 [facility] Comment on above: Performed By: #### 2 555450 #### [facility] [address] [place] [address] Eosinophils/100 WBC (Bld) 1.8 % Normal 0.0-8.0 [facility] Comment on above: Performed By: #### 2 109043 #### [facility] [address] [place] [address] Erythrocyte distribution width (RBC) [Ratio] 13.4 % Normal 10.9-14.2 [facility] Comment on above: Performed By: #### 2 544585 #### [facility] [address] [place] [address] Hematocrit (Bld) [Volume fraction] 40.1 % Normal 34.0-46.0 [facility] Comment on above: Performed By: #### 2 577890 #### [facility] [address] [place] [address] Hemoglobin (Bld) [Mass/Vol] 14.0 g/dL Normal 12.0-16.0 [facility] Comment on above: Performed By: #### 2 640172 #### [facility] [address] [place] [address] Lymph Absolute 2.8 E9/L Normal 1.0-4.0 [facility] Comment on above: Performed By: #### 2 529015 #### [facility] [address] [place] [address] Lymphocytes/100 WBC (Bld) 28.5 % Normal 14.0-50.0 [facility] Comment on above: Performed By: #### 2 454433 #### [facility] [address] [place] [address] MCH (RBC) [Entitic mass] 34.4 pg High 27.0-34.0 [facility] Comment on above: Performed By: #### 2 369832 #### [facility] [address] [place] [address] MCHC (RBC) [Mass/Vol] 34.8 g/dL Normal 31.4-36.0 [place] Comment on above: Performed By: #### 2 496685 #### [facility] [address] [place] [address] MCV (RBC) [Entitic vol] 98.7 fL Normal 80.0-100.0 [facility] Comment on above: Performed By: #### 2 448353 #### [facility] [address] [place] [address] Harris Absolute 0.8 E9/L Normal 0.2-1.0 [facility] Comment on above: Performed By: #### 2 562680 #### [facility] [address] [place] [address] Monocytes/100 WBC (Bld) 8.3 % Normal 4.0-14.0 [facility] Comment on above: Performed By: #### 2 877155 #### [facility] [address] [place] [address] Neutro Absolute 5.9 E9/L Normal 2.0-7.5 [facility] Comment on above: Performed By: #### 2 404853 #### [facility] [address] [place] [address] Neutro Auto 59.8 % Normal 36.0-75.0 [facility] Comment on above: Performed By: #### 2 494657 #### [facility] [address] [place] [address] Platelet 274.0 E9/L Normal 150.0-500. 0 [facility] Comment on above: Performed By: #### 2 997251 #### [facility] [address] [place] [address] Platelet mean volume (Bld) [Entitic vol] 8.1 fL Normal 6.4-10.8 [facility] Comment on above: Performed By: #### 2 208031 #### [facility] [address] [place] [address] RBC 4.1 E12/L Low 4.3-5.9 [facility] Comment on above: Performed By: #### 2 138913 #### [facility] [address] [place] [address] WBC 9.9 E9/L Normal 4.0-11.0 [facility] Comment on above: Performed By: #### 2 592743 #### [facility] [address] [place] [address] ED Clinical Summaryon 2024 ED Clinical Summary ED Clinical Summary [address] [address] ED Clinical Summary Person Information Name: CHIOMA ARCINIEGA[place] Age: 54 Years : 1970 Sex: Female Language: Ghanaian PCP: NONE, XXXX Marital Status: Visit Id: [...] 10/24/2024 19:00:42 10/24/2024 19:00:42 10/24/2024 19:00:42 ADDRESS: [address] [place] [id number] [facility] DOC NOTES: MEDICAL INFORMATION: Prescriptions Given: Medications to Continue with No Changes Other Medications promethazine (promethazine 25 mg Tab) 1 Tablets By Mouth 3 times a day. Refills: 0. PATIENT EDUCATION INFORMATION: Instructions: Chronic Pancreatitis Follow up: With: Address: When: Tiffanie Zepeda [address] [place] [address] [phone] Business (1) In 3 days 10/27/2024 Comments: Follow-up with your GI doctor. If you do not have 1 you may follow-up with Dr. Zepeda. With: Address: When: Raji JENSEN [address] [place] [address] Business (1) In 3 days 10/27/2024 Comments: Follow-up with your primary care doctor. You do not have 1 you may follow-up with Dr. Jensen. DIAGNOSIS: Chronic pancreatitis Normal [facility] ED Patient Summaryon 025 ED Patient Summary ED Patient Summary [address] [address] Patient Discharge Instructions Person Information Name: CHIOMA ARCINIEGA Age: 54 Years Arrival Date: 10/24/2024 16:30:34 Discharge Diagnosis: Chronic pancreatitis Primary Care Physician: NONE, XXXX Provider Information Primary Provider: Darrel Ferrer DO [employer] Manager:Marco A Aguilar PA-C The exam and treatment you received in the Emergency Department were for an urgent problem and are not intended as complete care. It is important that you follow up with a doctor, nurse practitioner, or physician???s assistant director of security for ongoing care. If your symptoms become worse or you do not improve as expected and you are unable to reach your usual health care provider, you should return to the Emergency Department. We are available 24 hours a day. CHIOMA ARCINIEGA has been given the following list of patient education materials, prescriptions and follow-up instructions: Follow-up Instructions: With: Address: When: Tiffanie Zepeda [address] [place] [address], [facility] [address], [place] [phone] XD Nutrition (1) In 3 days 10/27/2024 Comments: Follow-up with your GI doctor. If you do not have 1 you may follow-up with Dr. Zepeda. With: Address: When: Raji JENSEN [address] [place] [phone] XD Nutrition (1) In 3 days 10/27/2024 Comments: Follow-up [...] opioids can be used to help relieve nkdgqayo-he-atsfyo pain and are often prescribed following a [...] program o (more content not included)... Normal [facility] Hep Func Panelon 10-24-2024 Albumin [Mass/Vol] 4.3 g/dL Normal 3.3-5.0 [facility] Comment on above: Performed By: #### 2 432776 #### [facility] [address] [place] [address] Albumin/Globulin [Mass ratio] 1.8 {ratio} Normal 1.1-2.2 [facility] Comment on above: Performed By: #### 2 383066 #### [facility] [address] [place] [address] Alk Phos 125 Int._Unit/L High 21-98 [facility] Comment on above: Performed By: #### 2 245940 #### [facility] [address] [place] [address] ALT 9 Int._Unit/L Normal 6-46 [facility] Comment on above: Performed By: #### 2 864240 #### [facility] [address] [place] [address] AST 18 Int._Unit/L Normal 5-43 [facility] Comment on above: Performed By: #### 2 126905 #### [facility] [address] [place] [address] Bili Direct 0.0 mg/dL Normal 0.0-0.4 [facility] Comment on above: Performed By: #### 2 338868 #### [facility] [address] [place] [address] Bili Indirect 0.2 mg/dL Normal 0.1-0.9 [facility] Comment on above: Performed By: #### 2 356818 #### [facility] [address] [place] [address] Bili Total 0.2 mg/dL Normal 0.0-1.1 [facility] Comment on above: Performed By: #### 2 843319 #### [facility] [address] [place] [address] Globulin (S) [Mass/Vol] 2.4 g/dL Normal 1.4-4.0 [facility] Comment on above: Performed By: #### 2 824403 #### [facility] [address] [place] [address] Protein [Mass/Vol] 6.7 g/dL Normal 6.0-7.8 [facility] Comment on above: Performed By: #### 2 518178 #### [facility] [address] [place] [address] Lipase Levelon 10-24-2024 Lipase Lvl 56 unit/L Normal -58 [facility] Comment on above: Performed By: #### 2 179276 #### [facility] [address] [place] [address] UA with Cult Rflxon 10-25-19 25 Color (U) Colorless Abnormal Yellow [facility] Comment on above: Result Comment: Micr oscopic readings are only performed on those samples that meet specific criteria set forth by [facility]. Performed By: #### 4 [id number] #### [facility] [address] [place] [address] Glucose (U) [Mass/Vol] Negative Normal Negative [facility] Comment on above: Performed By: #### 4 [id number] #### [facility] [address] [place] [address] Ketones Ql (U) Negative Normal Negative [facility] Comment on above: Performed By: #### 4 [id number] #### [facility] [address] [place] [address] UA Blood Negative Normal Negative [facility] Comment on above: Performed By: #### 4 [id number] #### [facility] [address] [place] [address] UA Clarity Clear Normal Clear [facility] Comment on above: Performed By: #### 4 [id number] #### [facility] [address] [place] [address] UA Leuk Est Negative Normal Negative [facility] Comment on above: Performed By: #### 4 [id number] #### [facility] [address] [place] [address] UA Nitrite Negative Normal Negative [facility] Comment on above: Performed By: #### 4 [id number] #### [facility] [address] [place] [address] UA pH 5.5 Invalid Interpretation Code 5.0-9.0 [facility] Comment on above: Performed By: #### 4 [id number] #### [facility] [address] [place] [address] UA Protein Negative Normal Negative [facility] Comment on above: Performed By: #### 4 [id number] #### [facility] [address] [place] [address] UA Spec Grav 1.006 Invalid Interpretation Code 1.005-1.03 0 [facility] Comment on above: Performed By: #### 4 [id number] #### [facility] [address] [place] [address] UA Urobilinogen Negative Normal Negative [facility] Comment on above: Performed By: #### 4 [id number] #### [facility] [address] [place] [address] Urobilinogen (U) [Mass/Vol] Negative Normal Negative [facility] Comment on above: Performed By: #### 4 [id number] #### [facility] [address] [place] [address] UA Spec Desc Clean Catch Normal [facility] Comment on above: Performed By: #### 4 [id number] #### [facility] [address] [place] [address] eGFRon 10-24-2024 eGFR 87 mL/min/1.73 m2 Normal >=59 [facility] Comment on above: Performed By: #### 1 [id number] #### [facility] [address] [place] [address] Alanine aminotransferase [En zymatic activity/volume] in Serum or PlasmaOrdered By: Diomedes Posadas on 10-19-2024 ALT [Catalytic activity/Vol] 9 U/L Normal 7-52 [facility] Comment on above: Performed By: #### C BC, LIPASE, BMP, HEPATIC #### [facility] [address] Albumin [Mass/volume] in Ser um or Plasma by Bromocresol green (BCG) dye binding methoOrdered By: Diomedes Posadas on 10-19-2024 Albumin BCG dye [Mass/Vol] 4.5 g/dL 3.5-5.7 [facility] Alkaline phosphatase [Enzyma tic activity/volume] in Serum or PlasmaOrdered By: Diomedes Posadas on 10-19-2024 ALP [Catalytic activity/Vol] 145 U/L High 34-104 [facility] Comment on above: Performed By: #### C BC, LIPASE, BMP, HEPATIC #### [address] Appearance of UrineOrdered B y: Diomedes Jjanand on 10-19-2024 Appearance (U) Clear Normal Clear [facility] Comment on above: Order Comment: Name Collection Type:: Voided Performed By: #### C BC, LIPASE, BMP, HEPATIC #### [address] Aspartate aminotransferase [ Enzymatic activity/volume] in Serum or PlasmaOrdered By: Diomedes Posadas on 10-19-2024 AST [Catalytic activity/Vol] 16 U/L Normal 13-39 [facility] Comment on above: Performed By: #### C BC, LIPASE, BMP, HEPATIC #### [facility] [address] Basic Metabolic Panelon 10-07 Creatinine Clr Calc Pharmacy 60.57 Normal [facility] Comment on above: Performed By: #### C BC, LIPASE, BMP, HEPATIC #### [address] GFR/1.73 sq M.predicted MDRD (S/P/Bld) [Vol rate/Area] mL/min/{1.73_m2} Normal [facility] Comment on above: Performed By: #### C BC, LIPASE, BMP, HEPATIC #### [address] Basophils [#/volume] in Bloo d by Automated countOrdered By: Diomedes Posadas on 10-19-2024 Basophils (Bld) [#/Vol] 0.1 10*3/uL Normal 0.0-0.2 [facility] Comment on above: Result Comment: PERF ORMED BY: [place] [address] PATHOLOGIST HYDRODYNAMICS PROFESSOR TARA BENSON M.D. Performed By: #### C BC, LIPASE, BMP, HEPATIC #### [address] Basophils/100 leukocytes in Blood by Automated countOrdered By: Diomedes Posadas on 10-19-2024 Basophils/100 WBC (Bld) 0.9 % Normal . [facility] Comment on above: Performed By: #### C BC, LIPASE, BMP, HEPATIC #### [address] Bilirubin Test strip Ql (U)O rdered By: Diomedes Posadas on 10-19-2024 Bilirubin Ql (U) Negative Negative [facility] Bilirubin.direct [Mass/volum e] in Serum or PlasmaOrdered By: Diomedes Posadas on 10-19-2024 Bilirubin.direct [Mass/Vol] 0.00 mg/dL Low 0.03-0.18 [facility] Comment on above: If the DBIL is less than 0.1, IBIL is not able to becalculated. Bilirubin.total [Mass/volume ] in Serum or PlasmaOrdered By: Diomedes Posadas on 10-19-2024 Bilirubin [Mass/Vol] 0.4 mg/dL Normal 0.3-1.0 [facility] Comment on above: Performed By: #### C BC, LIPASE, BMP, HEPATIC #### [address] [place] [address] [facility] CT abdomen pelvis w conon CT abdomen pelvis w con [facility] [place] [address] [place] [id number] Scan Report Signed Patient: Chioma Arciniega MR#: [id number] : 1970 Acct:[id number] Age/Sex: 54 / F ADM Date: 10/19/24 Loc: ER Room: Type: [facility] ER Attending Dr: Copies to: Diomedes Posadas APRN Ordering Provider: Diomedes Posadas APRN Date of Service: 10/19/24 CT/CT [...] Mendieta M.D. 10/19/2024 10:12 PM Dictation Location: [place] [address] Transcribed By: [facility] 10/19/242211 Dictated By: Cruzito Mendieta DO 10/19/242203 Signed By: 10/19/242211 Normal [facility] Calcium [Mass/volume] in Ser um or PlasmaOrdered By: Diomedes Posadas on 10-19-2024 Calcium [Mass/Vol] 9.8 mg/dL Normal 8.6-10.3 [facility] Comment on above: Performed By: #### C BC, LIPASE, BMP, HEPATIC #### [address] Carbon dioxide, total [Moles /volume] in Serum or PlasmaOrdered By: Diomedes Posadas on 10-19-2024 CO2 [Moles/Vol] 25.0 mmol/L Normal 21.0-31.0 [facility] Comment on above: Performed By: #### C BC, LIPASE, BMP, HEPATIC #### [address] Chloride [Moles/volume] in S erika or PlasmaOrdered By: Diomedes Posadas on 10-19-2024 Chloride [Moles/Vol] 106 mmol/L Normal 98-107 [facility] Comment on above: Performed By: #### C BC, LIPASE, BMP, HEPATIC #### [address] Color of Urine by AutoOrdere d By: Diomedes Posadas on 10-19-2024 Color (U) Colorless Normal Yellow [facility] Comment on above: Order Comment: Name Collection Type:: Voided Performed By: #### C BC, LIPASE, BMP, HEPATIC #### [address] Complete Blood Count Auto Di ffon 10-19-2024 Mean Corpuscular HGB Conc 33.7 g/dL Normal 32.0-35.0 [facility] Comment on above: Performed By: #### C BC, LIPASE, BMP, HEPATIC #### [place] [address] [place] Monocytes/100 WBC (Bld) 17.90 % Normal 0.00-20.00 [facility] Comment on above: Performed By: #### C BC, LIPASE, BMP, HEPATIC #### [address] NRBC% 0.0 /100{WBC} Normal 0-0.5 [facility] Comment on above: Performed By: #### C BC, LIPASE, BMP, HEPATIC #### [address] White Blood Count 11.2 [CFU]/mL Normal 3.8-11.6 [facility] Comment on above: Performed By: #### C BC, LIPASE, BMP, HEPATIC #### [address] Creatinine [Mass/volume] in Serum or PlasmaOrdered By: Diomedes Posadas on 10-19-2024 Creatinine [Mass/Vol] 0.83 mg/dL Normal 0.60-1.[address] [facility] Comment on above: Performed By: #### C BC, LIPASE, BMP, HEPATIC #### [address] ECG 12 lead ECGon 10-19-2024 ECG 12 lead ECG [facility] [place] [address] [place] [address] Electrocardiograph Report Signed Patient: Chioma Arciniega MR#: [id number] : 1970 Acct:[id number] Age/Sex: 54 / F ADM Date: 10/19/24 Loc: ER Room: Type: [facility] ER Attending Dr: Ordering Provider: Diomedes Posadas APRN Date of Service: 10/19/24 ECG/ECG [...] sinus rhythm Confirmed by Chi GARCIA DO ([id number]) on 10/20/2024 12:41:59 AM Referred By: Electronically Signed By: Chi GARCIA DO Transcribed By: MUS Signed By Chi Garcia DO 0 10/20/24 0042 Normal [facility] Eosinophils [#/volume] in Bl ood by Automated countOrdered By: Diomedes Posadas on 10-19-2024 Eosinophils (Bld) [#/Vol] 0.2 10*3/uL Normal 0.0-0.45 [facility] Comment on above: Performed By: #### C BC, LIPASE, BMP, HEPATIC #### [address] Eosinophils/100 leukocytes i n Blood by Automated countOrdered By: Diomedes Posadas on 10-19-2024 Eosinophils/100 WBC (Bld) 1.6 % Normal . [facility] Comment on above: Performed By: #### C BC, LIPASE, BMP, HEPATIC #### [address] Erythrocyte distribution wid th [Ratio] by Automated countOrdered By: Diomedes Posadas on 10-19-2024 Erythrocyte distribution width (RBC) [Ratio] 13.8 % Normal 11.9-15.3 [facility] Comment on above: Performed By: #### C BC, LIPASE, BMP, HEPATIC #### [address] Erythrocytes [#/volume] in B lood by Automated countOrdered By: Diomedes Posadas on 10-19-2024 RBC (Bld) [#/Vol] 4.37 10*6/uL Normal 3.60-5.00 [facility] Comment on above: Performed By: #### C BC, LIPASE, BMP, HEPATIC #### [address] Glucose [Mass/volume] in Ser um or PlasmaOrdered By: Diomedes Posadas on 10-19-2024 Glucose [Mass/Vol] 84 mg/dL Normal 70-100 [facility] Comment on above: ADA recommended refe rence rangeRandom Glucose Reference Range is dependent on time and content of last meal. Glucose of more than 200 mg/dL in a nonstressed, ambulatory subject supports the diagnosis of Diabetes Mellitus. Result Comment: [employer] [employer] om Glucose Reference Range is dependent on time and content of last meal. Glucose of more than 200 mg/dL in a nonstressed, ambulatory subject supports the diagnosis of Diabetes Mellitus. ADA recommended reference range Performed By: #### C BC, LIPASE, BMP, HEPATIC #### [address] Glucose [Mass/volume] in Uri ne by Test stripOrdered By: Diomedes Posadas on 10-19-2024 Glucose Test strip (U) [Mass/Vol] Normal mg/dL Normal [facility] Hematocrit [Volume Fraction] of Blood by Automated countOrdered By: Diomedes Posadas on 10-19-2024 Hematocrit (Bld) [Volume fraction] 42.9 % Normal 34.0-46.4 [facility] Comment on above: Performed By: #### C BC, LIPASE, BMP, HEPATIC #### [address] Hemoglobin Test strip Ql (U) Ordered By: Diomedes Posadas on 10-19-2024 Hemoglobin Ql (U) Negative Negative [facility] Hemoglobin [Mass/volume] in BloodOrdered By: Diomedes Posadas on 10-19-2024 Hemoglobin (Bld) [Mass/Vol] 14.4 g/dL Normal 11.8-15.4 [facility] Comment on above: Performed By: #### C BC, LIPASE, BMP, HEPATIC #### [address] Hepatic Panelon 10-19-2024 Albumin [Mass/Vol] 4.5 g/dL Normal 3.5-5.7 [facility] Comment on above: Performed By: #### C BC, LIPASE, BMP, HEPATIC #### [address] Bilirubin,Indirect 0.4 mg/dL Normal [facility] Comment on above: Performed By: #### C BC, LIPASE, BMP, HEPATIC #### [address] Bilirubin.indirect [Mass/Vol] 0.00 mg/dL Low 0.03-0.18 [facility] Comment on above: Result Comment: If t he DBIL is less than 0.1, IBIL is not able to be calculated. Performed By: #### C BC, LIPASE, BMP, HEPATIC #### [facility] [address] Ketones [Presence] in Urine by Test stripOrdered By: Diomedes Posadas on 10-19-2024 Ketones Ql (U) Negative Normal Negative [facility] Comment on above: Order Comment: Name Collection Type:: Voided Performed By: #### C BC, LIPASE, BMP, HEPATIC #### [facility] [address] Leukocyte esterase [Presence ] in Urine by Test stripOrdered By: Diomedes Posadas on 10-19-2024 Leukocyte esterase Test strip Ql (U) Negative Normal Negative [facility] Comment on above: Order Comment: Name Collection Type:: Voided Performed By: #### C BC, LIPASE, BMP, HEPATIC #### [address] Leukocytes [#/volume] correc aurelia for nucleated erythrocytes in Blood by Automated counOrdered By: Diomedes Posadas on 10-19-2024 WBC corrected for nucl RBC Auto (Bld) [#/Vol] 11.2 10*3/uL 3.8-11.6 [facility] Leukocytes [#/volume] in Blo od by Automated countOrdered By: Diomedes Posadas on 10-19-2024 WBC (Bld) [#/Vol] 11.2 10*3/uL Normal 3.8-11.6 [facility] Comment on above: Performed By: #### C BC, LIPASE, BMP, HEPATIC #### [address] Lipase [Enzymatic activity/v olume] in Serum or PlasmaOrdered By: Diomedes Posadas on 10-19-2024 Lipase [Catalytic activity/Vol] 198.0 U/L High 11.0-82.0 [facility] Comment on above: Result Comment: PERF ORMED BY: [place] [address] PATHOLOGIST HYDRODYNAMICS PROFESSOR TARA BENSON M.D. Performed By: #### C BC, LIPASE, BMP, HEPATIC #### [address] [place] [address] [place] Lymphocytes [#/volume] in Bl ood by Automated countOrdered By: Diomedes Posadas on 10-19-2024 Lymphocytes (Bld) [#/Vol] 3.3 10*3/uL Normal 1.00-4.8 [facility] Comment on above: Performed By: #### C BC, LIPASE, BMP, HEPATIC #### [facility] [address] [place] [address] Lymphocytes/100 leukocytes i n Blood by Automated countOrdered By: Diomedes Posadas on 10-19-2024 Lymphocytes/100 WBC (Bld) 29.1 % Normal . [facility] Comment on above: Performed By: #### C BC, LIPASE, BMP, HEPATIC #### [address] MCH [Entitic mass] by Automa aurelia countOrdered By: Diomedes Posadas on 10-19-2024 MCH (RBC) [Entitic mass] 33.0 pg Normal 24.7-34.3 [facility] Comment on above: Performed By: #### C BC, LIPASE, BMP, HEPATIC #### [address] MCHC Auto (RBC) [Mass/Vol]Or dered By: Diomedes Posadas on 10-19-2024 MCHC (RBC) [Mass/Vol] 33.7 g/dL 32.0-35.[address] [facility] MCV [Entitic volume] by Auto mated countOrdered By: Diomedes Posadas on 10-19-2024 MCV (RBC) [Entitic vol] 98.2 fL Normal 80-100 [facility] Comment on above: Performed By: #### C BC, LIPASE, BMP, HEPATIC #### [facility] [address] [place] [address] Monocyte distribution width [Entitic volume] in Blood by AutomatedOrdered By: Diomedes Posadas on 10-19-2024 Monocyte distribution width Auto (Bld) [Entitic vol] 17.90 % 0.00-20.00 [facility] Monocytes [#/volume] in Bloo d by Automated countOrdered By: Diomedes Posadas on 10-19-2024 Monocytes (Bld) [#/Vol] 1.0 10*3/uL High 0.0-0.8 [facility] Comment on above: Performed By: #### C BC, LIPASE, BMP, HEPATIC #### [facility] [address] [place] [address] [place] Monocytes/100 leukocytes in Blood by Automated countOrdered By: Diomedes Posadas on 10-19-2024 Monocytes/100 WBC (Bld) 8.6 % Normal . [facility] Comment on above: Performed By: #### C BC, LIPASE, BMP, HEPATIC #### [facility] [address] [place] [address] [place] Neutrophils [#/volume] in Bl ood by Automated countOrdered By: Diomedes Posadas on 10-19-2024 Neutrophils (Bld) [#/Vol] 6.7 10*3/uL Normal 1.8-7.7 [facility] Comment on above: Performed By: #### C BC, LIPASE, BMP, HEPATIC #### [facility] [address] [place] [address] [place] Neutrophils/100 leukocytes i n Blood by Automated countOrdered By: Diomedes Posadas on 10-19-2024 Neutrophils/100 WBC (Bld) 59.8 % Normal . [facility] Comment on above: Performed By: #### C BC, LIPASE, BMP, HEPATIC #### [facility] [address] [place] [address] [place] Nitrite Test strip Ql (U)Ord ered By: Diomedes Posadas on 10-19-2024 Nitrite Ql (U) Negative Negative [facility] No Panel InformationOrdered By: Diomedes Posadas on 10-19-2024 Estimated GFR (CKD-EPI) > 60.0 mL/Min [facility] Creatinine Clearance (Chem 60.57 [facility] Nucleated erythrocytes [Pres ence] in Blood by Automated countOrdered By: Diomedes Posadas on 10-19-2024 Nucleated RBC Auto Ql (Bld) 0.0 /100{WBC} 0-0.5 [facility] Platelet mean volume [Entiti c volume] in Blood by Automated countOrdered By: Diomedes Posadas on 10-19-2024 Platelet mean volume (Bld) [Entitic vol] 7.5 fL Normal 6.3-10.7 [facility] Comment on above: Performed By: #### C BC, LIPASE, BMP, HEPATIC #### [facility] [address] Platelets [#/volume] in Bloo d by Automated countOrdered By: Diomedes Posadas on 10-19-2024 Platelets (Bld) [#/Vol] 281 10*3/uL Normal 150-450 [facility] Comment on above: Performed By: #### C BC, LIPASE, BMP, HEPATIC #### [address] Potassium [Moles/volume] in Serum or PlasmaOrdered By: Diomedes Posadas on 10-19-2024 Potassium [Moles/Vol] 3.9 mmol/L Normal 3.5-5.[address] [facility] Comment on above: Performed By: #### C BC, LIPASE, BMP, HEPATIC #### [address] Protein Test strip (U) [Mass /Vol]Ordered By: Diomedes Posadas on 10-19-2024 Protein (U) [Mass/Vol] Negative Negative [facility] Protein [Mass/volume] in Ser um or PlasmaOrdered By: Diomedes Posadas on 10-19-2024 Protein [Mass/Vol] 7.3 g/dL Normal 6.4-8.9 [facility] Comment on above: Performed By: #### C BC, LIPASE, BMP, HEPATIC #### [address] Serum globulin measurement b y calculation (mass/volume)Ordered By: Diomedes Posadas on 10-19-2024 Globulin (S) [Mass/Vol] 2.8 g/dL Normal [facility] Comment on above: Performed By: #### C BC, LIPASE, BMP, HEPATIC #### [address] [place] [address] [place] Serum or plasma albumin/glob ulin mass ratioOrdered By: Diomedes Posadas on 10-19-2024 Albumin/Globulin [Mass ratio] 1.6 {ratio} Normal [facility] Comment on above: Performed By: #### C BC, LIPASE, BMP, HEPATIC #### [address] Serum or plasma anion gap de terminationOrdered By: Diomedes Posadas on 10-19-2024 Anion gap [Moles/Vol] 11.9 mmol/L Normal 6.0-15.0 [facility] Comment on above: Performed By: #### C BC, LIPASE, BMP, HEPATIC #### [address] Serum or plasma non-glucuron idated bilirubin measurement (mass/volume)Ordered By: Diomedes Posadas on 10-19-2024 Bilirubin.indirect [Mass/Vol] 0.4 mg/dL [facility] Sodium [Moles/volume] in Ser um or PlasmaOrdered By: Diomedes Posadas on 10-19-2024 Sodium [Moles/Vol] 139 mmol/L Normal 136-145 [facility] Comment on above: Performed By: #### C BC, LIPASE, BMP, HEPATIC #### [address] Specific gravity Test strip (U) [Rel density]Ordered By: Diomedes Posadas on 10-19-2024 Specific gravity (U) [Rel density] 1.007 1.001-1.03 0 [facility] Urea nitrogen [Mass/volume] in Serum or PlasmaOrdered By: Diomedes Posadas on 10-19-2024 Urea nitrogen [Mass/Vol] 11 mg/dL Normal 7-25 [facility] Comment on above: Performed By: #### C BC, LIPASE, BMP, HEPATIC #### [address] Urinalysison 10-19-2024 Bilirubin,Urine Negative Normal Negative [facility] Comment on above: Order Comment: Name Collection Type:: Voided Performed By: #### C BC, LIPASE, BMP, HEPATIC #### [address] Glucose Ql (U) Normal Normal Normal [facility] Comment on above: Order Comment: Name Collection Type:: Voided Performed By: #### C BC, LIPASE, BMP, HEPATIC #### [address] Nitrite,Urine Negative Normal Negative [facility] Comment on above: Order Comment: Name Collection Type:: Voided Performed By: #### C BC, LIPASE, BMP, HEPATIC #### [address] Occult Blood,Urine Negative Normal Negative [facility] Comment on above: Order Comment: Name Collection Type:: Voided Result Comment: PERF ORMED BY: [place] [address] PATHOLOGIST HYDRODYNAMICS PROFESSOR TARA BENSON M.D. Performed By: #### C BC, LIPASE, BMP, HEPATIC #### [address] Protein,Urine Negative Normal Negative [facility] Comment on above: Order Comment: Name Collection Type:: Voided Performed By: #### C BC, LIPASE, BMP, HEPATIC #### [address] Specificy [place],Urine 1.007 Normal 1.001-1.03 0 [facility] Comment on above: Order Comment: Name Collection Type:: Voided Performed By: #### C BC, LIPASE, BMP, HEPATIC #### [address] Urobilinogen,Urine Normal Normal Normal [facility] Comment on above: Order Comment: Name Collection Type:: Voided Performed By: #### C BC, LIPASE, BMP, HEPATIC #### [address] Urobilinogen Test strip (U) [Mass/Vol]Ordered By: Diomedes Posadas on 10-19-2024 Urobilinogen (U) [Mass/Vol] Normal mg/dL Normal [facility] pH of Urine by Test stripOrd ered By: Diomedes Posadas on 10-19-2024 pH (U) 5.5 [pH] Normal 5.0-9.0 [facility] Comment on above: Order Comment: Name Collection Type:: Voided Performed By: #### C BC, LIPASE, BMP, HEPATIC #### [facility] [address] [place] [id number] [facility] ED Note-Physicianon 10-16-19 ED Note-Physician ED Note-Physician Basic Information Time Seen: Jeff MARSH, Marco A Sullivan. 10/09/2024 13:33 Chief Complaint pt reports hx [...] Patient seen and evaluated by the physician assistant director of security. Attending physician was present in the emergency department and supervised care. This visit was performed by both the physician and an APC. I performed all aspects of the MDM as documented. This report was transcribed using voice recognition software. Every effort was made to ensure accuracy, however, inadvertently computerized oven technician mistakes may be present. Appropriate healthcare PPE [...] promethazine 2 (more content not included)... Normal [facility] Comment on above: Result Comment: Elec tronically Signed By: Jeff MARSH, Marco A Shaver\.br\Date and Time Signed: 10/09/24 16:16 EDT\.br\Electronically Co-Signed By: Ish Stokes MD\.br\Date and Time Co-Signed: 10/15/24 08:10 EDT APTTon 10-11-2024 aPTT Coag (Bld) [Time] 28 s Normal 26-37 [facility] Comment on above: Performed By: #### 8 9579-7, 33817-4, 5643-2, 63932-2, LIVR, 3040-3, CBCA, BMP #### [facility] ([id number]) [address] [place] [address], [place] [address] BASIC METABOLIC PANELon 08-0 Anion gap [Moles/Vol] 5 mmol/L Normal 5-15 [facility] Comment on above: Performed By: #### 8 9579-7, 33721-3, 5643-2, 35965-4, LIVR, 3040-3, CBCA, BMP #### [facility] ([id number]) [address] [place] [address] Calcium [Mass/Vol] 9.3 mg/dL Normal 8.5-10.5 [facility] Comment on above: Performed By: #### 8 9579-7, 30482-6, 5643-2, 33616-1, LIVR, 3040-3, CBCA, BMP #### [facility] ([id number]) [address] [place] [address] 29772 Chloride [Moles/Vol] 106 mmol/L Normal 98-109 [facility] Comment on above: Performed By: #### 8 9579-7, 24352-9, 5643-2, 50634-1, LIVR, 3040-3, CBCA, BMP #### [facility] ([id number]) [address] [place] [address] 15223 CO2 [Moles/Vol] 25 mmol/L Normal 22-32 [facility] Comment on above: Performed By: #### 8 9579-7, 11963-9, 5643-2, 42176-7, LIVR, 3040-3, CBCA, BMP #### [facility] ([id number]) [address] [place] [address] 74651 Creatinine [Mass/Vol] 0.80 mg/dL Normal 0.40-1.00 [facility] Comment on above: Result Comment: METH OD TRACEABLE TO IDMS STANDARD Performed By: #### 8 9579-7, 05421-7, 5643-2, 92708-5, LIVR, 3040-3, CBCA, BMP #### [facility] ([id number]) [address] [place] [address] 06467 GFR/1.73 sq M.predicted among non-blacks MDRD (S/P/Bld) [Vol rate/Area] 87 mL/min/{1.73_m2} Normal >=60 [facility] Comment on above: Result Comment: eGFR not reported due to non-numeric value for Creatinine. Reported eGFR is based on the CKD-EPI 202 equation that does not use a race coefficient. Performed By: #### 8 9579-7, 53494-2, 5643-2, 43578-6, LIVR, 3040-3, CBCA, BMP #### [facility] ([id number]) [address] [place] [address] 21444 Glucose [Mass/Vol] 98 mg/dL Normal 65-99 [facility] Comment on above: Performed By: #### 8 9579-7, 71927-4, 5643-2, 34351-3, LIVR, 3040-3, CBCA, BMP #### [facility] ([id number]) [address] [place] [address] 43138 Potassium [Moles/Vol] 3.9 mmol/L Normal 3.5-5.0 [facility] Comment on above: Performed By: #### 8 9579-7, 75577-1, 5643-2, 04293-1, LIVR, 3040-3, CBCA, BMP #### [facility] ([id number]) [address] [place] [address] 55029 Sodium [Moles/Vol] 136 mmol/L Normal 134-146 [facility] Comment on above: Performed By: #### 8 9579-7, 06466-6, 5643-2, 81362-9, LIVR, 3040-3, CBCA, BMP #### [facility] ([id number]) [address] [place] [address] 53959 Urea nitrogen [Mass/Vol] 10 mg/dL Normal 5-23 [facility] Comment on above: Performed By: #### 8 9579-7, 56006-0, 5643-2, 91695-1, LIVR, 3040-3, CBCA, BMP #### [facility] ([id number]) [address] [place] [address] 46044 CBC WITH AUTO DIFFERENTIALon 10-11-2024 BASOPHILS ABSOLUTE COUNT (10*3/UL) BY AUTOMATED COUNT 0.1 10*3/uL Normal 0.0-0.2 [facility] Comment on above: Performed By: #### 8 9579-7, 48473-4, 5643-2, 17598-0, LIVR, 3040-3, CBCA, BMP #### [facility] ([id number]) [address] [place] [address] 41992 BASOPHILS RELATIVE PERCENT BY AUTOMATED COUNT 0.9 % Normal [facility] Comment on above: Performed By: #### 8 9579-7, 28124-7, 5643-2, 10394-1, LIVR, 3040-3, CBCA, BMP #### [facility] ([id number]) [address] [place] [address] 74843 CELLAVISION DIFFERENTIAL TYPE AUTOMATED DIFFERENTIAL Normal [facility] Comment on above: Performed By: #### 8 9579-7, 20415-5, 5643-2, 56581-5, LIVR, 3040-3, CBCA, BMP #### [facility] ([id number]) [address] [place] [address] 49293 Eosinophils (Bld) [#/Vol] 0.2 10*3/uL Normal 0.0-0.4 [facility] Comment on above: Performed By: #### 8 9579-7, 17799-9, 5643-2, 02321-4, LIVR, 3040-3, CBCA, BMP #### [facility] ([id number]) [address] [place] [address] 85576 EOSINOPHILS RELATIVE PERCENT BY AUTOMATED COUNT 2.8 % Normal [facility] Comment on above: Performed By: #### 8 9579-7, 18875-5, 5643-2, 36826-4, LIVR, 3040-3, CBCA, BMP #### [facility] ([id number]) [address] [place] [address] 44950 Erythrocyte distribution width (RBC) [Ratio] 13.6 % Normal 11.5-15 [facility] Comment on above: Performed By: #### 8 9579-7, 12604-8, 5643-2, 96481-4, LIVR, 3040-3, CBCA, BMP #### [facility] ([id number]) [address] [place] [address] 84847 Hematocrit (Bld) [Volume fraction] 40.5 % Normal 35-47 [facility] Comment on above: Performed By: #### 8 9579-7, 39378-4, 5643-2, 29808-7, LIVR, 3040-3, CBCA, BMP #### [facility] ([id number]) [address] [place] [address] 73035 Hemoglobin (Bld) [Mass/Vol] 13.9 g/dL Normal 11.7-15.5 [facility] Comment on above: Performed By: #### 8 9579-7, 44279-4, 5643-2, 71646-4, LIVR, 3040-3, CBCA, BMP #### [facility] ([id number]) [address] [place] [address] 60515 LYMPHOCYTES ABSOLUTE COUNT (10*3/UL) BY AUTOMATED COUNT 2.1 10*3/uL Normal 1.0-3.5 [facility] Comment on above: Performed By: #### 8 9579-7, 28907-2, 5643-2, 21156-4, LIVR, 3040-3, CBCA, BMP #### [facility] ([id number]) [address] [place] [address] 52983 LYMPHOCYTES RELATIVE PERCENT BY AUTOMATED COUNT 23.7 % Normal [facility] Comment on above: Performed By: #### 8 9579-7, 03127-6, 5643-2, 38509-1, LIVR, 3040-3, CBCA, BMP #### [facility] ([id number]) [address] [place] [address] 09982 MCH (RBC) [Entitic mass] 33.2 pg Normal 27-34 [facility] Comment on above: Performed By: #### 8 9579-7, 25049-0, 5643-2, 55185-2, LIVR, 3040-3, CBCA, BMP #### [facility] ([id number]) [address] [place] [address] 20672 MCHC (RBC) [Mass/Vol] 34.3 g/dL Normal 32-36 [facility] Comment on above: Performed By: #### 8 9579-7, 26246-6, 5643-2, 87520-1, LIVR, 3040-3, CBCA, BMP #### [facility] ([id number]) [address] [place] [address] 61411 MCV (RBC) [Entitic vol] 97 fL Normal 80-100 [facility] Comment on above: Performed By: #### 8 9579-7, 21729-6, 5643-2, 48968-9, LIVR, 3040-3, CBCA, BMP #### [facility] ([id number]) [address] [place] [address] 78823 MONOCYTES ABSOLUTE COUNT (10*3/UL) BY AUTOMATED COUNT 0.8 10*3/uL Normal 0.0-0.9 [facility] Comment on above: Performed By: #### 8 9579-7, 47525-5, 5643-2, 40849-1, LIVR, 3040-3, CBCA, BMP #### [facility] ([id number]) [address] [place] [address] 79601 MONOCYTES RELATIVE PERCENT BY AUTOMATED COUNT 8.9 % Normal [facility] Comment on above: Performed By: #### 8 9579-7, 90676-8, 5643-2, 78657-7, LIVR, 3040-3, CBCA, BMP #### [facility] ([id number]) [address] [place] [address] 78430 NEUTROPHILS ABSOLUTE COUNT BY AUTOMATED COUNT 5.6 10*3/uL Normal 1.5-6.6 [facility] Comment on above: Performed By: #### 8 9579-7, 90113-3, 5643-2, 10789-4, LIVR, 3040-3, CBCA, BMP #### [facility] ([id number]) [address] [place] [address] 26285 NEUTROPHILS RELATIVE PERCENT BY AUTOMATED COUNT 63.7 % Normal [facility] Comment on above: Performed By: #### 8 9579-7, 52902-6, 5643-2, 94054-3, LIVR, 3040-3, CBCA, BMP #### [facility] ([id number]) [address] [place] [address] 21873 Platelet mean volume (Bld) [Entitic vol] 7.7 fL Normal 7-12 [facility] Comment on above: Performed By: #### 8 9579-7, 36151-6, 5643-2, 14323-1, LIVR, 3040-3, CBCA, BMP #### [facility] ([id number]) [address] [place] [address] 83217 Platelets (Bld) [#/Vol] 244 10*3/uL Normal 150-450 [facility] Comment on above: Performed By: #### 8 9579-7, 90835-0, 5643-2, 40009-4, LIVR, 3040-3, CBCA, BMP #### [facility] ([id number]) [address] [place] [address] 91411 RBC COUNT 4.19 X10E12/L Normal 3.8-5.2 [facility] Comment on above: Performed By: #### 8 9579-7, 81960-7, 5643-2, 63605-2, LIVR, 3040-3, CBCA, BMP #### [facility] ([id number]) [address] [place] [address] 86566 WBC (Bld) [#/Vol] 8.8 10*3/uL Normal 4-11 [facility] Comment on above: Performed By: #### 8 9579-7, 74552-4, 5643-2, 54247-0, LIVR, 3040-3, CBCA, BMP #### [facility] ([id number]) [address] [place] [address] 39624 ETHANOLon 10-11-2024 Ethanol [Mass/Vol] mg/dL Normal <=0.080 [facility] Comment on above: Result Comment: This report is intended for use in clinical monitoring or management of patients. Performed By: #### 8 9579-7, 23261-1, 5643-2, 41802-5, LIVR, 3040-3, CBCA, BMP #### [facility] ([id number]) [address] [place] [address] 23616 LIPASEon 10-11-2024 Lipase [Catalytic activity/Vol] 49 U/L High 17-40 [facility] Comment on above: Performed By: #### 8 9579-7, 75994-0, 5643-2, 92170-3, LIVR, 3040-3, CBCA, BMP #### [facility] ([id number]) [address] [place] [address] 48552 LIVER PANELon 10-11-2024 Albumin [Mass/Vol] 3.9 g/dL Normal 3.2-5.3 [facility] Comment on above: Performed By: #### 8 9579-7, 70795-7, 5643-2, 53957-7, LIVR, 3040-3, CBCA, BMP #### [facility] ([id number]) [address] [place] [address] 54725 ALP [Catalytic activity/Vol] 111 U/L Normal 39-130 [facility] Comment on above: Performed By: #### 8 9579-7, 37281-8, 5643-2, 76649-5, LIVR, 3040-3, CBCA, BMP #### [facility] ([id number]) [address] [place] [address] 78694 ALT [Catalytic activity/Vol] 12 U/L Normal <=31 [facility] Comment on above: Performed By: #### 8 9579-7, 93355-7, 5643-2, 13622-4, LIVR, 3040-3, CBCA, BMP #### [facility] ([id number]) [address] [place] [address] 51487 AST [Catalytic activity/Vol] 22 U/L Normal <=41 [facility] Comment on above: Performed By: #### 8 9579-7, 98880-9, 5643-2, 32200-8, LIVR, 3040-3, CBCA, BMP #### [facility] ([id number]) [address] [place] [address] 30387 Bilirubin [Mass/Vol] 0.2 mg/dL Low 0.3-1.2 [facility] Comment on above: Performed By: #### 8 9579-7, 39678-6, 5643-2, 73773-1, LIVR, 3040-3, CBCA, BMP #### [facility] ([id number]) [address] [place] [address] 47280 Bilirubin.indirect [Mass/Vol] 0.1 mg/dL Normal <=0.4 [facility] Comment on above: Performed By: #### 8 9579-7, 09402-4, 5643-2, 72927-8, LIVR, 3040-3, CBCA, BMP #### [facility] ([id number]) [address] [place] [address] 22064 Protein [Mass/Vol] 6.8 g/dL Normal 6.0-8.0 [facility] Comment on above: Performed By: #### 8 9579-7, 60739-0, 5643-2, 50987-2, LIVR, 3040-3, CBCA, BMP #### [facility] ([id number]) [address] [place] [address] 37824 MAGNESIUMon 10-11-2024 Magnesium [Mass/Vol] 2.3 mg/dL Normal 1.8-2.6 [facility] Comment on above: Performed By: #### 8 9579-7, 36613-2, 5643-2, 69980-8, LIVR, 3040-3, CBCA, BMP #### [facility] ([id number]) [address] [place] [address] 61174 PROTIME AND INRon 10-11-2024 INR 0.9 Normal 0.9-1.2 [facility] Comment on above: Performed By: #### 8 9579-7, 23927-8, 5643-2, 75944-4, LIVR, 3040-3, CBCA, BMP #### [facility] ([id number]) [address] [place] [address] 47650 PT Coag (PPP) [Time] 10.3 s Normal 9.8-13.2 [facility] Comment on above: Performed By: #### 8 9579-7, 83178-8, 5643-2, 95368-5, LIVR, 3040-3, CBCA, BMP #### [facility] ([id number]) [address] [place] [id number] Abdomen/Pelvis w/ Contras ton 10-10-2024 CT [...] approximately 1 cm in caliber at the aptel hepatis. Pancreas: Nonspecific pancreatic duct dilatation to [...] Zepeda MD Transcribed by: ELMER Technologist: ANTONI Jones [facility] BMPon 10-09-2024 Anion gap [Moles/Vol] 12 mmol/L Normal 6-16 [place] Comment on above: Performed By: #### 2 [id number] #### [facility] [address] [place] [address] BUN/Creat Ratio 11 No Units Normal 10-20 [facility] Comment on above: Performed By: #### 2 [id number] #### [facility] [address] [place] [address] Calcium [Mass/Vol] 10.1 mg/dL Normal 8.9-11.1 [facility] Comment on above: Performed By: #### 2 [id number] #### [facility] [address] [place] [address] Chloride [Moles/Vol] 107 mmol/L Normal 101-111 [facility] Comment on above: Performed By: #### 2 [id number] #### [facility] [address] [place] [address] CO2 [Moles/Vol] 25 mmol/L Normal 21-31 [facility] Comment on above: Performed By: #### 2 [id number] #### [facility] [address] [place] [address] Creatinine [Mass/Vol] 0.8 mg/dL Normal 0.5-1.3 [place] Comment on above: Performed By: #### 2 [id number] #### [facility] [address] [place] [address] Glucose [Mass/Vol] 87 mg/dL Normal 55-199 [facility] Comment on above: Performed By: #### 2 [id number] #### [facility] [address] [place] [address] Potassium [Moles/Vol] 4.2 mmol/L Normal 3.5-5.3 [place] Comment on above: Performed By: #### 2 849888 #### [facility] [address] [place] [address] Sodium [Moles/Vol] 140 mmol/L Normal 135-145 [facility] Comment on above: Performed By: #### 2 953943 #### [facility] [address] [place] [address] Urea nitrogen [Mass/Vol] 9 mg/dL Normal 5-21 [facility] Comment on above: Performed By: #### 2 551273 #### [facility] [address] [place] [address] CBC w/ Auto Diffon 5 Basophil Absolute 0.1 E9/L Normal 0.0-0.2 [facility] Comment on above: Performed By: #### 2 733895 #### [facility] [address] [place] [address] Basophils/100 WBC (Bld) 0.9 % Normal 0.0-2.0 [facility] Comment on above: Performed By: #### 2 227841 #### [facility] [address] [place] [address] Eos Absolute 0.2 E9/L Normal 0.0-0.5 [facility] Comment on above: Performed By: #### 2 105399 #### [facility] [address] [place] [address] Eosinophils/100 WBC (Bld) 2.8 % Normal 0.0-8.0 [facility] Comment on above: Performed By: #### 2 361941 #### [facility] [address] [place] [address] Erythrocyte distribution width (RBC) [Ratio] 13.7 % Normal 10.9-14.2 [facility] Comment on above: Performed By: #### 2 814809 #### [facility] [address] [place] [address] Hematocrit (Bld) [Volume fraction] 44.7 % Normal 34.0-46.0 [facility] Comment on above: Performed By: #### 2 063418 #### [facility] [address] [place] [address] Hemoglobin (Bld) [Mass/Vol] 15.3 g/dL Normal 12.0-16.0 [facility] Comment on above: Performed By: #### 2 766951 #### [facility] [address] [place] [address] Lymph Absolute 2.4 E9/L Normal 1.0-4.0 [facility] Comment on above: Performed By: #### 2 916279 #### [facility] [address] [place] [address] Lymphocytes/100 WBC (Bld) 31.5 % Normal 14.0-50.0 [facility] Comment on above: Performed By: #### 2 815710 #### [facility] [address] [place] [address] MCH (RBC) [Entitic mass] 33.3 pg Normal 27.0-34.0 [facility] Comment on above: Performed By: #### 2 008689 #### [facility] [address] [place] [address] MCHC (RBC) [Mass/Vol] 34.3 g/dL Normal 31.4-36.0 [place] Comment on above: Performed By: #### 2 201569 #### [facility] [address] [place] [address] MCV (RBC) [Entitic vol] 97.0 fL Normal 80.0-100.0 [facility] Comment on above: Performed By: #### 2 809303 #### [facility] [address] [place] [address] Harris Absolute 0.7 E9/L Normal 0.2-1.0 [facility] Comment on above: Performed By: #### 2 459587 #### [facility] [address] [place] [address] Monocytes/100 WBC (Bld) 9.2 % Normal 4.0-14.0 [facility] Comment on above: Performed By: #### 2 752540 #### [facility] [address] [place] [address] Neutro Absolute 4.3 E9/L Normal 2.0-7.5 [facility] Comment on above: Performed By: #### 2 152312 #### [facility] [address] [place] [address] Neutro Auto 55.6 % Normal 36.0-75.0 [facility] Comment on above: Performed By: #### 2 532808 #### [facility] [address] [place] [address] Platelet 255.0 E9/L Normal 150.0-500. 0 [facility] Comment on above: Performed By: #### 2 200650 #### [facility] [address] [place] [address] Platelet mean volume (Bld) [Entitic vol] 7.7 fL Normal 6.4-10.8 [facility] Comment on above: Performed By: #### 2 061929 #### [facility] [address] [place] [address] RBC 4.6 E12/L Normal 4.3-5.9 [facility] Comment on above: Performed By: #### 2 776969 #### [facility] [address] [place] [address] WBC 7.7 E9/L Normal 4.0-11.0 [facility] Comment on above: Performed By: #### 2 840026 #### [facility] [address] [place] [address] ED Clinical Summaryon 2024 ED Clinical Summary ED Clinical Summary [address] [address] ED Clinical Summary Person Information Name: CHIOMA ARCINIEGA/[place] Age: 54 Years : 1970 Sex: Female Language: Ghanaian PCP: NONE, XXXX Marital Status: Visit Id: [...] 10/09/2024 17:59:13 10/09/2024 17:59:13 10/09/2024 17:59:13 ADDRESS: [address] [place] [id number] [facility] DOC NOTES: MEDICAL INFORMATION: Prescriptions Given: Medications to Continue with No Changes Other Medications promethazine (promethazine 25 mg Tab) 1 Tablets By Mouth 3 times a day. Refills: 0. PATIENT EDUCATION INFORMATION: Instructions: Chronic Pancreatitis Follow up: With: Address: When: [facility] [phone] In 3 days 10/12/2024 DIAGNOSIS: 1:Abdominal pain; Chronic pancreatitis Normal [facility] ED Patient Summaryon 025 ED Patient Summary ED Patient Summary [place] [id number] Patient Discharge Instructions Person Information Name: CHIOMA ARCINIEGA Age: 54 Years Arrival Date: 10/09/2024 13:21:49 Discharge Diagnosis: 1:Abdominal pain; Chronic pancreatitis Primary Care Physician: NONE, XXXX Provider Information Primary Provider: Ish Stokes MD [employer] Manager:Marco A Aguilar PA-C The exam and treatment you received in the Emergency Department were for an urgent problem and are not intended as complete care. It is important that you follow up with a doctor, nurse practitioner, or physician???s assistant director of security for ongoing care. If your symptoms become worse or you do not improve as expected and you are unable to reach your usual health care provider, you should return to the Emergency Department. We are available 24 hours a day. CHIOMA ARCINIEGA has been given the following list of patient education materials, prescriptions and follow-up instructions: Follow-up Instructions: With: Address: When: [facility] [phone] In 3 days 10/12/2024 In the event that this physician does not participate in your insurance network, please consult with your insurance company to find a nearby participating provider. Patient Education Materials: Chronic Pancreatitis A MESSAGE TO ALL PATIENTS REGARDING OPIOIDS PRESCRIPTION OPIOIDS: WHAT YOU NEED TO KNOW Prescription opioids can be used to help relieve blgroocj-wv-uevpof pain and are often prescribed following a [...] be struggling with addiction, tell your health weekend caregiver and ask for guidance or call [facility] (more content not included)... Normal [facility] Hep Func Panelon 10-09-2024 Albumin [Mass/Vol] 4.5 g/dL Normal 3.3-5.0 [facility] Comment on above: Performed By: #### 2 171253 #### [facility] [address] [place] [address] Albumin/Globulin [Mass ratio] 1.6 {ratio} Normal 1.1-2.2 [facility] Comment on above: Performed By: #### 2 430762 #### [facility] [address] [place] [address] Alk Phos 114 Int._Unit/L High 21-98 [facility] Comment on above: Performed By: #### 2 339712 #### [facility] [address] [place] [address] ALT 9 Int._Unit/L Normal 6-46 [facility] Comment on above: Performed By: #### 2 437896 #### [facility] [address] [place] [address] AST 18 Int._Unit/L Normal 5-43 [facility] Comment on above: Performed By: #### 2 542079 #### [facility] [address] [place] [address] Bili Direct 0.0 mg/dL Normal 0.0-0.4 [facility] Comment on above: Performed By: #### 2 974905 #### [facility] [address] [place] [address] Bili Indirect 0.3 mg/dL Normal 0.1-0.9 [facility] Comment on above: Performed By: #### 2 648027 #### [facility] [address] [place] [address] Bili Total 0.3 mg/dL Normal 0.0-1.1 [facility] Comment on above: Performed By: #### 2 971557 #### [facility] [address] [place] [address] Globulin (S) [Mass/Vol] 2.8 g/dL Normal 1.4-4.0 [facility] Comment on above: Performed By: #### 2 575149 #### [facility] [address] [place] [address] Protein [Mass/Vol] 7.3 g/dL Normal 6.0-7.8 [facility] Comment on above: Performed By: #### 2 591262 #### [facility] [address] [place] [address] Lipase Levelon 10-09-2024 Lipase Lvl 98 unit/L High 13-58 [facility] Comment on above: Performed By: #### 2 141500 #### [facility] [address] [place] [address] UA with Cult Rflxon 10-10-19 25 Color (U) Colorless Abnormal Yellow [facility] Comment on above: Result Comment: Micr oscopic readings are only performed on those samples that meet specific criteria set forth by [facility]. Performed By: #### 4 [id number] #### [facility] [address] [place] [address] Glucose (U) [Mass/Vol] Negative Normal Negative [facility] Comment on above: Performed By: #### 4 [id number] #### [facility] [address] [place] [address] Ketones Ql (U) Negative Normal Negative [facility] Comment on above: Performed By: #### 4 [id number] #### [facility] [address] [place] [address] UA Blood Negative Normal Negative [facility] Comment on above: Performed By: #### 4 [id number] #### [facility] [address] [place] [address] UA Clarity Clear Normal Clear [facility] Comment on above: Performed By: #### 4 [id number] #### [facility] [address] [place] [address] UA Leuk Est Negative Normal Negative [facility] Comment on above: Performed By: #### 4 [id number] #### [facility] [address] [place] [address] UA Nitrite Negative Normal Negative [facility] Comment on above: Performed By: #### 4 [id number] #### [facility] [address] [place] [address] UA pH 5.5 Invalid Interpretation Code 5.0-9.0 [facility] Comment on above: Performed By: #### 4 [id number] #### [facility] [address] [place] [address] UA Protein Negative Normal Negative [facility] Comment on above: Performed By: #### 4 [id number] #### [facility] [address] [place] [address] UA Spec Grav >1.050 Invalid Interpretation Code 1.005-1.03 0 [facility] Comment on above: Performed By: #### 4 [id number] #### [facility] [address] [place] [address] UA Urobilinogen Negative Normal Negative [facility] Comment on above: Performed By: #### 4 [id number] #### [facility] [address] [place] [address] Urobilinogen (U) [Mass/Vol] Negative Normal Negative [facility] Comment on above: Performed By: #### 4 [id number] #### [facility] [address] [place] [address] UA Spec Desc Clean Catch Normal [facility] Comment on above: Performed By: #### 4 [id number] #### [facility] [address] [place] [address] eGFRon 10-09-2024 eGFR 87 mL/min/1.73 m2 Normal >=59 [facility] Comment on above: Performed By: #### 1 [id number] #### [facility] [address] [place] [address] BMPon 10-03-2024 Anion gap [Moles/Vol] 10 mmol/L Normal 6-16 [place] Comment on above: Performed By: #### 2 689799 #### [facility] [address] [place] [address] BUN/Creat Ratio 11 No Units Normal 10-20 [facility] Comment on above: Performed By: #### 2 274255 #### [facility] [address] [place] [address] Calcium [Mass/Vol] 9.9 mg/dL Normal 8.9-11.1 [facility] Comment on above: Performed By: #### 2 224198 #### [facility] [address] [place] [address] Chloride [Moles/Vol] 107 mmol/L Normal 101-111 [facility] Comment on above: Performed By: #### 2 181601 #### [facility] [address] [place] [address] CO2 [Moles/Vol] 25 mmol/L Normal 21-31 [facility] Comment on above: Performed By: #### 2 284596 #### [facility] [address] [place] [address] Creatinine [Mass/Vol] 0.8 mg/dL Normal 0.5-1.3 [place] Comment on above: Performed By: #### 2 912332 #### [facility] [address] [place] [address] Glucose [Mass/Vol] 112 mg/dL Normal 55-199 [facility] Comment on above: Performed By: #### 2 655093 #### [facility] [address] [place] [address] Potassium [Moles/Vol] 3.6 mmol/L Normal 3.5-5.3 [place] Comment on above: Performed By: #### 2 799658 #### [facility] [address] [place] [address] Sodium [Moles/Vol] 138 mmol/L Normal 135-145 [facility] Comment on above: Performed By: #### 2 457267 #### [facility] [address] [place] [address] Urea nitrogen [Mass/Vol] 9 mg/dL Normal 5-21 [facility] Comment on above: Performed By: #### 2 098858 #### [facility] [address] [place] [address] CBC w/ Auto Diffon 5 Basophil Absolute 0.1 E9/L Normal 0.0-0.2 [facility] Comment on above: Performed By: #### 2 588352 #### [facility] [address] [place] [address] Basophils/100 WBC (Bld) 1.1 % Normal 0.0-2.0 [facility] Comment on above: Performed By: #### 2 216297 #### [facility] [address] [place] [address] Eos Absolute 0.1 E9/L Normal 0.0-0.5 [facility] Comment on above: Performed By: #### 2 118395 #### [facility] [address] [place] [address] Eosinophils/100 WBC (Bld) 1.4 % Normal 0.0-8.0 [facility] Comment on above: Performed By: #### 2 092276 #### [facility] [address] [place] [address] Erythrocyte distribution width (RBC) [Ratio] 13.5 % Normal 10.9-14.2 [facility] Comment on above: Performed By: #### 2 490764 #### [facility] [address] [place] [address] Hematocrit (Bld) [Volume fraction] 42.5 % Normal 34.0-46.0 [facility] Comment on above: Performed By: #### 2 439987 #### [facility] [address] [place] [address] Hemoglobin (Bld) [Mass/Vol] 14.3 g/dL Normal 12.0-16.0 [facility] Comment on above: Performed By: #### 2 599536 #### [facility] [address] [place] [address] Lymph Absolute 2.8 E9/L Normal 1.0-4.0 [facility] Comment on above: Performed By: #### 2 743441 #### [facility] [address] [place] [address] Lymphocytes/100 WBC (Bld) 27.2 % Normal 14.0-50.0 [facility] Comment on above: Performed By: #### 2 093511 #### [facility] [address] [place] [address] MCH (RBC) [Entitic mass] 32.6 pg Normal 27.0-34.0 [facility] Comment on above: Performed By: #### 2 727053 #### [facility] [address] [place] [address] MCHC (RBC) [Mass/Vol] 33.7 g/dL Normal 31.4-36.0 [place] Comment on above: Performed By: #### 2 394742 #### [facility] [address] [place] [address] MCV (RBC) [Entitic vol] 96.8 fL Normal 80.0-100.0 [facility] Comment on above: Performed By: #### 2 488553 #### [facility] [address] [place] [address] Harris Absolute 0.9 E9/L Normal 0.2-1.0 [facility] Comment on above: Performed By: #### 2 641231 #### [facility] [address] [place] [address] Monocytes/100 WBC (Bld) 8.9 % Normal 4.0-14.0 [facility] Comment on above: Performed By: #### 2 354832 #### [facility] [address] [place] [address] Neutro Absolute 6.3 E9/L Normal 2.0-7.5 [facility] Comment on above: Performed By: #### 2 263040 #### [facility] [address] [place] [address] Neutro Auto 61.4 % Normal 36.0-75.0 [facility] Comment on above: Performed By: #### 2 236323 #### [facility] [address] [place] [address] Platelet 296.0 E9/L Normal 150.0-500. 0 [facility] Comment on above: Performed By: #### 2 822683 #### [facility] [address] [place] [address] Platelet mean volume (Bld) [Entitic vol] 7.9 fL Normal 6.4-10.8 [facility] Comment on above: Performed By: #### 2 943675 #### [facility] [address] [place] [address] RBC 4.4 E12/L Normal 4.3-5.9 [facility] Comment on above: Performed By: #### 2 854329 #### [facility] [address] [place] [address] WBC 10.3 E9/L Normal 4.0-11.0 [facility] Comment on above: Performed By: #### 2 202712 #### [facility] [address] [place] [address] ED Clinical Summaryon 2024 ED Clinical Summary ED Clinical Summary [address] [address] ED Clinical Summary Person Information Name: CHIOMA ARCINIEGA/[place] Age: 54 Years : 1970 Sex: Female Language: Ghanaian PCP: NONE, XXXX Marital Status: Visit Id: [...] 10/03/2024 18:49:22 10/03/2024 18:49:22 10/03/2024 18:49:22 ADDRESS: [address] [place] [id number] [facility] DOC NOTES: MEDICAL INFORMATION: Prescriptions Given: New Medications Printed Prescriptions promethazine (promethazine 25 mg Tab) 1 Tablets By Mouth 3 times a day. Refills: 0. PATIENT EDUCATION INFORMATION: Instructions: Chronic Pancreatitis Follow up: With: Address: When: [facility]X [facility] , [place] In 3 days 10/06/2024 Comments: follow up with your GI physician DIAGNOSIS: Chronic pancreatitis Normal [facility] ED Note-Physicianon 10-04-19 25 ED Note-Physician ED [...] relief. Follows with GI out of the [place] area Review of Systems A 10 point [...] made to ensure accuracy, however, inadvertently computerized oven technician mistakes may be present. Appropriate healthcare PPE [...] (10/03/24 1 (more content not included)... Normal [facility] Comment on above: Result Comment: Elec tronically Signed By: Levar Jara PA-C\.br\Date and Time Signed: 10/03/24 18:38 EDT\.br\Electronically Co-Signed By: Darrel Ferrer DO\.br\Date and Time Co-Signed: 10/03/24 18:48 EDT ED Patient Summaryon 025 ED Patient Summary ED Patient Summary [place] [address] Patient Discharge Instructions Person Information Name: CHIOMA ARCINIEGA Age: 54 Years Arrival Date: 10/03/2024 17:23:23 Discharge Diagnosis: Chronic pancreatitis Primary Care Physician: LIANE, XXXX Provider Information Primary Provider: Darrel Ferrer DO [employer] Manager:Levar Jara PA-C The exam and treatment you received in the Emergency Department were for an urgent problem and are not intended as complete care. It is important that you follow up with a doctor, nurse practitioner, or physician???s assistant director of security for ongoing care. If your symptoms become worse or you do not improve as expected and you are unable to reach your usual health care provider, you should return to the Emergency Department. We are available 24 hours a day. DEMIANCHIOMA has been given the following list of patient education materials, prescriptions and follow-up instructions: Follow-up Instructions: With: Address: When: XXXX [place] , [place] In 3 days 10/06/2024 Comments: [...] opioids can be used to help relieve lavvynnl-dy-irifbk pain and are often prescribed following a [...] be struggling with addiction, tell your health weekend caregiver and ask for guidance or call (more content not included)... Normal [facility] Extra Blueon 10-03-2024 Tube Collected Plasma Yes Invalid Interpretation Code [facility] Comment on above: Performed By: #### 1 [id number] #### [facility] [address] [place] [address] Hep Func Panelon 10-03-2024 Albumin [Mass/Vol] 4.5 g/dL Normal 3.3-5.0 [facility] Comment on above: Performed By: #### 2 644062 #### [facility] [address] [place] [address] Albumin/Globulin [Mass ratio] 1.8 {ratio} Normal 1.1-2.2 [facility] Comment on above: Performed By: #### 2 635496 #### [facility] [address] [place] [address] Alk Phos 109 Int._Unit/L High 21-98 [facility] Comment on above: Performed By: #### 2 838441 #### [facility] [address] [place] [address] ALT 9 Int._Unit/L Normal 6-46 [facility] Comment on above: Performed By: #### 2 107804 #### [facility] [address] [place] [address] AST 16 Int._Unit/L Normal 5-43 [facility] Comment on above: Performed By: #### 2 729835 #### [facility] [address] [place] [address] Bili Direct 0.0 mg/dL Normal 0.0-0.4 [facility] Comment on above: Performed By: #### 2 550873 #### [facility] [address] [place] [address] Bili Indirect 0.3 mg/dL Normal 0.1-0.9 [facility] Comment on above: Performed By: #### 2 273476 #### [facility] [address] [place] [address] Bili Total 0.3 mg/dL Normal 0.0-1.1 [facility] Comment on above: Performed By: #### 2 862871 #### [facility] [address] [place] [address] Globulin (S) [Mass/Vol] 2.5 g/dL Normal 1.4-4.0 [facility] Comment on above: Performed By: #### 2 365426 #### [facility] [address] [place] [address] Protein [Mass/Vol] 7.0 g/dL Normal 6.0-7.8 [facility] Comment on above: Performed By: #### 2 671391 #### [facility] [address] [place] [address] Lipase Levelon 10-03-2024 Lipase Lvl 199 unit/L High 13-58 [facility] Comment on above: Performed By: #### 2 821369 #### [facility] [address] [place] [address] eGFRon 10-03-2024 eGFR 87 mL/min/1.73 m2 Normal >=59 [facility] Comment on above: Performed By: #### 1 [id number] #### [facility] [address] [place] [address] CBC with Auto Differentialon 09-27-2024 Basophils (Bld) [#/Vol] 0.08 10*3/uL [facility] Basophils/100 WBC (Bld) 1 % 0 - 2 % [facility] Eosinophils (Bld) [#/Vol] 0.08 10*3/uL [facility] Eosinophils/100 WBC (Bld) 1 % 1 - 4 % [facility] Erythrocyte distribution width (RBC) [Ratio] 13 % 11.8 - 14.4 % [facility] Hematocrit (Bld) [Volume fraction] 45.2 % 36.3 - 47.1 % [facility] Hemoglobin (Bld) [Mass/Vol] 15.5 g/dL High 11.9 - 15.1 g/dL [facility] Immature granulocytes (Bld) [#/Vol] 0 10*3/uL [facility] Immature granulocytes/100 WBC (Bld) 0 % 0 [facility] Interpretation and review of laboratory results Abnormal [facility] Lymphocytes/100 WBC (Bld) 26 % 24 - 43 % [facility] Lymphocytes/100 WBC (Bld) 2.13 % [facility] MCH (RBC) [Entitic mass] 33.2 pg 25.2 - 33.5 pg [facility] MCHC (RBC) [Mass/Vol] 34.3 g/dL 28.4 - 34.8 g/dL [facility] MCV (RBC) [Entitic vol] 96.8 fL 82.6 - 102.9 fL [facility] Monocytes/100 WBC (Bld) 9 % 3 - 12 % [facility] Monocytes/100 WBC (Bld) 0.74 % [facility] Morphology Syed (Bld) [Interp] Normal [facility] Neutrophils/100 WBC (Bld) 63 % 36 - 65 % [facility] Nucleated RBC/100 WBC (Bld) [Ratio] 0 % 0.0 per 100 WBC [facility] Platelet, Fluorescence [address] [facility] [facility] Platelets (Bld) [#/Vol] See Reflexed IPF Result [facility] Platelets reticulated/100 platelets Auto (Bld) 2.4 % 1.1 - 10.3 % [facility] RBC (Bld) [#/Vol] 4.67 10*6/uL 3.95 - 5.11 m/uL [facility] Segmented neutrophils/100 WBC (Bld) 5.17 % [facility] WBC other (Bld) [#/Vol] 8.2 [facility] CBC with Diffon 09-27-2024 Abs. Basophil 0.08 k/uL Normal 0.0-0.2 [facility] Comment on above: Performed By: #### L IP, CDP, CP #### [address] [place] [id number] Char Belt Operator: Ion Jasso MD Abs.Imm.Granulocyte 0.00 k/uL Normal 0.00-0.30 [facility] Comment on above: Performed By: #### L IP, CDP, CP #### [address] [place], [place] [address] Char Belt Operator: Ion Jasso MD Abs.Neutrophil (Seg) 5.17 k/uL Normal 1.50-8.10 [facility] Comment on above: Performed By: #### L IP, CDP, CP #### [address] [place], [place] [address] Char Belt Operator: Ion Jasso MD Basophils/100 WBC (Bld) 1 % Normal 0-2 [facility] Comment on above: Performed By: #### L IP, CDP, CP #### [facility] [address] [place] [address] Dr. [place], [place] [address] Char Belt Operator: Ion Jasso MD Eosinophils (Bld) [#/Vol] 0.08 10*3/uL Normal 0.00-0.44 [facility] Comment on above: Performed By: #### L IP, CDP, CP #### [facility] [address] [place], [facility] Char Belt Operator: Ion Jasso MD Eosinophils/100 WBC (Bld) 1 % Normal 1-4 [facility] Comment on above: Performed By: #### L IP, CDP, CP #### [facility] [address] [place], [facility] Char Belt Operator: Ion Jasso MD Immature granulocytes/100 WBC (Bld) 0 % Normal 0 [facility] Comment on above: Performed By: #### L IP, CDP, CP #### [address] [place], [place] [address] Char Belt Operator: Ion Jasso MD Lymphocytes (Bld) [#/Vol] 2.13 10*3/uL Normal 1.10-3.70 [facility] Comment on above: Performed By: #### L IP, CDP, CP #### [address] [place], [facility] Char Belt Operator: Ion Jasso MD Lymphocytes/100 WBC (Bld) 26 % Normal 24-43 [facility] Comment on above: Performed By: #### L IP, CDP, CP #### [address] [place], [facility] Char Belt Operator: Ion Jasso MD Monocytes (Bld) [#/Vol] 0.74 10*3/uL Normal 0.10-1.20 [facility] Comment on above: Performed By: #### L IP, CDP, CP #### [address] [place], [facility] Char Belt Operator: Ion Jasso MD Monocytes/100 WBC (Bld) 9 % Normal 3-12 [facility] Comment on above: Performed By: #### L IP, CDP, CP #### [address] [place] [address] Char Belt Operator: Ion Jasso MD Morphology Syed (Bld) [Interp] Normal Normal [facility] Comment on above: Performed By: #### L IP, CDP, CP #### [facility] [address] [place], [place] [id number] Char Belt Operator: Ion Jasso MD Neutrophil (Seg) 63 % Normal 36-65 [facility] Comment on above: Performed By: #### L IP, CDP, CP #### [address] [place], [place] [address] Char Belt Operator: Ion Jasso MD Platelet, Fluoresc. 159 k/uL Normal 138-453 [facility] Comment on above: Performed By: #### L IP, CDP, CP #### [address] [place], [place] [address] Char Belt Operator: Ion Jasso MD PLT, Immature Fract. 2.4 % Normal 1.1-10.3 [facility] Comment on above: Performed By: #### L IP, CDP, CP #### [address] [place], [facility] Char Belt Operator: Ion Jasso MD Erythrocyte distribution width (RBC) [Ratio] 13.0 % Normal 11.8-14.4 [facility] Comment on above: Performed By: #### L IP, CDP, CP #### [address] [place], [place] [address] Char Belt Operator: Ion Jasso MD Hematocrit (Bld) [Volume fraction] 45.2 % Normal 36.3-47.1 [facility] Comment on above: Performed By: #### L IP, CDP, CP #### [address] [place], [facility] Char Belt Operator: Ion Jasso MD Hemoglobin (Bld) [Mass/Vol] 15.5 g/dL High 11.9-15.1 [facility] Comment on above: Performed By: #### L IP, CDP, CP #### [address] [place], [facility] Char Belt Operator: Ion Jasso MD MCH (RBC) [Entitic mass] 33.2 pg Normal 25.2-33.5 [facility] Comment on above: Performed By: #### L IP CDP, CP #### [facility] [address] [place] [address] Dr. Michel [facility] Char Belt Operator: Ion Jasso MD MCHC (RBC) [Mass/Vol] 34.3 g/dL Normal 28.4-34.8 [facility] Comment on above: Performed By: #### L IP CDP, CP #### [address] [place], [place] [address] Char Belt Operator: Ion Jasso MD MCV (RBC) [Entitic vol] 96.8 fL Normal 82.6-102.9 [facility] Comment on above: Performed By: #### L WALTER ROONEY, CP #### [address] [place], [facility] Char Belt Operator: Ion Jasso MD NRBC Automated 0.0 per 100 WBC Normal 0.0 [facility] Comment on above: Performed By: #### L WALTER ROONEY, CP #### [address] [place], [facility] Char Belt Operator: Ion Jasso MD Platelet Count See Reflexed IPF Result Normal 138-453 [facility] Comment on above: Performed By: #### L IP CDP, CP #### [address] [place], [facility] Char Belt Operator: Ion Jasso MD RBC (Bld) [#/Vol] 4.67 10*6/uL Normal 3.95-5.11 [facility] Comment on above: Performed By: #### L TORIBIO CDP, CP #### [facility] [address] [place] [address] Dr. [place], [facility] Char Belt Operator: Ion Jasso MD WBC (Bld) [#/Vol] 8.2 10*3/uL Normal 3.5-11.3 [facility] Comment on above: Performed By: #### L IP, CDP, CP #### [facility] [address] [place] [address] Dr. [place], [place] [id number] Char Belt Operator: Ion Jasso MD Comp Metabolic Profon 2024 Albumin [Mass/Vol] 4.6 g/dL Normal 3.5-5.2 [facility] Comment on above: Performed By: #### L IP, CDP, CP #### [address] [place], [place] [id number] Char Belt Operator: Ion Jasso MD Albumin/Glob Ratio 1.6 Normal 1.0-2.5 [facility] Comment on above: Performed By: #### L IP, CDP, CP #### [facility] [address] [place] [address] [place] [address] Char Belt Operator: Ion Jasso MD Alkaline Phos 145 U/L High 35-104 [facility] Comment on above: Performed By: #### L IP, CDP, CP #### [address] [place], [place] [id number] Char Belt Operator: Ion Jasso MD ALT [Catalytic activity/Vol] 12 U/L Normal 10-35 [facility] Comment on above: Performed By: #### L IP, CDP, CP #### [facility] [address] [place] [address] Dr. [place], [place] [id number] Char Belt Operator: Ion Jasso MD Anion gap [Moles/Vol] 15 mmol/L Normal 9-16 [facility] Comment on above: Performed By: #### L IP, CDP, CP #### [address] [place], [place] [id number] Char Belt Operator: Ion Jasso MD AST [Catalytic activity/Vol] 24 U/L Normal 10-35 [facility] Comment on above: Performed By: #### L IP, CDP, CP #### [facility] [address] [place], [place] [id number] Char Belt Operator: Ion Jasso MD Bilirubin [Mass/Vol] 0.3 mg/dL Normal 0.00-1.20 [facility] Comment on above: Performed By: #### L IP, CDP, CP #### [facility] [address] [place], [facility] Char Belt Operator: Ion Jasso MD BUN/CRE Ratio 10 Normal 9-20 [facility] Comment on above: Performed By: #### L IP, CDP, CP #### [address] [place], [place] [id number] Char Belt Operator: Ion Jasso MD Calcium [Mass/Vol] 10.1 mg/dL Normal 8.6-10.4 [facility] Comment on above: Performed By: #### L IP, CDP, CP #### [facility] [address] [place] [address] Dr. [place], [place] [id number] Char Belt Operator: Ion Jasso MD Chloride [Moles/Vol] 103 mmol/L Normal 98-107 [facility] Comment on above: Performed By: #### L IP, CDP, CP #### [facility] [address] [place] [address] Dr. [place], [facility] Char Belt Operator: Ion Jasso MD CO2 [Moles/Vol] 21 mmol/L Normal 20-31 [facility] Comment on above: Performed By: #### L IP, CDP, CP #### [facility] [address] [place], [place] [id number] Char Belt Operator: Ion Jasso MD Creatinine [Mass/Vol] 0.8 mg/dL Normal 0.50-0.90 [facility] Comment on above: Performed By: #### L IP, CDP, CP #### [facility] [address] [place] [address] [place] [address] Char Belt Operator: Ion Jasso MD GFR/1.73 sq M.predicted among non-blacks MDRD (S/P/Bld) [Vol rate/Area] mL/min/{1.73_m2} Normal >60 [facility] Comment on above: Result Comment: These [...] affects renal tubular secretion. Performed By: #### L WALTER ROONEY, CP #### [address] [place] [address] Char Belt Operator: Ion Jasso MD Glucose [Mass/Vol] 91 mg/dL Normal 74-99 [facility] Comment on above: Performed By: #### L WALTER ROONEY, CP #### [address] [place] [address] Char Belt Operator: Ion Jasso MD Potassium [Moles/Vol] 4.2 mmol/L Normal 3.7-5.3 [facility] Comment on above: Result Comment: Spec imen hemolysis has exceeded the interference as defined by Joycelyn. Value may be falsely increased. Suggest recollection if clinically indicated. Performed By: #### L WALTER ROONEY, CP #### [facility] [address] [place] [address] [place] [address] Char Belt Operator: Ion Jasso MD Protein [Mass/Vol] 7.5 g/dL Normal 6.6-8.7 [facility] Comment on above: Performed By: #### L TORIBIO CDP, CP #### [address] [place] [address] Char Belt Operator: Ion Jasso MD Sodium [Moles/Vol] 139 mmol/L Normal 136-145 [facility] Comment on above: Performed By: #### L IP, CDP, CP #### [facility] [address] [place] [address] Char Belt Operator: Ion Jasso MD Urea nitrogen [Mass/Vol] 8 mg/dL Normal 6-20 [facility] Comment on above: Performed By: #### L IP, CDP, CP #### [facility] [address] [place] [address] Char Belt Operator: Ion Jasso MD Comprehensive Metabolic Pane [facility] 09-27-2024 Albumin [Mass/Vol] 4.6 g/dL 3.5 - 5.2 g/dL [facility] Albumin/Globulin [Mass ratio] 1.6 {ratio} 1.0 - 2.5 [facility] ALP [Catalytic activity/Vol] 145 U/L High 35 - 104 U/L [facility] ALT [Catalytic activity/Vol] 12 U/L 10 - 35 U/L [facility] Anion gap [Moles/Vol] 15 mmol/L 9 - 16 mmol/L [facility] AST [Catalytic activity/Vol] 24 U/L 10 - 35 U/L [facility] Bilirubin [Mass/Vol] 0.3 mg/dL 0.00 - 1.20 mg/dL [facility] Calcium [Mass/Vol] 10.1 mg/dL 8.6 - 10. 4 mg/dL [facility] Chloride [Moles/Vol] 103 mmol/L 98 - 10 7 mmol/L [facility] CO2 [Moles/Vol] 21 mmol/L 20 - 31 mmol/L [facility] Creatinine [Mass/Vol] 0.8 mg/dL 0.50 - 0.90 mg/dL [facility] Est, Glom Filt Rate - PINF [facility] Comment on above: These results [...] [Mass/Vol] 91 mg/dL 74 - 99 mg/dL [facility] Interpretation and review of laboratory results Abnormal [facility] Potassium [Moles/Vol] 4.2 mmol/L 3.7 - 5.3 mmol/L [facility] Comment on above: Specimen hemolysis h as exceeded the interference as defined by Joycelyn. Value may be falsely increased. Suggest recollection if clinically indicated. Protein [Mass/Vol] 7.5 g/dL 6.6 - 8.7 g/dL [facility] Sodium [Moles/Vol] 139 mmol/L 136 - 145 mmol/L [facility] Urea nitrogen [Mass/Vol] 8 mg/dL 6 - 20 mg/dL [facility] Urea nitrogen/Creatinine [Mass ratio] 10 mg/mg 9 - 20 [facility] Lactic Acidon 09-27-2024 Lactate (BldV) [Moles/Vol] 1.0 mmol/L 0.5 - 2.2 mmol/L [facility] Lactate [Moles/Vol] 1.0 mmol/L Normal 0.5-2.2 [facility] Comment on above: Performed By: #### L WALTER ROONEY, CP #### [facility] [address] [place] [address] Char Belt Operator: Ion Jasso MD Lipaseon 09-27-2024 Lipase [Catalytic activity/Vol] 48 U/L 13 - 60 U/L [facility] Lipase [Catalytic activity/Vol] 48 U/L Normal 13-60 [facility] Comment on above: Performed By: #### L WALTER ROONEY, CP #### [facility] [address] [place] [address] Char Belt Operator: Ion Jasso MD No Panel Informationon 09-27 [facility] CBC with Auto Differentialon 09-20-2024 Basophils (Bld) [#/Vol] 0.06 10*3/uL [facility] Basophils/100 WBC (Bld) 1 % 0 - 2 % [facility] Eosinophils (Bld) [#/Vol] 0.17 10*3/uL [facility] Eosinophils/100 WBC (Bld) 2 % 1 - 4 % [facility] Erythrocyte distribution width (RBC) [Ratio] 13.1 % 11.8 - 14.4 % [facility] Hematocrit (Bld) [Volume fraction] 42 % 36.3 - 47.1 % [facility] Hemoglobin (Bld) [Mass/Vol] 14.4 g/dL 11.9 - 15.1 g/dL [facility] Immature granulocytes (Bld) [#/Vol] 0.03 10*3/uL [facility] Immature granulocytes/100 WBC (Bld) 0 % 0 [facility] Lymphocytes/100 WBC (Bld) 28 % 24 - 43 % [facility] Lymphocytes/100 WBC (Bld) 2.98 % [facility] MCH (RBC) [Entitic mass] 33.3 pg 25.2 - 33.5 pg [facility] MCHC (RBC) [Mass/Vol] 34.3 g/dL 28.4 - 34.8 g/dL [facility] MCV (RBC) [Entitic vol] 97.2 fL 82.6 - 102.9 fL [facility] Monocytes/100 WBC (Bld) 9 % 3 - 12 % [facility] Monocytes/100 WBC (Bld) 0.96 % [facility] Neutrophils/100 WBC (Bld) 60 % 36 - 65 % [facility] Nucleated RBC/100 WBC (Bld) [Ratio] 0 % 0.0 per 100 WBC [facility] Platelet mean volume (Bld) [Entitic vol] 9.7 fL 8.1 - 13.5 fL [facility] Platelets (Bld) [#/Vol] 258 10*3/uL [facility] RBC (Bld) [#/Vol] 4.32 10*6/uL 3.95 - 5.11 m/uL [facility] Segmented neutrophils/100 WBC (Bld) 6.53 % [facility] WBC other (Bld) [#/Vol] 10.7 [facility] CBC with Diffon 09-20-2024 Abs. Basophil 0.06 k/uL Normal 0.00-0.20 [facility] Comment on above: Performed By: #### L IP, CP, CDP #### [facility] [address] [place] [address] Dr. [place], [place] [address] Char Belt Operator: Ion Jasso MD Abs.Imm.Granulocyte 0.03 k/uL Normal 0.00-0.30 [facility] Comment on above: Performed By: #### L IP, CP, CDP #### [address] [place] [address] Char Belt Operator: Ion Jasso MD Abs.Neutrophil (Seg) 6.53 k/uL Normal 1.50-8.10 [facility] Comment on above: Performed By: #### L IP, CP, CDP #### [address] [place] [address] Char Belt Operator: Ion Jasso MD Basophils/100 WBC (Bld) 1 % Normal 0-2 [facility] Comment on above: Performed By: #### L IP, CP, CDP #### [address] [place], [place] [address] Char Belt Operator: Ion Jasso MD Eosinophils (Bld) [#/Vol] 0.17 10*3/uL Normal 0.00-0.44 [facility] Comment on above: Performed By: #### L IP, CP, CDP #### [address] [place] [id number] Char Belt Operator: Ion Jasso MD Eosinophils/100 WBC (Bld) 2 % Normal 1-4 [facility] Comment on above: Performed By: #### L IP, CP, CDP #### [address] [place] [id number] Char Belt Operator: Ion Jasso MD Erythrocyte distribution width (RBC) [Ratio] 13.1 % Normal 11.8-14.4 [facility] Comment on above: Performed By: #### L IP, CP, CDP #### [address] [place], [place] [phone] Char Belt Operator: Ion Jasso MD Hematocrit (Bld) [Volume fraction] 42.0 % Normal 36.3-47.1 [facility] Comment on above: Performed By: #### L IP, CP, CDP #### [address] [place] [id number] Char Belt Operator: Ion Jasso MD Hemoglobin (Bld) [Mass/Vol] 14.4 g/dL Normal 11.9-15.1 [facility] Comment on above: Performed By: #### L IP, CP, CDP #### [address] [place] [phone] Char Belt Operator: Ion Jasso MD Immature granulocytes/100 WBC (Bld) 0 % Normal 0 [facility] Comment on above: Performed By: #### L IP, CP, CDP #### [address] [place] [id number] Char Belt Operator: Ion Jasso MD Lymphocytes (Bld) [#/Vol] 2.98 10*3/uL Normal 1.10-3.70 [facility] Comment on above: Performed By: #### L IP, CP, CDP #### [address] [place], [facility] Char Belt Operator: Ion Jasso MD Lymphocytes/100 WBC (Bld) 28 % Normal 24-43 [facility] Comment on above: Performed By: #### L IP, CP, CDP #### [address] [place], [facility] Char Belt Operator: Ion Jasso MD MCH (RBC) [Entitic mass] 33.3 pg Normal 25.2-33.5 [facility] Comment on above: Performed By: #### L IP, CP, CDP #### [address] [place] [address] Char Belt Operator: Ion Jasso MD MCHC (RBC) [Mass/Vol] 34.3 g/dL Normal 28.4-34.8 [facility] Comment on above: Performed By: #### L IP, CP, CDP #### [address] [place] [address] Char Belt Operator: Ion Jasso MD MCV (RBC) [Entitic vol] 97.2 fL Normal 82.6-102.9 [facility] Comment on above: Performed By: #### L IP, CP, CDP #### [address] [place], [facility] Char Belt Operator: Ion Jasso MD Monocytes (Bld) [#/Vol] 0.96 10*3/uL Normal 0.10-1.20 [facility] Comment on above: Performed By: #### L IP, CP, CDP #### [address] [place], [place] [id number] Char Belt Operator: Ion Jasso MD Monocytes/100 WBC (Bld) 9 % Normal 3-12 [facility] Comment on above: Performed By: #### L IP, CP, CDP #### [address] [place], [place] [phone] Char Belt Operator: Ion Jasso MD Neutrophil (Seg) 60 % Normal 36-65 [facility] Comment on above: Performed By: #### L IP, CP, CDP #### [facility] [address] [place] [address] Char Belt Operator: Ion Jasso MD NRBC Automated 0.0 per 100 WBC Normal 0.0 [facility] Comment on above: Performed By: #### L IP, CP, CDP #### [address] [place], [facility] Char Belt Operator: Ion Jasso MD Platelet mean volume (Bld) [Entitic vol] 9.7 fL Normal 8.1-13.5 [facility] Comment on above: Performed By: #### L IP, CP, CDP #### [address] [place], [facility] Char Belt Operator: Ion Jasso MD Platelets (Bld) [#/Vol] 258 10*3/uL Normal 138-453 [facility] Comment on above: Performed By: #### L IP, CP, CDP #### [address] [place], [facility] Char Belt Operator: Ion Jasso MD RBC (Bld) [#/Vol] 4.32 10*6/uL Normal 3.95-5.11 [facility] Comment on above: Performed By: #### L IP, CP, CDP #### [address] [place] [address] Char Belt Operator: Ion Jasso MD WBC (Bld) [#/Vol] 10.7 10*3/uL Normal 3.5-11.3 [facility] Comment on above: Performed By: #### L IP, CP, CDP #### [address] [place], [place] [phone] Char Belt Operator: Ion Jasso MD Comp Metabolic Profon 2024 Albumin [Mass/Vol] 4.4 g/dL Normal 3.5-5.2 [facility] Comment on above: Performed By: #### L IP, CP, CDP #### [address] [place] [address] Char Belt Operator: Ion Jasso MD Albumin/Glob Ratio 1.8 Normal 1.0-2.5 [facility] Comment on above: Performed By: #### L IP CP, CDP #### [facility] [address] [place], [place] [id number] Char Belt Operator: Ion Jasso MD Alkaline Phos 127 U/L High 35-104 [facility] Comment on above: Performed By: #### L IP, CP, CDP #### [facility] [address] [place], [place] [phone] Char Belt Operator: Ion Jasso MD ALT [Catalytic activity/Vol] 10 U/L Normal 10-35 [facility] Comment on above: Performed By: #### L TORIBIO CP, CDP #### [address] [place], [place] [id number] Char Belt Operator: Ion Jasso MD Anion gap [Moles/Vol] 12 mmol/L Normal 9-16 [facility] Comment on above: Performed By: #### L TORIBIO CP, CDP #### [address] [place], [place] [id number] Char Belt Operator: Ion Jasso MD AST [Catalytic activity/Vol] 19 U/L Normal 10-35 [facility] Comment on above: Performed By: #### L IP CP, CDP #### [facility] [address] [place], [place] [id number] Char Belt Operator: Ion Jasso MD Bilirubin [Mass/Vol] mg/dL Normal 0.00-1.20 [facility] Comment on above: Performed By: #### L IP, CP, CDP #### [facility] [address] [place] [address] Char Belt Operator: Ion Jasso MD BUN/CRE Ratio 9 Normal 9-20 [facility] Comment on above: Performed By: #### L IP, CP, CDP #### [facility] [address] [place] [address] Char Belt Operator: Ion Jasso MD Calcium [Mass/Vol] 9.6 mg/dL Normal 8.6-10.4 [facility] Comment on above: Performed By: #### L IP, CP, CDP #### [facility] [address] [place] [address] Dr. [place], [place] [phone] Char Belt Operator: Ion Jasso MD Chloride [Moles/Vol] 105 mmol/L Normal 98-107 [facility] Comment on above: Performed By: #### L IP, CP, CDP #### [address] [place] [address] Char Belt Operator: Ion Jasso MD CO2 [Moles/Vol] 23 mmol/L Normal 20-31 [facility] Comment on above: Performed By: #### L TORIBIO CP, CDP #### [address] [place], [place] [id number] Char Belt Operator: Ion Jasso MD Creatinine [Mass/Vol] 0.9 mg/dL Normal 0.50-0.90 [facility] Comment on above: Performed By: #### L TORIBIO CP, CDP #### [address] [place] [address] Char Belt Operator: Ion Jasso MD GFR/1.73 sq M.predicted among non-blacks MDRD (S/P/Bld) [Vol rate/Area] 77 mL/min/{1.73_m2} Normal >60 [facility] Comment on above: Result Comment: These [...] affects renal tubular secretion. Performed By: #### L IP, CP, CDP #### [facility] [address] [place], [place] [id number] Char Belt Operator: Ion Jasso MD Glucose [Mass/Vol] 97 mg/dL Normal 74-99 [facility] Comment on above: Performed By: #### L IP, CP, CDP #### [facility] [address] [place], [place] [id number] Char Belt Operator: Ion Jasso MD Potassium [Moles/Vol] 4.4 mmol/L Normal 3.7-5.3 [facility] Comment on above: Performed By: #### L IP, CP, CDP #### [facility] [address] [place], [place] [id number] Char Belt Operator: Ion Jasso MD Protein [Mass/Vol] 6.8 g/dL Normal 6.6-8.7 [facility] Comment on above: Performed By: #### L IP, CP, CDP #### [facility] [address] [place], [place] [id number] Char Belt Operator: Ion Jasso MD Sodium [Moles/Vol] 140 mmol/L Normal 136-145 [facility] Comment on above: Performed By: #### L IP, CP, CDP #### [facility] [address] [place], [place] 1977[address]83 Char Belt Operator: Ion Jasso MD Urea nitrogen [Mass/Vol] 8 mg/dL Normal 6-20 [facility] Comment on above: Performed By: #### L IP, CP, CDP #### [facility] [address] [place], [place] [id number] Char Belt Operator: Ion Jasso MD Comprehensive Metabolic Pane [facility] 09-20-2024 Albumin [Mass/Vol] 4.4 g/dL 3.5 - 5.2 g/dL [facility] Albumin/Globulin [Mass ratio] 1.8 {ratio} 1.0 - 2.5 [facility] ALP [Catalytic activity/Vol] 127 U/L High 35 - 104 U/L [facility] ALT [Catalytic activity/Vol] 10 U/L 10 - 35 U/L [facility] Anion gap [Moles/Vol] 12 mmol/L 9 - 16 mmol/L [facility] AST [Catalytic activity/Vol] 19 U/L 10 - 35 U/L [facility] Bilirubin [Mass/Vol] mg/dL 0.00 - 1.20 mg/dL [facility] Calcium [Mass/Vol] 9.6 mg/dL 8.6 - 10. 4 mg/dL [facility] Chloride [Moles/Vol] 105 mmol/L 98 - 10 7 mmol/L [facility] CO2 [Moles/Vol] 23 mmol/L 20 - 31 mmol/L [facility] Creatinine [Mass/Vol] 0.9 mg/dL 0.50 - 0.90 mg/dL [facility] Est, Glom Filt Rate 77 - PINF [facility] Comment on above: These results [...] [Mass/Vol] 97 mg/dL 74 - 99 mg/dL [facility] Potassium [Moles/Vol] 4.4 mmol/L 3.7 - 5.3 mmol/L [facility] Protein [Mass/Vol] 6.8 g/dL 6.6 - 8.7 g/dL [facility] Sodium [Moles/Vol] 140 mmol/L 136 - 145 mmol/L [facility] Urea nitrogen [Mass/Vol] 8 mg/dL 6 - 20 mg/dL [facility] Urea nitrogen/Creatinine [Mass ratio] 9 mg/mg 9 - 20 [facility] Lactic Acidon 09-20-2024 Lactate (BldV) [Moles/Vol] 1.2 mmol/L 0.5 - 2.2 mmol/L [facility] Lactate [Moles/Vol] 1.2 mmol/L Normal 0.5-2.2 [facility] Comment on above: Performed By: #### L WALTER ROONEY, CP #### [facility] [address] [place], [place] [id number] Char Belt Operator: Ion Jasso MD Lipaseon 09-20-2024 Lipase [Catalytic activity/Vol] 89 U/L High 13 - 60 U/L [facility] Lipase [Catalytic activity/Vol] 89 U/L High 13-60 [facility] Comment on above: Performed By: #### L HARITHA ROONEY, CDP #### [facility] [address] [place] [address] Char Belt Operator: Ion Jasso MD No Panel Informationon 09-20 Interpretation and review of laboratory results Abnormal [facility] Urinalysis w/ Microon 2024 Bacteria 2+ Abnormal NONE [facility] Comment on above: Performed By: #### U AMIC #### [facility] [address] [place], [place] [id number] Char Belt Operator: Ion Jasso MD Bilirubin, SemiQt,Ur Negative Normal NEG [facility] Comment on above: Performed By: #### U AMIC #### [facility] [address] [place], [place] [id number] Char Belt Operator: Ion Jasso MD Blood, Urine Negative Normal NEG [facility] Comment on above: Performed By: #### U AMIC #### [facility] [address] [place] [address] Char Belt Operator: Ion Jasso MD Clarity (U) Clear Normal CLEAR [facility] Comment on above: Performed By: #### U AMIC #### [facility] [address] [place] [address] Char Belt Operator: Ion Jasso MD Color (U) Yellow Normal YEL [facility] Comment on above: Performed By: #### U AMIC #### [facility] [address] [place] [address] Dr. [place], [place] [id number] Char Belt Operator: Ion Jasso MD Epithelial cells LM Ql (Urine sed) 2 TO 5 Normal 0-25 [facility] Comment on above: Performed By: #### U AMIC #### [facility] [address] [place], [place] [phone] Char Belt Operator: Ion Jasso MD Glucose Ql (U) Negative Normal NEG [facility] Comment on above: Performed By: #### U AMIC #### [facility] [address] [place] [address] Dr. [place], [place] [phone] Char Belt Operator: Ion Jasso MD Ketones Ql (U) Negative Normal NEG [facility] Comment on above: Performed By: #### U AMIC #### [facility] [address] [place] [address] Dr. [place], [place] [phone] Char Belt Operator: Ion Jasso MD Leukocyte esterase Test strip Ql (U) Negative Normal NEG [facility] Comment on above: Performed By: #### U AMIC #### [address] [place], [place] 4542583 Char Belt Operator: Ion Jasso MD Nitrite,Ur Negative Normal NEG [facility] Comment on above: Performed By: #### U AMIC #### [facility] [address] [place] [address] Dr. [place], [place] [phone] Char Belt Operator: Ion Jasso MD PH,Ur 6.0 Normal 5.0-9.0 [facility] Comment on above: Performed By: #### U AMIC #### [facility] [address] [place], [place] 2804783 Char Belt Operator: Ion Jasso MD Protein Ql (U) Negative Normal NEG [facility] Comment on above: Performed By: #### U AMIC #### [facility] [address] [place], [place] 1425483 Char Belt Operator: Ion Jasso MD Spec. [place],Ur >1.030 High 1.010-1.02 0 [facility] Comment on above: Performed By: #### U AMIC #### [facility] [address] [place] [address] Char Belt Operator: Ion Jasso MD Urine RBC's None Normal 0-2 [facility] Comment on above: Performed By: #### U AMIC #### [facility] [address] [place], [place] [phone] Char Belt Operator: Ion Jasso MD Urine WBC's None Normal 0-5 [facility] Comment on above: Performed By: #### U AMIC #### [facility] [address] [place], [place] [id number] Char Belt Operator: oIn Jasso MD Urobilinogen,Ur Normal Normal 0.0-1.0 [facility] Comment on above: Performed By: #### U AMIC #### [facility] [address] [place] [address] Dr. [place] [id number] Char Belt Operator: Ion Jasso MD Urinalysis with Microscopico n 09-20-2024 Bacteria LM Ql (Urine sed) 2+ Abnormal None [facility] Bilirubin Ql (U) Negative NEGATIVE [facility] Clarity (U) Clear Clear [facility] Color (U) Yellow Yellow [facility] Epithelial cells LM.HPF (Urine sed) [#/Area] 2 TO [address] [facility] Glucose Test strip (U) [Mass/Vol] Negative NEGATIVE mg/dL [facility] Hemoglobin Auto test strip Ql (U) Negative NEGATIVE [facility] Interpretation and review of laboratory results Abnormal [facility] Ketones (U) [Mass/Vol] Negative NEGAT MATTHIAS mg/dL [facility] Leukocyte esterase Test strip Ql (U) Negative NEGATIVE [facility] Nitrite Ql (U) Negative NEGATIVE [facility] pH (U) 6 [pH] 5.0 - 9.0 [facility] Protein (U) [Mass/Vol] Negative NEGAT MATTHIAS mg/dL [facility] RBC LM.HPF (Urine sed) [#/Area] None [facility] Specific gravity (U) [Rel density] High 1.010 - 1.020 [facility] Urobilinogen Qn (U) Normal 0.0 - 1. 0 EU/dL [facility] WBC LM.HPF (Urine sed) [#/Area] None [facility] CT ABDOMEN AND PELVIS W [...] Dasilva MD on 09/19/2024 1:15 AM Normal [facility] POCT NURSING URINE MACROSCOP IC UAon 09-19-2024 BILIRUBIN JERE Negative Normal Negative [facility] Comment on above: Performed By: #### 8 9579-7, 39447-6, 5643-2, 05238-1, LIVR, 3040-3, CBCA, BMP #### [facility] ([id number]) [address] [place] [address], [place] [address] BLOOD/HGB JERE Negative Normal Negative [facility] Comment on above: Performed By: #### 8 9579-7, 03377-9, 5643-2, 68358-1, LIVR, 3040-3, CBCA, BMP #### [facility] ([id number]) [address] [place] [address]86[address] GLUCOSE JERE Negative Normal Negative [facility] Comment on above: Performed By: #### 8 9579-7, 07812-8, 5643-2, 25374-2, LIVR, 3040-3, CBCA, BMP #### [facility] ([id number]) [address] [place] [address] 27831 KETONES JERE Negative Normal Negative [facility] Comment on above: Performed By: #### 8 9579-7, 23575-8, 5643-2, 32827-3, LIVR, 3040-3, CBCA, BMP #### [facility] ([id number]) [address] [place] [address] [place] [address] LEUKOCYTE ESTERASE JERE Negative Normal Negative [facility] Comment on above: Performed By: #### 8 9579-7, 11216-0, 5643-2, 12984-4, LIVR, 3040-3, CBCA, BMP #### [facility] ([id number]) [address] [place] [address] [place] [address] NITRITE JERE Negative Normal Negative [facility] Comment on above: Performed By: #### 8 9579-7, 62088-6, 5643-2, 26127-8, LIVR, 3040-3, CBCA, BMP #### [facility] ([id number]) [address] [place] [address] 96657 PH JERE 5.5 Normal 5.0, 6.0, 6.5, 7.0, 7.5, 8.0, 8.5, 5.5 [facility] Comment on above: Performed By: #### 8 9579-7, 52207-2, 5643-2, 56805-1, LIVR, 3040-3, CBCA, BMP #### [facility] ([id number]) [address] [place] [address] 30806 PROTEIN JERE Negative Normal Negative [facility] Comment on above: Performed By: #### 8 9579-7, 62847-4, 5643-2, 54431-2, LIVR, 3040-3, CBCA, BMP #### [facility] ([id number]) [address] [place] [address] 77825 SPECIFIC GRAVITY JERE 1.025 Normal 1.010, 1.015, 1.020, 1.025 [facility] Comment on above: Performed By: #### 8 9579-7, 43486-1, 5643-2, 59305-0, LIVR, 3040-3, CBCA, BMP #### [facility] ([id number]) [address] [place] [address] 18915 UROBILINOGEN JERE 0.2 E.U./dL Normal [facility] Comment on above: Performed By: #### 8 9579-7, 34175-7, 5643-2, 66461-3, LIVR, 3040-3, CBCA, BMP #### [facility] ([id number]) [address] [place] [address] 18324 APTTon 09-18-2024 aPTT Coag (Bld) [Time] 26 s Normal 26-37 Pr [facility] Comment on above: Performed By: #### 8 9579-7, 60850-5, 5643-2, 89739-9, LIVR, 3040-3, CBCA, BMP #### [facility] ([id number]) [address] [place] [address] 20368 BASIC METABOLIC PANELon 07- Anion gap [Moles/Vol] 6 mmol/L Normal 5-15 [facility] Comment on above: Performed By: #### 8 9579-7, 46109-4, 5643-2, 08707-3, LIVR, 3040-3, CBCA, BMP #### [facility] ([id number]) [address] [place] [address] 76834 Calcium [Mass/Vol] 9.8 mg/dL Normal 8.5-10.5 [facility] Comment on above: Performed By: #### 8 9579-7, 68054-8, 5643-2, 19882-6, LIVR, 3040-3, CBCA, BMP #### [facility] ([id number]) [address] [place] [address] 45821 Chloride [Moles/Vol] 106 mmol/L Normal 98-109 [facility] Comment on above: Performed By: #### 8 9579-7, 62268-4, 5643-2, 82976-3, LIVR, 3040-3, CBCA, BMP #### [facility] ([id number]) [address] [place] [address] 67745 CO2 [Moles/Vol] 27 mmol/L Normal 22-32 [facility] Comment on above: Performed By: #### 8 9579-7, 74551-6, 5643-2, 48222-3, LIVR, 3040-3, CBCA, BMP #### [facility] ([id number]) [address] [place] [address] 96048 Creatinine [Mass/Vol] 0.91 mg/dL Normal 0.40-1.00 [facility] Comment on above: Result Comment: METH OD TRACEABLE TO IDMS STANDARD Performed By: #### 8 9579-7, 94889-9, 5643-2, 61739-8, LIVR, 3040-3, CBCA, BMP #### [facility] ([id number]) [address] [place] [address] 05309 GFR/1.73 sq M.predicted among non-blacks MDRD (S/P/Bld) [Vol rate/Area] 75 mL/min/{1.73_m2} Normal >=60 [facility] Comment on above: Result Comment: eGFR not reported due to non-numeric value for Creatinine. Reported eGFR is based on the CKD-EPI 2020 equation that does not use a race coefficient. Performed By: #### 8 9579-7, 30512-0, 5643-2, 56130-3, LIVR, 3040-3, CBCA, BMP #### [facility] ([id number]) [address] [place] [address] 62294 Glucose [Mass/Vol] 76 mg/dL Normal 65-99 [facility] Comment on above: Performed By: #### 8 9579-7, 72353-8, 5643-2, 22475-5, LIVR, 3040-3, CBCA, BMP #### [facility] ([id number]) [address] [place] [address] 69791 Potassium [Moles/Vol] 3.5 mmol/L Normal 3.5-5.0 [facility] Comment on above: Performed By: #### 8 9579-7, 93556-4, 5643-2, 22102-1, LIVR, 3040-3, CBCA, BMP #### [facility] ([id number]) [address] [place] [address] 38702 Sodium [Moles/Vol] 139 mmol/L Normal 134-146 [facility] Comment on above: Performed By: #### 8 9579-7, 75279-2, 5643-2, 70366-8, LIVR, 3040-3, CBCA, BMP #### [facility] ([id number]) [address] [place] [address] 14250 Urea nitrogen [Mass/Vol] 10 mg/dL Normal 5-23 [facility] Comment on above: Performed By: #### 8 9579-7, 72859-0, 5643-2, 14404-5, LIVR, 3040-3, CBCA, BMP #### [facility] ([id number]) [address] [place] [address] 60881 CBC WITH AUTO DIFFERENTIALon 09-18-2024 BASOPHILS ABSOLUTE COUNT (10*3/UL) BY AUTOMATED COUNT 0.1 10*3/uL Normal 0.0-0.2 [facility] Comment on above: Performed By: #### 8 9579-7, 41162-7, 5643-2, 52609-3, LIVR, 3040-3, CBCA, BMP #### [facility] ([id number]) [address] [place] [address] 41577 BASOPHILS RELATIVE PERCENT BY AUTOMATED COUNT 0.7 % Normal [facility] Comment on above: Performed By: #### 8 9579-7, 39631-0, 5643-2, 49193-9, LIVR, 3040-3, CBCA, BMP #### [facility] ([id number]) [address] [place] [address] 64440 CELLAVISION DIFFERENTIAL TYPE AUTOMATED DIFFERENTIAL Normal [facility] Comment on above: Performed By: #### 8 9579-7, 98934-1, 5643-2, 07904-5, LIVR, 3040-3, CBCA, BMP #### [facility] ([id number]) [address] [place] [address] 61302 Eosinophils (Bld) [#/Vol] 0.2 10*3/uL Normal 0.0-0.4 [facility] Comment on above: Performed By: #### 8 9579-7, 90031-6, 5643-2, 94336-0, LIVR, 3040-3, CBCA, BMP #### [facility] ([id number]) [address] [place] [address] 08455 EOSINOPHILS RELATIVE PERCENT BY AUTOMATED COUNT 1.5 % Normal [facility] Comment on above: Performed By: #### 8 9579-7, 40926-3, 5643-2, 06685-4, LIVR, 3040-3, CBCA, BMP #### [facility] ([id number]) [address] [place] [address] 03271 Erythrocyte distribution width (RBC) [Ratio] 13.7 % Normal 11.5-15 [facility] Comment on above: Performed By: #### 8 9579-7, 15504-6, 5643-2, 19969-7, LIVR, 3040-3, CBCA, BMP #### [facility] ([id number]) [address] [place] [address] 85185 Hematocrit (Bld) [Volume fraction] 42.3 % Normal 35-47 [facility] Comment on above: Performed By: #### 8 9579-7, 69807-1, 5643-2, 26434-8, LIVR, 3040-3, CBCA, BMP #### [facility] ([id number]) [address] [place] [address] 07616 Hemoglobin (Bld) [Mass/Vol] 14.8 g/dL Normal 11.7-15.5 [facility] Comment on above: Performed By: #### 8 9579-7, 56031-0, 5643-2, 86873-8, LIVR, 3040-3, CBCA, BMP #### [facility] ([id number]) [address] [place] [address] 98138 LYMPHOCYTES ABSOLUTE COUNT (10*3/UL) BY AUTOMATED COUNT 2.8 10*3/uL Normal 1.0-3.5 [facility] Comment on above: Performed By: #### 8 9579-7, 72494-3, 5643-2, 76841-8, LIVR, 3040-3, CBCA, BMP #### [facility] ([id number]) [address] [place] [address] 95108 LYMPHOCYTES RELATIVE PERCENT BY AUTOMATED COUNT 26.7 % Normal [facility] Comment on above: Performed By: #### 8 9579-7, 44210-9, 5643-2, 26050-0, LIVR, 3040-3, CBCA, BMP #### [facility] ([id number]) [address] [place] [address] 52864 MCH (RBC) [Entitic mass] 33.4 pg Normal 27-34 [facility] Comment on above: Performed By: #### 8 9579-7, 49993-5, 5643-2, 09246-8, LIVR, 3040-3, CBCA, BMP #### [facility] ([id number]) [address] [place] [address] 43735 MCHC (RBC) [Mass/Vol] 34.9 g/dL Normal 32-36 [facility] Comment on above: Performed By: #### 8 9579-7, 39496-7, 5643-2, 41799-9, LIVR, 3040-3, CBCA, BMP #### [facility] ([id number]) [address] [place] [address] 44634 MCV (RBC) [Entitic vol] 96 fL Normal 80-100 [facility] Comment on above: Performed By: #### 8 9579-7, 55906-8, 5643-2, 23937-5, LIVR, 3040-3, CBCA, BMP #### [facility] ([id number]) [address] [place] [address] 93293 MONOCYTES ABSOLUTE COUNT (10*3/UL) BY AUTOMATED COUNT 0.9 10*3/uL Normal 0.0-0.9 [facility] Comment on above: Performed By: #### 8 9579-7, 04089-4, 5643-2, 39904-7, LIVR, 3040-3, CBCA, BMP #### [facility] ([id number]) [address] [place] [address] 42831 MONOCYTES RELATIVE PERCENT BY AUTOMATED COUNT 8.8 % Normal [facility] Comment on above: Performed By: #### 8 9579-7, 28793-9, 5643-2, 79787-4, LIVR, 3040-3, CBCA, BMP #### [facility] ([id number]) [address] [place] [address] 69683 NEUTROPHILS ABSOLUTE COUNT BY AUTOMATED COUNT 6.6 10*3/uL Normal 1.5-6.6 [facility] Comment on above: Performed By: #### 8 9579-7, 89259-0, 5643-2, 98603-0, LIVR, 3040-3, CBCA, BMP #### [facility] ([id number]) [address] [place] [address] 43542 NEUTROPHILS RELATIVE PERCENT BY AUTOMATED COUNT 62.3 % Normal [facility] Comment on above: Performed By: #### 8 9579-7, 85292-9, 5643-2, 50180-2, LIVR, 3040-3, CBCA, BMP #### [facility] ([id number]) [address] [place] [address] 53641 Platelet mean volume (Bld) [Entitic vol] 8.3 fL Normal 7-12 [facility] Comment on above: Performed By: #### 8 9579-7, 82443-0, 5643-2, 52945-3, LIVR, 3040-3, CBCA, BMP #### [facility] ([id number]) [address] [place] [address] 79497 Platelets (Bld) [#/Vol] 283 10*3/uL Normal 150-450 [facility] Comment on above: Performed By: #### 8 9579-7, 15951-1, 5643-2, 35967-2, LIVR, 3040-3, CBCA, BMP #### [facility] ([id number]) [address] [place] [address] 93741 RBC COUNT 4.43 X10E12/L Normal 3.8-5.2 [facility] Comment on above: Performed By: #### 8 9579-7, 64107-5, 5643-2, 92633-7, LIVR, 3040-3, CBCA, BMP #### [facility] ([id number]) [address] [place] [address] 99763 WBC (Bld) [#/Vol] 10.5 10*3/uL Normal 4-11 [facility] Comment on above: Performed By: #### 8 9579-7, 57551-2, 5643-2, 76774-6, LIVR, 3040-3, CBCA, BMP #### [facility] ([id number]) [address] [place] [address] 80552 ETHANOLon 09-18-2024 Ethanol [Mass/Vol] mg/dL Normal <=0.080 [facility] Comment on above: Result Comment: This report is intended for use in clinical monitoring or management of patients. Performed By: #### 8 9579-7, 49189-6, 5643-2, 10900-8, LIVR, 3040-3, CBCA, BMP #### [facility] ([id number]) [address] [place] [address] 63569 LIPASEon 09-18-2024 Lipase [Catalytic activity/Vol] 187 U/L High 17-40 [facility] Comment on above: Performed By: #### 8 9579-7, 36271-8, 5643-2, 67609-5, LIVR, 3040-3, CBCA, BMP #### [facility] ([id number]) [address] [place] [address] 29394 LIVER PANELon 09-18-2024 Albumin [Mass/Vol] 4.3 g/dL Normal 3.2-5.3 [facility] Comment on above: Performed By: #### 8 9579-7, 76396-6, 5643-2, 64114-2, LIVR, 3040-3, CBCA, BMP #### [facility] ([id number]) [address] [place] [address] 70501 ALP [Catalytic activity/Vol] 127 U/L Normal 39-130 [facility] Comment on above: Performed By: #### 8 9579-7, 64921-6, 5643-2, 36655-9, LIVR, 3040-3, CBCA, BMP #### [facility] ([id number]) [address] [place] [address] 61533 ALT [Catalytic activity/Vol] 13 U/L Normal <=31 [facility] Comment on above: Performed By: #### 8 9579-7, 20315-3, 5643-2, 75311-4, LIVR, 3040-3, CBCA, BMP #### [facility] ([id number]) [address] [place] [address] 33348 AST [Catalytic activity/Vol] 20 U/L Normal <=41 [facility] Comment on above: Performed By: #### 8 9579-7, 62740-9, 5643-2, 74327-4, LIVR, 3040-3, CBCA, BMP #### [facility] ([id number]) [address] [place] [address] 26366 Bilirubin [Mass/Vol] 0.3 mg/dL Normal 0.3-1.2 [facility] Comment on above: Performed By: #### 8 9579-7, 96148-8, 5643-2, 94427-9, LIVR, 3040-3, CBCA, BMP #### [facility] ([id number]) [address] [place] [id number] Bilirubin.indirect [Mass/Vol] mg/dL Normal <=0.4 [facility] Comment on above: Performed By: #### 8 9579-7, 74172-2, 5643-2, 55498-2, LIVR, 3040-3, CBCA, BMP #### [facility] ([id number]) [address] [place] [address] [place] [address] Protein [Mass/Vol] 7.4 g/dL Normal 6.0-8.0 [facility] Comment on above: Performed By: #### 8 9579-7, 49163-2, 5643-2, 93796-8, LIVR, 3040-3, CBCA, BMP #### [facility] ([id number]) [address] [place] [address] [place] [address] MAGNESIUMon 09-18-2024 Magnesium [Mass/Vol] 2.4 mg/dL Normal 1.8-2.6 [facility] Comment on above: Performed By: #### 8 9579-7, 47429-0, 5643-2, 83155-9, LIVR, 3040-3, CBCA, BMP #### [facility] ([id number]) [address] [place] [address] [place] [address] PROTIME AND INRon 09-18-2024 INR 1.0 Normal 0.9-1.2 [facility] Comment on above: Performed By: #### 8 9579-7, 71963-8, 5643-2, 16830-3, LIVR, 3040-3, CBCA, BMP #### [facility] ([id number]) [address] [place] [id number] PT Coag (PPP) [Time] 10.9 s Normal 9.8-13.2 [facility] Comment on above: Performed By: #### 8 9579-7, 94850-4, 5643-2, 07607-1, LIVR, 3040-3, CBCA, BMP #### [facility] ([id number]) [address] [place] [address] TROP I, HIGH SENSITIVITY 1 H OURon 09-18-2024 TROPONIN I, HIGH SENSITIVITY 2 ng/L Normal <16 [facility] Comment on above: Performed By: #### 8 9579-7, 78271-1, 5643-2, 96055-1, LIVR, 3040-3, CBCA, BMP #### [facility] ([id number]) [address] [place] [address] 98997 TROPONIN I, HIGH SENSITIVITY 0 HOURon 09-18-2024 TROPONIN I, HIGH SENSITIVITY 3 ng/L Normal <16 [facility] Comment on above: Performed By: #### 8 9579-7, 80244-9, 5643-2, 47024-0, LIVR, 3040-3, CBCA, BMP #### [facility] ([id number]) [address] [place] [address] 57812 CBC WITH AUTO DIFFERENTIALon 09-05-2024 BASOPHILS ABSOLUTE COUNT (10*3/UL) BY AUTOMATED COUNT 0.1 10*3/uL Normal 0.0-0.2 [facility] Comment on above: Performed By: #### 8 9579-7, 88880-8, 5643-2, 82562-1, LIVR, 3040-3, CBCA, BMP #### [facility] ([id number]) [address] [place] [address] 63672 BASOPHILS RELATIVE PERCENT BY AUTOMATED COUNT 1.1 % Normal [facility] Comment on above: Performed By: #### 8 9579-7, 96132-2, 5643-2, 25742-7, LIVR, 3040-3, CBCA, BMP #### [facility] ([id number]) [address] [place] [address] 43135 CELLAVISION DIFFERENTIAL TYPE AUTOMATED DIFFERENTIAL Normal [facility] Comment on above: Performed By: #### 8 9579-7, 10741-3, 5643-2, 15181-7, LIVR, 3040-3, CBCA, BMP #### [facility] ([id number]) [address] [place] [address] 42120 Eosinophils (Bld) [#/Vol] 0.2 10*3/uL Normal 0.0-0.4 [facility] Comment on above: Performed By: #### 8 9579-7, 27634-2, 5643-2, 03030-4, LIVR, 3040-3, CBCA, BMP #### [facility] ([id number]) [address] [place] [address] 50401 EOSINOPHILS RELATIVE PERCENT BY AUTOMATED COUNT 2.1 % Normal [facility] Comment on above: Performed By: #### 8 9579-7, 73381-6, 5643-2, 29860-2, LIVR, 3040-3, CBCA, BMP #### [facility] ([id number]) [address] [place] [address] 95188 Erythrocyte distribution width (RBC) [Ratio] 13.2 % Normal 11.5-15 [facility] Comment on above: Performed By: #### 8 9579-7, 04481-6, 5643-2, 90427-1, LIVR, 3040-3, CBCA, BMP #### [facility] ([id number]) [address] [place] [address] 42015 Hematocrit (Bld) [Volume fraction] 43.1 % Normal 35-47 [facility] Comment on above: Performed By: #### 8 9579-7, 38104-1, 5643-2, 49699-6, LIVR, 3040-3, CBCA, BMP #### [facility] ([id number]) [address] [place] [address] 78825 Hemoglobin (Bld) [Mass/Vol] 15.0 g/dL Normal 11.7-15.5 [facility] Comment on above: Performed By: #### 8 9579-7, 36446-9, 5643-2, 86353-2, LIVR, 3040-3, CBCA, BMP #### [facility] ([id number]) [address] [place] [address] 31036 LYMPHOCYTES ABSOLUTE COUNT (10*3/UL) BY AUTOMATED COUNT 3.4 10*3/uL Normal 1.0-3.5 [facility] Comment on above: Performed By: #### 8 9579-7, 83450-3, 5643-2, 88802-5, LIVR, 3040-3, CBCA, BMP #### [facility] ([id number]) [address] [place] [address] 79309 LYMPHOCYTES RELATIVE PERCENT BY AUTOMATED COUNT 35.0 % Normal [facility] Comment on above: Performed By: #### 8 9579-7, 13004-0, 5643-2, 72015-0, LIVR, 3040-3, CBCA, BMP #### [facility] ([id number]) [address] [place] [address] 39042 MCH (RBC) [Entitic mass] 33.8 pg Normal 27-34 [facility] Comment on above: Performed By: #### 8 9579-7, 36873-8, 5643-2, 41783-7, LIVR, 3040-3, CBCA, BMP #### [facility] ([id number]) [address] [place] [address] 33172 MCHC (RBC) [Mass/Vol] 34.8 g/dL Normal 32-36 [facility] Comment on above: Performed By: #### 8 9579-7, 33194-8, 5643-2, 24289-9, LIVR, 3040-3, CBCA, BMP #### [facility] ([id number]) [address] [place] [address] 70200 MCV (RBC) [Entitic vol] 97 fL Normal 80-100 [facility] Comment on above: Performed By: #### 8 9579-7, 85207-0, 5643-2, 76813-9, LIVR, 3040-3, CBCA, BMP #### [facility] ([id number]) [address] [place] [address] 56009 MONOCYTES ABSOLUTE COUNT (10*3/UL) BY AUTOMATED COUNT 0.8 10*3/uL Normal 0.0-0.9 [facility] Comment on above: Performed By: #### 8 9579-7, 60989-5, 5643-2, 13970-4, LIVR, 3040-3, CBCA, BMP #### [facility] ([id number]) [address] [place] [address] 03092 MONOCYTES RELATIVE PERCENT BY AUTOMATED COUNT 8.5 % Normal [facility] Comment on above: Performed By: #### 8 9579-7, 60931-8, 5643-2, 11654-8, LIVR, 3040-3, CBCA, BMP #### [facility] ([id number]) [address] [place] [address] 86256 NEUTROPHILS ABSOLUTE COUNT BY AUTOMATED COUNT 5.2 10*3/uL Normal 1.5-6.6 [facility] Comment on above: Performed By: #### 8 9579-7, 92433-8, 5643-2, 58409-8, LIVR, 3040-3, CBCA, BMP #### [facility] ([id number]) [address] [place] [address] 44703 NEUTROPHILS RELATIVE PERCENT BY AUTOMATED COUNT 53.3 % Normal [facility] Comment on above: Performed By: #### 8 9579-7, 98819-6, 5643-2, 77696-2, LIVR, 3040-3, CBCA, BMP #### [facility] ([id number]) [address] [place] [address] 96746 Platelet mean volume (Bld) [Entitic vol] 8.0 fL Normal 7-12 [facility] Comment on above: Performed By: #### 8 9579-7, 63533-6, 5643-2, 03840-6, LIVR, 3040-3, CBCA, BMP #### [facility] ([id number]) [address] [place] [address] 35763 Platelets (Bld) [#/Vol] 275 10*3/uL Normal 150-450 [facility] Comment on above: Performed By: #### 8 9579-7, 67558-3, 5643-2, 16335-9, LIVR, 3040-3, CBCA, BMP #### [facility] ([id number]) [address] [place] [address] 83589 RBC COUNT 4.44 X10E12/L Normal 3.8-5.2 [facility] Comment on above: Performed By: #### 8 9579-7, 58242-8, 5643-2, 78042-8, LIVR, 3040-3, CBCA, BMP #### [facility] ([id number]) [address] [place] [address] 41699 WBC (Bld) [#/Vol] 9.7 10*3/uL Normal 4-11 [facility] Comment on above: Performed By: #### 8 9579-7, 15504-9, 5643-2, 20510-9, LIVR, 3040-3, CBCA, BMP #### [facility] ([id number]) [address] [place] [address] 75837 [address]IVE METABOLIC PANE [facility] 09-05-2024 Albumin [Mass/Vol] 4.2 g/dL Normal 3.2-5.3 [facility] Comment on above: Performed By: #### 8 9579-7, 83938-6, 5643-2, 11156-3, LIVR, 3040-3, CBCA, BMP #### [facility] ([id number]) [address] [place] [address] 43744 ALP [Catalytic activity/Vol] 129 U/L Normal 39-130 [facility] Comment on above: Performed By: #### 8 9579-7, 76637-8, 5643-2, 54587-4, LIVR, 3040-3, CBCA, BMP #### [facility] ([id number]) [address] [place] [address] 80724 ALT [Catalytic activity/Vol] 13 U/L Normal <=31 [facility] Comment on above: Performed By: #### 8 9579-7, 98120-8, 5643-2, 51084-4, LIVR, 3040-3, CBCA, BMP #### [facility] ([id number]) [address] [place] [address] 77727 Anion gap [Moles/Vol] 7 mmol/L Normal 5-15 [facility] Comment on above: Performed By: #### 8 9579-7, 49935-9, 5643-2, 40665-0, LIVR, 3040-3, CBCA, BMP #### [facility] ([id number]) [address] [place] [address] 42786 AST [Catalytic activity/Vol] 22 U/L Normal <=41 [facility] Comment on above: Performed By: #### 8 9579-7, 57093-3, 5643-2, 46780-9, LIVR, 3040-3, CBCA, BMP #### [facility] ([id number]) [address] [place] [address] 75337 Bilirubin [Mass/Vol] 0.3 mg/dL Normal 0.3-1.2 [facility] Comment on above: Performed By: #### 8 9579-7, 40251-5, 5643-2, 63421-6, LIVR, 3040-3, CBCA, BMP #### [facility] ([id number]) [address] [place] [address] 83517 Calcium [Mass/Vol] 10.2 mg/dL Normal 8.5-10.5 [facility] Comment on above: Performed By: #### 8 9579-7, 98005-5, 5643-2, 27127-5, LIVR, 3040-3, CBCA, BMP #### [facility] ([id number]) [address] [place] [address] 35606 Chloride [Moles/Vol] 106 mmol/L Normal 98-109 [facility] Comment on above: Performed By: #### 8 9579-7, 09306-8, 5643-2, 94234-4, LIVR, 3040-3, CBCA, BMP #### [facility] ([id number]) [address] [place] [address] 98382 CO2 [Moles/Vol] 26 mmol/L Normal 22-32 [facility] Comment on above: Performed By: #### 8 9579-7, 55598-7, 5643-2, 44700-7, LIVR, 3040-3, CBCA, BMP #### [facility] ([id number]) [address] [place] [address] 91735 Creatinine [Mass/Vol] 0.74 mg/dL Normal 0.40-1.00 [facility] Comment on above: Result Comment: METH OD TRACEABLE TO IDMS STANDARD Performed By: #### 8 9579-7, 68603-5, 5643-2, 28841-1, LIVR, 3040-3, CBCA, BMP #### [facility] ([id number]) [address] [place] [address] 20743 EGFR (CKD-EPI) NON-RACE DEPENDENT >^90 Normal >=60 [facility] Comment on above: Result Comment: eGFR not reported due to non-numeric value for Creatinine. Reported eGFR is based on the CKD-EPI 2020 equation that does not use a race coefficient. Performed By: #### 8 9579-7, 45062-4, 5643-2, 38019-7, LIVR, 3040-3, CBCA, BMP #### [facility] ([id number]) [address] [place] [address] 69049 Glucose [Mass/Vol] 120 mg/dL High 65-99 [facility] Comment on above: Performed By: #### 8 9579-7, 32900-3, 5643-2, 99545-5, LIVR, 3040-3, CBCA, BMP #### [facility] ([id number]) [address] [place] [address] 34222 Potassium [Moles/Vol] 3.6 mmol/L Normal 3.5-5.0 [facility] Comment on above: Performed By: #### 8 9579-7, 75867-8, 5643-2, 41568-6, LIVR, 3040-3, CBCA, BMP #### [facility] ([id number]) [address] [place] [address] 87757 Protein [Mass/Vol] 7.5 g/dL Normal 6.0-8.0 [facility] Comment on above: Performed By: #### 8 9579-7, 89898-4, 5643-2, 45825-9, LIVR, 3040-3, CBCA, BMP #### [facility] ([id number]) [address] [place] [address] 04869 Sodium [Moles/Vol] 139 mmol/L Normal 134-146 [facility] Comment on above: Performed By: #### 8 9579-7, 21833-5, 5643-2, 54427-7, LIVR, 3040-3, CBCA, BMP #### [facility] ([id number]) [address] [place] [address] 59002 Urea nitrogen [Mass/Vol] 11 mg/dL Normal 5-23 [facility] Comment on above: Performed By: #### 8 9579-7, 01129-9, 5643-2, 50571-6, LIVR, 3040-3, CBCA, BMP #### [facility] ([id number]) [address] [place] [address] 94576 LIPASEon 09-05-2024 Lipase [Catalytic activity/Vol] 44 U/L High 17-40 [facility] Comment on above: Performed By: #### 8 9579-7, 41224-2, 5643-2, 15209-4, LIVR, 3040-3, CBCA, BMP #### [facility] ([id number]) [address] [place] [address] 10491 CBC WITH AUTO DIFFERENTIALon 08-10-2024 BASOPHILS ABSOLUTE COUNT (10*3/UL) BY AUTOMATED COUNT 0.2 10*3/uL Normal 0.0-0.2 [facility] Comment on above: Performed By: #### 8 9579-7, 47896-9, 5643-2, 48280-6, LIVR, 3040-3, CBCA, BMP #### [facility] ([id number]) [address] [place] [address] 28028 BASOPHILS RELATIVE PERCENT BY AUTOMATED COUNT 2.0 % Normal [facility] Comment on above: Performed By: #### 8 9579-7, 96720-3, 5643-2, 10188-5, LIVR, 3040-3, CBCA, BMP #### [facility] ([id number]) [address] [place] [address] 32031 CELLAVISION DIFFERENTIAL TYPE AUTOMATED DIFFERENTIAL Normal [facility] Comment on above: Performed By: #### 8 9579-7, 79022-7, 5643-2, 27698-0, LIVR, 3040-3, CBCA, BMP #### [facility] ([id number]) [address] [place] [address] 85629 Eosinophils (Bld) [#/Vol] 0.1 10*3/uL Normal 0.0-0.4 [facility] Comment on above: Performed By: #### 8 9579-7, 80640-9, 5643-2, 25183-5, LIVR, 3040-3, CBCA, BMP #### [facility] ([id number]) [address] [place] [address] 03562 EOSINOPHILS RELATIVE PERCENT BY AUTOMATED COUNT 0.8 % Normal [facility] Comment on above: Performed By: #### 8 9579-7, 97773-4, 5643-2, 92128-4, LIVR, 3040-3, CBCA, BMP #### [facility] ([id number]) [address] [place] [address] 68562 Erythrocyte distribution width (RBC) [Ratio] 13.0 % Normal 11.5-15 [facility] Comment on above: Performed By: #### 8 9579-7, 22706-1, 5643-2, 96501-9, LIVR, 3040-3, CBCA, BMP #### [facility] ([id number]) [address] [place] [address] 57699 Hematocrit (Bld) [Volume fraction] 41.7 % Normal 35-47 [facility] Comment on above: Performed By: #### 8 9579-7, 70187-3, 5643-2, 67205-6, LIVR, 3040-3, CBCA, BMP #### [facility] ([id number]) [address] [place] [address] 35877 Hemoglobin (Bld) [Mass/Vol] 14.2 g/dL Normal 11.7-15.5 [facility] Comment on above: Performed By: #### 8 9579-7, 23492-3, 5643-2, 76615-9, LIVR, 3040-3, CBCA, BMP #### [facility] ([id number]) [address] [place] [address] 26229 LYMPHOCYTES ABSOLUTE COUNT (10*3/UL) BY AUTOMATED COUNT 2.1 10*3/uL Normal 1.0-3.5 [facility] Comment on above: Performed By: #### 8 9579-7, 67625-9, 5643-2, 06995-9, LIVR, 3040-3, CBCA, BMP #### [facility] ([id number]) [address] [place] [address] 34203 LYMPHOCYTES RELATIVE PERCENT BY AUTOMATED COUNT 18.1 % Normal [facility] Comment on above: Performed By: #### 8 9579-7, 20955-3, 5643-2, 45227-3, LIVR, 3040-3, CBCA, BMP #### [facility] ([id number]) [address] [place] [address] 32677 MCH (RBC) [Entitic mass] 33.1 pg Normal 27-34 [facility] Comment on above: Performed By: #### 8 9579-7, 45543-5, 5643-2, 82277-8, LIVR, 3040-3, CBCA, BMP #### [facility] ([id number]) [address] [place] [address] 39963 MCHC (RBC) [Mass/Vol] 34.0 g/dL Normal 32-36 [facility] Comment on above: Performed By: #### 8 9579-7, 56640-5, 5643-2, 00701-8, LIVR, 3040-3, CBCA, BMP #### [facility] ([id number]) [address] [place] [address] 58256 MCV (RBC) [Entitic vol] 97 fL Normal 80-100 [facility] Comment on above: Performed By: #### 8 9579-7, 45380-7, 5643-2, 80621-3, LIVR, 3040-3, CBCA, BMP #### [facility] ([id number]) [address] [place] [address] 20724 MONOCYTES ABSOLUTE COUNT (10*3/UL) BY AUTOMATED COUNT 0.9 10*3/uL Normal 0.0-0.9 [facility] Comment on above: Performed By: #### 8 9579-7, 22402-7, 5643-2, 74266-1, LIVR, 3040-3, CBCA, BMP #### [facility] ([id number]) [address] [place] [address] 78314 MONOCYTES RELATIVE PERCENT BY AUTOMATED COUNT 7.9 % Normal [facility] Comment on above: Performed By: #### 8 9579-7, 13383-3, 5643-2, 37853-3, LIVR, 3040-3, CBCA, BMP #### [facility] ([id number]) [address] [place] [address] 21683 NEUTROPHILS ABSOLUTE COUNT BY AUTOMATED COUNT 8.4 10*3/uL High 1.5-6.6 [facility] Comment on above: Performed By: #### 8 9579-7, 35272-2, 5643-2, 21346-7, LIVR, 3040-3, CBCA, BMP #### [facility] ([id number]) [address] [place] [address] 04730 NEUTROPHILS RELATIVE PERCENT BY AUTOMATED COUNT 71.2 % Normal [facility] Comment on above: Performed By: #### 8 9579-7, 30064-0, 5643-2, 16040-1, LIVR, 3040-3, CBCA, BMP #### [facility] ([id number]) [address] [place] [address] 21674 Platelet mean volume (Bld) [Entitic vol] 8.1 fL Normal 7-12 [facility] Comment on above: Performed By: #### 8 9579-7, 40358-6, 5643-2, 61782-7, LIVR, 3040-3, CBCA, BMP #### [facility] ([id number]) [address] [place] [address] 49068 Platelets (Bld) [#/Vol] 272 10*3/uL Normal 150-450 [facility] Comment on above: Performed By: #### 8 9579-7, 57554-0, 5643-2, 64019-0, LIVR, 3040-3, CBCA, BMP #### [facility] ([id number]) [address] [place] [address] 52312 RBC COUNT 4.28 X10E12/L Normal 3.8-5.2 [facility] Comment on above: Performed By: #### 8 9579-7, 94491-4, 5643-2, 53697-5, LIVR, 3040-3, CBCA, BMP #### [facility] ([id number]) [address] [place] [address] 24612 WBC (Bld) [#/Vol] 11.8 10*3/uL High 4-11 [facility] Comment on above: Performed By: #### 8 9579-7, 10743-5, 5643-2, 13252-3, LIVR, 3040-3, CBCA, BMP #### [facility] ([id number]) [address] [place] [address] 02815 COMPREHENSIVE METABOLIC PANE Nimesh 08-10-2024 Albumin [Mass/Vol] 4.2 g/dL Normal 3.2-5.3 [facility] Comment on above: Performed By: #### 8 9579-7, 32855-5, 5643-2, 89890-9, LIVR, 3040-3, CBCA, BMP #### [facility] ([id number]) [address] [place] [address] 88502 ALP [Catalytic activity/Vol] 128 U/L Normal 39-130 [facility] Comment on above: Performed By: #### 8 9579-7, 95606-4, 5643-2, 10801-8, LIVR, 3040-3, CBCA, BMP #### [facility] ([id number]) [address] [place] [address] 25264 ALT [Catalytic activity/Vol] 16 U/L Normal <=31 [facility] Comment on above: Performed By: #### 8 9579-7, 47272-3, 5643-2, 20544-8, LIVR, 3040-3, CBCA, BMP #### [facility] ([id number]) [address] [place] [address] 30884 Anion gap [Moles/Vol] 4 mmol/L Low 5-15 [facility] Comment on above: Performed By: #### 8 9579-7, 71773-6, 5643-2, 52381-7, LIVR, 3040-3, CBCA, BMP #### [facility] ([id number]) [address] [place] [address] 66607 AST [Catalytic activity/Vol] 23 U/L Normal <=41 [facility] Comment on above: Performed By: #### 8 9579-7, 23754-9, 5643-2, 47536-4, LIVR, 3040-3, CBCA, BMP #### [facility] ([id number]) [address] [place] [address] 38409 Bilirubin [Mass/Vol] 0.3 mg/dL Normal 0.3-1.2 [facility] Comment on above: Performed By: #### 8 9579-7, 38184-4, 5643-2, 91674-5, LIVR, 3040-3, CBCA, BMP #### [facility] ([id number]) [address] [place] [address] 65212 Calcium [Mass/Vol] 9.8 mg/dL Normal 8.5-10.5 [facility] Comment on above: Performed By: #### 8 9579-7, 78711-6, 5643-2, 03218-2, LIVR, 3040-3, CBCA, BMP #### [facility] ([id number]) [address] [place] [address] 07140 Chloride [Moles/Vol] 106 mmol/L Normal 98-109 [facility] Comment on above: Performed By: #### 8 9579-7, 27737-7, 5643-2, 96633-7, LIVR, 3040-3, CBCA, BMP #### [facility] ([id number]) [address] [place] [address] 21737 CO2 [Moles/Vol] 27 mmol/L Normal 22-32 [facility] Comment on above: Performed By: #### 8 9579-7, 41532-1, 5643-2, 19322-5, LIVR, 3040-3, CBCA, BMP #### [facility] ([id number]) [address] [place] [address] 34398 Creatinine [Mass/Vol] 0.72 mg/dL Normal 0.40-1.00 [facility] Comment on above: Result Comment: METH OD TRACEABLE TO IDMS STANDARD Performed By: #### 8 9579-7, 01953-0, 5643-2, 02018-1, LIVR, 3040-3, CBCA, BMP #### [facility] ([id number]) [address] [place] [address] 12749 EGFR (CKD-EPI) NON-RACE DEPENDENT >^90 Normal >=60 [facility] Comment on above: Result Comment: eGFR not reported due to non-numeric value for Creatinine. Reported eGFR is based on the CKD-EPI 2020 equation that does not use a race coefficient. Performed By: #### 8 9579-7, 92195-2, 5643-2, 38100-5, LIVR, 3040-3, CBCA, BMP #### [facility] ([id number]) [address] [place] [address], [place] [address] Glucose [Mass/Vol] 115 mg/dL High 65-99 [facility] Comment on above: Performed By: #### 8 9579-7, 24457-6, 5643-2, 35713-5, LIVR, 3040-3, CBCA, BMP #### [facility] ([id number]) [address] [place] [address], [place] [address] Potassium [Moles/Vol] 4.3 mmol/L Normal 3.5-5.0 [facility] Comment on above: Performed By: #### 8 9579-7, 05644-6, 5643-2, 19540-0, LIVR, 3040-3, CBCA, BMP #### [facility] ([id number]) [address] [place] [address] Protein [Mass/Vol] 7.5 g/dL Normal 6.0-8.0 [facility] Comment on above: Performed By: #### 8 9579-7, 50816-7, 5643-2, 16267-9, LIVR, 3040-3, CBCA, BMP #### [facility] ([id number]) [address] [place] [address] Sodium [Moles/Vol] 137 mmol/L Normal 134-146 [facility] Comment on above: Performed By: #### 8 9579-7, 65649-7, 5643-2, 70369-1, LIVR, 3040-3, CBCA, BMP #### [facility] ([id number]) [address] [place] [address] Urea nitrogen [Mass/Vol] 10 mg/dL Normal 5-23 [facility] Comment on above: Performed By: #### 8 9579-7, 05755-2, 5643-2, 51899-5, LIVR, 3040-3, CBCA, BMP #### [facility] ([id number]) [address] [facility], [place] [address] LIPASEon 08-10-2024 Lipase [Catalytic activity/Vol] 138 U/L High 17-40 [facility] Comment on above: Performed By: #### 8 9579-7, 48818-2, 5643-2, 73450-4, LIVR, 3040-3, CBCA, BMP #### [facility] ([id number]) [address] [facility], [place] [address] CBC with Auto Differentialon 08-08-2024 Basophils (Bld) [#/Vol] 0.11 10*3/uL [facility] Basophils/100 WBC (Bld) 1 % 0 - 2 % [facility] Eosinophils (Bld) [#/Vol] 0.17 10*3/uL [facility] Eosinophils/100 WBC (Bld) 2 % 1 - 4 % [facility] Erythrocyte distribution width (RBC) [Ratio] 12.5 % 11.8 - 14.4 % [facility] Hematocrit (Bld) [Volume fraction] 44.1 % 36.3 - 47.1 % [facility] Hemoglobin (Bld) [Mass/Vol] 14.9 g/dL 11.9 - 15.1 g/dL [facility] Immature granulocytes (Bld) [#/Vol] 0.04 10*3/uL [facility] Immature granulocytes/100 WBC (Bld) 0 % 0 [facility] Lymphocytes/100 WBC (Bld) 30 % 24 - 43 % [facility] Lymphocytes/100 WBC (Bld) 3.09 % [facility] MCH (RBC) [Entitic mass] 33.4 pg 25.2 - 33.5 pg [facility] MCHC (RBC) [Mass/Vol] 33.8 g/dL 28.4 - 34.8 g/dL [facility] MCV (RBC) [Entitic vol] 98.9 fL 82.6 - 102.9 fL [facility] Monocytes/100 WBC (Bld) 9 % 3 - 12 % [facility] Monocytes/100 WBC (Bld) 0.88 % [facility] Neutrophils/100 WBC (Bld) 58 % 36 - 65 % [facility] Nucleated RBC/100 WBC (Bld) [Ratio] 0 % 0.0 per 100 WBC [facility] Platelet mean volume (Bld) [Entitic vol] 9.5 fL 8.1 - 13.5 fL [facility] Platelets (Bld) [#/Vol] 265 10*3/uL [facility] RBC (Bld) [#/Vol] 4.46 10*6/uL 3.95 - 5.11 m/uL [facility] Segmented neutrophils/100 WBC (Bld) 5.99 % [facility] WBC other (Bld) [#/Vol] 10.3 [facility] CBC with Diffon 08-08-2024 Abs. Basophil 0.11 k/uL Normal 0.00-0.20 [facility] Comment on above: Performed By: #### B MP, LIVP, LIP #### [facility] [address] [place] [address] Dr. Michel, [id number] [employer] Belt Operator: Ion Jasso MD Abs.Imm.Granulocyte 0.04 k/uL Normal 0.00-0.30 [facility] Comment on above: Performed By: #### B MP LIVP, LIP #### [address] [place], [facility] Char Belt Operator: Ion Jasso MD Abs.Neutrophil (Seg) 5.99 k/uL Normal 1.50-8.10 [facility] Comment on above: Performed By: #### B MP LIVP, LIP #### [address] [place] [address] Char Belt Operator: Ion Jasso MD Basophils/100 WBC (Bld) 1 % Normal 0-2 [facility] Comment on above: Performed By: #### B MP, LIVP, LIP #### [facility] [address] [place], [place] [id number] Char Belt Operator: Ion Jasso MD Eosinophils (Bld) [#/Vol] 0.17 10*3/uL Normal 0.00-0.44 [facility] Comment on above: Performed By: #### B MP, LIVP, LIP #### [address] [place], [place] [id number] Char Belt Operator: Ion Jasso MD Eosinophils/100 WBC (Bld) 2 % Normal 1-4 [facility] Comment on above: Performed By: #### B MP, LIVP, LIP #### [address] [place], [place] 8344483 Char Belt Operator: Ion Jasso MD Erythrocyte distribution width (RBC) [Ratio] 12.5 % Normal 11.8-14.4 [facility] Comment on above: Performed By: #### B MP, LIVP, LIP #### [address] [place], [place] [id number] Char Belt Operator: Ion Jasso MD Hematocrit (Bld) [Volume fraction] 44.1 % Normal 36.3-47.1 [facility] Comment on above: Performed By: #### B MP, LIVP, LIP #### [address] [place], [place] [phone] Char Belt Operator: Ion Jasso MD Hemoglobin (Bld) [Mass/Vol] 14.9 g/dL Normal 11.9-15.1 [facility] Comment on above: Performed By: #### B MP, LIVP, LIP #### [address] [place], [place] [phone] Char Belt Operator: Ion Jasso MD Immature granulocytes/100 WBC (Bld) 0 % Normal 0 [facility] Comment on above: Performed By: #### B MP, LIVP, LIP #### [address] [place], [place] [phone] Char Belt Operator: Ion Jasso MD Lymphocytes (Bld) [#/Vol] 3.09 10*3/uL Normal 1.10-3.70 [facility] Comment on above: Performed By: #### B MP, LIVP, LIP #### [facility] [address] [place] [phone] Char Belt Operator: Ion Jasso MD Lymphocytes/100 WBC (Bld) 30 % Normal 24-43 [facility] Comment on above: Performed By: #### B MP, LIVP, LIP #### [facility] [address] [place] [phone] Char Belt Operator: Ion Jasso MD MCH (RBC) [Entitic mass] 33.4 pg Normal 25.2-33.5 [facility] Comment on above: Performed By: #### B MP, LIVP, LIP #### [address] [place], [facility] Char Belt Operator: Ion Jasso MD MCHC (RBC) [Mass/Vol] 33.8 g/dL Normal 28.4-34.8 [facility] Comment on above: Performed By: #### B MP, LIVP, LIP #### [address] [place] [phone] Char Belt Operator: Ion Jasso MD MCV (RBC) [Entitic vol] 98.9 fL Normal 82.6-102.9 [facility] Comment on above: Performed By: #### B MP, LIVP, LIP #### [address] [place], [place] [phone] Char Belt Operator: Ion Jasso MD Monocytes (Bld) [#/Vol] 0.88 10*3/uL Normal 0.10-1.20 [facility] Comment on above: Performed By: #### B MP, LIVP, LIP #### [address] [place] [address] Char Belt Operator: Ion Jasso MD Monocytes/100 WBC (Bld) 9 % Normal 3-12 [facility] Comment on above: Performed By: #### B MP, LIVP, LIP #### [facility] [address] [place] [address] Char Belt Operator: Ion Jasso MD Neutrophil (Seg) 58 % Normal 36-65 [facility] Comment on above: Performed By: #### B MP, LIVP, LIP #### [facility] [address] [place] [address] Char Belt Operator: Ion Jasso MD NRBC Automated 0.0 per 100 WBC Normal 0.0 [facility] Comment on above: Performed By: #### B MP, LIVP, LIP #### [facility] [address] [place] [address] Char Belt Operator: Ion Jasso MD Platelet mean volume (Bld) [Entitic vol] 9.5 fL Normal 8.1-13.5 [facility] Comment on above: Performed By: #### B MP, LIVP, LIP #### [facility] [address] [place] [address] Char Belt Operator: Ion Jasso MD Platelets (Bld) [#/Vol] 265 10*3/uL Normal 138-453 [facility] Comment on above: Performed By: #### B MP, LIVP, LIP #### [facility] [address] [place] [address] Char Belt Operator: Ion Jasso MD RBC (Bld) [#/Vol] 4.46 10*6/uL Normal 3.95-5.11 [facility] Comment on above: Performed By: #### B MP, LIVP, LIP #### [facility] [address] [place] [address] Char Belt Operator: Ion Jasso MD WBC (Bld) [#/Vol] 10.3 10*3/uL Normal 3.5-11.3 [facility] Comment on above: Performed By: #### B NANCY MEDEL LIP #### [facility] [address] [place] [address] Char Belt Operator: Ion Jasso MD [facility] Albumin [Mass/Vol] 4.3 g/dL 3.5 - 5.2 g/dL [facility] Albumin/Globulin [Mass ratio] 1.5 {ratio} 1.0 - 2.5 [facility] ALP [Catalytic activity/Vol] 142 U/L High 35 - 104 U/L [facility] ALT [Catalytic activity/Vol] 9 U/L Low 10 - 35 U/L [facility] Anion gap [Moles/Vol] 12 mmol/L 9 - 16 mmol/L [facility] AST [Catalytic activity/Vol] 21 U/L 10 - 35 U/L [facility] Bilirubin [Mass/Vol] mg/dL 0.00 - 1.20 mg/dL [facility] Calcium [Mass/Vol] 10.2 mg/dL 8.6 - 10. 4 mg/dL [facility] Chloride [Moles/Vol] 103 mmol/L 98 - 10 7 mmol/L [facility] CO2 [Moles/Vol] 24 mmol/L 20 - 31 mmol/L [facility] Creatinine [Mass/Vol] 0.8 mg/dL 0.50 - 0.90 mg/dL [facility] Est, Glom Filt Rate 81 - PINF [facility] Comment on above: These results [...] [Mass/Vol] 86 mg/dL 74 - 99 mg/dL [facility] Potassium [Moles/Vol] 4.5 mmol/L 3.7 - 5.3 mmol/L [facility] Protein [Mass/Vol] 7.3 g/dL 6.6 - 8.7 g/dL [facility] Sodium [Moles/Vol] 139 mmol/L 136 - 145 mmol/L [facility] Urea nitrogen [Mass/Vol] 16 mg/dL 6 - 20 mg/dL [facility] Urea nitrogen/Creatinine [Mass ratio] 20 mg/mg 9 - 20 [facility] Comp Metabolic Profon 2024 Albumin [Mass/Vol] 4.3 g/dL Normal 3.5-5.2 [facility] Comment on above: Performed By: #### B MP, LIVP, LIP #### [facility] [address] [place] [address] Char Belt Operator: Ion Jasso MD Albumin/Glob Ratio 1.5 Normal 1.0-2.5 [facility] Comment on above: Performed By: #### B MP, LIVP, LIP #### [facility] [address] [place] [address] Char Belt Operator: Ion Jasso MD Alkaline Phos 142 U/L High 35-104 [facility] Comment on above: Performed By: #### B MP, LIVP, LIP #### [facility] [address] [place], [place] [phone] Char Belt Operator: Ion Jasso MD ALT [Catalytic activity/Vol] 9 U/L Low 10-35 [facility] Comment on above: Performed By: #### B MP, LIVP, LIP #### [facility] [address] [place] [address] Char Belt Operator: Ion Jasso MD Anion gap [Moles/Vol] 12 mmol/L Normal 9-16 [facility] Comment on above: Performed By: #### B MP, LIVP, LIP #### [facility] [address] [place], [place] [phone] Char Belt Operator: Ion Jasso MD AST [Catalytic activity/Vol] 21 U/L Normal 10-35 [facility] Comment on above: Performed By: #### B MP, LIVP, LIP #### [facility] [address] [place], [place] [phone] Char Belt Operator: Ion Jasso MD Bilirubin [Mass/Vol] mg/dL Normal 0.00-1.20 [facility] Comment on above: Performed By: #### B MP, LIVP, LIP #### [facility] [address] [place], [place] [phone] Char Belt Operator: Ion Jasso MD BUN/CRE Ratio 20 Normal 9-20 [facility] Comment on above: Performed By: #### B MP, LIVP, LIP #### [facility] [address] [place] [address] Dr. [place], [place] [phone] Char Belt Operator: Ion Jasso MD Calcium [Mass/Vol] 10.2 mg/dL Normal 8.6-10.4 [facility] Comment on above: Performed By: #### B MP, LIVP, LIP #### [address] [place], [place] 1917883 Char Belt Operator: Ion Jasso MD Chloride [Moles/Vol] 103 mmol/L Normal 98-107 [facility] Comment on above: Performed By: #### B MP, LIVP, LIP #### [facility] [address] [place], [place] 0684083 Char Belt Operator: Ion Jasso MD CO2 [Moles/Vol] 24 mmol/L Normal 20-31 [facility] Comment on above: Performed By: #### B MP, LIVP, LIP #### [facility] [address] [place], [place] [phone] Char Belt Operator: Ion Jasso MD Creatinine [Mass/Vol] 0.8 mg/dL Normal 0.50-0.90 [facility] Comment on above: Performed By: #### B MP, LIVP, LIP #### [facility] [address] [place] [address] Char Belt Operator: Ion Jasso MD GFR/1.73 sq M.predicted among non-blacks MDRD (S/P/Bld) [Vol rate/Area] 81 mL/min/{1.73_m2} Normal >60 [facility] Comment on above: Result Comment: These [...] affects renal tubular secretion. Performed By: #### B MP, LIVP, LIP #### [facility] [address] [place], [place] 0353983 Char Belt Operator: Ion Jasso MD Glucose [Mass/Vol] 86 mg/dL Normal 74-99 [facility] Comment on above: Performed By: #### B MP, LIVP, LIP #### [facility] [address] [place] [address] Char Belt Operator: Ion Jasso MD Potassium [Moles/Vol] 4.5 mmol/L Normal 3.7-5.3 [facility] Comment on above: Performed By: #### B MP, LIVP, LIP #### [facility] [address] [place], [place] [phone] Char Belt Operator: Ion Jasso MD Protein [Mass/Vol] 7.3 g/dL Normal 6.6-8.7 [facility] Comment on above: Performed By: #### B MP, LIVP, LIP #### [facility] [address] [place], [place] [phone] Char Belt Operator: Ion Jasso MD Sodium [Moles/Vol] 139 mmol/L Normal 136-145 [facility] Comment on above: Performed By: #### B LIZY LIVP, LIP #### [facility] [address] [place] [address] Char Belt Operator: Ion Jasso MD Urea nitrogen [Mass/Vol] 16 mg/dL Normal 6-20 [facility] Comment on above: Performed By: #### B LIZY LIVP, LIP #### [facility] [address] [place], [place] [phone] Char Belt Operator: Ion Jasso MD Lactic Acidon 08-08-2024 Lactate (BldV) [Moles/Vol] 1.2 mmol/L 0.5 - 2.2 mmol/L [facility] Lactate [Moles/Vol] 1.2 mmol/L Normal 0.5-2.2 [facility] Comment on above: Performed By: #### B LIZY LIVP, LIP #### [facility] [address] [place] [address] Char Belt Operator: Ion Jasso MD Lipaseon 08-08-2024 Lipase [Catalytic activity/Vol] 109 U/L High 13 - 60 U/L [facility] Lipase [Catalytic activity/Vol] 109 U/L High 13-60 [facility] Comment on above: Performed By: #### B LIZY LIVP, LIP #### [facility] [address] [place] [address] Char Belt Operator: Ion Jasso MD Magnesiumon 08-08-2024 Magnesium [Mass/Vol] 2.4 mg/dL 1.6 - 2 .6 mg/dL [facility] Magnesium [Mass/Vol] 2.4 mg/dL Normal 1.6-2.6 [facility] Comment on above: Performed By: #### B LIZY LIVP, LIP #### [facility] [address] [place], [place] [phone] Char Belt Operator: Ion Jasso MD Microscopic Urinalysison Bacteria LM Ql (Urine sed) 1+ Abnormal None [facility] Epithelial cells LM.HPF (Urine sed) [#/Area] 10 TO 20 [facility] Interpretation and review of laboratory results Abnormal [facility] Mucus Ql (Urine sed) TRACE Abnormal None [facility] RBC LM.HPF (Urine sed) [#/Area] 0 TO 2 [facility] WBC LM.HPF (Urine sed) [#/Area] 0 TO 2 [facility] No Panel Informationon 08-08 Interpretation and review of laboratory results Abnormal [facility] UA w/Reflex Cultureon 2024 Clarity (U) SLIGHTLY CLOUDY Abnormal CLEAR [facility] Comment on above: Performed By: #### L WALTER ROONEY, CP #### [address] [place] [phone] Char Belt Operator: Ion Jasso MD Color (U) Yellow Normal YEL [facility] Comment on above: Performed By: #### L IP CDP, CP #### [address] [place] [phone] Char Belt Operator: Ion Jasso MD Leukocyte esterase Test strip Ql (U) Negative Normal NEG [facility] Comment on above: Performed By: #### L TORIBIO CDP, CP #### [address] [place] [address] Char Belt Operator: Ion Jasso MD Bilirubin, SemiQt,Ur Negative Normal NEG [facility] Comment on above: Performed By: #### L IP, CDP, CP #### [address] [place] [address] Char Belt Operator: Ion Jasso MD Blood, Urine Negative Normal NEG [facility] Comment on above: Performed By: #### L IP, CDP, CP #### [facility] [address] [place] [address] Dr. [place], [place] [phone] Char Belt Operator: Ion Jasso MD Glucose Ql (U) Negative Normal NEG [facility] Comment on above: Performed By: #### L IP, CDP, CP #### [facility] [address] [place] [address] Dr. [place], [place] [phone] Char Belt Operator: Ion Jasso MD Ketones Ql (U) Negative Normal NEG [facility] Comment on above: Performed By: #### L IP, CDP, CP #### [facility] [address] [place] [address] [place] [address] Char Belt Operator: Ion Jasso MD Nitrite,Ur Negative Normal NEG [facility] Comment on above: Performed By: #### L IP, CDP, CP #### [facility] [address] [place] [address] Dr. [place], [place] [address] Char Belt Operator: Ion Jasso MD PH,Ur 6.0 Normal 5.0-9.0 [facility] Comment on above: Performed By: #### L IP, CDP, CP #### [address] [place], [place] [address] Char Belt Operator: Ion Jasso MD Protein Ql (U) Negative Normal NEG [facility] Comment on above: Performed By: #### L IP, CDP, CP #### [facility] [address] [place] [address] Dr. [place], [place] [address] Char Belt Operator: Ion Jasso MD Spec. [place],Ur 1.020 Normal 1.010-1.02 0 [facility] Comment on above: Performed By: #### L IP, CDP, CP #### [address] [place], [place] 8009483 Char Belt Operator: Ion Jasso MD Urobilinogen,Ur Normal Normal 0.0-1.0 [facility] Comment on above: Performed By: #### L IP, WALTER, CP #### [facility] [address] [place] [address] Char Belt Operator: Ion Jasso MD Urinalysis with Reflex to Cu ltureon 08-08-2024 Bilirubin Ql (U) Negative NEGATIVE [facility] Glucose Test strip (U) [Mass/Vol] Negative NEGATIVE mg/dL [facility] Hemoglobin Auto test strip Ql (U) Negative NEGATIVE [facility] Interpretation and review of laboratory results Abnormal [facility] Ketones (U) [Mass/Vol] Negative NEGAT MATTHIAS mg/dL [facility] Nitrite Ql (U) Negative NEGATIVE [facility] pH (U) 6 [pH] 5.0 - 9.0 [facility] Protein (U) [Mass/Vol] Negative NEGAT MATTHIAS mg/dL [facility] Specific gravity (U) [Rel density] 1.02 1.010 - 1.020 [facility] Urobilinogen Qn (U) Normal 0.0 - 1. 0 EU/dL [facility] Urinalysis,Microon 5 Amorphous sediment LM Ql (Urine sed) TRACE Abnormal NONE [facility] Comment on above: Performed By: #### L TORIBIO, CDP, CP #### [facility] [address] [place] [address] [place] [address] Char Belt Operator: Ion Jasso MD Bacteria 1+ Abnormal [facility] Comment on above: Performed By: #### L WALTER ROONEY, CP #### [facility] [address] [place] [address] Char Belt Operator: Ion Jasso MD Epithelial cells LM Ql (Urine sed) 10 TO 20 Normal 0-25 [facility] Comment on above: Performed By: #### L TORIBIO, CDP, CP #### [facility] [address] [place] [address] Char Belt Operator: Ion Jasso MD Mucus Strands TRACE Abnormal NONE [facility] Comment on above: Performed By: #### L IP, CDP, CP #### [facility] [address] [place] [address] Char Belt Operator: Ion Jasso MD Urine RBC's 0 TO 2 Normal 0-2 [facility] Comment on above: Performed By: #### L IP, CDP, CP #### [facility] [address] [place] [address] Char Belt Operator: Ion Jasso MD Urine WBC's 0 TO 2 Normal 0-5 [facility] Comment on above: Performed By: #### L IP, CDP, CP #### [facility] [address] [place] [address] Char Belt Operator: Ion Jasso MD CBC AND AUTO DIFFon 06-28-19 25 ABSOLUTE BASOPHIL 0.1 X10E9/L Normal 0.0-0.2 [facility] Comment on above: Performed By: #### 8 9579-7, 24423-5, 5643-2, 20803-1, LIVR, 3040-3, CBCA, BMP #### [facility] ([id number]) [address] [place] [address] ABSOLUTE NEUTROPHIL 4.9 X10E9/L Normal 1.5-6.6 [facility] Comment on above: Performed By: #### 8 9579-7, 07902-7, 5643-2, 20501-8, LIVR, 3040-3, CBCA, BMP #### [facility] ([id number]) [address] [place] [address] Basophils/100 WBC (Bld) 1.2 % Normal [facility] Comment on above: Performed By: #### 8 9579-7, 81484-2, 5643-2, 71538-3, LIVR, 3040-3, CBCA, BMP #### [facility] ([id number]) [address] [place] [address] Eosinophils (Bld) [#/Vol] 0.1 10*3/uL Normal 0.0-0.4 [facility] Comment on above: Performed By: #### 8 9579-7, 45905-6, 5643-2, 58455-6, LIVR, 3040-3, CBCA, BMP #### [facility] ([id number]) [address] [place] [address] Eosinophils/100 WBC (Bld) 1.3 % Normal [facility] Comment on above: Performed By: #### 8 9579-7, 33865-3, 5643-2, 83067-0, LIVR, 3040-3, CBCA, BMP #### [facility] ([id number]) [address] [place] [address] Erythrocyte distribution width (RBC) [Ratio] 13.1 % Normal 11.5-15.0 [facility] Comment on above: Performed By: #### 8 9579-7, 52169-2, 5643-2, 58214-6, LIVR, 3040-3, CBCA, BMP #### [facility] ([id number]) [address] [place] [address]134 Hematocrit (Bld) [Volume fraction] 40.9 % Normal 35-47 [facility] Comment on above: Performed By: #### 8 9579-7, 41562-1, 5643-2, 32244-5, LIVR, 3040-3, CBCA, BMP #### [facility] ([id number]) [address] [place] [address] 77817 Hemoglobin (Bld) [Mass/Vol] 14.3 g/dL Normal 11.7-15.5 [facility] Comment on above: Performed By: #### 8 9579-7, 54264-5, 5643-2, 89241-8, LIVR, 3040-3, CBCA, BMP #### [facility] ([id number]) [address] [place] [address] 63219 Lymphocytes (Bld) [#/Vol] 2.3 10*3/uL Normal 1.0-3.5 [facility] Comment on above: Performed By: #### 8 9579-7, 89738-5, 5643-2, 62098-6, LIVR, 3040-3, CBCA, BMP #### [facility] ([id number]) [address] [place] [address] 34244 Lymphocytes/100 WBC (Bld) 27.6 % Normal [facility] Comment on above: Performed By: #### 8 9579-7, 67131-4, 5643-2, 88731-6, LIVR, 3040-3, CBCA, BMP #### [facility] ([id number]) [address] [place] [address] 31771 MCH (RBC) [Entitic mass] 34.2 pg High 27-34 [facility] Comment on above: Performed By: #### 8 9579-7, 13391-4, 5643-2, 76673-6, LIVR, 3040-3, CBCA, BMP #### [facility] ([id number]) [address] [place] [address] 41489 MCHC (RBC) [Mass/Vol] 35.0 g/dL Normal 32-36 [facility] Comment on above: Performed By: #### 8 9579-7, 23801-7, 5643-2, 79110-4, LIVR, 3040-3, CBCA, BMP #### [facility] ([id number]) [address] [place] [address] 89016 MCV (RBC) [Entitic vol] 98 fL Normal 80-100 [facility] Comment on above: Performed By: #### 8 9579-7, 12587-5, 5643-2, 75571-5, LIVR, 3040-3, CBCA, BMP #### [facility] ([id number]) [address] [place] [address] 14868 Monocytes (Bld) [#/Vol] 1.0 10*3/uL High 0-0.9 [facility] Comment on above: Performed By: #### 8 9579-7, 49226-8, 5643-2, 74052-1, LIVR, 3040-3, CBCA, BMP #### [facility] ([id number]) [address] [place] [address] 95082 Monocytes/100 WBC (Bld) 11.4 % Normal [facility] Comment on above: Performed By: #### 8 9579-7, 36731-5, 5643-2, 17284-7, LIVR, 3040-3, CBCA, BMP #### [facility] ([id number]) [address] [place] [address] 82621 Neutrophils/100 WBC (Bld) 58.5 % Normal [facility] Comment on above: Performed By: #### 8 9579-7, 08254-8, 5643-2, 21892-3, LIVR, 3040-3, CBCA, BMP #### [facility] ([id number]) [address] [place] [address] 65688 Platelet mean volume (Bld) [Entitic vol] 7.9 fL Normal 7-12 [facility] Comment on above: Performed By: #### 8 9579-7, 76549-4, 5643-2, 74952-1, LIVR, 3040-3, CBCA, BMP #### [facility] ([id number]) [address] [place] [address] 49344 Platelets (Bld) [#/Vol] 267 10*3/uL Normal 150-450 [facility] Comment on above: Performed By: #### 8 9579-7, 18631-3, 5643-2, 14828-2, LIVR, 3040-3, CBCA, BMP #### [facility] ([id number]) [address] [place] [address] 41189 RBC COUNT 4.18 X10E12/L Normal 3.80-5.20 [facility] Comment on above: Performed By: #### 8 9579-7, 31653-9, 5643-2, 30338-7, LIVR, 3040-3, CBCA, BMP #### [facility] ([id number]) [address] [place] [address] 62307 WBC (Bld) [#/Vol] 8.4 10*3/uL Normal 4.0-11.0 [facility] Comment on above: Performed By: #### 8 9579-7, 74758-5, 5643-2, 50112-5, LIVR, 3040-3, CBCA, BMP #### [facility] ([id number]) [address] [place] [address] 09436 COMPREHENSIVE METABOLIC PANE Nimesh 06-27-2024 Albumin [Mass/Vol] 4.1 g/dL Normal 3.2-5.3 [facility] Comment on above: Performed By: #### 8 9579-7, 10632-1, 5643-2, 00419-3, LIVR, 3040-3, CBCA, BMP #### [facility] ([id number]) [address] [place] [address] 20843 ALP [Catalytic activity/Vol] 133 U/L High 39-130 [facility] Comment on above: Performed By: #### 8 9579-7, 92853-3, 5643-2, 95706-5, LIVR, 3040-3, CBCA, BMP #### [facility] ([id number]) [address] [place] [address] 76067 ALT [Catalytic activity/Vol] 14 U/L Normal 0-31 [facility] Comment on above: Performed By: #### 8 9579-7, 60221-1, 5643-2, 97231-3, LIVR, 3040-3, CBCA, BMP #### [facility] ([id number]) [address] [place] [address] 51343 Anion gap [Moles/Vol] 8 mmol/L Normal 5-15 [facility] Comment on above: Performed By: #### 8 9579-7, 61836-3, 5643-2, 46364-9, LIVR, 3040-3, CBCA, BMP #### [facility] ([id number]) [address] [place] [address] 23173 AST [Catalytic activity/Vol] 19 U/L Normal 0-41 [facility] Comment on above: Performed By: #### 8 9579-7, 80415-1, 5643-2, 48973-0, LIVR, 3040-3, CBCA, BMP #### [facility] ([id number]) [address] [place] [address] 90084 Bilirubin [Mass/Vol] 0.3 mg/dL Normal 0.3-1.2 [facility] Comment on above: Performed By: #### 8 9579-7, 39028-1, 5643-2, 17818-7, LIVR, 3040-3, CBCA, BMP #### [facility] ([id number]) [address] [place] [address] 53310 Calcium [Mass/Vol] 10.7 mg/dL High 8.5-10.5 [facility] Comment on above: Performed By: #### 8 9579-7, 72002-6, 5643-2, 30463-1, LIVR, 3040-3, CBCA, BMP #### [facility] ([id number]) [address] [place] [address] 70806 Chloride [Moles/Vol] 104 mmol/L Normal 98-109 [facility] Comment on above: Performed By: #### 8 9579-7, 71704-4, 5643-2, 87232-2, LIVR, 3040-3, CBCA, BMP #### [facility] ([id number]) [address] [place] [address] 87520 CO2 [Moles/Vol] 26 mmol/L Normal 22-32 [facility] Comment on above: Performed By: #### 8 9579-7, 29325-8, 5643-2, 36409-2, LIVR, 3040-3, CBCA, BMP #### [facility] ([id number]) [address] [place] [address] 11388 Creatinine [Mass/Vol] 0.76 mg/dL Normal 0.40-1.00 [facility] Comment on above: Result Comment: METH OD TRACEABLE TO IDMS STANDARD Performed By: #### 8 9579-7, 36065-5, 5643-2, 29000-2, LIVR, 3040-3, CBCA, BMP #### [facility] ([id number]) [address] [place] [address] [place] [address] eGFR (CKD-EPI) NON-RACE DEPENDENT >90 Normal >59 [facility] Comment on above: Result Comment: Reported eGFR is based on the CKD-EPI 2020 equation that does not use a race coefficient. Performed By: #### 8 9579-7, 33123-3, 5643-2, 17794-2, LIVR, 3040-3, CBCA, BMP #### [facility] ([id number]) [address] [place] [address] 81506 Glucose [Mass/Vol] 106 mg/dL High 65-99 [facility] Comment on above: Performed By: #### 8 9579-7, 14209-8, 5643-2, 31943-7, LIVR, 3040-3, CBCA, BMP #### [facility] ([id number]) [address] [place] [address] 83918 Potassium [Moles/Vol] 3.9 mmol/L Normal 3.5-5.0 [facility] Comment on above: Performed By: #### 8 9579-7, 98649-4, 5643-2, 66238-5, LIVR, 3040-3, CBCA, BMP #### [facility] ([id number]) [address] [place] [address] 53660 Protein [Mass/Vol] 7.0 g/dL Normal 6.0-8.0 [facility] Comment on above: Performed By: #### 8 9579-7, 76224-4, 5643-2, 26152-3, LIVR, 3040-3, CBCA, BMP #### [facility] ([id number]) [address] [place] [address] 32266 Sodium [Moles/Vol] 138 mmol/L Normal 134-146 [facility] Comment on above: Performed By: #### 8 9579-7, 21919-7, 5643-2, 61035-0, LIVR, 3040-3, CBCA, BMP #### [facility] ([id number]) [address] [place] [address] 37177 Urea nitrogen [Mass/Vol] 10 mg/dL Normal 5-23 [facility] Comment on above: Performed By: #### 8 9579-7, 64019-4, 5643-2, 76447-1, LIVR, 3040-3, CBCA, BMP #### [facility] ([id number]) [address] [place] [address] 93475 LIPASEon 06-27-2024 Lipase [Catalytic activity/Vol] 37 U/L Normal 17-40 [facility] Comment on above: Performed By: #### 8 9579-7, 08100-1, 5643-2, 93081-5, LIVR, 3040-3, CBCA, BMP #### [facility] ([id number]) [address] [place] [address] 90679 BASIC METABOLIC PANLon 06-15 Anion gap [Moles/Vol] 8 mmol/L Normal 5-15 [facility] Comment on above: Performed By: #### 8 9579-7, 31687-1, 5643-2, 99271-5, LIVR, 3040-3, CBCA, BMP #### [facility] ([id number]) [address] [place] [address] 65288 Calcium [Mass/Vol] 9.7 mg/dL Normal 8.5-10.5 [facility] Comment on above: Performed By: #### 8 9579-7, 81706-5, 5643-2, 35498-1, LIVR, 3040-3, CBCA, BMP #### [facility] ([id number]) [address] [place] [address] 09409 Chloride [Moles/Vol] 105 mmol/L Normal 98-109 [facility] Comment on above: Performed By: #### 8 9579-7, 34521-9, 5643-2, 93846-3, LIVR, 3040-3, CBCA, BMP #### [facility] ([id number]) [address] [place] [address] 08791 CO2 [Moles/Vol] 24 mmol/L Normal 22-32 [facility] Comment on above: Performed By: #### 8 9579-7, 87384-6, 5643-2, 97333-5, LIVR, 3040-3, CBCA, BMP #### [facility] ([id number]) [address] [place] [address] 61691 Creatinine [Mass/Vol] 0.78 mg/dL Normal 0.40-1.00 [facility] Comment on above: Result Comment: METH OD TRACEABLE TO IDMS STANDARD Performed By: #### 8 9579-7, 18141-9, 5643-2, 36273-5, LIVR, 3040-3, CBCA, BMP #### [facility] ([id number]) [address] [place] [address] 98312 eGFR (CKD-EPI) NON-RACE DEPENDENT >90 Normal >59 [facility] Comment on above: Result Comment: Reported eGFR is based on the CKD-EPI 2020 equation that does not use a race coefficient. Performed By: #### 8 9579-7, 67812-9, 5643-2, 47198-4, LIVR, 3040-3, CBCA, BMP #### [facility] ([id number]) [address] [place] [address] 64689 Glucose [Mass/Vol] 97 mg/dL Normal 65-99 [facility] Comment on above: Performed By: #### 8 9579-7, 28439-4, 5643-2, 89762-2, LIVR, 3040-3, CBCA, BMP #### [facility] ([id number]) [address] [place] [address] 49380 Potassium [Moles/Vol] 3.3 mmol/L Low 3.5-5.0 [facility] Comment on above: Performed By: #### 8 9579-7, 80009-3, 5643-2, 42401-9, LIVR, 3040-3, CBCA, BMP #### [facility] ([id number]) [address] [place] [address] 72417 Sodium [Moles/Vol] 137 mmol/L Normal 134-146 [facility] Comment on above: Performed By: #### 8 9579-7, 70844-7, 5643-2, 26160-3, LIVR, 3040-3, CBCA, BMP #### [facility] ([id number]) [address] [place] [address] 53369 Urea nitrogen [Mass/Vol] 9 mg/dL Normal 5-23 [facility] Comment on above: Performed By: #### 8 9579-7, 81897-3, 5643-2, 67506-2, LIVR, 3040-3, CBCA, BMP #### [facility] ([id number]) [address] [place] [address] 79671 CBC AND AUTO DIFFon 06-16-19 25 ABSOLUTE BASOPHIL 0.1 X10E9/L Normal 0.0-0.2 [facility] Comment on above: Performed By: #### 8 9579-7, 37386-6, 5643-2, 54336-8, LIVR, 3040-3, CBCA, BMP #### [facility] ([id number]) [address] [place] [address] 23668 ABSOLUTE NEUTROPHIL 6.2 X10E9/L Normal 1.5-6.6 [facility] Comment on above: Performed By: #### 8 9579-7, 37764-9, 5643-2, 41947-2, LIVR, 3040-3, CBCA, BMP #### [facility] ([id number]) [address] [place] [address] 69482 Basophils/100 WBC (Bld) 0.9 % Normal [facility] Comment on above: Performed By: #### 8 9579-7, 78470-2, 5643-2, 18887-6, LIVR, 3040-3, CBCA, BMP #### [facility] ([id number]) [address] [place] [address] 52229 Eosinophils (Bld) [#/Vol] 0.1 10*3/uL Normal 0.0-0.4 [facility] Comment on above: Performed By: #### 8 9579-7, 78291-7, 5643-2, 94918-3, LIVR, 3040-3, CBCA, BMP #### [facility] ([id number]) [address] [place] [address] 47019 Eosinophils/100 WBC (Bld) 1.1 % Normal [facility] Comment on above: Performed By: #### 8 9579-7, 89671-8, 5643-2, 81987-8, LIVR, 3040-3, CBCA, BMP #### [facility] ([id number]) [address] [place] [address] 60610 Erythrocyte distribution width (RBC) [Ratio] 13.3 % Normal 11.5-15.0 [facility] Comment on above: Performed By: #### 8 9579-7, 73888-2, 5643-2, 99784-0, LIVR, 3040-3, CBCA, BMP #### [facility] ([id number]) [address] [place] [address] 57570 Hematocrit (Bld) [Volume fraction] 42.3 % Normal 35-47 [facility] Comment on above: Performed By: #### 8 9579-7, 12197-5, 5643-2, 42027-6, LIVR, 3040-3, CBCA, BMP #### [facility] ([id number]) [address] [place] [address] 45813 Hemoglobin (Bld) [Mass/Vol] 14.3 g/dL Normal 11.7-15.5 [facility] Comment on above: Performed By: #### 8 9579-7, 82930-5, 5643-2, 76456-4, LIVR, 3040-3, CBCA, BMP #### [facility] ([id number]) [address] [place] [address] 07600 Lymphocytes (Bld) [#/Vol] 2.6 10*3/uL Normal 1.0-3.5 [facility] Comment on above: Performed By: #### 8 9579-7, 12923-9, 5643-2, 48884-8, LIVR, 3040-3, CBCA, BMP #### [facility] ([id number]) [address] [place] [address] 31166 Lymphocytes/100 WBC (Bld) 26.2 % Normal [facility] Comment on above: Performed By: #### 8 9579-7, 65013-8, 5643-2, 93446-7, LIVR, 3040-3, CBCA, BMP #### [facility] ([id number]) [address] [place] [address] 97763 MCH (RBC) [Entitic mass] 33.5 pg Normal 27-34 [facility] Comment on above: Performed By: #### 8 9579-7, 62530-2, 5643-2, 86582-6, LIVR, 3040-3, CBCA, BMP #### [facility] ([id number]) [address] [place] [address] 49714 MCHC (RBC) [Mass/Vol] 33.8 g/dL Normal 32-36 [facility] Comment on above: Performed By: #### 8 9579-7, 36726-8, 5643-2, 32966-7, LIVR, 3040-3, CBCA, BMP #### [facility] ([id number]) [address] [place] [address] 07439 MCV (RBC) [Entitic vol] 99 fL Normal 80-100 [facility] Comment on above: Performed By: #### 8 9579-7, 15616-3, 5643-2, 24677-2, LIVR, 3040-3, CBCA, BMP #### [facility] ([id number]) [address] [place] [address] 43327 Monocytes (Bld) [#/Vol] 0.8 10*3/uL Normal 0-0.9 [facility] Comment on above: Performed By: #### 8 9579-7, 25885-1, 5643-2, 98323-8, LIVR, 3040-3, CBCA, BMP #### [facility] ([id number]) [address] [place] [address] 06019 Monocytes/100 WBC (Bld) 8.3 % Normal [facility] Comment on above: Performed By: #### 8 9579-7, 53195-6, 5643-2, 87754-4, LIVR, 3040-3, CBCA, BMP #### [facility] ([id number]) [address] [place] [address] 06569 Neutrophils/100 WBC (Bld) 63.5 % Normal [facility] Comment on above: Performed By: #### 8 9579-7, 95257-7, 5643-2, 68458-2, LIVR, 3040-3, CBCA, BMP #### [facility] ([id number]) [address] [place] [address] 05736 Platelet mean volume (Bld) [Entitic vol] 8.0 fL Normal 7-12 [facility] Comment on above: Performed By: #### 8 9579-7, 37883-3, 5643-2, 45678-2, LIVR, 3040-3, CBCA, BMP #### [facility] ([id number]) [address] [place] [address] 49615 Platelets (Bld) [#/Vol] 263 10*3/uL Normal 150-450 [facility] Comment on above: Performed By: #### 8 9579-7, 35343-4, 5643-2, 16135-9, LIVR, 3040-3, CBCA, BMP #### [facility] ([id number]) [address] [place] [address] 65118 RBC COUNT 4.28 X10E12/L Normal 3.80-5.20 [facility] Comment on above: Performed By: #### 8 9579-7, 01730-2, 5643-2, 37129-5, LIVR, 3040-3, CBCA, BMP #### [facility] ([id number]) [address] [place] [address] 29565 WBC (Bld) [#/Vol] 9.8 10*3/uL Normal 4.0-11.0 [facility] Comment on above: Performed By: #### 8 9579-7, 30179-8, 5643-2, 67459-4, LIVR, 3040-3, CBCA, BMP #### [facility] ([id number]) [address] [place] [address] 74530 ETHANOLon 06-15-2024 Ethanol [Mass/Vol] mg/dL Normal 0.00-0.08 [facility] Comment on above: Result Comment: This report is intended for use in clinical monitoring or management of patients. Performed By: #### 8 9579-7, 48675-7, 5643-2, 81689-5, LIVR, 3040-3, CBCA, BMP #### [facility] ([id number]) [address] [place] [address] 85030 LIPASEon 06-15-2024 Lipase [Catalytic activity/Vol] 83 U/L High 17-40 [facility] Comment on above: Performed By: #### 8 9579-7, 81863-4, 5643-2, 23274-8, LIVR, 3040-3, CBCA, BMP #### [facility] ([id number]) [address] [place] [address] 73246 LIVER PANELon 06-15-2024 Albumin [Mass/Vol] 4.2 g/dL Normal 3.2-5.3 [facility] Comment on above: Performed By: #### 8 9579-7, 88589-4, 5643-2, 01533-7, LIVR, 3040-3, CBCA, BMP #### [facility] ([id number]) [address] [place] [address] [place] [address] ALP [Catalytic activity/Vol] 106 U/L Normal 39-130 [facility] Comment on above: Performed By: #### 8 9579-7, 36346-2, 5643-2, 35917-4, LIVR, 3040-3, CBCA, BMP #### [facility] ([id number]) [address] [place] [address] 26871 ALT [Catalytic activity/Vol] 12 U/L Normal 0-31 [facility] Comment on above: Performed By: #### 8 9579-7, 80042-7, 5643-2, 03717-9, LIVR, 3040-3, CBCA, BMP #### [facility] ([id number]) [address] [place] [address] 99828 AST [Catalytic activity/Vol] 18 U/L Normal 0-41 [facility] Comment on above: Performed By: #### 8 9579-7, 49290-3, 5643-2, 18444-7, LIVR, 3040-3, CBCA, BMP #### [facility] ([id number]) [address] [place] [address] 91541 Bilirubin [Mass/Vol] 0.3 mg/dL Normal 0.3-1.2 [facility] Comment on above: Performed By: #### 8 9579-7, 34644-2, 5643-2, 84504-5, LIVR, 3040-3, CBCA, BMP #### [facility] ([id number]) [address] [place] [address] 97667 Bilirubin.indirect [Mass/Vol] mg/dL Normal 0.0-0.4 [facility] Comment on above: Performed By: #### 8 9579-7, 70426-2, 5643-2, 16848-7, LIVR, 3040-3, CBCA, BMP #### [facility] ([id number]) [address] [place] [address] 62557 Protein [Mass/Vol] 7.0 g/dL Normal 6.0-8.0 [facility] Comment on above: Performed By: #### 8 9579-7, 12399-8, 5643-2, 29624-2, LIVR, 3040-3, CBCA, BMP #### [facility] ([id number]) [address] [place] [address] 30216 Lactate (P richard) [Moles/Vol]o n 06-15-2024 LACTATE W/REFLEX 1.1 mmol/L Normal 0.4-2.0 [facility] Comment on above: Result Comment: Result did not trigger repeat Lactate, re-order if needed. Performed By: #### 8 9579-7, 08949-0, 5643-2, 81308-7, LIVR, 3040-3, CBCA, BMP #### [facility] ([id number]) [address] [place] [address] 19214 MAGNESIUMon 06-15-2024 Magnesium [Mass/Vol] 2.1 mg/dL Normal 1.8-2.6 [facility] Comment on above: Performed By: #### 8 9579-7, 44396-5, 5643-2, 57898-7, LIVR, 3040-3, CBCA, BMP #### [facility] ([id number]) [address] [place] [address] 23489 CBC AND AUTO DIFFon 05-31- 25 ABSOLUTE BASOPHIL 0.1 X10E9/L Normal 0.0-0.2 [facility] Comment on above: Performed By: #### 8 9579-7, 18416-5, 5643-2, 42824-8, LIVR, 3040-3, CBCA, BMP #### [facility] ([id number]) [address] [place] [address] 21591 ABSOLUTE NEUTROPHIL 7.2 X10E9/L High 1.5-6.6 [facility] Comment on above: Performed By: #### 8 9579-7, 19706-3, 5643-2, 48139-4, LIVR, 3040-3, CBCA, BMP #### [facility] ([id number]) [address] [place] [address] 98584 Basophils/100 WBC (Bld) 1.3 % Normal [facility] Comment on above: Performed By: #### 8 9579-7, 82876-6, 5643-2, 09114-3, LIVR, 3040-3, CBCA, BMP #### [facility] ([id number]) [address] [place] [address] 61977 Eosinophils (Bld) [#/Vol] 0.1 10*3/uL Normal 0.0-0.4 [facility] Comment on above: Performed By: #### 8 9579-7, 48412-4, 5643-2, 11169-7, LIVR, 3040-3, CBCA, BMP #### [facility] ([id number]) [address] [place] [address] 10845 Eosinophils/100 WBC (Bld) 0.9 % Normal [facility] Comment on above: Performed By: #### 8 9579-7, 90509-4, 5643-2, 38908-2, LIVR, 3040-3, CBCA, BMP #### [facility] ([id number]) [address] [place] [address] 68320 Erythrocyte distribution width (RBC) [Ratio] 13.1 % Normal 11.5-15.0 [facility] Comment on above: Performed By: #### 8 9579-7, 38898-0, 5643-2, 80240-7, LIVR, 3040-3, CBCA, BMP #### [facility] ([id number]) [address] [place] [address] 19319 Hematocrit (Bld) [Volume fraction] 40.2 % Normal 35-47 [facility] Comment on above: Performed By: #### 8 9579-7, 05988-9, 5643-2, 38947-4, LIVR, 3040-3, CBCA, BMP #### [facility] ([id number]) [address] [place] [address] 50612 Hemoglobin (Bld) [Mass/Vol] 14.0 g/dL Normal 11.7-15.5 [facility] Comment on above: Performed By: #### 8 9579-7, 63719-5, 5643-2, 98882-7, LIVR, 3040-3, CBCA, BMP #### [facility] ([id number]) [address] [place] [address] 95997 Lymphocytes (Bld) [#/Vol] 2.7 10*3/uL Normal 1.0-3.5 [facility] Comment on above: Performed By: #### 8 9579-7, 82733-9, 5643-2, 03324-7, LIVR, 3040-3, CBCA, BMP #### [facility] ([id number]) [address] [place] [address] 48504 Lymphocytes/100 WBC (Bld) 24.0 % Normal [facility] Comment on above: Performed By: #### 8 9579-7, 22113-1, 5643-2, 32739-9, LIVR, 3040-3, CBCA, BMP #### [facility] ([id number]) [address] [place] [address] 03578 MCH (RBC) [Entitic mass] 34.0 pg Normal 27-34 [facility] Comment on above: Performed By: #### 8 9579-7, 00471-5, 5643-2, 50342-6, LIVR, 3040-3, CBCA, BMP #### [facility] ([id number]) [address] [place] [address] [place] [address] MCHC (RBC) [Mass/Vol] 34.7 g/dL Normal 32-36 [facility] Comment on above: Performed By: #### 8 9579-7, 30430-7, 5643-2, 66593-7, LIVR, 3040-3, CBCA, BMP #### [facility] ([id number]) [address] [place] [address] 20445 MCV (RBC) [Entitic vol] 98 fL Normal 80-100 [facility] Comment on above: Performed By: #### 8 9579-7, 81831-6, 5643-2, 26108-1, LIVR, 3040-3, CBCA, BMP #### [facility] ([id number]) [address] [place] [address] 25059 Monocytes (Bld) [#/Vol] 1.1 10*3/uL High 0-0.9 [facility] Comment on above: Performed By: #### 8 9579-7, 38689-4, 5643-2, 43689-3, LIVR, 3040-3, CBCA, BMP #### [facility] ([id number]) [address] [place] [address] 23819 Monocytes/100 WBC (Bld) 9.6 % Normal [facility] Comment on above: Performed By: #### 8 9579-7, 27847-8, 5643-2, 09451-8, LIVR, 3040-3, CBCA, BMP #### [facility] ([id number]) [address] [place] [address] 33304 Neutrophils/100 WBC (Bld) 64.2 % Normal [facility] Comment on above: Performed By: #### 8 9579-7, 96818-6, 5643-2, 51554-7, LIVR, 3040-3, CBCA, BMP #### [facility] ([id number]) [address] [place] [address] 39879 Platelet mean volume (Bld) [Entitic vol] 7.8 fL Normal 7-12 [facility] Comment on above: Performed By: #### 8 9579-7, 36628-1, 5643-2, 33737-0, LIVR, 3040-3, CBCA, BMP #### [facility] ([id number]) [address] [place] [address] 90697 Platelets (Bld) [#/Vol] 302 10*3/uL Normal 150-450 [facility] Comment on above: Performed By: #### 8 9579-7, 52492-3, 5643-2, 75058-9, LIVR, 3040-3, CBCA, BMP #### [facility] ([id number]) [address] [place] [address] 09164 RBC COUNT 4.11 X10E12/L Normal 3.80-5.20 [facility] Comment on above: Performed By: #### 8 9579-7, 50152-2, 5643-2, 33366-1, LIVR, 3040-3, CBCA, BMP #### [facility] ([id number]) [address] [place] [address] 36262 WBC (Bld) [#/Vol] 11.2 10*3/uL High 4.0-11.0 [facility] Comment on above: Performed By: #### 8 9579-7, 35329-9, 5643-2, 33848-4, LIVR, 3040-3, CBCA, BMP #### [facility] ([id number]) [address] [place] [address] 20864 COMPREHENSIVE METABOLIC PANE Nimesh 05-31-2024 Albumin [Mass/Vol] 4.0 g/dL Normal 3.2-5.3 [facility] Comment on above: Performed By: #### 8 9579-7, 76685-7, 5643-2, 27950-0, LIVR, 3040-3, CBCA, BMP #### [facility] ([id number]) [address] [place] [address] 86871 ALP [Catalytic activity/Vol] 97 U/L Normal 39-130 [facility] Comment on above: Performed By: #### 8 9579-7, 54237-6, 5643-2, 52407-3, LIVR, 3040-3, CBCA, BMP #### [facility] ([id number]) [address] [place] [address] 97472 ALT [Catalytic activity/Vol] 12 U/L Normal 0-31 [facility] Comment on above: Performed By: #### 8 9579-7, 09719-5, 5643-2, 79399-1, LIVR, 3040-3, CBCA, BMP #### [facility] ([id number]) [address] [place] [address] 15781 Anion gap [Moles/Vol] 7 mmol/L Normal 5-15 [facility] Comment on above: Performed By: #### 8 9579-7, 02923-9, 5643-2, 10280-2, LIVR, 3040-3, CBCA, BMP #### [facility] ([id number]) [address] [place] [address] 60720 AST [Catalytic activity/Vol] 19 U/L Normal 0-41 [facility] Comment on above: Performed By: #### 8 9579-7, 83004-9, 5643-2, 52019-1, LIVR, 3040-3, CBCA, BMP #### [facility] ([id number]) [address] [place] [address] 83890 Bilirubin [Mass/Vol] 0.4 mg/dL Normal 0.3-1.2 [facility] Comment on above: Performed By: #### 8 9579-7, 23017-0, 5643-2, 35025-5, LIVR, 3040-3, CBCA, BMP #### [facility] ([id number]) [address] [place] [address] 67284 Calcium [Mass/Vol] 9.3 mg/dL Normal 8.5-10.5 [facility] Comment on above: Performed By: #### 8 9579-7, 18518-3, 5643-2, 71502-1, LIVR, 3040-3, CBCA, BMP #### [facility] ([id number]) [address] [place] [address] 13944 Chloride [Moles/Vol] 106 mmol/L Normal 98-109 [facility] Comment on above: Performed By: #### 8 9579-7, 06652-9, 5643-2, 18282-2, LIVR, 3040-3, CBCA, BMP #### [facility] ([id number]) [address] [place] [address] 64929 CO2 [Moles/Vol] 23 mmol/L Normal 22-32 [facility] Comment on above: Performed By: #### 8 9579-7, 96514-3, 5643-2, 63422-3, LIVR, 3040-3, CBCA, BMP #### [facility] ([id number]) [address] [place] [address] 99061 Creatinine [Mass/Vol] 0.60 mg/dL Normal 0.40-1.00 [facility] Comment on above: Result Comment: METH OD TRACEABLE TO IDMS STANDARD Performed By: #### 8 9579-7, 09805-7, 5643-2, 44854-4, LIVR, 3040-3, CBCA, BMP #### [facility] ([id number]) [address] [place] [address] 23612 eGFR (CKD-EPI) NON-RACE DEPENDENT >90 Normal >59 [facility] Comment on above: Result Comment: Reported eGFR is based on the CKD-EPI 2020 equation that does not use a race coefficient. Performed By: #### 8 9579-7, 69557-2, 5643-2, 16906-6, LIVR, 3040-3, CBCA, BMP #### [facility] ([id number]) [address] [place] [address] 60195 Glucose [Mass/Vol] 101 mg/dL High 65-99 [facility] Comment on above: Performed By: #### 8 9579-7, 05158-7, 5643-2, 65661-6, LIVR, 3040-3, CBCA, BMP #### [facility] ([id number]) [address] [place] [address] 21328 Potassium [Moles/Vol] 3.6 mmol/L Normal 3.5-5.0 [facility] Comment on above: Performed By: #### 8 9579-7, 07246-6, 5643-2, 97642-8, LIVR, 3040-3, CBCA, BMP #### [facility] ([id number]) [address] [place] [address] 21566 Protein [Mass/Vol] 7.2 g/dL Normal 6.0-8.0 [facility] Comment on above: Performed By: #### 8 9579-7, 55591-9, 5643-2, 42103-2, LIVR, 3040-3, CBCA, BMP #### [facility] ([id number]) [address] [place] [address] 73303 Sodium [Moles/Vol] 136 mmol/L Normal 134-146 [facility] Comment on above: Performed By: #### 8 9579-7, 95998-6, 5643-2, 23406-6, LIVR, 3040-3, CBCA, BMP #### [facility] ([id number]) [address] [place] [address] Urea nitrogen [Mass/Vol] 11 mg/dL Normal 5-23 [facility] Comment on above: Performed By: #### 8 9579-7, 86587-4, 5643-2, 73257-5, LIVR, 3040-3, CBCA, BMP #### [facility] ([id number]) [address] [place] [address] LIPASEon 05-31-2024 Lipase [Catalytic activity/Vol] 104 U/L High 17-40 [facility] Comment on above: Performed By: #### 8 9579-7, 24168-4, 5643-2, 96491-9, LIVR, 3040-3, CBCA, BMP #### [facility] ([id number]) [address] [place] [address] Basic Metabolic Panelon 03-11 Anion gap [Moles/Vol] 8 mmol/L Low 9 - 16 mmol/L [facility] Calcium [Mass/Vol] 8.3 mg/dL Low 8.6 - 10. 4 mg/dL [facility] Chloride [Moles/Vol] 108 mmol/L High 98 - 10 7 mmol/L [facility] CO2 [Moles/Vol] 23 mmol/L 20 - 31 mmol/L [facility] Creatinine [Mass/Vol] 0.6 mg/dL 0.50 - 0.90 mg/dL [facility] Est, Glom Erict Rate - PINF [facility] Comment on above: These results [...] [Mass/Vol] 83 mg/dL 74 - 99 mg/dL [employer] Potassium [Moles/Vol] 4.0 mmol/L 3.7 - 5.3 mmol/L [facility] Sodium [Moles/Vol] 139 mmol/L 136 - 145 mmol/L [facility] Urea nitrogen [Mass/Vol] 10 mg/dL 6 - 20 mg/dL [facility] Urea nitrogen/Creatinine [Mass ratio] 17 mg/mg 9 - 20 [facility] Basic Metabolic Profon 04-07 Anion gap [Moles/Vol] 8 mmol/L Low 9-16 [facility] Comment on above: Performed By: #### B MP, LIVP, LIP #### [facility] [address] [place], [place] [id number] Char [employer] Operator: Ion Jasso MD BUN/CRE Ratio 17 Normal 9-20 [facility] Comment on above: Performed By: #### B MP, LIVP, LIP #### [facility] [address] [place], [place] [id number] [employer] Operator: Ion Jasso MD Calcium [Mass/Vol] 8.3 mg/dL Low 8.6-10.4 [facility] Comment on above: Performed By: #### B MP, LIVP, LIP #### [facility] [address] [place], [place] 0816483 Char Belt Operator: Ion Jasso MD Chloride [Moles/Vol] 108 mmol/L High 98-107 [facility] Comment on above: Performed By: #### B MP LIVP, LIP #### [facility] [address] [place], [place] 1975[address]83 Char [employer] Operator: Ion Jasso MD CO2 [Moles/Vol] 23 mmol/L Normal 20-31 [facility] Comment on above: Performed By: #### B MP, LIVP, LIP #### [facility] [address] [place] [address] Char Belt Operator: Ion Jasso MD Creatinine [Mass/Vol] 0.6 mg/dL Normal 0.50-0.90 [facility] Comment on above: Performed By: #### B MP, LIVP, LIP #### [facility] [address] [place] [address] Char Belt Operator: Ion Jasso MD GFR/1.73 sq M.predicted among non-blacks MDRD (S/P/Bld) [Vol rate/Area] mL/min/{1.73_m2} Normal >60 [facility] Comment on above: Result Comment: These [...] affects renal tubular secretion. Performed By: #### B MP, LIVP, LIP #### [facility] [address] [place] [address] [place] [address] Char Belt Operator: Ion Jasso MD Glucose [Mass/Vol] 83 mg/dL Normal 74-99 [facility] Comment on above: Performed By: #### B MP LIVP, LIP #### [facility] [address] [place] [address] Char Belt Operator: Ion Jasso MD Potassium [Moles/Vol] 4.0 mmol/L Normal 3.7-5.3 [facility] Comment on above: Performed By: #### B MP, LIVP, LIP #### [facility] [address] [place] [address] Char Belt Operator: Ion Jasso MD Sodium [Moles/Vol] 139 mmol/L Normal 136-145 [facility] Comment on above: Performed By: #### B MP, LIVP, LIP #### [facility] [address] [place] [address] Char Belt Operator: Ion Jasso MD Urea nitrogen [Mass/Vol] 10 mg/dL Normal 6-20 [facility] Comment on above: Performed By: #### B MP, LIVP, LIP #### [facility] [address] [place] [address] Char [employer] Operator: Ion Jasso MD CBC with Auto Differentialon 04-07-2024 Basophils (Bld) [#/Vol] 0.08 10*3/uL [facility] Basophils/100 WBC (Bld) 1 % 0 - 2 % [facility] Eosinophils (Bld) [#/Vol] 0.13 10*3/uL [facility] Eosinophils/100 WBC (Bld) 1 % 1 - 4 % [facility] Erythrocyte distribution width (RBC) [Ratio] 13.1 % 11.8 - 14.4 % [facility] Hematocrit (Bld) [Volume fraction] 40.1 % 36.3 - 47.1 % [facility] Hemoglobin (Bld) [Mass/Vol] 14.0 g/dL 11.9 - 15.1 g/dL [facility] Immature granulocytes (Bld) [#/Vol] 0.03 10*3/uL [facility] Immature granulocytes/100 WBC (Bld) 0 % 0 [facility] Interpretation and review of laboratory results Abnormal [facility] Lymphocytes/100 WBC (Bld) 26 % 24 - 43 % [facility] Lymphocytes/100 WBC (Bld) 2.39 % [facility] MCH (RBC) [Entitic mass] 33.9 pg High 25.2 - 33.5 pg [facility] MCHC (RBC) [Mass/Vol] 34.9 g/dL High 28.4 - 34.8 g/dL [facility] MCV (RBC) [Entitic vol] 97.1 fL 82.6 - 102.9 fL [facility] Monocytes/100 WBC (Bld) 8 % 3 - 12 % [facility] Monocytes/100 WBC (Bld) 0.76 % [facility] Neutrophils/100 WBC (Bld) 64 % 36 - 65 % [facility] Nucleated RBC/100 WBC (Bld) [Ratio] 0.0 % 0.0 per 100 WBC [facility] Platelet mean volume (Bld) [Entitic vol] 10.6 fL 8.1 - 13.5 fL [facility] Platelets (Bld) [#/Vol] 267 10*3/uL [facility] RBC (Bld) [#/Vol] 4.13 10*6/uL 3.95 - 5.11 m/uL [facility] Segmented neutrophils/100 WBC (Bld) 5.87 % [facility] WBC other (Bld) [#/Vol] 9.3 [facility] CBC with Diffon 04-07-2024 Abs. Basophil 0.08 k/uL Normal 0.00-0.20 [facility] Comment on above: Performed By: #### B LIZY LIVP, LIP #### [facility] [address] [place] [address] Dr. [place] [phone] [employer] Operator: Ion Jasso MD Abs.Imm.Granulocyte 0.03 k/uL Normal 0.00-0.30 [facility] Comment on above: Performed By: #### B LIZY LIVP, LIP #### [facility] [address] [place] [address] Dr. [place] [phone] Char [employer] Operator: Ion Jasso MD Abs.Neutrophil (Seg) 5.87 k/uL Normal 1.50-8.10 [facility] Comment on above: Performed By: #### B LIZY LIVP, LIP #### [facility] [address] [place] [address] Dr. [place], [place] [address] Char Belt Operator: Ion Jasso MD Basophils/100 WBC (Bld) 1 % Normal 0-2 [facility] Comment on above: Performed By: #### B LIZY LIVP, LIP #### [facility] [address] [place] [address] Dr. [place] [phone] [employer] Operator: Ion Jasso MD Eosinophils (Bld) [#/Vol] 0.13 10*3/uL Normal 0.00-0.44 [facility] Comment on above: Performed By: #### B MP, LIVP, LIP #### [address] [place], [facility] Char [employer] Operator: Ion Jasso MD Eosinophils/100 WBC (Bld) 1 % Normal 1-4 [facility] Comment on above: Performed By: #### B MP, LIVP, LIP #### [address] [place], [place] [address] [employer] Operator: Ion Jasso MD Erythrocyte distribution width (RBC) [Ratio] 13.1 % Normal 11.8-14.4 [facility] Comment on above: Performed By: #### B MP, LIVP, LIP #### [address] [place] [phone] Char [employer] Operator: Ion Jasso MD Hematocrit (Bld) [Volume fraction] 40.1 % Normal 36.3-47.1 [facility] Comment on above: Performed By: #### B MP, LIVP, LIP #### [address] [place], [facility] Char Belt Operator: Ion Jasso MD Hemoglobin (Bld) [Mass/Vol] 14.0 g/dL Normal 11.9-15.1 [facility] Comment on above: Performed By: #### B MP, LIVP, LIP #### [address] [place], [place] [address] Char [employer] Operator: Ion Jasso MD Immature granulocytes/100 WBC (Bld) 0 % Normal 0 [facility] Comment on above: Performed By: #### B MP, LIVP, LIP #### [address] [place], [facility] Char Belt Operator: Ion Jasso MD Lymphocytes (Bld) [#/Vol] 2.39 10*3/uL Normal 1.10-3.70 [facility] Comment on above: Performed By: #### B MP, LIVP, LIP #### [facility] [address] [place], [facility] Char Belt Operator: Ion Jasso MD Lymphocytes/100 WBC (Bld) 26 % Normal 24-43 [facility] Comment on above: Performed By: #### B MP, LIVP, LIP #### [facility] [address] [place], [facility] Char Belt Operator: Ion Jasso MD MCH (RBC) [Entitic mass] 33.9 pg High 25.2-33.5 [facility] Comment on above: Performed By: #### B MP, LIVP, LIP #### [address] [place], [facility] Char Belt Operator: Ion Jasso MD MCHC (RBC) [Mass/Vol] 34.9 g/dL High 28.4-34.8 [facility] Comment on above: Performed By: #### B MP, LIVP, LIP #### [address] [place], [facility] Char Belt Operator: Ion Jasso MD MCV (RBC) [Entitic vol] 97.1 fL Normal 82.6-102.9 [facility] Comment on above: Performed By: #### B MP, LIVP, LIP #### [address] [place], [place] [address] Char Belt Operator: Ion Jasso MD Monocytes (Bld) [#/Vol] 0.76 10*3/uL Normal 0.10-1.20 [facility] Comment on above: Performed By: #### B MP, LIVP, LIP #### [facility] [address] [place] [address] Char Belt Operator: Ion Jasso MD Monocytes/100 WBC (Bld) 8 % Normal 3-12 [facility] Comment on above: Performed By: #### B MP, LIVP, LIP #### [facility] [address] [place], [place] [phone] Char Belt Operator: Ion Jasso MD Neutrophil (Seg) 64 % Normal 36-65 [facility] Comment on above: Performed By: #### B MP, LIVP, LIP #### [facility] [address] [place], [place] [phone] Char Belt Operator: Ion Jasso MD NRBC Automated 0.0 per 100 WBC Normal 0.0 [facility] Comment on above: Performed By: #### B MP, LIVP, LIP #### [facility] [address] [place], [place] [phone] Char Belt Operator: Ion Jasso MD Platelet mean volume (Bld) [Entitic vol] 10.6 fL Normal 8.1-13.5 [facility] Comment on above: Performed By: #### B MP, LIVP, LIP #### [address] [place], [place] [phone] Char Belt Operator: Ion Jasso MD Platelets (Bld) [#/Vol] 267 10*3/uL Normal 138-453 [facility] Comment on above: Performed By: #### B MP, LIVP, LIP #### [address] [place], [place] [phone] Char Belt Operator: Ion Jasso MD RBC (Bld) [#/Vol] 4.13 10*6/uL Normal 3.95-5.11 [facility] Comment on above: Performed By: #### B MP, LIVP, LIP #### [facility] [address] [place], [place] [id number] Char Belt Operator: Ion Jasso MD WBC (Bld) [#/Vol] 9.3 10*3/uL Normal 3.5-11.3 [facility] Comment on above: Performed By: #### B MP, LIVP, LIP #### [address] [place] [address] Char Belt Operator: Ion Jasso MD CT ABDOMEN PELVIS W [...] duct. 3. Status post cholecystectomy. Interpreted by: Sarah Tran MD Signed by: Sarah Tran MD 04/07/24 Final result Normal [facility] CT Abdomen and Pelvis W cont rast Roxana 04-07-2024 1. No acute intra-abdominal or pelvic abnormalities are noted. 2. Stable mild dilatation of the extrahepatic biliary tree and pancreatic duct. 3. Status post cholecystectomy. [facility] RIS CONSOLIDATED EXAMINATION: CT OF THE [...] lytic or blastic osseous lesions are identified. PN RIS CONSOLIDATED Sarah Tran MD - 04/07/2024 EXAMINATION: CT OF [...] and pancreatic duct. 3. Status post cholecystectomy. [facility] Radiology Study observation (narrative) [facility] CT Abdomen and Pelvis W cont rast IVOrdered By: Sarah Tran on 04-07-2024 [facility] Work Phone: Hepatic Function Panelon Albumin [Mass/Vol] 3.9 g/dL 3.5 - 5.2 g/dL [facility] Albumin/Globulin [Mass ratio] 1.7 {ratio} 1.0 - 2.5 [facility] ALP [Catalytic activity/Vol] 119 U/L High 35 - 104 U/L [facility] ALT [Catalytic activity/Vol] 11 U/L 10 - 35 U/L [facility] AST [Catalytic activity/Vol] 30 U/L 10 - 35 U/L [facility] Bilirubin [Mass/Vol] mg/dL 0.00 - 1.20 mg/dL [facility] Bilirubin.direct [Mass/Vol] mg/dL 0.00 - 0.30 mg/dL [facility] Bilirubin.indirect [Mass/Vol] Can not be calculated 0.0 - 1.0 mg/dL [facility] Protein [Mass/Vol] 6.1 g/dL Low 6.6 - 8.7 g/dL [facility] Lipaseon 04-07-2024 Lipase [Catalytic activity/Vol] 266 U/L High 13 - 60 U/L [facility] Lipase [Catalytic activity/Vol] 266 U/L High 13-60 [facility] Comment on above: Performed By: #### B MP, LIVP, LIP #### [facility] [address] [place] [address] Char [employer] Operator: Ion Jasso MD Liver Profileon 04-07-2024 Albumin [Mass/Vol] 3.9 g/dL Normal 3.5-5.2 [facility] Comment on above: Performed By: #### B MP, LIVP, LIP #### [facility] [address] [place], [place] [phone] Char Belt Operator: Ion Jasso MD Albumin/Glob Ratio 1.7 Normal 1.0-2.5 [facility] Comment on above: Performed By: #### B MP, LIVP, LIP #### [facility] [address] [place], [place] [phone] Char Belt Operator: Ion Jasso MD Alkaline Phos 119 U/L High 35-104 [facility] Comment on above: Performed By: #### B MP, LIVP, LIP #### [facility] [address] [place], [place] 3065383 Char Belt Operator: Ion Jasso MD ALT [Catalytic activity/Vol] 11 U/L Normal 10-35 [facility] Comment on above: Performed By: #### B MP, LIVP, LIP #### [facility] [address] [place], [place] 5638383 Char Belt Operator: Ion Jasso MD AST [Catalytic activity/Vol] 30 U/L Normal 10-35 [facility] Comment on above: Performed By: #### B MP, LIVP, LIP #### [facility] [address] [place], [place] 7328983 [employer] Operator: Ion Jasso MD Bilirubin [Mass/Vol] mg/dL Normal 0.00-1.20 [facility] Comment on above: Performed By: #### B MP, LIVP, LIP #### [facility] [address] [place], [place] [phone] Char Belt Operator: Ion Jasso MD Bilirubin, Indirect Can not be calculated Normal 0.0-1 .0 [facility] Comment on above: Performed By: #### B MP, LIVP, LIP #### [facility] [address] [place] [address] Char Belt Operator: Ion Jasso MD Bilirubin.indirect [Mass/Vol] mg/dL Normal 0.00-0.30 [facility] Comment on above: Performed By: #### B MP, LIVP, LIP #### [facility] [address] [place] [address] Char Belt Operator: Ion Jasso MD Protein [Mass/Vol] 6.1 g/dL Low 6.6-8.7 [facility] Comment on above: Performed By: #### B MP, LIVP, LIP #### [facility] [address] [place] [address] Char Belt Operator: Ion Jasso MD No Panel Informationon 04-07 Interpretation and review of laboratory results Abnormal [facility] Specimen Rejectionon 025 Reason for rejection Unable to perform testing: Specimen hemolyzed. Normal [facility] Comment on above: Performed By: #### B MP, LIVP, LIP #### [facility] [address] [place], [place] [phone] Char Belt Operator: Ion Jasso MD Source of sample .BLOOD Normal [facility] Comment on above: Performed By: #### B MP, LIVP, LIP #### [facility] [address] [place], [place] 3858183 Char Belt Operator: Ion Jasso MD Test ordered LIP,LIVP, BMP Normal [facility] Comment on above: Performed By: #### B MP, LIVP, LIP #### [facility] [address] [place] [address] Char Belt Operator: Ion Jasso MD Urinalysison 04-07-2024 Bilirubin Ql (U) Negative NEGATIVE [facility] Clarity (U) Clear Clear [facility] Color (U) Yellow Yellow [facility] Glucose Test strip (U) [Mass/Vol] Negative NEGATIVE mg/dL [facility] Hemoglobin Auto test strip Ql (U) Negative NEGATIVE [facility] Ketones (U) [Mass/Vol] Negative NEGAT MATTHIAS mg/dL [facility] Leukocyte esterase Test strip Ql (U) Negative NEGATIVE [facility] Nitrite Ql (U) Negative NEGATIVE [facility] pH (U) 5.5 [pH] 5.0 - 9.0 [facility] Protein (U) [Mass/Vol] Negative NEGAT MATTHIAS mg/dL [facility] Specific gravity (U) [Rel density] 1.010 1.010 - 1.020 [facility] Urobilinogen Qn (U) Normal 0.0 - 1. 0 EU/dL [facility] Urinalysis, Routineon 2024 Bilirubin, SemiQt,Ur Negative Normal NEG [facility] Comment on above: Performed By: #### B MP, LIVP, LIP #### [facility] [address] [place], [place] [phone] Char Belt Operator: Ion Jasso MD Blood, Urine Negative Normal NEG [facility] Comment on above: Performed By: #### B MP, LIVP, LIP #### [facility] [address] [place], [place] 4019983 Char Belt Operator: Ion Jasso MD Clarity (U) Clear Normal CLEAR [facility] Comment on above: Performed By: #### B MP, LIVP, LIP #### [facility] [address] [place], [place] 0388383 Char Belt Operator: Ion Jasso MD Color (U) Yellow Normal YEL [facility] Comment on above: Performed By: #### B MP, LIVP, LIP #### [facility] [address] [place], [place] 8992183 Char Belt Operator: Ion Jasso MD Glucose Ql (U) Negative Normal NEG [facility] Comment on above: Performed By: #### B MP, LIVP, LIP #### [facility] [address] [place], [place] 5083683 Char Belt Operator: Ion Jasso MD Ketones Ql (U) Negative Normal NEG [facility] Comment on above: Performed By: #### B MP, LIVP, LIP #### [facility] [address] [place], [place] 0627183 Char Belt Operator: Ion Jasso MD Leukocyte esterase Test strip Ql (U) Negative Normal NEG [facility] Comment on above: Performed By: #### B MP, LIVP, LIP #### [address] [place], [place] 3199883 Char Belt Operator: Ion Jasso MD Nitrite,Ur Negative Normal NEG [facility] Comment on above: Performed By: #### B MP, LIVP, LIP #### [facility] [address] [place] [address] [place] [address] Char Belt Operator: Ion Jasso MD PH,Ur 5.5 Normal 5.0-9.0 [facility] Comment on above: Performed By: #### B MP, LIVP, LIP #### [address] [place] [address] Char Belt Operator: Ion Jasso MD Protein Ql (U) Negative Normal NEG [facility] Comment on above: Performed By: #### B MP, LIVP, LIP #### [facility] [address] [place] [address] Char Belt Operator: Ion Jasso MD Spec. [place],Ur 1.010 Normal 1.010-1.02 0 [facility] Comment on above: Performed By: #### B MP, LIVP, LIP #### [facility] [address] [place], [place] 4201783 Char Belt Operator: Ion Jasso MD Urobilinogen,Ur Normal Normal 0.0-1.0 [facility] Comment on above: Performed By: #### B MP, LIVP, LIP #### [facility] [address] [place] [address] Char Belt Operator: Ion Jasso MD CBC AND AUTO DIFFon 03-18-19 25 ABSOLUTE BASOPHIL 0.1 X10E9/L Normal 0.0-0.2 [facility] Comment on above: Performed By: #### 8 9579-7, 20637-4, 5643-2, 56931-0, LIVR, 3040-3, CBCA, BMP #### [facility] ([id number]) [address] [place] [address] ABSOLUTE NEUTROPHIL 7.7 X10E9/L High 1.5-6.6 [facility] Comment on above: Performed By: #### 8 9579-7, 94083-7, 5643-2, 79090-5, LIVR, 3040-3, CBCA, BMP #### [facility] ([id number]) [address] [place] [address] Basophils/100 WBC (Bld) 0.8 % Normal [facility] Comment on above: Performed By: #### 8 9579-7, 44718-9, 5643-2, 23849-4, LIVR, 3040-3, CBCA, BMP #### [facility] ([id number]) [address] [place] [address]874 Eosinophils (Bld) [#/Vol] 0.1 10*3/uL Normal 0.0-0.4 [facility] Comment on above: Performed By: #### 8 9579-7, 06259-7, 5643-2, 08879-3, LIVR, 3040-3, CBCA, BMP #### [facility] ([id number]) [address] [place] [address]018 Eosinophils/100 WBC (Bld) 0.5 % Normal [facility] Comment on above: Performed By: #### 8 9579-7, 30116-4, 5643-2, 47099-7, LIVR, 3040-3, CBCA, BMP #### [facility] ([id number]) [address] [place] [address] Erythrocyte distribution width (RBC) [Ratio] 13.5 % Normal 11.5-15.0 [facility] Comment on above: Performed By: #### 8 9579-7, 41349-1, 5643-2, 38239-1, LIVR, 3040-3, CBCA, BMP #### [facility] ([id number]) [address] [place] [address] 32867 Hematocrit (Bld) [Volume fraction] 48.7 % High 35-47 [facility] Comment on above: Performed By: #### 8 9579-7, 56094-5, 5643-2, 11914-2, LIVR, 3040-3, CBCA, BMP #### [facility] ([id number]) [address] [place] [address] 74699 Hemoglobin (Bld) [Mass/Vol] 16.5 g/dL High 11.7-15.5 [facility] Comment on above: Performed By: #### 8 9579-7, 83037-7, 5643-2, 18979-8, LIVR, 3040-3, CBCA, BMP #### [facility] ([id number]) [address] [place] [address] 83794 Lymphocytes (Bld) [#/Vol] 2.0 10*3/uL Normal 1.0-3.5 [facility] Comment on above: Performed By: #### 8 9579-7, 10253-3, 5643-2, 61792-4, LIVR, 3040-3, CBCA, BMP #### [facility] ([id number]) [address] [place] [address]111 Lymphocytes/100 WBC (Bld) 19.0 % Normal [facility] Comment on above: Performed By: #### 8 9579-7, 60630-0, 5643-2, 51940-4, LIVR, 3040-3, CBCA, BMP #### [facility] ([id number]) [address] [place] [address] 16447 MCH (RBC) [Entitic mass] 33.5 pg Normal 27-34 [facility] Comment on above: Performed By: #### 8 9579-7, 88787-3, 5643-2, 79554-3, LIVR, 3040-3, CBCA, BMP #### [facility] ([id number]) [address] [place] [address] 22286 MCHC (RBC) [Mass/Vol] 33.9 g/dL Normal 32-36 [facility] Comment on above: Performed By: #### 8 9579-7, 68480-2, 5643-2, 61158-0, LIVR, 3040-3, CBCA, BMP #### [facility] [facility] ([id number]) [address] [place] [address] 88978 MCV (RBC) [Entitic vol] 99 fL Normal 80-100 [facility] Comment on above: Performed By: #### 8 9579-7, 78826-5, 5643-2, 11935-1, LIVR, 3040-3, CBCA, BMP #### [facility] ([id number]) [address] [place] [address] 00981 Monocytes (Bld) [#/Vol] 0.8 10*3/uL Normal 0-0.9 [facility] Comment on above: Performed By: #### 8 9579-7, 94966-7, 5643-2, 43027-2, LIVR, 3040-3, CBCA, BMP #### [facility] ([id number]) [address] [place] [address] 49741 Monocytes/100 WBC (Bld) 7.4 % Normal [facility] Comment on above: Performed By: #### 8 9579-7, 19900-0, 5643-2, 89957-4, LIVR, 3040-3, CBCA, BMP #### [facility] ([id number]) [address] [place] [address] 37813 Neutrophils/100 WBC (Bld) 72.3 % Normal [facility] Comment on above: Performed By: #### 8 9579-7, 61091-5, 5643-2, 88887-1, LIVR, 3040-3, CBCA, BMP #### [facility] ([id number]) [address] [place] [address] 63087 Platelet mean volume (Bld) [Entitic vol] 8.1 fL Normal 7-12 [facility] Comment on above: Performed By: #### 8 9579-7, 51401-1, 5643-2, 93774-0, LIVR, 3040-3, CBCA, BMP #### [facility] ([id number]) [address] [place] [address] 10446 Platelets (Bld) [#/Vol] 304 10*3/uL Normal 150-450 [facility] Comment on above: Performed By: #### 8 9579-7, 89537-4, 5643-2, 34567-9, LIVR, 3040-3, CBCA, BMP #### [facility] ([id number]) [address] [place] [address] 96686 RBC COUNT 4.92 X10E12/L Normal 3.80-5.20 [facility] Comment on above: Performed By: #### 8 9579-7, 87557-9, 5643-2, 53862-4, LIVR, 3040-3, CBCA, BMP #### [facility] ([id number]) [address] [place] [address] 75964 WBC (Bld) [#/Vol] 10.7 10*3/uL Normal 4.0-11.0 [facility] Comment on above: Performed By: #### 8 9579-7, 52004-3, 5643-2, 46112-9, LIVR, 3040-3, CBCA, BMP #### [facility] ([id number]) [address] [place] [address] 10704 COMPREHENSIVE METABOLIC PANE Nimesh 03-18-2024 Albumin [Mass/Vol] 4.7 g/dL Normal 3.2-5.3 [facility] Comment on above: Performed By: #### 8 9579-7, 24444-2, 5643-2, 74391-3, LIVR, 3040-3, CBCA, BMP #### [facility] ([id number]) [address] [place] [address] 68865 ALP [Catalytic activity/Vol] 153 U/L High 39-130 [facility] Comment on above: Performed By: #### 8 9579-7, 34943-2, 5643-2, 93580-5, LIVR, 3040-3, CBCA, BMP #### [facility] ([id number]) [address] [place] [address] 23768 ALT [Catalytic activity/Vol] 18 U/L Normal 0-31 [facility] Comment on above: Performed By: #### 8 9579-7, 40942-6, 5643-2, 15413-9, LIVR, 3040-3, CBCA, BMP #### [facility] ([id number]) [address] [place] [address] 59706 Anion gap [Moles/Vol] 9 mmol/L Normal 5-15 [facility] Comment on above: Performed By: #### 8 9579-7, 02927-3, 5643-2, 92349-6, LIVR, 3040-3, CBCA, BMP #### [facility] ([id number]) [address] [place] [address] 27950 AST [Catalytic activity/Vol] 26 U/L Normal 0-41 [facility] Comment on above: Performed By: #### 8 9579-7, 70911-7, 5643-2, 34806-1, LIVR, 3040-3, CBCA, BMP #### [facility] ([id number]) [address] [place] [address] 57605 Bilirubin [Mass/Vol] 0.8 mg/dL Normal 0.3-1.2 [facility] Comment on above: Performed By: #### 8 9579-7, 46265-6, 5643-2, 28716-4, LIVR, 3040-3, CBCA, BMP #### [facility] ([id number]) [address] [place] [address] 54197 Calcium [Mass/Vol] 10.9 mg/dL High 8.5-10.5 [facility] Comment on above: Performed By: #### 8 9579-7, 42788-4, 5643-2, 38211-9, LIVR, 3040-3, CBCA, BMP #### [facility] ([id number]) [address] [place] [address] 33565 Chloride [Moles/Vol] 104 mmol/L Normal 98-109 [facility] Comment on above: Performed By: #### 8 9579-7, 47830-2, 5643-2, 69287-2, LIVR, 3040-3, CBCA, BMP #### [facility] ([id number]) [address] [place] [address] 66856 CO2 [Moles/Vol] 27 mmol/L Normal 22-32 [facility] Comment on above: Performed By: #### 8 9579-7, 75750-5, 5643-2, 28058-1, LIVR, 3040-3, CBCA, BMP #### [facility] ([id number]) [address] [place] [address] 06119 Creatinine [Mass/Vol] 0.78 mg/dL Normal 0.40-1.00 [facility] Comment on above: Result Comment: METH OD TRACEABLE TO IDMS STANDARD Performed By: #### 8 9579-7, 06521-3, 5643-2, 26510-7, LIVR, 3040-3, CBCA, BMP #### [facility] ([id number]) [address] [place] [address] 36586 eGFR (CKD-EPI) NON-RACE DEPENDENT >90 Normal >59 [facility] Comment on above: Result Comment: Reported eGFR is based on the CKD-EPI 2020 equation that does not use a race coefficient. Performed By: #### 8 9579-7, 21455-1, 5643-2, 56625-8, LIVR, 3040-3, CBCA, BMP #### [facility] ([id number]) [address] [place] [address] 07233 Glucose [Mass/Vol] 103 mg/dL High 65-99 [facility] Comment on above: Performed By: #### 8 9579-7, 32730-7, 5643-2, 58224-2, LIVR, 3040-3, CBCA, BMP #### [facility] ([id number]) [address] [place] [address] 49766 Potassium [Moles/Vol] 4.5 mmol/L Normal 3.5-5.0 [facility] Comment on above: Performed By: #### 8 9579-7, 97342-2, 5643-2, 41737-7, LIVR, 3040-3, CBCA, BMP #### [facility] ([id number]) [address] [place] [address] 25590 Protein [Mass/Vol] 8.2 g/dL High 6.0-8.0 [facility] Comment on above: Performed By: #### 8 9579-7, 90390-4, 5643-2, 39289-9, LIVR, 3040-3, CBCA, BMP #### [facility] ([id number]) [address] [place] [address] 95805 Sodium [Moles/Vol] 140 mmol/L Normal 134-146 [facility] Comment on above: Performed By: #### 8 9579-7, 40367-5, 5643-2, 76283-1, LIVR, 3040-3, CBCA, BMP #### [facility] ([id number]) [address] [place] [address] 43764 Urea nitrogen [Mass/Vol] 11 mg/dL Normal 5-23 [facility] Comment on above: Performed By: #### 8 9579-7, 82750-3, 5643-2, 49059-6, LIVR, 3040-3, CBCA, BMP #### [facility] ([id number]) [address] [place] [address] ABDOMEN AND PELVIS W CONT on [...] Cano MD on 03/18/2024 3:38 PM Normal [facility] LIPASEon 03-18-2024 Lipase [Catalytic activity/Vol] 73 U/L High 17-40 [facility] Comment on above: Performed By: #### 8 9579-7, 98175-0, 5643-2, 96122-7, LIVR, 3040-3, CBCA, BMP #### [facility] ([id number]) [address] [place] [address], [place] [address] UPPER EUSon 01-19-2024 [facility] Gastroenterology Patient Name: Chioma Rainey Procedure Date: 01/19/2024 9:15 AM Date of : 1970 Admit Type: Outpatient Age: 53 Room: EUS Proc Room 01 Gender: Female Note Status: Finalized Attending MD: Sabrina Dee MD, MPH, [id number] Procedure: Upper EUS Indications: Celiac plexus block [...] o (more content not included)... LAB, [facility] Rad[facility] AND AUTO DIFFon 01-14-20 24 ABSOLUTE BASOPHIL 0.1 X10E9/L Normal 0.0-0.2 [facility] Comment on above: Performed By: #### 8 9579-7, 61789-5, 5643-2, 01403-6, LIVR, 3040-3, CBCA, BMP #### [facility] ([id number]) [address] [place] [address] 42092 ABSOLUTE NEUTROPHIL 6.8 X10E9/L High 1.5-6.6 [facility] Comment on above: Performed By: #### 8 9579-7, 54170-3, 5643-2, 29849-4, LIVR, 3040-3, CBCA, BMP #### [facility] ([id number]) [address] [place] [address] 49902 Basophils/100 WBC (Bld) 0.8 % Normal [facility] Comment on above: Performed By: #### 8 9579-7, 07036-5, 5643-2, 19819-0, LIVR, 3040-3, CBCA, BMP #### [facility] ([id number]) [address] [place] [address] 79245 Eosinophils (Bld) [#/Vol] 0.1 10*3/uL Normal 0.0-0.4 [facility] Comment on above: Performed By: #### 8 9579-7, 83961-1, 5643-2, 48233-6, LIVR, 3040-3, CBCA, BMP #### [facility] ([id number]) [address] [place] [address] 33331 Eosinophils/100 WBC (Bld) 1.2 % Normal [facility] Comment on above: Performed By: #### 8 9579-7, 43876-7, 5643-2, 49579-9, LIVR, 3040-3, CBCA, BMP #### [facility] ([id number]) [address] [place] [address] 87524 Erythrocyte distribution width (RBC) [Ratio] 12.9 % Normal 11.5-15.0 [facility] Comment on above: Performed By: #### 8 9579-7, 58761-4, 5643-2, 68503-0, LIVR, 3040-3, CBCA, BMP #### [facility] ([id number]) [address] [place] [address] 50461 Hematocrit (Bld) [Volume fraction] 42.2 % Normal 35-47 [facility] Comment on above: Performed By: #### 8 9579-7, 97226-2, 5643-2, 15600-4, LIVR, 3040-3, CBCA, BMP #### [facility] ([id number]) [address] [place] [address] 66421 Hemoglobin (Bld) [Mass/Vol] 14.5 g/dL Normal 11.7-15.5 [facility] Comment on above: Performed By: #### 8 9579-7, 73300-7, 5643-2, 98815-5, LIVR, 3040-3, CBCA, BMP #### [facility] ([id number]) [address] [place] [address] 15560 Lymphocytes (Bld) [#/Vol] 2.8 10*3/uL Normal 1.0-3.5 [facility] Comment on above: Performed By: #### 8 9579-7, 87663-3, 5643-2, 83086-1, LIVR, 3040-3, CBCA, BMP #### [facility] ([id number]) [address] [place] [address] 20051 Lymphocytes/100 WBC (Bld) 26.2 % Normal [facility] Comment on above: Performed By: #### 8 9579-7, 69331-5, 5643-2, 71616-6, LIVR, 3040-3, CBCA, BMP #### [facility] ([id number]) [address] [place] [address] 43044 MCH (RBC) [Entitic mass] 33.8 pg Normal 27-34 [facility] Comment on above: Performed By: #### 8 9579-7, 53930-8, 5643-2, 91017-3, LIVR, 3040-3, CBCA, BMP #### [facility] ([id number]) [address] [place] [address] 93679 MCHC (RBC) [Mass/Vol] 34.3 g/dL Normal 32-36 [facility] Comment on above: Performed By: #### 8 9579-7, 90833-2, 5643-2, 27043-4, LIVR, 3040-3, CBCA, BMP #### [facility] ([id number]) [address] [place] [address] 25785 MCV (RBC) [Entitic vol] 98 fL Normal 80-100 [facility] Comment on above: Performed By: #### 8 9579-7, 21695-7, 5643-2, 95514-6, LIVR, 3040-3, CBCA, BMP #### [facility] ([id number]) [address] [place] [address] 65501 Monocytes (Bld) [#/Vol] 0.9 10*3/uL Normal 0-0.9 [facility] Comment on above: Performed By: #### 8 9579-7, 68652-5, 5643-2, 96233-7, LIVR, 3040-3, CBCA, BMP #### [facility] ([id number]) [address] [place] [address] 56183 Monocytes/100 WBC (Bld) 8.2 % Normal [facility] Comment on above: Performed By: #### 8 9579-7, 54104-0, 5643-2, 14520-8, LIVR, 3040-3, CBCA, BMP #### [facility] ([id number]) [address] [place] [address] 93573 Neutrophils/100 WBC (Bld) 63.6 % Normal [facility] Comment on above: Performed By: #### 8 9579-7, 55589-9, 5643-2, 95606-4, LIVR, 3040-3, CBCA, BMP #### [facility] ([id number]) [address] [place] [address] 89169 Platelet mean volume (Bld) [Entitic vol] 8.2 fL Normal 7-12 [facility] Comment on above: Performed By: #### 8 9579-7, 74388-5, 5643-2, 89518-5, LIVR, 3040-3, CBCA, BMP #### [facility] ([id number]) [address] [place] [address] 50402 Platelets (Bld) [#/Vol] 259 10*3/uL Normal 150-450 [facility] Comment on above: Performed By: #### 8 9579-7, 46664-2, 5643-2, 35232-8, LIVR, 3040-3, CBCA, BMP #### [facility] ([id number]) [address] [place] [address] 32128 RBC COUNT 4.29 X10E12/L Normal 3.80-5.20 [facility] Comment on above: Performed By: #### 8 9579-7, 73464-4, 5643-2, 34368-1, LIVR, 3040-3, CBCA, BMP #### [facility] ([id number]) [address] [place] [address] 45359 WBC (Bld) [#/Vol] 10.7 10*3/uL Normal 4.0-11.0 [facility] Comment on above: Performed By: #### 8 9579-7, 78926-3, 5643-2, 18998-2, LIVR, 3040-3, CBCA, BMP #### [facility] ([id number]) [address] [place] [address] 89744 COMPREHENSIVE METABOLIC PANE Nimesh 01-14-2024 Albumin [Mass/Vol] 4.2 g/dL Normal 3.2-5.3 [facility] Comment on above: Performed By: #### 8 9579-7, 84997-3, 5643-2, 61433-9, LIVR, 3040-3, CBCA, BMP #### [facility] ([id number]) [address] [place] [address] 09998 ALP [Catalytic activity/Vol] 136 U/L High 39-130 [facility] Comment on above: Performed By: #### 8 9579-7, 90288-4, 5643-2, 17283-7, LIVR, 3040-3, CBCA, BMP #### [facility] ([id number]) [address] [place] [address] 05469 ALT [Catalytic activity/Vol] 18 U/L Normal 0-31 [facility] Comment on above: Performed By: #### 8 9579-7, 25290-7, 5643-2, 03824-3, LIVR, 3040-3, CBCA, BMP #### [facility] ([id number]) [address] [place] [address] 16234 Anion gap [Moles/Vol] 10 mmol/L Normal 5-15 [facility] Comment on above: Performed By: #### 8 9579-7, 69992-6, 5643-2, 28464-2, LIVR, 3040-3, CBCA, BMP #### [facility] ([id number]) [address] [place] [address] 73734 AST [Catalytic activity/Vol] 21 U/L Normal 0-41 [facility] Comment on above: Performed By: #### 8 9579-7, 19368-3, 5643-2, 52472-6, LIVR, 3040-3, CBCA, BMP #### [facility] ([id number]) [address] [place] [address] 51775 Bilirubin [Mass/Vol] 0.5 mg/dL Normal 0.3-1.2 [facility] Comment on above: Performed By: #### 8 9579-7, 19452-7, 5643-2, 87799-7, LIVR, 3040-3, CBCA, BMP #### [facility] ([id number]) [address] [place] [address] 14349 Calcium [Mass/Vol] 9.6 mg/dL Normal 8.5-10.5 [facility] Comment on above: Performed By: #### 8 9579-7, 98325-5, 5643-2, 04331-7, LIVR, 3040-3, CBCA, BMP #### [facility] ([id number]) [address] [place] [address] 14433 Chloride [Moles/Vol] 105 mmol/L Normal 98-109 [facility] Comment on above: Performed By: #### 8 9579-7, 18198-0, 5643-2, 25720-2, LIVR, 3040-3, CBCA, BMP #### [facility] ([id number]) [address] [place] [address] 37734 CO2 [Moles/Vol] 22 mmol/L Normal 22-32 [facility] Comment on above: Performed By: #### 8 9579-7, 30285-0, 5643-2, 79053-8, LIVR, 3040-3, CBCA, BMP #### [facility] ([id number]) [address] [place] [address] 93278 Creatinine [Mass/Vol] 0.74 mg/dL Normal 0.40-1.00 [facility] Comment on above: Result Comment: METH OD TRACEABLE TO IDMS STANDARD Performed By: #### 8 9579-7, 02876-3, 5643-2, 70487-7, LIVR, 3040-3, CBCA, BMP #### [facility] ([id number]) [address] [place] [address] 60915 eGFR (CKD-EPI) NON-RACE DEPENDENT >90 Normal >59 [facility] Comment on above: Result Comment: Reported eGFR is based on the CKD-EPI 2020 equation that does not use a race coefficient. Performed By: #### 8 9579-7, 65935-6, 5643-2, 97779-1, LIVR, 3040-3, CBCA, BMP #### [facility] ([id number]) [address] [place] [address] 25948 Glucose [Mass/Vol] 93 mg/dL Normal 65-99 [facility] Comment on above: Performed By: #### 8 9579-7, 11926-1, 5643-2, 72328-7, LIVR, 3040-3, CBCA, BMP #### [facility] ([id number]) [address] [place] [address] 90370 Potassium [Moles/Vol] 3.6 mmol/L Normal 3.5-5.0 [facility] Comment on above: Performed By: #### 8 9579-7, 44347-7, 5643-2, 28513-7, LIVR, 3040-3, CBCA, BMP #### [facility] ([id number]) [address] [place] [address] 87221 Protein [Mass/Vol] 7.3 g/dL Normal 6.0-8.0 [facility] Comment on above: Performed By: #### 8 9579-7, 87060-3, 5643-2, 04543-6, LIVR, 3040-3, CBCA, BMP #### [facility] ([id number]) [address] [place] [address] 97557 Sodium [Moles/Vol] 137 mmol/L Normal 134-146 [facility] Comment on above: Performed By: #### 8 9579-7, 04613-4, 5643-2, 82526-5, LIVR, 3040-3, CBCA, BMP #### [facility] ([id number]) [address] [place] [address] 25799 Urea nitrogen [Mass/Vol] 7 mg/dL Normal 5-23 [facility] Comment on above: Performed By: #### 8 9579-7, 40131-5, 5643-2, 43745-3, LIVR, 3040-3, CBCA, BMP #### [facility] ([id number]) [address] [place] [address] ABDOMEN AND PELVIS W CONT on [...] Rodgers MD on 01/14/2024 5:01 PM Normal [facility] LIPASEon 01-14-2024 Lipase [Catalytic activity/Vol] 72 U/L High 17-40 [facility] Comment on above: Performed By: #### 8 9579-7, 08863-1, 5643-2, 18887-9, LIVR, 3040-3, CBCA, BMP #### [facility] ([id number]) [address] [place] [address] 15175 MAGNESIUMon 01-14-2024 Magnesium [Mass/Vol] 2.2 mg/dL Normal 1.8-2.6 [facility] Comment on above: Performed By: #### 8 9579-7, 55254-2, 5643-2, 40525-7, LIVR, 3040-3, CBCA, BMP #### [facility] ([id number]) [address] [place] [address] 22334 URN MACROSCOPIC NURon 2023 BILIRUBIN JERE Negative Normal NEG [facility] Comment on above: Performed By: #### 8 9579-7, 34238-4, 5643-2, 27198-9, LIVR, 3040-3, CBCA, BMP #### [facility] ([id number]) [address] [place] [address] 72168 BLOOD/HGB JERE Negative Normal NEG [facility] Comment on above: Performed By: #### 8 9579-7, 48615-5, 5643-2, 55955-7, LIVR, 3040-3, CBCA, BMP #### [facility] ([id number]) [address] [place] [address] 65213 GLUCOSE JERE Negative Normal NEG [facility] Comment on above: Performed By: #### 8 9579-7, 01300-7, 5643-2, 39630-5, LIVR, 3040-3, CBCA, BMP #### [facility] ([id number]) [address] [place] [address] 15493 KETONES JERE Negative Normal NEG [facility] Comment on above: Performed By: #### 8 9579-7, 96784-8, 5643-2, 46804-9, LIVR, 3040-3, CBCA, BMP #### [facility] ([id number]) [address] [place] [address] 26156 LEUKOCYTE ESTERASE JERE Negative Normal NEG Pr [facility] Comment on above: Performed By: #### 8 9579-7, 99680-7, 5643-2, 99637-5, LIVR, 3040-3, CBCA, BMP #### [facility] ([id number]) [address] [place] [address] 65139 NITRITE JERE Negative Normal NEG [facility] Comment on above: Performed By: #### 8 9579-7, 62793-3, 5643-2, 23105-6, LIVR, 3040-3, CBCA, BMP #### [facility] ([id number]) [address] [place] [address] 63260 PH JERE 5.5 Normal 5.0-8.5 [facility] Comment on above: Performed By: #### 8 9579-7, 47157-7, 5643-2, 91393-7, LIVR, 3040-3, CBCA, BMP #### [facility] ([id number]) [address] [place] [address] 29089 PROTEIN JERE Negative Normal NEG [facility] Comment on above: Performed By: #### 8 9579-7, 92607-9, 5643-2, 81692-1, LIVR, 3040-3, CBCA, BMP #### [facility] ([id number]) [address] [place] [address] SPECIFIC GRAVITY JERE >=1.030 Normal 1.003-1 .03 5 [facility] Comment on above: Performed By: #### 8 9579-7, 18274-7, 5643-2, 63162-2, LIVR, 3040-3, CBCA, BMP #### [facility] ([id number]) [address] [place] [address] UROBILINOGEN JERE 0.2 eu/dL Normal <1.1 [facility] Comment on above: Performed By: #### 8 9579-7, 71095-9, 5643-2, 88815-3, LIVR, 3040-3, CBCA, BMP #### [facility] ([id number]) [address] [place] [address] CBC with Auto Differentialon 01-07-2024 Basophils (Bld) [#/Vol] 0.09 10*3/uL [facility] Basophils/100 WBC (Bld) 1 % 0 - 2 % [facility] Eosinophils (Bld) [#/Vol] 0.10 10*3/uL [facility] Eosinophils/100 WBC (Bld) 1 % 1 - 4 % [facility] Erythrocyte distribution width (RBC) [Ratio] 12.2 % 11.8 - 14.4 % [facility] Hematocrit (Bld) [Volume fraction] 46.3 % 36.3 - 47.1 % [facility] Hemoglobin (Bld) [Mass/Vol] 15.9 g/dL High 11.9 - 15.1 g/dL [facility] Immature granulocytes (Bld) [#/Vol] [facility] Immature granulocytes/100 WBC (Bld) 0 % 0 [facility] Interpretation and review of laboratory results Abnormal [facility] Lymphocytes/100 WBC (Bld) 28 % 24 - 43 % [facility] Lymphocytes/100 WBC (Bld) 2.73 % [facility] MCH (RBC) [Entitic mass] 33.8 pg High 25.2 - 33.5 pg [facility] MCHC (RBC) [Mass/Vol] 34.3 g/dL 28.4 - 34.8 g/dL [facility] MCV (RBC) [Entitic vol] 98.3 fL 82.6 - 102.9 fL [facility] Monocytes/100 WBC (Bld) 9 % 3 - 12 % [facility] Monocytes/100 WBC (Bld) 0.88 % [facility] Neutrophils/100 WBC (Bld) 61 % 36 - 65 % [facility] Nucleated RBC/100 WBC (Bld) [Ratio] 0.0 % 0.0 per 100 WBC [facility] Platelet mean volume (Bld) [Entitic vol] 9.7 fL 8.1 - 13.5 fL [facility] Platelets (Bld) [#/Vol] 277 10*3/uL [facility] RBC (Bld) [#/Vol] 4.71 10*6/uL 3.95 - 5.11 m/uL [facility] Segmented neutrophils/100 WBC (Bld) 6.06 % [facility] WBC other (Bld) [#/Vol] 9.9 [facility] CBC with Diffon 01-07-2024 Abs. Basophil 0.09 k/uL Normal 0.00-0.20 [facility] Comment on above: Performed By: #### L WALTER ROONEY, CP #### [facility] [address] [place] [address] [employer] Belt Operator: Ion Jasso MD Abs.Imm.Granulocyte <0.03 Normal 0.00-0.30 [facility] Comment on above: Performed By: #### L WALTER ROONEY, CP #### [facility] [address] [place] [address] [employer] Belt Operator: Ion Jasso MD Abs.Neutrophil (Seg) 6.06 k/uL Normal 1.50-8.10 [facility] Comment on above: Performed By: #### L WALTER ROONEY, CP #### [facility] [address] [place] [address] Dr. [place], [facility] [employer] Operator: Ion Jasso MD Basophils/100 WBC (Bld) 1 % Normal 0-2 [facility] Comment on above: Performed By: #### L IP, CDP, CP #### [address] [place], [facility] [employer] Operator: Ion Jasso MD Eosinophils (Bld) [#/Vol] 0.10 10*3/uL Normal 0.00-0.44 [facility] Comment on above: Performed By: #### L IP, CDP, CP #### [address] [place], [facility] [employer] Operator: Ion Jasso MD Eosinophils/100 WBC (Bld) 1 % Normal 1-4 [facility] Comment on above: Performed By: #### L IP, CDP, CP #### [address] [place], [facility] Char Belt Operator: Ion Jasso MD Erythrocyte distribution width (RBC) [Ratio] 12.2 % Normal 11.8-14.4 [facility] Comment on above: Performed By: #### L IP, CDP, CP #### [address] [place], [facility] Char Belt Operator: Ion Jasso MD Hematocrit (Bld) [Volume fraction] 46.3 % Normal 36.3-47.1 [facility] Comment on above: Performed By: #### L IP, CDP, CP #### [address] [place], [facility] Char Belt Operator: Ion Jasso MD Hemoglobin (Bld) [Mass/Vol] 15.9 g/dL High 11.9-15.1 [facility] Comment on above: Performed By: #### L IP, CDP, CP #### [address] [place], [place] [id number] Char Belt Operator: Ion Jasso MD Immature granulocytes/100 WBC (Bld) 0 % Normal 0 [facility] Comment on above: Performed By: #### L IP, CDP, CP #### [address] [place], [place] [id number] Char Belt Operator: Ion Jasso MD Lymphocytes (Bld) [#/Vol] 2.73 10*3/uL Normal 1.10-3.70 [facility] Comment on above: Performed By: #### L IP, CDP, CP #### [address] [place], [facility] Char Belt Operator: Ion Jasso MD Lymphocytes/100 WBC (Bld) 28 % Normal 24-43 [facility] Comment on above: Performed By: #### L IP, CDP, CP #### [address] [place], [facility] Char Belt Operator: Ion Jasso MD MCH (RBC) [Entitic mass] 33.8 pg High 25.2-33.5 [facility] Comment on above: Performed By: #### L IP, CDP, CP #### [address] [place], [facility] Char Belt Operator: Ion Jasso MD MCHC (RBC) [Mass/Vol] 34.3 g/dL Normal 28.4-34.8 [facility] Comment on above: Performed By: #### L IP, CDP, CP #### [address] [place], [place] [id number] Char Belt Operator: Ion Jasso MD MCV (RBC) [Entitic vol] 98.3 fL Normal 82.6-102.9 [facility] Comment on above: Performed By: #### L IP, CDP, CP #### [address] [place], [place] [id number] Char Belt Operator: Ion Jasso MD Monocytes (Bld) [#/Vol] 0.88 10*3/uL Normal 0.10-1.20 [facility] Comment on above: Performed By: #### L IP, CDP, CP #### [facility] [address] [place] [address] Char Belt Operator: Ion Jasso MD Monocytes/100 WBC (Bld) 9 % Normal 3-12 [facility] Comment on above: Performed By: #### L IP, CDP, CP #### [address] [place], [facility] Char Belt Operator: Ion Jasso MD Neutrophil (Seg) 61 % Normal 36-65 [facility] Comment on above: Performed By: #### L IP, CDP, CP #### [address] [place], [facility] ( Char Belt Operator: Ion Jasso MD NRBC Automated 0.0 per 100 WBC Normal 0.0 [facility] Comment on above: Performed By: #### L IP, CDP, CP #### [address] [place], [facility] Char Belt Operator: Ion Jasso MD Platelet mean volume (Bld) [Entitic vol] 9.7 fL Normal 8.1-13.5 [facility] Comment on above: Performed By: #### L IP, CDP, CP #### [address] [place], [facility] Char Belt Operator: Ion Jasso MD Platelets (Bld) [#/Vol] 277 10*3/uL Normal 138-453 [facility] Comment on above: Performed By: #### L IP, CDP, CP #### [address] [place], [place] [id number] Char Belt Operator: Ion Jasso MD RBC (Bld) [#/Vol] 4.71 10*6/uL Normal 3.95-5.11 [facility] Comment on above: Performed By: #### L TORIBIO CDP, CP #### [facility] [address] [place] [address] Char Belt Operator: Ion Jasso MD WBC (Bld) [#/Vol] 9.9 10*3/uL Normal 3.5-11.3 [facility] Comment on above: Performed By: #### L IP, CDP, CP #### [facility] [address] [place], [place] [id number] Char Belt Operator: Ion Jasso MD Comp Metabolic Profon 2023 Albumin [Mass/Vol] 4.3 g/dL Normal 3.5-5.2 [facility] Comment on above: Performed By: #### L WALTER ROONEY, CP #### [address] [place], [place] [id number] Char Belt Operator: Ion Jasso MD Albumin/Glob Ratio 1.6 Normal 1.0-2.5 [facility] Comment on above: Performed By: #### L WALTER ROONEY, CP #### [address] [place], [place] 6777483 Char Belt Operator: Ion Jasso MD Alkaline Phos 145 U/L High 35-104 [facility] Comment on above: Performed By: #### L TORIBIO CDP, CP #### [facility] [address] [place], [place] [id number] Char Belt Operator: Ion Jasso MD ALT [Catalytic activity/Vol] 11 U/L Normal 10-35 [facility] Comment on above: Performed By: #### L TORIBIO CDP, CP #### [facility] [address] [place] [address] Char Belt Operator: Ion Jasso MD Anion gap [Moles/Vol] 12 mmol/L Normal 9-16 [facility] Comment on above: Performed By: #### L IP, CDP, CP #### [facility] [address] [place] [address] Char Belt Operator: Ion Jasso MD AST [Catalytic activity/Vol] 25 U/L Normal 10-35 [facility] Comment on above: Result Comment: Spec imen hemolysis has exceeded the interference as defined by Joycelyn. Value may be falsely increased. Suggest recollection if clinically indicated. Performed By: #### L IP, CDP, CP #### [facility] [address] [place] [address] Char Belt Operator: Ion Jasso MD Bilirubin [Mass/Vol] mg/dL Normal 0.00-1.20 [facility] Comment on above: Performed By: #### L IP, CDP, CP #### [address] [place] [address] Char Belt Operator: Ion Jasso MD BUN/CRE Ratio 9 Normal 9-20 [facility] Comment on above: Performed By: #### L IP, CDP, CP #### [address] [place], [place] [id number] Char Belt Operator: Ion Jasso MD Calcium [Mass/Vol] 9.8 mg/dL Normal 8.6-10.4 [facility] Comment on above: Performed By: #### L IP, CDP, CP #### [facility] [address] [place], [place] [id number] Char Belt Operator: Ion Jasso MD Chloride [Moles/Vol] 103 mmol/L Normal 98-107 [facility] Comment on above: Performed By: #### L IP, CDP, CP #### [facility] [address] [place] [address] Char Belt Operator: Ion Jasso MD CO2 [Moles/Vol] 22 mmol/L Normal 20-31 [facility] Comment on above: Performed By: #### L IP, CDP, CP #### [facility] [address] [place] [address] Char Belt Operator: Ion Jasso MD Creatinine [Mass/Vol] 0.8 mg/dL Normal 0.50-0.90 [facility] Comment on above: Performed By: #### L IP, CDP, CP #### [facility] [address] [place] [address] Char Belt Operator: Ion Jasso MD GFR/1.73 sq M.predicted among non-blacks MDRD (S/P/Bld) [Vol rate/Area] mL/min/{1.73_m2} Normal >60 [facility] Comment on above: Result Comment: These [...] affects renal tubular secretion. Performed By: #### L TORIBIO CDP, CP #### [address] [place] [address] Char Belt Operator: Ion Jasso MD Glucose [Mass/Vol] 96 mg/dL Normal 74-99 [facility] Comment on above: Performed By: #### L WALTER ROONEY, CP #### [facility] [address] [place] [address] Char Belt Operator: Ion Jasso MD Potassium [Moles/Vol] 4.6 mmol/L Normal 3.7-5.3 [facility] Comment on above: Result Comment: Spec imen hemolysis has exceeded the interference as defined by Joycelyn. Value may be falsely increased. Suggest recollection if clinically indicated. Performed By: #### L IP, CDP, CP #### [facility] [address] [place] [address] Char Belt Operator: Ion Jasso MD Protein [Mass/Vol] 7.0 g/dL Normal 6.6-8.7 [facility] Comment on above: Performed By: #### L WALTER ROONEY, CP #### [facility] [address] [place] [address] Char Belt Operator: Ion Jasso MD Sodium [Moles/Vol] 137 mmol/L Normal 136-145 [facility] Comment on above: Performed By: #### L WALTER ROONEY, CP #### [facility] [address] [place] [address] Char Belt Operator: Ion Jasso MD Urea nitrogen [Mass/Vol] 7 mg/dL Normal 6-20 [facility] Comment on above: Performed By: #### L WALTER ROONEY, CP #### [facility] [address] [place] [address] Char Belt Operator: Ion Jasso MD Comprehensive Metabolic Pane [facility] 01-07-2024 Albumin [Mass/Vol] 4.3 g/dL 3.5 - 5.2 g/dL [facility] Albumin/Globulin [Mass ratio] 1.6 {ratio} 1.0 - 2.5 [facility] ALP [Catalytic activity/Vol] 145 U/L High 35 - 104 U/L [facility] ALT [Catalytic activity/Vol] 11 U/L 10 - 35 U/L [facility] Anion gap [Moles/Vol] 12 mmol/L 9 - 16 mmol/L [facility] AST [Catalytic activity/Vol] 25 U/L 10 - 35 U/L [facility] Comment on above: Specimen hemolysis h as exceeded the interference as defined by Joycelyn. Value may be falsely increased. Suggest recollection if clinically indicated. Bilirubin [Mass/Vol] mg/dL 0.00 - 1.20 mg/dL [facility] Calcium [Mass/Vol] 9.8 mg/dL 8.6 - 10. 4 mg/dL [facility] Chloride [Moles/Vol] 103 mmol/L 98 - 10 7 mmol/L [facility] CO2 [Moles/Vol] 22 mmol/L 20 - 31 mmol/L [facility] Creatinine [Mass/Vol] 0.8 mg/dL 0.50 - 0.90 mg/dL [facility] Kaylyn Prather Rate - PINF [facility] Comment on above: These results are not [...] [Mass/Vol] 96 mg/dL 74 - 99 mg/dL [facility] Potassium [Moles/Vol] 4.6 mmol/L 3.7 - 5.3 mmol/L [facility] Comment on above: Specimen hemolysis h as exceeded the interference as defined by Joycelyn. Value may be falsely increased. Suggest recollection if clinically indicated. Protein [Mass/Vol] 7.0 g/dL 6.6 - 8.7 g/dL [facility] Sodium [Moles/Vol] 137 mmol/L 136 - 145 mmol/L [facility] Urea nitrogen [Mass/Vol] 7 mg/dL 6 - 20 mg/dL [facility] Urea nitrogen/Creatinine [Mass ratio] 9 mg/mg 9 - 20 [facility] Lactic Acidon 01-07-2024 Lactate (BldV) [Moles/Vol] 1.3 mmol/L 0.5 - 2.2 mmol/L [facility] Lactate [Moles/Vol] 1.3 mmol/L Normal 0.5-2.2 [facility] Comment on above: Performed By: #### B MP, LIVP, LIP #### [facility] [address] [place] [address] Char Belt Operator: Ion Jasso MD Lipaseon 01-07-2024 Lipase [Catalytic activity/Vol] 144 U/L High 13 - 60 U/L [facility] Lipase [Catalytic activity/Vol] 144 U/L High 13-60 [facility] Comment on above: Performed By: #### L IP, CDP, CP #### [facility] [address] [place] [address] Char Belt Operator: Ion Jasso MD No Panel Informationon 01-06 Interpretation and review of laboratory results Abnormal [facility] Urinalysis w/ Microon 2023 Bilirubin, SemiQt,Ur Negative Normal NEG [facility] Comment on above: Performed By: #### L IP, CDP, CP #### [facility] [address] [place], [facility] Char Belt Operator: Ion Jasso MD Blood, Urine Negative Normal NEG [facility] Comment on above: Performed By: #### L IP, CDP, CP #### [facility] [address] [place], [facility] Char Belt Operator: Ion Jasso MD Clarity (U) Clear Normal CLEAR [facility] Comment on above: Performed By: #### L IP, CDP, CP #### [address] [place], [place] [id number] Char Belt Operator: Ion Jasso MD Color (U) Yellow Normal YEL [facility] Comment on above: Performed By: #### L IP, CDP, CP #### [facility] [address] [place], [place] 3635683 Char Belt Operator: Ion Jasso MD Epithelial cells LM Ql (Urine sed) 0 TO 2 Normal 0-25 [facility] Comment on above: Performed By: #### L IP, CDP, CP #### [facility] [address] [place] [address] Char Belt Operator: Ion Jasso MD Glucose Ql (U) Negative Normal NEG [facility] Comment on above: Performed By: #### L IP, CDP, CP #### [facility] [address] [place] [address] Dr. [place], [place] 4800583 Char Belt Operator: Ion Jasso MD Ketones Ql (U) Negative Normal NEG [facility] Comment on above: Performed By: #### L IP, CDP, CP #### [facility] [address] [place] [address] Dr. [place], [place] 8042283 Char Belt Operator: Ion Jasso MD Leukocyte esterase Test strip Ql (U) Negative Normal NEG [facility] Comment on above: Performed By: #### L IP, CDP, CP #### [address] [place], [place] 2532383 Char Belt Operator: Ion Jasso MD Nitrite,Ur Negative Normal NEG [facility] Comment on above: Performed By: #### L IP, CDP, CP #### [address] [place], [facility] Char Belt Operator: Ion Jasso MD PH,Ur 6.0 Normal 5.0-9.0 [facility] Comment on above: Performed By: #### L IP, CDP, CP #### [address] [place], [place] 8793383 Char Belt Operator: Ion Jasso MD Protein Ql (U) Negative Normal NEG [facility] Comment on above: Performed By: #### L IP, CDP, CP #### [address] [place], [facility] Char Belt Operator: Ion Jasso MD Spec. [place],Ur 1.010 Normal 1.010-1.02 0 [facility] Comment on above: Performed By: #### L IP, CDP, CP #### [address] [place], [place] 1687383 Char Belt Operator: Ion Jasso MD Urine RBC's None Normal 0-2 [facility] Comment on above: Performed By: #### L IP, CDP, CP #### [facility] [address] [place] [address] Char Belt Operator: Ion Jasso MD Urine WBC's 0 TO 2 Normal 0-5 [facility] Comment on above: Performed By: #### L WALTER ROONEY, CP #### [facility] [address] [place] [address] Char Belt Operator: Ion Jasso MD Urobilinogen,Ur Normal Normal 0.0-1.0 [facility] Comment on above: Performed By: #### L WALTER ROONEY, CP #### [facility] [address] [place] [address] Char Belt Operator: Ion Jasso MD Urinalysis with Microscopico n 01-07-2024 Bilirubin Ql (U) Negative NEGATIVE [facility] Clarity (U) Clear Clear [facility] Color (U) Yellow Yellow [facility] Epithelial cells LM.HPF (Urine sed) [#/Area] 0 TO 2 [facility] Glucose Test strip (U) [Mass/Vol] Negative NEGATIVE mg/dL [facility] Hemoglobin Auto test strip Ql (U) Negative NEGATIVE [facility] Ketones (U) [Mass/Vol] Negative NEGAT MATTHIAS mg/dL [facility] Leukocyte esterase Test strip Ql (U) Negative NEGATIVE [facility] Nitrite Ql (U) Negative NEGATIVE [facility] pH (U) 6.0 [pH] 5.0 - 9.0 [facility] Protein (U) [Mass/Vol] Negative NEGAT MATTHIAS mg/dL [facility] RBC LM.HPF (Urine sed) [#/Area] None [facility] Specific gravity (U) [Rel density] 1.010 1.010 - 1.020 [facility] Urobilinogen Qn (U) Normal 0.0 - 1. 0 EU/dL [facility] WBC LM.HPF (Urine sed) [#/Area] 0 TO 2 [facility] BASIC METABOLIC PANLon 12-28 Anion gap [Moles/Vol] 8 mmol/L Normal 5-15 [facility] Comment on above: Performed By: #### 8 9579-7, 97574-3, 5643-2, 25659-3, LIVR, 3040-3, CBCA, BMP #### [facility] ([id number]) [address] [place] [address] 13906 Calcium [Mass/Vol] 9.7 mg/dL Normal 8.5-10.5 [facility] Comment on above: Performed By: #### 8 9579-7, 68783-6, 5643-2, 07122-8, LIVR, 3040-3, CBCA, BMP #### [facility] ([id number]) [address] [place] [address]698 Chloride [Moles/Vol] 106 mmol/L Normal 98-109 [facility] Comment on above: Performed By: #### 8 9579-7, 29153-4, 5643-2, 19617-7, LIVR, 3040-3, CBCA, BMP #### [facility] ([id number]) [address] [place] [address] 00942 CO2 [Moles/Vol] 24 mmol/L Normal 22-32 [facility] Comment on above: Performed By: #### 8 9579-7, 63929-6, 5643-2, 11952-1, LIVR, 3040-3, CBCA, BMP #### [facility] ([id number]) [address] [place] [address] 82858 Creatinine [Mass/Vol] 0.88 mg/dL Normal 0.40-1.00 [facility] Comment on above: Result Comment: METH OD TRACEABLE TO IDMS STANDARD Performed By: #### 8 9579-7, 69492-2, 5643-2, 22269-2, LIVR, 3040-3, CBCA, BMP #### [facility] ([id number]) [address] [place] [address] 75231 GFR/1.73 sq M.predicted among non-blacks MDRD (S/P/Bld) [Vol rate/Area] 78 mL/min/{1.73_m2} Normal >59 [facility] Comment on above: Result Comment: Reported eGFR is based on the CKD-EPI 2020 equation that does not use a race coefficient. Performed By: #### 8 9579-7, 74349-4, 5643-2, 00893-7, LIVR, 3040-3, CBCA, BMP #### [facility] ([id number]) [address] [place] [address] 91144 Glucose [Mass/Vol] 82 mg/dL Normal 65-99 [facility] Comment on above: Performed By: #### 8 9579-7, 32582-1, 5643-2, 60646-1, LIVR, 3040-3, CBCA, BMP #### [facility] ([id number]) [address] [place] [address] 79834 Potassium [Moles/Vol] 4.2 mmol/L Normal 3.5-5.0 [facility] Comment on above: Result Comment: SPEC IMEN HEMOLYZED, RESULTS INCREASED Performed By: #### 8 9579-7, 65262-5, 5643-2, 95253-7, LIVR, 3040-3, CBCA, BMP #### [facility] ([id number]) [address] [place] [address] 48586 Sodium [Moles/Vol] 138 mmol/L Normal 134-146 [facility] Comment on above: Performed By: #### 8 9579-7, 57080-1, 5643-2, 46023-4, LIVR, 3040-3, CBCA, BMP #### [facility] ([id number]) [address] [place] [address] 60897 Urea nitrogen [Mass/Vol] 12 mg/dL Normal 5-23 [facility] Comment on above: Performed By: #### 8 9579-7, 02652-8, 5643-2, 49316-1, LIVR, 3040-3, CBCA, BMP #### [facility] ([id number]) [address] [place] [address] 22586 CBC AND AUTO DIFFon 10-22-20 24 ABSOLUTE BASOPHIL 0.1 X10E9/L Normal 0.0-0.2 [facility] Comment on above: Performed By: #### 8 9579-7, 08876-7, 5643-2, 40370-7, LIVR, 3040-3, CBCA, BMP #### [facility] ([id number]) [address] [place] [address] 23787 ABSOLUTE NEUTROPHIL 3.9 X10E9/L Normal 1.5-6.6 [facility] Comment on above: Performed By: #### 8 9579-7, 19686-2, 5643-2, 64708-8, LIVR, 3040-3, CBCA, BMP #### [facility] ([id number]) [address] [place] [address] 39617 Basophils/100 WBC (Bld) 1.3 % Normal [facility] Comment on above: Performed By: #### 8 9579-7, 05973-4, 5643-2, 08294-9, LIVR, 3040-3, CBCA, BMP #### [facility] ([id number]) [address] [place] [address] 28804 Eosinophils (Bld) [#/Vol] 0.2 10*3/uL Normal 0.0-0.4 [facility] Comment on above: Performed By: #### 8 9579-7, 12486-8, 5643-2, 00587-1, LIVR, 3040-3, CBCA, BMP #### [facility] ([id number]) [address] [place] [address] 13264 Eosinophils/100 WBC (Bld) 2.3 % Normal [facility] Comment on above: Performed By: #### 8 9579-7, 51112-9, 5643-2, 21530-5, LIVR, 3040-3, CBCA, BMP #### [facility] ([id number]) [address] [place] [address] 03162 Erythrocyte distribution width (RBC) [Ratio] 13.2 % Normal 11.5-15.0 [facility] Comment on above: Performed By: #### 8 9579-7, 55162-3, 5643-2, 89202-6, LIVR, 3040-3, CBCA, BMP #### [facility] ([id number]) [address] [place] [address] 77157 Hematocrit (Bld) [Volume fraction] 41.8 % Normal 35-47 [facility] Comment on above: Performed By: #### 8 9579-7, 11346-1, 5643-2, 04620-5, LIVR, 3040-3, CBCA, BMP #### [facility] ([id number]) [address] [place] [address] 83182 Hemoglobin (Bld) [Mass/Vol] 14.3 g/dL Normal 11.7-15.5 [facility] Comment on above: Performed By: #### 8 9579-7, 26348-5, 5643-2, 50019-3, LIVR, 3040-3, CBCA, BMP #### [facility] ([id number]) [address] [place] [address] 70707 Lymphocytes (Bld) [#/Vol] 2.5 10*3/uL Normal 1.0-3.5 [facility] Comment on above: Performed By: #### 8 9579-7, 64312-1, 5643-2, 80898-4, LIVR, 3040-3, CBCA, BMP #### [facility] ([id number]) [address] [place] [address] 08696 Lymphocytes/100 WBC (Bld) 33.1 % Normal [facility] Comment on above: Performed By: #### 8 9579-7, 06966-6, 5643-2, 93428-1, LIVR, 3040-3, CBCA, BMP #### [facility] ([id number]) [address] [place] [address] 78540 MCH (RBC) [Entitic mass] 34.0 pg Normal 27-34 [facility] Comment on above: Performed By: #### 8 9579-7, 56368-1, 5643-2, 46435-1, LIVR, 3040-3, CBCA, BMP #### [facility] ([id number]) [address] [place] [address] 06051 MCHC (RBC) [Mass/Vol] 34.1 g/dL Normal 32-36 [facility] Comment on above: Performed By: #### 8 9579-7, 36894-4, 5643-2, 97308-4, LIVR, 3040-3, CBCA, BMP #### [facility] ([id number]) [address] [place] [address] 91786 MCV (RBC) [Entitic vol] 100 fL Normal 80-100 [facility] Comment on above: Performed By: #### 8 9579-7, 58357-9, 5643-2, 06751-8, LIVR, 3040-3, CBCA, BMP #### [facility] ([id number]) [address] [place] [address] 15450 Monocytes (Bld) [#/Vol] 0.9 10*3/uL Normal 0-0.9 [facility] Comment on above: Performed By: #### 8 9579-7, 60975-1, 5643-2, 37236-0, LIVR, 3040-3, CBCA, BMP #### [facility] ([id number]) [address] [place] [address] 49385 Monocytes/100 WBC (Bld) 12.0 % Normal [facility] Comment on above: Performed By: #### 8 9579-7, 92574-4, 5643-2, 65955-4, LIVR, 3040-3, CBCA, BMP #### [facility] ([id number]) [address] [place] [address] 26973 Neutrophils/100 WBC (Bld) 51.3 % Normal [facility] Comment on above: Performed By: #### 8 9579-7, 05120-7, 5643-2, 64467-2, LIVR, 3040-3, CBCA, BMP #### [facility] ([id number]) [address] [place] [address] 58082 Platelet mean volume (Bld) [Entitic vol] 8.2 fL Normal 7-12 [facility] Comment on above: Performed By: #### 8 9579-7, 39976-0, 5643-2, 95607-6, LIVR, 3040-3, CBCA, BMP #### [facility] ([id number]) [address] [place] [address] 70867 Platelets (Bld) [#/Vol] 266 10*3/uL Normal 150-450 [facility] Comment on above: Performed By: #### 8 9579-7, 91043-9, 5643-2, 60436-9, LIVR, 3040-3, CBCA, BMP #### [facility] ([id number]) [address] [place] [address] 97264 RBC COUNT 4.19 X10E12/L Normal 3.80-5.20 [facility] Comment on above: Performed By: #### 8 9579-7, 40857-9, 5643-2, 99716-6, LIVR, 3040-3, CBCA, BMP #### [facility] ([id number]) [address] [place] [address] WBC (Bld) [#/Vol] 7.7 10*3/uL Normal 4.0-11.0 [facility] Comment on above: Performed By: #### 8 9579-7, 89091-3, 5643-2, 31525-9, LIVR, 3040-3, CBCA, BMP #### [facility] ([id number]) [address] [place] [address] CT ABDOMEN AND PELVIS WO CON Ton [...] Presley MD on 12/29/2023 6:27 AM Normal [facility] ETHANOLon 12-29-2023 Ethanol [Mass/Vol] mg/dL Normal 0.00-0.08 [facility] Comment on above: Result Comment: This report is intended for use in clinical monitoring or management of patients. Performed By: #### 8 9579-7, 39673-2, 5643-2, 38444-7, LIVR, 3040-3, CBCA, BMP #### [facility] ([id number]) [address] [place] [address] Fibrin D-dimer DDU (PPP) [Ma ss/Vol]on 12-29-2023 D DIMER <150 Normal <255 [facility] Comment on above: Result Comment: Results <255 ng/mL DDU: The presence of a VTE can safely be excluded with a negative D-Dimer result and Wells score. A negative result doesn't exclude the possibility of DIC. The test be repeated along with other diagnostic tests if the patient's symptoms persist or worsen. [email or web address] Performed By: #### 8 9579-7, 36571-6, 5643-2, 86135-2, LIVR, 3040-3, CBCA, BMP #### [facility] ([id number]) [address] [place] [address] LIPASEon 12-29-2023 Lipase [Catalytic activity/Vol] 55 U/L High 17-40 [facility] Comment on above: Performed By: #### 8 9579-7, 08771-0, 5643-2, 81092-2, LIVR, 3040-3, CBCA, BMP #### [facility] ([id number]) [address] [place] [address] LIVER PANELon 12-29-2023 Albumin [Mass/Vol] 3.9 g/dL Normal 3.2-5.3 [facility] Comment on above: Performed By: #### 8 9579-7, 82636-0, 5643-2, 03731-5, LIVR, 3040-3, CBCA, BMP #### [facility] ([id number]) [address] [place] [address] ALP [Catalytic activity/Vol] 111 U/L Normal 39-130 [facility] Comment on above: Performed By: #### 8 9579-7, 39699-5, 5643-2, 09729-0, LIVR, 3040-3, CBCA, BMP #### [facility] ([id number]) [address] [place] [address] ALT [Catalytic activity/Vol] 11 U/L Normal 0-31 [facility] Comment on above: Performed By: #### 8 9579-7, 97497-5, 5643-2, 42329-1, LIVR, 3040-3, CBCA, BMP #### [facility] ([id number]) [address] [place] [address] AST [Catalytic activity/Vol] 23 U/L Normal 0-41 [facility] Comment on above: Performed By: #### 8 9579-7, 79301-9, 5643-2, 34639-5, LIVR, 3040-3, CBCA, BMP #### [facility] ([id number]) [address] [place] [address] Bilirubin [Mass/Vol] 0.5 mg/dL Normal 0.3-1.2 [facility] Comment on above: Result Comment: RESU LTS QUESTIONABLE DUE TO HEMOLYSIS Performed By: #### 8 9579-7, 52760-0, 5643-2, 04520-7, LIVR, 3040-3, CBCA, BMP #### [facility] ([id number]) [address] [place] [address] Bilirubin.direct [Mass/Vol] 0.3 mg/dL Normal 0.0-0.4 [facility] Comment on above: Performed By: #### 8 9579-7, 29233-6, 5643-2, 81972-5, LIVR, 3040-3, CBCA, BMP #### [facility] ([id number]) [address] [place] [address] Protein [Mass/Vol] 6.9 g/dL Normal 6.0-8.0 [facility] Comment on above: Performed By: #### 8 9579-7, 19099-5, 5643-2, 34810-5, LIVR, 3040-3, CBCA, BMP #### [facility] ([id number]) [address] [place] [address] MAGNESIUMon 12-29-2023 Magnesium [Mass/Vol] 2.2 mg/dL Normal 1.8-2.6 [facility] Comment on above: Performed By: #### 8 9579-7, 59055-9, 5643-2, 26056-7, LIVR, 3040-3, CBCA, BMP #### [facility] ([id number]) [address] [place] [address] Troponin I.cardiac High sens itivity method [Mass/Vol]on 12-29-2023 1 HOUR TROP I, HIGH SENSITIVITY 2 ng/L Normal <16 [facility] Comment on above: Performed By: #### 8 9579-7 #### [facility] ([id number]) [address] [place] [address] TROPONIN I, HIGH SENSITIVITY 2 ng/L Normal <16 [facility] Comment on above: Performed By: #### 8 9579-7, 42920-1, 5643-2, 10435-7, LIVR, 3040-3, CBCA, BMP #### [facility] ([id number]) [address] [place] [address]38[address] CBC with Diffon 09-29-2023 Basophils (Bld) [#/Vol] 0.05 10*3/uL [facility] Basophils/100 WBC (Bld) 0 % 0 - 2 % [facility] Eosinophils (Bld) [#/Vol] 0.05 10*3/uL [facility] Eosinophils/100 WBC (Bld) 0 % Low 1 - 4 % [facility] Erythrocyte distribution width (RBC) [Ratio] 12.9 % 11.8 - 14.4 % [facility] Hematocrit (Bld) [Volume fraction] 40.3 % 36.3 - 47.1 % [facility] Hemoglobin (Bld) [Mass/Vol] 14.2 g/dL 11.9 - 15.1 g/dL [facility] Immature granulocytes (Bld) [#/Vol] [facility] Immature granulocytes/100 WBC (Bld) 0 % 0 [facility] Interpretation and review of laboratory results Abnormal [facility] Lymphocytes/100 WBC (Bld) 19 % Low 24 - 43 % [facility] Lymphocytes/100 WBC (Bld) 2.18 % [facility] MCH (RBC) [Entitic mass] 33.8 pg High 25.2 - 33.5 pg [facility] MCHC (RBC) [Mass/Vol] 35.2 g/dL High 28.4 - 34.8 g/dL [facility] MCV (RBC) [Entitic vol] 96.0 fL 82.6 - 102.9 fL [facility] Monocytes/100 WBC (Bld) 8 % 3 - 12 % [facility] Monocytes/100 WBC (Bld) 0.94 % [facility] Neutrophils/100 WBC (Bld) 73 % High 36 - 65 % [facility] Nucleated RBC/100 WBC (Bld) [Ratio] 0.0 % 0.0 per 100 WBC [facility] Platelet mean volume (Bld) [Entitic vol] 9.4 fL 8.1 - 13.5 fL [facility] Platelets (Bld) [#/Vol] 193 10*3/uL [facility] RBC (Bld) [#/Vol] 4.20 10*6/uL 3.95 - 5.11 m/uL [facility] Segmented neutrophils/100 WBC (Bld) 8.10 % [facility] WBC other (Bld) [#/Vol] 11.3 [facility] CMPon 09-29-2023 Albumin [Mass/Vol] 4.4 g/dL 3.5 - 5.2 g/dL [facility] Albumin/Globulin [Mass ratio] 1.9 {ratio} 1.0 - 2.5 [facility] ALP [Catalytic activity/Vol] 123 U/L High 35 - 104 U/L [facility] ALT [Catalytic activity/Vol] 15 U/L 5 - 33 U/L [facility] Anion gap [Moles/Vol] 10 mmol/L 9 - 17 mmol/L [facility] AST [Catalytic activity/Vol] 21 U/L NINF - 32 U/L [facility] Bilirubin [Mass/Vol] 0.3 mg/dL 0.3 - 1 .2 mg/dL [facility] Calcium [Mass/Vol] 10.0 mg/dL 8.6 - 10. 4 mg/dL [facility] Chloride [Moles/Vol] 104 mmol/L 98 - 10 7 mmol/L [facility] CO2 [Moles/Vol] 24 mmol/L 20 - 31 mmol/L [facility] Creatinine [Mass/Vol] 0.8 mg/dL 0.5 - 0.9 mg/dL [facility] Est, Glom Filt Rate 88 - PINF [facility] Comment on above: These results are [...] 126 mg/dL High 70 - 99 mg/dL [facility] Potassium [Moles/Vol] 3.5 mmol/L Low 3.7 - 5.3 mmol/L [facility] Protein [Mass/Vol] 6.7 g/dL 6.4 - 8.3 g/dL [facility] Sodium [Moles/Vol] 138 mmol/L 135 - 144 mmol/L [facility] Urea nitrogen [Mass/Vol] 10 mg/dL 6 - 20 mg/dL [facility] Urea nitrogen/Creatinine [Mass ratio] 13 mg/mg 9 - 20 [facility] Lipaseon 09-29-2023 Lipase [Catalytic activity/Vol] 141 U/L High 13 - 60 U/L [facility] Microscopic Urinalysison Bacteria LM Ql (Urine sed) TRACE Abnormal None [facility] Epithelial cells LM.HPF (Urine sed) [#/Area] 2 TO 5 [facility] Interpretation and review of laboratory results Abnormal [facility] RBC LM.HPF (Urine sed) [#/Area] 0 TO 2 [facility] WBC LM.HPF (Urine sed) [#/Area] 0 TO 2 [facility] No Panel Informationon 09-28 Interpretation and review of laboratory results Abnormal [facility] Urinalysis with Reflex to Cu ltureon 09-29-2023 Bilirubin Ql (U) Negative NEGATIVE [facility] Clarity (U) Clear Clear [facility] Color (U) Yellow Yellow [facility] Glucose Test strip (U) [Mass/Vol] Negative NEGATIVE mg/dL [facility] Hemoglobin Auto test strip Ql (U) Negative NEGATIVE [facility] Interpretation and review of laboratory results Abnormal [facility] Ketones (U) [Mass/Vol] Negative NEGAT MATTHIAS mg/dL [facility] Leukocyte esterase Test strip Ql (U) Negative NEGATIVE [facility] Nitrite Ql (U) Negative NEGATIVE [facility] pH (U) 6.0 [pH] 5.0 - 9.0 [facility] Protein (U) [Mass/Vol] Negative NEGAT MATTHIAS mg/dL [facility] Specific gravity (U) [Rel density] High 1.010 - 1.020 [facility] Urobilinogen Qn (U) Normal 0.0 - 1. 0 EU/dL [facility] UPPER EUSon 09-08-2023 [facility] Gastroenterology Patient Name: Chioma Rainey Procedure Date: 09/08/2023 7:35 AM Date of : 1970 Admit Type: Outpatient Age: 53 Room: EUS Proc Room 01 Gender: Female Note Status: Finalized Attending MD: Sabrina Dee MD, MPH, [id number] Procedure: Upper EUS Indications: Chronic pancreatitis, Celiac [...] the (more content not included)... LAB, [facility] Radiology Study observation (narrative) [facility] Alanine aminotransferase [En zymatic activity/volume] in Serum or PlasmaOrdered By: Darrel Kellogg on 04-18-2023 ALT [Catalytic activity/Vol] 9 U/L 7-52 [facility] Albumin [Mass/volume] in Ser um or Plasma by Bromocresol green (BCG) dye binding methoOrdered By: Darrel Kellogg on 04-18-2023 Albumin BCG dye [Mass/Vol] 4.5 g/dL 3.5-5.7 [facility] Alkaline phosphatase [Enzyma tic activity/volume] in Serum or PlasmaOrdered By: Darrel Kellogg on 04-18-2023 ALP [Catalytic activity/Vol] 107 U/L 34-104 [facility] Amylase [Enzymatic activity/ volume] in Serum or PlasmaOrdered By: Darrel Kellogg on 04-18-2023 Amylase [Catalytic activity/Vol] 72 U/L 29-103 [facility] Aspartate aminotransferase [ Enzymatic activity/volume] in Serum or PlasmaOrdered By: Darrel Kellogg on 04-18-2023 AST [Catalytic activity/Vol] 14 U/L 13-39 [facility] Basophils Auto (Bld) [#/Vol] Ordered By: Darrel Kellogg on 04-18-2023 Basophils (Bld) [#/Vol] 0.1 10*3/uL 0.0-0.2 [facility] Basophils/100 WBC Auto (Bld) Ordered By: Darrel Kellogg on 04-18-2023 Basophils/100 WBC (Bld) 0.8 % . [facility] Bilirubin.direct [Mass/volum e] in Serum or PlasmaOrdered By: Darrel Kellogg on 04-18-2023 Bilirubin.direct [Mass/Vol] 0.00 mg/dL 0.03-0.18 [facility] Comment on above: If the DBIL is less than 0.1, IBIL is not able to becalculated. Bilirubin.total [Mass/volume ] in Serum or PlasmaOrdered By: Darrel Kellogg on 04-18-2023 Bilirubin [Mass/Vol] 0.3 mg/dL 0.3-1.0 [facility] Calcium [Mass/volume] in Ser um or PlasmaOrdered By: Darrel Kellogg on 04-18-2023 Calcium [Mass/Vol] 11.1 mg/dL 8.6-10.3 [facility] Carbon dioxide, total [Moles /volume] in Serum or PlasmaOrdered By: Darrel Kellogg on 04-18-2023 CO2 [Moles/Vol] 30.2 mmol/L 21.0-31.0 [facility] Chloride [Moles/volume] in S erika or PlasmaOrdered By: Darrel Kellogg on 04-18-2023 Chloride [Moles/Vol] 103 mmol/L 98-107 [facility] Creatinine [Mass/volume] in Serum or PlasmaOrdered By: Darrel Kellogg on 04-18-2023 Creatinine [Mass/Vol] 0.80 mg/dL 0.60-1.[address] [facility] Eosinophils Auto (Bld) [#/Vo l]Ordered By: Darrel Kellogg on 04-18-2023 Eosinophils (Bld) [#/Vol] 0.0 10*3/uL 0.0-0.45 [facility] Eosinophils/100 WBC Auto (Bl d)Ordered By: Darrel Kellogg on 04-18-2023 Eosinophils/100 WBC (Bld) 0.2 % . [facility] Erythrocyte distribution wid th Auto (RBC) [Ratio]Ordered By: Darrel Kellogg on 04-18-2023 Erythrocyte distribution width (RBC) [Ratio] 13.4 % 11.9-15.3 [facility] Ethanol [Mass/volume] in Ser um or PlasmaOrdered By: Darrel Kellogg on 04-18-2023 Ethanol [Mass/Vol] mg/dL [facility] Ethanol [Mass/Vol] TNP [facility] Comment on above: Test not performed Globulin Calc (S) [Mass/Vol] Ordered By: Darrel Kellogg on 04-18-2023 Globulin (S) [Mass/Vol] 2.2 g/dL [facility] Glucose [Mass/volume] in Ser um or PlasmaOrdered By: Darrel Kellogg on 04-18-2023 Glucose [Mass/Vol] 108 mg/dL 70-100 [facility] Comment on above: ADA recommended refe rence rangeRandom Glucose Reference Range is dependent on time and content of last meal. Glucose of more than 200 mg/dL in a nonstressed, ambulatory subject supports the diagnosis of Diabetes Mellitus. Hematocrit Auto (Bld) [Volum e fraction]Ordered By: Darrel Kellogg on 04-18-2023 Hematocrit (Bld) [Volume fraction] 41.6 % 34.0-46.4 [facility] Hemoglobin [Mass/volume] in BloodOrdered By: Darrel Kellogg on 04-18-2023 Hemoglobin (Bld) [Mass/Vol] 14.3 g/dL 11.8-15.4 [facility] Leukocytes [#/volume] correc aurelia for nucleated erythrocytes in Blood by Automated counOrdered By: Darrel Kellogg on 04-18-2023 WBC corrected for nucl RBC Auto (Bld) [#/Vol] 12.1 10*3/uL 3.8-11.6 [facility] Lipase [Enzymatic activity/v olume] in Serum or PlasmaOrdered By: Darrel Kellogg on 04-18-2023 Lipase [Catalytic activity/Vol] 47.0 U/L 11.0-82.0 [facility] Lymphocytes Auto (Bld) [#/Vo l]Ordered By: Darrel Kellogg on 04-18-2023 Lymphocytes (Bld) [#/Vol] 1.6 10*3/uL 1.00-4.8 [facility] Lymphocytes/100 WBC Auto (Bl d)Ordered By: Darrel Kellogg on 04-18-2023 Lymphocytes/100 WBC (Bld) 12.8 % . [facility] MCH Auto (RBC) [Entitic mass ]Ordered By: Darrel Kellogg on 04-18-2023 MCH (RBC) [Entitic mass] 32.7 pg 24.7-34.3 [facility] MCHC Auto (RBC) [Mass/Vol]Or dered By: Darrel Kellogg on 04-18-2023 MCHC (RBC) [Mass/Vol] 34.3 g/dL 32.0-35.[address] [facility] MCV Auto (RBC) [Entitic vol] Ordered By: Darrel Kellogg on 04-18-2023 MCV (RBC) [Entitic vol] 95.5 fL 80-100 [facility] Monocyte distribution width [Entitic volume] in Blood by AutomatedOrdered By: Darrel Kellogg on 04-18-2023 Monocyte distribution width Auto (Bld) [Entitic vol] 16.25 % 0.00-20.00 [facility] Monocytes Auto (Bld) [#/Vol] Ordered By: Darrel Kellogg on 04-18-2023 Monocytes (Bld) [#/Vol] 0.6 10*3/uL 0.0-0.8 [facility] Monocytes/100 WBC Auto (Bld) Ordered By: Darrel Kellogg on 04-18-2023 Monocytes/100 WBC (Bld) 5.4 % . [facility] Neutrophils Auto (Bld) [#/Vo l]Ordered By: Darrel Kellogg on 04-18-2023 Neutrophils (Bld) [#/Vol] 9.8 10*3/uL 1.8-7.7 [facility] Neutrophils/100 WBC Auto (Bl d)Ordered By: Darrel Kellogg on 04-18-2023 Neutrophils/100 WBC (Bld) 80.8 % . [facility] No Panel InformationOrdered By: Darrel Kellogg on 04-18-2023 Estimated GFR (CKD-EPI) > 60.0 mL/Min [facility] Creatinine Clearance (Chem 64.32 [facility] Nucleated erythrocytes [Pres ence] in Blood by Automated countOrdered By: Darrel Kellogg on 04-18-2023 Nucleated RBC Auto Ql (Bld) 0.0 /100{WBC} 0-0.5 [facility] Platelet mean volume Auto (B ld) [Entitic vol]Ordered By: Darrel Kellogg on 04-18-2023 Platelet mean volume (Bld) [Entitic vol] 8.1 fL 6.3-10.7 [facility] Platelets Auto (Bld) [#/Vol] Ordered By: Darrel Kellogg on 04-18-2023 Platelets (Bld) [#/Vol] 227 10*3/uL 150-450 [facility] Potassium [Moles/volume] in Serum or PlasmaOrdered By: Darrel Kellogg on 04-18-2023 Potassium [Moles/Vol] 3.2 mmol/L 3.5-5.[address] [facility] Protein [Mass/volume] in Ser um or PlasmaOrdered By: Darrel Kellogg on 04-18-2023 Protein [Mass/Vol] 6.7 g/dL 6.4-8.9 [facility] RBC Auto (Bld) [#/Vol]Ordere d By: Darrel Kellogg on 04-18-2023 RBC (Bld) [#/Vol] 4.35 10*6/uL 3.60-5.00 [facility] Serum or plasma albumin/glob ulin mass ratioOrdered By: Darrel Kellogg on 04-18-2023 Albumin/Globulin [Mass ratio] 2.0 {ratio} [facility] Serum or plasma anion gap de terminationOrdered By: Darrel Kellogg on 04-18-2023 Anion gap [Moles/Vol] 10.0 mmol/L 6.0-15.0 [facility] Serum or plasma non-glucuron idated bilirubin measurement (mass/volume)Ordered By: Darrel Kellogg on 04-18-2023 Bilirubin.indirect [Mass/Vol] 0.3 mg/dL [facility] Sodium [Moles/volume] in Ser um or PlasmaOrdered By: Darrel Kellogg on 04-18-2023 Sodium [Moles/Vol] 140 mmol/L 136-145 [facility] Urea nitrogen [Mass/volume] in Serum or PlasmaOrdered By: Darrel Kellogg on 04-18-2023 Urea nitrogen [Mass/Vol] 7 mg/dL 7-25 [facility] WBC Auto (Bld) [#/Vol]Ordere d By: Darrel Kellogg on 04-18-2023 WBC (Bld) [#/Vol] 12.1 10*3/uL 3.8-11.6 [facility] Activated partial thrombopla stin time (aPTT) in platelet poor plasma by coagulation aOrdered By: Rivera Lopez on 04-11-2023 aPTT Coag (PPP) [Time] 23.3 s 25.1-36.5 [facility] Comment on above: A hematocrit value g reater than 55% may lead to inaccurate results in coagulation testing. Patients having hematocrit values >55% require a special collection tube for coagulation studies. Please contact the laboratory at [phone] for redraw instructions. Alanine aminotransferase [En zymatic activity/volume] in Serum or PlasmaOrdered By: Rivera Lopez on 04-11-2023 ALT [Catalytic activity/Vol] 13 U/L 7-52 [facility] Albumin [Mass/volume] in Ser um or Plasma by Bromocresol green (BCG) dye binding methoOrdered By: Rivera Lopez on 04-11-2023 Albumin BCG dye [Mass/Vol] 4.5 g/dL 3.5-5.7 [facility] Alkaline phosphatase [Enzyma tic activity/volume] in Serum or PlasmaOrdered By: Rivera Lopez on 04-11-2023 ALP [Catalytic activity/Vol] 111 U/L 34-104 [facility] Aspartate aminotransferase [ Enzymatic activity/volume] in Serum or PlasmaOrdered By: Rivera Lopez on 04-11-2023 AST [Catalytic activity/Vol] 17 U/L 13-39 [facility] Automated erythrocytes count in urine sediment (number/area)Ordered By: Rivera Lopez on 04-11-2023 RBC Auto (Urine sed) [#/Area] 0-1 [HPF] 0-4 [facility] Automated leukocytes count i n urine sediment (number/area)Ordered By: Rivera Lopez on 04-11-2023 WBC Auto (Urine sed) [#/Area] 3-4 [HPF] 0-4 [facility] Basophils Auto (Bld) [#/Vol] Ordered By: Rivera Lopez on 04-11-2023 Basophils (Bld) [#/Vol] 0.1 10*3/uL 0.0-0.2 [facility] Basophils/100 WBC Auto (Bld) Ordered By: Rivera Lopez on 04-11-2023 Basophils/100 WBC (Bld) 0.4 % . [facility] Bilirubin Test strip Ql (U)O rdered By: Rivera Lopez on 04-11-2023 Bilirubin Ql (U) Negative Negative [facility] Bilirubin.direct [Mass/volum e] in Serum or PlasmaOrdered By: Rivera Lopez on 04-11-2023 Bilirubin.direct [Mass/Vol] 0.00 mg/dL 0.03-0.18 [facility] Comment on above: If the DBIL is less than 0.1, IBIL is not able to becalculated. Bilirubin.total [Mass/volume ] in Serum or PlasmaOrdered By: Rivera Lopez on 04-11-2023 Bilirubin [Mass/Vol] 0.3 mg/dL 0.3-1.0 [facility] Calcium [Mass/volume] in Ser um or PlasmaOrdered By: Rivera Lopez on 04-11-2023 Calcium [Mass/Vol] 10.3 mg/dL 8.6-10.3 [facility] Carbon dioxide, total [Moles /volume] in Serum or PlasmaOrdered By: Rivera Lopez on 04-11-2023 CO2 [Moles/Vol] 26.9 mmol/L 21.0-31.0 [facility] Chloride [Moles/volume] in S erika or PlasmaOrdered By: Rivera Lopez on 04-11-2023 Chloride [Moles/Vol] 103 mmol/L 98-107 [facility] Color Auto (U)Ordered By: Og Lopez on 04-11-2023 Color (U) Yellow Yellow [facility] Creatinine [Mass/volume] in Serum or PlasmaOrdered By: Rivera Lopez on 04-11-2023 Creatinine [Mass/Vol] 0.86 mg/dL 0.60-1.20 [facility] Eosinophils Auto (Bld) [#/Vo l]Ordered By: Rivera Lopez on 04-11-2023 Eosinophils (Bld) [#/Vol] 0.0 10*3/uL 0.0-0.45 [facility] Eosinophils/100 WBC Auto (Bl d)Ordered By: Rivera Lopez on 04-11-2023 Eosinophils/100 WBC (Bld) 0.0 % . [facility] Erythrocyte distribution wid th Auto (RBC) [Ratio]Ordered By: Rivera Lopez on 04-11-2023 Erythrocyte distribution width (RBC) [Ratio] 13.6 % 11.9-15.3 [facility] Globulin Calc (S) [Mass/Vol] Ordered By: Rivera Lopez on 04-11-2023 Globulin (S) [Mass/Vol] 2.4 g/dL [facility] Glucose [Mass/volume] in Ser um or PlasmaOrdered By: Rivera Lopez on 04-11-2023 Glucose [Mass/Vol] 121 mg/dL 70-100 [facility] Comment on above: ADA recommended refe rence rangeRandom Glucose Reference Range is dependent on time and content of last meal. Glucose of more than 200 mg/dL in a nonstressed, ambulatory subject supports the diagnosis of Diabetes Mellitus. Hematocrit Auto (Bld) [Volum e fraction]Ordered By: Rivera Lopez on 04-11-2023 Hematocrit (Bld) [Volume fraction] 41.3 % 34.0-46.4 [facility] Hemoglobin [Mass/volume] in BloodOrdered By: Rivera Lopez on 04-11-2023 Hemoglobin (Bld) [Mass/Vol] 13.7 g/dL 11.8-15.4 [facility] INR in Platelet poor plasma by Coagulation assayOrdered By: Rivera Lopez on 04-11-2023 INR Coag (PPP) [Relative time] 1.0 {INR} [facility] Comment on above: INR Therapeutic [...] on 04-11-2023 Ketones (U) [Mass/Vol] Negative Negative [facility] - UrinalysisOrder ed By: Rivera Lopez on 04-11-2023 Hyaline casts LM Ql (Urine sed) None seen [LPF] 0-8 [facility] Leukocytes [#/volume] correc aurelia for nucleated erythrocytes in Blood by Automated counOrdered By: Rivera Lopez on 04-11-2023 WBC corrected for nucl RBC Auto (Bld) [#/Vol] 13.9 10*3/uL 3.8-11.6 [facility] Lipase [Enzymatic activity/v olume] in Serum or PlasmaOrdered By: Rivera Lopez on 04-11-2023 Lipase [Catalytic activity/Vol] 26.0 U/L 11.0-82.0 [facility] Lymphocytes Auto (Bld) [#/Vo l]Ordered By: Rivera Lopez on 04-11-2023 Lymphocytes (Bld) [#/Vol] 1.1 10*3/uL 1.00-4.8 [facility] Lymphocytes/100 WBC Auto (Bl d)Ordered By: Rivera Lopez on 04-11-2023 Lymphocytes/100 WBC (Bld) 8.1 % . [facility] MCH Auto (RBC) [Entitic mass ]Ordered By: Rivera Lopez on 04-11-2023 MCH (RBC) [Entitic mass] 32.2 pg 24.7-34.3 [facility] MCHC Auto (RBC) [Mass/Vol]Or dered By: Rivera Lopez on 04-11-2023 MCHC (RBC) [Mass/Vol] 33.2 g/dL 32.0-35.[address] [facility] MCV Auto (RBC) [Entitic vol] Ordered By: Rivera Lopez on 04-11-2023 MCV (RBC) [Entitic vol] 96.8 fL 80-100 [facility] Monocyte distribution width [Entitic volume] in Blood by AutomatedOrdered By: Rivera Lopez on 04-11-2023 Monocyte distribution width Auto (Bld) [Entitic vol] 17.01 % 0.00-20.00 [facility] Monocytes Auto (Bld) [#/Vol] Ordered By: Rivera Lopez on 04-11-2023 Monocytes (Bld) [#/Vol] 0.6 10*3/uL 0.0-0.8 [facility] Monocytes/100 WBC Auto (Bld) Ordered By: Rivera Lopez on 04-11-2023 Monocytes/100 WBC (Bld) 4.3 % . [facility] Neutrophils Auto (Bld) [#/Vo l]Ordered By: Rivera Lopez on 04-11-2023 Neutrophils (Bld) [#/Vol] 12.1 10*3/uL 1.8-7.7 [facility] Neutrophils/100 WBC Auto (Bl d)Ordered By: Rivera Lopez on 04-11-2023 Neutrophils/100 WBC (Bld) 87.2 % . [facility] Nitrite Test strip Ql (U)Ord ered By: Rivera Lopez on 04-11-2023 Nitrite Ql (U) Negative Negative [facility] No Panel InformationOrdered By: Rivera Lopez on 04-11-2023 Estimated GFR (CKD-EPI) > 60.0 mL/Min [facility] Creatinine Clearance (Chem 59.83 [facility] Nucleated erythrocytes [Pres ence] in Blood by Automated countOrdered By: Rivera Lopez on 04-11-2023 Nucleated RBC Auto Ql (Bld) 0.0 /100{WBC} 0-0.5 [facility] Platelet mean volume Auto (B ld) [Entitic vol]Ordered By: Rivera Lopez on 04-11-2023 Platelet mean volume (Bld) [Entitic vol] 7.7 fL 6.3-10.7 [facility] Platelets Auto (Bld) [#/Vol] Ordered By: Rivera Lopez on 04-11-2023 Platelets (Bld) [#/Vol] 262 10*3/uL 150-450 [facility] Potassium [Moles/volume] in Serum or PlasmaOrdered By: Rivera Lopez on 04-11-2023 Potassium [Moles/Vol] 4.0 mmol/L 3.5-5.[address] [facility] Protein Auto test strip (U) [Mass/Vol]Ordered By: Rivera Lopez on 04-11-2023 Protein (U) [Mass/Vol] Negative Negative [facility] Protein [Mass/volume] in Ser um or PlasmaOrdered By: Rivera Lopez on 04-11-2023 Protein [Mass/Vol] 6.9 g/dL 6.4-8.9 [facility] Prothrombin time (PT)Ordered By: Rivera Lopez on 04-11-2023 PT Coag (PPP) [Time] 11.2 s 9.0-12.9 [facility] Comment on above: A hematocrit value g reater than 55% may lead to inaccurate results in coagulation testing. Patients having hematocrit values >55% require a special collection tube for coagulation studies. Please contact the laboratory at [phone] for redraw instructions. RBC Auto (Bld) [#/Vol]Ordere d By: Rivera Lopez on 04-11-2023 RBC (Bld) [#/Vol] 4.27 10*6/uL 3.60-5.00 [facility] Serum or plasma albumin/glob ulin mass ratioOrdered By: Rivera Lopez on 04-11-2023 Albumin/Globulin [Mass ratio] 1.9 {ratio} [facility] Serum or plasma anion gap de terminationOrdered By: Rivera Lopez on 04-11-2023 Anion gap [Moles/Vol] 14.1 mmol/L 6.0-15.0 [facility] Serum or plasma non-glucuron idated bilirubin measurement (mass/volume)Ordered By: Rivera Lopez on 04-11-2023 Bilirubin.indirect [Mass/Vol] 0.3 mg/dL [facility] Sodium [Moles/volume] in Ser um or PlasmaOrdered By: Rivera Lopez on 04-11-2023 Sodium [Moles/Vol] 140 mmol/L 136-145 [facility] Specific gravity Auto test s trip (U) [Rel density]Ordered By: Rivera Lopez on 04-11-2023 Specific gravity (U) [Rel density] > 1.050 1.001-1.03 0 [facility] Squamous epithelial cells de tection in urine sediment by light microscopyOrdered By: Rivera Lopez on 04-11-2023 Epithelial cells.squamous LM Ql (Urine sed) 0-1 [HPF] 0-2 [facility] Urea nitrogen [Mass/volume] in Serum or PlasmaOrdered By: Rivera Lopez on 04-11-2023 Urea nitrogen [Mass/Vol] 5 mg/dL 7 [facility] Urine bacteria detection by automated methodOrdered By: Rivera Lopez on 04-11-2023 Bacteria Auto Ql (U) None seen None Seen [facility] Urine clarity by refractomet ry automatedOrdered By: Rivera Lopez on 04-11-2023 Clarity Refractometry automated (U) Turbid Clear [facility] Urine glucose measurement by automated test strip (mass/volume)Ordered By: Rivera Lopez on 04-11-2023 Glucose Auto test strip (U) [Mass/Vol] Normal mg/dL Normal [facility] Urine hemoglobin detection b y automated test stripOrdered By: Rivera Lopez on 04-11-2023 Hemoglobin Auto test strip Ql (U) Negative Negative [facility] Urine leukocyte esterase det ection by automated test stripOrdered By: Rivera Lopez on 04-11-2023 Leukocyte esterase Auto test strip Ql (U) Negative Negative [facility] Urobilinogen Auto test strip (U) [Mass/Vol]Ordered By: Rivera Lopez on 04-11-2023 Urobilinogen (U) [Mass/Vol] Normal mg/dL Normal [facility] WBC Auto (Bld) [#/Vol]Ordere d By: Rivera Lopez on 04-11-2023 WBC (Bld) [#/Vol] 13.9 10*3/uL 3.8-11.6 [facility] pH Auto test strip (U)Ordere d By: Rivera Lopez on 04-11-2023 pH (U) 8.0 [pH] 5.0-9.0 [facility] Alanine aminotransferase [En zymatic activity/volume] in Serum or PlasmaOrdered By: Diomedes Posadas on 04-02-2023 ALT [Catalytic activity/Vol] 11 U/L 7-52 [facility] Albumin [Mass/volume] in Ser um or Plasma by Bromocresol green (BCG) dye binding methoOrdered By: Diomedes Posadas on 04-02-2023 Albumin BCG dye [Mass/Vol] 4.2 g/dL 3.5-5.7 [facility] Alkaline phosphatase [Enzyma tic activity/volume] in Serum or PlasmaOrdered By: Diomedes Posadas on 04-02-2023 ALP [Catalytic activity/Vol] 101 U/L 34-104 [facility] Aspartate aminotransferase [ Enzymatic activity/volume] in Serum or PlasmaOrdered By: Diomedes Posadas on 04-02-2023 AST [Catalytic activity/Vol] 21 U/L 13-39 [facility] Basophils Auto (Bld) [#/Vol] Ordered By: Diomedes Posadas on 04-02-2023 Basophils (Bld) [#/Vol] 0.0 10*3/uL 0.0-0.2 [facility] Basophils/100 WBC Auto (Bld) Ordered By: Diomedes Posadas on 04-02-2023 Basophils/100 WBC (Bld) 0.2 % . [facility] Bilirubin Test strip Ql (U)O rdered By: Diomedes Posadas on 04-02-2023 Bilirubin Ql (U) Negative Negative [facility] Bilirubin.total [Mass/volume ] in Serum or PlasmaOrdered By: Diomedes Posadas on 04-02-2023 Bilirubin [Mass/Vol] 0.3 mg/dL 0.3-1.0 [facility] Calcium [Mass/volume] in Ser um or PlasmaOrdered By: Diomedes Posadas on 04-02-2023 Calcium [Mass/Vol] 9.7 mg/dL 8.6-10.3 [facility] Carbon dioxide, total [Moles /volume] in Serum or PlasmaOrdered By: Diomedes Posadas on 04-02-2023 CO2 [Moles/Vol] 26.3 mmol/L 21.0-31.0 [facility] Chloride [Moles/volume] in S erika or PlasmaOrdered By: Diomedes Posadas on 04-02-2023 Chloride [Moles/Vol] 106 mmol/L 98-107 [facility] Color Auto (U)Ordered By: Reshma shaycarito Posadas on 04-02-2023 Color (U) Yellow Yellow [facility] Creatinine [Mass/volume] in Serum or PlasmaOrdered By: Diomedes Posadas on 04-02-2023 Creatinine [Mass/Vol] 0.82 mg/dL 0.60-1.[address] [facility] Eosinophils Auto (Bld) [#/Vo l]Ordered By: Diomedes Posadas on 04-02-2023 Eosinophils (Bld) [#/Vol] 0.1 10*3/uL 0.0-0.45 [facility] Eosinophils/100 WBC Auto (Bl d)Ordered By: Diomedes Posadas on 04-02-2023 Eosinophils/100 WBC (Bld) 1.7 % . [facility] Erythrocyte distribution wid th Auto (RBC) [Ratio]Ordered By: Diomedes Posadas on 04-02-2023 Erythrocyte distribution width (RBC) [Ratio] 13.3 % 11.9-15.3 [facility] Fibrin D-dimer [Presence] in Platelet poor plasma by Latex agglutinationOrdered By: Diomedes Posadas on 04-02-2023 Fibrin D-dimer LA Ql (PPP) < 200 ng/mL 0-243 [facility] Comment on above: The reference [...] coagulation studies. Please contact the laboratory at [phone] for redraw instructions. Globulin Calc (S) [Mass/Vol] Ordered By: Diomedes Posadas on 04-02-2023 Globulin (S) [Mass/Vol] 2.4 g/dL [facility] Glucose [Mass/volume] in Ser um or PlasmaOrdered By: Diomedes Posadas on 04-02-2023 Glucose [Mass/Vol] 90 mg/dL 70-100 [facility] Comment on above: ADA recommended refe rence rangeRandom Glucose Reference Range is dependent on time and content of last meal. Glucose of more than 200 mg/dL in a nonstressed, ambulatory subject supports the diagnosis of Diabetes Mellitus. Hematocrit Auto (Bld) [Volum e fraction]Ordered By: Diomedes Posadas on 04-02-2023 Hematocrit (Bld) [Volume fraction] 41.8 % 34.0-46.4 [facility] Hemoglobin [Mass/volume] in BloodOrdered By: Diomedes Posadas on 04-02-2023 Hemoglobin (Bld) [Mass/Vol] 14.2 g/dL 11.8-15.4 [facility] Ketones Auto test strip (U) [Mass/Vol]Ordered By: Diomedes Posadas on 04-02-2023 Ketones (U) [Mass/Vol] Negative Negative [facility] Leukocytes [#/volume] correc aurelia for nucleated erythrocytes in Blood by Automated counOrdered By: Diomedes Posadas on 04-02-2023 WBC corrected for nucl RBC Auto (Bld) [#/Vol] 6.2 10*3/uL 3.8-11.6 [facility] Lipase [Enzymatic activity/v olume] in Serum or PlasmaOrdered By: Diomedes Posadas on 04-02-2023 Lipase [Catalytic activity/Vol] 186.0 U/L 11.0-82.0 [facility] Lymphocytes Auto (Bld) [#/Vo l]Ordered By: Diomedes Posadas on 04-02-2023 Lymphocytes (Bld) [#/Vol] 1.8 10*3/uL 1.00-4.8 [facility] Lymphocytes/100 WBC Auto (Bl d)Ordered By: Diomedes Posadas on 04-02-2023 Lymphocytes/100 WBC (Bld) 29.2 % . [facility] MCH Auto (RBC) [Entitic mass ]Ordered By: Diomedes Posadas on 04-02-2023 MCH (RBC) [Entitic mass] 33.1 pg 24.7-34.3 [facility] MCHC Auto (RBC) [Mass/Vol]Or dered By: Diomedes Posadas on 04-02-2023 MCHC (RBC) [Mass/Vol] 34.0 g/dL 32.0-35.0 [facility] MCV Auto (RBC) [Entitic vol] Ordered By: Diomedes Posadas on 04-02-2023 MCV (RBC) [Entitic vol] 97.4 fL 80-100 [facility] Monocyte distribution width [Entitic volume] in Blood by AutomatedOrdered By: Diomedes Posadas on 04-02-2023 Monocyte distribution width Auto (Bld) [Entitic vol] 17.36 % 0.00-20.00 [facility] Monocytes Auto (Bld) [#/Vol] Ordered By: Diomedes Posadas on 04-02-2023 Monocytes (Bld) [#/Vol] 0.6 10*3/uL 0.0-0.8 [facility] Monocytes/100 WBC Auto (Bld) Ordered By: Diomedes Posadas on 04-02-2023 Monocytes/100 WBC (Bld) 9.8 % . [facility] Neutrophils Auto (Bld) [#/Vo l]Ordered By: Diomedes Posadas on 04-02-2023 Neutrophils (Bld) [#/Vol] 3.6 10*3/uL 1.8-7.7 [facility] Neutrophils/100 WBC Auto (Bl d)Ordered By: Diomedes Posadas on 04-02-2023 Neutrophils/100 WBC (Bld) 59.1 % . [facility] Nitrite Test strip Ql (U)Ord ered By: Diomedes Posadas on 04-02-2023 Nitrite Ql (U) Negative Negative [facility] No Panel InformationOrdered By: Diomedes Posadas on 04-02-2023 Estimated GFR (CKD-EPI) > 60.0 mL/Min [facility] Creatinine Clearance (Chem 62.75 [facility] Nucleated erythrocytes [Pres ence] in Blood by Automated countOrdered By: Diomedes Posadas on 04-02-2023 Nucleated RBC Auto Ql (Bld) 0.1 /100{WBC} 0-0.5 [facility] Platelet mean volume Auto (B ld) [Entitic vol]Ordered By: Diomedes Posadas on 04-02-2023 Platelet mean volume (Bld) [Entitic vol] 8.3 fL 6.3-10.7 [facility] Platelets Auto (Bld) [#/Vol] Ordered By: Diomedes Posadas on 04-02-2023 Platelets (Bld) [#/Vol] 236 10*3/uL 150-450 [facility] Potassium [Moles/volume] in Serum or PlasmaOrdered By: Diomedes Posadas on 04-02-2023 Potassium [Moles/Vol] 4.3 mmol/L 3.5-5.[address] [facility] Protein Auto test strip (U) [Mass/Vol]Ordered By: Diomedes Posadas on 04-02-2023 Protein (U) [Mass/Vol] Negative Negative [facility] Protein [Mass/volume] in Ser um or PlasmaOrdered By: Diomedes Posadas on 04-02-2023 Protein [Mass/Vol] 6.6 g/dL 6.4-8.9 [facility] RBC Auto (Bld) [#/Vol]Ordere d By: Diomedes Posadas on 04-02-2023 RBC (Bld) [#/Vol] 4.29 10*6/uL 3.60-5.00 [facility] Serum or plasma albumin/glob ulin mass ratioOrdered By: Diomedes Posadas on 04-02-2023 Albumin/Globulin [Mass ratio] 1.8 {ratio} [facility] Serum or plasma anion gap de terminationOrdered By: Diomedes Posadas on 04-02-2023 Anion gap [Moles/Vol] TNP [facility] Comment on above: Test not performed Sodium [Moles/volume] in Ser um or PlasmaOrdered By: Diomedes Posadas on 04-02-2023 Sodium [Moles/Vol] 137 mmol/L 136-145 [facility] Specific gravity Auto test s trip (U) [Rel density]Ordered By: Diomedes Posadas on 04-02-2023 Specific gravity (U) [Rel density] 1.022 1.001-1.03 0 [facility] Troponin I.cardiac [Mass/vol ume] in Serum or Plasma by Detection limit <= 0.01 ng/Ordered By: Diomedes Posadas on 04-02-2023 Troponin I.cardiac DL <= 0.01 ng/mL [Mass/Vol] 2.6 pg/mL 0.0-15.0 [facility] Urea nitrogen [Mass/volume] in Serum or PlasmaOrdered By: Diomedes Posadas on 04-02-2023 Urea nitrogen [Mass/Vol] 7 mg/dL 09-30 [facility] Urine clarity by refractomet ry automatedOrdered By: Diomedes Posadas on 04-02-2023 Clarity Refractometry automated (U) Clear Clear [facility] Urine glucose measurement by automated test strip (mass/volume)Ordered By: Diomedes Posadas on 04-02-2023 Glucose Auto test strip (U) [Mass/Vol] Normal mg/dL Normal [facility] Urine hemoglobin detection b y automated test stripOrdered By: Diomedes Posadas on 04-02-2023 Hemoglobin Auto test strip Ql (U) Negative Negative [facility] Urine leukocyte esterase det ection by automated test stripOrdered By: Diomedes Posadas on 04-02-2023 Leukocyte esterase Auto test strip Ql (U) Negative Negative [facility] Urobilinogen Auto test strip (U) [Mass/Vol]Ordered By: Diomedes Posadas on 04-02-2023 Urobilinogen (U) [Mass/Vol] Normal mg/dL Normal [facility] WBC Auto (Bld) [#/Vol]Ordere d By: Diomedes Posadas on 04-02-2023 WBC (Bld) [#/Vol] 6.2 10*3/uL 3.8-11.6 [facility] pH Auto test strip (U)Ordere d By: Diomedes Posadas on 04-02-2023 pH (U) 5.5 [pH] 5.0-9.0 [facility] Alanine aminotransferase [En zymatic activity/volume] in Serum or PlasmaOrdered By: Diomedes Posadas on 11-09-2022 ALT [Catalytic activity/Vol] 12 U/L 7-52 [facility] Albumin [Mass/volume] in Ser um or Plasma by Bromocresol green (BCG) dye binding methoOrdered By: Diomedes Posadas on 11-09-2022 Albumin BCG dye [Mass/Vol] 4.4 g/dL 3.5-5.7 [facility] Alkaline phosphatase [Enzyma tic activity/volume] in Serum or PlasmaOrdered By: Diomedes Posadas on 11-09-2022 ALP [Catalytic activity/Vol] 126 U/L 34-104 [facility] Aspartate aminotransferase [ Enzymatic activity/volume] in Serum or PlasmaOrdered By: Diomedes Posadas on 11-09-2022 AST [Catalytic activity/Vol] 17 U/L 13-39 [facility] Basophils Auto (Bld) [#/Vol] Ordered By: Diomedes Posadas on 11-09-2022 Basophils (Bld) [#/Vol] 0.1 10*3/uL 0.0-0.2 [facility] Basophils/100 WBC Auto (Bld) Ordered By: Diomedes Posadas on 11-09-2022 Basophils/100 WBC (Bld) 0.9 % . [facility] Bilirubin Test strip Ql (U)O rdered By: Diomedes Posadas on 11-09-2022 Bilirubin Ql (U) Negative Negative [facility] Bilirubin.total [Mass/volume ] in Serum or PlasmaOrdered By: Diomedes Posadas on 11-09-2022 Bilirubin [Mass/Vol] 0.3 mg/dL 0.3-1.0 [facility] Calcium [Mass/volume] in Ser um or PlasmaOrdered By: Diomedes Posadas on 11-09-2022 Calcium [Mass/Vol] 9.7 mg/dL 8.6-10.3 [facility] Carbon dioxide, total [Moles /volume] in Serum or PlasmaOrdered By: Diomedes Posadas on 11-09-2022 CO2 [Moles/Vol] 28.6 mmol/L 21.0-31.0 [facility] Chloride [Moles/volume] in S erika or PlasmaOrdered By: Diomedes Posadas on 11-09-2022 Chloride [Moles/Vol] 107 mmol/L 98-107 [facility] Color Auto (U)Ordered By: Reshma Posadas on 11-09-2022 Color (U) Yellow Yellow [facility] Creatinine [Mass/volume] in Serum or PlasmaOrdered By: Diomedes Posadas on 11-09-2022 Creatinine [Mass/Vol] 0.78 mg/dL 0.60-1.[address] [facility] Eosinophils Auto (Bld) [#/Vo l]Ordered By: Diomedes Posadas on 11-09-2022 Eosinophils (Bld) [#/Vol] 0.1 10*3/uL 0.0-0.45 [facility] Eosinophils/100 WBC Auto (Bl d)Ordered By: Diomedes Posadas on 11-09-2022 Eosinophils/100 WBC (Bld) 1.6 % . [facility] Erythrocyte distribution wid th Auto (RBC) [Ratio]Ordered By: Diomedes Posadas on 11-09-2022 Erythrocyte distribution width (RBC) [Ratio] 13.6 % 11.9-15.3 [facility] Globulin Calc (S) [Mass/Vol] Ordered By: Diomedes Posadas on 11-09-2022 Globulin (S) [Mass/Vol] 2.7 g/dL [facility] Glucose [Mass/volume] in Ser um or PlasmaOrdered By: Diomedes Posadas on 11-09-2022 Glucose [Mass/Vol] 96 mg/dL 70-100 [facility] Comment on above: ADA recommended refe rence rangeRandom Glucose Reference Range is dependent on time and content of last meal. Glucose of more than 200 mg/dL in a nonstressed, ambulatory subject supports the diagnosis of Diabetes Mellitus. Hematocrit Auto (Bld) [Volum e fraction]Ordered By: Diomedes Posadas on 11-09-2022 Hematocrit (Bld) [Volume fraction] 44.4 % 34.0-46.4 [facility] Hemoglobin [Mass/volume] in BloodOrdered By: Diomedes Posadas on 11-09-2022 Hemoglobin (Bld) [Mass/Vol] 14.9 g/dL 11.8-15.4 [facility] Ketones Auto test strip (U) [Mass/Vol]Ordered By: Diomedes Posadas on 11-09-2022 Ketones (U) [Mass/Vol] Negative Negative [facility] Leukocytes [#/volume] correc aurelia for nucleated erythrocytes in Blood by Automated counOrdered By: Diomedes Posadas on 11-09-2022 WBC corrected for nucl RBC Auto (Bld) [#/Vol] 9.3 10*3/uL 3.8-11.6 [facility] Lipase [Enzymatic activity/v olume] in Serum or PlasmaOrdered By: Diomedes Posadas on 11-09-2022 Lipase [Catalytic activity/Vol] 78.0 U/L 11.0-82.0 [facility] Lymphocytes Auto (Bld) [#/Vo l]Ordered By: Diomedes Posadas on 11-09-2022 Lymphocytes (Bld) [#/Vol] 2.2 10*3/uL 1.00-4.8 [facility] Lymphocytes/100 WBC Auto (Bl d)Ordered By: Diomedes Posadas on 11-09-2022 Lymphocytes/100 WBC (Bld) 24.0 % . [facility] MCH Auto (RBC) [Entitic mass ]Ordered By: Diomedes Posadas on 11-09-2022 MCH (RBC) [Entitic mass] 32.8 pg 24.7-34.3 [facility] MCHC Auto (RBC) [Mass/Vol]Or dered By: Diomedes Posadas on 11-09-2022 MCHC (RBC) [Mass/Vol] 33.4 g/dL 32.0-35.[address] [facility] MCV Auto (RBC) [Entitic vol] Ordered By: Diomedes Posadas on 11-09-2022 MCV (RBC) [Entitic vol] 98.2 fL 80-100 [facility] Monocyte distribution width [Entitic volume] in Blood by AutomatedOrdered By: Diomedes Posadas on 11-09-2022 Monocyte distribution width Auto (Bld) [Entitic vol] 18.76 % 0.00-20.00 [facility] Monocytes Auto (Bld) [#/Vol] Ordered By: Diomedes Posadas on 11-09-2022 Monocytes (Bld) [#/Vol] 0.8 10*3/uL 0.0-0.8 [facility] Monocytes/100 WBC Auto (Bld) Ordered By: Diomedes Posadas on 11-09-2022 Monocytes/100 WBC (Bld) 8.1 % . [facility] Neutrophils Auto (Bld) [#/Vo l]Ordered By: Diomedes Posadas on 11-09-2022 Neutrophils (Bld) [#/Vol] 6.1 10*3/uL 1.8-7.7 [facility] Neutrophils/100 WBC Auto (Bl d)Ordered By: Diomedes Posadas on 11-09-2022 Neutrophils/100 WBC (Bld) 65.4 % . [facility] Nitrite Test strip Ql (U)Ord ered By: Diomedes Posadas on 11-09-2022 Nitrite Ql (U) Negative Negative [facility] No Panel InformationOrdered By: Diomedes Posadas on 11-09-2022 Estimated GFR (CKD-EPI) > 60.0 mL/Min [facility] Creatinine Clearance (Chem 69.00 [facility] Nucleated erythrocytes [Pres ence] in Blood by Automated countOrdered By: Diomedes Posadas on 11-09-2022 Nucleated RBC Auto Ql (Bld) 0.0 /100{WBC} 0-0.5 [facility] Platelet mean volume Auto (B ld) [Entitic vol]Ordered By: Diomedes Posadas on 11-09-2022 Platelet mean volume (Bld) [Entitic vol] 8.3 fL 6.3-10.7 [facility] Platelets Auto (Bld) [#/Vol] Ordered By: Diomedes Posadas on 11-09-2022 Platelets (Bld) [#/Vol] 246 10*3/uL 150-450 [facility] Potassium [Moles/volume] in Serum or PlasmaOrdered By: Diomedes Posadas on 11-09-2022 Potassium [Moles/Vol] 3.7 mmol/L 3.5-5.[address] [facility] Protein Auto test strip (U) [Mass/Vol]Ordered By: Diomedes Posadas on 11-09-2022 Protein (U) [Mass/Vol] Negative Negative [facility] Protein [Mass/volume] in Ser um or PlasmaOrdered By: Diomedes Posadas on 11-09-2022 Protein [Mass/Vol] 7.1 g/dL 6.4-8.9 [facility] RBC Auto (Bld) [#/Vol]Ordere d By: Diomedes Posadas on 11-09-2022 RBC (Bld) [#/Vol] 4.52 10*6/uL 3.60-5.00 [facility] Serum or plasma albumin/glob ulin mass ratioOrdered By: Diomedes Posadas on 11-09-2022 Albumin/Globulin [Mass ratio] 1.6 {ratio} [facility] Serum or plasma anion gap de terminationOrdered By: Diomedes Posadas on 11-09-2022 Anion gap [Moles/Vol] 8.1 mmol/L 6.0-15.[address] [facility] Sodium [Moles/volume] in Ser um or PlasmaOrdered By: Diomedes Posadas on 11-09-2022 Sodium [Moles/Vol] 140 mmol/L 136-145 [facility] Specific gravity Auto test s trip (U) [Rel density]Ordered By: Diomedes Posadas on 11-09-2022 Specific gravity (U) [Rel density] 1.012 1.001-1.03 0 [facility] Troponin I.cardiac [Mass/vol ume] in Serum or Plasma by Detection limit <= 0.01 ng/Ordered By: Diomedes Posadas on 11-09-2022 Troponin I.cardiac DL <= 0.01 ng/mL [Mass/Vol] 3.0 pg/mL 0.0-15.0 [facility] Urea nitrogen [Mass/volume] in Serum or PlasmaOrdered By: Diomedes Posadas on 11-09-2022 Urea nitrogen [Mass/Vol] 6 mg/dL 7-25 [facility] Urine clarity by refractomet ry automatedOrdered By: Diomedes Posadas on 11-09-2022 Clarity Refractometry automated (U) Clear Clear [facility] Urine glucose measurement by automated test strip (mass/volume)Ordered By: Diomedes Posadas on 11-09-2022 Glucose Auto test strip (U) [Mass/Vol] Normal mg/dL Normal [facility] Urine hemoglobin detection b y automated test stripOrdered By: Diomedes Posadas on 11-09-2022 Hemoglobin Auto test strip Ql (U) Negative Negative [facility] Urine leukocyte esterase det ection by automated test stripOrdered By: Diomedes Posadas on 11-09-2022 Leukocyte esterase Auto test strip Ql (U) Negative Negative [facility] Urobilinogen Auto test strip (U) [Mass/Vol]Ordered By: Diomedes Posadas on 11-09-2022 Urobilinogen (U) [Mass/Vol] Normal mg/dL Normal [facility] WBC Auto (Bld) [#/Vol]Ordere d By: Diomedes Posadas on 11-09-2022 WBC (Bld) [#/Vol] 9.3 10*3/uL 3.8-11.6 [facility] pH Auto test strip (U)Ordere d By: Diomedes Posadas on 11-09-2022 pH (U) 5.5 [pH] 5.0-9.0 [facility] UPPER EUSon 08-12-2022 [facility] Gastroenterology Patient Name: Chioma Rainey Procedure Date: 08/12/2022 11:09 AM Date of : 1970 Admit Type: Outpatient Age: 52 Room: EUS Proc Room 01 Gender: Female Note Status: Finalized Attending MD: Sabrina Dee MD, MPH, [id number] Procedure: Upper EUS Indications: Chronic pancreatitis, Epigastric abdominal pain, Celiac plexus block for pain secondary to chronic pancreatitis, Dysphagia, Follow-up of esophageal stenosis, For therapy of esophageal stenosis Providers: Sabrina Dee MD, MPH (Doctor), Kolby Gifford RN (Nurse), Elba Faustin (Nurse), Mary Gaviria Fish Skinning Machine Feeder (Fish Skinning Machine Feeder) Referring MD: Alexander Nichols MD (Referring MD) [...] by the physician, the nurse and the sleeve setter lockstitch in the procedure room. Mental Status Examination: [...] abnor (more content not included)... LAB, [facility] Radiology Study observation (narrative) [facility] AMYLASEon 06-13-2022 Amylase [Catalytic activity/Vol] 92 U/L Normal 25-115 [facility] Comment on above: Performed By: #### L IPA, CMP, CRP, NAT #### [facility] [address] [place] [address] Dr. Keturah Fisher CBC AUTO DIFFon 06-13-2022 BASO # 0.1 103/ul Normal 0.0-0.1 [facility] Comment on above: Performed By: #### L IPA, CMP, CRP, NAT #### [facility] [address] [place] [address] Dr. Keturah Fisher Basophils/100 WBC (Bld) 0.7 % Normal 0.2-2.0 [facility] Comment on above: Performed By: #### L IPA, CMP, CRP, NAT #### [facility] [address] [place] [address] Dr. Keturah Fisher EO # 0.1 103/ul Normal 0.0-0.7 [facility] Comment on above: Performed By: #### L IPA, CMP, CRP, NAT #### [facility] [address] [place] [address] Dr. Keturah Fisher Eosinophils/100 WBC (Bld) 1.1 % Normal 0.9-7.0 [facility] Comment on above: Performed By: #### L IPA, CMP, CRP, NAT #### [facility] [address] [place] [address] Dr. Keturah Fisher Erythrocyte distribution width (RBC) [Ratio] 13.0 % Normal 11.0-15.0 [facility] Comment on above: Performed By: #### L IPA, CMP, CRP, NAT #### [facility] [address] [place] [address] Dr. Keturah Fisher Hematocrit (Bld) [Volume fraction] 40.5 % Normal 36.0-48.0 [facility] Comment on above: Performed By: #### L IPA, CMP, CRP, NAT #### [facility] [address] [place] [address] Dr. Keturah Fisher Hemoglobin (Bld) [Mass/Vol] 13.9 g/dL Normal 12.0-16.0 [facility] Comment on above: Performed By: #### L IPA, CMP, CRP, NAT #### [facility] [address] [place] [address] Dr. Keturah Fisher IG # 0.03 10e3/ul Normal 0.00-0.03 [facility] Comment on above: Performed By: #### L IPA, CMP, CRP, NAT #### [facility] [address] [place] [address] Dr. Keturah Fisher IG % 0.3 % Normal 0.0-0.5 [facility] Comment on above: Performed By: #### L IPA, CMP, CRP, NAT #### [facility] [address] [place] [address] Dr. Keturah Fisher LYMPH # 2.9 103/ul Normal 1.2-3.8 [facility] Comment on above: Performed By: #### L IPA, CMP, CRP, NAT #### [facility] [address] [place] [address] Dr. Keturah Fisher Lymphocytes/100 WBC (Bld) 25.0 % Normal 20.5-60.0 [facility] Comment on above: Performed By: #### L IPA, CMP, CRP, NAT #### [facility] [address] [place] [address] Dr. Keturah Fisher MANUAL DIFF REQ NO Normal [facility] Comment on above: Performed By: #### L IPA, CMP, CRP, NAT #### [facility] [address] [place] [address] Dr. Keturah Fisher MCH (RBC) [Entitic mass] 33.3 pg Normal 26.7-34.0 [facility] Comment on above: Performed By: #### L IPA, CMP, CRP, NAT #### [facility] [address] [place] [address] Dr. Keturah Fisher MCHC (RBC) [Mass/Vol] 34.3 g/dL Normal 29.9-35.2 [facility] Comment on above: Performed By: #### L IPA, CMP, CRP, NAT #### [facility] [address] [place] [address] Dr. Keturah Fisher MCV (RBC) [Entitic vol] 96.9 fL Normal 81.0-99.0 [facility] Comment on above: Performed By: #### L IPA, CMP, CRP, NAT #### [facility] [address] [place] [address] Dr. Keturah Fisher MONO # 0.7 103/ul Normal 0.3-0.8 [facility] Comment on above: Performed By: #### L IPA, CMP, CRP, NAT #### [facility] [address] [place] [address] Dr. Keturah Fisher Monocytes/100 WBC (Bld) 5.6 % Normal 1.7-12.0 [facility] Comment on above: Performed By: #### L IPA, CMP, CRP, NAT #### [facility] [address] [place] [address] Dr. Keturah Fisher NEUT # 7.8 103/ul Critically high 1.4-6.5 [facility] Comment on above: Performed By: #### L IPA, CMP, CRP, NAT #### [facility] [address] [place] [address] Dr. Keturah Fisher Neutrophils/100 WBC (Bld) 67.3 % Normal 43.0-75.0 [facility] Comment on above: Performed By: #### L IPA, CMP, CRP, NAT #### [facility] [address] [place] [address] Dr. Keturah Fisher Platelet mean volume (Bld) [Entitic vol] 9.5 fL Normal 9.5-13.5 [facility] Comment on above: Performed By: #### L IPA, CMP, CRP, NAT #### [facility] [address] [address] [address] Keturah Fisher PLT 227 103/ul Normal 150-450 [facility] Comment on above: Performed By: #### L IPA, CMP, CRP, NAT #### [facility] [address] [place] [address] Dr. Keturah Fisher RBC 4.18 106/ul Critically low 4.20-5.40 [facility] Comment on above: Performed By: #### L IPA, CMP, CRP, NAT #### [facility] [address] [place] [address] Dr. Keturah Fisher WBC 11.5 103/ul Critically high 4.0-11.0 [facility] Comment on above: Performed By: #### L IPA, CMP, CRP, NAT #### [facility] [address] [place] [address] Dr. Keturah Fisher LIPASEon 06-13-2022 Lipase [Catalytic activity/Vol] 168.0 U/L Normal 73.0-393.0 [facility] Comment on above: Performed By: #### L IPA, CMP, CRP, NAT #### [facility] [address] [place] [address] Dr. Keturah Fisher PROF 14(COMP METB)on 023 Albumin [Mass/Vol] 3.6 g/dL Normal 3.4-5.0 [facility] Comment on above: Performed By: #### L IPA, CMP, CRP, NAT #### [facility] [address] [place] [address] Dr. Keturah Fisher Albumin/Globulin [Mass ratio] 1.1 {ratio} Normal [facility] Comment on above: Performed By: #### L IPA, CMP, CRP, NAT #### [facility] [address] [place] [address] Dr. Keturah Fisher ALP [Catalytic activity/Vol] 132 U/L Critically high 46-116 [facility] Comment on above: Performed By: #### L IPA, CMP, CRP, NAT #### [facility] [address] [place] [address] Dr. Keturah Fisher ALT [Catalytic activity/Vol] 20 U/L Normal 14-59 [facility] Comment on above: Performed By: #### L IPA, CMP, CRP, NAT #### [facility] [address] [place] [address] Dr. Keturah Fisher Anion gap [Moles/Vol] 13.7 mmol/L Normal [facility] Comment on above: Performed By: #### L IPA, CMP, CRP, NAT #### [facility] [address] [place] [address] Dr. Keturah Fisher AST [Catalytic activity/Vol] 19 U/L Normal 15-37 [facility] Comment on above: Performed By: #### L IPA, CMP, CRP, NAT #### [facility] [address] [place] [address] Dr. Keturah Fisher Bilirubin [Mass/Vol] 0.1 mg/dL Critically low 0.2-1.0 [facility] Comment on above: Performed By: #### L IPA, CMP, CRP, NAT #### [facility] [address] [place] [address] Dr. Keturah Fisher Calcium [Mass/Vol] 10.1 mg/dL Normal 8.5-10.1 [facility] Comment on above: Performed By: #### L IPA, CMP, CRP, NAT #### [facility] [address] [place] [address] Dr. Keturah Fisher Chloride [Moles/Vol] 104 mmol/L Normal 98-107 [facility] Comment on above: Performed By: #### L IPA, CMP, CRP, NAT #### [facility] [address] [place] [address] Dr. Keturah Fisher CO2 [Moles/Vol] 26.7 mmol/L Normal 21.0-32.0 [facility] Comment on above: Performed By: #### L IPA, CMP, CRP, NAT #### [facility] [address] [place] [address] Dr. Keturah Fisher Creatinine [Mass/Vol] 0.83 mg/dL Normal 0.55-1.02 [facility] Comment on above: Performed By: #### L IPA, CMP, CRP, NAT #### [facility] [address] [address] [address] Keturah Fisher EGFR-AF IRAQI >60 Normal >=60 [facility] Comment on above: Performed By: #### L IPA, CMP, CRP, NAT #### [facility] [address] [address] [address] Keturah Fisher EGFR-NON AF IRAQI >60 Normal >=60 [facility] Comment on above: Performed By: #### L IPA, CMP, CRP, NAT #### [facility] [address] [address] [address] Keturah Fisher Globulin (S) [Mass/Vol] 3.4 g/dL Normal [facility] Comment on above: Performed By: #### L IPA, CMP, CRP, NAT #### [facility] [address] [address] [address] Keturah Fisher Glucose [Mass/Vol] 115 mg/dL Critically high 74-[address] [facility] Comment on above: Performed By: #### L IPA, CMP, CRP, NAT #### [facility] [address] [address] [address] Keturah Fisher Potassium [Moles/Vol] 3.4 mmol/L Critically low 3.5-5.1 [facility] Comment on above: Performed By: #### L IPA, CMP, CRP, NAT #### [facility] [address] [address] [address] Keturah Fisher Protein [Mass/Vol] 7.0 g/dL Normal 6.4-8.2 [facility] Comment on above: Performed By: #### L IPA, CMP, CRP, NAT #### [facility] [address] [address] [address] Keturah Fisher Sodium [Moles/Vol] 141 mmol/L Normal 136-145 [facility] Comment on above: Performed By: #### L IPA, CMP, CRP, NAT #### [facility] [address] [address] [address] Keturah Fisher Urea nitrogen [Mass/Vol] 9.0 mg/dL Normal 7.0-18.0 [facility] Comment on above: Performed By: #### L IPA, CMP, CRP, NAT #### [facility] [address] [address] [address] Keturah Fisher Urea nitrogen/Creatinine [Mass ratio] 10.8 mg/mg Normal [facility] Comment on above: Performed By: #### L IPA, CMP, CRP, NAT #### [facility] [address] [address] [address] Keturah Fisher XR ABD FLAT UP_PA [...] ION KRUSE Date: 2022-06-13 17:10 Normal [facility] AMYLASEon 03-29-2022 Amylase [Catalytic activity/Vol] 141 U/L Critically high 25-115 [facility] Comment on above: Performed By: #### L IVER, LIPA, BMP, NAT ####[facility] [address] [place], [place] [address]KwDr. Keturah Fisher CBC AUTO DIFFon 03-29-2022 BASO # 0.1 103/ul Normal 0.0-0.1 [facility] Comment on above: Performed By: #### L IPA, CMP, CRP, NAT #### [facility] [address] [address] [address] Keturah Fisher Basophils/100 WBC (Bld) 0.6 % Normal 0.2-2.0 [facility] Comment on above: Performed By: #### L IPA, CMP, CRP, NAT #### [facility] [address] [address] [address] Keturah Fisher EO # 0.1 103/ul Normal 0.0-0.7 [facility] Comment on above: Performed By: #### L IPA, CMP, CRP, NAT #### [facility] [address] [place] [address] Dr. Keturah Fisher Eosinophils/100 WBC (Bld) 0.7 % Critically low 0.9-7.0 [facility] Comment on above: Performed By: #### L IPA, CMP, CRP, NAT #### [facility] [address] [place] [address] Dr. Keturah Fisher Erythrocyte distribution width (RBC) [Ratio] 12.9 % Normal 11.0-15.0 [facility] Comment on above: Performed By: #### L IPA, CMP, CRP, NAT #### [facility] [address] [place] [address] Dr. Keturah Fisher Hematocrit (Bld) [Volume fraction] 39.7 % Normal 36.0-48.0 [facility] Comment on above: Performed By: #### L IPA, CMP, CRP, NAT #### [facility] [address] [place] [address] Dr. Keturah Fisher Hemoglobin (Bld) [Mass/Vol] 14.7 g/dL Normal 12.0-16.0 [facility] Comment on above: Performed By: #### L IPA, CMP, CRP, NAT #### [facility] [address] [place] [address] Dr. Keturah Fisher IG # 0.04 10e3/ul Critically high 0.00-0.03 [facility] Comment on above: Performed By: #### L IPA, CMP, CRP, NAT #### [facility] [address] [place] [address] Dr. Keturah Fisher IG % 0.4 % Normal 0.0-0.5 [facility] Comment on above: Performed By: #### L IPA, CMP, CRP, NAT #### [facility] [address] [place] [address] Dr. Keturah Fisher LYMPH # 2.1 103/ul Normal 1.2-3.8 [facility] Comment on above: Performed By: #### L IPA, CMP, CRP, NAT #### [facility] [address] [place] [address] Dr. Keturah Fisher Lymphocytes/100 WBC (Bld) 21.2 % Normal 20.5-60.0 [facility] Comment on above: Performed By: #### L IPA, CMP, CRP, NAT #### [facility] [address] [place] [address] Dr. Keturah Fisher MANUAL DIFF REQ NO Normal [facility] Comment on above: Performed By: #### L IPA, CMP, CRP, NAT #### [facility] [address] [place] [address] Dr. Keturah Fisher MCH (RBC) [Entitic mass] 33.0 pg Normal 26.7-34.0 [facility] Comment on above: Performed By: #### L IPA, CMP, CRP, NAT #### [facility] [address] [place] [address] Dr. Keturah Fisher MCHC (RBC) [Mass/Vol] 37.0 g/dL Critically high 29.9-35.2 [facility] Comment on above: Performed By: #### L IPA, CMP, CRP, NAT #### [facility] [address] [place] [address] Dr. Keturah Fisher MCV (RBC) [Entitic vol] 89.0 fL Normal 81.0-99.0 [facility] Comment on above: Performed By: #### L IPA, CMP, CRP, NAT #### [facility] [address] [place] [address] Dr. Keturah Fisher MONO # 1.0 103/ul Critically high 0.3-0.8 [facility] Comment on above: Performed By: #### L IPA, CMP, CRP, NAT #### [facility] [address] [place] [address] Dr. Keturah Fisher Monocytes/100 WBC (Bld) 10.3 % Normal 1.7-12.0 [facility] Comment on above: Performed By: #### L IPA, CMP, CRP, NAT #### [facility] [address] [place] [address] Dr. Keturah Fisher NEUT # 6.5 103/ul Normal 1.4-6.5 [facility] Comment on above: Performed By: #### L IPA, CMP, CRP, NAT #### [facility] [address] [place] [address] Dr. Keturah Fisher Neutrophils/100 WBC (Bld) 66.8 % Normal 43.0-75.0 [facility] Comment on above: Performed By: #### L IPA, CMP, CRP, NAT #### [facility] [address] [place] [address] Dr. Keturah Fisher Platelet mean volume (Bld) [Entitic vol] 9.2 fL Critically low 9.5-13.5 [facility] Comment on above: Performed By: #### L IPA, CMP, CRP, NAT #### [facility] [address] [place] [address] Dr. Keturah Fisher PLT 229 103/ul Normal 150-450 [facility] Comment on above: Performed By: #### L IPA, CMP, CRP, NAT #### [facility] [address] [place] [address] Dr. Keturah Fisher RBC 4.46 106/ul Normal 4.20-5.40 [facility] Comment on above: Performed By: #### L IPA, CMP, CRP, NAT #### [facility] [address] [place] [address] Dr. Keturah Fisher WBC 9.7 103/ul Normal 4.0-11.0 [facility] Comment on above: Performed By: #### L IPA, CMP, CRP, NAT #### [facility] [address] [place] [address] Dr. Keturah Fisher LACTATE/LACTIC ACIDon 2022 Lactate [Moles/Vol] 0.5 mmol/L Normal 0.4-1.9 [facility] Comment on above: Performed By: #### L IPA, CMP, CRP, NAT #### [facility] [address] [place] [address] Dr. Keturah Fisher LIPASEon 03-29-2022 Lipase [Catalytic activity/Vol] 308.0 U/L Normal 73.0-393.0 [facility] Comment on above: Performed By: #### L IVER, LIPA, BMP, NAT ####[facility] [address] [address]Dr. Keturah Fisher LIVER PROFILEon 03-29-2022 Albumin [Mass/Vol] 3.3 g/dL Critically low 3.4-5.0 [facility] Comment on above: Performed By: #### L IVER, LIPA, BMP, NAT ####[facility] [address] [address]Dr. Keturah Fisher Albumin/Globulin [Mass ratio] 0.8 {ratio} Normal [facility] Comment on above: Performed By: #### L IVER, LIPA, BMP, NAT ####[facility] [address] [place], [place] [address]Dr. Keturah Fisher ALP [Catalytic activity/Vol] 182 U/L Critically high 46-116 [facility] Comment on above: Performed By: #### L IVER, LIPA, BMP, NAT ####[facility] [address] [place], [place] [address]Dr. Keturah Fisher ALT [Catalytic activity/Vol] 16 U/L Normal 14-59 [facility] Comment on above: Performed By: #### L IVER, LIPA, BMP, NAT ####[facility] [address] [address]Dr. Keturah Fisher AST [Catalytic activity/Vol] 26 U/L Normal 15-37 [facility] Comment on above: Performed By: #### L IVER, LIPA, BMP, NAT ####[facility] [address] [address]Dr. Keturah Fisher BILI, CONJUGATED 0.0 mg/dL Normal 0.0-0.2 [facility] Comment on above: Performed By: #### L IVER, LIPA, BMP, NAT ####[facility] [address] [address]Dr. Keturah Fisher Bilirubin [Mass/Vol] 0.3 mg/dL Normal 0.2-1.0 [facility] Comment on above: Performed By: #### L IVER, LIPA, BMP, NAT ####[facility] [address] [address]Dr. Keturah Fisher Globulin (S) [Mass/Vol] 3.9 g/dL Normal [facility] Comment on above: Performed By: #### L IVER, LIPA, BMP, NAT ####[facility] [address] [place], [place] [address]Dr. Keturah Fisher Protein [Mass/Vol] 7.2 g/dL Normal 6.4-8.2 [facility] Comment on above: Performed By: #### L IVER, LIPA, BMP, NAT ####[facility] [address] [place], [place] [address]Dr. Keturah Fisher PROF CHEM 8 (BAS METB)on Anion gap [Moles/Vol] 14.6 mmol/L Normal [facility] Comment on above: Performed By: #### L IVER, LIPA, BMP, NAT ####[facility] [address] [place], [place] [address]Dr. Keturah Fisher Calcium [Mass/Vol] 10.1 mg/dL Normal 8.5-10.1 [facility] Comment on above: Performed By: #### L IVER, LIPA, BMP, NAT ####[facility] [address] [place], [place] [address]Dr. Keturah Fisher Chloride [Moles/Vol] 104 mmol/L Normal 98-107 [facility] Comment on above: Performed By: #### L IVER, LIPA, BMP, NAT ####[facility] [address] [place], [place] [address]Dr. Keturah Fisher CO2 [Moles/Vol] 24.8 mmol/L Normal 21.0-32.0 [facility] Comment on above: Performed By: #### L IVER, LIPA, BMP, NAT ####[facility] [address] [place], [place] [address]Dr. Keturah Fisher Creatinine [Mass/Vol] 0.61 mg/dL Normal 0.55-1.02 [facility] Comment on above: Performed By: #### ROB DOUGHERTY BMP, NAT ####[facility] [address] [address]Dr. Keturah Fisher EGFR-AF IRAQI >60 Normal >=60 [facility] Comment on above: Performed By: #### Elva IVHERMINIA LIPA BMP, NAT ####[facility] [address] [address]Dr. Keturah Fisher EGFR-NON AF IRAQI >60 Normal >=60 [facility] Comment on above: Performed By: #### ROB DOUGHERTY BMP, NAT ####[facility] [address] [address]Dr. Keturah Fisher Glucose [Mass/Vol] 98 mg/dL Normal 74-106 [facility] Comment on above: Performed By: #### ROB DOUGHERTY BMP, NAT ####[facility] [address] [place], [place] [address]Dr. Keturah Fisher Potassium [Moles/Vol] 4.4 mmol/L Normal 3.5-5.1 [facility] Comment on above: Performed By: #### ROB DOUGHERTY BMP, NAT ####[facility] [address] [address]Dr. Keturah Fisher Sodium [Moles/Vol] 139 mmol/L Normal 136-145 [facility] Comment on above: Performed By: #### L IVHERMINIA LIPA, BMP, NAT ####[facility] [address] [address]Dr. Keturah Fisher Urea nitrogen [Mass/Vol] 7.0 mg/dL Normal 7.0-18.0 [facility] Comment on above: Performed By: #### L IVHERMINIA LIPA, BMP, NAT ####[facility] [address] [address]Dr. Keturah Fisher Urea nitrogen/Creatinine [Mass ratio] 11.5 mg/mg Normal [facility] Comment on above: Performed By: #### L ELSY, ROB, FRANNIE, NAT ####[facility] [address] [place], [place] [address]Fd. Keturah Fisher Albumin [Mass/volume] in Ser um or PlasmaOrdered By: Agustin Llanes on 03-22-2022 Albumin [Mass/Vol] 4.1 g/dL 3.2-5.5 [facility] Automated erythrocytes count in urine sediment (number/area)Ordered By: Agustin Llanes on 03-22-2022 RBC Auto (Urine sed) [#/Area] 3-4 [HPF] 0-4 [facility] Automated leukocytes count i n urine sediment (number/area)Ordered By: Agustin Llanes on 03-22-2022 WBC Auto (Urine sed) [#/Area] 10-19 [HPF] 0-4 [facility] Basophils Auto (Bld) [#/Vol] Ordered By: Agustin Llanes on 03-22-2022 Basophils (Bld) [#/Vol] 0.1 10*3/uL 0.0-0.2 [facility] Basophils/100 WBC Auto (Bld) Ordered By: Agustin Llanes on 03-22-2022 Basophils/100 WBC (Bld) 0.9 % . [facility] Bilirubin Test strip Ql (U)O rdered By: Agustin Llanes on 03-22-2022 Bilirubin Ql (U) Negative Negative [facility] Color Auto (U)Ordered By: Vita Llanes on 03-22-2022 Color (U) Yellow Yellow [facility] Creatinine and Glomerular fi ltration rate.predicted panel (S/P/Bld)Ordered By: Agustin Llanes on 03-22-2022 Creatinine [Mass/Vol] 0.74 mg/dL 0.44-1.[address] [facility] Direct bilirubin measurement Ordered By: Agustin Llanes on 03-22-2022 Bilirubin.direct [Mass/Vol] 0.3 mg/dL 0.0-0.4 [facility] Eosinophils Auto (Bld) [#/Vo l]Ordered By: Agustin Llanes on 03-22-2022 Eosinophils (Bld) [#/Vol] 0.1 10*3/uL 0.0-0.45 [facility] Eosinophils/100 WBC Auto (Bl d)Ordered By: Agustin Llanes on 03-22-2022 Eosinophils/100 WBC (Bld) 0.7 % . [facility] Erythrocyte distribution wid th Auto (RBC) [Ratio]Ordered By: Agustin Llanes on 03-22-2022 Erythrocyte distribution width (RBC) [Ratio] 13.9 % 11.9-15.3 [facility] Estimated glomerular filtrat ion rate (GFR) non- AmericanOrdered By: Agustin Llanes on 03-22-2022 GFR/1.73 sq M.predicted among non-blacks MDRD (S/P/Bld) [Vol rate/Area] > 60 mL/Min [facility] Globulin Calc (S) [Mass/Vol] Ordered By: Agustin Llanes on 03-22-2022 Globulin (S) [Mass/Vol] 3.1 g/dL [facility] HCG ( test) IA.rapi d Ql (U)Ordered By: Agustin Llanes on 03-22-2022 HCG ( test) Ql (U) Negative [facility] Hematocrit Auto (Bld) [Volum e fraction]Ordered By: Agustin Llanes on 03-22-2022 Hematocrit (Bld) [Volume fraction] 45.7 % 34.0-46.4 [facility] Hemoglobin [Mass/volume] in BloodOrdered By: Agustin Llanes on 03-22-2022 Hemoglobin (Bld) [Mass/Vol] 15.2 g/dL 11.8-15.4 [facility] Ketones Auto test strip (U) [Mass/Vol]Ordered By: Agustin Llanes on 03-22-2022 Ketones (U) [Mass/Vol] Negative Negative [facility] - Chemistry and C hemistry - challengeOrdered By: Agustin Llanes on 03-22-2022 Lipase [Catalytic activity/Vol] 122.0 U/L 22-51 [facility] - UrinalysisOrder ed By: Agustin Llanes on 03-22-2022 Hyaline casts LM Ql (Urine sed) 0-8 [LPF] 0-8 [facility] Leukocytes [#/volume] correc aurelia for nucleated erythrocytes in Blood by Automated counOrdered By: Agustin Llanes on 03-22-2022 WBC corrected for nucl RBC Auto (Bld) [#/Vol] 12.4 10*3/uL 3.8-11.6 [facility] Lymphocytes Auto (Bld) [#/Vo l]Ordered By: Agustin Llanes on 03-22-2022 Lymphocytes (Bld) [#/Vol] 2.2 10*3/uL 1.00-4.8 [facility] Lymphocytes/100 WBC Auto (Bl d)Ordered By: Agustin Llanes on 03-22-2022 Lymphocytes/100 WBC (Bld) 18.0 % . [facility] MCH Auto (RBC) [Entitic mass ]Ordered By: Agustin Llanes on 03-22-2022 MCH (RBC) [Entitic mass] 32.5 pg 24.7-34.3 [facility] MCHC Auto (RBC) [Mass/Vol]Or dered By: Agustin Llanes on 03-22-2022 MCHC (RBC) [Mass/Vol] 33.2 g/dL 32.0-35.[address] [facility] MCV Auto (RBC) [Entitic vol] Ordered By: Agustin Llanes on 03-22-2022 MCV (RBC) [Entitic vol] 98.0 fL 80-100 [facility] Monocyte distribution width [Entitic volume] in Blood by AutomatedOrdered By: Agustin Llanes on 03-22-2022 Monocyte distribution width Auto (Bld) [Entitic vol] 18.78 % 0.00-20.00 [facility] Monocytes Auto (Bld) [#/Vol] Ordered By: Agustin Llanes on 03-22-2022 Monocytes (Bld) [#/Vol] 1.0 10*3/uL 0.0-0.8 [facility] Monocytes/100 WBC Auto (Bld) Ordered By: Agustin Llanes on 03-22-2022 Monocytes/100 WBC (Bld) 8.0 % . [facility] Neutrophils Auto (Bld) [#/Vo l]Ordered By: Agustin Llanes on 03-22-2022 Neutrophils (Bld) [#/Vol] 9.0 10*3/uL 1.8-7.7 [facility] Neutrophils/100 WBC Auto (Bl d)Ordered By: Agustin Llanes on 03-22-2022 Neutrophils/100 WBC (Bld) 72.4 % . [facility] Nitrite Test strip Ql (U)Ord ered By: Agustin Llanes on 03-22-2022 Nitrite Ql (U) Positive Negative [facility] No Panel InformationOrdered By: Agustin Llanes on 03-22-2022 Estimated GFR () > 60 mL/Min [facility] Comment on above: GFR estimated refere nce range: According to KDOQI guidelines, <60 ml/min/1.73m2 is sufficient to diagnose a patient with chronic kidney disease. Pharmacy Creatinine Clearance (Chem 70.34 [facility] Nucleated erythrocytes [Pres ence] in Blood by Automated countOrdered By: Agustin Llanes on 03-22-2022 Nucleated RBC Auto Ql (Bld) 0.0 /100{WBC} 0-0.5 [facility] Platelet mean volume Auto (B ld) [Entitic vol]Ordered By: Agustin Llanes on 03-22-2022 Platelet mean volume (Bld) [Entitic vol] 8.0 fL 6.3-10.7 [facility] Platelets Auto (Bld) [#/Vol] Ordered By: Agustin Llanes on 03-22-2022 Platelets (Bld) [#/Vol] 266 10*3/uL 150-450 [facility] Protein Auto test strip (U) [Mass/Vol]Ordered By: Agustin Llanes on 03-22-2022 Protein (U) [Mass/Vol] Negative Negative [facility] Protein [Mass/volume] in Ser um or PlasmaOrdered By: Agustin Llanes on 03-22-2022 Protein [Mass/Vol] 7.2 g/dL 6.1-7.9 [facility] RBC Auto (Bld) [#/Vol]Ordere d By: Agustin Llanes on 03-22-2022 RBC (Bld) [#/Vol] 4.67 10*6/uL 3.60-5.00 [facility] Serum or plasma alanine hughes otransferase measurement without P-5'-P (enzymatic activiOrdered By: Agustin Llanes on 03-22-2022 ALT No additional P-5'-P [Catalytic activity/Vol] 19 U/L 10-60 [facility] Serum or plasma albumin/glob ulin mass ratioOrdered By: Agustin Llanes on 03-22-2022 Albumin/Globulin [Mass ratio] 1.3 {ratio} [facility] Serum or plasma alkaline jaqueline sphatase measurement (enzymatic activity/volume)Ordered By: Agustin Llanes on 03-22-2022 ALP [Catalytic activity/Vol] 156 U/L 32-92 [facility] Serum or plasma anion gap de terminationOrdered By: Agustin Llanes on 03-22-2022 Anion gap [Moles/Vol] 12.6 mmol/L 6.0-15.0 [facility] Serum or plasma aspartate am inotransferase measurement (enzymatic activity/volume)Ordered By: Agustin Llanes on 03-22-2022 AST [Catalytic activity/Vol] 29 U/L 10-42 [facility] Serum or plasma calcium priscilla urement (mass/volume)Ordered By: Agustin Llanes on 03-22-2022 Calcium [Mass/Vol] 9.9 mg/dL 8.2-10.2 [facility] Serum or plasma chloride daron surement (moles/volume)Ordered By: Agustin Llanes on 03-22-2022 Chloride [Moles/Vol] 103 mmol/L 95-114 [facility] Serum or plasma glucose priscilla urement (mass/volume)Ordered By: Agustin Llanes on 03-22-2022 Glucose [Mass/Vol] 106 mg/dL 70-100 [facility] Comment on above: ADA recommended refe rence rangeRandom Glucose Reference Range is dependent on time and content of last meal. Glucose of more than 200 mg/dL in a nonstressed, ambulatory subject supports the diagnosis of Diabetes Mellitus. Serum or plasma non-glucuron idated bilirubin measurement (mass/volume)Ordered By: Agustin Llanes on 03-22-2022 Bilirubin.indirect [Mass/Vol] 0.2 mg/dL [facility] Serum or plasma potassium me asurement (moles/volume)Ordered By: Agustin Llanes on 03-22-2022 Potassium [Moles/Vol] 4.5 mmol/L 3.5-5.[address] [facility] Serum or plasma sodium measu rement (moles/volume)Ordered By: Agustin Llanes on 03-22-2022 Sodium [Moles/Vol] 138 mmol/L 136-146 [facility] Serum or plasma total biliru bin measurement (mass/volume)Ordered By: Agustin Llanes on 03-22-2022 Bilirubin [Mass/Vol] 0.5 mg/dL 0.3-1.2 [facility] Serum or plasma total carbon dioxide measurement (moles/volume)Ordered By: Agustin Llanes on 03-22-2022 CO2 [Moles/Vol] 26.9 mmol/L 22.0-30.0 [facility] Serum or plasma urea nitroge n measurement (mass/volume)Ordered By: Agustin Llanes on 03-22-2022 Urea nitrogen [Mass/Vol] 8 mg/dL 9 [facility] Specific gravity Auto test s trip (U) [Rel density]Ordered By: Agustin Llanes on 03-22-2022 Specific gravity (U) [Rel density] 1.011 1.001-1.03 0 [facility] Squamous epithelial cells de tection in urine sediment by light microscopyOrdered By: Agustin Llanes on 03-22-2022 Epithelial cells.squamous LM Ql (Urine sed) 1-2 [HPF] 0-2 [facility] Urine bacteria detection by automated methodOrdered By: Agustin Llanes on 03-22-2022 Bacteria Auto Ql (U) 1+ None Seen [facility] Urine clarity by refractomet ry automatedOrdered By: Agustin Llanes on 03-22-2022 Clarity Refractometry automated (U) Clear Clear [facility] Urine glucose measurement by automated test strip (mass/volume)Ordered By: Agustin Llanes on 03-22-2022 Glucose Auto test strip (U) [Mass/Vol] Normal mg/dL Normal [facility] Urine hemoglobin detection b y automated test stripOrdered By: Agustin Llanes on 03-22-2022 Hemoglobin Auto test strip Ql (U) Negative Negative [facility] Urine leukocyte esterase det ection by automated test stripOrdered By: Agustin Llanes on 03-22-2022 Leukocyte esterase Auto test strip Ql (U) 2+ Negative [facility] Urobilinogen Auto test strip (U) [Mass/Vol]Ordered By: Agustin Llanes on 03-22-2022 Urobilinogen (U) [Mass/Vol] Normal mg/dL Normal [facility] WBC Auto (Bld) [#/Vol]Ordere d By: Agustin Llanes on 03-22-2022 WBC (Bld) [#/Vol] 12.4 10*3/uL 3.8-11.6 [facility] pH Auto test strip (U)Ordere d By: Agustin Llanes on 03-22-2022 pH (U) 5.5 [pH] 5.0-9.0 [facility] AMYLASEon 03-19-2022 Amylase [Catalytic activity/Vol] 297 U/L Critically high 25-115 [facility] Comment on above: Performed By: #### L IPA, CMP, CRP, NAT #### [facility] [address] [place] [address] Dr. Keturah Fisher CBC AUTO DIFFon 03-19-2022 BASO # 0.1 103/ul Normal 0.0-0.1 [facility] Comment on above: Performed By: #### L IPA, CMP, CRP, NAT #### [facility] [address] [place] [address] Dr. Keturah Fisher Basophils/100 WBC (Bld) 0.6 % Normal 0.2-2.0 [facility] Comment on above: Performed By: #### L IPA, CMP, CRP, NAT #### [facility] [address] [place] [address] Dr. Keturah Fisher EO # 0.1 103/ul Normal 0.0-0.7 [facility] Comment on above: Performed By: #### L IPA, CMP, CRP, NAT #### [facility] [address] [place] [address] Dr. Keturah Fisher Eosinophils/100 WBC (Bld) 0.5 % Critically low 0.9-7.0 [facility] Comment on above: Performed By: #### L IPA, CMP, CRP, NAT #### [facility] [address] [place] [address] Dr. Keturah Fisher Erythrocyte distribution width (RBC) [Ratio] 13.4 % Normal 11.0-15.0 [facility] Comment on above: Performed By: #### L IPA, CMP, CRP, NAT #### [facility] [address] [place] [address] Dr. Keturah Fisher Hemoglobin (Bld) [Mass/Vol] 15.7 g/dL Normal 12.0-16.0 [facility] Comment on above: Performed By: #### L IPA, CMP, CRP, NAT #### [facility] [address] [address] [address] Keturah Fisher IG # 0.06 10e3/ul Critically high 0.00-0.03 [facility] Comment on above: Performed By: #### L IPA, CMP, CRP, NAT #### [facility] [address] [place] [address] Dr. Keturah Fisher IG % 0.4 % Normal 0.0-0.5 [facility] Comment on above: Performed By: #### L IPA, CMP, CRP, NAT #### [facility] [address] [place] [address] Dr. Keturah Fisher LYMPH # 2.6 103/ul Normal 1.2-3.8 [facility] Comment on above: Performed By: #### L IPA, CMP, CRP, NAT #### [facility] [address] [place] [address] Dr. Keturah Fisher Lymphocytes/100 WBC (Bld) 18.1 % Critically low 20.5-60.0 [facility] Comment on above: Performed By: #### L IPA, CMP, CRP, NAT #### [facility] [address] [place] [address] Dr. Keturah Fisher MANUAL DIFF REQ NO Normal [facility] Comment on above: Performed By: #### L IPA, CMP, CRP, NAT #### [facility] [address] [place] [address] Dr. Keturah Fisher MCH (RBC) [Entitic mass] 32.4 pg Normal 26.7-34.0 [facility] Comment on above: Performed By: #### L IPA, CMP, CRP, NAT #### [facility] [address] [place] [address] Dr. Keturah Fisher MCHC (RBC) [Mass/Vol] 32.5 g/dL Normal 29.9-35.2 [facility] Comment on above: Performed By: #### L IPA, CMP, CRP, NAT #### [facility] [address] [place] [address] Dr. Keturah Fisher MCV (RBC) [Entitic vol] 99.8 fL Critically high 81.0-99.0 [facility] Comment on above: Performed By: #### L IPA, CMP, CRP, NAT #### [facility] [address] [place] [address] Dr. Keturah Fisher MONO # 0.9 103/ul Critically high 0.3-0.8 [facility] Comment on above: Performed By: #### L IPA, CMP, CRP, NAT #### [facility] [address] [place] [address] Dr. Keturah Fisher Monocytes/100 WBC (Bld) 5.9 % Normal 1.7-12.0 [facility] Comment on above: Performed By: #### L IPA, CMP, CRP, NAT #### [facility] [address] [place] [address] Dr. Keturah Fisher NEUT # 10.8 103/ul Critically high 1.4-6.5 [facility] Comment on above: Performed By: #### L IPA, CMP, CRP, NAT #### [facility] [address] [place] [address] Dr. Keturah Fisher Neutrophils/100 WBC (Bld) 74.5 % Normal 43.0-75.0 [facility] Comment on above: Performed By: #### L IPA, CMP, CRP, NAT #### [facility] [address] [place] [address] Dr. Keturah Fisher Platelet mean volume (Bld) [Entitic vol] 9.7 fL Normal 9.5-13.5 [facility] Comment on above: Performed By: #### L IPA, CMP, CRP, NAT #### [facility] [address] [place] [address] Dr. Keturah Fisher PLT 279 103/ul Normal 150-450 [facility] Comment on above: Performed By: #### L IPA, CMP, CRP, NAT #### [facility] [address] [place] [address] Dr. Keturah Fisher RBC 4.84 106/ul Normal 4.20-5.40 [facility] Comment on above: Performed By: #### L IPA, CMP, CRP, NAT #### [facility] [address] [address] [address] Keturah Fisher WBC 14.5 103/ul Critically high 4.0-11.0 [facility] Comment on above: Performed By: #### L IPA, CMP, CRP, NAT #### [facility] [id number] Keturah Fisher CT ABD/PELVIS WO CONon [...] small bowel obstruction. Electronically authenticated by: AGUSTIN CAMPBELL Date: 2022-03-19 19:10 Normal [facility] LIPASEon 03-19-2022 Lipase [Catalytic activity/Vol] 1573.0 U/L Critically high 73.0-393.0 [facility] Comment on above: Performed By: #### L IPA, CMP, CRP, NAT #### [facility] [address] [place] [address] Dr. Keturah Fisher PROF 14(COMP METB)on 023 Albumin [Mass/Vol] 4.3 g/dL Normal 3.4-5.0 [facility] Comment on above: Performed By: #### L IPA, CMP, CRP, NAT #### [facility] [address] [place] [address] Dr. Keturah Fisher Albumin/Globulin [Mass ratio] 1.1 {ratio} Normal [facility] Comment on above: Performed By: #### L IPA, CMP, CRP, NAT #### [facility] [address] [place] [address] Dr. Keturah Fisher ALP [Catalytic activity/Vol] 222 U/L Critically high 46-116 [facility] Comment on above: Performed By: #### L IPA, CMP, CRP, NAT #### [facility] [address] [address] [address] Keturah Fisher ALT [Catalytic activity/Vol] 18 U/L Normal 14-59 [facility] Comment on above: Performed By: #### L IPA, CMP, CRP, NAT #### [facility] [address] [place] [address] Dr. Keturah Fisher Anion gap [Moles/Vol] 10.7 mmol/L Normal [facility] Comment on above: Performed By: #### L IPA, CMP, CRP, NAT #### [facility] [address] [address] [address] Keturah Fisher AST [Catalytic activity/Vol] 19 U/L Normal 15-37 [facility] Comment on above: Performed By: #### L IPA, CMP, CRP, NAT #### [facility] [address] [address] [address] Keturah Fisher Bilirubin [Mass/Vol] 0.2 mg/dL Normal 0.2-1.0 [facility] Comment on above: Performed By: #### L IPA, CMP, CRP, NAT #### [facility] [address] [place] [address] Dr. Keturah Fisher Calcium [Mass/Vol] 10.2 mg/dL Critically high 8.5-10.[address] [facility] Comment on above: Performed By: #### L IPA, CMP, CRP, NAT #### [facility] [address] [place] [address] Dr. Keturah Fisher Chloride [Moles/Vol] 101 mmol/L Normal 98-107 [facility] Comment on above: Performed By: #### L IPA, CMP, CRP, NAT #### [facility] [address] [address] [address] Keturah Fisher CO2 [Moles/Vol] 29.1 mmol/L Normal 21.0-32.0 [facility] Comment on above: Performed By: #### L IPA, CMP, CRP, NAT #### [facility] [address] [place] [address] Dr. Keturah Fisher Creatinine [Mass/Vol] 0.73 mg/dL Normal 0.55-1.02 [facility] Comment on above: Performed By: #### L IPA, CMP, CRP, NAT #### [facility] [address] [place] [address] Dr. Keturah Fisher EGFR-AF IRAQI >60 Normal >=60 [facility] Comment on above: Performed By: #### L IPA, CMP, CRP, NAT #### [facility] [address] [place] [address] Dr. Keturah Fisher EGFR-NON AF IRAQI >60 Normal >=60 [facility] Comment on above: Performed By: #### L IPA, CMP, CRP, NAT #### [facility] [address] [place] [address] Dr. Keturah Fisher Globulin (S) [Mass/Vol] 4.0 g/dL Normal [facility] Comment on above: Performed By: #### L IPA, CMP, CRP, NAT #### [facility] [address] [place] [address] Dr. Keturah Fisher Glucose [Mass/Vol] 92 mg/dL Normal 74-106 [facility] Comment on above: Performed By: #### L IPA, CMP, CRP, NAT #### [facility] [address] [place] [address] Dr. Keturah Fisher Potassium [Moles/Vol] 3.8 mmol/L Normal 3.5-5.1 [facility] Comment on above: Performed By: #### L IPA, CMP, CRP, NAT #### [facility] [address] [place] [address] Dr. Keturah Fihser Protein [Mass/Vol] 8.3 g/dL Critically high 6.4-8.2 [facility] Comment on above: Performed By: #### L IPA, CMP, CRP, NAT #### [facility] [address] [place] [address] Dr. Keturah Fisher Sodium [Moles/Vol] 137 mmol/L Normal 136-145 [facility] Comment on above: Performed By: #### L IPA, CMP, CRP, NAT #### [facility] [address] [place] [address] Dr. Keturah Fisher Urea nitrogen [Mass/Vol] 10.0 mg/dL Normal 7.0-18.0 [facility] Comment on above: Performed By: #### L IPA, CMP, CRP, NAT #### [facility] [address] [place] [address] Dr. Keturah Fisher Urea nitrogen/Creatinine [Mass ratio] 13.7 mg/mg Normal [facility] Comment on above: Performed By: #### L IPA, CMP, CRP, NAT #### [facility] [address] [address] [address] Keturah Fisher PROTIMEon 03-19-2022 INR Coag (PPP) [Relative time] {INR} Normal [facility] Comment on above: Performed By: #### P TT, PT ####[facility] [address] [address]DrGopal Fisher INR GUIDELINES SEE BELOW Normal [facility] Comment on above: Result Comment: KARLY RED INR: 2.0 - 3.0 CONDITIONS NOT LISTED BELOW 2.5 - 3.5 FOR PROSTHETIC HEART VALVE REPLACEMENT 2.5 - 3.5 RECURRENT THROMBOSIS Performed By: #### P TT, PT ####[facility] [address] [address]DrGopal Fisher PT Coag (PPP) [Time] 9.4 s Normal 9.0-11.6 [facility] Comment on above: Performed By: #### P TT, PT ####[facility] [address] [address]DrGopal Fisher PTTon 03-19-2022 aPTT Coag (Bld) [Time] 26.1 s Normal 22.3-36.2 [facility] Comment on above: Performed By: #### P TT, PT ####[facility] [address] [address]Dr. Keturah Fisher TROPONIN, HIGH SENSITIVITYon 03-19-2022 HSTROP 4.0 pg/mL Normal 4.0-51.3 [facility] Comment on above: Result Comment: CUT- OFF POINTS HAVE BEEN ESTABLISHED BASED ON THE FOURTH UNIVERSAL DEFINITIONS OF MYOCARDIAL INFARCTION. THE UPPER REFERENCE LIMIT (URL) OF TROPONIN, DEFINED THE 99TH PERCENTILE OF cTnI DISTRIBUTION IN A REFERENCE POPULATION, HAS BEEN CONFIRMED THE DECISION THRESHOLD FOR [place] DIAGNOSIS. Performed By: #### L IPA, CMP, CRP, NAT #### [facility] [address] [address] [address] Keturah Fisher UPPER EUSon 01-28-2022 [facility] Gastroenterology Patient Name: Chioma Rainey Procedure Date: 01/28/2022 8:55 AM Date of : 1970 Admit Type: Outpatient Age: 51 Room: EUS Proc Room 01 Gender: Female Note Status: Finalized Attending MD: Sabrina Dee MD, MPH, [id number] Procedure: Upper EUS Indications: Chronic pancreatitis, Celiac plexus block for pain secondary to chronic pancreatitis Providers: Sabrina Dee MD, MPH (Doctor), Akilah Gonzales RN (Nurse), Lara Yost RN (Nurse), Lavern Garcia Fish Skinning Machine Feeder (Fish Skinning Machine Feeder), LOW Velazquez (Anesthesia Staff), Neri Goins MD (Anesthesia Staff) Patient Profile: This is a 51 year old female. Refer to note in patient chart for documentation of history and physical. Referring MD: Alexanedr Nichols MD (Referring MD) Medicines: Monitored Anesthesia [...] verified by the physician, the nurse, the sleeve setter lockstitch and the community service technician in the procedure room. Mental [...] si (more content not included)... LAB, [facility] Radiology Study observation (narrative) [facility] BONE DENSITY AXIAL (HIP, PEL [...] interpreted this study is a Certified Clinical Complaint Analyst by the International Society of Clinical Densitometry Maulik Reed M.D., CCD. OLOGY EXAM: BONE DENSITY A XIAL (HIP, PELVIS, SPINE) 01/27/2022 15:34 PM TECHNIQUE: DXA scanning using a [employer] Advance bone densitometer at the [facility] was performed on 01/27/2022 15:34 PM [...] 15:34 PM TECHNIQUE: DXA scanning using a [employer] Advance bone densitometer at the [facility] was performed on 01/27/2022 15:34 PM [...] interpreted this study is a Certified Clinical Complaint Analyst by the International Society of Clinical Densitometry Maulik Reed M.D., CCD. [facility] Radiology Study observation (narrative) [facility] BONE DENSITY AXIAL (HIP, PEL VIS, SPINE)Ordered By: Maulik Reed on 01-27-2022 [facility] Work Phone: CBC AUTO DIFFon 01-15-2022 BASO # 0.1 103/ul Normal 0.0-0.1 [facility] Comment on above: Performed By: #### C BC ####[facility] [address] [place], [place] [address]LpGopal Rebollar Fisher Basophils/100 WBC (Bld) 0.9 % Normal 0.2-2.0 [facility] Comment on above: Performed By: #### C BC ####[facility] [address] [address]Dr. Keturah Fisher EO # 0.2 103/ul Normal 0.0-0.7 [facility] Comment on above: Performed By: #### C BC ####[facility] [address] [place], [place] [address]Dr. Keturah Fisher Eosinophils/100 WBC (Bld) 2.8 % Normal 0.9-7.0 [facility] Comment on above: Performed By: #### C BC ####[facility] [address] [place], [place] [address]Dr. Keturah Fisher Erythrocyte distribution width (RBC) [Ratio] 12.9 % Normal 11.0-15.0 [facility] Comment on above: Performed By: #### C BC ####[facility] [address] [place], [place] [address]Dr. Keturah Fisher Hematocrit (Bld) [Volume fraction] 41.7 % Normal 36.0-48.0 [facility] Comment on above: Performed By: #### C BC ####[facility] [address] [place], [place] [address]Dr. Keturah Fisher Hemoglobin (Bld) [Mass/Vol] 14.0 g/dL Normal 12.0-16.0 [facility] Comment on above: Performed By: #### C BC ####[facility] [address] [place], [place] [address]Dr. Keturah Fisher IG # 0.01 10e3/ul Normal 0.00-0.03 [facility] Comment on above: Performed By: #### C BC ####[facility] [address] [place], [place] [address]Dr. Keturah Fisher IG % 0.1 % Normal 0.0-0.5 [facility] Comment on above: Performed By: #### C BC ####[facility] [address] [place], [place] [address]Dr. Keturah Fisher LYMPH # 2.4 103/ul Normal 1.2-3.8 [facility] Comment on above: Performed By: #### C BC ####[facility] [address] [id number]. Keturah Phillip Lymphocytes/100 WBC (Bld) 32.0 % Normal 20.5-60.0 [facility] Comment on above: Performed By: #### C BC ####[facility] [address] [id number][address] Keturah Fisher MANUAL DIFF REQ NO Normal [facility] Comment on above: Performed By: #### C BC ####[facility] [address] [id number]. Elisaeli Fisher MCH (RBC) [Entitic mass] 32.6 pg Normal 26.7-34.0 [facility] Comment on above: Performed By: #### C BC ####[facility] [address] [place], [place] [address]Dr. Keturah Fisher MCHC (RBC) [Mass/Vol] 33.6 g/dL Normal 29.9-35.2 [facility] Comment on above: Performed By: #### C BC ####[facility] [address] [place], [place] [address]Dr. Elisaeli Fisher MCV (RBC) [Entitic vol] 97.0 fL Normal 81.0-99.0 [facility] Comment on above: Performed By: #### C BC ####[facility] [address] [place], [place] [address]Dr. Keturah Fisher MONO # 0.7 103/ul Normal 0.3-0.8 [facility] Comment on above: Performed By: #### C BC ####[facility] [address] [place], [place] [id number]. Keturah Fisher Monocytes/100 WBC (Bld) 9.5 % Normal 1.7-12.0 [facility] Comment on above: Performed By: #### C BC ####[facility] [address] [place], [place] [id number]. Keturah Fisher NEUT # 4.1 103/ul Normal 1.4-6.5 [facility] Comment on above: Performed By: #### C BC ####[facility] [address] [address]Dr. Keturah Fisher Neutrophils/100 WBC (Bld) 54.7 % Normal 43.0-75.0 [facility] Comment on above: Performed By: #### C BC ####[facility] [address] [address]Dr. Keturah Fisher Platelet mean volume (Bld) [Entitic vol] 9.6 fL Normal 9.5-13.5 [facility] Comment on above: Performed By: #### C BC ####[facility] [address] [address]Dr. Keturah Fisher PLT 235 103/ul Normal 150-450 [facility] Comment on above: Performed By: #### C BC ####[facility] [address] [address]Dr. Keturah Fisher RBC 4.30 106/ul Normal 4.20-5.40 [facility] Comment on above: Performed By: #### C BC ####[facility] [address] [address]Dr. Keturah Fisher WBC 7.6 103/ul Normal 4.0-11.0 [facility] Comment on above: Performed By: #### C BC ####[facility] [address] [address]Dr. Keturah Fisher ER URINE PROFILEon 2 Bilirubin Ql (U) Negative Normal NEGATIVE [facility] Comment on above: Performed By: #### L IPA, CMP, CRP, NAT #### [facility] [address] [place] [address] Dr. Keturah Fisher Clarity (U) CLEAR Normal CLEAR [facility] Comment on above: Performed By: #### L IPA, CMP, CRP, NAT #### [facility] [address] [place] [address] Dr. Keturah Fisher Color (U) YELLOW Normal YELLOW [facility] Comment on above: Performed By: #### L IPA, CMP, CRP, NAT #### [facility] [address] [address] [address] Keturah BAH A micrscopic examina tion will be performed if indicated. Normal [facility] Comment on above: Performed By: #### L IPA, CMP, CRP, NAT #### [facility] [address] [address] [address] Keturah Fisher Glucose Ql (U) Negative Normal NEGATIVE [facility] Comment on above: Performed By: #### L IPA, CMP, CRP, NAT #### [facility] [address] [address] [address] Keturah Fisher Hemoglobin Ql (U) Negative Normal NEGATIVE [facility] Comment on above: Performed By: #### L IPA, CMP, CRP, NAT #### [facility] [address] [place] [address] Dr. Keturah Fisher Ketones Ql (U) Negative Normal NEGATIVE [facility] Comment on above: Performed By: #### L IPA, CMP, CRP, NAT #### [facility] [address] [place] [address] Dr. Keturah Fisher LEUKOCYTES Negative Normal NEGATIVE [facility] Comment on above: Performed By: #### L IPA, CMP, CRP, NAT #### [facility] [address] [place] [address] Dr. Keturah Fisher Nitrite Ql (U) Negative Normal NEGATIVE [facility] Comment on above: Performed By: #### L IPA, CMP, CRP, NAT #### [facility] [address] [place] [address] Dr. Keturah Fisher pH (U) 5.5 [pH] Normal 5-9 [facility] Comment on above: Performed By: #### L IPA, CMP, CRP, NAT #### [facility] [address] [place] [address] Dr. Keturah Fisher SPEC GRAVITY >=1.030 Abnormal 1.005-<=1. 025 [facility] Comment on above: Performed By: #### L IPA, CMP, CRP, NAT #### [facility] [address] [place] [address] Dr. Keturah Fisher UA PROTEIN Negative Normal NEGATIVE/ TRACE [facility] Comment on above: Performed By: #### L IPA, CMP, CRP, NAT #### [facility] [address] [place] [address] Dr. Keturah Fisher UR MICRO IND NOT INDICATED Normal [facility] Comment on above: Performed By: #### L IPA, CMP, CRP, NAT #### [facility] [address] [place] [address] Dr. Keturah Fisher Urobilinogen Qn (U) 0.2 {Marizol'U}/dL Normal 0.2 - 1. 0 [facility] Comment on above: Performed By: #### L IPA, CMP, CRP, NAT #### [facility] [address] [place] [address] Dr. Keturah Fisher LIPASEon 01-15-2022 Lipase [Catalytic activity/Vol] 572.0 U/L Critically high 73.0-393.0 [facility] Comment on above: Performed By: #### C BC #### [facility] [address] [place] [address] Dr. Keturah Fisher URon 01-15-2022 , QUAL Negative Normal NEGATIVE [facility] Comment on above: Performed By: #### L IPA, CMP, CRP, NAT #### [facility] [address] [place] [address] Dr. Keturah Fisher PROF 14(COMP METB)on 022 Albumin [Mass/Vol] 3.8 g/dL Normal 3.4-5.0 [facility] Comment on above: Performed By: #### C BC #### [facility] [address] [place] [address] Dr. Keturah Fisher Albumin/Globulin [Mass ratio] 1.1 {ratio} Normal [facility] Comment on above: Performed By: #### C BC #### [facility] [address] [place] [address] Dr. Keturah Fisher ALP [Catalytic activity/Vol] 151 U/L Critically high 46-116 [facility] Comment on above: Performed By: #### C BC #### [facility] [address] [address] [address] Keturah Fisher ALT [Catalytic activity/Vol] 14 U/L Normal 14-59 [facility] Comment on above: Performed By: #### C BC #### [facility] [address] [place] [address] Dr. Keturah Fisher Anion gap [Moles/Vol] 5.5 mmol/L Normal [facility] Comment on above: Performed By: #### C BC #### [facility] [address] [address] [address] Keturah Fisher AST [Catalytic activity/Vol] 16 U/L Normal 15-37 [facility] Comment on above: Performed By: #### C BC #### [facility] [address] [place] [address] Dr. Keturah Fisher Bilirubin [Mass/Vol] 0.1 mg/dL Critically low 0.2-1.0 [facility] Comment on above: Performed By: #### C BC #### [facility] [address] [place] [address] Dr. Keturah Fisher Calcium [Mass/Vol] 9.5 mg/dL Normal 8.5-10.1 [facility] Comment on above: Performed By: #### C BC #### [facility] [address] [place] [address] Dr. Keturah Fisher Chloride [Moles/Vol] 105 mmol/L Normal 98-107 [facility] Comment on above: Performed By: #### C BC #### [facility] [address] [place] [address] Dr. Keturah Fisher CO2 [Moles/Vol] 30.0 mmol/L Normal 21.0-32.0 [facility] Comment on above: Performed By: #### C BC #### [facility] [address] [place] [address] Dr. Keturah Fisher Creatinine [Mass/Vol] 0.90 mg/dL Normal 0.55-1.02 [facility] Comment on above: Performed By: #### C BC #### [facility] [address] [place] [address] Dr. Keturah Fisher EGFR-AF IRAQI >60 Normal >=60 [facility] Comment on above: Performed By: #### C BC #### [facility] [address] [address] [address] Keturah Fisher EGFR-NON AF IRAQI >60 Normal >=60 [facility] Comment on above: Performed By: #### C BC #### [facility] [address] [address] [address] Keturah Fisher Globulin (S) [Mass/Vol] 3.4 g/dL Normal [facility] Comment on above: Performed By: #### C BC #### [facility] [address] [address] [address] Keturah Fisher Glucose [Mass/Vol] 82 mg/dL Normal 74-106 [facility] Comment on above: Performed By: #### C BC #### [facility] [address] [address] [address] Keturah Fisher Potassium [Moles/Vol] 3.5 mmol/L Normal 3.5-5.1 [facility] Comment on above: Performed By: #### C BC #### [facility] [address] [address] [address] Keturah Fisher Protein [Mass/Vol] 7.2 g/dL Normal 6.4-8.2 [facility] Comment on above: Performed By: #### C BC #### [facility] [address] [address] [address] Keturah Fisher Sodium [Moles/Vol] 137 mmol/L Normal 136-145 [facility] Comment on above: Performed By: #### C BC #### [facility] [address] [address] [address] Keturah Fisher Urea nitrogen [Mass/Vol] 12.0 mg/dL Normal 7.0-18.0 [facility] Comment on above: Performed By: #### C BC #### [facility] [address] [address] [address] Keturah Fisher Urea nitrogen/Creatinine [Mass ratio] 13.3 mg/mg Normal [facility] Comment on above: Performed By: #### C BC #### [facility] [address] [place] [address] Dr. Keturah Fisher AMYLASEon 12-13-2021 Amylase [Catalytic activity/Vol] 268 U/L Critically high 25-115 [facility] Comment on above: Performed By: #### L IPA, CMP, CRP, NAT #### [facility] [address] [place] [address] Dr. Keturah Fisher CBC AUTO DIFFon 12-13-2021 BASO # 0.1 103/ul Normal 0.0-0.1 [facility] Comment on above: Performed By: #### L IPA, CMP, CRP, NAT #### [facility] [address] [place] [address] Dr. Keturah Fisher Basophils/100 WBC (Bld) 0.6 % Normal 0.2-2.0 [facility] Comment on above: Performed By: #### L IPA, CMP, CRP, NAT #### [facility] [address] [place] [address] Dr. Keturah Fisher EO # 0.1 103/ul Normal 0.0-0.7 [facility] Comment on above: Performed By: #### L IPA, CMP, CRP, NAT #### [facility] [address] [place] [address] Dr. Keturah Fisher Eosinophils/100 WBC (Bld) 1.2 % Normal 0.9-7.0 [facility] Comment on above: Performed By: #### L IPA, CMP, CRP, NAT #### [facility] [address] [place] [address] Dr. Keturah Fisher Erythrocyte distribution width (RBC) [Ratio] 13.2 % Normal 11.0-15.0 [facility] Comment on above: Performed By: #### L IPA, CMP, CRP, NAT #### [facility] [address] [place] [address] Dr. Keturah Fisher Hematocrit (Bld) [Volume fraction] 44.7 % Normal 36.0-48.0 [facility] Comment on above: Performed By: #### L IPA, CMP, CRP, NAT #### [facility] [address] [place] [address] Dr. Keturah Fisher Hemoglobin (Bld) [Mass/Vol] 14.7 g/dL Normal 12.0-16.0 [facility] Comment on above: Performed By: #### L IPA, CMP, CRP, NAT #### [facility] [address] [place] [address] Dr. Keturah Fisher IG # 0.03 10e3/ul Normal 0.00-0.03 [facility] Comment on above: Performed By: #### L IPA, CMP, CRP, NAT #### [facility] [address] [place] [address] Dr. Keturah Fisher IG % 0.3 % Normal 0.0-0.5 [facility] Comment on above: Performed By: #### L IPA, CMP, CRP, NAT #### [facility] [address] [place] [address] Dr. Keturah Fisher LYMPH # 3.6 103/ul Normal 1.2-3.8 [facility] Comment on above: Performed By: #### L IPA, CMP, CRP, NAT #### [facility] [address] [place] [address] Dr. Keturah Fisher Lymphocytes/100 WBC (Bld) 32.7 % Normal 20.5-60.0 [facility] Comment on above: Performed By: #### L IPA, CMP, CRP, NAT #### [facility] [address] [place] [address] Dr. Keturah Fisher MANUAL DIFF REQ NO Normal [facility] Comment on above: Performed By: #### L IPA, CMP, CRP, NAT #### [facility] [address] [place] [address] Dr. Keturah Fisher MCH (RBC) [Entitic mass] 32.2 pg Normal 26.7-34.0 [facility] Comment on above: Performed By: #### L IPA, CMP, CRP, NAT #### [facility] [address] [place] [address] Dr. Keturah Fisher MCHC (RBC) [Mass/Vol] 32.9 g/dL Normal 29.9-35.2 [facility] Comment on above: Performed By: #### L IPA, CMP, CRP, NAT #### [facility] [address] [place] [address] Dr. Keturah Fisher MCV (RBC) [Entitic vol] 98.0 fL Normal 81.0-99.0 [facility] Comment on above: Performed By: #### L IPA, CMP, CRP, NAT #### [facility] [address] [place] [address] Dr. Keturah Fisher MONO # 1.1 103/ul Critically high 0.3-0.8 [facility] Comment on above: Performed By: #### L IPA, CMP, CRP, NAT #### [facility] [address] [place] [address] Dr. Keturah Fisher Monocytes/100 WBC (Bld) 9.7 % Normal 1.7-12.0 [facility] Comment on above: Performed By: #### L IPA, CMP, CRP, NAT #### [facility] [address] [place] [address] Dr. Keturah Fisher NEUT # 6.1 103/ul Normal 1.4-6.5 [facility] Comment on above: Performed By: #### L IPA, CMP, CRP, NAT #### [facility] [address] [place] [address] Dr. Keturah Fisher Neutrophils/100 WBC (Bld) 55.5 % Normal 43.0-75.0 [facility] Comment on above: Performed By: #### L IPA, CMP, CRP, NAT #### [facility] [address] [place] [address] Dr. Keturah Fisher Platelet mean volume (Bld) [Entitic vol] 9.7 fL Normal 9.5-13.5 [facility] Comment on above: Performed By: #### L IPA, CMP, CRP, NAT #### [facility] [address] [place] [address] Dr. Keturah Fisher PLT 274 103/ul Normal 150-450 [facility] Comment on above: Performed By: #### L IPA, CMP, CRP, NAT #### [facility] [address] [place], [place] [address] Dr. Keturah Fisher RBC 4.56 106/ul Normal 4.20-5.40 [facility] Comment on above: Performed By: #### L IPA, CMP, CRP, NAT #### [facility] [address] [place], [place] [address] Dr. Keturah Fisher WBC 10.9 103/ul Normal 4.0-11.0 [facility] Comment on above: Performed By: #### L IPA, CMP, CRP, NAT #### [facility] [address] [address] [address] Keturah Fisher CRPon 12-13-2021 CRP [Mass/Vol] mg/L Normal <=1.0 [facility] Comment on above: Performed By: #### L IPA, CMP, CRP, NAT #### [facility] [address] [place] [address] ABD/PELV W CONon [...] by: AGUSTIN HIGHTOWER Date: 2021-12-13 20:50 Normal [facility] LIPASEon 12-13-2021 Lipase [Catalytic activity/Vol] 1496.0 U/L Critically high 73.0-393.0 [facility] Comment on above: Performed By: #### L IPA, CMP, CRP, NAT #### [facility] [address] [place] [address] Dr. Keturah Fisher PROF 14(COMP METB)on 022 Albumin [Mass/Vol] 4.0 g/dL Normal 3.4-5.0 [facility] Comment on above: Performed By: #### L IPA, CMP, CRP, NAT #### [facility] [address] [place] [address] Dr. Keturah Fisher Albumin/Globulin [Mass ratio] 1.0 {ratio} Normal [facility] Comment on above: Performed By: #### L IPA, CMP, CRP, NAT #### [facility] [address] [place] [address] Dr. Keturah Fisher ALP [Catalytic activity/Vol] 166 U/L Critically high 46-116 [facility] Comment on above: Performed By: #### L IPA, CMP, CRP, NAT #### [facility] [address] [place] [address] Dr. Keturah Fisher ALT [Catalytic activity/Vol] 19 U/L Normal 14-59 [facility] Comment on above: Performed By: #### L IPA, CMP, CRP, NAT #### [facility] [address] [place] [address] Dr. Keturah Fisher Anion gap [Moles/Vol] 9.5 mmol/L Normal [facility] Comment on above: Performed By: #### L IPA, CMP, CRP, NAT #### [facility] [address] [address] [address] Keturah Fisher AST [Catalytic activity/Vol] 16 U/L Normal 15-37 [facility] Comment on above: Performed By: #### L IPA, CMP, CRP, NAT #### [facility] [address] [address] [address] Keturah Fisher Bilirubin [Mass/Vol] 0.1 mg/dL Critically low 0.2-1.0 [facility] Comment on above: Performed By: #### L IPA, CMP, CRP, NAT #### [facility] [address] [address] [address] Keturah Fisher Calcium [Mass/Vol] 9.6 mg/dL Normal 8.5-10.1 [facility] Comment on above: Performed By: #### L IPA, CMP, CRP, NAT #### [facility] [address] [address] [address] Keturah Fisher Chloride [Moles/Vol] 104 mmol/L Normal 98-107 [facility] Comment on above: Performed By: #### L IPA, CMP, CRP, NAT #### [facility] [address] [address] [address] Keturah Fisher CO2 [Moles/Vol] 29.7 mmol/L Normal 21.0-32.0 [facility] Comment on above: Performed By: #### L IPA, CMP, CRP, NAT #### [facility] [address] [address] [address] Keturah Fisher Creatinine [Mass/Vol] 0.85 mg/dL Normal 0.55-1.02 [facility] Comment on above: Performed By: #### L IPA, CMP, CRP, NAT #### [facility] [address] [address] [address] Keturah Fisher EGFR-AF IRAQI >60 Normal >=60 [facility] Comment on above: Performed By: #### L IPA, CMP, CRP, NAT #### [facility] [address] [address] [address] Keturah Fisher EGFR-NON AF IRAQI >60 Normal >=60 [facility] Comment on above: Performed By: #### L IPA, CMP, CRP, NAT #### [facility] [address] [address] [address] Keturah Fisher Globulin (S) [Mass/Vol] 3.9 g/dL Normal [facility] Comment on above: Performed By: #### L IPA, CMP, CRP, NAT #### [facility] [address] [address] [address] Keturah Fisher Glucose [Mass/Vol] 70 mg/dL Critically low 74-106 [facility] Comment on above: Performed By: #### L IPA, CMP, CRP, NAT #### [facility] [address] [place] [address] Dr. Keturah Fisher Potassium [Moles/Vol] 3.2 mmol/L Critically low 3.5-5.1 [facility] Comment on above: Performed By: #### L IPA, CMP, CRP, NAT #### [facility] [address] [place] [address] Dr. Keturah Fisher Protein [Mass/Vol] 7.9 g/dL Normal 6.4-8.2 [facility] Comment on above: Performed By: #### L IPA, CMP, CRP, NAT #### [facility] [address] [address] [address] Keturah Fisher Sodium [Moles/Vol] 140 mmol/L Normal 136-145 [facility] Comment on above: Performed By: #### L IPA, CMP, CRP, NAT #### [facility] [address] [place] [address] Dr. Keturah Fisher Urea nitrogen [Mass/Vol] 8.0 mg/dL Normal 7.0-18.0 [facility] Comment on above: Performed By: #### L IPA, CMP, CRP, NAT #### [facility] [address] [place] [address] Dr. Keturah Fisher Urea nitrogen/Creatinine [Mass ratio] 9.4 mg/mg Normal [facility] Comment on above: Performed By: #### L IPA, CMP, CRP, NAT #### [facility] [address] [place] [address] Dr. Keturah Fisher AMYLASEon 12-05-2021 Amylase [Catalytic activity/Vol] 223 U/L Critically high 25-115 [facility] Comment on above: Performed By: #### L IPA, CMP, CRP, NAT #### [facility] [address] [place] [address] Dr. Keturah Fisher CBC AUTO DIFFon 12-05-2021 BASO # 0.1 103/ul Normal 0.0-0.1 [facility] Comment on above: Performed By: #### C BC #### [facility] [address] [place] [address] Dr. Keturah Fisher Basophils/100 WBC (Bld) 0.7 % Normal 0.2-2.0 [facility] Comment on above: Performed By: #### C BC #### [facility] [address] [place] [address] Dr. Keturah Fisher EO # 0.2 103/ul Normal 0.0-0.7 [facility] Comment on above: Performed By: #### C BC #### [facility] [address] [place] [address] Dr. Keturah Fisher Eosinophils/100 WBC (Bld) 1.7 % Normal 0.9-7.0 [facility] Comment on above: Performed By: #### C BC #### [facility] [address] [place] [address] Dr. Keturah Fisher Erythrocyte distribution width (RBC) [Ratio] 13.0 % Normal 11.0-15.0 [facility] Comment on above: Performed By: #### C BC #### [facility] [address] [place] [address] Dr. Keturah Fisher Hematocrit (Bld) [Volume fraction] 44.9 % Normal 36.0-48.0 [facility] Comment on above: Performed By: #### C BC #### [facility] [address] [place] [address] Dr. Keturah Fisher Hemoglobin (Bld) [Mass/Vol] 15.1 g/dL Normal 12.0-16.0 [facility] Comment on above: Performed By: #### C BC #### [facility] [address] [place] [address] Dr. Keturah Fisher IG # 0.02 10e3/ul Normal 0.00-0.03 [facility] Comment on above: Performed By: #### C BC #### [facility] [address] [place] [address] Dr. Keturah Fisher IG % 0.2 % Normal 0.0-0.5 [facility] Comment on above: Performed By: #### C BC #### [facility] [address] [place] [address] Dr. Keturah Fisher LYMPH # 2.8 103/ul Normal 1.2-3.8 [facility] Comment on above: Performed By: #### C BC #### [facility] [address] [place] [address] Dr. Keturah Fisher Lymphocytes/100 WBC (Bld) 29.8 % Normal 20.5-60.0 [facility] Comment on above: Performed By: #### C BC #### [facility] [address] [place] [address] Dr. Keturah Fisher MANUAL DIFF REQ NO Normal [facility] Comment on above: Performed By: #### C BC #### [facility] [address] [place] [address] Dr. Keturah Fisher MCH (RBC) [Entitic mass] 32.4 pg Normal 26.7-34.0 [facility] Comment on above: Performed By: #### C BC #### [facility] [address] [place] [address] Dr. Keturah Fisher MCHC (RBC) [Mass/Vol] 33.6 g/dL Normal 29.9-35.2 [facility] Comment on above: Performed By: #### C BC #### [facility] [address] [place] [address] Dr. Keturah Fisher MCV (RBC) [Entitic vol] 96.4 fL Normal 81.0-99.0 [facility] Comment on above: Performed By: #### C BC #### [facility] [address] [place] [address] Dr. Keturah Fisher MONO # 0.6 103/ul Normal 0.3-0.8 [facility] Comment on above: Performed By: #### C BC #### [facility] [address] [place] [address] Dr. Keturah Fisher Monocytes/100 WBC (Bld) 6.3 % Normal 1.7-12.0 [facility] Comment on above: Performed By: #### C BC #### [facility] [address] [place] [address] Dr. Keturah Fisher NEUT # 5.7 103/ul Normal 1.4-6.5 [facility] Comment on above: Performed By: #### C BC #### [facility] [address] [place] [address] Dr. Keturah Fisher Neutrophils/100 WBC (Bld) 61.3 % Normal 43.0-75.0 [facility] Comment on above: Performed By: #### C BC #### [facility] [address] [place] [address] Dr. Keturah Fisher Platelet mean volume (Bld) [Entitic vol] 10.7 fL Normal 9.5-13.5 [facility] Comment on above: Performed By: #### C BC #### [facility] [address] [place] [address] Dr. Keturah Fisher PLT 217 103/ul Normal 150-450 [facility] Comment on above: Performed By: #### C BC #### [facility] [address] [place] [address] Dr. Keturah Fisher RBC 4.66 106/ul Normal 4.20-5.40 [facility] Comment on above: Performed By: #### C BC #### [facility] [address] [place] [address] Dr. Keturah Fisher WBC 9.2 103/ul Normal 4.0-11.0 [facility] Comment on above: Performed By: #### C BC #### [facility] [address] [place] [address] Dr. Keturah Fisher LIPASEon 12-05-2021 Lipase [Catalytic activity/Vol] 725.0 U/L Critically high 73.0-393.0 [facility] Comment on above: Performed By: #### L IPA, CMP, CRP, NAT #### [facility] [address] [address] [address] Keturah Fisher PROF 14(COMP METB)on 022 Albumin [Mass/Vol] 4.2 g/dL Normal 3.4-5.0 [facility] Comment on above: Performed By: #### L IPA, CMP, CRP, NAT #### [facility] [address] [place] [address] Dr. Keturah Fisher Albumin/Globulin [Mass ratio] 1.2 {ratio} Normal [facility] Comment on above: Performed By: #### L IPA, CMP, CRP, NAT #### [facility] [address] [place] [address] Dr. Keturah Fisher ALP [Catalytic activity/Vol] 158 U/L Critically high 46-116 [facility] Comment on above: Performed By: #### L IPA, CMP, CRP, NAT #### [facility] [address] [place] [address] Dr. Keturah Fisher ALT [Catalytic activity/Vol] 20 U/L Normal 14-59 [facility] Comment on above: Performed By: #### L IPA, CMP, CRP, NAT #### [facility] [address] [place] [address] Dr. Keturah Fisher Anion gap [Moles/Vol] 14.0 mmol/L Normal [facility] Comment on above: Performed By: #### L IPA, CMP, CRP, NAT #### [facility] [address] [place] [address] Dr. Keturah Fisher AST [Catalytic activity/Vol] 27 U/L Normal 15-37 [facility] Comment on above: Performed By: #### L IPA, CMP, CRP, NAT #### [facility] [address] [address] [address] Keturah Fisher Bilirubin [Mass/Vol] 0.3 mg/dL Normal 0.2-1.0 [facility] Comment on above: Performed By: #### L IPA, CMP, CRP, NAT #### [facility] [address] [place] [address] Dr. Keturah Fisher Calcium [Mass/Vol] 10.1 mg/dL Normal 8.5-10.1 [facility] Comment on above: Performed By: #### L IPA, CMP, CRP, NAT #### [facility] [address] [place] [address] Dr. Keturah Fisher Chloride [Moles/Vol] 105 mmol/L Normal 98-107 [facility] Comment on above: Performed By: #### L IPA, CMP, CRP, NAT #### [facility] [address] [place] [address] Dr. Keturah Fisher CO2 [Moles/Vol] 24.9 mmol/L Normal 21.0-32.0 [facility] Comment on above: Performed By: #### L IPA, CMP, CRP, NAT #### [facility] [address] [place] [address] Dr. Keturah Fisher Creatinine [Mass/Vol] 0.77 mg/dL Normal 0.55-1.02 [facility] Comment on above: Performed By: #### L IPA, CMP, CRP, NAT #### [facility] [address] [place] [address] Dr. Keturah Fisher EGFR-AF IRAQI >60 Normal >=60 [facility] Comment on above: Performed By: #### L IPA, CMP, CRP, NAT #### [facility] [address] [place] [address] Dr. Keturah Fisher EGFR-NON AF IRAQI >60 Normal >=60 [facility] Comment on above: Performed By: #### L IPA, CMP, CRP, NAT #### [facility] [address] [place] [address] Dr. Keturah Fisher Globulin (S) [Mass/Vol] 3.5 g/dL Normal [facility] Comment on above: Performed By: #### L IPA, CMP, CRP, NAT #### [facility] [address] [address] [address] Keturah Fisher Glucose [Mass/Vol] 91 mg/dL Normal 74-106 [facility] Comment on above: Performed By: #### L IPA, CMP, CRP, NAT #### [facility] [address] [address] [address] Keturah Fisher Potassium [Moles/Vol] 3.9 mmol/L Normal 3.5-5.1 [facility] Comment on above: Performed By: #### L IPA, CMP, CRP, NAT #### [facility] [address] [place] [address] Dr. Keturah Fisher Protein [Mass/Vol] 7.7 g/dL Normal 6.4-8.2 [facility] Comment on above: Performed By: #### L IPA, CMP, CRP, NAT #### [facility] [address] [address] [address] Keturah Fisher Sodium [Moles/Vol] 140 mmol/L Normal 136-145 [facility] Comment on above: Performed By: #### L IPA, CMP, CRP, NAT #### [facility] [address] [place] [address] Dr. Keturah Fisher Urea nitrogen [Mass/Vol] 8.0 mg/dL Normal 7.0-18.0 [facility] Comment on above: Performed By: #### L IPA, CMP, CRP, NAT #### [facility] [address] [place] [address] Dr. Keturah Fisher Urea nitrogen/Creatinine [Mass ratio] 10.4 mg/mg Normal [facility] Comment on above: Performed By: #### L IPA, CMP, CRP, NAT #### [facility] [address] [place] [address] Dr. Keturah Fisher AMYLASEon 10-11-2021 Amylase [Catalytic activity/Vol] 134 U/L Critically high 25-115 [facility] Comment on above: Performed By: #### C BC #### [facility] [address] [place] [address] Dr. Keturah Fisher CBC AUTO DIFFon 10-11-2021 BASO # 0.1 103/ul Normal 0.0-0.1 [facility] Comment on above: Performed By: #### L IPA, CMP, CRP, NAT #### [facility] [address] [place] [address] Dr. Keturah Fisher Basophils/100 WBC (Bld) 1.0 % Normal 0.2-2.0 [facility] Comment on above: Performed By: #### L IPA, CMP, CRP, NAT #### [facility] [address] [place] [address] Dr. Keturah Fisher EO # 0.2 103/ul Normal 0.0-0.7 [facility] Comment on above: Performed By: #### L IPA, CMP, CRP, NAT #### [facility] [address] [place] [address] Dr. Keturah Fisher Eosinophils/100 WBC (Bld) 2.0 % Normal 0.9-7.0 [facility] Comment on above: Performed By: #### L IPA, CMP, CRP, NAT #### [facility] [address] [place] [address] Dr. Keturah Fisher Erythrocyte distribution width (RBC) [Ratio] 13.2 % Normal 11.0-15.0 [facility] Comment on above: Performed By: #### L IPA, CMP, CRP, NAT #### [facility] [address] [place] [address] Dr. Keturah Fisher Hematocrit (Bld) [Volume fraction] 44.7 % Normal 36.0-48.0 [facility] Comment on above: Performed By: #### L IPA, CMP, CRP, NAT #### [facility] [address] [place] [address] Dr. Keturah Fisher Hemoglobin (Bld) [Mass/Vol] 15.0 g/dL Normal 12.0-16.0 [facility] Comment on above: Performed By: #### L IPA, CMP, CRP, NAT #### [facility] [address] [address] [address] Keturah Fisher IG # 0.02 10e3/ul Normal 0.00-0.03 [facility] Comment on above: Performed By: #### L IPA, CMP, CRP, NAT #### [facility] [address] [address] [address] Keturah Fisher IG % 0.2 % Normal 0.0-0.5 [facility] Comment on above: Performed By: #### L IPA, CMP, CRP, NAT #### [facility] [address] [place] [address] Dr. Keturah Fisher LYMPH # 4.1 103/ul Critically high 1.2-3.8 [facility] Comment on above: Performed By: #### L IPA, CMP, CRP, NAT #### [facility] [address] [place] [address] Dr. Keturah Fisher Lymphocytes/100 WBC (Bld) 38.9 % Normal 20.5-60.0 [facility] Comment on above: Performed By: #### L IPA, CMP, CRP, NAT #### [facility] [address] [address] [address] Keturah Fisher MANUAL DIFF REQ NO Normal [facility] Comment on above: Performed By: #### L IPA, CMP, CRP, NAT #### [facility] [address] [address] [address] Keturah Fisher MCH (RBC) [Entitic mass] 32.1 pg Normal 26.7-34.0 [facility] Comment on above: Performed By: #### L IPA, CMP, CRP, NAT #### [facility] [address] [address] [address] Keturah Fisher MCHC (RBC) [Mass/Vol] 33.6 g/dL Normal 29.9-35.2 [facility] Comment on above: Performed By: #### L IPA, CMP, CRP, NAT #### [facility] [address] [address] [address] Keturah Fisher MCV (RBC) [Entitic vol] 95.7 fL Normal 81.0-99.0 [facility] Comment on above: Performed By: #### L IPA, CMP, CRP, NAT #### [facility] [address] [place] [address] Dr. Keturah Fisher MONO # 0.9 103/ul Critically high 0.3-0.8 [facility] Comment on above: Performed By: #### L IPA, CMP, CRP, NAT #### [facility] [address] [place] [address] Dr. Keturah Fisher Monocytes/100 WBC (Bld) 8.8 % Normal 1.7-12.0 [facility] Comment on above: Performed By: #### L IPA, CMP, CRP, NAT #### [facility] [address] [place] [address] Dr. Keturah Fisher NEUT # 5.2 103/ul Normal 1.4-6.5 [facility] Comment on above: Performed By: #### L IPA, CMP, CRP, NAT #### [facility] [address] [place] [address] Dr. Keturah Fisher Neutrophils/100 WBC (Bld) 49.1 % Normal 43.0-75.0 [facility] Comment on above: Performed By: #### L IPA, CMP, CRP, NAT #### [facility] [address] [place] [address] Dr. Keturah Fisher Platelet mean volume (Bld) [Entitic vol] 9.8 fL Normal 9.5-13.5 [facility] Comment on above: Performed By: #### L IPA, CMP, CRP, NAT #### [facility] [address] [place] [address] Dr. Keturah Fishre PLT 299 103/ul Normal 150-450 [facility] Comment on above: Performed By: #### L IPA, CMP, CRP, NAT #### [facility] [address] [place] [address] Dr. Keturah Fisher RBC 4.67 106/ul Normal 4.20-5.40 [facility] Comment on above: Performed By: #### L IPA, CMP, CRP, NAT #### [facility] [address] [place] [address] Dr. Keturah Fisher WBC 10.5 103/ul Normal 4.0-11.0 [facility] Comment on above: Performed By: #### L IPA, CMP, CRP, NAT #### [facility] [address] [place] [address] Dr. Keturah Fisher LIPASEon 10-11-2021 Lipase [Catalytic activity/Vol] 240.0 U/L Normal 73.0-393.0 [facility] Comment on above: Performed By: #### C BC #### [facility] [address] [place] [address] Dr. Keturah Fisher PROF 14(COMP METB)on 022 Albumin [Mass/Vol] 4.3 g/dL Normal 3.4-5.0 [facility] Comment on above: Performed By: #### C BC #### [facility] [address] [place] [address] Dr. Keturah Fisher Albumin/Globulin [Mass ratio] 1.3 {ratio} Normal [facility] Comment on above: Performed By: #### C BC #### [facility] [address] [place] [address] Dr. Keturah Fisher ALP [Catalytic activity/Vol] 162 U/L Critically high 46-116 [facility] Comment on above: Performed By: #### C BC #### [facility] [address] [place] [address] Dr. Keturah Fisher ALT [Catalytic activity/Vol] 21 U/L Normal 14-59 [facility] Comment on above: Performed By: #### C BC #### [facility] [address] [place] [address] Dr. Keturah Fisher Anion gap [Moles/Vol] 15.1 mmol/L Normal [facility] Comment on above: Performed By: #### C BC #### [facility] [address] [place] [address] Dr. Keturah Fisher AST [Catalytic activity/Vol] 16 U/L Normal 15-37 [facility] Comment on above: Performed By: #### C BC #### [facility] [address] [address] [address] Keturah Fisher Bilirubin [Mass/Vol] 0.2 mg/dL Normal 0.2-1.0 [facility] Comment on above: Performed By: #### C BC #### [facility] [address] [address] [address] Keturah Fisher Calcium [Mass/Vol] 9.6 mg/dL Normal 8.5-10.1 [facility] Comment on above: Performed By: #### C BC #### [facility] [address] [address] [address] Keturah Fisher Chloride [Moles/Vol] 104 mmol/L Normal 98-107 [facility] Comment on above: Performed By: #### C BC #### [facility] [address] [place] [address] Dr. Keturah Fisher CO2 [Moles/Vol] 24.6 mmol/L Normal 21.0-32.0 [facility] Comment on above: Performed By: #### C BC #### [facility] [address] [place] [address] Dr. Keturah Fisher Creatinine [Mass/Vol] 0.88 mg/dL Normal 0.55-1.02 [facility] Comment on above: Performed By: #### C BC #### [facility] [address] [place] [address] Dr. Keturah Fisher EGFR-AF IRAQI >60 Normal >=60 [facility] Comment on above: Performed By: #### C BC #### [facility] [address] [place] [address] Dr. Keturah Fisher EGFR-NON AF IRAQI >60 Normal >=60 [facility] Comment on above: Performed By: #### C BC #### [facility] [address] [place] [address] Dr. Keturah Fisher Globulin (S) [Mass/Vol] 3.3 g/dL Normal [facility] Comment on above: Performed By: #### C BC #### [facility] [address] [place], [place] [id number] Dr. Keturah Fisher Glucose [Mass/Vol] 111 mg/dL Critically high 74-106 [facility] Comment on above: Performed By: #### C BC #### [facility] [address] [address] [address] Keturah Fisher Potassium [Moles/Vol] 3.7 mmol/L Normal 3.5-5.1 [facility] Comment on above: Performed By: #### C BC #### [facility] [address] [address] [address] Keturah Fisher Protein [Mass/Vol] 7.6 g/dL Normal 6.4-8.2 [facility] Comment on above: Performed By: #### C BC #### [facility] [address] [address] [address] Keturah Fisher Sodium [Moles/Vol] 140 mmol/L Normal 136-145 [facility] Comment on above: Performed By: #### C BC #### [facility] [address] [address] [address] Keturah Fisher Urea nitrogen [Mass/Vol] 11.0 mg/dL Normal 7.0-18.0 [facility] Comment on above: Performed By: #### C BC #### [facility] [address] [address] [address] Keturah Fisher Urea nitrogen/Creatinine [Mass ratio] 12.5 mg/mg Normal [facility] Comment on above: Performed By: #### C BC #### [facility] [address] [address] [address] Keturah Fisher PROTIMEon 10-11-2021 INR Coag (PPP) [Relative time] 0.94 {INR} Normal [facility] Comment on above: Performed By: #### P T, PTT ####[facility] [id number] [address]Dr[address] Keturah Fisher INR GUIDELINES SEE BELOW Normal [facility] Comment on above: Result Comment: KARLY RED INR: 2.0 - 3.0 CONDITIONS NOT LISTED BELOW 2.5 - 3.5 FOR PROSTHETIC HEART VALVE REPLACEMENT 2.5 - 3.5 RECURRENT THROMBOSIS Performed By: #### P T, PTT ####[facility] [id number] [place], [place] [address]Bc. Keturah Fisher PT Coag (PPP) [Time] 10.2 s Normal 9.0-11.6 [facility] Comment on above: Performed By: #### P T, PTT ####[facility] [id number] [place], [place] [address]Me. Keturah Fisher PTTon 10-11-2021 aPTT Coag (Bld) [Time] 28.0 s Normal 22.3-36.2 [facility] Comment on above: Performed By: #### P T, PTT ####[facility] [id number] [place], [place] [address]Bn. Keturah Fisher Amphetamine Screen Ql (U)Ord ered By: Christa Lopez on 10-09-2021 Amphetamines Ql (U) Negative Negative [facility] Barbiturates [Presence] in U rineOrdered By: Christa Lopez on 10-09-2021 Barbiturates Ql (U) Negative Negative [facility] Basophils Auto (Bld) [#/Vol] Ordered By: Christa Lopez on 10-09-2021 Basophils (Bld) [#/Vol] 0.1 10*3/uL 0.0-0.2 [facility] Basophils/100 WBC Auto (Bld) Ordered By: Christa oLpez on 10-09-2021 Basophils/100 WBC (Bld) 0.9 % . [facility] Benzodiazepines [Presence] i n UrineOrdered By: Christa Lopez on 10-09-2021 Benzodiazepines Ql (U) Negative Negative [facility] Bilirubin Auto test strip Ql (U)Ordered By: Christa Lopez on 10-09-2021 Bilirubin Ql (U) Negative Negative [facility] Blood hemoglobin measurement (mass/volume)Ordered By: Christa Lopez on 10-09-2021 Hemoglobin (Bld) [Mass/Vol] 15.7 g/dL 11.8-15.4 [facility] Blood leukocytes automated c ount (number/volume)Ordered By: Christa Lopez on 10-09-2021 WBC (Bld) [#/Vol] 10.1 10*3/uL 4.5-11.0 [facility] Body fluid albumin measureme nt (mass/volume)Ordered By: Christa Lopez on 10-09-2021 Albumin (Body fld) [Mass/Vol] 4.5 g/dL 3.2-5.5 [facility] Cannabinoids [Presence] in U rine by Screen methodOrdered By: Christa Lopez on 10-09-2021 Cannabinoids Screen Ql (U) Negative Negative [facility] Comment on above: These are unconfirme d results and should not be used for legal purposes. Drug Cut-Off Concentration: AMPH 1000 ng/mL BAILEY 200 ng/mL JAKE 200 ng/mL COCM 300 ng/mL OP 300 ng/mL PCP 25 ng/mL THC 20 ng/mL Creatinine and Glomerular fi ltration rate.predicted panel (S/P/Bld)Ordered By: Christa Lopez on 10-09-2021 Creatinine [Mass/Vol] 0.85 mg/dL 0.44-1.[address] [facility] Eosinophils Auto (Bld) [#/Vo l]Ordered By: Christa Lopez on 10-09-2021 Eosinophils (Bld) [#/Vol] 0.1 10*3/uL 0.0-0.45 [facility] Eosinophils/100 WBC Auto (Bl d)Ordered By: Christa Lopez on 10-09-2021 Eosinophils/100 WBC (Bld) 1.2 % . [facility] Erythrocyte distribution wid th Auto (RBC) [Ratio]Ordered By: Christa Lopez on 10-09-2021 Erythrocyte distribution width (RBC) [Ratio] 13.5 % 11.9-15.3 [facility] Estimated glomerular filtrat ion rate (GFR) non- AmericanOrdered By: Christa Lopez on 10-09-2021 GFR/1.73 sq M.predicted among non-blacks MDRD (S/P/Bld) [Vol rate/Area] > 60 mL/Min [facility] Globulin Calc (S) [Mass/Vol] Ordered By: Christa Lopez on 10-09-2021 Globulin (S) [Mass/Vol] 2.9 g/dL [facility] Hematocrit Auto (Bld) [Volum e fraction]Ordered By: Christa Lopez on 10-09-2021 Hematocrit (Bld) [Volume fraction] 47.1 % 34.0-46.4 [facility] Ketones Auto test strip (U) [Mass/Vol]Ordered By: Christa Lopez on 10-09-2021 Ketones (U) [Mass/Vol] Negative Negative [facility] - Chemistry and C hemistry - challengeOrdered By: Christa Lopez on 10-09-2021 Lipase [Catalytic activity/Vol] 242.0 U/L 22-51 [facility] - Drug toxicology Ordered By: Christa Lopez on 10-09-2021 Opiates Ql (U) Negative Negative [facility] - Hematology and Cell countsOrdered By: Christa Lopez on 10-09-2021 Nucleated RBC/100 WBC (Bld) [Ratio] 0.1 % 0-0.5 [facility] Lymphocytes Auto (Bld) [#/Vo l]Ordered By: Christa Lopez on 10-09-2021 Lymphocytes (Bld) [#/Vol] 2.6 10*3/uL 1.00-4.8 [facility] Lymphocytes/100 WBC Auto (Bl d)Ordered By: Christa Lopez on 10-09-2021 Lymphocytes/100 WBC (Bld) 26.0 % . [facility] MCH Auto (RBC) [Entitic mass ]Ordered By: Christa Lopez on 10-09-2021 MCH (RBC) [Entitic mass] 32.4 pg 24.7-34.3 [facility] MCHC Auto (RBC) [Mass/Vol]Or dered By: Christa Lopez on 10-09-2021 MCHC (RBC) [Mass/Vol] 33.3 g/dL 32.0-35.[address] [facility] MCV Auto (RBC) [Entitic vol] Ordered By: Christa Lopez on 10-09-2021 MCV (RBC) [Entitic vol] 97.3 fL 80-100 [facility] Monocytes Auto (Bld) [#/Vol] Ordered By: Christa Lopez on 10-09-2021 Monocytes (Bld) [#/Vol] 0.8 10*3/uL 0.0-0.8 [facility] Monocytes/100 WBC Auto (Bld) Ordered By: Christa Lopez on 10-09-2021 Monocytes/100 WBC (Bld) 7.6 % . [facility] Neutrophils Auto (Bld) [#/Vo l]Ordered By: Christa Lopez on 10-09-2021 Neutrophils (Bld) [#/Vol] 6.5 10*3/uL 1.8-7.7 [facility] Neutrophils/100 WBC Auto (Bl d)Ordered By: Christa Lopez on 10-09-2021 Neutrophils/100 WBC (Bld) 64.3 % . [facility] No Panel InformationOrdered By: Christa Lpoez on 10-09-2021 Estimated GFR () > 60 mL/Min [facility] Comment on above: GFR estimated refere nce range: According to KDOQI guidelines, <60 ml/min/1.73m2 is sufficient to diagnose a patient with chronic kidney disease. Pharmacy Creatinine Clearance (Chem 61.23 [facility] Phencyclidine Screen Ql (U)O rdered By: Christa Lopez on 10-09-2021 Phencyclidine Ql (U) Negative Negative [facility] Platelet mean volume Auto (B ld) [Entitic vol]Ordered By: Christa Lopez on 10-09-2021 Platelet mean volume (Bld) [Entitic vol] 8.5 fL 6.3-10.7 [facility] Platelets Auto (Bld) [#/Vol] Ordered By: Christa Lopez on 10-09-2021 Platelets (Bld) [#/Vol] 284 10*3/uL 150-450 [facility] Protein Auto test strip (U) [Mass/Vol]Ordered By: Christa Lopez on 10-09-2021 Protein (U) [Mass/Vol] Negative Negative [facility] Protein [Mass/volume] in Ser um or PlasmaOrdered By: Christa Lopez on 10-09-2021 Protein [Mass/Vol] 7.4 g/dL 6.1-7.9 [facility] RBC Auto (Bld) [#/Vol]Ordere d By: Christa Lopez on 10-09-2021 RBC (Bld) [#/Vol] 4.84 10*6/uL 3.60-5.00 [facility] Serum or plasma alanine hughes otransferase measurement without P-5'-P (enzymatic activiOrdered By: Christa Lopez on 10-09-2021 ALT No additional P-5'-P [Catalytic activity/Vol] 19 U/L 10-60 [facility] Serum or plasma albumin/glob ulin mass ratioOrdered By: Christa Lopez on 10-09-2021 Albumin/Globulin [Mass ratio] 1.6 {ratio} [facility] Serum or plasma alkaline jaqueline sphatase measurement (enzymatic activity/volume)Ordered By: Christa Lopez on 10-09-2021 ALP [Catalytic activity/Vol] 138 U/L 32-92 [facility] Serum or plasma aspartate am inotransferase measurement (enzymatic activity/volume)Ordered By: Christa Lopez on 10-09-2021 AST [Catalytic activity/Vol] 31 U/L 10-42 [facility] Serum or plasma calcium priscilla urement (mass/volume)Ordered By: Christa Lopez on 10-09-2021 Calcium [Mass/Vol] 10.3 mg/dL 8.2-10.2 [facility] Serum or plasma chloride daron surement (moles/volume)Ordered By: Christa Lopez on 10-09-2021 Chloride [Moles/Vol] 100 mmol/L 95-114 [facility] Serum or plasma glucose priscilla urement (mass/volume)Ordered By: Christa Lopez on 10-09-2021 Glucose [Mass/Vol] 75 mg/dL 70-100 [facility] Comment on above: ADA recommended refe rence range Random Glucose Reference Range is dependent on time and content of last meal. Glucose of more than 200 mg/dL in a nonstressed, ambulatory subject supports the diagnosis of Diabetes Mellitus. Serum or plasma potassium me asurement (moles/volume)Ordered By: Christa Lopez on 10-09-2021 Potassium [Moles/Vol] 3.9 mmol/L 3.5-5.[address] [facility] Serum or plasma sodium measu rement (moles/volume)Ordered By: Christa Lopez on 10-09-2021 Sodium [Moles/Vol] 136 mmol/L 136-146 [facility] Serum or plasma total biliru bin measurement (mass/volume)Ordered By: Christa Lopez on 10-09-2021 Bilirubin [Mass/Vol] 0.4 mg/dL 0.3-1.2 [facility] Serum or plasma total carbon dioxide measurement (moles/volume)Ordered By: Christa Lopez on 10-09-2021 CO2 [Moles/Vol] 24.1 mmol/L 22.0-30.0 [facility] Serum or plasma urea nitroge n measurement (mass/volume)Ordered By: Christa Lopez on 10-09-2021 Urea nitrogen [Mass/Vol] 12 mg/dL 9-23 [facility] Troponin I.cardiac [Mass/vol ume] in Serum or Plasma by High sensitivity methodOrdered By: Christa Lopez on 10-09-2021 Troponin I.cardiac High sensitivity method [Mass/Vol] 3 pg/mL 0-15 [facility] Urine appearanceOrdered By: Christa Lopez on 10-09-2021 Appearance (U) Clear Clear [facility] Urine cocaine detectionOrder ed By: Christa Lopez on 10-09-2021 Cocaine Ql (U) Negative Negative [facility] Urine colorOrdered By: Christa Lopez on 10-09-2021 Color (U) Yellow Yellow [facility] Urine glucose measurement by automated test strip (mass/volume)Ordered By: Christa Lopez on 10-09-2021 Glucose Auto test strip (U) [Mass/Vol] Normal mg/dL Normal [facility] Urine hemoglobin detection b y automated test stripOrdered By: Christa Lopez on 10-09-2021 Hemoglobin Auto test strip Ql (U) Negative Negative [facility] Urine leukocyte esterase det ection by automated test stripOrdered By: Christa Lopez on 10-09-2021 Leukocyte esterase Auto test strip Ql (U) Negative Negative [facility] Urine nitrite detection by a utomated test stripOrdered By: Christa Lopez on 10-09-2021 Nitrite Auto test strip Ql (U) Negative Negative [facility] Urobilinogen Auto test strip (U) [Mass/Vol]Ordered By: Christa Lopez on 10-09-2021 Urobilinogen (U) [Mass/Vol] Normal mg/dL Normal [facility] pH Auto test strip (U)Ordere d By: Christa Lopez on 10-09-2021 pH (U) 1.025 [pH] 1.001-1.03 0 [facility] pH (U) 5.5 [pH] 5.0-9.0 [facility] Albumin [Mass/volume] in Ser um or PlasmaOrdered By: Reinaldo Amor on 10-04-2021 Albumin [Mass/Vol] 3.6 g/dL 3.2-5.5 [facility] Basophils Auto (Bld) [#/Vol] Ordered By: Reinaldo Amor on 10-04-2021 Basophils (Bld) [#/Vol] 0.1 10*3/uL 0.0-0.2 [facility] Basophils/100 WBC Auto (Bld) Ordered By: Reinaldo Amor on 10-04-2021 Basophils/100 WBC (Bld) 0.8 % . [facility] Bilirubin Auto test strip Ql (U)Ordered By: Reinaldo Amor on 10-04-2021 Bilirubin Ql (U) Negative Negative [facility] Blood hemoglobin measurement (mass/volume)Ordered By: Reinaldo Amor on 10-04-2021 Hemoglobin (Bld) [Mass/Vol] 13.9 g/dL 11.8-15.4 [facility] Blood leukocytes automated c ount (number/volume)Ordered By: Reinaldo Amor on 10-04-2021 WBC (Bld) [#/Vol] 10.4 10*3/uL 4.5-11.0 [facility] Creatinine and Glomerular fi ltration rate.predicted panel (S/P/Bld)Ordered By: Reinaldo Amor on 10-04-2021 Creatinine [Mass/Vol] 0.73 mg/dL 0.44-1.[address] [facility] Direct bilirubin measurement Ordered By: Reinaldo Amor on 10-04-2021 Bilirubin.direct [Mass/Vol] mg/dL 0.0-0.4 [facility] Eosinophils Auto (Bld) [#/Vo l]Ordered By: Reinaldo Amor on 10-04-2021 Eosinophils (Bld) [#/Vol] 0.1 10*3/uL 0.0-0.45 [facility] Eosinophils/100 WBC Auto (Bl d)Ordered By: Reinaldo Amor on 10-04-2021 Eosinophils/100 WBC (Bld) 0.5 % . [facility] Erythrocyte distribution wid th Auto (RBC) [Ratio]Ordered By: Reinaldo Amor on 10-04-2021 Erythrocyte distribution width (RBC) [Ratio] 13.7 % 11.9-15.3 [facility] Estimated glomerular filtrat ion rate (GFR) non- AmericanOrdered By: Reinaldo Amor on 10-04-2021 GFR/1.73 sq M.predicted among non-blacks MDRD (S/P/Bld) [Vol rate/Area] > 60 mL/Min [facility] Globulin Calc (S) [Mass/Vol] Ordered By: Reinaldo Amor on 10-04-2021 Globulin (S) [Mass/Vol] 2.6 g/dL [facility] Hematocrit Auto (Bld) [Volum e fraction]Ordered By: Reinaldo Amor on 10-04-2021 Hematocrit (Bld) [Volume fraction] 41.1 % 34.0-46.4 [facility] Ketones Auto test strip (U) [Mass/Vol]Ordered By: Reinaldo Amor on 10-04-2021 Ketones (U) [Mass/Vol] Negative Negative [facility] Laboratory - Chemistry and C hemistry - challengeOrdered By: Reinaldo Amor on 10-04-2021 Lipase [Catalytic activity/Vol] 107.0 U/L 22-51 [facility] Laboratory - Hematology and Cell countsOrdered By: Reinaldo Amor on 10-04-2021 Nucleated RBC/100 WBC (Bld) [Ratio] 0.1 % 0-0.5 [facility] Lymphocytes Auto (Bld) [#/Vo l]Ordered By: Reinaldo Amor on 10-04-2021 Lymphocytes (Bld) [#/Vol] 2.5 10*3/uL 1.00-4.8 [facility] Lymphocytes/100 WBC Auto (Bl d)Ordered By: Reinaldo Amor on 10-04-2021 Lymphocytes/100 WBC (Bld) 24.1 % . [facility] MCH Auto (RBC) [Entitic mass ]Ordered By: Reinaldo Amor on 10-04-2021 MCH (RBC) [Entitic mass] 32.6 pg 24.7-34.3 [facility] MCHC Auto (RBC) [Mass/Vol]Or dered By: Reinaldo Amor on 10-04-2021 MCHC (RBC) [Mass/Vol] 33.8 g/dL 32.0-35.[address] [facility] MCV Auto (RBC) [Entitic vol] Ordered By: Reinaldo Amor on 10-04-2021 MCV (RBC) [Entitic vol] 96.5 fL 80-100 [facility] Monocytes Auto (Bld) [#/Vol] Ordered By: Reinaldo Amor on 10-04-2021 Monocytes (Bld) [#/Vol] 0.9 10*3/uL 0.0-0.8 [facility] Monocytes/100 WBC Auto (Bld) Ordered By: Reinaldo Amor on 10-04-2021 Monocytes/100 WBC (Bld) 8.4 % . [facility] Neutrophils Auto (Bld) [#/Vo l]Ordered By: Reinaldo Amor on 10-04-2021 Neutrophils (Bld) [#/Vol] 6.9 10*3/uL 1.8-7.7 [facility] Neutrophils/100 WBC Auto (Bl d)Ordered By: Reinaldo Amor on 10-04-2021 Neutrophils/100 WBC (Bld) 66.2 % . [facility] No Panel InformationOrdered By: Reinaldo Amor on 10-04-2021 Estimated GFR () > 60 mL/Min [facility] Comment on above: GFR estimated refere nce range: According to KDOQI guidelines, <60 ml/min/1.73m2 is sufficient to diagnose a patient with chronic kidney disease. Pharmacy Creatinine Clearance (Chem 71.30 [facility] Platelet mean volume Auto (B ld) [Entitic vol]Ordered By: Reinadlo Amor on 10-04-2021 Platelet mean volume (Bld) [Entitic vol] 8.0 fL 6.3-10.7 [facility] Platelets Auto (Bld) [#/Vol] Ordered By: Reinaldo Amor on 10-04-2021 Platelets (Bld) [#/Vol] 268 10*3/uL 150-450 [facility] Protein Auto test strip (U) [Mass/Vol]Ordered By: Reinaldo Amor on 10-04-2021 Protein (U) [Mass/Vol] Negative Negative [facility] Protein [Mass/volume] in Ser um or PlasmaOrdered By: Reinaldo Amor on 10-04-2021 Protein [Mass/Vol] 6.2 g/dL 6.1-7.9 [facility] RBC Auto (Bld) [#/Vol]Ordere d By: Reinaldo Amor on 10-04-2021 RBC (Bld) [#/Vol] 4.26 10*6/uL 3.60-5.00 [facility] Serum or plasma alanine hughes otransferase measurement without P-5'-P (enzymatic activiOrdered By: Reinaldo Amor on 10-04-2021 ALT No additional P-5'-P [Catalytic activity/Vol] 15 U/L 10-60 [facility] Serum or plasma albumin/glob ulin mass ratioOrdered By: Reinaldo Amor on 10-04-2021 Albumin/Globulin [Mass ratio] 1.4 {ratio} [facility] Serum or plasma alkaline jaqueline sphatase measurement (enzymatic activity/volume)Ordered By: Reinaldo Amor on 10-04-2021 ALP [Catalytic activity/Vol] 103 U/L 32-92 [facility] Serum or plasma amylase priscilla urement (enzymatic activity/volume)Ordered By: Reinaldo Amor on 10-04-2021 Amylase [Catalytic activity/Vol] 134 U/L 28-100 [facility] Serum or plasma aspartate am inotransferase measurement (enzymatic activity/volume)Ordered By: Reinaldo Amor on 10-04-2021 AST [Catalytic activity/Vol] 20 U/L 10-42 [facility] Serum or plasma calcium priscilla urement (mass/volume)Ordered By: Reinaldo Amor on 10-04-2021 Calcium [Mass/Vol] 9.6 mg/dL 8.2-10.2 [facility] Serum or plasma chloride daron surement (moles/volume)Ordered By: Reinaldo Amor on 10-04-2021 Chloride [Moles/Vol] 103 mmol/L 95-114 [facility] Serum or plasma ethanol priscilla urement (mass/volume)Ordered By: Reinaldo Amor on 10-04-2021 Ethanol [Mass/Vol] mg/dL [facility] Ethanol [Mass/Vol] TNP [facility] Comment on above: Test not performed Serum or plasma glucose priscilla urement (mass/volume)Ordered By: Reinaldo Amor on 10-04-2021 Glucose [Mass/Vol] 120 mg/dL 70-100 [facility] Comment on above: ADA recommended refe rence range Random Glucose Reference Range is dependent on time and content of last meal. Glucose of more than 200 mg/dL in a nonstressed, ambulatory subject supports the diagnosis of Diabetes Mellitus. Serum or plasma non-glucuron idated bilirubin measurement (mass/volume)Ordered By: Reinaldo Amor on 10-04-2021 Bilirubin.indirect [Mass/Vol] [facility] Test not performed Serum or plasma potassium me asurement (moles/volume)Ordered By: Reinaldo Amor on 10-04-2021 Potassium [Moles/Vol] 3.7 mmol/L 3.5-5.[address] [facility] Serum or plasma sodium measu rement (moles/volume)Ordered By: Reinaldo Amor on 10-04-2021 Sodium [Moles/Vol] 137 mmol/L 136-146 [facility] Serum or plasma total biliru bin measurement (mass/volume)Ordered By: Reinaldo Amor on 10-04-2021 Bilirubin [Mass/Vol] 0.5 mg/dL 0.3-1.2 [facility] Serum or plasma total carbon dioxide measurement (moles/volume)Ordered By: Reinaldo Amor on 10-04-2021 CO2 [Moles/Vol] 24.9 mmol/L 22.0-30.0 [facility] Serum or plasma urea nitroge n measurement (mass/volume)Ordered By: Reinaldo Amor on 10-04-2021 Urea nitrogen [Mass/Vol] 7 mg/dL 9 [facility] Urine appearanceOrdered By: Reinaldo Amor on 10-04-2021 Appearance (U) Clear Clear [facility] Urine colorOrdered By: Ml Amor on 10-04-2021 Color (U) Yellow Yellow [facility] Urine glucose measurement by automated test strip (mass/volume)Ordered By: Reinaldo Amor on 10-04-2021 Glucose Auto test strip (U) [Mass/Vol] Normal mg/dL Normal [facility] Urine hemoglobin detection b y automated test stripOrdered By: Reinaldo Amor on 10-04-2021 Hemoglobin Auto test strip Ql (U) Negative Negative [facility] Urine leukocyte esterase det ection by automated test stripOrdered By: Reinaldo Amor on 10-04-2021 Leukocyte esterase Auto test strip Ql (U) Negative Negative [facility] Urine nitrite detection by a utomated test stripOrdered By: Reinaldo Amor on 10-04-2021 Nitrite Auto test strip Ql (U) Negative Negative [facility] Urobilinogen Auto test strip (U) [Mass/Vol]Ordered By: Reinaldo Amor on 10-04-2021 Urobilinogen (U) [Mass/Vol] Normal mg/dL Normal [facility] pH Auto test strip (U)Ordere d By: Reinaldo Amor on 10-04-2021 pH (U) 1.030 [pH] 1.001-1.03 0 [facility] pH (U) 5.5 [pH] 5.0-9.0 [facility] Basophils Auto (Bld) [#/Vol] Ordered By: Reinaldo Amor on 09-25-2021 Basophils (Bld) [#/Vol] 0.1 10*3/uL 0.0-0.2 [facility] Basophils/100 WBC Auto (Bld) Ordered By: Reinaldo Amor on 09-25-2021 Basophils/100 WBC (Bld) 1.2 % . [facility] Blood hemoglobin measurement (mass/volume)Ordered By: Reinaldo Amor on 09-25-2021 Hemoglobin (Bld) [Mass/Vol] 14.2 g/dL 11.8-15.4 [facility] Blood leukocytes automated c ount (number/volume)Ordered By: Reinaldo Amor on 09-25-2021 WBC (Bld) [#/Vol] 9.3 10*3/uL 4.5-11.0 [facility] Body fluid albumin measureme nt (mass/volume)Ordered By: PROVIDER TEMP on 09-25-2021 Albumin (Body fld) [Mass/Vol] 4.3 g/dL 3.2-5.5 [facility] Creatinine and Glomerular fi ltration rate.predicted panel (S/P/Bld)Ordered By: PROVIDER TEMP on 09-25-2021 Creatinine [Mass/Vol] 0.82 mg/dL 0.44-1.[address] [facility] Eosinophils Auto (Bld) [#/Vo l]Ordered By: Reinaldo Amor on 09-25-2021 Eosinophils (Bld) [#/Vol] 0.2 10*3/uL 0.0-0.45 [facility] Eosinophils/100 WBC Auto (Bl d)Ordered By: Reinaldo Amor on 09-25-2021 Eosinophils/100 WBC (Bld) 1.9 % . [facility] Erythrocyte distribution wid th Auto (RBC) [Ratio]Ordered By: Reinaldo Amor on 09-25-2021 Erythrocyte distribution width (RBC) [Ratio] 13.7 % 11.9-15.3 [facility] Estimated glomerular filtrat ion rate (GFR) non- AmericanOrdered By: PROVIDER TEMP on 09-25-2021 GFR/1.73 sq M.predicted among non-blacks MDRD (S/P/Bld) [Vol rate/Area] > 60 mL/Min [facility] Globulin Calc (S) [Mass/Vol] Ordered By: PROVIDER TEMP on 09-25-2021 Globulin (S) [Mass/Vol] 3.3 g/dL [facility] Hematocrit Auto (Bld) [Volum e fraction]Ordered By: Reinaldo Amor on 09-25-2021 Hematocrit (Bld) [Volume fraction] 42.1 % 34.0-46.4 [facility] Laboratory - Chemistry and C hemistry - challengeOrdered By: Reinaldo Amor on 09-25-2021 Lipase [Catalytic activity/Vol] 64.0 U/L 22-51 [facility] - Hematology and Cell countsOrdered By: Reinaldo Amor on 09-25-2021 Nucleated RBC/100 WBC (Bld) [Ratio] 0.1 % 0-0.5 [facility] Lymphocytes Auto (Bld) [#/Vo l]Ordered By: Reinaldo Amor on 09-25-2021 Lymphocytes (Bld) [#/Vol] 2.6 10*3/uL 1.00-4.8 [facility] Lymphocytes/100 WBC Auto (Bl d)Ordered By: Reinaldo Amor on 09-25-2021 Lymphocytes/100 WBC (Bld) 28.1 % . [facility] MCH Auto (RBC) [Entitic mass ]Ordered By: Reinaldo Amor on 09-25-2021 MCH (RBC) [Entitic mass] 32.5 pg 24.7-34.3 [facility] MCHC Auto (RBC) [Mass/Vol]Or dered By: Reinaldo Amor on 09-25-2021 MCHC (RBC) [Mass/Vol] 33.7 g/dL 32.0-35.[address] [facility] MCV Auto (RBC) [Entitic vol] Ordered By: Reinaldo Amor on 09-25-2021 MCV (RBC) [Entitic vol] 96.7 fL 80-100 [facility] Monocytes Auto (Bld) [#/Vol] Ordered By: Reinaldo Amor on 09-25-2021 Monocytes (Bld) [#/Vol] 0.8 10*3/uL 0.0-0.8 [facility] Monocytes/100 WBC Auto (Bld) Ordered By: Reinaldo Amor on 09-25-2021 Monocytes/100 WBC (Bld) 8.2 % . [facility] Neutrophils Auto (Bld) [#/Vo l]Ordered By: Reinaldo Amor on 09-25-2021 Neutrophils (Bld) [#/Vol] 5.6 10*3/uL 1.8-7.7 [facility] Neutrophils/100 WBC Auto (Bl d)Ordered By: Reinaldo Amor on 09-25-2021 Neutrophils/100 WBC (Bld) 60.6 % . [facility] No Panel InformationOrdered By: PROVIDER TEMP on 09-25-2021 Estimated GFR () > 60 mL/Min [facility] Comment on above: GFR estimated refere nce range: According to KDOQI guidelines, <60 ml/min/1.73m2 is sufficient to diagnose a patient with chronic kidney disease. Pharmacy Creatinine Clearance (Chem 63.47 [facility] Platelet mean volume Auto (B ld) [Entitic vol]Ordered By: Reinaldo Amor on 09-25-2021 Platelet mean volume (Bld) [Entitic vol] 8.6 fL 6.3-10.7 [facility] Platelets Auto (Bld) [#/Vol] Ordered By: Reinaldo Amor on 09-25-2021 Platelets (Bld) [#/Vol] 221 10*3/uL 150-450 [facility] Protein [Mass/volume] in Ser um or PlasmaOrdered By: PROVIDER TEM on 09-25-2021 Protein [Mass/Vol] 7.6 g/dL 6.1-7.9 [facility] RBC Auto (Bld) [#/Vol]Ordere d By: Reinaldo Amor on 09-25-2021 RBC (Bld) [#/Vol] 4.35 10*6/uL 3.60-5.00 [facility] Serum or plasma alanine hughes otransferase measurement without P-5'-P (enzymatic activiOrdered By: PROVIDER TEMP on 09-25-2021 ALT No additional P-5'-P [Catalytic activity/Vol] 14 U/L 10-60 [facility] Serum or plasma albumin/glob ulin mass ratioOrdered By: PROVIDER TEMP on 09-25-2021 Albumin/Globulin [Mass ratio] 1.3 {ratio} [facility] Serum or plasma alkaline jaqueline sphatase measurement (enzymatic activity/volume)Ordered By: PROVIDER TEMP on 09-25-2021 ALP [Catalytic activity/Vol] 127 U/L 32-92 [facility] Serum or plasma amylase priscilla urement (enzymatic activity/volume)Ordered By: Reinaldo Amor on 09-25-2021 Amylase [Catalytic activity/Vol] 171 U/L 28-100 [facility] Serum or plasma aspartate am inotransferase measurement (enzymatic activity/volume)Ordered By: PROVIDER TEMP on 09-25-2021 AST [Catalytic activity/Vol] 21 U/L 10-42 [facility] Serum or plasma calcium priscilla urement (mass/volume)Ordered By: PROVIDER TEMP on 09-25-2021 Calcium [Mass/Vol] 10.1 mg/dL 8.2-10.2 [facility] Serum or plasma chloride daron surement (moles/volume)Ordered By: PROVIDER TEMP on 09-25-2021 Chloride [Moles/Vol] 103 mmol/L 95-114 [facility] Serum or plasma glucose priscilla urement (mass/volume)Ordered By: PROVIDER TEMP on 09-25-2021 Glucose [Mass/Vol] 93 mg/dL 70-100 [facility] Comment on above: ADA recommended refe rence range Random Glucose Reference Range is dependent on time and content of last meal. Glucose of more than 200 mg/dL in a nonstressed, ambulatory subject supports the diagnosis of Diabetes Mellitus. Serum or plasma potassium me asurement (moles/volume)Ordered By: PROVIDER TEMP on 09-25-2021 Potassium [Moles/Vol] 3.9 mmol/L 3.5-5.[address] [facility] Serum or plasma sodium measu rement (moles/volume)Ordered By: PROVIDER TEMP on 09-25-2021 Sodium [Moles/Vol] 137 mmol/L 136-146 [facility] Serum or plasma total biliru bin measurement (mass/volume)Ordered By: PROVIDER TEMP on 09-25-2021 Bilirubin [Mass/Vol] 0.3 mg/dL 0.3-1.2 [facility] Serum or plasma total carbon dioxide measurement (moles/volume)Ordered By: PROVIDER TEMP on 09-25-2021 CO2 [Moles/Vol] 26.3 mmol/L 22.0-30.0 [facility] Serum or plasma urea nitroge n measurement (mass/volume)Ordered By: PROVIDER TEMP on 09-25-2021 Urea nitrogen [Mass/Vol] 8 mg/dL 9-23 [facility] AMYLASEon 09-17-2021 Amylase [Catalytic activity/Vol] 142 U/L Critically high 25-115 [facility] Comment on above: Performed By: #### A MY, CMP, LIPA ####[facility] [address] [place] [id number]. Keturah Phillip CBC AUTO DIFFon 09-17-2021 BASO # 0.1 103/ul Normal 0.0-0.1 [facility] Comment on above: Performed By: #### C BC ####[facility] [address] [place] [id number]. Elisaeli Fisher Basophils/100 WBC (Bld) 0.7 % Normal 0.2-2.0 [facility] Comment on above: Performed By: #### C BC ####[facility] [address] [place] [address]Dr. Elisaeli Fisher EO # 0.1 103/ul Normal 0.0-0.7 [facility] Comment on above: Performed By: #### C BC ####[facility] [address] [place] [address]Dr. Elisaeli Fisher Eosinophils/100 WBC (Bld) 1.3 % Normal 0.9-7.0 [facility] Comment on above: Performed By: #### C BC ####[facility] [address] [place], [place] [address]Dr. Keturah Phillip Erythrocyte distribution width (RBC) [Ratio] 13.2 % Normal 11.0-15.0 [facility] Comment on above: Performed By: #### C BC ####[facility] [address] [place], [place] [address]Dr. Keturah Phillip Hematocrit (Bld) [Volume fraction] 43.7 % Normal 36.0-48.0 [facility] Comment on above: Performed By: #### C BC ####[facility] [address] [place] [address]Dr. Keturah Phillip Hemoglobin (Bld) [Mass/Vol] 14.7 g/dL Normal 12.0-16.0 [facility] Comment on above: Performed By: #### C BC ####[facility] [address] [place], [place] [address]Dr. Keturah Fisher IG # 0.01 10e3/ul Normal 0.00-0.03 [facility] Comment on above: Performed By: #### C BC ####[facility] [address] [place] [address]Dr. Elisaeli Fisher IG % 0.1 % Normal 0.0-0.5 [facility] Comment on above: Performed By: #### C BC ####[facility] [address] [place] [address]Dr. Keturah Fisher LYMPH # 2.7 103/ul Normal 1.2-3.8 [facility] Comment on above: Performed By: #### C BC ####[facility] [address] [place] [address]Dr. Keturah Fisher Lymphocytes/100 WBC (Bld) 30.1 % Normal 20.5-60.0 [facility] Comment on above: Performed By: #### C BC ####[facility] [address] [place], [place] [address]Dr. Keturah Fisher MANUAL DIFF REQ NO Normal [facility] Comment on above: Performed By: #### C BC ####[facility] [address] [place] [id number]. Elisaeli Fisher MCH (RBC) [Entitic mass] 32.4 pg Normal 26.7-34.0 [facility] Comment on above: Performed By: #### C BC ####[facility] [address] [place], [place] [id number]. Elisaeli Fisher MCHC (RBC) [Mass/Vol] 33.6 g/dL Normal 29.9-35.2 [facility] Comment on above: Performed By: #### C BC ####[facility] [address] [place], [place] [id number] Elisaeli Fisher MCV (RBC) [Entitic vol] 96.3 fL Normal 81.0-99.0 [facility] Comment on above: Performed By: #### C BC ####[facility] [address] [place] [address]DrGopal Fisher MONO # 0.8 103/ul Normal 0.3-0.8 [facility] Comment on above: Performed By: #### C BC ####[facility] [address] [place] [id number]. Keturah Fisher Monocytes/100 WBC (Bld) 8.7 % Normal 1.7-12.0 [facility] Comment on above: Performed By: #### C BC ####[facility] [address] [place] [id number]. Keturah Fisher NEUT # 5.4 103/ul Normal 1.4-6.5 [facility] Comment on above: Performed By: #### C BC ####[facility] [address] [place] [id number]. Keturah Fisher Neutrophils/100 WBC (Bld) 59.1 % Normal 43.0-75.0 [facility] Comment on above: Performed By: #### C BC ####[facility] [address] [place] [id number]. Keturah Fisher Platelet mean volume (Bld) [Entitic vol] 9.6 fL Normal 9.5-13.5 [facility] Comment on above: Performed By: #### C BC ####[facility] [address] [place] [id number]. Keturah Fisher PLT 272 103/ul Normal 150-450 [facility] Comment on above: Performed By: #### C BC ####[facility] [address] [place] [id number]. Keturah Fisher RBC 4.54 106/ul Normal 4.20-5.40 [facility] Comment on above: Performed By: #### C BC ####[facility] [address] [place] [id number]. Keturah Fisher WBC 9.1 103/ul Normal 4.0-11.0 [facility] Comment on above: Performed By: #### C BC ####[facility] [address] [place] [id number]. Keturah Fisher ETHANOL (BLD ALC)on 09-18-19 22 ALC NOTE NOTE: 80 mg/dl is th e legal limit for a blood alcohol level Normal [facility] Comment on above: Performed By: #### L IPA, CMP, CRP, NAT #### [facility] [address] [place] [address] Dr. Keturah Fisher Ethanol [Mass/Vol] mg/dL Normal [facility] Comment on above: Performed By: #### L IPA, CMP, CRP, NAT #### [facility] [address] [place] [address] Dr. Keturah Fisher LIPASEon 09-17-2021 Lipase [Catalytic activity/Vol] 524.0 U/L Critically high 73.0-393.0 [facility] Comment on above: Performed By: #### C BC #### [facility] [address] [place] [address] Dr. Keturah Fisher PROF 14(COMP METB)on 022 Albumin [Mass/Vol] 3.9 g/dL Normal 3.4-5.0 [facility] Comment on above: Performed By: #### C BC #### [facility] [address] [place] [address] Dr. Keturah Fisher Albumin/Globulin [Mass ratio] 1.1 {ratio} Normal [facility] Comment on above: Performed By: #### C BC #### [facility] [address] [place] [address] Dr. Keturah Fisher ALP [Catalytic activity/Vol] 136 U/L Critically high 46-116 [facility] Comment on above: Performed By: #### C BC #### [facility] [address] [place] [address] Dr. Ketuarh Fisher ALT [Catalytic activity/Vol] 21 U/L Normal 14-59 [facility] Comment on above: Performed By: #### C BC #### [facility] [address] [place] [address] Dr. Keturah Fisher Anion gap [Moles/Vol] 12.7 mmol/L Normal [facility] Comment on above: Performed By: #### C BC #### [facility] [address] [place] [address] Dr. Keturah Fisher AST [Catalytic activity/Vol] 16 U/L Normal 15-37 [facility] Comment on above: Performed By: #### C BC #### [facility] [address] [place] [address] Dr. Keturah Fisher Bilirubin [Mass/Vol] 0.2 mg/dL Normal 0.2-1.0 [facility] Comment on above: Performed By: #### C BC #### [facility] [address] [place] [address] Dr. Keturah Fisher Calcium [Mass/Vol] 9.9 mg/dL Normal 8.5-10.1 [facility] Comment on above: Performed By: #### C BC #### [facility] [address] [place] [address] Dr. Keturah Fisher Chloride [Moles/Vol] 106 mmol/L Normal 98-107 [facility] Comment on above: Performed By: #### C BC #### [facility] [address] [place] [address] Dr. Keturah Fisher CO2 [Moles/Vol] 25.9 mmol/L Normal 21.0-32.0 [facility] Comment on above: Performed By: #### C BC #### [facility] [address] [place] [address] Dr. Keturah Fisher Creatinine [Mass/Vol] 0.96 mg/dL Normal 0.55-1.02 [facility] Comment on above: Performed By: #### C BC #### [facility] [address] [place] [address] Dr. Keturah Fisher EGFR-AF IRAQI >60 Normal >=60 [facility] Comment on above: Performed By: #### C BC #### [facility] [address] [place] [address] Dr. Keturah Fisher EGFR-NON AF IRAQI >60 Normal >=60 [facility] Comment on above: Performed By: #### C BC #### [facility] [address] [place] [address] Dr. Keturah Fisher Globulin (S) [Mass/Vol] 3.5 g/dL Normal [facility] Comment on above: Performed By: #### C BC #### [facility] [address] [place] [address] [address] Keturah Fisher Glucose [Mass/Vol] 113 mg/dL Critically high 74-[address] [facility] Comment on above: Performed By: #### C BC #### [facility] [address] [place] [address] [address] Keturah Fisher Potassium [Moles/Vol] 3.6 mmol/L Normal 3.5-5.1 [facility] Comment on above: Performed By: #### C BC #### [facility] [address] [place] [address] [address] Keturah Fisher Protein [Mass/Vol] 7.4 g/dL Normal 6.4-8.2 [facility] Comment on above: Performed By: #### C BC #### [facility] [address] [place] [address] [address] Keturah Fisher Sodium [Moles/Vol] 141 mmol/L Normal 136-145 [facility] Comment on above: Performed By: #### C BC #### [facility] [address] [place] [address] [address] Keturah Fisher Urea nitrogen [Mass/Vol] 8.0 mg/dL Normal 7.0-18.0 [facility] Comment on above: Performed By: #### C BC #### [facility] [address] [address] [address] Keturah Fisher Urea nitrogen/Creatinine [Mass ratio] 8.3 mg/mg Normal [facility] Comment on above: Performed By: #### C BC #### [facility] [address] [address] [address] Keturah Fisher AMYLASEon 08-26-2021 Amylase [Catalytic activity/Vol] 94 U/L Normal 25-115 [facility] Comment on above: Performed By: #### A MY, CMP, LIPA ####[facility] [address] [place], [place] [address]QsDr. Keturah Fisher CBC AUTO DIFFon 08-26-2021 BASO # 0.1 103/ul Normal 0.0-0.1 [facility] Comment on above: Performed By: #### L IPA, CMP, CRP, NAT #### [facility] [address] [place] [address] Dr. Keturah Fisher Basophils/100 WBC (Bld) 0.7 % Normal 0.2-2.0 [facility] Comment on above: Performed By: #### L IPA, CMP, CRP, NAT #### [facility] [address] [place] [address] Dr. Keturah Fisher EO # 0.2 103/ul Normal 0.0-0.7 [facility] Comment on above: Performed By: #### L IPA, CMP, CRP, NTA #### [facility] [address] [place] [address] Dr. Keturah Fisher Eosinophils/100 WBC (Bld) 2.5 % Normal 0.9-7.0 [facility] Comment on above: Performed By: #### L IPA, CMP, CRP, NAT #### [facility] [address] [place] [address] Dr. Keturah Fisher Erythrocyte distribution width (RBC) [Ratio] 13.1 % Normal 11.0-15.0 [facility] Comment on above: Performed By: #### L IPA, CMP, CRP, NAT #### [facility] [address] [place] [address] Dr. Keturah Fisher Hematocrit (Bld) [Volume fraction] 42.4 % Normal 36.0-48.0 [facility] Comment on above: Performed By: #### L IPA, CMP, CRP, NAT #### [facility] [address] [place] [address] Dr. Keturah Fisher Hemoglobin (Bld) [Mass/Vol] 14.1 g/dL Normal 12.0-16.0 [facility] Comment on above: Performed By: #### L IPA, CMP, CRP, NAT #### [facility] [address] [place] [address] Dr. Keturah Fisher IG # 0.03 10e3/ul Normal 0.00-0.03 [facility] Comment on above: Performed By: #### L IPA, CMP, CRP, NAT #### [facility] [address] [place] [address] Dr. Keturah Fisher IG % 0.3 % Normal 0.0-0.5 [facility] Comment on above: Performed By: #### L IPA, CMP, CRP, NAT #### [facility] [address] [address] [address] Keturah Fisher LYMPH # 2.6 103/ul Normal 1.2-3.8 [facility] Comment on above: Performed By: #### L IPA, CMP, CRP, NAT #### [facility] [address] [place] [address] Dr. Keturah Fisher Lymphocytes/100 WBC (Bld) 27.7 % Normal 20.5-60.0 [facility] Comment on above: Performed By: #### L IPA, CMP, CRP, NAT #### [facility] [address] [place] [address] Dr. Keturah Fisher MANUAL DIFF REQ NO Normal [facility] Comment on above: Performed By: #### L IPA, CMP, CRP, NAT #### [facility] [address] [place] [address] Dr. Keturah Fisher MCH (RBC) [Entitic mass] 32.6 pg Normal 26.7-34.0 [facility] Comment on above: Performed By: #### L IPA, CMP, CRP, NAT #### [facility] [address] [place] [address] Dr. Keturah Fisher MCHC (RBC) [Mass/Vol] 33.3 g/dL Normal 29.9-35.2 [facility] Comment on above: Performed By: #### L IPA, CMP, CRP, NAT #### [facility] [address] [place] [address] Dr. Keturah Fisher MCV (RBC) [Entitic vol] 97.9 fL Normal 81.0-99.0 [facility] Comment on above: Performed By: #### L IPA, CMP, CRP, NAT #### [facility] [address] [place] [address] Dr. Keturah Fisher MONO # 1.2 103/ul Critically high 0.3-0.8 [facility] Comment on above: Performed By: #### L IPA, CMP, CRP, NAT #### [facility] [address] [place] [address] Dr. Keturah Fisher Monocytes/100 WBC (Bld) 12.9 % Critically high 1.7-12.0 [facility] Comment on above: Performed By: #### L IPA, CMP, CRP, NAT #### [facility] [address] [place] [address] Dr. Keturah Fisher NEUT # 5.3 103/ul Normal 1.4-6.5 [facility] Comment on above: Performed By: #### L IPA, CMP, CRP, NAT #### [facility] [address] [place] [address] Dr. Keturah Fisher Neutrophils/100 WBC (Bld) 55.9 % Normal 43.0-75.0 [facility] Comment on above: Performed By: #### L IPA, CMP, CRP, NAT #### [facility] [address] [place] [address] Dr. Keturah Fisher Platelet mean volume (Bld) [Entitic vol] 9.8 fL Normal 9.5-13.5 [facility] Comment on above: Performed By: #### L IPA, CMP, CRP, NAT #### [facility] [address] [place] [address] Dr. Keturah Fisher PLT 229 103/ul Normal 150-450 [facility] Comment on above: Performed By: #### L IPA, CMP, CRP, NAT #### [facility] [address] [place] [address] Dr. Keturah Fisher RBC 4.33 106/ul Normal 4.20-5.40 [facility] Comment on above: Performed By: #### L IPA, CMP, CRP, NAT #### [facility] [address] [place] [address] Dr. Keturah Fisher WBC 9.5 103/ul Normal 4.0-11.0 [facility] Comment on above: Performed By: #### L IPA, CMP, CRP, NAT #### [facility] [address] [address] [address]Gopal Fisher LIPASEon 08-26-2021 Lipase [Catalytic activity/Vol] 146.0 U/L Normal 73.0-393.0 [facility] Comment on above: Performed By: #### A MY, CMP, LIPA ####[facility] [address] [address]DrGopal Fisher PROF 14(COMP METB)on 022 Albumin [Mass/Vol] 3.5 g/dL Normal 3.4-5.0 [facility] Comment on above: Performed By: #### A MY, CMP, LIPA ####[facility] [address] [address]DrGopal Fisher Albumin/Globulin [Mass ratio] 1.1 {ratio} Normal [facility] Comment on above: Performed By: #### A MY, CMP, LIPA ####[facility] [address] [address]Dr. Keturah Fisher ALP [Catalytic activity/Vol] 139 U/L Critically high 46-116 [facility] Comment on above: Performed By: #### A MY, CMP, LIPA ####[facility] [address] [address]Dr. Keturah Fisher ALT [Catalytic activity/Vol] 21 U/L Normal 14-59 [facility] Comment on above: Performed By: #### A MY, CMP, LIPA ####[facility] [address] [address]Dr. Keturah Fisher Anion gap [Moles/Vol] 11.4 mmol/L Normal [facility] Comment on above: Performed By: #### A MY, CMP, LIPA ####[facility] [address] [address]Dr. Keturah Fisher AST [Catalytic activity/Vol] 21 U/L Normal 15-37 [facility] Comment on above: Performed By: #### A MY, CMP, LIPA ####[facility] [address] [address]Dr. Keturah Fisher Bilirubin [Mass/Vol] 0.2 mg/dL Normal 0.2-1.0 [facility] Comment on above: Performed By: #### A MY, CMP, LIPA ####[facility] [address] [address]Dr. Keturah Fisher Calcium [Mass/Vol] 9.2 mg/dL Normal 8.5-10.1 [facility] Comment on above: Performed By: #### A MY, CMP, LIPA ####[facility] [address] [address]Dr. Keturah Fisher Chloride [Moles/Vol] 107 mmol/L Normal 98-107 [facility] Comment on above: Performed By: #### A MY, CMP, LIPA ####[facility] [address] [place], [place] [address]Dr. Keturah Fisher CO2 [Moles/Vol] 27.9 mmol/L Normal 21.0-32.0 [facility] Comment on above: Performed By: #### A MY, CMP, LIPA ####[facility] [address] [address]Dr. Keturah Fisher Creatinine [Mass/Vol] 0.84 mg/dL Normal 0.55-1.02 [facility] Comment on above: Performed By: #### A MY, CMP, LIPA ####[facility] [address] [address]Dr. Keturah Fisher EGFR-AF IRAQI >60 Normal >=60 [facility] Comment on above: Performed By: #### A MY, CMP, LIPA ####[facility] [address] [address]Dr. Keturah Fisher EGFR-NON AF IRAQI >60 Normal >=60 [facility] Comment on above: Performed By: #### A MY, CMP, LIPA ####[facility] [address] [address]Dr. Keturah Fisher Globulin (S) [Mass/Vol] 3.3 g/dL Normal [facility] Comment on above: Performed By: #### A MY, CMP, LIPA ####[facility] [address] [address]Dr. Keturah Fisher Glucose [Mass/Vol] 106 mg/dL Normal 74-106 [facility] Comment on above: Performed By: #### A MY, CMP, LIPA ####[facility] [address] [address]Dr. Keturah Fisher Potassium [Moles/Vol] 4.3 mmol/L Normal 3.5-5.1 [facility] Comment on above: Performed By: #### A MY, CMP, LIPA ####[facility] [address] [address]Dr. Keturah Fisher Protein [Mass/Vol] 6.8 g/dL Normal 6.4-8.2 [facility] Comment on above: Performed By: #### A MY, CMP, LIPA ####[facility] [address] [address]Dr. Keturah Fisher Sodium [Moles/Vol] 142 mmol/L Normal 136-145 [facility] Comment on above: Performed By: #### A MY, CMP, LIPA ####[facility] [address] [address]Dr. Keturah Fisher Urea nitrogen [Mass/Vol] 11.0 mg/dL Normal 7.0-18.0 [facility] Comment on above: Performed By: #### A MY, CMP, LIPA ####[facility] [address] [address]Dr. Keturah Fisher Urea nitrogen/Creatinine [Mass ratio] 13.1 mg/mg Normal [facility] Comment on above: Performed By: #### A MY, CMP, LIPA ####[facility] [address] [place], [place] [address]Dr. Keturah Fisher XR ABD FLAT UP_PA Jorje [...] MILADIS BARRERA Date: 2021-08-26 04:59 Normal [facility] AMYLASEon 08-22-2021 Amylase [Catalytic activity/Vol] 155 U/L Critically high 25-115 [facility] Comment on above: Performed By: #### C MP, NAT, LIPA #### [facility] [address] [place] [address] Dr. Keturah Fisher CBC AUTO DIFFon 08-22-2021 BASO # 0.1 103/ul Normal 0.0-0.1 [facility] Comment on above: Performed By: #### L IPA, CMP, CRP, NAT #### [facility] [address] [place] [address] Dr. Keturah Fisher Basophils/100 WBC (Bld) 0.7 % Normal 0.2-2.0 [facility] Comment on above: Performed By: #### L IPA, CMP, CRP, NAT #### [facility] [address] [place] [address] Dr. Keturah Fisher EO # 0.1 103/ul Normal 0.0-0.7 [facility] Comment on above: Performed By: #### L IPA, CMP, CRP, NAT #### [facility] [address] [place] [address] Dr. Keturah Fisher Eosinophils/100 WBC (Bld) 0.7 % Critically low 0.9-7.0 [facility] Comment on above: Performed By: #### L IPA, CMP, CRP, NAT #### [facility] [address] [place] [address] Dr. Keturah Fisher Erythrocyte distribution width (RBC) [Ratio] 13.2 % Normal 11.0-15.0 [facility] Comment on above: Performed By: #### L IPA, CMP, CRP, NAT #### [facility] [address] [place] [address] Dr. Keturah Fisher Hematocrit (Bld) [Volume fraction] 41.1 % Normal 36.0-48.0 [facility] Comment on above: Performed By: #### L IPA, CMP, CRP, NAT #### [facility] [address] [place] [address] Dr. Keturah Fisher Hemoglobin (Bld) [Mass/Vol] 13.8 g/dL Normal 12.0-16.0 [facility] Comment on above: Performed By: #### L IPA, CMP, CRP, NAT #### [facility] [address] [place] [address] Dr. Keturah Fisher IG # 0.03 10e3/ul Normal 0.00-0.03 [facility] Comment on above: Performed By: #### L IPA, CMP, CRP, NAT #### [facility] [address] [place] [address] Dr. Keturah Fisher IG % 0.2 % Normal 0.0-0.5 [facility] Comment on above: Performed By: #### L IPA, CMP, CRP, NAT #### [facility] [address] [place] [address] Dr. Keturah Fisher LYMPH # 2.6 103/ul Normal 1.2-3.8 [facility] Comment on above: Performed By: #### L IPA, CMP, CRP, NAT #### [facility] [address] [place] [address] Dr. Keturah Fisher Lymphocytes/100 WBC (Bld) 21.4 % Normal 20.5-60.0 [facility] Comment on above: Performed By: #### L IPA, CMP, CRP, NAT #### [facility] [address] [place] [address] Dr. Keturah Fisher MANUAL DIFF REQ NO Normal [facility] Comment on above: Performed By: #### L IPA, CMP, CRP, NAT #### [facility] [address] [place] [address] Dr. Keturah Fisher MCH (RBC) [Entitic mass] 32.2 pg Normal 26.7-34.0 [facility] Comment on above: Performed By: #### L IPA, CMP, CRP, NAT #### [facility] [address] [place] [address] Dr. Keturah Fisher MCHC (RBC) [Mass/Vol] 33.6 g/dL Normal 29.9-35.2 [facility] Comment on above: Performed By: #### L IPA, CMP, CRP, NAT #### [facility] [address] [place] [address] Dr. Keturah Fisher MCV (RBC) [Entitic vol] 95.8 fL Normal 81.0-99.0 [facility] Comment on above: Performed By: #### L IPA, CMP, CRP, NAT #### [facility] [address] [place] [address] Dr. Keturah Fisher MONO # 0.9 103/ul Critically high 0.3-0.8 [facility] Comment on above: Performed By: #### L IPA, CMP, CRP, NAT #### [facility] [address] [place] [address] Dr. Keturah Fisher Monocytes/100 WBC (Bld) 7.6 % Normal 1.7-12.0 [facility] Comment on above: Performed By: #### L IPA, CMP, CRP, NAT #### [facility] [address] [place] [address] Dr. Keturah Fisher NEUT # 8.5 103/ul Critically high 1.4-6.5 [facility] Comment on above: Performed By: #### L IPA, CMP, CRP, NAT #### [facility] [address] [place] [address] Dr. Keturah Fisher Neutrophils/100 WBC (Bld) 69.4 % Normal 43.0-75.0 [facility] Comment on above: Performed By: #### L IPA, CMP, CRP, NAT #### [facility] [address] [place] [address] Dr. Keturah Fisher Platelet mean volume (Bld) [Entitic vol] 9.5 fL Normal 9.5-13.5 [facility] Comment on above: Performed By: #### L IPA, CMP, CRP, NAT #### [facility] [address] [place] [address] Dr. Keturah Fisher PLT 261 103/ul Normal 150-450 [facility] Comment on above: Performed By: #### L IPA, CMP, CRP, NAT #### [facility] [address] [place] [address] Dr. Keturah Fisher RBC 4.29 106/ul Normal 4.20-5.40 [facility] Comment on above: Performed By: #### L IPA, CMP, CRP, NAT #### [facility] [address] [place] [address] Dr. Keturah Fisher WBC 12.2 103/ul Critically high 4.0-11.0 [facility] Comment on above: Performed By: #### L IPA, CMP, CRP, NAT #### [facility] [address] [place] [address] Dr. Keturah Fisher LIPASEon 08-22-2021 Lipase [Catalytic activity/Vol] 419.0 U/L Critically high 73.0-393.0 [facility] Comment on above: Performed By: #### C MP, NAT, LIPA #### [facility] [address] [place] [address] Dr. Keturah Fisher PROF 14(COMP METB)on 022 Albumin [Mass/Vol] 3.9 g/dL Normal 3.4-5.0 [facility] Comment on above: Performed By: #### C MP, NAT, LIPA #### [facility] [address] [place] [address] Dr. Keturah Fisher Albumin/Globulin [Mass ratio] 1.2 {ratio} Normal [facility] Comment on above: Performed By: #### C MP, NAT, LIPA #### [facility] [address] [address] [address] Keturah Fisher ALP [Catalytic activity/Vol] 137 U/L Critically high 46-116 [facility] Comment on above: Performed By: #### C MP NAT, LIPA #### [facility] [address] [address] [address] Keturah Fisher ALT [Catalytic activity/Vol] 22 U/L Normal 14-59 [facility] Comment on above: Performed By: #### C MP NAT, LIPA #### [facility] [address] [address] [address] Keturah Fisher Anion gap [Moles/Vol] 12.9 mmol/L Normal [facility] Comment on above: Performed By: #### C LIZY NAT, LIPA #### [facility] [address] [place] [address] Dr. Keturah Fisher AST [Catalytic activity/Vol] 20 U/L Normal 15-37 [facility] Comment on above: Performed By: #### C LIZY NAT, LIPA #### [facility] [address] [address] [address] Keturah Fisher Bilirubin [Mass/Vol] 0.2 mg/dL Normal 0.2-1.0 [facility] Comment on above: Performed By: #### C MP NAT, LIPA #### [facility] [address] [place] [address] Dr. Keturah Fisher Calcium [Mass/Vol] 9.5 mg/dL Normal 8.5-10.1 [facility] Comment on above: Performed By: #### C MP, NAT, LIPA #### [facility] [address] [place] [address] Dr. Keturah Fisher Chloride [Moles/Vol] 104 mmol/L Normal 98-107 [facility] Comment on above: Performed By: #### C MP, NAT, LIPA #### [facility] [address] [place] [address] Dr. Keturah Fisher CO2 [Moles/Vol] 23.7 mmol/L Normal 21.0-32.0 [facility] Comment on above: Performed By: #### C MP, NAT, LIPA #### [facility] [address] [address] [address] Keturah Fisher Creatinine [Mass/Vol] 0.85 mg/dL Normal 0.55-1.02 [facility] Comment on above: Performed By: #### C MP, NAT, LIPA #### [facility] [address] [address] [address] Keturah Fisher EGFR-AF IRAQI >60 Normal >=60 [facility] Comment on above: Performed By: #### C MP, NAT, LIPA #### [facility] [address] [address] [address] Keturah Fisher EGFR-NON AF IRAQI >60 Normal >=60 [facility] Comment on above: Performed By: #### C MP, NAT, LIPA #### [facility] [address] [address] [address] Keturah Fisher Globulin (S) [Mass/Vol] 3.3 g/dL Normal [facility] Comment on above: Performed By: #### C MP, NAT, LIPA #### [facility] [address] [address] [address] Keturah Fisher Glucose [Mass/Vol] 130 mg/dL Critically high 74-106 [facility] Comment on above: Performed By: #### C MP, NAT, LIPA #### [facility] [address] [address] [address] Keturah Fisher Potassium [Moles/Vol] 3.6 mmol/L Normal 3.5-5.1 [facility] Comment on above: Performed By: #### C MP, NAT, LIPA #### [facility] [address] [address] [address] Keturah Fisher Protein [Mass/Vol] 7.2 g/dL Normal 6.4-8.2 [facility] Comment on above: Performed By: #### C MP, NAT, LIPA #### [facility] [address] [address] [address] Keturah Fisher Sodium [Moles/Vol] 137 mmol/L Normal 136-145 [facility] Comment on above: Performed By: #### C NAT MEDEL LIPA #### [facility] [address] [address] [address] Keturah Fisher Urea nitrogen [Mass/Vol] 9.0 mg/dL Normal 7.0-18.0 [facility] Comment on above: Performed By: #### C NAT MEDEL LIPA #### [facility] [address] [address] [address] Keturah Fisher Urea nitrogen/Creatinine [Mass ratio] 10.6 mg/mg Normal [facility] Comment on above: Performed By: #### C NAT MEDEL LIPA #### [facility] [address] [address] [address] Keturah Fisher XR ABD FLAT UP_PA [...] TRI HANSON Date: 2021-08-22 14:54 Normal [facility] CBC AUTO DIFFon 08-13-2021 BASO # 0.1 103/ul Normal 0.0-0.1 [facility] Comment on above: Performed By: #### C BC ####[facility] [address] [id number]. Keturah Fisher Basophils/100 WBC (Bld) 0.6 % Normal 0.2-2.0 [facility] Comment on above: Performed By: #### C BC ####[facility] [address] [id number]. Keturah Fisher EO # 0.1 103/ul Normal 0.0-0.7 [facility] Comment on above: Performed By: #### C BC ####[facility] [address] [address]Dr. Keturah Fisher Eosinophils/100 WBC (Bld) 1.1 % Normal 0.9-7.0 [facility] Comment on above: Performed By: #### C BC ####[facility] [address] [place], [place] [address]Dr. Keturah Fisher Erythrocyte distribution width (RBC) [Ratio] 12.6 % Normal 11.0-15.0 [facility] Comment on above: Performed By: #### C BC ####[facility] [address] [place], [place] [address]Dr. Keturah Fisher Hematocrit (Bld) [Volume fraction] 42.3 % Normal 36.0-48.0 [facility] Comment on above: Performed By: #### C BC ####[facility] [address] [place], [place] [address]Dr. Keturah Fisher Hemoglobin (Bld) [Mass/Vol] 14.1 g/dL Normal 12.0-16.0 [facility] Comment on above: Performed By: #### C BC ####[facility] [address] [place], [place] [address]Dr. Keturah Fisher IG # 0.03 10e3/ul Normal 0.00-0.03 [facility] Comment on above: Performed By: #### C BC ####[facility] [address] [place], [place] [address]Dr. Keturah Fisher IG % 0.3 % Normal 0.0-0.5 [facility] Comment on above: Performed By: #### C BC ####[facility] [address] [place], [place] [address]Dr. Keturah Phillip LYMPH # 2.4 103/ul Normal 1.2-3.8 [facility] Comment on above: Performed By: #### C BC ####[facility] [address] [place], [place] [address]Dr. Elisaeli Fisher Lymphocytes/100 WBC (Bld) 22.3 % Normal 20.5-60.0 [facility] Comment on above: Performed By: #### C BC ####[facility] [address] [address]Dr. Keturah Fisher MANUAL DIFF REQ NO Normal [facility] Comment on above: Performed By: #### C BC ####[facility] [address] [id number]. Keturah Fisher MCH (RBC) [Entitic mass] 32.5 pg Normal 26.7-34.0 [facility] Comment on above: Performed By: #### C BC ####[facility] [address] [address]Dr. Keturah Fisher MCHC (RBC) [Mass/Vol] 33.3 g/dL Normal 29.9-35.2 [facility] Comment on above: Performed By: #### C BC ####[facility] [address] [place], [place] [address]Dr. Keturah Fishre MCV (RBC) [Entitic vol] 97.5 fL Normal 81.0-99.0 [facility] Comment on above: Performed By: #### C BC ####[facility] [address] [place], [place] [address]Dr. Keturah Fisher MONO # 1.0 103/ul Critically high 0.3-0.8 [facility] Comment on above: Performed By: #### C BC ####[facility] [address] [place], [place] [address]Dr. Keturah Fisher Monocytes/100 WBC (Bld) 8.7 % Normal 1.7-12.0 [facility] Comment on above: Performed By: #### C BC ####[facility] [address] [place], [place] [address]DrGopal Fisher NEUT # 7.3 103/ul Critically high 1.4-6.5 [facility] Comment on above: Performed By: #### C BC ####[facility] [address] [place], [place] [address]DrGopal Fisher Neutrophils/100 WBC (Bld) 67.0 % Normal 43.0-75.0 [facility] Comment on above: Performed By: #### C BC ####[facility] [address] [address]Dr. Keturah Fisher Platelet mean volume (Bld) [Entitic vol] 9.5 fL Normal 9.5-13.5 [facility] Comment on above: Performed By: #### C BC ####[facility] [address] [address]Dr. Keturah Fisher PLT 272 103/ul Normal 150-450 [facility] Comment on above: Performed By: #### C BC ####[facility] [address] [address]Dr. Keturah Fisher RBC 4.34 106/ul Normal 4.20-5.40 [facility] Comment on above: Performed By: #### C BC ####[facility] [address] [address]Dr. Keturah Fisher WBC 10.9 103/ul Normal 4.0-11.0 [facility] Comment on above: Performed By: #### C BC ####[facility] [id number]. Keturah Fisher CT ABD/PELV W CONon 08-14-19 [...] HEBERT MCPHERSON Date: 2021-08-13 17:14 Normal [facility] ER URINE PROFILEon 2 Bilirubin Ql (U) Negative Normal NEGATIVE [facility] Comment on above: Performed By: #### C BC #### [facility] [address] [place] [address] Dr. Keturah Fisher Clarity (U) CLEAR Normal CLEAR [facility] Comment on above: Performed By: #### C BC #### [facility] [address] [address] [address] Keturah Fisher Color (U) LT. YELLOW Normal YELLOW [facility] Comment on above: Performed By: #### C BC #### [facility] [address] [address] [address] Keturah BAH A micrscopic examina tion will be performed if indicated. Normal [facility] Comment on above: Performed By: #### C BC #### [facility] [address] [place] [address] Dr. Keturah Fisher Glucose Ql (U) Negative Normal NEGATIVE [facility] Comment on above: Performed By: #### C BC #### [facility] [address] [place] [address] Dr. Keturah Fisher Hemoglobin Ql (U) Negative Normal NEGATIVE [facility] Comment on above: Performed By: #### C BC #### [facility] [address] [place] [address] Dr. Keturah Fisher Ketones Ql (U) Negative Normal NEGATIVE [facility] Comment on above: Performed By: #### C BC #### [facility] [address] [place] [address] Dr. Keturah Fisher LEUKOCYTES Negative Normal NEGATIVE [facility] Comment on above: Performed By: #### C BC #### [facility] [address] [place] [address] Dr. Keturah Fisher Nitrite Ql (U) Negative Normal NEGATIVE [facility] Comment on above: Performed By: #### C BC #### [facility] [address] [place] [address] Dr. Keturah Fisher pH (U) 5.5 [pH] Normal 5-9 [facility] Comment on above: Performed By: #### C BC #### [facility] [address] [place] [address] Dr. Keturah Fisher SPEC GRAVITY 1.010 Normal 1.005-<=1. 025 [facility] Comment on above: Performed By: #### C BC #### [facility] [address] [place] [address] Dr. Keturah Fisher UA PROTEIN Negative Normal NEGATIVE/ TRACE [facility] Comment on above: Performed By: #### C BC #### [facility] [address] [place] [address] Dr. Keturah Fisher UR MICRO IND NOT INDICATED Normal [facility] Comment on above: Performed By: #### C BC #### [facility] [address] [place] [address] Dr. Keturah Fisher Urobilinogen Qn (U) 0.2 {Marizol'U}/dL Normal 0.2 - 1. 0 [facility] Comment on above: Performed By: #### C BC #### [facility] [address] [place] [address] Dr. Keturah Fisher LIPASEon 08-13-2021 Lipase [Catalytic activity/Vol] 217.0 U/L Normal 73.0-393.0 [facility] Comment on above: Performed By: #### C BC #### [facility] [address] [place] [address] Dr. Keturah Fisher PROF 14(COMP METB)on 022 Albumin [Mass/Vol] 3.9 g/dL Normal 3.4-5.0 [facility] Comment on above: Performed By: #### C BC #### [facility] [address] [place] [address] Dr. Keturah Fisher Albumin/Globulin [Mass ratio] 1.1 {ratio} Normal [facility] Comment on above: Performed By: #### C BC #### [facility] [address] [place] [address] Dr. Keturah Fisher ALP [Catalytic activity/Vol] 140 U/L Critically high 46-116 [facility] Comment on above: Performed By: #### C BC #### [facility] [address] [place] [address] Dr. Keturah Fisher ALT [Catalytic activity/Vol] 24 U/L Normal 14-59 [facility] Comment on above: Performed By: #### C BC #### [facility] [address] [place] [address] Dr. Keturah Fisher Anion gap [Moles/Vol] 11.7 mmol/L Normal [facility] Comment on above: Performed By: #### C BC #### [facility] [address] [place] [address] Dr. Keturah Fisher AST [Catalytic activity/Vol] 19 U/L Normal 15-37 [facility] Comment on above: Performed By: #### C BC #### [facility] [address] [address] [address] Keturah Fisher Bilirubin [Mass/Vol] 0.2 mg/dL Normal 0.2-1.0 [facility] Comment on above: Performed By: #### C BC #### [facility] [address] [address] [address] Keturah Fisher Calcium [Mass/Vol] 9.9 mg/dL Normal 8.5-10.1 [facility] Comment on above: Performed By: #### C BC #### [facility] [address] [address] [address] Keturah Fisher Chloride [Moles/Vol] 105 mmol/L Normal 98-107 [facility] Comment on above: Performed By: #### C BC #### [facility] [address] [address] [address] Keturah Fisher CO2 [Moles/Vol] 29.1 mmol/L Normal 21.0-32.0 [facility] Comment on above: Performed By: #### C BC #### [facility] [address] [address] [address] Keturah Fisher Creatinine [Mass/Vol] 0.81 mg/dL Normal 0.55-1.02 [facility] Comment on above: Performed By: #### C BC #### [facility] [address] [address] [address] Keturah Fisher EGFR-AF IRAQI >60 Normal >=60 [facility] Comment on above: Performed By: #### C BC #### [facility] [address] [address] [address] Keturah Fisher EGFR-NON AF IRAQI >60 Normal >=60 [facility] Comment on above: Performed By: #### C BC #### [facility] [address] [place] [address] Dr. Keturah Fisher Globulin (S) [Mass/Vol] 3.4 g/dL Normal [facility] Comment on above: Performed By: #### C BC #### [facility] [address] [address] [address] Keturah Fisher Glucose [Mass/Vol] 87 mg/dL Normal 74-106 [facility] Comment on above: Performed By: #### C BC #### [facility] [address] [address] [address] Keturah Fisher Potassium [Moles/Vol] 3.8 mmol/L Normal 3.5-5.1 [facility] Comment on above: Performed By: #### C BC #### [facility] [address] [address] [address] Keturah Fisher Protein [Mass/Vol] 7.3 g/dL Normal 6.4-8.2 [facility] Comment on above: Performed By: #### C BC #### [facility] [address] [address] [address] Keturah Fisher Sodium [Moles/Vol] 142 mmol/L Normal 136-145 [facility] Comment on above: Performed By: #### C BC #### [facility] [address] [address] [address] Keturah Fisher Urea nitrogen [Mass/Vol] 11.0 mg/dL Normal 7.0-18.0 [facility] Comment on above: Performed By: #### C BC #### [facility] [address] [address] [address] Keturah Fisher Urea nitrogen/Creatinine [Mass ratio] 13.6 mg/mg Normal [facility] Comment on above: Performed By: #### C BC #### [facility] [address] [address] [address] Keturah Fisher Albumin [Mass/volume] in Ser um or PlasmaOrdered By: Keaton Barnard on 08-11-2021 Albumin [Mass/Vol] 3.4 g/dL 3.2-5.5 [facility] Basophils Auto (Bld) [#/Vol] Ordered By: Keaton Barnard on 08-11-2021 Basophils (Bld) [#/Vol] 0.1 10*3/uL 0.0-0.2 [facility] Basophils/100 WBC Auto (Bld) Ordered By: Keaton Barnard on 08-11-2021 Basophils/100 WBC (Bld) 0.9 % . [facility] Bilirubin Test strip Ql (U)O rdered By: Keaton Barnard on 08-11-2021 Bilirubin Ql (U) Negative Negative [facility] Blood hemoglobin measurement (mass/volume)Ordered By: Keaton Barnard on 08-11-2021 Hemoglobin (Bld) [Mass/Vol] 14.1 g/dL 11.8-15.4 [facility] Blood leukocytes automated c ount (number/volume)Ordered By: Keaton Barnard on 08-11-2021 WBC (Bld) [#/Vol] 9.7 10*3/uL 4.5-11.0 [facility] Color Auto (U)Ordered By: Herminia Barnard on 08-11-2021 Color (U) Yellow Yellow [facility] Creatinine and Glomerular fi ltration rate.predicted panel (S/P/Bld)Ordered By: Keaton Barnard on 08-11-2021 Creatinine [Mass/Vol] 0.95 mg/dL 0.44-1.[address] [facility] Direct bilirubin measurement Ordered By: Keaton Barnard on 08-11-2021 Bilirubin.direct [Mass/Vol] mg/dL 0.0-0.4 [facility] Eosinophils Auto (Bld) [#/Vo l]Ordered By: Keaton Barnard on 08-11-2021 Eosinophils (Bld) [#/Vol] 0.1 10*3/uL 0.0-0.45 [facility] Eosinophils/100 WBC Auto (Bl d)Ordered By: Keaton Barnard on 08-11-2021 Eosinophils/100 WBC (Bld) 1.3 % . [facility] Erythrocyte distribution wid th Auto (RBC) [Ratio]Ordered By: Keaton Barnard on 08-11-2021 Erythrocyte distribution width (RBC) [Ratio] 13.2 % 11.9-15.3 [facility] Estimated glomerular filtrat ion rate (GFR) non- AmericanOrdered By: Keaton Barnard on 08-11-2021 GFR/1.73 sq M.predicted among non-blacks MDRD (S/P/Bld) [Vol rate/Area] > 60 mL/Min [facility] Globulin Calc (S) [Mass/Vol] Ordered By: Keaton Barnard on 08-11-2021 Globulin (S) [Mass/Vol] 2.6 g/dL [facility] Hematocrit Auto (Bld) [Volum e fraction]Ordered By: Keaton Barnard on 08-11-2021 Hematocrit (Bld) [Volume fraction] 42.1 % 34.0-46.4 [facility] Ketones Auto test strip (U) [Mass/Vol]Ordered By: Keaton Barnard on 08-11-2021 Ketones (U) [Mass/Vol] Negative Negative Fi [facility] - Chemistry and C hemistry - challengeOrdered By: Keaton Barnard on 08-11-2021 Lipase [Catalytic activity/Vol] 89.0 U/L - [facility] - CoagulationOrde red By: Keaton Barnard on 08-11-2021 PT Coag (PPP) [Time] 12.5 s 9.0-12.9 [facility] - Hematology and Cell countsOrdered By: Keaton Barnard on 08-11-2021 Nucleated RBC/100 WBC (Bld) [Ratio] 0.1 % 0-0.5 [facility] Lymphocytes Auto (Bld) [#/Vo l]Ordered By: Keaton Barnard on 08-11-2021 Lymphocytes (Bld) [#/Vol] 2.5 10*3/uL 1.00-4.8 [facility] Lymphocytes/100 WBC Auto (Bl d)Ordered By: Keaton Barnard on 08-11-2021 Lymphocytes/100 WBC (Bld) 25.8 % . [facility] MCH Auto (RBC) [Entitic mass ]Ordered By: Keaton Barnard on 08-11-2021 MCH (RBC) [Entitic mass] 32.4 pg 24.7-34.3 [facility] MCHC Auto (RBC) [Mass/Vol]Or dered By: Keaton Barnard on 08-11-2021 MCHC (RBC) [Mass/Vol] 33.4 g/dL 32.0-35.[address] [facility] MCV Auto (RBC) [Entitic vol] Ordered By: Keaton Barnard on 08-11-2021 MCV (RBC) [Entitic vol] 96.8 fL 80-100 [facility] Monocytes Auto (Bld) [#/Vol] Ordered By: Keaton Barnard on 08-11-2021 Monocytes (Bld) [#/Vol] 0.8 10*3/uL 0.0-0.8 [facility] Monocytes/100 WBC Auto (Bld) Ordered By: Keaton Barnard on 08-11-2021 Monocytes/100 WBC (Bld) 8.7 % . [facility] Neutrophils Auto (Bld) [#/Vo l]Ordered By: Keaton Barnard on 08-11-2021 Neutrophils (Bld) [#/Vol] 6.1 10*3/uL 1.8-7.7 [facility] Neutrophils/100 WBC Auto (Bl d)Ordered By: Keaton Barnard on 08-11-2021 Neutrophils/100 WBC (Bld) 63.3 % . [facility] Nitrite Test strip Ql (U)Ord ered By: Keaton Barnard on 08-11-2021 Nitrite Ql (U) Negative Negative [facility] No Panel InformationOrdered By: Keaton Barnard on 08-11-2021 Estimated GFR () > 60 mL/Min [facility] Comment on above: GFR estimated refere nce range: According to KDOQI guidelines, <60 ml/min/1.73m2 is sufficient to diagnose a patient with chronic kidney disease. Pharmacy Creatinine Clearance (Chem 62.33 [facility] Platelet mean volume Auto (B ld) [Entitic vol]Ordered By: Keaton Barnard on 08-11-2021 Platelet mean volume (Bld) [Entitic vol] 8.0 fL 6.3-10.7 [facility] Platelet poor plasma interna tional normalized ratio (INR) by coagulation assay (relatOrdered By: Keaton Barnard on 08-11-2021 INR Coag (PPP) [Relative time] 1.1 {INR} [facility] Comment on above: INR Therapeutic [...] 08-11-2021 Platelets (Bld) [#/Vol] 252 10*3/uL 150-450 [facility] Protein Auto test strip (U) [Mass/Vol]Ordered By: Keaton Barnard on 08-11-2021 Protein (U) [Mass/Vol] Negative Negative Fi [facility] Protein [Mass/volume] in Ser um or PlasmaOrdered By: Keaton Barnard on 08-11-2021 Protein [Mass/Vol] 6.0 g/dL 6.1-7.9 [facility] RBC Auto (Bld) [#/Vol]Ordere d By: Keaton Barnard on 08-11-2021 RBC (Bld) [#/Vol] 4.35 10*6/uL 3.60-5.00 [facility] Serum or plasma alanine hughes otransferase measurement without P-5'-P (enzymatic activiOrdered By: Keaton Barnard on 08-11-2021 ALT No additional P-5'-P [Catalytic activity/Vol] 12 U/L 10-60 [facility] Serum or plasma albumin/glob ulin mass ratioOrdered By: Keaton Barnard on 08-11-2021 Albumin/Globulin [Mass ratio] 1.3 {ratio} [facility] Serum or plasma alkaline jaqueline sphatase measurement (enzymatic activity/volume)Ordered By: Keaton Barnard on 08-11-2021 ALP [Catalytic activity/Vol] 98 U/L 32-92 [facility] Serum or plasma aspartate am inotransferase measurement (enzymatic activity/volume)Ordered By: Keaton Barnard on 08-11-2021 AST [Catalytic activity/Vol] 17 U/L 10-42 [facility] Serum or plasma calcium priscilla urement (mass/volume)Ordered By: Keaton Barnard on 08-11-2021 Calcium [Mass/Vol] 9.3 mg/dL 8.2-10.2 [facility] Serum or plasma chloride daron surement (moles/volume)Ordered By: Keaton Barnard on 08-11-2021 Chloride [Moles/Vol] 104 mmol/L 95-114 [facility] Serum or plasma glucose priscilla urement (mass/volume)Ordered By: Keaton Barnard on 08-11-2021 Glucose [Mass/Vol] 95 mg/dL 70-100 [facility] Comment on above: ADA recommended refe rence range Random Glucose Reference Range is dependent on time and content of last meal. Glucose of more than 200 mg/dL in a nonstressed, ambulatory subject supports the diagnosis of Diabetes Mellitus. Serum or plasma non-glucuron idated bilirubin measurement (mass/volume)Ordered By: Keaton Barnard on 08-11-2021 Bilirubin.indirect [Mass/Vol] TNP [facility] Comment on above: Test not performed Serum or plasma potassium me asurement (moles/volume)Ordered By: Keaton Barnard on 08-11-2021 Potassium [Moles/Vol] 3.8 mmol/L 3.5-5.[address] [facility] Serum or plasma sodium measu rement (moles/volume)Ordered By: Keaton Barnard on 08-11-2021 Sodium [Moles/Vol] 138 mmol/L 136-146 [facility] Serum or plasma total biliru bin measurement (mass/volume)Ordered By: Keaton Barnard on 08-11-2021 Bilirubin [Mass/Vol] 0.3 mg/dL 0.3-1.2 [facility] Serum or plasma total carbon dioxide measurement (moles/volume)Ordered By: Keaton Barnard on 08-11-2021 CO2 [Moles/Vol] 24.8 mmol/L 22.0-30.0 [facility] Serum or plasma urea nitroge n measurement (mass/volume)Ordered By: Keaton Barnard on 08-11-2021 Urea nitrogen [Mass/Vol] 10 mg/dL 9-23 [facility] Specific gravity Auto test s trip (U) [Rel density]Ordered By: Keaton Barnard on 08-11-2021 Specific gravity (U) [Rel density] 1.028 1.001-1.03 0 [facility] Troponin I.cardiac [Mass/vol ume] in Serum or Plasma by High sensitivity methodOrdered By: Keaton Barnard on 08-11-2021 Troponin I.cardiac High sensitivity method [Mass/Vol] 3 pg/mL 0-15 [facility] Urine clarity by refractomet ry automatedOrdered By: Keaton Barnard on 08-11-2021 Clarity Refractometry automated (U) Clear Clear [facility] Urine glucose measurement by automated test strip (mass/volume)Ordered By: Keaton Barnard on 08-11-2021 Glucose Auto test strip (U) [Mass/Vol] Normal mg/dL Normal [facility] Urine hemoglobin detection b y automated test stripOrdered By: Keaton Barnard on 08-11-2021 Hemoglobin Auto test strip Ql (U) Negative Negative [facility] Urine leukocyte esterase det ection by automated test stripOrdered By: Keaton Barnard on 08-11-2021 Leukocyte esterase Auto test strip Ql (U) Negative Negative [facility] Urobilinogen Auto test strip (U) [Mass/Vol]Ordered By: Keaton Barnard on 08-11-2021 Urobilinogen (U) [Mass/Vol] Normal mg/dL Normal [facility] pH Auto test strip (U)Ordere d By: Keaton Barnard on 08-11-2021 pH (U) 5.0 [pH] 5.0-9.0 [facility] AMYLASEon 07-31-2021 Amylase [Catalytic activity/Vol] 158 U/L Critically high 25-115 [facility] Comment on above: Performed By: #### L IPA, CMP, CRP, NAT #### [facility] [address] [place], [place] [address] Dr. Keturah Fisher CBC AUTO DIFFon 07-31-2021 BASO # 0.1 103/ul Normal 0.0-0.1 [facility] Comment on above: Performed By: #### C BC ####[facility] [address] [place] [address]Dr. Keturah Fisher Basophils/100 WBC (Bld) 0.7 % Normal 0.2-2.0 [facility] Comment on above: Performed By: #### C BC ####[facility] [address] [place] [id number] Fisher EO # 0.1 103/ul Normal 0.0-0.7 [facility] Comment on above: Performed By: #### C BC ####[facility] [address] [place] [id number]. Keturah Fisher Eosinophils/100 WBC (Bld) 0.9 % Normal 0.9-7.0 [facility] Comment on above: Performed By: #### C BC ####[facility] [address] [place], [place] [address]Dr. Keturah Fisher Erythrocyte distribution width (RBC) [Ratio] 12.7 % Normal 11.0-15.0 [facility] Comment on above: Performed By: #### C BC ####[facility] [address] [place], [place] [address]Dr. Keturah Fisher Hematocrit (Bld) [Volume fraction] 43.2 % Normal 36.0-48.0 [facility] Comment on above: Performed By: #### C BC ####[facility] [address] [place], [place] [address]Dr. Keturah Fisher Hemoglobin (Bld) [Mass/Vol] 14.5 g/dL Normal 12.0-16.0 [facility] Comment on above: Performed By: #### C BC ####[facility] [address] [place], [place] [address]Dr. Keturah Fisher IG # 0.04 10e3/ul Critically high 0.00-0.03 [facility] Comment on above: Performed By: #### C BC ####[facility] [address] [place], [place] [address]Dr. Keturah Fisher IG % 0.4 % Normal 0.0-0.5 [facility] Comment on above: Performed By: #### C BC ####[facility] [address] [place], [place] [address]Dr. Keturah Fisher LYMPH # 2.8 103/ul Normal 1.2-3.8 [facility] Comment on above: Performed By: #### C BC ####[facility] [address] [place], [place] [address]Dr. Keturah Fisher Lymphocytes/100 WBC (Bld) 24.9 % Normal 20.5-60.0 [facility] Comment on above: Performed By: #### C BC ####[facility] [address] [place] [address]Dr. Keturah Fisher MANUAL DIFF REQ NO Normal [facility] Comment on above: Performed By: #### C BC ####[facility] [address] [place] [id number]. Keturah Fisher MCH (RBC) [Entitic mass] 32.7 pg Normal 26.7-34.0 [facility] Comment on above: Performed By: #### C BC ####[facility] [address] [place] [address]Dr. Keturah Fisher MCHC (RBC) [Mass/Vol] 33.6 g/dL Normal 29.9-35.2 [facility] Comment on above: Performed By: #### C BC ####[facility] [address] [place], [place] [address]Dr. Keturah Fisher MCV (RBC) [Entitic vol] 97.5 fL Normal 81.0-99.0 [facility] Comment on above: Performed By: #### C BC ####[facility] [address] [place], [place] [address]Dr. Keturah Fisher MONO # 0.9 103/ul Critically high 0.3-0.8 [facility] Comment on above: Performed By: #### C BC ####[facility] [address] [place] [address]Dr. Keturah Fisher Monocytes/100 WBC (Bld) 8.1 % Normal 1.7-12.0 [facility] Comment on above: Performed By: #### C BC ####[facility] [address] [place], [place] [address]DrGopal Fisher NEUT # 7.3 103/ul Critically high 1.4-6.5 [facility] Comment on above: Performed By: #### C BC ####[facility] [address] [place], [place] [address]Dr. Keturah Fisher Neutrophils/100 WBC (Bld) 65.0 % Normal 43.0-75.0 [facility] Comment on above: Performed By: #### C BC ####[facility] [address] [place] [address]Dr. Keturah Fisher Platelet mean volume (Bld) [Entitic vol] 10.0 fL Normal 9.5-13.5 [facility] Comment on above: Performed By: #### C BC ####[facility] [address] [place] [address]Dr. Keturah Fisher PLT 245 103/ul Normal 150-450 [facility] Comment on above: Performed By: #### C BC ####[facility] [address] [place] [address]Dr. Keturah Fisher RBC 4.43 106/ul Normal 4.20-5.40 [facility] Comment on above: Performed By: #### C BC ####[facility] [address] [place] [address]Dr. Keturah Fisher WBC 11.2 103/ul Critically high 4.0-11.0 [facility] Comment on above: Performed By: #### C BC ####[facility] [address] [place] [address]Dr. Keturah Fisher LIPASEon 07-31-2021 Lipase [Catalytic activity/Vol] 439.0 U/L Critically high 73.0-393.0 [facility] Comment on above: Performed By: #### L IPA, CMP, CRP, NAT #### [facility] [address] [address] [address] Keturah Fisher PROF 14(COMP METB)on 022 Albumin [Mass/Vol] 3.6 g/dL Normal 3.4-5.0 [facility] Comment on above: Performed By: #### L IPA, CMP, CRP, NAT #### [facility] [address] [address] [address] Keturah Fisher Albumin/Globulin [Mass ratio] 1.1 {ratio} Normal [facility] Comment on above: Performed By: #### L IPA, CMP, CRP, NAT #### [facility] [address] [place] [address] [address] Keturah Fisher ALP [Catalytic activity/Vol] 119 U/L Critically high 46-116 [facility] Comment on above: Performed By: #### L IPA, CMP, CRP, NAT #### [facility] [address] [place] [address] Dr. Keturah Fisher ALT [Catalytic activity/Vol] 20 U/L Normal 14-59 [facility] Comment on above: Performed By: #### L IPA, CMP, CRP, NAT #### [facility] [address] [place] [address] Dr. Keturah Fisher Anion gap [Moles/Vol] 13.4 mmol/L Normal [facility] Comment on above: Performed By: #### L IPA, CMP, CRP, NAT #### [facility] [address] [place] [address] Dr. Keturah Fisher AST [Catalytic activity/Vol] 16 U/L Normal 15-37 [facility] Comment on above: Performed By: #### L IPA, CMP, CRP, NAT #### [facility] [address] [place] [address] Dr. Keturah Fisher Bilirubin [Mass/Vol] 0.1 mg/dL Critically low 0.2-1.0 [facility] Comment on above: Performed By: #### L IPA, CMP, CRP, NAT #### [facility] [address] [place] [address] Dr. Keturah Fisher Calcium [Mass/Vol] 8.9 mg/dL Normal 8.5-10.1 [facility] Comment on above: Performed By: #### L IPA, CMP, CRP, NAT #### [facility] [address] [place] [address] Dr. Keturah Fisher Chloride [Moles/Vol] 106 mmol/L Normal 98-107 [facility] Comment on above: Performed By: #### L IPA, CMP, CRP, NAT #### [facility] [address] [place] [address] Dr. Keturah Fisher CO2 [Moles/Vol] 25.4 mmol/L Normal 21.0-32.0 [facility] Comment on above: Performed By: #### L IPA, CMP, CRP, NAT #### [facility] [address] [place] [address] [address] Keturah Fisher Creatinine [Mass/Vol] 0.73 mg/dL Normal 0.55-1.02 [facility] Comment on above: Performed By: #### L IPA, CMP, CRP, NAT #### [facility] [address] [place] [address] [address] Keturah Fisher EGFR-AF IRAQI >60 Normal >=60 [facility] Comment on above: Performed By: #### L IPA, CMP, CRP, NAT #### [facility] [address] [place] [address] Dr. Keturah Fisher EGFR-NON AF IRAQI >60 Normal >=60 [facility] Comment on above: Performed By: #### L IPA, CMP, CRP, NAT #### [facility] [address] [place] [address] Dr. Keturah Fisher Globulin (S) [Mass/Vol] 3.2 g/dL Normal [facility] Comment on above: Performed By: #### L IPA, CMP, CRP, NAT #### [facility] [address] [place] [address] Dr. Keturah Fisher Glucose [Mass/Vol] 105 mg/dL Normal 74-106 [facility] Comment on above: Performed By: #### L IPA, CMP, CRP, NAT #### [facility] [address] [address] [address] Keturah Fisher Potassium [Moles/Vol] 3.8 mmol/L Normal 3.5-5.1 [facility] Comment on above: Performed By: #### L IPA, CMP, CRP, NAT #### [facility] [address] [place] [address] Dr. Keturah Fisher Protein [Mass/Vol] 6.8 g/dL Normal 6.4-8.2 [facility] Comment on above: Performed By: #### L IPA, CMP, CRP, NAT #### [facility] [address] [place] [address] Dr. Keturah Fisher Sodium [Moles/Vol] 141 mmol/L Normal 136-145 [facility] Comment on above: Performed By: #### L IPA, CMP, CRP, NAT #### [facility] [address] [address] [address] Keturah Fisher Urea nitrogen [Mass/Vol] 12.0 mg/dL Normal 7.0-18.0 [facility] Comment on above: Performed By: #### L IPA, CMP, CRP, NAT #### [facility] [address] [address] [address] Keturah Fisher Urea nitrogen/Creatinine [Mass ratio] 16.4 mg/mg Normal [facility] Comment on above: Performed By: #### L IPA, CMP, CRP, NAT #### [facility] [address] [place] [address] Dr. Keturah Fisher TROPONIN, HIGH SENSITIVITYon 07-31-2021 HSTROP 4.2 pg/mL Normal 4.0-51.3 [facility] Comment on above: Result Comment: CUT- OFF POINTS HAVE BEEN ESTABLISHED BASED ON THE FOURTH UNIVERSAL DEFINITIONS OF MYOCARDIAL INFARCTION. THE UPPER REFERENCE LIMIT (URL) OF TROPONIN, DEFINED THE 99TH PERCENTILE OF cTnI DISTRIBUTION IN A REFERENCE POPULATION, HAS BEEN CONFIRMED THE DECISION THRESHOLD FOR [place] DIAGNOSIS. Performed By: #### L IPA, CMP, CRP, NAT #### [facility] [address] [address] [address] Keturah Fisher AMYLASEon 07-19-2021 Amylase [Catalytic activity/Vol] 198 U/L Critically high 25-115 [facility] Comment on above: Performed By: #### A MY, LIPA, CMP ####[facility] [address] [address]Dr. Keturah Fisher CBC AUTO DIFFon 07-19-2021 BASO # 0.1 103/ul Normal 0.0-0.1 [facility] Comment on above: Performed By: #### C BC ####[facility] [address] [address]Dr. Keturah Fisher Basophils/100 WBC (Bld) 0.7 % Normal 0.2-2.0 [facility] Comment on above: Performed By: #### C BC ####[facility] [address] [address]Dr. Keturah Fisher EO # 0.1 103/ul Normal 0.0-0.7 [facility] Comment on above: Performed By: #### C BC ####[facility] [address] [place], [place] [address]Dr. Keturah Fisher Eosinophils/100 WBC (Bld) 1.0 % Normal 0.9-7.0 [facility] Comment on above: Performed By: #### C BC ####[facility] [address] [place], [place] [address]Dr. Keturah Fisher Erythrocyte distribution width (RBC) [Ratio] 12.5 % Normal 11.0-15.0 [facility] Comment on above: Performed By: #### C BC ####[facility] [address] [place], [place] [address]Dr. Elisaeli Fisher Hematocrit (Bld) [Volume fraction] 42.4 % Normal 36.0-48.0 [facility] Comment on above: Performed By: #### C BC ####[facility] [address] [place], [place] [address]Dr. Keturah Fisher Hemoglobin (Bld) [Mass/Vol] 14.2 g/dL Normal 12.0-16.0 [facility] Comment on above: Performed By: #### C BC ####[facility] [address] [place], [place] [address]Dr. Elisaeli Fisher IG # 0.03 10e3/ul Normal 0.00-0.03 [facility] Comment on above: Performed By: #### C BC ####[facility] [address] [place], [place] [address]Dr. Elisaeli Fisher IG % 0.3 % Normal 0.0-0.5 [facility] Comment on above: Performed By: #### C BC ####[facility] [address] [place], [place] [address]Dr. Keturah Fisher LYMPH # 3.0 103/ul Normal 1.2-3.8 [facility] Comment on above: Performed By: #### C BC ####[facility] [address] [id number]. Elisaeli Fisher Lymphocytes/100 WBC (Bld) 29.5 % Normal 20.5-60.0 [facility] Comment on above: Performed By: #### C BC ####[facility] [address] [id number]. Keturah Fisher MANUAL DIFF REQ NO Normal [facility] Comment on above: Performed By: #### C BC ####[facility] [address] [id number]. Keturah Fisher MCH (RBC) [Entitic mass] 32.8 pg Normal 26.7-34.0 [facility] Comment on above: Performed By: #### C BC ####[facility] [address] [id number]. Keturah Fisher MCHC (RBC) [Mass/Vol] 33.5 g/dL Normal 29.9-35.2 [facility] Comment on above: Performed By: #### C BC ####[facility] [address] [id number]. Keturah Fisher MCV (RBC) [Entitic vol] 97.9 fL Normal 81.0-99.0 [facility] Comment on above: Performed By: #### C BC ####[facility] [address] [phone]. Keturah Fisher MONO # 1.0 103/ul Critically high 0.3-0.8 [facility] Comment on above: Performed By: #### C BC ####[facility] [address] [phone]. Keturah Fisher Monocytes/100 WBC (Bld) 9.3 % Normal 1.7-12.0 [facility] Comment on above: Performed By: #### C BC ####[facility] [address] [phone]. Keturah Fisher NEUT # 6.1 103/ul Normal 1.4-6.5 [facility] Comment on above: Performed By: #### C BC ####[facility] [address] [address]Dr. Keturah Fisher Neutrophils/100 WBC (Bld) 59.2 % Normal 43.0-75.0 [facility] Comment on above: Performed By: #### C BC ####[facility] [address] [address]Dr. Elisaeli Phillip Platelet mean volume (Bld) [Entitic vol] 9.8 fL Normal 9.5-13.5 [facility] Comment on above: Performed By: #### C BC ####[facility] [address] [address]Dr. Keturah Fisher PLT 249 103/ul Normal 150-450 [facility] Comment on above: Performed By: #### C BC ####[facility] [address] [place], [place] [address]Dr. Keturah Fisher RBC 4.33 106/ul Normal 4.20-5.40 [facility] Comment on above: Performed By: #### C BC ####[facility] [address] [address]Dr. Keturah Phillip WBC 10.2 103/ul Normal 4.0-11.0 [facility] Comment on above: Performed By: #### C BC ####[facility] [address] [place], [place] [address]Dr. Keturah Fisher LIPASEon 07-19-2021 Lipase [Catalytic activity/Vol] 554.0 U/L Critically high 73.0-393.0 [facility] Comment on above: Performed By: #### A MY, LIPA, CMP ####[facility] [address] [address]Dr. Keturah Fisher PROF 14(COMP METB)on 022 Albumin [Mass/Vol] 4.0 g/dL Normal 3.4-5.0 [facility] Comment on above: Performed By: #### A MY, LIPA, CMP ####[facility] [address] [place], [place] [address]Dr. Keturah Fisher Albumin/Globulin [Mass ratio] 1.1 {ratio} Normal [facility] Comment on above: Performed By: #### A ROB BERNSTEIN, CMP ####[facility] [address] [address]Dr. Keturah Fisher ALP [Catalytic activity/Vol] 141 U/L Critically high 46-116 [facility] Comment on above: Performed By: #### A ROB BERNSTEIN, CMP ####[facility] [address] [address]Dr. Keturah Fisher ALT [Catalytic activity/Vol] 21 U/L Normal 14-59 [facility] Comment on above: Performed By: #### A ROB BERNSTEIN, CMP ####[facility] [address] [address]Dr. Keturah Fisher Anion gap [Moles/Vol] 10.3 mmol/L Normal [facility] Comment on above: Performed By: #### A ROB BERNSTEIN, CMP ####[facility] [address] [place], [place] [address]Dr. Keturah Fisher AST [Catalytic activity/Vol] 22 U/L Normal 15-37 [facility] Comment on above: Performed By: #### A ROB BERNSTEIN, CMP ####[facility] [address] [address]Dr. Elisaeli Fisher Bilirubin [Mass/Vol] 0.3 mg/dL Normal 0.2-1.0 [facility] Comment on above: Performed By: #### A ROB BERNSTEIN, CMP ####[facility] [address] [address]Dr. Elisaeli Fisher Calcium [Mass/Vol] 9.9 mg/dL Normal 8.5-10.1 [facility] Comment on above: Performed By: #### A ROB BERNSTEIN, CMP ####[facility] [address] [address]Dr. Keturah Fisher Chloride [Moles/Vol] 103 mmol/L Normal 98-107 [facility] Comment on above: Performed By: #### A ROB BERNSTEIN, CMP ####[facility] [address] [id number]. Keturah Fisher CO2 [Moles/Vol] 27.6 mmol/L Normal 21.0-32.0 [facility] Comment on above: Performed By: #### A MY, LIPA, CMP ####[facility] [address] [address]Dr. Keturah Fisher Creatinine [Mass/Vol] 0.93 mg/dL Normal 0.55-1.02 [facility] Comment on above: Performed By: #### A MY, LIPA, CMP ####[facility] [address] [address]Dr. Keturah Fisher EGFR-AF IRAQI >60 Normal >=60 [facility] Comment on above: Performed By: #### A MY, LIPA, CMP ####[facility] [address] [address]Dr. Keturah Fisher EGFR-NON AF IRAQI >60 Normal >=60 [facility] Comment on above: Performed By: #### A MY, LIPA, CMP ####[facility] [address] [address]Dr. Keturah Fisher Globulin (S) [Mass/Vol] 3.5 g/dL Normal [facility] Comment on above: Performed By: #### A MY, LIPA, CMP ####[facility] [address] [address]Dr. Keturah Fisher Glucose [Mass/Vol] 99 mg/dL Normal 74-106 [facility] Comment on above: Performed By: #### A MY, LIPA, CMP ####[facility] [address] [address]Dr. Keturah Fisher Potassium [Moles/Vol] 3.9 mmol/L Normal 3.5-5.1 [facility] Comment on above: Performed By: #### A MY, LIPA, CMP ####[facility] [address] [address]Dr. Keturah Fisher Protein [Mass/Vol] 7.5 g/dL Normal 6.4-8.2 [facility] Comment on above: Performed By: #### A ROB BERNSTEIN, CMP ####[facility] [address] [address]Dr. Keturah Fisher Sodium [Moles/Vol] 137 mmol/L Normal 136-145 [facility] Comment on above: Performed By: #### A ROB BERNSTEIN, CMP ####[facility] [address] [id number]. Keturah Fisher Urea nitrogen [Mass/Vol] 9.0 mg/dL Normal 7.0-18.0 [facility] Comment on above: Performed By: #### A ROB BERNSTEIN, CMP ####[facility] [address] [address]Dr. Keturah Fisher Urea nitrogen/Creatinine [Mass ratio] 9.7 mg/mg Normal [facility] Comment on above: Performed By: #### A ROB BERNSTEIN, CMP ####[facility] [address] [address]Dr. Keturah Fisher XR ABD FLAT UP_PA Jorje [...] LYNNE PERDOMO Date: 2021-07-19 16:57 Normal [facility] COVID Quick Testingon 2021 Result Positive [employer] Other Amylaseon 03-26-2020 Amylase [Catalytic activity/Vol] 185 U/L High 28 - 100 U/L [facility] [place] CBC Auto Differentialon 03-09 Basophils (Bld) [#/Vol] 0.06 10*3/uL [place] Basophils/100 WBC (Bld) 1 % 0 - 2 % [place] Differential Type NOT REPORTED [place] Eosinophils (Bld) [#/Vol] 0.12 10*3/uL [place] Eosinophils/100 WBC (Bld) 1 % 1 - 4 % [place] Erythrocyte distribution width (RBC) [Ratio] 12.4 % 11.8 - 14.4 % [place] Hematocrit (Bld) [Volume fraction] 40.6 % 36.3 - 47.1 % [place] Hemoglobin (Bld) [Mass/Vol] 13.7 g/dL 11.9 - 15.1 g/dL [place] Immature granulocytes (Bld) [#/Vol] 0 % 0 [place] Immature granulocytes (Bld) [#/Vol] 10*3/uL [place] Lymphocytes (Bld) [#/Vol] 2.62 10*3/uL [place] Lymphocytes/100 WBC (Bld) 27 % 24 - 43 % [place] MCH (RBC) [Entitic mass] 33.4 pg 25.2 - 33.5 pg [place] MCHC (RBC) [Mass/Vol] 33.7 g/dL 28.4 - 34.8 g/dL [place] MCV (RBC) [Entitic vol] 99.0 fL 82.6 - 102.9 fL [place] Monocytes (Bld) [#/Vol] 0.78 10*3/uL [place] Monocytes/100 WBC (Bld) 8 % 3 - 12 % [place] Platelet mean volume (Bld) [Entitic vol] 9.4 fL 8.1 - 13.5 fL [place] Platelets (Bld) [#/Vol] 235 10*3/uL [place] Platelets (Bld) [#/Vol] NOT REPORTED [place] RBC (Bld) [#/Vol] 4.10 10*6/uL 3.95 - 5.11 m/uL [place] RBC morphology finding Nom (Bld) NOT REPORTED [place] Segmented neutrophils/100 WBC (Bld) 63 % 36 - 65 % [place] Segs Absolute 5.96 [place] WBC (Bld) [#/Vol] 9.6 10*3/uL [place] WBC (Bld) [#/Vol] 0.0 10*3/uL 0.0 per 100 WBC [place] WBC Morphology NOT REPORTED [place] Comprehensive Metabolic Pane l w/ Reflex to MGon 03-26-2020 Albumin [Mass/Vol] 4.3 g/dL 3.5 - 5.2 g/dL [place] Albumin/Globulin [Mass ratio] 1.7 {ratio} [place] ALP [Catalytic activity/Vol] 117 U/L High 35 - 104 U/L [place] ALT [Catalytic activity/Vol] 11 U/L 5 - 33 U/L [place] Anion gap [Moles/Vol] 9 mmol/L 9 - 17 mmol/L [place] AST [Catalytic activity/Vol] 18 U/L <32 [place] Bilirubin Ql (U) 0.15 mg/dL Low 0.3 - 1.2 mg/dL [place] Bun/Cre Ratio 12 [place] Calcium [Mass/Vol] 9.7 mg/dL 8.6 - 10. 4 mg/dL [place] Chloride [Moles/Vol] 102 mmol/L 98 - 10 7 mmol/L [place] CO2 [Moles/Vol] 25 mmol/L 20 - 31 mmol/L [place] Creatinine [Mass/Vol] 0.74 mg/dL 0.5 - 0.9 mg/dL [place] GFR >60 >60 mL/min [place] GFR Non- >60 >60 mL/min [place] Glucose [Mass/Vol] 94 mg/dL 70 - 99 mg/dL [place] Potassium [Moles/Vol] 4.2 mmol/L 3.7 - 5.3 mmol/L [place] Protein [Mass/Vol] 6.8 g/dL 6.4 - 8.3 g/dL [place] Sodium [Moles/Vol] 136 mmol/L 135 - 144 mmol/L [place] Urea nitrogen [Mass/Vol] 9 mg/dL 6 - 20 mg/dL [place] Lactic Acidon 03-26-2020 Lactate [Moles/Vol] 1.3 mmol/L 0.5 - 2. 2 mmol/L [place] Lipaseon 03-26-2020 Interpretation and review of laboratory results Abnormal [place] Lipase [Catalytic activity/Vol] 225 U/L Critically high 13 - 60 U/L [place] Metabolic Panelon 03-26-2020 GFR/1.73 sq M predicted among non-blacks MDRD (S/P/Bld) [Vol rate/Area] [place] Comment on above: Average GFR for 50-5 9 years old: 93 mL/min/1.73sq m Chronic Kidney Disease: <60 mL/min/1.73sq m Kidney failure: <15 mL/min/1.73sq m eGFR calculated using average adult body mass. Additional eGFR calculator available at: http://www.[employer]/multiple_crcl_2012.htm Stage 1: Some kidney damage normal GFR Stage 2: Mild kidney damage GFR 60-89 Stage 3: Moderate kidney damage GFR 30-59 Stage 4: Severe kidney damage GFR 15-29 Stage 5: Severe kidney damage GFR <15 ESRD - chronic treatment by dialysis or transplant Otheron 03-26-2020 Interpretation and review of laboratory results Abnormal [place] SPECIMEN REJECTIONon 021 Ordered Test CDP [place] Reason for Rejection Unable to perform testing: Specimen clotted. [place] Specimen source Nom (Unsp spec) .BLOOD [place] - NOT REPORTED [place] Urinalysis, reflex to micros copicon 03-26-2020 Bilirubin Urine Negative NEGATIVE [place] Color, UA YELLOW YELLOW [place] Glucose, Ur Negative NEGATIVE [place] Ketones Ql (U) Negative NEGATIVE [place] Leukocyte esterase Test strip Ql (U) Negative NEGATIVE [place] Nitrite, Urine Negative NEGATIVE [place] pH, UA 5.5 [place] Protein (U) [Mass/Vol] Negative NEGATIVE Me [place] Specific [place], UA 1.010 [place], [place] Turbidity UA CLEAR CLEAR [place] Urinalysis Comments NOT REPORTED [place] Urine Hgb Negative NEGATIVE [place] Urobilinogen, Urine Normal Normal [place] CBC auto differentialon 08-07 Basophils (Bld) [#/Vol] 0.04 10*3/uL [place] Basophils/100 WBC (Bld) 1 % 0 - 2 % [place] Differential Type NOT REPORTED [place] Eosinophils (Bld) [#/Vol] 0.10 10*3/uL [place] Eosinophils/100 WBC (Bld) 1 % 1 - 4 % [place] Erythrocyte distribution width (RBC) [Ratio] 13.0 % 11.8 - 14.4 % [place] Hematocrit (Bld) [Volume fraction] 35.2 % Low 36.3 - 47.1 % [place] Hemoglobin (Bld) [Mass/Vol] 11.7 g/dL Low 11.9 - 15.1 g/dL [place] Immature granulocytes (Bld) [#/Vol] 10*3/uL [place] Immature granulocytes (Bld) [#/Vol] 0 % 0 [place] Interpretation and review of laboratory results Abnormal [place] Lymphocytes (Bld) [#/Vol] 1.87 10*3/uL [place] Lymphocytes/100 WBC (Bld) 22 % Low 24 - 43 % [place] MCH (RBC) [Entitic mass] 32.5 pg 25.2 - 33.5 pg [place] MCHC (RBC) [Mass/Vol] 33.2 g/dL 28.4 - 34.8 g/dL [place] MCV (RBC) [Entitic vol] 97.8 fL 82.6 - 102.9 fL [place] Monocytes (Bld) [#/Vol] 0.86 10*3/uL [place] Monocytes/100 WBC (Bld) 10 % 3 - 12 % [place] Platelet mean volume (Bld) [Entitic vol] 9.8 fL 8.1 - 13.5 fL [place] Platelets (Bld) [#/Vol] NOT REPORTED [place] Platelets (Bld) [#/Vol] 178 10*3/uL [place] RBC (Bld) [#/Vol] 3.60 10*6/uL Low 3.95 - 5.11 m/uL [place] RBC morphology finding Nom (Bld) NOT REPORTED [place] Segmented neutrophils/100 WBC (Bld) 66 % High 36 - 65 % [place] Segs Absolute 5.53 [place] WBC (Bld) [#/Vol] 0.0 10*3/uL 0.0 per 100 WBC [place] WBC (Bld) [#/Vol] 8.4 10*3/uL [place] WBC Morphology NOT REPORTED [place] Lipaseon 08-25-2019 Lipase [Catalytic activity/Vol] 42 U/L 13 - 60 U/L [place] CBC auto differentialon 08-07 Basophils (Bld) [#/Vol] 0.04 10*3/uL [place] Basophils/100 WBC (Bld) 1 % 0 - 2 % [place] Differential Type NOT REPORTED [place] Eosinophils (Bld) [#/Vol] 0.08 10*3/uL [place] Eosinophils/100 WBC (Bld) 1 % 1 - 4 % [place] Erythrocyte distribution width (RBC) [Ratio] 12.9 % 11.8 - 14.4 % [place] Hematocrit (Bld) [Volume fraction] 35.9 % Low 36.3 - 47.1 % [place] Hemoglobin (Bld) [Mass/Vol] 11.9 g/dL 11.9 - 15.1 g/dL [place] Immature granulocytes (Bld) [#/Vol] 0 % 0 [place] Immature granulocytes (Bld) [#/Vol] 0.03 10*3/uL [place] Interpretation and review of laboratory results Abnormal [place] Lymphocytes (Bld) [#/Vol] 1.79 10*3/uL [place] Lymphocytes/100 WBC (Bld) 22 % Low 24 - 43 % [place] MCH (RBC) [Entitic mass] 32.3 pg 25.2 - 33.5 pg [place] MCHC (RBC) [Mass/Vol] 33.1 g/dL 28.4 - 34.8 g/dL [place] MCV (RBC) [Entitic vol] 97.6 fL 82.6 - 102.9 fL [place] Monocytes (Bld) [#/Vol] 0.75 10*3/uL [place] Monocytes/100 WBC (Bld) 9 % 3 - 12 % [place] Platelet mean volume (Bld) [Entitic vol] 10.1 fL 8.1 - 13.5 fL [place] Platelets (Bld) [#/Vol] 176 10*3/uL [place] Platelets (Bld) [#/Vol] NOT REPORTED [place] RBC (Bld) [#/Vol] 3.68 10*6/uL Low 3.95 - 5.11 m/uL [place] RBC morphology finding Nom (Bld) NOT REPORTED [place] Segmented neutrophils/100 WBC (Bld) 67 % High 36 - 65 % [place] Segs Absolute 5.61 [place] WBC (Bld) [#/Vol] 0.0 10*3/uL 0.0 per 100 WBC [place] WBC (Bld) [#/Vol] 8.3 10*3/uL [place] WBC Morphology NOT REPORTED [place] Lipaseon 08-24-2019 Interpretation and review of laboratory results Abnormal [place] Lipase [Catalytic activity/Vol] 69 U/L High 13 - 60 U/L [place] CBC auto differentialon 08-07 Basophils (Bld) [#/Vol] 0.05 10*3/uL [place] Basophils/100 WBC (Bld) 1 % 0 - 2 % [place] Differential Type NOT REPORTED [place] Eosinophils (Bld) [#/Vol] 0.13 10*3/uL [place] Eosinophils/100 WBC (Bld) 2 % 1 - 4 % [place] Erythrocyte distribution width (RBC) [Ratio] 13.2 % 11.8 - 14.4 % [place] Hematocrit (Bld) [Volume fraction] 36.7 % 36.3 - 47.1 % [place] Hemoglobin (Bld) [Mass/Vol] 11.8 g/dL Low 11.9 - 15.1 g/dL [place] Immature granulocytes (Bld) [#/Vol] 0 % 0 [place] Immature granulocytes (Bld) [#/Vol] 10*3/uL [place] Interpretation and review of laboratory results Abnormal [place] Lymphocytes (Bld) [#/Vol] 2.39 10*3/uL [place] Lymphocytes/100 WBC (Bld) 28 % 24 - 43 % [place] MCH (RBC) [Entitic mass] 32.1 pg 25.2 - 33.5 pg [place] MCHC (RBC) [Mass/Vol] 32.2 g/dL 28.4 - 34.8 g/dL [place] MCV (RBC) [Entitic vol] 99.7 fL 82.6 - 102.9 fL [place] Monocytes (Bld) [#/Vol] 0.77 10*3/uL [place] Monocytes/100 WBC (Bld) 9 % 3 - 12 % [place] Platelet mean volume (Bld) [Entitic vol] 10.1 fL 8.1 - 13.5 fL [place] Platelets (Bld) [#/Vol] 174 10*3/uL [place] Platelets (Bld) [#/Vol] NOT REPORTED [place] RBC (Bld) [#/Vol] 3.68 10*6/uL Low 3.95 - 5.11 m/uL [place] RBC morphology finding Nom (Bld) NOT REPORTED [place] Segmented neutrophils/100 WBC (Bld) 60 % 36 - 65 % [place] Segs Absolute 5.22 [place] WBC (Bld) [#/Vol] 0.0 10*3/uL 0.0 per 100 WBC [place] WBC (Bld) [#/Vol] 8.6 10*3/uL [place] WBC Morphology NOT REPORTED [place] Comprehensive metabolic pane nimesh 08-23-2019 Albumin [Mass/Vol] 3.4 g/dL Low 3.5 - 5.2 g/dL [place] Albumin/Globulin [Mass ratio] 1.7 {ratio} [place] ALP [Catalytic activity/Vol] 102 U/L 35 - 104 U/L [place] ALT [Catalytic activity/Vol] 34 U/L High 5 - 33 U/L [place] Anion gap [Moles/Vol] 7 mmol/L Low 9 - 17 mmol/L [place] AST [Catalytic activity/Vol] 95 U/L High <32 [place] Bilirubin Ql (U) 0.46 mg/dL 0.3 - 1.2 mg/dL [place] Bun/Cre Ratio 11 [place] Calcium [Mass/Vol] 8.4 mg/dL Low 8.6 - 10. 4 mg/dL [place] Chloride [Moles/Vol] 109 mmol/L High 98 - 10 7 mmol/L [place] CO2 [Moles/Vol] 22 mmol/L 20 - 31 mmol/L [place] Creatinine [Mass/Vol] 0.66 mg/dL 0.5 - 0.9 mg/dL [place] GFR >60 >60 mL/min [place] GFR Non- >60 >60 mL/min [place] Glucose [Mass/Vol] 89 mg/dL 70 - 99 mg/dL [place] Potassium [Moles/Vol] 4.3 mmol/L 3.7 - 5.3 mmol/L [place] Protein [Mass/Vol] 5.4 g/dL Low 6.4 - 8.3 g/dL [place] Sodium [Moles/Vol] 138 mmol/L 135 - 144 mmol/L [place] Urea nitrogen [Mass/Vol] 7 mg/dL 6 - 20 mg/dL [place] Lipaseon 08-23-2019 Lipase [Catalytic activity/Vol] 96 U/L High 13 - 60 U/L [place] Metabolic Panelon 08-23-2019 GFR/1.73 sq M predicted among non-blacks MDRD (S/P/Bld) [Vol rate/Area] [place] Comment on above: Stage 1: Some [...] body mass. Additional eGFR calculator available at: http://www.[employer]/multiple_crcl_2012.htm Otheron 08-23-2019 Interpretation and review of laboratory results Abnormal [place] CBC Auto Differentialon 08-07 Basophils (Bld) [#/Vol] 0.06 10*3/uL [place] Basophils/100 WBC (Bld) 1 % 0 - 2 % [place] Differential Type NOT REPORTED [place] Eosinophils (Bld) [#/Vol] 0.11 10*3/uL [place] Eosinophils/100 WBC (Bld) 1 % 1 - 4 % [place] Erythrocyte distribution width (RBC) [Ratio] 13.2 % 11.8 - 14.4 % [place] Hematocrit (Bld) [Volume fraction] 41.8 % 36.3 - 47.1 % [place] Hemoglobin (Bld) [Mass/Vol] 13.7 g/dL 11.9 - 15.1 g/dL [place] Immature granulocytes (Bld) [#/Vol] 0.03 10*3/uL [place] Immature granulocytes (Bld) [#/Vol] 0 % 0 [place] Interpretation and review of laboratory results Abnormal [place] Lymphocytes (Bld) [#/Vol] 2.23 10*3/uL [place] Lymphocytes/100 WBC (Bld) 24 % 24 - 43 % [place] MCH (RBC) [Entitic mass] 32.6 pg 25.2 - 33.5 pg [place] MCHC (RBC) [Mass/Vol] 32.8 g/dL 28.4 - 34.8 g/dL [place] MCV (RBC) [Entitic vol] 99.5 fL 82.6 - 102.9 fL [place] Monocytes (Bld) [#/Vol] 0.72 10*3/uL [place] Monocytes/100 WBC (Bld) 8 % 3 - 12 % [place] Platelet mean volume (Bld) [Entitic vol] 10.0 fL 8.1 - 13.5 fL [place] Platelets (Bld) [#/Vol] NOT REPORTED [place] Platelets (Bld) [#/Vol] 213 10*3/uL [place] RBC (Bld) [#/Vol] 4.20 10*6/uL 3.95 - 5.11 m/uL [place] RBC morphology finding Nom (Bld) NOT REPORTED [place] Segmented neutrophils/100 WBC (Bld) 66 % High 36 - 65 % [place] Segs Absolute 6.22 [place] WBC (Bld) [#/Vol] 0.0 10*3/uL 0.0 per 100 WBC [place] WBC (Bld) [#/Vol] 9.4 10*3/uL [place] WBC Morphology NOT REPORTED [place], [place] Comprehensive Metabolic Pane nimesh 08-22-2019 Albumin [Mass/Vol] 4.1 g/dL 3.5 - 5.2 g/dL [place] Albumin/Globulin [Mass ratio] 1.6 {ratio} [place] ALP [Catalytic activity/Vol] 109 U/L High 35 - 104 U/L [place] ALT [Catalytic activity/Vol] 13 U/L 5 - 33 U/L [place] Anion gap [Moles/Vol] 9 mmol/L 9 - 17 mmol/L [place] AST [Catalytic activity/Vol] 22 U/L <32 [place] Bilirubin Ql (U) <0.10 Low 0.3 - 1.2 mg/dL [place] Bun/Cre Ratio 13 [place] Calcium [Mass/Vol] 9.2 mg/dL 8.6 - 10. 4 mg/dL [place] Chloride [Moles/Vol] 103 mmol/L 98 - 10 7 mmol/L [place] CO2 [Moles/Vol] 24 mmol/L 20 - 31 mmol/L [place] Creatinine [Mass/Vol] 0.63 mg/dL 0.5 - 0.9 mg/dL [place] GFR >60 >60 mL/min [place] GFR Non- >60 >60 mL/min [place] Glucose [Mass/Vol] 92 mg/dL 70 - 99 mg/dL [place] Interpretation and review of laboratory results Abnormal [place] Potassium [Moles/Vol] 3.8 mmol/L 3.7 - 5.3 mmol/L [place] Protein [Mass/Vol] 6.7 g/dL 6.4 - 8.3 g/dL [place] Sodium [Moles/Vol] 136 mmol/L 135 - 144 mmol/L [place] Urea nitrogen [Mass/Vol] 8 mg/dL 6 - 20 mg/dL [place] Lactic Acid, Plasmaon 2019 Lactate [Moles/Vol] 1.5 mmol/L 0.5 - 2. 2 mmol/L [place] Lactic Acid, Whole Blood NOT REPORTED 0.7 - 2.1 mmol/L [place] Lipaseon 08-22-2019 Interpretation and review of laboratory results Abnormal [place] Lipase [Catalytic activity/Vol] 255 U/L Critically high 13 - 60 U/L [place] Metabolic Panelon 08-22-2019 GFR/1.73 sq M predicted among non-blacks MDRD (S/P/Bld) [Vol rate/Area] [place] Comment on above: Average GFR for 50-5 9 years old: 93 mL/min/1.73sq m Chronic Kidney Disease: <60 mL/min/1.73sq m Kidney failure: <15 mL/min/1.73sq m eGFR calculated using average adult body mass. Additional eGFR calculator available at: [email or web address] Stage 1: Some kidney damage normal GFR Stage 2: Mild kidney damage GFR 60-89 Stage 3: Moderate kidney damage GFR 30-59 Stage 4: Severe kidney damage GFR 15-29 Stage 5: Severe kidney damage GFR <15 ESRD - chronic treatment by dialysis or transplant Urinalysis with Microscopico n 08-22-2019 Amorphous, UA NOT REPORTED None [facility], [place] Bacteria, UA NOT REPORTED None [place], [place] Bilirubin Urine Negative NEGATIVE [place] Casts UA NOT REPORTED /LPF [place] Color, UA YELLOW YELLOW [place] Crystals, UA NOT REPORTED None /HPF [place] Epithelial Cells UA 2 TO 5 [place] Glucose, Ur Negative NEGATIVE [place] Interpretation and review of laboratory results Abnormal [place] Ketones Ql (U) Negative NEGATIVE [place] Leukocyte esterase Test strip Ql (U) Negative NEGATIVE [place] Mucus, UA NOT REPORTED None [place] Nitrite, Urine Negative NEGATIVE [place] Other Observations UA NOT REPORTED NOT REQ. M [place] pH, UA 6.0 [place] Protein (U) [Mass/Vol] Negative NEGATIVE [place] RBC (U) [#/Vol] None [facility] [place] Renal Epithelial, UA NOT REPORTED 0 /HPF [place] Specific [place], UA <1.005 [place], [place] Trichomonas, UA NOT REPORTED None [facility] [place] Turbidity UA CLEAR CLEAR [place] Urinalysis Comments NOT REPORTED [place] Urine Hgb Negative NEGATIVE [place] Urobilinogen, Urine Normal Normal [place] WBC, UA None [place] Yeast, UA NOT REPORTED None [place] - [place] CBC WITH AUTO DIFFERENTIALon 03-04-2018 Basophils Auto #/vol (Bld) 0.07 10*3/uL Invalid Interpretation Code [facility] Basophils/100 WBC Auto (Bld) 0.7 % Invalid Interpretation Code [facility] Eosinophils Auto #/vol (Bld) 0.09 10*3/uL Invalid Interpretation Code [facility] Eosinophils/100 WBC Auto (Bld) 0.9 % Invalid Interpretation Code [facility] Erythrocyte distribution width Auto Entitic volume (RBC) 12.8 % Invalid Interpretation Code 11.6 - 14.8 % [facility] Hematocrit Auto Volume Fraction (Bld) 45.0 % Invalid Interpretation Code 36 - 46 % [facility] Hemoglobin mass conc (Bld) 15.4 g/dL Invalid Interpretation Code 12 - 16 g/dL [facility] Immature granulocytes #/vol (Bld) 0.03 10*3/uL Invalid Interpretation Code [facility] Immature granulocytes/100 WBC (Bld) 0.30 % Invalid Interpretation Code [facility] Comment on above: The IG parameter is the percentage of metamyelocytes, myelocytes, and promyelocytes. Interpretation and review of laboratory results Abnormal Invalid Interpretation Code [facility] Lymphocytes Auto #/vol (Bld) 2.22 10*3/uL Invalid Interpretation Code [facility] Lymphocytes/100 WBC Auto (Bld) 21.0 % Invalid Interpretation Code [facility] MCH Auto Entitic mass (RBC) 33.6 pg Invalid Interpretation Code 26 - 34 pg [facility] MCHC Auto mass conc (RBC) 34.2 g/dL Invalid Interpretation Code 31 - 37 g/dL [facility] MCV Auto Entitic volume (RBC) 98.0 fL Invalid Interpretation Code 80 - 100 fL [facility] Monocytes Auto #/vol (Bld) 0.82 10*3/uL Invalid Interpretation Code [facility] Monocytes/100 WBC Auto (Bld) 7.8 % Invalid Interpretation Code [facility] Neutrophils Auto #/vol (Bld) 7.33 10*3/uL High [facility] Neutrophils/100 WBC Auto (Bld) 69.3 % Invalid Interpretation Code [facility] Nucleated RBC #/vol (Bld) 0.00 10*3/uL Invalid Interpretation Code [facility] Nucleated RBC/100 WBC Ratio (Bld) 0.0 % Invalid Interpretation Code [facility] Platelet mean volume Auto Entitic volume (Bld) 10.1 fL Invalid Interpretation Code 9 - 15.5 fL [facility] Platelets Auto #/vol (Bld) 254 10*3/uL Invalid Interpretation Code [facility] RBC Auto #/vol (Bld) 4.59 10*6/uL Invalid Interpretation Code [facility] WBC Auto #/vol (Bld) 10.56 10*3/uL Invalid Interpretation Code [facility] Chem 7on 03-04-2018 Anion gap 3 molar conc 15 mmol/L Invalid Interpretation Code 10 - 20 mmol/L [facility] Chloride molar conc 103 mmol/L Invalid Interpretation Code 98 - 108 mmol/L [facility] Creatinine mass conc 0.85 mg/dL Invalid Interpretation Code 0.4 - 1.1 mg/dL [facility] GFR/1.73 sq M predicted among non-blacks MDRD vol rate/area (S/P/Bld) The eGFR should be used for monitoring renal function only and not for medication dosing. Invalid Interpretation Code [facility] GFR/1.73 sq M.predicted CKD-EPI vol rate/area (S/P/Bld) 81 Invalid Interpretation Code >=60 mL/min/1.7 3 m2 [facility] Glucose mass conc 92 mg/dL Invalid Interpretation Code 65 - 99 mg/dL [facility] HCO3 molar conc 25 mmol/L Invalid Interpretation Code 21 - 32 mmol/L [facility] Potassium molar conc 4.4 mmol/L Invalid Interpretation Code 3.5 - 5.1 mmol/L [facility] Sodium molar conc 139 mmol/L Invalid Interpretation Code 135 - 145 mmol/L [facility] Urea nitrogen mass conc 7 mg/dL Low 8 - 25 mg/dL [facility] Urea nitrogen/Creatinine mass ratio 8.2 mg/mg Low [facility] Hepatic Function Panel (LFT) on 03-04-2018 Albumin mass conc 4.5 g/dL Invalid Interpretation Code 3.2 - 5.2 g/dL [facility] ALP enzyme act/vol 97 U/L Invalid Interpretation Code 40 - 150 U/L [facility] ALT enzyme act/vol 9 U/L Invalid Interpretation Code 0 - 40 U/L [facility] AST enzyme act/vol 15 U/L Invalid Interpretation Code 0 - 45 U/L [facility] Bilirubin mass conc mg/dL Invalid Interpretation Code 0 - 1.3 mg/dL [facility] Bilirubin.conjugated mass conc mg/dL Invalid Interpretation Code 0 - 0.4 mg/dL [facility] Interpretation and review of laboratory results Normal Invalid Interpretation Code [facility] Protein mass conc 7.2 g/dL Invalid Interpretation Code 6 - 8 g/dL [facility] Lipaseon 03-04-2018 Lipase enzyme act/vol 179 U/L High 15 - 6 5 U/L [facility] Otheron 03-04-2018 Extra Tube Hold for add-ons. Invalid Interpretation Code [facility] Comment on above: Auto resulted. Interpretation and review of laboratory results Abnormal Invalid Interpretation Code [facility] URINALYSISon 03-04-2018 Bacteria Auto Ql (U) Rare Abnormal None Se en /hpf [facility] Bilirubin Ql (U) Negative Invalid Interpretation Code Negative [facility] Clarity Refractometry automated Nom (U) Clear Invalid Interpretation Code Clear [facility] Color Auto Nom (U) Colorless Invalid Interpretation Code Colorless, Yellow [facility] Epithelial cells.squamous Auto #/area (Urine sed) 1 Invalid Interpretation Code [facility] Glucose Automated test strip mass conc (U) Negative Invalid Interpretation Code Negative mg/dL [facility] Hemoglobin Automated test strip Ql (U) Negative Invalid Interpretation Code Negative [facility] Interpretation and review of laboratory results Abnormal Invalid Interpretation Code [facility] Ketones mass conc (U) Negative Invalid Interpretation Code Negative mg/dL [facility] Leukocyte esterase Automated test strip Ql (U) Negative Invalid Interpretation Code Negative [facility] Nitrite Automated test strip Ql (U) Negative Invalid Interpretation Code Negative [facility] pH Test strip (U) 7.0 [pH] Invalid Interpretation Code [facility] Protein mass conc (U) Negative Invalid Interpretation Code Negative mg/dL [facility] RBC Auto #/area (Urine sed) 2 Invalid Interpretation Code [facility] Specific gravity Automated test strip Relative Density (U) 1.004 Low [facility] Urobilinogen Test strip Qn (U) <2.0 Invalid Interpretation Code <2.0 mg/dL [facility] WBC Auto #/area (Urine sed) <1 Invalid Interpretation Code [facility] Microscopic examinat ion is performed on all urinalysis samples and only positive findings are reported. The test for blood on the chemical analytic portion of urinalysis may also be positive due to hemoglobinuria and myoglobinuria and if red blood cells are present they are quantified by microscopic examination. Invalid Interpretation Code [facility] BMPon 08-24-2017 Anion gap 18 mmol/L Invalid Interpretation Code 10 - 20 mmol/L [facility] Bicarbonate (HCO3) 27 mmol/L Invalid Interpretation Code 21 - 32 mmol/L [facility] BUN/Creatinine Ratio 10.1 mg/mg Invalid Interpretation Code 10.0 - 20.0 [facility] Calcium 10.6 mg/dL High 8.4 - 10.2 mg/dL [facility] Chloride 101 mmol/L Invalid Interpretation Code 98 - 108 mmol/L [facility] Creatinine 0.69 mg/dL Invalid Interpretation Code 0.4 - 1.1 mg/dL [facility] eGFR (non-black) 103 mL/min/{1.73_m2} Invalid Interpretation Code >=60 [facility] eGFR (non-black) The eGFR should be u sed for monitoring renal function only and not for medication dosing. Invalid Interpretation Code [facility] Glucose mass conc 105 mg/dL High 65 - 99 mg/dL [facility] Interpretation and review of laboratory results Abnormal Invalid Interpretation Code [facility] Potassium molar conc 4.1 mmol/L Invalid Interpretation Code 3.5 - 5.1 mmol/L [facility] Sodium 142 mmol/L Invalid Interpretation Code 135 - 145 mmol/L [facility] Urea nitrogen 7 mg/dL Low 8 - 25 mg/dL [facility] CBC Auto Differentialon 08-07 Basophils Auto #/vol (Bld) 0.08 K/mcL Invalid Interpretation Code 0.00 - 0.30 [facility] Basophils/100 WBC Auto (Bld) 0.6 % Invalid Interpretation Code [facility] Eosinophils 0.05 K/mcL Invalid Interpretation Code 0.00 - 0.50 [facility] Eosinophils/100 leukocytes 0.4 % Invalid Interpretation Code [facility] Erythrocyte distribution width Auto Entitic volume (RBC) 12.2 % Invalid Interpretation Code 11.6 - 14.8 % [facility] Erythrocytes (RBC) 4.60 M/mcL Invalid Interpretation Code 4.00 - 5.20 [facility] Hematocrit (HCT) 43.4 % Invalid Interpretation Code 36 - 46 % [facility] Hemoglobin mass conc (Bld) 15.2 g/dL Invalid Interpretation Code 12 - 16 g/dL [facility] Immature granulocytes #/vol (Bld) 0.05 K/mcL Invalid Interpretation Code 0.00 - 0.30 [facility] Immature granulocytes/100 WBC (Bld) 0.40 % Invalid Interpretation Code [facility] Comment on above: The IG parameter is the percentage of metamyelocytes, myelocytes, and promyelocytes. Lymphocytes 2.40 K/mcL Invalid Interpretation Code 0.90 - 4.00 [facility] Lymphocytes/100 leukocytes 18.1 % Invalid Interpretation Code [facility] MCH 33.0 pg Invalid Interpretation Code 26 - 34 pg [facility] MCHC mass conc (RBC) 35.0 g/dL Invalid Interpretation Code 31 - 37 g/dL [facility] MCV 94.3 fL Invalid Interpretation Code 80 - 100 fL [facility] Monocytes 0.85 K/mcL Invalid Interpretation Code 0.30 - 0.90 [facility] Monocytes/100 leukocytes 6.4 % Invalid Interpretation Code [facility] Neutrophils 9.81 K/mcL High 1.70 - 7.00 [facility] Neutrophils/100 WBC Auto (Bld) 74.1 % Invalid Interpretation Code [facility] Nucleated erythrocytes 0.00 K/mcL Invalid Interpretation Code 0.00 - 0.00 [facility] Nucleated erythrocytes/100 erythrocytes 0.0 % Invalid Interpretation Code [facility] Platelet mean volume (PMV) 10.0 fL Invalid Interpretation Code 9 - 15.5 fL [facility] Platelets 242 K/mcL Invalid Interpretation Code 150 - 400 [facility] WBC (Leukocytes) 13.24 K/mcL High 4.50 - 11.00 [facility] CBC w/ Diffon 08-24-2017 Creatinine The following orders were created for panel order CBC w/ Diff. Procedure Abnormality Status --------- ------ CBC Auto Differential[[id number]] Abnormal Final result Please view results for these tests on the individual orders. Invalid Interpretation Code [facility] CT ABDOMEN PELVIS WITH IV CO [...] and demonstrated a prominent signal loss on [id number] images on MRI performed 09/06/2014, compatible with [...] The ovaries probably remain.5. Small left adrenal adenoma.S/galinaWorkstakale n ID: [id number] by: PONCHO GALAVIZ on ThuAug 24, 2017 3:53:38 PM EDTTranscribed by: RON KELLOGG on ThuAug 24, 2017 4:00:38 PM EDTFinalized by: PONCHO GALAVIZ on ThuAug 24, 2017 4:03:34 PM EDT [facility] Comment on above: Order Comment: Reaso n for exam?:abd painInjury/Trauma or Illness?:Illness/OtherHow long have you had these symptoms (acute/chronic)?:ChronicType of Exam?:Subsequent/Follow-upAdditional signs and symptoms?:chronic pancreatitis CT Abdomen Pelvis With IV Co ntrast Onlyon 08-24-2017 CT Abdomen Pelvis With IV Contrast Only [facility] 4:06 PM EDT EXAMINATION: CT [...] and demonstrated a prominent signal loss on [id number] images on MRI performed 09/06/2014, compatible with [...] probably remain. 5. Small left adrenal adenoma. [employer] Workstation ID: [id number] Invalid Interpretation Code [employer] [facility] CT Abdomen Pelvis With IV [...] and demonstrated a prominent signal loss on [id number] images on MRI performed 09/06/2014, compatible with [...] suspicious focal osseous lesions. Invalid Interpretation Code [employer] [facility] CT Abdomen Pelvis With IV [...] probably remain. 5. Small left adrenal adenoma. [employer] Work[employer] ID: [id number] Invalid Interpretation Code [employer] [facility] Hepatic Function Panel (LFT) on 08-24-2017 Alanine aminotransferase (ALT) 14 U/L Invalid Interpretation Code 0 - 40 U/L [facility] Albumin 4.7 g/dL Invalid Interpretation Code 3.2 - 5.2 g/dL [facility] Alkaline phosphatase (ALP) 91 U/L Invalid Interpretation Code 40 - 150 U/L [facility] Aspartate aminotransferase (AST) 17 U/L Invalid Interpretation Code 0 - 45 U/L [facility] Bilirubin (conjugated) mg/dL Invalid Interpretation Code 0 - 0.4 mg/dL [facility] Bilirubin (total) mg/dL Invalid Interpretation Code 0 - 1.3 mg/dL [facility] Interpretation and review of laboratory results Normal Invalid Interpretation Code [facility] Protein 7.4 g/dL Invalid Interpretation Code 6 - 8 g/dL [facility] Lactic Acid, Plasmaon 2017 Lactate 1.0 mmol/L Invalid Interpretation Code 0.6 - 2 mmol/L [facility] Light Blue Topon 08-24-2017 Extra Tube Hold for add-ons. Invalid Interpretation Code [facility] Comment on above: Auto resulted. Lipaseon 08-24-2017 Lipase 51 U/L Invalid Interpretation Code 15 - 65 U/L [facility] Aztec Topon 08-24-2017 Aztec Top Invalid Interpretation Code [facility] Samson Drawon 08-24-2017 Creatinine The following orders were created for panel order Samson Draw. Procedure Abnormality Status --------- ------ Gold Top[[id number]] Final result Light Blue Top[[id number]] Final result Aztec Top[[id number]] Final result Please view results for these tests on the individual orders. Invalid Interpretation Code [facility] Urinalysison 08-24-2017 Bilirubin Ql (U) Negative Invalid Interpretation Code Negative [facility] Blood, Urine Negative Invalid Interpretation Code Negative [facility] Interpretation and review of laboratory results Abnormal Invalid Interpretation Code [facility] Nitrite, Urine Negative Invalid Interpretation Code Negative [facility] Squamous Epithelial 5 /hpf High 0 - 4 [facility] Transitional Epithelial <1 Invalid Interpretation Code 0 - 1 /hpf [facility] Urine, bacteria in sediment Rare Abnormal None Seen /hpf [facility] Urine, clarity Hazy Abnormal Clear [facility] Urine, color Yellow Invalid Interpretation Code Colorless, Yellow [facility] Urine, erythrocytes 1 /hpf Invalid Interpretation Code 0 - 3 [facility] Urine, glucose presence Negative Invalid Interpretation Code Negative mg/dL [facility] Urine, ketones presence Negative Invalid Interpretation Code Negative mg/dL [facility] Urine, leukocyte esterase presence Negative Invalid Interpretation Code Negative [facility] Urine, pH 7.0 [pH] Invalid Interpretation Code 5.0 - 7.0 [facility] Urine, protein Negative Invalid Interpretation Code Negative mg/dL [facility] Urine, specific gravity 1.006 1 Invalid Interpretation Code 1.005 - 1.025 [facility] Urine, urobilinogen <2.0 Invalid Interpretation Code <2.0 mg/dL [facility] WBCs, Urine 1 /hpf Invalid Interpretation Code 0 - 5 [facility] Urinalysis Microscopic examinat ion is performed on all urinalysis samples and only positive findings are reported. The test for blood on the chemical analytic portion of urinalysis may also be positive due to hemoglobinuria and myoglobinuria and if red blood cells are present they are quantified by microscopic examination. Invalid Interpretation Code [facility] BMPon 06-09-2017 Anion gap 18 mmol/L Invalid Interpretation Code 10 - 20 mmol/L [facility] Bicarbonate (HCO3) 21 mmol/L Invalid Interpretation Code 21 - 32 mmol/L [facility] BUN/Creatinine Ratio 11.0 mg/mg Invalid Interpretation Code 10.0 - 20.0 [facility] Calcium 10.2 mg/dL Invalid Interpretation Code 8.4 - 10.2 mg/dL [facility] Chloride 102 mmol/L Invalid Interpretation Code 98 - 108 mmol/L [facility] Creatinine 0.73 mg/dL Invalid Interpretation Code 0.4 - 1.1 mg/dL [facility] eGFR (non-black) The eGFR should be u sed for monitoring renal function only and not for medication dosing. Invalid Interpretation Code [facility] eGFR (non-black) 98 mL/min/{1.73_m2} Invalid Interpretation Code >=60 [facility] Glucose 80 mg/dL Invalid Interpretation Code 65 - 99 mg/dL [facility] Potassium 4.3 mmol/L Invalid Interpretation Code 3.5 - 5.1 mmol/L [facility] Sodium 137 mmol/L Invalid Interpretation Code 135 - 145 mmol/L [facility] Urea nitrogen 8 mg/dL Invalid Interpretation Code 8 - 25 mg/dL [facility] CBC Auto Differentialon Basophils 0.07 K/mcL Invalid Interpretation Code 0.00 - 0.30 [facility] Basophils/100 leukocytes 0.7 % Invalid Interpretation Code [facility] Eosinophils 0.10 K/mcL Invalid Interpretation Code 0.00 - 0.50 [facility] Eosinophils/100 leukocytes 1.0 % Invalid Interpretation Code [facility] Erythrocytes (RBC) 4.75 M/mcL Invalid Interpretation Code 4.00 - 5.20 [facility] Erythrocytes (RBC) 0.00 K/mcL Invalid Interpretation Code 0.00 - 0.00 [facility] Hematocrit (HCT) 46.1 % High 36 - 46 % [facility] Hemoglobin (HGB) 16.1 g/dL High 12 - 16 g/dL [facility] IG Absolute 0.02 K/mcL Invalid Interpretation Code 0.00 - 0.30 [facility] IG Percent 0.20 % Invalid Interpretation Code [facility] Lymphocytes 1.75 K/mcL Invalid Interpretation Code 0.90 - 4.00 [facility] Lymphocytes/100 leukocytes 17.9 % Invalid Interpretation Code [facility] MCH 33.9 pg Invalid Interpretation Code 26 - 34 pg [facility] MCHC 34.9 g/dL Invalid Interpretation Code 31 - 37 g/dL [facility] MCV 97.1 fL Invalid Interpretation Code 80 - 100 fL [facility] Monocytes 0.88 K/mcL Invalid Interpretation Code 0.30 - 0.90 [facility] Monocytes/100 leukocytes 9.0 % Invalid Interpretation Code [facility] Neutrophils 6.98 K/mcL Invalid Interpretation Code 1.70 - 7.00 [facility] Neutrophils/100 leukocytes 71.2 % Invalid Interpretation Code [facility] Nucleated erythrocytes/100 erythrocytes 0.0 % Invalid Interpretation Code [facility] Platelet mean volume (PMV) 10.9 fL Invalid Interpretation Code 9 - 15.5 fL [facility] Platelets 223 K/mcL Invalid Interpretation Code 150 - 400 [facility] RDW-CA 12.8 % Invalid Interpretation Code 11.6 - 14.8 % [facility] WBC (Leukocytes) 9.80 K/mcL Invalid Interpretation Code 4.50 - 11.00 [facility] Interpretation and review of laboratory results Abnormal Invalid Interpretation Code [facility] CBC w/ Diffon 06-09-2017 Creatinine The following orders were created for panel order CBC w/ Diff. Procedure Abnormality Status --------- ------ CBC Auto Differential[[id number]] Abnormal Final result Please view results for these tests on the individual orders. Invalid Interpretation Code [facility] Hepatic Function Panel (LFT) on 06-09-2017 Alanine aminotransferase (ALT) 10 U/L Invalid Interpretation Code 0 - 40 U/L [facility] Albumin 4.4 g/dL Invalid Interpretation Code 3.2 - 5.2 g/dL [facility] Alkaline phosphatase (ALP) 89 U/L Invalid Interpretation Code 40 - 150 U/L [facility] Aspartate aminotransferase (AST) 20 U/L Invalid Interpretation Code 0 - 45 U/L [facility] Bilirubin (conjugated) mg/dL Invalid Interpretation Code 0 - 0.4 mg/dL [facility] Bilirubin (total) mg/dL Invalid Interpretation Code 0 - 1.3 mg/dL [facility] Interpretation and review of laboratory results Normal Invalid Interpretation Code [facility] Protein 7.3 g/dL Invalid Interpretation Code 6 - 8 g/dL [facility] Lipaseon 06-09-2017 Lipase 50 U/L Invalid Interpretation Code 15 - 65 U/L [facility] Samson Drawon 06-09-2017 Creatinine The following orders were created for panel order Samson Draw. Procedure Abnormality Status --------- ------ Urine Container[[id number]] Final result Please view results for these tests on the individual orders. Invalid Interpretation Code [facility] 06-09-2017 Bilirubin, Urine Negative Invalid Interpretation Code Negative [facility] Blood, Urine Negative Invalid Interpretation Code Negative [facility] Calcium Many Abnormal None Seen /hpf [facility] Mucus, Urine Rare Invalid Interpretation Code None Seen, Rare /lpf [facility] Nitrite, Urine Negative Invalid Interpretation Code Negative [facility] RBCs, Urine 1 /hpf Invalid Interpretation Code 0 - 3 [facility] Squamous Epithelial 4 /hpf Invalid Interpretation Code 0 - 4 [facility] Urine, bacteria in sediment None Seen Invalid Interpretation Code None Seen /hpf [facility] Urine, clarity Cloudy Abnormal Clear [facility] Urine, color Yellow Invalid Interpretation Code Colorless, Yellow [facility] Urine, glucose presence Negative Invalid Interpretation Code Negative mg/dL [facility] Urine, ketones presence Trace Abnormal Negative mg/dL [facility] Urine, leukocyte esterase presence Negative Invalid Interpretation Code Negative [facility] Urine, pH 5.0 [pH] Invalid Interpretation Code 5.0 - 7.0 [facility] Urine, protein Negative Invalid Interpretation Code Negative mg/dL [facility] Urine, specific gravity 1.024 1 Invalid Interpretation Code 1.005 - 1.025 [facility] Urine, urobilinogen 2.0 mg/dL Abnormal <2.0 [facility] WBCs, Urine 1 /hpf Invalid Interpretation Code 0 - 5 [facility] Urinalysis Microscopic examinat ion is performed on all urinalysis samples and only positive findings are reported. The test for blood on the chemical analytic portion of urinalysis may also be positive due to hemoglobinuria and myoglobinuria and if red blood cells are present they are quantified by microscopic examination. Invalid Interpretation Code [facility] Urine Containeron 06-09-2017 Urine Container Invalid Interpretation Code [facility] CBCon 05-15-2017 Erythrocytes (RBC) 3.76 M/mcL Low 4.00 - 5.20 [facility] Erythrocytes (RBC) 0.00 K/mcL Invalid Interpretation Code 0.00 - 0.00 [facility] Hematocrit (HCT) 37.1 % Invalid Interpretation Code 36 - 46 % [facility] Hemoglobin (HGB) 12.4 g/dL Invalid Interpretation Code 12 - 16 g/dL [facility] MCH 33.0 pg Invalid Interpretation Code 26 - 34 pg [facility] MCHC 33.4 g/dL Invalid Interpretation Code 31 - 37 g/dL [facility] MCV 98.7 fL Invalid Interpretation Code 80 - 100 fL [facility] Nucleated erythrocytes/100 erythrocytes 0.0 % Invalid Interpretation Code [facility] Platelet mean volume (PMV) 9.9 fL Invalid Interpretation Code 9 - 15.5 fL [facility] Platelets 197 K/mcL Invalid Interpretation Code 150 - 400 [facility] RDW-CA 12.6 % Invalid Interpretation Code 11.6 - 14.8 % [facility] WBC (Leukocytes) 7.55 K/mcL Invalid Interpretation Code 4.50 - 11.00 [facility] Comprehensive Metabolic Pane nimesh 05-15-2017 Alanine aminotransferase (ALT) 9 U/L Invalid Interpretation Code 0 - 40 U/L [facility] Albumin 3.3 g/dL Invalid Interpretation Code 3.2 - 5.2 g/dL [facility] Alkaline phosphatase (ALP) 73 U/L Invalid Interpretation Code 40 - 150 U/L [facility] Anion gap 15 mmol/L Invalid Interpretation Code 10 - 20 mmol/L [facility] Aspartate aminotransferase (AST) 13 U/L Invalid Interpretation Code 0 - 45 U/L [facility] Bicarbonate (HCO3) 23 mmol/L Invalid Interpretation Code 21 - 32 mmol/L [facility] Bilirubin (total) 0.2 mg/dL Invalid Interpretation Code 0 - 1.3 mg/dL [facility] BUN/Creatinine Ratio 9.4 mg/mg Low 10.0 - 20.0 [facility] Calcium 8.4 mg/dL Invalid Interpretation Code 8.4 - 10.2 mg/dL [facility] Chloride 108 mmol/L Invalid Interpretation Code 98 - 108 mmol/L [facility] Creatinine 0.64 mg/dL Invalid Interpretation Code 0.4 - 1.1 mg/dL [facility] eGFR (non-black) The eGFR should be u sed for monitoring renal function only and not for medication dosing. Invalid Interpretation Code [facility] eGFR (non-black) 107 mL/min/{1.73_m2} Invalid Interpretation Code >=60 [facility] Glucose 91 mg/dL Invalid Interpretation Code 65 - 99 mg/dL [facility] Potassium 4.0 mmol/L Invalid Interpretation Code 3.5 - 5.1 mmol/L [facility] Protein 5.3 g/dL Low 6 - 8 g/dL [facility] Sodium 142 mmol/L Invalid Interpretation Code 135 - 145 mmol/L [facility] Urea nitrogen 6 mg/dL Low 8 - 25 mg/dL [facility] Lipaseon 05-15-2017 Interpretation and review of laboratory results Normal Invalid Interpretation Code [facility] Lipase 31 U/L Invalid Interpretation Code 15 - 65 U/L [facility] Lipid Panelon 05-15-2017 Cholesterol 193 mg/dL Invalid Interpretation Code 100 - 199 mg/dL [facility] Cholesterol to HDL Ratio 7.1 {ratio} Invalid Interpretation Code [facility] HDL Cholesterol 27 mg/dL Low 40 - 59 mg/dL [facility] HDL Cholesterol 166 mg/dL Invalid Interpretation Code [facility] Interpretation and review of laboratory results Abnormal Invalid Interpretation Code [facility] LDL Cholesterol 108 mg/dL Invalid Interpretation Code 10 - 130 mg/dL [facility] Triglyceride 291 mg/dL High 30 - 150 mg/dL [facility] BMPon 05-14-2017 Anion gap 18 mmol/L Invalid Interpretation Code 10 - 20 mmol/L [facility] Bicarbonate (HCO3) 25 mmol/L Invalid Interpretation Code 21 - 32 mmol/L [facility] BUN/Creatinine Ratio 11.8 mg/mg Invalid Interpretation Code 10.0 - 20.0 [facility] Calcium 10.7 mg/dL High 8.4 - 10.2 mg/dL [facility] Chloride 102 mmol/L Invalid Interpretation Code 98 - 108 mmol/L [facility] Creatinine 0.68 mg/dL Invalid Interpretation Code 0.4 - 1.1 mg/dL [facility] eGFR (non-black) The eGFR should be u sed for monitoring renal function only and not for medication dosing. Invalid Interpretation Code [facility] eGFR (non-black) 105 mL/min/{1.73_m2} Invalid Interpretation Code >=60 [facility] Glucose 86 mg/dL Invalid Interpretation Code 65 - 99 mg/dL [facility] Potassium 4.0 mmol/L Invalid Interpretation Code 3.5 - 5.1 mmol/L [facility] Sodium 141 mmol/L Invalid Interpretation Code 135 - 145 mmol/L [facility] Urea nitrogen 8 mg/dL Invalid Interpretation Code 8 - 25 mg/dL [facility] CBC Auto Differentialon Basophils 0.09 K/mcL Invalid Interpretation Code 0.00 - 0.30 [facility] Basophils/100 leukocytes 0.8 % Invalid Interpretation Code [facility] Eosinophils 0.08 K/mcL Invalid Interpretation Code 0.00 - 0.50 [facility] Eosinophils/100 leukocytes 0.7 % Invalid Interpretation Code [facility] Erythrocytes (RBC) 0.00 K/mcL Invalid Interpretation Code 0.00 - 0.00 [facility] Erythrocytes (RBC) 4.96 M/mcL Invalid Interpretation Code 4.00 - 5.20 [facility] Hematocrit (HCT) 48.5 % High 36 - 46 % [facility] Hemoglobin (HGB) 16.6 g/dL High 12 - 16 g/dL [facility] IG Absolute 0.04 K/mcL Invalid Interpretation Code 0.00 - 0.30 [facility] IG Percent 0.40 % Invalid Interpretation Code [facility] Interpretation and review of laboratory results Abnormal Invalid Interpretation Code [facility] Lymphocytes 1.89 K/mcL Invalid Interpretation Code 0.90 - 4.00 [facility] Lymphocytes/100 leukocytes 17.7 % Invalid Interpretation Code [facility] MCH 33.5 pg Invalid Interpretation Code 26 - 34 pg [facility] MCHC 34.2 g/dL Invalid Interpretation Code 31 - 37 g/dL [facility] MCV 97.8 fL Invalid Interpretation Code 80 - 100 fL [facility] Monocytes 0.74 K/mcL Invalid Interpretation Code 0.30 - 0.90 [facility] Monocytes/100 leukocytes 6.9 % Invalid Interpretation Code [facility] Neutrophils 7.86 K/mcL High 1.70 - 7.00 [facility] Neutrophils/100 leukocytes 73.5 % Invalid Interpretation Code [facility] Nucleated erythrocytes/100 erythrocytes 0.0 % Invalid Interpretation Code [facility] Platelet mean volume (PMV) 9.8 fL Invalid Interpretation Code 9 - 15.5 fL [facility] Platelets 275 K/mcL Invalid Interpretation Code 150 - 400 [facility] RDW-CA 12.8 % Invalid Interpretation Code 11.6 - 14.8 % [facility] WBC (Leukocytes) 10.70 K/mcL Invalid Interpretation Code 4.50 - 11.00 [facility] CBC w/ Diffon 05-14-2017 Creatinine The following orders were created for panel order CBC w/ Diff. Procedure Abnormality Status --------- ------ CBC Auto Differential[[id number]] Abnormal Final result Please view results for these tests on the individual orders. Invalid Interpretation Code [facility] CT ABDOMEN PELVIS WITH IV CO [...] appendix in the left lower pelvis.Workstation ID: [id number] by: SARAH ANN on ThuMay 14, 2017 4:08:10 PM ESTTranscribed by: SARAH ANN on ThuMay 14, 2017 4:08:10 PM ESTFinalized by: SARAH ANN on ThuMay 14, 2017 4:08:10 PM [...] at L1-L2 and L4-L5. Invalid Interpretation Code [employer] [facility] CT Abdomen Pelvis With IV Contrast Only Interface, Rad In Causes [facility] - 05/14/2017 4:10 PM EST EXAMINATION: CT [...] in the left lower pelvis. Workstation ID: [id number] Invalid Interpretation Code [employer] [facility] CT Abdomen Pelvis With IV [...] in the left lower pelvis. Workstation ID: [id number] Invalid Interpretation Code [employer] [facility] Ruff Topon 05-14-2017 Extra Tube Hold for add-ons. Invalid Interpretation Code [facility] Hepatic Function Panel (LFT) on 05-14-2017 Alanine aminotransferase (ALT) 13 U/L Invalid Interpretation Code 0 - 40 U/L [facility] Albumin 4.8 g/dL Invalid Interpretation Code 3.2 - 5.2 g/dL [facility] Alkaline phosphatase (ALP) 102 U/L Invalid Interpretation Code 40 - 150 U/L [facility] Aspartate aminotransferase (AST) 20 U/L Invalid Interpretation Code 0 - 45 U/L [facility] Bilirubin (conjugated) mg/dL Invalid Interpretation Code 0 - 0.4 mg/dL [facility] Bilirubin (total) 0.2 mg/dL Invalid Interpretation Code 0 - 1.3 mg/dL [facility] Interpretation and review of laboratory results Normal Invalid Interpretation Code [facility] Protein 7.9 g/dL Invalid Interpretation Code 6 - 8 g/dL [facility] Lipaseon 05-14-2017 Lipase 137 U/L High 15 - 65 U/L [facility] Aztec Topon 05-14-2017 Aztec Top Invalid Interpretation Code [facility] Samson Drawon 05-14-2017 Creatinine The following orders were created for panel order Samson Draw. Procedure Abnormality Status --------- ------ Gold Top[[id number]] Final result Light Blue Top[[id number]] Final result Ruff Top[[id number]] Final result Aztec Top[[id number]] Final result Please view results for these tests on the individual orders. Invalid Interpretation Code [facility] 05-14-2017 Bilirubin, Urine Negative Invalid Interpretation Code Negative [facility] Blood, Urine Negative Invalid Interpretation Code Negative [facility] Interpretation and review of laboratory results Abnormal Invalid Interpretation Code [facility] Mucus, Urine Rare Invalid Interpretation Code None Seen, Rare /lpf [facility] Nitrite, Urine Negative Invalid Interpretation Code Negative [facility] RBCs, Urine 2 /hpf Invalid Interpretation Code 0 - 3 [facility] Squamous Epithelial 3 /hpf Invalid Interpretation Code 0 - 4 [facility] Urine, bacteria in sediment Rare Abnormal None Seen /hpf [facility] Urine, clarity Clear Invalid Interpretation Code Clear [facility] Urine, color Yellow Invalid Interpretation Code Colorless, Yellow [facility] Urine, glucose presence Negative Invalid Interpretation Code Negative mg/dL [facility] Urine, ketones presence Negative Invalid Interpretation Code Negative mg/dL [facility] Urine, leukocyte esterase presence Negative Invalid Interpretation Code Negative [facility] Urine, pH 5.0 [pH] Invalid Interpretation Code 5.0 - 7.0 [facility] Urine, protein Negative Invalid Interpretation Code Negative mg/dL [facility] Urine, specific gravity 1.006 1 Invalid Interpretation Code 1.005 - 1.025 [facility] Urine, urobilinogen <2.0 Invalid Interpretation Code <2.0 mg/dL [facility] WBCs, Urine 1 /hpf Invalid Interpretation Code 0 - 5 [facility] Urinalysis Microscopic examinat ion is performed on all urinalysis samples and only positive findings are reported. The test for blood on the chemical analytic portion of urinalysis may also be positive due to hemoglobinuria and myoglobinuria and if red blood cells are present they are quantified by microscopic examination. Invalid Interpretation Code [facility] Vital Signs Date Time Vital Sign Value Performing Clinician Facility 11-17-2024 16:30-0400 Diastolic blood pressure 72 mm[Hg] Josse Romo MD Work Phone: [facility] 11-17-2024 16:30-0400 Heart rate 78 /min Josse Romo MD Work Phone: [facility] 11-17-2024 16:30-0400 Respiratory rate 16 /min Josse Romo MD Work Phone: [facility] 11-17-2024 16:30-0400 SaO2% (BldA) [Mass fraction] 98 % Josse Romo MD Work Phone: [facility] 11-17-2024 16:30-0400 Systolic blood pressure 122 mm[Hg] Josse Romo MD Work Phone: [facility] 11-17-2024 15:21-0400 Body temperature 97.9 [degF] Josse Romo MD Work Phone: [facility] 11-17-2024 14:13-0400 Body height 157.5 cm Josse Romo MD Work Phone: [facility] 11-17-2024 14:13-0400 Body mass index (BMI) [Ratio] 21.95 kg/m2 Josse Romo MD Work Phone: [facility] 11-17-2024 14:13-0400 Body weight 54.43 kg Josse Romo MD Work Phone: [facility] 11-09-2024 07:01-0400 Body temperature 98.29 [degF] Raji Gilliam MD Work Phone: [facility] [employer] 11-09-2024 07:01-0400 Diastolic blood pressure 84 mm[Hg] Raji Gilliam MD Work Phone: [facility] [employer] 11-09-2024 07:01-0400 Heart rate 89 /min Raji Gilliam MD Work Phone: [facility] [employer] 11-09-2024 07:01-0400 Respiratory rate 16 /min Raji Gilliam MD Work Phone: [facility] [employer] 11-09-2024 07:01-0400 SaO2% (BldA) [Mass fraction] 97 % Raji Gilliam MD Work Phone: [facility] [employer] 11-09-2024 07:01-0400 Systolic blood pressure 131 mm[Hg] Raji Gilliam MD Work Phone: [facility] [employer] 11-09-2024 00:25-0400 Body mass index (BMI) [Ratio] 22.09 kg/m2 Raji Gilliam MD Work Phone: [facility] [employer] 11-09-2024 00:25-0400 Body weight 54.8 kg Raji Gilliam MD Work Phone: [facility] [employer] 11-07-2024 10:47-0400 Body height 157.5 cm [facility] 11-02-2024 12:55-0400 Body height 157.5 cm Lindsey Willard APRN.[employer] INTER[employer] Work Phone: [facility] 11-02-2024 12:55-0400 Body mass index (BMI) [Ratio] 22.09 kg/m2 Lindsey Willard [employer] Work Phone: [facility] 11-02-2024 12:55-0400 Body weight 54.8 kg Lindsey Willard [employer] Work Phone: [facility] 11-02-2024 12:55-0400 Diastolic blood pressure 75 mm[Hg] Lindsey Lavern [employer] Work Phone: [facility] 11-02-2024 12:55-0400 Heart rate 92 /min Lindsey Lavern [employer] Work Phone: [facility] 11-02-2024 12:55-0400 SaO2% (BldA) [Mass fraction] 99 % Lindsey Lavern [employer] Work Phone: [facility] 11-02-2024 12:55-0400 Systolic blood pressure 125 mm[Hg] Lindsey Lavern [employer] Work Phone: [facility] 10-28-2024 16:50-0400 Diastolic blood pressure 83 mm[Hg] [facility] 10-28-2024 16:50-0400 Heart rate 81 /min [facility] 10-28-2024 16:50-0400 Respiratory rate 20 /min [facility] 10-28-2024 16:50-0400 SaO2% (BldA) [Mass fraction] 99 % [facility] 10-28-2024 16:50-0400 Systolic blood pressure 135 mm[Hg] [facility] 10-28-2024 14:33-0400 Body height 157.48 cm [facility] 10-28-2024 14:33-0400 Body temperature 98.3 [degF] [facility] 10-28-2024 14:33-0400 Body weight 54.3 kg [facility] 10-19-2024 22:50-0400 Body temperature 97.9 [degF] [facility] 10-19-2024 22:50-0400 Diastolic blood pressure 74 mm[Hg] [facility] 10-19-2024 22:50-0400 Heart rate 81 /min [facility] 10-19-2024 22:50-0400 Respiratory rate 18 /min [facility] 10-19-2024 22:50-0400 SaO2% (BldA) [Mass fraction] 99 % [facility] 10-19-2024 22:50-0400 Systolic blood pressure 140 mm[Hg] [facility] 10-19-2024 16:47-0400 Body height 157.48 cm [facility] 10-19-2024 16:47-0400 Body weight 55.2 kg [facility] 09-27-2024 14:00-0400 Diastolic blood pressure 71 mm[Hg] Tasha Zamora MD Work Phone: [employer] 09-27-2024 14:00-0400 Heart rate 93 /min Tasha Zamora MD Work Phone: [employer] 09-27-2024 14:00-0400 Respiratory rate 17 /min Tasha Zamora MD Work Phone: [employer] 09-27-2024 14:00-0400 SaO2% (BldA) [Mass fraction] 97 % Tasha Zamora MD Work Phone: [employer] 09-27-2024 14:00-0400 Systolic blood pressure 129 mm[Hg] Tasha Zamora MD Work Phone: [employer] 09-27-2024 10:48-0400 Body temperature 99 [degF] Tasha Zamora MD Work Phone: [facility] 09-20-2024 21:30-0400 Diastolic blood pressure 80 mm[Hg] Tasha Zamora MD Work Phone: [facility] 09-20-2024 21:30-0400 Heart rate 77 /min Tasha Zamora MD Work Phone: [facility] 09-20-2024 21:30-0400 Respiratory rate 18 /min Tasha Zamora MD Work Phone: [facility] 09-20-2024 21:30-0400 SaO2% (BldA) [Mass fraction] 97 % Tasha Zamora MD Work Phone: [employer] 09-20-2024 21:30-0400 Systolic blood pressure 119 mm[Hg] Tasha Zamora MD Work Phone: [employer] 09-20-2024 18:13-0400 Body height 157.5 cm Tasha Zamora MD Work Phone: [employer] 09-20-2024 18:13-0400 Body mass index (BMI) [Ratio] 22.86 kg/m2 Tasha Zamora MD Work Phone: [employer] 09-20-2024 18:13-0400 Body temperature 98.1 [degF] Tasha Zamora MD Work Phone: [employer] 09-20-2024 18:13-0400 Body weight 56.7 kg Tasha Zamora MD Work Phone: [employer] 08-08-2024 19:32-0400 Diastolic blood pressure 62 mm[Hg] [employer] 08-08-2024 19:32-0400 SaO2% (BldA) [Mass fraction] 98 % [employer] 08-08-2024 19:32-0400 Systolic blood pressure 135 mm[Hg] [employer] 08-08-2024 17:51-0400 Body height 157.5 cm [facility] [employer] 08-08-2024 17:51-0400 Body mass index (BMI) [Ratio] 22.86 kg/m2 [employer] 08-08-2024 17:51-0400 Body temperature 98.29 [degF] [facility] 17:51-0400 Body weight 56.7 kg [facility] [employer] 08-08-2024 17:51-0400 Heart rate 86 /min [facility] [employer] 08-08-2024 17:51-0400 Respiratory rate 20 /min [facility] 04-07-2024 16:14-0500 Heart rate 93 /min Peter Strugalski MD Work Phone[facility] 04-07-2024 16:14-0500 SaO2% (BldA) [Mass fraction] 100 % Peter Escalera MD Work Phone[facility] 04-07-2024 13:10-0500 Body height 157.5 cm Peter Escalera MD Work Phone[facility] 04-07-2024 13:10-0500 Body mass index (BMI) [Ratio] 22.86 kg/m2 Peter Escalera MD Work Phone: [facility] 04-07-2024 13:10-0500 Body temperature 97.9 [degF] Peter Escalera MD Work Phone[facility] 04-07-2024 13:10-0500 Body weight 56.7 kg Peter Ecsalera MD [facility] 04-07-2024 13:10-0500 Diastolic blood pressure 88 mm[Hg] Peter Escalera MD [facility] 04-07-2024 13:10-0500 Respiratory rate 16 /min Peter Escalera MD [facility] 04-07-2024 13:10-0500 Systolic blood pressure 139 mm[Hg] Peter Escalera MD [facility] 01-19-2024 11:30-0500 Diastolic blood pressure 63 mm[Hg] Sabrina Dee MD, MPH Work Phone: [facility] 01-19-2024 11:30-0500 Heart rate 73 /min Sabrina Dee MD, MPH Work Phone: [facility] 01-19-2024 11:30-0500 Respiratory rate 18 /min Sabrina Dee MD, MPH Work Phone: [facility] 01-19-2024 11:30-0500 SaO2% (BldA) [Mass fraction] 99 % Sabrina Dee MD, MPH Work Phone: [facility] 01-19-2024 11:30-0500 Systolic blood pressure 120 mm[Hg] Sabrina Dee MD, MPH Work Phone: [facility] 01-19-2024 09:54-0500 Body temperature 98.01 [degF] Sabrina eDe MD, MPH Work Phone: [facility] 01-07-2024 16:13-0400 Diastolic blood pressure 41 mm[Hg] [facility] [employer] 01-07-2024 16:13-0400 Heart rate 82 /min [facility] [employer] 01-07-2024 16:13-0400 Respiratory rate 15 /min [facility] [employer] 01-07-2024 16:13-0400 Systolic blood pressure 127 mm[Hg] [facility] [employer] 01-07-2024 14:14-0400 Body height 157.5 cm [facility] [employer] 01-07-2024 14:14-0400 Body mass index (BMI) [Ratio] 21.95 kg/m2 [facility] [employer] 01-07-2024 14:14-0400 Body temperature 98.1 [degF] [facility] [employer] 01-07-2024 14:14-0400 Body weight 54.43 kg [facility] [employer] 01-07-2024 14:14-0400 SaO2% (BldA) [Mass fraction] 99 % [facility] [employer] 09-29-2023 21:39-0400 Heart rate 102 /min [facility] [email or web address] 09-29-2023 21:29-0400 SaO2% (BldA) [Mass fraction] 96 % [facility] [email or web address] 09-29-2023 20:32-0400 Diastolic blood pressure 94 mm[Hg] [facility] [email or web address] 09-29-2023 20:32-0400 Systolic blood pressure 124 mm[Hg] [facility] 09-29-2023 18:57-0400 Body height 157.5 cm [facility] 09-29-2023 18:57-0400 Body mass index (BMI) [Ratio] 22.86 kg/m2 [facility] 09-29-2023 18:57-0400 Body temperature 98.1 [degF] [facility] 09-29-2023 18:57-0400 Body weight 56.7 kg [facility] 09-29-2023 18:57-0400 Respiratory rate 18 /min [facility] 09-08-2023 09:00-0400 Diastolic blood pressure 54 mm[Hg] Sabrina Dee MD, MPH Work Phone: [facility] 09-08-2023 09:00-0400 Heart rate 83 /min Sabrina Dee MD, MPH Work Phone: [facility] 09-08-2023 09:00-0400 Respiratory rate 13 /min Sabrina Dee MD, MPH Work Phone: [facility] 09-08-2023 09:00-0400 SaO2% (BldA) [Mass fraction] 95 % Sabrina Dee MD, MPH Work Phone: [facility] 09-08-2023 09:00-0400 Systolic blood pressure 94 mm[Hg] Sabrina Dee MD, MPH Work Phone: [facility] 09-08-2023 08:04-0400 Body temperature 97.7 [degF] Sabrina Dee MD, MPH Work Phone: [facility] 09-08-2023 06:43-0400 Body height 157.5 cm Sabrina Dee MD, MPH Work Phone: [facility] 05-11-2023 09:01-0500 Body height 157.5 cm Sabrina Dee MD, MPH Work Phone: [facility] 05-11-2023 09:01-0500 Body mass index (BMI) [Ratio] 21 kg/m2 Sabrina Dee MD, MPH Work Phone: [facility] 05-11-2023 09:01-0500 Body weight 52.07 kg Sabrina Dee MD, MPH Work Phone: [facility] 05-11-2023 09:01-0500 Diastolic blood pressure 48 mm[Hg] Sabrina Dee MD, MPH Work Phone: [facility] 05-11-2023 09:01-0500 Heart rate 107 /min Sabrina Dee MD, MPH Work Phone: [facility] 05-11-2023 09:01-0500 SaO2% (BldA) [Mass fraction] 97 % Sabrina Dee MD, MPH Work Phone: [facility] 05-11-2023 09:01-0500 Systolic blood pressure 110 mm[Hg] Sabrina Dee MD, MPH Work Phone: [facility] 04-18-2023 17:39-0500 Diastolic blood pressure 79 mm[Hg] [facility] 04-18-2023 17:39-0500 Heart rate 114 /min [facility] 04-18-2023 17:39-0500 Respiratory rate 16 /min [facility] 04-18-2023 17:39-0500 SaO2% (BldA) [Mass fraction] 98 % [facility] 04-18-2023 17:39-0500 Systolic blood pressure 168 mm[Hg] [facility] 04-18-2023 15:29-0500 Body height 157.48 cm [facility] 04-18-2023 15:29-0500 Body temperature 99.3 [degF] [facility] 04-18-2023 15:29-0500 Body weight 51.25 kg [facility] 04-11-2023 23:50-0500 Diastolic blood pressure 82 mm[Hg] [facility] 04-11-2023 23:50-0500 Heart rate 106 /min [facility] 04-11-2023 23:50-0500 SaO2% (BldA) [Mass fraction] 97 % [facility] 04-11-2023 23:50-0500 Systolic blood pressure 151 mm[Hg] [facility] 04-11-2023 22:25-0500 Respiratory rate 18 /min [facility] 04-11-2023 21:20-0500 Body height 157.48 cm [facility] 04-11-2023 21:20-0500 Body temperature 97.2 [degF] [facility] 04-11-2023 21:20-0500 Body weight 52 kg [facility] 04-02-2023 19:20-0500 Diastolic blood pressure 74 mm[Hg] [facility] 04-02-2023 19:20-0500 Heart rate 91 /min [facility] 04-02-2023 19:20-0500 Respiratory rate 18 /min [facility] 04-02-2023 19:20-0500 SaO2% (BldA) [Mass fraction] 96 % [facility] 04-02-2023 19:20-0500 Systolic blood pressure 137 mm[Hg] [facility] 04-02-2023 13:45-0500 Body height 157.48 cm [facility] 04-02-2023 13:45-0500 Body temperature 97.6 [degF] [facility] 04-02-2023 13:45-0500 Body weight 54 kg [facility] 11-09-2022 16:30-0400 Diastolic blood pressure 81 mm[Hg] [facility] 11-09-2022 16:30-0400 Heart rate 78 /min [facility] 11-09-2022 16:30-0400 Respiratory rate 18 /min [facility] 11-09-2022 16:30-0400 SaO2% (BldA) [Mass fraction] 99 % [facility] 11-09-2022 16:30-0400 Systolic blood pressure 141 mm[Hg] [facility] 11-09-2022 13:47-0400 Body height 160.02 cm [facility] 11-09-2022 13:47-0400 Body temperature 98.2 [degF] [facility] 11-09-2022 13:47-0400 Body weight 54.2 kg [facility] 08-12-2022 13:15-0400 Diastolic blood pressure 68 mm[Hg] Sabrina Dee MD, MPH Work Phone: [facility] 08-12-2022 13:15-0400 Heart rate 67 /min Sabrina Dee MD, MPH Work Phone: [facility] 08-12-2022 13:15-0400 Respiratory rate 22 /min Sabrina Dee MD, MPH Work Phone: [facility] 08-12-2022 13:15-0400 SaO2% (BldA) [Mass fraction] 99 % Sabrina Dee MD, MPH Work Phone: [facility] 08-12-2022 13:15-0400 Systolic blood pressure 142 mm[Hg] Sabrina Dee MD, MPH Work Phone: [facility] 08-12-2022 11:45-0400 Body temperature 97.81 [degF] Sabrina Dee MD, MPH Work Phone: [facility] 08-12-2022 10:34-0400 Body height 157.5 cm Sabrina Dee MD, MPH Work Phone: [facility] 06-16-2022 10:52-0400 Body mass index (BMI) [Ratio] 23.41 kg/m2 Sabrina Dee MD, MPH Work Phone: [facility] 06-16-2022 10:52-0400 Body weight 58.06 kg Sabrina Dee MD, MPH Work Phone: [facility] 06-16-2022 10:52-0400 Diastolic blood pressure 68 mm[Hg] Sabrina Dee MD, MPH Work Phone: [facility] 06-16-2022 10:52-0400 Heart rate 83 /min Sabrina Dee MD, MPH Work Phone: [facility] 06-16-2022 10:52-0400 SaO2% (BldA) [Mass fraction] 98 % Sabrina Dee MD, MPH Work Phone: [facility] 06-16-2022 10:52-0400 Systolic blood pressure 122 mm[Hg] Sabrina Dee MD, MPH Work Phone: [facility] 03-22-2022 16:51-0500 Diastolic blood pressure 61 mm[Hg] [facility] 03-22-2022 16:51-0500 Heart rate 98 /min [facility] 03-22-2022 16:51-0500 Respiratory rate 20 /min [facility] 03-22-2022 16:51-0500 SaO2% (BldA) [Mass fraction] 98 % [facility] 03-22-2022 16:51-0500 Systolic blood pressure 149 mm[Hg] [facility] 03-22-2022 14:59-0500 Body height 157.48 cm [facility] 03-22-2022 14:59-0500 Body temperature 97.9 [degF] [facility] 03-22-2022 14:59-0500 Body weight 56 kg [facility] 12-16-2021 11:53-0400 Body height 157.5 cm Sabrina Dee MD, MPH Work Phone: [facility] 12-16-2021 11:53-0400 Body mass index (BMI) [Ratio] 22.5 kg/m2 Sabrina Dee MD, MPH Work Phone: [facility] 12-16-2021 11:53-0400 Body weight 55.79 kg Sabrina Dee MD, MPH Work Phone: [facility] 12-16-2021 11:53-0400 Diastolic blood pressure 72 mm[Hg] Sabrina eDe MD, MPH Work Phone: [facility] 12-16-2021 11:53-0400 Heart rate 80 /min Sabrina Dee MD, MPH Work Phone: [facility] 12-16-2021 11:53-0400 SaO2% (BldA) [Mass fraction] 98 % Sabrina Dee MD, MPH Work Phone: [facility] 12-16-2021 11:53-0400 Systolic blood pressure 118 mm[Hg] Sabrina Dee MD, MPH Work Phone: [facility] 10-09-2021 20:00-0400 Body temperature 98.3 [degF] [facility] 10-09-2021 20:00-0400 Diastolic blood pressure 68 mm[Hg] [facility] 10-09-2021 20:00-0400 Heart rate 86 /min [facility] 10-09-2021 20:00-0400 Respiratory rate 20 /min [facility] 10-09-2021 20:00-0400 SaO2% (BldA) [Mass fraction] 100 % [facility] 10-09-2021 20:00-0400 Systolic blood pressure 110 mm[Hg] [facility] 10-09-2021 14:19-0400 Body height 157.48 cm [facility] 10-09-2021 14:19-0400 Body weight 56.69 kg [facility] 10-04-2021 19:00-0400 Diastolic blood pressure 66 mm[Hg] [facility] 10-04-2021 19:00-0400 Heart rate 72 /min [facility] 10-04-2021 19:00-0400 Respiratory rate 16 /min [facility] 10-04-2021 19:00-0400 SaO2% (BldA) [Mass fraction] 96 % [facility] 10-04-2021 19:00-0400 Systolic blood pressure 110 mm[Hg] [facility] 10-04-2021 15:16-0400 Body temperature 97.9 [degF] [facility] 10-04-2021 15:15-0400 Body height 157.48 cm [facility] 10-04-2021 15:15-0400 Body weight 54.5 kg [facility] 09-25-2021 19:58-0400 Heart rate 82 /min [facility] 09-25-2021 18:04-0400 Body temperature 98.1 [degF] [facility] 09-25-2021 18:00-0400 Body height 157.48 cm [facility] 09-25-2021 18:00-0400 Body weight 55.5 kg [facility] 09-25-2021 18:00-0400 Diastolic blood pressure 107 mm[Hg] [facility] 09-25-2021 18:00-0400 Respiratory rate 18 /min [facility] 09-25-2021 18:00-0400 SaO2% (BldA) [Mass fraction] 98 % [facility] 09-25-2021 18:00-0400 Systolic blood pressure 141 mm[Hg] [facility] 08-11-2021 18:12-0400 Heart rate 86 /min [facility] 08-11-2021 18:00-0400 Diastolic blood pressure 69 mm[Hg] [facility] 08-11-2021 18:00-0400 Respiratory rate 20 /min [facility] 08-11-2021 18:00-0400 SaO2% (BldA) [Mass fraction] 98 % [facility] 08-11-2021 18:00-0400 Systolic blood pressure 114 mm[Hg] [facility] 08-11-2021 16:06-0400 Body height 170.18 cm [facility] 08-11-2021 16:06-0400 Body mass index (BMI) [Ratio] 19.6 kg/m2 [facility] 08-11-2021 16:06-0400 Body temperature 97.9 [degF] [facility] 08-11-2021 16:06-0400 Body weight 57 kg [facility] 03-19-2021 14:30-0500 Body height 157.48 cm Marya Ginty Other [employer] [facility] [employer] Other 03-19-2021 14:30-0500 Body mass index (BMI) [Ratio] 24.69 kg/m2 Marya Ginty Other [employer] Other 03-19-2021 14:30-0500 Body temperature 96 [degF] Marya Ginty Other [employer] Other 03-19-2021 14:30-0500 Body weight 61.24 kg Marya Ginty Other [employer] Other 03-19-2021 14:30-0500 Respiratory rate 63 /min Marya Ginty Other [employer] Other 03-19-2021 14:30-0500 SaO2% (BldA) [Mass fraction] 97 % Marya Ginty Other [employer] Other 03-26-2020 21:05-0500 Pulse Oximetry 100 % [facility] [place] 03-26-2020 21:01-0500 BP Diastolic 68 mm[Hg] [facility] [place] 03-26-2020 21:01-0500 BP Systolic 152 mm[Hg] [facility] [place] 03-26-2020 17:32-0500 BMI (Body Mass Index) 22.86 kg/m2 [place], [place] 03-26-2020 17:32-0500 Body weight 56.7 kg [facility] [place] 03-26-2020 17:32-0500 Height 157.5 cm [place] 03-26-2020 17:32-0500 Pulse (Heart Rate) 90 /min [place] 03-26-2020 17:32-0500 Respiratory Rate 18 /min [facility] 03-26-2020 12:39-0500 Body Temperature 98.71 [degF] [facility] 08-25-2019 08:30-0400 Body Temperature 98.01 [degF] Rajeev [facility], [place] 08-25-2019 08:30-0400 BP Diastolic 75 mm[Hg] Rajeev [facility] , [place] 08-25-2019 08:30-0400 BP Systolic 117 mm[Hg] Rajeev [facility] [place] 08-25-2019 08:30-0400 Pulse (Heart Rate) 84 /min Rajeev [place] 08-25-2019 08:30-0400 Pulse Oximetry 97 % Rajeev [facility] [place] 08-25-2019 08:30-0400 Respiratory Rate 16 /min Rajeev [facility] [place] 08-25-2019 05:30-0400 BMI (Body Mass Index) 25.88 kg/m2 Raje[place] 08-25-2019 05:30-0400 Body weight 64.18 kg Rajeev [facility] [place] 08-22-2019 16:00-0400 Height 157.5 cm Rajeev [place] 03-04-2018 13:09-0500 BP Di[facility] 69 mm[Hg] [facility] 03-04-2018 13:09-0500 BP Systolic 108 mm[Hg] [facility] 03-04-2018 11:-0500 Body Temperature 98.6 [degF] [facility] 03-04-2018 11:01-0500 Height 157.5 cm [facility] 03-04-2018 11:01-0500 Weight 56.7 kg [facility] 08-24-2017 20:58-0400 BP Diastolic 64 mm[Hg] [facility] 08-24-2017 20:58-0400 BP Systolic 126 mm[Hg] [facility] 08-24-2017 20:58-0400 Pulse (Heart Rate) 67 /min [facility] 08-24-2017 20:58-0400 Pulse Oximetry 98 % [facility] 08-24-2017 20:58-0400 Respiratory Rate 18 /min [facility] 08-24-2017 13:41-0400 BMI (Body Mass Index) 21.58 kg/m2 [facility] 08-24-2017 13:41-0400 Body Temperature 98.29 [degF] [facility] 08-24-2017 13:41-0400 Height 157.5 cm [facility] 08-24-2017 13:41-0400 Weight 53.52 kg [facility] 06-09-2017 09:32-0400 BP Diastolic 73 mm[Hg] Mario [facility] 06-09-2017 09:32-0400 BP Systolic 106 mm[Hg] Mario [facility] 06-09-2017 09:32-0400 Pulse (Heart Rate) 86 /min Mario [facility] 06-09-2017 09:32-0400 Pulse Oximetry 99 % [facility] 06-09-2017 09:32-0400 Respiratory Rate 16 /min Mario Vaughn [facility] 06-09-2017 07:20-0400 BMI (Body Mass Index) 21[facility]87 [facility] 06-09-2017 07:20-0400 Body Temperature 98.4 [degF] Mario Vaughn [facility] 06-09-2017 07:20-0400 [facility] 06-09-2017 07:20-[address] [facility] 05-15-2017 08:11-0500 Body Temperature 98.01 [degF] David [facility] 05-15-2017 08:11-0500 BP Diastolic 69 mm[Hg] [facility] 05-15-2017 08:11-0500 BP Systolic 116 mm[Hg] [facility] 05-15-2017 08:11-0500 Pulse (Heart Rate) 76 /min [facility] 05-15-2017 08:11-0500 Pulse Oximetry 95 % [facility] 05-15-2017 08:11-0500 Respiratory Rate 15 /min [facility] 05-14-2017 12:58-0500 BMI (Body Mass Index) 21.95 kg/m2 [facility] 05-14-2017 12:58-0500 Height 157.5 cm [facility] 05-14-2017 12:58-0500 Weight 54.43 kg [facility] Encounters Encounter Date Encounter Type Care Provider Facility Start: 12-13-2024 End: 12-13-2024 ambulatory LINDSEY WILLARD Facility:[facility] Start: 12-09-2024 End: 12-11-2024 ambulatory CYNTHIA GALINDO Facility:[facility] Start: 12-08-2024 End: 12-08-2024 Emergency department patient visit [facility] Start: 11-25-2024 End: 11-29-2024 Evaluation and management of inpatient Geno Martin [place] [place]: 11-24-2024 Emergency department patient visit Loki Ernandez [facility] Start: 11-17-2024 ambulatory LINDSEY WILLARD Facil ity:[facility] Start: 11-17-2024 End: 11-17-2024 Subsequent hospital visit by physician Josse Romo MD Work Phone: Gastroenterology Comment on above: Chronic pancreatitis , unspecified pancreatitis type (HCC) [K86.1] Start: 11-06-2024 End: 11-09-2024 Evaluation and management of inpatient Raji Gilliam MD Work Phone: [facility] Comment on above: Acute pancreatitis, unspecified complication status, unspecified pancreatitis type (Primary Dx) Start: 11-02-2024 End: 11-03-2024 Office outpatient visit 15 minutes Lindsey Willard [employer] Work Phone: Gastroenterology Comment on above: Chronic pancreatitis , unspecified pancreatitis type (HCC) (Primary Dx); Exocrine pancreatic insufficiency (HCC); Epigastric pain; Loose stools; Heartburn; Tobacco use Start: 11-02-2024 End: 11-03-2024 ambulatory LINDSEY ROSADOLY Facility:[facility] Start: 10-28-2024 End: 10-28-2024 Emergency department patient visit -Emergency Room Work Phone: Start: 10-26-2024 End: 10-26-2024 Emergency department patient visit [facility] Start: 10-24-2024 End: 10-24-2024 Emergency department patient visit [facility] [place] Start: 10-19-2024 End: 10-19-2024 Emergency department patient visit -Emergency Room Work Phone: Start: 10-11-2024 End: 10-11-2024 Emergency department patient visit [facility] Start: 10-09-2024 End: 10-09-2024 Emergency department patient visit [facility] [place] Start: 10-03-2024 End: 10-03-2024 Emergency department patient visit [facility] [place] Start: 09-27-2024 End: 09-27-2024 Emergency department patient visit Tasha Zamora MD Work Phone: [facility] Comment on above: Abdominal pain, epig astric (Primary Dx); Nausea and vomiting, unspecified vomiting type Start: 09-20-2024 End: 09-20-2024 Emergency department patient visit Tasah Zamora MD Work Phone: [facility] Comment on above: Other chronic pancre atitis (HCC) (Primary Dx) Start: 09-18-2024 End: 09-19-2024 Emergency department patient visit [facility] Start: 09-05-2024 End: 09-05-2024 Emergency department patient visit [facility] Start: 08-10-2024 End: 08-10-2024 Emergency department patient visit [facility] Start: 08-08-2024 End: 08-08-2024 Emergency department patient visit [facility] Comment on above: Abdominal pain, epig astric (Primary Dx) Start: 07-20-2024 End: 07-21-2024 Emergency department patient visit [facility] Start: 06-27-2024 End: 06-27-2024 Emergency department patient visit [facility] Start: 06-15-2024 End: 06-15-2024 Emergency department patient visit [facility] Start: 05-31-2024 End: 05-31-2024 Emergency department patient visit [facility] Start: 04-07-2024 End: 04-07-2024 Emergency department patient visit Peter Escalera MD Work Phone: [facility] Comment on above: Acute pancreatitis w ithout infection or necrosis, unspecified pancreatitis type (Primary Dx); Acute recurrent pancreatitis Start: 03-18-2024 End: 03-18-2024 Emergency department patient visit [facility] Start: 01-19-2024 [facility] Start: 01-19-2024 End: 01-19-2024 Subsequent hospital visit by physician Sabrina Dee MD, MPH Work Phone: [facility] Start: 01-14-2024 End: 01-14-2024 Emergency department patient visit [facility] Start: 01-07-2024 End: 01-07-2024 Emergency department patient visit [facility] Comment on above: Acute on chronic see creatitis (HCC) (Primary Dx); Abdominal pain, epigastric Start: 12-29-2023 End: 12-29-2023 Emergency department patient visit [facility] Start: 09-29-2023 End: 09-29-2023 Emergency department patient visit [facility] Comment on above: Hypokalemia (Primary Dx); Acute recurrent pancreatitis Start: 09-08-2023 End: 09-08-2023 Subsequent hospital visit by physician Sabrina Dee MD, MPH Work Phone: [facility] Start: 09-08-2023 ambulatory [facility] [facility] Start: 05-22-2023 Telephone encounter [facility] Start: 05-11-2023 Chart abstracting Scanning Pro vider External [facility] Start: 05-11-2023 End: 05-11-2023 Office outpatient visit 40 minutes Sabrina Dee MD, MPH Work Phone: [facility] Comment on above: Alcohol-induced privacy specialist amish pancreatitis (Primary Dx); Encounter for screening for malignant neoplasm of colon; Other osteoporosis without current pathological fracture; Epigastric pain; Smoking; Gastroesophageal reflux disease without esophagitis Start: 05-11-2023 ambulatory SABRINA Ferreira [facility] Start: 04-18-2023 End: 04-18-2023 Emergency department patient visit [facility] Work Phone: Start: 04-16-2023 Telephone encounter Monalisa [facility] Start: 04-11-2023 End: 04-12-2023 Emergency department patient visit [facility] Work Phone: Start: 04-02-2023 End: 04-02-2023 Emergency department patient visit [facility] Work Phone: Start: 11-09-2022 End: 11-09-2022 Emergency department patient visit [facility] Work Phone: Start: 08-12-2022 End: 08-12-2022 Subsequent hospital visit by physician Sabrina Dee MD, MPH Work Phone: [facility] Start: 06-16-2022 End: 06-16-2022 Office outpatient visit 40 minutes Sabrina Dee MD, MPH Work Phone: [facility] [place] Comment on above: Osteoporosis without current pathological fracture, unspecified osteoporosis type (Primary Dx); Alcohol-induced chronic pancreatitis Start: 06-13-2022 End: 06-13-2022 ambulatory ARIC ARCINIEGA . Facility:[facility] Start: 03-29-2022 End: 03-29-2022 ambulatory ELENITA ROLLINS . Facility:[facility] Start: 03-22-2022 End: 03-22-2022 Emergency department patient visit [facility] Work Phone: Start: 03-19-2022 End: 03-19-2022 ambulatory MONIK PARKINSON . Facility:[facility] Start: 01-28-2022 End: 01-28-2022 Subsequent hospital visit by physician Sabrina Dee MD, MPH Work Phone: [facility] Start: 01-27-2022 End: 01-27-2022 Subsequent hospital visit by physician Sabrina Dee MD, MPH Work Phone: [facility] [place] Comment on above: Arrived Start: 01-15-2022 End: 01-15-[address] CRUZITO KITCHEN . Facility:[facility] Start: 12-16-2021 End: 12-16-2021 Office outpatient visit 25 minutes Sabrina Dee MD, MPH Work Phone: [facility] Comment on above: Recurrent acute panc reatitis (Primary Dx); History of smoking 25-50 pack years; Alcohol-induced chronic pancreatitis; Epigastric pain; Encounter for screening colonoscopy Start: 12-13-2021 End: 12-14-2021 ambulatory NICK COY Facility:[facility] Start: 12-05-2021 End: 12-05-[address] RAJEEV KELLOGG Facility:[facility] Start: 10-11-2021 End: 10-12-[address] RAJEEV KELLOGG Facility:[facility] Start: 10-04-2021 End: 10-04-2021 Emergency department patient visit [facility] Start: 09-30-2021 End: 09-30-2021 ambulatory NAT MAXWELL . Facility:[facility] Start: 09-25-2021 End: 09-25-2021 Emergency department patient visit [facility] Start: 09-17-2021 End: 09-17-[address] RAJEEV KELLOGG Facility:[facility] Start: 08-26-2021 End: 08-26-2021 ambulatory NICK COY Facility:[facility] Start: 08-22-2021 End: 08-22-[address] TRI HANSON Facility:[facility] Start: 08-13-2021 End: 08-13-2021 ambulatory AGUSTIN MADRIGAL Facility:[facility] Start: 08-11-2021 End: 08-11-2021 Emergency department patient visit [facility] Start: 07-31-2021 End: 07-31-2021 ambulatory YANNI FRASER Facility:[facility] Start: 07-19-2021 End: 07-19-2021 ambulatory LYNNE PERDOMO Facility:[facility] Start: 03-19-2021 End: 03-19-2021 ambulatory Marya Almonte Other [employer] Other Start: 03-19-2021 Office outpatient visit 15 minutes Marya Almonte [facility] Start: 05-22-2020 End: 05-22-2020 Orders Only Izabela Grant Work Phone: [facility] Start: 03-26-2020 End: 03-26-2020 Emergency department patient visit [facility] ED Comment on above: Acute biliary pancre atitis, unspecified complication status (Primary Dx) Start: 08-22-2019 End: 08-25-2019 Evaluation and management of inpatient Rajeev Cantor Work Phone: [facility] Comment on above: Acute pancreatitis, unspecified complication status, unspecified pancreatitis type (Primary Dx); Pain of upper abdomen Start: 03-08-2018 End: 03-09-2018 Evaluation and management of inpatient [facility] Start: 03-04-2018 End: 03-04-2018 Patient encounter procedure [facility] Start: 03-04-2018 End: 03-04-2018 Emergency department patient visit Keerthi Nguyen Work Phone: [phone] [place] [address] Emergency Department Comment on above: Acute on chronic see creatitis (HCC) (Primary Dx) Start: 08-24-2017 End: 08-24-2017 Emergency department patient visit [facility] Start: 08-24-2017 End: 08-24-2017 Emergency department patient visit Sarah Walton Work Phone: [phone] [place] [address] Emergency Department Start: 06-09-2017 End: 06-09-2017 Emergency department patient visit [facility] Start: 06-09-2017 End: 06-09-2017 Emergency department patient visit Mario Mendes Work Phone: [phone] [place] [address] Emergency Department Start: 05-14-2017 End: 05-15-2017 Patient encounter procedure [facility] Start: 05-14-2017 End: 05-15-2017 Emergency department patient visit David Gibson Work Phone: [phone] [place] [address] Medical Observation Procedures Date Procedure Procedure Detail Performing Clinician Start: 11-17-2024 Esophagoscp rig transoral hypopharynx crv yun Willard [employer] Work Phone: Start: 11-09-2024 Assay of lipase Raji Gilliam MD Work Phone: Start: 11-08-2024 Mri abdomen w/o & w/contrast material Carley Anne [employer] Work Phone: Start: 11-08-2024 Assay of lipase Raji Gilliam MD Work Phone: Start: 11-07-2024 Rhythm ecg 1-3 leads w/interpretation & report Unknown Provider Result Start: 11-07-2024 Assay of lipase Raji Gilliam MD Work Phone: Start: 11-06-2024 End: 11-07-2024 Ecg routine ecg w/least 12 lds i&r only Raji Gilliam MD Work Phone: Start: 11-06-2024 Comprehensive metabolic panel David Malloy PA-C Work Phone: Start: 10-28-2024 Computed tomography of abdomen and pelvis with contrast Start: 10-19-2024 Computed tomography of abdomen and pelvis with contrast Start: 09-27-2024 Comprehensive metabolic panel Tasha Zamora MD Work Phone: Start: 09-20-2024 Comprehensive metabolic panel Tasha Zamora MD Work Phone: Start: 09-20-2024 Urnls dip stick/tablet reagent auto microscopy Tasha Zamoar MD Work Phone: Start: 08-08-2024 Urinalysis microscopic only Ion Car PA-C Work Phone: Start: 08-08-2024 Urnls dip stick/tablet rgnt auto w/o microscopy Ion Car PA-C Work Phone: Start: 08-08-2024 Comprehensive metabolic panel Ion Car PA-C Work Phone: Start: 04-07-2024 Urnls dip stick/tablet rgnt auto w/o microscopy Peter Escalera MD Work Phone: Start: 04-07-2024 End: 04-07-2024 Basic metabolic panel calcium total Peter Escalera MD Work Phone: Start: 04-07-2024 Hepatic function panel Peter Escalera MD Work Phone: Start: 04-07-2024 Ct abdomen & pelvis w/contrast material Peter Escalera MD Work Phone: Start: 01-19-2024 UPPER EUS Sabrina Dee MD, MPH Work Phone: Start: 01-07-2024 Urnls dip stick/tablet reagent auto microscopy Tasha Zamora MD Work Phone: Start: 01-07-2024 Comprehensive metabolic panel Tasha Zamora MD Work Phone: Start: 01-07-2024 Ecg routine ecg w/least 12 lds w/i&r Tasha Zamora MD Work Phone: Start: 09-29-2023 Urinalysis microscopic only Kerrie Lopez rne PA-C Work Phone: Start: 09-29-2023 Urnls dip stick/tablet rgnt auto w/o microscopy Kerrie Kincaid PA-C Work Phone: Start: 09-29-2023 Comprehensive metabolic panel Kerrie Kincaid PA-C Work Phone: Start: 09-08-2023 UPPER EUS Sabrina Dee MD, MPH Work Phone: Start: 04-18-2023 CT of abdomen and pelvis without contrast Start: 04-11-2023 Computed tomography of abdomen and pelvis with contrast Start: 04-02-2023 Computed tomography of abdomen and pelvis with contrast Start: 11-09-2022 Computed tomography of abdomen and pelvis with contrast Start: 08-12-2022 UPPER GALE Dee MD, MPH Work Phone: Start: 01-28-2022 UPPER GALE Dee MD, MPH Work Phone: Start: 01-27-2022 Dxa bone density study 1/> sites axial skel Sabrina Dee MD, [...] Dickinson Work Phone: Start: 03-26-2020 Lactate [Moles/Vol] Erasto Dickinson Work Phone: Start: 03-26-2020 SPECIMEN REJECTION Erasto Dickinson Work Phone: Start: 03-26-2020 Urnls dip stick/tablet rgnt auto w/o microscopy Erasto Dickinson Work [...] Rajeev Cantor Work Phone: Start: 08-23-2019 Comprehensive metabolic panel Rajeev Cantor Work Phone: Start: 08-22-2019 Urnls dip stick/tablet reagent auto microscopy Rajeev Cantor Work Phone: Start: 08-22-2019 Assay of lactate Rajeev Cantor Work Phone: Start: 08-22-2019 Assay of lipase Rajeev Cantor Work Phone: Start: 08-22-2019 Blood count complete auto&auto difrntl wbc Rajeev Cantor Work Phone: Start: 08-22-2019 Comprehensive metabolic panel Rajeev Cantor Work Phone: Start: 03-08-2018 Lipid 1996 panel - Serum or Plasma Lindsey Willard [employer] Work Phone: Start: 03-04-2018 End: 03-04-2018 Urinalysis Raji Morris camille Work Phone: Start: 03-04-2018 End: 03-04-2018 Basic metabolic 1998 panel - Serum or Plasma Remyannita Stephanie Cathleen Work Phone: Start: 03-04-2018 End: 03-04-2018 Complete blood count with white cell differential, automated Remyannita Connolly Work Phone: Start: 03-04-2018 End: 03-04-2018 Complete blood count with white cell differential, manual Raji Stephanie Connolly Work Phone: Start: 03-04-2018 End: 03-04-2018 RUFF TOP Keerthi Nguyen Work Phone: Start: 03-04-2018 End: 03-04-2018 Hepatic function 2000 panel - Serum or Plasma Raji Stephanie Cathleen Work Phone: Start: 03-04-2018 End: 03-04-2018 LIGHT BLUE TOP Heather Nguyen Work Phone: Start: 03-04-2018 End: 03-04-2018 LIGHT GREEN TOP Keerthi Nguyen Work Phone: Start: 03-04-2018 End: 03-04-2018 Lipase [Enzymatic activity/volume] in Serum or Plasma Raji Horner Cathleen Work Phone: Start: 03-04-2018 End: 03-04-2018 PINK TOP Heather Nguyen Work Phone: Start: 03-04-2018 End: 03-04-2018 RAINBOW DRAW Keerthi Nguyen Work Phone: Start: 09-25-2017 Lipid 1996 panel - Serum or Plasma Sabrina Dee MD, MPH Work Phone: Start: 01-02-2012 Mammography Izabela Grant Start: 12-11-2011 Microscopic observation [Identifier] in Cervix by Cyto stain Keerthi Nguyen Start: 10-10-2011 Colonoscopy Lindsey Willard [employer] Work Phone: Start: 08-22-2011 History of cholecystectomy S/P cholecystectomy Lindsey khan [employer] Work Phone: Plan of Treatment Date Care Activity Detail Author Start: 11-10-2027 Diabetes Screening Diabetes Screening [facility] Start: 10-12-2027 Diabetes Screening Diabetes Screening [facility] Start: 12-05-2024 End: 12-05-2024 Follow-up encounter 12/05/2024 1:30 PM EDT [facility] [address] [id number] Lindsey Willard APRN.IT INTERN [address] [id number] follow up Gastroenterology Comment on above: follow up Start: 11-17-2024 End: 11-17-2024 Patient encounter procedure 11/17/2024 3:30 PM EDT Appointment Gastroenterology [address] [phone] Josse Romo MD [address] [place] [address] Chronic pancreatitis, unspecified pancreatitis type (HCC) [K86.1] Gastroenterology Comment on above: Chronic pancreatitis, unspecified pancre atitis type (HCC) [K86.1] Start: 11-07-2024 COVID-19 Vaccine () COVID-19 Vaccine () [facility] Start: 11-07-2024 Influenza vaccination Influenza Vaccine (#1) [facility] Start: 10-07-2024 Influenza vaccination [facility] [place] [employer] [facility] Start: 04-11-2024 Adult BMI Screening Adult BMI Screening [facility] [employer] Start: 04-11-2024 Tobacco Screening Tobacco Screening [facility] [employer] Start: 02-22-2024 End: 02-22-2024 Patient encounter procedure 02/22/2024 9:30 AM EST Office Visit [facility] [address] [address] Sabrina Dee MD, MPH [address] [place] [id number] [facility] Start: 11-08-2023 COVID-19 Vaccine ( season) COVID-19 Vaccine ( season) [facility] Start: 11-08-2023 COVID-19 Vaccine ( season) COVID-19 Vaccine ( season) [facility] Start: 11-08-2023 COVID-19 VACCINE ( season) COVID-19 VACCINE ( season) [facility] Start: 11-08-2023 Influenza vaccination INFLUENZA VACCINE (#1) [facility] Start: 10-08-2023 Influenza vaccination Flu vaccine (#1) [facility] Start: 05-25-2023 End: 05-25-2023 Patient encounter procedure 05/25/2023 1:00 PM EDT Office Visit [facility] [address] [place] [address] Orlando Al MD [address] [place] [address] [facility] Start: 05-19-2023 End: 05-10-2024 UPPER EUS UPPER EUS GI/Bronch Routine Alcohol-induced chronic pancreatitis Expected: 05/19/2023, Expires: 05/10/2024 [facility] Comment on above: Expected: 05/19/2023, Expires: Start: 05-11-2023 End: 05-10-2024 VITAMIN D (25-HYDROXY,TOTAL) VITAMIN D (25-HYDROXY,TOTAL) Lab Routine Other osteoporosis without current pathological fracture Expected: 05/11/2023, Expires: 05/10/2024 [facility] Comment on above: Expected: 05/11/2023, Expires: Start: 04-11-2023 Computed tomography of abdomen and pelvis with contrast CT abdomen pelvis w con [facility] Start: 04-11-2023 CT Abdomen and Pelvis W contrast IV [facility] Start: 03-16-2023 End: 03-16-2023 Patient encounter procedure 03/16/2023 Office Visit Gastroenterology Sabrina Dee MD, MPH [address] [place] [address] [facility] Start: 03-08-2023 Lipid panel Lipid Screening [facility] Start: 11-07-2022 COVID-19 VACCINE ( season) COVID-19 VACCINE ( season) [facility] Start: 11-07-2022 Influenza vaccination [facility] Start: 09-25-2022 Lipid panel LIPID SCREENING [facility] Start: 07-29-2022 End: 06-17-2023 UPPER EUS UPPER EUS GI/Bronch Routine Alcohol-induced chronic pancreatitis Expected: 07/29/2022, Expires: 06/17/2023 [facility] Comment on above: Expected: 07/29/2022, Expires: Start: 07-28-2022 End: 01-28-2023 Screening colonoscopy SCREENING COLONOSCOPY GI/Bronch Routine Encounter for screening colonoscopy Expected: 07/28/2022, Expires: 01/28/2023 [facility] Comment on above: Expected: 07/28/2022, Expires: 3 Start: 07-28-2022 End: 07-28-2022 Patient encounter procedure 07/28/2022 Appointment Endoscopy Julia Tyler MD [address] [phone] [facility] Start: 06-16-2022 End: 12-16-2022 Screening colonoscopy SCREENING COLONOSCOPY GI/Bronch Routine Encounter for screening colonoscopy Expected: 06/16/2022, Expires: 12/16/2022 [facility] Comment on above: Expected: 06/16/2022, Expires: 3 Start: 06-16-2022 End: 06-16-2022 Patient encounter procedure 06/16/2022 Office Visit Gastroenterology Sabrina Dee MD, MPH [address] [place] [address] [facility] Start: 03-22-2022 Bacteria identified in Urine by Culture [facility] Start: 01-28-2022 End: 01-28-2022 Patient encounter procedure 01/28/2022 Appointment Endoscopy Sabrina Dee MD, MPH [address] [place] [address] [facility] Start: 01-28-2022 Subsequent hospital visit by physician 01/28/2022 Hospital Encounter Endoscopy Sabrina Dee MD, MPH [address] [place] [address] Arrived [facility] Comment on above: Arrived Start: 01-14-2022 End: 12-16-2022 UPPER EUS UPPER EUS GI/Bronch Routine Recurrent acute pancreatitis Expected: 01/14/2022, Expires: 12/16/2022 [facility] Comment on above: Expected: 01/14/2022, Expires: 3 Start: 12-16-2021 End: 12-16-2022 Bone density scan BONE DENSITY AXIAL (HIP, PELVIS, SPINE) Imaging Routine Recurrent acute pancreatitis History of smoking 25-50 pack years Expected: 12/16/2021, Expires: 12/16/2022 [facility] Comment on above: Expected: 12/16/2021, Expires: 3 Start: 11-07-2021 Influenza vaccination INFLUENZA VACCINE (#1) [facility] Start: 10-09-2021 CT of abdomen and pelvis without contrast CT abdomen pelvis wo [facility] Start: 10-09-2021 End: 10-09-2021 Emergency department patient visit Departed Emergency [facility] Start: 11-13-2020 COVID-19 VACCINE (3 - Booster for Pfizer series) COVID-19 VACCINE (3 - Booster for Pfizer series) [facility] Start: 11-08-2019 Influenza vaccination [place] Start: 11-08-2019 Influenza vaccination given Sequential Influenza Vaccine (#1) [facility] Start: 06-21-2019 Administration of herpes zoster vaccine Zoster Vaccines (1 of 2) [facility] Start: 06-21-2019 Administration of varicella zoster vaccine Zoster (Shingles) Vaccine (1 of 2) [facility] Start: 06-21-2019 Pneumococcal 50+ years Vaccine (1 of 1 - PCV) Pneumococcal 50+ years Vaccine (1 of 1 - PCV) [facility] Start: 06-21-2019 Screening for malignant neoplasm of breast Breast cancer screen [place], [place] Start: 06-21-2019 Screening for malignant neoplasm of colon [place] Start: 06-21-2019 Screening for malignant neoplasm of lung LUNG CANCER SCREENING [facility] Start: 06-21-2019 Shingles Vaccine (1 of 2) Shingles Vaccine (1 of 2) [facility] Start: 06-21-2019 Shingrix Vaccine (1 of 2) Shingrix Vaccine (1 of 2) [facility] Start: 06-21-2019 Zoster vaccine hzv live for subcutaneous use ZOSTER (SHINGLES) VACCINE (1 of 2) [facility] Start: 11-07-2017 Influenza vaccination [facility] Start: 11-07-2016 Influenza vaccination SEQUENTIAL INFLUENZA VACCINE (#1) [facility] Start: 12-10-2014 Screening for malignant neoplasm of cervix PAP SMEAR [facility] Start: 2014 Screening for malignant neoplasm of colon [facility] Start: 01-01-2014 Screening for malignant neoplasm of breast Breast cancer screen [facility] Start: 01-01-2013 Screening for malignant neoplasm of breast [facility] Start: 01-01-2013 Screening mammography Mammogram [facility] Start: 2009 Lipid panel [facility] Start: 1990 Screening for malignant neoplasm of cervix [facility] Start: 1988 DTaP,Tdap and Td Vaccines (1 - Tdap) DTaP,Tdap and Td Vaccines (1 - Tdap) [facility] Start: 1988 DTaP/Tdap/Td vaccine (1 - Tdap) DTaP/Tdap/Td vaccine (1 - Tdap) [facility] Start: 1988 Hepatitis B vaccination HEP B VACCINE (1 of 3 - 19+ 3-dose series) [facility] Start: 1988 Hepatitis B vaccine (1 of 3 - 19+ 3-dose series) Hepatitis B vaccine (1 of 3 - 19+ 3-dose series) [facility] Start: 1988 Pneumococcal 50+ years Vaccine (1 of 2 - PCV) Pneumococcal 50+ years Vaccine (1 of 2 - PCV) [facility] Start: 1988 Pneumococcal Vaccine: 50+ (1 of 2 - PCV) Pneumococcal Vaccine: 50+ (1 of 2 - PCV) [facility] Start: 1988 Third diphtheria, tetanus and acellular pertussis (DTaP) vaccination TDAP (ADULT) [facility] Start: 1988 Urine microalbumin profile DTaP,Tdap,Td Vaccine (1 - Tdap) [facility] Start: 06-21-1987 Anxiety Screening Anxiety Screening [facility] Start: 06-21-1987 Depression Screening Depression Screening [facility] Start: 06-21-1987 Hepatitis C antibody, confirmatory test Hepatitis C Screening [facility] Start: 06-21-1987 Hepatitis C screening [facility] Start: 06-21-1987 HIV screening HIV Screening [facility] Start: 06-21-1987 Tetanus vaccination TETANUS [facility] Start: 1985 COVID-19 Vaccine (1 of 2) COVID-19 Vaccine (1 of 2) [facility] Start: 1984 HIV screening [facility] Start: 1981 Depression Screen Depression Screen [facility] Start: 1981 Depression Scre[facility] Start: 06-21-1975 Pneumococcal 0-64 years Vaccine (1 of 1 - PPSV23) Pneumococcal 0-64 years Vaccine (1 of 1 - PPSV23) [place] Start: 06-21-1975 Pneumococcal 0-64 years Vaccine (1 of 2 - PCV) Pneumococcal 0-64 years Vaccine (1 of 2 - PCV) [facility] Start: 06-21-1975 PNEUMOCOCCAL VACCINE SERIES (1 - PCV) PNEUMOCOCCAL VACCINE SERIES (1 - PCV) [facility] Start: 06-21-1975 PNEUMOCOCCAL VACCINE SERIES (1 of 2 - PCV) PNEUMOCOCCAL VACCINE SERIES (1 of 2 - PCV) [facility] Start: 1972 History and physical examination, annual for health maintenance Wellness Visit [facility] Start: 1969 COVID-19 Vaccine (#1) COVID-19 Vaccine (#1) [facility] Start: 1969 Hepatitis B vaccination HEP B VACCINE (1 of 3 - 3-dose series) [facility] Start: 1969 Hepatitis B vaccine (1 of 3 - 3-dose series) Hepatitis B vaccine (1 of 3 - 3-dose series) [facility] Start: 1969 Hepatitis C screening [facility] Start: 1969 Tetanus vaccination [facility] Start: 1969 Tobacco Counseling Tobacco Counseling [facility] CBC auto differential CBC auto d ifferential Lab Routine Daily until discontinued starting 08/23/2019, 3 completed [place] Comment on above: Daily until discontinued starting 2019, 3 completed End: 09-05-2025 CBC W Auto Differential panel - Blood CBC auto differential Lab Routine Daily for 5 Days starting 11/07/2024 until 11/11/2024, 3 completed [employer] Work Phone: Comment on above: Daily for 5 Days starting 11/07/2024 unt il 11/11/2024, 3 completed End: 11-11-2024 Comprehensive Metabolic Panel w/ Reflex to MG Comprehensive Metabolic Panel w/ Reflex to MG Lab Routine Daily for 5 Days starting 11/07/2024 until 11/11/2024, 3 completed [employer] Comment on above: Daily for 5 Days starting 11/07/2024 unt il 11/11/2024, [address] ABDOMEN PELVIS W IV CONTRAST Additional Contrast? None CT ABDOMEN PELVIS W IV CONTRAST Additional Contrast? None Imaging STAT 03/26/2020 3:01 PM [employer] End: 11-02-2025 EGD - THERAPEUTIC, EUS, OR TUBE INTERVENTIONS EGD - THERAPEUTIC, EUS, OR TUBE INTERVENTIONS Endoscopy Routine Chronic pancreatitis, unspecified pancreatitis type (HCC) Epigastric pain Loose stools Heartburn Exocrine pancreatic insufficiency (HCC) 1 Occurrences starting 11/02/2024 until 11/02/2025 [facility] Work Phone: Comment on above: 1 Occurrences starting 11/02/2024 until 11/02/2025 EKG 12 Lead EKG 12 Lead ECG Routine 01/07/2024 2:42 PM EDT [employer] Work Phone: IgG Subclasses IgG Subclasses A dd-On 05/14/2017 2:06 PM 33[facility] [facility] Initiate Oxygen Therapy Protocol Initiate Oxygen Therapy Protocol Respiratory Care Routine Daily until discontinued starting 08/22/2019 PrezacorJAMES Comment on above: Daily until discontinued starting 2019 Lipase Lipase Lab Routi ne Daily until discontinued starting 08/23/2019, 3 completed [employer] Comment on above: Daily until discontinued starting 2019, 3 completed End: 11-11-2024 Lipase [Enzymatic activity/volume] in Serum or Plasma Lipase Lab Routine Daily for 5 Days starting 11/07/2024 until 11/11/2024, 3 completed [employer] Comment on above: Daily for 5 Days starting 11/07/2024 unt il 11/11/2024, 3 completed Patient Education [facility] Work Phone: Patient referral [facility] Work Phone: End: 08-22-2019 Pulse Oximetry Spot Check Pulse Oximetry Spot Check Respiratory Care Routine One Time for 1 Occurrences starting 08/22/2019 until 08/22/2019 [facility] Comment on above: One Time for 1 Occurrences starting 08/07 until 08/22/2019 Screening colonoscopy SCREENING COLONOSCOPY GI/Bronch Routine Encounter for screening colonoscopy 01/28/2022 9:43 AM EST [facility] Screening colonoscopy SCREENING COLONOSCOPY GI/Bronch Routine Encounter for screening for malignant neoplasm of colon Ordered: 05/11/2023 [facility] Comment on above: Ordered: 05/11/2023 End: 04-07-2024 SPECIMEN REJECTION [facility] Comment on above: Once for 1 Occurrences starting 04/07/19 25 until 04/07/2024 End: 09-27-2024 Urinalysis with Microscopic Urinalysis with Microscopic Lab STAT One Time for 1 Occurrences starting 09/27/2024 until 09/27/2024 [facility] Comment on above: One Time for 1 Occurrences starting 09/07 until 09/27/2024 Immunizations Immunization Date Immunization Notes Care Provider Fa joy 12-23-2015 influenza, injectabl e, quadrivalent, contains preservative Sabrina Dee MD, MPH Work Phone: [facility] 12-23-2015 influenza virus vaccine, unspecified formulation Sabrina Dee MD, MPH Work Phone: [facility] 12-15-2014 influenza virus vaccine, unspecified formulation Sabrina Dee MD, MPH Work Phone: [facility] Payers Date Payer Category Payer Self-pay [id number] 2023 Private Health Insurance [id number]. [id number] 2022 Medicaid [id number] 2022 Medicaid [id number]. [id number]. [id number] 2019 Unknown [facility] MEDICA[facility] xxxxxxxxxxx 2019-Present [phone] CLAIMS DEPARTMENT [address] [place] [address] xxxxxxxxxxx [id number]. [id number] 2017 Unknown [id number] 2017 Unknown 1969 Unknown [id number] 2.16.840.1.058563.3.579.2. 900 1969 Unknown [id number] 2.16.840.1.774667.3.579.2. 900 1969 Unknown [id number] 2.16.840.1.039952.3.579.2. 900 1969 Unknown [id number] 2.16.840.1.769992.3.579.2. 900 1969 Unknown [id number] 2.16.840.1.456875.3.579.2. 900 1969 Unknown [id number] 2.16.840.1.744551.3.579.2. 593 1969 Unknown [id number] 2.16.840.1.542502.3.579.2. 593 1969 Unknown [id number] 2.16.840.1.232258.3.579.2. 593 1969 Unknown [id number] 2.16.840.1.808481.3.579.2. 593 1969 Unknown [id number] 2.16.840.1.357838.3.579.2. 593 1969 Unknown [id number] 2.16.840.1.126776.3.579.2. 593 1969 Unknown [id number] 2.16.840.1.459880.3.579.2. 593 1969 Unknown [id number] 2.16.840.1.483822.3.579.2. 593 1969 Unknown [id number] 2.16.840.1.557980.3.579.2. 593 1969 Unknown [id number] 2.16.840.1.236070.3.579.2. 593 1969 Unknown [id number] 2.16.840.1.303372.3.579.2. 593 1969 Unknown [id number] 2.16.840.1.220131.3.579.2. 593 1969 Unknown [id number] 2.16.840.1.150059.3.579.2. 593 1969 Unknown [id number] 2.16.840.1.481962.3.579.2. 593 1969 Unknown [id number] 2.16.840.1.068551.3.579.2. 594 1969 Unknown [id number] 2.16.840.1.521100.3.579.2. 594 1969 Unknown [id number] 2.16.840.1.440155.3.579.2. 594 1969 Unknown [id number] 2.16.840.1.900770.3.579.2. 727 1969 Unknown [id number] 2.16.840.1.728863.3.579.2. 727 1969 Unknown [id number] 2.16.840.1.218604.3.579.2. 727 1969 Unknown [id number] 2.16.840.1.230003.3.579.2. 727 1969 Unknown [id number] 2.16.840.1.842815.3.579.2. 727 1969 Unknown [id number] 2.16.840.1.231567.3.579.2. 727 1969 Unknown [id number] 2.16.840.1.707778.3.579.2. 173 1969 Unknown [id number] 2.16.840.1.829524.3.579.2. 173 1969 Unknown [id number] 2.16.840.1.360418.3.579.2. 173 1969 Unknown [id number] 2.16.840.1.841976.3.579.2. 173 1969 Unknown [id number] 2.16.840.1.100097.3.579.2. 173 1969 Unknown [id number] 2.16.840.1.816458.3.579.2. 173 1969 Unknown [id number] 2.16.840.1.822035.3.579.2. 727 1969 Unknown [id number] 2.16.840.1.917978.3.579.2. 1969 Unknown [id number] 2.16.840.1.983693.3.579.2. 7 1969 Unknown [id number] 2.16.840.1.932585.3.579.2. 1969 Unknown [id number] 2.16.840.1.880272.3.579.2. 727 1969 Unknown [id number] 2.16.840.1.046401.3.579.2. 6 1969 Unknown [id number] 2.16.840.1.873146.3.579.2. 1286 1969 Unknown [id number] 2.16.840.1.481522.3.579.2. 1285 1969 Unknown [id number] 2.16.840.1.055197.3.579.2. 6 1969 Unknown [id number] 2.16.840.1.875653.3.579.2. 1285 1969 Unknown [id number] 2.16.840.1.639779.3.579.2. 1285 1969 Unknown [id number] 2.16.840.1.287472.3.579.2. 1285 1969 Unknown [id number] 2.16.840.1.612482.3.579.2. 1285 1969 Unknown [id number] 2.16.840.1.628290.3.579.2. 1285 1969 Unknown [id number] 2.16.840.1.610403.3.579.2. 1285 1969 Unknown [id number] 2.16.840.1.414476.3.579.2. 1285 1969 Unknown [id number] 2.16.840.1.473825.3.579.2. 1285 1969 Unknown [id number] 2.16.840.1.781971.3.579.2. 6 1959 Medicaid [id number] 1959 Unknown [id number] 1.2.840.314751.1.13.239.2. 7.3.543807.315 Unknown [id number] 2.16.840.1.800527.3.579.2. 531 Unknown [id number] 2.16.840.1.038564.3.579.2. 531 Social History Date Type Detail Facility Start: 06-09-2017 End: 11-02-2024 Tobacco smoking status MSIS Current every day smoker [facility] End: 10-30-2020 History of tobacco use Cigarette Smoker [facility] Start: 06-09-2017 End: 11-02-2024 Cigarettes smoked current (pack per day) - Reported [facility] Start: 1970 Sex Assigned At Not on file [facility] Start: 08-22-2019 End: 11-08-2024 Alcohol intake Current non-drinker of alcohol (finding[place] [facility] Exposure to SARS-CoV-2 (event) [facility] [place] Start: 03-08-2018 End: 11-02-2024 Tobacco use and exposure Never used [facility] [place] Start: 07-24-2014 Tobacco Comment Smokes < 1/2 p pd, smoker for 30+ years [facility] Start: 07-24-2014 Alcohol Comment Prior heavy dr carrillo, quit 8 years ago [facility] Start: 08-12-2022 End: 11-02-2024 Sex Assigned At [employer] Other Start: 09-25-2021 End: 04-18-2023 Tobacco smoking status MSIS Smoker (finding) [facility] Start: 1970 Sex Assigned At Female F [facility] Start: 05-09-2016 Alcohol Comment been sober for 9 yea rs [facility] Start: 04-02-2023 Tobacco smoking status MSIS Current some day smoker [facility] Start: 08-08-2024 Gender identity Identifies as female gender (finding) [facility] How often to you hav e a drink containing alcohol? Never [employer] Start: 02-08-2012 How many standard drinks containing alcohol do you have on a typical day? Patient does not drink [facility] Start: 06-25-2022 End: 09-27-2024 Tobacco smoking status MSIS Ex-smoker [facility] Start: 04-11-2023 End: 11-17-2024 Alcohol intake Ex-drinker (finding) [facility] Start: 06-25-2022 Alcohol Comment Has not consum ed alcohol in 12 years [facility] Start: 04-18-2012 Sex Female (finding) [employer] Start: 08-08-2024 Sexual orientation Heterosexual (fin nayan) [employer] Start: 11-02-2024 Tobacco Comment [facility] In the past 12 months, was there a time when you were not able to pay the mortgage or rent on time? No [employer] (I/We) worried whether (my/our) food would run out before (I/we) got money to buy more. Never true [facility] NEGATED: Highlighted rowStart: JACLYN History of tobacco use Passive smoker [facility] Functional Status Date Assessment Result Facility 11-17-2024 Total score [AUDIT-C] 0 11/18/19 25 2:05 PM EDT Colin Guzman RN [facility] Clinical Notes 10-08-2019 to 12-13-2024 Mayra Santiago RN - 11/17/2024 3:24 PM Mayra Flynn RN - 11/17/2024 3:24 PM Colin Mendoza RN - 11/17/2024 2:08 PM Colin Mendoza RN - 11/17/2024 2:08 PM EDTPatient Instructions Note Date & Type Note Facility 12-13-2024 Note HNO ID: [id number] Author: LINDSEY WILLARD APRN.IT INTERN Service: ? Author Type: Nurse Practitioner Type: Progress Notes Filed: 12/13/2024 13:10 Note Text: NAME: Chioma Rainey AGE: [age] year old Follow up visit for pancreatitis. Last seen: 11/02/2024 HISTORY The patient is a 54-year-old female with chronic pancreatitis, presenting with persistent epigastric pain, nausea, vomiting, and significant unintentional weight loss. She reports constant, midline abdominal pain radiating to the left lower quadrant, currently rated as 6/10, which she considers an improvement compared to her baseline. She has had multiple recent ER visits and was hospitalized for 2 days, being discharged 2 days ago. She has experienced severe nausea and vomiting, with nearly all oral intake being emetogenic, including liquid nutritional supplements. This has led to a marked decrease in oral intake and a 22-lb unintentional weight loss over the past 4-5 months (from 135 lbs to 113 lbs), with 12 lbs lost in the past month alone. She has a history of cholecystectomy 10-12 years ago. MRI of the abdomen on 11/08 showed mild bile duct dilation, but the pancreas appeared normal. She has a history of a JG tube, which she reports was helpful, and a prior unsuccessful attempt at nasogastric tube feeding due to persistent emesis. She has also undergone multiple celiac plexus blocks, with the most recent providing no relief. She is currently taking Creon with meals, but has not been able to take it regularly due to minimal oral intake. She is taking amitriptyline 25 mg nightly and reports feeling well on this dose. She also takes Pepcid for frequent heartburn, but found Protonix ineffective. She denies marijuana use and alcohol consumption, and is currently smoking less than half a pack of cigarettes per day. PERTINENT PRIOR DIAGNOSTIC TESTING ED to Hospital Admission 12/09-12/11/2024 HOSPITAL COURSE: This is a 54-year-old female with remote history of alcohol use and chronic pancreatitis who presented to [facility] Main ED on 12/09 with progressively worsening epigastric pain and N/V x3 days. Was seen in emergency department 12/[address] scan with chronic findings but also a mucosal pancreatic wall thickening. She follows with [facility] GI outpatient and underwent a celiac plexus block 11/17 without any improvement of her pain. Returns back to the emergency department for significant pain and persistent vomiting. In ED, BP elevated but otherwise VSS. Lipase WNL. Labs notable for WBC 12.49 and creatinine slightly elevated from baseline at 1.0. Repeat CT abd/pelvis not performed as one done at OSH day prior (12/08). CT A/P: No evidence of acute pancreatitis. However, there is 1.9 cm focal mucosal soft tissue thickening at the ampulla of Vater. Further characterization with contrast-enhanced abdomen MRI and MRCP versus direct visualization is advised on nonemergent basis. Patient admitted to Hospital Medicine for further workup and management. Patient given IVF, pain control, and made NPO. Her diet was advanced as tolerated. Her nausea, vomiting, and pain improved. She was eager for discharge home on 12/11/2024. She has follow-up with her established GI team on 12/13/24. Discussed with patient to bring CT results and discuss with outpatient provider as she deferred additional imaging inpatient at this time. EGD w/ CPB Demetrius 11/17/2024 Findings: ENDOSCOPIC FINDING: : The examined esophagus [...] entire pancreas. - Celiac plexus block performed. [facility] 11/02/2024 IMPRESSION AND PLAN Chioma Rainey is a 54 year old female who presents today for consult for pancreatitis. She has past medical history of gallstones s/p cholecystectomy, anemia and chronic ETOH pancreatitis. 1. Chronic pancreatitis, unspecified pancreatitis type (HCC) (K86.1) 2. E (more content not included)... [facility] 12-11-2024 Note HNO ID: [id number] Author: OBINNA GIFFORD RPh Service: Pharmacy Author Type: Pharmacist Type: Plan of Care Filed: 12/11/2024 11:11 Note Text: DISCHARGE MEDICATION REVIEW BY PHARMACY Patient Name: Chioma Rainey Account #: Data Unavailable Admission Date: 12/09/2024 Date of Contact: December 11, 2024 Time of Contact: 11:10 AM Medication list was reviewed by a Pharmacist for drug interactions or drug related problems:Yes Below is a summary of pharmacist recommendations discussed with LIP: No recommendations at this time from discharge medication list. Obinna Gifford RPh Pager: [phone] 12/11/2024 11:10 AM Medication List START taking these medications acetaminophen 500 mg tablet Commonly known as: TYLENOL Take 2 tablets by mouth every 8 hours as needed for pain. ondansetron 4 mg tablet Commonly known as: ZOFRAN Take 1 tablet by mouth every 8 hours as needed for nausea/vomiting. oxyCODONE IR 5 mg immediate release tablet Commonly known as: ROXICODONE Take 1 tablet by mouth every 8 hours as needed for up to 3 days. CONTINUE taking these medications amitriptyline 25 mg tablet Commonly known as: ELAVIL Take 1 tablet by mouth daily at bedtime. CREON 24,000-76,000 -120,000 unit delayed release capsule Generic drug: sxpdio-wqnxkzqr-zxmlfkt Take 2 caps by mouth 3 times daily with meals and 1 cap with each snack. Take 1st cap before meal starts and the 2nd cap intermediate through. Max of 10 capsules per day. STOP taking these medications PERCOCET 5-325 mg tablet Generic drug: oxyCODONE-acetaminophen Where to Get Your Medications These medications were sent to [id number] - [place] [address] - [address] - [phone] [place] [address] ondansetron 4 mg tablet oxyCODONE IR 5 mg immediate release tablet You can get these medications from any pharmacy You don't need a prescription for these medications acetaminophen [address] [facility] 12-10-2024 Note HNO ID: [id number] Author: ALEXUS YOUNGBLOOD PA-C Service: Hospital Medicine Author Type: Physician Biomedical Electronics Technician Type: Progress Notes Filed: 12/10/2024 12:27 Note Text: DEPARTMENT OF HOSPITAL MEDICINE PROGRESS NOTE SERVICE DATE: 12/10/2024 SERVICE TIME: 12:22 PM Hospital Medicine/Primary Attending: Marianna John MD NIGHT AND WEEKEND COVERAGE: [facility] COVERAGE: Days: [phone], please page Alexus Youngblood for patient issues. Nights: [phone], please page Team GIM 2: G/H 8th floor: [address]; Non 8th floor [address] Subjective INTERVAL HPI: - patient resting in bed, reports improvement in pain. 5/10 currently in epigastric region, radiates to back - n/v improved. Has been tolerating sips of water. No chest pain, palpitations, shortness of breath - will advance diet to CLD - patient reports she would NOT want inpatient MRI to follow-up on CT findings from 12/08, since she just had one 11/08; recommend further discussing with established GI team outpatient Current Facility-Administered Medications Medication Dose Route Frequency trimethobenzamide 200 mg injection (TIGAN) 200 mg INTRAMUSCULAR q 6 H PRN lidocaine patch - REMOVE OTHER ONCE And lidocaine - VERIFY PATCH OTHER ONCE HYDROmorphone 0.5 mg injection (DILAUDID) 0.5 mg INTRAVENOUS q 6 H PRN dicyclomine 20 mg cap(s) (BENTYL) 20 mg ORAL AC and HS famotidine 20 mg injection (PEPCID) 20 mg INTRAVENOUS DAILY erllqo-cwhtdysk-gmtbarw 2 capsule cap(s) (CREON 24) 2 capsule ORAL TID w MEALS amitriptyline 25 mg tab(s) (ELAVIL) 25 mg ORAL AT BEDTIME acetaminophen 1,000 mg tab(s) (TYLENOL) 1,000 mg ORAL q 8 H NaCl 0.9% iv flush bag 20 mL INTRAVENOUS PRN lactated ringers iv infusion 100 mL/hr INTRAVENOUS CONTINUOUS ondansetron (PF) 4 mg injection (ZOFRAN) 4 mg INTRAVENOUS q 6 H PRN iv contrast (radiology procedure) INTRAVENOUS DIRECTED PRN pantoprazole DR 40 mg tab(s) (PROTONIX) 40 mg ORAL BID AC (0600/1600) Objective PHYSICAL EXAM: BP 113/69 Pulse 81 Temp (Src) 98 (Oral) Resp 16 SpO2 96% O2 Therapy: Room Air Physical Exam Performed General: Well-developed, well-nourished. Cooperative. Appears in no apparent distress. Skin: Intact without obvious rashes or lesions. HEENT: Normocephalic, atraumatic. Moist mucosa. Lungs: Clear to auscultation BL. Good diaphragmatic excursion. On RA Cardiac: Regular rate and rhythm. Abdomen: Soft, TTP of epigastric region. No distention, rebound, or guarding. Bowel sounds are normal. Extremities: No deformities or edema. Neuro: Sensation and strength grossly intact. Follows commands. Speech clear. AANDOx3. Lines, Drains, and Airways Line Duration Peripheral 12/09/24 1612 Left Antecubital 20 Gauge <1 day Reviewed lines and needs to be continued: REASONS: Difficulty in obtaining/maintaining access DATA: Diagnostic tests reviewed for today's visit: Most recent labs Most recent imaging HOSPITAL COURSE: Chioma Rainey is a 54-year-old female with remote history of alcohol use and chronic pancreatitis who presented to [facility] Main ED on 12/09 with progressively worsening epigastric pain and N/V x3 days. She was admitted to Hospital Medicine for further workup and management. Assessment AND Plan Acute on chronic pancreatitis (HCC) Present on Admission: Yes - Remote EtOH use, chronic pancreatitis, s/p cholecystectomy (2011) - Recurrent symptoms with most recent CT AP 12/08 showing 1.9cm focal mucosal soft tissue thickening at the ampulla of Vater. - Lipase and Amylase normal. - Prior MRI Abdomen 11/08 showed stable appearance of abdomen - Denies current alcohol consumption Plan: - IVF hydration and symptomatic support - CLD, advance as toelrated - Pain control with Tylenol, oxycodone; IV Dilaudid for BTP only - Protonix, Famotidine, Bentyl, Creon - Cont home Amitriptyline which pt uses for preventing frequency of flares and combating depressive symptoms - Repeat MRCP deferred to outpatient setting per pt preference Discussed code status with patient, requests FULL CODE Medication and Non-Pharmacologic VTE Prophylaxis/Anticoagulants 12/10/24 0357 activity - mobilize patient (ky,dc) VTE Prophylaxis: VTE prophylaxis appropriate Disposition: To be determined Plan of care discussed with Provider, RN, Patient Plan communicated to: Significant Other at bedside SIGNATURE: Alexus Youngblood PA-C PATIENT NAME: Chioma Rainey DATE: December 10, 2024 TIME: 12:[address] [facility] 11-29-2024 Note Discharge Summary Admission and Discharge Information Admit [...] with nausea. She was subsequently admitted to [facility] with acute on chronic pancreatitis with leukocytosis. [...] with nursing staff, case management. Discharge medications: Hitterdal 325/5 mg every 6 hours as needed. [...] meal (11/29/24 09:02:00) Discharge Medication List Prescriptions Hitterdal 325 mg-5 mg oral tablet, 1 tab(s), [...] [place] Additional Instructions: Patient Education Acute Pancreatitis, [id number]-[id number] [facility] Comment on above: Result Comment: Elec tronically Signed By: SANDRA ALEXANDER, Tate\.br\Date and Time Signed: 11/29/24 09:57 EDT 11-28-2024 Note Progress Note-Physic malena Assessment/Plan 54-year-old female former chronic alcohol drinker [...] clear diet and advance as tolerated. Ordered: [facility] Care/Day Moderate 35 Minutes 86876 2. Leukocytosis (D72.829: Elevated white blood cell count, unspecified) Resolved. [facility] Moderate 35 Minutes 95428 3. History of alcohol use (Z87.898: Personal history of other specified conditions) Historical. Patient has been sober for 12 to 13 years. [facility] Moderate 35 Minutes 19042 4. Smoker (F17.200: Nicotine dependence, unspecified, uncomplicated) Recommend cessation. Disposition: Home soon in AM. I discussed the diagnosis and plan of care with the patient at the bedside. Moderate level of MDM based on addressing above issues. This documentation was transcribed using voice recognition software. Several attempts were made to ensure accuracy. However inadvertent computerized oven technician errors may be present. Tate Guido. Hospitalist. Ordered: [facility] Hospital Care/Day Moderate 35 Minutes [id number] Orders: HYDROmorphone, 1 mg = 1 mL, [...] 99 mg/dL (11/28/24 06:25:00) BUN: 5 mg/dL (11/28/24:25:00) Creatinine: 0.7 mg/dL (11/28/24 06:25:00) eGFR: 102 mL/min/1.73 m2 (11/28/24 06:25:00) BUN/Creat Ratio: 7 Low (11/28/24:25:00) Sodium Lvl: 138 mmol/L (11/28/24 06:25:00) Potassium Lvl: 3.9 mmol/L (11/28/24 06:25:00) Chloride: 110 mmol/L (11/28/24 06:25:00) CO2: 24 mmol/L (11/28/24 06:25:00) AGAP: 8 mEq/L (11/28/24 06:25:00) Calcium Lvl: 8.5 mg/dL Low (11/28/24:25:00) Lipase Lvl: 102 unit/L High (11/28/24 06:25:00) [...] Daily ondansetron 4 mg Dis Tab, 4 (more content not included)... [facility] Comment on above: Result Comment: Elec tronically Signed By: SANDRA ALEXANDER, Tate\.br\Date and Time Signed: 11/28/24 10:41 EDT 11-28-2024 Note Marlyn Understands Medication Education Yes Marlyn Medication Education HYDROmorphone [facility] 11-27-2024 Note Progress Note-Physic malena Assessment/Plan 54-year-old female admitted for acute on chronic pancreatitis with leukocytosis. She has a history of alcohol use but not for 12-13 years chronic pancreatitis. 1. Acute on chronic pancreatitis (K85.90: Acute pancreatitis without necrosis or infection, unspecified) Known history of chronic pancreatitis to alcohol abuse [facility] November 09, 2023 with no acute abnormalities She also had an endoscopic nerve block by in [place] in November 17 Lipase trending down to 159 Continue n.p.o. except for ice chips Fluid hydration Pain control and antiemetics as needed Ordered: [facility] Hospital Care/Day Moderate 35 Minutes [id number] 2. Leukocytosis (D72.829: Elevated white blood cell count, unspecified) Resolved; white count at 8.2 with no shift (was 15.3 on admission) Ordered: [facility] Care/Day Moderate 35 Minutes 44262 3. History of alcohol use (Z87.898: Personal history of other specified conditions) Clean and sober for 12 to 13 years Ordered: [facility] Care/Day Moderate 35 Minutes 42957 4. Smoker (F17.200: Nicotine dependence, unspecified, uncomplicated) Recommend cessation Ordered: [facility] Care/Day Moderate 35 Minutes [id number] Orders: Basic Metabolic Panel CBC w/ Indices [...] Tab, 25 mg= 1 tab(s), Oral, TID [facility] Comment on above: Result Comment: Elec tronically Signed By: Chi Hathaway DO\Date and Time Signed: 11/27/24 13:15 EDT 11-26-2024 Note Progress Note-Physic malena Assessment/Plan 54-year-old female admitted for acute on chronic pancreatitis with leukocytosis. She has a history of alcohol use but not for 12-13 years chronic pancreatitis. 1. Acute on chronic pancreatitis (K85.90: Acute pancreatitis without necrosis or infection, unspecified) Known history of chronic pancreatitis to alcohol abuse [facility] November 09, 2023 with no acute abnormalities She also had an endoscopic nerve block by in [place] in November 17 Lipase trending down to [...] 04:55:00) Lymph Auto: 39.1 % (11/26/24 04:55:00) Harris Auto: 9.7 % (11/26/24 04:55:00) Eos Auto: 1.7 % (11/26/24 04:55:00) Basophil Auto: 0.6 % (11/26/24 04:55:00) Neutro Absolute: 3.8 E9/L (11/26/24 04:55:00) Lymph Absolute: 3 E9/L (11/26/24 04:55:00) Harris Absolute: 0.7 E9/L (11/26/24 04:55:00) Eos Absolute: [...] amitriptyline 25 mg Tab, 25 mg= 1 tab(s) (more content not included)... [facility] Comment on above: Result Comment: Elec tronically Signed By: Chi Hathaway DO.br\Date and Time Signed: 11/26/24 16:10 EDT 11-25-2024 Note History and Physical Basic Information Admit Date/Time:11/25/2024 [...] reports being hospitalized a month ago at [facility] for 4 days. She had a MRCP at that time which showed no acute abnormalities (I was able to review the report in outside records). She also follows with a GI doc in [place] and had an endoscopic nerve block on [...] 22:06:00) Lymph Auto: 18.2 % (11/24/24 22:06:00) Harris Auto: 10.5 % (11/24/24 22:06:00) Eos Auto: 0.6 % (11/24/24 22:06:00) Basophil Auto: 0.6 % (11/24/24 22:06:00) Neutro Absolute: 10 E9/L High (11/24/24 22:06:00) Lymph Absolute: 2.6 E9/L (11/24/24 22:06:00) Harris Absolute: 1.5 E9/L High (11/24/24 22:06:00) Eos Absolute: 0.1 E9/L (11/24/24 22:06:00) Basophil Absolute: 0.1 E9/L (11/24/24 22:06:00) Glucose Lvl: 109 mg/dL (11/24/24 22:06:00) BUN: 12 mg/dL (11/24/24 22:06:00) Creatinine: 0.9 mg/dL (11/24/24:06:00) eGFR: 75 mL/min/1.73 m2 (11/24/24:06:00) BUN/Creat Ratio: 13 (11/24/24 22:06:00) Sodium Lvl: 139 mmol/L (11/24/24 22:06:00) Potassium Lvl: 3.8 mmol/L (11/24/24 22:06:00) Chloride: 100 mmol/L Low (11/24/24 22:06:00) CO2: 30 mmol/L (11/24/24 22:06:00) AGAP: 13 mEq/L (11/24/24:06:00) Calcium Lvl: 10.7 mg/dL (11/24/24 22:06:00) Alk Phos: 169 Int._Unit/L High (11/24/24 22:06:00) ALT: 12 Int._Unit/L (11/24/24 22:06:00) AST: 19 Int._Unit/L (11/24/24 22:06:00) Total [...] hx ETOH abuse. Had an MRCP at [facility] on 11/08/24 with no acute abnormalities present. Therefore did not feel further imaging needed at this time unless patient fails to improve as expected. Lipase 303 Ice Chips for now until vomiting resolved NS at 150 cc/hr Ordered Dilaudid IV prn pain and Zofran prn n/v s/p endoscopic nerve block by GI in [place] on 11/17. 2. Leukocytosis (D72.829: Elevated white [...] History Ongoing Smoker Historical No qualifying data Medicati (more content not included)... [facility] Comment on above: Result Comment: Elec tronically Signed By: Chi Hathaway DO.higinio\Date and Time Signed: 11/25/24 15:38 EDT 11-17-2024 Nurse Note AMBULATORY PATIENT EDUCATION NOTE TOPIC: GI PROCEDURES: [...] MATERIAL: Procedure Discharge Instructions REFERRAL (RECOMMENDATION): None [facility] 11-17-2024 Nurse Note AMBULATORY PATIENT EDUCATION NOTE TOPIC: GI PROCEDURES: [...] MATERIAL: Procedure Discharge Instructions REFERRAL (RECOMMENDATION): None PRE OP LEARNING ASSESSMENT PROCEDURE/SURGERY: GI PROCEDURES: EGD and ESU READINESS TO LEARN COGNITIVE ABILITY: Alert and oriented MOTIVATION TO LEARN: Eager FAMILY SUPPORT: High - Very involved in pt care PATIENT LEARNS BEST BY: Individual Instruction Verbal Instruction FACTORS AFFECTING LEARNING: None PHYSICAL LIMITATIONS AFFECTING LEARNING: None Electronically Signed By: Colin Guzman RN In Department: GASTROENTEROLOGY documented in this encounter [facility] 11-17-2024 Note Q3 Patient Name: Chioma Rainey Procedure Date: 11/17/2024 2:39 PM Date of : 1970 Admit Type: Outpatient Age: 54 Gender: Female Note Status: Finalized Attending MD: Josse Romo MD, [id number] Procedure: Upper EUS Indications: Celiac plexus block for visceral abdominal pain Providers: Josse Romo MD Patient Profile: This is a 54 [...] report has been signed electronically by Josse Romo MD Number of Addenda: 0 Note Initiated On: 11/17/2024 2:39 PM [facility] 11-17-2024 Note Q3 Patient Name: Chioma Rainey Procedure Date: 11/17/2024 2:39 PM Date of : 1970 Admit Type: Outpatient Age: 54 Gender: Female Note Status: Finalized Attending MD: Josse Romo MD, [id number] Procedure: Upper EUS Indications: Celiac plexus block for visceral abdominal pain Providers: Josse Romo MD Patient Profile: This is a 54 [...] report has been signed electronically by Josse Romo MD Number of Addenda: 0 Note Initiated On: 11/17/2024 2:[address] [facility] 11-17-2024 Nurse Note PRE OP LEARNING ASSESSMENT PROCEDURE/SURGERY: GI PROCEDURES: EGD and ESU READINESS TO LEARN COGNITIVE ABILITY: Alert and oriented MOTIVATION TO LEARN: Eager FAMILY SUPPORT: High - Very involved in pt care PATIENT LEARNS BEST BY: Individual Instruction Verbal Instruction FACTORS AFFECTING LEARNING: None PHYSICAL LIMITATIONS AFFECTING LEARNING: None Electronically Signed By: Colin Guzman RN In Department: GASTROENTEROLOGY [facility] 11-09-2024 History of Present illness Narrative Pt is leaving the floor at this time with family. Pt leaving AMA. Pt called out at this time stating they would like to leave AMA. Fire Officer to bedside. AMA forms reviewed and signed by pt. Fire Officer reviewed potential complications of leaving AMA as described on forms. IV removed. Pt is getting dressed. Family will be driving pt home. Patient was able to get some good sleep throughout the night post ativan. Patient was updated that patient's diet has increased to clear liquid diet. Patient is pleased. Patient denies any needs before science writer leaving shift. Fire Officer spoke with Obinna MORALEZ regarding patient's anxiousness and anxiety attack earlier. Fire Officer informed NAOMY that patient was requesting something to at least help patient get some sleep. Obinna MORALEZ to put in a one time dose of IV ativan. Fire Officer came to bedside to administer night time medication and give prn pain medications. Patient is tearful, anxious and very upset at this time. Fire Officer spent a good 30 minutes at bedside with patient as she vented. Patient is overwhelmed and upset over all the things going on right now. Patient states she feels like she is trying to make changes but feels as if it doesn't make any difference. Patient is not understanding her plan of care or what is currently medically going on. She expresses frustration about not understanding what we are talking about and is ready to just leave and go home. Fire Officer gave emotional support to patient, giving words of reassurance and understanding as well as expressed sympathy as well as solutions for patient. Fire Officer apologized to patient for not coming understanding what is going on. Fire Officer educated patient on pancreatitis breaking it down to the simplest of terms and what we are currently doing to help her situation. Fire Officer educated patient on the importance of bowel rest will help with patient's ongoing issue right now. Fire Officer explained the process of getting over her flare up and how it is going to take time and cannot happen overnight. Fire Officer also went over labs and broken them down to elementary school level terms so patient could understand the meaning as patient stated she was so confused on the number that were getting thrown around. Fire Officer continued to let patient vent more and science writer answered patient's questions as best as science writer was able to within scope. Fire Officer instructed to patient that science writer will talk to Obinna MORALEZ about getting something for sleep as patient states I just want to stop hurting and I just want to be able to sleep. After everything and the conversation had ended, patient had felt more better and was no more talking about leaving AMA. Fire Officer will speak to Obinna MORALEZ and update patient with answer. Patient was appreciative. Progress Note SUBJECTIVE: Patient seen for f/u of Acute on chronic pancreatitis (HCC). She resting in bed no distress. Stated she had a rough night with some vomiting. Continues with some pain. No recent MRCP done ROS: Constitutional: negative for fevers, and negative for chills. Respiratory: negative for shortness of breath, negative for cough, and negative for wheezing Cardiovascular: negative for chest pain, and negative for palpitations Gastrointestinal: positive for abdominal pain, positive for nausea,positive for vomiting, negative for diarrhea, and negative for constipation All other systems were reviewed with the patient and are negative unless otherwise stated in HPI OBJECTIVE: Vitals: Vitals: 11/08/24 0715 BP: 127/76 Pulse: 83 Resp: 18 Temp: 96.9 F (36.1 C) SpO2: 96% Weight - Scale: 55 kg (121 lb 4.8 oz) Height: 157.5 cm (5' 2 ) Weight Wt Readings from Last 3 Encounters: 11/08/24 55 kg (121 lb 4.8 oz) 09/20/24 56.7 kg (125 lb) 08/08/24 56.7 kg (125 lb) Body mass index is 22.19 kg/m . 24HR INTAKE/OUTPUT: Intake/Output Summary (Last 24 hours) at 11/08/2024 0800 Last data filed at 11/08/2024 0730 Gross per 24 hour Intake 3341.35 ml Output 1000 ml Net 2341.35 ml Exam: GEN: Awake, alert and oriented x3. EYES: EOMI, pupils equal NECK: Supple. No lymphadenopathy. No carotid bruit CVS: regular rate and rhythm, no audible murmur PULM: CTA, no wheezes, rales or rhonchi, no acute respiratory distress ABD: Bowels sounds hypoactive. Abdomen is soft. No distention. RUQ, epigastric tenderness to palpation. EXT: no edema bilaterally . No calf tenderness. NEURO: Moves all extremities. Motor and sensory are grossly intact SKIN: No rashes. No skin lesions. Diagnostic Data: Complete Blood Count: Recent Labs 11/06/24193311/07/2455411/08/24 0545 WBC 7.8 7.1 5.8 RBC 4.41 3.91* 3.61* HGB 14.5 12.9 11.9 HCT 43.1 39.3 35.6* MCV 97.7 100.5 98.6 MCH 32.9 33.0 33.0 MCHC 33.6 32.8 33.4 RDW 12.2 12.7 12.5 PLT 224 177 153 MPV 9.5 10.4 9.8 Last 3 Blood Glucose: Recent Labs 11/06/24193311/07/24 0555 11/08/24 0545 GLUCOSE 97 92 96 Comprehensive Metabolic Profile: Recent Labs 11/06/24193311/07/2455 11/08/24 0545 NA 140 139 139 K 3.7 4.5 4.2 CL 104 106 107 CO2 24 23 21 BUN 7 6 4* CREATININE 0.8 0.8 0.8 GLUCOSE 97 92 96 CALCIUM 10.4 9.1 9.0 BILITOT <0.2 0.3 <0.2 ALKPHOS 145* 143* 203* AST 26 145* 171* ALT 13 42* 126* Latest Reference Range & Units 11/06/24 19:34 11/07/24 05:55 11/08/24 05:45 Lipase 13 - 60 U/L 247 (H) 285 (H) 30 (H): Data is abnormally high Urinalysis: Lab Results Component Value Date/Time NITRU NEGATIVE 09/20/2024 06:31 PM COLORU Yellow 09/20/2024 06:31 PM PHUR 6.0 09/20/2024 06:31 PM PHUR 5.5 03/26/2020 01:15 PM WBCUA None 09/20/2024 06:31 PM RBCUA None 09/20/2024 06:31 PM MUCUS TRACE 08/08/2024 07:40 PM TRICHOMONAS NOT REPORTED 08/22/2019 02:05 PM YEAST NOT REPORTED 08/22/2019 02:05 PM BACTERIA 2+ 09/20/2024 06:31 PM LEUKOCYTESUR NEGATIVE 09/20/2024 06:31 PM UROBILINOGEN Normal 09/20/2024 06:31 PM BILIRUBINUR NEGATIVE 09/20/2024 06:31 PM GLUCOSEU NEGATIVE 09/20/2024 06:31 PM KETUA NEGATIVE 09/20/2024 06:31 PM AMORPHOUS TRACE 08/08/2024 07:40 PM HgBA1c: No results found for: LABA1C Lactic Acid: Lab Results Component Value Date/Time LACTA 1.0 09/27/2024 11:50 AM LACTA 1.2 09/20/2024 06:52 PM LACTA 1.2 08/08/2024 07:10 PM Results No results found for the last 336 hours. Radiology/Imaging: No orders to display ASSESSMENT / PLAN: MEDICAL DECISION MAKING: Primary Problem(s): Acute on chronic pancreatitis (HCC) Differential diagnoses: Acute on chronic pancreatitis Condition is a chronic illness with exacerbation, progression or side effects of treatment Condition is stable Treatment plan: Monitor labs replace electrolytes Trend lipase- improving N.p.o. Ambulate Imaging: MRCP ordered today - elevating LFTs Medications: IV fluids IV Pepcid IV Dilaudid Will resume Creon and Elavil when taking p.o. Medication Monitoring / High Risk Medications: none Nutrition status: at risk for malnutrition Professor Of Mathematics consult initiated I/O Daily weight Monitor Daily intake Nutritional Supplements as tolerated MALNUTRITION ASSESSMENT AND PLAN The following was documented by the Dietitian: Malnutrition Assessment Context of Malnutrition: Chronic Illness (11/07/241041) Chronic Illness - Energy Intake : Mild decrease in energy intake (4 days prior to admission) (11/07/241041) Chronic Illness - Weight Loss : No weight loss (11/07/241041) Chronic Illness - Body Fat Loss: No body fat loss (11/07/241041) Chronic Illness - Muscle Mass Loss: No muscle mass loss (11/07/241041) Chronic Illness - Fluid Accumulation : No fluid accumulation (11/07/241041) Chronic Illness - Home Health Clinical Supervisor Strength: Not Performed (11/07/241041) Chronic Illness - Malnutrition Score: 0 (11/07/241041) Malnutrition Status: At risk for malnutrition (11/07/241041) I agree with the dietitian's malnutrition assessment. Medical Nutrition Therapy: continue current nutrition therapy [facility] Prophylaxis: DVT: SCD's Stress Ulcer: H2 [place] Disposition: Shared decision making: All test results, treatment options and disposition options were discussed with the patient today Social determinants of health that may impact management: none Code status: Full Code Disposition: Discharge plan is pending [facility] Advanced Care Planning documentation: [x] I have confirmed that the patient's Advance Care Plan is present, Code Status is documented, or surrogate decision maker is listed in the patient's medical record [If yes , STOP HERE] [] The patient's Advance Care Plan is NOT present because: [] I confirmed today that the patient does not wish or was not able to name a surrogate decision maker or provide and advance care plan. [] Hospice care is currently being provided or has been provided within the calendar year. [] I did NOT confirm today the presence of an Advance Care Plan or surrogate decision maker documented within the patient's medical record. [DOES NOT SATISFY [facility] PERFORMANCE] ALEA Bowman CNP , ALEA BILLING CUSTOMER SERVICE REPRESENTATIVE-C Hospitalist Medicine 11/08/2024, 8:00 AM Cosigned by Raji Gilliam MD at 11/08/2024 12:47 PM EDT Associated attestation - Raji Gilliam MD - 11/08/2024 12:47 PM EDT Raji Gilliam M.D. Internal Medicine PA/BILLING CUSTOMER SERVICE REPRESENTATIVE Attestation Note Patient: Chioma Arciniega Date of Admission: 11/06/2024 6:24 PM Date of Evaluation: 11/08/2024 I personally evaluated and examined the patient [id number] in conjunction with the PA/BILLING CUSTOMER SERVICE REPRESENTATIVE and agree with the management and dispostition of the patient. Please see the PA/BILLING CUSTOMER SERVICE REPRESENTATIVE's note for full details. My garcia findings are: SUBJECTIVE: Chioma Arciniega is a 54 y.o. female who was seen along with Carley Camara CNP and Lata Ponce from Case Management on team round for follow up of Acute on chronic pancreatitis (HCC). She is not feeling any better and continues to c/o epigastric pain. She had some vomiting last evening as well. OBJECTIVE: Vitals: Temp: 96.9 F (36.1 C) BP: 127/76 Respirations: 18 Pulse: 83 SpO2: 96 % Weight Wt Readings from Last 3 Encounters: 11/08/24 55 kg (121 lb 4.8 oz) 09/20/24 56.7 kg (125 lb) 08/08/24 56.7 kg (125 lb) Body mass index is 22.19 kg/m . 24HR INTAKE/OUTPUT: Intake/Output Summary (Last 24 hours) at 11/08/2024 1232 Last data filed at 11/08/2024 0730 Gross per 24 hour Intake 3341.35 ml Output 600 ml Net 2741.35 ml Exam: GEN: Awake, alert and oriented x 3. EYES: EOMI, pupils equal NECK: Supple. No lymphadenopathy. No carotid bruit CVS: regular rate and rhythm, no audible murmur PULM: CTA, no wheezes, rales or rhonchi, no acute respiratory distress ABD: Bowels sounds normal. Abdomen is soft. No distention. epigastric tenderness to palpation. EXT: no edema bilaterally . No calf tenderness. NEURO: Moves all extremities. Motor and sensory are grossly intact SKIN: No rashes. No skin lesions. DATA: Complete Blood Count: Recent Labs 11/06/24193311/07/2455 11/08/24 0545 WBC 7.8 7.1 5.8 RBC 4.41 3.91* 3.61* HGB 14.5 12.9 11.9 HCT 43.1 39.3 35.6* MCV 97.7 100.5 98.6 RDW 12.2 12.7 12.5 PLT 224 177 153 Recent Labs 11/06/24193311/07/2455 11/08/24 0545 NEUTROABS 4.97 4.22 2.91 LYMPHOPCT 21* 27 29 LYMPHSABS 1.66 1.93 1.70 MONOPCT 12 11 17* BASOPCT 1 1 1 IMMGRAN 0 0 0 CMP: Recent Labs 11/06/24193311/07/2455 11/08/24 0545 NA 140 139 139 K 3.7 4.5 4.2 CL 104 106 107 CO2 24 23 21 BUN 7 6 4* CREATININE 0.8 0.8 0.8 GLUCOSE 97 92 96 CALCIUM 10.4 9.1 9.0 BILITOT <0.2 0.3 <0.2 ALKPHOS 145* 143* 203* AST 26 145* 171* ALT 13 42* 126* Microbiology / Cultures: Results No results found for the last 336 hours. Imaging Data: No results found. ASSESSMENT: Principal Problem: Acute on chronic pancreatitis PLAN: I agree with the assessment, plan and medical decision making documentation as outlined by APC: Treatment plan: NPO Trend Lipase Encouraged ambulation Imaging: MRCP ordered Medications Continue Dilaudid for pain control Continue IVFs Will resume Creon and Elavil when tolerating PO Nutrition status: at risk for malnutrition due to current illness Professor Of Mathematics consult appreciated Monitor daily weights Monitor daily I/O's Medication monitoring / High risk medications: Parenteral administration of controlled substance(s) requiring close monitoring Disposition: Discharge plan is pending [facility] VISIT, PHYSICIAN ATTESTATION: [id number] I personally performed a substantive part of the MDM during the patient's visit. I personally evaluated and examined the patient. I personally made or approved the documented management plan and acknowledge its risk of complications. Test interpretation: My independent EKG interpretation: Normal sinus rhythm with normal axis and intervals, no ST segment changes My independent imaging interpretation: not applicable Management and/or test interpretation discussed with NAOMY Valdovinos MD , MJayla. 11/08/2024 12:32 PM Fire Officer to bedside to complete morning assessment. Upon entry to room, pt resting in bed, respirations even while on room air. Vitals obtained and assessment completed, see flow sheet for details. Call light in reach. Care ongoing. Pt called out for assistance with IV. New transparent dressing placed. IV is still patent, with good blood return. IV fluids continued as ordered. Care on-going. Fire Officer at bedside for shift assessment. PT A&O x4, they are able to answer questions and follow commands appropriately. Vitals and assessment completed as charted, see flowsheets. PT denies any other needs at this time and is resting comfortably. Call light in reach, bed in the lowest position and locked, care on-going. Comprehensive Nutrition Assessment Type and Reason for Visit: Initial Nutrition Recommendations/Plan: Continue NPO diet. Progress to a low fat easy to chew diet when medically feasible. Malnutrition Assessment: Malnutrition Status: At risk for malnutrition (11/07/24 1042) Context: Chronic Illness Findings of the 6 clinical characteristics of malnutrition: Energy Intake: Mild decrease in energy intake (4 days prior to admission) Weight Loss: No weight loss Body Fat Loss: No body fat loss Muscle Mass Loss: No muscle mass loss Fluid Accumulation: No fluid accumulation Home Health Clinical Supervisor Strength: Not Performed Nutrition Assessment: Inadequate oral intakes r/t altered GI function aeb NPO, nausea, GI abnormality lipase 285. Pt with recurrent pancreatitis. Follows GI in [place] and [place]. Pt states she has been dealing with this for 16 years, declined diet education. c/o continued nausea. Needs easy to chew low fat diet when advanced. Nutrition Related Findings: active bowel sounds, no edema Wound Type: None Current Nutrition Intake & Therapies: Average Meal Intake: NPO Average Supplements Intake: NPO Diet NPO Anthropometric Measures: Height: 157.5 cm (5' 2 ) Cutler Body Weight (IBW): 110 lbs (50 kg) Admission Body Weight: 54.9 kg (121 lb) Current Body Weight: 54.9 kg (121 lb 0.5 oz), 110 % IBW. Weight Source: Bed scale Current BMI (kg/m2): 22.1 Usual Body Weight: 54.4 kg (120 lb) (01/07/24) % Weight Change (Calculated): 0.9 Weight Adjustment For: No Adjustment BMI Categories: Normal Weight (BMI 18.5-24.9) Estimated Daily Nutrient Needs: Energy Requirements Based On: Kcal/kg Weight Used for Energy Requirements: Current Energy (kcal/day): 6412-8003 (25-28/kg) Weight Used for Protein Requirements: Current Protein (g/day): 66-77g (1.2-1.4g/kg) Method Used for Fluid Requirements: 1 ml/kcal Fluid (ml/day): 1,500 ml Hematology: Recent Labs 11/06/24193311/07/24 0555 WBC 7.8 7.1 HGB 14.5 12.9 HCT 43.1 39.3 Chemistry: Recent Labs 11/06/24193311/07/24 0555 NA 140 139 K 3.7 4.5 CL 104 106 CO2 24 23 GLUCOSE 97 92 BUN 7 6 CREATININE 0.8 0.8 CALCIUM 10.4 9.1 Recent Labs 11/06/24 1934 11/07/24 0555 AST 26 145* ALT 13 42* ALKPHOS 145* 143* BILITOT <0.2 0.3 LIPASE 247* 285* No results found for: VITD25 Nutrition Diagnosis: Inadequate oral intake related to altered GI function as evidenced by NPO or clear liquid status due to medical condition, nausea, GI abnormality, lab values Nutrition Interventions: Food and/or Nutrient Delivery: Continue NPO Nutrition Education/Counseling: Education/Counseling declined Coordination of Nutrition Care: Continue to monitor while inpatient Plan of Care discussed with: Patient Goals: Goals: Initiate PO diet Type of Goal: New goal Previous Goal Met: New Goal Nutrition Monitoring and Evaluation: Behavioral-Environmental Outcomes: None Identified Food/Nutrient Intake Outcomes: Diet Advancement/Tolerance Physical Signs/Symptoms Outcomes: Biochemical Data, Weight, GI Status, Nausea or Vomiting Discharge Planning: Too soon to determine [address]ANINE [address], ERIN Contact: [phone] Medicated for nausea and pain at this time per pt request, see MAR. Encouraged pt to ambulate in hallway today, she states she will when her comes later. Vitals and assessment completed at this time. Pt resting in bed. A/o x4. Medicated with dilaudid at shift change for mid/upper/right abdominal pain. Pt reports improvement in pain. Reports mild nausea. Denies diarrhea. Denies other symptoms. Independent in room. Call light within reach. Pt NPO. EKG completed and placed in red patient folder Pt arrived to [facility] via wheelchair from ED. Pt able to ambulate from wheelchair to bed without assistance. Pt alert and oriented x4, vitals and assessment completed as charted. Pt rates 6/10 pain to abdomen at this time. Pt does not appear to be in any distress at this time, FLACC score 0. Pt denies any current needs at this time, call light within reach, care ongoing. documented in this encounter [facility] 11-02-2024 Instructions Lindsey Willard APRN.IT INTERN - 11/02/2024 1:26 PM EDT We discussed your chronic pancreatitis: - You experience frequent flare-ups, sometimes multiple times a month, with symptoms including upper abdominal pain, nausea, diarrhea, and occasional vomiting. - I will restart you on Creon to help with digestion and reduce symptoms. Take 2 capsules with each meal (breakfast, lunch, and dinner) and 1 capsule with snacks. Take the Creon immediately before eating. - I will also restart you on Elavil (amitriptyline) 25 mg at bedtime to help reduce the frequency of flare-ups. This has been sent to your pharmacy ([facility] in [place], [place]) with a 90-day supply and 3 refills. - Continue avoiding greasy or heavy foods, as they may worsen your symptoms. Follow a well-balanced, low-fat diet with plenty of fruits and vegetables. - If your symptoms worsen or do not improve with these medications, please let me know. We discussed your history of esophageal narrowing and heartburn: - You previously had a banding procedure to address esophageal narrowing, which has improved your swallowing. - Continue taking Pepcid as needed for heartburn. If you find it is not effective, we can discuss stronger options. We discussed your smoking history: - Smoking can worsen chronic pancreatitis and may contribute to your symptoms. I encourage you to consider quitting smoking, as it could improve your condition. We discussed pain management options: - You are interested in another celiac plexus block for pain relief. I will arrange for this procedure to be done with endoscopic ultrasound for better visualization. This will also provide detailed imaging of your pancreas, liver, and bile ducts. - If the pain blocks become less effective over time, we can explore a referral to pain management for additional treatment options. Follow-Up Plan: - Continue with your GI doctor as planned, with your next appointment at the end of November. - If your symptoms persist or worsen despite the current treatment plan, please contact our office. - Let us know if you experience any new or concerning symptoms, such as significant weight loss, blood in your stool, or worsening pain. Medications Ordered: - Creon: 2 capsules with meals, 1 capsule with snacks. - Elavil (amitriptyline): 25 mg at bedtime. Please reach out if you have any questions or concerns about your care plan. Important Information About Exocrine Pancreatic Insufficiency (EPI) What is EPI? EPI is a long -lasting medical condition that affects your pancreas. When you have EPI, your pancreas doesn't make enough proteins, called enzymes. This means your pancreas can't break down the food you eat. As a result, EPI upsets the way your body digests food and causes stomach and bowel problems. Who Gets EPI? EPI is related to several medical conditions/surgical procedures that affect the pancreas. It can develop in some people who have: Chronic pancreatitis (swelling of the pancreas that lasts a long time) Cystic fibrosis Pancreatic cancer Pancreatectomy (an operation to remove all or part of the pancreas) Gastric surgery Blockage of the biliary or pancreatic duct Diabetes (type 1 and type 3C) How Does EPI Affect the Pancreas? When you have EPI, your pancreas doesn't make enough enzymes. This means your pancreas can't break down and absorb nutrients, like fat, protein, and carbohydrates, from the food you eat, which can cause stomach and bowel problems. You may find that you have diarrhea often, stools that are oily and smell bad, gas, bloating, and stomach pain. You also may notice that you're losing weight without knowing why. People with EPI can't break down the food they eat, and they have trouble absorbing nutrients. What Are the Symptoms of EPI? Not everyone with EPI has the same symptoms. People with EPI may have one, some, or all of the problems listed below. Diarrhea Lowing weight without trying Oily and bad-smelling stools called steatorrhea Gas and bloating Stomach pain How Is EPI Treated? If you have EPI, your doctor may prescribe pancreatic enzyme replacement therapy [PERT] for you. PERT is a medicine that replaces the enzymes your pancreas no longer makes to help you digest your food. How Do I Take My PERT? Your doctor will personalize your PERT dose based on your weight, diet, and EPI symptoms. Your daily dose should be divided among each of your 3 meals plus 2 or 3 snacks during the day. PERT is a medicine that needs to be taken long-term. This means that most patients with EPI will need to take PERT for the rest of their lives PERT has to be taken with food to work right. It's important to take it every day during meals and snacks. - That means whether you have lunch at home, a quick snack while you're running errands, or dinner at a restaurant, you should take your PERT each time you eat. Along with PERT, your doctor may tell you to make sure that you eat a well-balanced diet and may also prescribe vitamins. You should see your doctor 2 weeks after you start taking PERT. Your doctor will ask you about how you have been feeling and what foods you have been eating. He or she may change your PERT dose to make sure it is right for you. Are there side effects of PERT? Each type of PERT has its own side effects. Ask your doctor about the possible side effects of your medicine. Remember to take your PERT with you when you're on the go. Just like your cell phone and keys, don't leave home without it. What Else Do I Need to Do if I Have EPI? When you have EPI, it's very important that you take good care of yourself so that you stay healthy. Below are some useful tips to help you lead a healthier life with EPI: Take PERT the way the doctor tells you Take PERT every day during meals and snacks - Taking PERT at various points during meals, rather than before or after ou eat, helps your body digest fat better. Sometimes your PERT dose may need to be changed based on your diet, weight, and EPI symptoms. It's important to tell your doctor about the types of food you eat, if ou gain or lose weight, and how you feel. Talk to your doctor about vitamins - People with EPI may have problems absorbing fat-soluble vitamins such as A, D, E, and K from their food. Ask your doctor which vitamin supplements are right for you. When you have EPI, smoking tobacco and drinking alcohol can cause more damage to your pancreas. All people with EPI should not smoke or drink. Keep a list of the foods you eat and any stomach or bowel problems you experience while taking PERT. Share the list with your doctor. Remember, not everyone with EPI has the same symptoms, so talk to your doctor about all your stomach and bowel problems. References: 1. Felipe WOODARD. Pancreatic enzyme therapy for pancreatic exocrine insufficiency. Curr Gastroenterol Rep. 2007;9(2):116-122. 2. America M, Luzmaria M, Orquidea CISSE. Pancreatic enzyme pharmacotherapy. Pharmacotherapy. 2007;27(6):910-920. 3. Dorothy Wallace, Ivan Sullivan, Marc Sahni. Enzyme repalcementtherapy for pancreatic insufficiency: present and future. Clin Exp Gastroenterol. 2011;4:55-73. 4. Anabella. Treatment of pancreatic exocrine deficiency. World J. Surg.2003;27(11):2402-8869. 5. [place] Diabetes Association. Diagnosis and classification of diabetes mellitus. Diabetes Care. 2014;37(suppl 1):S81-S90. 6. Fabrizio JU, Adrián W, Lorenzo P, Mark AB, Gerardo PG. Low fecal elastase 1 levels do not indicate exocrine pancreatic insufficiency in type-1 diabetes mellitus. Pancreas. 2008;36(3):274-278. 7. Daphne F, Cintia K, Steve E, et al. Does pancreatitis elastase-1 in stoold predict steatorrhea in type 1 diabetes? Diabetes Care. 2006;29(3):719-721. 8. Nabor PD, Domingo Wallace, Kathya C, et al. High prevalence of steatorrhea in 101 diabetic patients likely to suffer from exocrine pancreatic insufficiency acording to low fecal elastase 1 concentrations: a prospective multicenter study. Dig Dis Sci. 2003;48(9):9644-4616. 9. Cystic Fibrosis Foundation. Use of pancreatic enzyme supplements for patietns with cystic fibrosis in the context of fibrosing colonopathy. https://www.cff.org/uploadedFiles/ Content/For_Caregivers/Clinical_Ca re_Guidelines/Nutrition_and_GI_Cli nical_Care_Guidelines/Consensus-St dgoupbu-Wqriefwesh-Icmhcc-Replacem .pdf. Accessed February 13, 2017. 10. Danya Cotto. Diagnosis and treatment of pancreatic exocrine insufficiency. World J Gastroenterol. 2013;19(42):3078-9278. 11. Felipe WOODARD, Bradford J, Ria M, Tejas A, Luana Naylor. Effect of the administration schedule on the therapeutic efficacy of oral pancreatic enzyme supplements in patients with exocrine pancreatic insufficiency: a randomized, three-way crossover study. Alilment Pharmacol There. 2005;21(8):993-1000. This questionnaire is meant to help you and your doctor understand the impact treatment is having on your GI symptoms. These questions are about your current symptoms, as you perceive them. Strength of enzyme capsule you are currently taking: How many enzyme capsules does your healthcare provider tell you to take with every meal: How many enzyme capsules does your healthcare provider tell you to take with every snack: When are you taking your enzymes? ([place] one) Before Meal During Meal After Meal During the past two weeks, how often have you: Had frequent diarrhea? Almost Always Often Sometimes Never Had greasy stools? Almost Always Often Sometimes Never Had loose stools? Almost Always Often Sometimes Never [place] bloated? Almost Always Often Sometimes Never Had excessive gas? Almost Always Often Sometimes Never Had abdominal pain? Almost Always Often Sometimes Never Had to ching to the bathroom in the middle of the night? Almost Always Often Sometimes Never During the past two weeks, how bothered/concerned were you by: Eating fatty or greasy foods? Almost Always Often Sometimes Never Taking enzymes in front of others? Almost Always Often Sometimes Never Using a public bathroom? Almost Always Often Sometimes Never Having GI problems (stomachache, loose stools) due to missed enzymes? Almost Always Often Sometimes Never Having to stay on the toilet for a long time? Almost Always Often Sometimes Never During the past two weeks, how often did you: Forget to bring your enzymes when eating out? Almost Always Often Sometimes Never Skip a meal? Almost Always Often Sometimes Never Forget to take your enzymes? Almost Always Often Sometimes Never Have a poor appetite because of GI problems? Almost Always Often Sometimes Never Miss daily activities because of GI discomfort? Almost Always Often Sometimes Never During the past week: How many stools did you have per day? 0-1 2-3 4-5 6 or more documented in this encounter [facility] 11-02-2024 Note HNO ID: [id number] Author: LINDSEY WILLARD APRN.CNP Service: ? Author Type: Nurse Practitioner Type: [...] She was seen 2 days ago at [facility] and had a lipase of 58. I do not think she needs another workup at this point. She states she has an appointment with a animal damage control agent on Thursday. I will get her some [...] are met. - Discharge patient to home. (more content not included)... [facility] 11-02-2024 History of Present illness Narrative New Patient/Consult REASON FOR VISIT Chioma Rainey [...] She was seen 2 days ago at [facility] and had a lipase of 58. I do not think she needs another workup at this point. She states she has an appointment with a animal damage control agent on Thursday. I will get her some [...] of the lung bases are unremarkable. MONIQUE Cleo 06/18/2016 Assessment IMPRESSION: A 45 yo female [...] 157.5 cm (5' 2 ) BMI 23.78 kg/m General - Normal, healthy, cooperative, in no [...] health. I spent more than 30 minutes nono-fp-tizc with the patient and over half the time was devoted to counseling and/or coordination of care. Recording using ambient [employer] software for draft documentation of the visit was discussed with the patient/authorized sales representative publications; all questions welcomed and answered. Patient/authorized sales representative publications agreed to proceed Lindsey Willard APRN.IT INTERN documented in this encounter [facility] 10-28-2024 Radiology Diagnostic study note [facility] [place] [address] [place] [address] CT Scan Report Signed Patient: Chioma Arciniega MR#: [id number] : 1970 Acct:[id number] Age/Sex: 54 / F ADM Date: 5 Loc: ER Room: Type: [facility] ER Attending Dr: Copies to: Andrew [...] Mendieta M.D. 10/28/2024 4:38 PM Dictation Location: [employer] Transcribed By: RICA 10/28/24 1638 Dictated By: Cruzito Mendieta DO 10/28/24 1636 Signed By: 10/28/24 1638 [facility] 10-28-2024 Hospital Discharge instructions Additional Instructions It is very important that you follow up with your primary care provider in the next 2-3 days unless instructed to do otherwise. If you do not have a primary care provider, you can contact [facility] and ask about being established for primary care services. If you require specialist follow up, such as with an orthopedic physician, service manager, urologist, or other medical specialty, you should [...] should first take Tylenol or ibuprofen available skcg-whm-toaxuqx. Medications, if prescribed to treat pain from [...] or if you have any other concerns [facility] Work Phone: 10-24-2024 Note ED Patient Education [...] urine pale yellow. General instructions ??? Take xosb-bzw-gnorxrd and prescription medicines only as told by your health care provider. These include vitamin supplements. ??? Ask your health care provider if the medicine prescribed to you: ? Requires you to avoid driving or using machinery. ? Can cause constipation. You may need to take these actions to prevent or treat constipation: ? Take iyfn-lbv-rtoqvpg or prescription medicines. ? Eat foods that are high in fiber, such as beans, whole grains, and fresh fruits and vegetables. ? Limit foods that are high in fat and processed sugars, such as fried or sweet foods. ??? Do not use any products that contain nicotine or tobacco. These (more content not included)... [facility] 10-19-2024 Radiology Diagnostic study note [facility] [place] [address] [place], [place] [id number] CT Scan Report Signed Patient: Chioma Arciniega MR#: [id number] : 1970 Acct:[id number] Age/Sex: 54 / F ADM Date: 5 Loc: ER Room: Type: REG ER Attending Dr: Copies to: Diomedes Posadas APRN~ Ordering Provider: Diomedes Posadas APRN Date of Service: 10/19/24 CT/CT [...] Mendieta M.D. 10/19/2024 10:12 PM Dictation Location: [place] [address] Transcribed By: [facility] 10/19/242211 Dictated By: Cruzito Mendieta DO 10/19/242203 Signed By: 10/19/242211 [facility] 10-09-2024 Note ED Patient Education Note [...] urine pale yellow. General instructions ??? Take ghqn-enc-oyvpjbo and prescription medicines only as told by your health care provider. These include vitamin supplements. ??? Ask your health care provider if the medicine prescribed to you: ? Requires you to avoid driving or using machinery. ? Can cause constipation. You may need to take these actions to prevent or treat constipation: ? Take rszq-xmz-edzltum or prescription medicines. ? Eat foods that are high in fiber, such as beans, whole grains, and fresh fruits and vegetables. ? Limit foods that are high in fat and processed sugars, such as fried or sweet foods. ??? Do not use any products that contain nicotine or tobacco. These (more content not included)... [facility] 10-03-2024 Note ED Patient Education Note Endocrinology [...] urine pale yellow. General instructions ??? Take zdid-yyz-jpdakwf and prescription medicines only as told by your health care provider. These include vitamin supplements. ??? Ask your health care provider if the medicine prescribed to you: ? Requires you to avoid driving or using machinery. ? Can cause constipation. You may need to take these actions to prevent or treat constipation: ? Take pibl-idh-fjyiynu or prescription medicines. ? Eat foods that are high in fiber, such as beans, whole grains, and fresh fruits and vegetables. ? Limit foods that are high in fat and processed sugars, such as fried or sweet foods. ??? Do not use any products that contain nicotine or tobacco. These (more content not included)... [facility] 09-27-2024 Hospital Discharge instructions Tasha Zamora MD - 09/27/2024 1:57 [...] be sent through Care Everywhere.Nausea and Vomiting (Ghanaian)documented in this encounter [facility] 09-20-2024 Hospital Discharge instructions Tasha Zamora MD - 09/20/2024 8:45 [...] attachments cannot be sent through Care Everywhere.Pancreatitis (Ghanaian)Pancreatitis: Chronic Diet (Ghanaian)documented in this encounter [facility] 05-31-[address] ABDOMEN AND PELVI S [...] London Hurd DO on 05/31/2024 3:21 PM [facility] 04-07-2024 Hospital Discharge instructions Peter Escalera MD - 04/07/2024 6:10 PM EST Please start a clear liquid diet today and tomorrow, advance as tolerated, avoid alcohol. Follow-up with your GI doctor tomorrow for further recommendations. The following attachments cannot be sent through Care Everywhere.Pancreatitis (Ghanaian)Clear Liquid Diet: General Info (Ghanaian)documented in this encounter [facility] 01-19-2024 Nurse Surgical operation note Patient mets [...] off unit via wheelchair w/ family assistance. [facility] 01-19-2024 Nurse Note Patient mets discharge [...] w/ family assistance. documented in this encounter [facility] 01-19-2024 History and physical note ENDOSCOPIC [...] DIAGNOSTIC N/A 06/25/2015 Laterality: N/A; Surgeon: Pineda Tory MD; Location: [facility] ENDOSCOPY EGD W/ PLACEMENT [...] 50,000 Units, Oral, WEEKLY Pancreatic enzymes (Creon) 40115-97[address]-400604 units Cap DR Particles capsule 72,000 Units, Oral, 2 TIMES DAILY WITH MEALS Current Outpatient Medications: Ergocalciferol 1.25 MG (32828 UT) capsule, Take 1 capsule by mouth once a week., Disp: 8 capsule, Rfl: 0 Pancreatic enzymes (Creon) 81120-201[address]-660639 units Cap DR Particles capsule, Take 3 [...] using Monitored Anesthesia Care. Daniel Christiansen MD [facility] Work Phone: 01-19-2024 History and physical [...] 50,000 Units, Oral, WEEKLY Pancreatic enzymes (Creon) 45364-48[address]-900292 units Cap DR Particles capsule 72,000 Units, Oral, 2 TIMES DAILY WITH MEALS Current Outpatient Medications: Ergocalciferol 1.25 MG (12824 UT) capsule, Take 1 capsule by mouth once a week., Disp: 8 capsule, Rfl: 0 Pancreatic enzymes (Creon) 28477-75[address]-714088 units Cap DR Particles capsule, Take 3 [...] Daniel Christiansen MD documented in this encounter [facility] 01-07-2024 Hospital Discharge instructions Dayday Jensen APRN - CNP - 01/07/2024 5:08 PM EDT Increase fluids. [place] diet Continue home medication The following attachments cannot be sent through Care Everywhere.Abdominal Pain (Ghanaian)Pancreatitis (Ghanaian)Pancreatitis: Chronic Diet (Ghanaian)documented in this encounter [facility] 09-08-2023 History and physical note ENDOSCOPIC PREPROCEDURE [...] 50,000 Units, Oral, WEEKLY Pancreatic enzymes (Creon) 08612-718[address] units [address] Particles capsule 72,000 Units, Oral, 2 TIMES DAILY WITH MEALS Current Outpatient Medications: Ergocalciferol 1.25 MG (56378 UT) capsule, Take 1 capsule by mouth once a week., Disp: 8 capsule, Rfl: 0 Pancreatic enzymes (Creon) 55850-[address] units [address] Particles capsule, Take 3 [...] Monitored Anesthesia Care. Sabrina Dee MD, MPH [facility] 09-08-2023 History and physical note ENDOSCOPIC [...] Laterality: N/A; Surgeon: Curry Newell MD; Location: [facility] ENDOSCOPY EGD W/ INSERTION TUBE OR CATHETER N/A 06/13/2015 Laterality: N/A; Surgeon: Jose Ty MD; Location: [facility] ENDOSCOPY EGD W/ ULTRASOUND N/A 02/14/2015 Laterality: N/A; Surgeon: Pineda Troy MD; Location: [facility] ENDOSCOPY CHOLECYSTECTOMY CHOLECYSTECTOMY, LAPAROSCOPIC HYSTERECTOMY MEDICATIONS: Current Outpatient Medications Medication Instructions Ergocalciferol (VITAMIN D2) 50,000 Units, Oral, WEEKLY Pancreatic enzymes (Creon) 65237-[address] Particles capsule 72,000 Units, Oral, 2 TIMES DAILY WITH MEALS Current Outpatient Medications: Ergocalciferol 1.25 MG (73743 UT) capsule, Take 1 capsule by mouth once a week., Disp: 8 capsule, Rfl: 0 Pancreatic enzymes (Creon) 96797-[address] Particles capsule, Take 3 [...] Dee MD, MPH documented in this encounter [facility] 09-08-2023 Miscellaneous Notes RN and MD educated pt on DC instructions, pt verbalized understanding. IV removed per protocol. documented in this encounter [facility] 09-08-2023 Nurse Note Stefano educated pt on DC instructions, pt verbalized understanding. IV removed per protocol. [facility] 05-22-2023 Miscellaneous Notes Called patient to remind them to bring their most current copy of their medication list with them to their appt. Patient verbalizes understanding. documented in this encounter [facility] 05-22-2023 Telephone encounter Note Called patient to remind them to bring their most current copy of their medication list with them to their appt. Patient verbalizes understanding. [facility] 05-11-2023 History of Present illness Narrative This Box Closing Machine Operator verified the patients name and date of . Subjective Reason for Visit: She had concerns including Follow-up. HPI: 51 yo woman with: 1. EtOH chronic pancreatitis, last drink in 2014 (15 years of drinking 12 pack beer/day) 2. Tobacco abuse, 1/ ppd. Cut down smoking in early 2019 (before 1 ppd, 20 pack year history) 3. Multiple attacks of prior acute pancreatitis; last attack of acute pancreatitis (with elevated lipase) September 2021 4. Prior EUS CPB in 2015, 2016, 2019, 2022 with good response; also prior feeding tube for pain management 5. Prior evaluation at [facility] for TPIAT and was not [...] (human immunodeficiency virus infection), Hyperlipidemia, Hyperthyroidism, Hypothyroidism, TN (myocardial infarction), Migraine, PEGGY (obstructive sleep apnea), [...] includes the following prescription(s): Pancreatic enzymes (Creon) 04861-[address] units [address] Particles capsule and Ergocalciferol 1.25 MG (29021 UT) capsule. Allergies: She is allergic to [...] Hepatology, and Nutrition documented in this encounter [facility] 05-11-2023 Instructions Sabrina Dee MD, MPH [...] celiac plexus block documented in this encounter [facility] 04-16-2023 Miscellaneous Notes Pt called requesting to schedule a new patient appt. Referral is in media from [employer]ela [employer]. A good phone number to reach the pt: [phone] Referral in media was to [facility] so pt has no referral to nephrology. LM informing pt she would need to have her referring provider fax us over a referral and then I could schedule her a new pt appt. documented in this encounter [facility] [employer] 04-16-2023 Telephone encounter Note Pt called requesting to schedule a new patient appt. Referral is in media from Tamela TidalDO tiffany. A good phone number to reach the pt: [phone] [facility] encounter Note Referral in media was to [facility] so pt has no referral to nephrology. LM informing pt she would need to have her referring provider fax us over a referral and then I could schedule her a new pt appt. [facility] Miscellaneous Notes LMOM for the patient to call and schedule their new pt appointment with [facility]. [facility] 04-16-2023 Telephone encounter Note LMOM for the patient to call and schedule their new pt appointment with [facility]. [facility] 08-12-2022 History and physical note ENDOSCOPIC PREPROCEDURE HISTORY AND PHYSICAL HISTORY OF PRESENT ILLNESS: Chioma Rainey is a 52 y.o. female seen in the pre-procedure area at [facility] ENDOSCOPY. The indication for endoscopic [...] 20 mg, Oral, DAILY Pancreatic enzymes (Creon) 85212-[address] Particles capsule 48,000 Units, Oral, 3 TIMES DAILY WITH MEALS Current Outpatient Medications: omeprazole [address] capsule, Take 1 capsule by mouth daily., Disp: 30 capsule, Rfl: 6 amitriptyline 10 MG tablet, Take 2.5 tablets by mouth at bedtime., Disp: 30 tablet, Rfl: 11 ergocalciferol 1.25 MG (80818 UT) capsule, Take 1 capsule by mouth once a week for 8 doses., Disp: 8 capsule, Rfl: 0 Pancreatic enzymes (Creon) 85108-[address] Particles capsule, Take 2 [...] Monitored Anesthesia Care. Sabrina Dee MD, MPH [facility] 08-12-2022 History and physical note [...] Laterality: N/A; Surgeon: Pineda Troy MD; Location: [facility] ENDOSCOPY EGD W/ ULTRASOUND N/A 01/23/2016 Laterality: N/A; Surgeon: Pineda Troy MD; Location: [facility] ENDOSCOPY CHANGE TUBE GASTROSTOMY N/A 08/20/2015 Laterality: N/A; Surgeon: Yanni Alonzo MD; Location: [facility] ENDOSCOPY EGD DIAGNOSTIC N/A 06/25/2015 Laterality: N/A; Surgeon: Pineda Troy MD; Location: [facility] ENDOSCOPY EGD W/ PLACEMENT OR REPLACEMENT PEG N/A 06/15/2015 Laterality: N/A; Surgeon: Curry Newell MD; Location: [facility] ENDOSCOPY EGD W/ INSERTION TUBE OR CATHETER N/A 06/13/2015 Laterality: N/A; Surgeon: Jose Ty MD; Location: [facility] ENDOSCOPY EGD W/ ULTRASOUND N/A 02/14/2015 Laterality: N/A; Surgeon: Pineda Troy MD; Location: [facility] ENDOSCOPY CHOLECYSTECTOMY CHOLECYSTECTOMY, LAPAROSCOPIC HYSTERECTOMY MEDICATIONS: Current Outpatient Medications Medication Instructions Amitriptyline (ELAVIL) 25 mg, Oral, DAILY AT BEDTIME Ergocalciferol (VITAMIN D2) 50,000 Units, Oral, WEEKLY omeprazole (PRILOSEC) 20 mg, Oral, DAILY Pancreatic enzymes (Creon) [address]47-[address] Particles capsule 48,000 Units, Oral, 3 TIMES DAILY WITH MEALS Current Outpatient Medications: omeprazole [address] capsule, Take 1 capsule by mouth daily., Disp: 30 capsule, Rfl: 6 amitriptyline 10 MG tablet, Take 2.5 tablets by mouth at bedtime., Disp: 30 tablet, Rfl: 11 ergocalciferol 1.25 MG (04063 UT) capsule, Take 1 capsule by mouth once a week for 8 doses., Disp: 8 capsule, Rfl: 0 Pancreatic enzymes (Creon) 04463-[address] units [address] Particles capsule, Take 2 [...] MD, MPH documented in this encounter [facility] 08-12-2022 Nurse Note PT Given discharge paperwork and reviewed per MD and nurse. Jewelry Bearing Maker available.Diet and restrictions reviewed as well. Venous access removed no complications noted. Ok to d/c Anesthesia and procedural MD. documented in this encounter [facility] 08-12-2022 Nurse Surgical operation note PT Given discharge paperwork and reviewed per MD and nurse. Jewelry Bearing Maker available.Diet and restrictions reviewed as well. Venous access removed no complications noted. Ok to d/c Anesthesia and procedural . [facility] 06-16-2022 History of Present illness Narrative This Box Closing Machine Operator verified the patients name and date [...] for pain management 5. Prior evaluation at [facility] for TPIAT and was not a candidate 6. Last CT was at [facility] in 05/2019: No calcification in [...] (human immunodeficiency virus infection), Hyperlipidemia, Hyperthyroidism, Hypothyroidism, TN (myocardial infarction), Migraine, PEGGY (obstructive sleep apnea), [...] amitriptyline 10 MG tablet, ergocalciferol 1.25 MG (45037 UT) capsule, and Pancreatic enzymes (Creon) 91704-[address] Particles capsule. Allergies: She [...] Hepatology, and Nutrition documented in this encounter [facility] 06-16-2022 Instructions Sabrina Dee MD, MPH - 06/16/2022 11:00 AM EDT Schedule EUS celiac plexus block; EGD dilation Referral to endocrinology; appointment to be scheduled Return to clinic in Mar 2023 Smoking cessation Vitamin D 2000 units daily Calcium supplement 1 gram daily Omeprazole (Prilosec) 20mg daily, take at least 30 mins before dinner documented in this encounter [facility] 01-28-2022 Miscellaneous Notes Attending physician [...] received new orders documented in this encounter [facility] 01-28-2022 Note Formatting of this n ote might be different from the original. Attending physician in room speaking with patient and family on results. Attending physician ok for discharge. Pt ambulated unassisted with steady gait and balance. IV removed and discharge instructions given with verbal ok by patient of understanding. Pt discharged via w/c with taxicab driver from unit. [facility] 01-28-2022 Note Formatting of this n ote might be different from the original. Dr dee aware patient ready for results [facility] 01-28-2022 Note Formatting of this n ote might be different from the original. Updated dr goins on patient pain and received new orders [facility] 01-28-2022 History and physical note [...] 50,000 Units, Oral, WEEKLY Pancreatic enzymes (Creon) [address] Particles capsule 48,000 Units, Oral, 3 TIMES DAILY WITH MEALS Current Outpatient Medications: amitriptyline 10 MG tablet, Take 2.5 tablets by mouth at bedtime., Disp: 30 tablet, Rfl: 11 Pancreatic enzymes (Creon) [address] Particles capsule, Take 2 capsules by mouth 3 times daily with meals., Disp: 180 capsule, Rfl: 0 ergocalciferol 1.25 MG (08202 UT) capsule, Take 1 capsule by mouth [...] Monitored Anesthesia Care. Sabrina Dee MD, MPH [facility] 01-28-2022 History and physical note [...] 50,000 Units, Oral, WEEKLY Pancreatic enzymes (Creon) [address]28-[address] Particles capsule 48,000 Units, Oral, 3 TIMES DAILY WITH MEALS Current Outpatient Medications: amitriptyline 10 MG tablet, Take 2.5 tablets by mouth at bedtime., Disp: 30 tablet, Rfl: 11 Pancreatic enzymes (Creon) 46652-[address] Particles capsule, Take 2 capsules by mouth 3 times daily with meals., Disp: 180 capsule, Rfl: 0 ergocalciferol 1.25 MG (76466 UT) capsule, Take 1 capsule by mouth [...] Dee MD, MPH documented in this encounter [facility] 12-16-2021 History of Present illness Narrative This MA verified the patients [...] for pain management 5. Prior evaluation at [facility] for TPIAT and was not a candidate 6. Last CT was at [facility] in 05/2019: No calcification in [...] (human immunodeficiency virus infection), Hyperlipidemia, Hyperthyroidism, Hypothyroidism, [place] (myocardial infarction), Migraine, PEGGY (obstructive sleep apnea), [...] 10 MG tablet and Pancreatic enzymes (Creon) 44667-[address] units [address] Particles capsule. Allergies: She [...] in 6 months documented in this encounter [facility] 12-16-2021 Instructions Sabrina Dee MD, MPH - 12/16/2021 11:30 AM EDT Schedule DEXA scan Schedule colonoscopy Schedule EUS Start vitamin D 1,000 units daily. Start calcium supplements 1g daily RTC in 6 months documented in this encounter [facility] 03-19-2021 Evaluation note Encounter Date [...] writting by [facility] document [employer] Other 08-01-2020 History general Narrative - Reported* Type Description Date Medical History chronic pancreatitis Medical History chronic pain Medical History former alcoholic Surgical History [facility]- [facility] Surgical History GALLBLADDER Surgical History COLON-[facility] Hospitalization History see above [employer] Other Evaluation noteNo assessment information available [facility] Work Phone: Evaluhlvck note* Diagnosis Recurrent acute pancreatitis- Primary Acute pancreatitis History of smoking 25-50 pack years Alcohol-induced chronic pancreatitis Chronic pancreatitis Epigastric pain Abdominal pain, epigastric Encounter for screening colonoscopy Special screening for malignant neoplasms, colon [facility] Diagnosis Recurrent acute pancreatitis Acute pancreatitis History of smoking 25-50 pack years Encounter for screening colonoscopy Special screening for malignant neoplasms, colon [facility] Diagnosis Other osteoporosis without current pathological fracture- Primary Recurrent acute pancreatitis Acute pancreatitis Encounter for screening colonoscopy Special screening for malignant neoplasms, colon [facility] Diagnosis Encounter for screening colonoscopy Special screening for malignant neoplasms, colon [facility] Diagnosis Osteoporosis without current pathological fracture, unspecified osteoporosis type- Primary Alcohol-induced chronic pancreatitis Chronic pancreatitis [facility] Diagnosis Alcohol-induced chronic pancreatitis Chronic pancreatitis [facility]* Diagnosis Alcohol-induced chronic pancreatitis- Primary Chronic pancreatitis Encounter for screening for malignant neoplasm of colon Special screening for malignant neoplasms, colon Other osteoporosis without current pathological fracture Epigastric pain Abdominal pain, epigastric Smoking Tobacco use disorder Gastroesophageal reflux disease without esophagitis Esophageal reflux [facility]* Diagnosis Alcohol-induced chronic pancreatitis Chronic pancreatitis documented [facility]* Diagnosis Alcohol-induced chronic pancreatitis Chronic pancreatitis documented [facility]* Diagnosis Hypokalemia- Primary Hypopotassemia Acute recurrent pancreatitis Acute pancreatitis documented [facility] this [facility]* Diagnosis Acute on chronic pancreatitis (HCC)- Primary Abdominal pain, epigastric [facility]* Diagnosis Acute pancreatitis without infection or necrosis, unspecified pancreatitis type- Primary Acute recurrent pancreatitis Acute pancreatitis documented in this encounter [facility]* Diagnosis Abdominal pain, epigastric- Primary documented in this encounter [facility]* Diagnosis Other chronic pancreatitis (HCC)- Primary documented in this encounter [facility]* Diagnosis Abdominal pain, epigastric- Primary Nausea and vomiting, unspecified vomiting type documented in this encounter [facility]* Diagnosis Chronic pancreatitis, unspecified pancreatitis type (HCC)- Primary Exocrine pancreatic insufficiency (HCC) Other specified disease of pancreas Epigastric pain Abdominal pain, epigastric Loose stools Abnormal feces Heartburn Tobacco use Tobacco use disorder documented in this encounter [facility] note* Diagnosis Acute on chronic pancreatitis (HCC)- Primary Acute pancreatitis, unspecified complication status, unspecified pancreatitis type documented in this encounter [facility]Eval[facility] note* Diagnosis Chronic pancreatitis, unspecified pancreatitis type (HCC) Epigastric pain Abdominal pain, epigastric Loose stools Abnormal feces Heartburn Exocrine pancreatic insufficiency (HCC) Other specified disease of pancreas documented in this encounter [facility] Discharge instructions Additional Instructions Fluids Phenergan if needed for nausea vomiting Bentyl as needed for abdominal pain Follow-up with your GI specialist call Thursday for appointment Return here if any problems persist or worsen [facility] Work Phone: Hospital Discharge instructions Additional Instructions Clear with diet today and advance as tolerated Push fluids Percocet if needed for severe pain Zofran or Phenergan if needed for nausea vomiting Keep your doctor's appointment tomorrow as planned Return here if you develop any increased pain, vomiting unable to be controlled, fevers, chills or any other concern[facility] Work Phone: Hospital Discharge instructions Additional Instructions Follow-up with your primary care doctor Return to ED if develop worsening symptoms or concernsMet[facility]health [facility] Work Phone: Hospital Discharge instructions Additional Instructions Follow-up with your private physician as your calcium was slightly elevated Return if symptoms are worse Lots of fluids/no alcoholMetrohealth Parma Medical Center Work Phone: Hospital Discharge instructions* Attachments The following attachments cannot be sent through Care Everywhere. * Clear Liquid Diet: General Info (Ghanaian) [facility]* Attachments The following attachments cannot be sent through Care Everywhere. * Abdominal Pain (Ghanaian) [facility] Additional Instructions Clear liquid diet and then advance as tolerated Avoid any spicy, hot, fried foods Zofran for nausea vomiting [place] if needed for severe pain Follow-up with your GI specialist call tomorrow for appointment Return here if any problems persist or worsenMet[facility] Work Phone: Hospital Discharge instructions* Attachments The following attachments cannot be sent through Care Everywhere. * Pancreatitis (Ghanaian) documented in this encounterBon [facility] CenterInstructionsNot on file documented in this encounterMer[facility] [employer] SystemInstructionsNot on file documented in this encounterProBellevue Hospital SystemInstructionsNot on file documented in this encounterCleveland Clinic Foundation SystemReason for referral (narrative)No reason for referral information availableMet[facility]health [facility] Work Phone: Reason for visit Narrative* Outpatient Procedure (Routine) - Closed Specialty Diagnoses / Procedures Referred By Zia t Referred To Contact [facility] Diagnoses Chronic pancreatitis, unspecified pancreatitis type (HCC) Epigastric pain Loose stools Heartburn Exocrine pancreatic insufficiency (HCC) Procedures EGD - THERAPEUTIC, EUS, OR TUBE INTERVENTIONS EGD TRANSORAL BIOPSY SINGLE/MULTIPLE Lindsey Willard APRN.IT INTERN [address] [place] [address] Phone: tel: fax: [facility] [address] [place] [address] Referral ID Status Reason Start Date Expiration Date V isits Requested Visits Authorized [id number] Closed Auto-Generate d Referral 11/02/2024 11/02/[address] [facility] Discharge Instructions * Jose Brown PA-C [...] Log into your personal health record on [email or web address] and enter E907 in the Education box to learn more about Abdominal Pain: Care Instructions. Current as of: August 03, 2015 Content Version: 11.2 8559-9025 [employer]. Care instructions adapted under license by your healthcare professional. If you have questions about a medical condition or this instruction, always ask your healthcare professional. [employer] disclaims any warranty or liability for your [...] Log into your personal health record on [email or web address] and enter H591 in the Education box to learn more about Nausea and Vomiting: Care Instructions. Current as of: August 03, 2015 Content Version: 11.2 0956-5844 Ghost. Care instructions adapted under license by your healthcare professional. If you have questions about a medical condition or this instruction, always ask your healthcare professional. [employer] disclaims any warranty or liability for your use of this information. Please review regarding your visit: Please note that your blood pressure during this ER visit was above 120/80 mmHg. YOUR BP READING WAS: 111/88 The [place] [employer] Association (AHA) defines a normal blood [...] review at your convenience for more information: [email or web address] in this encounter* Discharge Instr - Other Orders - Poncho Sparks RN - 05/15/2017 1:20 PM EST Patient voices desire to leave hospital AMA. IV removed. Patient is ambulatory in care of spouse. [facility] hospitalist notified. in this encounter* Lavern Khan CNP - 08/24/2017 Seek medical attention if you have worsening symptoms or other concerns. Please follow up with your family doctor or one of your choosing. You may find a provider through the [facility] Physician Referral Service by calling [phone] ([phone]) or by visiting [email or web address] [place], Thank You for choosing [facility]! The following attachments cannot be sent through Care Everywhere. * Nausea and Vomiting (Ghanaian) * Gastroenteritis (Ghanaian) * Diarrhea (Ghanaian) in this encounter The following attachments cannot be sent through Care Everywhere. * Pancreatitis (Ghanaian) in this encounter* Instructions* Laura Meyer RN - 08/25/2019 Patient Instructions: Activity: activity as tolerated Diet: encourage fluids GI specialist in 2 weeks. * Attachments The following attachments cannot be sent through Care Everywhere. 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 Advance Directives and Living Will Power of Residential Aide Latest Code Status on File Code Status Date Activated Date Inactivated Comments Full Code 08/22/2019 4:27 PM Documents on File Type Date Recorded Patient Catalyst Plant Supervisor Expl anation Advance Directives and Livin g [...] Documents on File Type Date Recorded Patient Catalyst Plant Supervisor Expl anation ACP-Advance Directive ACP-Power of Residential Aide Latest Code Status on File Code Status [...] Comments 08/22/2019 4:27 PM 08/25/2019 12:21 PM Date Activated Date Inactivated Comments 11/06/2024 9:58 PM Date Activated Date Inactivated Comments 08/22/2019 4:27 PM 08/25/2019 12:21 PM Healthcare Agents on File Name Relationship Healthcare Agent Relationshi p Communication Justino Demian Spouse Primary Decision Maker History of Present Illness * Laura Meyer [...] toradol is contraindicated. Called Dr. Hughes back, science writer explained that patient is tolerating dilaudid. Dr. Hughes ordered dose of dilaudid increased from 0.25 mg to 0.5 mg q4 hrs PRN. * Ladan Stearns RN - 08/24/2019 1:27 PM EDT Patient walking in hallway at this time. * Ladan Stearns RN - 08/24/2019 9:14 AM EDT Fire Officer to patients bedside at this time to reassess pain. Patient sitting in chair, appears restless and is tearful. Patient states Dilaudid did not help the pain, states there is nothing science writer can do as she deals with [...] Scheduled for EGD in September with her Deburring Machine Operator at [facility] Discharge Planning -- Home when stable Carley Camara APRN, BILLING CUSTOMER SERVICE REPRESENTATIVE-C Associated attestation - Rajeev Cantor MD - 08/24/2019 5:30 PM EDT Attending Supervising Physician s Attestation Statement I have personally evaluated and examined the patient [id number] in conjunction with the nurse practitioner. I [...] Examined and Reviewed plan of care with BILLING CUSTOMER SERVICE REPRESENTATIVE. Directions and discussion about care and plans. [...] Birmingham RN - 08/23/2019 4:40 PM EDT Fire Officer contacted Dr. Cantor regarding update that patient [...] he would not give order for Benedryl. Fire Officer let nurse know that if patient's c/o ithcing and redness doesn't improve in an hour, that science writer will be calling back to update physician. * Brie Birmingham RN - 08/23/2019 3:20 PM EDT Fire Officer called into patient's room d/t patient c/o itching, feeling hot , and slight redness noted to BUE and face. Fire Officer contacted Dr. Cantor office and left message with his nurse, asking for IV Benedryl and d/c of Lovenox. Patient thinks she may have had reaction to Lovenox in the past, and thatis the only other med she is currently taking here other than Dilaudid. Fire Officer did once again verify that patient usually [...] medically stable. Patient lives with her in [place]. She uses no DME and has no outside services currently in place. Patient provides for her own transportation needs and manages her medications. She is independent with her ADL's. PCP is [facility]. [facility] and denies needing further assistance with the cost of her medications. Discharge plan is home with no additional services at this time. Patient is a 'Full Code' status. She has no healthcare directives and voices that she is not interested in pursuing these documents further. RETAIL EVENT AND SALES ASSISTANT to monitor and assist with discharge [...] [place] RN - 08/23/2019 9:05 AM EDT Fire Officer made IT INTERN aware that patient is vomiting at this time since clear liquid diet added. Fire Officer to give Zofran and place patient back [...] weight loss, but states of weight gain. [id number] Discussed need to re-zero Pt bed to verify gain. She declined education needs states she has a GI doctor and RDN at the [facility]. Reports following the guidelines they recommended. [...] 5. Fluid Accumulation-No significant fluid accumulation, 6. Home Health Clinical Supervisor Strength-Not measured Nutrition Risk Level: Moderate Nutrient Needs: Estimated Daily Total Kcal: 6162-3680(20-23/kg) Estimated Daily Protein (g): 65-75g(1.3-1.5g/kg) Estimated Daily [...] weight gain/23%, recommend to re-zero Pt bed Cutler Body Wt: 110 lb (49.9 kg), % Cutler Body 129% BMI Classification: BMI 25.0 - [...] Nausea or Vomiting, Patient/Family Education Contact Number: [phone] * Carley Camara APRN - IT INTERN - 08/23/2019 7:30 AM EDT Progress Note [...] Daily Discharge Plan--later today/tomorrow Carley Camara APRN, BILLING CUSTOMER SERVICE REPRESENTATIVE-C Associated attestation - Rajeev Cantor MD - 08/23/2019 12:04 PM EDT Attending Supervising Physician s Attestation Statement I have personally evaluated and examined the patient [id number] in conjunction with the nurse practitioner. I [...] Examined and Reviewed plan of care with BILLING CUSTOMER SERVICE REPRESENTATIVE. Directions and discussion about care and plans. [...] of running a code on another patient; finishing area supervisor states that report will be called when able. Fire Officer unable to get ahold of staff inED to put patient in solution design and analysis manager so that science writer can transfer patient over to [facility]. [...] Diagnoses Alcohol-induced chronic pancreatitis Procedures UPPER EUS SD ESOPHAGOGASTRODUODENOSCOPY US SCOPE W/ADJ STRXRS Sabrina Dee MD, MPH [address] [place] [phone] Referral ID Status Reason Start Date Expiration Date V isits Requested Visits Authorized [id number] New Request 06/16/2022 07/11/2023 1 1 Specialty Diagnoses / Procedures Referred By Contac t Referred To Contact Endocrinology, Diabetes & Metabolism Diagnoses Osteoporosis without current pathological fracture, unspecified osteoporosis type Sabrina Dee MD, MPH [address] [place] [phone] Referral ID Status Reason Start Date Expiration Date V isits Requested Visits Authorized [id number] New Request 06/16/2022 07/11/2023 1 1 Specialty Diagnoses / Procedures Referred By Contac t Referred To Contact Diagnoses Encounter for screening colonoscopy Procedures SCREENING COLONOSCOPY SD COLON CA SCRN NOT HI RSK IND Sabrina Dee MD, MPH [address] [place] [phone] Referral ID Status Reason Start Date Expiration Date V isits Requested Visits Authorized [id number] New Request 12/16/2021 01/10/2023 1 1 Specialty Diagnoses / Procedures Referred By Contac t Referred To Contact Diagnoses Recurrent acute pancreatitis History of smoking 25-50 pack years Procedures BONE DENSITY AXIAL (HIP, PELVIS, SPINE) Sabrina Dee MD, MPH [address] [place] [phone] Referral ID Status Reason Start Date Expiration Date V isits Requested Visits Authorized [id number] New Request 12/16/2021 01/10/2023 1 1 Specialty Diagnoses / Procedures Referred By Contac t Referred To Contact Diagnoses Recurrent acute pancreatitis Procedures UPPER EUS SD EGD US GUIDED TRANSMURAL INJXN/FIDUCIAL MARKER Sabrina Dee MD, MPH [address] [place] [address] Referral ID Status Reason Start Date Expiration Date V isits Requested Visits Authorized [id number] New Request 12/16/2021 01/10/2023 1 1 Additional Source Comments ED Notes - Vickie Dill RN - 06/09/2017 10:40 AM EDTED Notes - Vickie Dill RN - 06/09/2017 9:51 AM EDTED Attestation Note - Mario Mendes MD - 06/09/2017 9:18 AM EDT [...] the patient. I discussed the patient with BILLING CUSTOMER SERVICE REPRESENTATIVE/PA. I agree with the BILLING CUSTOMER SERVICE REPRESENTATIVE/PA treatment plan. I agree with the BILLING CUSTOMER SERVICE REPRESENTATIVE/PA plan of care. I agree with the BILLING CUSTOMER SERVICE REPRESENTATIVE/PA dispo as documented. 46-year-old female presents with abdominal pain. She states I have chronic pancreatitis and this feels like a flareup . States that she took her usual Phenergan and Hitterdal with minimal relief so came the emergency [...] She is going to follow with her animal damage control agent with whom she has an appointment [...] different from the original. ED PROVIDER NOTE [facility] NAME: Chioma Rainey AGE: 46 y.o. : 1970 VISIT DATE: 06/09/2017 CSN: [id number] PCP: Alexander Nichols MD Chief Complaint Patient [...] Phenergan suppository. She states that she took Hitterdal last night. Last dose of Hitterdal was around 9 PM last night. She [...] Yellow Clarity, Urine Cloudy (A) Clear Specific [place] 1.024 1.005 - 1.025 pH, Urine 5.0 [...] Phenergan suppositories. She has follow-up with her animal damage control agent at [facility] in 2 weeks. Do not feel [...] Information 1. Pineda Troy MD. Specialty: Gastroenterology [address] [place] [address] Contact information for after-discharge care Follow-up information has not been specified. New Prescriptions No medications on file (Please note that portions of this note may have been completed with a voice recognition software. Efforts were made to correct any errors, but occasionally words are mis-transcribed.) Jose Brown PA-C 06/09/17 1050 Pt states I have pancreatitis and I am having a flare up since last night . Pt relates mid abdominal pain that shoots into the left side of her back. Pt has been taking prescribed Hitterdal without relief and states she has been vomiting.in this encounter I personally interviewed the patient. I personally examined the patient. I discussed the patient with BILLING CUSTOMER SERVICE REPRESENTATIVE/PA. I agree with the BILLING CUSTOMER SERVICE REPRESENTATIVE/PA treatment plan. I agree with the BILLING CUSTOMER SERVICE REPRESENTATIVE/PA plan of care. I agree with the BILLING CUSTOMER SERVICE REPRESENTATIVE/PA dispo as documented. I saw evaluate this [...] different from the original. ED PROVIDER NOTE [facility] NAME: Chioma Rainey AGE: 46 y.o. : 1970 VISIT DATE: 05/14/2017 CSN: [id number] PCP: Alexander Nichols MD Chief Complaint Patient [...] Colorless, Yellow Clarity, Urine Clear Clear Specific [place] 1.006 1.005 - 1.025 pH, Urine 5.0 [...] in the left lower pelvis. Workstation ID: [id number] Procedures MDM This is a 46-year-old female [...] toradol and phenergan. This RN spoke with Vandana, IT INTERN. OK to discharge patient now. Formatting of this note may be different from the original. ED PROVIDER NOTE [facility] NAME: Chioma Rainey AGE: 47 y.o. : 1970 VISIT DATE: 08/24/2017 CSN: [id number] PCP: Alexander Nichols MD Chief Complaint Patient [...] Yellow Clarity, Urine Hazy (A) Clear Specific [place] 1.006 1.005 - 1.025 pH, Urine 7.0 [...] probably remain. 5. Small left adrenal adenoma. [employer] Workstation ID: [id number] Procedures MDM 47-year-old female [...] she did vomit. She was then given SD Phenergan and a dose of Toradol. She [...] Medicine Why: follow up ER visit [address] [address] Contact information for after-discharge care Follow-up information [...] any errors, but occasionally words are mis-transcribed.) Lavern Khan CNP 08/24/172051 This RN went in [...] the patient. I discussed the patient with BILLING CUSTOMER SERVICE REPRESENTATIVE/PA. I agree with the BILLING CUSTOMER SERVICE REPRESENTATIVE/PA treatment plan. I agree with the BILLING CUSTOMER SERVICE REPRESENTATIVE/PA plan of care. I agree with the BILLING CUSTOMER SERVICE REPRESENTATIVE/PA dispo as documented. Formatting of this note may be different from the original. ED PROVIDER NOTE [facility] NAME: Chioma Rainey AGE: 47 y.o. : 1970 VISIT DATE: 03/04/2018 CSN: [id number] PCP: Alexander Nichols MD Chief Complaint Patient [...] Colorless, Yellow Clarity, Urine Clear Clear Specific [place] 1.004 (L) 1.005 - 1.025 pH, Urine [...] Condition Comment Hospitalize Attending Provider or Group: [facility], GENERIC [[id number]] Phone call required?: No Follow-up Information Follow-up information has not been specified. Contact information for after-discharge care Follow-up information has not been specified. New Prescriptions No medications on file Raji Connolly PA-C 03/04/18 1412 Raji Connolly PA-C 03/04/18 1541 Pt sts that she has a history of pancreatitis and believes she is having a flare up.in this encounter Adonis Negro MD - 05/14/2017 6:40 PM EST H&P Notes (unrecognized sect ion and content) Formatting of this note may be different from the original. Adonis Negro MD [facility] Hospitalists History and Physical Patient Name:Chioma Rainey MR #:[id number] :1970 Admit Date: [id number] Physicians: Alexander Nichols [...] Diagnoses Acute recurrent pancreatitis Rajeev Cantor MD [address] [place] [address], [place] [address] [facility] Reason Comments Abdominal Pain Pt c/o [...] Sabrina Dee MD, MPH [address] [place] [address] Referral ID Status Reason Start Date Expiration Date V isits Requested Visits Authorized [id number] New Request 12/16/2021 01/10/2023 1 1 Specialty Diagnoses / Procedures Referred By Zia t Referred To Contact Diagnoses Recurrent acute pancreatitis Procedures UPPER EUS SD EGD US GUIDED TRANSMURAL INJXN/FIDUCIAL MARKER Sabrina Dee MD, MPH [address] [place] [phone] Referral ID Status Reason Start Date Expiration Date V isits Requested Visits Authorized [id number] New Request 12/16/2021 01/10/2023 1 1 Specialty Diagnoses / Procedures Referred By Kangac t Referred To Contact Diagnoses Encounter for screening colonoscopy Procedures SCREENING COLONOSCOPY SD COLON CA SCRN NOT HI RSK IND Sabrina Dee MD, MPH [address] [place] [phone] Referral ID Status Reason Start Date Expiration Date V isits Requested Visits Authorized [id number] New Request 12/16/2021 01/10/2023 1 1 Reason Comments Follow-up 6 month follow up Specialty Diagnoses / Procedures Referred By Zia t Referred To Contact Diagnoses Alcohol-induced chronic pancreatitis Procedures UPPER EUS SD ESOPHAGOGASTRODUODENOSCOPY US SCOPE W/ADJ STRXRS Sabrina Dee MD, MPH [address] [place] [phone] Referral ID Status Reason Start Date Expiration Date V isits Requested Visits Authorized [id number] New Request 06/16/2022 07/11/2023 1 1 Reason Comments Follow-up Specialty Diagnoses / Procedures Referred By Zia t Referred To Contact Diagnoses Alcohol-induced chronic pancreatitis Procedures UPPER EUS SD EGD US GUIDED TRANSMURAL INJXN/FIDUCIAL MARKER Sabrina Dee MD, MPH [address] [place] [phone] Referral ID Status Reason Start Date Expiration Date V isits Requested Visits Authorized [id number] New Request 05/11/2023 06/04/2024 1 1 Referral ID Status Reason Start Date Expiration Date V isits Requested Visits Authorized [id number] New Request 12/23/2023 01/16/2025 1 1 Reason [...] with nausea vomiting. Her GI specialist at [facility] instructed her to come to [...] of pancreatitis. Established with GI at [facility]. Reason Comments New Patient Chronic Pancreatitis Reason Comments Abdominal Pain Hx of pancreatitis r eports she is having a flare for a couple days Specialty Diagnoses / Procedures Referred By Zia espinal Referred To Contact Diagnoses Acute on chronic pancreatitis (HCC) Raji Gilliam MD [address] [place] [address] Phone: tel: fax: [facility] [address] [place] [address] Referral ID Status Reason Start Date Expiration Date Visits Re quested Visits Authorized [id number] 1 1 INFORMATION SOURCE (unrecogn ized section and content) DATE CREATED AUTHOR 03/09/2018 [facility] DATE CREATED AUTHOR AUTHOR'S ORGANIZ ATION 06/18/2022 [facility] DATE CREATED AUTHOR AUTHOR'S ORGANIZ ATION 01/20/2024 [facility] DATE CREATED AUTHOR AUTHOR'S ORGANIZ ATION 10/05/2024 [facility] DATE CREATED AUTHOR AUTHOR'S ORGANIZ ATION 10/10/2024 [facility] DATE CREATED AUTHOR AUTHOR'S ORGANIZ ATION 10/25/2024 [facility] DATE CREATED AUTHOR AUTHOR'S ORGANIZ ATION 10/26/2024 [facility] DATE CREATED AUTHOR AUTHOR'S ORGANIZ ATION 10/29/2024 [facility] DATE CREATED AUTHOR AUTHOR'S ORGANIZ ATION 11/11/2024 [facility] DATE CREATED AUTHOR AUTHOR'S ORGANIZ ATION 11/26/2024 [facility] DATE CREATED AUTHOR AUTHOR'S ORGANIZ ATION 11/27/2024 [facility] DATE CREATED AUTHOR AUTHOR'S ORGANIZ ATION 11/28/2024 [facility] DATE CREATED AUTHOR AUTHOR'S ORGANIZ ATION 12/10/2024 [facility] DATE CREATED AUTHOR AUTHOR'S ORGANIZ ATION 12/13/2024 [facility] DATE CREATED AUTHOR AUTHOR'S ORGANIZ ATION 12/13/2024 [facility] Care Teams (unrecognized sec tion and [...] Active Christa Lopez PA-C Emergency Provider Active Electric Deicer Assembler Relationship Specialty Start Date End Date Pineda Troy MD [address] [place] [address] PCP - Referring 1 Gastroenterology 09/25/17 [facility]ly [facility] Other [address] [place] [address] PCP - General 11/28/19 Electric Deicer Assembler Relationship Specialty Start Date End Date Pineda Troy MD [address] [place] [phone] PCP - Referring 1 Gastroenterology 09/25/17 [facility] [address] [facility] [place] [address] PCP - General 11/28/19 Electric Deicer Assembler Relationship Specialty Start Date End Date Pineda Troy MD [address] [place] [phone] PCP - Referring 1 Gastroenterology 09/25/17 [facility] [address] [facility] [place] [address] PCP - General 11/28/19 Electric Deicer Assembler Relationship Specialty Start Date End Date Pineda Troy MD [address] [place] [phone] PCP - Referring 1 Gastroenterology 09/25/17 [facility] [address] [facility] [place] [address] PCP - General 11/28/19 Team Status: Inactive Member Role Status Dates NON STAFF Primary Care Provider Active Agustin Llanes MD Emergency Provider Active Electric Deicer Assembler Relationship Specialty Start Date End Date Pineda Troy MD [address] [place] [phone] PCP - Referring 1 Gastroenterology 09/25/17 [facility] [address] [facility] [place] [address] PCP - General 11/28/19 Electric Deicer Assembler Relationship Specialty Start Date End Date Pineda Troy MD [address] [place] [phone] PCP - Referring 1 Gastroenterology 09/25/17 [facility] [address] [facility] [place] [address] PCP - General 11/28/19 Team Status: Inactive Member Role Status Dates NON STAFF Primary Care Provider Active Diomedes Posadas APRN Emergency Provider Active Team Status: Inactive Member Role Status Dates NON STAFF Primary Care Provider Active Start: April 02, 2023 End: April 02, 2023 Diomedes Posadas APRN Emergency Provider Active Start: April [...] April 18, 2023 End: April 18, 2023 Electric Deicer Assembler Relationship Specialty Start Date End Date Pineda Troy MD [facility] [address] [place], [place] [phone] PCP - Referring 1 Gastroenterology 09/25/17 [facility] [address] [facility] [address] PCP - General 11/28/19 Electric Deicer Assembler Relationship Specialty Start Date End Date Pineda Troy MD PCP - Referring 1 Gastroenterology 09/25/17 [facility] [address] [facility] [place] [address] PCP - General 11/28/19 Electric Deicer Assembler Relationship Specialty Start Date End Date Pineda Troy MD PCP - Referring 1 Gastroenterology 09/25/17 [facility] Other [address] [place] [address] PCP - General 11/28/19 Electric Deicer Assembler Relationship Specialty Start Date End Date Formerly [facility] [address] PCP - General Family Medicine 03/26/23 Electric Deicer Assembler Relationship Specialty Start Date End Date Formerly [facility] [address] [place], [place] PCP - General Family Medicine 03/26/23 Electric Deicer Assembler Relationship Specialty Start Date End Date Formerly [facility] [address] [place], [place] PCP - General Family Medicine 03/26/23 Team Status: Inactive Member Role Status Dates NON STAFF Primary Care Provider Active Start: October 19, 2024 End: October 19, 2024 Diomedes Posadas APRN Emergency Provider Active Start: October 19, 2024 End: October 19, 2024 Team Status: Inactive Member Role Status Dates NON STAFF Primary Care Provider Active Start: October 28, 2024 End: October 28, 2024 Andrew Ponce PA-C Emergency Provider Active Start: October 28, 2024 End: October 28, 2024 Electric Deicer Assembler Relationship Specialty Start Date End Date Cynthia Galindo [address] [place], [place] [phone] PCP - General Family Medicine 07/30/11 Electric Deicer Assembler Relationship Specialty Start Date End Date Cynthia Galindo [address] [place], [place] [phone] PCP - General Family Medicine 07/30/11 Goals (unrecognized section and content) Goals may [...] ONCE, 1 dose, On Thu08/08/24 at 1900 0 (Given - Provid er: Danay Knutson RN) famotidine (PEPCID) 20 MG/2ML 20 mg in sodium chloride (PF) 0.9 % 10 mL injection (COMPLETED) 20 mg, IntraVENous, ONCE, 1 dose, On Thu08/08/24 at 1900, IV Push over minimum of 2 minutes - Dilute with 10 mL NS 1919 (Given - Provid er: Danay Knutson RN) [...] ONCE, 1 dose, On Thu08/08/24 at 1900 1919 (Given - Provid er: Danay Knutson RN) [...] specifically ordered. 1923 (Given - Provid er: Lavern Wolfe RN) HYDROmorphone HCl PF (DILAUDID) injection 0.5 mg (COMPLETED) 0.5 mg, IntraVENous, ONCE, 1 dose, On Thu09/20/24 at 2044, If oral and IV narcotics ordered, use oral first and only use IV if oral is ineffective or cannot take oral. Do Not give oral and IV within 1 hour of each other unless specifically ordered. 2036 (Given - Provid er: Lavern Wolfe RN) lactated ringers bolus 1,000 mL (COMPLETED) 1,000 mL, IntraVENous, at 495.9 mL/hr, Administer over 121 Minutes, ONCE, On Thu09/20/24 at 1915, For 1 dose 1923 (New Bag - Prov ider: Lavern Wolfe RN)2133 (Stopped - Provider: Joyce Soria RN) ondansetron (ZOFRAN) injection 4 mg (COMPLETED) 4 mg, IntraVENous, ONCE, 1 dose, On Thu09/20/24 at 1930 1923 (Given - Provid er: Lavern Wolfe RN) Scheduled Medication Order 09/25/2024 09/26/2024 [...] (Given - Provid er: Mary Howard RN) Scheduled Medication Order 11/07/2024 11/08/2024 11/09/2024 famotidine (PEPCID) 20 MG/2ML 20 mg in sodium chloride (PF) 0.9 % 10 mL injection 20 mg, IntraVENous, 2 TIMES DAILY, First dose on Thu11/06/24 at 2215, Until Discontinued, IV Push over minimum of 2 minutes - Dilute with 10 mL NS 1001 (Given - Provider: Jazzy Ochoa RN)1952 (Given - Provider: Monik Barajas RN) 743 (Given - Provider: Colin Corrigan, JOSE LUIS)2007 (Given - Provider: Michelle Centeno RN) 0857 (Given - Provider: Maggie Sullivan, RN)2100 (Due) LORazepam (ATIVAN) injection 1 mg (COMPLETED) 1 mg, IntraVENous, ONCE, 1 dose, On Thu11/08/24 at 1230, Immediately prior to intravenous use, lorazepam Injection must be diluted with at least an equal volume of compatible solution (NS or D5W). 1300 (Given - Provider: Monik Amin RN - Comment: given to patient in MRI; no scanner was available to use) LORazepam (ATIVAN) injection 1 mg (COMPLETED) 1 mg, IntraVENous, ONCE, 1 dose, On Thu11/08/24 at 2215, Immediately prior to intravenous use, lorazepam Injection must be diluted with at least an equal volume of compatible solution (NS or D5W). 2230 (Given - Provider: Michelle Centeno RN) sodium chloride flush 0.9 % injection 10 mL 10 mL, IntraVENous, EVERY 12 HOURS SCHEDULED (2 times per day), First dose on Thu11/06/24 at 2215, Until Discontinued 1002 (Not Given - Provider: Jazzy Ochoa RN - Reason: IV Fluid Infusing)1952 (Given - Provider: Monik Barajas RN) 45 (Given - Provider: Colin Corrigan RN)2133 (Not Given - Provider: Michelle Centeno RN - Reason: IV Fluid Infusing) 0858 (Given - Provider: Maggie Sullivan RN)2100 (Due) Continuous Medication Order 11/07/2024 11/08/2024 11/09/2024 0.9 % sodium chloride infusion () IntraVENous, at 100 mL/hr, CONTINUOUS, Starting on Thu11/06/24 at 2215, For 24 hours, Complete last bag that is running at 24 hours and then saline lock IV 0708 (Stopped - Provider: Monik Barajas, RN)0708 (New Bag - Provider: Jazzy Ochoa, JOSE LUIS)1653 (New Bag - Provider: Jazzy Ochoa, JOSE LUIS) 0101 (Rate/Dose Verify - Provider: Monik Barajas RN) 0.9 % sodium chloride infusion () IntraVENous, at 100 mL/hr, CONTINUOUS, Starting on Thu11/07/24 at 2330, For 24 hours 0235 (New Bag - Provider: Monik Barajas RN)1539 (New Bag - Provider: Colin Corrigan RN) PRN Medication Order 11/07/2024 11/08/2024 11/09/2024 0.9 % sodium chloride infusion IntraVENous, at 5-250 mL/hr, PRN, if patient receiving piggyback infusions and maintenance fluids are not ordered OR KVO fluids to protect IV site / prevent frequent line interruptions/ long duration, Starting on Thu11/06/24 at 2157, For piggyback infusion, administer at same rate as piggyback for a total of 25 mL. Enter 25 mL into dose field and piggyback rate into rate field of order. If piggyback is infusing at a rate less than 100 mL/hr, enter 25 mL into dose field and 100 mL/hr into rate field of order. For KVO fluids, enter rate of 20 mL/hr or less into rate field of order. acetaminophen (TYLENOL) suppository 650 mg(Linked Group 1) 650 mg, Rectal, EVERY 6 HOURS PRN, Starting on Thu11/06/24 at 2157, Until Discontinued, Pain Mild (1-3) OR per patient request for pain score (4-10), Fever, For temp greater than 100.4 F (38 C), Administer if oral route cannot be used. acetaminophen (TYLENOL) tablet 650 mg(Linked Group 1) 650 mg, Oral, EVERY 6 HOURS PRN, Starting on 11/06/24 at 2157, Until Discontinued, Pain Mild (1-3) OR per patient request for pain score (4-10), Fever, For temp greater than 100.4 F (38 C), Maximum dose of acetaminophen is 4000 mg from all sources in 24 hours. gadoteridol (PROHANCE) injection 11 mL (COMPLETED) 11 mL, IntraVENous, IMG ONCE PRN, 1 dose, Starting on Thu11/08/24 at 1129, Until Thu11/08/24 at 1130, Other 1130 (Given - Provider: Cayla Law) HYDROmorphone HCl PF (DILAUDID) injection 0.25 mg(Linked Group 2) 0.25 mg, IntraVENous, EVERY 3 HOURS PRN, Starting on Thu11/09/24 at 0634, Until Discontinued, Pain Moderate (4-6) OR per patient request for pain score (7-10), If oral and IV narcotics ordered, use oral first and only use IV if oral is ineffective or cannot take oral. Do Not give oral and IV within 1 hour of each other unless specifically ordered. 0857 (Given - Provider: Maggie Sullivan RN) HYDROmorphone HCl PF (DILAUDID) injection 0.5 mg (CANCELED) 0.5 mg, IntraVENous, EVERY 3 HOURS PRN, Starting on Thu11/06/24 at 2157, Until Thu11/09/24 at 0634, Pain Moderate (4-6) OR per patient request for pain score (7-10), If oral and IV narcotics ordered, use oral first and only use IV if oral is ineffective or cannot take oral. Do Not give oral and IV within 1 hour of each other unless specifically ordered. 0000 (Given - Provider: Lazaro Hager RN)0301 (Given - Provider: Lazaro Hager RN)0625 (See Alternative - Provider: Jazzy Ochoa RN)1001 (See Alternative - Provider: Jazzy Ochoa RN)1320 (See Alternative - Provider: Jazzy Ochoa RN)1649 (See Alternative - Provider: Jazzy Ochoa RN)1953 (See Alternative - Provider: Monik Barajas RN)2257 (See Alternative - Provider: Monik Barajas RN) 0217 (See Alternative - Provider: Monik Barajas RN)0745 (See Alternative - Provider: Colin Corrigan RN)1051 (See Alternative - Provider: Colin Corrigan RN)1646 (See Alternative - Provider: Lavern Monteiro RN)2007 (See Alternative - Provider: Michelle Centeno, RN) HYDROmorphone HCl PF (DILAUDID) injection 1 mg (CANCELED) 1 mg, IntraVENous, EVERY 3 HOURS PRN, Starting on Thu11/06/24 at 2157, Until Thu11/09/24 at 0634, Pain Severe (7-10), If oral and IV narcotics ordered, use oral first and only use IV if oral is ineffective or cannot take oral. Do Not give oral and IV within 1 hour of each other unless specifically ordered. 0000 (See Alternative - Provider: Lazaro Hager RN)0301 (See Alternative - Provider: Lazaro Hager RN)0625 (Given - Provider: Jazzy Ochoa RN)1001 (Given - Provider: Jazzy Ochoa RN)1320 (Given - Provider: Jazzy Ochoa RN)1649 (Given - Provider: Jazzy Ochoa RN)1953 (Given - Provider: Monik Barajas RN)2257 (Given - Provider: Monik Barajas RN) 0217 (Given - Provider: Monik Barajas RN)0745 (Given - Provider: Colin Corrigan, JOSE LUIS)1051 (Given - Provider: Colin Corrigan, JOSE LUIS)1646 (Given - Provider: Lavern Monteiro RN)2007 (Given - Provider: Michelle Centeno, RN) magnesium sulfate 2000 mg in 50 mL IVPB premix 2,000 mg, IntraVENous, at 25 mL/hr, Administer over 2 Hours, PRN, Other, Magnesium Replacement, Starting on Thu11/06/24 at 2157, Mag Lab Replacement Action 1.4-1.6 mg/dL 2,000 mg Total Dose Given as 1,000 mg IVPB x 2 doses or 2,000 mg IVPB x 1 dose 1.0-1.3 mg/dL 4,000 mg Total Dose Given as 1,000 mg IVPB x 4 doses or 2,000 mg IVPB x 2 doses Less than 1.0 mg/dL CALL PHYSICIAN and give 4,000 mg Total Dose Given as 1,000 mg IVPB x 4 doses or 2,000 mg IVPB x 2 doses Infuse at 1,000 mg/hr consecutively Repeat Mag level 1 hour after final administration Protocol not for use in Patients with CrCl less than 30ml/min ondansetron (ZOFRAN) injection 4 mg(Linked Group 3) 4 mg, IntraVENous, EVERY 6 HOURS PRN, Starting on 11/06/24 at 2157, Until Discontinued, Nausea, Vomiting, Administer if oral route cannot be used. 0301 (Given - Provider: Lazaro Hager RN)1001 (Given - Provider: Jazzy Ochoa RN)1650 (Given - Provider: Jazzy Ochoa RN)2256 (Given - Provider: Monik Barajas RN) 0745 (Given - Provider: Colin Corrigan RN)1643 (Given - Provider: Lavern Monteiro RN) ondansetron (ZOFRAN-ODT) disintegrating tablet 4 mg(Linked Group 3) 4 mg, Oral, EVERY 8 HOURS PRN, Starting on 11/06/24 at 2157, Until Discontinued, Nausea, Vomiting 0301 (See Alternative - Provider: Lazaro Hager RN)1001 (See Alternative - Provider: Jazzy Ochoa RN)1650 (See Alternative - Provider: Jazzy Ochoa RN)2256 (See Alternative - Provider: Monik Barajas RN) 0745 (See Alternative - Provider: Colin Corrigan, JOSE LUIS)1643 (See Alternative - Provider: Lavern Monteiro RN) polyethylene glycol (GLYCOLAX) packet 17 g 17 g, Oral, DAILY PRN, Starting on 11/06/24 at 2157, Until Discontinued, Constipation, First line therapy for constipation potassium bicarb-citric acid (EFFER-K) effervescent tablet 40 mEq(Linked Group 4) 40 mEq, Oral, PRN, Starting on 11/06/24 at 2157, Until Discontinued, Per Potassium Replacement Protocol, Administer as alternative if patient unable to tolerate oral tablet. K Lab Replacement Action 3.1 to 3.5 40 mEq ORAL x 1 Under 3.1 Refer to IV replacement protocol Recheck K level in AM. Protocol not for use in patients with CrCl lessthan 30 mL/min. Do not chew or crush. Dissolve flavored tablets completely in 3 to 4 ounces of cold water; unflavored tablets may be dissolved in 3 to 4 ounces of cold juice. Patient to sip slowly over a 5 to 10 minute period. May further dilute if GI adverse effects occur. potassium chloride (KLOR-CON M) extended release tablet 40 mEq(Linked Group 4) 40 mEq, Oral, PRN, Starting on 11/06/24 at 2157, Until Discontinued, Potassium Replacement, May give alternative linked oral order (ordered as effervescent, packet, or liquid solution) if patient unable to tolerate tablet. K Lab Replacement Action 3.1 to 3.5 40 mEq ORAL x 1 Under 3.1 Refer to IV replacement protocol Recheck K level in AM. Protocol not for use in patients with CrCl less than 30 mL/min. Do not crush, chew, or suck on tablet. Tablet may also be broken in half and each half swallowed separately. potassium chloride 10 mEq/100 mL IVPB (Peripheral Line)(Linked Group 4) 10 mEq, IntraVENous, PRN, Starting on Thu11/06/24 at 2157, Until Discontinued, at 100 mL/hr, Other, Potassium Replacement, K Lab Replacement Action 2.7 to 3.0 10 mEq IVPB x 6 doses (60 mEq Total) Under 2.7 CALL PROVIDER and administer 10 mEq IVPB x 6 doses (60 mEq Total) Infuse at 10 mEq/hr consecutively. Repeat Potassium lab 1 hour after final administration., Protocol not for use in patients with CrCl less than 30 mL/min. sodium chloride flush 0.9 % injection 10 mL 10 mL, IntraVENous, PRN, Starting on Thu11/06/24 at 2157, Until Discontinued, Line Care, After every IV line use Linked Groups Order Group 1: acetaminophen (TYLENOL) tablet 650 mgJump to med 650 mg, Oral, EVERY 6 HOURS PRN, Starting on 11/06/24 at 2157, Until Discontinued, Pain Mild (1-3) OR per patient request for pain score (4-10), Fever, For temp greater than 100.4 F (38 C), Maximum dose of acetaminophen is 4000 mg from all sources in 24 hours. Or acetaminophen (TYLENOL) suppository 650 mgJump to med 650 mg, Rectal, EVERY 6 HOURS PRN, Starting on 11/06/24 at 2157, Until Discontinued, Pain Mild (1-3) OR per patient request for pain score (4-10), Fever, For temp greater than 100.4 F (38 C), Administer if oral route cannot be used. Group 2: HYDROmorphone HCl PF (DILAUDID) injection 0.25 mgJump to med 0.25 mg, IntraVENous, EVERY 3 HOURS PRN, Starting on Thu11/09/24 at 0634, Until Discontinued, Pain Moderate (4-6) OR per patient request for pain score (7-10), If oral and IV narcotics ordered, use oral first and only use IV if oral is ineffective or cannot take oral. Do Not give oral and IV within 1 hour of each other unless specifically ordered. Group 3: ondansetron (ZOFRAN-ODT) disintegrating tablet 4 mgJump to med 4 mg, Oral, EVERY 8 HOURS PRN, Starting on 11/06/24 at 2157, Until Discontinued, Nausea, Vomiting Or ondansetron (ZOFRAN) injection 4 mgJump to med 4 mg, IntraVENous, EVERY 6 HOURS PRN, Starting on 11/06/24 at 2157, Until Discontinued, Nausea, Vomiting, Administer if oral route cannot be used. Group 4: potassium chloride (KLOR-CON M) extended release tablet 40 mEqJump to med 40 mEq, Oral, PRN, Starting on 11/06/24 at 2157, Until Discontinued, Potassium Replacement, May give alternative linked oral order (ordered as effervescent, packet, or liquid solution) if patient unable to tolerate tablet. K Lab Replacement Action 3.1 to 3.5 40 mEq ORAL x 1 Under 3.1 Refer to IV replacement protocol Recheck K level in AM. Protocol not for use in patients with CrCl less than 30 mL/min. Do not crush, chew, or suck on tablet. Tablet may also be broken in half and each half swallowed separately. Or potassium bicarb-citric acid (EFFER-K) effervescent tablet 40 mEqJump to med 40 mEq, Oral, PRN, Starting on 11/06/24 at 2157, Until Discontinued, Per Potassium Replacement Protocol, Administer as alternative if patient unable to tolerate oral tablet. K Lab Replacement Action 3.1 to 3.5 40 mEq ORAL x 1 Under 3.1 Refer to IV replacement protocol Recheck K level in AM. Protocol not for use in patients with CrCl lessthan 30 mL/min. Do not chew or crush. Dissolve flavored tablets completely in 3 to 4 ounces of cold water; unflavored tablets may be dissolved in 3 to 4 ounces of cold juice. Patient to sip slowly over a 5 to 10 minute period. May further dilute if GI adverse effects occur. Or potassium chloride 10 mEq/100 mL IVPB (Peripheral Line)Jump to med 10 mEq, IntraVENous, PRN, Starting on 11/06/24 at 2157, Until Discontinued, at 100 mL/hr, Other, Potassium Replacement, K Lab Replacement Action 2.7 to 3.0 10 mEq IVPB x 6 doses (60 mEq Total) Under 2.7 CALL PROVIDER and administer 10 mEq IVPB x 6 doses (60 mEq Total) Infuse at 10 mEq/hr consecutively. Repeat Potassium lab 1 hour after final administration., Protocol not for use in patients with CrCl less than 30 mL/min. Source Comments (unrecognize d section and content) In the event this informatio n is protected by the Federal Confidentiality of Alcohol and Drug Abuse Patient Records regulations: The Federal rules restrict any use of the information to criminally investigate or prosecute any alcohol or drug abuse patient.[facility] the event this information is protected by the Federal Confidentiality of Alcohol and Drug Abuse Patient Records regulations: The Federal rules restrict any use of the information to criminally investigate or prosecute any alcohol or drug abuse patient.[facility] the event this information is protected by the Federal Confidentiality of Alcohol and Drug Abuse Patient Records regulations: The Federal rules restrict any use of the information to criminally investigate or prosecute any alcohol or drug abuse patient.[facility] FOR RECORDS PERTAINING TO PATIENTS WHO ARE [...] BE BASED ON THE PRIMARY CLINICAL RECORDS. [facility] [employer] [facility]. provides no warranty or guarantee of the accuracy or completeness of information in this document.
[2024-12-16 22:11] VITALS: BP 164/78; PULSE 104; TEMP 37.1; O2SAT 99; BMI 21.0
[2024-12-16 22:50] LABS: Hematocrit 39.4 % (36.0-48.0); Hemoglobin 13.2 g/dL (12.0-16.0); Immature Granulocytes Abs Auto 0.02 10^3/uL (0.00-0.03); Immature Granulocytes Pct Auto 0.2 % (0.0-0.5); Lymphocytes Absolute Auto 2.9 10^3/uL (1.2-3.8); Mean Corpuscular HGB Conc 33.5 g/dL (29.9-35.2); Mean Corpuscular Hemoglobin 32.1 pg (26.7-34.0); Mean Corpuscular Volume 95.9 fL (81.0-99.0); Platelet Count 321 10^3/uL (150-450); Red Blood Count 4.11 10^6/uL (4.20-5.40); White Blood Count 12.4 10^3/uL (4.0-11.0)
[2024-12-16] MEDS: 0.9 % SODIUM CHLORIDE 1,000 ML 1000 ML IV (22:52)
[2024-12-16] MEDS: HYDROMORPHONE HCL 1 MG/ML CARTRIDGE IV (22:53)
[2024-12-17 00:04] LABS: Lipase 46.0 U/L (16.0-77.0)
[2024-12-17] MEDS: HYDROMORPHONE HCL 1 MG/ML CARTRIDGE IV (00:44)
[2024-12-17] MEDS: PROMETHAZINE HCL 25 MG in 0.9 % SODIUM CHLORIDE 50 ML 204 MG IV (00:44)
[2024-12-17 00:48] VITALS: BP 122/85; PULSE 93; O2SAT 95
--- NOTE | 2024-12-17 04:47 | ED_ITS ---
HPI HPI - General Adult General Chief complaint: Abdominal Pain Stated complaint: Abdominal Pain Time Seen by Provider: 12/16/24 22:13 Source: patient Mode of arrival: walk-in History of Present Illness HPI narrative: Patient is a 54-year-old female presenting to the emergency department for evaluation of epigastric pain. 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 She has been sober for the last 14 years. She states this episode of epigastric pain is consistent with her prior episodes of pancreatitis. She states she has been having vomiting and decreased p.o. intake over the last 24 hours. She states he was recently admitted at the [facility] for this, and was treated with IV fluids and antiemetics. She had no pancreatic stents or surgical procedures at that time. Other than her typical pancreatitis symptoms, she has no other new symptoms. She denies any chest pain or shortness of breath. No fevers or chills. No dysuria or hematuria. Related Data Home Medications ?Medication ?Instructions ?Recorded ?Confirmed dicyclomine 10 mg capsule 10 mg PO BID 09/13/24 famotidine 20 mg tablet 20 mg PO Q12H 09/13/2410/13 ondansetron 4 mg disintegrating 4 mg PO Q8H PRN nausea and vomiting 09/13/24 10/13/24 tablet Allergies Allergy/AdvReac Type Severity Reaction Status Date / Time haloperidol (From Haldol) Allergy Intermediate Hives Verified 12/16/24 22:11 ibuprofen (From Motrin) Allergy Intermediate Hives Verified 12/16/24 22:11 tramadol Allergy Intermediate Hives Verified 12/16/24 22:11 Penicillins Allergy Unknown Anaphylaxis Verified 12/16/24 22:11 morphine Allergy swells Verified 12/16/24 22:11 prochlorperazine (From Allergy Hives Verified 12/16/24 22:11 Compazine) ketorolac (From Toradol) AdvReac Severe Hives Verified 12/16/24 22:11 fentanyl AdvReac Intermediate Hives Verified 12/16/24 22:11 Opioid HPI Opioid Management Most Recent Opioid Data: Last Pain Scale 9 12/04/24, 19:22 Last MAR Pain Assessment 12/16/24, 22:53 Review of Systems ROS Status of ROS 10 or more systems reviewed and unremark able except as noted in history and below [facility] Medical History (Updated 12/17/24 @ 00:57 by Emir Parikh DO) COPD (chronic obstructive pulmonary disease) ?J44.9 - Chronic obstructive pulmonary disease, unspecified (ICD-10) Chronic pancreatitis ?K86.1 - Other chronic pancreatitis (ICD-10) Smoker ?F17.200 - Nicotine dependence, unspecified, uncomplicated (ICD-10) History of gastrostomy tube placement Surgical History (Updated 04/03/23 @ 12:10 by Marni Farley) Hx of esophagogastroduodenoscopy ?Z98.890 - Other specified postprocedural states (ICD-10) H/O colonoscopy ?Z98.890 - Other specified postprocedural states (ICD-10) Hx of cholecystectomy ?Z90.49 - Acquired absence of other specified parts of digestive tract (ICD- 10) H/O: hysterectomy ?Z90.710 - Acquired absence of both cervix and uterus (ICD-10) Social History (Updated 04/03/23 @ 12:08 by Marni Farley) Smoking status: Current every day smoker Non-prescribed substance use: denies use Highest level of school completed/degree received: high school graduate Little interest or pleasure in doing things: not at all Feeling down, depressed, or hopeless: not at all Exam Narrative Exam Narrative: CONSTITUTIONAL: Appears uncomfortable but nontoxic, answering questions and following commands appropriately. SKIN: Was warm and dry. EYES: Sclerae white. EARS, NOSE, THROAT: Moist oral mucosa. RESPIRATORY: Clear to auscultation bilaterally, no wheezes, crackles, or stridor, no use of accessory muscles CARDIOVASCULAR: Normal rate and regular rhythm. There is no S3, S4, murmur, rub. GASTROINTESTINAL: There is tenderness to palpation in the epigastrium without rebound tenderness or guarding. Negative Don sign. MUSCULOSKELETAL: No peripheral edema. NEUROLOGIC: Patient is awake and alert. Facies were symmetrical. Constitutional Vital Signs, click to edit/add: Last Vital Signs Temp 98.8 F 12/16/24 22:11 Pulse 93 H 12/17/24 00:48 Resp 16 12/17/24 00:48 BP 122/85 12/17/24 00:48 Pulse Ox 95 12/17/24 00:48 O2 Del Method Room Air 12/17/24 00:48 Course Vital Signs Vital signs: Vital Signs Temperature 98.8 F 12/16/24 22:11 Pulse Rate 104 H 12/16/24 22:11 Respiratory Rate 20 12/16/24 22:11 Blood Pressure 164/78 H 12/16/24 22:11 Pulse Oximetry 99 12/16/24 22:11 Oxygen Delivery Method Room Air 12/16/24 22:11 Temperature 98.8 F 12/16/24 22:11 Pulse Rate 93 H 12/17/24 00:48 Respiratory Rate 16 12/17/24 00:48 Blood Pressure 122/85 12/17/24 00:48 Pulse Oximetry 95 12/17/24 00:48 Oxygen Delivery Method Room Air 12/17/24 00:48 Medical Decision Making MDM Narrative Medical decision making narrative: Patient is a 54-year-old female, longstanding history of chronic pancreatitis secondary to alcohol use, presenting to the emergency department with an acute exacerbation of her pancreatitis symptoms/epigastric pain. Her vital signs arrival were within normal limits. She is afebrile and hemodynamically stable. There is tenderness palpation epigastrium on exam without peritoneal signs/rebound tenderness/guarding. Differential diagnose includes acute on chronic pancreatitis, dehydration, ELIECER, gastritis. IV was established and laboratory studies were obtained. She was treated with 1 L bolus of normal saline, IV Zofran, and IV Dilaudid. Laboratory studies were significant for mild leukocytosis. No anemia. No thrombocytopenia. Lipase not elevated. On reevaluation, patient states she feels improved but is requesting 1 more dose of analgesics/antiemetics. She was given additional dose of IV Dilaudid and IV Phenergan. On further reevaluation, the patient states she feels significant improved and feels comfortable being discharged home. She is tolerating [place] of p.o. I urged the patient return to the emergency department should her symptoms worsen. She is instructed follow-up with her PCP for further care. Patient understands and agrees with plan. FINAL IMPRESSION: #Acute epigastric pain, improved #History of chronic pancreatitis DISPOSITION: Discharged home CONDITION: Fair Medical Records Medical records reviewed: Yes I reviewed the patient's medical records Lab Data Lab results reviewed: Yes I reviewed the patient's lab results Labs: Lab Results 12/16/24 12/16/24 Range/Units 22:44 23:45 WBC 12.4 H (4.0-11.0) 10^3/uL RBC 4.11 L (4.20-5.40) 10^6/uL Hgb 13.2 (12.0-16.0) g/dL Hct 39.4 (36.0-48.0) % MCV 95.9 (81.0-99.0) fL MCH 32.1 (26.7-34.0) pg MCHC 33.5 (29.9-35.2) g/dL RDW 12.3 (11.0-15.0) % Plt Count 321 (150-450) 10^3/uL MPV 9.6 (9.5-13.5) fL Neut % (Auto) 66.3 (43.0-75.0) % Lymph % (Auto) 23.0 (20.5-60.0) % [place] % (Auto) 9.2 (1.7-12.0) % Eos % (Auto) 0.7 L (0.9-7.0) % Baso % (Auto) 0.6 (0.2-2.0) % Neut # (Auto) 8.2 H (1.4-6.5) 10^3/uL Lymph # (Auto) 2.9 (1.2-3.8) 10^3/uL [place] # (Auto) 1.1 H (0.3-0.8) 10^3/uL Eos # (Auto) 0.1 (0.0-0.7) 10^3/uL Baso # (Auto) 0.1 (0.0-0.1) 10^3/uL Abs Immat Gran (auto) 0.02 (0.00-0.03) 10^3/uL Imm/Tot Granulo (auto) 0.2 (0.0-0.5) % Lipase 46.0 (16.0-77.0) U/L Discharge Plan Discharge Chief Complaint: Abdominal Pain Clinical Impression: Chronic pancreatitis Patient Disposition: Home, Self-Care Time of Disposition Decision: 00:57 Condition: Good Mode of Transportation: Private Vehicle Prescriptions / Home Meds: No Action famotidine 20 mg tablet 20 mg PO Q12H ondansetron 4 mg tablet,disintegrating 4 mg PO Q8H PRN (Reason: nausea and vomiting) dicyclomine 10 mg capsule 10 mg PO BID Print Language: French Instructions: Pancreatitis (ED) Referrals: [facility] [Primary Care Provider, Unknown] - 1 week Discharge Date/Time: 12/17/24 01:17
== END 2024-12-17 01:17 | disposition home or self-care (01) ==
PROVIDERS: Emergency Provider Student in an Organized Health Care Education/Training Program
DX: K86.0 Alcohol-induced chronic pancreatitis (principal); F17.200 Nicotine dependence, unspecified, uncomplicated
CPT/HCPCS: 36415; 80053; 82150; 83690; 85025; 96361; 96365; 96375; 96376; 99284; J1171; J2405; J2550

== ENCOUNTER 2024-12-18 19:45 | Emergency (ER) | payer OTHER, SELFPAY ==
[2024-12-18 19:49] VITALS: BP 144/86; PULSE 98; TEMP 37.3; O2SAT 98; BMI 20.9
[2024-12-18 20:00] VITALS: O2SAT 100
--- NOTE | 2024-12-18 20:08 | ED.ABDPAIN1 ---
HPI - Abdominal Pain General Chief Complaint: Abdominal Pain Stated Complaint: VOMITING, CHRONIC PANCREATITUS Time Seen by Provider: 12/18/24 19:47 Source: patient Mode of arrival: walk-in Limitations: no limitations History of Present Illness HPI narrative: This 54-year-old female with a history of chronic abdominal pain/chronic pancreatitis who was recently seen at [facility] presents for evaluation of ongoing epigastric abdominal pain with nausea and vomiting. She states she recently spent 3 days at [facility] for evaluation of her pancreatitis. She has had a pancreatic block in the past at [facility] which did not help. She states she had a feeding tube in the past and is being evaluated at [facility] for replacement of a new feeding tube due to her chronic nausea and vomiting. She was seen here yesterday and treated and released. She states she has Zofran for nausea but is not in any pain management program. They did increase her amitriptyline and pancreatic enzymes at the time of her hospitalization in [place]. Related Data Home Medications ?Medication ?Instructions ?Recorded ?Confirmed amitriptyline 25 mg tablet 25 mg PO DAILY 12/18/24 12/18/24 [id number](pork)24,000-76,000-120,000 1 cap PO TID 12/18/24 12/18/24 unit capsule,del rel (Creon) omeprazole 40 mg capsule,delayed 40 mg PO Q8H 12/18/24 12/18/24 release ondansetron HCl 4 mg tablet 4 mg PO Q8H PRN nausea and vomiting 12/18/24 12/18/24 Allergies Allergy/AdvReac Type Severity Reaction Status Date / Time haloperidol (From Haldol) Allergy Intermediate Hives Verified 12/16/24 22:11 ibuprofen (From Motrin) Allergy Intermediate Hives Verified 12/16/24 22:11 tramadol Allergy Intermediate Hives Verified 12/16/24 22:11 Penicillins Allergy Unknown Anaphylaxis Verified 12/16/24 22:11 morphine Allergy swells Verified 12/16/24 22:11 prochlorperazine (From Allergy Hives Verified 12/16/24 22:11 Compazine) ketorolac (From Toradol) AdvReac Severe Hives Verified 12/16/24 22:11 fentanyl AdvReac Intermediate Hives Verified 12/16/24 22:11 Review of Systems ROS Status of ROS 10 or more systems reviewed and unremarkable except as noted in history and below [facility] Medical History (Updated 12/18/24 @ 22:20 by María Johnson MD) COPD (chronic obstructive pulmonary disease) ?J44.9 - Chronic obstructive pulmonary disease, unspecified (ICD-10) Chronic pancreatitis ?K86.1 - Other chronic pancreatitis (ICD-10) Smoker ?F17.200 - Nicotine dependence, unspecified, uncomplicated (ICD-10) History of gastrostomy tube placement Surgical History (Updated 04/03/23 @ 12:10 by Marni Farley) Hx of esophagogastroduodenoscopy ?Z98.890 - Other specified postprocedural states (ICD-10) H/O colonoscopy ?Z98.890 - Other specified postprocedural states (ICD-10) Hx of cholecystectomy ?Z90.49 - Acquired absence of other specified parts of digestive tract (ICD-10) H/O: hysterectomy ?Z90.710 - Acquired absence of both cervix and uterus (ICD-10) Social History (Updated 04/03/23 @ 12:08 by Marni Farley) Smoking status: Current every day smoker Non-prescribed substance use: denies use Highest level of school completed/degree received: high school graduate Little interest or pleasure in doing things: not at all Feeling down, depressed, or hopeless: not at all Exam Narrative Exam Narrative: Vital signs and Nursing Notes reviewed: Patient is afebrile with an elevated pulse of 98 elevated blood pressure 144/86, she is not hypoxic with pulse ox of 100% on room air General: Awake, alert, oriented, uncomfortable appearing female vomiting into an emesis bag, no respiratory distress HEENT: Normocephalic atraumatic, mucous membranes are moist and pink, eyes are clear, normal conjunctiva, vision is grossly intact, no scleral icterus noted Neck: Supple, no meningeal signs, no anterior or posterior cervical lymphadenopathy Chest: Lungs are clear to auscultation with good air entry, there is no wheezing rhonchi or rales appreciated no accessory muscle use, patient is speaking in complete sentences-no chest wall tenderness to palpation CVS: Regular rate and rhythm S1-S2, no murmurs rubs or gallops, pulses are brisk and equal bilaterally ABD: Soft, flat, epigastric abdominal tenderness to palpation, no rebound guarding or rigidity, bowel sounds are normal, no pulsatile masses appreciated Extremities: Moving all extremities, no lower extremity tenderness or swelling noted, negative Homans' sign, pulses are brisk and equal bilaterally Skin: Normal in appearance without rash,pallor, petechiae or purpura Neuro: No focal deficits Constitutional Vital Signs, click to edit/add: Last Vital Signs Temp 99.2 F 12/18/24 19:49 Pulse 98 H 12/18/24 19:49 Resp 18 12/18/24 19:49 BP 142/80 H 12/18/24 21:48 Pulse Ox 100 12/18/24 20:00 O2 Del Method Room Air 12/18/24 20:00 Course Vital Signs Vital signs: Vital Signs Temperature 99.2 F 12/18/24 19:49 Pulse Rate 98 H 12/18/24 19:49 Respiratory Rate 18 12/18/24 19:49 Blood Pressure 144/86 H 12/18/24 19:49 Pulse Oximetry 98 12/18/24 19:49 Oxygen Delivery Method Room Air 12/18/24 19:49 Temperature 99.2 F 12/18/24 19:49 Pulse Rate 98 H 12/18/24 19:49 Respiratory Rate 18 12/18/24 19:49 Blood Pressure 142/80 H 12/18/24 21:48 Pulse Oximetry 100 12/18/24 20:00 Oxygen Delivery Method Room Air 12/18/24 20:00 MDM - Abdominal Pain MDM Narrative Medical decision making narrative: This 54-year-old female with a history of chronic abdominal pain and 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 Patient has been seen here multiple times recently also recently admitted to [facility] and followed up at [facility] recently where she was admitted for 3 days. She is being considered for a feeding tube due to her ongoing nausea and vomiting. She states that everything she eats she throws up. She does not have any fever. Her abdomen is soft with mild tenderness in the epigastrium which is typical for her. An IV was placed and she was medicated with IV fluids, Zofran, Protonix and 1 mg of Dilaudid. On reevaluation she states she is not feeling any better but does not appear to be actively vomiting after the Zofran and Protonix. She was given IV Phenergan. routine labs are reviewed. She has a normal white count and stable hemoglobin. Her lipase is elevated at 283, the range of her elevated lipase is between 40 and 300. Liver function test are normal with the exception of an elevated alkaline phosphatase which is typical for her. She complained of recurrent pain after her initial dose of Dilaudid and was given an additional IV dose. 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 Lab Data Labs: Lab Results 12/18/24 Range/Units 20:22 WBC 11.1 H (4.0-11.0) 10^3/uL RBC 4.15 L (4.20-5.40) 10^6/uL Hgb 13.6 (12.0-16.0) g/dL Hct 39.7 (36.0-48.0) % MCV 95.7 (81.0-99.0) fL MCH 32.8 (26.7-34.0) pg MCHC 34.3 (29.9-35.2) g/dL RDW 12.1 (11.0-15.0) % Plt Count 333 (150-450) 10^3/uL MPV 9.6 (9.5-13.5) fL Neut % (Auto) 65.6 (43.0-75.0) % Lymph % (Auto) 23.9 (20.5-60.0) % [place] % (Auto) 8.8 (1.7-12.0) % Eos % (Auto) 0.8 L (0.9-7.0) % Baso % (Auto) 0.6 (0.2-2.0) % Neut # (Auto) 7.3 H (1.4-6.5) 10^3/uL Lymph # (Auto) 2.7 (1.2-3.8) 10^3/uL [place] # (Auto) 1.0 H (0.3-0.8) 10^3/uL Eos # (Auto) 0.1 (0.0-0.7) 10^3/uL Baso # (Auto) 0.1 (0.0-0.1) 10^3/uL Abs Immat Gran (auto) 0.03 (0.00-0.03) 10^3/uL Imm/Tot Granulo (auto) 0.3 (0.0-0.5) % Sodium 140 (136-145) mmol/L Potassium 3.5 (3.5-5.1) mmol/L Chloride 103 (98-107) mmol/L Carbon Dioxide 29.6 (21.0-32.0) mmol/L Anion Gap 10.9 BUN 7.0 (7.0-18.0) mg/dL Creatinine 0.76 (0.55-1.02) mg/dL Est GFR ( Amer) >60 (>=60 mL/min/1.73m^2) Est GFR (Non-Af Amer) >60 (>=60 mL/min/1.73m^2) BUN/Creatinine Ratio 9.2 Glucose 102 (74-106) mg/dL Calcium 10.0 (8.5-10.1) mg/dL Total Bilirubin 0.2 (0.2-1.0) mg/dL AST 20 (15-37) U/L ALT 23 (14-59) U/L Alkaline Phosphatase 155 H (46-116) U/L Total Protein 7.5 (6.4-8.2) g/dL Albumin 3.7 (3.4-5.0) g/dL Globulin 3.8 g/dL Albumin/Globulin Ratio 1.0 Lipase 283.0 H (16.0-77.0) U/L Discharge Plan Discharge Chief Complaint: Abdominal Pain Clinical Impression: Chronic abdominal pain, Chronic pancreatitis Patient Disposition: Home, Self-Care Time of Disposition Decision: 22:20 Condition: Good Prescriptions / Home Meds: No Action ondansetron HCl 4 mg tablet 4 mg PO Q8H PRN (Reason: nausea and vomiting) omeprazole 40 mg capsule,delayed release(DR/EC) 40 mg PO Q8H amitriptyline 25 mg tablet 25 mg PO DAILY Creon 24,000-76,000 -120,000 unit capsule,delayed release(DR/EC) 1 cap PO TID Print Language: Sierra Leonean Instructions: Chronic Abdominal Pain (DC) Referrals: [facility] [Primary Care Provider, Unknown] - 1 week
--- OUTSIDE RECORDS SUMMARY | 2024-12-18 20:10 | XMS_ITS | CCD ---
Author Organization [facility] Care Team Providers Care Territory Supervisor Name Role Phone AlbertaDarrickimani Unavailable ALBERTA ALEXANDER Unavailable Unavailable [facility] KAYLEIGH, GENERIC Unavailable Unavailable [facility] KAYLEIGH, GENERIC Unavailable Unavailable RUPINDER NEGROI Unavailable Unavailable LIDARRICKWA Unavailable Unavailable MARIO MENDES Unavailable Unavailable LIDARRICKWA Unavailable Unavailable SARAH WALTON Unavailable Unavaila ble ALEXANDER NICHOLS Unavailable Unavailable KEERTHI NGUYEN Unavailable Unavailable [facility] KAYLEIGH, GENERIC Unavailable Unavailable KEERTHI NGUYEN Unavailable Unavailable LI DARRICKWA Unavailable Unavailable PHYSICIANS, [facility] Unavailable Unav ailable EUGENIA SHELTON Unavailable Unavailable PHYSICIANS, [facility] Unavailable Unav ailable Unavailable Primary Care Provider Unavailflorida Nichols Alexander Primary Care Provider Unavailable Primary Care Provider UnavailMarya Guajardo Unavailable NON STAFF Primary Care Provider UnavailDO Keaton Thompson Emergency Provider [phone] SALMA Amor Emergency Provider SALMA Lopez Emergency Provider Woodrow ALEXANDER, Pineda Espinal Unavailable [facility], Other Primary Care Provi mathew NON STAFF Primary Care Provider MD Agustin Baker Emergency Provider DR TRI HANSON Consulting Unavailable ARIC CHAUDHARY Attending Unavailable ARIC CHAUDHARY Admitting Unavailable [facility] Primary Care Unavailable DEMIAN ., ARIC Consulting Unavailable AGUSTIN MADRIGAL Consulting Unavailable YANNI FRASER Attending Unavailable YANNI FRASER Admitting Unavailable [facility] Primary Care Unavailable HEBERT MCPHERSON Consulting Unavailable AMINATA, DR RAJEEV Chan Consulting Unavailable AMINATA, DR RAJEEV Chan Attending Unavailable AMINATA, DR RAJEEV Chan Admitting Unavailable [facility] Primary Care Unavailable JANNY ., ANKIT BOYKIN Consulting [facility] IGGY ., MONIK Attending Unavailable IGGY ., MONIK Admitting Unavailable GRECHNY ., ANKIT BOYKIN [facility] Unavailable ANNELIESE, NICK Consulting Unavailable DEMIAN ., ARIC Consulting Unavailable AGUSTIN HIGHTOWER Consulting Unavailable ROLAN EUCEDA Consulting Unavailable AMINATA, DR RAJEEV Chan Consulting Unavailable BRIANNA, DR SHARON Silveira Attending [facility] REINECK, DR SHARON Silveira Admitting [facility] Unavailable BRIANNA, DR SHARON Silveira Consulting [facility] HANS ., NAT Consulting Unavailable HANS ., NAT Consulting Unavailable PAY ., DR MACEDO Attending Unavailable PAY ., DR MACEDO Admitting Unavailable [facility] Primary Care Unavailable ANNELIESE, NICK Consulting Unavailable ANNELIESE, NICK Attending Unavailable ANNELIESE, NICK Admitting Unavailable [facility] Primary Care Unavailable MILADIS BARRERA Consulting Unavailable DEMIAN ., ARIC Attending Unavailable DEMIAN ., ARIC Admitting Unavailable DEMIAN ., ARIC Consulting Unavailable [facility] Primary Care Unavailable ION KRUSE Consulting Unavailable YANNI FRASER Attending Unavailable YANNI FRASER Admitting Unavailable JANNY ., ANKIT BOYKIN Consulting [facility] Primary Care Unavailable LYNNE PERDOMO Consulting Unavailable DEMIAN ., ARIC Attending Unavailable DEMIAN ., ARIC Admitting Unavailable [facility] Primary Care Unavailable DEMIAN ., ARIC Consulting Unavailable DIAB ., ELENITA Consulting Unavailable DIAB ., ELENITA Attending Unavailable DIAB ., ELENITA Admitting Unavailable [facility] Primary Care Unavailable PAY ., DR MACEDO Consulting Unavailable PAY ., DR MACEDO Attending Unavailable PAY ., DR MACEDO Admitting Unavailable [facility] Primary Care Unavailable ANNELIESE, NICK Consulting Unavailable ANNELIESE, NICK Attending Unavailable ANNELIESE, NICK Admitting Unavailable [facility] Primary Care Unavailable AGUSTIN HIGHTOWER Unavailable DR RAJEEV KELLOGG Consulting Unavailable TANVIR Herron, DR GRANT Attending Unavailable TANVIR ., DR GRANT Admitting Unavailable [facility] Primary Care Unavailable TANVIR Herron, DR GRANT Consulting Unavailable NON STAFF Primary Care Provider Unavailabl e Saffle, ELECTRIC MULE OPERATOR Diomedes Serrano Emergency Provider [phone] NON STAFF Primary Care Provider Unavailabl e Saffle, ELECTRIC MULE OPERATORZach Serrano Emergency Provider DO Rivera Lopez Emergency Provider [phone] MD Darrel Kellogg Emergency Provider Pineda Troy MD Unavailable [phone] [facility], Other Primary Care Provi mathew Pineda Troy MD T Unavailable STEVE, SOMASHEKAR G Attending Unavailabl e [facility], OTHER Primary Care Un available SELF, SELF Referring Unavailable STEVE SOMASHEKAR G Attending Unavailabl e STEVE, SOMASHEKAR G Referring Unavailabl e [facility], OTHER Primary Care Un available STEVE, SOMASHEKAR G Referring Unavailabl e [facility], OTHER Primary Care Un available STEVE, SOMASHEKAR G Attending Unavailabl e Unavailable Primary Care Provider Unavailabl e [facility], [facility] Primary Care Provider Darrel Ferrer Attending Unavailable Ish Stokes Attending Unavailable Darrel Ferrer Attending Unavailable NON STAFF Primary Care Provider Unavailabl e Saffle Diomedes COSBY Emergency Provider [phone] Darrel Ferrer Attending Unavailable Ish Stokes Attending Unavailable Andrew Ponce PA-C Emergency Provider Diomedes Posadas Admitting Unavailable Diomedes Posadas Attending [...] Attending Unavailable Geno Martin Admitting Unavailable SERVICES, [facility] Unava ilable STEPHANIE MAHMOOD Attending Unavailable SERVICES, [facility] Unava ilable TABITHA NEWELL Attending Unavailable SERVICES, [facility] Unava ilable AGUSTIN MICHAEL Attending Unavailab le SERVICES, [facility] Unava ilable VIVIAN TRINH Attending Unavailable SERVICES, [facility] Unava ilable EMILIE JARVIS Attending Unavailable SERVICES, [facility] Unava ilable TABITHA NEWELL Attending Unavailable SERVICES, [facility] Unava ilable JYOTHI TRINH Attending Unavailable SERVICES, [facility] Unava ilable TABITHA NEWELL Attending Unavailable SERVICES, [facility] Unava ilable TABITHA NEWELL Attending Unavailable SERVICES, [facility] Unava ilable STEPHANIE MAHMOOD Attending Unavailable SERVICES, [facility] Unava ilable YANNI PARRA Attending Unavailable SERVICES, [facility] Unava ilable TABITHA NEWELL Attending Unavailable SERVICES, [facility] Unava ilable SHELBY PALMER Attending Unavailable [...] source) Metoclopramide Drug Allergy 07-20-19 17 [facility] (1 source) Haloperidol Drug Allergy 06-02-19 16 [facility] NSAIDs (1 source) Ibuprofen Drug Allergy 10-31-19 13 Hives, Swelling [facility] Opioid Agonists (2 sources) Morphine Drug Allergy 10-24-19 15 Hives [facility] Penicillins (antibiotic) (1 source) Penicillins Drug Allergy 10-31-19 13 Swelling [facility] Work Phone: (20 sources) haloperidol; Translations: [HALOPERIDOL] Propensity to adverse reactions to drug 06-02-19 16 [facility] (20 sources) ibuprofen; Translations: [IBUPROFEN] Propensity to adverse reactions to drug 08-22-19 12 Hives, Swelling, Anaphylaxis, Other (See Comments), Shortness Of Breath, Other: See Comments [facility] (6 sources) metoclopramide; Translations: [METOCLOPRAMIDE HCL] Propensity to adverse reactions to drug 07-01-19 17 [facility] (6 sources) penicillin g; Translations: [PENICILLIN G] Propensity to adverse reactions to drug 07-25-19 15 Anaphylaxis [facility] (20 sources) traMADol; Translations: [TRAMADOL] Propensity to adverse reactions to drug 07-25-19 15 Hives, Other: See Comments [facility] (20 sources) morphine; Translations: [MORPHINE] Drug Allergy 07-16-19 18 [facility] (17 sources) Enoxaparin; Translations: [ENOXAPARIN] Drug Allergy 08-23-19 20 Itching, Rash [place] (13 sources) Haloperidol; Translations: [HALOPERIDOL LACTATE] Drug Allergy 06-19-19 17 Swelling, Other: See Comments [place] (19 sources) Penicillins; Translations: [PENICILLINS] Propensity to adverse reactions to drug 08-22-19 12 Anaphylaxis, Swelling [place] (2 sources) Haloperidol; Translations: [Haldol] Drug Allergy 08-10-19 19 Unknown [facility] Repository (20 sources) fentaNYL; Translations: [Fentanyl] Drug Allergy 09-13-19 21 [facility] (15 sources) Ketorolac; Translations: [ketorolac] Drug Allergy 06-13-19 21 [facility] (10 sources) Ketorolac Drug Allergy 12-17-19 22 Hives, Itching [facility] (19 sources) Metoclopramide; Translations: [METOCLOPRAMIDE] Drug Allergy 07-01-19 17 Anxiety, Other: See Comments [facility] (1 source) Ibuprofen Drug Allergy 01-09-20 13 [facility] Repository (9 sources) Ketorolac; Translations: [Toradol] Drug Allergy [facility] Repository (1 source) Morphine Drug Allergy 08-10-19 19 [facility] Repository (1 source) Penicillins Drug allergy (disorder) 01-09-20 13 [facility] Rep[facility] (1 source) traMADol Drug Allergy 01-09-20 13 [facility] Repository (3 sources) Ketorolac trometamol Propensity to adverse reactions to drug 12-17-19 22 Hives, Itching [facility] (2 sources) Penicillins Propensity to adverse reactions to drug 10-31-19 13 Swelling [facility] Work Phone: (11 sources) Penicillins Propensity to adverse reactions to drug 10-10-19 18 Anaphylaxis [facility] Augmentra [facility] (11 sources) Prochlorperazine; Translations: [PROCHLORPERAZINE] Drug Allergy 03-18-19 25 Hives, Other (See Comments), Anaphylaxis [facility] (8 sources) Penicillin; Translations: [penicillin] Drug Allergy [facility] Repository (7 sources) Prochlorperazine; Translations: [Compazine] Drug Allergy [facility] Repository (1 source) Haloperidol Drug Allergy 10-29-19 25 [facility] Repository (1 source) Ibuprofen Drug Allergy 10-29-19 25 [facility] Repository (1 source) Morphine Drug Allergy 10-29-19 25 [facility] Repository (1 source) Penicillins Drug allergy (disorder) 10-29-19 25 [facility] Repository (1 source) Prochlorperazine Drug Allergy 10-29-19 25 [facility] Repository (1 source) traMADol Drug Allergy 10-29-19 25 [facility] Repository (3 sources) Penicillins Drug Allergy 08-22-19 12 Other: See Comments [facility] Medications Current Medications Medication Drug Class(es) [...] 30 tablet 11 12/01/2019 05/11/2023 Discontinued amylase 688630 unt / lipase 36206 unt / protease 10734 unt delayed release oral capsule (20 sources) Start: 11-02-2024 lipase-proteas e-amylase (CREON) 24,000-76,000 -120,000 unit delayed release capsule Indications: Chronic pancreatitis, unspecified pancreatitis type (HCC) , Epigastric pain , Loose stools , Exocrine pancreatic insufficiency (HCC) Take 2 caps by mouth 3 times daily with meals and 1 cap with each snack. Take 1st cap before meal starts and the 2nd cap residential through. Max of 10 capsules per day. 300 capsule 3 11/02/2024 Active Start: 12-23-2023 take 3 capsules by m outh twice daily at mealtime Pancreatic enzymes (Creon) 45884-31165-938488 units Cap DR Particles capsule Take 3 capsules by mouth 2 times daily with meals. 180 capsule 11 12/23/2023 Active Start: 05-11-2023 take 3 capsules by m outh twice daily at mealtime Pancreatic enzymes (Creon) 84129-81075 units Cap DR Particles capsule Take 3 capsules by mouth 2 times daily with meals. 180 capsule 11 05/11/2023 Active Start: 12-16-2021 End: 05-11-2023 take 46232-86588 capsules by mouth three times daily Eigquy-Rjsnddpb-Pboviun (Creon) 24,000-76,000 -120,000 unit capsule,delayed release(DR/EC) Discontinued [...] by mouth every week Ergocalciferol 1.25 MG (11915 UT) capsule Take 1 capsule by mouth once a week. 8 capsule 05/11/2023 Active Start: 01-28-2022 End: 03-19-2022 take 1 capsule by mouth every week ergocalciferol 1.25 MG (63525 UT) capsule Take 1 capsule by mouth [...] 40 mg/ml injection (1 source) Start: 11-06-2024 [place] (No Known Home Meds) (1 source) Start: 10-09-2021 [place] (No Known Home Meds) Active October 09, [...] tablet 1 09/29/2023 Active polyethylene glycol 3350 80632 mg powder for oral solution (2 sources) [...] Administer over 1 Hours, ONCE, On [facility] 04/07/24 at 1415, For 1 dose Start: 01-07-2024 End: 01-07-2024 1,000 mL (18.4 mL/kg), IntraVENous, at 983.6 mL/hr, Administer over 61 Minutes, ONCE, On [facility] 01/07/24 at 1445, For 1 dose, [...] Chronic Other aftercare (1 source) 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 12-13-2024 CNOV Office Visit (GGENMN ) ----- CHIOMA RAINEY ([id number]) 1970 F Date Time Provider Department 12/13/24 10:00 AM LINDSEY WILLARD GGKATELINMN During your visit today, we recorded the following information about you: Pulse Blood pressure Weight Height 87/minute 144/80 54 kg 1.575 m Lindsey Willard ALEA.SPECIAL NEEDS CAREGIVER 12/13/2024 1:10 PM Signed NAME: Chioma Rainey [...] use and chronic pancreatitis who presented to [facility] Main ED on 12/09 with progressively worsening epigastric pain and N/V x3 days. Was seen in emergency department 12/[address] scan with chronic findings but also a mucosal pancreatic wall thickening. She follows with [facility] GI outpatient and underwent a celiac [...] entire pancreas. - Celiac plexus block performed. [facility] 11/02/2024 IMPRESSION AND PLAN Chioma Cuellar (more content not included)... Normal [facility] CNDSon 12-11-2024 CNDS HNO ID: [id number] Author: ALEXUS YOUNGBLOOD PA-C Service: Hospital Medicine Author Type: Physician Auto Inspector Type: Discharge Summary Filed: 12/11/2024 09:45 Note Text: ----- Attestation signed by Marianna John MD at 12/11/2024 3:57 PM [facility] STAFF PHYSICIAN NOTE OF PERSONAL INVOLVEMENT IN CARE Patient seen and evaluated with the JOSE LUIS. I have reviewed the discharge summary obtained and documented by the physician medical assistant prn and I personally participated in the garcia [...] use and chronic pancreatitis who presented to [facility] Main ED on 12/09 with progressively worsening epigastric pain and N/V x3 days. Was seen in emergency department 12/[address] scan with chronic findings but also a mucosal pancreatic wall thickening. She follows with [facility] GI outpatient and underwent a celiac [...] John MD Primary Service: GIM 2 Physician Auto Inspector: Alexus Youngblood PA-C PATIENT CONDITION AT DISCHARGE: [...] SITE CAR (more content not included)... Normal [facility] CBC panel Auto (Bld)on 12-10 Erythrocyte distribution width (RBC) [Ratio] 12.2 % Normal 11.5-15.0 [facility] Comment on above: Order Comment: Speci men Type: BLOOD SPECIMENOrdering Facility: [facility] Address: [address] [place] [address] Performed By: #### 5 8410-2 ####[facility] [id number] [place] [address] [place] Hematocrit (Bld) [Volume fraction] 38.2 % Normal 36.0-46.0 [facility] Comment on above: Order Comment: Speci men Type: BLOOD SPECIMENOrdering Facility: [facility] Address: [address] [place] [address] Performed By: #### 5 8410-2 ####[facility] [id number] [place] [address] [place] Hemoglobin (Bld) [Mass/Vol] 13.0 g/dL Normal 11.5-15.5 [facility] Comment on above: Order Comment: Speci men Type: BLOOD SPECIMENOrdering Facility: [facility] Address: [address] [place] [address] Performed By: #### 5 8410-2 ####[facility] [id number] [place] [address] [place] MCH (RBC) [Entitic mass] 32.8 pg Normal 26.0-34.0 [facility] Comment on above: Order Comment: Speci men Type: BLOOD SPECIMENOrdering Facility: [facility] Address: [address] [place] [address] Performed By: #### 5 8410-2 ####[facility] [id number] [place] [address] [place] MCHC (RBC) [Mass/Vol] 34.0 g/dL Normal 30.5-36.0 [facility] Comment on above: Order Comment: Speci men Type: BLOOD SPECIMENOrdering Facility: [facility] Address: [address] [place] [address] Performed By: #### 5 8410-2 ####[facility] [id number] [place] [address] [place] MCV (RBC) [Entitic vol] 96.5 fL Normal 80.0-100.0 [facility] Comment on above: Order Comment: Speci men Type: BLOOD SPECIMENOrdering Facility: [facility] Address: [address] [place] [address] Performed By: #### 5 8410-2 ####[facility] [id number] [place] [address] [place] Nucleated RBC (Bld) [#/Vol] 10*3/uL Normal <0.01 [facility] Comment on above: Order Comment: Speci men Type: BLOOD SPECIMENOrdering Facility: [facility] Address: [address] [place] [address] Performed By: #### 5 8410-2 ####[facility] [id number] [place] [address] [place] Platelet mean volume (Bld) [Entitic vol] 9.4 fL Normal 9.0-12.7 [facility] Comment on above: Order Comment: Speci men Type: BLOOD SPECIMENOrdering Facility: [facility] Address: [address] [place] [address] Performed By: #### 5 8410-2 ####[facility] [id number] [place] [address] [place] Platelets (Bld) [#/Vol] 337 10*3/uL Normal 150-400 [facility] Comment on above: Order Comment: Speci men Type: BLOOD SPECIMENOrdering Facility: [facility] Address: [address] [place] [address] Performed By: #### 5 8410-2 ####[facility] [id number] [place] [address] [place] RBC (Bld) [#/Vol] 3.96 10*6/uL Normal 3.90-5.20 [facility] Comment on above: Order Comment: Speci men Type: BLOOD SPECIMENOrdering Facility: [facility] Address: [address] [place] [address] Performed By: #### 5 8410-2 ####[facility] [id number] [address] [address] [place] WBC (Bld) [#/Vol] 9.21 10*3/uL Normal 3.70-11.00 [facility] Comment on above: Order Comment: Speci men Type: BLOOD SPECIMENOrdering Facility: [facility] Address: [address] [place] [address] Performed By: #### 5 8410-2 ####[facility] [id number] [address] [address] [place] HISTORY PHYSICALon HISTORY PHYSICAL HNO ID: [id number] Author: STU REY PA-C Service: Hospital Medicine Author Type: Physician Auto Inspector Type: H&P Filed: 12/10/2024 08:04 Note Text: ----- Attestation signed by Marianna John MD at 12/11/2024 3:56 PM [facility] STAFF PHYSICIAN NOTE OF PERSONAL INVOLVEMENT IN CARE Patient seen and evaluated with the PA. I have reviewed the history and physical examination obtained and documented by the physician medical assistant prn and I personally participated in the garcia [...] SIGNATURE: Marianna John MD ----- [facility] MEDICINE HISTORY AND PHYSICAL EXAM SERVICE DATE: 12/10/2024 SERVICE TIME: 2:34 AM Primary Care Physician: Cynthia Galindo CNP NIGHT AND WEEKEND COVERAGE: Day: Please page GIM treatment team listed under [facility] Teams. Overnight (5:00PM --> 07:30AM): For patients on H80/H81/G80/G81/ED/EDTU/E 20 please page [phone] For patients on Any Other Floor including building, J83, J1-2 please page [phone] Subjective CHIEF COMPLAINT: Epigastric pain HPI: This is a 54-year-old female with remote history of alcohol use and chronic pancreatitis who presented to [facility] Main ED on 12/09 with progressively worsening epigastric pain and N/V x3 days. She is followed by gastroenterology here at [facility]. Was seen in emergency department 12/08 and [...] IV Dilaudid. Follows with GI here at [facility]. Last saw Lindsey Willard 11/02/2024. Recommended [...] she is not eating. She was at [facility] yesterday for this current episode. [...] 1 tablet by mouth daily at bedtime. amxgsf-vjxyynty-xtgpvvk (CREON) 24,000-76,000 -120,000 unit delayed release capsule No No Sig: Take 2 caps by mouth 3 times daily with meals and 1 cap with each snack. Take 1st cap before meal starts and the 2nd cap hill (more content not included)... Normal [facility] PT panel Coag (PPP)on 2024 INR Coag (PPP) [Relative time] 1.1 {INR} Normal 0.9-1.3 [facility] Comment on above: Order Comment: Speci men Type: BLOOD SPECIMENOrdering Facility: [facility] Address: [address] [place] [address] Result Comment: Danyelle min K Antagonist (VKA) Therapeutic Range: INR 2 to 3 (Target INR of 2.5) Note: For patients treated with VKA drugs, such as warfarin, the [employer] 2012 Guideline recommends [...] to 3.5 (target INR of 3). Tolu LÓPEZ, et al. Chest 2012, 141:7S-47S Amrita ROGER et al. [facility] 2017, 70: 252-289 Performed By: #### 3 4528-0 ####[facility] [id number] [place] [address] [place] PT Coag (PPP) [Time] 11.5 s Normal 9.7-13.0 [facility] Comment on above: Order Comment: Speci men Type: BLOOD SPECIMENOrdering Facility: [facility] Address: [address] [place] [address] Performed By: #### 3 4528-0 ####[facility] [id number] [place] [address] [place] Renal function 2000 panelon 12-10-2024 Albumin [Mass/Vol] 3.9 g/dL Normal 3.9-4.9 [facility] Comment on above: Order Comment: Speci men Type: BLOOD SPECIMENOrdering Facility: [facility] Address: [address] [place] [address] Performed By: #### 2 4362-6 ####[facility] [id number] [place] [address] [place] Anion gap [Moles/Vol] 12 mmol/L Normal 8-15 [facility] Comment on above: Order Comment: Speci men Type: BLOOD SPECIMENOrdering Facility: [facility] Address: [address] [place] [address] Performed By: #### 2 4362-6 ####[facility] [id number] [place] [address] [place] Calcium [Mass/Vol] 10.2 mg/dL Normal 8.5-10.2 [facility] Comment on above: Order Comment: Speci men Type: BLOOD SPECIMENOrdering Facility: [facility] Address: [address] [place] [address] Performed By: #### 2 4362-6 ####[facility] [id number] [place] [address] [place] Chloride [Moles/Vol] 105 mmol/L Normal 98-107 [facility] Comment on above: Order Comment: Speci men Type: BLOOD SPECIMENOrdering Facility: [facility] Address: [address] [place] [address] Performed By: #### 2 4362-6 ####[facility] [id number] [place] [address] [place] CO2 [Moles/Vol] 23 mmol/L Normal 22-30 [facility] Comment on above: Order Comment: Speci men Type: BLOOD SPECIMENOrdering Facility: [facility] Address: [address] [place] [address] Performed By: #### 2 4362-6 ####[facility] [id number] [address] [place] [facility] Creatinine [Mass/Vol] 0.78 mg/dL Normal 0.58-0.96 [facility] Comment on above: Order Comment: Speci men Type: BLOOD SPECIMENOrdering Facility: [facility] Address: [address] [place] [address] Performed By: #### 2 4362-6 ####[facility] [id number] [place] [address] [place] eGFRcr SerPlBld CKD-EPI 2020 90 mL/min/1.73m??? Normal >=60 [facility] Comment on above: Order Comment: Speci men Type: BLOOD SPECIMENOrdering Facility: [facility] Address: [address] [place] [address] Result Comment: Patti mated Glomerular Filtration Rate [...] actual GFR. Performed By: #### 2 4362-6 ####[facility] [id number] [place] [address] [place] Glucose [Mass/Vol] 97 mg/dL Normal 74-99 [facility] Comment on above: Order Comment: Speci men Type: BLOOD SPECIMENOrdering Facility: [facility] Address: [address] [place] [address] Result Comment: The [place] Diabetes [employer] (ADA) provides guidance for cutoff [...] Standards of Medical Care in Diabetes 2016, [place]. Diabetes Care. 2016.39(Suppl 1). Performed By: #### 2 4362-6 ####[facility] [id number] [place] [address] [place] Phosphate [Mass/Vol] 2.7 mg/dL Normal 2.7-4.8 [facility] Comment on above: Order Comment: Speci men Type: BLOOD SPECIMENOrdering Facility: [facility] Address: [address] [place] [address] Performed By: #### 2 4362-6 ####[facility] [id number] [place] [address] [place] Potassium [Moles/Vol] 3.8 mmol/L Normal 3.7-5.1 [facility] Comment on above: Order Comment: Speci men Type: BLOOD SPECIMENOrdering Facility: [facility] Address: [address] [place] [address] Performed By: #### 2 4362-6 ####[facility] [id number] [place] [address] [place] Sodium [Moles/Vol] 140 mmol/L Normal 136-144 [facility] Comment on above: Order Comment: Speci men Type: BLOOD SPECIMENOrdering Facility: [facility] Address: [address] [place] [address] Performed By: #### 2 4362-6 ####[facility] [id number] [place] [address] [place] Urea nitrogen [Mass/Vol] 14 mg/dL Normal 7-21 [facility] Comment on above: Order Comment: Speci men Type: BLOOD SPECIMENOrdering Facility: [facility] Address: [address] [place] [address] Performed By: #### 2 4362-6 ####[facility] [id number] [address], [place] [address] [place] Urinalysis complete panel (U )on 12-10-2024 Bacteria LM.HPF (Urine sed) [#/Area] Negative Normal Negative [facility] Comment on above: Order Comment: Speci men Type: URINE SPECIMENOrdering Facility: [facility] Address: [address] [place] [address] Performed By: #### 2 4356-8 ####[facility] [id number] [address], [place] [address] [place] Bilirubin Ql (U) Negative Normal Negative [facility] Comment on above: Order Comment: Speci men Type: URINE SPECIMENOrdering Facility: [facility] Address: [address] [place] [address] Performed By: #### 2 4356-8 ####[facility] [id number] [place] [address] [place] Clarity (Unsp spec) Cloudy Abnormal Clear [facility] Comment on above: Order Comment: Speci men Type: URINE SPECIMENOrdering Facility: [facility] Address: [address] [place] [address] Performed By: #### 2 4356-8 ####[facility] [id number] [address], [place] [address] [place] Color (U) Dark Yellow Abnormal Yellow [facility] Comment on above: Order Comment: Speci men Type: URINE SPECIMENOrdering Facility: [facility] Address: [address] [place] [address] Performed By: #### 2 4356-8 ####[facility] [id number] [address], [place] [address] [place] Epithelial cells LM.HPF (Urine sed) [#/Area] Moderate Normal [facility] Comment on above: Order Comment: Speci men Type: URINE SPECIMENOrdering Facility: [facility] Address: [address] [place] [address] Performed By: #### 2 4356-8 ####[facility] [id number] [place] [address] [place] Glucose Test strip (U) [Mass/Vol] Negative Normal Negative [facility] Comment on above: Order Comment: Speci men Type: URINE SPECIMENOrdering Facility: [facility] Address: [address] [place] [address] Performed By: #### 2 4356-8 ####[facility] [id number] [place] [address] [place] Hemoglobin Ql (U) Negative Normal Negative [facility] Comment on above: Order Comment: Speci men Type: URINE SPECIMENOrdering Facility: [facility] Address: [address] [place] [address] Performed By: #### 2 4356-8 ####[facility] [id number] [address], [facility] [place] Hyaline casts (Urine sed) [#/Area] /[LPF] Abnormal 0 /LPF [facility] Comment on above: Order Comment: Speci men Type: URINE SPECIMENOrdering Facility: [facility] Address: [address] [place] [address] Performed By: #### 2 4356-8 ####[facility] [id number] [address] [place] [address] [place] Ketones Ql (U) Trace Abnormal Negative [facility] Comment on above: Order Comment: Speci men Type: URINE SPECIMENOrdering Facility: [facility] Address: [address] [place] [address] Performed By: #### 2 4356-8 ####[facility] [id number] [place] [address] [place] Leukocyte esterase Test strip Ql (U) Negative Normal Negative [facility] Comment on above: Order Comment: Speci men Type: URINE SPECIMENOrdering Facility: [facility] Address: [address] [place] [address] Performed By: #### 2 4356-8 ####[facility] [id number] [address], [place] [address] [place] Nitrite Ql (U) Negative Normal Negative [facility] Comment on above: Order Comment: Speci men Type: URINE SPECIMENOrdering Facility: [facility] Address: [address] [place] [address] Performed By: #### 2 4356-8 ####[facility] [id number] [place] [address] [place] pH (U) 5.5 [pH] Normal 5.0-8.0 [facility] Comment on above: Order Comment: Speci men Type: URINE SPECIMENOrdering Facility: [facility] Address: [address] [place] [address] Performed By: #### 2 4356-8 ####[facility] [id number] [address], [facility]95 [place] Protein (U) [Mass/Vol] 1+ Abnormal Negative [facility] Comment on above: Order Comment: Speci men Type: URINE SPECIMENOrdering Facility: [facility] Address: [address] [place] [address] Performed By: #### 2 4356-8 ####[facility] [id number] [place] [address] [place] RBC LM.HPF (Urine sed) [#/Area] 3-5 /HPF Abnormal 0-2 /HPF [facility] Comment on above: Order Comment: Speci men Type: URINE SPECIMENOrdering Facility: [facility] Address: [address] [place] [address] Performed By: #### 2 4356-8 ####[facility] [id number] [place] [address] [place] Specific gravity (U) [Rel density] 1.040 High 1.005-1.03 0 [facility] Comment on above: Order Comment: Speci men Type: URINE SPECIMENOrdering Facility: [facility] Address: [address] [place] [address] Performed By: #### 2 4356-8 ####[facility] [id number] [place] [address] [place] Urobilinogen Ql (U) 1.0 EU/dL Normal 0.2-1.0 EU/dL [facility] Comment on above: Order Comment: Speci men Type: URINE SPECIMENOrdering Facility: [facility] Address: [address] [place] [address] Performed By: #### 2 4356-8 ####[facility] [id number] [place] [address] [place] WBC LM.HPF (Urine sed) [#/Area] 0-5 /HPF Normal 0-5 /HPF [facility] Comment on above: Order Comment: Speci men Type: URINE SPECIMENOrdering Facility: [facility] Address: [address] [place] [address] Performed By: #### 2 4356-8 ####[facility] [id number] [place] [address] [place] Yeast.budding LM.HPF (Urine sed) [#/Area] Present Abnormal None Seen [facility] Comment on above: Order Comment: Speci men Type: URINE SPECIMENOrdering Facility: [facility] Address: [address] [place] [address] Performed By: #### 2 4356-8 ####[facility] [id number] [place] [address] [place] Amylase SerPl-cCncon 025 Amylase [Catalytic activity/Vol] 94 U/L Normal 30-104 [facility] Comment on above: Order Comment: Speci men Type: BLOOD SPECIMENOrdering Facility: [facility] Address: [address] [place] [address] Performed By: #### L IPNF, 1798-8, 3040-3, 68903-0 ####[facility] [id number] [place] [address] [place] CBC W Auto Differential pane l (Bld)on 12-09-2024 Basophils (Bld) [#/Vol] 0.09 10*3/uL Normal <0.11 [facility] Comment on above: Order Comment: Speci men Type: BLOOD SPECIMENOrdering Facility: [facility] Address: [address] [place] [address] Performed By: #### 5 7021-8 ####[facility] [id number] [place] [address] [place] Basophils/100 WBC (Bld) 0.7 % Normal [facility] Comment on above: Order Comment: Speci men Type: BLOOD SPECIMENOrdering Facility: [facility] Address: [address] [place] [address] Performed By: #### 5 7021-8 ####[facility] [id number] [facility] [address], [place] [address] [place] Differential cell count method Nom (Bld) Auto Normal [facility] Comment on above: Order Comment: Speci men Type: BLOOD SPECIMENOrdering Facility: [facility] Address: [address] [place] [address] Performed By: #### 5 7021-8 ####[facility] [id number] [place] [address] [place] Eosinophils (Bld) [#/Vol] 0.05 10*3/uL Normal <0.46 [facility] Comment on above: Order Comment: Speci men Type: BLOOD SPECIMENOrdering Facility: [facility] Address: [address] [place] [address] Performed By: #### 5 7021-8 ####[facility] [id number] [place] [address] [place] Eosinophils/100 WBC (Bld) 0.4 % Normal [facility] Comment on above: Order Comment: Speci men Type: BLOOD SPECIMENOrdering Facility: [facility] Address: [address] [place] [address] Performed By: #### 5 7021-8 ####[facility] [id number] [place] [address] [place] Erythrocyte distribution width (RBC) [Ratio] 12.5 % Normal 11.5-15.0 [facility] Comment on above: Order Comment: Speci men Type: BLOOD SPECIMENOrdering Facility: [facility] Address: [address] [place] [address] Performed By: #### 5 7021-8 ####[facility] [id number] [place] [address] [place] Hematocrit (Bld) [Volume fraction] 43.8 % Normal 36.0-46.0 [facility] Comment on above: Order Comment: Speci men Type: BLOOD SPECIMENOrdering Facility: [facility] Address: [address] [place] [address] Performed By: #### 5 7021-8 ####[facility] [id number] [place] [address] [place] Hemoglobin (Bld) [Mass/Vol] 15.2 g/dL Normal 11.5-15.5 [facility] Comment on above: Order Comment: Speci men Type: BLOOD SPECIMENOrdering Facility: [facility] Address: [address] [place] [address] Performed By: #### 5 7021-8 ####[facility] [id number] [place] [address] [place] Immature granulocytes (Bld) [#/Vol] 0.03 10*3/uL Normal <0.10 [facility] Comment on above: Order Comment: Speci men Type: BLOOD SPECIMENOrdering Facility: [facility] Address: [address] [place] [address] Performed By: #### 5 7021-8 ####[facility] [id number] [place] [address] [place] Immature granulocytes/100 WBC (Bld) 0.2 % Normal [facility] Comment on above: Order Comment: Speci men Type: BLOOD SPECIMENOrdering Facility: [facility] Address: [address] [place] [address] Performed By: #### 5 7021-8 ####[facility] [id number] [place] [address] [place] Lymphocytes (Bld) [#/Vol] 2.53 10*3/uL Normal 1.00-4.00 [facility] Comment on above: Order Comment: Speci men Type: BLOOD SPECIMENOrdering Facility: [facility] Address: [address] [place], [place] [address] Performed By: #### 5 7021-8 ####[facility] [id number] [place] [address] [place] Lymphocytes/100 WBC (Bld) 20.3 % Normal [facility] Comment on above: Order Comment: Speci men Type: BLOOD SPECIMENOrdering Facility: [facility] Address: [address] [place] [address] Performed By: #### 5 7021-8 ####[facility] [id number] [place] [address] [place] MCH (RBC) [Entitic mass] 33.4 pg Normal 26.0-34.0 [facility] Comment on above: Order Comment: Speci men Type: BLOOD SPECIMENOrdering Facility: [facility] Address: [address] [place] [address] Performed By: #### 5 7021-8 ####[facility] [id number] [place] [address] [place] MCHC (RBC) [Mass/Vol] 34.7 g/dL Normal 30.5-36.0 [facility] Comment on above: Order Comment: Speci men Type: BLOOD SPECIMENOrdering Facility: [facility] Address: [address] [place] [address] Performed By: #### 5 7021-8 ####[facility] [id number] [place] [address] [place] MCV (RBC) [Entitic vol] 96.3 fL Normal 80.0-100.0 [facility] Comment on above: Order Comment: Speci men Type: BLOOD SPECIMENOrdering Facility: [facility] Address: [address] [place] [address] Performed By: #### 5 7021-8 ####[facility] [id number] [address] [id number] [address] [place] Monocytes (Bld) [#/Vol] 1.18 10*3/uL High <0.87 [facility] Comment on above: Order Comment: Speci men Type: BLOOD SPECIMENOrdering Facility: [facility] Address: [address] [place] [address] Performed By: #### 5 7021-8 ####[facility] [id number] [facility] [id number], [facility]95 [place] Monocytes/100 WBC (Bld) 9.4 % Normal [facility] Comment on above: Order Comment: Speci men Type: BLOOD SPECIMENOrdering Facility: [facility] Address: [address] [place] [address] Performed By: #### 5 7021-8 ####[facility] [id number] [facility] [place] [address] [place] Neutrophils (Bld) [#/Vol] 8.61 10*3/uL High 1.45-7.50 [facility] Comment on above: Order Comment: Speci men Type: BLOOD SPECIMENOrdering Facility: [facility] Address: [address] [place] [address] Performed By: #### 5 7021-8 ####[facility] [id number] [place] [address] [place] Neutrophils/100 WBC (Bld) 69.0 % Normal [facility] Comment on above: Order Comment: Speci men Type: BLOOD SPECIMENOrdering Facility: [facility] Address: [address] [place] [address] Performed By: #### 5 7021-8 ####[facility] [id number] [place] [address] [place] Nucleated RBC (Bld) [#/Vol] 10*3/uL Normal <0.01 [facility] Comment on above: Order Comment: Speci men Type: BLOOD SPECIMENOrdering Facility: [facility] Address: [address] [place] [address] Performed By: #### 5 7021-8 ####[facility] [id number] [place] [address] [place] Nucleated RBC/100 WBC (Bld) [Ratio] 0.0 /100 WBC Normal [facility] Comment on above: Order Comment: Speci men Type: BLOOD SPECIMENOrdering Facility: [facility] Address: [address] [place] [address] Performed By: #### 5 7021-8 ####[facility] [id number] [place] [address] [place] Platelet mean volume (Bld) [Entitic vol] 9.4 fL Normal 9.0-12.7 [facility] Comment on above: Order Comment: Speci men Type: BLOOD SPECIMENOrdering Facility: [facility] Address: [address] [place] [address] Performed By: #### 5 7021-8 ####[facility] [id number] [place] [address] [place] Platelets (Bld) [#/Vol] 443 10*3/uL High 150-400 [facility] Comment on above: Order Comment: Speci men Type: BLOOD SPECIMENOrdering Facility: [facility] Address: [address] [place] [address] Performed By: #### 5 7021-8 ####[facility] [id number] [place] [address] [place] RBC (Bld) [#/Vol] 4.55 10*6/uL Normal 3.90-5.20 [facility] Comment on above: Order Comment: Speci men Type: BLOOD SPECIMENOrdering Facility: [facility] Address: [address] [place] [address] Performed By: #### 5 7021-8 ####[facility] [id number] [place] [address] [place] WBC (Bld) [#/Vol] 12.49 10*3/uL High 3.70-11.00 [facility] Comment on above: Order Comment: Speci men Type: BLOOD SPECIMENOrdering Facility: [facility] Address: [address] [place] [address] Performed By: #### 5 7021-8 ####[facility] [id number] [place] [address] [place] Comprehensive metabolic 2000 panelon 12-09-2024 Albumin [Mass/Vol] 4.8 g/dL Normal 3.9-4.9 [facility] Comment on above: Order Comment: Speci men Type: BLOOD SPECIMENOrdering Facility: [facility] Address: [address] [place] [address] Performed By: #### L IPNF, 8, 3039-3, 56551-6 ####[facility] [id number] [place] [address] [place] ALP [Catalytic activity/Vol] 169 U/L High 34-123 [facility] Comment on above: Order Comment: Speci men Type: BLOOD SPECIMENOrdering Facility: [facility] Address: [address] [place] [address] Performed By: #### L IPNF, 1797-10, 3039-3, 50271-3 ####[facility] [id number] [place] [address] [place] ALT [Catalytic activity/Vol] 20 U/L Normal 7-38 [facility] Comment on above: Order Comment: Speci men Type: BLOOD SPECIMENOrdering Facility: [facility] Address: [address] [place] [address] Performed By: #### L IPNF, 1797-10, 3039-3, 84494-8 ####[facility] [id number] [place] [address] [place] Anion gap [Moles/Vol] 16 mmol/L High 8-15 [facility] Comment on above: Order Comment: Speci men Type: BLOOD SPECIMENOrdering Facility: [facility] Address: [address] [place] [address] Performed By: #### L IPNF, 8, 3039-3, 97377-6 ####[facility] [id number] [place] [address] [place] AST [Catalytic activity/Vol] 22 U/L Normal 13-35 [facility] Comment on above: Order Comment: Speci men Type: BLOOD SPECIMENOrdering Facility: [facility] Address: [address] [place] [address] Performed By: #### L IPNF, 1797-10, 3039-3, 65306-9 ####[facility] [id number] [place] [address] [place] Bilirubin [Mass/Vol] 0.2 mg/dL Normal 0.2-1.3 [facility] Comment on above: Order Comment: Speci men Type: BLOOD SPECIMENOrdering Facility: [facility] Address: [address] [place] [address] Performed By: #### L IPNF, 1797-10, 3039-3, 64241-2 ####[facility] [id number] [place] [address] [place] Calcium [Mass/Vol] 11.3 mg/dL High 8.5-10.2 [facility] Comment on above: Order Comment: Speci men Type: BLOOD SPECIMENOrdering Facility: [facility] Address: [address] [place] [address] Performed By: #### L IPNF, 1797-10, 3039-3, 78870-3 ####[facility] [id number] [place] [address] [place] Chloride [Moles/Vol] 102 mmol/L Normal 98-107 [facility] Comment on above: Order Comment: Speci men Type: BLOOD SPECIMENOrdering Facility: [facility] Address: [address] [place] [address] Performed By: #### L IPNF, 1798-8, 3040-3, 95628-1 ####[facility] [id number] [place] [address] [place] CO2 [Moles/Vol] 23 mmol/L Normal 22-30 [facility] Comment on above: Order Comment: Speci men Type: BLOOD SPECIMENOrdering Facility: [facility] Address: [address] [place] [address] Performed By: #### L IPNF, 1798-8, 3040-3, 85643-0 ####[facility] [id number] [place] [address] [place] Creatinine [Mass/Vol] 1.00 mg/dL High 0.58-0.96 [facility] Comment on above: Order Comment: Speci men Type: BLOOD SPECIMENOrdering Facility: [facility] Address: [address] [place] [address] Performed By: #### L IPNF, 8-8, 3040-3, 62795-9 ####[facility] [id number] [place] [address] [place] eGFRcr SerPlBld CKD-EPI 2020 67 mL/min/1.73m??? Normal >=60 [facility] Comment on above: Order Comment: Speci men Type: BLOOD SPECIMENOrdering Facility: [facility] Address: [address] [place] [address] Result Comment: Patti mated Glomerular Filtration Rate [...] Performed By: #### L IPELIZABETH, 1797-10, 3039-05, ####[facility] [id number] [address] [address] [place] Glucose [Mass/Vol] 112 mg/dL High 74-99 [facility] Comment on above: Order Comment: Leticia her Type: BLOOD SPECIMENOrdering Facility: [facility] Address: [address] [place] [id number] Result Comment: The [place] (ADA) provides guidance for cutoff [...] Standards of Medical Care in Diabetes 2016, [place]. Diabetes Care. 2016.39(Suppl 1). Performed By: #### L IPELIZABETH, 1797-10, 3039-05, ####[facility] [id number] [address] [address] [place] Potassium [Moles/Vol] 4.4 mmol/L Normal 3.7-5.1 [facility] Comment on above: Order Comment: Leticia her Type: BLOOD SPECIMENOrdering Facility: [facility] Address: [address] [place] [address] Performed By: #### L IPNF, 1797-10, 3039-05, ####[facility] [id number] [address] [address] [place] Protein [Mass/Vol] 8.3 g/dL High 6.3-8.0 [facility] Comment on above: Order Comment: Speci men Type: BLOOD SPECIMENOrdering Facility: [facility] Address: [address] [place], [place] [address] Performed By: #### L IPNF, 1798-8, 3040-3, 86566-1 ####[facility] [id number] [address] [address] [place] Sodium [Moles/Vol] 141 mmol/L Normal 136-144 [facility] Comment on above: Order Comment: Speci men Type: BLOOD SPECIMENOrdering Facility: [facility] Address: [address] [place] [address] Performed By: #### L IPNF, 8-8, 3040-3, 59689-3 ####[facility] [id number] [place] [address] [place] Urea nitrogen [Mass/Vol] 14 mg/dL Normal 7-21 [facility] Comment on above: Order Comment: Speci men Type: BLOOD SPECIMENOrdering Facility: [facility] Address: [address] [place] [address] Performed By: #### L IPNF, 8, 3040-3, 58618-7 ####[facility] [id number] [place] [address] [place] ED NOTEon 12-09-2024 ED NOTE HNO ID: [id number] Author: MAGNO JIMENEZ RN Service: ? Author Type: Registered Nurse Type: ED Notes Filed: 12/09/2024 19:13 Note Text: Received bedside report from Jefry AMAYA, assumed care at this time Normal [facility] ED NOTE HNO ID: [id number] Author: JEFRY THOMPSON RN Service: Emergency Medicine Author Type: Registered Nurse Type: ED Notes Filed: 12/09/2024 18:21 Note Text: Pt requesting something for nausea, MD notified. Pt unable to provide urine sample at this time, pt aware of need Normal [facility] ED PROGRESS NOTE (PROVIDER)o n 12-09-2024 ED PROGRESS NOTE (PROVIDER) HNO ID: [id number] Author: DIOMEDES PAZ MD Service: Emergency Medicine [...] 2024 TIME: 9:36 PM PAGER/CONTACT #: Karen [facility] ED PROV NOTEon 12-09-2024 ED PROV NOTE HNO ID: [id number] Author: DIOMEDES PAZ MD Service: Emergency Medicine [...] She is followed by gastroenterology here at [facility]. Was seen in emergency department yesterday with [...] epigastric pain. Follows with GI here at [facility]. Last saw Lindsey Willard 11/02/2024. Recommended restart creon and elavil. Also ordered endoscopic US guided celiac plexus block. Underwent block 11/17 with no relief. Recent admission at [facility] for flare up of her pancreatitis. Dc [...] she is not eating. She was at [facility] yesterday for this current episode. [...] Negative. Psychiatr (more content not included)... Normal [facility] ED Triage Noteon 12-09-2024 ED Triage Note HNO ID: [id number] Author: MILLER GALLAGHER MD Service: Emergency Medicine [...] urinary or vaginal symptoms. Recently admitted at [facility] for the same, dc 2 weeks ago. [...] (1) Reflex SIGNATURE: Miller Gallagher MD Normal [facility] LIPID PANEL, NONFASTINGon Cholesterol [Mass/Vol] 272 mg/dL High <200 [facility] Comment on above: Order Comment: Speci men Type: BLOOD SPECIMENOrdering Facility: [facility] Address: [address] [place] [address] Result Comment: <200 mg/dL, Desirable 200-239 mg/dL, Borderline high >239 mg/dL, High Performed By: #### L MALINI, 8, 3039-3, 00929-3 ####[facility] [id number] [place] [address] [place] HDL CHOLESTEROL, NF 42 mg/dL Normal >39 [facility] Comment on above: Order Comment: Speci arden Type: BLOOD SPECIMENOrdering Facility: [facility] Address: [address] [place] [address] Result Comment: 40-5 9 mg/dL, Acceptable >59 mg/dL, High: Negative risk factor for coronary heart disease <40 mg/dL, Low: Positive risk factor for coronary heart disease Performed By: #### L IPELIZABETH, 1797-10, 3039-3, 28956-6 ####[facility] [id number] [place] [address] [place] LDL CHOLESTEROL CALCULATED, NF 193 mg/dL High <100 [facility] Comment on above: Order Comment: Jessicai men Type: BLOOD SPECIMENOrdering Facility: [facility] Address: [address] [place] [address] Result Comment: <100 mg/dL, Optimal 100-129 mg/dL, Near optimal/above optimal 130-159 mg/dL, Borderline high 160-189 mg/dL, High >189 mg/dL, Very high Secondary prevention optimal LDL Cholesterol levels are recommended to be <70 mg/dL LDL cholesterol is calculated using the Lyon-NIH equation. Performed By: #### L MALINI, 1797-10, 3, ####[facility] [id number] [address] [address] [place] LDL/HDL RATIO, NF 4.60 mg/dL High <2.54 [facility] Comment on above: Order Comment: Speci men Type: BLOOD SPECIMENOrdering Facility: [facility] Address: [address] [place] [address] Result Comment: Refe rence: 1. National Cholesterol Education Program ATP III Guideline At-A-Glance Quick Desk Reference: National Heart, Lung, and Blood [place]. National Institutes of Health. 2001: NIH Publication No. 01-3305. 2. An International Atherosclerosis Society position paper: global recommendations for the management of dyslipidemia: executive summary, Atherosclerosis. 2014: 232(2):410-413. Performed By: #### L MALINI, 1797-10, 3039-05, ####[facility] [id number] [address] [place] NON HDL CHOL, NF 230 mg/dL High <130 [facility] Comment on above: Order Comment: Leticia arden Type: BLOOD SPECIMENOrdering Facility: [facility] Address: [address] [place] [address] Result Comment: <130 mg/dL, Optimal 130-159 mg/dL, Near optimal/above optimal 160-189 mg/dL, Borderline high 190-219 mg/dL, High >219 mg/dL, Very high Secondary prevention optimal non HDL Cholesterol levels are recommended to be <100 mg/dL Performed By: #### L MALINI, 1797-10, 3039-05, ####[facility] [id number] [address] [address] [place] T CHOL/HDL RATIO NF 6.48 mg/dL High <5.10 [facility] Comment on above: Order Comment: Speci men Type: BLOOD SPECIMENOrdering Facility: [facility] Address: [address] [place] [address] Performed By: #### L IPNF, 1797-10, 3039-3, 24964-9 ####[facility] [id number] [address] [address] [place] TRIGLYCERIDES, NF 193 mg/dL High <150 [facility] Comment on above: Order Comment: Speci men Type: BLOOD SPECIMENOrdering Facility: [facility] Address: [address] [place] [address] Result Comment: <150 mg/dL, Normal 150-199 mg/dL, Borderline high 200-499 mg/dL, High >499 mg/dL, Very high Performed By: #### L IPNF, 1797-10, 3, 39905-3 ####[facility] [id number] [place] [address] [place] VLDL CHOLESTEROL, NF 40 mg/dL High <30 [facility] Comment on above: Order Comment: Speci men Type: BLOOD SPECIMENOrdering Facility: [facility] Address: [address] [place] [address] Performed By: #### L IPNF, 1797-10, 3, 97439-5 ####[facility] [id number] [place] [address] [place] Lipase SerPl-cCncon 12-10-19 25 Lipase [Catalytic activity/Vol] 39 U/L Normal 16-61 [facility] Comment on above: Order Comment: Speci men Type: BLOOD SPECIMENOrdering Facility: [facility] Address: [address] [place] [address] Performed By: #### L IPNF, 1797-10, 3, 40809-5 ####[facility] [id number] [place] [address] [place] PHOSPHATIDYLETHANOL (PETH)on 12-09-2024 EER PETH See Note Normal [facility] Comment on above: Order Comment: Speci men Type: BLOOD SPECIMENOrdering Facility: [facility] Address: [address] [place] [address] Result Comment: Auth orized individuals can access the [employer] Enhanced Report with an [employer] Connect account using the following link. Your local lab can assist you in obtaining the patient report if you don't have a Connect account. [email or web address] Performed By: #### P ETH ####[facility] SolicitorsCLIA [id number] [place] [address] PETH 16:0/18.2 (PLPETH) <10 Normal [facility] Comment on above: Order Comment: Speci men Type: BLOOD SPECIMENOrdering Facility: [facility] Address: [address] [place] [address] Result Comment: Refe rence ranges are not well established. Performed By: #### P ETH ####[facility] LABORATORIESCLIA [id number] [place] [address] PETH 16:0/18:1 (POPETH) <10 Normal [facility] Comment on above: Order Comment: Speci men Type: BLOOD SPECIMENOrdering Facility: [facility] Address: [address] [place] [address] Result Comment: PEth 16:0/18:1 (POPEth) Less than 10 ng/mL............Not detected Less than 20 ng/mL............Abstinence or light alcohol consumption 20 - 200 ng/mL................Moderate alcohol consumption Greater than 200 ng/mL........Heavy alcohol consumption or chronic alcohol use (Reference: Brie Singh and Kimberly Kellogg 2018 J. Forensic Sci) Performed By: #### P ETH ####[facility] LABORATORIESCLIA [id number] [place] [address] PETH INTERPRETATION See Comment Normal [facility] Comment on above: Order Comment: Speci men Type: BLOOD SPECIMENOrdering Facility: [facility] Address: [address] [place] [address] Result Comment: Phos phatidylethanol (PEth) is a [...] developed and its performance characteristics determined by [facility]. It has not been cleared or approved by the U.S. Food and Drug Administration. This test was performed in a CLIA-certified laboratory and is intended for clinical purposes. Performed By: [facility] [address] [place] [address] Flower Maker: Kevyn Parmar MD, PhD CLIA Number: [id number] Performed By: #### P ETH ####[facility] LABORATORIESIA [id number] [place] [address] SEPSIS LACTATE W/ REFLEX (IN ITIAL)on 12-09-2024 Lactate [Moles/Vol] 1.1 mmol/L Normal <=2.0 [facility] Comment on above: Order Comment: Speci men Type: BLOOD SPECIMENOrdering Facility: [facility] Address: [address] [place] [address] Performed By: #### S LACTR ####[facility] [id number] [address] [address] [place] CBC WITH AUTO DIFFERENTIALon 12-08-2024 BASOPHILS ABSOLUTE COUNT (10*3/UL) BY AUTOMATED COUNT 0.1 10*3/uL Normal 0.0-0.2 [facility] Comment on above: Performed By: #### 8 9579-7, 06041-4, 5643-2, 52055-3, LIVR, 3040-3, CBCA, BMP #### [facility] ([id number]) [address] [place] [address] BASOPHILS RELATIVE PERCENT BY AUTOMATED COUNT 1.0 % Normal [facility] Comment on above: Performed By: #### 8 9579-7, 89579-4, 5643-2, 47826-2, LIVR, 3040-3, CBCA, BMP #### [facility] ([id number]) [address] [place] [address] CELLAVISION DIFFERENTIAL TYPE AUTOMATED DIFFERENTIAL Normal [facility] Comment on above: Performed By: #### 8 9579-7, 58126-3, 5643-2, 23217-7, LIVR, 3040-3, CBCA, BMP #### [facility] ([id number]) [address] [place] [address] Eosinophils (Bld) [#/Vol] 0.1 10*3/uL Normal 0.0-0.4 [facility] Comment on above: Performed By: #### 8 9579-7, 79538-6, 5643-2, 66480-6, LIVR, 3040-3, CBCA, BMP #### [facility] ([id number]) [address] [place] [address] EOSINOPHILS RELATIVE PERCENT BY AUTOMATED COUNT 0.6 % Normal [facility] Comment on above: Performed By: #### 8 9579-7, 87468-8, 5643-2, 64105-5, LIVR, 3040-3, CBCA, BMP #### [facility] ([id number]) [address] [place] [address] Erythrocyte distribution width (RBC) [Ratio] 13.1 % Normal 11.5-15 [facility] Comment on above: Performed By: #### 8 9579-7, 60040-9, 5643-2, 47437-7, LIVR, 3040-3, CBCA, BMP #### [facility] ([id number]) [address] [place] [address] Hematocrit (Bld) [Volume fraction] 44.9 % Normal 35-47 [facility] Comment on above: Performed By: #### 8 9579-7, 46703-7, 5643-2, 27124-5, LIVR, 3040-3, CBCA, BMP #### [facility] ([id number]) [address] [place] [address] Hemoglobin (Bld) [Mass/Vol] 15.4 g/dL Normal 11.7-15.5 [facility] Comment on above: Performed By: #### 8 9579-7, 19974-3, 5643-2, 76672-5, LIVR, 3040-3, CBCA, BMP #### [facility] ([id number]) [address] [place] [address] LYMPHOCYTES ABSOLUTE COUNT (10*3/UL) BY AUTOMATED COUNT 3.2 10*3/uL Normal 1.0-3.5 [facility] Comment on above: Performed By: #### 8 9579-7, 68331-8, 5643-2, 82202-0, LIVR, 3040-3, CBCA, BMP #### [facility] ([id number]) [address] [place] [address] LYMPHOCYTES RELATIVE PERCENT BY AUTOMATED COUNT 27.5 % Normal [facility] Comment on above: Performed By: #### 8 9579-7, 07753-1, 5643-2, 69844-9, LIVR, 3040-3, CBCA, BMP #### [facility] ([id number]) [address] [place] [address] MCH (RBC) [Entitic mass] 32.4 pg Normal 27-34 [facility] Comment on above: Performed By: #### 8 9579-7, 85804-5, 5643-2, 65963-9, LIVR, 3040-3, CBCA, BMP #### [facility] ([id number]) [address] [place] [address] MCHC (RBC) [Mass/Vol] 34.3 g/dL Normal 32-36 [facility] Comment on above: Performed By: #### 8 9579-7, 10498-1, 5643-2, 77071-2, LIVR, 3040-3, CBCA, BMP #### [facility] ([id number]) [address] [place] [address] MCV (RBC) [Entitic vol] 95 fL Normal 80-100 [facility] Comment on above: Performed By: #### 8 9579-7, 65802-0, 5643-2, 13578-8, LIVR, 3040-3, CBCA, BMP #### [facility] ([id number]) [address] [place] [address] MONOCYTES ABSOLUTE COUNT (10*3/UL) BY AUTOMATED COUNT 0.9 10*3/uL Normal 0.0-0.9 [facility] Comment on above: Performed By: #### 8 9579-7, 35216-2, 5643-2, 84341-4, LIVR, 3040-3, CBCA, BMP #### [facility] ([id number]) [address] [place] [address] MONOCYTES RELATIVE PERCENT BY AUTOMATED COUNT 8.1 % Normal [facility] Comment on above: Performed By: #### 8 9579-7, 52858-5, 5643-2, 07011-5, LIVR, 3040-3, CBCA, BMP #### [facility] ([id number]) [address] [place] [address] NEUTROPHILS ABSOLUTE COUNT BY AUTOMATED COUNT 7.3 10*3/uL High 1.5-6.6 [facility] Comment on above: Performed By: #### 8 9579-7, 20022-0, 5643-2, 11191-7, LIVR, 3040-3, CBCA, BMP #### [facility] ([id number]) [address] [place] [address] NEUTROPHILS RELATIVE PERCENT BY AUTOMATED COUNT 62.8 % Normal [facility] Comment on above: Performed By: #### 8 9579-7, 32557-2, 5643-2, 31532-9, LIVR, 3040-3, CBCA, BMP #### [facility] ([id number]) [address] [place] [address] Platelet mean volume (Bld) [Entitic vol] 7.8 fL Normal 7-12 [facility] Comment on above: Performed By: #### 8 9579-7, 39566-0, 5643-2, 68789-9, LIVR, 3040-3, CBCA, BMP #### [facility] ([id number]) [address] [place] [address] Platelets (Bld) [#/Vol] 404 10*3/uL Normal 150-450 [facility] Comment on above: Performed By: #### 8 9579-7, 71397-5, 5643-2, 26005-3, LIVR, 3040-3, CBCA, BMP #### [facility] ([id number]) [address] [place] [address] RBC COUNT 4.75 X10E12/L Normal 3.8-5.2 [facility] Comment on above: Performed By: #### 8 9579-7, 12211-5, 5643-2, 16331-5, LIVR, 3040-3, CBCA, BMP #### [facility] ([id number]) [address] [place] [address] WBC (Bld) [#/Vol] 11.6 10*3/uL High 4-11 [facility] Comment on above: Performed By: #### 8 9579-7, 60189-1, 5643-2, 30573-3, LIVR, 3040-3, CBCA, BMP #### [facility] ([id number]) [address] [place] [address] COMPREHENSIVE METABOLIC PANE [facility] 12-08-2024 Albumin [Mass/Vol] 4.5 g/dL Normal 3.2-5.3 [facility] Comment on above: Performed By: #### 8 9579-7, 65127-0, 5643-2, 39265-3, LIVR, 3040-3, CBCA, BMP #### [facility] ([id number]) [address] [place] [address] ALP [Catalytic activity/Vol] 156 U/L High 39-130 [facility] Comment on above: Performed By: #### 8 9579-7, 37941-5, 5643-2, 63289-8, LIVR, 3040-3, CBCA, BMP #### [facility] ([id number]) [address] [place] [address]45 ALT [Catalytic activity/Vol] 21 U/L Normal <=31 [facility] Comment on above: Performed By: #### 8 9579-7, 57794-6, 5643-2, 02381-8, LIVR, 3040-3, CBCA, BMP #### [facility] ([id number]) [address] [place] [address]70 Anion gap [Moles/Vol] 13 mmol/L Normal 5-15 [facility] Comment on above: Performed By: #### 8 9579-7, 38775-6, 5643-2, 21487-5, LIVR, 3040-3, CBCA, BMP #### [facility] ([id number]) [address] [place] [address] 96567 AST [Catalytic activity/Vol] 23 U/L Normal <=41 [facility] Comment on above: Performed By: #### 8 9579-7, 07175-4, 5643-2, 11669-8, LIVR, 3040-3, CBCA, BMP #### [facility] ([id number]) [address] [place] [address]6576 Bilirubin [Mass/Vol] 0.4 mg/dL Normal 0.3-1.2 [facility] Comment on above: Performed By: #### 8 9579-7, 21972-5, 5643-2, 31111-5, LIVR, 3040-3, CBCA, BMP #### [facility] ([id number]) [address] [place] [address]32 Calcium [Mass/Vol] 10.3 mg/dL Normal 8.5-10.5 [facility] Comment on above: Performed By: #### 8 9579-7, 05542-0, 5643-2, 84094-4, LIVR, 3040-3, CBCA, BMP #### [facility] ([id number]) [address] [place] [address] 56082 Chloride [Moles/Vol] 104 mmol/L Normal 98-109 [facility] Comment on above: Performed By: #### 8 9579-7, 05109-6, 5643-2, 83740-0, LIVR, 3040-3, CBCA, BMP #### [facility] ([id number]) [address] [place] [address] CO2 [Moles/Vol] 21 mmol/L Low 22-32 [facility] Comment on above: Performed By: #### 8 9579-7, 21012-0, 5643-2, 17422-8, LIVR, 3040-3, CBCA, BMP #### [facility] ([id number]) [address] [place] [address] 29298 Creatinine [Mass/Vol] 0.79 mg/dL Normal 0.40-1.00 [facility] Comment on above: Result Comment: METH OD TRACEABLE TO IDMS STANDARD Performed By: #### 8 9579-7, 95023-0, 5643-2, 15888-6, LIVR, 3040-3, CBCA, BMP #### [facility] ([id number]) [address] [place] [address] 19668 GFR/1.73 sq M.predicted among non-blacks MDRD (S/P/Bld) [Vol rate/Area] 88 mL/min/{1.73_m2} Normal >=60 [facility] Comment on above: Result Comment: eGFR not reported due to non-numeric value for Creatinine. Reported eGFR is based on the CKD-EPI 2020 equation that does not use a race coefficient. Performed By: #### 8 9579-7, 14724-2, 5643-2, 07580-6, LIVR, 3040-3, CBCA, BMP #### [facility] ([id number]) [address] [place] [address] 29977 Glucose [Mass/Vol] 114 mg/dL High 65-99 [facility] Comment on above: Performed By: #### 8 9579-7, 75858-0, 5643-2, 92912-0, LIVR, 3040-3, CBCA, BMP #### [facility] ([id number]) [address] [place] [address] 58602 Potassium [Moles/Vol] 3.8 mmol/L Normal 3.5-5.0 [facility] Comment on above: Performed By: #### 8 9579-7, 30746-6, 5643-2, 31238-9, LIVR, 3040-3, CBCA, BMP #### [facility] ([id number]) [address] [place] [address] 75419 Protein [Mass/Vol] 8.5 g/dL High 6.0-8.0 [facility] Comment on above: Performed By: #### 8 9579-7, 97511-5, 5643-2, 46640-9, LIVR, 3040-3, CBCA, BMP #### [facility] ([id number]) [address] [place] [address] 42741 Sodium [Moles/Vol] 138 mmol/L Normal 134-146 [facility] Comment on above: Performed By: #### 8 9579-7, 77831-4, 5643-2, 30683-8, LIVR, 3040-3, CBCA, BMP #### [facility] ([id number]) [address] [place] [address] 85469 Urea nitrogen [Mass/Vol] 11 mg/dL Normal 5-23 [facility] Comment on above: Performed By: #### 8 9579-7, 49545-5, 5643-2, 29410-8, LIVR, 3040-3, CBCA, BMP #### [facility] ([id number]) [address] [place] [address] ABDOMEN AND PELVIS W CONT on [...] Arce MD on 12/08/2024 10:27 PM Normal [facility] LACTATE W/ REFLEXon 12-09-19 25 LACTATE W/REFLEX 1.4 mmol/L Normal 0.4-2.0 [facility] Comment on above: Order Comment: Resul t did not trigger repeat Lactate,re-order if needed. Performed By: #### 8 9579-7, 55008-6, 5643-2, 27965-8, LIVR, 3040-3, CBCA, BMP #### [facility] ([id number]) [address] [place] [address] 15246 LIPASEon 12-08-2024 Lipase [Catalytic activity/Vol] 66 U/L High 17-40 [facility] Comment on above: Performed By: #### 8 9579-7, 43935-1, 5643-2, 23869-0, LIVR, 3040-3, CBCA, BMP #### [facility] ([id number]) [address] [place] [address] 85204 MAGNESIUMon 12-08-2024 Magnesium [Mass/Vol] 2.2 mg/dL Normal 1.8-2.6 [facility] Comment on above: Performed By: #### 8 9579-7, 22704-2, 5643-2, 52073-9, LIVR, 3040-3, CBCA, BMP #### [facility] ([id number]) [address] [place] [address] 69636 Discharge Note-Nursingon Discharge Note-Nursing Discharge Note-Nu rsing I accessed this chart because [facility] ER called, this pt is currently at their ER and the provider was requesting the records of the pt's stay here. A pt signature authorizing the share of this info was collected via FAX. Normal [facility] Discharge Note-Nursingon Discharge Note-Nursing Discharge Note-Nu rsing CHIOMA ARCINIEGA :1970 Visit Date:11/24/2024 Inpatient Discharge Instructions Your Care Team Admitting Physician - Geno Martin MD Reason for Your Visit Nausea, vomitting, abdominal pain Your Diagnosis Acute on chronic pancreatitis Leukocytosis History of alcohol use Smoker Abdominal pain Abdominal problem Nausea This Is Your Medications List acetaminophen-hydrocodone (Bern 325 mg-5 mg oral tablet) amitriptyline (amitriptyline [...] When Why Instructions Next Dose New acetaminophen-hydrocodone (Bern 325 mg-5 mg oral tablet) 1 Tablets By Mouth Every 6 hours as needed for for pain Acute on chronic pancreatitis Duration: 5 Days Pickup at [facility] Take as needed every 6 hours for pain New pantoprazole (Pantoprazole [address] Tab) 1 Tablets By Mouth Every day Duration: 30 Days Pickup at [facility] 11/30 @9am Unchanged amitriptyline (amitriptyline [...] a day 2pm and 9pm Pharmacy Information [facility]: [address] [place] [id number] [phone] Test Results CBC BMP WBC: 8.2 E9/L [...] you eat. (more content not included)... [facility] Inpatient Clinical Summaryon 11-29-2024 Inpatient Clinical Summary Inpatient Clinical Summary [place] [id number] Clinical Summary Person Information: Name: CHIOMA ARCINIEGA Age: 54 Years : 1970 Sex: Female PCP: NONE, XXXX Marital Status: Race: White Ethnicity: Non- or Language: Albanian Visit Id: Visit Reason: Abdominal problem; Nausea; Abdominal pain; SEVERE ABD PAIN, N/V Speciality: Acuity: Enc Type: Inpatient Med Service: Medical Arrival: 11/24/2024 20:08:05 Discharge: Dispo Type: Admitted as IP to this Hosp Address: [address] [place] [id number] Provider Notes: Diagnosis: 1:Acute on chronic pancreatitis; [...] Documented This Visit Final Med List: acetaminophen-hydrocodone (Bern 325 mg-5 mg oral tablet) 1 Tablets [...] NONE , [place] Patient Education Information: Normal [facility] Inpatient Patient Summaryon 11-29-2024 Inpatient Patient Summary Inpatient Patient Summary [place] [id number] Patient Discharge Instructions PERSON INFORMATION Name: CHIOMA [...] OCCURRED DURING YOUR HOSPITAL STAY New Medications [facility], [address] [place], [place] [id number], [phone] acetaminophen-hydrocodone (Bern 325 mg-5 mg oral tablet) 1 Tablets [...] THIS WITH YOU AT ALL TIMES. acetaminophen-hydrocodone (Bern 325 mg-5 mg oral tablet) 1 Tablets [...] Leaflets: You may receive a survey from [facility] asking you to rate your care experience. Your feedback is important and will help us understand what we do well and how we can improve the quality of care we provide to you, your loved ones and our community. It???s an honor to serve you. Thank you for choosing [facility] Normal [facility] BMPon 11-28-2024 Anion gap [Moles/Vol] 8 mmol/L Normal 6-16 [facility] Comment on above: Performed By: #### 2 [id number] #### [facility] [address] [place] [address] BUN/Creat Ratio 7 No Units Low 10-20 [facility] Comment on above: Performed By: #### 2 [id number] #### [facility] [address] [place] [address] Calcium [Mass/Vol] 8.5 mg/dL Low 8.9-11.[address] [facility] Comment on above: Performed By: #### 2 [id number] #### [facility] [address] [place] [address] Chloride [Moles/Vol] 110 mmol/L Normal 101-111 [facility] Comment on above: Performed By: #### 2 [id number] #### [facility] [address] [place] [address] CO2 [Moles/Vol] 24 mmol/L Normal 21-31 [facility] Comment on above: Performed By: #### 2 161446 #### [facility] [address] [place] [address] Creatinine [Mass/Vol] 0.7 mg/dL Normal 0.5-1.3 [facility] Comment on above: Performed By: #### 2 [id number] #### [facility] [address] [place] [address] Glucose [Mass/Vol] 99 mg/dL Normal 55-[address] [facility] Comment on above: Performed By: #### 2 259148 #### [facility] [address] [place] [address] Potassium [Moles/Vol] 3.9 mmol/L Normal 3.5-5.3 [facility] Comment on above: Performed By: #### 2 057435 #### [facility] [address] [place] [address] Sodium [Moles/Vol] 138 mmol/L Normal 135-[address] [facility] Comment on above: Performed By: #### 2 830449 #### [facility] [address] [place] [address] Urea nitrogen [Mass/Vol] 5 mg/dL Normal 5-[address] [facility] Comment on above: Performed By: #### 2 980828 #### [facility] [address] [place] [address] Extra Salbador 11-28-2024 WB Tube Collected Yes Invalid Interpretation Code [facility] Comment on above: Performed By: #### 1 [id number] #### [facility] [address] [place] [address] Interdisciplinary Note - Dwayne e Manageron 11-28-2024 Interdisciplinary Note - Water Registrar Interdisciplinary Note - Water Registrar CM followed up with patient at bedside. Patient is form home with and family. Patient continues to deny any additional discharge needs and will transport home at discharge. CM rounded with attending Dr Guido and possible DC tomorrow pending progress. CM will continue to follow. Normal [facility] Comment on above: Result Comment: Elec tronically Signed By: Lara Wilson\Date and Time Signed: 11/28/24 12:19 EDT Lipase Levelon 11-28-2024 Lipase Lvl 102 unit/L High 13-[address] [facility] Comment on above: Performed By: #### 2 [id number] #### [facility] [address] [place] [address] eGFRon 11-28-2024 eGFR 102 mL/min/1.73 m2 Normal >=[address] [facility] Comment on above: Performed By: #### 1 [id number] #### [facility] [address] [place] [address] BMPon 11-27-2024 Anion gap [Moles/Vol] 7 mmol/L Normal 6-16 [facility] Comment on above: Performed By: #### 2 858723 #### [facility] [address] [place] [address] BUN/Creat Ratio 9 No Units Low 10-20 [facility] Comment on above: Performed By: #### 2 [id number] #### [facility] [address] [place] [address] Calcium [Mass/Vol] 8.6 mg/dL Low 8.9-11.[address] [facility] Comment on above: Performed By: #### 2 039993 #### [facility] [address] [place] [address] Chloride [Moles/Vol] 109 mmol/L Normal 101-111 [facility] Comment on above: Performed By: #### 2 152665 #### [facility] [address] [place] [address] CO2 [Moles/Vol] 28 mmol/L Normal 21-31 [facility] Comment on above: Performed By: #### 2 039563 #### [facility] [address] [place] [address] Creatinine [Mass/Vol] 0.7 mg/dL Normal 0.5-1.3 [facility] Comment on above: Performed By: #### 2 959049 #### [facility] [address] [place] [address] Glucose [Mass/Vol] 86 mg/dL Normal 55-[address] [facility] Comment on above: Performed By: #### 2 135034 #### [facility] [address] [place] [address] Potassium [Moles/Vol] 4.2 mmol/L Normal 3.5-5.3 [facility] Comment on above: Performed By: #### 2 492129 #### [facility] [address] [place] [address] Sodium [Moles/Vol] 140 mmol/L Normal 135-[address] [facility] Comment on above: Performed By: #### 2 141517 #### [facility] [address] [place] [address] Urea nitrogen [Mass/Vol] 6 mg/dL Normal 5-[address] [facility] Comment on above: Performed By: #### 2 772883 #### [facility] [address] [place] [address] CBC w/Indiceson 11-27-2024 Erythrocyte distribution width (RBC) [Ratio] 12.9 % Normal 10.9-14.[address] [facility] Comment on above: Performed By: #### 2 714933 #### [facility] [address] [place] [address] Hematocrit (Bld) [Volume fraction] 33.9 % Low 34.0-46.[address] [facility] Comment on above: Performed By: #### 2 335776 #### [facility] [address] [place] [address] Hemoglobin (Bld) [Mass/Vol] 11.5 g/dL Low 12.0-16.[address] [facility] Comment on above: Performed By: #### 2 917565 #### [facility] [address] [place] [address] MCH (RBC) [Entitic mass] 32.8 pg Normal 27.0-34.[address] [facility] Comment on above: Performed By: #### 2 495454 #### [facility] [address] [place] [address] MCHC (RBC) [Mass/Vol] 34.0 g/dL Normal 31.4-36.0 [facility] Comment on above: Performed By: #### 2 840261 #### [facility] [address] [place] [address] MCV (RBC) [Entitic vol] 96.5 fL Normal 80.0-100.[address] [facility] Comment on above: Performed By: #### 2 169150 #### [facility] [address] [place] [address] Platelet 225.0 E9/L Normal 150.0-500. [address] [facility] Comment on above: Performed By: #### 2 561374 #### [facility] [address] [place] [address] Platelet mean volume (Bld) [Entitic vol] 8.0 fL Normal 6.4-10.[address] [facility] Comment on above: Performed By: #### 2 943738 #### [facility] [address] [place] [address] RBC 3.5 E12/L Low 4.3-5.[address] [facility] Comment on above: Performed By: #### 2 721206 #### [facility] [address] [place] [address] RBC morphology finding Nom (Bld) NORMAL Invalid Interpretation Code [facility] Comment on above: Performed By: #### 2 [id number] #### [facility] [address] [place] [address] WBC 8.2 E9/L Normal 4.0-11.[address] [facility] Comment on above: Performed By: #### 2 006779 #### [facility] [address] [place] [address] Lipase Levelon 11-27-2024 Lipase Lvl 159 unit/L High 13-[address] [facility] Comment on above: Performed By: #### 2 634940 #### [facility] [address] [place] [address] eGFRon 11-27-2024 eGFR 102 mL/min/1.73 m2 Normal >=[address] [facility] Comment on above: Performed By: #### 1 [id number] #### [facility] [address] [place] [address] CBC w/ Auto Diffon 5 Basophil Absolute 0.0 E9/L Normal 0.0-0.[address] [facility] Comment on above: Performed By: #### 2 527359 #### [facility] [address] [place] [address] Basophils/100 WBC (Bld) 0.6 % Normal 0.0-2.[address] [facility] Comment on above: Performed By: #### 2 821119 #### [facility] [address] [place] [address] Eos Absolute 0.1 E9/L Normal 0.0-0.[address] [facility] Comment on above: Performed By: #### 2 237710 #### [facility] [address] [place] [address] Eosinophils/100 WBC (Bld) 1.7 % Normal 0.0-8.[address] [facility] Comment on above: Performed By: #### 2 419377 #### [facility] [address] [place] [address] Erythrocyte distribution width (RBC) [Ratio] 12.9 % Normal 10.9-14.[address] [facility] Comment on above: Performed By: #### 2 803631 #### [facility] [address] [place] [address] Hematocrit (Bld) [Volume fraction] 33.6 % Low 34.0-46.[address] [facility] Comment on above: Performed By: #### 2 405877 #### [facility] [address] [place] [address] Hemoglobin (Bld) [Mass/Vol] 11.6 g/dL Low 12.0-16.[address] [facility] Comment on above: Performed By: #### 2 768872 #### [facility] [address] [place] [address] Lymph Absolute 3.0 E9/L Normal 1.0-4.[address] [facility] Comment on above: Performed By: #### 2 562939 #### [facility] [address] [place] [address] Lymphocytes/100 WBC (Bld) 39.1 % Normal 14.0-50.[address] [facility] Comment on above: Performed By: #### 2 894246 #### [facility] [address] [place] [address] MCH (RBC) [Entitic mass] 33.8 pg Normal 27.0-34.[address] [facility] Comment on above: Performed By: #### 2 620195 #### [facility] [address] [place] [address] MCHC (RBC) [Mass/Vol] 34.6 g/dL Normal 31.4-36.0 [facility] Comment on above: Performed By: #### 2 069540 #### [facility] [address] [place] [address] MCV (RBC) [Entitic vol] 97.8 fL Normal 80.0-100.[address] [facility] Comment on above: Performed By: #### 2 300508 #### [facility] [address] [place] [address] Dukes Absolute 0.7 E9/L Normal 0.2-1.0 [facility] Comment on above: Performed By: #### 2 243327 #### [facility] [address] [place] [address] Monocytes/100 WBC (Bld) 9.7 % Normal 4.0-14.[address] [facility] Comment on above: Performed By: #### 2 286316 #### [facility] [address] [place] [address] Neutro Absolute 3.8 E9/L Normal 2.0-7.5 [facility] Comment on above: Performed By: #### 2 799780 #### [facility] [address] [place] [address] Neutro Auto 48.9 % Normal 36.0-75.[address] [facility] Comment on above: Performed By: #### 2 393864 #### [facility] [address] [place] [address] Platelet 255.0 E9/L Normal 150.0-500. [address] [facility] Comment on above: Performed By: #### 2 734843 #### [facility] [address] [place] [address] Platelet mean volume (Bld) [Entitic vol] 7.8 fL Normal 6.4-10.[address] [facility] Comment on above: Performed By: #### 2 555540 #### [facility] [address] [place] [address] RBC 3.4 E12/L Low 4.3-5.[address] [facility] Comment on above: Performed By: #### 2 418421 #### [facility] [address] [place] [address] WBC 7.7 E9/L Normal 4.0-11.[address] [facility] Comment on above: Performed By: #### 2 868044 #### [facility] [address] [place] [address] CMPon 11-26-2024 Albumin [Mass/Vol] 3.5 g/dL Normal 3.3-5.[address] [facility] Comment on above: Performed By: #### 2 586004 #### [facility] [address] [place] [address] Albumin/Globulin [Mass ratio] 1.8 {ratio} Normal 1.1-2.[address] [facility] Comment on above: Performed By: #### 2 177058 #### [facility] [address] [place] [address] Alk Phos 121 Int._Unit/L High 21-98 [facility] Comment on above: Performed By: #### 2 151454 #### [facility] [address] [place] [address] ALT 18 Int._Unit/L Normal 6-[address] [facility] Comment on above: Performed By: #### 2 326460 #### [facility] [address] [place] [address] Anion gap [Moles/Vol] 7 mmol/L Normal 6-16 [facility] Comment on above: Performed By: #### 2 119407 #### [facility] [address] [place] [address] AST 29 Int._Unit/L Normal 5-[address] [facility] Comment on above: Performed By: #### 2 792837 #### [facility] [address] [place] [address] Bili Total 0.3 mg/dL Normal 0.0-1.[address] [facility] Comment on above: Performed By: #### 2 502995 #### [facility] [address] [place] [address] BUN/Creat Ratio 10 No Units Normal 10-20 [facility] Comment on above: Performed By: #### 2 021269 #### [facility] [address] [place] [address] Calcium [Mass/Vol] 8.7 mg/dL Low 8.9-11.[address] [facility] Comment on above: Performed By: #### 2 419022 #### [facility] [address] [place] [address] Chloride [Moles/Vol] 107 mmol/L Normal 101-111 [facility] Comment on above: Performed By: #### 2 541685 #### [facility] [address] [place] [address] CO2 [Moles/Vol] 28 mmol/L Normal 21-31 [facility] Comment on above: Performed By: #### 2 302126 #### [facility] [address] [place] [address] Creatinine [Mass/Vol] 0.8 mg/dL Normal 0.5-1.3 [facility] Comment on above: Performed By: #### 2 372006 #### [facility] [address] [place] [address] Globulin (S) [Mass/Vol] 1.9 g/dL Normal 1.4-4.[address] [facility] Comment on above: Performed By: #### 2 956290 #### [facility] [address] [place] [address] Glucose [Mass/Vol] 84 mg/dL Normal 55-[address] [facility] Comment on above: Performed By: #### 2 828819 #### [facility] [address] [place] [address] Potassium [Moles/Vol] 4.0 mmol/L Normal 3.5-5.3 [facility] Comment on above: Performed By: #### 2 203129 #### [facility] [address] [place] [address] Protein [Mass/Vol] 5.4 g/dL Low 6.0-7.[address] [facility] Comment on above: Performed By: #### 2 648621 #### [facility] [address] [place] [address] Sodium [Moles/Vol] 138 mmol/L Normal 135-[address] [facility] Comment on above: Performed By: #### 2 150653 #### [facility] [address] [place] [address] Urea nitrogen [Mass/Vol] 8 mg/dL Normal 5-[address] [facility] Comment on above: Performed By: #### 2 723691 #### [facility] [address] [place] [address] Lipase Levelon 11-26-2024 Lipase Lvl 240 unit/L High 13-[address] [facility] Comment on above: Performed By: #### 2 409437 #### [facility] [address] [place] [address] eGFRon 11-26-2024 eGFR 87 mL/min/1.73 m2 Normal >=[address] [facility] Comment on above: Performed By: #### 1 [id number] #### [facility] [address] [place] [address] ED Clinical Summaryon 2024 ED Clinical Summary ED Clinical Summary [address] [address] ED Clinical Summary Person Information Name: CHIOMA ARCINIEGA Kayy/[facility] Age: 54 Years : 1970 Sex: Female Language: Albanian PCP: NONE, XXXX Marital Status: Visit Id: Visit Reason: Abdominal problem; Nausea; Abdominal pain; SEVERE ABD PAIN, N/V Speciality: Acuity: 3 Enc Type: Inpatient Med Service: Medical Arrival: 11/24/2024 20:08:05 Discharge: LOS: 000 05:25 Checkin: 11/24/2024 20:08:05 Checkout: 11/25/2024 01:33:45 Dispo Type: Admitted as IP to this [facility] EVENTS: Event Name Event Status Request [...] 11/25/2024 01:08:38 Lab Request 11/25/2024 01:08:38 ADDRESS: [facility] [id number] PHYS DOC NOTES: MEDICAL INFORMATION: Prescriptions Given: Medications to Continue with No Changes Other Medications promethazine (promethazine 25 mg Tab) 1 Tablets By Mouth 3 times a day. Refills: 0. PATIENT EDUCATION INFORMATION: Instructions: Follow up: DIAGNOSIS: Acute on chronic pancreatitis; Other chronic pancreatitis Normal [facility] ED Note-Physicianon 11-26-19 ED Note-Physician ED Note-Physician [...] most recently a GI physician at the [facility] who performs interventional pain management treatments for [...] more ciga (more content not included)... Normal [facility] Comment on above: Result Comment: Elec tronically Signed By: Loki Ernandez DO\.higinio\Date and Time Signed: 11/25/24 01:13 EDT ED Patient Education Noteon 11-25-2024 ED Patient Education Note ED Patient Education Note Normal [facility] ED Patient Summaryon 025 ED Patient Summary ED Patient Summary [place] [id number] Patient Discharge Instructions Person Information Name: CHIOMA ARCINIEGA Age: 54 Years Arrival Date: 11/24/2024 20:08:05 Discharge Diagnosis: Acute on chronic pancreatitis; Other chronic pancreatitis Primary Care Physician: NONE, XXXX Provider Information Primary Provider: Loki Ernandez DO Advanced Director Of Housing:Liane The exam and treatment you received in the Emergency Department were for an urgent problem and are not intended as complete care. It is important that you follow up with a doctor, nurse practitioner, or physician???s medical assistant prn for ongoing care. If your symptoms become [...] opioids can be used to help relieve gcaiwvtz-iu-pytwac pain and are often prescribed following a [...] be struggling with addiction, tell your health career services assistant and ask for guidance or call [facility]???S National Helpline at 1-918-279-HELP. v Source: [place] Department of Health and Human Services/C (more content not included)... Normal [facility] Interdisciplinary Note - Dwayne e Manageron 11-25-2024 Interdisciplinary Note - Water Registrar Interdisciplinary Note - Water Registrar CM met with patient at bedside. Patient states she is from home with and her daughter/ her boyfriend/ their baby twins and another small child are all living with her. Patient is independent with all self care drives and does not use DME in the home. Patient denies any discharge needs at this time and will transport home. [facility] follows with [facility] [place] for her PCP needs and Dr Hathaway is attending. Plan remains home no needs when medically stable. Patient admitted IN for pancreatitis. CM to follow. Normal [facility] Comment on above: Result Comment: Elec tronically Signed By: Lara Wilson I\.br\Date and Time Signed: 11/25/24 09:21 EDT BMPon 11-24-2024 Anion gap [Moles/Vol] 13 mmol/L Normal 6-16 [facility] Comment on above: Performed By: #### 2 038171 #### [facility] [address] [place] [address] BUN/Creat Ratio 13 No Units Normal 10-20 [facility] Comment on above: Performed By: #### 2 [id number] #### [facility] [address] [place] [address] Calcium [Mass/Vol] 10.7 mg/dL Normal 8.9-11.[address] [facility] Comment on above: Performed By: #### 2 114819 #### [facility] [address] [place] [address] Chloride [Moles/Vol] 100 mmol/L Low 101-111 [facility] Comment on above: Performed By: #### 2 655604 #### [facility] [address] [place] [address] CO2 [Moles/Vol] 30 mmol/L Normal 21-31 [facility] Comment on above: Performed By: #### 2 087567 #### [facility] [address] [place] [address] Creatinine [Mass/Vol] 0.9 mg/dL Normal 0.5-1.3 [facility] Comment on above: Performed By: #### 2 308160 #### [facility] [address] [place] [address] Glucose [Mass/Vol] 109 mg/dL Normal 55-[address] [facility] Comment on above: Performed By: #### 2 236615 #### [facility] [address] [place] [address] Potassium [Moles/Vol] 3.8 mmol/L Normal 3.5-5.3 [facility] Comment on above: Performed By: #### 2 311085 #### [facility] [address] [place] [address] Sodium [Moles/Vol] 139 mmol/L Normal 135-[address] [facility] Comment on above: Performed By: #### 2 049766 #### [facility] [address] [place] [address] Urea nitrogen [Mass/Vol] 12 mg/dL Normal 5-[address] [facility] Comment on above: Performed By: #### 2 295031 #### [facility] [address] [place] [address] CBC w/ Auto Diffon 5 Basophil Absolute 0.1 E9/L Normal 0.0-0.[address] [facility] Comment on above: Performed By: #### 2 331684 #### [facility] [address] [place] [address] Basophils/100 WBC (Bld) 0.6 % Normal 0.0-2.[address] [facility] Comment on above: Performed By: #### 2 727489 #### [facility] [address] [place] [address] Eos Absolute 0.1 E9/L Normal 0.0-0.[address] [facility] Comment on above: Performed By: #### 2 288359 #### [facility] [address] [place] [address] Eosinophils/100 WBC (Bld) 0.6 % Normal 0.0-8.[address] [facility] Comment on above: Performed By: #### 2 952141 #### [facility] [address] [place] [address] Erythrocyte distribution width (RBC) [Ratio] 13.0 % Normal 10.9-14.[address] [facility] Comment on above: Performed By: #### 2 989613 #### [facility] [address] [place] [address] Hematocrit (Bld) [Volume fraction] 45.4 % Normal 34.0-46.[address] [facility] Comment on above: Performed By: #### 2 953629 #### [facility] [address] [place] [address] Hemoglobin (Bld) [Mass/Vol] 15.3 g/dL Normal 12.0-16.[address] [facility] Comment on above: Performed By: #### 2 596760 #### [facility] [address] [place] [address] Lymph Absolute 2.6 E9/L Normal 1.0-4.[address] [facility] Comment on above: Performed By: #### 2 005253 #### [facility] [address] [place] [address] Lymphocytes/100 WBC (Bld) 18.2 % Normal 14.0-50.[address] [facility] Comment on above: Performed By: #### 2 539270 #### [facility] [address] [place] [address] MCH (RBC) [Entitic mass] 32.2 pg Normal 27.0-34.[address] [facility] Comment on above: Performed By: #### 2 454336 #### [facility] [address] [place] [address] MCHC (RBC) [Mass/Vol] 33.6 g/dL Normal 31.4-36.0 [facility] Comment on above: Performed By: #### 2 539213 #### [facility] [address] [place] [address] MCV (RBC) [Entitic vol] 95.9 fL Normal 80.0-100.[address] [facility] Comment on above: Performed By: #### 2 187770 #### [facility] [address] [place] [address] Dukes Absolute 1.5 E9/L High 0.2-1.0 [facility] Comment on above: Performed By: #### 2 659594 #### [facility] [address] [place] [address] Monocytes/100 WBC (Bld) 10.5 % Normal 4.0-14.[address] [facility] Comment on above: Performed By: #### 2 838074 #### [facility] [address] [place] [address] Neutro Absolute 10.0 E9/L High 2.0-7.5 [facility] Comment on above: Performed By: #### 2 714239 #### [facility] [address] [place] [address] Neutro Auto 70.1 % Normal 36.0-75.[address] [facility] Comment on above: Performed By: #### 2 [id number] #### [facility] [address] [place] [address] Platelet 373.0 E9/L Normal 150.0-500. [address] [facility] Comment on above: Performed By: #### 2 [id number] #### [facility] [address] [place] [address] Platelet mean volume (Bld) [Entitic vol] 7.8 fL Normal 6.4-10.[address] [facility] Comment on above: Performed By: #### 2 [id number] #### [facility] [address] [place] [address] RBC 4.7 E12/L Normal 4.3-5.[address] [facility] Comment on above: Performed By: #### 2 [id number] #### [facility] [address] [place] [address] WBC 14.3 E9/L High 4.0-11.[address] [facility] Comment on above: Performed By: #### 2 [id number] #### [facility] [address] [place] [address] Extra Blueon 11-24-2024 Tube Collected Plasma Yes Invalid Interpretation Code [facility] Comment on above: Performed By: #### 1 [id number] #### [facility] [address] [place] [address] Hep Func Panelon 11-24-2024 Albumin [Mass/Vol] 4.9 g/dL Normal 3.3-5.[address] [facility] Comment on above: Performed By: #### 2 [id number] #### [facility] [address] [place] [address] Albumin/Globulin [Mass ratio] 1.6 {ratio} Normal 1.1-2.[address] [facility] Comment on above: Performed By: #### 2 [id number] #### [facility] [address] [place] [address] Alk Phos 169 Int._Unit/L High 21-98 [facility] Comment on above: Performed By: #### 2 [id number] #### [facility] [address] [place] [address] ALT 12 Int._Unit/L Normal 6-[address] [facility] Comment on above: Performed By: #### 2 [id number] #### [facility] [address] [place] [address] AST 19 Int._Unit/L Normal 5-[address] [facility] Comment on above: Performed By: #### 2 [id number] #### [facility] [address] [place] [address] Bili Direct 0.0 mg/dL Normal 0.0-0.[address] [facility] Comment on above: Performed By: #### 2 [id number] #### [facility] [address] [place] [address] Bili Indirect 0.4 mg/dL Normal 0.1-0.9 [facility] Comment on above: Performed By: #### 2 [id number] #### [facility] [address] [place] [address] Bili Total 0.4 mg/dL Normal 0.0-1.[address] [facility] Comment on above: Performed By: #### 2 [id number] #### [facility] [address] [place] [address] Globulin (S) [Mass/Vol] 3.0 g/dL Normal 1.4-4.[address] [facility] Comment on above: Performed By: #### 2 [id number] #### [facility] [address] [place] [address] Protein [Mass/Vol] 7.9 g/dL High 6.0-7.[address] [facility] Comment on above: Performed By: #### 2 [id number] #### [facility] [address] [place] [address] Lipase Levelon 11-24-2024 Lipase Lvl 303 unit/L High 13-[address] [facility] Comment on above: Performed By: #### 2 [id number] #### [facility] [address] [place] [address] eGFRon 11-24-2024 eGFR 75 mL/min/1.73 m2 Normal >=[address] [facility] Comment on above: Performed By: #### 1 [id number] #### [facility] [address] [place] [address] ANES POSTPROC EVALon 025 ANES POSTPROC EVAL HNO ID: [id number] Author: MARLI COSBY MD Service: ? Author [...] November 21, 2024 TIME: 8:23 AM CSN: [id number] Normal [facility] ANES PRE-OPon 11-17-2024 ANES PRE-OP HNO ID: [id number] Author: MARLI COSBY MD Service: ? Author Type: Physician Type: Anesthesia Preprocedure Evaluation Filed: 11/17/2024 14:39 Note Text: ANESTHESIOLOGY DAY OF SURGERY NOTE : 1970 Procedure Information Date/Time: 11/17/24 1530 Scheduled providers: Josse Romo MD; Sandhya Poon APRN.BAND RIPSAW OPERATOR; Marli Cosby MD Procedure: EGD - THERAPEUTIC, [...] Outpatient Medications as of 11/17/2024 Medication Sig veywdm-wsytbnuw-thzutgx (CREON) 24,000-76,000 -120,000 unit delayed release capsule Take 2 caps by mouth 3 times daily with meals and 1 cap with each snack. Take 1st cap before meal starts and the 2nd cap residential through. Max of 10 capsules per day. [...] November 17, 2024 TIME: 2:38 PM CSN: [id number] Normal [facility] EGD Study observation Narrat iveon 11-17-2024 [facility] Radiology Study observation (narrative) [facility] NURSING PROGon 11-17-2024 NURSING PROG HNO ID: [id number] Author: MAYRA SANTIAGO RN Service: ? Author [...] Electronically Signed By: Mayra Santiago RN Normal [facility] NURSING PROG HNO ID: [id number] Author: COLIN GUZMAN RN Service: ? Author [...] Colin Guzman RN In Department: GASTROENTEROLOGY Normal [facility] CBC auto differentialon 09-0 Basophils (Bld) [#/Vol] 0.04 10*3/uL [facility] Basophils/100 WBC (Bld) 1 % 0 - 2 % [facility] Eosinophils (Bld) [#/Vol] 0.17 10*3/uL [facility] Eosinophils/100 WBC (Bld) 3 % [...] (Bld) 0 % 0 [facility] Interpretation and review of laboratory results [...] 3.59 10*6/uL Low 3.95 - 5.11 m/uL [facility] Segmented neutrophils/100 WBC (Bld) 3.84 % [facility] WBC other (Bld) [#/Vol] 6.5 [facility] CBC with Diffon 11-09-2024 Abs. Basophil 0.04 k/uL Normal 0.00-0.[address] [facility] Comment on above: Performed By: #### B MP, LIVP, LIP #### [address] [place], [place] [id number] [employer] Lead: Ion Jasso MD Abs.Imm.Granulocyte <0.03 Normal 0.00-0.30 [facility] Comment on above: Performed By: #### B MP, LIVP, LIP #### [address] [place], [facility]83 [employer] Lead: Ion Jasso MD Abs.Neutrophil (Seg) 3.84 k/uL Normal 1.50-8.10 [facility] Comment on above: Performed By: #### B MP, LIVP, LIP #### [address] [place] [address] [employer] Lead: Ion Jasso MD Basophils/100 WBC (Bld) 1 % Normal 0-2 [facility] Comment on above: Performed By: #### B MP, LIVP, LIP #### [address] [place] [address] [employer] Lead: Ino Jasso MD Eosinophils (Bld) [#/Vol] 0.17 10*3/uL Normal 0.00-0.44 [facility] Comment on above: Performed By: #### B MP, LIVP, LIP #### [facility] [address] [place], [place] [address]58[address]83 [employer] Lead: Ion Jasso MD Eosinophils/100 WBC (Bld) 3 % Normal 1-4 [facility] Comment on above: Performed By: #### B MP, LIVP, LIP #### [address] [place], [place] [address] [employer] Lead: Ion Jasso MD Erythrocyte distribution width (RBC) [Ratio] 12.3 % Normal 11.8-14.4 [facility] Comment on above: Performed By: #### B MP, LIVP, LIP #### [address] [place] [address] [employer] Lead: Ion Jasso MD Hematocrit (Bld) [Volume fraction] 35.1 % Low 36.3-47.1 [facility] Comment on above: Performed By: #### B MP, LIVP, LIP #### [address] [place], [place] [address] [employer] Lead: Ion Jasso MD Hemoglobin (Bld) [Mass/Vol] 11.9 g/dL Normal 11.9-15.1 [facility] Comment on above: Performed By: #### B MP, LIVP, LIP #### [address] [place] [address] [employer] Lead: Ion Jasso MD Immature granulocytes/100 WBC (Bld) 0 % Normal 0 [facility] Comment on above: Performed By: #### B MP, LIVP, LIP #### [address] [place], [facility]83 [employer] Lead: Ion Jasso MD Lymphocytes (Bld) [#/Vol] 1.43 10*3/uL Normal 1.10-3.70 [facility] Comment on above: Performed By: #### B MP, LIVP, LIP #### [address] [place], [place] [id number] [employer] Lead: Ion Jasso MD Lymphocytes/100 WBC (Bld) 22 % Low 24-43 [facility] Comment on above: Performed By: #### B MP, LIVP, LIP #### [facility] [address] [place], [place] 1121783 [employer] Lead: Ion Jasso MD MCH (RBC) [Entitic mass] 33.1 pg Normal 25.2-33.5 [facility] Comment on above: Performed By: #### B MP, LIVP, LIP #### [facility] [address] [place] [address] Dr. [place], [facility]83 [employer] Lead: Ion Jasso MD MCHC (RBC) [Mass/Vol] 33.9 g/dL Normal 28.4-34.8 [facility] Comment on above: Performed By: #### B MP, LIVP, LIP #### [address] [place], [facility]83 [employer] Lead: Ion Jasso MD MCV (RBC) [Entitic vol] 97.8 fL Normal 82.6-102.9 [facility] Comment on above: Performed By: #### B MP, LIVP, LIP #### [address] [place], [place] 1139383 [employer] Lead: Ion Jasso MD Monocytes (Bld) [#/Vol] 0.99 10*3/uL Normal 0.10-1.20 [facility] Comment on above: Performed By: #### B MP, LIVP, LIP #### [facility] [address] [place] [address] Dr[address] [place], [place] 1158683 [employer] Lead: Ion Jasso MD Monocytes/100 WBC (Bld) 15 % High 3-12 [facility] Comment on above: Performed By: #### B MP, LIVP, LIP #### [facility] [address] [place], [place] 3159683 [employer] Lead: Ion Jasso MD Neutrophil (Seg) 59 % Normal 36-65 [facility] Comment on above: Performed By: #### B MP, LIVP, LIP #### [facility] [address] [place], [place] 6597083 [employer] Lead: Ion Jasso MD NRBC Automated 0.0 per 100 WBC Normal 0.0 [facility] Comment on above: Performed By: #### B MP, LIVP, LIP #### [facility] [address] [place], [place] 2328683 [employer] Lead: Ion Jasso MD Platelet mean volume (Bld) [Entitic vol] 9.8 fL Normal 8.1-13.5 [facility] Comment on above: Performed By: #### B MP, LIVP, LIP #### [facility] [address] [place], [place] 0165783 [employer] Lead: Ion Jasso MD Platelets (Bld) [#/Vol] 144 10*3/uL Normal 138-453 [facility] Comment on above: Performed By: #### B MP, LIVP, LIP #### [facility] [address] [place], [place] 5441083 [employer] Lead: Ion Jasso MD RBC (Bld) [#/Vol] 3.59 10*6/uL Low 3.95-5.11 [facility] Comment on above: Performed By: #### B MP, LIVP, LIP #### [facility] [address] [place] [address] [employer] Lead: Ion Jasso MD WBC (Bld) [#/Vol] 6.5 10*3/uL Normal 3.5-11.3 [facility] Comment on above: Performed By: #### B MP, LIVP, LIP #### [facility] [address] [place] [address] [employer] Lead: Ion Jasso MD Comp Metabolic Pr/rfx MGon 0 11-09-2024 Albumin [Mass/Vol] 3.5 g/dL Normal 3.5-5.2 [facility] Comment on above: Performed By: #### B MP, LIVP, LIP #### [facility] [address] [place] [address] [employer] Lead: Ion Jasso MD Albumin/Glob Ratio 1.7 Normal 1.0-2.5 [facility] Comment on above: Performed By: #### B MP, LIVP, LIP #### [facility] [address] [place], [place] 8648283 [employer] Lead: Ion Jasso MD Alkaline Phos 186 U/L High 35-[address] [facility] Comment on above: Performed By: #### B MP, LIVP, LIP #### [facility] [address] [place], [place] 8634783 [employer] Lead: Ion Jasso MD ALT [Catalytic activity/Vol] 79 U/L High 10-35 [facility] Comment on above: Performed By: #### B MP, LIVP, LIP #### [facility] [address] [place], [place] 5443383 [employer] Lead: Ion Jasso MD Anion gap [Moles/Vol] 12 mmol/L Normal 9-16 [facility] Comment on above: Performed By: #### B MP, LIVP, LIP #### [facility] [address] [place] [address] Dr. [place], [place] 1946183 [employer] Lead: Ion Jasso MD AST [Catalytic activity/Vol] 62 U/L High 10-35 [facility] Comment on above: Performed By: #### B MP, LIVP, LIP #### [facility] [address] [place] [address] [employer] Lead: Ion Jasso MD Bilirubin [Mass/Vol] 0.2 mg/dL Normal 0.00-1.20 [facility] Comment on above: Performed By: #### B MP, LIVP, LIP #### [facility] [address] [place], [place] 8393483 [employer] Lead: Ion Jasso MD BUN/CRE Ratio 5 Low 9-[address] [facility] Comment on above: Performed By: #### B MP, LIVP, LIP #### [facility] [address] [place], [place] 9758383 [employer] Lead: Ion Jasso MD Calcium [Mass/Vol] 8.9 mg/dL Normal 8.6-10.4 [facility] Comment on above: Performed By: #### B MP, LIVP, LIP #### [facility] [address] [place], [place] [phone] [employer] Lead: Ion Jasso MD Chloride [Moles/Vol] 107 mmol/L Normal 98-107 [facility] Comment on above: Performed By: #### B MP, LIVP, LIP #### [facility] [address] [place], [place] 3286283 [employer] Lead: Ion Jasso MD CO2 [Moles/Vol] 22 mmol/L Normal 20-31 [facility] Comment on above: Performed By: #### B MP, LIVP, LIP #### [facility] [address] [place], [place] 9498883 [employer] Lead: Ion Jasso MD Creatinine [Mass/Vol] 0.6 mg/dL Normal 0.50-0.90 [facility] Comment on above: Performed By: #### B MP, LIVP, LIP #### [facility] [address] [place], [place] [phone] [employer] Lead: Ion Jasso MD GFR/1.73 sq M.predicted among non-blacks MDRD (S/P/Bld) [Vol rate/Area] mL/min/{1.73_m2} Normal >60 [facility] Comment on above: Result Comment: These [...] By: #### B MP, LIVP, LIP #### [facility] [address] [place] [address] Dr. [place], [place] 0861783 [employer] Lead: Ion Jasso MD Glucose [Mass/Vol] 98 mg/dL Normal 74-99 [facility] Comment on above: Performed By: #### B MP, LIVP, LIP #### [address] [place], [place] [phone] [employer] Lead: Ion Jasso MD Potassium [Moles/Vol] 3.7 mmol/L Normal 3.7-5.3 [facility] Comment on above: Performed By: #### B MP, LIVP, LIP #### [address] [place], [place] 2123483 [employer] Lead: Ion Jasso MD Protein [Mass/Vol] 5.6 g/dL Low 6.6-8.7 [facility] Comment on above: Performed By: #### B MP, LIVP, LIP #### [address] [place], [place] 9869683 [employer] Lead: Ion Jasso MD Sodium [Moles/Vol] 141 mmol/L Normal 136-145 [facility] Comment on above: Performed By: #### B MP, LIVP, LIP #### [facility] [address] [place] [address] Dr. [place], [place] 1532383 [employer] Lead: Ion Jasso MD Urea nitrogen [Mass/Vol] 3 mg/dL Low 6-20 [facility] Comment on above: Performed By: #### B MP, LIVP, LIP #### [facility] [address] [place] [address] [place] [address] [employer] Lead: Ion Jsaso MD Comprehensive Metabolic Pane l w/ Reflex to MGon 11-09-2024 Albumin [Mass/Vol] 3.5 g/dL 3.5 - 5.2 g/dL [facility] Albumin/Globulin [Mass ratio] 1.7 {ratio} 1.0 - 2.5 [facility] ALP [Catalytic activity/Vol] 186 U/L High 35 - 104 U/L [facility] ALT [Catalytic activity/Vol] 79 U/L High 10 - 35 U/L [facility] Anion gap [Moles/Vol] 12 mmol/L 9 - 16 mmol/L [facility] AST [Catalytic activity/Vol] 62 U/L High 10 - 35 U/L [facility] Bilirubin [Mass/Vol] 0.2 mg/dL 0.00 - 1.20 mg/dL [facility] Calcium [Mass/Vol] 8.9 mg/dL 8.6 - 10. 4 mg/dL [facility] Chloride [Moles/Vol] 107 mmol/L 98 - 10 7 mmol/L [facility] CO2 [Moles/Vol] 22 mmol/L 20 - 31 mmol/L [facility] Creatinine [Mass/Vol] 0.6 mg/dL 0.50 - 0.90 mg/dL [facility] Kaylyn Prather Rate - PINF [facility] Comment on above: These results [...] [Mass/Vol] 98 mg/dL 74 - 99 mg/dL [facility] Interpretation and review of laboratory results Abnormal [facility] Potassium [Moles/Vol] 3.7 mmol/L 3.7 - 5.3 mmol/L [facility] Protein [Mass/Vol] 5.6 g/dL Low 6.6 - 8.7 g/dL [facility] Sodium [Moles/Vol] 141 mmol/L 136 - 145 mmol/L [facility] Urea nitrogen [Mass/Vol] 3 mg/dL Low 6 - 20 mg/dL [facility] Urea nitrogen/Creatinine [Mass ratio] 5 mg/mg Low 9 - 20 [facility] Lipaseon 11-09-2024 Lipase [Catalytic activity/Vol] 19 U/L 13 - 60 U/L [facility] Lipase [Catalytic activity/Vol] 19 U/L Normal 13-60 [facility] Comment on above: Performed By: #### B MP, LIVP, LIP #### [facility] [address] [place] [address] [employer] Lead: Ion Jasso MD No Panel Informationon 11-09 [facility] CBC auto differentialon Basophils (Bld) [#/Vol] 0.04 10*3/uL [facility] Basophils/100 WBC (Bld) 1 % 0 - 2 % [facility] Eosinophils (Bld) [#/Vol] 0.13 10*3/uL [facility] Eosinophils/100 WBC (Bld) 2 % 1 - 4 % [facility] Erythrocyte distribution width (RBC) [Ratio] 12.5 % 11.8 - 14.4 % [facility] Hematocrit (Bld) [Volume fraction] 35.6 % Low 36.3 - 47.1 % [facility] Hemoglobin (Bld) [Mass/Vol] 11.9 g/dL 11.9 - 15.1 g/dL [facility] Immature granulocytes (Bld) [#/Vol] [facility] Immature granulocytes/100 WBC (Bld) 0 % 0 [facility] Interpretation and review of laboratory results Abnormal [facility] Lymphocytes/100 WBC (Bld) 29 % 24 - 43 % [facility] Lymphocytes/100 WBC (Bld) 1.70 % [facility] MCH (RBC) [Entitic mass] 33.0 pg 25.2 - 33.5 pg [facility] MCHC (RBC) [Mass/Vol] 33.4 g/dL 28.4 - 34.8 g/dL [facility] MCV (RBC) [Entitic vol] 98.6 fL 82.6 - 102.9 fL [facility] Monocytes/100 WBC (Bld) 17 % High 3 - 12 % [facility] Monocytes/100 WBC (Bld) 1.00 % [facility] Neutrophils/100 WBC (Bld) 51 % 36 - 65 % [facility] Nucleated RBC/100 WBC (Bld) [Ratio] 0.0 % 0.0 per 100 WBC [facility] Platelet mean volume (Bld) [Entitic vol] 9.8 fL 8.1 - 13.5 fL [facility] Platelets (Bld) [#/Vol] 153 10*3/uL [facility] RBC (Bld) [#/Vol] 3.61 10*6/uL Low 3.95 - 5.11 m/uL [facility] Segmented neutrophils/100 WBC (Bld) 2.91 % [facility] WBC other (Bld) [#/Vol] 5.8 [facility] CBC with Diffon 11-08-2024 Abs. Basophil 0.04 k/uL Normal 0.00-0.[address] [facility] Comment on above: Performed By: #### B LIZY, LIVP, LIP #### [facility] [address] [place] [address] [employer] Lead: Ion Jasso MD Abs.Imm.Granulocyte <0.03 Normal 0.00-0.30 [facility] Comment on above: Performed By: #### B MP, LIVP, LIP #### [facility] [address] [place] [address] [employer] Lead: Ion Jasso MD Abs.Neutrophil (Seg) 2.91 k/uL Normal 1.50-8.10 [facility] Comment on above: Performed By: #### B MP, LIVP, LIP #### [facility] [address] [place], [place] 616[address]83 [employer] Lead: Ion Jasso MD Basophils/100 WBC (Bld) 1 % Normal 0-2 [facility] Comment on above: Performed By: #### B MP, LIVP, LIP #### [address] [place], [place] 9118383 [employer] Lead: Ion Jasso MD Eosinophils (Bld) [#/Vol] 0.13 10*3/uL Normal 0.00-0.44 [facility] Comment on above: Performed By: #### B MP, LIVP, LIP #### [address] [place] [address] [employer] Lead: Ion Jasso MD Eosinophils/100 WBC (Bld) 2 % Normal 1-4 [facility] Comment on above: Performed By: #### B MP, LIVP, LIP #### [address] [place], [facility]83 [employer] Lead: Ion Jasso MD Erythrocyte distribution width (RBC) [Ratio] 12.5 % Normal 11.8-14.4 [facility] Comment on above: Performed By: #### B MP, LIVP, LIP #### [address] [place], [facility]83 [employer] Lead: Ion Jasso MD Hematocrit (Bld) [Volume fraction] 35.6 % Low 36.3-47.1 [facility] Comment on above: Performed By: #### B MP, LIVP, LIP #### [address] [place], [facility]83 [employer] Lead: Ion Jasso MD Hemoglobin (Bld) [Mass/Vol] 11.9 g/dL Normal 11.9-15.1 [facility] Comment on above: Performed By: #### B MP, LIVP, LIP #### [address] [place], [facility]83 [employer] Lead: Ion Jasso MD Immature granulocytes/100 WBC (Bld) 0 % Normal 0 [facility] Comment on above: Performed By: #### B MP, LIVP, LIP #### [facility] [address] [place], [facility]83 [employer] Lead: Ion Jasso MD Lymphocytes (Bld) [#/Vol] 1.70 10*3/uL Normal 1.10-3.70 [facility] Comment on above: Performed By: #### B MP, LIVP, LIP #### [address] [place] [address] [employer] Lead: Ion Jasso MD Lymphocytes/100 WBC (Bld) 29 % Normal 24-43 [facility] Comment on above: Performed By: #### B MP, LIVP, LIP #### [address] [place], [facility]83 [employer] Lead: Ion Jasso MD MCH (RBC) [Entitic mass] 33.0 pg Normal 25.2-33.5 [facility] Comment on above: Performed By: #### B MP, LIVP, LIP #### [address] [place] [id number] [employer] Lead: Ion Jasso MD MCHC (RBC) [Mass/Vol] 33.4 g/dL Normal 28.4-34.8 [facility] Comment on above: Performed By: #### B MP, LIVP, LIP #### [address] [place] [id number] [employer] Lead: Ion Jasso MD MCV (RBC) [Entitic vol] 98.6 fL Normal 82.6-102.9 [facility] Comment on above: Performed By: #### B MP, LIVP, LIP #### [address] [place] [phone] [employer] Lead: Ion Jasso MD Monocytes (Bld) [#/Vol] 1.00 10*3/uL Normal 0.10-1.20 [facility] Comment on above: Performed By: #### B MP, LIVP, LIP #### [facility] [address] [place] [address] [employer] Lead: Ion Jasso MD Monocytes/100 WBC (Bld) 17 % High 3-12 [facility] Comment on above: Performed By: #### B MP, LIVP, LIP #### [facility] [address] [place], [facility]83 [employer] Lead: Ion Jasso MD Neutrophil (Seg) 51 % Normal 36-65 [facility] Comment on above: Performed By: #### B MP, LIVP, LIP #### [facility] [address] [place] [address] Dr. [place], [place] [address] [employer] Lead: Ion Jasso MD NRBC Automated 0.0 per 100 WBC Normal 0.0 [facility] Comment on above: Performed By: #### B MP, LIVP, LIP #### [address] [place], [facility]83 [employer] Lead: Ion Jasso MD Platelet mean volume (Bld) [Entitic vol] 9.8 fL Normal 8.1-13.5 [facility] Comment on above: Performed By: #### B MP, LIVP, LIP #### [facility] [address] [place], [facility]83 [employer] Lead: Ion Jasso MD Platelets (Bld) [#/Vol] 153 10*3/uL Normal 138-453 [facility] Comment on above: Performed By: #### B MP, LIVP, LIP #### [facility] [address] [place], [place] [phone] [employer] Lead: Ion Jasso MD RBC (Bld) [#/Vol] 3.61 10*6/uL Low 3.95-5.11 [facility] Comment on above: Performed By: #### B MP, LIVP, LIP #### [facility] [address] [place] [address] Dr. [place], [place] [phone] [employer] Lead: Ion Jasso MD WBC (Bld) [#/Vol] 5.8 10*3/uL Normal 3.5-11.3 [facility] Comment on above: Performed By: #### B MP, LIVP, LIP #### [facility] [address] [place] [address] Dr. [place], [place] [phone] [employer] Lead: oIn Jasso MD Comp Metabolic Pr/rfx MGon 0 11-08-2024 Albumin [Mass/Vol] 3.6 g/dL Normal 3.5-5.2 [facility] Comment on above: Performed By: #### B MP, LIVP, LIP #### [facility] [address] [place] [address] Dr. [place], [place] [id number] [employer] Lead: Ion Jasso MD Albumin/Glob Ratio 1.7 Normal 1.0-2.5 [facility] Comment on above: Performed By: #### B MP, LIVP, LIP #### [address] [place], [place] [id number] [employer] Lead: Ion Jasso MD Alkaline Phos 203 U/L High 35-[address] [facility] Comment on above: Performed By: #### B MP, LIVP, LIP #### [facility] [address] [place] [address] Dr. [place], [place] [id number] [employer] Lead: Ion Jsaso MD ALT [Catalytic activity/Vol] 126 U/L High 10-35 [facility] Comment on above: Performed By: #### B MP, LIVP, LIP #### [facility] [address] [place] [address] Dr. [place], [place] [id number] [employer] Lead: Ion Jasso MD Anion gap [Moles/Vol] 11 mmol/L Normal 9-16 [facility] Comment on above: Performed By: #### B MP, LIVP, LIP #### [facility] [address] [place], [place] [id number] [employer] Lead: Ion Jasso MD AST [Catalytic activity/Vol] 171 U/L High 10-35 [facility] Comment on above: Performed By: #### B MP, LIVP, LIP #### [facility] [address] [place], [place] [id number] [employer] Lead: Ion Jasso MD Bilirubin [Mass/Vol] mg/dL Normal 0.00-1.20 [facility] Comment on above: Performed By: #### B MP, LIVP, LIP #### [facility] [address] [place] [address] Dr. [place], [place] [id number] [employer] Lead: Ion Jasso MD BUN/CRE Ratio 5 Low 9-[address] [facility] Comment on above: Performed By: #### B MP, LIVP, LIP #### [facility] [address] [place] [address] Dr. [place], [place] [id number] [employer] Lead: Ion Jasso MD Calcium [Mass/Vol] 9.0 mg/dL Normal 8.6-10.4 [facility] Comment on above: Performed By: #### B MP, LIVP, LIP #### [facility] [address] [place], [place] [phone] [employer] Lead: Ion Jasso MD Chloride [Moles/Vol] 107 mmol/L Normal 98-107 [facility] Comment on above: Performed By: #### B MP, LIVP, LIP #### [facility] [address] [place], [place] [phone] [employer] Ass[employer] Lead: Ion Jasso MD CO2 [Moles/Vol] 21 mmol/L Normal 20-31 [facility] Comment on above: Performed By: #### B MP, LIVP, LIP #### [facility] [address] [place] [address] [employer] Lead: Ion Jasso MD Creatinine [Mass/Vol] 0.8 mg/dL Normal 0.50-0.90 [facility] Comment on above: Performed By: #### B MP, LIVP, LIP #### [facility] [address] [place] [address] [employer] Lead: Ion Jasso MD GFR/1.73 sq M.predicted among non-blacks MDRD (S/P/Bld) [Vol rate/Area] mL/min/{1.73_m2} Normal >60 [facility] Comment on above: Result Comment: These [...] By: #### B MP, LIVP, LIP #### [facility] [address] [place] [address] [employer] Lead: Ion Jasso MD Glucose [Mass/Vol] 96 mg/dL Normal 74-99 [facility] Comment on above: Performed By: #### B MP, LIVP, LIP #### [facility] [address] [place] [address] Quality Assurance Lead: Ion Jasso MD Potassium [Moles/Vol] 4.2 mmol/L Normal 3.7-5.3 [facility] Comment on above: Performed By: #### B MP, LIVP, LIP #### [facility] [address] [place] [address] Quality Assurance Lead: Ion Jasso MD Protein [Mass/Vol] 5.6 g/dL Low 6.6-8.7 [facility] Comment on above: Performed By: #### B MP, LIVP, LIP #### [facility] [address] [place] [address] Quality Ass[employer] Lead: Ion Jasso MD Sodium [Moles/Vol] 139 mmol/L Normal 136-145 [facility] Comment on above: Performed By: #### B MP, LIVP, LIP #### [facility] [address] [place] [address] Quality Ass[employer] Lead: Ion Jasso MD Urea nitrogen [Mass/Vol] 4 mg/dL Low 6-20 [facility] Comment on above: Performed By: #### B MP, LIVP, LIP #### [facility] [address] [place] [address] [employer] Lead: Ion Jasso MD Comprehensive Metabolic Pane l w/ Reflex to on 11-08-2024 Albumin [Mass/Vol] 3.6 g/dL 3.5 - 5.2 g/dL [facility] Albumin/Globulin [Mass ratio] 1.7 {ratio} 1.0 - 2.5 [facility] ALP [Catalytic activity/Vol] 203 U/L High 35 - 104 U/L [facility] ALT [Catalytic activity/Vol] 126 U/L High 10 - 35 U/L [facility] Anion gap [Moles/Vol] 11 mmol/L 9 - 16 mmol/L [facility] AST [Catalytic activity/Vol] 171 U/L High 10 - 35 U/L [facility] Bilirubin [Mass/Vol] mg/dL 0.00 - 1.20 mg/dL [facility] Calcium [Mass/Vol] 9.0 mg/dL 8.6 - 10. 4 mg/dL [facility] Chloride [Moles/Vol] 107 mmol/L 98 - 10 7 mmol/L [facility] CO2 [Moles/Vol] 21 mmol/L 20 - 31 mmol/L [facility] Creatinine [Mass/Vol] 0.8 mg/dL 0.50 - 0.90 mg/dL [facility] EstKaylyn Rate - PINF Efra [facility] [employer] Comment on above: These results are not [...] [Mass/Vol] 96 mg/dL 74 - 99 mg/dL [facility] [employer] Interpretation and review of laboratory results Abnormal [facility] Potassium [Moles/Vol] 4.2 mmol/L 3.7 - 5.3 mmol/L [facility] Protein [Mass/Vol] 5.6 g/dL Low 6.6 - 8.7 g/dL [facility] Sodium [Moles/Vol] 139 mmol/L 136 - 145 mmol/L [facility] Urea nitrogen [Mass/Vol] 4 mg/dL Low 6 - 20 mg/dL [facility] Urea nitrogen/Creatinine [Mass ratio] 5 mg/mg Low 9 - 20 [facility] EKG 12 leadOrdered By: Brandon Cespedes on 11-08-2024 Atrial Rate 78 BPM [employer] Work Phone: P Lorado 54 degrees [employer] Work Phone: P-R Interval 136 ms [employer] Work Phone: Q-T Interval 356 ms [employer] Work Phone: QRS Duration 74 ms [employer] Work Phone: QTc Calculation (Bazett) 405 ms [employer] Work Phone: R Lorado 30 degrees [employer] Work Phone: T Lor[place] 40 degrees [employer] Work Phone: Ventricular Rate 78 BPM [employer] Work Phone: [employer] Phone: EKG 12 leadon 11-08-2024 Normal sinus rhythm Normal ECG When compared with ECG of 07-Jan-2024 14:42, No significant change was found Confirmed by Tri Cespedes ([id number]) on 11/08/2024 10:43:20 AM [facility] Tri Cespedes MD - 11/08/2024 Normal sinus rhythm Normal ECG When compared with ECG of 07-Jan-2024 14:42, No significant change was found Confirmed by Tri Cespedes ([id number]) on 11/08/2024 10:43:20 AM [facility] Lipaseon 11-08-2024 Lipase [Catalytic activity/Vol] 30 U/L 13 - 60 U/L [facility] Lipase [Catalytic activity/Vol] 30 U/L Normal 13-60 [facility] Comment on above: Performed By: #### B MP, LIVP, LIP #### [facility] [address] [place] [address] [employer] Lead: Ion Jasso MD MR Abdomen WO and [...] status post cholecystectomy. 5. Prominent duodenal diverticula. [facility] CON[facility]ID[facility] EXAMINATION: MRI OF THE ABDOMEN WITH [...] provided for review. These images were reviewed. [facility] Alexi Love MD - 11/08/2024 EXAMINATION: MRI [...] status post cholecystectomy. 5. Prominent duodenal diverticula. [facility] Radiology Study observation (narrative) [facility] MR Abdomen WO and W contrast IVOrdered By: Alexi Olivo on 11-08-2024 [facility] Work Phone: MRI ABDOMEN W WO CONTRAST [...] Alexi Olivo MD 11/08/24 Final result Normal [facility] No Panel Informationon 11-08 [facility] CBC auto differentialon Basophils (Bld) [#/Vol] 0.04 10*3/uL [facility] Immature granulocytes (Bld) [#/Vol] [facility] Interpretation and review of laboratory results Abnormal [facility] Lymphocytes/100 WBC (Bld) 1.93 % [facility] Monocytes/100 WBC (Bld) 0.78 % [facility] Neutrophils/100 WBC (Bld) 59 % 36 - 65 % [facility] Nucleated RBC/100 WBC (Bld) [Ratio] 0.0 % 0.0 per 100 WBC [facility] Segmented neutrophils/100 WBC (Bld) 4.22 % [facility] WBC other (Bld) [#/Vol] 7.1 [facility] CBC with Diffon 11-07-2024 Abs. Basophil 0.04 k/uL Normal 0.00-0.[address] [facility] Comment on above: Performed By: #### B MP, LIVP, LIP #### [facility] [address] [place] [address] [employer] Lead: Ion Jasso MD Abs.Imm.Granulocyte <0.03 Normal 0.00-0.30 [facility] Comment on above: Performed By: #### B MP, LIVP, LIP #### [facility] [address] [place] [address] [employer] Lead: Ion Jasso MD Abs.Neutrophil (Seg) 4.22 k/uL Normal 1.50-8.10 [facility] Comment on above: Performed By: #### B MP, LIVP, LIP #### [address] [place] [address] [employer] Lead: Ion Jasso MD Basophils/100 WBC (Bld) 1 % Normal 0-2 [facility] Comment on above: Performed By: #### B MP, LIVP, LIP #### [address] [place], [place] [address] [employer] Lead: Ion Jasso MD Eosinophils (Bld) [#/Vol] 0.15 10*3/uL Normal 0.00-0.44 [facility] Comment on above: Performed By: #### B MP, LIVP, LIP #### [address] [place] [address] [employer] Lead: Ion Jasso MD Eosinophils/100 WBC (Bld) 2 % Normal 1-4 [facility] Comment on above: Performed By: #### B LIZY LIVP, LIP #### [address] [place], [place] [address] [employer] Lead: Ion Jasso MD Erythrocyte distribution width (RBC) [Ratio] 12.7 % Normal 11.8-14.4 [facility] Comment on above: Performed By: #### B MP LIVP, LIP #### [address] [place], [place] [address] [employer] Lead: Ion Jasso MD Hematocrit (Bld) [Volume fraction] 39.3 % Normal 36.3-47.1 [facility] Comment on above: Performed By: #### B MP, LIVP, LIP #### [address] [place] [phone] [employer] Lead: Ion Jasso MD Hemoglobin (Bld) [Mass/Vol] 12.9 g/dL Normal 11.9-15.1 [facility] Comment on above: Performed By: #### B MP, LIVP, LIP #### [address] [place] [address] [employer] Lead: Ion Jasso MD Immature granulocytes/100 WBC (Bld) 0 % Normal 0 [facility] Comment on above: Performed By: #### B MP, LIVP, LIP #### [address] [place], [place] [phone] [employer] Lead: Ion Jasso MD Lymphocytes (Bld) [#/Vol] 1.93 10*3/uL Normal 1.10-3.70 [facility] Comment on above: Performed By: #### B MP, LIVP, LIP #### [address] [place] [address] [employer] Lead: Ion Jasso MD Lymphocytes/100 WBC (Bld) 27 % Normal 24-43 [facility] Comment on above: Performed By: #### B MP, LIVP, LIP #### [address] [place] [address] [employer] Lead: Ion Jasso MD MCH (RBC) [Entitic mass] 33.0 pg Normal 25.2-33.5 [facility] Comment on above: Performed By: #### B MP, LIVP, LIP #### [address] [place], [place] [phone] [employer] Lead: Ion Jasso MD MCHC (RBC) [Mass/Vol] 32.8 g/dL Normal 28.4-34.8 [facility] Comment on above: Performed By: #### B MP, LIVP, LIP #### [address] [place] [address] [employer] Lead: Ion Jasso MD MCV (RBC) [Entitic vol] 100.5 fL Normal 82.6-102.9 [facility] Comment on above: Performed By: #### B MP, LIVP, LIP #### [facility] [address] [place] [address] Quality Ass[employer] Lead: Ion Jasso MD Monocytes (Bld) [#/Vol] 0.78 10*3/uL Normal 0.10-1.20 [facility] Comment on above: Performed By: #### B MP, LIVP, LIP #### [address] [place], [place] 1790683 [employer] Lead: Ion Jasso MD Monocytes/100 WBC (Bld) 11 % Normal 3-12 [facility] Comment on above: Performed By: #### B MP, LIVP, LIP #### [address] [place] [address] [employer] Lead: Ion Jasso MD Neutrophil (Seg) 59 % Normal 36-65 [facility] Comment on above: Performed By: #### B MP, LIVP, LIP #### [address] [place], [place] 9576583 [employer] Lead: Ion Jasso MD NRBC Automated 0.0 per 100 WBC Normal 0.0 [facility] Comment on above: Performed By: #### B MP, LIVP, LIP #### [address] [place], [place] [phone] [employer] Lead: Ion Jasso MD Platelet mean volume (Bld) [Entitic vol] 10.4 fL Normal 8.1-13.5 [facility] Comment on above: Performed By: #### B MP, LIVP, LIP #### [address] [place] [address] Quality [employer] Lead: Ion Jasso MD Platelets (Bld) [#/Vol] 177 10*3/uL Normal 138-453 [facility] Comment on above: Performed By: #### B MP, LIVP, LIP #### [facility] [address] [place], [place] [phone] [employer] Lead: Ion Jasso MD RBC (Bld) [#/Vol] 3.91 10*6/uL Low 3.95-5.11 [facility] Comment on above: Performed By: #### B MP, LIVP, LIP #### [facility] [address] [place], [place] 6702283 [employer] Lead: Ion Jasso MD WBC (Bld) [#/Vol] 7.1 10*3/uL Normal 3.5-11.3 [facility] Comment on above: Performed By: #### B MP, LIVP, LIP #### [facility] [address] [place], [place] 6875083 [employer] Lead: Ion Jasso MD Comp Metabolic Pr/rfx MGon 0 11-07-2024 Albumin [Mass/Vol] 3.9 g/dL Normal 3.5-5.2 [facility] Comment on above: Performed By: #### B MP, LIVP, LIP #### [facility] [address] [place], [place] [phone] [employer] Lead: Ion Jasso MD Albumin/Glob Ratio 1.7 Normal 1.0-2.5 [facility] Comment on above: Performed By: #### B MP, LIVP, LIP #### [facility] [address] [place], [place] [phone] [employer] Lead: Ion Jasso MD Alkaline Phos 143 U/L High 35-[address] [facility] Comment on above: Performed By: #### B MP, LIVP, LIP #### [facility] [address] [place], [place] [phone] [employer] Lead: Ion Jasso MD ALT [Catalytic activity/Vol] 42 U/L High 10-35 [facility] Comment on above: Performed By: #### B MP, LIVP, LIP #### [facility] [address] [place] [address] Dr. [place], [place] [phone] [employer] Lead: Ion Jasso MD Anion gap [Moles/Vol] 10 mmol/L Normal 9-16 [facility] Comment on above: Performed By: #### B MP, LIVP, LIP #### [facility] [address] [place] [address] Dr. [place], [place] [phone] [employer] Lead: Ion Jasso MD AST [Catalytic activity/Vol] 145 U/L High [facility] Comment on above: Performed By: #### B MP, LIVP, LIP #### [address] [place], [place] 4866483 [employer] Lead: Ion Jasso MD Bilirubin [Mass/Vol] 0.3 mg/dL Normal 0.00-1.20 [facility] Comment on above: Performed By: #### B MP, LIVP, LIP #### [facility] [address] [place] [address] Dr. [place], [place] [phone] [employer] Lead: Ion Jasso MD BUN/CRE Ratio 8 Low 9-[address] [facility] Comment on above: Performed By: #### B MP, LIVP, LIP #### [facility] [address] [place] [address] Dr. [place], [place] [phone] [employer] Lead: Ion Jasso MD Calcium [Mass/Vol] 9.1 mg/dL Normal 8.6-10.4 [facility] Comment on above: Performed By: #### B MP, LIVP, LIP #### [facility] [address] [place] [address] Dr. [place], [place] [phone] [employer] Lead: Ion Jasso MD Chloride [Moles/Vol] 106 mmol/L Normal 98-107 [facility] Comment on above: Performed By: #### B MP, LIVP, LIP #### [facility] [address] [place] [address] [place] [address] Quality Ass[employer] Lead: Ion Jasso MD CO2 [Moles/Vol] 23 mmol/L Normal 20-31 [facility] Comment on above: Performed By: #### B MP, LIVP, LIP #### [facility] [address] [place] [address] Quality Assurance Lead: Ion Jasso MD Creatinine [Mass/Vol] 0.8 mg/dL Normal 0.50-0.90 [facility] Comment on above: Performed By: #### B MP LIVP, LIP #### [facility] [address] [place] [address] [employer] Ass[employer] Lead: Ion Jasso MD GFR/1.73 sq M.predicted among non-blacks MDRD (S/P/Bld) [Vol rate/Area] mL/min/{1.73_m2} Normal >60 [facility] Comment on above: Result Comment: These [...] By: #### B MP LIVP, LIP #### [address] [place] [address] Quality Ass[employer] Lead: Ion Jasso MD Glucose [Mass/Vol] 92 mg/dL Normal 74-99 [facility] Comment on above: Performed By: #### B MP LIVP, LIP #### [facility] [address] [place] [address] Quality Assurance Lead: Ion Jasso MD Potassium [Moles/Vol] 4.5 mmol/L Normal 3.7-5.3 [facility] Comment on above: Performed By: #### B MP, LIVP, LIP #### [facility] [address] [place] [address] Quality Assurance Lead: Ion Jasso MD Protein [Mass/Vol] 6.1 g/dL Low 6.6-8.7 [facility] Comment on above: Performed By: #### B MP, LIVP, LIP #### [facility] [address] [place] [address] Quality Assurance Lead: Ion Jasso MD Sodium [Moles/Vol] 139 mmol/L Normal 136-145 [facility] Comment on above: Performed By: #### B MP, LIVP, LIP #### [facility] [address] [place] [address] Quality Ass[employer] Lead: Ion Jasso MD Urea nitrogen [Mass/Vol] 6 mg/dL Normal 6-20 [facility] Comment on above: Performed By: #### B MP, LIVP, LIP #### [facility] [address] [place] [address] [employer] Lead: Ion Jasso MD Comprehensive Metabolic Pane l w/ Reflex to [facility] 11-07-2024 Albumin [Mass/Vol] 3.9 g/dL 3.5 - 5.2 g/dL [facility] Albumin/Globulin [Mass ratio] 1.7 {ratio} 1.0 - 2.5 [facility] ALP [Catalytic activity/Vol] 143 U/L High 35 - 104 U/L [facility] ALT [Catalytic activity/Vol] 42 U/L High 10 - 35 U/L [facility] Anion gap [Moles/Vol] 10 mmol/L 9 - 16 mmol/L [facility] AST [Catalytic activity/Vol] 145 U/L High 10 - 35 U/L [facility] Bilirubin [Mass/Vol] 0.3 mg/dL 0.00 - 1.20 mg/dL [facility] Calcium [Mass/Vol] 9.1 mg/dL 8.6 - 10. 4 mg/dL [facility] Chloride [Moles/Vol] 106 mmol/L 98 - 10 7 mmol/L [facility] CO2 [Moles/Vol] 23 mmol/L 20 - 31 mmol/L [facility] Creatinine [Mass/Vol] 0.8 mg/dL 0.50 - 0.90 mg/dL [facility] Kaylyn Prather - [employer] [facility] Comment on above: These results [...] [Mass/Vol] 92 mg/dL 74 - 99 mg/dL [facility] Potassium [Moles/Vol] 4.5 mmol/L 3.7 - 5.3 mmol/L [facility] Protein [Mass/Vol] 6.1 g/dL Low 6.6 - 8.7 g/dL [facility] Sodium [Moles/Vol] 139 mmol/L 136 - 145 mmol/L [facility] Urea nitrogen [Mass/Vol] 6 mg/dL 6 - 20 mg/dL [facility] Urea nitrogen/Creatinine [Mass ratio] 8 mg/mg Low 9 - 20 [facility] EKG Rhythm Stripon [facility] Lipaseon 11-07-2024 Lipase [Catalytic activity/Vol] 285 U/L High 13 - 60 U/L [facility] Lipase [Catalytic activity/Vol] 285 U/L High 13-60 [facility] Comment on above: Performed By: #### B MP, LIVP, LIP #### [facility] [address] [place] [address] [employer] Lead: Ion Jasso MD No Panel Informationon 11-07 Interpretation and review of laboratory results Abnormal [facility] CBC with Auto Differentialon 11-06-2024 Basophils (Bld) [#/Vol] 0.08 10*3/uL [facility] Basophils/100 WBC (Bld) 1 % 0 - 2 % [facility] Eosinophils (Bld) [#/Vol] 0.10 10*3/uL [facility] Eosinophils/100 WBC (Bld) 1 % 1 - 4 % [facility] Erythrocyte distribution width (RBC) [Ratio] 12.2 % 11.8 - 14.4 % [facility] Hematocrit (Bld) [Volume fraction] 43.1 % 36.3 - 47.1 % [facility] Hemoglobin (Bld) [Mass/Vol] 14.5 g/dL 11.9 - 15.1 g/dL [facility] Immature granulocytes (Bld) [#/Vol] [facility] Immature granulocytes/100 WBC (Bld) 0 % 0 [facility] Interpretation and review of laboratory results Abnormal [facility] Lymphocytes/100 WBC (Bld) 21 % Low 24 - 43 % [facility] Lymphocytes/100 WBC (Bld) 1.66 % [facility] MCH (RBC) [Entitic mass] 32.9 pg 25.2 - 33.5 pg [facility] MCHC (RBC) [Mass/Vol] 33.6 g/dL 28.4 - 34.8 g/dL [facility] MCV (RBC) [Entitic vol] 97.7 fL 82.6 - 102.9 fL [facility] Monocytes/100 WBC (Bld) 12 % 3 - 12 % [facility] Monocytes/100 WBC (Bld) 0.96 % [facility] Neutrophils/100 WBC (Bld) 65 % 36 - 65 % [facility] Nucleated RBC/100 WBC (Bld) [Ratio] 0.0 % 0.0 per 100 WBC [facility] Platelet mean volume (Bld) [Entitic vol] 9.5 fL 8.1 - 13.5 fL [facility] Platelets (Bld) [#/Vol] 224 10*3/uL [facility] RBC (Bld) [#/Vol] 4.41 10*6/uL 3.95 - 5.11 m/uL [facility] Segmented neutrophils/100 WBC (Bld) 4.97 % [facility] WBC other (Bld) [#/Vol] 7.8 [facility] CBC with Diffon 11-06-2024 Abs. Basophil 0.08 k/uL Normal 0.00-0.[address] [facility] Comment on above: Performed By: #### L IP, CDP, CP #### [facility] [address] [place], [place] [id number] [employer] Lead: Ion Jasso MD Abs.Imm.Granulocyte <0.03 Normal 0.00-0.30 [facility] Comment on above: Performed By: #### L IP, CDP, CP #### [address] [place] [phone] [employer] Lead: Ion Jasso MD Abs.Neutrophil (Seg) 4.97 k/uL Normal 1.50-8.10 [facility] Comment on above: Performed By: #### L IP, CDP, CP #### [address] [place] [address] [employer] Lead: Ion Jasso MD Basophils/100 WBC (Bld) 1 % Normal 0-2 [facility] Comment on above: Performed By: #### L IP, CDP, CP #### [address] [place], [place] [phone] [employer] Lead: Ion Jasso MD Eosinophils (Bld) [#/Vol] 0.10 10*3/uL Normal 0.00-0.44 [facility] Comment on above: Performed By: #### L IP, CDP, CP #### [address] [place], [place] [phone] [employer] Lead: Ion Jasso MD Eosinophils/100 WBC (Bld) 1 % Normal 1-4 [facility] Comment on above: Performed By: #### L IP, CDP, CP #### [facility] [address] [place] [address] [employer] Lead: Ion Jasso MD Erythrocyte distribution width (RBC) [Ratio] 12.2 % Normal 11.8-14.4 [facility] Comment on above: Performed By: #### L IP, CDP, CP #### [address] [place], [place] [address] [employer] Lead: Ion Jasso MD Hematocrit (Bld) [Volume fraction] 43.1 % Normal 36.3-47.1 [facility] Comment on above: Performed By: #### L IP, CDP, CP #### [address] [place] [address] [employer] Lead: Ion Jasso MD Hemoglobin (Bld) [Mass/Vol] 14.5 g/dL Normal 11.9-15.1 [facility] Comment on above: Performed By: #### L IP, CDP, CP #### [address] [place], [place] [address] [employer] Lead: Ion Jasso MD Immature granulocytes/100 WBC (Bld) 0 % Normal 0 [facility] Comment on above: Performed By: #### L IP CDP, CP #### [address] [place], [place] [address] [employer] Lead: Ion Jasso MD Lymphocytes (Bld) [#/Vol] 1.66 10*3/uL Normal 1.10-3.70 [facility] Comment on above: Performed By: #### L IP, CDP, CP #### [address] [place], [place] 1933683 [employer] Lead: Ion Jasso MD Lymphocytes/100 WBC (Bld) 21 % Low 24-43 [facility] Comment on above: Performed By: #### L IP, CDP, CP #### [address] [place], [place] [id number] Quality Assurance Lead: Ion Jasso MD MCH (RBC) [Entitic mass] 32.9 pg Normal 25.2-33.5 [facility] Comment on above: Performed By: #### L IP, CDP, CP #### [address] [place], [facility]15 ( Quality Assurance Lead: Ion Jasso MD MCHC (RBC) [Mass/Vol] 33.6 g/dL Normal 28.4-34.8 [facility] Comment on above: Performed By: #### L IP, CDP, CP #### [address] [place], [facility]83 Quality Assurance Lead: Ion Jasso MD MCV (RBC) [Entitic vol] 97.7 fL Normal 82.6-102.9 [facility] Comment on above: Performed By: #### L IP, CDP, CP #### [address] [place], [facility]83 Quality Assurance Lead: Ion Jasso MD Monocytes (Bld) [#/Vol] 0.96 10*3/uL Normal 0.10-1.20 [facility] Comment on above: Performed By: #### L IP, CDP, CP #### [address] [place], [facility]83 Quality Assurance Lead: Ion Jasso MD Monocytes/100 WBC (Bld) 12 % Normal 3-12 [facility] Comment on above: Performed By: #### L IP, CDP, CP #### [address] [place], [place] [id number] Quality Assurance Lead: Ion Jasso MD Neutrophil (Seg) 65 % Normal 36-65 [facility] Comment on above: Performed By: #### L IP, CDP, CP #### [address] [place], [facility]83 Quality Assurance Lead: Ion Jasso MD NRBC Automated 0.0 per 100 WBC Normal 0.0 [facility] Comment on above: Performed By: #### L IP CDP, CP #### [address] [place], [facility]83 Quality Assurance Lead: Ion Jasso MD Platelet mean volume (Bld) [Entitic vol] 9.5 fL Normal 8.1-13.5 [facility] Comment on above: Performed By: #### L IP, CDP, CP #### [address] [place], [facility]83 Quality Assurance Lead: Ion Jasso MD Platelets (Bld) [#/Vol] 224 10*3/uL Normal 138-453 [facility] Comment on above: Performed By: #### L WALTER ROONEY, CP #### [address] [place], [facility]83 Quality Assurance Lead: Ion Jasso MD RBC (Bld) [#/Vol] 4.41 10*6/uL Normal 3.95-5.11 [facility] Comment on above: Performed By: #### L IP CDP, CP #### [address] [place], [facility]83 Quality Assurance Lead: Ion Jasso MD WBC (Bld) [#/Vol] 7.8 10*3/uL Normal 3.5-11.3 [facility] Comment on above: Performed By: #### L IP CDP, CP #### [address] [place], [facility]83 Quality Assurance Lead: [facility] Albumin/Globulin [Mass ratio] 1.5 {ratio} 1.0 - 2.5 [facility] ALP [Catalytic activity/Vol] 145 U/L High 35 - 104 U/L [facility] Est, Glom Filt Rate 84 - PINF [facility] Comment on above: These results [...] [Mass ratio] 9 mg/mg 9 - 20 [facility] Comp Metabolic Profon 2024 Albumin [Mass/Vol] 4.4 g/dL Normal 3.5-5.2 [facility] Comment on above: Performed By: #### L WALTER ROONEY, CP #### [address] [place] [address] Quality Assurance Lead: Ion Jasso MD ALT [Catalytic activity/Vol] 13 U/L Normal 10-35 [facility] Comment on above: Performed By: #### L TORIBIO CDP, CP #### [address] [place] [address] Quality Assurance Lead: Ion Jasso MD Anion gap [Moles/Vol] 12 mmol/L Normal 9-16 [facility] Comment on above: Performed By: #### L TORIBIO CDP, CP #### [address] [place] [address] Quality Assurance Lead: Ion Jasso MD AST [Catalytic activity/Vol] 26 U/L Normal 10-35 [facility] Comment on above: Performed By: #### L IP CDP, CP #### [address] [place] [address] Quality Assurance Lead: Ion Jasso MD Bilirubin [Mass/Vol] mg/dL Normal 0.00-1.20 [facility] Comment on above: Performed By: #### L IP CDP, CP #### [address] [place] [address] Quality Assurance Lead: Ion Jasso MD Calcium [Mass/Vol] 10.4 mg/dL Normal 8.6-10.4 [facility] Comment on above: Performed By: #### L IP, CDP, CP #### [address] [place], [place] [id number] Quality Assurance Lead: Ion Jasso MD Chloride [Moles/Vol] 104 mmol/L Normal 98-107 [facility] Comment on above: Performed By: #### L IP, CDP, CP #### [address] [place], [place] [phone] Quality Assurance Lead: Ion Jasso MD CO2 [Moles/Vol] 24 mmol/L Normal 20-31 [facility] Comment on above: Performed By: #### L IP, CDP, CP #### [address] [place], [place] [phone] Quality Assurance Lead: Ion Jasso MD Creatinine [Mass/Vol] 0.8 mg/dL Normal 0.50-0.90 [facility] Comment on above: Performed By: #### L IP, CDP, CP #### [address] [place], [place] [id number] Quality Assurance Lead: Ion Jasso MD Glucose [Mass/Vol] 97 mg/dL Normal 74-99 [facility] Comment on above: Performed By: #### L IP, CDP, CP #### [address] [place] [address] Quality Assurance Lead: Ion Jasso MD Potassium [Moles/Vol] 3.7 mmol/L Normal 3.7-5.3 [facility] Comment on above: Performed By: #### L IP, CDP, CP #### [address] [place], [place] [phone] Quality Assurance Lead: Ion Jasso MD Protein [Mass/Vol] 7.3 g/dL Normal 6.6-8.7 [facility] Comment on above: Performed By: #### L IP CDP, CP #### [facility] [address] [place] [address] [place] [address] Quality Assurance Lead: Ion Jasso MD Sodium [Moles/Vol] 140 mmol/L Normal 136-145 [facility] Comment on above: Performed By: #### L IP, CDP, CP #### [facility] [address] [place] [address] Quality Assurance Lead: Ion Jasso MD Urea nitrogen [Mass/Vol] 7 mg/dL Normal 6-20 [facility] Comment on above: Performed By: #### L TORIBIO CDP, CP #### [facility] [address] [place] [address] [place] [address] Quality Assurance Lead: Ion Jasso MD Albumin/Glob Ratio 1.5 Normal 1.0-2.5 [facility] Comment on above: Performed By: #### L WALTER ROONEY, CP #### [address] [place] [address] Quality Assurance Lead: Ion Jasso MD Alkaline Phos 145 U/L High 35-[address] [facility] Comment on above: Performed By: #### L TORIBIO CDP, CP #### [facility] [address] [place] [address] [place] [address] Quality Assurance Lead: Ion Jasso MD BUN/CRE Ratio 9 Normal 9-[address] [facility] Comment on above: Performed By: #### L IP CDP, CP #### [facility] [address] [place] [address] Quality Assurance Lead: Ion Jasso MD GFR/1.73 sq M.predicted among non-blacks MDRD (S/P/Bld) [Vol rate/Area] 84 mL/min/{1.73_m2} Normal >60 [facility] Comment on above: Result Comment: These [...] By: #### L WALTER ROONEY, CP #### [facility] [address] [place] [address] Quality Assurance Lead: Ion Jasso MD Lipaseon 11-06-2024 Lipase [Catalytic activity/Vol] 247 U/L High 13-60 [facility] Comment on above: Performed By: #### L WALTER ROONEY, CP #### [facility] [address] [place] [address] Quality Assurance Lead: Ion Jasso MD No Panel Informationon 11-06 Interpretation and review of laboratory results Abnormal [facility] Alanine aminotransferase [En zymatic activity/volume] in Serum or PlasmaOrdered By: Andrew Ponce on 10-28-2024 ALT [Catalytic activity/Vol] 10 U/L Normal 7-52 [facility] Comment on above: Performed By: #### C BC, LIPASE, BMP, HEPATIC #### [facility] [address] [place] [address] [facility] Albumin [Mass/volume] in Ser um or Plasma by Bromocresol green (BCG) dye binding methoOrdered By: Andrew Ponce on 10-28-2024 Albumin BCG dye [Mass/Vol] 4.5 g/dL 3.5-5.7 [facility] Alkaline phosphatase [Enzyma tic activity/volume] in Serum or PlasmaOrdered By: Andrew Ponce on 10-28-2024 ALP [Catalytic activity/Vol] 136 U/L High 34-104 [facility] Comment on above: Performed By: #### C BC, LIPASE, BMP, HEPATIC #### [facility] [address] [place] [address] Appearance of UrineOrdered B y: Andrew Ponce on 10-28-2024 Appearance (U) Clear Normal Clear [facility] Comment on above: Order Comment: Name Collection Type:: Voided Performed By: #### C BC, LIPASE, BMP, HEPATIC #### [address] Aspartate aminotransferase [ Enzymatic activity/volume] in Serum or PlasmaOrdered By: Andrew Ponce on 10-28-2024 AST [Catalytic activity/Vol] 18 U/L Normal 13-39 [facility] Comment on above: Performed By: #### C BC, LIPASE, BMP, HEPATIC #### [address] Bacteria [Presence] in Urine by AutomatedOrdered By: Andrew Ponce on 10-28-2024 Bacteria Auto Ql (U) Rare [HPF] None Seen [facility] Basic Metabolic Panelon 10-08 Creatinine Clr Calc Pharmacy 59.85 Normal [facility] Comment on above: Performed By: #### C BC, LIPASE, BMP, HEPATIC #### [address] GFR/1.73 sq M.predicted MDRD (S/P/Bld) [Vol rate/Area] mL/min/{1.73_m2} Normal [facility] Comment on above: Performed By: #### C BC, LIPASE, BMP, HEPATIC #### [place] [address] [place] Basophils [#/volume] in Bloo d by Automated countOrdered By: Andrew Ponce on 10-28-2024 Basophils (Bld) [#/Vol] 0.1 10*3/uL Normal 0.0-0.2 [facility] Comment on above: Result Comment: PERF ORMED BY: [place] [id number] PATHOLOGIST COUNCILOR TARA BENSON M.D. Performed By: #### C BC, LIPASE, BMP, HEPATIC #### [address] Basophils/100 leukocytes in Blood by Automated countOrdered By: Andrew Ponce on 10-28-2024 Basophils/100 WBC (Bld) 1.0 % Normal . [facility] Comment on above: Performed By: #### C BC, LIPASE, BMP, HEPATIC #### [facility] [address] Bilirubin Test strip Ql (U)O rdered By: Andrew Ponce on 10-28-2024 Bilirubin Ql (U) Negative Negative [facility] Bilirubin.direct [Mass/volum e] in Serum or PlasmaOrdered By: Andrew Ponce on 10-28-2024 Bilirubin.direct [Mass/Vol] 0.00 mg/dL Low 0.03-0.18 [facility] Comment on above: If the DBIL is less than 0.1, IBIL is not able to becalculated. Bilirubin.total [Mass/volume ] in Serum or PlasmaOrdered By: Andrew Ponce on 10-28-2024 Bilirubin [Mass/Vol] 0.3 mg/dL Normal 0.3-1.0 [facility] Comment on above: Performed By: #### C BC, LIPASE, BMP, HEPATIC #### [facility] [address] [place] [address] CT abdomen pelvis w conon CT abdomen pelvis w con [place] [address] CT Scan Report Signed Patient: Chioma Arciniega MR#: [id number] : 1970 Acct:[id number] Age/Sex: 54 / F ADM Date: 10/28/24 Loc: ER Room: Type: [facility] ER Attending Dr: Copies to: Andrew Ponce [...] Mendieta M.D. 10/28/2024 4:38 PM Dictation Location: [facility] Transcribed By: [facility] 10/28/24 1638 Dictated By: Cruzito Mendieta DO 10/28/24 1636 Signed By: 10/28/24 1638 Normal [facility] Calcium [Mass/volume] in Ser um or PlasmaOrdered By: Andrew Ponce on 10-28-2024 Calcium [Mass/Vol] 10.2 mg/dL Normal 8.6-10.3 [facility] Comment on above: Performed By: #### C BC, LIPASE, BMP, HEPATIC #### [facility] [address] Carbon dioxide, total [Moles /volume] in Serum or PlasmaOrdered By: Andrew Ponce on 10-28-2024 CO2 [Moles/Vol] 30.4 mmol/L Normal 21.0-31.0 [facility] Comment on above: Performed By: #### C BC, LIPASE, BMP, HEPATIC #### [facility] [address] [place] [address] [place] Chloride [Moles/volume] in S erika or PlasmaOrdered By: Andrew Ponce on 10-28-2024 Chloride [Moles/Vol] 104 mmol/L Normal 98-107 [facility] Comment on above: Performed By: #### C BC, LIPASE, BMP, HEPATIC #### [address] Color of Urine by AutoOrdere d By: Andrew Ponce on 10-28-2024 Color (U) Light-yellow Normal Yellow [facility] Comment on above: Order Comment: Name Collection Type:: Voided Performed By: #### C BC, LIPASE, BMP, HEPATIC #### [address] Complete Blood Count Auto Di ffon 10-28-2024 Mean Corpuscular HGB Conc 34.3 g/dL Normal 32.0-35.0 [facility] Comment on above: Performed By: #### C BC, LIPASE, BMP, HEPATIC #### [address] Monocytes/100 WBC (Bld) 19.51 % Normal 0.00-20.00 [facility] Comment on above: Performed By: #### C BC, LIPASE, BMP, HEPATIC #### [address] NRBC% 0.0 /100{WBC} Normal 0-0.5 [facility] Comment on above: Performed By: #### C BC, LIPASE, BMP, HEPATIC #### [address] White Blood Count 8.6 [CFU]/mL Normal 3.8-11.6 [facility] Comment on above: Performed By: #### C BC, LIPASE, BMP, HEPATIC #### [place] [address] [place] Creatinine [Mass/volume] in Serum or PlasmaOrdered By: Andrew Ponce on 10-28-2024 Creatinine [Mass/Vol] 0.84 mg/dL Normal 0.60-1.20 [facility] Comment on above: Performed By: #### C BC, LIPASE, BMP, HEPATIC #### [place] [address] [place] Dipstick and Microscopicon 0 10-28-2024 Bacteria,Urine Rare Normal None Seen [facility] Comment on above: Order Comment: Name Collection Type:: Voided Performed By: #### C BC, LIPASE, BMP, HEPATIC #### [facility] [address] [place] [id number] [place] Bilirubin,Urine Negative Normal Negative [facility] Comment on above: Order Comment: Name Collection Type:: Voided Performed By: #### C BC, LIPASE, BMP, HEPATIC #### [facility] [address] Glucose Ql (U) Normal Normal Normal [facility] Comment on above: Order Comment: Name Collection Type:: Voided Performed By: #### C BC, LIPASE, BMP, HEPATIC #### [facility] [address] Hyaline Casts,Urine None Normal 0-8 [facility] Comment on above: Order Comment: Name Collection Type:: Voided Performed By: #### C BC, LIPASE, BMP, HEPATIC #### [address] Mucus,Urine Rare Normal [facility] Comment on above: Order Comment: Name Collection Type:: Voided Result Comment: PERF ORMED BY: [place] [id number] PATHOLOGIST COUNCILOR TARA BENSON M.D. Performed By: #### C BC, LIPASE, BMP, HEPATIC #### [address] Nitrite,Urine Negative Normal Negative [facility] Comment on above: Order Comment: Name Collection Type:: Voided Performed By: #### C BC, LIPASE, BMP, HEPATIC #### [place] [id number] [facility] Occult Blood,Urine 1+ Normal Negative [facility] Comment on above: Order Comment: Name Collection Type:: Voided Result Comment: PERF ORMED BY: [place] [id number] PATHOLOGIST COUNCILOR TARA BENSON M.D. Performed By: #### C BC, LIPASE, BMP, HEPATIC #### [place] [id number] [place] Protein,Urine Negative Normal Negative [facility] Comment on above: Order Comment: Name Collection Type:: Voided Performed By: #### C BC, LIPASE, BMP, HEPATIC #### [address] RBC,Urine 1-2 Normal 0-4 [facility] Comment on above: Order Comment: Name Collection Type:: Voided Performed By: #### C BC, LIPASE, BMP, HEPATIC #### [address] Specificy [place],Urine 1.017 Normal 1.001-1.03 0 [facility] Comment on above: Order Comment: Name Collection Type:: Voided Performed By: #### C BC, LIPASE, BMP, HEPATIC #### [address] Squamous Epithelial Cell,Urine 1-2 Normal 0-2 [facility] Comment on above: Order Comment: Name Collection Type:: Voided Performed By: #### C BC, LIPASE, BMP, HEPATIC #### [address] Urobilinogen,Urine Normal Normal Normal [facility] Comment on above: Order Comment: Name Collection Type:: Voided Performed By: #### C BC, LIPASE, BMP, HEPATIC #### [address] WBC,Urine 1-2 Normal 0-4 [facility] Comment on above: Order Comment: Name Collection Type:: Voided Performed By: #### C BC, LIPASE, BMP, HEPATIC #### [address] Eosinophils [#/volume] in Bl ood by Automated countOrdered By: Andrew Ponce on 10-28-2024 Eosinophils (Bld) [#/Vol] 0.1 10*3/uL Normal 0.0-0.45 [facility] Comment on above: Performed By: #### C BC, LIPASE, BMP, HEPATIC #### [address] Eosinophils/100 leukocytes i n Blood by Automated countOrdered By: Andrew Ponce on 10-28-2024 Eosinophils/100 WBC (Bld) 1.5 % Normal . [facility] Comment on above: Performed By: #### C BC, LIPASE, BMP, HEPATIC #### [facility] [address] Epithelial cells.squamous [# /area] in Urine sediment by Automated countOrdered By: Andrew Ponce on 10-28-2024 Epithelial cells.squamous Auto (Urine sed) [#/Area] 1-2 [HPF] 0-2 [facility] Erythrocyte distribution wid th [Ratio] by Automated countOrdered By: Andrew Ponce on 10-28-2024 Erythrocyte distribution width (RBC) [Ratio] 13.6 % Normal 11.9-15.3 [facility] Comment on above: Performed By: #### C BC, LIPASE, BMP, HEPATIC #### [facility] [address] Erythrocytes [#/area] in Uri ne sediment by Automated countOrdered By: Andrew Ponce on 10-28-2024 RBC Auto (Urine sed) [#/Area] 1-2 [HPF] 0-4 [facility] Erythrocytes [#/volume] in B lood by Automated countOrdered By: Andrew Ponce on 10-28-2024 RBC (Bld) [#/Vol] 4.30 10*6/uL Normal 3.60-5.00 [facility] Comment on above: Performed By: #### C BC, LIPASE, BMP, HEPATIC #### [facility] [address] Glomerular filtration rate [ Volume Rate/Area] in Serum, Plasma or Blood by CreatinineOrdered By: Andrew Ponce on 10-28-2024 Glomerular filtration rate [Volume Rate/Area] in Serum, Plasma or Blood by Creatinine > 60.0 mL/Min [facility] Glucose [Mass/volume] in Ser um or PlasmaOrdered By: Andrew Ponce on 10-28-2024 Glucose [Mass/Vol] 95 mg/dL Normal 70-100 [facility] Comment on above: ADA recommended refe rence rangeRandom Glucose Reference Range is dependent on time and content of last meal. Glucose of more than 200 mg/dL in a nonstressed, ambulatory subject supports the diagnosis of Diabetes Mellitus. Result Comment: [place] om Glucose Reference Range is dependent on time and content of last meal. Glucose of more than 200 mg/dL in a nonstressed, ambulatory subject supports the diagnosis of Diabetes Mellitus. ADA recommended reference range Performed By: #### C BC, LIPASE, BMP, HEPATIC #### [facility] [address] Glucose [Mass/volume] in Uri ne by Test stripOrdered By: Andrew Ponce on 10-28-2024 Glucose Test strip (U) [Mass/Vol] Normal mg/dL Normal [facility] Hematocrit [Volume Fraction] of Blood by Automated countOrdered By: Andrew Ponce on 10-28-2024 Hematocrit (Bld) [Volume fraction] 42.2 % Normal 34.0-46.4 [facility] Comment on above: Performed By: #### C BC, LIPASE, BMP, HEPATIC #### [address] Hemoglobin Test strip Ql (U) Ordered By: Andrew Ponce on 10-28-2024 Hemoglobin Ql (U) 1+ High Negative [facility] Hemoglobin [Mass/volume] in BloodOrdered By: Andrew Ponce on 10-28-2024 Hemoglobin (Bld) [Mass/Vol] 14.5 g/dL Normal 11.8-15.4 [facility] Comment on above: Performed By: #### C BC, LIPASE, BMP, HEPATIC #### [facility] [address] Hepatic Panelon 10-28-2024 Albumin [Mass/Vol] 4.5 g/dL Normal 3.5-5.7 [facility] Comment on above: Performed By: #### C BC, LIPASE, BMP, HEPATIC #### [address] Bilirubin,Indirect 0.3 mg/dL Normal [facility] Comment on above: Performed By: #### C BC, LIPASE, BMP, HEPATIC #### [facility] [address] Bilirubin.indirect [Mass/Vol] 0.00 mg/dL Low 0.03-0.18 [facility] Comment on above: Result Comment: If t he DBIL is less than 0.1, IBIL is not able to be calculated. Performed By: #### C BC, LIPASE, BMP, HEPATIC #### [facility] [address] [place] [address] [place] Hyaline casts [#/area] in Ur ine sediment by Automated countOrdered By: Andrew Ponce on 10-28-2024 Hyaline casts Auto (Urine sed) [#/Area] None [LPF] 0-8 [facility] Ketones [Presence] in Urine by Test stripOrdered By: Andrew Ponce on 10-28-2024 Ketones Ql (U) Negative Normal Negative [facility] Comment on above: Order Comment: Name Collection Type:: Voided Performed By: #### C BC, LIPASE, BMP, HEPATIC #### [address] Leukocyte esterase [Presence ] in Urine by Test stripOrdered By: Andrew Ponce on 10-28-2024 Leukocyte esterase Test strip Ql (U) Negative Normal Negative [facility] Comment on above: Order Comment: Name Collection Type:: Voided Performed By: #### C BC, LIPASE, BMP, HEPATIC #### [place] [address] [place] Leukocytes [#/area] in Urine sediment by Automated countOrdered By: Andrew Ponce on 10-28-2024 WBC Auto (Urine sed) [#/Area] 1-2 [HPF] 0-4 [facility] Leukocytes [#/volume] correc aurelia for nucleated erythrocytes in Blood by Automated counOrdered By: Andrew Ponce on 10-28-2024 WBC corrected for nucl RBC Auto (Bld) [#/Vol] 8.6 10*3/uL 3.8-11.6 [facility] Leukocytes [#/volume] in Blo od by Automated countOrdered By: Andrew Ponce on 10-28-2024 WBC (Bld) [#/Vol] 8.6 10*3/uL Normal 3.8-11.6 [facility] Comment on above: Performed By: #### C BC, LIPASE, BMP, HEPATIC #### [address] Lipase [Enzymatic activity/v olume] in Serum or PlasmaOrdered By: Andrew Ponce on 10-28-2024 Lipase [Catalytic activity/Vol] 140.0 U/L High 11.0-82.0 [facility] Comment on above: Result Comment: PERF ORMED BY: [place] [id number] PATHOLOGIST COUNCILOR TARA BENSON M.D. Performed By: #### C BC, LIPASE, BMP, HEPATIC #### [address] Lymphocytes [#/volume] in Bl ood by Automated countOrdered By: Andrew Ponce on 10-28-2024 Lymphocytes (Bld) [#/Vol] 2.5 10*3/uL Normal 1.00-4.8 [facility] Comment on above: Performed By: #### C BC, LIPASE, BMP, HEPATIC #### [address] Lymphocytes/100 leukocytes i n Blood by Automated countOrdered By: Andrew Ponce on 10-28-2024 Lymphocytes/100 WBC (Bld) 28.8 % Normal . [facility] Comment on above: Performed By: #### C BC, LIPASE, BMP, HEPATIC #### [address] MCH [Entitic mass] by Automa aurelia countOrdered By: Andrew Ponce on 10-28-2024 MCH (RBC) [Entitic mass] 33.7 pg Normal 24.7-34.3 [facility] Comment on above: Performed By: #### C BC, LIPASE, BMP, HEPATIC #### [address] MCHC Auto (RBC) [Mass/Vol]Or dered By: Andrew Ponce on 08-22-2025 MCHC (RBC) [Mass/Vol] 34.3 g/dL 32.0-35.0 [facility] MCV [Entitic volume] by Auto mated countOrdered By: Andrew Ponce on 10-28-2024 MCV (RBC) [Entitic vol] 98.2 fL Normal 80-100 [facility] Comment on above: Performed By: #### C BC, LIPASE, BMP, HEPATIC #### [facility] [address] [place] [address] Monocyte distribution width [Entitic volume] in Blood by AutomatedOrdered By: Andrew Ponce on 10-28-2024 Monocyte distribution width Auto (Bld) [Entitic vol] 19.51 % 0.00-20.00 [facility] Monocytes [#/volume] in Bloo d by Automated countOrdered By: Andrew Ponce on 10-28-2024 Monocytes (Bld) [#/Vol] 0.8 10*3/uL Normal 0.0-0.8 [facility] Comment on above: Performed By: #### C BC, LIPASE, BMP, HEPATIC #### [place] [address] [place] Monocytes/100 leukocytes in Blood by Automated countOrdered By: Andrew Ponce on 10-28-2024 Monocytes/100 WBC (Bld) 9.4 % Normal . [facility] Comment on above: Performed By: #### C BC, LIPASE, BMP, HEPATIC #### [address] Mucus [Presence] in Urine by AutomatedOrdered By: Andrew Ponce on 10-28-2024 Mucus Auto Ql (U) Rare [LPF] [facility] Neutrophils [#/volume] in Bl ood by Automated countOrdered By: Andrew Ponce on 10-28-2024 Neutrophils (Bld) [#/Vol] 5.1 10*3/uL Normal 1.8-7.7 [facility] Comment on above: Performed By: #### C BC, LIPASE, BMP, HEPATIC #### [facility] [address] [place] [address] [place] Neutrophils/100 leukocytes i n Blood by Automated countOrdered By: Andrew Ponce on 10-28-2024 Neutrophils/100 WBC (Bld) 59.3 % Normal . [facility] Comment on above: Performed By: #### C BC, LIPASE, BMP, HEPATIC #### [facility] [address] Nitrite Test strip Ql (U)Ord ered By: Andrew Ponce on 10-28-2024 Nitrite Ql (U) Negative Negative [facility] No Panel InformationOrdered By: Andrew Ponce on 10-28-2024 Pharmacy Creatinine Clearance (Chem 59.85 [facility] Nucleated erythrocytes [Pres ence] in Blood by Automated countOrdered By: Andrew Ponce on 10-28-2024 Nucleated RBC Auto Ql (Bld) 0.0 /100{WBC} 0-0.5 [facility] Platelet mean volume [Entiti c volume] in Blood by Automated countOrdered By: Andrew Ponce on 10-28-2024 Platelet mean volume (Bld) [Entitic vol] 8.0 fL Normal 6.3-10.7 [facility] Comment on above: Performed By: #### C BC, LIPASE, BMP, HEPATIC #### [facility] [address] Platelets [#/volume] in Bloo d by Automated countOrdered By: Andrew Ponce on 10-28-2024 Platelets (Bld) [#/Vol] 258 10*3/uL Normal 150-450 [facility] Comment on above: Performed By: #### C BC, LIPASE, BMP, HEPATIC #### [facility] [address] [place] [address] [place] Potassium [Moles/volume] in Serum or PlasmaOrdered By: Andrew Ponce on 10-28-2024 Potassium [Moles/Vol] 3.7 mmol/L Normal 3.5-5.1 [facility] Comment on above: Performed By: #### C BC, LIPASE, BMP, HEPATIC #### [facility] [address] Protein Test strip (U) [Mass /Vol]Ordered By: Andrew Ponce on 10-28-2024 Protein (U) [Mass/Vol] Negative Negative [facility] Protein [Mass/volume] in Ser um or PlasmaOrdered By: Andrew Ponce on 10-28-2024 Protein [Mass/Vol] 7.3 g/dL Normal 6.4-8.9 [facility] Comment on above: Performed By: #### C BC, LIPASE, BMP, HEPATIC #### [facility] [address] Serum globulin measurement b y calculation (mass/volume)Ordered By: Andrew Ponce on 10-28-2024 Globulin (S) [Mass/Vol] 2.8 g/dL [facility] Comment on above: Performed By: #### C BC, LIPASE, BMP, HEPATIC #### [address] Serum or plasma albumin/glob ulin mass ratioOrdered By: Andrew Ponce on 10-28-2024 Albumin/Globulin [Mass ratio] 1.6 {ratio} [facility] Comment on above: Performed By: #### C BC, LIPASE, BMP, HEPATIC #### [address] Serum or plasma anion gap de terminationOrdered By: Andrew Ponce on 10-28-2024 Anion gap [Moles/Vol] 8.3 mmol/L Normal 6.0-15.0 [facility] Comment on above: Performed By: #### C BC, LIPASE, BMP, HEPATIC #### [address] Serum or plasma non-glucuron idated bilirubin measurement (mass/volume)Ordered By: Andrew Ponce on 10-28-2024 Bilirubin.indirect [Mass/Vol] 0.3 mg/dL [facility] Sodium [Moles/volume] in Ser um or PlasmaOrdered By: Andrew Ponce on 10-28-2024 Sodium [Moles/Vol] 139 mmol/L Normal 136-145 [facility] Comment on above: Performed By: #### C BC, LIPASE, BMP, HEPATIC #### [address] Specific gravity Test strip (U) [Rel density]Ordered By: Andrew Ponce on 10-28-2024 Specific gravity (U) [Rel density] 1.017 1.001-1.03 0 [facility] Urea nitrogen [Mass/volume] in Serum or PlasmaOrdered By: Andrew Ponce on 10-28-2024 Urea nitrogen [Mass/Vol] 10 mg/dL Normal 7-25 [facility] Comment on above: Performed By: #### C BC, LIPASE, BMP, HEPATIC #### [facility] [address] Urobilinogen Test strip (U) [Mass/Vol]Ordered By: Andrew Ponce on 10-28-2024 Urobilinogen (U) [Mass/Vol] Normal mg/dL Normal [facility] pH of Urine by Test stripOrd ered By: Andrew Ponce on 10-28-2024 pH (U) 6.0 [pH] Normal 5.0-9.0 [facility] Comment on above: Order Comment: Name Collection Type:: Voided Performed By: #### C BC, LIPASE, BMP, HEPATIC #### [facility] [address] ED Note-Physicianon 10-26-19 ED Note-Physician ED [...] States that she does follow-up with the [facility] for GI follow-up. Review of [...] Zepeda In 3 days 10/27/2024 EDT [address] [facility], [address] [address]- [phone] Business (1) Additional Instructions: Follow-up with your GI doctor. If you do not have 1 you may follow-up with Dr. Zepeda. Raji JENSEN In 3 days 10/27/2024 EDT [address] [place] [address]- Business (1) Additional Instructions: Follow-up with your primary care doctor. You do not have 1 you may follow-up with Dr. Jensen. Patient Education Chronic Pancreatitis Attestation Patient seen and evaluated by the physician medical assistant prn. Attending physician was present in the emergency department and supervised care. This visit was performed by both the physician and an APC. I performed all aspects of the MDM as documented. This report was transcribed using voice recognition software. Every effort was made to ensure accuracy, however, inadvertently computerized flow floor attendant mistakes may be present. Appropriate healthcare PPE was used in evaluating this patient. The patient was placed i (more content not included)... Normal [facility] Comment on above: Result Comment: Elec tronically Signed By: Marco A Aguilar PA-C\.br\Date and Time Signed: 10/24/24 18:47 EDT\.br\Electronically Co-Signed By: Darrel Ferrer DO\.br\Date and Time Co-Signed: 10/25/24 07:01 EDT BMPon 10-24-2024 Anion gap [Moles/Vol] 9 mmol/L Normal 6-16 [facility] Comment on above: Performed By: #### 2 [id number] #### [facility] [address] [place] [address] BUN/Creat Ratio 10 No Units Normal 10-20 [facility] Comment on above: Performed By: #### 2 [id number] #### [facility] [address] [place] [address] Calcium [Mass/Vol] 9.9 mg/dL Normal 8.9-11.[address] [facility] Comment on above: Performed By: #### 2 [id number] #### [facility] [address] [place] [address] Chloride [Moles/Vol] 105 mmol/L Normal 101-111 [facility] Comment on above: Performed By: #### 2 [id number] #### [facility] [address] [place] [address] CO2 [Moles/Vol] 27 mmol/L Normal 21-31 [facility] Comment on above: Performed By: #### 2 [id number] #### [facility] [address] [place] [address] Creatinine [Mass/Vol] 0.8 mg/dL Normal 0.5-1.3 [facility] Comment on above: Performed By: #### 2 [id number] #### [facility] [address] [place] [address] Glucose [Mass/Vol] 96 mg/dL Normal 55-[address] [facility] Comment on above: Performed By: #### 2 [id number] #### [facility] [address] [place] [address] Potassium [Moles/Vol] 4.0 mmol/L Normal 3.5-5.3 [facility] Comment on above: Performed By: #### 2 [id number] #### [facility] [address] [place] [address] Sodium [Moles/Vol] 137 mmol/L Normal 135-[address] [facility] Comment on above: Performed By: #### 2 846481 #### [facility] [address] [place] [address] Urea nitrogen [Mass/Vol] 8 mg/dL Normal 5-[address] [facility] Comment on above: Performed By: #### 2 [id number] #### [facility] [address] [place] [address] CBC w/ Auto Diffon 5 Basophil Absolute 0.2 E9/L Normal 0.0-0.[address] [facility] Comment on above: Performed By: #### 2 990362 #### [facility] [address] [place] [address] Basophils/100 WBC (Bld) 1.6 % Normal 0.0-2.[address] [facility] Comment on above: Performed By: #### 2 871429 #### [facility] [address] [place] [address] Eos Absolute 0.2 E9/L Normal 0.0-0.[address] [facility] Comment on above: Performed By: #### 2 022802 #### [facility] [address] [place] [address] Eosinophils/100 WBC (Bld) 1.8 % Normal 0.0-8.[address] [facility] Comment on above: Performed By: #### 2 754991 #### [facility] [address] [place] [address] Erythrocyte distribution width (RBC) [Ratio] 13.4 % Normal 10.9-14.[address] [facility] Comment on above: Performed By: #### 2 060500 #### [facility] [address] [place] [address] Hematocrit (Bld) [Volume fraction] 40.1 % Normal 34.0-46.[address] [facility] Comment on above: Performed By: #### 2 812834 #### [facility] [address] [place] [address] Hemoglobin (Bld) [Mass/Vol] 14.0 g/dL Normal 12.0-16.[address] [facility] Comment on above: Performed By: #### 2 768367 #### [facility] [address] [place] [address] Lymph Absolute 2.8 E9/L Normal 1.0-4.[address] [facility] Comment on above: Performed By: #### 2 793949 #### [facility] [address] [place] [address] Lymphocytes/100 WBC (Bld) 28.5 % Normal 14.0-50.[address] [facility] Comment on above: Performed By: #### 2 471711 #### [facility] [address] [place] [address] MCH (RBC) [Entitic mass] 34.4 pg High 27.0-34.[address] [facility] Comment on above: Performed By: #### 2 250062 #### [facility] [address] [place] [address] MCHC (RBC) [Mass/Vol] 34.8 g/dL Normal 31.4-36.0 [facility] Comment on above: Performed By: #### 2 858226 #### [facility] [address] [place] [address] MCV (RBC) [Entitic vol] 98.7 fL Normal 80.0-100.[address] [facility] Comment on above: Performed By: #### 2 697236 #### [facility] [address] [place] [address] Dukes Absolute 0.8 E9/L Normal 0.2-1.0 [facility] Comment on above: Performed By: #### 2 090685 #### [facility] [address] [place] [address] Monocytes/100 WBC (Bld) 8.3 % Normal 4.0-14.[address] [facility] Comment on above: Performed By: #### 2 050317 #### [facility] [address] [place] [address] Neutro Absolute 5.9 E9/L Normal 2.0-7.5 [facility] Comment on above: Performed By: #### 2 099211 #### [facility] [address] [place] [address] Neutro Auto 59.8 % Normal 36.0-75.[address] [facility] Comment on above: Performed By: #### 2 334092 #### [facility] [address] [place] [address] Platelet 274.0 E9/L Normal 150.0-500. [address] [facility] Comment on above: Performed By: #### 2 647905 #### [facility] [address] [place] [address] Platelet mean volume (Bld) [Entitic vol] 8.1 fL Normal 6.4-10.[address] [facility] Comment on above: Performed By: #### 2 840027 #### [facility] [address] [place] [address] RBC 4.1 E12/L Low 4.3-5.[address] [facility] Comment on above: Performed By: #### 2 557487 #### [facility] [address] [place] [address] WBC 9.9 E9/L Normal 4.0-11.[address] [facility] Comment on above: Performed By: #### 2 353720 #### [facility] [address] [place] [address] ED Clinical Summaryon 2024 ED Clinical Summary ED Clinical Summary [address] [address] ED Clinical Summary Person Information Name: CHIOMA ARCINIEGA[place] Age: 54 Years : 1970 Sex: Female Language: Albanian PCP: NONE, XXXX Marital Status: Visit Id: [...] 10/24/2024 19:00:42 10/24/2024 19:00:42 10/24/2024 19:00:42 ADDRESS: [address] [place] [address] [id number] [facility] DOC NOTES: MEDICAL INFORMATION: Prescriptions Given: Medications to Continue with No Changes Other Medications promethazine (promethazine 25 mg Tab) 1 Tablets By Mouth 3 times a day. Refills: 0. PATIENT EDUCATION INFORMATION: Instructions: Chronic Pancreatitis Follow up: With: Address: When: Tiffanie Zepeda [address] [place] [phone] Business (1) In 3 days 10/27/2024 Comments: Follow-up with your GI doctor. If you do not have 1 you may follow-up with Dr. Zepeda. With: Address: When: Raji JENSEN [address] [place] [address] Business (1) In 3 days 10/27/2024 Comments: Follow-up with your primary care doctor. You do not have 1 you may follow-up with Dr. Jensen. DIAGNOSIS: Chronic pancreatitis Normal [facility] ED Patient Summaryon 025 ED Patient Summary ED Patient Summary [address] [address] Patient Discharge Instructions Person Information Name: CHIOMA ARCINIEGA Age: 54 Years Arrival Date: 10/24/2024 16:30:34 Discharge Diagnosis: Chronic pancreatitis Primary Care Physician: NONE, XXXX Provider Information Primary Provider: Darrel Ferrer DO Advanced Director Of Housing:Marco A Aguilar PA-C The exam and treatment you received in the Emergency Department were for an urgent problem and are not intended as complete care. It is important that you follow up with a doctor, nurse practitioner, or physician???s medical assistant prn for ongoing care. If your symptoms become [...] Instructions: With: Address: When: Tiffanie Zepeda [address] [place] [address], [facility] [address], [place] [phone] [employer] (1) In 3 days 10/27/2024 Comments: Follow-up with your GI doctor. If you do not have 1 you may follow-up with Dr. Zepeda. With: Address: When: Raji JENSEN [address] [place] [phone] [employer] (1) In 3 days 10/27/2024 Comments: Follow-up [...] opioids can be used to help relieve [id number] pain and are often prescribed following a [...] program o (more content not included)... Normal [facility] Hep Func Panelon 10-24-2024 Albumin [Mass/Vol] 4.3 g/dL Normal 3.3-5.[address] [facility] Comment on above: Performed By: #### 2 [id number] #### [facility] [address] [place] [address] Albumin/Globulin [Mass ratio] 1.8 {ratio} Normal 1.1-2.[address] [facility] Comment on above: Performed By: #### 2 [id number] #### [facility] [address] [place] [address] Alk Phos 125 Int._Unit/L High 21-98 [facility] Comment on above: Performed By: #### 2 996712 #### [facility] [address] [place] [address] ALT 9 Int._Unit/L Normal 6-46 [facility] Comment on above: Performed By: #### 2 276243 #### [facility] [address] [place] [address] AST 18 Int._Unit/L Normal 5-[address] [facility] Comment on above: Performed By: #### 2 140240 #### [facility] [address] [place] [address] Bili Direct 0.0 mg/dL Normal 0.0-0.[address] [facility] Comment on above: Performed By: #### 2 269105 #### [facility] [address] [place] [address] Bili Indirect 0.2 mg/dL Normal 0.1-0.9 [facility] Comment on above: Performed By: #### 2 736175 #### [facility] [address] [place] [address] Bili Total 0.2 mg/dL Normal 0.0-1.[address] [facility] Comment on above: Performed By: #### 2 089631 #### [facility] [address] [place] [address] Globulin (S) [Mass/Vol] 2.4 g/dL Normal 1.4-4.[address] [facility] Comment on above: Performed By: #### 2 560028 #### [facility] [address] [place] [address] Protein [Mass/Vol] 6.7 g/dL Normal 6.0-7.[address] [facility] Comment on above: Performed By: #### 2 050402 #### [facility] [address] [place] [address] Lipase Levelon 10-24-2024 Lipase Lvl 56 unit/L Normal -[address] [facility] Comment on above: Performed By: #### 2 979888 #### [facility] [address] [place] [address] UA with Cult Rflxon 10-25-19 25 Color (U) Colorless Abnormal Yellow [facility] Comment on above: Result Comment: Micr oscopic readings are only performed on those samples that meet specific criteria set forth by [facility]. Performed By: #### 4 [id number] #### [facility] [address] [place] [address] Glucose (U) [Mass/Vol] Negative Normal Negative [facility] Comment on above: Performed By: #### 4 [id number] #### [facility] [address] [place] [address] Ketones Ql (U) Negative Normal Negative [facility] Comment on above: Performed By: #### 4 [id number] #### [facility] [address] [place] [address] UA Blood Negative Normal Negative [facility] Comment on above: Performed By: #### 4 [id number] #### [facility] [address] [place] [address] UA Clarity Clear Normal Clear [facility] Comment on above: Performed By: #### 4 [id number] #### [facility] [address] [place] [address] UA Leuk Est Negative Normal Negative [facility] Comment on above: Performed By: #### 4 [id number] #### [facility] [address] [place] [address] UA Nitrite Negative Normal Negative [facility] Comment on above: Performed By: #### 4 [id number] #### [facility] [address] [place] [address] UA pH 5.5 Invalid Interpretation Code 5.0-9.[address] [facility] Comment on above: Performed By: #### 4 [id number] #### [facility] [address] [place] [address] UA Protein Negative Normal Negative [facility] Comment on above: Performed By: #### 4 [id number] #### [facility] [address] [place] [address] UA Spec Grav 1.006 Invalid Interpretation Code 1.005-1.[address] [facility] Comment on above: Performed By: #### 4 [id number] #### [facility] [address] [place] [address] UA Urobilinogen Negative Normal Negative [facility] Comment on above: Performed By: #### 4 [id number] #### [facility] [address] [place] [address] Urobilinogen (U) [Mass/Vol] Negative Normal Negative [facility] Comment on above: Performed By: #### 4 [id number] #### [facility] [address] [place] [address] UA Spec Desc Clean Catch Normal [facility] Comment on above: Performed By: #### 4 [id number] #### [facility] [address] [place] [address] eGFRon 10-24-2024 eGFR 87 mL/min/1.73 m2 Normal >=[address] [facility] Comment on above: Performed By: #### 1 [id number] #### [facility] [address] [place] [address] Alanine aminotransferase [En zymatic activity/volume] in Serum or PlasmaOrdered By: Diomedes Posadas on 10-19-2024 ALT [Catalytic activity/Vol] 9 U/L Normal 7-52 [facility] Comment on above: Performed By: #### C BC, LIPASE, BMP, HEPATIC #### [facility] [address] Albumin [Mass/volume] in Ser um or Plasma by Bromocresol green (BCG) dye binding methoOrdered By: Diomedes Posadas on 10-19-2024 Albumin BCG dye [Mass/Vol] 4.5 g/dL 3.5-5.7 [facility] Alkaline phosphatase [Enzyma tic activity/volume] in Serum or PlasmaOrdered By: Diomedes Posadas on 10-19-2024 ALP [Catalytic activity/Vol] 145 U/L High 34-104 [facility] Comment on above: Performed By: #### C BC, LIPASE, BMP, HEPATIC #### [address] Appearance of UrineOrdered B y: Diomedes Jjanand on 10-19-2024 Appearance (U) Clear Normal Clear [facility] Comment on above: Order Comment: Name Collection Type:: Voided Performed By: #### C BC, LIPASE, BMP, HEPATIC #### [address] Aspartate aminotransferase [ Enzymatic activity/volume] in Serum or PlasmaOrdered By: Diomedes Posadas on 10-19-2024 AST [Catalytic activity/Vol] 16 U/L Normal 13-39 [facility] Comment on above: Performed By: #### C BC, LIPASE, BMP, HEPATIC #### [facility] [address] Basic Metabolic Panelon 10-07 Creatinine Clr Calc Pharmacy 60.57 Normal [facility] Comment on above: Performed By: #### C BC, LIPASE, BMP, HEPATIC #### [address] GFR/1.73 sq M.predicted MDRD (S/P/Bld) [Vol rate/Area] mL/min/{1.73_m2} Normal [facility] Comment on above: Performed By: #### C BC, LIPASE, BMP, HEPATIC #### [address] Basophils [#/volume] in Bloo d by Automated countOrdered By: Diomedes Posadas on 10-19-2024 Basophils (Bld) [#/Vol] 0.1 10*3/uL Normal 0.0-0.2 [facility] Comment on above: Result Comment: PERF ORMED BY: [place] [id number] PATHOLOGIST COUNCILOR TARA BENSON M.D. Performed By: #### C BC, LIPASE, BMP, HEPATIC #### [address] Basophils/100 leukocytes in Blood by Automated countOrdered By: Diomedes Posadas on 10-19-2024 Basophils/100 WBC (Bld) 0.9 % Normal . [facility] Comment on above: Performed By: #### C BC, LIPASE, BMP, HEPATIC #### [address] Bilirubin Test strip Ql (U)O rdered By: Diomedes Posadas on 10-19-2024 Bilirubin Ql (U) Negative Negative [facility] Bilirubin.direct [Mass/volum e] in Serum or PlasmaOrdered By: Diomedes Posadas on 10-19-2024 Bilirubin.direct [Mass/Vol] 0.00 mg/dL Low 0.03-0.18 [facility] Comment on above: If the DBIL is less than 0.1, IBIL is not able to becalculated. Bilirubin.total [Mass/volume ] in Serum or PlasmaOrdered By: Diomedes Posadas on 10-19-2024 Bilirubin [Mass/Vol] 0.4 mg/dL Normal 0.3-1.0 [facility] Comment on above: Performed By: #### C BC, LIPASE, BMP, HEPATIC #### [address] [place] [address] [facility] [address] abdomen pelvis w conon CT abdomen pelvis w con [facility] Main [place] [address] [place] [id number] Scan Report Signed Patient: Chioma Arciniega MR#: [id number] : 1970 Acct:[id number] Age/Sex: 54 / F ADM Date: 10/19/24 Loc: ER Room: Type: [facility] ER Attending Dr: Copies to: Diomedes Posadas [...] Mendieta M.D. 10/19/2024 10:12 PM Dictation Location: [place] [address] Transcribed By: [facility] 10/19/242211 Dictated By: Cruzito Mendieta DO 10/19/242203 Signed By: 10/19/242211 Normal [facility] Calcium [Mass/volume] in Ser um or PlasmaOrdered By: Diomedes Posadas on 10-19-2024 Calcium [Mass/Vol] 9.8 mg/dL Normal 8.6-10.3 [facility] Comment on above: Performed By: #### C BC, LIPASE, BMP, HEPATIC #### [address] Carbon dioxide, total [Moles /volume] in Serum or PlasmaOrdered By: Diomedes Posadas on 10-19-2024 CO2 [Moles/Vol] 25.0 mmol/L Normal 21.0-31.0 [facility] Comment on above: Performed By: #### C BC, LIPASE, BMP, HEPATIC #### [address] Chloride [Moles/volume] in S erika or PlasmaOrdered By: Diomedes Posadas on 10-19-2024 Chloride [Moles/Vol] 106 mmol/L Normal 98-107 [facility] Comment on above: Performed By: #### C BC, LIPASE, BMP, HEPATIC #### [address] Color of Urine by AutoOrdere d By: Diomedes Posadas on 10-19-2024 Color (U) Colorless Normal Yellow [facility] Comment on above: Order Comment: Name Collection Type:: Voided Performed By: #### C BC, LIPASE, BMP, HEPATIC #### [address] Complete Blood Count Auto Di ffon 10-19-2024 Mean Corpuscular HGB Conc 33.7 g/dL Normal 32.0-35.0 [facility] Comment on above: Performed By: #### C BC, LIPASE, BMP, HEPATIC #### [place] [address] [place] Monocytes/100 WBC (Bld) 17.90 % Normal 0.00-20.00 [facility] Comment on above: Performed By: #### C BC, LIPASE, BMP, HEPATIC #### [address] NRBC% 0.0 /100{WBC} Normal 0-0.5 [facility] Comment on above: Performed By: #### C BC, LIPASE, BMP, HEPATIC #### [address] White Blood Count 11.2 [CFU]/mL Normal 3.8-11.6 [facility] Comment on above: Performed By: #### C BC, LIPASE, BMP, HEPATIC #### [address] Creatinine [Mass/volume] in Serum or PlasmaOrdered By: Diomedes Posadas on 10-19-2024 Creatinine [Mass/Vol] 0.83 mg/dL Normal 0.60-1.20 [facility] Comment on above: Performed By: #### C BC, LIPASE, BMP, HEPATIC #### [address] ECG 12 lead ECGon 10-19-2024 ECG 12 lead ECG [facility] Main [place] [address] [place] [address] Electrocardiograph Report Signed Patient: Chioma Arciniega MR#: [id number] : 1970 Acct:[id number] Age/Sex: 54 / F ADM Date: 10/19/24 Loc: ER Room: Type: [facility] ER Attending Dr: Ordering Provider: Diomedes [...] sinus rhythm Confirmed by Chi GARCIA DO ([id number]) on 10/20/2024 12:41:59 AM Referred By: Electronically Signed By: Chi GARCIA DO Transcribed By: MUS Signed By Chi Garcia DO 0 10/20/24 0042 Normal [facility] Eosinophils [#/volume] in Bl ood by Automated countOrdered By: Diomedes Posadas on 10-19-2024 Eosinophils (Bld) [#/Vol] 0.2 10*3/uL Normal 0.0-0.45 [facility] Comment on above: Performed By: #### C BC, LIPASE, BMP, HEPATIC #### [address] Eosinophils/100 leukocytes i n Blood by Automated countOrdered By: Diomedes Posadas on 10-19-2024 Eosinophils/100 WBC (Bld) 1.6 % Normal . [facility] Comment on above: Performed By: #### C BC, LIPASE, BMP, HEPATIC #### [address] Erythrocyte distribution wid th [Ratio] by Automated countOrdered By: Diomedes Posadas on 10-19-2024 Erythrocyte distribution width (RBC) [Ratio] 13.8 % Normal 11.9-15.3 [facility] Comment on above: Performed By: #### C BC, LIPASE, BMP, HEPATIC #### [address] Erythrocytes [#/volume] in B lood by Automated countOrdered By: Diomedes Posadas on 10-19-2024 RBC (Bld) [#/Vol] 4.37 10*6/uL Normal 3.60-5.00 [facility] Comment on above: Performed By: #### C BC, LIPASE, BMP, HEPATIC #### [address] Glucose [Mass/volume] in Ser um or PlasmaOrdered By: Diomedes Posadas on 10-19-2024 Glucose [Mass/Vol] 84 mg/dL Normal 70-100 [facility] Comment on above: ADA recommended refe rence rangeRandom Glucose Reference Range is dependent on time and content of last meal. Glucose of more than 200 mg/dL in a nonstressed, ambulatory subject supports the diagnosis of Diabetes Mellitus. Result Comment: [place] om Glucose Reference Range is dependent on time and content of last meal. Glucose of more than 200 mg/dL in a nonstressed, ambulatory subject supports the diagnosis of Diabetes Mellitus. ADA recommended reference range Performed By: #### C BC, LIPASE, BMP, HEPATIC #### [address] Glucose [Mass/volume] in Uri ne by Test stripOrdered By: Diomedes Posadas on 10-19-2024 Glucose Test strip (U) [Mass/Vol] Normal mg/dL Normal [facility] Hematocrit [Volume Fraction] of Blood by Automated countOrdered By: Diomedes Posadas on 10-19-2024 Hematocrit (Bld) [Volume fraction] 42.9 % Normal 34.0-46.4 [facility] Comment on above: Performed By: #### C BC, LIPASE, BMP, HEPATIC #### [address] Hemoglobin Test strip Ql (U) Ordered By: Diomedes Posadas on 10-19-2024 Hemoglobin Ql (U) Negative Negative [facility] Hemoglobin [Mass/volume] in BloodOrdered By: Diomedes Posadas on 10-19-2024 Hemoglobin (Bld) [Mass/Vol] 14.4 g/dL Normal 11.8-15.4 [facility] Comment on above: Performed By: #### C BC, LIPASE, BMP, HEPATIC #### [address] Hepatic Panelon 10-19-2024 Albumin [Mass/Vol] 4.5 g/dL Normal 3.5-5.7 [facility] Comment on above: Performed By: #### C BC, LIPASE, BMP, HEPATIC #### [address] Bilirubin,Indirect 0.4 mg/dL Normal [facility] Comment on above: Performed By: #### C BC, LIPASE, BMP, HEPATIC #### [address] Bilirubin.indirect [Mass/Vol] 0.00 mg/dL Low 0.03-0.18 [facility] Comment on above: Result Comment: If t he DBIL is less than 0.1, IBIL is not able to be calculated. Performed By: #### C BC, LIPASE, BMP, HEPATIC #### [facility] [address] Ketones [Presence] in Urine by Test stripOrdered By: Diomedes Posadas on 10-19-2024 Ketones Ql (U) Negative Normal Negative [facility] Comment on above: Order Comment: Name Collection Type:: Voided Performed By: #### C BC, LIPASE, BMP, HEPATIC #### [facility] [address] Leukocyte esterase [Presence ] in Urine by Test stripOrdered By: Diomedes Posadas on 10-19-2024 Leukocyte esterase Test strip Ql (U) Negative Normal Negative [facility] Comment on above: Order Comment: Name Collection Type:: Voided Performed By: #### C BC, LIPASE, BMP, HEPATIC #### [address] Leukocytes [#/volume] correc aurelia for nucleated erythrocytes in Blood by Automated counOrdered By: Diomedes Posadas on 10-19-2024 WBC corrected for nucl RBC Auto (Bld) [#/Vol] 11.2 10*3/uL 3.8-11.6 [facility] Leukocytes [#/volume] in Blo od by Automated countOrdered By: Diomedes Posadas on 10-19-2024 WBC (Bld) [#/Vol] 11.2 10*3/uL Normal 3.8-11.6 [facility] Comment on above: Performed By: #### C BC, LIPASE, BMP, HEPATIC #### [address] Lipase [Enzymatic activity/v olume] in Serum or PlasmaOrdered By: Diomedes Posadas on 10-19-2024 Lipase [Catalytic activity/Vol] 198.0 U/L High 11.0-82.0 [facility] Comment on above: Result Comment: PERF ORMED BY: [place] [id number] PATHOLOGIST COUNCILOR TARA BENSON M.D. Performed By: #### C BC, LIPASE, BMP, HEPATIC #### [address] [place] [address] [place] Lymphocytes [#/volume] in Bl ood by Automated countOrdered By: Diomedes Posadas on 10-19-2024 Lymphocytes (Bld) [#/Vol] 3.3 10*3/uL Normal 1.00-4.8 [facility] Comment on above: Performed By: #### C BC, LIPASE, BMP, HEPATIC #### [facility] [address] [place] [address] Lymphocytes/100 leukocytes i n Blood by Automated countOrdered By: Diomedes Posadas on 10-19-2024 Lymphocytes/100 WBC (Bld) 29.1 % Normal . [facility] Comment on above: Performed By: #### C BC, LIPASE, BMP, HEPATIC #### [address] MCH [Entitic mass] by Automa aurelia countOrdered By: Diomedes Posadas on 10-19-2024 MCH (RBC) [Entitic mass] 33.0 pg Normal 24.7-34.3 [facility] Comment on above: Performed By: #### C BC, LIPASE, BMP, HEPATIC #### [address] MCHC Auto (RBC) [Mass/Vol]Or dered By: Diomedes Posadas on 10-19-2024 MCHC (RBC) [Mass/Vol] 33.7 g/dL 32.0-35.0 [facility] MCV [Entitic volume] by Auto mated countOrdered By: Diomedes Posadas on 10-19-2024 MCV (RBC) [Entitic vol] 98.2 fL Normal 80-100 [facility] Comment on above: Performed By: #### C BC, LIPASE, BMP, HEPATIC #### [facility] [address] [place] [address] Monocyte distribution width [Entitic volume] in Blood by AutomatedOrdered By: Diomedes Posadas on 10-19-2024 Monocyte distribution width Auto (Bld) [Entitic vol] 17.90 % 0.00-20.00 [facility] Monocytes [#/volume] in Bloo d by Automated countOrdered By: Diomedes Posadas on 10-19-2024 Monocytes (Bld) [#/Vol] 1.0 10*3/uL High 0.0-0.8 [facility] Comment on above: Performed By: #### C BC, LIPASE, BMP, HEPATIC #### [facility] [address] [place] [address] [place] Monocytes/100 leukocytes in Blood by Automated countOrdered By: Diomedes Posadas on 10-19-2024 Monocytes/100 WBC (Bld) 8.6 % Normal . [facility] Comment on above: Performed By: #### C BC, LIPASE, BMP, HEPATIC #### [facility] [address] [place] [address] [place] Neutrophils [#/volume] in Bl ood by Automated countOrdered By: Diomedes Posadas on 10-19-2024 Neutrophils (Bld) [#/Vol] 6.7 10*3/uL Normal 1.8-7.7 [facility] Comment on above: Performed By: #### C BC, LIPASE, BMP, HEPATIC #### [facility] [address] [place] [address] [place] Neutrophils/100 leukocytes i n Blood by Automated countOrdered By: Diomedes Posadas on 10-19-2024 Neutrophils/100 WBC (Bld) 59.8 % Normal . [facility] Comment on above: Performed By: #### C BC, LIPASE, BMP, HEPATIC #### [facility] [address] [place] [address] [place] Nitrite Test strip Ql (U)Ord ered By: Diomedes Posadas on 10-19-2024 Nitrite Ql (U) Negative Negative [facility] No Panel InformationOrdered By: Diomedes Posadas on 10-19-2024 Estimated GFR (CKD-EPI) > 60.0 mL/Min [facility] Creatinine Clearance (Chem 60.57 [facility] Nucleated erythrocytes [Pres ence] in Blood by Automated countOrdered By: Diomedes Posadas on 10-19-2024 Nucleated RBC Auto Ql (Bld) 0.0 /100{WBC} 0-0.5 [facility] Platelet mean volume [Entiti c volume] in Blood by Automated countOrdered By: Diomedes Posadas on 10-19-2024 Platelet mean volume (Bld) [Entitic vol] 7.5 fL Normal 6.3-10.7 [facility] Comment on above: Performed By: #### C BC, LIPASE, BMP, HEPATIC #### [facility] [address] Platelets [#/volume] in Bloo d by Automated countOrdered By: Diomedes Posadas on 10-19-2024 Platelets (Bld) [#/Vol] 281 10*3/uL Normal 150-450 [facility] Comment on above: Performed By: #### C BC, LIPASE, BMP, HEPATIC #### [address] Potassium [Moles/volume] in Serum or PlasmaOrdered By: Diomedes Posadas on 10-19-2024 Potassium [Moles/Vol] 3.9 mmol/L Normal 3.5-5.1 [facility] Comment on above: Performed By: #### C BC, LIPASE, BMP, HEPATIC #### [address] Protein Test strip (U) [Mass /Vol]Ordered By: Diomedes Posadas on 10-19-2024 Protein (U) [Mass/Vol] Negative Negative [facility] Protein [Mass/volume] in Ser um or PlasmaOrdered By: Diomedes Posadas on 10-19-2024 Protein [Mass/Vol] 7.3 g/dL Normal 6.4-8.9 [facility] Comment on above: Performed By: #### C BC, LIPASE, BMP, HEPATIC #### [address] Serum globulin measurement b y calculation (mass/volume)Ordered By: Diomedes Posadas on 10-19-2024 Globulin (S) [Mass/Vol] 2.8 g/dL Normal [facility] Comment on above: Performed By: #### C BC, LIPASE, BMP, HEPATIC #### [address] [place] [address] [place] Serum or plasma albumin/glob ulin mass ratioOrdered By: Diomedes Posadas on 10-19-2024 Albumin/Globulin [Mass ratio] 1.6 {ratio} Normal [facility] Comment on above: Performed By: #### C BC, LIPASE, BMP, HEPATIC #### [address] Serum or plasma anion gap de terminationOrdered By: Diomedes Posadas on 10-19-2024 Anion gap [Moles/Vol] 11.9 mmol/L Normal 6.0-15.0 [facility] Comment on above: Performed By: #### C BC, LIPASE, BMP, HEPATIC #### [address] Serum or plasma non-glucuron idated bilirubin measurement (mass/volume)Ordered By: Diomedes Posadas on 10-19-2024 Bilirubin.indirect [Mass/Vol] 0.4 mg/dL [facility] Sodium [Moles/volume] in Ser um or PlasmaOrdered By: Diomedes Posadas on 10-19-2024 Sodium [Moles/Vol] 139 mmol/L Normal 136-145 [facility] Comment on above: Performed By: #### C BC, LIPASE, BMP, HEPATIC #### [address] Specific gravity Test strip (U) [Rel density]Ordered By: Diomedes Posadas on 10-19-2024 Specific gravity (U) [Rel density] 1.007 1.001-1.03 0 [facility] Urea nitrogen [Mass/volume] in Serum or PlasmaOrdered By: Diomedes Posadas on 10-19-2024 Urea nitrogen [Mass/Vol] 11 mg/dL Normal 7-25 [facility] Comment on above: Performed By: #### C BC, LIPASE, BMP, HEPATIC #### [address] Urinalysison 10-19-2024 Bilirubin,Urine Negative Normal Negative [facility] Comment on above: Order Comment: Name Collection Type:: Voided Performed By: #### C BC, LIPASE, BMP, HEPATIC #### [address] Glucose Ql (U) Normal Normal Normal [facility] Comment on above: Order Comment: Name Collection Type:: Voided Performed By: #### C BC, LIPASE, BMP, HEPATIC #### [address] Nitrite,Urine Negative Normal Negative [facility] Comment on above: Order Comment: Name Collection Type:: Voided Performed By: #### C BC, LIPASE, BMP, HEPATIC #### [address] Occult Blood,Urine Negative Normal Negative [facility] Comment on above: Order Comment: Name Collection Type:: Voided Result Comment: PERF ORMED BY: [place] [id number] PATHOLOGIST COUNCILOR TARA BENSON M.D. Performed By: #### C BC, LIPASE, BMP, HEPATIC #### [address] Protein,Urine Negative Normal Negative [facility] Comment on above: Order Comment: Name Collection Type:: Voided Performed By: #### C BC, LIPASE, BMP, HEPATIC #### [address] Specificy [place],Urine 1.007 Normal 1.001-1.03 0 [facility] Comment on above: Order Comment: Name Collection Type:: Voided Performed By: #### C BC, LIPASE, BMP, HEPATIC #### [address] Urobilinogen,Urine Normal Normal Normal [facility] Comment on above: Order Comment: Name Collection Type:: Voided Performed By: #### C BC, LIPASE, BMP, HEPATIC #### [address] Urobilinogen Test strip (U) [Mass/Vol]Ordered By: Diomedes Posadas on 10-19-2024 Urobilinogen (U) [Mass/Vol] Normal mg/dL Normal [facility] pH of Urine by Test stripOrd ered By: Diomedes Posadas on 10-19-2024 pH (U) 5.5 [pH] Normal 5.0-9.0 [facility] Comment on above: Order Comment: Name Collection Type:: Voided Performed By: #### C BC, LIPASE, BMP, HEPATIC #### [facility] [address] [place] [id number] [facility] ED Note-Physicianon 10-16-19 ED Note-Physician ED [...] Patient seen and evaluated by the physician medical assistant prn. Attending physician was present in the emergency department and supervised care. This visit was performed by both the physician and an APC. I performed all aspects of the MDM as documented. This report was transcribed using voice recognition software. Every effort was made to ensure accuracy, however, inadvertently computerized flow floor attendant mistakes may be present. Appropriate healthcare PPE [...] promethazine 2 (more content not included)... Normal [facility] Comment on above: Result Comment: Elec tronically Signed By: Jeff MARSH, Marco A Shaver\.br\Date and Time Signed: 10/09/24 16:16 EDT\.br\Electronically Co-Signed By: Ish Stokes MD\.br\Date and Time Co-Signed: 10/15/24 08:10 EDT APTTon 10-11-2024 aPTT Coag (Bld) [Time] 28 s Normal 26-37 Pr [facility] [place] Comment on above: Performed By: #### 8 9579-7, 29374-6, 5643-2, 40303-7, LIVR, 3040-3, CBCA, BMP #### [facility] ([id number]) [address] [place] [address], [place] [address] BASIC METABOLIC PANELon 08-0 Anion gap [Moles/Vol] 5 mmol/L Normal 5-15 [facility] Comment on above: Performed By: #### 8 9579-7, 24146-4, 5643-2, 36898-3, LIVR, 3040-3, CBCA, BMP #### [facility] ([id number]) [address] [place] [address]51 Calcium [Mass/Vol] 9.3 mg/dL Normal 8.5-10.5 [facility] Comment on above: Performed By: #### 8 9579-7, 55125-6, 5643-2, 52737-7, LIVR, 3040-3, CBCA, BMP #### [facility] ([id number]) [address] [place] [address] 69582 Chloride [Moles/Vol] 106 mmol/L Normal 98-109 [facility] Comment on above: Performed By: #### 8 9579-7, 74726-5, 5643-2, 42920-9, LIVR, 3040-3, CBCA, BMP #### [facility] ([id number]) [address] [place] [address] 58060 CO2 [Moles/Vol] 25 mmol/L Normal 22-32 [facility] Comment on above: Performed By: #### 8 9579-7, 06302-9, 5643-2, 53739-2, LIVR, 3040-3, CBCA, BMP #### [facility] ([id number]) [address] [place] [address] 79635 Creatinine [Mass/Vol] 0.80 mg/dL Normal 0.40-1.00 [facility] Comment on above: Result Comment: METH OD TRACEABLE TO IDMS STANDARD Performed By: #### 8 9579-7, 02159-1, 5643-2, 11189-5, LIVR, 3040-3, CBCA, BMP #### [facility] ([id number]) [address] [place] [address] 28658 GFR/1.73 sq M.predicted among non-blacks MDRD (S/P/Bld) [Vol rate/Area] 87 mL/min/{1.73_m2} Normal >=60 [facility] Comment on above: Result Comment: eGFR not reported due to non-numeric value for Creatinine. Reported eGFR is based on the CKD-EPI 202 equation that does not use a race coefficient. Performed By: #### 8 9579-7, 21323-7, 5643-2, 15641-5, LIVR, 3040-3, CBCA, BMP #### [facility] ([id number]) [address] [place] [address] 66816 Glucose [Mass/Vol] 98 mg/dL Normal 65-99 [facility] Comment on above: Performed By: #### 8 9579-7, 22771-4, 5643-2, 84125-4, LIVR, 3040-3, CBCA, BMP #### [facility] ([id number]) [address] [place] [address] 79812 Potassium [Moles/Vol] 3.9 mmol/L Normal 3.5-5.0 [facility] Comment on above: Performed By: #### 8 9579-7, 19679-5, 5643-2, 91284-2, LIVR, 3040-3, CBCA, BMP #### [facility] ([id number]) [address] [place] [address] 22610 Sodium [Moles/Vol] 136 mmol/L Normal 134-146 [facility] Comment on above: Performed By: #### 8 9579-7, 25818-3, 5643-2, 97188-1, LIVR, 3040-3, CBCA, BMP #### [facility] ([id number]) [address] [place] [address] 22372 Urea nitrogen [Mass/Vol] 10 mg/dL Normal 5-23 [facility] Comment on above: Performed By: #### 8 9579-7, 45029-9, 5643-2, 58678-7, LIVR, 3040-3, CBCA, BMP #### [facility] ([id number]) [address] [place] [address] 88666 CBC WITH AUTO DIFFERENTIALon 10-11-2024 BASOPHILS ABSOLUTE COUNT (10*3/UL) BY AUTOMATED COUNT 0.1 10*3/uL Normal 0.0-0.2 [facility] Comment on above: Performed By: #### 8 9579-7, 84944-2, 5643-2, 00503-8, LIVR, 3040-3, CBCA, BMP #### [facility] ([id number]) [address] [place] [address] 32727 BASOPHILS RELATIVE PERCENT BY AUTOMATED COUNT 0.9 % Normal [facility] Comment on above: Performed By: #### 8 9579-7, 12284-6, 5643-2, 60138-7, LIVR, 3040-3, CBCA, BMP #### [facility] ([id number]) [address] [place] [address] 88799 CELLAVISION DIFFERENTIAL TYPE AUTOMATED DIFFERENTIAL Normal [facility] Comment on above: Performed By: #### 8 9579-7, 94937-0, 5643-2, 76016-7, LIVR, 3040-3, CBCA, BMP #### [facility] ([id number]) [address] [place] [address] 72635 Eosinophils (Bld) [#/Vol] 0.2 10*3/uL Normal 0.0-0.4 [facility] Comment on above: Performed By: #### 8 9579-7, 45751-3, 5643-2, 07164-4, LIVR, 3040-3, CBCA, BMP #### [facility] ([id number]) [address] [place] [address] 69043 EOSINOPHILS RELATIVE PERCENT BY AUTOMATED COUNT 2.8 % Normal [facility] Comment on above: Performed By: #### 8 9579-7, 86083-8, 5643-2, 02756-2, LIVR, 3040-3, CBCA, BMP #### [facility] ([id number]) [address] [place] [address] 57537 Erythrocyte distribution width (RBC) [Ratio] 13.6 % Normal 11.5-15 [facility] Comment on above: Performed By: #### 8 9579-7, 51678-4, 5643-2, 72789-7, LIVR, 3040-3, CBCA, BMP #### [facility] ([id number]) [address] [place] [address] 60944 Hematocrit (Bld) [Volume fraction] 40.5 % Normal 35-47 [facility] Comment on above: Performed By: #### 8 9579-7, 61187-0, 5643-2, 68731-1, LIVR, 3040-3, CBCA, BMP #### [facility] ([id number]) [address] [place] [address] 14757 Hemoglobin (Bld) [Mass/Vol] 13.9 g/dL Normal 11.7-15.5 [facility] Comment on above: Performed By: #### 8 9579-7, 47437-9, 5643-2, 93128-3, LIVR, 3040-3, CBCA, BMP #### [facility] ([id number]) [address] [place] [address] 30292 LYMPHOCYTES ABSOLUTE COUNT (10*3/UL) BY AUTOMATED COUNT 2.1 10*3/uL Normal 1.0-3.5 [facility] Comment on above: Performed By: #### 8 9579-7, 45017-2, 5643-2, 74110-4, LIVR, 3040-3, CBCA, BMP #### [facility] ([id number]) [address] [place] [address] 26464 LYMPHOCYTES RELATIVE PERCENT BY AUTOMATED COUNT 23.7 % Normal [facility] Comment on above: Performed By: #### 8 9579-7, 80419-1, 5643-2, 12797-0, LIVR, 3040-3, CBCA, BMP #### [facility] ([id number]) [address] [place] [address] 78235 MCH (RBC) [Entitic mass] 33.2 pg Normal 27-34 [facility] Comment on above: Performed By: #### 8 9579-7, 98986-5, 5643-2, 20249-3, LIVR, 3040-3, CBCA, BMP #### [facility] ([id number]) [address] [place] [address] 73533 MCHC (RBC) [Mass/Vol] 34.3 g/dL Normal 32-36 [facility] Comment on above: Performed By: #### 8 9579-7, 51471-5, 5643-2, 99180-5, LIVR, 3040-3, CBCA, BMP #### [facility] ([id number]) [address] [place] [address] 29341 MCV (RBC) [Entitic vol] 97 fL Normal 80-100 [facility] Comment on above: Performed By: #### 8 9579-7, 30995-4, 5643-2, 44248-9, LIVR, 3040-3, CBCA, BMP #### [facility] ([id number]) [address] [place] [address] 71315 MONOCYTES ABSOLUTE COUNT (10*3/UL) BY AUTOMATED COUNT 0.8 10*3/uL Normal 0.0-0.9 [facility] Comment on above: Performed By: #### 8 9579-7, 13922-7, 5643-2, 82962-2, LIVR, 3040-3, CBCA, BMP #### [facility] ([id number]) [address] [place] [address] 00162 MONOCYTES RELATIVE PERCENT BY AUTOMATED COUNT 8.9 % Normal [facility] Comment on above: Performed By: #### 8 9579-7, 74142-5, 5643-2, 04161-2, LIVR, 3040-3, CBCA, BMP #### [facility] ([id number]) [address] [place] [address] 19850 NEUTROPHILS ABSOLUTE COUNT BY AUTOMATED COUNT 5.6 10*3/uL Normal 1.5-6.6 [facility] Comment on above: Performed By: #### 8 9579-7, 50654-0, 5643-2, 85880-5, LIVR, 3040-3, CBCA, BMP #### [facility] ([id number]) [address] [place] [address] 40751 NEUTROPHILS RELATIVE PERCENT BY AUTOMATED COUNT 63.7 % Normal [facility] Comment on above: Performed By: #### 8 9579-7, 83775-2, 5643-2, 13847-9, LIVR, 3040-3, CBCA, BMP #### [facility] ([id number]) [address] [place] [address] 14215 Platelet mean volume (Bld) [Entitic vol] 7.7 fL Normal 7-12 [facility] Comment on above: Performed By: #### 8 9579-7, 12393-0, 5643-2, 39438-1, LIVR, 3040-3, CBCA, BMP #### [facility] ([id number]) [address] [place] [address] 88707 Platelets (Bld) [#/Vol] 244 10*3/uL Normal 150-450 [facility] Comment on above: Performed By: #### 8 9579-7, 60871-2, 5643-2, 62958-6, LIVR, 3040-3, CBCA, BMP #### [facility] ([id number]) [address] [place] [address] 28113 RBC COUNT 4.19 X10E12/L Normal 3.8-5.2 [facility] Comment on above: Performed By: #### 8 9579-7, 16079-6, 5643-2, 52672-9, LIVR, 3040-3, CBCA, BMP #### [facility] ([id number]) [address] [place] [address] 60502 WBC (Bld) [#/Vol] 8.8 10*3/uL Normal 4-11 [facility] Comment on above: Performed By: #### 8 9579-7, 12998-2, 5643-2, 05937-8, LIVR, 3040-3, CBCA, BMP #### [facility] ([id number]) [address] [place] [address] 53555 ETHANOLon 10-11-2024 Ethanol [Mass/Vol] mg/dL Normal <=0.080 [facility] Comment on above: Result Comment: This report is intended for use in clinical monitoring or management of patients. Performed By: #### 8 9579-7, 33063-8, 5643-2, 70649-3, LIVR, 3040-3, CBCA, BMP #### [facility] ([id number]) [address] [place] [id number] LIPASEon 10-11-2024 Lipase [Catalytic activity/Vol] 49 U/L High 17-40 [facility] Comment on above: Performed By: #### 8 9579-7, 32926-4, 5643-2, 62596-7, LIVR, 3040-3, CBCA, BMP #### [facility] ([id number]) [address] [place] [address] 70581 LIVER PANELon 10-11-2024 Albumin [Mass/Vol] 3.9 g/dL Normal 3.2-5.3 [facility] Comment on above: Performed By: #### 8 9579-7, 34708-6, 5643-2, 82670-0, LIVR, 3040-3, CBCA, BMP #### [facility] ([id number]) [address] [place] [address] 79826 ALP [Catalytic activity/Vol] 111 U/L Normal 39-130 [facility] Comment on above: Performed By: #### 8 9579-7, 81451-3, 5643-2, 84973-0, LIVR, 3040-3, CBCA, BMP #### [facility] ([id number]) [address] [place] [address] 07960 ALT [Catalytic activity/Vol] 12 U/L Normal <=31 [facility] Comment on above: Performed By: #### 8 9579-7, 04926-1, 5643-2, 47074-3, LIVR, 3040-3, CBCA, BMP #### [facility] ([id number]) [address] [place] [address] 71473 AST [Catalytic activity/Vol] 22 U/L Normal <=41 [facility] Comment on above: Performed By: #### 8 9579-7, 05813-4, 5643-2, 27051-6, LIVR, 3040-3, CBCA, BMP #### [facility] ([id number]) [address] [place] [address] 26968 Bilirubin [Mass/Vol] 0.2 mg/dL Low 0.3-1.2 [facility] Comment on above: Performed By: #### 8 9579-7, 42779-6, 5643-2, 88381-3, LIVR, 3040-3, CBCA, BMP #### [facility] ([id number]) [address] [place] [address] 48639 Bilirubin.indirect [Mass/Vol] 0.1 mg/dL Normal <=0.4 [facility] Comment on above: Performed By: #### 8 9579-7, 60452-1, 5643-2, 92463-5, LIVR, 3040-3, CBCA, BMP #### [facility] ([id number]) [address] [place] [address] 87487 Protein [Mass/Vol] 6.8 g/dL Normal 6.0-8.0 [facility] Comment on above: Performed By: #### 8 9579-7, 69145-8, 5643-2, 29462-3, LIVR, 3040-3, CBCA, BMP #### [facility] ([id number]) [address] [place] [address] 06739 MAGNESIUMon 10-11-2024 Magnesium [Mass/Vol] 2.3 mg/dL Normal 1.8-2.6 [facility] Comment on above: Performed By: #### 8 9579-7, 60018-5, 5643-2, 98879-4, LIVR, 3040-3, CBCA, BMP #### [facility] ([id number]) [address] [place] [address] 83209 PROTIME AND INRon 10-11-2024 INR 0.9 Normal 0.9-1.2 [facility] Comment on above: Performed By: #### 8 9579-7, 50197-0, 5643-2, 92385-4, LIVR, 3040-3, CBCA, BMP #### [facility] ([id number]) [address] [place] [address] 71083 PT Coag (PPP) [Time] 10.3 s Normal 9.8-13.2 [facility] Comment on above: Performed By: #### 8 9579-7, 26911-0, 5643-2, 36674-7, LIVR, 3040-3, CBCA, BMP #### [facility] ([id number]) [address] [place] [address] Abdomen/Pelvis w/ Contras ton 10-10-2024 CT [...] MD Transcribed by: ELMER Technologist: ANTONI Jones [facility] BMPon 10-09-2024 Anion gap [Moles/Vol] 12 mmol/L Normal 6-16 [facility] Comment on above: Performed By: #### 2 860270 #### [facility] [address] [place] [address] BUN/Creat Ratio 11 No Units Normal 10-20 [facility] Comment on above: Performed By: #### 2 676684 #### [facility] [address] [place] [address] Calcium [Mass/Vol] 10.1 mg/dL Normal 8.9-11.[address] [facility] Comment on above: Performed By: #### 2 640824 #### [facility] [address] [place] [address] Chloride [Moles/Vol] 107 mmol/L Normal 101-111 [facility] Comment on above: Performed By: #### 2 732855 #### [facility] [address] [place] [address] CO2 [Moles/Vol] 25 mmol/L Normal 21-31 [facility] Comment on above: Performed By: #### 2 998856 #### [facility] [address] [place] [address] Creatinine [Mass/Vol] 0.8 mg/dL Normal 0.5-1.3 [facility] Comment on above: Performed By: #### 2 017093 #### [facility] [address] [place] [address] Glucose [Mass/Vol] 87 mg/dL Normal 55-[address] [facility] Comment on above: Performed By: #### 2 625902 #### [facility] [address] [place] [address] Potassium [Moles/Vol] 4.2 mmol/L Normal 3.5-5.3 [facility] Comment on above: Performed By: #### 2 271373 #### [facility] [address] [place] [address] Sodium [Moles/Vol] 140 mmol/L Normal 135-[address] [facility] Comment on above: Performed By: #### 2 243425 #### [facility] [address] [place] [address] Urea nitrogen [Mass/Vol] 9 mg/dL Normal 5-[address] [facility] Comment on above: Performed By: #### 2 412102 #### [facility] [address] [place] [address] CBC w/ Auto Diffon 5 Basophil Absolute 0.1 E9/L Normal 0.0-0.[address] [facility] Comment on above: Performed By: #### 2 087568 #### [facility] [address] [place] [address] Basophils/100 WBC (Bld) 0.9 % Normal 0.0-2.[address] [facility] Comment on above: Performed By: #### 2 177482 #### [facility] [address] [place] [address] Eos Absolute 0.2 E9/L Normal 0.0-0.[address] [facility] Comment on above: Performed By: #### 2 582974 #### [facility] [address] [place] [address] Eosinophils/100 WBC (Bld) 2.8 % Normal 0.0-8.[address] [facility] Comment on above: Performed By: #### 2 742680 #### [facility] [address] [place] [address] Erythrocyte distribution width (RBC) [Ratio] 13.7 % Normal 10.9-14.[address] [facility] Comment on above: Performed By: #### 2 193412 #### [facility] [address] [place] [address] Hematocrit (Bld) [Volume fraction] 44.7 % Normal 34.0-46.[address] [facility] Comment on above: Performed By: #### 2 781750 #### [facility] [address] [place] [address] Hemoglobin (Bld) [Mass/Vol] 15.3 g/dL Normal 12.0-16.[address] [facility] Comment on above: Performed By: #### 2 829362 #### [facility] [address] [place] [address] Lymph Absolute 2.4 E9/L Normal 1.0-4.[address] [facility] Comment on above: Performed By: #### 2 685869 #### [facility] [address] [place] [address] Lymphocytes/100 WBC (Bld) 31.5 % Normal 14.0-50.[address] [facility] Comment on above: Performed By: #### 2 139732 #### [facility] [address] [place] [address] MCH (RBC) [Entitic mass] 33.3 pg Normal 27.0-34.[address] [facility] Comment on above: Performed By: #### 2 389257 #### [facility] [address] [place] [address] MCHC (RBC) [Mass/Vol] 34.3 g/dL Normal 31.4-36.0 [facility] Comment on above: Performed By: #### 2 955823 #### [facility] [address] [place] [address] MCV (RBC) [Entitic vol] 97.0 fL Normal 80.0-100.[address] [facility] Comment on above: Performed By: #### 2 559269 #### [facility] [address] [place] [address] Dukes Absolute 0.7 E9/L Normal 0.2-1.0 [facility] Comment on above: Performed By: #### 2 303181 #### [facility] [address] [place] [address] Monocytes/100 WBC (Bld) 9.2 % Normal 4.0-14.[address] [facility] Comment on above: Performed By: #### 2 411554 #### [facility] [address] [place] [address] Neutro Absolute 4.3 E9/L Normal 2.0-7.5 [facility] Comment on above: Performed By: #### 2 903350 #### [facility] [address] [place] [address] Neutro Auto 55.6 % Normal 36.0-75.[address] [facility] Comment on above: Performed By: #### 2 473190 #### [facility] [address] [place] [address] Platelet 255.0 E9/L Normal 150.0-500. [address] [facility] Comment on above: Performed By: #### 2 807088 #### [facility] [address] [place] [address] Platelet mean volume (Bld) [Entitic vol] 7.7 fL Normal 6.4-10.[address] [facility] Comment on above: Performed By: #### 2 462866 #### [facility] [address] [place] [address] RBC 4.6 E12/L Normal 4.3-5.[address] [facility] Comment on above: Performed By: #### 2 919423 #### [facility] [address] [place] [address] WBC 7.7 E9/L Normal 4.0-11.[address] [facility] Comment on above: Performed By: #### 2 792469 #### [facility] [address] [place] [address] ED Clinical Summaryon 2024 ED Clinical Summary ED Clinical Summary [address] [address] ED Clinical Summary Person Information Name: CHIOMA ARCINIEGA/Shelbi Age: 54 Years : 1970 Sex: Female Language: Albanian PCP: NONE, XXXX Marital Status: Visit Id: [...] 10/09/2024 17:59:13 10/09/2024 17:59:13 10/09/2024 17:59:13 ADDRESS: [address] [place] [address] [id number] [facility] DOC NOTES: MEDICAL INFORMATION: Prescriptions Given: Medications to Continue with No Changes Other Medications promethazine (promethazine 25 mg Tab) 1 Tablets By Mouth 3 times a day. Refills: 0. PATIENT EDUCATION INFORMATION: Instructions: Chronic Pancreatitis Follow up: With: Address: When: [facility] [phone] In 3 days 10/12/2024 DIAGNOSIS: 1:Abdominal pain; Chronic pancreatitis Normal [facility] ED Patient Summaryon 025 ED Patient Summary ED Patient Summary [place] [id number] Patient Discharge Instructions Person Information Name: CHIOMA ARCINIEGA Age: 54 Years Arrival Date: 10/09/2024 13:21:49 Discharge Diagnosis: 1:Abdominal pain; Chronic pancreatitis Primary Care Physician: NONE, XXXX Provider Information Primary Provider: Ish Stokes MD Advanced Director Of Housing:Marco A Aguilar PA-C The exam and treatment you received in the Emergency Department were for an urgent problem and are not intended as complete care. It is important that you follow up with a doctor, nurse practitioner, or physician???s medical assistant prn for ongoing care. If your symptoms become worse or you do not improve as expected and you are unable to reach your usual health care provider, you should return to the Emergency Department. We are available 24 hours a day. CHIOMA ARCINIEGA has been given the following list of patient education materials, prescriptions and follow-up instructions: Follow-up Instructions: With: Address: When: [facility] [phone] In 3 days 10/12/2024 In the event that this physician does not participate in your insurance network, please consult with your insurance company to find a nearby participating provider. Patient Education Materials: Chronic Pancreatitis A MESSAGE TO ALL PATIENTS REGARDING OPIOIDS PRESCRIPTION OPIOIDS: WHAT YOU NEED TO KNOW Prescription opioids can be used to help relieve choffjen-vp-thlvss pain and are often prescribed following a [...] be struggling with addiction, tell your health career services assistant and ask for guidance or call [facility] (more content not included)... Normal [facility] Hep Func Panelon 10-09-2024 Albumin [Mass/Vol] 4.5 g/dL Normal 3.3-5.[address] [facility] Comment on above: Performed By: #### 2 [id number] #### [facility] [address] [place] [address] Albumin/Globulin [Mass ratio] 1.6 {ratio} Normal 1.1-2.[address] [facility] Comment on above: Performed By: #### 2 232085 #### [facility] [address] [place] [address] Alk Phos 114 Int._Unit/L High 21-98 [facility] Comment on above: Performed By: #### 2 922626 #### [facility] [address] [place] [address] ALT 9 Int._Unit/L Normal 6-46 [facility] Comment on above: Performed By: #### 2 055996 #### [facility] [address] [place] [address] AST 18 Int._Unit/L Normal 5-[address] [facility] Comment on above: Performed By: #### 2 510735 #### [facility] [address] [place] [address] Bili Direct 0.0 mg/dL Normal 0.0-0.[address] [facility] Comment on above: Performed By: #### 2 097598 #### [facility] [address] [place] [address] Bili Indirect 0.3 mg/dL Normal 0.1-0.9 [facility] Comment on above: Performed By: #### 2 731425 #### [facility] [address] [place] [address] Bili Total 0.3 mg/dL Normal 0.0-1.[address] [facility] Comment on above: Performed By: #### 2 289999 #### [facility] [address] [place] [address] Globulin (S) [Mass/Vol] 2.8 g/dL Normal 1.4-4.[address] [facility] Comment on above: Performed By: #### 2 890929 #### [facility] [address] [place] [address] Protein [Mass/Vol] 7.3 g/dL Normal 6.0-7.[address] [facility] Comment on above: Performed By: #### 2 667983 #### [facility] [address] [place] [address] Lipase Levelon 10-09-2024 Lipase Lvl 98 unit/L High 13-[address] [facility] Comment on above: Performed By: #### 2 136338 #### [facility] [address] [place] [address] UA with Cult Rflxon 10-10-19 25 Color (U) Colorless Abnormal Yellow [facility] Comment on above: Result Comment: Micr oscopic readings are only performed on those samples that meet specific criteria set forth by [facility]. Performed By: #### 4 [id number] #### [facility] [address] [place] [address] Glucose (U) [Mass/Vol] Negative Normal Negative [facility] Comment on above: Performed By: #### 4 [id number] #### [facility] [address] [place] [address] Ketones Ql (U) Negative Normal Negative [facility] Comment on above: Performed By: #### 4 [id number] #### [facility] [address] [place] [address] UA Blood Negative Normal Negative [facility] Comment on above: Performed By: #### 4 [id number] #### [facility] [address] [place] [address] UA Clarity Clear Normal Clear [facility] Comment on above: Performed By: #### 4 [id number] #### [facility] [address] [place] [address] UA Leuk Est Negative Normal Negative [facility] Comment on above: Performed By: #### 4 [id number] #### [facility] [address] [place] [address] UA Nitrite Negative Normal Negative [facility] Comment on above: Performed By: #### 4 [id number] #### [facility] [address] [place] [address] UA pH 5.5 Invalid Interpretation Code 5.0-9.[address] [facility] Comment on above: Performed By: #### 4 [id number] #### [facility] [address] [place] [address] UA Protein Negative Normal Negative [facility] Comment on above: Performed By: #### 4 [id number] #### [facility] [address] [place] [address] UA Spec Grav >1.050 Invalid Interpretation Code 1.005-1.[address] [facility] Comment on above: Performed By: #### 4 [id number] #### [facility] [address] [place] [address] UA Urobilinogen Negative Normal Negative [facility] Comment on above: Performed By: #### 4 [id number] #### [facility] [address] [place] [address] Urobilinogen (U) [Mass/Vol] Negative Normal Negative [facility] Comment on above: Performed By: #### 4 [id number] #### [facility] [address] [place] [address] UA Spec Desc Clean Catch Normal [facility] Comment on above: Performed By: #### 4 [id number] #### [facility] [address] [place] [address] eGFRon 10-09-2024 eGFR 87 mL/min/1.73 m2 Normal >=[address] [facility] Comment on above: Performed By: #### 1 [id number] #### [facility] [address] [place] [address] BMPon 10-03-2024 Anion gap [Moles/Vol] 10 mmol/L Normal 6-16 [facility] Comment on above: Performed By: #### 2 556779 #### [facility] [address] [place] [address] BUN/Creat Ratio 11 No Units Normal 10-20 [facility] Comment on above: Performed By: #### 2 588379 #### [facility] [address] [place] [address] Calcium [Mass/Vol] 9.9 mg/dL Normal 8.9-11.[address] [facility] Comment on above: Performed By: #### 2 384586 #### [facility] [address] [place] [address] Chloride [Moles/Vol] 107 mmol/L Normal 101-111 [facility] Comment on above: Performed By: #### 2 015014 #### [facility] [address] [place] [address] CO2 [Moles/Vol] 25 mmol/L Normal 21-31 [facility] Comment on above: Performed By: #### 2 276459 #### [facility] [address] [place] [address] Creatinine [Mass/Vol] 0.8 mg/dL Normal 0.5-1.3 [facility] Comment on above: Performed By: #### 2 863524 #### [facility] [address] [place] [address] Glucose [Mass/Vol] 112 mg/dL Normal 55-[address] [facility] Comment on above: Performed By: #### 2 053699 #### [facility] [address] [place] [address] Potassium [Moles/Vol] 3.6 mmol/L Normal 3.5-5.3 [facility] Comment on above: Performed By: #### 2 509431 #### [facility] [address] [place] [address] Sodium [Moles/Vol] 138 mmol/L Normal 135-[address] [facility] Comment on above: Performed By: #### 2 130324 #### [facility] [address] [place] [address] Urea nitrogen [Mass/Vol] 9 mg/dL Normal 5-[address] [facility] Comment on above: Performed By: #### 2 145311 #### [facility] [address] [place] [address] CBC w/ Auto Diffon 5 Basophil Absolute 0.1 E9/L Normal 0.0-0.[address] [facility] Comment on above: Performed By: #### 2 289132 #### [facility] [address] [place] [address] Basophils/100 WBC (Bld) 1.1 % Normal 0.0-2.[address] [facility] Comment on above: Performed By: #### 2 738459 #### [facility] [address] [place] [address] Eos Absolute 0.1 E9/L Normal 0.0-0.[address] [facility] Comment on above: Performed By: #### 2 512304 #### [facility] [address] [place] [address] Eosinophils/100 WBC (Bld) 1.4 % Normal 0.0-8.[address] [facility] Comment on above: Performed By: #### 2 909535 #### [facility] [address] [place] [address] Erythrocyte distribution width (RBC) [Ratio] 13.5 % Normal 10.9-14.[address] [facility] Comment on above: Performed By: #### 2 351560 #### [facility] [address] [place] [address] Hematocrit (Bld) [Volume fraction] 42.5 % Normal 34.0-46.[address] [facility] Comment on above: Performed By: #### 2 774333 #### [facility] [address] [place] [address] Hemoglobin (Bld) [Mass/Vol] 14.3 g/dL Normal 12.0-16.[address] [facility] Comment on above: Performed By: #### 2 224839 #### [facility] [address] [place] [address] Lymph Absolute 2.8 E9/L Normal 1.0-4.[address] [facility] Comment on above: Performed By: #### 2 943904 #### [facility] [address] [place] [address] Lymphocytes/100 WBC (Bld) 27.2 % Normal 14.0-50.[address] [facility] Comment on above: Performed By: #### 2 316999 #### [facility] [address] [place] [address] MCH (RBC) [Entitic mass] 32.6 pg Normal 27.0-34.[address] [facility] Comment on above: Performed By: #### 2 567965 #### [facility] [address] [place] [address] MCHC (RBC) [Mass/Vol] 33.7 g/dL Normal 31.4-36.0 [facility] Comment on above: Performed By: #### 2 465139 #### [facility] [address] [place] [address] MCV (RBC) [Entitic vol] 96.8 fL Normal 80.0-100.[address] [facility] Comment on above: Performed By: #### 2 917830 #### [facility] [address] [place] [address] Dukes Absolute 0.9 E9/L Normal 0.2-1.0 [facility] Comment on above: Performed By: #### 2 859359 #### [facility] [address] [place] [address] Monocytes/100 WBC (Bld) 8.9 % Normal 4.0-14.[address] [facility] Comment on above: Performed By: #### 2 907939 #### [facility] [address] [place] [address] Neutro Absolute 6.3 E9/L Normal 2.0-7.5 [facility] Comment on above: Performed By: #### 2 943667 #### [facility] [address] [place] [address] Neutro Auto 61.4 % Normal 36.0-75.[address] [facility] Comment on above: Performed By: #### 2 558097 #### [facility] [address] [place] [address] Platelet 296.0 E9/L Normal 150.0-500. [address] [facility] Comment on above: Performed By: #### 2 825247 #### [facility] [address] [place] [address] Platelet mean volume (Bld) [Entitic vol] 7.9 fL Normal 6.4-10.[address] [facility] Comment on above: Performed By: #### 2 973783 #### [facility] [address] [place] [address] RBC 4.4 E12/L Normal 4.3-5.[address] [facility] Comment on above: Performed By: #### 2 941300 #### [facility] [address] [place] [address] WBC 10.3 E9/L Normal 4.0-11.[address] [facility] Comment on above: Performed By: #### 2 308138 #### [facility] [address] [place] [address] ED Clinical Summaryon 2024 ED Clinical Summary ED Clinical Summary [address] [address] ED Clinical Summary Person Information Name: CHIOMA ARCINIEGA/[place] Age: 54 Years : 1970 Sex: Female Language: Albanian PCP: NONE, XXXX Marital Status: Visit Id: [...] 10/03/2024 18:49:22 10/03/2024 18:49:22 10/03/2024 18:49:22 ADDRESS: [address] [place] [address] [id number] [facility] DOC NOTES: MEDICAL INFORMATION: Prescriptions Given: New Medications Printed Prescriptions promethazine (promethazine 25 mg Tab) 1 Tablets By Mouth 3 times a day. Refills: 0. PATIENT EDUCATION INFORMATION: Instructions: Chronic Pancreatitis Follow up: With: Address: When: XXXX [facility] [place] In 3 days 10/06/2024 Comments: follow up with your GI physician DIAGNOSIS: Chronic pancreatitis Normal [facility] ED Note-Physicianon 10-04-19 25 ED Note-Physician [...] relief. Follows with GI out of the [place] area Review of Systems A 10 point [...] made to ensure accuracy, however, inadvertently computerized flow floor attendant mistakes may be present. Appropriate healthcare PPE [...] (10/03/24 1 (more content not included)... Normal [facility] Comment on above: Result Comment: Elec tronically Signed By: Levar Jara PA-C\.br\Date and Time Signed: 10/03/24 18:38 EDT\.br\Electronically Co-Signed By: Darrel Ferrer DO\.br\Date and Time Co-Signed: 10/03/24 18:48 EDT ED Patient Summaryon 025 ED Patient Summary ED Patient Summary [place] [id number] Patient Discharge Instructions Person Information Name: CHIOMA ARCINIEGA Age: 54 Years Arrival Date: 10/03/2024 17:23:23 Discharge Diagnosis: Chronic pancreatitis Primary Care Physician: LIANE, XXXX Provider Information Primary Provider: Darrel Ferrer DO Advanced Director Of Housing:Levar Jara PA-C The exam and treatment you received in the Emergency Department were for an urgent problem and are not intended as complete care. It is important that you follow up with a doctor, nurse practitioner, or physician???s medical assistant prn for ongoing care. If your symptoms become [...] opioids can be used to help relieve ixgdsiyx-qz-tnhenz pain and are often prescribed following a [...] be struggling with addiction, tell your health career services assistant and ask for guidance or call (more content not included)... Normal [facility] Extra Blueon 10-03-2024 Tube Collected Plasma Yes Invalid Interpretation Code [facility] Comment on above: Performed By: #### 1 [id number] #### [facility] [address] [place] [address] Hep Func Panelon 10-03-2024 Albumin [Mass/Vol] 4.5 g/dL Normal 3.3-5.[address] [facility] Comment on above: Performed By: #### 2 990763 #### [facility] [address] [place] [address] Albumin/Globulin [Mass ratio] 1.8 {ratio} Normal 1.1-2.[address] [facility] Comment on above: Performed By: #### 2 [id number] #### [facility] [address] [place] [address] Alk Phos 109 Int._Unit/L High 21-98 [facility] Comment on above: Performed By: #### 2 [id number] #### [facility] [address] [place] [address] ALT 9 Int._Unit/L Normal 6-46 [facility] Comment on above: Performed By: #### 2 [id number] #### [facility] [address] [place] [address] AST 16 Int._Unit/L Normal 5-[address] [facility] Comment on above: Performed By: #### 2 [id number] #### [facility] [address] [place] [address] Bili Direct 0.0 mg/dL Normal 0.0-0.[address] [facility] Comment on above: Performed By: #### 2 [id number] #### [facility] [address] [place] [address] Bili Indirect 0.3 mg/dL Normal 0.1-0.9 [facility] Comment on above: Performed By: #### 2 [id number] #### [facility] [address] [place] [address] Bili Total 0.3 mg/dL Normal 0.0-1.[address] [facility] Comment on above: Performed By: #### 2 [id number] #### [facility] [address] [place] [address] Globulin (S) [Mass/Vol] 2.5 g/dL Normal 1.4-4.[address] [facility] Comment on above: Performed By: #### 2 [id number] #### [facility] [address] [place] [address] Protein [Mass/Vol] 7.0 g/dL Normal 6.0-7.[address] [facility] Comment on above: Performed By: #### 2 [id number] #### [facility] [address] [place] [address] Lipase Levelon 10-03-2024 Lipase Lvl 199 unit/L High 13-[address] [facility] Comment on above: Performed By: #### 2 [id number] #### [facility] [address] [place] [address] eGFRon 10-03-2024 eGFR 87 mL/min/1.73 m2 Normal >=[address] [facility] Comment on above: Performed By: #### 1 [id number] #### [facility] [address] [place] [address] CBC with Auto Differentialon 09-27-2024 Basophils (Bld) [#/Vol] 0.08 10*3/uL [facility] Basophils/100 WBC (Bld) 1 % 0 - 2 % [facility] Eosinophils (Bld) [#/Vol] 0.08 10*3/uL [facility] Eosinophils/100 WBC (Bld) 1 % 1 - 4 % [facility] Erythrocyte distribution width (RBC) [Ratio] 13 % 11.8 - 14.4 % [facility] Hematocrit (Bld) [Volume fraction] 45.2 % 36.3 - 47.1 % [facility] Hemoglobin (Bld) [Mass/Vol] 15.5 g/dL High 11.9 - 15.1 g/dL [facility] Immature granulocytes (Bld) [#/Vol] 0 10*3/uL [facility] Immature granulocytes/100 WBC (Bld) 0 % 0 [facility] Interpretation and review of laboratory results Abnormal [facility] Lymphocytes/100 WBC (Bld) 26 % 24 - 43 % [facility] Lymphocytes/100 WBC (Bld) 2.13 % [facility] MCH (RBC) [Entitic mass] 33.2 pg 25.2 - 33.5 pg [facility] MCHC (RBC) [Mass/Vol] 34.3 g/dL 28.4 - 34.8 g/dL [facility] MCV (RBC) [Entitic vol] 96.8 fL 82.6 - 102.9 fL [facility] Monocytes/100 WBC (Bld) 9 % 3 - 12 % [facility] Monocytes/100 WBC (Bld) 0.74 % [facility] Morphology Syed (Bld) [Interp] Normal [facility] Neutrophils/100 WBC (Bld) 63 % 36 - 65 % [facility] Nucleated RBC/100 WBC (Bld) [Ratio] 0 % 0.0 per 100 WBC [facility] Platelet, Fluorescence 159 [address] [facility] Platelets (Bld) [#/Vol] See Reflexed IPF Result [facility] Platelets reticulated/100 platelets Auto (Bld) 2.4 % 1.1 - 10.3 % [facility] RBC (Bld) [#/Vol] 4.67 10*6/uL 3.95 - 5.11 m/uL [facility] Segmented neutrophils/100 WBC (Bld) 5.17 % [facility] WBC other (Bld) [#/Vol] 8.2 [facility] CBC with Diffon 09-27-2024 Abs. Basophil 0.08 k/uL Normal 0.0-0.[address] [facility] Comment on above: Performed By: #### L IP, CDP, CP #### [address] [place] [id number] [employer] Lead: Ion Jasso MD Abs.Imm.Granulocyte 0.00 k/uL Normal 0.00-0.30 [facility] Comment on above: Performed By: #### L IP, CDP, CP #### [address] [place], [place] [address] [employer] Lead: Ion Jasso MD Abs.Neutrophil (Seg) 5.17 k/uL Normal 1.50-8.10 [facility] Comment on above: Performed By: #### L IP, CDP, CP #### [address] [place], [place] [address] [employer] Lead: Ion Jasso MD Basophils/100 WBC (Bld) 1 % Normal 0-2 [facility] Comment on above: Performed By: #### L IP, CDP, CP #### [facility] [address] [place] [address] Dr. [place], [place] [address] [employer] Lead: Ion Jasso MD Eosinophils (Bld) [#/Vol] 0.08 10*3/uL Normal 0.00-0.44 [facility] Comment on above: Performed By: #### L IP, CDP, CP #### [facility] [address] [place], [facility]83 [employer] Lead: Ion Jasso MD Eosinophils/100 WBC (Bld) 1 % Normal 1-4 [facility] Comment on above: Performed By: #### L IP, CDP, CP #### [facility] [address] [place], [facility]83 [employer] Lead: Ion Jasso MD Immature granulocytes/100 WBC (Bld) 0 % Normal 0 [facility] Comment on above: Performed By: #### L IP, CDP, CP #### [address] [place], [place] [address] [employer] Lead: Ion Jasso MD Lymphocytes (Bld) [#/Vol] 2.13 10*3/uL Normal 1.10-3.70 [facility] Comment on above: Performed By: #### L IP, CDP, CP #### [address] [place], [facility]83 [employer] Lead: Ion Jasso MD Lymphocytes/100 WBC (Bld) 26 % Normal 24-43 [facility] Comment on above: Performed By: #### L IP, CDP, CP #### [address] [place], [facility]83 [employer] Lead: Ion Jasso MD Monocytes (Bld) [#/Vol] 0.74 10*3/uL Normal 0.10-1.20 [facility] Comment on above: Performed By: #### L IP, CDP, CP #### [address] [place], [facility]83 [employer] Lead: Ion Jasso MD Monocytes/100 WBC (Bld) 9 % Normal 3-12 [facility] Comment on above: Performed By: #### L IP, CDP, CP #### [address] [place] [address] [employer] Lead: Ion Jasso MD Morphology Syed (Bld) [Interp] Normal Normal [facility] Comment on above: Performed By: #### L IP, CDP, CP #### [facility] [address] [place], [place] [id number] [employer] Lead: Ion Jasso MD Neutrophil (Seg) 63 % Normal 36-65 [facility] Comment on above: Performed By: #### L IP, CDP, CP #### [address] [place], [place] [address] [employer] Lead: Ion Jasso MD Platelet, Fluoresc. 159 k/uL Normal 138-453 [facility] Comment on above: Performed By: #### L IP, CDP, CP #### [address] [place], [place] [address] [employer] Lead: Ion Jasso MD PLT, Immature Fract. 2.4 % Normal 1.1-10.3 [facility] Comment on above: Performed By: #### L IP, CDP, CP #### [address] [place], [facility]83 [employer] Lead: Ion Jasso MD Erythrocyte distribution width (RBC) [Ratio] 13.0 % Normal 11.8-14.4 [facility] Comment on above: Performed By: #### L IP, CDP, CP #### [address] [place], [place] [address] [employer] Lead: Ion Jasso MD Hematocrit (Bld) [Volume fraction] 45.2 % Normal 36.3-47.1 [facility] Comment on above: Performed By: #### L IP, CDP, CP #### [address] [place], [facility]83 [employer] Lead: Ion Jasso MD Hemoglobin (Bld) [Mass/Vol] 15.5 g/dL High 11.9-15.1 [facility] Comment on above: Performed By: #### L IP, CDP, CP #### [address] [place], [facility]83 [employer] Lead: Ion Jasso MD MCH (RBC) [Entitic mass] 33.2 pg Normal 25.2-33.5 [facility] Comment on above: Performed By: #### L IP CDP, CP #### [facility] [address] [place] [address] Dr. Michel [facility]83 [employer] Lead: Ion Jasso MD MCHC (RBC) [Mass/Vol] 34.3 g/dL Normal 28.4-34.8 [facility] Comment on above: Performed By: #### L IP CDP, CP #### [address] [place], [place] [address] [employer] Lead: Ion Jasso MD MCV (RBC) [Entitic vol] 96.8 fL Normal 82.6-102.9 [facility] Comment on above: Performed By: #### L WALTER ROONEY, CP #### [address] [place], [facility]83 [employer] Lead: Ion Jasso MD NRBC Automated 0.0 per 100 WBC Normal 0.0 [facility] Comment on above: Performed By: #### L WALTER ROONEY, CP #### [address] [place], [facility]83 [employer] Lead: Ion Jasso MD Platelet Count See Reflexed IPF Result Normal 138-453 [facility] Comment on above: Performed By: #### L IP CDP, CP #### [address] [place], [facility]83 [employer] Lead: Ion Jasso MD RBC (Bld) [#/Vol] 4.67 10*6/uL Normal 3.95-5.11 [facility] Comment on above: Performed By: #### L TORIBIO CDP, CP #### [facility] [address] [place] [address] Dr. [place], [facility]83 [employer] Lead: Ion Jasso MD WBC (Bld) [#/Vol] 8.2 10*3/uL Normal 3.5-11.3 [facility] Comment on above: Performed By: #### L IP, CDP, CP #### [facility] [address] [place] [address] Dr. [place], [place] [id number] [employer]: Ion Jasso MD Comp Metabolic Profon 2024 Albumin [Mass/Vol] 4.6 g/dL Normal 3.5-5.2 [facility] Comment on above: Performed By: #### L IP, CDP, CP #### [address] [place], [place] [id number] [employer]: Ion Jasso MD Albumin/Glob Ratio 1.6 Normal 1.0-2.5 [facility] Comment on above: Performed By: #### L IP, CDP, CP #### [facility] [address] [place] [address] [place] [address] [employer] Lead: Ion Jasso MD Alkaline Phos 145 U/L High 35-[address] [facility] Comment on above: Performed By: #### L IP, CDP, CP #### [address] [place], [place] [id number] [employer] Lead: Ion Jasso MD ALT [Catalytic activity/Vol] 12 U/L Normal 10-35 [facility] Comment on above: Performed By: #### L IP, CDP, CP #### [facility] [address] [place] [address] Dr. [place], [place] [id number] [employer] Lead: Ion Jasso MD Anion gap [Moles/Vol] 15 mmol/L Normal 9-16 [facility] Comment on above: Performed By: #### L IP, CDP, CP #### [address] [place], [place] [id number] [employer] Lead: Ion Jasso MD AST [Catalytic activity/Vol] 24 U/L Normal 10-35 [facility] Comment on above: Performed By: #### L IP, CDP, CP #### [facility] [address] [place], [place] [id number] [employer] Lead: Ion Jasso MD Bilirubin [Mass/Vol] 0.3 mg/dL Normal 0.00-1.20 [facility] Comment on above: Performed By: #### L IP, CDP, CP #### [facility] [address] [place], [facility]83 [employer] Lead: Ion Jasso MD BUN/CRE Ratio 10 Normal 9-[address] [facility] Comment on above: Performed By: #### L IP, CDP, CP #### [address] [place], [place] [id number] [employer] Lead: Ion Jasso MD Calcium [Mass/Vol] 10.1 mg/dL Normal 8.6-10.4 [facility] Comment on above: Performed By: #### L IP, CDP, CP #### [facility] [address] [place] [address] Dr. [place], [place] [id number] [employer]: Ion Jasso MD Chloride [Moles/Vol] 103 mmol/L Normal 98-107 [facility] Comment on above: Performed By: #### L IP, CDP, CP #### [facility] [address] [place] [address] Dr. [place], [facility]83 [employer] Lead: Ion Jasso MD CO2 [Moles/Vol] 21 mmol/L Normal 20-31 [facility] Comment on above: Performed By: #### L IP, CDP, CP #### [facility] [address] [place], [place] [id number] [employer] Lead: Ion Jasso MD Creatinine [Mass/Vol] 0.8 mg/dL Normal 0.50-0.90 [facility] Comment on above: Performed By: #### L IP, CDP, CP #### [facility] [address] [place] [address] [place] [address] [employer] Lead: Ion Jasso MD GFR/1.73 sq M.predicted among non-blacks MDRD (S/P/Bld) [Vol rate/Area] mL/min/{1.73_m2} Normal >60 [facility] Comment on above: Result Comment: These [...] By: #### L WALTER ROONEY, CP #### [address] [place] [address] [employer] Lead: Ion Jasso MD Glucose [Mass/Vol] 91 mg/dL Normal 74-99 [facility] Comment on above: Performed By: #### L WALTER ROONEY, CP #### [address] [place] [address] [employer] Lead: Ion Jasso MD Potassium [Moles/Vol] 4.2 mmol/L Normal 3.7-5.3 [facility] Comment on above: Result Comment: Spec imen hemolysis has exceeded the interference as defined by Joycelyn. Value may be falsely increased. Suggest recollection if clinically indicated. Performed By: #### L WALTER ROONEY, CP #### [facility] [address] [place] [address] [place] [address] [employer] Lead: Ion Jasso MD Protein [Mass/Vol] 7.5 g/dL Normal 6.6-8.7 [facility] Comment on above: Performed By: #### L TORIBIO CDP, CP #### [address] [place] [address] [employer] Lead: Ion Jasso MD Sodium [Moles/Vol] 139 mmol/L Normal 136-145 [facility] Comment on above: Performed By: #### L IP, CDP, CP #### [facility] [address] [place] [address] [employer] Lead: Ion Jasso MD Urea nitrogen [Mass/Vol] 8 mg/dL Normal 6-20 [facility] Comment on above: Performed By: #### L IP, CDP, CP #### [facility] [address] [place] [address] [employer] Lead: Ion Jasso MD Comprehensive Metabolic Pane [facility] 09-27-2024 Albumin [Mass/Vol] 4.6 g/dL 3.5 - 5.2 g/dL [facility] Albumin/Globulin [Mass ratio] 1.6 {ratio} 1.0 - 2.5 [facility] ALP [Catalytic activity/Vol] 145 U/L High 35 - 104 U/L [facility] ALT [Catalytic activity/Vol] 12 U/L 10 - 35 U/L [facility] Anion gap [Moles/Vol] 15 mmol/L 9 - 16 mmol/L [facility] AST [Catalytic activity/Vol] 24 U/L 10 - 35 U/L [facility] Bilirubin [Mass/Vol] 0.3 mg/dL 0.00 - 1.20 mg/dL [facility] Calcium [Mass/Vol] 10.1 mg/dL 8.6 - 10. 4 mg/dL [facility] Chloride [Moles/Vol] 103 mmol/L 98 - 10 7 mmol/L [facility] CO2 [Moles/Vol] 21 mmol/L 20 - 31 mmol/L [facility] Creatinine [Mass/Vol] 0.8 mg/dL 0.50 - 0.90 mg/dL [facility] Est, Glom Filt Rate - PINF [facility] Comment on above: These results [...] [Mass/Vol] 91 mg/dL 74 - 99 mg/dL [facility] Interpretation and review of laboratory results Abnormal [facility] Potassium [Moles/Vol] 4.2 mmol/L 3.7 - 5.3 mmol/L [facility] Comment on above: Specimen hemolysis h as exceeded the interference as defined by Joycelyn. Value may be falsely increased. Suggest recollection if clinically indicated. Protein [Mass/Vol] 7.5 g/dL 6.6 - 8.7 g/dL [facility] Sodium [Moles/Vol] 139 mmol/L 136 - 145 mmol/L [facility] Urea nitrogen [Mass/Vol] 8 mg/dL 6 - 20 mg/dL [facility] Urea nitrogen/Creatinine [Mass ratio] 10 mg/mg 9 - 20 [facility] Lactic Acidon 09-27-2024 Lactate (BldV) [Moles/Vol] 1.0 mmol/L 0.5 - 2.2 mmol/L [facility] Lactate [Moles/Vol] 1.0 mmol/L Normal 0.5-2.2 [facility] Comment on above: Performed By: #### L WALTER ROONEY, CP #### [facility] [address] [place] [address] [employer] Lead: Ion Jasso MD Lipaseon 09-27-2024 Lipase [Catalytic activity/Vol] 48 U/L 13 - 60 U/L [facility] Lipase [Catalytic activity/Vol] 48 U/L Normal 13-60 [facility] Comment on above: Performed By: #### L WALTER ROONEY, CP #### [facility] [address] [place] [address] [employer] Lead: Ion Jasso MD No Panel Informationon 09-27 [facility] CBC with Auto Differentialon 09-20-2024 Basophils (Bld) [#/Vol] 0.06 10*3/uL [facility] Basophils/100 WBC (Bld) 1 % 0 - 2 % [facility] Eosinophils (Bld) [#/Vol] 0.17 10*3/uL [facility] Eosinophils/100 WBC (Bld) 2 % 1 - 4 % [facility] Erythrocyte distribution width (RBC) [Ratio] 13.1 % 11.8 - 14.4 % [facility] Hematocrit (Bld) [Volume fraction] 42 % 36.3 - 47.1 % [facility] Hemoglobin (Bld) [Mass/Vol] 14.4 g/dL 11.9 - 15.1 g/dL [facility] Immature granulocytes (Bld) [#/Vol] 0.03 10*3/uL [facility] Immature granulocytes/100 WBC (Bld) 0 % 0 [facility] Lymphocytes/100 WBC (Bld) 28 % 24 - 43 % [facility] Lymphocytes/100 WBC (Bld) 2.98 % [facility] MCH (RBC) [Entitic mass] 33.3 pg 25.2 - 33.5 pg [facility] MCHC (RBC) [Mass/Vol] 34.3 g/dL 28.4 - 34.8 g/dL [facility] MCV (RBC) [Entitic vol] 97.2 fL 82.6 - 102.9 fL [facility] Monocytes/100 WBC (Bld) 9 % 3 - 12 % [facility] Monocytes/100 WBC (Bld) 0.96 % [facility] Neutrophils/100 WBC (Bld) 60 % 36 - 65 % [facility] Nucleated RBC/100 WBC (Bld) [Ratio] 0 % 0.0 per 100 WBC [facility] Platelet mean volume (Bld) [Entitic vol] 9.7 fL 8.1 - 13.5 fL [facility] Platelets (Bld) [#/Vol] 258 10*3/uL [facility] RBC (Bld) [#/Vol] 4.32 10*6/uL 3.95 - 5.11 m/uL [facility] Segmented neutrophils/100 WBC (Bld) 6.53 % [facility] WBC other (Bld) [#/Vol] 10.7 [facility] CBC with Diffon 09-20-2024 Abs. Basophil 0.06 k/uL Normal 0.00-0.[address] [facility] Comment on above: Performed By: #### L IP, CP, CDP #### [facility] [address] [place] [address] Dr. [place], [place] [address] [employer] Lead: Ion Jasso MD Abs.Imm.Granulocyte 0.03 k/uL Normal 0.00-0.30 [facility] Comment on above: Performed By: #### L IP, CP, CDP #### [address] [place] [address] [employer] Lead: Ion Jasso MD Abs.Neutrophil (Seg) 6.53 k/uL Normal 1.50-8.10 [facility] Comment on above: Performed By: #### L IP, CP, CDP #### [address] [place] [address] [employer] Lead: Ion Jasso MD Basophils/100 WBC (Bld) 1 % Normal 0-2 [facility] Comment on above: Performed By: #### L IP, CP, CDP #### [address] [place], [place] [address] [employer] Lead: Ion Jasso MD Eosinophils (Bld) [#/Vol] 0.17 10*3/uL Normal 0.00-0.44 [facility] Comment on above: Performed By: #### L IP, CP, CDP #### [address] [place] [id number] [employer] Lead: Ion Jasso MD Eosinophils/100 WBC (Bld) 2 % Normal 1-4 [facility] Comment on above: Performed By: #### L IP, CP, CDP #### [address] [place] [id number] [employer] Lead: Ion Jasso MD Erythrocyte distribution width (RBC) [Ratio] 13.1 % Normal 11.8-14.4 [facility] Comment on above: Performed By: #### L IP, CP, CDP #### [address] [place], [place] [id number] [employer] Lead: Ion Jasso MD Hematocrit (Bld) [Volume fraction] 42.0 % Normal 36.3-47.1 [facility] Comment on above: Performed By: #### L IP, CP, CDP #### [address] [place] [phone] [employer] Lead: Ion Jasso MD Hemoglobin (Bld) [Mass/Vol] 14.4 g/dL Normal 11.9-15.1 [facility] Comment on above: Performed By: #### L IP, CP, CDP #### [address] [place] [id number] [employer] Lead: Ion Jasso MD Immature granulocytes/100 WBC (Bld) 0 % Normal 0 [facility] Comment on above: Performed By: #### L IP, CP, CDP #### [address] [place] [id number] [employer] Lead: Ion Jasso MD Lymphocytes (Bld) [#/Vol] 2.98 10*3/uL Normal 1.10-3.70 [facility] Comment on above: Performed By: #### L IP, CP, CDP #### [address] [place], [facility]83 [employer] Lead: Ion Jasso MD Lymphocytes/100 WBC (Bld) 28 % Normal 24-43 [facility] Comment on above: Performed By: #### L IP, CP, CDP #### [address] [place], [facility]83 [employer] Lead: Ion Jasso MD MCH (RBC) [Entitic mass] 33.3 pg Normal 25.2-33.5 [facility] Comment on above: Performed By: #### L IP, CP, CDP #### [address] [place] [address] [employer] Lead: Ion Jasso MD MCHC (RBC) [Mass/Vol] 34.3 g/dL Normal 28.4-34.8 [facility] Comment on above: Performed By: #### L IP, CP, CDP #### [address] [place] [address] [employer] Lead: Ion Jasso MD MCV (RBC) [Entitic vol] 97.2 fL Normal 82.6-102.9 [facility] Comment on above: Performed By: #### L IP, CP, CDP #### [address] [place], [facility]83 [employer] Lead: Ion Jasso MD Monocytes (Bld) [#/Vol] 0.96 10*3/uL Normal 0.10-1.20 [facility] Comment on above: Performed By: #### L IP, CP, CDP #### [address] [place], [place] [id number] [employer] Lead: Ion Jasso MD Monocytes/100 WBC (Bld) 9 % Normal 3-12 [facility] Comment on above: Performed By: #### L IP, CP, CDP #### [address] [place], [place] [phone] [employer] Lead: Ion Jasso MD Neutrophil (Seg) 60 % Normal 36-65 [facility] Comment on above: Performed By: #### L IP, CP, CDP #### [facility] [address] [place] [address] [employer] Lead: Ion Jasso MD NRBC Automated 0.0 per 100 WBC Normal 0.0 [facility] Comment on above: Performed By: #### L IP, CP, CDP #### [address] [place], [facility]83 [employer] Lead: Ion Jasso MD Platelet mean volume (Bld) [Entitic vol] 9.7 fL Normal 8.1-13.5 [facility] Comment on above: Performed By: #### L IP, CP, CDP #### [address] [place], [facility]83 [employer] Lead: Ion Jasso MD Platelets (Bld) [#/Vol] 258 10*3/uL Normal 138-453 [facility] Comment on above: Performed By: #### L IP, CP, CDP #### [address] [place], [facility]83 [employer] Lead: Ion Jasso MD RBC (Bld) [#/Vol] 4.32 10*6/uL Normal 3.95-5.11 [facility] Comment on above: Performed By: #### L IP, CP, CDP #### [address] [place] [address] [employer] Lead: Ion Jasso MD WBC (Bld) [#/Vol] 10.7 10*3/uL Normal 3.5-11.3 [facility] Comment on above: Performed By: #### L IP, CP, CDP #### [address] [place], [place] [id number] Quality Assurance Lead: Ion Jasso MD Comp Metabolic Profon 2024 Albumin [Mass/Vol] 4.4 g/dL Normal 3.5-5.2 [facility] Comment on above: Performed By: #### L IP, CP, CDP #### [address] [place] [address] Quality Assurance Lead: Ion Jasso MD Albumin/Glob Ratio 1.8 Normal 1.0-2.5 [facility] Comment on above: Performed By: #### L IP CP, CDP #### [facility] [address] [place], [place] [id number] Quality Assurance Lead: Ion Jasso MD Alkaline Phos 127 U/L High 35-[address] [facility] Comment on above: Performed By: #### L IP, CP, CDP #### [facility] [address] [place], [place] 0184683 Quality Assurance Lead: Ion Jasso MD ALT [Catalytic activity/Vol] 10 U/L Normal 10-35 [facility] Comment on above: Performed By: #### L TORIBIO CP, CDP #### [address] [place], [place] 3665683 Quality Assurance Lead: Ion Jasso MD Anion gap [Moles/Vol] 12 mmol/L Normal 9-16 [facility] Comment on above: Performed By: #### L TORIBIO CP, CDP #### [address] [place], [place] 4768583 Quality Assurance Lead: Ion Jasso MD AST [Catalytic activity/Vol] 19 U/L Normal 10-35 [facility] Comment on above: Performed By: #### L IP CP, CDP #### [facility] [address] [place], [place] 2118983 Quality Assurance Lead: Ion Jasso MD Bilirubin [Mass/Vol] mg/dL Normal 0.00-1.20 [facility] Comment on above: Performed By: #### L IP, CP, CDP #### [facility] [address] [place] [address] Quality Assurance Lead: Ion Jasso MD BUN/CRE Ratio 9 Normal 9-[address] [facility] Comment on above: Performed By: #### L IP, CP, CDP #### [facility] [address] [place] [address] Quality Assurance Lead: Ion Jasso MD Calcium [Mass/Vol] 9.6 mg/dL Normal 8.6-10.4 [facility] Comment on above: Performed By: #### L IP, CP, CDP #### [facility] [address] [place] [address] [place], [place] [id number] Quality Assurance Lead: Ion Jasso MD Chloride [Moles/Vol] 105 mmol/L Normal 98-107 [facility] Comment on above: Performed By: #### L IP, CP, CDP #### [address] [place] [address] Quality Assurance Lead: Ion Jasso MD CO2 [Moles/Vol] 23 mmol/L Normal 20-31 [facility] Comment on above: Performed By: #### L TORIBIO CP, CDP #### [address] [place], [place] 5950683 Quality Assurance Lead: Ion Jasso MD Creatinine [Mass/Vol] 0.9 mg/dL Normal 0.50-0.90 [facility] Comment on above: Performed By: #### L TORIBIO CP, CDP #### [address] [place] [address] Quality Assurance Lead: Ion Jasso MD GFR/1.73 sq M.predicted among non-blacks MDRD (S/P/Bld) [Vol rate/Area] 77 mL/min/{1.73_m2} Normal >60 [facility] Comment on above: Result Comment: These [...] By: #### L IP, CP, CDP #### [facility] [address] [place], [place] 8853883 Quality Assurance Lead: Ion Jasso MD Glucose [Mass/Vol] 97 mg/dL Normal 74-99 [facility] Comment on above: Performed By: #### L IP, CP, CDP #### [facility] [address] [place], [place] 9450183 Quality Assurance Lead: Ion Jasso MD Potassium [Moles/Vol] 4.4 mmol/L Normal 3.7-5.3 [facility] Comment on above: Performed By: #### L IP, CP, CDP #### [facility] [address] [place], [place] 1963683 Quality Assurance Lead: Ion Jasso MD Protein [Mass/Vol] 6.8 g/dL Normal 6.6-8.7 [facility] Comment on above: Performed By: #### L IP, CP, CDP #### [facility] [address] [place], [place] 1255183 Quality Assurance Lead: Ion Jasso MD Sodium [Moles/Vol] 140 mmol/L Normal 136-145 [facility] Comment on above: Performed By: #### L IP, CP, CDP #### [facility] [address] [place], [place] 5949883 Quality Assurance Lead: Ion Jasso MD Urea nitrogen [Mass/Vol] 8 mg/dL Normal 6-20 [facility] Comment on above: Performed By: #### L IP, CP, CDP #### [facility] [address] [place], [place] 4973283 Quality Assurance Lead: Ion Jasso MD Comprehensive Metabolic Pane [facility] 09-20-2024 Albumin [Mass/Vol] 4.4 g/dL 3.5 - 5.2 g/dL [facility] Albumin/Globulin [Mass ratio] 1.8 {ratio} 1.0 - 2.5 [facility] ALP [Catalytic activity/Vol] 127 U/L High 35 - 104 U/L [facility] ALT [Catalytic activity/Vol] 10 U/L 10 - 35 U/L [facility] Anion gap [Moles/Vol] 12 mmol/L 9 - 16 mmol/L [facility] AST [Catalytic activity/Vol] 19 U/L 10 - 35 U/L [facility] Bilirubin [Mass/Vol] mg/dL 0.00 - 1.20 mg/dL [facility] Calcium [Mass/Vol] 9.6 mg/dL 8.6 - 10. 4 mg/dL [facility] Chloride [Moles/Vol] 105 mmol/L 98 - 10 7 mmol/L [facility] CO2 [Moles/Vol] 23 mmol/L 20 - 31 mmol/L [facility] Creatinine [Mass/Vol] 0.9 mg/dL 0.50 - 0.90 mg/dL [facility] Est, Glom Filt Rate 77 - PINF [facility] Comment on above: These results [...] [Mass/Vol] 97 mg/dL 74 - 99 mg/dL [facility] Potassium [Moles/Vol] 4.4 mmol/L 3.7 - 5.3 mmol/L [facility] Protein [Mass/Vol] 6.8 g/dL 6.6 - 8.7 g/dL [facility] Sodium [Moles/Vol] 140 mmol/L 136 - 145 mmol/L [facility] Urea nitrogen [Mass/Vol] 8 mg/dL 6 - 20 mg/dL [facility] Urea nitrogen/Creatinine [Mass ratio] 9 mg/mg 9 - 20 [facility] Lactic Acidon 09-20-2024 Lactate (BldV) [Moles/Vol] 1.2 mmol/L 0.5 - 2.2 mmol/L [facility] Lactate [Moles/Vol] 1.2 mmol/L Normal 0.5-2.2 [facility] Comment on above: Performed By: #### L WALTER ROONEY, CP #### [facility] [address] [place], [place] 6791583 Quality Assurance Lead: Ion Jasso MD Lipaseon 09-20-2024 Lipase [Catalytic activity/Vol] 89 U/L High 13 - 60 U/L [facility] Lipase [Catalytic activity/Vol] 89 U/L High 13-60 [facility] Comment on above: Performed By: #### L HARITHA ROONEY, CDP #### [facility] [address] [place] [address] Quality Assurance Lead: Ion Jasso MD No Panel Informationon 09-20 Interpretation and review of laboratory results Abnormal [facility] Urinalysis w/ Microon 2024 Bacteria 2+ Abnormal NONE [facility] Comment on above: Performed By: #### U AMIC #### [facility] [address] [place], [place] 0738483 Quality Assurance Lead: Ion Jasso MD Bilirubin, SemiQt,Ur Negative Normal NEG [facility] Comment on above: Performed By: #### U AMIC #### [facility] [address] [place], [place] 2474583 Quality Assurance Lead: Ion Jasso MD Blood, Urine Negative Normal NEG [facility] Comment on above: Performed By: #### U AMIC #### [facility] [address] [place] [address] Quality Assurance Lead: Ion Jasso MD Clarity (U) Clear Normal CLEAR [facility] Comment on above: Performed By: #### U AMIC #### [facility] [address] [place] [address] Quality Assurance Lead: Ion Jasso MD Color (U) Yellow Normal YEL [facility] Comment on above: Performed By: #### U AMIC #### [facility] [address] [place] [address] Dr. [place], [place] 1201883 Quality Assurance Lead: Ion Jasso MD Epithelial cells LM Ql (Urine sed) 2 TO 5 Normal 0-25 [facility] Comment on above: Performed By: #### U AMIC #### [facility] [address] [place], [place] 8904683 Quality Assurance Lead: Ion Jasso MD Glucose Ql (U) Negative Normal NEG [facility] Comment on above: Performed By: #### U AMIC #### [facility] [address] [place] [address] Dr. [place], [place] 1357183 Quality Assurance Lead: Ion Jasso MD Ketones Ql (U) Negative Normal NEG [facility] Comment on above: Performed By: #### U AMIC #### [facility] [address] [place] [address] Dr. [place], [place] 2851383 Quality Assurance Lead: Ion Jasso MD Leukocyte esterase Test strip Ql (U) Negative Normal NEG [facility] Comment on above: Performed By: #### U AMIC #### [address] [place], [place] 8069283 Quality Assurance Lead: Ion Jasso MD Nitrite,Ur Negative Normal NEG [facility] Comment on above: Performed By: #### U AMIC #### [facility] [address] [place] [address] Dr. [place], [place] 9499083 Quality Assurance Lead: Ion Jasso MD PH,Ur 6.0 Normal 5.0-9.0 [facility] Comment on above: Performed By: #### U AMIC #### [facility] [address] [place], [place] 0376083 Quality Assurance Lead: Ion Jasso MD Protein Ql (U) Negative Normal NEG [facility] Comment on above: Performed By: #### U AMIC #### [facility] [address] [place], [place] 7612283 Quality Assurance Lead: Ion Jasso MD Spec. [place],Ur >1.030 High 1.010-1.02 0 [facility] Comment on above: Performed By: #### U AMIC #### [facility] [address] [place] [address] Quality Assurance Lead: Ion Jasso MD Urine RBC's None Normal 0-2 [facility] Comment on above: Performed By: #### U AMIC #### [facility] [address] [place], [place] 0221183 Quality Assurance Lead: Ion Jasso MD Urine WBC's None Normal 0-5 [facility] Comment on above: Performed By: #### U AMIC #### [facility] [address] [place], [place] 6813483 Quality Assurance Lead: Ion Jasso MD Urobilinogen,Ur Normal Normal 0.0-1.0 [facility] Comment on above: Performed By: #### U AMIC #### [facility] [address] [place] [address] Dr. [place] 7860383 Quality Assurance Lead: Ion Jasso MD Urinalysis with Microscopico n 09-20-2024 Bacteria LM Ql (Urine sed) 2+ Abnormal None [facility] Bilirubin Ql (U) Negative NEGATIVE [facility] Clarity (U) Clear Clear [facility] Color (U) Yellow Yellow [facility] Epithelial cells LM.HPF (Urine sed) [#/Area] 2 TO 5 [facility] Glucose Test strip (U) [Mass/Vol] Negative NEGATIVE mg/dL [facility] Hemoglobin Auto test strip Ql (U) Negative NEGATIVE [facility] Interpretation and review of laboratory results Abnormal [facility] Ketones (U) [Mass/Vol] Negative NEGAT MATTHIAS mg/dL [facility] Leukocyte esterase Test strip Ql (U) Negative NEGATIVE [facility] Nitrite Ql (U) Negative NEGATIVE [facility] [facility] pH (U) 6 [pH] 5.0 - 9.0 [facility] Protein (U) [Mass/Vol] Negative NEGAT MATTHIAS mg/dL [facility] RBC LM.HPF (Urine sed) [#/Area] None [facility] Specific gravity (U) [Rel density] High 1.010 - 1.020 [facility] Urobilinogen Qn (U) Normal 0.0 - 1. 0 EU/dL [facility] WBC LM.HPF (Urine sed) [#/Area] None [facility] CT ABDOMEN AND PELVIS W [...] Dasilva MD on 09/19/2024 1:15 AM Normal [facility] POCT NURSING URINE MACROSCOP IC UAon 09-19-2024 BILIRUBIN JERE Negative Normal Negative [facility] Comment on above: Performed By: #### 8 9579-7, 06420-7, 5643-2, 16098-2, LIVR, 3040-3, CBCA, BMP #### [facility] ([id number]) [address] [place] [address], [place] [address] BLOOD/HGB JERE Negative Normal Negative [facility] Comment on above: Performed By: #### 8 9579-7, 59726-8, 5643-2, 30413-9, LIVR, 3040-3, CBCA, BMP #### [facility] ([id number]) [address] [place] [address] GLUCOSE JERE Negative Normal Negative [facility] Comment on above: Performed By: #### 8 9579-7, 12471-1, 5643-2, 50790-1, LIVR, 3040-3, CBCA, BMP #### [facility] ([id number]) [address] [place] [address] 27342 KETONES JERE Negative Normal Negative [facility] Comment on above: Performed By: #### 8 9579-7, 73654-1, 5643-2, 46189-9, LIVR, 3040-3, CBCA, BMP #### [facility] ([id number]) [address] [place] [address] [place] [address] LEUKOCYTE ESTERASE JERE Negative Normal Negative [facility] Comment on above: Performed By: #### 8 9579-7, 43077-1, 5643-2, 34815-6, LIVR, 3040-3, CBCA, BMP #### [facility] ([id number]) [address] [place] [address] [place] [address] NITRITE JERE Negative Normal Negative [facility] Comment on above: Performed By: #### 8 9579-7, 99941-8, 5643-2, 09036-1, LIVR, 3040-3, CBCA, BMP #### [facility] ([id number]) [address] [place] [address] 03403 PH JERE 5.5 Normal 5.0, 6.0, 6.5, 7.0, 7.5, 8.0, 8.5, 5.5 [facility] Comment on above: Performed By: #### 8 9579-7, 15792-4, 5643-2, 44889-0, LIVR, 3040-3, CBCA, BMP #### [facility] ([id number]) [address] [place] [address] 73044 PROTEIN JERE Negative Normal Negative [facility] Comment on above: Performed By: #### 8 9579-7, 73670-3, 5643-2, 34320-1, LIVR, 3040-3, CBCA, BMP #### [facility] ([id number]) [address] [place] [address] 92524 SPECIFIC GRAVITY JERE 1.025 Normal 1.010, 1.015, 1.020, 1.025 [facility] Comment on above: Performed By: #### 8 9579-7, 35701-6, 5643-2, 76927-7, LIVR, 3040-3, CBCA, BMP #### [facility] ([id number]) [address] [place] [address] 94729 UROBILINOGEN JERE 0.2 E.U./dL Normal [facility] Comment on above: Performed By: #### 8 9579-7, 25897-4, 5643-2, 39270-1, LIVR, 3040-3, CBCA, BMP #### [facility] ([id number]) [address] [place] [address] 90271 APTTon 09-18-2024 aPTT Coag (Bld) [Time] 26 s Normal 26-37 [facility] Comment on above: Performed By: #### 8 9579-7, 58084-4, 5643-2, 20660-3, LIVR, 3040-3, CBCA, BMP #### [facility] ([id number]) [address] [place] [address] 60954 BASIC METABOLIC PANELon 07- Anion gap [Moles/Vol] 6 mmol/L Normal 5-15 [facility] Comment on above: Performed By: #### 8 9579-7, 73039-8, 5643-2, 59710-4, LIVR, 3040-3, CBCA, BMP #### [facility] ([id number]) [address] [place] [address] 22468 Calcium [Mass/Vol] 9.8 mg/dL Normal 8.5-10.5 [facility] Comment on above: Performed By: #### 8 9579-7, 56516-6, 5643-2, 13965-1, LIVR, 3040-3, CBCA, BMP #### [facility] ([id number]) [address] [place] [address] 91294 Chloride [Moles/Vol] 106 mmol/L Normal 98-109 [facility] Comment on above: Performed By: #### 8 9579-7, 74221-8, 5643-2, 70989-0, LIVR, 3040-3, CBCA, BMP #### [facility] ([id number]) [address] [place] [address] 55971 CO2 [Moles/Vol] 27 mmol/L Normal 22-32 [facility] Comment on above: Performed By: #### 8 9579-7, 27649-3, 5643-2, 70964-6, LIVR, 3040-3, CBCA, BMP #### [facility] ([id number]) [address] [place] [address] 16998 Creatinine [Mass/Vol] 0.91 mg/dL Normal 0.40-1.00 [facility] Comment on above: Result Comment: METH OD TRACEABLE TO IDMS STANDARD Performed By: #### 8 9579-7, 20806-1, 5643-2, 66196-9, LIVR, 3040-3, CBCA, BMP #### [facility] ([id number]) [address] [place] [address] 59777 GFR/1.73 sq M.predicted among non-blacks MDRD (S/P/Bld) [Vol rate/Area] 75 mL/min/{1.73_m2} Normal >=60 [facility] Comment on above: Result Comment: eGFR not reported due to non-numeric value for Creatinine. Reported eGFR is based on the CKD-EPI 2020 equation that does not use a race coefficient. Performed By: #### 8 9579-7, 63848-1, 5643-2, 29206-6, LIVR, 3040-3, CBCA, BMP #### [facility] ([id number]) [address] [place] [address] 87326 Glucose [Mass/Vol] 76 mg/dL Normal 65-99 [facility] Comment on above: Performed By: #### 8 9579-7, 45622-7, 5643-2, 20312-2, LIVR, 3040-3, CBCA, BMP #### [facility] ([id number]) [address] [place] [address] 55712 Potassium [Moles/Vol] 3.5 mmol/L Normal 3.5-5.0 [facility] Comment on above: Performed By: #### 8 9579-7, 95161-0, 5643-2, 44477-9, LIVR, 3040-3, CBCA, BMP #### [facility] ([id number]) [address] [place] [address] 05292 Sodium [Moles/Vol] 139 mmol/L Normal 134-146 [facility] Comment on above: Performed By: #### 8 9579-7, 38917-8, 5643-2, 76974-7, LIVR, 3040-3, CBCA, BMP #### [facility] ([id number]) [address] [place] [address] 88843 Urea nitrogen [Mass/Vol] 10 mg/dL Normal 5-23 [facility] Comment on above: Performed By: #### 8 9579-7, 94845-3, 5643-2, 26266-1, LIVR, 3040-3, CBCA, BMP #### [facility] ([id number]) [address] [place] [address] 51180 CBC WITH AUTO DIFFERENTIALon 09-18-2024 BASOPHILS ABSOLUTE COUNT (10*3/UL) BY AUTOMATED COUNT 0.1 10*3/uL Normal 0.0-0.2 [facility] Comment on above: Performed By: #### 8 9579-7, 43120-6, 5643-2, 34716-2, LIVR, 3040-3, CBCA, BMP #### [facility] ([id number]) [address] [place] [address] 15908 BASOPHILS RELATIVE PERCENT BY AUTOMATED COUNT 0.7 % Normal [facility] Comment on above: Performed By: #### 8 9579-7, 16146-4, 5643-2, 19319-3, LIVR, 3040-3, CBCA, BMP #### [facility] ([id number]) [address] [place] [address] 34291 CELLAVISION DIFFERENTIAL TYPE AUTOMATED DIFFERENTIAL Normal [facility] Comment on above: Performed By: #### 8 9579-7, 20253-6, 5643-2, 44471-0, LIVR, 3040-3, CBCA, BMP #### [facility] ([id number]) [address] [place] [address] 98708 Eosinophils (Bld) [#/Vol] 0.2 10*3/uL Normal 0.0-0.4 [facility] Comment on above: Performed By: #### 8 9579-7, 93317-5, 5643-2, 61046-1, LIVR, 3040-3, CBCA, BMP #### [facility] ([id number]) [address] [place] [address] 68182 EOSINOPHILS RELATIVE PERCENT BY AUTOMATED COUNT 1.5 % Normal [facility] Comment on above: Performed By: #### 8 9579-7, 08823-1, 5643-2, 85617-0, LIVR, 3040-3, CBCA, BMP #### [facility] ([id number]) [address] [place] [address] 40538 Erythrocyte distribution width (RBC) [Ratio] 13.7 % Normal 11.5-15 [facility] Comment on above: Performed By: #### 8 9579-7, 52422-0, 5643-2, 59142-0, LIVR, 3040-3, CBCA, BMP #### [facility] ([id number]) [address] [place] [address] 32298 Hematocrit (Bld) [Volume fraction] 42.3 % Normal 35-47 [facility] Comment on above: Performed By: #### 8 9579-7, 21608-7, 5643-2, 74601-7, LIVR, 3040-3, CBCA, BMP #### [facility] ([id number]) [address] [place] [address] 92188 Hemoglobin (Bld) [Mass/Vol] 14.8 g/dL Normal 11.7-15.5 [facility] Comment on above: Performed By: #### 8 9579-7, 20215-0, 5643-2, 01612-6, LIVR, 3040-3, CBCA, BMP #### [facility] ([id number]) [address] [place] [address] 57418 LYMPHOCYTES ABSOLUTE COUNT (10*3/UL) BY AUTOMATED COUNT 2.8 10*3/uL Normal 1.0-3.5 [facility] Comment on above: Performed By: #### 8 9579-7, 25778-9, 5643-2, 59191-7, LIVR, 3040-3, CBCA, BMP #### [facility] ([id number]) [address] [place] [address] 49333 LYMPHOCYTES RELATIVE PERCENT BY AUTOMATED COUNT 26.7 % Normal [facility] Comment on above: Performed By: #### 8 9579-7, 34954-9, 5643-2, 05991-5, LIVR, 3040-3, CBCA, BMP #### [facility] ([id number]) [address] [place] [address] 46848 MCH (RBC) [Entitic mass] 33.4 pg Normal 27-34 [facility] Comment on above: Performed By: #### 8 9579-7, 00768-1, 5643-2, 64074-7, LIVR, 3040-3, CBCA, BMP #### [facility] ([id number]) [address] [place] [address] 39061 MCHC (RBC) [Mass/Vol] 34.9 g/dL Normal 32-36 [facility] Comment on above: Performed By: #### 8 9579-7, 73603-7, 5643-2, 43272-6, LIVR, 3040-3, CBCA, BMP #### [facility] ([id number]) [address] [place] [address] 89268 MCV (RBC) [Entitic vol] 96 fL Normal 80-100 [facility] Comment on above: Performed By: #### 8 9579-7, 57914-7, 5643-2, 28550-8, LIVR, 3040-3, CBCA, BMP #### [facility] ([id number]) [address] [place] [address] 50685 MONOCYTES ABSOLUTE COUNT (10*3/UL) BY AUTOMATED COUNT 0.9 10*3/uL Normal 0.0-0.9 [facility] Comment on above: Performed By: #### 8 9579-7, 43964-0, 5643-2, 25342-5, LIVR, 3040-3, CBCA, BMP #### [facility] ([id number]) [address] [place] [address] 34937 MONOCYTES RELATIVE PERCENT BY AUTOMATED COUNT 8.8 % Normal [facility] Comment on above: Performed By: #### 8 9579-7, 14398-9, 5643-2, 38175-6, LIVR, 3040-3, CBCA, BMP #### [facility] ([id number]) [address] [place] [address] 83861 NEUTROPHILS ABSOLUTE COUNT BY AUTOMATED COUNT 6.6 10*3/uL Normal 1.5-6.6 [facility] Comment on above: Performed By: #### 8 9579-7, 61067-2, 5643-2, 74640-5, LIVR, 3040-3, CBCA, BMP #### [facility] ([id number]) [address] [place] [address] 52573 NEUTROPHILS RELATIVE PERCENT BY AUTOMATED COUNT 62.3 % Normal [facility] Comment on above: Performed By: #### 8 9579-7, 39189-2, 5643-2, 78927-4, LIVR, 3040-3, CBCA, BMP #### [facility] ([id number]) [address] [place] [address] 13904 Platelet mean volume (Bld) [Entitic vol] 8.3 fL Normal 7-12 [facility] Comment on above: Performed By: #### 8 9579-7, 28976-2, 5643-2, 69033-2, LIVR, 3040-3, CBCA, BMP #### [facility] ([id number]) [address] [place] [address] 44645 Platelets (Bld) [#/Vol] 283 10*3/uL Normal 150-450 [facility] Comment on above: Performed By: #### 8 9579-7, 82472-8, 5643-2, 56994-7, LIVR, 3040-3, CBCA, BMP #### [facility] ([id number]) [address] [place] [address] 90334 RBC COUNT 4.43 X10E12/L Normal 3.8-5.2 [facility] Comment on above: Performed By: #### 8 9579-7, 41723-6, 5643-2, 62860-0, LIVR, 3040-3, CBCA, BMP #### [facility] ([id number]) [address] [place] [address] 74426 WBC (Bld) [#/Vol] 10.5 10*3/uL Normal 4-11 [facility] Comment on above: Performed By: #### 8 9579-7, 38629-6, 5643-2, 68145-2, LIVR, 3040-3, CBCA, BMP #### [facility] ([id number]) [address] [place] [address] 68922 ETHANOLon 09-18-2024 Ethanol [Mass/Vol] mg/dL Normal <=0.080 [facility] Comment on above: Result Comment: This report is intended for use in clinical monitoring or management of patients. Performed By: #### 8 9579-7, 81459-3, 5643-2, 61785-5, LIVR, 3040-3, CBCA, BMP #### [facility] ([id number]) [address] [place] [id number] LIPASEon 09-18-2024 Lipase [Catalytic activity/Vol] 187 U/L High 17-40 [facility] Comment on above: Performed By: #### 8 9579-7, 29458-0, 5643-2, 96689-3, LIVR, 3040-3, CBCA, BMP #### [facility] ([id number]) [address] [place] [address] [id number] LIVER PANELon 09-18-2024 Albumin [Mass/Vol] 4.3 g/dL Normal 3.2-5.3 [facility] Comment on above: Performed By: #### 8 9579-7, 34995-2, 5643-2, 37888-1, LIVR, 3040-3, CBCA, BMP #### [facility] ([id number]) [address] [place] [id number] ALP [Catalytic activity/Vol] 127 U/L Normal 39-130 [facility] Comment on above: Performed By: #### 8 9579-7, 31012-6, 5643-2, 33623-4, LIVR, 3040-3, CBCA, BMP #### [facility] ([id number]) [address] [place] [address] [id number] ALT [Catalytic activity/Vol] 13 U/L Normal <=31 [facility] Comment on above: Performed By: #### 8 9579-7, 84653-2, 5643-2, 84080-4, LIVR, 3040-3, CBCA, BMP #### [facility] ([id number]) [address] [place] [address] 62420 AST [Catalytic activity/Vol] 20 U/L Normal <=41 [facility] Comment on above: Performed By: #### 8 9579-7, 78027-5, 5643-2, 55600-2, LIVR, 3040-3, CBCA, BMP #### [facility] ([id number]) [address] [place] [address] 30276 Bilirubin [Mass/Vol] 0.3 mg/dL Normal 0.3-1.2 [facility] Comment on above: Performed By: #### 8 9579-7, 08992-4, 5643-2, 50637-6, LIVR, 3040-3, CBCA, BMP #### [facility] ([id number]) [address] [place] [address] 53217 Bilirubin.indirect [Mass/Vol] mg/dL Normal <=0.4 [facility] Comment on above: Performed By: #### 8 9579-7, 69111-7, 5643-2, 10815-6, LIVR, 3040-3, CBCA, BMP #### [facility] ([id number]) [address] [place] [address] [place] [address] Protein [Mass/Vol] 7.4 g/dL Normal 6.0-8.0 [facility] Comment on above: Performed By: #### 8 9579-7, 73309-0, 5643-2, 51366-9, LIVR, 3040-3, CBCA, BMP #### [facility] ([id number]) [address] [place] [address] [place] [address] MAGNESIUMon 09-18-2024 Magnesium [Mass/Vol] 2.4 mg/dL Normal 1.8-2.6 [facility] Comment on above: Performed By: #### 8 9579-7, 66367-9, 5643-2, 09363-6, LIVR, 3040-3, CBCA, BMP #### [facility] ([id number]) [address] [place] [address] [place] [address] PROTIME AND INRon 09-18-2024 INR 1.0 Normal 0.9-1.2 [facility] Comment on above: Performed By: #### 8 9579-7, 45510-7, 5643-2, 14082-1, LIVR, 3040-3, CBCA, BMP #### [facility] ([id number]) [address] [place] [address] 68419 PT Coag (PPP) [Time] 10.9 s Normal 9.8-13.2 [facility] Comment on above: Performed By: #### 8 9579-7, 15584-4, 5643-2, 95195-1, LIVR, 3040-3, CBCA, BMP #### [facility] ([id number]) [address] [place] [address] 08010 TROP I, HIGH SENSITIVITY 1 H OURon 09-18-2024 TROPONIN I, HIGH SENSITIVITY 2 ng/L Normal <16 [facility] Comment on above: Performed By: #### 8 9579-7, 61091-9, 5643-2, 78315-6, LIVR, 3040-3, CBCA, BMP #### [facility] ([id number]) [address] [place] [address] 23090 TROPONIN I, HIGH SENSITIVITY 0 HOURon 09-18-2024 TROPONIN I, HIGH SENSITIVITY 3 ng/L Normal <16 [facility] Comment on above: Performed By: #### 8 9579-7, 04364-8, 5643-2, 33793-9, LIVR, 3040-3, CBCA, BMP #### [facility] ([id number]) [address] [place] [address] 89647 CBC WITH AUTO DIFFERENTIALon 09-05-2024 BASOPHILS ABSOLUTE COUNT (10*3/UL) BY AUTOMATED COUNT 0.1 10*3/uL Normal 0.0-0.2 [facility] Comment on above: Performed By: #### 8 9579-7, 03987-0, 5643-2, 45963-3, LIVR, 3040-3, CBCA, BMP #### [facility] ([id number]) [address] [place] [address] 95318 BASOPHILS RELATIVE PERCENT BY AUTOMATED COUNT 1.1 % Normal [facility] Comment on above: Performed By: #### 8 9579-7, 14787-0, 5643-2, 92635-7, LIVR, 3040-3, CBCA, BMP #### [facility] ([id number]) [address] [place] [address] 60268 CELLAVISION DIFFERENTIAL TYPE AUTOMATED DIFFERENTIAL Normal [facility] Comment on above: Performed By: #### 8 9579-7, 17768-2, 5643-2, 19774-4, LIVR, 3040-3, CBCA, BMP #### [facility] ([id number]) [address] [place] [address] 82450 Eosinophils (Bld) [#/Vol] 0.2 10*3/uL Normal 0.0-0.4 [facility] Comment on above: Performed By: #### 8 9579-7, 35310-5, 5643-2, 25744-7, LIVR, 3040-3, CBCA, BMP #### [facility] ([id number]) [address] [place] [address] 76880 EOSINOPHILS RELATIVE PERCENT BY AUTOMATED COUNT 2.1 % Normal [facility] Comment on above: Performed By: #### 8 9579-7, 52938-9, 5643-2, 90058-4, LIVR, 3040-3, CBCA, BMP #### [facility] ([id number]) [address] [place] [address] 40231 Erythrocyte distribution width (RBC) [Ratio] 13.2 % Normal 11.5-15 [facility] Comment on above: Performed By: #### 8 9579-7, 49609-3, 5643-2, 19370-6, LIVR, 3040-3, CBCA, BMP #### [facility] ([id number]) [address] [place] [address] 67331 Hematocrit (Bld) [Volume fraction] 43.1 % Normal 35-47 [facility] Comment on above: Performed By: #### 8 9579-7, 26602-4, 5643-2, 87397-7, LIVR, 3040-3, CBCA, BMP #### [facility] ([id number]) [address] [place] [address] 62215 Hemoglobin (Bld) [Mass/Vol] 15.0 g/dL Normal 11.7-15.5 [facility] Comment on above: Performed By: #### 8 9579-7, 14391-1, 5643-2, 09001-8, LIVR, 3040-3, CBCA, BMP #### [facility] ([id number]) [address] [place] [address] 43222 LYMPHOCYTES ABSOLUTE COUNT (10*3/UL) BY AUTOMATED COUNT 3.4 10*3/uL Normal 1.0-3.5 [facility] Comment on above: Performed By: #### 8 9579-7, 84289-2, 5643-2, 57891-1, LIVR, 3040-3, CBCA, BMP #### [facility] ([id number]) [address] [place] [address] 10767 LYMPHOCYTES RELATIVE PERCENT BY AUTOMATED COUNT 35.0 % Normal [facility] Comment on above: Performed By: #### 8 9579-7, 46371-8, 5643-2, 22410-4, LIVR, 3040-3, CBCA, BMP #### [facility] ([id number]) [address] [place] [address] 63581 MCH (RBC) [Entitic mass] 33.8 pg Normal 27-34 [facility] Comment on above: Performed By: #### 8 9579-7, 61299-3, 5643-2, 11857-7, LIVR, 3040-3, CBCA, BMP #### [facility] ([id number]) [address] [place] [address] 07249 MCHC (RBC) [Mass/Vol] 34.8 g/dL Normal 32-36 [facility] Comment on above: Performed By: #### 8 9579-7, 89239-4, 5643-2, 47319-5, LIVR, 3040-3, CBCA, BMP #### [facility] ([id number]) [address] [place] [address] 83457 MCV (RBC) [Entitic vol] 97 fL Normal 80-100 [facility] Comment on above: Performed By: #### 8 9579-7, 60095-6, 5643-2, 55590-0, LIVR, 3040-3, CBCA, BMP #### [facility] ([id number]) [address] [place] [address] 21676 MONOCYTES ABSOLUTE COUNT (10*3/UL) BY AUTOMATED COUNT 0.8 10*3/uL Normal 0.0-0.9 [facility] Comment on above: Performed By: #### 8 9579-7, 48119-8, 5643-2, 77031-8, LIVR, 3040-3, CBCA, BMP #### [facility] ([id number]) [address] [place] [address] 39239 MONOCYTES RELATIVE PERCENT BY AUTOMATED COUNT 8.5 % Normal [facility] Comment on above: Performed By: #### 8 9579-7, 59633-4, 5643-2, 34867-4, LIVR, 3040-3, CBCA, BMP #### [facility] ([id number]) [address] [place] [address] 67231 NEUTROPHILS ABSOLUTE COUNT BY AUTOMATED COUNT 5.2 10*3/uL Normal 1.5-6.6 [facility] Comment on above: Performed By: #### 8 9579-7, 28041-6, 5643-2, 36108-5, LIVR, 3040-3, CBCA, BMP #### [facility] ([id number]) [address] [place] [address] 35845 NEUTROPHILS RELATIVE PERCENT BY AUTOMATED COUNT 53.3 % Normal [facility] Comment on above: Performed By: #### 8 9579-7, 85639-8, 5643-2, 14714-6, LIVR, 3040-3, CBCA, BMP #### [facility] ([id number]) [address] [place] [address] 91554 Platelet mean volume (Bld) [Entitic vol] 8.0 fL Normal 7-12 [facility] Comment on above: Performed By: #### 8 9579-7, 03753-8, 5643-2, 04940-0, LIVR, 3040-3, CBCA, BMP #### [facility] ([id number]) [address] [place] [address] 60666 Platelets (Bld) [#/Vol] 275 10*3/uL Normal 150-450 [facility] Comment on above: Performed By: #### 8 9579-7, 63679-1, 5643-2, 94136-1, LIVR, 3040-3, CBCA, BMP #### [facility] ([id number]) [address] [place] [address] 70841 RBC COUNT 4.44 X10E12/L Normal 3.8-5.2 [facility] Comment on above: Performed By: #### 8 9579-7, 27426-9, 5643-2, 44443-0, LIVR, 3040-3, CBCA, BMP #### [facility] ([id number]) [address] [place] [address] 04325 WBC (Bld) [#/Vol] 9.7 10*3/uL Normal 4-11 [facility] Comment on above: Performed By: #### 8 9579-7, 76625-2, 5643-2, 82195-8, LIVR, 3040-3, CBCA, BMP #### [facility] ([id number]) [address] [place] [address] 44816 COMPREHENSIVE METABOLIC PANE [facility] 09-05-2024 Albumin [Mass/Vol] 4.2 g/dL Normal 3.2-5.3 [facility] Comment on above: Performed By: #### 8 9579-7, 18966-6, 5643-2, 81387-9, LIVR, 3040-3, CBCA, BMP #### [facility] ([id number]) [address] [place] [address] 77115 ALP [Catalytic activity/Vol] 129 U/L Normal 39-130 [facility] Comment on above: Performed By: #### 8 9579-7, 64199-9, 5643-2, 86089-3, LIVR, 3040-3, CBCA, BMP #### [facility] ([id number]) [address] [place] [address] 16785 ALT [Catalytic activity/Vol] 13 U/L Normal <=31 [facility] Comment on above: Performed By: #### 8 9579-7, 31437-1, 5643-2, 97915-1, LIVR, 3040-3, CBCA, BMP #### [facility] ([id number]) [address] [place] [address] 13036 Anion gap [Moles/Vol] 7 mmol/L Normal 5-15 [facility] Comment on above: Performed By: #### 8 9579-7, 33396-9, 5643-2, 76135-0, LIVR, 3040-3, CBCA, BMP #### [facility] ([id number]) [address] [place] [address] 97336 AST [Catalytic activity/Vol] 22 U/L Normal <=41 [facility] Comment on above: Performed By: #### 8 9579-7, 78246-8, 5643-2, 92902-9, LIVR, 3040-3, CBCA, BMP #### [facility] ([id number]) [address] [place] [address] 33911 Bilirubin [Mass/Vol] 0.3 mg/dL Normal 0.3-1.2 [facility] Comment on above: Performed By: #### 8 9579-7, 01823-7, 5643-2, 17301-1, LIVR, 3040-3, CBCA, BMP #### [facility] ([id number]) [address] [place] [address] 44308 Calcium [Mass/Vol] 10.2 mg/dL Normal 8.5-10.5 [facility] Comment on above: Performed By: #### 8 9579-7, 46709-4, 5643-2, 62522-7, LIVR, 3040-3, CBCA, BMP #### [facility] ([id number]) [address] [place] [address] 92176 Chloride [Moles/Vol] 106 mmol/L Normal 98-109 [facility] Comment on above: Performed By: #### 8 9579-7, 59421-7, 5643-2, 69231-2, LIVR, 3040-3, CBCA, BMP #### [facility] ([id number]) [address] [place] [address] 20958 CO2 [Moles/Vol] 26 mmol/L Normal 22-32 [facility] Comment on above: Performed By: #### 8 9579-7, 74470-2, 5643-2, 82009-4, LIVR, 3040-3, CBCA, BMP #### [facility] ([id number]) [address] [place] [address] 49488 Creatinine [Mass/Vol] 0.74 mg/dL Normal 0.40-1.00 [facility] Comment on above: Result Comment: METH OD TRACEABLE TO IDMS STANDARD Performed By: #### 8 9579-7, 36137-5, 5643-2, 42216-5, LIVR, 3040-3, CBCA, BMP #### [facility] ([id number]) [address] [place] [address] 67667 EGFR (CKD-EPI) NON-RACE DEPENDENT >^90 Normal >=60 [facility] Comment on above: Result Comment: eGFR not reported due to non-numeric value for Creatinine. Reported eGFR is based on the CKD-EPI 2020 equation that does not use a race coefficient. Performed By: #### 8 9579-7, 32651-1, 5643-2, 26807-2, LIVR, 3040-3, CBCA, BMP #### [facility] ([id number]) [address] [place] [address] 25061 Glucose [Mass/Vol] 120 mg/dL High 65-99 [facility] Comment on above: Performed By: #### 8 9579-7, 01437-9, 5643-2, 62774-1, LIVR, 3040-3, CBCA, BMP #### [facility] ([id number]) [address] [place] [address] 47649 Potassium [Moles/Vol] 3.6 mmol/L Normal 3.5-5.0 [facility] Comment on above: Performed By: #### 8 9579-7, 48288-5, 5643-2, 14740-4, LIVR, 3040-3, CBCA, BMP #### [facility] ([id number]) [address] [place] [address] 80194 Protein [Mass/Vol] 7.5 g/dL Normal 6.0-8.0 [facility] Comment on above: Performed By: #### 8 9579-7, 38825-9, 5643-2, 81156-1, LIVR, 3040-3, CBCA, BMP #### [facility] ([id number]) [address] [place] [address] 73604 Sodium [Moles/Vol] 139 mmol/L Normal 134-146 [facility] Comment on above: Performed By: #### 8 9579-7, 26776-8, 5643-2, 62025-8, LIVR, 3040-3, CBCA, BMP #### [facility] ([id number]) [address] [place] [address] 96893 Urea nitrogen [Mass/Vol] 11 mg/dL Normal 5-23 [facility] Comment on above: Performed By: #### 8 9579-7, 90293-9, 5643-2, 01364-1, LIVR, 3040-3, CBCA, BMP #### [facility] ([id number]) [address] [place] [address] 53469 LIPASEon 09-05-2024 Lipase [Catalytic activity/Vol] 44 U/L High 17-40 [facility] Comment on above: Performed By: #### 8 9579-7, 05703-5, 5643-2, 17559-5, LIVR, 3040-3, CBCA, BMP #### [facility] ([id number]) [address] [place] [address] 41044 CBC WITH AUTO DIFFERENTIALon 08-10-2024 BASOPHILS ABSOLUTE COUNT (10*3/UL) BY AUTOMATED COUNT 0.2 10*3/uL Normal 0.0-0.2 [facility] Comment on above: Performed By: #### 8 9579-7, 50054-4, 5643-2, 46164-7, LIVR, 3040-3, CBCA, BMP #### [facility] ([id number]) [address] [place] [address] 91631 BASOPHILS RELATIVE PERCENT BY AUTOMATED COUNT 2.0 % Normal [facility] Comment on above: Performed By: #### 8 9579-7, 34457-6, 5643-2, 23893-4, LIVR, 3040-3, CBCA, BMP #### [facility] ([id number]) [address] [place] [address] 68594 CELLAVISION DIFFERENTIAL TYPE AUTOMATED DIFFERENTIAL Normal [facility] Comment on above: Performed By: #### 8 9579-7, 13331-7, 5643-2, 77431-5, LIVR, 3040-3, CBCA, BMP #### [facility] ([id number]) [address] [place] [address] 83565 Eosinophils (Bld) [#/Vol] 0.1 10*3/uL Normal 0.0-0.4 [facility] Comment on above: Performed By: #### 8 9579-7, 75100-3, 5643-2, 58039-8, LIVR, 3040-3, CBCA, BMP #### [facility] ([id number]) [address] [place] [address] 72530 EOSINOPHILS RELATIVE PERCENT BY AUTOMATED COUNT 0.8 % Normal [facility] Comment on above: Performed By: #### 8 9579-7, 82748-7, 5643-2, 16058-1, LIVR, 3040-3, CBCA, BMP #### [facility] ([id number]) [address] [place] [address] 24461 Erythrocyte distribution width (RBC) [Ratio] 13.0 % Normal 11.5-15 [facility] Comment on above: Performed By: #### 8 9579-7, 52230-1, 5643-2, 88717-4, LIVR, 3040-3, CBCA, BMP #### [facility] ([id number]) [address] [place] [address] 89842 Hematocrit (Bld) [Volume fraction] 41.7 % Normal 35-47 [facility] Comment on above: Performed By: #### 8 9579-7, 94396-3, 5643-2, 27493-6, LIVR, 3040-3, CBCA, BMP #### [facility] ([id number]) [address] [place] [address] 40884 Hemoglobin (Bld) [Mass/Vol] 14.2 g/dL Normal 11.7-15.5 [facility] Comment on above: Performed By: #### 8 9579-7, 03786-9, 5643-2, 58712-7, LIVR, 3040-3, CBCA, BMP #### [facility] ([id number]) [address] [place] [address] 01009 LYMPHOCYTES ABSOLUTE COUNT (10*3/UL) BY AUTOMATED COUNT 2.1 10*3/uL Normal 1.0-3.5 [facility] Comment on above: Performed By: #### 8 9579-7, 54684-8, 5643-2, 75366-0, LIVR, 3040-3, CBCA, BMP #### [facility] ([id number]) [address] [place] [address] 94962 LYMPHOCYTES RELATIVE PERCENT BY AUTOMATED COUNT 18.1 % Normal [facility] Comment on above: Performed By: #### 8 9579-7, 89565-9, 5643-2, 70083-1, LIVR, 3040-3, CBCA, BMP #### [facility] ([id number]) [address] [place] [address] 66184 MCH (RBC) [Entitic mass] 33.1 pg Normal 27-34 [facility] Comment on above: Performed By: #### 8 9579-7, 93515-7, 5643-2, 63137-0, LIVR, 3040-3, CBCA, BMP #### [facility] ([id number]) [address] [place] [address] 48901 MCHC (RBC) [Mass/Vol] 34.0 g/dL Normal 32-36 [facility] Comment on above: Performed By: #### 8 9579-7, 92585-8, 5643-2, 71461-9, LIVR, 3040-3, CBCA, BMP #### [facility] ([id number]) [address] [place] [address] 38853 MCV (RBC) [Entitic vol] 97 fL Normal 80-100 [facility] Comment on above: Performed By: #### 8 9579-7, 76137-4, 5643-2, 17604-7, LIVR, 3040-3, CBCA, BMP #### [facility] ([id number]) [address] [place] [address] 41488 MONOCYTES ABSOLUTE COUNT (10*3/UL) BY AUTOMATED COUNT 0.9 10*3/uL Normal 0.0-0.9 [facility] Comment on above: Performed By: #### 8 9579-7, 76186-8, 5643-2, 84021-9, LIVR, 3040-3, CBCA, BMP #### [facility] ([id number]) [address] [place] [address] 47274 MONOCYTES RELATIVE PERCENT BY AUTOMATED COUNT 7.9 % Normal [facility] Comment on above: Performed By: #### 8 9579-7, 85808-0, 5643-2, 42800-2, LIVR, 3040-3, CBCA, BMP #### [facility] ([id number]) [address] [place] [address] 10182 NEUTROPHILS ABSOLUTE COUNT BY AUTOMATED COUNT 8.4 10*3/uL High 1.5-6.6 [facility] Comment on above: Performed By: #### 8 9579-7, 79730-5, 5643-2, 58535-5, LIVR, 3040-3, CBCA, BMP #### [facility] ([id number]) [address] [place] [address] 69722 NEUTROPHILS RELATIVE PERCENT BY AUTOMATED COUNT 71.2 % Normal [facility] Comment on above: Performed By: #### 8 9579-7, 26365-9, 5643-2, 04013-6, LIVR, 3040-3, CBCA, BMP #### [facility] ([id number]) [address] [place] [address] 46959 Platelet mean volume (Bld) [Entitic vol] 8.1 fL Normal 7-12 [facility] Comment on above: Performed By: #### 8 9579-7, 47842-2, 5643-2, 02668-6, LIVR, 3040-3, CBCA, BMP #### [facility] ([id number]) [address] [place] [address] 73225 Platelets (Bld) [#/Vol] 272 10*3/uL Normal 150-450 [facility] Comment on above: Performed By: #### 8 9579-7, 20408-9, 5643-2, 12564-3, LIVR, 3040-3, CBCA, BMP #### [facility] ([id number]) [address] [place] [address] 93223 RBC COUNT 4.28 X10E12/L Normal 3.8-5.2 [facility] Comment on above: Performed By: #### 8 9579-7, 03905-9, 5643-2, 06038-7, LIVR, 3040-3, CBCA, BMP #### [facility] ([id number]) [address] [place] [address] 79521 WBC (Bld) [#/Vol] 11.8 10*3/uL High 4-11 [facility] Comment on above: Performed By: #### 8 9579-7, 34473-8, 5643-2, 34810-8, LIVR, 3040-3, CBCA, BMP #### [facility] ([id number]) [address] [place] [address] 97522 COMPREHENSIVE METABOLIC PANE Nimesh 08-10-2024 Albumin [Mass/Vol] 4.2 g/dL Normal 3.2-5.3 [facility] Comment on above: Performed By: #### 8 9579-7, 99877-6, 5643-2, 73447-9, LIVR, 3040-3, CBCA, BMP #### [facility] ([id number]) [address] [place] [address] 95946 ALP [Catalytic activity/Vol] 128 U/L Normal 39-130 [facility] Comment on above: Performed By: #### 8 9579-7, 05117-0, 5643-2, 59668-0, LIVR, 3040-3, CBCA, BMP #### [facility] ([id number]) [address] [place] [address] 11396 ALT [Catalytic activity/Vol] 16 U/L Normal <=31 [facility] Comment on above: Performed By: #### 8 9579-7, 74442-9, 5643-2, 43745-5, LIVR, 3040-3, CBCA, BMP #### [facility] ([id number]) [address] [place] [address] 70643 Anion gap [Moles/Vol] 4 mmol/L Low 5-15 [facility] Comment on above: Performed By: #### 8 9579-7, 00843-2, 5643-2, 38987-2, LIVR, 3040-3, CBCA, BMP #### [facility] ([id number]) [address] [place] [address] 00495 AST [Catalytic activity/Vol] 23 U/L Normal <=41 [facility] Comment on above: Performed By: #### 8 9579-7, 75738-8, 5643-2, 89900-9, LIVR, 3040-3, CBCA, BMP #### [facility] ([id number]) [address] [place] [address] 72796 Bilirubin [Mass/Vol] 0.3 mg/dL Normal 0.3-1.2 [facility] Comment on above: Performed By: #### 8 9579-7, 64782-8, 5643-2, 92575-8, LIVR, 3040-3, CBCA, BMP #### [facility] ([id number]) [address] [place] [address] 67553 Calcium [Mass/Vol] 9.8 mg/dL Normal 8.5-10.5 [facility] Comment on above: Performed By: #### 8 9579-7, 58716-3, 5643-2, 54993-8, LIVR, 3040-3, CBCA, BMP #### [facility] ([id number]) [address] [place] [address] 65039 Chloride [Moles/Vol] 106 mmol/L Normal 98-109 [facility] Comment on above: Performed By: #### 8 9579-7, 45322-9, 5643-2, 73375-9, LIVR, 3040-3, CBCA, BMP #### [facility] ([id number]) [address] [place] [address] 32779 CO2 [Moles/Vol] 27 mmol/L Normal 22-32 [facility] Comment on above: Performed By: #### 8 9579-7, 59576-6, 5643-2, 95494-3, LIVR, 3040-3, CBCA, BMP #### [facility] ([id number]) [address] [place] [address] 43876 Creatinine [Mass/Vol] 0.72 mg/dL Normal 0.40-1.00 [facility] Comment on above: Result Comment: METH OD TRACEABLE TO IDMS STANDARD Performed By: #### 8 9579-7, 05507-0, 5643-2, 46770-4, LIVR, 3040-3, CBCA, BMP #### [facility] ([id number]) [address] [place] [address] 96546 EGFR (CKD-EPI) NON-RACE DEPENDENT >^90 Normal >=60 [facility] Comment on above: Result Comment: eGFR not reported due to non-numeric value for Creatinine. Reported eGFR is based on the CKD-EPI 2020 equation that does not use a race coefficient. Performed By: #### 8 9579-7, 05784-0, 5643-2, 45589-6, LIVR, 3040-3, CBCA, BMP #### [facility] ([id number]) [address] [place] [address], [place] [address] Glucose [Mass/Vol] 115 mg/dL High 65-99 [facility] Comment on above: Performed By: #### 8 9579-7, 15718-2, 5643-2, 73228-2, LIVR, 3040-3, CBCA, BMP #### [facility] ([id number]) [address] [place] [address], [place] [address] Potassium [Moles/Vol] 4.3 mmol/L Normal 3.5-5.0 [facility] Comment on above: Performed By: #### 8 9579-7, 36149-7, 5643-2, 13759-1, LIVR, 3040-3, CBCA, BMP #### [facility] ([id number]) [address] [place] [address] 25191 Protein [Mass/Vol] 7.5 g/dL Normal 6.0-8.0 [facility] Comment on above: Performed By: #### 8 9579-7, 75546-3, 5643-2, 39565-9, LIVR, 3040-3, CBCA, BMP #### [facility] ([id number]) [address] [place] [address] 72474 Sodium [Moles/Vol] 137 mmol/L Normal 134-146 [facility] Comment on above: Performed By: #### 8 9579-7, 65358-2, 5643-2, 01008-8, LIVR, 3040-3, CBCA, BMP #### [facility] ([id number]) [address] [place] [address] 28839 Urea nitrogen [Mass/Vol] 10 mg/dL Normal 5-23 [facility] Comment on above: Performed By: #### 8 9579-7, 43269-3, 5643-2, 29185-2, LIVR, 3040-3, CBCA, BMP #### [facility] ([id number]) [address] [facility], [place] [address] LIPASEon 08-10-2024 Lipase [Catalytic activity/Vol] 138 U/L High 17-40 [facility] Comment on above: Performed By: #### 8 9579-7, 14357-0, 5643-2, 48659-2, LIVR, 3040-3, CBCA, BMP #### [facility] ([id number]) [address] [facility], [place] [address] CBC with Auto Differentialon 08-08-2024 Basophils (Bld) [...] [facility] Monocytes/100 WBC (Bld) 0.88 % [facility] Neutrophils/100 WBC (Bld) 58 % 36 - 65 % [facility] Nucleated RBC/100 WBC (Bld) [Ratio] 0 % 0.0 per 100 WBC [facility] Platelet mean volume (Bld) [Entitic vol] 9.5 fL 8.1 - 13.5 fL [facility] Platelets (Bld) [#/Vol] 265 10*3/uL [facility] RBC (Bld) [#/Vol] 4.46 10*6/uL 3.95 - 5.11 m/uL [facility] Segmented neutrophils/100 WBC (Bld) 5.99 % [facility] WBC other (Bld) [#/Vol] 10.3 [facility] CBC with Diffon 08-08-2024 Abs. Basophil 0.11 k/uL Normal 0.00-0.[address] [facility] Comment on above: Performed By: #### B MP, LIVP, LIP #### [facility] [address] [place] [address] Dr. [place], [facility]83 Quality Assurance Lead: Ion Jasso MD Abs.Imm.Granulocyte 0.04 k/uL Normal 0.00-0.30 [facility] Comment on above: Performed By: #### B MP LIVP, LIP #### [address] [place], [facility]83 Quality Assurance Lead: Ion Jasso MD Abs.Neutrophil (Seg) 5.99 k/uL Normal 1.50-8.10 [facility] Comment on above: Performed By: #### B MP LIVP, LIP #### [address] [place] [address] Quality Assurance Lead: Ion Jasso MD Basophils/100 WBC (Bld) 1 % Normal 0-2 [facility] Comment on above: Performed By: #### B MP, LIVP, LIP #### [facility] [address] [place], [place] [phone] Quality Assurance Lead: Ion Jasso MD Eosinophils (Bld) [#/Vol] 0.17 10*3/uL Normal 0.00-0.44 [facility] Comment on above: Performed By: #### B MP, LIVP, LIP #### [address] [place], [place] [phone] Quality Assurance Lead: Ion Jasso MD Eosinophils/100 WBC (Bld) 2 % Normal 1-4 [facility] Comment on above: Performed By: #### B MP, LIVP, LIP #### [address] [place], [place] [phone] Quality Assurance Lead: Ion Jasso MD Erythrocyte distribution width (RBC) [Ratio] 12.5 % Normal 11.8-14.4 [facility] Comment on above: Performed By: #### B MP, LIVP, LIP #### [address] [place], [place] [phone] Quality Assurance Lead: Ion Jasso MD Hematocrit (Bld) [Volume fraction] 44.1 % Normal 36.3-47.1 [facility] Comment on above: Performed By: #### B MP, LIVP, LIP #### [address] [place], [place] [phone] Quality Assurance Lead: Ion Jasso MD Hemoglobin (Bld) [Mass/Vol] 14.9 g/dL Normal 11.9-15.1 [facility] Comment on above: Performed By: #### B MP, LIVP, LIP #### [address] [place], [place] 5151783 Quality Assurance Lead: Ion Jasso MD Immature granulocytes/100 WBC (Bld) 0 % Normal 0 [facility] Comment on above: Performed By: #### B MP, LIVP, LIP #### [address] [place], [place] 4998983 Quality Assurance Lead: Ion Jasso MD Lymphocytes (Bld) [#/Vol] 3.09 10*3/uL Normal 1.10-3.70 [facility] Comment on above: Performed By: #### B MP, LIVP, LIP #### [facility] [address] [place] [phone] Quality Assurance Lead: Ion Jasso MD Lymphocytes/100 WBC (Bld) 30 % Normal 24-43 [facility] Comment on above: Performed By: #### B MP, LIVP, LIP #### [facility] [address] [place] [phone] Quality Assurance Lead: Ion Jasso MD MCH (RBC) [Entitic mass] 33.4 pg Normal 25.2-33.5 [facility] Comment on above: Performed By: #### B MP, LIVP, LIP #### [address] [place], [facility]83 Quality Assurance Lead: Ion Jasso MD MCHC (RBC) [Mass/Vol] 33.8 g/dL Normal 28.4-34.8 [facility] Comment on above: Performed By: #### B MP, LIVP, LIP #### [address] [place] [phone] Quality Assurance Lead: Ion Jasso MD MCV (RBC) [Entitic vol] 98.9 fL Normal 82.6-102.9 [facility] Comment on above: Performed By: #### B MP, LIVP, LIP #### [address] [place], [place] [phone] Quality Assurance Lead: Ion Jasso MD Monocytes (Bld) [#/Vol] 0.88 10*3/uL Normal 0.10-1.20 [facility] Comment on above: Performed By: #### B MP, LIVP, LIP #### [address] [place] [address] Quality Assurance Lead: Ion Jasso MD Monocytes/100 WBC (Bld) 9 % Normal 3-12 [facility] Comment on above: Performed By: #### B MP, LIVP, LIP #### [facility] [address] [place] [address] Quality Assurance Lead: Ion Jasso MD Neutrophil (Seg) 58 % Normal 36-65 [facility] Comment on above: Performed By: #### B MP, LIVP, LIP #### [facility] [address] [place] [address] Quality Assurance Lead: Ion Jasso MD NRBC Automated 0.0 per 100 WBC Normal 0.0 [facility] Comment on above: Performed By: #### B MP, LIVP, LIP #### [facility] [address] [place] [address] Quality Assurance Lead: Ion Jasso MD Platelet mean volume (Bld) [Entitic vol] 9.5 fL Normal 8.1-13.5 [facility] Comment on above: Performed By: #### B MP, LIVP, LIP #### [facility] [address] [place] [address] Quality Assurance Lead: Ion Jasso MD Platelets (Bld) [#/Vol] 265 10*3/uL Normal 138-453 [facility] Comment on above: Performed By: #### B MP, LIVP, LIP #### [facility] [address] [place] [address] Quality Assurance Lead: Ion Jasso MD RBC (Bld) [#/Vol] 4.46 10*6/uL Normal 3.95-5.11 [facility] Comment on above: Performed By: #### B MP, LIVP, LIP #### [facility] [address] [place] [address] Quality Assurance Lead: Ion Jasso MD WBC (Bld) [#/Vol] 10.3 10*3/uL Normal 3.5-11.3 [facility] Comment on above: Performed By: #### B NANCY MEDEL LIP #### [facility] [address] [place] [address] Quality Assurance Lead: [facility] Albumin [Mass/Vol] 4.3 g/dL 3.5 - 5.2 g/dL [facility] Albumin/Globulin [Mass ratio] 1.5 {ratio} 1.0 - 2.5 [facility] ALP [Catalytic activity/Vol] 142 U/L High 35 - 104 U/L [facility] ALT [Catalytic activity/Vol] 9 U/L Low 10 - 35 U/L [facility] Anion gap [Moles/Vol] 12 mmol/L 9 - 16 mmol/L [facility] AST [Catalytic activity/Vol] 21 U/L 10 - 35 U/L [facility] Bilirubin [Mass/Vol] mg/dL 0.00 - 1.20 mg/dL [facility] Calcium [Mass/Vol] 10.2 mg/dL 8.6 - 10. 4 mg/dL [facility] Chloride [Moles/Vol] 103 mmol/L 98 - 10 7 mmol/L [facility] CO2 [Moles/Vol] 24 mmol/L 20 - 31 mmol/L [facility] Creatinine [Mass/Vol] 0.8 mg/dL 0.50 - 0.90 mg/dL [facility] Est, Glom Filt Rate 81 - PINF [facility] Comment on above: These results [...] [Mass/Vol] 86 mg/dL 74 - 99 mg/dL [facility] Potassium [Moles/Vol] 4.5 mmol/L 3.7 - 5.3 mmol/L [facility] Protein [Mass/Vol] 7.3 g/dL 6.6 - 8.7 g/dL [facility] Sodium [Moles/Vol] 139 mmol/L 136 - 145 mmol/L [facility] Urea nitrogen [Mass/Vol] 16 mg/dL 6 - 20 mg/dL [facility] Urea nitrogen/Creatinine [Mass ratio] 20 mg/mg 9 - 20 [facility] Comp Metabolic Profon 2024 Albumin [Mass/Vol] 4.3 g/dL Normal 3.5-5.2 [facility] Comment on above: Performed By: #### B MP, LIVP, LIP #### [facility] [address] [place] [address] Quality Assurance Lead: Ion Jasso MD Albumin/Glob Ratio 1.5 Normal 1.0-2.5 [facility] Comment on above: Performed By: #### B MP, LIVP, LIP #### [facility] [address] [place] [address] Quality Assurance Lead: Ion Jasso MD Alkaline Phos 142 U/L High 35-[address] [facility] Comment on above: Performed By: #### B MP, LIVP, LIP #### [facility] [address] [place], [place] 4347183 Quality Assurance Lead: Ion Jasso MD ALT [Catalytic activity/Vol] 9 U/L Low 10-35 [facility] Comment on above: Performed By: #### B MP, LIVP, LIP #### [facility] [address] [place] [address] Quality Assurance Lead: Ion Jasso MD Anion gap [Moles/Vol] 12 mmol/L Normal 9-16 [facility] Comment on above: Performed By: #### B MP, LIVP, LIP #### [facility] [address] [place], [place] 7276383 Quality Assurance Lead: Ion Jasso MD AST [Catalytic activity/Vol] 21 U/L Normal 10-35 [facility] Comment on above: Performed By: #### B MP, LIVP, LIP #### [facility] [address] [place], [place] [phone] Quality Assurance Lead: Ion Jasso MD Bilirubin [Mass/Vol] mg/dL Normal 0.00-1.20 [facility] Comment on above: Performed By: #### B MP, LIVP, LIP #### [facility] [address] [place], [place] [phone] Quality Assurance Lead: Ion Jasso MD BUN/CRE Ratio 20 Normal 9-[address] [facility] Comment on above: Performed By: #### B MP, LIVP, LIP #### [facility] [address] [place] [address] Dr. [place], [place] 5777483 Quality Assurance Lead: Ion Jasso MD Calcium [Mass/Vol] 10.2 mg/dL Normal 8.6-10.4 [facility] Comment on above: Performed By: #### B MP, LIVP, LIP #### [address] [place], [place] 7808383 Quality Assurance Lead: Ion Jasso MD Chloride [Moles/Vol] 103 mmol/L Normal 98-107 [facility] Comment on above: Performed By: #### B MP, LIVP, LIP #### [facility] [address] [place], [place] 3355483 Quality Assurance Lead: Ion Jasso MD CO2 [Moles/Vol] 24 mmol/L Normal 20-31 [facility] Comment on above: Performed By: #### B MP, LIVP, LIP #### [facility] [address] [place], [place] 1105783 Quality Assurance Lead: Ion Jasso MD Creatinine [Mass/Vol] 0.8 mg/dL Normal 0.50-0.90 [facility] Comment on above: Performed By: #### B MP, LIVP, LIP #### [facility] [address] [place] [address] Quality Assurance Lead: Ion Jasso MD GFR/1.73 sq M.predicted among non-blacks MDRD (S/P/Bld) [Vol rate/Area] 81 mL/min/{1.73_m2} Normal >60 [facility] Comment on above: Result Comment: These [...] By: #### B MP, LIVP, LIP #### [facility] [address] [place], [place] 9152683 Quality Assurance Lead: Ion Jasso MD Glucose [Mass/Vol] 86 mg/dL Normal 74-99 [facility] Comment on above: Performed By: #### B MP, LIVP, LIP #### [facility] [address] [place] [address] Quality Assurance Lead: Ion Jasso MD Potassium [Moles/Vol] 4.5 mmol/L Normal 3.7-5.3 [facility] Comment on above: Performed By: #### B MP, LIVP, LIP #### [facility] [address] [place], [place] 0954683 Quality Assurance Lead: Ion Jasso MD Protein [Mass/Vol] 7.3 g/dL Normal 6.6-8.7 [facility] Comment on above: Performed By: #### B MP, LIVP, LIP #### [facility] [address] [place], [place] 7172183 Quality Assurance Lead: Ion Jasso MD Sodium [Moles/Vol] 139 mmol/L Normal 136-145 [facility] Comment on above: Performed By: #### B LIZY LIVP, LIP #### [facility] [address] [place] [address] Quality Assurance Lead: Ion Jasso MD Urea nitrogen [Mass/Vol] 16 mg/dL Normal 6-20 [facility] Comment on above: Performed By: #### B LIZY LIVP, LIP #### [facility] [address] [place], [place] 9172683 Quality Assurance Lead: Ion Jasso MD Lactic Acidon 08-08-2024 Lactate (BldV) [Moles/Vol] 1.2 mmol/L 0.5 - 2.2 mmol/L [facility] Lactate [Moles/Vol] 1.2 mmol/L Normal 0.5-2.2 [facility] Comment on above: Performed By: #### B LIZY LIVP, LIP #### [facility] [address] [place] [address] Quality Assurance Lead: Ion Jasso MD Lipaseon 08-08-2024 Lipase [Catalytic activity/Vol] 109 U/L High 13 - 60 U/L [facility] Lipase [Catalytic activity/Vol] 109 U/L High 13-60 [facility] Comment on above: Performed By: #### B LIZY LIVP, LIP #### [facility] [address] [place] [address] Quality Assurance Lead: Ion Jasso MD Magnesiumon 08-08-2024 Magnesium [Mass/Vol] 2.4 mg/dL 1.6 - 2 .6 mg/dL [facility] Magnesium [Mass/Vol] 2.4 mg/dL Normal 1.6-2.6 [facility] Comment on above: Performed By: #### B LIZY LIVP, LIP #### [facility] [address] [place], [place] 1672183 Quality Assurance Lead: Ion Jasso MD Microscopic Urinalysison Bacteria LM Ql (Urine sed) 1+ Abnormal None [facility] Epithelial cells LM.HPF (Urine sed) [#/Area] 10 TO 20 [facility] Interpretation and review of laboratory results Abnormal [facility] Mucus Ql (Urine sed) TRACE Abnormal None [facility] RBC LM.HPF (Urine sed) [#/Area] 0 TO 2 [facility] WBC LM.HPF (Urine sed) [#/Area] 0 TO 2 [facility] No Panel Informationon 08-08 Interpretation and review of laboratory results Abnormal [facility] UA w/Reflex Cultureon 2024 Clarity (U) SLIGHTLY CLOUDY Abnormal CLEAR [facility] Comment on above: Performed By: #### L WALTER ROONEY, CP #### [address] [place] [phone] Quality Assurance Lead: Ion Jasso MD Color (U) Yellow Normal YEL [facility] Comment on above: Performed By: #### L IP CDP, CP #### [address] [place] [phone] Quality Assurance Lead: Ion Jasso MD Leukocyte esterase Test strip Ql (U) Negative Normal NEG [facility] Comment on above: Performed By: #### L TORIBIO CDP, CP #### [address] [place] [address] Quality Assurance Lead: Ion Jasso MD Bilirubin, SemiQt,Ur Negative Normal NEG [facility] Comment on above: Performed By: #### L IP, CDP, CP #### [address] [place] [address] Quality Assurance Lead: Ion Jasso MD Blood, Urine Negative Normal NEG [facility] Comment on above: Performed By: #### L IP, CDP, CP #### [facility] [address] [place] [address] Dr. [place], [place] 0765783 Quality Assurance Lead: Ion Jasso MD Glucose Ql (U) Negative Normal NEG [facility] Comment on above: Performed By: #### L IP, CDP, CP #### [facility] [address] [place] [address] Dr. [place], [place] 4117783 Quality Assurance Lead: Ion Jasso MD Ketones Ql (U) Negative Normal NEG [facility] Comment on above: Performed By: #### L IP, CDP, CP #### [facility] [address] [place] [address] [place] [address] Quality Assurance Lead: Ion Jasso MD Nitrite,Ur Negative Normal NEG [facility] Comment on above: Performed By: #### L IP, CDP, CP #### [facility] [address] [place] [address] Dr. [place], [place] [address] Quality Assurance Lead: Ion Jasso MD PH,Ur 6.0 Normal 5.0-9.0 [facility] Comment on above: Performed By: #### L IP, CDP, CP #### [address] [place], [place] [address] Quality Assurance Lead: Ion Jasso MD Protein Ql (U) Negative Normal NEG [facility] Comment on above: Performed By: #### L IP, CDP, CP #### [facility] [address] [place] [address] Dr. [place], [place] [address] Quality Assurance Lead: Ion Jasso MD Spec. [place],Ur 1.020 Normal 1.010-1.02 0 [facility] Comment on above: Performed By: #### L IP, CDP, CP #### [address] [place], [place] 3088383 Quality Assurance Lead: Ion Jasso MD Urobilinogen,Ur Normal Normal 0.0-1.0 [facility] Comment on above: Performed By: #### L IP, WALTER, CP #### [facility] [address] [place] [address] Quality Assurance Lead: Ion Jasso MD Urinalysis with Reflex to Cu ltureon 08-08-2024 Bilirubin Ql (U) Negative NEGATIVE [facility] Glucose Test strip (U) [Mass/Vol] Negative NEGATIVE mg/dL [facility] Hemoglobin Auto test strip Ql (U) Negative NEGATIVE [facility] Interpretation and review of laboratory results Abnormal [facility] Ketones (U) [Mass/Vol] Negative NEGAT MATTHIAS mg/dL [facility] Nitrite Ql (U) Negative NEGATIVE [facility] pH (U) 6 [pH] 5.0 - 9.0 [facility] Protein (U) [Mass/Vol] Negative NEGAT MATTHIAS mg/dL [facility] Specific gravity (U) [Rel density] 1.02 1.010 - 1.020 [facility] Urobilinogen Qn (U) Normal 0.0 - 1. 0 EU/dL [facility] Urinalysis,Microon 5 Amorphous sediment LM Ql (Urine sed) TRACE Abnormal NONE [facility] Comment on above: Performed By: #### L TORIBIO, CDP, CP #### [facility] [address] [place] [address] [place] [address] Quality Assurance Lead: Ion Jasso MD Bacteria 1+ Abnormal [facility] Comment on above: Performed By: #### L WALTER ROONEY, CP #### [facility] [address] [place] [address] Quality Assurance Lead: Ion Jasso MD Epithelial cells LM Ql (Urine sed) 10 TO 20 Normal 0-25 [facility] Comment on above: Performed By: #### L TORIBIO, CDP, CP #### [facility] [address] [place] [address] Quality Assurance Lead: Ion Jasso MD Mucus Strands TRACE Abnormal NONE [facility] Comment on above: Performed By: #### L IP, CDP, CP #### [facility] [address] [place] [address] Quality Assurance Lead: Ion Jasso MD Urine RBC's 0 TO 2 Normal 0-2 [facility] Comment on above: Performed By: #### L IP, CDP, CP #### [facility] [address] [place] [address] Quality Assurance Lead: Ion Jasso MD Urine WBC's 0 TO 2 Normal 0-5 [facility] Comment on above: Performed By: #### L IP, CDP, CP #### [facility] [address] [place] [address] Quality Assurance Lead: Ion Jasso MD CBC AND AUTO DIFFon 06-28-19 25 ABSOLUTE BASOPHIL 0.1 X10E9/L Normal 0.0-0.2 [facility] Comment on above: Performed By: #### 8 9579-7, 46371-0, 5643-2, 97886-6, LIVR, 3040-3, CBCA, BMP #### [facility] ([id number]) [address] [place] [address] ABSOLUTE NEUTROPHIL 4.9 X10E9/L Normal 1.5-6.6 [facility] Comment on above: Performed By: #### 8 9579-7, 09134-3, 5643-2, 63857-4, LIVR, 3040-3, CBCA, BMP #### [facility] ([id number]) [address] [place] [address] Basophils/100 WBC (Bld) 1.2 % Normal [facility] Comment on above: Performed By: #### 8 9579-7, 82708-5, 5643-2, 20462-1, LIVR, 3040-3, CBCA, BMP #### [facility] ([id number]) [address] [place] [address] 58368 Eosinophils (Bld) [#/Vol] 0.1 10*3/uL Normal 0.0-0.4 [facility] Comment on above: Performed By: #### 8 9579-7, 87007-7, 5643-2, 21434-3, LIVR, 3040-3, CBCA, BMP #### [facility] ([id number]) [address] [place] [address] 71576 Eosinophils/100 WBC (Bld) 1.3 % Normal [facility] Comment on above: Performed By: #### 8 9579-7, 65353-8, 5643-2, 81542-5, LIVR, 3040-3, CBCA, BMP #### [facility] ([id number]) [address] [place] [address]2859 Erythrocyte distribution width (RBC) [Ratio] 13.1 % Normal 11.5-15.0 [facility] Comment on above: Performed By: #### 8 9579-7, 45927-2, 5643-2, 26256-7, LIVR, 3040-3, CBCA, BMP #### [facility] ([id number]) [address] [place] [address] 09422 Hematocrit (Bld) [Volume fraction] 40.9 % Normal 35-47 [facility] Comment on above: Performed By: #### 8 9579-7, 20717-6, 5643-2, 97005-9, LIVR, 3040-3, CBCA, BMP #### [facility] ([id number]) [address] [place] [address] 48042 Hemoglobin (Bld) [Mass/Vol] 14.3 g/dL Normal 11.7-15.5 [facility] Comment on above: Performed By: #### 8 9579-7, 67918-6, 5643-2, 17836-3, LIVR, 3040-3, CBCA, BMP #### [facility] ([id number]) [address] [place] [address] 37092 Lymphocytes (Bld) [#/Vol] 2.3 10*3/uL Normal 1.0-3.5 [facility] Comment on above: Performed By: #### 8 9579-7, 50672-4, 5643-2, 08578-0, LIVR, 3040-3, CBCA, BMP #### [facility] ([id number]) [address] [place] [address] 57995 Lymphocytes/100 WBC (Bld) 27.6 % Normal [facility] Comment on above: Performed By: #### 8 9579-7, 93571-0, 5643-2, 52114-5, LIVR, 3040-3, CBCA, BMP #### [facility] ([id number]) [address] [place] [address] 61645 MCH (RBC) [Entitic mass] 34.2 pg High 27-34 [facility] Comment on above: Performed By: #### 8 9579-7, 12960-1, 5643-2, 91554-1, LIVR, 3040-3, CBCA, BMP #### [facility] ([id number]) [address] [place] [address] 69173 MCHC (RBC) [Mass/Vol] 35.0 g/dL Normal 32-36 [facility] Comment on above: Performed By: #### 8 9579-7, 74649-6, 5643-2, 70871-0, LIVR, 3040-3, CBCA, BMP #### [facility] ([id number]) [address] [place] [address] 61172 MCV (RBC) [Entitic vol] 98 fL Normal 80-100 [facility] Comment on above: Performed By: #### 8 9579-7, 27900-4, 5643-2, 19232-4, LIVR, 3040-3, CBCA, BMP #### [facility] ([id number]) [address] [place] [address] 94128 Monocytes (Bld) [#/Vol] 1.0 10*3/uL High 0-0.9 [facility] Comment on above: Performed By: #### 8 9579-7, 39864-6, 5643-2, 04915-4, LIVR, 3040-3, CBCA, BMP #### [facility] ([id number]) [address] [place] [address] 35147 Monocytes/100 WBC (Bld) 11.4 % Normal [facility] Comment on above: Performed By: #### 8 9579-7, 45492-8, 5643-2, 28363-0, LIVR, 3040-3, CBCA, BMP #### [facility] ([id number]) [address] [place] [address] 25051 Neutrophils/100 WBC (Bld) 58.5 % Normal [facility] Comment on above: Performed By: #### 8 9579-7, 06310-9, 5643-2, 00270-1, LIVR, 3040-3, CBCA, BMP #### [facility] ([id number]) [address] [place] [address] 83479 Platelet mean volume (Bld) [Entitic vol] 7.9 fL Normal 7-12 [facility] Comment on above: Performed By: #### 8 9579-7, 04814-1, 5643-2, 72223-8, LIVR, 3040-3, CBCA, BMP #### [facility] ([id number]) [address] [place] [address] 65220 Platelets (Bld) [#/Vol] 267 10*3/uL Normal 150-450 [facility] Comment on above: Performed By: #### 8 9579-7, 20912-0, 5643-2, 15778-6, LIVR, 3040-3, CBCA, BMP #### [facility] ([id number]) [address] [place] [address] 61049 RBC COUNT 4.18 X10E12/L Normal 3.80-5.20 [facility] Comment on above: Performed By: #### 8 9579-7, 47235-7, 5643-2, 20357-6, LIVR, 3040-3, CBCA, BMP #### [facility] ([id number]) [address] [place] [address] 87356 WBC (Bld) [#/Vol] 8.4 10*3/uL Normal 4.0-11.0 [facility] Comment on above: Performed By: #### 8 9579-7, 87893-4, 5643-2, 03474-0, LIVR, 3040-3, CBCA, BMP #### [facility] ([id number]) [address] [place] [address] 69741 COMPREHENSIVE METABOLIC PANE Nimesh 06-27-2024 Albumin [Mass/Vol] 4.1 g/dL Normal 3.2-5.3 [facility] Comment on above: Performed By: #### 8 9579-7, 47201-5, 5643-2, 71133-3, LIVR, 3040-3, CBCA, BMP #### [facility] ([id number]) [address] [place] [address] 46249 ALP [Catalytic activity/Vol] 133 U/L High 39-130 [facility] Comment on above: Performed By: #### 8 9579-7, 12439-0, 5643-2, 38241-8, LIVR, 3040-3, CBCA, BMP #### [facility] ([id number]) [address] [place] [address] 33850 ALT [Catalytic activity/Vol] 14 U/L Normal 0-31 [facility] Comment on above: Performed By: #### 8 9579-7, 09974-7, 5643-2, 89315-4, LIVR, 3040-3, CBCA, BMP #### [facility] ([id number]) [address] [place] [address] 69697 Anion gap [Moles/Vol] 8 mmol/L Normal 5-15 [facility] Comment on above: Performed By: #### 8 9579-7, 38087-2, 5643-2, 77686-2, LIVR, 3040-3, CBCA, BMP #### [facility] ([id number]) [address] [place] [address] 25187 AST [Catalytic activity/Vol] 19 U/L Normal 0-41 [facility] Comment on above: Performed By: #### 8 9579-7, 10399-6, 5643-2, 12802-5, LIVR, 3040-3, CBCA, BMP #### [facility] ([id number]) [address] [place] [address] 65298 Bilirubin [Mass/Vol] 0.3 mg/dL Normal 0.3-1.2 [facility] Comment on above: Performed By: #### 8 9579-7, 08164-6, 5643-2, 07316-1, LIVR, 3040-3, CBCA, BMP #### [facility] ([id number]) [address] [place] [address] 34420 Calcium [Mass/Vol] 10.7 mg/dL High 8.5-10.5 [facility] Comment on above: Performed By: #### 8 9579-7, 38767-9, 5643-2, 14150-1, LIVR, 3040-3, CBCA, BMP #### [facility] ([id number]) [address] [place] [address] 85770 Chloride [Moles/Vol] 104 mmol/L Normal 98-109 [facility] Comment on above: Performed By: #### 8 9579-7, 48455-5, 5643-2, 70602-9, LIVR, 3040-3, CBCA, BMP #### [facility] ([id number]) [address] [place] [address] 75678 CO2 [Moles/Vol] 26 mmol/L Normal 22-32 [facility] Comment on above: Performed By: #### 8 9579-7, 51263-7, 5643-2, 97708-5, LIVR, 3040-3, CBCA, BMP #### [facility] ([id number]) [address] [place] [address] 61062 Creatinine [Mass/Vol] 0.76 mg/dL Normal 0.40-1.00 [facility] Comment on above: Result Comment: METH OD TRACEABLE TO IDMS STANDARD Performed By: #### 8 9579-7, 35202-8, 5643-2, 37714-9, LIVR, 3040-3, CBCA, BMP #### [facility] ([id number]) [address] [place] [address] [place] [address] eGFR (CKD-EPI) NON-RACE DEPENDENT >90 Normal >59 [facility] Comment on above: Result Comment: Reported eGFR is based on the CKD-EPI 2020 equation that does not use a race coefficient. Performed By: #### 8 9579-7, 99811-9, 5643-2, 09465-0, LIVR, 3040-3, CBCA, BMP #### [facility] ([id number]) [address] [place] [address] 88590 Glucose [Mass/Vol] 106 mg/dL High 65-99 [facility] Comment on above: Performed By: #### 8 9579-7, 02844-2, 5643-2, 86721-4, LIVR, 3040-3, CBCA, BMP #### [facility] ([id number]) [address] [place] [address] 23588 Potassium [Moles/Vol] 3.9 mmol/L Normal 3.5-5.0 [facility] Comment on above: Performed By: #### 8 9579-7, 27705-5, 5643-2, 38604-3, LIVR, 3040-3, CBCA, BMP #### [facility] ([id number]) [address] [place] [address] 96596 Protein [Mass/Vol] 7.0 g/dL Normal 6.0-8.0 [facility] Comment on above: Performed By: #### 8 9579-7, 55598-9, 5643-2, 51020-7, LIVR, 3040-3, CBCA, BMP #### [facility] ([id number]) [address] [place] [address] 23018 Sodium [Moles/Vol] 138 mmol/L Normal 134-146 [facility] Comment on above: Performed By: #### 8 9579-7, 89877-8, 5643-2, 35373-4, LIVR, 3040-3, CBCA, BMP #### [facility] ([id number]) [address] [place] [address] 02225 Urea nitrogen [Mass/Vol] 10 mg/dL Normal 5-23 [facility] Comment on above: Performed By: #### 8 9579-7, 80719-7, 5643-2, 45862-8, LIVR, 3040-3, CBCA, BMP #### [facility] ([id number]) [address] [place] [address] 91744 LIPASEon 06-27-2024 Lipase [Catalytic activity/Vol] 37 U/L Normal 17-40 [facility] Comment on above: Performed By: #### 8 9579-7, 80074-5, 5643-2, 11843-9, LIVR, 3040-3, CBCA, BMP #### [facility] ([id number]) [address] [place] [address] 78480 BASIC METABOLIC PANLon 06-15 Anion gap [Moles/Vol] 8 mmol/L Normal 5-15 [facility] Comment on above: Performed By: #### 8 9579-7, 09315-5, 5643-2, 44824-1, LIVR, 3040-3, CBCA, BMP #### [facility] ([id number]) [address] [place] [address] 45819 Calcium [Mass/Vol] 9.7 mg/dL Normal 8.5-10.5 [facility] Comment on above: Performed By: #### 8 9579-7, 88620-0, 5643-2, 17678-5, LIVR, 3040-3, CBCA, BMP #### [facility] ([id number]) [address] [place] [address] 84333 Chloride [Moles/Vol] 105 mmol/L Normal 98-109 [facility] Comment on above: Performed By: #### 8 9579-7, 23661-3, 5643-2, 90421-3, LIVR, 3040-3, CBCA, BMP #### [facility] ([id number]) [address] [place] [address] 87350 CO2 [Moles/Vol] 24 mmol/L Normal 22-32 [facility] Comment on above: Performed By: #### 8 9579-7, 64387-2, 5643-2, 95138-0, LIVR, 3040-3, CBCA, BMP #### [facility] ([id number]) [address] [place] [address] 95379 Creatinine [Mass/Vol] 0.78 mg/dL Normal 0.40-1.00 [facility] Comment on above: Result Comment: METH OD TRACEABLE TO IDMS STANDARD Performed By: #### 8 9579-7, 11933-7, 5643-2, 46727-5, LIVR, 3040-3, CBCA, BMP #### [facility] ([id number]) [address] [place] [address] 41196 eGFR (CKD-EPI) NON-RACE DEPENDENT >90 Normal >59 [facility] Comment on above: Result Comment: Reported eGFR is based on the CKD-EPI 2020 equation that does not use a race coefficient. Performed By: #### 8 9579-7, 49746-7, 5643-2, 17531-9, LIVR, 3040-3, CBCA, BMP #### [facility] ([id number]) [address] [place] [address] 05299 Glucose [Mass/Vol] 97 mg/dL Normal 65-99 [facility] Comment on above: Performed By: #### 8 9579-7, 36224-3, 5643-2, 68269-7, LIVR, 3040-3, CBCA, BMP #### [facility] ([id number]) [address] [place] [address] 49673 Potassium [Moles/Vol] 3.3 mmol/L Low 3.5-5.0 [facility] Comment on above: Performed By: #### 8 9579-7, 96086-5, 5643-2, 70964-4, LIVR, 3040-3, CBCA, BMP #### [facility] ([id number]) [address] [place] [address] 16459 Sodium [Moles/Vol] 137 mmol/L Normal 134-146 [facility] Comment on above: Performed By: #### 8 9579-7, 27646-5, 5643-2, 21707-7, LIVR, 3040-3, CBCA, BMP #### [facility] ([id number]) [address] [place] [address] 92174 Urea nitrogen [Mass/Vol] 9 mg/dL Normal 5-23 [facility] Comment on above: Performed By: #### 8 9579-7, 10157-7, 5643-2, 35196-8, LIVR, 3040-3, CBCA, BMP #### [facility] ([id number]) [address] [place] [address] 19458 CBC AND AUTO DIFFon 06-16-19 25 ABSOLUTE BASOPHIL 0.1 X10E9/L Normal 0.0-0.2 [facility] Comment on above: Performed By: #### 8 9579-7, 86121-6, 5643-2, 32734-6, LIVR, 3040-3, CBCA, BMP #### [facility] ([id number]) [address] [place] [address] 31525 ABSOLUTE NEUTROPHIL 6.2 X10E9/L Normal 1.5-6.6 [facility] Comment on above: Performed By: #### 8 9579-7, 41729-8, 5643-2, 60316-7, LIVR, 3040-3, CBCA, BMP #### [facility] ([id number]) [address] [place] [address] 28376 Basophils/100 WBC (Bld) 0.9 % Normal [facility] Comment on above: Performed By: #### 8 9579-7, 60278-1, 5643-2, 48996-0, LIVR, 3040-3, CBCA, BMP #### [facility] ([id number]) [address] [place] [address] 68826 Eosinophils (Bld) [#/Vol] 0.1 10*3/uL Normal 0.0-0.4 [facility] Comment on above: Performed By: #### 8 9579-7, 02735-1, 5643-2, 76851-5, LIVR, 3040-3, CBCA, BMP #### [facility] ([id number]) [address] [place] [address] 56511 Eosinophils/100 WBC (Bld) 1.1 % Normal [facility] Comment on above: Performed By: #### 8 9579-7, 06127-7, 5643-2, 48219-2, LIVR, 3040-3, CBCA, BMP #### [facility] ([id number]) [address] [place] [address] 64454 Erythrocyte distribution width (RBC) [Ratio] 13.3 % Normal 11.5-15.0 [facility] Comment on above: Performed By: #### 8 9579-7, 43142-0, 5643-2, 46745-5, LIVR, 3040-3, CBCA, BMP #### [facility] ([id number]) [address] [place] [address] 37227 Hematocrit (Bld) [Volume fraction] 42.3 % Normal 35-47 [facility] Comment on above: Performed By: #### 8 9579-7, 95022-2, 5643-2, 76555-6, LIVR, 3040-3, CBCA, BMP #### [facility] ([id number]) [address] [place] [address] 84317 Hemoglobin (Bld) [Mass/Vol] 14.3 g/dL Normal 11.7-15.5 [facility] Comment on above: Performed By: #### 8 9579-7, 28405-3, 5643-2, 67344-4, LIVR, 3040-3, CBCA, BMP #### [facility] ([id number]) [address] [place] [address] 53959 Lymphocytes (Bld) [#/Vol] 2.6 10*3/uL Normal 1.0-3.5 [facility] Comment on above: Performed By: #### 8 9579-7, 47926-7, 5643-2, 14258-0, LIVR, 3040-3, CBCA, BMP #### [facility] ([id number]) [address] [place] [address] 93167 Lymphocytes/100 WBC (Bld) 26.2 % Normal [facility] Comment on above: Performed By: #### 8 9579-7, 85136-4, 5643-2, 32429-2, LIVR, 3040-3, CBCA, BMP #### [facility] ([id number]) [address] [place] [address] 81408 MCH (RBC) [Entitic mass] 33.5 pg Normal 27-34 [facility] Comment on above: Performed By: #### 8 9579-7, 14929-6, 5643-2, 12496-3, LIVR, 3040-3, CBCA, BMP #### [facility] ([id number]) [address] [place] [address] 06154 MCHC (RBC) [Mass/Vol] 33.8 g/dL Normal 32-36 [facility] Comment on above: Performed By: #### 8 9579-7, 96972-0, 5643-2, 47096-5, LIVR, 3040-3, CBCA, BMP #### [facility] ([id number]) [address] [place] [address] 04586 MCV (RBC) [Entitic vol] 99 fL Normal 80-100 [facility] Comment on above: Performed By: #### 8 9579-7, 79152-9, 5643-2, 72504-4, LIVR, 3040-3, CBCA, BMP #### [facility] ([id number]) [address] [place] [address] 37382 Monocytes (Bld) [#/Vol] 0.8 10*3/uL Normal 0-0.9 [facility] Comment on above: Performed By: #### 8 9579-7, 60171-5, 5643-2, 42507-5, LIVR, 3040-3, CBCA, BMP #### [facility] ([id number]) [address] [place] [address] 25085 Monocytes/100 WBC (Bld) 8.3 % Normal [facility] Comment on above: Performed By: #### 8 9579-7, 51276-1, 5643-2, 45017-6, LIVR, 3040-3, CBCA, BMP #### [facility] ([id number]) [address] [place] [address] 00446 Neutrophils/100 WBC (Bld) 63.5 % Normal [facility] Comment on above: Performed By: #### 8 9579-7, 17137-9, 5643-2, 88953-0, LIVR, 3040-3, CBCA, BMP #### [facility] ([id number]) [address] [place] [address] 16952 Platelet mean volume (Bld) [Entitic vol] 8.0 fL Normal 7-12 [facility] Comment on above: Performed By: #### 8 9579-7, 65807-9, 5643-2, 94454-6, LIVR, 3040-3, CBCA, BMP #### [facility] ([id number]) [address] [place] [address] 45765 Platelets (Bld) [#/Vol] 263 10*3/uL Normal 150-450 [facility] Comment on above: Performed By: #### 8 9579-7, 27520-7, 5643-2, 04989-3, LIVR, 3040-3, CBCA, BMP #### [facility] ([id number]) [address] [place] [address] 42155 RBC COUNT 4.28 X10E12/L Normal 3.80-5.20 [facility] Comment on above: Performed By: #### 8 9579-7, 66323-6, 5643-2, 55221-9, LIVR, 3040-3, CBCA, BMP #### [facility] ([id number]) [address] [place] [address] 28359 WBC (Bld) [#/Vol] 9.8 10*3/uL Normal 4.0-11.0 [facility] Comment on above: Performed By: #### 8 9579-7, 38733-2, 5643-2, 30847-9, LIVR, 3040-3, CBCA, BMP #### [facility] ([id number]) [address] [place] [address] 91781 ETHANOLon 06-15-2024 Ethanol [Mass/Vol] mg/dL Normal 0.00-0.08 [facility] Comment on above: Result Comment: This report is intended for use in clinical monitoring or management of patients. Performed By: #### 8 9579-7, 10225-6, 5643-2, 88001-7, LIVR, 3040-3, CBCA, BMP #### [facility] ([id number]) [address] [place] [address] 55106 LIPASEon 06-15-2024 Lipase [Catalytic activity/Vol] 83 U/L High 17-40 [facility] Comment on above: Performed By: #### 8 9579-7, 70341-4, 5643-2, 70119-6, LIVR, 3040-3, CBCA, BMP #### [facility] ([id number]) [address] [place] [address] 89406 LIVER PANELon 06-15-2024 Albumin [Mass/Vol] 4.2 g/dL Normal 3.2-5.3 [facility] Comment on above: Performed By: #### 8 9579-7, 99312-6, 5643-2, 55627-5, LIVR, 3040-3, CBCA, BMP #### [facility] ([id number]) [address] [place] [address] [place] [address] ALP [Catalytic activity/Vol] 106 U/L Normal 39-130 [facility] Comment on above: Performed By: #### 8 9579-7, 50642-3, 5643-2, 12095-9, LIVR, 3040-3, CBCA, BMP #### [facility] ([id number]) [address] [place] [address] 14297 ALT [Catalytic activity/Vol] 12 U/L Normal 0-31 [facility] Comment on above: Performed By: #### 8 9579-7, 54181-4, 5643-2, 63086-4, LIVR, 3040-3, CBCA, BMP #### [facility] ([id number]) [address] [place] [address] 02529 AST [Catalytic activity/Vol] 18 U/L Normal 0-41 [facility] Comment on above: Performed By: #### 8 9579-7, 57442-0, 5643-2, 97077-9, LIVR, 3040-3, CBCA, BMP #### [facility] ([id number]) [address] [place] [address] 90977 Bilirubin [Mass/Vol] 0.3 mg/dL Normal 0.3-1.2 [facility] Comment on above: Performed By: #### 8 9579-7, 99996-8, 5643-2, 23162-7, LIVR, 3040-3, CBCA, BMP #### [facility] ([id number]) [address] [place] [address] 80271 Bilirubin.indirect [Mass/Vol] mg/dL Normal 0.0-0.4 [facility] Comment on above: Performed By: #### 8 9579-7, 79656-5, 5643-2, 47972-1, LIVR, 3040-3, CBCA, BMP #### [facility] ([id number]) [address] [place] [address] 76406 Protein [Mass/Vol] 7.0 g/dL Normal 6.0-8.0 [facility] Comment on above: Performed By: #### 8 9579-7, 77910-1, 5643-2, 61628-1, LIVR, 3040-3, CBCA, BMP #### [facility] ([id number]) [address] [place] [address] 43275 Lactate (P richard) [Moles/Vol]o n 06-15-2024 LACTATE W/REFLEX 1.1 mmol/L Normal 0.4-2.0 [facility] Comment on above: Result Comment: Result did not trigger repeat Lactate, re-order if needed. Performed By: #### 8 9579-7, 90267-1, 5643-2, 39196-5, LIVR, 3040-3, CBCA, BMP #### [facility] ([id number]) [address] [place] [address] 48852 MAGNESIUMon 06-15-2024 Magnesium [Mass/Vol] 2.1 mg/dL Normal 1.8-2.6 [facility] Comment on above: Performed By: #### 8 9579-7, 55010-0, 5643-2, 87493-9, LIVR, 3040-3, CBCA, BMP #### [facility] ([id number]) [address] [place] [address] 57014 CBC AND AUTO DIFFon 05-31- 25 ABSOLUTE BASOPHIL 0.1 X10E9/L Normal 0.0-0.2 [facility] Comment on above: Performed By: #### 8 9579-7, 65599-7, 5643-2, 18719-0, LIVR, 3040-3, CBCA, BMP #### [facility] ([id number]) [address] [place] [address] 49113 ABSOLUTE NEUTROPHIL 7.2 X10E9/L High 1.5-6.6 [facility] Comment on above: Performed By: #### 8 9579-7, 83783-2, 5643-2, 07960-0, LIVR, 3040-3, CBCA, BMP #### [facility] ([id number]) [address] [place] [address] 51842 Basophils/100 WBC (Bld) 1.3 % Normal [facility] Comment on above: Performed By: #### 8 9579-7, 43622-6, 5643-2, 43618-1, LIVR, 3040-3, CBCA, BMP #### [facility] ([id number]) [address] [place] [address] 48589 Eosinophils (Bld) [#/Vol] 0.1 10*3/uL Normal 0.0-0.4 [facility] Comment on above: Performed By: #### 8 9579-7, 71757-1, 5643-2, 12259-9, LIVR, 3040-3, CBCA, BMP #### [facility] ([id number]) [address] [place] [address] 93072 Eosinophils/100 WBC (Bld) 0.9 % Normal [facility] Comment on above: Performed By: #### 8 9579-7, 59915-1, 5643-2, 56878-7, LIVR, 3040-3, CBCA, BMP #### [facility] ([id number]) [address] [place] [address] 98671 Erythrocyte distribution width (RBC) [Ratio] 13.1 % Normal 11.5-15.0 [facility] Comment on above: Performed By: #### 8 9579-7, 23343-1, 5643-2, 57684-1, LIVR, 3040-3, CBCA, BMP #### [facility] ([id number]) [address] [place] [address] 32006 Hematocrit (Bld) [Volume fraction] 40.2 % Normal 35-47 [facility] Comment on above: Performed By: #### 8 9579-7, 65677-4, 5643-2, 09437-9, LIVR, 3040-3, CBCA, BMP #### [facility] ([id number]) [address] [place] [address] 18271 Hemoglobin (Bld) [Mass/Vol] 14.0 g/dL Normal 11.7-15.5 [facility] Comment on above: Performed By: #### 8 9579-7, 40383-9, 5643-2, 21454-8, LIVR, 3040-3, CBCA, BMP #### [facility] ([id number]) [address] [place] [address] 76449 Lymphocytes (Bld) [#/Vol] 2.7 10*3/uL Normal 1.0-3.5 [facility] Comment on above: Performed By: #### 8 9579-7, 03371-8, 5643-2, 10491-5, LIVR, 3040-3, CBCA, BMP #### [facility] ([id number]) [address] [place] [address] 34500 Lymphocytes/100 WBC (Bld) 24.0 % Normal [facility] Comment on above: Performed By: #### 8 9579-7, 77826-6, 5643-2, 36852-8, LIVR, 3040-3, CBCA, BMP #### [facility] ([id number]) [address] [place] [address] 02617 MCH (RBC) [Entitic mass] 34.0 pg Normal 27-34 [facility] Comment on above: Performed By: #### 8 9579-7, 16962-0, 5643-2, 30567-0, LIVR, 3040-3, CBCA, BMP #### [facility] ([id number]) [address] [place] [address] [place] [address] MCHC (RBC) [Mass/Vol] 34.7 g/dL Normal 32-36 [facility] Comment on above: Performed By: #### 8 9579-7, 37759-7, 5643-2, 86309-0, LIVR, 3040-3, CBCA, BMP #### [facility] ([id number]) [address] [place] [address] 35600 MCV (RBC) [Entitic vol] 98 fL Normal 80-100 [facility] Comment on above: Performed By: #### 8 9579-7, 99674-5, 5643-2, 50202-6, LIVR, 3040-3, CBCA, BMP #### [facility] ([id number]) [address] [place] [address] 91222 Monocytes (Bld) [#/Vol] 1.1 10*3/uL High 0-0.9 [facility] Comment on above: Performed By: #### 8 9579-7, 50706-1, 5643-2, 30312-3, LIVR, 3040-3, CBCA, BMP #### [facility] ([id number]) [address] [place] [address] 09804 Monocytes/100 WBC (Bld) 9.6 % Normal [facility] Comment on above: Performed By: #### 8 9579-7, 01082-2, 5643-2, 24695-8, LIVR, 3040-3, CBCA, BMP #### [facility] ([id number]) [address] [place] [address] 31999 Neutrophils/100 WBC (Bld) 64.2 % Normal [facility] Comment on above: Performed By: #### 8 9579-7, 80603-7, 5643-2, 12068-4, LIVR, 3040-3, CBCA, BMP #### [facility] ([id number]) [address] [place] [address] 56078 Platelet mean volume (Bld) [Entitic vol] 7.8 fL Normal 7-12 [facility] Comment on above: Performed By: #### 8 9579-7, 96249-8, 5643-2, 82135-6, LIVR, 3040-3, CBCA, BMP #### [facility] ([id number]) [address] [place] [address] 05474 Platelets (Bld) [#/Vol] 302 10*3/uL Normal 150-450 [facility] Comment on above: Performed By: #### 8 9579-7, 76918-4, 5643-2, 49958-9, LIVR, 3040-3, CBCA, BMP #### [facility] ([id number]) [address] [place] [address] 88024 RBC COUNT 4.11 X10E12/L Normal 3.80-5.20 [facility] Comment on above: Performed By: #### 8 9579-7, 34014-8, 5643-2, 56830-3, LIVR, 3040-3, CBCA, BMP #### [facility] ([id number]) [address] [place] [address] 59596 WBC (Bld) [#/Vol] 11.2 10*3/uL High 4.0-11.0 [facility] Comment on above: Performed By: #### 8 9579-7, 24591-3, 5643-2, 11732-1, LIVR, 3040-3, CBCA, BMP #### [facility] ([id number]) [address] [place] [address] 77593 COMPREHENSIVE METABOLIC PANE Nimesh 05-31-2024 Albumin [Mass/Vol] 4.0 g/dL Normal 3.2-5.3 [facility] Comment on above: Performed By: #### 8 9579-7, 54605-5, 5643-2, 60376-9, LIVR, 3040-3, CBCA, BMP #### [facility] ([id number]) [address] [place] [address] 72562 ALP [Catalytic activity/Vol] 97 U/L Normal 39-130 [facility] Comment on above: Performed By: #### 8 9579-7, 73263-5, 5643-2, 43309-4, LIVR, 3040-3, CBCA, BMP #### [facility] ([id number]) [address] [place] [address] 32706 ALT [Catalytic activity/Vol] 12 U/L Normal 0-31 [facility] Comment on above: Performed By: #### 8 9579-7, 32088-3, 5643-2, 96108-3, LIVR, 3040-3, CBCA, BMP #### [facility] ([id number]) [address] [place] [address] 18059 Anion gap [Moles/Vol] 7 mmol/L Normal 5-15 [facility] Comment on above: Performed By: #### 8 9579-7, 11258-5, 5643-2, 59875-8, LIVR, 3040-3, CBCA, BMP #### [facility] ([id number]) [address] [place] [address] 26469 AST [Catalytic activity/Vol] 19 U/L Normal 0-41 [facility] Comment on above: Performed By: #### 8 9579-7, 33345-7, 5643-2, 80424-8, LIVR, 3040-3, CBCA, BMP #### [facility] ([id number]) [address] [place] [address] 30528 Bilirubin [Mass/Vol] 0.4 mg/dL Normal 0.3-1.2 [facility] Comment on above: Performed By: #### 8 9579-7, 26506-4, 5643-2, 87857-1, LIVR, 3040-3, CBCA, BMP #### [facility] ([id number]) [address] [place] [address] 01516 Calcium [Mass/Vol] 9.3 mg/dL Normal 8.5-10.5 [facility] Comment on above: Performed By: #### 8 9579-7, 86502-4, 5643-2, 17935-4, LIVR, 3040-3, CBCA, BMP #### [facility] ([id number]) [address] [place] [address] 39447 Chloride [Moles/Vol] 106 mmol/L Normal 98-109 [facility] Comment on above: Performed By: #### 8 9579-7, 37106-2, 5643-2, 77370-7, LIVR, 3040-3, CBCA, BMP #### [facility] ([id number]) [address] [place] [address] 34671 CO2 [Moles/Vol] 23 mmol/L Normal 22-32 [facility] Comment on above: Performed By: #### 8 9579-7, 58073-8, 5643-2, 80472-9, LIVR, 3040-3, CBCA, BMP #### [facility] ([id number]) [address] [place] [address] 31650 Creatinine [Mass/Vol] 0.60 mg/dL Normal 0.40-1.00 [facility] Comment on above: Result Comment: METH OD TRACEABLE TO IDMS STANDARD Performed By: #### 8 9579-7, 74200-3, 5643-2, 37685-4, LIVR, 3040-3, CBCA, BMP #### [facility] ([id number]) [address] [place] [address] 88288 eGFR (CKD-EPI) NON-RACE DEPENDENT >90 Normal >59 [facility] Comment on above: Result Comment: Reported eGFR is based on the CKD-EPI 2020 equation that does not use a race coefficient. Performed By: #### 8 9579-7, 45993-2, 5643-2, 81968-4, LIVR, 3040-3, CBCA, BMP #### [facility] ([id number]) [address] [place] [address] 97770 Glucose [Mass/Vol] 101 mg/dL High 65-99 [facility] Comment on above: Performed By: #### 8 9579-7, 79112-8, 5643-2, 61133-7, LIVR, 3040-3, CBCA, BMP #### [facility] ([id number]) [address] [place] [address] 68261 Potassium [Moles/Vol] 3.6 mmol/L Normal 3.5-5.0 [facility] Comment on above: Performed By: #### 8 9579-7, 86117-1, 5643-2, 74049-1, LIVR, 3040-3, CBCA, BMP #### [facility] ([id number]) [address] [place] [address] 15330 Protein [Mass/Vol] 7.2 g/dL Normal 6.0-8.0 [facility] Comment on above: Performed By: #### 8 9579-7, 20847-5, 5643-2, 86337-5, LIVR, 3040-3, CBCA, BMP #### [facility] ([id number]) [address] [place] [address] 32303 Sodium [Moles/Vol] 136 mmol/L Normal 134-146 [facility] Comment on above: Performed By: #### 8 9579-7, 99940-0, 5643-2, 60423-5, LIVR, 3040-3, CBCA, BMP #### [facility] ([id number]) [address] [place] [address] 67338 Urea nitrogen [Mass/Vol] 11 mg/dL Normal 5-23 [facility] Comment on above: Performed By: #### 8 9579-7, 82987-0, 5643-2, 37686-1, LIVR, 3040-3, CBCA, BMP #### [facility] ([id number]) [address] [place] [address] LIPASEon 05-31-2024 Lipase [Catalytic activity/Vol] 104 U/L High 17-40 [facility] Comment on above: Performed By: #### 8 9579-7, 05435-6, 5643-2, 76822-8, LIVR, 3040-3, CBCA, BMP #### [facility] ([id number]) [address] [place] [address] Basic Metabolic Panelon 03-11 Anion gap [Moles/Vol] 8 mmol/L Low 9 - 16 mmol/L [facility] Calcium [Mass/Vol] 8.3 mg/dL Low 8.6 - 10. 4 mg/dL [facility] Chloride [Moles/Vol] 108 mmol/L High 98 - 10 7 mmol/L [facility] CO2 [Moles/Vol] 23 mmol/L 20 - 31 mmol/L [facility] Creatinine [Mass/Vol] 0.6 mg/dL 0.50 - 0.90 mg/dL [facility] Est, Glom Erict Rate - PINF [facility] Comment on above: These results [...] [Mass/Vol] 83 mg/dL 74 - 99 mg/dL [facility] Potassium [Moles/Vol] 4.0 mmol/L 3.7 - 5.3 mmol/L [facility] Sodium [Moles/Vol] 139 mmol/L 136 - 145 mmol/L [facility] Urea nitrogen [Mass/Vol] 10 mg/dL 6 - 20 mg/dL [facility] Urea nitrogen/Creatinine [Mass ratio] 17 mg/mg 9 - 20 [facility] Basic Metabolic Profon 04-07 Anion gap [Moles/Vol] 8 mmol/L Low 9-16 [facility] Comment on above: Performed By: #### B MP, LIVP, LIP #### [facility] [address] [place], [place] [id number] Quality Assurance Lead: Ion Jasso MD BUN/CRE Ratio 17 Normal 9-[address] [facility] Comment on above: Performed By: #### B MP, LIVP, LIP #### [facility] [address] [place], [place] 4669883 Quality Assurance Lead: Ion Jasso MD Calcium [Mass/Vol] 8.3 mg/dL Low 8.6-10.4 [facility] Comment on above: Performed By: #### B MP, LIVP, LIP #### [facility] [address] [place], [place] 7142283 Quality Assurance Lead: Ion Jasso MD Chloride [Moles/Vol] 108 mmol/L High 98-107 [facility] Comment on above: Performed By: #### B MP LIVP, LIP #### [facility] [address] [place], [place] 3255383 Quality Assurance Lead: Ion Jasso MD CO2 [Moles/Vol] 23 mmol/L Normal 20-31 [facility] Comment on above: Performed By: #### B MP, LIVP, LIP #### [facility] [address] [place] [address] Quality Assurance Lead: Ion Jasso MD Creatinine [Mass/Vol] 0.6 mg/dL Normal 0.50-0.90 [facility] Comment on above: Performed By: #### B MP, LIVP, LIP #### [facility] [address] [place] [address] Quality Assurance Lead: Ion Jasso MD GFR/1.73 sq M.predicted among non-blacks MDRD (S/P/Bld) [Vol rate/Area] mL/min/{1.73_m2} Normal >60 [facility] Comment on above: Result Comment: These [...] By: #### B MP, LIVP, LIP #### [facility] [address] [place] [address] [place] [address] Quality Assurance Lead: Ion Jasso MD Glucose [Mass/Vol] 83 mg/dL Normal 74-99 [facility] Comment on above: Performed By: #### B MP LIVP, LIP #### [facility] [address] [place] [address] Quality Assurance Lead: Ion Jasso MD Potassium [Moles/Vol] 4.0 mmol/L Normal 3.7-5.3 [facility] Comment on above: Performed By: #### B MP, LIVP, LIP #### [facility] [address] [place] [address] Quality Assurance Lead: Ion Jasso MD Sodium [Moles/Vol] 139 mmol/L Normal 136-145 [facility] Comment on above: Performed By: #### B MP, LIVP, LIP #### [facility] [address] [place] [address] Quality Assurance Lead: Ion Jasso MD Urea nitrogen [Mass/Vol] 10 mg/dL Normal 6-20 [facility] Comment on above: Performed By: #### B MP, LIVP, LIP #### [facility] [address] [place] [address] Quality Assurance Lead: Ion Jasso MD CBC with Auto Differentialon 04-07-2024 Basophils (Bld) [#/Vol] 0.08 10*3/uL [facility] Basophils/100 WBC (Bld) 1 % 0 - 2 % [facility] Eosinophils (Bld) [#/Vol] 0.13 10*3/uL [facility] Eosinophils/100 WBC (Bld) 1 % 1 - 4 % [facility] Erythrocyte distribution width (RBC) [Ratio] 13.1 % 11.8 - 14.4 % [facility] Hematocrit (Bld) [Volume fraction] 40.1 % 36.3 - 47.1 % [facility] Hemoglobin (Bld) [Mass/Vol] 14.0 g/dL 11.9 - 15.1 g/dL [facility] Immature granulocytes (Bld) [#/Vol] 0.03 10*3/uL [facility] Immature granulocytes/100 WBC (Bld) 0 % 0 [facility] Interpretation and review of laboratory results Abnormal [facility] Lymphocytes/100 WBC (Bld) 26 % 24 - 43 % [facility] Lymphocytes/100 WBC (Bld) 2.39 % [facility] MCH (RBC) [Entitic mass] 33.9 pg High 25.2 - 33.5 pg [facility] MCHC (RBC) [Mass/Vol] 34.9 g/dL High 28.4 - 34.8 g/dL [facility] MCV (RBC) [Entitic vol] 97.1 fL 82.6 - 102.9 fL [facility] Monocytes/100 WBC (Bld) 8 % 3 - 12 % [facility] Monocytes/100 WBC (Bld) 0.76 % [facility] Neutrophils/100 WBC (Bld) 64 % 36 - 65 % [facility] Nucleated RBC/100 WBC (Bld) [Ratio] 0.0 % 0.0 per 100 WBC [facility] Platelet mean volume (Bld) [Entitic vol] 10.6 fL 8.1 - 13.5 fL [facility] Platelets (Bld) [#/Vol] 267 10*3/uL [facility] RBC (Bld) [#/Vol] 4.13 10*6/uL 3.95 - 5.11 m/uL [facility] Segmented neutrophils/100 WBC (Bld) 5.87 % [facility] WBC other (Bld) [#/Vol] 9.3 [facility] CBC with Diffon 04-07-2024 Abs. Basophil 0.08 k/uL Normal 0.00-0.[address] [facility] Comment on above: Performed By: #### B LIZY LIVP, LIP #### [facility] [address] [place] [address] Dr. [place] [phone] Quality Assurance Lead: Ion Jasso MD Abs.Imm.Granulocyte 0.03 k/uL Normal 0.00-0.30 [facility] Comment on above: Performed By: #### B LIZY LIVP, LIP #### [facility] [address] [place] [address] Dr. [place] [phone] Quality Assurance Lead: Ion Jasso MD Abs.Neutrophil (Seg) 5.87 k/uL Normal 1.50-8.10 [facility] Comment on above: Performed By: #### B LIZY LIVP, LIP #### [facility] [address] [place] [address] Dr. [place], [place] [address] Quality Assurance Lead: Ion Jasso MD Basophils/100 WBC (Bld) 1 % Normal 0-2 [facility] Comment on above: Performed By: #### B LIZY LIVP, LIP #### [facility] [address] [place] [address] Dr. [place] [phone] Quality Assurance Lead: Ion Jasso MD Eosinophils (Bld) [#/Vol] 0.13 10*3/uL Normal 0.00-0.44 [facility] Comment on above: Performed By: #### B MP, LIVP, LIP #### [address] [place], [facility]83 Quality Assurance Lead: Ion Jasso MD Eosinophils/100 WBC (Bld) 1 % Normal 1-4 [facility] Comment on above: Performed By: #### B MP, LIVP, LIP #### [address] [place], [place] [address] Quality Assurance Lead: Ion Jasso MD Erythrocyte distribution width (RBC) [Ratio] 13.1 % Normal 11.8-14.4 [facility] Comment on above: Performed By: #### B MP, LIVP, LIP #### [address] [place] [phone] Quality Assurance Lead: Ion Jasso MD Hematocrit (Bld) [Volume fraction] 40.1 % Normal 36.3-47.1 [facility] Comment on above: Performed By: #### B MP, LIVP, LIP #### [address] [place], [facility]83 Quality Assurance Lead: Ion Jasso MD Hemoglobin (Bld) [Mass/Vol] 14.0 g/dL Normal 11.9-15.1 [facility] Comment on above: Performed By: #### B MP, LIVP, LIP #### [address] [place], [place] [address] Quality Assurance Lead: Ion Jasso MD Immature granulocytes/100 WBC (Bld) 0 % Normal 0 [facility] Comment on above: Performed By: #### B MP, LIVP, LIP #### [address] [place], [facility]83 Quality Assurance Lead: Ion Jasso MD Lymphocytes (Bld) [#/Vol] 2.39 10*3/uL Normal 1.10-3.70 [facility] Comment on above: Performed By: #### B MP, LIVP, LIP #### [facility] [address] [place], [facility]83 Quality Assurance Lead: Ion Jasso MD Lymphocytes/100 WBC (Bld) 26 % Normal 24-43 [facility] Comment on above: Performed By: #### B MP, LIVP, LIP #### [facility] [address] [place], [facility]83 Quality Assurance Lead: Ion Jasso MD MCH (RBC) [Entitic mass] 33.9 pg High 25.2-33.5 [facility] Comment on above: Performed By: #### B MP, LIVP, LIP #### [address] [place], [facility]83 Quality Assurance Lead: Ion Jasso MD MCHC (RBC) [Mass/Vol] 34.9 g/dL High 28.4-34.8 [facility] Comment on above: Performed By: #### B MP, LIVP, LIP #### [address] [place], [facility]83 Quality Assurance Lead: Ion Jasso MD MCV (RBC) [Entitic vol] 97.1 fL Normal 82.6-102.9 [facility] Comment on above: Performed By: #### B MP, LIVP, LIP #### [address] [place], [place] [address] Quality Assurance Lead: Ion aJsso MD Monocytes (Bld) [#/Vol] 0.76 10*3/uL Normal 0.10-1.20 [facility] Comment on above: Performed By: #### B MP, LIVP, LIP #### [facility] [address] [place] [address] Quality Assurance Lead: Ion Jasso MD Monocytes/100 WBC (Bld) 8 % Normal 3-12 [facility] Comment on above: Performed By: #### B MP, LIVP, LIP #### [facility] [address] [place], [place] 9891983 Quality Assurance Lead: Ion Jasso MD Neutrophil (Seg) 64 % Normal 36-65 [facility] Comment on above: Performed By: #### B MP, LIVP, LIP #### [facility] [address] [place], [place] 1045283 Quality Assurance Lead: Ion Jasso MD NRBC Automated 0.0 per 100 WBC Normal 0.0 [facility] Comment on above: Performed By: #### B MP, LIVP, LIP #### [facility] [address] [place], [place] 6286683 Quality Assurance Lead: Ion Jasso MD Platelet mean volume (Bld) [Entitic vol] 10.6 fL Normal 8.1-13.5 [facility] Comment on above: Performed By: #### B MP, LIVP, LIP #### [address] [place], [place] 8489183 Quality Assurance Lead: Ion Jasso MD Platelets (Bld) [#/Vol] 267 10*3/uL Normal 138-453 [facility] Comment on above: Performed By: #### B MP, LIVP, LIP #### [address] [place], [place] 4455783 Quality Assurance Lead: Ion Jasso MD RBC (Bld) [#/Vol] 4.13 10*6/uL Normal 3.95-5.11 [facility] Comment on above: Performed By: #### B MP, LIVP, LIP #### [facility] [address] [place], [place] 5936783 Quality Assurance Lead: Ion Jasso MD WBC (Bld) [#/Vol] 9.3 10*3/uL Normal 3.5-11.3 [facility] Comment on above: Performed By: #### B MP, LIVP, LIP #### [address] [place] [address] Quality Assurance Lead: Ion Jasso MD CT ABDOMEN PELVIS W [...] Sarah Tran MD 04/07/24 Final result Normal [facility] CT Abdomen and Pelvis W cont rast Roxana 04-07-2024 1. No acute intra-abdominal or pelvic abnormalities are noted. 2. Stable mild dilatation of the extrahepatic biliary tree and pancreatic duct. 3. Status post cholecystectomy. [facility] RIS CONSOLIDATED EXAMINATION: CT OF THE ABDOMEN [...] and pancreatic duct. 3. Status post cholecystectomy. [facility] Radiology Study observation (narrative) [facility] CT Abdomen and Pelvis W cont rast IVOrdered By: Sarah Tran on 04-07-2024 [facility] Work Phone: Hepatic Function Panelon Albumin [Mass/Vol] 3.9 g/dL 3.5 - 5.2 g/dL [facility] Albumin/Globulin [Mass ratio] 1.7 {ratio} 1.0 - 2.5 [facility] ALP [Catalytic activity/Vol] 119 U/L High 35 - 104 U/L [facility] ALT [Catalytic activity/Vol] 11 U/L 10 - 35 U/L [facility] AST [Catalytic activity/Vol] 30 U/L 10 - 35 U/L [facility] Bilirubin [Mass/Vol] mg/dL 0.00 - 1.20 mg/dL [facility] Bilirubin.direct [Mass/Vol] mg/dL 0.00 - 0.30 mg/dL [facility] Bilirubin.indirect [Mass/Vol] Can not be calculated 0.0 - 1.0 mg/dL [facility] Protein [Mass/Vol] 6.1 g/dL Low 6.6 - 8.7 g/dL [facility] Lipaseon 04-07-2024 Lipase [Catalytic activity/Vol] 266 U/L High 13 - 60 U/L [facility] Lipase [Catalytic activity/Vol] 266 U/L High 13-60 [facility] Comment on above: Performed By: #### B MP, LIVP, LIP #### [facility] [address] [place] [address] Quality Assurance Lead: Ion Jasso MD Liver Profileon 04-07-2024 Albumin [Mass/Vol] 3.9 g/dL Normal 3.5-5.2 [facility] Comment on above: Performed By: #### B MP, LIVP, LIP #### [facility] [address] [place], [place] 0758383 Quality Assurance Lead: Ion Jasso MD Albumin/Glob Ratio 1.7 Normal 1.0-2.5 [facility] Comment on above: Performed By: #### B MP, LIVP, LIP #### [facility] [address] [place], [place] 7022683 Quality Assurance Lead: Ion Jasso MD Alkaline Phos 119 U/L High 35-[address] [facility] Comment on above: Performed By: #### B MP, LIVP, LIP #### [facility] [address] [place], [place] 3539483 Quality Assurance Lead: Ion Jasso MD ALT [Catalytic activity/Vol] 11 U/L Normal 10-35 [facility] Comment on above: Performed By: #### B MP, LIVP, LIP #### [facility] [address] [place], [place] 6745483 Quality Assurance Lead: Ion Jasso MD AST [Catalytic activity/Vol] 30 U/L Normal 10-35 [facility] Comment on above: Performed By: #### B MP, LIVP, LIP #### [facility] [address] [place], [place] 3179783 Quality Assurance Lead: Ion Jasso MD Bilirubin [Mass/Vol] mg/dL Normal 0.00-1.20 [facility] Comment on above: Performed By: #### B MP, LIVP, LIP #### [facility] [address] [place], [place] 7458883 Quality Assurance Lead: Ion Jasso MD Bilirubin, Indirect Can not be calculated Normal 0.0-1 .0 [facility] Comment on above: Performed By: #### B MP, LIVP, LIP #### [facility] [address] [place] [address] Quality Assurance Lead: Ion Jasso MD Bilirubin.indirect [Mass/Vol] mg/dL Normal 0.00-0.30 [facility] Comment on above: Performed By: #### B MP, LIVP, LIP #### [facility] [address] [place] [address] Quality Assurance Lead: Ion Jasso MD Protein [Mass/Vol] 6.1 g/dL Low 6.6-8.7 [facility] Comment on above: Performed By: #### B MP, LIVP, LIP #### [facility] [address] [place] [address] Quality Assurance Lead: Ion Jasso MD No Panel Informationon 04-07 Interpretation and review of laboratory results Abnormal [facility] Specimen Rejectionon 025 Reason for rejection Unable to perform testing: Specimen hemolyzed. Normal [facility] Comment on above: Performed By: #### B MP, LIVP, LIP #### [facility] [address] [place], [place] 8842683 Quality Assurance Lead: Ion Jasso MD Source of sample .BLOOD Normal [facility] Comment on above: Performed By: #### B MP, LIVP, LIP #### [facility] [address] [place], [place] 8147383 Quality Assurance Lead: Ion Jasso MD Test ordered LIP,LIVP, BMP Normal [facility] Comment on above: Performed By: #### B MP, LIVP, LIP #### [facility] [address] [place] [address] Quality Assurance Lead: Ion Jasso MD Urinalysison 04-07-2024 Bilirubin Ql (U) Negative NEGATIVE [facility] Clarity (U) Clear Clear [facility] Color (U) Yellow Yellow [facility] Glucose Test strip (U) [Mass/Vol] Negative NEGATIVE mg/dL [facility] Hemoglobin Auto test strip Ql (U) Negative NEGATIVE [facility] Ketones (U) [Mass/Vol] Negative NEGAT MATTHIAS mg/dL [facility] Leukocyte esterase Test strip Ql (U) Negative NEGATIVE [facility] Nitrite Ql (U) Negative NEGATIVE [facility] pH (U) 5.5 [pH] 5.0 - 9.0 [facility] Protein (U) [Mass/Vol] Negative NEGAT MATTHIAS mg/dL [facility] Specific gravity (U) [Rel density] 1.010 1.010 - 1.020 [facility] Urobilinogen Qn (U) Normal 0.0 - 1. 0 EU/dL [facility] Urinalysis, Routineon 2024 Bilirubin, SemiQt,Ur Negative Normal NEG [facility] Comment on above: Performed By: #### B MP, LIVP, LIP #### [facility] [address] [place], [place] 8679083 Quality Assurance Lead: Ion Jasso MD Blood, Urine Negative Normal NEG [facility] Comment on above: Performed By: #### B MP, LIVP, LIP #### [facility] [address] [place], [place] 9057883 Quality Assurance Lead: Ion Jasso MD Clarity (U) Clear Normal CLEAR [facility] Comment on above: Performed By: #### B MP, LIVP, LIP #### [facility] [address] [place], [place] 7447783 Quality Assurance Lead: Ion Jasso MD Color (U) Yellow Normal YEL [facility] Comment on above: Performed By: #### B MP, LIVP, LIP #### [facility] [address] [place], [place] 3279383 Quality Assurance Lead: Ion Jasso MD Glucose Ql (U) Negative Normal NEG [facility] Comment on above: Performed By: #### B MP, LIVP, LIP #### [facility] [address] [place], [place] 4496383 Quality Assurance Lead: Ion Jasso MD Ketones Ql (U) Negative Normal NEG [facility] Comment on above: Performed By: #### B MP, LIVP, LIP #### [facility] [address] [place], [place] 3345483 Quality Assurance Lead: Ion Jasso MD Leukocyte esterase Test strip Ql (U) Negative Normal NEG [facility] Comment on above: Performed By: #### B MP, LIVP, LIP #### [address] [place], [place] 1069983 Quality Assurance Lead: Ion Jasso MD Nitrite,Ur Negative Normal NEG [facility] Comment on above: Performed By: #### B MP, LIVP, LIP #### [facility] [address] [place] [address] [place] [address] Quality Assurance Lead: Ion Jasso MD PH,Ur 5.5 Normal 5.0-9.0 [facility] Comment on above: Performed By: #### B MP, LIVP, LIP #### [address] [place] [address] Quality Assurance Lead: Ion Jasso MD Protein Ql (U) Negative Normal NEG [facility] Comment on above: Performed By: #### B MP, LIVP, LIP #### [facility] [address] [place] [address] Quality Assurance Lead: Ion Jasso MD Spec. [place],Ur 1.010 Normal 1.010-1.02 0 [facility] Comment on above: Performed By: #### B MP, LIVP, LIP #### [facility] [address] [place], [place] 6077183 Quality Assurance Lead: Ion Jasso MD Urobilinogen,Ur Normal Normal 0.0-1.0 [facility] Comment on above: Performed By: #### B MP, LIVP, LIP #### [facility] [address] [place] [address] Quality Assurance Lead: Ion Jasso MD CBC AND AUTO DIFFon 03-18-19 25 ABSOLUTE BASOPHIL 0.1 X10E9/L Normal 0.0-0.2 [facility] Comment on above: Performed By: #### 8 9579-7, 68406-0, 5643-2, 75743-2, LIVR, 3040-3, CBCA, BMP #### [facility] ([id number]) [address] [place] [address] ABSOLUTE NEUTROPHIL 7.7 X10E9/L High 1.5-6.6 [facility] Comment on above: Performed By: #### 8 9579-7, 94911-7, 5643-2, 72684-5, LIVR, 3040-3, CBCA, BMP #### [facility] ([id number]) [address] [place] [address] Basophils/100 WBC (Bld) 0.8 % Normal [facility] Comment on above: Performed By: #### 8 9579-7, 20933-7, 5643-2, 03084-4, LIVR, 3040-3, CBCA, BMP #### [facility] ([id number]) [address] [place] [address] Eosinophils (Bld) [#/Vol] 0.1 10*3/uL Normal 0.0-0.4 [facility] Comment on above: Performed By: #### 8 9579-7, 75853-2, 5643-2, 93960-1, LIVR, 3040-3, CBCA, BMP #### [facility] ([id number]) [address] [place] [address]203 Eosinophils/100 WBC (Bld) 0.5 % Normal [facility] Comment on above: Performed By: #### 8 9579-7, 00353-6, 5643-2, 05194-0, LIVR, 3040-3, CBCA, BMP #### [facility] ([id number]) [address] [place] [address]957 Erythrocyte distribution width (RBC) [Ratio] 13.5 % Normal 11.5-15.0 [facility] Comment on above: Performed By: #### 8 9579-7, 45896-9, 5643-2, 19650-3, LIVR, 3040-3, CBCA, BMP #### [facility] ([id number]) [address] [place] [address]23 Hematocrit (Bld) [Volume fraction] 48.7 % High 35-47 [facility] Comment on above: Performed By: #### 8 9579-7, 58119-9, 5643-2, 25718-5, LIVR, 3040-3, CBCA, BMP #### [facility] ([id number]) [address] [place] [address] Hemoglobin (Bld) [Mass/Vol] 16.5 g/dL High 11.7-15.5 [facility] Comment on above: Performed By: #### 8 9579-7, 97306-2, 5643-2, 25024-4, LIVR, 3040-3, CBCA, BMP #### [facility] ([id number]) [address] [place] [address] 64769 Lymphocytes (Bld) [#/Vol] 2.0 10*3/uL Normal 1.0-3.5 [facility] Comment on above: Performed By: #### 8 9579-7, 00546-8, 5643-2, 84433-6, LIVR, 3040-3, CBCA, BMP #### [facility] ([id number]) [address] [place] [address]339 Lymphocytes/100 WBC (Bld) 19.0 % Normal [facility] Comment on above: Performed By: #### 8 9579-7, 70132-9, 5643-2, 62393-7, LIVR, 3040-3, CBCA, BMP #### [facility] ([id number]) [address] [place] [address] 65[address] MCH (RBC) [Entitic mass] 33.5 pg Normal 27-34 [facility] Comment on above: Performed By: #### 8 9579-7, 24148-9, 5643-2, 27427-2, LIVR, 3040-3, CBCA, BMP #### [facility] ([id number]) [address] [place] [address] 01449 MCHC (RBC) [Mass/Vol] 33.9 g/dL Normal 32-36 [facility] Comment on above: Performed By: #### 8 9579-7, 13243-1, 5643-2, 64016-1, LIVR, 3040-3, CBCA, BMP #### [facility] ([id number]) [address] [place] [address] 40744 MCV (RBC) [Entitic vol] 99 fL Normal 80-100 [facility] Comment on above: Performed By: #### 8 9579-7, 42410-4, 5643-2, 64587-0, LIVR, 3040-3, CBCA, BMP #### [facility] ([id number]) [address] [place] [address] 52390 Monocytes (Bld) [#/Vol] 0.8 10*3/uL Normal 0-0.9 [facility] Comment on above: Performed By: #### 8 9579-7, 97921-5, 5643-2, 11376-0, LIVR, 3040-3, CBCA, BMP #### [facility] ([id number]) [address] [place] [address] 08808 Monocytes/100 WBC (Bld) 7.4 % Normal [facility] Comment on above: Performed By: #### 8 9579-7, 98828-3, 5643-2, 03677-4, LIVR, 3040-3, CBCA, BMP #### [facility] ([id number]) [address] [place] [address] 27326 Neutrophils/100 WBC (Bld) 72.3 % Normal [facility] Comment on above: Performed By: #### 8 9579-7, 76612-9, 5643-2, 22790-5, LIVR, 3040-3, CBCA, BMP #### [facility] ([id number]) [address] [place] [address] 17756 Platelet mean volume (Bld) [Entitic vol] 8.1 fL Normal 7-12 [facility] Comment on above: Performed By: #### 8 9579-7, 88798-2, 5643-2, 59787-4, LIVR, 3040-3, CBCA, BMP #### [facility] ([id number]) [address] [place] [address] 57860 Platelets (Bld) [#/Vol] 304 10*3/uL Normal 150-450 [facility] Comment on above: Performed By: #### 8 9579-7, 94859-4, 5643-2, 10599-6, LIVR, 3040-3, CBCA, BMP #### [facility] ([id number]) [address] [place] [address] 65820 RBC COUNT 4.92 X10E12/L Normal 3.80-5.20 [facility] Comment on above: Performed By: #### 8 9579-7, 32529-3, 5643-2, 40808-3, LIVR, 3040-3, CBCA, BMP #### [facility] ([id number]) [address] [place] [address] 62981 WBC (Bld) [#/Vol] 10.7 10*3/uL Normal 4.0-11.0 [facility] Comment on above: Performed By: #### 8 9579-7, 26555-1, 5643-2, 09014-2, LIVR, 3040-3, CBCA, BMP #### [facility] ([id number]) [address] [place] [address] 36058 COMPREHENSIVE METABOLIC PANE Nimesh 03-18-2024 Albumin [Mass/Vol] 4.7 g/dL Normal 3.2-5.3 [facility] Comment on above: Performed By: #### 8 9579-7, 48609-8, 5643-2, 19033-6, LIVR, 3040-3, CBCA, BMP #### [facility] ([id number]) [address] [place] [address] 02573 ALP [Catalytic activity/Vol] 153 U/L High 39-130 [facility] Comment on above: Performed By: #### 8 9579-7, 57665-2, 5643-2, 00079-7, LIVR, 3040-3, CBCA, BMP #### [facility] ([id number]) [address] [place] [address] 96706 ALT [Catalytic activity/Vol] 18 U/L Normal 0-31 [facility] Comment on above: Performed By: #### 8 9579-7, 22142-7, 5643-2, 69617-8, LIVR, 3040-3, CBCA, BMP #### [facility] ([id number]) [address] [place] [address] 71351 Anion gap [Moles/Vol] 9 mmol/L Normal 5-15 [facility] Comment on above: Performed By: #### 8 9579-7, 27915-4, 5643-2, 09684-9, LIVR, 3040-3, CBCA, BMP #### [facility] ([id number]) [address] [place] [address] 33613 AST [Catalytic activity/Vol] 26 U/L Normal 0-41 [facility] Comment on above: Performed By: #### 8 9579-7, 09544-7, 5643-2, 52607-8, LIVR, 3040-3, CBCA, BMP #### [facility] ([id number]) [address] [place] [address] 87409 Bilirubin [Mass/Vol] 0.8 mg/dL Normal 0.3-1.2 [facility] Comment on above: Performed By: #### 8 9579-7, 45903-7, 5643-2, 90003-8, LIVR, 3040-3, CBCA, BMP #### [facility] ([id number]) [address] [place] [address] 81152 Calcium [Mass/Vol] 10.9 mg/dL High 8.5-10.5 [facility] Comment on above: Performed By: #### 8 9579-7, 02710-2, 5643-2, 58255-9, LIVR, 3040-3, CBCA, BMP #### [facility] ([id number]) [address] [place] [address] 36744 Chloride [Moles/Vol] 104 mmol/L Normal 98-109 [facility] Comment on above: Performed By: #### 8 9579-7, 57561-8, 5643-2, 20240-1, LIVR, 3040-3, CBCA, BMP #### [facility] ([id number]) [address] [place] [address] 53622 CO2 [Moles/Vol] 27 mmol/L Normal 22-32 [facility] Comment on above: Performed By: #### 8 9579-7, 64868-7, 5643-2, 82248-4, LIVR, 3040-3, CBCA, BMP #### [facility] ([id number]) [address] [place] [address] 26543 Creatinine [Mass/Vol] 0.78 mg/dL Normal 0.40-1.00 [facility] Comment on above: Result Comment: METH OD TRACEABLE TO IDMS STANDARD Performed By: #### 8 9579-7, 88997-3, 5643-2, 07787-4, LIVR, 3040-3, CBCA, BMP #### [facility] ([id number]) [address] [place] [address] 80414 eGFR (CKD-EPI) NON-RACE DEPENDENT >90 Normal >59 [facility] Comment on above: Result Comment: Reported eGFR is based on the CKD-EPI 2020 equation that does not use a race coefficient. Performed By: #### 8 9579-7, 35267-1, 5643-2, 49690-4, LIVR, 3040-3, CBCA, BMP #### [facility] ([id number]) [address] [place] [address] 33446 Glucose [Mass/Vol] 103 mg/dL High 65-99 [facility] Comment on above: Performed By: #### 8 9579-7, 93095-0, 5643-2, 29591-2, LIVR, 3040-3, CBCA, BMP #### [facility] ([id number]) [address] [place] [address] 08055 Potassium [Moles/Vol] 4.5 mmol/L Normal 3.5-5.0 [facility] Comment on above: Performed By: #### 8 9579-7, 81737-3, 5643-2, 53594-1, LIVR, 3040-3, CBCA, BMP #### [facility] ([id number]) [address] [place] [address] 12998 Protein [Mass/Vol] 8.2 g/dL High 6.0-8.0 [facility] Comment on above: Performed By: #### 8 9579-7, 88599-8, 5643-2, 93870-9, LIVR, 3040-3, CBCA, BMP #### [facility] ([id number]) [address] [place] [address] 01446 Sodium [Moles/Vol] 140 mmol/L Normal 134-146 [facility] Comment on above: Performed By: #### 8 9579-7, 64927-4, 5643-2, 23131-0, LIVR, 3040-3, CBCA, BMP #### [facility] ([id number]) [address] [place] [address] 45855 Urea nitrogen [Mass/Vol] 11 mg/dL Normal 5-23 [facility] Comment on above: Performed By: #### 8 9579-7, 12718-6, 5643-2, 02136-7, LIVR, 3040-3, CBCA, BMP #### [facility] ([id number]) [address] [place] [address] ABDOMEN AND PELVIS W CONT on [...] Cano MD on 03/18/2024 3:38 PM Normal [facility] LIPASEon 03-18-2024 Lipase [Catalytic activity/Vol] 73 U/L High 17-40 [facility] Comment on above: Performed By: #### 8 9579-7, 73623-9, 5643-2, 49237-4, LIVR, 3040-3, CBCA, BMP #### [facility] ([id number]) [address] [place] [address], [place] [address] UPPER EUSon 01-19-2024 [facility] Gastroenterology Patient Name: Chioma Rainey Procedure Date: 01/19/2024 9:15 AM Date of : 1970 Admit Type: Outpatient Age: 53 Room: EUS Proc Room 01 Gender: Female Note Status: Finalized Attending MD: Sabrina Dee MD, MPH, [id number] Procedure: Upper EUS Indications: Celiac plexus block [...] o (more content not included)... LAB, [facility] Rad[facility] AND AUTO DIFFon 01-14-20 24 ABSOLUTE BASOPHIL 0.1 X10E9/L Normal 0.0-0.2 [facility] Comment on above: Performed By: #### 8 9579-7, 17175-9, 5643-2, 53506-8, LIVR, 3040-3, CBCA, BMP #### [facility] ([id number]) [address] [place] [address] 48577 ABSOLUTE NEUTROPHIL 6.8 X10E9/L High 1.5-6.6 [facility] Comment on above: Performed By: #### 8 9579-7, 58624-2, 5643-2, 46954-6, LIVR, 3040-3, CBCA, BMP #### [facility] ([id number]) [address] [place] [address] 87819 Basophils/100 WBC (Bld) 0.8 % Normal [facility] Comment on above: Performed By: #### 8 9579-7, 65751-0, 5643-2, 77297-5, LIVR, 3040-3, CBCA, BMP #### [facility] ([id number]) [address] [place] [address] 58846 Eosinophils (Bld) [#/Vol] 0.1 10*3/uL Normal 0.0-0.4 [facility] Comment on above: Performed By: #### 8 9579-7, 01969-3, 5643-2, 81501-1, LIVR, 3040-3, CBCA, BMP #### [facility] ([id number]) [address] [place] [address] 94634 Eosinophils/100 WBC (Bld) 1.2 % Normal [facility] Comment on above: Performed By: #### 8 9579-7, 95617-2, 5643-2, 72890-3, LIVR, 3040-3, CBCA, BMP #### [facility] ([id number]) [address] [place] [address] 18586 Erythrocyte distribution width (RBC) [Ratio] 12.9 % Normal 11.5-15.0 [facility] Comment on above: Performed By: #### 8 9579-7, 50552-9, 5643-2, 96651-4, LIVR, 3040-3, CBCA, BMP #### [facility] ([id number]) [address] [place] [address] 13555 Hematocrit (Bld) [Volume fraction] 42.2 % Normal 35-47 [facility] Comment on above: Performed By: #### 8 9579-7, 34953-1, 5643-2, 84494-4, LIVR, 3040-3, CBCA, BMP #### [facility] ([id number]) [address] [place] [address] 75667 Hemoglobin (Bld) [Mass/Vol] 14.5 g/dL Normal 11.7-15.5 [facility] Comment on above: Performed By: #### 8 9579-7, 15896-5, 5643-2, 76932-1, LIVR, 3040-3, CBCA, BMP #### [facility] ([id number]) [address] [place] [address] 61502 Lymphocytes (Bld) [#/Vol] 2.8 10*3/uL Normal 1.0-3.5 [facility] Comment on above: Performed By: #### 8 9579-7, 73426-0, 5643-2, 19296-5, LIVR, 3040-3, CBCA, BMP #### [facility] ([id number]) [address] [place] [address] 99078 Lymphocytes/100 WBC (Bld) 26.2 % Normal [facility] Comment on above: Performed By: #### 8 9579-7, 64295-8, 5643-2, 29906-0, LIVR, 3040-3, CBCA, BMP #### [facility] ([id number]) [address] [place] [address] 82641 MCH (RBC) [Entitic mass] 33.8 pg Normal 27-34 [facility] Comment on above: Performed By: #### 8 9579-7, 01789-3, 5643-2, 17274-6, LIVR, 3040-3, CBCA, BMP #### [facility] ([id number]) [address] [place] [address] 68090 MCHC (RBC) [Mass/Vol] 34.3 g/dL Normal 32-36 [facility] Comment on above: Performed By: #### 8 9579-7, 59361-7, 5643-2, 33752-7, LIVR, 3040-3, CBCA, BMP #### [facility] ([id number]) [address] [place] [address] 07976 MCV (RBC) [Entitic vol] 98 fL Normal 80-100 [facility] Comment on above: Performed By: #### 8 9579-7, 41169-6, 5643-2, 11315-9, LIVR, 3040-3, CBCA, BMP #### [facility] ([id number]) [address] [place] [address] 25641 Monocytes (Bld) [#/Vol] 0.9 10*3/uL Normal 0-0.9 [facility] Comment on above: Performed By: #### 8 9579-7, 89389-0, 5643-2, 13496-5, LIVR, 3040-3, CBCA, BMP #### [facility] ([id number]) [address] [place] [address] 06795 Monocytes/100 WBC (Bld) 8.2 % Normal [facility] Comment on above: Performed By: #### 8 9579-7, 00523-6, 5643-2, 95642-2, LIVR, 3040-3, CBCA, BMP #### [facility] ([id number]) [address] [place] [address] 89153 Neutrophils/100 WBC (Bld) 63.6 % Normal [facility] Comment on above: Performed By: #### 8 9579-7, 31415-7, 5643-2, 23244-8, LIVR, 3040-3, CBCA, BMP #### [facility] ([id number]) [address] [place] [address] 70581 Platelet mean volume (Bld) [Entitic vol] 8.2 fL Normal 7-12 [facility] Comment on above: Performed By: #### 8 9579-7, 44756-9, 5643-2, 99751-6, LIVR, 3040-3, CBCA, BMP #### [facility] ([id number]) [address] [place] [address] 75183 Platelets (Bld) [#/Vol] 259 10*3/uL Normal 150-450 [facility] Comment on above: Performed By: #### 8 9579-7, 48905-9, 5643-2, 32994-4, LIVR, 3040-3, CBCA, BMP #### [facility] ([id number]) [address] [place] [address] 94707 RBC COUNT 4.29 X10E12/L Normal 3.80-5.20 [facility] Comment on above: Performed By: #### 8 9579-7, 13811-2, 5643-2, 40916-3, LIVR, 3040-3, CBCA, BMP #### [facility] ([id number]) [address] [place] [address] 60410 WBC (Bld) [#/Vol] 10.7 10*3/uL Normal 4.0-11.0 [facility] Comment on above: Performed By: #### 8 9579-7, 88824-0, 5643-2, 89358-9, LIVR, 3040-3, CBCA, BMP #### [facility] ([id number]) [address] [place] [address] 81769 COMPREHENSIVE METABOLIC PANE Nimesh 01-14-2024 Albumin [Mass/Vol] 4.2 g/dL Normal 3.2-5.3 [facility] Comment on above: Performed By: #### 8 9579-7, 78276-4, 5643-2, 77799-3, LIVR, 3040-3, CBCA, BMP #### [facility] ([id number]) [address] [place] [address] 10859 ALP [Catalytic activity/Vol] 136 U/L High 39-130 [facility] Comment on above: Performed By: #### 8 9579-7, 71432-2, 5643-2, 24104-3, LIVR, 3040-3, CBCA, BMP #### [facility] ([id number]) [address] [place] [address] 41602 ALT [Catalytic activity/Vol] 18 U/L Normal 0-31 [facility] Comment on above: Performed By: #### 8 9579-7, 53818-7, 5643-2, 53516-6, LIVR, 3040-3, CBCA, BMP #### [facility] ([id number]) [address] [place] [address] 73854 Anion gap [Moles/Vol] 10 mmol/L Normal 5-15 [facility] Comment on above: Performed By: #### 8 9579-7, 02800-8, 5643-2, 17170-2, LIVR, 3040-3, CBCA, BMP #### [facility] ([id number]) [address] [place] [address] 73536 AST [Catalytic activity/Vol] 21 U/L Normal 0-41 [facility] Comment on above: Performed By: #### 8 9579-7, 45248-2, 5643-2, 39515-6, LIVR, 3040-3, CBCA, BMP #### [facility] ([id number]) [address] [place] [address] 60751 Bilirubin [Mass/Vol] 0.5 mg/dL Normal 0.3-1.2 [facility] Comment on above: Performed By: #### 8 9579-7, 62202-7, 5643-2, 81150-9, LIVR, 3040-3, CBCA, BMP #### [facility] ([id number]) [address] [place] [address] 03135 Calcium [Mass/Vol] 9.6 mg/dL Normal 8.5-10.5 [facility] Comment on above: Performed By: #### 8 9579-7, 62270-8, 5643-2, 65346-8, LIVR, 3040-3, CBCA, BMP #### [facility] ([id number]) [address] [place] [address] 00428 Chloride [Moles/Vol] 105 mmol/L Normal 98-109 [facility] Comment on above: Performed By: #### 8 9579-7, 16715-6, 5643-2, 63852-0, LIVR, 3040-3, CBCA, BMP #### [facility] ([id number]) [address] [place] [address] 33796 CO2 [Moles/Vol] 22 mmol/L Normal 22-32 [facility] Comment on above: Performed By: #### 8 9579-7, 50254-3, 5643-2, 64707-2, LIVR, 3040-3, CBCA, BMP #### [facility] ([id number]) [address] [place] [address] 70862 Creatinine [Mass/Vol] 0.74 mg/dL Normal 0.40-1.00 [facility] Comment on above: Result Comment: METH OD TRACEABLE TO IDMS STANDARD Performed By: #### 8 9579-7, 92885-5, 5643-2, 02469-1, LIVR, 3040-3, CBCA, BMP #### [facility] ([id number]) [address] [place] [address] 79275 eGFR (CKD-EPI) NON-RACE DEPENDENT >90 Normal >59 [facility] Comment on above: Result Comment: Reported eGFR is based on the CKD-EPI 2020 equation that does not use a race coefficient. Performed By: #### 8 9579-7, 32771-0, 5643-2, 11465-9, LIVR, 3040-3, CBCA, BMP #### [facility] ([id number]) [address] [place] [address] 32285 Glucose [Mass/Vol] 93 mg/dL Normal 65-99 [facility] Comment on above: Performed By: #### 8 9579-7, 18246-1, 5643-2, 32369-8, LIVR, 3040-3, CBCA, BMP #### [facility] ([id number]) [address] [place] [address] 10538 Potassium [Moles/Vol] 3.6 mmol/L Normal 3.5-5.0 [facility] Comment on above: Performed By: #### 8 9579-7, 59531-2, 5643-2, 97292-8, LIVR, 3040-3, CBCA, BMP #### [facility] ([id number]) [address] [place] [address] 54515 Protein [Mass/Vol] 7.3 g/dL Normal 6.0-8.0 [facility] Comment on above: Performed By: #### 8 9579-7, 67373-1, 5643-2, 51073-6, LIVR, 3040-3, CBCA, BMP #### [facility] ([id number]) [address] [place] [address] 31184 Sodium [Moles/Vol] 137 mmol/L Normal 134-146 [facility] Comment on above: Performed By: #### 8 9579-7, 45970-8, 5643-2, 32218-5, LIVR, 3040-3, CBCA, BMP #### [facility] ([id number]) [address] [place] [address] 50718 Urea nitrogen [Mass/Vol] 7 mg/dL Normal 5-23 [facility] Comment on above: Performed By: #### 8 9579-7, 66334-0, 5643-2, 27702-0, LIVR, 3040-3, CBCA, BMP #### [facility] ([id number]) [address] [place] [address] ABDOMEN AND PELVIS W CONT on [...] Rodgers MD on 01/14/2024 5:01 PM Normal [facility] LIPASEon 01-14-2024 Lipase [Catalytic activity/Vol] 72 U/L High 17-40 [facility] Comment on above: Performed By: #### 8 9579-7, 81389-9, 5643-2, 31357-8, LIVR, 3040-3, CBCA, BMP #### [facility] ([id number]) [address] [place] [address] 19650 MAGNESIUMon 01-14-2024 Magnesium [Mass/Vol] 2.2 mg/dL Normal 1.8-2.6 [facility] Comment on above: Performed By: #### 8 9579-7, 43718-8, 5643-2, 11931-7, LIVR, 3040-3, CBCA, BMP #### [facility] ([id number]) [address] [place] [address] 44407 URN MACROSCOPIC NURon 2023 BILIRUBIN JERE Negative Normal NEG [facility] Comment on above: Performed By: #### 8 9579-7, 52758-4, 5643-2, 37616-9, LIVR, 3040-3, CBCA, BMP #### [facility] ([id number]) [address] [place] [address] 76449 BLOOD/HGB JERE Negative Normal NEG [facility] Comment on above: Performed By: #### 8 9579-7, 08690-0, 5643-2, 92216-7, LIVR, 3040-3, CBCA, BMP #### [facility] ([id number]) [address] [place] [address] 41725 GLUCOSE JERE Negative Normal NEG [facility] Comment on above: Performed By: #### 8 9579-7, 30866-7, 5643-2, 89685-6, LIVR, 3040-3, CBCA, BMP #### [facility] ([id number]) [address] [place] [address] 57618 KETONES JERE Negative Normal NEG [facility] Comment on above: Performed By: #### 8 9579-7, 44919-6, 5643-2, 95119-1, LIVR, 3040-3, CBCA, BMP #### [facility] ([id number]) [address] [place] [address] 66522 LEUKOCYTE ESTERASE JERE Negative Normal NEG [facility] Comment on above: Performed By: #### 8 9579-7, 55244-4, 5643-2, 97098-6, LIVR, 3040-3, CBCA, BMP #### [facility] ([id number]) [address] [place] [address] 12993 NITRITE JERE Negative Normal NEG [facility] Comment on above: Performed By: #### 8 9579-7, 07993-6, 5643-2, 03537-3, LIVR, 3040-3, CBCA, BMP #### [facility] ([id number]) [address] [place] [address] 18231 PH JERE 5.5 Normal 5.0-8.5 [facility] Comment on above: Performed By: #### 8 9579-7, 02109-3, 5643-2, 95931-9, LIVR, 3040-3, CBCA, BMP #### [facility] ([id number]) [address] [place] [address] 98069 PROTEIN JERE Negative Normal NEG [facility] Comment on above: Performed By: #### 8 9579-7, 41942-4, 5643-2, 89976-8, LIVR, 3040-3, CBCA, BMP #### [facility] ([id number]) [address] [place] [address] SPECIFIC GRAVITY JERE >=1.030 Normal 1.003-1 .03 5 [facility] Comment on above: Performed By: #### 8 9579-7, 89622-0, 5643-2, 23579-1, LIVR, 3040-3, CBCA, BMP #### [facility] ([id number]) [address] [place] [address] UROBILINOGEN JERE 0.2 eu/dL Normal <1.1 [facility] Comment on above: Performed By: #### 8 9579-7, 67155-0, 5643-2, 66478-4, LIVR, 3040-3, CBCA, BMP #### [facility] ([id number]) [address] [place] [address] CBC with Auto Differentialon 01-07-2024 Basophils (Bld) [#/Vol] 0.09 10*3/uL [facility] Basophils/100 WBC (Bld) 1 % 0 - 2 % [facility] Eosinophils (Bld) [#/Vol] 0.10 10*3/uL [facility] Eosinophils/100 WBC (Bld) 1 % 1 - 4 % [facility] Erythrocyte distribution width (RBC) [Ratio] 12.2 % 11.8 - 14.4 % [facility] Hematocrit (Bld) [Volume fraction] 46.3 % 36.3 - 47.1 % [facility] Hemoglobin (Bld) [Mass/Vol] 15.9 g/dL High 11.9 - 15.1 g/dL [facility] Immature granulocytes (Bld) [#/Vol] [facility] Immature granulocytes/100 WBC (Bld) 0 % 0 [facility] Interpretation and review of laboratory results Abnormal [facility] Lymphocytes/100 WBC (Bld) 28 % 24 - 43 % [facility] Lymphocytes/100 WBC (Bld) 2.73 % [facility] MCH (RBC) [Entitic mass] 33.8 pg High 25.2 - 33.5 pg [facility] MCHC (RBC) [Mass/Vol] 34.3 g/dL 28.4 - 34.8 g/dL [facility] MCV (RBC) [Entitic vol] 98.3 fL 82.6 - 102.9 fL [facility] Monocytes/100 WBC (Bld) 9 % 3 - 12 % [facility] Monocytes/100 WBC (Bld) 0.88 % [facility] Neutrophils/100 WBC (Bld) 61 % 36 - 65 % [facility] Nucleated RBC/100 WBC (Bld) [Ratio] 0.0 % 0.0 per 100 WBC [facility] Platelet mean volume (Bld) [Entitic vol] 9.7 fL 8.1 - 13.5 fL [facility] Platelets (Bld) [#/Vol] 277 10*3/uL [facility] RBC (Bld) [#/Vol] 4.71 10*6/uL 3.95 - 5.11 m/uL [facility] Segmented neutrophils/100 WBC (Bld) 6.06 % [facility] WBC other (Bld) [#/Vol] 9.9 [facility] CBC with Diffon 01-07-2024 Abs. Basophil 0.09 k/uL Normal 0.00-0.[address] [facility] Comment on above: Performed By: #### L WALTER ROONEY, CP #### [facility] [address] [place] [address] Quality Assurance Lead: Ion Jasso MD Abs.Imm.Granulocyte <0.03 Normal 0.00-0.30 [facility] Comment on above: Performed By: #### L WALTER ROONEY, CP #### [facility] [address] [place] [address] Quality Assurance Lead: Ion Jasso MD Abs.Neutrophil (Seg) 6.06 k/uL Normal 1.50-8.10 [facility] Comment on above: Performed By: #### L WALTER ROONEY, CP #### [facility] [address] [place] [address] Dr. [place], [facility]83 Quality Ass[employer] Lead: Ion Jasso MD Basophils/100 WBC (Bld) 1 % Normal 0-2 [facility] Comment on above: Performed By: #### L IP, CDP, CP #### [address] [place], [facility]83 [employer] Ass[employer] Lead: Ion Jasso MD Eosinophils (Bld) [#/Vol] 0.10 10*3/uL Normal 0.00-0.44 [facility] Comment on above: Performed By: #### L IP, CDP, CP #### [address] [place], [facility]83 [employer] Ass[employer] Lead: Ion Jasso MD Eosinophils/100 WBC (Bld) 1 % Normal 1-4 [facility] Comment on above: Performed By: #### L IP, CDP, CP #### [address] [place], [facility]83 [employer] Lead: Ion Jasso MD Erythrocyte distribution width (RBC) [Ratio] 12.2 % Normal 11.8-14.4 [facility] Comment on above: Performed By: #### L IP, CDP, CP #### [address] [place], [facility]83 [employer] Ass[employer] Lead: Ion Jasso MD Hematocrit (Bld) [Volume fraction] 46.3 % Normal 36.3-47.1 [facility] Comment on above: Performed By: #### L IP, CDP, CP #### [address] [place], [facility]83 [employer] Lead: Ion Jasso MD Hemoglobin (Bld) [Mass/Vol] 15.9 g/dL High 11.9-15.1 [facility] Comment on above: Performed By: #### L IP, CDP, CP #### [address] [place], [place] [id number] [employer] Lead: Ion Jasso MD Immature granulocytes/100 WBC (Bld) 0 % Normal 0 [facility] Comment on above: Performed By: #### L IP, CDP, CP #### [address] [place], [place] [id number] [employer] Lead: Ion Jasso MD Lymphocytes (Bld) [#/Vol] 2.73 10*3/uL Normal 1.10-3.70 [facility] Comment on above: Performed By: #### L IP, CDP, CP #### [address] [place], [facility]83 [employer] Ass[employer] Lead: Ion Jasso MD Lymphocytes/100 WBC (Bld) 28 % Normal 24-43 [facility] Comment on above: Performed By: #### L IP, CDP, CP #### [address] [place], [facility]83 [employer] Ass[employer] Lead: Ion Jasso MD MCH (RBC) [Entitic mass] 33.8 pg High 25.2-33.5 [facility] Comment on above: Performed By: #### L IP, CDP, CP #### [address] [place], [facility]83 Quality Assurance Lead: Ion Jasso MD MCHC (RBC) [Mass/Vol] 34.3 g/dL Normal 28.4-34.8 [facility] Comment on above: Performed By: #### L IP, CDP, CP #### [address] [place], [place] [id number] [employer] Lead: Ion Jasso MD MCV (RBC) [Entitic vol] 98.3 fL Normal 82.6-102.9 [facility] Comment on above: Performed By: #### L IP, CDP, CP #### [address] [place], [place] [id number] [employer] Lead: Ion Jasso MD Monocytes (Bld) [#/Vol] 0.88 10*3/uL Normal 0.10-1.20 [facility] Comment on above: Performed By: #### L IP, CDP, CP #### [facility] [address] [place] [address] [employer] Lead: Ion Jasso MD Monocytes/100 WBC (Bld) 9 % Normal 3-12 [facility] Comment on above: Performed By: #### L IP, CDP, CP #### [address] [place], [facility]83 [employer] Ass[employer] Lead: Ion Jasso MD Neutrophil (Seg) 61 % Normal 36-65 [facility] Comment on above: Performed By: #### L IP, CDP, CP #### [address] [place], [facility]11 ( [employer] Assurance Lead: Ion Jasso MD NRBC Automated 0.0 per 100 WBC Normal 0.0 [facility] Comment on above: Performed By: #### L IP, CDP, CP #### [address] [place], [facility]83 [employer] Ass[employer] Lead: Ion Jasso MD Platelet mean volume (Bld) [Entitic vol] 9.7 fL Normal 8.1-13.5 [facility] [facility] Comment on above: Performed By: #### L IP, CDP, CP #### [address] [place], [facility]83 Quality Assurance Lead: Ion Jasso MD Platelets (Bld) [#/Vol] 277 10*3/uL Normal 138-453 [facility] Comment on above: Performed By: #### L IP, CDP, CP #### [address] [place], [place] [id number] Quality Assurance Lead: Ion Jasso MD RBC (Bld) [#/Vol] 4.71 10*6/uL Normal 3.95-5.11 [facility] Comment on above: Performed By: #### L TORIBIO CDP, CP #### [facility] [address] [place] [address] Quality Assurance Lead: Ion Jasso MD WBC (Bld) [#/Vol] 9.9 10*3/uL Normal 3.5-11.3 [facility] Comment on above: Performed By: #### L IP, CDP, CP #### [facility] [address] [place], [place] [id number] Quality Assurance Lead: Ion Jasso MD Comp Metabolic Profon 2023 Albumin [Mass/Vol] 4.3 g/dL Normal 3.5-5.2 [facility] Comment on above: Performed By: #### L WALTER ROONEY, CP #### [address] [place], [place] [address]83 Quality Assurance Lead: Ion Jasso MD Albumin/Glob Ratio 1.6 Normal 1.0-2.5 [facility] Comment on above: Performed By: #### L WALTER ROONEY, CP #### [address] [place], [place] 5647383 Quality Assurance Lead: Ion Jasso MD Alkaline Phos 145 U/L High 35-[address] [facility] Comment on above: Performed By: #### L TORIBIO CDP, CP #### [facility] [address] [place], [place] [address]83 Quality Assurance Lead: Ion Jasso MD ALT [Catalytic activity/Vol] 11 U/L Normal 10-35 [facility] Comment on above: Performed By: #### L TORIBIO CDP, CP #### [facility] [address] [place] [address] Quality Assurance Lead: Ion Jasso MD Anion gap [Moles/Vol] 12 mmol/L Normal 9-16 [facility] Comment on above: Performed By: #### L IP, CDP, CP #### [facility] [address] [place] [address] Quality Assurance Lead: Ion Jasso MD AST [Catalytic activity/Vol] 25 U/L Normal 10-35 [facility] Comment on above: Result Comment: Spec imen hemolysis has exceeded the interference as defined by Joycelyn. Value may be falsely increased. Suggest recollection if clinically indicated. Performed By: #### L IP, CDP, CP #### [facility] [address] [place] [address] Quality Assurance Lead: Ion Jasso MD Bilirubin [Mass/Vol] mg/dL Normal 0.00-1.20 [facility] Comment on above: Performed By: #### L IP, CDP, CP #### [address] [place] [address] Quality Assurance Lead: Ion Jasso MD BUN/CRE Ratio 9 Normal 9-[address] [facility] Comment on above: Performed By: #### L IP, CDP, CP #### [address] [place], [place] 75[address]183 Quality Assurance Lead: Ion Jasso MD Calcium [Mass/Vol] 9.8 mg/dL Normal 8.6-10.4 [facility] Comment on above: Performed By: #### L IP, CDP, CP #### [facility] [address] [place], [place] 1333183 Quality Assurance Lead: Ion Jasso MD Chloride [Moles/Vol] 103 mmol/L Normal 98-107 [facility] Comment on above: Performed By: #### L IP, CDP, CP #### [facility] [address] [place] [address] Quality Assurance Lead: Ion Jasso MD CO2 [Moles/Vol] 22 mmol/L Normal 20-31 [facility] Comment on above: Performed By: #### L IP, CDP, CP #### [facility] [address] [place] [address] Quality Assurance Lead: Ion Jasso MD Creatinine [Mass/Vol] 0.8 mg/dL Normal 0.50-0.90 [facility] Comment on above: Performed By: #### L IP, CDP, CP #### [facility] [address] [place] [address] Quality Assurance Lead: Ion Jasso MD GFR/1.73 sq M.predicted among non-blacks MDRD (S/P/Bld) [Vol rate/Area] mL/min/{1.73_m2} Normal >60 [facility] Comment on above: Result Comment: These [...] By: #### L TORIBIO CDP, CP #### [address] [place] [address] Quality Assurance Lead: Ion Jasso MD Glucose [Mass/Vol] 96 mg/dL Normal 74-99 [facility] Comment on above: Performed By: #### L WALTER ROONEY, CP #### [facility] [address] [place] [address] Quality Assurance Lead: Ion Jasso MD Potassium [Moles/Vol] 4.6 mmol/L Normal 3.7-5.3 [facility] Comment on above: Result Comment: Spec imen hemolysis has exceeded the interference as defined by Joycelyn. Value may be falsely increased. Suggest recollection if clinically indicated. Performed By: #### L IP, CDP, CP #### [facility] [address] [place] [address] Quality Assurance Lead: Ion Jasso MD Protein [Mass/Vol] 7.0 g/dL Normal 6.6-8.7 [facility] Comment on above: Performed By: #### L WALTER ROONEY, CP #### [facility] [address] [place] [address] Quality Assurance Lead: Ion Jasso MD Sodium [Moles/Vol] 137 mmol/L Normal 136-145 [facility] Comment on above: Performed By: #### L WALTER ROONEY, CP #### [facility] [address] [place] [address] Quality Assurance Lead: Ion Jasso MD Urea nitrogen [Mass/Vol] 7 mg/dL Normal 6-20 [facility] Comment on above: Performed By: #### L WALTER ROONEY, CP #### [facility] [address] [place] [address] Quality Assurance Lead: Ion Jasso MD Comprehensive Metabolic Pane [facility] 01-07-2024 Albumin [Mass/Vol] 4.3 g/dL 3.5 - 5.2 g/dL [facility] Albumin/Globulin [Mass ratio] 1.6 {ratio} 1.0 - 2.5 [facility] ALP [Catalytic activity/Vol] 145 U/L High 35 - 104 U/L [facility] ALT [Catalytic activity/Vol] 11 U/L 10 - 35 U/L [facility] Anion gap [Moles/Vol] 12 mmol/L 9 - 16 mmol/L [facility] AST [Catalytic activity/Vol] 25 U/L 10 - 35 U/L [facility] Comment on above: Specimen hemolysis h as exceeded the interference as defined by Joycelyn. Value may be falsely increased. Suggest recollection if clinically indicated. Bilirubin [Mass/Vol] mg/dL 0.00 - 1.20 mg/dL [facility] Calcium [Mass/Vol] 9.8 mg/dL 8.6 - 10. 4 mg/dL [facility] Chloride [Moles/Vol] 103 mmol/L 98 - 10 7 mmol/L [facility] CO2 [Moles/Vol] 22 mmol/L 20 - 31 mmol/L [facility] Creatinine [Mass/Vol] 0.8 mg/dL 0.50 - 0.90 mg/dL [facility] Kaylyn Prather Rate - PINF [facility] Comment on above: These results are [...] [Mass/Vol] 96 mg/dL 74 - 99 mg/dL [facility] Potassium [Moles/Vol] 4.6 mmol/L 3.7 - 5.3 mmol/L [facility] Comment on above: Specimen hemolysis h as exceeded the interference as defined by Joycelyn. Value may be falsely increased. Suggest recollection if clinically indicated. Protein [Mass/Vol] 7.0 g/dL 6.6 - 8.7 g/dL [facility] Sodium [Moles/Vol] 137 mmol/L 136 - 145 mmol/L [facility] Urea nitrogen [Mass/Vol] 7 mg/dL 6 - 20 mg/dL [facility] Urea nitrogen/Creatinine [Mass ratio] 9 mg/mg 9 - 20 [facility] Lactic Acidon 01-07-2024 Lactate (BldV) [Moles/Vol] 1.3 mmol/L 0.5 - 2.2 mmol/L [facility] Lactate [Moles/Vol] 1.3 mmol/L Normal 0.5-2.2 [facility] Comment on above: Performed By: #### B MP, LIVP, LIP #### [facility] [address] [place] [address] Quality Assurance Lead: Ion Jasso MD Lipaseon 01-07-2024 Lipase [Catalytic activity/Vol] 144 U/L High 13 - 60 U/L [facility] Lipase [Catalytic activity/Vol] 144 U/L High 13-60 [facility] Comment on above: Performed By: #### L IP, CDP, CP #### [facility] [address] [place] [address] Quality Assurance Lead: Ion Jasso MD No Panel Informationon 01-06 Interpretation and review of laboratory results Abnormal [facility] Urinalysis w/ Microon 2023 Bilirubin, SemiQt,Ur Negative Normal NEG [facility] Comment on above: Performed By: #### L IP, CDP, CP #### [facility] [address] [place], [facility]83 Quality Assurance Lead: Ion Jasso MD Blood, Urine Negative Normal NEG [facility] Comment on above: Performed By: #### L IP, CDP, CP #### [facility] [address] [place], [facility]83 Quality Assurance Lead: Ion Jasso MD Clarity (U) Clear Normal CLEAR [facility] Comment on above: Performed By: #### L IP, CDP, CP #### [address] [place], [place] [address]3 Quality Assurance Lead: Ion Jasso MD Color (U) Yellow Normal YEL [facility] Comment on above: Performed By: #### L IP, CDP, CP #### [facility] [address] [place], [place] 27[address]83 Quality Assurance Lead: Ion Jasso MD Epithelial cells LM Ql (Urine sed) 0 TO 2 Normal 0-25 [facility] Comment on above: Performed By: #### L IP, CDP, CP #### [facility] [address] [place] [address] Quality Assurance Lead: Ion Jasso MD Glucose Ql (U) Negative Normal NEG [facility] Comment on above: Performed By: #### L IP, CDP, CP #### [facility] [address] [place] [address] Dr[place], [place] 09[address]83 Quality Assurance Lead: Ion Jasso MD Ketones Ql (U) Negative Normal NEG [facility] in [facility] Comment on above: Performed By: #### L IP, CDP, CP #### [facility] [address] [place] [address] Dr[place], [place] 1475783 Quality Assurance Lead: Ion Jasso MD Leukocyte esterase Test strip Ql (U) Negative Normal NEG [facility] Comment on above: Performed By: #### L IP, CDP, CP #### [address] [place], [place] 5538183 Quality Assurance Lead: Ion Jasso MD Nitrite,Ur Negative Normal NEG [facility] Comment on above: Performed By: #### L IP, CDP, CP #### [address] [place], [facility]83 Quality Assurance Lead: Ion Jasso MD PH,Ur 6.0 Normal 5.0-9.0 [facility] Comment on above: Performed By: #### L IP, CDP, CP #### [address] [place], [place] 148[address]83 Quality Assurance Lead: Ion Jasso MD Protein Ql (U) Negative Normal NEG [facility] Comment on above: Performed By: #### L IP, CDP, CP #### [address] [place], [facility]83 Quality Assurance Lead: Ion Jasso MD Spec. [place],Ur 1.010 Normal 1.010-1.02 0 [facility] Comment on above: Performed By: #### L IP, CDP, CP #### [address] [place], [place] 2374483 Quality Assurance Lead: Ion Jasso MD Urine RBC's None Normal 0-2 [facility] Comment on above: Performed By: #### L IP, CDP, CP #### [facility] [address] [place] [address] Quality Assurance Lead: Ion Jasso MD Urine WBC's 0 TO 2 Normal 0-5 [facility] Comment on above: Performed By: #### L WALTER ROONEY, CP #### [facility] [address] [place] [address] Quality Assurance Lead: Ion Jasso MD Urobilinogen,Ur Normal Normal 0.0-1.0 [facility] Comment on above: Performed By: #### L WALTER ROONEY, CP #### [facility] [address] [place] [address] Quality Assurance Lead: Ion Jasso MD Urinalysis with Microscopico n 01-07-2024 Bilirubin Ql (U) Negative NEGATIVE [facility] Clarity (U) Clear Clear [facility] Color (U) Yellow Yellow [facility] Epithelial cells LM.HPF (Urine sed) [#/Area] 0 TO 2 [facility] Glucose Test strip (U) [Mass/Vol] Negative NEGATIVE mg/dL [facility] Hemoglobin Auto test strip Ql (U) Negative NEGATIVE [facility] Ketones (U) [Mass/Vol] Negative NEGAT MATTHIAS mg/dL [facility] Leukocyte esterase Test strip Ql (U) Negative NEGATIVE [facility] Nitrite Ql (U) Negative NEGATIVE [facility] pH (U) 6.0 [pH] 5.0 - 9.0 [facility] Protein (U) [Mass/Vol] Negative NEGAT MATTHIAS mg/dL [facility] RBC LM.HPF (Urine sed) [#/Area] None [facility] Specific gravity (U) [Rel density] 1.010 1.010 - 1.020 [facility] Urobilinogen Qn (U) Normal 0.0 - 1. 0 EU/dL [facility] WBC LM.HPF (Urine sed) [#/Area] 0 TO 2 [facility] BASIC METABOLIC PANLon 12-28 Anion gap [Moles/Vol] 8 mmol/L Normal 5-15 [facility] Comment on above: Performed By: #### 8 9579-7, 48778-9, 5643-2, 51862-5, LIVR, 3040-3, CBCA, BMP #### [facility] ([id number]) [address] [place] [address] 23219 Calcium [Mass/Vol] 9.7 mg/dL Normal 8.5-10.5 [facility] Comment on above: Performed By: #### 8 9579-7, 50451-0, 5643-2, 49253-1, LIVR, 3040-3, CBCA, BMP #### [facility] ([id number]) [address] [place] [address] 68991 Chloride [Moles/Vol] 106 mmol/L Normal 98-109 [facility] Comment on above: Performed By: #### 8 9579-7, 93165-9, 5643-2, 99558-6, LIVR, 3040-3, CBCA, BMP #### [facility] ([id number]) [address] [place] [address] 65796 CO2 [Moles/Vol] 24 mmol/L Normal 22-32 [facility] Comment on above: Performed By: #### 8 9579-7, 07213-2, 5643-2, 44611-6, LIVR, 3040-3, CBCA, BMP #### [facility] ([id number]) [address] [place] [address] 94305 Creatinine [Mass/Vol] 0.88 mg/dL Normal 0.40-1.00 [facility] Comment on above: Result Comment: METH OD TRACEABLE TO IDMS STANDARD Performed By: #### 8 9579-7, 42367-3, 5643-2, 17621-1, LIVR, 3040-3, CBCA, BMP #### [facility] ([id number]) [address] [place] [address] 16237 GFR/1.73 sq M.predicted among non-blacks MDRD (S/P/Bld) [Vol rate/Area] 78 mL/min/{1.73_m2} Normal >59 [facility] Comment on above: Result Comment: Reported eGFR is based on the CKD-EPI 2020 equation that does not use a race coefficient. Performed By: #### 8 9579-7, 02619-4, 5643-2, 25896-1, LIVR, 3040-3, CBCA, BMP #### [facility] ([id number]) [address] [place] [address] 11144 Glucose [Mass/Vol] 82 mg/dL Normal 65-99 [facility] Comment on above: Performed By: #### 8 9579-7, 42234-8, 5643-2, 20624-2, LIVR, 3040-3, CBCA, BMP #### [facility] ([id number]) [address] [place] [address] 63342 Potassium [Moles/Vol] 4.2 mmol/L Normal 3.5-5.0 [facility] Comment on above: Result Comment: SPEC IMEN HEMOLYZED, RESULTS INCREASED Performed By: #### 8 9579-7, 40367-4, 5643-2, 28487-7, LIVR, 3040-3, CBCA, BMP #### [facility] ([id number]) [address] [place] [address] 94141 Sodium [Moles/Vol] 138 mmol/L Normal 134-146 [facility] Comment on above: Performed By: #### 8 9579-7, 97466-8, 5643-2, 20375-9, LIVR, 3040-3, CBCA, BMP #### [facility] ([id number]) [address] [place] [address] 64003 Urea nitrogen [Mass/Vol] 12 mg/dL Normal 5-23 [facility] Comment on above: Performed By: #### 8 9579-7, 53201-0, 5643-2, 37268-4, LIVR, 3040-3, CBCA, BMP #### [facility] ([id number]) [address] [place] [address] 47487 CBC AND AUTO DIFFon 10-22-20 24 ABSOLUTE BASOPHIL 0.1 X10E9/L Normal 0.0-0.2 [facility] Comment on above: Performed By: #### 8 9579-7, 81369-6, 5643-2, 30280-9, LIVR, 3040-3, CBCA, BMP #### [facility] ([id number]) [address] [place] [address] 15285 ABSOLUTE NEUTROPHIL 3.9 X10E9/L Normal 1.5-6.6 [facility] Comment on above: Performed By: #### 8 9579-7, 15480-0, 5643-2, 34820-4, LIVR, 3040-3, CBCA, BMP #### [facility] ([id number]) [address] [place] [address] 64790 Basophils/100 WBC (Bld) 1.3 % Normal [facility] Comment on above: Performed By: #### 8 9579-7, 39773-4, 5643-2, 19293-6, LIVR, 3040-3, CBCA, BMP #### [facility] ([id number]) [address] [place] [address] 81265 Eosinophils (Bld) [#/Vol] 0.2 10*3/uL Normal 0.0-0.4 [facility] Comment on above: Performed By: #### 8 9579-7, 56054-7, 5643-2, 00222-8, LIVR, 3040-3, CBCA, BMP #### [facility] ([id number]) [address] [place] [address] 45073 Eosinophils/100 WBC (Bld) 2.3 % Normal [facility] Comment on above: Performed By: #### 8 9579-7, 86012-8, 5643-2, 74699-5, LIVR, 3040-3, CBCA, BMP #### [facility] ([id number]) [address] [place] [address] 43401 Erythrocyte distribution width (RBC) [Ratio] 13.2 % Normal 11.5-15.0 [facility] Comment on above: Performed By: #### 8 9579-7, 05146-1, 5643-2, 45604-1, LIVR, 3040-3, CBCA, BMP #### [facility] ([id number]) [address] [place] [address] 89075 Hematocrit (Bld) [Volume fraction] 41.8 % Normal 35-47 [facility] Comment on above: Performed By: #### 8 9579-7, 57173-3, 5643-2, 75519-5, LIVR, 3040-3, CBCA, BMP #### [facility] ([id number]) [address] [place] [address] 45358 Hemoglobin (Bld) [Mass/Vol] 14.3 g/dL Normal 11.7-15.5 [facility] Comment on above: Performed By: #### 8 9579-7, 03289-3, 5643-2, 85764-3, LIVR, 3040-3, CBCA, BMP #### [facility] ([id number]) [address] [place] [address] 48007 Lymphocytes (Bld) [#/Vol] 2.5 10*3/uL Normal 1.0-3.5 [facility] Comment on above: Performed By: #### 8 9579-7, 22896-8, 5643-2, 99631-8, LIVR, 3040-3, CBCA, BMP #### [facility] ([id number]) [address] [place] [address] 61188 Lymphocytes/100 WBC (Bld) 33.1 % Normal [facility] Comment on above: Performed By: #### 8 9579-7, 87831-4, 5643-2, 85104-7, LIVR, 3040-3, CBCA, BMP #### [facility] ([id number]) [address] [place] [address] 13345 MCH (RBC) [Entitic mass] 34.0 pg Normal 27-34 [facility] Comment on above: Performed By: #### 8 9579-7, 64961-8, 5643-2, 49413-0, LIVR, 3040-3, CBCA, BMP #### [facility] ([id number]) [address] [place] [address] 22332 MCHC (RBC) [Mass/Vol] 34.1 g/dL Normal 32-36 [facility] Comment on above: Performed By: #### 8 9579-7, 41385-6, 5643-2, 38189-7, LIVR, 3040-3, CBCA, BMP #### [facility] ([id number]) [address] [place] [address] 92443 MCV (RBC) [Entitic vol] 100 fL Normal 80-100 [facility] Comment on above: Performed By: #### 8 9579-7, 65507-0, 5643-2, 86755-3, LIVR, 3040-3, CBCA, BMP #### [facility] ([id number]) [address] [place] [address] 38381 Monocytes (Bld) [#/Vol] 0.9 10*3/uL Normal 0-0.9 [facility] Comment on above: Performed By: #### 8 9579-7, 76037-6, 5643-2, 60129-5, LIVR, 3040-3, CBCA, BMP #### [facility] ([id number]) [address] [place] [address] 35563 Monocytes/100 WBC (Bld) 12.0 % Normal [facility] Comment on above: Performed By: #### 8 9579-7, 80248-3, 5643-2, 46921-5, LIVR, 3040-3, CBCA, BMP #### [facility] ([id number]) [address] [place] [address] 88363 Neutrophils/100 WBC (Bld) 51.3 % Normal [facility] Comment on above: Performed By: #### 8 9579-7, 36209-5, 5643-2, 52721-6, LIVR, 3040-3, CBCA, BMP #### [facility] ([id number]) [address] [place] [address] 13067 Platelet mean volume (Bld) [Entitic vol] 8.2 fL Normal 7-12 [facility] Comment on above: Performed By: #### 8 9579-7, 55136-5, 5643-2, 11635-8, LIVR, 3040-3, CBCA, BMP #### [facility] ([id number]) [address] [place] [address] 35571 Platelets (Bld) [#/Vol] 266 10*3/uL Normal 150-450 [facility] Comment on above: Performed By: #### 8 9579-7, 18872-8, 5643-2, 21788-1, LIVR, 3040-3, CBCA, BMP #### [facility] ([id number]) [address] [place] [address] 43134 RBC COUNT 4.19 X10E12/L Normal 3.80-5.20 [facility] Comment on above: Performed By: #### 8 9579-7, 39397-6, 5643-2, 08491-9, LIVR, 3040-3, CBCA, BMP #### [facility] ([id number]) [address] [place] [address] WBC (Bld) [#/Vol] 7.7 10*3/uL Normal 4.0-11.0 [facility] Comment on above: Performed By: #### 8 9579-7, 28486-2, 5643-2, 19851-8, LIVR, 3040-3, CBCA, BMP #### [facility] ([id number]) [address] [place] [address] CT ABDOMEN AND PELVIS WO CON Ton [...] Presley MD on 12/29/2023 6:27 AM Normal [facility] ETHANOLon 12-29-2023 Ethanol [Mass/Vol] mg/dL Normal 0.00-0.08 [facility] Comment on above: Result Comment: This report is intended for use in clinical monitoring or management of patients. Performed By: #### 8 9579-7, 05759-5, 5643-2, 21392-9, LIVR, 3040-3, CBCA, BMP #### [facility] ([id number]) [address] [place] [address] 17490 Fibrin D-dimer DDU (PPP) [Ma ss/Vol]on 12-29-2023 D DIMER <150 Normal <255 [facility] Comment on above: Result Comment: Results <255 ng/mL DDU: The presence of a VTE can safely be excluded with a negative D-Dimer result and Wells score. A negative result doesn't exclude the possibility of DIC. The test be repeated along with other diagnostic tests if the patient's symptoms persist or worsen. [email or web address] Performed By: #### 8 9579-7, 69452-2, 5643-2, 57467-3, LIVR, 3040-3, CBCA, BMP #### [facility] ([id number]) [address] [place] [address] 97292 LIPASEon 12-29-2023 Lipase [Catalytic activity/Vol] 55 U/L High 17-40 [facility] Comment on above: Performed By: #### 8 9579-7, 77804-1, 5643-2, 56901-5, LIVR, 3040-3, CBCA, BMP #### [facility] ([id number]) [address] [place] [address] 42788 LIVER PANELon 12-29-2023 Albumin [Mass/Vol] 3.9 g/dL Normal 3.2-5.3 [facility] Comment on above: Performed By: #### 8 9579-7, 17289-7, 5643-2, 87295-0, LIVR, 3040-3, CBCA, BMP #### [facility] ([id number]) [address] [place] [address] 21559 ALP [Catalytic activity/Vol] 111 U/L Normal 39-130 [facility] Comment on above: Performed By: #### 8 9579-7, 12692-4, 5643-2, 02951-4, LIVR, 3040-3, CBCA, BMP #### [facility] ([id number]) [address] [place] [address] 86829 ALT [Catalytic activity/Vol] 11 U/L Normal 0-31 [facility] Comment on above: Performed By: #### 8 9579-7, 35291-6, 5643-2, 74488-4, LIVR, 3040-3, CBCA, BMP #### [facility] ([id number]) [address] [place] [address] 15014 AST [Catalytic activity/Vol] 23 U/L Normal 0-41 [facility] Comment on above: Performed By: #### 8 9579-7, 20694-5, 5643-2, 36385-6, LIVR, 3040-3, CBCA, BMP #### [facility] ([id number]) [address] [place] [address] 93879 Bilirubin [Mass/Vol] 0.5 mg/dL Normal 0.3-1.2 [facility] Comment on above: Result Comment: RESU LTS QUESTIONABLE DUE TO HEMOLYSIS Performed By: #### 8 9579-7, 31128-6, 5643-2, 35965-2, LIVR, 3040-3, CBCA, BMP #### [facility] ([id number]) [address] [place] [address] 65674 Bilirubin.direct [Mass/Vol] 0.3 mg/dL Normal 0.0-0.4 [facility] Comment on above: Performed By: #### 8 9579-7, 25630-6, 5643-2, 97198-4, LIVR, 3040-3, CBCA, BMP #### [facility] ([id number]) [address] [place] [id number] Protein [Mass/Vol] 6.9 g/dL Normal 6.0-8.0 [facility] Comment on above: Performed By: #### 8 9579-7, 34137-8, 5643-2, 52965-4, LIVR, 3040-3, CBCA, BMP #### [facility] ([id number]) [address] [place] [id number] MAGNESIUMon 12-29-2023 Magnesium [Mass/Vol] 2.2 mg/dL Normal 1.8-2.6 [facility] Comment on above: Performed By: #### 8 9579-7, 25102-0, 5643-2, 22584-6, LIVR, 3040-3, CBCA, BMP #### [facility] ([id number]) [address] [place] [id number] Troponin I.cardiac High sens itivity method [Mass/Vol]on 12-29-2023 1 HOUR TROP I, HIGH SENSITIVITY 2 ng/L Normal <16 [facility] Comment on above: Performed By: #### 8 9579-7 #### [facility] ([id number]) [address] [place] [id number] TROPONIN I, HIGH SENSITIVITY 2 ng/L Normal <16 [facility] Comment on above: Performed By: #### 8 9579-7, 71217-9, 5643-2, 10046-7, LIVR, 3040-3, CBCA, BMP #### [facility] ([id number]) [address] [place] [address] [id number] CBC with Diffon 09-29-2023 Basophils (Bld) [#/Vol] 0.05 10*3/uL [facility] Basophils/100 WBC (Bld) 0 % 0 - 2 % [facility] Eosinophils (Bld) [#/Vol] 0.05 10*3/uL [facility] Eosinophils/100 WBC (Bld) 0 % Low 1 - 4 % [facility] Erythrocyte distribution width (RBC) [Ratio] 12.9 % 11.8 - 14.4 % [facility] Hematocrit (Bld) [Volume fraction] 40.3 % 36.3 - 47.1 % [facility] Hemoglobin (Bld) [Mass/Vol] 14.2 g/dL 11.9 - 15.1 g/dL [facility] Immature granulocytes (Bld) [#/Vol] [facility] Immature granulocytes/100 WBC (Bld) 0 % 0 [facility] Interpretation and review of laboratory results Abnormal [facility] Lymphocytes/100 WBC (Bld) 19 % Low 24 - 43 % [facility] Lymphocytes/100 WBC (Bld) 2.18 % [facility] MCH (RBC) [Entitic mass] 33.8 pg High 25.2 - 33.5 pg [facility] MCHC (RBC) [Mass/Vol] 35.2 g/dL High 28.4 - 34.8 g/dL [facility] MCV (RBC) [Entitic vol] 96.0 fL 82.6 - 102.9 fL [facility] Monocytes/100 WBC (Bld) 8 % 3 - 12 % [facility] Monocytes/100 WBC (Bld) 0.94 % [facility] Neutrophils/100 WBC (Bld) 73 % High 36 - 65 % [facility] Nucleated RBC/100 WBC (Bld) [Ratio] 0.0 % 0.0 per 100 WBC [facility] Platelet mean volume (Bld) [Entitic vol] 9.4 fL 8.1 - 13.5 fL [facility] Platelets (Bld) [#/Vol] 193 10*3/uL [facility] RBC (Bld) [#/Vol] 4.20 10*6/uL 3.95 - 5.11 m/uL [facility] Segmented neutrophils/100 WBC (Bld) 8.10 % [facility] WBC other (Bld) [#/Vol] 11.3 [facility] CMPon 09-29-2023 Albumin [Mass/Vol] 4.4 g/dL 3.5 - 5.2 g/dL [facility] Albumin/Globulin [Mass ratio] 1.9 {ratio} 1.0 - 2.5 [facility] ALP [Catalytic activity/Vol] 123 U/L High 35 - 104 U/L [facility] ALT [Catalytic activity/Vol] 15 U/L 5 - 33 U/L [facility] Anion gap [Moles/Vol] 10 mmol/L 9 - 17 mmol/L [facility] AST [Catalytic activity/Vol] 21 U/L NINF - 32 U/L [facility] Bilirubin [Mass/Vol] 0.3 mg/dL 0.3 - 1 .2 mg/dL [facility] Calcium [Mass/Vol] 10.0 mg/dL 8.6 - 10. 4 mg/dL [facility] Chloride [Moles/Vol] 104 mmol/L 98 - 10 7 mmol/L [facility] CO2 [Moles/Vol] 24 mmol/L 20 - 31 mmol/L [facility] Creatinine [Mass/Vol] 0.8 mg/dL 0.5 - 0.9 mg/dL [facility] Est, Glom Filt Rate 88 - [facility] Comment on above: These results are [...] 126 mg/dL High 70 - 99 mg/dL [facility] Potassium [Moles/Vol] 3.5 mmol/L Low 3.7 - 5.3 mmol/L [facility] Protein [Mass/Vol] 6.7 g/dL 6.4 - 8.3 g/dL [facility] Sodium [Moles/Vol] 138 mmol/L 135 - 144 mmol/L [facility] Urea nitrogen [Mass/Vol] 10 mg/dL 6 - 20 mg/dL [facility] Urea nitrogen/Creatinine [Mass ratio] 13 mg/mg 9 - 20 [facility] Lipaseon 09-29-2023 Lipase [Catalytic activity/Vol] 141 U/L High 13 - 60 U/L [facility] Microscopic Urinalysison Bacteria LM Ql (Urine sed) TRACE Abnormal None [facility] Epithelial cells LM.HPF (Urine sed) [#/Area] 2 TO 5 [facility] Interpretation and review of laboratory results Abnormal [facility] RBC LM.HPF (Urine sed) [#/Area] 0 TO 2 [facility] WBC LM.HPF (Urine sed) [#/Area] 0 TO 2 [facility] No Panel Informationon 09-28 Interpretation and review of laboratory results Abnormal [facility] Urinalysis with Reflex to Cu ltureon 09-29-2023 Bilirubin Ql (U) Negative NEGATIVE [facility] Clarity (U) Clear Clear [facility] Color (U) Yellow Yellow [facility] Glucose Test strip (U) [Mass/Vol] Negative NEGATIVE mg/dL [facility] Hemoglobin Auto test strip Ql (U) Negative NEGATIVE [facility] Interpretation and review of laboratory results Abnormal [facility] Ketones (U) [Mass/Vol] Negative NEGAT [facility]IAS mg/dL [facility] Leukocyte esterase Test strip Ql (U) Negative NEGATIVE [facility] Nitrite Ql (U) Negative NEGATIVE [facility] pH (U) 6.0 [pH] 5.0 - 9.0 [facility] Protein (U) [Mass/Vol] Negative NEGAT MATTHIAS mg/dL [facility] Specific gravity (U) [Rel density] High 1.010 - 1.020 [facility] Urobilinogen Qn (U) Normal 0.0 - 1. 0 EU/dL [facility] UPPER EUSon 09-08-2023 [facility] Gastroenterology Patient Name: Chioma Rainey Procedure Date: 09/08/2023 7:35 AM Date of : 1970 Admit Type: Outpatient Age: 53 Room: EUS Proc Room 01 Gender: Female Note Status: Finalized Attending MD: Sabrina Dee MD, MPH, [id number] Procedure: Upper EUS Indications: Chronic pancreatitis, Celiac [...] the (more content not included)... LAB, [facility] Radiology Study observation (narrative) [facility] Alanine aminotransferase [En zymatic activity/volume] in Serum or PlasmaOrdered By: Darrel Kellogg on 04-18-2023 ALT [Catalytic activity/Vol] 9 U/L 7-52 [facility] Albumin [Mass/volume] in Ser um or Plasma by Bromocresol green (BCG) dye binding methoOrdered By: Darrel Kellogg on 04-18-2023 Albumin BCG dye [Mass/Vol] 4.5 g/dL 3.5-5.7 [facility] Alkaline phosphatase [Enzyma tic activity/volume] in Serum or PlasmaOrdered By: Darrel Kellogg on 04-18-2023 ALP [Catalytic activity/Vol] 107 U/L 34-104 [facility] Amylase [Enzymatic activity/ volume] in Serum or PlasmaOrdered By: Darrel Kellogg on 04-18-2023 Amylase [Catalytic activity/Vol] 72 U/L 29-103 [facility] Aspartate aminotransferase [ Enzymatic activity/volume] in Serum or PlasmaOrdered By: Darrel Kellogg on 04-18-2023 AST [Catalytic activity/Vol] 14 U/L 13-39 [facility] Basophils Auto (Bld) [#/Vol] Ordered By: Darrel Kellogg on 04-18-2023 Basophils (Bld) [#/Vol] 0.1 10*3/uL 0.0-0.2 [facility] Basophils/100 WBC Auto (Bld) Ordered By: Darrel Kellogg on 04-18-2023 Basophils/100 WBC (Bld) 0.8 % . [facility] Bilirubin.direct [Mass/volum e] in Serum or PlasmaOrdered By: Darrel Kellogg on 04-18-2023 Bilirubin.direct [Mass/Vol] 0.00 mg/dL 0.03-0.18 [facility] Comment on above: If the DBIL is less than 0.1, IBIL is not able to becalculated. Bilirubin.total [Mass/volume ] in Serum or PlasmaOrdered By: Darrel Kellogg on 04-18-2023 Bilirubin [Mass/Vol] 0.3 mg/dL 0.3-1.0 [facility] Calcium [Mass/volume] in Ser um or PlasmaOrdered By: Darrel Kellogg on 04-18-2023 Calcium [Mass/Vol] 11.1 mg/dL 8.6-10.3 [facility] Carbon dioxide, total [Moles /volume] in Serum or PlasmaOrdered By: Darrel Kellogg on 04-18-2023 CO2 [Moles/Vol] 30.2 mmol/L 21.0-31.0 [facility] Chloride [Moles/volume] in S erika or PlasmaOrdered By: Darrel Kellogg on 04-18-2023 Chloride [Moles/Vol] 103 mmol/L 98-107 [facility] Creatinine [Mass/volume] in Serum or PlasmaOrdered By: Darrel Kellogg on 04-18-2023 Creatinine [Mass/Vol] 0.80 mg/dL 0.60-1.20 [facility] Eosinophils Auto (Bld) [#/Vo l]Ordered By: Darrel Kellogg on 04-18-2023 Eosinophils (Bld) [#/Vol] 0.0 10*3/uL 0.0-0.45 [facility] Eosinophils/100 WBC Auto (Bl d)Ordered By: Darrel Kellogg on 04-18-2023 Eosinophils/100 WBC (Bld) 0.2 % . [facility] Erythrocyte distribution wid th Auto (RBC) [Ratio]Ordered By: Darrel Kellogg on 04-18-2023 Erythrocyte distribution width (RBC) [Ratio] 13.4 % 11.9-15.3 [facility] Ethanol [Mass/volume] in Ser um or PlasmaOrdered By: Darrel Kellogg on 04-18-2023 Ethanol [Mass/Vol] mg/dL [facility] Ethanol [Mass/Vol] TNP [facility] Comment on above: Test not performed Globulin Calc (S) [Mass/Vol] Ordered By: Darrel Kellogg on 04-18-2023 Globulin (S) [Mass/Vol] 2.2 g/dL [facility] Glucose [Mass/volume] in Ser um or PlasmaOrdered By: Darrel Kellogg on 04-18-2023 Glucose [Mass/Vol] 108 mg/dL 70-100 [facility] Comment on above: ADA recommended refe rence rangeRandom Glucose Reference Range is dependent on time and content of last meal. Glucose of more than 200 mg/dL in a nonstressed, ambulatory subject supports the diagnosis of Diabetes Mellitus. Hematocrit Auto (Bld) [Volum e fraction]Ordered By: Darrel Kellogg on 04-18-2023 Hematocrit (Bld) [Volume fraction] 41.6 % 34.0-46.4 [facility] Hemoglobin [Mass/volume] in BloodOrdered By: Darrel Kellogg on 04-18-2023 Hemoglobin (Bld) [Mass/Vol] 14.3 g/dL 11.8-15.4 [facility] Leukocytes [#/volume] correc aurelia for nucleated erythrocytes in Blood by Automated counOrdered By: Darrel Kellogg on 04-18-2023 WBC corrected for nucl RBC Auto (Bld) [#/Vol] 12.1 10*3/uL 3.8-11.6 [facility] Lipase [Enzymatic activity/v olume] in Serum or PlasmaOrdered By: Darrel Kellogg on 04-18-2023 Lipase [Catalytic activity/Vol] 47.0 U/L 11.0-82.0 [facility] Lymphocytes Auto (Bld) [#/Vo l]Ordered By: Darrel Kellogg on 04-18-2023 Lymphocytes (Bld) [#/Vol] 1.6 10*3/uL 1.00-4.8 [facility] Lymphocytes/100 WBC Auto (Bl d)Ordered By: Darrel Kellogg on 04-18-2023 Lymphocytes/100 WBC (Bld) 12.8 % . [facility] MCH Auto (RBC) [Entitic mass ]Ordered By: Darrel Kellogg on 04-18-2023 MCH (RBC) [Entitic mass] 32.7 pg 24.7-34.3 [facility] MCHC Auto (RBC) [Mass/Vol]Or dered By: Darrel Kellogg on 04-18-2023 MCHC (RBC) [Mass/Vol] 34.3 g/dL 32.0-35.0 [facility] MCV Auto (RBC) [Entitic vol] Ordered By: Darrel Kellogg on 04-18-2023 MCV (RBC) [Entitic vol] 95.5 fL 80-100 [facility] Monocyte distribution width [Entitic volume] in Blood by AutomatedOrdered By: Darrel Kellogg on 04-18-2023 Monocyte distribution width Auto (Bld) [Entitic vol] 16.25 % 0.00-20.00 [facility] Monocytes Auto (Bld) [#/Vol] Ordered By: Darrel Kellogg on 04-18-2023 Monocytes (Bld) [#/Vol] 0.6 10*3/uL 0.0-0.8 [facility] Monocytes/100 WBC Auto (Bld) Ordered By: Darrel Kellogg on 04-18-2023 Monocytes/100 WBC (Bld) 5.4 % . [facility] Neutrophils Auto (Bld) [#/Vo l]Ordered By: Darrel Kellogg on 04-18-2023 Neutrophils (Bld) [#/Vol] 9.8 10*3/uL 1.8-7.7 [facility] Neutrophils/100 WBC Auto (Bl d)Ordered By: Darrel Kellogg on 04-18-2023 Neutrophils/100 WBC (Bld) 80.8 % . [facility] No Panel InformationOrdered By: Darrel Kellogg on 04-18-2023 Estimated GFR (CKD-EPI) > 60.0 mL/Min [facility] Creatinine Clearance (Chem 64.32 [facility] Nucleated erythrocytes [Pres ence] in Blood by Automated countOrdered By: Darrel Kellogg on 04-18-2023 Nucleated RBC Auto Ql (Bld) 0.0 /100{WBC} 0-0.5 [facility] Platelet mean volume Auto (B ld) [Entitic vol]Ordered By: Darrel Kellogg on 04-18-2023 Platelet mean volume (Bld) [Entitic vol] 8.1 fL 6.3-10.7 [facility] Platelets Auto (Bld) [#/Vol] Ordered By: Darrel Kellogg on 04-18-2023 Platelets (Bld) [#/Vol] 227 10*3/uL 150-450 [facility] Potassium [Moles/volume] in Serum or PlasmaOrdered By: Darrel Kellogg on 04-18-2023 Potassium [Moles/Vol] 3.2 mmol/L 3.5-5.1 [facility] Protein [Mass/volume] in Ser um or PlasmaOrdered By: Darrel Kellogg on 04-18-2023 Protein [Mass/Vol] 6.7 g/dL 6.4-8.9 [facility] RBC Auto (Bld) [#/Vol]Ordere d By: Darrel Kellogg on 04-18-2023 RBC (Bld) [#/Vol] 4.35 10*6/uL 3.60-5.00 [facility] Serum or plasma albumin/glob ulin mass ratioOrdered By: Darrel Kellogg on 04-18-2023 Albumin/Globulin [Mass ratio] 2.0 {ratio} [facility] Serum or plasma anion gap de terminationOrdered By: Darrel Kellogg on 04-18-2023 Anion gap [Moles/Vol] 10.0 mmol/L 6.0-15.0 [facility] Serum or plasma non-glucuron idated bilirubin measurement (mass/volume)Ordered By: Darrel Kellogg on 04-18-2023 Bilirubin.indirect [Mass/Vol] 0.3 mg/dL [facility] Sodium [Moles/volume] in Ser um or PlasmaOrdered By: Darrel Kellogg on 04-18-2023 Sodium [Moles/Vol] 140 mmol/L 136-145 [facility] Urea nitrogen [Mass/volume] in Serum or PlasmaOrdered By: Darrel Kellogg on 04-18-2023 Urea nitrogen [Mass/Vol] 7 mg/dL 7-25 [facility] WBC Auto (Bld) [#/Vol]Ordere d By: Darrel Kellogg on 04-18-2023 WBC (Bld) [#/Vol] 12.1 10*3/uL 3.8-11.6 [facility] Activated partial thrombopla stin time (aPTT) in platelet poor plasma by coagulation aOrdered By: Rivera Lopez on 04-11-2023 aPTT Coag (PPP) [Time] 23.3 s 25.1-36.5 [facility] Comment on above: A hematocrit value g reater than 55% may lead to inaccurate results in coagulation testing. Patients having hematocrit values >55% require a special collection tube for coagulation studies. Please contact the laboratory at [phone] for redraw instructions. Alanine aminotransferase [En zymatic activity/volume] in Serum or PlasmaOrdered By: Rivera Lopez on 04-11-2023 ALT [Catalytic activity/Vol] 13 U/L 7-52 [facility] Albumin [Mass/volume] in Ser um or Plasma by Bromocresol green (BCG) dye binding methoOrdered By: Rivera Lopez on 04-11-2023 Albumin BCG dye [Mass/Vol] 4.5 g/dL 3.5-5.7 [facility] Alkaline phosphatase [Enzyma tic activity/volume] in Serum or PlasmaOrdered By: Rivera Lopez on 04-11-2023 ALP [Catalytic activity/Vol] 111 U/L 34-104 [facility] Aspartate aminotransferase [ Enzymatic activity/volume] in Serum or PlasmaOrdered By: Rivera Lopez on 04-11-2023 AST [Catalytic activity/Vol] 17 U/L 13-39 [facility] Automated erythrocytes count in urine sediment (number/area)Ordered By: Rivera Lopez on 04-11-2023 RBC Auto (Urine sed) [#/Area] 0-1 [HPF] 0-4 [facility] Automated leukocytes count i n urine sediment (number/area)Ordered By: Rivera Lopez on 04-11-2023 WBC Auto (Urine sed) [#/Area] 3-4 [HPF] 0-4 [facility] Basophils Auto (Bld) [#/Vol] Ordered By: Rivera Lopez on 04-11-2023 Basophils (Bld) [#/Vol] 0.1 10*3/uL 0.0-0.2 [facility] Basophils/100 WBC Auto (Bld) Ordered By: Rivera Lopez on 04-11-2023 Basophils/100 WBC (Bld) 0.4 % . [facility] Bilirubin Test strip Ql (U)O rdered By: Rivera Lopez on 04-11-2023 Bilirubin Ql (U) Negative Negative [facility] Bilirubin.direct [Mass/volum e] in Serum or PlasmaOrdered By: Rivera Lopez on 04-11-2023 Bilirubin.direct [Mass/Vol] 0.00 mg/dL 0.03-0.18 [facility] Comment on above: If the DBIL is less than 0.1, IBIL is not able to becalculated. Bilirubin.total [Mass/volume ] in Serum or PlasmaOrdered By: Rivera Lopez on 04-11-2023 Bilirubin [Mass/Vol] 0.3 mg/dL 0.3-1.0 [facility] Calcium [Mass/volume] in Ser um or PlasmaOrdered By: Rivera Lopez on 04-11-2023 Calcium [Mass/Vol] 10.3 mg/dL 8.6-10.3 [facility] Carbon dioxide, total [Moles /volume] in Serum or PlasmaOrdered By: Rivera Lopez on 04-11-2023 CO2 [Moles/Vol] 26.9 mmol/L 21.0-31.0 [facility] Chloride [Moles/volume] in S erika or PlasmaOrdered By: Rivera Lopez on 04-11-2023 Chloride [Moles/Vol] 103 mmol/L 98-107 [facility] Color Auto (U)Ordered By: Og Lopez on 04-11-2023 Color (U) Yellow Yellow [facility] Creatinine [Mass/volume] in Serum or PlasmaOrdered By: Rivera Lopez on 04-11-2023 Creatinine [Mass/Vol] 0.86 mg/dL 0.60-1.20 [facility] Eosinophils Auto (Bld) [#/Vo l]Ordered By: Rivera Lopez on 04-11-2023 Eosinophils (Bld) [#/Vol] 0.0 10*3/uL 0.0-0.45 [facility] Eosinophils/100 WBC Auto (Bl d)Ordered By: Rivera Lopez on 04-11-2023 Eosinophils/100 WBC (Bld) 0.0 % . [facility] Erythrocyte distribution wid th Auto (RBC) [Ratio]Ordered By: Rivera Lopez on 04-11-2023 Erythrocyte distribution width (RBC) [Ratio] 13.6 % 11.9-15.3 [facility] Globulin Calc (S) [Mass/Vol] Ordered By: Rivera Lopez on 04-11-2023 Globulin (S) [Mass/Vol] 2.4 g/dL [facility] Glucose [Mass/volume] in Ser um or PlasmaOrdered By: Rivera Lopez on 04-11-2023 Glucose [Mass/Vol] 121 mg/dL 70-100 [facility] Comment on above: ADA recommended refe rence rangeRandom Glucose Reference Range is dependent on time and content of last meal. Glucose of more than 200 mg/dL in a nonstressed, ambulatory subject supports the diagnosis of Diabetes Mellitus. Hematocrit Auto (Bld) [Volum e fraction]Ordered By: Rivera Lopez on 04-11-2023 Hematocrit (Bld) [Volume fraction] 41.3 % 34.0-46.4 [facility] Hemoglobin [Mass/volume] in BloodOrdered By: Rivrea Lopez on 04-11-2023 Hemoglobin (Bld) [Mass/Vol] 13.7 g/dL 11.8-15.4 [facility] INR in Platelet poor plasma by Coagulation assayOrdered By: Rivera Lopez on 04-11-2023 INR Coag (PPP) [Relative time] 1.0 {INR} [facility] Comment on above: INR Therapeutic Rang [...] on 04-11-2023 Ketones (U) [Mass/Vol] Negative Negative [facility] Laboratory - UrinalysisOrder ed By: Rivera Lopez on 04-11-2023 Hyaline casts LM Ql (Urine sed) None seen [LPF] 0-8 [facility] Leukocytes [#/volume] correc aurelia for nucleated erythrocytes in Blood by Automated counOrdered By: Rivera Lopez on 04-11-2023 WBC corrected for nucl RBC Auto (Bld) [#/Vol] 13.9 10*3/uL 3.8-11.6 [facility] Lipase [Enzymatic activity/v olume] in Serum or PlasmaOrdered By: Rivera Lopez on 04-11-2023 Lipase [Catalytic activity/Vol] 26.0 U/L 11.0-82.0 [facility] Lymphocytes Auto (Bld) [#/Vo l]Ordered By: Rivera Lopez on 04-11-2023 Lymphocytes (Bld) [#/Vol] 1.1 10*3/uL 1.00-4.8 [facility] Lymphocytes/100 WBC Auto (Bl d)Ordered By: Rivera Lopez on 04-11-2023 Lymphocytes/100 WBC (Bld) 8.1 % . [facility] MCH Auto (RBC) [Entitic mass ]Ordered By: Rivera Lopez on 04-11-2023 MCH (RBC) [Entitic mass] 32.2 pg 24.7-34.3 [facility] MCHC Auto (RBC) [Mass/Vol]Or dered By: Rivera Lopez on 04-11-2023 MCHC (RBC) [Mass/Vol] 33.2 g/dL 32.0-35.0 [facility] MCV Auto (RBC) [Entitic vol] Ordered By: Rivera Lopez on 04-11-2023 MCV (RBC) [Entitic vol] 96.8 fL 80-100 [facility] Monocyte distribution width [Entitic volume] in Blood by AutomatedOrdered By: Rivera Lopez on 04-11-2023 Monocyte distribution width Auto (Bld) [Entitic vol] 17.01 % 0.00-20.00 [facility] Monocytes Auto (Bld) [#/Vol] Ordered By: Rivera Lopez on 04-11-2023 Monocytes (Bld) [#/Vol] 0.6 10*3/uL 0.0-0.8 [facility] Monocytes/100 WBC Auto (Bld) Ordered By: Rivera Lopez on 04-11-2023 Monocytes/100 WBC (Bld) 4.3 % . [facility] Neutrophils Auto (Bld) [#/Vo l]Ordered By: Rivera Lopez on 04-11-2023 Neutrophils (Bld) [#/Vol] 12.1 10*3/uL 1.8-7.7 [facility] Neutrophils/100 WBC Auto (Bl d)Ordered By: Rivera Lopez on 04-11-2023 Neutrophils/100 WBC (Bld) 87.2 % . [facility] Nitrite Test strip Ql (U)Ord ered By: Rivera Lopez on 04-11-2023 Nitrite Ql (U) Negative Negative [facility] No Panel InformationOrdered By: Rivera Lopez on 04-11-2023 Estimated GFR (CKD-EPI) > 60.0 mL/Min [facility] Creatinine Clearance (Chem 59.83 [facility] Nucleated erythrocytes [Pres ence] in Blood by Automated countOrdered By: Rivera Lopez on 04-11-2023 Nucleated RBC Auto Ql (Bld) 0.0 /100{WBC} 0-0.5 [facility] Platelet mean volume Auto (B ld) [Entitic vol]Ordered By: Rivera Lopez on 04-11-2023 Platelet mean volume (Bld) [Entitic vol] 7.7 fL 6.3-10.7 [facility] Platelets Auto (Bld) [#/Vol] Ordered By: Rivera Lopez on 04-11-2023 Platelets (Bld) [#/Vol] 262 10*3/uL 150-450 [facility] Potassium [Moles/volume] in Serum or PlasmaOrdered By: Rivera Lopez on 04-11-2023 Potassium [Moles/Vol] 4.0 mmol/L 3.5-5.1 [facility] Protein Auto test strip (U) [Mass/Vol]Ordered By: Rivera Lopez on 04-11-2023 Protein (U) [Mass/Vol] Negative Negative [facility] Protein [Mass/volume] in Ser um or PlasmaOrdered By: Rivera Lopez on 04-11-2023 Protein [Mass/Vol] 6.9 g/dL 6.4-8.9 [facility] Prothrombin time (PT)Ordered By: Rivera Lopez on 04-11-2023 PT Coag (PPP) [Time] 11.2 s 9.0-12.9 [facility] Comment on above: A hematocrit value g reater than 55% may lead to inaccurate results in coagulation testing. Patients having hematocrit values >55% require a special collection tube for coagulation studies. Please contact the laboratory at [phone] for redraw instructions. RBC Auto (Bld) [#/Vol]Ordere d By: Rivera Lopez on 04-11-2023 RBC (Bld) [#/Vol] 4.27 10*6/uL 3.60-5.00 [facility] Serum or plasma albumin/glob ulin mass ratioOrdered By: Rivera Lopez on 04-11-2023 Albumin/Globulin [Mass ratio] 1.9 {ratio} [facility] Serum or plasma anion gap de terminationOrdered By: Rivera Lopez on 04-11-2023 Anion gap [Moles/Vol] 14.1 mmol/L 6.0-15.0 [facility] Serum or plasma non-glucuron idated bilirubin measurement (mass/volume)Ordered By: Rivera Lopez on 04-11-2023 Bilirubin.indirect [Mass/Vol] 0.3 mg/dL [facility] Sodium [Moles/volume] in Ser um or PlasmaOrdered By: Rivera Lopez on 04-11-2023 Sodium [Moles/Vol] 140 mmol/L 136-145 [facility] Specific gravity Auto test s trip (U) [Rel density]Ordered By: Rivera Lopez on 04-11-2023 Specific gravity (U) [Rel density] > 1.050 1.001-1.03 0 [facility] Squamous epithelial cells de tection in urine sediment by light microscopyOrdered By: Rivera Lopez on 04-11-2023 Epithelial cells.squamous LM Ql (Urine sed) 0-1 [HPF] 0-2 [facility] Urea nitrogen [Mass/volume] in Serum or PlasmaOrdered By: Rivera Lopez on 04-11-2023 Urea nitrogen [Mass/Vol] 5 mg/dL 7 [facility] Urine bacteria detection by automated methodOrdered By: Rivera Lopez on 04-11-2023 Bacteria Auto Ql (U) None seen None Seen [facility] Urine clarity by refractomet ry automatedOrdered By: Rivera Lopez on 04-11-2023 Clarity Refractometry automated (U) Turbid Clear [facility] Urine glucose measurement by automated test strip (mass/volume)Ordered By: Rivera Lopez on 04-11-2023 Glucose Auto test strip (U) [Mass/Vol] Normal mg/dL Normal [facility] Urine hemoglobin detection b y automated test stripOrdered By: Rivera Lopez on 04-11-2023 Hemoglobin Auto test strip Ql (U) Negative Negative [facility] Urine leukocyte esterase det ection by automated test stripOrdered By: Rivera Lopez on 04-11-2023 Leukocyte esterase Auto test strip Ql (U) Negative Negative [facility] Urobilinogen Auto test strip (U) [Mass/Vol]Ordered By: Rivera Lopez on 04-11-2023 Urobilinogen (U) [Mass/Vol] Normal mg/dL Normal [facility] [facility] W[facility] Auto (Bld) [#/Vol]Ordere d By: Rivera Lopez on 04-11-2023 WBC (Bld) [#/Vol] 13.9 10*3/uL 3.8-11.6 [facility] pH Auto test strip (U)Ordere d By: Rivera Lopez on 04-11-2023 pH (U) 8.0 [pH] 5.0-9.0 [facility] Alanine aminotransferase [En zymatic activity/volume] in Serum or PlasmaOrdered By: Diomedes Posadas on 04-02-2023 ALT [Catalytic activity/Vol] 11 U/L 7-52 [facility] Albumin [Mass/volume] in Ser um or Plasma by Bromocresol green (BCG) dye binding methoOrdered By: Diomedes Posadas on 04-02-2023 Albumin BCG dye [Mass/Vol] 4.2 g/dL 3.5-5.7 [facility] Alkaline phosphatase [Enzyma tic activity/volume] in Serum or PlasmaOrdered By: Diomedes Posadas on 04-02-2023 ALP [Catalytic activity/Vol] 101 U/L 34-104 [facility] Aspartate aminotransferase [ Enzymatic activity/volume] in Serum or PlasmaOrdered By: Diomedes Posadas on 04-02-2023 AST [Catalytic activity/Vol] 21 U/L 13-39 [facility] Basophils Auto (Bld) [#/Vol] Ordered By: Diomedes Posadas on 04-02-2023 Basophils (Bld) [#/Vol] 0.0 10*3/uL 0.0-0.2 [facility] Basophils/100 WBC Auto (Bld) Ordered By: Diomedes Posadas on 04-02-2023 Basophils/100 WBC (Bld) 0.2 % . [facility] Bilirubin Test strip Ql (U)O rdered By: Diomedes Posadas on 04-02-2023 Bilirubin Ql (U) Negative Negative [facility] Bilirubin.total [Mass/volume ] in Serum or PlasmaOrdered By: Doimedes Posadas on 04-02-2023 Bilirubin [Mass/Vol] 0.3 mg/dL 0.3-1.0 [facility] Calcium [Mass/volume] in Ser um or PlasmaOrdered By: Diomedes Posadas on 04-02-2023 Calcium [Mass/Vol] 9.7 mg/dL 8.6-10.3 [facility] Carbon dioxide, total [Moles /volume] in Serum or PlasmaOrdered By: Diomedes Posadas on 04-02-2023 CO2 [Moles/Vol] 26.3 mmol/L 21.0-31.0 [facility] Chloride [Moles/volume] in S erika or PlasmaOrdered By: Diomedes Posadas on 04-02-2023 Chloride [Moles/Vol] 106 mmol/L 98-107 [facility] Color Auto (U)Ordered By: Reshma shaycarito Posadas on 04-02-2023 Color (U) Yellow Yellow [facility] Creatinine [Mass/volume] in Serum or PlasmaOrdered By: Diomedes Posadas on 04-02-2023 Creatinine [Mass/Vol] 0.82 mg/dL 0.60-1.20 [facility] Eosinophils Auto (Bld) [#/Vo l]Ordered By: Diomedes Posadas on 04-02-2023 Eosinophils (Bld) [#/Vol] 0.1 10*3/uL 0.0-0.45 [facility] Eosinophils/100 WBC Auto (Bl d)Ordered By: Diomedes Posadas on 04-02-2023 Eosinophils/100 WBC (Bld) 1.7 % . [facility] Erythrocyte distribution wid th Auto (RBC) [Ratio]Ordered By: Diomedes Posadas on 04-02-2023 Erythrocyte distribution width (RBC) [Ratio] 13.3 % 11.9-15.3 [facility] Fibrin D-dimer [Presence] in Platelet poor plasma by Latex agglutinationOrdered By: Diomedes Posadas on 04-02-2023 Fibrin D-dimer LA Ql (PPP) < 200 ng/mL 0-243 [facility] Comment on above: The reference range [...] coagulation studies. Please contact the laboratory at [phone] for redraw instructions. Globulin Calc (S) [Mass/Vol] Ordered By: Diomedes Posadas on 04-02-2023 Globulin (S) [Mass/Vol] 2.4 g/dL [facility] Glucose [Mass/volume] in Ser um or PlasmaOrdered By: Diomedes Posadas on 04-02-2023 Glucose [Mass/Vol] 90 mg/dL 70-100 [facility] Comment on above: ADA recommended refe rence rangeRandom Glucose Reference Range is dependent on time and content of last meal. Glucose of more than 200 mg/dL in a nonstressed, ambulatory subject supports the diagnosis of Diabetes Mellitus. Hematocrit Auto (Bld) [Volum e fraction]Ordered By: Diomedes Posadas on 04-02-2023 Hematocrit (Bld) [Volume fraction] 41.8 % 34.0-46.4 [facility] Hemoglobin [Mass/volume] in BloodOrdered By: Diomedes Posadas on 04-02-2023 Hemoglobin (Bld) [Mass/Vol] 14.2 g/dL 11.8-15.4 [facility] Ketones Auto test strip (U) [Mass/Vol]Ordered By: Diomedes Posadas on 04-02-2023 Ketones (U) [Mass/Vol] Negative Negative [facility] Leukocytes [#/volume] correc aurelia for nucleated erythrocytes in Blood by Automated counOrdered By: Diomedes Posadas on 04-02-2023 WBC corrected for nucl RBC Auto (Bld) [#/Vol] 6.2 10*3/uL 3.8-11.6 [facility] Lipase [Enzymatic activity/v olume] in Serum or PlasmaOrdered By: Diomedes Posadas on 04-02-2023 Lipase [Catalytic activity/Vol] 186.0 U/L 11.0-82.0 [facility] Lymphocytes Auto (Bld) [#/Vo l]Ordered By: Diomedes Posadas on 04-02-2023 Lymphocytes (Bld) [#/Vol] 1.8 10*3/uL 1.00-4.8 [facility] Lymphocytes/100 WBC Auto (Bl d)Ordered By: Diomedes Posadas on 04-02-2023 Lymphocytes/100 WBC (Bld) 29.2 % . [facility] MCH Auto (RBC) [Entitic mass ]Ordered By: Diomedes Posadas on 04-02-2023 MCH (RBC) [Entitic mass] 33.1 pg 24.7-34.3 [facility] MCHC Auto (RBC) [Mass/Vol]Or dered By: Diomedes Posadas on 04-02-2023 MCHC (RBC) [Mass/Vol] 34.0 g/dL 32.0-35.0 [facility] MCV Auto (RBC) [Entitic vol] Ordered By: Diomedes Posadas on 04-02-2023 MCV (RBC) [Entitic vol] 97.4 fL 80-100 [facility] Monocyte distribution width [Entitic volume] in Blood by AutomatedOrdered By: Diomedes Posadas on 04-02-2023 Monocyte distribution width Auto (Bld) [Entitic vol] 17.36 % 0.00-20.00 [facility] Monocytes Auto (Bld) [#/Vol] Ordered By: Diomedes Posadas on 04-02-2023 Monocytes (Bld) [#/Vol] 0.6 10*3/uL 0.0-0.8 [facility] Monocytes/100 WBC Auto (Bld) Ordered By: Diomedes Posadas on 04-02-2023 Monocytes/100 WBC (Bld) 9.8 % . [facility] Neutrophils Auto (Bld) [#/Vo l]Ordered By: Diomedes Posadas on 04-02-2023 Neutrophils (Bld) [#/Vol] 3.6 10*3/uL 1.8-7.7 [facility] Neutrophils/100 WBC Auto (Bl d)Ordered By: Diomedes Posadas on 04-02-2023 Neutrophils/100 WBC (Bld) 59.1 % . [facility] Nitrite Test strip Ql (U)Ord ered By: Diomedes Posadas on 04-02-2023 Nitrite Ql (U) Negative Negative [facility] No Panel InformationOrdered By: Diomedes Posadas on 04-02-2023 Estimated GFR (CKD-EPI) > 60.0 mL/Min [facility] Creatinine Clearance (Chem 62.75 [facility] Nucleated erythrocytes [Pres ence] in Blood by Automated countOrdered By: Diomedes Posadas on 04-02-2023 Nucleated RBC Auto Ql (Bld) 0.1 /100{WBC} 0-0.5 [facility] Platelet mean volume Auto (B ld) [Entitic vol]Ordered By: Diomedes Posadas on 04-02-2023 Platelet mean volume (Bld) [Entitic vol] 8.3 fL 6.3-10.7 [facility] Platelets Auto (Bld) [#/Vol] Ordered By: Diomedes Posadas on 04-02-2023 Platelets (Bld) [#/Vol] 236 10*3/uL 150-450 [facility] Potassium [Moles/volume] in Serum or PlasmaOrdered By: Diomedes Posadas on 04-02-2023 Potassium [Moles/Vol] 4.3 mmol/L 3.5-5.1 [facility] Protein Auto test strip (U) [Mass/Vol]Ordered By: Diomedes Posadas on 04-02-2023 Protein (U) [Mass/Vol] Negative Negative [facility] Protein [Mass/volume] in Ser um or PlasmaOrdered By: Diomedes Posadas on 04-02-2023 Protein [Mass/Vol] 6.6 g/dL 6.4-8.9 [facility] RBC Auto (Bld) [#/Vol]Ordere d By: Diomedes Posadas on 04-02-2023 RBC (Bld) [#/Vol] 4.29 10*6/uL 3.60-5.00 [facility] Serum or plasma albumin/glob ulin mass ratioOrdered By: Diomedes Posadas on 04-02-2023 Albumin/Globulin [Mass ratio] 1.8 {ratio} [facility] Serum or plasma anion gap de terminationOrdered By: Diomedes Posadas on 04-02-2023 Anion gap [Moles/Vol] TNP [facility] Comment on above: Test not performed Sodium [Moles/volume] in Ser um or PlasmaOrdered By: Diomedes Posadas on 04-02-2023 Sodium [Moles/Vol] 137 mmol/L 136-145 [facility] Specific gravity Auto test s trip (U) [Rel density]Ordered By: Diomedes Posadas on 04-02-2023 Specific gravity (U) [Rel density] 1.022 1.001-1.03 0 [facility] Troponin I.cardiac [Mass/vol ume] in Serum or Plasma by Detection limit <= 0.01 ng/Ordered By: Diomedes Posadas on 04-02-2023 Troponin I.cardiac DL <= 0.01 ng/mL [Mass/Vol] 2.6 pg/mL 0.0-15.0 [facility] Urea nitrogen [Mass/volume] in Serum or PlasmaOrdered By: Diomedes Posadas on 04-02-2023 Urea nitrogen [Mass/Vol] 7 mg/dL 09-30 [facility] Urine clarity by refractomet ry automatedOrdered By: Diomedes Posadas on 04-02-2023 Clarity Refractometry automated (U) Clear Clear [facility] Urine glucose measurement by automated test strip (mass/volume)Ordered By: Diomedes Posadas on 04-02-2023 Glucose Auto test strip (U) [Mass/Vol] Normal mg/dL Normal [facility] Urine hemoglobin detection b y automated test stripOrdered By: Diomedes Posadas on 04-02-2023 Hemoglobin Auto test strip Ql (U) Negative Negative [facility] Urine leukocyte esterase det ection by automated test stripOrdered By: Diomedes Posadas on 04-02-2023 Leukocyte esterase Auto test strip Ql (U) Negative Negative [facility] Urobilinogen Auto test strip (U) [Mass/Vol]Ordered By: Diomedes Posadas on 04-02-2023 Urobilinogen (U) [Mass/Vol] Normal mg/dL Normal [facility] WBC Auto (Bld) [#/Vol]Ordere d By: Diomedes Posadas on 04-02-2023 WBC (Bld) [#/Vol] 6.2 10*3/uL 3.8-11.6 [facility] pH Auto test strip (U)Ordere d By: Diomedes Posadas on 04-02-2023 pH (U) 5.5 [pH] 5.0-9.0 [facility] Alanine aminotransferase [En zymatic activity/volume] in Serum or PlasmaOrdered By: Diomedes Posadas on 11-09-2022 ALT [Catalytic activity/Vol] 12 U/L 7-52 [facility] Albumin [Mass/volume] in Ser um or Plasma by Bromocresol green (BCG) dye binding methoOrdered By: Diomedes Posadas on 11-09-2022 Albumin BCG dye [Mass/Vol] 4.4 g/dL 3.5-5.7 [facility] Alkaline phosphatase [Enzyma tic activity/volume] in Serum or PlasmaOrdered By: Diomedes Posadas on 11-09-2022 ALP [Catalytic activity/Vol] 126 U/L 34-104 [facility] Aspartate aminotransferase [ Enzymatic activity/volume] in Serum or PlasmaOrdered By: Diomedes Posadas on 11-09-2022 AST [Catalytic activity/Vol] 17 U/L 13-39 [facility] Basophils Auto (Bld) [#/Vol] Ordered By: Diomedes Posadas on 11-09-2022 Basophils (Bld) [#/Vol] 0.1 10*3/uL 0.0-0.2 [facility] Basophils/100 WBC Auto (Bld) Ordered By: Diomedes Posadas on 11-09-2022 Basophils/100 WBC (Bld) 0.9 % . [facility] Bilirubin Test strip Ql (U)O rdered By: Diomedes Posadas on 11-09-2022 Bilirubin Ql (U) Negative Negative [facility] Bilirubin.total [Mass/volume ] in Serum or PlasmaOrdered By: Diomedes Posadas on 11-09-2022 Bilirubin [Mass/Vol] 0.3 mg/dL 0.3-1.0 [facility] Calcium [Mass/volume] in Ser um or PlasmaOrdered By: Diomedes Posadas on 11-09-2022 Calcium [Mass/Vol] 9.7 mg/dL 8.6-10.3 [facility] Carbon dioxide, total [Moles /volume] in Serum or PlasmaOrdered By: Diomedes Posadas on 11-09-2022 CO2 [Moles/Vol] 28.6 mmol/L 21.0-31.0 [facility] Chloride [Moles/volume] in S erika or PlasmaOrdered By: Diomedes Posadas on 11-09-2022 Chloride [Moles/Vol] 107 mmol/L 98-107 [facility] Color Auto (U)Ordered By: Reshma Posadas on 11-09-2022 Color (U) Yellow Yellow [facility] Creatinine [Mass/volume] in Serum or PlasmaOrdered By: Diomedes Posadas on 11-09-2022 Creatinine [Mass/Vol] 0.78 mg/dL 0.60-1.20 [facility] Eosinophils Auto (Bld) [#/Vo l]Ordered By: Diomedes Posadas on 11-09-2022 Eosinophils (Bld) [#/Vol] 0.1 10*3/uL 0.0-0.45 [facility] Eosinophils/100 WBC Auto (Bl d)Ordered By: Diomedes Posadas on 11-09-2022 Eosinophils/100 WBC (Bld) 1.6 % . [facility] Erythrocyte distribution wid th Auto (RBC) [Ratio]Ordered By: Diomedes Posadas on 11-09-2022 Erythrocyte distribution width (RBC) [Ratio] 13.6 % 11.9-15.3 [facility] Globulin Calc (S) [Mass/Vol] Ordered By: Diomedes Posadas on 11-09-2022 Globulin (S) [Mass/Vol] 2.7 g/dL [facility] Glucose [Mass/volume] in Ser um or PlasmaOrdered By: Diomedes Posadas on 11-09-2022 Glucose [Mass/Vol] 96 mg/dL 70-100 [facility] Comment on above: ADA recommended refe rence rangeRandom Glucose Reference Range is dependent on time and content of last meal. Glucose of more than 200 mg/dL in a nonstressed, ambulatory subject supports the diagnosis of Diabetes Mellitus. Hematocrit Auto (Bld) [Volum e fraction]Ordered By: Diomedes Posadas on 11-09-2022 Hematocrit (Bld) [Volume fraction] 44.4 % 34.0-46.4 [facility] Hemoglobin [Mass/volume] in BloodOrdered By: Diomedes Posadas on 11-09-2022 Hemoglobin (Bld) [Mass/Vol] 14.9 g/dL 11.8-15.4 [facility] Ketones Auto test strip (U) [Mass/Vol]Ordered By: Diomedes Posadas on 11-09-2022 Ketones (U) [Mass/Vol] Negative Negative [facility] Leukocytes [#/volume] correc aurelia for nucleated erythrocytes in Blood by Automated counOrdered By: Diomedes Posadas on 11-09-2022 WBC corrected for nucl RBC Auto (Bld) [#/Vol] 9.3 10*3/uL 3.8-11.6 [facility] Lipase [Enzymatic activity/v olume] in Serum or PlasmaOrdered By: Diomedes Posadas on 11-09-2022 Lipase [Catalytic activity/Vol] 78.0 U/L 11.0-82.0 [facility] Lymphocytes Auto (Bld) [#/Vo l]Ordered By: Diomedes Posadas on 11-09-2022 Lymphocytes (Bld) [#/Vol] 2.2 10*3/uL 1.00-4.8 [facility] Lymphocytes/100 WBC Auto (Bl d)Ordered By: Diomedes Posadas on 11-09-2022 Lymphocytes/100 WBC (Bld) 24.0 % . [facility] MCH Auto (RBC) [Entitic mass ]Ordered By: Diomedes Posadas on 11-09-2022 MCH (RBC) [Entitic mass] 32.8 pg 24.7-34.3 [facility] MCHC Auto (RBC) [Mass/Vol]Or dered By: Diomedes Posadas on 11-09-2022 MCHC (RBC) [Mass/Vol] 33.4 g/dL 32.0-35.0 [facility] MCV Auto (RBC) [Entitic vol] Ordered By: Diomedes Posadas on 11-09-2022 MCV (RBC) [Entitic vol] 98.2 fL 80-100 [facility] Monocyte distribution width [Entitic volume] in Blood by AutomatedOrdered By: Diomedes Posadas on 11-09-2022 Monocyte distribution width Auto (Bld) [Entitic vol] 18.76 % 0.00-20.00 [facility] Monocytes Auto (Bld) [#/Vol] Ordered By: Diomedes Posadas on 11-09-2022 Monocytes (Bld) [#/Vol] 0.8 10*3/uL 0.0-0.8 [facility] Monocytes/100 WBC Auto (Bld) Ordered By: Diomedes Posadas on 11-09-2022 Monocytes/100 WBC (Bld) 8.1 % . [facility] Neutrophils Auto (Bld) [#/Vo l]Ordered By: Diomedes Posadas on 11-09-2022 Neutrophils (Bld) [#/Vol] 6.1 10*3/uL 1.8-7.7 [facility] Neutrophils/100 WBC Auto (Bl d)Ordered By: Diomedes Posadas on 11-09-2022 Neutrophils/100 WBC (Bld) 65.4 % . [facility] Nitrite Test strip Ql (U)Ord ered By: Diomedes Posadas on 11-09-2022 Nitrite Ql (U) Negative Negative [facility] No Panel InformationOrdered By: Diomedes Posadas on 11-09-2022 Estimated GFR (CKD-EPI) > 60.0 mL/Min [facility] Creatinine Clearance (Chem 69.00 [facility] Nucleated erythrocytes [Pres ence] in Blood by Automated countOrdered By: Diomedes Posadas on 11-09-2022 Nucleated RBC Auto Ql (Bld) 0.0 /100{WBC} 0-0.5 [facility] Platelet mean volume Auto (B ld) [Entitic vol]Ordered By: Diomedes Posadas on 11-09-2022 Platelet mean volume (Bld) [Entitic vol] 8.3 fL 6.3-10.7 [facility] Platelets Auto (Bld) [#/Vol] Ordered By: Diomedes Posadas on 11-09-2022 Platelets (Bld) [#/Vol] 246 10*3/uL 150-450 [facility] Potassium [Moles/volume] in Serum or PlasmaOrdered By: Diomedes Posadas on 11-09-2022 Potassium [Moles/Vol] 3.7 mmol/L 3.5-5.1 [facility] Protein Auto test strip (U) [Mass/Vol]Ordered By: Diomedes Posadas on 11-09-2022 Protein (U) [Mass/Vol] Negative Negative [facility] Protein [Mass/volume] in Ser um or PlasmaOrdered By: Diomedes Posadas on 11-09-2022 Protein [Mass/Vol] 7.1 g/dL 6.4-8.9 [facility] RBC Auto (Bld) [#/Vol]Ordere d By: Diomedes Posadas on 11-09-2022 RBC (Bld) [#/Vol] 4.52 10*6/uL 3.60-5.00 [facility] Serum or plasma albumin/glob ulin mass ratioOrdered By: Diomedes Posadas on 11-09-2022 Albumin/Globulin [Mass ratio] 1.6 {ratio} [facility] Serum or plasma anion gap de terminationOrdered By: Diomedes Posadas on 11-09-2022 Anion gap [Moles/Vol] 8.1 mmol/L 6.0-15.0 [facility] Sodium [Moles/volume] in Ser um or PlasmaOrdered By: Diomedes Posadas on 11-09-2022 Sodium [Moles/Vol] 140 mmol/L 136-145 [facility] Specific gravity Auto test s trip (U) [Rel density]Ordered By: Diomedes Posadas on 11-09-2022 Specific gravity (U) [Rel density] 1.012 1.001-1.03 0 [facility] Troponin I.cardiac [Mass/vol ume] in Serum or Plasma by Detection limit <= 0.01 ng/Ordered By: Diomedes Posadas on 11-09-2022 Troponin I.cardiac DL <= 0.01 ng/mL [Mass/Vol] 3.0 pg/mL 0.0-15.0 [facility] Urea nitrogen [Mass/volume] in Serum or PlasmaOrdered By: Diomedes Posadas on 11-09-2022 Urea nitrogen [Mass/Vol] 6 mg/dL 7-25 [facility] Urine clarity by refractomet ry automatedOrdered By: Diomedes Posadas on 11-09-2022 Clarity Refractometry automated (U) Clear Clear [facility] Urine glucose measurement by automated test strip (mass/volume)Ordered By: Diomedes Posadas on 11-09-2022 Glucose Auto test strip (U) [Mass/Vol] Normal mg/dL Normal [facility] Urine hemoglobin detection b y automated test stripOrdered By: Diomedes Posadas on 11-09-2022 Hemoglobin Auto test strip Ql (U) Negative Negative [facility] Urine leukocyte esterase det ection by automated test stripOrdered By: Diomedes Posadas on 11-09-2022 Leukocyte esterase Auto test strip Ql (U) Negative Negative [facility] Urobilinogen Auto test strip (U) [Mass/Vol]Ordered By: Diomedes Posadas on 11-09-2022 Urobilinogen (U) [Mass/Vol] Normal mg/dL Normal [facility] WBC Auto (Bld) [#/Vol]Ordere d By: Diomedes Posadas on 11-09-2022 WBC (Bld) [#/Vol] 9.3 10*3/uL 3.8-11.6 [facility] pH Auto test strip (U)Ordere d By: Diomedes Posadas on 11-09-2022 pH (U) 5.5 [pH] 5.0-9.0 [facility] UPPER EUSon 08-12-2022 [facility] Patient Name: Chioma Rainey Procedure Date: 08/12/2022 11:09 AM Date of : 1970 Admit Type: Outpatient Age: 52 Room: EUS Proc Room 01 Gender: Female Note Status: Finalized Attending MD: Sabrina Dee MD, MPH, [id number] Procedure: Upper EUS Indications: Chronic pancreatitis, Epigastric abdominal pain, Celiac plexus block for pain secondary to chronic pancreatitis, Dysphagia, Follow-up of esophageal stenosis, For therapy of esophageal stenosis Providers: Sabrina Dee MD, MPH (Doctor), Kolby Gifford RN (Nurse), Elba Faustin (Nurse), Mary Gaviria Real Estate Salesperson (Real Estate Salesperson) Referring MD: Alexander Nichols MD (Referring MD) [...] by the physician, the nurse and the shop router in the procedure room. Mental Status Examination: [...] abnor (more content not included)... LAB, [facility] Radiology Study observation (narrative) [facility] AMYLASEon 06-13-2022 Amylase [Catalytic activity/Vol] 92 U/L Normal 25-115 [facility] Comment on above: Performed By: #### L IPA, CMP, CRP, NAT #### [facility] [address] [place] [address] Dr. Keturah Fisher CBC AUTO DIFFon 06-13-2022 BASO # 0.1 103/ul Normal 0.0-0.1 [facility] Comment on above: Performed By: #### L IPA, CMP, CRP, NAT #### [facility] [address] [place] [address] Dr. Keturah Fisher Basophils/100 WBC (Bld) 0.7 % Normal 0.2-2.0 [facility] Comment on above: Performed By: #### L IPA, CMP, CRP, NAT #### [facility] [address] [place] [address] Dr. Keturah Fisher EO # 0.1 103/ul Normal 0.0-0.7 [facility] Comment on above: Performed By: #### L IPA, CMP, CRP, NAT #### [facility] [address] [place] [address] Dr. Keturah Fisher Eosinophils/100 WBC (Bld) 1.1 % Normal 0.9-7.0 [facility] Comment on above: Performed By: #### L IPA, CMP, CRP, NAT #### [facility] [address] [place] [address] Dr. Keturah Fisher Erythrocyte distribution width (RBC) [Ratio] 13.0 % Normal 11.0-15.0 [facility] Comment on above: Performed By: #### L IPA, CMP, CRP, NAT #### [facility] [address] [place] [address] Dr. Keturah Fisher Hematocrit (Bld) [Volume fraction] 40.5 % Normal 36.0-48.0 [facility] Comment on above: Performed By: #### L IPA, CMP, CRP, NAT #### [facility] [address] [place] [address] Dr. Keturah Fisher Hemoglobin (Bld) [Mass/Vol] 13.9 g/dL Normal 12.0-16.0 [facility] Comment on above: Performed By: #### L IPA, CMP, CRP, NAT #### [facility] [address] [place] [address] Dr. Keturah Fisher IG # 0.03 10e3/ul Normal 0.00-0.03 [facility] Comment on above: Performed By: #### L IPA, CMP, CRP, NAT #### [facility] [address] [place] [address] Dr. Keturah Fisher IG % 0.3 % Normal 0.0-0.5 [facility] Comment on above: Performed By: #### L IPA, CMP, CRP, NAT #### [facility] [address] [place] [address] Dr. Keturah Fisher LYMPH # 2.9 103/ul Normal 1.2-3.8 [facility] Comment on above: Performed By: #### L IPA, CMP, CRP, NAT #### [facility] [address] [place] [address] Dr. Keturah Fisher Lymphocytes/100 WBC (Bld) 25.0 % Normal 20.5-60.0 [facility] Comment on above: Performed By: #### L IPA, CMP, CRP, NAT #### [facility] [address] [place] [address] Dr. Keturah Fisher MANUAL DIFF REQ NO Normal [facility] Comment on above: Performed By: #### L IPA, CMP, CRP, NAT #### [facility] [address] [place] [address] Dr. Keturah Fisher MCH (RBC) [Entitic mass] 33.3 pg Normal 26.7-34.0 [facility] Comment on above: Performed By: #### L IPA, CMP, CRP, NAT #### [facility] [address] [place] [address] Dr. Keturah Fisher MCHC (RBC) [Mass/Vol] 34.3 g/dL Normal 29.9-35.2 [facility] Comment on above: Performed By: #### L IPA, CMP, CRP, NAT #### [facility] [address] [place] [address] Dr. Keturah Fisher MCV (RBC) [Entitic vol] 96.9 fL Normal 81.0-99.0 [facility] Comment on above: Performed By: #### L IPA, CMP, CRP, NAT #### [facility] [address] [place] [address] Dr. Keturah Fisher MONO # 0.7 103/ul Normal 0.3-0.8 [facility] Comment on above: Performed By: #### L IPA, CMP, CRP, NAT #### [facility] [address] [place] [address] Dr. Keturah Fisher Monocytes/100 WBC (Bld) 5.6 % Normal 1.7-12.0 [facility] Comment on above: Performed By: #### L IPA, CMP, CRP, NAT #### [facility] [address] [place] [address] Dr. Keturah Fisher NEUT # 7.8 103/ul Critically high 1.4-6.[address] [facility] Comment on above: Performed By: #### L IPA, CMP, CRP, NAT #### [facility] [address] [place] [address] Dr. Keturah Fisher Neutrophils/100 WBC (Bld) 67.3 % Normal 43.0-75.0 [facility] Comment on above: Performed By: #### L IPA, CMP, CRP, NAT #### [facility] [address] [place] [address] Dr. Keturah Fisher Platelet mean volume (Bld) [Entitic vol] 9.5 fL Normal 9.5-13.5 [facility] Comment on above: Performed By: #### L IPA, CMP, CRP, NAT #### [facility] [address] [address] [address] Keturah Fisher PLT 227 103/ul Normal 150-450 [facility] Comment on above: Performed By: #### L IPA, CMP, CRP, NAT #### [facility] [address] [place] [address] Dr. Keturah Fisher RBC 4.18 106/ul Critically low 4.20-5.40 [facility] Comment on above: Performed By: #### L IPA, CMP, CRP, NAT #### [facility] [address] [place] [address] Dr. Keturah Fisher WBC 11.5 103/ul Critically high 4.0-11.0 [facility] Comment on above: Performed By: #### L IPA, CMP, CRP, NAT #### [facility] [address] [place] [address] Dr. Keturah Fisher LIPASEon 06-13-2022 Lipase [Catalytic activity/Vol] 168.0 U/L Normal 73.0-393.0 [facility] Comment on above: Performed By: #### L IPA, CMP, CRP, NAT #### [facility] [address] [place] [address] Dr. Keturah Fisher PROF 14(COMP METB)on 023 Albumin [Mass/Vol] 3.6 g/dL Normal 3.4-5.0 [facility] Comment on above: Performed By: #### L IPA, CMP, CRP, NAT #### [facility] [address] [place] [address] Dr. Keturah Fisher Albumin/Globulin [Mass ratio] 1.1 {ratio} Normal [facility] Comment on above: Performed By: #### L IPA, CMP, CRP, NAT #### [facility] [address] [place] [address] Dr. Keturah Fisher ALP [Catalytic activity/Vol] 132 U/L Critically high 46-116 [facility] Comment on above: Performed By: #### L IPA, CMP, CRP, NAT #### [facility] [address] [place] [address] Dr. Keturah Fisher ALT [Catalytic activity/Vol] 20 U/L Normal 14-59 [facility] Comment on above: Performed By: #### L IPA, CMP, CRP, NAT #### [facility] [address] [place] [address] Dr. Keturah Fisher Anion gap [Moles/Vol] 13.7 mmol/L Normal Th e [facility] Comment on above: Performed By: #### L IPA, CMP, CRP, NAT #### [facility] [address] [place] [address] Dr. Keturah Fisher AST [Catalytic activity/Vol] 19 U/L Normal 15-37 [facility] Comment on above: Performed By: #### L IPA, CMP, CRP, NAT #### [facility] [address] [place] [address] Dr. Keturah Fisher Bilirubin [Mass/Vol] 0.1 mg/dL Critically low 0.2-1.0 [facility] Comment on above: Performed By: #### L IPA, CMP, CRP, NAT #### [facility] [address] [place] [address] Dr. Keturah Fisher Calcium [Mass/Vol] 10.1 mg/dL Normal 8.5-10.1 [facility] Comment on above: Performed By: #### L IPA, CMP, CRP, NAT #### [facility] [address] [place] [address] Dr. Keturah Fisher Chloride [Moles/Vol] 104 mmol/L Normal 98-107 [facility] Comment on above: Performed By: #### L IPA, CMP, CRP, NAT #### [facility] [address] [place] [address] Dr. Keturah Fisher CO2 [Moles/Vol] 26.7 mmol/L Normal 21.0-32.0 [facility] Comment on above: Performed By: #### L IPA, CMP, CRP, NAT #### [facility] [address] [place] [address] Dr. Keturah Fisher Creatinine [Mass/Vol] 0.83 mg/dL Normal 0.55-1.02 [facility] Comment on above: Performed By: #### L IPA, CMP, CRP, NAT #### [facility] [address] [address] [address] Keturah Fisher EGFR-AF DUTCH >60 Normal >=60 [facility] Comment on above: Performed By: #### L IPA, CMP, CRP, NTA #### [facility] [address] [address] [address] Keturah Fisher EGFR-NON AF DUTCH >60 Normal >=60 [facility] Comment on above: Performed By: #### L IPA, CMP, CRP, NAT #### [facility] [address] [address] [address] Keturah Fisher Globulin (S) [Mass/Vol] 3.4 g/dL Normal [facility] Comment on above: Performed By: #### L IPA, CMP, CRP, NAT #### [facility] [address] [address] [address] Keturah Fisher Glucose [Mass/Vol] 115 mg/dL Critically high 74-106 [facility] Comment on above: Performed By: #### L IPA, CMP, CRP, NAT #### [facility] [address] [address] [address] Keturah Fisher Potassium [Moles/Vol] 3.4 mmol/L Critically low 3.5-5.1 [facility] Comment on above: Performed By: #### L IPA, CMP, CRP, NAT #### [facility] [address] [address] [address] Keturah Fisher Protein [Mass/Vol] 7.0 g/dL Normal 6.4-8.2 [facility] Comment on above: Performed By: #### L IPA, CMP, CRP, NAT #### [facility] [address] [address] [address] Keturah Fisher Sodium [Moles/Vol] 141 mmol/L Normal 136-145 [facility] Comment on above: Performed By: #### L IPA, CMP, CRP, NAT #### [facility] [address] [address] [address] Keturah Fisher Urea nitrogen [Mass/Vol] 9.0 mg/dL Normal 7.0-18.0 [facility] Comment on above: Performed By: #### L IPA, CMP, CRP, NAT #### [facility] [address] [address] [address] Keturah Fisher Urea nitrogen/Creatinine [Mass ratio] 10.8 mg/mg Normal [facility] Comment on above: Performed By: #### L IPA, CMP, CRP, NAT #### [facility] [address] [address] [address] Keturah Fisher XR ABD FLAT UP_PA [...] ION KRUSE Date: 2022-06-13 17:10 Normal [facility] AMYLASEon 03-29-2022 Amylase [Catalytic activity/Vol] 141 U/L Critically high 25-115 [facility] Comment on above: Performed By: #### L IVER, LIPA, BMP, NAT ####[facility] [address] [place], [place] [address]LyDr. Keturah Fisher CBC AUTO DIFFon 03-29-2022 BASO # 0.1 103/ul Normal 0.0-0.1 [facility] Comment on above: Performed By: #### L IPA, CMP, CRP, NAT #### [facility] [address] [address] [address] Keturah Fisher Basophils/100 WBC (Bld) 0.6 % Normal 0.2-2.0 [facility] Comment on above: Performed By: #### L IPA, CMP, CRP, NAT #### [facility] [address] [address] [address] Keturah Fisher EO # 0.1 103/ul Normal 0.0-0.7 [facility] Comment on above: Performed By: #### L IPA, CMP, CRP, NAT #### [facility] [address] [place] [address] Dr. Keturah Fisher Eosinophils/100 WBC (Bld) 0.7 % Critically low 0.9-7.0 [facility] Comment on above: Performed By: #### L IPA, CMP, CRP, NAT #### [facility] [address] [place] [address] Dr. Keturah Fisher Erythrocyte distribution width (RBC) [Ratio] 12.9 % Normal 11.0-15.0 [facility] Comment on above: Performed By: #### L IPA, CMP, CRP, NAT #### [facility] [address] [place] [address] Dr. Keturah Fisher Hematocrit (Bld) [Volume fraction] 39.7 % Normal 36.0-48.0 [facility] Comment on above: Performed By: #### L IPA, CMP, CRP, NAT #### [facility] [address] [place] [address] Dr. Keturah Fisher Hemoglobin (Bld) [Mass/Vol] 14.7 g/dL Normal 12.0-16.0 [facility] Comment on above: Performed By: #### L IPA, CMP, CRP, NAT #### [facility] [address] [place] [address] Dr. Keturah Fisher IG # 0.04 10e3/ul Critically high 0.00-0.03 [facility] Comment on above: Performed By: #### L IPA, CMP, CRP, NAT #### [facility] [address] [place] [address] Dr. Keturah Fisher IG % 0.4 % Normal 0.0-0.5 [facility] Comment on above: Performed By: #### L IPA, CMP, CRP, NAT #### [facility] [address] [place] [address] Dr. Keturah Fisher LYMPH # 2.1 103/ul Normal 1.2-3.8 [facility] Comment on above: Performed By: #### L IPA, CMP, CRP, NAT #### [facility] [address] [place] [address] Dr. Keturah Fisher Lymphocytes/100 WBC (Bld) 21.2 % Normal 20.5-60.0 [facility] Comment on above: Performed By: #### L IPA, CMP, CRP, NAT #### [facility] [address] [place] [address] Dr. Keturah Fisher MANUAL DIFF REQ NO Normal [facility] Comment on above: Performed By: #### L IPA, CMP, CRP, ANT #### [facility] [address] [place] [address] Dr. Keturah Fisher MCH (RBC) [Entitic mass] 33.0 pg Normal 26.7-34.0 [facility] Comment on above: Performed By: #### L IPA, CMP, CRP, NAT #### [facility] [address] [place] [address] Dr. Keturah Fisher MCHC (RBC) [Mass/Vol] 37.0 g/dL Critically high 29.9-35.2 [facility] Comment on above: Performed By: #### L IPA, CMP, CRP, NAT #### [facility] [address] [place] [address] Dr. Keturah Fisher MCV (RBC) [Entitic vol] 89.0 fL Normal 81.0-99.0 [facility] Comment on above: Performed By: #### L IPA, CMP, CRP, NAT #### [facility] [address] [place] [address] Dr. Keturah Fisher MONO # 1.0 103/ul Critically high 0.3-0.[address] [facility] Comment on above: Performed By: #### L IPA, CMP, CRP, NAT #### [facility] [address] [place] [address] Dr. Keturah Fisher Monocytes/100 WBC (Bld) 10.3 % Normal 1.7-12.0 [facility] Comment on above: Performed By: #### L IPA, CMP, CRP, NAT #### [facility] [address] [place] [address] Dr. Keturah Fisher NEUT # 6.5 103/ul Normal 1.4-6.5 [facility] Comment on above: Performed By: #### L IPA, CMP, CRP, NAT #### [facility] [address] [place] [address] Dr. Keturah Fisher Neutrophils/100 WBC (Bld) 66.8 % Normal 43.0-75.0 [facility] Comment on above: Performed By: #### L IPA, CMP, CRP, NAT #### [facility] [address] [place] [address] Dr. Keturah Fisher Platelet mean volume (Bld) [Entitic vol] 9.2 fL Critically low 9.5-13.5 [facility] Comment on above: Performed By: #### L IPA, CMP, CRP, NAT #### [facility] [address] [place] [address] Dr. Keturah Fisher PLT 229 103/ul Normal 150-450 [facility] Comment on above: Performed By: #### L IPA, CMP, CRP, NAT #### [facility] [address] [place] [address] Dr. Keturah Fisher RBC 4.46 106/ul Normal 4.20-5.40 [facility] Comment on above: Performed By: #### L IPA, CMP, CRP, NAT #### [facility] [address] [place] [address] Dr. Keturah Fisher WBC 9.7 103/ul Normal 4.0-11.0 [facility] Comment on above: Performed By: #### L IPA, CMP, CRP, NAT #### [facility] [address] [place] [address] Dr. Keturah Fisher LACTATE/LACTIC ACIDon 2022 Lactate [Moles/Vol] 0.5 mmol/L Normal 0.4-1.9 [facility] Comment on above: Performed By: #### L IPA, CMP, CRP, NAT #### [facility] [address] [place] [address] Dr. Keturah Fisher LIPASEon 03-29-2022 Lipase [Catalytic activity/Vol] 308.0 U/L Normal 73.0-393.0 [facility] Comment on above: Performed By: #### L IVER, LIPA, BMP, NAT ####[facility] [address] [address]Dr. Keturah Fisher LIVER PROFILEon 03-29-2022 Albumin [Mass/Vol] 3.3 g/dL Critically low 3.4-5.0 [facility] Comment on above: Performed By: #### L IVER, LIPA, BMP, NAT ####[facility] [address] [address]Dr. Keturah Fisher Albumin/Globulin [Mass ratio] 0.8 {ratio} Normal [facility] Comment on above: Performed By: #### L IVER, LIPA, BMP, NAT ####[facility] [address] [place], [place] [address]Dr. Keturah Fisher ALP [Catalytic activity/Vol] 182 U/L Critically high 46-116 [facility] Comment on above: Performed By: #### L IVER, LIPA, BMP, NAT ####[facility] [address] [place], [place] [address]Dr. Keturah Fisher ALT [Catalytic activity/Vol] 16 U/L Normal 14-59 [facility] Comment on above: Performed By: #### L IVER, LIPA, BMP, NAT ####[facility] [address] [address]Dr. Keturah Fisher AST [Catalytic activity/Vol] 26 U/L Normal 15-37 [facility] Comment on above: Performed By: #### L IVER, LIPA, BMP, NAT ####[facility] [address] [address]Dr. Keturah Fisher BILI, CONJUGATED 0.0 mg/dL Normal 0.0-0.2 [facility] Comment on above: Performed By: #### L IVER, LIPA, BMP, NAT ####[facility] [address] [address]Dr. Keturah Fisher Bilirubin [Mass/Vol] 0.3 mg/dL Normal 0.2-1.0 [facility] Comment on above: Performed By: #### L IVER, LIPA, BMP, NAT ####[facility] [address] [address]Dr. Keturah Fisher Globulin (S) [Mass/Vol] 3.9 g/dL Normal [facility] Comment on above: Performed By: #### L IVER, LIPA, BMP, NAT ####[facility] [address] [place], [place] [address]Dr. Keturah Fisher Protein [Mass/Vol] 7.2 g/dL Normal 6.4-8.2 [facility] Comment on above: Performed By: #### L IVER, LIPA, BMP, NAT ####[facility] [address] [place], [place] [address]Dr. Keturah Fisher PROF CHEM 8 (BAS METB)on Anion gap [Moles/Vol] 14.6 mmol/L Normal [facility] Comment on above: Performed By: #### L IVER, LIPA, BMP, NAT ####[facility] [address] [place], [place] [address]Dr. Keturah Fisher Calcium [Mass/Vol] 10.1 mg/dL Normal 8.5-10.1 [facility] Comment on above: Performed By: #### L IVER, LIPA, BMP, NAT ####[facility] [address] [place], [place] [address]Dr. Keturah Fisher Chloride [Moles/Vol] 104 mmol/L Normal 98-107 [facility] Comment on above: Performed By: #### L IVER, LIPA, BMP, NAT ####[facility] [address] [place], [place] [address]Dr. Keturah Fisher CO2 [Moles/Vol] 24.8 mmol/L Normal 21.0-32.0 [facility] Comment on above: Performed By: #### L IVER, LIPA, BMP, NAT ####[facility] [address] [place], [place] [address]Dr. Keturah Fisher Creatinine [Mass/Vol] 0.61 mg/dL Normal 0.55-1.02 [facility] Comment on above: Performed By: #### ROB DOUGHERTY BMP, NAT ####[facility] [address] [address]Dr. Keturah Fisher EGFR-AF DUTCH >60 Normal >=60 [facility] Comment on above: Performed By: #### Elva IVHERMINIA LIPA BMP, NAT ####[facility] [address] [address]Dr. Keturah Fisher EGFR-NON AF DUTCH >60 Normal >=60 [facility] Comment on above: Performed By: #### ROB DOUGHERTY BMP, NAT ####[facility] [address] [address]Dr. Keturah Fisher Glucose [Mass/Vol] 98 mg/dL Normal 74-106 [facility] Comment on above: Performed By: #### ROB DOUGHERTY BMP, NAT ####[facility] [address] [place], [place] [address]Dr. Keturah Fisher Potassium [Moles/Vol] 4.4 mmol/L Normal 3.5-5.1 [facility] Comment on above: Performed By: #### ROB DOUGHERTY BMP, NAT ####[facility] [address] [address]Dr. Keturah Fisher Sodium [Moles/Vol] 139 mmol/L Normal 136-145 [facility] Comment on above: Performed By: #### L IVHERMINIA LIPA, BMP, NAT ####[facility] [address] [address]Dr. Keturah Fisher Urea nitrogen [Mass/Vol] 7.0 mg/dL Normal 7.0-18.0 [facility] Comment on above: Performed By: #### L IVHERMINIA LIPA, BMP, NAT ####[facility] [address] [address]Dr. Keturah Fisher Urea nitrogen/Creatinine [Mass ratio] 11.5 mg/mg Normal [facility] Comment on above: Performed By: #### L ELSY, ROB, FRANNIE, NAT ####[facility] [address] [place], [place] [address]Ko. Keturah Fisher Albumin [Mass/volume] in Ser um or PlasmaOrdered By: Agustin Llanes on 03-22-2022 Albumin [Mass/Vol] 4.1 g/dL 3.2-5.5 [facility] Automated erythrocytes count in urine sediment (number/area)Ordered By: Agustin Llanes on 03-22-2022 RBC Auto (Urine sed) [#/Area] 3-4 [HPF] 0-4 [facility] Automated leukocytes count i n urine sediment (number/area)Ordered By: Agustin Llanes on 03-22-2022 WBC Auto (Urine sed) [#/Area] 10-19 [HPF] 0-4 [facility] Basophils Auto (Bld) [#/Vol] Ordered By: Agustin Llanes on 03-22-2022 Basophils (Bld) [#/Vol] 0.1 10*3/uL 0.0-0.2 [facility] Basophils/100 WBC Auto (Bld) Ordered By: Agustin Llanes on 03-22-2022 Basophils/100 WBC (Bld) 0.9 % . [facility] Bilirubin Test strip Ql (U)O rdered By: Agustin Llanes on 03-22-2022 Bilirubin Ql (U) Negative Negative [facility] Color Auto (U)Ordered By: Vita Llanes on 03-22-2022 Color (U) Yellow Yellow [facility] Creatinine and Glomerular fi ltration rate.predicted panel (S/P/Bld)Ordered By: Agustin Llanes on 03-22-2022 Creatinine [Mass/Vol] 0.74 mg/dL 0.44-1.03 [facility] Direct bilirubin measurement Ordered By: Agustin Llanes on 03-22-2022 Bilirubin.direct [Mass/Vol] 0.3 mg/dL 0.0-0.4 [facility] Eosinophils Auto (Bld) [#/Vo l]Ordered By: Agustin Llanes on 03-22-2022 Eosinophils (Bld) [#/Vol] 0.1 10*3/uL 0.0-0.45 [facility] Eosinophils/100 WBC Auto (Bl d)Ordered By: Agustin Llanes on 03-22-2022 Eosinophils/100 WBC (Bld) 0.7 % . [facility] Erythrocyte distribution wid th Auto (RBC) [Ratio]Ordered By: Agustin Llanes on 03-22-2022 Erythrocyte distribution width (RBC) [Ratio] 13.9 % 11.9-15.3 [facility] Estimated glomerular filtrat ion rate (GFR) non- AmericanOrdered By: Agustin Llanes on 03-22-2022 GFR/1.73 sq M.predicted among non-blacks MDRD (S/P/Bld) [Vol rate/Area] > 60 mL/Min [facility] Globulin Calc (S) [Mass/Vol] Ordered By: Agustin Llanes on 03-22-2022 Globulin (S) [Mass/Vol] 3.1 g/dL [facility] HCG ( test) IA.rapi d Ql (U)Ordered By: Agustin Llanes on 03-22-2022 HCG ( test) Ql (U) Negative [facility] Hematocrit Auto (Bld) [Volum e fraction]Ordered By: Agustin Llanes on 03-22-2022 Hematocrit (Bld) [Volume fraction] 45.7 % 34.0-46.4 [facility] Hemoglobin [Mass/volume] in BloodOrdered By: Agustin Llanes on 03-22-2022 Hemoglobin (Bld) [Mass/Vol] 15.2 g/dL 11.8-15.4 [facility] Ketones Auto test strip (U) [Mass/Vol]Ordered By: Agustin Llanes on 03-22-2022 Ketones (U) [Mass/Vol] Negative Negative [facility] - Chemistry and C hemistry - challengeOrdered By: Agustin Llanes on 03-22-2022 Lipase [Catalytic activity/Vol] 122.0 U/L 22-51 [facility] - UrinalysisOrder ed By: Agustin Llanes on 03-22-2022 Hyaline casts LM Ql (Urine sed) 0-8 [LPF] 0-8 [facility] Leukocytes [#/volume] correc aurelia for nucleated erythrocytes in Blood by Automated counOrdered By: Agustin Llanes on 03-22-2022 WBC corrected for nucl RBC Auto (Bld) [#/Vol] 12.4 10*3/uL 3.8-11.6 [facility] Lymphocytes Auto (Bld) [#/Vo l]Ordered By: Agustin Llanes on 03-22-2022 Lymphocytes (Bld) [#/Vol] 2.2 10*3/uL 1.00-4.8 [facility] Lymphocytes/100 WBC Auto (Bl d)Ordered By: Agustin Llanes on 03-22-2022 Lymphocytes/100 WBC (Bld) 18.0 % . [facility] MCH Auto (RBC) [Entitic mass ]Ordered By: Agustin Llanes on 03-22-2022 MCH (RBC) [Entitic mass] 32.5 pg 24.7-34.3 [facility] MCHC Auto (RBC) [Mass/Vol]Or dered By: Agustin Llanes on 03-22-2022 MCHC (RBC) [Mass/Vol] 33.2 g/dL 32.0-35.0 [facility] MCV Auto (RBC) [Entitic vol] Ordered By: Agustin Llanes on 03-22-2022 MCV (RBC) [Entitic vol] 98.0 fL 80-100 [facility] Monocyte distribution width [Entitic volume] in Blood by AutomatedOrdered By: Agustin Llanes on 03-22-2022 Monocyte distribution width Auto (Bld) [Entitic vol] 18.78 % 0.00-20.00 [facility] Monocytes Auto (Bld) [#/Vol] Ordered By: Agustin Llanes on 03-22-2022 Monocytes (Bld) [#/Vol] 1.0 10*3/uL 0.0-0.8 [facility] Monocytes/100 WBC Auto (Bld) Ordered By: Agustin Llanes on 03-22-2022 Monocytes/100 WBC (Bld) 8.0 % . [facility] Neutrophils Auto (Bld) [#/Vo l]Ordered By: Agustin Llanes on 03-22-2022 Neutrophils (Bld) [#/Vol] 9.0 10*3/uL 1.8-7.7 [facility] Neutrophils/100 WBC Auto (Bl d)Ordered By: Agustin Llanes on 03-22-2022 Neutrophils/100 WBC (Bld) 72.4 % . [facility] Nitrite Test strip Ql (U)Ord ered By: Agustin Llanes on 03-22-2022 Nitrite Ql (U) Positive Negative [facility] No Panel InformationOrdered By: Agustin Llanes on 03-22-2022 Estimated GFR () > 60 mL/Min [facility] Comment on above: GFR estimated refere nce range: According to KDOQI guidelines, <60 ml/min/1.73m2 is sufficient to diagnose a patient with chronic kidney disease. Pharmacy Creatinine Clearance (Chem 70.34 [facility] Nucleated erythrocytes [Pres ence] in Blood by Automated countOrdered By: Agustin Llanes on 03-22-2022 Nucleated RBC Auto Ql (Bld) 0.0 /100{WBC} 0-0.5 [facility] Platelet mean volume Auto (B ld) [Entitic vol]Ordered By: Agustin Llanes on 03-22-2022 Platelet mean volume (Bld) [Entitic vol] 8.0 fL 6.3-10.7 [facility] Platelets Auto (Bld) [#/Vol] Ordered By: Agustin Llanes on 03-22-2022 Platelets (Bld) [#/Vol] 266 10*3/uL 150-450 [facility] Protein Auto test strip (U) [Mass/Vol]Ordered By: Agustin Llanes on 03-22-2022 Protein (U) [Mass/Vol] Negative Negative [facility] Protein [Mass/volume] in Ser um or PlasmaOrdered By: Agustin Llanes on 03-22-2022 Protein [Mass/Vol] 7.2 g/dL 6.1-7.9 [facility] RBC Auto (Bld) [#/Vol]Ordere d By: Agustin Llanes on 03-22-2022 RBC (Bld) [#/Vol] 4.67 10*6/uL 3.60-5.00 [facility] Serum or plasma alanine hughes otransferase measurement without P-5'-P (enzymatic activiOrdered By: Agustin Llanes on 03-22-2022 ALT No additional P-5'-P [Catalytic activity/Vol] 19 U/L 10-60 [facility] Serum or plasma albumin/glob ulin mass ratioOrdered By: Agustin Llanes on 03-22-2022 Albumin/Globulin [Mass ratio] 1.3 {ratio} [facility] Serum or plasma alkaline jaqueline sphatase measurement (enzymatic activity/volume)Ordered By: Agustin Llanes on 03-22-2022 ALP [Catalytic activity/Vol] 156 U/L 32-92 [facility] Serum or plasma anion gap de terminationOrdered By: Agustin Llanes on 03-22-2022 Anion gap [Moles/Vol] 12.6 mmol/L 6.0-15.0 [facility] Serum or plasma aspartate am inotransferase measurement (enzymatic activity/volume)Ordered By: Agustin Llanes on 03-22-2022 AST [Catalytic activity/Vol] 29 U/L 10-42 [facility] Serum or plasma calcium priscilla urement (mass/volume)Ordered By: Agustin Llanes on 03-22-2022 Calcium [Mass/Vol] 9.9 mg/dL 8.2-10.2 [facility] Serum or plasma chloride daron surement (moles/volume)Ordered By: Agustin Llanes on 03-22-2022 Chloride [Moles/Vol] 103 mmol/L 95-114 [facility] Serum or plasma glucose priscilla urement (mass/volume)Ordered By: Agustin Llanes on 03-22-2022 Glucose [Mass/Vol] 106 mg/dL 70-100 [facility] Comment on above: ADA recommended refe rence rangeRandom Glucose Reference Range is dependent on time and content of last meal. Glucose of more than 200 mg/dL in a nonstressed, ambulatory subject supports the diagnosis of Diabetes Mellitus. Serum or plasma non-glucuron idated bilirubin measurement (mass/volume)Ordered By: Agustin Llanes on 03-22-2022 Bilirubin.indirect [Mass/Vol] 0.2 mg/dL [facility] Serum or plasma potassium me asurement (moles/volume)Ordered By: Agustin Llanes on 03-22-2022 Potassium [Moles/Vol] 4.5 mmol/L 3.5-5.1 [facility] Serum or plasma sodium measu rement (moles/volume)Ordered By: Agustin Llanes on 03-22-2022 Sodium [Moles/Vol] 138 mmol/L 136-146 [facility] Serum or plasma total biliru bin measurement (mass/volume)Ordered By: Agustin Llanes on 03-22-2022 Bilirubin [Mass/Vol] 0.5 mg/dL 0.3-1.2 [facility] Serum or plasma total carbon dioxide measurement (moles/volume)Ordered By: Agustin Llanes on 03-22-2022 CO2 [Moles/Vol] 26.9 mmol/L 22.0-30.0 [facility] Serum or plasma urea nitroge n measurement (mass/volume)Ordered By: Agustin Llanes on 03-22-2022 Urea nitrogen [Mass/Vol] 8 mg/dL 9 [facility] Specific gravity Auto test s trip (U) [Rel density]Ordered By: Agustin Llanes on 03-22-2022 Specific gravity (U) [Rel density] 1.011 1.001-1.03 0 [facility] Squamous epithelial cells de tection in urine sediment by light microscopyOrdered By: Agustin Llanes on 03-22-2022 Epithelial cells.squamous LM Ql (Urine sed) 1-2 [HPF] 0-2 [facility] Urine bacteria detection by automated methodOrdered By: Agustin Llanes on 03-22-2022 Bacteria Auto Ql (U) 1+ None Seen [facility] Urine clarity by refractomet ry automatedOrdered By: Agustin Llanes on 03-22-2022 Clarity Refractometry automated (U) Clear Clear [facility] Urine glucose measurement by automated test strip (mass/volume)Ordered By: Agustin Llanes on 03-22-2022 Glucose Auto test strip (U) [Mass/Vol] Normal mg/dL Normal [facility] Urine hemoglobin detection b y automated test stripOrdered By: Agustin Llanes on 03-22-2022 Hemoglobin Auto test strip Ql (U) Negative Negative [facility] Urine leukocyte esterase det ection by automated test stripOrdered By: Agustin Llanes on 03-22-2022 Leukocyte esterase Auto test strip Ql (U) 2+ Negative [facility] Urobilinogen Auto test strip (U) [Mass/Vol]Ordered By: Agustin Llanes on 03-22-2022 Urobilinogen (U) [Mass/Vol] Normal mg/dL Normal [facility] WBC Auto (Bld) [#/Vol]Ordere d By: Agustin Llanes on 03-22-2022 WBC (Bld) [#/Vol] 12.4 10*3/uL 3.8-11.6 [facility] pH Auto test strip (U)Ordere d By: Agustin Llanes on 03-22-2022 pH (U) 5.5 [pH] 5.0-9.0 [facility] AMYLASEon 03-19-2022 Amylase [Catalytic activity/Vol] 297 U/L Critically high 25-115 [facility] Comment on above: Performed By: #### L IPA, CMP, CRP, NAT #### [facility] [address] [place] [address] Dr. Keturah Fisher CBC AUTO DIFFon 03-19-2022 BASO # 0.1 103/ul Normal 0.0-0.1 [facility] Comment on above: Performed By: #### L IPA, CMP, CRP, NAT #### [facility] [address] [place] [address] Dr. Keturah Fisher Basophils/100 WBC (Bld) 0.6 % Normal 0.2-2.0 [facility] Comment on above: Performed By: #### L IPA, CMP, CRP, NAT #### [facility] [address] [place] [address] Dr. Keturah Fisher EO # 0.1 103/ul Normal 0.0-0.7 [facility] Comment on above: Performed By: #### L IPA, CMP, CRP, NAT #### [facility] [address] [place] [address] Dr. Keturah Fisher Eosinophils/100 WBC (Bld) 0.5 % Critically low 0.9-7.0 [facility] Comment on above: Performed By: #### L IPA, CMP, CRP, NAT #### [facility] [address] [place] [address] Dr. Keturah Fisher Erythrocyte distribution width (RBC) [Ratio] 13.4 % Normal 11.0-15.0 [facility] Comment on above: Performed By: #### L IPA, CMP, CRP, NAT #### [facility] [address] [place] [address] Dr. Keturah Fisher Hemoglobin (Bld) [Mass/Vol] 15.7 g/dL Normal 12.0-16.0 [facility] Comment on above: Performed By: #### L IPA, CMP, CRP, NAT #### [facility] [address] [address] [address] Keturah Fisher IG # 0.06 10e3/ul Critically high 0.00-0.03 [facility] Comment on above: Performed By: #### L IPA, CMP, CRP, NAT #### [facility] [address] [place] [address] Dr. Keturah Fisher IG % 0.4 % Normal 0.0-0.5 [facility] Comment on above: Performed By: #### L IPA, CMP, CRP, NAT #### [facility] [address] [place] [address] Dr. Keturah Fisher LYMPH # 2.6 103/ul Normal 1.2-3.8 [facility] Comment on above: Performed By: #### L IPA, CMP, CRP, NAT #### [facility] [address] [place] [address] Dr. Keturah Fisher Lymphocytes/100 WBC (Bld) 18.1 % Critically low 20.5-60.0 [facility] Comment on above: Performed By: #### L IPA, CMP, CRP, NAT #### [facility] [address] [place] [address] Dr. Keturah Fisher MANUAL DIFF REQ NO Normal [facility] Comment on above: Performed By: #### L IPA, CMP, CRP, NAT #### [facility] [address] [place] [address] Dr. Keturah Fisher MCH (RBC) [Entitic mass] 32.4 pg Normal 26.7-34.0 [facility] Comment on above: Performed By: #### L IPA, CMP, CRP, NAT #### [facility] [address] [place] [address] Dr. Keturah Fisher MCHC (RBC) [Mass/Vol] 32.5 g/dL Normal 29.9-35.2 [facility] Comment on above: Performed By: #### L IPA, CMP, CRP, NAT #### [facility] [address] [place] [address] Dr. Keturah Fisher MCV (RBC) [Entitic vol] 99.8 fL Critically high 81.0-99.0 [facility] Comment on above: Performed By: #### L IPA, CMP, CRP, NAT #### [facility] [address] [place] [address] Dr. Keturah Fisher MONO # 0.9 103/ul Critically high 0.3-0.[address] [facility] Comment on above: Performed By: #### L IPA, CMP, CRP, NAT #### [facility] [address] [place] [address] Dr. Keturah Fisher Monocytes/100 WBC (Bld) 5.9 % Normal 1.7-12.0 [facility] Comment on above: Performed By: #### L IPA, CMP, CRP, NAT #### [facility] [address] [place] [address] Dr. Keturah Fisher NEUT # 10.8 103/ul Critically high 1.4-6.5 [facility] Comment on above: Performed By: #### L IPA, CMP, CRP, NAT #### [facility] [address] [place] [address] Dr. Keturah Fisher Neutrophils/100 WBC (Bld) 74.5 % Normal 43.0-75.0 [facility] Comment on above: Performed By: #### L IPA, CMP, CRP, NAT #### [facility] [address] [place] [address] Dr. Keturah Fisher Platelet mean volume (Bld) [Entitic vol] 9.7 fL Normal 9.5-13.5 [facility] Comment on above: Performed By: #### L IPA, CMP, CRP, NAT #### [facility] [address] [place] [address] Dr. Keturah Fisher PLT 279 103/ul Normal 150-450 [facility] Comment on above: Performed By: #### L IPA, CMP, CRP, NAT #### [facility] [address] [place] [address] Dr. Keturah Fisher RBC 4.84 106/ul Normal 4.20-5.40 [facility] Comment on above: Performed By: #### L IPA, CMP, CRP, NAT #### [facility] [address] [address] [address] Keturah Fisher WBC 14.5 103/ul Critically high 4.0-11.0 [facility] Comment on above: Performed By: #### L IPA, CMP, CRP, NAT #### [facility] [id number] Keturah Fisher CT ABD/PELVIS WO CONon [...] small bowel obstruction. Electronically authenticated by: AGUSTIN CAMPEBLL Date: 2022-03-19 19:10 Normal [facility] LIPASEon 03-19-2022 Lipase [Catalytic activity/Vol] 1573.0 U/L Critically high 73.0-393.0 [facility] Comment on above: Performed By: #### L IPA, CMP, CRP, NAT #### [facility] [address] [place] [address] Dr. Keturah Fisher PROF 14(COMP METB)on 023 Albumin [Mass/Vol] 4.3 g/dL Normal 3.4-5.0 [facility] Comment on above: Performed By: #### L IPA, CMP, CRP, NAT #### [facility] [address] [place] [address] Dr. Keturah Fisher Albumin/Globulin [Mass ratio] 1.1 {ratio} Normal [facility] Comment on above: Performed By: #### L IPA, CMP, CRP, NAT #### [facility] [address] [place] [address] Dr. Keturah Fisher ALP [Catalytic activity/Vol] 222 U/L Critically high 46-116 [facility] Comment on above: Performed By: #### L IPA, CMP, CRP, NAT #### [facility] [address] [address] [address] Keturah Fisher ALT [Catalytic activity/Vol] 18 U/L Normal 14-59 [facility] Comment on above: Performed By: #### L IPA, CMP, CRP, NAT #### [facility] [address] [place] [address] Dr. Keturah Fisher Anion gap [Moles/Vol] 10.7 mmol/L Normal [facility] Comment on above: Performed By: #### L IPA, CMP, CRP, NAT #### [facility] [address] [address] [address] Keturah Fisher AST [Catalytic activity/Vol] 19 U/L Normal 15-37 [facility] Comment on above: Performed By: #### L IPA, CMP, CRP, NAT #### [facility] [address] [address] [address] Keturah Fisher Bilirubin [Mass/Vol] 0.2 mg/dL Normal 0.2-1.0 [facility] Comment on above: Performed By: #### L IPA, CMP, CRP, NAT #### [facility] [address] [place] [address] Dr. Keturah Fisher Calcium [Mass/Vol] 10.2 mg/dL Critically high 8.5-10.1 [facility] Comment on above: Performed By: #### L IPA, CMP, CRP, NAT #### [facility] [address] [place] [address] Dr. Keturah Fisher Chloride [Moles/Vol] 101 mmol/L Normal 98-107 [facility] Comment on above: Performed By: #### L IPA, CMP, CRP, NAT #### [facility] [address] [address] [address] Keturah Fisher CO2 [Moles/Vol] 29.1 mmol/L Normal 21.0-32.0 [facility] Comment on above: Performed By: #### L IPA, CMP, CRP, NAT #### [facility] [address] [place] [address] Dr. Keturah Fisher Creatinine [Mass/Vol] 0.73 mg/dL Normal 0.55-1.02 [facility] Comment on above: Performed By: #### L IPA, CMP, CRP, NAT #### [facility] [address] [place] [address] Dr. Keturah Fisher EGFR-AF DUTCH >60 Normal >=60 [facility] Comment on above: Performed By: #### L IPA, CMP, CRP, NAT #### [facility] [address] [place] [address] Dr. Keturah Fisher EGFR-NON AF DUTCH >60 Normal >=60 [facility] Comment on above: Performed By: #### L IPA, CMP, CRP, NAT #### [facility] [address] [place] [address] Dr. Keturah Fisher Globulin (S) [Mass/Vol] 4.0 g/dL Normal [facility] Comment on above: Performed By: #### L IPA, CMP, CRP, NAT #### [facility] [address] [place] [address] Dr. Keturah Fisher Glucose [Mass/Vol] 92 mg/dL Normal 74-106 [facility] Comment on above: Performed By: #### L IPA, CMP, CRP, NAT #### [facility] [address] [place] [address] Dr. Keturah Fisher Potassium [Moles/Vol] 3.8 mmol/L Normal 3.5-5.1 [facility] Comment on above: Performed By: #### L IPA, CMP, CRP, NAT #### [facility] [address] [place] [address] Dr. Keturah Fisher Protein [Mass/Vol] 8.3 g/dL Critically high 6.4-8.2 [facility] Comment on above: Performed By: #### L IPA, CMP, CRP, NAT #### [facility] [address] [place] [address] Dr. Keturah Fisher Sodium [Moles/Vol] 137 mmol/L Normal 136-145 [facility] Comment on above: Performed By: #### L IPA, CMP, CRP, NAT #### [facility] [address] [place] [address] Dr. Keturah Fisher Urea nitrogen [Mass/Vol] 10.0 mg/dL Normal 7.0-18.0 [facility] Comment on above: Performed By: #### L IPA, CMP, CRP, NAT #### [facility] [address] [place] [address] Dr. Keturah Fisher Urea nitrogen/Creatinine [Mass ratio] 13.7 mg/mg Normal [facility] Comment on above: Performed By: #### L IPA, CMP, CRP, NAT #### [facility] [address] [address] [address] Keturah Fisher PROTIMEon 03-19-2022 INR Coag (PPP) [Relative time] {INR} Normal [facility] Comment on above: Performed By: #### P TT, PT ####[facility] [address] [address]DrGopal Fisher INR GUIDELINES SEE BELOW Normal [facility] Comment on above: Result Comment: KARLY RED INR: 2.0 - 3.0 CONDITIONS NOT LISTED BELOW 2.5 - 3.5 FOR PROSTHETIC HEART VALVE REPLACEMENT 2.5 - 3.5 RECURRENT THROMBOSIS Performed By: #### P TT, PT ####[facility] [address] [address]DrGopal Fisher PT Coag (PPP) [Time] 9.4 s Normal 9.0-11.6 [facility] Comment on above: Performed By: #### P TT, PT ####[facility] [address] [address]DrGopal Fisher PTTon 03-19-2022 aPTT Coag (Bld) [Time] 26.1 s Normal 22.3-36.2 [facility] Comment on above: Performed By: #### P TT, PT ####[facility] [address] [address]Dr. Keturah Fisher TROPONIN, HIGH SENSITIVITYon 03-19-2022 HSTROP 4.0 pg/mL Normal 4.0-51.3 [facility] Comment on above: Result Comment: CUT- OFF POINTS HAVE BEEN ESTABLISHED BASED ON THE FOURTH UNIVERSAL DEFINITIONS OF MYOCARDIAL INFARCTION. THE UPPER REFERENCE LIMIT (URL) OF TROPONIN, DEFINED THE 99TH PERCENTILE OF cTnI DISTRIBUTION IN A REFERENCE POPULATION, HAS BEEN CONFIRMED THE DECISION THRESHOLD FOR OR DIAGNOSIS. Performed By: #### L IPA, CMP, CRP, NAT #### [facility] [address] [address] [address] 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 Mental Status [...] si (more content not included)... LAB, [facility] Radiology Study observation (narrative) [facility] BONE DENSITY AXIAL (HIP, PEL VIS, SPINE)on [...] interpreted this study is a Certified Clinical Design Engineer Products by the International Society of Clinical Densitometry Maulik Reed M.D., CCD. OLOGY EXAM: BONE DENSITY A XIAL (HIP, PELVIS, SPINE) 01/27/2022 15:34 PM TECHNIQUE: DXA scanning using a [employer] Advance bone densitometer at the [facility] was performed on 01/27/2022 15:34 [...] 15:34 PM TECHNIQUE: DXA scanning using a [employer] Advance bone densitometer at the [facility] was performed on 01/27/2022 15:34 [...] interpreted this study is a Certified Clinical Design Engineer Products by the International Society of Clinical Densitometry Maulik Reed M.D., CCD. [facility] Radiology Study observation (narrative) [facility] BONE DENSITY AXIAL (HIP, PEL VIS, SPINE)Ordered By: Maulik Reed on 01-27-2022 [facility] Work Phone: CBC AUTO DIFFon 01-15-2022 BASO # 0.1 103/ul Normal 0.0-0.1 [facility] Comment on above: Performed By: #### C BC ####[facility] [address] [place], [place] [address]BuGopal Rebollar Fisher Basophils/100 WBC (Bld) 0.9 % Normal 0.2-2.0 [facility] Comment on above: Performed By: #### C BC ####[facility] [address] [address]Dr. Keturah Fisher EO # 0.2 103/ul Normal 0.0-0.7 [facility] Comment on above: Performed By: #### C BC ####[facility] [address] [place], [place] [address]Dr. Keturah Fisher Eosinophils/100 WBC (Bld) 2.8 % Normal 0.9-7.0 [facility] Comment on above: Performed By: #### C BC ####[facility] [address] [place], [place] [address]Dr. Keturah Fisher Erythrocyte distribution width (RBC) [Ratio] 12.9 % Normal 11.0-15.0 [facility] Comment on above: Performed By: #### C BC ####[facility] [address] [place], [place] [address]Dr. Keturah Fisher Hematocrit (Bld) [Volume fraction] 41.7 % Normal 36.0-48.0 [facility] Comment on above: Performed By: #### C BC ####[facility] [address] [place], [place] [address]Dr. Keturah Fihser Hemoglobin (Bld) [Mass/Vol] 14.0 g/dL Normal 12.0-16.0 [facility] Comment on above: Performed By: #### C BC ####[facility] [address] [place], [place] [address]Dr. Keturah Fisher IG # 0.01 10e3/ul Normal 0.00-0.03 [facility] Comment on above: Performed By: #### C BC ####[facility] [address] [place], [place] [address]Dr. Keturah Fisher IG % 0.1 % Normal 0.0-0.5 [facility] Comment on above: Performed By: #### C BC ####[facility] [address] [place], [place] [address]Dr. Keturah Fisher LYMPH # 2.4 103/ul Normal 1.2-3.8 [facility] Comment on above: Performed By: #### C BC ####[facility] [address] [id number]. Keturah Phillip Lymphocytes/100 WBC (Bld) 32.0 % Normal 20.5-60.0 [facility] Comment on above: Performed By: #### C BC ####[facility] [address] [id number]. Keturah Fisher MANUAL DIFF REQ NO Normal [facility] Comment on above: Performed By: #### C BC ####[facility] [address] [id number]. Elisaeli Fisher MCH (RBC) [Entitic mass] 32.6 pg Normal 26.7-34.0 [facility] Comment on above: Performed By: #### C BC ####[facility] [address] [place], [place] [address]Dr. Keturah Fisher MCHC (RBC) [Mass/Vol] 33.6 g/dL Normal 29.9-35.2 [facility] Comment on above: Performed By: #### C BC ####[facility] [address] [place], [place] [address]Dr. Elisaeli Fisher MCV (RBC) [Entitic vol] 97.0 fL Normal 81.0-99.0 [facility] Comment on above: Performed By: #### C BC ####[facility] [address] [place], [place] [address]Dr. Keturah Fisher MONO # 0.7 103/ul Normal 0.3-0.8 [facility] Comment on above: Performed By: #### C BC ####[facility] [address] [place], [place] [id number]. Keturah Fisher Monocytes/100 WBC (Bld) 9.5 % Normal 1.7-12.0 [facility] Comment on above: Performed By: #### C BC ####[facility] [address] [place], [place] [address]Dr. Keturah Fisher NEUT # 4.1 103/ul Normal 1.4-6.5 [facility] Comment on above: Performed By: #### C BC ####[facility] [address] [address]Dr. Keturah Fisher Neutrophils/100 WBC (Bld) 54.7 % Normal 43.0-75.0 [facility] Comment on above: Performed By: #### C BC ####[facility] [address] [address]Dr. Keturah Fisher Platelet mean volume (Bld) [Entitic vol] 9.6 fL Normal 9.5-13.5 [facility] Comment on above: Performed By: #### C BC ####[facility] [address] [address]Dr. Keturah Fisher PLT 235 103/ul Normal 150-450 [facility] Comment on above: Performed By: #### C BC ####[facility] [address] [address]Dr. Keturah Fisher RBC 4.30 106/ul Normal 4.20-5.40 [facility] Comment on above: Performed By: #### C BC ####[facility] [address] [place] [address]Dr. Keturah Fisher WBC 7.6 103/ul Normal 4.0-11.0 [facility] Comment on above: Performed By: #### C BC ####[facility] [id number] [place] [address]Dr. Keturah Fisher ER URINE PROFILEon 2 Bilirubin Ql (U) Negative Normal NEGATIVE [facility] Comment on above: Performed By: #### L IPA, CMP, CRP, NAT #### [facility] [address] [place] [address] Dr. Keturah Fisher Clarity (U) CLEAR Normal CLEAR [facility] Comment on above: Performed By: #### L IPA, CMP, CRP, NAT #### [facility] [address] [place] [address] Dr. Keturah Fisher Color (U) YELLOW Normal YELLOW [facility] Comment on above: Performed By: #### L IPA, CMP, CRP, NAT #### [facility] [address] [place] [address] [address] Keturah BAH A micrscopic examina tion will be performed if indicated. Normal [facility] Comment on above: Performed By: #### L IPA, CMP, CRP, NAT #### [facility] [address] [place] [address] [address] Keturah Fisher Glucose Ql (U) Negative Normal NEGATIVE The [facility] Comment on above: Performed By: #### L IPA, CMP, CRP, NAT #### [facility] [address] [address] [address] Keturah Fisher Hemoglobin Ql (U) Negative Normal NEGATIVE [facility] Comment on above: Performed By: #### L IPA, CMP, CRP, NAT #### [facility] [address] [place] [address] Dr. Keturah Fisher Ketones Ql (U) Negative Normal NEGATIVE The [facility] Comment on above: Performed By: #### L IPA, CMP, CRP, NAT #### [facility] [address] [place] [address] Dr. Keturah Fisher LEUKOCYTES Negative Normal NEGATIVE [facility] Comment on above: Performed By: #### L IPA, CMP, CRP, NAT #### [facility] [address] [place] [address] Dr. Keturah Fisher Nitrite Ql (U) Negative Normal NEGATIVE The [facility] Comment on above: Performed By: #### L IPA, CMP, CRP, NAT #### [facility] [address] [place] [address] Dr. Keturah Fisher pH (U) 5.5 [pH] Normal 5-9 [facility] Comment on above: Performed By: #### L IPA, CMP, CRP, NAT #### [facility] [address] [place] [address] Dr. Keturah Fisher SPEC GRAVITY >=1.030 Abnormal 1.005-<=1. 025 [facility] Comment on above: Performed By: #### L IPA, CMP, CRP, NAT #### [facility] [address] [place] [address] Dr. Keturah Fisher UA PROTEIN Negative Normal NEGATIVE/ TRACE [facility] Comment on above: Performed By: #### L IPA, CMP, CRP, NAT #### [facility] [address] [place] [address] Dr. Keturah Fisher UR MICRO IND NOT INDICATED Normal [facility] Comment on above: Performed By: #### L IPA, CMP, CRP, NAT #### [facility] [address] [place] [address] Dr. Keturah Fisher Urobilinogen Qn (U) 0.2 {Marizol'U}/dL Normal 0.2 - 1. 0 [facility] Comment on above: Performed By: #### L IPA, CMP, CRP, NAT #### [facility] [address] [place] [address] Dr. Keturah Fisher LIPASEon 01-15-2022 Lipase [Catalytic activity/Vol] 572.0 U/L Critically high 73.0-393.0 [facility] Comment on above: Performed By: #### C BC #### [facility] [address] [place] [address] Dr. Keturah Fisher URon 01-15-2022 , QUAL Negative Normal NEGATIVE [facility] Comment on above: Performed By: #### L IPA, CMP, CRP, NAT #### [facility] [address] [place] [address] Dr. Keturah Fisher PROF 14(COMP METB)on 022 Albumin [Mass/Vol] 3.8 g/dL Normal 3.4-5.0 [facility] Comment on above: Performed By: #### C BC #### [facility] [address] [place] [address] Dr. Keturah Fisher Albumin/Globulin [Mass ratio] 1.1 {ratio} Normal [facility] Comment on above: Performed By: #### C BC #### [facility] [address] [place] [address] Dr. Keturah Fisher ALP [Catalytic activity/Vol] 151 U/L Critically high 46-116 [facility] Comment on above: Performed By: #### C BC #### [facility] [address] [address] [address] Keturah Fisher ALT [Catalytic activity/Vol] 14 U/L Normal 14-59 [facility] Comment on above: Performed By: #### C BC #### [facility] [address] [place] [address] Dr. Keturah Fisher Anion gap [Moles/Vol] 5.5 mmol/L Normal [facility] Comment on above: Performed By: #### C BC #### [facility] [address] [address] [address] Keturah Fisher AST [Catalytic activity/Vol] 16 U/L Normal 15-37 [facility] Comment on above: Performed By: #### C BC #### [facility] [address] [place] [address] Dr. Keturah Fisher Bilirubin [Mass/Vol] 0.1 mg/dL Critically low 0.2-1.0 [facility] Comment on above: Performed By: #### C BC #### [facility] [address] [place] [address] Dr. Keturah Fisher Calcium [Mass/Vol] 9.5 mg/dL Normal 8.5-10.1 [facility] Comment on above: Performed By: #### C BC #### [facility] [address] [place] [address] Dr. Keturah Fisher Chloride [Moles/Vol] 105 mmol/L Normal 98-107 [facility] Comment on above: Performed By: #### C BC #### [facility] [address] [place] [address] Dr. Keturah Fisher CO2 [Moles/Vol] 30.0 mmol/L Normal 21.0-32.0 [facility] Comment on above: Performed By: #### C BC #### [facility] [address] [place] [address] Dr. Keturah Fisher Creatinine [Mass/Vol] 0.90 mg/dL Normal 0.55-1.02 [facility] Comment on above: Performed By: #### C BC #### [facility] [address] [place] [address] Dr. Keturah Fisher EGFR-AF DUTCH >60 Normal >=60 [facility] Comment on above: Performed By: #### C BC #### [facility] [address] [address] [address] Keturah Fisher EGFR-NON AF DUTCH >60 Normal >=60 [facility] Comment on above: Performed By: #### C BC #### [facility] [address] [place] [address] [address] Keturah Fisher Globulin (S) [Mass/Vol] 3.4 g/dL Normal [facility] Comment on above: Performed By: #### C BC #### [facility] [address] [address] [address] Keturah Fisher Glucose [Mass/Vol] 82 mg/dL Normal 74-106 [facility] Comment on above: Performed By: #### C BC #### [facility] [address] [address] [address] Keturah Fisher Potassium [Moles/Vol] 3.5 mmol/L Normal 3.5-5.1 [facility] Comment on above: Performed By: #### C BC #### [facility] [address] [address] [address] Keturah Fisher Protein [Mass/Vol] 7.2 g/dL Normal 6.4-8.2 [facility] Comment on above: Performed By: #### C BC #### [facility] [address] [address] [address] Keturah Fisher Sodium [Moles/Vol] 137 mmol/L Normal 136-145 [facility] Comment on above: Performed By: #### C BC #### [facility] [address] [address] [address] Keturah Fisher Urea nitrogen [Mass/Vol] 12.0 mg/dL Normal 7.0-18.0 [facility] Comment on above: Performed By: #### C BC #### [facility] [address] [address] [address] Keturah Fisher Urea nitrogen/Creatinine [Mass ratio] 13.3 mg/mg Normal [facility] Comment on above: Performed By: #### C BC #### [facility] [address] [place] [address] Dr. Keturah Fisher AMYLASEon 12-13-2021 Amylase [Catalytic activity/Vol] 268 U/L Critically high 25-115 [facility] Comment on above: Performed By: #### L IPA, CMP, CRP, NAT #### [facility] [address] [place] [address] Dr. Keturah Fisher CBC AUTO DIFFon 12-13-2021 BASO # 0.1 103/ul Normal 0.0-0.1 [facility] Comment on above: Performed By: #### L IPA, CMP, CRP, NAT #### [facility] [address] [place] [address] Dr. Keturah Fisher Basophils/100 WBC (Bld) 0.6 % Normal 0.2-2.0 [facility] Comment on above: Performed By: #### L IPA, CMP, CRP, NAT #### [facility] [address] [place] [address] Dr. Keturah Fisher EO # 0.1 103/ul Normal 0.0-0.7 [facility] Comment on above: Performed By: #### L IPA, CMP, CRP, NAT #### [facility] [address] [place] [address] Dr. Keturah Fisher Eosinophils/100 WBC (Bld) 1.2 % Normal 0.9-7.0 [facility] Comment on above: Performed By: #### L IPA, CMP, CRP, NAT #### [facility] [address] [place] [address] Dr. Keturah Fisher Erythrocyte distribution width (RBC) [Ratio] 13.2 % Normal 11.0-15.0 [facility] Comment on above: Performed By: #### L IPA, CMP, CRP, NAT #### [facility] [address] [place] [address] Dr. Keturah Fisher Hematocrit (Bld) [Volume fraction] 44.7 % Normal 36.0-48.0 [facility] Comment on above: Performed By: #### L IPA, CMP, CRP, NAT #### [facility] [address] [place] [address] Dr. Keturah Fisher Hemoglobin (Bld) [Mass/Vol] 14.7 g/dL Normal 12.0-16.0 [facility] Comment on above: Performed By: #### L IPA, CMP, CRP, NAT #### [facility] [address] [place] [address] Dr. Keturah Fisher IG # 0.03 10e3/ul Normal 0.00-0.03 [facility] Comment on above: Performed By: #### L IPA, CMP, CRP, NAT #### [facility] [address] [place] [address] Dr. Keturah Fisher IG % 0.3 % Normal 0.0-0.5 [facility] Comment on above: Performed By: #### L IPA, CMP, CRP, NAT #### [facility] [address] [place] [address] Dr. Keturah Fisher LYMPH # 3.6 103/ul Normal 1.2-3.8 [facility] Comment on above: Performed By: #### L IPA, CMP, CRP, NAT #### [facility] [address] [place] [address] Dr. Keturah Fisher Lymphocytes/100 WBC (Bld) 32.7 % Normal 20.5-60.0 [facility] Comment on above: Performed By: #### L IPA, CMP, CRP, NAT #### [facility] [address] [place] [address] Dr. Keturah Fisher MANUAL DIFF REQ NO Normal [facility] Comment on above: Performed By: #### L IPA, CMP, CRP, NAT #### [facility] [address] [place] [address] Dr. Keturah Fisher MCH (RBC) [Entitic mass] 32.2 pg Normal 26.7-34.0 [facility] Comment on above: Performed By: #### L IPA, CMP, CRP, NAT #### [facility] [address] [place] [address] Dr. Keturah Fisher MCHC (RBC) [Mass/Vol] 32.9 g/dL Normal 29.9-35.2 [facility] Comment on above: Performed By: #### L IPA, CMP, CRP, NAT #### [facility] [address] [place] [address] Dr. Keturah Fisher MCV (RBC) [Entitic vol] 98.0 fL Normal 81.0-99.0 [facility] Comment on above: Performed By: #### L IPA, CMP, CRP, NAT #### [facility] [address] [place] [address] Dr. Keturah Fisher MONO # 1.1 103/ul Critically high 0.3-0.[address] [facility] Comment on above: Performed By: #### L IPA, CMP, CRP, NAT #### [facility] [address] [place] [address] Dr. Keturah Fisher Monocytes/100 WBC (Bld) 9.7 % Normal 1.7-12.0 [facility] Comment on above: Performed By: #### L IPA, CMP, CRP, NAT #### [facility] [address] [place] [address] Dr. Keturah Fisher NEUT # 6.1 103/ul Normal 1.4-6.5 [facility] Comment on above: Performed By: #### L IPA, CMP, CRP, NAT #### [facility] [address] [place] [address] Dr. Keturah Fisher Neutrophils/100 WBC (Bld) 55.5 % Normal 43.0-75.0 [facility] Comment on above: Performed By: #### L IPA, CMP, CRP, NAT #### [facility] [address] [place] [address] Dr. Keturah Fisher Platelet mean volume (Bld) [Entitic vol] 9.7 fL Normal 9.5-13.5 [facility] Comment on above: Performed By: #### L IPA, CMP, CRP, NAT #### [facility] [address] [place] [address] Dr. Keturah Fisher PLT 274 103/ul Normal 150-450 [facility] Comment on above: Performed By: #### L IPA, CMP, CRP, NAT #### [facility] [address] [place], [place] [address] Dr. Keturah Fisher RBC 4.56 106/ul Normal 4.20-5.40 [facility] Comment on above: Performed By: #### L IPA, CMP, CRP, NAT #### [facility] [address] [place], [place] [address] Dr. Keturah Fisher WBC 10.9 103/ul Normal 4.0-11.0 [facility] Comment on above: Performed By: #### L IPA, CMP, CRP, NAT #### [facility] [address] [place] [address] [address] Keturah Fisher CRPon 12-13-2021 CRP [Mass/Vol] mg/L Normal <=1.[address] [facility] Comment on above: Performed By: #### L IPA, CMP, CRP, NAT #### [facility] [address] [place] [address] ABD/PELV W CONon [...] by: AGUSTIN HIGHTOWER Date: 2021-12-13 20:50 Normal [facility] LIPASEon 12-13-2021 Lipase [Catalytic activity/Vol] 1496.0 U/L Critically high 73.0-393.0 [facility] Comment on above: Performed By: #### L IPA, CMP, CRP, NAT #### [facility] [address] [place] [address] Dr. Keturah Fisher PROF 14(COMP METB)on 022 Albumin [Mass/Vol] 4.0 g/dL Normal 3.4-5.0 [facility] Comment on above: Performed By: #### L IPA, CMP, CRP, NAT #### [facility] [address] [place] [address] Dr. Keturah Fisher Albumin/Globulin [Mass ratio] 1.0 {ratio} Normal [facility] Comment on above: Performed By: #### L IPA, CMP, CRP, NAT #### [facility] [address] [place] [address] Dr. Keturah Fisher ALP [Catalytic activity/Vol] 166 U/L Critically high 46-116 [facility] Comment on above: Performed By: #### L IPA, CMP, CRP, NAT #### [facility] [address] [place] [address] Dr. Keturah Fisher ALT [Catalytic activity/Vol] 19 U/L Normal 14-59 [facility] Comment on above: Performed By: #### L IPA, CMP, CRP, NAT #### [facility] [address] [place] [address] Dr. Keturah Fisher Anion gap [Moles/Vol] 9.5 mmol/L Normal [facility] Comment on above: Performed By: #### L IPA, CMP, CRP, NAT #### [facility] [address] [address] [address] Keturah Fisher AST [Catalytic activity/Vol] 16 U/L Normal 15-37 [facility] Comment on above: Performed By: #### L IPA, CMP, CRP, NAT #### [facility] [address] [address] [address] Keturah Fisher Bilirubin [Mass/Vol] 0.1 mg/dL Critically low 0.2-1.0 [facility] Comment on above: Performed By: #### L IPA, CMP, CRP, NAT #### [facility] [address] [address] [address] Keturah Fisher Calcium [Mass/Vol] 9.6 mg/dL Normal 8.5-10.1 [facility] Comment on above: Performed By: #### L IPA, CMP, CRP, NAT #### [facility] [address] [address] [address] Keturah Fisher Chloride [Moles/Vol] 104 mmol/L Normal 98-107 [facility] Comment on above: Performed By: #### L IPA, CMP, CRP, NAT #### [facility] [address] [address] [address] Keturah Fisher CO2 [Moles/Vol] 29.7 mmol/L Normal 21.0-32.0 [facility] Comment on above: Performed By: #### L IPA, CMP, CRP, NAT #### [facility] [address] [address] [address] Keturah Fisher Creatinine [Mass/Vol] 0.85 mg/dL Normal 0.55-1.02 [facility] Comment on above: Performed By: #### L IPA, CMP, CRP, NAT #### [facility] [address] [address] [address] Keturah Fisher EGFR-AF DUTCH >60 Normal >=60 [facility] Comment on above: Performed By: #### L IPA, CMP, CRP, NAT #### [facility] [address] [address] [address] Keturah Fisher EGFR-NON AF DUTCH >60 Normal >=60 [facility] Comment on above: Performed By: #### L IPA, CMP, CRP, NAT #### [facility] [address] [address] [address] Keturah Fisher Globulin (S) [Mass/Vol] 3.9 g/dL Normal [facility] Comment on above: Performed By: #### L IPA, CMP, CRP, NAT #### [facility] [address] [address] [address] Keturah Fisher Glucose [Mass/Vol] 70 mg/dL Critically low 74-106 [facility] Comment on above: Performed By: #### L IPA, CMP, CRP, NTA #### [facility] [address] [place] [address] Dr. Keturah Fisher Potassium [Moles/Vol] 3.2 mmol/L Critically low 3.5-5.1 [facility] Comment on above: Performed By: #### L IPA, CMP, CRP, NAT #### [facility] [address] [place] [address] Dr. Keturah Fisher Protein [Mass/Vol] 7.9 g/dL Normal 6.4-8.2 [facility] Comment on above: Performed By: #### L IPA, CMP, CRP, NAT #### [facility] [address] [address] [address] Keturah Fisher Sodium [Moles/Vol] 140 mmol/L Normal 136-145 [facility] Comment on above: Performed By: #### L IPA, CMP, CRP, NAT #### [facility] [address] [place] [address] Dr. Keturah Fisher Urea nitrogen [Mass/Vol] 8.0 mg/dL Normal 7.0-18.0 [facility] Comment on above: Performed By: #### L IPA, CMP, CRP, NAT #### [facility] [address] [place] [address] Dr. Keturah Fisher Urea nitrogen/Creatinine [Mass ratio] 9.4 mg/mg Normal [facility] Comment on above: Performed By: #### L IPA, CMP, CRP, NAT #### [facility] [address] [place] [address] Dr. Keturah Fisher AMYLASEon 12-05-2021 Amylase [Catalytic activity/Vol] 223 U/L Critically high 25-115 [facility] Comment on above: Performed By: #### L IPA, CMP, CRP, NAT #### [facility] [address] [place] [address] Dr. Keturah Fisher CBC AUTO DIFFon 12-05-2021 BASO # 0.1 103/ul Normal 0.0-0.1 [facility] Comment on above: Performed By: #### C BC #### [facility] [address] [place] [address] Dr. Keturah Fisher Basophils/100 WBC (Bld) 0.7 % Normal 0.2-2.0 [facility] Comment on above: Performed By: #### C BC #### [facility] [address] [place] [address] Dr. Keturah Fisher EO # 0.2 103/ul Normal 0.0-0.7 [facility] Comment on above: Performed By: #### C BC #### [facility] [address] [place] [address] Dr. Keturah Fisher Eosinophils/100 WBC (Bld) 1.7 % Normal 0.9-7.0 [facility] Comment on above: Performed By: #### C BC #### [facility] [address] [place] [address] Dr. Keturah Fisher Erythrocyte distribution width (RBC) [Ratio] 13.0 % Normal 11.0-15.0 [facility] Comment on above: Performed By: #### C BC #### [facility] [address] [place] [address] Dr. Keturah Fisher Hematocrit (Bld) [Volume fraction] 44.9 % Normal 36.0-48.0 [facility] Comment on above: Performed By: #### C BC #### [facility] [address] [place] [address] Dr. Keturah Fisher Hemoglobin (Bld) [Mass/Vol] 15.1 g/dL Normal 12.0-16.0 [facility] Comment on above: Performed By: #### C BC #### [facility] [address] [place] [address] Dr. Keturah Fisher IG # 0.02 10e3/ul Normal 0.00-0.03 [facility] Comment on above: Performed By: #### C BC #### [facility] [address] [place] [address] Dr. Keturah Fisher IG % 0.2 % Normal 0.0-0.5 [facility] Comment on above: Performed By: #### C BC #### [facility] [address] [place] [address] Dr. Keturah Fisher LYMPH # 2.8 103/ul Normal 1.2-3.8 [facility] Comment on above: Performed By: #### C BC #### [facility] [address] [place] [address] Dr. Keturah Fisher Lymphocytes/100 WBC (Bld) 29.8 % Normal 20.5-60.0 [facility] Comment on above: Performed By: #### C BC #### [facility] [address] [place] [address] Dr. Keturah Fisher MANUAL DIFF REQ NO Normal [facility] Comment on above: Performed By: #### C BC #### [facility] [address] [place] [address] Dr. Keturah Fisher MCH (RBC) [Entitic mass] 32.4 pg Normal 26.7-34.0 [facility] Comment on above: Performed By: #### C BC #### [facility] [address] [place] [address] Dr. Keturah Fisher MCHC (RBC) [Mass/Vol] 33.6 g/dL Normal 29.9-35.2 [facility] Comment on above: Performed By: #### C BC #### [facility] [address] [place] [address] Dr. Keturah Fisher MCV (RBC) [Entitic vol] 96.4 fL Normal 81.0-99.0 [facility] Comment on above: Performed By: #### C BC #### [facility] [address] [place] [address] Dr. Keturah Fisher MONO # 0.6 103/ul Normal 0.3-0.8 [facility] Comment on above: Performed By: #### C BC #### [facility] [address] [place] [address] Dr. Keturah Fisher Monocytes/100 WBC (Bld) 6.3 % Normal 1.7-12.0 [facility] Comment on above: Performed By: #### C BC #### [facility] [facility] [address] [place] [address] Dr. Keturah Fisher NEUT # 5.7 103/ul Normal 1.4-6.5 [facility] Comment on above: Performed By: #### C BC #### [facility] [address] [place] [address] Dr. Keturah Fisher Neutrophils/100 WBC (Bld) 61.3 % Normal 43.0-75.0 [facility] Comment on above: Performed By: #### C BC #### [facility] [address] [place] [address] Dr. Keturah Fisher Platelet mean volume (Bld) [Entitic vol] 10.7 fL Normal 9.5-13.5 [facility] Comment on above: Performed By: #### C BC #### [facility] [address] [place] [address] Dr. Keturah Fisher PLT 217 103/ul Normal 150-450 [facility] Comment on above: Performed By: #### C BC #### [facility] [address] [place] [address] Dr. Keturah Fisher RBC 4.66 106/ul Normal 4.20-5.40 [facility] Comment on above: Performed By: #### C BC #### [facility] [address] [place] [address] Dr. Keturah Fisher WBC 9.2 103/ul Normal 4.0-11.0 [facility] Comment on above: Performed By: #### C BC #### [facility] [address] [place] [address] Dr. Keturah Fisher LIPASEon 12-05-2021 Lipase [Catalytic activity/Vol] 725.0 U/L Critically high 73.0-393.0 [facility] Comment on above: Performed By: #### L IPA, CMP, CRP, NAT #### [facility] [address] [address] [address] Keturah Fisher PROF 14(COMP METB)on 022 Albumin [Mass/Vol] 4.2 g/dL Normal 3.4-5.0 [facility] Comment on above: Performed By: #### L IPA, CMP, CRP, NAT #### [facility] [address] [place] [address] Dr. Keturah Fisher Albumin/Globulin [Mass ratio] 1.2 {ratio} Normal [facility] Comment on above: Performed By: #### L IPA, CMP, CRP, NAT #### [facility] [address] [place] [address] Dr. Keturah Fisher ALP [Catalytic activity/Vol] 158 U/L Critically high 46-116 [facility] Comment on above: Performed By: #### L IPA, CMP, CRP, NAT #### [facility] [address] [place] [address] Dr. Keturah Fisher ALT [Catalytic activity/Vol] 20 U/L Normal 14-59 [facility] Comment on above: Performed By: #### L IPA, CMP, CRP, NAT #### [facility] [address] [place] [address] Dr. Keturah Fisher Anion gap [Moles/Vol] 14.0 mmol/L Normal [facility] Comment on above: Performed By: #### L IPA, CMP, CRP, NAT #### [facility] [address] [place] [address] Dr. Keturah Fisher AST [Catalytic activity/Vol] 27 U/L Normal 15-37 [facility] Comment on above: Performed By: #### L IPA, CMP, CRP, NAT #### [facility] [address] [address] [address] Keturah Fisher Bilirubin [Mass/Vol] 0.3 mg/dL Normal 0.2-1.0 [facility] Comment on above: Performed By: #### L IPA, CMP, CRP, NAT #### [facility] [address] [place] [address] Dr. Keturah Fisher Calcium [Mass/Vol] 10.1 mg/dL Normal 8.5-10.1 [facility] Comment on above: Performed By: #### L IPA, CMP, CRP, NAT #### [facility] [address] [place] [address] Dr. Keturah Fisher Chloride [Moles/Vol] 105 mmol/L Normal 98-107 [facility] Comment on above: Performed By: #### L IPA, CMP, CRP, NAT #### [facility] [address] [place] [address] Dr. Keturah Fisher CO2 [Moles/Vol] 24.9 mmol/L Normal 21.0-32.0 [facility] Comment on above: Performed By: #### L IPA, CMP, CRP, NAT #### [facility] [address] [place] [address] Dr. Keturah Fisher Creatinine [Mass/Vol] 0.77 mg/dL Normal 0.55-1.02 [facility] Comment on above: Performed By: #### L IPA, CMP, CRP, NAT #### [facility] [address] [place] [address] Dr. Keturah Fisher EGFR-AF DUTCH >60 Normal >=60 [facility] Comment on above: Performed By: #### L IPA, CMP, CRP, NAT #### [facility] [address] [place] [address] Dr. Keturah Fisher EGFR-NON AF DUTCH >60 Normal >=60 [facility] Comment on above: Performed By: #### L IPA, CMP, CRP, NAT #### [facility] [address] [place] [address] Dr. Keturah Fisher Globulin (S) [Mass/Vol] 3.5 g/dL Normal [facility] Comment on above: Performed By: #### L IPA, CMP, CRP, NAT #### [facility] [address] [address] [address] Keturah Fisher Glucose [Mass/Vol] 91 mg/dL Normal 74-106 [facility] Comment on above: Performed By: #### L IPA, CMP, CRP, NAT #### [facility] [address] [address] [address] Keturah Fisher Potassium [Moles/Vol] 3.9 mmol/L Normal 3.5-5.1 [facility] Comment on above: Performed By: #### L IPA, CMP, CRP, NAT #### [facility] [address] [place] [address] Dr. Keturah Fisher Protein [Mass/Vol] 7.7 g/dL Normal 6.4-8.2 [facility] Comment on above: Performed By: #### L IPA, CMP, CRP, NAT #### [facility] [address] [address] [address] Keturah Fisher Sodium [Moles/Vol] 140 mmol/L Normal 136-145 [facility] Comment on above: Performed By: #### L IPA, CMP, CRP, NAT #### [facility] [address] [place] [address] Dr. Keturah Fisher Urea nitrogen [Mass/Vol] 8.0 mg/dL Normal 7.0-18.0 [facility] Comment on above: Performed By: #### L IPA, CMP, CRP, NAT #### [facility] [address] [place] [address] Dr. Keturah Fisher Urea nitrogen/Creatinine [Mass ratio] 10.4 mg/mg Normal [facility] Comment on above: Performed By: #### L IPA, CMP, CRP, NAT #### [facility] [address] [place] [address] Dr. Keturah Fisher AMYLASEon 10-11-2021 Amylase [Catalytic activity/Vol] 134 U/L Critically high 25-115 [facility] Comment on above: Performed By: #### C BC #### [facility] [address] [place] [address] Dr. Keturah Fisher CBC AUTO DIFFon 10-11-2021 BASO # 0.1 103/ul Normal 0.0-0.1 [facility] Comment on above: Performed By: #### L IPA, CMP, CRP, NAT #### [facility] [address] [place] [address] Dr. Keturah Fisher Basophils/100 WBC (Bld) 1.0 % Normal 0.2-2.0 [facility] Comment on above: Performed By: #### L IPA, CMP, CRP, NAT #### [facility] [address] [place] [address] Dr. Keturah Fisher EO # 0.2 103/ul Normal 0.0-0.7 [facility] Comment on above: Performed By: #### L IPA, CMP, CRP, NAT #### [facility] [address] [place] [address] Dr. Keturah Fisher Eosinophils/100 WBC (Bld) 2.0 % Normal 0.9-7.0 [facility] Comment on above: Performed By: #### L IPA, CMP, CRP, NAT #### [facility] [address] [place] [address] Dr. Keturah Fisher Erythrocyte distribution width (RBC) [Ratio] 13.2 % Normal 11.0-15.0 [facility] Comment on above: Performed By: #### L IPA, CMP, CRP, NAT #### [facility] [address] [place] [address] Dr. Keturah Fisher Hematocrit (Bld) [Volume fraction] 44.7 % Normal 36.0-48.0 [facility] Comment on above: Performed By: #### L IPA, CMP, CRP, NAT #### [facility] [address] [place] [address] Dr. Keturah Fisher Hemoglobin (Bld) [Mass/Vol] 15.0 g/dL Normal 12.0-16.0 [facility] Comment on above: Performed By: #### L IPA, CMP, CRP, NAT #### [facility] [address] [address] [address] Keturah Fisher IG # 0.02 10e3/ul Normal 0.00-0.03 [facility] Comment on above: Performed By: #### L IPA, CMP, CRP, NAT #### [facility] [address] [address] [address] Keturah Fisher IG % 0.2 % Normal 0.0-0.5 [facility] Comment on above: Performed By: #### L IPA, CMP, CRP, NAT #### [facility] [address] [place] [address] Dr. Keturah Fisher LYMPH # 4.1 103/ul Critically high 1.2-3.8 [facility] Comment on above: Performed By: #### L IPA, CMP, CRP, NAT #### [facility] [address] [place] [address] Dr. Keturah Fisher Lymphocytes/100 WBC (Bld) 38.9 % Normal 20.5-60.0 [facility] Comment on above: Performed By: #### L IPA, CMP, CRP, NAT #### [facility] [address] [address] [address] Keturah Fisher MANUAL DIFF REQ NO Normal [facility] Comment on above: Performed By: #### L IPA, CMP, CRP, NAT #### [facility] [address] [address] [address] Keturah Fisher MCH (RBC) [Entitic mass] 32.1 pg Normal 26.7-34.0 [facility] Comment on above: Performed By: #### L IPA, CMP, CRP, NAT #### [facility] [address] [address] [address] Keturah Fisher MCHC (RBC) [Mass/Vol] 33.6 g/dL Normal 29.9-35.2 [facility] Comment on above: Performed By: #### L IPA, CMP, CRP, NAT #### [facility] [address] [address] [address] Keturah Fisher MCV (RBC) [Entitic vol] 95.7 fL Normal 81.0-99.0 [facility] Comment on above: Performed By: #### L IPA, CMP, CRP, NAT #### [facility] [address] [place] [address] Dr. Keturah Fisher MONO # 0.9 103/ul Critically high 0.3-0.[address] [facility] Comment on above: Performed By: #### L IPA, CMP, CRP, NAT #### [facility] [address] [place] [address] Dr. Keturah Fisher Monocytes/100 WBC (Bld) 8.8 % Normal 1.7-12.0 [facility] Comment on above: Performed By: #### L IPA, CMP, CRP, NAT #### [facility] [address] [place] [address] Dr. Keturah Fisher NEUT # 5.2 103/ul Normal 1.4-6.5 [facility] Comment on above: Performed By: #### L IPA, CMP, CRP, NAT #### [facility] [address] [place] [address] Dr. Keturah Fisher Neutrophils/100 WBC (Bld) 49.1 % Normal 43.0-75.0 [facility] Comment on above: Performed By: #### L IPA, CMP, CRP, NAT #### [facility] [address] [place] [address] Dr. Keturah Fisher Platelet mean volume (Bld) [Entitic vol] 9.8 fL Normal 9.5-13.5 [facility] Comment on above: Performed By: #### L IPA, CMP, CRP, NAT #### [facility] [address] [place] [address] Dr. Keturah Fisher PLT 299 103/ul Normal 150-450 [facility] Comment on above: Performed By: #### L IPA, CMP, CRP, NAT #### [facility] [address] [place] [address] Dr. Keturah Fisher RBC 4.67 106/ul Normal 4.20-5.40 [facility] Comment on above: Performed By: #### L IPA, CMP, CRP, NAT #### [facility] [address] [place] [address] Dr. Keturah Fisher WBC 10.5 103/ul Normal 4.0-11.0 [facility] Comment on above: Performed By: #### L IPA, CMP, CRP, NAT #### [facility] [address] [place] [address] Dr. Keturah Fisher LIPASEon 10-11-2021 Lipase [Catalytic activity/Vol] 240.0 U/L Normal 73.0-393.0 [facility] Comment on above: Performed By: #### C BC #### [facility] [address] [place] [address] Dr. Keturah Fisher PROF 14(COMP METB)on 022 Albumin [Mass/Vol] 4.3 g/dL Normal 3.4-5.0 [facility] Comment on above: Performed By: #### C BC #### [facility] [address] [place] [address] Dr. Keturah Fisher Albumin/Globulin [Mass ratio] 1.3 {ratio} Normal [facility] Comment on above: Performed By: #### C BC #### [facility] [address] [place] [address] Dr. Keturah Fisher ALP [Catalytic activity/Vol] 162 U/L Critically high 46-116 [facility] Comment on above: Performed By: #### C BC #### [facility] [address] [place] [address] Dr. Keturah Fisher ALT [Catalytic activity/Vol] 21 U/L Normal 14-59 [facility] Comment on above: Performed By: #### C BC #### [facility] [address] [place] [address] Dr. Keturah Fisher Anion gap [Moles/Vol] 15.1 mmol/L Normal [facility] Comment on above: Performed By: #### C BC #### [facility] [address] [place] [address] Dr. Keturah Fisher AST [Catalytic activity/Vol] 16 U/L Normal 15-37 [facility] Comment on above: Performed By: #### C BC #### [facility] [address] [address] [address] Keturah Fisher Bilirubin [Mass/Vol] 0.2 mg/dL Normal 0.2-1.0 [facility] Comment on above: Performed By: #### C BC #### [facility] [address] [address] [address] Keturah Fisher Calcium [Mass/Vol] 9.6 mg/dL Normal 8.5-10.1 [facility] Comment on above: Performed By: #### C BC #### [facility] [address] [address] [address] Keturah Fisher Chloride [Moles/Vol] 104 mmol/L Normal 98-107 [facility] Comment on above: Performed By: #### C BC #### [facility] [address] [place] [address] Dr. Keturah Fisher CO2 [Moles/Vol] 24.6 mmol/L Normal 21.0-32.0 [facility] Comment on above: Performed By: #### C BC #### [facility] [address] [place] [address] Dr. Keturah Fisher Creatinine [Mass/Vol] 0.88 mg/dL Normal 0.55-1.02 [facility] Comment on above: Performed By: #### C BC #### [facility] [address] [place] [address] Dr. Keturah Fisher EGFR-AF DUTCH >60 Normal >=60 [facility] Comment on above: Performed By: #### C BC #### [facility] [address] [place] [address] Dr. Keutrah Fisher EGFR-NON AF DUTCH >60 Normal >=60 [facility] Comment on above: Performed By: #### C BC #### [facility] [address] [place] [address] Dr. Keturah Fisher Globulin (S) [Mass/Vol] 3.3 g/dL Normal [facility] Comment on above: Performed By: #### C BC #### [facility] [address] [place], [place] [id number] Dr. Keturah Fisher Glucose [Mass/Vol] 111 mg/dL Critically high 74-106 [facility] Comment on above: Performed By: #### C BC #### [facility] [address] [address] [address] Keturah Fisher Potassium [Moles/Vol] 3.7 mmol/L Normal 3.5-5.1 [facility] Comment on above: Performed By: #### C BC #### [facility] [address] [address] [address] Keturah Fisher Protein [Mass/Vol] 7.6 g/dL Normal 6.4-8.2 [facility] Comment on above: Performed By: #### C BC #### [facility] [address] [address] [address] Keturah Fisher Sodium [Moles/Vol] 140 mmol/L Normal 136-145 [facility] Comment on above: Performed By: #### C BC #### [facility] [address] [address] [address] Keturah Fisher Urea nitrogen [Mass/Vol] 11.0 mg/dL Normal 7.0-18.0 [facility] Comment on above: Performed By: #### C BC #### [facility] [address] [address] [address] Keturah Fisher Urea nitrogen/Creatinine [Mass ratio] 12.5 mg/mg Normal [facility] Comment on above: Performed By: #### C BC #### [facility] [address] [address] [address] Keturah Fisher PROTIMEon 10-11-2021 INR Coag (PPP) [Relative time] 0.94 {INR} Normal [facility] Comment on above: Performed By: #### P T, PTT ####[facility] [id number] [address]Dr. Keturah Fisher INR GUIDELINES SEE BELOW Normal The [facility] Comment on above: Result Comment: KARLY RED INR: 2.0 - 3.0 CONDITIONS NOT LISTED BELOW 2.5 - 3.5 FOR PROSTHETIC HEART VALVE REPLACEMENT 2.5 - 3.5 RECURRENT THROMBOSIS Performed By: #### P T, PTT ####[facility] [id number] [place], [place] [address]Kp. Keturah Fisher PT Coag (PPP) [Time] 10.2 s Normal 9.0-11.6 [facility] Comment on above: Performed By: #### P T, PTT ####[facility] [id number] [place], [place] [address]An. Keturah Fisher PTTon 10-11-2021 aPTT Coag (Bld) [Time] 28.0 s Normal 22.3-36.2 [facility] Comment on above: Performed By: #### P T, PTT ####[facility] [address] [place], [place] [address]Bl. Keturah Fisher Amphetamine Screen Ql (U)Ord ered By: Christa Lopez on 10-09-2021 Amphetamines Ql (U) Negative Negative [facility] Barbiturates [Presence] in U rineOrdered By: Christa Lopez on 10-09-2021 Barbiturates Ql (U) Negative Negative [facility] Basophils Auto (Bld) [#/Vol] Ordered By: Christa Lopez on 10-09-2021 Basophils (Bld) [#/Vol] 0.1 10*3/uL 0.0-0.2 [facility] Basophils/100 WBC Auto (Bld) Ordered By: Christa Lopez on 10-09-2021 Basophils/100 WBC (Bld) 0.9 % . [facility] Benzodiazepines [Presence] i n UrineOrdered By: Christa Lopez on 10-09-2021 Benzodiazepines Ql (U) Negative Negative [facility] Bilirubin Auto test strip Ql (U)Ordered By: Christa Lopez on 10-09-2021 Bilirubin Ql (U) Negative Negative [facility] Blood hemoglobin measurement (mass/volume)Ordered By: Christa Lopez on 10-09-2021 Hemoglobin (Bld) [Mass/Vol] 15.7 g/dL 11.8-15.4 [facility] Blood leukocytes automated c ount (number/volume)Ordered By: Christa Lopez on 10-09-2021 WBC (Bld) [#/Vol] 10.1 10*3/uL 4.5-11.0 [facility] Body fluid albumin measureme nt (mass/volume)Ordered By: Christa Lopez on 10-09-2021 Albumin (Body fld) [Mass/Vol] 4.5 g/dL 3.2-5.5 [facility] Cannabinoids [Presence] in U rine by Screen methodOrdered By: Christa Lopez on 10-09-2021 Cannabinoids Screen Ql (U) Negative Negative [facility] Comment on above: These are unconfirme d results and should not be used for legal purposes. Drug Cut-Off Concentration: AMPH 1000 ng/mL BAILEY 200 ng/mL JAKE 200 ng/mL COCM 300 ng/mL OP 300 ng/mL PCP 25 ng/mL THC 20 ng/mL Creatinine and Glomerular fi ltration rate.predicted panel (S/P/Bld)Ordered By: Christa Lopez on 10-09-2021 Creatinine [Mass/Vol] 0.85 mg/dL 0.44-1.03 [facility] Eosinophils Auto (Bld) [#/Vo l]Ordered By: Christa Lopez on 10-09-2021 Eosinophils (Bld) [#/Vol] 0.1 10*3/uL 0.0-0.45 [facility] Eosinophils/100 WBC Auto (Bl d)Ordered By: Christa Lopez on 10-09-2021 Eosinophils/100 WBC (Bld) 1.2 % . [facility] Erythrocyte distribution wid th Auto (RBC) [Ratio]Ordered By: Christa Lopez on 10-09-2021 Erythrocyte distribution width (RBC) [Ratio] 13.5 % 11.9-15.3 [facility] Estimated glomerular filtrat ion rate (GFR) non- AmericanOrdered By: Christa Lopez on 10-09-2021 GFR/1.73 sq M.predicted among non-blacks MDRD (S/P/Bld) [Vol rate/Area] > 60 mL/Min [facility] Globulin Calc (S) [Mass/Vol] Ordered By: Christa Lopez on 10-09-2021 Globulin (S) [Mass/Vol] 2.9 g/dL [facility] Hematocrit Auto (Bld) [Volum e fraction]Ordered By: Christa Lopez on 10-09-2021 Hematocrit (Bld) [Volume fraction] 47.1 % 34.0-46.4 [facility] Ketones Auto test strip (U) [Mass/Vol]Ordered By: Christa Lopez on 10-09-2021 Ketones (U) [Mass/Vol] Negative Negative Fi [facility] - Chemistry and C hemistry - challengeOrdered By: Christa Lopez on 10-09-2021 Lipase [Catalytic activity/Vol] 242.0 U/L 22-51 [facility] - Drug toxicology Ordered By: Christa Lopez on 10-09-2021 Opiates Ql (U) Negative Negative [facility] - Hematology and Cell countsOrdered By: Christa Lopez on 10-09-2021 Nucleated RBC/100 WBC (Bld) [Ratio] 0.1 % 0-0.5 [facility] Lymphocytes Auto (Bld) [#/Vo l]Ordered By: Christa Lopez on 10-09-2021 Lymphocytes (Bld) [#/Vol] 2.6 10*3/uL 1.00-4.8 [facility] Lymphocytes/100 WBC Auto (Bl d)Ordered By: Christa Lopez on 10-09-2021 Lymphocytes/100 WBC (Bld) 26.0 % . [facility] MCH Auto (RBC) [Entitic mass ]Ordered By: Christa Lopez on 10-09-2021 MCH (RBC) [Entitic mass] 32.4 pg 24.7-34.3 [facility] MCHC Auto (RBC) [Mass/Vol]Or dered By: Christa Lopez on 10-09-2021 MCHC (RBC) [Mass/Vol] 33.3 g/dL 32.0-35.0 [facility] MCV Auto (RBC) [Entitic vol] Ordered By: Christa Lopez on 10-09-2021 MCV (RBC) [Entitic vol] 97.3 fL 80-100 [facility] Monocytes Auto (Bld) [#/Vol] Ordered By: Christa Lopez on 10-09-2021 Monocytes (Bld) [#/Vol] 0.8 10*3/uL 0.0-0.8 [facility] Monocytes/100 WBC Auto (Bld) Ordered By: Christa Lopez on 10-09-2021 Monocytes/100 WBC (Bld) 7.6 % . [facility] Neutrophils Auto (Bld) [#/Vo l]Ordered By: Christa Lopez on 10-09-2021 Neutrophils (Bld) [#/Vol] 6.5 10*3/uL 1.8-7.7 [facility] Neutrophils/100 WBC Auto (Bl d)Ordered By: Christa Lopez on 10-09-2021 Neutrophils/100 WBC (Bld) 64.3 % . [facility] No Panel InformationOrdered By: Christa Lopez on 10-09-2021 Estimated GFR () > 60 mL/Min [facility] Comment on above: GFR estimated refere nce range: According to KDOQI guidelines, <60 ml/min/1.73m2 is sufficient to diagnose a patient with chronic kidney disease. Pharmacy Creatinine Clearance (Chem 61.23 [facility] Phencyclidine Screen Ql (U)O rdered By: Christa Lopez on 10-09-2021 Phencyclidine Ql (U) Negative Negative [facility] Platelet mean volume Auto (B ld) [Entitic vol]Ordered By: Christa Lopez on 10-09-2021 Platelet mean volume (Bld) [Entitic vol] 8.5 fL 6.3-10.7 [facility] Platelets Auto (Bld) [#/Vol] Ordered By: Christa Lopez on 10-09-2021 Platelets (Bld) [#/Vol] 284 10*3/uL 150-450 [facility] Protein Auto test strip (U) [Mass/Vol]Ordered By: Christa Lopez on 10-09-2021 Protein (U) [Mass/Vol] Negative Negative [facility] Protein [Mass/volume] in Ser um or PlasmaOrdered By: Christa Lopez on 10-09-2021 Protein [Mass/Vol] 7.4 g/dL 6.1-7.9 [facility] RBC Auto (Bld) [#/Vol]Ordere d By: Christa Lopez on 10-09-2021 RBC (Bld) [#/Vol] 4.84 10*6/uL 3.60-5.00 [facility] Serum or plasma alanine hughes otransferase measurement without P-5'-P (enzymatic activiOrdered By: Christa Lopez on 10-09-2021 ALT No additional P-5'-P [Catalytic activity/Vol] 19 U/L 10-60 [facility] Serum or plasma albumin/glob ulin mass ratioOrdered By: Christa Lopez on 10-09-2021 Albumin/Globulin [Mass ratio] 1.6 {ratio} [facility] Serum or plasma alkaline jaqueline sphatase measurement (enzymatic activity/volume)Ordered By: Christa Lopez on 10-09-2021 ALP [Catalytic activity/Vol] 138 U/L 32-92 [facility] Serum or plasma aspartate am inotransferase measurement (enzymatic activity/volume)Ordered By: Christa Lopez on 10-09-2021 AST [Catalytic activity/Vol] 31 U/L 10-42 [facility] Serum or plasma calcium priscilla urement (mass/volume)Ordered By: Christa Lopez on 10-09-2021 Calcium [Mass/Vol] 10.3 mg/dL 8.2-10.2 [facility] Serum or plasma chloride daron surement (moles/volume)Ordered By: Christa Lopez on 10-09-2021 Chloride [Moles/Vol] 100 mmol/L 95-114 [facility] Serum or plasma glucose priscilla urement (mass/volume)Ordered By: Christa Lopez on 10-09-2021 Glucose [Mass/Vol] 75 mg/dL 70-100 [facility] Comment on above: ADA recommended refe rence range Random Glucose Reference Range is dependent on time and content of last meal. Glucose of more than 200 mg/dL in a nonstressed, ambulatory subject supports the diagnosis of Diabetes Mellitus. Serum or plasma potassium me asurement (moles/volume)Ordered By: Christa Lopez on 10-09-2021 Potassium [Moles/Vol] 3.9 mmol/L 3.5-5.1 [facility] Serum or plasma sodium measu rement (moles/volume)Ordered By: Christa Lopez on 10-09-2021 Sodium [Moles/Vol] 136 mmol/L 136-146 [facility] Serum or plasma total biliru bin measurement (mass/volume)Ordered By: Christa Lopez on 10-09-2021 Bilirubin [Mass/Vol] 0.4 mg/dL 0.3-1.2 [facility] Serum or plasma total carbon dioxide measurement (moles/volume)Ordered By: Christa Lopez on 10-09-2021 CO2 [Moles/Vol] 24.1 mmol/L 22.0-30.0 [facility] Serum or plasma urea nitroge n measurement (mass/volume)Ordered By: Christa Lopez on 10-09-2021 Urea nitrogen [Mass/Vol] 12 mg/dL 9-23 [facility] Troponin I.cardiac [Mass/vol ume] in Serum or Plasma by High sensitivity methodOrdered By: Christa Lopez on 10-09-2021 Troponin I.cardiac High sensitivity method [Mass/Vol] 3 pg/mL 0-15 [facility] Urine appearanceOrdered By: Christa Lopez on 10-09-2021 Appearance (U) Clear Clear [facility] Urine cocaine detectionOrder ed By: Christa Lopez on 10-09-2021 Cocaine Ql (U) Negative Negative [facility] Urine colorOrdered By: Christa Lopez on 10-09-2021 Color (U) Yellow Yellow [facility] Urine glucose measurement by automated test strip (mass/volume)Ordered By: Christa Lopez on 10-09-2021 Glucose Auto test strip (U) [Mass/Vol] Normal mg/dL Normal [facility] Urine hemoglobin detection b y automated test stripOrdered By: Christa Lopez on 10-09-2021 Hemoglobin Auto test strip Ql (U) Negative Negative [facility] Urine leukocyte esterase det ection by automated test stripOrdered By: Christa Lopez on 10-09-2021 Leukocyte esterase Auto test strip Ql (U) Negative Negative [facility] Urine nitrite detection by a utomated test stripOrdered By: Christa Lopez on 10-09-2021 Nitrite Auto test strip Ql (U) Negative Negative [facility] Urobilinogen Auto test strip (U) [Mass/Vol]Ordered By: Christa Lopez on 10-09-2021 Urobilinogen (U) [Mass/Vol] Normal mg/dL Normal [facility] pH Auto test strip (U)Ordere d By: Christa Lopez on 10-09-2021 pH (U) 1.025 [pH] 1.001-1.03 0 [facility] pH (U) 5.5 [pH] 5.0-9.0 [facility] Albumin [Mass/volume] in Ser um or PlasmaOrdered By: Reinaldo Amor on 10-04-2021 Albumin [Mass/Vol] 3.6 g/dL 3.2-5.5 [facility] Basophils Auto (Bld) [#/Vol] Ordered By: Reinaldo Amor on 10-04-2021 Basophils (Bld) [#/Vol] 0.1 10*3/uL 0.0-0.2 [facility] Basophils/100 WBC Auto (Bld) Ordered By: Reinaldo Amor on 10-04-2021 Basophils/100 WBC (Bld) 0.8 % . [facility] Bilirubin Auto test strip Ql (U)Ordered By: Reinaldo Amor on 10-04-2021 Bilirubin Ql (U) Negative Negative [facility] Blood hemoglobin measurement (mass/volume)Ordered By: Reinaldo Amor on 10-04-2021 Hemoglobin (Bld) [Mass/Vol] 13.9 g/dL 11.8-15.4 [facility] Blood leukocytes automated c ount (number/volume)Ordered By: Reinaldo Amor on 10-04-2021 WBC (Bld) [#/Vol] 10.4 10*3/uL 4.5-11.0 [facility] Creatinine and Glomerular fi ltration rate.predicted panel (S/P/Bld)Ordered By: Reinaldo Amor on 10-04-2021 Creatinine [Mass/Vol] 0.73 mg/dL 0.44-1.03 [facility] Direct bilirubin measurement Ordered By: Reinaldo Amor on 10-04-2021 Bilirubin.direct [Mass/Vol] mg/dL 0.0-0.4 [facility] Eosinophils Auto (Bld) [#/Vo l]Ordered By: Reinaldo Amor on 10-04-2021 Eosinophils (Bld) [#/Vol] 0.1 10*3/uL 0.0-0.45 [facility] Eosinophils/100 WBC Auto (Bl d)Ordered By: Reinaldo Amor on 10-04-2021 Eosinophils/100 WBC (Bld) 0.5 % . [facility] Erythrocyte distribution wid th Auto (RBC) [Ratio]Ordered By: Reinaldo Amor on 10-04-2021 Erythrocyte distribution width (RBC) [Ratio] 13.7 % 11.9-15.3 [facility] Estimated glomerular filtrat ion rate (GFR) non- AmericanOrdered By: Reinaldo Amor on 10-04-2021 GFR/1.73 sq M.predicted among non-blacks MDRD (S/P/Bld) [Vol rate/Area] > 60 mL/Min [facility] Globulin Calc (S) [Mass/Vol] Ordered By: Reinaldo Amor on 10-04-2021 Globulin (S) [Mass/Vol] 2.6 g/dL [facility] Hematocrit Auto (Bld) [Volum e fraction]Ordered By: Reinaldo Amor on 10-04-2021 Hematocrit (Bld) [Volume fraction] 41.1 % 34.0-46.4 [facility] Ketones Auto test strip (U) [Mass/Vol]Ordered By: Reinaldo Amor on 10-04-2021 Ketones (U) [Mass/Vol] Negative Negative [facility] Laboratory - Chemistry and C hemistry - challengeOrdered By: Reinaldo Amor on 10-04-2021 Lipase [Catalytic activity/Vol] 107.0 U/L 22-51 [facility] Laboratory - Hematology and Cell countsOrdered By: Reinaldo Amor on 10-04-2021 Nucleated RBC/100 WBC (Bld) [Ratio] 0.1 % 0-0.5 [facility] Lymphocytes Auto (Bld) [#/Vo l]Ordered By: Reinaldo Amor on 10-04-2021 Lymphocytes (Bld) [#/Vol] 2.5 10*3/uL 1.00-4.8 [facility] Lymphocytes/100 WBC Auto (Bl d)Ordered By: Reinaldo Amor on 10-04-2021 Lymphocytes/100 WBC (Bld) 24.1 % . [facility] MCH Auto (RBC) [Entitic mass ]Ordered By: Reinaldo Amor on 10-04-2021 MCH (RBC) [Entitic mass] 32.6 pg 24.7-34.3 [facility] MCHC Auto (RBC) [Mass/Vol]Or dered By: Reinaldo Amor on 10-04-2021 MCHC (RBC) [Mass/Vol] 33.8 g/dL 32.0-35.0 [facility] MCV Auto (RBC) [Entitic vol] Ordered By: Reinaldo Amor on 10-04-2021 MCV (RBC) [Entitic vol] 96.5 fL 80-100 [facility] Monocytes Auto (Bld) [#/Vol] Ordered By: Reinaldo Amor on 10-04-2021 Monocytes (Bld) [#/Vol] 0.9 10*3/uL 0.0-0.8 [facility] Monocytes/100 WBC Auto (Bld) Ordered By: Reinaldo Amor on 10-04-2021 Monocytes/100 WBC (Bld) 8.4 % . [facility] Neutrophils Auto (Bld) [#/Vo l]Ordered By: Reinaldo Amor on 10-04-2021 Neutrophils (Bld) [#/Vol] 6.9 10*3/uL 1.8-7.7 [facility] Neutrophils/100 WBC Auto (Bl d)Ordered By: Reinaldo Amor on 10-04-2021 Neutrophils/100 WBC (Bld) 66.2 % . [facility] No Panel InformationOrdered By: Reinaldo Amor on 10-04-2021 Estimated GFR () > 60 mL/Min [facility] Comment on above: GFR estimated refere nce range: According to KDOQI guidelines, <60 ml/min/1.73m2 is sufficient to diagnose a patient with chronic kidney disease. Pharmacy Creatinine Clearance (Chem 71.30 [facility] Platelet mean volume Auto (B ld) [Entitic vol]Ordered By: Reinaldo Amor on 10-04-2021 Platelet mean volume (Bld) [Entitic vol] 8.0 fL 6.3-10.7 [facility] Platelets Auto (Bld) [#/Vol] Ordered By: Reinaldo Amor on 10-04-2021 Platelets (Bld) [#/Vol] 268 10*3/uL 150-450 [facility] Protein Auto test strip (U) [Mass/Vol]Ordered By: Reinaldo Amor on 10-04-2021 Protein (U) [Mass/Vol] Negative Negative [facility] Protein [Mass/volume] in Ser um or PlasmaOrdered By: Reinaldo Amor on 10-04-2021 Protein [Mass/Vol] 6.2 g/dL 6.1-7.9 [facility] RBC Auto (Bld) [#/Vol]Ordere d By: Reinaldo Amor on 10-04-2021 RBC (Bld) [#/Vol] 4.26 10*6/uL 3.60-5.00 [facility] Serum or plasma alanine hughes otransferase measurement without P-5'-P (enzymatic activiOrdered By: Reinaldo Amor on 10-04-2021 ALT No additional P-5'-P [Catalytic activity/Vol] 15 U/L 10-60 [facility] Serum or plasma albumin/glob ulin mass ratioOrdered By: Reinaldo Amor on 10-04-2021 Albumin/Globulin [Mass ratio] 1.4 {ratio} [facility] Serum or plasma alkaline jaqueline sphatase measurement (enzymatic activity/volume)Ordered By: Reinaldo Amor on 10-04-2021 ALP [Catalytic activity/Vol] 103 U/L 32-92 [facility] Serum or plasma amylase priscilla urement (enzymatic activity/volume)Ordered By: Reinaldo Amor on 10-04-2021 Amylase [Catalytic activity/Vol] 134 U/L 28-100 [facility] Serum or plasma aspartate am inotransferase measurement (enzymatic activity/volume)Ordered By: Reinaldo Amor on 10-04-2021 AST [Catalytic activity/Vol] 20 U/L 10-42 [facility] Serum or plasma calcium priscilla urement (mass/volume)Ordered By: Reinaldo Amor on 10-04-2021 Calcium [Mass/Vol] 9.6 mg/dL 8.2-10.2 [facility] Serum or plasma chloride daron surement (moles/volume)Ordered By: Reinaldo Amor on 10-04-2021 Chloride [Moles/Vol] 103 mmol/L 95-114 [facility] Serum or plasma ethanol priscilla urement (mass/volume)Ordered By: Reinaldo Amor on 10-04-2021 Ethanol [Mass/Vol] mg/dL [facility] Ethanol [Mass/Vol] TNP [facility] Comment on above: Test not performed Serum or plasma glucose priscilla urement (mass/volume)Ordered By: Reinaldo Amor on 10-04-2021 Glucose [Mass/Vol] 120 mg/dL 70-100 [facility] Comment on above: ADA recommended refe rence range Random Glucose Reference Range is dependent on time and content of last meal. Glucose of more than 200 mg/dL in a nonstressed, ambulatory subject supports the diagnosis of Diabetes Mellitus. Serum or plasma non-glucuron idated bilirubin measurement (mass/volume)Ordered By: Reinaldo Amor on 10-04-2021 Bilirubin.indirect [Mass/Vol] [facility] Test not performed Serum or plasma potassium me asurement (moles/volume)Ordered By: Reinaldo Amor on 10-04-2021 Potassium [Moles/Vol] 3.7 mmol/L 3.5-5.1 [facility] Serum or plasma sodium measu rement (moles/volume)Ordered By: Reinaldo Amor on 10-04-2021 Sodium [Moles/Vol] 137 mmol/L 136-146 [facility] Serum or plasma total biliru bin measurement (mass/volume)Ordered By: Reinaldo Amor on 10-04-2021 Bilirubin [Mass/Vol] 0.5 mg/dL 0.3-1.2 [facility] Serum or plasma total carbon dioxide measurement (moles/volume)Ordered By: Reinaldo Amor on 10-04-2021 CO2 [Moles/Vol] 24.9 mmol/L 22.0-30.0 [facility] Serum or plasma urea nitroge n measurement (mass/volume)Ordered By: Reinaldo Amor on 10-04-2021 Urea nitrogen [Mass/Vol] 7 mg/dL 9 [facility] Urine appearanceOrdered By: Reinaldo Amor on 10-04-2021 Appearance (U) Clear Clear [facility] Urine colorOrdered By: Ml Amor on 10-04-2021 Color (U) Yellow Yellow [facility] Urine glucose measurement by automated test strip (mass/volume)Ordered By: Reinaldo Amor on 10-04-2021 Glucose Auto test strip (U) [Mass/Vol] Normal mg/dL Normal [facility] Urine hemoglobin detection b y automated test stripOrdered By: Reinaldo Amor on 10-04-2021 Hemoglobin Auto test strip Ql (U) Negative Negative [facility] Urine leukocyte esterase det ection by automated test stripOrdered By: Reinaldo Amor on 10-04-2021 Leukocyte esterase Auto test strip Ql (U) Negative Negative [facility] Urine nitrite detection by a utomated test stripOrdered By: Reinaldo Amor on 10-04-2021 Nitrite Auto test strip Ql (U) Negative Negative [facility] Urobilinogen Auto test strip (U) [Mass/Vol]Ordered By: Reinaldo Amor on 10-04-2021 Urobilinogen (U) [Mass/Vol] Normal mg/dL Normal [facility] pH Auto test strip (U)Ordere d By: Reinaldo Amor on 10-04-2021 pH (U) 1.030 [pH] 1.001-1.03 0 [facility] pH (U) 5.5 [pH] 5.0-9.0 [facility] Basophils Auto (Bld) [#/Vol] Ordered By: Reinaldo Amor on 09-25-2021 Basophils (Bld) [#/Vol] 0.1 10*3/uL 0.0-0.2 [facility] Basophils/100 WBC Auto (Bld) Ordered By: Reinaldo Amor on 09-25-2021 Basophils/100 WBC (Bld) 1.2 % . [facility] Blood hemoglobin measurement (mass/volume)Ordered By: Reinaldo Amor on 09-25-2021 Hemoglobin (Bld) [Mass/Vol] 14.2 g/dL 11.8-15.4 [facility] Blood leukocytes automated c ount (number/volume)Ordered By: Reinaldo Amor on 09-25-2021 WBC (Bld) [#/Vol] 9.3 10*3/uL 4.5-11.0 [facility] Body fluid albumin measureme nt (mass/volume)Ordered By: PROVIDER TEMP on 09-25-2021 Albumin (Body fld) [Mass/Vol] 4.3 g/dL 3.2-5.5 [facility] Creatinine and Glomerular fi ltration rate.predicted panel (S/P/Bld)Ordered By: PROVIDER TEMP on 09-25-2021 Creatinine [Mass/Vol] 0.82 mg/dL 0.44-1.03 [facility] Eosinophils Auto (Bld) [#/Vo l]Ordered By: Reinaldo Amor on 09-25-2021 Eosinophils (Bld) [#/Vol] 0.2 10*3/uL 0.0-0.45 [facility] Eosinophils/100 WBC Auto (Bl d)Ordered By: Reinaldo Amor on 09-25-2021 Eosinophils/100 WBC (Bld) 1.9 % . [facility] Erythrocyte distribution wid th Auto (RBC) [Ratio]Ordered By: Reinaldo Amor on 09-25-2021 Erythrocyte distribution width (RBC) [Ratio] 13.7 % 11.9-15.3 [facility] Estimated glomerular filtrat ion rate (GFR) non- AmericanOrdered By: PROVIDER TEMP on 09-25-2021 GFR/1.73 sq M.predicted among non-blacks MDRD (S/P/Bld) [Vol rate/Area] > 60 mL/Min [facility] Globulin Calc (S) [Mass/Vol] Ordered By: PROVIDER TEMP on 09-25-2021 Globulin (S) [Mass/Vol] 3.3 g/dL [facility] Hematocrit Auto (Bld) [Volum e fraction]Ordered By: Reinaldo Amor on 09-25-2021 Hematocrit (Bld) [Volume fraction] 42.1 % 34.0-46.4 [facility] Laboratory - Chemistry and C hemistry - challengeOrdered By: Reinaldo Amor on 09-25-2021 Lipase [Catalytic activity/Vol] 64.0 U/L 22-51 [facility] Laboratory - Hematology and Cell countsOrdered By: Reinaldo Amor on 09-25-2021 Nucleated RBC/100 WBC (Bld) [Ratio] 0.1 % 0-0.5 [facility] Lymphocytes Auto (Bld) [#/Vo l]Ordered By: Reinaldo Amor on 09-25-2021 Lymphocytes (Bld) [#/Vol] 2.6 10*3/uL 1.00-4.8 [facility] Lymphocytes/100 WBC Auto (Bl d)Ordered By: Reinaldo Amor on 09-25-2021 Lymphocytes/100 WBC (Bld) 28.1 % . [facility] MCH Auto (RBC) [Entitic mass ]Ordered By: Reinaldo Amor on 09-25-2021 MCH (RBC) [Entitic mass] 32.5 pg 24.7-34.3 [facility] MCHC Auto (RBC) [Mass/Vol]Or dered By: Reinaldo Amor on 09-25-2021 MCHC (RBC) [Mass/Vol] 33.7 g/dL 32.0-35.0 [facility] MCV Auto (RBC) [Entitic vol] Ordered By: Reinaldo Amor on 09-25-2021 MCV (RBC) [Entitic vol] 96.7 fL 80-100 [facility] Monocytes Auto (Bld) [#/Vol] Ordered By: Reinaldo Amor on 09-25-2021 Monocytes (Bld) [#/Vol] 0.8 10*3/uL 0.0-0.8 [facility] Monocytes/100 WBC Auto (Bld) Ordered By: Reinaldo Amor on 09-25-2021 Monocytes/100 WBC (Bld) 8.2 % . [facility] Neutrophils Auto (Bld) [#/Vo l]Ordered By: Reinaldo Amor on 09-25-2021 Neutrophils (Bld) [#/Vol] 5.6 10*3/uL 1.8-7.7 [facility] Neutrophils/100 WBC Auto (Bl d)Ordered By: Reinaldo Amor on 09-25-2021 Neutrophils/100 WBC (Bld) 60.6 % . [facility] No Panel InformationOrdered By: PROVIDER TEMP on 09-25-2021 Estimated GFR () > 60 mL/Min [facility] Comment on above: GFR estimated refere nce range: According to KDOQI guidelines, <60 ml/min/1.73m2 is sufficient to diagnose a patient with chronic kidney disease. Pharmacy Creatinine Clearance (Chem 63.47 [facility] Platelet mean volume Auto (B ld) [Entitic vol]Ordered By: Reinaldo Amor on 09-25-2021 Platelet mean volume (Bld) [Entitic vol] 8.6 fL 6.3-10.7 [facility] Platelets Auto (Bld) [#/Vol] Ordered By: Reinaldo Amor on 09-25-2021 Platelets (Bld) [#/Vol] 221 10*3/uL 150-450 [facility] Protein [Mass/volume] in Ser um or PlasmaOrdered By: PROVIDER TEM on 09-25-2021 Protein [Mass/Vol] 7.6 g/dL 6.1-7.9 [facility] RBC Auto (Bld) [#/Vol]Ordere d By: Reinaldo Amor on 09-25-2021 RBC (Bld) [#/Vol] 4.35 10*6/uL 3.60-5.00 [facility] Serum or plasma alanine hughes otransferase measurement without P-5'-P (enzymatic activiOrdered By: PROVIDER TEMP on 09-25-2021 ALT No additional P-5'-P [Catalytic activity/Vol] 14 U/L 10-60 [facility] Serum or plasma albumin/glob ulin mass ratioOrdered By: PROVIDER TEMP on 09-25-2021 Albumin/Globulin [Mass ratio] 1.3 {ratio} [facility] Serum or plasma alkaline jaqueline sphatase measurement (enzymatic activity/volume)Ordered By: PROVIDER TEMP on 09-25-2021 ALP [Catalytic activity/Vol] 127 U/L 32-92 [facility] Serum or plasma amylase priscilla urement (enzymatic activity/volume)Ordered By: Reinaldo Amor on 09-25-2021 Amylase [Catalytic activity/Vol] 171 U/L 28-100 [facility] Serum or plasma aspartate am inotransferase measurement (enzymatic activity/volume)Ordered By: PROVIDER TEMP on 09-25-2021 AST [Catalytic activity/Vol] 21 U/L 10-42 [facility] Serum or plasma calcium priscilla urement (mass/volume)Ordered By: PROVIDER TEMP on 09-25-2021 Calcium [Mass/Vol] 10.1 mg/dL 8.2-10.2 [facility] Serum or plasma chloride daron surement (moles/volume)Ordered By: PROVIDER TEMP on 09-25-2021 Chloride [Moles/Vol] 103 mmol/L 95-114 [facility] Serum or plasma glucose priscilla urement (mass/volume)Ordered By: PROVIDER TEMP on 09-25-2021 Glucose [Mass/Vol] 93 mg/dL 70-100 [facility] Comment on above: ADA recommended refe rence range Random Glucose Reference Range is dependent on time and content of last meal. Glucose of more than 200 mg/dL in a nonstressed, ambulatory subject supports the diagnosis of Diabetes Mellitus. Serum or plasma potassium me asurement (moles/volume)Ordered By: PROVIDER TEMP on 09-25-2021 Potassium [Moles/Vol] 3.9 mmol/L 3.5-5.1 [facility] Serum or plasma sodium measu rement (moles/volume)Ordered By: PROVIDER TEMP on 09-25-2021 Sodium [Moles/Vol] 137 mmol/L 136-146 [facility] Serum or plasma total biliru bin measurement (mass/volume)Ordered By: PROVIDER TEMP on 09-25-2021 Bilirubin [Mass/Vol] 0.3 mg/dL 0.3-1.2 [facility] Serum or plasma total carbon dioxide measurement (moles/volume)Ordered By: PROVIDER TEMP on 09-25-2021 CO2 [Moles/Vol] 26.3 mmol/L 22.0-30.0 [facility] Serum or plasma urea nitroge n measurement (mass/volume)Ordered By: PROVIDER TEMP on 09-25-2021 Urea nitrogen [Mass/Vol] 8 mg/dL 9-23 [facility] AMYLASEon 09-17-2021 Amylase [Catalytic activity/Vol] 142 U/L Critically high 25-115 [facility] Comment on above: Performed By: #### A MY, CMP, LIPA ####[facility] [address] [place] [id number]. Keturah Phillip CBC AUTO DIFFon 09-17-2021 BASO # 0.1 103/ul Normal 0.0-0.1 [facility] Comment on above: Performed By: #### C BC ####[facility] [address] [place] [id number]. Elisaeli Fisher Basophils/100 WBC (Bld) 0.7 % Normal 0.2-2.0 [facility] Comment on above: Performed By: #### C BC ####[facility] [address] [place] [address]Dr. Elisaeli Fisher EO # 0.1 103/ul Normal 0.0-0.7 [facility] Comment on above: Performed By: #### C BC ####[facility] [address] [place] [address]Dr. Elisaeli Fisher Eosinophils/100 WBC (Bld) 1.3 % Normal 0.9-7.0 [facility] Comment on above: Performed By: #### C BC ####[facility] [address] [place], [place] [address]Dr. Keturah Phillip Erythrocyte distribution width (RBC) [Ratio] 13.2 % Normal 11.0-15.0 [facility] Comment on above: Performed By: #### C BC ####[facility] [address] [place], [place] [address]Dr. Keturah Phillip Hematocrit (Bld) [Volume fraction] 43.7 % Normal 36.0-48.0 [facility] Comment on above: Performed By: #### C BC ####[facility] [address] [place] [address]Dr. Keturah Phillip Hemoglobin (Bld) [Mass/Vol] 14.7 g/dL Normal 12.0-16.0 [facility] Comment on above: Performed By: #### C BC ####[facility] [address] [place], [place] [address]Dr. Keturah Fisher IG # 0.01 10e3/ul Normal 0.00-0.03 [facility] Comment on above: Performed By: #### C BC ####[facility] [address] [place] [address]Dr. Elisaeli Fisher IG % 0.1 % Normal 0.0-0.5 [facility] Comment on above: Performed By: #### C BC ####[facility] [address] [place] [address]Dr. Keturah Fisher LYMPH # 2.7 103/ul Normal 1.2-3.8 [facility] Comment on above: Performed By: #### C BC ####[facility] [address] [place] [address]Dr. Keturah Fisher Lymphocytes/100 WBC (Bld) 30.1 % Normal 20.5-60.0 [facility] Comment on above: Performed By: #### C BC ####[facility] [address] [place], [place] [address]Dr. Keturah iFsher MANUAL DIFF REQ NO Normal [facility] Comment on above: Performed By: #### C BC ####[facility] [address] [place] [id number]. Elisaeli Fisher MCH (RBC) [Entitic mass] 32.4 pg Normal 26.7-34.0 [facility] Comment on above: Performed By: #### C BC ####[facility] [address] [place], [place] [id number]. Elisaeli Fisher MCHC (RBC) [Mass/Vol] 33.6 g/dL Normal 29.9-35.2 [facility] Comment on above: Performed By: #### C BC ####[facility] [address] [place], [place] [id number] Elisaeli Fisher MCV (RBC) [Entitic vol] 96.3 fL Normal 81.0-99.0 [facility] Comment on above: Performed By: #### C BC ####[facility] [address] [place] [address]DrGopal Fisher MONO # 0.8 103/ul Normal 0.3-0.8 [facility] Comment on above: Performed By: #### C BC ####[facility] [address] [place] [id number]. Keturah Fisher Monocytes/100 WBC (Bld) 8.7 % Normal 1.7-12.0 [facility] Comment on above: Performed By: #### C BC ####[facility] [address] [place] [id number]. Keturah Fisher NEUT # 5.4 103/ul Normal 1.4-6.5 [facility] Comment on above: Performed By: #### C BC ####[facility] [address] [place] [id number]. Keturah Fisher Neutrophils/100 WBC (Bld) 59.1 % Normal 43.0-75.0 [facility] Comment on above: Performed By: #### C BC ####[facility] N[address]50[address] [place] [id number]. Keturah Fisher Platelet mean volume (Bld) [Entitic vol] 9.6 fL Normal 9.5-13.5 [facility] Comment on above: Performed By: #### C BC ####[facility] Reohdmwygy[address] [place] [id number]. Keturah Fisher PLT 272 103/ul Normal 150-450 [facility] Comment on above: Performed By: #### C BC ####[facility] Ckrsdepqvf6587 [place] [id number]. Keturah Fisher RBC 4.54 106/ul Normal 4.20-5.40 [facility] Comment on above: Performed By: #### C BC ####[facility] Amqrlhbttt6484 [place] [id number]. Keturah Fisher WBC 9.1 103/ul Normal 4.0-11.0 [facility] Comment on above: Performed By: #### C BC ####[facility] [address] [place] [id number]. Keturah Fisher ETHANOL (BLD ALC)on 09-18-19 22 ALC NOTE NOTE: 80 mg/dl is th e legal limit for a blood alcohol level Normal [facility] Comment on above: Performed By: #### L IPA, CMP, CRP, NAT #### [facility] [address] [place] [address] Dr. Keturah Fisher Ethanol [Mass/Vol] mg/dL Normal [facility] Comment on above: Performed By: #### L IPA, CMP, CRP, NAT #### [facility] [address] [place] [address] Dr. Keturah Fisher LIPASEon 09-17-2021 Lipase [Catalytic activity/Vol] 524.0 U/L Critically high 73.0-393.0 [facility] Comment on above: Performed By: #### C BC #### [facility] [address] [place] [address] Dr. Keturah Fisher PROF 14(COMP METB)on 022 Albumin [Mass/Vol] 3.9 g/dL Normal 3.4-5.0 [facility] Comment on above: Performed By: #### C BC #### [facility] [address] [place] [address] Dr. Keturah Fisher Albumin/Globulin [Mass ratio] 1.1 {ratio} Normal [facility] Comment on above: Performed By: #### C BC #### [facility] [address] [place] [address] Dr. Keturah Fisher ALP [Catalytic activity/Vol] 136 U/L Critically high 46-116 [facility] Comment on above: Performed By: #### C BC #### [facility] [address] [place] [address] Dr. Keturah Fisher ALT [Catalytic activity/Vol] 21 U/L Normal 14-59 [facility] Comment on above: Performed By: #### C BC #### [facility] [address] [place] [address] Dr. Keturah Fisher Anion gap [Moles/Vol] 12.7 mmol/L Normal [facility] Comment on above: Performed By: #### C BC #### [facility] [address] [place] [address] Dr. Keturah Fisher AST [Catalytic activity/Vol] 16 U/L Normal 15-37 [facility] Comment on above: Performed By: #### C BC #### [facility] [address] [place] [address] Dr. Keturah Fisher Bilirubin [Mass/Vol] 0.2 mg/dL Normal 0.2-1.0 [facility] Comment on above: Performed By: #### C BC #### [facility] [address] [place] [address] Dr. Keturah Fisher Calcium [Mass/Vol] 9.9 mg/dL Normal 8.5-10.1 [facility] Comment on above: Performed By: #### C BC #### [facility] [address] [place] [address] Dr. Keturah Fisher Chloride [Moles/Vol] 106 mmol/L Normal 98-107 [facility] Comment on above: Performed By: #### C BC #### [facility] [address] [place] [address] Dr. Keturah Fisher CO2 [Moles/Vol] 25.9 mmol/L Normal 21.0-32.0 [facility] Comment on above: Performed By: #### C BC #### [facility] [address] [place] [address] Dr. Keturah Fisher Creatinine [Mass/Vol] 0.96 mg/dL Normal 0.55-1.02 [facility] Comment on above: Performed By: #### C BC #### [facility] [address] [place] [address] Dr. Keturah Fisher EGFR-AF DUTCH >60 Normal >=60 [facility] Comment on above: Performed By: #### C BC #### [facility] [address] [place] [address] Dr. Keturah Fisher EGFR-NON AF DUTCH >60 Normal >=60 [facility] Comment on above: Performed By: #### C BC #### [facility] [address] [place] [address] Dr. Keturah Fisher Globulin (S) [Mass/Vol] 3.5 g/dL Normal [facility] Comment on above: Performed By: #### C BC #### [facility] [address] [place] [address] [address] Keturah Fisher Glucose [Mass/Vol] 113 mg/dL Critically high 74-106 [facility] Comment on above: Performed By: #### C BC #### [facility] [address] [place] [address] [address] Keturah Fisher Potassium [Moles/Vol] 3.6 mmol/L Normal 3.5-5.1 [facility] Comment on above: Performed By: #### C BC #### [facility] [address] [place] [address] [address] Keturah Fisher Protein [Mass/Vol] 7.4 g/dL Normal 6.4-8.2 [facility] Comment on above: Performed By: #### C BC #### [facility] [address] [place] [address] [address] Keturah Fisher Sodium [Moles/Vol] 141 mmol/L Normal 136-145 [facility] Comment on above: Performed By: #### C BC #### [facility] [address] [place] [address] [address] Keturah Fisher Urea nitrogen [Mass/Vol] 8.0 mg/dL Normal 7.0-18.0 [facility] Comment on above: Performed By: #### C BC #### [facility] [address] [place] [address] [address] Keturah Fisher Urea nitrogen/Creatinine [Mass ratio] 8.3 mg/mg Normal [facility] Comment on above: Performed By: #### C BC #### [facility] [address] [place] [address] [address] Keturah Fisher AMYLASEon 08-26-2021 Amylase [Catalytic activity/Vol] 94 U/L Normal 25-115 [facility] Comment on above: Performed By: #### A MY, CMP, LIPA ####[facility] [address] [place], [place] [address]WdDr. Keturah Fisher CBC AUTO DIFFon 08-26-2021 BASO # 0.1 103/ul Normal 0.0-0.1 [facility] Comment on above: Performed By: #### L IPA, CMP, CRP, NAT #### [facility] [address] [place] [address] Dr. Keturah Fisher Basophils/100 WBC (Bld) 0.7 % Normal 0.2-2.0 [facility] Comment on above: Performed By: #### L IPA, CMP, CRP, NAT #### [facility] [address] [place] [address] Dr. Keturah Fisher EO # 0.2 103/ul Normal 0.0-0.7 [facility] Comment on above: Performed By: #### L IPA, CMP, CRP, NAT #### [facility] [address] [place] [address] Dr. Keturah Fisher Eosinophils/100 WBC (Bld) 2.5 % Normal 0.9-7.0 [facility] Comment on above: Performed By: #### L IPA, CMP, CRP, NAT #### [facility] [address] [place] [address] Dr. Keturah Fisher Erythrocyte distribution width (RBC) [Ratio] 13.1 % Normal 11.0-15.0 [facility] Comment on above: Performed By: #### L IPA, CMP, CRP, NAT #### [facility] [address] [place] [address] Dr. Keturah Fisher Hematocrit (Bld) [Volume fraction] 42.4 % Normal 36.0-48.0 [facility] Comment on above: Performed By: #### L IPA, CMP, CRP, NAT #### [facility] [address] [place] [address] Dr. Keturah Fisher Hemoglobin (Bld) [Mass/Vol] 14.1 g/dL Normal 12.0-16.0 [facility] Comment on above: Performed By: #### L IPA, CMP, CRP, NAT #### [facility] [address] [place] [address] Dr. Keturah Fisher IG # 0.03 10e3/ul Normal 0.00-0.03 [facility] Comment on above: Performed By: #### L IPA, CMP, CRP, NAT #### [facility] [address] [place] [address] Dr. Keturah Fisher IG % 0.3 % Normal 0.0-0.5 [facility] Comment on above: Performed By: #### L IPA, CMP, CRP, NAT #### [facility] [address] [place] [address] [address] Keturah Fisher LYMPH # 2.6 103/ul Normal 1.2-3.8 [facility] Comment on above: Performed By: #### L IPA, CMP, CRP, NAT #### [facility] [address] [place] [address] Dr. Keturah Fisher Lymphocytes/100 WBC (Bld) 27.7 % Normal 20.5-60.0 [facility] Comment on above: Performed By: #### L IPA, CMP, CRP, NAT #### [facility] [address] [place] [address] Dr. Keturah Fisher MANUAL DIFF REQ NO Normal [facility] Comment on above: Performed By: #### L IPA, CMP, CRP, NAT #### [facility] [address] [place] [address] Dr. Keturah Fisher MCH (RBC) [Entitic mass] 32.6 pg Normal 26.7-34.0 [facility] Comment on above: Performed By: #### L IPA, CMP, CRP, NAT #### [facility] [address] [place] [address] Dr. Keturah Fisher MCHC (RBC) [Mass/Vol] 33.3 g/dL Normal 29.9-35.2 [facility] Comment on above: Performed By: #### L IPA, CMP, CRP, NAT #### [facility] [address] [place] [address] Dr. Keturah Fsiher MCV (RBC) [Entitic vol] 97.9 fL Normal 81.0-99.0 [facility] Comment on above: Performed By: #### L IPA, CMP, CRP, NAT #### [facility] [address] [place] [address] Dr. Keturah Fisher MONO # 1.2 103/ul Critically high 0.3-0.[address] [facility] Comment on above: Performed By: #### L IPA, CMP, CRP, NAT #### [facility] [address] [place] [address] Dr. Keturah Fisher Monocytes/100 WBC (Bld) 12.9 % Critically high 1.7-12.0 [facility] Comment on above: Performed By: #### L IPA, CMP, CRP, NAT #### [facility] [address] [place] [address] Dr. Keturah Fisher NEUT # 5.3 103/ul Normal 1.4-6.5 [facility] Comment on above: Performed By: #### L IPA, CMP, CRP, NAT #### [facility] [address] [place] [address] Dr. Keturah Fisher Neutrophils/100 WBC (Bld) 55.9 % Normal 43.0-75.0 [facility] Comment on above: Performed By: #### L IPA, CMP, CRP, NAT #### [facility] [address] [place] [address] Dr. Keturah Fisher Platelet mean volume (Bld) [Entitic vol] 9.8 fL Normal 9.5-13.5 [facility] Comment on above: Performed By: #### L IPA, CMP, CRP, NAT #### [facility] [address] [place] [address] Dr. Keturah Fisher PLT 229 103/ul Normal 150-450 [facility] Comment on above: Performed By: #### L IPA, CMP, CRP, NAT #### [facility] [address] [place] [address] Dr. Keturah Fisher RBC 4.33 106/ul Normal 4.20-5.40 [facility] Comment on above: Performed By: #### L IPA, CMP, CRP, NAT #### [facility] [address] [place] [address] Dr. Keturah Fisher WBC 9.5 103/ul Normal 4.0-11.0 [facility] Comment on above: Performed By: #### L IPA, CMP, CRP, NAT #### [facility] [address] [place] [address] [address]Gopal Fisher LIPASEon 08-26-2021 Lipase [Catalytic activity/Vol] 146.0 U/L Normal 73.0-393.0 [facility] Comment on above: Performed By: #### A MY, CMP, LIPA ####[facility] [address] [place] [address]DrGopal Fisher PROF 14(COMP METB)on 022 Albumin [Mass/Vol] 3.5 g/dL Normal 3.4-5.0 [facility] Comment on above: Performed By: #### A MY, CMP, LIPA ####[facility] [address] [place] [address]DrGopal Fisher Albumin/Globulin [Mass ratio] 1.1 {ratio} Normal [facility] Comment on above: Performed By: #### A MY, CMP, LIPA ####[facility] [address] [place] [address]Dr. Keturah Fisher ALP [Catalytic activity/Vol] 139 U/L Critically high 46-116 [facility] Comment on above: Performed By: #### A MY, CMP, LIPA ####[facility] [address] [place] [address]Dr. Keturah Fisher ALT [Catalytic activity/Vol] 21 U/L Normal 14-59 [facility] Comment on above: Performed By: #### A MY, CMP, LIPA ####[facility] [address] [place] [address]Dr. Keturah Fisher Anion gap [Moles/Vol] 11.4 mmol/L Normal [facility] Comment on above: Performed By: #### A MY, CMP, LIPA ####[facility] [address] [place] [address]Dr. Keturah Fisher AST [Catalytic activity/Vol] 21 U/L Normal 15-37 [facility] Comment on above: Performed By: #### A MY, CMP, LIPA ####[facility] [address] [place] [address]Dr. Keturah Fisher Bilirubin [Mass/Vol] 0.2 mg/dL Normal 0.2-1.0 [facility] Comment on above: Performed By: #### A MY, CMP, LIPA ####[facility] [address] [place] [address]Dr. Keturah Fisher Calcium [Mass/Vol] 9.2 mg/dL Normal 8.5-10.1 [facility] Comment on above: Performed By: #### A MY, CMP, LIPA ####[facility] [address] [place] [address]Dr. Keturah Fisher Chloride [Moles/Vol] 107 mmol/L Normal 98-107 [facility] Comment on above: Performed By: #### A MY, CMP, LIPA ####[facility] [address] [place], [place] [address]Dr. Keturah Fisher CO2 [Moles/Vol] 27.9 mmol/L Normal 21.0-32.0 [facility] Comment on above: Performed By: #### A MY, CMP, LIPA ####[facility] [address] [place] [address]Dr. Keturah Fisher Creatinine [Mass/Vol] 0.84 mg/dL Normal 0.55-1.02 [facility] Comment on above: Performed By: #### A MY, CMP, LIPA ####[facility] [address] [place] [address]Dr. Keturah Fisher EGFR-AF DUTCH >60 Normal >=60 [facility] Comment on above: Performed By: #### A MY, CMP, LIPA ####[facility] [address]ty[address] [place] [address]Dr. Keturah Fisher EGFR-NON AF DUTCH >60 Normal >=60 [facility] Comment on above: Performed By: #### A MY, CMP, LIPA ####[facility] [address] [place] [address]Dr. Keturah Fisher Globulin (S) [Mass/Vol] 3.3 g/dL Normal [facility] Comment on above: Performed By: #### A MY, CMP, LIPA ####[facility] [address] [place] [address]Dr. Keturah Fisher Glucose [Mass/Vol] 106 mg/dL Normal 74-106 [facility] Comment on above: Performed By: #### A MY, CMP, LIPA ####[facility] [address] [place] [address]Dr. Keturah Fisher Potassium [Moles/Vol] 4.3 mmol/L Normal 3.5-5.1 [facility] Comment on above: Performed By: #### A MY, CMP, LIPA ####[facility] Naz[address] [place] [address]Dr. Keturah Fisher Protein [Mass/Vol] 6.8 g/dL Normal 6.4-8.2 [facility] Comment on above: Performed By: #### A MY, CMP, LIPA ####[facility] [address] [place] [address]Dr. Keturah Fisher Sodium [Moles/Vol] 142 mmol/L Normal 136-145 [facility] Comment on above: Performed By: #### A MY, CMP, LIPA ####[facility] [address] [place] [address]Dr. Keturah Fisher Urea nitrogen [Mass/Vol] 11.0 mg/dL Normal 7.0-18.0 [facility] Comment on above: Performed By: #### A MY, CMP, LIPA ####[facility] [address] [place] [address]Dr. Keturah Fisher Urea nitrogen/Creatinine [Mass ratio] 13.1 mg/mg Normal [facility] Comment on above: Performed By: #### A MY, CMP, LIPA ####[facility] [address] [place], [place] [address]Dr. Keturah Fisher XR ABD FLAT UP_PA Jorje [...] MILADIS BARRERA Date: 2021-08-26 04:59 Normal [facility] AMYLASEon 08-22-2021 Amylase [Catalytic activity/Vol] 155 U/L Critically high 25-115 [facility] Comment on above: Performed By: #### C MP, NAT, LIPA #### [facility] [address] [place] [address] Dr. Keturah Fisher CBC AUTO DIFFon 08-22-2021 BASO # 0.1 103/ul Normal 0.0-0.1 [facility] Comment on above: Performed By: #### L IPA, CMP, CRP, NAT #### [facility] [address] [place] [address] Dr. Keturah Fisher Basophils/100 WBC (Bld) 0.7 % Normal 0.2-2.0 [facility] Comment on above: Performed By: #### L IPA, CMP, CRP, NAT #### [facility] [address] [place] [address] Dr. Keturah Fisher EO # 0.1 103/ul Normal 0.0-0.7 [facility] Comment on above: Performed By: #### L IPA, CMP, CRP, NAT #### [facility] [address] [place] [address] Dr. Keturah Fisher Eosinophils/100 WBC (Bld) 0.7 % Critically low 0.9-7.0 [facility] Comment on above: Performed By: #### L IPA, CMP, CRP, NAT #### [facility] [address] [place] [address] Dr. Keturah Fisher Erythrocyte distribution width (RBC) [Ratio] 13.2 % Normal 11.0-15.0 [facility] Comment on above: Performed By: #### L IPA, CMP, CRP, NAT #### [facility] [address] [place] [address] Dr. Keturah Fisher Hematocrit (Bld) [Volume fraction] 41.1 % Normal 36.0-48.0 [facility] Comment on above: Performed By: #### L IPA, CMP, CRP, NAT #### [facility] [address] [place] [address] Dr. Keturah Fisher Hemoglobin (Bld) [Mass/Vol] 13.8 g/dL Normal 12.0-16.0 [facility] Comment on above: Performed By: #### L IPA, CMP, CRP, NAT #### [facility] [address] [place] [address] Dr. Keturah Fisher IG # 0.03 10e3/ul Normal 0.00-0.03 [facility] Comment on above: Performed By: #### L IPA, CMP, CRP, NAT #### [facility] [address] [place] [address] Dr. Keturah Fisher IG % 0.2 % Normal 0.0-0.5 [facility] Comment on above: Performed By: #### L IPA, CMP, CRP, NAT #### [facility] [address] [place] [address] Dr. Keturah Fisher LYMPH # 2.6 103/ul Normal 1.2-3.8 [facility] Comment on above: Performed By: #### L IPA, CMP, CRP, NAT #### [facility] [address] [place] [address] Dr. Keturah Fisher Lymphocytes/100 WBC (Bld) 21.4 % Normal 20.5-60.0 [facility] Comment on above: Performed By: #### L IPA, CMP, CRP, NAT #### [facility] [address] [place] [address] Dr. Keturah Fisher MANUAL DIFF REQ NO Normal [facility] Comment on above: Performed By: #### L IPA, CMP, CRP, NAT #### [facility] [address] [place] [address] Dr. Keturah Fisher MCH (RBC) [Entitic mass] 32.2 pg Normal 26.7-34.0 [facility] Comment on above: Performed By: #### L IPA, CMP, CRP, NAT #### [facility] [address] [place] [address] Dr. Keturah Fisher MCHC (RBC) [Mass/Vol] 33.6 g/dL Normal 29.9-35.2 [facility] Comment on above: Performed By: #### L IPA, CMP, CRP, NAT #### [facility] [address] [place] [address] Dr. Keturah Fisher MCV (RBC) [Entitic vol] 95.8 fL Normal 81.0-99.0 [facility] Comment on above: Performed By: #### L IPA, CMP, CRP, NAT #### [facility] [address] [place] [address] Dr. Keturah Fisher MONO # 0.9 103/ul Critically high 0.3-0.[address] [facility] Comment on above: Performed By: #### L IPA, CMP, CRP, NAT #### [facility] [address] [place] [address] Dr. Keturah Fisher Monocytes/100 WBC (Bld) 7.6 % Normal 1.7-12.0 [facility] Comment on above: Performed By: #### L IPA, CMP, CRP, NAT #### [facility] [address] [place] [address] Dr. Keturah Fisher NEUT # 8.5 103/ul Critically high 1.4-6.[address] [facility] Comment on above: Performed By: #### L IPA, CMP, CRP, NAT #### [facility] [address] [place] [address] Dr. Keturah Fisher Neutrophils/100 WBC (Bld) 69.4 % Normal 43.0-75.0 [facility] Comment on above: Performed By: #### L IPA, CMP, CRP, NAT #### [facility] [address] [place] [address] Dr. Keturah Fisher Platelet mean volume (Bld) [Entitic vol] 9.5 fL Normal 9.5-13.5 [facility] Comment on above: Performed By: #### L IPA, CMP, CRP, NAT #### [facility] [address] [place] [address] Dr. Keturah Fisher PLT 261 103/ul Normal 150-450 [facility] Comment on above: Performed By: #### L IPA, CMP, CRP, NAT #### [facility] [address] [place] [address] Dr. Keturah Fisher RBC 4.29 106/ul Normal 4.20-5.40 [facility] Comment on above: Performed By: #### L IPA, CMP, CRP, NAT #### [facility] [address] [place] [address] Dr. Keturah Fisher WBC 12.2 103/ul Critically high 4.0-11.0 [facility] Comment on above: Performed By: #### L IPA, CMP, CRP, NAT #### [facility] [address] [place] [address] Dr. Keturah Fisher LIPASEon 08-22-2021 Lipase [Catalytic activity/Vol] 419.0 U/L Critically high 73.0-393.0 [facility] Comment on above: Performed By: #### C MP, NAT, LIPA #### [facility] [address] [place] [address] Dr. Keturah Fisher PROF 14(COMP METB)on 022 Albumin [Mass/Vol] 3.9 g/dL Normal 3.4-5.0 [facility] Comment on above: Performed By: #### C MP, NAT, LIPA #### [facility] [address] [place] [address] Dr. Keturah Fisher Albumin/Globulin [Mass ratio] 1.2 {ratio} Normal [facility] Comment on above: Performed By: #### C MP, NAT, LIPA #### [facility] [address] [address] [address] Keturah Fisher ALP [Catalytic activity/Vol] 137 U/L Critically high 46-116 [facility] Comment on above: Performed By: #### C MP NAT, LIPA #### [facility] [address] [address] [address] Keturah Fisher ALT [Catalytic activity/Vol] 22 U/L Normal 14-59 [facility] Comment on above: Performed By: #### C MP NAT, LIPA #### [facility] [address] [address] [address] Keturah Fisher Anion gap [Moles/Vol] 12.9 mmol/L Normal [facility] Comment on above: Performed By: #### C LIZY NAT, LIPA #### [facility] [address] [place] [address] Dr. Keturah Fisher AST [Catalytic activity/Vol] 20 U/L Normal 15-37 [facility] Comment on above: Performed By: #### C LIZY NAT, LIPA #### [facility] [address] [address] [address] Keturah Fisher Bilirubin [Mass/Vol] 0.2 mg/dL Normal 0.2-1.0 [facility] Comment on above: Performed By: #### C MP NAT, LIPA #### [facility] [address] [place] [address] Dr. Keturah Fisher Calcium [Mass/Vol] 9.5 mg/dL Normal 8.5-10.1 [facility] Comment on above: Performed By: #### C MP, ANT, LIPA #### [facility] [address] [place] [address] Dr. Keturah Fisher Chloride [Moles/Vol] 104 mmol/L Normal 98-107 [facility] Comment on above: Performed By: #### C MP, NAT, LIPA #### [facility] [address] [place] [address] Dr. Keturah Fisher CO2 [Moles/Vol] 23.7 mmol/L Normal 21.0-32.0 [facility] Comment on above: Performed By: #### C MP, NAT, LIPA #### [facility] [address] [address] [address] Keturah Fisher Creatinine [Mass/Vol] 0.85 mg/dL Normal 0.55-1.02 [facility] Comment on above: Performed By: #### C MP, NAT, LIPA #### [facility] [address] [address] [address] Keturah Fisher EGFR-AF DUTCH >60 Normal >=60 [facility] Comment on above: Performed By: #### C MP, NAT, LIPA #### [facility] [address] [address] [address] Keturah Fisher EGFR-NON AF DUTCH >60 Normal >=60 [facility] Comment on above: Performed By: #### C MP, NAT, LIPA #### [facility] [address] [address] [address] Keturah Fisher Globulin (S) [Mass/Vol] 3.3 g/dL Normal [facility] Comment on above: Performed By: #### C MP, NAT, LIPA #### [facility] [address] [address] [address] Keturah Fisher Glucose [Mass/Vol] 130 mg/dL Critically high 74-106 [facility] Comment on above: Performed By: #### C MP, NAT, LIPA #### [facility] [address] [address] [address] Keturah Fisher Potassium [Moles/Vol] 3.6 mmol/L Normal 3.5-5.1 [facility] Comment on above: Performed By: #### C MP, NAT, LIPA #### [facility] [address] [address] [address] Keturah Fisher Protein [Mass/Vol] 7.2 g/dL Normal 6.4-8.2 [facility] Comment on above: Performed By: #### C MP, NAT, LIPA #### [facility] [address] [address] [address] Keturah Fisher Sodium [Moles/Vol] 137 mmol/L Normal 136-145 [facility] Comment on above: Performed By: #### C NAT MEDEL LIPA #### [facility] [address] [address] [address] Keturah Fisher Urea nitrogen [Mass/Vol] 9.0 mg/dL Normal 7.0-18.0 [facility] Comment on above: Performed By: #### C NAT MEDEL LIPA #### [facility] [address] [address] [address] Keturah Fisher Urea nitrogen/Creatinine [Mass ratio] 10.6 mg/mg Normal [facility] Comment on above: Performed By: #### C NAT MEDEL LIPA #### [facility] [address] [address] [address] Keturah Fisher XR ABD FLAT UP_PA [...] TRI HANSON Date: 2021-08-22 14:54 Normal [facility] CBC AUTO DIFFon 08-13-2021 BASO # 0.1 103/ul Normal 0.0-0.1 [facility] Comment on above: Performed By: #### C BC ####[facility] [address] [id number]. Keturah Fisher Basophils/100 WBC (Bld) 0.6 % Normal 0.2-2.0 [facility] Comment on above: Performed By: #### C BC ####[facility] [address] [id number]. Keturah Fisher EO # 0.1 103/ul Normal 0.0-0.7 [facility] Comment on above: Performed By: #### C BC ####[facility] [address] [address]Dr. Keturah Fisher Eosinophils/100 WBC (Bld) 1.1 % Normal 0.9-7.0 [facility] Comment on above: Performed By: #### C BC ####[facility] [address] [place], [place] [address]Dr. Keturah Fisher Erythrocyte distribution width (RBC) [Ratio] 12.6 % Normal 11.0-15.0 [facility] Comment on above: Performed By: #### C BC ####[facility] [address] [place], [place] [address]Dr. Keturah Fisher Hematocrit (Bld) [Volume fraction] 42.3 % Normal 36.0-48.0 [facility] Comment on above: Performed By: #### C BC ####[facility] [address] [place], [place] [address]Dr. Keturah Fisher Hemoglobin (Bld) [Mass/Vol] 14.1 g/dL Normal 12.0-16.0 [facility] Comment on above: Performed By: #### C BC ####[facility] [address] [place], [place] [address]Dr. Keturah Fisher IG # 0.03 10e3/ul Normal 0.00-0.03 [facility] Comment on above: Performed By: #### C BC ####[facility] [address] [place], [place] [address]Dr. Keturah Fisher IG % 0.3 % Normal 0.0-0.5 [facility] Comment on above: Performed By: #### C BC ####[facility] [address] [place], [place] [address]Dr. Keturah Phillip LYMPH # 2.4 103/ul Normal 1.2-3.8 [facility] Comment on above: Performed By: #### C BC ####[facility] [address] [place], [place] [address]Dr. Elisaeli Fisher Lymphocytes/100 WBC (Bld) 22.3 % Normal 20.5-60.0 [facility] Comment on above: Performed By: #### C BC ####[facility] [address] [address]Dr. Keturah Fisher MANUAL DIFF REQ NO Normal [facility] Comment on above: Performed By: #### C BC ####[facility] [address] [id number]. Keturah Fisher MCH (RBC) [Entitic mass] 32.5 pg Normal 26.7-34.0 [facility] Comment on above: Performed By: #### C BC ####[facility] [address] [address]Dr. Keturah Fisher MCHC (RBC) [Mass/Vol] 33.3 g/dL Normal 29.9-35.2 [facility] Comment on above: Performed By: #### C BC ####[facility] [address] [place], [place] [address]Dr. Keturah Fisher MCV (RBC) [Entitic vol] 97.5 fL Normal 81.0-99.0 [facility] Comment on above: Performed By: #### C BC ####[facility] [address] [place], [place] [address]Dr. Keturah Fisher MONO # 1.0 103/ul Critically high 0.3-0.[address] [facility] Comment on above: Performed By: #### C BC ####[facility] [address] [place], [place] [address]Dr. Keturah Fisher Monocytes/100 WBC (Bld) 8.7 % Normal 1.7-12.0 [facility] Comment on above: Performed By: #### C BC ####[facility] [address] [place], [place] [address]DrGopal Fisher NEUT # 7.3 103/ul Critically high 1.4-6.[address] [facility] Comment on above: Performed By: #### C BC ####[facility] [address] [place], [place] [address]DrGopal Fisher Neutrophils/100 WBC (Bld) 67.0 % Normal 43.0-75.0 [facility] Comment on above: Performed By: #### C BC ####[facility] [address] [address]Dr. Keturah Fisher Platelet mean volume (Bld) [Entitic vol] 9.5 fL Normal 9.5-13.5 [facility] Comment on above: Performed By: #### C BC ####[facility] [address] [address]Dr. Keturah Fisher PLT 272 103/ul Normal 150-450 [facility] Comment on above: Performed By: #### C BC ####[facility] [address] [address]Dr. Keturah Fisher RBC 4.34 106/ul Normal 4.20-5.40 [facility] Comment on above: Performed By: #### C BC ####[facility] [address] [address]Dr. Keturah Fisher WBC 10.9 103/ul Normal 4.0-11.0 [facility] Comment on above: Performed By: #### C BC ####[facility] [id number]. Keturah Fisher CT ABD/PELV W CONon 08-14-19 [...] HEBERT MCPHERSON Date: 2021-08-13 17:14 Normal [facility] ER URINE PROFILEon 2 Bilirubin Ql (U) Negative Normal NEGATIVE [facility] Comment on above: Performed By: #### C BC #### [facility] [address] [place] [address] Dr. Keturah Fisher Clarity (U) CLEAR Normal CLEAR [facility] Comment on above: Performed By: #### C BC #### [facility] [address] [address] [address] Keturah Fisher Color (U) LT. YELLOW Normal YELLOW [facility] Comment on above: Performed By: #### C BC #### [facility] [address] [address] [address] Keturah BAH A micrscopic examina tion will be performed if indicated. Normal [facility] Comment on above: Performed By: #### C BC #### [facility] [address] [place] [address] Dr. Keturah Fisher Glucose Ql (U) Negative Normal NEGATIVE [facility] Comment on above: Performed By: #### C BC #### [facility] [address] [place] [address] Dr. Keturah Fisher Hemoglobin Ql (U) Negative Normal NEGATIVE [facility] Comment on above: Performed By: #### C BC #### [facility] [address] [place] [address] Dr. Keturah Fisher Ketones Ql (U) Negative Normal NEGATIVE [facility] Comment on above: Performed By: #### C BC #### [facility] [address] [place] [address] Dr. Keturah Fisher LEUKOCYTES Negative Normal NEGATIVE [facility] Comment on above: Performed By: #### C BC #### [facility] [address] [place] [address] Dr. Keturah Fisher Nitrite Ql (U) Negative Normal NEGATIVE [facility] Comment on above: Performed By: #### C BC #### [facility] [address] [place] [address] Dr. Keturah Fisher pH (U) 5.5 [pH] Normal 5-9 [facility] Comment on above: Performed By: #### C BC #### [facility] [address] [place] [address] Dr. Keturah Fisher SPEC GRAVITY 1.010 Normal 1.005-<=1. 025 [facility] Comment on above: Performed By: #### C BC #### [facility] [address] [place] [address] Dr. Keturah Fisher UA PROTEIN Negative Normal NEGATIVE/ TRACE [facility] Comment on above: Performed By: #### C BC #### [facility] [address] [place] [address] Dr. Keturah Fisher UR MICRO IND NOT INDICATED Normal [facility] Comment on above: Performed By: #### C BC #### [facility] [address] [place] [address] Dr. Keturah Fisher Urobilinogen Qn (U) 0.2 {Marizol'U}/dL Normal 0.2 - 1. 0 [facility] Comment on above: Performed By: #### C BC #### [facility] [address] [place] [address] Dr. Keturah Fisher LIPASEon 08-13-2021 Lipase [Catalytic activity/Vol] 217.0 U/L Normal 73.0-393.0 [facility] Comment on above: Performed By: #### C BC #### [facility] [address] [place] [address] Dr. Keturah Fisher PROF 14(COMP METB)on 022 Albumin [Mass/Vol] 3.9 g/dL Normal 3.4-5.0 [facility] Comment on above: Performed By: #### C BC #### [facility] [address] [place] [address] Dr. Keturah Fisher Albumin/Globulin [Mass ratio] 1.1 {ratio} Normal [facility] Comment on above: Performed By: #### C BC #### [facility] [address] [place] [address] Dr. Keturah Fisher ALP [Catalytic activity/Vol] 140 U/L Critically high 46-116 [facility] Comment on above: Performed By: #### C BC #### [facility] [address] [place] [address] Dr. Keturah Fisher ALT [Catalytic activity/Vol] 24 U/L Normal 14-59 [facility] Comment on above: Performed By: #### C BC #### [facility] [address] [place] [address] Dr. Keturah Fisher Anion gap [Moles/Vol] 11.7 mmol/L Normal [facility] Comment on above: Performed By: #### C BC #### [facility] [address] [place] [address] Dr. Keturah Fisher AST [Catalytic activity/Vol] 19 U/L Normal 15-37 [facility] Comment on above: Performed By: #### C BC #### [facility] [address] [address] [address] Keturah Fisher Bilirubin [Mass/Vol] 0.2 mg/dL Normal 0.2-1.0 [facility] Comment on above: Performed By: #### C BC #### [facility] [address] [address] [address] Keturah Fisher Calcium [Mass/Vol] 9.9 mg/dL Normal 8.5-10.1 [facility] Comment on above: Performed By: #### C BC #### [facility] [address] [address] [address] Keturah Fisher Chloride [Moles/Vol] 105 mmol/L Normal 98-107 [facility] Comment on above: Performed By: #### C BC #### [facility] [address] [address] [address] Keturah Fisher CO2 [Moles/Vol] 29.1 mmol/L Normal 21.0-32.0 [facility] Comment on above: Performed By: #### C BC #### [facility] [address] [address] [address] Keturah Fisher Creatinine [Mass/Vol] 0.81 mg/dL Normal 0.55-1.02 [facility] Comment on above: Performed By: #### C BC #### [facility] [address] [address] [address] Keturah Fisher EGFR-AF DUTCH >60 Normal >=60 [facility] Comment on above: Performed By: #### C BC #### [facility] [address] [address] [address] Keturah Fisher EGFR-NON AF DUTCH >60 Normal >=60 [facility] Comment on above: Performed By: #### C BC #### [facility] [address] [place] [address] Dr. Keturah Fisher Globulin (S) [Mass/Vol] 3.4 g/dL Normal [facility] Comment on above: Performed By: #### C BC #### [facility] [address] [address] [address] Keturah Fisher Glucose [Mass/Vol] 87 mg/dL Normal 74-106 [facility] Comment on above: Performed By: #### C BC #### [facility] [address] [address] [address] Keturah Fisher Potassium [Moles/Vol] 3.8 mmol/L Normal 3.5-5.1 [facility] Comment on above: Performed By: #### C BC #### [facility] [address] [address] [address] Keturah Fisher Protein [Mass/Vol] 7.3 g/dL Normal 6.4-8.2 [facility] Comment on above: Performed By: #### C BC #### [facility] [address] [address] [address] Keturah Fisher Sodium [Moles/Vol] 142 mmol/L Normal 136-145 [facility] Comment on above: Performed By: #### C BC #### [facility] [address] [address] [address] Keturah Fisher Urea nitrogen [Mass/Vol] 11.0 mg/dL Normal 7.0-18.0 [facility] Comment on above: Performed By: #### C BC #### [facility] [address] [address] [address] Keturah Fisher Urea nitrogen/Creatinine [Mass ratio] 13.6 mg/mg Normal [facility] Comment on above: Performed By: #### C BC #### [facility] [address] [address] [address] Keturah Fisher Albumin [Mass/volume] in Ser um or PlasmaOrdered By: Keaton Barnard on 08-11-2021 Albumin [Mass/Vol] 3.4 g/dL 3.2-5.5 [facility] Basophils Auto (Bld) [#/Vol] Ordered By: Keaton Barnard on 08-11-2021 Basophils (Bld) [#/Vol] 0.1 10*3/uL 0.0-0.2 [facility] Basophils/100 WBC Auto (Bld) Ordered By: Keaton Barnard on 08-11-2021 Basophils/100 WBC (Bld) 0.9 % . [facility] Bilirubin Test strip Ql (U)O rdered By: Keaton Barnard on 08-11-2021 Bilirubin Ql (U) Negative Negative [facility] Blood hemoglobin measurement (mass/volume)Ordered By: Keaton Barnard on 08-11-2021 Hemoglobin (Bld) [Mass/Vol] 14.1 g/dL 11.8-15.4 [facility] Blood leukocytes automated c ount (number/volume)Ordered By: Keaton Barnard on 08-11-2021 WBC (Bld) [#/Vol] 9.7 10*3/uL 4.5-11.0 [facility] Color Auto (U)Ordered By: Herminia Barnard on 08-11-2021 Color (U) Yellow Yellow [facility] Creatinine and Glomerular fi ltration rate.predicted panel (S/P/Bld)Ordered By: Keaton Barnard on 08-11-2021 Creatinine [Mass/Vol] 0.95 mg/dL 0.44-1.03 [facility] Direct bilirubin measurement Ordered By: Keaton Barnard on 08-11-2021 Bilirubin.direct [Mass/Vol] mg/dL 0.0-0.4 [facility] Eosinophils Auto (Bld) [#/Vo l]Ordered By: Keaton Barnard on 08-11-2021 Eosinophils (Bld) [#/Vol] 0.1 10*3/uL 0.0-0.45 [facility] Eosinophils/100 WBC Auto (Bl d)Ordered By: Keaton Barnard on 08-11-2021 Eosinophils/100 WBC (Bld) 1.3 % . [facility] Erythrocyte distribution wid th Auto (RBC) [Ratio]Ordered By: Keaton Barnard on 08-11-2021 Erythrocyte distribution width (RBC) [Ratio] 13.2 % 11.9-15.3 [facility] Estimated glomerular filtrat ion rate (GFR) non- AmericanOrdered By: Keaton Barnard on 08-11-2021 GFR/1.73 sq M.predicted among non-blacks MDRD (S/P/Bld) [Vol rate/Area] > 60 mL/Min [facility] Globulin Calc (S) [Mass/Vol] Ordered By: Keaton Barnard on 08-11-2021 Globulin (S) [Mass/Vol] 2.6 g/dL [facility] Hematocrit Auto (Bld) [Volum e fraction]Ordered By: Keaton Barnard on 08-11-2021 Hematocrit (Bld) [Volume fraction] 42.1 % 34.0-46.4 [facility] Ketones Auto test strip (U) [Mass/Vol]Ordered By: Keaton Barnard on 08-11-2021 Ketones (U) [Mass/Vol] Negative Negative [facility] - Chemistry and C hemistry - challengeOrdered By: Keaton Barnard on 08-11-2021 Lipase [Catalytic activity/Vol] 89.0 U/L - [facility] - CoagulationOrde red By: Keaton Barnard on 08-11-2021 PT Coag (PPP) [Time] 12.5 s 9.0-12.9 [facility] - Hematology and Cell countsOrdered By: Keaton Barnard on 08-11-2021 Nucleated RBC/100 WBC (Bld) [Ratio] 0.1 % 0-0.5 [facility] Lymphocytes Auto (Bld) [#/Vo l]Ordered By: Keaton Barnard on 08-11-2021 Lymphocytes (Bld) [#/Vol] 2.5 10*3/uL 1.00-4.8 [facility] Lymphocytes/100 WBC Auto (Bl d)Ordered By: Keaton Barnard on 08-11-2021 Lymphocytes/100 WBC (Bld) 25.8 % . [facility] MCH Auto (RBC) [Entitic mass ]Ordered By: Keaton Barnard on 08-11-2021 MCH (RBC) [Entitic mass] 32.4 pg 24.7-34.3 [facility] MCHC Auto (RBC) [Mass/Vol]Or dered By: Keaton Barnard on 08-11-2021 MCHC (RBC) [Mass/Vol] 33.4 g/dL 32.0-35.0 [facility] MCV Auto (RBC) [Entitic vol] Ordered By: Kaeton Barnard on 08-11-2021 MCV (RBC) [Entitic vol] 96.8 fL 80-100 [facility] Monocytes Auto (Bld) [#/Vol] Ordered By: Keaton Barnard on 08-11-2021 Monocytes (Bld) [#/Vol] 0.8 10*3/uL 0.0-0.8 [facility] Monocytes/100 WBC Auto (Bld) Ordered By: Keaton Barnard on 08-11-2021 Monocytes/100 WBC (Bld) 8.7 % . [facility] Neutrophils Auto (Bld) [#/Vo l]Ordered By: Keaton Barnard on 08-11-2021 Neutrophils (Bld) [#/Vol] 6.1 10*3/uL 1.8-7.7 [facility] Neutrophils/100 WBC Auto (Bl d)Ordered By: Keaton Barnard on 08-11-2021 Neutrophils/100 WBC (Bld) 63.3 % . [facility] Nitrite Test strip Ql (U)Ord ered By: Keaton Barnard on 08-11-2021 Nitrite Ql (U) Negative Negative [facility] No Panel InformationOrdered By: Keaton Barnard on 08-11-2021 Estimated GFR () > 60 mL/Min [facility] Comment on above: GFR estimated refere nce range: According to KDOQI guidelines, <60 ml/min/1.73m2 is sufficient to diagnose a patient with chronic kidney disease. Pharmacy Creatinine Clearance (Chem 62.33 [facility] Platelet mean volume Auto (B ld) [Entitic vol]Ordered By: Keaton Barnard on 08-11-2021 Platelet mean volume (Bld) [Entitic vol] 8.0 fL 6.3-10.7 [facility] Platelet poor plasma interna tional normalized ratio (INR) by coagulation assay (relatOrdered By: Keaton Barnard on 08-11-2021 INR Coag (PPP) [Relative time] 1.1 {INR} [facility] Comment on above: INR Therapeutic Rang [...] Platelets (Bld) [#/Vol] 252 10*3/uL 150-450 [facility] Protein Auto test strip (U) [Mass/Vol]Ordered By: Keaton Barnard on 08-11-2021 Protein (U) [Mass/Vol] Negative Negative Fi [facility] Protein [Mass/volume] in Ser um or PlasmaOrdered By: Keaton Barnard on 08-11-2021 Protein [Mass/Vol] 6.0 g/dL 6.1-7.9 [facility] RBC Auto (Bld) [#/Vol]Ordere d By: Keaton Barnard on 08-11-2021 RBC (Bld) [#/Vol] 4.35 10*6/uL 3.60-5.00 [facility] Serum or plasma alanine hughes otransferase measurement without P-5'-P (enzymatic activiOrdered By: Keaton Barnard on 08-11-2021 ALT No additional P-5'-P [Catalytic activity/Vol] 12 U/L 10-60 [facility] Serum or plasma albumin/glob ulin mass ratioOrdered By: Keaton Barnard on 08-11-2021 Albumin/Globulin [Mass ratio] 1.3 {ratio} [facility] Serum or plasma alkaline jaqueline sphatase measurement (enzymatic activity/volume)Ordered By: Keaton Barnard on 08-11-2021 ALP [Catalytic activity/Vol] 98 U/L 32-92 [facility] Serum or plasma aspartate am inotransferase measurement (enzymatic activity/volume)Ordered By: Keaton Barnard on 08-11-2021 AST [Catalytic activity/Vol] 17 U/L 10-42 [facility] Serum or plasma calcium priscilla urement (mass/volume)Ordered By: Keaton Barnard on 08-11-2021 Calcium [Mass/Vol] 9.3 mg/dL 8.2-10.2 [facility] [facility] Serum or plasma chloride daron surement (moles/volume)Ordered By: Keaton Barnard on 08-11-2021 Chloride [Moles/Vol] 104 mmol/L 95-114 [facility] Serum or plasma glucose priscilla urement (mass/volume)Ordered By: Keaton Barnard on 08-11-2021 Glucose [Mass/Vol] 95 mg/dL 70-100 [facility] Comment on above: ADA recommended refe rence range Random Glucose Reference Range is dependent on time and content of last meal. Glucose of more than 200 mg/dL in a nonstressed, ambulatory subject supports the diagnosis of Diabetes Mellitus. Serum or plasma non-glucuron idated bilirubin measurement (mass/volume)Ordered By: Keaton Barnard on 08-11-2021 Bilirubin.indirect [Mass/Vol] TNP [facility] Comment on above: Test not performed Serum or plasma potassium me asurement (moles/volume)Ordered By: Keaton Barnard on 08-11-2021 Potassium [Moles/Vol] 3.8 mmol/L 3.5-5.1 [facility] Serum or plasma sodium measu rement (moles/volume)Ordered By: Keaton Barnard on 08-11-2021 Sodium [Moles/Vol] 138 mmol/L 136-146 [facility] Serum or plasma total biliru bin measurement (mass/volume)Ordered By: Keaton Barnard on 08-11-2021 Bilirubin [Mass/Vol] 0.3 mg/dL 0.3-1.2 [facility] Serum or plasma total carbon dioxide measurement (moles/volume)Ordered By: Keaton Barnard on 08-11-2021 CO2 [Moles/Vol] 24.8 mmol/L 22.0-30.0 [facility] Serum or plasma urea nitroge n measurement (mass/volume)Ordered By: Keaton Barnard on 08-11-2021 Urea nitrogen [Mass/Vol] 10 mg/dL 9-23 [facility] Specific gravity Auto test s trip (U) [Rel density]Ordered By: Keaton Barnard on 08-11-2021 Specific gravity (U) [Rel density] 1.028 1.001-1.03 0 [facility] Troponin I.cardiac [Mass/vol ume] in Serum or Plasma by High sensitivity methodOrdered By: Keaton Barnard on 08-11-2021 Troponin I.cardiac High sensitivity method [Mass/Vol] 3 pg/mL 0-15 [facility] Urine clarity by refractomet ry automatedOrdered By: Keaton Barnard on 08-11-2021 Clarity Refractometry automated (U) Clear Clear [facility] Urine glucose measurement by automated test strip (mass/volume)Ordered By: Keaton Barnard on 08-11-2021 Glucose Auto test strip (U) [Mass/Vol] Normal mg/dL Normal [facility] Urine hemoglobin detection b y automated test stripOrdered By: Keaton Barnard on 08-11-2021 Hemoglobin Auto test strip Ql (U) Negative Negative [facility] Urine leukocyte esterase det ection by automated test stripOrdered By: Keaton Barnard on 08-11-2021 Leukocyte esterase Auto test strip Ql (U) Negative Negative [facility] Urobilinogen Auto test strip (U) [Mass/Vol]Ordered By: Keaton Barnard on 08-11-2021 Urobilinogen (U) [Mass/Vol] Normal mg/dL Normal [facility] pH Auto test strip (U)Ordere d By: Keaton Barnard on 08-11-2021 pH (U) 5.0 [pH] 5.0-9.0 [facility] AMYLASEon 07-31-2021 Amylase [Catalytic activity/Vol] 158 U/L Critically high 25-115 [facility] Comment on above: Performed By: #### L IPA, CMP, CRP, NAT #### [facility] [address] [place], [place] [address] Dr. Keturah Fisher CBC AUTO DIFFon 07-31-2021 BASO # 0.1 103/ul Normal 0.0-0.1 [facility] Comment on above: Performed By: #### C BC ####[facility] [address] [place] [address]Dr. Keturah Fisher Basophils/100 WBC (Bld) 0.7 % Normal 0.2-2.0 [facility] Comment on above: Performed By: #### C BC ####[facility] [address] [place] [id number] Fisher EO # 0.1 103/ul Normal 0.0-0.7 [facility] Comment on above: Performed By: #### C BC ####[facility] [address] [place] [id number]. Keturah Fisher Eosinophils/100 WBC (Bld) 0.9 % Normal 0.9-7.0 [facility] Comment on above: Performed By: #### C BC ####[facility] Rmjjtturb[address] [place], [place] [address]Dr. Keturah Fisher Erythrocyte distribution width (RBC) [Ratio] 12.7 % Normal 11.0-15.0 [facility] Comment on above: Performed By: #### C BC ####[facility] Ngijlivliv[address] [place], [place] [address]Dr. Keturah Fisher Hematocrit (Bld) [Volume fraction] 43.2 % Normal 36.0-48.0 [facility] Comment on above: Performed By: #### C BC ####[facility] Rhobeb[address] [place], [place] [address]Dr. Keturah Fisher Hemoglobin (Bld) [Mass/Vol] 14.5 g/dL Normal 12.0-16.0 [facility] Comment on above: Performed By: #### C BC ####[facility] Vlesojwwee[address] [place], [place] [address]Dr. Keturah Fisher IG # 0.04 10e3/ul Critically high 0.00-0.03 [facility] Comment on above: Performed By: #### C BC ####[facility] L[address]xe[address] [place], [place] [address]Dr. Keturah Fisher IG % 0.4 % Normal 0.0-0.5 [facility] Comment on above: Performed By: #### C BC ####[facility] Jzxmxhrdrs[address] [place], [place] [address]Dr. Keturah Fisher LYMPH # 2.8 103/ul Normal 1.2-3.8 [facility] Comment on above: Performed By: #### C BC ####[facility] Pkwvtwmrce[address] [place], [place] [address]Dr. Keturah Fisher Lymphocytes/100 WBC (Bld) 24.9 % Normal 20.5-60.0 [facility] Comment on above: Performed By: #### C BC ####[facility] [address] [place] [address]Dr. Keturah Fisher MANUAL DIFF REQ NO Normal [facility] Comment on above: Performed By: #### C BC ####[facility] [address] [place] [id number]. Keturah Fisher MCH (RBC) [Entitic mass] 32.7 pg Normal 26.7-34.0 [facility] Comment on above: Performed By: #### C BC ####[facility] [address] [place] [address]Dr. Keturah Fisher MCHC (RBC) [Mass/Vol] 33.6 g/dL Normal 29.9-35.2 [facility] Comment on above: Performed By: #### C BC ####[facility] Rlvjdygurw[address] [place], [place] [address]Dr. Keturah Fisher MCV (RBC) [Entitic vol] 97.5 fL Normal 81.0-99.0 [facility] Comment on above: Performed By: #### C BC ####[facility] [address] [place], [place] [address]Dr. Keturah Fisher MONO # 0.9 103/ul Critically high 0.3-0.[address] [facility] Comment on above: Performed By: #### C BC ####[facility] [address] [place] [address]Dr. Keturah Fisher Monocytes/100 WBC (Bld) 8.1 % Normal 1.7-12.0 [facility] Comment on above: Performed By: #### C BC ####[facility] Z[address]bar[address] [place], [place] [address]DrGopal Fisher NEUT # 7.3 103/ul Critically high 1.4-6.[address] [facility] Comment on above: Performed By: #### C BC ####[facility] [address]soisxpr[address] [place], [place] [address]Dr. Keturah Fisher Neutrophils/100 WBC (Bld) 65.0 % Normal 43.0-75.0 [facility] Comment on above: Performed By: #### C BC ####[facility] [address] [place] [address]Dr. Keturah Fisher Platelet mean volume (Bld) [Entitic vol] 10.0 fL Normal 9.5-13.5 [facility] Comment on above: Performed By: #### C BC ####[facility] [address] [place] [address]Dr. Keturah Fisher PLT 245 103/ul Normal 150-450 [facility] Comment on above: Performed By: #### C BC ####[facility] [address] [place] [address]Dr. Keturah Fisher RBC 4.43 106/ul Normal 4.20-5.40 [facility] Comment on above: Performed By: #### C BC ####[facility] [address] [place] [address]Dr. Keturah Fisher WBC 11.2 103/ul Critically high 4.0-11.0 [facility] Comment on above: Performed By: #### C BC ####[facility] [address] [place] [address]Dr. Keturah Fisher LIPASEon 07-31-2021 Lipase [Catalytic activity/Vol] 439.0 U/L Critically high 73.0-393.0 [facility] Comment on above: Performed By: #### L IPA, CMP, CRP, NAT #### [facility] [address] [place] [address] [address] Keturah Fisher PROF 14(COMP METB)on 022 Albumin [Mass/Vol] 3.6 g/dL Normal 3.4-5.0 [facility] Comment on above: Performed By: #### L IPA, CMP, CRP, NAT #### [facility] [address] [place] [address] [address] Keturah Fisher Albumin/Globulin [Mass ratio] 1.1 {ratio} Normal [facility] Comment on above: Performed By: #### L IPA, CMP, CRP, NAT #### [facility] [address] [place] [address] [address] Keturah Fisher ALP [Catalytic activity/Vol] 119 U/L Critically high 46-116 [facility] Comment on above: Performed By: #### L IPA, CMP, CRP, NAT #### [facility] [address] [place] [address] Dr. Keturah Fisher ALT [Catalytic activity/Vol] 20 U/L Normal 14-59 [facility] Comment on above: Performed By: #### L IPA, CMP, CRP, NAT #### [facility] [address] [place] [address] Dr. Keturah Fisher Anion gap [Moles/Vol] 13.4 mmol/L Normal [facility] Comment on above: Performed By: #### L IPA, CMP, CRP, NAT #### [facility] [address] [place] [address] Dr. Keturah Fisher AST [Catalytic activity/Vol] 16 U/L Normal 15-37 [facility] Comment on above: Performed By: #### L IPA, CMP, CRP, NAT #### [facility] [address] [place] [address] Dr. Keturah Fisher Bilirubin [Mass/Vol] 0.1 mg/dL Critically low 0.2-1.0 [facility] Comment on above: Performed By: #### L IPA, CMP, CRP, NAT #### [facility] [address] [place] [address] Dr. Keturah Fisher Calcium [Mass/Vol] 8.9 mg/dL Normal 8.5-10.1 [facility] Comment on above: Performed By: #### L IPA, CMP, CRP, NAT #### [facility] [address] [place] [address] Dr. Keturah Fisher Chloride [Moles/Vol] 106 mmol/L Normal 98-107 [facility] Comment on above: Performed By: #### L IPA, CMP, CRP, NAT #### [facility] [address] [place] [address] Dr. Keturah Fisher CO2 [Moles/Vol] 25.4 mmol/L Normal 21.0-32.0 [facility] Comment on above: Performed By: #### L IPA, CMP, CRP, NAT #### [facility] [address] [place] [address] [address] Keturah Fisher Creatinine [Mass/Vol] 0.73 mg/dL Normal 0.55-1.02 [facility] Comment on above: Performed By: #### L IPA, CMP, CRP, NAT #### [facility] [address] [place] [address] [address] Keturah Fisher EGFR-AF DUTCH >60 Normal >=60 [facility] Comment on above: Performed By: #### L IPA, CMP, CRP, NAT #### [facility] [address] [place] [address] Dr. Keturah Fisher EGFR-NON AF DUTCH >60 Normal >=60 [facility] Comment on above: Performed By: #### L IPA, CMP, CRP, NAT #### [facility] [address] [place] [address] Dr. Keturah Fisher Globulin (S) [Mass/Vol] 3.2 g/dL Normal [facility] Comment on above: Performed By: #### L IPA, CMP, CRP, NAT #### [facility] [address] [place] [address] Dr. Keturah Fisher Glucose [Mass/Vol] 105 mg/dL Normal 74-106 [facility] Comment on above: Performed By: #### L IPA, CMP, CRP, NAT #### [facility] [address] [place] [address] [address] Keturah Fisher Potassium [Moles/Vol] 3.8 mmol/L Normal 3.5-5.1 [facility] Comment on above: Performed By: #### L IPA, CMP, CRP, NAT #### [facility] [address] [place] [address] Dr. Keturah Fisher Protein [Mass/Vol] 6.8 g/dL Normal 6.4-8.2 [facility] Comment on above: Performed By: #### L IPA, CMP, CRP, NAT #### [facility] [address] [place] [address] Dr. Keturah Fisher Sodium [Moles/Vol] 141 mmol/L Normal 136-145 [facility] Comment on above: Performed By: #### L IPA, CMP, CRP, NAT #### [facility] [address] [place] [address] [address] Keturah Fisher Urea nitrogen [Mass/Vol] 12.0 mg/dL Normal 7.0-18.0 [facility] Comment on above: Performed By: #### L IPA, CMP, CRP, NAT #### [facility] [address] [place] [address] [address] Keturah Fisher Urea nitrogen/Creatinine [Mass ratio] 16.4 mg/mg Normal [facility] Comment on above: Performed By: #### L IPA, CMP, CRP, NAT #### [facility] [address] [place] [address] Dr. Keturah Fisher TROPONIN, HIGH SENSITIVITYon 07-31-2021 HSTROP 4.2 pg/mL Normal 4.0-51.3 [facility] Comment on above: Result Comment: CUT- OFF POINTS HAVE BEEN ESTABLISHED BASED ON THE FOURTH UNIVERSAL DEFINITIONS OF MYOCARDIAL INFARCTION. THE UPPER REFERENCE LIMIT (URL) OF TROPONIN, DEFINED THE 99TH PERCENTILE OF cTnI DISTRIBUTION IN A REFERENCE POPULATION, HAS BEEN CONFIRMED THE DECISION THRESHOLD FOR OR DIAGNOSIS. Performed By: #### L IPA, CMP, CRP, NAT #### [facility] [address] [place] [address] [address] Keturah Fisher AMYLASEon 07-19-2021 Amylase [Catalytic activity/Vol] 198 U/L Critically high 25-115 [facility] Comment on above: Performed By: #### A MY, LIPA, CMP ####[facility] [address] [place] [address]Dr. Keturah Fisher CBC AUTO DIFFon 07-19-2021 BASO # 0.1 103/ul Normal 0.0-0.1 [facility] Comment on above: Performed By: #### C BC ####[facility] [address] [place] [address]Dr. Keturah Fisher Basophils/100 WBC (Bld) 0.7 % Normal 0.2-2.0 [facility] Comment on above: Performed By: #### C BC ####[facility] [address] [place] [address]Dr. Keturah Fisher EO # 0.1 103/ul Normal 0.0-0.7 [facility] Comment on above: Performed By: #### C BC ####[facility] [address] [place], [place] [address]Dr. Keturah Fisher Eosinophils/100 WBC (Bld) 1.0 % Normal 0.9-7.0 [facility] Comment on above: Performed By: #### C BC ####[facility] [address] [place], [place] [address]Dr. Keturah Fisher Erythrocyte distribution width (RBC) [Ratio] 12.5 % Normal 11.0-15.0 [facility] Comment on above: Performed By: #### C BC ####[facility] [address] [place], [place] [address]Dr. Elisaeli Fisher Hematocrit (Bld) [Volume fraction] 42.4 % Normal 36.0-48.0 [facility] Comment on above: Performed By: #### C BC ####[facility] [address] [place], [place] [address]Dr. Keturah Fisher Hemoglobin (Bld) [Mass/Vol] 14.2 g/dL Normal 12.0-16.0 [facility] Comment on above: Performed By: #### C BC ####[facility] [address] [place], [place] [address]Dr. Elisaeli Fisher IG # 0.03 10e3/ul Normal 0.00-0.03 [facility] Comment on above: Performed By: #### C BC ####[facility] [address] [place], [place] [address]Dr. Elisaeli Fisher IG % 0.3 % Normal 0.0-0.5 [facility] Comment on above: Performed By: #### C BC ####[facility] [address] [place], [place] [address]Dr. Keturah Fisher LYMPH # 3.0 103/ul Normal 1.2-3.8 [facility] Comment on above: Performed By: #### C BC ####[facility] [address] [place] [id number]. Elisaeli Fisher Lymphocytes/100 WBC (Bld) 29.5 % Normal 20.5-60.0 [facility] Comment on above: Performed By: #### C BC ####[facility] [address] [place] [id number]. Keturah Fisher MANUAL DIFF REQ NO Normal [facility] Comment on above: Performed By: #### C BC ####[facility] [address]xr[address] [place] [id number]. Keturah Fisher MCH (RBC) [Entitic mass] 32.8 pg Normal 26.7-34.0 [facility] Comment on above: Performed By: #### C BC ####[facility] [address] [place] [id number]. Keturah Fisher MCHC (RBC) [Mass/Vol] 33.5 g/dL Normal 29.9-35.2 [facility] Comment on above: Performed By: #### C BC ####[facility] [address]dsod[address] [place] [id number]. Keturah Fisher MCV (RBC) [Entitic vol] 97.9 fL Normal 81.0-99.0 [facility] Comment on above: Performed By: #### C BC ####[facility] [address] [place] [id number]. Keturah Fisher MONO # 1.0 103/ul Critically high 0.3-0.[address] [facility] Comment on above: Performed By: #### C BC ####[facility] [address]rg[address] [place] [id number]. Keturah Fisher Monocytes/100 WBC (Bld) 9.3 % Normal 1.7-12.0 [facility] Comment on above: Performed By: #### C BC ####[facility] [address]ls[address] [place] [id number]. Keturah Fisher NEUT # 6.1 103/ul Normal 1.4-6.5 [facility] Comment on above: Performed By: #### C BC ####[facility] [address] [place] [address]Dr. Keturah Fisher Neutrophils/100 WBC (Bld) 59.2 % Normal 43.0-75.0 [facility] Comment on above: Performed By: #### C BC ####[facility] [address] [place] [address]Dr. Elisaeli Phillip Platelet mean volume (Bld) [Entitic vol] 9.8 fL Normal 9.5-13.5 [facility] Comment on above: Performed By: #### C BC ####[facility] [address] [place] [address]Dr. Keturah Fisher PLT 249 103/ul Normal 150-450 [facility] Comment on above: Performed By: #### C BC ####[facility] [address] [place], [place] [address]Dr. Keturah Fisher RBC 4.33 106/ul Normal 4.20-5.40 [facility] Comment on above: Performed By: #### C BC ####[facility] [address] [place] [address]Dr. Keturah Phillip WBC 10.2 103/ul Normal 4.0-11.0 [facility] Comment on above: Performed By: #### C BC ####[facility] [address] [place], [place] [address]Dr. Keturah Fisher LIPASEon 07-19-2021 Lipase [Catalytic activity/Vol] 554.0 U/L Critically high 73.0-393.0 [facility] Comment on above: Performed By: #### A MY, LIPA, CMP ####[facility] [address] [place] [address]Dr. Keturah Fisher PROF 14(COMP METB)on 022 Albumin [Mass/Vol] 4.0 g/dL Normal 3.4-5.0 [facility] Comment on above: Performed By: #### A MY, LIPA, CMP ####[facility] [address] [place], [place] [address]Dr. Keturah Fisher Albumin/Globulin [Mass ratio] 1.1 {ratio} Normal [facility] Comment on above: Performed By: #### A ROB BERNSTEIN, CMP ####[facility] [address] [place] [address]Dr. Keturah Fisher ALP [Catalytic activity/Vol] 141 U/L Critically high 46-116 [facility] Comment on above: Performed By: #### A ROB BERNSTEIN, CMP ####[facility] [address] [place] [address]Dr. Keturah Fisher ALT [Catalytic activity/Vol] 21 U/L Normal 14-59 [facility] Comment on above: Performed By: #### A ROB BERNSTEIN, CMP ####[facility] [address]wl[address] [place] [address]Dr. Keturah Fisher Anion gap [Moles/Vol] 10.3 mmol/L Normal [facility] Comment on above: Performed By: #### A ROB BERNSTEIN, CMP ####[facility] [address] [place], [place] [address]Dr. Keturah Fisher AST [Catalytic activity/Vol] 22 U/L Normal 15-37 [facility] Comment on above: Performed By: #### A ROB BERNSTEIN, CMP ####[facility] [address] [place] [address]Dr. Elisaeli Fisher Bilirubin [Mass/Vol] 0.3 mg/dL Normal 0.2-1.0 [facility] Comment on above: Performed By: #### A ROB BERNSTEIN, CMP ####[facility] [address] [place] [address]Dr. Elisaeli Fisher Calcium [Mass/Vol] 9.9 mg/dL Normal 8.5-10.1 [facility] Comment on above: Performed By: #### A ROB BERNSTEIN, CMP ####[facility] [address] [place] [address]Dr. Keturah Fisher Chloride [Moles/Vol] 103 mmol/L Normal 98-107 [facility] Comment on above: Performed By: #### A ROB BERNSTEIN, CMP ####[facility] [address]xs[address] [place] [id number]. Keturah Fisher CO2 [Moles/Vol] 27.6 mmol/L Normal 21.0-32.0 [facility] Comment on above: Performed By: #### A MY, LIPA, CMP ####[facility] [address] [place] [address]Dr. Keturah Fisher Creatinine [Mass/Vol] 0.93 mg/dL Normal 0.55-1.02 [facility] Comment on above: Performed By: #### A MY, LIPA, CMP ####[facility] [address] [place] [address]Dr. Keturah Fisher EGFR-AF DUTCH >60 Normal >=60 [facility] Comment on above: Performed By: #### A MY, LIPA, CMP ####[facility] [address]solw[address] [place] [address]Dr. Keturah Fisher EGFR-NON AF DUTCH >60 Normal >=60 [facility] Comment on above: Performed By: #### A MY, LIPA, CMP ####[facility] [address]xutkr[address] [place] [address]Dr. Keturah Fisher Globulin (S) [Mass/Vol] 3.5 g/dL Normal [facility] Comment on above: Performed By: #### A MY, LIPA, CMP ####[facility] [address] [place] [address]Dr. Keturah Fisher Glucose [Mass/Vol] 99 mg/dL Normal 74-106 [facility] Comment on above: Performed By: #### A MY, LIPA, CMP ####[facility] [address]ics[address] [place] [address]Dr. Keturah Fisher Potassium [Moles/Vol] 3.9 mmol/L Normal 3.5-5.1 [facility] Comment on above: Performed By: #### A MY, LIPA, CMP ####[facility] [address]xc[address] [place] [address]Dr. Keturah Fisher Protein [Mass/Vol] 7.5 g/dL Normal 6.4-8.2 [facility] Comment on above: Performed By: #### A ROB BERNSTEIN, CMP ####[facility] [address]ps[address] [place] [address]Dr. Keturah Fisher Sodium [Moles/Vol] 137 mmol/L Normal 136-145 [facility] Comment on above: Performed By: #### A ROB BERNSTEIN, CMP ####[facility] [address] [place] [id number]. Keturah Fisher Urea nitrogen [Mass/Vol] 9.0 mg/dL Normal 7.0-18.0 [facility] Comment on above: Performed By: #### A ROB BERNSTEIN, CMP ####[facility] [id number] [place] [id number]. Keturah Fisher Urea nitrogen/Creatinine [Mass ratio] 9.7 mg/mg Normal [facility] Comment on above: Performed By: #### A ROB BERNSTEIN, CMP ####[facility] [id number] [id number]. Keturah Fisher XR ABD FLAT UP_PA Jorje [...] LYNNE PERDOMO Date: 2021-07-19 16:57 Normal [facility] COVID Quick Testingon 2021 Result Positive [employer] Other Amylaseon 03-26-2020 Amylase [Catalytic activity/Vol] 185 U/L High 28 - 100 U/L [facility], [place] CBC Auto Differentialon 03-09 Basophils (Bld) [#/Vol] 0.06 10*3/uL [place] Basophils/100 WBC (Bld) 1 % 0 - 2 % [place] Differential Type NOT REPORTED [place] Eosinophils (Bld) [#/Vol] 0.12 10*3/uL [place] Eosinophils/100 WBC (Bld) 1 % 1 - 4 % [place] Erythrocyte distribution width (RBC) [Ratio] 12.4 % 11.8 - 14.4 % [place] Hematocrit (Bld) [Volume fraction] 40.6 % 36.3 - 47.1 % [place] Hemoglobin (Bld) [Mass/Vol] 13.7 g/dL 11.9 - 15.1 g/dL [place] Immature granulocytes (Bld) [#/Vol] 0 % 0 [place] Immature granulocytes (Bld) [#/Vol] 10*3/uL [place] Lymphocytes (Bld) [#/Vol] 2.62 10*3/uL [place] Lymphocytes/100 WBC (Bld) 27 % 24 - 43 % [place] MCH (RBC) [Entitic mass] 33.4 pg 25.2 - 33.5 pg [place] MCHC (RBC) [Mass/Vol] 33.7 g/dL 28.4 - 34.8 g/dL [place] MCV (RBC) [Entitic vol] 99.0 fL 82.6 - 102.9 fL [place] Monocytes (Bld) [#/Vol] 0.78 10*3/uL [place] Monocytes/100 WBC (Bld) 8 % 3 - 12 % [place] Platelet mean volume (Bld) [Entitic vol] 9.4 fL 8.1 - 13.5 fL [place] Platelets (Bld) [#/Vol] 235 10*3/uL [place] Platelets (Bld) [#/Vol] NOT REPORTED [place] RBC (Bld) [#/Vol] 4.10 10*6/uL 3.95 - 5.11 m/uL [place] RBC morphology finding Nom (Bld) NOT REPORTED [place] Segmented neutrophils/100 WBC (Bld) 63 % 36 - 65 % [place] Segs Absolute 5.96 [place] WBC (Bld) [#/Vol] 9.6 10*3/uL [place] WBC (Bld) [#/Vol] 0.0 10*3/uL 0.0 per 100 WBC [place] WBC Morphology NOT REPORTED [place] Comprehensive Metabolic Pane l w/ Reflex to MGon 03-26-2020 Albumin [Mass/Vol] 4.3 g/dL 3.5 - 5.2 g/dL [place] Albumin/Globulin [Mass ratio] 1.7 {ratio} [place] ALP [Catalytic activity/Vol] 117 U/L High 35 - 104 U/L [place] ALT [Catalytic activity/Vol] 11 U/L 5 - 33 U/L [place] Anion gap [Moles/Vol] 9 mmol/L 9 - 17 mmol/L [place] AST [Catalytic activity/Vol] 18 U/L <32 [place] Bilirubin Ql (U) 0.15 mg/dL Low 0.3 - 1.2 mg/dL [place] Bun/Cre Ratio 12 [place] Calcium [Mass/Vol] 9.7 mg/dL 8.6 - 10. 4 mg/dL [place] Chloride [Moles/Vol] 102 mmol/L 98 - 10 7 mmol/L [place] CO2 [Moles/Vol] 25 mmol/L 20 - 31 mmol/L [place] Creatinine [Mass/Vol] 0.74 mg/dL 0.5 - 0.9 mg/dL [place] GFR >60 >60 mL/min [place] GFR Non- >60 >60 mL/min [place] Glucose [Mass/Vol] 94 mg/dL 70 - 99 mg/dL [place] Potassium [Moles/Vol] 4.2 mmol/L 3.7 - 5.3 mmol/L [place] Protein [Mass/Vol] 6.8 g/dL 6.4 - 8.3 g/dL [place] Sodium [Moles/Vol] 136 mmol/L 135 - 144 mmol/L [place] Urea nitrogen [Mass/Vol] 9 mg/dL 6 - 20 mg/dL [place] Lactic Acidon 03-26-2020 Lactate [Moles/Vol] 1.3 mmol/L 0.5 - 2. 2 mmol/L [place] Lipaseon 03-26-2020 Interpretation and review of laboratory results Abnormal [place] Lipase [Catalytic activity/Vol] 225 U/L Critically high 13 - 60 U/L [place] Metabolic Panelon 03-26-2020 GFR/1.73 sq M predicted among non-blacks MDRD (S/P/Bld) [Vol rate/Area] [place] Comment on above: Average GFR for 50-5 9 years old: 93 mL/min/1.73sq m Chronic Kidney Disease: <60 mL/min/1.73sq m Kidney failure: <15 mL/min/1.73sq m eGFR calculated using average adult body mass. Additional eGFR calculator available at: http://www.spotdock/multiple_crcl_2012.htm Stage 1: Some kidney damage normal GFR Stage 2: Mild kidney damage GFR 60-89 Stage 3: Moderate kidney damage GFR 30-59 Stage 4: Severe kidney damage GFR 15-29 Stage 5: Severe kidney damage GFR <15 ESRD - chronic treatment by dialysis or transplant Otheron 03-26-2020 Interpretation and review of laboratory results Abnormal [place] SPECIMEN REJECTIONon 021 Ordered Test CDP [place] Reason for Rejection Unable to perform testing: Specimen clotted. [place] Specimen source Nom (Unsp spec) .BLOOD [place] - NOT REPORTED [place] Urinalysis, reflex to micros copicon 03-26-2020 Bilirubin Urine Negative NEGATIVE [place] Color, UA YELLOW YELLOW [place] Glucose, Ur Negative NEGATIVE [place] Ketones Ql (U) Negative NEGATIVE [place] Leukocyte esterase Test strip Ql (U) Negative NEGATIVE [place] Nitrite, Urine Negative NEGATIVE [place] pH, UA 5.5 [place] Protein (U) [Mass/Vol] Negative NEGATIVE [place] Specific [place], UA 1.010 [place] Turbidity UA CLEAR CLEAR [place] Urinalysis Comments NOT REPORTED [place] Urine Hgb Negative NEGATIVE [place] Urobilinogen, Urine Normal Normal [place] CBC auto differentialon 08-07 Basophils (Bld) [#/Vol] 0.04 10*3/uL [place] Basophils/100 WBC (Bld) 1 % 0 - 2 % [place] Differential Type NOT REPORTED [place] Eosinophils (Bld) [#/Vol] 0.10 10*3/uL [place] Eosinophils/100 WBC (Bld) 1 % 1 - 4 % [place] Erythrocyte distribution width (RBC) [Ratio] 13.0 % 11.8 - 14.4 % [place] Hematocrit (Bld) [Volume fraction] 35.2 % Low 36.3 - 47.1 % [place] Hemoglobin (Bld) [Mass/Vol] 11.7 g/dL Low 11.9 - 15.1 g/dL [place] Immature granulocytes (Bld) [#/Vol] 10*3/uL [place] Immature granulocytes (Bld) [#/Vol] 0 % 0 [place] Interpretation and review of laboratory results Abnormal [place] Lymphocytes (Bld) [#/Vol] 1.87 10*3/uL [place] Lymphocytes/100 WBC (Bld) 22 % Low 24 - 43 % [place] MCH (RBC) [Entitic mass] 32.5 pg 25.2 - 33.5 pg [place] MCHC (RBC) [Mass/Vol] 33.2 g/dL 28.4 - 34.8 g/dL [place] MCV (RBC) [Entitic vol] 97.8 fL 82.6 - 102.9 fL [place] Monocytes (Bld) [#/Vol] 0.86 10*3/uL [place] Monocytes/100 WBC (Bld) 10 % 3 - 12 % [place] Platelet mean volume (Bld) [Entitic vol] 9.8 fL 8.1 - 13.5 fL [place] Platelets (Bld) [#/Vol] NOT REPORTED [place] Platelets (Bld) [#/Vol] 178 10*3/uL [place] RBC (Bld) [#/Vol] 3.60 10*6/uL Low 3.95 - 5.11 m/uL [place] RBC morphology finding Nom (Bld) NOT REPORTED [place] Segmented neutrophils/100 WBC (Bld) 66 % High 36 - 65 % [place] Segs Absolute 5.53 [place] WBC (Bld) [#/Vol] 0.0 10*3/uL 0.0 per 100 WBC [place] WBC (Bld) [#/Vol] 8.4 10*3/uL [place] WBC Morphology NOT REPORTED [place] Lipaseon 08-25-2019 Lipase [Catalytic activity/Vol] 42 U/L 13 - 60 U/L [place] CBC auto differentialon 08-07 Basophils (Bld) [#/Vol] 0.04 10*3/uL [place] Basophils/100 WBC (Bld) 1 % 0 - 2 % [place] Differential Type NOT REPORTED [place] Eosinophils (Bld) [#/Vol] 0.08 10*3/uL [place] Eosinophils/100 WBC (Bld) 1 % 1 - 4 % [place] Erythrocyte distribution width (RBC) [Ratio] 12.9 % 11.8 - 14.4 % [place] Hematocrit (Bld) [Volume fraction] 35.9 % Low 36.3 - 47.1 % [place] Hemoglobin (Bld) [Mass/Vol] 11.9 g/dL 11.9 - 15.1 g/dL [place] Immature granulocytes (Bld) [#/Vol] 0 % 0 [place] Immature granulocytes (Bld) [#/Vol] 0.03 10*3/uL [place] Interpretation and review of laboratory results Abnormal [place] Lymphocytes (Bld) [#/Vol] 1.79 10*3/uL [place] Lymphocytes/100 WBC (Bld) 22 % Low 24 - 43 % [place] MCH (RBC) [Entitic mass] 32.3 pg 25.2 - 33.5 pg [place] MCHC (RBC) [Mass/Vol] 33.1 g/dL 28.4 - 34.8 g/dL [place] MCV (RBC) [Entitic vol] 97.6 fL 82.6 - 102.9 fL [place] Monocytes (Bld) [#/Vol] 0.75 10*3/uL [place] Monocytes/100 WBC (Bld) 9 % 3 - 12 % [place] Platelet mean volume (Bld) [Entitic vol] 10.1 fL 8.1 - 13.5 fL [place] Platelets (Bld) [#/Vol] 176 10*3/uL [place] Platelets (Bld) [#/Vol] NOT REPORTED [place] RBC (Bld) [#/Vol] 3.68 10*6/uL Low 3.95 - 5.11 m/uL [place] RBC morphology finding Nom (Bld) NOT REPORTED [place] Segmented neutrophils/100 WBC (Bld) 67 % High 36 - 65 % [place] Segs Absolute 5.61 [place] WBC (Bld) [#/Vol] 0.0 10*3/uL 0.0 per 100 WBC [place] WBC (Bld) [#/Vol] 8.3 10*3/uL [place] WBC Morphology NOT REPORTED [place] Lipaseon 08-24-2019 Interpretation and review of laboratory results Abnormal [place] Lipase [Catalytic activity/Vol] 69 U/L High 13 - 60 U/L [place] CBC auto differentialon 08-07 Basophils (Bld) [#/Vol] 0.05 10*3/uL [place] Basophils/100 WBC (Bld) 1 % 0 - 2 % [place] Differential Type NOT REPORTED [place] Eosinophils (Bld) [#/Vol] 0.13 10*3/uL [place] Eosinophils/100 WBC (Bld) 2 % 1 - 4 % [place] Erythrocyte distribution width (RBC) [Ratio] 13.2 % 11.8 - 14.4 % [place] Hematocrit (Bld) [Volume fraction] 36.7 % 36.3 - 47.1 % [place] Hemoglobin (Bld) [Mass/Vol] 11.8 g/dL Low 11.9 - 15.1 g/dL [place] Immature granulocytes (Bld) [#/Vol] 0 % 0 [place] Immature granulocytes (Bld) [#/Vol] 10*3/uL [place] Interpretation and review of laboratory results Abnormal [place] Lymphocytes (Bld) [#/Vol] 2.39 10*3/uL [place] Lymphocytes/100 WBC (Bld) 28 % 24 - 43 % [place] MCH (RBC) [Entitic mass] 32.1 pg 25.2 - 33.5 pg [place] MCHC (RBC) [Mass/Vol] 32.2 g/dL 28.4 - 34.8 g/dL [place] MCV (RBC) [Entitic vol] 99.7 fL 82.6 - 102.9 fL [place] Monocytes (Bld) [#/Vol] 0.77 10*3/uL [place] Monocytes/100 WBC (Bld) 9 % 3 - 12 % [place] Platelet mean volume (Bld) [Entitic vol] 10.1 fL 8.1 - 13.5 fL [place] Platelets (Bld) [#/Vol] 174 10*3/uL [place] Platelets (Bld) [#/Vol] NOT REPORTED [place] RBC (Bld) [#/Vol] 3.68 10*6/uL Low 3.95 - 5.11 m/uL [place] RBC morphology finding Nom (Bld) NOT REPORTED [place] Segmented neutrophils/100 WBC (Bld) 60 % 36 - 65 % [place] Segs Absolute 5.22 [place] WBC (Bld) [#/Vol] 0.0 10*3/uL 0.0 per 100 WBC [place] WBC (Bld) [#/Vol] 8.6 10*3/uL [place] WBC Morphology NOT REPORTED [place] Comprehensive metabolic pane nimesh 08-23-2019 Albumin [Mass/Vol] 3.4 g/dL Low 3.5 - 5.2 g/dL [place] Albumin/Globulin [Mass ratio] 1.7 {ratio} [place] ALP [Catalytic activity/Vol] 102 U/L 35 - 104 U/L [place] ALT [Catalytic activity/Vol] 34 U/L High 5 - 33 U/L [place] Anion gap [Moles/Vol] 7 mmol/L Low 9 - 17 mmol/L [place] AST [Catalytic activity/Vol] 95 U/L High <32 [place] Bilirubin Ql (U) 0.46 mg/dL 0.3 - 1.2 mg/dL [place] Bun/Cre Ratio 11 [place] Calcium [Mass/Vol] 8.4 mg/dL Low 8.6 - 10. 4 mg/dL [place] Chloride [Moles/Vol] 109 mmol/L High 98 - 10 7 mmol/L [place] CO2 [Moles/Vol] 22 mmol/L 20 - 31 mmol/L [place] Creatinine [Mass/Vol] 0.66 mg/dL 0.5 - 0.9 mg/dL [place] GFR >60 >60 mL/min [place] GFR Non- >60 >60 mL/min [place] Glucose [Mass/Vol] 89 mg/dL 70 - 99 mg/dL [place] Potassium [Moles/Vol] 4.3 mmol/L 3.7 - 5.3 mmol/L [place] Protein [Mass/Vol] 5.4 g/dL Low 6.4 - 8.3 g/dL [place] Sodium [Moles/Vol] 138 mmol/L 135 - 144 mmol/L [place] Urea nitrogen [Mass/Vol] 7 mg/dL 6 - 20 mg/dL [place] Lipaseon 08-23-2019 Lipase [Catalytic activity/Vol] 96 U/L High 13 - 60 U/L [place] Metabolic Panelon 08-23-2019 GFR/1.73 sq M predicted among non-blacks MDRD (S/P/Bld) [Vol rate/Area] [place] Comment on above: Stage 1: Some [...] body mass. Additional eGFR calculator available at: http://www.MiniTime.Wellframe/multiple_crcl_2012.htm Otheron 08-23-2019 Interpretation and review of laboratory results Abnormal [place] CBC Auto Differentialon 08-07 Basophils (Bld) [#/Vol] 0.06 10*3/uL [place] Basophils/100 WBC (Bld) 1 % 0 - 2 % [place] Differential Type NOT REPORTED [place] Eosinophils (Bld) [#/Vol] 0.11 10*3/uL [place] Eosinophils/100 WBC (Bld) 1 % 1 - 4 % [place] Erythrocyte distribution width (RBC) [Ratio] 13.2 % 11.8 - 14.4 % [place] Hematocrit (Bld) [Volume fraction] 41.8 % 36.3 - 47.1 % [place] Hemoglobin (Bld) [Mass/Vol] 13.7 g/dL 11.9 - 15.1 g/dL [place] Immature granulocytes (Bld) [#/Vol] 0.03 10*3/uL [place] Immature granulocytes (Bld) [#/Vol] 0 % 0 [place] Interpretation and review of laboratory results Abnormal [place] Lymphocytes (Bld) [#/Vol] 2.23 10*3/uL [place] Lymphocytes/100 WBC (Bld) 24 % 24 - 43 % [place] MCH (RBC) [Entitic mass] 32.6 pg 25.2 - 33.5 pg [place] MCHC (RBC) [Mass/Vol] 32.8 g/dL 28.4 - 34.8 g/dL [place] MCV (RBC) [Entitic vol] 99.5 fL 82.6 - 102.9 fL [place] Monocytes (Bld) [#/Vol] 0.72 10*3/uL [place] Monocytes/100 WBC (Bld) 8 % 3 - 12 % [place] Platelet mean volume (Bld) [Entitic vol] 10.0 fL 8.1 - 13.5 fL [place] Platelets (Bld) [#/Vol] NOT REPORTED [place] Platelets (Bld) [#/Vol] 213 10*3/uL [place] RBC (Bld) [#/Vol] 4.20 10*6/uL 3.95 - 5.11 m/uL [place] RBC morphology finding Nom (Bld) NOT REPORTED [place] Segmented neutrophils/100 WBC (Bld) 66 % High 36 - 65 % [place] Segs Absolute 6.22 [place] WBC (Bld) [#/Vol] 0.0 10*3/uL 0.0 per 100 WBC [place] WBC (Bld) [#/Vol] 9.4 10*3/uL [place] WBC Morphology NOT REPORTED [place] Comprehensive Metabolic Pane nimesh 08-22-2019 Albumin [Mass/Vol] 4.1 g/dL 3.5 - 5.2 g/dL [place] Albumin/Globulin [Mass ratio] 1.6 {ratio} [place] ALP [Catalytic activity/Vol] 109 U/L High 35 - 104 U/L [place] ALT [Catalytic activity/Vol] 13 U/L 5 - 33 U/L [place] Anion gap [Moles/Vol] 9 mmol/L 9 - 17 mmol/L [place] AST [Catalytic activity/Vol] 22 U/L <32 [place] Bilirubin Ql (U) <0.10 Low 0.3 - 1.2 mg/dL [place] Bun/Cre Ratio 13 [place] Calcium [Mass/Vol] 9.2 mg/dL 8.6 - 10. 4 mg/dL [place] Chloride [Moles/Vol] 103 mmol/L 98 - 10 7 mmol/L [place] CO2 [Moles/Vol] 24 mmol/L 20 - 31 mmol/L [place] Creatinine [Mass/Vol] 0.63 mg/dL 0.5 - 0.9 mg/dL [place] GFR >60 >60 mL/min [place] GFR Non- >60 >60 mL/min [place] Glucose [Mass/Vol] 92 mg/dL 70 - 99 mg/dL [place] Interpretation and review of laboratory results Abnormal [place] Potassium [Moles/Vol] 3.8 mmol/L 3.7 - 5.3 mmol/L [place] Protein [Mass/Vol] 6.7 g/dL 6.4 - 8.3 g/dL [place] Sodium [Moles/Vol] 136 mmol/L 135 - 144 mmol/L [place] Urea nitrogen [Mass/Vol] 8 mg/dL 6 - 20 mg/dL [place] Lactic Acid, Plasmaon 2019 Lactate [Moles/Vol] 1.5 mmol/L 0.5 - 2. 2 mmol/L [place] Lactic Acid, Whole Blood NOT REPORTED 0.7 - 2.1 mmol/L [place] Lipaseon 08-22-2019 Interpretation and review of laboratory results Abnormal [place] Lipase [Catalytic activity/Vol] 255 U/L Critically high 13 - 60 U/L [place] Metabolic Panelon 08-22-2019 GFR/1.73 sq M predicted among non-blacks MDRD (S/P/Bld) [Vol rate/Area] [place] Comment on above: Average GFR for 50-5 9 years old: 93 mL/min/1.73sq m Chronic Kidney Disease: <60 mL/min/1.73sq m Kidney failure: <15 mL/min/1.73sq m eGFR calculated using average adult body mass. Additional eGFR calculator available at: http://www.MiniTime.Wellframe/multiple_crcl_2012.htm Stage 1: Some kidney damage normal GFR Stage 2: Mild kidney damage GFR 60-89 Stage 3: Moderate kidney damage GFR 30-59 Stage 4: Severe kidney damage GFR 15-29 Stage 5: Severe kidney damage GFR <15 ESRD - chronic treatment by dialysis or transplant Urinalysis with Microscopico n 08-22-2019 Amorphous, UA NOT REPORTED None [facility], [place] Bacteria, UA NOT REPORTED None [place] Bilirubin Urine Negative NEGATIVE [place] Casts UA NOT REPORTED /LPF [place] Color, UA YELLOW YELLOW [place] Crystals, UA NOT REPORTED None /HPF [place] Epithelial Cells UA 2 TO 5 [place] Glucose, Ur Negative NEGATIVE [place] Interpretation and review of laboratory results Abnormal [place] Ketones Ql (U) Negative NEGATIVE [place] Leukocyte esterase Test strip Ql (U) Negative NEGATIVE [place] Mucus, UA NOT REPORTED None [place] Nitrite, Urine Negative NEGATIVE [place] Other Observations UA NOT REPORTED NOT REQ. M [place], [place] pH, UA 6.0 [place] Protein (U) [Mass/Vol] Negative NEGATIVE [place] RBC (U) [#/Vol] [facility] [place] Renal Epithelial, UA NOT REPORTED 0 /HPF [place] Specific [place], UA <1.005 Low [place] Trichomonas, UA NOT REPORTED None [facility] [place] Turbidity UA CLEAR CLEAR [place] Urinalysis Comments NOT REPORTED [place] Urine Hgb Negative NEGATIVE [place] Urobilinogen, Urine Normal Normal [place] WBC, UA None [place] Yeast, UA NOT REPORTED None [place] - [place] CBC WITH AUTO DIFFERENTIALon 03-04-2018 Basophils Auto #/vol (Bld) 0.07 10*3/uL Invalid Interpretation Code [facility] Basophils/100 WBC Auto (Bld) 0.7 % Invalid Interpretation Code [facility] Eosinophils Auto #/vol (Bld) 0.09 10*3/uL Invalid Interpretation Code [facility] Eosinophils/100 WBC Auto (Bld) 0.9 % Invalid Interpretation Code [facility] Erythrocyte distribution width Auto Entitic volume (RBC) 12.8 % Invalid Interpretation Code 11.6 - 14.8 % [facility] Hematocrit Auto Volume Fraction (Bld) 45.0 % Invalid Interpretation Code 36 - 46 % [facility] Hemoglobin mass conc (Bld) 15.4 g/dL Invalid Interpretation Code 12 - 16 g/dL [facility] Immature granulocytes #/vol (Bld) 0.03 10*3/uL Invalid Interpretation Code [facility] Immature granulocytes/100 WBC (Bld) 0.30 % Invalid Interpretation Code [facility] Comment on above: The IG parameter is the percentage of metamyelocytes, myelocytes, and promyelocytes. Interpretation and review of laboratory results Abnormal Invalid Interpretation Code [facility] Lymphocytes Auto #/vol (Bld) 2.22 10*3/uL Invalid Interpretation Code [facility] Lymphocytes/100 WBC Auto (Bld) 21.0 % Invalid Interpretation Code [facility] MCH Auto Entitic mass (RBC) 33.6 pg Invalid Interpretation Code 26 - 34 pg [facility] MCHC Auto mass conc (RBC) 34.2 g/dL Invalid Interpretation Code 31 - 37 g/dL [facility] MCV Auto Entitic volume (RBC) 98.0 fL Invalid Interpretation Code 80 - 100 fL [facility] Monocytes Auto #/vol (Bld) 0.82 10*3/uL Invalid Interpretation Code [facility] Monocytes/100 WBC Auto (Bld) 7.8 % Invalid Interpretation Code [facility] Neutrophils Auto #/vol (Bld) 7.33 10*3/uL High [facility] Neutrophils/100 WBC Auto (Bld) 69.3 % Invalid Interpretation Code [facility] Nucleated RBC #/vol (Bld) 0.00 10*3/uL Invalid Interpretation Code [facility] Nucleated RBC/100 WBC Ratio (Bld) 0.0 % Invalid Interpretation Code [facility] Platelet mean volume Auto Entitic volume (Bld) 10.1 fL Invalid Interpretation Code 9 - 15.5 fL [facility] Platelets Auto #/vol (Bld) 254 10*3/uL Invalid Interpretation Code [facility] RBC Auto #/vol (Bld) 4.59 10*6/uL Invalid Interpretation Code [facility] WBC Auto #/vol (Bld) 10.56 10*3/uL Invalid Interpretation Code [facility] Chem 7on 03-04-2018 Anion gap 3 molar conc 15 mmol/L Invalid Interpretation Code 10 - 20 mmol/L [facility] Chloride molar conc 103 mmol/L Invalid Interpretation Code 98 - 108 mmol/L [facility] Creatinine mass conc 0.85 mg/dL Invalid Interpretation Code 0.4 - 1.1 mg/dL [facility] GFR/1.73 sq M predicted among non-blacks MDRD vol rate/area (S/P/Bld) The eGFR should be used for monitoring renal function only and not for medication dosing. Invalid Interpretation Code [facility] GFR/1.73 sq M.predicted CKD-EPI vol rate/area (S/P/Bld) 81 Invalid Interpretation Code >=60 mL/min/1.7 3 m2 [facility] Glucose mass conc 92 mg/dL Invalid Interpretation Code 65 - 99 mg/dL [facility] HCO3 molar conc 25 mmol/L Invalid Interpretation Code 21 - 32 mmol/L [facility] Potassium molar conc 4.4 mmol/L Invalid Interpretation Code 3.5 - 5.1 mmol/L [facility] Sodium molar conc 139 mmol/L Invalid Interpretation Code 135 - 145 mmol/L [facility] Urea nitrogen mass conc 7 mg/dL Low 8 - 25 mg/dL [facility] Urea nitrogen/Creatinine mass ratio 8.2 mg/mg Low [facility] Hepatic Function Panel (LFT) on 03-04-2018 Albumin mass conc 4.5 g/dL Invalid Interpretation Code 3.2 - 5.2 g/dL [facility] ALP enzyme act/vol 97 U/L Invalid Interpretation Code 40 - 150 U/L [facility] ALT enzyme act/vol 9 U/L Invalid Interpretation Code 0 - 40 U/L [facility] AST enzyme act/vol 15 U/L Invalid Interpretation Code 0 - 45 U/L [facility] Bilirubin mass conc mg/dL Invalid Interpretation Code 0 - 1.3 mg/dL [facility] Bilirubin.conjugated mass conc mg/dL Invalid Interpretation Code 0 - 0.4 mg/dL [facility] Interpretation and review of laboratory results Normal Invalid Interpretation Code [facility] Protein mass conc 7.2 g/dL Invalid Interpretation Code 6 - 8 g/dL [facility] Lipaseon 03-04-2018 Lipase enzyme act/vol 179 U/L High 15 - 6 5 U/L [facility] Otheron 03-04-2018 Extra Tube Hold for add-ons. Invalid Interpretation Code [facility] Comment on above: Auto resulted. Interpretation and review of laboratory results Abnormal Invalid Interpretation Code [facility] URINALYSISon 03-04-2018 Bacteria Auto Ql (U) Rare Abnormal None Se en /hpf [facility] Bilirubin Ql (U) Negative Invalid Interpretation Code Negative [facility] Clarity Refractometry automated Nom (U) Clear Invalid Interpretation Code Clear [facility] Color Auto Nom (U) Colorless Invalid Interpretation Code Colorless, Yellow [facility] Epithelial cells.squamous Auto #/area (Urine sed) 1 Invalid Interpretation Code [facility] Glucose Automated test strip mass conc (U) Negative Invalid Interpretation Code Negative mg/dL [facility] Hemoglobin Automated test strip Ql (U) Negative Invalid Interpretation Code Negative [facility] Interpretation and review of laboratory results Abnormal Invalid Interpretation Code [facility] Ketones mass conc (U) Negative Invalid Interpretation Code Negative mg/dL [facility] Leukocyte esterase Automated test strip Ql (U) Negative Invalid Interpretation Code Negative [facility] Nitrite Automated test strip Ql (U) Negative Invalid Interpretation Code Negative [facility] pH Test strip (U) 7.0 [pH] Invalid Interpretation Code [facility] Protein mass conc (U) Negative Invalid Interpretation Code Negative mg/dL [facility] RBC Auto #/area (Urine sed) 2 Invalid Interpretation Code [facility] Specific gravity Automated test strip Relative Density (U) 1.004 Low [facility] Urobilinogen Test strip Qn (U) <2.0 Invalid Interpretation Code <2.0 mg/dL [facility] WBC Auto #/area (Urine sed) <1 Invalid Interpretation Code [facility] Microscopic examinat ion is performed on all urinalysis samples and only positive findings are reported. The test for blood on the chemical analytic portion of urinalysis may also be positive due to hemoglobinuria and myoglobinuria and if red blood cells are present they are quantified by microscopic examination. Invalid Interpretation Code [facility] BMPon 08-24-2017 Anion gap 18 mmol/L Invalid Interpretation Code 10 - 20 mmol/L [facility] Bicarbonate (HCO3) 27 mmol/L Invalid Interpretation Code 21 - 32 mmol/L [facility] BUN/Creatinine Ratio 10.1 mg/mg Invalid Interpretation Code 10.0 - 20.0 [facility] Calcium 10.6 mg/dL High 8.4 - 10.2 mg/dL [facility] Chloride 101 mmol/L Invalid Interpretation Code 98 - 108 mmol/L [facility] Creatinine 0.69 mg/dL Invalid Interpretation Code 0.4 - 1.1 mg/dL [facility] eGFR (non-black) 103 mL/min/{1.73_m2} Invalid Interpretation Code >=60 [facility] eGFR (non-black) The eGFR should be u sed for monitoring renal function only and not for medication dosing. Invalid Interpretation Code [facility] Glucose mass conc 105 mg/dL High 65 - 99 mg/dL [facility] Interpretation and review of laboratory results Abnormal Invalid Interpretation Code [facility] Potassium molar conc 4.1 mmol/L Invalid Interpretation Code 3.5 - 5.1 mmol/L [facility] Sodium 142 mmol/L Invalid Interpretation Code 135 - 145 mmol/L [facility] Urea nitrogen 7 mg/dL Low 8 - 25 mg/dL [facility] CBC Auto Differentialon 08-07 Basophils Auto #/vol (Bld) 0.08 K/mcL Invalid Interpretation Code 0.00 - 0.30 [facility] Basophils/100 WBC Auto (Bld) 0.6 % Invalid Interpretation Code [facility] Eosinophils 0.05 K/mcL Invalid Interpretation Code 0.00 - 0.50 [facility] Eosinophils/100 leukocytes 0.4 % Invalid Interpretation Code [facility] Erythrocyte distribution width Auto Entitic volume (RBC) 12.2 % Invalid Interpretation Code 11.6 - 14.8 % [facility] Erythrocytes (RBC) 4.60 M/mcL Invalid Interpretation Code 4.00 - 5.20 [facility] Hematocrit (HCT) 43.4 % Invalid Interpretation Code 36 - 46 % [facility] Hemoglobin mass conc (Bld) 15.2 g/dL Invalid Interpretation Code 12 - 16 g/dL [facility] Immature granulocytes #/vol (Bld) 0.05 K/mcL Invalid Interpretation Code 0.00 - 0.30 [facility] Immature granulocytes/100 WBC (Bld) 0.40 % Invalid Interpretation Code [facility] Comment on above: The IG parameter is the percentage of metamyelocytes, myelocytes, and promyelocytes. Lymphocytes 2.40 K/mcL Invalid Interpretation Code 0.90 - 4.00 [facility] Lymphocytes/100 leukocytes 18.1 % Invalid Interpretation Code [facility] MCH 33.0 pg Invalid Interpretation Code 26 - 34 pg [facility] MCHC mass conc (RBC) 35.0 g/dL Invalid Interpretation Code 31 - 37 g/dL [facility] MCV 94.3 fL Invalid Interpretation Code 80 - 100 fL [facility] Monocytes 0.85 K/mcL Invalid Interpretation Code 0.30 - 0.90 [facility] Monocytes/100 leukocytes 6.4 % Invalid Interpretation Code [facility] Neutrophils 9.81 K/mcL High 1.70 - 7.00 [facility] Neutrophils/100 WBC Auto (Bld) 74.1 % Invalid Interpretation Code [facility] Nucleated erythrocytes 0.00 K/mcL Invalid Interpretation Code 0.00 - 0.00 [facility] Nucleated erythrocytes/100 erythrocytes 0.0 % Invalid Interpretation Code [facility] Platelet mean volume (PMV) 10.0 fL Invalid Interpretation Code 9 - 15.5 fL [facility] Platelets 242 K/mcL Invalid Interpretation Code 150 - 400 [facility] WBC (Leukocytes) 13.24 K/mcL High 4.50 - 11.00 [facility] CBC w/ Diffon 08-24-2017 Creatinine The following orders were created for panel order CBC w/ Diff. Procedure Abnormality Status --------- ------ CBC Auto Differential[[id number]] Abnormal Final result Please view results for these tests on the individual orders. Invalid Interpretation Code [facility] CT ABDOMEN PELVIS WITH IV [...] and demonstrated a prominent signal loss on [id number] images on MRI performed 09/06/2014, compatible with [...] on ThuAug 24, 2017 4:03:34 PM EDT [facility] Comment on above: Order Comment: Reaso n for exam?:abd painInjury/Trauma or Illness?:Illness/OtherHow long have you had these symptoms (acute/chronic)?:ChronicType of Exam?:Subsequent/Follow-upAdditional signs and symptoms?:chronic pancreatitis CT Abdomen Pelvis With IV Co ntrast Onlyon 08-24-2017 CT Abdomen Pelvis With IV Contrast Only Interface[facility] 4:06 PM EDT EXAMINATION: [...] and demonstrated a prominent signal loss on [id number] images on MRI performed 09/06/2014, compatible with [...] probably remain. 5. Small left adrenal adenoma. [email or web address] Workstation ID: [id number] Invalid Interpretation Code [facility] CT Abdomen Pelvis With IV Contrast [...] and demonstrated a prominent signal loss on [id number] images on MRI performed 09/06/2014, compatible with [...] suspicious focal osseous lesions. Invalid Interpretation Code [facility] CT Abdomen Pelvis With IV Contrast [...] probably remain. 5. Small left adrenal adenoma. [email or web address] Workstation ID: [id number] Invalid Interpretation Code [facility] Hepatic Function Panel (LFT) on 08-24-2017 Alanine aminotransferase (ALT) 14 U/L Invalid Interpretation Code 0 - 40 U/L [facility] Albumin 4.7 g/dL Invalid Interpretation Code 3.2 - 5.2 g/dL [facility] Alkaline phosphatase (ALP) 91 U/L Invalid Interpretation Code 40 - 150 U/L [facility] Aspartate aminotransferase (AST) 17 U/L Invalid Interpretation Code 0 - 45 U/L [facility] Bilirubin (conjugated) mg/dL Invalid Interpretation Code 0 - 0.4 mg/dL [facility] Bilirubin (total) mg/dL Invalid Interpretation Code 0 - 1.3 mg/dL [facility] Interpretation and review of laboratory results Normal Invalid Interpretation Code [facility] Protein 7.4 g/dL Invalid Interpretation Code 6 - 8 g/dL [facility] Lactic Acid, Plasmaon 2017 Lactate 1.0 mmol/L Invalid Interpretation Code 0.6 - 2 mmol/L [facility] Light Blue Topon 08-24-2017 Extra Tube Hold for add-ons. Invalid Interpretation Code [facility] Comment on above: Auto resulted. Lipaseon 08-24-2017 Lipase 51 U/L Invalid Interpretation Code 15 - 65 U/L [facility] [place] 08-24-2017 [place] Invalid Interpretation Code [facility] [place] Drawon 08-24-2017 Creatinine The following orders were created for panel order [place] Draw. Procedure Abnormality Status --------- ------ Gold Top[[id number]] Final result [place] Top[[id number]] Final result [place][[id number]] Final result Please view results for these tests on the individual orders. Invalid Interpretation Code [facility] Urinalysison 08-24-2017 Bilirubin Ql (U) Negative Invalid Interpretation Code Negative [facility] Blood, Urine Negative Invalid Interpretation Code Negative [facility] Interpretation and review of laboratory results Abnormal Invalid Interpretation Code [facility] Nitrite, Urine Negative Invalid Interpretation Code Negative [facility] Squamous Epithelial 5 /hpf High 0 - 4 [facility] Transitional Epithelial <1 Invalid Interpretation Code 0 - 1 /hpf [facility] Urine, bacteria in sediment Rare Abnormal None Seen /hpf [facility] Urine, clarity Hazy Abnormal Clear [facility] Urine, color Yellow Invalid Interpretation Code Colorless, Yellow [facility] Urine, erythrocytes 1 /hpf Invalid Interpretation Code 0 - 3 [facility] Urine, glucose presence Negative Invalid Interpretation Code Negative mg/dL [facility] Urine, ketones presence Negative Invalid Interpretation Code Negative mg/dL [facility] Urine, leukocyte esterase presence Negative Invalid Interpretation Code Negative [facility] Urine, pH 7.0 [pH] Invalid Interpretation Code 5.0 - 7.0 [facility] Urine, protein Negative Invalid Interpretation Code Negative mg/dL [facility] Urine, specific gravity 1.006 1 Invalid Interpretation Code 1.005 - 1.025 [facility] Urine, urobilinogen <2.0 Invalid Interpretation Code <2.0 mg/dL [facility] WBCs, Urine 1 /hpf Invalid Interpretation Code 0 - 5 [facility] Urinalysis Microscopic examinat ion is performed on all urinalysis samples and only positive findings are reported. The test for blood on the chemical analytic portion of urinalysis may also be positive due to hemoglobinuria and myoglobinuria and if red blood cells are present they are quantified by microscopic examination. Invalid Interpretation Code [facility] BMPon 06-09-2017 Anion gap 18 mmol/L Invalid Interpretation Code 10 - 20 mmol/L [facility] Bicarbonate (HCO3) 21 mmol/L Invalid Interpretation Code 21 - 32 mmol/L [facility] BUN/Creatinine Ratio 11.0 mg/mg Invalid Interpretation Code 10.0 - 20.0 [facility] Calcium 10.2 mg/dL Invalid Interpretation Code 8.4 - 10.2 mg/dL [facility] Chloride 102 mmol/L Invalid Interpretation Code 98 - 108 mmol/L [facility] Creatinine 0.73 mg/dL Invalid Interpretation Code 0.4 - 1.1 mg/dL [facility] eGFR (non-black) The eGFR should be u sed for monitoring renal function only and not for medication dosing. Invalid Interpretation Code [facility] eGFR (non-black) 98 mL/min/{1.73_m2} Invalid Interpretation Code >=60 [facility] Glucose 80 mg/dL Invalid Interpretation Code 65 - 99 mg/dL [facility] Potassium 4.3 mmol/L Invalid Interpretation Code 3.5 - 5.1 mmol/L [facility] Sodium 137 mmol/L Invalid Interpretation Code 135 - 145 mmol/L [facility] Urea nitrogen 8 mg/dL Invalid Interpretation Code 8 - 25 mg/dL [facility] CBC Auto Differentialon Basophils 0.07 K/mcL Invalid Interpretation Code 0.00 - 0.30 [facility] Basophils/100 leukocytes 0.7 % Invalid Interpretation Code [facility] Eosinophils 0.10 K/mcL Invalid Interpretation Code 0.00 - 0.50 [facility] Eosinophils/100 leukocytes 1.0 % Invalid Interpretation Code [facility] Erythrocytes (RBC) 4.75 M/mcL Invalid Interpretation Code 4.00 - 5.20 [facility] Erythrocytes (RBC) 0.00 K/mcL Invalid Interpretation Code 0.00 - 0.00 [facility] Hematocrit (HCT) 46.1 % High 36 - 46 % [facility] Hemoglobin (HGB) 16.1 g/dL High 12 - 16 g/dL [facility] IG Absolute 0.02 K/mcL Invalid Interpretation Code 0.00 - 0.30 [facility] IG Percent 0.20 % Invalid Interpretation Code [facility] Lymphocytes 1.75 K/mcL Invalid Interpretation Code 0.90 - 4.00 [facility] Lymphocytes/100 leukocytes 17.9 % Invalid Interpretation Code [facility] MCH 33.9 pg Invalid Interpretation Code 26 - 34 pg [facility] MCHC 34.9 g/dL Invalid Interpretation Code 31 - 37 g/dL [facility] MCV 97.1 fL Invalid Interpretation Code 80 - 100 fL [facility] Monocytes 0.88 K/mcL Invalid Interpretation Code 0.30 - 0.90 [facility] Monocytes/100 leukocytes 9.0 % Invalid Interpretation Code [facility] Neutrophils 6.98 K/mcL Invalid Interpretation Code 1.70 - 7.00 [facility] Neutrophils/100 leukocytes 71.2 % Invalid Interpretation Code [facility] Nucleated erythrocytes/100 erythrocytes 0.0 % Invalid Interpretation Code [facility] Platelet mean volume (PMV) 10.9 fL Invalid Interpretation Code 9 - 15.5 fL [facility] Platelets 223 K/mcL Invalid Interpretation Code 150 - 400 [facility] RDW-CA 12.8 % Invalid Interpretation Code 11.6 - 14.8 % [facility] WBC (Leukocytes) 9.80 K/mcL Invalid Interpretation Code 4.50 - 11.00 [facility] Interpretation and review of laboratory results Abnormal Invalid Interpretation Code [facility] CBC w/ Diffon 06-09-2017 Creatinine The following orders were created for panel order CBC w/ Diff. Procedure Abnormality Status --------- ------ CBC Auto Differential[[id number]] Abnormal Final result Please view results for these tests on the individual orders. Invalid Interpretation Code [facility] Hepatic Function Panel (LFT) on 06-09-2017 Alanine aminotransferase (ALT) 10 U/L Invalid Interpretation Code 0 - 40 U/L [facility] Albumin 4.4 g/dL Invalid Interpretation Code 3.2 - 5.2 g/dL [facility] Alkaline phosphatase (ALP) 89 U/L Invalid Interpretation Code 40 - 150 U/L [facility] Aspartate aminotransferase (AST) 20 U/L Invalid Interpretation Code 0 - 45 U/L [facility] Bilirubin (conjugated) mg/dL Invalid Interpretation Code 0 - 0.4 mg/dL [facility] Bilirubin (total) mg/dL Invalid Interpretation Code 0 - 1.3 mg/dL [facility] Interpretation and review of laboratory results Normal Invalid Interpretation Code [facility] Protein 7.3 g/dL Invalid Interpretation Code 6 - 8 g/dL [facility] Lipaseon 06-09-2017 Lipase 50 U/L Invalid Interpretation Code 15 - 65 U/L [facility] [place] Draw[place] 06-09-2017 Creatinine The following orders were created for panel order [place] Draw. Procedure Abnormality Status --------- ------ Urine Container[[id number]] Final result Please view results for these tests on the individual orders. Invalid Interpretation Code [facility] Urinalysison 06-09-2017 Bilirubin, Urine Negative Invalid Interpretation Code Negative [facility] Blood, Urine Negative Invalid Interpretation Code Negative [facility] Calcium Many Abnormal None Seen /hpf [facility] Mucus, Urine Rare Invalid Interpretation Code None Seen, Rare /lpf [facility] Nitrite, Urine Negative Invalid Interpretation Code Negative [facility] RBCs, Urine 1 /hpf Invalid Interpretation Code 0 - 3 [facility] Squamous Epithelial 4 /hpf Invalid Interpretation Code 0 - 4 [facility] Urine, bacteria in sediment None Seen Invalid Interpretation Code None Seen /hpf [facility] Urine, clarity Cloudy Abnormal Clear [facility] Urine, color Yellow Invalid Interpretation Code Colorless, Yellow [facility] Urine, glucose presence Negative Invalid Interpretation Code Negative mg/dL [facility] Urine, ketones presence Trace Abnormal Negative mg/dL [facility] Urine, leukocyte esterase presence Negative Invalid Interpretation Code Negative [facility] Urine, pH 5.0 [pH] Invalid Interpretation Code 5.0 - 7.0 [facility] Urine, protein Negative Invalid Interpretation Code Negative mg/dL [facility] Urine, specific gravity 1.024 1 Invalid Interpretation Code 1.005 - 1.025 [facility] Urine, urobilinogen 2.0 mg/dL Abnormal <2.0 [facility] WBCs, Urine 1 /hpf Invalid Interpretation Code 0 - 5 [facility] Urinalysis Microscopic examinat ion is performed on all urinalysis samples and only positive findings are reported. The test for blood on the chemical analytic portion of urinalysis may also be positive due to hemoglobinuria and myoglobinuria and if red blood cells are present they are quantified by microscopic examination. Invalid Interpretation Code [facility] Urine Containeron 06-09-2017 Urine Container Invalid Interpretation Code [facility] CBCon 05-15-2017 Erythrocytes (RBC) 3.76 M/mcL Low 4.00 - 5.20 [facility] Erythrocytes (RBC) 0.00 K/mcL Invalid Interpretation Code 0.00 - 0.00 [facility] Hematocrit (HCT) 37.1 % Invalid Interpretation Code 36 - 46 % [facility] Hemoglobin (HGB) 12.4 g/dL Invalid Interpretation Code 12 - 16 g/dL [facility] MCH 33.0 pg Invalid Interpretation Code 26 - 34 pg [facility] MCHC 33.4 g/dL Invalid Interpretation Code 31 - 37 g/dL [facility] MCV 98.7 fL Invalid Interpretation Code 80 - 100 fL [facility] Nucleated erythrocytes/100 erythrocytes 0.0 % Invalid Interpretation Code [facility] Platelet mean volume (PMV) 9.9 fL Invalid Interpretation Code 9 - 15.5 fL [facility] Platelets 197 K/mcL Invalid Interpretation Code 150 - 400 [facility] RDW-CA 12.6 % Invalid Interpretation Code 11.6 - 14.8 % [facility] WBC (Leukocytes) 7.55 K/mcL Invalid Interpretation Code 4.50 - 11.00 [facility] Comprehensive Metabolic Pane nimesh 05-15-2017 Alanine aminotransferase (ALT) 9 U/L Invalid Interpretation Code 0 - 40 U/L [facility] Albumin 3.3 g/dL Invalid Interpretation Code 3.2 - 5.2 g/dL [facility] Alkaline phosphatase (ALP) 73 U/L Invalid Interpretation Code 40 - 150 U/L [facility] Anion gap 15 mmol/L Invalid Interpretation Code 10 - 20 mmol/L [facility] Aspartate aminotransferase (AST) 13 U/L Invalid Interpretation Code 0 - 45 U/L [facility] Bicarbonate (HCO3) 23 mmol/L Invalid Interpretation Code 21 - 32 mmol/L [facility] Bilirubin (total) 0.2 mg/dL Invalid Interpretation Code 0 - 1.3 mg/dL [facility] BUN/Creatinine Ratio 9.4 mg/mg Low 10.0 - 20.0 [facility] Calcium 8.4 mg/dL Invalid Interpretation Code 8.4 - 10.2 mg/dL [facility] Chloride 108 mmol/L Invalid Interpretation Code 98 - 108 mmol/L [facility] Creatinine 0.64 mg/dL Invalid Interpretation Code 0.4 - 1.1 mg/dL [facility] eGFR (non-black) The eGFR should be u sed for monitoring renal function only and not for medication dosing. Invalid Interpretation Code [facility] eGFR (non-black) 107 mL/min/{1.73_m2} Invalid Interpretation Code >=60 [facility] Glucose 91 mg/dL Invalid Interpretation Code 65 - 99 mg/dL [facility] Potassium 4.0 mmol/L Invalid Interpretation Code 3.5 - 5.1 mmol/L [facility] Protein 5.3 g/dL Low 6 - 8 g/dL [facility] Sodium 142 mmol/L Invalid Interpretation Code 135 - 145 mmol/L [facility] Urea nitrogen 6 mg/dL Low 8 - 25 mg/dL [facility] Lipaseon 05-15-2017 Interpretation and review of laboratory results Normal Invalid Interpretation Code [facility] Lipase 31 U/L Invalid Interpretation Code 15 - 65 U/L [facility] Lipid Panelon 05-15-2017 Cholesterol 193 mg/dL Invalid Interpretation Code 100 - 199 mg/dL [facility] Cholesterol to HDL Ratio 7.1 {ratio} Invalid Interpretation Code [facility] HDL Cholesterol 27 mg/dL Low 40 - 59 mg/dL [facility] HDL Cholesterol 166 mg/dL Invalid Interpretation Code [facility] Interpretation and review of laboratory results Abnormal Invalid Interpretation Code [facility] LDL Cholesterol 108 mg/dL Invalid Interpretation Code 10 - 130 mg/dL [facility] Triglyceride 291 mg/dL High 30 - 150 mg/dL [facility] BMPon 05-14-2017 Anion gap 18 mmol/L Invalid Interpretation Code 10 - 20 mmol/L [facility] Bicarbonate (HCO3) 25 mmol/L Invalid Interpretation Code 21 - 32 mmol/L [facility] BUN/Creatinine Ratio 11.8 mg/mg Invalid Interpretation Code 10.0 - 20.0 [facility] Calcium 10.7 mg/dL High 8.4 - 10.2 mg/dL [facility] Chloride 102 mmol/L Invalid Interpretation Code 98 - 108 mmol/L [facility] Creatinine 0.68 mg/dL Invalid Interpretation Code 0.4 - 1.1 mg/dL [facility] eGFR (non-black) The eGFR should be u sed for monitoring renal function only and not for medication dosing. Invalid Interpretation Code [facility] eGFR (non-black) 105 mL/min/{1.73_m2} Invalid Interpretation Code >=60 [facility] Glucose 86 mg/dL Invalid Interpretation Code 65 - 99 mg/dL [facility] Potassium 4.0 mmol/L Invalid Interpretation Code 3.5 - 5.1 mmol/L [facility] Sodium 141 mmol/L Invalid Interpretation Code 135 - 145 mmol/L [facility] Urea nitrogen 8 mg/dL Invalid Interpretation Code 8 - 25 mg/dL [facility] CBC Auto Differentialon Basophils 0.09 K/mcL Invalid Interpretation Code 0.00 - 0.30 [facility] Basophils/100 leukocytes 0.8 % Invalid Interpretation Code [facility] Eosinophils 0.08 K/mcL Invalid Interpretation Code 0.00 - 0.50 [facility] Eosinophils/100 leukocytes 0.7 % Invalid Interpretation Code [facility] Erythrocytes (RBC) 0.00 K/mcL Invalid Interpretation Code 0.00 - 0.00 [facility] Erythrocytes (RBC) 4.96 M/mcL Invalid Interpretation Code 4.00 - 5.20 [facility] Hematocrit (HCT) 48.5 % High 36 - 46 % [facility] Hemoglobin (HGB) 16.6 g/dL High 12 - 16 g/dL [facility] IG Absolute 0.04 K/mcL Invalid Interpretation Code 0.00 - 0.30 [facility] IG Percent 0.40 % Invalid Interpretation Code [facility] Interpretation and review of laboratory results Abnormal Invalid Interpretation Code [facility] Lymphocytes 1.89 K/mcL Invalid Interpretation Code 0.90 - 4.00 [facility] Lymphocytes/100 leukocytes 17.7 % Invalid Interpretation Code [facility] MCH 33.5 pg Invalid Interpretation Code 26 - 34 pg [facility] MCHC 34.2 g/dL Invalid Interpretation Code 31 - 37 g/dL [facility] MCV 97.8 fL Invalid Interpretation Code 80 - 100 fL [facility] Monocytes 0.74 K/mcL Invalid Interpretation Code 0.30 - 0.90 [facility] Monocytes/100 leukocytes 6.9 % Invalid Interpretation Code [facility] Neutrophils 7.86 K/mcL High 1.70 - 7.00 [facility] Neutrophils/100 leukocytes 73.5 % Invalid Interpretation Code [facility] Nucleated erythrocytes/100 erythrocytes 0.0 % Invalid Interpretation Code [facility] Platelet mean volume (PMV) 9.8 fL Invalid Interpretation Code 9 - 15.5 fL [facility] Platelets 275 K/mcL Invalid Interpretation Code 150 - 400 [facility] RDW-CA 12.8 % Invalid Interpretation Code 11.6 - 14.8 % [facility] WBC (Leukocytes) 10.70 K/mcL Invalid Interpretation Code 4.50 - 11.00 [facility] CBC w/ Diffon 05-14-2017 Creatinine The following orders were created for panel order CBC w/ Diff. Procedure Abnormality Status --------- ------ CBC Auto Differential[[id number]] Abnormal Final result Please view results for these tests on the individual orders. Invalid Interpretation Code [facility] CT ABDOMEN PELVIS WITH IV [...] appendix in the left lower pelvis.Workstation ID: [id number] by: SARAH ANN on ThuMay 14, 2017 4:08:10 PM ESTTranscribed by: SARAH ANN on ThuMay 14, 2017 4:08:10 PM ESTFinalized by: SARAH ANN on ThuMay 14, 2017 4:08:10 PM EST Normal [facility] Comment on above: Order Comment: [...] at L1-L2 and L4-L5. Invalid Interpretation Code [facility] CT Abdomen Pelvis With IV Contrast Only Interface, Rad In [place] [facility] - 05/14/2017 4:10 PM EST EXAMINATION: CT [...] in the left lower pelvis. Workstation ID: [id number] Invalid Interpretation Code [facility] Abdomen Pelvis With IV Contrast [...] in the left lower pelvis. Workstation ID: [id number] Invalid Interpretation Code [facility] [place] 05-14-2017 Extra Tube Hold for add-ons. Invalid Interpretation Code [facility] Hepatic Function Panel (LFT) on 05-14-2017 Alanine aminotransferase (ALT) 13 U/L Invalid Interpretation Code 0 - 40 U/L [facility] Albumin 4.8 g/dL Invalid Interpretation Code 3.2 - 5.2 g/dL [facility] Alkaline phosphatase (ALP) 102 U/L Invalid Interpretation Code 40 - 150 U/L [facility] Aspartate aminotransferase (AST) 20 U/L Invalid Interpretation Code 0 - 45 U/L [facility] Bilirubin (conjugated) mg/dL Invalid Interpretation Code 0 - 0.4 mg/dL [facility] Bilirubin (total) 0.2 mg/dL Invalid Interpretation Code 0 - 1.3 mg/dL [facility] Interpretation and review of laboratory results Normal Invalid Interpretation Code [facility] Protein 7.9 g/dL Invalid Interpretation Code 6 - 8 g/dL [facility] Lipaseon 05-14-2017 Lipase 137 U/L High 15 - 65 U/L [facility] [place] 05-14-2017 [place] Invalid Interpretation Code [facility] [place] 05-14-2017 Creatinine The following orders were created for panel order [place] Draw. Procedure Abnormality Status --------- ------ Gold Top[[id number]] Final result Light Blue Top[[id number]] Final result [place][[id number]] Final result [place][[id number]] Final result Please view results for these tests on the individual orders. Invalid Interpretation Code [facility] Urinalysison 05-14-2017 Bilirubin, Urine Negative Invalid Interpretation Code Negative [facility] Blood, Urine Negative Invalid Interpretation Code Negative [facility] Interpretation and review of laboratory results Abnormal Invalid Interpretation Code [facility] Mucus, Urine Rare Invalid Interpretation Code None Seen, Rare /lpf [facility] Nitrite, Urine Negative Invalid Interpretation Code Negative [facility] RBCs, Urine 2 /hpf Invalid Interpretation Code 0 - 3 [facility] Squamous Epithelial 3 /hpf Invalid Interpretation Code 0 - 4 [facility] Urine, bacteria in sediment Rare Abnormal None Seen /hpf [facility] Urine, clarity Clear Invalid Interpretation Code Clear [facility] Urine, color Yellow Invalid Interpretation Code Colorless, Yellow [facility] Urine, glucose presence Negative Invalid Interpretation Code Negative mg/dL [facility] Urine, ketones presence Negative Invalid Interpretation Code Negative mg/dL [facility] Urine, leukocyte esterase presence Negative Invalid Interpretation Code Negative [facility] Urine, pH 5.0 [pH] Invalid Interpretation Code 5.0 - 7.0 [facility] Urine, protein Negative Invalid Interpretation Code Negative mg/dL [facility] Urine, specific gravity 1.006 1 Invalid Interpretation Code 1.005 - 1.025 [facility] Urine, urobilinogen <2.0 Invalid Interpretation Code <2.0 mg/dL [facility] WBCs, Urine 1 /hpf Invalid Interpretation Code 0 - 5 [facility] Urinalysis Microscopic examinat ion is performed on all urinalysis samples and only positive findings are reported. The test for blood on the chemical analytic portion of urinalysis may also be positive due to hemoglobinuria and myoglobinuria and if red blood cells are present they are quantified by microscopic examination. Invalid Interpretation Code [facility] Vital Signs Date Time Vital Sign Value Performing Clinician Facility 11-17-2024 16:30-0400 Diastolic blood pressure 72 mm[Hg] Josse Romo MD Work Phone: [facility] 11-17-2024 16:30-0400 Heart rate 78 /min Josse Romo MD Work Phone: [facility] 11-17-2024 16:30-0400 Respiratory rate 16 /min Josse Romo MD Work Phone: [facility] 11-17-2024 16:30-0400 SaO2% (BldA) [Mass fraction] 98 % Josse Romo MD Work Phone: [facility] 11-17-2024 16:30-0400 Systolic blood pressure 122 mm[Hg] Josse Romo MD Work Phone: [facility] 11-17-2024 15:21-0400 Body temperature 97.9 [degF] Josse Romo MD Work Phone: [facility] 11-17-2024 14:13-0400 Body height 157.5 cm Josse Romo MD Work Phone: [facility] 11-17-2024 14:13-0400 Body mass index (BMI) [Ratio] 21.95 kg/m2 Josse Romo MD Work Phone: [facility] 11-17-2024 14:13-0400 Body weight 54.43 kg Josse Romo MD Work Phone: [facility] 11-09-2024 07:01-0400 Body temperature 98.29 [degF] Raji Gilliam MD Work Phone: [facility] 11-09-2024 07:01-0400 Diastolic blood pressure 84 mm[Hg] Raji Gilliam MD Work Phone: [facility] 11-09-2024 07:01-0400 Heart rate 89 /min Raji Gilliam MD Work Phone: [facility] 11-09-2024 07:01-0400 Respiratory rate 16 /min Raji Gilliam MD Work Phone: [facility] 11-09-2024 07:01-0400 SaO2% (BldA) [Mass fraction] 97 % Raji Gilliam MD Work Phone: [facility] 11-09-2024 07:01-0400 Systolic blood pressure 131 mm[Hg] Raji Gilliam MD Work Phone: [facility] 11-09-2024 00:25-0400 Body mass index (BMI) [Ratio] 22.09 kg/m2 Raji Gilliam MD Work Phone: [facility] 11-09-2024 00:25-0400 Body weight 54.8 kg Raji Gilliam MD Work Phone: [facility] 11-07-2024 10:47-0400 Body height 157.5 cm [facility] 11-02-2024 12:55-0400 Body height 157.5 cm Lindsey Willard APRN.SPECIAL NEEDS CAREGIVER Work Phone: [facility] 11-02-2024 12:55-0400 Body mass index (BMI) [Ratio] 22.09 kg/m2 Lindsey Willard ELECTRIC MULE OPERATOR.SPECIAL NEEDS CAREGIVER Work Phone: [facility] 11-02-2024 12:55-0400 Body weight 54.8 kg Lindsey Willard ELECTRIC MULE OPERATOR.SPECIAL NEEDS CAREGIVER Work Phone: [facility] 11-02-2024 12:55-0400 Diastolic blood pressure 75 mm[Hg] Lindsey Lavern ELECTRIC MULE OPERATOR.SPECIAL NEEDS CAREGIVER Work Phone: [facility] 11-02-2024 12:55-0400 Heart rate 92 /min Lindsey Lavern ELECTRIC MULE OPERATOR.SPECIAL NEEDS CAREGIVER Work Phone: [facility] 11-02-2024 12:55-0400 SaO2% (BldA) [Mass fraction] 99 % Lindsey Lavern ELECTRIC MULE OPERATOR.SPECIAL NEEDS CAREGIVER Work Phone: [facility] 11-02-2024 12:55-0400 Systolic blood pressure 125 mm[Hg] Lindsey Lavern ELECTRIC MULE OPERATOR.SPECIAL NEEDS CAREGIVER Work Phone: [facility] 10-28-2024 16:50-0400 Diastolic blood pressure 83 mm[Hg] [facility] 10-28-2024 16:50-0400 Heart rate 81 /min [facility] 10-28-2024 16:50-0400 Respiratory rate 20 /min [facility] 10-28-2024 16:50-0400 SaO2% (BldA) [Mass fraction] 99 % [facility] 10-28-2024 16:50-0400 Systolic blood pressure 135 mm[Hg] [facility] 10-28-2024 14:33-0400 Body height 157.[address] [facility] 10-28-2024 14:33-0400 Body temperature 98.3 [degF] [facility] 10-28-2024 14:33-0400 Body weight 54.[address] [facility] 10-19-2024 22:50-0400 Body temperature 97.9 [degF] [facility] 10-19-2024 22:50-0400 Diastolic blood pressure 74 mm[Hg] [facility] 10-19-2024 22:50-0400 Heart rate 81 /min [facility] 10-19-2024 22:50-0400 Respiratory rate 18 /min [facility] 10-19-2024 22:50-0400 SaO2% (BldA) [Mass fraction] 99 % [facility] 10-19-2024 22:50-0400 Systolic blood pressure 140 mm[Hg] [facility] 10-19-2024 16:47-0400 Body height 157.[address] [facility] 10-19-2024 16:47-0400 Body weight 55.[address] [facility] 09-27-2024 14:00-0400 Diastolic blood pressure 71 mm[Hg] Tasha Zamora MD Work Phone: [employer] 09-27-2024 14:00-0400 Heart rate 93 /min Tasha Zamora MD Work Phone: [facility] 09-27-2024 14:00-0400 Respiratory rate 17 /min Tasha Zamora MD Work Phone: [employer] 09-27-2024 14:00-0400 SaO2% (BldA) [Mass fraction] 97 % Tasha Zamora MD Work Phone: [employer] 09-27-2024 14:00-0400 Systolic blood pressure 129 mm[Hg] Tasha Zamora MD Work Phone: [employer] 09-27-2024 10:48-0400 Body temperature 99 [degF] Tasha Zamora MD Work Phone: [facility] 09-20-2024 21:30-0400 Diastolic blood pressure 80 mm[Hg] Tasha Zamora MD Work Phone: [facility] 09-20-2024 21:30-0400 Heart rate 77 /min Tasha Zamora MD Work Phone: [facility] 09-20-2024 21:30-0400 Respiratory rate 18 /min Tasha Zamora MD Work Phone: [employer] [facility] 09-20-2024 21:30-0400 SaO2% (BldA) [Mass fraction] 97 % Tasha Zamora MD Work Phone: [employer] 09-20-2024 21:30-0400 Systolic blood pressure 119 mm[Hg] Tasha Zamora MD Work Phone: [employer] 09-20-2024 18:13-0400 Body height 157.5 cm Tasha Zamroa MD Work Phone: [employer] 09-20-2024 18:13-0400 Body mass index (BMI) [Ratio] 22.86 kg/m2 Tasha Zamora MD Work Phone: [employer] 09-20-2024 18:13-0400 Body temperature 98.1 [degF] Tasha Zamora MD Work Phone: [employer] 09-20-2024 18:13-0400 Body weight 56.7 kg Tasha Zamora MD Work Phone: [employer] 08-08-2024 19:32-0400 Diastolic blood pressure 62 mm[Hg] [facility] 08-08-2024 19:32-0400 SaO2% (BldA) [Mass fraction] 98 % [facility] 08-08-2024 19:32-0400 Systolic blood pressure 135 mm[Hg] [facility] 08-08-2024 17:51-0400 Body height 157.5 cm [facility] [employer] 08-08-2024 17:51-0400 Body mass index (BMI) [Ratio] 22.86 kg/m2 [employer] 08-08-2024 17:51-0400 Body temperature 98.29 [degF] [facility] 08-08-2024 17:51-0400 Body weight 56.7 kg [facility] [employer] 08-08-2024 17:51-0400 Heart rate 86 /min [facility] [employer] 08-08-2024 17:51-0400 Respiratory rate 20 /min [facility] 04-07-2024 16:14-0500 Heart rate 93 /min Peter Strugalski MD [facility] 04-07-2024 16:14-0500 SaO2% (BldA) [Mass fraction] 100 % Peter Escalera MD [facility] Phone[facility] 04-07-2024 13:10-0500 Body height 157.5 cm Peter Escalera MD [facility] 04-07-2024 13:10-0500 Body mass index (BMI) [Ratio] 22.86 kg/m2 Peter Escalera MD Work Phone[facility] 04-07-2024 13:10-0500 Body temperature 97.9 [degF] Peter Escalera MD Work Phone[facility] 04-07-2024 13:10-0500 Body weight 56.7 kg Peter Escalera MD [facility] 04-07-2024 13:10-0500 Diastolic blood pressure 88 mm[Hg] Peter Escalera MD [facility] 04-07-2024 13:10-0500 Respiratory rate 16 /min Peter Escalera MD [facility] 04-07-2024 13:10-0500 Systolic blood pressure 139 mm[Hg] Peter Escalera MD [facility] 01-19-2024 11:30-0500 Diastolic blood pressure 63 mm[Hg] Sabrina Dee MD, MPH Work Phone: [facility] 01-19-2024 11:30-0500 Heart rate 73 /min Sabrina Dee MD, MPH Work Phone: [facility] 01-19-2024 11:30-0500 Respiratory rate 18 /min Sabrina Dee MD, MPH Work Phone: [facility] 01-19-2024 11:30-0500 SaO2% (BldA) [Mass fraction] 99 % Sabrina Dee MD, MPH Work Phone: [facility] 01-19-2024 11:30-0500 Systolic blood pressure 120 mm[Hg] Sabrina Dee MD, MPH Work Phone: [facility] 01-19-2024 09:54-0500 Body temperature 98.01 [degF] Sabrina Dee MD, MPH Work Phone: [facility] 01-07-2024 16:13-0400 Diastolic blood pressure 41 mm[Hg] [facility] [employer] 01-07-2024 16:13-0400 Heart rate 82 /min [facility] [employer] 01-07-2024 16:13-0400 Respiratory rate 15 /min [facility] [employer] 01-07-2024 16:13-0400 Systolic blood pressure 127 mm[Hg] [facility] [employer] 01-07-2024 14:14-0400 Body height 157.5 cm [facility] [employer] 01-07-2024 14:14-0400 Body mass index (BMI) [Ratio] 21.95 kg/m2 [facility] [employer] 01-07-2024 14:14-0400 Body temperature 98.1 [degF] [facility] [employer] 01-07-2024 14:14-0400 Body weight 54.43 kg [facility] [employer] 01-07-2024 14:14-0400 SaO2% (BldA) [Mass fraction] 99 % [facility] [employer] 09-29-2023 21:39-0400 Heart rate 102 /min [facility] [employer] 09-29-2023 21:29-0400 SaO2% (BldA) [Mass fraction] 96 % [facility] [employer] 09-29-2023 20:32-0400 Diastolic blood pressure 94 mm[Hg] [facility] [employer] 09-29-2023 20:32-0400 Systolic blood pressure 124 mm[Hg] [facility] 09-29-2023 18:57-0400 Body height 157.5 cm [facility] 09-29-2023 18:57-0400 Body mass index (BMI) [Ratio] 22.86 kg/m2 [facility] 09-29-2023 18:57-0400 Body temperature 98.1 [degF] [facility] 09-29-2023 18:57-0400 Body weight 56.7 kg [facility] 09-29-2023 18:57-0400 Respiratory rate 18 /min [facility] 09-08-2023 09:00-0400 Diastolic blood pressure 54 mm[Hg] Sabrina Dee MD, MPH Work Phone: [facility] 09-08-2023 09:00-0400 Heart rate 83 /min Sabrina Dee MD, MPH Work Phone: [facility] 09-08-2023 09:00-0400 Respiratory rate 13 /min Sabrina Dee MD, MPH Work Phone: [facility] 09-08-2023 09:00-0400 SaO2% (BldA) [Mass fraction] 95 % Sabrina Dee MD, MPH Work Phone: [facility] 09-08-2023 09:00-0400 Systolic blood pressure 94 mm[Hg] Sabrina Dee MD, MPH Work Phone: [facility] 09-08-2023 08:04-0400 Body temperature 97.7 [degF] Sabrina Dee MD, MPH Work Phone: [facility] 09-08-2023 06:43-0400 Body height 157.5 cm Sabrina Dee MD, MPH Work Phone: [facility] 05-11-2023 09:01-0500 Body height 157.5 cm Sabrina Dee MD, MPH Work Phone: [facility] 05-11-2023 09:01-0500 Body mass index (BMI) [Ratio] 21 kg/m2 Sabrina Dee MD, MPH Work Phone: [facility] 05-11-2023 09:01-0500 Body weight 52.07 kg Sabrina Dee MD, MPH Work Phone: [facility] 05-11-2023 09:01-0500 Diastolic blood pressure 48 mm[Hg] Sabrina Dee MD, MPH Work Phone: [facility] 05-11-2023 09:01-0500 Heart rate 107 /min Sabrina Dee MD, MPH Work Phone: [facility] 05-11-2023 09:01-0500 SaO2% (BldA) [Mass fraction] 97 % Sabrina Dee MD, MPH Work Phone: [facility] 05-11-2023 09:01-0500 Systolic blood pressure 110 mm[Hg] Sabrina Dee MD, MPH Work Phone: [facility] 04-18-2023 17:39-0500 Diastolic blood pressure 79 mm[Hg] [facility] 04-18-2023 17:39-0500 Heart rate 114 /min [facility] 04-18-2023 17:39-0500 Respiratory rate 16 /min [facility] 04-18-2023 17:39-0500 SaO2% (BldA) [Mass fraction] 98 % [facility] 04-18-2023 17:39-0500 Systolic blood pressure 168 mm[Hg] [facility] 04-18-2023 15:29-0500 Body height 157.[address] [facility] 04-18-2023 15:29-0500 Body temperature 99.3 [degF] [facility] 04-18-2023 15:29-0500 Body weight 51.[address] [facility] 04-11-2023 23:50-0500 Diastolic blood pressure 82 mm[Hg] [facility] 04-11-2023 23:50-0500 Heart rate 106 /min [facility] 04-11-2023 23:50-0500 SaO2% (BldA) [Mass fraction] 97 % [facility] 04-11-2023 23:50-0500 Systolic blood pressure 151 mm[Hg] [facility] 04-11-2023 22:25-0500 Respiratory rate 18 /min [facility] 04-11-2023 21:20-0500 Body height 157.[address] [facility] 04-11-2023 21:20-0500 Body temperature 97.2 [degF] [facility] 04-11-2023 21:20-0500 Body weight [address] [facility] 04-02-2023 19:20-0500 Diastolic blood pressure 74 mm[Hg] [facility] 04-02-2023 19:20-0500 Heart rate 91 /min [facility] 04-02-2023 19:20-0500 Respiratory rate 18 /min [facility] 04-02-2023 19:20-0500 SaO2% (BldA) [Mass fraction] 96 % [facility] 04-02-2023 19:20-0500 Systolic blood pressure 137 mm[Hg] [facility] 04-02-2023 13:45-0500 Body height 157.[address] [facility] 04-02-2023 13:45-0500 Body temperature 97.6 [degF] [facility] 04-02-2023 13:45-0500 Body weight [address] [facility] 11-09-2022 16:30-0400 Diastolic blood pressure 81 mm[Hg] [facility] 11-09-2022 16:30-0400 Heart rate 78 /min [facility] 11-09-2022 16:30-0400 Respiratory rate 18 /min [facility] 11-09-2022 16:30-0400 SaO2% (BldA) [Mass fraction] 99 % [facility] 11-09-2022 16:30-0400 Systolic blood pressure 141 mm[Hg] [facility] 11-09-2022 13:47-0400 Body height 160.[address] [facility] 11-09-2022 13:47-0400 Body temperature 98.2 [degF] [facility] 11-09-2022 13:47-0400 Body weight 54.[address] [facility] 08-12-2022 13:15-0400 Diastolic blood pressure 68 mm[Hg] Sabrina Dee MD, MPH Work Phone: [facility] 08-12-2022 13:15-0400 Heart rate 67 /min Sabrina Dee MD, MPH Work Phone: [facility] 08-12-2022 13:15-0400 Respiratory rate 22 /min Sabrina Dee MD, MPH Work Phone: [facility] 08-12-2022 13:15-0400 SaO2% (BldA) [Mass fraction] 99 % Sabrina Dee MD, MPH Work Phone: [facility] 08-12-2022 13:15-0400 Systolic blood pressure 142 mm[Hg] Sabrina Dee MD, MPH Work Phone: [facility] 08-12-2022 11:45-0400 Body temperature 97.81 [degF] Sabrina Dee MD, MPH Work Phone: [facility] 08-12-2022 10:34-0400 Body height 157.5 cm Sabrina Dee MD, MPH Work Phone: [facility] 06-16-2022 10:52-0400 Body mass index (BMI) [Ratio] 23.41 kg/m2 Sabrina Dee MD, MPH Work Phone: [facility] 06-16-2022 10:52-0400 Body weight 58.06 kg Sabrina Dee MD, MPH Work Phone: [facility] 06-16-2022 10:52-0400 Diastolic blood pressure 68 mm[Hg] Sabrina Dee MD, MPH Work Phone: [facility] 06-16-2022 10:52-0400 Heart rate 83 /min Sabrina Dee MD, MPH Work Phone: [facility] 06-16-2022 10:52-0400 SaO2% (BldA) [Mass fraction] 98 % Sabrina Dee MD, MPH Work Phone: [facility] 06-16-2022 10:52-0400 Systolic blood pressure 122 mm[Hg] Sabrina Dee MD, MPH Work Phone: [facility] 03-22-2022 16:51-0500 Diastolic blood pressure 61 mm[Hg] [facility] 03-22-2022 16:51-0500 Heart rate 98 /min [facility] 03-22-2022 16:51-0500 Respiratory rate 20 /min [facility] 03-22-2022 16:51-0500 SaO2% (BldA) [Mass fraction] 98 % [facility] 03-22-2022 16:51-0500 Systolic blood pressure 149 mm[Hg] [facility] 03-22-2022 14:59-0500 Body height 157.[address] [facility] 03-22-2022 14:59-0500 Body temperature 97.9 [degF] [facility] 03-22-2022 14:59-0500 Body weight [address] [facility] 12-16-2021 11:53-0400 Body height 157.5 cm Sabrina Dee MD, MPH Work Phone: [facility] 12-16-2021 11:53-0400 Body mass index (BMI) [Ratio] 22.5 kg/m2 Sabrina Dee MD, MPH Work Phone: [facility] 12-16-2021 11:53-0400 Body weight 55.79 kg Sabrina Dee MD, MPH Work Phone: [facility] 12-16-2021 11:53-0400 Diastolic blood pressure 72 mm[Hg] Sabrina Dee MD, MPH Work Phone: [facility] 12-16-2021 11:53-0400 Heart rate 80 /min Sabrina Dee MD, MPH Work Phone: [facility] 12-16-2021 11:53-0400 SaO2% (BldA) [Mass fraction] 98 % Sabrina Dee MD, MPH Work Phone: [facility] 12-16-2021 11:53-0400 Systolic blood pressure 118 mm[Hg] Sabrina Dee MD, MPH Work Phone: [facility] 10-09-2021 20:00-0400 Body temperature 98.3 [degF] [facility] 10-09-2021 20:00-0400 Diastolic blood pressure 68 mm[Hg] [facility] 10-09-2021 20:00-0400 Heart rate 86 /min [facility] 10-09-2021 20:00-0400 Respiratory rate 20 /min [facility] 10-09-2021 20:00-0400 SaO2% (BldA) [Mass fraction] 100 % [facility] 10-09-2021 20:00-0400 Systolic blood pressure 110 mm[Hg] [facility] 10-09-2021 14:19-0400 Body height 157.[address] [facility] 10-09-2021 14:19-0400 Body weight 56.[address] [facility] 10-04-2021 19:00-0400 Diastolic blood pressure 66 mm[Hg] [facility] 10-04-2021 19:00-0400 Heart rate 72 /min [facility] 10-04-2021 19:00-0400 Respiratory rate 16 /min [facility] 10-04-2021 19:00-0400 SaO2% (BldA) [Mass fraction] 96 % [facility] 10-04-2021 19:00-0400 Systolic blood pressure 110 mm[Hg] [facility] 10-04-2021 15:16-0400 Body temperature 97.9 [degF] [facility] 10-04-2021 15:15-0400 Body height 157.[address] [facility] 10-04-2021 15:15-0400 Body weight 54.[address] [facility] 09-25-2021 19:58-0400 Heart rate 82 /min [facility] 09-25-2021 18:04-0400 Body temperature 98.1 [degF] [facility] 09-25-2021 18:00-0400 Body height 157.[address] [facility] 09-25-2021 18:00-0400 Body weight 55.[address] [facility] 09-25-2021 18:00-0400 Diastolic blood pressure 107 mm[Hg] [facility] 09-25-2021 18:00-0400 Respiratory rate 18 /min [facility] 09-25-2021 18:00-0400 SaO2% (BldA) [Mass fraction] 98 % [facility] 09-25-2021 18:00-0400 Systolic blood pressure 141 mm[Hg] [facility] 08-11-2021 18:12-0400 Heart rate 86 /min [facility] 08-11-2021 18:00-0400 Diastolic blood pressure 69 mm[Hg] [facility] 08-11-2021 18:00-0400 Respiratory rate 20 /min [facility] 08-11-2021 18:00-0400 SaO2% (BldA) [Mass fraction] 98 % [facility] 08-11-2021 18:00-0400 Systolic blood pressure 114 mm[Hg] [facility] 08-11-2021 16:06-0400 Body height 170.[address] [facility] 08-11-2021 16:06-0400 Body mass index (BMI) [Ratio] 19.6 kg/m2 [facility] 08-11-2021 16:06-0400 Body temperature 97.9 [degF] [facility] 08-11-2021 16:06-0400 Body weight [address] [facility] 03-19-2021 14:30-0500 Body height 157.48 cm Marya Ginty Other [employer] [facility] [employer] Other 03-19-2021 14:30-0500 Body mass index (BMI) [Ratio] 24.69 kg/m2 Marya Ginty Other [employer] Other 03-19-2021 14:30-0500 Body temperature 96 [degF] Marya Ginty Other [employer] Other 03-19-2021 14:30-0500 Body weight 61.24 kg Marya Ginty Other [employer] Other 03-19-2021 14:30-0500 Respiratory rate 63 /min Marya Ginty Other [employer] Other 03-19-2021 14:30-0500 SaO2% (BldA) [Mass fraction] 97 % Marya Ginty Other [employer] Other 03-26-2020 21:05-0500 Pulse Oximetry 100 % [facility] [place] 03-26-2020 21:01-0500 BP Diastolic 68 mm[Hg] [facility] [place] 03-26-2020 21:01-0500 BP Systolic 152 mm[Hg] [facility] [place] 03-26-2020 17:32-0500 BMI (Body Mass Index) 22.86 kg/m2 [place], [place] 03-26-2020 17:32-0500 Body weight 56.7 kg [facility] [place] 03-26-2020 17:32-0500 Height 157.5 cm [place], [place] 03-26-2020 17:32-0500 Pulse (Heart Rate) 90 /min [place] 03-26-2020 17:32-0500 Respiratory Rate 18 /min [facility] 03-26-2020 12:39-0500 Body Temperature 98.71 [degF] [facility] 08-25-2019 08:30-0400 Body Temperature 98.01 [degF] Rajeev [facility] 08-25-2019 08:30-0400 BP Diastolic 75 mm[Hg] Rajeev [facility] , [place] 08-25-2019 08:30-0400 BP Systolic 117 mm[Hg] Rajeev [facility] [place] 08-25-2019 08:30-0400 Pulse (Heart Rate) 84 /min [facility] 08-25-2019 08:30-0400 Pulse Oximetry 97 % Rajeev [facility] [place] 08-25-2019 08:30-0400 Respiratory Rate 16 /min Raje[facility] 08-25-2019 05:30-0400 BMI (Body Mass Index) 25.88 kg/m2 [place] 08-25-2019 05:30-0400 Body weight 64.18 kg Rajeev [facility] [place] 08-22-2019 16:00-0400 Height 157.5 cm Rajeev [place], [place] 03-04-2018 13:09-0500 BP Diastolic 69 mm[facility]Hg[facility] 03-04-2018 13:09-0500 BP Systolic 108 mm[Hg] [facility] 03-04-2018 13:09-0500 Pulse (Heart Rate) 79 /min [facility] 03-04-2018 13:09-0500 Pulse Oximetry 99 % [facility] 03-04-2018 13:09-0500 Respiratory Rate 16 /min [facility] 03-04-2018 11:01-0500 BMI (Body Mass Index) 22.86 kg/m2 [facility] 03-04-2018 11:-0500 Body Temperature 98.6 [degF] [facility] 03-04-2018 11:01-0500 Height 157.5 cm [facility] 03-04-2018 11:01-0500 Weight 56.7 kg [facility] 08-24-2017 20:58-0400 BP Diastolic 64 mm[Hg] [facility] 08-24-2017 20:58-0400 BP Systolic 126 mm[Hg] [facility] 08-24-2017 20:58-0400 Pulse (Heart Rate) 67 /min [facility] 08-24-2017 20:58-0400 Pulse Oximetry 98 % [facility] 08-24-2017 20:58-0400 Respiratory Rate 18 /min [facility] 08-24-2017 13:41-0400 BMI (Body Mass Index) 21.58 kg/m2 [facility] 08-24-2017 13:41-0400 Body Temperature 98.29 [degF] [facility] 08-24-2017 13:41-0400 Height 157.5 cm [facility] 08-24-2017 13:41-0400 Weight 53.52 kg [facility] 06-09-2017 09:32-0400 BP Diastolic 73 mm[Hg] Mario [facility] 06-09-2017 09:32-0400 BP Systolic 106 mm[Hg] [facility] 06-09-2017 09:32-0400 Pulse (Heart Rate) 86 /min Mario [facility] 06-09-2017 09:32-0400 Pulse Oximetry 99 % [facility] 06-09-2017 09:32-0400 Respiratory Rate 16 /min Mario Vaughn [facility] 06-09-2017 07:20-0400 BMI (Body Mass Index) 21.87 kg/m2 [facility] 06-09-2017 07:20-0400 Body Temperature 98.4 [degF] Mario Vaughn [facility] 06-09-2017 07:20-0400 Height 157.5 cm [facility] 06-09-2017 07:20-0400 Weight 54.23 kg [facility] 05-15-2017 08:11-0500 Body Temperature 98.01 [degF] David [facility] 05-15-2017 08:11-0500 BP Diastolic 69 mm[Hg] [facility] 05-15-2017 08:11-0500 BP Systolic 116 mm[Hg] [facility] 05-15-2017 08:11-0500 Pulse (Heart Rate) 76 /min [facility] 05-15-2017 08:11-0500 Pulse Oximetry 95 % [facility] 05-15-2017 08:11-0500 Respiratory Rate 15 /min [facility] 05-14-2017 12:58-0500 BMI (Body Mass Index) 21.95 kg/m2 [facility] 05-14-2017 12:58-0500 Height 157.5 cm [facility] 05-14-2017 12:58-0500 Weight 54.43 kg [facility] Encounters Encounter Date Encounter Type Care Provider Facility Start: 12-13-2024 End: 12-13-2024 ambulatory LINDSEY WILLARD Facility:[facility] Start: 12-09-2024 End: 12-11-2024 ambulatory CYNTHIA GALINDO Facility:[facility] Start: 12-08-2024 End: 12-08-2024 Emergency department patient visit [facility] Start: 11-25-2024 End: 11-29-2024 Evaluation and management of inpatient Geno Martin Facility:[facility] Start: 11-24-2024 Emergency department patient visit Loki Ernandez Facility:[facility] Start: 11-17-2024 ambulatory LINDSEY WILLARD Facil ity:[facility] Start: 11-17-2024 End: 11-17-2024 Subsequent hospital visit by physician Josse Romo MD Work Phone: Gastroenterology Comment on above: Chronic pancreatitis , unspecified pancreatitis type (HCC) [K86.1] Start: 11-06-2024 End: 11-09-2024 Evaluation and management of inpatient Raji Gilliam MD Work Phone: [facility] Comment on above: Acute pancreatitis, unspecified complication status, unspecified pancreatitis type (Primary Dx) Start: 11-02-2024 End: 11-03-2024 Office outpatient visit 15 minutes Lindsey Willard ELECTRIC MULE OPERATOR.SPECIAL NEEDS CAREGIVER Work Phone: Gastroenterology Comment on above: Chronic pancreatitis , unspecified pancreatitis type (HCC) (Primary Dx); Exocrine pancreatic insufficiency (HCC); Epigastric pain; Loose stools; Heartburn; Tobacco use Start: 11-02-2024 End: 11-03-2024 ambulatory LINDSEY ROSADOLY Facility:[facility] Start: 10-28-2024 End: 10-28-2024 Emergency department patient visit -Emergency Room Work Phone: Start: 10-26-2024 End: 10-26-2024 Emergency department patient visit [facility] Start: 10-24-2024 End: 10-24-2024 Emergency department patient visit [facility] Facility:[facility] Start: 10-19-2024 End: 10-19-2024 Emergency department patient visit -Emergency Room Work Phone: Start: 10-11-2024 End: 10-11-2024 Emergency department patient visit [facility] Start: 10-09-2024 End: 10-09-2024 Emergency department patient visit [facility] Facility:[facility] Start: 10-03-2024 End: 10-03-2024 Emergency department patient visit [facility] Facility:[facility] Start: 09-27-2024 End: 09-27-2024 Emergency department patient visit Tasha Zamora MD Work Phone: [facility] Emergency Department Comment on above: Abdominal pain, epig astric (Primary Dx); Nausea and vomiting, unspecified vomiting type Start: 09-20-2024 End: 09-20-2024 Emergency department patient visit Tasha Zamora MD Work Phone: [facility] Emergency Department Comment on above: Other chronic pancre atitis (HCC) (Primary Dx) Start: 09-18-2024 End: 09-19-2024 Emergency department patient visit [facility] Start: 09-05-2024 End: 09-05-2024 Emergency department patient visit [facility] Start: 08-10-2024 End: 08-10-2024 Emergency department patient visit [facility] Start: 08-08-2024 End: 08-08-2024 Emergency department patient visit [facility] Emergency Department Comment on above: Abdominal pain, epig astric (Primary Dx) Start: 07-20-2024 End: 07-21-2024 Emergency department patient visit [facility] Start: 06-27-2024 End: 06-27-2024 Emergency department patient visit [facility] Start: 06-15-2024 End: 06-15-2024 Emergency department patient visit [facility] Start: 05-31-2024 End: 05-31-2024 Emergency department patient visit [facility] Start: 04-07-2024 End: 04-07-2024 Emergency department patient visit Peter Escalera MD Work Phone: [facility] Emergency Department Comment on above: Acute pancreatitis w ithout infection or necrosis, unspecified pancreatitis type (Primary Dx); Acute recurrent pancreatitis Start: 03-18-2024 End: 03-18-2024 Emergency department patient visit [facility] Start: 01-19-2024 ambulatory SABRINA Ferreira carrier clinicty:[facility] Start: 01-19-2024 End: 01-19-2024 Subsequent hospital visit by physician Sabrina Dee MD, MPH Work Phone: [facility] Start: 01-14-2024 End: 01-14-2024 Emergency department patient visit [facility] Start: 01-07-2024 End: 01-07-2024 Emergency department patient visit [facility] ED Comment on above: Acute on chronic see creatitis (HCC) (Primary Dx); Abdominal pain, epigastric Start: 12-29-2023 End: 12-29-2023 Emergency department patient visit [facility] Start: 09-29-2023 End: 09-29-2023 Emergency department patient visit [facility] ED Comment on above: Hypokalemia (Primary Dx); Acute recurrent pancreatitis Start: 09-08-2023 End: 09-08-2023 Subsequent hospital visit by physician Sabrina Dee MD, MPH Work Phone: [facility] Start: 09-08-2023 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 Start: 04-18-2023 End: 04-18-2023 Emergency department patient visit [facility] Work Phone: Start: 04-16-2023 Telephone encounter Monalisa [facility] Start: 04-11-2023 End: 04-12-2023 Emergency department patient visit [facility] Work Phone: Start: 04-02-2023 End: 04-02-2023 Emergency department patient visit [facility] Work Phone: Start: 11-09-2022 End: 11-09-2022 Emergency department patient visit [facility] Work Phone: Start: 08-12-2022 End: 08-12-2022 Subsequent hospital visit by physician Sabrina Dee MD, MPH Work Phone: [facility] Start: 06-16-2022 End: 06-16-2022 Office outpatient visit 40 minutes Sabrina Dee MD, MPH Work Phone: [facility] Comment on above: Osteoporosis without current pathological fracture, unspecified osteoporosis type (Primary Dx); Alcohol-induced chronic pancreatitis Start: 06-13-2022 End: 06-13-2022 ambulatory ARIC ARCINIEGA . Facility:[facility] Start: 03-29-2022 End: 03-29-2022 ambulatory ELENITA ROLLINS . Facility:[facility] Start: 03-22-2022 End: 03-22-2022 Emergency department patient visit [facility] Work Phone: Start: 03-19-2022 End: 03-19-2022 ambulatory MONIK PARKINSON . Facility:[facility] Start: 01-28-2022 End: 01-28-2022 Subsequent hospital visit by physician Sabrina Dee MD, MPH Work Phone: [facility] Start: 01-27-2022 End: 01-27-2022 Subsequent hospital visit by physician Sabrina Dee MD, MPH Work Phone: [facility] [place] Comment on above: Arrived Start: 01-15-2022 End: 01-15-[address] CRUZITO KITCHEN . Facility:[facility] Start: 12-16-2021 End: 12-16-2021 Office outpatient visit 25 minutes Sabrina Dee MD, MPH Work Phone: [facility] Comment on above: Recurrent acute panc reatitis (Primary Dx); History of smoking 25-50 pack years; Alcohol-induced chronic pancreatitis; Epigastric pain; Encounter for screening colonoscopy Start: 12-13-2021 End: 12-14-2021 ambulatory NICK COY Facility:[facility] Start: 12-05-2021 End: 12-05-[address] RAJEEV KELLOGG Facility:[facility] Start: 10-11-2021 End: 10-12-[address] RAJEEV KELLOGG Facility:[facility] Start: 10-04-2021 End: 10-04-2021 Emergency department patient visit [facility] Start: 09-30-2021 End: 09-30-2021 ambulatory NAT MAXWELL . Facility:[facility] Start: 09-25-2021 End: 09-25-2021 Emergency department patient visit [facility] Start: 09-17-2021 End: 09-17-[address] RAJEEV KELLOGG Facility:[facility] Start: 08-26-2021 End: 08-26-2021 ambulatory NICK COY Facility:[facility] Start: 08-22-2021 End: 08-22-[address] TRI HANSON Facility:[facility] Start: 08-13-2021 End: 08-13-2021 ambulatory AGUSTIN MADRIGAL Facility:[facility] Start: 08-11-2021 End: 08-11-2021 Emergency department patient visit [facility] Start: 07-31-2021 End: 07-31-2021 ambulatory YANNI FRASER Facility:[facility] Start: 07-19-2021 End: 07-19-2021 ambulatory LYNNE PERDOMO Facility:[facility] Start: 03-19-2021 End: 03-19-2021 ambulatory Marya Almonte Other [employer] Other Start: 03-19-2021 Office outpatient visit 15 minutes Marya Almonte [facility] Start: 05-22-2020 End: 05-22-2020 Orders Only Izabela Grant Work Phone: [facility] Start: 03-26-2020 End: 03-26-2020 Emergency department patient visit [facility] ED Comment on above: Acute biliary pancre atitis, unspecified complication status (Primary Dx) Start: 08-22-2019 End: 08-25-2019 Evaluation and management of inpatient Rajeev Cantor Work Phone: [facility] Comment on above: Acute pancreatitis, unspecified complication status, unspecified pancreatitis type (Primary Dx); Pain of upper abdomen Start: 03-08-2018 End: 03-09-2018 Evaluation and management of inpatient [facility] Start: 03-04-2018 End: 03-04-2018 Patient encounter procedure [facility] Start: 03-04-2018 End: 03-04-2018 Emergency department patient visit Keerthi Nguyen Work Phone: [phone] [place] [address] Emergency Department Comment on above: Acute on chronic see creatitis (HCC) (Primary Dx) Start: 08-24-2017 End: 08-24-2017 Emergency department patient visit [facility] Start: 08-24-2017 End: 08-24-2017 Emergency department patient visit Sarah Walton Work Phone: [phone] [place] [address] Emergency Department Start: 06-09-2017 End: 06-09-2017 Emergency department patient visit [facility] Start: 06-09-2017 End: 06-09-2017 Emergency department patient visit Mario Mendes Work Phone: [phone] [place] [address] Emergency Department Start: 05-14-2017 End: 05-15-2017 Patient encounter procedure [facility] Start: 05-14-2017 End: 05-15-2017 Emergency department patient visit David Gibson Work Phone: [phone] [place] [address] Medical Observation Procedures Date Procedure Procedure Detail Performing Clinician Start: 11-17-2024 Esophagoscp rig transoral hypopharynx crv yun Willard ELECTRIC MULE OPERATOR.SPECIAL NEEDS CAREGIVER Work Phone: Start: 11-09-2024 Assay of lipase Raji Gilliam MD Work Phone: Start: 11-08-2024 Mri abdomen w/o & w/contrast material Carley Anne ELECTRIC MULE OPERATOR - SPECIAL NEEDS CAREGIVER Work Phone: Start: 11-08-2024 Assay of lipase [...] Zamora MD Work Phone: Start: 08-08-2024 Urinalysis microscopic [...] panel - Serum or Plasma Lindsey Willard ELECTRIC MULE OPERATOR.SPECIAL NEEDS CAREGIVER Work Phone: Start: 03-04-2018 End: 03-04-2018 Urinalysis [...] Keerthi Nguyen Start: 10-10-2011 Colonoscopy Lindsey Willard ELECTRIC MULE OPERATOR.SPECIAL NEEDS CAREGIVER Work Phone: Start: 08-22-2011 History of cholecystectomy S/P cholecystectomy Lindsey khan ELECTRIC MULE OPERATOR.SPECIAL NEEDS CAREGIVER Work Phone: Plan of Treatment Date Care Activity Detail Author Start: 11-10-2027 Diabetes Screening Diabetes Screening [facility] Start: 10-12-2027 Diabetes Screening Diabetes Screening [facility] Start: 12-05-2024 End: 12-05-2024 Follow-up encounter 12/05/2024 1:30 PM EDT [facility] Gastroenterology [address] [phone] Lindsey Willard APRN.SPECIAL NEEDS CAREGIVER [address] [phone] follow up Gastroenterology Comment on above: follow up Start: 11-17-2024 End: 11-17-2024 Patient encounter procedure 11/17/2024 3:30 PM EDT Appointment Gastroenterology [address] [phone] Josse Romo MD [address] [place] [address] Chronic pancreatitis, unspecified pancreatitis type (HCC) [K86.1] Gastroenterology Comment on above: Chronic pancreatitis, unspecified pancre atitis type (HCC) [K86.1] Start: 11-07-2024 COVID-19 Vaccine () COVID-19 Vaccine () [facility] Start: 11-07-2024 Influenza vaccination Influenza Vaccine (#1) [facility] Start: 10-07-2024 Influenza vaccination [facility] Start: 04-11-2024 Adult BMI Screening Adult BMI Screening [facility] [facility] Start: 04-11-2024 Tobacco Screening Tobacco Screening [facility] [employer] [facility] Start: 02-22-2024 End: 02-22-2024 Patient encounter procedure 02/22/2024 9:30 AM EST Office Visit [facility] [address] [address] Sabrina Dee MD, MPH [address] [place] [id number] [facility] Start: 11-08-2023 COVID-19 Vaccine ( season) COVID-19 Vaccine ( season) [facility] Start: 11-08-2023 COVID-19 Vaccine ( season) COVID-19 Vaccine ( season) [facility] Start: 11-08-2023 COVID-19 VACCINE ( season) COVID-19 VACCINE ( season) [facility] Start: 11-08-2023 Influenza vaccination INFLUENZA VACCINE (#1) [facility] Start: 10-08-2023 Influenza vaccination Flu vaccine (#1) [facility] Start: 05-25-2023 End: 05-25-2023 Patient encounter procedure 05/25/2023 1:00 PM EDT Office Visit [facility] [address] [place] [address] Orlando Al MD [address] [place] [address] [facility] Start: 05-19-2023 End: 05-10-2024 UPPER EUS UPPER EUS GI/Bronch Routine Alcohol-induced chronic pancreatitis Expected: 05/19/2023, Expires: 05/10/2024 [facility] Comment on above: Expected: 05/19/2023, Expires: Start: 05-11-2023 End: 05-10-2024 VITAMIN D (25-HYDROXY,TOTAL) VITAMIN D (25-HYDROXY,TOTAL) Lab Routine Other osteoporosis without current pathological fracture Expected: 05/11/2023, Expires: 05/10/2024 [facility] Comment on above: Expected: 05/11/2023, Expires: Start: 04-11-2023 Computed tomography of abdomen and pelvis with contrast CT abdomen pelvis w con [facility] Start: 04-11-2023 CT Abdomen and Pelvis W contrast IV [facility] Start: 03-16-2023 End: 03-16-2023 Patient encounter procedure 03/16/2023 Office Visit Gastroenterology Sabrina Dee MD, MPH [address] [place] [address] [facility] Start: 03-08-2023 Lipid panel Lipid Screening [facility] Start: 11-07-2022 COVID-19 VACCINE ( season) COVID-19 VACCINE ( season) [facility] Start: 11-07-2022 Influenza vaccination [facility] Start: 09-25-2022 Lipid panel LIPID SCREENING [facility] Start: 07-29-2022 End: 06-17-2023 UPPER EUS UPPER EUS GI/Bronch Routine Alcohol-induced chronic pancreatitis Expected: 07/29/2022, Expires: 06/17/2023 [facility] Comment on above: Expected: 07/29/2022, Expires: Start: 07-28-2022 End: 01-28-2023 Screening colonoscopy SCREENING COLONOSCOPY GI/Bronch Routine Encounter for screening colonoscopy Expected: 07/28/2022, Expires: 01/28/2023 [facility] Comment on above: Expected: 07/28/2022, Expires: 3 Start: 07-28-2022 End: 07-28-2022 Patient encounter procedure 07/28/2022 Appointment Endoscopy Julia Tyler MD [address] [address] [facility] Endoscopy Department Start: 06-16-2022 End: 12-16-2022 Screening colonoscopy SCREENING COLONOSCOPY GI/Bronch Routine Encounter for screening colonoscopy Expected: 06/16/2022, Expires: 12/16/2022 [facility] Comment on above: Expected: 06/16/2022, Expires: 3 Start: 06-16-2022 End: 06-16-2022 Patient encounter procedure 06/16/2022 Office Visit Gastroenterology Sabrina Dee MD, MPH [address] [place] [address] [facility] Start: 03-22-2022 Bacteria identified in Urine by Culture [facility] Start: 01-28-2022 End: 01-28-2022 Patient encounter procedure 01/28/2022 Appointment Endoscopy Sabrina Dee MD, MPH [address] [place] [address] [facility] Start: 01-28-2022 Subsequent hospital visit by physician 01/28/2022 Hospital Encounter Endoscopy Sabrina Dee MD, MPH [address] [place] [address] Arrived [facility] Comment on above: Arrived Start: 01-14-2022 End: 12-16-2022 UPPER EUS UPPER EUS GI/Bronch Routine Recurrent acute pancreatitis Expected: 01/14/2022, Expires: 12/16/2022 [facility] Comment on above: Expected: 01/14/2022, Expires: 3 Start: 12-16-2021 End: 12-16-2022 Bone density scan BONE DENSITY AXIAL (HIP, PELVIS, SPINE) Imaging Routine Recurrent acute pancreatitis History of smoking 25-50 pack years Expected: 12/16/2021, Expires: 12/16/2022 [facility] Comment on above: Expected: 12/16/2021, Expires: 3 Start: 11-07-2021 Influenza vaccination INFLUENZA VACCINE (#1) [facility] Start: 10-09-2021 CT of abdomen and pelvis without contrast CT abdomen pelvis wo [facility] Start: 10-09-2021 End: 10-09-2021 Emergency department patient visit Departed Emergency [facility] Start: 11-13-2020 COVID-19 VACCINE (3 - Booster for Pfizer series) COVID-19 VACCINE (3 - Booster for Pfizer series) [facility] Start: 11-08-2019 Influenza vaccination [place] Start: 11-08-2019 Influenza vaccination given Sequential Influenza Vaccine (#1) [facility] Start: 06-21-2019 Administration of herpes zoster vaccine Zoster Vaccines (1 of 2) [facility] Start: 06-21-2019 Administration of varicella zoster vaccine Zoster (Shingles) Vaccine (1 of 2) [facility] Start: 06-21-2019 Pneumococcal 50+ years Vaccine (1 of 1 - PCV) Pneumococcal 50+ years Vaccine (1 of 1 - PCV) [facility] Start: 06-21-2019 Screening for malignant neoplasm of breast Breast cancer screen [place] Start: 06-21-2019 Screening for malignant neoplasm of colon [place] Start: 06-21-2019 Screening for malignant neoplasm of lung LUNG CANCER SCREENING [facility] Start: 06-21-2019 Shingles Vaccine (1 of 2) Shingles Vaccine (1 of 2) [facility] Start: 06-21-2019 Shingrix Vaccine (1 of 2) Shingrix Vaccine (1 of 2) [facility] Start: 06-21-2019 Zoster vaccine hzv live for subcutaneous use ZOSTER (SHINGLES) VACCINE (1 of 2) [facility] Start: 11-07-2017 Influenza vaccination [facility] Start: 11-07-2016 Influenza vaccination SEQUENTIAL INFLUENZA VACCINE (#1) [facility] Start: 12-10-2014 Screening for malignant neoplasm of cervix PAP SMEAR [facility] Start: 2014 Screening for malignant neoplasm of colon [facility] Start: 01-01-2014 Screening for malignant neoplasm of breast Breast cancer screen [facility] Start: 01-01-2013 Screening for malignant neoplasm of breast [facility] Start: 01-01-2013 Screening mammography Mammogram [facility] Start: 2009 Lipid panel [facility] Start: 1990 Screening for malignant neoplasm of cervix [facility] Start: 1988 DTaP,Tdap and Td Vaccines (1 - Tdap) DTaP,Tdap and Td Vaccines (1 - Tdap) [facility] Start: 1988 DTaP/Tdap/Td vaccine (1 - Tdap) DTaP/Tdap/Td vaccine (1 - Tdap) [facility] Start: 1988 Hepatitis B vaccination HEP B VACCINE (1 of 3 - 19+ 3-dose series) [facility] Start: 1988 Hepatitis B vaccine (1 of 3 - 19+ 3-dose series) Hepatitis B vaccine (1 of 3 - 19+ 3-dose series) [facility] Start: 1988 Pneumococcal 50+ years Vaccine (1 of 2 - PCV) Pneumococcal 50+ years Vaccine (1 of 2 - PCV) [facility] Start: 1988 Pneumococcal Vaccine: 50+ (1 of 2 - PCV) Pneumococcal Vaccine: 50+ (1 of 2 - PCV) [facility] Start: 1988 Third diphtheria, tetanus and acellular pertussis (DTaP) vaccination TDAP (ADULT) [facility] Start: 1988 Urine microalbumin profile DTaP,Tdap,Td Vaccine (1 - Tdap) [facility] Start: 06-21-1987 Anxiety Screening Anxiety Screening [facility] Start: 06-21-1987 Depression Screening Depression Screening [facility] Start: 06-21-1987 Hepatitis C antibody, confirmatory test Hepatitis C Screening [facility] Start: 06-21-1987 Hepatitis C screening [facility] Start: 06-21-1987 HIV screening HIV Screening [facility] Start: 06-21-1987 Tetanus vaccination TETANUS [facility] Start: 1985 COVID-19 Vaccine (1 of 2) COVID-19 Vaccine (1 of 2) [facility] Start: 1984 HIV screening [facility] Start: 1981 Depression Screen Depression Screen [facility] Start: 1981 Depression Screening [facility] Start: 06-21-1975 Pneumococcal 0-64 years Vaccine (1 of 1 - PPSV23) Pneumococcal 0-64 years Vaccine (1 of 1 - PPSV23) [place] Start: 06-21-1975 Pneumococcal 0-64 years Vaccine (1 of 2 - PCV) Pneumococcal 0-64 years Vaccine (1 of 2 - PCV) [facility] Start: 06-21-1975 PNEUMOCOCCAL VACCINE SERIES (1 - PCV) PNEUMOCOCCAL VACCINE SERIES (1 - PCV) [facility] Start: 06-21-1975 PNEUMOCOCCAL VACCINE SERIES (1 of 2 - PCV) PNEUMOCOCCAL VACCINE SERIES (1 of 2 - PCV) [facility] Start: 1972 History and physical examination, annual for health maintenance Wellness Visit [facility] Start: 1969 COVID-19 Vaccine (#1) COVID-19 Vaccine (#1) [facility] Start: 1969 Hepatitis B vaccination HEP B VACCINE (1 of 3 - 3-dose series) [facility] Start: 1969 Hepatitis B vaccine (1 of 3 - 3-dose series) Hepatitis B vaccine (1 of 3 - 3-dose series) [facility] Start: 1969 Hepatitis C screening [facility] Start: 1969 Tetanus vaccination [facility] Start: 1969 Tobacco Counseling Tobacco Counseling [facility] CBC auto differential CBC auto d ifferential Lab Routine Daily until discontinued starting 08/23/2019, 3 completed [place] Comment on above: Daily until discontinued starting 2019, 3 completed End: 09-05-2025 CBC W Auto Differential panel - Blood CBC auto differential Lab Routine Daily for 5 Days starting 11/07/2024 until 11/11/2024, 3 completed [employer] Work Phone: Comment on above: Daily for 5 Days starting 11/07/2024 unt il 11/11/2024, 3 completed End: 11-11-2024 Comprehensive Metabolic Panel w/ Reflex to MG Comprehensive Metabolic Panel w/ Reflex to MG Lab Routine Daily for 5 Days starting 11/07/2024 until 11/11/2024, 3 completed [employer] Comment on above: Daily for 5 Days starting 11/07/2024 unt il 11/11/2024, [address] ABDOMEN PELVIS W IV CONTRAST Additional Contrast? None CT ABDOMEN PELVIS W IV CONTRAST Additional Contrast? None Imaging STAT 03/26/2020 3:01 PM [employer] End: 11-02-2025 EGD - THERAPEUTIC, EUS, OR TUBE INTERVENTIONS EGD - THERAPEUTIC, EUS, OR TUBE INTERVENTIONS Endoscopy Routine Chronic pancreatitis, unspecified pancreatitis type (HCC) Epigastric pain Loose stools Heartburn Exocrine pancreatic insufficiency (HCC) 1 Occurrences starting 11/02/2024 until 11/02/2025 [facility] Work Phone: Comment on above: 1 Occurrences starting 11/02/2024 until 11/02/2025 EKG 12 Lead EKG 12 Lead ECG Routine 01/07/2024 2:42 PM EDT [employer] Work Phone: IgG Subclasses IgG Subclasses A dd-On 05/14/2017 2:06 PM [employer] Initiate Oxygen Therapy Protocol Initiate Oxygen Therapy Protocol Respiratory Care Routine Daily until discontinued starting 08/22/2019 [employer] Comment on above: Daily until discontinued starting 2019 Lipase Lipase Lab Routi ne Daily until discontinued starting 08/23/2019, 3 completed [employer] Comment on above: Daily until discontinued starting 2019, 3 completed End: 11-11-2024 Lipase [Enzymatic activity/volume] in Serum or Plasma Lipase Lab Routine Daily for 5 Days starting 11/07/2024 until 11/11/2024, 3 completed [employer] Comment on above: Daily for 5 Days starting 11/07/2024 unt il 11/11/2024, 3 completed Patient Education [facility] Work Phone: Patient referral [facility] Work Phone: End: 08-22-2019 Pulse Oximetry Spot Check Pulse Oximetry Spot Check Respiratory Care Routine One Time for 1 Occurrences starting 08/22/2019 until 08/22/2019 [facility] Comment on above: One Time for 1 Occurrences starting 08/07 until 08/22/2019 Screening colonoscopy SCREENING COLONOSCOPY GI/Bronch Routine Encounter for screening colonoscopy 01/28/2022 9:43 AM EST [facility] Screening colonoscopy SCREENING COLONOSCOPY GI/Bronch Routine Encounter for screening for malignant neoplasm of colon Ordered: 05/11/2023 [facility] Comment on above: Ordered: 05/11/2023 End: 04-07-2024 SPECIMEN REJECTION [facility] Comment on above: Once for 1 Occurrences starting 04/07/19 25 until 04/07/2024 End: 09-27-2024 Urinalysis with Microscopic Urinalysis with Microscopic Lab STAT One Time for 1 Occurrences starting 09/27/2024 until 09/27/2024 [facility] [facility] Comment on above: One Time for 1 Occurrences starting 09/07 until 09/27/2024 Immunizations Immunization Date Immunization Notes Care Provider Fa joy 12-23-2015 influenza, injectabl e, quadrivalent, contains preservative Sabrina Dee MD, MPH Work Phone: [facility] 12-23-2015 influenza virus vaccine, unspecified formulation Sabrina Dee MD, MPH Work Phone: [facility] 12-15-2014 influenza virus vaccine, unspecified formulation Sabrina Dee MD, MPH Work Phone: [facility] Payers Date Payer Category Payer Self-pay [id number] 2023 Private Health Insurance [id number]. [id number] 2022 Medicaid [id number] 2022 Medicaid [id number] 2019 Unknown [facility] MEDICA[facility] xxxxxxxxxxx 2019-Present [phone] CLAIMS DEPARTMENT [address] [place] [address] xxxxxxxxxxx [id number]. [id number] 2017 Unknown [id number] 2017 Unknown 1969 Unknown [id number] 2.16.840.1.434527.3.579.2. 900 1969 Unknown [id number] 2.16.840.1.198422.3.579.2. 900 1969 Unknown [id number] 2.16.840.1.310227.3.579.2. 900 1969 Unknown [id number] 2.16.840.1.672542.3.579.2. 900 1969 Unknown [id number] 2.16.840.1.399361.3.579.2. 900 1969 Unknown [id number] 2.16.840.1.699077.3.579.2. 593 1969 Unknown [id number] 2.16.840.1.009724.3.579.2. 593 1969 Unknown [id number] 2.16.840.1.557975.3.579.2. 593 1969 Unknown [id number] 2.16.840.1.170669.3.579.2. 593 1969 Unknown [id number] 2.16.840.1.112404.3.579.2. 593 1969 Unknown [id number] 2.16.840.1.541577.3.579.2. 593 1969 Unknown [id number] 2.16.840.1.761465.3.579.2. 593 1969 Unknown [id number] 2.16.840.1.229658.3.579.2. 593 1969 Unknown [id number] 2.16.840.1.712116.3.579.2. 593 1969 Unknown [id number] 2.16.840.1.488659.3.579.2. 593 1969 Unknown [id number] 2.16.840.1.845939.3.579.2. 593 1969 Unknown [id number] 2.16.840.1.652376.3.579.2. 593 1969 Unknown [id number] 2.16.840.1.500013.3.579.2. 593 1969 Unknown [id number] 2.16.840.1.601026.3.579.2. 593 1969 Unknown [id number] 2.16.840.1.320962.3.579.2. 594 1969 Unknown [id number] 2.16.840.1.803958.3.579.2. 594 1969 Unknown [id number] 2.16.840.1.420990.3.579.2. 594 1969 Unknown [id number] 2.16.840.1.682934.3.579.2. 727 1969 Unknown [id number] 2.16.840.1.396478.3.579.2. 727 1969 Unknown [id number] 2.16.840.1.779882.3.579.2. 727 1969 Unknown [id number] 2.16.840.1.299515.3.579.2. 727 1969 Unknown [id number] 2.16.840.1.970595.3.579.2. 727 1969 Unknown [id number] 2.16.840.1.473236.3.579.2. 727 1969 Unknown [id number] 2.16.840.1.146243.3.579.2. 173 1969 Unknown [id number] 2.16.840.1.360382.3.579.2. 173 1969 Unknown [id number] 2.16.840.1.395626.3.579.2. 173 1969 Unknown [id number] 2.16.840.1.868340.3.579.2. 173 1969 Unknown [id number] 2.16.840.1.863352.3.579.2. 173 1969 Unknown [id number] 2.16.840.1.944439.3.579.2. 173 1969 Unknown [id number] 2.16.840.1.975897.3.579.2. 727 1969 Unknown [id number] 2.16.840.1.359894.3.579.2. 1969 Unknown [id number] 2.16.840.1.350511.3.579.2. 7 1969 Unknown [id number] 2.16.840.1.429655.3.579.2. 1969 Unknown [id number] 2.16.840.1.602251.3.579.2. 727 1969 Unknown [id number] 2.16.840.1.365822.3.579.2. 6 1969 Unknown [id number] 2.16.840.1.816700.3.579.2. 1286 1969 Unknown [id number] 2.16.840.1.685876.3.579.2. 1285 1969 Unknown [id number] 2.16.840.1.938943.3.579.2. 6 1969 Unknown [id number] 2.16.840.1.689506.3.579.2. 1285 1969 Unknown [id number] 2.16.840.1.794226.3.579.2. 1285 1969 Unknown [id number] 2.16.840.1.597374.3.579.2. 1285 1969 Unknown [id number] 2.16.840.1.283942.3.579.2. 1285 1969 Unknown [id number] 2.16.840.1.761274.3.579.2. 1285 1969 Unknown [id number] 2.16.840.1.886946.3.579.2. 1285 1969 Unknown [id number] 2.16.840.1.945259.3.579.2. 1285 1969 Unknown [id number] 2.16.840.1.086228.3.579.2. 1285 1969 Unknown [id number] 2.16.840.1.887638.3.579.2. 6 1959 Medicaid [id number] 1959 Unknown [id number] 1.2.840.873296.1.13.239.2. 7.3.620066.315 Unknown [id number] 2.16.840.1.893428.3.579.2. 531 Unknown [id number] 2.16.840.1.788532.3.579.2. 531 Social History Date Type Detail Facility Start: 06-09-2017 End: 11-02-2024 Tobacco smoking status KSIS Current every day smoker [facility] End: 10-30-2020 History of tobacco use Cigarette Smoker [facility] Start: 06-09-2017 End: 11-02-2024 Cigarettes smoked current (pack per day) - Reported [facility] Start: 1970 Sex Assigned At Not on file [facility] Start: 08-22-2019 End: 11-08-2024 Alcohol intake Current non-drinker of alcohol (finding) [place] Exposure to SARS-CoV-2 (event) Unable to assess [facility] [place] Start: 03-08-2018 End: 11-02-2024 Tobacco use and exposure Never used [facility] [place] Start: 07-24-2014 Tobacco Comment Smokes < 1/2 p pd, smoker for 30+ years [facility] Start: 07-24-2014 Alcohol Comment Prior heavy dr carrillo, quit 8 years ago [facility] Start: 08-12-2022 End: 11-02-2024 Sex Assigned At [facility] Start: 09-25-2021 End: 04-18-2023 Tobacco smoking status KSIS Smoker (finding) [facility] Start: 1970 Sex Assigned At Female F [facility] Start: 05-09-2016 Alcohol Comment been sober for 9 yea rs [facility] Start: 04-02-2023 Tobacco smoking status KSIS Current some day smoker [facility] Start: 08-08-2024 Gender identity Identifies as female gender (finding) [facility] How often to you hav e a drink containing alcohol? Never [facility] Start: 02-08-2012 How many standard drinks containing alcohol do you have on a typical day? Patient does not drink [facility] Start: 06-25-2022 End: 09-27-2024 Tobacco smoking status KSIS Ex-smoker [facility] Start: 04-11-2023 End: 11-17-2024 Alcohol intake Ex-drinker (finding) [facility] Start: 06-25-2022 Alcohol Comment Has not consum ed alcohol in 12 years [facility] Start: 04-18-2012 Sex Female (finding) [facility] Start: 08-08-2024 Sexual orientation Heterosexual (fin nayan) [facility] Start: 11-02-2024 Tobacco Comment [facility] In the past 12 months, was there a time when you were not able to pay the mortgage or rent on time? No [facility] (I/We) worried whether (my/our) food would run out before (I/we) got money to buy more. Never true [facility] NEGATED: Highlighted rowStart: JACLYN History of tobacco use Passive smoker [facility] Functional Status Date Assessment Result Facility 11-17-2024 Total score [AUDIT-C] 0 11/18/19 25 2:05 PM EDT Colin Guzman RN [facility] Clinical Notes 10-08-2019 to 12-13-2024 Mayra Santiago RN - 11/17/2024 3:24 PM Mayra Flynn RN - 11/17/2024 3:24 PM Colin Mendoza RN - 11/17/2024 2:08 PM Colin Mendoza RN - 11/17/2024 2:08 PM EDTPatient Instructions Note Date & Type Note Facility 12-13-2024 Note HNO ID: [id number] Author: LINDSEY WILLARD APRN.SPECIAL NEEDS CAREGIVER Service: ? Author Type: Nurse Practitioner Type: [...] use and chronic pancreatitis who presented to [facility] Main ED on 12/09 with progressively worsening epigastric pain and N/V x3 days. Was seen in emergency department 12/[address] scan with chronic findings but also a mucosal pancreatic wall thickening. She follows with [facility] GI outpatient and underwent a celiac [...] entire pancreas. - Celiac plexus block performed. [facility] 11/02/2024 IMPRESSION AND PLAN Chioma Rainey is a 54 year old female who presents today for consult for pancreatitis. She has past medical history of gallstones s/p cholecystectomy, anemia and chronic ETOH pancreatitis. 1. Chronic pancreatitis, unspecified pancreatitis type (HCC) (K86.1) 2. E (more content not included)... [facility] 12-11-2024 Note HNO ID: [id number] Author: OBINNA GIFFORD RPh Service: Pharmacy Author [...] discharge medication list. Obinna Gifford RPh Pager: [phone] 12/11/2024 11:10 AM Medication List START taking [...] -120,000 unit delayed release capsule Generic drug: fxtfrb-gjublqje-rsbkslt Take 2 caps by mouth 3 times daily with meals and 1 cap with each snack. Take 1st cap before meal starts and the 2nd cap residential through. Max of 10 capsules per day. STOP taking these medications PERCOCET 5-325 mg tablet Generic drug: oxyCODONE-acetaminophen Where to Get Your Medications These medications [place] [id number] [place] [address] - [address] - [phone] [place] [address] ondansetron 4 mg tablet oxyCODONE IR 5 mg immediate release tablet You can get these medications from any pharmacy You don't need a prescription for these medications acetaminophen 500 mg tablet [facility] 12-10-2024 Note HNO ID: [id number] Author: ALEXUS YOUNGBLOOD PA-C Service: Hospital Medicine Author Type: Physician Auto Inspector Type: Progress Notes Filed: 12/10/2024 12:27 Note Text: DEPARTMENT OF HOSPITAL MEDICINE PROGRESS NOTE SERVICE DATE: 12/10/2024 SERVICE TIME: 12:22 PM Hospital Medicine/Primary Attending: Marianna John MD NIGHT AND WEEKEND COVERAGE: [facility] COVERAGE: Days: [phone], please page Alexus Youngblood for patient issues. Nights: [phone], please page Team GIM 2: G/H 8th floor: [phone]; Non 8th floor [phone] Subjective INTERVAL HPI: - patient resting in [...] mg injection (PEPCID) 20 mg INTRAVENOUS DAILY pbqtwb-vbadwdwu-qvqpfws 2 capsule cap(s) (CREON 24) 2 capsule [...] use and chronic pancreatitis who presented to [facility] Main ED on 12/09 with progressively [...] Prophylaxis/Anticoagulants 12/10/24 0357 activity - mobilize patient (hi,ne) VTE Prophylaxis: VTE prophylaxis appropriate Disposition: To be determined Plan of care discussed with Provider, RN, Patient Plan communicated to: Significant Other at bedside SIGNATURE: Alexus Youngblood PA-C PATIENT NAME: Chioma Rainey DATE: December 10, 2024 TIME: 12:22 PM [facility] 11-29-2024 Note Discharge Summary Admission and [...] with nausea. She was subsequently admitted to [facility] with acute on chronic pancreatitis with [...] with nursing staff, case management. Discharge medications: Bern 325/5 mg every 6 hours as needed. [...] meal (11/29/24 09:02:00) Discharge Medication List Prescriptions Bern 325 mg-5 mg oral tablet, 1 tab(s), [...] [place] Additional Instructions: Patient Education Acute Pancreatitis, Qxta-gv-Jczo [facility] Comment on above: Result Comment: Elec [...] clear diet and advance as tolerated. Ordered: [facility] Hospital Care/Day Moderate 35 Minutes 98616 2. Leukocytosis (D72.829: Elevated white blood cell count, unspecified) Resolved. [facility] Moderate 35 Minutes 86167 3. History of alcohol use (Z87.898: Personal history of other specified conditions) Historical. Patient has been sober for 12 to 13 years. [facility]: [facility]/Day Moderate 35 Minutes 09437 4. Smoker (F17.200: Nicotine dependence, unspecified, uncomplicated) Recommend cessation. Disposition: Home soon in AM. I discussed the diagnosis and plan of care with the patient at the bedside. Moderate level of MDM based on addressing above issues. This documentation was transcribed using voice recognition software. Several attempts were made to ensure accuracy. However inadvertent computerized flow floor attendant errors may be present. Tate Guido. Hospitalist. Ordered: [facility] Hospital Care/Day Moderate 35 Minutes [id number] Orders: HYDROmorphone, 1 mg = 1 mL, [...] Dis Tab, 4 (more content not included)... [facility] Comment on above: Result Comment: Elec tronically Signed By: SANDRA ALEXANDER, Tate\.br\Date and Time Signed: 11/28/24 10:41 EDT 11-28-2024 Note Marlyn Understands Medication Education Yes Marlyn Medication Education HYDROmorphone [facility] 11-27-2024 Note Progress Note-Physic malena Assessment/Plan 54-year-old female admitted for acute on chronic pancreatitis with leukocytosis. She has a history of alcohol use but not for 12-13 years chronic pancreatitis. 1. Acute on chronic pancreatitis (K85.90: Acute pancreatitis without necrosis or infection, unspecified) Known history of chronic pancreatitis to alcohol abuse [facility] November 09, 2023 with no acute abnormalities She also had an endoscopic nerve block by in [place] in November 17 Lipase trending down to 159 Continue n.p.o. except for ice chips Fluid hydration Pain control and antiemetics as needed Ordered: [facility] Hospital Care/Day Moderate 35 Minutes 00591 2. Leukocytosis (D72.829: Elevated white blood cell count, unspecified) Resolved; white count at 8.2 with no shift (was 15.3 on admission) Ordered: [facility] Hospital Care/Day Moderate 35 Minutes 52858 3. History of alcohol use (Z87.898: Personal history of other specified conditions) Clean and sober for 12 to 13 years Ordered: [facility] Hospital Care/Day Moderate 35 Minutes 95266 4. Smoker (F17.200: Nicotine dependence, unspecified, uncomplicated) Recommend cessation Ordered: [facility] Hospital Care/Day Moderate 35 Minutes [id number] Orders: Basic Metabolic Panel CBC w/ Indices [...] Tab, 25 mg= 1 tab(s), Oral, TID [facility] Comment on above: Result Comment: Elec [...] history of chronic pancreatitis to alcohol abuse [facility] November 09, 2023 with no acute abnormalities She also had an endoscopic nerve block by in [place] in November 17 Lipase trending down to [...] 04:55:00) Lymph Auto: 39.1 % (11/26/24 04:55:00) Dukes Auto: 9.7 % (11/26/24 04:55:00) Eos Auto: 1.7 % (11/26/24 04:55:00) Basophil Auto: 0.6 % (11/26/24 04:55:00) Neutro Absolute: 3.8 E9/L (11/26/24 04:55:00) Lymph Absolute: 3 E9/L (11/26/24 04:55:00) Dukes Absolute: 0.7 E9/L (11/26/24 04:55:00) Eos Absolute: [...] mg= 1 tab(s) (more content not included)... [facility] Comment on above: Result Comment: Elec [...] reports being hospitalized a month ago at [facility] for 4 days. She had a MRCP at that time which showed no acute abnormalities (I was able to review the report in outside records). She also follows with a GI doc in [place] and had an endoscopic nerve block on [...] 22:06:00) Lymph Auto: 18.2 % (11/24/24 22:06:00) Dukes Auto: 10.5 % (11/24/24 22:06:00) Eos Auto: 0.6 % (11/24/24 22:06:00) Basophil Auto: 0.6 % (11/24/24 22:06:00) Neutro Absolute: 10 E9/L High (11/24/24 22:06:00) Lymph Absolute: 2.6 E9/L (11/24/24 22:06:00) Dukes Absolute: 1.5 E9/L High (11/24/24 22:06:00) Eos [...] hx ETOH abuse. Had an MRCP at [facility] on 11/08/24 with no acute abnormalities present. Therefore did not feel further imaging needed at this time unless patient fails to improve as expected. Lipase 303 Ice Chips for now until vomiting resolved NS at 150 cc/hr Ordered Dilaudid IV prn pain and Zofran prn n/v s/p endoscopic nerve block by GI in [place] on 11/17. 2. Leukocytosis (D72.829: Elevated white [...] qualifying data Medicati (more content not included)... [facility] Comment on above: Result Comment: Elec [...] MATERIAL: Procedure Discharge Instructions REFERRAL (RECOMMENDATION): None [facility] 11-17-2024 Nurse Note AMBULATORY PATIENT EDUCATION [...] In Department: GASTROENTEROLOGY documented in this encounter [facility] 11-17-2024 Note Q3 Patient Name: Chioma Rainey Procedure Date: 11/17/2024 2:39 PM Date of : 1970 Admit Type: Outpatient Age: 54 Gender: Female Note Status: Finalized Attending MD: Josse Romo MD, [id number] Procedure: Upper EUS Indications: Celiac plexus block [...] Status: Finalized Attending MD: Josse Romo MD, [id number] Procedure: Upper EUS Indications: Celiac plexus block [...] 0 Note Initiated On: 11/17/2024 2:39 PM [facility] 11-17-2024 Nurse Note PRE OP LEARNING ASSESSMENT PROCEDURE/SURGERY: GI PROCEDURES: EGD and ESU READINESS TO LEARN COGNITIVE ABILITY: Alert and oriented MOTIVATION TO LEARN: Eager FAMILY SUPPORT: High - Very involved in pt care PATIENT LEARNS BEST BY: Individual Instruction Verbal Instruction FACTORS AFFECTING LEARNING: None PHYSICAL LIMITATIONS AFFECTING LEARNING: None Electronically Signed By: Colin Guzman RN In Department: GASTROENTEROLOGY [facility] 11-09-2024 History of Present illness Narrative Pt is leaving the floor at this time with family. Pt leaving AMA. Pt called out at this time stating they would like to leave AMA. Check Cashier to bedside. AMA forms reviewed and signed by pt. Check Cashier reviewed potential complications of leaving AMA as described on forms. IV removed. Pt is getting dressed. Family will be driving pt home. Patient was able to get some good sleep throughout the night post ativan. Patient was updated that patient's diet has increased to clear liquid diet. Patient is pleased. Patient denies any needs before poem writer leaving shift. Check Cashier spoke with Obinna MORALEZ regarding patient's anxiousness and anxiety attack earlier. Check Cashier informed NAOMY that patient was requesting something to at least help patient get some sleep. Obinna MORALEZ to put in a one time dose of IV ativan. Check Cashier came to bedside to administer night time medication and give prn pain medications. Patient is tearful, anxious and very upset at this time. Check Cashier spent a good 30 minutes at bedside [...] ready to just leave and go home. Check Cashier gave emotional support to patient, giving words of reassurance and understanding as well as expressed sympathy as well as solutions for patient. Check Cashier apologized to patient for not coming understanding what is going on. Check Cashier educated patient on pancreatitis breaking it down to the simplest of terms and what we are currently doing to help her situation. Check Cashier educated patient on the importance of bowel rest will help with patient's ongoing issue right now. Check Cashier explained the process of getting over her flare up and how it is going to take time and cannot happen overnight. Check Cashier also went over labs and broken them down to elementary school level terms so patient could understand the meaning as patient stated she was so confused on the number that were getting thrown around. Check Cashier continued to let patient vent more and poem writer answered patient's questions as best as poem writer was able to within scope. Check Cashier instructed to patient that poem writer will talk to Obinna MORALEZ about getting something for sleep as patient states I just want to stop hurting and I just want to be able to sleep. After everything and the conversation had ended, patient had felt more better and was no more talking about leaving AMA. Check Cashier will speak to Obinna MORALEZ and update [...] none Nutrition status: at risk for malnutrition Fine Grade Operator consult initiated I/O Daily weight Monitor Daily [...] No fluid accumulation (11/07/241041) Chronic Illness - Butcher All Round Strength: Not Performed (11/07/241041) Chronic Illness - Malnutrition Score: 0 (11/07/241041) Malnutrition Status: At risk for malnutrition (11/07/241041) I agree with the dietitian's malnutrition assessment. Medical Nutrition Therapy: continue current nutrition therapy [facility] Prophylaxis: DVT: SCD's Stress Ulcer: H2 [place] Disposition: Shared decision making: All test results, treatment options and disposition options were discussed with the patient today Social determinants of health that may impact management: none Code status: Full Code Disposition: Discharge plan is pending [facility] Advanced Care Planning documentation: [x] [...] the patient's medical record. [DOES NOT SATISFY [facility] PERFORMANCE] ALEA Bowman CNP , ALEA HISTOTECHNOLOGIST-C Hospitalist Medicine 11/08/2024, 8:00 AM Cosigned by Raji Gilliam MD at 11/08/2024 12:47 PM EDT Associated attestation - Raji Gilliam MD - 11/08/2024 12:47 PM EDT Raji Gilliam M.D. Internal Medicine PA/HISTOTECHNOLOGIST Attestation Note Patient: Chioma Arciniega Date of Admission: 11/06/2024 6:24 PM Date of Evaluation: 11/08/2024 I personally evaluated and examined the patient legw-fa-yspr in conjunction with the PA/HISTOTECHNOLOGIST and agree with the management and dispostition of the patient. Please see the PA/HISTOTECHNOLOGIST's note for full details. My garcia findings [...] risk for malnutrition due to current illness Fine Grade Operator consult appreciated Monitor daily weights Monitor daily I/O's Medication monitoring / High risk medications: Parenteral administration of controlled substance(s) requiring close monitoring Disposition: Discharge plan is pending SHARED APC VISIT, PHYSICIAN ATTESTATION: Sxyp-uz-hpdm I personally performed a substantive part of [...] Valdovinos MD , MJayla. 11/08/2024 12:32 PM Check Cashier to bedside to complete morning assessment. Upon entry to room, pt resting in bed, respirations even while on room air. Vitals obtained and assessment completed, see flow sheet for details. Call light in reach. Care ongoing. Pt called out for assistance with IV. New transparent dressing placed. IV is still patent, with good blood return. IV fluids continued as ordered. Care on-going. Check Cashier at bedside for shift assessment. PT A&O [...] mass loss Fluid Accumulation: No fluid accumulation Butcher All Round Strength: Not Performed Nutrition Assessment: Inadequate oral intakes r/t altered GI function aeb NPO, nausea, GI abnormality lipase 285. Pt with recurrent pancreatitis. Follows GI in [place] and [place]. Pt states she has been dealing with this for 16 years, declined diet education. c/o continued nausea. Needs easy to chew low fat diet when advanced. Nutrition Related Findings: active bowel sounds, no edema Wound Type: None Current Nutrition Intake & Therapies: Average Meal Intake: NPO Average Supplements Intake: NPO Diet NPO Anthropometric Measures: Height: 157.5 cm (5' 2 ) [place] Body Weight (IBW): 110 lbs (50 kg) [...] Used for Energy Requirements: Current Energy (kcal/day): 3602-8299 (25-28/kg) Weight Used for Protein Requirements: Current [...] to determine [address]ANINE [address], ERIN Contact: [phone] Medicated for nausea and pain at this [...] in red patient folder Pt arrived to [facility] via wheelchair from ED. Pt able [...] care ongoing. documented in this encounter [facility] 11-02-2024 Instructions Lindsey Willard APRN.SPECIAL NEEDS CAREGIVER - 11/02/2024 1:26 PM EDT We discussed [...] This has been sent to your pharmacy ([facility] in [place], [place]) with a 90-day supply and 3 [...] Treatment of pancreatic exocrine deficiency. World J. Surg.2003;27(11):4716-2148. 5. [place] [employer] Association. Diagnosis and classification of diabetes [...] a prospective multicenter study. Dig Dis Sci. 2003;48(9):1936-7964. 9. Cystic Fibrosis Foundation. Use of pancreatic enzyme supplements for patietns with cystic fibrosis in the context of fibrosing colonopathy. https://www.cff.org/uploadedFiles/ Content/For_Caregivers/Clinical_Ca re_Guidelines/Nutrition_and_GI_Cli nical_Care_Guidelines/Consensus-St qfeolrm-Vojdhwuquh-Korwju-Replacem .pdf. Accessed February 13, 2017. 10. Danya Cotto. Diagnosis and treatment of pancreatic exocrine insufficiency. World J Gastroenterol. 2013;19(42):8599-8546. 11. Felipe WOODARD, Bradford J, Ria M, [...] snack: When are you taking your enzymes? ([place] one) Before Meal During Meal After Meal During the past two weeks, how often have you: Had frequent diarrhea? Almost Always Often Sometimes Never Had greasy stools? Almost Always Often Sometimes Never Had loose stools? Almost Always Often Sometimes Never [place] bloated? Almost Always Often Sometimes Never Had [...] 6 or more documented in this encounter [facility] 11-02-2024 Note HNO ID: [id number] Author: LINDSEY WILLARD APRN.CNP Service: ? Author [...] She was seen 2 days ago at [facility] and had a lipase of 58. I do not think she needs another workup at this point. She states she has an appointment with a intranet specialist on Thursday. I will get her some [...] patient to home. (more content not included)... [facility] 11-02-2024 History of Present illness Narrative [...] She was seen 2 days ago at [facility] and had a lipase of 58. I do not think she needs another workup at this point. She states she has an appointment with a intranet specialist on Thursday. I will get her some [...] health. I spent more than 30 minutes jtiv-vv-tndi with the patient and over half the time was devoted to counseling and/or coordination of care. Recording using ambient [place] [employer] software for draft documentation of the visit was discussed with the patient/authorized personal service representative; all questions welcomed and answered. Patient/authorized personal service representative agreed to proceed Lindsey Willard APRN.SPECIAL NEEDS CAREGIVER documented in this encounter [facility] 10-28-2024 Radiology Diagnostic study note [facility] Main [place] [address] [place] [address] CT Scan Report Signed Patient: Chioma Arciniega MR#: [id number] : 1970 Acct:[id number] Age/Sex: 54 / F ADM Date: 5 Loc: ER Room: Type: [facility] ER Attending Dr: Copies to: Andrew Ponce [...] Mendieta M.D. 10/28/2024 4:38 PM Dictation Location: lettrsSkyword Transcribed By: RICA 10/28/24 1638 Dictated By: Cruzito Mendieta DO 10/28/24 1636 Signed By: 10/28/24 1638 [facility] 10-28-2024 Hospital Discharge instructions Additional Instructions It is very important that you follow up with your primary care provider in the next 2-3 days unless instructed to do otherwise. If you do not have a primary care provider, you can contact [facility] and ask about being established for primary care services. If you require specialist follow up, such as with an orthopedic physician, hvac engineering technician, urologist, or other medical specialty, you should [...] should first take Tylenol or ibuprofen available mknt-oio-tkddzdm. Medications, if prescribed to treat pain from [...] or if you have any other concerns [facility] Work Phone: 10-24-2024 Note ED Patient Education [...] urine pale yellow. General instructions ??? Take gala-kml-fztvxqn and prescription medicines only as told by your health care provider. These include vitamin supplements. ??? Ask your health care provider if the medicine prescribed to you: ? Requires you to avoid driving or using machinery. ? Can cause constipation. You may need to take these actions to prevent or treat constipation: ? Take ygbq-fpf-fieykdz or prescription medicines. ? Eat foods that are high in fiber, such as beans, whole grains, and fresh fruits and vegetables. ? Limit foods that are high in fat and processed sugars, such as fried or sweet foods. ??? Do not use any products that contain nicotine or tobacco. These (more content not included)... [facility] 10-19-2024 Radiology Diagnostic study note [facility] Main [place] [address] [place], [place] [id number] CT Scan Report Signed Patient: Chioma Arciniega MR#: [id number] : 1970 Acct:[id number] Age/Sex: 54 / F ADM Date: 5 [...] Mendieta M.D. 10/19/2024 10:12 PM Dictation Location: [place] [address] Transcribed By: [facility] 10/19/242211 Dictated By: Cruzito Mendieta DO 10/19/242203 Signed By: 10/19/242211 [facility] 10-09-2024 Note ED Patient Education Note [...] urine pale yellow. General instructions ??? Take juzd-lyo-qhkdffq and prescription medicines only as told by your health care provider. These include vitamin supplements. ??? Ask your health care provider if the medicine prescribed to you: ? Requires you to avoid driving or using machinery. ? Can cause constipation. You may need to take these actions to prevent or treat constipation: ? Take wtut-itg-wfkdqui or prescription medicines. ? Eat foods that are high in fiber, such as beans, whole grains, and fresh fruits and vegetables. ? Limit foods that are high in fat and processed sugars, such as fried or sweet foods. ??? Do not use any products that contain nicotine or tobacco. These (more content not included)... [facility] 10-03-2024 Note ED Patient Education Note [...] urine pale yellow. General instructions ??? Take lfan-rpb-fobtdyt and prescription medicines only as told by your health care provider. These include vitamin supplements. ??? Ask your health care provider if the medicine prescribed to you: ? Requires you to avoid driving or using machinery. ? Can cause constipation. You may need to take these actions to prevent or treat constipation: ? Take xfxe-yny-apstmtf or prescription medicines. ? Eat foods that are high in fiber, such as beans, whole grains, and fresh fruits and vegetables. ? Limit foods that are high in fat and processed sugars, such as fried or sweet foods. ??? Do not use any products that contain nicotine or tobacco. These (more content not included)... [facility] 09-27-2024 Hospital Discharge instructions Tasha Zamora MD [...] be sent through Care Everywhere.Nausea and Vomiting (Albanian)documented in this encounter [facility] 09-20-2024 Hospital Discharge instructions Tasha Zamora MD [...] attachments cannot be sent through Care Everywhere.Pancreatitis (Albanian)Pancreatitis: Chronic Diet (Albanian)documented in this encounter [facility] 05-31-[address] ABDOMEN [...] London Hurd DO on 05/31/2024 3:21 PM [facility] 04-07-2024 Hospital Discharge instructions Peter Escalera MD - 04/07/2024 6:10 PM EST Please start a clear liquid diet today and tomorrow, advance as tolerated, avoid alcohol. Follow-up with your GI doctor tomorrow for further recommendations. The following attachments cannot be sent through Care Everywhere.Pancreatitis (Albanian)Clear Liquid Diet: General Info (Albanian)documented in this encounter [facility] 01-19-2024 Nurse Surgical operation [...] unit via wheelchair w/ family assistance. [facility] 01-19-2024 Nurse Note Patient mets discharge [...] family assistance. documented in this encounter [facility] 01-19-2024 History and physical note ENDOSCOPIC PREPROCEDURE HISTORY AND PHYSICAL HISTORY OF PRESENT ILLNESS: Chioma Rainey is a 53 y.o. female seen in the pre-procedure area at [facility]. The indication for endoscopic [...] W/ ULTRASOUND N/A 04/23/2016 Laterality: N/A; Surgeon: Pnieda Troy MD; Location: [facility] EGD W/ [...] 50,000 Units, Oral, WEEKLY Pancreatic enzymes (Creon) 02243-[address]-034559 units Cap DR Particles capsule 72,000 Units, Oral, 2 TIMES DAILY WITH MEALS Current Outpatient Medications: Ergocalciferol 1.25 MG (23157 UT) capsule, Take 1 capsule by mouth once a week., Disp: 8 capsule, Rfl: 0 Pancreatic enzymes (Creon) [id number] units Cap DR Particles capsule, Take 3 [...] using Monitored Anesthesia Care. Daniel Christiansen MD [facility] Work Phone: 01-19-2024 History and physical note ENDOSCOPIC PREPROCEDURE HISTORY AND PHYSICAL HISTORY OF PRESENT ILLNESS: Chioma Rainey is a 53 y.o. female seen in the pre-procedure area at [facility]. The indication for endoscopic [...] 50,000 Units, Oral, WEEKLY Pancreatic enzymes (Creon) [id number] units Cap DR Particles capsule 72,000 Units, Oral, 2 TIMES DAILY WITH MEALS Current Outpatient Medications: Ergocalciferol 1.25 MG (61172 UT) capsule, Take 1 capsule by mouth once a week., Disp: 8 capsule, Rfl: 0 Pancreatic enzymes (Creon) 45522-82[address]-002743 units Cap DR Particles capsule, Take 3 [...] Daniel Christiansen MD documented in this encounter [facility] 01-07-2024 Hospital Discharge instructions Dayday Jensen APRN - CNP - 01/07/2024 5:08 PM EDT Increase fluids. [place] diet Continue home medication The following attachments cannot be sent through Care Everywhere.Abdominal Pain (Albanian)Pancreatitis (Albanian)Pancreatitis: Chronic Diet (Albanian)documented in this encounter [facility] 09-08-2023 History and physical note ENDOSCOPIC PREPROCEDURE HISTORY AND PHYSICAL HISTORY OF PRESENT ILLNESS: Chioma Rainey is a 53 y.o. female seen in the pre-procedure area at [facility]. The indication for endoscopic evaluation includes: Alcohol-induced chronic pancreatitis PAST MEDICAL HISTORY: Past Medical History: Diagnosis Date Anemia Depression H. pylori infection Neutrophilic leukocytosis Pancreatitis SURGICAL HISTORY: Past Surgical History: Procedure Laterality Date EGD W/ ULTRASOUND N/A 12/01/2019 Laterality: N/A; Surgeon: Sabrina Dee MD, MPH; Location: [facility] EGD W/ ULTRASOUND N/A 04/23/2016 Laterality: N/A; Surgeon: Pineda Troy MD; Location: [facility] EGD W/ ULTRASOUND N/A [...] 50,000 Units, Oral, WEEKLY Pancreatic enzymes (Creon) 65453-[address] units [address] Particles capsule 72,000 Units, Oral, 2 TIMES DAILY WITH MEALS Current Outpatient Medications: Ergocalciferol 1.25 MG (12692 UT) capsule, Take 1 capsule by mouth once a week., Disp: 8 capsule, Rfl: 0 Pancreatic enzymes (Creon) 29950-[address] units [address] Particles capsule, Take 3 [...] Monitored Anesthesia Care. Sabrina Dee MD, MPH [facility] 09-08-2023 History and physical note ENDOSCOPIC PREPROCEDURE HISTORY AND PHYSICAL HISTORY OF PRESENT ILLNESS: Chimoa Rainey is a 53 y.o. female seen in the pre-procedure area at [facility]. The indication for endoscopic evaluation includes: Alcohol-induced chronic pancreatitis PAST MEDICAL HISTORY: Past Medical History: Diagnosis Date Anemia Depression H. pylori infection Neutrophilic leukocytosis Pancreatitis SURGICAL HISTORY: Past Surgical History: Procedure Laterality Date EGD W/ ULTRASOUND N/A 12/01/2019 Laterality: N/A; Surgeon: Sabrina Dee MD, MPH; Location: [facility] EGD W/ ULTRASOUND N/A 04/23/2016 Laterality: N/A; Surgeon: Pineda Troy MD; Location: [facility] EGD W/ ULTRASOUND N/A 01/23/2016 Laterality: N/A; Surgeon: Pineda Troy MD; Location: [facility] CHANGE TUBE GASTROSTOMY N/A 08/20/2015 Laterality: N/A; Surgeon: Yanni Alonzo MD; Location: [facility] EGD DIAGNOSTIC N/A 06/25/2015 Laterality: N/A; Surgeon: Pineda Troy MD; Location: [facility] EGD W/ PLACEMENT OR REPLACEMENT PEG N/A 06/15/2015 Laterality: N/A; Surgeon: Curry Newell MD; [facility] EGD W/ INSERTION TUBE OR CATHETER N/A 06/13/2015 Laterality: N/A; Surgeon: Jose Ty MD; [facility] EGD W/ ULTRASOUND N/A 02/14/2015 Laterality: N/A; Surgeon: Pineda Troy MD; Location: [facility] CHOLECYSTECTOMY CHOLECYSTECTOMY, LAPAROSCOPIC HYSTERECTOMY MEDICATIONS: Current Outpatient Medications Medication Instructions Ergocalciferol (VITAMIN D2) 50,000 Units, Oral, WEEKLY Pancreatic enzymes (Creon) 37322-[address] Particles capsule 72,000 Units, Oral, 2 TIMES DAILY WITH MEALS Current Outpatient Medications: Ergocalciferol 1.25 MG (15190 UT) capsule, Take 1 capsule by mouth once a week., Disp: 8 capsule, Rfl: 0 Pancreatic enzymes (Creon) 64495-[address] Particles capsule, Take 3 [...] Dee MD, MPH documented in this encounter [facility] 09-08-2023 Miscellaneous Notes RN and MD educated pt on DC instructions, pt verbalized understanding. IV removed per protocol. documented in this encounter [facility] 09-08-2023 Nurse Note Stefano educated pt on DC instructions, pt verbalized understanding. IV removed per protocol. [facility] 05-22-2023 Miscellaneous Notes Called patient to remind them to bring their most current copy of their medication list with them to their appt. Patient verbalizes understanding. documented in this encounter [facility] 05-22-2023 Telephone encounter Note Called patient to remind them to bring their most current copy of their medication list with them to their appt. Patient verbalizes understanding. [facility] 05-11-2023 History of Present illness Narrative This Business Enterprise Officer verified the patients name and date of [...] for pain management 5. Prior evaluation at [facility] for TPIAT and was not a [...] (human immunodeficiency virus infection), Hyperlipidemia, Hyperthyroidism, Hypothyroidism, OR (myocardial infarction), Migraine, PEGGY (obstructive sleep apnea), [...] includes the following prescription(s): Pancreatic enzymes (Creon) 57706-[address] units [address] Particles capsule and Ergocalciferol 1.25 MG (98917 UT) capsule. Allergies: She is allergic to [...] Hepatology, and Nutrition documented in this encounter [facility] 05-11-2023 Instructions Sabrina Dee MD, MPH - [...] celiac plexus block documented in this encounter [facility] 04-16-2023 Miscellaneous Notes Pt called requesting to schedule a new patient appt. Referral is in media from [facility] [employer]. A good phone number to reach the pt: [phone] Referral in media was to [facility] so pt has no referral to nephrology. LM informing pt she would need to have her referring provider fax us over a referral and then I could schedule her a new pt appt. documented in this encounter [facility] 04-16-2023 Telephone encounter Note Pt called requesting to schedule a new patient appt. Referral is in media from [facility] [employer] tiffany. A good phone number to reach the pt: [phone] [email or web address] encounter Note Referral in media was to [facility] so pt has no referral to nephrology. LM informing pt she would need to have her referring provider fax us over a referral and then I could schedule her a new pt appt. [email or web address]23 Miscellaneous Notes LMOM for the patient to call and schedule their new pt appointment with [facility]. [facility] [employer] [facility] 04-16-2023 Telephone encounter Note LMOM for the patient to call and schedule their new pt appointment with [facility]. [facility] 08-12-2022 History and physical note ENDOSCOPIC PREPROCEDURE HISTORY AND PHYSICAL HISTORY OF PRESENT ILLNESS: Chioma Rainey is a 52 y.o. female [facility]. The indication for endoscopic [...] 20 mg, Oral, DAILY Pancreatic enzymes (Creon) 38639-46[address] units [address] Particles capsule 48,000 Units, Oral, 3 TIMES DAILY WITH MEALS Current Outpatient Medications: omeprazole [address] capsule, Take 1 capsule by mouth daily., Disp: 30 capsule, Rfl: 6 amitriptyline 10 MG tablet, Take 2.5 tablets by mouth at bedtime., Disp: 30 tablet, Rfl: 11 ergocalciferol 1.25 MG (15714 UT) capsule, Take 1 capsule by mouth once a week for 8 doses., Disp: 8 capsule, Rfl: 0 Pancreatic enzymes (Creon) 68758-[address] units [address] Particles capsule, Take 2 [...] Monitored Anesthesia Care. Sabrina Dee MD, MPH [facility] 08-12-2022 History and physical note ENDOSCOPIC PREPROCEDURE HISTORY AND PHYSICAL HISTORY OF PRESENT ILLNESS: Chioma Rainey is a 52 y.o. female seen in the pre-procedure area at [facility]. The indication for endoscopic evaluation includes: Alcohol-induced chronic pancreatitis PAST MEDICAL HISTORY: Past Medical History: Diagnosis Date Anemia Depression H. pylori infection Neutrophilic leukocytosis Pancreatitis SURGICAL HISTORY: Past Surgical History: Procedure Laterality Date EGD W/ ULTRASOUND N/A 12/01/2019 Laterality: N/A; Surgeon: Sabrina Dee MD, MPH; Location: [facility] EGD W/ ULTRASOUND N/A 04/23/2016 Laterality: N/A; Surgeon: Pineda Troy MD; [facility]GD W/ ULTRASOUND N/A 01/23/2016 Laterality: N/A; Surgeon: Pineda Troy MD; Location: [facility] CHANGE TUBE GASTROSTOMY N/A 08/20/2015 Laterality: N/A; Surgeon: Yanni Alonzo MD; Location: [facility] EGD DIAGNOSTIC N/A 06/25/2015 Laterality: N/A; Surgeon: Pineda Troy MD; Location: [facility] EGD W/ PLACEMENT OR REPLACEMENT PEG N/A 06/15/2015 Laterality: N/A; Surgeon: Curry Newell MD; [facility] EGD W/ INSERTION TUBE OR CATHETER N/A 06/13/2015 Laterality: N/A; Surgeon: Jose Ty MD; Location: [facility] EGD W/ ULTRASOUND N/A 02/14/2015 Laterality: N/A; Surgeon: Pineda Troy MD; [facility] CHOLECYSTECTOMY CHOLECYSTECTOMY, LAPAROSCOPIC HYSTERECTOMY MEDICATIONS: Current Outpatient Medications Medication Instructions Amitriptyline (ELAVIL) 25 mg, Oral, DAILY AT BEDTIME Ergocalciferol (VITAMIN D2) 50,000 Units, Oral, WEEKLY omeprazole (PRILOSEC) 20 mg, Oral, DAILY Pancreatic enzymes (Creon) [address]57-[address] units [address] Particles capsule 48,000 Units, Oral, 3 TIMES DAILY WITH MEALS Current Outpatient Medications: omeprazole [address] capsule, Take 1 capsule by mouth daily., Disp: 30 capsule, Rfl: 6 amitriptyline 10 MG tablet, Take 2.5 tablets by mouth at bedtime., Disp: 30 tablet, Rfl: 11 ergocalciferol 1.25 MG (70418 UT) capsule, Take 1 capsule by mouth once a week for 8 doses., Disp: 8 capsule, Rfl: 0 Pancreatic enzymes (Creon) 91239-[address] Particles capsule, Take 2 [...] paperwork and reviewed per MD and nurse. Head Esthetician available.Diet and restrictions reviewed as well. Venous access removed no complications noted. Ok to d/c Anesthesia and procedural MD. documented in this encounter [facility] 08-12-2022 Nurse Surgical operation note PT Given discharge paperwork and reviewed per MD and nurse. Head Esthetician available.Diet and restrictions reviewed as well. Venous access removed no complications noted. Ok to d/c Anesthesia and procedural . [facility] 06-16-2022 History of Present illness Narrative This Business Enterprise Officer verified the patients name and date of [...] for pain management 5. Prior evaluation at [facility] for TPIAT and was not a candidate 6. Last CT was at [facility] in 05/2019: No calcification in the [...] (human immunodeficiency virus infection), Hyperlipidemia, Hyperthyroidism, Hypothyroidism, OR (myocardial infarction), Migraine, PEGGY (obstructive sleep apnea), [...] amitriptyline 10 MG tablet, ergocalciferol 1.25 MG (11323 UT) capsule, and Pancreatic enzymes (Creon) [address] Particles capsule. Allergies: She [...] Hepatology, and Nutrition documented in this encounter [facility] 06-16-2022 Instructions Sabrina Dee MD, MPH - 06/16/2022 11:00 AM EDT Schedule EUS celiac plexus block; EGD dilation Referral to endocrinology; appointment to be scheduled Return to clinic in Mar 2023 Smoking cessation Vitamin D 2000 units daily Calcium supplement 1 gram daily Omeprazole (Prilosec) 20mg daily, take at least 30 mins before dinner documented in this encounter [facility] 01-28-2022 Miscellaneous Notes Attending physician in room speaking with patient and family on results. Attending physician ok for discharge. Pt ambulated unassisted with steady gait and balance. IV removed and discharge instructions given with verbal ok by patient of understanding. Pt discharged via w/c with racing car driver from unit. Dr dee aware patient ready for results Updated dr goins on patient pain and received new orders documented in this encounter [facility] 01-28-2022 Note Formatting of this n ote might be different from the original. Attending physician in room speaking with patient and family on results. Attending physician ok for discharge. Pt ambulated unassisted with steady gait and balance. IV removed and discharge instructions given with verbal ok by patient of understanding. Pt discharged via w/c with racing car driver from unit. [facility] 01-28-2022 Note Formatting of this n ote might be different from the original. Dr dee aware patient ready for results [facility] 01-28-2022 Note Formatting of this n ote might be different from the original. Updated dr goins on patient pain and received new orders [facility] 01-28-2022 History and physical note ENDOSCOPIC PREPROCEDURE HISTORY AND PHYSICAL HISTORY OF PRESENT ILLNESS: Chioma Rainey is a 51 y.o. female seen in the preoprocedure area at [facility]. The indication for endoscopic [...] 50,000 Units, Oral, WEEKLY Pancreatic enzymes (Creon) [address] Particles capsule 48,000 Units, Oral, 3 TIMES DAILY WITH MEALS Current Outpatient Medications: amitriptyline 10 MG tablet, Take 2.5 tablets by mouth at bedtime., Disp: 30 tablet, Rfl: 11 Pancreatic enzymes (Creon) 27806-[address] Particles capsule, Take 2 capsules by mouth 3 times daily with meals., Disp: 180 capsule, Rfl: 0 ergocalciferol 1.25 MG (55563 UT) capsule, Take 1 capsule by mouth [...] Monitored Anesthesia Care. Sabrina Dee MD, MPH [facility] 01-28-2022 History and physical note ENDOSCOPIC PREPROCEDURE HISTORY AND PHYSICAL HISTORY OF PRESENT ILLNESS: Chioma Rainey is a 51 y.o. female seen in the preoprocedure area at [facility]. The indication for endoscopic [...] 50,000 Units, Oral, WEEKLY Pancreatic enzymes (Creon) [address] Particles capsule 48,000 Units, Oral, 3 TIMES DAILY WITH MEALS Current Outpatient Medications: amitriptyline 10 MG tablet, Take 2.5 tablets by mouth at bedtime., Disp: 30 tablet, Rfl: 11 Pancreatic enzymes (Creon) [address] Particles capsule, Take 2 capsules by mouth 3 times daily with meals., Disp: 180 capsule, Rfl: 0 ergocalciferol 1.25 MG (31195 UT) capsule, Take 1 capsule by mouth [...] Dee MD, MPH documented in this encounter [facility] 12-16-2021 History of Present illness Narrative This [...] for pain management 5. Prior evaluation at [facility] for TPIAT and was not a candidate 6. Last CT was at [facility] in 05/2019: No calcification in the [...] (human immunodeficiency virus infection), Hyperlipidemia, Hyperthyroidism, Hypothyroidism, OR (myocardial infarction), Migraine, PEGGY (obstructive sleep apnea), [...] 10 MG tablet and Pancreatic enzymes (Creon) [address] Particles capsule. Allergies: She [...] in 6 months documented in this encounter [facility] 12-16-2021 Instructions Sabrina Dee MD, MPH - 12/16/2021 11:30 AM EDT Schedule DEXA scan Schedule colonoscopy Schedule EUS Start vitamin D 1,000 units daily. Start calcium supplements 1g daily RTC in 6 months documented in this encounter [facility] 03-19-2021 Evaluation note Encounter Date Diagnosis Assessment [...] Patient care instructions given in writting by [facility] Care At Home document [employer] Other 08-01-2020 History general Narrative - Reported* Type Description Date Medical History chronic pancreatitis Medical History chronic pain Medical History former alcoholic Surgical History [facility]- [facility] Surgical History GALLBLADDER Surgical History COL[facility] Hospitalization History see above [employer] Other Evaluation noteNo assessment information available [facility] Work Phone: Evaluerkmm note* Diagnosis Recurrent acute pancreatitis- Primary Acute [...] malignant neoplasms, colon [facility] Diagnosis Osteoporosis without current pathological fracture, unspecified osteoporosis type- Primary Alcohol-induced chronic pancreatitis Chronic pancreatitis [facility] Diagnosis Alcohol-induced chronic pancreatitis Chronic pancreatitis [facility]* Diagnosis Alcohol-induced chronic pancreatitis- Primary Chronic pancreatitis Encounter for screening for malignant neoplasm of colon Special screening for malignant neoplasms, colon Other osteoporosis without current pathological fracture Epigastric pain Abdominal pain, epigastric Smoking Tobacco use disorder Gastroesophageal reflux disease without esophagitis Esophageal reflux [facility]* Diagnosis Alcohol-induced chronic pancreatitis Chronic pancreatitis documented [facility]* Diagnosis Alcohol-induced chronic pancreatitis Chronic pancreatitis [facility]* Diagnosis Hypokalemia- Primary Hypopotassemia Acute recurrent pancreatitis Acute pancreatitis [facility]* Diagnosis Acute on chronic pancreatitis (HCC)- Primary Abdominal pain, epigastric [facility]* Diagnosis Acute pancreatitis without infection or necrosis, unspecified pancreatitis type- Primary Acute recurrent pancreatitis Acute pancreatitis documented in this encounter [facility]* Diagnosis Abdominal pain, epigastric- Primary documented in this encounter [facility]* Diagnosis Other chronic pancreatitis (HCC)- Primary documented in this encounter [facility]* Diagnosis Abdominal pain, epigastric- Primary Nausea and vomiting, unspecified vomiting type documented in this encounter [facility]* Diagnosis Chronic pancreatitis, unspecified pancreatitis type (HCC)- Primary Exocrine pancreatic insufficiency (HCC) Other specified disease of pancreas Epigastric pain Abdominal pain, epigastric Loose stools Abnormal feces Heartburn Tobacco use Tobacco use disorder documented in this encounter [facility] note* Diagnosis Acute on chronic pancreatitis (HCC)- Primary Acute pancreatitis, unspecified complication status, unspecified pancreatitis type documented in this encounter [facility]* Diagnosis Chronic pancreatitis, unspecified pancreatitis type (HCC) Epigastric pain Abdominal pain, epigastric Loose stools Abnormal feces Heartburn Exocrine pancreatic insufficiency (HCC) Other specified disease of pancreas documented in this encounter [facility] Discharge instructions Additional Instructions Fluids Phenergan if needed for nausea vomiting Bentyl as needed for abdominal pain Follow-up with your GI specialist call Thursday for appointment Return here if any problems persist or worsen [facility] Work Phone: Hospital Discharge instructions Additional Instructions Clear with diet today and advance as tolerated Push fluids Percocet if needed for severe pain Zofran or Phenergan if needed for nausea vomiting Keep your doctor's appointment tomorrow as planned Return here if you develop any increased pain, vomiting unable to be controlled, fevers, chills or any other concern[facility] Work Phone: Hospital Discharge instructions Additional Instructions Follow-up with your primary care doctor Return to ED if develop worsening symptoms or concerns[facility] Work Phone: Hospital Discharge instructions Additional Instructions Follow-up with your private physician as your calcium was slightly elevated Return if symptoms are worse Lots of fluids/no alcoholUk Healthcare Work Phone: Hospital Discharge instructions* Attachments The following attachments cannot be sent through Care Everywhere. * Clear Liquid Diet: General Info (Albanian) [facility]* Attachments The following attachments cannot be sent through Care Everywhere. * Abdominal Pain (Albanian) [facility] Additional Instructions Clear liquid diet and then advance as tolerated Avoid any spicy, hot, fried foods Zofran for nausea vomiting Bern if needed for severe pain Follow-up with your GI specialist call tomorrow for appointment Return here if any problems persist or worsen[facility] Work Phone: Hospital Discharge instructions* Attachments The following attachments cannot be sent through Care Everywhere. * Pancreatitis (Albanian) documented in this encounterBon [facility] CampusInstructionsNot on file documented in this encounterSelect [facility] [employer] SystemInstructionsNot on file documented in this encounterProMem[facility] SystemInstructionsNot on file documented in this encounterBerger Hospital SystemReason for referral (narrative)No reason for referral information availableUk [facility] Work Phone: Reason for visit Narrative* Outpatient Procedure (Routine) - Closed Specialty Diagnoses / Procedures Referred By Zia t Referred To Contact [facility] Diagnoses Chronic pancreatitis, unspecified pancreatitis type (HCC) Epigastric pain Loose stools Heartburn Exocrine pancreatic insufficiency (HCC) Procedures EGD - THERAPEUTIC, EUS, OR TUBE INTERVENTIONS EGD TRANSORAL BIOPSY SINGLE/MULTIPLE Lindsey Willard APRN.SPECIAL NEEDS CAREGIVER [address] [place] [address] Phone: tel: fax: [facility] [address] [place] [address] Referral ID Status Reason Start Date Expiration Date V isits Requested Visits Authorized [id number] Closed Auto-Generate d Referral 11/02/2024 11/02/2025 1 1 [facility] Discharge Instructions * Jose Brown PA-C [...] Log into your personal health record on [email or web address] and enter E907 in the Education box to learn more about Abdominal Pain: Care Instructions. Current as of: August 03, 2015 Content Version: 11.2 2658-8220 [employer]. Care instructions adapted under license by your healthcare professional. If you have questions about a medical condition or this instruction, always ask your healthcare professional. [employer] disclaims any warranty or liability for your [...] Log into your personal health record on [email or web address] Matrix and enter H591 in the Education box to learn more about Nausea and Vomiting: Care Instructions. Current as of: August 03, 2015 Content Version: 11.2 9510-0309 [employer]. Care instructions adapted under license by your healthcare professional. If you have questions about a medical condition or this instruction, always ask your healthcare professional. [employer] disclaims any warranty or liability for your use of this information. Please review regarding your visit: Please note that your blood pressure during this ER visit was above 120/80 mmHg. YOUR BP READING WAS: 111/88 The [place] Heart Association (AHA) defines a normal blood [...] review at your convenience for more information: http://[email or web address].org/HEARTORG/Conditions/HighBloodPressure/Lipk-Osaiy-Pvigeijm-o [email or web address] in this encounter* Discharge Instr - Other Orders - Poncho Sparks RN - 05/15/2017 1:20 PM EST Patient voices desire to leave hospital AMA. IV removed. Patient is ambulatory in care of spouse. [facility] hospitalist notified. in this encounter* Lavern Khan CNP - 08/24/2017 Seek medical attention if you have worsening symptoms or other concerns. Please follow up with your family doctor or one of your choosing. You may find a provider through the [facility] Physician Referral Service by calling [phone] ([phone]) or by visiting [email or web address] Chioma, Thank You for choosing [facility]! The following attachments cannot be sent through Care Everywhere. * Nausea and Vomiting (Albanian) * Gastroenteritis (Albanian) * Diarrhea (Albanian) in this encounter The following attachments cannot be sent through Care Everywhere. * Pancreatitis (Albanian) in this encounter* Instructions* Laura Meyer RN - 08/25/2019 Patient Instructions: Activity: activity as tolerated Diet: encourage fluids GI specialist in 2 weeks. * Attachments The following attachments cannot be sent through Care Everywhere. * Pancreatitis: Chronic Diet (Albanian) * Pancreatitis (Albanian) documented in this encounter Assessments Diagnosis Epigastric [...] FoundDocuments on File Type Date Recorded Patient Manager Infusion Expl anation Advance Directives and Living Will Power of Unit Coordinator Latest Code Status on File Code Status Date Activated Date Inactivated Comments Full Code 08/22/2019 4:27 PM Documents on File Type Date Recorded Patient Manager Infusion Expl anation Advance Directives and Livin g [...] Documents on File Type Date Recorded Patient Manager Infusion Expl anation ACP-Advance Directive ACP-Power of Unit Coordinator Latest Code Status on File Code [...] toradol is contraindicated. Called Dr. Hughes back, poem writer explained that patient is tolerating dilaudid. Dr. Hughes ordered dose of dilaudid increased from 0.25 mg to 0.5 mg q4 hrs PRN. * Ladan Stearns RN - 08/24/2019 1:27 PM EDT Patient walking in hallway at this time. * Ladan Stearns RN - 08/24/2019 9:14 AM EDT Check Cashier to patients bedside at this time to reassess pain. Patient sitting in chair, appears restless and is tearful. Patient states Dilaudid did not help the pain, states there is nothing poem writer can do as she deals with [...] Scheduled for EGD in September with her Client Account Assistant at [facility] Discharge Planning -- Home when stable Carley Camara APRN, HISTOTECHNOLOGIST-C Associated attestation - Rajeev Cantor MD - 08/24/2019 5:30 PM EDT Attending Supervising Physician s Attestation Statement I have personally evaluated and examined the patient [id number] in conjunction with the nurse practitioner. I [...] Examined and Reviewed plan of care with HISTOTECHNOLOGIST. Directions and discussion about care and plans. [...] [place] RN - 08/23/2019 4:40 PM EDT Check Cashier contacted Dr. Cantor regarding update that patient [...] he would not give order for Benedryl. Check Cashier let nurse know that if patient's c/o ithcing and redness doesn't improve in an hour, that poem writer will be calling back to update physician. * Brie Birmingham RN - 08/23/2019 3:20 PM EDT Check Cashier called into patient's room d/t patient c/o itching, feeling hot , and slight redness noted to BUE and face. Check Cashier contacted Dr. Cantor office and left message with his nurse, asking for IV Benedryl and d/c of Lovenox. Patient thinks she may have had reaction to Lovenox in the past, and thatis the only other med she is currently taking here other than Dilaudid. Check Cashier did once again verify that patient usually [...] medically stable. Patient lives with her in [place]. She uses no DME and has no outside services currently in place. Patient provides for her own transportation needs and manages her medications. She is independent with her ADL's. PCP is [facility]. [facility] and denies needing further assistance with the cost of her medications. Discharge plan is home with no additional services at this time. Patient is a 'Full Code' status. She has no healthcare directives and voices that she is not interested in pursuing these documents further. JEWEL SUPERVISOR to monitor and assist with discharge [...] [place] RN - 08/23/2019 9:05 AM EDT Check Cashier made SPECIAL NEEDS CAREGIVER aware that patient is vomiting at this time since clear liquid diet added. Check Cashier to give Zofran and place patient back [...] weight loss, but states of weight gain. [id number] Discussed need to re-zero Pt bed to verify gain. She declined education needs states she has a GI doctor and RDN at the [facility]. Reports following the guidelines they recommended. [...] 5. Fluid Accumulation-No significant fluid accumulation, 6. Butcher All Round Strength-Not measured Nutrition Risk Level: Moderate Nutrient Needs: Estimated Daily Total Kcal: 5493-0359(20-23/kg) Estimated Daily Protein (g): 65-75g(1.3-1.5g/kg) Estimated Daily [...] weight gain/23%, recommend to re-zero Pt bed [place] Body Wt: 110 lb (49.9 kg), % [place] Body 129% BMI Classification: BMI 25.0 - [...] Nausea or Vomiting, Patient/Family Education Contact Number: [phone] * Carley Camara APRN - SPECIAL NEEDS CAREGIVER - 08/23/2019 7:30 AM EDT Progress Note [...] Daily Discharge Plan--later today/tomorrow Carley Camara APRN, HISTOTECHNOLOGIST-C Associated attestation - Rajeev Cantor MD - 08/23/2019 12:04 PM EDT Attending Supervising Physician s Attestation Statement I have personally evaluated and examined the patient [id number] in conjunction with the nurse practitioner. I [...] Examined and Reviewed plan of care with HISTOTECHNOLOGIST. Directions and discussion about care and plans. [...] of running a code on another patient; transit operations supervisor states that report will be called when able. Check Cashier unable to get ahold of staff inED to put patient in training project manager so that poem writer can transfer patient over to [facility]. [...] STRXRS Sabrina Dee MD, MPH [address] [place] [phone] Referral ID Status Reason Start Date Expiration Date V isits Requested Visits Authorized [id number] New Request 06/16/2022 07/11/2023 1 1 Specialty Diagnoses / Procedures Referred By Contac t Referred To Contact Endocrinology, Diabetes & Metabolism Diagnoses Osteoporosis without current pathological fracture, unspecified osteoporosis type Sabrina Dee MD, MPH [address] [place] [phone] Referral ID Status Reason Start Date Expiration Date V isits Requested Visits Authorized [id number] New Request 06/16/2022 07/11/2023 1 1 Specialty Diagnoses / Procedures Referred By Contac t Referred To Contact Diagnoses Encounter for screening colonoscopy Procedures SCREENING COLONOSCOPY NH COLON CA SCRN NOT HI RSK IND Sabrina Dee MD, MPH [address] [place] [phone] Referral ID Status Reason Start Date Expiration Date V isits Requested Visits Authorized [id number] New Request 12/16/2021 01/10/2023 1 1 Specialty Diagnoses / Procedures Referred By Contac t Referred To Contact Diagnoses Recurrent acute pancreatitis History of smoking 25-50 pack years Procedures BONE DENSITY AXIAL (HIP, PELVIS, SPINE) Sabrina Dee MD, MPH [address] [place] [phone] Referral ID Status Reason Start Date Expiration Date V isits Requested Visits Authorized [id number] New Request 12/16/2021 01/10/2023 1 1 Specialty Diagnoses / Procedures Referred By Contac t Referred To Contact Diagnoses Recurrent acute pancreatitis Procedures UPPER EUS NH EGD US GUIDED TRANSMURAL INJXN/FIDUCIAL MARKER Sabrina Dee MD, MPH [address] [place] [address] Referral ID Status Reason Start Date Expiration Date V isits Requested Visits Authorized [id number] New Request 12/16/2021 01/10/2023 1 1 Additional [...] the patient. I discussed the patient with HISTOTECHNOLOGIST/PA. I agree with the HISTOTECHNOLOGIST/PA treatment plan. I agree with the HISTOTECHNOLOGIST/PA plan of care. I agree with the HISTOTECHNOLOGIST/PA dispo as documented. 46-year-old female presents with abdominal pain. She states I have chronic pancreatitis and this feels like a flareup . States that she took her usual Phenergan and Bern with minimal relief so came the emergency [...] She is going to follow with her intranet specialist with whom she has an appointment on [...] different from the original. ED PROVIDER NOTE [facility] NAME: Chioma Rainey AGE: 46 y.o. : 1970 VISIT DATE: 06/09/2017 CSN: [id number] PCP: Alexander Nichols MD Chief Complaint Patient [...] Phenergan suppository. She states that she took Bern last night. Last dose of Bern was around 9 PM last night. She [...] Procedure: EGD; Surgeon: Romain Dumont MD; Location: [facility]; Service: HYSTERECTOMY ORIF PELVIS ORTHOPEDIC [...] Yellow Clarity, Urine Cloudy (A) Clear Specific Ellston 1.024 1.005 - 1.025 pH, Urine 5.0 [...] Phenergan suppositories. She has follow-up with her intranet specialist at [facility] in 2 weeks. Do not [...] Information 1. Pineda Troy MD. Specialty: Gastroenterology [address] [place] [address] Contact information for after-discharge care Follow-up information has not been specified. New Prescriptions No medications on file (Please note that portions of this note may have been completed with a voice recognition software. Efforts were made to correct any errors, but occasionally words are mis-transcribed.) Jose Brown PA-C 06/09/17 [id number] Pt states I have pancreatitis and I am having a flare up since last night . Pt relates mid abdominal pain that shoots into the left side of her back. Pt has been taking prescribed Bern without relief and states she has been vomiting.in this encounter I personally interviewed the patient. I personally examined the patient. I discussed the patient with HISTOTECHNOLOGIST/PA. I agree with the HISTOTECHNOLOGIST/PA treatment plan. I agree with the HISTOTECHNOLOGIST/PA plan of care. I agree with the HISTOTECHNOLOGIST/PA dispo as documented. I saw evaluate this [...] different from the original. ED PROVIDER NOTE [facility] NAME: Chioma Rainey AGE: 46 y.o. : 1970 VISIT DATE: 05/14/2017 CSN: [id number] PCP: Alexander Nichols MD Chief Complaint Patient [...] Procedure: EGD; Surgeon: Romain Dumont MD; Location: [facility]; Service: HYSTERECTOMY ORIF PELVIS ORTHOPEDIC [...] Colorless, Yellow Clarity, Urine Clear Clear Specific Ellston 1.006 1.005 - 1.025 pH, Urine 5.0 [...] in the left lower pelvis. Workstation ID: [id number] Procedures MDM This is a 46-year-old female [...] and phenergan. This RN spoke with Vandana, SPECIAL NEEDS CAREGIVER. OK to discharge patient now. Formatting of this note may be different from the original. ED PROVIDER NOTE [facility] NAME: Chioma Rainey AGE: 47 y.o. : 1970 VISIT DATE: 08/24/2017 CSN: [id number] PCP: Alexander Nichols MD Chief Complaint Patient [...] Procedure: EGD; Surgeon: Romain Dumont MD; Location: [facility]; Service: HYSTERECTOMY ORIF PELVIS ORTHOPEDIC [...] Yellow Clarity, Urine Hazy (A) Clear Specific Ellston 1.006 1.005 - 1.025 pH, Urine 7.0 [...] probably remain. 5. Small left adrenal adenoma. [email or web address] Workstation ID: [id number] Procedures MDM 47-year-old female [...] Medicine Why: follow up ER visit [address] [address] Contact information for after-discharge care Follow-up information [...] the patient. I discussed the patient with HISTOTECHNOLOGIST/PA. I agree with the HISTOTECHNOLOGIST/PA treatment plan. I agree with the HISTOTECHNOLOGIST/PA plan of care. I agree with the HISTOTECHNOLOGIST/PA dispo as documented. Formatting of this note may be different from the original. ED PROVIDER NOTE [facility] NAME: Chioma Rainey AGE: 47 y.o. : 1970 VISIT DATE: 03/04/2018 CSN: [id number] PCP: Alexander Nichols MD Chief Complaint Patient [...] Procedure: EGD; Surgeon: Romain Dumont MD; Location: [facility]; Service: HYSTERECTOMY ORIF PELVIS ORTHOPEDIC [...] Colorless, Yellow Clarity, Urine Clear Clear Specific Ellston 1.004 (L) 1.005 - 1.025 pH, Urine [...] Condition Comment Hospitalize Attending Provider or Group: [facility] [place], GENERIC [[id number]] Phone call required?: No Follow-up Information Follow-up [...] different from the original. Adonis Negro MD [facility] Hospitalists History and Physical Patient Name:Chioma Rainey MR #:[id number] :1970 Admit Date: [id number] Physicians: Alexander Nichols [...] Procedure: EGD; Surgeon: Romain Dumont MD; Location: [facility]; Service: HYSTERECTOMY ORIF PELVIS ORTHOPEDIC [...] Diagnoses Acute recurrent pancreatitis Rajeev Cantor MD [address] [place] [address], [place] [address] [facility] Reason Comments Abdominal Pain Pt [...] Sabrina Dee MD, MPH [address] [place] [address] Referral ID Status Reason Start Date Expiration Date V isits Requested Visits Authorized [id number] New Request 12/16/2021 01/10/2023 1 1 Specialty Diagnoses / Procedures Referred By Zia t Referred To Contact Diagnoses Recurrent acute pancreatitis Procedures UPPER EUS NH EGD US GUIDED TRANSMURAL INJXN/FIDUCIAL MARKER Sabrina Dee MD, MPH [address] [place] [phone] Referral ID Status Reason Start Date Expiration Date V isits Requested Visits Authorized [id number] New Request 12/16/2021 01/10/2023 1 1 Specialty Diagnoses / Procedures Referred By Kangac t Referred To Contact Diagnoses Encounter for screening colonoscopy Procedures SCREENING COLONOSCOPY NH COLON CA SCRN NOT HI RSK IND Sabrina Dee MD, MPH [address] [place] [phone] Referral ID Status Reason Start Date Expiration Date V isits Requested Visits Authorized [id number] New Request 12/16/2021 01/10/2023 1 1 Reason Comments Follow-up 6 month follow up Specialty Diagnoses / Procedures Referred By Zia t Referred To Contact Diagnoses Alcohol-induced chronic pancreatitis Procedures UPPER EUS NH ESOPHAGOGASTRODUODENOSCOPY US SCOPE W/ADJ STRXRS Sabrina Dee MD, MPH [address] [place] [phone] Referral ID Status Reason Start Date Expiration Date V isits Requested Visits Authorized [id number] New Request 06/16/2022 07/11/2023 1 1 Reason Comments Follow-up Specialty Diagnoses / Procedures Referred By Zia t Referred To Contact Diagnoses Alcohol-induced chronic pancreatitis Procedures UPPER EUS NH EGD US GUIDED TRANSMURAL INJXN/FIDUCIAL MARKER Sabrina Dee MD, MPH [address] [place] [phone] Referral ID Status Reason Start Date Expiration Date V isits Requested Visits Authorized [id number] New Request 05/11/2023 06/04/2024 1 1 Referral ID Status Reason Start Date Expiration Date V isits Requested Visits Authorized [id number] New Request 12/23/2023 01/16/2025 1 1 Reason [...] with nausea vomiting. Her GI specialist at [facility] ([facility]) instructed her to come to [...] pancreatitis (HCC) Raji Gilliam MD [address] [place] [address] Phone: tel: fax: [facility] [address] [place] [address] Referral ID Status Reason Start Date Expiration Date Visits Re quested Visits Authorized [id number] 1 1 INFORMATION SOURCE (unrecogn ized section and content) DATE CREATED AUTHOR 03/09/2018 [facility] DATE CREATED AUTHOR AUTHOR'S ORGANIZ ATION 06/18/2022 [facility] DATE CREATED AUTHOR AUTHOR'S ORGANIZ ATION 01/20/2024 [facility] DATE CREATED AUTHOR AUTHOR'S ORGANIZ ATION 10/05/2024 [facility] DATE CREATED AUTHOR AUTHOR'S ORGANIZ ATION 10/10/2024 [facility] DATE CREATED AUTHOR AUTHOR'S ORGANIZ ATION 10/25/2024 [facility] DATE CREATED AUTHOR AUTHOR'S ORGANIZ ATION 10/26/2024 [facility] DATE CREATED AUTHOR AUTHOR'S ORGANIZ ATION 10/29/2024 [facility] DATE CREATED AUTHOR AUTHOR'S ORGANIZ ATION 11/11/2024 [facility] DATE CREATED AUTHOR AUTHOR'S ORGANIZ ATION 11/26/2024 [facility] DATE CREATED AUTHOR AUTHOR'S ORGANIZ ATION 11/27/2024 [facility] DATE CREATED AUTHOR AUTHOR'S ORGANIZ ATION 11/28/2024 [facility] DATE CREATED AUTHOR AUTHOR'S ORGANIZ ATION 12/10/2024 [facility] DATE CREATED AUTHOR AUTHOR'S ORGANIZ ATION 12/13/2024 [facility] DATE CREATED AUTHOR AUTHOR'S ORGANIZ ATION 12/13/2024 [facility] Care Teams (unrecognized sec tion and content) Team Status: Inactive Member Role Status Dates NON STAFF Primary Care Provider Active Reinlado Amor PA-C Emergency Provider Active Team Status: Inactive Member Role Status Dates NON STAFF Primary Care Provider Active Keaton Barnard DO Emergency Provider Active Team Status: Active Member Role Status Dates NON STAFF Primary Care Provider Active Team Status: Inactive Member Role Status Dates NON STAFF Primary Care Provider Active Christa Lopez PA-C Emergency Provider Active Territory Supervisor Relationship Specialty Start Date End Date Pineda Troy MD [address] [place] [address] PCP - Referring 1 Gastroenterology 09/25/17 [facility], Other [address] [place] [address] PCP - General 11/28/19 Territory Supervisor Relationship Specialty Start Date End Date Pineda Troy MD [address] [place] [phone] PCP - Referring 1 Gastroenterology 09/25/17 [facility], Other [address] [place] [address] PCP - General 11/28/19 Territory Supervisor Relationship Specialty Start Date End Date Pineda Troy MD [address] [place] [phone] PCP - Referring 1 Gastroenterology 09/25/17 [facility], Other [address] [place] [address] PCP - General 11/28/19 Territory Supervisor Relationship Specialty Start Date End Date Pineda Troy MD [address] [place] [phone] PCP - Referring 1 Gastroenterology 09/25/17 [facility], Other [address] [place] [address] PCP - General 11/28/19 Team Status: Inactive Member Role Status Dates NON STAFF Primary Care Provider Active Agustin Llanes MD Emergency Provider Active Territory Supervisor Relationship Specialty Start Date End Date Pineda Troy MD [address] [place] [phone] PCP - Referring 1 Gastroenterology 09/25/17 [facility], Other [address] [place] [address] PCP - General 11/28/19 Territory Supervisor Relationship Specialty Start Date End Date Pineda Troy MD [address] [place] [phone] PCP - Referring 1 Gastroenterology 09/25/17 [facility], Other [address] [place] [address] PCP - General 11/28/19 Team Status: Inactive [...] April 18, 2023 End: April 18, 2023 Territory Supervisor Relationship Specialty Start Date End Date Pineda Troy MD [facility] [address] [place], [place] [phone] PCP - Referring 1 Gastroenterology 09/25/17 [facility], Other [address] [place] [address] PCP - General 11/28/19 Territory Supervisor Relationship Specialty Start Date End Date Pineda Troy MD PCP - Referring 1 Gastroenterology 09/25/17 [facility], Other [address] [place] [address] PCP - General 11/28/19 Territory Supervisor Relationship Specialty Start Date End Date Pineda Troy MD PCP - Referring 1 Gastroenterology 09/25/17 [facility], Other [address] [place] [address] PCP - General 11/28/19 Territory Supervisor Relationship Specialty Start Date End Date [facility] [address] [place] PCP - General Family Medicine 03/26/23 Territory Supervisor Relationship Specialty Start Date End Date [facility] [address] [place], [place] PCP - General Family Medicine 03/26/23 Territory Supervisor Relationship Specialty Start Date End Date [facility] [address] [place] PCP - General Family Medicine 03/26/23 [...] October 28, 2024 End: October 28, 2024 Territory Supervisor Relationship Specialty Start Date End Date Cynthia Galindo [address] [place], [place] [phone] PCP - General Family Medicine 07/30/11 Territory Supervisor Relationship Specialty Start Date End Date Cynthia Galindo [address] [place], [place] [phone] PCP - General Family Medicine 07/30/11 Goals [...] specifically ordered. 2004 (Given - Provid er: aDnay Knutson RN) ondansetron (ZOFRAN) injection 4 mg [...] or prosecute any alcohol or drug abuse patient.[facility] the event this information is protected by the Federal Confidentiality of Alcohol and Drug Abuse Patient Records regulations: The Federal rules restrict any use of the information to criminally investigate or prosecute any alcohol or drug abuse patient.[facility] the event this information is protected by the Federal Confidentiality of Alcohol and Drug Abuse Patient Records regulations: The Federal rules restrict any use of the information to criminally investigate or prosecute any alcohol or drug abuse patient.[facility] FOR RECORDS PERTAINING TO PATIENTS WHO [...] ON THE PRIMARY CLINICAL RECORDS. [facility] [employer] [facility]. provides no warranty or guarantee of the accuracy or completeness of information in this document.
[2024-12-18 20:27] LABS: Hematocrit 39.7 % (36.0-48.0); Hemoglobin 13.6 g/dL (12.0-16.0); Immature Granulocytes Abs Auto 0.03 10^3/uL (0.00-0.03); Immature Granulocytes Pct Auto 0.3 % (0.0-0.5); Lymphocytes Absolute Auto 2.7 10^3/uL (1.2-3.8); Mean Corpuscular HGB Conc 34.3 g/dL (29.9-35.2); Mean Corpuscular Hemoglobin 32.8 pg (26.7-34.0); Mean Corpuscular Volume 95.7 fL (81.0-99.0); Platelet Count 333 10^3/uL (150-450); Red Blood Count 4.15 10^6/uL (4.20-5.40); White Blood Count 11.1 10^3/uL (4.0-11.0)
[2024-12-18] MEDS: 0.9 % SODIUM CHLORIDE 1,000 ML 1000 ML IV (20:36)
[2024-12-18] MEDS: PANTOPRAZOLE SODIUM 40 MG VIAL IV (20:37)
[2024-12-18] MEDS: HYDROMORPHONE HCL 1 MG/ML CARTRIDGE IV ×2 (20:39→22:09)
[2024-12-18 20:43] LABS: Alanine Aminotransferase 23 U/L (14-59); Albumin Globulin Ratio 1.0; Albumin Level 3.7 g/dL (3.4-5.0); Alkaline Phosphatase 155 U/L (46-116); Anion Gap 10.9; Aspartate Amino Transferase 20 U/L (15-37); Blood Urea Nitrogen 7.0 mg/dL (7.0-18.0); Calcium 10.0 mg/dL (8.5-10.1); Carbon Dioxide 29.6 mmol/L (21.0-32.0); Chloride 103 mmol/L (98-107); Estimated GFR (African America >60 (>=60 mL/min/1.73m^2); Estimated GFR (Non-African Ame >60 (>=60 mL/min/1.73m^2); Globulin 3.8 g/dL; Glucose 102 mg/dL (74-106); Lipase 283.0 U/L (16.0-77.0); Potassium 3.5 mmol/L (3.5-5.1); Sodium 140 mmol/L (136-145); Total Protein 7.5 g/dL (6.4-8.2)
[2024-12-18] MEDS: PROMETHAZINE HCL 25 MG/ML VIAL IM (21:09)
[2024-12-18 21:48] VITALS: BP 142/80
== END 2024-12-18 22:26 | disposition home or self-care (01) ==
PROVIDERS: Emergency Provider Emergency Medicine
DX: R10.13 Epigastric pain (principal); G89.29 Other chronic pain; K86.0 Alcohol-induced chronic pancreatitis; F17.200 Nicotine dependence, unspecified, uncomplicated
CPT/HCPCS: 36415; 80053; 83690; 85025; 96361; 96372; 96374; 96375; 96376; 99285; J1171; J2405; J2550

== ENCOUNTER 2024-12-23 12:40 | Emergency (ER) | payer OTHER, SELFPAY ==
--- OUTSIDE RECORDS SUMMARY | 2024-12-08 20:16 | XMS_ITS | Encounter Summary ---
Author Organization [facility] tem Address [id number] [address] [place] [address] Care Team Providers Care Lifter Name Role Phone Services, [facility] Primary Care Provider Reason for Visit * Reason Comments Abdominal Pain Vomiting Encounter Details Date Type Department Care Team (Late st Contact Info) Description 12/08/2024 8:16 PM EDT - 12/08/2024 10:57 PM EDT Emergency [facility] - Emergency [address] [place] [id number] Rudy Bautista MD [address] [place] [address] Chronic abdominal pain (Primary Dx); Nausea and vomiting, unspecified vomiting type Discharge Disposition: Home Social History Tobacco Use Types Packs/Day Years Used Date Smoking Tobacco: Former Cigarettes 0.3 20 0 10/30/2000 - 10/30/2020 Smokeless Tobacco: Never Tobacco Cessation:Counseling Given: Not Answered Alcohol Use Standard Drinks/Week [...] got money to buy more. Never True 12/08/2024 Within the past 12 months th e food we bought just didn't last and we didn't have money to get more. Never True 12/08/2024 Purpose - Life Answer Date Recorded Purpose and direction in life Unknown Comments No Sex and Gender Information Value Date Recorded Sex Assigned at Not on file Legal Sex Female 12:09 PM EDT Gender Identity Not on file Sexual Orientation Not on file documented as of this encounter Last Filed Vital Signs Vital Sign Reading Time Taken Comments Blood Pressure 136/88 12/08/2024 9:30 PM EDT Pulse 116 12/08/2024 8:22 PM EDT Temperature 37.1 C (98.8 F) 12/08/2024 8:22 PM EDT Respiratory Rate 20 12/08/2024 8:22 PM EDT Oxygen Saturation 100% 12/08/2024 9:30 PM EDT Inhaled Oxygen Concentration - - Weight 54.4 kg (120 lb) 12/08/2024 8:22 PM EDT Height 157.5 cm (5' 2 ) 12/08/2024 8:22 PM EDT Body Mass Index 21.95 12/08/2024 8:22 PM EDT documented in this encounter Discharge Instructions * Attachments The following attachments cannot be sent through Care Everywhere. * Nausea and vomiting in adults (Taiwanese) * Abdominal pain in adults ??? Discharge instructions (Taiwanese) documented in this encounter Medications at Time of Discharge amitriptyline (ELAVIL) 10 mg tablet Take 25 mg by mouth. 12/01/2019 amitriptyline (ELAVIL) 25 mg tablet Take 1 tablet (25 mg total) by mouth nightly. 15 tablet 15 08/26/2021 famotidine (PEPCID) 20 mg tablet Take 1 tablet (20 mg total) by mouth in the morning and 1 tablet (20 mg total) before bedtime. 30 tablet 12/29/2023 dgytmx-ipqlxtmu-mtn lase (CREON) 12,000-38,000 -60,000 unit capsule,delayed release(DR/EC) [...] as of this encounter ED Notes * Lucy Ibarra RN - 12/08/2024 10:56 PM EDT Pt leaves ED before receiving discharge papers. * Lucy Ibarra RN - 12/08/2024 10:49 PM EDT Pt yelling in room, RN enters room to medicate pt, pt refuses medications and begins taking her IV out. aware. * Julia Ross RN - 12/08/2024 8:24 PM EDT Pt states feels like a flare up of pancreatitis. Epigastric pain with vomiting and diarrhea * Rudy Bautista MD - 12/08/2024 8:24 PM EDT Images from the original note were not included. [facility] - EMERGENCY Pt Name: Bernice Arciniega Birthdate: 1970 Chief Complaint: Chief Complaint Patient presents with Abdominal Pain Vomiting History of Present Illness: Bernice Arciniega is a 54 year old female that presents to the ED with complaint of abdominal painand nausea. Patient states she has a history of pancreatitis. States she was admitted recently for 6 days at [facility] for a flare-up of pancreatitis. She states has returned similar to when she was diagnosed with pancreatitis. Reports she is sober and has not drank in years. Denies any drug use. Denies any smoking. History provided by: Patient bilingual interpreter used: No Past Medical History: Past Medical History: Diagnosis Date Allergic Anxiety Arthritis Injury of back Pancreatitis Past Surgical History: Past Surgical History: Procedure Laterality Date CHOLECYSTECTOMY HYSTERECTOMY Family History: Family History Problem Relation Age of Onset Breast cancer Mother Cancer Maternal Grandmother Cancer Maternal Grandfather Alzheimer's disease Maternal Grandfather Social History: Social History Socioeconomic History Marital status: Tobacco Use Smoking status: Former Current packs/day: 0.00 Average packs/day: 0.3 packs/day for 20.0 years (5.0 ttl pk-yrs) Types: Cigarettes Start date: 10/30/2000 Quit date: 10/30/2020 Years since quittin.1 Smokeless tobacco: Never Vaping Use Vaping status: Never Used Substance and Sexual Activity Alcohol use: Not Currently Comment: Has not consumed alcohol in 12 years Drug use: No Sexual activity: Defer Social Drivers of Health Food Insecurity: No Food Insecurity (12/08/2024) Hunger Screening Food Insecurity - Worry: Never True Food Insecurity - Inability: Never True Transportation Needs: No Transportation Needs (11/06/2024) Received from [facility] PRAPARE - Transportation In the past 12 months, has lack of transportation kept you from medical appointments or from getting medications?: No In the past 12 months, has lack of transportation kept you from meetings, work, or from getting things needed for daily living?: No Housing Instability: Low Risk (11/06/2024) Received from [facility] Housing Stability Vital Sign Unable to Pay for Housing in the Last Year: No Number of Times Moved in the Last Year: 0 Homeless in the Last Year: No Review of Systems: Review of Systems Constitutional: Negative for chills and fever. HENT: Negative for ear pain. Eyes: Negative for pain. Respiratory: Negative for shortness of breath. Cardiovascular: Negative for chest pain/discomfort. Gastrointestinal: Positive for abdominal pain. Negative for diarrhea, nausea and vomiting. Genitourinary: Negative for flank pain. Musculoskeletal: Negative for back pain. Skin: Negative for rash. Neurological: Negative for headaches. Psychiatric/Behavioral: Negative for sleep disturbance and suicidal ideas. Physical Exam: ED Triage Vitals Temp Pulse Resp BP SpO2 -- -- -- -- -- Temp src Heart Rate Source Patient Position BP Location FiO2 (%) -- -- -- -- -- Vitals: 12/08/24202112/08/24 2030 12/08/24 2130 BP: (!) 137/110 (!) 134/119 136/88 Temp: 37.1 ??C (98.8 ??F) TempSrc: Oral Pulse: (!) 116 Resp: 20 SpO2: 93% 96% 100% MAP (mmHg): 126 100 Height: 157.5 cm (5' 2 ) Weight: 54.4 kg (120 lb) 100 Physical Exam Vitals reviewed. HENT: Head: Normocephalic and atraumatic. Eyes: Conjunctiva/sclera: Conjunctivae normal. Cardiovascular: Rate and Rhythm: Normal rate. Pulmonary: Effort: Pulmonary effort is normal. Breath sounds: Normal breath sounds. Abdominal: General: There is no distension. Palpations: Abdomen is soft. Tenderness: There is abdominal tenderness in the right upper quadrant. Musculoskeletal: General: Normal range of motion. Cervical back: Normal range of motion and neck supple. Skin: General: Skin is warm and dry. Neurological: General: No focal deficit present. Mental Status: She is alert and oriented to person, place, and time. GCS: GCS eye subscore is 4. GCS verbal subscore is 5. GCS motor subscore is 6. Procedure: Procedures Re-evaluation: 10:45 PM Pt updated on Labs and CT results. We discussed that there are no emergent findings. Pt became moreand more upset stating she will be up all night. She has an appointment with her GI next week. Pt began yelling and demanding more medication because she can't eat anything. I ordered her zofran and pepcid. Nursing reports that she refused the medication and is demanding to have her IV out so she can leave Medical Decision Making Plan of care - labs, imaging, pain management, antiemetics, urine Amount and/or Complexity of Data Reviewed Labs: ordered. Decision-making details documented in ED Course. Radiology: ordered. Decision-making details documented in ED Course. Risk Prescription drug management. ED Course: Clinical Impressions as of 12/08/242258 Chronic abdominal pain Nausea and vomiting, unspecified vomiting type . ED Disposition ED Disposition Discharge Date/Time Eladia Dec 08, 2024 10:51 PM Comment At the time of discharge, the plan has been discussed with the patient regarding the diagnosis and prognosis. All questions have been answered. Verbal discharge instructions were discussed with the patient. The patient has been advised to follow up w ith their Specialist within 1 week. The patient was also instructed to return to the ED if their symptoms change, worsen, new symptoms arise or if they have any additional concerns. I, Dr. Bautista personally performed a hcrw-ko-isoa diagnostic evaluation on this patient. I personally made and approved the management plan for this patient and take responsibility for the patient management. Additional Notes/Findings: Bernice Arciniega is a 54 y.o. female presenting to the ED for chief complaint of abdominal pain and vomiting. Exam findings as follows: Constitutional: Awake and alert HENT: Head normocephalic and atraumatic Eyes: conjunctiva unremarkable Cardiovascular: Heart rate regular Pulmonary: Easy work of breathing, speaking full sentences Abdominal: Flat and non-distended. Skin: Warm and dry Musculoskeletal: Moving all extremities spontaneously Neurological: tearful and anxious Please note that portions of this note were completed with a voice recognition program. Efforts were made to edit the dictations but occasionally words are mis-transcribed. Marya Cat, ALEA-PROJECT SUPERINTENDENT 12/08/242051 Rudy Bautista MD 12/08/242246 Rduy Bautista MD 12/08/242258 documented in this encounter Plan of Treatment Not on file documented as of this encounter Procedures Procedure Name Priority Date/Time Associated Diagnosis Comments CT ABDOMEN AND PELVIS W CONT STAT 12/08/2024 9:17 PM EDT LACTATE W/ REFLEX STAT 12/08/2024 8:3 8 PM EDT CBC WITH AUTO DIFFERENTIAL STAT 12/08/2024 8:38 PM EDT BLUE TOP STAT 12/08/2024 8:38 PM EDT RAINBOW DRAW STAT 12/08/2024 8:38 PM EDT MAGNESIUM STAT 12/08/2024 8:38 PM EDT LIPASE STAT 12/08/2024 8:38 PM EDT COMPREHENSIVE METABOLIC PANEL STAT 12/08/2024 8:38 PM EDT documented in this encounter Results * CT abdomen and pelvis with contrast (12/08/2024 9:17 PM EDT) Anatomical Region Laterality Modality Body, Abdomen, Body Covera N/A Compu aurelia Tomography 12/08/2024 9:58 PM EDT Narrative 12/08/2024 10:[address] ABDOMEN AND PELVIS W CONT CLINICAL INFORMATION: Abdominal pain and vomiting, history of pancreatitis. COMPARISON: CT abdomen and pelvis with contrast 09/19/2024. CT abdomen and pelvis with contrast 09/07/2018. TECHNIQUE: CT of the abdomen/pelvis with intravenous contrast. All CT scans at this facility use dose modulation, iterative reconstruction, and/or weight based dosing when appropriate to reduce radiation dose to as low as reasonably achievable. FINDINGS: LOWER CHEST: Lung bases are clear. No pleural or pericardial effusion. LIVER AND BILIARY: Noncirrhotic morphology. Mild intrahepatic biliary ductal dilatation. Cholecystectomy. Dilatation of the common bile duct up to 1.4 cm, likely reservoir effect. PANCREAS: Unremarkable morphology. No peripancreatic fluid collection. Similar prominence of the pancreatic duct measuring up to 4 mm in the body, present since at least 09/07/2018. However, there is focal mucosal wall thickening of the 1.9 x 1.3 x 1.9 cm at the level of the ampulla of Vater. SPLEEN: Non-enlarged. ADRENALS: Stable 1.5 cm left adrenal nodule. This has been present since at least 09/07/2018. : Symmetric enhancement. No renal calculi or collecting system dilatation, by technique. Ureters are normal in course and caliber. Bladder appears unremarkable. GI TRACT AND PERITONEUM: Small hiatal hernia. There is 1.9 cm duodenal mucosal soft tissue thickening, otherwise, normal caliber small and large bowel. No free intraperitoneal air or fluid. The appendix is unremarkable. VASCULATURE: The abdominal aorta is aneurysmal. Mild aortoiliac calcifications. The portal, splenic, superior mesenteric veins appear patent. LYMPH NODES: No enlarged mesenteric or retroperitoneal lymph nodes by CT size criteria. PELVIS: The uterus is surgically absent. MUSCULOSKELETAL: No acute osseous abnormality. Multilevel degenerative changes of the thoracolumbar spine, most prominently at L1-L2. Limbus vertebrae L5. IMPRESSION: * No evidence of acute pancreatitis. However, there is 1.9 cm focal mucosal soft tissue thickening at the ampulla of Vater. Further characterization with contrast- enhanced abdomen MRI and MRCP versus direct visualization is advised on nonemergent basis. Approved by Resident Chi Brooks MD on 12/08/2024 9:58 PM IGrover MD have personally reviewed the image(s) and agree with and/or edited the report Finalized by Grover Arce MD on 12/08/2024 10:27 PM Procedure Note Grover Arce MD - 12/08/2024 CT ABDOMEN AND PELVIS W CONT CLINICAL INFORMATION: Abdominal pain and vomiting, history ofpancreatitis. COMPARISON: CT abdomen and pelvis with contrast 09/19/2024. CT abdomen andpelvis with contrast 09/07/2018. TECHNIQUE: CT of the abdomen/pelvis with intravenous contrast. All CT scans at this facility use dose modulation, iterativereconstruction, and/or weight based dosing when appropriate to reduceradiation dose to as low as reasonably achievable. FINDINGS: LOWER CHEST: Lung bases are clear. No pleural or pericardial effusion. LIVER AND BILIARY: Noncirrhotic morphology. Mild intrahepatic biliaryductal dilatation. Cholecystectomy. Dilatation of the common bile duct upto 1.4 cm, likely reservoir effect. PANCREAS: Unremarkable morphology. No peripancreatic fluid collection.Similar prominence of the pancreatic duct measuring up to 4 mm in thebody, present since at least 09/07/2018. However, there is focal mucosalwall thickening of the 1.9 x 1.3 x 1.9 cm at the level of the ampulla ofVater. SPLEEN: Non-enlarged. ADRENALS: Stable 1.5 cm left adrenal nodule. This has been present sinceat least 09/07/2018. : Symmetric enhancement. No renal calculi or collecting systemdilatation, by technique. Ureters are normal in course and caliber.Bladder appears unremarkable. GI TRACT AND PERITONEUM: Small hiatal hernia. There is 1.9 cm duodenalmucosal soft tissue thickening, otherwise, normal caliber small and largebowel. No free intraperitoneal air or fluid. The appendix isunremarkable. VASCULATURE: The abdominal aorta is aneurysmal. Mild aortoiliaccalcifications. The portal, splenic, superior mesenteric veins appearpatent. LYMPH NODES: No enlarged mesenteric or retroperitoneal lymph nodes by CTsize criteria. PELVIS: The uterus is surgically absent. MUSCULOSKELETAL: No acute osseous abnormality. Multilevel degenerativechanges of the thoracolumbar spine, most prominently at L1-L2. Limbusvertebrae L5. IMPRESSION: * No evidence of acute pancreatitis. However, there is 1.9 cm focalmucosal soft tissue thickening at the ampulla of Vater. Furthercharacterization with contrast-enhanced abdomen MRI and MRCP versus directvisualization is advised on nonemergent basis. Approved by Resident Chi Brooks MD on 12/08/2024 9:58 PM I, Grover Arce MD have personally reviewed the image(s) and agree withand/or edited the report Finalized by Grover Arce MD on 12/08/2024 10:27 PM us Maray Cat PACKER OPERATOR AUTOMATIC-PROJECT SUPERINTENDENT IMG CT ORDERABLES Final Re sult * Light Blue Top (12/08/2024 8:38 PM EDT) Extra Tube Auto Resulted 12/08/2024 10:02 PM EDT [facility] Blood Venous blood / Unknown 12/08/2024 8:38 PM EDT 12/08/2024 8:43 PM EDT us Rudy Bautista MD LAB BLOOD ORDERABLES Final R esult [address] [place] [address], [place] * Magnesium (12/08/2024 8:38 PM EDT) MAGNESIUM 2.2 1.8 - 2.6 mg/dL 12/08/2024 9:02 PM EDT [facility] Blood Venous blood / Unknown 12/08/2024 8:38 PM EDT 12/08/2024 8:43 PM EDT us Marya Cat PACKER OPERATOR AUTOMATIC-PROJECT SUPERINTENDENT LAB BLOOD ORDERABLES Final Result [address] [place] [address], [place] * (ABNORMAL) Lipase (12/08/2024 8:38 PM EDT) LIPASE 66(H) 17 - 40 U/L 12/08/2024 9:00 PM EDT [facility] Blood Venous blood / Unknown 12/08/2024 8:38 PM EDT 12/08/2024 8:43 PM EDT us Marya Cat PACKER OPERATOR AUTOMATIC-PROJECT SUPERINTENDENT LAB BLOOD ORDERABLES Final Result [address] [place] [address], [place] * Lactate w/ Reflex (12/08/2024 8:38 PM EDT) LACTATE W/REFLEX 1.4 0.4 - 2.0 mmol/L 12/08/2024 9:04 PM EDT [facility] Blood Venous blood / Unknown 12/08/2024 8:38 PM EDT 12/08/2024 8:43 PM EDT Narrative [facility] - 12/08/2024 9:04 PM EDT Result did not trigger repeat Lactate, re-order if needed. us Marya Cat PACKER OPERATOR AUTOMATIC-PROJECT SUPERINTENDENT LAB BLOOD ORDERABLES Final Result [facility] [address] [place] [address], * (ABNORMAL) Comprehensive metabolic panel (12/08/2024 8:38 PM EDT) SODIUM 138 134 - 146 mmol/L 12/08/2024 9:02 PM EDT [facility] POTASSIUM 3.8 3.5 - 5.0 mmol/L 12/08/2024 9:02 PM EDT [facility] CHLORIDE 104 98 - 109 mmol/L 12/08/2024 9:02 PM EDT [facility] CARBON DIOXIDE 21(L) 22 - 32 mmol/L 12/08/2024 9:02 PM EDT [facility] ANION GAP 13 5 - 15 mmol/L 12/08/2024 9:02 PM EDT [facility] BLOOD UREA NITROGEN 11 5 - 23 mg/dL 12/08/2024 9:02 PM EDT [facility] CREATININE 0.79 0.40 - 1.00 mg/dL 12/08/2024 9:02 PM EDT [facility] Comment:METHOD TRACEABLE TO IDMS STANDARD GLUCOSE 114(H) 65 - 99 mg/dL 12/08/2024 9:02 PM EDT [facility] CALCIUM 10.3 8.5 - 10.5 mg/dL 12/08/2024 9:02 PM EDT [facility] TOTAL PROTEIN 8.5(H) 6.0 - 8.0 g/dL 12/08/2024 9:02 PM EDT [facility] ALBUMIN 4.5 3.2 - 5.3 g/dL 12/08/2024 9:02 PM EDT [facility] ALKALINE PHOSPHATASE 156(H) 39 - 130 U/L 12/08/2024 9:02 PM EDT [facility] AST 23 <=41 U/L 12/08/2024 9:02 PM EDT [facility] ALT 21 <=31 U/L 12/08/2024 9:02 PM EDT [facility] BILIRUBIN,TOTAL 0.4 0.3 - 1.2 mg/dL 12/08/2024 9:02 PM EDT [facility] EGFR Non-Race Dependent 88 >=60 ml/min/1.7 3sq.m 12/08/2024 9:02 PM EDT [facility] Comment: eGFR not reported due to non-numeric value for Creatinine. Reported eGFR is based on the CKD-EPI 2020 equation that does not use a race coefficient. Blood Venous blood / Unknown 12/08/2024 8:38 PM EDT 12/08/2024 8:43 PM EDT us Marya Cat PACKER OPERATOR AUTOMATIC-PROJECT SUPERINTENDENT LAB BLOOD ORDERABLES Final Result Performing Organization Address City/State/[facility] Co de Phone Number [facility] [address] [place] [address], * (ABNORMAL) CBC auto differential (12/08/2024 8:38 PM EDT) WBC 11.6(H) 4 - 11 x10E9/L 12/08/2024 8:55 PM EDT [facility] RBC Count 4.75 3.8 - 5.2 X10E12/L 12/08/2024 8:55 PM EDT [facility] Hemoglobin 15.4 11.7 - 15.5 g/dL 12/08/2024 8:55 PM EDT [facility] Hematocrit 44.9 35 - 47 % 12/08/2024 8:55 PM EDT [facility] MCV 95 80 - 100 fL 12/08/2024 8:55 PM EDT [facility] MCH 32.4 27 - 34 pg 12/08/2024 8:55 PM EDT [facility] MCHC 34.3 32 - 36 g/dL 12/08/2024 8:55 PM EDT [facility] RDW 13.1 11.5 - 15 % 12/08/2024 8:55 PM EDT [facility] Platelet Count 404 150 - 450 X10E9/L 12/08/2024 8:55 PM EDT [facility] MPV 7.8 7 - 12 fL 12/08/2024 8:55 PM EDT [facility] Neutrophils % 62.8 % 12/08/2024 8:55 PM EDT [facility] Lymphocytes % 27.5 % 12/08/2024 8:55 PM EDT [facility] Monocytes % 8.1 % 12/08/2024 8:55 PM EDT [facility] Eosinophils % 0.6 % 12/08/2024 8:55 PM EDT [facility] Basophils % 1.0 % 12/08/2024 8:55 PM EDT [facility] Neutrophils Absolute (A) 7.3(H) 1.5 - 6.6 10*3/uL 12/08/2024 8:55 PM EDT [facility] Lymphocytes Absolute 3.2 1.0 - 3.5 10*3/uL 12/08/2024 8:55 PM EDT [facility] Monocytes Absolute 0.9 0.0 - 0.9 10*3/uL 12/08/2024 8:55 PM EDT [facility] Eosinophils Absolute 0.1 0.0 - 0.4 10*3/uL 12/08/2024 8:55 PM EDT [facility] Basophils Absolute 0.1 0.0 - 0.2 10*3/uL 12/08/2024 8:55 PM EDT [facility] Differential Type AUTOMATED DIFFERENTIAL 12/08/2024 8:55 PM EDT [facility] Blood Venous blood / Unknown 12/08/2024 8:38 PM EDT 12/08/2024 8:43 PM EDT us Marya Cat PACKER OPERATOR AUTOMATIC-PROJECT SUPERINTENDENT LAB BLOOD ORDERABLES Final Result [facility] [address] [place] [address], documented in this encounter Visit Diagnoses Diagnosis Chronic abdominal pain- Primary Abdominal pain, unspecified site Nausea and vomiting, unspecified vomiting type documented in this encounter Administered Medications Inactive Administered Medications - up to 3 most recent administrations Medication Order MAR Action Action Date Dose Rate Site diphenhydrAMINE (BENADRYL) injection 50 mg 50 mg, intravenous, Once, On Eladia 12/08/24 at 2130, For 1 dose, Look-alike/sound-alike medication - verify indication for use. Given 12/08/2024 9:41 PM EDT 50 mg HYDROmorphone (PF) (DILAUDID) injection 0.5 mg 0.5 mg, intravenous, Once, On Eladia 12/08/24 at 2024, For 1 dose, If IV push, administer over over 2 to 3 minutes. Look-alike/sound-alike medication - verify indication for use. Given 12/08/2024 8:42 PM EDT 0.5 mg iohexoL (OMNIPAQUE) 300 mg iodine/mL 100 mL 100 mL, intravenous, Once in imaging, contrast, Starting on Eladia 12/08/24 at 2058, For 1 dose, VESICANT (RED) Given 12/08/2024 9:15 PM EDT 100 mL ondansetron (PF) (ZOFRAN) injection 4 mg 4 mg, intravenous, Once, On [place]adia 12/08/24 at 2024, For 1 dose, Intravenous administration preferred to be given over 2-5 minutes. Given 12/08/2024 8:40 PM EDT 4 mg sodium chloride 0.9 % flush 10 mL 10 mL, intravenous, As needed, line care, Starting on Eladia 12/08/24 at 2058 Given 12/08/2024 9:15 PM EDT 10 mL sodium chloride 0.9 % radiology injection 80 mL, intravenous, Once in imaging, pre/post contrast, Starting on Eladia 12/08/24 at 2058, For 1 dose Given 12/08/2024 9:15 PM EDT 80 mL documented in this encounter Active and Recently Administered Medications Times are shown in EDT. Scheduled Medication Order 12/06/2024 12/07/2024 12/08/2024 diphenhydrAMINE (BENADRYL) injection 50 mg (COMPLETED) 50 mg, intravenous, Once, On Eladia 12/08/24 at 2130, For 1 dose, Look-alike/sound-alike medication - verify indication for use. 2140 (Given - Provid er: Lucy Ibarra RN) famotidine (PF) (PEPCID) injection 20 mg 20 mg, intravenous, Once, On [place]adia 12/08/24 at 2243, For 1 dose, Dilute to total volume of 5 mL with 0.9% sod chl and administer IVP over 2 minutes. 2243 (Not Given - Pr ovider: Lucy Ibarra RN - Reason: Patient/family refused) HYDROmorphone (PF) (DILAUDID) injection 0.5 mg (COMPLETED) 0.5 mg, intravenous, Once, On [place]adia 12/08/24 at 2024, For 1 dose, If IV push, administer over over 2 to 3 minutes. Look-alike/sound-alike medication - verify indication for use. 2041 (Given - Provid er: Lucy Ibarra RN) ondansetron (PF) (ZOFRAN) injection 4 mg (COMPLETED) 4 mg, intravenous, Once, On [place]adia 12/08/24 at 2024, For 1 dose, Intravenous administration preferred to be given over 2-5 minutes. 2039 (Given - Provid er: Lucy Ibarra RN) ondansetron (PF) (ZOFRAN) injection 4 mg 4 mg, intravenous, Once, On [place]ia 12/08/24 at 2243, For 1 dose, Intravenous administration preferred to be given over 2-5 minutes. 2243 (Not Given - Pr ovider: Lucy Ibarra RN - Reason: Patient/family refused) PRN Medication Order 12/06/2024 12/07/2024 12/08/2024 iohexoL (OMNIPAQUE) 300 mg iodine/mL 100 mL (COMPLETED) 100 mL, intravenous, Once in imaging, contrast, Starting on [place] 12/08/24 at 2058, For 1 dose, VESICANT (RED) 2114 (Given - Provid er: Monalisa Brunner) sodium chloride 0.9 % flush 10 mL 10 mL, intravenous, As needed, line care, Starting on [place] 12/08/24 at 2058 2114 (Given - Provid er: Monalisa Brunner) sodium chloride 0.9 % radiology injection (COMPLETED) 80 mL, intravenous, Once in imaging, pre/post contrast, Starting on [place] 12/08/24 at 2058, For 1 dose 2114 (Given - Provid er: Monalisa Brunner) documented in this encounter Care Teams Lifter Relationship Specialty Start Date End Date [facility], [facility] [address], [place] PCP - General Family Medicine 05/31/24 documented as of this encounter
[2024-12-23] VITALS (22 sets, daily range): BP systolic 108–143; BP diastolic 60–85; PULSE 97–120; TEMP 37.3; O2SAT 91–98; BMI 20.9
--- NOTE | 2024-12-23 13:00 | ED_ITS ---
HPI HPI - General Adult General Chief complaint: Abdominal Pain Stated complaint: ABDOMINAL PAIN, VOMITING Time Seen by Provider: 12/23/24 12:44 Source: patient Mode of arrival: ambulance History of Present Illness HPI narrative: 54-year-old female presented to the emergency department for abdominal pain. She has a history of chronic pancreatitis and is followed at the [facility]. She states she is being evaluated for another feeding tube. She complains of epigastric pain that she has had for the last day or so. It is moderate to severe. This is her third visit to this emergency department in this month for the same issue. No fever or trauma. Related Data Home Medications ?Medication ?Instructions ?Recorded ?Confirmed amitriptyline 25 mg tablet 25 mg PO DAILY 12/18/2403/02 gdmczs-gkfklwyw-gkblvf(pork)24,000-76,000-120,000 1 ca p PO TID 12/18/24 12/18/24 unit capsule,del rel (Creon) omeprazole 40 mg capsule,delayed 40 mg PO Q8H 12/18/24 12/18/24 release ondansetron HCl 4 mg tablet 4 mg PO Q8H PRN nausea and vomiting 12/18/24 12/18/24 Allergies Allergy/AdvReac Type Severity Reaction Status Date / Time haloperidol (From Haldol) Allergy Intermediate Hives Verified 12/16/24 22:11 ibuprofen (From Motrin) Allergy Intermediate Hives Verified 12/16/24 22:11 tramadol Allergy Intermediate Hives Verified 12/16/24 22:11 Penicillins Allergy Unknown Anaphylaxis Verified 12/16/24 22:11 morphine Allergy swells Verified 12/16/24 22:11 prochlorperazine (From Allergy Hives Verified 12/16/24 22:11 Compazine) ketorolac (From Toradol) AdvReac Severe Hives Verified 12/16/24 22:11 fentanyl AdvReac Intermediate Hives Verified 12/16/24 22:11 Opioid HPI Opioid Management Most Recent Opioid Data: Last Pain Scale 8 Today, 13:17 Last MAR Pain Assessment Today, 13:17 Review of Systems ROS Narrative A ten point review of systems is negative except as noted above. PFSH PFS Medical History (Updated 12/23/24 @ 15:49 by Barry Stinson MD) COPD (chronic obstructive pulmonary disease) ?J44.9 - Chronic obstructive pulmonary disease, unspecified (ICD-10) Chronic pancreatitis ?K86.1 - Other chronic pancreatitis (ICD-10) Smoker ?F17.200 - Nicotine dependence, unspecified, uncomplicated (ICD-10) History of gastrostomy tube placement Surgical History (Updated 04/03/23 @ 12:10 by Marni Farley) Hx of esophagogastroduodenoscopy ?Z98.890 - Other specified postprocedural states (ICD-10) H/O colonoscopy ?Z98.890 - Other specified postprocedural states (ICD-10) Hx of cholecystectomy ?Z90.49 - Acquired absence of other specified parts of digestive tract (ICD- 10) H/O: hysterectomy ?Z90.710 - Acquired absence of both cervix and uterus (ICD-10) Social History (Updated 04/03/23 @ 12:08 by Marni Farley) Smoking status: Current every day smoker Non-prescribed substance use: denies use Highest level of school completed/degree received: high school graduate Little interest or pleasure in doing things: not at all Feeling down, depressed, or hopeless: not at all Exam Narrative Exam Narrative: Nurses note and vital signs reviewed and patient is not hypoxic. General:The patient appears well and in no apparent distress.Patient is resting comfortably on cart. Skin:Warm, dry, no pallor noted.There is no rash noted. Head:Normocephalic, atraumatic Eye: Normal conjunctiva, no drainage Ears, Nose, Mouth, and Throat: oral mucosa is moist. Nares patent. Cardiovascular:Regular Rate and Rhythm Respiratory:Patient is in no distress, no accessory muscle use, lungs are clear to auscultation, no wheezing, rales or rhonchi Back:non-tender GI: Soft and nondistended. Tenderness present in the epigastric area. Musculoskeletal: The patient has no evidence of calf tenderness, no pitting edema, symmetrical pulses noted bilaterally Neurological:A&O, normal speech Psychiatric:Cooperative Constitutional Vital Signs, click to edit/add: Last Vital Signs Temp 99.1 F 12/23/24 12:41 Pulse 106 H 12/23/24 15:20 Resp 16 12/23/24 15:20 BP 131/85 12/23/24 15:01 Pulse Ox 91 L 12/23/24 14:20 O2 Del Method Room Air 12/23/24 12:41 Course Vital Signs Vital signs: Vital Signs Temperature 99.1 F 12/23/24 12:41 Pulse Rate 120 H 12/23/24 12:41 Respiratory Rate 24 H 12/23/24 12:41 Blood Pressure 134/85 12/23/24 12:41 Pulse Oximetry 96 12/23/24 12:41 Oxygen Delivery Method Room Air 12/23/24 12:41 Temperature 99.1 F 12/23/24 12:41 Pulse Rate 106 H 12/23/24 15:20 Respiratory Rate 16 12/23/24 15:20 Blood Pressure 131/85 12/23/24 15:01 Pulse Oximetry 91 L 12/23/24 14:20 Oxygen Delivery Method Room Air 12/23/24 12:41 Medical Decision Making MDM Narrative Medical decision making narrative: Blood work is nonspecific. She was given a milligram of Dilaudid twice and is feeling improved and is able to be discharged home. She will follow-up with her specialist in [place]. Treatment diagnosis and follow-up were discussed with the patient. Differential Diagnosis Differential Diagnosis: Chronic abdominal pain, chronic pancreatitis, acute pancreatitis Lab Data Lab results reviewed: Yes I reviewed the patient's lab results Labs: Lab Results 12/23/24 12/23/24 Range/Units 13:16 14:25 WBC 10.8 (4.0-11.0) 10^3/uL RBC 4.72 (4.20-5.40) 10^6/uL Hgb 15.2 (12.0-16.0) g/dL Hct 45.1 (36.0-48.0) % MCV 95.6 (81.0-99.0) fL MCH 32.2 (26.7-34.0) pg MCHC 33.7 (29.9-35.2) g/dL RDW 12.1 (11.0-15.0) % Plt Count 208 (150-450) 10^3/uL MPV 9.9 (9.5-13.5) fL Neut % (Auto) 72.5 (43.0-75.0) % Lymph % (Auto) 17.6 L (20.5-60.0) % Spalding % (Auto) 8.8 (1.7-12.0) % Eos % (Auto) 0.4 L (0.9-7.0) % Baso % (Auto) 0.5 (0.2-2.0) % Neut # (Auto) 7.9 H (1.4-6.5) 10^3/uL Lymph # (Auto) 1.9 (1.2-3.8) 10^3/uL Spalding # (Auto) 1.0 H (0.3-0.8) 10^3/uL Eos # (Auto) 0.0 (0.0-0.7) 10^3/uL Baso # (Auto) 0.1 (0.0-0.1) 10^3/uL Abs Immat Gran (auto) 0.02 (0.00-0.03) 10^3/uL Imm/Tot Granulo (auto) 0.2 (0.0-0.5) % Sodium 135 L (136-145) mmol/L Potassium 3.9 (3.5-5.1) mmol/L Chloride 102 (98-107) mmol/L Carbon Dioxide 22.6 (21.0-32.0) mmol/L Anion Gap 14.3 BUN 22.0 H (7.0-18.0) mg/dL Creatinine 0.88 (0.55-1.02) mg/dL Est GFR ( Amer) >60 (>=60 mL/min/1.73m^2) Est GFR (Non-Af Amer) >60 (>=60 mL/min/1.73m^2) BUN/Creatinine Ratio 25.0 Glucose 120 H (74-106) mg/dL Calcium 10.2 H (8.5-10.1) mg/dL Total Bilirubin 0.2 (0.2-1.0) mg/dL Direct Bilirubin <0.1 (0.0-0.2) mg/dL AST 26 (15-37) U/L ALT 27 (14-59) U/L Alkaline Phosphatase 157 H (46-116) U/L Total Protein 7.9 (6.4-8.2) g/dL Albumin 4.1 (3.4-5.0) g/dL Globulin 3.8 g/dL Albumin/Globulin Ratio 1.1 Amylase 67 (25-115) U/L Lipase 32.0 (16.0-77.0) U/L Urine Color Yellow (YELLOW) Urine Clarity Clear (CLEAR) Urine pH 5.5 (5.0-9.0) Ur Specific Marshall >=1.030 A (1.005-1.025) Urine Protein Trace (NEG/TRACE) mg/dL Urine Glucose (UA) Negative (NEGATIVE) mg/dL Urine Ketones Negative (NEGATIVE) mg/dL Urine Occult Blood Negative (NEGATIVE) Urine Nitrite Negative (NEGATIVE) Urine Bilirubin Negative (NEGATIVE) Urine Urobilinogen 1.0 (0.2-1.0) EU/dL Ur Leukocyte Esterase Negative (NEGATIVE) Urine RBC None seen (0-2) #/HPF Urine WBC 0-2 A (NONE SEEN) #/HPF Ur Squamous Epith Cells Few A (NONE/RARE) #/LPF Urine Crystals None seen (None Seen) #/HPF Urine Bacteria Trace A (NONE SEEN) #/HPF Urine Casts None seen (NONE SEEN) #/LPF Urine Mucus Trace A (NONE SEEN) Discharge Plan Discharge Chief Complaint: Abdominal Pain Clinical Impression: Chronic abdominal pain Patient Disposition: Home, Self-Care Time of Disposition Decision: 15:48 Condition: Good Mode of Transportation: Private Vehicle Prescriptions / Home Meds: No Action ondansetron HCl 4 mg tablet 4 mg PO Q8H PRN (Reason: nausea and vomiting) omeprazole 40 mg capsule,delayed release(DR/EC) 40 mg PO Q8H amitriptyline 25 mg tablet 25 mg PO DAILY Creon 24,000-76,000 -120,000 unit capsule,delayed release(DR/EC) 1 cap PO TID Print Language: Irish Instructions: Chronic Abdominal Pain (DC) Referrals: [facility] [Primary Care Provider, Unknown] - 1 week
[2024-12-23] MEDS: HYDROMORPHONE HCL 1 MG/ML CARTRIDGE IV ×2 (13:17→15:14)
[2024-12-23 13:24] LABS: Hematocrit 45.1 % (36.0-48.0); Hemoglobin 15.2 g/dL (12.0-16.0); Immature Granulocytes Abs Auto 0.02 10^3/uL (0.00-0.03); Immature Granulocytes Pct Auto 0.2 % (0.0-0.5); Lymphocytes Absolute Auto 1.9 10^3/uL (1.2-3.8); Mean Corpuscular HGB Conc 33.7 g/dL (29.9-35.2); Mean Corpuscular Hemoglobin 32.2 pg (26.7-34.0); Mean Corpuscular Volume 95.6 fL (81.0-99.0); Red Blood Count 4.72 10^6/uL (4.20-5.40); White Blood Count 10.8 10^3/uL (4.0-11.0)
--- OUTSIDE RECORDS SUMMARY | 2024-12-23 13:42 | XMS_ITS | Encounter Summary ---
Author Organization [employer] Address [id number] [place] [address] Care Team Providers Care Lead Cook Name Role Phone Services, [facility] Primary Care Provider Encounter Details Date Type Department Care Team (Late st Contact Info) Description 05/29/2023 Telephone [facility] [address] [place] [address] Orlando Al MD [address] [place], [place] [id number] Social History Tobacco Use Types Packs/Day Years [...] on filedocumented in this encounter Care Teams Lead Cook Relationship Specialty Start Date End Date [facility], [facility] [address] [place], [place] PCP - General Family Medicine 05/31/24 documented as of this encounter
[2024-12-23 13:43] LABS: Alanine Aminotransferase 27 U/L (14-59); Albumin Globulin Ratio 1.1; Albumin Level 4.1 g/dL (3.4-5.0); Alkaline Phosphatase 157 U/L (46-116); Amylase 67 U/L (25-115); Anion Gap 14.3; Aspartate Amino Transferase 26 U/L (15-37); Blood Urea Nitrogen 22.0 mg/dL (7.0-18.0); Calcium 10.2 mg/dL (8.5-10.1); Carbon Dioxide 22.6 mmol/L (21.0-32.0); Chloride 102 mmol/L (98-107); Estimated GFR (African America >60 (>=60 mL/min/1.73m^2); Estimated GFR (Non-African Ame >60 (>=60 mL/min/1.73m^2); Globulin 3.8 g/dL; Glucose 120 mg/dL (74-106); Lipase 32.0 U/L (16.0-77.0); Potassium 3.9 mmol/L (3.5-5.1); Sodium 135 mmol/L (136-145); Total Protein 7.9 g/dL (6.4-8.2)
--- OUTSIDE RECORDS SUMMARY | 2024-12-23 13:44 | XMS_ITS | Clinical Summary ---
Author Organization [facility] Address [address] [place] [phone] Care Team Providers Care Photography Intern Name Role Phone Pineda Troy MD Unavailable [phone], Other Primary Care Provi mathew Allergies Active Allergy Reactions Criticality Noted Date Comments Fentanyl Hives High 09/12/2020 Haloperidol 06/02/2015 Panic attack Ibuprofen Hives,Swelling 10/30/2012 Morphine Hives Medium 07/15/2017 Penicillins Swelling 10/30/2012 Metoclopramide Anxiety 07/19/2016 Ketorolac Tromethamine Hives,Itching High 12/16/2021 Tramadol Hives Medium 10/23/2014 Medications Ergocalciferol 1.25 MG (57205 UT) capsule Take 1 capsule by mouth once a week. 8 capsule 05/11/2023 Active Pancreatic enzymes (Creon) 45[address] Particles capsule Take 3 capsules by mouth 2 times daily with meals. 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 Overview (11/28/2019): Added automatically from request for surgery [id number] Acute pancreatitis 09/25/2017 Pancreatitis 09/24/2017 Pancreatitis, chronic [...] 06/21/2019 LIPID SCREENING 09/25/2022 09/25/2017 COVID-19 VACCINE (3 - season) 2024, 08/28/2020 INFLUENZA VACCINE (#1) 2024 12/23/2015, 2014 Procedures Procedure Name Priority Date/Time Associated Diagnosis [...] MD CHEMISTRY ORDERABLES Final Result LAB, [facility] [address] [place] [address] from Last 3 Months or Most Recently Relevant to Health Maintenance [facility] Advance Directives For more information, please contact: [phone] (7:30 AM - 6PM [facility], Thursday-Thursday) * Full Code (Latest Code Status [...] 9:16 PM 07/01/2015 5:31 PM Care Teams Photography Intern Relationship Specialty Start Date End Date Pineda Troy MD PCP - Referring 1 Gastroenterology 09/25/17 [facility], [facility] [address] [place] [address] PCP - General 11/28/19
--- OUTSIDE RECORDS SUMMARY | 2024-12-23 13:44 | XMS_ITS | Clinical Summary ---
Author Organization [facility] Address [address], [address] [place] [address] Care Team Providers Care Flight Hostess Name Role Phone Unavailable Primary Care Provider [...] Problems Problem Noted Date Diagnosed Date Acute on chronic pancreatitis 08/22/2019 Resolved Problems Problem Noted Date Diagnosed Date Resolved Date Acute on chronic pancreatitis 11/06/2024 11/06/2024 Encounters Date Type Department Care Team Description 11/06/2024 6:24 PM EDT - 11/09/2024 10:24 AM EDT Hospital [facility] [address] [place], [place] [id number] Konstantin Salazar MD Acute pancreatitis, unspecified complication status, unspecified pancreatitis type (Primary Dx) Discharge Disposition: Left Against Medical Advice/Discontinuat ion of Care 11/06/2024 Travel 09/27/2024 10:41 AM EDT - 09/27/2024 2:09 PM EDT Emergency [facility] Emergency Department [address] [place] [address] Saida Augustine MD Abdominal pain, epigastric (Primary Dx); Nausea and vomiting, unspecified vomiting type Discharge Disposition: Home or Self Care 09/27/2024 Travel from Last 3 Months Social History Tobacco Use Types Packs/Day Years Used Date Smoking Tobacco: Former Cigarettes Smokeless Tobacco: Never Tobacco Cessation:Counseling Given: Not Answered Alcohol Use Standard Drinks/Week Comments No 0 (1 standard drink = 0.6 oz pur e alcohol) AUDIT-C Answer Date Recorded Q1: How often do you have a drink containing alcohol? Never 09/27/2024 Q2: How many drinks containi ng alcohol do you have on a typical day when you are drinking? Patient does not drink Q3: How often do you have si x or more drinks on one occasion? Never 09/27/2024 Housing Stability Vital Sign Answer Dmitriy e Recorded In the last 12 months, was t here a time when you were not able to pay the mortgage or rent on time? No 11/06/2024 In the past 12 months, how m any times have you moved where you were living? 0 11/06/2024 At any time in the past 12 m [facility], were you homeless or living in a fpc (including now)? No 11/06/2024 AUDIT-C Answer Date Recorded Q1: How often do you have a drink containing alcohol? Never 11/06/2024 Q2: How many drinks containi ng alcohol do you have on a typical day when you are drinking? Patient does not drink Q3: How often do you have si x or more drinks on one occasion? Never 11/06/2024 Hunger Vital Sign Answer Date Recorded Within the past 12 months, y ou worried that your food would run out before you got the money to buy more. Never true 11/07/19 25 Within the past 12 months, t he food you bought just didn't last and you didn't have money to get more. Never true 11/06/2024 PRAPARE - Transportation Answer Date Re corded In the past 12 months, has l ack of transportation kept you from medical appointments or from getting medications? No 10/09 In the past 12 months, has l ack of transportation kept you from meetings, work, or from getting things needed for daily living? No 11/06/2024 [facility] Utilities Answer Date Recorded In the past 12 months has th e [employer], gas, oil, or water company threatened to shut off services in your home? No 11/06/2024 Interpersonal Safety Domain Source: IP Abuse Scr eening Answer Date Recorded Physical abuse Denies 11/06/2024 Verbal abuse Denies 11/06/2024 Emotional abuse Denies 11/06/2024 Financial abuse Denies 11/06/2024 Sexual abuse Denies 11/06/2024 Comments No Sex and Gender Information Value Date Recorded Sex Assigned at Female 08/08/2024 6:02 PM EDT Legal Sex Female 10:20 AM EST Gender Identity Female 08/08/2024 6:02 PM EDT Sexual Orientation Straight 08/08/2024 6: 02 PM EDT Last Filed Vital Signs Vital Sign Reading Time Taken Comments Blood Pressure 131/84 11/09/2024 7:01 AM EDT Pulse 89 11/09/2024 7:01 AM EDT Temperature 36.8 C (98.3 F) 11/09/2024 7:01 AM EDT Respiratory Rate 16 11/09/2024 7:01 AM EDT Oxygen Saturation 97% 11/09/2024 7:01 AM EDT Inhaled Oxygen Concentration - - Weight 54.8 kg (120 lb 12.8 oz) 025 12:25 AM EDT Height 157.5 cm (5' 2 ) 11/07/2024 10:4 7 AM EDT Body Mass Index 22.09 11/07/2024 10:47 AM EDT Plan of Treatment Health Maintenance Due Date Last Done Comments Depression Screen 1981 HIV screen 1984 Hepatitis C screen 06/21/1987 DTaP/Tdap/Td vaccine (1 - Tdap) 1988 Hepatitis B vaccine (1 of 3 - 19+ 3-dose series) 1988 Lipids 2009 Breast cancer screen 01/01/2014 01/02/2012 Colonoscopy 2014 Colorectal Cancer Screen 2014 FIT/FOBT: Average risk 2014 Fecal-DNA (Cologuard): [place] ge risk 2014 Sigmoidoscopy/CT colonography 2014 Pneumococcal 50+ years Vacci ne (1 of 1 - PCV) 06/21/2019 Shingles vaccine (1 of 2) 06/21/2019 Flu vaccine (#1) 10/07/2024 12/23/2015, 12/15/2014 COVID-19 Vaccine (3 - 2024-2 6 season) 2024 09/18/2020, 08/28/2020 Hepatitis A vaccine Aged Out No longe [...] Procedure Name Priority Date/Time Associated Diagnosis Comments LIPASE Routine 11/09/2024 6:00 AM EDT COMPREHENSIVE METABOLIC PANEL W/ REFLEX TO MG FOR LOW K Routine 11/09/2024 6:00 AM EDT CBC WITH AUTO DIFFERENTIAL Routine 11/09/2024 6:00 AM EDT MRI ABDOMEN W WO CONTRAST MRCP STAT 11/08/2024 11:51 AM EDT LIPASE Routine 11/08/2024 5:45 AM EDT COMPREHENSIVE METABOLIC PANEL W/ REFLEX TO MG FOR LOW K Routine 11/08/2024 5:45 AM EDT CBC WITH AUTO DIFFERENTIAL Routine 11/08/2024 5:45 AM EDT EKG RHYTHM STRIP Routine 11/07/2024 6:00 AM EDT LIPASE Routine 11/07/2024 5:55 AM EDT COMPREHENSIVE METABOLIC PANEL W/ REFLEX TO MG FOR LOW K Routine 11/07/2024 5:55 AM EDT CBC WITH AUTO DIFFERENTIAL Routine 11/07/2024 5:55 AM EDT EKG RHYTHM STRIP Routine 11/07/2024 12:0 0 AM EDT EKG 12-LEAD Routine 11/06/2024 10:02 PM EDT LIPASE STAT 11/06/2024 7:34 PM EDT COMPREHENSIVE METABOLIC PANEL STAT 11/06/2024 7:34 PM EDT CBC WITH AUTO DIFFERENTIAL STAT 11/06/2024 7:34 PM EDT LACTIC ACID STAT 09/27/2024 11:50 AM EDT LIPASE STAT 09/27/2024 11:50 AM EDT COMPREHENSIVE METABOLIC PANEL STAT 09/27/2024 11:50 AM EDT CBC WITH AUTO DIFFERENTIAL STAT 09/27/2024 11:50 AM EDT from Last 3 Months Results * (ABNORMAL) Comprehensive Metabolic Panel w/ Reflex to MG (11/09/2024 6:00 AM EDT) Only the most recent of3 resultswithin the time period is included. Sodium 141 136 - 145 mmol/L 11/09/2024 6:00 AM EDT [facility] Potassium 3.7 3.7 - 5.3 mmol/L 11/09/2024 6:00 AM EDT [facility] Chloride 107 98 - 107 mmol/L 11/09/2024 6:00 AM [facility] CO2 22 20 - 31 mmol/L 11/09/2024 6:00 AM [facility] Anion Gap 12 9 - 16 mmol/L 11/09/2024 6:00 AM [facility] Glucose 98 74 - 99 mg/dL 11/09/2024 6:00 AM [facility] BUN 3(L) 6 - 20 mg/dL 11/09/2024 6:00 AM [facility] Creatinine 0.6 0.50 - 0.90 mg/dL 11/09/2024 6:00 AM [facility] Est, Glom Filt Rate >90 >60 mL/min/1.7 3m2 11/09/2024 6:00 AM [facility] Comment: These results are not intended [...] that affects renal tubular secretion. BUN/Creatinine Ratio 5(L) 9 - 20 11/09/2024 6:00 AM [facility] Calcium 8.9 8.6 - 10.4 mg/dL 11/09/2024 6:00 AM [facility] Total Protein 5.6(L) 6.6 - 8.7 g/dL 11/09/2024 6:00 AM [facility] Albumin 3.5 3.5 - 5.2 g/dL 11/09/2024 6:00 AM [facility] Albumin/Globulin Ratio 1.7 1.0 - 2.5 11/09/2024 6:00 AM [facility] Total Bilirubin 0.2 0.00 - 1.20 mg/dL 11/09/2024 6:00 AM [facility] Alkaline Phosphatase 186(H) 35 - 104 U/L 11/09/2024 6:00 AM EDT [facility] ALT 79(H) 10 - 35 U/L 11/09/2024 6:00 AM T [facility] AST 62(H) 10 - 35 U/L 11/09/2024 6:00 AM [facility] BLOOD SPECIMEN / Unknown 11/09/2024 6:00 AM EDT 11/09/2024 6:18 AM EDT us Konstantin Salazar MD CHEMISTRY ORDERABLES Nichol gamboa Result [facility] [address] [phone] * (ABNORMAL) CBC auto differential (11/09/2024 6:00 AM EDT) Only the most recent of5 resultswithin the time period is included. WBC 6.5 3.5 - 11.3 k/uL 11/09/2024 6:00 AM [facility] RBC 3.59(L) 3.95 - 5.11 m/uL 11/09/2024 6:00 AM [facility] Hemoglobin 11.9 11.9 - 15.1 g/dL 11/09/2024 6:00 AM [facility] Hematocrit 35.1(L) 36.3 - 47.1 % 11/09/2024 6:00 AM [facility] MCV 97.8 82.6 - 102.9 fL 11/09/2024 6:00 AM [facility] MCH 33.1 25.2 - 33.5 pg 11/09/2024 6:00 AM [facility] MCHC 33.9 28.4 - 34.8 g/dL 11/09/2024 6:00 AM [facility] RDW 12.3 11.8 - 14.4 % 11/09/2024 6:00 AM [facility] Platelets 144 138 - 453 k/uL 11/09/2024 6:00 AM [facility] MPV 9.8 8.1 - 13.5 fL 11/09/2024 6:00 AM [facility] NRBC Automated 0.0 0.0 per 100 WBC 11/09/2024 6:00 AM [facility] Neutrophils % 59 36 - 65 % 11/09/2024 6:00 AM [facility] Lymphocytes % 22(L) 24 - 43 % 11/09/2024 6:00 AM [facility] Monocytes % 15(H) 3 - 12 % 11/09/2024 6:00 AM [facility] Eosinophils % 3 1 - 4 % 11/09/2024 6:00 AM [facility] Basophils % 1 0 - 2 % 11/09/2024 6:00 AM [facility] Immature Granulocytes % 0 0 % 11/09/2024 6:00 AM [facility] Neutrophils Absolute 3.84 1.50 - 8.10 k/uL 11/09/2024 6:00 AM [facility] Lymphocytes Absolute 1.43 1.10 - 3.70 k/uL 11/09/2024 6:00 AM [facility] Monocytes Absolute 0.99 0.10 - 1.20 k/uL 11/09/2024 6:00 AM [facility] Eosinophils Absolute 0.17 0.00 - 0.44 k/uL 11/09/2024 6:00 AM [facility] Basophils Absolute 0.04 0.00 - 0.20 k/uL 11/09/2024 6:00 AM [facility] Immature Granulocytes Absolute <0.03 0.00 - 0.30 k/uL 11/09/2024 6:00 AM [facility] 11/09/2024 6:00 AM EDT 11/09/2024 6:18 AM EDT us Konstantin Salazar MD HEMATOLOGY ORDERABLES Fin al Result Performing Organization Address City/[facility]/ZIP Co de Phone Number [facility] [address] [phone] * Lipase (11/09/2024 6:00 AM EDT) Only the most recent of5 resultswithin the time period is included. Lipase 19 13 - 60 U/L 11/09/2024 6:00 AM EDT [facility] Blood BLOOD SPECIMEN / Unknown 11/09/2024 6:00 AM EDT 11/09/2024 6:18 AM EDT us Konstantin Salazar MD CHEMISTRY ORDERABLES Nichol l Result Performing Organization Address [facility] Co de Phone Number [facility] [address] [phone] * MRI ABDOMEN W WO CONTRAST MRCP (11/08/2024 11:51 AM EDT) Anatomical Region Laterality Modality Abdomen Magnetic Resonan ce 11/08/2024 2:38 PM EDT Impressions 11/08/2024 2:46 PM EDT 1. Mild intra and extrahepatic bile duct [...] status post cholecystectomy. 5. Prominent duodenal diverticula. Narrative 11/08/2024 2:46 PM EDT EXAMINATION: MRI OF THE ABDOMEN WITH AND [...] provided for review. These images were reviewed. Procedure Note Alexi Olivo MD - 11/08/2024 EXAMINATION: MRI OF THE ABDOMEN WITH AND WITHOUT CONTRAST AND MRCP 11/08/2024 11:29 am TECHNIQUE: Multiplanar multisequence MRI of the abdomen was performed with andwithout the administration of intravenous contrast. After initial T2 axial and coronal images, thick slab, thin slab and 3D coronal MRCP sequences were obtained without the administration of intravenous contrast. MIP imagesare provided for review. COMPARISON: CT abdomen 04/07/2024 HISTORY: Elevated LFTs. Acute on chronic pancreatitis Cholecystectomy FINDINGS: TECHNICAL: Several of the image series are significantly degraded,resulting from motion during study acquisition, blurring detail and resulting in misregistration artifact. Overall not a significant limiting factor forthe study. PANCREAS: Normal signal characteristics and morphology. No focalpancreatic parenchymal enhancement abnormality. GALLBLADDER: OTHER ORGANS: The spleen and adrenal glands appear unremarkable. Liverand kidneys appear unremarkable. MRCP: The common bile duct measures 11 mm; no choledocholithiasis or stricture evident.. The pancreatic duct is unchanged from prior studies,3-4 mm; no stone or stricture evident. PERITONEUM/RETROPERITONEUM: Unremarkable appearance of the aorta. No aneurysm. Unremarkable appearance of the IVC. No adenopathy or fluid. BONES/SOFT TISSUES: Unremarkable appearance. LOWER CHEST: Visualized portions of the lungs are clear. Cardiac and posterior mediastinal structures visualized are unremarkable. VISUALIZED GI/BOWEL: Prominent duodenal diverticulum. 3D images: 3D reconstructed images were performed on a separateworkstation and provided for review. These images were reviewed. IMPRESSION: 1. Mild intra and extrahepatic bile duct dilatation status post cholecystectomy typical of reservoir effect. 2. Unremarkable appearance of the pancreas. 3. Unchanged appearance of the biliary tree, no choledocholithiasis or stricture. 4. Stable appearance of the pancreas without discrete lesion orsignificant pancreatic duct dilatation. Upper normal to mild pancreatic ductdilatation is stable almost certainly related to reservoir effect status post cholecystectomy. 5. Prominent duodenal diverticula. us Carley Anne STRAIN TECHNICIAN - SPECIALTY FINISHING UTILITY PERSON IMG MRI ORDER DARIO Final Result * EKG Rhythm Strip (11/07/2024 6:00 AM EDT) Only the most recent of2 resultswithin the time period is included. 11/07/2024 6:00 AM EDT Narrative [facility] - 11/07/2024 6:18 AM EDT us Unknown Provider Result ECG ORDERABLES Final Re sult [facility] [address] [phone] * EKG 12 lead (11/06/2024 10:02 PM EDT) Ventricular Rate 78 BPM [facility] Atrial Rate 78 BPM [facility] P-R Interval 136 ms [facility] QRS Duration 74 ms [facility] Q-T Interval 356 ms [facility] QTc Calculation (Bazett) 405 ms [facility] P Crowell 54 degrees [facility] R Crowell 30 degrees [facility] T Crowell 40 degrees [facility] 11/06/2024 10:0 2 PM EDT Narrative [facility] - 11/08/2024 10:43 AM EDT Normal sinus rhythm Normal ECG When compared with ECG of 07-Jan-2024 14:42, No significant change was found Confirmed by Rashaun Cespedes ([id number]) on 11/08/2024 10:43:20 AM Procedure Note Rashaun Cespedes MD - 11/08/2024 Normal sinus rhythm Normal ECG When compared with ECG of 07-Jan-2024 14:42, No significant change was found Confirmed by Rashaun Cespedes ([id number]) on 11/08/2024 10:43:20 AM Konstantin Salazar MD ECG ORDERABLES Final Res ult [facility] * (ABNORMAL) CMP (11/06/2024 7:34 PM EDT) Only the most recent of2 resultswithin the time period is included. Sodium 140 136 - 145 mmol/L 11/06/2024 7:34 PM EDT [facility] Potassium 3.7 3.7 - 5.3 mmol/L 11/06/2024 7:34 PM [facility] Chloride 104 98 - 107 mmol/L 11/06/2024 7:34 PM [facility] CO2 24 20 - 31 mmol/L 11/06/2024 7:34 PM [facility] Anion Gap 12 9 - 16 mmol/L 11/06/2024 7:34 PM [facility] Glucose 97 74 - 99 mg/dL 11/06/2024 7:34 PM [facility] BUN 7 6 - 20 mg/dL 11/06/2024 7:34 PM [facility] Creatinine 0.8 0.50 - 0.90 mg/dL 11/06/2024 7:34 PM [facility] Est, Glom Filt Rate 84 >60 mL/min/1.7 3m2 11/06/2024 7:34 PM [facility] Comment: These results are not intended [...] that affects renal tubular secretion. BUN/Creatinine Ratio 9 9 - 20 11/06/2024 7:34 PM EDT [facility] Calcium 10.4 8.6 - 10.4 mg/dL 11/06/2024 7:34 PM EDT [facility] Total Protein 7.3 6.6 - 8.7 g/dL 11/06/2024 7:34 PM EDT [facility] Albumin 4.4 3.5 - 5.2 g/dL 11/06/2024 7:34 PM EDT [facility] Albumin/Globulin Ratio 1.5 1.0 - 2.5 11/06/2024 7:34 PM EDT [facility] Total Bilirubin <0.2 0.00 - 1.20 mg/dL 11/06/2024 7:34 PM EDT [facility] Alkaline Phosphatase 145(H) 35 - 104 U/L 11/06/2024 7:34 PM EDT [facility] ALT 13 10 - 35 U/L 11/06/2024 7:34 PM EDT [facility] AST 26 10 - 35 U/L 11/06/2024 7:34 PM EDT [facility] Blood BLOOD SPECIMEN / Unknown 11/06/2024 7:34 PM EDT 11/06/2024 7:41 PM EDT David Malloy II, PA-C CHEMISTRY ORDERABLES Nichol l Result [facility] [address] [phone] * Lactic Acid (09/27/2024 11:50 AM EDT) Lactic Acid 1.0 0.5 - 2.2 mmol/L 09/27/2024 11:50 AM EDT [facility] 09/27/2024 11:5 0 AM EDT 09/27/2024 12:00 PM EDT Saida Augustine MD CHEMISTRY ORDERABLES Final Res ult [facility] [address] [place] [address], [facility] [phone] from Last 3 Months Insurance [employer] Advance Directives * Full Code (Latest Code Status on File) Date Activated Date Inactivated Comments 11/06/2024 9:58 PM 11/09/2024 12:30 PM * Full Code Date Activated Date Inactivated Comments 08/22/2019 4:27 PM 08/25/2019 12:21 PM Healthcare Agents on File Name Relationship Healthcare Agent [facility] Justino Demian Spouse Primary Decision Maker
--- OUTSIDE RECORDS SUMMARY | 2024-12-23 13:44 | XMS_ITS | Clinical Summary ---
Author Organization [employer] tem Address [facility] [id number] [address] [place] [address] Care Team Providers Care Cabin Outfitter Name Role Phone Services, Formerly [facility], [facility]–1983 Primary Care Provider Allergies Active Allergy Reactions [...] tablet Take 25 mg by mouth. 12/01/19 Active amitriptyline (ELAVIL) 25 mg tablet Take 1 tablet (25 mg total) by mouth nightly. 15 tablet 15 08/27/19 Active nucehh-skwagqbe-xy ylase (CREON) 12,000-38,000 -60,000 unit capsule,delayed release(DR/EC) capsule Take 1 capsule (12,000 units of lipase total) by mouth in the morning and 1 capsule (12,000 units of lipase total) at noon and 1 capsule (12,000 units of lipase total) in the evening. Take with meals. Active famotidine (PEPCID) 20 mg tablet Take [...] Encounters Date Type Department Care Team Description 12/08/2024 8:16 PM EDT - 12/08/2024 10:57 PM EDT Emergency [facility] - Emergency [address] [place] [address] Rudy Bautista MD Chronic abdominal pain (Primary Dx); Nausea and vomiting, unspecified vomiting type Discharge Disposition: Home 12/08/2024 Travel 10/26/2024 7:16 PM EDT - 10/26/2024 8:07 PM EDT Emergency [facility] - Emergency [address] [place] [address] Aydin Wilson MD Chronic abdominal pain (Primary Dx) Discharge Disposition: Home 10/26/2024 Travel 10/11/2024 5:18 AM EDT - 10/11/2024 8:12 AM EDT Emergency [facility] - Emergency [address] [place] [address] Barry Ashford DO Chronic abdominal pain (Primary Dx); Chronic pancreatitis, unspecified pancreatitis type ([facility]) Discharge Disposition: Home 10/11/2024 Travel from Last 3 Months Family History [...] Mass Index 21.95 12/08/2024 8:22 PM EDT Plan of Treatment Health Maintenance Due Date Last Done Comments Depression Screening 1981 DTaP,Tdap and Td Vaccines (1 - Tdap) 1988 Zoster (Shingles) Vaccine (1 of 2) 06/21/2019 COVID-19 Vaccine (3 - season) 2024, 08/28/2020 Influenza Vaccine 11/07/2024 12/23/2015, 12/15/2014 Adult BMI Screening 12/08/2025 12/08/2024 Tobacco Screening 12/08/2025 12/08/2024 Pap Smear Discontinued 12/11/2011 Medical Devices Not on file Procedures Procedure Name Priority Date/Time Associated Diagnosis Comments CT ABDOMEN AND PELVIS W CONT STAT 12/08/2024 9:17 PM EDT BLUE TOP STAT 12/08/2024 8:38 PM EDT RAINBOW DRAW STAT 12/08/2024 8:38 PM EDT MAGNESIUM STAT 12/08/2024 8:38 PM EDT LIPASE STAT 12/08/2024 8:38 PM EDT LACTATE W/ REFLEX STAT 12/08/2024 8:3 8 PM EDT COMPREHENSIVE METABOLIC PANEL STAT 12/08/2024 8:38 PM EDT CBC WITH AUTO DIFFERENTIAL STAT 12/08/2024 8:38 PM EDT ETHANOL STAT 10/11/2024 5:52 AM EDT MAGNESIUM STAT 10/11/2024 5:52 AM EDT LIPASE STAT 10/11/2024 5:52 AM EDT LIVER PANEL STAT 10/11/2024 5:52 AM EDT BASIC METABOLIC PANEL STAT 10/11/2024 5:52 AM EDT APTT STAT 10/11/2024 5:52 AM EDT PROTIME & INR STAT 10/11/2024 5:52 AM EDT CBC WITH AUTO DIFFERENTIAL STAT 10/11/2024 5:52 AM EDT from Last 3 Months Results * CT abdomen and pelvis with [...] Chi Brooks MD on 12/08/2024 9:58 PM Grover Christopher MD have personally reviewed the image(s) and [...] Grover Arce MD on 12/08/2024 10:27 PM Marya CARDENAS IMG CT ORDERABLES Final Re sult * Lactate w/ Reflex (12/08/2024 8:38 PM EDT) Pathologist [facility] [place] LACTATE W/REFLEX 1.4 0.4 - 2.0 mmol/L 12/08/2024 9:04 PM EDT [facility] Blood Venous blood / Unknown 12/08/2024 8:38 PM EDT 12/08/2024 8:43 PM EDT Narrative [facility] - 12/08/2024 9:04 PM EDT Result did not trigger repeat Lactate, re-order if needed. Marya CARDENAS LAB BLOOD ORDERABLES Final Result [facility] [address] [place] [address], [place] * (ABNORMAL) CBC auto differential (12/08/2024 8:38 PM EDT) Only the most recent of2 resultswithin the time period is included. Pathologist [facility] [place] WBC 11.6(H) 4 - 11 x10E9/L 12/08/2024 8:55 PM EDT [facility] RBC Count 4.75 3.8 - 5.2 X10E12/L 12/08/2024 8:55 PM EDT [facility] Hemoglobin 15.4 11.7 - 15.5 g/dL 12/08/2024 8:55 PM EDT [facility] Hematocrit 44.9 35 - 47 % 12/08/2024 8:55 PM EDT [facility] MCV 95 80 - 100 fL 12/08/2024 8:55 PM EDT [facility] MCH 32.4 27 - 34 pg 12/08/2024 8:55 PM EDT [facility] MCHC 34.3 32 - 36 g/dL 12/08/2024 8:55 PM EDT [facility] RDW 13.1 11.5 - 15 % 12/08/2024 8:55 PM EDT [facility] Platelet Count 404 150 - 450 X10E9/L 12/08/2024 8:55 PM EDT [facility] MPV 7.8 7 - 12 fL 12/08/2024 8:55 PM EDT [facility] Neutrophils % 62.8 % 12/08/2024 8:55 PM EDT [facility] Lymphocytes % 27.5 % 12/08/2024 8:55 PM EDT [facility] Monocytes % 8.1 % 12/08/2024 8:55 PM EDT [facility] Eosinophils % 0.6 % 12/08/2024 8:55 PM EDT [facility] Basophils % 1.0 % 12/08/2024 8:55 PM EDT [facility] Neutrophils Absolute (A) 7.3(H) 1.5 - 6.6 10*3/uL 12/08/2024 8:55 PM EDT [facility] Lymphocytes Absolute 3.2 1.0 - 3.5 10*3/uL 12/08/2024 8:55 PM EDT [facility] Monocytes Absolute 0.9 0.0 - 0.9 10*3/uL 12/08/2024 8:55 PM EDT [facility] Eosinophils Absolute 0.1 0.0 - 0.4 10*3/uL 12/08/2024 8:55 PM EDT [facility] Basophils Absolute 0.1 0.0 - 0.2 10*3/uL 12/08/2024 8:55 PM EDT [facility] Differential Type AUTOMATED DIFFERENTIAL 12/08/2024 8:55 PM EDT [facility] Blood Venous blood / Unknown 12/08/2024 8:38 PM EDT 12/08/2024 8:43 PM EDT us Marya Cat APRNDANGELO LAB BLOOD ORDERABLES Final Result [address] [place] [address], [place] * Light Blue Top (12/08/2024 8:38 PM EDT) Extra Tube Auto Resulted 12/08/2024 10:02 PM EDT [facility] Blood Venous blood / Unknown 12/08/2024 8:38 PM EDT 12/08/2024 8:43 PM EDT us Rudy Bautista MD LAB BLOOD ORDERABLES Final R esult [address] [place] [address], [place] * Magnesium (12/08/2024 8:38 PM EDT) Only the most recent of2 resultswithin the time period is included. MAGNESIUM 2.2 1.8 - 2.6 mg/dL 12/08/2024 9:02 PM EDT [facility] Blood Venous blood / Unknown 12/08/2024 8:38 PM EDT 12/08/2024 8:43 PM EDT Marya Cat OIL AND GAS LEASE PUMPER-LEGAL CLERK LAB BLOOD ORDERABLES Final Result [address] [place] [address], [place] * (ABNORMAL) Lipase (12/08/2024 8:38 PM EDT) Only the most recent of2 resultswithin the time period is included. LIPASE 66(H) 17 - 40 U/L 12/08/2024 9:00 PM EDT [facility] Blood Venous blood / Unknown 12/08/2024 8:38 PM EDT 12/08/2024 8:43 PM EDT Marya Cat OIL AND GAS LEASE PUMPER-LEGAL CLERK LAB BLOOD ORDERABLES Final Result Performing Organization Address City/[facility]/ZIP Co de Phone Number [address] [place] [address], [place] * (ABNORMAL) Comprehensive metabolic panel (12/08/2024 8:38 PM EDT) SODIUM 138 134 - 146 mmol/L 12/08/2024 9:02 PM EDT [facility] POTASSIUM 3.8 3.5 - 5.0 mmol/L 12/08/2024 9:02 PM EDT [facility] CHLORIDE 104 98 - 109 mmol/L 12/08/2024 9:02 PM EDT [facility] CARBON DIOXIDE 21(L) 22 - 32 mmol/L 12/08/2024 9:02 PM EDT [facility] ANION GAP 13 5 - 15 mmol/L 12/08/2024 9:02 PM EDT [facility] BLOOD UREA NITROGEN 11 5 - 23 mg/dL 12/08/2024 9:02 PM EDT [facility] CREATININE 0.79 0.40 - 1.00 mg/dL 12/08/2024 9:02 PM EDT [facility] Comment:METHOD TRACEABLE TO IDMS STANDARD GLUCOSE 114(H) 65 - 99 mg/dL 12/08/2024 9:02 PM EDT [facility] CALCIUM 10.3 8.5 - 10.5 mg/dL 12/08/2024 9:02 PM EDT [facility] TOTAL PROTEIN 8.5(H) 6.0 - 8.0 g/dL 12/08/2024 9:02 PM EDT [facility] ALBUMIN 4.5 3.2 - 5.3 g/dL 12/08/2024 9:02 PM EDT [facility] ALKALINE PHOSPHATASE 156(H) 39 - 130 U/L 12/08/2024 9:02 PM EDT [facility] AST 23 <=41 U/L 12/08/2024 9:02 PM EDT [facility] ALT 21 <=31 U/L 12/08/2024 9:02 PM EDT [facility] BILIRUBIN,TOTAL 0.4 0.3 - 1.2 mg/dL 12/08/2024 9:02 PM EDT [facility] EGFR Non-Race Dependent 88 >=60 ml/min/1.7 3sq.m 12/08/2024 9:02 PM EDT [facility] Comment: eGFR not reported due to non-numeric value for Creatinine. Reported eGFR is based on the CKD-EPI 2020 equation that does not use a race coefficient. Blood Venous blood / Unknown 12/08/2024 8:38 PM EDT 12/08/2024 8:43 PM EDT us Marya Cat OIL AND GAS LEASE PUMPER-LEGAL CLERK LAB BLOOD ORDERABLES Final Result [facility] [address] [place] [address], [place] * APTT (10/11/2024 5:52 AM EDT) APTT 28 26 - 37 sec 10/11/2024 6:05 AM EDT [facility] Blood Venous blood / Unknown Venipuncture / Unknown 10/11/2024 5:52 AM EDT 10/11/2024 5:53 AM EDT us Barry Trager DO LAB BLOOD ORDERABLES Final Res ult Performing Organization Address [facility] Co de Phone Number [address] [place] [address], [place] * Protime & INR (10/11/2024 5:52 AM EDT) PROTIME 10.3 9.8 - 13.2 sec 10/11/2024 6:05 AM EDT [facility] INR 0.9 0.9 - 1.2 10/11/2024 6:05 AM EDT [facility] Blood Venous blood / Unknown Venipuncture / Unknown 10/11/2024 5:52 AM EDT 10/11/2024 5:53 AM EDT us Mopioger DO LAB BLOOD ORDERABLES Final Res ult Performing Organization Address [facility] de Phone Number [address] [place] [address], [place] * Ethanol (10/11/2024 5:52 AM EDT) ETHANOL <0.010 <=0.080 g/dL 10/11/2024 7:25 AM EDT [facility] Comment: This report is intended for use in clinical monitoring or management of patients. Blood Venous blood / Unknown Venipuncture / Unknown 10/11/2024 5:52 AM EDT 10/11/2024 5:53 AM EDT us Barry Trager DO LAB BLOOD ORDERABLES Final Res ult Performing Organization Address City/[facility]/ZIP Co de Phone Number [facility] [address] [place] [address], [place] * (ABNORMAL) Liver panel (10/11/2024 5:52 AM EDT) TOTAL PROTEIN 6.8 6.0 - 8.0 g/dL 10/11/2024 6:14 AM EDT [facility] ALBUMIN 3.9 3.2 - 5.3 g/dL 10/11/2024 6:14 AM EDT [facility] BILIRUBIN,TOTAL 0.2(L) 0.3 - 1.2 mg/dL 10/11/2024 6:14 AM EDT [facility] ALKALINE PHOSPHATASE 111 39 - 130 U/L 10/11/2024 6:14 AM EDT [facility] AST 22 <=41 U/L 10/11/2024 6:14 AM EDT [facility] ALT 12 <=31 U/L 10/11/2024 6:14 AM EDT [facility] BILIRUBIN,DIRECT 0.1 <=0.4 mg/dL 10/11/2024 6:14 AM EDT [facility] Blood Venous blood / Unknown Venipuncture / Unknown 10/11/2024 5:52 AM EDT 10/11/2024 5:53 AM EDT us Barry Ashford DO LAB BLOOD ORDERABLES Final Res ult Performing Organization Address City/[facility]/ZIP Co de Phone Number [facility] [address] [place] [address], [place] * Basic Metabolic Panel (10/11/2024 5:52 AM EDT) Pathologist [facility] SODIUM 136 134 - 146 mmol/L 10/11/2024 6:14 AM EDT [facility] POTASSIUM 3.9 3.5 - 5.0 mmol/L 10/11/2024 6:14 AM EDT [facility] CHLORIDE 106 98 - 109 mmol/L 10/11/2024 6:14 AM EDT [facility] CARBON DIOXIDE 25 22 - 32 mmol/L 10/11/2024 6:14 AM EDT [facility] ANION GAP 5 5 - 15 mmol/L 10/11/2024 6:14 AM EDT [facility] BLOOD UREA NITROGEN 10 5 - 23 mg/dL 10/11/2024 6:14 AM EDT [facility] CREATININE 0.80 0.40 - 1.00 mg/dL 10/11/2024 6:14 AM EDT [facility] Comment:METHOD TRACEABLE TO IDMS STANDARD GLUCOSE 98 65 - 99 mg/dL 10/11/2024 6:14 AM EDT [facility] CALCIUM 9.3 8.5 - 10.5 mg/dL 10/11/2024 6:14 AM EDT [facility] EGFR Non-Race Dependent 87 >=60 ml/min/1.7 3sq.m 10/11/2024 6:14 AM EDT [facility] Comment: eGFR not reported due to non-numeric value for Creatinine. Reported eGFR is based on the CKD-EPI 2020 equation that does not use a race coefficient. Blood Venous blood / Unknown Venipuncture / Unknown 10/11/2024 5:52 AM EDT 10/11/2024 5:53 AM EDT us Barry Ashford DO LAB BLOOD ORDERABLES Final Res ult [facility] [address] [place] [address], from Last 3 Months Insurance [facility] MED[facility] Care Teams Cabin Outfitter Relationship Specialty Start Date End Date Services, [facility]ly [facility], [facility]–1983 [address] [place], [place] PCP - General Family Medicine 05/31/24
--- OUTSIDE RECORDS SUMMARY | 2024-12-23 13:44 | XMS_ITS | Encounter Summary ---
Author Organization [facility] Address [facility] [id number] [address] [place] [address] Care Team Providers Care Pharmacy Graduate Intern Name Role Phone [facility] Primary Care Provider Encounter Details Date Type Department Care Team (Late st Contact Info) Description 11/20/2020 Orders Only [facility] [address] [place] [address] [address] [place] [address] Yecenia Overton, END MAKER-PRODUCTION RECOVERY OPERATOR [address] [place] [address] Social History Tobacco Use Types Packs/Day Years [...] on filedocumented in this encounter Care Teams Pharmacy Graduate Intern Relationship Specialty Start Date End Date Services, [facility] [address] [place], [place] PCP - General Family Medicine 05/31/24 documented as of this encounter
--- OUTSIDE RECORDS SUMMARY | 2024-12-23 13:44 | XMS_ITS | Encounter Summary ---
Author Organization [facility] enter Address [address] [place] [address] Care Team Providers Care Cardiology Nurse Practitioner Name Role Phone Jemma Joseph MD Unavailable Elie Nichols MD Primary Care Provider [phone] Pineda Fernandez MD Unavailable [phone] [facility], Other Primary Care Provi mathew Reason for Referral * Radiology (Routine) - Closed Specialty Diagnoses / Procedures Referred By Zia espinal Referred To Contact Diagnoses Alcohol-induced chronic pancreatitis Procedures CASE REQUEST - ENDOSCOPY Pineda Fernandez MD Phone: tel: fax: Referral ID Status Reason Start Date Expiration Date Visits Re quested Visits Authorized [id number] Closed 04/07/2016 05/02/2017 1 1 Reason for Visit * Reason Onset Date Comments Condition Update 03/31/2016 Encounter Details Date Type Department Care Team (Late st Contact Info) Description 03/31/2016 Telephone Gastroenterology and Hepatology [facility] [address] [address] Minoo Parham Condition Update Social [...] call from scheduling. I spoke with pt's ([phone]- Magdy Nolan) who states that pt had a [...] is requesting nurse/md call Bernice goldman t [phone]. If she doesn't answer please leave a message. documented in this encounter Plan of Treatment Not on file documented as of this encounter Visit Diagnoses Diagnosis Alcohol-induced chronic pancreatitis- Primary Chronic pancreatitis documented in this encounter Additional Health Concerns Infection Onset Date Last Indicated Resolved Time COVID-19 Suspected 11/28/2019 11/28/2019 0 4:32 AM EDT documented as of this encounter Care Teams Cardiology Nurse Practitioner Relationship Specialty Start Date End Date Elie Nichols MD [address] [place] [address] PCP - General Internal Medicine 12/24/15 11/27/19 Pineda Fernandez MD [address] [place] [address] PCP - Referring 1 Gastroenterology 09/25/17 [facility], Other [address] [place] [address] PCP - General 11/28/19 Jemma Joseph MD Family Medicine 12/11/14 09/24/17 documented as of this encounter
--- OUTSIDE RECORDS SUMMARY | 2024-12-23 13:44 | XMS_ITS | Encounter Summary ---
Author Organization [facility] Address [address] [place] [address] Care Team Providers Care Recording Clerk Name Role Phone Jemma Joseph MD Unavailable [phone] Elie Nichols MD Primary Care Provider [phone] Pineda Troy MD Unavailable [phone] [facility], Other Primary Care Provi mathew Reason for Visit * Reason Onset Date Comments Information Update 12/24/2015 Encounter Details Date Type Department Care Team (Late st Contact Info) Description 12/24/2015 Telephone Gastroenterology and Hepatology [facility] [address] [address] Irasema Bruce Information Update Social [...] currently inpatient @ . Pt cb # [phone] documented in this encounter Plan of Treatment Not on file documented as of this encounter Visit Diagnoses Not on filedocumented in this encounter Additional Health Concerns Infection Onset Date Last Indicated Resolved Time COVID-19 Suspected 11/28/2019 11/28/2019 0 4:32 AM EDT documented as of this encounter Care Teams Recording Clerk Relationship Specialty Start Date End Date Elie Nichols MD [address] [place] [address] PCP - General Internal Medicine 12/24/15 11/27/19 Pineda Troy MD [address] [place] [address] PCP - Referring 1 Gastroenterology 09/25/17 [facility], Other [address] [place] [address] PCP - General 11/28/19 Jemma Joseph MD Family Medicine 12/11/14 09/24/17 documented as of this encounter
--- OUTSIDE RECORDS SUMMARY | 2024-12-23 13:44 | XMS_ITS | Encounter Summary ---
Author Organization [facility] Address [facility] [id number] [address] [place] [address] Care Team Providers Care Boat Tender Name Role Phone Services, [facility] Primary Care Provider Encounter Details Date Type Department Care Team (Late st Contact Info) Description 05/22/2023 Orders Only [facility] Cardiology [address] [place] [phone] External, Scanning Provider Social History Tobacco Use [...] 10:38 AM EDT) us Scanning Provider External [place] [facility] Final Result Performing Organization Address [place]/[facility] Phone Number MANUALLY TRANSCRIBED RESULTS * X-ray chest 1 view (11/19/2022 10:37 AM EDT) Anatomical Region Laterality Modality Body, Chest N/A Computed Radiogr aphy us Scanning Provider External IMG DIAGNOSTIC IMAGIN G ORDERABLES Final Result * ECG 12 lead (11/19/2022 10:28 AM EDT) us Scanning Provider External ECG ORDERABLES Final Result Performing Organization Address [facility] Phone Number MANUALLY TRANSCRIBED RESULTS * Multiple labs (10/14/2022 10:40 AM EDT) us Scanning Provider External [place] [facility] Final Result Performing Organization Address [facility] de Phone Number MANUALLY TRANSCRIBED RESULTS * Multiple labs (08/27/2022 10:41 AM EDT) us Scanning Provider External [place] [facility] Final Result Performing Organization Address [place]/[facility] de Phone Number MANUALLY TRANSCRIBED RESULTS * [...] ECG ORDERABLES Final Result Performing Organization Address City/[facility] Co de Phone Number MANUALLY TRANSCRIBED RESULTS documented in this encounter Visit Diagnoses Not on filedocumented in this encounter Care Teams Boat Tender Relationship Specialty Start Date End Date Services, [facility] [address] [place], [place] PCP - General Family Medicine 05/31/24 documented as of this encounter
--- OUTSIDE RECORDS SUMMARY | 2024-12-23 13:44 | XMS_ITS | Encounter Summary ---
Author Organization [facility] enter Address [address] [place] [address] Care Team Providers Care Veneer Stacker Name Role Phone Pineda Troy MD Unavailable [phone] [facility], Other Primary Care Provi mathew Reason for Visit * Reason Onset Date Comments Other 03/27/2020 Encounter Details Date Type Department Care Team (Late st Contact Info) Description 03/27/2020 Telephone Gastroenterology and Hepatology [facility] [address] [place] [address] [place] [address] Maggie Abreu Other Social History [...] [facility] based on encounter note 03/26/2020. Gen [facility] called to initiate transfer to [facility] (patient is established). [place] will call the [facility] transfer center and get back with us. Patient is currently admitted * Telephone Encounter - Maggie Abreu - 03/27/2020 11:08 AM EST Provider: Dr. Dee Subject of call: Admitted up-date request Reason for call: Pt spouse David called advised pt went to ER 03/26/20 [facility] for chronic pancreatis. Pt had blood work , CT scan and urine test. Hospital advised it could possibly be agall stone, but sure pt is having a blockage in the pancreas. [facility] wouldn't admit due to they don't specialize in gastroenterology. Pt spouse requesting a call to have pt admitting status to [facility]. Transferred pt to direct admit staff. Preferred call back time: [phone] documented in this encounter Plan of Treatment Not on file documented as of this encounter Visit Diagnoses Not on filedocumented in this encounter Care Teams Veneer Stacker Relationship Specialty Start Date End Date Pineda Troy MD PCP - Referring 1 Gastroenterology 09/25/17 [facility], Other [address] [place] [address] PCP - General 11/28/19 documented as of this encounter
--- OUTSIDE RECORDS SUMMARY | 2024-12-23 13:46 | XMS_ITS | CCD ---
Author Organization [facility] Care Team Providers Care Insurance Claims Processor Name Role Phone AlbertaDarrickimani Unavailable ALBERTA ALEXANDER Unavailable Unavailable [facility] KAYLEIGH, GENERIC Unavailable Unavailable [facility] KAYLEIGH, GENERIC Unavailable Unavailable RUPINDER NEGROI Unavailable Unavailable LIDARRICKWA Unavailable Unavailable MARIO MENDES Unavailable Unavailable LIALEXANDER Unavailable Unavailable SARAH WALTON Unavailable Unavaila ble ALEXANDER NICHOLS Unavailable Unavailable KEERTHI NGUYEN Unavailable Unavailable [facility] KAYLEIGH, GENERIC Unavailable Unavailable KEERTHI NGUYEN Unavailable Unavailable LI DARRICKWA Unavailable Unavailable [facility], [facility] Unavailable Unav ailable EUGENIA SHELTON Unavailable Unavailable [facility], [facility] Unavailable Unav ailable Unavailable Primary Care Provider Unavailflorida Nichols Alexander Primary Care Provider Unavailable Primary Care Provider UnavailMarya Guajardo Unavailable NON STAFF Primary Care Provider UnavailDO Keaton Thompson Emergency Provider SALMA Amor Emergency Provider SALMA Lopez Emergency Provider Woodrow ALEXANDER, Pineda Espinal Unavailable [facility], Other Primary Care Provi mathew NON STAFF Primary Care Provider MD Agustin Baker Emergency Provider DR TRI HANSON Consulting Unavailable ARIC CHAUDHARY Attending Unavailable ARIC CHAUDHARY Admitting Unavailable [facility] Primary Care Unavailable JANUSZ ., ARIC Consulting Unavailable AGUSTIN MADRIGAL Consulting Unavailable YANNI FRASER Attending Unavailable YANNI FRASER Admitting Unavailable [facility] Primary Care Unavailable HEBERT MCPHERSON Consulting Unavailable AMINATA, DR RAJEEV Chan Consulting Unavailable AMINATA, DR RAJEEV Chan Attending Unavailable AMINATA, DR RAJEEV Chan Admitting Unavailable [facility] Primary Care Unavailable JANNY ., ANKIT BOYKIN Consulting [facility] I[facility]Y ., MONIK Attending Unavailable IGGY ., MONIK Admitting Unavailable GRECHNY ., ANKIT BOYKIN [facility] Unavailable ANNELIESE, NICK Consulting Unavailable JANUSZ ., ARIC Consulting Unavailable AGUSTIN HIGHTOWER Consulting Unavailable ROLAN EUCEDA Consulting Unavailable AMINATA, DR RAJEEV Chan Consulting Unavailable BRIANNA, DR SHARON Silveira Attending [facility] REINECK, DR SHARON Silveira Admitting [facility] Unavailable BRIANNA, DR SHARON Silveira Consulting [facility] HANS ., NAT Consulting Unavailable HANS [...] Admitting Unavailable JANUSZ ., ARIC Consulting Unavailable [facility] Primary Care Unavailable ION KRUSE Consulting Unavailable YANNI FRASER Attending Unavailable YANNI FRASER Admitting Unavailable JANNY ., ANKIT BOYKIN Consulting [facility] Care Unavailable LYNNE PERDOMO Consulting Unavailable JANUSZ ., ARIC Attending Unavailable JANUSZ ., ARIC Admitting Unavailable [facility] Primary Care Unavailable JANUSZ ., [...] STAFF Primary Care Provider Unavailabl e Saffle, ELECTRONIC TRAIN CONTROL TECHNICIAN Diomedes Serrano Emergency Provider NON STAFF Primary Care Provider Unavailabl e Saffle, ELECTRONIC TRAIN CONTROL TECHNICIANZach Serrano Emergency Provider DO Rivera Lopez Emergency Provider MD Darrel Kellogg Emergency Provider Pineda Troy MD Unavailable [phone] [facility], Other Primary Care Provi mathew Pineda Troy MD T Unavailable [phone] STEVE, SOMASHEKAR G Attending Unavailabl e [facility], OTHER Primary Care Un available SELF, SELF Referring Unavailable STEVE SOMASHEKAR G Attending Unavailabl e STEVE, SOMASHEKAR G Referring Unavailabl e [facility], OTHER Primary Care Un available STEVE, SOMASHEKAR G Referring Unavailabl e [facility], OTHER Primary Care Un available STEVE, SOMASHEKAR G Attending Unavailabl e Unavailable Primary Care Provider Unavailabl e [facility], [facility] Primary Care Provider Darrel Ferrer [...] Attending Unavailable Geno Martin Admitting Unavailable SERVICES, [facility] Unava ilable STEPHANIE MAHMOOD Attending Unavailable SERVICES, [facility] Unava ilable TABITHA NEWELL Attending Unavailable SERVICES, [facility] Unava ilable AGUSTIN MICHAEL Attending Unavailab le SERVICES, [facility] Unava ilable VIVIAN TRINH Attending Unavailable SERVICES, [facility] Unava ilable EMILIE JARVIS Attending Unavailable SERVICES, [facility] Unava ilable TABITHA NEWELL Attending Unavailable SERVICES, [facility] Unava ilable JYOTHI TRINH Attending Unavailable SERVICES, [facility] Unava ilable TABITHA NEWELL Attending Unavailable SERVICES, [facility] Unava ilable TABITHA NEWELL Attending Unavailable SERVICES, [facility] Unava ilable STEPHANIE MAHMOOD Attending Unavailable SERVICES, [facility] Unava ilable YANNI PARRA Attending Unavailable SERVICES, [facility] Unava ilable TABITHA NEWELL Attending Unavailable SERVICES, [facility] Unava ilable SHELBY PALMER Attending Unavailable SHI, CYNTHIA J Primary Care Unavailable LINDSEY WILLARD Attending Unavailable SELF Referring Unavailable SHI, CYNTHIA J Primary Care Unavailable LINDSEY WILLARD Referring Unavailable JOSSE ROMO Attending Unavailable LINSDEY WILLARD Attending Unavailable SITTEK, STU Referring Unavailable ROHRBACH, CYNTHIA J Primary Care Unavailable ROHRBACH, CYNTHIA J Primary Care Unavailable VALERIE EUCEDAETHI Admitting Unavailable MARIANNA JOHN Attending Unavailable Allergies Allergy Classification Reported Allergen(s) Allergy Type Date of Onset Reaction(s) Facility DOPamine Antagonists (1 source) Metoclopramide Drug [facility] 07-20-19 17 [facility] Hal[facility] (1 source) [facility]ol Drug All[facility] 06-02-19 16 [facility] NSAIDs (1 source) Ibuprofen Drug Allergy 10-31-19 13 [facility] Opioid Agonists (2 sources) Morphine Drug Allergy 10-24-19 15 Hives [facility] Penicillins (antibiotic) (1 source) Penicillins Drug Allergy 10-31-19 13 Swelling [facility] Work Phone: (20 sources) haloperidol; Translations: [HALOPERIDOL] Propensity to adverse reactions to drug 06-02-19 16 [facility] (20 sources) ibuprofen; Translations: [IBUPROFEN] Propensity to adverse reactions to drug 08-22-19 12 Hives, Swelling, Anaphylaxis, Other (See Comments), Shortness Of Breath, Other: See Comments [facility] (6 sources) metoclopramide; Translations: [METOCLOPRAMIDE HCL] Propensity to adverse reactions to drug 07-01-[address] [facility] (6 sources) penicillin g; Translations: [PENICILLIN G] Propensity to adverse reactions to drug 07-25-[address] [facility] (20 sources) traMADol; Translations: [TRAMADOL] Propensity to adverse reactions to drug 07-25-19 15 Hives, Other: See Comments [facility] (20 sources) morphine; Translations: [MORPHINE] Drug Allergy 07-16-19 18 [facility] (17 sources) Enoxaparin; Translations: [ENOXAPARIN] Drug Allergy 08-23-19 20 Itching, Rash [place] (13 sources) Haloperidol; Translations: [HALOPERIDOL LACTATE] Drug Allergy 06-19-19 17 Swelling, Other: See Comments [place] (19 sources) Penicillins; Translations: [PENICILLINS] Propensity to adverse reactions to drug 08-22-19 12 Anaphylaxis, Swelling [place] (2 sources) Haloperidol; Translations: [Haldol] Drug Allergy 08-10-19 19 Unknown [facility] Repository (20 sources) fentaNYL; Translations: [Fentanyl] Drug Allergy 09-13-19 21 [facility] (15 sources) Ketorolac; Translations: [ketorolac] Drug Allergy 06-13-19 21 [facility] (10 sources) Ketorolac Drug Allergy 12-17-19 22 Hives, Itching [facility] (19 sources) Metoclopramide; Translations: [METOCLOPRAMIDE] Drug Allergy 07-01-19 17 Anxiety, Other: See Comments [facility] (1 source) Ibuprofen Drug Allergy 01-09-20 13 [facility] Repository (9 sources) Ketorolac; Translations: [Toradol] Drug Allergy [facility] Repository (1 source) Morphine Drug Allergy 08-10-19 19 [facility] Repository (1 source) Penicillins Drug allergy (disorder) 01-09-20 13 [facility] Repository (1 source) traMADol Drug Allergy 01-09-20 13 [facility] Repository (3 sources) Ketorolac trometamol Propensity to adverse reactions to drug 12-17-19 22 Hives, Itching [facility] (2 sources) Penicillins Propensity to adverse reactions to drug 10-31-19 13 Swelling [facility] Work Phone: (11 sources) Penicillins Propensity to adverse reactions to drug 10-10-19 18 Anaphylaxis [facility] (11 sources) Prochlorperazine; Translations: [PROCHLORPERAZINE] Drug Allergy 03-18-19 25 Hives, Other (See Comments), Anaphylaxis [facility] (8 sources) Penicillin; Translations: [penicillin] Drug Allergy [facility] Repository (7 sources) Prochlorperazine; Translations: [Compazine] Drug Allergy [facility] Repository (1 source) Haloperidol Drug Allergy 10-29-19 25 [facility] Repository (1 source) Ibuprofen Drug Allergy 10-29-19 25 [facility] Repository (1 source) Morphine Drug Allergy 10-29-19 25 [facility] Repository (1 source) Penicillins Drug allergy (disorder) 10-29-19 25 [facility] Repository (1 source) Prochlorperazine Drug Allergy 10-29-19 25 [facility] Repository (1 source) traMADol Drug Allergy 10-29-19 25 [facility] Repository (3 sources) Penicillins Drug Allergy 08-22-19 12 Other: See Comments [facility] Medications Current Medications Medication Drug Class(es) [...] 30 tablet 11 12/01/2019 05/11/2023 Discontinued amylase 392095 unt / lipase 80296 unt / protease 41173 unt delayed release oral capsule (20 sources) Start: 11-02-2024 lipase-proteas e-amylase (CREON) 24,000-76,000 -120,000 unit delayed release capsule Indications: Chronic pancreatitis, unspecified pancreatitis type (HCC) , Epigastric pain , Loose stools , Exocrine pancreatic insufficiency (HCC) Take 2 caps by mouth 3 times daily with meals and 1 cap with each snack. Take 1st cap before meal starts and the 2nd cap longterm through. Max of 10 capsules per day. 300 capsule 3 11/02/2024 Active Start: 12-23-2023 take 3 capsules by m outh twice daily at mealtime Pancreatic enzymes (Creon) 59679-[address]-614014 units Cap DR Particles capsule Take 3 capsules by mouth 2 times daily with meals. 180 capsule 11 12/23/2023 Active Start: 05-11-2023 take 3 capsules by m outh twice daily at mealtime Pancreatic enzymes (Creon) 48929-[address] Particles capsule Take 3 capsules by mouth 2 times daily with meals. 180 capsule 11 05/11/2023 Active Start: 12-16-2021 End: 05-11-2023 take 49853-94770 capsules by mouth three times daily Zzwnjn-Lfrkhtfa-Xddztqk (Creon) 24,000-76,000 -120,000 unit capsule,delayed release(DR/EC) Discontinued [...] by mouth every week Ergocalciferol 1.25 MG (63007 UT) capsule Take 1 capsule by mouth once a week. 8 capsule 05/11/2023 Active Start: 01-28-2022 End: 03-19-2022 take 1 capsule by mouth every week ergocalciferol 1.25 MG (31575 UT) capsule Take 1 capsule by mouth [...] 40 mg/ml injection (1 source) Start: 11-06-2024 [place] (No Known Home Meds) (1 source) Start: 10-09-2021 [place] (No Known Home Meds) Active October 09, [...] tablet 1 09/29/2023 Active polyethylene glycol 3350 20213 mg powder for oral solution (2 sources) [...] mL/hr, Administer over 1 Hours, ONCE, On [facility] 04/07/24 at 1415, For 1 dose Start: 01-07-2024 End: 01-07-2024 1,000 mL (18.4 mL/kg), IntraVENous, at 983.6 mL/hr, Administer over 61 Minutes, ONCE, On [facility] 01/07/24 at 1445, For 1 dose, [...] fracture] Chronic Other aftercare (1 source) Other meterman (current) drug therapy; Translations: [OTH HALF-WAY CURRENT DRUG THERAPY] Onset: 3 Episodic Other [...] Test Name Value Interpretation Reference Range Facility [facility] 12-13-2024 CNOV Office Visit (GGENMN ) ----- CHIOMA RAINEY ([id number]) 1970 F Date Time Provider Department 12/13/24 10:00 AM LINDSEY WILLARD GGKATELINMN During your visit today, we recorded the following information about you: Pulse Blood pressure Weight Height 87/minute 144/80 54 kg 1.575 m Lindsey Willard ALEA.FLEXO PRESS OPERATOR 12/13/2024 1:10 PM Signed NAME: Chioma Rainey [...] use and chronic pancreatitis who presented to [facility] Main ED on 12/09 with progressively worsening epigastric pain and N/V x3 days. Was seen in emergency department 12/[address] scan with chronic findings but also a mucosal pancreatic wall thickening. She follows with [facility] GI outpatient and underwent a celiac [...] entire pancreas. - Celiac plexus block performed. [facility] 11/02/2024 IMPRESSION AND PLAN Chioma Cuellar (more content not included)... Normal [facility] CNDSon 12-11-2024 CNDS HNO ID: [id number] Author: ALEXUS YOUNGBLOOD PA-C Service: Hospital Medicine Author Type: Physician Supervisor Kennel Type: Discharge Summary Filed: 12/11/2024 09:45 Note Text: ----- Attestation signed by Marianna John MD at 12/11/2024 3:57 PM [facility] STAFF PHYSICIAN NOTE OF PERSONAL INVOLVEMENT IN CARE Patient seen and evaluated with the JOSE LUIS. I have reviewed the discharge summary obtained and documented by the physician assistant farm operations manager and I personally participated in the garcia [...] use and chronic pancreatitis who presented to [facility] Main ED on 12/09 with progressively worsening epigastric pain and N/V x3 days. Was seen in emergency department 12/[address] scan with chronic findings but also a mucosal pancreatic wall thickening. She follows with [facility] GI outpatient and underwent a celiac [...] John MD Primary Service: GIM 2 Physician Supervisor Kennel: Alexus Youngblood PA-C PATIENT CONDITION AT DISCHARGE: [...] SITE CAR (more content not included)... Normal [facility] CBC panel Auto (Bld)on 12-10 Erythrocyte distribution width (RBC) [Ratio] 12.2 % Normal 11.5-15.0 [facility] Comment on above: Order Comment: Speci men Type: BLOOD SPECIMENOrdering Facility: [facility] Address: [address] [place] [address] Performed By: #### 5 8410-2 ####[facility] LABIA [id number] [place] [address] [place] Hematocrit (Bld) [Volume fraction] 38.2 % Normal 36.0-46.0 [facility] Comment on above: Order Comment: Speci men Type: BLOOD SPECIMENOrdering Facility: [facility] Address: [address] [place] [address] Performed By: #### 5 8410-2 ####[facility] LABIA [id number] [place] [address] [place] Hemoglobin (Bld) [Mass/Vol] 13.0 g/dL Normal 11.5-15.5 [facility] Comment on above: Order Comment: Speci men Type: BLOOD SPECIMENOrdering Facility: [facility] Address: [address] [place] [address] Performed By: #### 5 8410-2 ####[facility] LABIA [id number] [place] [address] [place] MCH (RBC) [Entitic mass] 32.8 pg Normal 26.0-34.0 [facility] Comment on above: Order Comment: Speci men Type: BLOOD SPECIMENOrdering Facility: [facility] Address: [address] [place] [address] Performed By: #### 5 8410-2 ####[facility] LABIA [id number] [place] [address] [place] MCHC (RBC) [Mass/Vol] 34.0 g/dL Normal 30.5-36.0 [facility] Comment on above: Order Comment: Speci men Type: BLOOD SPECIMENOrdering Facility: [facility] Address: [address] [place] [address] Performed By: #### 5 8410-2 ####[facility] [id number] [place] [address] [place] MCV (RBC) [Entitic vol] 96.5 fL Normal 80.0-100.0 [facility] Comment on above: Order Comment: Speci men Type: BLOOD SPECIMENOrdering Facility: [facility] Address: [address] [place] [address] Performed By: #### 5 8410-2 ####[facility] [id number] [place] [address] [place] Nucleated RBC (Bld) [#/Vol] 10*3/uL Normal <0.01 [facility] Comment on above: Order Comment: Speci men Type: BLOOD SPECIMENOrdering Facility: [facility] Address: [address] [place] [address] Performed By: #### 5 8410-2 ####[facility] [id number] [place] [address] [place] Platelet mean volume (Bld) [Entitic vol] 9.4 fL Normal 9.0-12.7 [facility] Comment on above: Order Comment: Speci men Type: BLOOD SPECIMENOrdering Facility: [facility] Address: [address] [place] [address] Performed By: #### 5 8410-2 ####[facility] LABCLIA [id number] [place] [address] [place] Platelets (Bld) [#/Vol] 337 10*3/uL Normal 150-400 [facility] Comment on above: Order Comment: Speci men Type: BLOOD SPECIMENOrdering Facility: [facility] Address: [address] [place] [address] Performed By: #### 5 8410-2 ####[facility] LABCLIA [id number] [place] [address] [place] RBC (Bld) [#/Vol] 3.96 10*6/uL Normal 3.90-5.20 [facility] Comment on above: Order Comment: Speci men Type: BLOOD SPECIMENOrdering Facility: [facility] Address: [address] [place] [address] Performed By: #### 5 8410-2 ####[facility] LABIA [id number] [address] [address] [place] WBC (Bld) [#/Vol] 9.21 10*3/uL Normal 3.70-11.00 [facility] Comment on above: Order Comment: Speci men Type: BLOOD SPECIMENOrdering Facility: [facility] Address: [address] [place] [address] Performed By: #### 5 8410-2 ####[facility] LABCLIA [id number] [address] [address] [place] HISTORY PHYSICALon HISTORY PHYSICAL HNO ID: [id number] Author: STU REY PA-C Service: Hospital Medicine Author Type: Physician Supervisor Kennel Type: H&P Filed: 12/10/2024 08:04 Note Text: ----- Attestation signed by Marianna John MD at 12/11/2024 3:56 PM [facility] STAFF PHYSICIAN NOTE OF PERSONAL INVOLVEMENT IN CARE Patient seen and evaluated with the PA. I have reviewed the history and physical examination obtained and documented by the physician assistant farm operations manager and I personally participated in the garcia [...] SIGNATURE: Marianna John MD ----- [facility] MEDICINE HISTORY AND PHYSICAL EXAM SERVICE DATE: 12/10/2024 SERVICE TIME: 2:34 AM Primary Care Physician: Cynthia Galindo CNP NIGHT AND WEEKEND COVERAGE: Day: Please page GIM treatment team listed under [facility] Teams. Overnight (5:00PM --> 07:30AM): For patients on H80/H81/G80/G81/ED/EDTU/E 20 please page [phone] For patients on Any Other Floor including building, J83, J1-2 please page [phone] Subjective CHIEF COMPLAINT: Epigastric pain HPI: This is a 54-year-old female with remote history of alcohol use and chronic pancreatitis who presented to [facility] Main ED on 12/09 with progressively worsening epigastric pain and N/V x3 days. She is followed by gastroenterology here at [facility]. Was seen in emergency department 12/08 [...] IV Dilaudid. Follows with GI here at [facility]. Last saw Lindsey Willard 11/02/2024. Recommended [...] she is not eating. She was at [facility] yesterday for this current episode. CT at [...] 1 tablet by mouth daily at bedtime. hnlpqw-todquflr-zgobnsa (CREON) 24,000-76,000 -120,000 unit delayed release capsule No No Sig: Take 2 caps by mouth 3 times daily with meals and 1 cap with each snack. Take 1st cap before meal starts and the 2nd cap hill (more content not included)... Normal [facility] PT panel Coag (PPP)on 2024 INR Coag (PPP) [Relative time] 1.1 {INR} Normal 0.9-1.3 [facility] Comment on above: Order Comment: Speci men Type: BLOOD SPECIMENOrdering Facility: [facility] Address: [address] [place] [address] Result Comment: Danyelle min K Antagonist (VKA) Therapeutic Range: INR 2 to 3 (Target INR of 2.5) Note: For patients treated with VKA drugs, such as warfarin, the [employer] 2012 Guideline recommends [...] Chest 2012, 141:7S-47S Amrita ROGER et al. [facility] 2017, 70: 252-289 Performed By: #### 3 4528-0 ####[facility] LABCLIA [id number] [place] [id number] [place] PT Coag (PPP) [Time] 11.5 s Normal 9.7-13.0 [facility] Comment on above: Order Comment: Speci men Type: BLOOD SPECIMENOrdering Facility: [facility] Address: [address] [place] [address] Performed By: #### 3 4528-0 ####[facility] LABIA [id number] [place] [id number] [place] Renal function 2000 panelon 12-10-2024 Albumin [Mass/Vol] 3.9 g/dL Normal 3.9-4.9 [facility] Comment on above: Order Comment: Speci men Type: BLOOD SPECIMENOrdering Facility: [facility] Address: [address] [place] [address] Performed By: #### 2 4362-6 ####[facility] LABIA [id number] [place] [address] [place] Anion gap [Moles/Vol] 12 mmol/L Normal 8-15 [facility] Comment on above: Order Comment: Speci men Type: BLOOD SPECIMENOrdering Facility: [facility] Address: [address] [place] [address] Performed By: #### 2 4362-6 ####[facility] LABIA [id number] [place] [id number] [place] Calcium [Mass/Vol] 10.2 mg/dL Normal 8.5-10.2 [facility] Comment on above: Order Comment: Speci men Type: BLOOD SPECIMENOrdering Facility: [facility] Address: [address] [place] [address] Performed By: #### 2 4362-6 ####[facility] LABIA [id number] [place] [id number] [place] Chloride [Moles/Vol] 105 mmol/L Normal 98-107 [facility] Comment on above: Order Comment: Speci men Type: BLOOD SPECIMENOrdering Facility: [facility] Address: [address] [place] [address] Performed By: #### 2 4362-6 ####[facility] LABCLIA [id number] [place] [id number] [place] CO2 [Moles/Vol] 23 mmol/L Normal 22-30 [facility] Comment on above: Order Comment: Speci men Type: BLOOD SPECIMENOrdering Facility: [facility] Address: [address] [place] [address] Performed By: #### 2 4362-6 ####[facility] LABIA [id number] [address] STATES OF [facility] Creatinine [Mass/Vol] 0.78 mg/dL Normal 0.58-0.96 [facility] Comment on above: Order Comment: Speci men Type: BLOOD SPECIMENOrdering Facility: [facility] Address: [address] [place] [address] Performed By: #### 2 4362-6 ####[facility] LABIA [id number] [place] [address] [place] eGFRcr SerPlBld CKD-EPI 2020 90 mL/min/1.73m??? Normal >=60 [facility] Comment on above: Order Comment: Speci men Type: BLOOD SPECIMENOrdering Facility: [facility] Address: [address] [place] [address] Result Comment: Patti mated Glomerular Filtration Rate [...] actual GFR. Performed By: #### 2 4362-6 ####[facility] LABIA [id number] [place] [id number] [place] Glucose [Mass/Vol] 97 mg/dL Normal 74-99 [facility] Comment on above: Order Comment: Speci men Type: BLOOD SPECIMENOrdering Facility: [facility] Address: [address] [place] [address] Result Comment: The [employer] (ADA) provides guidance for cutoff [...] Standards of Medical Care in Diabetes 2016, [place]. Diabetes Care. 2016.39(Suppl 1). Performed By: #### 2 4362-6 ####[facility] LABIA [id number] [place] [id number] [place] Phosphate [Mass/Vol] 2.7 mg/dL Normal 2.7-4.8 [facility] Comment on above: Order Comment: Speci men Type: BLOOD SPECIMENOrdering Facility: [facility] Address: [address] [place] [address] Performed By: #### 2 4362-6 ####[facility] LABIA [id number] [place] [id number] [place] Potassium [Moles/Vol] 3.8 mmol/L Normal 3.7-5.1 [facility] Comment on above: Order Comment: Speci men Type: BLOOD SPECIMENOrdering Facility: [facility] Address: [address] [place] [address] Performed By: #### 2 4362-6 ####[facility] LABIA [id number] [place] [id number] [place] Sodium [Moles/Vol] 140 mmol/L Normal 136-144 [facility] Comment on above: Order Comment: Speci men Type: BLOOD SPECIMENOrdering Facility: [facility] Address: [address] [place] [address] Performed By: #### 2 4362-6 ####[facility] LABCLIA [id number] [place] [address] [place] Urea nitrogen [Mass/Vol] 14 mg/dL Normal 7-21 [facility] Comment on above: Order Comment: Speci men Type: BLOOD SPECIMENOrdering Facility: [facility] Address: [address] [place] [address] Performed By: #### 2 4362-6 ####[facility] LABCLIA [id number] [address], [place] [address] [place] Urinalysis complete panel (U )on 12-10-2024 Bacteria LM.HPF (Urine sed) [#/Area] Negative Normal Negative [facility] Comment on above: Order Comment: Speci men Type: URINE SPECIMENOrdering Facility: [facility] Address: [address] [place] [address] Performed By: #### 2 4356-8 ####[facility] LABCLIA [id number] [address], [place] [address] [place] Bilirubin Ql (U) Negative Normal Negative [facility] Comment on above: Order Comment: Speci men Type: URINE SPECIMENOrdering Facility: [facility] Address: [address] [place] [address] Performed By: #### 2 4356-8 ####[facility] LABCLIA [id number] [place] [id number] [place] Clarity (Unsp spec) Cloudy Abnormal Clear [facility] Comment on above: Order Comment: Speci men Type: URINE SPECIMENOrdering Facility: [facility] Address: [address] [place] [address] Performed By: #### 2 4356-8 ####[facility] LABCLIA [id number] [address], [place] [address] [place] Color (U) Dark Yellow Abnormal Yellow [facility] Comment on above: Order Comment: Speci men Type: URINE SPECIMENOrdering Facility: [facility] Address: [address] [place] [address] Performed By: #### 2 4356-8 ####[facility] LABCLIA [id number] [address], [place] [address] [place] Epithelial cells LM.HPF (Urine sed) [#/Area] Moderate Normal [facility] Comment on above: Order Comment: Speci men Type: URINE SPECIMENOrdering Facility: [facility] Address: [address] [place] [address] Performed By: #### 2 4356-8 ####[facility] LABCLIA [id number] [place] [address] [place] Glucose Test strip (U) [Mass/Vol] Negative Normal Negative [facility] Comment on above: Order Comment: Speci men Type: URINE SPECIMENOrdering Facility: [facility] Address: [address] [place] [address] Performed By: #### 2 4356-8 ####[facility] LABCLIA [id number] [place] [id number] [place] Hemoglobin Ql (U) Negative Normal Negative [facility] Comment on above: Order Comment: Speci men Type: URINE SPECIMENOrdering Facility: [facility] Address: [address] [place] [address] Performed By: #### 2 4356-8 ####[facility] LABCLIA [id number] [address], [facility]95 [place] Hyaline casts (Urine sed) [#/Area] /[LPF] Abnormal 0 /LPF [facility] Comment on above: Order Comment: Speci men Type: URINE SPECIMENOrdering Facility: [facility] Address: [address] [place] [address] Performed By: #### 2 4356-8 ####[facility] LABCLIA [id number] [address] [place] [address] [place] Ketones Ql (U) Trace Abnormal Negative [facility] Comment on above: Order Comment: Speci men Type: URINE SPECIMENOrdering Facility: [facility] Address: [address] [place] [address] Performed By: #### 2 4356-8 ####[facility] LABCLIA [id number] [place] [address] [place] Leukocyte esterase Test strip Ql (U) Negative Normal Negative [facility] Comment on above: Order Comment: Speci men Type: URINE SPECIMENOrdering Facility: [facility] Address: [address] [place] [address] Performed By: #### 2 4356-8 ####[facility] LABCLIA [id number] [address], [place] [address] [place] Nitrite Ql (U) Negative Normal Negative [facility] Comment on above: Order Comment: Speci men Type: URINE SPECIMENOrdering Facility: [facility] Address: [address] [place] [address] Performed By: #### 2 4356-8 ####[facility] LABCLIA [id number] [place] [id number] [place] pH (U) 5.5 [pH] Normal 5.0-8.0 [facility] Comment on above: Order Comment: Speci men Type: URINE SPECIMENOrdering Facility: [facility] Address: [address] [place] [address] Performed By: #### 2 4356-8 ####[facility] LABCLIA [id number] [address], [facility]95 [place] Protein (U) [Mass/Vol] 1+ Abnormal Negative Cl [facility] Comment on above: Order Comment: Speci men Type: URINE SPECIMENOrdering Facility: [facility] Address: [address] [place] [address] Performed By: #### 2 4356-8 ####[facility] LABIA [id number] [place] [address] [place] RBC LM.HPF (Urine sed) [#/Area] 3-5 /HPF Abnormal 0-2 /HPF [facility] Comment on above: Order Comment: Speci men Type: URINE SPECIMENOrdering Facility: [facility] Address: [address] [place] [address] Performed By: #### 2 4356-8 ####[facility] [id number] [place] [address] [place] Specific gravity (U) [Rel density] 1.040 High 1.005-1.03 0 [facility] Comment on above: Order Comment: Speci men Type: URINE SPECIMENOrdering Facility: [facility] Address: [address] [place] [address] Performed By: #### 2 4356-8 ####[facility] [id number] [place] [address] [place] Urobilinogen Ql (U) 1.0 EU/dL Normal 0.2-1.0 EU/dL [facility] Comment on above: Order Comment: Speci men Type: URINE SPECIMENOrdering Facility: [facility] Address: [address] [place] [address] Performed By: #### 2 4356-8 ####[facility] LABIA [id number] [place] [address] [place] WBC LM.HPF (Urine sed) [#/Area] 0-5 /HPF Normal 0-5 /HPF [facility] Comment on above: Order Comment: Speci men Type: URINE SPECIMENOrdering Facility: [facility] Address: [address] [place] [address] Performed By: #### 2 4356-8 ####[facility] LABIA [id number] [place] [address] [place] Yeast.budding LM.HPF (Urine sed) [#/Area] Present Abnormal None Seen [facility] Comment on above: Order Comment: Speci men Type: URINE SPECIMENOrdering Facility: [facility] Address: [address] [place] [address] Performed By: #### 2 4356-8 ####[facility] LABIA [id number] [place] [address] [place] Amylase SerPl-cCncon 025 Amylase [Catalytic activity/Vol] 94 U/L Normal 30-104 [facility] Comment on above: Order Comment: Speci men Type: BLOOD SPECIMENOrdering Facility: [facility] Address: [address] [place] [address] Performed By: #### 1 798-8, LIPNF, 3040-3, 25205-4 ####[facility] [id number] [place] [address] [place] CBC W Auto Differential pane l (Bld)on 12-09-2024 Basophils (Bld) [#/Vol] 0.09 10*3/uL Normal <0.11 [facility] Comment on above: Order Comment: Speci men Type: BLOOD SPECIMENOrdering Facility: [facility] Address: [address] [place] [address] Performed By: #### 5 7021-8 ####[facility] [id number] [place] [address] [place] Basophils/100 WBC (Bld) 0.7 % Normal [facility] Comment on above: Order Comment: Speci men Type: BLOOD SPECIMENOrdering Facility: [facility] Address: [address] [place] [address] Performed By: #### 5 7021-8 ####[facility] LABCLIA [id number] [facility] [address], [place] [address] [place] Differential cell count method Nom (Bld) Auto Normal [facility] Comment on above: Order Comment: Speci men Type: BLOOD SPECIMENOrdering Facility: [facility] Address: [address] [place] [address] Performed By: #### 5 7021-8 ####[facility] LABCLIA [id number] [place] [address] [place] Eosinophils (Bld) [#/Vol] 0.05 10*3/uL Normal <0.46 [facility] Comment on above: Order Comment: Speci men Type: BLOOD SPECIMENOrdering Facility: [facility] Address: [address] [place] [address] Performed By: #### 5 7021-8 ####[facility] LABCLIA [id number] [place] [address] [place] Eosinophils/100 WBC (Bld) 0.4 % Normal [facility] Comment on above: Order Comment: Speci men Type: BLOOD SPECIMENOrdering Facility: [facility] Address: [address] [place] [address] Performed By: #### 5 7021-8 ####[facility] LABIA [id number] [place] [address] [place] Erythrocyte distribution width (RBC) [Ratio] 12.5 % Normal 11.5-15.0 [facility] Comment on above: Order Comment: Speci men Type: BLOOD SPECIMENOrdering Facility: [facility] Address: [address] [place] [address] Performed By: #### 5 7021-8 ####[facility] LABCLIA [id number] [place] [address] [place] Hematocrit (Bld) [Volume fraction] 43.8 % Normal 36.0-46.0 [facility] Comment on above: Order Comment: Speci men Type: BLOOD SPECIMENOrdering Facility: [facility] Address: [address] [place] [address] Performed By: #### 5 7021-8 ####[facility] LABCLIA [id number] [place] [address] [place] Hemoglobin (Bld) [Mass/Vol] 15.2 g/dL Normal 11.5-15.5 [facility] Comment on above: Order Comment: Speci men Type: BLOOD SPECIMENOrdering Facility: [facility] Address: [address] [place] [address] Performed By: #### 5 7021-8 ####[facility] LABCLIA [id number] [place] [address] [place] Immature granulocytes (Bld) [#/Vol] 0.03 10*3/uL Normal <0.10 [facility] Comment on above: Order Comment: Speci men Type: BLOOD SPECIMENOrdering Facility: [facility] Address: [address] [place] [address] Performed By: #### 5 7021-8 ####[facility] LABCLIA [id number] [place] [address] [place] Immature granulocytes/100 WBC (Bld) 0.2 % Normal [facility] Comment on above: Order Comment: Speci men Type: BLOOD SPECIMENOrdering Facility: [facility] Address: [address] [place] [address] Performed By: #### 5 7021-8 ####[facility] LABCLIA [id number] [place] [address] [place] Lymphocytes (Bld) [#/Vol] 2.53 10*3/uL Normal 1.00-4.00 [facility] Comment on above: Order Comment: Speci men Type: BLOOD SPECIMENOrdering Facility: [facility] Address: [address] [place], [place] [address] Performed By: #### 5 7021-8 ####[facility] LABIA [id number] [place] [address] [place] Lymphocytes/100 WBC (Bld) 20.3 % Normal [facility] Comment on above: Order Comment: Speci men Type: BLOOD SPECIMENOrdering Facility: [facility] Address: [address] [place] [address] Performed By: #### 5 7021-8 ####[facility] LABIA [id number] [place] [address] [place] MCH (RBC) [Entitic mass] 33.4 pg Normal 26.0-34.0 [facility] Comment on above: Order Comment: Speci men Type: BLOOD SPECIMENOrdering Facility: [facility] Address: [address] [place] [address] Performed By: #### 5 7021-8 ####[facility] LABIA [id number] [place] [address] [place] MCHC (RBC) [Mass/Vol] 34.7 g/dL Normal 30.5-36.0 [facility] Comment on above: Order Comment: Speci men Type: BLOOD SPECIMENOrdering Facility: [facility] Address: [address] [place] [address] Performed By: #### 5 7021-8 ####[facility] LABIA [id number] [place] [address] [place] MCV (RBC) [Entitic vol] 96.3 fL Normal 80.0-100.0 [facility] Comment on above: Order Comment: Speci men Type: BLOOD SPECIMENOrdering Facility: [facility] Address: [address] [place] [address] Performed By: #### 5 7021-8 ####[facility] LABIA [id number] [id number] [address] [place] Monocytes (Bld) [#/Vol] 1.18 10*3/uL High <0.87 [facility] Comment on above: Order Comment: Speci men Type: BLOOD SPECIMENOrdering Facility: [facility] Address: [address] [place] [address] Performed By: #### 5 7021-8 ####[facility] LABCLIA [id number] [facility] [id number], [facility]95 [place] Monocytes/100 WBC (Bld) 9.4 % Normal [facility] Comment on above: Order Comment: Speci men Type: BLOOD SPECIMENOrdering Facility: [facility] Address: [address] [place] [address] Performed By: #### 5 7021-8 ####[facility] LABCLIA [id number] [facility] [place] [address] [place] Neutrophils (Bld) [#/Vol] 8.61 10*3/uL High 1.45-7.50 [facility] Comment on above: Order Comment: Speci men Type: BLOOD SPECIMENOrdering Facility: [facility] Address: [address] [place] [address] Performed By: #### 5 7021-8 ####[facility] LABCLIA [id number] [place] [id number] [place] Neutrophils/100 WBC (Bld) 69.0 % Normal [facility] Comment on above: Order Comment: Speci men Type: BLOOD SPECIMENOrdering Facility: [facility] Address: [address] [place] [address] Performed By: #### 5 7021-8 ####[facility] LABCLIA [id number] [place] [id number] [place] Nucleated RBC (Bld) [#/Vol] 10*3/uL Normal <0.01 [facility] Comment on above: Order Comment: Speci men Type: BLOOD SPECIMENOrdering Facility: [facility] Address: [address] [place] [address] Performed By: #### 5 7021-8 ####[facility] LABCLIA [id number] [place] [address] [place] Nucleated RBC/100 WBC (Bld) [Ratio] 0.0 /100 WBC Normal [facility] Comment on above: Order Comment: Speci men Type: BLOOD SPECIMENOrdering Facility: [facility] Address: [address] [place] [address] Performed By: #### 5 7021-8 ####[facility] LABIA [id number] [place] [address] [place] Platelet mean volume (Bld) [Entitic vol] 9.4 fL Normal 9.0-12.7 [facility] Comment on above: Order Comment: Speci men Type: BLOOD SPECIMENOrdering Facility: [facility] Address: [address] [place] [address] Performed By: #### 5 7021-8 ####[facility] LABIA [id number] [place] [address] [place] Platelets (Bld) [#/Vol] 443 10*3/uL High 150-400 [facility] Comment on above: Order Comment: Speci men Type: BLOOD SPECIMENOrdering Facility: [facility] Address: [address] [place] [address] Performed By: #### 5 7021-8 ####[facility] LABCLIA [id number] [place] [address] [place] RBC (Bld) [#/Vol] 4.55 10*6/uL Normal 3.90-5.20 [facility] Comment on above: Order Comment: Speci men Type: BLOOD SPECIMENOrdering Facility: [facility] Address: [address] [place] [address] Performed By: #### 5 7021-8 ####[facility] LABCLIA [id number] [place] [id number] [place] WBC (Bld) [#/Vol] 12.49 10*3/uL High 3.70-11.00 [facility] Comment on above: Order Comment: Speci men Type: BLOOD SPECIMENOrdering Facility: [facility] Address: [address] [place] [address] Performed By: #### 5 7021-8 ####[facility] LABIA [id number] [place] [address] [place] Comprehensive metabolic 2000 panelon 12-09-2024 Albumin [Mass/Vol] 4.8 g/dL Normal 3.9-4.9 [facility] Comment on above: Order Comment: Speci men Type: BLOOD SPECIMENOrdering Facility: [facility] Address: [address] [place] [address] Performed By: #### 1 798-8, LIPNF, 3040-3, 65965-8 ####[facility] LABIA [id number] [place] [address] [place] ALP [Catalytic activity/Vol] 169 U/L High 34-123 [facility] Comment on above: Order Comment: Speci men Type: BLOOD SPECIMENOrdering Facility: [facility] Address: [address] [place] [address] Performed By: #### 1 798-8, LIPNF, 3040-3, 78037-9 ####[facility] LABCLIA [id number] [place] [address] [place] ALT [Catalytic activity/Vol] 20 U/L Normal 7-38 [facility] Comment on above: Order Comment: Speci men Type: BLOOD SPECIMENOrdering Facility: [facility] Address: [address] [place] [address] Performed By: #### 1 798-8, LIPNF, 3040-3, 00364-5 ####[facility] LABCLIA [id number] [place] [address] [place] Anion gap [Moles/Vol] 16 mmol/L High 8-15 [facility] Comment on above: Order Comment: Speci men Type: BLOOD SPECIMENOrdering Facility: [facility] Address: [address] [place] [address] Performed By: #### 1 798-8, LIPNF, 3040-3, 96822-4 ####[facility] LABCLIA [id number] [place] [address] [place] AST [Catalytic activity/Vol] 22 U/L Normal 13-35 [facility] Comment on above: Order Comment: Speci men Type: BLOOD SPECIMENOrdering Facility: [facility] Address: [address] [place] [address] Performed By: #### 1 798-8, LIPNF, 3040-3, 37273-8 ####[facility] LABCLIA [id number] [place] [address] [place] Bilirubin [Mass/Vol] 0.2 mg/dL Normal 0.2-1.3 [facility] Comment on above: Order Comment: Speci men Type: BLOOD SPECIMENOrdering Facility: [facility] Address: [address] [place] [address] Performed By: #### 1 798-8, LIPNF, 3040-3, 35927-2 ####[facility] LABCLIA [id number] [place] [address] [place] Calcium [Mass/Vol] 11.3 mg/dL High 8.5-10.2 [facility] Comment on above: Order Comment: Speci men Type: BLOOD SPECIMENOrdering Facility: [facility] Address: [address] [place] [address] Performed By: #### 1 798-8, LIPNF, 3040-3, 89772-7 ####[facility] LABCLIA [id number] [place] [id number] [place] Chloride [Moles/Vol] 102 mmol/L Normal 98-107 [facility] Comment on above: Order Comment: Speci men Type: BLOOD SPECIMENOrdering Facility: [facility] Address: [address] [place] [address] Performed By: #### 1 798-8, LIPNF, 3040-3, 03406-5 ####[facility] LABCLIA [id number] [place] [address] [place] CO2 [Moles/Vol] 23 mmol/L Normal 22-30 [facility] Comment on above: Order Comment: Speci men Type: BLOOD SPECIMENOrdering Facility: [facility] Address: [address] [place] [address] Performed By: #### 1 798-8, LIPNF, 3040-3, 96866-2 ####[facility] LABCLIA [id number] [place] [address] [place] Creatinine [Mass/Vol] 1.00 mg/dL High 0.58-0.96 [facility] Comment on above: Order Comment: Speci men Type: BLOOD SPECIMENOrdering Facility: [facility] Address: [address] [place] [address] Performed By: #### 1 798-8, LIPNF, 3040-3, 04783-9 ####[facility] LABCLIA [id number] [place] [address] [place] eGFRcr SerPlBld CKD-EPI 2020 67 mL/min/1.73m??? Normal >=60 [facility] Comment on above: Order Comment: Speci men Type: BLOOD SPECIMENOrdering Facility: [facility] Address: [address] [place] [address] Result Comment: Patti mated Glomerular Filtration Rate [...] accurately reflect actual GFR. Performed By: #### 1 798-8, NIC, 3039-05, ####[facility] LABCLIA [id number] [address] [address] [place] Glucose [Mass/Vol] 112 mg/dL High 74-99 [facility] Comment on above: Order Comment: Leticia her Type: BLOOD SPECIMENOrdering Facility: [facility] Address: [address] [place] [address] Result Comment: The [place] Diabetes Association (ADA) provides guidance for cutoff [...] Standards of Medical Care in Diabetes 2016, [employer]. Diabetes Care. 2016.39(Suppl 1). Performed By: #### 1 798-8, NIC, 3039-05, ####[facility] LABCLIA [id number] [address] [address] [place] Potassium [Moles/Vol] 4.4 mmol/L Normal 3.7-5.1 [facility] Comment on above: Order Comment: Leticia her Type: BLOOD SPECIMENOrdering Facility: [facility] Address: [address] [place] [address] Performed By: #### 1 798-8, NIC, 3039-05, ####[facility] LABCLIA [id number] [address] [address] [place] Protein [Mass/Vol] 8.3 g/dL High 6.3-8.0 [facility] Comment on above: Order Comment: Speci men Type: BLOOD SPECIMENOrdering Facility: [facility] Address: [address] [place] [address] Performed By: #### 1 798-8, LIPNF, 3040-3, 69791-0 ####[facility] LABCLIA [id number] [place] [address] [place] Sodium [Moles/Vol] 141 mmol/L Normal 136-144 [facility] Comment on above: Order Comment: Speci men Type: BLOOD SPECIMENOrdering Facility: [facility] Address: [address] [place] [address] Performed By: #### 1 798-8, LIPNF, 3040-3, 91074-6 ####[facility] LABCLIA [id number] [place] [address] [place] Urea nitrogen [Mass/Vol] 14 mg/dL Normal 7-21 [facility] Comment on above: Order Comment: Speci men Type: BLOOD SPECIMENOrdering Facility: [facility] Address: [address] [place] [address] Performed By: #### 1 798-8, LIPNF, 3040-3, 20583-2 ####[facility] LABCLIA [id number] [place] [id number] [place] ECG COMPLETEon 12-09-2024 ECG COMPLETE Ventricular Rate : 8 8 BPM Atrial Rate : 88 BPM P-R Interval : 122 ms QRS Duration : 74 ms Q-T Interval : 348 ms QTC Calculation(Bazett) : 421 ms Calculated P Kiron : 63 degrees Calculated R Kiron : 65 degrees Calculated T Kiron : 59 degrees NORMAL SINUS RHYTHM NORMAL ECG Confirmed by Edmund ALVARADO JOHN ([id number]), business editor CHUCHO KELLOGG ([id number]) on 12/17/2024 1:33:42 PM NAME : CHIOMA RAINEY PID : [id number] : 1970 Gender : Female Race : ORD : [id number] Procedure Date : Dec 09 2024 18:52:19 Edit Date : Dec 17 2024 13:33:45 Diagnosis: NORMAL SINUS RHYTHM NORMAL ECG Confirmed by Edmund ALVARADO JOHN ([id number]), business editor CHUCHO KELLOGG ([id number]) on 12/17/2024 1:33:42 PM Test Reason : Chest Pain Location : 2 : EDNS [id number] Overread By : Edmund ALVARADO JOHN Edited By : CHUCHO KELLOGG Referred By : , Acquired by : Karen vieira [facility] ED NOTEon 12-09-2024 ED NOTE HNO ID: [id number] Author: MAGNO JIMENEZ RN Service: ? Author Type: Registered Nurse Type: ED Notes Filed: 12/09/2024 19:13 Note Text: Received bedside report from Jefry RN, assumed care at this time [facility] ED NOTE HNO ID: [id number] Author: JEFRY THOMPSON RN Service: Emergency Medicine Author Type: Registered Nurse Type: ED Notes Filed: 12/09/2024 18:21 Note Text: Pt requesting something for nausea, MD notified. Pt unable to provide urine sample at this time, pt aware of need [facility] ED PROGRESS NOTE (PROVIDER)o n 12-09-2024 ED PROGRESS NOTE (PROVIDER) HNO ID: [id number] Author: DIOMEDES PAZ MD Service: Emergency Medicine [...] 2024 TIME: 9:36 PM PAGER/CONTACT #: Karen [facility] ED PROV NOTEon 12-09-2024 ED PROV NOTE HNO ID: [id number] Author: DIOMEDES PAZ MD Service: Emergency Medicine [...] She is followed by gastroenterology here at [facility]. Was seen in emergency department yesterday [...] epigastric pain. Follows with GI here at [facility]. Last saw Lindsey Willard 11/02/2024. Recommended restart creon and elavil. Also ordered endoscopic US guided celiac plexus block. Underwent block 11/17 with no relief. Recent admission at [facility] for flare up of her pancreatitis. [...] she is not eating. She was at [facility] yesterday for this current episode. CT at [...] Negative. Psychiatr (more content not included)... Normal [facility] ED Triage Noteon 12-09-2024 ED Triage Note HNO ID: [id number] Author: MILLER GALLAGHER MD Service: Emergency Medicine [...] urinary or vaginal symptoms. Recently admitted at [facility] for the same, dc 2 weeks [...] (1) Reflex SIGNATURE: Miller Gallagher MD Normal [facility] LIPID PANEL, NONFASTINGon Cholesterol [Mass/Vol] 272 mg/dL High <200 Cl [facility] Comment on above: Order Comment: Speci men Type: BLOOD SPECIMENOrdering Facility: [facility] Address: [address] [place] [address] Result Comment: <200 mg/dL, Desirable 200-239 mg/dL, Borderline high >239 mg/dL, High Performed By: #### 1 798-8, LIPNF, 3040-3, 43163-5 ####[facility] LABCLIA [id number] [place] [address] [place] HDL CHOLESTEROL, NF 42 mg/dL Normal >39 [facility] Comment on above: Order Comment: Leticia her Type: BLOOD SPECIMENOrdering Facility: [facility] Address: [address] [place] [address] Result Comment: 40-5 9 mg/dL, Acceptable >59 mg/dL, High: Negative risk factor for coronary heart disease <40 mg/dL, Low: Positive risk factor for coronary heart disease Performed By: #### 1 798-8, LIPELIZABETH, 3039-3, ####[facility] LABIA [id number] [address] OF [facility] LDL CHOLESTEROL CALCULATED, NF 193 mg/dL High <100 [facility] Comment on above: Order Comment: Jessicasherrill her Type: BLOOD SPECIMENOrdering Facility: [facility] Address: [address] [place] [address] Result Comment: <100 mg/dL, Optimal 100-129 mg/dL, Near optimal/above optimal 130-159 mg/dL, Borderline high 160-189 mg/dL, High >189 mg/dL, Very high Secondary prevention optimal LDL Cholesterol levels are recommended to be <70 mg/dL LDL cholesterol is calculated using the Lyon-NIH equation. Performed By: #### 1 798-8, LIPELIZABETH, 3039-3, ####[facility] LABIA [id number] [address] OF [place] LDL/HDL RATIO, NF 4.60 mg/dL High <2.54 [facility] Comment on above: Order Comment: Leticia her Type: BLOOD SPECIMENOrdering Facility: [facility] Address: [address] [place] [address] Result Comment: Vangie thomas: 1. National Cholesterol Education Program ATP III Guideline At-A-Glance Quick Desk Reference: National Heart, Lung, and Blood [place]. National Institutes of Health. 2001: NIH Publication No. 01-3305. 2. An International Atherosclerosis Society position paper: global recommendations for the management of dyslipidemia: executive summary, Atherosclerosis. 2014: 232(2):410-413. Performed By: #### 1 798-8, LIPNF, 3040-3, 23083-2 ####[facility] LABCLIA [id number] [place] [id number] [place] NON HDL CHOL, NF 230 mg/dL High <130 [facility] Comment on above: Order Comment: Speci men Type: BLOOD SPECIMENOrdering Facility: [facility] Address: [address] [place] [address] Result Comment: <130 mg/dL, Optimal 130-159 mg/dL, Near optimal/above optimal 160-189 mg/dL, Borderline high 190-219 mg/dL, High >219 mg/dL, Very high Secondary prevention optimal non HDL Cholesterol levels are recommended to be <100 mg/dL Performed By: #### 1 798-8, LIPNF, 0-3, 11929-9 ####[facility] LABCLIA [id number] [place] [address] [place] T CHOL/HDL RATIO NF 6.48 mg/dL High <5.10 [facility] Comment on above: Order Comment: Speci men Type: BLOOD SPECIMENOrdering Facility: [facility] Address: [address] [place] [address] Performed By: #### 1 798-8, LIPNF, 3039-3, 76190-4 ####[facility] LABCLIA [id number] [place] [address] [place] TRIGLYCERIDES, NF 193 mg/dL High <150 [facility] Comment on above: Order Comment: Speci men Type: BLOOD SPECIMENOrdering Facility: [facility] Address: [address] [place] [address] Result Comment: <150 mg/dL, Normal 150-199 mg/dL, Borderline high 200-499 mg/dL, High >499 mg/dL, Very high Performed By: #### 1 798-8, LIPNF, 3040-3, 27199-8 ####[facility] LABCLIA [id number] [place] [address] [place] VLDL CHOLESTEROL, NF 40 mg/dL High <30 [facility] Comment on above: Order Comment: Speci men Type: BLOOD SPECIMENOrdering Facility: [facility] Address: [address] [place] [address] Performed By: #### 1 798-8, LIPNF, 3040-3, 26591-2 ####[facility] LABCLIA [id number] [place] [address] [place] Lipase SerPl-cCncon 12-10-19 25 Lipase [Catalytic activity/Vol] 39 U/L Normal 16-61 [facility] Comment on above: Order Comment: Speci men Type: BLOOD SPECIMENOrdering Facility: [facility] Address: [address] [place] [address] Performed By: #### 1 798-8, LIPNF, 3040-3, 58395-8 ####[facility] LABCLIA [id number] [place] [address] [place] PHOSPHATIDYLETHANOL (PETH)on 12-09-2024 EER PETH See Note Normal [facility] Comment on above: Order Comment: Speci men Type: BLOOD SPECIMENOrdering Facility: [facility] Address: [address] [place] [address] Result Comment: Auth orized individuals can access the [facility] Enhanced Report with an [employer] Connect account using the following link. Your local lab can assist you in obtaining the patient report if you don't have a Connect account. [email or web address] Performed By: #### P ETH ####[facility] [id number] [place] [address] PETH 16:0/18.2 (PLPETH) <10 Normal [facility] Comment on above: Order Comment: Speci men Type: BLOOD SPECIMENOrdering Facility: [facility] Address: [address] [place] [address] Result Comment: Refe rence ranges are not well established. Performed By: #### P ETH ####[facility]IESCLIA [id number] [place] [address] PETH 16:0/18:1 (POPETH) <10 Normal [facility] Comment on above: Order Comment: Speci men Type: BLOOD SPECIMENOrdering Facility: [facility] Address: [address] [place] [address] Result Comment: PEth 16:0/18:1 (POPEth) Less than 10 ng/mL............Not detected Less than 20 ng/mL............Abstinence or light alcohol consumption 20 - 200 ng/mL................Moderate alcohol consumption Greater than 200 ng/mL........Heavy alcohol consumption or chronic alcohol use (Reference: Brie Singh and Kimberly Kellogg 2018 J. Forensic Sci) Performed By: #### P ETH ####[facility] [id number] [place] [address] PETH INTERPRETATION See Comment Normal [facility] Comment on above: Order Comment: Speci men Type: BLOOD SPECIMENOrdering Facility: [facility] Address: [address] [place] [address] Result Comment: Phos phatidylethanol (PEth) is a [...] developed and its performance characteristics determined by [facility]. It has not been cleared or approved by the U.S. Food and Drug Administration. This test was performed in a CLIA-certified laboratory and is intended for clinical purposes. Performed By: [facility] [address] [place] [address] Director Of Restaurant Operations: Kevyn Parmar MD, PhD CLIA Number: [id number] Performed By: #### P ETH ####[facility]IA [id number] [place] [address] SEPSIS LACTATE W/ REFLEX (IN ITIAL)on 12-09-2024 Lactate [Moles/Vol] 1.1 mmol/L Normal <=2.0 [facility] Comment on above: Order Comment: Speci men Type: BLOOD SPECIMENOrdering Facility: [facility] Address: [address] [place] [address] Performed By: #### S LACTR ####[facility] LABCLIA [id number] [place] [address] [place] CBC WITH AUTO DIFFERENTIALon 12-08-2024 BASOPHILS ABSOLUTE COUNT (10*3/UL) BY AUTOMATED COUNT 0.1 10*3/uL Normal 0.0-0.2 [facility] Comment on above: Performed By: #### 8 9579-7, 56018-2, 5643-2, 20362-1, LIVR, 3040-3, CBCA, BMP #### [facility] ([id number]) [address] [place] [address] BASOPHILS RELATIVE PERCENT BY AUTOMATED COUNT 1.0 % Normal [facility] Comment on above: Performed By: #### 8 9579-7, 92354-0, 5643-2, 21349-8, LIVR, 3040-3, CBCA, BMP #### [facility] ([id number]) [address] [place] [address] CELLAVISION DIFFERENTIAL TYPE AUTOMATED DIFFERENTIAL Normal [facility] Comment on above: Performed By: #### 8 9579-7, 80262-4, 5643-2, 21248-3, LIVR, 3040-3, CBCA, BMP #### [facility] ([id number]) [address] [place] [address] Eosinophils (Bld) [#/Vol] 0.1 10*3/uL Normal 0.0-0.4 [facility] Comment on above: Performed By: #### 8 9579-7, 49896-3, 5643-2, 91900-5, LIVR, 3040-3, CBCA, BMP #### [facility] ([id number]) [address] [place] [address] EOSINOPHILS RELATIVE PERCENT BY AUTOMATED COUNT 0.6 % Normal [facility] Comment on above: Performed By: #### 8 9579-7, 75830-0, 5643-2, 12541-8, LIVR, 3040-3, CBCA, BMP #### [facility] ([id number]) [address] [place] [address] Erythrocyte distribution width (RBC) [Ratio] 13.1 % Normal 11.5-15 [facility] Comment on above: Performed By: #### 8 9579-7, 38120-1, 5643-2, 05090-0, LIVR, 3040-3, CBCA, BMP #### [facility] ([id number]) [address] [place] [address] Hematocrit (Bld) [Volume fraction] 44.9 % Normal 35-47 [facility] Comment on above: Performed By: #### 8 9579-7, 98227-3, 5643-2, 29746-7, LIVR, 3040-3, CBCA, BMP #### [facility] ([id number]) [address] [place] [address] Hemoglobin (Bld) [Mass/Vol] 15.4 g/dL Normal 11.7-15.5 [facility] Comment on above: Performed By: #### 8 9579-7, 10179-3, 5643-2, 58902-7, LIVR, 3040-3, CBCA, BMP #### [facility] ([id number]) [address] [place] [address] LYMPHOCYTES ABSOLUTE COUNT (10*3/UL) BY AUTOMATED COUNT 3.2 10*3/uL Normal 1.0-3.5 [facility] Comment on above: Performed By: #### 8 9579-7, 12280-7, 5643-2, 56692-0, LIVR, 3040-3, CBCA, BMP #### [facility] ([id number]) [address] [place] [address]9769 LYMPHOCYTES RELATIVE PERCENT BY AUTOMATED COUNT 27.5 % Normal [facility] Comment on above: Performed By: #### 8 9579-7, 41540-3, 5643-2, 38426-1, LIVR, 3040-3, CBCA, BMP #### [facility] ([id number]) [address] [place] [address]7868 MCH (RBC) [Entitic mass] 32.4 pg Normal 27-34 [facility] Comment on above: Performed By: #### 8 9579-7, 36801-2, 5643-2, 63788-5, LIVR, 3040-3, CBCA, BMP #### [facility] ([id number]) [address] [place] [address] 19687 MCHC (RBC) [Mass/Vol] 34.3 g/dL Normal 32-36 [facility] Comment on above: Performed By: #### 8 9579-7, 02356-2, 5643-2, 73249-0, LIVR, 3040-3, CBCA, BMP #### [facility] ([id number]) [address] [place] [address] 70217 MCV (RBC) [Entitic vol] 95 fL Normal 80-100 [facility] Comment on above: Performed By: #### 8 9579-7, 45760-7, 5643-2, 08076-1, LIVR, 3040-3, CBCA, BMP #### [facility] ([id number]) [address] [place] [address] 15151 MONOCYTES ABSOLUTE COUNT (10*3/UL) BY AUTOMATED COUNT 0.9 10*3/uL Normal 0.0-0.9 [facility] Comment on above: Performed By: #### 8 9579-7, 77596-6, 5643-2, 61022-8, LIVR, 3040-3, CBCA, BMP #### [facility] ([id number]) [address] [place] [address] 31787 MONOCYTES RELATIVE PERCENT BY AUTOMATED COUNT 8.1 % Normal [facility] Comment on above: Performed By: #### 8 9579-7, 07453-5, 5643-2, 77349-1, LIVR, 3040-3, CBCA, BMP #### [facility] ([id number]) [address] [place] [address] 16780 NEUTROPHILS ABSOLUTE COUNT BY AUTOMATED COUNT 7.3 10*3/uL High 1.5-6.6 [facility] Comment on above: Performed By: #### 8 9579-7, 24008-4, 5643-2, 58896-4, LIVR, 3040-3, CBCA, BMP #### [facility] ([id number]) [address] [place] [address] 49782 NEUTROPHILS RELATIVE PERCENT BY AUTOMATED COUNT 62.8 % Normal [facility] Comment on above: Performed By: #### 8 9579-7, 77982-5, 5643-2, 52113-4, LIVR, 3040-3, CBCA, BMP #### [facility] ([id number]) [address] [place] [address] 43604 Platelet mean volume (Bld) [Entitic vol] 7.8 fL Normal 7-12 [facility] Comment on above: Performed By: #### 8 9579-7, 10599-9, 5643-2, 42782-8, LIVR, 3040-3, CBCA, BMP #### [facility] ([id number]) [address] [place] [address] 50390 Platelets (Bld) [#/Vol] 404 10*3/uL Normal 150-450 [facility] Comment on above: Performed By: #### 8 9579-7, 48617-8, 5643-2, 22521-1, LIVR, 3040-3, CBCA, BMP #### [facility] ([id number]) [address] [place] [address] 01264 RBC COUNT 4.75 X10E12/L Normal 3.8-5.2 [facility] Comment on above: Performed By: #### 8 9579-7, 55417-6, 5643-2, 48912-7, LIVR, 3040-3, CBCA, BMP #### [facility] ([id number]) [address] [place] [address] 36457 WBC (Bld) [#/Vol] 11.6 10*3/uL High 4-11 [facility] Comment on above: Performed By: #### 8 9579-7, 86175-1, 5643-2, 62707-6, LIVR, 3040-3, CBCA, BMP #### [facility] ([id number]) [address] [place] [address] 21302 COMPREHENSIVE METABOLIC PANE Nimesh 12-08-2024 Albumin [Mass/Vol] 4.5 g/dL Normal 3.2-5.3 [facility] Comment on above: Performed By: #### 8 9579-7, 62742-1, 5643-2, 31004-3, LIVR, 3040-3, CBCA, BMP #### [facility] ([id number]) [address] [place] [address] 42576 ALP [Catalytic activity/Vol] 156 U/L High 39-130 [facility] Comment on above: Performed By: #### 8 9579-7, 51578-3, 5643-2, 36743-0, LIVR, 3040-3, CBCA, BMP #### [facility] ([id number]) [address] [place] [address] 70832 ALT [Catalytic activity/Vol] 21 U/L Normal <=31 [facility] Comment on above: Performed By: #### 8 9579-7, 21088-5, 5643-2, 93521-5, LIVR, 3040-3, CBCA, BMP #### [facility] ([id number]) [address] [place] [address] 21808 Anion gap [Moles/Vol] 13 mmol/L Normal 5-15 [facility] Comment on above: Performed By: #### 8 9579-7, 26623-4, 5643-2, 29792-8, LIVR, 3040-3, CBCA, BMP #### [facility] ([id number]) [address] [place] [address] 39224 AST [Catalytic activity/Vol] 23 U/L Normal <=41 [facility] Comment on above: Performed By: #### 8 9579-7, 87027-5, 5643-2, 29262-9, LIVR, 3040-3, CBCA, BMP #### [facility] ([id number]) [address] [place] [address] 33643 Bilirubin [Mass/Vol] 0.4 mg/dL Normal 0.3-1.2 [facility] Comment on above: Performed By: #### 8 9579-7, 63852-7, 5643-2, 27053-4, LIVR, 3040-3, CBCA, BMP #### [facility] ([id number]) [address] [place] [address] 00018 Calcium [Mass/Vol] 10.3 mg/dL Normal 8.5-10.5 [facility] Comment on above: Performed By: #### 8 9579-7, 47154-8, 5643-2, 51636-2, LIVR, 3040-3, CBCA, BMP #### [facility] ([id number]) [address] [place] [address] 09135 Chloride [Moles/Vol] 104 mmol/L Normal 98-109 [facility] Comment on above: Performed By: #### 8 9579-7, 94255-4, 5643-2, 42568-0, LIVR, 3040-3, CBCA, BMP #### [facility] ([id number]) [address] [place] [address] 53706 CO2 [Moles/Vol] 21 mmol/L Low 22-32 [facility] Comment on above: Performed By: #### 8 9579-7, 19817-4, 5643-2, 93432-6, LIVR, 3040-3, CBCA, BMP #### [facility] ([id number]) [address] [place] [address] 46997 Creatinine [Mass/Vol] 0.79 mg/dL Normal 0.40-1.00 [facility] Comment on above: Result Comment: METH OD TRACEABLE TO IDMS STANDARD Performed By: #### 8 9579-7, 97229-9, 5643-2, 62964-1, LIVR, 3040-3, CBCA, BMP #### [facility] ([id number]) [address] [place] [address] 18959 GFR/1.73 sq M.predicted among non-blacks MDRD (S/P/Bld) [Vol rate/Area] 88 mL/min/{1.73_m2} Normal >=60 [facility] Comment on above: Result Comment: eGFR not reported due to non-numeric value for Creatinine. Reported eGFR is based on the CKD-EPI 1 equation that does not use a race coefficient. Performed By: #### 8 9579-7, 60104-1, 5643-2, 24019-0, LIVR, 3040-3, CBCA, BMP #### [facility] ([id number]) [address] [place] [address] 96828 Glucose [Mass/Vol] 114 mg/dL High 65-99 [facility] Comment on above: Performed By: #### 8 9579-7, 46746-5, 5643-2, 97142-3, LIVR, 3040-3, CBCA, BMP #### [facility] ([id number]) [address] [place] [address] 55914 Potassium [Moles/Vol] 3.8 mmol/L Normal 3.5-5.0 [facility] Comment on above: Performed By: #### 8 9579-7, 92565-1, 5643-2, 74383-6, LIVR, 3040-3, CBCA, BMP #### [facility] ([id number]) [address] [place] [address] 33071 Protein [Mass/Vol] 8.5 g/dL High 6.0-8.0 [facility] Comment on above: Performed By: #### 8 9579-7, 50200-7, 5643-2, 33841-1, LIVR, 3040-3, CBCA, BMP #### [facility] ([id number]) [address] [place] [address] 99619 Sodium [Moles/Vol] 138 mmol/L Normal 134-146 [facility] Comment on above: Performed By: #### 8 9579-7, 14120-3, 5643-2, 95319-9, LIVR, 3040-3, CBCA, BMP #### [facility] ([id number]) [address] [place] [address] Urea nitrogen [Mass/Vol] 11 mg/dL Normal 5-23 [facility] Comment on above: Performed By: #### 8 9579-7, 60146-7, 5643-2, 54340-1, LIVR, 3040-3, CBCA, BMP #### [facility] ([id number]) [address] [place] [address] CT ABDOMEN AND PELVIS W CONT on [...] Arce MD on 12/08/2024 10:27 PM Normal [facility] LACTATE W/ REFLEXon 12-09-19 25 LACTATE W/REFLEX 1.4 mmol/L Normal 0.4-2.0 [facility] Comment on above: Order Comment: Resul t did not trigger repeat Lactate,re-order if needed. Performed By: #### 8 9579-7, 88710-2, 5643-2, 15893-3, LIVR, 3040-3, CBCA, BMP #### [facility] ([id number]) [address] [place] [id number] LIPASEon 12-08-2024 Lipase [Catalytic activity/Vol] 66 U/L High 17-40 [facility] Comment on above: Performed By: #### 8 9579-7, 19279-4, 5643-2, 98042-2, LIVR, 3040-3, CBCA, BMP #### [facility] ([id number]) [address] [place] [id number] MAGNESIUMon 12-08-2024 Magnesium [Mass/Vol] 2.2 mg/dL Normal 1.8-2.6 [facility] Comment on above: Performed By: #### 8 9579-7, 92040-5, 5643-2, 64254-5, LIVR, 3040-3, CBCA, BMP #### [facility] ([id number]) [address] [place] [address], [place] [address] Discharge Note-Nursingon Discharge Note-Nursing Discharge Note-Nu rsing I accessed this chart because [facility] ER called, this pt is currently at their ER and the provider was requesting the records of the pt's stay here. A pt signature authorizing the share of this info was collected via FAX. [facility] Discharge Note-Nursingon Discharge Note-Nursing Discharge Note-Nu rsing JANUSZCHIOMA :1970 Visit Date:11/24/2024 Inpatient Discharge Instructions Your Care Team Admitting Physician - Geno Martin MD Reason for Your Visit Nausea, vomitting, abdominal pain Your Diagnosis Acute on chronic pancreatitis Leukocytosis History of alcohol use Smoker Abdominal pain Abdominal problem Nausea This Is Your Medications List acetaminophen-hydrocodone (Hassell 325 mg-5 mg oral tablet) amitriptyline (amitriptyline [...] When Why Instructions Next Dose New acetaminophen-hydrocodone (Hassell 325 mg-5 mg oral tablet) 1 Tablets By Mouth Every 6 hours as needed for for pain Acute on chronic pancreatitis Duration: 5 Days Pickup at [facility] Take as needed every 6 hours for pain New pantoprazole (Pantoprazole [address] Tab) 1 Tablets By Mouth Every day Duration: 30 Days Pickup at [facility] 11/30 @9am Unchanged amitriptyline (amitriptyline [...] a day 2pm and 9pm Pharmacy Information [facility]: [address] [place], [place] [id number] [phone] Test Results CBC BMP WBC: 8.2 E9/L [...] you eat. (more content not included)... Normal [facility] Inpatient Clinical Summaryon 11-29-2024 Inpatient Clinical Summary Inpatient Clinical Summary [address] [address] Clinical Summary Person Information: Name: CHIOMA ARCINIEGA Age: 54 Years : 1970 Sex: Female PCP: NONE, XXXX Marital Status: Race: White Ethnicity: Non- or Language: [place] Visit Id: Visit Reason: Abdominal problem; Nausea; Abdominal pain; SEVERE ABD PAIN, N/V Speciality: Acuity: Enc Type: Inpatient Med Service: Medical Arrival: 11/24/2024 20:08:05 Discharge: Dispo Type: Admitted as IP to this Hosp Address: [address] [place] [id number] Provider Notes: Diagnosis: 1:Acute on chronic pancreatitis; [...] Documented This Visit Final Med List: acetaminophen-hydrocodone (Hassell 325 mg-5 mg oral tablet) 1 Tablets [...] NONE , [place] Patient Education Information: Normal [facility] Inpatient Patient Summaryon 11-29-2024 Inpatient Patient Summary Inpatient Patient Summary [place] [id number] Patient Discharge Instructions PERSON INFORMATION Name: CHIOMA [...] to find a nearby participating provider. Comment: IJANUSZ MICHELLE, have received the attached patient education materials/instructions and have verbalized understanding: Patient Signature ____ Date Clinican/Nurse Signature Date HERE ARE THE MEDICATION CHANGES THAT OCCURRED DURING YOUR HOSPITAL STAY New Medications [facility], [address] [place], [place] [id number], [phone] acetaminophen-hydrocodone (Hassell 325 mg-5 mg oral tablet) 1 Tablets [...] THIS WITH YOU AT ALL TIMES. acetaminophen-hydrocodone (Hassell 325 mg-5 mg oral tablet) 1 Tablets [...] to serve you. Thank you for choosing [facility] Normal [facility] BMPon 11-28-2024 Anion gap [Moles/Vol] 8 mmol/L Normal 6-16 [facility] Comment on above: Performed By: #### 2 [id number] #### [facility] [address] [place] [address] BUN/Creat Ratio 7 No Units Low 10-[address] [facility] Comment on above: Performed By: #### 2 [id number] #### [facility] [address] [place] [address] Calcium [Mass/Vol] 8.5 mg/dL Low 8.9-11.1 [facility] Comment on above: Performed By: #### 2 [id number] #### [facility] [address] [place] [address] Chloride [Moles/Vol] 110 mmol/L Normal 101-111 [facility] Comment on above: Performed By: #### 2 [id number] #### [facility] [address] [place] [address] CO2 [Moles/Vol] 24 mmol/L Normal 21-[address] [facility] Comment on above: Performed By: #### 2 [id number] #### [facility] [address] [place] [address] Creatinine [Mass/Vol] 0.7 mg/dL Normal 0.5-1.3 [facility] Comment on above: Performed By: #### 2 [id number] #### [facility] [address] [place] [address] Glucose [Mass/Vol] 99 mg/dL Normal 55-199 [facility] Comment on above: Performed By: #### 2 [id number] #### [facility] [address] [place] [address] Potassium [Moles/Vol] 3.9 mmol/L Normal 3.5-5.3 [facility] Comment on above: Performed By: #### 2 775332 #### [facility] [address] [place] [address] Sodium [Moles/Vol] 138 mmol/L Normal 135-145 [facility] Comment on above: Performed By: #### 2 514468 #### [facility] [address] [place] [address] Urea nitrogen [Mass/Vol] 5 mg/dL Normal 5-21 [facility] Comment on above: Performed By: #### 2 650392 #### [facility] [address] [place] [address] Extra [place] 11-28-2024 WB Tube Collected Yes Invalid Interpretation Code [facility] Comment on above: Performed By: #### 1 [id number] #### [facility] [address] [place] [address] Interdisciplinary Note - Dwayne e Manageron 11-28-2024 Interdisciplinary Note - Frame Bender Interdisciplinary Note - Frame Bender CM followed up with patient at bedside. Patient is form home with and family. Patient continues to deny any additional discharge needs and will transport home at discharge. CM rounded with attending Dr Guido and possible DC tomorrow pending progress. CM will continue to follow. Normal [facility] Comment on above: Result Comment: Elec tronically Signed By: Lara Wilson\Date and Time Signed: 11/28/24 12:19 EDT Lipase Levelon 11-28-2024 Lipase Lvl 102 unit/L High 13-58 [facility] Comment on above: Performed By: #### 2 [id number] #### [facility] [address] [place] [address] eGFRon 11-28-2024 eGFR 102 mL/min/1.73 m2 Normal >=59 [facility] Comment on above: Performed By: #### 1 [id number] #### [facility] [address] [place] [address] BMPon 11-27-2024 Anion gap [Moles/Vol] 7 mmol/L Normal 6-16 [facility] Comment on above: Performed By: #### 2 952752 #### [facility] [address] [place] [address] BUN/Creat Ratio 9 No Units Low 10-[address] [facility] Comment on above: Performed By: #### 2 381050 #### [facility] [address] [place] [address] Calcium [Mass/Vol] 8.6 mg/dL Low 8.9-11.1 [facility] Comment on above: Performed By: #### 2 651994 #### [facility] [address] [place] [address] Chloride [Moles/Vol] 109 mmol/L Normal 101-111 [facility] Comment on above: Performed By: #### 2 355750 #### [facility] [address] [place] [address] CO2 [Moles/Vol] 28 mmol/L Normal 21-[address] [facility] Comment on above: Performed By: #### 2 628507 #### [facility] [address] [place] [address] Creatinine [Mass/Vol] 0.7 mg/dL Normal 0.5-1.3 [facility] Comment on above: Performed By: #### 2 302715 #### [facility] [address] [place] [address] Glucose [Mass/Vol] 86 mg/dL Normal 55-199 [facility] Comment on above: Performed By: #### 2 048159 #### [facility] [address] [place] [address] Potassium [Moles/Vol] 4.2 mmol/L Normal 3.5-5.3 [facility] Comment on above: Performed By: #### 2 494192 #### [facility] [address] [place] [address] Sodium [Moles/Vol] 140 mmol/L Normal 135-145 [facility] Comment on above: Performed By: #### 2 107711 #### [facility] [address] [place] [address] Urea nitrogen [Mass/Vol] 6 mg/dL Normal 5-21 [facility] Comment on above: Performed By: #### 2 964109 #### [facility] [address] [place] [address] CBC w/Indiceson 11-27-2024 Erythrocyte distribution width (RBC) [Ratio] 12.9 % Normal 10.9-14.2 [facility] Comment on above: Performed By: #### 2 169128 #### [facility] [address] [place] [address] Hematocrit (Bld) [Volume fraction] 33.9 % Low 34.0-46.0 [facility] Comment on above: Performed By: #### 2 337609 #### [facility] [address] [place] [address] Hemoglobin (Bld) [Mass/Vol] 11.5 g/dL Low 12.0-16.0 [facility] Comment on above: Performed By: #### 2 193391 #### [facility] [address] [place] [address] MCH (RBC) [Entitic mass] 32.8 pg Normal 27.0-34.0 [facility] Comment on above: Performed By: #### 2 246570 #### [facility] [address] [place] [address] MCHC (RBC) [Mass/Vol] 34.0 g/dL Normal 31.4-36.0 [facility] Comment on above: Performed By: #### 2 643808 #### [facility] [address] [place] [address] MCV (RBC) [Entitic vol] 96.5 fL Normal 80.0-100.0 [facility] Comment on above: Performed By: #### 2 982892 #### [facility] [address] [place] [address] Platelet 225.0 E9/L Normal 150.0-500. 0 [facility] Comment on above: Performed By: #### 2 046191 #### [facility] [address] [place] [address] Platelet mean volume (Bld) [Entitic vol] 8.0 fL Normal 6.4-10.8 [facility] Comment on above: Performed By: #### 2 373182 #### [facility] [address] [place] [address] RBC 3.5 E12/L Low 4.3-5.9 [facility] Comment on above: Performed By: #### 2 [id number] #### [facility] [address] [place] [address] RBC morphology finding Nom (Bld) NORMAL Invalid Interpretation Code [facility] Comment on above: Performed By: #### 2 698387 #### [facility] [address] [place] [address] WBC 8.2 E9/L Normal 4.0-11.0 [facility] Comment on above: Performed By: #### 2 907804 #### [facility] [address] [place] [address] Lipase Levelon 11-27-2024 Lipase Lvl 159 unit/L High 13-58 [facility] Comment on above: Performed By: #### 2 [id number] #### [facility] [address] [place] [address] eGFRon 11-27-2024 eGFR 102 mL/min/1.73 m2 Normal >=59 [facility] Comment on above: Performed By: #### 1 [id number] #### [facility] [address] [place] [address] CBC w/ Auto Diffon 5 Basophil Absolute 0.0 E9/L Normal 0.0-0.2 [facility] Comment on above: Performed By: #### 2 363403 #### [facility] [address] [place] [address] Basophils/100 WBC (Bld) 0.6 % Normal 0.0-2.0 [facility] Comment on above: Performed By: #### 2 830232 #### [facility] [address] [place] [address] Eos Absolute 0.1 E9/L Normal 0.0-0.5 [facility] Comment on above: Performed By: #### 2 338298 #### [facility] [address] [place] [address] Eosinophils/100 WBC (Bld) 1.7 % Normal 0.0-8.0 [facility] Comment on above: Performed By: #### 2 577238 #### [facility] [address] [place] [address] Erythrocyte distribution width (RBC) [Ratio] 12.9 % Normal 10.9-14.2 [facility] Comment on above: Performed By: #### 2 162426 #### [facility] [address] [place] [address] Hematocrit (Bld) [Volume fraction] 33.6 % Low 34.0-46.0 [facility] Comment on above: Performed By: #### 2 531375 #### [facility] [address] [place] [address] Hemoglobin (Bld) [Mass/Vol] 11.6 g/dL Low 12.0-16.0 [facility] Comment on above: Performed By: #### 2 413787 #### [facility] [address] [place] [address] Lymph Absolute 3.0 E9/L Normal 1.0-4.0 [facility] Comment on above: Performed By: #### 2 081012 #### [facility] [address] [place] [address] Lymphocytes/100 WBC (Bld) 39.1 % Normal 14.0-50.0 [facility] Comment on above: Performed By: #### 2 279400 #### [facility] [address] [place] [address] MCH (RBC) [Entitic mass] 33.8 pg Normal 27.0-34.0 [facility] Comment on above: Performed By: #### 2 524239 #### [facility] [address] [place] [address] MCHC (RBC) [Mass/Vol] 34.6 g/dL Normal 31.4-36.0 [facility] Comment on above: Performed By: #### 2 293775 #### [facility] [address] [place] [address] MCV (RBC) [Entitic vol] 97.8 fL Normal 80.0-100.0 [facility] Comment on above: Performed By: #### 2 136057 #### [facility] [address] [place] [address] [place] Absolute 0.7 E9/L Normal 0.2-1.0 [facility] Comment on above: Performed By: #### 2 755566 #### [facility] [address] [place] [address] Monocytes/100 WBC (Bld) 9.7 % Normal 4.0-14.0 [facility] Comment on above: Performed By: #### 2 242801 #### [facility] [address] [place] [address] Neutro Absolute 3.8 E9/L Normal 2.0-7.[address] [facility] Comment on above: Performed By: #### 2 865837 #### [facility] [address] [place] [address] Neutro Auto 48.9 % Normal 36.0-75.0 [facility] Comment on above: Performed By: #### 2 184533 #### [facility] [address] [place] [address] Platelet 255.0 E9/L Normal 150.0-500. 0 [facility] Comment on above: Performed By: #### 2 742210 #### [facility] [address] [place] [address] Platelet mean volume (Bld) [Entitic vol] 7.8 fL Normal 6.4-10.8 [facility] Comment on above: Performed By: #### 2 841707 #### [facility] [address] [place] [address] RBC 3.4 E12/L Low 4.3-5.9 [facility] Comment on above: Performed By: #### 2 855827 #### [facility] [address] [place] [address] WBC 7.7 E9/L Normal 4.0-11.0 [facility] Comment on above: Performed By: #### 2 544134 #### [facility] [address] [place] [address] CMPon 11-26-2024 Albumin [Mass/Vol] 3.5 g/dL Normal 3.3-5.0 [facility] Comment on above: Performed By: #### 2 749349 #### [facility] [address] [place] [address] Albumin/Globulin [Mass ratio] 1.8 {ratio} Normal 1.1-2.2 [facility] Comment on above: Performed By: #### 2 546059 #### [facility] [address] [place] [address] Alk Phos 121 Int._Unit/L High 21-[address] [facility] Comment on above: Performed By: #### 2 844843 #### [facility] [address] [place] [address] ALT 18 Int._Unit/L Normal 6-46 [facility] Comment on above: Performed By: #### 2 212593 #### [facility] [address] [place] [address] Anion gap [Moles/Vol] 7 mmol/L Normal 6-16 [facility] Comment on above: Performed By: #### 2 360920 #### [facility] [address] [place] [address] AST 29 Int._Unit/L Normal 5-43 [facility] Comment on above: Performed By: #### 2 785018 #### [facility] [address] [place] [address] Bili Total 0.3 mg/dL Normal 0.0-1.1 [facility] Comment on above: Performed By: #### 2 026557 #### [facility] [address] [place] [address] BUN/Creat Ratio 10 No Units Normal 10-20 [facility] Comment on above: Performed By: #### 2 854060 #### [facility] [address] [place] [address] Calcium [Mass/Vol] 8.7 mg/dL Low 8.9-11.1 [facility] Comment on above: Performed By: #### 2 543249 #### [facility] [address] [place] [address] Chloride [Moles/Vol] 107 mmol/L Normal 101-111 [facility] Comment on above: Performed By: #### 2 653416 #### [facility] [address] [place] [address] CO2 [Moles/Vol] 28 mmol/L Normal 21-[address] [facility] Comment on above: Performed By: #### 2 255079 #### [facility] [address] [place] [address] Creatinine [Mass/Vol] 0.8 mg/dL Normal 0.5-1.3 [facility] Comment on above: Performed By: #### 2 116848 #### [facility] [address] [place] [address] Globulin (S) [Mass/Vol] 1.9 g/dL Normal 1.4-4.0 [facility] Comment on above: Performed By: #### 2 557815 #### [facility] [address] [place] [address] Glucose [Mass/Vol] 84 mg/dL Normal 55-199 [facility] Comment on above: Performed By: #### 2 785427 #### [facility] [address] [place] [address] Potassium [Moles/Vol] 4.0 mmol/L Normal 3.5-5.3 [facility] Comment on above: Performed By: #### 2 911892 #### [facility] [address] [place] [address] Protein [Mass/Vol] 5.4 g/dL Low 6.0-7.8 [facility] Comment on above: Performed By: #### 2 557556 #### [facility] [address] [place] [address] Sodium [Moles/Vol] 138 mmol/L Normal 135-145 [facility] Comment on above: Performed By: #### 2 008404 #### [facility] [address] [place] [address] Urea nitrogen [Mass/Vol] 8 mg/dL Normal 5-21 [facility] Comment on above: Performed By: #### 2 147811 #### [facility] [address] [place] [address] Lipase Levelon 11-26-2024 Lipase Lvl 240 unit/L High 13-58 [facility] Comment on above: Performed By: #### 2 396699 #### [facility] [address] [place] [address] eGFRon 11-26-2024 eGFR 87 mL/min/1.73 m2 Normal >=59 [facility] Comment on above: Performed By: #### 1 [id number] #### [facility] [address] [place] [address] ED Clinical Summaryon 2024 ED Clinical Summary ED Clinical Summary [address] [address] ED Clinical Summary Person Information Name: CHIOMA ARCINIEGA[place] Age: 54 Years : 1970 Sex: Female Language: [place] PCP: NONE, XXXX Marital Status: Visit Id: [...] 11/25/2024 01:08:38 Lab Request 11/25/2024 01:08:38 ADDRESS: [address] [place] [id number] [facility] NOTES: MEDICAL INFORMATION: Prescriptions Given: Medications to Continue with No Changes Other Medications promethazine (promethazine 25 mg Tab) 1 Tablets By Mouth 3 times a day. Refills: 0. PATIENT EDUCATION INFORMATION: Instructions: Follow up: DIAGNOSIS: Acute on chronic pancreatitis; Other chronic pancreatitis Normal [facility] ED Note-Physicianon 11-26-19 ED Note-Physician ED Note-Physician Basic Information Time Seen: Mando Ernandez DOin M. 11/24/2024 21:59 Chief Complaint pt to ED [...] most recently a GI physician at the [facility] who performs interventional pain management treatments [...] more ciga (more content not included)... Normal [facility] Comment on above: Result Comment: Elec tronically Signed By: Loki Ernandez DO\.br\Date and Time Signed: 11/25/24 01:13 EDT ED Patient Education Noteon 11-25-2024 ED Patient Education Note ED Patient Education Note Normal [facility] ED Patient Summaryon 025 ED Patient Summary ED Patient Summary [place] [id number] Patient Discharge Instructions Person Information Name: CHIOMA ARCINIEGA Age: 54 Years Arrival Date: 11/24/2024 20:08:05 Discharge Diagnosis: Acute on chronic pancreatitis; Other chronic pancreatitis Primary Care Physician: NONE, XXXX Provider Information Primary Provider: Loki Ernandez DO [employer] Supervisor:None The exam and treatment you received in the Emergency Department were for an urgent problem and are not intended as complete care. It is important that you follow up with a doctor, nurse practitioner, or physician???s assistant farm operations manager for ongoing care. If your symptoms become worse or you do not improve as expected and you are unable to reach your usual health care provider, you should return to the Emergency Department. We are available 24 hours a day. JANUSZ CHIOMA has been given the following list of [...] opioids can be used to help relieve otojfnzl-cw-eieglt pain and are often prescribed following a [...] be struggling with addiction, tell your health campground caretaker and ask for guidance or call [facility] [employer] Helpline at [phone]. n Source: [place] Department of Health and Human Services/C (more content not included)... [facility] Interdisciplinary Note - Dwayne e Manageron 11-25-2024 Interdisciplinary Note - Frame Bender Interdisciplinary Note - Frame Bender CM met with patient at bedside. Patient states she is from home with and her daughter/ her boyfriend/ their baby twins and another small child are all living with her. Patient is independent with all self care drives and does not use DME in the home. Patient denies any discharge needs at this time and will transport home. Patient follows with [facility] in [place] for her PCP needs and Dr Hathaway is attending. Plan remains home no needs when medically stable. Patient admitted [place] for pancreatitis. CM to follow. [facility] Comment on above: Result Comment: Elec tronically Signed By: Lara Wilson I\.higinio\Date and Time Signed: 11/25/24 09:21 EDT BMPon 11-24-2024 Anion gap [Moles/Vol] 13 mmol/L Normal 6-16 [facility] Comment on above: Performed By: #### 2 [id number] #### [facility] [address] [place] [address] BUN/Creat Ratio 13 No Units Normal 10-20 [facility] Comment on above: Performed By: #### 2 339339 #### [facility] [address] [place] [address] Calcium [Mass/Vol] 10.7 mg/dL Normal 8.9-11.1 [facility] Comment on above: Performed By: #### 2 [id number] #### [facility] [address] [place] [address] Chloride [Moles/Vol] 100 mmol/L Low 101-111 [facility] Comment on above: Performed By: #### 2 132372 #### [facility] [address] [place] [address] CO2 [Moles/Vol] 30 mmol/L Normal 21-[address] [facility] Comment on above: Performed By: #### 2 734006 #### [facility] [address] [place] [address] Creatinine [Mass/Vol] 0.9 mg/dL Normal 0.5-1.3 [facility] Comment on above: Performed By: #### 2 159431 #### [facility] [address] [place] [address] Glucose [Mass/Vol] 109 mg/dL Normal 55-199 [facility] Comment on above: Performed By: #### 2 171276 #### [facility] [facility] [address] [place] [address] Potassium [Moles/Vol] 3.8 mmol/L Normal 3.5-5.3 [facility] Comment on above: Performed By: #### 2 [id number] #### [facility] [address] [place] [address] Sodium [Moles/Vol] 139 mmol/L Normal 135-145 [facility] Comment on above: Performed By: #### 2 [id number] #### [facility] [address] [place] [address] Urea nitrogen [Mass/Vol] 12 mg/dL Normal 5-21 [facility] Comment on above: Performed By: #### 2 [id number] #### [facility] [address] [place] [address] CBC w/ Auto Diffon 5 Basophil Absolute 0.1 E9/L Normal 0.0-0.2 [facility] Comment on above: Performed By: #### 2 [id number] #### [facility] [address] [place] [address] Basophils/100 WBC (Bld) 0.6 % Normal 0.0-2.0 [facility] Comment on above: Performed By: #### 2 [id number] #### [facility] [address] [place] [address] Eos Absolute 0.1 E9/L Normal 0.0-0.5 [facility] Comment on above: Performed By: #### 2 [id number] #### [facility] [address] [place] [address] Eosinophils/100 WBC (Bld) 0.6 % Normal 0.0-8.0 [facility] Comment on above: Performed By: #### 2 [id number] #### [facility] [address] [place] [address] Erythrocyte distribution width (RBC) [Ratio] 13.0 % Normal 10.9-14.2 [facility] Comment on above: Performed By: #### 2 [id number] #### [facility] [address] [place] [address] Hematocrit (Bld) [Volume fraction] 45.4 % Normal 34.0-46.0 [facility] Comment on above: Performed By: #### 2 [id number] #### [facility] [address] [place] [address] Hemoglobin (Bld) [Mass/Vol] 15.3 g/dL Normal 12.0-16.0 [facility] Comment on above: Performed By: #### 2 [id number] #### [facility] [address] [place] [address] Lymph Absolute 2.6 E9/L Normal 1.0-4.0 [facility] Comment on above: Performed By: #### 2 [id number] #### [facility] [address] [place] [address] Lymphocytes/100 WBC (Bld) 18.2 % Normal 14.0-50.0 [facility] Comment on above: Performed By: #### 2 [id number] #### [facility] [address] [place] [address] MCH (RBC) [Entitic mass] 32.2 pg Normal 27.0-34.0 [facility] Comment on above: Performed By: #### 2 [id number] #### [facility] [address] [place] [address] MCHC (RBC) [Mass/Vol] 33.6 g/dL Normal 31.4-36.0 [facility] Comment on above: Performed By: #### 2 [id number] #### [facility] [address] [place] [address] MCV (RBC) [Entitic vol] 95.9 fL Normal 80.0-100.0 [facility] Comment on above: Performed By: #### 2 [id number] #### [facility] [address] [place] [address] [place] Absolute 1.5 E9/L High 0.2-1.0 [facility] Comment on above: Performed By: #### 2 [id number] #### [facility] [address] [place] [address] Monocytes/100 WBC (Bld) 10.5 % Normal 4.0-14.0 [facility] Comment on above: Performed By: #### 2 [id number] #### [facility] [address] [place] [address] Neutro Absolute 10.0 E9/L High 2.0-7.[address] [facility] Comment on above: Performed By: #### 2 [id number] #### [facility] [address] [place] [address] Neutro Auto 70.1 % Normal 36.0-75.0 [facility] Comment on above: Performed By: #### 2 555594 #### [facility] [address] [place] [address] Platelet 373.0 E9/L Normal 150.0-500. 0 [facility] Comment on above: Performed By: #### 2 [id number] #### [facility] [address] [place] [address] Platelet mean volume (Bld) [Entitic vol] 7.8 fL Normal 6.4-10.8 [facility] Comment on above: Performed By: #### 2 [id number] #### [facility] [address] [place] [address] RBC 4.7 E12/L Normal 4.3-5.9 [facility] Comment on above: Performed By: #### 2 [id number] #### [facility] [address] [place] [address] WBC 14.3 E9/L High 4.0-11.0 [facility] Comment on above: Performed By: #### 2 576021 #### [facility] [address] [place] [address] Extra Blueon 11-24-2024 Tube Collected Plasma Yes Invalid Interpretation Code [facility] Comment on above: Performed By: #### 1 [id number] #### [facility] [address] [place] [address] Hep Func Panelon 11-24-2024 Albumin [Mass/Vol] 4.9 g/dL Normal 3.3-5.0 [facility] Comment on above: Performed By: #### 2 [id number] #### [facility] [address] [place] [address] Albumin/Globulin [Mass ratio] 1.6 {ratio} Normal 1.1-2.2 [facility] Comment on above: Performed By: #### 2 [id number] #### [facility] [address] [place] [address] Alk Phos 169 Int._Unit/L High 21-[address] [facility] Comment on above: Performed By: #### 2 [id number] #### [facility] [address] [place] [address] ALT 12 Int._Unit/L Normal 6-46 [facility] Comment on above: Performed By: #### 2 [id number] #### [facility] [address] [place] [address] AST 19 Int._Unit/L Normal 5-43 [facility] Comment on above: Performed By: #### 2 [id number] #### [facility] [address] [place] [address] Bili Direct 0.0 mg/dL Normal 0.0-0.4 [facility] Comment on above: Performed By: #### 2 [id number] #### [facility] [address] [place] [address] Bili Indirect 0.4 mg/dL Normal 0.1-0.9 [facility] Comment on above: Performed By: #### 2 230247 #### [facility] [address] [place] [address] Bili Total 0.4 mg/dL Normal 0.0-1.1 [facility] Comment on above: Performed By: #### 2 708937 #### [facility] [address] [place] [address] Globulin (S) [Mass/Vol] 3.0 g/dL Normal 1.4-4.0 [facility] Comment on above: Performed By: #### 2 803709 #### [facility] [address] [place] [address] Protein [Mass/Vol] 7.9 g/dL High 6.0-7.8 [facility] Comment on above: Performed By: #### 2 951692 #### [facility] [address] [place] [address] Lipase Levelon 11-24-2024 Lipase Lvl 303 unit/L High 13-58 [facility] Comment on above: Performed By: #### 2 756081 #### [facility] [address] [place] [address] eGFRon 11-24-2024 eGFR 75 mL/min/1.73 m2 Normal >=59 [facility] Comment on above: Performed By: #### 1 [id number] #### [facility] [address] [place] [address] ANES POSTPROC EVALon 025 ANES POSTPROC EVAL HNO ID: [id number] Author: MARLI COSBY MD Service: ? Author [...] November 21, 2024 TIME: 8:23 AM CSN: [id number] Normal [facility] ANES PRE-OPon 11-17-2024 ANES PRE-OP HNO ID: [id number] Author: MARLI COSBY MD Service: ? Author Type: Physician Type: Anesthesia Preprocedure Evaluation Filed: 11/17/2024 14:39 Note Text: ANESTHESIOLOGY DAY OF SURGERY NOTE : 1970 Procedure Information Date/Time: 11/17/24 1530 Scheduled providers: Josse Romo MD; Sandhya Poon APRN.HARDWARE ENGINEER; Marli Cosby MD Procedure: EGD - THERAPEUTIC, [...] and consent discussed: yes. Patient / Responsible Democrat agrees to proceed: yes Patient / Surrogate [...] Outpatient Medications as of 11/17/2024 Medication Sig bcmjlw-zusuidrl-mrvgzmo (CREON) 24,000-76,000 -120,000 unit delayed release capsule Take 2 caps by mouth 3 times daily with meals and 1 cap with each snack. Take 1st cap before meal starts and the 2nd cap longterm through. Max of 10 capsules per day. [...] November 17, 2024 TIME: 2:38 PM CSN: [id number] Normal [facility] EGD Study observation Narrat iveon 11-17-2024 [facility] Radiology Study observation (narrative) [facility] NURSING PROGon 11-17-2024 NURSING PROG HNO ID: [id number] Author: MAYRA SANTIAGO RN Service: ? Author [...] None Electronically Signed By: Mayra Santiago RN [facility] NURSING PROG HNO ID: [id number] Author: COLIN GUZMAN RN Service: ? Author [...] By: Colin Guzman RN In Department: GASTROENTEROLOGY [facility] CBC auto differentialon Basophils (Bld) [#/Vol] 0.04 10*3/uL [facility] Basophils/100 WBC (Bld) 1 % 0 - 2 % [facility] Eosinophils (Bld) [#/Vol] 0.17 10*3/uL [facility] Eosinophils/100 WBC (Bld) 3 % 1 - 4 % [facility] Erythrocyte distribution width (RBC) [Ratio] 12.3 % 11.8 - 14.4 % [facility] Hematocrit (Bld) [Volume fraction] 35.1 % Low 36.3 - 47.1 % [facility] Hemoglobin (Bld) [Mass/Vol] 11.9 g/dL 11.9 - 15.1 g/dL [facility] Immature granulocytes (Bld) [#/Vol] [facility] Immature granulocytes/100 WBC (Bld) 0 % 0 [facility] Interpretation and review of laboratory results Abnormal [facility] Lymphocytes/100 WBC (Bld) 22 % Low 24 - 43 % [facility] Lymphocytes/100 WBC (Bld) 1.43 % [facility] MCH (RBC) [Entitic mass] 33.1 pg 25.2 - 33.5 pg [facility] MCHC (RBC) [Mass/Vol] 33.9 g/dL 28.4 - 34.8 g/dL [facility] MCV (RBC) [Entitic vol] 97.8 fL 82.6 - 102.9 fL [facility] Monocytes/100 WBC (Bld) 15 % High 3 - 12 % [facility] Monocytes/100 WBC (Bld) 0.99 % [facility] Neutrophils/100 WBC (Bld) 59 % 36 - 65 % [facility] Nucleated RBC/100 WBC (Bld) [Ratio] 0.0 % 0.0 per 100 WBC [facility] Platelet mean volume (Bld) [Entitic vol] 9.8 fL 8.1 - 13.5 fL [facility] Platelets (Bld) [#/Vol] 144 10*3/uL [facility] RBC (Bld) [#/Vol] 3.59 10*6/uL Low 3.95 - 5.11 m/uL [facility] Segmented neutrophils/100 WBC (Bld) 3.84 % [facility] WBC other (Bld) [#/Vol] 6.5 [facility] CBC with Diffon 11-09-2024 Abs. Basophil 0.04 k/uL Normal 0.00-0.20 [facility] Comment on above: Performed By: #### B MP, LIVP, LIP #### [facility] [address] [place] [address] Black Leather Trimmer: Ion Jasso MD Abs.Imm.Granulocyte <0.03 Normal 0.00-0.30 [facility] Comment on above: Performed By: #### B MP, LIVP, LIP #### [facility] [address] [place] [address] Black Leather Trimmer: Ion Jasso MD Abs.Neutrophil (Seg) 3.84 k/uL Normal 1.50-8.10 [facility] Comment on above: Performed By: #### B MP, LIVP, LIP #### [address] [place], [place] [address]83 Black Leather Trimmer: Ion Jasso MD Basophils/100 WBC (Bld) 1 % Normal 0-2 [facility] Comment on above: Performed By: #### B MP, LIVP, LIP #### [address] [place] [id number] Black Leather Trimmer: Ion Jasso MD Eosinophils (Bld) [#/Vol] 0.17 10*3/uL Normal 0.00-0.44 [facility] Comment on above: Performed By: #### B MP, LIVP, LIP #### [address] [place], [place] [address] Black Leather Trimmer: Ion Jasso MD Eosinophils/100 WBC (Bld) 3 % Normal 1-4 [facility] Comment on above: Performed By: #### B MP, LIVP, LIP #### [address] [place], [facility] Black Leather Trimmer: Ion Jasso MD Erythrocyte distribution width (RBC) [Ratio] 12.3 % Normal 11.8-14.4 [facility] Comment on above: Performed By: #### B MP, LIVP, LIP #### [address] [place], [facility] Black Leather Trimmer: Ion Jasso MD Hematocrit (Bld) [Volume fraction] 35.1 % Low 36.3-47.1 [facility] Comment on above: Performed By: #### B MP, LIVP, LIP #### [address] [place] [id number] Black Leather Trimmer: Ion Jasso MD Hemoglobin (Bld) [Mass/Vol] 11.9 g/dL Normal 11.9-15.1 [facility] Comment on above: Performed By: #### B MP, LIVP, LIP #### [facility] [address] [place], [place] [address]83 Black Leather Trimmer: Ion Jasso MD Immature granulocytes/100 WBC (Bld) 0 % Normal 0 [facility] Comment on above: Performed By: #### B MP, LIVP, LIP #### [facility] [address] [place], [place] [address] Black Leather Trimmer: Ion Jasso MD Lymphocytes (Bld) [#/Vol] 1.43 10*3/uL Normal 1.10-3.70 [facility] Comment on above: Performed By: #### B MP, LIVP, LIP #### [address] [place], [place] [address]83 Black Leather Trimmer: Ion Jasso MD Lymphocytes/100 WBC (Bld) 22 % Low 24-43 [facility] Comment on above: Performed By: #### B MP, LIVP, LIP #### [address] [place], [place] [address]83 Black Leather Trimmer: Ion Jasso MD MCH (RBC) [Entitic mass] 33.1 pg Normal 25.2-33.5 [facility] Comment on above: Performed By: #### B MP, LIVP, LIP #### [facility] [address] [place] [address] Dr[place], [place] 8[address]83 Black Leather Trimmer: Ion Jasso MD MCHC (RBC) [Mass/Vol] 33.9 g/dL Normal 28.4-34.8 [facility] Comment on above: Performed By: #### B MP, LIVP, LIP #### [address] [place] [address] Black Leather Trimmer: Ion Jasso MD MCV (RBC) [Entitic vol] 97.8 fL Normal 82.6-102.9 [facility] Comment on above: Performed By: #### B MP, LIVP, LIP #### [facility] [address] [place], [place] 39[address]283 Black Leather Trimmer: Ion Jasso MD Monocytes (Bld) [#/Vol] 0.99 10*3/uL Normal 0.10-1.20 [facility] Comment on above: Performed By: #### B MP, LIVP, LIP #### [facility] [address] [place] [address] Black Leather Trimmer: Ion Jasso MD Monocytes/100 WBC (Bld) 15 % High 3-12 [facility] Comment on above: Performed By: #### B MP, LIVP, LIP #### [facility] [address] [place], [place] [address] Black Leather Trimmer: Ion Jasso MD Neutrophil (Seg) 59 % Normal 36-65 [facility] Comment on above: Performed By: #### B MP, LIVP, LIP #### [address] [place], [place] [phone] Black Leather Trimmer: Ion Jasso MD NRBC Automated 0.0 per 100 WBC Normal 0.0 [facility] Comment on above: Performed By: #### B MP, LIVP, LIP #### [facility] [address] [place], [facility] Black Leather Trimmer: Ion Jasso MD Platelet mean volume (Bld) [Entitic vol] 9.8 fL Normal 8.1-13.5 [facility] Comment on above: Performed By: #### B MP, LIVP, LIP #### [facility] [address] [place] [address] Black Leather Trimmer: Ion Jasso MD Platelets (Bld) [#/Vol] 144 10*3/uL Normal 138-453 [facility] Comment on above: Performed By: #### B MP, LIVP, LIP #### [facility] [address] [place], [place] [id number] Black Leather Trimmer: Ion Jasso MD RBC (Bld) [#/Vol] 3.59 10*6/uL Low 3.95-5.11 [facility] Comment on above: Performed By: #### B MP, LIVP, LIP #### [facility] [address] [place], [place] [phone] Black Leather Trimmer: Ion Jasso MD WBC (Bld) [#/Vol] 6.5 10*3/uL Normal 3.5-11.3 [facility] Comment on above: Performed By: #### B MP, LIVP, LIP #### [address] [place], [place] 2124183 Black Leather Trimmer: Ion Jasso MD Comp Metabolic Pr/rfx MGon 0 - Albumin [Mass/Vol] 3.5 g/dL Normal 3.5-5.2 [facility] Comment on above: Performed By: #### B MP, LIVP, LIP #### [facility] [address] [place], [place] [id number] Black Leather Trimmer: Ion Jasso MD Albumin/Glob Ratio 1.7 Normal 1.0-2.5 [facility] Comment on above: Performed By: #### B MP, LIVP, LIP #### [facility] [address] [place], [place] [id number] Black Leather Trimmer: Ion Jasso MD Alkaline Phos 186 U/L High 35-104 [facility] Comment on above: Performed By: #### B MP, LIVP, LIP #### [facility] [address] [place], [place] [phone] Black Leather Trimmer: Ion Jasso MD ALT [Catalytic activity/Vol] 79 U/L High 10-35 [facility] Comment on above: Performed By: #### B MP, LIVP, LIP #### [facility] [address] [place] [address] Dr[address] [place], [place] 232[address]83 Black Leather Trimmer: Ion Jasso MD Anion gap [Moles/Vol] 12 mmol/L Normal 9-16 [facility] Comment on above: Performed By: #### B MP, LIVP, LIP #### [facility] [address] [place] [address] Dr[place], [place] [id number] Black Leather Trimmer: Ion Jasso MD AST [Catalytic activity/Vol] 62 U/L [facility] 10-35 [facility] Comment on above: Performed By: #### B MP, LIVP, LIP #### [address] [place], [place] [address]83 Black Leather Trimmer: Ion Jasso MD Bilirubin [Mass/Vol] 0.2 mg/dL Normal 0.00-1.20 [facility] Comment on above: Performed By: #### B MP, LIVP, LIP #### [address] [place], [place] 427[address]83 Black Leather Trimmer: Ion Jasso MD BUN/CRE Ratio 5 Low 9-20 [facility] Comment on above: Performed By: #### B MP, LIVP, LIP #### [address] [place], [place] [address]83 Black Leather Trimmer: Ion Jasso MD Calcium [Mass/Vol] 8.9 mg/dL Normal 8.6-10.4 [facility] Comment on above: Performed By: #### B MP, LIVP, LIP #### [address] [place] [address] Black Leather Trimmer: Ion Jasso MD Chloride [Moles/Vol] 107 mmol/L Normal 98-107 [facility] Comment on above: Performed By: #### B MP, LIVP, LIP #### [facility] [address] [place] [address] Black Leather Trimmer: Ion Jasso MD CO2 [Moles/Vol] 22 mmol/L Normal 20-31 [facility] Comment on above: Performed By: #### B MP LIVP, LIP #### [facility] [address] [place] [address] Black Leather Trimmer: Ion Jasso MD Creatinine [Mass/Vol] 0.6 mg/dL Normal 0.50-0.90 [facility] Comment on above: Performed By: #### B MP LIVP, LIP #### [facility] [address] [place] [address] Black Leather Trimmer: Ion Jasso MD GFR/1.73 sq M.predicted among non-blacks MDRD (S/P/Bld) [Vol rate/Area] mL/min/{1.73_m2} Normal >60 [facility] Comment on above: Result Comment: These results [...] By: #### B MP LIVP, LIP #### [facility] [address] [place] [address] Black Leather Trimmer: Ion Jasso MD Glucose [Mass/Vol] 98 mg/dL Normal 74-99 [facility] Comment on above: Performed By: #### B MP LIVP, LIP #### [facility] [address] [place] [address] Black Leather Trimmer: Ion Jasso MD Potassium [Moles/Vol] 3.7 mmol/L Normal 3.7-5.3 [facility] Comment on above: Performed By: #### B MP LIVP, LIP #### [facility] [address] [place] [address] Black Leather Trimmer: Ion Jasso MD Protein [Mass/Vol] 5.6 g/dL Low 6.6-8.7 [facility] Comment on above: Performed By: #### B MP, LIVP, LIP #### [facility] [address] [place] [address] Black Leather Trimmer: Ion Jasso MD Sodium [Moles/Vol] 141 mmol/L Normal 136-145 [facility] Comment on above: Performed By: #### B MP, LIVP, LIP #### [facility] [address] [place] [address] Black Leather Trimmer: Ion Jasso MD Urea nitrogen [Mass/Vol] 3 mg/dL Low 6-20 [facility] Comment on above: Performed By: #### B MP, LIVP, LIP #### [facility] [address] [place] [address] Black Leather Trimmer: Ion Jasso MD Comprehensive Metabolic Pane l w/ Reflex to [facility] 11-09-2024 Albumin [Mass/Vol] 3.5 g/dL 3.5 - 5.2 g/dL [facility] Albumin/Globulin [Mass ratio] 1.7 {ratio} 1.0 - 2.5 [facility] ALP [Catalytic activity/Vol] 186 U/L High 35 - 104 U/L [facility] ALT [Catalytic activity/Vol] 79 U/L High 10 - 35 U/L [facility] Anion gap [Moles/Vol] 12 mmol/L 9 - 16 mmol/L [facility] AST [Catalytic activity/Vol] 62 U/L High 10 - 35 U/L [facility] Bilirubin [Mass/Vol] 0.2 mg/dL 0.00 - 1.20 mg/dL [facility] Calcium [Mass/Vol] 8.9 mg/dL 8.6 - 10. 4 mg/dL [facility] Chloride [Moles/Vol] 107 mmol/L 98 - 10 7 mmol/L [facility] CO2 [Moles/Vol] 22 mmol/L 20 - 31 mmol/L [facility] Creatinine [Mass/Vol] 0.6 mg/dL 0.50 - 0.90 mg/dL [facility] Kaylyn Prather - PINF [facility] Comment on above: These results are not [...] [Mass/Vol] 98 mg/dL 74 - 99 mg/dL [facility] Interpretation and review of laboratory results Abnormal [facility] Potassium [Moles/Vol] 3.7 mmol/L 3.7 - 5.3 mmol/L [facility] Protein [Mass/Vol] 5.6 g/dL Low 6.6 - 8.7 g/dL [facility] Sodium [Moles/Vol] 141 mmol/L 136 - 145 mmol/L [facility] Urea nitrogen [Mass/Vol] 3 mg/dL Low 6 - 20 mg/dL [facility] Urea nitrogen/Creatinine [Mass ratio] 5 mg/mg Low 9 - 20 [facility] Lipaseon 11-09-2024 Lipase [Catalytic activity/Vol] 19 U/L 13 - 60 U/L [facility] Lipase [Catalytic activity/Vol] 19 U/L Normal 13-60 [facility] Comment on above: Performed By: #### B MP, LIVP, LIP #### [facility] [address] [place] [address] Black Leather Trimmer: Ion Jasso MD No Panel Informationon 11-09 [facility] CBC auto differentialon Basophils (Bld) [#/Vol] 0.04 10*3/uL [facility] Basophils/100 WBC (Bld) 1 % 0 - 2 % [facility] Eosinophils (Bld) [#/Vol] 0.13 10*3/uL [facility] Eosinophils/100 WBC (Bld) 2 % 1 - 4 % [facility] Erythrocyte distribution width (RBC) [Ratio] 12.5 % 11.8 - 14.4 % [facility] Hematocrit (Bld) [Volume fraction] 35.6 % Low 36.3 - 47.1 % [facility] Hemoglobin (Bld) [Mass/Vol] 11.9 g/dL 11.9 - 15.1 g/dL [facility] Immature granulocytes (Bld) [#/Vol] [facility] Immature granulocytes/100 WBC (Bld) 0 % 0 [facility] Interpretation and review of laboratory results Abnormal [facility] Lymphocytes/100 WBC (Bld) 29 % 24 - 43 % [facility] Lymphocytes/100 WBC (Bld) 1.70 % [facility] MCH (RBC) [Entitic mass] 33.0 pg 25.2 - 33.5 pg [facility] MCHC (RBC) [Mass/Vol] 33.4 g/dL 28.4 - 34.8 g/dL [facility] MCV (RBC) [Entitic vol] 98.6 fL 82.6 - 102.9 fL [facility] Monocytes/100 WBC (Bld) 17 % High 3 - 12 % [facility] Monocytes/100 WBC (Bld) 1.00 % [facility] Neutrophils/100 WBC (Bld) 51 % 36 - 65 % [facility] Nucleated RBC/100 WBC (Bld) [Ratio] 0.0 % 0.0 per 100 WBC [facility] Platelet mean volume (Bld) [Entitic vol] 9.8 fL 8.1 - 13.5 fL [facility] Platelets (Bld) [#/Vol] 153 10*3/uL [facility] RBC (Bld) [#/Vol] 3.61 10*6/uL Low 3.95 - 5.11 m/uL [facility] Segmented neutrophils/100 WBC (Bld) 2.91 % [facility] WBC other (Bld) [#/Vol] 5.8 [facility] CBC with Diffon 11-08-2024 Abs. Basophil 0.04 k/uL Normal 0.00-0.20 [facility] Comment on above: Performed By: #### B MP, LIVP, LIP #### [facility] [address] [place] [address] Black Leather Trimmer: Ion Jasso MD Abs.Imm.Granulocyte <0.03 Normal 0.00-0.30 [facility] Comment on above: Performed By: #### B MP, LIVP, LIP #### [address] [place] [address] Black Leather Trimmer: Ion Jasso MD Abs.Neutrophil (Seg) 2.91 k/uL Normal 1.50-8.10 [facility] Comment on above: Performed By: #### B MP, LIVP, LIP #### [address] [place], [place] [address] Black Leather Trimmer: Ion Jasso MD Basophils/100 WBC (Bld) 1 % Normal 0-2 [facility] Comment on above: Performed By: #### B MP, LIVP, LIP #### [address] [place] [address] Black Leather Trimmer: Ion Jasso MD Eosinophils (Bld) [#/Vol] 0.13 10*3/uL Normal 0.00-0.44 [facility] Comment on above: Performed By: #### B MP, LIVP, LIP #### [address] [place] [address] Black Leather Trimmer: Ion Jasso MD Eosinophils/100 WBC (Bld) 2 % Normal 1-4 [facility] Comment on above: Performed By: #### B MP, LIVP, LIP #### [facility] [address] [place], [place] [id number] Black Leather Trimmer: Ion Jasso MD Erythrocyte distribution width (RBC) [Ratio] 12.5 % Normal 11.8-14.4 [facility] Comment on above: Performed By: #### B MP, LIVP, LIP #### [facility] [address] [place], [place] [phone] Black Leather Trimmer: Ion Jasso MD Hematocrit (Bld) [Volume fraction] 35.6 % Low 36.3-47.1 [facility] Comment on above: Performed By: #### B MP, LIVP, LIP #### [address] [place], [place] [phone] Black Leather Trimmer: Ion Jasso MD Hemoglobin (Bld) [Mass/Vol] 11.9 g/dL Normal 11.9-15.1 [facility] Comment on above: Performed By: #### B MP, LIVP, LIP #### [address] [place], [facility] Black Leather Trimmer: Ion Jasso MD Immature granulocytes/100 WBC (Bld) 0 % Normal 0 [facility] Comment on above: Performed By: #### B MP, LIVP, LIP #### [address] [place], [facility] Black Leather Trimmer: Ion Jasso MD Lymphocytes (Bld) [#/Vol] 1.70 10*3/uL Normal 1.10-3.70 [facility] Comment on above: Performed By: #### B MP, LIVP, LIP #### [address] [place], [place] 0105983 Black Leather Trimmer: Ion Jasso MD Lymphocytes/100 WBC (Bld) 29 % Normal 24-43 [facility] Comment on above: Performed By: #### B MP, LIVP, LIP #### [address] [place] [phone] Black Leather Trimmer: Ion Jasso MD MCH (RBC) [Entitic mass] 33.0 pg Normal 25.2-33.5 [facility] Comment on above: Performed By: #### B MP, LIVP, LIP #### [facility] [address] [place] [address] Dr. [place] [facility] Black Leather Trimmer: Ion Jasso MD MCHC (RBC) [Mass/Vol] 33.4 g/dL Normal 28.4-34.8 [facility] Comment on above: Performed By: #### B MP, LIVP, LIP #### [address] [place], [facility] Black Leather Trimmer: Ion Jasso MD MCV (RBC) [Entitic vol] 98.6 fL Normal 82.6-102.9 [facility] Comment on above: Performed By: #### B MP, LIVP, LIP #### [address] [place], [facility] Black Leather Trimmer: Ion Jasso MD Monocytes (Bld) [#/Vol] 1.00 10*3/uL Normal 0.10-1.20 [facility] Comment on above: Performed By: #### B MP, LIVP, LIP #### [address] [place], [facility] Black Leather Trimmer: Ion Jasso MD Monocytes/100 WBC (Bld) 17 % High 3-12 [facility] Comment on above: Performed By: #### B MP, LIVP, LIP #### [address] [place], [facility] Black Leather Trimmer: Ion Jasso MD Neutrophil (Seg) 51 % Normal 36-65 [facility] Comment on above: Performed By: #### B MP, LIVP, LIP #### [address] [place] [address] Black Leather Trimmer: Ion Jasso MD NRBC Automated 0.0 per 100 WBC Normal 0.0 [facility] Comment on above: Performed By: #### B MP, LIVP, LIP #### [address] [place] [address] Black Leather Trimmer: Ion Jasso MD Platelet mean volume (Bld) [Entitic vol] 9.8 fL Normal 8.1-13.5 [facility] Comment on above: Performed By: #### B MP, LIVP, LIP #### [address] [place] [address] Black Leather Trimmer: Ion Jasso MD Platelets (Bld) [#/Vol] 153 10*3/uL Normal 138-453 [facility] Comment on above: Performed By: #### B MP, LIVP, LIP #### [address] [place] [address] Black Leather Trimmer: Ion Jasso MD RBC (Bld) [#/Vol] 3.61 10*6/uL Low 3.95-5.11 [facility] Comment on above: Performed By: #### B MP, LIVP, LIP #### [address] [place], [place] [phone] Black Leather Trimmer: Ion Jasso MD WBC (Bld) [#/Vol] 5.8 10*3/uL Normal 3.5-11.3 [facility] Comment on above: Performed By: #### B MP, LIVP, LIP #### [address] [place] [address] Black Leather Trimmer: Ion Jasso MD Comp Metabolic Pr/rfx MGon 0 11-08-2024 Albumin [Mass/Vol] 3.6 g/dL Normal 3.5-5.2 [facility] Comment on above: Performed By: #### B MP, LIVP, LIP #### [address] [place], [place] [phone] Black Leather Trimmer: Ion Jasso MD Albumin/Glob Ratio 1.7 Normal 1.0-2.5 [facility] Comment on above: Performed By: #### B MP, LIVP, LIP #### [address] [place], [place] 578[address]83 Black Leather Trimmer: Ion Jasso MD Alkaline Phos 203 U/L High 35-104 [facility] Comment on above: Performed By: #### B MP, LIVP, LIP #### [address] [place], [place] 9676583 [employer] Leather Trimmer: Ion Jasso MD ALT [Catalytic activity/Vol] 126 U/L High 10-35 [facility] Comment on above: Performed By: #### B MP, LIVP, LIP #### [facility] [address] [place] [address] Dr. [place], [place] 7190483 Black Leather Trimmer: Ion Jasso MD Anion gap [Moles/Vol] 11 mmol/L Normal 9-16 [facility] Comment on above: Performed By: #### B MP, LIVP, LIP #### [address] [place], [place] [phone] Black Leather Trimmer: Ion Jasso MD AST [Catalytic activity/Vol] 171 U/L High 10-35 [facility] Comment on above: Performed By: #### B MP, LIVP, LIP #### [facility] [address] [place] [address] Dr. [place], [place] [phone] Black Leather Trimmer: Ion Jasso MD Bilirubin [Mass/Vol] mg/dL Normal 0.00-1.20 [facility] Comment on above: Performed By: #### B MP, LIVP, LIP #### [facility] [address] [place] [address] Dr. [place], [place] [phone] Black Leather Trimmer: Ion Jasso MD BUN/CRE Ratio 5 Low 9-20 [facility] Comment on above: Performed By: #### B MP, LIVP, LIP #### [facility] [address] [place], [place] 3953683 Black Leather Trimmer: Ion Jasso MD Calcium [Mass/Vol] 9.0 mg/dL Normal 8.6-10.4 [facility] Comment on above: Performed By: #### B MP, LIVP, LIP #### [facility] [address] [place], [place] 1255783 Black Leather Trimmer: Ion Jasso MD Chloride [Moles/Vol] 107 mmol/L Normal 98-107 [facility] Comment on above: Performed By: #### B MP, LIVP, LIP #### [facility] [address] [place], [place] 3914983 Black Leather Trimmer: Ion Jasso MD CO2 [Moles/Vol] 21 mmol/L Normal 20-31 [facility] Comment on above: Performed By: #### B MP, LIVP, LIP #### [facility] [address] [place], [place] 1061983 Black Leather Trimmer: Ion Jasso MD Creatinine [Mass/Vol] 0.8 mg/dL Normal 0.50-0.90 [facility] Comment on above: Performed By: #### B MP, LIVP, LIP #### [facility] [address] [place], [place] 3373883 Black Leather Trimmer: Ion Jasso MD GFR/1.73 sq M.predicted among non-blacks MDRD (S/P/Bld) [Vol rate/Area] mL/min/{1.73_m2} Normal >60 [facility] Comment on above: Result Comment: These results [...] renal tubular secretion. Performed By: #### B LIZY LIVP, LIP #### [facility] [address] [place], [place] 7573683 Black Leather Trimmer: Ion Jasso MD Glucose [Mass/Vol] 96 mg/dL Normal 74-99 [facility] Comment on above: Performed By: #### B MP LIVP, LIP #### [facility] [address] [place], [place] [phone] Black Leather Trimmer: Ion Jasso MD Potassium [Moles/Vol] 4.2 mmol/L Normal 3.7-5.3 [facility] Comment on above: Performed By: #### B LIZY LIVP, LIP #### [address] [place], [place] 2560783 Black Leather Trimmer: Ion Jasso MD Protein [Mass/Vol] 5.6 g/dL Low 6.6-8.7 [facility] Comment on above: Performed By: #### B LIZY LIVP, LIP #### [address] [place], [place] 1535183 Black Leather Trimmer: Ion Jasso MD Sodium [Moles/Vol] 139 mmol/L Normal 136-145 [facility] Comment on above: Performed By: #### B LIZY LIVP, LIP #### [facility] [address] [place] [address] Dr. [place], [place] 8002383 Black Leather Trimmer: Ion Jasso MD Urea nitrogen [Mass/Vol] 4 mg/dL Low 6-20 [facility] Comment on above: Performed By: #### B MP LIVP, LIP #### [facility] [address] [place], [place] [phone] Black Leather Trimmer: Ion Jasso MD Comprehensive Metabolic Pane l w/ Reflex to MGon 11-08-2024 Albumin [Mass/Vol] 3.6 g/dL 3.5 - 5.2 g/dL [facility] Albumin/Globulin [Mass ratio] 1.7 {ratio} 1.0 - 2.5 [facility] ALP [Catalytic activity/Vol] 203 U/L High 35 - 104 U/L [facility] ALT [Catalytic activity/Vol] 126 U/L High 10 - 35 U/L [facility] Anion gap [Moles/Vol] 11 mmol/L 9 - 16 mmol/L [facility] AST [Catalytic activity/Vol] 171 U/L High 10 - 35 U/L [facility] Bilirubin [Mass/Vol] mg/dL 0.00 - 1.20 mg/dL [facility] Calcium [Mass/Vol] 9.0 mg/dL 8.6 - 10. 4 mg/dL [facility] Chloride [Moles/Vol] 107 mmol/L 98 - 10 7 mmol/L [facility] CO2 [Moles/Vol] 21 mmol/L 20 - 31 mmol/L [facility] Creatinine [Mass/Vol] 0.8 mg/dL 0.50 - 0.90 mg/dL [facility] Est, Glom Filt Rate - PINF [facility] Comment on above: These results are not [...] 96 mg/dL 74 - 99 mg/dL [facility] Interpretation and review of laboratory results Abnormal [facility] Potassium [Moles/Vol] 4.2 mmol/L 3.7 - 5.3 mmol/L [facility] Protein [Mass/Vol] 5.6 g/dL Low 6.6 - 8.7 g/dL [facility] Sodium [Moles/Vol] 139 mmol/L 136 - 145 mmol/L [facility] Urea nitrogen [Mass/Vol] 4 mg/dL Low 6 - 20 mg/dL [facility]. Urea nitrogen/Creatinine [Mass ratio] 5 mg/mg Low 9 - 20 [facility] 12 leadOrdered By: Brandon Cespedes on 11-08-2024 Atrial Rate 78 BPM [facility]. Work Phone: P Kiron 54 degrees [facility]B. Work Phone: P-R Interval 136 ms [facility]. Work Phone: Q-T Interval 356 ms [facility]. Work Phone: QRS Duration 74 ms [facility]. Work Phone: QTc Calculation (Bazett) 405 ms U[facility]. Work Phone: R Kiron 30 degrees UB. Work Phone: T Kiron 40 degrees UB. Work Phone: Ventricular Rate 78 BPM [employer] Work Phone: UB. Work Phone: EKG 12 leadon 11-08-2024 Normal sinus rhythm Normal ECG When compared with ECG of 07-Jan-2024 14:42, No significant change was found Confirmed by Tri Cespedes ([id number]) on 11/08/2024 10:43:20 AM [facility] Tri Cespedes MD - 11/08/2024 Normal sinus rhythm Normal ECG When compared with ECG of 07-Jan-2024 14:42, No significant change was found Confirmed by Tri Cespedes ([id number]) on 11/08/2024 10:43:20 AM [facility] [employer] Lipaseon 11-08-2024 Lipase [Catalytic activity/Vol] 30 U/L 13 - 60 U/L [facility] [employer] Lipase [Catalytic activity/Vol] 30 U/L Normal 13-60 [facility] Comment on above: Performed By: #### B MP, LIVP, LIP #### [facility] [address] [place] [address] Black Leather Trimmer: Ion Jasso MD MR Abdomen WO and [...] status post cholecystectomy. 5. Prominent duodenal diverticula. [facility] EXAMINATION: MRI OF THE [...] provided for review. These images were reviewed. [facility] Alexi Olivo MD - 11/08/2024 EXAMINATION: MRI [...] status post cholecystectomy. 5. Prominent duodenal diverticula. [facility] Radiology Study observation (narrative) [facility] MR Abdomen WO and W contrast IVOrdered By: Alexi Olivo on 11-08-2024 [facility] Work Phone: MRI ABDOMEN W WO CONTRAST [...] Alexi Olivo MD 11/08/24 Final result Normal [facility] No Panel Informationon 11-08 [facility] CBC auto differentialon Basophils (Bld) [#/Vol] 0.04 10*3/uL [facility] Immature granulocytes (Bld) [#/Vol] [facility] Interpretation and review of laboratory results Abnormal [facility] Lymphocytes/100 WBC (Bld) 1.93 % [facility] Monocytes/100 WBC (Bld) 0.78 % [facility] Neutrophils/100 WBC (Bld) 59 % 36 - 65 % [facility] Nucleated RBC/100 WBC (Bld) [Ratio] 0.0 % 0.0 per 100 WBC [facility] Segmented neutrophils/100 WBC (Bld) 4.22 % [facility] WBC other (Bld) [#/Vol] 7.1 [facility] CBC with Diffon 11-07-2024 Abs. Basophil 0.04 k/uL Normal 0.00-0.20 [facility] Comment on above: Performed By: #### B MP, LIVP, LIP #### [address] [place] [id number] Black Leather Trimmer: Ion Jasso MD Abs.Imm.Granulocyte <0.03 Normal 0.00-0.30 [facility] Comment on above: Performed By: #### B MP, LIVP, LIP #### [address] [place], [place] [address] Black Leather Trimmer: Ion Jasso MD Abs.Neutrophil (Seg) 4.22 k/uL Normal 1.50-8.10 [facility] Comment on above: Performed By: #### B MP, LIVP, LIP #### [address] [place], [place] [address] Black Leather Trimmer: Ion Jasso MD Basophils/100 WBC (Bld) 1 % Normal 0-2 [facility] Comment on above: Performed By: #### B MP, LIVP, LIP #### [address] [place], [place] [address] Black Leather Trimmer: Ion Jasso MD Eosinophils (Bld) [#/Vol] 0.15 10*3/uL Normal 0.00-0.44 [facility] Comment on above: Performed By: #### B MP, LIVP, LIP #### [address] [place], [facility] Black Leather Trimmer: Ion Jasso MD Eosinophils/100 WBC (Bld) 2 % Normal 1-4 [facility] Comment on above: Performed By: #### B MP, LIVP, LIP #### [address] [place], [place] 4567383 Black Leather Trimmer: Ion Jasso MD Erythrocyte distribution width (RBC) [Ratio] 12.7 % Normal 11.8-14.4 [facility] Comment on above: Performed By: #### B MP, LIVP, LIP #### [address] [place] [address] Black Leather Trimmer: Ion Jasso MD Hematocrit (Bld) [Volume fraction] 39.3 % Normal 36.3-47.1 [facility] Comment on above: Performed By: #### B MP, LIVP, LIP #### [address] [place], [place] [address] Black Leather Trimmer: Ion Jasso MD Hemoglobin (Bld) [Mass/Vol] 12.9 g/dL Normal 11.9-15.1 [facility] Comment on above: Performed By: #### B MP, LIVP, LIP #### [address] [place], [place] 2435383 Black Leather Trimmer: Ion Jasso MD Immature granulocytes/100 WBC (Bld) 0 % Normal 0 [facility] Comment on above: Performed By: #### B MP, LIVP, LIP #### [address] [place] [address] Black Leather Trimmer: Ion Jasso MD Lymphocytes (Bld) [#/Vol] 1.93 10*3/uL Normal 1.10-3.70 [facility] Comment on above: Performed By: #### B MP, LIVP, LIP #### [address] [place], [place] 0203083 [employer] Leather Trimmer: Ion Jasso MD Lymphocytes/100 WBC (Bld) 27 % Normal 24-43 [facility] Comment on above: Performed By: #### B MP, LIVP, LIP #### [address] [place], [place] 7943383 [employer] Leather Trimmer: Ion Jasso MD MCH (RBC) [Entitic mass] 33.0 pg Normal 25.2-33.5 [facility] Comment on above: Performed By: #### B MP, LIVP, LIP #### [address] [place] [address] Black Leather Trimmer: Ion Jasso MD MCHC (RBC) [Mass/Vol] 32.8 g/dL Normal 28.4-34.8 [facility] Comment on above: Performed By: #### B MP, LIVP, LIP #### [address] [place], [facility] Black Leather Trimmer: Ion Jasso MD MCV (RBC) [Entitic vol] 100.5 fL Normal 82.6-102.9 [facility] Comment on above: Performed By: #### B MP, LIVP, LIP #### [address] [place], [place] 0335883 Black Leather Trimmer: Ion Jasso MD Monocytes (Bld) [#/Vol] 0.78 10*3/uL Normal 0.10-1.20 [facility] Comment on above: Performed By: #### B MP, LIVP, LIP #### [address] [place] [address] Black Leather Trimmer: Ion Jasso MD Monocytes/100 WBC (Bld) 11 % Normal 3-12 [facility] Comment on above: Performed By: #### B MP, LIVP, LIP #### [address] [place], [place] 8904283 Black Leather Trimmer: Ion Jasso MD Neutrophil (Seg) 59 % Normal 36-65 [facility] Comment on above: Performed By: #### B MP, LIVP, LIP #### [address] [place], [place] 6230383 Black Leather Trimmer: Ion Jasso MD NRBC Automated 0.0 per 100 WBC Normal 0.0 [facility] Comment on above: Performed By: #### B MP, LIVP, LIP #### [facility] [address] [place], [place] [phone] Black Leather Trimmer: Ion Jasso MD Platelet mean volume (Bld) [Entitic vol] 10.4 fL Normal 8.1-13.5 [facility] Comment on above: Performed By: #### B MP, LIVP, LIP #### [address] [place], [place] 1641783 [employer] Leather Trimmer: Ion Jasso MD Platelets (Bld) [#/Vol] 177 10*3/uL Normal 138-453 [facility] Comment on above: Performed By: #### B MP, LIVP, LIP #### [address] [place] [address] Black Leather Trimmer: Ion Jasso MD RBC (Bld) [#/Vol] 3.91 10*6/uL Low 3.95-5.11 [facility] Comment on above: Performed By: #### B MP, LIVP, LIP #### [address] [place], [place] 9843783 [employer] Leather Trimmer: Ion Jasso MD WBC (Bld) [#/Vol] 7.1 10*3/uL Normal 3.5-11.3 [facility] Comment on above: Performed By: #### B MP, LIVP, LIP #### [address] [place] [address] Black Leather Trimmer: Ion Jasso MD Comp Metabolic Pr/rfx MGon 0 9-01-2025 Albumin [Mass/Vol] 3.9 g/dL Normal 3.5-5.2 [facility] Comment on above: Performed By: #### B MP, LIVP, LIP #### [facility] [address] [place], [place] [phone] Black Leather Trimmer: Ion Jasso MD Albumin/Glob Ratio 1.7 Normal 1.0-2.5 [facility] Comment on above: Performed By: #### B MP, LIVP, LIP #### [facility] [address] [place], [place] [phone] Black Leather Trimmer: Ion Jasso MD Alkaline Phos 143 U/L High 35-104 [facility] Comment on above: Performed By: #### B MP, LIVP, LIP #### [facility] [address] [place], [place] 9680583 [employer] Leather Trimmer: Ion Jasso MD ALT [Catalytic activity/Vol] 42 U/L High 10-35 [facility] Comment on above: Performed By: #### B MP, LIVP, LIP #### [address] [place], [place] 8513783 [employer] Leather Trimmer: Ion Jasso MD Anion gap [Moles/Vol] 10 mmol/L Normal 9-16 [facility] Comment on above: Performed By: #### B MP, LIVP, LIP #### [facility] [address] [place], [place] 4980783 Black Leather Trimmer: Ion Jasso MD AST [Catalytic activity/Vol] 145 U/L High 10-35 [facility] Comment on above: Performed By: #### B MP, LIVP, LIP #### [facility] [address] [place] [address] Black Leather Trimmer: Ion Jasso MD Bilirubin [Mass/Vol] 0.3 mg/dL Normal 0.00-1.20 [facility] Comment on above: Performed By: #### B MP, LIVP, LIP #### [facility] [address] [place], [place] 6997783 [employer] Le[employer] Trimmer: Ion Jasso MD BUN/CRE Ratio 8 Low 9-20 [facility] Comment on above: Performed By: #### B MP, LIVP, LIP #### [facility] [address] [place], [place] 1795483 [employer] Leather Trimmer: Ion Jasso MD Calcium [Mass/Vol] 9.1 mg/dL Normal 8.6-10.4 [facility] Comment on above: Performed By: #### B MP, LIVP, LIP #### [facility] [address] [place], [place] 4629783 Black Leather Trimmer: Ion Jasso MD Chloride [Moles/Vol] 106 mmol/L Normal 98-107 [facility] Comment on above: Performed By: #### B MP, LIVP, LIP #### [facility] [address] [place], [place] 4705183 Black Leather Trimmer: Ion Jasso MD CO2 [Moles/Vol] 23 mmol/L Normal 20-31 [facility] Comment on above: Performed By: #### B MP, LIVP, LIP #### [facility] [address] [place], [place] 6843083 [employer] Leather Trimmer: Ion Jasso MD Creatinine [Mass/Vol] 0.8 mg/dL Normal 0.50-0.90 [facility] Comment on above: Performed By: #### B MP, LIVP, LIP #### [facility] [address] [place], [place] 3688583 [employer] Le[employer] Trimmer: Ion Jasso MD GFR/1.73 sq M.predicted among non-blacks MDRD (S/P/Bld) [Vol rate/Area] mL/min/{1.73_m2} Normal >60 [facility] Comment on above: Result Comment: These results [...] By: #### B MP, LIVP, LIP #### [facility] [address] [place] [address] [employer] Leather Trimmer: Ion Jasso MD Glucose [Mass/Vol] 92 mg/dL Normal 74-99 [facility] Comment on above: Performed By: #### B MP, LIVP, LIP #### [address] [place], [place] 1118283 [employer] Le[employer] Trimmer: Ion Jasso MD Potassium [Moles/Vol] 4.5 mmol/L Normal 3.7-5.3 [facility] Comment on above: Performed By: #### B MP LIVP, LIP #### [address] [place], [place] 9534483 Black Leather Trimmer: Ion Jasso MD Protein [Mass/Vol] 6.1 g/dL Low 6.6-8.7 [facility] Comment on above: Performed By: #### B MP LIVP, LIP #### [facility] [address] [place] [address] Dr. [place], [place] [phone] [employer] Le[employer]immer: Ion Jasso MD Sodium [Moles/Vol] 139 mmol/L Normal 136-145 [facility] Comment on above: Performed By: #### B MP, LIVP, LIP #### [address] [place] [address] Black Leather Trimmer: Ion Jasso MD Urea nitrogen [Mass/Vol] 6 mg/dL Normal 6-20 [facility] Comment on above: Performed By: #### B MP, LIVP, LIP #### [facility] [address] [place] [address] Black Leather Trimmer: Ion Jasso MD Comprehensive Metabolic Pane l w/ Reflex to on 11-07-2024 Albumin [Mass/Vol] 3.9 g/dL 3.5 - 5.2 g/dL [facility] Albumin/Globulin [Mass ratio] 1.7 {ratio} 1.0 - 2.5 [facility] ALP [Catalytic activity/Vol] 143 U/L High 35 - 104 U/L [facility] ALT [Catalytic activity/Vol] 42 U/L High 10 - 35 U/L [facility] Anion gap [Moles/Vol] 10 mmol/L 9 - 16 mmol/L [facility] AST [Catalytic activity/Vol] 145 U/L High 10 - 35 U/L [facility] Bilirubin [Mass/Vol] 0.3 mg/dL 0.00 - 1.20 mg/dL [facility] Calcium [Mass/Vol] 9.1 mg/dL 8.6 - 10. 4 mg/dL [facility] Chloride [Moles/Vol] 106 mmol/L 98 - 10 7 mmol/L [facility] CO2 [Moles/Vol] 23 mmol/L 20 - 31 mmol/L [facility] Creatinine [Mass/Vol] 0.8 mg/dL 0.50 - 0.90 mg/dL [facility] Est, Glom Filt Rate - PINF [facility] Comment on above: These results are not [...] [Mass/Vol] 92 mg/dL 74 - 99 mg/dL [facility] Potassium [Moles/Vol] 4.5 mmol/L 3.7 - 5.3 mmol/L [facility] Protein [Mass/Vol] 6.1 g/dL Low 6.6 - 8.7 g/dL [facility] Sodium [Moles/Vol] 139 mmol/L 136 - 145 mmol/L [facility] Urea nitrogen [Mass/Vol] 6 mg/dL 6 - 20 mg/dL [facility] Urea nitrogen/Creatinine [Mass ratio] 8 mg/mg Low 9 - 20 [facility] EKG Rhythm Stripon [facility] Lipaseon 11-07-2024 Lipase [Catalytic activity/Vol] 285 U/L High 13 - 60 U/L [facility] Lipase [Catalytic activity/Vol] 285 U/L High 13-60 [facility] Comment on above: Performed By: #### B MP, LIVP, LIP #### [facility] [address] [place] [address] Black Leather Trimmer: Ion Jasso MD No Panel Informationon 11-07 Interpretation and review of laboratory results Abnormal [facility] CBC with Auto Differentialon 11-06-2024 Basophils (Bld) [#/Vol] 0.08 10*3/uL [facility] Basophils/100 WBC (Bld) 1 % 0 - 2 % [facility] Eosinophils (Bld) [#/Vol] 0.10 10*3/uL [facility] Eosinophils/100 WBC (Bld) 1 % 1 - 4 % [facility] Erythrocyte distribution width (RBC) [Ratio] 12.2 % 11.8 - 14.4 % [facility] Hematocrit (Bld) [Volume fraction] 43.1 % 36.3 - 47.1 % [facility] Hemoglobin (Bld) [Mass/Vol] 14.5 g/dL 11.9 - 15.1 g/dL [facility] Immature granulocytes (Bld) [#/Vol] [facility] Immature granulocytes/100 WBC (Bld) 0 % 0 [facility] Interpretation and review of laboratory results Abnormal [facility] Lymphocytes/100 WBC (Bld) 21 % Low 24 - 43 % [facility] Lymphocytes/100 WBC (Bld) 1.66 % [facility] MCH (RBC) [Entitic mass] 32.9 pg 25.2 - 33.5 pg [facility] MCHC (RBC) [Mass/Vol] 33.6 g/dL 28.4 - 34.8 g/dL [facility] MCV (RBC) [Entitic vol] 97.7 fL 82.6 - 102.9 fL [facility] Monocytes/100 WBC (Bld) 12 % 3 - 12 % [facility] Monocytes/100 WBC (Bld) 0.96 % [facility] Neutrophils/100 WBC (Bld) 65 % 36 - 65 % [facility] Nucleated RBC/100 WBC (Bld) [Ratio] 0.0 % 0.0 per 100 WBC [facility] Platelet mean volume (Bld) [Entitic vol] 9.5 fL 8.1 - 13.5 fL [facility] Platelets (Bld) [#/Vol] 224 10*3/uL [facility] RBC (Bld) [#/Vol] 4.41 10*6/uL 3.95 - 5.11 m/uL [facility] Segmented neutrophils/100 WBC (Bld) 4.97 % [facility] WBC other (Bld) [#/Vol] 7.8 [facility] CBC with Diffon 11-06-2024 Abs. Basophil 0.08 k/uL Normal 0.00-0.20 [facility] Comment on above: Performed By: #### L TORIBIO, WALTER, CP #### [facility] [address] [place] [address] Black Leather Trimmer: Ion Jasso MD Abs.Imm.Granulocyte <0.03 Normal 0.00-0.30 [facility] Comment on above: Performed By: #### L IP, CDP, CP #### [facility] [address] [place] [address] Black Leather Trimmer: Ion Jasso MD Abs.Neutrophil (Seg) 4.97 k/uL Normal 1.50-8.10 [facility] Comment on above: Performed By: #### L IP CDP, CP #### [address] [place], [facility] Black Leather Trimmer: Ion Jasso MD Basophils/100 WBC (Bld) 1 % Normal 0-2 [facility] Comment on above: Performed By: #### L IP, CDP, CP #### [address] [place], [facility] Black Leather Trimmer: Ion Jasso MD Eosinophils (Bld) [#/Vol] 0.10 10*3/uL Normal 0.00-0.44 [facility] Comment on above: Performed By: #### L IP, CDP, CP #### [address] [place], [place] [address] Black Leather Trimmer: Ion Jasso MD Eosinophils/100 WBC (Bld) 1 % Normal 1-4 [facility] Comment on above: Performed By: #### L TORIBIO CDP, CP #### [address] [place], [facility] Black Leather Trimmer: Ion Jasso MD Erythrocyte distribution width (RBC) [Ratio] 12.2 % Normal 11.8-14.4 [facility] Comment on above: Performed By: #### L TORIBIO CDP, CP #### [address] [place], [facility] Black Leather Trimmer: Ion Jasso MD Hematocrit (Bld) [Volume fraction] 43.1 % Normal 36.3-47.1 [facility] Comment on above: Performed By: #### L IP, CDP, CP #### [address] [place], [facility] Black Leather Trimmer: Ion Jasso MD Hemoglobin (Bld) [Mass/Vol] 14.5 g/dL Normal 11.9-15.1 [facility] Comment on above: Performed By: #### L IP, CDP, CP #### [address] [place], [place] [address] Black Leather Trimmer: Ion Jasso MD Immature granulocytes/100 WBC (Bld) 0 % Normal 0 [facility] Comment on above: Performed By: #### L IP, CDP, CP #### [address] [place], [place] [address] Black Leather Trimmer: Ion Jasso MD Lymphocytes (Bld) [#/Vol] 1.66 10*3/uL Normal 1.10-3.70 [facility] Comment on above: Performed By: #### L IP, CDP, CP #### [address] [place] [address] Black Leather Trimmer: Ion Jasso MD Lymphocytes/100 WBC (Bld) 21 % Low 24-43 [facility] Comment on above: Performed By: #### L IP, CDP, CP #### [address] [place], [place] [address] Black Leather Trimmer: Ion Jasso MD MCH (RBC) [Entitic mass] 32.9 pg Normal 25.2-33.5 [facility] Comment on above: Performed By: #### L IP CDP, CP #### [address] [place], [facility] Black Leather Trimmer: Ion Jasso MD MCHC (RBC) [Mass/Vol] 33.6 g/dL Normal 28.4-34.8 [facility] Comment on above: Performed By: #### L IP, CDP, CP #### [address] [place] [address] Black Leather Trimmer: Ion Jasso MD MCV (RBC) [Entitic vol] 97.7 fL Normal 82.6-102.9 [facility] Comment on above: Performed By: #### L IP, CDP, CP #### [facility] [address] [place], [place] [id number] Black Leather Trimmer: Ion Jasso MD Monocytes (Bld) [#/Vol] 0.96 10*3/uL Normal 0.10-1.20 [facility] Comment on above: Performed By: #### L IP, CDP, CP #### [facility] [address] [place], [facility] Black Leather Trimmer: Ion Jasso MD Monocytes/100 WBC (Bld) 12 % Normal 3-12 [facility] Comment on above: Performed By: #### L IP, CDP, CP #### [address] [place], [facility] Black Leather Trimmer: Ion Jasso MD Neutrophil (Seg) 65 % Normal 36-65 [facility] Comment on above: Performed By: #### L IP, CDP, CP #### [address] [place], [facility] Black Leather Trimmer: Ion Jasso MD NRBC Automated 0.0 per 100 WBC Normal 0.0 [facility] Comment on above: Performed By: #### L IP, CDP, CP #### [address] [place], [facility] Black Leather Trimmer: Ion Jasso MD Platelet mean volume (Bld) [Entitic vol] 9.5 fL Normal 8.1-13.5 [facility] Comment on above: Performed By: #### L IP, CDP, CP #### [address] [place], [facility] Black Leather Trimmer: Ion Jasso MD Platelets (Bld) [#/Vol] 224 10*3/uL Normal 138-453 [facility] Comment on above: Performed By: #### L IP, CDP, CP #### [address] [place], [place] [id number] Black Leather Trimmer: Ion Jasso MD RBC (Bld) [#/Vol] 4.41 10*6/uL Normal 3.95-5.11 [facility] Comment on above: Performed By: #### L WALTER ROONEY, CP #### [facility] [address] [place] [address] Black Leather Trimmer: Ion Jasso MD WBC (Bld) [#/Vol] 7.8 10*3/uL Normal 3.5-11.3 [facility] Comment on above: Performed By: #### L WALTER ROONEY, CP #### [facility] [address] [place] [address] Black Leather Trimmer: Ion Jasso MD [facility] Albumin/Globulin [Mass ratio] 1.5 {ratio} 1.0 - 2.5 [facility] ALP [Catalytic activity/Vol] 145 U/L High 35 - 104 U/L [facility] Est, Glom Filt Rate 84 - PINF [facility] Comment on above: These results are not [...] ratio] 9 mg/mg 9 - 20 [facility] Comp Metabolic Profon 2024 Albumin [Mass/Vol] 4.4 g/dL Normal 3.5-5.2 [facility] Comment on above: Performed By: #### L WALTER ROONEY, CP #### [facility] [address] [place] [address] Black Leather Trimmer: Ion Jasso MD ALT [Catalytic activity/Vol] 13 U/L Normal 10-35 [facility] Comment on above: Performed By: #### L IP, CDP, CP #### [address] [place] [address] Black Leather Trimmer: Ion Jasso MD Anion gap [Moles/Vol] 12 mmol/L Normal 9-16 [facility] Comment on above: Performed By: #### L IP, CDP, CP #### [address] [place], [facility] Black Leather Trimmer: Ion Jasso MD AST [Catalytic activity/Vol] 26 U/L Normal 10-35 [facility] Comment on above: Performed By: #### L IP, CDP, CP #### [address] [place] [id number] Black Leather Trimmer: Ion Jasso MD Bilirubin [Mass/Vol] mg/dL Normal 0.00-1.20 [facility] Comment on above: Performed By: #### L IP, CDP, CP #### [address] [place], [facility] Black Leather Trimmer: Ion Jasso MD Calcium [Mass/Vol] 10.4 mg/dL Normal 8.6-10.4 [facility] Comment on above: Performed By: #### L IP, CDP, CP #### [address] [place], [facility] Black Leather Trimmer: Ion Jasso MD Chloride [Moles/Vol] 104 mmol/L Normal 98-107 [facility] Comment on above: Performed By: #### L IP, CDP, CP #### [address] [place] [address] Black Leather Trimmer: Ion Jasso MD CO2 [Moles/Vol] 24 mmol/L Normal 20-31 [facility] Comment on above: Performed By: #### L IP, CDP, CP #### [address] [place], [place] [address] Black Leather Trimmer: Ion Jasso MD Creatinine [Mass/Vol] 0.8 mg/dL Normal 0.50-0.90 [facility] Comment on above: Performed By: #### L IP, CDP, CP #### [address] [place], [place] [id number] Black Leather Trimmer: Ion Jasso MD Glucose [Mass/Vol] 97 mg/dL Normal 74-99 [facility] Comment on above: Performed By: #### L IP, CDP, CP #### [address] [place], [place] [address] Black Leather Trimmer: Ion Jasso MD Potassium [Moles/Vol] 3.7 mmol/L Normal 3.7-5.3 [facility] Comment on above: Performed By: #### L IP, CDP, CP #### [address] [place], [place] [id number] Black Leather Trimmer: Ion Jasso MD Protein [Mass/Vol] 7.3 g/dL Normal 6.6-8.7 [facility] Comment on above: Performed By: #### L IP, CDP, CP #### [address] [place], [place] [address] Black Leather Trimmer: Ion Jasso MD Sodium [Moles/Vol] 140 mmol/L Normal 136-145 [facility] Comment on above: Performed By: #### L IP, CDP, CP #### [address] [place] [address] Black Leather Trimmer: Ion Jasso MD Urea nitrogen [Mass/Vol] 7 mg/dL Normal 6-20 [facility] Comment on above: Performed By: #### L IP, CDP, CP #### [address] [place], [place] [address] Black Leather Trimmer: Ion Jasso MD Albumin/Glob Ratio 1.5 Normal 1.0-2.5 [facility] Comment on above: Performed By: #### L WALTER ROONEY, CP #### [facility] [address] [place], [place] [id number] Black Leather Trimmer: Ion Jasso MD Alkaline Phos 145 U/L High 35-104 [facility] Comment on above: Performed By: #### L TORIBIO, CDP, CP #### [facility] [address] [place], [place] [address] Black Leather Trimmer: Ion Jasos MD BUN/CRE Ratio 9 Normal 9-20 [facility] Comment on above: Performed By: #### L WALTER ROONEY, CP #### [facility] [address] [place] [address] Black Leather Trimmer: Ion Jasso MD GFR/1.73 sq M.predicted among non-blacks MDRD (S/P/Bld) [Vol rate/Area] 84 mL/min/{1.73_m2} Normal >60 [facility] Comment on above: Result Comment: These results [...] By: #### L WALTER ROONEY, CP #### [facility] [address] [place] [address] Black Leather Trimmer: Ion Jasso MD Lipaseon 11-06-2024 Lipase [Catalytic activity/Vol] 247 U/L High 13-60 [facility] Comment on above: Performed By: #### L WALTER ROONEY, CP #### [facility] [address] [place] [address] Black Leather Trimmer: Ion Jasso MD No Panel Informationon 11-06 Interpretation and review of laboratory results Abnormal [facility] Alanine aminotransferase [En zymatic activity/volume] in Serum or PlasmaOrdered By: Andrew Ponce on 10-28-2024 ALT [Catalytic activity/Vol] 10 U/L Normal 7-52 [facility] Comment on above: Performed By: #### C BC, LIPASE, BMP, HEPATIC #### [facility] [address] [place] [address] [place] Albumin [Mass/volume] in Ser um or Plasma by Bromocresol green (BCG) dye binding methoOrdered By: Andrew Ponce on 10-28-2024 Albumin BCG dye [Mass/Vol] 4.5 g/dL 3.5-5.7 [facility] Alkaline phosphatase [Enzyma tic activity/volume] in Serum or PlasmaOrdered By: nAdrew Ponce on 10-28-2024 ALP [Catalytic activity/Vol] 136 U/L High 34-104 [facility] Comment on above: Performed By: #### C BC, LIPASE, BMP, HEPATIC #### [facility] [address] Appearance of UrineOrdered B y: Andrew Ponce on 10-28-2024 Appearance (U) Clear Normal Clear [facility] Comment on above: Order Comment: Name Collection Type:: Voided Performed By: #### C BC, LIPASE, BMP, HEPATIC #### [facility] [address] [place] [address] [place] Aspartate aminotransferase [ Enzymatic activity/volume] in Serum or PlasmaOrdered By: Andrew Ponce on 10-28-2024 AST [Catalytic activity/Vol] 18 U/L Normal 13-39 [facility] Comment on above: Performed By: #### C BC, LIPASE, BMP, HEPATIC #### [facility] [address] [place] [address] [place] Bacteria [Presence] in Urine by AutomatedOrdered By: Andrew Ponce on 10-28-2024 Bacteria Auto Ql (U) Rare [HPF] None Seen [facility] Basic Metabolic Panelon 10-08 Creatinine Clr Calc Pharmacy 59.85 Normal [facility] Comment on above: Performed By: #### C BC, LIPASE, BMP, HEPATIC #### [facility] [address] GFR/1.73 sq M.predicted MDRD (S/P/Bld) [Vol rate/Area] mL/min/{1.73_m2} Normal [facility] Comment on above: Performed By: #### C BC, LIPASE, BMP, HEPATIC #### [facility] [address] Basophils [#/volume] in Bloo d by Automated countOrdered By: Andrew Ponce on 10-28-2024 Basophils (Bld) [#/Vol] 0.1 10*3/uL Normal 0.0-0.2 [facility] Comment on above: Result Comment: PERF ORMED BY: [place] [address] PATHOLOGIST VEHICLE WASHER TARA BENSON M.D. Performed By: #### C BC, LIPASE, BMP, HEPATIC #### [facility] [address] Basophils/100 leukocytes in Blood by Automated countOrdered By: Andrew Ponce on 10-28-2024 Basophils/100 WBC (Bld) 1.0 % Normal . [facility] Comment on above: Performed By: #### C BC, LIPASE, BMP, HEPATIC #### [address] Bilirubin Test strip Ql (U)O rdered By: Andrew Ponce on 10-28-2024 Bilirubin Ql (U) Negative Negative [facility] Bilirubin.direct [Mass/volum e] in Serum or PlasmaOrdered By: Andrew Ponce on 10-28-2024 Bilirubin.direct [Mass/Vol] 0.00 mg/dL Low 0.03-0.18 [facility] Comment on above: If the DBIL is less than 0.1, IBIL is not able to becalculated. Bilirubin.total [Mass/volume ] in Serum or PlasmaOrdered By: Andrew Ponce on 10-28-2024 Bilirubin [Mass/Vol] 0.3 mg/dL Normal 0.3-1.0 [facility] Comment on above: Performed By: #### C BC, LIPASE, BMP, HEPATIC #### [facility] [address] abdomen pelvis w conon CT abdomen pelvis w con [facility] [place] [address] [place] [address] CT Scan Report Signed Patient: Chioma Arciniega MR#: [id number] : 1970 Acct:[id number] Age/Sex: 54 / F ADM Date: 10/28/24 Loc: ER Room: Type: [facility] ER Attending Dr: Copies to: Andrew [...] Mendieta M.D. 10/28/2024 4:38 PM Dictation Location: [place] [address] Transcribed By: [facility] 10/28/24 1638 Dictated By: Cruzito Mendieta DO 10/28/24 1636 Signed By: 10/28/24 1638 Normal [facility] Calcium [Mass/volume] in Ser um or PlasmaOrdered By: Andrew Ponce on 10-28-2024 Calcium [Mass/Vol] 10.2 mg/dL Normal 8.6-10.3 [facility] Comment on above: Performed By: #### C BC, LIPASE, BMP, HEPATIC #### [facility] [address] [place] [address] Carbon dioxide, total [Moles /volume] in Serum or PlasmaOrdered By: Andrew Ponce on 10-28-2024 CO2 [Moles/Vol] 30.4 mmol/L Normal 21.0-31.0 [facility] Comment on above: Performed By: #### C BC, LIPASE, BMP, HEPATIC #### [address] Chloride [Moles/volume] in S erika or PlasmaOrdered By: Andrew Ponce on 10-28-2024 Chloride [Moles/Vol] 104 mmol/L Normal 98-107 [facility] Comment on above: Performed By: #### C BC, LIPASE, BMP, HEPATIC #### [address] Color of Urine by AutoOrdere d By: Andrew Ponce on 10-28-2024 Color (U) Light-yellow Normal Yellow [facility] Comment on above: Order Comment: Name Collection Type:: Voided Performed By: #### C BC, LIPASE, BMP, HEPATIC #### [address] Complete Blood Count Auto Di ffon 10-28-2024 Mean Corpuscular HGB Conc 34.3 g/dL Normal 32.0-35.0 [facility] Comment on above: Performed By: #### C BC, LIPASE, BMP, HEPATIC #### [place] [address] [place] Monocytes/100 WBC (Bld) 19.51 % Normal 0.00-20.00 [facility] Comment on above: Performed By: #### C BC, LIPASE, BMP, HEPATIC #### [place] [address] [place] NRBC% 0.0 /100{WBC} Normal 0-0.5 [facility] Comment on above: Performed By: #### C BC, LIPASE, BMP, HEPATIC #### [address] White Blood Count 8.6 [CFU]/mL Normal 3.8-11.6 [facility] Comment on above: Performed By: #### C BC, LIPASE, BMP, HEPATIC #### [address] Creatinine [Mass/volume] in Serum or PlasmaOrdered By: Andrew Ponce on 10-28-2024 Creatinine [Mass/Vol] 0.84 mg/dL Normal 0.60-1.20 [facility] Comment on above: Performed By: #### C BC, LIPASE, BMP, HEPATIC #### [address] Dipstick and Microscopicon 0 10-28-2024 Bacteria,Urine Rare Normal None Seen [facility] Comment on above: Order Comment: Name Collection Type:: Voided Performed By: #### C BC, LIPASE, BMP, HEPATIC #### [address] Bilirubin,Urine Negative Normal Negative [facility] Comment on above: Order Comment: Name Collection Type:: Voided Performed By: #### C BC, LIPASE, BMP, HEPATIC #### [address] Glucose Ql (U) Normal Normal Normal [facility] Comment on above: Order Comment: Name Collection Type:: Voided Performed By: #### C BC, LIPASE, BMP, HEPATIC #### [address] Hyaline Casts,Urine None Normal 0-8 [facility] Comment on above: Order Comment: Name Collection Type:: Voided Performed By: #### C BC, LIPASE, BMP, HEPATIC #### [address] Mucus,Urine Rare Normal [facility] Comment on above: Order Comment: Name Collection Type:: Voided Result Comment: PERF ORMED BY: [place] [address] PATHOLOGIST VEHICLE WASHER TARA BENSON M.D. Performed By: #### C BC, LIPASE, BMP, HEPATIC #### [address] Nitrite,Urine Negative Normal Negative [facility] Comment on above: Order Comment: Name Collection Type:: Voided Performed By: #### C BC, LIPASE, BMP, HEPATIC #### [address] Occult Blood,Urine 1+ Normal Negative [facility] Comment on above: Order Comment: Name Collection Type:: Voided Result Comment: PERF ORMED BY: [place] [address] PATHOLOGIST VEHICLE WASHER TARA BENSON M.D. Performed By: #### C BC, LIPASE, BMP, HEPATIC #### [address] Protein,Urine Negative Normal Negative [facility] Comment on above: Order Comment: Name Collection Type:: Voided Performed By: #### C BC, LIPASE, BMP, HEPATIC #### [address] RBC,Urine 1-2 Normal 0-4 [facility] Comment on above: Order Comment: Name Collection Type:: Voided Performed By: #### C BC, LIPASE, BMP, HEPATIC #### [address] Specificy [place],Urine 1.017 Normal 1.001-1.03 0 [facility] Comment on above: Order Comment: Name Collection Type:: Voided Performed By: #### C BC, LIPASE, BMP, HEPATIC #### [address] Squamous Epithelial Cell,Urine 1-2 Normal 0-2 [facility] Comment on above: Order Comment: Name Collection Type:: Voided Performed By: #### C BC, LIPASE, BMP, HEPATIC #### [facility] [address] [place] [address] [place] Urobilinogen,Urine Normal Normal Normal [facility] Comment on above: Order Comment: Name Collection Type:: Voided Performed By: #### C BC, LIPASE, BMP, HEPATIC #### [facility] [address] [place] [address] [place] WBC,Urine 1-2 Normal 0-4 [facility] Comment on above: Order Comment: Name Collection Type:: Voided Performed By: #### C BC, LIPASE, BMP, HEPATIC #### [facility] [address] [place] [address] [place] Eosinophils [#/volume] in Bl ood by Automated countOrdered By: Andrew Ponce on 10-28-2024 Eosinophils (Bld) [#/Vol] 0.1 10*3/uL Normal 0.0-0.45 [facility] Comment on above: Performed By: #### C BC, LIPASE, BMP, HEPATIC #### [place] [address] [place] Eosinophils/100 leukocytes i n Blood by Automated countOrdered By: Andrew Ponce on 10-28-2024 Eosinophils/100 WBC (Bld) 1.5 % Normal . [facility] Comment on above: Performed By: #### C BC, LIPASE, BMP, HEPATIC #### [address] Epithelial cells.squamous [# /area] in Urine sediment by Automated countOrdered By: Andrew Ponce on 10-28-2024 Epithelial cells.squamous Auto (Urine sed) [#/Area] 1-2 [HPF] 0-2 [facility] Erythrocyte distribution wid th [Ratio] by Automated countOrdered By: Andrew Pnoce on 10-28-2024 Erythrocyte distribution width (RBC) [Ratio] 13.6 % Normal 11.9-15.3 [facility] Comment on above: Performed By: #### C BC, LIPASE, BMP, HEPATIC #### [place] [address] [place] Erythrocytes [#/area] in Uri ne sediment by Automated countOrdered By: Andrew Ponce on 10-28-2024 RBC Auto (Urine sed) [#/Area] 1-2 [HPF] 0-4 [facility] Erythrocytes [#/volume] in B lood by Automated countOrdered By: Andrew Ponce on 10-28-2024 RBC (Bld) [#/Vol] 4.30 10*6/uL Normal 3.60-5.00 [facility] Comment on above: Performed By: #### C BC, LIPASE, BMP, HEPATIC #### [address] Glomerular filtration rate [ Volume Rate/Area] in Serum, Plasma or Blood by CreatinineOrdered By: Andrew Ponce on 10-28-2024 Glomerular filtration rate [Volume Rate/Area] in Serum, Plasma or Blood by Creatinine > 60.0 mL/Min [facility] Glucose [Mass/volume] in Ser um or PlasmaOrdered By: Andrew Ponce on 10-28-2024 Glucose [Mass/Vol] 95 mg/dL Normal 70-100 [facility] Comment on above: ADA recommended refe rence rangeRandom Glucose Reference Range is dependent on time and content of last meal. Glucose of more than 200 mg/dL in a nonstressed, ambulatory subject supports the diagnosis of Diabetes Mellitus. Result Comment: [place] Glucose Reference Range is dependent on time and content of last meal. Glucose of more than 200 mg/dL in a nonstressed, ambulatory subject supports the diagnosis of Diabetes Mellitus. ADA recommended reference range Performed By: #### C BC, LIPASE, BMP, HEPATIC #### [facility] [address] [id number] [facility] Glucose [Mass/volume] in Uri ne by Test stripOrdered By: Andrew Ponce on 10-28-2024 Glucose Test strip (U) [Mass/Vol] Normal mg/dL Normal [facility] Hematocrit [Volume Fraction] of Blood by Automated countOrdered By: Andrew Ponce on 10-28-2024 Hematocrit (Bld) [Volume fraction] 42.2 % Normal 34.0-46.4 [facility] Comment on above: Performed By: #### C BC, LIPASE, BMP, HEPATIC #### [facility] [address] Hemoglobin Test strip Ql (U) Ordered By: Andrew Ponce on 10-28-2024 Hemoglobin Ql (U) 1+ High Negative [facility] Hemoglobin [Mass/volume] in BloodOrdered By: Andrew Ponce on 10-28-2024 Hemoglobin (Bld) [Mass/Vol] 14.5 g/dL Normal 11.8-15.4 [facility] Comment on above: Performed By: #### C BC, LIPASE, BMP, HEPATIC #### [facility] [address] Hepatic Panelon 10-28-2024 Albumin [Mass/Vol] 4.5 g/dL Normal 3.5-5.7 [facility] Comment on above: Performed By: #### C BC, LIPASE, BMP, HEPATIC #### [address] Bilirubin,Indirect 0.3 mg/dL Normal [facility] Comment on above: Performed By: #### C BC, LIPASE, BMP, HEPATIC #### [address] Bilirubin.indirect [Mass/Vol] 0.00 mg/dL Low 0.03-0.18 [facility] Comment on above: Result Comment: If t he DBIL is less than 0.1, IBIL is not able to be calculated. Performed By: #### C BC, LIPASE, BMP, HEPATIC #### [address] Hyaline casts [#/area] in Ur ine sediment by Automated countOrdered By: Andrew Ponce on 10-28-2024 Hyaline casts Auto (Urine sed) [#/Area] None [LPF] 0-8 [facility] Ketones [Presence] in Urine by Test stripOrdered By: Andrew Ponce on 10-28-2024 Ketones Ql (U) Negative Normal Negative [facility] Comment on above: Order Comment: Name Collection Type:: Voided Performed By: #### C BC, LIPASE, BMP, HEPATIC #### [facility] [address] [place] [address] [place] Leukocyte esterase [Presence ] in Urine by Test stripOrdered By: Andrew Ponce on 10-28-2024 Leukocyte esterase Test strip Ql (U) Negative Normal Negative [facility] Comment on above: Order Comment: Name Collection Type:: Voided Performed By: #### C BC, LIPASE, BMP, HEPATIC #### [facility] [address] [place] [address] [place] Leukocytes [#/area] in Urine sediment by Automated countOrdered By: Andrew Ponce on 10-28-2024 WBC Auto (Urine sed) [#/Area] 1-2 [HPF] 0-4 [facility] Leukocytes [#/volume] correc aurelia for nucleated erythrocytes in Blood by Automated counOrdered By: Andrew Ponce on 10-28-2024 WBC corrected for nucl RBC Auto (Bld) [#/Vol] 8.6 10*3/uL 3.8-11.6 [facility] Leukocytes [#/volume] in Blo od by Automated countOrdered By: Andrew Ponce on 10-28-2024 WBC (Bld) [#/Vol] 8.6 10*3/uL Normal 3.8-11.6 [facility] Comment on above: Performed By: #### C BC, LIPASE, BMP, HEPATIC #### [facility] [address] [place] [address] [place] Lipase [Enzymatic activity/v olume] in Serum or PlasmaOrdered By: Andrew Ponce on 10-28-2024 Lipase [Catalytic activity/Vol] 140.0 U/L High 11.0-82.0 [facility] Comment on above: Result Comment: PERF ORMED BY: [facility] [address] [place] [address] PATHOLOGIST VEHICLE WASHER TARA BENSON M.D. Performed By: #### C BC, LIPASE, BMP, HEPATIC #### [facility] [address] [place] [address] [place] Lymphocytes [#/volume] in Bl ood by Automated countOrdered By: Andrew Ponce on 10-28-2024 Lymphocytes (Bld) [#/Vol] 2.5 10*3/uL Normal 1.00-4.8 [facility] Comment on above: Performed By: #### C BC, LIPASE, BMP, HEPATIC #### [address] Lymphocytes/100 leukocytes i n Blood by Automated countOrdered By: Andrew Ponce on 10-28-2024 Lymphocytes/100 WBC (Bld) 28.8 % Normal . [facility] Comment on above: Performed By: #### C BC, LIPASE, BMP, HEPATIC #### [address] MCH [Entitic mass] by Automa aurelia countOrdered By: Andrew Ponce on 10-28-2024 MCH (RBC) [Entitic mass] 33.7 pg Normal 24.7-34.3 [facility] Comment on above: Performed By: #### C BC, LIPASE, BMP, HEPATIC #### [address] MCHC Auto (RBC) [Mass/Vol]Or dered By: Andrew Ponce on 10-28-2024 MCHC (RBC) [Mass/Vol] 34.3 g/dL 32.0-35.0 [facility] MCV [Entitic volume] by Auto mated countOrdered By: Andrew Ponce on 10-28-2024 MCV (RBC) [Entitic vol] 98.2 fL Normal 80-100 [facility] Comment on above: Performed By: #### C BC, LIPASE, BMP, HEPATIC #### [address] Monocyte distribution width [Entitic volume] in Blood by AutomatedOrdered By: Andrew Ponce on 10-28-2024 Monocyte distribution width Auto (Bld) [Entitic vol] 19.51 % 0.00-20.00 [facility] Monocytes [#/volume] in Bloo d by Automated countOrdered By: Andrew Ponce on 10-28-2024 Monocytes (Bld) [#/Vol] 0.8 10*3/uL Normal 0.0-0.8 [facility] Comment on above: Performed By: #### C BC, LIPASE, BMP, HEPATIC #### [facility] [address] [place] [address] [place] Monocytes/100 leukocytes in Blood by Automated countOrdered By: Andrew Ponce on 10-28-2024 Monocytes/100 WBC (Bld) 9.4 % Normal . [facility] Comment on above: Performed By: #### C BC, LIPASE, BMP, HEPATIC #### [facility] [address] Mucus [Presence] in Urine by AutomatedOrdered By: Anrdew Ponce on 10-28-2024 Mucus Auto Ql (U) Rare [LPF] [facility] Neutrophils [#/volume] in Bl ood by Automated countOrdered By: Andrew Ponce on 10-28-2024 Neutrophils (Bld) [#/Vol] 5.1 10*3/uL Normal 1.8-7.7 [facility] Comment on above: Performed By: #### C BC, LIPASE, BMP, HEPATIC #### [facility] [address] [place] [address] Neutrophils/100 leukocytes i n Blood by Automated countOrdered By: Andrew Ponce on 10-28-2024 Neutrophils/100 WBC (Bld) 59.3 % Normal . [facility] Comment on above: Performed By: #### C BC, LIPASE, BMP, HEPATIC #### [facility] [address] [place] [address] Nitrite Test strip Ql (U)Ord ered By: Andrwe Ponce on 10-28-2024 Nitrite Ql (U) Negative Negative [facility] No Panel InformationOrdered By: Andrew Ponce on 10-28-2024 Pharmacy Creatinine Clearance (Chem 59.85 [facility] Nucleated erythrocytes [Pres ence] in Blood by Automated countOrdered By: Andrew Ponce on 10-28-2024 Nucleated RBC Auto Ql (Bld) 0.0 /100{WBC} 0-0.5 [facility] Platelet mean volume [Entiti c volume] in Blood by Automated countOrdered By: Andrew Ponce on 10-28-2024 Platelet mean volume (Bld) [Entitic vol] 8.0 fL Normal 6.3-10.7 [facility] Comment on above: Performed By: #### C BC, LIPASE, BMP, HEPATIC #### [facility] [address] Platelets [#/volume] in Bloo d by Automated countOrdered By: Andrew Ponce on 10-28-2024 Platelets (Bld) [#/Vol] 258 10*3/uL Normal 150-450 [facility] Comment on above: Performed By: #### C BC, LIPASE, BMP, HEPATIC #### [facility] [address] Potassium [Moles/volume] in Serum or PlasmaOrdered By: Andrew Ponce on 10-28-2024 Potassium [Moles/Vol] 3.7 mmol/L Normal 3.5-5.1 [facility] Comment on above: Performed By: #### C BC, LIPASE, BMP, HEPATIC #### [address] Protein Test strip (U) [Mass /Vol]Ordered By: Andrew Ponce on 10-28-2024 Protein (U) [Mass/Vol] Negative Negative [facility] Protein [Mass/volume] in Ser um or PlasmaOrdered By: Andrew Ponce on 10-28-2024 Protein [Mass/Vol] 7.3 g/dL Normal 6.4-8.9 [facility] Comment on above: Performed By: #### C BC, LIPASE, BMP, HEPATIC #### [facility] [address] [place] [address] Serum globulin measurement b y calculation (mass/volume)Ordered By: Andrew Ponce on 10-28-2024 Globulin (S) [Mass/Vol] 2.8 g/dL [facility] Comment on above: Performed By: #### C BC, LIPASE, BMP, HEPATIC #### [facility] [address] Serum or plasma albumin/glob ulin mass ratioOrdered By: Andrew Ponce on 10-28-2024 Albumin/Globulin [Mass ratio] 1.6 {ratio} [facility] Comment on above: Performed By: #### C BC, LIPASE, BMP, HEPATIC #### [address] Serum or plasma anion gap de terminationOrdered By: Andrew Ponce on 10-28-2024 Anion gap [Moles/Vol] 8.3 mmol/L Normal 6.0-15.0 [facility] Comment on above: Performed By: #### C BC, LIPASE, BMP, HEPATIC #### [address] Serum or plasma non-glucuron idated bilirubin measurement (mass/volume)Ordered By: Andrew Ponce on 10-28-2024 Bilirubin.indirect [Mass/Vol] 0.3 mg/dL [facility] Sodium [Moles/volume] in Ser um or PlasmaOrdered By: Andrew Ponce on 10-28-2024 Sodium [Moles/Vol] 139 mmol/L Normal 136-145 [facility] Comment on above: Performed By: #### C BC, LIPASE, BMP, HEPATIC #### [address] Specific gravity Test strip (U) [Rel density]Ordered By: Andrew Ponce on 10-28-2024 Specific gravity (U) [Rel density] 1.017 1.001-1.03 0 [facility] Urea nitrogen [Mass/volume] in Serum or PlasmaOrdered By: Andrew Ponce on 10-28-2024 Urea nitrogen [Mass/Vol] 10 mg/dL Normal 7-25 [facility] Comment on above: Performed By: #### C BC, LIPASE, BMP, HEPATIC #### [address] Urobilinogen Test strip (U) [Mass/Vol]Ordered By: Andrew Ponce on 10-28-2024 Urobilinogen (U) [Mass/Vol] Normal mg/dL Normal [facility] pH of Urine by Test stripOrd ered By: Andrew Ponce on 10-28-2024 pH (U) 6.0 [pH] Normal 5.0-9.0 [facility] Comment on above: Order Comment: Name Collection Type:: Voided Performed By: #### C BC, LIPASE, BMP, HEPATIC #### [facility] [address] [id number] [facility] ED Note-Physicianon 10-26-19 ED Note-Physician ED Note-Physician Basic Information Time Seen: Jeff MARSH, Marco A Shaver 10/24/2024 16:36 Chief Complaint x2 days of [...] States that she does follow-up with the [facility] for GI follow-up. Review of Systems [...] Zepeda In 3 days 10/27/2024 EDT [address] [facility], [address] [address] [phone] Business (1) Additional Instructions: Follow-up with your GI doctor. If you do not have 1 you may follow-up with Dr. Zepeda. Raji JENSEN In 3 days 10/27/2024 EDT [address] [place] [address]- Business (1) Additional Instructions: Follow-up with your primary care doctor. You do not have 1 you may follow-up with Dr. Jensen. Patient Education Chronic Pancreatitis Attestation Patient seen and evaluated by the physician assistant farm operations manager. Attending physician was present in the emergency department and supervised care. This visit was performed by both the physician and an APC. I performed all aspects of the MDM as documented. This report was transcribed using voice recognition software. Every effort was made to ensure accuracy, however, inadvertently computerized returner mistakes may be present. Appropriate healthcare PPE was used in evaluating this patient. The patient was placed i (more content not included)... Normal [facility] Comment on above: Result Comment: Elec tronically Signed By: Marco A Aguilar PA-C\.br\Date and Time Signed: 10/24/24 18:47 EDT\.br\Electronically Co-Signed By: Darrel Ferrer DO\.br\Date and Time Co-Signed: 10/25/24 07:01 EDT BMPon 10-24-2024 Anion gap [Moles/Vol] 9 mmol/L Normal 6-16 [facility] Comment on above: Performed By: #### 2 [id number] #### [facility] [address] [place] [address] BUN/Creat Ratio 10 No Units Normal 10-20 [facility] Comment on above: Performed By: #### 2 [id number] #### [facility] [address] [place] [address] Calcium [Mass/Vol] 9.9 mg/dL Normal 8.9-11.1 [facility] Comment on above: Performed By: #### 2 [id number] #### [facility] [address] [place] [address] Chloride [Moles/Vol] 105 mmol/L Normal 101-111 [facility] Comment on above: Performed By: #### 2 [id number] #### [facility] [address] [place] [address] CO2 [Moles/Vol] 27 mmol/L Normal 21-[address] [facility] Comment on above: Performed By: #### 2 [id number] #### [facility] [address] [place] [address] Creatinine [Mass/Vol] 0.8 mg/dL Normal 0.5-1.3 [facility] Comment on above: Performed By: #### 2 [id number] #### [facility] [address] [place] [address] Glucose [Mass/Vol] 96 mg/dL Normal 55-199 [facility] Comment on above: Performed By: #### 2 [id number] #### [facility] [address] [place] [address] Potassium [Moles/Vol] 4.0 mmol/L Normal 3.5-5.3 [facility] Comment on above: Performed By: #### 2 [id number] #### [facility] [address] [place] [address] Sodium [Moles/Vol] 137 mmol/L Normal 135-145 [facility] Comment on above: Performed By: #### 2 [id number] #### [facility] [address] [place] [address] Urea nitrogen [Mass/Vol] 8 mg/dL Normal 5-21 [facility] Comment on above: Performed By: #### 2 [id number] #### [facility] [address] [place] [address] CBC w/ Auto Diffon 5 Basophil Absolute 0.2 E9/L Normal 0.0-0.2 [facility] Comment on above: Performed By: #### 2 [id number] #### [facility] [address] [place] [address] Basophils/100 WBC (Bld) 1.6 % Normal 0.0-2.0 [facility] Comment on above: Performed By: #### 2 [id number] #### [facility] [address] [place] [address] Eos Absolute 0.2 E9/L Normal 0.0-0.5 [facility] Comment on above: Performed By: #### 2 [id number] #### [facility] [address] [place] [address] Eosinophils/100 WBC (Bld) 1.8 % Normal 0.0-8.0 [facility] Comment on above: Performed By: #### 2 [id number] #### [facility] [address] [place] [address] Erythrocyte distribution width (RBC) [Ratio] 13.4 % Normal 10.9-14.2 [facility] Comment on above: Performed By: #### 2 [id number] #### [facility] [address] [place] [address] Hematocrit (Bld) [Volume fraction] 40.1 % Normal 34.0-46.0 [facility] Comment on above: Performed By: #### 2 [id number] #### [facility] [address] [place] [address] Hemoglobin (Bld) [Mass/Vol] 14.0 g/dL Normal 12.0-16.0 [facility] Comment on above: Performed By: #### 2 874386 #### [facility] [address] [place] [address] Lymph Absolute 2.8 E9/L Normal 1.0-4.0 [facility] Comment on above: Performed By: #### 2 899504 #### [facility] [address] [place] [address] Lymphocytes/100 WBC (Bld) 28.5 % Normal 14.0-50.0 [facility] Comment on above: Performed By: #### 2 155694 #### [facility] [address] [place] [address] MCH (RBC) [Entitic mass] 34.4 pg High 27.0-34.0 [facility] Comment on above: Performed By: #### 2 [id number] #### [facility] [address] [place] [address] MCHC (RBC) [Mass/Vol] 34.8 g/dL Normal 31.4-36.0 [facility] Comment on above: Performed By: #### 2 [id number] #### [facility] [address] [place] [address] MCV (RBC) [Entitic vol] 98.7 fL Normal 80.0-100.0 [facility] Comment on above: Performed By: #### 2 273381 #### [facility] [address] [place] [address] [place] Absolute 0.8 E9/L Normal 0.2-1.0 [facility] Comment on above: Performed By: #### 2 624993 #### [facility] [address] [place] [address] Monocytes/100 WBC (Bld) 8.3 % Normal 4.0-14.0 [facility] Comment on above: Performed By: #### 2 [id number] #### [facility] [address] [place] [address] Neutro Absolute 5.9 E9/L Normal 2.0-7.[address] [facility] Comment on above: Performed By: #### 2 247889 #### [facility] [address] [place] [address] Neutro Auto 59.8 % Normal 36.0-75.0 [facility] Comment on above: Performed By: #### 2 274367 #### [facility] [address] [place] [address] Platelet 274.0 E9/L Normal 150.0-500. 0 [facility] Comment on above: Performed By: #### 2 [id number] #### [facility] [address] [place] [address] Platelet mean volume (Bld) [Entitic vol] 8.1 fL Normal 6.4-10.8 [facility] Comment on above: Performed By: #### 2 [id number] #### [facility] [address] [place] [address] RBC 4.1 E12/L Low 4.3-5.9 [facility] Comment on above: Performed By: #### 2 335561 #### [facility] [address] [place] [address] WBC 9.9 E9/L Normal 4.0-11.0 [facility] Comment on above: Performed By: #### 2 [id number] #### [facility] [address] [place] [address] ED Clinical Summaryon 2024 ED Clinical Summary ED Clinical Summary [address] [address] ED Clinical Summary Person Information [facility] Age[facility] 54 Years : 1970 Sex: Female Language: [place] PCP: NONE, XXXX Marital Status: Visit Id: [...] 10/24/2024 19:00:42 10/24/2024 19:00:42 10/24/2024 19:00:42 ADDRESS: [address] [place] [phone] PHYS DOC NOTES: MEDICAL INFORMATION: Prescriptions Given: Medications to Continue with No Changes Other Medications promethazine (promethazine 25 mg Tab) 1 Tablets By Mouth 3 times a day. Refills: 0. PATIENT EDUCATION INFORMATION: Instructions: Chronic Pancreatitis Follow up: With: Address: When: [address], [address], [address] [phone] Business (1) In 3 days 10/27/2024 Comments: Follow-up with your GI doctor. If you do not have 1 you may follow-up with Dr. Zepeda. With: Address: When: Raji JENSEN [address] [place], [place] [phone] Business (1) In 3 days 10/27/2024 Comments: Follow-up with your primary care doctor. You do not have 1 you may follow-up with Dr. Jensen. DIAGNOSIS: Chronic pancreatitis Normal [facility] ED Patient Summaryon 025 ED Patient Summary ED Patient Summary [address] [address] Patient Discharge Instructions Person Information Name: CHIOMA ARCINIEGA Age: 54 Years Arrival Date: 10/24/2024 16:30:34 Discharge Diagnosis: Chronic pancreatitis Primary Care Physician: NONE, XXXX Provider Information Primary Provider: Darrel Ferrer DO [employer] Supervisor:Marco A Aguilar PA-C The exam and treatment you received in the Emergency Department were for an urgent problem and are not intended as complete care. It is important that you follow up with a doctor, nurse practitioner, or physician???s assistant farm operations manager for ongoing care. If your symptoms become worse or you do not improve as expected and you are unable to reach your usual health care provider, you should return to the Emergency Department. We are available 24 hours a day. JANUSZCHIOMA has been given the following list of patient education materials, prescriptions and follow-up instructions: Follow-up Instructions: With: Address: When: [address], [address], [address] [phone] Business (1) In 3 days 10/27/2024 Comments: Follow-up with your GI doctor. If you do not have 1 you may follow-up with Dr. Zepeda. With: Address: When: [place] [address] Business (1) In 3 days [...] opioids can be used to help relieve fpiuydiq-rn-fcpxoy pain and are often prescribed following a [...] (more content not included)... Normal [facility] Hep Func Panelon 10-24-2024 Albumin [Mass/Vol] 4.3 g/dL Normal 3.3-5.0 [facility] Comment on above: Performed By: #### 2 [id number] #### [facility] [address] [place] [address] Albumin/Globulin [Mass ratio] 1.8 {ratio} Normal 1.1-2.2 [facility] Comment on above: Performed By: #### 2 [id number] #### [facility] [address] [place] [address] Alk Phos 125 Int._Unit/L High 21-[address] [facility] Comment on above: Performed By: #### 2 [id number] #### [facility] [address] [place] [address] ALT 9 Int._Unit/L Normal 6-46 [facility] Comment on above: Performed By: #### 2 [id number] #### [facility] [address] [place] [address] AST 18 Int._Unit/L Normal 5-43 [facility] Comment on above: Performed By: #### 2 [id number] #### [facility] [address] [place] [address] Bili Direct 0.0 mg/dL Normal 0.0-0.4 [facility] Comment on above: Performed By: #### 2 [id number] #### [facility] [address] [place] [address] Bili Indirect 0.2 mg/dL Normal 0.1-0.9 [facility] Comment on above: Performed By: #### 2 [id number] #### [facility] [address] [place] [address] Bili Total 0.2 mg/dL Normal 0.0-1.1 [facility] Comment on above: Performed By: #### 2 [id number] #### [facility] [address] [place] [address] Globulin (S) [Mass/Vol] 2.4 g/dL Normal 1.4-4.0 [facility] Comment on above: Performed By: #### 2 [id number] #### [facility] [address] [place] [address] Protein [Mass/Vol] 6.7 g/dL Normal 6.0-7.8 [facility] Comment on above: Performed By: #### 2 [id number] #### [facility] [address] [place] [address] Lipase Levelon 10-24-2024 Lipase Lvl 56 unit/L Normal 13-58 [facility] Comment on above: Performed By: #### 2 [id number] #### [facility] [address] [place] [address] UA with Cult Rflxon 10-25-19 25 Color (U) Colorless Abnormal Yellow [facility] Comment on above: Result Comment: Micr oscopic readings are only performed on those samples that meet specific criteria set forth by [facility]. Performed By: #### 4 [id number] #### [facility] [address] [place] [address] Glucose (U) [Mass/Vol] Negative Normal Negative [facility] Comment on above: Performed By: #### 4 [id number] #### [facility] [address] [place] [address] Ketones Ql (U) Negative Normal Negative [facility] Comment on above: Performed By: #### 4 [id number] #### [facility] [address] [place] [address] UA Blood Negative Normal Negative [facility] Comment on above: Performed By: #### 4 [id number] #### [facility] [address] [place] [address] UA Clarity Clear Normal Clear [facility] Comment on above: Performed By: #### 4 [id number] #### [facility] [address] [place] [address] UA Leuk Est Negative Normal Negative [facility] Comment on above: Performed By: #### 4 [id number] #### [facility] [address] [place] [address] UA Nitrite Negative Normal Negative [facility] Comment on above: Performed By: #### 4 [id number] #### [facility] [address] [place] [address] UA pH 5.5 Invalid Interpretation Code 5.0-9.0 [facility] Comment on above: Performed By: #### 4 [id number] #### [facility] [address] [place] [address] UA Protein Negative Normal Negative [facility] Comment on above: Performed By: #### 4 [id number] #### [facility] [address] [place] [address] UA Spec Grav 1.006 Invalid Interpretation Code 1.005-1.03 0 [facility] Comment on above: Performed By: #### 4 [id number] #### [facility] [address] [place] [address] UA Urobilinogen Negative Normal Negative [facility] Comment on above: Performed By: #### 4 [id number] #### [facility] [address] [facility] [place] [address] Urobilinogen (U) [Mass/Vol] Negative Normal Negative [facility] Comment on above: Performed By: #### 4 [id number] #### [facility] [address] [facility] [place] [address] UA Spec Desc Clean Catch Normal [facility] Comment on above: Performed By: #### 4 [id number] #### [facility] [address] [place] [address] eGFRon 10-24-2024 eGFR 87 mL/min/1.73 m2 Normal >=59 [facility] Comment on above: Performed By: #### 1 [id number] #### [facility] [address] [facility] [place] [address] Alanine aminotransferase [En zymatic activity/volume] in Serum or PlasmaOrdered By: Diomedes Posadas on 10-19-2024 ALT [Catalytic activity/Vol] 9 U/L Normal 7-52 [facility] Comment on above: Performed By: #### C BC, LIPASE, BMP, HEPATIC #### [facility] [address] Albumin [Mass/volume] in Ser um or Plasma by Bromocresol green (BCG) dye binding methoOrdered By: Diomedes Posadas on 10-19-2024 Albumin BCG dye [Mass/Vol] 4.5 g/dL 3.5-5.7 [facility] Alkaline phosphatase [Enzyma tic activity/volume] in Serum or PlasmaOrdered By: Diomedes Posadas on 10-19-2024 ALP [Catalytic activity/Vol] 145 U/L High 34-104 [facility] Comment on above: Performed By: #### C BC, LIPASE, BMP, HEPATIC #### [facility] [address] [place] [address] Appearance of UrineOrdered B y: Diomedes Gardneranand on 10-19-2024 Appearance (U) Clear Normal Clear [facility] Comment on above: Order Comment: Name Collection Type:: Voided Performed By: #### C BC, LIPASE, BMP, HEPATIC #### [address] Aspartate aminotransferase [ Enzymatic activity/volume] in Serum or PlasmaOrdered By: Diomedes Posadas on 10-19-2024 AST [Catalytic activity/Vol] 16 U/L Normal 13- [facility] Comment on above: Performed By: #### C BC, LIPASE, BMP, HEPATIC #### [address] Basic Metabolic Panelon 10-07 Creatinine Clr Calc Pharmacy 60.57 Normal [facility] Comment on above: Performed By: #### C BC, LIPASE, BMP, HEPATIC #### [address] GFR/1.73 sq M.predicted MDRD (S/P/Bld) [Vol rate/Area] mL/min/{1.73_m2} Normal [facility] Comment on above: Performed By: #### C BC, LIPASE, BMP, HEPATIC #### [address] Basophils [#/volume] in Bloo d by Automated countOrdered By: Diomedes Posadas on 10-19-2024 Basophils (Bld) [#/Vol] 0.1 10*3/uL Normal 0.0-0.2 [facility] Comment on above: Result Comment: PERF ORMED BY: [place] [address] PATHOLOGIST VEHICLE WASHER TARA BENSON M.D. Performed By: #### C BC, LIPASE, BMP, HEPATIC #### [place] [address] [place] Basophils/100 leukocytes in Blood by Automated countOrdered By: Diomedes Posadas on 10-19-2024 Basophils/100 WBC (Bld) 0.9 % Normal . [facility] Comment on above: Performed By: #### C BC, LIPASE, BMP, HEPATIC #### [facility] [address] [place] [address] Bilirubin Test strip Ql (U)O rdered By: Diomedes Posadas on 10-19-2024 Bilirubin Ql (U) Negative Negative [facility] Bilirubin.direct [Mass/volum e] in Serum or PlasmaOrdered By: Diomedes Posadas on 10-19-2024 Bilirubin.direct [Mass/Vol] 0.00 mg/dL Low 0.03-0.18 [facility] Comment on above: If the DBIL is less than 0.1, IBIL is not able to becalculated. Bilirubin.total [Mass/volume ] in Serum or PlasmaOrdered By: Diomedes Posadas on 10-19-2024 Bilirubin [Mass/Vol] 0.4 mg/dL Normal 0.3-1.0 [facility] Comment on above: Performed By: #### C BC, LIPASE, BMP, HEPATIC #### [facility] [address] [place] [address] CT abdomen pelvis w conon CT abdomen pelvis w con [facility] [place] [address] CT Scan Report Signed Patient: Chioma Arciniega MR#: [id number] : 1970 Acct:[id number] Age/Sex: 54 / F ADM Date: 10/19/24 Loc: ER Room: Type: [facility] ER Attending Dr: Copies to: Diomedes [...] Mendieta M.D. 10/19/2024 10:12 PM Dictation Location: [facility] Transcribed By: [facility] 10/19/242211 Dictated By: Cruzito Mendieta DO 10/19/242203 Signed By: 10/19/242211 Normal [facility] Calcium [Mass/volume] in Ser um or PlasmaOrdered By: Diomedes Posadas on 10-19-2024 Calcium [Mass/Vol] 9.8 mg/dL Normal 8.6-10.3 [facility] Comment on above: Performed By: #### C BC, LIPASE, BMP, HEPATIC #### [facility] [address] Carbon dioxide, total [Moles /volume] in Serum or PlasmaOrdered By: Diomedes Posadas on 10-19-2024 CO2 [Moles/Vol] 25.0 mmol/L Normal 21.0-31.0 [facility] Comment on above: Performed By: #### C BC, LIPASE, BMP, HEPATIC #### [facility] [address] [place] [address] [place] Chloride [Moles/volume] in S erika or PlasmaOrdered By: Diomedes Posadas on 10-19-2024 Chloride [Moles/Vol] 106 mmol/L Normal 98-107 [facility] Comment on above: Performed By: #### C BC, LIPASE, BMP, HEPATIC #### [address] Color of Urine by AutoOrdere d By: Diomedes Posadas on 10-19-2024 Color (U) Colorless Normal Yellow [facility] Comment on above: Order Comment: Name Collection Type:: Voided Performed By: #### C BC, LIPASE, BMP, HEPATIC #### [address] Complete Blood Count Auto Di ffon 10-19-2024 Mean Corpuscular HGB Conc 33.7 g/dL Normal 32.0-35.0 [facility] Comment on above: Performed By: #### C BC, LIPASE, BMP, HEPATIC #### [address] Monocytes/100 WBC (Bld) 17.90 % Normal 0.00-20.00 [facility] Comment on above: Performed By: #### C BC, LIPASE, BMP, HEPATIC #### [address] NRBC% 0.0 /100{WBC} Normal 0-0.5 [facility] Comment on above: Performed By: #### C BC, LIPASE, BMP, HEPATIC #### [address] White Blood Count 11.2 [CFU]/mL Normal 3.8-11.6 [facility] Comment on above: Performed By: #### C BC, LIPASE, BMP, HEPATIC #### [address] Creatinine [Mass/volume] in Serum or PlasmaOrdered By: Diomedes Posadas on 10-19-2024 Creatinine [Mass/Vol] 0.83 mg/dL Normal 0.60-1.20 [facility] Comment on above: Performed By: #### C BC, LIPASE, BMP, HEPATIC #### [address] ECG 12 lead ECGon 10-19-2024 ECG 12 lead ECG [facility] [place] [address] [place] [address] Electrocardiograph Report Signed Patient: Chioma Arciniega MR#: [id number] : 1970 Acct:[id number] Age/Sex: 54 / F ADM Date: 10/19/24 Loc: ER Room: Type: [facility] ER Attending Dr: Ordering Provider: Diomedes Posadas [...] sinus rhythm Confirmed by Chi GARCIA DO ([id number]) on 10/20/2024 12:41:59 AM Referred By: Electronically Signed By: Chi GARCIA DO Transcribed By: MUS Signed By Chi Garcia DO 0 10/20/24 0042 Normal [facility] Eosinophils [#/volume] in Bl ood by Automated countOrdered By: Diomedes Posadas on 10-19-2024 Eosinophils (Bld) [#/Vol] 0.2 10*3/uL Normal 0.0-0.45 [facility] Comment on above: Performed By: #### C BC, LIPASE, BMP, HEPATIC #### [facility] [address] [place] [address] [place] Eosinophils/100 leukocytes i n Blood by Automated countOrdered By: Diomedes Posadas on 10-19-2024 Eosinophils/100 WBC (Bld) 1.6 % Normal . [facility] Comment on above: Performed By: #### C BC, LIPASE, BMP, HEPATIC #### [facility] [address] [place] [address] [place] Erythrocyte distribution wid th [Ratio] by Automated countOrdered By: Diomedes Posadas on 10-19-2024 Erythrocyte distribution width (RBC) [Ratio] 13.8 % Normal 11.9-15.3 [facility] Comment on above: Performed By: #### C BC, LIPASE, BMP, HEPATIC #### [facility] [address] [place] [address] [place] Erythrocytes [#/volume] in B lood by Automated countOrdered By: Diomedes Posadas on 10-19-2024 RBC (Bld) [#/Vol] 4.37 10*6/uL Normal 3.60-5.00 [facility] Comment on above: Performed By: #### C BC, LIPASE, BMP, HEPATIC #### [facility] [address] Glucose [Mass/volume] in Ser um or PlasmaOrdered By: Diomedes Posadas on 10-19-2024 Glucose [Mass/Vol] 84 mg/dL Normal 70-100 [facility] Comment on above: ADA recommended refe rence rangeRandom Glucose Reference Range is dependent on time and content of last meal. Glucose of more than 200 mg/dL in a nonstressed, ambulatory subject supports the diagnosis of Diabetes Mellitus. Result Comment: [place] Glucose Reference Range is dependent on time and content of last meal. Glucose of more than 200 mg/dL in a nonstressed, ambulatory subject supports the diagnosis of Diabetes Mellitus. ADA recommended reference range Performed By: #### C BC, LIPASE, BMP, HEPATIC #### [facility] [address] Glucose [Mass/volume] in Uri ne by Test stripOrdered By: Diomedes Posadas on 10-19-2024 Glucose Test strip (U) [Mass/Vol] Normal mg/dL Normal [facility] Hematocrit [Volume Fraction] of Blood by Automated countOrdered By: Diomedes Posadas on 10-19-2024 Hematocrit (Bld) [Volume fraction] 42.9 % Normal 34.0-46.4 [facility] Comment on above: Performed By: #### C BC, LIPASE, BMP, HEPATIC #### [facility] [address] [place] [id number] [facility] Hemoglobin Test strip Ql (U) Ordered By: Diomedes Posadas on 10-19-2024 Hemoglobin Ql (U) Negative Negative [facility] Hemoglobin [Mass/volume] in BloodOrdered By: Diomedes Posadas on 10-19-2024 Hemoglobin (Bld) [Mass/Vol] 14.4 g/dL Normal 11.8-15.4 [facility] Comment on above: Performed By: #### C BC, LIPASE, BMP, HEPATIC #### [facility] [address] Hepatic Panelon 10-19-2024 Albumin [Mass/Vol] 4.5 g/dL Normal 3.5-5.7 [facility] Comment on above: Performed By: #### C BC, LIPASE, BMP, HEPATIC #### [address] Bilirubin,Indirect 0.4 mg/dL Normal [facility] Comment on above: Performed By: #### C BC, LIPASE, BMP, HEPATIC #### [address] Bilirubin.indirect [Mass/Vol] 0.00 mg/dL Low 0.03-0.18 [facility] Comment on above: Result Comment: If t he DBIL is less than 0.1, IBIL is not able to be calculated. Performed By: #### C BC, LIPASE, BMP, HEPATIC #### [address] Ketones [Presence] in Urine by Test stripOrdered By: Diomedes Psoadas on 10-19-2024 Ketones Ql (U) Negative Normal Negative [facility] Comment on above: Order Comment: Name Collection Type:: Voided Performed By: #### C BC, LIPASE, BMP, HEPATIC #### [address] Leukocyte esterase [Presence ] in Urine by Test stripOrdered By: Diomedes Posadas on 10-19-2024 Leukocyte esterase Test strip Ql (U) Negative Normal Negative [facility] Comment on above: Order Comment: Name Collection Type:: Voided Performed By: #### C BC, LIPASE, BMP, HEPATIC #### [address] Leukocytes [#/volume] correc aurelia for nucleated erythrocytes in Blood by Automated counOrdered By: Diomedes Posadas on 10-19-2024 WBC corrected for nucl RBC Auto (Bld) [#/Vol] 11.2 10*3/uL 3.8-11.6 [facility] Leukocytes [#/volume] in Blo od by Automated countOrdered By: Diomedes Posadas on 10-19-2024 WBC (Bld) [#/Vol] 11.2 10*3/uL Normal 3.8-11.6 [facility] Comment on above: Performed By: #### C BC, LIPASE, BMP, HEPATIC #### [address] Lipase [Enzymatic activity/v olume] in Serum or PlasmaOrdered By: Diomedes Posadas on 10-19-2024 Lipase [Catalytic activity/Vol] 198.0 U/L High 11.0-82.0 [facility] Comment on above: Result Comment: PERF ORMED BY: [place] [address] PATHOLOGIST VEHICLE WASHER TARA BENSON M.D. Performed By: #### C BC, LIPASE, BMP, HEPATIC #### [address] Lymphocytes [#/volume] in Bl ood by Automated countOrdered By: Diomedes Posadas on 10-19-2024 Lymphocytes (Bld) [#/Vol] 3.3 10*3/uL Normal 1.00-4.8 [facility] Comment on above: Performed By: #### C BC, LIPASE, BMP, HEPATIC #### [facility] [address] [place] [address] [place] Lymphocytes/100 leukocytes i n Blood by Automated countOrdered By: Diomedes Posadas on 10-19-2024 Lymphocytes/100 WBC (Bld) 29.1 % Normal . [facility] Comment on above: Performed By: #### C BC, LIPASE, BMP, HEPATIC #### [place] [address] [place] MCH [Entitic mass] by Automa aurelia countOrdered By: Diomedes Posadas on 10-19-2024 MCH (RBC) [Entitic mass] 33.0 pg Normal 24.7-34.3 [facility] Comment on above: Performed By: #### C BC, LIPASE, BMP, HEPATIC #### [facility] [address] [place] [address] MCHC Auto (RBC) [Mass/Vol]Or dered By: Diomedes Posadas on 10-19-2024 MCHC (RBC) [Mass/Vol] 33.7 g/dL 32.0-35.0 [facility] MCV [Entitic volume] by Auto mated countOrdered By: Diomedes Posadas on 10-19-2024 MCV (RBC) [Entitic vol] 98.2 fL Normal 80-100 [facility] Comment on above: Performed By: #### C BC, LIPASE, BMP, HEPATIC #### [facility] [address] [place] [address] Monocyte distribution width [Entitic volume] in Blood by AutomatedOrdered By: Diomedes Posadas on 10-19-2024 Monocyte distribution width Auto (Bld) [Entitic vol] 17.90 % 0.00-20.00 [facility] Monocytes [#/volume] in Bloo d by Automated countOrdered By: Diomedes Posadas on 10-19-2024 Monocytes (Bld) [#/Vol] 1.0 10*3/uL High 0.0-0.8 [facility] Comment on above: Performed By: #### C BC, LIPASE, BMP, HEPATIC #### [facility] [address] [place] [address] [place] Monocytes/100 leukocytes in Blood by Automated countOrdered By: Diomedes Posadas on 10-19-2024 Monocytes/100 WBC (Bld) 8.6 % Normal . [facility] Comment on above: Performed By: #### C BC, LIPASE, BMP, HEPATIC #### [facility] [address] [place] [address] [place] Neutrophils [#/volume] in Bl ood by Automated countOrdered By: Diomedes Posadas on 10-19-2024 Neutrophils (Bld) [#/Vol] 6.7 10*3/uL Normal 1.8-7.7 [facility] Comment on above: Performed By: #### C BC, LIPASE, BMP, HEPATIC #### [facility] [address] [place] [address] [place] Neutrophils/100 leukocytes i n Blood by Automated countOrdered By: Diomedes Posadas on 10-19-2024 Neutrophils/100 WBC (Bld) 59.8 % Normal . [facility] Comment on above: Performed By: #### C BC, LIPASE, BMP, HEPATIC #### [facility] [address] Nitrite Test strip Ql (U)Ord ered By: Diomedes Posadas on 10-19-2024 Nitrite Ql (U) Negative Negative [facility] No Panel InformationOrdered By: Diomedes Posadas on 10-19-2024 Estimated GFR (CKD-EPI) > 60.0 mL/Min [facility] Creatinine Clearance (Chem 60.57 [facility] Nucleated erythrocytes [Pres ence] in Blood by Automated countOrdered By: Diomedes Posadas on 10-19-2024 Nucleated RBC Auto Ql (Bld) 0.0 /100{WBC} 0-0.5 [facility] Platelet mean volume [Entiti c volume] in Blood by Automated countOrdered By: Diomedes Posadas on 10-19-2024 Platelet mean volume (Bld) [Entitic vol] 7.5 fL Normal 6.3-10.7 [facility] Comment on above: Performed By: #### C BC, LIPASE, BMP, HEPATIC #### [facility] [address] [place] [address] [place] Platelets [#/volume] in Bloo d by Automated countOrdered By: Diomedes Posadas on 10-19-2024 Platelets (Bld) [#/Vol] 281 10*3/uL Normal 150-450 [facility] Comment on above: Performed By: #### C BC, LIPASE, BMP, HEPATIC #### [facility] [address] [place] [address] [place] Potassium [Moles/volume] in Serum or PlasmaOrdered By: Diomedes Posadas on 10-19-2024 Potassium [Moles/Vol] 3.9 mmol/L Normal 3.5-5.1 [facility] Comment on above: Performed By: #### C BC, LIPASE, BMP, HEPATIC #### [facility] [address] [place] [address] Protein Test strip (U) [Mass /Vol]Ordered By: Diomedes Posadas on 10-19-2024 Protein (U) [Mass/Vol] Negative Negative [facility] Protein [Mass/volume] in Ser um or PlasmaOrdered By: Diomedes Posadas on 10-19-2024 Protein [Mass/Vol] 7.3 g/dL Normal 6.4-8.9 [facility] Comment on above: Performed By: #### C BC, LIPASE, BMP, HEPATIC #### [address] Serum globulin measurement b y calculation (mass/volume)Ordered By: Diomedes Posadas on 10-19-2024 Globulin (S) [Mass/Vol] 2.8 g/dL [facility] Comment on above: Performed By: #### C BC, LIPASE, BMP, HEPATIC #### [address] Serum or plasma albumin/glob ulin mass ratioOrdered By: Diomedes Posadas on 10-19-2024 Albumin/Globulin [Mass ratio] 1.6 {ratio} [facility] Comment on above: Performed By: #### C BC, LIPASE, BMP, HEPATIC #### [facility] [address] [place] [address] Serum or plasma anion gap de terminationOrdered By: Diomedes Posadas on 10-19-2024 Anion gap [Moles/Vol] 11.9 mmol/L Normal 6.0-15.0 [facility] Comment on above: Performed By: #### C BC, LIPASE, BMP, HEPATIC #### [address] Serum or plasma non-glucuron idated bilirubin measurement (mass/volume)Ordered By: Diomedes Posadas on 10-19-2024 Bilirubin.indirect [Mass/Vol] 0.4 mg/dL [facility] Sodium [Moles/volume] in Ser um or PlasmaOrdered By: Diomedes Posadas on 10-19-2024 Sodium [Moles/Vol] 139 mmol/L Normal 136-145 [facility] Comment on above: Performed By: #### C BC, LIPASE, BMP, HEPATIC #### [address] Specific gravity Test strip (U) [Rel density]Ordered By: Diomedes Posadas on 10-19-2024 Specific gravity (U) [Rel density] 1.007 1.001-1.03 0 [facility] Urea nitrogen [Mass/volume] in Serum or PlasmaOrdered By: Diomedes Posadas on 10-19-2024 Urea nitrogen [Mass/Vol] 11 mg/dL Normal 7-25 [facility] Comment on above: Performed By: #### C BC, LIPASE, BMP, HEPATIC #### [address] Urinalysison 10-19-2024 Bilirubin,Urine Negative Normal Negative [facility] Comment on above: Order Comment: Name Collection Type:: Voided Performed By: #### C BC, LIPASE, BMP, HEPATIC #### [address] Glucose Ql (U) Normal Normal Normal [facility] Comment on above: Order Comment: Name Collection Type:: Voided Performed By: #### C BC, LIPASE, BMP, HEPATIC #### [place] [address] [place] Nitrite,Urine Negative Normal Negative [facility] Comment on above: Order Comment: Name Collection Type:: Voided Performed By: #### C BC, LIPASE, BMP, HEPATIC #### [address] Occult Blood,Urine Negative Normal Negative [facility] Comment on above: Order Comment: Name Collection Type:: Voided Result Comment: PERF ORMED BY: [place] [address] PATHOLOGIST VEHICLE WASHER TARA S MARCELINO M.D. Performed By: #### C BC, LIPASE, BMP, HEPATIC #### [facility] [address] Protein,Urine Negative Normal Negative [facility] Comment on above: Order Comment: Name Collection Type:: Voided Performed By: #### C BC, LIPASE, BMP, HEPATIC #### [facility] [address] Specificy [place],Urine 1.007 Normal 1.001-1.03 0 [facility] Comment on above: Order Comment: Name Collection Type:: Voided Performed By: #### C BC, LIPASE, BMP, HEPATIC #### [facility] [address] Urobilinogen,Urine Normal Normal Normal [facility] Comment on above: Order Comment: Name Collection Type:: Voided Performed By: #### C BC, LIPASE, BMP, HEPATIC #### [address] [address] Urobilinogen Test strip (U) [Mass/Vol]Ordered By: Diomedes Posadas on 10-19-2024 Urobilinogen (U) [Mass/Vol] Normal mg/dL Normal [facility] pH of Urine by Test stripOrd ered By: Diomedes Posadas on 10-19-2024 pH (U) 5.5 [pH] Normal 5.0-9.0 [facility] Comment on above: Order Comment: Name Collection Type:: Voided Performed By: #### C BC, LIPASE, BMP, HEPATIC #### [address] ED Note-Physicianon 10-16-19 ED Note-Physician ED Note-Physician Basic Information Time Seen: Jeff MARSH, Marco A Shaver 10/09/2024 13:33 Chief Complaint pt reports hx [...] seen and evaluated by the physician assistant farm operations manager. Attending physician was present in the emergency department and supervised care. This visit was performed by both the physician and an APC. I performed all aspects of the MDM as documented. This report was transcribed using voice recognition software. Every effort was made to ensure accuracy, however, inadvertently computerized returner mistakes may be present. Appropriate healthcare PPE [...] (more content not included)... Normal [facility] Comment on above: Result Comment: Elec tronically Signed By: Jeff MARSH, Marco A Shaver\.br\Date and Time Signed: 10/09/24 16:16 EDT\.br\Electronically Co-Signed By: Kike ALEXANDER, Ish\.br\Date and Time Co-Signed: 10/15/24 08:10 EDT APTTon 10-11-2024 aPTT Coag (Bld) [Time] 28 s Normal 26-37 [facility] Comment on above: Performed By: #### 8 9579-7, 05222-8, 5643-2, 62465-9, LIVR, 3040-3, CBCA, BMP #### [facility] ([id number]) [address] [place] [address] 01842 BASIC METABOLIC PANELon 08-0 Anion gap [Moles/Vol] 5 mmol/L Normal 5-15 [facility] Comment on above: Performed By: #### 8 9579-7, 41738-1, 5643-2, 36864-3, LIVR, 3040-3, CBCA, BMP #### [facility] ([id number]) [address] [place] [address] 53860 Calcium [Mass/Vol] 9.3 mg/dL Normal 8.5-10.5 [facility] Comment on above: Performed By: #### 8 9579-7, 00965-7, 5643-2, 04382-3, LIVR, 3040-3, CBCA, BMP #### [facility] ([id number]) [address] [place] [address] 10228 Chloride [Moles/Vol] 106 mmol/L Normal 98-109 [facility] Comment on above: Performed By: #### 8 9579-7, 90315-0, 5643-2, 57432-2, LIVR, 3040-3, CBCA, BMP #### [facility] ([id number]) [address] [place] [address] CO2 [Moles/Vol] 25 mmol/L Normal 22-32 [facility] Comment on above: Performed By: #### 8 9579-7, 29650-3, 5643-2, 15527-7, LIVR, 3040-3, CBCA, BMP #### [facility] ([id number]) [address] [place] [address] 33183 Creatinine [Mass/Vol] 0.80 mg/dL Normal 0.40-1.00 [facility] Comment on above: Result Comment: METH OD TRACEABLE TO IDMS STANDARD Performed By: #### 8 9579-7, 89472-8, 5643-2, 51605-5, LIVR, 3040-3, CBCA, BMP #### [facility] ([id number]) [address] [place] [address] 99697 GFR/1.73 sq M.predicted among non-blacks MDRD (S/P/Bld) [Vol rate/Area] 87 mL/min/{1.73_m2} Normal >=60 [facility] Comment on above: Result Comment: eGFR not reported due to non-numeric value for Creatinine. Reported eGFR is based on the CKD-EPI 2021 equation that does not use a race coefficient. Performed By: #### 8 9579-7, 40702-9, 5643-2, 50854-5, LIVR, 3040-3, CBCA, BMP #### [facility] ([id number]) [address] [place] [address] 54377 Glucose [Mass/Vol] 98 mg/dL Normal 65-99 [facility] Comment on above: Performed By: #### 8 9579-7, 27568-3, 5643-2, 78542-4, LIVR, 3040-3, CBCA, BMP #### [facility] ([id number]) [address] [place] [address] 73508 Potassium [Moles/Vol] 3.9 mmol/L Normal 3.5-5.0 [facility] Comment on above: Performed By: #### 8 9579-7, 07049-7, 5643-2, 59285-5, LIVR, 3040-3, CBCA, BMP #### [facility] ([id number]) [address] [place] [address] 50910 Sodium [Moles/Vol] 136 mmol/L Normal 134-146 [facility] Comment on above: Performed By: #### 8 9579-7, 45375-9, 5643-2, 62658-5, LIVR, 3040-3, CBCA, BMP #### [facility] ([id number]) [address] [place] [address] 05269 Urea nitrogen [Mass/Vol] 10 mg/dL Normal 5-23 [facility] Comment on above: Performed By: #### 8 9579-7, 56608-1, 5643-2, 54974-9, LIVR, 3040-3, CBCA, BMP #### [facility] ([id number]) [address] [place] [address] 24972 CBC WITH AUTO DIFFERENTIALon 10-11-2024 BASOPHILS ABSOLUTE COUNT (10*3/UL) BY AUTOMATED COUNT 0.1 10*3/uL Normal 0.0-0.2 [facility] Comment on above: Performed By: #### 8 9579-7, 75151-0, 5643-2, 17272-8, LIVR, 3040-3, CBCA, BMP #### [facility] ([id number]) [address] [place] [address] 82847 BASOPHILS RELATIVE PERCENT BY AUTOMATED COUNT 0.9 % Normal [facility] Comment on above: Performed By: #### 8 9579-7, 18640-2, 5643-2, 87843-7, LIVR, 3040-3, CBCA, BMP #### [facility] ([id number]) [address] [place] [address] 10823 CELLAVISION DIFFERENTIAL TYPE AUTOMATED DIFFERENTIAL Normal [facility] Comment on above: Performed By: #### 8 9579-7, 26651-9, 5643-2, 67155-6, LIVR, 3040-3, CBCA, BMP #### [facility] ([id number]) [address] [place] [address] 01094 Eosinophils (Bld) [#/Vol] 0.2 10*3/uL Normal 0.0-0.4 [facility] Comment on above: Performed By: #### 8 9579-7, 93090-9, 5643-2, 18296-9, LIVR, 3040-3, CBCA, BMP #### [facility] ([id number]) [address] [place] [address] 89558 EOSINOPHILS RELATIVE PERCENT BY AUTOMATED COUNT 2.8 % Normal [facility] Comment on above: Performed By: #### 8 9579-7, 27192-5, 5643-2, 53863-6, LIVR, 3040-3, CBCA, BMP #### [facility] ([id number]) [address] [place] [address] 52734 Erythrocyte distribution width (RBC) [Ratio] 13.6 % Normal 11.5-15 [facility] Comment on above: Performed By: #### 8 9579-7, 69451-9, 5643-2, 64193-7, LIVR, 3040-3, CBCA, BMP #### [facility] ([id number]) [address] [place] [address] 94865 Hematocrit (Bld) [Volume fraction] 40.5 % Normal 35-47 [facility] Comment on above: Performed By: #### 8 9579-7, 28139-7, 5643-2, 42873-0, LIVR, 3040-3, CBCA, BMP #### [facility] ([id number]) [address] [place] [address] 64298 Hemoglobin (Bld) [Mass/Vol] 13.9 g/dL Normal 11.7-15.5 [facility] Comment on above: Performed By: #### 8 9579-7, 00992-5, 5643-2, 18313-8, LIVR, 3040-3, CBCA, BMP #### [facility] ([id number]) [address] [place] [address] 02318 LYMPHOCYTES ABSOLUTE COUNT (10*3/UL) BY AUTOMATED COUNT 2.1 10*3/uL Normal 1.0-3.5 [facility] Comment on above: Performed By: #### 8 9579-7, 56244-1, 5643-2, 65462-3, LIVR, 3040-3, CBCA, BMP #### [facility] ([id number]) [address] [place] [address] 54448 LYMPHOCYTES RELATIVE PERCENT BY AUTOMATED COUNT 23.7 % Normal [facility] Comment on above: Performed By: #### 8 9579-7, 49369-0, 5643-2, 94026-5, LIVR, 3040-3, CBCA, BMP #### [facility] ([id number]) [address] [place] [address] 94053 MCH (RBC) [Entitic mass] 33.2 pg Normal 27-34 [facility] Comment on above: Performed By: #### 8 9579-7, 91818-4, 5643-2, 79559-7, LIVR, 3040-3, CBCA, BMP #### [facility] ([id number]) [address] [place] [address] 96556 MCHC (RBC) [Mass/Vol] 34.3 g/dL Normal 32-36 [facility] Comment on above: Performed By: #### 8 9579-7, 28412-8, 5643-2, 26978-5, LIVR, 3040-3, CBCA, BMP #### [facility] ([id number]) [address] [place] [address] 81136 MCV (RBC) [Entitic vol] 97 fL Normal 80-100 [facility] Comment on above: Performed By: #### 8 9579-7, 57996-0, 5643-2, 53172-8, LIVR, 3040-3, CBCA, BMP #### [facility] ([id number]) [address] [place] [address] 62563 MONOCYTES ABSOLUTE COUNT (10*3/UL) BY AUTOMATED COUNT 0.8 10*3/uL Normal 0.0-0.9 [facility] Comment on above: Performed By: #### 8 9579-7, 17436-3, 5643-2, 20431-3, LIVR, 3040-3, CBCA, BMP #### [facility] ([id number]) [address] [place] [address] 55714 MONOCYTES RELATIVE PERCENT BY AUTOMATED COUNT 8.9 % Normal [facility] Comment on above: Performed By: #### 8 9579-7, 68027-2, 5643-2, 45869-3, LIVR, 3040-3, CBCA, BMP #### [facility] ([id number]) [address] [place] [address] 50194 NEUTROPHILS ABSOLUTE COUNT BY AUTOMATED COUNT 5.6 10*3/uL Normal 1.5-6.6 [facility] Comment on above: Performed By: #### 8 9579-7, 27310-4, 5643-2, 99269-2, LIVR, 3040-3, CBCA, BMP #### [facility] ([id number]) [address] [place] [address] 11370 NEUTROPHILS RELATIVE PERCENT BY AUTOMATED COUNT 63.7 % Normal [facility] Comment on above: Performed By: #### 8 9579-7, 31116-5, 5643-2, 93832-5, LIVR, 3040-3, CBCA, BMP #### [facility] ([id number]) [address] [place] [address] 52391 Platelet mean volume (Bld) [Entitic vol] 7.7 fL Normal 7-12 [facility] Comment on above: Performed By: #### 8 9579-7, 45119-0, 5643-2, 45344-5, LIVR, 3040-3, CBCA, BMP #### [facility] ([id number]) [address] [place] [address] 28402 Platelets (Bld) [#/Vol] 244 10*3/uL Normal 150-450 [facility] Comment on above: Performed By: #### 8 9579-7, 88495-4, 5643-2, 59195-3, LIVR, 3040-3, CBCA, BMP #### [facility] ([id number]) [address] [place] [address] 55043 RBC COUNT 4.19 X10E12/L Normal 3.8-5.2 [facility] Comment on above: Performed By: #### 8 9579-7, 82759-6, 5643-2, 48047-3, LIVR, 3040-3, CBCA, BMP #### [facility] ([id number]) [address] [place] [address] 98607 WBC (Bld) [#/Vol] 8.8 10*3/uL Normal 4-11 [facility] Comment on above: Performed By: #### 8 9579-7, 36646-3, 5643-2, 13365-2, LIVR, 3040-3, CBCA, BMP #### [facility] ([id number]) [address] [place] [address] 69190 ETHANOLon 10-11-2024 Ethanol [Mass/Vol] mg/dL Normal <=0.080 [facility] Comment on above: Result Comment: This report is intended for use in clinical monitoring or management of patients. Performed By: #### 8 9579-7, 86175-3, 5643-2, 35893-7, LIVR, 3040-3, CBCA, BMP #### [facility] ([id number]) [address] [place] [address] 34407 LIPASEon 10-11-2024 Lipase [Catalytic activity/Vol] 49 U/L High 17-40 [facility] Comment on above: Performed By: #### 8 9579-7, 33502-5, 5643-2, 50129-6, LIVR, 3040-3, CBCA, BMP #### [facility] ([id number]) [address] [place] [address] 06413 LIVER PANELon 10-11-2024 Albumin [Mass/Vol] 3.9 g/dL Normal 3.2-5.3 [facility] Comment on above: Performed By: #### 8 9579-7, 72535-4, 5643-2, 50536-6, LIVR, 3040-3, CBCA, BMP #### [facility] ([id number]) [address] [place] [address] 16752 ALP [Catalytic activity/Vol] 111 U/L Normal 39-130 [facility] Comment on above: Performed By: #### 8 9579-7, 76941-2, 5643-2, 90935-8, LIVR, 3040-3, CBCA, BMP #### [facility] ([id number]) [address] [place] [address] 00174 ALT [Catalytic activity/Vol] 12 U/L Normal <=31 [facility] Comment on above: Performed By: #### 8 9579-7, 20458-6, 5643-2, 03997-8, LIVR, 3040-3, CBCA, BMP #### [facility] ([id number]) [address] [place] [address] 17940 AST [Catalytic activity/Vol] 22 U/L Normal <=41 [facility] Comment on above: Performed By: #### 8 9579-7, 96463-6, 5643-2, 93129-5, LIVR, 3040-3, CBCA, BMP #### [facility] ([id number]) [address] [place] [address] 61912 Bilirubin [Mass/Vol] 0.2 mg/dL Low 0.3-1.2 [facility] Comment on above: Performed By: #### 8 9579-7, 55586-8, 5643-2, 80309-5, LIVR, 3040-3, CBCA, BMP #### [facility] ([id number]) [address] [place] [address] 72586 Bilirubin.indirect [Mass/Vol] 0.1 mg/dL Normal <=0.4 [facility] Comment on above: Performed By: #### 8 9579-7, 07692-6, 5643-2, 23429-1, LIVR, 3040-3, CBCA, BMP #### [facility] ([id number]) [address] [place] [address] 14886 Protein [Mass/Vol] 6.8 g/dL Normal 6.0-8.0 [facility] Comment on above: Performed By: #### 8 9579-7, 38541-8, 5643-2, 31798-0, LIVR, 3040-3, CBCA, BMP #### [facility] ([id number]) [address] [place] [address] 48959 MAGNESIUMon 10-11-2024 Magnesium [Mass/Vol] 2.3 mg/dL Normal 1.8-2.6 [facility] Comment on above: Performed By: #### 8 9579-7, 03792-2, 5643-2, 18862-9, LIVR, 3040-3, CBCA, BMP #### [facility] ([id number]) [address] [place] [address] PROTIME AND INRon 10-11-2024 INR 0.9 Normal 0.9-1.2 [facility] Comment on above: Performed By: #### 8 9579-7, 14200-3, 5643-2, 39601-4, LIVR, 3040-3, CBCA, BMP #### [facility] ([id number]) [address] [place] [address] PT Coag (PPP) [Time] 10.3 s Normal 9.8-13.2 [facility] Comment on above: Performed By: #### 8 9579-7, 95542-9, 5643-2, 72984-6, LIVR, 3040-3, CBCA, BMP #### [facility] ([id number]) [address] [place] [address] CT Abdomen/Pelvis w/ Contras ton 10-10-2024 CT [...] Zepeda MD Transcribed by: ELMER Technologist: ANTONI Normal [facility] BMPon 10-09-2024 Anion gap [Moles/Vol] 12 mmol/L Normal 6-16 [facility] Comment on above: Performed By: #### 2 826701 #### [facility] [address] [place] [address] BUN/Creat Ratio 11 No Units Normal 10-20 [facility] Comment on above: Performed By: #### 2 111650 #### [facility] [address] [place] [address] Calcium [Mass/Vol] 10.1 mg/dL Normal 8.9-11.1 [facility] Comment on above: Performed By: #### 2 850240 #### [facility] [address] [place] [address] Chloride [Moles/Vol] 107 mmol/L Normal 101-111 [facility] Comment on above: Performed By: #### 2 743693 #### [facility] [address] [place] [address] CO2 [Moles/Vol] 25 mmol/L Normal 21-[address] [facility] Comment on above: Performed By: #### 2 089718 #### [facility] [address] [place] [address] Creatinine [Mass/Vol] 0.8 mg/dL Normal 0.5-1.3 [facility] Comment on above: Performed By: #### 2 968183 #### [facility] [address] [place] [address] Glucose [Mass/Vol] 87 mg/dL Normal 55-199 [facility] Comment on above: Performed By: #### 2 021649 #### [facility] [address] [place] [address] Potassium [Moles/Vol] 4.2 mmol/L Normal 3.5-5.3 [facility] Comment on above: Performed By: #### 2 620667 #### [facility] [address] [place] [address] Sodium [Moles/Vol] 140 mmol/L Normal 135-145 [facility] Comment on above: Performed By: #### 2 601267 #### [facility] [address] [place] [address] Urea nitrogen [Mass/Vol] 9 mg/dL Normal 5-21 [facility] Comment on above: Performed By: #### 2 946594 #### [facility] [address] [place] [address] CBC w/ Auto Diffon 08-03-202 5 Basophil Absolute 0.1 E9/L Normal 0.0-0.2 [facility] Comment on above: Performed By: #### 2 322088 #### [facility] [address] [place] [address] Basophils/100 WBC (Bld) 0.9 % Normal 0.0-2.0 [facility] Comment on above: Performed By: #### 2 084864 #### [facility] [address] [place] [address] Eos Absolute 0.2 E9/L Normal 0.0-0.5 [facility] Comment on above: Performed By: #### 2 701345 #### [facility] [address] [place] [address] Eosinophils/100 WBC (Bld) 2.8 % Normal 0.0-8.0 [facility] Comment on above: Performed By: #### 2 932589 #### [facility] [address] [place] [address] Erythrocyte distribution width (RBC) [Ratio] 13.7 % Normal 10.9-14.2 [facility] Comment on above: Performed By: #### 2 652010 #### [facility] [address] [place] [address] Hematocrit (Bld) [Volume fraction] 44.7 % Normal 34.0-46.0 [facility] Comment on above: Performed By: #### 2 225186 #### [facility] [address] [place] [address] Hemoglobin (Bld) [Mass/Vol] 15.3 g/dL Normal 12.0-16.0 [facility] Comment on above: Performed By: #### 2 612395 #### [facility] [address] [place] [address] Lymph Absolute 2.4 E9/L Normal 1.0-4.0 [facility] Comment on above: Performed By: #### 2 884077 #### [facility] [address] [place] [address] Lymphocytes/100 WBC (Bld) 31.5 % Normal 14.0-50.0 [facility] Comment on above: Performed By: #### 2 847041 #### [facility] [address] [place] [address] MCH (RBC) [Entitic mass] 33.3 pg Normal 27.0-34.0 [facility] Comment on above: Performed By: #### 2 448442 #### [facility] [address] [place] [address] MCHC (RBC) [Mass/Vol] 34.3 g/dL Normal 31.4-36.0 [facility] Comment on above: Performed By: #### 2 904203 #### [facility] [address] [place] [address] 92687 MCV (RBC) [Entitic vol] 97.0 fL Normal 80.0-100.0 [facility] Comment on above: Performed By: #### 2 453202 #### [facility] [address] [place] [address] [place] Absolute 0.7 E9/L Normal 0.2-1.0 [facility] Comment on above: Performed By: #### 2 853588 #### [facility] [address] [place] [address] Monocytes/100 WBC (Bld) 9.2 % Normal 4.0-14.0 [facility] Comment on above: Performed By: #### 2 806935 #### [facility] [address] [place] [address] Neutro Absolute 4.3 E9/L Normal 2.0-7.[address] [facility] Comment on above: Performed By: #### 2 073820 #### [facility] [address] [place] [address] Neutro Auto 55.6 % Normal 36.0-75.0 [facility] Comment on above: Performed By: #### 2 178104 #### [facility] [address] [place] [address] Platelet 255.0 E9/L Normal 150.0-500. 0 [facility] Comment on above: Performed By: #### 2 632312 #### [facility] [address] [place] [address] Platelet mean volume (Bld) [Entitic vol] 7.7 fL Normal 6.4-10.8 [facility] Comment on above: Performed By: #### 2 455232 #### [facility] [address] [place] [address] RBC 4.6 E12/L Normal 4.3-5.9 [facility] Comment on above: Performed By: #### 2 484813 #### [facility] [address] [place] [address] WBC 7.7 E9/L Normal 4.0-11.0 [facility] Comment on above: Performed By: #### 2 599474 #### [facility] [address] [place] [address] ED Clinical Summaryon 2024 ED Clinical Summary ED Clinical Summary [address] [address] ED Clinical Summary Person Information Name: CHIOMA ARCINIEGA/[facility]_Oniel Age: 54 Years : 1970 Sex: Female Language: [place] PCP: NONE, XXXX Marital Status: Visit Id: [...] 10/09/2024 17:59:13 10/09/2024 17:59:13 10/09/2024 17:59:13 ADDRESS: [address] [place] [address] [id number] [facility] DOC NOTES: MEDICAL INFORMATION: Prescriptions Given: Medications to Continue with No Changes Other Medications promethazine (promethazine 25 mg Tab) 1 Tablets By Mouth 3 times a day. Refills: 0. PATIENT EDUCATION INFORMATION: Instructions: Chronic Pancreatitis Follow up: With: Address: When: [facility] [phone] In 3 days 10/12/2024 DIAGNOSIS: 1:Abdominal pain; Chronic pancreatitis Normal [facility] ED Patient Summaryon 025 ED Patient Summary ED Patient Summary [place] [id number] Patient Discharge Instructions Person Information Name: CHIOMA ARCINIEGA Age: 54 Years Arrival Date: 10/09/2024 13:21:49 Discharge Diagnosis: 1:Abdominal pain; Chronic pancreatitis Primary Care Physician: NONE, XXXX Provider Information Primary Provider: Ish Stokes MD [employer] Supervisor:Marco A Aguilar PA-C The exam and treatment you received in the Emergency Department were for an urgent problem and are not intended as complete care. It is important that you follow up with a doctor, nurse practitioner, or physician???s assistant farm operations manager for ongoing care. If your symptoms become worse or you do not improve as expected and you are unable to reach your usual health care provider, you should return to the Emergency Department. We are available 24 hours a day. JANUSZ CHIOMA has been given the following list of patient education materials, prescriptions and follow-up instructions: Follow-up Instructions: With: Address: When: [facility] [phone] In 3 days 10/12/2024 In the event that this physician does not participate in your insurance network, please consult with your insurance company to find a nearby participating provider. Patient Education Materials: Chronic Pancreatitis A MESSAGE TO ALL PATIENTS REGARDING OPIOIDS PRESCRIPTION OPIOIDS: WHAT YOU NEED TO KNOW Prescription opioids can be used to help relieve fxwzjlos-qj-sinnku pain and are often prescribed following a [...] be struggling with addiction, tell your health campground caretaker and ask for guidance or call [facility] (more content not included)... Normal [facility] Hep Func Panelon 10-09-2024 Albumin [Mass/Vol] 4.5 g/dL Normal 3.3-5.0 [facility] Comment on above: Performed By: #### 2 722122 #### [facility] [address] [place] [address] Albumin/Globulin [Mass ratio] 1.6 {ratio} Normal 1.1-2.2 [facility] Comment on above: Performed By: #### 2 459858 #### [facility] [address] [place] [address] Alk Phos 114 Int._Unit/L High 21-[address] [facility] Comment on above: Performed By: #### 2 411272 #### [facility] [address] [place] [address] ALT 9 Int._Unit/L Normal 6-46 [facility] Comment on above: Performed By: #### 2 235806 #### [facility] [address] [place] [address] AST 18 Int._Unit/L Normal 5-43 [facility] Comment on above: Performed By: #### 2 636241 #### [facility] [address] [place] [address] Bili Direct 0.0 mg/dL Normal 0.0-0.4 [facility] Comment on above: Performed By: #### 2 545724 #### [facility] [address] [place] [address] Bili Indirect 0.3 mg/dL Normal 0.1-0.9 [facility] Comment on above: Performed By: #### 2 397804 #### [facility] [facility] [address] [place] [address] Bili Total 0.3 mg/dL Normal 0.0-1.1 [facility] Comment on above: Performed By: #### 2 [id number] #### [facility] [address] [place] [address] Globulin (S) [Mass/Vol] 2.8 g/dL Normal 1.4-4.0 [facility] Comment on above: Performed By: #### 2 [id number] #### [facility] [address] [place] [address] Protein [Mass/Vol] 7.3 g/dL Normal 6.0-7.8 [facility] Comment on above: Performed By: #### 2 [id number] #### [facility] [address] [place] [address] Lipase Levelon 10-09-2024 Lipase Lvl 98 unit/L High 13-58 [facility] Comment on above: Performed By: #### 2 [id number] #### [facility] [address] [place] [address] UA with Cult Rflxon 10-10-19 25 Color (U) Colorless Abnormal Yellow [facility] Comment on above: Result Comment: Micr oscopic readings are only performed on those samples that meet specific criteria set forth by [facility]. Performed By: #### 4 [id number] #### [facility] [address] [place] [address] Glucose (U) [Mass/Vol] Negative Normal Negative [facility] Comment on above: Performed By: #### 4 [id number] #### [facility] [address] [place] [address] Ketones Ql (U) Negative Normal Negative [facility] Comment on above: Performed By: #### 4 [id number] #### [facility] [address] [place] [address] UA Blood Negative Normal Negative [facility] Comment on above: Performed By: #### 4 [id number] #### [facility] [address] [place] [address] UA Clarity Clear Normal Clear [facility] Comment on above: Performed By: #### 4 [id number] #### [facility] [address] [place] [address] UA Leuk Est Negative Normal Negative [facility] Comment on above: Performed By: #### 4 [id number] #### [facility] [address] [place] [address] UA Nitrite Negative Normal Negative [facility] Comment on above: Performed By: #### 4 [id number] #### [facility] [address] [place] [address] UA pH 5.5 Invalid Interpretation Code 5.0-9.0 [facility] Comment on above: Performed By: #### 4 [id number] #### [facility] [address] [place] [address] UA Protein Negative Normal Negative [facility] Comment on above: Performed By: #### 4 [id number] #### [facility] [address] [place] [address] UA Spec Grav >1.050 Invalid Interpretation Code 1.005-1.03 0 [facility] Comment on above: Performed By: #### 4 [id number] #### [facility] [address] [place] [address] UA Urobilinogen Negative Normal Negative [facility] Comment on above: Performed By: #### 4 [id number] #### [facility] [address] [place] [address] Urobilinogen (U) [Mass/Vol] Negative Normal Negative [facility] Comment on above: Performed By: #### 4 [id number] #### [facility] [address] [place] [address] UA Spec Desc Clean Catch Normal [facility] Comment on above: Performed By: #### 4 [id number] #### [facility] [address] [place] [address] eGFRon 10-09-2024 eGFR 87 mL/min/1.73 m2 Normal >=59 [facility] Comment on above: Performed By: #### 1 [id number] #### [facility] [address] [place] [address] BMPon 10-03-2024 Anion gap [Moles/Vol] 10 mmol/L Normal 6-16 [facility] Comment on above: Performed By: #### 2 [id number] #### [facility] [address] [place] [address] BUN/Creat Ratio 11 No Units Normal 10-20 [facility] Comment on above: Performed By: #### 2 [id number] #### [facility] [address] [place] [address] Calcium [Mass/Vol] 9.9 mg/dL Normal 8.9-11.1 [facility] Comment on above: Performed By: #### 2 [id number] #### [facility] [address] [place] [address] Chloride [Moles/Vol] 107 mmol/L Normal 101-111 [facility] Comment on above: Performed By: #### 2 [id number] #### [facility] [address] [place] [address] CO2 [Moles/Vol] 25 mmol/L Normal 21-[address] [facility] Comment on above: Performed By: #### 2 [id number] #### [facility] [address] [place] [address] Creatinine [Mass/Vol] 0.8 mg/dL Normal 0.5-1.3 [facility] Comment on above: Performed By: #### 2 [id number] #### [facility] [address] [place] [address] Glucose [Mass/Vol] 112 mg/dL Normal 55-199 [facility] Comment on above: Performed By: #### 2 [id number] #### [facility] [address] [place] [address] Potassium [Moles/Vol] 3.6 mmol/L Normal 3.5-5.3 [facility] Comment on above: Performed By: #### 2 [id number] #### [facility] [address] [place] [address] Sodium [Moles/Vol] 138 mmol/L Normal 135-145 [facility] Comment on above: Performed By: #### 2 [id number] #### [facility] [address] [place] [address] Urea nitrogen [Mass/Vol] 9 mg/dL Normal 5-21 [facility] Comment on above: Performed By: #### 2 [id number] #### [facility] [address] [place] [address] CBC w/ Auto Diffon 5 Basophil Absolute 0.1 E9/L Normal 0.0-0.2 [facility] Comment on above: Performed By: #### 2 [id number] #### [facility] [address] [place] [address] Basophils/100 WBC (Bld) 1.1 % Normal 0.0-2.0 [facility] Comment on above: Performed By: #### 2 [id number] #### [facility] [address] [place] [address] Eos Absolute 0.1 E9/L Normal 0.0-0.5 [facility] Comment on above: Performed By: #### 2 [id number] #### [facility] [address] [place] [address] Eosinophils/100 WBC (Bld) 1.4 % Normal 0.0-8.0 [facility] Comment on above: Performed By: #### 2 [id number] #### [facility] [address] [place] [address] Erythrocyte distribution width (RBC) [Ratio] 13.5 % Normal 10.9-14.2 [facility] Comment on above: Performed By: #### 2 [id number] #### [facility] [address] [place] [address] Hematocrit (Bld) [Volume fraction] 42.5 % Normal 34.0-46.0 [facility] Comment on above: Performed By: #### 2 [id number] #### [facility] [address] [place] [address] Hemoglobin (Bld) [Mass/Vol] 14.3 g/dL Normal 12.0-16.0 [facility] Comment on above: Performed By: #### 2 [id number] #### [facility] [address] [place] [address] Lymph Absolute 2.8 E9/L Normal 1.0-4.0 [facility] Comment on above: Performed By: #### 2 [id number] #### [facility] [address] [place] [address] Lymphocytes/100 WBC (Bld) 27.2 % Normal 14.0-50.0 [facility] Comment on above: Performed By: #### 2 [id number] #### [facility] [address] [place] [address] MCH (RBC) [Entitic mass] 32.6 pg Normal 27.0-34.0 [facility] Comment on above: Performed By: #### 2 [id number] #### [facility] [address] [place] [address] MCHC (RBC) [Mass/Vol] 33.7 g/dL Normal 31.4-36.0 [facility] Comment on above: Performed By: #### 2 [id number] #### [facility] [address] [place] [address] MCV (RBC) [Entitic vol] 96.8 fL Normal 80.0-100.0 [facility] Comment on above: Performed By: #### 2 [id number] #### [facility] [address] [place] [address] [place] Absolute 0.9 E9/L Normal 0.2-1.0 [facility] Comment on above: Performed By: #### 2 [id number] #### [facility] [address] [place] [address] Monocytes/100 WBC (Bld) 8.9 % Normal 4.0-14.0 [facility] Comment on above: Performed By: #### 2 [id number] #### [facility] [address] [place] [address] Neutro Absolute 6.3 E9/L Normal 2.0-7.[address] [facility] Comment on above: Performed By: #### 2 [id number] #### [facility] [address] [place] [address] Neutro Auto 61.4 % Normal 36.0-75.0 [facility] Comment on above: Performed By: #### 2 [id number] #### [facility] [address] [place] [address] Platelet 296.0 E9/L Normal 150.0-500. 0 [facility] Comment on above: Performed By: #### 2 [id number] #### [facility] [address] [place] [address] Platelet mean volume (Bld) [Entitic vol] 7.9 fL Normal 6.4-10.8 [facility] Comment on above: Performed By: #### 2 [id number] #### [facility] [address] [place] [address] RBC 4.4 E12/L Normal 4.3-5.9 [facility] Comment on above: Performed By: #### 2 086359 #### [facility] [address] [place] [address] WBC 10.3 E9/L Normal 4.0-11.0 [facility] Comment on above: Performed By: #### 2 505214 #### [facility] [address] [place] [address] ED Clinical Summaryon 2024 ED Clinical Summary ED Clinical Summary [address] [address] ED Clinical Summary Person Information Name: CHIOMA ARCINIEGA [facility] Age: 54 Years : 1970 Sex: Female Language: [place] PCP: NONE, XXXX Marital Status: Visit Id: [...] 10/03/2024 18:49:22 10/03/2024 18:49:22 10/03/2024 18:49:22 ADDRESS: [address] [place], [place] [address]RY [facility] [id number] PHYS DOC NOTES: MEDICAL INFORMATION: Prescriptions Given: New Medications Printed Prescriptions promethazine (promethazine 25 mg Tab) 1 Tablets By Mouth 3 times a day. Refills: 0. PATIENT EDUCATION INFORMATION: Instructions: Chronic Pancreatitis Follow up: With: Address: When: XXXX NONE , [place] In 3 days 10/06/2024 Comments: follow up with your GI physician DIAGNOSIS: Chronic pancreatitis Normal [facility] ED Note-Physicianon 10-04-19 ED Note-Physician ED Note-Physician Basic Information Time [...] made to ensure accuracy, however, inadvertently computerized returner mistakes may be present. Appropriate healthcare PPE [...] (more content not included)... Normal [facility] Comment on above: Result Comment: Elec tronically Signed By: Levar Jara PA-C\.br\Date and Time Signed: 10/03/24 18:38 EDT\.br\Electronically Co-Signed By: Darrel Ferrer DO\.br\Date and Time Co-Signed: 10/03/24 18:48 EDT ED Patient Summaryon 025 ED Patient Summary ED Patient Summary [address] [address] Patient Discharge Instructions Person Information Name: CHIOMA ARCINIEGA Age: 54 Years Arrival Date: 10/03/2024 17:23:23 Discharge Diagnosis: Chronic pancreatitis Primary Care Physician: NONE, XXXX Provider Information Primary Provider: Darrel Ferrer DO [employer] Supervisor:Levar Jara PA-C The exam and treatment you received in the Emergency Department were for an urgent problem and are not intended as complete care. It is important that you follow up with a doctor, nurse practitioner, or physician???s assistant farm operations manager for ongoing care. If your symptoms become [...] opioids can be used to help relieve faihlvcv-fw-[id number] pain and are often prescribed following a [...] be struggling with addiction, tell your health campground caretaker and ask for guidance or call (more content not included)... Normal [facility] Extra Blueon 10-03-2024 Tube Collected Plasma Yes Invalid Interpretation Code [facility] Comment on above: Performed By: #### 1 [id number] #### [facility] [address] [place] [address] Hep Func Panelon 10-03-2024 Albumin [Mass/Vol] 4.5 g/dL Normal 3.3-5.0 [facility] Comment on above: Performed By: #### 2 [id number] #### [facility] [address] [place] [address] Albumin/Globulin [Mass ratio] 1.8 {ratio} Normal 1.1-2.2 [facility] Comment on above: Performed By: #### 2 [id number] #### [facility] [address] [place] [address] Alk Phos 109 Int._Unit/L High 21-[address] [facility] Comment on above: Performed By: #### 2 [id number] #### [facility] [address] [place] [address] ALT 9 Int._Unit/L Normal 6-46 [facility] Comment on above: Performed By: #### 2 [id number] #### [facility] [address] [place] [address] AST 16 Int._Unit/L Normal 5-43 [facility] Comment on above: Performed By: #### 2 [id number] #### [facility] [address] [place] [address] Bili Direct 0.0 mg/dL Normal 0.0-0.4 [facility] Comment on above: Performed By: #### 2 [id number] #### [facility] [address] [place] [address] Bili Indirect 0.3 mg/dL Normal 0.1-0.9 [facility] Comment on above: Performed By: #### 2 [id number] #### [facility] [address] [place] [address] Bili Total 0.3 mg/dL Normal 0.0-1.1 [facility] Comment on above: Performed By: #### 2 [id number] #### [facility] [address] [place] [address] Globulin (S) [Mass/Vol] 2.5 g/dL Normal 1.4-4.0 [facility] Comment on above: Performed By: #### 2 [id number] #### [facility] [address] [place] [address] Protein [Mass/Vol] 7.0 g/dL Normal 6.0-7.8 [facility] Comment on above: Performed By: #### 2 [id number] #### [facility] [address] [place] [address] Lipase Levelon 10-03-2024 Lipase Lvl 199 unit/L High 13-58 [facility] Comment on above: Performed By: #### 2 [id number] #### [facility] [address] [place] [address] eGFRon 10-03-2024 eGFR 87 mL/min/1.73 m2 Normal >=59 [facility] Comment on above: Performed By: #### 1 [id number] #### [facility] [address] [place] [address] CBC with Auto Differentialon 09-27-2024 Basophils (Bld) [#/Vol] 0.08 10*3/uL [facility] Basophils/100 WBC (Bld) 1 % 0 - 2 % [facility] Eosinophils (Bld) [#/Vol] 0.08 10*3/uL [facility] Eosinophils/100 WBC (Bld) 1 % 1 - 4 % [facility] Erythrocyte distribution width (RBC) [Ratio] 13 % 11.8 - 14.4 % [facility] Hematocrit (Bld) [Volume fraction] 45.2 % 36.3 - 47.1 % [facility] Hemoglobin (Bld) [Mass/Vol] 15.5 g/dL High 11.9 - 15.1 g/dL [facility] Immature granulocytes (Bld) [#/Vol] 0 10*3/uL [facility] Immature granulocytes/100 WBC (Bld) 0 % 0 [facility] Interpret[facility] and review of laboratory results Abnormal [facility] Lymphocytes/100 WBC (Bld) 26 % 24 - 43 % [facility] Lymphocytes/100 WBC (Bld) 2.13 % [facility] MCH (RBC) [Entitic mass] 33.2 pg 25.2 - 33.5 pg [facility] MCHC (RBC) [Mass/Vol] 34.3 g/dL 28.4 - 34.8 g/dL [facility] MCV (RBC) [Entitic vol] 96.8 fL 82.6 - 102.9 fL [facility] Monocytes/100 WBC (Bld) 9 % 3 - 12 % [facility] Monocytes/100 WBC (Bld) 0.74 % [facility] Morphology Syed (Bld) [Interp] Normal [facility] Neutrophils/100 WBC (Bld) 63 % 36 - 65 % [facility] Nucleated RBC/100 WBC (Bld) [Ratio] 0 % 0.0 per 100 WBC [facility] Platelet, Fluorescence [address] [facility] Platelets (Bld) [#/Vol] See Reflexed IPF Result [facility] Platelets reticulated/100 platelets Auto (Bld) 2.4 % 1.1 - 10.3 % [facility] RBC (Bld) [#/Vol] 4.67 10*6/uL 3.95 - 5.11 m/uL [facility] Segmented neutrophils/100 WBC (Bld) 5.17 % [facility] WBC other (Bld) [#/Vol] 8.2 [facility] CBC with Diffon 09-27-2024 Abs. Basophil 0.08 k/uL Normal 0.0-0.2 [facility] Comment on above: Performed By: #### L WALTER ROONEY, CP #### [facility] [address] [place] [address] Black Leather Trimmer: Ion Jasso MD Abs.Imm.Granulocyte 0.00 k/uL Normal 0.00-0.30 [facility] Comment on above: Performed By: #### L WALTER ROONEY, CP #### [facility] [address] [place], [place] [address] Black Leather Trimmer: Ion Jasso MD Abs.Neutrophil (Seg) 5.17 k/uL Normal 1.50-8.10 [facility] Comment on above: Performed By: #### L IP, CDP, CP #### [facility] [address] [place] [address] Dr[address] [place], [facility] Black Leather Trimmer: Ion Jasso MD Basophils/100 WBC (Bld) 1 % Normal 0-2 [facility] Comment on above: Performed By: #### L IP, CDP, CP #### [address] [place], [facility] Black Leather Trimmer: Ion Jasso MD Eosinophils (Bld) [#/Vol] 0.08 10*3/uL Normal 0.00-0.44 [facility] Comment on above: Performed By: #### L IP, CDP, CP #### [address] [place], [place] [address] Black Leather Trimmer: Ion Jasso MD Eosinophils/100 WBC (Bld) 1 % Normal 1-4 [facility] Comment on above: Performed By: #### L IP, CDP, CP #### [address] [place], [facility] Black Leather Trimmer: Ion Jasso MD Immature granulocytes/100 WBC (Bld) 0 % Normal 0 [facility] Comment on above: Performed By: #### L IP, CDP, CP #### [address] [place], [facility] Black Leather Trimmer: Ion Jasso MD Lymphocytes (Bld) [#/Vol] 2.13 10*3/uL Normal 1.10-3.70 [facility] Comment on above: Performed By: #### L IP, CDP, CP #### [address] [place], [place] [id number] Black Leather Trimmer: Ion Jasso MD Lymphocytes/100 WBC (Bld) 26 % Normal 24-43 [facility] Comment on above: Performed By: #### L IP, CDP, CP #### [facility] [address] [place], [place] [id number] Black Leather Trimmer: Ion Jasso MD Monocytes (Bld) [#/Vol] 0.74 10*3/uL Normal 0.10-1.20 [facility] Comment on above: Performed By: #### L IP, CDP, CP #### [facility] [address] [place], [facility] Black Leather Trimmer: Ion Jasso MD Monocytes/100 WBC (Bld) 9 % Normal 3-12 [facility] Comment on above: Performed By: #### L IP, CDP, CP #### [address] [place], [facility] Black Leather Trimmer: Ion Jasso MD Morphology Syed (Bld) [Interp] Normal Normal [facility] Comment on above: Performed By: #### L IP, CDP, CP #### [address] [place], [facility] Black Leather Trimmer: Ion Jasso MD Neutrophil (Seg) 63 % Normal 36-65 [facility] Comment on above: Performed By: #### L IP, CDP, CP #### [facility] [address] [place], [facility] Black Leather Trimmer: Ion Jasso MD Platelet, Fluoresc. 159 k/uL Normal 138-453 [facility] Comment on above: Performed By: #### L IP, CDP, CP #### [facility] [address] [place] [address] Black Leather Trimmer: Ion Jasso MD PLT, Immature Fract. 2.4 % Normal 1.1-10.3 [facility] Comment on above: Performed By: #### L IP, CDP, CP #### [address] [place] [address] Black Leather Trimmer: Ion Jasso MD Erythrocyte distribution width (RBC) [Ratio] 13.0 % Normal 11.8-14.4 [facility] Comment on above: Performed By: #### L IP, CDP, CP #### [address] [place] [address] Black Leather Trimmer: Ion Jasso MD Hematocrit (Bld) [Volume fraction] 45.2 % Normal 36.3-47.1 [facility] Comment on above: Performed By: #### L IP, CDP, CP #### [address] [place] [address] Black Leather Trimmer: Ion Jasso MD Hemoglobin (Bld) [Mass/Vol] 15.5 g/dL High 11.9-15.1 [facility] Comment on above: Performed By: #### L IP, CDP, CP #### [address] [place] [address] Black Leather Trimmer: Ion Jasso MD MCH (RBC) [Entitic mass] 33.2 pg Normal 25.2-33.5 [facility] Comment on above: Performed By: #### L IP, CDP, CP #### [address] [place] [address] Black Leather Trimmer: Ion Jasso MD MCHC (RBC) [Mass/Vol] 34.3 g/dL Normal 28.4-34.8 [facility] Comment on above: Performed By: #### L IP, CDP, CP #### [address] [place] [address] Black Leather Trimmer: Ion Jasso MD MCV (RBC) [Entitic vol] 96.8 fL Normal 82.6-102.9 [facility] Comment on above: Performed By: #### L IP, CDP, CP #### [address] [place], [place] [id number] Black Leather Trimmer: Ion Jasso MD NRBC Automated 0.0 per 100 WBC Normal 0.0 [facility] Comment on above: Performed By: #### L IP, CDP, CP #### [address] [place], [place] [id number] Black Leather Trimmer: Ion Jasso MD Platelet Count See Reflexed IPF Result Normal 138-453 [facility] Comment on above: Performed By: #### L IP, CDP, CP #### [address] [place], [place] [id number] Black Leather Trimmer: Ion Jasso MD RBC (Bld) [#/Vol] 4.67 10*6/uL Normal 3.95-5.11 [facility] Comment on above: Performed By: #### L IP, CDP, CP #### [address] [place], [place] [address]83 Black Leather Trimmer: Ion Jasso MD WBC (Bld) [#/Vol] 8.2 10*3/uL Normal 3.5-11.3 [facility] Comment on above: Performed By: #### L IP, CDP, CP #### [address] [place], [place] [id number] Black Leather Trimmer: Ion Jasso MD Comp Metabolic Profon 2024 Albumin [Mass/Vol] 4.6 g/dL Normal 3.5-5.2 [facility] Comment on above: Performed By: #### L IP, CDP, CP #### [address] [place], [place] [address]83 Black Leather Trimmer: Ion Jasso MD Albumin/Glob Ratio 1.6 Normal 1.0-2.5 [facility] Comment on above: Performed By: #### L IP, CDP, CP #### [address] [place], [place] [id number] Black Leather Trimmer: Ion Jasso MD Alkaline Phos 145 U/L High 35-104 [facility] Comment on above: Performed By: #### L IP, CDP, CP #### [facility] [address] [place], [place] [id number] Black Leather Trimmer: Ion Jasso MD ALT [Catalytic activity/Vol] 12 U/L Normal 10-35 [facility] Comment on above: Performed By: #### L IP, CDP, CP #### [facility] [address] [place], [place] [id number] Black Leather Trimmer: Ion Jasso MD Anion gap [Moles/Vol] 15 mmol/L Normal 9-16 [facility] Comment on above: Performed By: #### L IP, CDP, CP #### [facility] [address] [place], [place] [id number] Black Leather Trimmer: Ion Jasso MD AST [Catalytic activity/Vol] 24 U/L Normal 10-35 [facility] Comment on above: Performed By: #### L IP, CDP, CP #### [facility] [address] [place], [place] [address]83 Black Leather Trimmer: Ion Jasso MD Bilirubin [Mass/Vol] 0.3 mg/dL Normal 0.00-1.20 [facility] [facility] Comment on above: Performed By: #### L IP, CDP, CP #### [facility] [address] [place], [place] [id number] Black Leather Trimmer: Ion Jasso MD BUN/CRE Ratio 10 Normal 9-20 [facility] Comment on above: Performed By: #### L IP, CDP, CP #### [facility] [address] [place] [address] Black Leather Trimmer: Ion Jasso MD Calcium [Mass/Vol] 10.1 mg/dL Normal 8.6-10.4 [facility] Comment on above: Performed By: #### L IP, CDP, CP #### [facility] [address] [place], [place] [id number] Black Leather Trimmer: Ion Jasso MD Chloride [Moles/Vol] 103 mmol/L Normal 98-107 [facility] Comment on above: Performed By: #### L IP, CDP, CP #### [facility] [address] [place], [place] [id number] Black Leather Trimmer: Ion Jasso MD CO2 [Moles/Vol] 21 mmol/L Normal 20-31 [facility] Comment on above: Performed By: #### L IP, CDP, CP #### [facility] [address] [place], [place] [id number] Black Leather Trimmer: Ion Jasso MD Creatinine [Mass/Vol] 0.8 mg/dL Normal 0.50-0.90 [facility] Comment on above: Performed By: #### L TORIBIO CDP, CP #### [facility] [address] [place], [facility] Black Leather Trimmer: Ion Jasso MD GFR/1.73 sq M.predicted among non-blacks MDRD (S/P/Bld) [Vol rate/Area] mL/min/{1.73_m2} Normal >60 [facility] Comment on above: Result Comment: These results [...] tubular secretion. Performed By: #### L IP, CDP, CP #### [facility] [address] [place] [address] Black Leather Trimmer: Ion Jasso MD Glucose [Mass/Vol] 91 mg/dL Normal 74-99 [facility] Comment on above: Performed By: #### L IP CDP, CP #### [facility] [address] [place] [address] Black Leather Trimmer: Ion Jasso MD Potassium [Moles/Vol] 4.2 mmol/L Normal 3.7-5.3 [facility] Comment on above: Result Comment: Spec imen hemolysis has exceeded the interference as defined by Joycelyn. Value may be falsely increased. Suggest recollection if clinically indicated. Performed By: #### L IP CDP, CP #### [facility] [address] [place] [address] Black Leather Trimmer: Ion Jasso MD Protein [Mass/Vol] 7.5 g/dL Normal 6.6-8.7 [facility] Comment on above: Performed By: #### L WALTER ROONEY, CP #### [facility] [address] [place] [address] [place] [address] Black Leather Trimmer: Ion Jasso MD Sodium [Moles/Vol] 139 mmol/L Normal 136-145 [facility] Comment on above: Performed By: #### L WALTER ROONEY, CP #### [address] [place] [address] Black Leather Trimmer: Ion Jasso MD Urea nitrogen [Mass/Vol] 8 mg/dL Normal 6-20 [facility] Comment on above: Performed By: #### L TORIBIO CDP, CP #### [facility] [address] [place] [address] [place] [address] Black Leather Trimmer: Ion Jasso MD Comprehensive Metabolic Pane [facility] 09-27-2024 Albumin [Mass/Vol] 4.6 g/dL 3.5 - 5.2 g/dL [facility] Albumin/Globulin [Mass ratio] 1.6 {ratio} 1.0 - 2.5 [facility] ALP [Catalytic activity/Vol] 145 U/L High 35 - 104 U/L [facility] ALT [Catalytic activity/Vol] 12 U/L 10 - 35 U/L [facility] Anion gap [Moles/Vol] 15 mmol/L 9 - 16 mmol/L [facility] AST [Catalytic activity/Vol] 24 U/L 10 - 35 U/L [facility] Bilirubin [Mass/Vol] 0.3 mg/dL 0.00 - 1.20 mg/dL [facility] Calcium [Mass/Vol] 10.1 mg/dL 8.6 - 10. 4 mg/dL [facility] Chloride [Moles/Vol] 103 mmol/L 98 - 10 7 mmol/L [facility] CO2 [Moles/Vol] 21 mmol/L 20 - 31 mmol/L [facility] Creatinine [Mass/Vol] 0.8 mg/dL 0.50 - 0.90 mg/dL [facility] Kaylyn Prather Rate - PINF [facility] Comment on above: These results are not [...] [Mass/Vol] 91 mg/dL 74 - 99 mg/dL [facility] Interpretation and review of laboratory results Abnormal [facility] Potassium [Moles/Vol] 4.2 mmol/L 3.7 - 5.3 mmol/L [facility] Comment on above: Specimen hemolysis h as exceeded the interference as defined by Joycelyn. Value may be falsely increased. Suggest recollection if clinically indicated. Protein [Mass/Vol] 7.5 g/dL 6.6 - 8.7 g/dL [facility] Sodium [Moles/Vol] 139 mmol/L 136 - 145 mmol/L [facility] Urea nitrogen [Mass/Vol] 8 mg/dL 6 - 20 mg/dL [facility] Urea nitrogen/Creatinine [Mass ratio] 10 mg/mg 9 - 20 [facility] Lactic Acidon 09-27-2024 Lactate (BldV) [Moles/Vol] 1.0 mmol/L 0.5 - 2.2 mmol/L [facility] Lactate [Moles/Vol] 1.0 mmol/L Normal 0.5-2.2 [facility] Comment on above: Performed By: #### L WALTER ROONEY, CP #### [facility] [address] [place] [address] Black Leather Trimmer: Ion Jasso MD Lipaseon 09-27-2024 Lipase [Catalytic activity/Vol] 48 U/L 13 - 60 U/L [facility] Lipase [Catalytic activity/Vol] 48 U/L Normal 13-60 [facility] Comment on above: Performed By: #### L WALTER ROONEY, CP #### [facility] [address] [place] [address] Black Leather Trimmer: Ion Jasso MD No Panel Informationon 09-27 [facility] CBC with Auto Differentialon 09-20-2024 Basophils (Bld) [#/Vol] 0.06 10*3/uL [facility] Basophils/100 WBC (Bld) 1 % 0 - 2 % [facility] Eosinophils (Bld) [#/Vol] 0.17 10*3/uL [facility] Eosinophils/100 WBC (Bld) 2 % 1 - 4 % [facility] Erythrocyte distribution width (RBC) [Ratio] 13.1 % 11.8 - 14.4 % [facility] Hematocrit (Bld) [Volume fraction] 42 % 36.3 - 47.1 % [facility] Hemoglobin (Bld) [Mass/Vol] 14.4 g/dL 11.9 - 15.1 g/dL [facility] Immature granulocytes (Bld) [#/Vol] 0.03 10*3/uL [facility] Immature granulocytes/100 WBC (Bld) 0 % 0 [facility] Lymphocytes/100 WBC (Bld) 28 % 24 - 43 % [facility] Lymphocytes/100 WBC (Bld) 2.98 % [facility] MCH (RBC) [Entitic mass] 33.3 pg 25.2 - 33.5 pg [facility] MCHC (RBC) [Mass/Vol] 34.3 g/dL 28.4 - 34.8 g/dL [facility] MCV (RBC) [Entitic vol] 97.2 fL 82.6 - 102.9 fL [facility] Monocytes/100 WBC (Bld) 9 % 3 - 12 % [facility] Monocytes/100 WBC (Bld) 0.96 % [facility] Neutrophils/100 WBC (Bld) 60 % 36 - 65 % [facility] Nucleated RBC/100 WBC (Bld) [Ratio] 0 % 0.0 per 100 WBC [facility] Platelet mean volume (Bld) [Entitic vol] 9.7 fL 8.1 - 13.5 fL [facility] Platelets (Bld) [#/Vol] 258 10*3/uL [facility] RBC (Bld) [#/Vol] 4.32 10*6/uL 3.95 - 5.11 m/uL [facility] Segmented neutrophils/100 WBC (Bld) 6.53 % [facility] WBC other (Bld) [#/Vol] 10.7 [facility] CBC with Diffon 09-20-2024 Abs. Basophil 0.06 k/uL Normal 0.00-0.20 [facility] Comment on above: Performed By: #### L HARITHA ROONEY, CDP #### [facility] [address] [place] [address] [place] [address] Black Leather Trimmer: Ion Jasso MD Abs.Imm.Granulocyte 0.03 k/uL Normal 0.00-0.30 [facility] Comment on above: Performed By: #### L HARITHA ROONEY, CDP #### [facility] [address] [place] [address] [place] [address] Black Leather Trimmer: Ion Jasso MD Abs.Neutrophil (Seg) 6.53 k/uL Normal 1.50-8.10 [facility] Comment on above: Performed By: #### L IP, CP, CDP #### [address] [place], [facility] Black Leather Trimmer: Ion Jasso MD Basophils/100 WBC (Bld) 1 % Normal 0-2 [facility] Comment on above: Performed By: #### L IP, CP, CDP #### [address] [place], [facility] Black Leather Trimmer: Ion Jasso MD Eosinophils (Bld) [#/Vol] 0.17 10*3/uL Normal 0.00-0.44 [facility] Comment on above: Performed By: #### L IP, CP, CDP #### [address] [place] [id number] Black Leather Trimmer: Ion Jasso MD Eosinophils/100 WBC (Bld) 2 % Normal 1-4 [facility] Comment on above: Performed By: #### L IP, CP, CDP #### [address] [place] [address] Black Leather Trimmer: Ion Jasso MD Erythrocyte distribution width (RBC) [Ratio] 13.1 % Normal 11.8-14.4 [facility] Comment on above: Performed By: #### L IP, CP, CDP #### [address] [place] [id number] Black Leather Trimmer: Ion Jasso MD Hematocrit (Bld) [Volume fraction] 42.0 % Normal 36.3-47.1 [facility] Comment on above: Performed By: #### L IP, CP, CDP #### [address] [place] [id number] Black Leather Trimmer: Ion Jasso MD Hemoglobin (Bld) [Mass/Vol] 14.4 g/dL Normal 11.9-15.1 [facility] Comment on above: Performed By: #### L IP, CP, CDP #### [facility] [address] [place], [place] [id number] Black Leather Trimmer: Ion Jasso MD Immature granulocytes/100 WBC (Bld) 0 % Normal 0 [facility] Comment on above: Performed By: #### L IP, CP, CDP #### [address] [place], [place] 2019883 Black Leather Trimmer: Ion Jasso MD Lymphocytes (Bld) [#/Vol] 2.98 10*3/uL Normal 1.10-3.70 [facility] Comment on above: Performed By: #### L IP, CP, CDP #### [address] [place], [place] 3303983 Black Leather Trimmer: Ion Jasso MD Lymphocytes/100 WBC (Bld) 28 % Normal 24-43 [facility] Comment on above: Performed By: #### L IP, CP, CDP #### [address] [place], [facility] Black Leather Trimmer: Ion Jasso MD MCH (RBC) [Entitic mass] 33.3 pg Normal 25.2-33.5 [facility] Comment on above: Performed By: #### L IP, CP, CDP #### [address] [place], [place] [id number] Black Leather Trimmer: Ion Jasso MD MCHC (RBC) [Mass/Vol] 34.3 g/dL Normal 28.4-34.8 [facility] Comment on above: Performed By: #### L IP, CP, CDP #### [address] [place], [place] [id number] Black Leather Trimmer: Ion Jasso MD MCV (RBC) [Entitic vol] 97.2 fL Normal 82.6-102.9 [facility] Comment on above: Performed By: #### L IP, CP, CDP #### [address] [place], [facility] Black Leather Trimmer: Ion Jasso MD Monocytes (Bld) [#/Vol] 0.96 10*3/uL Normal 0.10-1.20 [facility] Comment on above: Performed By: #### L IP, CP, CDP #### [facility] [address] [place] [address] Dr. [place], [facility] Black Leather Trimmer: Ion Jasso MD Monocytes/100 WBC (Bld) 9 % Normal 3-12 [facility] Comment on above: Performed By: #### L IP, CP, CDP #### [address] [place], [place] [address] Black Leather Trimmer: Ion Jasso MD Neutrophil (Seg) 60 % Normal 36-65 [facility] Comment on above: Performed By: #### L IP, CP, CDP #### [address] [place], [facility] Black Leather Trimmer: Ion Jasso MD NRBC Automated 0.0 per 100 WBC Normal 0.0 [facility] Comment on above: Performed By: #### L IP, CP, CDP #### [address] [place], [facility] Black Leather Trimmer: Ion Jasso MD Platelet mean volume (Bld) [Entitic vol] 9.7 fL Normal 8.1-13.5 [facility] Comment on above: Performed By: #### L IP, CP, CDP #### [facility] [address] [place] [address] Dr. [place], [facility] Black Leather Trimmer: Ion Jasso MD Platelets (Bld) [#/Vol] 258 10*3/uL Normal 138-453 [facility] Comment on above: Performed By: #### L IP, CP, CDP #### [address] [place], [facility] Black Leather Trimmer: Ion Jasso MD RBC (Bld) [#/Vol] 4.32 10*6/uL Normal 3.95-5.11 [facility] Comment on above: Performed By: #### L TORIBIO CP, CDP #### [facility] [address] [place], [place] [id number] Black Leather Trimmer: Ion Jasso MD WBC (Bld) [#/Vol] 10.7 10*3/uL Normal 3.5-11.3 [facility] Comment on above: Performed By: #### L IP, CP, CDP #### [facility] [address] [place], [place] [id number] Black Leather Trimmer: Ion Jasso MD Comp Metabolic Profon 2024 Albumin [Mass/Vol] 4.4 g/dL Normal 3.5-5.2 [facility] Comment on above: Performed By: #### L HARITHA ROONEY, CDP #### [address] [place], [place] 4672883 Black Leather Trimmer: Ion Jasso MD Albumin/Glob Ratio 1.8 Normal 1.0-2.5 [facility] Comment on above: Performed By: #### L HARITHA ROONEY, CDP #### [address] [place], [place] 8993083 Black Leather Trimmer: Ion Jasso MD Alkaline Phos 127 U/L High 35-104 [facility] Comment on above: Performed By: #### L TORIBIO CP, CDP #### [facility] [address] [place], [place] 833[address]83 Black Leather Trimmer: Ion Jasso MD ALT [Catalytic activity/Vol] 10 U/L Normal 10-35 [facility] Comment on above: Performed By: #### L IP CP, CDP #### [facility] [address] [place], [place] [phone] Black Leather Trimmer: Ion Jasso MD Anion gap [Moles/Vol] 12 mmol/L Normal 9-16 [facility] Comment on above: Performed By: #### L IP, CP, CDP #### [facility] [address] [place], [place] 0242783 Black Leather Trimmer: Ion Jasso MD AST [Catalytic activity/Vol] 19 U/L Normal 10-35 [facility] Comment on above: Performed By: #### L IP, CP, CDP #### [facility] [address] [place], [place] [phone] Black Leather Trimmer: Ion Jasso MD Bilirubin [Mass/Vol] mg/dL Normal 0.00-1.20 [facility] Comment on above: Performed By: #### L IP, CP, CDP #### [facility] [address] [place], [place] 7786483 Black Leather Trimmer: Ion Jasso MD BUN/CRE Ratio 9 Normal 9-20 [facility] Comment on above: Performed By: #### L IP, CP, CDP #### [facility] [address] [place] [address] Dr. [place], [place] 0171383 Black Leather Trimmer: Ion Jasso MD Calcium [Mass/Vol] 9.6 mg/dL Normal 8.6-10.4 [facility] Comment on above: Performed By: #### L IP, CP, CDP #### [address] [place], [place] 6452083 Black Leather Trimmer: Ion Jasso MD Chloride [Moles/Vol] 105 mmol/L Normal 98-107 [facility] Comment on above: Performed By: #### L IP, CP, CDP #### [facility] [address] [place], [place] [phone] Black Leather Trimmer: Ion Jasso MD CO2 [Moles/Vol] 23 mmol/L Normal 20-31 [facility] Comment on above: Performed By: #### L IP, CP, CDP #### [facility] [address] [place] [address] Black Leather Trimmer: Ion Jasso MD Creatinine [Mass/Vol] 0.9 mg/dL Normal 0.50-0.90 [facility] Comment on above: Performed By: #### L TORIBIO CP, CDP #### [address] [place] [address] Black Leather Trimmer: Ion Jasso MD GFR/1.73 sq M.predicted among non-blacks MDRD (S/P/Bld) [Vol rate/Area] 77 mL/min/{1.73_m2} Normal >60 [facility] Comment on above: Result Comment: These results [...] renal tubular secretion. Performed By: #### L IP CP, CDP #### [address] [place] [address] Black Leather Trimmer: Ion Jasso MD Glucose [Mass/Vol] 97 mg/dL Normal 74-99 [facility] Comment on above: Performed By: #### L TORIBIO CP, CDP #### [address] [place] [address] Black Leather Trimmer: Ion Jasso MD Potassium [Moles/Vol] 4.4 mmol/L Normal 3.7-5.3 [facility] Comment on above: Performed By: #### L IP CP, CDP #### [address] [place] [address] Black Leather Trimmer: Ion Jasso MD Protein [Mass/Vol] 6.8 g/dL Normal 6.6-8.7 [facility] Comment on above: Performed By: #### L IP, CP, CDP #### [facility] [address] [place], [place] 2017583 Black Leather Trimmer: Ion Jasso MD Sodium [Moles/Vol] 140 mmol/L Normal 136-145 [facility] Comment on above: Performed By: #### L IP, CP, CDP #### [facility] [address] [place], [place] 0223383 Black Leather Trimmer: Ion Jasso MD Urea nitrogen [Mass/Vol] 8 mg/dL Normal 6-20 [facility] Comment on above: Performed By: #### L TORIBIO, HARITHA, CDP #### [facility] [address] [place] [address] Black Leather Trimmer: Ion Jasso MD Comprehensive Metabolic Pane [facility] 09-20-2024 Albumin [Mass/Vol] 4.4 g/dL 3.5 - 5.2 g/dL [facility] Albumin/Globulin [Mass ratio] 1.8 {ratio} 1.0 - 2.5 [facility] ALP [Catalytic activity/Vol] 127 U/L High 35 - 104 U/L [facility] ALT [Catalytic activity/Vol] 10 U/L 10 - 35 U/L [facility] Anion gap [Moles/Vol] 12 mmol/L 9 - 16 mmol/L [facility] AST [Catalytic activity/Vol] 19 U/L 10 - 35 U/L [facility] Bilirubin [Mass/Vol] mg/dL 0.00 - 1.20 mg/dL [facility] Calcium [Mass/Vol] 9.6 mg/dL 8.6 - 10. 4 mg/dL [facility] Chloride [Moles/Vol] 105 mmol/L 98 - 10 7 mmol/L [facility] CO2 [Moles/Vol] 23 mmol/L 20 - 31 mmol/L [facility] Creatinine [Mass/Vol] 0.9 mg/dL 0.50 - 0.90 mg/dL [facility] Est, Glom Filt Rate 77 - PINF [facility] Comment on above: These results are not [...] [Mass/Vol] 97 mg/dL 74 - 99 mg/dL [facility] Potassium [Moles/Vol] 4.4 mmol/L 3.7 - 5.3 mmol/L [facility] Protein [Mass/Vol] 6.8 g/dL 6.6 - 8.7 g/dL [facility] Sodium [Moles/Vol] 140 mmol/L 136 - 145 mmol/L [facility] Urea nitrogen [Mass/Vol] 8 mg/dL 6 - 20 mg/dL [facility] Urea nitrogen/Creatinine [Mass ratio] 9 mg/mg 9 - 20 [facility] Lactic Acidon 09-20-2024 Lactate (BldV) [Moles/Vol] 1.2 mmol/L 0.5 - 2.2 mmol/L [facility] Lactate [Moles/Vol] 1.2 mmol/L Normal 0.5-2.2 [facility] Comment on above: Performed By: #### L WALTER ROONEY, CP #### [facility] [address] [place] [address] Black Leather Trimmer: Ion Jasso MD Lipaseon 09-20-2024 Lipase [Catalytic activity/Vol] 89 U/L High 13 - 60 U/L [facility] Lipase [Catalytic activity/Vol] 89 U/L High 13-60 [facility] Comment on above: Performed By: #### L HARITHA ROONEY, WALTER #### [facility] [address] [place] [address] Black Leather Trimmer: Ion Jasso MD No Panel Informationon 09-20 Interpretation and review of laboratory results Abnormal [facility] Urinalysis w/ Microon 2024 Bacteria 2+ Abnormal NONE [facility] Comment on above: Performed By: #### U AMIC #### [facility] [address] [place], [facility] Black Leather Trimmer: Ion Jasso MD Bilirubin, SemiQt,Ur Negative Normal NEG [facility] Comment on above: Performed By: #### U AMIC #### [facility] [address] [place], [place] [phone] Black Leather Trimmer: Ion Jasso MD Blood, Urine Negative Normal NEG [facility] Comment on above: Performed By: #### U AMIC #### [facility] [address] [place] [address] Dr. [place], [place] [id number] Black Leather Trimmer: Ion Jasso MD Clarity (U) Clear Normal CLEAR [facility] Comment on above: Performed By: #### U AMIC #### [facility] [address] [place], [facility] Black Leather Trimmer: Ion Jasso MD Color (U) Yellow Normal YEL [facility] Comment on above: Performed By: #### U AMIC #### [facility] [address] [place] [address] Dr. [place], [facility] Black Leather Trimmer: Ion Jasso MD Epithelial cells LM Ql (Urine sed) 2 TO 5 Normal 0-25 [facility] Comment on above: Performed By: #### U AMIC #### [facility] [address] [place], [place] [id number] Black Leather Trimmer: Ion Jasso MD Glucose Ql (U) Negative Normal NEG [facility] Comment on above: Performed By: #### U AMIC #### [facility] [address] [place] [address] [place] [address] Black Leather Trimmer: Ion Jasso MD Ketones Ql (U) Negative Normal NEG [facility] Comment on above: Performed By: #### U AMIC #### [facility] [address] [place], [place] [phone] Black Leather Trimmer: Ion Jasso MD Leukocyte esterase Test strip Ql (U) Negative Normal NEG [facility] Comment on above: Performed By: #### U AMIC #### [facility] [address] [place], [place] [id number] Black Leather Trimmer: Ion Jasso MD Nitrite,Ur Negative Normal NEG [facility] Comment on above: Performed By: #### U AMIC #### [facility] [address] [place], [place] 6[address]83 Black Leather Trimmer: Ion Jasso MD PH,Ur 6.0 Normal 5.0-9.0 [facility] Comment on above: Performed By: #### U AMIC #### [address] [place], [place] [address]187483 Black Leather Trimmer: Ion Jasso MD Protein Ql (U) Negative Normal NEG [facility] Comment on above: Performed By: #### U AMIC #### [address] [place], [place] 739[address]83 Black Leather Trimmer: Ion Jasso MD Spec. [place],Ur >1.030 High 1.010-1.02 0 [facility] Comment on above: Performed By: #### U AMIC #### [facility] [address] [place] [address] Dr. [place], [place] [id number] Black Leather Trimmer: Ion Jasso MD Urine RBC's None Normal 0-2 [facility] Comment on above: Performed By: #### U AMIC #### [facility] [address] [place] [address] Dr. [place], [place] [id number] Black Leather Trimmer: Ion Jasso MD Urine WBC's None Normal 0-5 [facility] Comment on above: Performed By: #### U AMIC #### [facility] [address] [place] [address] Black Leather Trimmer: Ion Jasso MD Urobilinogen,Ur Normal Normal 0.0-1.0 [facility] Comment on above: Performed By: #### U [facility] #### [facility] [address] [place] [address] Black Leather Trimmer: Ion Jasso MD Urinalysis with Microscopico n 09-20-2024 Bacteria LM Ql (Urine sed) 2+ Abnormal None [facility] Bilirubin Ql (U) Negative NEGATIVE [facility] Clarity (U) Clear Clear [facility] Color (U) Yellow Yellow [facility] Epithelial cells LM.HPF (Urine sed) [#/Area] 2 TO 5 [facility] Glucose Test strip (U) [Mass/Vol] Negative NEGATIVE mg/dL [facility] Hemoglobin Auto test strip Ql (U) Negative NEGATIVE [facility] Interpretation and review of laboratory results Abnormal [facility] Ketones (U) [Mass/Vol] Negative NEGAT MATTHIAS mg/dL [facility] Leukocyte esterase Test strip Ql (U) Negative NEGATIVE [facility] Nitrite Ql (U) Negative NEGATIVE [place] [facility] pH (U) 6 [pH] 5.0 - 9.0 [facility] Protein (U) [Mass/Vol] Negative NEGAT MATTHIAS mg/dL [facility] RBC LM.HPF (Urine sed) [#/Area] None [facility] Specific gravity (U) [Rel density] High 1.010 - 1.020 [facility] Urobilinogen Qn (U) Normal 0.0 - 1. 0 EU/dL [facility] WBC LM.HPF (Urine sed) [#/Area] None [facility] CT ABDOMEN AND PELVIS W CONT on [...] Dasilva MD on 09/19/2024 1:15 AM Normal [facility] POCT NURSING URINE MACROSCOP IC UAon 09-19-2024 BILIRUBIN JERE Negative Normal Negative [facility] Comment on above: Performed By: #### 8 9579-7, 37327-1, 5643-2, 36477-0, LIVR, 3040-3, CBCA, BMP #### [facility] ([id number]) [address] [place] [address] 65407 BLOOD/HGB JERE Negative Normal Negative [facility] Comment on above: Performed By: #### 8 9579-7, 98579-1, 5643-2, 87059-5, LIVR, 3040-3, CBCA, BMP #### [facility] ([id number]) [address] [place] [address] 35973 GLUCOSE JERE Negative Normal Negative [facility] Comment on above: Performed By: #### 8 9579-7, 64463-3, 5643-2, 19636-4, LIVR, 3040-3, CBCA, BMP #### [facility] ([id number]) [address] [place] [address] 63680 KETONES JERE Negative Normal Negative [facility] Comment on above: Performed By: #### 8 9579-7, 30618-0, 5643-2, 62338-1, LIVR, 3040-3, CBCA, BMP #### [facility] ([id number]) [address] [place] [address] 68458 LEUKOCYTE ESTERASE JERE Negative Normal Negative [facility] Comment on above: Performed By: #### 8 9579-7, 12783-2, 5643-2, 52813-3, LIVR, 3040-3, CBCA, BMP #### [facility] ([id number]) [address] [place] [address] 65516 NITRITE JERE Negative Normal Negative [facility] Comment on above: Performed By: #### 8 9579-7, 55305-2, 5643-2, 55080-5, LIVR, 3040-3, CBCA, BMP #### [facility] ([id number]) [address] [place] [address] 67815 PH JERE 5.5 Normal 5.0, 6.0, 6.5, 7.0, 7.5, 8.0, 8.5, 5.5 [facility] Comment on above: Performed By: #### 8 9579-7, 48972-7, 5643-2, 10723-7, LIVR, 3040-3, CBCA, BMP #### [facility] ([id number]) [address] [place] [address] 65303 PROTEIN JERE Negative Normal Negative [facility] Comment on above: Performed By: #### 8 9579-7, 27015-6, 5643-2, 78805-2, LIVR, 3040-3, CBCA, BMP #### [facility] ([id number]) [address] [place] [address] 05188 SPECIFIC GRAVITY JERE 1.025 Normal 1.010, 1.015, 1.020, 1.025 [facility] Comment on above: Performed By: #### 8 9579-7, 86203-3, 5643-2, 62192-6, LIVR, 3040-3, CBCA, BMP #### [facility] ([id number]) [address] [place] [address] 52404 UROBILINOGEN JERE 0.2 E.U./dL Normal [facility] Comment on above: Performed By: #### 8 9579-7, 88819-6, 5643-2, 92782-4, LIVR, 3040-3, CBCA, BMP #### [facility] ([id number]) [address] [place] [address] 90553 APTTon 09-18-2024 aPTT Coag (Bld) [Time] 26 s Normal 26-37 [facility] Comment on above: Performed By: #### 8 9579-7, 53364-7, 5643-2, 53385-0, LIVR, 3040-3, CBCA, BMP #### [facility] ([id number]) [address] [place] [address] 50127 BASIC METABOLIC PANELon 09-06 Anion gap [Moles/Vol] 6 mmol/L Normal 5-15 [facility] Comment on above: Performed By: #### 8 9579-7, 31032-8, 5643-2, 10694-8, LIVR, 3040-3, CBCA, BMP #### [facility] ([id number]) [address] [place] [address] 18943 Calcium [Mass/Vol] 9.8 mg/dL Normal 8.5-10.5 [facility] Comment on above: Performed By: #### 8 9579-7, 46083-5, 5643-2, 49107-1, LIVR, 3040-3, CBCA, BMP #### [facility] ([id number]) [address] [place] [address] 44607 Chloride [Moles/Vol] 106 mmol/L Normal 98-109 [facility] Comment on above: Performed By: #### 8 9579-7, 26738-4, 5643-2, 12023-9, LIVR, 3040-3, CBCA, BMP #### [facility] ([id number]) [address] [place] [address] 22258 CO2 [Moles/Vol] 27 mmol/L Normal 22-32 [facility] Comment on above: Performed By: #### 8 9579-7, 95195-2, 5643-2, 95382-8, LIVR, 3040-3, CBCA, BMP #### [facility] ([id number]) [address] [place] [address] 00071 Creatinine [Mass/Vol] 0.91 mg/dL Normal 0.40-1.00 [facility] Comment on above: Result Comment: METH OD TRACEABLE TO IDMS STANDARD Performed By: #### 8 9579-7, 18790-1, 5643-2, 77855-7, LIVR, 3040-3, CBCA, BMP #### [facility] ([id number]) [address] [place] [address] 29608 GFR/1.73 sq M.predicted among non-blacks MDRD (S/P/Bld) [Vol rate/Area] 75 mL/min/{1.73_m2} Normal >=60 [facility] Comment on above: Result Comment: eGFR not reported due to non-numeric value for Creatinine. Reported eGFR is based on the CKD-EPI 2021 equation that does not use a race coefficient. Performed By: #### 8 9579-7, 54836-6, 5643-2, 43375-9, LIVR, 3040-3, CBCA, BMP #### [facility] ([id number]) [address] [place] [address] 61924 Glucose [Mass/Vol] 76 mg/dL Normal 65-99 [facility] Comment on above: Performed By: #### 8 9579-7, 99311-6, 5643-2, 58998-5, LIVR, 3040-3, CBCA, BMP #### [facility] ([id number]) [address] [place] [address] 09381 Potassium [Moles/Vol] 3.5 mmol/L Normal 3.5-5.0 [facility] Comment on above: Performed By: #### 8 9579-7, 63349-9, 5643-2, 64636-9, LIVR, 3040-3, CBCA, BMP #### [facility] ([id number]) [address] [place] [address] 99644 Sodium [Moles/Vol] 139 mmol/L Normal 134-146 [facility] Comment on above: Performed By: #### 8 9579-7, 42909-5, 5643-2, 92704-2, LIVR, 3040-3, CBCA, BMP #### [facility] ([id number]) [address] [place] [address] 72844 Urea nitrogen [Mass/Vol] 10 mg/dL Normal 5-23 [facility] Comment on above: Performed By: #### 8 9579-7, 20736-8, 5643-2, 03947-7, LIVR, 3040-3, CBCA, BMP #### [facility] ([id number]) [address] [place] [address] 98982 CBC WITH AUTO DIFFERENTIALon 09-18-2024 BASOPHILS ABSOLUTE COUNT (10*3/UL) BY AUTOMATED COUNT 0.1 10*3/uL Normal 0.0-0.2 [facility] Comment on above: Performed By: #### 8 9579-7, 10383-3, 5643-2, 65756-7, LIVR, 3040-3, CBCA, BMP #### [facility] ([id number]) [address] [place] [address] 95120 BASOPHILS RELATIVE PERCENT BY AUTOMATED COUNT 0.7 % Normal [facility] Comment on above: Performed By: #### 8 9579-7, 11238-4, 5643-2, 06662-6, LIVR, 3040-3, CBCA, BMP #### [facility] ([id number]) [address] [place] [address] 62082 CELLAVISION DIFFERENTIAL TYPE AUTOMATED DIFFERENTIAL Normal [facility] Comment on above: Performed By: #### 8 9579-7, 73743-1, 5643-2, 58889-1, LIVR, 3040-3, CBCA, BMP #### [facility] ([id number]) [address] [place] [address] 36127 Eosinophils (Bld) [#/Vol] 0.2 10*3/uL Normal 0.0-0.4 [facility] Comment on above: Performed By: #### 8 9579-7, 37637-0, 5643-2, 49299-7, LIVR, 3040-3, CBCA, BMP #### [facility] ([id number]) [address] [place] [address] 33460 EOSINOPHILS RELATIVE PERCENT BY AUTOMATED COUNT 1.5 % Normal [facility] Comment on above: Performed By: #### 8 9579-7, 48064-7, 5643-2, 35305-5, LIVR, 3040-3, CBCA, BMP #### [facility] ([id number]) [address] [place] [address] 62978 Erythrocyte distribution width (RBC) [Ratio] 13.7 % Normal 11.5-15 [facility] Comment on above: Performed By: #### 8 9579-7, 94476-5, 5643-2, 86855-1, LIVR, 3040-3, CBCA, BMP #### [facility] ([id number]) [address] [place] [address] 45339 Hematocrit (Bld) [Volume fraction] 42.3 % Normal 35-47 [facility] Comment on above: Performed By: #### 8 9579-7, 30303-1, 5643-2, 35260-3, LIVR, 3040-3, CBCA, BMP #### [facility] ([id number]) [address] [place] [address] 52192 Hemoglobin (Bld) [Mass/Vol] 14.8 g/dL Normal 11.7-15.5 [facility] Comment on above: Performed By: #### 8 9579-7, 84967-2, 5643-2, 66786-6, LIVR, 3040-3, CBCA, BMP #### [facility] ([id number]) [address] [place] [address] 91116 LYMPHOCYTES ABSOLUTE COUNT (10*3/UL) BY AUTOMATED COUNT 2.8 10*3/uL Normal 1.0-3.5 [facility] Comment on above: Performed By: #### 8 9579-7, 40264-8, 5643-2, 82334-9, LIVR, 3040-3, CBCA, BMP #### [facility] ([id number]) [address] [place] [address] 70860 LYMPHOCYTES RELATIVE PERCENT BY AUTOMATED COUNT 26.7 % Normal [facility] Comment on above: Performed By: #### 8 9579-7, 51847-5, 5643-2, 78591-0, LIVR, 3040-3, CBCA, BMP #### [facility] ([id number]) [address] [place] [address] 66231 MCH (RBC) [Entitic mass] 33.4 pg Normal 27-34 [facility] Comment on above: Performed By: #### 8 9579-7, 21295-0, 5643-2, 09616-1, LIVR, 3040-3, CBCA, BMP #### [facility] ([id number]) [address] [place] [address] 37633 MCHC (RBC) [Mass/Vol] 34.9 g/dL Normal 32-36 [facility] Comment on above: Performed By: #### 8 9579-7, 59133-2, 5643-2, 66840-7, LIVR, 3040-3, CBCA, BMP #### [facility] ([id number]) [address] [place] [address] 04469 MCV (RBC) [Entitic vol] 96 fL Normal 80-100 [facility] Comment on above: Performed By: #### 8 9579-7, 29632-2, 5643-2, 73551-7, LIVR, 3040-3, CBCA, BMP #### [facility] ([id number]) [address] [place] [address] 83896 MONOCYTES ABSOLUTE COUNT (10*3/UL) BY AUTOMATED COUNT 0.9 10*3/uL Normal 0.0-0.9 [facility] Comment on above: Performed By: #### 8 9579-7, 13615-8, 5643-2, 59193-7, LIVR, 3040-3, CBCA, BMP #### [facility] ([id number]) [address] [place] [address] 28224 MONOCYTES RELATIVE PERCENT BY AUTOMATED COUNT 8.8 % Normal [facility] Comment on above: Performed By: #### 8 9579-7, 69693-4, 5643-2, 87664-2, LIVR, 3040-3, CBCA, BMP #### [facility] ([id number]) [address] [place] [address] 51268 NEUTROPHILS ABSOLUTE COUNT BY AUTOMATED COUNT 6.6 10*3/uL Normal 1.5-6.6 [facility] Comment on above: Performed By: #### 8 9579-7, 29917-1, 5643-2, 59375-7, LIVR, 3040-3, CBCA, BMP #### [facility] ([id number]) [address] [place] [address] 03796 NEUTROPHILS RELATIVE PERCENT BY AUTOMATED COUNT 62.3 % Normal [facility] Comment on above: Performed By: #### 8 9579-7, 02723-1, 5643-2, 76452-7, LIVR, 3040-3, CBCA, BMP #### [facility] ([id number]) [address] [place] [address] 65083 Platelet mean volume (Bld) [Entitic vol] 8.3 fL Normal 7-12 [facility] Comment on above: Performed By: #### 8 9579-7, 84577-6, 5643-2, 27626-2, LIVR, 3040-3, CBCA, BMP #### [facility] ([id number]) [address] [place] [address] 82437 Platelets (Bld) [#/Vol] 283 10*3/uL Normal 150-450 [facility] Comment on above: Performed By: #### 8 9579-7, 24425-4, 5643-2, 01660-0, LIVR, 3040-3, CBCA, BMP #### [facility] ([id number]) [address] [place] [address] 89160 RBC COUNT 4.43 X10E12/L Normal 3.8-5.2 [facility] Comment on above: Performed By: #### 8 9579-7, 57021-7, 5643-2, 79393-3, LIVR, 3040-3, CBCA, BMP #### [facility] ([id number]) [address] [place] [address] 53847 WBC (Bld) [#/Vol] 10.5 10*3/uL Normal 4-11 [facility] Comment on above: Performed By: #### 8 9579-7, 93055-6, 5643-2, 33292-3, LIVR, 3040-3, CBCA, BMP #### [facility] ([id number]) [address] [place] [address] 24763 ETHANOLon 09-18-2024 Ethanol [Mass/Vol] mg/dL Normal <=0.080 [facility] Comment on above: Result Comment: This report is intended for use in clinical monitoring or management of patients. Performed By: #### 8 9579-7, 91316-1, 5643-2, 87220-2, LIVR, 3040-3, CBCA, BMP #### [facility] ([id number]) [address] [place] [address] 37493 LIPASEon 09-18-2024 Lipase [Catalytic activity/Vol] 187 U/L High 17-40 [facility] Comment on above: Performed By: #### 8 9579-7, 18238-6, 5643-2, 17357-5, LIVR, 3040-3, CBCA, BMP #### [facility] ([id number]) [address] [place] [address] 37664 LIVER PANELon 09-18-2024 Albumin [Mass/Vol] 4.3 g/dL Normal 3.2-5.3 [facility] Comment on above: Performed By: #### 8 9579-7, 06909-6, 5643-2, 58104-9, LIVR, 3040-3, CBCA, BMP #### [facility] ([id number]) [address] [place] [address] 72942 ALP [Catalytic activity/Vol] 127 U/L Normal 39-130 [facility] Comment on above: Performed By: #### 8 9579-7, 88793-8, 5643-2, 68506-4, LIVR, 3040-3, CBCA, BMP #### [facility] ([id number]) [address] [place] [address] 10965 ALT [Catalytic activity/Vol] 13 U/L Normal <=31 [facility] Comment on above: Performed By: #### 8 9579-7, 28837-8, 5643-2, 40300-8, LIVR, 3040-3, CBCA, BMP #### [facility] ([id number]) [address] [place] [address] 15188 AST [Catalytic activity/Vol] 20 U/L Normal <=41 [facility] Comment on above: Performed By: #### 8 9579-7, 22085-0, 5643-2, 92666-1, LIVR, 3040-3, CBCA, BMP #### [facility] ([id number]) [address] [place] [address] 64390 Bilirubin [Mass/Vol] 0.3 mg/dL Normal 0.3-1.2 [facility] Comment on above: Performed By: #### 8 9579-7, 86717-9, 5643-2, 61812-4, LIVR, 3040-3, CBCA, BMP #### [facility] ([id number]) [address] [place] [address] 27344 Bilirubin.indirect [Mass/Vol] mg/dL Normal <=0.4 [facility] Comment on above: Performed By: #### 8 9579-7, 21393-1, 5643-2, 79084-7, LIVR, 3040-3, CBCA, BMP #### [facility] ([id number]) [address] [place] [address] 26392 Protein [Mass/Vol] 7.4 g/dL Normal 6.0-8.0 [facility] Comment on above: Performed By: #### 8 9579-7, 66443-1, 5643-2, 85807-6, LIVR, 3040-3, CBCA, BMP #### [facility] ([id number]) [address] [place] [address] 13494 MAGNESIUMon 09-18-2024 Magnesium [Mass/Vol] 2.4 mg/dL Normal 1.8-2.6 [facility] Comment on above: Performed By: #### 8 9579-7, 42084-0, 5643-2, 51314-7, LIVR, 3040-3, CBCA, BMP #### [facility] ([id number]) [address] [place] [address] 86830 PROTIME AND INRon 09-18-2024 INR 1.0 Normal 0.9-1.2 [facility] Comment on above: Performed By: #### 8 9579-7, 85138-7, 5643-2, 70734-1, LIVR, 3040-3, CBCA, BMP #### [facility] ([id number]) [address] [place] [address] 24715 PT Coag (PPP) [Time] 10.9 s Normal 9.8-13.2 [facility] Comment on above: Performed By: #### 8 9579-7, 20627-8, 5643-2, 55388-3, LIVR, 3040-3, CBCA, BMP #### [facility] ([id number]) [address] [place] [address] 84317 TROP I, HIGH SENSITIVITY 1 H OURon 09-18-2024 TROPONIN I, HIGH SENSITIVITY 2 ng/L Normal <16 [facility] Comment on above: Performed By: #### 8 9579-7, 35835-3, 5643-2, 55288-6, LIVR, 3040-3, CBCA, BMP #### [facility] ([id number]) [address] [place] [address] 59037 TROPONIN I, HIGH SENSITIVITY 0 HOURon 09-18-2024 TROPONIN I, HIGH SENSITIVITY 3 ng/L Normal <16 [facility] Comment on above: Performed By: #### 8 9579-7, 36928-1, 5643-2, 93316-8, LIVR, 3040-3, CBCA, BMP #### [facility] ([id number]) [address] [place] [address] 71835 CBC WITH AUTO DIFFERENTIALon 09-05-2024 BASOPHILS ABSOLUTE COUNT (10*3/UL) BY AUTOMATED COUNT 0.1 10*3/uL Normal 0.0-0.2 [facility] Comment on above: Performed By: #### 8 9579-7, 38571-5, 5643-2, 81130-4, LIVR, 3040-3, CBCA, BMP #### [facility] ([id number]) [address] [place] [address] 54255 BASOPHILS RELATIVE PERCENT BY AUTOMATED COUNT 1.1 % Normal [facility] Comment on above: Performed By: #### 8 9579-7, 98638-0, 5643-2, 84378-6, LIVR, 3040-3, CBCA, BMP #### [facility] ([id number]) [address] [place] [address] 20035 CELLAVISION DIFFERENTIAL TYPE AUTOMATED DIFFERENTIAL Normal [facility] Comment on above: Performed By: #### 8 9579-7, 21448-8, 5643-2, 98858-5, LIVR, 3040-3, CBCA, BMP #### [facility] ([id number]) [address] [place] [address] 42758 Eosinophils (Bld) [#/Vol] 0.2 10*3/uL Normal 0.0-0.4 [facility] Comment on above: Performed By: #### 8 9579-7, 37694-3, 5643-2, 54475-4, LIVR, 3040-3, CBCA, BMP #### [facility] ([id number]) [address] [place] [address] 36544 EOSINOPHILS RELATIVE PERCENT BY AUTOMATED COUNT 2.1 % Normal [facility] Comment on above: Performed By: #### 8 9579-7, 78726-5, 5643-2, 70866-4, LIVR, 3040-3, CBCA, BMP #### [facility] ([id number]) [address] [place] [address] 17429 Erythrocyte distribution width (RBC) [Ratio] 13.2 % Normal 11.5-15 [facility] Comment on above: Performed By: #### 8 9579-7, 02173-3, 5643-2, 59625-3, LIVR, 3040-3, CBCA, BMP #### [facility] ([id number]) [address] [place] [address] 56163 Hematocrit (Bld) [Volume fraction] 43.1 % Normal 35-47 [facility] Comment on above: Performed By: #### 8 9579-7, 70082-0, 5643-2, 06417-8, LIVR, 3040-3, CBCA, BMP #### [facility] ([id number]) [address] [place] [address] 20574 Hemoglobin (Bld) [Mass/Vol] 15.0 g/dL Normal 11.7-15.5 [facility] Comment on above: Performed By: #### 8 9579-7, 61336-5, 5643-2, 02934-2, LIVR, 3040-3, CBCA, BMP #### [facility] ([id number]) [address] [place] [address] 90946 LYMPHOCYTES ABSOLUTE COUNT (10*3/UL) BY AUTOMATED COUNT 3.4 10*3/uL Normal 1.0-3.5 [facility] Comment on above: Performed By: #### 8 9579-7, 44667-9, 5643-2, 43188-5, LIVR, 3040-3, CBCA, BMP #### [facility] ([id number]) [address] [place] [address] 55063 LYMPHOCYTES RELATIVE PERCENT BY AUTOMATED COUNT 35.0 % Normal [facility] Comment on above: Performed By: #### 8 9579-7, 14263-5, 5643-2, 02739-4, LIVR, 3040-3, CBCA, BMP #### [facility] ([id number]) [address] [place] [address] 67593 MCH (RBC) [Entitic mass] 33.8 pg Normal 27-34 [facility] Comment on above: Performed By: #### 8 9579-7, 04539-4, 5643-2, 64823-1, LIVR, 3040-3, CBCA, BMP #### [facility] ([id number]) [address] [place] [address] 05547 MCHC (RBC) [Mass/Vol] 34.8 g/dL Normal 32-36 [facility] Comment on above: Performed By: #### 8 9579-7, 30130-9, 5643-2, 51318-1, LIVR, 3040-3, CBCA, BMP #### [facility] ([id number]) [address] [place] [address] 61022 MCV (RBC) [Entitic vol] 97 fL Normal 80-100 [facility] Comment on above: Performed By: #### 8 9579-7, 24398-0, 5643-2, 61950-8, LIVR, 3040-3, CBCA, BMP #### [facility] ([id number]) [address] [place] [address] 04960 MONOCYTES ABSOLUTE COUNT (10*3/UL) BY AUTOMATED COUNT 0.8 10*3/uL Normal 0.0-0.9 [facility] Comment on above: Performed By: #### 8 9579-7, 90233-7, 5643-2, 76278-0, LIVR, 3040-3, CBCA, BMP #### [facility] ([id number]) [address] [place] [address] 30629 MONOCYTES RELATIVE PERCENT BY AUTOMATED COUNT 8.5 % Normal [facility] Comment on above: Performed By: #### 8 9579-7, 16043-2, 5643-2, 53432-9, LIVR, 3040-3, CBCA, BMP #### [facility] ([id number]) [address] [place] [address] 55250 NEUTROPHILS ABSOLUTE COUNT BY AUTOMATED COUNT 5.2 10*3/uL Normal 1.5-6.6 [facility] Comment on above: Performed By: #### 8 9579-7, 96870-3, 5643-2, 66100-1, LIVR, 3040-3, CBCA, BMP #### [facility] ([id number]) [address] [place] [address] 72521 NEUTROPHILS RELATIVE PERCENT BY AUTOMATED COUNT 53.3 % Normal [facility] Comment on above: Performed By: #### 8 9579-7, 52296-0, 5643-2, 52531-8, LIVR, 3040-3, CBCA, BMP #### [facility] ([id number]) [address] [place] [address] 99104 Platelet mean volume (Bld) [Entitic vol] 8.0 fL Normal 7-12 [facility] Comment on above: Performed By: #### 8 9579-7, 44308-7, 5643-2, 09745-3, LIVR, 3040-3, CBCA, BMP #### [facility] ([id number]) [address] [place] [address] 47491 Platelets (Bld) [#/Vol] 275 10*3/uL Normal 150-450 [facility] Comment on above: Performed By: #### 8 9579-7, 26625-1, 5643-2, 15641-6, LIVR, 3040-3, CBCA, BMP #### [facility] ([id number]) [address] [place] [address] 49629 RBC COUNT 4.44 X10E12/L Normal 3.8-5.2 [facility] Comment on above: Performed By: #### 8 9579-7, 45829-7, 5643-2, 72666-3, LIVR, 3040-3, CBCA, BMP #### [facility] ([id number]) [address] [place] [address] 90028 WBC (Bld) [#/Vol] 9.7 10*3/uL Normal 4-11 [facility] Comment on above: Performed By: #### 8 9579-7, 77837-3, 5643-2, 65484-7, LIVR, 3040-3, CBCA, BMP #### [facility] ([id number]) [address] [place] [address] 93112 COMPREHENSIVE METABOLIC PANE Nimesh 09-05-2024 Albumin [Mass/Vol] 4.2 g/dL Normal 3.2-5.3 [facility] Comment on above: Performed By: #### 8 9579-7, 15818-0, 5643-2, 94821-7, LIVR, 3040-3, CBCA, BMP #### [facility] ([id number]) [address] [place] [address] 69763 ALP [Catalytic activity/Vol] 129 U/L Normal 39-130 [facility] Comment on above: Performed By: #### 8 9579-7, 39533-1, 5643-2, 94983-1, LIVR, 3040-3, CBCA, BMP #### [facility] ([id number]) [address] [place] [address] 84906 ALT [Catalytic activity/Vol] 13 U/L Normal <=31 [facility] Comment on above: Performed By: #### 8 9579-7, 94251-1, 5643-2, 23974-6, LIVR, 3040-3, CBCA, BMP #### [facility] ([id number]) [address] [place] [address] 39471 Anion gap [Moles/Vol] 7 mmol/L Normal 5-15 [facility] Comment on above: Performed By: #### 8 9579-7, 24612-7, 5643-2, 93372-2, LIVR, 3040-3, CBCA, BMP #### [facility] ([id number]) [address] [place] [address] 57743 AST [Catalytic activity/Vol] 22 U/L Normal <=41 [facility] Comment on above: Performed By: #### 8 9579-7, 91290-4, 5643-2, 78201-5, LIVR, 3040-3, CBCA, BMP #### [facility] ([id number]) [address] [place] [address] 23049 Bilirubin [Mass/Vol] 0.3 mg/dL Normal 0.3-1.2 [facility] Comment on above: Performed By: #### 8 9579-7, 13052-7, 5643-2, 12703-1, LIVR, 3040-3, CBCA, BMP #### [facility] ([id number]) [address] [place] [address] 71863 Calcium [Mass/Vol] 10.2 mg/dL Normal 8.5-10.5 [facility] Comment on above: Performed By: #### 8 9579-7, 14081-0, 5643-2, 25381-8, LIVR, 3040-3, CBCA, BMP #### [facility] ([id number]) [address] [place] [address] 44156 Chloride [Moles/Vol] 106 mmol/L Normal 98-109 [facility] Comment on above: Performed By: #### 8 9579-7, 46916-6, 5643-2, 06670-5, LIVR, 3040-3, CBCA, BMP #### [facility] ([id number]) [address] [place] [address] 17592 CO2 [Moles/Vol] 26 mmol/L Normal 22-32 [facility] Comment on above: Performed By: #### 8 9579-7, 30511-4, 5643-2, 68625-7, LIVR, 3040-3, CBCA, BMP #### [facility] ([id number]) [address] [place] [address] 96290 Creatinine [Mass/Vol] 0.74 mg/dL Normal 0.40-1.00 [facility] Comment on above: Result Comment: METH OD TRACEABLE TO IDMS STANDARD Performed By: #### 8 9579-7, 43199-9, 5643-2, 83355-9, LIVR, 3040-3, CBCA, BMP #### [facility] ([id number]) [address] [place] [address] 36326 EGFR (CKD-EPI) NON-RACE DEPENDENT >^90 Normal >=60 [facility] Comment on above: Result Comment: eGFR not reported due to non-numeric value for Creatinine. Reported eGFR is based on the CKD-EPI 2020 equation that does not use a race coefficient. Performed By: #### 8 9579-7, 77177-5, 5643-2, 81816-4, LIVR, 3040-3, CBCA, BMP #### [facility] ([id number]) [address] [place] [address] 90671 Glucose [Mass/Vol] 120 mg/dL High 65-99 [facility] Comment on above: Performed By: #### 8 9579-7, 53272-8, 5643-2, 33321-9, LIVR, 3040-3, CBCA, BMP #### [facility] ([id number]) [address] [place] [address] 10345 Potassium [Moles/Vol] 3.6 mmol/L Normal 3.5-5.0 [facility] Comment on above: Performed By: #### 8 9579-7, 75316-3, 5643-2, 92578-9, LIVR, 3040-3, CBCA, BMP #### [facility] ([id number]) [address] [place] [address] 22317 Protein [Mass/Vol] 7.5 g/dL Normal 6.0-8.0 [facility] Comment on above: Performed By: #### 8 9579-7, 76966-3, 5643-2, 65117-3, LIVR, 3040-3, CBCA, BMP #### [facility] ([id number]) [address] [place] [address] 84855 Sodium [Moles/Vol] 139 mmol/L Normal 134-146 [facility] Comment on above: Performed By: #### 8 9579-7, 74243-2, 5643-2, 26419-5, LIVR, 3040-3, CBCA, BMP #### [facility] ([id number]) [address] [place] [address] 66273 Urea nitrogen [Mass/Vol] 11 mg/dL Normal 5-23 [facility] Comment on above: Performed By: #### 8 9579-7, 60309-3, 5643-2, 97235-8, LIVR, 3040-3, CBCA, BMP #### [facility] ([id number]) [address] [place] [address] 16578 LIPASEon 09-05-2024 Lipase [Catalytic activity/Vol] 44 U/L High 17-40 [facility] Comment on above: Performed By: #### 8 9579-7, 75126-4, 5643-2, 65270-3, LIVR, 3040-3, CBCA, BMP #### [facility] ([id number]) [address] [place] [address] 33985 CBC WITH AUTO DIFFERENTIALon 08-10-2024 BASOPHILS ABSOLUTE COUNT (10*3/UL) BY AUTOMATED COUNT 0.2 10*3/uL Normal 0.0-0.2 [facility] Comment on above: Performed By: #### 8 9579-7, 30016-3, 5643-2, 93943-4, LIVR, 3040-3, CBCA, BMP #### [facility] ([id number]) [address] [place] [address] 63499 BASOPHILS RELATIVE PERCENT BY AUTOMATED COUNT 2.0 % Normal [facility] Comment on above: Performed By: #### 8 9579-7, 42333-2, 5643-2, 73423-3, LIVR, 3040-3, CBCA, BMP #### [facility] ([id number]) [address] [place] [address] 99833 CELLAVISION DIFFERENTIAL TYPE AUTOMATED DIFFERENTIAL Normal [facility] Comment on above: Performed By: #### 8 9579-7, 40975-2, 5643-2, 78411-6, LIVR, 3040-3, CBCA, BMP #### [facility] ([id number]) [address] [place] [address] 46004 Eosinophils (Bld) [#/Vol] 0.1 10*3/uL Normal 0.0-0.4 [facility] Comment on above: Performed By: #### 8 9579-7, 36940-0, 5643-2, 00530-4, LIVR, 3040-3, CBCA, BMP #### [facility] ([id number]) [address] [place] [address] 89749 EOSINOPHILS RELATIVE PERCENT BY AUTOMATED COUNT 0.8 % Normal [facility] Comment on above: Performed By: #### 8 9579-7, 54972-6, 5643-2, 47791-1, LIVR, 3040-3, CBCA, BMP #### [facility] ([id number]) [address] [place] [address] 91475 Erythrocyte distribution width (RBC) [Ratio] 13.0 % Normal 11.5-15 [facility] Comment on above: Performed By: #### 8 9579-7, 57414-8, 5643-2, 81826-3, LIVR, 3040-3, CBCA, BMP #### [facility] ([id number]) [address] [place] [address] 81652 Hematocrit (Bld) [Volume fraction] 41.7 % Normal 35-47 [facility] Comment on above: Performed By: #### 8 9579-7, 57024-0, 5643-2, 91471-4, LIVR, 3040-3, CBCA, BMP #### [facility] ([id number]) [address] [place] [address] 91983 Hemoglobin (Bld) [Mass/Vol] 14.2 g/dL Normal 11.7-15.5 [facility] Comment on above: Performed By: #### 8 9579-7, 65485-4, 5643-2, 62375-7, LIVR, 3040-3, CBCA, BMP #### [facility] ([id number]) [address] [place] [address] 39521 LYMPHOCYTES ABSOLUTE COUNT (10*3/UL) BY AUTOMATED COUNT 2.1 10*3/uL Normal 1.0-3.5 [facility] Comment on above: Performed By: #### 8 9579-7, 65283-6, 5643-2, 14653-4, LIVR, 3040-3, CBCA, BMP #### [facility] ([id number]) [address] [place] [address] 63677 LYMPHOCYTES RELATIVE PERCENT BY AUTOMATED COUNT 18.1 % Normal [facility] Comment on above: Performed By: #### 8 9579-7, 35571-5, 5643-2, 68991-3, LIVR, 3040-3, CBCA, BMP #### [facility] ([id number]) [address] [place] [address] 16111 MCH (RBC) [Entitic mass] 33.1 pg Normal 27-34 [facility] Comment on above: Performed By: #### 8 9579-7, 30533-7, 5643-2, 14263-3, LIVR, 3040-3, CBCA, BMP #### [facility] ([id number]) [address] [place] [address] 43426 MCHC (RBC) [Mass/Vol] 34.0 g/dL Normal 32-36 [facility] Comment on above: Performed By: #### 8 9579-7, 57627-5, 5643-2, 62127-9, LIVR, 3040-3, CBCA, BMP #### [facility] ([id number]) [address] [place] [address] 17737 MCV (RBC) [Entitic vol] 97 fL Normal 80-100 [facility] Comment on above: Performed By: #### 8 9579-7, 93777-5, 5643-2, 64989-0, LIVR, 3040-3, CBCA, BMP #### [facility] ([id number]) [address] [place] [address] 60664 MONOCYTES ABSOLUTE COUNT (10*3/UL) BY AUTOMATED COUNT 0.9 10*3/uL Normal 0.0-0.9 [facility] Comment on above: Performed By: #### 8 9579-7, 92564-7, 5643-2, 52122-8, LIVR, 3040-3, CBCA, BMP #### [facility] ([id number]) [address] [place] [address] 85668 MONOCYTES RELATIVE PERCENT BY AUTOMATED COUNT 7.9 % Normal [facility] Comment on above: Performed By: #### 8 9579-7, 36563-0, 5643-2, 84289-5, LIVR, 3040-3, CBCA, BMP #### [facility] ([id number]) [address] [place] [address] 11677 NEUTROPHILS ABSOLUTE COUNT BY AUTOMATED COUNT 8.4 10*3/uL High 1.5-6.6 [facility] Comment on above: Performed By: #### 8 9579-7, 48916-7, 5643-2, 06052-4, LIVR, 3040-3, CBCA, BMP #### [facility] ([id number]) [address] [place] [address] 26900 NEUTROPHILS RELATIVE PERCENT BY AUTOMATED COUNT 71.2 % Normal [facility] Comment on above: Performed By: #### 8 9579-7, 34218-6, 5643-2, 56304-1, LIVR, 3040-3, CBCA, BMP #### [facility] ([id number]) [address] [place] [address] 42700 Platelet mean volume (Bld) [Entitic vol] 8.1 fL Normal 7-12 [facility] Comment on above: Performed By: #### 8 9579-7, 90038-0, 5643-2, 14893-0, LIVR, 3040-3, CBCA, BMP #### [facility] ([id number]) [address] [place] [address] 11326 Platelets (Bld) [#/Vol] 272 10*3/uL Normal 150-450 [facility] Comment on above: Performed By: #### 8 9579-7, 65010-1, 5643-2, 06585-6, LIVR, 3040-3, CBCA, BMP #### [facility] ([id number]) [address] [place] [address] 76289 RBC COUNT 4.28 X10E12/L Normal 3.8-5.2 [facility] Comment on above: Performed By: #### 8 9579-7, 11351-3, 5643-2, 40328-8, LIVR, 3040-3, CBCA, BMP #### [facility] ([id number]) [address] [place] [address] 68853 WBC (Bld) [#/Vol] 11.8 10*3/uL High 4-11 [facility] Comment on above: Performed By: #### 8 9579-7, 52881-7, 5643-2, 66972-3, LIVR, 3040-3, CBCA, BMP #### [facility] ([id number]) [address] [place] [address] 67805 COMPREHENSIVE METABOLIC PANE Nimesh 08-10-2024 Albumin [Mass/Vol] 4.2 g/dL Normal 3.2-5.3 [facility] Comment on above: Performed By: #### 8 9579-7, 93015-0, 5643-2, 50438-8, LIVR, 3040-3, CBCA, BMP #### [facility] ([id number]) [address] [place] [address] 55102 ALP [Catalytic activity/Vol] 128 U/L Normal 39-130 [facility] Comment on above: Performed By: #### 8 9579-7, 11951-3, 5643-2, 55831-3, LIVR, 3040-3, CBCA, BMP #### [facility] ([id number]) [address] [place] [address] 66592 ALT [Catalytic activity/Vol] 16 U/L Normal <=31 [facility] Comment on above: Performed By: #### 8 9579-7, 02993-2, 5643-2, 44736-5, LIVR, 3040-3, CBCA, BMP #### [facility] ([id number]) [address] [place] [address] 93787 Anion gap [Moles/Vol] 4 mmol/L Low 5-15 [facility] Comment on above: Performed By: #### 8 9579-7, 19278-7, 5643-2, 73883-3, LIVR, 3040-3, CBCA, BMP #### [facility] ([id number]) [address] [place] [address] 18430 AST [Catalytic activity/Vol] 23 U/L Normal <=41 [facility] Comment on above: Performed By: #### 8 9579-7, 09833-3, 5643-2, 32289-3, LIVR, 3040-3, CBCA, BMP #### [facility] ([id number]) [address] [place] [address] 59613 Bilirubin [Mass/Vol] 0.3 mg/dL Normal 0.3-1.2 [facility] Comment on above: Performed By: #### 8 9579-7, 05688-3, 5643-2, 79956-0, LIVR, 3040-3, CBCA, BMP #### [facility] ([id number]) [address] [place] [address] 63170 Calcium [Mass/Vol] 9.8 mg/dL Normal 8.5-10.5 [facility] Comment on above: Performed By: #### 8 9579-7, 55338-1, 5643-2, 40203-0, LIVR, 3040-3, CBCA, BMP #### [facility] ([id number]) [address] [place] [address] 18240 Chloride [Moles/Vol] 106 mmol/L Normal 98-109 [facility] Comment on above: Performed By: #### 8 9579-7, 48455-7, 5643-2, 17998-6, LIVR, 3040-3, CBCA, BMP #### [facility] ([id number]) [address] [place] [address] 04681 CO2 [Moles/Vol] 27 mmol/L Normal 22-32 [facility] Comment on above: Performed By: #### 8 9579-7, 23721-0, 5643-2, 39759-2, LIVR, 3040-3, CBCA, BMP #### [facility] ([id number]) [address] [place] [address] 75610 Creatinine [Mass/Vol] 0.72 mg/dL Normal 0.40-1.00 [facility] Comment on above: Result Comment: METH OD TRACEABLE TO IDMS STANDARD Performed By: #### 8 9579-7, 92288-0, 5643-2, 99267-1, LIVR, 3040-3, CBCA, BMP #### [facility] ([id number]) [address] [place] [address] 32906 EGFR (CKD-EPI) NON-RACE DEPENDENT >^90 Normal >=60 [facility] Comment on above: Result Comment: eGFR not reported due to non-numeric value for Creatinine. Reported eGFR is based on the CKD-EPI 2020 equation that does not use a race coefficient. Performed By: #### 8 9579-7, 79885-2, 5643-2, 13186-4, LIVR, 3040-3, CBCA, BMP #### [facility] ([id number]) [address] [place] [address] 16992 Glucose [Mass/Vol] 115 mg/dL High 65-99 [facility] Comment on above: Performed By: #### 8 9579-7, 59725-6, 5643-2, 06043-7, LIVR, 3040-3, CBCA, BMP #### [facility] ([id number]) [address] [place] [address] 21308 Potassium [Moles/Vol] 4.3 mmol/L Normal 3.5-5.0 [facility] Comment on above: Performed By: #### 8 9579-7, 03657-1, 5643-2, 04815-7, LIVR, 3040-3, CBCA, BMP #### [facility] ([id number]) [address] [place] [address] 93451 Protein [Mass/Vol] 7.5 g/dL Normal 6.0-8.0 [facility] Comment on above: Performed By: #### 8 9579-7, 28479-3, 5643-2, 78548-3, LIVR, 3040-3, CBCA, BMP #### [facility] ([id number]) [address] [place] [address] 78414 Sodium [Moles/Vol] 137 mmol/L Normal 134-146 [facility] Comment on above: Performed By: #### 8 9579-7, 75085-2, 5643-2, 15737-4, LIVR, 3040-3, CBCA, BMP #### [facility] ([id number]) [address] [place] [address] 55660 Urea nitrogen [Mass/Vol] 10 mg/dL Normal 5-23 [facility] Comment on above: Performed By: #### 8 9579-7, 03581-8, 5643-2, 07975-6, LIVR, 3040-3, CBCA, BMP #### [facility] ([id number]) [address] [place] [address] 87972 LIPASEon 08-10-2024 Lipase [Catalytic activity/Vol] 138 U/L High 17-40 [facility] Comment on above: Performed By: #### 8 9579-7, 42463-7, 5643-2, 03346-0, LIVR, 3040-3, CBCA, BMP #### [facility] ([id number]) [address] [place] [address] 95282 CBC with Auto Differentialon 08-08-2024 Basophils (Bld) [#/Vol] 0.11 10*3/uL [facility] Basophils/100 WBC (Bld) 1 % 0 - 2 % [facility] Eosinophils (Bld) [#/Vol] 0.17 10*3/uL [facility] Eosinophils/100 WBC (Bld) 2 % 1 - 4 % [facility] Erythrocyte distribution width (RBC) [Ratio] 12.5 % 11.8 - 14.4 % [facility] Hematocrit (Bld) [Volume fraction] 44.1 % 36.3 - 47.1 % [facility] Hemoglobin (Bld) [Mass/Vol] 14.9 g/dL 11.9 - 15.1 g/dL [facility] Immature granulocytes (Bld) [#/Vol] 0.04 10*3/uL [facility] Immature granulocytes/100 WBC (Bld) 0 % 0 [facility] Lymphocytes/100 WBC (Bld) 30 % 24 - 43 % [facility] Lymphocytes/100 WBC (Bld) 3.09 % [facility] MCH (RBC) [Entitic mass] 33.4 pg 25.2 - 33.5 pg [facility] MCHC (RBC) [Mass/Vol] 33.8 g/dL 28.4 - 34.8 g/dL [facility] MCV (RBC) [Entitic vol] 98.9 fL 82.6 - 102.9 fL [facility] Monocytes/100 WBC (Bld) 9 % 3 - 12 % [facility] Monocytes/100 WBC (Bld) 0.88 % [facility] Neutrophils/100 WBC (Bld) 58 % 36 - 65 % [facility] Nucleated RBC/100 WBC (Bld) [Ratio] 0 % 0.0 per 100 WBC [facility] Platelet mean volume (Bld) [Entitic vol] 9.5 fL 8.1 - 13.5 fL [facility] Platelets (Bld) [#/Vol] 265 10*3/uL [facility] RBC (Bld) [#/Vol] 4.46 10*6/uL 3.95 - 5.11 m/uL [facility] Segmented neutrophils/100 WBC (Bld) 5.99 % [facility] WBC other (Bld) [#/Vol] 10.3 [facility] CBC with Diffon 08-08-2024 Abs. Basophil 0.11 k/uL Normal 0.00-0.20 [facility] Comment on above: Performed By: #### B MP, LIVP, LIP #### [address] [place], [place] [id number] [employer] Le[employer] Trimmer: Ion Jasso MD Abs.Imm.Granulocyte 0.04 k/uL Normal 0.00-0.30 [facility] Comment on above: Performed By: #### B MP, LIVP, LIP #### [address] [place], [place] [address] [employer] Leather Trimmer: Ion Jasso MD Abs.Neutrophil (Seg) 5.99 k/uL Normal 1.50-8.10 [facility] Comment on above: Performed By: #### B MP, LIVP, LIP #### [address] [place] [id number] [employer]immer: Ion Jasso MD Basophils/100 WBC (Bld) 1 % Normal 0-2 [facility] Comment on above: Performed By: #### B MP, LIVP, LIP #### [address] [place], [facility] [employer]immer: Ion Jasso MD Eosinophils (Bld) [#/Vol] 0.17 10*3/uL Normal 0.00-0.44 [facility] Comment on above: Performed By: #### B MP, LIVP, LIP #### [address] [place], [place] [address] [employer]immer: Ion Jasso MD Eosinophils/100 WBC (Bld) 2 % Normal 1-4 [facility] Comment on above: Performed By: #### B MP, LIVP, LIP #### [address] [place], [place] [address] [employer]immer: Ion Jasso MD Erythrocyte distribution width (RBC) [Ratio] 12.5 % Normal 11.8-14.4 [facility] Comment on above: Performed By: #### B MP, LIVP, LIP #### [facility] [address] [place], [place] [address] [employer] Leather Trimmer: Ion Jasso MD Hematocrit (Bld) [Volume fraction] 44.1 % Normal 36.3-47.1 [facility] Comment on above: Performed By: #### B MP, LIVP, LIP #### [facility] [address] [place], [facility] [employer] Le[employer] Trimmer: Ion Jasso MD Hemoglobin (Bld) [Mass/Vol] 14.9 g/dL Normal 11.9-15.1 [facility] Comment on above: Performed By: #### B MP, LIVP, LIP #### [facility] [address] [place], [facility] [employer]immer: Ion Jasso MD Immature granulocytes/100 WBC (Bld) 0 % Normal 0 [facility] Comment on above: Performed By: #### B MP, LIVP, LIP #### [address] [place], [facility] [employer] Le[employer]immer: Ion Jasso MD Lymphocytes (Bld) [#/Vol] 3.09 10*3/uL Normal 1.10-3.70 [facility] Comment on above: Performed By: #### B MP, LIVP, LIP #### [address] [place], [facility] [employer]immer: Ion Jasso MD Lymphocytes/100 WBC (Bld) 30 % Normal 24-43 [facility] Comment on above: Performed By: #### B MP, LIVP, LIP #### [facility] [address] [place], [facility] [employer] Le[employer]immer: Ion Jasso MD MCH (RBC) [Entitic mass] 33.4 pg Normal 25.2-33.5 [facility] Comment on above: Performed By: #### B MP, LIVP, LIP #### [facility] [address] [place], [place] 3[address] [employer] Le[employer] Trimmer: Ion Jasso MD MCHC (RBC) [Mass/Vol] 33.8 g/dL Normal 28.4-34.8 [facility] Comment on above: Performed By: #### B MP, LIVP, LIP #### [facility] [address] [place], [place] [address] [employer] Trimmer: Ion Jasso MD MCV (RBC) [Entitic vol] 98.9 fL Normal 82.6-102.9 [facility] Comment on above: Performed By: #### B MP, LIVP, LIP #### [address] [place], [place] [address]83 [employer]immer: Ion Jasso MD Monocytes (Bld) [#/Vol] 0.88 10*3/uL Normal 0.10-1.20 [facility] Comment on above: Performed By: #### B MP, LIVP, LIP #### [address] [place], [facility] [employer] Le[employer]immer: Ion Jasso MD Monocytes/100 WBC (Bld) 9 % Normal 3-12 [facility] Comment on above: Performed By: #### B MP, LIVP, LIP #### [address] [place], [place] [address] [employer] Trimmer: Ion Jasso MD Neutrophil (Seg) 58 % Normal 36-65 [facility] Comment on above: Performed By: #### B MP, LIVP, LIP #### [facility] [address] [place], [place] [address] [employer] Le[employer] Trimmer: Ion Jasso MD NRBC Automated 0.0 per 100 WBC Normal 0.0 [facility] Comment on above: Performed By: #### B MP, LIVP, LIP #### [facility] [address] [place], [place] [address] [employer] Le[employer] Trimmer: Ion Jasso MD Platelet mean volume (Bld) [Entitic vol] 9.5 fL Normal 8.1-13.5 [facility] Comment on above: Performed By: #### B MP LIVP, LIP #### [facility] [address] [place], [place] [phone] [employer] Trimmer: Ion Jasso MD Platelets (Bld) [#/Vol] 265 10*3/uL Normal 138-453 [facility] Comment on above: Performed By: #### B MP LIVP, LIP #### [facility] [address] [place] [address] [employer] Leather Trimmer: Ion Jasso MD RBC (Bld) [#/Vol] 4.46 10*6/uL Normal 3.95-5.11 [facility] Comment on above: Performed By: #### B MP LIVP, LIP #### [facility] [address] [place], [place] [id number] Black Leather Trimmer: Ion Jasso MD WBC (Bld) [#/Vol] 10.3 10*3/uL Normal 3.5-11.3 [facility] Comment on above: Performed By: #### B MP, LIVP, LIP #### [facility] [address] [place], [place] [id number] Black Leather Trimmer: Ion Jasso MD [facility] 08-08-2024 Albumin [Mass/Vol] 4.3 g/dL 3.5 - 5.2 g/dL [facility] Albumin/Globulin [Mass ratio] 1.5 {ratio} 1.0 - 2.5 [facility] ALP [Catalytic activity/Vol] 142 U/L High 35 - 104 U/L [facility] ALT [Catalytic activity/Vol] 9 U/L Low 10 - 35 U/L [facility] Anion gap [Moles/Vol] 12 mmol/L 9 - 16 mmol/L [facility] AST [Catalytic activity/Vol] 21 U/L 10 - 35 U/L [facility] Bilirubin [Mass/Vol] mg/dL 0.00 - 1.20 mg/dL [facility] Calcium [Mass/Vol] 10.2 mg/dL 8.6 - 10. 4 mg/dL [facility] Chloride [Moles/Vol] 103 mmol/L 98 - 10 7 mmol/L [facility] CO2 [Moles/Vol] 24 mmol/L 20 - 31 mmol/L [facility] Creatinine [Mass/Vol] 0.8 mg/dL 0.50 - 0.90 mg/dL [facility] Est, Glom Filt Rate 81 - PINF [facility] Comment on above: These results are not [...] [Mass/Vol] 86 mg/dL 74 - 99 mg/dL [facility] Potassium [Moles/Vol] 4.5 mmol/L 3.7 - 5.3 mmol/L [facility] Protein [Mass/Vol] 7.3 g/dL 6.6 - 8.7 g/dL [facility] Sodium [Moles/Vol] 139 mmol/L 136 - 145 mmol/L [facility] Urea nitrogen [Mass/Vol] 16 mg/dL 6 - 20 mg/dL [facility] Urea nitrogen/Creatinine [Mass ratio] 20 mg/mg 9 - 20 [facility] Comp Metabolic Profon 2024 Albumin [Mass/Vol] 4.3 g/dL Normal 3.5-5.2 [facility] Comment on above: Performed By: #### B NANCY MEDEL LIP #### [facility] [address] [place] [address] Black Leather Trimmer: Ion Jasso MD Albumin/Glob Ratio 1.5 Normal 1.0-2.5 [facility] Comment on above: Performed By: #### B MP, LIVP, LIP #### [facility] [address] [place], [place] [id number] Black Leather Trimmer: Ion Jasso MD Alkaline Phos 142 U/L High 35-104 [facility] Comment on above: Performed By: #### B MP, LIVP, LIP #### [facility] [address] [place], [place] [id number] Black Leather Trimmer: Ion Jasso MD ALT [Catalytic activity/Vol] 9 U/L Low 10-35 [facility] Comment on above: Performed By: #### B MP, LIVP, LIP #### [facility] [address] [place], [place] 7060383 Black Leather Trimmer: Ion Jasso MD Anion gap [Moles/Vol] 12 mmol/L Normal 9-16 [facility] Comment on above: Performed By: #### B MP, LIVP, LIP #### [facility] [address] [place], [place] 7756783 Black Leather Trimmer: Ion Jasso MD AST [Catalytic activity/Vol] 21 U/L Normal 10-35 [facility] Comment on above: Performed By: #### B MP, LIVP, LIP #### [facility] [address] [place], [place] 8259183 Black Leather Trimmer: Ion Jasso MD Bilirubin [Mass/Vol] mg/dL Normal 0.00-1.20 [facility] Comment on above: Performed By: #### B MP, LIVP, LIP #### [facility] [address] [place], [place] 2757983 Black Leather Trimmer: Ion Jasso MD BUN/CRE Ratio 20 Normal 9-20 [facility] Comment on above: Performed By: #### B MP, LIVP, LIP #### [facility] [address] [place], [place] 8209483 Black Leather Trimmer: Ion Jasso MD Calcium [Mass/Vol] 10.2 mg/dL Normal 8.6-10.4 [facility] Comment on above: Performed By: #### B MP LIVP, LIP #### [facility] [address] [place], [place] [phone] Black Leather Trimmer: Ion Jasso MD Chloride [Moles/Vol] 103 mmol/L Normal 98-107 [facility] Comment on above: Performed By: #### B MP LIVP, LIP #### [facility] [address] [place], [place] 5601783 Black Leather Trimmer: Ion Jasso MD CO2 [Moles/Vol] 24 mmol/L Normal 20-31 [facility] Comment on above: Performed By: #### B LIZY LIVP, LIP #### [facility] [address] [place], [place] 4064083 Black Leather Trimmer: Ion Jasso MD Creatinine [Mass/Vol] 0.8 mg/dL Normal 0.50-0.90 [facility] Comment on above: Performed By: #### B LIZY LIVP, LIP #### [facility] [address] [place], [place] [phone] Black Leather Trimmer: Ion Jasso MD GFR/1.73 sq M.predicted among non-blacks MDRD (S/P/Bld) [Vol rate/Area] 81 mL/min/{1.73_m2} Normal >60 [facility] Comment on above: Result Comment: These results [...] By: #### B MP LIVP, LIP #### [facility] [address] [place], [place] [phone] Black Leather Trimmer: Ion Jasso MD Glucose [Mass/Vol] 86 mg/dL Normal 74-99 [facility] Comment on above: Performed By: #### B MP, LIVP, LIP #### [facility] [address] [place], [place] 8277883 Black Leather Trimmer: Ion Jasso MD Potassium [Moles/Vol] 4.5 mmol/L Normal 3.7-5.3 [facility] Comment on above: Performed By: #### B MP, LIVP, LIP #### [facility] [address] [place], [place] 7587683 Black Leather Trimmer: Ion Jasso MD Protein [Mass/Vol] 7.3 g/dL Normal 6.6-8.7 [facility] Comment on above: Performed By: #### B MP, LIVP, LIP #### [facility] [address] [place], [place] 8878883 Black Leather Trimmer: Ion Jasso MD Sodium [Moles/Vol] 139 mmol/L Normal 136-145 [facility] Comment on above: Performed By: #### B MP, LIVP, LIP #### [facility] [address] [place], [place] 6219683 Black Leather Trimmer: Ion Jasso MD Urea nitrogen [Mass/Vol] 16 mg/dL Normal 6-20 [facility] Comment on above: Performed By: #### B MP, LIVP, LIP #### [facility] [address] [place], [place] 1500883 Black Leather Trimmer: Ion Jasso MD Lactic Acidon 08-08-2024 Lactate (BldV) [Moles/Vol] 1.2 mmol/L 0.5 - 2.2 mmol/L [facility] Lactate [Moles/Vol] 1.2 mmol/L Normal 0.5-2.2 [facility] Comment on above: Performed By: #### B JOSE ANGEL MEDELP, LIP #### [facility] [address] [place] [address] Black Leather Trimmer: Ion Jasso MD Lipaseon 08-08-2024 Lipase [Catalytic activity/Vol] 109 U/L High 13 - 60 U/L [facility] Lipase [Catalytic activity/Vol] 109 U/L High 13-60 [facility] Comment on above: Performed By: #### B NANCY MEDEL, LIP #### [facility] [address] [place] [address] Black Leather Trimmer: Ion Jasso MD Magnesiumon 08-08-2024 Magnesium [Mass/Vol] 2.4 mg/dL 1.6 - 2 .6 mg/dL [facility] Magnesium [Mass/Vol] 2.4 mg/dL Normal 1.6-2.6 [facility] Comment on above: Performed By: #### B NANCY MEDEL, LIP #### [facility] [address] [place] [address] Black Leather Trimmer: Ion Jasso MD Microscopic Urinalysison Bacteria LM Ql (Urine sed) 1+ Abnormal None [facility] Epithelial cells LM.HPF (Urine sed) [#/Area] 10 TO 20 [facility] Interpretation and review of laboratory results Abnormal [facility] Mucus Ql (Urine sed) TRACE Abnormal None [facility] RBC LM.HPF (Urine sed) [#/Area] 0 TO 2 [facility] WBC LM.HPF (Urine sed) [#/Area] 0 TO 2 [facility] No Panel Informationon 08-08 Interpretation and review of laboratory results Abnormal [facility] UA w/Reflex Cultureon 2024 Clarity (U) SLIGHTLY CLOUDY Abnormal CLEAR [facility] Comment on above: Performed By: #### L IP, CDP, CP #### [facility] [address] [place], [place] 0880383 Black Leather Trimmer: Ion Jasso MD Color (U) Yellow Normal YEL [facility] Comment on above: Performed By: #### L IP, CDP, CP #### [facility] [address] [place] [address] [place] [address] Black Leather Trimmer: Ion Jasso MD Leukocyte esterase Test strip Ql (U) Negative Normal NEG [facility] Comment on above: Performed By: #### L IP, CDP, CP #### [facility] [address] [place] [address] [place] [address] Black Leather Trimmer: Ion Jasso MD Bilirubin, SemiQt,Ur Negative Normal [facility] Comment on above: Performed By: #### L IP, CDP, CP #### [facility] [address] [place] [address] Dr. [place], [place] 7804883 Black Leather Trimmer: Ion Jasso MD Blood, Urine Negative Normal [facility] Comment on above: Performed By: #### L IP, CDP, CP #### [facility] [address] [place] [address] Dr[place], [place] [phone] Black Leather Trimmer: Ion Jasso MD Glucose Ql (U) Negative Normal NEG [facility] Comment on above: Performed By: #### L IP, CDP, CP #### [facility] [address] [place] [address] [place] [address] Black Leather Trimmer: Ion Jasso MD Ketones Ql (U) Negative Normal NEG [facility] Comment on above: Performed By: #### L IP, CDP, CP #### [facility] [address] [place] [address] Dr. [place], [place] 3342183 Black Leather Trimmer: Ion Jasso MD Nitrite,Ur Negative Normal [facility] Comment on above: Performed By: #### L IP, CDP, CP #### [facility] [address] [place] [address] Dr. [place], [place] [phone] Black Leather Trimmer: Ion Jasso MD PH,Ur 6.0 Normal 5.0-9.0 [facility] Comment on above: Performed By: #### L WALTER ROONEY, CP #### [facility] [address] [place] [address] [place] [address] Black Leather Trimmer: Ion Jasso MD Protein Ql (U) Negative Normal NEG [facility] Comment on above: Performed By: #### L WALTER ROONEY, CP #### [facility] [address] [place] [address] [place] [address] Black Leather Trimmer: Ion Jasso MD Spec. [place],Ur 1.020 Normal 1.010-1.02 0 [facility] Comment on above: Performed By: #### L WALTER ROONEY, CP #### [address] [place] [address] Black Leather Trimmer: Ion Jasso MD Urobilinogen,Ur Normal Normal 0.0-1.0 [facility] Comment on above: Performed By: #### L WALTER ROONEY, CP #### [address] [place] [address] Black Leather Trimmer: Ion Jasso MD Urinalysis with Reflex to Cu ltureon 08-08-2024 Bilirubin Ql (U) Negative NEGATIVE [facility] Glucose Test strip (U) [Mass/Vol] Negative NEGATIVE mg/dL [facility] Hemoglobin Auto test strip Ql (U) Negative NEGATIVE [facility] Interpretation and review of laboratory results Abnormal [facility] Ketones (U) [Mass/Vol] Negative NEGAT MATTHIAS mg/dL [facility] Nitrite Ql (U) Negative NEGATIVE [facility] pH (U) 6 [pH] 5.0 - 9.0 [facility] Protein (U) [Mass/Vol] Negative NEGAT MATTHIAS mg/dL [facility] Specific gravity (U) [Rel density] 1.02 1.010 - 1.020 [facility] Urobilinogen Qn (U) Normal 0.0 - 1. 0 EU/dL [facility] Urinalysis,Microon 5 Amorphous sediment LM Ql (Urine sed) TRACE Abnormal NONE [facility] Comment on above: Performed By: #### L IP, CDP, CP #### [facility] [address] [place] [address] Dr. [place], [place] 7279883 Black Leather Trimmer: Ion Jasso MD Bacteria 1+ Abnormal [facility] Comment on above: Performed By: #### L IP, CDP, CP #### [facility] [address] [place], [place] 9483183 Black Leather Trimmer: Ion Jasso MD Epithelial cells LM Ql (Urine sed) 10 TO 20 Normal 0-25 [facility] Comment on above: Performed By: #### L IP, CDP, CP #### [address] [place], [place] 5866683 Black Leather Trimmer: Ion Jasso MD Mucus Strands TRACE Abnormal [facility] Comment on above: Performed By: #### L IP, CDP, CP #### [address] [place], [place] 090[address]83 Black Leather Trimmer: Ion Jasso MD Urine RBC's 0 TO 2 Normal 0-2 [facility] Comment on above: Performed By: #### L IP, CDP, CP #### [facility] [address] [place], [place] 2530883 Black Leather Trimmer: Ion Jasso MD Urine WBC's 0 TO 2 Normal 0-5 [facility] Comment on above: Performed By: #### L IP, CDP, CP #### [facility] [address] [place], [place] 5184[address] Black Leather Trimmer: Ion Jasso MD CBC AND AUTO DIFFon 06-28-19 25 ABSOLUTE BASOPHIL 0.1 X10E9/L Normal 0.0-0.2 [facility] Comment on above: Performed By: #### 8 9579-7, 02163-4, 5643-2, 02264-0, LIVR, 3040-3, CBCA, BMP #### [facility] ([id number]) [address] [place] [address] 83963 ABSOLUTE NEUTROPHIL 4.9 X10E9/L Normal 1.5-6.6 [facility] Comment on above: Performed By: #### 8 9579-7, 61214-7, 5643-2, 66741-7, LIVR, 3040-3, CBCA, BMP #### [facility] ([id number]) [address] [place] [address] 05212 Basophils/100 WBC (Bld) 1.2 % Normal [facility] Comment on above: Performed By: #### 8 9579-7, 26961-6, 5643-2, 46547-2, LIVR, 3040-3, CBCA, BMP #### [facility] ([id number]) [address] [place] [address] 43321 Eosinophils (Bld) [#/Vol] 0.1 10*3/uL Normal 0.0-0.4 [facility] Comment on above: Performed By: #### 8 9579-7, 60775-1, 5643-2, 06950-9, LIVR, 3040-3, CBCA, BMP #### [facility] ([id number]) [address] [place] [address] 22703 Eosinophils/100 WBC (Bld) 1.3 % Normal [facility] Comment on above: Performed By: #### 8 9579-7, 77784-0, 5643-2, 70114-9, LIVR, 3040-3, CBCA, BMP #### [facility] ([id number]) [address] [place] [address] 49435 Erythrocyte distribution width (RBC) [Ratio] 13.1 % Normal 11.5-15.0 [facility] Comment on above: Performed By: #### 8 9579-7, 18169-1, 5643-2, 88160-8, LIVR, 3040-3, CBCA, BMP #### [facility] ([id number]) [address] [place] [address] 21122 Hematocrit (Bld) [Volume fraction] 40.9 % Normal 35-47 [facility] Comment on above: Performed By: #### 8 9579-7, 93660-5, 5643-2, 33844-3, LIVR, 3040-3, CBCA, BMP #### [facility] ([id number]) [address] [place] [address] 73243 Hemoglobin (Bld) [Mass/Vol] 14.3 g/dL Normal 11.7-15.5 [facility] Comment on above: Performed By: #### 8 9579-7, 55534-6, 5643-2, 12905-6, LIVR, 3040-3, CBCA, BMP #### [facility] ([id number]) [address] [place] [address] 66512 Lymphocytes (Bld) [#/Vol] 2.3 10*3/uL Normal 1.0-3.5 [facility] Comment on above: Performed By: #### 8 9579-7, 21896-7, 5643-2, 40295-9, LIVR, 3040-3, CBCA, BMP #### [facility] ([id number]) [address] [place] [address] 74700 Lymphocytes/100 WBC (Bld) 27.6 % Normal [facility] Comment on above: Performed By: #### 8 9579-7, 17276-7, 5643-2, 16050-5, LIVR, 3040-3, CBCA, BMP #### [facility] ([id number]) [address] [place] [address] [place] [address] MCH (RBC) [Entitic mass] 34.2 pg High 27-34 [facility] Comment on above: Performed By: #### 8 9579-7, 24424-2, 5643-2, 67738-0, LIVR, 3040-3, CBCA, BMP #### [facility] ([id number]) [address] [place] [address] 10089 MCHC (RBC) [Mass/Vol] 35.0 g/dL Normal 32-36 [facility] Comment on above: Performed By: #### 8 9579-7, 82460-5, 5643-2, 17118-9, LIVR, 3040-3, CBCA, BMP #### [facility] ([id number]) [address] [place] [address] 76822 MCV (RBC) [Entitic vol] 98 fL Normal 80-100 [facility] Comment on above: Performed By: #### 8 9579-7, 60506-2, 5643-2, 62714-6, LIVR, 3040-3, CBCA, BMP #### [facility] ([id number]) [address] [place] [address] 73265 Monocytes (Bld) [#/Vol] 1.0 10*3/uL High 0-0.9 [facility] Comment on above: Performed By: #### 8 9579-7, 37573-6, 5643-2, 48036-4, LIVR, 3040-3, CBCA, BMP #### [facility] ([id number]) [address] [place] [address] 90702 Monocytes/100 WBC (Bld) 11.4 % Normal [facility] Comment on above: Performed By: #### 8 9579-7, 88949-2, 5643-2, 72915-2, LIVR, 3040-3, CBCA, BMP #### [facility] ([id number]) [address] [place] [address] 78378 Neutrophils/100 WBC (Bld) 58.5 % Normal [facility] Comment on above: Performed By: #### 8 9579-7, 39483-8, 5643-2, 41140-8, LIVR, 3040-3, CBCA, BMP #### [facility] ([id number]) [address] [place] [address] 43585 Platelet mean volume (Bld) [Entitic vol] 7.9 fL Normal 7-12 [facility] Comment on above: Performed By: #### 8 9579-7, 01258-2, 5643-2, 38054-9, LIVR, 3040-3, CBCA, BMP #### [facility] ([id number]) [address] [place] [address] 60438 Platelets (Bld) [#/Vol] 267 10*3/uL Normal 150-450 [facility] Comment on above: Performed By: #### 8 9579-7, 90001-7, 5643-2, 74410-5, LIVR, 3040-3, CBCA, BMP #### [facility] ([id number]) [address] [place] [address] 71936 RBC COUNT 4.18 X10E12/L Normal 3.80-5.20 [facility] Comment on above: Performed By: #### 8 9579-7, 47049-5, 5643-2, 92535-9, LIVR, 3040-3, CBCA, BMP #### [facility] ([id number]) [address] [place] [address] 02808 WBC (Bld) [#/Vol] 8.4 10*3/uL Normal 4.0-11.0 [facility] Comment on above: Performed By: #### 8 9579-7, 39287-3, 5643-2, 02416-3, LIVR, 3040-3, CBCA, BMP #### [facility] ([id number]) [address] [place] [address] 76209 COMPREHENSIVE METABOLIC PANE Nimesh 06-27-2024 Albumin [Mass/Vol] 4.1 g/dL Normal 3.2-5.3 [facility] Comment on above: Performed By: #### 8 9579-7, 31189-6, 5643-2, 70929-9, LIVR, 3040-3, CBCA, BMP #### [facility] ([id number]) [address] [place] [address] 09542 ALP [Catalytic activity/Vol] 133 U/L High 39-130 [facility] Comment on above: Performed By: #### 8 9579-7, 35992-7, 5643-2, 87268-2, LIVR, 3040-3, CBCA, BMP #### [facility] ([id number]) [address] [place] [address] 93023 ALT [Catalytic activity/Vol] 14 U/L Normal 0-31 [facility] Comment on above: Performed By: #### 8 9579-7, 38932-2, 5643-2, 28044-8, LIVR, 3040-3, CBCA, BMP #### [facility] ([id number]) [address] [place] [address] 94617 Anion gap [Moles/Vol] 8 mmol/L Normal 5-15 [facility] Comment on above: Performed By: #### 8 9579-7, 78067-7, 5643-2, 77136-6, LIVR, 3040-3, CBCA, BMP #### [facility] ([id number]) [address] [place] [address] 80838 AST [Catalytic activity/Vol] 19 U/L Normal 0-41 [facility] Comment on above: Performed By: #### 8 9579-7, 72421-7, 5643-2, 20089-8, LIVR, 3040-3, CBCA, BMP #### [facility] ([id number]) [address] [place] [address] 80817 Bilirubin [Mass/Vol] 0.3 mg/dL Normal 0.3-1.2 [facility] Comment on above: Performed By: #### 8 9579-7, 76850-4, 5643-2, 32704-6, LIVR, 3040-3, CBCA, BMP #### [facility] ([id number]) [address] [place] [address] 96884 Calcium [Mass/Vol] 10.7 mg/dL High 8.5-10.5 [facility] Comment on above: Performed By: #### 8 9579-7, 68726-0, 5643-2, 76533-6, LIVR, 3040-3, CBCA, BMP #### [facility] ([id number]) [address] [place] [address] 03840 Chloride [Moles/Vol] 104 mmol/L Normal 98-109 [facility] Comment on above: Performed By: #### 8 9579-7, 26290-3, 5643-2, 59769-8, LIVR, 3040-3, CBCA, BMP #### [facility] ([id number]) [address] [place] [address] 77224 CO2 [Moles/Vol] 26 mmol/L Normal 22-32 [facility] Comment on above: Performed By: #### 8 9579-7, 81427-5, 5643-2, 50757-7, LIVR, 3040-3, CBCA, BMP #### [facility] ([id number]) [address] [place] [address] 65961 Creatinine [Mass/Vol] 0.76 mg/dL Normal 0.40-1.00 [facility] Comment on above: Result Comment: METH OD TRACEABLE TO IDMS STANDARD Performed By: #### 8 9579-7, 40002-5, 5643-2, 83167-6, LIVR, 3040-3, CBCA, BMP #### [facility] ([id number]) [address] [place] [address] 35953 eGFR (CKD-EPI) NON-RACE DEPENDENT >90 Normal >59 [facility] Comment on above: Result Comment: Reported eGFR is based on the CKD-EPI 2020 equation that does not use a race coefficient. Performed By: #### 8 9579-7, 46332-6, 5643-2, 97404-9, LIVR, 3040-3, CBCA, BMP #### [facility] ([id number]) [address] [place] [address] 39792 Glucose [Mass/Vol] 106 mg/dL High 65-99 [facility] Comment on above: Performed By: #### 8 9579-7, 23456-5, 5643-2, 15730-2, LIVR, 3040-3, CBCA, BMP #### [facility] ([id number]) [address] [place] [address] 58890 Potassium [Moles/Vol] 3.9 mmol/L Normal 3.5-5.0 [facility] Comment on above: Performed By: #### 8 9579-7, 46388-6, 5643-2, 92606-6, LIVR, 3040-3, CBCA, BMP #### [facility] ([id number]) [address] [place] [address] 36950 Protein [Mass/Vol] 7.0 g/dL Normal 6.0-8.0 [facility] Comment on above: Performed By: #### 8 9579-7, 68965-2, 5643-2, 77498-3, LIVR, 3040-3, CBCA, BMP #### [facility] ([id number]) [address] [place] [address] 82754 Sodium [Moles/Vol] 138 mmol/L Normal 134-146 [facility] Comment on above: Performed By: #### 8 9579-7, 18891-9, 5643-2, 42209-3, LIVR, 3040-3, CBCA, BMP #### [facility] ([id number]) [address] [place] [address] 24979 Urea nitrogen [Mass/Vol] 10 mg/dL Normal 5-23 [facility] Comment on above: Performed By: #### 8 9579-7, 99407-3, 5643-2, 33373-6, LIVR, 3040-3, CBCA, BMP #### [facility] ([id number]) [address] [place] [address] 28995 LIPASEon 06-27-2024 Lipase [Catalytic activity/Vol] 37 U/L Normal 17-40 [facility] Comment on above: Performed By: #### 8 9579-7, 82178-5, 5643-2, 04319-1, LIVR, 3040-3, CBCA, BMP #### [facility] ([id number]) [address] [place] [address] 63627 BASIC METABOLIC PANLon 06-15 Anion gap [Moles/Vol] 8 mmol/L Normal 5-15 [facility] Comment on above: Performed By: #### 8 9579-7, 07669-3, 5643-2, 41194-1, LIVR, 3040-3, CBCA, BMP #### [facility] ([id number]) [address] [place] [address] 90233 Calcium [Mass/Vol] 9.7 mg/dL Normal 8.5-10.5 [facility] Comment on above: Performed By: #### 8 9579-7, 19581-8, 5643-2, 86481-7, LIVR, 3040-3, CBCA, BMP #### [facility] ([id number]) [address] [place] [address] 94509 Chloride [Moles/Vol] 105 mmol/L Normal 98-109 [facility] Comment on above: Performed By: #### 8 9579-7, 45151-3, 5643-2, 90907-5, LIVR, 3040-3, CBCA, BMP #### [facility] ([id number]) [address] [place] [address] 57443 CO2 [Moles/Vol] 24 mmol/L Normal 22-32 [facility] Comment on above: Performed By: #### 8 9579-7, 35767-7, 5643-2, 84058-4, LIVR, 3040-3, CBCA, BMP #### [facility] ([id number]) [address] [place] [address] 24558 Creatinine [Mass/Vol] 0.78 mg/dL Normal 0.40-1.00 [facility] Comment on above: Result Comment: METH OD TRACEABLE TO IDMS STANDARD Performed By: #### 8 9579-7, 77358-8, 5643-2, 60634-4, LIVR, 3040-3, CBCA, BMP #### [facility] ([id number]) [address] [place] [address] 49425 eGFR (CKD-EPI) NON-RACE DEPENDENT >90 Normal >59 [facility] Comment on above: Result Comment: Reported eGFR is based on the CKD-EPI 2020 equation that does not use a race coefficient. Performed By: #### 8 9579-7, 05090-3, 5643-2, 97559-6, LIVR, 3040-3, CBCA, BMP #### [facility] ([id number]) [address] [place] [address] 66610 Glucose [Mass/Vol] 97 mg/dL Normal 65-99 [facility] Comment on above: Performed By: #### 8 9579-7, 20723-7, 5643-2, 96365-9, LIVR, 3040-3, CBCA, BMP #### [facility] ([id number]) [address] [place] [address] 98229 Potassium [Moles/Vol] 3.3 mmol/L Low 3.5-5.0 [facility] Comment on above: Performed By: #### 8 9579-7, 73342-8, 5643-2, 10731-6, LIVR, 3040-3, CBCA, BMP #### [facility] ([id number]) [address] [place] [address] 03434 Sodium [Moles/Vol] 137 mmol/L Normal 134-146 [facility] Comment on above: Performed By: #### 8 9579-7, 27174-0, 5643-2, 79911-6, LIVR, 3040-3, CBCA, BMP #### [facility] ([id number]) [address] [place] [address] 09584 Urea nitrogen [Mass/Vol] 9 mg/dL Normal 5-23 [facility] Comment on above: Performed By: #### 8 9579-7, 21797-9, 5643-2, 07083-3, LIVR, 3040-3, CBCA, BMP #### [facility] ([id number]) [address] [place] [address] 80718 CBC AND AUTO DIFFon 06-16-19 25 ABSOLUTE BASOPHIL 0.1 X10E9/L Normal 0.0-0.2 [facility] Comment on above: Performed By: #### 8 9579-7, 07211-0, 5643-2, 63868-1, LIVR, 3040-3, CBCA, BMP #### [facility] ([id number]) [address] [place] [address] 31164 ABSOLUTE NEUTROPHIL 6.2 X10E9/L Normal 1.5-6.6 [facility] Comment on above: Performed By: #### 8 9579-7, 71506-1, 5643-2, 11721-7, LIVR, 3040-3, CBCA, BMP #### [facility] ([id number]) [address] [place] [address] 11182 Basophils/100 WBC (Bld) 0.9 % Normal [facility] Comment on above: Performed By: #### 8 9579-7, 79532-8, 5643-2, 61896-1, LIVR, 3040-3, CBCA, BMP #### [facility] ([id number]) [address] [place] [address] 02897 Eosinophils (Bld) [#/Vol] 0.1 10*3/uL Normal 0.0-0.4 [facility] Comment on above: Performed By: #### 8 9579-7, 49689-4, 5643-2, 36004-8, LIVR, 3040-3, CBCA, BMP #### [facility] ([id number]) [address] [place] [address] 11695 Eosinophils/100 WBC (Bld) 1.1 % Normal [facility] Comment on above: Performed By: #### 8 9579-7, 29523-4, 5643-2, 35361-6, LIVR, 3040-3, CBCA, BMP #### [facility] ([id number]) [address] [place] [address] 38902 Erythrocyte distribution width (RBC) [Ratio] 13.3 % Normal 11.5-15.0 [facility] Comment on above: Performed By: #### 8 9579-7, 40071-6, 5643-2, 38432-0, LIVR, 3040-3, CBCA, BMP #### [facility] ([id number]) [address] [place] [address] 54426 Hematocrit (Bld) [Volume fraction] 42.3 % Normal 35-47 [facility] Comment on above: Performed By: #### 8 9579-7, 79397-0, 5643-2, 93963-5, LIVR, 3040-3, CBCA, BMP #### [facility] ([id number]) [address] [place] [address] 30055 Hemoglobin (Bld) [Mass/Vol] 14.3 g/dL Normal 11.7-15.5 [facility] Comment on above: Performed By: #### 8 9579-7, 89334-4, 5643-2, 02629-8, LIVR, 3040-3, CBCA, BMP #### [facility] ([id number]) [address] [place] [address] 10949 Lymphocytes (Bld) [#/Vol] 2.6 10*3/uL Normal 1.0-3.5 [facility] Comment on above: Performed By: #### 8 9579-7, 93594-8, 5643-2, 95402-7, LIVR, 3040-3, CBCA, BMP #### [facility] ([id number]) [address] [place] [address] 84969 Lymphocytes/100 WBC (Bld) 26.2 % Normal [facility] Comment on above: Performed By: #### 8 9579-7, 09558-7, 5643-2, 38909-5, LIVR, 3040-3, CBCA, BMP #### [facility] ([id number]) [address] [place] [address] 46387 MCH (RBC) [Entitic mass] 33.5 pg Normal 27-34 [facility] Comment on above: Performed By: #### 8 9579-7, 31566-8, 5643-2, 52624-8, LIVR, 3040-3, CBCA, BMP #### [facility] ([id number]) [address] [place] [address] 68934 MCHC (RBC) [Mass/Vol] 33.8 g/dL Normal 32-36 [facility] Comment on above: Performed By: #### 8 9579-7, 01015-6, 5643-2, 77884-0, LIVR, 3040-3, CBCA, BMP #### [facility] ([id number]) [address] [place] [address] 92035 MCV (RBC) [Entitic vol] 99 fL Normal 80-100 [facility] Comment on above: Performed By: #### 8 9579-7, 77303-8, 5643-2, 94372-4, LIVR, 3040-3, CBCA, BMP #### [facility] ([id number]) [address] [place] [address] 05601 Monocytes (Bld) [#/Vol] 0.8 10*3/uL Normal 0-0.9 [facility] Comment on above: Performed By: #### 8 9579-7, 02167-1, 5643-2, 83047-9, LIVR, 3040-3, CBCA, BMP #### [facility] ([id number]) [address] [place] [address] 80442 Monocytes/100 WBC (Bld) 8.3 % Normal [facility] Comment on above: Performed By: #### 8 9579-7, 49700-4, 5643-2, 71152-5, LIVR, 3040-3, CBCA, BMP #### [facility] ([id number]) [address] [place] [address] 29274 Neutrophils/100 WBC (Bld) 63.5 % Normal [facility] Comment on above: Performed By: #### 8 9579-7, 51151-6, 5643-2, 21109-6, LIVR, 3040-3, CBCA, BMP #### [facility] ([id number]) [address] [place] [address] 96014 Platelet mean volume (Bld) [Entitic vol] 8.0 fL Normal 7-12 [facility] Comment on above: Performed By: #### 8 9579-7, 39087-2, 5643-2, 91348-1, LIVR, 3040-3, CBCA, BMP #### [facility] ([id number]) [address] [place] [address] 20214 Platelets (Bld) [#/Vol] 263 10*3/uL Normal 150-450 [facility] Comment on above: Performed By: #### 8 9579-7, 36813-1, 5643-2, 18173-0, LIVR, 3040-3, CBCA, BMP #### [facility] ([id number]) [address] [place] [address] 62278 RBC COUNT 4.28 X10E12/L Normal 3.80-5.20 [facility] Comment on above: Performed By: #### 8 9579-7, 19766-1, 5643-2, 89450-2, LIVR, 3040-3, CBCA, BMP #### [facility] ([id number]) [address] [place] [address] 90380 WBC (Bld) [#/Vol] 9.8 10*3/uL Normal 4.0-11.0 [facility] Comment on above: Performed By: #### 8 9579-7, 72412-1, 5643-2, 00052-1, LIVR, 3040-3, CBCA, BMP #### [facility] ([id number]) [address] [place] [address] 51407 ETHANOLon 06-15-2024 Ethanol [Mass/Vol] mg/dL Normal 0.00-0.08 [facility] Comment on above: Result Comment: This report is intended for use in clinical monitoring or management of patients. Performed By: #### 8 9579-7, 66455-2, 5643-2, 87768-4, LIVR, 3040-3, CBCA, BMP #### [facility] ([id number]) [address] [place] [address] 60602 LIPASEon 06-15-2024 Lipase [Catalytic activity/Vol] 83 U/L High 17-40 [facility] Comment on above: Performed By: #### 8 9579-7, 28506-7, 5643-2, 26041-4, LIVR, 3040-3, CBCA, BMP #### [facility] ([id number]) [address] [place] [address] 63720 LIVER PANELon 06-15-2024 Albumin [Mass/Vol] 4.2 g/dL Normal 3.2-5.3 [facility] Comment on above: Performed By: #### 8 9579-7, 91458-4, 5643-2, 57463-3, LIVR, 3040-3, CBCA, BMP #### [facility] ([id number]) [address] [place] [address] 57945 ALP [Catalytic activity/Vol] 106 U/L Normal 39-130 [facility] Comment on above: Performed By: #### 8 9579-7, 67070-0, 5643-2, 64091-3, LIVR, 3040-3, CBCA, BMP #### [facility] ([id number]) [address] [place] [address] 63564 ALT [Catalytic activity/Vol] 12 U/L Normal 0-31 [facility] Comment on above: Performed By: #### 8 9579-7, 81135-5, 5643-2, 50317-4, LIVR, 3040-3, CBCA, BMP #### [facility] ([id number]) [address] [place] [address] 37376 AST [Catalytic activity/Vol] 18 U/L Normal 0-41 [facility] Comment on above: Performed By: #### 8 9579-7, 21874-6, 5643-2, 53016-7, LIVR, 3040-3, CBCA, BMP #### [facility] ([id number]) [address] [place] [address] 33866 Bilirubin [Mass/Vol] 0.3 mg/dL Normal 0.3-1.2 [facility] Comment on above: Performed By: #### 8 9579-7, 23287-3, 5643-2, 16125-6, LIVR, 3040-3, CBCA, BMP #### [facility] ([id number]) [address] [place] [address] 20897 Bilirubin.indirect [Mass/Vol] mg/dL Normal 0.0-0.4 [facility] Comment on above: Performed By: #### 8 9579-7, 05899-2, 5643-2, 62158-1, LIVR, 3040-3, CBCA, BMP #### [facility] ([id number]) [address] [place] [address] 63363 Protein [Mass/Vol] 7.0 g/dL Normal 6.0-8.0 [facility] Comment on above: Performed By: #### 8 9579-7, 90154-5, 5643-2, 27937-1, LIVR, 3040-3, CBCA, BMP #### [facility] ([id number]) [address] [place] [address] 07000 Lactate (P richard) [Moles/Vol]o n 06-15-2024 LACTATE W/REFLEX 1.1 mmol/L Normal 0.4-2.0 [facility] Comment on above: Result Comment: Result did not trigger repeat Lactate, re-order if needed. Performed By: #### 8 9579-7, 54925-8, 5643-2, 62934-4, LIVR, 3040-3, CBCA, BMP #### [facility] ([id number]) [address] [place] [address] 81771 MAGNESIUMon 06-15-2024 Magnesium [Mass/Vol] 2.1 mg/dL Normal 1.8-2.6 [facility] Comment on above: Performed By: #### 8 9579-7, 54437-5, 5643-2, 54802-3, LIVR, 3040-3, CBCA, BMP #### [facility] ([id number]) [address] [place] [address] 45731 CBC AND AUTO DIFFon 06-01-19 ABSOLUTE BASOPHIL 0.1 X10E9/L Normal 0.0-0.2 [facility] Comment on above: Performed By: #### 8 9579-7, 66888-7, 5643-2, 45376-0, LIVR, 3040-3, CBCA, BMP #### [facility] ([id number]) [address] [place] [address] 84727 ABSOLUTE NEUTROPHIL 7.2 X10E9/L High 1.5-6.6 [facility] Comment on above: Performed By: #### 8 9579-7, 59078-7, 5643-2, 83850-8, LIVR, 3040-3, CBCA, BMP #### [facility] ([id number]) [address] [place] [address] 89387 Basophils/100 WBC (Bld) 1.3 % Normal [facility] Comment on above: Performed By: #### 8 9579-7, 78562-8, 5643-2, 39016-9, LIVR, 3040-3, CBCA, BMP #### [facility] ([id number]) [address] [place] [address] 26036 Eosinophils (Bld) [#/Vol] 0.1 10*3/uL Normal 0.0-0.4 [facility] Comment on above: Performed By: #### 8 9579-7, 61143-6, 5643-2, 00730-3, LIVR, 3040-3, CBCA, BMP #### [facility] ([id number]) [address] [place] [address] 02957 Eosinophils/100 WBC (Bld) 0.9 % Normal [facility] Comment on above: Performed By: #### 8 9579-7, 55000-0, 5643-2, 44507-7, LIVR, 3040-3, CBCA, BMP #### [facility] ([id number]) [address] [place] [address] 57136 Erythrocyte distribution width (RBC) [Ratio] 13.1 % Normal 11.5-15.0 [facility] Comment on above: Performed By: #### 8 9579-7, 64738-3, 5643-2, 85385-1, LIVR, 3040-3, CBCA, BMP #### [facility] ([id number]) [address] [place] [address] 32181 Hematocrit (Bld) [Volume fraction] 40.2 % Normal 35-47 [facility] Comment on above: Performed By: #### 8 9579-7, 54003-7, 5643-2, 63837-0, LIVR, 3040-3, CBCA, BMP #### [facility] ([id number]) [address] [place] [address] 16321 Hemoglobin (Bld) [Mass/Vol] 14.0 g/dL Normal 11.7-15.5 [facility] Comment on above: Performed By: #### 8 9579-7, 39868-3, 5643-2, 24298-2, LIVR, 3040-3, CBCA, BMP #### [facility] ([id number]) [address] [place] [address] 30397 Lymphocytes (Bld) [#/Vol] 2.7 10*3/uL Normal 1.0-3.5 [facility] Comment on above: Performed By: #### 8 9579-7, 22190-3, 5643-2, 88500-1, LIVR, 3040-3, CBCA, BMP #### [facility] ([id number]) [address] [place] [address] 62357 Lymphocytes/100 WBC (Bld) 24.0 % Normal [facility] Comment on above: Performed By: #### 8 9579-7, 22679-5, 5643-2, 76076-7, LIVR, 3040-3, CBCA, BMP #### [facility] ([id number]) [address] [place] [address] 58862 MCH (RBC) [Entitic mass] 34.0 pg Normal 27-34 [facility] Comment on above: Performed By: #### 8 9579-7, 40499-8, 5643-2, 67449-8, LIVR, 3040-3, CBCA, BMP #### [facility] ([id number]) [address] [place] [address] 67180 MCHC (RBC) [Mass/Vol] 34.7 g/dL Normal 32-36 [facility] Comment on above: Performed By: #### 8 9579-7, 28350-3, 5643-2, 91145-3, LIVR, 3040-3, CBCA, BMP #### [facility] ([id number]) [address] [place] [address] 51109 MCV (RBC) [Entitic vol] 98 fL Normal 80-100 [facility] Comment on above: Performed By: #### 8 9579-7, 62709-2, 5643-2, 17486-8, LIVR, 3040-3, CBCA, BMP #### [facility] ([id number]) [address] [place] [address] 95077 Monocytes (Bld) [#/Vol] 1.1 10*3/uL High 0-0.9 [facility] Comment on above: Performed By: #### 8 9579-7, 25083-6, 5643-2, 33574-2, LIVR, 3040-3, CBCA, BMP #### [facility] ([id number]) [address] [place] [address] 64299 Monocytes/100 WBC (Bld) 9.6 % Normal [facility] Comment on above: Performed By: #### 8 9579-7, 24669-2, 5643-2, 87736-9, LIVR, 3040-3, CBCA, BMP #### [facility] ([id number]) [address] [place] [address] 90323 Neutrophils/100 WBC (Bld) 64.2 % Normal [facility] Comment on above: Performed By: #### 8 9579-7, 40326-2, 5643-2, 71593-4, LIVR, 3040-3, CBCA, BMP #### [facility] ([id number]) [address] [place] [address] 00786 Platelet mean volume (Bld) [Entitic vol] 7.8 fL Normal 7-12 [facility] Comment on above: Performed By: #### 8 9579-7, 73060-5, 5643-2, 17094-2, LIVR, 3040-3, CBCA, BMP #### [facility] ([id number]) [address] [place] [address] 74961 Platelets (Bld) [#/Vol] 302 10*3/uL Normal 150-450 [facility] Comment on above: Performed By: #### 8 9579-7, 90493-4, 5643-2, 23674-5, LIVR, 3040-3, CBCA, BMP #### [facility] ([id number]) [address] [place] [address] 02875 RBC COUNT 4.11 X10E12/L Normal 3.80-5.20 [facility] Comment on above: Performed By: #### 8 9579-7, 21505-2, 5643-2, 94216-3, LIVR, 3040-3, CBCA, BMP #### [facility] ([id number]) [address] [place] [address] 32686 WBC (Bld) [#/Vol] 11.2 10*3/uL High 4.0-11.0 [facility] Comment on above: Performed By: #### 8 9579-7, 31925-8, 5643-2, 50166-5, LIVR, 3040-3, CBCA, BMP #### [facility] ([id number]) [address] [place] [address] 07357 COMPREHENSIVE METABOLIC PANE [facility] 05-31-2024 Albumin [Mass/Vol] 4.0 g/dL Normal 3.2-5.3 [facility] Comment on above: Performed By: #### 8 9579-7, 52455-4, 5643-2, 40005-7, LIVR, 3040-3, CBCA, BMP #### [facility] ([id number]) [address] [place] [address] 50639 ALP [Catalytic activity/Vol] 97 U/L Normal 39-130 [facility] Comment on above: Performed By: #### 8 9579-7, 31383-2, 5643-2, 63752-2, LIVR, 3040-3, CBCA, BMP #### [facility] ([id number]) [address] [place] [address] 94598 ALT [Catalytic activity/Vol] 12 U/L Normal 0-31 [facility] Comment on above: Performed By: #### 8 9579-7, 22674-6, 5643-2, 39768-1, LIVR, 3040-3, CBCA, BMP #### [facility] ([id number]) [address] [place] [address] [place] [address] Anion gap [Moles/Vol] 7 mmol/L Normal 5-15 [facility] Comment on above: Performed By: #### 8 9579-7, 87773-1, 5643-2, 12061-0, LIVR, 3040-3, CBCA, BMP #### [facility] ([id number]) [address] [place] [address] 49511 AST [Catalytic activity/Vol] 19 U/L Normal 0-41 [facility] Comment on above: Performed By: #### 8 9579-7, 08961-7, 5643-2, 12245-4, LIVR, 3040-3, CBCA, BMP #### [facility] ([id number]) [address] [place] [address] 24672 Bilirubin [Mass/Vol] 0.4 mg/dL Normal 0.3-1.2 [facility] Comment on above: Performed By: #### 8 9579-7, 08803-6, 5643-2, 57580-4, LIVR, 3040-3, CBCA, BMP #### [facility] ([id number]) [address] [place] [address] 01816 Calcium [Mass/Vol] 9.3 mg/dL Normal 8.5-10.5 [facility] Comment on above: Performed By: #### 8 9579-7, 00705-5, 5643-2, 42312-6, LIVR, 3040-3, CBCA, BMP #### [facility] ([id number]) [address] [place] [address] 89537 Chloride [Moles/Vol] 106 mmol/L Normal 98-109 [facility] Comment on above: Performed By: #### 8 9579-7, 14456-0, 5643-2, 64633-2, LIVR, 3040-3, CBCA, BMP #### [facility] ([id number]) [address] [place] [address] 34740 CO2 [Moles/Vol] 23 mmol/L Normal 22-32 [facility] Comment on above: Performed By: #### 8 9579-7, 65232-4, 5643-2, 82930-4, LIVR, 3040-3, CBCA, BMP #### [facility] ([id number]) [address] [place] [address] 87742 Creatinine [Mass/Vol] 0.60 mg/dL Normal 0.40-1.00 [facility] Comment on above: Result Comment: METH OD TRACEABLE TO IDMS STANDARD Performed By: #### 8 9579-7, 41803-7, 5643-2, 30164-4, LIVR, 3040-3, CBCA, BMP #### [facility] ([id number]) [address] [place] [address] 93016 eGFR (CKD-EPI) NON-RACE DEPENDENT >90 Normal >59 [facility] Comment on above: Result Comment: Reported eGFR is based on the CKD-EPI 2020 equation that does not use a race coefficient. Performed By: #### 8 9579-7, 26313-6, 5643-2, 76503-3, LIVR, 3040-3, CBCA, BMP #### [facility] ([id number]) [address] [place] [address] 67744 Glucose [Mass/Vol] 101 mg/dL High 65-99 [facility] Comment on above: Performed By: #### 8 9579-7, 66944-5, 5643-2, 11089-5, LIVR, 3040-3, CBCA, BMP #### [facility] ([id number]) [address] [place] [address] 86465 Potassium [Moles/Vol] 3.6 mmol/L Normal 3.5-5.0 [facility] Comment on above: Performed By: #### 8 9579-7, 79375-3, 5643-2, 82781-4, LIVR, 3040-3, CBCA, BMP #### [facility] ([id number]) [address] [place] [address] 17266 Protein [Mass/Vol] 7.2 g/dL Normal 6.0-8.0 [facility] Comment on above: Performed By: #### 8 9579-7, 63390-1, 5643-2, 30109-8, LIVR, 3040-3, CBCA, BMP #### [facility] ([id number]) [address] [place] [address] 92462 Sodium [Moles/Vol] 136 mmol/L Normal 134-146 [facility] Comment on above: Performed By: #### 8 9579-7, 04087-9, 5643-2, 56557-7, LIVR, 3040-3, CBCA, BMP #### [facility] ([id number]) [address] [place] [address] 45917 Urea nitrogen [Mass/Vol] 11 mg/dL Normal 5-23 [facility] Comment on above: Performed By: #### 8 9579-7, 93888-5, 5643-2, 45903-2, LIVR, 3040-3, CBCA, BMP #### [facility] ([id number]) [address] [place] [address] 12416 LIPASEon 05-31-2024 Lipase [Catalytic activity/Vol] 104 U/L High 17-40 [facility] Comment on above: Performed By: #### 8 9579-7, 53757-0, 5643-2, 85172-9, LIVR, 3040-3, CBCA, BMP #### [facility] ([id number]) [address] [place] [address] 18781 Basic Metabolic Panelon 03-11 Anion gap [Moles/Vol] 8 mmol/L Low 9 - 16 mmol/L [facility] Calcium [Mass/Vol] 8.3 mg/dL Low 8.6 - 10. 4 mg/dL [facility] Chloride [Moles/Vol] 108 mmol/L High 98 - 10 7 mmol/L [facility] CO2 [Moles/Vol] 23 mmol/L 20 - 31 mmol/L [facility] Creatinine [Mass/Vol] 0.6 mg/dL 0.50 - 0.90 mg/dL [facility] Est, Kaylyn Gordon Rate - PINF [facility] Comment on above: These results are not [...] 83 mg/dL 74 - 99 mg/dL [facility] Potassium [Moles/Vol] 4.0 mmol/L 3.7 - 5.3 mmol/L [facility] Sodium [Moles/Vol] 139 mmol/L 136 - 145 mmol/L [facility] Urea nitrogen [Mass/Vol] 10 mg/dL 6 - 20 mg/dL [facility] Urea nitrogen/Creatinine [Mass ratio] 17 mg/mg 9 - 20 [facility] Basic Metabolic Profon 04-07 Anion gap [Moles/Vol] 8 mmol/L Low 9-16 [facility] Comment on above: Performed By: #### B LIZY LIVP, LIP #### [facility] [address] [place] [address] [employer] Le[employer] Trimmer: Ion Jasso MD BUN/CRE Ratio 17 Normal - [facility] Comment on above: Performed By: #### B LIZY LIVP, LIP #### [facility] [address] [place] [address] [employer] Leather Trimmer: Ion Jasso MD Calcium [Mass/Vol] 8.3 mg/dL Low 8.6-10.4 [facility] Comment on above: Performed By: #### B MP, LIVP, LIP #### [facility] [address] [place] [address] [employer] Leather Trimmer: Ion Jasso MD Chloride [Moles/Vol] 108 mmol/L High 98-107 [facility] Comment on above: Performed By: #### B MP, LIVP, LIP #### [facility] [address] [place], [place] [id number] [employer] Le[employer] Trimmer: Ion Jasso MD CO2 [Moles/Vol] 23 mmol/L Normal 20-31 [facility] Comment on above: Performed By: #### B MP, LIVP, LIP #### [facility] [address] [place] [address] [employer] Le[employer] Trimmer: Ion Jasso MD Creatinine [Mass/Vol] 0.6 mg/dL Normal 0.50-0.90 [facility] Comment on above: Performed By: #### B MP, LIVP, LIP #### [facility] [address] [place] [address] [employer] Leather Trimmer: Ion Jasso MD GFR/1.73 sq M.predicted among non-blacks MDRD (S/P/Bld) [Vol rate/Area] mL/min/{1.73_m2} Normal >60 [facility] Comment on above: Result Comment: These results [...] By: #### B MP, LIVP, LIP #### [facility] [address] [place] [address] [employer] Le[employer] Trimmer: Ion Jasso MD Glucose [Mass/Vol] 83 mg/dL Normal 74-99 [facility] Comment on above: Performed By: #### B MP, LIVP, LIP #### [facility] [address] [place] [address] [employer] Leather Trimmer: Ion Jasso MD Potassium [Moles/Vol] 4.0 mmol/L Normal 3.7-5.3 [facility] Comment on above: Performed By: #### B MP, LIVP, LIP #### [facility] [address] [place] [address] [employer] Le[employer] Trimmer: Ion Jasso MD Sodium [Moles/Vol] 139 mmol/L Normal 136-145 [facility] Comment on above: Performed By: #### B LIZY LIVP, LIP #### [facility] [address] [place] [address] [employer] Leather Trimmer: Ion Jasso MD Urea nitrogen [Mass/Vol] 10 mg/dL Normal 6-20 [facility] Comment on above: Performed By: #### B LIZY LIVP, LIP #### [facility] [address] [place] [address] [employer] Leather Trimmer: Ion Jasso MD CBC with Auto Differentialon 04-07-2024 Basophils (Bld) [#/Vol] 0.08 10*3/uL [facility] Basophils/100 WBC (Bld) 1 % 0 - 2 % [facility] Eosinophils (Bld) [#/Vol] 0.13 10*3/uL [facility] Eosinophils/100 WBC (Bld) 1 % 1 - 4 % [facility] Erythrocyte distribution width (RBC) [Ratio] 13.1 % 11.8 - 14.4 % [facility] Hematocrit (Bld) [Volume fraction] 40.1 % 36.3 - 47.1 % [facility] Hemoglobin (Bld) [Mass/Vol] 14.0 g/dL 11.9 - 15.1 g/dL [facility] [facility] Immature granulocytes (Bld) [#/Vol] 0.03 10*3/uL [facility] Immature granulocytes/100 WBC (Bld) 0 % 0 [facility] Interpretation and review of laboratory results Abnormal [facility] Lymphocytes/100 WBC (Bld) 26 % 24 - 43 % [facility] Lymphocytes/100 WBC (Bld) 2.39 % [facility] MCH (RBC) [Entitic mass] 33.9 pg High 25.2 - 33.5 pg [facility] MCHC (RBC) [Mass/Vol] 34.9 g/dL High 28.4 - 34.8 g/dL [facility] MCV (RBC) [Entitic vol] 97.1 fL 82.6 - 102.9 fL [facility] Monocytes/100 WBC (Bld) 8 % 3 - 12 % [facility] Monocytes/100 WBC (Bld) 0.76 % [facility] Neutrophils/100 WBC (Bld) 64 % 36 - 65 % [facility] Nucleated RBC/100 WBC (Bld) [Ratio] 0.0 % 0.0 per 100 WBC [facility] Platelet mean volume (Bld) [Entitic vol] 10.6 fL 8.1 - 13.5 fL [facility] Platelets (Bld) [#/Vol] 267 10*3/uL [facility] RBC (Bld) [#/Vol] 4.13 10*6/uL 3.95 - 5.11 m/uL [facility] Segmented neutrophils/100 WBC (Bld) 5.87 % [facility] WBC other (Bld) [#/Vol] 9.3 [facility] CBC with Diffon 04-07-2024 Abs. Basophil 0.08 k/uL Normal 0.00-0.20 [facility] Comment on above: Performed By: #### B MP, LIVP, LIP #### [facility] [address] [place] [address] Black Leather Trimmer: Ion Jasso MD Abs.Imm.Granulocyte 0.03 k/uL Normal 0.00-0.30 [facility] Comment on above: Performed By: #### B MP, LIVP, LIP #### [facility] [address] [place] [address] Dr. [place], [place] [address] Black Leather Trimmer: Ion Jasso MD Abs.Neutrophil (Seg) 5.87 k/uL Normal 1.50-8.10 [facility] Comment on above: Performed By: #### B MP, LIVP, LIP #### [address] [place] [address] Black Leather Trimmer: Ion Jasso MD Basophils/100 WBC (Bld) 1 % Normal 0-2 [facility] Comment on above: Performed By: #### B MP, LIVP, LIP #### [address] [address] Black Leather Trimmer: Ion Jasso MD Eosinophils (Bld) [#/Vol] 0.13 10*3/uL Normal 0.00-0.44 [facility] Comment on above: Performed By: #### B MP, LIVP, LIP #### [address] [address] Black Leather Trimmer: Ion Jasso MD Eosinophils/100 WBC (Bld) 1 % Normal 1-4 [facility] Comment on above: Performed By: #### B MP, LIVP, LIP #### [address] [place], [place] [address] Black Leather Trimmer: Ion Jasso MD Erythrocyte distribution width (RBC) [Ratio] 13.1 % Normal 11.8-14.4 [facility] Comment on above: Performed By: #### B MP, LIVP, LIP #### [address] [place], [facility] Black Leather Trimmer: Ion Jasso MD Hematocrit (Bld) [Volume fraction] 40.1 % Normal 36.3-47.1 [facility] Comment on above: Performed By: #### B MP, LIVP, LIP #### [address] [place], [place] 930[address]83 Black Leather Trimmer: Ion Jasso MD Hemoglobin (Bld) [Mass/Vol] 14.0 g/dL Normal 11.9-15.1 [facility] Comment on above: Performed By: #### B MP, LIVP, LIP #### [address] [place], [place] [address] Black Leather Trimmer: Ion Jasso MD Immature granulocytes/100 WBC (Bld) 0 % Normal 0 [facility] Comment on above: Performed By: #### B MP, LIVP, LIP #### [address] [place], [facility] Black Leather Trimmer: Ion Jasso MD Lymphocytes (Bld) [#/Vol] 2.39 10*3/uL Normal 1.10-3.70 [facility] Comment on above: Performed By: #### B MP, LIVP, LIP #### [address] [place], [facility] Black Leather Trimmer: Ion Jasso MD Lymphocytes/100 WBC (Bld) 26 % Normal 24-43 [facility] Comment on above: Performed By: #### B MP, LIVP, LIP #### [address] [place], [place] [address] Black Leather Trimmer: Ion Jasso MD MCH (RBC) [Entitic mass] 33.9 pg High 25.2-33.5 [facility] Comment on above: Performed By: #### B MP, LIVP, LIP #### [address] [place], [place] 9378183 Black Leather Trimmer: Ion Jasso MD MCHC (RBC) [Mass/Vol] 34.9 g/dL High 28.4-34.8 [facility] Comment on above: Performed By: #### B MP, LIVP, LIP #### [facility] [address] [place] [address] Black Leather Trimmer: Ion Jasso MD MCV (RBC) [Entitic vol] 97.1 fL Normal 82.6-102.9 [facility] Comment on above: Performed By: #### B MP, LIVP, LIP #### [facility] [address] [place], [facility] Black Leather Trimmer: Ion Jasso MD Monocytes (Bld) [#/Vol] 0.76 10*3/uL Normal 0.10-1.20 [facility] Comment on above: Performed By: #### B MP, LIVP, LIP #### [address] [place], [place] 3448383 Black Leather Trimmer: Ion Jasso MD Monocytes/100 WBC (Bld) 8 % Normal 3-12 [facility] Comment on above: Performed By: #### B MP, LIVP, LIP #### [address] [place], [facility] Black Leather Trimmer: Ion Jasso MD Neutrophil (Seg) 64 % Normal 36-65 [facility] Comment on above: Performed By: #### B MP, LIVP, LIP #### [address] [place], [facility] Black Leather Trimmer: Ion Jasso MD NRBC Automated 0.0 per 100 WBC Normal 0.0 [facility] Comment on above: Performed By: #### B MP, LIVP, LIP #### [address] [place], [facility] Black Leather Trimmer: Ion Jasso MD Platelet mean volume (Bld) [Entitic vol] 10.6 fL Normal 8.1-13.5 [facility] Comment on above: Performed By: #### B MP, LIVP, LIP #### [address] [place], [place] 2317983 Black Leather Trimmer: Ion Jasso MD Platelets (Bld) [#/Vol] 267 10*3/uL Normal 138-453 [facility] Comment on above: Performed By: #### B MP, LIVP, LIP #### [address] [place], [place] 893[address]83 Black Leather Trimmer: Ion Jasso MD RBC (Bld) [#/Vol] 4.13 10*6/uL Normal 3.95-5.11 [facility] Comment on above: Performed By: #### B MP, LIVP, LIP #### [address] [place], [place] 4833983 Black Leather Trimmer: Ion Jasso MD WBC (Bld) [#/Vol] 9.3 10*3/uL Normal 3.5-11.3 [facility] Comment on above: Performed By: #### B MP, LIVP, LIP #### [address] [place], [place] 5684083 Black Leather Trimmer: Ion Jasso MD CT ABDOMEN PELVIS W [...] Sarah Tran MD 04/07/24 Final result Normal [facility] CT Abdomen and Pelvis W cont rast Roxana 04-07-2024 1. No acute intra-abdominal or pelvic abnormalities are noted. 2. Stable mild dilatation of the extrahepatic biliary tree and pancreatic duct. 3. Status post cholecystectomy. [facility]IS CONSOLIDATED EXAMINATION: CT OF THE [...] lytic or blastic osseous lesions are identified. [facility] CONSOLIDATED Sarah Tran MD - 04/07/2024 EXAMINATION: [...] and pancreatic duct. 3. Status post [facility]olecystectomy. [facility] observation (narrative) [facility] [employer] CT Abdomen and Pelvis W cont rast IVOrdered By: Sarah Tran on 04-07-2024 [facility] Work Phone: Hepatic Function Panelon Albumin [Mass/Vol] 3.9 g/dL 3.5 - 5.2 g/dL [facility] [employer] Albumin/Globulin [Mass ratio] 1.7 {ratio} 1.0 - 2.5 [facility] ALP [Catalytic activity/Vol] 119 U/L High 35 - 104 U/L [facility] ALT [Catalytic activity/Vol] 11 U/L 10 - 35 U/L [facility] AST [Catalytic activity/Vol] 30 U/L 10 - 35 U/L [facility] Bilirubin [Mass/Vol] mg/dL 0.00 - 1.20 mg/dL [facility] Bilirubin.direct [Mass/Vol] mg/dL 0.00 - 0.30 mg/dL [facility] Bilirubin.indirect [Mass/Vol] Can not be calculated 0.0 - 1.0 mg/dL [facility] Protein [Mass/Vol] 6.1 g/dL Low 6.6 - 8.7 g/dL [facility] Lipaseon 04-07-2024 Lipase [Catalytic activity/Vol] 266 U/L High 13 - 60 U/L [facility] Lipase [Catalytic activity/Vol] 266 U/L High 13-60 [facility] Comment on above: Performed By: #### B MP, LIVP, LIP #### [facility] [address] [place] [address] Black Leather Trimmer: Ion Jasso MD Liver Profileon 04-07-2024 Albumin [Mass/Vol] 3.9 g/dL Normal 3.5-5.2 [facility] Comment on above: Performed By: #### B MP, LIVP, LIP #### [facility] [address] [place], [place] [id number] Black Leather Trimmer: Ion Jasso MD Albumin/Glob Ratio 1.7 Normal 1.0-2.5 [facility] Comment on above: Performed By: #### B MP, LIVP, LIP #### [facility] [address] [place] [address] Black Leather Trimmer: Ion Jasso MD Alkaline Phos 119 U/L High 35-104 [facility] Comment on above: Performed By: #### B MP, LIVP, LIP #### [facility] [address] [place], [place] 7046283 Black Leather Trimmer: Ion Jasso MD ALT [Catalytic activity/Vol] 11 U/L Normal 10-35 [facility] Comment on above: Performed By: #### B MP, LIVP, LIP #### [facility] [address] [place], [place] 9605883 Black Leather Trimmer: Ion Jasso MD AST [Catalytic activity/Vol] 30 U/L Normal 10-35 [facility] Comment on above: Performed By: #### B MP, LIVP, LIP #### [facility] [address] [place], [place] 6930483 Black Leather Trimmer: Ion Jasso MD Bilirubin [Mass/Vol] mg/dL Normal 0.00-1.20 [facility] Comment on above: Performed By: #### B MP, LIVP, LIP #### [facility] [address] [place] [address] Dr. [place], [place] 0444883 Black Leather Trimmer: Ion Jasso MD Bilirubin, Indirect Can not be calculated Normal 0.0-1 .0 [facility] Comment on above: Performed By: #### B MP, LIVP, LIP #### [facility] [address] [place] [address] Dr. [place], [place] [phone] Black Leather Trimmer: Ion Jasso MD Bilirubin.indirect [Mass/Vol] mg/dL Normal 0.00-0.30 [facility] Comment on above: Performed By: #### B MP, LIVP, LIP #### [facility] [address] [place] [address] Dr. [place], [place] [phone] Black Leather Trimmer: Ion Jasso MD Protein [Mass/Vol] 6.1 g/dL Low 6.6-8.7 [facility] Comment on above: Performed By: #### B MP, LIVP, LIP #### [facility] [address] [place], [place] 5202583 Black Leather Trimmer: Ion Jasso MD No Panel Informationon 04-07 Interpretation and review of laboratory results Abnormal [facility] Specimen Rejectionon 025 Reason for rejection Unable to perform testing: Specimen hemolyzed. [facility] Comment on above: Performed By: #### B MP, LIVP, LIP #### [facility] [address] [place] [address] Black Leather Trimmer: Ion Jasso MD Source of sample .BLOOD [facility] Comment on above: Performed By: #### B MP, LIVP, LIP #### [facility] [address] [place] [address] Black Leather Trimmer: Ion Jasso MD Test ordered LIP,LIVP, BMP [facility] Comment on above: Performed By: #### B MP, LIVP, LIP #### [facility] [address] [place] [address] Black Leather Trimmer: Ion Jasso MD Urinalysison 04-07-2024 Bilirubin Ql (U) Negative NEGATIVE [facility] Clarity (U) Clear Clear [facility] Color (U) Yellow Yellow [facility] Glucose Test strip (U) [Mass/Vol] Negative NEGATIVE mg/dL [facility] Hemoglobin Auto test strip Ql (U) Negative NEGATIVE [facility] Ketones (U) [Mass/Vol] Negative NEGAT MATTHIAS mg/dL [facility] Leukocyte esterase Test strip Ql (U) Negative NEGATIVE [facility] Nitrite Ql (U) Negative NEGATIVE [facility] pH (U) 5.5 [pH] 5.0 - 9.0 [facility] Protein (U) [Mass/Vol] Negative NEGAT MATTHIAS mg/dL [facility] Specific gravity (U) [Rel density] 1.010 1.010 - 1.020 [facility] Urobilinogen Qn (U) Normal 0.0 - 1. 0 EU/dL [facility] Urinalysis, Routineon 2024 Bilirubin, SemiQt,Ur Negative Normal NEG [facility] Comment on above: Performed By: #### B MP, LIVP, LIP #### [facility] [address] [place], [place] 4278483 Black Leather Trimmer: Ion Jasso MD Blood, Urine Negative Normal NEG [facility] Comment on above: Performed By: #### B MP, LIVP, LIP #### [facility] [address] [place], [place] 7750483 Black Leather Trimmer: Ion Jasso MD Clarity (U) Clear Normal CLEAR [facility] Comment on above: Performed By: #### B MP, LIVP, LIP #### [facility] [address] [place], [place] 7513683 Black Leather Trimmer: Ion Jasso MD Color (U) Yellow Normal YEL [facility] Comment on above: Performed By: #### B MP, LIVP, LIP #### [facility] [address] [place] [address] Dr. [place], [place] 9876083 Black Leather Trimmer: Ion Jasso MD Glucose Ql (U) Negative Normal NEG [facility] Comment on above: Performed By: #### B MP, LIVP, LIP #### [address] [place], [place] 0185183 Black Leather Trimmer: Ion Jasso MD Ketones Ql (U) Negative Normal NEG [facility] Comment on above: Performed By: #### B MP, LIVP, LIP #### [address] [place], [place] 8434883 Black Leather Trimmer: Ion Jasso MD Leukocyte esterase Test strip Ql (U) Negative Normal NEG [facility] Comment on above: Performed By: #### B MP, LIVP, LIP #### [address] [place], [place] 9998983 Black Leather Trimmer: Ion Jasso MD Nitrite,Ur Negative Normal NEG [facility] Comment on above: Performed By: #### B MP, LIVP, LIP #### [facility] [address] [place] [address] Dr. [place], [place] 1456983 Black Leather Trimmer: Ion Jasso MD PH,Ur 5.5 Normal 5.0-9.0 [facility] Comment on above: Performed By: #### B MP, LIVP, LIP #### [facility] [address] [place], [place] [address]247883 Black Leather Trimmer: Ion Jasso MD Protein Ql (U) Negative Normal NEG [facility] Comment on above: Performed By: #### B MP, LIVP, LIP #### [facility] [address] [place], [place] 8843483 Black Leather Trimmer: Ion Jasso MD Spec. [place],Ur 1.010 Normal 1.010-1.02 0 [facility] Comment on above: Performed By: #### B MP, LIVP, LIP #### [address] [place], [place] 7702683 Black Leather Trimmer: Ion Jasso MD Urobilinogen,Ur Normal Normal 0.0-1.0 [facility] Comment on above: Performed By: #### B MP, LIVP, LIP #### [address] [place], [place] 7273083 Black Leather Trimmer: Ion Jasso MD CBC AND AUTO DIFFon 10-20 25 ABSOLUTE BASOPHIL 0.1 X10E9/L Normal 0.0-0.2 [facility] Comment on above: Performed By: #### 8 9579-7, 34328-5, 5643-2, 86168-1, LIVR, 3040-3, CBCA, BMP #### [facility] ([id number]) [address] [place] [address], [place] [address] ABSOLUTE NEUTROPHIL 7.7 X10E9/L High 1.5-6.6 [facility] Comment on above: Performed By: #### 8 9579-7, 04039-4, 5643-2, 30628-3, LIVR, 3040-3, CBCA, BMP #### [facility] ([id number]) [address] [place] [address] Basophils/100 WBC (Bld) 0.8 % Normal [facility] Comment on above: Performed By: #### 8 9579-7, 32949-9, 5643-2, 39514-2, LIVR, 3040-3, CBCA, BMP #### [facility] ([id number]) [address] [place] [address] Eosinophils (Bld) [#/Vol] 0.1 10*3/uL Normal 0.0-0.4 [facility] Comment on above: Performed By: #### 8 9579-7, 61094-4, 5643-2, 70749-7, LIVR, 3040-3, CBCA, BMP #### [facility] ([id number]) [address] [place] [address] 69[address] Eosinophils/100 WBC (Bld) 0.5 % Normal [facility] Comment on above: Performed By: #### 8 9579-7, 80201-5, 5643-2, 61965-1, LIVR, 3040-3, CBCA, BMP #### [facility] ([id number]) [address] [place] [address] 206[address] Erythrocyte distribution width (RBC) [Ratio] 13.5 % Normal 11.5-15.0 [facility] Comment on above: Performed By: #### 8 9579-7, 52025-3, 5643-2, 34756-8, LIVR, 3040-3, CBCA, BMP #### [facility] ([id number]) [address] [place] [address] 70395 Hematocrit (Bld) [Volume fraction] 48.7 % High 35-47 [facility] Comment on above: Performed By: #### 8 9579-7, 70927-2, 5643-2, 46066-7, LIVR, 3040-3, CBCA, BMP #### [facility] ([id number]) [address] [place] [address] 21968 Hemoglobin (Bld) [Mass/Vol] 16.5 g/dL High 11.7-15.5 [facility] Comment on above: Performed By: #### 8 9579-7, 23992-8, 5643-2, 69353-4, LIVR, 3040-3, CBCA, BMP #### [facility] ([id number]) [address] [place] [address] 21637 Lymphocytes (Bld) [#/Vol] 2.0 10*3/uL Normal 1.0-3.5 [facility] Comment on above: Performed By: #### 8 9579-7, 11664-1, 5643-2, 84702-7, LIVR, 3040-3, CBCA, BMP #### [facility] ([id number]) [address] [place] [address] 58398 Lymphocytes/100 WBC (Bld) 19.0 % Normal [facility] Comment on above: Performed By: #### 8 9579-7, 26252-9, 5643-2, 61986-6, LIVR, 3040-3, CBCA, BMP #### [facility] ([id number]) [address] [place] [address] 42949 MCH (RBC) [Entitic mass] 33.5 pg Normal 27-34 [facility] Comment on above: Performed By: #### 8 9579-7, 05627-1, 5643-2, 23770-0, LIVR, 3040-3, CBCA, BMP #### [facility] ([id number]) [address] [place] [address] 88045 MCHC (RBC) [Mass/Vol] 33.9 g/dL Normal 32-36 [facility] Comment on above: Performed By: #### 8 9579-7, 00975-9, 5643-2, 05668-8, LIVR, 3040-3, CBCA, BMP #### [facility] ([id number]) [address] [place] [address] 03777 MCV (RBC) [Entitic vol] 99 fL Normal 80-100 [facility] Comment on above: Performed By: #### 8 9579-7, 67819-3, 5643-2, 69580-2, LIVR, 3040-3, CBCA, BMP #### [facility] ([id number]) [address] [place] [address] 88520 Monocytes (Bld) [#/Vol] 0.8 10*3/uL Normal 0-0.9 [facility] Comment on above: Performed By: #### 8 9579-7, 50854-7, 5643-2, 70097-0, LIVR, 3040-3, CBCA, BMP #### [facility] ([id number]) [address] [place] [address] 90621 Monocytes/100 WBC (Bld) 7.4 % Normal [facility] Comment on above: Performed By: #### 8 9579-7, 68786-1, 5643-2, 92188-5, LIVR, 3040-3, CBCA, BMP #### [facility] ([id number]) [address] [place] [address] 69387 Neutrophils/100 WBC (Bld) 72.3 % Normal [facility] Comment on above: Performed By: #### 8 9579-7, 04474-1, 5643-2, 58003-3, LIVR, 3040-3, CBCA, BMP #### [facility] ([id number]) [address] [place] [address] 93912 Platelet mean volume (Bld) [Entitic vol] 8.1 fL Normal 7-12 [facility] Comment on above: Performed By: #### 8 9579-7, 49442-7, 5643-2, 67986-4, LIVR, 3040-3, CBCA, BMP #### [facility] ([id number]) [address] [place] [address] 46121 Platelets (Bld) [#/Vol] 304 10*3/uL Normal 150-450 [facility] Comment on above: Performed By: #### 8 9579-7, 30760-9, 5643-2, 53399-1, LIVR, 3040-3, CBCA, BMP #### [facility] ([id number]) [address] [place] [address] 44013 RBC COUNT 4.92 X10E12/L Normal 3.80-5.20 [facility] Comment on above: Performed By: #### 8 9579-7, 48796-9, 5643-2, 57374-3, LIVR, 3040-3, CBCA, BMP #### [facility] ([id number]) [address] [place] [address] 26106 WBC (Bld) [#/Vol] 10.7 10*3/uL Normal 4.0-11.0 [facility] Comment on above: Performed By: #### 8 9579-7, 27469-1, 5643-2, 52301-1, LIVR, 3040-3, CBCA, BMP #### [facility] ([id number]) [address] [place] [address] 91798 COMPREHENSIVE METABOLIC PANE Nimesh 03-18-2024 Albumin [Mass/Vol] 4.7 g/dL Normal 3.2-5.3 [facility] Comment on above: Performed By: #### 8 9579-7, 94837-1, 5643-2, 73414-0, LIVR, 3040-3, CBCA, BMP #### [facility] ([id number]) [address] [place] [address] 31446 ALP [Catalytic activity/Vol] 153 U/L High 39-130 [facility] Comment on above: Performed By: #### 8 9579-7, 70451-7, 5643-2, 59651-6, LIVR, 3040-3, CBCA, BMP #### [facility] ([id number]) [address] [place] [address] 07481 ALT [Catalytic activity/Vol] 18 U/L Normal 0-31 [facility] Comment on above: Performed By: #### 8 9579-7, 38886-7, 5643-2, 67481-9, LIVR, 3040-3, CBCA, BMP #### [facility] ([id number]) [address] [place] [address] 26838 Anion gap [Moles/Vol] 9 mmol/L Normal 5-15 [facility] Comment on above: Performed By: #### 8 9579-7, 77295-3, 5643-2, 88848-2, LIVR, 3040-3, CBCA, BMP #### [facility] ([id number]) [address] [place] [address] 08041 AST [Catalytic activity/Vol] 26 U/L Normal 0-41 [facility] Comment on above: Performed By: #### 8 9579-7, 67990-9, 5643-2, 33547-6, LIVR, 3040-3, CBCA, BMP #### [facility] ([id number]) [address] [place] [address] 78595 Bilirubin [Mass/Vol] 0.8 mg/dL Normal 0.3-1.2 [facility] Comment on above: Performed By: #### 8 9579-7, 11673-9, 5643-2, 50086-0, LIVR, 3040-3, CBCA, BMP #### [facility] ([id number]) [address] [place] [address] 33829 Calcium [Mass/Vol] 10.9 mg/dL High 8.5-10.5 [facility] Comment on above: Performed By: #### 8 9579-7, 82617-2, 5643-2, 85403-5, LIVR, 3040-3, CBCA, BMP #### [facility] ([id number]) [address] [place] [address] 47071 Chloride [Moles/Vol] 104 mmol/L Normal 98-109 [facility] Comment on above: Performed By: #### 8 9579-7, 80798-7, 5643-2, 82898-6, LIVR, 3040-3, CBCA, BMP #### [facility] ([id number]) [address] [place] [address] 60516 CO2 [Moles/Vol] 27 mmol/L Normal 22-32 [facility] Comment on above: Performed By: #### 8 9579-7, 77268-9, 5643-2, 12343-7, LIVR, 3040-3, CBCA, BMP #### [facility] ([id number]) [address] [place] [address] 40945 Creatinine [Mass/Vol] 0.78 mg/dL Normal 0.40-1.00 [facility] Comment on above: Result Comment: METH OD TRACEABLE TO IDMS STANDARD Performed By: #### 8 9579-7, 21910-2, 5643-2, 86947-7, LIVR, 3040-3, CBCA, BMP #### [facility] ([id number]) [address] [place] [address] 36567 eGFR (CKD-EPI) NON-RACE DEPENDENT >90 Normal >59 [facility] Comment on above: Result Comment: Reported eGFR is based on the CKD-EPI 2020 equation that does not use a race coefficient. Performed By: #### 8 9579-7, 83054-8, 5643-2, 36055-8, LIVR, 3040-3, CBCA, BMP #### [facility] ([id number]) [address] [place] [address] 47815 Glucose [Mass/Vol] 103 mg/dL High 65-99 [facility] Comment on above: Performed By: #### 8 9579-7, 19008-9, 5643-2, 26410-0, LIVR, 3040-3, CBCA, BMP #### [facility] ([id number]) [address] [place] [address] 37764 Potassium [Moles/Vol] 4.5 mmol/L Normal 3.5-5.0 [facility] Comment on above: Performed By: #### 8 9579-7, 65710-9, 5643-2, 60559-2, LIVR, 3040-3, CBCA, BMP #### [facility] ([id number]) [address] [place] [address] 04516 Protein [Mass/Vol] 8.2 g/dL High 6.0-8.0 [facility] Comment on above: Performed By: #### 8 9579-7, 65781-9, 5643-2, 83570-4, LIVR, 3040-3, CBCA, BMP #### [facility] ([id number]) [address] [place] [address] 47434 Sodium [Moles/Vol] 140 mmol/L Normal 134-146 [facility] Comment on above: Performed By: #### 8 9579-7, 05321-9, 5643-2, 05095-1, LIVR, 3040-3, CBCA, BMP #### [facility] ([id number]) [address] [place] [address] 98341 Urea nitrogen [Mass/Vol] 11 mg/dL Normal 5-23 [facility] Comment on above: Performed By: #### 8 9579-7, 71763-7, 5643-2, 51680-7, LIVR, 3040-3, CBCA, BMP #### [facility] ([id number]) [address] [place] [address] ABDOMEN AND PELVIS W CONT on [...] Cano MD on 03/18/2024 3:38 PM Normal [facility] LIPASEon 03-18-2024 Lipase [Catalytic activity/Vol] 73 U/L High 17-40 [facility] Comment on above: Performed By: #### 8 9579-7, 64620-2, 5643-2, 45216-4, LIVR, 3040-3, CBCA, BMP #### [facility] ([id number]) [address] [place] [address] 64784 UPPER EUSon 01-19-2024 [facility] Patient Name: Chioma Rainey Procedure Date: 01/19/2024 9:15 AM Date of : 1970 Admit Type: Outpatient Age: 53 Room: EUS Proc Room 01 Gender: Female Note Status: Finalized Attending MD: Sabrina Dee MD, MPH, [id number] Procedure: Upper EUS Indications: Celiac plexus block for pain secondary to chronic pancreatitis Providers: Sabrina Dee MD, MPH (Doctor), Daniel Christiansen MD (Fellow), Love Zeng, JOSE LUIS (Nurse), Lotus Rudd RN (Nurse), LOW Emanuel [...] o (more content not included)... LAB, [facility] Radiology Study observation (narrative) [facility] CBC AND AUTO DIFFon 01-14-20 24 ABSOLUTE BASOPHIL 0.1 X10E9/L Normal 0.0-0.2 [facility] Comment on above: Performed By: #### 8 9579-7, 76730-3, 5643-2, 08351-5, LIVR, 3040-3, CBCA, BMP #### [facility] ([id number]) [address] [place] [address] 71719 ABSOLUTE NEUTROPHIL 6.8 X10E9/L High 1.5-6.6 [facility] Comment on above: Performed By: #### 8 9579-7, 92200-0, 5643-2, 87846-4, LIVR, 3040-3, CBCA, BMP #### [facility] ([id number]) [address] [place] [address] 15755 Basophils/100 WBC (Bld) 0.8 % Normal [facility] Comment on above: Performed By: #### 8 9579-7, 90535-4, 5643-2, 95720-3, LIVR, 3040-3, CBCA, BMP #### [facility] ([id number]) [address] [place] [address] 94671 Eosinophils (Bld) [#/Vol] 0.1 10*3/uL Normal 0.0-0.4 [facility] Comment on above: Performed By: #### 8 9579-7, 51034-7, 5643-2, 04445-6, LIVR, 3040-3, CBCA, BMP #### [facility] ([id number]) [address] [place] [address] 82379 Eosinophils/100 WBC (Bld) 1.2 % Normal [facility] Comment on above: Performed By: #### 8 9579-7, 38915-7, 5643-2, 54902-8, LIVR, 3040-3, CBCA, BMP #### [facility] ([id number]) [address] [place] [address] 93195 Erythrocyte distribution width (RBC) [Ratio] 12.9 % Normal 11.5-15.0 [facility] Comment on above: Performed By: #### 8 9579-7, 70398-2, 5643-2, 38905-0, LIVR, 3040-3, CBCA, BMP #### [facility] ([id number]) [address] [place] [address] 80484 Hematocrit (Bld) [Volume fraction] 42.2 % Normal 35-47 [facility] Comment on above: Performed By: #### 8 9579-7, 95875-7, 5643-2, 60681-3, LIVR, 3040-3, CBCA, BMP #### [facility] ([id number]) [address] [place] [address] 18079 Hemoglobin (Bld) [Mass/Vol] 14.5 g/dL Normal 11.7-15.5 [facility] Comment on above: Performed By: #### 8 9579-7, 64937-8, 5643-2, 98381-7, LIVR, 3040-3, CBCA, BMP #### [facility] ([id number]) [address] [place] [address] 23652 Lymphocytes (Bld) [#/Vol] 2.8 10*3/uL Normal 1.0-3.5 [facility] Comment on above: Performed By: #### 8 9579-7, 03446-6, 5643-2, 84187-3, LIVR, 3040-3, CBCA, BMP #### [facility] ([id number]) [address] [place] [address] 62070 Lymphocytes/100 WBC (Bld) 26.2 % Normal [facility] Comment on above: Performed By: #### 8 9579-7, 97171-0, 5643-2, 60209-5, LIVR, 3040-3, CBCA, BMP #### [facility] ([id number]) [address] [place] [address] 36609 MCH (RBC) [Entitic mass] 33.8 pg Normal 27-34 [facility] Comment on above: Performed By: #### 8 9579-7, 79321-2, 5643-2, 92294-0, LIVR, 3040-3, CBCA, BMP #### [facility] ([id number]) [address] [place] [address] 07968 MCHC (RBC) [Mass/Vol] 34.3 g/dL Normal 32-36 [facility] Comment on above: Performed By: #### 8 9579-7, 09441-3, 5643-2, 86835-0, LIVR, 3040-3, CBCA, BMP #### [facility] ([id number]) [address] [place] [address] 00915 MCV (RBC) [Entitic vol] 98 fL Normal 80-100 [facility] Comment on above: Performed By: #### 8 9579-7, 81588-8, 5643-2, 81887-4, LIVR, 3040-3, CBCA, BMP #### [facility] ([id number]) [address] [place] [address] 20900 Monocytes (Bld) [#/Vol] 0.9 10*3/uL Normal 0-0.9 [facility] Comment on above: Performed By: #### 8 9579-7, 78317-5, 5643-2, 95547-5, LIVR, 3040-3, CBCA, BMP #### [facility] ([id number]) [address] [place] [address] 60495 Monocytes/100 WBC (Bld) 8.2 % Normal [facility] Comment on above: Performed By: #### 8 9579-7, 71410-4, 5643-2, 85680-5, LIVR, 3040-3, CBCA, BMP #### [facility] ([id number]) [address] [place] [address] 76290 Neutrophils/100 WBC (Bld) 63.6 % Normal [facility] Comment on above: Performed By: #### 8 9579-7, 72453-9, 5643-2, 04977-4, LIVR, 3040-3, CBCA, BMP #### [facility] ([id number]) [address] [place] [address] 74598 Platelet mean volume (Bld) [Entitic vol] 8.2 fL Normal 7-12 [facility] Comment on above: Performed By: #### 8 9579-7, 72089-5, 5643-2, 78680-4, LIVR, 3040-3, CBCA, BMP #### [facility] ([id number]) [address] [place] [address] 55691 Platelets (Bld) [#/Vol] 259 10*3/uL Normal 150-450 [facility] Comment on above: Performed By: #### 8 9579-7, 44178-9, 5643-2, 17259-7, LIVR, 3040-3, CBCA, BMP #### [facility] ([id number]) [address] [place] [address] 46693 RBC COUNT 4.29 X10E12/L Normal 3.80-5.20 [facility] Comment on above: Performed By: #### 8 9579-7, 31679-6, 5643-2, 56072-7, LIVR, 3040-3, CBCA, BMP #### [facility] ([id number]) [address] [place] [address] 05859 WBC (Bld) [#/Vol] 10.7 10*3/uL Normal 4.0-11.0 [facility] Comment on above: Performed By: #### 8 9579-7, 30819-5, 5643-2, 00508-5, LIVR, 3040-3, CBCA, BMP #### [facility] ([id number]) [address] [place] [address] 28059 COMPREHENSIVE METABOLIC PANE [facility] 01-14-2024 Albumin [Mass/Vol] 4.2 g/dL Normal 3.2-5.3 [facility] Comment on above: Performed By: #### 8 9579-7, 27636-3, 5643-2, 14099-2, LIVR, 3040-3, CBCA, BMP #### [facility] ([id number]) [address] [place] [address] 44039 ALP [Catalytic activity/Vol] 136 U/L High 39-130 [facility] Comment on above: Performed By: #### 8 9579-7, 49194-8, 5643-2, 83951-0, LIVR, 3040-3, CBCA, BMP #### [facility] ([id number]) [address] [place] [address] 93588 ALT [Catalytic activity/Vol] 18 U/L Normal 0-31 [facility] Comment on above: Performed By: #### 8 9579-7, 77203-2, 5643-2, 47475-3, LIVR, 3040-3, CBCA, BMP #### [facility] ([id number]) [address] [place] [address] 60921 Anion gap [Moles/Vol] 10 mmol/L Normal 5-15 [facility] Comment on above: Performed By: #### 8 9579-7, 95814-4, 5643-2, 17089-7, LIVR, 3040-3, CBCA, BMP #### [facility] ([id number]) [address] [place] [address] 69232 AST [Catalytic activity/Vol] 21 U/L Normal 0-41 [facility] Comment on above: Performed By: #### 8 9579-7, 35264-0, 5643-2, 09414-3, LIVR, 3040-3, CBCA, BMP #### [facility] ([id number]) [address] [place] [address] 58676 Bilirubin [Mass/Vol] 0.5 mg/dL Normal 0.3-1.2 [facility] Comment on above: Performed By: #### 8 9579-7, 92277-2, 5643-2, 31791-3, LIVR, 3040-3, CBCA, BMP #### [facility] ([id number]) [address] [place] [address] 91622 Calcium [Mass/Vol] 9.6 mg/dL Normal 8.5-10.5 [facility] Comment on above: Performed By: #### 8 9579-7, 33903-4, 5643-2, 12227-1, LIVR, 3040-3, CBCA, BMP #### [facility] ([id number]) [address] [place] [address] 32453 Chloride [Moles/Vol] 105 mmol/L Normal 98-109 [facility] Comment on above: Performed By: #### 8 9579-7, 55113-8, 5643-2, 51490-5, LIVR, 3040-3, CBCA, BMP #### [facility] ([id number]) [address] [place] [address] 04934 CO2 [Moles/Vol] 22 mmol/L Normal 22-32 [facility] Comment on above: Performed By: #### 8 9579-7, 37078-1, 5643-2, 36204-9, LIVR, 3040-3, CBCA, BMP #### [facility] ([id number]) [address] [place] [address] 25297 Creatinine [Mass/Vol] 0.74 mg/dL Normal 0.40-1.00 [facility] Comment on above: Result Comment: METH OD TRACEABLE TO IDMS STANDARD Performed By: #### 8 9579-7, 19024-6, 5643-2, 94990-9, LIVR, 3040-3, CBCA, BMP #### [facility] ([id number]) [address] [place] [address] 99551 eGFR (CKD-EPI) NON-RACE DEPENDENT >90 Normal >59 [facility] Comment on above: Result Comment: Reported eGFR is based on the CKD-EPI 2020 equation that does not use a race coefficient. Performed By: #### 8 9579-7, 69402-1, 5643-2, 16665-9, LIVR, 3040-3, CBCA, BMP #### [facility] ([id number]) [address] [place] [address] 00646 Glucose [Mass/Vol] 93 mg/dL Normal 65-99 [facility] Comment on above: Performed By: #### 8 9579-7, 80895-5, 5643-2, 87183-1, LIVR, 3040-3, CBCA, BMP #### [facility] ([id number]) [address] [place] [address] 51235 Potassium [Moles/Vol] 3.6 mmol/L Normal 3.5-5.0 [facility] Comment on above: Performed By: #### 8 9579-7, 04601-4, 5643-2, 30950-1, LIVR, 3040-3, CBCA, BMP #### [facility] ([id number]) [address] [place] [address] 49824 Protein [Mass/Vol] 7.3 g/dL Normal 6.0-8.0 [facility] Comment on above: Performed By: #### 8 9579-7, 03233-3, 5643-2, 91495-9, LIVR, 3040-3, CBCA, BMP #### [facility] ([id number]) [address] [place] [address] 66248 Sodium [Moles/Vol] 137 mmol/L Normal 134-146 [facility] Comment on above: Performed By: #### 8 9579-7, 53601-0, 5643-2, 82075-6, LIVR, 3040-3, CBCA, BMP #### [facility] ([id number]) [address] [place] [address] 01303 Urea nitrogen [Mass/Vol] 7 mg/dL Normal 5-23 [facility] Comment on above: Performed By: #### 8 9579-7, 94067-9, 5643-2, 14624-7, LIVR, 3040-3, CBCA, BMP #### [facility] ([id number]) [address] [place] [address] CT ABDOMEN AND PELVIS W CONT on [...] Rodgers MD on 01/14/2024 5:01 PM Normal [facility] LIPASEon 01-14-2024 Lipase [Catalytic activity/Vol] 72 U/L High 17-40 [facility] Comment on above: Performed By: #### 8 9579-7, 01263-6, 5643-2, 68604-5, LIVR, 3040-3, CBCA, BMP #### [facility] ([id number]) [address] [place] [address] MAGNESIUMon 01-14-2024 Magnesium [Mass/Vol] 2.2 mg/dL Normal 1.8-2.6 [facility] Comment on above: Performed By: #### 8 9579-7, 30744-6, 5643-2, 81424-4, LIVR, 3040-3, CBCA, BMP #### [facility] ([id number]) [address] [place] [address] 11638 URN MACROSCOPIC NURon 2023 BILIRUBIN JERE Negative Normal NEG [facility] Comment on above: Performed By: #### 8 9579-7, 75605-0, 5643-2, 92970-1, LIVR, 3040-3, CBCA, BMP #### [facility] ([id number]) [address] [place] [address] 19966 BLOOD/HGB JERE Negative Normal NEG [facility] Comment on above: Performed By: #### 8 9579-7, 33469-0, 5643-2, 05740-0, LIVR, 3040-3, CBCA, BMP #### [facility] ([id number]) [address] [place] [address] 04967 GLUCOSE JERE Negative Normal NEG [facility] Comment on above: Performed By: #### 8 9579-7, 99461-6, 5643-2, 03611-1, LIVR, 3040-3, CBCA, BMP #### [facility] ([id number]) [address] [place] [address] [place] [address] KETONES JERE Negative Normal NEG [facility] Comment on above: Performed By: #### 8 9579-7, 84117-4, 5643-2, 85067-5, LIVR, 3040-3, CBCA, BMP #### [facility] ([id number]) [address] [place] [address] 58064 LEUKOCYTE ESTERASE JERE Negative Normal NEG [facility] Comment on above: Performed By: #### 8 9579-7, 92664-5, 5643-2, 47067-3, LIVR, 3040-3, CBCA, BMP #### [facility] ([id number]) [address] [place] [address] 21524 NITRITE JERE Negative Normal NEG [facility] Comment on above: Performed By: #### 8 9579-7, 61476-2, 5643-2, 56820-2, LIVR, 3040-3, CBCA, BMP #### [facility] ([id number]) [address] [place] [address] 72440 PH JERE 5.5 Normal 5.0-8.5 [facility] Comment on above: Performed By: #### 8 9579-7, 53289-1, 5643-2, 78156-8, LIVR, 3040-3, CBCA, BMP #### [facility] ([id number]) [address] [place] [address] 12606 PROTEIN JERE Negative Normal NEG [facility] Comment on above: Performed By: #### 8 9579-7, 58484-0, 5643-2, 63017-2, LIVR, 3040-3, CBCA, BMP #### [facility] ([id number]) [address] [place] [address] 79190 SPECIFIC GRAVITY JERE >=1.030 Normal 1.003-1 .03 5 [facility] Comment on above: Performed By: #### 8 9579-7, 72495-4, 5643-2, 01542-6, LIVR, 3040-3, CBCA, BMP #### [facility] ([id number]) [address] [place] [address] 15051 UROBILINOGEN JEER 0.2 eu/dL Normal <1.1 [facility] Comment on above: Performed By: #### 8 9579-7, 22002-6, 5643-2, 89759-1, LIVR, 3040-3, CBCA, BMP #### [facility] ([id number]) [address] [place] [address] 39946 CBC with Auto Differentialon 01-07-2024 Basophils (Bld) [#/Vol] 0.09 10*3/uL [facility] Basophils/100 WBC (Bld) 1 % 0 - 2 % [facility] Eosinophils (Bld) [#/Vol] 0.10 10*3/uL [facility] Eosinophils/100 WBC (Bld) 1 % 1 - 4 % [facility] Erythrocyte distribution width (RBC) [Ratio] 12.2 % 11.8 - 14.4 % [facility] Hematocrit (Bld) [Volume fraction] 46.3 % 36.3 - 47.1 % [facility] Hemoglobin (Bld) [Mass/Vol] 15.9 g/dL High 11.9 - 15.1 g/dL [facility] Immature granulocytes (Bld) [#/Vol] [facility] Immature granulocytes/100 WBC (Bld) 0 % 0 [facility] Interpretation and review of laboratory results Abnormal [facility] Lymphocytes/100 WBC (Bld) 28 % 24 - 43 % [facility] Lymphocytes/100 WBC (Bld) 2.73 % [facility] MCH (RBC) [Entitic mass] 33.8 pg High 25.2 - 33.5 pg [facility] MCHC (RBC) [Mass/Vol] 34.3 g/dL 28.4 - 34.8 g/dL [facility] MCV (RBC) [Entitic vol] 98.3 fL 82.6 - 102.9 fL [facility] Monocytes/100 WBC (Bld) 9 % 3 - 12 % [facility] Monocytes/100 WBC (Bld) 0.88 % [facility] Neutrophils/100 WBC (Bld) 61 % 36 - 65 % [facility] Nucleated RBC/100 WBC (Bld) [Ratio] 0.0 % 0.0 per 100 WBC [facility] Platelet mean volume (Bld) [Entitic vol] 9.7 fL 8.1 - 13.5 fL [facility] Platelets (Bld) [#/Vol] 277 10*3/uL [facility] RBC (Bld) [#/Vol] 4.71 10*6/uL 3.95 - 5.11 m/uL [facility] Segmented neutrophils/100 WBC (Bld) 6.06 % [facility] WBC other (Bld) [#/Vol] 9.9 [facility] CBC with Diffon 01-07-2024 Abs. Basophil 0.09 k/uL Normal 0.00-0.20 [facility] Comment on above: Performed By: #### L IP, CDP, CP #### [facility] [address] [place] [address] Black Leather Trimmer: Ion Jasso MD Abs.Imm.Granulocyte <0.03 Normal 0.00-0.30 [facility] Comment on above: Performed By: #### L IP, CDP, CP #### [facility] [address] [place] [address] Black Leather Trimmer: Ion Jasso MD Abs.Neutrophil (Seg) 6.06 k/uL Normal 1.50-8.10 [facility] Comment on above: Performed By: #### L IP, CDP, CP #### [address] [place], [place] [address] Black Leather Trimmer: Ion Jasso MD Basophils/100 WBC (Bld) 1 % Normal 0-2 [facility] Comment on above: Performed By: #### L IP, CDP, CP #### [address] [place] [address] Black Leather Trimmer: Ion Jasso MD Eosinophils (Bld) [#/Vol] 0.10 10*3/uL Normal 0.00-0.44 [facility] Comment on above: Performed By: #### L IP, CDP, CP #### [facility] [address] [place], [place] [address] Black Leather Trimmer: Ion Jasso MD Eosinophils/100 WBC (Bld) 1 % Normal 1-4 [facility] Comment on above: Performed By: #### L IP, CDP, CP #### [facility] [address] [place], [place] [address] Black Leather Trimmer: Ion Jasso MD Erythrocyte distribution width (RBC) [Ratio] 12.2 % Normal 11.8-14.4 [facility] Comment on above: Performed By: #### L IP, CDP, CP #### [address] [place], [facility] Black Leather Trimmer: Ion Jsaso MD Hematocrit (Bld) [Volume fraction] 46.3 % Normal 36.3-47.1 [facility] Comment on above: Performed By: #### L IP, CDP, CP #### [address] [place], [facility] Black Leather Trimmer: Ion Jasso MD Hemoglobin (Bld) [Mass/Vol] 15.9 g/dL High 11.9-15.1 [facility] Comment on above: Performed By: #### L IP, CDP, CP #### [address] [place], [facility] Black Leather Trimmer: Ion Jasso MD Immature granulocytes/100 WBC (Bld) 0 % Normal 0 [facility] Comment on above: Performed By: #### L IP, CDP, CP #### [address] [place], [facility] Black Leather Trimmer: Ion Jasso MD Lymphocytes (Bld) [#/Vol] 2.73 10*3/uL Normal 1.10-3.70 [facility] Comment on above: Performed By: #### L IP, CDP, CP #### [address] [place], [facility] Black Leather Trimmer: Ion Jasso MD Lymphocytes/100 WBC (Bld) 28 % Normal 24-43 [facility] Comment on above: Performed By: #### L IP, CDP, CP #### [address] [place], [facility] Black Leather Trimmer: Ion Jasso MD MCH (RBC) [Entitic mass] 33.8 pg High 25.2-33.5 [facility] Comment on above: Performed By: #### L IP, CDP, CP #### [address] [place], [facility] Black Leather Trimmer: Ion Jasso MD MCHC (RBC) [Mass/Vol] 34.3 g/dL Normal 28.4-34.8 [facility] Comment on above: Performed By: #### L IP, CDP, CP #### [address] [place], [place] [address] Black Leather Trimmer: Ion Jasso MD MCV (RBC) [Entitic vol] 98.3 fL Normal 82.6-102.9 [facility] Comment on above: Performed By: #### L IP, CDP, CP #### [address] [place], [facility] Black Leather Trimmer: Ion Jasso MD Monocytes (Bld) [#/Vol] 0.88 10*3/uL Normal 0.10-1.20 [facility] Comment on above: Performed By: #### L IP, CDP, CP #### [address] [place], [facility] Black Leather Trimmer: Ion Jasso MD Monocytes/100 WBC (Bld) 9 % Normal 3-12 [facility] Comment on above: Performed By: #### L IP, CDP, CP #### [address] [place], [facility] [employer] Le[employer] Trimmer: Ion Jasso MD Neutrophil (Seg) 61 % Normal 36-65 [facility] Comment on above: Performed By: #### L IP, CDP, CP #### [address] [place], [facility] [employer] Le[employer] Trimmer: Ion Jasso MD NRBC Automated 0.0 per 100 WBC Normal 0.0 [facility] Comment on above: Performed By: #### L IP, CDP, CP #### [address] [place], [place] [id number] [employer]: Ion Jasso MD Platelet mean volume (Bld) [Entitic vol] 9.7 fL Normal 8.1-13.5 [facility] Comment on above: Performed By: #### L IP, CDP, CP #### [address] [place], [place] [id number] [employer]: Ion Jasso MD Platelets (Bld) [#/Vol] 277 10*3/uL Normal 138-453 [facility] Comment on above: Performed By: #### L IP, CDP, CP #### [address] [place], [place] [id number] [employer]: Ion Jasso MD RBC (Bld) [#/Vol] 4.71 10*6/uL Normal 3.95-5.11 [facility] Comment on above: Performed By: #### L IP, CDP, CP #### [address] [place], [place] [id number] [employer]: Ion Jasso MD WBC (Bld) [#/Vol] 9.9 10*3/uL Normal 3.5-11.3 [facility] Comment on above: Performed By: #### L IP, CDP, CP #### [address] [place], [place] [id number] [employer]: Ion Jasso MD Comp Metabolic Profon 2023 Albumin [Mass/Vol] 4.3 g/dL Normal 3.5-5.2 [facility] Comment on above: Performed By: #### L IP, CDP, CP #### [address] [place] [address] [employer]: Ion Jasso MD Albumin/Glob Ratio 1.6 Normal 1.0-2.5 [facility] Comment on above: Performed By: #### L IP, CDP, CP #### [facility] [address] [place] [address] Black Leather Trimmer: Ion Jasso MD Alkaline Phos 145 U/L High 35-104 [facility] Comment on above: Performed By: #### L IP, CDP, CP #### [facility] [address] [place] [address] Black Leather Trimmer: Ion Jasso MD ALT [Catalytic activity/Vol] 11 U/L Normal 10-35 [facility] Comment on above: Performed By: #### L IP, CDP, CP #### [facility] [address] [place] [address] Black Leather Trimmer: Ion Jasso MD Anion gap [Moles/Vol] 12 mmol/L Normal 9-16 [facility] Comment on above: Performed By: #### L IP, CDP, CP #### [facility] [address] [place] [address] Black Leather Trimmer: Ion Jasso MD AST [Catalytic activity/Vol] 25 U/L Normal 10-35 [facility] Comment on above: Result Comment: Spec imen hemolysis has exceeded the interference as defined by Joycelyn. Value may be falsely increased. Suggest recollection if clinically indicated. Performed By: #### L IP, CDP, CP #### [facility] [address] [place] [address] Black Leather Trimmer: Ion Jasso MD Bilirubin [Mass/Vol] mg/dL Normal 0.00-1.20 [facility] Comment on above: Performed By: #### L IP, CDP, CP #### [facility] [address] [place] [address] Black Leather Trimmer: Ion Jasso MD BUN/CRE Ratio 9 Normal 9-20 [facility] Comment on above: Performed By: #### L IP, CDP, CP #### [facility] [address] [place], [place] [id number] Black Leather Trimmer: Ion Jasso MD Calcium [Mass/Vol] 9.8 mg/dL Normal 8.6-10.4 [facility] Comment on above: Performed By: #### L IP, CDP, CP #### [facility] [address] [place], [place] [id number] Black Leather Trimmer: Ion Jasso MD Chloride [Moles/Vol] 103 mmol/L Normal 98-107 [facility] Comment on above: Performed By: #### L IP, CDP, CP #### [facility] [address] [place], [place] [address]83 Black Leather Trimmer: Ion Jasso MD CO2 [Moles/Vol] 22 mmol/L Normal 20-31 [facility] Comment on above: Performed By: #### L IP CDP, CP #### [facility] [address] [place] [address] Dr[place], [place] [id number] Black Leather Trimmer: Ion Jasso MD Creatinine [Mass/Vol] 0.8 mg/dL Normal 0.50-0.90 [facility] Comment on above: Performed By: #### L IP CDP, CP #### [facility] [address] [place] [address] Black Leather Trimmer: Ion Jasso MD GFR/1.73 sq M.predicted among non-blacks MDRD (S/P/Bld) [Vol rate/Area] mL/min/{1.73_m2} Normal >60 [facility] Comment on above: Result Comment: These results [...] By: #### L WALTER ROONEY, CP #### [facility] [address] [place] [address] [place] [address] Black Leather Trimmer: Ion Jasso MD Glucose [Mass/Vol] 96 mg/dL Normal 74-99 [facility] Comment on above: Performed By: #### L IP, CDP, CP #### [facility] [address] [place], [place] 35[address]83 Black Leather Trimmer: Ion Jasso MD Potassium [Moles/Vol] 4.6 mmol/L Normal 3.7-5.3 [facility] Comment on above: Result Comment: Spec imen hemolysis has exceeded the interference as defined by Joycelyn. Value may be falsely increased. Suggest recollection if clinically indicated. Performed By: #### L TORIBIO CDP, CP #### [address] [place], [place] [id number] Black Leather Trimmer: Ion Jasso MD Protein [Mass/Vol] 7.0 g/dL Normal 6.6-8.7 [facility] Comment on above: Performed By: #### L WALTER ROONEY, CP #### [address] [place] [address] Black Leather Trimmer: Ion Jasso MD Sodium [Moles/Vol] 137 mmol/L Normal 136-145 [facility] Comment on above: Performed By: #### L IP CDP, CP #### [facility] [address] [place] [address] Dr[place], [place] [phone] Black Leather Trimmer: Ion Jasso MD Urea nitrogen [Mass/Vol] 7 mg/dL Normal 6-20 [facility] Comment on above: Performed By: #### L IP, CDP, CP #### [facility] [address] [place] [address] Black Leather Trimmer: Ion Jasso MD Comprehensive Metabolic Pane [facility] 01-07-2024 Albumin [Mass/Vol] 4.3 g/dL 3.5 - 5.2 g/dL [facility] Albumin/Globulin [Mass ratio] 1.6 {ratio} 1.0 - 2.5 [facility] ALP [Catalytic activity/Vol] 145 U/L High 35 - 104 U/L [facility] ALT [Catalytic activity/Vol] 11 U/L 10 - 35 U/L [facility] Anion gap [Moles/Vol] 12 mmol/L 9 - 16 mmol/L [facility] AST [Catalytic activity/Vol] 25 U/L 10 - 35 U/L [facility] Comment on above: Specimen hemolysis h as exceeded the interference as defined by Joycelyn. Value may be falsely increased. Suggest recollection if clinically indicated. Bilirubin [Mass/Vol] mg/dL 0.00 - 1.20 mg/dL [facility] Calcium [Mass/Vol] 9.8 mg/dL 8.6 - 10. 4 mg/dL [facility] Chloride [Moles/Vol] 103 mmol/L 98 - 10 7 mmol/L [facility] CO2 [Moles/Vol] 22 mmol/L 20 - 31 mmol/L [facility] Creatinine [Mass/Vol] 0.8 mg/dL 0.50 - 0.90 mg/dL [facility] Est, Glomarina Reyest Rate - PINF [facility] Comment on above: These results are not [...] 96 mg/dL 74 - 99 mg/dL [facility] Potassium [Moles/Vol] 4.6 mmol/L 3.7 - 5.3 mmol/L [facility] Comment on above: Specimen hemolysis h as exceeded the interference as defined by Joycelyn. Value may be falsely increased. Suggest recollection if clinically indicated. Protein [Mass/Vol] 7.0 g/dL 6.6 - 8.7 g/dL [facility] Sodium [Moles/Vol] 137 mmol/L 136 - 145 mmol/L [facility] Urea nitrogen [Mass/Vol] 7 mg/dL 6 - 20 mg/dL [facility] Urea nitrogen/Creatinine [Mass ratio] 9 mg/mg 9 - 20 [facility] Lactic Acidon 01-07-2024 Lactate (BldV) [Moles/Vol] 1.3 mmol/L 0.5 - 2.2 mmol/L [facility] Lactate [Moles/Vol] 1.3 mmol/L Normal 0.5-2.2 [facility] Comment on above: Performed By: #### B MP, LIVP, LIP #### [facility] [address] [place] [address] Black Leather Trimmer: Ion Jasso MD Lipaseon 01-07-2024 Lipase [Catalytic activity/Vol] 144 U/L High 13 - 60 U/L [facility] Lipase [Catalytic activity/Vol] 144 U/L High 13-60 [facility] Comment on above: Performed By: #### L WALTER ROONEY, CP #### [facility] [address] [place] [address] Black Leather Trimmer: Ion Jasso MD No Panel Informationon 01-06 Interpretation and review of laboratory results Abnormal [facility] Urinalysis w/ Microon 2023 Bilirubin, SemiQt,Ur Negative Normal NEG [facility] Comment on above: Performed By: #### L WALTER ROONEY, CP #### [facility] [address] [place] [address] Black Leather Trimmer: Ion Jasso MD Blood, Urine Negative Normal NEG [facility] Comment on above: Performed By: #### L WALTER ROONEY, CP #### [facility] [address] [place] [address] Black Leather Trimmer: Ion Jasso MD Clarity (U) Clear Normal CLEAR [facility] Comment on above: Performed By: #### L IP, CDP, CP #### [facility] [address] [place], [place] [phone] Black Leather Trimmer: Ion Jasso MD Color (U) Yellow Normal YEL [facility] Comment on above: Performed By: #### L IP, CDP, CP #### [facility] [address] [place], [place] 2170283 Black Leather Trimmer: Ion Jasso MD Epithelial cells LM Ql (Urine sed) 0 TO 2 Normal 0-25 [facility] Comment on above: Performed By: #### L IP, CDP, CP #### [facility] [address] [place], [place] 4023083 Black Leather Trimmer: Ion Jasso MD Glucose Ql (U) Negative Normal NEG [facility] Comment on above: Performed By: #### L IP, CDP, CP #### [facility] [address] [place] [address] Dr. [place], [place] 8133083 Black Leather Trimmer: Ion Jasso MD Ketones Ql (U) Negative Normal NEG [facility] Comment on above: Performed By: #### L IP, CDP, CP #### [facility] [address] [place], [place] 1623483 Black Leather Trimmer: Ion Jasso MD Leukocyte esterase Test strip Ql (U) Negative Normal NEG [facility] Comment on above: Performed By: #### L IP, CDP, CP #### [facility] [address] [place], [place] 0398583 Black Leather Trimmer: Ion Jasso MD Nitrite,Ur Negative Normal NEG [facility] Comment on above: Performed By: #### L IP, CDP, CP #### [facility] [address] [place], [place] 4340683 Black Leather Trimmer: Ion Jasso MD PH,Ur 6.0 Normal 5.0-9.0 [facility] Comment on above: Performed By: #### L IP, CDP, CP #### [facility] [address] [place] [address] Dr[place], [place] [phone] Black Leather Trimmer: Ion Jasso MD Protein Ql (U) Negative Normal NEG [facility] Comment on above: Performed By: #### L IP, CDP, CP #### [facility] [address] [place] [address] Dr[place], [place] 9008883 Black Leather Trimmer: Ion Jasso MD Spec. [place],Ur 1.010 Normal 1.010-1.02 0 [facility] Comment on above: Performed By: #### L IP, CDP, CP #### [address] [place], [place] 6069683 Black Leather Trimmer: Ion Jasso MD Urine RBC's None Normal 0-2 [facility] Comment on above: Performed By: #### L IP, CDP, CP #### [address] [place], [place] 958[address]83 Black Leather Trimmer: Ion Jasso MD Urine WBC's 0 TO 2 Normal 0-5 [facility] Comment on above: Performed By: #### L IP, CDP, CP #### [address] [place] [address] Black Leather Trimmer: Ion Jasso MD Urobilinogen,Ur Normal Normal 0.0-1.0 [facility] Comment on above: Performed By: #### L IP, CDP, CP #### [address] [place], [place] 3173383 Black Leather Trimmer: Ion Jasso MD Urinalysis with Microscopico n 01-07-2024 Bilirubin Ql (U) Negative NEGATIVE [facility] Clarity (U) Clear Clear [facility] Color (U) Yellow Yellow [facility] Epithelial cells LM.HPF (Urine sed) [#/Area] 0 TO 2 [facility] Glucose Test strip (U) [Mass/Vol] Negative NEGATIVE mg/dL [facility] Hemoglobin Auto test strip Ql (U) Negative NEGATIVE [facility] Ketones (U) [Mass/Vol] Negative NEGAT MATTHIAS mg/dL [facility] Leukocyte esterase Test strip Ql (U) Negative NEGATIVE [facility] Nitrite Ql (U) Negative NEGATIVE [place] [facility] pH (U) 6.0 [pH] 5.0 - 9.0 [facility] Protein (U) [Mass/Vol] Negative NEGAT MATTHIAS mg/dL [facility] RBC LM.HPF (Urine sed) [#/Area] None [facility] Specific gravity (U) [Rel density] 1.010 1.010 - 1.020 [facility] Urobilinogen Qn (U) Normal 0.0 - 1. 0 EU/dL [facility] WBC LM.HPF (Urine sed) [#/Area] 0 TO 2 [facility] BASIC METABOLIC PANLon 12-28 Anion gap [Moles/Vol] 8 mmol/L Normal 5-15 [facility] Comment on above: Performed By: #### 8 9579-7, 45419-6, 5643-2, 18438-8, LIVR, 3040-3, CBCA, BMP #### [facility] ([id number]) [address] [place] [address] 93854 Calcium [Mass/Vol] 9.7 mg/dL Normal 8.5-10.5 [facility] Comment on above: Performed By: #### 8 9579-7, 73330-3, 5643-2, 56632-1, LIVR, 3040-3, CBCA, BMP #### [facility] ([id number]) [address] [place] [address] 02203 Chloride [Moles/Vol] 106 mmol/L Normal 98-109 [facility] Comment on above: Performed By: #### 8 9579-7, 30688-7, 5643-2, 39845-0, LIVR, 3040-3, CBCA, BMP #### [facility] ([id number]) [address] [place] [address] 26842 CO2 [Moles/Vol] 24 mmol/L Normal 22-32 [facility] Comment on above: Performed By: #### 8 9579-7, 06818-6, 5643-2, 63234-3, LIVR, 3040-3, CBCA, BMP #### [facility] ([id number]) [address] [place] [address] 75873 Creatinine [Mass/Vol] 0.88 mg/dL Normal 0.40-1.00 [facility] Comment on above: Result Comment: METH OD TRACEABLE TO IDMS STANDARD Performed By: #### 8 9579-7, 92372-2, 5643-2, 13808-7, LIVR, 3040-3, CBCA, BMP #### [facility] ([id number]) [address] [place] [address] 01463 GFR/1.73 sq M.predicted among non-blacks MDRD (S/P/Bld) [Vol rate/Area] 78 mL/min/{1.73_m2} Normal >59 [facility] Comment on above: Result Comment: Reported eGFR is based on the CKD-EPI 2020 equation that does not use a race coefficient. Performed By: #### 8 9579-7, 99404-7, 5643-2, 43424-3, LIVR, 3040-3, CBCA, BMP #### [facility] ([id number]) [address] [place] [address] 25891 Glucose [Mass/Vol] 82 mg/dL Normal 65-99 [facility] Comment on above: Performed By: #### 8 9579-7, 27783-6, 5643-2, 21850-2, LIVR, 3040-3, CBCA, BMP #### [facility] ([id number]) [address] [place] [address] 42363 Potassium [Moles/Vol] 4.2 mmol/L Normal 3.5-5.0 [facility] Comment on above: Result Comment: SPEC IMEN HEMOLYZED, RESULTS INCREASED Performed By: #### 8 9579-7, 68524-5, 5643-2, 77541-1, LIVR, 3040-3, CBCA, BMP #### [facility] ([id number]) [address] [place] [address] 71242 Sodium [Moles/Vol] 138 mmol/L Normal 134-146 [facility] Comment on above: Performed By: #### 8 9579-7, 89957-0, 5643-2, 76166-4, LIVR, 3040-3, CBCA, BMP #### [facility] ([id number]) [address] [place] [address] 16761 Urea nitrogen [Mass/Vol] 12 mg/dL Normal 5-23 [facility] Comment on above: Performed By: #### 8 9579-7, 04158-7, 5643-2, 52641-5, LIVR, 3040-3, CBCA, BMP #### [facility] ([id number]) [address] [place] [address] 55311 CBC AND AUTO DIFFon 12-29-19 24 ABSOLUTE BASOPHIL 0.1 X10E9/L Normal 0.0-0.2 [facility] Comment on above: Performed By: #### 8 9579-7, 65199-5, 5643-2, 88681-4, LIVR, 3040-3, CBCA, BMP #### [facility] ([id number]) [address] [place] [address] 41453 ABSOLUTE NEUTROPHIL 3.9 X10E9/L Normal 1.5-6.6 [facility] Comment on above: Performed By: #### 8 9579-7, 22309-6, 5643-2, 87230-2, LIVR, 3040-3, CBCA, BMP #### [facility] ([id number]) [address] [place] [address] 37560 Basophils/100 WBC (Bld) 1.3 % Normal [facility] Comment on above: Performed By: #### 8 9579-7, 86817-0, 5643-2, 70951-9, LIVR, 3040-3, CBCA, BMP #### [facility] ([id number]) [address] [place] [address] 09732 Eosinophils (Bld) [#/Vol] 0.2 10*3/uL Normal 0.0-0.4 [facility] Comment on above: Performed By: #### 8 9579-7, 75002-8, 5643-2, 08322-7, LIVR, 3040-3, CBCA, BMP #### [facility] ([id number]) [address] [place] [address] 31057 Eosinophils/100 WBC (Bld) 2.3 % Normal [facility] Comment on above: Performed By: #### 8 9579-7, 54692-8, 5643-2, 51663-0, LIVR, 3040-3, CBCA, BMP #### [facility] ([id number]) [address] [place] [address] 24780 Erythrocyte distribution width (RBC) [Ratio] 13.2 % Normal 11.5-15.0 [facility] Comment on above: Performed By: #### 8 9579-7, 26502-6, 5643-2, 51661-4, LIVR, 3040-3, CBCA, BMP #### [facility] ([id number]) [address] [place] [address] 44225 Hematocrit (Bld) [Volume fraction] 41.8 % Normal 35-47 [facility] Comment on above: Performed By: #### 8 9579-7, 42501-2, 5643-2, 19241-0, LIVR, 3040-3, CBCA, BMP #### [facility] ([id number]) [address] [place] [address] 17158 Hemoglobin (Bld) [Mass/Vol] 14.3 g/dL Normal 11.7-15.5 [facility] Comment on above: Performed By: #### 8 9579-7, 25374-1, 5643-2, 17471-1, LIVR, 3040-3, CBCA, BMP #### [facility] ([id number]) [address] [place] [address] 88963 Lymphocytes (Bld) [#/Vol] 2.5 10*3/uL Normal 1.0-3.5 [facility] Comment on above: Performed By: #### 8 9579-7, 99440-6, 5643-2, 93426-7, LIVR, 3040-3, CBCA, BMP #### [facility] ([id number]) [address] [place] [address] 66537 Lymphocytes/100 WBC (Bld) 33.1 % Normal [facility] Comment on above: Performed By: #### 8 9579-7, 74373-7, 5643-2, 57169-7, LIVR, 3040-3, CBCA, BMP #### [facility] ([id number]) [address] [place] [address] 34417 MCH (RBC) [Entitic mass] 34.0 pg Normal 27-34 [facility] Comment on above: Performed By: #### 8 9579-7, 47402-8, 5643-2, 24340-5, LIVR, 3040-3, CBCA, BMP #### [facility] ([id number]) [address] [place] [address] 13406 MCHC (RBC) [Mass/Vol] 34.1 g/dL Normal 32-36 [facility] Comment on above: Performed By: #### 8 9579-7, 39176-0, 5643-2, 31109-6, LIVR, 3040-3, CBCA, BMP #### [facility] ([id number]) [address] [place] [address] 39148 MCV (RBC) [Entitic vol] 100 fL Normal 80-100 [facility] Comment on above: Performed By: #### 8 9579-7, 49608-3, 5643-2, 07744-2, LIVR, 3040-3, CBCA, BMP #### [facility] ([id number]) [address] [place] [address] 54677 Monocytes (Bld) [#/Vol] 0.9 10*3/uL Normal 0-0.9 [facility] Comment on above: Performed By: #### 8 9579-7, 58871-6, 5643-2, 36652-7, LIVR, 3040-3, CBCA, BMP #### [facility] ([id number]) [address] [place] [address] 12218 Monocytes/100 WBC (Bld) 12.0 % Normal [facility] Comment on above: Performed By: #### 8 9579-7, 39324-6, 5643-2, 02481-4, LIVR, 3040-3, CBCA, BMP #### [facility] ([id number]) [address] [place] [address] 03170 Neutrophils/100 WBC (Bld) 51.3 % Normal [facility] Comment on above: Performed By: #### 8 9579-7, 11378-8, 5643-2, 08349-1, LIVR, 3040-3, CBCA, BMP #### [facility] ([id number]) [address] [place] [address] 82641 Platelet mean volume (Bld) [Entitic vol] 8.2 fL Normal 7-12 [facility] Comment on above: Performed By: #### 8 9579-7, 54218-8, 5643-2, 02997-3, LIVR, 3040-3, CBCA, BMP #### [facility] ([id number]) [address] [place] [address] 15199 Platelets (Bld) [#/Vol] 266 10*3/uL Normal 150-450 [facility] Comment on above: Performed By: #### 8 9579-7, 82101-6, 5643-2, 46084-5, LIVR, 3040-3, CBCA, BMP #### [facility] ([id number]) [address] [place] [address] 86548 RBC COUNT 4.19 X10E12/L Normal 3.80-5.20 [facility] Comment on above: Performed By: #### 8 9579-7, 02959-7, 5643-2, 98043-1, LIVR, 3040-3, CBCA, BMP #### [facility] ([id number]) [address] [place] [address] 80543 WBC (Bld) [#/Vol] 7.7 10*3/uL Normal 4.0-11.0 [facility] Comment on above: Performed By: #### 8 9579-7, 72045-4, 5643-2, 52584-1, LIVR, 3040-3, CBCA, BMP #### [facility] ([id number]) [address] [place] [address] ABDOMEN AND PELVIS WO CON Ton [...] Presley MD on 12/29/2023 6:27 AM Normal [facility] ETHANOLon 12-29-2023 Ethanol [Mass/Vol] mg/dL Normal 0.00-0.08 [facility] Comment on above: Result Comment: This report is intended for use in clinical monitoring or management of patients. Performed By: #### 8 9579-7, 28447-2, 5643-2, 74464-8, LIVR, 3040-3, CBCA, BMP #### [facility] ([id number]) [address] [place] [address] 93952 Fibrin D-dimer DDU (PPP) [Ma ss/Vol]on 12-29-2023 D DIMER <150 Normal <255 [facility] Comment on above: Result Comment: Results <255 ng/mL DDU: The presence of a VTE can safely be excluded with a negative D-Dimer result and Wells score. A negative result doesn't exclude the possibility of DIC. The test be repeated along with other diagnostic tests if the patient's symptoms persist or worsen. [email or web address] Performed By: #### 8 9579-7, 48682-3, 5643-2, 34989-7, LIVR, 3040-3, CBCA, BMP #### [facility] ([id number]) [address] [place] [address] [place] [address] LIPASEon 12-29-2023 Lipase [Catalytic activity/Vol] 55 U/L High 17-40 [facility] Comment on above: Performed By: #### 8 9579-7, 07961-1, 5643-2, 22195-3, LIVR, 3040-3, CBCA, BMP #### [facility] ([id number]) [address] [place] [address] 35922 LIVER PANELon 12-29-2023 Albumin [Mass/Vol] 3.9 g/dL Normal 3.2-5.3 [facility] Comment on above: Performed By: #### 8 9579-7, 71739-5, 5643-2, 32614-3, LIVR, 3040-3, CBCA, BMP #### [facility] ([id number]) [address] [place] [address] 29823 ALP [Catalytic activity/Vol] 111 U/L Normal 39-130 [facility] Comment on above: Performed By: #### 8 9579-7, 82742-3, 5643-2, 82986-5, LIVR, 3040-3, CBCA, BMP #### [facility] ([id number]) [address] [place] [address] 02598 ALT [Catalytic activity/Vol] 11 U/L Normal 0-31 [facility] Comment on above: Performed By: #### 8 9579-7, 55222-3, 5643-2, 25355-6, LIVR, 3040-3, CBCA, BMP #### [facility] ([id number]) [address] [place] [address] 51750 AST [Catalytic activity/Vol] 23 U/L Normal 0-41 [facility] Comment on above: Performed By: #### 8 9579-7, 24216-8, 5643-2, 73134-9, LIVR, 3040-3, CBCA, BMP #### [facility] ([id number]) [address] [place] [address] 21576 Bilirubin [Mass/Vol] 0.5 mg/dL Normal 0.3-1.2 [facility] Comment on above: Result Comment: RESU LTS QUESTIONABLE DUE TO HEMOLYSIS Performed By: #### 8 9579-7, 81001-1, 5643-2, 56788-1, LIVR, 3040-3, CBCA, BMP #### [facility] ([id number]) [address] [place] [address] 29849 Bilirubin.direct [Mass/Vol] 0.3 mg/dL Normal 0.0-0.4 [facility] Comment on above: Performed By: #### 8 9579-7, 31198-6, 5643-2, 37488-3, LIVR, 3040-3, CBCA, BMP #### [facility] ([id number]) [address] [place] [address] 82294 Protein [Mass/Vol] 6.9 g/dL Normal 6.0-8.0 [facility] Comment on above: Performed By: #### 8 9579-7, 49773-1, 5643-2, 82912-8, LIVR, 3040-3, CBCA, BMP #### [facility] ([id number]) [address] [place] [address] 70039 MAGNESIUMon 12-29-2023 Magnesium [Mass/Vol] 2.2 mg/dL Normal 1.8-2.6 [facility] Comment on above: Performed By: #### 8 9579-7, 45745-3, 5643-2, 73662-4, LIVR, 3040-3, CBCA, BMP #### [facility] ([id number]) [address] [place] [id number] Troponin I.cardiac High sens itivity method [Mass/Vol]on 12-29-2023 1 HOUR TROP I, HIGH SENSITIVITY 2 ng/L Normal <16 [facility] Comment on above: Performed By: #### 8 9579-7 #### [facility] ([id number]) [address] [place] [id number] TROPONIN I, HIGH SENSITIVITY 2 ng/L Normal <16 [facility] Comment on above: Performed By: #### 8 9579-7, 20782-1, 5643-2, 85566-2, LIVR, 3040-3, CBCA, BMP #### [facility] ([id number]) [address] [facility], [place] [address] CBC with Diffon 09-29-2023 Basophils (Bld) [#/Vol] 0.05 10*3/uL [facility] Basophils/100 WBC (Bld) 0 % 0 - 2 % [facility] Eosinophils (Bld) [#/Vol] 0.05 10*3/uL [facility] Eosinophils/100 WBC (Bld) 0 % Low 1 - 4 % [facility] Erythrocyte distribution width (RBC) [Ratio] 12.9 % 11.8 - 14.4 % [facility] Hematocrit (Bld) [Volume fraction] 40.3 % 36.3 - 47.1 % [facility] Hemoglobin (Bld) [Mass/Vol] 14.2 g/dL 11.9 - 15.1 g/dL [facility] Immature granulocytes (Bld) [#/Vol] [facility] Immature granulocytes/100 WBC (Bld) 0 % 0 [facility] Interpretation and review of laboratory results Abnormal [facility] Lymphocytes/100 WBC (Bld) 19 % Low 24 - 43 % [facility] Lymphocytes/100 WBC (Bld) 2.18 % [facility] MCH (RBC) [Entitic mass] 33.8 pg High 25.2 - 33.5 pg [facility] MCHC (RBC) [Mass/Vol] 35.2 g/dL High 28.4 - 34.8 g/dL [facility] MCV (RBC) [Entitic vol] 96.0 fL 82.6 - 102.9 fL [facility] Monocytes/100 WBC (Bld) 8 % 3 - 12 % [facility] Monocytes/100 WBC (Bld) 0.94 % [facility] WBC other (Bld) [#/Vol] 11.3 [facility] CMPon 09-29-2023 Albumin [Mass/Vol] 4.4 g/dL [...] Est, Glom Filt Rate 88 - [facility] Comment on above: These results are [...] [Mass ratio] 13 mg/mg 9 - 20 [facility] Lipaseon 09-29-2023 Lipase [Catalytic activity/Vol] 141 U/L High 13 - 60 U/L [facility] Microscopic Urinalysison Bacteria LM Ql (Urine sed) TRACE Abnormal None [facility] Epithelial cells LM.HPF (Urine sed) [#/Area] 2 TO 5 [facility] Interpretation and review of laboratory results Abnormal [facility] RBC LM.HPF (Urine sed) [#/Area] 0 TO 2 [facility] WBC LM.HPF (Urine sed) [#/Area] 0 TO 2 [facility] No Panel Informationon 09-28 Interpretation and review of laboratory results Abnormal [facility] Urinalysis with Reflex to Cu ltureon 09-29-2023 Bilirubin Ql (U) Negative NEGATIVE [facility] Clarity (U) Clear Clear [facility] Nitrite Ql (U) Negative NEGATIVE [facility] pH (U) 6.0 [pH] 5.0 - 9.0 [facility] Protein (U) [Mass/Vol] Negative NEGAT MATTHIAS mg/dL [facility] Specific gravity (U) [Rel density] High 1.010 - 1.020 [facility] Urobilinogen Qn (U) Normal 0.0 - 1. 0 EU/dL [facility] UPPER EUSon 09-08-2023 [facility] Gastroenterology Patient Name: Chioma Rainey Procedure Date: 09/08/2023 7:35 AM Date of : 1970 Admit Type: Outpatient Age: 53 Room: EUS Proc Room 01 Gender: Female Note Status: Finalized Attending MD: Sabrina Dee MD, MPH, [id number] Procedure: Upper EUS Indications: Chronic pancreatitis, Celiac [...] the (more content not included)... LAB, [facility] Radiology Study observation (narrative) [facility] Alanine aminotransferase [En zymatic activity/volume] in Serum or PlasmaOrdered By: Darrel Kellogg on 04-18-2023 ALT [Catalytic activity/Vol] 9 U/L 7-52 [facility] Albumin [Mass/volume] in Ser um or Plasma by Bromocresol green (BCG) dye binding methoOrdered By: Darrel Kellogg on 04-18-2023 Albumin BCG dye [Mass/Vol] 4.5 g/dL 3.5-5.7 [facility] Alkaline phosphatase [Enzyma tic activity/volume] in Serum or PlasmaOrdered By: Darrel Kellogg on 04-18-2023 ALP [Catalytic activity/Vol] 107 U/L 34-104 [facility] Amylase [Enzymatic activity/ volume] in Serum or PlasmaOrdered By: Darrel Kellogg on 04-18-2023 Amylase [Catalytic activity/Vol] 72 U/L 29-103 [facility] Aspartate aminotransferase [ Enzymatic activity/volume] in Serum or PlasmaOrdered By: Darrel Kellogg on 04-18-2023 AST [Catalytic activity/Vol] 14 U/L 13-39 [facility] Basophils Auto (Bld) [#/Vol] Ordered By: Darrel Kellogg on 04-18-2023 Basophils (Bld) [#/Vol] 0.1 10*3/uL 0.0-0.2 [facility] Basophils/100 WBC Auto (Bld) Ordered By: Darrel Kellogg on 04-18-2023 Basophils/100 WBC (Bld) 0.8 % . [facility] Bilirubin.direct [Mass/volum e] in Serum or PlasmaOrdered By: Darrel Kellogg on 04-18-2023 Bilirubin.direct [Mass/Vol] 0.00 mg/dL 0.03-0.18 [facility] Comment on above: If the DBIL is less than 0.1, IBIL is not able to becalculated. Bilirubin.total [Mass/volume ] in Serum or PlasmaOrdered By: Darrel Kellogg on 04-18-2023 Bilirubin [Mass/Vol] 0.3 mg/dL 0.3-1.0 [facility] Calcium [Mass/volume] in Ser um or PlasmaOrdered By: Darrel Kellogg on 02-10-2024 Calcium [Mass/Vol] 11.1 mg/dL 8.6-10.3 [facility] Carbon dioxide, total [Moles /volume] in Serum or PlasmaOrdered By: Darrel Kellogg on 04-18-2023 CO2 [Moles/Vol] 30.2 mmol/L 21.0-31.0 [facility] Chloride [Moles/volume] in S erika or PlasmaOrdered By: Darrel Kellogg on 04-18-2023 Chloride [Moles/Vol] 103 mmol/L 98-107 [facility] Creatinine [Mass/volume] in Serum or PlasmaOrdered By: Darrel Kellogg on 04-18-2023 Creatinine [Mass/Vol] 0.80 mg/dL 0.60-1.20 [facility] Eosinophils Auto (Bld) [#/Vo l]Ordered By: Darrel Kellogg on 04-18-2023 Eosinophils (Bld) [#/Vol] 0.0 10*3/uL 0.0-0.45 [facility] Eosinophils/100 WBC Auto (Bl d)Ordered By: Darrel Kellogg on 04-18-2023 Eosinophils/100 WBC (Bld) 0.2 % . [facility] Erythrocyte distribution wid th Auto (RBC) [Ratio]Ordered By: Darrel Kellogg on 04-18-2023 Erythrocyte distribution width (RBC) [Ratio] 13.4 % 11.9-15.3 [facility] Ethanol [Mass/volume] in Ser um or PlasmaOrdered By: Darrel Kellogg on 04-18-2023 Ethanol [Mass/Vol] mg/dL [facility] Ethanol [Mass/Vol] TNP [facility] Comment on above: Test not performed Globulin Calc (S) [Mass/Vol] Ordered By: Darrel Kellogg on 04-18-2023 Globulin (S) [Mass/Vol] 2.2 g/dL [facility] Glucose [Mass/volume] in Ser um or PlasmaOrdered By: Darrel Kellogg on 04-18-2023 Glucose [Mass/Vol] 108 mg/dL 70-100 [facility] Comment on above: ADA recommended refe rence rangeRandom Glucose Reference Range is dependent on time and content of last meal. Glucose of more than 200 mg/dL in a nonstressed, ambulatory subject supports the diagnosis of Diabetes Mellitus. Hematocrit Auto (Bld) [Volum e fraction]Ordered By: Darrel Kellogg on 04-18-2023 Hematocrit (Bld) [Volume fraction] 41.6 % 34.0-46.4 [facility] Hemoglobin [Mass/volume] in BloodOrdered By: Darrel Kellogg on 04-18-2023 Hemoglobin (Bld) [Mass/Vol] 14.3 g/dL 11.8-15.4 [facility] Leukocytes [#/volume] correc aurelia for nucleated erythrocytes in Blood by Automated counOrdered By: Darrel Kellogg on 04-18-2023 WBC corrected for nucl RBC Auto (Bld) [#/Vol] 12.1 10*3/uL 3.8-11.6 [facility] Lipase [Enzymatic activity/v olume] in Serum or PlasmaOrdered By: Darrel Kellogg on 04-18-2023 Lipase [Catalytic activity/Vol] 47.0 U/L 11.0-82.0 [facility] Lymphocytes Auto (Bld) [#/Vo l]Ordered By: Darrel Kellogg on 04-18-2023 Lymphocytes (Bld) [#/Vol] 1.6 10*3/uL 1.00-4.8 [facility] Lymphocytes/100 WBC Auto (Bl d)Ordered By: Darrel Kellogg on 04-18-2023 Lymphocytes/100 WBC (Bld) 12.8 % . [facility] MCH Auto (RBC) [Entitic mass ]Ordered By: Darrel Kellogg on 04-18-2023 MCH (RBC) [Entitic mass] 32.7 pg 24.7-34.3 [facility] MCHC Auto (RBC) [Mass/Vol]Or dered By: Darrel Kellogg on 04-18-2023 MCHC (RBC) [Mass/Vol] 34.3 g/dL 32.0-35.0 [facility] MCV Auto (RBC) [Entitic vol] Ordered By: Darrel Kellogg on 04-18-2023 MCV (RBC) [Entitic vol] 95.5 fL 80-100 [facility] Monocyte distribution width [Entitic volume] in Blood by AutomatedOrdered By: Darrel Kellogg on 04-18-2023 Monocyte distribution width Auto (Bld) [Entitic vol] 16.25 % 0.00-20.00 [facility] Monocytes Auto (Bld) [#/Vol] Ordered By: Darrel Kellogg on 04-18-2023 Monocytes (Bld) [#/Vol] 0.6 10*3/uL 0.0-0.8 [facility] Monocytes/100 WBC Auto (Bld) Ordered By: Darrel Kellogg on 04-18-2023 Monocytes/100 WBC (Bld) 5.4 % . [facility] Neutrophils Auto (Bld) [#/Vo l]Ordered By: Darrel Kellogg on 04-18-2023 Neutrophils (Bld) [#/Vol] 9.8 10*3/uL 1.8-7.7 [facility] Neutrophils/100 WBC Auto (Bl d)Ordered By: Darrel Kellogg on 04-18-2023 Neutrophils/100 WBC (Bld) 80.8 % . [facility] No Panel InformationOrdered By: Darrel Kellogg on 04-18-2023 Estimated GFR (CKD-EPI) > 60.0 mL/Min [facility] Creatinine Clearance (Chem 64.32 [facility] Nucleated erythrocytes [Pres ence] in Blood by Automated countOrdered By: Darrel Kellogg on 04-18-2023 Nucleated RBC Auto Ql (Bld) 0.0 /100{WBC} 0-0.5 [facility] Platelet mean volume Auto (B ld) [Entitic vol]Ordered By: Darrel Kellogg on 04-18-2023 Platelet mean volume (Bld) [Entitic vol] 8.1 fL 6.3-10.7 [facility] Platelets Auto (Bld) [#/Vol] Ordered By: Darrel Kellogg on 04-18-2023 Platelets (Bld) [#/Vol] 227 10*3/uL 150-450 [facility] Potassium [Moles/volume] in Serum or PlasmaOrdered By: Darrel Kellogg on 04-18-2023 Potassium [Moles/Vol] 3.2 mmol/L 3.5-5.1 [facility] Protein [Mass/volume] in Ser um or PlasmaOrdered By: Darrel Kellogg on 04-18-2023 Protein [Mass/Vol] 6.7 g/dL 6.4-8.9 [facility] RBC Auto (Bld) [#/Vol]Ordere d By: Darrel Kellogg on 04-18-2023 RBC (Bld) [#/Vol] 4.35 10*6/uL 3.60-5.00 [facility] Serum or plasma albumin/glob ulin mass ratioOrdered By: Darrel Kellogg on 04-18-2023 Albumin/Globulin [Mass ratio] 2.0 {ratio} [facility] Serum or plasma anion gap de terminationOrdered By: Darrel Kellogg on 04-18-2023 Anion gap [Moles/Vol] 10.0 mmol/L 6.0-15.0 [facility] Serum or plasma non-glucuron idated bilirubin measurement (mass/volume)Ordered By: Darrel Kellogg on 04-18-2023 Bilirubin.indirect [Mass/Vol] 0.3 mg/dL [facility] Sodium [Moles/volume] in Ser um or PlasmaOrdered By: Darrel Kellogg on 04-18-2023 Sodium [Moles/Vol] 140 mmol/L 136-145 [facility] Urea nitrogen [Mass/volume] in Serum or PlasmaOrdered By: Darrel Kellogg on 04-18-2023 Urea nitrogen [Mass/Vol] 7 mg/dL 7- [facility] WBC Auto (Bld) [#/Vol]Ordere d By: Darrel Kellogg on 04-18-2023 WBC (Bld) [#/Vol] 12.1 10*3/uL 3.8-11.6 [facility] Activated partial thrombopla stin time (aPTT) in platelet poor plasma by coagulation aOrdered By: Rivera Lopez on 04-11-2023 aPTT Coag (PPP) [Time] 23.3 s 25.1-36.5 [facility] Comment on above: A hematocrit value g reater than 55% may lead to inaccurate results in coagulation testing. Patients having hematocrit values >55% require a special collection tube for coagulation studies. Please contact the laboratory at [phone] for redraw instructions. Alanine aminotransferase [En zymatic activity/volume] in Serum or PlasmaOrdered By: Rivera Lopez on 04-11-2023 ALT [Catalytic activity/Vol] 13 U/L 7-52 [facility] Albumin [Mass/volume] in Ser um or Plasma by Bromocresol green (BCG) dye binding methoOrdered By: Rivera Lopez on 04-11-2023 Albumin BCG dye [Mass/Vol] 4.5 g/dL 3.5-5.7 [facility] Alkaline phosphatase [Enzyma tic activity/volume] in Serum or PlasmaOrdered By: Rivera Lopez on 04-11-2023 ALP [Catalytic activity/Vol] 111 U/L 34-104 [facility] Aspartate aminotransferase [ Enzymatic activity/volume] in Serum or PlasmaOrdered By: Rivera Lopez on 04-11-2023 AST [Catalytic activity/Vol] 17 U/L 13-39 [facility] Automated erythrocytes count in urine sediment (number/area)Ordered By: Rivera Lopez on 04-11-2023 RBC Auto (Urine sed) [#/Area] 0-1 [HPF] 0-4 [facility] Automated leukocytes count i n urine sediment (number/area)Ordered By: Rivera Lopez on 04-11-2023 WBC Auto (Urine sed) [#/Area] 3-4 [HPF] 0-4 [facility] Basophils Auto (Bld) [#/Vol] Ordered By: Rivera Lopez on 04-11-2023 Basophils (Bld) [#/Vol] 0.1 10*3/uL 0.0-0.2 [facility] Basophils/100 WBC Auto (Bld) Ordered By: Rivera Lopez on 04-11-2023 Basophils/100 WBC (Bld) 0.4 % . [facility] Bilirubin Test strip Ql (U)O rdered By: Rivera Lopez on 04-11-2023 Bilirubin Ql (U) Negative Negative [facility] Bilirubin.direct [Mass/volum e] in Serum or PlasmaOrdered By: Rivera Lopez on 04-11-2023 Bilirubin.direct [Mass/Vol] 0.00 mg/dL 0.03-0.18 [facility] Comment on above: If the DBIL is less than 0.1, IBIL is not able to becalculated. Bilirubin.total [Mass/volume ] in Serum or PlasmaOrdered By: Rivera Lopez on 04-11-2023 Bilirubin [Mass/Vol] 0.3 mg/dL 0.3-1.0 [facility] Calcium [Mass/volume] in Ser um or PlasmaOrdered By: Rivera Lopez on 04-11-2023 Calcium [Mass/Vol] 10.3 mg/dL 8.6-10.3 [facility] Carbon dioxide, total [Moles /volume] in Serum or PlasmaOrdered By: Rivera Lopez on 04-11-2023 CO2 [Moles/Vol] 26.9 mmol/L 21.0-31.0 [facility] Chloride [Moles/volume] in S erika or PlasmaOrdered By: Rivera Lopez on 04-11-2023 Chloride [Moles/Vol] 103 mmol/L 98-107 [facility] Color Auto (U)Ordered By: Og Lopez on 04-11-2023 Color (U) Yellow Yellow [facility] Creatinine [Mass/volume] in Serum or PlasmaOrdered By: Rivera Lopez on 04-11-2023 Creatinine [Mass/Vol] 0.86 mg/dL 0.60-1.20 [facility] Eosinophils Auto (Bld) [#/Vo l]Ordered By: Rivera Lopez on 04-11-2023 Eosinophils (Bld) [#/Vol] 0.0 10*3/uL 0.0-0.45 [facility] Eosinophils/100 WBC Auto (Bl d)Ordered By: Rivera Lopez on 04-11-2023 Eosinophils/100 WBC (Bld) 0.0 % . [facility] Erythrocyte distribution wid th Auto (RBC) [Ratio]Ordered By: Rivera Lopez on 04-11-2023 Erythrocyte distribution width (RBC) [Ratio] 13.6 % 11.9-15.3 [facility] Globulin Calc (S) [Mass/Vol] Ordered By: Rivera Lopez on 04-11-2023 Globulin (S) [Mass/Vol] 2.4 g/dL [facility] Glucose [Mass/volume] in Ser um or PlasmaOrdered By: Rivera Lopez on 04-11-2023 Glucose [Mass/Vol] 121 mg/dL 70-100 [facility] Comment on above: ADA recommended refe rence rangeRandom Glucose Reference Range is dependent on time and content of last meal. Glucose of more than 200 mg/dL in a nonstressed, ambulatory subject supports the diagnosis of Diabetes Mellitus. Hematocrit Auto (Bld) [Volum e fraction]Ordered By: Rivera Lopez on 04-11-2023 Hematocrit (Bld) [Volume fraction] 41.3 % 34.0-46.4 [facility] Hemoglobin [Mass/volume] in BloodOrdered By: Rivera Lopez on 04-11-2023 Hemoglobin (Bld) [Mass/Vol] 13.7 g/dL 11.8-15.4 [facility] INR in Platelet poor plasma by Coagulation assayOrdered By: Rivera Lopez on 04-11-2023 INR Coag (PPP) [Relative time] 1.0 {INR} [facility] Comment on above: INR Therapeutic [...] 04-11-2023 Ketones (U) [Mass/Vol] Negative Negative Fi [facility] - UrinalysisOrder ed By: Rivera Lopez on 04-11-2023 Hyaline casts LM Ql (Urine sed) None seen [LPF] 0-8 [facility] Leukocytes [#/volume] correc aurelia for nucleated erythrocytes in Blood by Automated counOrdered By: Rivera Lopez on 04-11-2023 WBC corrected for nucl RBC Auto (Bld) [#/Vol] 13.9 10*3/uL 3.8-11.6 [facility] Lipase [Enzymatic activity/v olume] in Serum or PlasmaOrdered By: Rivera Lopez on 04-11-2023 Lipase [Catalytic activity/Vol] 26.0 U/L 11.0-82.0 [facility] Lymphocytes Auto (Bld) [#/Vo l]Ordered By: Rivera Lopez on 04-11-2023 Lymphocytes (Bld) [#/Vol] 1.1 10*3/uL 1.00-4.8 [facility] Lymphocytes/100 WBC Auto (Bl d)Ordered By: Rivera Lopez on 04-11-2023 Lymphocytes/100 WBC (Bld) 8.1 % . [facility] MCH Auto (RBC) [Entitic mass ]Ordered By: Rivera Lopez on 04-11-2023 MCH (RBC) [Entitic mass] 32.2 pg 24.7-34.3 [facility] MCHC Auto (RBC) [Mass/Vol]Or dered By: Rivera Lopez on 04-11-2023 MCHC (RBC) [Mass/Vol] 33.2 g/dL 32.0-35.[address] [facility] MCV Auto (RBC) [Entitic vol] Ordered By: Rivera Lopez on 04-11-2023 MCV (RBC) [Entitic vol] 96.8 fL 80-100 [facility] Monocyte distribution width [Entitic volume] in Blood by AutomatedOrdered By: Rivera Lopez on 04-11-2023 Monocyte distribution width Auto (Bld) [Entitic vol] 17.01 % 0.00-20.00 [facility] Monocytes Auto (Bld) [#/Vol] Ordered By: Rivera Lopez on 04-11-2023 Monocytes (Bld) [#/Vol] 0.6 10*3/uL 0.0-0.8 [facility] Monocytes/100 WBC Auto (Bld) Ordered By: Rivera Lopez on 04-11-2023 Monocytes/100 WBC (Bld) 4.3 % . [facility] Neutrophils Auto (Bld) [#/Vo l]Ordered By: Rivera Lopez on 04-11-2023 Neutrophils (Bld) [#/Vol] 12.1 10*3/uL 1.8-7.7 [facility] Neutrophils/100 WBC Auto (Bl d)Ordered By: Rivera Lopez on 04-11-2023 Neutrophils/100 WBC (Bld) 87.2 % . [facility] Nitrite Test strip Ql (U)Ord ered By: Rivera Lopez on 04-11-2023 Nitrite Ql (U) Negative Negative [facility] No Panel InformationOrdered By: Rivera Lopez on 04-11-2023 Estimated GFR (CKD-EPI) > 60.0 mL/Min [facility] Creatinine Clearance (Chem 59.83 [facility] Nucleated erythrocytes [Pres ence] in Blood by Automated countOrdered By: Rivera Lopez on 04-11-2023 Nucleated RBC Auto Ql (Bld) 0.0 /100{WBC} 0-0.5 [facility] Platelet mean volume Auto (B ld) [Entitic vol]Ordered By: Rivera Lopez on 04-11-2023 Platelet mean volume (Bld) [Entitic vol] 7.7 fL 6.3-10.7 [facility] Platelets Auto (Bld) [#/Vol] Ordered By: Rivera Lopez on 04-11-2023 Platelets (Bld) [#/Vol] 262 10*3/uL 150-450 [facility] Potassium [Moles/volume] in Serum or PlasmaOrdered By: Rivera Lopez on 04-11-2023 Potassium [Moles/Vol] 4.0 mmol/L 3.5-5.1 [facility] Protein Auto test strip (U) [Mass/Vol]Ordered By: Rivera Lopez on 04-11-2023 Protein (U) [Mass/Vol] Negative Negative [facility] Protein [Mass/volume] in Ser um or PlasmaOrdered By: Rivera Lopez on 04-11-2023 Protein [Mass/Vol] 6.9 g/dL 6.4-8.9 [facility] Prothrombin time (PT)Ordered By: Rivera Lopez on 04-11-2023 PT Coag (PPP) [Time] 11.2 s 9.0-12.9 [facility] Comment on above: A hematocrit value g reater than 55% may lead to inaccurate results in coagulation testing. Patients having hematocrit values >55% require a special collection tube for coagulation studies. Please contact the laboratory at [phone] for redraw instructions. RBC Auto (Bld) [#/Vol]Ordere d By: Rivera Lopez on 04-11-2023 RBC (Bld) [#/Vol] 4.27 10*6/uL 3.60-5.00 [facility] Serum or plasma albumin/glob ulin mass ratioOrdered By: Rivera Lopez on 04-11-2023 Albumin/Globulin [Mass ratio] 1.9 {ratio} [facility] Serum or plasma anion gap de terminationOrdered By: Rivera Lopez on 04-11-2023 Anion gap [Moles/Vol] 14.1 mmol/L 6.0-15.0 [facility] Serum or plasma non-glucuron idated bilirubin measurement (mass/volume)Ordered By: Rivera Lopez on 04-11-2023 Bilirubin.indirect [Mass/Vol] 0.3 mg/dL [facility] Sodium [Moles/volume] in Ser um or PlasmaOrdered By: Rivera Lopez on 04-11-2023 Sodium [Moles/Vol] 140 mmol/L 136-145 [facility] Specific gravity Auto test s trip (U) [Rel density]Ordered By: Rivera Lopez on 04-11-2023 Specific gravity (U) [Rel density] > 1.050 1.001-1.03 0 [facility] Squamous epithelial cells de tection in urine sediment by light microscopyOrdered By: Rivera Lopez on 04-11-2023 Epithelial cells.squamous LM Ql (Urine sed) 0-1 [HPF] 0-2 [facility] Urea nitrogen [Mass/volume] in Serum or PlasmaOrdered By: Rivera Lopez on 04-11-2023 Urea nitrogen [Mass/Vol] 5 mg/dL 7-25 [facility] Urine bacteria detection by automated methodOrdered By: Rivera Lopez on 04-11-2023 Bacteria Auto Ql (U) None seen None Seen [facility] Urine clarity by refractomet ry automatedOrdered By: Rivera Lopez on 04-11-2023 Clarity Refractometry automated (U) Turbid Clear [facility] Urine glucose measurement by automated test strip (mass/volume)Ordered By: Rivera Lopez on 04-11-2023 Glucose Auto test strip (U) [Mass/Vol] Normal mg/dL Normal [facility] Urine hemoglobin detection b y automated test stripOrdered By: Rivera Lopez on 04-11-2023 Hemoglobin Auto test strip Ql (U) Negative Negative [facility] Urine leukocyte esterase det ection by automated test stripOrdered By: Rivera Lopez on 04-11-2023 Leukocyte esterase Auto test strip Ql (U) Negative Negative [facility] Urobilinogen Auto test strip (U) [Mass/Vol]Ordered By: Rivera Lopez on 04-11-2023 Urobilinogen (U) [Mass/Vol] Normal mg/dL Normal [facility] WBC Auto (Bld) [#/Vol]Ordere d By: Rivera Lopez on 04-11-2023 WBC (Bld) [#/Vol] 13.9 10*3/uL 3.8-11.6 [facility] pH Auto test strip (U)Ordere d By: Rivera Lopez on 04-11-2023 pH (U) 8.0 [pH] 5.0-9.0 [facility] Alanine aminotransferase [En zymatic activity/volume] in Serum or PlasmaOrdered By: Diomedes Posadas on 04-02-2023 ALT [Catalytic activity/Vol] 11 U/L 7-52 [facility] Albumin [Mass/volume] in Ser um or Plasma by Bromocresol green (BCG) dye binding methoOrdered By: Diomedes Posadas on 04-02-2023 Albumin BCG dye [Mass/Vol] 4.2 g/dL 3.5-5.7 [facility] Alkaline phosphatase [Enzyma tic activity/volume] in Serum or PlasmaOrdered By: Diomedes Posadas on 04-02-2023 ALP [Catalytic activity/Vol] 101 U/L 34-104 [facility] Aspartate aminotransferase [ Enzymatic activity/volume] in Serum or PlasmaOrdered By: Diomedes Posadas on 04-02-2023 AST [Catalytic activity/Vol] 21 U/L 13-39 [facility] Basophils Auto (Bld) [#/Vol] Ordered By: Diomedes Posadas on 04-02-2023 Basophils (Bld) [#/Vol] 0.0 10*3/uL 0.0-0.2 [facility] Basophils/100 WBC Auto (Bld) Ordered By: Diomedes Posadas on 04-02-2023 Basophils/100 WBC (Bld) 0.2 % . [facility] Bilirubin Test strip Ql (U)O rdered By: Diomedes Posadas on 04-02-2023 Bilirubin Ql (U) Negative Negative [facility] Bilirubin.total [Mass/volume ] in Serum or PlasmaOrdered By: Diomedes Posadas on 04-02-2023 Bilirubin [Mass/Vol] 0.3 mg/dL 0.3-1.0 [facility] Calcium [Mass/volume] in Ser um or PlasmaOrdered By: Diomedes Posadas on 04-02-2023 Calcium [Mass/Vol] 9.7 mg/dL 8.6-10.3 [facility] Carbon dioxide, total [Moles /volume] in Serum or PlasmaOrdered By: Diomedes Posadas on 04-02-2023 CO2 [Moles/Vol] 26.3 mmol/L 21.0-31.0 [facility] Chloride [Moles/volume] in S erika or PlasmaOrdered By: Diomedes Posadas on 04-02-2023 Chloride [Moles/Vol] 106 mmol/L 98-107 [facility] Color Auto (U)Ordered By: Reshma Posadas on 04-02-2023 Color (U) Yellow Yellow [facility] Creatinine [Mass/volume] in Serum or PlasmaOrdered By: Diomedes Posadas on 04-02-2023 Creatinine [Mass/Vol] 0.82 mg/dL 0.60-1.20 [facility] Eosinophils Auto (Bld) [#/Vo l]Ordered By: Diomedes Posadas on 04-02-2023 Eosinophils (Bld) [#/Vol] 0.1 10*3/uL 0.0-0.45 [facility] Eosinophils/100 WBC Auto (Bl d)Ordered By: Diomedes Posadas on 04-02-2023 Eosinophils/100 WBC (Bld) 1.7 % . [facility] Erythrocyte distribution wid th Auto (RBC) [Ratio]Ordered By: Diomedes Posadas on 04-02-2023 Erythrocyte distribution width (RBC) [Ratio] 13.3 % 11.9-15.3 [facility] Fibrin D-dimer [Presence] in Platelet poor plasma by Latex agglutinationOrdered By: Diomedes Posadas on 04-02-2023 Fibrin D-dimer LA Ql (PPP) < 200 ng/mL 0-243 [facility] Comment on above: The reference [...] coagulation studies. Please contact the laboratory at [phone] for redraw instructions. Globulin Calc (S) [Mass/Vol] Ordered By: Diomedes Posadas on 04-02-2023 Globulin (S) [Mass/Vol] 2.4 g/dL [facility] Glucose [Mass/volume] in Ser um or PlasmaOrdered By: Diomedes Posadas on 04-02-2023 Glucose [Mass/Vol] 90 mg/dL 70-100 [facility] Comment on above: ADA recommended refe rence rangeRandom Glucose Reference Range is dependent on time and content of last meal. Glucose of more than 200 mg/dL in a nonstressed, ambulatory subject supports the diagnosis of Diabetes Mellitus. Hematocrit Auto (Bld) [Volum e fraction]Ordered By: Diomedes Posadas on 04-02-2023 Hematocrit (Bld) [Volume fraction] 41.8 % 34.0-46.4 [facility] Hemoglobin [Mass/volume] in BloodOrdered By: Diomedes Posadas on 04-02-2023 Hemoglobin (Bld) [Mass/Vol] 14.2 g/dL 11.8-15.4 [facility] Ketones Auto test strip (U) [Mass/Vol]Ordered By: Diomedes Posadas on 04-02-2023 Ketones (U) [Mass/Vol] Negative Negative [facility] Leukocytes [#/volume] correc aurelia for nucleated erythrocytes in Blood by Automated counOrdered By: Diomedes Posadas on 04-02-2023 WBC corrected for nucl RBC Auto (Bld) [#/Vol] 6.2 10*3/uL 3.8-11.6 [facility] Lipase [Enzymatic activity/v olume] in Serum or PlasmaOrdered By: Diomedes Posadas on 04-02-2023 Lipase [Catalytic activity/Vol] 186.0 U/L 11.0-82.0 [facility] Lymphocytes Auto (Bld) [#/Vo l]Ordered By: Diomedes Posadas on 04-02-2023 Lymphocytes (Bld) [#/Vol] 1.8 10*3/uL 1.00-4.8 [facility] Lymphocytes/100 WBC Auto (Bl d)Ordered By: Diomedes Posadas on 04-02-2023 Lymphocytes/100 WBC (Bld) 29.2 % . [facility] MCH Auto (RBC) [Entitic mass ]Ordered By: Diomedes Posadas on 04-02-2023 MCH (RBC) [Entitic mass] 33.1 pg 24.7-34.3 [facility] MCHC Auto (RBC) [Mass/Vol]Or dered By: Diomedes Posadas on 04-02-2023 MCHC (RBC) [Mass/Vol] 34.0 g/dL 32.0-35.0 [facility] MCV Auto (RBC) [Entitic vol] Ordered By: Diomedes Posadas on 04-02-2023 MCV (RBC) [Entitic vol] 97.4 fL 80-100 [facility] Monocyte distribution width [Entitic volume] in Blood by AutomatedOrdered By: Diomedes Posadas on 04-02-2023 Monocyte distribution width Auto (Bld) [Entitic vol] 17.36 % 0.00-20.00 [facility] Monocytes Auto (Bld) [#/Vol] Ordered By: Diomedes Posadas on 04-02-2023 Monocytes (Bld) [#/Vol] 0.6 10*3/uL 0.0-0.8 [facility] Monocytes/100 WBC Auto (Bld) Ordered By: Diomedes Posadas on 04-02-2023 Monocytes/100 WBC (Bld) 9.8 % . [facility] Neutrophils Auto (Bld) [#/Vo l]Ordered By: Diomedes Posadas on 04-02-2023 Neutrophils (Bld) [#/Vol] 3.6 10*3/uL 1.8-7.7 [facility] Neutrophils/100 WBC Auto (Bl d)Ordered By: Diomedes Posadas on 04-02-2023 Neutrophils/100 WBC (Bld) 59.1 % . [facility] Nitrite Test strip Ql (U)Ord ered By: Diomedes Posadas on 04-02-2023 Nitrite Ql (U) Negative Negative [facility] No Panel InformationOrdered By: Diomedes Posadas on 04-02-2023 Estimated GFR (CKD-EPI) > 60.0 mL/Min [facility] Creatinine Clearance (Chem 62.75 [facility] Nucleated erythrocytes [Pres ence] in Blood by Automated countOrdered By: Diomedes Posadas on 04-02-2023 Nucleated RBC Auto Ql (Bld) 0.1 /100{WBC} 0-0.5 [facility] Platelet mean volume Auto (B ld) [Entitic vol]Ordered By: Diomedes Posadas on 04-02-2023 Platelet mean volume (Bld) [Entitic vol] 8.3 fL 6.3-10.7 [facility] Platelets Auto (Bld) [#/Vol] Ordered By: Diomedes Posadas on 04-02-2023 Platelets (Bld) [#/Vol] 236 10*3/uL 150-450 [facility] Potassium [Moles/volume] in Serum or PlasmaOrdered By: Diomedes Posadas on 04-02-2023 Potassium [Moles/Vol] 4.3 mmol/L 3.5-5.1 [facility] Protein Auto test strip (U) [Mass/Vol]Ordered By: Diomedes Posadas on 04-02-2023 Protein (U) [Mass/Vol] Negative Negative [facility] Protein [Mass/volume] in Ser um or PlasmaOrdered By: Diomedes Posadas on 04-02-2023 Protein [Mass/Vol] 6.6 g/dL 6.4-8.9 [facility] RBC Auto (Bld) [#/Vol]Ordere d By: Diomedes Posadas on 04-02-2023 RBC (Bld) [#/Vol] 4.29 10*6/uL 3.60-5.00 [facility] Serum or plasma albumin/glob ulin mass ratioOrdered By: Diomedes Posadas on 04-02-2023 Albumin/Globulin [Mass ratio] 1.8 {ratio} [facility] Serum or plasma anion gap de terminationOrdered By: Diomedes Posadas on 04-02-2023 Anion gap [Moles/Vol] TNP [facility] Comment on above: Test not performed Sodium [Moles/volume] in Ser um or PlasmaOrdered By: Diomedes Posadas on 04-02-2023 Sodium [Moles/Vol] 137 mmol/L 136-145 [facility] Specific gravity Auto test s trip (U) [Rel density]Ordered By: Diomedes Posadas on 04-02-2023 Specific gravity (U) [Rel density] 1.022 1.001-1.03 0 [facility] Troponin I.cardiac [Mass/vol ume] in Serum or Plasma by Detection limit <= 0.01 ng/Ordered By: Diomedes Posadas on 04-02-2023 Troponin I.cardiac DL <= 0.01 ng/mL [Mass/Vol] 2.6 pg/mL 0.0-15.0 [facility] Urea nitrogen [Mass/volume] in Serum or PlasmaOrdered By: Diomedes Posadas on 04-02-2023 Urea nitrogen [Mass/Vol] 7 mg/dL 09-30 [facility] Urine clarity by refractomet ry automatedOrdered By: Diomedes Posadas on 04-02-2023 Clarity Refractometry automated (U) Clear Clear [facility] Urine glucose measurement by automated test strip (mass/volume)Ordered By: Diomedes Posadas on 04-02-2023 Glucose Auto test strip (U) [Mass/Vol] Normal mg/dL Normal [facility] Urine hemoglobin detection b y automated test stripOrdered By: Diomedes Posadas on 04-02-2023 Hemoglobin Auto test strip Ql (U) Negative Negative [facility] Urine leukocyte esterase det ection by automated test stripOrdered By: Diomedes Posadas on 04-02-2023 Leukocyte esterase Auto test strip Ql (U) Negative Negative [facility] Urobilinogen Auto test strip (U) [Mass/Vol]Ordered By: Diomedes Posadas on 04-02-2023 Urobilinogen (U) [Mass/Vol] Normal mg/dL Normal [facility] WBC Auto (Bld) [#/Vol]Ordere d By: Diomedes Posadas on 04-02-2023 WBC (Bld) [#/Vol] 6.2 10*3/uL 3.8-11.6 [facility] pH Auto test strip (U)Ordere d By: Diomedes Posadas on 04-02-2023 pH (U) 5.5 [pH] 5.0-9.0 [facility] Alanine aminotransferase [En zymatic activity/volume] in Serum or PlasmaOrdered By: Diomedes Posadas on 11-09-2022 ALT [Catalytic activity/Vol] 12 U/L 7-52 [facility] Albumin [Mass/volume] in Ser um or Plasma by Bromocresol green (BCG) dye binding methoOrdered By: Diomedes Posadas on 11-09-2022 Albumin BCG dye [Mass/Vol] 4.4 g/dL 3.5-5.7 [facility] Alkaline phosphatase [Enzyma tic activity/volume] in Serum or PlasmaOrdered By: Diomedes Posadas on 11-09-2022 ALP [Catalytic activity/Vol] 126 U/L 34-104 [facility] Aspartate aminotransferase [ Enzymatic activity/volume] in Serum or PlasmaOrdered By: Diomedes Posadas on 11-09-2022 AST [Catalytic activity/Vol] 17 U/L 13-39 [facility] Basophils Auto (Bld) [#/Vol] Ordered By: Diomedes Posadas on 11-09-2022 Basophils (Bld) [#/Vol] 0.1 10*3/uL 0.0-0.2 [facility] Basophils/100 WBC Auto (Bld) Ordered By: Diomedes Posadas on 11-09-2022 Basophils/100 WBC (Bld) 0.9 % . [facility] Bilirubin Test strip Ql (U)O rdered By: Diomedes Posadas on 11-09-2022 Bilirubin Ql (U) Negative Negative [facility] Bilirubin.total [Mass/volume ] in Serum or PlasmaOrdered By: Diomedes Posadas on 11-09-2022 Bilirubin [Mass/Vol] 0.3 mg/dL 0.3-1.0 [facility] Calcium [Mass/volume] in Ser um or PlasmaOrdered By: Diomedes Posadas on 11-09-2022 Calcium [Mass/Vol] 9.7 mg/dL 8.6-10.3 [facility] Carbon dioxide, total [Moles /volume] in Serum or PlasmaOrdered By: Diomedes Posadas on 11-09-2022 CO2 [Moles/Vol] 28.6 mmol/L 21.0-31.0 [facility] Chloride [Moles/volume] in S erika or PlasmaOrdered By: Diomedes Posadas on 11-09-2022 Chloride [Moles/Vol] 107 mmol/L 98-107 [facility] Color Auto (U)Ordered By: Reshma Posadas on 11-09-2022 Color (U) Yellow Yellow [facility] Creatinine [Mass/volume] in Serum or PlasmaOrdered By: Diomedes Posadas on 11-09-2022 Creatinine [Mass/Vol] 0.78 mg/dL 0.60-1.20 [facility] Eosinophils Auto (Bld) [#/Vo l]Ordered By: Diomedes Posadas on 11-09-2022 Eosinophils (Bld) [#/Vol] 0.1 10*3/uL 0.0-0.45 [facility] Eosinophils/100 WBC Auto (Bl d)Ordered By: Diomedes Posadas on 11-09-2022 Eosinophils/100 WBC (Bld) 1.6 % . [facility] Erythrocyte distribution wid th Auto (RBC) [Ratio]Ordered By: Diomedes Posadas on 11-09-2022 Erythrocyte distribution width (RBC) [Ratio] 13.6 % 11.9-15.3 [facility] Globulin Calc (S) [Mass/Vol] Ordered By: Diomedes Posadas on 11-09-2022 Globulin (S) [Mass/Vol] 2.7 g/dL [facility] Glucose [Mass/volume] in Ser um or PlasmaOrdered By: Diomedes Posadas on 11-09-2022 Glucose [Mass/Vol] 96 mg/dL 70-100 [facility] Comment on above: ADA recommended refe rence rangeRandom Glucose Reference Range is dependent on time and content of last meal. Glucose of more than 200 mg/dL in a nonstressed, ambulatory subject supports the diagnosis of Diabetes Mellitus. Hematocrit Auto (Bld) [Volum e fraction]Ordered By: Diomedes Posadas on 11-09-2022 Hematocrit (Bld) [Volume fraction] 44.4 % 34.0-46.4 [facility] Hemoglobin [Mass/volume] in BloodOrdered By: Diomedes Posadas on 11-09-2022 Hemoglobin (Bld) [Mass/Vol] 14.9 g/dL 11.8-15.4 [facility] Ketones Auto test strip (U) [Mass/Vol]Ordered By: Diomedes Posadas on 11-09-2022 Ketones (U) [Mass/Vol] Negative Negative [facility] Leukocytes [#/volume] correc aurelia for nucleated erythrocytes in Blood by Automated counOrdered By: Diomedes Posadas on 11-09-2022 WBC corrected for nucl RBC Auto (Bld) [#/Vol] 9.3 10*3/uL 3.8-11.6 [facility] Lipase [Enzymatic activity/v olume] in Serum or PlasmaOrdered By: Diomedes Posadas on 11-09-2022 Lipase [Catalytic activity/Vol] 78.0 U/L 11.0-82.0 [facility] Lymphocytes Auto (Bld) [#/Vo l]Ordered By: Diomedes Posadas on 11-09-2022 Lymphocytes (Bld) [#/Vol] 2.2 10*3/uL 1.00-4.8 [facility] Lymphocytes/100 WBC Auto (Bl d)Ordered By: Diomedes Posadas on 11-09-2022 Lymphocytes/100 WBC (Bld) 24.0 % . [facility] MCH Auto (RBC) [Entitic mass ]Ordered By: Diomedes Posadas on 11-09-2022 MCH (RBC) [Entitic mass] 32.8 pg 24.7-34.3 [facility] MCHC Auto (RBC) [Mass/Vol]Or dered By: Diomedes Posadas on 11-09-2022 MCHC (RBC) [Mass/Vol] 33.4 g/dL 32.0-35.[address] [facility] MCV Auto (RBC) [Entitic vol] Ordered By: Diomedes Posadas on 11-09-2022 MCV (RBC) [Entitic vol] 98.2 fL 80-100 [facility] Monocyte distribution width [Entitic volume] in Blood by AutomatedOrdered By: Diomedes Posadas on 11-09-2022 Monocyte distribution width Auto (Bld) [Entitic vol] 18.76 % 0.00-20.00 [facility] Monocytes Auto (Bld) [#/Vol] Ordered By: Diomedes Posadas on 11-09-2022 Monocytes (Bld) [#/Vol] 0.8 10*3/uL 0.0-0.8 [facility] Monocytes/100 WBC Auto (Bld) Ordered By: Diomedes Posadas on 11-09-2022 Monocytes/100 WBC (Bld) 8.1 % . [facility] Neutrophils Auto (Bld) [#/Vo l]Ordered By: Diomedes Posadas on 11-09-2022 Neutrophils (Bld) [#/Vol] 6.1 10*3/uL 1.8-7.7 [facility] Neutrophils/100 WBC Auto (Bl d)Ordered By: Diomedes Posadas on 11-09-2022 Neutrophils/100 WBC (Bld) 65.4 % . [facility] Nitrite Test strip Ql (U)Ord ered By: Diomedes Posadas on 11-09-2022 Nitrite Ql (U) Negative Negative [facility] No Panel InformationOrdered By: Diomedes Posadas on 11-09-2022 Estimated GFR (CKD-EPI) > 60.0 mL/Min [facility] Creatinine Clearance (Chem 69.00 [facility] Nucleated erythrocytes [Pres ence] in Blood by Automated countOrdered By: Diomedes Posadas on 11-09-2022 Nucleated RBC Auto Ql (Bld) 0.0 /100{WBC} 0-0.5 [facility] Platelet mean volume Auto (B ld) [Entitic vol]Ordered By: Diomedes Posadas on 11-09-2022 Platelet mean volume (Bld) [Entitic vol] 8.3 fL 6.3-10.7 [facility] Platelets Auto (Bld) [#/Vol] Ordered By: Diomedes Posadas on 11-09-2022 Platelets (Bld) [#/Vol] 246 10*3/uL 150-450 [facility] Potassium [Moles/volume] in Serum or PlasmaOrdered By: iDomedes Posadas on 11-09-2022 Potassium [Moles/Vol] 3.7 mmol/L 3.5-5.1 [facility] Protein Auto test strip (U) [Mass/Vol]Ordered By: Diomedes Posadas on 11-09-2022 Protein (U) [Mass/Vol] Negative Negative [facility] Protein [Mass/volume] in Ser um or PlasmaOrdered By: Diomedes Posadas on 11-09-2022 Protein [Mass/Vol] 7.1 g/dL 6.4-8.9 [facility] RBC Auto (Bld) [#/Vol]Ordere d By: Diomedes Posadas on 11-09-2022 RBC (Bld) [#/Vol] 4.52 10*6/uL 3.60-5.00 [facility] Serum or plasma albumin/glob ulin mass ratioOrdered By: Diomedes Posadas on 11-09-2022 Albumin/Globulin [Mass ratio] 1.6 {ratio} [facility] Serum or plasma anion gap de terminationOrdered By: Diomedes Posadas on 11-09-2022 Anion gap [Moles/Vol] 8.1 mmol/L 6.0-15.0 [facility] Sodium [Moles/volume] in Ser um or PlasmaOrdered By: Diomedes Posadas on 11-09-2022 Sodium [Moles/Vol] 140 mmol/L 136-145 [facility] Specific gravity Auto test s trip (U) [Rel density]Ordered By: Diomedes Posadas on 11-09-2022 Specific gravity (U) [Rel density] 1.012 1.001-1.03 0 [facility] Troponin I.cardiac [Mass/vol ume] in Serum or Plasma by Detection limit <= 0.01 ng/Ordered By: Diomedes Posadas on 11-09-2022 Troponin I.cardiac DL <= 0.01 ng/mL [Mass/Vol] 3.0 pg/mL 0.0-15.0 [facility] Urea nitrogen [Mass/volume] in Serum or PlasmaOrdered By: Diomedes Posadas on 11-09-2022 Urea nitrogen [Mass/Vol] 6 mg/dL 7-25 [facility] Urine clarity by refractomet ry automatedOrdered By: Diomedes Posadas on 11-09-2022 Clarity Refractometry automated (U) Clear Clear [facility] Urine glucose measurement by automated test strip (mass/volume)Ordered By: Diomedes Posadas on 11-09-2022 Glucose Auto test strip (U) [Mass/Vol] Normal mg/dL Normal [facility] Urine hemoglobin detection b y automated test stripOrdered By: Diomedes Posadas on 11-09-2022 Hemoglobin Auto test strip Ql (U) Negative Negative [facility] Urine leukocyte esterase det ection by automated test stripOrdered By: Diomedes Posadas on 11-09-2022 Leukocyte esterase Auto test strip Ql (U) Negative Negative [facility] Urobilinogen Auto test strip (U) [Mass/Vol]Ordered By: Diomedes Posadas on 11-09-2022 Urobilinogen (U) [Mass/Vol] Normal mg/dL Normal [facility] WBC Auto (Bld) [#/Vol]Ordere d By: Diomedes Posadas on 09-03-2023 WBC (Bld) [#/Vol] 9.3 10*3/uL 3.8-11.6 [facility] pH Auto test strip (U)Ordere d By: Diomedes Posadas on 11-09-2022 pH (U) 5.5 [pH] 5.0-9.0 [facility] UPPER EUSon 08-12-2022 [facility] Gastroenterology Patient Name: Chioma Rainey Procedure Date: 08/12/2022 11:09 AM Date of : 1970 Admit Type: Outpatient Age: 52 Room: EUS Proc Room 01 Gender: Female Note Status: Finalized Attending MD: Sabrina Dee MD, MPH, [id number] Procedure: Upper EUS Indications: Chronic pancreatitis, Epigastric abdominal pain, Celiac plexus block for pain secondary to chronic pancreatitis, Dysphagia, Follow-up of esophageal stenosis, For therapy of esophageal stenosis Providers: Sabrina Dee MD, MPH (Doctor), Kolby Gifford RN (Nurse), Elba Faustin (Nurse), Mary Gaviria Clinical Audiologist (Clinical Audiologist) Referring MD: Alexander Nichols MD (Referring MD) [...] by the physician, the nurse and the change person in the procedure room. Mental Status Examination: [...] abnor (more content not included)... LAB, [facility] Radiology Study observation (narrative) [facility] AMYLASEon 06-13-2022 Amylase [Catalytic activity/Vol] 92 U/L Normal 25-115 [facility] Comment on above: Performed By: #### L IPA, CMP, CRP, NAT #### [facility] [address] [address] [address] Keturah Fisher CBC AUTO DIFFon 06-13-2022 BASO # 0.1 103/ul Normal 0.0-0.1 [facility] Comment on above: Performed By: #### L IPA, CMP, CRP, NAT #### [facility] [address] [address] [address] Keturah Fisher Basophils/100 WBC (Bld) 0.7 % Normal 0.2-2.0 [facility] Comment on above: Performed By: #### L IPA, CMP, CRP, NAT #### [facility] [address] [place] [address] Dr. Keturah Fisher EO # 0.1 103/ul Normal 0.0-0.7 [facility] Comment on above: Performed By: #### L IPA, CMP, CRP, NAT #### [facility] [address] [place] [address] Dr. Keturah Fisher Eosinophils/100 WBC (Bld) 1.1 % Normal 0.9-7.0 [facility] Comment on above: Performed By: #### L IPA, CMP, CRP, NAT #### [facility] [address] [place] [address] Dr. Keturah Fisher Erythrocyte distribution width (RBC) [Ratio] 13.0 % Normal 11.0-15.0 [facility] Comment on above: Performed By: #### L IPA, CMP, CRP, NAT #### [facility] [address] [place] [address] Dr. Keturah Fisher Hematocrit (Bld) [Volume fraction] 40.5 % Normal 36.0-48.0 [facility] Comment on above: Performed By: #### L IPA, CMP, CRP, NAT #### [facility] [address] [place] [address] Dr. Keturah Fisher Hemoglobin (Bld) [Mass/Vol] 13.9 g/dL Normal 12.0-16.0 [facility] Comment on above: Performed By: #### L IPA, CMP, CRP, NAT #### [facility] [address] [place] [address] Dr. Keturah Fisher IG # 0.03 10e3/ul Normal 0.00-0.03 [facility] Comment on above: Performed By: #### L IPA, CMP, CRP, NAT #### [facility] [address] [place] [address] Dr. Keturah Fisher IG % 0.3 % Normal 0.0-0.5 [facility] Comment on above: Performed By: #### L IPA, CMP, CRP, NAT #### [facility] [address] [address] [address] Keturah Fisher LYMPH # 2.9 103/ul Normal 1.2-3.8 [facility] Comment on above: Performed By: #### L IPA, CMP, CRP, NAT #### [facility] [address] [address] [address] Keturah Fisher Lymphocytes/100 WBC (Bld) 25.0 % Normal 20.5-60.0 [facility] Comment on above: Performed By: #### L IPA, CMP, CRP, NAT #### [facility] [address] [place] [address] Dr. Keturah Fisher MANUAL DIFF REQ NO Normal [facility] Comment on above: Performed By: #### L IPA, CMP, CRP, NAT #### [facility] [facility] [address] [place] [address] Dr. Keturah Fisher MCH (RBC) [Entitic mass] 33.3 pg Normal 26.7-34.0 [facility] Comment on above: Performed By: #### L IPA, CMP, CRP, NAT #### [facility] [address] [place] [address] Dr. Keturah Fisher MCHC (RBC) [Mass/Vol] 34.3 g/dL Normal 29.9-35.2 [facility] Comment on above: Performed By: #### L IPA, CMP, CRP, ANT #### [facility] [address] [place] [address] Dr. Keturah Fisher MCV (RBC) [Entitic vol] 96.9 fL Normal 81.0-99.0 [facility] Comment on above: Performed By: #### L IPA, CMP, CRP, NAT #### [facility] [address] [place] [address] Dr. Keturah Fisher MONO # 0.7 103/ul Normal 0.3-0.8 [facility] Comment on above: Performed By: #### L IPA, CMP, CRP, NAT #### [facility] [address] [place] [address] Dr. Keturah Fisher Monocytes/100 WBC (Bld) 5.6 % Normal 1.7-12.0 [facility] Comment on above: Performed By: #### L IPA, CMP, CRP, NAT #### [facility] [address] [place] [address] Dr. Keturah Fisher NEUT # 7.8 103/ul Critically high 1.4-6.5 [facility] Comment on above: Performed By: #### L IPA, CMP, CRP, NAT #### [facility] [address] [place] [address] Dr. Keturah Fisher Neutrophils/100 WBC (Bld) 67.3 % Normal 43.0-75.0 [facility] Comment on above: Performed By: #### L IPA, CMP, CRP, NAT #### [facility] [address] [place] [address] Dr. Keturah Fisher Platelet mean volume (Bld) [Entitic vol] 9.5 fL Normal 9.5-13.5 [facility] Comment on above: Performed By: #### L IPA, CMP, CRP, NAT #### [facility] [address] [place] [address] Dr. Keturah Fisher PLT 227 103/ul Normal 150-450 [facility] Comment on above: Performed By: #### L IPA, CMP, CRP, NAT #### [facility] [address] [place] [address] Dr. Keturah Fisher RBC 4.18 106/ul Critically low 4.20-5.40 [facility] Comment on above: Performed By: #### L IPA, CMP, CRP, NAT #### [facility] [address] [place] [address] Dr. Keturah Fisher WBC 11.5 103/ul Critically high 4.0-11.0 [facility] Comment on above: Performed By: #### L IPA, CMP, CRP, NAT #### [facility] [address] [place] [address] Dr. Keturah Fisher LIPASEon 06-13-2022 Lipase [Catalytic activity/Vol] 168.0 U/L Normal 73.0-393.0 [facility] Comment on above: Performed By: #### L IPA, CMP, CRP, NAT #### [facility] [address] [place] [address] Dr. Keturah Fisher PROF 14(COMP METB)on 023 Albumin [Mass/Vol] 3.6 g/dL Normal 3.4-5.0 [facility] Comment on above: Performed By: #### L IPA, CMP, CRP, NAT #### [facility] [address] [place] [address] Dr. Keturah Fisher Albumin/Globulin [Mass ratio] 1.1 {ratio} Normal [facility] Comment on above: Performed By: #### L IPA, CMP, CRP, NAT #### [facility] [address] [place] [address] Dr. Keturah Fisher ALP [Catalytic activity/Vol] 132 U/L Critically high 46-116 [facility] Comment on above: Performed By: #### L IPA, CMP, CRP, NAT #### [facility] [address] [place] [address] Dr. Keturah Fisher ALT [Catalytic activity/Vol] 20 U/L Normal 14-59 [facility] Comment on above: Performed By: #### L IPA, CMP, CRP, NAT #### [facility] [address] [place] [address] Dr. Keturah Fisher Anion gap [Moles/Vol] 13.7 mmol/L Normal [facility] Comment on above: Performed By: #### L IPA, CMP, CRP, NAT #### [facility] [address] [place] [address] Dr. Keturah Fisher AST [Catalytic activity/Vol] 19 U/L Normal 15-37 [facility] Comment on above: Performed By: #### L IPA, CMP, CRP, NAT #### [facility] [address] [place] [address] Dr. Keturah Fisher Bilirubin [Mass/Vol] 0.1 mg/dL Critically low 0.2-1.0 [facility] Comment on above: Performed By: #### L IPA, CMP, CRP, NAT #### [facility] [address] [address] [address] Keturah Fisher Calcium [Mass/Vol] 10.1 mg/dL Normal 8.5-10.1 [facility] Comment on above: Performed By: #### L IPA, CMP, CRP, NAT #### [facility] [address] [place] [address] Dr. Keturah Fisher Chloride [Moles/Vol] 104 mmol/L Normal 98-107 [facility] Comment on above: Performed By: #### L IPA, CMP, CRP, NAT #### [facility] [address] [place] [address] Dr. Keturah Fisher CO2 [Moles/Vol] 26.7 mmol/L Normal 21.0-32.0 [facility] Comment on above: Performed By: #### L IPA, CMP, CRP, NAT #### [facility] [address] [place] [address] Dr. Keturah Fisher Creatinine [Mass/Vol] 0.83 mg/dL Normal 0.55-1.02 [facility] Comment on above: Performed By: #### L IPA, CMP, CRP, NAT #### [facility] [address] [place] [address] Dr. Keturah Fisher EGFR-AF DOMINICAN >60 Normal >=60 [facility] Comment on above: Performed By: #### L IPA, CMP, CRP, NAT #### [facility] [address] [place] [address] Dr. Keturah Fisher EGFR-NON AF DOMINICAN >60 Normal >=60 [facility] Comment on above: Performed By: #### L IPA, CMP, CRP, NAT #### [facility] [address] [place] [address] Dr. Keturah Fisher Globulin (S) [Mass/Vol] 3.4 g/dL Normal [facility] Comment on above: Performed By: #### L IPA, CMP, CRP, NAT #### [facility] [address] [place] [address] Dr. Keturah Fisher Glucose [Mass/Vol] 115 mg/dL Critically high 74-106 [facility] Comment on above: Performed By: #### L IPA, CMP, CRP, NAT #### [facility] [address] [address] [address] Keturah Fisher Potassium [Moles/Vol] 3.4 mmol/L Critically low 3.5-5.1 [facility] Comment on above: Performed By: #### L IPA, CMP, CRP, NAT #### [facility] [address] [address] [address] Keturah Fisher Protein [Mass/Vol] 7.0 g/dL Normal 6.4-8.2 [facility] Comment on above: Performed By: #### L IPA, CMP, CRP, NAT #### [facility] [address] [place] [address] Dr. Keturah Fisher Sodium [Moles/Vol] 141 mmol/L Normal 136-145 [facility] Comment on above: Performed By: #### L IPA, CMP, CRP, NAT #### [facility] [address] [place] [address] Dr. Keturah Fisher Urea nitrogen [Mass/Vol] 9.0 mg/dL Normal 7.0-18.0 [facility] Comment on above: Performed By: #### L IPA, CMP, CRP, NAT #### [facility] [address] [place] [address] Dr. Keturah Fisher Urea nitrogen/Creatinine [Mass ratio] 10.8 mg/mg Normal [facility] Comment on above: Performed By: #### L IPA, CMP, CRP, NAT #### [facility] [address] [place] [address] Dr. Keturah Fisher XR ABD FLAT UP_PA [...] ION KRUSE Date: 2022-06-13 17:10 Normal [facility] AMYLASEon 03-29-2022 Amylase [Catalytic activity/Vol] 141 U/L Critically high 25-115 [facility] Comment on above: Performed By: #### L IVER, LIPA, BMP, NAT ####[facility] [address] [address]Dr. Keturah Fisher CBC AUTO DIFFon 03-29-2022 BASO # 0.1 103/ul Normal 0.0-0.1 [facility] Comment on above: Performed By: #### L IPA, CMP, CRP, NAT #### [facility] [address] [address] [address] Keturah Fisher Basophils/100 WBC (Bld) 0.6 % Normal 0.2-2.0 [facility] Comment on above: Performed By: #### L IPA, CMP, CRP, NAT #### [facility] [address] [address] [address] Keturah Fisher EO # 0.1 103/ul Normal 0.0-0.7 [facility] Comment on above: Performed By: #### L IPA, CMP, CRP, NAT #### [facility] [address] [address] [address] Keturah Fisher Eosinophils/100 WBC (Bld) 0.7 % Critically low 0.9-7.0 [facility] Comment on above: Performed By: #### L IPA, CMP, CRP, NAT #### [facility] [address] [address] [address] Keturah Fisher Erythrocyte distribution width (RBC) [Ratio] 12.9 % Normal 11.0-15.0 [facility] Comment on above: Performed By: #### L IPA, CMP, CRP, NAT #### [facility] [address] [address] [address] Keturah Fisher Hematocrit (Bld) [Volume fraction] 39.7 % Normal 36.0-48.0 [facility] Comment on above: Performed By: #### L IPA, CMP, CRP, NAT #### [facility] [address] [place] [address] Dr. Keturah Fisher Hemoglobin (Bld) [Mass/Vol] 14.7 g/dL Normal 12.0-16.0 [facility] Comment on above: Performed By: #### L IPA, CMP, CRP, NAT #### [facility] [address] [place] [address] Dr. Keturah Fisher IG # 0.04 10e3/ul Critically high 0.00-0.03 [facility] Comment on above: Performed By: #### L IPA, CMP, CRP, NAT #### [facility] [address] [place] [address] Dr. Keturah Fisher IG % 0.4 % Normal 0.0-0.5 [facility] Comment on above: Performed By: #### L IPA, CMP, CRP, NAT #### [facility] [address] [place] [address] Dr. Keturah Fisher LYMPH # 2.1 103/ul Normal 1.2-3.8 [facility] Comment on above: Performed By: #### L IPA, CMP, CRP, NAT #### [facility] [address] [place] [address] Dr. Keturah Fisher Lymphocytes/100 WBC (Bld) 21.2 % Normal 20.5-60.0 [facility] Comment on above: Performed By: #### L IPA, CMP, CRP, NAT #### [facility] [address] [place] [address] Dr. Keturah Fisher MANUAL DIFF REQ NO Normal [facility] Comment on above: Performed By: #### L IPA, CMP, CRP, NAT #### [facility] [address] [place] [address] Dr. Keturah Fisher MCH (RBC) [Entitic mass] 33.0 pg Normal 26.7-34.0 [facility] Comment on above: Performed By: #### L IPA, CMP, CRP, NAT #### [facility] [address] [place] [address] Dr. Keturah Fisher MCHC (RBC) [Mass/Vol] 37.0 g/dL Critically high 29.9-35.2 [facility] Comment on above: Performed By: #### L IPA, CMP, CRP, NAT #### [facility] [address] [place] [address] Dr. Keturah Fisher MCV (RBC) [Entitic vol] 89.0 fL Normal 81.0-99.0 [facility] Comment on above: Performed By: #### L IPA, CMP, CRP, NAT #### [facility] [address] [place] [address] Dr. Keturah Fisher MONO # 1.0 103/ul Critically high 0.3-0.8 [facility] Comment on above: Performed By: #### L IPA, CMP, CRP, NAT #### [facility] [address] [place] [address] Dr. Keturah Fisher Monocytes/100 WBC (Bld) 10.3 % Normal 1.7-12.0 [facility] Comment on above: Performed By: #### L IPA, CMP, CRP, NAT #### [facility] [address] [place] [address] Dr. Keturah Fisher NEUT # 6.5 103/ul Normal 1.4-6.5 [facility] Comment on above: Performed By: #### L IPA, CMP, CRP, NAT #### [facility] [address] [place] [address] Dr. Keturah Fisher Neutrophils/100 WBC (Bld) 66.8 % Normal 43.0-75.0 [facility] Comment on above: Performed By: #### L IPA, CMP, CRP, NAT #### [facility] [address] [place] [address] Dr. Keturah Fisher Platelet mean volume (Bld) [Entitic vol] 9.2 fL Critically low 9.5-13.5 [facility] Comment on above: Performed By: #### L IPA, CMP, CRP, NAT #### [facility] [address] [place] [address] Dr. Keturah Fisher PLT 229 103/ul Normal 150-450 [facility] Comment on above: Performed By: #### L IPA, CMP, CRP, NAT #### [facility] [address] [address] [address] Keturah Fisher RBC 4.46 106/ul Normal 4.20-5.40 [facility] Comment on above: Performed By: #### L IPA, CMP, CRP, NAT #### [facility] [address] [address] [address] Keturah Fisher WBC 9.7 103/ul Normal 4.0-11.0 [facility] Comment on above: Performed By: #### L IPA, CMP, CRP, NAT #### [facility] [address] [address] [address] Keturah Fisher LACTATE/LACTIC ACIDon 2022 Lactate [Moles/Vol] 0.5 mmol/L Normal 0.4-1.9 [facility] Comment on above: Performed By: #### L IPA, CMP, CRP, NAT #### [facility] [address] [address] [address] Keturah Fisher LIPASEon 03-29-2022 Lipase [Catalytic activity/Vol] 308.0 U/L Normal 73.0-393.0 [facility] Comment on above: Performed By: #### L IVER, LIPA, BMP, NAT ####[facility] [address] [address]Dr. Keturah Fisher LIVER PROFILEon 03-29-2022 Albumin [Mass/Vol] 3.3 g/dL Critically low 3.4-5.0 [facility] Comment on above: Performed By: #### L IVER, LIPA, BMP, NAT ####[facility] [address] [id number]. Keturah Fisher Albumin/Globulin [Mass ratio] 0.8 {ratio} Normal [facility] Comment on above: Performed By: #### L IVER, LIPA, BMP, NAT ####[facility] [address] [id number]. Keturah Fisher ALP [Catalytic activity/Vol] 182 U/L Critically high 46-116 [facility] Comment on above: Performed By: #### L IVER, LIPA, BMP, NAT ####[facility] [address] [address]Dr. Keturah Fisher ALT [Catalytic activity/Vol] 16 U/L Normal 14-59 [facility] Comment on above: Performed By: #### L IVER, LIPA, BMP, NAT ####[facility] [address] [address]Dr. Keturah Fisher AST [Catalytic activity/Vol] 26 U/L Normal 15-37 [facility] Comment on above: Performed By: #### L IVER, LIPA, BMP, NAT ####[facility] [address] [place], [place] [address]Dr. Keturah Fisher BILI, CONJUGATED 0.0 mg/dL Normal 0.0-0.2 [facility] Comment on above: Performed By: #### L IVER, LIPA, BMP, NAT ####[facility] [address] [place], [place] [address]Dr. Keturah Fisher Bilirubin [Mass/Vol] 0.3 mg/dL Normal 0.2-1.0 [facility] Comment on above: Performed By: #### L IVER, LIPA, BMP, NAT ####[facility] [address] [place], [place] [address]Dr. Keturah Fisher Globulin (S) [Mass/Vol] 3.9 g/dL Normal [facility] Comment on above: Performed By: #### L IVER, LIPA, BMP, NAT ####[facility] [address] [place], [place] [address]Dr. Keturah Fisher Protein [Mass/Vol] 7.2 g/dL Normal 6.4-8.2 [facility] Comment on above: Performed By: #### L IVER, LIPA, BMP, NAT ####[facility] [address] [place], [place] [address]Dr. Keturah Fisher PROF CHEM 8 (BAS METB)on Anion gap [Moles/Vol] 14.6 mmol/L Normal [facility] Comment on above: Performed By: #### L IVER, LIPA, BMP, NAT ####[facility] [address] [address]Dr. Keturah Fisher Calcium [Mass/Vol] 10.1 mg/dL Normal 8.5-10.1 [facility] Comment on above: Performed By: #### L IVER, LIPA, BMP, NAT ####[facility] [address] [address]Dr. Keturah Fisher Chloride [Moles/Vol] 104 mmol/L Normal 98-107 [facility] Comment on above: Performed By: #### L IVER, LIPA, BMP, NAT ####[facility] [address] [place], [place] [address]Dr. Keturah Fisher CO2 [Moles/Vol] 24.8 mmol/L Normal 21.0-32.0 [facility] Comment on above: Performed By: #### L IVER, LIPA, BMP, NAT ####[facility] [address] [address]Dr. Keturah Fisher Creatinine [Mass/Vol] 0.61 mg/dL Normal 0.55-1.02 [facility] Comment on above: Performed By: #### L IVER, LIPA, BMP, NAT ####[facility] [address] [address]Dr. Keturah Fisher EGFR-AF DOMINICAN >60 Normal >=60 [facility] Comment on above: Performed By: #### L IVER, LIPA, BMP, NAT ####[facility] [address] [address]Dr. Keturah Fisher EGFR-NON AF DOMINICAN >60 Normal >=60 [facility] Comment on above: Performed By: #### L IVER, LIPA, BMP, ANT ####[facility] [address] [address]Dr. Keturah Fisher Glucose [Mass/Vol] 98 mg/dL Normal 74-106 [facility] Comment on above: Performed By: #### L IVER, LIPA, BMP, NAT ####[facility] [address] [place], [place] [address]Dc. Keturah Fisher Potassium [Moles/Vol] 4.4 mmol/L Normal 3.5-5.1 [facility] Comment on above: Performed By: #### L IVER, LIPA, BMP, NAT ####[facility] [address] [place], [place] [address]Ja. Keturah Fisher Sodium [Moles/Vol] 139 mmol/L Normal 136-145 [facility] Comment on above: Performed By: #### L IVER, LIPA, BMP, NAT ####[facility] [address] [id number]. Keturah Fisher Urea nitrogen [Mass/Vol] 7.0 mg/dL Normal 7.0-18.0 [facility] Comment on above: Performed By: #### L IVER, LIPA, BMP, NAT ####[facility] [address] [address]Dr. Keturah Fisher Urea nitrogen/Creatinine [Mass ratio] 11.5 mg/mg Normal [facility] Comment on above: Performed By: #### L IVER, LIPA, BMP, NAT ####[facility] [address] [address]Dr. Keturah Fisher Albumin [Mass/volume] in Ser um or PlasmaOrdered By: Agustin Llanes on 03-22-2022 Albumin [Mass/Vol] 4.1 g/dL 3.2-5.5 [facility] Automated erythrocytes count in urine sediment (number/area)Ordered By: Agustin Llanes on 03-22-2022 RBC Auto (Urine sed) [#/Area] 3-4 [HPF] 0-4 [facility] Automated leukocytes count i n urine sediment (number/area)Ordered By: Agustin Llanes on 03-22-2022 WBC Auto (Urine sed) [#/Area] 10-19 [HPF] 0-4 [facility] Basophils Auto (Bld) [#/Vol] Ordered By: Agustin Llanes on 03-22-2022 Basophils (Bld) [#/Vol] 0.1 10*3/uL 0.0-0.2 [facility] Basophils/100 WBC Auto (Bld) Ordered By: Agustin Llanes on 03-22-2022 Basophils/100 WBC (Bld) 0.9 % . [facility] Bilirubin Test strip Ql (U)O rdered By: Agustin Llanes on 03-22-2022 Bilirubin Ql (U) Negative Negative [facility] Color Auto (U)Ordered By: Vita Llanes on 03-22-2022 Color (U) Yellow Yellow [facility] Creatinine and Glomerular fi ltration rate.predicted panel (S/P/Bld)Ordered By: Agustin Llanes on 03-22-2022 Creatinine [Mass/Vol] 0.74 mg/dL 0.44-1.03 [facility] Direct bilirubin measurement Ordered By: Agustin Llanes on 03-22-2022 Bilirubin.direct [Mass/Vol] 0.3 mg/dL 0.0-0.4 [facility] Eosinophils Auto (Bld) [#/Vo l]Ordered By: Agustin Llanes on 03-22-2022 Eosinophils (Bld) [#/Vol] 0.1 10*3/uL 0.0-0.45 [facility] Eosinophils/100 WBC Auto (Bl d)Ordered By: Agustin Llanes on 03-22-2022 Eosinophils/100 WBC (Bld) 0.7 % . [facility] Erythrocyte distribution wid th Auto (RBC) [Ratio]Ordered By: Agustin Llanes on 03-22-2022 Erythrocyte distribution width (RBC) [Ratio] 13.9 % 11.9-15.3 [facility] Estimated glomerular filtrat ion rate (GFR) non- AmericanOrdered By: Agustin Llanes on 03-22-2022 GFR/1.73 sq M.predicted among non-blacks MDRD (S/P/Bld) [Vol rate/Area] > 60 mL/Min [facility] Globulin Calc (S) [Mass/Vol] Ordered By: Agustin Llanes on 03-22-2022 Globulin (S) [Mass/Vol] 3.1 g/dL [facility] HCG ( test) IA.rapi d Ql (U)Ordered By: Agustin Llanes on 03-22-2022 HCG ( test) Ql (U) Negative [facility] Hematocrit Auto (Bld) [Volum e fraction]Ordered By: Agustin Llanes on 03-22-2022 Hematocrit (Bld) [Volume fraction] 45.7 % 34.0-46.4 [facility] Hemoglobin [Mass/volume] in BloodOrdered By: Agustin Llanes on 03-22-2022 Hemoglobin (Bld) [Mass/Vol] 15.2 g/dL 11.8-15.4 [facility] Ketones Auto test strip (U) [Mass/Vol]Ordered By: Agustin Llanes on 03-22-2022 Ketones (U) [Mass/Vol] Negative Negative Fi [facility] - Chemistry and C hemistry - challengeOrdered By: Agustin Llanes on 03-22-2022 Lipase [Catalytic activity/Vol] 122.0 U/L 22-51 [facility] Laboratory - UrinalysisOrder ed By: Agustin Llanes on 03-22-2022 Hyaline casts LM Ql (Urine sed) 0-8 [LPF] 0-8 [facility] Leukocytes [#/volume] correc aurelia for nucleated erythrocytes in Blood by Automated counOrdered By: Agustin Llanes on 03-22-2022 WBC corrected for nucl RBC Auto (Bld) [#/Vol] 12.4 10*3/uL 3.8-11.6 [facility] Lymphocytes Auto (Bld) [#/Vo l]Ordered By: Agustin Llanes on 03-22-2022 Lymphocytes (Bld) [#/Vol] 2.2 10*3/uL 1.00-4.8 [facility] Lymphocytes/100 WBC Auto (Bl d)Ordered By: Agustin Llanes on 03-22-2022 Lymphocytes/100 WBC (Bld) 18.0 % . [facility] MCH Auto (RBC) [Entitic mass ]Ordered By: Agustin Llanes on 03-22-2022 MCH (RBC) [Entitic mass] 32.5 pg 24.7-34.3 [facility] MCHC Auto (RBC) [Mass/Vol]Or dered By: Agustin Llanes on 03-22-2022 MCHC (RBC) [Mass/Vol] 33.2 g/dL 32.0-35.0 [facility] MCV Auto (RBC) [Entitic vol] Ordered By: Agustin Llanes on 03-22-2022 MCV (RBC) [Entitic vol] 98.0 fL 80-100 [facility] Monocyte distribution width [Entitic volume] in Blood by AutomatedOrdered By: Agustin Llanes on 03-22-2022 Monocyte distribution width Auto (Bld) [Entitic vol] 18.78 % 0.00-20.00 [facility] Monocytes Auto (Bld) [#/Vol] Ordered By: Agustin Llanes on 03-22-2022 Monocytes (Bld) [#/Vol] 1.0 10*3/uL 0.0-0.8 [facility] Monocytes/100 WBC Auto (Bld) Ordered By: Agustin Llanes on 03-22-2022 Monocytes/100 WBC (Bld) 8.0 % . [facility] Neutrophils Auto (Bld) [#/Vo l]Ordered By: Agustin Llanes on 03-22-2022 Neutrophils (Bld) [#/Vol] 9.0 10*3/uL 1.8-7.7 [facility] Neutrophils/100 WBC Auto (Bl d)Ordered By: Agustin Llanes on 03-22-2022 Neutrophils/100 WBC (Bld) 72.4 % . [facility] Nitrite Test strip Ql (U)Ord ered By: Agustin Llanes on 03-22-2022 Nitrite Ql (U) Positive Negative [facility] No Panel InformationOrdered By: Agustin Llanes on 03-22-2022 Estimated GFR () > 60 mL/Min [facility] Comment on above: GFR estimated refere nce range: According to KDOQI guidelines, <60 ml/min/1.73m2 is sufficient to diagnose a patient with chronic kidney disease. Pharmacy Creatinine Clearance (Chem 70.34 [facility] Nucleated erythrocytes [Pres ence] in Blood by Automated countOrdered By: Agustin Llanes on 03-22-2022 Nucleated RBC Auto Ql (Bld) 0.0 /100{WBC} 0-0.5 [facility] Platelet mean volume Auto (B ld) [Entitic vol]Ordered By: Agustin Llanes on 03-22-2022 Platelet mean volume (Bld) [Entitic vol] 8.0 fL 6.3-10.7 [facility] Platelets Auto (Bld) [#/Vol] Ordered By: Agustin Llanes on 03-22-2022 Platelets (Bld) [#/Vol] 266 10*3/uL 150-450 [facility] Protein Auto test strip (U) [Mass/Vol]Ordered By: Agustin Llanes on 03-22-2022 Protein (U) [Mass/Vol] Negative Negative [facility] Protein [Mass/volume] in Ser um or PlasmaOrdered By: Agustin Llanes on 03-22-2022 Protein [Mass/Vol] 7.2 g/dL 6.1-7.9 [facility] RBC Auto (Bld) [#/Vol]Ordere d By: Agustin Llanes on 03-22-2022 RBC (Bld) [#/Vol] 4.67 10*6/uL 3.60-5.00 [facility] Serum or plasma alanine hughes otransferase measurement without P-5'-P (enzymatic activiOrdered By: Agustin Llanes on 03-22-2022 ALT No additional P-5'-P [Catalytic activity/Vol] 19 U/L 10-60 [facility] Serum or plasma albumin/glob ulin mass ratioOrdered By: Agustin Llanes on 03-22-2022 Albumin/Globulin [Mass ratio] 1.3 {ratio} [facility] Serum or plasma alkaline jaqueline sphatase measurement (enzymatic activity/volume)Ordered By: Agustin Llanes on 03-22-2022 ALP [Catalytic activity/Vol] 156 U/L 32-92 [facility] Serum or plasma anion gap de terminationOrdered By: Agustin Llanes on 03-22-2022 Anion gap [Moles/Vol] 12.6 mmol/L 6.0-15.0 [facility] Serum or plasma aspartate am inotransferase measurement (enzymatic activity/volume)Ordered By: Agustin Llanes on 03-22-2022 AST [Catalytic activity/Vol] 29 U/L 10-42 [facility] Serum or plasma calcium priscilla urement (mass/volume)Ordered By: Agustin Llanes on 03-22-2022 Calcium [Mass/Vol] 9.9 mg/dL 8.2-10.2 [facility] Serum or plasma chloride daron surement (moles/volume)Ordered By: Agustin Llanes on 03-22-2022 Chloride [Moles/Vol] 103 mmol/L 95-114 [facility] Serum or plasma glucose priscilla urement (mass/volume)Ordered By: Agustin Llanes on 03-22-2022 Glucose [Mass/Vol] 106 mg/dL 70-100 [facility] Comment on above: ADA recommended refe rence rangeRandom Glucose Reference Range is dependent on time and content of last meal. Glucose of more than 200 mg/dL in a nonstressed, ambulatory subject supports the diagnosis of Diabetes Mellitus. Serum or plasma non-glucuron idated bilirubin measurement (mass/volume)Ordered By: Agustin Llanes on 03-22-2022 Bilirubin.indirect [Mass/Vol] 0.2 mg/dL [facility] Serum or plasma potassium me asurement (moles/volume)Ordered By: Agustin Llanes on 03-22-2022 Potassium [Moles/Vol] 4.5 mmol/L 3.5-5.1 [facility] Serum or plasma sodium measu rement (moles/volume)Ordered By: Agustin Llanes on 03-22-2022 Sodium [Moles/Vol] 138 mmol/L 136-146 [facility] Serum or plasma total biliru bin measurement (mass/volume)Ordered By: Agustin Llanes on 03-22-2022 Bilirubin [Mass/Vol] 0.5 mg/dL 0.3-1.2 [facility] Serum or plasma total carbon dioxide measurement (moles/volume)Ordered By: Agustin Llanes on 03-22-2022 CO2 [Moles/Vol] 26.9 mmol/L 22.0-30.0 [facility] Serum or plasma urea nitroge n measurement (mass/volume)Ordered By: Agustin Llanes on 03-22-2022 Urea nitrogen [Mass/Vol] 8 mg/dL 9-23 [facility] Specific gravity Auto test s trip (U) [Rel density]Ordered By: Agustin Llanes on 03-22-2022 Specific gravity (U) [Rel density] 1.011 1.001-1.03 0 [facility] Squamous epithelial cells de tection in urine sediment by light microscopyOrdered By: Agustin Llanes on 03-22-2022 Epithelial cells.squamous LM Ql (Urine sed) 1-2 [HPF] 0-2 [facility] Urine bacteria detection by automated methodOrdered By: Agustin Llanes on 03-22-2022 Bacteria Auto Ql (U) 1+ None Seen [facility] Urine clarity by refractomet ry automatedOrdered By: Agustin Llanes on 03-22-2022 Clarity Refractometry automated (U) Clear Clear [facility] Urine glucose measurement by automated test strip (mass/volume)Ordered By: Agustin Llanes on 03-22-2022 Glucose Auto test strip (U) [Mass/Vol] Normal mg/dL Normal [facility] Urine hemoglobin detection b y automated test stripOrdered By: Agustin Llanes on 03-22-2022 Hemoglobin Auto test strip Ql (U) Negative Negative [facility] Urine leukocyte esterase det ection by automated test stripOrdered By: Agustin Llanes on 03-22-2022 Leukocyte esterase Auto test strip Ql (U) 2+ Negative [facility] Urobilinogen Auto test strip (U) [Mass/Vol]Ordered By: Agustin Llanes on 03-22-2022 Urobilinogen (U) [Mass/Vol] Normal mg/dL Normal [facility] WBC Auto (Bld) [#/Vol]Ordere d By: Agustin Llanes on 03-22-2022 WBC (Bld) [#/Vol] 12.4 10*3/uL 3.8-11.6 [facility] pH Auto test strip (U)Ordere d By: Agustin Llanes on 03-22-2022 pH (U) 5.5 [pH] 5.0-9.0 [facility] AMYLASEon 03-19-2022 Amylase [Catalytic activity/Vol] 297 U/L Critically high 25-115 [facility] Comment on above: Performed By: #### L IPA, CMP, CRP, NAT #### [facility] [address], [place] [address] Dr. Keturah Fisher CBC AUTO DIFFon 03-19-2022 BASO # 0.1 103/ul Normal 0.0-0.1 [facility] Comment on above: Performed By: #### L IPA, CMP, CRP, NAT #### [facility] [address], [place] [address] Dr. Keturah Fisher Basophils/100 WBC (Bld) 0.6 % Normal 0.2-2.0 [facility] Comment on above: Performed By: #### L IPA, CMP, CRP, NAT #### [facility] [address] [place] [address] Dr. Keturah Fisher EO # 0.1 103/ul Normal 0.0-0.7 [facility] Comment on above: Performed By: #### L IPA, CMP, CRP, NAT #### [facility] [address] [place] [address] Dr. Keturah Fisher Eosinophils/100 WBC (Bld) 0.5 % Critically low 0.9-7.0 [facility] Comment on above: Performed By: #### L IPA, CMP, CRP, NAT #### [facility] [address] [place] [address] Dr. Keturah Fisher Erythrocyte distribution width (RBC) [Ratio] 13.4 % Normal 11.0-15.0 [facility] Comment on above: Performed By: #### L IPA, CMP, CRP, NAT #### [facility] [address] [place] [address] Dr. Keturah Fisher Hemoglobin (Bld) [Mass/Vol] 15.7 g/dL Normal 12.0-16.0 [facility] Comment on above: Performed By: #### L IPA, CMP, CRP, NAT #### [facility] [address] [place] [address] Dr. Keturah Fihser IG # 0.06 10e3/ul Critically high 0.00-0.03 [facility] Comment on above: Performed By: #### L IPA, CMP, CRP, NAT #### [facility] [address] [place] [address] Dr. Keturah Fisher IG % 0.4 % Normal 0.0-0.5 [facility] Comment on above: Performed By: #### L IPA, CMP, CRP, NAT #### [facility] [address] [place] [address] Dr. Keturah Fisher LYMPH # 2.6 103/ul Normal 1.2-3.8 [facility] Comment on above: Performed By: #### L IPA, CMP, CRP, NAT #### [facility] [address] [place] [address] Dr. Keturah Fisher Lymphocytes/100 WBC (Bld) 18.1 % Critically low 20.5-60.0 [facility] Comment on above: Performed By: #### L IPA, CMP, CRP, NAT #### [facility] [address] [place] [address] Dr. Keturah Fisher MANUAL DIFF REQ NO Normal [facility] Comment on above: Performed By: #### L IPA, CMP, CRP, NAT #### [facility] [address] [place] [address] Dr. Keturah Fisher MCH (RBC) [Entitic mass] 32.4 pg Normal 26.7-34.0 [facility] Comment on above: Performed By: #### L IPA, CMP, CRP, NAT #### [facility] [address] [place] [address] Dr. Keturah Fisher MCHC (RBC) [Mass/Vol] 32.5 g/dL Normal 29.9-35.2 [facility] Comment on above: Performed By: #### L IPA, CMP, CRP, NAT #### [facility] [address] [place] [address] Dr. Keturah Fisher MCV (RBC) [Entitic vol] 99.8 fL Critically high 81.0-99.0 [facility] Comment on above: Performed By: #### L IPA, CMP, CRP, NAT #### [facility] [address] [place] [address] Dr. Keturah Fisher MONO # 0.9 103/ul Critically high 0.3-0.8 [facility] Comment on above: Performed By: #### L IPA, CMP, CRP, NAT #### [facility] [address] [place] [address] Dr. Keturah Fisher Monocytes/100 WBC (Bld) 5.9 % Normal 1.7-12.0 [facility] Comment on above: Performed By: #### L IPA, CMP, CRP, NAT #### [facility] [address] [place] [address] Dr. Keturah Fisher NEUT # 10.8 103/ul Critically high 1.4-6.5 [facility] Comment on above: Performed By: #### L IPA, CMP, CRP, NAT #### [facility] [address] [place] [address] Dr. Keturah Fisher Neutrophils/100 WBC (Bld) 74.5 % Normal 43.0-75.0 [facility] Comment on above: Performed By: #### L IPA, CMP, CRP, NAT #### [facility] [address] [place] [address] Dr. Keturah Fisher Platelet mean volume (Bld) [Entitic vol] 9.7 fL Normal 9.5-13.5 [facility] Comment on above: Performed By: #### L IPA, CMP, CRP, NAT #### [facility] [address] [place] [address] Dr. Keturah Fisher PLT 279 103/ul Normal 150-450 [facility] Comment on above: Performed By: #### L IPA, CMP, CRP, NAT #### [facility] [address] [place] [address] Dr. Keturah Fisher RBC 4.84 106/ul Normal 4.20-5.40 [facility] Comment on above: Performed By: #### L IPA, CMP, CRP, NAT #### [facility] [address] [place] [address] Dr. Keturah Fisher WBC 14.5 103/ul Critically high 4.0-11.0 [facility] Comment on above: Performed By: #### L IPA, CMP, CRP, NAT #### [facility] [address] [place] [address] ABD/PELVIS WO CONon [...] AGUSTIN HIGHTOWER Date: 2022-03-19 19:10 Normal [facility] LIPASEon 03-19-2022 Lipase [Catalytic activity/Vol] 1573.0 U/L Critically high 73.0-393.0 [facility] Comment on above: Performed By: #### L IPA, CMP, CRP, NAT #### [facility] [address] [place] [address] Dr. Keturah Fisher PROF 14(COMP METB)on 023 Albumin [Mass/Vol] 4.3 g/dL Normal 3.4-5.0 [facility] Comment on above: Performed By: #### L IPA, CMP, CRP, NAT #### [facility] [address] [place] [address] [address] Keturah Fisher Albumin/Globulin [Mass ratio] 1.1 {ratio} Normal [facility] Comment on above: Performed By: #### L IPA, CMP, CRP, NAT #### [facility] [address] [place] [address] [address] Keturah Fisher ALP [Catalytic activity/Vol] 222 U/L Critically high 46-116 [facility] Comment on above: Performed By: #### L IPA, CMP, CRP, NAT #### [facility] [address] [place] [address] [address] Keturah Fisher ALT [Catalytic activity/Vol] 18 U/L Normal 14-59 [facility] Comment on above: Performed By: #### L IPA, CMP, CRP, NAT #### [facility] [address] [place] [address] Dr. Keturah Fisher Anion gap [Moles/Vol] 10.7 mmol/L Normal [facility] Comment on above: Performed By: #### L IPA, CMP, CRP, NAT #### [facility] [address] [place] [address] [address] Keturah Fisher AST [Catalytic activity/Vol] 19 U/L Normal 15-37 [facility] Comment on above: Performed By: #### L IPA, CMP, CRP, NAT #### [facility] [address] [address] [address] Keturah Fisher Bilirubin [Mass/Vol] 0.2 mg/dL Normal 0.2-1.0 [facility] Comment on above: Performed By: #### L IPA, CMP, CRP, NAT #### [facility] [address] [address] [address] Keturah Fisher Calcium [Mass/Vol] 10.2 mg/dL Critically high 8.5-10.1 [facility] Comment on above: Performed By: #### L IPA, CMP, CRP, NAT #### [facility] [address] [address] [address] Keturah Fisher Chloride [Moles/Vol] 101 mmol/L Normal 98-107 [facility] Comment on above: Performed By: #### L IPA, CMP, CRP, NAT #### [facility] [address] [address] [address] Keturah Fisher CO2 [Moles/Vol] 29.1 mmol/L Normal 21.0-32.0 [facility] Comment on above: Performed By: #### L IPA, CMP, CRP, NAT #### [facility] [address] [place] [address] Dr. Keturah Fisher Creatinine [Mass/Vol] 0.73 mg/dL Normal 0.55-1.02 [facility] Comment on above: Performed By: #### L IPA, CMP, CRP, NAT #### [facility] [address] [place] [address] Dr. Keturah Fisher EGFR-AF DOMINICAN >60 Normal >=60 [facility] Comment on above: Performed By: #### L IPA, CMP, CRP, NAT #### [facility] [address] [place] [address] Dr. Keturah Fisher EGFR-NON AF DOMINICAN >60 Normal >=60 [facility] Comment on above: Performed By: #### L IPA, CMP, CRP, NAT #### [facility] [address] [place] [address] Dr. Keturah Fisher Globulin (S) [Mass/Vol] 4.0 g/dL Normal [facility] Comment on above: Performed By: #### L IPA, CMP, CRP, NAT #### [facility] [address] [address] [address] Keturah Fisher Glucose [Mass/Vol] 92 mg/dL Normal 74-106 [facility] Comment on above: Performed By: #### L IPA, CMP, CRP, NAT #### [facility] [address] [place] [address] Dr. Keturah Fisher Potassium [Moles/Vol] 3.8 mmol/L Normal 3.5-5.1 [facility] Comment on above: Performed By: #### L IPA, CMP, CRP, NAT #### [facility] [address] [place], [place] [address] Dr. Keturah Fisher Protein [Mass/Vol] 8.3 g/dL Critically high 6.4-8.2 [facility] Comment on above: Performed By: #### L IPA, CMP, CRP, NAT #### [facility] [address] [address] [address] Keturah Fisher Sodium [Moles/Vol] 137 mmol/L Normal 136-145 [facility] Comment on above: Performed By: #### L IPA, CMP, CRP, NAT #### [facility] [address] [address] [address] Keturah Fisher Urea nitrogen [Mass/Vol] 10.0 mg/dL Normal 7.0-18.0 [facility] Comment on above: Performed By: #### L IPA, CMP, CRP, NAT #### [facility] [address] [place] [address] Dr. Keturah Fisher Urea nitrogen/Creatinine [Mass ratio] 13.7 mg/mg Normal [facility] Comment on above: Performed By: #### L IPA, CMP, CRP, NAT #### [facility] [address] [address] [address] Keturah Fisher PROTIMEon 03-19-2022 INR Coag (PPP) [Relative time] {INR} Normal [facility] Comment on above: Performed By: #### P TT, PT ####[facility] [id number] [place] [address]DrGopal Fisher INR GUIDELINES SEE BELOW Normal [facility] Comment on above: Result Comment: KARLY RED INR: 2.0 - 3.0 CONDITIONS NOT LISTED BELOW 2.5 - 3.5 FOR PROSTHETIC HEART VALVE REPLACEMENT 2.5 - 3.5 RECURRENT THROMBOSIS Performed By: #### P TT, PT ####[facility] [id number] [place] [address]Dr. Keturah Fisher PT Coag (PPP) [Time] 9.4 s Normal 9.0-11.6 [facility] Comment on above: Performed By: #### P TT, PT ####[facility] [id number] [address]DrGopal Fisher PTTon 03-19-2022 aPTT Coag (Bld) [Time] 26.1 s Normal 22.3-36.2 [facility] Comment on above: Performed By: #### P TT, PT ####[facility] [id number] [place], [place] [address]BgGopal Keturah Fisher TROPONIN, HIGH SENSITIVITYon 03-19-2022 HSTROP 4.0 pg/mL Normal 4.0-51.3 [facility] Comment on above: Result Comment: CUT- OFF POINTS HAVE BEEN ESTABLISHED BASED ON THE FOURTH UNIVERSAL DEFINITIONS OF MYOCARDIAL INFARCTION. THE UPPER REFERENCE LIMIT (URL) OF TROPONIN, DEFINED THE 99TH PERCENTILE OF cTnI DISTRIBUTION IN A REFERENCE POPULATION, HAS BEEN CONFIRMED THE DECISION THRESHOLD FOR MA DIAGNOSIS. Performed By: #### L IPA, CMP, CRP, NAT #### [facility] [address], [place] [address] Dr. 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 Refer to note in patient chart for documentation of history and physical. Referring MD: Alexander Nicohls MD (Referring MD) Medicines: Monitored Anesthesia Care [...] verified by the physician, the nurse, the change person and the communications technician in the procedure room. Mental Status [...] (more content not included)... LAB, [facility] Radiology Study observation (narrative) [facility] BONE DENSITY AXIAL (HIP, PEL VIS, [...] interpreted this study is a Certified Clinical Director Of Clinical Applications by the International Society of Clinical Densitometry Maulik Reed M.D., CCD. OLOGY EXAM: BONE DENSITY A XIAL (HIP, PELVIS, SPINE) 01/27/2022 15:34 PM TECHNIQUE: DXA scanning using a [employer] bone densitometer at the [facility] was performed on 01/27/2022 15:34 PM [...] 15:34 PM TECHNIQUE: DXA scanning using a [employer] bone densitometer at the [facility] was performed on 01/27/2022 15:34 PM [...] interpreted this study is a Certified Clinical Director Of Clinical Applications by the International Society of Clinical Densitometry Maulik Reed M.D., CCD. [facility] Radiology Study observation (narrative) [facility] BONE DENSITY AXIAL (HIP, PEL VIS, SPINE)Ordered By: Maulik Reed on 01-27-2022 [facility] Work Phone: CBC AUTO DIFFon 01-15-2022 BASO # 0.1 103/ul Normal 0.0-0.1 [facility] Comment on above: Performed By: #### C BC ####[facility] [id number] [place] [address]Dr. Keturah Fisher Basophils/100 WBC (Bld) 0.9 % Normal 0.2-2.0 [facility] Comment on above: Performed By: #### C BC ####[facility] [address] [place] [address]DrGopal Fisher EO # 0.2 103/ul Normal 0.0-0.7 [facility] Comment on above: Performed By: #### C BC ####[facility] [id number] [place] [address]Dr. Keturah Fisher Eosinophils/100 WBC (Bld) 2.8 % Normal 0.9-7.0 [facility] Comment on above: Performed By: #### C BC ####[facility] [id number] [place], [place] [address]DrGopal Fisher Erythrocyte distribution width (RBC) [Ratio] 12.9 % Normal 11.0-15.0 [facility] Comment on above: Performed By: #### C BC ####[facility] [address] [place], [place] [address]DrGopal Fisher Hematocrit (Bld) [Volume fraction] 41.7 % Normal 36.0-48.0 [facility] Comment on above: Performed By: #### C BC ####[facility] [address] [place] [address]Dr. Keturah Fisher Hemoglobin (Bld) [Mass/Vol] 14.0 g/dL Normal 12.0-16.0 [facility] Comment on above: Performed By: #### C BC ####[facility] [address] [place] [address]Dr. Keturah Fisher IG # 0.01 10e3/ul Normal 0.00-0.03 [facility] Comment on above: Performed By: #### C BC ####[facility] [address] [place] [address]Dr. Keturah Fisher IG % 0.1 % Normal 0.0-0.5 [facility] Comment on above: Performed By: #### C BC ####[facility] [address] [place], [place] [address]Dr. Keturah Phillip LYMPH # 2.4 103/ul Normal 1.2-3.8 [facility] Comment on above: Performed By: #### C BC ####[facility] Rx[address] [place], [place] [address]Dr. Keturah Phillip Lymphocytes/100 WBC (Bld) 32.0 % Normal 20.5-60.0 [facility] Comment on above: Performed By: #### C BC ####[facility] [address] [place] [address]Dr. Elisaeli Fisher MANUAL DIFF REQ NO Normal [facility] Comment on above: Performed By: #### C BC ####[facility] [address] [place] [address]Dr. Keturah Fisher MCH (RBC) [Entitic mass] 32.6 pg Normal 26.7-34.0 [facility] Comment on above: Performed By: #### C BC ####[facility] [address] [place] [address]Dr. Elisaeli Fisher MCHC (RBC) [Mass/Vol] 33.6 g/dL Normal 29.9-35.2 [facility] Comment on above: Performed By: #### C BC ####[facility] [address] [place] [id number]. Keturah Fisher MCV (RBC) [Entitic vol] 97.0 fL Normal 81.0-99.0 [facility] Comment on above: Performed By: #### C BC ####[facility] [address] [place] [id number]. Keturah Fisher MONO # 0.7 103/ul Normal 0.3-0.8 [facility] Comment on above: Performed By: #### C BC ####[facility] [address] [place], [place] [address]Dr. Keturah Phillip Monocytes/100 WBC (Bld) 9.5 % Normal 1.7-12.0 [facility] Comment on above: Performed By: #### C BC ####[facility] [address] [place], [place] [address]Dr. Keturah Fisher NEUT # 4.1 103/ul Normal 1.4-6.5 [facility] Comment on above: Performed By: #### C BC ####[facility] [address] [place], [place] [address]Dr. Elisaeli Fisher Neutrophils/100 WBC (Bld) 54.7 % Normal 43.0-75.0 [facility] Comment on above: Performed By: #### C BC ####[facility] [address] [place], [place] [address]Dr. Keturah Phillip Platelet mean volume (Bld) [Entitic vol] 9.6 fL Normal 9.5-13.5 [facility] Comment on above: Performed By: #### C BC ####[facility] [address] [place], [place] [id number]. Keturah Fisher PLT 235 103/ul Normal 150-450 [facility] Comment on above: Performed By: #### C BC ####[facility] [address] [place] [id number]. Keturah Fisher RBC 4.30 106/ul Normal 4.20-5.40 [facility] Comment on above: Performed By: #### C BC ####[facility] [address] [place] [address]Dr. Keturah Fisher WBC 7.6 103/ul Normal 4.0-11.0 [facility] Comment on above: Performed By: #### C BC ####[facility] [address] [place] [address]Dr. Keturah Fisher ER URINE PROFILEon 2 Bilirubin Ql (U) Negative Normal NEGATIVE [facility] Comment on above: Performed By: #### L IPA, CMP, CRP, NAT #### [facility] [address] [address] [address] Keturah Fisher Clarity (U) CLEAR Normal CLEAR [facility] Comment on above: Performed By: #### L IPA, CMP, CRP, NAT #### [facility] [address] [address] [address] Keturah Fisher Color (U) YELLOW Normal YELLOW [facility] Comment on above: Performed By: #### L IPA, CMP, CRP, NAT #### [facility] [address] [address] [address] Keturah Fisher ERUAHGarfield A micrscopic examina tion will be performed if indicated. Normal [facility] Comment on above: Performed By: #### L IPA, CMP, CRP, NAT #### [facility] [address] [address] [address] Keturah Fisher Glucose Ql (U) Negative Normal NEGATIVE [facility] Comment on above: Performed By: #### L IPA, CMP, CRP, NAT #### [facility] [address] [address] [address] Keturah Fisher Hemoglobin Ql (U) Negative Normal NEGATIVE [facility] Comment on above: Performed By: #### L IPA, CMP, CRP, NAT #### [facility] [address] [address] [address] Keturah Fisher Ketones Ql (U) Negative Normal NEGATIVE [facility] Comment on above: Performed By: #### L IPA, CMP, CRP, NAT #### [facility] [address] [place] [address] Dr. Keturah Fisher LEUKOCYTES Negative Normal NEGATIVE [facility] Comment on above: Performed By: #### L IPA, CMP, CRP, NAT #### [facility] [address] [address] [address] Keturah Fisher Nitrite Ql (U) Negative Normal NEGATIVE [facility] Comment on above: Performed By: #### L IPA, CMP, CRP, NAT #### [facility] [address] [address] [address] Keturah Fisher pH (U) 5.5 [pH] Normal 5-9 [facility] Comment on above: Performed By: #### L IPA, CMP, CRP, NAT #### [facility] [address] [place] [address] Dr. Keturah Fisher SPEC GRAVITY >=1.030 Abnormal 1.005-<=1. 025 [facility] Comment on above: Performed By: #### L IPA, CMP, CRP, NAT #### [facility] [address] [place] [address] Dr. Keturah Fisher UA PROTEIN Negative Normal NEGATIVE/ TRACE [facility] Comment on above: Performed By: #### L IPA, CMP, CRP, NAT #### [facility] [address] [place] [address] Dr. Keturah Fisher UR MICRO IND NOT INDICATED Normal [facility] Comment on above: Performed By: #### L IPA, CMP, CRP, NAT #### [facility] [address] [place] [address] Dr. Keturah Fisher Urobilinogen Qn (U) 0.2 {Marizol'U}/dL Normal 0.2 - 1. 0 [facility] Comment on above: Performed By: #### L IPA, CMP, CRP, NAT #### [facility] [address] [place] [address] Dr. Keturah Fisher LIPASEon 01-15-2022 Lipase [Catalytic activity/Vol] 572.0 U/L Critically high 73.0-393.0 [facility] Comment on above: Performed By: #### C BC #### [facility] [address] [address] [address] Keturah Fisher URon 01-15-2022 , QUAL Negative Normal NEGATIVE [facility] Comment on above: Performed By: #### L IPA, CMP, CRP, NAT #### [facility] [address] [address] [address] Keturah Fisher PROF 14(COMP METB)on 022 Albumin [Mass/Vol] 3.8 g/dL Normal 3.4-5.0 [facility] Comment on above: Performed By: #### C BC #### [facility] [address] [address] [address] Keturah Fisher Albumin/Globulin [Mass ratio] 1.1 {ratio} Normal [facility] Comment on above: Performed By: #### C BC #### [facility] [address] [place] [address] Dr. Keturah Fisher ALP [Catalytic activity/Vol] 151 U/L Critically high 46-116 [facility] Comment on above: Performed By: #### C BC #### [facility] [address] [address] [address] Keturah Fisher ALT [Catalytic activity/Vol] 14 U/L Normal 14-59 [facility] Comment on above: Performed By: #### C BC #### [facility] [address] [place] [address] Dr. Keturah Fisher Anion gap [Moles/Vol] 5.5 mmol/L Normal [facility] Comment on above: Performed By: #### C BC #### [facility] [address] [place] [address] Dr. Keturah Fisher AST [Catalytic activity/Vol] 16 U/L Normal 15-37 [facility] Comment on above: Performed By: #### C BC #### [facility] [address] [place] [address] Dr. Keturah Fisher Bilirubin [Mass/Vol] 0.1 mg/dL Critically low 0.2-1.0 [facility] Comment on above: Performed By: #### C BC #### [facility] [address] [address] [address] Keturah Fisher Calcium [Mass/Vol] 9.5 mg/dL Normal 8.5-10.1 [facility] Comment on above: Performed By: #### C BC #### [facility] [address] [address] [address] Keturah Fisher Chloride [Moles/Vol] 105 mmol/L Normal 98-107 [facility] Comment on above: Performed By: #### C BC #### [facility] [address] [place] [address] Dr. Keturah Fisher CO2 [Moles/Vol] 30.0 mmol/L Normal 21.0-32.0 [facility] Comment on above: Performed By: #### C BC #### [facility] [address] [place] [address] Dr. Keturah Fisher Creatinine [Mass/Vol] 0.90 mg/dL Normal 0.55-1.02 [facility] Comment on above: Performed By: #### C BC #### [facility] [address] [place] [address] Dr. Keturah Fisher EGFR-AF DOMINICAN >60 Normal >=60 [facility] Comment on above: Performed By: #### C BC #### [facility] [address] [place] [address] Dr. Keturah Fisher EGFR-NON AF DOMINICAN >60 Normal >=60 [facility] Comment on above: Performed By: #### C BC #### [facility] [address] [address] [address] Keturah Fisher Globulin (S) [Mass/Vol] 3.4 g/dL Normal [facility] Comment on above: Performed By: #### C BC #### [facility] [address] [place] [address] Dr. Keturah Fisher Glucose [Mass/Vol] 82 mg/dL Normal 74-106 [facility] Comment on above: Performed By: #### C BC #### [facility] [address] [place] [address] Dr. Keturah Fisher Potassium [Moles/Vol] 3.5 mmol/L Normal 3.5-5.1 [facility] Comment on above: Performed By: #### C BC #### [facility] [address] [place] [address] Dr. Keturah Fisher Protein [Mass/Vol] 7.2 g/dL Normal 6.4-8.2 [facility] Comment on above: Performed By: #### C BC #### [facility] [address] [place] [address] Dr. Keturah Fisher Sodium [Moles/Vol] 137 mmol/L Normal 136-145 [facility] Comment on above: Performed By: #### C BC #### [facility] [address] [place] [address] Dr. Keturah Fisher Urea nitrogen [Mass/Vol] 12.0 mg/dL Normal 7.0-18.0 [facility] Comment on above: Performed By: #### C BC #### [facility] [address] [place] [address] Dr. Keturah Fisher Urea nitrogen/Creatinine [Mass ratio] 13.3 mg/mg Normal [facility] Comment on above: Performed By: #### C BC #### [facility] [address] [place] [address] Dr. Keturah Fisher AMYLASEon 12-13-2021 Amylase [Catalytic activity/Vol] 268 U/L Critically high 25-115 [facility] Comment on above: Performed By: #### L IPA, CMP, CRP, NAT #### [facility] [address] [place] [address] Dr. Keturah Fisher CBC AUTO DIFFon 12-13-2021 BASO # 0.1 103/ul Normal 0.0-0.1 [facility] Comment on above: Performed By: #### L IPA, CMP, CRP, NAT #### [facility] [address] [place] [address] Dr. Keturah Fisher Basophils/100 WBC (Bld) 0.6 % Normal 0.2-2.0 [facility] Comment on above: Performed By: #### L IPA, CMP, CRP, NAT #### [facility] [address] [place] [address] Dr. Keturah Fisher EO # 0.1 103/ul Normal 0.0-0.7 [facility] Comment on above: Performed By: #### L IPA, CMP, CRP, NAT #### [facility] [address] [place] [address] Dr. Keturah Fisher Eosinophils/100 WBC (Bld) 1.2 % Normal 0.9-7.0 [facility] Comment on above: Performed By: #### L IPA, CMP, CRP, NAT #### [facility] [address] [place] [address] Dr. Keturah Fisher Erythrocyte distribution width (RBC) [Ratio] 13.2 % Normal 11.0-15.0 [facility] Comment on above: Performed By: #### L IPA, CMP, CRP, NAT #### [facility] [address] [place] [address] Dr. Keturah Fisher Hematocrit (Bld) [Volume fraction] 44.7 % Normal 36.0-48.0 [facility] Comment on above: Performed By: #### L IPA, CMP, CRP, NAT #### [facility] [address] [place] [address] Dr. Keturah Fisher Hemoglobin (Bld) [Mass/Vol] 14.7 g/dL Normal 12.0-16.0 [facility] Comment on above: Performed By: #### L IPA, CMP, CRP, NAT #### [facility] [address] [place] [address] Dr. Keturah Fisher IG # 0.03 10e3/ul Normal 0.00-0.03 [facility] Comment on above: Performed By: #### L IPA, CMP, CRP, NAT #### [facility] [address] [place] [address] Dr. Keturah Fisher IG % 0.3 % Normal 0.0-0.5 [facility] Comment on above: Performed By: #### L IPA, CMP, CRP, NAT #### [facility] [address] [place] [address] Dr. Keturah Fisher LYMPH # 3.6 103/ul Normal 1.2-3.8 [facility] Comment on above: Performed By: #### L IPA, CMP, CRP, NAT #### [facility] [address] [place] [address] Dr. Keturah Fisher Lymphocytes/100 WBC (Bld) 32.7 % Normal 20.5-60.0 [facility] Comment on above: Performed By: #### L IPA, CMP, CRP, NAT #### [facility] [address] [place] [address] Dr. Keturah Fisher MANUAL DIFF REQ NO Normal [facility] Comment on above: Performed By: #### L IPA, CMP, CRP, NAT #### [facility] [address] [place] [address] Dr. Keturah Fisher MCH (RBC) [Entitic mass] 32.2 pg Normal 26.7-34.0 [facility] Comment on above: Performed By: #### L IPA, CMP, CRP, NAT #### [facility] [address] [place] [address] Dr. Keturah Fisher MCHC (RBC) [Mass/Vol] 32.9 g/dL Normal 29.9-35.2 [facility] Comment on above: Performed By: #### L IPA, CMP, CRP, NAT #### [facility] [address] [place] [address] Dr. Keturah Fisher MCV (RBC) [Entitic vol] 98.0 fL Normal 81.0-99.0 [facility] Comment on above: Performed By: #### L IPA, CMP, CRP, NAT #### [facility] [address] [place] [address] Dr. Keturah Fisher MONO # 1.1 103/ul Critically high 0.3-0.8 [facility] Comment on above: Performed By: #### L IPA, CMP, CRP, NAT #### [facility] [address] [place] [address] Dr. Keturah Fisher Monocytes/100 WBC (Bld) 9.7 % Normal 1.7-12.0 [facility] Comment on above: Performed By: #### L IPA, CMP, CRP, NAT #### [facility] [address] [address] [address] Keturah Fisher NEUT # 6.1 103/ul Normal 1.4-6.5 [facility] Comment on above: Performed By: #### L IPA, CMP, CRP, NAT #### [facility] [address] [address] [address] Keturah Fisher Neutrophils/100 WBC (Bld) 55.5 % Normal 43.0-75.0 [facility] Comment on above: Performed By: #### L IPA, CMP, CRP, NAT #### [facility] [address] [address] [address] Keturah Fisher Platelet mean volume (Bld) [Entitic vol] 9.7 fL Normal 9.5-13.5 [facility] Comment on above: Performed By: #### L IPA, CMP, CRP, NAT #### [facility] [address] [place] [address] Dr. Keturah Fisher PLT 274 103/ul Normal 150-450 [facility] Comment on above: Performed By: #### L IPA, CMP, CRP, NAT #### [facility] [address] [place] [address] Dr. Keturah Fisher RBC 4.56 106/ul Normal 4.20-5.40 [facility] Comment on above: Performed By: #### L IPA, CMP, CRP, NAT #### [facility] [address] [place] [address] Dr. Keturah Fisher WBC 10.9 103/ul Normal 4.0-11.0 [facility] Comment on above: Performed By: #### L IPA, CMP, CRP, NAT #### [facility] [address] [place] [address] Dr. Keturah Fisher CRPon 12-13-2021 CRP [Mass/Vol] mg/L Normal <=1.[address] [facility] Comment on above: Performed By: #### L IPA, CMP, CRP, NAT #### [facility] [address] [place] [address] ABD/PELV W CONon [...] AGUSTIN HIGHTOWER Date: 2021-12-13 20:50 Normal [facility] LIPASEon 12-13-2021 Lipase [Catalytic activity/Vol] 1496.0 U/L Critically high 73.0-393.0 [facility] Comment on above: Performed By: #### L IPA, CMP, CRP, NAT #### [facility] [address] [address] [address] Keturah Fisher PROF 14(COMP METB)on 022 Albumin [Mass/Vol] 4.0 g/dL Normal 3.4-5.0 [facility] Comment on above: Performed By: #### L IPA, CMP, CRP, NAT #### [facility] [address] [place] [address] Dr. Keturah Fisher Albumin/Globulin [Mass ratio] 1.0 {ratio} Normal [facility] Comment on above: Performed By: #### L IPA, CMP, CRP, NAT #### [facility] [address] [place] [address] Dr. Keturah Fisher ALP [Catalytic activity/Vol] 166 U/L Critically high 46-116 [facility] Comment on above: Performed By: #### L IPA, CMP, CRP, NAT #### [facility] [address] [address] [address] Keturha Fisher ALT [Catalytic activity/Vol] 19 U/L Normal 14-59 [facility] Comment on above: Performed By: #### L IPA, CMP, CRP, NAT #### [facility] [address] [address] [address] Keturah Fisher Anion gap [Moles/Vol] 9.5 mmol/L Normal [facility] Comment on above: Performed By: #### L IPA, CMP, CRP, NAT #### [facility] [address] [place] [address] Dr. Keturah Fisher AST [Catalytic activity/Vol] 16 U/L Normal 15-37 [facility] Comment on above: Performed By: #### L IPA, CMP, CRP, NAT #### [facility] [address] [address] [address] Keturah Fisher Bilirubin [Mass/Vol] 0.1 mg/dL Critically low 0.2-1.0 [facility] Comment on above: Performed By: #### L IPA, CMP, CRP, NAT #### [facility] [address] [address] [address] Keturah Fisher Calcium [Mass/Vol] 9.6 mg/dL Normal 8.5-10.1 [facility] Comment on above: Performed By: #### L IPA, CMP, CRP, NAT #### [facility] [address] [address] [address] Keturah Fisher Chloride [Moles/Vol] 104 mmol/L Normal 98-107 [facility] Comment on above: Performed By: #### L IPA, CMP, CRP, NAT #### [facility] [address] [address] [address] Keturah Fisher CO2 [Moles/Vol] 29.7 mmol/L Normal 21.0-32.0 [facility] Comment on above: Performed By: #### L IPA, CMP, CRP, NAT #### [facility] [address] [place] [address] Dr. Keturah Fisher Creatinine [Mass/Vol] 0.85 mg/dL Normal 0.55-1.02 [facility] Comment on above: Performed By: #### L IPA, CMP, CRP, NAT #### [facility] [address] [place] [address] Dr. Keturah Fisher EGFR-AF DOMINICAN >60 Normal >=60 [facility] Comment on above: Performed By: #### L IPA, CMP, CRP, NAT #### [facility] [address] [place] [address] Dr. Keturah Fisher EGFR-NON AF DOMINICAN >60 Normal >=60 [facility] Comment on above: Performed By: #### L IPA, CMP, CRP, NAT #### [facility] [address] [place] [address] Dr. Keturah Fisher Globulin (S) [Mass/Vol] 3.9 g/dL Normal [facility] Comment on above: Performed By: #### L IPA, CMP, CRP, NAT #### [facility] [address] [place] [address] Dr. Keturah Fisher Glucose [Mass/Vol] 70 mg/dL Critically low 74-106 [facility] Comment on above: Performed By: #### L IPA, CMP, CRP, NAT #### [facility] [address] [place] [address] Dr. Keturah Fisher Potassium [Moles/Vol] 3.2 mmol/L Critically low 3.5-5.1 [facility] Comment on above: Performed By: #### L IPA, CMP, CRP, NAT #### [facility] [address] [place] [address] Dr. Keturah Fisher Protein [Mass/Vol] 7.9 g/dL Normal 6.4-8.2 [facility] Comment on above: Performed By: #### L IPA, CMP, CRP, NAT #### [facility] [address] [place] [address] Dr. Keturah Fisher Sodium [Moles/Vol] 140 mmol/L Normal 136-145 [facility] Comment on above: Performed By: #### L IPA, CMP, CRP, NAT #### [facility] [address] [place] [address] Dr. Keturah Fisher Urea nitrogen [Mass/Vol] 8.0 mg/dL Normal 7.0-18.0 [facility] Comment on above: Performed By: #### L IPA, CMP, CRP, NAT #### [facility] [address] [place] [address] Dr. Keturah Fisher Urea nitrogen/Creatinine [Mass ratio] 9.4 mg/mg Normal [facility] Comment on above: Performed By: #### L IPA, CMP, CRP, NAT #### [facility] [address] [place] [address] Dr. Keturah Fisher AMYLASEon 12-05-2021 Amylase [Catalytic activity/Vol] 223 U/L Critically high 25-115 [facility] Comment on above: Performed By: #### L IPA, CMP, CRP, NAT #### [facility] [address] [place] [address] Dr. Keturah Fisher CBC AUTO DIFFon 12-05-2021 BASO # 0.1 103/ul Normal 0.0-0.1 [facility] Comment on above: Performed By: #### C BC #### [facility] [address] [place] [address] Dr. Keturah Fisher Basophils/100 WBC (Bld) 0.7 % Normal 0.2-2.0 [facility] Comment on above: Performed By: #### C BC #### [facility] [address] [place] [address] Dr. Keturah Fisher EO # 0.2 103/ul Normal 0.0-0.7 [facility] Comment on above: Performed By: #### C BC #### [facility] [address] [place] [address] Dr. Keturah Fisher Eosinophils/100 WBC (Bld) 1.7 % Normal 0.9-7.0 [facility] Comment on above: Performed By: #### C BC #### [facility] [address] [place] [address] Dr. Keturah Fisher Erythrocyte distribution width (RBC) [Ratio] 13.0 % Normal 11.0-15.0 [facility] Comment on above: Performed By: #### C BC #### [facility] [address] [place] [address] Dr. Keturah Fisher Hematocrit (Bld) [Volume fraction] 44.9 % Normal 36.0-48.0 [facility] Comment on above: Performed By: #### C BC #### [facility] [address] [place] [address] Dr. Keturah Fisher Hemoglobin (Bld) [Mass/Vol] 15.1 g/dL Normal 12.0-16.0 [facility] Comment on above: Performed By: #### C BC #### [facility] [address] [place] [address] Dr. Keturah Fisher IG # 0.02 10e3/ul Normal 0.00-0.03 [facility] Comment on above: Performed By: #### C BC #### [facility] [address] [place] [address] Dr. Keturah Fisher IG % 0.2 % Normal 0.0-0.5 [facility] Comment on above: Performed By: #### C BC #### [facility] [address] [place] [address] Dr. Keturah Fisher LYMPH # 2.8 103/ul Normal 1.2-3.8 [facility] Comment on above: Performed By: #### C BC #### [facility] [address] [place] [address] Dr. Keturah Fisher Lymphocytes/100 WBC (Bld) 29.8 % Normal 20.5-60.0 [facility] Comment on above: Performed By: #### C BC #### [facility] [address] [place] [address] Dr. Keturah Fisher MANUAL DIFF REQ NO Normal [facility] Comment on above: Performed By: #### C BC #### [facility] [address] [place] [address] Dr. Keturah Fisher MCH (RBC) [Entitic mass] 32.4 pg Normal 26.7-34.0 [facility] Comment on above: Performed By: #### C BC #### [facility] [address] [place] [address] Dr. Keturah Fisher MCHC (RBC) [Mass/Vol] 33.6 g/dL Normal 29.9-35.2 [facility] Comment on above: Performed By: #### C BC #### [facility] [address] [place] [address] Dr. Keturah Fisher MCV (RBC) [Entitic vol] 96.4 fL Normal 81.0-99.0 [facility] Comment on above: Performed By: #### C BC #### [facility] [address] [place] [address] Dr. Keturah Fisher MONO # 0.6 103/ul Normal 0.3-0.8 [facility] Comment on above: Performed By: #### C BC #### [facility] [address] [place] [address] Dr. Keturah Fisher Monocytes/100 WBC (Bld) 6.3 % Normal 1.7-12.0 [facility] Comment on above: Performed By: #### C BC #### [facility] [address] [place] [address] Dr. Keturah Fisher NEUT # 5.7 103/ul Normal 1.4-6.5 [facility] Comment on above: Performed By: #### C BC #### [facility] [address] [address] [address] Keturah Fisher Neutrophils/100 WBC (Bld) 61.3 % Normal 43.0-75.0 [facility] Comment on above: Performed By: #### C BC #### [facility] [address] [place] [address] Dr. Keturah Fisher Platelet mean volume (Bld) [Entitic vol] 10.7 fL Normal 9.5-13.5 [facility] Comment on above: Performed By: #### C BC #### [facility] [address] [place] [address] Dr. Keturah Fisher PLT 217 103/ul Normal 150-450 [facility] Comment on above: Performed By: #### C BC #### [facility] [address] [place] [address] Dr. Keturah Fisher RBC 4.66 106/ul Normal 4.20-5.40 [facility] Comment on above: Performed By: #### C BC #### [facility] [address] [place] [address] Dr. Keturah Fisher WBC 9.2 103/ul Normal 4.0-11.0 [facility] Comment on above: Performed By: #### C BC #### [facility] [address] [place] [address] Dr. Keturah Fisher LIPASEon 12-05-2021 Lipase [Catalytic activity/Vol] 725.0 U/L Critically high 73.0-393.0 [facility] Comment on above: Performed By: #### L IPA, CMP, CRP, NAT #### [facility] [address] [place] [address] Dr. Keturah Fisher PROF 14(COMP METB)on 022 Albumin [Mass/Vol] 4.2 g/dL Normal 3.4-5.0 [facility] Comment on above: Performed By: #### L IPA, CMP, CRP, NAT #### [facility] [address] [place] [address] Dr. Keturah Fisher Albumin/Globulin [Mass ratio] 1.2 {ratio} Normal [facility] Comment on above: Performed By: #### L IPA, CMP, CRP, NAT #### [facility] [address] [address] [address] Keturah Fisher ALP [Catalytic activity/Vol] 158 U/L Critically high 46-116 [facility] Comment on above: Performed By: #### L IPA, CMP, CRP, NAT #### [facility] [address] [place] [address] Dr. Keturah Fisher ALT [Catalytic activity/Vol] 20 U/L Normal 14-59 [facility] Comment on above: Performed By: #### L IPA, CMP, CRP, NAT #### [facility] [address] [place] [address] Dr. Keturah Fisher Anion gap [Moles/Vol] 14.0 mmol/L Normal [facility] Comment on above: Performed By: #### L IPA, CMP, CRP, NAT #### [facility] [address] [place] [address] Dr. Keturah Fisher AST [Catalytic activity/Vol] 27 U/L Normal 15-37 [facility] Comment on above: Performed By: #### L IPA, CMP, CRP, NAT #### [facility] [address] [place] [address] Dr. Keturah Fisher Bilirubin [Mass/Vol] 0.3 mg/dL Normal 0.2-1.0 [facility] Comment on above: Performed By: #### L IPA, CMP, CRP, NAT #### [facility] [address] [place] [address] Dr. Keturah Fisher Calcium [Mass/Vol] 10.1 mg/dL Normal 8.5-10.1 [facility] Comment on above: Performed By: #### L IPA, CMP, CRP, NAT #### [facility] [address] [place] [address] Dr. Keturah Fisher Chloride [Moles/Vol] 105 mmol/L Normal 98-107 [facility] Comment on above: Performed By: #### L IPA, CMP, CRP, NAT #### [facility] [address] [place] [address] Dr. Keturah Fisher CO2 [Moles/Vol] 24.9 mmol/L Normal 21.0-32.0 [facility] Comment on above: Performed By: #### L IPA, CMP, CRP, NAT #### [facility] [address] [address] [address] Keturah Fisher Creatinine [Mass/Vol] 0.77 mg/dL Normal 0.55-1.02 [facility] Comment on above: Performed By: #### L IPA, CMP, CRP, NAT #### [facility] [address] [address] [address] Keturah Fisher EGFR-AF DOMINICAN >60 Normal >=60 [facility] Comment on above: Performed By: #### L IPA, CMP, CRP, NAT #### [facility] [address] [address] [address] Keturah Fisher EGFR-NON AF DOMINICAN >60 Normal >=60 [facility] Comment on above: Performed By: #### L IPA, CMP, CRP, NAT #### [facility] [address] [address] [address] Keturah Fisher Globulin (S) [Mass/Vol] 3.5 g/dL Normal [facility] Comment on above: Performed By: #### L IPA, CMP, CRP, NAT #### [facility] [address] [address] [address] Keturah Fisher Glucose [Mass/Vol] 91 mg/dL Normal 74-106 [facility] Comment on above: Performed By: #### L IPA, CMP, CRP, NAT #### [facility] [address] [address] [address] Keutrah Fisher Potassium [Moles/Vol] 3.9 mmol/L Normal 3.5-5.1 [facility] Comment on above: Performed By: #### L IPA, CMP, CRP, NAT #### [facility] [address] [address] [address] Keturah Fisher Protein [Mass/Vol] 7.7 g/dL Normal 6.4-8.2 [facility] Comment on above: Performed By: #### L IPA, CMP, CRP, NAT #### [facility] [address] [place] [address] Dr. Keturah Fisher Sodium [Moles/Vol] 140 mmol/L Normal 136-145 [facility] Comment on above: Performed By: #### L IPA, CMP, CRP, NAT #### [facility] [address] [place] [address] Dr. Keturah Fisher Urea nitrogen [Mass/Vol] 8.0 mg/dL Normal 7.0-18.0 [facility] Comment on above: Performed By: #### L IPA, CMP, CRP, NAT #### [facility] [address] [place] [address] Dr. Keturah Fisher Urea nitrogen/Creatinine [Mass ratio] 10.4 mg/mg Normal [facility] Comment on above: Performed By: #### L IPA, CMP, CRP, NAT #### [facility] [address] [place] [address] Dr. Keturah Fisher AMYLASEon 10-11-2021 Amylase [Catalytic activity/Vol] 134 U/L Critically high 25-115 [facility] Comment on above: Performed By: #### C BC #### [facility] [address] [place] [address] Dr. Keturah Fisher CBC AUTO DIFFon 10-11-2021 BASO # 0.1 103/ul Normal 0.0-0.1 [facility] Comment on above: Performed By: #### L IPA, CMP, CRP, NAT #### [facility] [address] [place] [address] Dr. Keturah Fisher Basophils/100 WBC (Bld) 1.0 % Normal 0.2-2.0 [facility] Comment on above: Performed By: #### L IPA, CMP, CRP, NAT #### [facility] [address] [place] [address] Dr. Keturah Fisher EO # 0.2 103/ul Normal 0.0-0.7 [facility] Comment on above: Performed By: #### L IPA, CMP, CRP, NAT #### [facility] [address] [place] [address] Dr. Keturah Fisher Eosinophils/100 WBC (Bld) 2.0 % Normal 0.9-7.0 [facility] Comment on above: Performed By: #### L IPA, CMP, CRP, NAT #### [facility] [address] [place] [address] Dr. Keturah Fisher Erythrocyte distribution width (RBC) [Ratio] 13.2 % Normal 11.0-15.0 [facility] Comment on above: Performed By: #### L IPA, CMP, CRP, NAT #### [facility] [address] [place] [address] Dr. Keturah Fisher Hematocrit (Bld) [Volume fraction] 44.7 % Normal 36.0-48.0 [facility] Comment on above: Performed By: #### L IPA, CMP, CRP, NAT #### [facility] [address] [place] [address] Dr. Keturah Fisher Hemoglobin (Bld) [Mass/Vol] 15.0 g/dL Normal 12.0-16.0 [facility] Comment on above: Performed By: #### L IPA, CMP, CRP, NAT #### [facility] [address] [address] [address] Keturah Fisher IG # 0.02 10e3/ul Normal 0.00-0.03 [facility] Comment on above: Performed By: #### L IPA, CMP, CRP, NAT #### [facility] [address] [place] [address] Dr. Keturah Fisher IG % 0.2 % Normal 0.0-0.5 [facility] Comment on above: Performed By: #### L IPA, CMP, CRP, NAT #### [facility] [address] [place] [address] Dr. Keturah Fisher LYMPH # 4.1 103/ul Critically high 1.2-3.8 [facility] Comment on above: Performed By: #### L IPA, CMP, CRP, NAT #### [facility] [address] [place] [address] Dr. Keturah Fisher Lymphocytes/100 WBC (Bld) 38.9 % Normal 20.5-60.0 [facility] Comment on above: Performed By: #### L IPA, CMP, CRP, NAT #### [facility] [address] [place] [address] Dr. Keturah Fisher MANUAL DIFF REQ NO Normal [facility] Comment on above: Performed By: #### L IPA, CMP, CRP, NAT #### [facility] [address] [place] [address] Dr. Keturah Fisher MCH (RBC) [Entitic mass] 32.1 pg Normal 26.7-34.0 [facility] Comment on above: Performed By: #### L IPA, CMP, CRP, NAT #### [facility] [address] [place] [address] Dr. Keturah Fisher MCHC (RBC) [Mass/Vol] 33.6 g/dL Normal 29.9-35.2 [facility] Comment on above: Performed By: #### L IPA, CMP, CRP, NAT #### [facility] [address] [place] [address] Dr. Keturah Fisher MCV (RBC) [Entitic vol] 95.7 fL Normal 81.0-99.0 [facility] Comment on above: Performed By: #### L IPA, CMP, CRP, NAT #### [facility] [address] [place] [address] Dr. Keturah Fisher MONO # 0.9 103/ul Critically high 0.3-0.8 [facility] Comment on above: Performed By: #### L IPA, CMP, CRP, NAT #### [facility] [address] [place] [address] Dr. Keturah iFsher Monocytes/100 WBC (Bld) 8.8 % Normal 1.7-12.0 [facility] Comment on above: Performed By: #### L IPA, CMP, CRP, NAT #### [facility] [address] [place] [address] Dr. Keturah Fisher NEUT # 5.2 103/ul Normal 1.4-6.5 [facility] Comment on above: Performed By: #### L IPA, CMP, CRP, NAT #### [facility] [address] [place] [address] Dr. Keturah Fisher Neutrophils/100 WBC (Bld) 49.1 % Normal 43.0-75.0 [facility] Comment on above: Performed By: #### L IPA, CMP, CRP, NAT #### [facility] [address] [place] [address] Dr. Keturah Fisher Platelet mean volume (Bld) [Entitic vol] 9.8 fL Normal 9.5-13.5 [facility] Comment on above: Performed By: #### L IPA, CMP, CRP, NAT #### [facility] [address] [place] [address] Dr. Keturah Fisher PLT 299 103/ul Normal 150-450 [facility] Comment on above: Performed By: #### L IPA, CMP, CRP, NAT #### [facility] [address] [place] [address] Dr. Keturah Fisher RBC 4.67 106/ul Normal 4.20-5.40 [facility] Comment on above: Performed By: #### L IPA, CMP, CRP, NAT #### [facility] [address] [place] [address] Dr. Keturah Fisher WBC 10.5 103/ul Normal 4.0-11.0 [facility] Comment on above: Performed By: #### L IPA, CMP, CRP, NAT #### [facility] [address] [place] [address] Dr. Keturah Fisher LIPASEon 10-11-2021 Lipase [Catalytic activity/Vol] 240.0 U/L Normal 73.0-393.0 [facility] Comment on above: Performed By: #### C BC #### [facility] [address] [place] [address] Dr. Keturah Fisher PROF 14(COMP METB)on 022 Albumin [Mass/Vol] 4.3 g/dL Normal 3.4-5.0 [facility] Comment on above: Performed By: #### C BC #### [facility] [address] [place] [address] Dr. Keturah Fisher Albumin/Globulin [Mass ratio] 1.3 {ratio} Normal [facility] Comment on above: Performed By: #### C BC #### [facility] [address] [place] [address] Dr. Keturah Fisher ALP [Catalytic activity/Vol] 162 U/L Critically high 46-116 [facility] Comment on above: Performed By: #### C BC #### [facility] [address] [address] [address] Keturah Fisher ALT [Catalytic activity/Vol] 21 U/L Normal 14-59 [facility] Comment on above: Performed By: #### C BC #### [facility] [address] [place] [address] Dr. Keturah Fisher Anion gap [Moles/Vol] 15.1 mmol/L Normal [facility] Comment on above: Performed By: #### C BC #### [facility] [address] [place] [address] Dr. Keturah Fisher AST [Catalytic activity/Vol] 16 U/L Normal 15-37 [facility] Comment on above: Performed By: #### C BC #### [facility] [address] [place] [address] Dr. Keturah Fisher Bilirubin [Mass/Vol] 0.2 mg/dL Normal 0.2-1.0 [facility] Comment on above: Performed By: #### C BC #### [facility] [address] [place] [address] Dr. Keturah Fisher Calcium [Mass/Vol] 9.6 mg/dL Normal 8.5-10.1 [facility] Comment on above: Performed By: #### C BC #### [facility] [address] [place] [address] Dr. Keturah Fisher Chloride [Moles/Vol] 104 mmol/L Normal 98-107 [facility] Comment on above: Performed By: #### C BC #### [facility] [address] [place] [address] Dr. Keturah Fisher CO2 [Moles/Vol] 24.6 mmol/L Normal 21.0-32.0 [facility] Comment on above: Performed By: #### C BC #### [facility] [address] [address] [address] Keturah Fisher Creatinine [Mass/Vol] 0.88 mg/dL Normal 0.55-1.02 [facility] Comment on above: Performed By: #### C BC #### [facility] [address] [address] [address] Keturah Fisher EGFR-AF DOMINICAN >60 Normal >=60 [facility] Comment on above: Performed By: #### C BC #### [facility] [address] [address] [address] Keturah Fisher EGFR-NON AF DOMINICAN >60 Normal >=60 [facility] Comment on above: Performed By: #### C BC #### [facility] [address] [address] [address] Keturah Fisher Globulin (S) [Mass/Vol] 3.3 g/dL Normal [facility] Comment on above: Performed By: #### C BC #### [facility] [address] [address] [address] Keturah Fisher Glucose [Mass/Vol] 111 mg/dL Critically high 74-106 [facility] Comment on above: Performed By: #### C BC #### [facility] [address] [address] [address] Keturah Fisher Potassium [Moles/Vol] 3.7 mmol/L Normal 3.5-5.1 [facility] Comment on above: Performed By: #### C BC #### [facility] [address] [address] [address] Keturah Fisher Protein [Mass/Vol] 7.6 g/dL Normal 6.4-8.2 [facility] Comment on above: Performed By: #### C BC #### [facility] [address] [address] [address] Keturah Fisher Sodium [Moles/Vol] 140 mmol/L Normal 136-145 [facility] Comment on above: Performed By: #### C BC #### [facility] [address] [address] [address] Keturah Fisher Urea nitrogen [Mass/Vol] 11.0 mg/dL Normal 7.0-18.0 [facility] Comment on above: Performed By: #### C BC #### [facility] [address] [address] [address] Keturah Fisher Urea nitrogen/Creatinine [Mass ratio] 12.5 mg/mg Normal [facility] Comment on above: Performed By: #### C BC #### [facility] [facility] [address] [address] [address] Keturah Fisher PROTIMEon 10-11-2021 INR Coag (PPP) [Relative time] 0.94 {INR} Normal [facility] Comment on above: Performed By: #### P T, PTT ####[facility] [id number] [address]Dr. Keturah Fisher INR GUIDELINES SEE BELOW Normal The [facility] Comment on above: Result Comment: KARLY RED INR: 2.0 - 3.0 CONDITIONS NOT LISTED BELOW 2.5 - 3.5 FOR PROSTHETIC HEART VALVE REPLACEMENT 2.5 - 3.5 RECURRENT THROMBOSIS Performed By: #### P T, PTT ####[facility] [id number] [address]Dr. Keturah Fisher PT Coag (PPP) [Time] 10.2 s Normal 9.0-11.6 [facility] Comment on above: Performed By: #### P T, PTT ####[facility] [id number] [address]Dr. Keturah Fisher PTTon 10-11-2021 aPTT Coag (Bld) [Time] 28.0 s Normal 22.3-36.2 Th [facility] Comment on above: Performed By: #### P T, PTT ####[facility] [id number] [address]Dr. Keturah Fisher Amphetamine Screen Ql (U)Ord ered By: Christa Lopez on 10-09-2021 Amphetamines Ql (U) Negative Negative [facility] Barbiturates [Presence] in U rineOrdered By: Christa Lopez on 10-09-2021 Barbiturates Ql (U) Negative Negative [facility] Basophils Auto (Bld) [#/Vol] Ordered By: Christa Lopez on 10-09-2021 Basophils (Bld) [#/Vol] 0.1 10*3/uL 0.0-0.2 [facility] Basophils/100 WBC Auto (Bld) Ordered By: Christa Lopez on 10-09-2021 Basophils/100 WBC (Bld) 0.9 % . [facility] Benzodiazepines [Presence] i n UrineOrdered By: Christa Lopez on 10-09-2021 Benzodiazepines Ql (U) Negative [facility] Bilirubin Auto test strip Ql (U)Ordered By: Christa Lopez on 10-09-2021 Bilirubin Ql (U) Negative Negative [facility] Blood hemoglobin measurement (mass/volume)Ordered By: Christa Lopez on 10-09-2021 Hemoglobin (Bld) [Mass/Vol] 15.7 g/dL 11.8-15.4 [facility] Blood leukocytes automated c ount (number/volume)Ordered By: Christa Lopez on 10-09-2021 WBC (Bld) [#/Vol] 10.1 10*3/uL 4.5-11.0 [facility] Body fluid albumin measureme nt (mass/volume)Ordered By: Christa Lopez on 10-09-2021 Albumin (Body fld) [Mass/Vol] 4.5 g/dL 3.2-5.5 [facility] Cannabinoids [Presence] in U rine by Screen methodOrdered By: Christa Lopez on 10-09-2021 Cannabinoids Screen Ql (U) Negative Negative [facility] Comment on above: These are unconfirme d results and should not be used for legal purposes. Drug Cut-Off Concentration: AMPH 1000 ng/mL BAILEY 200 ng/mL JAKE 200 ng/mL COCM 300 ng/mL OP 300 ng/mL PCP 25 ng/mL THC 20 ng/mL Creatinine and Glomerular fi ltration rate.predicted panel (S/P/Bld)Ordered By: Christa Lopez on 10-09-2021 Creatinine [Mass/Vol] 0.85 mg/dL 0.44-1.03 [facility] Eosinophils Auto (Bld) [#/Vo l]Ordered By: Christa Lopez on 10-09-2021 Eosinophils (Bld) [#/Vol] 0.1 10*3/uL 0.0-0.45 [facility] Eosinophils/100 WBC Auto (Bl d)Ordered By: Christa Lopez on 10-09-2021 Eosinophils/100 WBC (Bld) 1.2 % . [facility] Erythrocyte distribution wid th Auto (RBC) [Ratio]Ordered By: Christa Lopez on 10-09-2021 Erythrocyte distribution width (RBC) [Ratio] 13.5 % 11.9-15.3 [facility] Estimated glomerular filtrat ion rate (GFR) non- AmericanOrdered By: Christa Lopez on 10-09-2021 GFR/1.73 sq M.predicted among non-blacks MDRD (S/P/Bld) [Vol rate/Area] > 60 mL/Min [facility] Globulin Calc (S) [Mass/Vol] Ordered By: Christa Lopez on 10-09-2021 Globulin (S) [Mass/Vol] 2.9 g/dL [facility] Hematocrit Auto (Bld) [Volum e fraction]Ordered By: Christa Lopez on 10-09-2021 Hematocrit (Bld) [Volume fraction] 47.1 % 34.0-46.4 [facility] Ketones Auto test strip (U) [Mass/Vol]Ordered By: Christa Lopez on 10-09-2021 Ketones (U) [Mass/Vol] Negative Negative [facility] - Chemistry and C hemistry - challengeOrdered By: Christa Lopez on 10-09-2021 Lipase [Catalytic activity/Vol] 242.0 U/L 22-51 [facility] Laboratory - Drug toxicology Ordered By: Christa Lopez on 10-09-2021 Opiates Ql (U) Negative Negative [facility] Laboratory - Hematology and Cell countsOrdered By: Christa Lopez on 10-09-2021 Nucleated RBC/100 WBC (Bld) [Ratio] 0.1 % 0-0.5 [facility] Lymphocytes Auto (Bld) [#/Vo l]Ordered By: Christa Lopez on 10-09-2021 Lymphocytes (Bld) [#/Vol] 2.6 10*3/uL 1.00-4.8 [facility] Lymphocytes/100 WBC Auto (Bl d)Ordered By: Christa Lopez on 10-09-2021 Lymphocytes/100 WBC (Bld) 26.0 % . [facility] MCH Auto (RBC) [Entitic mass ]Ordered By: Christa Lopez on 10-09-2021 MCH (RBC) [Entitic mass] 32.4 pg 24.7-34.3 [facility] MCHC Auto (RBC) [Mass/Vol]Or dered By: Christa Lopez on 10-09-2021 MCHC (RBC) [Mass/Vol] 33.3 g/dL 32.0-35.0 [facility] MCV Auto (RBC) [Entitic vol] Ordered By: Christa Lopez on 10-09-2021 MCV (RBC) [Entitic vol] 97.3 fL 80-100 [facility] Monocytes Auto (Bld) [#/Vol] Ordered By: Christa Lopez on 10-09-2021 Monocytes (Bld) [#/Vol] 0.8 10*3/uL 0.0-0.8 [facility] Monocytes/100 WBC Auto (Bld) Ordered By: Christa Lopez on 10-09-2021 Monocytes/100 WBC (Bld) 7.6 % . [facility] Neutrophils Auto (Bld) [#/Vo l]Ordered By: Christa Lopez on 10-09-2021 Neutrophils (Bld) [#/Vol] 6.5 10*3/uL 1.8-7.7 [facility] Neutrophils/100 WBC Auto (Bl d)Ordered By: Christa Lopez on 10-09-2021 Neutrophils/100 WBC (Bld) 64.3 % . [facility] No Panel InformationOrdered By: Christa Lopez on 10-09-2021 Estimated GFR () > 60 mL/Min [facility] Comment on above: GFR estimated refere nce range: According to KDOQI guidelines, <60 ml/min/1.73m2 is sufficient to diagnose a patient with chronic kidney disease. Pharmacy Creatinine Clearance (Chem 61.23 [facility] Phencyclidine Screen Ql (U)O rdered By: Christa Lopez on 10-09-2021 Phencyclidine Ql (U) Negative Negative [facility] Platelet mean volume Auto (B ld) [Entitic vol]Ordered By: Christa Lopez on 10-09-2021 Platelet mean volume (Bld) [Entitic vol] 8.5 fL 6.3-10.7 [facility] Platelets Auto (Bld) [#/Vol] Ordered By: Christa Lopez on 10-09-2021 Platelets (Bld) [#/Vol] 284 10*3/uL 150-450 [facility] Protein Auto test strip (U) [Mass/Vol]Ordered By: Christa Lopez on 10-09-2021 Protein (U) [Mass/Vol] Negative Negative [facility] Protein [Mass/volume] in Ser um or PlasmaOrdered By: Christa Lopez on 10-09-2021 Protein [Mass/Vol] 7.4 g/dL 6.1-7.9 [facility] RBC Auto (Bld) [#/Vol]Ordere d By: Christa Lopez on 10-09-2021 RBC (Bld) [#/Vol] 4.84 10*6/uL 3.60-5.00 [facility] Serum or plasma alanine hughes otransferase measurement without P-5'-P (enzymatic activiOrdered By: Christa Lopez on 10-09-2021 ALT No additional P-5'-P [Catalytic activity/Vol] 19 U/L 10-60 [facility] Serum or plasma albumin/glob ulin mass ratioOrdered By: Christa Lopez on 10-09-2021 Albumin/Globulin [Mass ratio] 1.6 {ratio} [facility] Serum or plasma alkaline jaqueline sphatase measurement (enzymatic activity/volume)Ordered By: Christa Lopez on 10-09-2021 ALP [Catalytic activity/Vol] 138 U/L 32-92 [facility] Serum or plasma aspartate am inotransferase measurement (enzymatic activity/volume)Ordered By: Christa Lopez on 10-09-2021 AST [Catalytic activity/Vol] 31 U/L 10-42 [facility] Serum or plasma calcium priscilla urement (mass/volume)Ordered By: Christa Lopez on 10-09-2021 Calcium [Mass/Vol] 10.3 mg/dL 8.2-10.2 [facility] Serum or plasma chloride daron surement (moles/volume)Ordered By: Christa Lopez on 10-09-2021 Chloride [Moles/Vol] 100 mmol/L 95-114 [facility] Serum or plasma glucose priscilla urement (mass/volume)Ordered By: Christa Lopez on 10-09-2021 Glucose [Mass/Vol] 75 mg/dL 70-100 [facility] Comment on above: ADA recommended refe rence range Random Glucose Reference Range is dependent on time and content of last meal. Glucose of more than 200 mg/dL in a nonstressed, ambulatory subject supports the diagnosis of Diabetes Mellitus. Serum or plasma potassium me asurement (moles/volume)Ordered By: Christa Lopez on 10-09-2021 Potassium [Moles/Vol] 3.9 mmol/L 3.5-5.1 [facility] Serum or plasma sodium measu rement (moles/volume)Ordered By: Christa Lopez on 10-09-2021 Sodium [Moles/Vol] 136 mmol/L 136-146 [facility] Serum or plasma total biliru bin measurement (mass/volume)Ordered By: Christa Lopez on 10-09-2021 Bilirubin [Mass/Vol] 0.4 mg/dL 0.3-1.2 [facility] Serum or plasma total carbon dioxide measurement (moles/volume)Ordered By: Christa Lopez on 10-09-2021 CO2 [Moles/Vol] 24.1 mmol/L 22.0-30.0 [facility] Serum or plasma urea nitroge n measurement (mass/volume)Ordered By: Christa Lopez on 10-09-2021 Urea nitrogen [Mass/Vol] 12 mg/dL 9-23 [facility] Troponin I.cardiac [Mass/vol ume] in Serum or Plasma by High sensitivity methodOrdered By: Christa Lopez on 10-09-2021 Troponin I.cardiac High sensitivity method [Mass/Vol] 3 pg/mL 0-15 [facility] Urine appearanceOrdered By: Christa Lopez on 10-09-2021 Appearance (U) Clear Clear [facility] Urine cocaine detectionOrder ed By: Christa Lopez on 10-09-2021 Cocaine Ql (U) Negative Negative [facility] Urine colorOrdered By: Christa Lopez on 10-09-2021 Color (U) Yellow Yellow [facility] Urine glucose measurement by automated test strip (mass/volume)Ordered By: Christa Lopez on 10-09-2021 Glucose Auto test strip (U) [Mass/Vol] Normal mg/dL Normal [facility] Urine hemoglobin detection b y automated test stripOrdered By: Christa Lopez on 10-09-2021 Hemoglobin Auto test strip Ql (U) Negative Negative [facility] Urine leukocyte esterase det ection by automated test stripOrdered By: Christa Lopez on 10-09-2021 Leukocyte esterase Auto test strip Ql (U) Negative Negative [facility] Urine nitrite detection by a utomated test stripOrdered By: Christa Lopez on 10-09-2021 Nitrite Auto test strip Ql (U) Negative Negative [facility] Urobilinogen Auto test strip (U) [Mass/Vol]Ordered By: Christa Lopez on 10-09-2021 Urobilinogen (U) [Mass/Vol] Normal mg/dL Normal [facility] pH Auto test strip (U)Ordere d By: Christa Lopez on 10-09-2021 pH (U) 1.025 [pH] 1.001-1.03 0 [facility] pH (U) 5.5 [pH] 5.0-9.0 [facility] Albumin [Mass/volume] in Ser um or PlasmaOrdered By: Reinaldo Amor on 10-04-2021 Albumin [Mass/Vol] 3.6 g/dL 3.2-5.5 [facility] Basophils Auto (Bld) [#/Vol] Ordered By: Reinaldo Amor on 10-04-2021 Basophils (Bld) [#/Vol] 0.1 10*3/uL 0.0-0.2 [facility] Basophils/100 WBC Auto (Bld) Ordered By: Reinaldo Amor on 10-04-2021 Basophils/100 WBC (Bld) 0.8 % . [facility] Bilirubin Auto test strip Ql (U)Ordered By: Reinaldo Amor on 10-04-2021 Bilirubin Ql (U) Negative Negative [facility] Blood hemoglobin measurement (mass/volume)Ordered By: Reinaldo Amor on 10-04-2021 Hemoglobin (Bld) [Mass/Vol] 13.9 g/dL 11.8-15.4 [facility] Blood leukocytes automated c ount (number/volume)Ordered By: Reinaldo Amor on 10-04-2021 WBC (Bld) [#/Vol] 10.4 10*3/uL 4.5-11.0 [facility] Creatinine and Glomerular fi ltration rate.predicted panel (S/P/Bld)Ordered By: Reinaldo Amor on 10-04-2021 Creatinine [Mass/Vol] 0.73 mg/dL 0.44-1.03 [facility] Direct bilirubin measurement Ordered By: Reinaldo Amor on 10-04-2021 Bilirubin.direct [Mass/Vol] mg/dL 0.0-0.4 [facility] Eosinophils Auto (Bld) [#/Vo l]Ordered By: Reinaldo Amor on 10-04-2021 Eosinophils (Bld) [#/Vol] 0.1 10*3/uL 0.0-0.45 [facility] Eosinophils/100 WBC Auto (Bl d)Ordered By: Reinaldo Amor on 10-04-2021 Eosinophils/100 WBC (Bld) 0.5 % . [facility] Erythrocyte distribution wid th Auto (RBC) [Ratio]Ordered By: Reinaldo Amor on 10-04-2021 Erythrocyte distribution width (RBC) [Ratio] 13.7 % 11.9-15.3 [facility] Estimated glomerular filtrat ion rate (GFR) non- AmericanOrdered By: Reinaldo Amor on 10-04-2021 GFR/1.73 sq M.predicted among non-blacks MDRD (S/P/Bld) [Vol rate/Area] > 60 mL/Min [facility] Globulin Calc (S) [Mass/Vol] Ordered By: Reinaldo Amor on 10-04-2021 Globulin (S) [Mass/Vol] 2.6 g/dL [facility] Hematocrit Auto (Bld) [Volum e fraction]Ordered By: Reinaldo Amor on 10-04-2021 Hematocrit (Bld) [Volume fraction] 41.1 % 34.0-46.4 [facility] Ketones Auto test strip (U) [Mass/Vol]Ordered By: Reinaldo Amor on 10-04-2021 Ketones (U) [Mass/Vol] Negative Negative [facility] Laboratory - Chemistry and C hemistry - challengeOrdered By: Reinaldo Amor on 10-04-2021 Lipase [Catalytic activity/Vol] 107.0 U/L 22- [facility] Laboratory - Hematology and Cell countsOrdered By: Reinaldo Amor on 10-04-2021 Nucleated RBC/100 WBC (Bld) [Ratio] 0.1 % 0-0.5 [facility] Lymphocytes Auto (Bld) [#/Vo l]Ordered By: Reinaldo Amor on 10-04-2021 Lymphocytes (Bld) [#/Vol] 2.5 10*3/uL 1.00-4.8 [facility] Lymphocytes/100 WBC Auto (Bl d)Ordered By: Reinaldo Amor on 10-04-2021 Lymphocytes/100 WBC (Bld) 24.1 % . [facility] MCH Auto (RBC) [Entitic mass ]Ordered By: Reinaldo Amor on 10-04-2021 MCH (RBC) [Entitic mass] 32.6 pg 24.7-34.3 [facility] MCHC Auto (RBC) [Mass/Vol]Or dered By: Reinaldo Amor on 10-04-2021 MCHC (RBC) [Mass/Vol] 33.8 g/dL 32.0-35.0 [facility] MCV Auto (RBC) [Entitic vol] Ordered By: Reinaldo Amor on 10-04-2021 MCV (RBC) [Entitic vol] 96.5 fL 80-100 [facility] Monocytes Auto (Bld) [#/Vol] Ordered By: Reinaldo Amor on 10-04-2021 Monocytes (Bld) [#/Vol] 0.9 10*3/uL 0.0-0.8 [facility] Monocytes/100 WBC Auto (Bld) Ordered By: Reinaldo Amor on 10-04-2021 Monocytes/100 WBC (Bld) 8.4 % . [facility] Neutrophils Auto (Bld) [#/Vo l]Ordered By: Reinaldo Amor on 10-04-2021 Neutrophils (Bld) [#/Vol] 6.9 10*3/uL 1.8-7.7 [facility] Neutrophils/100 WBC Auto (Bl d)Ordered By: Reinaldo Amor on 10-04-2021 Neutrophils/100 WBC (Bld) 66.2 % . [facility] No Panel InformationOrdered By: Reinaldo Amor on 10-04-2021 Estimated GFR () > 60 mL/Min [facility] Comment on above: GFR estimated refere nce range: According to KDOQI guidelines, <60 ml/min/1.73m2 is sufficient to diagnose a patient with chronic kidney disease. Pharmacy Creatinine Clearance (Chem 71.30 [facility] Platelet mean volume Auto (B ld) [Entitic vol]Ordered By: Reinaldo Amor on 10-04-2021 Platelet mean volume (Bld) [Entitic vol] 8.0 fL 6.3-10.7 [facility] Platelets Auto (Bld) [#/Vol] Ordered By: Reinaldo Amor on 10-04-2021 Platelets (Bld) [#/Vol] 268 10*3/uL 150-450 [facility] Protein Auto test strip (U) [Mass/Vol]Ordered By: Reinaldo Amor on 10-04-2021 Protein (U) [Mass/Vol] Negative Negative [facility] Protein [Mass/volume] in Ser um or PlasmaOrdered By: Reinaldo Amor on 10-04-2021 Protein [Mass/Vol] 6.2 g/dL 6.1-7.9 [facility] RBC Auto (Bld) [#/Vol]Ordere d By: Reinaldo Amor on 10-04-2021 RBC (Bld) [#/Vol] 4.26 10*6/uL 3.60-5.00 [facility] Serum or plasma alanine hughes otransferase measurement without P-5'-P (enzymatic activiOrdered By: Reinaldo Amor on 10-04-2021 ALT No additional P-5'-P [Catalytic activity/Vol] 15 U/L 10-60 [facility] Serum or plasma albumin/glob ulin mass ratioOrdered By: Reinaldo Amor on 10-04-2021 Albumin/Globulin [Mass ratio] 1.4 {ratio} [facility] Serum or plasma alkaline jaqueline sphatase measurement (enzymatic activity/volume)Ordered By: Reinaldo Amor on 10-04-2021 ALP [Catalytic activity/Vol] 103 U/L 32-92 [facility] Serum or plasma amylase priscilla urement (enzymatic activity/volume)Ordered By: Reinaldo Amor on 10-04-2021 Amylase [Catalytic activity/Vol] 134 U/L 28-100 [facility] Serum or plasma aspartate am inotransferase measurement (enzymatic activity/volume)Ordered By: Reinaldo Amor on 10-04-2021 AST [Catalytic activity/Vol] 20 U/L 10-42 [facility] Serum or plasma calcium priscilla urement (mass/volume)Ordered By: Reinaldo Amor on 10-04-2021 Calcium [Mass/Vol] 9.6 mg/dL 8.2-10.2 [facility] Serum or plasma chloride daron surement (moles/volume)Ordered By: Reinaldo Amor on 10-04-2021 Chloride [Moles/Vol] 103 mmol/L 95-114 [facility] Serum or plasma ethanol priscilla urement (mass/volume)Ordered By: Reinaldo Amor on 10-04-2021 Ethanol [Mass/Vol] mg/dL [facility] Ethanol [Mass/Vol] TNP [facility] Comment on above: Test not performed Serum or plasma glucose priscilla urement (mass/volume)Ordered By: Reinaldo Amor on 10-04-2021 Glucose [Mass/Vol] 120 mg/dL 70-100 [facility] Comment on above: ADA recommended refe rence range Random Glucose Reference Range is dependent on time and content of last meal. Glucose of more than 200 mg/dL in a nonstressed, ambulatory subject supports the diagnosis of Diabetes Mellitus. Serum or plasma non-glucuron idated bilirubin measurement (mass/volume)Ordered By: Reinaldo Amor on 10-04-2021 Bilirubin.indirect [Mass/Vol] TNP [facility] Comment on above: Test not performed Serum or plasma potassium me asurement (moles/volume)Ordered By: Reinaldo Amor on 10-04-2021 Potassium [Moles/Vol] 3.7 mmol/L 3.5-5.1 [facility] Serum or plasma sodium measu rement (moles/volume)Ordered By: Reinaldo Amor on 10-04-2021 Sodium [Moles/Vol] 137 mmol/L 136-146 [facility] Serum or plasma total biliru bin measurement (mass/volume)Ordered By: Reinaldo Amor on 10-04-2021 Bilirubin [Mass/Vol] 0.5 mg/dL 0.3-1.2 [facility] Serum or plasma total carbon dioxide measurement (moles/volume)Ordered By: Reinaldo Amor on 10-04-2021 CO2 [Moles/Vol] 24.9 mmol/L 22.0-30.0 [facility] Serum or plasma urea nitroge n measurement (mass/volume)Ordered By: Reinaldo Amor on 10-04-2021 Urea nitrogen [Mass/Vol] 7 mg/dL 9-23 [facility] Urine appearanceOrdered By: Reinaldo Amor on 10-04-2021 Appearance (U) Clear Clear [facility] Urine colorOrdered By: Ml Amor on 10-04-2021 Color (U) Yellow Yellow [facility] Urine glucose measurement by automated test strip (mass/volume)Ordered By: Reinaldo Amor on 10-04-2021 Glucose Auto test strip (U) [Mass/Vol] Normal mg/dL Normal [facility] Urine hemoglobin detection b y automated test stripOrdered By: Reinaldo Amor on 10-04-2021 Hemoglobin Auto test strip Ql (U) Negative Negative [facility] Urine leukocyte esterase det ection by automated test stripOrdered By: Reinaldo Amor on 10-04-2021 Leukocyte esterase Auto test strip Ql (U) Negative Negative [facility] Urine nitrite detection by a utomated test stripOrdered By: Reinaldo Amor on 10-04-2021 Nitrite Auto test strip Ql (U) Negative Negative [facility] Urobilinogen Auto test strip (U) [Mass/Vol]Ordered By: Reinaldo Amor on 10-04-2021 Urobilinogen (U) [Mass/Vol] Normal mg/dL Normal [facility] pH Auto test strip (U)Ordere d By: Reinaldo Amor on 10-04-2021 pH (U) 1.030 [pH] 1.001-1.03 0 [facility] pH (U) 5.5 [pH] 5.0-9.0 [facility] Basophils Auto (Bld) [#/Vol] Ordered By: Reinaldo Amor on 09-25-2021 Basophils (Bld) [#/Vol] 0.1 10*3/uL 0.0-0.2 [facility] Basophils/100 WBC Auto (Bld) Ordered By: Reinaldo Amor on 09-25-2021 Basophils/100 WBC (Bld) 1.2 % . [facility] Blood hemoglobin measurement (mass/volume)Ordered By: Reinaldo Amor on 09-25-2021 Hemoglobin (Bld) [Mass/Vol] 14.2 g/dL 11.8-15.4 [facility] Blood leukocytes automated c ount (number/volume)Ordered By: Reinaldo Amor on 09-25-2021 WBC (Bld) [#/Vol] 9.3 10*3/uL 4.5-11.0 [facility] Body fluid albumin measureme nt (mass/volume)Ordered By: PROVIDER JONATHAN on 09-25-2021 Albumin (Body fld) [Mass/Vol] 4.3 g/dL 3.2-5.5 [facility] Creatinine and Glomerular fi ltration rate.predicted panel (S/P/Bld)Ordered By: PROVIDER JONATHAN on 09-25-2021 Creatinine [Mass/Vol] 0.82 mg/dL 0.44-1.03 [facility] Eosinophils Auto (Bld) [#/Vo l]Ordered By: Reinaldo Amor on 09-25-2021 Eosinophils (Bld) [#/Vol] 0.2 10*3/uL 0.0-0.45 [facility] Eosinophils/100 WBC Auto (Bl d)Ordered By: Reinaldo Amor on 07-20-2022 Eosinophils/100 WBC (Bld) 1.9 % . [facility] Erythrocyte distribution wid th Auto (RBC) [Ratio]Ordered By: Reianldo Amor on 09-25-2021 Erythrocyte distribution width (RBC) [Ratio] 13.7 % 11.9-15.3 [facility] Estimated glomerular filtrat ion rate (GFR) non- AmericanOrdered By: PROVIDER TEMP on 09-25-2021 GFR/1.73 sq M.predicted among non-blacks MDRD (S/P/Bld) [Vol rate/Area] > 60 mL/Min [facility] Globulin Calc (S) [Mass/Vol] Ordered By: PROVIDER TEMP on 09-25-2021 Globulin (S) [Mass/Vol] 3.3 g/dL [facility] Hematocrit Auto (Bld) [Volum e fraction]Ordered By: Reinaldo Amor on 09-25-2021 Hematocrit (Bld) [Volume fraction] 42.1 % 34.0-46.4 [facility] Laboratory - Chemistry and C hemistry - challengeOrdered By: Reinaldo Amor on 09-25-2021 Lipase [Catalytic activity/Vol] 64.0 U/L 22-51 [facility] Laboratory - Hematology and Cell countsOrdered By: Reinaldo Amor on 09-25-2021 Nucleated RBC/100 WBC (Bld) [Ratio] 0.1 % 0-0.5 [facility] Lymphocytes Auto (Bld) [#/Vo l]Ordered By: Reinaldo Amor on 09-25-2021 Lymphocytes (Bld) [#/Vol] 2.6 10*3/uL 1.00-4.8 [facility] Lymphocytes/100 WBC Auto (Bl d)Ordered By: Reinaldo Amor on 09-25-2021 Lymphocytes/100 WBC (Bld) 28.1 % . [facility] MCH Auto (RBC) [Entitic mass ]Ordered By: Reinaldo Amor on 09-25-2021 MCH (RBC) [Entitic mass] 32.5 pg 24.7-34.3 [facility] MCHC Auto (RBC) [Mass/Vol]Or dered By: Reinaldo Amor on 09-25-2021 MCHC (RBC) [Mass/Vol] 33.7 g/dL 32.0-35.0 [facility] MCV Auto (RBC) [Entitic vol] Ordered By: Reinaldo Amor on 09-25-2021 MCV (RBC) [Entitic vol] 96.7 fL 80-100 [facility] Monocytes Auto (Bld) [#/Vol] Ordered By: Reinaldo Amor on 09-25-2021 Monocytes (Bld) [#/Vol] 0.8 10*3/uL 0.0-0.8 [facility] Monocytes/100 WBC Auto (Bld) Ordered By: Reinaldo Amor on 09-25-2021 Monocytes/100 WBC (Bld) 8.2 % . [facility] Neutrophils Auto (Bld) [#/Vo l]Ordered By: Reinaldo Amor on 09-25-2021 Neutrophils (Bld) [#/Vol] 5.6 10*3/uL 1.8-7.7 [facility] Neutrophils/100 WBC Auto (Bl d)Ordered By: Reinaldo Amor on 09-25-2021 Neutrophils/100 WBC (Bld) 60.6 % . [facility] No Panel InformationOrdered By: PROVIDER TEMP on 09-25-2021 Estimated GFR () > 60 mL/Min [facility] Comment on above: GFR estimated refere nce range: According to KDOQI guidelines, <60 ml/min/1.73m2 is sufficient to diagnose a patient with chronic kidney disease. Pharmacy Creatinine Clearance (Chem 63.47 [facility] Platelet mean volume Auto (B ld) [Entitic vol]Ordered By: Reinaldo Amor on 09-25-2021 Platelet mean volume (Bld) [Entitic vol] 8.6 fL 6.3-10.7 [facility] Platelets Auto (Bld) [#/Vol] Ordered By: Reinaldo Amor on 09-25-2021 Platelets (Bld) [#/Vol] 221 10*3/uL 150-450 [facility] Protein [Mass/volume] in Ser um or PlasmaOrdered By: PROVIDER TEMP on 09-25-2021 Protein [Mass/Vol] 7.6 g/dL 6.1-7.9 [facility] RBC Auto (Bld) [#/Vol]Ordere d By: Reinaldo Amor on 09-25-2021 RBC (Bld) [#/Vol] 4.35 10*6/uL 3.60-5.00 [facility] Serum or plasma alanine hughes otransferase measurement without P-5'-P (enzymatic activiOrdered By: PROVIDER TEMP on 09-25-2021 ALT No additional P-5'-P [Catalytic activity/Vol] 14 U/L 10-60 [facility] Serum or plasma albumin/glob ulin mass ratioOrdered By: PROVIDER TEMP on 09-25-2021 Albumin/Globulin [Mass ratio] 1.3 {ratio} [facility] Serum or plasma alkaline jaqueline sphatase measurement (enzymatic activity/volume)Ordered By: PROVIDER TEMP on 09-25-2021 ALP [Catalytic activity/Vol] 127 U/L 32-92 [facility] Serum or plasma amylase priscilla urement (enzymatic activity/volume)Ordered By: Reinaldo Amor on 09-25-2021 Amylase [Catalytic activity/Vol] 171 U/L 28-100 [facility] Serum or plasma aspartate am inotransferase measurement (enzymatic activity/volume)Ordered By: PROVIDER TEMP on 09-25-2021 AST [Catalytic activity/Vol] 21 U/L 10-42 [facility] Serum or plasma calcium priscilla urement (mass/volume)Ordered By: PROVIDER TEMP on 09-25-2021 Calcium [Mass/Vol] 10.1 mg/dL 8.2-10.2 [facility] Serum or plasma chloride daron surement (moles/volume)Ordered By: PROVIDER TEMP on 09-25-2021 Chloride [Moles/Vol] 103 mmol/L 95-114 [facility] Serum or plasma glucose priscilla urement (mass/volume)Ordered By: PROVIDER TEMP on 09-25-2021 Glucose [Mass/Vol] 93 mg/dL 70-100 [facility] Comment on above: ADA recommended refe rence range Random Glucose Reference Range is dependent on time and content of last meal. Glucose of more than 200 mg/dL in a nonstressed, ambulatory subject supports the diagnosis of Diabetes Mellitus. Serum or plasma potassium me asurement (moles/volume)Ordered By: PROVIDER TEMP on 09-25-2021 Potassium [Moles/Vol] 3.9 mmol/L 3.5-5.1 [facility] Serum or plasma sodium measu rement (moles/volume)Ordered By: PROVIDER TEMP on 09-25-2021 Sodium [Moles/Vol] 137 mmol/L 136-146 [facility] Serum or plasma total biliru bin measurement (mass/volume)Ordered By: PROVIDER TEMP on 09-25-2021 Bilirubin [Mass/Vol] 0.3 mg/dL 0.3-1.2 [facility] Serum or plasma total carbon dioxide measurement (moles/volume)Ordered By: PROVIDER TEMP on 09-25-2021 CO2 [Moles/Vol] 26.3 mmol/L 22.0-30.0 [facility] Serum or plasma urea nitroge n measurement (mass/volume)Ordered By: PROVIDER TEMP on 09-25-2021 Urea nitrogen [Mass/Vol] 8 mg/dL 9-23 [facility] AMYLASEon 09-17-2021 Amylase [Catalytic activity/Vol] 142 U/L Critically high 25-115 [facility] Comment on above: Performed By: #### A MY, CMP, LIPA ####[facility] [address] [place] [address]Dr. Keturah Fisher CBC AUTO DIFFon 09-17-2021 BASO # 0.1 103/ul Normal 0.0-0.1 [facility] Comment on above: Performed By: #### C BC ####[facility] [address] [place] [address]Dr. Keturah Fisher Basophils/100 WBC (Bld) 0.7 % Normal 0.2-2.0 [facility] Comment on above: Performed By: #### C BC ####[facility] [address] [place] [address]DrGopal Fisher EO # 0.1 103/ul Normal 0.0-0.7 [facility] Comment on above: Performed By: #### C BC ####[facility] [address] [place] [address]DrGopal Fisher Eosinophils/100 WBC (Bld) 1.3 % Normal 0.9-7.0 [facility] Comment on above: Performed By: #### C BC ####[facility] [address] [place] [address]Dr. Keturah Fisher Erythrocyte distribution width (RBC) [Ratio] 13.2 % Normal 11.0-15.0 [facility] Comment on above: Performed By: #### C BC ####[facility] [address] [place], [place] [address]Dr. Elisaeli Phillip Hematocrit (Bld) [Volume fraction] 43.7 % Normal 36.0-48.0 [facility] Comment on above: Performed By: #### C BC ####[facility] [address] [place], [place] [address]Dr. Keturah Fisher Hemoglobin (Bld) [Mass/Vol] 14.7 g/dL Normal 12.0-16.0 [facility] Comment on above: Performed By: #### C BC ####[facility] [address] [place], [place] [address]Dr. Keturah Fisher IG # 0.01 10e3/ul Normal 0.00-0.03 [facility] Comment on above: Performed By: #### C BC ####[facility] [address] [place], [place] [address]Dr. Keturah Fisher IG % 0.1 % Normal 0.0-0.5 [facility] Comment on above: Performed By: #### C BC ####[facility] [address] [place], [place] [address]Dr. Keturah Fisher LYMPH # 2.7 103/ul Normal 1.2-3.8 [facility] Comment on above: Performed By: #### C BC ####[facility] [address] [place], [place] [address]Dr. Keturah Fisher Lymphocytes/100 WBC (Bld) 30.1 % Normal 20.5-60.0 [facility] Comment on above: Performed By: #### C BC ####[facility] [address] [place], [place] [address]Dr. Keturah Fisher MANUAL DIFF REQ NO Normal [facility] Comment on above: Performed By: #### C BC ####[facility] [address] [place] [address]DrGopal Keturah Phillip MCH (RBC) [Entitic mass] 32.4 pg Normal 26.7-34.0 [facility] Comment on above: Performed By: #### C BC ####[facility] [address] [place] [address]DrGopal Fisher MCHC (RBC) [Mass/Vol] 33.6 g/dL Normal 29.9-35.2 [facility] Comment on above: Performed By: #### C BC ####[facility] [address] [place] [address]DrGopal Fisher MCV (RBC) [Entitic vol] 96.3 fL Normal 81.0-99.0 [facility] Comment on above: Performed By: #### C BC ####[facility] [address] [place], [place] [address]DrGopal Fisher MONO # 0.8 103/ul Normal 0.3-0.8 [facility] Comment on above: Performed By: #### C BC ####[facility] [address] [place], [place] [address]DrGopal Fisher Monocytes/100 WBC (Bld) 8.7 % Normal 1.7-12.0 [facility] Comment on above: Performed By: #### C BC ####[facility] [address] [place], [place] [address]DrGopal Fisher NEUT # 5.4 103/ul Normal 1.4-6.5 [facility] Comment on above: Performed By: #### C BC ####[facility] [address] [place], [place] [address]DrGopal Fisher Neutrophils/100 WBC (Bld) 59.1 % Normal 43.0-75.0 [facility] Comment on above: Performed By: #### C BC ####[facility] [address] [place], [place] [address]DrGopal Fisher Platelet mean volume (Bld) [Entitic vol] 9.6 fL Normal 9.5-13.5 [facility] Comment on above: Performed By: #### C BC ####[facility] [address] [place] [id number] Fisher PLT 272 103/ul Normal 150-450 [facility] Comment on above: Performed By: #### C BC ####[facility] [address] [place] [id number]. Keturah Fisher RBC 4.54 106/ul Normal 4.20-5.40 [facility] Comment on above: Performed By: #### C BC ####[facility] [address] [place] [id number]. Keturah Fisher WBC 9.1 103/ul Normal 4.0-11.0 [facility] Comment on above: Performed By: #### C BC ####[facility] [address] [place] [id number]. Keturah Fisher ETHANOL (BLD ALC)on 09-18-19 22 ALC NOTE NOTE: 80 mg/dl is th e legal limit for a blood alcohol level Normal [facility] Comment on above: Performed By: #### L IPA, CMP, CRP, NAT #### [facility] [address] [place] [address] [address] Keturah Fisher Ethanol [Mass/Vol] mg/dL Normal [facility] Comment on above: Performed By: #### L IPA, CMP, CRP, NAT #### [facility] [address] [address] [address] Keturah Fisher LIPASEon 09-17-2021 Lipase [Catalytic activity/Vol] 524.0 U/L Critically high 73.0-393.0 [facility] Comment on above: Performed By: #### C BC #### [facility] [address] [address] [address] Keturah Fisher PROF 14(COMP METB)on 022 Albumin [Mass/Vol] 3.9 g/dL Normal 3.4-5.0 [facility] Comment on above: Performed By: #### C BC #### [facility] [address] [place] [address] Dr. Keturah Fisher Albumin/Globulin [Mass ratio] 1.1 {ratio} Normal [facility] Comment on above: Performed By: #### C BC #### [facility] [address] [place] [address] Dr. Keturah Fisher ALP [Catalytic activity/Vol] 136 U/L Critically high 46-116 [facility] Comment on above: Performed By: #### C BC #### [facility] [address] [place] [address] Dr. Keturah Fisher ALT [Catalytic activity/Vol] 21 U/L Normal 14-59 [facility] Comment on above: Performed By: #### C BC #### [facility] [address] [place] [address] Dr. Keturah Fihser Anion gap [Moles/Vol] 12.7 mmol/L Normal [facility] Comment on above: Performed By: #### C BC #### [facility] [address] [place] [address] Dr. Keturah Fisher AST [Catalytic activity/Vol] 16 U/L Normal 15-37 [facility] Comment on above: Performed By: #### C BC #### [facility] [address] [place] [address] Dr. Keturah Fisher Bilirubin [Mass/Vol] 0.2 mg/dL Normal 0.2-1.0 [facility] Comment on above: Performed By: #### C BC #### [facility] [address] [place] [address] Dr. Keturah Fisher Calcium [Mass/Vol] 9.9 mg/dL Normal 8.5-10.1 [facility] Comment on above: Performed By: #### C BC #### [facility] [address] [place] [address] Dr. Keturah Fisher Chloride [Moles/Vol] 106 mmol/L Normal 98-107 [facility] Comment on above: Performed By: #### C BC #### [facility] [address] [place] [address] Dr. Keturah Fisher CO2 [Moles/Vol] 25.9 mmol/L Normal 21.0-32.0 [facility] Comment on above: Performed By: #### C BC #### [facility] [address] [address] [address] Keturah Fisher Creatinine [Mass/Vol] 0.96 mg/dL Normal 0.55-1.02 [facility] Comment on above: Performed By: #### C BC #### [facility] [address] [address] [address] Keturah Fisher EGFR-AF DOMINICAN >60 Normal >=60 [facility] Comment on above: Performed By: #### C BC #### [facility] [address] [place] [address] Dr. Keturah Fisher EGFR-NON AF DOMINICAN >60 Normal >=60 [facility] Comment on above: Performed By: #### C BC #### [facility] [address] [place] [address] Dr. Keturah Fisher Globulin (S) [Mass/Vol] 3.5 g/dL Normal [facility] Comment on above: Performed By: #### C BC #### [facility] [address] [address] [address] Keturah Fisher Glucose [Mass/Vol] 113 mg/dL Critically high 74-106 [facility] Comment on above: Performed By: #### C BC #### [facility] [address] [place] [address] Dr. Keturah Fisher Potassium [Moles/Vol] 3.6 mmol/L Normal 3.5-5.1 [facility] Comment on above: Performed By: #### C BC #### [facility] [address] [address] [address] Keturah Fisher Protein [Mass/Vol] 7.4 g/dL Normal 6.4-8.2 [facility] Comment on above: Performed By: #### C BC #### [facility] [address] [place] [address] Dr. Keturah Fisher Sodium [Moles/Vol] 141 mmol/L Normal 136-145 [facility] Comment on above: Performed By: #### C BC #### [facility] [address] [address] [address] Keturah Fisher Urea nitrogen [Mass/Vol] 8.0 mg/dL Normal 7.0-18.0 [facility] Comment on above: Performed By: #### C BC #### [facility] [address] [address] [address] Keturah Fisher Urea nitrogen/Creatinine [Mass ratio] 8.3 mg/mg Normal [facility] Comment on above: Performed By: #### C BC #### [facility] [address] [address] [address] Keturah Fisher AMYLASEon 08-26-2021 Amylase [Catalytic activity/Vol] 94 U/L Normal 25-115 [facility] Comment on above: Performed By: #### A MY, CMP, LIPA ####[facility] [address] [place] [address]Dr. Keturah Fisher CBC AUTO DIFFon 08-26-2021 BASO # 0.1 103/ul Normal 0.0-0.1 [facility] Comment on above: Performed By: #### L IPA, CMP, CRP, NAT #### [facility] [address] [place] [address] Dr. Keturah Fisher Basophils/100 WBC (Bld) 0.7 % Normal 0.2-2.0 [facility] Comment on above: Performed By: #### L IPA, CMP, CRP, NAT #### [facility] [address] [address] [address] Keturah Fisher EO # 0.2 103/ul Normal 0.0-0.7 [facility] Comment on above: Performed By: #### L IPA, CMP, CRP, NAT #### [facility] [address] [place] [address] Dr. Keturah Fisher Eosinophils/100 WBC (Bld) 2.5 % Normal 0.9-7.0 [facility] Comment on above: Performed By: #### L IPA, CMP, CRP, NAT #### [facility] [address] [place] [address] Dr. Keturah Fisher Erythrocyte distribution width (RBC) [Ratio] 13.1 % Normal 11.0-15.0 [facility] Comment on above: Performed By: #### L IPA, CMP, CRP, NAT #### [facility] [address] [address] [address] Keturah Fisher Hematocrit (Bld) [Volume fraction] 42.4 % Normal 36.0-48.0 [facility] Comment on above: Performed By: #### L IPA, CMP, CRP, NAT #### [facility] [address] [address] [address] Keturah Fisher Hemoglobin (Bld) [Mass/Vol] 14.1 g/dL Normal 12.0-16.0 [facility] Comment on above: Performed By: #### L IPA, CMP, CRP, NAT #### [facility] [address] [address] [address] Keturah Fisher IG # 0.03 10e3/ul Normal 0.00-0.03 [facility] Comment on above: Performed By: #### L IPA, CMP, CRP, NAT #### [facility] [address] [address] [address] Keturah Fisher IG % 0.3 % Normal 0.0-0.5 [facility] Comment on above: Performed By: #### L IPA, CMP, CRP, NAT #### [facility] [address] [address] [address] Keturah Fisher LYMPH # 2.6 103/ul Normal 1.2-3.8 [facility] Comment on above: Performed By: #### L IPA, CMP, CRP, NAT #### [facility] [address] [address] [address] Keturah Fisher Lymphocytes/100 WBC (Bld) 27.7 % Normal 20.5-60.0 [facility] Comment on above: Performed By: #### L IPA, CMP, CRP, NAT #### [facility] [address] [address] [address] Keturah Fisher MANUAL DIFF REQ NO Normal [facility] Comment on above: Performed By: #### L IPA, CMP, CRP, NAT #### [facility] [address] [place] [address] Dr. Keturah Fisher MCH (RBC) [Entitic mass] 32.6 pg Normal 26.7-34.0 [facility] Comment on above: Performed By: #### L IPA, CMP, CRP, NAT #### [facility] [address] [place] [address] Dr. Keturah Fisher MCHC (RBC) [Mass/Vol] 33.3 g/dL Normal 29.9-35.2 [facility] Comment on above: Performed By: #### L IPA, CMP, CRP, NAT #### [facility] [address] [place] [address] Dr. Keturah Fisher MCV (RBC) [Entitic vol] 97.9 fL Normal 81.0-99.0 [facility] Comment on above: Performed By: #### L IPA, CMP, CRP, NAT #### [facility] [address] [place] [address] Dr. Keturah Fisher MONO # 1.2 103/ul Critically high 0.3-0.8 [facility] Comment on above: Performed By: #### L IPA, CMP, CRP, NAT #### [facility] [address] [place] [address] Dr. Keturah Fisher Monocytes/100 WBC (Bld) 12.9 % Critically high 1.7-12.0 [facility] Comment on above: Performed By: #### L IPA, CMP, CRP, NAT #### [facility] [address] [place] [address] Dr. Keturah Fisher NEUT # 5.3 103/ul Normal 1.4-6.5 [facility] Comment on above: Performed By: #### L IPA, CMP, CRP, NAT #### [facility] [address] [place] [address] Dr. Keturah Fisher Neutrophils/100 WBC (Bld) 55.9 % Normal 43.0-75.0 [facility] Comment on above: Performed By: #### L IPA, CMP, CRP, NAT #### [facility] [address] [address] [address] Keturah Fisher Platelet mean volume (Bld) [Entitic vol] 9.8 fL Normal 9.5-13.5 [facility] Comment on above: Performed By: #### L IPA, CMP, CRP, NAT #### [facility] [address] [address] [address] Keturah Fisher PLT 229 103/ul Normal 150-450 [facility] Comment on above: Performed By: #### L IPA, CMP, CRP, NAT #### [facility] [address] [address] [address] Keturah Fisher RBC 4.33 106/ul Normal 4.20-5.40 [facility] Comment on above: Performed By: #### L IPA, CMP, CRP, NAT #### [facility] [address] [address] [address] Keturah Fisher WBC 9.5 103/ul Normal 4.0-11.0 [facility] Comment on above: Performed By: #### L IPA, CMP, CRP, NAT #### [facility] [address] [address] [address] Keturah Fisher LIPASEon 08-26-2021 Lipase [Catalytic activity/Vol] 146.0 U/L Normal 73.0-393.0 [facility] Comment on above: Performed By: #### A MY, CMP, LIPA ####[facility] [address] [place] [address]Dr. Keturah Fisher PROF 14(COMP METB)on 022 Albumin [Mass/Vol] 3.5 g/dL Normal 3.4-5.0 [facility] Comment on above: Performed By: #### A MY, CMP, LIPA ####[facility] [address] [place] [address]Dr. Keturah Fisher Albumin/Globulin [Mass ratio] 1.1 {ratio} Normal [facility] Comment on above: Performed By: #### A MY, CMP, LIPA ####[facility] [address] [place] [address]Dr. Keturah Fisher ALP [Catalytic activity/Vol] 139 U/L Critically high 46-116 [facility] Comment on above: Performed By: #### A MY, CMP, LIPA ####[facility] [address] [place] [address]Dr. Keturah Fisher ALT [Catalytic activity/Vol] 21 U/L Normal 14-59 [facility] Comment on above: Performed By: #### A MY, CMP, LIPA ####[facility] [address] [place] [address]Dr. Keturah Fisher Anion gap [Moles/Vol] 11.4 mmol/L Normal [facility] Comment on above: Performed By: #### A MY, CMP, LIPA ####[facility] [address] [place] [address]Dr. Keturah Fisher AST [Catalytic activity/Vol] 21 U/L Normal 15-37 [facility] [facility] Comment on above: Performed By: #### A MY, CMP, LIPA ####[facility] [address] [place] [address]Dr. Keturah Fisher Bilirubin [Mass/Vol] 0.2 mg/dL Normal 0.2-1.0 [facility] Comment on above: Performed By: #### A MY, CMP, LIPA ####[facility] [address] [place] [address]Dr. Keturah Fisher Calcium [Mass/Vol] 9.2 mg/dL Normal 8.5-10.1 [facility] Comment on above: Performed By: #### A MY, CMP, LIPA ####[facility] [address] [place] [address]Dr. Keturah Fisher Chloride [Moles/Vol] 107 mmol/L Normal 98-107 [facility] Comment on above: Performed By: #### A MY, CMP, LIPA ####[facility] [address] [place] [address]Dr. Keturah Fisher CO2 [Moles/Vol] 27.9 mmol/L Normal 21.0-32.0 [facility] Comment on above: Performed By: #### A MY, CMP, LIPA ####[facility] [address] [place] [id number]. Keturah Fisher Creatinine [Mass/Vol] 0.84 mg/dL Normal 0.55-1.02 [facility] Comment on above: Performed By: #### A MY, CMP, LIPA ####[facility] [address] [place] [address]Dr. Keturah Fisher EGFR-AF DOMINICAN >60 Normal >=60 [facility] Comment on above: Performed By: #### A MY, CMP, LIPA ####[facility] [address] [place] [address]Dr. Keturah Fisher EGFR-NON AF DOMINICAN >60 Normal >=60 [facility] Comment on above: Performed By: #### A MY, CMP, LIPA ####[facility] [address] [place] [address]Dr. Keturah Fisher Globulin (S) [Mass/Vol] 3.3 g/dL Normal [facility] Comment on above: Performed By: #### A MY, CMP, LIPA ####[facility] [address] [place], [place] [address]Dr. Keturah Fisher Glucose [Mass/Vol] 106 mg/dL Normal 74-106 [facility] Comment on above: Performed By: #### A MY, CMP, LIPA ####[facility] [address] [place] [address]Dr. Keturah Fisher Potassium [Moles/Vol] 4.3 mmol/L Normal 3.5-5.1 [facility] Comment on above: Performed By: #### A MY, CMP, LIPA ####[facility] [address] [place] [address]Dr. Keturah Fisher Protein [Mass/Vol] 6.8 g/dL Normal 6.4-8.2 [facility] Comment on above: Performed By: #### A MY, CMP, LIPA ####[facility] [address] [place] [address]Dr. Keturah Fisher Sodium [Moles/Vol] 142 mmol/L Normal 136-145 [facility] Comment on above: Performed By: #### A MY, CMP, LIPA ####[facility] [address] [place], [place] [address]Ai. Keturah Fisher Urea nitrogen [Mass/Vol] 11.0 mg/dL Normal 7.0-18.0 [facility] Comment on above: Performed By: #### A MY, CMP, LIPA ####[facility] [address] [place], [place] [address]Fe. Keturah Fisher Urea nitrogen/Creatinine [Mass ratio] 13.1 mg/mg Normal [facility] Comment on above: Performed By: #### A MY, CMP, LIPA ####[facility] [address] [place], [place] [address]Ce. Keturah Fisher XR ABD FLAT UP_PA Jorje [...] MILADIS BARRERA Date: 2021-08-26 04:59 Normal [facility] AMYLASEon 08-22-2021 Amylase [Catalytic activity/Vol] 155 U/L Critically high 25-115 [facility] Comment on above: Performed By: #### C MP, NAT, LIPA #### [facility] [address] [address] [address] Keturah Fisher CBC AUTO DIFFon 08-22-2021 BASO # 0.1 103/ul Normal 0.0-0.1 [facility] Comment on above: Performed By: #### L IPA, CMP, CRP, NAT #### [facility] [address] [place] [address] Dr. Keturah Fisher Basophils/100 WBC (Bld) 0.7 % Normal 0.2-2.0 [facility] Comment on above: Performed By: #### L IPA, CMP, CRP, NAT #### [facility] [address] [place] [address] Dr. Keturah Fisher EO # 0.1 103/ul Normal 0.0-0.7 [facility] Comment on above: Performed By: #### L IPA, CMP, CRP, NAT #### [facility] [address] [place] [address] Dr. Keturah Fisher Eosinophils/100 WBC (Bld) 0.7 % Critically low 0.9-7.0 [facility] Comment on above: Performed By: #### L IPA, CMP, CRP, NAT #### [facility] [address] [place] [address] Dr. Keturah Fisher Erythrocyte distribution width (RBC) [Ratio] 13.2 % Normal 11.0-15.0 [facility] Comment on above: Performed By: #### L IPA, CMP, CRP, NAT #### [facility] [address] [place] [address] Dr. Keturah Fisher Hematocrit (Bld) [Volume fraction] 41.1 % Normal 36.0-48.0 [facility] Comment on above: Performed By: #### L IPA, CMP, CRP, NAT #### [facility] [address] [place] [address] Dr. Keturah Fisher Hemoglobin (Bld) [Mass/Vol] 13.8 g/dL Normal 12.0-16.0 [facility] Comment on above: Performed By: #### L IPA, CMP, CRP, NAT #### [facility] [address] [place] [address] Dr. Keturah Fisher IG # 0.03 10e3/ul Normal 0.00-0.03 [facility] Comment on above: Performed By: #### L IPA, CMP, CRP, NAT #### [facility] [address] [place] [address] Dr. Keturah Fisher IG % 0.2 % Normal 0.0-0.5 [facility] Comment on above: Performed By: #### L IPA, CMP, CRP, NAT #### [facility] [address] [place] [address] Dr. Keturah Fisher LYMPH # 2.6 103/ul Normal 1.2-3.8 [facility] Comment on above: Performed By: #### L IPA, CMP, CRP, NAT #### [facility] [address] [place] [address] Dr. Keturah Fisher Lymphocytes/100 WBC (Bld) 21.4 % Normal 20.5-60.0 [facility] Comment on above: Performed By: #### L IPA, CMP, CRP, NAT #### [facility] [address] [place] [address] Dr. Keturah Fisher MANUAL DIFF REQ NO Normal [facility] Comment on above: Performed By: #### L IPA, CMP, CRP, NAT #### [facility] [address] [place] [address] Dr. Keturah Fisher MCH (RBC) [Entitic mass] 32.2 pg Normal 26.7-34.0 [facility] Comment on above: Performed By: #### L IPA, CMP, CRP, NAT #### [facility] [address] [place] [address] Dr. Keturah Fisher MCHC (RBC) [Mass/Vol] 33.6 g/dL Normal 29.9-35.2 [facility] Comment on above: Performed By: #### L IPA, CMP, CRP, NAT #### [facility] [address] [place] [address] Dr. Keturah Fisher MCV (RBC) [Entitic vol] 95.8 fL Normal 81.0-99.0 [facility] Comment on above: Performed By: #### L IPA, CMP, CRP, NAT #### [facility] [address] [address] [address] Keturah Fisher MONO # 0.9 103/ul Critically high 0.3-0.8 [facility] Comment on above: Performed By: #### L IPA, CMP, CRP, NAT #### [facility] [address] [place] [address] Dr. Keturah Fisher Monocytes/100 WBC (Bld) 7.6 % Normal 1.7-12.0 [facility] Comment on above: Performed By: #### L IPA, CMP, CRP, NAT #### [facility] [address] [place] [address] Dr. Keturah Fisher NEUT # 8.5 103/ul Critically high 1.4-6.5 [facility] Comment on above: Performed By: #### L IPA, CMP, CRP, NAT #### [facility] [address] [place] [address] Dr. Keturah Fisher Neutrophils/100 WBC (Bld) 69.4 % Normal 43.0-75.0 [facility] Comment on above: Performed By: #### L IPA, CMP, CRP, NAT #### [facility] [address] [place] [address] Dr. Keturah Fisher Platelet mean volume (Bld) [Entitic vol] 9.5 fL Normal 9.5-13.5 [facility] Comment on above: Performed By: #### L IPA, CMP, CRP, NAT #### [facility] [address] [place] [address] Dr. Keturah Fisher PLT 261 103/ul Normal 150-450 [facility] Comment on above: Performed By: #### L IPA, CMP, CRP, NAT #### [facility] [address] [place] [address] Dr. Keturah Fisher RBC 4.29 106/ul Normal 4.20-5.40 [facility] Comment on above: Performed By: #### L IPA, CMP, CRP, NAT #### [facility] [address] [place] [address] Dr. Keturah Fisher WBC 12.2 103/ul Critically high 4.0-11.0 [facility] Comment on above: Performed By: #### L IPA, CMP, CRP, NAT #### [facility] [address] [place] [address] Dr. Keturah Fisher LIPASEon 08-22-2021 Lipase [Catalytic activity/Vol] 419.0 U/L Critically high 73.0-393.0 [facility] Comment on above: Performed By: #### C MP, NAT, LIPA #### [facility] [address] [place] [address] Dr. Keturah Fisher PROF 14(COMP METB)on 022 Albumin [Mass/Vol] 3.9 g/dL Normal 3.4-5.0 [facility] Comment on above: Performed By: #### C MP, NAT, LIPA #### [facility] [address] [place] [address] Dr. Keturah Fisher Albumin/Globulin [Mass ratio] 1.2 {ratio} Normal [facility] Comment on above: Performed By: #### C MP, NAT, LIPA #### [facility] [address] [place] [address] Dr. Keturah Fisher ALP [Catalytic activity/Vol] 137 U/L Critically high 46-116 [facility] Comment on above: Performed By: #### C MP, NAT, LIPA #### [facility] [address] [place] [address] Dr. Keturah Fisher ALT [Catalytic activity/Vol] 22 U/L Normal 14-59 [facility] Comment on above: Performed By: #### C MP, NAT, LIPA #### [facility] [address] [place] [address] Dr. Keturah Fisher Anion gap [Moles/Vol] 12.9 mmol/L Normal [facility] Comment on above: Performed By: #### C MP, NAT, LIPA #### [facility] [address] [place] [address] Dr. Keturah Fisher AST [Catalytic activity/Vol] 20 U/L Normal 15-37 [facility] Comment on above: Performed By: #### C MP, NAT, LIPA #### [facility] [address] [place] [address] Dr. Keturah Fisher Bilirubin [Mass/Vol] 0.2 mg/dL Normal 0.2-1.0 [facility] Comment on above: Performed By: #### C MP, NAT, LIPA #### [facility] [address] [place] [address] Dr. Keturah Fisher Calcium [Mass/Vol] 9.5 mg/dL Normal 8.5-10.1 [facility] Comment on above: Performed By: #### C MP, NAT, LIPA #### [facility] [address] [place] [address] Dr. Keturah Fisher Chloride [Moles/Vol] 104 mmol/L Normal 98-107 [facility] Comment on above: Performed By: #### C MP NAT, LIPA #### [facility] [address] [place] [address] Dr. Keturah Fisher CO2 [Moles/Vol] 23.7 mmol/L Normal 21.0-32.0 [facility] Comment on above: Performed By: #### C MP, NAT, LIPA #### [facility] [address] [place] [address] Dr. Keturah Fisher Creatinine [Mass/Vol] 0.85 mg/dL Normal 0.55-1.02 [facility] Comment on above: Performed By: #### C MP NAT, LIPA #### [facility] [address] [place] [address] Dr. Keturah Fisher EGFR-AF DOMINICAN >60 Normal >=60 [facility] Comment on above: Performed By: #### C MP, NAT, LIPA #### [facility] [address] [place] [address] Dr. Keturah Fisher EGFR-NON AF DOMINICAN >60 Normal >=60 [facility] Comment on above: Performed By: #### C MP, NAT, LIPA #### [facility] [address] [place] [address] Dr. Keturah Fisher Globulin (S) [Mass/Vol] 3.3 g/dL Normal [facility] Comment on above: Performed By: #### C NAT MEDEL, LIPA #### [facility] [address] [address] [address] Keturah Fisher Glucose [Mass/Vol] 130 mg/dL Critically high 74-106 [facility] Comment on above: Performed By: #### C LIZY NAT, LIPA #### [facility] [address] [address] [address] Keturah Fisher Potassium [Moles/Vol] 3.6 mmol/L Normal 3.5-5.1 [facility] Comment on above: Performed By: #### C NAT MEDEL, LIPA #### [facility] [address] [place] [address] Dr. Keturah Fisher Protein [Mass/Vol] 7.2 g/dL Normal 6.4-8.2 [facility] Comment on above: Performed By: #### C NAT MEDEL, LIPA #### [facility] [address] [place] [address] Dr. Keturah Fisher Sodium [Moles/Vol] 137 mmol/L Normal 136-145 [facility] Comment on above: Performed By: #### C NAT MEDEL, LIPA #### [facility] [address] [place] [address] Dr. Keturah Fisher Urea nitrogen [Mass/Vol] 9.0 mg/dL Normal 7.0-18.0 [facility] Comment on above: Performed By: #### C NAT MEDEL, LIPA #### [facility] [address] [place] [address] Dr. Keturah Fisher Urea nitrogen/Creatinine [Mass ratio] 10.6 mg/mg Normal [facility] Comment on above: Performed By: #### C NAT MEDEL, LIPA #### [facility] [address] [place] [address] Dr. Keturah Fisher XR ABD FLAT UP_PA [...] TRI HANSON Date: 2021-08-22 14:54 Normal [facility] CBC AUTO DIFFon 08-13-2021 BASO # 0.1 103/ul Normal 0.0-0.1 [facility] Comment on above: Performed By: #### C BC ####[facility] [address] [place], [place] [address]DrGopal Fisher Basophils/100 WBC (Bld) 0.6 % Normal 0.2-2.0 [facility] Comment on above: Performed By: #### C BC ####[facility] [address] [place], [place] [address]DrGopal Fisher EO # 0.1 103/ul Normal 0.0-0.7 [facility] Comment on above: Performed By: #### C BC ####[facility] [address] [place], [place] [address]DrGopal Fisher Eosinophils/100 WBC (Bld) 1.1 % Normal 0.9-7.0 [facility] Comment on above: Performed By: #### C BC ####[facility] [address] [place], [place] [address]DrGopal Fisher Erythrocyte distribution width (RBC) [Ratio] 12.6 % Normal 11.0-15.0 [facility] Comment on above: Performed By: #### C BC ####[facility] [address] [place], [place] [address]DrGopal Fisher Hematocrit (Bld) [Volume fraction] 42.3 % Normal 36.0-48.0 [facility] Comment on above: Performed By: #### C BC ####[facility] [address] [place], [place] [address]DrGopal Fisher Hemoglobin (Bld) [Mass/Vol] 14.1 g/dL Normal 12.0-16.0 [facility] Comment on above: Performed By: #### C BC ####[facility] [address] [place] [address]Dr. Keturah Fisher IG # 0.03 10e3/ul Normal 0.00-0.03 [facility] Comment on above: Performed By: #### C BC ####[facility] [address] [place], [place] [address]Dr. Keturah Fisher IG % 0.3 % Normal 0.0-0.5 [facility] Comment on above: Performed By: #### C BC ####[facility] [address] [place], [place] [address]DrGopal Fisher LYMPH # 2.4 103/ul Normal 1.2-3.8 [facility] Comment on above: Performed By: #### C BC ####[facility] [address] [place], [place] [address]DrGopal Fisher Lymphocytes/100 WBC (Bld) 22.3 % Normal 20.5-60.0 [facility] Comment on above: Performed By: #### C BC ####[facility] [address] [place], [place] [address]DrGopal Fisher MANUAL DIFF REQ NO Normal [facility] Comment on above: Performed By: #### C BC ####[facility] [address] [place], [place] [address]DrGopal Fisher MCH (RBC) [Entitic mass] 32.5 pg Normal 26.7-34.0 [facility] Comment on above: Performed By: #### C BC ####[facility] [address] [place], [place] [address]DrGopal Fisher MCHC (RBC) [Mass/Vol] 33.3 g/dL Normal 29.9-35.2 [facility] Comment on above: Performed By: #### C BC ####[facility] [address] [place], [place] [address]DrGopal Fisher MCV (RBC) [Entitic vol] 97.5 fL Normal 81.0-99.0 [facility] Comment on above: Performed By: #### C BC ####[facility] [address] [place], [place] [address]DrGopal Keturah Fisher MONO # 1.0 103/ul Critically high 0.3-0.8 [facility] Comment on above: Performed By: #### C BC ####[facility] [address] [place], [place] [address]DrGopal Elisaeli Fisher Monocytes/100 WBC (Bld) 8.7 % Normal 1.7-12.0 [facility] Comment on above: Performed By: #### C BC ####[facility] [address] [place], [place] [address]DrGopal Keturah Fisher NEUT # 7.3 103/ul Critically high 1.4-6.5 [facility] Comment on above: Performed By: #### C BC ####[facility] [address] [place], [place] [address]Dr. Elisaeli Fisher Neutrophils/100 WBC (Bld) 67.0 % Normal 43.0-75.0 [facility] Comment on above: Performed By: #### C BC ####[facility] [address] [place], [place] [address]Dr. Keturah Phillip Platelet mean volume (Bld) [Entitic vol] 9.5 fL Normal 9.5-13.5 [facility] Comment on above: Performed By: #### C BC ####[facility] [address] [place], [place] [address]Dr. Elisaeli Phillip PLT 272 103/ul Normal 150-450 [facility] Comment on above: Performed By: #### C BC ####[facility] [address] [place], [place] [address]DrGopal Fisher RBC 4.34 106/ul Normal 4.20-5.40 [facility] Comment on above: Performed By: #### C BC ####[facility] [address] [place], [place] [address]DrGopal Fisher WBC 10.9 103/ul Normal 4.0-11.0 [facility] Comment on above: Performed By: #### C ####[facility] [address] [place], [place] [address] CT ABD/PELV W CONon 08-14-19 CT [...] HEBERT MCPHERSON Date: 2021-08-13 17:14 Normal [facility] ER URINE PROFILEon 2 Bilirubin Ql (U) Negative Normal NEGATIVE [facility] Comment on above: Performed By: #### C BC #### [facility] Laboratory [address] [place] [address] Dr. Keturah Fisher Clarity (U) CLEAR Normal CLEAR [facility] Comment on above: Performed By: #### C BC #### [facility] [address] [place] [address] Dr. Keturah Fisher Color (U) LT. YELLOW Normal YELLOW [facility] Comment on above: Performed By: #### C BC #### [facility] [address] [place] [address] Dr. Keturah Fisher ERUMATTY A micrscopic examina tion will be performed if indicated. Normal [facility] Comment on above: Performed By: #### C BC #### [facility] [address] [place] [address] Dr. Keturah Fisher Glucose Ql (U) Negative Normal NEGATIVE [facility] Comment on above: Performed By: #### C BC #### [facility] [address] [place] [address] Dr. Keturah Fisher Hemoglobin Ql (U) Negative Normal NEGATIVE [facility] Comment on above: Performed By: #### C BC #### [facility] [address] [place] [address] Dr. Keturah Fisher Ketones Ql (U) Negative Normal NEGATIVE [facility] Comment on above: Performed By: #### C BC #### [facility] [address] [place] [address] Dr. Keturah Fisher LEUKOCYTES Negative Normal NEGATIVE [facility] Comment on above: Performed By: #### C BC #### [facility] [address] [place] [address] Dr. Keturah Fisher Nitrite Ql (U) Negative Normal NEGATIVE [facility] Comment on above: Performed By: #### C BC #### [facility] [address] [place] [address] Dr. Keturah Fisher pH (U) 5.5 [pH] Normal 5-9 [facility] Comment on above: Performed By: #### C BC #### [facility] [address] [place] [address] Dr. Keturah Fisher SPEC GRAVITY 1.010 Normal 1.005-<=1. 025 [facility] Comment on above: Performed By: #### C BC #### [facility] [address] [place] [address] Dr. Keturah Fisher UA PROTEIN Negative Normal NEGATIVE/ TRACE [facility] Comment on above: Performed By: #### C BC #### [facility] [address] [place] [address] Dr. Keturah Fisher UR MICRO IND NOT INDICATED Normal [facility] Comment on above: Performed By: #### C BC #### [facility] [address] [place] [address] Dr. Keturah Fisher Urobilinogen Qn (U) 0.2 {Marizol'U}/dL Normal 0.2 - 1. 0 [facility] Comment on above: Performed By: #### C BC #### [facility] [address] [place] [address] Dr. Keturah Fisher LIPASEon 08-13-2021 Lipase [Catalytic activity/Vol] 217.0 U/L Normal 73.0-393.0 [facility] Comment on above: Performed By: #### C BC #### [facility] [address] [place] [address] Dr. Keturah Fisher PROF 14(COMP METB)on 022 Albumin [Mass/Vol] 3.9 g/dL Normal 3.4-5.0 [facility] Comment on above: Performed By: #### C BC #### [facility] [address] [place] [address] Dr. Keturah Fisher Albumin/Globulin [Mass ratio] 1.1 {ratio} Normal [facility] Comment on above: Performed By: #### C BC #### [facility] [address] [place] [address] Dr. Keturah Fisher ALP [Catalytic activity/Vol] 140 U/L Critically high 46-116 [facility] Comment on above: Performed By: #### C BC #### [facility] [address] [place] [address] Dr. Keturah Fisher ALT [Catalytic activity/Vol] 24 U/L Normal 14-59 [facility] Comment on above: Performed By: #### C BC #### [facility] [address] [place] [address] Dr. Keturah Fisher Anion gap [Moles/Vol] 11.7 mmol/L Normal [facility] Comment on above: Performed By: #### C BC #### [facility] [address] [place] [address] Dr. Keturah Fisher AST [Catalytic activity/Vol] 19 U/L Normal 15-37 [facility] Comment on above: Performed By: #### C BC #### [facility] [address] [place] [address] Dr. Keturah Fisher Bilirubin [Mass/Vol] 0.2 mg/dL Normal 0.2-1.0 [facility] Comment on above: Performed By: #### C BC #### [facility] [address] [place] [address] Dr. Keturah Fisher Calcium [Mass/Vol] 9.9 mg/dL Normal 8.5-10.1 [facility] Comment on above: Performed By: #### C BC #### [facility] [address] [place] [address] Dr. Keturah Fisher Chloride [Moles/Vol] 105 mmol/L Normal 98-107 [facility] Comment on above: Performed By: #### C BC #### [facility] [address] [place] [address] Dr. Keturah Fisher CO2 [Moles/Vol] 29.1 mmol/L Normal 21.0-32.0 [facility] Comment on above: Performed By: #### C BC #### [facility] [address] [place] [address] Dr. Keturah Fisher Creatinine [Mass/Vol] 0.81 mg/dL Normal 0.55-1.02 [facility] Comment on above: Performed By: #### C BC #### [facility] [address] [place] [address] Dr. Keturah Fisher EGFR-AF DOMINICAN >60 Normal >=60 [facility] Comment on above: Performed By: #### C BC #### [facility] [address] [place] [address] Dr. Keturah Fisher EGFR-NON AF DOMINICAN >60 Normal >=60 [facility] Comment on above: Performed By: #### C BC #### [facility] [address] [place] [address] Dr. Keturah Fisher Globulin (S) [Mass/Vol] 3.4 g/dL Normal [facility] Comment on above: Performed By: #### C BC #### [facility] [address] [place] [address] Dr. Keturah Fisher Glucose [Mass/Vol] 87 mg/dL Normal 74-106 [facility] Comment on above: Performed By: #### C BC #### [facility] [address] [place] [address] Dr. Keturah Fisher Potassium [Moles/Vol] 3.8 mmol/L Normal 3.5-5.1 [facility] Comment on above: Performed By: #### C BC #### [facility] [address] [place] [address] Dr. Keturah Fisher Protein [Mass/Vol] 7.3 g/dL Normal 6.4-8.2 [facility] Comment on above: Performed By: #### C BC #### [facility] [address] [place] [address] Dr. Keturah Fisher Sodium [Moles/Vol] 142 mmol/L Normal 136-145 [facility] Comment on above: Performed By: #### C BC #### [facility] [address] [place], [place] [address] Dr. Keturah Fisher Urea nitrogen [Mass/Vol] 11.0 mg/dL Normal 7.0-18.0 [facility] Comment on above: Performed By: #### C BC #### [facility] [address] [place], [place] [address] Dr. Keturah Fisher Urea nitrogen/Creatinine [Mass ratio] 13.6 mg/mg Normal [facility] Comment on above: Performed By: #### C BC #### [facility] [address] [place], [place] [address] Dr. Keturah Fisher Albumin [Mass/volume] in Ser um or PlasmaOrdered By: Keaton Barnard on 08-11-2021 Albumin [Mass/Vol] 3.4 g/dL 3.2-5.5 [facility] Basophils Auto (Bld) [#/Vol] Ordered By: Keaton Barnard on 08-11-2021 Basophils (Bld) [#/Vol] 0.1 10*3/uL 0.0-0.2 [facility] Basophils/100 WBC Auto (Bld) Ordered By: Keaton Barnard on 08-11-2021 Basophils/100 WBC (Bld) 0.9 % . [facility] Bilirubin Test strip Ql (U)O rdered By: Keaton Barnard on 08-11-2021 Bilirubin Ql (U) Negative Negative [facility] Blood hemoglobin measurement (mass/volume)Ordered By: Keaton Barnard on 08-11-2021 Hemoglobin (Bld) [Mass/Vol] 14.1 g/dL 11.8-15.4 [facility] Blood leukocytes automated c ount (number/volume)Ordered By: Keaton Barnard on 08-11-2021 WBC (Bld) [#/Vol] 9.7 10*3/uL 4.5-11.0 [facility] Color Auto (U)Ordered By: Luis Barnard on 08-11-2021 Color (U) Yellow Yellow [facility] Creatinine and Glomerular fi ltration rate.predicted panel (S/P/Bld)Ordered By: Keaton Barnard on 08-11-2021 Creatinine [Mass/Vol] 0.95 mg/dL 0.44-1.03 [facility] Direct bilirubin measurement Ordered By: Keaton Barnard on 08-11-2021 Bilirubin.direct [Mass/Vol] mg/dL 0.0-0.4 [facility] Eosinophils Auto (Bld) [#/Vo l]Ordered By: Keaton Barnard on 08-11-2021 Eosinophils (Bld) [#/Vol] 0.1 10*3/uL 0.0-0.45 [facility] Eosinophils/100 WBC Auto (Bl d)Ordered By: Keaton Barnard on 08-11-2021 Eosinophils/100 WBC (Bld) 1.3 % . [facility] Erythrocyte distribution wid th Auto (RBC) [Ratio]Ordered By: Keaton Barnard on 08-11-2021 Erythrocyte distribution width (RBC) [Ratio] 13.2 % 11.9-15.3 [facility] Estimated glomerular filtrat ion rate (GFR) non- AmericanOrdered By: Keaton Barnard on 08-11-2021 GFR/1.73 sq M.predicted among non-blacks MDRD (S/P/Bld) [Vol rate/Area] > 60 mL/Min [facility] Globulin Calc (S) [Mass/Vol] Ordered By: Keaton Barnard on 08-11-2021 Globulin (S) [Mass/Vol] 2.6 g/dL [facility] Hematocrit Auto (Bld) [Volum e fraction]Ordered By: Keaton Barnard on 08-11-2021 Hematocrit (Bld) [Volume fraction] 42.1 % 34.0-46.4 [facility] Ketones Auto test strip (U) [Mass/Vol]Ordered By: Keaton Barnard on 08-11-2021 Ketones (U) [Mass/Vol] Negative [facility] - Chemistry and C hemistry - challengeOrdered By: Keaton Barnard on 08-11-2021 Lipase [Catalytic activity/Vol] 89.0 U/L 22-51 [facility] Laboratory - CoagulationOrde red By: Keaton Barnard on 08-11-2021 PT Coag (PPP) [Time] 12.5 s 9.0-12.9 [facility] - Hematology and Cell countsOrdered By: Keaton Barnard on 08-11-2021 Nucleated RBC/100 WBC (Bld) [Ratio] 0.1 % 0-0.5 [facility] Lymphocytes Auto (Bld) [#/Vo l]Ordered By: Keaton Barnard on 08-11-2021 Lymphocytes (Bld) [#/Vol] 2.5 10*3/uL 1.00-4.8 [facility] Lymphocytes/100 WBC Auto (Bl d)Ordered By: Keaton Barnard on 08-11-2021 Lymphocytes/100 WBC (Bld) 25.8 % . [facility] MCH Auto (RBC) [Entitic mass ]Ordered By: Keaton Barnard on 08-11-2021 MCH (RBC) [Entitic mass] 32.4 pg 24.7-34.3 [facility] MCHC Auto (RBC) [Mass/Vol]Or dered By: Keaton Barnard on 08-11-2021 MCHC (RBC) [Mass/Vol] 33.4 g/dL 32.0-35.0 [facility] MCV Auto (RBC) [Entitic vol] Ordered By: Keaton Barnard on 08-11-2021 MCV (RBC) [Entitic vol] 96.8 fL 80-100 [facility] Monocytes Auto (Bld) [#/Vol] Ordered By: Keaton Barnard on 08-11-2021 Monocytes (Bld) [#/Vol] 0.8 10*3/uL 0.0-0.8 [facility] Monocytes/100 WBC Auto (Bld) Ordered By: Keaton Barnard on 08-11-2021 Monocytes/100 WBC (Bld) 8.7 % . [facility] Neutrophils Auto (Bld) [#/Vo l]Ordered By: Keaton Barnard on 08-11-2021 Neutrophils (Bld) [#/Vol] 6.1 10*3/uL 1.8-7.7 [facility] Neutrophils/100 WBC Auto (Bl d)Ordered By: Keaton Barnard on 08-11-2021 Neutrophils/100 WBC (Bld) 63.3 % . [facility] Nitrite Test strip Ql (U)Ord ered By: Keaton Barnard on 08-11-2021 Nitrite Ql (U) Negative Negative [facility] No Panel InformationOrdered By: Keaton Barnard on 08-11-2021 Estimated GFR () > 60 mL/Min [facility] Comment on above: GFR estimated refere nce range: According to KDOQI guidelines, <60 ml/min/1.73m2 is sufficient to diagnose a patient with chronic kidney disease. Pharmacy Creatinine Clearance (Chem 62.33 [facility] Platelet mean volume Auto (B ld) [Entitic vol]Ordered By: Keaton Barnard on 08-11-2021 Platelet mean volume (Bld) [Entitic vol] 8.0 fL 6.3-10.7 [facility] Platelet poor plasma interna tional normalized ratio (INR) by coagulation assay (relatOrdered By: Keaton Barnard on 08-11-2021 INR Coag (PPP) [Relative time] 1.1 {INR} [facility] Comment on above: INR Therapeutic [...] 08-11-2021 Platelets (Bld) [#/Vol] 252 10*3/uL 150-450 [facility] Protein Auto test strip (U) [Mass/Vol]Ordered By: Keaton Barnard on 08-11-2021 Protein (U) [Mass/Vol] Negative Negative [facility] Protein [Mass/volume] in Ser um or PlasmaOrdered By: Keaton Barnard on 08-11-2021 Protein [Mass/Vol] 6.0 g/dL 6.1-7.9 [facility] RBC Auto (Bld) [#/Vol]Ordere d By: Keaton Barnard on 08-11-2021 RBC (Bld) [#/Vol] 4.35 10*6/uL 3.60-5.00 [facility] Serum or plasma alanine hughes otransferase measurement without P-5'-P (enzymatic activiOrdered By: Keaton Barnard on 08-11-2021 ALT No additional P-5'-P [Catalytic activity/Vol] 12 U/L 10-60 [facility] Serum or plasma albumin/glob ulin mass ratioOrdered By: Keaton Barnard on 08-11-2021 Albumin/Globulin [Mass ratio] 1.3 {ratio} [facility] Serum or plasma alkaline jaqueline sphatase measurement (enzymatic activity/volume)Ordered By: Keaton Barnard on 08-11-2021 ALP [Catalytic activity/Vol] 98 U/L 32-92 [facility] Serum or plasma aspartate am inotransferase measurement (enzymatic activity/volume)Ordered By: Keaton Barnard on 08-11-2021 AST [Catalytic activity/Vol] 17 U/L 10-42 [facility] Serum or plasma calcium priscilla urement (mass/volume)Ordered By: Keaton Barnard on 08-11-2021 Calcium [Mass/Vol] 9.3 mg/dL 8.2-10.2 [facility] Serum or plasma chloride daron surement (moles/volume)Ordered By: Keaton Barnard on 08-11-2021 Chloride [Moles/Vol] 104 mmol/L 95-114 [facility] Serum or plasma glucose priscilla urement (mass/volume)Ordered By: Keaton Barnard on 08-11-2021 Glucose [Mass/Vol] 95 mg/dL 70-100 [facility] Comment on above: ADA recommended refe rence range Random Glucose Reference Range is dependent on time and content of last meal. Glucose of more than 200 mg/dL in a nonstressed, ambulatory subject supports the diagnosis of Diabetes Mellitus. Serum or plasma non-glucuron idated bilirubin measurement (mass/volume)Ordered By: Keaton Barnard on 08-11-2021 Bilirubin.indirect [Mass/Vol] TNP [facility] Comment on above: Test not performed Serum or plasma potassium me asurement (moles/volume)Ordered By: Keaton Barnard on 08-11-2021 Potassium [Moles/Vol] 3.8 mmol/L 3.5-5.1 [facility] Serum or plasma sodium measu rement (moles/volume)Ordered By: Keaton Barnard on 08-11-2021 Sodium [Moles/Vol] 138 mmol/L 136-146 [facility] Serum or plasma total biliru bin measurement (mass/volume)Ordered By: Keaton Barnard on 08-11-2021 Bilirubin [Mass/Vol] 0.3 mg/dL 0.3-1.2 [facility] Serum or plasma total carbon dioxide measurement (moles/volume)Ordered By: Keaton Barnard on 08-11-2021 CO2 [Moles/Vol] 24.8 mmol/L 22.0-30.0 [facility] Serum or plasma urea nitroge n measurement (mass/volume)Ordered By: Keaton Barnard on 08-11-2021 Urea nitrogen [Mass/Vol] 10 mg/dL 9-23 [facility] Specific gravity Auto test s trip (U) [Rel density]Ordered By: Keaton Barnard on 08-11-2021 Specific gravity (U) [Rel density] 1.028 1.001-1.03 0 [facility] Troponin I.cardiac [Mass/vol ume] in Serum or Plasma by High sensitivity methodOrdered By: Keaton Barnard on 08-11-2021 Troponin I.cardiac High sensitivity method [Mass/Vol] 3 pg/mL 0-15 [facility] Urine clarity by refractomet ry automatedOrdered By: Keaton Barnard on 08-11-2021 Clarity Refractometry automated (U) Clear Clear [facility] Urine glucose measurement by automated test strip (mass/volume)Ordered By: Keaton Barnard on 08-11-2021 Glucose Auto test strip (U) [Mass/Vol] Normal mg/dL Normal [facility] Urine hemoglobin detection b y automated test stripOrdered By: Keaton Barnard on 08-11-2021 Hemoglobin Auto test strip Ql (U) Negative Negative [facility] Urine leukocyte esterase det ection by automated test stripOrdered By: Keaton Barnard on 08-11-2021 Leukocyte esterase Auto test strip Ql (U) Negative Negative [facility] Urobilinogen Auto test strip (U) [Mass/Vol]Ordered By: Keaton Barnard on 08-11-2021 Urobilinogen (U) [Mass/Vol] Normal mg/dL Normal [facility] pH Auto test strip (U)Ordere d By: Keaton Barnard on 08-11-2021 pH (U) 5.0 [pH] 5.0-9.0 [facility] AMYLASEon 07-31-2021 Amylase [Catalytic activity/Vol] 158 U/L Critically high 25-115 [facility] Comment on above: Performed By: #### L IPA, CMP, CRP, NAT #### [facility] [address] [place], [place] [address] Dr. Keturah Fisher CBC AUTO DIFFon 07-31-2021 BASO # 0.1 103/ul Normal 0.0-0.1 [facility] Comment on above: Performed By: #### C BC ####[facility] [address] [place] [address]Dr. Keturah Fisher Basophils/100 WBC (Bld) 0.7 % Normal 0.2-2.0 [facility] Comment on above: Performed By: #### C BC ####[facility] [address] [place] [address]Dr. Keturah Fisher EO # 0.1 103/ul Normal 0.0-0.7 [facility] Comment on above: Performed By: #### C BC ####[facility] [address] [place] [address]Dr. Keturah Fisher Eosinophils/100 WBC (Bld) 0.9 % Normal 0.9-7.0 [facility] Comment on above: Performed By: #### C BC ####[facility] [address] [place] [address]Dr. Keturah Fisher Erythrocyte distribution width (RBC) [Ratio] 12.7 % Normal 11.0-15.0 [facility] Comment on above: Performed By: #### C BC ####[facility] [address] [place] [id number]. Keturah Fisher Hematocrit (Bld) [Volume fraction] 43.2 % Normal 36.0-48.0 [facility] Comment on above: Performed By: #### C BC ####[facility] [address] [place] [address]DrGopal Fisher Hemoglobin (Bld) [Mass/Vol] 14.5 g/dL Normal 12.0-16.0 [facility] Comment on above: Performed By: #### C BC ####[facility] [address] [place] [address]DrGopal Fisher IG # 0.04 10e3/ul Critically high 0.00-0.03 [facility] Comment on above: Performed By: #### C BC ####[facility] [address] [place] [address]DrGopal Fisher IG % 0.4 % Normal 0.0-0.5 [facility] Comment on above: Performed By: #### C BC ####[facility] [address] [place] [address]DrGopal Fisher LYMPH # 2.8 103/ul Normal 1.2-3.8 [facility] Comment on above: Performed By: #### C BC ####[facility] [address] [place] [address]DrGopal Fisher Lymphocytes/100 WBC (Bld) 24.9 % Normal 20.5-60.0 [facility] Comment on above: Performed By: #### C BC ####[facility] [address] [place] [address]DrGopal Fisher MANUAL DIFF REQ NO Normal [facility] Comment on above: Performed By: #### C BC ####[facility] [address] [place] [address]DrGopal Fisher MCH (RBC) [Entitic mass] 32.7 pg Normal 26.7-34.0 [facility] Comment on above: Performed By: #### C BC ####[facility] [address] [place] [id number] Fisher MCHC (RBC) [Mass/Vol] 33.6 g/dL Normal 29.9-35.2 [facility] Comment on above: Performed By: #### C BC ####[facility] [address] [place] [id number] Fisher MCV (RBC) [Entitic vol] 97.5 fL Normal 81.0-99.0 [facility] Comment on above: Performed By: #### C BC ####[facility] [address] [place] [id number]. Keturah Fisher MONO # 0.9 103/ul Critically high 0.3-0.8 [facility] Comment on above: Performed By: #### C BC ####[facility] [address] [place] [address]Dr. Keturah Phillip Monocytes/100 WBC (Bld) 8.1 % Normal 1.7-12.0 [facility] Comment on above: Performed By: #### C BC ####[facility] [address] [place] [address]Dr. Keturah Fisher NEUT # 7.3 103/ul Critically high 1.4-6.5 [facility] Comment on above: Performed By: #### C BC ####[facility] [address] [place] [address]Dr. Elisaeli Fisher Neutrophils/100 WBC (Bld) 65.0 % Normal 43.0-75.0 [facility] Comment on above: Performed By: #### C BC ####[facility] [address] [place], [place] [address]Dr. Keutrah Phillip Platelet mean volume (Bld) [Entitic vol] 10.0 fL Normal 9.5-13.5 [facility] Comment on above: Performed By: #### C BC ####[facility] [address] [place] [id number]. Keturah Phillip PLT 245 103/ul Normal 150-450 [facility] Comment on above: Performed By: #### C BC ####[facility] [address] [place] [id number]. Keturah Fisher RBC 4.43 106/ul Normal 4.20-5.40 [facility] Comment on above: Performed By: #### C BC ####[facility] [address] [place] [id number]. Keturah Fisher WBC 11.2 103/ul Critically high 4.0-11.0 [facility] Comment on above: Performed By: #### C BC ####[facility] [address] [place] [address]Dr. Keturah Fisher LIPASEon 07-31-2021 Lipase [Catalytic activity/Vol] 439.0 U/L Critically high 73.0-393.0 [facility] Comment on above: Performed By: #### L IPA, CMP, CRP, NAT #### [facility] [address] [place] [address] [address] Keturah Fisher PROF 14(COMP METB)on 022 Albumin [Mass/Vol] 3.6 g/dL Normal 3.4-5.0 [facility] Comment on above: Performed By: #### L IPA, CMP, CRP, NAT #### [facility] [address] [place] [address] [address] Keturah Fisher Albumin/Globulin [Mass ratio] 1.1 {ratio} Normal [facility] Comment on above: Performed By: #### L IPA, CMP, CRP, NAT #### [facility] [address] [place] [address] [address] Keturah Fisher ALP [Catalytic activity/Vol] 119 U/L Critically high 46-116 [facility] Comment on above: Performed By: #### L IPA, CMP, CRP, NAT #### [facility] [address] [place] [address] [address] Keturah Fisher ALT [Catalytic activity/Vol] 20 U/L Normal 14-59 [facility] Comment on above: Performed By: #### L IPA, CMP, CRP, NAT #### [facility] [address] [place] [address] [address] Keturah Fisher Anion gap [Moles/Vol] 13.4 mmol/L Normal [facility] Comment on above: Performed By: #### L IPA, CMP, CRP, NAT #### [facility] [address] [place] [address] [address] Keturah Fisher AST [Catalytic activity/Vol] 16 U/L Normal 15-37 [facility] Comment on above: Performed By: #### L IPA, CMP, CRP, NAT #### [facility] [address] [place] [address] Dr. Keturah Fisher Bilirubin [Mass/Vol] 0.1 mg/dL Critically low 0.2-1.0 [facility] Comment on above: Performed By: #### L IPA, CMP, CRP, NAT #### [facility] [address] [place] [address] Dr. Keturah Fisher Calcium [Mass/Vol] 8.9 mg/dL Normal 8.5-10.1 [facility] Comment on above: Performed By: #### L IPA, CMP, CRP, NAT #### [facility] [address] [place] [address] Dr. Keturah Fisher Chloride [Moles/Vol] 106 mmol/L Normal 98-107 [facility] Comment on above: Performed By: #### L IPA, CMP, CRP, NAT #### [facility] [facility] [address] [place] [address] Dr. Keturah Fisher CO2 [Moles/Vol] 25.4 mmol/L Normal 21.0-32.0 [facility] Comment on above: Performed By: #### L IPA, CMP, CRP, NAT #### [facility] [address] [place] [address] Dr. Keturah Fisher Creatinine [Mass/Vol] 0.73 mg/dL Normal 0.55-1.02 [facility] Comment on above: Performed By: #### L IPA, CMP, CRP, NAT #### [facility] [address] [place] [address] Dr. Keturah Fisher EGFR-AF DOMINICAN >60 Normal >=60 [facility] Comment on above: Performed By: #### L IPA, CMP, CRP, NAT #### [facility] [address] [place] [address] Dr. Keturah Fisher EGFR-NON AF DOMINICAN >60 Normal >=60 [facility] Comment on above: Performed By: #### L IPA, CMP, CRP, NAT #### [facility] [address] [place] [address] Dr. Keturah Fisher Globulin (S) [Mass/Vol] 3.2 g/dL Normal [facility] Comment on above: Performed By: #### L IPA, CMP, CRP, NAT #### [facility] [address] [address] [address] Keturah Fisher Glucose [Mass/Vol] 105 mg/dL Normal 74-106 [facility] Comment on above: Performed By: #### L IPA, CMP, CRP, NAT #### [facility] [address] [address] [address] Keturah Fisher Potassium [Moles/Vol] 3.8 mmol/L Normal 3.5-5.1 [facility] Comment on above: Performed By: #### L IPA, CMP, CRP, NAT #### [facility] [address] [address] [address] Keturah Fisher Protein [Mass/Vol] 6.8 g/dL Normal 6.4-8.2 [facility] Comment on above: Performed By: #### L IPA, CMP, CRP, NAT #### [facility] [address] [address] [address] Keturah Fisher Sodium [Moles/Vol] 141 mmol/L Normal 136-145 [facility] Comment on above: Performed By: #### L IPA, CMP, CRP, NAT #### [facility] [address] [place] [address] Dr. Keturah Fisher Urea nitrogen [Mass/Vol] 12.0 mg/dL Normal 7.0-18.0 [facility] Comment on above: Performed By: #### L IPA, CMP, CRP, NAT #### [facility] [address] [place] [address] Dr. Keturah Fisher Urea nitrogen/Creatinine [Mass ratio] 16.4 mg/mg Normal [facility] Comment on above: Performed By: #### L IPA, CMP, CRP, NAT #### [facility] [address] [place] [address] Dr. Keturah Fisher TROPONIN, HIGH SENSITIVITYon 07-31-2021 HSTROP 4.2 pg/mL Normal 4.0-51.3 [facility] Comment on above: Result Comment: CUT- OFF POINTS HAVE BEEN ESTABLISHED BASED ON THE FOURTH UNIVERSAL DEFINITIONS OF MYOCARDIAL INFARCTION. THE UPPER REFERENCE LIMIT (URL) OF TROPONIN, DEFINED THE 99TH PERCENTILE OF cTnI DISTRIBUTION IN A REFERENCE POPULATION, HAS BEEN CONFIRMED THE DECISION THRESHOLD FOR MA DIAGNOSIS. Performed By: #### L IPA, CMP, CRP, NAT #### [facility] [address] [place], [place] [address] Dr. Keturah Fisher AMYLASEon 07-19-2021 Amylase [Catalytic activity/Vol] 198 U/L Critically high 25-115 [facility] Comment on above: Performed By: #### A MY, LIPA, CMP ####[facility] [address] [address]Dr. Keturah Fisher CBC AUTO DIFFon 07-19-2021 BASO # 0.1 103/ul Normal 0.0-0.1 [facility] Comment on above: Performed By: #### C BC ####[facility] [address] [address]Dr. Keturah Fisher Basophils/100 WBC (Bld) 0.7 % Normal 0.2-2.0 [facility] Comment on above: Performed By: #### C BC ####[facility] [address] [address]Dr. Keturah Fisher EO # 0.1 103/ul Normal 0.0-0.7 [facility] Comment on above: Performed By: #### C BC ####[facility] [address] [address]DrGopal Fisher Eosinophils/100 WBC (Bld) 1.0 % Normal 0.9-7.0 [facility] Comment on above: Performed By: #### C BC ####[facility] [address] [address]DrGopal Fisher Erythrocyte distribution width (RBC) [Ratio] 12.5 % Normal 11.0-15.0 [facility] Comment on above: Performed By: #### C BC ####[facility] [address] [address]DrGopal Fisher Hematocrit (Bld) [Volume fraction] 42.4 % Normal 36.0-48.0 [facility] Comment on above: Performed By: #### C BC ####[facility] [address] [address]Dr. Keturah Phillip Hemoglobin (Bld) [Mass/Vol] 14.2 g/dL Normal 12.0-16.0 [facility] Comment on above: Performed By: #### C BC ####[facility] [address] [address]Dr. Elisaeli Phillip IG # 0.03 10e3/ul Normal 0.00-0.03 [facility] Comment on above: Performed By: #### C BC ####[facility] [address] [place], [place] [address]Dr. Keturah Fisher IG % 0.3 % Normal 0.0-0.5 [facility] Comment on above: Performed By: #### C BC ####[facility] [address] [place], [place] [address]Dr. Keturah Fisher LYMPH # 3.0 103/ul Normal 1.2-3.8 [facility] Comment on above: Performed By: #### C BC ####[facility] [address] [place], [place] [address]DrGopal Fisher Lymphocytes/100 WBC (Bld) 29.5 % Normal 20.5-60.0 [facility] Comment on above: Performed By: #### C BC ####[facility] [address] [address]Dr. Keturah Fisher MANUAL DIFF REQ NO Normal [facility] Comment on above: Performed By: #### C BC ####[facility] [address] [id number] Fisher MCH (RBC) [Entitic mass] 32.8 pg Normal 26.7-34.0 [facility] Comment on above: Performed By: #### C BC ####[facility] [address] [id number]. Keturah Fisher MCHC (RBC) [Mass/Vol] 33.5 g/dL Normal 29.9-35.2 [facility] Comment on above: Performed By: #### C BC ####[facility] [address] [id number] Keturah Phillip MCV (RBC) [Entitic vol] 97.9 fL Normal 81.0-99.0 [facility] Comment on above: Performed By: #### C BC ####[facility] [address] [id number] Fisher MONO # 1.0 103/ul Critically high 0.3-0.8 [facility] Comment on above: Performed By: #### C BC ####[facility] [address] [address]DrGopal Fisher Monocytes/100 WBC (Bld) 9.3 % Normal 1.7-12.0 [facility] Comment on above: Performed By: #### C BC ####[facility] [address] [place], [place] [address]Dr. Keturah Fisher NEUT # 6.1 103/ul Normal 1.4-6.5 [facility] Comment on above: Performed By: #### C BC ####[facility] [address] [place], [place] [address]Dr. Keturah Fisher Neutrophils/100 WBC (Bld) 59.2 % Normal 43.0-75.0 [facility] Comment on above: Performed By: #### C BC ####[facility] [address] [id number] Fisher Platelet mean volume (Bld) [Entitic vol] 9.8 fL Normal 9.5-13.5 [facility] Comment on above: Performed By: #### C BC ####[facility] [address] [id number]. Keturah Fisher PLT 249 103/ul Normal 150-450 [facility] Comment on above: Performed By: #### C BC ####[facility] [address] [id number] Fisher RBC 4.33 106/ul Normal 4.20-5.40 [facility] Comment on above: Performed By: #### C BC ####[facility] [address] [address]Dr. Keturah Fisher WBC 10.2 103/ul Normal 4.0-11.0 [facility] Comment on above: Performed By: #### C BC ####[facility] [address] [address]Dr. Keturah Fisher LIPASEon 07-19-2021 Lipase [Catalytic activity/Vol] 554.0 U/L Critically high 73.0-393.0 [facility] Comment on above: Performed By: #### A AMANDEEP LIPA, CMP ####[facility] [address] [address]Dr. Keturah Fisher PROF 14(COMP METB)on 022 Albumin [Mass/Vol] 4.0 g/dL Normal 3.4-5.0 [facility] Comment on above: Performed By: #### A AMANDEEP LIPA, CMP ####[facility] [address] [address]Dr. Keturah Fisher Albumin/Globulin [Mass ratio] 1.1 {ratio} Normal [facility] Comment on above: Performed By: #### A AMANDEEP LIPA, CMP ####[facility] [address] [address]Dr. Keturah Fisher ALP [Catalytic activity/Vol] 141 U/L Critically high 46-116 [facility] Comment on above: Performed By: #### A AMANDEEP LIPA, CMP ####[facility] [address] [address]Dr. Keturah Fisher ALT [Catalytic activity/Vol] 21 U/L Normal 14-59 [facility] Comment on above: Performed By: #### A AMANDEEP LIPA, CMP ####[facility] [address] [address]Dr. Keturah Fisher Anion gap [Moles/Vol] 10.3 mmol/L Normal [facility] Comment on above: Performed By: #### A AMANDEEP LIPA, CMP ####[facility] [address] [address]Dr. Keturah Fisher AST [Catalytic activity/Vol] 22 U/L Normal 15-37 [facility] Comment on above: Performed By: #### A MY, LIPA, CMP ####[facility] [address] [address]Dr. Keturah Fisher Bilirubin [Mass/Vol] 0.3 mg/dL Normal 0.2-1.0 [facility] Comment on above: Performed By: #### A MY, LIPA, CMP ####[facility] [address] [place], [place] [address]Dr. Keturah Fisher Calcium [Mass/Vol] 9.9 mg/dL Normal 8.5-10.1 [facility] Comment on above: Performed By: #### A MY, LIPA, CMP ####[facility] [address] [place], [place] [address]Dr. Keturah Fisher Chloride [Moles/Vol] 103 mmol/L Normal 98-107 [facility] Comment on above: Performed By: #### A MY, LIPA, CMP ####[facility] [address] [place], [place] [address]Dr. Keturah Fisher CO2 [Moles/Vol] 27.6 mmol/L Normal 21.0-32.0 [facility] Comment on above: Performed By: #### A MY, LIPA, CMP ####[facility] [address] [place], [place] [address]Dr. Keturah Fisher Creatinine [Mass/Vol] 0.93 mg/dL Normal 0.55-1.02 [facility] Comment on above: Performed By: #### A MY, LIPA, CMP ####[facility] [address] [place], [place] [address]Dr. Keturah Fisher EGFR-AF DOMINICAN >60 Normal >=60 [facility] Comment on above: Performed By: #### A MY, LIPA, CMP ####[facility] [address] [address]Dr. Keturah Fisher EGFR-NON AF DOMINICAN >60 Normal >=60 [facility] Comment on above: Performed By: #### A MY LIPA, CMP ####[facility] [address] [address]Dr. Keturah Fisher Globulin (S) [Mass/Vol] 3.5 g/dL Normal [facility] Comment on above: Performed By: #### A MY LIPA, CMP ####[facility] [address] [address]Dr. Keturah Fisher Glucose [Mass/Vol] 99 mg/dL Normal 74-106 [facility] Comment on above: Performed By: #### A MY LIPA, CMP ####[facility] [address] [place], [place] [address]Dr. Keturah Fisher Potassium [Moles/Vol] 3.9 mmol/L Normal 3.5-5.1 [facility] Comment on above: Performed By: #### A AMANDEEP LIPA, CMP ####[facility] [address] [place], [place] [address]Dr. Keturah Fisher Protein [Mass/Vol] 7.5 g/dL Normal 6.4-8.2 [facility] Comment on above: Performed By: #### A AMANDEEP LIPA, CMP ####[facility] [address] [place], [place] [address]Dr. Keturah Fisher Sodium [Moles/Vol] 137 mmol/L Normal 136-145 [facility] Comment on above: Performed By: #### A MY LIPA, CMP ####[facility] [address] [place], [place] [address]Dr. Keturah Fisher Urea nitrogen [Mass/Vol] 9.0 mg/dL Normal 7.0-18.0 [facility] Comment on above: Performed By: #### A MY LIPA, CMP ####[facility] [address] [place], [place] [address]Dr. Keturah Fisher Urea nitrogen/Creatinine [Mass ratio] 9.7 mg/mg Normal [facility] Comment on above: Performed By: #### A MY LIPA, CMP ####[facility] [address] [place], [place] [address]Up. Keturah Fisher XR ABD FLAT UP_PA Jorje [...] LYNNE PERDOMO Date: 2021-07-19 16:57 Normal [facility] COVID Quick Testingon 2021 Result Positive [employer] Other Amylaseon 03-26-2020 Amylase [Catalytic activity/Vol] 185 U/L High 28 - 100 U/L [place] CBC Auto Differentialon 03-09 Basophils (Bld) [#/Vol] 0.06 10*3/uL [place] Basophils/100 WBC (Bld) 1 % 0 - 2 % [place] Differential Type NOT REPORTED [place] Eosinophils (Bld) [#/Vol] 0.12 10*3/uL [place] Eosinophils/100 WBC (Bld) 1 % 1 - 4 % [place] Erythrocyte distribution width (RBC) [Ratio] 12.4 % 11.8 - 14.4 % [place] Hematocrit (Bld) [Volume fraction] 40.6 % 36.3 - 47.1 % [place] Hemoglobin (Bld) [Mass/Vol] 13.7 g/dL 11.9 - 15.1 g/dL [place] Immature granulocytes (Bld) [#/Vol] 0 % 0 [place] Immature granulocytes (Bld) [#/Vol] 10*3/uL [place] Lymphocytes (Bld) [#/Vol] 2.62 10*3/uL [place] Lymphocytes/100 WBC (Bld) 27 % 24 - 43 % [place] MCH (RBC) [Entitic mass] 33.4 pg 25.2 - 33.5 pg [place] MCHC (RBC) [Mass/Vol] 33.7 g/dL 28.4 - 34.8 g/dL [place] MCV (RBC) [Entitic vol] 99.0 fL 82.6 - 102.9 fL [place] Monocytes (Bld) [#/Vol] 0.78 10*3/uL [place] Monocytes/100 WBC (Bld) 8 % 3 - 12 % [place] Platelet mean volume (Bld) [Entitic vol] 9.4 fL 8.1 - 13.5 fL [place] Platelets (Bld) [#/Vol] 235 10*3/uL [place] Platelets (Bld) [#/Vol] NOT REPORTED [place] RBC (Bld) [#/Vol] 4.10 10*6/uL 3.95 - 5.11 m/uL [place] RBC morphology finding Nom (Bld) NOT REPORTED [place] Segmented neutrophils/100 WBC (Bld) 63 % 36 - 65 % [place] Segs Absolute 5.96 [place] WBC (Bld) [#/Vol] 9.6 10*3/uL [place] WBC (Bld) [#/Vol] 0.0 10*3/uL 0.0 per 100 WBC [place] WBC Morphology NOT REPORTED [place] Comprehensive Metabolic Pane l w/ Reflex to MGon 03-26-2020 Albumin [Mass/Vol] 4.3 g/dL 3.5 - 5.2 g/dL [place] Albumin/Globulin [Mass ratio] 1.7 {ratio} [place] ALP [Catalytic activity/Vol] 117 U/L High 35 - 104 U/L [place] ALT [Catalytic activity/Vol] 11 U/L 5 - 33 U/L [place] Anion gap [Moles/Vol] 9 mmol/L 9 - 17 mmol/L [place] AST [Catalytic activity/Vol] 18 U/L <32 [place] Bilirubin Ql (U) 0.15 mg/dL Low 0.3 - 1.2 mg/dL [place] Bun/Cre Ratio 12 [place] Calcium [Mass/Vol] 9.7 mg/dL 8.6 - 10. 4 mg/dL [place] Chloride [Moles/Vol] 102 mmol/L 98 - 10 7 mmol/L [place] CO2 [Moles/Vol] 25 mmol/L 20 - 31 mmol/L [place] Creatinine [Mass/Vol] 0.74 mg/dL 0.5 - 0.9 mg/dL [place] GFR >60 >60 mL/min [place] GFR Non- >60 >60 mL/min [place] Glucose [Mass/Vol] 94 mg/dL 70 - 99 mg/dL [place] Potassium [Moles/Vol] 4.2 mmol/L 3.7 - 5.3 mmol/L [place] Protein [Mass/Vol] 6.8 g/dL 6.4 - 8.3 g/dL [place] Sodium [Moles/Vol] 136 mmol/L 135 - 144 mmol/L [place] Urea nitrogen [Mass/Vol] 9 mg/dL 6 - 20 mg/dL [place] Lactic Acidon 03-26-2020 Lactate [Moles/Vol] 1.3 mmol/L 0.5 - 2. 2 mmol/L [place] Lipaseon 03-26-2020 Interpretation and review of laboratory results Abnormal [place] Lipase [Catalytic activity/Vol] 225 U/L Critically high 13 - 60 U/L [place] Metabolic Panelon 03-26-2020 GFR/1.73 sq M predicted among non-blacks MDRD (S/P/Bld) [Vol rate/Area] [place] Comment on above: Average GFR for 50-5 9 years old: 93 mL/min/1.73sq m Chronic Kidney Disease: <60 mL/min/1.73sq m Kidney failure: <15 mL/min/1.73sq m eGFR calculated using average adult body mass. Additional eGFR calculator available at: http://www.[employer]/multiple_crcl_2012.htm Stage 1: Some kidney damage normal GFR Stage 2: Mild kidney damage GFR 60-89 Stage 3: Moderate kidney damage GFR 30-59 Stage 4: Severe kidney damage GFR 15-29 Stage 5: Severe kidney damage GFR <15 ESRD - chronic treatment by dialysis or transplant Otheron 03-26-2020 Interpretation and review of laboratory results Abnormal [place] SPECIMEN REJECTIONon 021 Ordered Test CDP [place] Reason for Rejection Unable to perform testing: Specimen clotted. [place] Specimen source Nom (Unsp spec) .BLOOD [place] - NOT REPORTED [place] Urinalysis, reflex to micros copicon 03-26-2020 Bilirubin Urine Negative NEGATIVE [place] Color, UA YELLOW YELLOW [place] Glucose, Ur Negative NEGATIVE [place] Ketones Ql (U) Negative NEGATIVE [place] Leukocyte esterase Test strip Ql (U) Negative NEGATIVE [place] Nitrite, Urine Negative NEGATIVE [place] pH, UA 5.5 [place] Protein (U) [Mass/Vol] Negative NEGATIVE [place] Specific [place], UA 1.010 [place] Turbidity UA CLEAR CLEAR [place] Urinalysis Comments NOT REPORTED [place] Urine Hgb Negative NEGATIVE [place] Urobilinogen, Urine Normal Normal [place] CBC auto differentialon 08-07 Basophils (Bld) [#/Vol] 0.04 10*3/uL [place] Basophils/100 WBC (Bld) 1 % 0 - 2 % [place] Differential Type NOT REPORTED [place] Eosinophils (Bld) [#/Vol] 0.10 10*3/uL [place] Eosinophils/100 WBC (Bld) 1 % 1 - 4 % [place] Erythrocyte distribution width (RBC) [Ratio] 13.0 % 11.8 - 14.4 % [place] Hematocrit (Bld) [Volume fraction] 35.2 % Low 36.3 - 47.1 % [place] Hemoglobin (Bld) [Mass/Vol] 11.7 g/dL Low 11.9 - 15.1 g/dL [place] Immature granulocytes (Bld) [#/Vol] 10*3/uL [place] Immature granulocytes (Bld) [#/Vol] 0 % 0 [place] Interpretation and review of laboratory results Abnormal [place] Lymphocytes (Bld) [#/Vol] 1.87 10*3/uL [place] Lymphocytes/100 WBC (Bld) 22 % Low 24 - 43 % [place] MCH (RBC) [Entitic mass] 32.5 pg 25.2 - 33.5 pg [place] MCHC (RBC) [Mass/Vol] 33.2 g/dL 28.4 - 34.8 g/dL [place] MCV (RBC) [Entitic vol] 97.8 fL 82.6 - 102.9 fL [place] Monocytes (Bld) [#/Vol] 0.86 10*3/uL [place] Monocytes/100 WBC (Bld) 10 % 3 - 12 % [place] Platelet mean volume (Bld) [Entitic vol] 9.8 fL 8.1 - 13.5 fL [place] Platelets (Bld) [#/Vol] NOT REPORTED [place] Platelets (Bld) [#/Vol] 178 10*3/uL [place] RBC (Bld) [#/Vol] 3.60 10*6/uL Low 3.95 - 5.11 m/uL [place] RBC morphology finding Nom (Bld) NOT REPORTED [place] Segmented neutrophils/100 WBC (Bld) 66 % High 36 - 65 % [place] Segs Absolute 5.53 [place] WBC (Bld) [#/Vol] 0.0 10*3/uL 0.0 per 100 WBC [place] WBC (Bld) [#/Vol] 8.4 10*3/uL [place] WBC Morphology NOT REPORTED [place] Lipaseon 08-25-2019 Lipase [Catalytic activity/Vol] 42 U/L 13 - 60 U/L [place] CBC auto differentialon 08-07 Basophils (Bld) [#/Vol] 0.04 10*3/uL [place] Basophils/100 WBC (Bld) 1 % 0 - 2 % [place] Differential Type NOT REPORTED [place] Eosinophils (Bld) [#/Vol] 0.08 10*3/uL [place] Eosinophils/100 WBC (Bld) 1 % 1 - 4 % [place] Erythrocyte distribution width (RBC) [Ratio] 12.9 % 11.8 - 14.4 % [place] Hematocrit (Bld) [Volume fraction] 35.9 % Low 36.3 - 47.1 % [place] Hemoglobin (Bld) [Mass/Vol] 11.9 g/dL 11.9 - 15.1 g/dL [place] Immature granulocytes (Bld) [#/Vol] 0 % 0 [place] Immature granulocytes (Bld) [#/Vol] 0.03 10*3/uL [place] Interpretation and review of laboratory results Abnormal [place] Lymphocytes (Bld) [#/Vol] 1.79 10*3/uL [place] Lymphocytes/100 WBC (Bld) 22 % Low 24 - 43 % [place] MCH (RBC) [Entitic mass] 32.3 pg 25.2 - 33.5 pg [place] MCHC (RBC) [Mass/Vol] 33.1 g/dL 28.4 - 34.8 g/dL [place] MCV (RBC) [Entitic vol] 97.6 fL 82.6 - 102.9 fL [place] Monocytes (Bld) [#/Vol] 0.75 10*3/uL [place] Monocytes/100 WBC (Bld) 9 % 3 - 12 % [place] Platelet mean volume (Bld) [Entitic vol] 10.1 fL 8.1 - 13.5 fL [place] Platelets (Bld) [#/Vol] 176 10*3/uL [place] Platelets (Bld) [#/Vol] NOT REPORTED [place] RBC (Bld) [#/Vol] 3.68 10*6/uL Low 3.95 - 5.11 m/uL [place] RBC morphology finding Nom (Bld) NOT REPORTED [place] Segmented neutrophils/100 WBC (Bld) 67 % High 36 - 65 % [place] Segs Absolute 5.61 [place] WBC (Bld) [#/Vol] 0.0 10*3/uL 0.0 per 100 WBC [place] WBC (Bld) [#/Vol] 8.3 10*3/uL [place] WBC Morphology NOT REPORTED [place] Lipaseon 08-24-2019 Interpretation and review of laboratory results Abnormal [place] Lipase [Catalytic activity/Vol] 69 U/L High 13 - 60 U/L [place] CBC auto differentialon 08-07 Basophils (Bld) [#/Vol] 0.05 10*3/uL [place] Basophils/100 WBC (Bld) 1 % 0 - 2 % [place] Differential Type NOT REPORTED [place] Eosinophils (Bld) [#/Vol] 0.13 10*3/uL [place] Eosinophils/100 WBC (Bld) 2 % 1 - 4 % [place] [place] Erythrocyte distribution width (RBC) [Ratio] 13.2 % 11.8 - 14.4 % [place] Hematocrit (Bld) [Volume fraction] 36.7 % 36.3 - 47.1 % [place] Hemoglobin (Bld) [Mass/Vol] 11.8 g/dL Low 11.9 - 15.1 g/dL [place] Immature granulocytes (Bld) [#/Vol] 0 % 0 [place] Immature granulocytes (Bld) [#/Vol] 10*3/uL [place] Interpretation and review of laboratory results Abnormal [place] Lymphocytes (Bld) [#/Vol] 2.39 10*3/uL [place] Lymphocytes/100 WBC (Bld) 28 % 24 - 43 % [place] MCH (RBC) [Entitic mass] 32.1 pg 25.2 - 33.5 pg [place] MCHC (RBC) [Mass/Vol] 32.2 g/dL 28.4 - 34.8 g/dL [place] MCV (RBC) [Entitic vol] 99.7 fL 82.6 - 102.9 fL [place] Monocytes (Bld) [#/Vol] 0.77 10*3/uL [place] Monocytes/100 WBC (Bld) 9 % 3 - 12 % [place] Platelet mean volume (Bld) [Entitic vol] 10.1 fL 8.1 - 13.5 fL [place] Platelets (Bld) [#/Vol] 174 10*3/uL [place] Platelets (Bld) [#/Vol] NOT REPORTED [place] RBC (Bld) [#/Vol] 3.68 10*6/uL Low 3.95 - 5.11 m/uL [place] RBC morphology finding Nom (Bld) NOT REPORTED [place] Segmented neutrophils/100 WBC (Bld) 60 % 36 - 65 % [place] Segs Absolute 5.22 [place], [place] WBC (Bld) [#/Vol] 0.0 10*3/uL 0.0 per 100 WBC [place] WBC (Bld) [#/Vol] 8.6 10*3/uL [place] WBC Morphology NOT REPORTED [place] Comprehensive metabolic pane nimesh 08-23-2019 Albumin [Mass/Vol] 3.4 g/dL Low 3.5 - 5.2 g/dL [place] Albumin/Globulin [Mass ratio] 1.7 {ratio} [place] ALP [Catalytic activity/Vol] 102 U/L 35 - 104 U/L [place] ALT [Catalytic activity/Vol] 34 U/L High 5 - 33 U/L [place] Anion gap [Moles/Vol] 7 mmol/L Low 9 - 17 mmol/L [place] AST [Catalytic activity/Vol] 95 U/L High <32 [place] Bilirubin Ql (U) 0.46 mg/dL 0.3 - 1.2 mg/dL [place] Bun/Cre Ratio 11 [place], [place] Calcium [Mass/Vol] 8.4 mg/dL Low 8.6 - 10. 4 mg/dL [place] Chloride [Moles/Vol] 109 mmol/L High 98 - 10 7 mmol/L [place] CO2 [Moles/Vol] 22 mmol/L 20 - 31 mmol/L [place] Creatinine [Mass/Vol] 0.66 mg/dL 0.5 - 0.9 mg/dL [place] GFR >60 >60 mL/min [place] GFR Non- >60 >60 mL/min [place] Glucose [Mass/Vol] 89 mg/dL 70 - 99 mg/dL [place] Potassium [Moles/Vol] 4.3 mmol/L 3.7 - 5.3 mmol/L [place] Protein [Mass/Vol] 5.4 g/dL Low 6.4 - 8.3 g/dL [place] Sodium [Moles/Vol] 138 mmol/L 135 - 144 mmol/L [place] Urea nitrogen [Mass/Vol] 7 mg/dL 6 - 20 mg/dL [place] Lipaseon 06-16-2020 Lipase [Catalytic activity/Vol] 96 U/L High 13 - 60 U/L [place] Metabolic Panelon 08-23-2019 GFR/1.73 sq M predicted among non-blacks MDRD (S/P/Bld) [Vol rate/Area] [place] Comment on above: Stage 1: Some [...] body mass. Additional eGFR calculator available at: http://[email or web address]_crcl_[email or web address] Otheron 08-23-2019 Interpretation and review of laboratory results Abnormal [place] CBC Auto Differentialon 08-07 Basophils (Bld) [#/Vol] 0.06 10*3/uL [place] Basophils/100 WBC (Bld) 1 % 0 - 2 % [place] Differential Type NOT REPORTED [place] Eosinophils (Bld) [#/Vol] 0.11 10*3/uL [place] Eosinophils/100 WBC (Bld) 1 % 1 - 4 % [place] Erythrocyte distribution width (RBC) [Ratio] 13.2 % 11.8 - 14.4 % [place] Hematocrit (Bld) [Volume fraction] 41.8 % 36.3 - 47.1 % [place] Hemoglobin (Bld) [Mass/Vol] 13.7 g/dL 11.9 - 15.1 g/dL [place] Immature granulocytes (Bld) [#/Vol] 0.03 10*3/uL [place] Immature granulocytes (Bld) [#/Vol] 0 % 0 [place] Interpretation and review of laboratory results Abnormal [place] Lymphocytes (Bld) [#/Vol] 2.23 10*3/uL [place] Lymphocytes/100 WBC (Bld) 24 % 24 - 43 % [place] MCH (RBC) [Entitic mass] 32.6 pg 25.2 - 33.5 pg [place] MCHC (RBC) [Mass/Vol] 32.8 g/dL 28.4 - 34.8 g/dL [place] MCV (RBC) [Entitic vol] 99.5 fL 82.6 - 102.9 fL [place] Monocytes (Bld) [#/Vol] 0.72 10*3/uL [place] Monocytes/100 WBC (Bld) 8 % 3 - 12 % [place] Platelet mean volume (Bld) [Entitic vol] 10.0 fL 8.1 - 13.5 fL [place] Platelets (Bld) [#/Vol] NOT REPORTED [place] Platelets (Bld) [#/Vol] 213 10*3/uL [place] RBC (Bld) [#/Vol] 4.20 10*6/uL 3.95 - 5.11 m/uL [place] RBC morphology finding Nom (Bld) NOT REPORTED [place] Segmented neutrophils/100 WBC (Bld) 66 % High 36 - 65 % [place] Segs Absolute 6.22 [place], [place] WBC (Bld) [#/Vol] 0.0 10*3/uL 0.0 per 100 WBC [place] WBC (Bld) [#/Vol] 9.4 10*3/uL [place] WBC Morphology NOT REPORTED [place] Comprehensive Metabolic Pane nimesh 08-22-2019 Albumin [Mass/Vol] 4.1 g/dL 3.5 - 5.2 g/dL [place] Albumin/Globulin [Mass ratio] 1.6 {ratio} [place] ALP [Catalytic activity/Vol] 109 U/L High 35 - 104 U/L [place] ALT [Catalytic activity/Vol] 13 U/L 5 - 33 U/L [place] Anion gap [Moles/Vol] 9 mmol/L 9 - 17 mmol/L [place] AST [Catalytic activity/Vol] 22 U/L <32 [place] Bilirubin Ql (U) <0.10 Low 0.3 - 1.2 mg/dL [place] Bun/Cre Ratio 13 [place], [place] Calcium [Mass/Vol] 9.2 mg/dL 8.6 - 10. 4 mg/dL [place] Chloride [Moles/Vol] 103 mmol/L 98 - 10 7 mmol/L [place] CO2 [Moles/Vol] 24 mmol/L 20 - 31 mmol/L [place] Creatinine [Mass/Vol] 0.63 mg/dL 0.5 - 0.9 mg/dL [place] GFR >60 >60 mL/min [place] GFR Non- >60 >60 mL/min [place] Glucose [Mass/Vol] 92 mg/dL 70 - 99 mg/dL [place] Interpretation and review of laboratory results Abnormal [place] Potassium [Moles/Vol] 3.8 mmol/L 3.7 - 5.3 mmol/L [place] Protein [Mass/Vol] 6.7 g/dL 6.4 - 8.3 g/dL [place] Sodium [Moles/Vol] 136 mmol/L 135 - 144 mmol/L [place] Urea nitrogen [Mass/Vol] 8 mg/dL 6 - 20 mg/dL [place] Lactic Acid, Plasmaon 2019 Lactate [Moles/Vol] 1.5 mmol/L 0.5 - 2. 2 mmol/L [place] Lactic Acid, Whole Blood NOT REPORTED 0.7 - 2.1 mmol/L [place] Lipaseon 08-22-2019 Interpretation and review of laboratory results Abnormal [place] Lipase [Catalytic activity/Vol] 255 U/L Critically high 13 - 60 U/L [place] Metabolic Panelon 08-22-2019 GFR/1.73 sq M predicted among non-blacks MDRD (S/P/Bld) [Vol rate/Area] [place] Comment on above: Average GFR for 50-5 9 years old: 93 mL/min/1.73sq m Chronic Kidney Disease: <60 mL/min/1.73sq m Kidney failure: <15 mL/min/1.73sq m eGFR calculated using average adult body mass. Additional eGFR calculator available at: http://www.[employer]/multiple_[email or web address] Stage 1: Some kidney damage normal GFR Stage 2: Mild kidney damage GFR 60-89 Stage 3: Moderate kidney damage GFR 30-59 Stage 4: Severe kidney damage GFR 15-29 Stage 5: Severe kidney damage GFR <15 ESRD - chronic treatment by dialysis or transplant Urinalysis with Microscopico n 08-22-2019 Amorphous, UA NOT REPORTED None [place] Bacteria, UA NOT REPORTED None [place] Bilirubin Urine Negative NEGATIVE [place] Casts UA NOT REPORTED /LPF [place] Color, UA YELLOW YELLOW [place] Crystals, UA NOT REPORTED None /HPF [place] Epithelial Cells UA 2 TO 5 [place], [place] Glucose, Ur Negative NEGATIVE [place] Interpretation and review of laboratory results Abnormal [place] Ketones Ql (U) Negative NEGATIVE [place] Leukocyte esterase Test strip Ql (U) Negative NEGATIVE [place] Mucus, UA NOT REPORTED None [place] Nitrite, Urine Negative NEGATIVE [place] Other Observations UA NOT REPORTED NOT REQ. [place] pH, UA 6.0 [place] Protein (U) [Mass/Vol] Negative NEGATIVE [place] RBC (U) [#/Vol] None [place] Renal Epithelial, UA NOT REPORTED 0 /HPF [place] Specific [place], UA <1.005 [facility] [place], [place] Trichomonas, UA NOT REPORTED None [facility]- [place], [place] Turbidity UA CLEAR CLEAR [facility], [place] Urinalysis Comments NOT REPORTED [facility] [place], [place] Urine Hgb Negative NEGATIVE [facility], [place] Urobilinogen, Urine Normal Normal [facility], [place] WBC, UA None [facility] [place], [place] Yeast, UA NOT REPORTED None [facility], [place] - [facility] [place], [place] CBC WITH AUTO DIFFERENTIALon 03-04-2018 Basophils Auto #/vol (Bld) 0.07 10*3/uL Invalid Interpretation Code [facility] Basophils/100 WBC Auto (Bld) 0.7 % Invalid Interpretation Code [facility] Eosinophils Auto #/vol (Bld) 0.09 10*3/uL Invalid Interpretation Code [facility] Eosinophils/100 WBC Auto (Bld) 0.9 % Invalid Interpretation Code [facility] Erythrocyte distribution width Auto Entitic volume (RBC) 12.8 % Invalid Interpretation Code 11.6 - 14.8 % [facility] Hematocrit Auto Volume Fraction (Bld) 45.0 % Invalid Interpretation Code 36 - 46 % [facility] Hemoglobin mass conc (Bld) 15.4 g/dL Invalid Interpretation Code 12 - 16 g/dL [facility] Immature granulocytes #/vol (Bld) 0.03 10*3/uL Invalid Interpretation Code [facility] Immature granulocytes/100 WBC (Bld) 0.30 % Invalid Interpretation Code [facility] Comment on above: The IG parameter is the percentage of metamyelocytes, myelocytes, and promyelocytes. Interpretation and review of laboratory results Abnormal Invalid Interpretation Code [facility] Lymphocytes Auto #/vol (Bld) 2.22 10*3/uL Invalid Interpretation Code [facility] Lymphocytes/100 WBC Auto (Bld) 21.0 % Invalid Interpretation Code [facility] MCH Auto Entitic mass (RBC) 33.6 pg Invalid Interpretation Code 26 - 34 pg [facility] MCHC Auto mass conc (RBC) 34.2 g/dL Invalid Interpretation Code 31 - 37 g/dL [facility] MCV Auto Entitic volume (RBC) 98.0 fL Invalid Interpretation Code 80 - 100 fL [facility] Monocytes Auto #/vol (Bld) 0.82 10*3/uL Invalid Interpretation Code [facility] Monocytes/100 WBC Auto (Bld) 7.8 % Invalid Interpretation Code [facility] Neutrophils Auto #/vol (Bld) 7.33 10*3/uL High [facility] Neutrophils/100 WBC Auto (Bld) 69.3 % Invalid Interpretation Code [facility] Nucleated RBC #/vol (Bld) 0.00 10*3/uL Invalid Interpretation Code [facility] Nucleated RBC/100 WBC Ratio (Bld) 0.0 % Invalid Interpretation Code [facility] Platelet mean volume Auto Entitic volume (Bld) 10.1 fL Invalid Interpretation Code 9 - 15.5 fL [facility] Platelets Auto #/vol (Bld) 254 10*3/uL Invalid Interpretation Code [facility] RBC Auto #/vol (Bld) 4.59 10*6/uL Invalid Interpretation Code [facility] WBC Auto #/vol (Bld) 10.56 10*3/uL Invalid Interpretation Code [facility] Chem 7on 03-04-2018 Anion gap 3 molar conc 15 mmol/L Invalid Interpretation Code 10 - 20 mmol/L [facility] Chloride molar conc 103 mmol/L Invalid Interpretation Code 98 - 108 mmol/L [facility] Creatinine mass conc 0.85 mg/dL Invalid Interpretation Code 0.4 - 1.1 mg/dL [facility] GFR/1.73 sq M predicted among non-blacks MDRD vol rate/area (S/P/Bld) The eGFR should be used for monitoring renal function only and not for medication dosing. Invalid Interpretation Code [facility] GFR/1.73 sq M.predicted CKD-EPI vol rate/area (S/P/Bld) 81 Invalid Interpretation Code >=60 mL/min/1.7 3 m2 [facility] Glucose mass conc 92 mg/dL Invalid Interpretation Code 65 - 99 mg/dL [facility] HCO3 molar conc 25 mmol/L Invalid Interpretation Code 21 - 32 mmol/L [facility] Potassium molar conc 4.4 mmol/L Invalid Interpretation Code 3.5 - 5.1 mmol/L [facility] Sodium molar conc 139 mmol/L Invalid Interpretation Code 135 - 145 mmol/L [facility] Urea nitrogen mass conc 7 mg/dL Low 8 - 25 mg/dL [facility] Urea nitrogen/Creatinine mass ratio 8.2 mg/mg Low [facility] Hepatic Function Panel (LFT) on 03-04-2018 Albumin mass conc 4.5 g/dL Invalid Interpretation Code 3.2 - 5.2 g/dL [facility] ALP enzyme act/vol 97 U/L Invalid Interpretation Code 40 - 150 U/L [facility] ALT enzyme act/vol 9 U/L Invalid Interpretation Code 0 - 40 U/L [facility] AST enzyme act/vol 15 U/L Invalid Interpretation Code 0 - 45 U/L [facility] Bilirubin mass conc mg/dL Invalid Interpretation Code 0 - 1.3 mg/dL [facility] Bilirubin.conjugated mass conc mg/dL Invalid Interpretation Code 0 - 0.4 mg/dL [facility] Interpretation and review of laboratory results Normal Invalid Interpretation Code [facility] Protein mass conc 7.2 g/dL Invalid Interpretation Code 6 - 8 g/dL [facility] Lipaseon 03-04-2018 Lipase enzyme act/vol 179 U/L High 15 - 6 5 U/L [facility] Otheron 03-04-2018 Extra Tube Hold for add-ons. Invalid Interpretation Code [facility] Comment on above: Auto resulted. Interpretation and review of laboratory results Abnormal Invalid Interpretation Code [facility] URINALYSISon 03-04-2018 Bacteria Auto Ql (U) Rare Abnormal None Se en /hpf [facility] Bilirubin Ql (U) Negative Invalid Interpretation Code Negative [facility] Clarity Refractometry automated Nom (U) Clear Invalid Interpretation Code Clear [facility] Color Auto Nom (U) Colorless Invalid Interpretation Code Colorless, Yellow [facility] Epithelial cells.squamous Auto #/area (Urine sed) 1 Invalid Interpretation Code [facility] Glucose Automated test strip mass conc (U) Negative Invalid Interpretation Code Negative mg/dL [facility] Hemoglobin Automated test strip Ql (U) Negative Invalid Interpretation Code Negative [facility] Interpretation and review of laboratory results Abnormal Invalid Interpretation Code [facility] Ketones mass conc (U) Negative Invalid Interpretation Code Negative mg/dL [facility] Leukocyte esterase Automated test strip Ql (U) Negative Invalid Interpretation Code Negative [facility] Nitrite Automated test strip Ql (U) Negative Invalid Interpretation Code Negative [facility] pH Test strip (U) 7.0 [pH] Invalid Interpretation Code [facility] Protein mass conc (U) Negative Invalid Interpretation Code Negative mg/dL [facility] RBC Auto #/area (Urine sed) 2 Invalid Interpretation Code [facility] Specific gravity Automated test strip Relative Density (U) 1.004 Low [facility] Urobilinogen Test strip Qn (U) <2.0 Invalid Interpretation Code <2.0 mg/dL [facility] WBC Auto #/area (Urine sed) <1 Invalid Interpretation Code [facility] Microscopic examinat ion is performed on all urinalysis samples and only positive findings are reported. The test for blood on the chemical analytic portion of urinalysis may also be positive due to hemoglobinuria and myoglobinuria and if red blood cells are present they are quantified by microscopic examination. Invalid Interpretation Code [facility] BMPon 08-24-2017 Anion gap 18 mmol/L Invalid Interpretation Code 10 - 20 mmol/L [facility] Bicarbonate (HCO3) 27 mmol/L Invalid Interpretation Code 21 - 32 mmol/L [facility] BUN/Creatinine Ratio 10.1 mg/mg Invalid Interpretation Code 10.0 - 20.0 [facility] Calcium 10.6 mg/dL High 8.4 - 10.2 mg/dL [facility] Chloride 101 mmol/L Invalid Interpretation Code 98 - 108 mmol/L [facility] Creatinine 0.69 mg/dL Invalid Interpretation Code 0.4 - 1.1 mg/dL [facility] eGFR (non-black) 103 mL/min/{1.73_m2} Invalid Interpretation Code >=60 [facility] eGFR (non-black) The eGFR should be u sed for monitoring renal function only and not for medication dosing. Invalid Interpretation Code [facility] Glucose mass conc 105 mg/dL High 65 - 99 mg/dL [facility] Interpretation and review of laboratory results Abnormal Invalid Interpretation Code [facility] Potassium molar conc 4.1 mmol/L Invalid Interpretation Code 3.5 - 5.1 mmol/L [facility] Sodium 142 mmol/L Invalid Interpretation Code 135 - 145 mmol/L [facility] Urea nitrogen 7 mg/dL Low 8 - 25 mg/dL [facility] CBC Auto Differentialon 08-07 Basophils Auto #/vol (Bld) 0.08 K/mcL Invalid Interpretation Code 0.00 - 0.30 [facility] Basophils/100 WBC Auto (Bld) 0.6 % Invalid Interpretation Code [facility] Eosinophils 0.05 K/mcL Invalid Interpretation Code 0.00 - 0.50 [facility] Eosinophils/100 leukocytes 0.4 % Invalid Interpretation Code [facility] Erythrocyte distribution width Auto Entitic volume (RBC) 12.2 % Invalid Interpretation Code 11.6 - 14.8 % [facility] Erythrocytes (RBC) 4.60 M/mcL Invalid Interpretation Code 4.00 - 5.20 [facility] Hematocrit (HCT) 43.4 % Invalid Interpretation Code 36 - 46 % [facility] Hemoglobin mass conc (Bld) 15.2 g/dL Invalid Interpretation Code 12 - 16 g/dL [facility] Immature granulocytes #/vol (Bld) 0.05 K/mcL Invalid Interpretation Code 0.00 - 0.30 [facility] Immature granulocytes/100 WBC (Bld) 0.40 % Invalid Interpretation Code [facility] Comment on above: The IG parameter is the percentage of metamyelocytes, myelocytes, and promyelocytes. Lymphocytes 2.40 K/mcL Invalid Interpretation Code 0.90 - 4.00 [facility] Lymphocytes/100 leukocytes 18.1 % Invalid Interpretation Code [facility] MCH 33.0 pg Invalid Interpretation Code 26 - 34 pg [facility] MCHC mass conc (RBC) 35.0 g/dL Invalid Interpretation Code 31 - 37 g/dL [facility] MCV 94.3 fL Invalid Interpretation Code 80 - 100 fL [facility] Monocytes 0.85 K/mcL Invalid Interpretation Code 0.30 - 0.90 [facility] Monocytes/100 leukocytes 6.4 % Invalid Interpretation Code [facility] Neutrophils 9.81 K/mcL High 1.70 - 7.00 [facility] Neutrophils/100 WBC Auto (Bld) 74.1 % Invalid Interpretation Code [facility] Nucleated erythrocytes 0.00 K/mcL Invalid Interpretation Code 0.00 - 0.00 [facility] Nucleated erythrocytes/100 erythrocytes 0.0 % Invalid Interpretation Code [facility] Platelet mean volume (PMV) 10.0 fL Invalid Interpretation Code 9 - 15.5 fL [facility] Platelets 242 K/mcL Invalid Interpretation Code 150 - 400 [facility] WBC (Leukocytes) 13.24 K/mcL High 4.50 - 11.00 [facility] CBC w/ Diffon 08-24-2017 Creatinine The following orders were created for panel order CBC w/ Diff. Procedure Abnormality Status --------- ------ CBC Auto Differential[[id number]] Abnormal Final result Please view results for [...] and demonstrated a prominent signal loss on [id number] images on MRI performed 09/06/2014, compatible with [...] The ovaries probably remain.5. Small left adrenal adenoma.JRS/galinaWorkstaticamille n ID: [id number] by: PONCHO GALAVIZ on ThuAug 24, 2017 3:53:38 PM EDTTranscribed by: RON KELLOGG on ThuAug 24, 2017 4:00:38 PM EDTFinalized by: PONCHO GAALVIZ on ThuAug 24, 2017 4:03:34 PM EDT Normal [facility] Comment on above: Order Comment: Reaso n for exam?:abd painInjury/Trauma or Illness?:Illness/OtherHow long have you had these symptoms (acute/chronic)?:ChronicType of Exam?:Subsequent/Follow-upAdditional signs and symptoms?:chronic pancreatitis CT Abdomen Pelvis With IV Co ntrast Onlyon 08-24-2017 CT Abdomen Pelvis With IV Contrast Only [facility] 4:06 PM EDT EXAMINATION: [...] and demonstrated a prominent signal loss on [id number]-wl-[id number] images on MRI performed 09/06/2014, compatible with [...] probably remain. 5. Small left adrenal adenoma. [employer] Workstation ID: [id number] Invalid Interpretation Code [employer] [facility] CT Abdomen Pelvis With IV [...] and demonstrated a prominent signal loss on [id number]-[id number] images on MRI performed 09/06/2014, compatible with [...] suspicious focal osseous lesions. Invalid Interpretation Code [facility] CT Abdomen Pelvis With IV Contrast [...] probably remain. 5. Small left adrenal adenoma. [employer] Work[employer] ID: [id number] Invalid Interpretation Code [facility] [facility] Hepatic Function Panel (LFT) on 08-24-2017 Alanine aminotransferase (ALT) 14 U/L Invalid Interpretation Code 0 - 40 U/L [facility] Albumin 4.7 g/dL Invalid Interpretation Code 3.2 - 5.2 g/dL [facility] Alkaline phosphatase (ALP) 91 U/L Invalid Interpretation Code 40 - 150 U/L [facility] Aspartate aminotransferase (AST) 17 U/L Invalid Interpretation Code 0 - 45 U/L [facility] Bilirubin (conjugated) mg/dL Invalid Interpretation Code 0 - 0.4 mg/dL [facility] Bilirubin (total) mg/dL Invalid Interpretation Code 0 - 1.3 mg/dL [facility] Interpretation and review of laboratory results Normal Invalid Interpretation Code [facility] Protein 7.4 g/dL Invalid Interpretation Code 6 - 8 g/dL [facility] Lactic Acid, Plasmaon 2017 Lactate 1.0 mmol/L Invalid Interpretation Code 0.6 - 2 mmol/L [facility] Light Blue Topon 08-24-2017 Extra Tube Hold for add-ons. Invalid Interpretation Code [facility] Comment on above: Auto resulted. Lipaseon 08-24-2017 Lipase 51 U/L Invalid Interpretation Code 15 - 65 U/L [facility] [place] Topon 08-24-2017 [place] Top Invalid Interpretation Code [facility] S[place] Drawon 08-24-2017 Creatinine The following orders were created for panel order [place] Draw. Procedure Abnormality Status --------- ------ Gold Top[[id number]] Final result Light Blue Top[[id number]] Final result [place] Top[[id number]] Final result Please view results for these tests on the individual orders. Invalid Interpretation Code [facility] 08-[facility]-2017 Bilirubin Ql (U) Negative Invalid Interpretation Code Negative [facility] Blood, Urine Negative Invalid Interpretation Code Negative [facility] Interpretation and review of laboratory results Abnormal Invalid Interpretation Code [facility] Nitrite, Urine Negative Invalid Interpretation Code Negative [facility] Squamous Epithelial 5 /hpf High 0 - [address] [facility] Transitional Epithelial <1 Invalid Interpretation Code 0 - 1 /hpf [facility] Urine, bacteria in sediment Rare Abnormal None Seen /hpf [facility] Urine, clarity Hazy Abnormal Clear [facility] Urine, color Yellow Invalid Interpretation Code Colorless, Yellow [facility] Urine, erythrocytes 1 /hpf Invalid Interpretation Code 0 - 3 [facility] Urine, glucose presence Negative Invalid Interpretation Code Negative mg/dL [facility] Urine, ketones presence Negative Invalid Interpretation Code Negative mg/dL [facility] Urine, leukocyte esterase presence Negative Invalid Interpretation Code Negative [facility] Urine, pH 7.0 [pH] Invalid Interpretation Code 5.0 - 7.0 [facility] Urine, protein Negative Invalid Interpretation Code Negative mg/dL [facility] Urine, specific gravity 1.006 1 Invalid Interpretation Code 1.005 - 1.025 [facility] Urine, urobilinogen <2.0 Invalid Interpretation Code <2.0 mg/dL [facility] WBCs, Urine 1 /hpf Invalid Interpretation Code 0 - 5 [facility] Urinalysis Microscopic examinat ion is performed on all urinalysis samples and only positive findings are reported. The test for blood on the chemical analytic portion of urinalysis may also be positive due to hemoglobinuria and myoglobinuria and if red blood cells are present they are quantified by microscopic examination. Invalid Interpretation Code [facility] BMPon 06-09-2017 Anion gap 18 mmol/L Invalid Interpretation Code 10 - 20 mmol/L [facility] Bicarbonate (HCO3) 21 mmol/L Invalid Interpretation Code 21 - 32 mmol/L [facility] BUN/Creatinine Ratio 11.0 mg/mg Invalid Interpretation Code 10.0 - 20.0 [facility] Calcium 10.2 mg/dL Invalid Interpretation Code 8.4 - 10.2 mg/dL [facility] Chloride 102 mmol/L Invalid Interpretation Code 98 - 108 mmol/L [facility] Creatinine 0.73 mg/dL Invalid Interpretation Code 0.4 - 1.1 mg/dL [facility] eGFR (non-black) The eGFR should be u sed for monitoring renal function only and not for medication dosing. Invalid Interpretation Code [facility] eGFR (non-black) 98 mL/min/{1.73_m2} Invalid Interpretation Code >=60 [facility] Glucose 80 mg/dL Invalid Interpretation Code 65 - 99 mg/dL [facility] Potassium 4.3 mmol/L Invalid Interpretation Code 3.5 - 5.1 mmol/L [facility] Sodium 137 mmol/L Invalid Interpretation Code 135 - 145 mmol/L [facility] Urea nitrogen 8 mg/dL Invalid Interpretation Code 8 - 25 mg/dL [facility] CBC Auto Differentialon 04-0 Basophils 0.07 K/mcL Invalid Interpretation Code 0.00 - 0.30 [facility] Basophils/100 leukocytes 0.7 % Invalid Interpretation Code [facility] Eosinophils 0.10 K/mcL Invalid Interpretation Code 0.00 - 0.50 [facility] Eosinophils/100 leukocytes 1.0 % Invalid Interpretation Code [facility] Erythrocytes (RBC) 4.75 M/mcL Invalid Interpretation Code 4.00 - 5.20 [facility] Erythrocytes (RBC) 0.00 K/mcL Invalid Interpretation Code 0.00 - 0.00 [facility] Hematocrit (HCT) 46.1 % High 36 - 46 % [facility] Hemoglobin (HGB) 16.1 g/dL High 12 - 16 g/dL [facility] IG Absolute 0.02 K/mcL Invalid Interpretation Code 0.00 - 0.30 [facility] IG Percent 0.20 % Invalid Interpretation Code [facility] Lymphocytes 1.75 K/mcL Invalid Interpretation Code 0.90 - 4.00 [facility] Lymphocytes/100 leukocytes 17.9 % Invalid Interpretation Code [facility] MCH 33.9 pg Invalid Interpretation Code 26 - 34 pg [facility] MCHC 34.9 g/dL Invalid Interpretation Code 31 - 37 g/dL [facility] MCV 97.1 fL Invalid Interpretation Code 80 - 100 fL [facility] Monocytes 0.88 K/mcL Invalid Interpretation Code 0.30 - 0.90 [facility] Monocytes/100 leukocytes 9.0 % Invalid Interpretation Code [facility] Neutrophils 6.98 K/mcL Invalid Interpretation Code 1.70 - 7.00 [facility] Neutrophils/100 leukocytes 71.2 % Invalid Interpretation Code [facility] Nucleated erythrocytes/100 erythrocytes 0.0 % Invalid Interpretation Code [facility] Platelet mean volume (PMV) 10.9 fL Invalid Interpretation Code 9 - 15.5 fL [facility] Platelets 223 K/mcL Invalid Interpretation Code 150 - 400 [facility] RDW-CA 12.8 % Invalid Interpretation Code 11.6 - 14.8 % [facility] WBC (Leukocytes) 9.80 K/mcL Invalid Interpretation Code 4.50 - 11.00 [facility] Interpretation and review of laboratory results Abnormal Invalid Interpretation Code [facility] CBC w/ Diffon 06-09-2017 Creatinine The following orders were created for panel order CBC w/ Diff. Procedure Abnormality Status --------- ------ CBC Auto Differential[[id number]] Abnormal Final result Please view results for these tests on the individual orders. Invalid Interpretation Code [facility] Hepatic Function Panel (LFT) on 06-09-2017 Alanine aminotransferase (ALT) 10 U/L Invalid Interpretation Code 0 - 40 U/L [facility] Albumin 4.4 g/dL Invalid Interpretation Code 3.2 - 5.2 g/dL [facility] Alkaline phosphatase (ALP) 89 U/L Invalid Interpretation Code 40 - 150 U/L [facility] Aspartate aminotransferase (AST) 20 U/L Invalid Interpretation Code 0 - 45 U/L [facility] Bilirubin (conjugated) mg/dL Invalid Interpretation Code 0 - 0.4 mg/dL [facility] Bilirubin (total) mg/dL Invalid Interpretation Code 0 - 1.3 mg/dL [facility] Interpretation and review of laboratory results Normal Invalid Interpretation Code [facility] Protein 7.3 g/dL Invalid Interpretation Code 6 - 8 g/dL [facility] Lipaseon 06-09-2017 Lipase 50 U/L Invalid Interpretation Code 15 - 65 U/L [facility] [place] Drawon 06-09-2017 Creatinine The following orders were created for panel order [place] Draw. Procedure Abnormality Status --------- ------ Urine Container[[id number]] Final result Please view results for these tests on the individual orders. Invalid Interpretation Code [facility] Urinalysison 06-09-2017 Bilirubin, Urine Negative Invalid Interpretation Code Negative [facility] Blood, Urine Negative Invalid Interpretation Code Negative [facility] Calcium Many Abnormal None Seen /hpf [facility] Mucus, Urine Rare Invalid Interpretation Code None Seen, Rare /lpf [facility] Nitrite, Urine Negative Invalid Interpretation Code Negative [facility] RBCs, Urine 1 /hpf Invalid Interpretation Code 0 - 3 [facility] Squamous Epithelial 4 /hpf Invalid Interpretation Code 0 - 4 [facility] Urine, bacteria in sediment None Seen Invalid Interpretation Code None Seen /hpf [facility] Urine, clarity Cloudy Abnormal Clear [facility] Urine, color Yellow Invalid Interpretation Code Colorless, Yellow [facility] Urine, glucose presence Negative Invalid Interpretation Code Negative mg/dL [facility] Urine, ketones presence Trace Abnormal Negative mg/dL [facility] Urine, leukocyte esterase presence Negative Invalid Interpretation Code Negative [facility] Urine, pH 5.0 [pH] Invalid Interpretation Code 5.0 - 7.0 [facility] Urine, protein Negative Invalid Interpretation Code Negative mg/dL [facility] Urine, specific gravity 1.024 1 Invalid Interpretation Code 1.005 - 1.025 [facility] Urine, urobilinogen 2.0 mg/dL Abnormal <2.[address] [facility] WBCs, Urine 1 /hpf Invalid Interpretation Code 0 - 5 [facility] Urinalysis Microscopic examinat ion is performed on all urinalysis samples and only positive findings are reported. The test for blood on the chemical analytic portion of urinalysis may also be positive due to hemoglobinuria and myoglobinuria and if red blood cells are present they are quantified by microscopic examination. Invalid Interpretation Code [facility] Urine Containeron 06-09-2017 Urine Container Invalid Interpretation Code [facility] CBCon 05-15-2017 Erythrocytes (RBC) 3.76 M/mcL Low 4.00 - 5.20 [facility] Erythrocytes (RBC) 0.00 K/mcL Invalid Interpretation Code 0.00 - 0.00 [facility] Hematocrit (HCT) 37.1 % Invalid Interpretation Code 36 - 46 % [facility] Hemoglobin (HGB) 12.4 g/dL Invalid Interpretation Code 12 - 16 g/dL [facility] MCH 33.0 pg Invalid Interpretation Code 26 - 34 pg [facility] MCHC 33.4 g/dL Invalid Interpretation Code 31 - 37 g/dL [facility] MCV 98.7 fL Invalid Interpretation Code 80 - 100 fL [facility] Nucleated erythrocytes/100 erythrocytes 0.0 % Invalid Interpretation Code [facility] Platelet mean volume (PMV) 9.9 fL Invalid Interpretation Code 9 - 15.5 fL [facility] Platelets 197 K/mcL Invalid Interpretation Code 150 - 400 [facility] RDW-CA 12.6 % Invalid Interpretation Code 11.6 - 14.8 % [facility] WBC (Leukocytes) 7.55 K/mcL Invalid Interpretation Code 4.50 - 11.00 [facility] Comprehensive Metabolic Pane nimesh 05-15-2017 Alanine aminotransferase (ALT) 9 U/L Invalid Interpretation Code 0 - 40 U/L [facility] Albumin 3.3 g/dL Invalid Interpretation Code 3.2 - 5.2 g/dL [facility] Alkaline phosphatase (ALP) 73 U/L Invalid Interpretation Code 40 - 150 U/L [facility] Anion gap 15 mmol/L Invalid Interpretation Code 10 - 20 mmol/L [facility] Aspartate aminotransferase (AST) 13 U/L Invalid Interpretation Code 0 - 45 U/L [facility] Bicarbonate (HCO3) 23 mmol/L Invalid Interpretation Code 21 - 32 mmol/L [facility] Bilirubin (total) 0.2 mg/dL Invalid Interpretation Code 0 - 1.3 mg/dL [facility] BUN/Creatinine Ratio 9.4 mg/mg Low 10.0 - 20.0 [facility] Calcium 8.4 mg/dL Invalid Interpretation Code 8.4 - 10.2 mg/dL [facility] Chloride 108 mmol/L Invalid Interpretation Code 98 - 108 mmol/L [facility] Creatinine 0.64 mg/dL Invalid Interpretation Code 0.4 - 1.1 mg/dL [facility] eGFR (non-black) The eGFR should be u sed for monitoring renal function only and not for medication dosing. Invalid Interpretation Code [facility] eGFR (non-black) 107 mL/min/{1.73_m2} Invalid Interpretation Code >=60 [facility] Glucose 91 mg/dL Invalid Interpretation Code 65 - 99 mg/dL [facility] Potassium 4.0 mmol/L Invalid Interpretation Code 3.5 - 5.1 mmol/L [facility] Protein 5.3 g/dL Low 6 - 8 g/dL [facility] Sodium 142 mmol/L Invalid Interpretation Code 135 - 145 mmol/L [facility] Urea nitrogen 6 mg/dL Low 8 - 25 mg/dL [facility] Lipaseon 05-15-2017 Interpretation and review of laboratory results Normal Invalid Interpretation Code [facility] Lipase 31 U/L Invalid Interpretation Code 15 - 65 U/L [facility] Lipid Panelon 05-15-2017 Cholesterol 193 mg/dL Invalid Interpretation Code 100 - 199 mg/dL [facility] Cholesterol to HDL Ratio 7.1 {ratio} Invalid Interpretation Code [facility] HDL Cholesterol 27 mg/dL Low 40 - 59 mg/dL [facility] HDL Cholesterol 166 mg/dL Invalid Interpretation Code [facility] Interpretation and review of laboratory results Abnormal Invalid Interpretation Code [facility] LDL Cholesterol 108 mg/dL Invalid Interpretation Code 10 - 130 mg/dL [facility] Triglyceride 291 mg/dL High 30 - 150 mg/dL [facility] BMPon 05-14-2017 Anion gap 18 mmol/L Invalid Interpretation Code 10 - 20 mmol/L [facility] Bicarbonate (HCO3) 25 mmol/L Invalid Interpretation Code 21 - 32 mmol/L [facility] BUN/Creatinine Ratio 11.8 mg/mg Invalid Interpretation Code 10.0 - 20.0 [facility] Calcium 10.7 mg/dL High 8.4 - 10.2 mg/dL [facility] Chloride 102 mmol/L Invalid Interpretation Code 98 - 108 mmol/L [facility] Creatinine 0.68 mg/dL Invalid Interpretation Code 0.4 - 1.1 mg/dL [facility] eGFR (non-black) The eGFR should be u sed for monitoring renal function only and not for medication dosing. Invalid Interpretation Code [facility] eGFR (non-black) 105 mL/min/{1.73_m2} Invalid Interpretation Code >=60 [facility] Glucose 86 mg/dL Invalid Interpretation Code 65 - 99 mg/dL [facility] Potassium 4.0 mmol/L Invalid Interpretation Code 3.5 - 5.1 mmol/L [facility] Sodium 141 mmol/L Invalid Interpretation Code 135 - 145 mmol/L [facility] Urea nitrogen 8 mg/dL Invalid Interpretation Code 8 - 25 mg/dL [facility] CBC Auto Differentialon 03-0 Basophils 0.09 K/mcL Invalid Interpretation Code 0.00 - 0.30 [facility] Basophils/100 leukocytes 0.8 % Invalid Interpretation Code [facility] Eosinophils 0.08 K/mcL Invalid Interpretation Code 0.00 - 0.50 [facility] Eosinophils/100 leukocytes 0.7 % Invalid Interpretation Code [facility] Erythrocytes (RBC) 0.00 K/mcL Invalid Interpretation Code 0.00 - 0.00 [facility] Erythrocytes (RBC) 4.96 M/mcL Invalid Interpretation Code 4.00 - 5.20 [facility] Hematocrit (HCT) 48.5 % High 36 - 46 % [facility] Hemoglobin (HGB) 16.6 g/dL High 12 - 16 g/dL [facility] IG Absolute 0.04 K/mcL Invalid Interpretation Code 0.00 - 0.30 [facility] IG Percent 0.40 % Invalid Interpretation Code [facility] Interpretation and review of laboratory results Abnormal Invalid Interpretation Code [facility] Lymphocytes 1.89 K/mcL Invalid Interpretation Code 0.90 - 4.00 [facility] Lymphocytes/100 leukocytes 17.7 % Invalid Interpretation Code [facility] MCH 33.5 pg Invalid Interpretation Code 26 - 34 pg [facility] MCHC 34.2 g/dL Invalid Interpretation Code 31 - 37 g/dL [facility] MCV 97.8 fL Invalid Interpretation Code 80 - 100 fL [facility] Monocytes 0.74 K/mcL Invalid Interpretation Code 0.30 - 0.90 [facility] Monocytes/100 leukocytes 6.9 % Invalid Interpretation Code [facility] Neutrophils 7.86 K/mcL High 1.70 - 7.00 [facility] Neutrophils/100 leukocytes 73.5 % Invalid Interpretation Code [facility] Nucleated erythrocytes/100 erythrocytes 0.0 % Invalid Interpretation Code [facility] Platelet mean volume (PMV) 9.8 fL Invalid Interpretation Code 9 - 15.5 fL [facility] Platelets 275 K/mcL Invalid Interpretation Code 150 - 400 [facility] RDW-CA 12.8 % Invalid Interpretation Code 11.6 - 14.8 % [facility] WBC (Leukocytes) 10.70 K/mcL Invalid Interpretation Code 4.50 - 11.00 [facility] CBC w/ Diffon 05-14-2017 Creatinine The following orders were created for panel order CBC w/ Diff. Procedure Abnormality Status --------- ------ CBC Auto Differential[[id number]] Abnormal Final result Please view results for [...] appendix in the left lower pelvis.Workstation ID: [id number] by: SARAH ANN on ThuMay 14, 2017 4:08:10 PM ESTTranscribed by: SARAH ANN on ThuMay 14, 2017 4:08:10 PM ESTFinalized by: SARAH ANN on ThuMay 14, 2017 4:08:10 PM EST Normal [facility] Comment on above: Order Comment: Reaso [...] at L1-L2 and L4-L5. Invalid Interpretation Code [employer] [facility] CT Abdomen Pelvis With IV Contrast Only Interface, Rad [facility] - 05/14/2017 4:10 PM EST EXAMINATION: CT [...] in the left lower pelvis. Workstation ID: [id number] Invalid Interpretation Code [email or web address] CT Abdomen Pelvis With IV [...] in the left lower pelvis. Workstation ID: [id number] Invalid Interpretation Code [facility] Ruff Topon 05-14-2017 Extra Tube Hold for add-ons. Invalid Interpretation Code [facility] Hepatic Function Panel (LFT) on 05-14-2017 Alanine aminotransferase (ALT) 13 U/L Invalid Interpretation Code 0 - 40 U/L [facility] Albumin 4.8 g/dL Invalid Interpretation Code 3.2 - 5.2 g/dL [facility] Alkaline phosphatase (ALP) 102 U/L Invalid Interpretation Code 40 - 150 U/L [facility] Aspartate aminotransferase (AST) 20 U/L Invalid Interpretation Code 0 - 45 U/L [facility] Bilirubin (conjugated) mg/dL Invalid Interpretation Code 0 - 0.4 mg/dL [facility] Bilirubin (total) 0.2 mg/dL Invalid Interpretation Code 0 - 1.3 mg/dL [facility] Interpretation and review of laboratory results Normal Invalid Interpretation Code [facility] Protein 7.9 g/dL Invalid Interpretation Code 6 - 8 g/dL [facility] Lipaseon 05-14-2017 Lipase 137 U/L High 15 - 65 U/L [facility] [place] Topon 05-14-2017 [place] Top Invalid Interpretation Code [facility] Suring Drawon 05-14-2017 Creatinine The following orders were created for panel order [place] Draw. Procedure Abnormality Status --------- ------ Gold Top[[id number]] Final result Light Blue Top[[id number]] Final result Ruff Top[[id number]] Final result [place] Top[[id number]] Final result Please view results for these tests on the individual orders. Invalid Interpretation Code [facility] Urinalysison 05-14-2017 Bilirubin, Urine Negative Invalid Interpretation Code Negative [facility] Blood, Urine Negative Invalid Interpretation Code Negative [facility] Interpretation and review of laboratory results Abnormal Invalid Interpretation Code [facility] Mucus, Urine Rare Invalid Interpretation Code None Seen, Rare /lpf [facility] Nitrite, Urine Negative Invalid Interpretation Code Negative [facility] RBCs, Urine 2 /hpf Invalid Interpretation Code 0 - 3 [facility] Squamous Epithelial 3 /hpf Invalid Interpretation Code 0 - 4 [facility] Urine, bacteria in sediment Rare Abnormal None Seen /hpf [facility] Urine, clarity Clear Invalid Interpretation Code Clear [facility] Urine, color Yellow Invalid Interpretation Code Colorless, Yellow [facility] Urine, glucose presence Negative Invalid Interpretation Code Negative mg/dL [facility] Urine, ketones presence Negative Invalid Interpretation Code Negative mg/dL [facility] Urine, leukocyte esterase presence Negative Invalid Interpretation Code Negative [facility] Urine, pH 5.0 [pH] Invalid Interpretation Code 5.0 - 7.0 [facility] Urine, protein Negative Invalid Interpretation Code Negative mg/dL [facility] Urine, specific gravity 1.006 1 Invalid Interpretation Code 1.005 - 1.025 [facility] Urine, urobilinogen <2.0 Invalid Interpretation Code <2.0 mg/dL [facility] WBCs, Urine 1 /hpf Invalid Interpretation Code 0 - 5 [facility] Urinalysis Microscopic examinat ion is performed on all urinalysis samples and only positive findings are reported. The test for blood on the chemical analytic portion of urinalysis may also be positive due to hemoglobinuria and myoglobinuria and if red blood cells are present they are quantified by microscopic examination. Invalid Interpretation Code [facility] Vital Signs Date Time Vital Sign Value Performing Clinician Facility 11-17-2024 16:30-0400 Diastolic blood pressure 72 mm[Hg] Josse Romo MD Work Phone: [facility] 11-17-2024 16:30-0400 Heart rate 78 /min Josse Romo MD Work Phone: [facility] 11-17-2024 16:30-0400 Respiratory rate 16 /min Josse Romo MD Work Phone: [facility] 11-17-2024 16:30-0400 SaO2% (BldA) [Mass fraction] 98 % Josse Romo MD Work Phone: [facility] 11-17-2024 16:30-0400 Systolic blood pressure 122 mm[Hg] Josse Romo MD Work Phone: [facility] 11-17-2024 15:21-0400 Body temperature 97.9 [degF] Josse Romo MD Work Phone: [facility] 11-17-2024 14:13-0400 Body height 157.5 cm Josse Romo MD Work Phone: [facility] 11-17-2024 14:13-0400 Body mass index (BMI) [Ratio] 21.95 kg/m2 Josse Romo MD Work Phone: [facility] 11-17-2024 14:13-0400 Body weight 54.43 kg Josse Romo MD Work Phone: [facility] 11-09-2024 07:01-0400 Body temperature 98.29 [degF] Raji Gilliam MD Work Phone: [facility] [employer] 11-09-2024 07:01-0400 Diastolic blood pressure 84 mm[Hg] [facility] 11-09-2024 07:01-0400 Heart rate 89 /min Raji Gilliam MD [facility] [employer] 11-09-2024 07:01-0400 Respiratory rate 16 /min Raji [facility]illiam MD [facility] 11-09-2024 07:01-0400 SaO2% (BldA) [Mass fraction] 97 % Raji Gilliam MD Work Phone: [facility] [employer] 11-09-2024 07:01-0400 Systolic blood pressure 131 mm[Hg] Raji Gilliam MD Work Phone: [facility] [employer] 11-09-2024 00:25-0400 Body mass index (BMI) [Ratio] 22.09 kg/m2 Raji Gilliam MD Work Phone: [facility] 11-09-2024 00:25-0400 Body weight 54.8 kg Raji Gilliam MD Work Phone: [facility] 11-07-2024 10:47-0400 Body height 157.5 cm Raji Gilliam MD Work Phone: [facility] 11-02-2024 12:55-0400 Body height 157.5 cm Lindsey Montse ELECTRONIC TRAIN CONTROL TECHNICIAN.[employer] PRESS OPERATOR Work Phone: [facility] 11-02-2024 12:55-0400 Body mass index (BMI) [Ratio] 22.09 kg/m2 Lindsey Montse ELECTRONIC TRAIN CONTROL TECHNICIAN.[employer] PRESS OPERATOR Work Phone: [facility] 11-02-2024 12:55-0400 Body weight 54.8 kg Lindsey Montse ELECTRONIC TRAIN CONTROL TECHNICIAN.[employer] PRESS OPERATOR Work Phone: [facility] 11-02-2024 12:55-0400 Diastolic blood pressure 75 mm[Hg] Lindsey Montse ELECTRONIC TRAIN CONTROL TECHNICIAN.[employer] PRESS OPERATOR Work Phone: [facility] 11-02-2024 12:55-0400 Heart rate 92 /min Lindsey Montse ELECTRONIC TRAIN CONTROL TECHNICIAN.[employer] PRESS OPERATOR Work Phone: [facility] 11-02-2024 12:55-0400 SaO2% (BldA) [Mass fraction] 99 % Lindsey Montse ELECTRONIC TRAIN CONTROL TECHNICIAN.[employer] PRESS OPERATOR Work Phone: [facility] 11-02-2024 12:55-0400 Systolic blood pressure 125 mm[Hg] Lindsey Montse ELECTRONIC TRAIN CONTROL TECHNICIAN.[employer]O PRESS OPERATOR Work Phone: [facility] 10-28-2024 16:50-0400 Diastolic blood pressure 83 mm[Hg] [facility] 10-28-2024 16:50-0400 Heart rate 81 /min [facility] 10-28-2024 16:50-0400 Respiratory rate 20 /min [facility] 10-28-2024 16:50-0400 SaO2% (BldA) [Mass fraction] 99 % [facility] 10-28-2024 16:50-0400 Systolic blood pressure 135 mm[Hg] [facility] 10-28-2024 14:33-0400 Body height 157.48 cm [facility] 10-28-2024 14:33-0400 Body temperature 98.3 [degF] [facility] 10-28-2024 14:33-0400 Body weight 54.3 kg [facility] 10-19-2024 22:50-0400 Body temperature 97.9 [degF] [facility] 10-19-2024 22:50-0400 Diastolic blood pressure 74 mm[Hg] [facility] 10-19-2024 22:50-0400 Heart rate 81 /min [facility] 10-19-2024 22:50-0400 Respiratory rate 18 /min [facility] 10-19-2024 22:50-0400 SaO2% (BldA) [Mass fraction] 99 % [facility] 10-19-2024 22:50-0400 Systolic blood pressure 140 mm[Hg] [facility] 10-19-2024 16:47-0400 Body height 157.48 cm [facility] 10-19-2024 16:47-0400 Body weight 55.2 kg [facility] 09-27-2024 14:00-0400 Diastolic blood pressure 71 mm[Hg] Tasha Zamora MD Work Phone: [facility] 09-27-2024 14:00-0400 Heart rate 93 /min Tasha Zamora MD Work Phone: [facility] 09-27-2024 14:00-0400 Respiratory rate 17 /min Tasha Zamora MD Work Phone: [facility] [employer] [facility] 09-27-2024 14:00-0400 SaO2% (BldA) [Mass fraction] 97 % Tasha Zamora MD Work Phone: [employer] 09-27-2024 14:00-0400 Systolic blood pressure 129 mm[Hg] Tasha Zamora MD Work Phone: [facility] 09-27-2024 10:48-0400 Body temperature 99 [degF] Tasha Zamora MD Work Phone: [facility] 09-20-2024 21:30-0400 Diastolic blood pressure 80 mm[Hg] Tasha Zamora MD Work Phone: [facility] 09-20-2024 21:30-0400 Heart rate 77 /min Tasha Zamora MD Work Phone: [facility] 09-20-2024 21:30-0400 Respiratory rate 18 /min Tasha Zamora MD Work Phone: [facility] 09-20-2024 21:30-0400 SaO2% (BldA) [Mass fraction] 97 % Tasha Zamora MD Work Phone: [facility] 09-20-2024 21:30-0400 Systolic blood pressure 119 mm[Hg] Tasha Zamora MD Work Phone: [facility] 09-20-2024 18:13-0400 Body height 157.5 cm Tasha Zamora MD Work Phone: [facility] 09-20-2024 18:13-0400 Body mass index (BMI) [Ratio] 22.86 kg/m2 Tasha Zamora MD Work Phone: [facility] 09-20-2024 18:13-0400 Body temperature 98.1 [degF] Tasha Zamora MD Work Phone: [facility] 09-20-2024 18:13-0400 Body weight 56.7 kg Tasha Zamora MD Work Phone: [employer] [facility] [employer] 08-08-2024 19:32-0400 Diastolic blood pressure 62 mm[Hg] [facility] [employer] 08-08-2024 19:32-0400 SaO2% (BldA) [Mass fraction] 98 % [facility] [employer] 08-08-2024 19:32-0400 Systolic blood pressure 135 mm[Hg] [facility] [employer] 08-08-2024 17:51-0400 Body height 157.5 cm [facility] [employer] 08-08-2024 17:51-0400 Body mass index (BMI) [Ratio] 22.86 kg/m2 [facility] [employer] 08-08-2024 17:51-0400 Body temperature 98.29 [degF] [facility] [employer] 08-08-2024 17:51-0400 Body weight 56.7 kg [facility] [employer] 08-08-2024 17:51-0400 Heart rate 86 /min [facility] [employer] 08-08-2024 17:51-0400 Respiratory rate 20 /min [facility] [employer] 04-07-2024 16:14-0500 Heart rate 93 /min Peter Escalera MD Work Phone: [facility] [employer] 04-07-2024 16:14-0500 SaO2% (BldA) [Mass fraction] 100 % Peter Escalera MD Work Phone: [facility] [employer] 04-07-2024 13:10-0500 Body height 157.5 cm Peter Escalera MD Work Phone: [facility] [employer] 04-07-2024 13:10-0500 Body mass index (BMI) [Ratio] 22.86 kg/m2 Peter Escalera MD Work Phone: [facility] [employer] 04-07-2024 13:10-0500 Body temperature 97.9 [degF] Peter Escalera MD Work Phone[facility] [employer] 04-07-2024 13:10-0500 Body weight 56.7 kg Peter Escalera MD Work Phone: [facility] 04-07-2024 13:10-0500 Diastolic blood pressure 88 mm[Hg] Peter Escalera MD Work Phone: [facility] 04-07-2024 13:10-0500 Respiratory rate 16 /min Peter Escalera MD Work Phone: [facility] 04-07-2024 13:10-0500 Systolic blood pressure 139 mm[Hg] Peter Escalera MD Work Phone: [facility] 01-19-2024 11:30-0500 Diastolic blood pressure 63 mm[Hg] Sabrina Dee MD, MPH Work Phone: [facility] 01-19-2024 11:30-0500 Heart rate 73 /min Sabrina Dee MD, MPH Work Phone: [facility] 01-19-2024 11:30-0500 Respiratory rate 18 /min Sabrina Dee MD, MPH Work Phone: [facility] 01-19-2024 11:30-0500 SaO2% (BldA) [Mass fraction] 99 % Sabrina Dee MD, MPH Work Phone: [facility] 01-19-2024 11:30-0500 Systolic blood pressure 120 mm[Hg] Sabrina Dee MD, MPH Work Phone: [facility] 01-19-2024 09:54-0500 Body temperature 98.01 [degF] Sabrina Dee MD, MPH Work Phone: [facility] 01-07-2024 16:13-0400 Diastolic blood pressure 41 mm[Hg] [facility] 01-07-2024 16:13-0400 Heart rate 82 /min [facility] 01-07-2024 16:13-0400 Respiratory rate 15 /min [facility] 01-07-2024 16:13-0400 Systolic blood pressure 127 mm[Hg] [facility] 01-07-2024 14:14-0400 Body height 157.5 cm [facility] 01-07-2024 14:14-0400 Body mass index (BMI) [Ratio] 21.95 kg/m2 [facility] 01-07-2024 14:14-0400 Body temperature 98.1 [degF] [facility] 01-07-2024 14:14-0400 Body weight 54.43 kg [facility] 01-07-2024 14:14-0400 SaO2% (BldA) [Mass fraction] 99 % [facility] 09-29-2023 21:39-0400 Heart rate 102 /min [facility] 09-29-2023 21:29-0400 SaO2% (BldA) [Mass fraction] 96 % [facility] 09-29-2023 20:32-0400 Diastolic blood pressure 94 mm[Hg] [facility] 09-29-2023 20:32-0400 Systolic blood pressure 124 mm[Hg] [facility] 09-29-2023 18:57-0400 Body height 157.5 cm [facility] 09-29-2023 18:57-0400 Body mass index (BMI) [Ratio] 22.86 kg/m2 [facility] 09-29-2023 18:57-0400 Body temperature 98.1 [degF] [facility] 09-29-2023 18:57-0400 Body weight 56.7 kg [facility] 09-29-2023 18:57-0400 Respiratory rate 18 /min [facility] 09-08-2023 09:00-0400 Diastolic blood pressure 54 mm[Hg] Sabrina Dee MD, MPH Work Phone: [facility] 09-08-2023 09:00-0400 Heart rate 83 /min Sabrina Dee MD, MPH Work Phone: [facility] 09-08-2023 09:00-0400 Respiratory rate 13 /min Sabrina Dee MD, MPH Work Phone: [facility] 09-08-2023 09:00-0400 SaO2% (BldA) [Mass fraction] 95 % Sabrina Dee MD, MPH Work Phone: [facility] 09-08-2023 09:00-0400 Systolic blood pressure 94 mm[Hg] Sabrina Dee MD, MPH Work Phone: [facility] 09-08-2023 08:04-0400 Body temperature 97.7 [degF] Sabrina Dee MD, MPH Work Phone: [facility] 09-08-2023 06:43-0400 Body height 157.5 cm Sabrina Dee MD, MPH Work Phone: [facility] 05-11-2023 09:01-0500 Body height 157.5 cm Sabrina Dee MD, MPH Work Phone: [facility] 05-11-2023 09:01-0500 Body mass index (BMI) [Ratio] 21 kg/m2 Sabrina Dee MD, MPH Work Phone: [facility] 05-11-2023 09:01-0500 Body weight 52.07 kg Sabrina Dee MD, MPH Work Phone: [facility] 05-11-2023 09:01-0500 Diastolic blood pressure 48 mm[Hg] Sabrina Dee MD, MPH Work Phone: [facility] 05-11-2023 09:01-0500 Heart rate 107 /min Sabrina Dee MD, MPH Work Phone: [facility] 05-11-2023 09:01-0500 SaO2% (BldA) [Mass fraction] 97 % Sabrina Dee MD, MPH Work Phone: [facility] 05-11-2023 09:01-0500 Systolic blood pressure 110 mm[Hg] Sabrina Dee MD, MPH Work Phone: [facility] 04-18-2023 17:39-0500 Diastolic blood pressure 79 mm[Hg] [facility] 04-18-2023 17:39-0500 Heart rate 114 /min [facility] 04-18-2023 17:39-0500 Respiratory rate 16 /min [facility] 04-18-2023 17:39-0500 SaO2% (BldA) [Mass fraction] 98 % [facility] 04-18-2023 17:39-0500 Systolic blood pressure 168 mm[Hg] [facility] 04-18-2023 15:29-0500 Body height 157.48 cm [facility] 04-18-2023 15:29-0500 Body temperature 99.3 [degF] [facility] 04-18-2023 15:29-0500 Body weight 51.25 kg [facility] 04-11-2023 23:50-0500 Diastolic blood pressure 82 mm[Hg] [facility] 04-11-2023 23:50-0500 Heart rate 106 /min [facility] 04-11-2023 23:50-0500 SaO2% (BldA) [Mass fraction] 97 % [facility] 04-11-2023 23:50-0500 Systolic blood pressure 151 mm[Hg] [facility] 04-11-2023 22:25-0500 Respiratory rate 18 /min [facility] 04-11-2023 21:20-0500 Body height 157.48 cm [facility] 04-11-2023 21:20-0500 Body temperature 97.2 [degF] [facility] 04-11-2023 21:20-0500 Body weight 52 kg [facility] 04-02-2023 19:20-0500 Diastolic blood pressure 74 mm[Hg] [facility] 04-02-2023 19:20-0500 Heart rate 91 /min [facility] 04-02-2023 19:20-0500 Respiratory rate 18 /min [facility] 04-02-2023 19:20-0500 SaO2% (BldA) [Mass fraction] 96 % [facility] 04-02-2023 19:20-0500 Systolic blood pressure 137 mm[Hg] [facility] 04-02-2023 13:45-0500 Body height 157.48 cm [facility] 04-02-2023 13:45-0500 Body temperature 97.6 [degF] [facility] 04-02-2023 13:45-0500 Body weight 54 kg [facility] 11-09-2022 16:30-0400 Diastolic blood pressure 81 mm[Hg] [facility] 11-09-2022 16:30-0400 Heart rate 78 /min [facility] 11-09-2022 16:30-0400 Respiratory rate 18 /min [facility] 11-09-2022 16:30-0400 SaO2% (BldA) [Mass fraction] 99 % [facility] 11-09-2022 16:30-0400 Systolic blood pressure 141 mm[Hg] [facility] 11-09-2022 13:47-0400 Body height 160.02 cm [facility] [facility] 11-09-2022 13:47-0400 Body temperature 98.2 [degF] [facility] 11-09-2022 13:47-0400 Body weight 54.2 kg [facility] 08-12-2022 13:15-0400 Diastolic blood pressure 68 mm[Hg] Sabrina Dee MD, MPH Work Phone: [facility] 08-12-2022 13:15-0400 Heart rate 67 /min Sabrina Dee MD, MPH Work Phone: [facility] 08-12-2022 13:15-0400 Respiratory rate 22 /min Sabrina Dee MD, MPH Work Phone: [facility] 08-12-2022 13:15-0400 SaO2% (BldA) [Mass fraction] 99 % Sabrina Dee MD, MPH Work Phone: 3(866)[phone] [place] [address] 08-12-2022 13:15-0400 Systolic blood pressure 142 mm[Hg] Sabrina Dee MD, MPH Work Phone: 9([phone])[phone] [place] [address] 08-12-2022 11:45-0400 Body temperature 97.81 [degF] Sabrina Dee MD, MPH Work Phone: 7([phone])421-619418 [place] [address] 08-12-2022 10:34-0400 Body height 157.5 cm Sabrina Dee MD, MPH Work Phone: 1(758)[phone] [place] [address] 06-16-2022 10:52-0400 Body mass index (BMI) [Ratio] 23.41 kg/m2 Sabrina Dee MD, MPH Work Phone: 9(696)364-285518 [place] [address] 06-16-2022 10:52-0400 Body weight 58.06 kg Sabrina Dee MD, MPH Work Phone: 9(458)235-985018 [place] [address] 06-16-2022 10:52-0400 Diastolic blood pressure 68 mm[Hg] Sabrina Dee MD, MPH Work Phone: 2([phone])[phone] [address] 06-16-2022 10:52-0400 Heart rate 83 /min Sabrina Dee MD, MPH Work Phone: 4([phone])624-790718 [place] [address] 06-16-2022 10:52-0400 SaO2% (BldA) [Mass fraction] 98 % Sabrina Dee MD, MPH Work Phone: [phone] [place] [address] 06-16-2022 10:52-0400 Systolic blood pressure 122 mm[Hg] Sabrina Dee MD, MPH Work Phone: [facility] 03-22-2022 16:51-0500 Diastolic blood pressure 61 mm[Hg] [facility] 03-22-2022 16:51-0500 Heart rate 98 /min [facility] 03-22-2022 16:51-0500 Respiratory rate 20 /min [facility] 03-22-2022 16:51-0500 SaO2% (BldA) [Mass fraction] 98 % [facility] 03-22-2022 16:51-0500 Systolic blood pressure 149 mm[Hg] [facility] 03-22-2022 14:59-0500 Body height 157.48 cm [facility] 03-22-2022 14:59-0500 Body temperature 97.9 [degF] [facility] 03-22-2022 14:59-0500 Body weight 56 kg [facility] 12-16-2021 11:53-0400 Body height 157.5 cm Sabrina Dee MD, MPH Work Phone: [facility] 12-16-2021 11:53-0400 Body mass index (BMI) [Ratio] 22.5 kg/m2 Sabirna Dee MD, MPH Work Phone: [facility] 12-16-2021 11:53-0400 Body weight 55.79 kg Sabrina Dee MD, MPH Work Phone: [facility] 12-16-2021 11:53-0400 Diastolic blood pressure 72 mm[Hg] Sabrina Dee MD, MPH Work Phone: [facility] 12-16-2021 11:53-0400 Heart rate 80 /min Sabrina Dee MD, MPH Work Phone: [facility] 12-16-2021 11:53-0400 SaO2% (BldA) [Mass fraction] 98 % Sabrina Dee MD, MPH Work Phone: [facility] 12-16-2021 11:53-0400 Systolic blood pressure 118 mm[Hg] Sabrina Dee MD, MPH Work Phone: [facility] 10-09-2021 20:00-0400 Body temperature 98.3 [degF] [facility] 10-09-2021 20:00-0400 Diastolic blood pressure 68 mm[Hg] [facility] 10-09-2021 20:00-0400 Heart rate 86 /min [facility] 10-09-2021 20:00-0400 Respiratory rate 20 /min [facility] 10-09-2021 20:00-0400 SaO2% (BldA) [Mass fraction] 100 % [facility] 10-09-2021 20:00-0400 Systolic blood pressure 110 mm[Hg] [facility] 10-09-2021 14:19-0400 Body height 157.48 cm [facility] 10-09-2021 14:19-0400 Body weight 56.69 kg [facility] 10-04-2021 19:00-0400 Diastolic blood pressure 66 mm[Hg] [facility] 10-04-2021 19:00-0400 Heart rate 72 /min [facility] 10-04-2021 19:00-0400 Respiratory rate 16 /min [facility] 10-04-2021 19:00-0400 SaO2% (BldA) [Mass fraction] 96 % [facility] 10-04-2021 19:00-0400 Systolic blood pressure 110 mm[Hg] [facility] 10-04-2021 15:16-0400 Body temperature 97.9 [degF] [facility] 10-04-2021 15:15-0400 Body height 157.48 cm [facility] 10-04-2021 15:15-0400 Body weight 54.5 kg [facility] 09-25-2021 19:58-0400 Heart rate 82 /min [facility] 09-25-2021 18:04-0400 Body temperature 98.1 [degF] [facility] 09-25-2021 18:00-0400 Body height 157.48 cm [facility] 09-25-2021 18:00-0400 Body weight 55.5 kg [facility] 09-25-2021 18:00-0400 Diastolic blood pressure 107 mm[Hg] [facility] 09-25-2021 18:00-0400 Respiratory rate 18 /min [facility] 09-25-2021 18:00-0400 SaO2% (BldA) [Mass fraction] 98 % [facility] 09-25-2021 18:00-0400 Systolic blood pressure 141 mm[Hg] [facility] 08-11-2021 18:12-0400 Heart rate 86 /min [facility] 08-11-2021 18:00-0400 Diastolic blood pressure 69 mm[Hg] [facility] 08-11-2021 18:00-0400 Respiratory rate 20 /min [facility] 08-11-2021 18:00-0400 SaO2% (BldA) [Mass fraction] 98 % [facility] 08-11-2021 18:00-0400 Systolic blood pressure 114 mm[Hg] [facility] 08-11-2021 16:06-0400 Body height 170.18 cm [facility] 08-11-2021 16:06-0400 Body mass index (BMI) [Ratio] 19.6 kg/m2 [facility] 08-11-2021 16:06-0400 Body temperature 97.9 [degF] [facility] 08-11-2021 16:06-0400 Body weight 57 kg [facility] 03-19-2021 14:30-0500 Body height 157.48 cm Marya Almonte Other [employer] Other 03-19-2021 14:30-0500 Body mass index (BMI) [Ratio] 24.69 kg/m2 Marya Ginty Other [employer] Other 03-19-2021 14:30-0500 Body temperature 96 [degF] Marya Ginty Other [employer] Other 03-19-2021 14:30-0500 Body weight 61.24 kg Marya Ginty Other [employer] Other 03-19-2021 14:30-0500 Respiratory rate 63 /min Marya Ginty Other [employer] Other 03-19-2021 14:30-0500 SaO2% (BldA) [Mass fraction] 97 % Marya Ginty Other [employer] Other 03-26-2020 21:05-0500 Pulse Oximetry 100 % [facility] [place] 03-26-2020 21:01-0500 BP Diastolic 68 mm[Hg] [facility] [place] 03-26-2020 21:01-0500 BP Systolic 152 mm[Hg] [facility] [place] 03-26-2020 17:32-0500 BMI (Body Mass Index) 22.86 kg/m2 [facility] 03-26-2020 17:32-0500 Body weight 56.7 kg [facility] [place] 03-26-2020 17:32-0500 Height 157.5 cm [facility] [place] 03-26-2020 17:32-0500 Pulse (Heart Rate) 90 /min [facility] [place] 03-26-2020 17:32-0500 Respiratory Rate 18 /min [facility] [place] 03-26-2020 12:39-0500 Body Temperature 98.71 [degF] [facility] [place] 08-25-2019 08:30-0400 Body Temperature 98.01 [degF] Rajeev Cantor [facility], [place] 08-25-2019 08:30-0400 BP Diastolic 75 mm[Hg] Rajeev Sakshi [place], [place] 08-25-2019 08:30-0400 BP Systolic 117 mm[Hg] Rajeev Cantor [place] 08-25-2019 08:30-0400 Pulse (Heart Rate) 84 /min Rajeev [place] 08-25-2019 08:30-0400 Pulse Oximetry 97 % Rajeev [facility] , [place] 08-25-2019 08:30-0400 Respiratory Rate 16 /min Rajeev Sakshi [place], [place] 08-25-2019 05:30-0400 BMI (Body Mass Index) 25.88 kg/m2 Rajeev Sakshi [place], [place] 08-25-2019 05:30-0400 Body weight 64.18 kg Rajeev [place] 08-22-2019 16:00-0400 Height 157.5 cm Rajeev Sakshi [place] 03-04-2018 13:09-0500 BP Diastolic 69 [...] Hospital 08-24-2017 20:58-0400 BP Diastolic 64 mm[Hg] Sarah Walton [facility] 08-24-2017 20:58-0400 BP Systolic 126 mm[Hg] Sarah Walton [facility] 08-24-2017 20:58-0400 Pulse (Heart Rate) 67 /min Sarah Walton [facility] 08-24-2017 20:58-0400 Pulse Oximetry 98 % Sarah Walton [facility] 08-24-2017 20:58-0400 Respiratory Rate 18 /min Sarah Walton [facility] 08-24-2017 13:41-0400 BMI (Body Mass Index) 21.58 kg/m2 Sarah Walton [facility] 08-24-2017 13:41-0400 Body Temperature 98.29 [degF] Sarah Walton [facility] 08-24-2017 13:41-0400 Height 157.5 cm Sarah [facility] 08-24-2017 13:41-0400 Weight 53.[address] [facility] 06-09-2017 09:32-0400 BP Diastolic 73 mm[Hg] [facility] 06-09-2017 09:32-0400 BP Systolic 106 mm[Hg] [facility] 06-09-2017 09:32-0400 Pulse (Heart Rate) 86 /min [facility] 06-09-2017 09:32-0400 Pulse Oximetry 99 % [facility] 06-09-2017 09:32-0400 Respiratory Rate 16 /min [facility] 06-09-2017 07:20-0400 BMI (Body Mass Index) 21.87 kg/m2 [facility] 06-09-2017 07:20-0400 Body Temperature 98.4 [degF] [facility] 06-09-2017 07:20-0400 Height 157.5 cm [facility] 06-09-2017 07:20-0400 Weight 54.23 kg [facility] 05-15-2017 08:11-0500 Body Temperature 98.01 [degF] David Gibson [facility] 05-15-2017 08:11-0500 BP Diastolic 69 mm[Hg] David Gibson [facility] 05-15-2017 08:11-0500 BP Systolic 116 mm[Hg] David Gibson [facility] 05-15-2017 08:11-0500 Pulse (Heart Rate) 76 /min David Gibson [facility] 05-15-2017 08:11-0500 Pulse Oximetry 95 % David Gibson [facility] 05-15-2017 08:11-0500 Respiratory Rate 15 /min David Gibson [facility] 05-14-2017 12:58-0500 BMI (Body Mass Index) 21.95 kg/m2 David Gibson [facility] 05-14-2017 12:58-0500 Height 157.[address] [facility] 05-14-2017 12:58-0500 Weight 54.[address] [facility] Encounters Encounter Date Encounter Type Care Provider Facility Start: 12-13-2024 End: 12-13-2024 ambulatory LINDSEY WILLARD Facility:[facility] Start: 12-09-2024 End: 12-11-2024 ambulatory CYNTHIA GALINDO Facility:[facility] Start: 12-08-2024 End: 12-08-2024 Emergency department patient visit [facility] Start: 11-25-2024 End: 11-29-2024 Evaluation and management of inpatient Geno Martin Facility:[facility] Start: 11-24-2024 Emergency department patient visit Loki Ernandez Facility:[facility] Start: 11-17-2024 ambulatory CYNTHIA GALINDO Faci lity:[facility] Start: 11-17-2024 End: 11-17-2024 Subsequent hospital visit by physician Josse Romo MD Work Phone: Gastroenterology Comment on above: Chronic pancreatitis , unspecified pancreatitis type (HCC) [K86.1] Start: 11-06-2024 End: 11-09-2024 Evaluation and management of inpatient Raji Gilliam MD Work Phone: [facility] Comment on above: Acute pancreatitis, unspecified complication status, unspecified pancreatitis type (Primary Dx) Start: 11-02-2024 End: 11-03-2024 Office outpatient visit 15 minutes Lindsey Willard APRN.CNP Work Phone: Gastroenterology Comment on above: Chronic pancreatitis , unspecified pancreatitis type (HCC) (Primary Dx); Exocrine pancreatic insufficiency (HCC); Epigastric pain; Loose stools; Heartburn; Tobacco use Start: 11-02-2024 End: 11-03-2024 ambulatory CYNTHIA GALINDO Facility:[facility] Start: 10-28-2024 End: 10-28-2024 Emergency department patient visit -Emergency Room Work Phone: Start: 10-26-2024 End: 10-26-2024 Emergency department patient visit [facility] Start: 10-24-2024 End: 10-24-2024 Emergency department patient visit Darrel Carissa Facility:[facility] Start: 10-19-2024 End: 10-19-2024 Emergency department patient visit -Emergency Room Work Phone: Start: 10-11-2024 End: 10-11-2024 Emergency department patient visit [facility] Start: 10-09-2024 End: 10-09-2024 Emergency department patient visit Ish Stokes Facility:[facility] Start: 10-03-2024 End: 10-03-2024 Emergency department patient visit Darrel Ferrer Facility:[facility] Start: 09-27-2024 End: 09-27-2024 Emergency department patient visit Tasha Zamora MD Work Phone: [facility] Comment on above: Abdominal pain, epig astric (Primary Dx); Nausea and vomiting, unspecified vomiting type Start: 09-20-2024 End: 09-20-2024 Emergency department patient visit Tasha Zamora MD Work Phone: [facility] Comment on above: Other chronic pancre atitis (HCC) (Primary Dx) Start: 09-18-2024 End: 09-19-2024 Emergency department patient visit [facility] Start: 09-05-2024 End: 09-05-2024 Emergency department patient visit [facility] Start: 08-10-2024 End: 08-10-2024 Emergency department patient visit [facility] Start: 08-08-2024 End: 08-08-2024 Emergency department patient visit [facility] Comment on above: Abdominal pain, epig astric (Primary Dx) Start: 07-20-2024 End: 07-21-2024 Emergency department patient visit [facility] Start: 06-27-2024 End: 06-27-2024 Emergency department patient visit [facility] Start: 06-15-2024 End: 06-15-2024 Emergency department patient visit [facility] Start: 05-31-2024 End: 05-31-2024 Emergency department patient visit [facility] Start: 04-07-2024 End: 04-07-2024 Emergency department patient visit Peter Escalera MD Work Phone: [facility] Emergency [facility] Comment on above: Acute pancreatitis w ithout infection or necrosis, unspecified pancreatitis type (Primary Dx); Acute recurrent pancreatitis Start: 03-18-2024 End: 03-18-2024 Emergency department patient visit [facility] Start: 01-19-2024 ambulatory SABRINA Ferreira [facility] Start: 01-19-2024 End: 01-19-2024 Subsequent hospital visit by physician Sabrina Dee MD, MPH Work Phone: [facility] Start: 01-14-2024 End: 01-14-2024 Emergency department patient visit [facility] Start: 01-07-2024 End: 01-07-2024 Emergency department patient visit [facility] Comment on above: Acute on chronic see creatitis (HCC) (Primary Dx); Abdominal pain, epigastric Start: 12-29-2023 End: 12-29-2023 Emergency department patient visit [facility] Start: 09-29-2023 End: 09-29-2023 Emergency department patient visit [facility] ED Comment on above: Hypokalemia (Primary Dx); Acute recurrent pancreatitis Start: 09-08-2023 End: 09-08-2023 Subsequent hospital visit by physician Sabrina Dee MD, MPH Work Phone: [facility] Start: 09-08-2023 ambulatory SABRINA Ferreira cili:[facility] Start: 05-22-2023 Telephone encounter Julia Portillo [facility] Start: 05-11-2023 Chart abstracting Scanning Pro vider External [facility] Start: 05-11-2023 End: 05-11-2023 Office outpatient visit 40 minutes Sabrina Dee MD, MPH Work Phone: [facility] [place] Comment on above: Alcohol-induced set off blocker amish pancreatitis (Primary Dx); Encounter for screening for malignant neoplasm of colon; Other osteoporosis without current pathological fracture; Epigastric pain; Smoking; Gastroesophageal reflux disease without esophagitis Start: 05-11-2023 ambulatory SABRINA DEE Fa cility:[facility] Start: 04-18-2023 End: 04-18-2023 Emergency department patient visit [facility] Work Phone: Start: 04-16-2023 Telephone encounter Monalisa [facility] Start: 04-11-2023 End: 04-12-2023 Emergency department patient visit [facility] Work Phone: Start: 04-02-2023 End: 04-02-2023 Emergency department patient visit [facility] Work Phone: Start: 11-09-2022 End: 11-09-2022 Emergency department patient visit [facility] Work Phone: Start: 08-12-2022 End: 08-12-2022 Subsequent hospital visit by physician Sabrina Dee MD, MPH Work Phone: [facility] Start: 06-16-2022 End: 06-16-2022 Office outpatient visit 40 minutes Sabrina Dee MD, MPH Work Phone: [facility] [place] Comment on above: Osteoporosis without current pathological fracture, unspecified osteoporosis type (Primary Dx); Alcohol-induced chronic pancreatitis Start: 06-13-2022 End: 06-13-2022 ambulatory ARIC JANUSZ . Facility: Start: 03-29-2022 End: 03-29-2022 ambulatory ELENITA ROLLINS . Facility:[facility] Start: 03-22-2022 End: 03-22-2022 Emergency department patient visit [facility] Work Phone: Start: 03-19-2022 End: 03-19-2022 ambulatory MONIK BURNETTP . Facility:[facility] Start: 01-28-2022 End: 01-28-2022 Subsequent hospital visit by physician Sabrina Dee MD, MPH Work Phone: [facility] Start: 01-27-2022 End: 01-27-2022 Subsequent hospital visit by physician Sabrina Dee MD, MPH Work Phone: [facility] [place] Comment on above: Arrived Start: 01-15-2022 End: 01-15-[address] CRUZITO KITCHEN . Facility:[facility] Start: 12-16-2021 End: 12-16-2021 Office outpatient visit 25 minutes Sabrina Dee MD, MPH Work Phone: [facility] [place] Comment on above: Recurrent acute panc reatitis (Primary Dx); History of smoking 25-50 pack years; Alcohol-induced chronic pancreatitis; Epigastric pain; Encounter for screening colonoscopy Start: 12-13-2021 End: 12-14-2021 ambulatory NICK COY Facility:[facility] Start: 12-05-2021 End: 12-05-[address] RAJEEV KELLOGG Facility:[facility] Start: 10-11-2021 End: 10-12-[address] RAJEEV KELLOGG Facility:[facility] Start: 10-04-2021 End: 10-04-2021 Emergency department patient visit [facility] Start: 09-30-2021 End: 09-30-2021 ambulatory NAT MAXWELL . Facility:[facility] Start: 09-25-2021 End: 09-25-2021 Emergency department patient visit [facility] Start: 09-17-2021 End: 09-17-[address] RAJEEV KELLOGG Facility:[facility] Start: 08-26-2021 End: 08-26-2021 ambulatory NICK COY Facility:[facility] Start: 08-22-2021 End: 08-22-[address] TRI HANSON Facility:[facility] Start: 08-13-2021 End: 08-13-2021 ambulatory AGUSTIN MADRIGAL Facility:[facility] Start: 08-11-2021 End: 08-11-2021 Emergency department patient visit [facility] Start: 07-31-2021 End: 07-31-2021 ambulatory YANNI FRASER Facility:[facility] Start: 07-19-2021 End: 07-19-2021 ambulatory LYNNE PERDOMO Facility:[facility] Start: 03-19-2021 End: 03-19-2021 ambulatory Marya Gillana Other [employer] Other Start: 03-19-2021 Office outpatient visit 15 minutes Marya Almonte [facility] Start: 05-22-2020 End: 05-22-2020 Orders Only Izabela Grant Work Phone: [facility] Start: 03-26-2020 End: 03-26-2020 Emergency department patient visit [facility] ED Comment on above: Acute biliary pancre atitis, unspecified complication status (Primary Dx) Start: 08-22-2019 End: 08-25-2019 Evaluation and management of inpatient Rajeev Cantor Work Phone: [facility] Comment on above: Acute pancreatitis, unspecified complication status, unspecified pancreatitis type (Primary Dx); Pain of upper abdomen Start: 03-08-2018 End: 03-09-2018 Evaluation and management of inpatient [facility] Start: 03-04-2018 End: 03-04-2018 Patient encounter procedure [facility] Start: 03-04-2018 End: 03-04-2018 Emergency department patient visit Keerthi Nguyen Work Phone: [facility] Emergency Department Comment on above: Acute on chronic see creatitis (HCC) (Primary Dx) Start: 08-24-2017 End: 08-24-2017 Emergency department patient visit [facility] Start: 08-24-2017 End: 08-24-2017 Emergency department patient visit Sarah Walton Work Phone: [facility] Emergency Department Start: 06-09-2017 End: 06-09-2017 Emergency department patient visit ALEXANDER [facility] Start: 06-09-2017 End: 06-09-2017 Emergency department patient visit Mario Mendes Work Phone: [facility] Emergency Department Start: 05-14-2017 End: 05-15-2017 Patient encounter procedure ALEXANDER NICHOLS [facility] Start: 05-14-2017 End: 05-15-2017 Emergency department patient visit David Gibson Work Phone: [facility] Medical Observation Procedures Date Procedure Procedure Detail Performing Clinician Start: 11-17-2024 Esophagoscp rig transoral hypopharynx crv yun Willard ELECTRONIC TRAIN CONTROL TECHNICIAN.[employer] PRESS OPERATOR Work Phone: Start: 11-09-2024 Assay of lipase Raji Gilliam MD Work Phone: Start: 11-08-2024 Mri abdomen w/o & w/contrast material Carley Anne ELECTRONIC TRAIN CONTROL TECHNICIAN - [employer] PRESS OPERATOR Work Phone: Start: 11-08-2024 Assay of lipase [...] Phone: Start: 09-20-2024 Comprehensive metabolic panel Tasha Zamroa MD Work Phone: Start: 09-20-2024 Urnls dip [...] Phone: Start: 09-29-2023 Urinalysis microscopic only Kerrie carlson PA-C Work Phone: Start: 09-29-2023 Urnls dip stick/tablet rgnt auto w/o microscopy Kerrie Kincaid PA-C Work Phone: Start: 09-29-2023 Comprehensive metabolic panel Kerrie Kincaid PA-C Work Phone: Start: 09-08-2023 UPPER GALE Dee MD, MPH [...] Work Phone: Start: 03-26-2020 Assay of amylase Ersato Dickinson Work Phone: Start: 03-26-2020 Assay of [...] panel - Serum or Plasma Lindsey Willard APRN.[employer]O PRESS OPERATOR Work Phone: Start: 03-04-2018 End: 03-04-2018 Urinalysis Raji obrien Work Phone: Start: 03-04-2018 End: 03-04-2018 Basic metabolic 1998 panel - Serum or Plasma Raji Connolly Work Phone: Start: 03-04-2018 End: 03-04-2018 Complete blood count with white cell differential, automated Raji Connolly Work Phone: Start: 03-04-2018 End: 03-04-2018 Complete blood count with white cell differential, manual Raji Connolly Work Phone: Start: 03-04-2018 End: 03-04-2018 RUFF TOP Keerthi Nguyen Work Phone: Start: 03-04-2018 End: 03-04-2018 Hepatic function 2000 panel - Serum or Plasma Raji Connolly Work Phone: Start: 03-04-2018 End: 03-04-2018 LIGHT BLUE TOP Keerthi Nguyen Work Phone: Start: 03-04-2018 End: 03-04-2018 LIGHT GREEN TOP Keerthi Nguyen Work Phone: Start: 03-04-2018 End: 03-04-2018 Lipase [Enzymatic activity/volume] in Serum or Plasma Raji Connolly Work Phone: Start: 03-04-2018 End: 03-04-2018 PINK TOP Keerthi Nguyen Work Phone: Start: 03-04-2018 End: 03-04-2018 RAINBOW DRAW Keerthi Nguyen Work Phone: Start: 09-25-2017 Lipid 1996 panel - Serum or Plasma Sabrina Dee MD, MPH Work Phone: Start: 01-02-2012 Mammography Izabela Cooperana Start: 12-11-2011 Microscopic observation [Identifier] in Cervix by Cyto stain Keerthivane Nguyen Start: 10-10-2011 Colonoscopy Lindsey Willard APRN.FLEXO PRESS OPERATOR Work Phone: Start: 08-22-2011 History of cholecystectomy S/P cholecystectomy Lindsey khan APRN.[employer]O PRESS OPERATOR Work Phone: Plan of Treatment Date Care Activity Detail Author Start: 11-10-2027 Diabetes Screening Diabetes Screening [facility] Start: 10-12-2027 Diabetes Screening Diabetes Screening [facility] Start: 12-05-2024 End: 12-05-2024 Follow-up encounter 12/05/2024 1:30 PM EDT [facility] [address] [address] Lindsey Willard APRN.FLEXO PRESS OPERATOR [address] [place] [address] follow up Gastroenterology Comment on above: follow up Start: 11-17-2024 End: 11-17-2024 Patient encounter procedure 11/17/2024 3:30 PM EDT Appointment Gastroenterology [address] [address] Josse Romo MD [address] [place] [address] Chronic pancreatitis, unspecified pancreatitis type (HCC) [K86.1] Gastroenterology Comment on above: Chronic pancreatitis, unspecified pancre atitis type (HCC) [K86.1] Start: 11-07-2024 COVID-19 Vaccine ( season) COVID-19 Vaccine () [facility]. Start: 11-07-2024 Influenza vaccination Influenza Vaccine (#1) [facility] Start: 10-07-2024 Influenza vaccination UB. Start: 04-11-2024 Adult [facility]ening [facility] Start: 04-11-2024 Tobacco Screening [facility] Start: 02-22-2024 End: 02-22-2024 Patient encounter procedure 02/22/2024 9:30 AM EST Office Visit [facility] [address] [address] Sabrina Dee MD, MPH [address] [place] [id number] [facility]astro[facility] [place] Start: 11-08-2023 COVID-19 Vaccine () COVID-19 Vaccine () [facility]B. Start: 11-08-2023 COVID-19 Vaccine ( season) COVID-19 Vaccine ( season) [facility] Start: 11-08-2023 COVID-19 VACCINE ( season) COVID-19 VACCINE () [facility] Start: 11-08-2023 Influenza vaccination INFLUENZA VACCINE (#1) [facility] Start: 10-08-2023 Influenza vaccination Flu vaccine (#1) [facility] Start: 05-25-2023 End: 05-25-2023 Patient encounter procedure 05/25/2023 1:00 PM EDT Office Visit [facility] [address] [facility] [address] [place] [address] Orlando Al MD [address] [place] [address] [facility] Start: 05-19-2023 End: 05-10-2024 UPPER EUS UPPER EUS GI/Bronch Routine Alcohol-induced chronic pancreatitis Expected: 05/19/2023, Expires: 05/10/2024 [facility] Comment on above: Expected: 05/19/2023, Expires: Start: 05-11-2023 End: 05-10-2024 VITAMIN D (25-HYDROXY,TOTAL) VITAMIN D (25-HYDROXY,TOTAL) Lab Routine Other osteoporosis without current pathological fracture Expected: 05/11/2023, Expires: 05/10/2024 [facility] Comment on above: Expected: 05/11/2023, Expires: Start: 04-11-2023 Computed tomography of abdomen and pelvis with contrast CT abdomen pelvis w con [facility] Start: 04-11-2023 CT Abdomen and Pelvis W contrast IV [facility] Start: 03-16-2023 End: 03-16-2023 Patient encounter procedure 03/16/2023 Office Visit Gastroenterology Sabrina Dee MD, MPH [address] [place] [phone] [facility] [place] Start: 03-08-2023 Lipid panel Lipid Screening [facility] Start: 11-07-2022 COVID-19 VACCINE ( season) COVID-19 VACCINE () [facility] Start: 11-07-2022 Influenza vaccination [facility] Start: 09-25-2022 Lipid panel LIPID SCREENING [facility] Start: 07-29-2022 End: 06-17-2023 UPPER EUS UPPER EUS GI/Bronch Routine Alcohol-induced chronic pancreatitis Expected: 07/29/2022, Expires: 06/17/2023 [facility] Comment on above: Expected: 07/29/2022, Expires: 4 Start: 07-28-2022 End: 01-28-2023 Screening colonoscopy SCREENING COLONOSCOPY GI/Bronch Routine Encounter for screening colonoscopy Expected: 07/28/2022, Expires: 01/28/2023 [facility] Comment on above: Expected: 07/28/2022, Expires: 3 Start: 07-28-2022 End: 07-28-2022 Patient encounter procedure 07/28/2022 Appointment Endoscopy Julia Tyler MD [address] [address] [facility] Start: 06-16-2022 End: 12-16-2022 Screening colonoscopy SCREENING COLONOSCOPY GI/Bronch Routine Encounter for screening colonoscopy Expected: 06/16/2022, Expires: 12/16/2022 [facility] Comment on above: Expected: 06/16/2022, Expires: 3 Start: 06-16-2022 End: 06-16-2022 Patient encounter procedure 06/16/2022 Office Visit Gastroenterology Sabrina Dee MD, MPH [address] [place] [address] [facility]astro[facility] [place] Start: 03-22-2022 Bacteria identified in Urine by Culture [facility] Start: 01-28-2022 End: 01-28-2022 Patient encounter procedure 01/28/2022 Appointment Endoscopy Sabrina Dee MD, MPH [address] [place] [address] [facility] Start: 01-28-2022 Subsequent hospital visit by physician 01/28/2022 Hospital Encounter Endoscopy Sabrina Dee MD, MPH [address] [place] [address] Arrived [facility] Comment on above: Arrived Start: 01-14-2022 End: 12-16-2022 UPPER EUS UPPER EUS GI/Bronch Routine Recurrent acute pancreatitis Expected: 01/14/2022, Expires: 12/16/2022 [facility] Comment on above: Expected: 01/14/2022, Expires: 3 Start: 12-16-2021 End: 12-16-2022 Bone density scan BONE DENSITY AXIAL (HIP, PELVIS, SPINE) Imaging Routine Recurrent acute pancreatitis History of smoking 25-50 pack years Expected: 12/16/2021, Expires: 12/16/2022 [facility] Comment on above: Expected: 12/16/2021, Expires: 3 Start: 11-07-2021 Influenza vaccination INFLUENZA VACCINE (#1) [facility] Start: 10-09-2021 CT of abdomen and pelvis without contrast CT abdomen pelvis wo con [facility] Start: 10-09-2021 End: 10-09-2021 Emergency department patient visit Departed Emergency [facility] Start: 11-13-2020 COVID-19 VACCINE (3 - Booster for Pfizer series) COVID-19 VACCINE (3 - Booster for Pfizer series) [facility] Start: 11-08-2019 Influenza [place] Start: 11-08-2019 Influenza vaccination given Sequential Influenza Vaccine (#1) [facility] Start: 06-21-2019 Administration of herpes zoster vaccine Zoster Vaccines (1 of 2) [facility] Start: 06-21-2019 Administration of varicella zoster vaccine Zoster (Shingles) Vaccine (1 of 2) [facility] Start: 06-21-2019 Pneumococcal 50+ years Vaccine (1 of 1 - PCV) Pneumococcal 50+ years Vaccine (1 of 1 - PCV) [facility] Start: 06-21-2019 Screening for malignant neoplasm of breast Breast cancer screen [place] Start: 06-21-2019 Screening for malignant neoplasm of colon [place] Start: 06-21-2019 Screening for malignant neoplasm of lung LUNG CANCER SCREENING [facility] Start: 06-21-2019 Shingles Vaccine (1 of 2) Shingles Vaccine (1 of 2) [facility] Start: 06-21-2019 Shingrix Vaccine (1 of 2) Shingrix Vaccine (1 of 2) [facility] Start: 06-21-2019 Zoster vaccine hzv live for subcutaneous use ZOSTER (SHINGLES) VACCINE (1 of 2) [facility] Start: 11-07-[address] [facility] Start: 11-07-2016 Influenza vaccination SEQUENTIAL INFLUENZA VACCINE (#1) [facility] Start: 12-10-2014 Screening for malignant neoplasm of cervix PAP SMEAR [facility] Start: 2014 Screening for malignant neoplasm of colon [facility] Start: 01-01-2014 Screening for malignant neoplasm of breast Breast cancer screen [facility] Start: 01-01-2013 Screening for malignant neoplasm of breast [facility] Start: 01-01-[address] [facility] Start: 2009 Lipid panel [facility] Start: 1990 Screening for malignant neoplasm of cervix [facility] Start: 1988 DTaP,Tdap and Td Vaccines (1 - Tdap) DTaP,Tdap and Td Vaccines (1 - Tdap) [facility] Start: 1988 DTaP/Tdap/Td vaccine (1 - Tdap) DTaP/Tdap/Td vaccine (1 - Tdap) [facility] Start: 1988 Hepatitis B vaccination HEP B VACCINE (1 of 3 - 19+ 3-dose series) [facility] Start: 1988 Hepatitis B vaccine (1 of 3 - 19+ 3-dose series) Hepatitis B vaccine (1 of 3 - 19+ 3-dose series) [facility] Start: 1988 Pneumococcal 50+ years Vaccine (1 of 2 - PCV) Pneumococcal 50+ years Vaccine (1 of 2 - PCV) [facility] Start: 1988 Pneumococcal Vaccine: 50+ (1 of 2 - PCV) Pneumococcal Vaccine: 50+ (1 of 2 - PCV) [facility] Start: 1988 Third diphtheria, tetanus and acellular pertussis (DTaP) vaccination TDAP (ADULT) [facility] Start: 1988 Urine microalbumin profile DTaP,Tdap,Td Vaccine (1 - Tdap) [facility] Start: 06-21-1987 Anxiety Screening Anxiety Screening [facility] Start: 06-21-1987 Depression Screening Depression Screening [facility] Start: 06-21-1987 Hepatitis C antibody, confirmatory test Hepatitis C Screening [facility] Start: 06-21-1987 Hepatitis C screening [facility] Start: 06-21-1987 HIV screening HIV Screening [facility] Start: 06-21-1987 Tetanus vaccination TETANUS [facility] Start: 1985 COVID-19 Vaccine (1 of 2) COVID-19 Vaccine (1 of 2) [facility] Start: 1984 HIV screening [facility] Start: 1981 Depression Screen Depression Screen [facility] Start: 1981 Depression Screening [facility] Start: 06-21-1975 Pneumococcal 0-64 years Vaccine (1 of 1 - PPSV23) Pneumococcal 0-64 years Vaccine (1 of 1 - PPSV23) [place] Start: 06-21-1975 Pneumococcal 0-64 years Vaccine (1 of 2 - PCV) Pneumococcal 0-64 years Vaccine (1 of 2 - PCV) [facility] Start: 06-21-1975 PNEUMOCOCCAL VACCINE SERIES (1 - PCV) PNEUMOCOCCAL VACCINE SERIES (1 - PCV) [facility] Start: 06-21-1975 PNEUMOCOCCAL VACCINE SERIES (1 of 2 - PCV) PNEUMOCOCCAL VACCINE SERIES (1 of 2 - PCV) [facility] Start: 1972 History and physical examination, annual for health maintenance Wellness Visit [facility] Start: 1969 COVID-19 Vaccine (#1) COVID-19 Vaccine (#1) [email or web address] [employer] Start: 1969 Hepatitis B vaccination HEP B VACCINE (1 of 3 - 3-dose series) [facility] Start: 1969 Hepatitis B vaccine (1 of 3 - 3-dose series) Hepatitis B vaccine (1 of 3 - 3-dose series) [facility] Start: 1969 Hepatitis C screening [facility] Start: 1969 Tetanus vaccination [facility] Start: 1969 Tobacco Counseling Tobacco Counseling [facility] CBC auto differential CBC auto d ifferential Lab Routine Daily until discontinued starting 08/23/2019, 3 completed [place] Comment on above: Daily until discontinued starting 2019, 3 completed End: 11-11-2024 CBC W Auto Differential panel - Blood CBC auto differential Lab Routine Daily for 5 Days starting 11/07/2024 until 11/11/2024, 3 completed [facility]. Work Phone: Comment on above: Daily for 5 Days starting 11/07/2024 unt il 11/11/2024, 3 completed End: 11-11-2024 Comprehensive Metabolic Panel w/ Reflex to MG Comprehensive Metabolic Panel w/ Reflex to MG Lab Routine Daily for 5 Days starting 11/07/2024 until 11/11/2024, 3 completed [facility] [employer] Comment on above: Daily for 5 Days starting 11/07/2024 unt il 11/11/2024, [address] ABDOMEN PELVIS W IV CONTRAST Additional Contrast? None CT ABDOMEN PELVIS W IV CONTRAST Additional Contrast? None Imaging STAT 03/26/2020 3:01 PM EST [place] [place] End: 11-02-2025 EGD - THERAPEUTIC, EUS, OR TUBE INTERVENTIONS EGD - THERAPEUTIC, EUS, OR TUBE INTERVENTIONS Endoscopy Routine Chronic pancreatitis, unspecified pancreatitis type (HCC) Epigastric pain Loose stools Heartburn Exocrine pancreatic insufficiency (HCC) 1 Occurrences starting 11/02/2024 until 11/02/2025 [facility] Work Phone: Comment on above: 1 Occurrences starting 11/02/2024 until 11/02/2025 EKG 12 Lead EKG 12 Lead ECG Routine 01/07/2024 2:42 PM EDT [facility]. Work Phone: IgG Subclasses IgG Subclasses A dd-On 05/14/2017 2:06 PM [facility] Initiate Oxygen Therapy Protocol Initiate Oxygen Therapy Protocol Respiratory Care Routine Daily until discontinued starting 08/22/2019 [facility] Comment on above: Daily until discontinued starting 2019 Lipase Lipase Lab Routi ne Daily until discontinued starting 08/23/2019, 3 completed [employer] Comment on above: Daily until discontinued starting 2019, 3 completed End: 11-11-2024 Lipase [Enzymatic activity/volume] in Serum or Plasma Lipase Lab Routine Daily for 5 Days starting 11/07/2024 until 11/11/2024, 3 completed [facility]. Comment on above: Daily for 5 Days starting 11/07/2024 unt il 11/11/2024, 3 completed Patient Education [facility] Work Phone: Patient referral [facility] Work Phone: End: 08-22-2019 Pulse Oximetry Spot Check Pulse Oximetry Spot Check Respiratory Care Routine One Time for 1 Occurrences starting 08/22/2019 until 08/22/2019 [facility] Comment on above: One Time for 1 Occurrences starting 08/07 until 08/22/2019 Screening colonoscopy SCREENING COLONOSCOPY GI/Bronch Routine Encounter for screening colonoscopy 01/28/2022 9:43 AM EST [facility] Screening colonoscopy SCREENING COLONOSCOPY GI/Bronch Routine Encounter for screening for malignant neoplasm of colon Ordered: 05/11/2023 [facility] Comment on above: Ordered: 05/11/2023 End: 04-07-2024 SPECIMEN REJECTION [employer] [facility] Comment on above: Once for 1 Occurrences starting 04/07/19 25 until 04/07/2024 End: 09-27-2024 Urinalysis with Microscopic Urinalysis with Microscopic Lab STAT One Time for 1 Occurrences starting 09/27/2024 until 09/27/2024 [facility] Comment on above: One Time for 1 Occurrences starting 09/07 until 09/27/2024 Immunizations Immunization Date Immunization Notes Care Provider Jhon jones 12-23-2015 influenza, injectabl e, quadrivalent, contains preservative Sabrina Dee MD, MPH Work Phone: [facility] 12-23-2015 influenza virus vaccine, unspecified formulation Sabrina Dee MD, MPH Work Phone: [facility] 12-15-2014 influenza virus vaccine, unspecified formulation Sabrina Dee MD, MPH Work Phone: [facility] Payers Date Payer Category Payer Self-pay [id number] 2023 Private Health Insurance [id number]. [id number] 2022 Medicaid [id number] 2022 Medicaid [id number] 2019 Unknown [facility] MED[facility] xxxxxxxxxxx 2019-Present [phone] CLAIMS DEPARTMENT [address] [place] [address] xxxxxxxxxxx [id number]. [id number] 2017 Unknown [id number] 2017 Unknown 1969 Unknown [id number] 2.16.840.1.761106.3.579.2. 900 1969 Unknown [id number] 2.16.840.1.854527.3.579.2. 900 1969 Unknown [id number] 2.16.840.1.895171.3.579.2. 900 1969 Unknown [id number] 2.16.840.1.708956.3.579.2. 900 1969 Unknown [id number] 2.16.840.1.852664.3.579.2. 900 1969 Unknown [id number] 2.16.840.1.190810.3.579.2. 593 1969 Unknown [id number] 2.16.840.1.916834.3.579.2. 593 1969 Unknown [id number] 2.16.840.1.603287.3.579.2. 593 1969 Unknown [id number] 2.16.840.1.070952.3.579.2. 593 1969 Unknown [id number] 2.16.840.1.262224.3.579.2. 593 1969 Unknown [id number] 2.16.840.1.771711.3.579.2. 593 1969 Unknown [id number] 2.16.840.1.885248.3.579.2. 593 1969 Unknown [id number] 2.16.840.1.612852.3.579.2. 593 1969 Unknown [id number] 2.16.840.1.851881.3.579.2. 593 1969 Unknown [id number] 2.16.840.1.050222.3.579.2. 593 1969 Unknown [id number] 2.16.840.1.056670.3.579.2. 593 1969 Unknown [id number] 2.16.840.1.693552.3.579.2. 593 1969 Unknown [id number] 2.16.840.1.885271.3.579.2. 593 1969 Unknown [id number] 2.16.840.1.873417.3.579.2. 593 1969 Unknown [id number] 2.16.840.1.827776.3.579.2. 594 1969 Unknown [id number] 2.16.840.1.281237.3.579.2. 594 1969 Unknown [id number] 2.16.840.1.877990.3.579.2. 594 1969 Unknown [id number] 2.16.840.1.752076.3.579.2. 727 1969 Unknown [id number] 2.16.840.1.998154.3.579.2. 727 1969 Unknown [id number] 2.16.840.1.878288.3.579.2. 727 1969 Unknown [id number] 2.16.840.1.916974.3.579.2. 727 1969 Unknown [id number] 2.16.840.1.618595.3.579.2. 727 1969 Unknown [id number] 2.16.840.1.899649.3.579.2. 727 1969 Unknown [id number] 2.16.840.1.770802.3.579.2. 173 1969 Unknown [id number] 2.16.840.1.444038.3.579.2. 173 1969 Unknown [id number] 2.16.840.1.876932.3.579.2. 173 1969 Unknown [id number] 2.16.840.1.954549.3.579.2. 173 1969 Unknown [id number] 2.16.840.1.904597.3.579.2. 173 1969 Unknown [id number] 2.16.840.1.786830.3.579.2. 173 1969 Unknown [id number] 2.16.840.1.733357.3.579.2. 727 1969 Unknown [id number] 2.16.840.1.851007.3.579.2. 7 1969 Unknown [id number] 2.16.840.1.744844.3.579.2. 727 1969 Unknown [id number] 2.16.840.1.581344.3.579.2. 727 1969 Unknown [id number] 2.16.840.1.150226.3.579.2. 727 1969 Unknown [id number] 2.16.840.1.114354.3.579.2. 1285 1969 Unknown [id number] 2.16.840.1.950727.3.579.2. 1285 1969 Unknown [id number] 2.16.840.1.247270.3.579.2. 1285 1969 Unknown [id number] 2.16.840.1.972738.3.579.2. 1285 1969 Unknown [id number] 2.16.840.1.995145.3.579.2. 1285 1969 Unknown [id number] 2.16.840.1.333474.3.579.2. 1285 1969 Unknown [id number] 2.16.840.1.030263.3.579.2. 1285 1969 Unknown [id number] 2.16.840.1.419789.3.579.2. 128 1969 Unknown [id number] 2.16.840.1.438716.3.579.2. 1285 1969 Unknown [id number] 2.16.840.1.236055.3.579.2. 128 1969 Unknown [id number] 2.16.840.1.409807.3.579.2. 1286 1969 Unknown [id number] 2.16.840.1.430114.3.579.2. 1286 1969 Unknown [id number] 2.16.840.1.702560.3.579.2. 1286 1959 Medicaid [id number] 1959 Unknown [id number] 1.2.840.041268.1.13.239.2. 7.3.549453.315 Unknown [id number] 2.16.840.1.968338.3.579.2. 531 Unknown [id number] 2.16.840.1.838410.3.579.2. 531 Social History Date Type Detail Facility Start: 06-09-2017 End: 11-02-2024 Tobacco smoking status MTIS Current every day smoker [facility] End: 10-30-2020 History of tobacco use Cigarette Smoker [facility] Start: 06-09-2017 End: 11-02-2024 Cigarettes smoked current (pack per day) - Reported [facility] Start: 1970 Sex Assigned At Not on file O [facility] Start: 08-22-2019 End: 11-08-2024 Alcohol intake Current non-drinker of alcohol (finding) [place] Exposure to SARS-CoV-2 (event) Unable to assess [place] Start: 03-08-2018 End: 11-02-2024 Tobacco use and exposure Never used [place] Start: 07-24-2014 Tobacco Comment Smokes < 1/2 p pd, smoker for 30+ years [facility] Start: 07-24-2014 Alcohol Comment Prior heavy dr carrillo, quit [address] [facility] Start: 08-12-2022 End: 11-02-2024 Sex Assigned At [employer] [facility] Start: 09-25-2021 End: 04-18-2023 Tobacco smoking status NHIS Smoker (finding) [facility] Start: 1970 Sex Assigned At Female F [facility] Start: 05-09-2016 Alcohol Comment been sober for 9 yea rs [facility] Start: 04-02-2023 Tobacco smoking status NHIS Current some day smoker [facility] Start: 08-08-2024 Gender identity Identifies as female gender (finding) [facility] How often to you hav e a drink containing alcohol? Never [facility]. Start: 02-08-2012 How many standard drinks containing alcohol do you have on a typical day? Patient does not drink [facility] Start: 06-25-2022 End: 09-27-2024 Tobacco smoking status NHIS Ex-smoker [facility] Start: 04-11-2023 End: 11-17-2024 Alcohol intake Ex-drinker (finding) [facility] Start: 06-25-2022 Alcohol Comment Has not consum ed alcohol in 12 years [facility] Start: 04-18-2012 Sex Female (finding) [employer] Start: 08-08-2024 Sexual orientation Heterosexual (fin nayan) [facility]. Start: 11-02-2024 Tobacco Comment Doing [facility] In the past 12 months, was there a time when you were not able to pay the mortgage or rent on time? No [facility]. (I/We) worried whether (my/our) food would run out before (I/we) got money to buy more. Never true [facility]B. NEGATED: Highlighted rowStart: NINF History of tobacco use Passive smoker [facility] Functional Status Date Assessment Result Facility 11-17-2024 Total score [AUDIT-C] 0 11/18/19 25 2:05 PM [facility] Clinical Notes 10-08-2019 to 12-13-2024 Mayra Santiago RN - 11/17/2024 3:24 PM Mayra Flynn RN - 11/17/2024 3:24 PM Colin Mendoza RN - 11/17/2024 2:08 PM Colin Mendoza RN - 11/17/2024 2:08 PM EDTPatient Instructions Note Date & Type Note Facility 12-13-2024 Note HNO ID: [id number] Author: LINDSEY WILLARD APRN.FLEXO PRESS OPERATOR Service: ? Author Type: Nurse Practitioner Type: [...] use and chronic pancreatitis who presented to [facility] Main ED on 12/09 with progressively worsening epigastric pain and N/V x3 days. Was seen in emergency department 12/[address] scan with chronic findings but also a mucosal pancreatic wall thickening. She follows with [facility] GI outpatient and underwent a celiac [...] entire pancreas. - Celiac plexus block performed. [facility] 11/02/2024 IMPRESSION AND PLAN Chioma Rainey is a 54 year old female who presents today for consult for pancreatitis. She has past medical history of gallstones s/p cholecystectomy, anemia and chronic ETOH pancreatitis. 1. Chronic pancreatitis, unspecified pancreatitis type (HCC) (K86.1) 2. E (more content not included)... [facility] 12-11-2024 Note HNO ID: [id number] Author: OBINNA GIFFORD RPh Service: Pharmacy Author [...] discharge medication list. Obinna Gifford RPh Pager: [phone] 12/11/2024 11:10 AM Medication List START taking [...] -120,000 unit delayed release capsule Generic drug: ruoyme-kgqlrxms-ccfuzbm Take 2 caps by mouth 3 times daily with meals and 1 cap with each snack. Take 1st cap before meal starts and the 2nd cap longterm through. Max of 10 capsules per day. STOP taking these medications PERCOCET 5-325 mg tablet Generic drug: oxyCODONE-acetaminophen Where to Get Your Medications These medications were sent to [id number] - [place] [address] - [address] - [phone] [place] [address] ondansetron 4 mg tablet oxyCODONE IR 5 mg immediate release tablet You can get these medications from any pharmacy You don't need a prescription for these medications acetaminophen 500 mg tablet [facility] 12-10-2024 Note HNO ID: [id number] Author: ALEXUS YOUNGBLOOD PA-C Service: Hospital Medicine Author Type: Physician Supervisor Kennel Type: Progress Notes Filed: 12/10/2024 12:27 Note Text: DEPARTMENT OF HOSPITAL MEDICINE PROGRESS NOTE SERVICE DATE: 12/10/2024 SERVICE TIME: 12:22 PM Hospital Medicine/Primary Attending: Marianna John MD NIGHT AND WEEKEND COVERAGE: [facility] COVERAGE: Days: [phone], please page Anastasiya Fabrizio for patient issues. Nights: [phone], please page Team GIM 2: G/H 8th floor: 53691; Non 8th floor [address] Subjective INTERVAL HPI: - patient resting in bed, reports improvement in pain. / currently in epigastric region, radiates to back [...] mg injection (PEPCID) 20 mg INTRAVENOUS DAILY peqmpq-zpayuunq-vqhypog 2 capsule cap(s) (CREON 24) 2 capsule [...] use and chronic pancreatitis who presented to [facility] Main ED on 12/09 with progressively [...] Prophylaxis/Anticoagulants 12/10/24 0357 activity - mobilize patient (fl,oh) VTE Prophylaxis: VTE prophylaxis appropriate Disposition: To be determined Plan of care discussed with Provider, RN, Patient Plan communicated to: Significant Other at bedside SIGNATURE: Alexus Youngblood PA-C PATIENT NAME: Chioma Rainey DATE: December 10, 2024 TIME: 12:22 PM [facility] 11-29-2024 Note Discharge Summary Admission and [...] with nausea. She was subsequently admitted to [facility] with acute on chronic pancreatitis with [...] with nursing staff, case management. Discharge medications: Hassell 325/5 mg every 6 hours as needed. [...] meal (11/29/24 09:02:00) Discharge Medication List Prescriptions Hassell 325 mg-5 mg oral tablet, 1 tab(s), [...] [place] Additional Instructions: Patient Education Acute Pancreatitis, Cmsp-ph-Zcql [facility] Comment on above: Result Comment: Elec [...] clear diet and advance as tolerated. Ordered: [facility] Hospital Care/Day Moderate 35 Minutes 17203 2. Leukocytosis (D72.829: Elevated white blood cell count, unspecified) Resolved. Ordered: [facility] Care/Day Moderate 35 Minutes 22050 3. History of alcohol use (Z87.898: Personal history of other specified conditions) Historical. Patient has been sober for 12 to 13 years. Ordered: [facility] Hospital Care/Day Moderate 35 Minutes 80801 4. Smoker (F17.200: Nicotine dependence, unspecified, uncomplicated) Recommend cessation. Disposition: Home soon in AM. I discussed the diagnosis and plan of care with the patient at the bedside. Moderate level of MDM based on addressing above issues. This documentation was transcribed using voice recognition software. Several attempts were made to ensure accuracy. However inadvertent computerized returner errors may be present. Tate Guido. Hospitalist. Ordered: [facility] Hospital Care/Day Moderate 35 Minutes 82823 Orders: HYDROmorphone, 1 mg = 1 mL, [...] Dis Tab, 4 (more content not included)... [facility] Comment on above: Result Comment: Elec tronically Signed By: SANDRA ALEXANDER, Tate\.br\Date and Time Signed: 11/28/24 10:41 EDT 11-28-2024 Note Marlyn Understands Medication Education Yes Marlyn Medication Education HYDROmorphone [facility] 11-27-2024 Note Progress Note-Physic malena Assessment/Plan 54-year-old female admitted for acute on chronic pancreatitis with leukocytosis. She has a history of alcohol use but not for 12-13 years chronic pancreatitis. 1. Acute on chronic pancreatitis (K85.90: Acute pancreatitis without necrosis or infection, unspecified) Known history of chronic pancreatitis to alcohol abuse [facility] November 09, 2023 with no acute abnormalities She also had an endoscopic nerve block by in [place] in November 17 Lipase trending down to 159 Continue n.p.o. except for ice chips Fluid hydration Pain control and antiemetics as needed Ordered: [facility] Care/Day Moderate 35 Minutes 98750 2. Leukocytosis (D72.829: Elevated white blood cell count, unspecified) Resolved; white count at 8.2 with no shift (was 15.3 on admission) Ordered: [facility] Care/Day Moderate 35 Minutes 01052 3. History of alcohol use (Z87.898: Personal history of other specified conditions) Clean and sober for 12 to 13 years Ordered: [facility] Hospital Care/Day Moderate 35 Minutes 47511 4. Smoker (F17.200: Nicotine dependence, unspecified, uncomplicated) Recommend cessation Ordered: [facility] Care/Day Moderate 35 Minutes 70222 Orders: Basic Metabolic Panel CBC w/ Indices [...] Tab, 25 mg= 1 tab(s), Oral, TID [facility] Comment on above: Result Comment: Elec tronically Signed By: Chi Hathaway DO.br\Date and Time Signed: 11/27/24 13:15 EDT 11-26-2024 Note Progress Note-Physic malena Assessment/Plan 54-year-old female admitted for acute on chronic pancreatitis with leukocytosis. She has a history of alcohol use but not for 12-13 years chronic pancreatitis. 1. Acute on chronic pancreatitis (K85.90: Acute pancreatitis without necrosis or infection, unspecified) Known history of chronic pancreatitis to alcohol abuse [facility] November 09, 2023 with no acute abnormalities She also had an endoscopic nerve block by in [place] in November 17 Lipase trending down to [...] 04:55:00) Lymph Auto: 39.1 % (11/26/24 04:55:00) [place] Auto: 9.7 % (11/26/24 04:55:00) Eos Auto: 1.7 % (11/26/24 04:55:00) Basophil Auto: 0.6 % (11/26/24 04:55:00) Neutro Absolute: 3.8 E9/L (11/26/24 04:55:00) Lymph Absolute: 3 E9/L (11/26/24 04:55:00) [place] Absolute: 0.7 E9/L (11/26/24 04:55:00) Eos Absolute: [...] mg= 1 tab(s) (more content not included)... [facility] Comment on above: Result Comment: Elec [...] reports being hospitalized a month ago at [facility] for 4 days. She had a MRCP at that time which showed no acute abnormalities (I was able to review the report in outside records). She also follows with a GI doc in [place] and had an endoscopic nerve block on [...] 15.3 gm/dL (11/24/24 22:06:00) Hct: 45.4 % (11/24/24:06:00) MCV: 95.9 fL (11/24/24 22:06:00) MCH: 32.2 pg (11/24/24:06:00) MCHC: 33.6 gm/dL (11/24/24:06:00) RDW: 13 % (11/24/24:06:00) Platelet: 373 E9/L (11/24/24:06:00) MPV: 7.8 fL (11/24/24:06:00) Neutro Auto: 70.1 % (11/24/24 22:06:00) Lymph Auto: 18.2 % (11/24/24 22:06:00) [place] Auto: 10.5 % (11/24/24 22:06:00) Eos Auto: 0.6 % (11/24/24:06:00) Basophil Auto: 0.6 % (11/24/24:06:00) Neutro Absolute: 10 E9/L High (11/24/24 22:06:00) Lymph Absolute: 2.6 E9/L (11/24/24 22:06:00) [place] Absolute: 1.5 E9/L High (11/24/24 22:06:00) Eos Absolute: 0.1 E9/L (11/24/24 22:06:00) Basophil Absolute: 0.1 E9/L (11/24/24:06:00) Glucose Lvl: 109 mg/dL (11/24/24 22:06:00) BUN: 12 mg/dL (11/24/24 22:06:00) Creatinine: 0.9 mg/dL (11/24/24:06:00) eGFR: 75 mL/min/1.73 m2 (09/18/25 22:06:00) BUN/Creat Ratio: 13 (11/24/24 22:06:00) Sodium Lvl: 139 mmol/L (11/24/24:06:00) Potassium Lvl: 3.8 mmol/L (11/24/24 22:06:00) Chloride: 100 mmol/L Low (11/24/24 22:06:00) CO2: 30 mmol/L (11/24/24:06:00) AGAP: 13 mEq/L (11/24/24:06:00) Calcium Lvl: 10.7 mg/dL (11/24/24 22:06:00) Alk Phos: 169 Int._Unit/L High (11/24/24:06:00) ALT: 12 Int._Unit/L (11/24/24:06:00) AST: 19 Int._Unit/L (11/24/24:06:00) Total Protein: 7.9 gm/dL High (11/24/24 22:06:00) Albumin Lvl: 4.9 gm/dL (11/24/24 22:06:00) Globulin: 3 gm/dL (11/24/24 22:06:00) A/G Ratio: 1.6 (11/24/24:06:00) Bili Total: 0.4 mg/dL (11/24/24 22:06:00) Bili Direct: 0 mg/dL (11/24/24:06:00) Bili Indirect: 0.4 mg/dL (11/24/24:06:00) Lipase Lvl: 303 unit/L High (11/24/24:06:00) Assessment/Plan 1. Acute on chronic pancreatitis (K85.90: Acute pancreatitis without necrosis or infection, unspecified) Patient with known chronic pancreatitis due to hx ETOH abuse. Had an MRCP at [facility] on 11/08/24 with no acute abnormalities present. Therefore did not feel further imaging needed at this time unless patient fails to improve as expected. Lipase 303 Ice Chips for now until vomiting resolved NS at 150 cc/hr Ordered Dilaudid IV prn pain and Zofran prn n/v s/p endoscopic nerve block by GI in [place] on 11/17. 2. Leukocytosis (D72.829: Elevated white [...] qualifying data Medicati (more content not included)... [facility] Comment on above: Result Comment: Elec tronically Signed By: Chi Hathaway DO.br\Date and Time Signed: 11/25/24 15:38 EDT 11-17-2024 [...] None Electronically Signed By: Mayra Santiago RN [facility] 11-17-2024 Nurse Note AMBULATORY PATIENT EDUCATION [...] In Department: GASTROENTEROLOGY documented in this encounter [facility] 11-17-2024 Note Q3 Patient Name: Chioma Rainey Procedure Date: 11/17/2024 2:39 PM Date of : 1970 Admit Type: Outpatient Age: 54 Gender: Female Note Status: Finalized Attending MD: Josse Romo MD, [id number] Procedure: Upper EUS Indications: Celiac plexus block for visceral abdominal pain Providers: Josse Romo MD Patient Profile: This is a 54 year old female. Referring Physician: Lindsey Willard (Referring ) Medicines: Monitored Anesthesia Care Complications: No immediate [...] Status: Finalized Attending MD: Josse Romo MD, [id number] Procedure: Upper EUS Indications: Celiac plexus block [...] 0 Note Initiated On: 11/17/2024 2:39 PM [facility] 11-17-2024 Nurse Note PRE OP LEARNING ASSESSMENT PROCEDURE/SURGERY: GI PROCEDURES: EGD and ESU READINESS TO LEARN COGNITIVE ABILITY: Alert and oriented MOTIVATION TO LEARN: Eager FAMILY SUPPORT: High - Very involved in pt care PATIENT LEARNS BEST BY: Individual Instruction Verbal Instruction FACTORS AFFECTING LEARNING: None PHYSICAL LIMITATIONS AFFECTING LEARNING: None Electronically Signed By: Colin Guzman RN In Department: GASTROENTEROLOGY [facility] 11-09-2024 History of Present illness Narrative Pt is leaving the floor at this time with family. Pt leaving AMA. Pt called out at this time stating they would like to leave AMA. Choke Setter to bedside. AMA forms reviewed and signed by pt. Choke Setter reviewed potential complications of leaving AMA as described on forms. IV removed. Pt is getting dressed. Family will be driving pt home. Patient was able to get some good sleep throughout the night post ativan. Patient was updated that patient's diet has increased to clear liquid diet. Patient is pleased. Patient denies any needs before va underwriter leaving shift. Choke Setter spoke with Obinna MORALEZ regarding patient's anxiousness and anxiety attack earlier. Choke Setter informed FLEXO PRESS OPERATOR that patient was requesting something to at least help patient get some sleep. Obinna MORALEZ to put in a one time dose of IV ativan. Choke Setter came to bedside to administer night time medication and give prn pain medications. Patient is tearful, anxious and very upset at this time. Choke Setter spent a good 30 minutes at bedside [...] ready to just leave and go home. Choke Setter gave emotional support to patient, giving words of reassurance and understanding as well as expressed sympathy as well as solutions for patient. Choke Setter apologized to patient for not coming understanding what is going on. Choke Setter educated patient on pancreatitis breaking it down to the simplest of terms and what we are currently doing to help her situation. Choke Setter educated patient on the importance of bowel rest will help with patient's ongoing issue right now. Choke Setter explained the process of getting over her flare up and how it is going to take time and cannot happen overnight. Choke Setter also went over labs and broken them down to elementary school level terms so patient could understand the meaning as patient stated she was so confused on the number that were getting thrown around. Choke Setter continued to let patient vent more and va underwriter answered patient's questions as best as va underwriter was able to within scope. Choke Setter instructed to patient that va underwriter will talk to Obinna MORALEZ about getting something for sleep as patient states I just want to stop hurting and I just want to be able to sleep. After everything and the conversation had ended, patient had felt more better and was no more talking about leaving AMA. Choke Setter will speak to Obinna MORALEZ and update [...] Diagnostic Data: Complete Blood Count: Recent Labs 11/06/24193311/07/24 0555 11/08/24 0545 WBC 7.8 7.1 5.8 RBC 4.41 3.91* 3.61* HGB 14.5 12.9 11.9 HCT 43.1 39.3 35.6* MCV 97.7 100.5 98.6 MCH 32.9 33.0 33.0 MCHC 33.6 32.8 33.4 RDW 12.2 12.7 12.5 PLT 224 177 153 MPV 9.5 10.4 9.8 Last 3 Blood Glucose: Recent Labs 11/06/24193311/07/2455 11/08/24 0545 GLUCOSE 97 92 96 Comprehensive [...] none Nutrition status: at risk for malnutrition Senior Net Software Engineer consult initiated I/O Daily weight Monitor Daily intake Nutritional Supplements as tolerated MALNUTRITION ASSESSMENT AND PLAN The following was documented by the Dietitian: Malnutrition Assessment Context of Malnutrition: Chronic Illness (11/07/241041) Chronic Illness - Energy Intake : Mild decrease in energy intake (4 days prior to admission) (11/07/24 104) Chronic Illness - Weight Loss : No weight loss (11/07/241041) Chronic Illness - Body Fat Loss: No body fat loss (11/07/241041) Chronic Illness - Muscle Mass Loss: No muscle mass loss (11/07/241041) Chronic Illness - Fluid Accumulation : No fluid accumulation (11/07/241041) Chronic Illness - Wagon Winder Strength: Not Performed (11/07/241041) Chronic Illness - Malnutrition Score: 0 (11/07/241041) Malnutrition Status: At risk for malnutrition (11/07/24 1042) I agree with the dietitian's malnutrition assessment. Medical Nutrition Therapy: continue current nutrition therapy Hospital Prophylaxis: DVT: SCD's Stress Ulcer: H2 Portillo Disposition: Shared decision making: All test results, treatment options and disposition options were discussed with the patient today Social determinants of health that may impact management: none Code status: Full Code Disposition: Discharge plan is pending [facility] Advanced Care Planning documentation: [x] [...] the patient's medical record. [DOES NOT SATISFY [facility] PERFORMANCE] ALEA Bowman CNP , ALEA, WATERSHED ENGINEER-C Hospitalist Medicine 11/08/2024, 8:00 AM Cosigned by Raji Gilliam MD at 11/08/2024 12:47 PM EDT Associated attestation - Raji Gilliam MD - 11/08/2024 12:47 PM EDT Raji Gilliam M.D. Internal Medicine PA/WATERSHED ENGINEER Attestation Note Patient: Chioma Arciniega Date of Admission: 11/06/2024 6:24 PM Date of Evaluation: 11/08/2024 I personally evaluated and examined the patient [id number] in conjunction with the PA/WATERSHED ENGINEER and agree with the management and dispostition of the patient. Please see the PA/WATERSHED ENGINEER's note for full details. My garcia findings [...] lesions. DATA: Complete Blood Count: Recent Labs 11/06/24 1934 11/07/24 0555 11/08/24 0545 WBC 7.8 7.1 5.8 RBC 4.41 3.91* 3.61* HGB 14.5 12.9 11.9 HCT 43.1 39.3 35.6* MCV 97.7 100.5 98.6 RDW 12.2 12.7 12.5 PLT 224 177 153 Recent Labs 11/06/24193311/07/24 0555 11/08/24 0545 NEUTROABS 4.97 4.22 2.91 LYMPHOPCT 21* 27 29 LYMPHSABS 1.66 1.93 1.70 MONOPCT 12 11 17* BASOPCT 1 1 1 IMMGRAN 0 0 0 CMP: Recent Labs 11/06/24193311/07/24 0555 11/08/24 0545 NA 140 139 139 K [...] risk for malnutrition due to current illness Senior Net Software Engineer consult appreciated Monitor daily weights Monitor daily I/O's Medication monitoring / High risk medications: Parenteral administration of controlled substance(s) requiring close monitoring Disposition: Discharge plan is pending SHARED APC VISIT, PHYSICIAN ATTESTATION: Wqij-sq-sxrr I personally performed a substantive part of [...] interpretation discussed with NAOMY Valdovinos MD , M.D. 11/08/2024 12:32 PM Choke Setter to bedside to complete morning assessment. Upon entry to room, pt resting in bed, respirations even while on room air. Vitals obtained and assessment completed, see flow sheet for details. Call light in reach. Care ongoing. Pt called out for assistance with IV. New transparent dressing placed. IV is still patent, with good blood return. IV fluids continued as ordered. Care on-going. Choke Setter at bedside for shift assessment. PT A&O [...] mass loss Fluid Accumulation: No fluid accumulation Wagon Winder Strength: Not Performed Nutrition Assessment: Inadequate oral intakes r/t altered GI function aeb NPO, nausea, GI abnormality lipase 285. Pt with recurrent pancreatitis. Follows GI in [place] and [place]. Pt states she has been dealing with this for 16 years, declined diet education. c/o continued nausea. Needs easy to chew low fat diet when advanced. Nutrition Related Findings: active bowel sounds, no edema Wound Type: None Current Nutrition Intake & Therapies: Average Meal Intake: NPO Average Supplements Intake: NPO Diet NPO Anthropometric Measures: Height: 157.5 cm (5' 2 ) Watkins Body Weight (IBW): 110 lbs (50 kg) [...] Used for Energy Requirements: Current Energy (kcal/day): 8635-5894 (25-28/kg) Weight Used for Protein Requirements: Current [...] 0.8 0.8 CALCIUM 10.4 9.1 Recent Labs 11/06/24193311/07/24 0555 AST 26 145* ALT 13 42* [...] to determine [address], ERIN Contact: [phone] Medicated for nausea and pain at this [...] patient folder Pt arrived to [facility] 319 via wheelchair from ED. Pt able [...] care ongoing. documented in this encounter [facility] 11-02-2024 Instructions Lindsey Willard APRN.FLEXO PRESS OPERATOR - 11/02/2024 1:26 PM EDT We discussed [...] This has been sent to your pharmacy ([facility] in [place], [place]) with a 90-day supply and 3 [...] your stomach and bowel problems. References: 1. Leander-kassidy WOODARD. Pancreatic enzyme therapy for pancreatic exocrine insufficiency. Curr Gastroenterol Rep. 2007;9(2):116-122. 2. America M, Luzmaria M, Orquidea JS. Pancreatic enzyme pharmacotherapy. Pharmacotherapy. 2007;27(6):910-920. 3. Dorothy Wallace, Ivan J, Marc Sahni. Enzyme repalcementtherapy for pancreatic insufficiency: present and future. Clin Exp Gastroenterol. 2011;4:55-73. 4. Anabella. Treatment of pancreatic exocrine deficiency. World J. Surg.2003;27(11):5270-6694. 5. [place] Diabetes Association. Diagnosis and classification of diabetes [...] a prospective multicenter study. Dig Dis Sci. 2003;48(9):9431-5368. 9. Cystic Fibrosis Foundation. Use of pancreatic enzyme supplements for patietns with cystic fibrosis in the context of fibrosing colonopathy. https://www.cff.org/uploadedFiles/ Content/For_Caregivers/Clinical_Ca re_Guidelines/Nutrition_and_GI_Cli nical_Care_Guidelines/Consensus-St tyremll-Wpuxibezzf-Aokcjk-Replacem .pdf. Accessed February 13, 2017. 10. Danya Vieira. Diagnosis and treatment of pancreatic exocrine insufficiency. World J Gastroenterol. 2013;19(42):9146-8300. 11. Adeline JE, Bradford J, Ria M, Tejas A, Luana M. Effect of the administration schedule on the [...] snack: When are you taking your enzymes? (Ambler one) Before Meal During Meal After Meal During the past two weeks, how often have you: Had frequent diarrhea? Almost Always Often Sometimes Never Had greasy stools? Almost Always Often Sometimes Never Had loose stools? Almost Always Often Sometimes Never [place] bloated? Almost Always Often Sometimes Never Had [...] 6 or more documented in this encounter [facility] 11-02-2024 Note HNO ID: [id number] Author: LINDSEY WILLARD APRN.CNP Service: ? Author [...] She was seen 2 days ago at [facility] and had a lipase of 58. I do not think she needs another workup at this point. She states she has an appointment with a hospital social worker on Thursday. I will get her some [...] patient to home. (more content not included)... [facility] 11-02-2024 History of Present illness Narrative [...] She was seen 2 days ago at [facility] and had a lipase of 58. I do not think she needs another workup at this point. She states she has an appointment with a hospital social worker on Thursday. I will get her some [...] health. I spent more than 30 minutes rakc-dk-tzhe with the patient and over half the time was devoted to counseling and/or coordination of care. Recording using ASSIA software for draft documentation of the visit was discussed with the patient/authorized sales representative printing paper; all questions welcomed and answered. Patient/authorized sales representative printing paper agreed to proceed Lindsey Willard APRN.NAOMY documented in this encounter [facility] 10-28-2024 Radiology Diagnostic study note [facility] [place] [address] CT Scan Report Signed Patient: Chioma Arciniega MR#: [id number] : 1970 Acct:[id number] Age/Sex: 54 / F ADM Date: 5 Loc: ER Room: Type: [facility] ER Attending Dr: Copies to: Andrew [...] Mendieta M.D. 10/28/2024 4:38 PM Dictation Location: [place] [address] Transcribed By: [facility] 10/28/24 1638 Dictated By: Cruzito Mendieta DO 10/28/24 1636 Signed By: 10/28/24 1638 [facility] 10-28-2024 Hospital Discharge instructions Additional Instructions It is very important that you follow up with your primary care provider in the next 2-3 days unless instructed to do otherwise. If you do not have a primary care provider, you can contact [facility] and ask about being established for primary care services. If you require specialist follow up, such as with an orthopedic physician, dye operator, urologist, or other medical specialty, you should [...] should first take Tylenol or ibuprofen available jopr-pfe-ntavwvn. Medications, if prescribed to treat pain from [...] or if you have any other concerns [facility] Work Phone: 10-24-2024 Note ED Patient [...] urine pale yellow. General instructions ??? Take bzlc-uaj-phtziin and prescription medicines only as told by your health care provider. These include vitamin supplements. ??? Ask your health care provider if the medicine prescribed to you: ? Requires you to avoid driving or using machinery. ? Can cause constipation. You may need to take these actions to prevent or treat constipation: ? Take ixni-mbr-tcycvxk or prescription medicines. ? Eat foods that are high in fiber, such as beans, whole grains, and fresh fruits and vegetables. ? Limit foods that are high in fat and processed sugars, such as fried or sweet foods. ??? Do not use any products that contain nicotine or tobacco. These (more content not included)... [facility] 10-19-2024 Radiology Diagnostic study note [facility] Main [place] [address] [place] [address] CT Scan Report Signed Patient: Chioma Arciniega MR#: [id number] : 1970 Acct:[id number] Age/Sex: 54 / F ADM Date: 5 Loc: ER Room: Type: [facility] ER Attending Dr: Copies to: Diomedes [...] Mendieta M.D. 10/19/2024 10:12 PM Dictation Location: [facility] Transcribed By: [facility] 10/19/242211 Dictated By: Cruzito Mendieta DO 10/19/242203 Signed By: 10/19/242211 [facility] 10-09-2024 Note ED Patient Education [...] urine pale yellow. General instructions ??? Take ggmx-rij-qywpnrq and prescription medicines only as told by your health care provider. These include vitamin supplements. ??? Ask your health care provider if the medicine prescribed to you: ? Requires you to avoid driving or using machinery. ? Can cause constipation. You may need to take these actions to prevent or treat constipation: ? Take mjwz-vsd-gxmmwun or prescription medicines. ? Eat foods that are high in fiber, such as beans, whole grains, and fresh fruits and vegetables. ? Limit foods that are high in fat and processed sugars, such as fried or sweet foods. ??? Do not use any products that contain nicotine or tobacco. These (more content not included)... [facility] 10-03-2024 Note ED Patient Education Note [...] urine pale yellow. General instructions ??? Take zdcs-[id number] and prescription medicines only as told by your health care provider. These include vitamin supplements. ??? Ask your health care provider if the medicine prescribed to you: ? Requires you to avoid driving or using machinery. ? Can cause constipation. You may need to take these actions to prevent or treat constipation: ? Take tjab-gxo-mywnajy or prescription medicines. ? Eat foods that are high in fiber, such as beans, whole grains, and fresh fruits and vegetables. ? Limit foods that are high in fat and processed sugars, such as fried or sweet foods. ??? Do not use any products that contain nicotine or tobacco. These (more content not included)... [facility] 09-27-2024 Hospital Discharge instructions Tasha Zamora [...] be sent through Care Everywhere.Nausea and Vomiting ([place])documented in this encounter [facility] 09-20-2024 Hospital Discharge instructions Tasha Zamora MD [...] attachments cannot be sent through Care Everywhere.Pancreatitis ([place])Pancreatitis: Chronic Diet ([place])documented in this encounter [facility] 05-31-[address] ABDOMEN AND PELVI S [...] London Hurd DO on 05/31/2024 3:21 PM [facility] 04-07-2024 Hospital Discharge instructions Peter Escalera MD - 04/07/2024 6:10 PM EST Please start a clear liquid diet today and tomorrow, advance as tolerated, avoid alcohol. Follow-up with your GI doctor tomorrow for further recommendations. The following attachments cannot be sent through Care Everywhere.Pancreatitis ([place])Clear Liquid Diet: General Info ([place])documented in this encounter [facility] 01-19-2024 Nurse Surgical operation note Patient mets [...] off unit via wheelchair w/ family assistance. [facility] 01-19-2024 Nurse Note Patient mets discharge [...] w/ family assistance. documented in this encounter [facility] 01-19-2024 History and physical note ENDOSCOPIC PREPROCEDURE HISTORY AND PHYSICAL HISTORY OF PRESENT ILLNESS: Chioma Rainey is a 53 y.o. female seen in the pre-procedure area at [facility]. The indication for endoscopic [...] 50,000 Units, Oral, WEEKLY Pancreatic enzymes (Creon) [id number] units Cap DR Particles capsule 72,000 Units, Oral, 2 TIMES DAILY WITH MEALS Current Outpatient Medications: Ergocalciferol 1.25 MG (09296 UT) capsule, Take 1 capsule by mouth once a week., Disp: 8 capsule, Rfl: 0 Pancreatic enzymes (Creon) [id number] units Cap DR Particles capsule, Take 3 [...] using Monitored Anesthesia Care. Daniel Christiansen MD [facility] Work Phone: 01-19-2024 History and physical note ENDOSCOPIC PREPROCEDURE HISTORY AND PHYSICAL HISTORY OF PRESENT ILLNESS: Chioma Rainey is a 53 y.o. female seen in the pre-procedure area at [facility]. The indication for endoscopic evaluation includes: Alcohol-induced chronic pancreatitis PAST MEDICAL HISTORY: Past Medical History: Diagnosis Date Anemia Depression H. pylori infection Neutrophilic leukocytosis Pancreatitis SURGICAL HISTORY: Past Surgical History: Procedure Laterality Date EGD W/ ULTRASOUND 09/08/2023 for nerve block EGD W/ ULTRASOUND N/A 12/01/2019 Laterality: N/A; Surgeon: Sabrina Dee MD, MPH; Location: [facility] EGD W/ ULTRASOUND N/A 04/23/2016 Laterality: N/A; Surgeon: Pineda Troy MD; Location: [facility] EGD W/ ULTRASOUND N/A 01/23/2016 Laterality: N/A; Surgeon: Pineda Troy MD; Location: [facility] CHANGE TUBE GASTROSTOMY N/A 08/20/2015 Laterality: N/A; Surgeon: Yanni Alonzo MD; Location: [facility] EGD DIAGNOSTIC N/A 06/25/2015 Laterality: N/A; Surgeon: Pindea Troy MD; Location: [facility] EGD W/ PLACEMENT OR REPLACEMENT PEG N/A 06/15/2015 Laterality: N/A; Surgeon: Curry Newell MD; Location: [facility] EGD W/ INSERTION TUBE OR CATHETER N/A 06/13/2015 Laterality: N/A; Surgeon: Jose Ty MD; Location: [facility] EGD W/ ULTRASOUND N/A 02/14/2015 Laterality: N/A; Surgeon: Pineda Troy MD; Location: [facility] CHOLECYSTECTOMY CHOLECYSTECTOMY, LAPAROSCOPIC HYSTERECTOMY MEDICATIONS: Current Outpatient Medications Medication Instructions Ergocalciferol (VITAMIN D2) 50,000 Units, Oral, WEEKLY Pancreatic enzymes (Creon) [id number] units Cap DR Particles capsule 72,000 Units, Oral, 2 TIMES DAILY WITH MEALS Current Outpatient Medications: Ergocalciferol 1.25 MG (16971 UT) capsule, Take 1 capsule by mouth once a week., Disp: 8 capsule, Rfl: 0 Pancreatic enzymes (Creon) [id number] units Cap DR Particles capsule, Take 3 [...] Christiansen MD documented in this encounter [facility] 01-07-2024 Hospital Discharge instructions Marina Jensen, ELECTRONIC TRAIN CONTROL TECHNICIAN - FLEXO PRESS OPERATOR - 01/07/2024 5:08 PM EDT Increase fluids. [place] diet Continue home medication The following attachments cannot be sent through Care Everywhere.Abdominal Pain ([place])Pancreatitis ([place])Pancreatitis: Chronic Diet ([place])documented in this encounter [facility] 09-08-2023 History and physical note ENDOSCOPIC [...] 50,000 Units, Oral, WEEKLY Pancreatic enzymes (Creon) 97435-[address] Particles capsule 72,000 Units, Oral, 2 TIMES DAILY WITH MEALS Current Outpatient Medications: Ergocalciferol 1.25 MG (17010 UT) capsule, Take 1 capsule by mouth once a week., Disp: 8 capsule, Rfl: 0 Pancreatic enzymes (Creon) [id number] units [address] Particles capsule, Take 3 [...] Anesthesia Care. Sabrina Dee MD, MPH [facility] 09-08-2023 History and physical note ENDOSCOPIC PREPROCEDURE HISTORY AND PHYSICAL HISTORY OF PRESENT ILLNESS: Chioma Rainey is a 53 y.o. female seen in the pre-procedure area at [facility]. The indication for endoscopic evaluation includes: Alcohol-induced chronic pancreatitis PAST MEDICAL HISTORY: Past Medical History: Diagnosis Date Anemia Depression H. pylori infection Neutrophilic leukocytosis Pancreatitis SURGICAL HISTORY: Past Surgical History: Procedure Laterality Date EGD W/ ULTRASOUND N/A 12/01/2019 Laterality: N/A; Surgeon: Sabrina Dee MD, MPH; Location: [facility] EGD W/ ULTRASOUND N/A 04/23/2016 Laterality: N/A; Surgeon: Pineda Troy MD; Location: [facility] EGD W/ ULTRASOUND N/A 01/23/2016 Laterality: N/A; Surgeon: Pineda Troy MD; Location: [facility] CHANGE TUBE GASTROSTOMY N/A 08/20/2015 Laterality: N/A; Surgeon: Yanni Alonzo MD; Location: [facility] EGD DIAGNOSTIC N/A 06/25/2015 Laterality: N/A; Surgeon: Pineda Troy MD; Location: [facility] EGD W/ PLACEMENT OR REPLACEMENT PEG N/A 06/15/2015 Laterality: N/A; Surgeon: Curry Newell MD; Location: [facility] EGD W/ INSERTION TUBE OR CATHETER N/A 06/13/2015 Laterality: N/A; Surgeon: Jose Ty MD; Location: [facility] EGD W/ ULTRASOUND N/A 02/14/2015 Laterality: N/A; Surgeon: Pineda Troy MD; Location: [facility] CHOLECYSTECTOMY CHOLECYSTECTOMY, LAPAROSCOPIC HYSTERECTOMY MEDICATIONS: Current Outpatient Medications Medication Instructions Ergocalciferol (VITAMIN D2) 50,000 Units, Oral, WEEKLY Pancreatic enzymes (Creon) [id number] units Cap [address] Particles capsule 72,000 Units, Oral, 2 TIMES DAILY WITH MEALS Current Outpatient Medications: Ergocalciferol 1.25 MG (38711 UT) capsule, Take 1 capsule by mouth once a week., Disp: 8 capsule, Rfl: 0 Pancreatic enzymes (Creon) 84027-[address] Particles capsule, Take 3 [...] MD, MPH documented in this encounter [facility] 09-08-2023 Miscellaneous Notes RN and MD educated pt on DC instructions, pt verbalized understanding. IV removed per protocol. documented in this encounter [facility] 09-08-2023 Nurse Note RN and educated pt on DC instructions, pt verbalized understanding. IV removed per protocol. [facility] 05-22-2023 Miscellaneous Notes Called patient to remind them to bring their most current copy of their medication list with them to their appt. Patient verbalizes understanding. documented in this encounter [facility] 05-22-2023 Telephone encounter Note Called patient to remind them to bring their most current copy of their medication list with them to their appt. Patient verbalizes understanding. [facility] 05-11-2023 History of Present illness Narrative This Clammer verified the patients name and date of [...] for pain management 5. Prior evaluation at [facility] for TPIAT and was not [...] (human immunodeficiency virus infection), Hyperlipidemia, Hyperthyroidism, Hypothyroidism, MA (myocardial infarction), Migraine, PEGGY (obstructive sleep apnea), [...] includes the following prescription(s): Pancreatic enzymes (Creon) 62112-[address] units [address] Particles capsule and Ergocalciferol 1.25 MG (75475 UT) capsule. Allergies: She is allergic to [...] and Nutrition documented in this encounter [facility] 05-11-2023 Instructions Sabrina Dee MD, MPH [...] celiac plexus block documented in this encounter [facility] 04-16-2023 Miscellaneous Notes Pt called requesting to schedule a new patient appt. Referral is in media from Tamela Keenan DO. A good phone number to reach the pt: [phone] Referral in media was to [facility] so pt has no referral to nephrology. LM informing pt she would need to have her referring provider fax us over a referral and then I could schedule her a new pt appt. documented in this encounter [employer] 04-16-2023 Telephone encounter Note Pt called requesting to schedule a new patient appt. Referral is in media from Tamela Keenan DO. A good phone number to reach the pt: [phone] [facility] 04-16-2023 Telephone encounter Note Referral in media was to [facility] so pt has no referral to nephrology. LM informing pt she would need to have her referring provider fax us over a referral and then I could schedule her a new pt appt. [facility] 04-16-2023 Miscellaneous Notes LMOM for the patient to call and schedule their new pt appointment with [facility]. documented in this encounter [facility] 04-16-2023 Telephone encounter Note LMOM for the patient to call and schedule their new pt appointment with [facility]. [facility] 08-12-2022 History and physical note ENDOSCOPIC PREPROCEDURE HISTORY AND PHYSICAL HISTORY OF PRESENT ILLNESS: Chioma Rainey is a 52 y.o. female seen in the pre-procedure area at [facility]. The indication for endoscopic evaluation includes: Alcohol-induced chronic pancreatitis PAST MEDICAL HISTORY: Past Medical History: Diagnosis Date Anemia Depression H. pylori infection Neutrophilic leukocytosis Pancreatitis SURGICAL HISTORY: Past Surgical History: Procedure Laterality Date EGD W/ ULTRASOUND N/A 12/01/2019 Laterality: N/A; Surgeon: Sabrina Dee MD, MPH; Location: [facility] EGD W/ ULTRASOUND N/A 04/23/2016 Laterality: N/A; Surgeon: Pineda Troy MD; Location: [facility] EGD W/ ULTRASOUND N/A [...] 20 mg, Oral, DAILY Pancreatic enzymes (Creon) [id number] units [address] Particles capsule 48,000 Units, Oral, 3 TIMES DAILY WITH MEALS Current Outpatient Medications: omeprazole [address] capsule, Take 1 capsule by mouth daily., Disp: 30 capsule, Rfl: 6 amitriptyline 10 MG tablet, Take 2.5 tablets by mouth at bedtime., Disp: 30 tablet, Rfl: 11 ergocalciferol 1.25 MG (38790 UT) capsule, Take 1 capsule by mouth once a week for 8 doses., Disp: 8 capsule, Rfl: 0 Pancreatic enzymes (Creon) [id number] units [address] Particles capsule, Take 2 [...] Anesthesia Care. Sabrina Dee MD, MPH [facility] 08-12-2022 History and physical note ENDOSCOPIC PREPROCEDURE HISTORY AND PHYSICAL HISTORY OF PRESENT ILLNESS: Chioma Rainey is a 52 y.o. female seen in the pre-procedure area at [facility]. The indication for endoscopic evaluation includes: Alcohol-induced chronic pancreatitis PAST MEDICAL HISTORY: Past Medical History: Diagnosis Date Anemia Depression H. pylori infection Neutrophilic leukocytosis Pancreatitis SURGICAL HISTORY: Past Surgical History: Procedure Laterality Date EGD W/ ULTRASOUND N/A 12/01/2019 Laterality: N/A; Surgeon: Sabrina Dee MD, MPH; Location: [facility] EGD W/ ULTRASOUND N/A 04/23/2016 Laterality: N/A; Surgeon: Pineda Troy MD; Location: [facility] EGD W/ ULTRASOUND N/A 01/23/2016 Laterality: N/A; Surgeon: Pineda Troy MD; Location: [facility] CHANGE TUBE GASTROSTOMY N/A 08/20/2015 Laterality: N/A; Surgeon: Yanni Alonzo MD; Location: [facility] EGD DIAGNOSTIC N/A 06/25/2015 Laterality: N/A; Surgeon: Pineda Troy MD; Location: [facility] EGD W/ PLACEMENT OR REPLACEMENT PEG N/A 06/15/2015 Laterality: N/A; Surgeon: Curry Newell MD; Location: [facility] EGD W/ INSERTION TUBE OR CATHETER N/A 06/13/2015 Laterality: N/A; Surgeon: Jose Ty MD; Location: [facility] EGD W/ ULTRASOUND N/A 02/14/2015 Laterality: N/A; Surgeon: Pineda Troy MD; Location: [facility] CHOLECYSTECTOMY CHOLECYSTECTOMY, LAPAROSCOPIC HYSTERECTOMY MEDICATIONS: Current Outpatient Medications Medication Instructions Amitriptyline (ELAVIL) 25 mg, Oral, DAILY AT BEDTIME Ergocalciferol (VITAMIN D2) 50,000 Units, Oral, WEEKLY omeprazole (PRILOSEC) 20 mg, Oral, DAILY Pancreatic enzymes (Creon) [id number] Particles capsule 48,000 Units, Oral, 3 TIMES DAILY WITH MEALS Current Outpatient Medications: omeprazole [address] capsule, Take 1 capsule by mouth daily., Disp: 30 capsule, Rfl: 6 amitriptyline 10 MG tablet, Take 2.5 tablets by mouth at bedtime., Disp: 30 tablet, Rfl: 11 ergocalciferol 1.25 MG (95601 UT) capsule, Take 1 capsule by mouth once a week for 8 doses., Disp: 8 capsule, Rfl: 0 Pancreatic enzymes (Creon) 29061-67331 units Cap DR Particles capsule, Take 2 [...] Dee MD, MPH documented in this encounter [facility] 08-12-2022 Nurse Note PT Given discharge paperwork and reviewed per MD and nurse. Handmade Tile Artist available.Diet and restrictions reviewed as well. Venous access removed no complications noted. Ok to d/c Anesthesia and procedural MD. documented in this encounter [facility] 08-12-2022 Nurse Surgical operation note PT Given discharge paperwork and reviewed per MD and nurse. Handmade Tile Artist available.Diet and restrictions reviewed as well. Venous access removed no complications noted. Ok to d/c Anesthesia and procedural . [facility] 06-16-2022 History of Present illness Narrative This Clammer verified the patients name and date of [...] for pain management 5. Prior evaluation at [facility] for TPIAT and was not a candidate 6. Last CT was at [facility] in 05/2019: No calcification in [...] (human immunodeficiency virus infection), Hyperlipidemia, Hyperthyroidism, Hypothyroidism, MA (myocardial infarction), Migraine, PEGGY (obstructive sleep apnea), [...] amitriptyline 10 MG tablet, ergocalciferol 1.25 MG (08624 UT) capsule, and Pancreatic enzymes (Creon) [id number] units [address] Particles capsule. Allergies: She [...] and Nutrition documented in this encounter [facility] 06-16-2022 Instructions Sabrina Dee MD, MPH - 06/16/2022 11:00 AM EDT Schedule EUS celiac plexus block; EGD dilation Referral to endocrinology; appointment to be scheduled Return to clinic in Mar 2023 Smoking cessation Vitamin D 2000 units daily Calcium supplement 1 gram daily Omeprazole (Prilosec) 20mg daily, take at least 30 mins before dinner documented in this encounter [facility] 01-28-2022 Miscellaneous Notes Attending physician in room speaking with patient and family on results. Attending physician ok for discharge. Pt ambulated unassisted with steady gait and balance. IV removed and discharge instructions given with verbal ok by patient of understanding. Pt discharged via w/c with sprinkler driver from unit. Dr dee aware patient ready for results Updated dr goins on patient pain and received new orders documented in this encounter [facility] 01-28-2022 Note Formatting of this n ote might be different from the original. Attending physician in room speaking with patient and family on results. Attending physician ok for discharge. Pt ambulated unassisted with steady gait and balance. IV removed and discharge instructions given with verbal ok by patient of understanding. Pt discharged via w/c with sprinkler driver from unit. [facility] 01-28-2022 Note Formatting of this n ote might be different from the original. Dr dee aware patient ready for results [facility] 01-28-2022 Note Formatting of this n ote might be different from the original. Updated dr goins on patient pain and received new orders [facility] 01-28-2022 History and physical note ENDOSCOPIC PREPROCEDURE HISTORY AND PHYSICAL HISTORY OF PRESENT ILLNESS: Chioma Rainey is a 51 y.o. female seen in the preoprocedure area at [facility]. The indication for endoscopic evaluation includes: Recurrent acute pancreatitis PAST MEDICAL HISTORY: Past Medical History: Diagnosis Date Anemia Depression H. pylori infection Neutrophilic leukocytosis Pancreatitis SURGICAL HISTORY: Past Surgical History: Procedure Laterality Date EGD W/ ULTRASOUND N/A 12/01/2019 Laterality: N/A; Surgeon: Sabrina Dee MD, MPH; Location: [facility] EGD W/ ULTRASOUND N/A 04/23/2016 Laterality: N/A; Surgeon: Pineda Troy MD; Location: [facility] EGD W/ ULTRASOUND N/A 01/23/2016 Laterality: N/A; Surgeon: Pineda Troy MD; Location: [facility] CHANGE TUBE GASTROSTOMY N/A 08/20/2015 Laterality: N/A; Surgeon: Yanni Alonzo MD; Location: [facility] EGD DIAGNOSTIC N/A 06/25/2015 Laterality: N/A; Surgeon: Pineda Troy MD; Location: [facility] EGD W/ PLACEMENT OR REPLACEMENT PEG N/A 06/15/2015 Laterality: N/A; Surgeon: Curry Newell MD; Location: [facility] EGD W/ INSERTION TUBE OR CATHETER N/A 06/13/2015 Laterality: N/A; Surgeon: Jose Ty MD; Location: [facility] EGD W/ ULTRASOUND N/A 02/14/2015 Laterality: N/A; Surgeon: Pineda Troy MD; Location: [facility] CHOLECYSTECTOMY CHOLECYSTECTOMY, LAPAROSCOPIC HYSTERECTOMY MEDICATIONS: Current Outpatient Medications Medication Instructions amitriptyline (ELAVIL) 25 mg, Oral, DAILY AT BEDTIME ergocalciferol (VITAMIN D2) 50,000 Units, Oral, WEEKLY Pancreatic enzymes (Creon) 61182-[address] units [address] Particles capsule 48,000 Units, Oral, 3 TIMES DAILY WITH MEALS Current Outpatient Medications: amitriptyline 10 MG tablet, Take 2.5 tablets by mouth at bedtime., Disp: 30 tablet, Rfl: 11 Pancreatic enzymes (Creon) [id number] units [address] Particles capsule, Take 2 capsules by mouth 3 times daily with meals., Disp: 180 capsule, Rfl: 0 ergocalciferol 1.25 MG (72050 UT) capsule, Take 1 capsule by mouth [...] Anesthesia Care. Sabrina Dee MD, MPH [facility] 01-28-2022 History and physical note ENDOSCOPIC PREPROCEDURE HISTORY AND PHYSICAL HISTORY OF PRESENT ILLNESS: Chioma Rainey is a 51 y.o. female seen in the preoprocedure area at [facility]. The indication for endoscopic evaluation includes: Recurrent acute pancreatitis PAST MEDICAL HISTORY: Past Medical History: Diagnosis Date Anemia Depression H. pylori infection Neutrophilic leukocytosis Pancreatitis SURGICAL HISTORY: Past Surgical History: Procedure Laterality Date EGD W/ ULTRASOUND N/A 12/01/2019 Laterality: N/A; Surgeon: Sabrina Dee MD, MPH; Location: [facility] EGD W/ ULTRASOUND N/A 04/23/2016 Laterality: N/A; Surgeon: Pineda Troy MD; Location: [facility] EGD W/ ULTRASOUND N/A 01/23/2016 Laterality: N/A; Surgeon: Pinead Troy MD; Location: [facility] CHANGE TUBE [...] 50,000 Units, Oral, WEEKLY Pancreatic enzymes (Creon) 25657-[address] Particles capsule 48,000 Units, Oral, 3 TIMES DAILY WITH MEALS Current Outpatient Medications: amitriptyline 10 MG tablet, Take 2.5 tablets by mouth at bedtime., Disp: 30 tablet, Rfl: 11 Pancreatic enzymes (Creon) [address] Particles capsule, Take 2 capsules by mouth 3 times daily with meals., Disp: 180 capsule, Rfl: 0 ergocalciferol 1.25 MG (36191 UT) capsule, Take 1 capsule by mouth [...] MD, MPH documented in this encounter [facility] 12-16-2021 History of Present illness Narrative [...] for pain management 5. Prior evaluation at [facility] for TPIAT and was not a candidate 6. Last CT was at [facility] in 05/2019: No calcification in [...] (human immunodeficiency virus infection), Hyperlipidemia, Hyperthyroidism, Hypothyroidism, MA (myocardial infarction), Migraine, PEGGY (obstructive sleep apnea), [...] 10 MG tablet and Pancreatic enzymes (Creon) 85913-[address] Particles capsule. Allergies: She [...] in 6 months documented in this encounter [facility] 12-16-2021 Instructions Sabrina Dee MD, MPH - 12/16/2021 11:30 AM EDT Schedule DEXA scan Schedule colonoscopy Schedule EUS Start vitamin D 1,000 units daily. Start calcium supplements 1g daily RTC in 6 months [facility] Evaluation note Encounter Date [...] Patient care instructions given in writting by [facility] Care At Home document [employer] Other 08-01-2020 History general Narrative - Reported* Type Description Date Medical History chronic pancreatitis Medical History chronic pain Medical History former alcoholic Surgical History [facility]- [facility] 10[facility]2019 Surgical History GALLBLADDER Surgical History COLON-[facility] Hospitalization History see above [employer] Other Evaluation noteNo assessment information available [facility] Work Phone: Evaluation note* Diagnosis Recurrent acute pancreatitis- Primary Acute pancreatitis History of smoking 25-50 pack years Alcohol-induced chronic pancreatitis Chronic pancreatitis Epigastric pain Abdominal pain, epigastric Encounter for screening colonoscopy Special screening for malignant neoplasms, colon [facility] Recurrent acute pancreatitis Acute pancreatitis History of smoking 25-50 pack years Encounter for screening colonoscopy Special screening for malignant neoplasms, colon [facility] Other osteoporosis without current pathological fracture- Primary Recurrent acute pancreatitis Acute pancreatitis Encounter for screening colonoscopy Special screening for malignant neoplasms, colon [facility] Encounter for screening colonoscopy Special screening for malignant neoplasms, colon [facility] Osteoporosis without current pathological fracture, unspecified osteoporosis type- Primary Alcohol-induced chronic pancreatitis Chronic pancreatitis [facility] Alcohol-induced chronic pancreatitis Chronic pancreatitis [facility] Alcohol-induced chronic pancreatitis- Primary Chronic pancreatitis Encounter for screening for malignant neoplasm of colon Special screening for malignant neoplasms, colon Other osteoporosis without current pathological fracture Epigastric pain Abdominal pain, epigastric Smoking Tobacco use disorder Gastroesophageal reflux disease without esophagitis Esophageal reflux [facility] Diagnosis Alcohol-induced chronic pancreatitis Chronic pancreatitis [facility] Diagnosis Alcohol-induced chronic pancreatitis Chronic pancreatitis [facility] Diagnosis Hypokalemia- Primary Hypopotassemia Acute recurrent pancreatitis Acute pancreatitis [facility]* Diagnosis Acute on chronic pancreatitis (HCC)- Primary Abdominal pain, epigastric [facility] Diagnosis Acute pancreatitis without infection or necrosis, unspecified pancreatitis type- Primary Acute recurrent pancreatitis Acute pancreatitis documented in this [facility] note* Diagnosis Abdominal pain, epigastric- Primary documented in this encounter [facility] note* Diagnosis Other chronic pancreatitis (HCC)- Primary documented in this encounter [facility] note* Diagnosis Abdominal pain, epigastric- Primary Nausea and vomiting, unspecified vomiting type documented in this encounter [facility] note* Diagnosis Chronic pancreatitis, unspecified pancreatitis type (HCC)- Primary Exocrine pancreatic insufficiency (HCC) Other specified disease of pancreas Epigastric pain Abdominal pain, epigastric Loose stools Abnormal feces Heartburn Tobacco use Tobacco use disorder documented in this encounter [facility] note* Diagnosis Acute on chronic pancreatitis (HCC)- Primary Acute pancreatitis, unspecified complication status, unspecified pancreatitis type documented in this encounter [facility] note* Diagnosis Chronic pancreatitis, unspecified pancreatitis type (HCC) Epigastric pain Abdominal pain, epigastric Loose stools Abnormal feces Heartburn Exocrine pancreatic insufficiency (HCC) Other specified disease of pancreas [facility] Additional Instructions Fluids Phenergan if needed for nausea vomiting Bentyl as needed for abdominal pain Follow-up with your GI specialist call Thursday for appointment Return here if any problems persist or [facility] Discharge instructions Additional Instructions Clear with diet today and advance as tolerated Push fluids Percocet if needed for severe pain Zofran or Phenergan if needed for nausea vomiting Keep your doctor's appointment tomorrow as planned Return here if you develop any increased pain, vomiting unable to be controlled, fevers, chills or any other concernKind[facility] Work Phone: Hospital Discharge instructions Additional Instructions Follow-up with your primary care doctor Return to ED if develop worsening symptoms or concernsKind[facility] Work Phone: Hospital Discharge instructions Additional Instructions Follow-up with your private physician as your calcium was slightly elevated Return if symptoms are worse Lots of fluids/no alcoholK[facility] Work Phone: Hospital Discharge instructions* Attachments The following attachments cannot be sent through Care Everywhere. * Clear Liquid Diet: General Info ([place]) [facility]* Attachments The following attachments cannot be sent through Care Everywhere. * Abdominal Pain ([place] Islander) [facility] Dis[facility] instructions Additional Instructions Clear liquid diet and then advance as tolerated Avoid any spicy, hot, fried foods Zofran for nausea vomiting Hassell if needed for severe pain Follow-up with your GI specialist call tomorrow for appointment Return here if any problems persist or worsenKind[facility] Work Phone: Hospital Discharge instructions* Attachments The following attachments cannot be sent through Care Everywhere. * Pancreatitis ([place] Island[place]) documented in this encounterBon [facility] HospitalInstructionsNot on file documented in this encounterProHale [facility]irm[facility] iZoca SystemInstructionsNot on file documented in this encounterProHale Infirmary iZoca SystemInstructionsNot on file documented in this encounterProWayne Hospital SystemReason for referral (narrative)No reason for referral information availableK[facility] Work Phone: Reason for visit Narrative* Outpatient Procedure (Routine) - Closed Specialty Diagnoses / Procedures Referred By Zia t Referred To Contact [facility] Diagnoses Chronic pancreatitis, unspecified pancreatitis type (HCC) Epigastric pain Loose stools Heartburn Exocrine pancreatic insufficiency (HCC) Procedures EGD - THERAPEUTIC, EUS, OR TUBE INTERVENTIONS EGD TRANSORAL BIOPSY SINGLE/MULTIPLE Lindsey Willard APRN.FLEXO PRESS OPERATOR [address] [place] [address] Phone: tel: fax: [facility] [address] [place] [address] Referral ID Status Reason Start Date Expiration Date V isits Requested Visits Authorized [id number] Closed Auto-Generate d Referral 11/02/2024 11/02/2025 1 1 [facility] Discharge Instructions * Jose Brown PA-C [...] Log into your personal health record on [email or web address] and enter E907 in the Education box to learn more about Abdominal Pain: Care Instructions. Current as of: August 03, 2015 Content Version: 11.2 4819-7255 [employer]. Care instructions adapted under license by your healthcare professional. If you have questions about a medical condition or this instruction, always ask your healthcare professional. [employer] disclaims any warranty or liability for your [...] Log into your personal health record on [email or web address] and enter H591 in the Education box to learn more about Nausea and Vomiting: Care Instructions. Current as of: August 03, 2015 Content Version: 11.2 5809-7787 [employer]. Care instructions adapted under license by your healthcare professional. If you have questions about a medical condition or this instruction, always ask your healthcare professional. [employer] disclaims any warranty or liability for your use of this information. Please review regarding your visit: Please note that your blood pressure during this ER visit was above 120/80 mmHg. YOUR BP READING WAS: 111/88 The [place] [employer] (AHA) defines a normal blood [...] review at your convenience for more information: http://[email or web address].org/HEARTORG/Conditions/[email or web address] [email or web address] in this encounter* Discharge Instr - Other Orders - Poncho Sparks RN - 05/15/2017 1:20 PM EST Patient voices desire to leave hospital AMA. IV removed. Patient is ambulatory in care of spouse. [facility] hospitalist notified. in this encounter* Montse Khan CNP - 08/24/2017 Seek medical attention if you have worsening symptoms or other concerns. Please follow up with your family doctor or one of your choosing. You may find a provider through the [facility] Physician Referral Service by calling [phone]) or by visiting [email or web address] Chioma, Thank You for choosing [facility]! The following attachments cannot be sent through Care Everywhere. * Nausea and Vomiting ([place] Island[place]) * Gastroenteritis ([place] Island[place]) * Diarrhea ([place]) in this encounter The following attachments cannot be sent through Care Everywhere. * Pancreatitis ([place]) in this encounter* Instructions* Laura Meyer, RN - 08/25/2019 Patient Instructions: Activity: activity as tolerated Diet: encourage fluids GI specialist in 2 weeks. * Attachments The following attachments cannot be sent through Care Everywhere. * Pancreatitis: Chronic Diet ([place]) * Pancreatitis ([place]) documented in this encounter Assessments Diagnosis Epigastric [...] FoundDocuments on File Type Date Recorded Patient Turning Sander Operator Expl anation Advance Directives and Living Will Power of Leathersmith Latest Code Status on File Code Status Date Activated Date Inactivated Comments Full Code 08/22/2019 4:27 PM Documents on File Type Date Recorded Patient Turning Sander Operator Expl anation Advance Directives and Livin g [...] Documents on File Type Date Recorded Patient Turning Sander Operator Expl anation ACP-Advance Directive ACP-Power of Leathersmith Latest Code Status on File Code Status [...] Relationship Healthcare Agent Relationshi p Communication Justino Arciniega Spouse Primary Decision Maker History of Present [...] toradol is contraindicated. Called Dr. Hughes back, va underwriter explained that patient is tolerating dilaudid. Dr. Hughes ordered dose of dilaudid increased from 0.25 mg to 0.5 mg q4 hrs PRN. * Ladan Stearns RN - 08/24/2019 1:27 PM EDT Patient walking in hallway at this time. * Ladan Stearns RN - 08/24/2019 9:14 AM EDT Choke Setter to patients bedside at this time to reassess pain. Patient sitting in chair, appears restless and is tearful. Patient states Dilaudid did not help the pain, states there is nothing va underwriter can do as she deals with [...] Scheduled for EGD in September with her Manager Army at [facility] Discharge Planning -- Home when stable Carley Camara APRN, WATERSHED ENGINEER-C Associated attestation - Rajeev Cantor MD - 08/24/2019 5:30 PM EDT Attending Supervising Physician s Attestation Statement I have personally evaluated and examined the patient [id number] in conjunction with the nurse practitioner. I [...] Examined and Reviewed plan of care with WATERSHED ENGINEER. Directions and discussion about care and plans. [...] [place] RN - 08/23/2019 4:40 PM EDT Choke Setter contacted Dr. Cantor regarding update that patient [...] he would not give order for Benedryl. Choke Setter let nurse know that if patient's c/o ithcing and redness doesn't improve in an hour, that va underwriter will be calling back to update physician. * Brie Birmingham RN - 08/23/2019 3:20 PM EDT Choke Setter called into patient's room d/t patient c/o itching, feeling hot , and slight redness noted to BUE and face. Choke Setter contacted Dr. Cantor office and left message with his nurse, asking for IV Benedryl and d/c of Lovenox. Patient thinks she may have had reaction to Lovenox in the past, and thatis the only other med she is currently taking here other than Dilaudid. Choke Setter did once again verify that patient usually [...] medically stable. Patient lives with her in [place]. She uses no DME and has no outside services currently in place. Patient provides for her own transportation needs and manages her medications. She is independent with her ADL's. [facility]CP is [facility]. [facility] and denies needing further assistance with the cost of her medications. Discharge plan is home with no additional services at this time. Patient is a 'Full Code' status. She has no healthcare directives and voices that she is not interested in pursuing these documents further. [employer] to monitor and assist with discharge planning [...] [place] RN - 08/23/2019 9:05 AM EDT Choke Setter made FLEXO PRESS OPERATOR aware that patient is vomiting at this time since clear liquid diet added. Choke Setter to give Zofran and place patient back [...] weight loss, but states of weight gain. [id number] Discussed need to re-zero Pt bed to verify gain. She declined education needs states she has a GI doctor and RDN at the [facility]. Reports following the guidelines they [...] 5. Fluid Accumulation-No significant fluid accumulation, 6. Wagon Winder Strength-Not measured Nutrition Risk Level: Moderate Nutrient Needs: Estimated Daily Total Kcal: 5975-0029(20-23/kg) Estimated Daily Protein (g): 65-75g(1.3-1.5g/kg) Estimated Daily [...] weight gain/23%, recommend to re-zero Pt bed Watkins Body Wt: 110 lb (49.9 kg), % Watkins Body 129% BMI Classification: BMI 25.0 - [...] Nausea or Vomiting, Patient/Family Education Contact Number: [phone] * Carley Camara APRN - FLEXO PRESS OPERATOR - 08/23/2019 7:30 AM EDT Progress Note [...] Daily Discharge Plan--later today/tomorrow Carley Camara APRN, WATERSHED ENGINEER-C Associated attestation - Rajeev Cantor MD - 08/23/2019 12:04 PM EDT Attending Supervising Physician s Attestation Statement I have personally evaluated and examined the patient [id number] in conjunction with the nurse practitioner. I [...] Examined and Reviewed plan of care with WATERSHED ENGINEER. Directions and discussion about care and plans. [...] Patient [facility]t ED in process of running a code on another patient; production control supervisor states that report will be called when able. Choke Setter unable to get ahold of staff inED to put patient in revenue accounting manager so that va underwriter can [facility]. Will try again shortly. [...] Diagnoses Alcohol-induced chronic pancreatitis Procedures UPPER EUS IN ESOPHAGOGASTRODUODENOSCOPY US SCOPE W/ADJ STRXRS Sabrina Dee MD, MPH [address] [place] [phone] Referral ID Status Reason Start Date Expiration Date V isits Requested Visits Authorized [id number] New Request 06/16/2022 07/11/2023 1 1 Specialty Diagnoses / Procedures Referred By Zia espinal Referred To Contact Endocrinology, Diabetes & Metabolism Diagnoses Osteoporosis without current pathological fracture, unspecified osteoporosis type Sabrina Dee MD, MPH [address] [place] [address] Referral ID Status Reason Start Date Expiration Date V isits Requested Visits Authorized [id number] New Request 06/16/2022 07/11/2023 1 1 Specialty Diagnoses / Procedures Referred By Contac t Referred To Contact Diagnoses Encounter for screening colonoscopy Procedures SCREENING COLONOSCOPY IN COLON CA SCRN NOT HI RSK IND Sabrina Dee MD, MPH [address] [place] [phone] Referral ID Status Reason Start Date Expiration Date V isits Requested Visits Authorized [id number] New Request 12/16/2021 01/10/2023 1 1 Specialty Diagnoses / Procedures Referred By Contac t Referred To Contact Diagnoses Recurrent acute pancreatitis History of smoking 25-50 pack years Procedures BONE DENSITY AXIAL (HIP, PELVIS, SPINE) Sabrina Dee MD, MPH [address] [place] [phone] Referral ID Status Reason Start Date Expiration Date V isits Requested Visits Authorized [id number] New Request 12/16/2021 01/10/2023 1 1 Specialty Diagnoses / Procedures Referred By Contac t Referred To Contact Diagnoses Recurrent acute pancreatitis Procedures UPPER EUS IN EGD US GUIDED TRANSMURAL INJXN/FIDUCIAL MARKER Sabrina Dee MD, MPH [address] [place] [phone] Referral ID Status Reason Start Date Expiration Date V isits Requested Visits Authorized [id number] New Request 12/16/2021 01/10/2023 1 1 Additional [...] the patient. I discussed the patient with WATERSHED ENGINEER/PA. I agree with the WATERSHED ENGINEER/PA treatment plan. I agree with the WATERSHED ENGINEER/PA plan of care. I agree with the WATERSHED ENGINEER/PA dispo as documented. 46-year-old female presents with abdominal pain. She states I have chronic pancreatitis and this feels like a flareup . States that she took her usual Phenergan and Hassell with minimal relief so came the emergency [...] She is going to follow with her hospital social worker with whom she has an appointment on [...] the original. ED PROVIDER NOTE [facility] EM[facility]GENCY DEPARTMENT NAME: Chioma Rainey AGE: 46 y.o. : 1970 VISIT DATE: 06/09/2017 CSN: [id number] PCP: Alexander Nichols MD Chief Complaint Patient [...] Phenergan suppository. She states that she took Hassell last night. Last dose of Hassell was around 9 PM last night. She [...] Procedure: EGD; Surgeon: Romain Dumont MD; Location: [facility]; Service: HYSTERECTOMY ORIF PELVIS ORTHOPEDIC [...] Yellow Clarity, Urine Cloudy (A) Clear Specific [place] 1.024 1.005 - 1.025 pH, Urine 5.0 [...] Phenergan suppositories. She has follow-up with her hospital social worker at [facility] in 2 weeks. Do not [...] Information 1. Pineda Troy MD. Specialty: Gastroenterology [address] [place] [address] [address] [address] Contact information for after-discharge care Follow-up information has not been specified. New Prescriptions No medications on file (Please note that portions of this note may have been completed with a voice recognition software. Efforts were made to correct any errors, but occasionally words are mis-transcribed.) Jose Brown PA-C 06/09/17 0968 Pt states I have pancreatitis and I am having a flare up since last night . Pt relates mid abdominal pain that shoots into the left side of her back. Pt has been taking prescribed Hassell without relief and states she has been vomiting.in this encounter I personally interviewed the patient. I personally examined the patient. I discussed the patient with WATERSHED ENGINEER/PA. I agree with the WATERSHED ENGINEER/PA treatment plan. I agree with the WATERSHED ENGINEER/PA plan of care. I agree with the WATERSHED ENGINEER/PA dispo as documented. I saw evaluate this [...] the original. ED PROVIDER NOTE [facility] MEDICAL OBSERVATION NAME: Chioma Rainey AGE: 46 y.o. : 1970 VISIT DATE: 05/14/2017 CSN: [id number] PCP: Alexander Nichols MD Chief Complaint Patient [...] Procedure: EGD; Surgeon: Romain Dumont MD; Location: [facility]; Service: HYSTERECTOMY ORIF PELVIS ORTHOPEDIC [...] Colorless, Yellow Clarity, Urine Clear Clear Specific [place] 1.006 1.005 - 1.025 pH, Urine 5.0 [...] in the left lower pelvis. Workstation ID: [id number] Procedures MDM This is a 46-year-old female [...] the original. ED PROVIDER NOTE [facility] EM[facility]GENCY DEPARTMENT NAME: Chioma Rainey AGE: 47 y.o. : 1970 VISIT DATE: 08/24/2017 CSN: [id number] PCP: Alexander Nichols MD Chief Complaint Patient [...] Procedure: EGD; Surgeon: Romain Dumont MD; Location: [facility]; Service: HYSTERECTOMY ORIF PELVIS ORTHOPEDIC [...] Yellow Clarity, Urine Hazy (A) Clear Specific [place] 1.006 1.005 - 1.025 pH, Urine 7.0 [...] probably remain. 5. Small left adrenal adenoma. MyTime/One[employer] Virtual Workstation ID: [id number] Procedures MDM 47-year-old female [...] she did vomit. She was then given IN Phenergan and a dose of Toradol. She [...] Why: follow up ER visit [address] [place] [id number] Contact information for after-discharge care Follow-up information [...] the patient. I discussed the patient with WATERSHED ENGINEER/PA. I agree with the WATERSHED ENGINEER/PA treatment plan. I agree with the WATERSHED ENGINEER/PA plan of care. I agree with the WATERSHED ENGINEER/PA dispo as documented. Formatting of this note may be different from the original. ED PROVIDER NOTE [facility] EM[facility]GENCY DEPARTMENT NAME: Chioma Rainey AGE: 47 y.o. : 1970 VISIT DATE: 03/04/2018 CSN: [id number] PCP: Alexander Nichols MD Chief Complaint Patient [...] Procedure: EGD; Surgeon: Romain Dumont MD; Location: [facility]; Service: HYSTERECTOMY ORIF PELVIS ORTHOPEDIC [...] Colorless, Yellow Clarity, Urine Clear Clear Specific [place] 1.004 (L) 1.005 - 1.025 pH, Urine [...] Condition Comment Hospitalize Attending Provider or Group: [facility] AKIL STEPHENSON [[id number]] Phone call required?: No Follow-up Information Follow-up [...] different from the original. Adonis Negro MD [facility] Hospitalists History and Physical Patient Name:Chioma Rainey MR #:[id number] :1970 Admit Date: [id number] Physicians: Alexander Nichols [...] Procedure: EGD; Surgeon: Romain Dumont MD; Location: [facility]; Service: HYSTERECTOMY ORIF PELVIS ORTHOPEDIC [...] Diagnoses Acute recurrent pancreatitis Rajeev Cantor MD [address] [place] [address], [place] [address] [facility] Reason Comments Abdominal Pain Pt [...] SPINE) Sabrina Dee MD, MPH [address] [place] [phone] Referral ID Status Reason Start Date Expiration Date V isits Requested Visits Authorized [id number] New Request 12/16/2021 01/10/2023 1 1 Specialty Diagnoses / Procedures Referred By Zia espinal Referred To Contact Diagnoses Recurrent acute pancreatitis Procedures UPPER EUS IN EGD US GUIDED TRANSMURAL INJXN/FIDUCIAL MARKER Sabrina Dee MD, MPH [address] [place] [phone] Referral ID Status Reason Start Date Expiration Date V isits Requested Visits Authorized [id number] New Request 12/16/2021 01/10/2023 1 1 Specialty Diagnoses / Procedures Referred By Zia espinal Referred To Contact Diagnoses Encounter for screening colonoscopy Procedures SCREENING COLONOSCOPY IN COLON CA SCRN NOT HI RSK IND Sabrina Dee MD, MPH [address] [place] [phone] Referral ID Status Reason Start Date Expiration Date V isits Requested Visits Authorized [id number] New Request 12/16/2021 01/10/2023 1 1 Reason Comments Follow-up 6 month follow up Specialty Diagnoses / Procedures Referred By Zia espinal Referred To Contact Diagnoses Alcohol-induced chronic pancreatitis Procedures UPPER EUS IN ESOPHAGOGASTRODUODENOSCOPY US SCOPE W/ADJ STRXRS Sabrina Dee MD, MPH [address] [place] [address] Referral ID Status Reason Start Date Expiration Date V isits Requested Visits Authorized [id number] New Request 06/16/2022 07/11/2023 1 1 Reason Comments Follow-up Specialty Diagnoses / Procedures Referred By Zia espinal Referred To Contact Diagnoses Alcohol-induced chronic pancreatitis Procedures UPPER EUS IN EGD US GUIDED TRANSMURAL INJXN/FIDUCIAL MARKER Sabrina Dee MD, MPH [address] [place] [address] Referral ID Status Reason Start Date Expiration Date V isits Requested Visits Authorized [id number] New Request 05/11/2023 06/04/2024 1 1 Referral ID Status Reason Start Date Expiration Date V isits Requested Visits Authorized [id number] New Request 12/23/2023 01/16/2025 1 1 Reason [...] with nausea vomiting. Her GI specialist at [facility] ([facility] instructed her to come to the ER [...] days Specialty Diagnoses / Procedures Referred By Contac t Referred To Contact Diagnoses Acute on chronic pancreatitis (HCC) Raji Gilliam MD [address] [place] [address] Phone: tel: fax: [facility] [address] [place] [address] Referral ID Status Reason Start Date Expiration Date Visits Re quested Visits Authorized [id number] 1 1 INFORMATION SOURCE (unrecogn ized section and content) DATE CREATED AUTHOR 03/09/[address] [facility] DATE CREATED AUTHOR AUTHOR'S ORGANIZ ATION 06/18/2022 [facility] DATE CREATED AUTHOR AUTHOR'S ORGANIZ ATION 01/20/2024 [facility] DATE CREATED AUTHOR AUTHOR'S ORGANIZ ATION 10/05/2024 [facility] DATE CREATED AUTHOR AUTHOR'S ORGANIZ ATION 10/10/2024 [facility] DATE CREATED AUTHOR AUTHOR'S ORGANIZ ATION 10/25/2024 [facility] DATE CREATED AUTHOR AUTHOR'S ORGANIZ ATION 10/26/2024 [facility] DATE CREATED AUTHOR AUTHOR'S ORGANIZ ATION 10/29/2024 [facility] DATE CREATED AUTHOR AUTHOR'S ORGANIZ ATION 11/11/2024 [facility] DATE CREATED AUTHOR AUTHOR'S ORGANIZ ATION 11/26/2024 [facility] DATE CREATED AUTHOR AUTHOR'S ORGANIZ ATION 11/27/2024 [facility] DATE CREATED AUTHOR AUTHOR'S ORGANIZ ATION 11/28/2024 [facility] DATE CREATED AUTHOR AUTHOR'S ORGANIZ ATION 12/10/2024 [facility] DATE CREATED AUTHOR AUTHOR'S ORGANIZ ATION 12/13/2024 [facility] DATE CREATED AUTHOR AUTHOR'S ORGANIZ ATION 12/19/2024 [facility] Care Teams (unrecognized sec tion and [...] Active Christa Lopez PA-C Emergency Provider Active Insurance Claims Processor Relationship Specialty Start Date End Date Pineda Troy MD [address] [place] [phone] PCP - Referring 1 Gastroenterology 09/25/[address] [facility], Other [address] [place] [address] PCP - General 11/28/19 Insurance Claims Processor Relationship Specialty Start Date End Date Pineda Troy MD [address] [place] [phone] PCP - Referring 1 Gastroenterology 09/25/[address] [facility], Other [address] [place] [address] PCP - General 11/28/19 Insurance Claims Processor Relationship Specialty Start Date End Date Pineda Troy MD [address] [place] [phone] PCP - Referring 1 Gastroenterology 09/25/[address] [facility], Other [address] [place] [address] PCP - General 11/28/19 Insurance Claims Processor Relationship Specialty Start Date End Date Pineda Troy MD [address] [place] [phone] PCP - Referring 1 Gastroenterology 09/25/[address] [facility], Other [address] [place] [facility] [place] [address] PCP - General 11/28/19 Team Status: Inactive Member Role Status Dates NON STAFF Primary Care Provider Active Agustin Llanes MD Emergency Provider Active Insurance Claims Processor Relationship Specialty Start Date End Date Pineda Troy MD [address] [place] [phone] PCP - Referring 1 Gastroenterology 09/25/[address] [facility], Other [address] [place] [place] [address] PCP - General 11/28/19 Insurance Claims Processor Relationship Specialty Start Date End Date Pineda Troy MD [address] [place] [address] PCP - Referring 1 Gastroenterology 09/25/[address] [facility], Other [address] [place] [place] [address] PCP - General 11/28/19 Team Status: Inactive [...] April 18, 2023 End: April 18, 2023 Insurance Claims Processor Relationship Specialty Start Date End Date Pineda Troy MD [address] [place] [phone] PCP - Referring 1 Gastroenterology 09/25/[address] [facility], Other [address] [place] [address] PCP - General 11/28/19 Insurance Claims Processor Relationship Specialty Start Date End Date Pineda Troy MD PCP - Referring 1 Gastroenterology 09/25/[address] [facility], Other [address] [place] [facility] [place] [address] PCP - General 11/28/19 Insurance Claims Processor Relationship Specialty Start Date End Date Pineda Troy MD PCP - Referring 1 Gastroenterology 09/25/[address] [facility], Other [address] [place] [address] PCP - General 11/28/19 Insurance Claims Processor Relationship Specialty Start Date End Date [facility], [facility] [address] [facility] [address] [facility] [place] [place] PCP - General Family Medicine 03/26/23 Insurance Claims Processor Relationship Specialty Start Date End Date Services, [facility] [address] [facility] [place] [place] PCP - General Family Medicine 03/26/23 Insurance Claims Processor Relationship Specialty Start Date End Date [facility], [facility] [address] [facility] [place] [place] PCP - General Family Medicine 03/26/23 [...] October 28, 2024 End: October 28, 2024 Insurance Claims Processor Relationship Specialty Start Date End Date Cynthia Galindo [address] [place] [address] PCP - General Family Medicine 07/30/11 Insurance Claims Processor Relationship Specialty Start Date End Date Cynthia Galindo [address] [place] [address] PCP - General Family Medicine 07/30/11 Goals [...] Refills Last Filled Start Date End Date ondansetron (ZOFRAN-ODT) 4 MG disintegrating tablet Take [...] over 61 Minutes, ONCE, On Thu09/29/23 at 1929, For 1 dose, For adult patients weighing [...] minutes - Dilute with 10 mL NS 1920 (Given - Provid er: Danay Knutson [...] IntraVENous, ONCE, 1 dose, On Thu09/20/24 at 191, If oral and IV narcotics ordered, use [...] NS 1001 (Given - Provider: Jazzy Ochoa RN)195 (Given - Provider: Monik Barajas RN) 0744 (Given - Provider: Colin Corrigan RN)2007 (Given - Provider: Michelle Centeno RN) 0857 (Given - Provider: Maggie Sullivan RN)2100 (Due) LORazepam (ATIVAN) injection 1 mg [...] Jazzy Ochoa RN - Reason: IV Fluid Infusing)1953 (Given - Provider: Monik Barajas RN) 0745 (Given - Provider: Colin Corrigan, RN)2134 (Not Given - Provider: Michelle Centeno RN [...] lock IV 0708 (Stopped - Provider: Monik Barajas RN)0708 (New Bag - Provider: Jazzy Ochoa RN)1653 (New Bag - Provider: Jazzy Ochoa RN) 0101 (Rate/Dose Verify - Provider: Monik Barajas RN) 0.9 % sodium chloride infusion () IntraVENous, at 100 mL/hr, CONTINUOUS, Starting on Thu11/07/24 at 2330, For 24 hours 0235 (New Bag - Provider: Monik Barajas RN)1539 (New Bag - Provider: Colin Corrigan, RN) PRN Medication Order 11/07/2024 11/08/2024 11/09/2024 [...] Oral, EVERY 6 HOURS PRN, Starting on Thu11/06/24 [...] PRN, Starting on Thu11/06/24 at 2157, Until 11/09/24 at 0634, Pain Moderate (4-6) OR per [...] RN)1320 (See Alternative - Provider: Jazzy Ochoa RN)164 (See Alternative - Provider: Jazzy Ochoa RN)1952 (See Alternative - Provider: Monik Barajas RN)225 (See Alternative - Provider: Monik Barajas RN) 0217 (See Alternative - Provider: Monik Barajas RN)0745 (See Alternative - Provider: Colin Corrigan RN)1051 (See Alternative - Provider: Colin Corrigan RN)164 (See Alternative - Provider: Montse Monteiro RN)2007 (See Alternative - Provider: Michelle Centeno RN) HYDROmorphone HCl PF (DILAUDID) injection 1 mg (CANCELED) 1 mg, IntraVENous, EVERY 3 HOURS PRN, Starting on 11/06/24 at 2157, Until 11/09/24 at 0634, Pain Severe (7-10), If oral [...] Ochoa RN)1649 (Given - Provider: Jazzy Ochoa RN)195 (Given - Provider: Monik Barajas RN)2257 (Given - Provider: Monik Barajas RN) 0217 (Given - Provider: Monik Barajas RN)0745 (Given - Provider: Colin Corrigan, RN)1051 (Given - Provider: Colin Corrigan, JOSE LUIS)1646 (Given - Provider: Montse Monteiro, RN)2007 (Given - Provider: Michelle Centeno RN) magnesium sulfate 2000 mg in 50 mL IVPB premix 2,000 mg, IntraVENous, at 25 mL/hr, Administer over 2 Hours, PRN, Other, Magnesium Replacement, Starting on 11/06/24 at 2157, Mag Lab Replacement Action 1.4-1.6 [...] Lazaro Hager RN)1001 (Given - Provider: Jazzy Ochoa, JOSE LUIS)1650 (Given - Provider: Jazzy Ochoa RN)2256 (Given - Provider: Monik Barajas RN) 0745 (Given - Provider: Colin Corrigan, JOSE LUIS)1643 (Given - Provider: Montse Monteiro, RN) ondansetron (ZOFRAN-ODT) disintegrating tablet 4 mg(Linked Group 3) 4 mg, Oral, EVERY 8 HOURS PRN, Starting on 11/06/24 at 2157, Until Discontinued, Nausea, Vomiting 0301 (See Alternative - Provider: Lazaro Hager, JOSE LUIS)1001 (See Alternative - Provider: Jazzy Ochoa, JOSE LUIS)1650 (See Alternative - Provider: Jazzy Ochoa RN)2256 (See Alternative - Provider: Monik Barajas, RN) 0745 (See Alternative - Provider: Colin Corrigan, JOSE LUIS)1643 (See Alternative - Provider: Montse Monteiro RN) polyethylene glycol (GLYCOLAX) packet 17 g 17 g, Oral, DAILY PRN, Starting on 11/06/24 at 2157, Until Discontinued, Constipation, First line therapy for constipation potassium bicarb-citric acid (EFFER-K) effervescent tablet 40 mEq(Linked Group 4) 40 mEq, Oral, PRN, Starting on Thu11/06/24 at 7, Until Discontinued, Per Potassium Replacement Protocol, Administer [...] 4) 40 mEq, Oral, PRN, Starting on Thu11/06/24 at 7, Until Discontinued, Potassium Replacement, May give alternative [...] 4) 10 mEq, IntraVENous, PRN, Starting on 11/06/24 [...] Oral, EVERY 6 HOURS PRN, Starting on Thu11/06/24 [...] Oral, EVERY 8 HOURS PRN, Starting on Thu11/06/24 at 2157, Until Discontinued, Nausea, Vomiting Or ondansetron (ZOFRAN) injection 4 mgJump to med 4 mg, IntraVENous, EVERY 6 HOURS PRN, Starting on Thu11/06/24 at 2157, Until Discontinued, Nausea, Vomiting, Administer [...] med 10 mEq, IntraVENous, PRN, Starting on Thu11/06/24 [...] this informatio n is protected by the [facility] Confidentiality of Alcohol and Drug Abuse Patient Records regulations: The Federal rules restrict any use of the information to criminally investigate or prosecute any alcohol or drug abuse patient.[facility] Hospital[facility] the event this information is protected by the Federal Confidentiality of Alcohol and Drug Abuse Patient Records regulations: The Federal rules restrict any use of the information to criminally investigate or prosecute any alcohol or drug abuse patient.[facility] Hospital[facility] the event this information is protected by the Federal Confidentiality of Alcohol and Drug Abuse Patient Records regulations: The Federal rules restrict any use of the information to criminally investigate or prosecute any alcohol or drug abuse patient.[facility] FOR RECORDS PERTAINING TO PATIENTS WHO [...] BE BASED ON THE PRIMARY CLINICAL RECORDS. [facility] Alerts [facility]. provides no warranty or guarantee of the accuracy or completeness of information in this document.
[2024-12-23 13:55] LABS: Platelet Count 208 10^3/uL (150-450)
[2024-12-23 14:37] LABS: Glucose Urine UA NEGATIVE (NEGATIVE)
[2024-12-23 15:12] LABS: Cast Seen? NONE SEEN #/LPF (NONE SEEN); Crystals Seen? None Seen #/HPF (None Seen)
--- NOTE | 2024-12-23 17:55 | ECG_ITS ---
[facility] Test Date: 2024-12-23 Pat Name: CHIOMA BOUDREAUX Department: Room: - Gender: Female Tap Builder: : 1970 Requested By: 1030 Order Number: [id number] Reading MD: LALITO FRIAS M.D. Measurements Intervals Magazine Rate: 121 P: 150 DE: 130 QRS: 123 QRSD: 72 T: 123 QT: 290 QTc: 362 Interpretive Statements 1220 Rapid atrial rhythm 2730 Left posterior fascicular block 6230 Left atrial enlargement 0101 Possible arm leads reversed, check lead requested 9150 abnormal ECG Compared to ECG 09/13/2024 13:19:15 Left posterior fascicular block now present Atrial abnormality now present Sinus rhythm no longer present Electronically Signed On 12-23-2024 18:07:18 EDT by LALITO FRIAS M.D.
== END 2024-12-23 16:05 | disposition home or self-care (01) ==
PROVIDERS: Emergency Provider Emergency Medicine
DX: R10.9 Unspecified abdominal pain (principal); G89.29 Other chronic pain; F17.200 Nicotine dependence, unspecified, uncomplicated
CPT/HCPCS: 36415; 80048; 80076; 81001; 82150; 83690; 85025; 93005; 96374; 96375; 96376; 99285; J1171; J2405

== ENCOUNTER 2024-12-25 04:09 | Emergency (ER) | payer OTHER, SELFPAY ==
[2024-12-25 04:18] VITALS: BP 153/92; PULSE 116; TEMP 36.5; O2SAT 99; BMI 20.9
--- OUTSIDE RECORDS SUMMARY | 2024-12-25 04:39 | XMS_ITS | Encounter Summary ---
Author Organization [employer] Sys [employer] Address [facility]-[id number] [address] [place] [address] Care Team Providers Care Meter/Relay Technician Name Role Phone Services, [facility] Primary Care Provider Encounter Details Date Type Department Care Team (Late st Contact Info) Description 05/29/2023 Telephone [facility] [address] [place] [address] Orlando Al MD [address] [place], [place] [phone] Social History Tobacco Use Types Packs/Day Years [...] on filedocumented in this encounter Care Teams Meter/Relay Technician Relationship Specialty Start Date End Date [facility], [facility] [address] [place], [place] PCP - General Family Medicine 05/31/24 documented as of this encounter
--- OUTSIDE RECORDS SUMMARY | 2024-12-25 04:40 | XMS_ITS | Encounter Summary ---
Author Organization [facility] Address [facility]-[id number] [address] [place] [address] Care Team Providers Care Customer Service Representative Teller Name Role Phone [facility] Primary Care Provider Encounter Details Date Type Department Care Team (Late st Contact Info) Description 11/20/2020 Orders Only [facility] [address] [address] Yecenia Overton, WILDLIFE POLICY PROFESSIONAL-SECURITY SALES MANAGER [address] [place] [address] Social History Tobacco Use Types Packs/Day Years [...] on filedocumented in this encounter Care Teams Customer Service Representative Teller Relationship Specialty Start Date End Date Services, [facility] [address] [place], [place] PCP - General Family Medicine 05/31/24 documented as of this encounter
--- OUTSIDE RECORDS SUMMARY | 2024-12-25 04:40 | XMS_ITS | Clinical Summary ---
Author Organization [facility] Address [address] [place] [phone] Care Team Providers Care Catering Sous Chef Name Role Phone Pineda Troy MD Unavailable [phone] [facility], Other Primary Care Provi mathew Allergies Active Allergy Reactions Criticality Noted Date Comments Fentanyl Hives High 09/12/2020 Haloperidol 06/02/2015 Panic attack Ibuprofen Hives,Swelling 10/30/2012 Morphine Hives Medium 07/15/2017 Penicillins Swelling 10/30/2012 Metoclopramide Anxiety 07/19/2016 Ketorolac Tromethamine Hives,Itching High 12/16/2021 Tramadol Hives Medium 10/23/2014 Medications Ergocalciferol 1.25 MG (72737 UT) capsule Take 1 capsule by mouth once a week. 8 capsule 05/11/2023 Active Pancreatic enzymes (Creon) 31405-[address] Particles capsule Take 3 capsules by mouth 2 times daily with meals. 180 capsule 11 12/23/2023 Active Active Problems Problem Noted Date Diagnosed Date Encounter for screening colonoscopy 11/28/2019 Overview (11/28/2019): Added automatically from request for surgery [id number] Alcohol-induced chronic pancreatitis 11/28/2019 Overview (11/28/2019): Added automatically from request for surgery [id number] Acute pancreatitis 09/25/2017 Pancreatitis 09/24/2017 Pancreatitis, chronic [...] MD CHEMISTRY ORDERABLES Final Result LAB, [facility] [address] [place] [address] from Last 3 Months or Most Recently Relevant to Health Maintenance Insurance [facility] Generic Exchange Advance Directives For more information, please contact: [phone] (7:30 AM - 6PM [facility], Thursday-Thursday) * Full Code (Latest Code [...] 9:16 PM 07/01/2015 5:31 PM Care Teams Catering Sous Chef Relationship Specialty Start Date End Date Pineda Troy MD PCP - Referring 1 Gastroenterology 09/25/17 [facility], [facility] [address] [place] [address] PCP - General 11/28/19
--- OUTSIDE RECORDS SUMMARY | 2024-12-25 04:40 | XMS_ITS | Encounter Summary ---
Author Organization [facility] Address [address] [place] [address] Care Team Providers Care Thread Dresser Name Role Phone Jemma Joseph MD Unavailable [phone] Elie Nichols MD Primary Care Provider [phone] Pineda Troy MD Unavailable [phone] [facility], Other Primary Care Provi mathew Reason for Visit * Reason Onset Date Comments Information Update 12/24/2015 Encounter Details Date Type Department Care Team (Late st Contact Info) Description 12/24/2015 Telephone Gastroenterology and Hepatology [facility] [address] [address] Irasema Bruce Information Update Social [...] currently inpatient @ . Pt cb # [phone] documented in this encounter Plan of Treatment Not on file documented as of this encounter Visit Diagnoses Not on filedocumented in this encounter Additional Health Concerns Infection Onset Date Last Indicated Resolved Time COVID-19 Suspected 11/28/2019 11/28/2019 0 4:32 AM EDT documented as of this encounter Care Teams Thread Dresser Relationship Specialty Start Date End Date Elie Nichols MD [address] [place] [address] PCP - General Internal Medicine 12/24/15 11/27/19 Pineda Troy MD [address] [place] [address] PCP - Referring 1 Gastroenterology 09/25/17 [facility], Other [address] [place] [address] PCP - General 11/28/19 Jemma Joseph MD Family Medicine 12/11/14 09/24/17 documented as of this encounter
--- OUTSIDE RECORDS SUMMARY | 2024-12-25 04:40 | XMS_ITS | Encounter Summary ---
Author Organization [facility] Address [facility]-[id number] [address] [place] [address] Care Team Providers Care Tetryl Screen Operator Name Role Phone Services, [facility] Primary Care Provider Encounter Details Date Type Department Care Team (Late st Contact Info) Description 05/22/2023 Orders Only [facility] [address] [place] [phone] External, Scanning Provider Social History Tobacco Use [...] 10:38 AM EDT) us Scanning Provider External [place] IMAGING Final Result Performing Organization Address [facility] Phone Number MANUALLY TRANSCRIBED RESULTS * X-ray chest 1 view (11/19/2022 10:37 AM EDT) Anatomical Region Laterality Modality Body, Chest N/A Computed Radiogr aphy us Scanning Provider External IMG DIAGNOSTIC IMAGIN G ORDERABLES Final Result * ECG 12 lead (11/19/2022 10:28 AM EDT) us Scanning Provider External ECG ORDERABLES Final Result Performing Organization Address [facility] Phone Number MANUALLY TRANSCRIBED RESULTS * Multiple labs (10/14/2022 10:40 AM EDT) us Scanning Provider External [place] IMAGING Final Result Performing Organization Address [facility] de Phone Number MANUALLY TRANSCRIBED RESULTS * Multiple labs (08/27/2022 10:41 AM EDT) us Scanning Provider External [place] IMAGING Final Result Performing Organization Address [facility] de Phone Number MANUALLY TRANSCRIBED RESULTS * [...] ECG ORDERABLES Final Result Performing Organization Address City/[facility] Co de Phone Number MANUALLY TRANSCRIBED RESULTS documented in this encounter Visit Diagnoses Not on filedocumented in this encounter Care Teams Tetryl Screen Operator Relationship Specialty Start Date End Date Services, [facility] [address] [place], [place] PCP - General Family Medicine 05/31/24 documented as of this encounter
--- OUTSIDE RECORDS SUMMARY | 2024-12-25 04:40 | XMS_ITS | Clinical Summary ---
Author Organization [facility] Address [address], [address] [place] [address] Care Team Providers Care Skill Training Program Coordinator Name Role Phone Unavailable Primary Care Provider [...] 11/09/2024 10:24 AM EDT Hospital [facility] [address] [place], [place] [id number] Konstantin Salazar MD Acute pancreatitis, unspecified complication status, unspecified pancreatitis type (Primary Dx) Discharge Disposition: Left Against Medical Advice/Discontinuat ion of Care 11/06/2024 Travel 09/27/2024 10:41 AM EDT - 09/27/2024 2:09 PM EDT Emergency [facility] Emergency Department [address] [place] [address] Saida Augustine MD Abdominal pain, epigastric (Primary [...] any time in the past 12 m [place], were you homeless or living in a jail (including now)? No 11/06/2024 AUDIT-C Answer Date [...] things needed for daily living? No 11/06/2024 [facility] Utilities Answer Date Recorded In the past 12 months has th e [employer], gas, oil, or water company threatened to [...] 2014 FIT/FOBT: Average risk 2014 Fecal-DNA (Cologuard): [place] ge risk 2014 Sigmoidoscopy/CT colonography 2014 Pneumococcal [...] - 145 mmol/L 11/09/2024 6:00 AM EDT [facility] Potassium 3.7 3.7 - 5.3 mmol/L 11/09/2024 6:00 AM EDT [facility] Chloride 107 98 - 107 mmol/L 11/09/2024 6:00 AM [facility] CO2 22 20 - 31 mmol/L 11/09/2024 6:00 AM [facility] Anion Gap 12 9 - 16 mmol/L 11/09/2024 6:00 AM [facility] Glucose 98 74 - 99 mg/dL 11/09/2024 6:00 AM [facility] BUN 3(L) 6 - 20 mg/dL 11/09/2024 6:00 AM [facility] Creatinine 0.6 0.50 - 0.90 mg/dL 11/09/2024 6:00 AM [facility] Est, Glom Filt Rate >90 >60 mL/min/1.7 3m2 11/09/2024 6:00 AM [facility] Comment: These results are not intended [...] 5(L) 9 - 20 11/09/2024 6:00 AM [facility] Calcium 8.9 8.6 - 10.4 mg/dL 11/09/2024 6:00 AM [facility] Total Protein 5.6(L) 6.6 - 8.7 g/dL 11/09/2024 6:00 AM [facility] Albumin 3.5 3.5 - 5.2 g/dL 11/09/2024 6:00 AM [facility] Albumin/Globulin Ratio 1.7 1.0 - 2.5 11/09/2024 6:00 AM [facility] Total Bilirubin 0.2 0.00 - 1.20 mg/dL 11/09/2024 6:00 AM [facility] Alkaline Phosphatase 186(H) 35 - 104 U/L 11/09/2024 6:00 AM EDT [facility] ALT 79(H) 10 - 35 U/L 11/09/2024 6:00 AM T [facility] AST 62(H) 10 - 35 U/L 11/09/2024 6:00 AM [facility] BLOOD SPECIMEN / Unknown 11/09/2024 6:00 AM EDT 11/09/2024 6:18 AM EDT us Konstantin Salazar MD CHEMISTRY ORDERABLES Nichol gamboa Result [facility] [address] [phone] * (ABNORMAL) CBC auto differential (11/09/2024 6:00 AM EDT) Only the most recent of5 resultswithin the time period is included. WBC 6.5 3.5 - 11.3 k/uL 11/09/2024 6:00 AM [facility] RBC 3.59(L) 3.95 - 5.11 m/uL 11/09/2024 6:00 AM [facility] Hemoglobin 11.9 11.9 - 15.1 g/dL 11/09/2024 6:00 AM [facility] Hematocrit 35.1(L) 36.3 - 47.1 % 11/09/2024 6:00 AM [facility] MCV 97.8 82.6 - 102.9 fL 11/09/2024 6:00 AM [facility] MCH 33.1 25.2 - 33.5 pg 11/09/2024 6:00 AM [facility] MCHC 33.9 28.4 - 34.8 g/dL 11/09/2024 6:00 AM [facility] RDW 12.3 11.8 - 14.4 % 11/09/2024 6:00 AM [facility] Platelets 144 138 - 453 k/uL 11/09/2024 6:00 AM [facility] MPV 9.8 8.1 - 13.5 fL 11/09/2024 6:00 AM [facility] NRBC Automated 0.0 0.0 per 100 WBC 11/09/2024 6:00 AM [facility] Neutrophils % 59 36 - 65 % 11/09/2024 6:00 AM [facility] Lymphocytes % 22(L) 24 - 43 % 11/09/2024 6:00 AM [facility] Monocytes % 15(H) 3 - 12 % 11/09/2024 6:00 AM [facility] Eosinophils % 3 1 - 4 % 11/09/2024 6:00 AM [facility] Basophils % 1 0 - 2 % 11/09/2024 6:00 AM [facility] Immature Granulocytes % 0 0 % 11/09/2024 6:00 AM [facility] Neutrophils Absolute 3.84 1.50 - 8.10 k/uL 11/09/2024 6:00 AM [facility] Lymphocytes Absolute 1.43 1.10 - 3.70 k/uL 11/09/2024 6:00 AM [facility] Monocytes Absolute 0.99 0.10 - 1.20 k/uL 11/09/2024 6:00 AM [facility] Eosinophils Absolute 0.17 0.00 - 0.44 k/uL 11/09/2024 6:00 AM [facility] Basophils Absolute 0.04 0.00 - 0.20 k/uL 11/09/2024 6:00 AM [facility] Immature Granulocytes Absolute <0.03 0.00 - 0.30 k/uL 11/09/2024 6:00 AM [facility] 11/09/2024 6:00 AM EDT 11/09/2024 6:18 AM EDT us Konstantin Salazar MD HEMATOLOGY ORDERABLES Fin al Result Performing Organization Address City/[facility]/ZIP Co de Phone Number [facility] [address] [phone] * Lipase (11/09/2024 6:00 AM EDT) Only the most recent of5 resultswithin the time period is included. Lipase 19 13 - 60 U/L 11/09/2024 6:00 AM EDT [facility] Blood BLOOD SPECIMEN / Unknown 11/09/2024 6:00 AM EDT 11/09/2024 6:18 AM EDT us Konstantin Salazar MD CHEMISTRY ORDERABLES Nichol l Result Performing Organization Address [facility] Co de Phone Number [facility] [address] [phone] * MRI ABDOMEN W WO CONTRAST MRCP [...] 5. Prominent duodenal diverticula. us Carley Anne VOICE INTERCEPT TECHNICIAN - FOURDRINIER MACHINE OPERATOR IMG MRI ORDER DARIO Final Result * EKG Rhythm Strip (11/07/2024 6:00 AM EDT) Only the most recent of2 resultswithin the time period is included. 11/07/2024 6:00 AM EDT Narrative [facility] - 11/07/2024 6:18 AM EDT us Unknown Provider Result ECG ORDERABLES Final Re sult [facility] [address] [phone] * EKG 12 lead (11/06/2024 10:02 PM EDT) Ventricular Rate 78 BPM [facility] Atrial Rate [address] [facility] P-R Interval 136 ms [facility] QRS Duration 74 ms [facility] Q-T Interval 356 ms [facility] QTc Calculation (Bazett) [address] [facility] P Ute [address] [facility] R Ute [address] [facility] T Ute 40 degrees [facility] 11/06/2024 10:[address] [facility] - 11/08/2024 10:43 AM EDT Normal [...] - 145 mmol/L 11/06/2024 7:34 PM EDT [facility] Potassium 3.7 3.7 - 5.3 mmol/L 11/06/2024 7:34 PM [facility] Chloride 104 98 - 107 mmol/L 11/06/2024 7:34 PM [facility] CO2 24 20 - 31 mmol/L 11/06/2024 7:34 PM [facility] Anion Gap 12 9 - 16 mmol/L 11/06/2024 7:34 PM [facility] Glucose 97 74 - 99 mg/dL 11/06/2024 7:34 PM [facility] BUN 7 6 - 20 mg/dL 11/06/2024 7:34 PM [facility] Creatinine 0.8 0.50 - 0.90 mg/dL 11/06/2024 7:34 PM [facility] Est, Glom Filt Rate 84 >60 mL/min/1.7 3m2 11/06/2024 7:34 PM [facility] Comment: These results are not intended [...] 9 - 20 11/06/2024 7:34 PM EDT [facility] Calcium 10.4 8.6 - 10.4 mg/dL 11/06/2024 7:34 PM EDT [facility] Total Protein 7.3 6.6 - 8.7 g/dL 11/06/2024 7:34 PM EDT [facility] Albumin 4.4 3.5 - 5.2 g/dL 11/06/2024 7:34 PM EDT [facility] Albumin/Globulin Ratio 1.5 1.0 - 2.5 11/06/2024 7:34 PM EDT [facility] Total Bilirubin <0.2 0.00 - 1.20 mg/dL 11/06/2024 7:34 PM EDT [facility] Alkaline Phosphatase 145(H) 35 - 104 U/L 11/06/2024 7:34 PM EDT [facility] ALT 13 10 - 35 U/L 11/06/2024 7:34 PM EDT [facility] AST 26 10 - 35 U/L 11/06/2024 7:34 PM EDT [facility] Blood BLOOD SPECIMEN / Unknown 11/06/2024 7:34 PM EDT 11/06/2024 7:41 PM EDT David Malloy II, PA-C CHEMISTRY ORDERABLES Nichol l Result [facility] [address] [phone] * Lactic Acid (09/27/2024 11:50 AM EDT) Lactic Acid 1.0 0.5 - 2.2 mmol/L 09/27/2024 11:50 AM EDT [facility] 09/27/2024 11:5 0 AM EDT 09/27/2024 12:00 PM EDT Saida Augustine MD CHEMISTRY ORDERABLES Final Res ult [facility] [address] [place] [address], [facility] [phone] from Last 3 Months Insurance [employer] Advance Directives * Full Code (Latest Code Status on File) Date Activated Date Inactivated Comments 11/06/2024 9:58 PM 11/09/2024 12:30 PM * Full Code Date Activated Date Inactivated Comments 08/22/2019 4:27 PM 08/25/2019 12:21 PM Healthcare Agents on File Name Relationship [facility] Justino Demian Spouse Primary Decision Maker
--- OUTSIDE RECORDS SUMMARY | 2024-12-25 04:40 | XMS_ITS | Encounter Summary ---
Author Organization [facility] Address [address] [place] [address] Care Team Providers Care Hvac Controls Technician Name Role Phone Jemma Joseph MD Unavailable [phone] Elie Nichols MD Primary Care Provider [phone] Pineda Fernandez MD Unavailable [phone] [facility], Other Primary Care Provi mathew Reason for Referral * Radiology (Routine) - Closed Specialty Diagnoses / Procedures Referred By Zia espinal Referred To Contact Diagnoses Alcohol-induced chronic pancreatitis Procedures CASE REQUEST - ENDOSCOPY Pineda Fernandez MD Phone: tel: fax: Referral ID Status Reason Start Date Expiration Date Visits Re quested Visits Authorized [id number] Closed 04/07/2016 05/02/2017 1 1 Reason for Visit * Reason Onset Date Comments Condition Update 03/31/2016 Encounter Details Date Type Department Care Team (Late st Contact Info) Description 03/31/[address] [facility] [address] [address] Minoo Parham Condition Update Social [...] call from scheduling. I spoke with pt's ([phone]- Magdy Nolan) who states that pt had [...] is requesting nurse/md call Bernice goldman t [phone]. If she doesn't answer please leave a message. documented in this encounter Plan of Treatment Not on file documented as of this encounter Visit Diagnoses Diagnosis Alcohol-induced chronic pancreatitis- Primary Chronic pancreatitis documented in this encounter Additional Health Concerns Infection Onset Date Last Indicated Resolved Time COVID-19 Suspected 11/28/2019 11/28/2019 0 4:32 AM EDT documented as of this encounter Care Teams Hvac Controls Technician Relationship Specialty Start Date End Date Elie Nichols MD [address] [place] [address] PCP - General Internal Medicine 12/24/15 11/27/19 Pineda Fernandez MD [address] [place] [address] PCP - Referring 1 Gastroenterology 09/25/17 [facility], Other [address] [place] [address] PCP - General 11/28/19 Jemma Joseph MD Family Medicine 12/11/14 09/24/17 documented as of this encounter
--- OUTSIDE RECORDS SUMMARY | 2024-12-25 04:40 | XMS_ITS | Encounter Summary ---
Author Organization [facility] [employer] enter Address [address] [place] [address] Care Team Providers Care Contracting Executive Name Role Phone Pineda Troy MD Unavailable [phone] [facility], Other Primary Care Provi mathew Reason for Visit * Reason Onset Date Comments Other 03/27/2020 Encounter Details Date Type Department Care Team (Late st Contact Info) Description 03/27/2020 Telephone Gastroenterology and Hepatology [facility] [address] [place] [address] [place] [address] Maggie Abreu Other Social History [...] [facility] based on encounter note 03/26/2020. [facility] 6 [facility] called to initiate transfer to [facility] (patient is established). [place] will call the [facility] transfer center and get back with us. Patient is currently admitted * Telephone Encounter - Maggie Abreu - 03/27/2020 11:08 AM EST Provider: Dr. Dee Subject of call: Admitted up-date request Reason for call: Pt spouse David called advised pt went to ER 03/26/20 [facility] for chronic pancreatis. Pt had blood work , CT scan and urine test. Hospital advised it could possibly be agall stone, but sure pt is having a blockage in the pancreas. [facility] wouldn't admit due to they don't specialize in gastroenterology. Pt spouse requesting a call to have pt admitting status to [facility]. Transferred pt to direct admit staff. Preferred call back time: [phone] documented in this encounter Plan of Treatment Not on file documented as of this encounter Visit Diagnoses Not on filedocumented in this encounter Care Teams Contracting Executive Relationship Specialty Start Date End Date Pineda Troy MD PCP - Referring 1 Gastroenterology 09/25/17 [facility], Other [address] [place] [address] PCP - General 11/28/19 documented as of this encounter
--- OUTSIDE RECORDS SUMMARY | 2024-12-25 04:40 | XMS_ITS | Clinical Summary ---
Author Organization [employer] Address [id number] [address] [place] [address] Care Team Providers [employer] Installer Name Role Phone Services, [facility] Primary Care Provider Allergies Active Allergy Reactions [...] mouth nightly. 15 tablet 15 08/27/19 Active qvfnoe-kdbpflca-hk ylase (CREON) 12,000-38,000 -60,000 unit capsule,delayed release(DR/EC) [...] EDT - 12/08/2024 10:57 PM EDT Emergency [facility] - Emergency [address] [place] [address] Rudy Bautista MD Chronic abdominal pain (Primary Dx); Nausea and vomiting, unspecified vomiting type Discharge Disposition: Home 12/08/2024 Travel 10/26/2024 7:16 PM EDT - 10/26/2024 8:07 PM EDT Emergency [facility] - Emergency [address] [place] [address] Aydin Wilson MD Chronic abdominal pain (Primary Dx) Discharge Disposition: Home 10/26/2024 Travel 10/11/2024 5:18 AM EDT - 10/11/2024 8:12 AM EDT Emergency [facility] - Emergency [address] [place] [address] Barry Ashford DO Chronic abdominal pain (Primary Dx); Chronic pancreatitis, unspecified pancreatitis type ([facility]) Discharge Disposition: Home 10/11/2024 Travel from Last [...] w/ Reflex (12/08/2024 8:38 PM EDT) Pathologist [facility] LACTATE W/REFLEX 1.4 0.4 - 2.0 mmol/L 12/08/2024 9:04 PM EDT [facility] Blood Venous blood / Unknown 12/08/2024 8:38 PM EDT 12/08/2024 8:43 PM EDT Narrative [facility] - 12/08/2024 9:04 PM EDT Result did not trigger repeat Lactate, re-order if needed. Marya CARDENAS LAB BLOOD ORDERABLES Final Result [facility] [address] [place] [address], [place] * (ABNORMAL) CBC auto differential (12/08/2024 8:38 PM EDT) Only the most recent of2 resultswithin the time period is included. Pathologist [facility] WBC 11.6(H) 4 - 11 x10E9/L 12/08/2024 8:55 PM EDT [facility] RBC Count 4.75 3.8 - 5.2 X10E12/L 12/08/2024 8:55 PM EDT [facility] Hemoglobin 15.4 11.7 - 15.5 g/dL 12/08/2024 8:55 PM EDT [facility] Hematocrit 44.9 35 - 47 % 12/08/2024 8:55 PM EDT [facility] MCV 95 80 - 100 fL 12/08/2024 8:55 PM EDT [facility] MCH 32.4 27 - 34 pg 12/08/2024 8:55 PM EDT [facility] MCHC 34.3 32 - 36 g/dL 12/08/2024 8:55 PM EDT [facility] RDW 13.1 11.5 - 15 % 12/08/2024 8:55 PM EDT [facility] Platelet Count 404 150 - 450 X10E9/L 12/08/2024 8:55 PM EDT [facility] MPV 7.8 7 - 12 fL 12/08/2024 8:55 PM EDT [facility] Neutrophils % 62.8 % 12/08/2024 8:55 PM EDT [facility] Lymphocytes % 27.5 % 12/08/2024 8:55 PM EDT [facility] Monocytes % 8.1 % 12/08/2024 8:55 PM EDT [facility] Eosinophils % 0.6 % 12/08/2024 8:55 PM EDT [facility] Basophils % 1.0 % 12/08/2024 8:55 PM EDT [facility] Neutrophils Absolute (A) 7.3(H) 1.5 - 6.6 10*3/uL 12/08/2024 8:55 PM EDT [facility] Lymphocytes Absolute 3.2 1.0 - 3.5 10*3/uL 12/08/2024 8:55 PM EDT [facility] Monocytes Absolute 0.9 0.0 - 0.9 10*3/uL 12/08/2024 8:55 PM EDT [facility] Eosinophils Absolute 0.1 0.0 - 0.4 10*3/uL 12/08/2024 8:55 PM EDT [facility] Basophils Absolute 0.1 0.0 - 0.2 10*3/uL 12/08/2024 8:55 PM EDT [facility] Differential Type AUTOMATED DIFFERENTIAL 12/08/2024 8:55 PM EDT [facility] Blood Venous blood / Unknown 12/08/2024 8:38 PM EDT 12/08/2024 8:43 PM EDT us Marya Cat APRNDANGELO LAB BLOOD ORDERABLES Final Result [address] [place] [address], [place] * Light Blue Top (12/08/2024 8:38 PM EDT) Extra Tube Auto Resulted 12/08/2024 10:02 PM EDT [facility] Blood Venous blood / Unknown 12/08/2024 8:38 PM EDT 12/08/2024 8:43 PM EDT us Rudy Bautista MD LAB BLOOD ORDERABLES Final R esult [address] [place] [address], [place] * Magnesium (12/08/2024 8:38 PM EDT) Only the most recent of2 resultswithin the time period is included. MAGNESIUM 2.2 1.8 - 2.6 mg/dL 12/08/2024 9:02 PM EDT [facility] Blood Venous blood / Unknown 12/08/2024 8:38 PM EDT 12/08/2024 8:43 PM EDT Marya Cat TECHNICAL SUPERVISOR-PICKING TECH LAB BLOOD ORDERABLES Final Result [address] [place] [address], [place] * (ABNORMAL) Lipase (12/08/2024 8:38 PM EDT) Only the most recent of2 resultswithin the time period is included. LIPASE 66(H) 17 - 40 U/L 12/08/2024 9:00 PM EDT [facility] Blood Venous blood / Unknown 12/08/2024 8:38 PM EDT 12/08/2024 8:43 PM EDT Marya Cat TECHNICAL SUPERVISOR-PICKING TECH LAB BLOOD ORDERABLES Final Result Performing Organization Address City/[facility]/ZIP Co de Phone Number [address] [place] [address], [place] * (ABNORMAL) Comprehensive metabolic panel (12/08/2024 8:38 PM EDT) SODIUM 138 134 - 146 mmol/L 12/08/2024 9:02 PM EDT [facility] POTASSIUM 3.8 3.5 - 5.0 mmol/L 12/08/2024 9:02 PM EDT [facility] CHLORIDE 104 98 - 109 mmol/L 12/08/2024 9:02 PM EDT [facility] CARBON DIOXIDE 21(L) 22 - 32 mmol/L 12/08/2024 9:02 PM EDT [facility] ANION GAP 13 5 - 15 mmol/L 12/08/2024 9:02 PM EDT [facility] BLOOD UREA NITROGEN 11 5 - 23 mg/dL 12/08/2024 9:02 PM EDT [facility] CREATININE 0.79 0.40 - 1.00 mg/dL 12/08/2024 9:02 PM EDT [facility] Comment:METHOD TRACEABLE TO IDMS STANDARD GLUCOSE 114(H) 65 - 99 mg/dL 12/08/2024 9:02 PM EDT [facility] CALCIUM 10.3 8.5 - 10.5 mg/dL 12/08/2024 9:02 PM EDT [facility] TOTAL PROTEIN 8.5(H) 6.0 - 8.0 g/dL 12/08/2024 9:02 PM EDT [facility] ALBUMIN 4.5 3.2 - 5.3 g/dL 12/08/2024 9:02 PM EDT [facility] ALKALINE PHOSPHATASE 156(H) 39 - 130 U/L 12/08/2024 9:02 PM EDT [facility] AST 23 <=41 U/L 12/08/2024 9:02 PM EDT [facility] ALT 21 <=31 U/L 12/08/2024 9:02 PM EDT [facility] BILIRUBIN,TOTAL 0.4 0.3 - 1.2 mg/dL 12/08/2024 9:02 PM EDT [facility] EGFR Non-Race Dependent 88 >=60 ml/min/1.7 3sq.m 12/08/2024 9:02 PM EDT [facility] Comment: eGFR not reported due to non-numeric value for Creatinine. Reported eGFR is based on the CKD-EPI 2020 equation that does not use a race coefficient. Blood Venous blood / Unknown 12/08/2024 8:38 PM EDT 12/08/2024 8:43 PM EDT us Marya Cat TECHNICAL SUPERVISOR-PICKING TECH LAB BLOOD ORDERABLES Final Result [facility] [address] [place] [address], [place] * APTT (10/11/2024 5:52 AM EDT) APTT 28 26 - 37 sec 10/11/2024 6:05 AM EDT [facility] Blood Venous blood / Unknown Venipuncture / Unknown 10/11/2024 5:52 AM EDT 10/11/2024 5:53 AM EDT us Barry Trager DO LAB BLOOD ORDERABLES Final Res ult Performing Organization Address [facility] Co de Phone Number [address] [place] [address], [place] * Protime & INR (10/11/2024 5:52 AM EDT) PROTIME 10.3 9.8 - 13.2 sec 10/11/2024 6:05 AM EDT [facility] INR 0.9 0.9 - 1.2 10/11/2024 6:05 AM EDT [facility] Blood Venous blood / Unknown Venipuncture / Unknown 10/11/2024 5:52 AM EDT 10/11/2024 5:53 AM EDT us Moji [employer] DO LAB BLOOD ORDERABLES Final Res ult Performing Organization Address [facility] de Phone Number [address] [place] [address], [place] * Ethanol (10/11/2024 5:52 AM EDT) ETHANOL <0.010 <=0.080 g/dL 10/11/2024 7:25 AM EDT [facility] Comment: This report is intended for use in clinical monitoring or management of patients. Blood Venous blood / Unknown Venipuncture / Unknown 10/11/2024 5:52 AM EDT 10/11/2024 5:53 AM EDT us Barry Trager DO LAB BLOOD ORDERABLES Final Res ult Performing Organization Address City/[facility]/ZIP Co de Phone Number [facility] [address] [place] [address], [place] * (ABNORMAL) Liver panel (10/11/2024 5:52 AM EDT) TOTAL PROTEIN 6.8 6.0 - 8.0 g/dL 10/11/2024 6:14 AM EDT [facility] ALBUMIN 3.9 3.2 - 5.3 g/dL 10/11/2024 6:14 AM EDT [facility] BILIRUBIN,TOTAL 0.2(L) 0.3 - 1.2 mg/dL 10/11/2024 6:14 AM EDT [facility] ALKALINE PHOSPHATASE 111 39 - 130 U/L 10/11/2024 6:14 AM EDT [facility] AST 22 <=41 U/L 10/11/2024 6:14 AM EDT [facility] ALT 12 <=31 U/L 10/11/2024 6:14 AM EDT [facility] BILIRUBIN,DIRECT 0.1 <=0.4 mg/dL 10/11/2024 6:14 AM EDT [facility] Blood Venous blood / Unknown Venipuncture / Unknown 10/11/2024 5:52 AM EDT 10/11/2024 5:53 AM EDT us Barry Ashford DO LAB BLOOD ORDERABLES Final Res ult Performing Organization Address City/[facility]/ZIP Co de Phone Number [facility] [address] [place] [address], [place] * Basic Metabolic Panel (10/11/2024 5:52 AM EDT) Pathologist [facility] SODIUM 136 134 - 146 mmol/L 10/11/2024 6:14 AM EDT [facility] POTASSIUM 3.9 3.5 - 5.0 mmol/L 10/11/2024 6:14 AM EDT [facility] CHLORIDE 106 98 - 109 mmol/L 10/11/2024 6:14 AM EDT [facility] CARBON DIOXIDE 25 22 - 32 mmol/L 10/11/2024 6:14 AM EDT [facility] ANION GAP 5 5 - 15 mmol/L 10/11/2024 6:14 AM EDT [facility] BLOOD UREA NITROGEN 10 5 - 23 mg/dL 10/11/2024 6:14 AM EDT [facility] CREATININE 0.80 0.40 - 1.00 mg/dL 10/11/2024 6:14 AM EDT [facility] Comment:METHOD TRACEABLE TO IDMS STANDARD GLUCOSE 98 65 - 99 mg/dL 10/11/2024 6:14 AM EDT [facility] CALCIUM 9.3 8.5 - 10.5 mg/dL 10/11/2024 6:14 AM EDT [facility] EGFR Non-Race Dependent 87 >=60 ml/min/1.7 3sq.m 10/11/2024 6:14 AM EDT [facility] Comment: eGFR not reported due to non-numeric value for Creatinine. Reported eGFR is based on the CKD-EPI 2020 equation that does not use a race coefficient. Blood Venous blood / Unknown Venipuncture / Unknown 10/11/2024 5:52 AM EDT 10/11/2024 5:53 AM EDT us Barry Ashford DO LAB BLOOD ORDERABLES Final Res ult [facility] [address] [place] [address], from Last 3 Months Insurance [facility] MEDICAID Care Teams [employer] Accessory Installer Relationship Specialty Start Date End Date Services, [facility] [address] [place], [place] PCP - General Family Medicine 05/31/24
--- OUTSIDE RECORDS SUMMARY | 2024-12-25 04:43 | XMS_ITS | CCD ---
Author Organization [facility] Care Team Providers Care Hand Endband Cutter Name Role Phone AlbertaDarrickimani Unavailable ALBERTA ALEXANDER Unavailable Unavailable [facility] KAYLEIGH, GENERIC Unavailable Unavailable [facility] KAYLEIGH, GENERIC Unavailable Unavailable RUPINDER NEGROI Unavailable Unavailable LIDARRICKWA Unavailable Unavailable MARIO MENDES Unavailable Unavailable LIDARRICKWA Unavailable Unavailable SARAH WALTON Unavailable Unavaila ble ALEXANDER NICHOLS Unavailable Unavailable KEERTHI NGUYEN Unavailable Unavailable [facility] KAYLEIGH, GENERIC Unavailable Unavailable KEERTHI NGUYEN Unavailable Unavailable LI DARRICKWA Unavailable Unavailable PHYSICIANS, [facility] Unavailable Unav ailable EUGENIA SHELTON Unavailable Unavailable PHYSICIANS, [facility] Unavailable Unav ailable Unavailable Primary Care Provider Unavailflorida Nichols Alexander Primary Care Provider [phone] Unavailable Primary Care Provider UnavailMarya Guajardo Unavailable NON STAFF Primary Care Provider UnavailDO Keaton Thompson Emergency Provider [phone] SALMA Amor Emergency Provider [phone] SALMA Lopez Emergency Provider [phone] Woodrow ALEXANDER, Pineda Espinal Unavailable [facility], Other Primary Care Provi mathew NON STAFF Primary Care Provider MD Agustin Baker Emergency Provider DR TRI HANSON Consulting Unavailable ARIC CHAUDAHRY Attending Unavailable ARIC CHAUDHARY Admitting Unavailable [facility] Primary Care Unavailable JANUSZ ., ARIC Consulting Unavailable AGUSTIN MADRIGAL Consulting Unavailable YANNI FRASER Attending Unavailable YANNI FRASER Admitting Unavailable [facility] Primary Care Unavailable HEBERT MCPHERSON Consulting Unavailable AMINATA, DR RAJEEV Chan Consulting Unavailable AMINATA, DR RAJEEV Chan Attending Unavailable AMINATA, DR RAJEEV Chan Admitting Unavailable [facility] Primary Care Unavailable JANNY ., ANKIT BOYKIN Consulting [facility] IGGY ., MONIK Attending Unavailable IGGY ., MONIK Admitting Unavailable GRECHNY ., ANKIT BOYKIN [facility] Unavailable ANNELIESE, NICK Consulting Unavailable JANUSZ ., ARIC Consulting Unavailable AGUSTIN HIGHTOWER Consulting Unavailable ROLAN EUCEDA Consulting Unavailable AMINATA, DR RAJEEV Chan Consulting Unavailable BRIANNA, DR SHARON Silveira Attending [facility] REINECK, DR SHARON Silveira Admitting [facility] Unavailable BRIANNA, DR SHARON Silveira Consulting [facility] HANS ., NAT Consulting Unavailable HANS ., NAT Consulting Unavailable PAY ., DR MACEDO Attending Unavailable PAY ., DR MACEDO Admitting Unavailable [facility] Primary Care Unavailable ANNELIESE, NICK Consulting Unavailable ANNELIESE, NICK Attending Unavailable ANNELIESE, NICK Admitting Unavailable [facility] Primary Care Unavailable MILADIS BARRERA Consulting Unavailable JANUSZ ., ARIC Attending Unavailable JANUSZ ., ARIC Admitting Unavailable JANUSZ ., ARIC Consulting Unavailable [facility] Primary Care Unavailable ION KRUSE Consulting Unavailable YANIN FRASER Attending Unavailable YANNI FRASER Admitting Unavailable JANNY ., ANKIT BOYKIN Consulting [facility] Unavailable LYNNE PERDOMO Consulting Unavailable JANUSZ ., ARIC Attending Unavailable JANUSZ ., ARIC Admitting Unavailable [facility] Primary Care Unavailable JANUSZ ., ARIC Consulting Unavailable DIAB ., ELENITA Consulting Unavailable DIAB ., ELENITA Attending Unavailable DIAB ., ELENITA Admitting Unavailable [facility] Primary Care Unavailable PAY ., DR MACEDO Consulting Unavailable PAY ., DR MACEDO Attending Unavailable PAY ., DR MACEDO Admitting Unavailable [facility] Primary Care Unavailable ANNELIESE, NICK Consulting Unavailable ANNELIESE, NICK Attending Unavailable ANNELIESE, NICK Admitting Unavailable [facility] Primary Care Unavailable AGUSTIN HIGHTOWER Unavailable DR RAJEEV KELLOGG Consulting Unavailable TANVIR Herron, DR GRANT Attending Unavailable TANVIR ., DR GRANT Admitting Unavailable [facility] Primary Care Unavailable TANVIR Herron, DR GRANT Consulting Unavailable NON STAFF Primary Care Provider Unavailabl e Saffle, ART SALES CONSULTANT Diomedes Serrano Emergency Provider NON STAFF Primary Care Provider Unavailabl e Saffle, ART SALES CONSULTANTZach Serrano Emergency Provider [phone] DO Rivera Lopez Emergency Provider [phone] MD Darrel Kellogg Emergency Provider Pineda Troy MD Unavailable [facility], Other Primary Care Provi mathew Pineda Troy MD T Unavailable STEVE, SOMASHEKAR G Attending Unavailabl e [facility], OTHER Primary Care Un available SELF, SELF Referring Unavailable STEVE SOMASHEKAR G Attending Unavailabl e STEVE, SOMASHEKAR G Referring Unavailabl e [facility], OTHER Primary Care Un available STEVE, SOMASHEKAR G Referring Unavailabl e [facility], OTHER Primary Care Un available STEVE, SOMASHEKAR G Attending Unavailabl e Unavailable Primary Care Provider Unavailabl e [facility], Replaced By [facility] Primary Care Provider Darrel Ferrer Attending Unavailable [...] Attending Unavailable Geno Martin Admitting Unavailable SERVICES, [facility] Unava ilable STEPHANIE MAHMOOD Attending Unavailable SERVICES, [facility] Unava ilable TABITHA NEWELL Attending Unavailable SERVICES, [facility] Unava ilable AGUSTIN MICHAEL Attending Unavailab le SERVICES, [facility] Unava ilable VIVIAN TRINH Attending Unavailable SERVICES, [facility] Unava ilable EMILIE JARVIS Attending Unavailable SERVICES, [facility] Unava ilable TABITHA NEWELL Attending Unavailable SERVICES, [facility] Unava ilable JYOTHI TRINH Attending Unavailable SERVICES, [facility] Unava ilable TABITHA NEWELL Attending Unavailable SERVICES, [facility] Unava ilable TABITHA NEWELL Attending Unavailable SERVICES, [facility] Unava ilable STEPHANIE MAHMOOD Attending Unavailable SERVICES, [facility] Unava ilable YANNI PARRA Attending Unavailable SERVICES, [facility] Unava ilable TABITHA NEWELL Attending Unavailable SERVICES, [facility] Unava ilable SHELBY PALMER Attending Unavailable SHI, CYNTHIA J Primary Care Unavailable LINDSEY WILLARD Attending Unavailable SELF Referring Unavailable SHI, CYNTHIA J Primary Care Unavailable LINDSEY WILLARD Referring Unavailable JOSSE ROMO Attending Unavailable LINDSEY WILLARD Attending Unavailable SITTEK, STU Referring Unavailable ROHRBACH, CYNTHIA J Primary Care Unavailable ROHRBACH, CYNTHIA J Primary Care Unavailable VALERIE EUCEDAETHI Admitting Unavailable MARIANNA JOHN Attending Unavailable Allergies Allergy Classification Reported Allergen(s) Allergy Type Date of Onset Reaction(s) Facility DOPamine Antagonists (1 source) Metoclopramide Drug [facility] 07-20-19 17 [facility] (1 source) [facility]operidol Drug All[facility] 06-02-19 [facility] NSAIDs (1 source) Ibuprofen Drug Allergy 10-31-19 13 [facility]ives, [facility] Opioid Agonists (2 sources) Morphine Drug Allergy 10-24-19 15 Hives [facility] Penicillins (antibiotic) (1 source) Penicillins Drug Allergy 10-31-19 13 Swelling [facility] Work Phone: (20 sources) haloperidol; Translations: [HALOPERIDOL] Propensity to adverse reactions to drug 06-02-19 16 [facility] (20 sources) ibuprofen; Translations: [IBUPROFEN] Propensity to adverse reactions to drug 08-22-19 12 Hives, Swelling, Anaphylaxis, Other (See Comments), Shortness Of Breath, Other: See Comments [facility] (6 sources) metoclopramide; Translations: [METOCLOPRAMIDE HCL] Propensity to adverse reactions to drug 07-01-19 17 [facility] (6 sources) penicillin g; Translations: [PENICILLIN G] Propensity to adverse reactions to drug 07-25-19 15 Anaphylaxis [facility] (20 sources) traMADol; Translations: [TRAMADOL] Propensity to adverse reactions to drug 07-25-19 15 Hives, Other: See Comments [facility] (20 sources) morphine; Translations: [MORPHINE] Drug Allergy 07-16-19 18 [facility] (17 sources) Enoxaparin; Translations: [ENOXAPARIN] Drug Allergy 08-23-19 20 Itching, Rash [place] (13 sources) Haloperidol; Translations: [HALOPERIDOL LACTATE] Drug Allergy 06-19-19 17 Swelling, Other: See Comments [place] (19 sources) Penicillins; Translations: [PENICILLINS] Propensity to adverse reactions to drug 08-22-19 12 Anaphylaxis, Swelling [place] (2 sources) Haloperidol; Translations: [Haldol] Drug Allergy 08-10-19 19 Unknown [facility] Rep[facility] (20 sources) fentaNYL; Translations: [Fentanyl] Drug Allergy 09-13-19 21 [facility] (15 sources) Ketorolac; Translations: [ketorolac] Drug Allergy 06-13-19 21 [facility] (10 sources) Ketorolac Drug Allergy 12-17-19 22 Hives, Itching [facility] (19 sources) Metoclopramide; Translations: [METOCLOPRAMIDE] Drug Allergy 07-01-19 17 Anxiety, Other: See Comments [facility] (1 source) Ibuprofen Drug Allergy 01-09-20 13 [facility] (9 sources) Ketorolac; Translations: [Toradol] Drug Allergy [facility] (1 source) Morphine Drug Allergy 08-10-19 19 [facility] (1 source) Penicillins Drug allergy (disorder) 01-09-20 13 [facility] (1 source) traMADol Drug Allergy 01-09-20 13 [facility] (3 sources) Ketorolac trometamol Propensity to adverse reactions to drug 12-17-19 22 Hives, Itching [facility] (2 sources) Penicillins Propensity to adverse reactions to drug 10-31-19 13 Swelling [facility] Work Phone: (11 sources) Penicillins Propensity to adverse reactions to drug 10-10-19 18 Anaphylaxis [facility] [employer] [facility] (11 sources) Prochlorperazine; Translations: [PROCHLORPERAZINE] Drug Allergy 03-18-19 25 Hives, Other (See Comments), Anaphylaxis [facility] (8 sources) Penicillin; Translations: [penicillin] Drug Allergy [facility] Rep[facility] (7 sources) Prochlorperazine; Translations: [Compazine] Drug Allergy [facility] (1 source) Haloperidol Drug Allergy 10-29-19 25 [facility] Rep[facility] (1 source) Ibuprofen Drug Allergy 10-29-19 25 [facility] (1 source) Morphine Drug Allergy 10-29-19 25 [facility] (1 source) Penicillins Drug allergy (disorder) 10-29-19 25 [facility] (1 source) Prochlorperazine Drug Allergy 10-29-19 25 [facility] (1 source) traMADol Drug Allergy 10-29-19 25 [facility] (3 sources) Penicillins Drug Allergy 08-22-19 12 Other: See Comments [facility] Medications Current Medications Medication Drug Class(es) [...] 30 tablet 11 12/01/2019 05/11/2023 Discontinued amylase 321119 unt / lipase 12521 unt / protease 72479 unt delayed release oral capsule (20 sources) Start: 11-02-2024 lipase-proteas e-amylase (CREON) 24,000-76,000 -120,000 unit delayed release capsule Indications: Chronic pancreatitis, unspecified pancreatitis type (HCC) , Epigastric pain , Loose stools , Exocrine pancreatic insufficiency (HCC) Take 2 caps by mouth 3 times daily with meals and 1 cap with each snack. Take 1st cap before meal starts and the 2nd cap custodial through. Max of 10 capsules per day. 300 capsule 3 11/02/2024 Active Start: 12-23-2023 take 3 capsules by m outh twice daily at mealtime Pancreatic enzymes (Creon) 41512-95[address]-610275 units Cap DR Particles capsule Take 3 capsules by mouth 2 times daily with meals. 180 capsule 11 12/23/2023 Active Start: 05-11-2023 take 3 capsules by m outh twice daily at mealtime Pancreatic enzymes (Creon) 63134-[address] Particles capsule Take 3 capsules by mouth 2 times daily with meals. 180 capsule 11 05/11/2023 Active Start: 12-16-2021 End: 05-11-2023 take 65044-05468 capsules by mouth three times daily Gbhxzq-Iycauzad-Kepvyae (Creon) 24,000-76,000 -120,000 unit capsule,delayed release(DR/EC) Discontinued [...] by mouth every week Ergocalciferol 1.25 MG (20887 UT) capsule Take 1 capsule by mouth once a week. 8 capsule 05/11/2023 Active Start: 01-28-2022 End: 03-19-2022 take 1 capsule by mouth every week ergocalciferol 1.25 MG (54434 UT) capsule Take 1 capsule by mouth [...] 40 mg/ml injection (1 source) Start: 11-06-2024 Roberta (No Known Home Meds) (1 source) Start: 10-09-2021 Roberta (No Known Home Meds) Active October 09, [...] tablet 1 09/29/2023 Active polyethylene glycol 3350 13209 mg powder for oral solution (2 sources) [...] mL/hr, Administer over 1 Hours, ONCE, On [facility] 04/07/24 at 1415, For 1 dose Start: 01-07-2024 End: 01-07-2024 1,000 mL (18.4 mL/kg), IntraVENous, at 983.6 mL/hr, Administer over 61 Minutes, ONCE, On [facility] 01/07/24 at 1445, For 1 dose, [...] fracture] Chronic Other aftercare (1 source) 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 12-13-2024 CNOV Office Visit (GGENMN ) ----- CHIOMA RAINEY ([id number]) 1970 F Date Time Provider Department 12/13/24 10:00 AM LINDSEY WILLARD GGKATELINMN During your visit today, we recorded the following information about you: Pulse Blood pressure Weight Height 87/minute 144/80 54 kg 1.575 m Lindsey Willard ALEA.CABLE INSTALLER REPAIRER HELPER 12/13/2024 1:10 PM Signed NAME: Chioma Rainey [...] use and chronic pancreatitis who presented to [facility] Main ED on 12/09 with progressively worsening epigastric pain and N/V x3 days. Was seen in emergency department 12/[address] scan with chronic findings but also a mucosal pancreatic wall thickening. She follows with [facility] GI outpatient and underwent a celiac [...] entire pancreas. - Celiac plexus block performed. [facility] 11/02/2024 IMPRESSION AND PLAN Chioma Cuellar (more content not included)... Normal [facility] CNDSon 12-11-2024 CNDS HNO ID: [id number] Author: ALEXUS YOUNGBLOOD PA-C Service: Hospital Medicine Author Type: Physician Rubber Cutting Machine Tender Type: Discharge Summary Filed: 12/11/2024 09:45 Note Text: ----- Attestation signed by Marianna John MD at 12/11/2024 3:57 PM [facility] STAFF PHYSICIAN NOTE OF PERSONAL INVOLVEMENT IN CARE Patient seen and evaluated with the JOSE LUIS. I have reviewed the discharge summary obtained and documented by the physician switchboard operator assistant and I personally participated in the garcia [...] use and chronic pancreatitis who presented to [facility] Main ED on 12/09 with progressively worsening epigastric pain and N/V x3 days. Was seen in emergency department 12/[address] scan with chronic findings but also a mucosal pancreatic wall thickening. She follows with [facility] GI outpatient and underwent a celiac [...] John MD Primary Service: GIM 2 Physician Rubber Cutting Machine Tender: Alexus Youngblood PA-C PATIENT CONDITION AT DISCHARGE: [...] SITE CAR (more content not included)... Normal [facility] CBC panel Auto (Bld)on 12-10 Erythrocyte distribution width (RBC) [Ratio] 12.2 % Normal 11.5-15.0 [facility] Comment on above: Order Comment: Speci men Type: BLOOD SPECIMENOrdering Facility: [facility] Address: [address] [place] [address] Performed By: #### 5 8410-2 ####[facility] [id number] [place] [address] [place] Hematocrit (Bld) [Volume fraction] 38.2 % Normal 36.0-46.0 [facility] Comment on above: Order Comment: Speci men Type: BLOOD SPECIMENOrdering Facility: [facility] Address: [address] [place] [address] Performed By: #### 5 8410-2 ####[facility] [id number] [place] [address] [place] Hemoglobin (Bld) [Mass/Vol] 13.0 g/dL Normal 11.5-15.5 [facility] Comment on above: Order Comment: Speci men Type: BLOOD SPECIMENOrdering Facility: [facility] Address: [address] [place] [address] Performed By: #### 5 8410-2 ####[facility] [id number] [place] [address] [place] MCH (RBC) [Entitic mass] 32.8 pg Normal 26.0-34.0 [facility] Comment on above: Order Comment: Speci men Type: BLOOD SPECIMENOrdering Facility: [facility] Address: [address] [place] [address] Performed By: #### 5 8410-2 ####[facility] [id number] [place] [address] [place] MCHC (RBC) [Mass/Vol] 34.0 g/dL Normal 30.5-36.0 [facility] Comment on above: Order Comment: Speci men Type: BLOOD SPECIMENOrdering Facility: [facility] Address: [address] [place] [address] Performed By: #### 5 8410-2 ####[facility] [id number] [place] [address] [place] MCV (RBC) [Entitic vol] 96.5 fL Normal 80.0-100.0 [facility] Comment on above: Order Comment: Speci men Type: BLOOD SPECIMENOrdering Facility: [facility] Address: [address] [place] [address] Performed By: #### 5 8410-2 ####[facility] [id number] [place] [address] [place] Nucleated RBC (Bld) [#/Vol] 10*3/uL Normal <0.01 [facility] Comment on above: Order Comment: Speci men Type: BLOOD SPECIMENOrdering Facility: [facility] Address: [address] [place] [address] Performed By: #### 5 8410-2 ####[facility] [id number] [place] [address] [place] Platelet mean volume (Bld) [Entitic vol] 9.4 fL Normal 9.0-12.7 [facility] Comment on above: Order Comment: Speci men Type: BLOOD SPECIMENOrdering Facility: [facility] Address: [address] [place] [address] Performed By: #### 5 8410-2 ####[facility]CL[facility] [id number] [place] [address] [place] Platelets (Bld) [#/Vol] 337 10*3/uL Normal 150-400 [facility] Comment on above: Order Comment: Speci men Type: BLOOD SPECIMENOrdering Facility: [facility] Address: [address] [place] [address] Performed By: #### 5 8410-2 ####[facility]CL[facility] [id number] [place] [address] [place] RBC (Bld) [#/Vol] 3.96 10*6/uL Normal 3.90-5.20 [facility] Comment on above: Order Comment: Speci men Type: BLOOD SPECIMENOrdering Facility: [facility] Address: [address] [place] [address] Performed By: #### 5 8410-2 ####[facility] [id number] [address] [address] [place] WBC (Bld) [#/Vol] 9.21 10*3/uL Normal 3.70-11.00 [facility] Comment on above: Order Comment: Speci men Type: BLOOD SPECIMENOrdering Facility: [facility] Address: [address] [place] [address] Performed By: #### 5 8410-2 ####[facility] LABCLIA [id number] [address] [address] [place] HISTORY PHYSICALon HISTORY PHYSICAL HNO ID: [id number] Author: STU REY PA-C Service: Hospital Medicine Author Type: Physician Rubber Cutting Machine Tender Type: H&P Filed: 12/10/2024 08:04 Note Text: ----- Attestation signed by Marianna John MD at 12/11/2024 3:56 PM [facility] STAFF PHYSICIAN NOTE OF PERSONAL INVOLVEMENT IN CARE Patient seen and evaluated with the PA. I have reviewed the history and physical examination obtained and documented by the physician switchboard operator assistant and I personally participated in the garcia [...] SIGNATURE: Marianna John MD ----- [facility]PARTMENT OF [facility] MEDICINE HISTORY AND PHYSICAL EXAM SERVICE DATE: 12/10/2024 SERVICE TIME: 2:34 AM Primary Care Physician: Cynthia Galindo CNP NIGHT AND WEEKEND COVERAGE: Day: Please page GIM treatment team listed under [facility] Teams. Overnight (5:00PM --> 07:30AM): For patients on H80/H81/G80/G81/ED/EDTU/E 20 please page [phone] For patients on Any Other Floor including building, J83, J1-2 please page [phone] Subjective CHIEF COMPLAINT: Epigastric pain HPI: This is a 54-year-old female with remote history of alcohol use and chronic pancreatitis who presented to [facility] Main ED on 12/09 with progressively worsening epigastric pain and N/V x3 days. She is followed by gastroenterology here at [facility]. Was seen in emergency department 12/08 and [...] IV Dilaudid. Follows with GI here at [facility]. Last saw Lindsey Willard 11/02/2024. Recommended [...] she is not eating. She was at [facility] yesterday for this current episode. CT [...] 1 tablet by mouth daily at bedtime. lxegsu-uyvtuhgv-dxzyzml (CREON) 24,000-76,000 -120,000 unit delayed release capsule No No Sig: Take 2 caps by mouth 3 times daily with meals and 1 cap with each snack. Take 1st cap before meal starts and the 2nd cap hill (more content not included)... Normal [facility] PT panel Coag (PPP)on 2024 INR Coag (PPP) [Relative time] 1.1 {INR} Normal 0.9-1.3 [facility] Comment on above: Order Comment: Speci men Type: BLOOD SPECIMENOrdering Facility: [facility] Address: [address] [place] [address] Result Comment: Danyelle min K Antagonist (VKA) Therapeutic Range: INR 2 to 3 (Target INR of 2.5) Note: For patients treated with VKA drugs, such as warfarin, the [employer] [employer] 2012 Guideline recommends [...] Chest 2012, 141:7S-47S Amrita ROGER et al. [facility] 2017, 70: 252-289 Performed By: #### 3 4528-0 ####[facility] LABCLIA [id number] [place] [id number] [place] PT Coag (PPP) [Time] 11.5 s Normal 9.7-13.0 [facility] Comment on above: Order Comment: Speci men Type: BLOOD SPECIMENOrdering Facility: [facility] Address: [address] [place] [address] Performed By: #### 3 4528-0 ####[facility] [id number] [place] [id number] [place] Renal function 2000 panelon 12-10-2024 Albumin [Mass/Vol] 3.9 g/dL Normal 3.9-4.9 [facility] Comment on above: Order Comment: Speci men Type: BLOOD SPECIMENOrdering Facility: [facility] Address: [address] [place] [address] Performed By: #### 2 4362-6 ####[facility] [id number] [place] [address] [place] Anion gap [Moles/Vol] 12 mmol/L Normal 8-15 [facility] Comment on above: Order Comment: Speci men Type: BLOOD SPECIMENOrdering Facility: [facility] Address: [address] [place] [address] Performed By: #### 2 4362-6 ####[facility] [id number] [place] [id number] [place] Calcium [Mass/Vol] 10.2 mg/dL Normal 8.5-10.2 [facility] Comment on above: Order Comment: Speci men Type: BLOOD SPECIMENOrdering Facility: [facility] Address: [address] [place] [address] Performed By: #### 2 4362-6 ####[facility] [id number] [place] [id number] [place] Chloride [Moles/Vol] 105 mmol/L Normal 98-107 [facility] Comment on above: Order Comment: Speci men Type: BLOOD SPECIMENOrdering Facility: [facility] Address: [address] [place] [address] Performed By: #### 2 4362-6 ####[facility]CLIA [id number] [place] [id number] [place] CO2 [Moles/Vol] 23 mmol/L Normal 22-30 [facility] Comment on above: Order Comment: Speci men Type: BLOOD SPECIMENOrdering Facility: [facility] Address: [address] [place] [address] Performed By: #### 2 4362-6 ####[facility] [id number] [address] [facility] Creatinine [Mass/Vol] 0.78 mg/dL Normal 0.58-0.96 [facility] Comment on above: Order Comment: Speci men Type: BLOOD SPECIMENOrdering Facility: [facility] Address: [address] [place] [address] Performed By: #### 2 4362-6 ####[facility] [id number] [place] [address] [place] eGFRcr SerPlBld CKD-EPI 2020 90 mL/min/1.73m??? Normal >=60 [facility] Comment on above: Order Comment: Speci men Type: BLOOD SPECIMENOrdering Facility: [facility] Address: [address] [place] [address] Result Comment: Patti mated Glomerular Filtration Rate [...] actual GFR. Performed By: #### 2 4362-6 ####[facility] [id number] [place] [id number] [place] Glucose [Mass/Vol] 97 mg/dL Normal 74-99 [facility] Comment on above: Order Comment: Speci men Type: BLOOD SPECIMENOrdering Facility: [facility] Address: [address] [place] [address] Result Comment: The [place] Diabetes Association (ADA) provides guidance for cutoff [...] Standards of Medical Care in Diabetes 2016, [place] [employer]. Diabetes Care. 2016.39(Suppl 1). Performed By: #### 2 4362-6 ####[facility] [id number] [place] [id number] [place] Phosphate [Mass/Vol] 2.7 mg/dL Normal 2.7-4.8 [facility] Comment on above: Order Comment: Speci men Type: BLOOD SPECIMENOrdering Facility: [facility] Address: [address] [place] [address] Performed By: #### 2 4362-6 ####[facility] [id number] [place] [id number] [place] Potassium [Moles/Vol] 3.8 mmol/L Normal 3.7-5.1 [facility] Comment on above: Order Comment: Speci men Type: BLOOD SPECIMENOrdering Facility: [facility] Address: [address] [place] [address] Performed By: #### 2 4362-6 ####[facility] [id number] [place] [id number] [place] Sodium [Moles/Vol] 140 mmol/L Normal 136-144 [facility] Comment on above: Order Comment: Speci men Type: BLOOD SPECIMENOrdering Facility: [facility] Address: [address] [place] [address] Performed By: #### 2 4362-6 ####[facility] [id number] [place] [address] [place] Urea nitrogen [Mass/Vol] 14 mg/dL Normal 7-21 [facility] Comment on above: Order Comment: Speci men Type: BLOOD SPECIMENOrdering Facility: [facility] Address: [address] [place] [address] Performed By: #### 2 4362-6 ####[facility] [id number] [address], [place] [address] [place] Urinalysis complete panel (U )on 12-10-2024 Bacteria LM.HPF (Urine sed) [#/Area] Negative Normal Negative [facility] Comment on above: Order Comment: Speci men Type: URINE SPECIMENOrdering Facility: [facility] Address: [address] [place] [address] Performed By: #### 2 4356-8 ####[facility] [id number] [address], [place] [address] [place] Bilirubin Ql (U) Negative Normal Negative [facility] Comment on above: Order Comment: Speci men Type: URINE SPECIMENOrdering Facility: [facility] Address: [address] [place] [address] Performed By: #### 2 4356-8 ####[facility] [id number] [place] [id number] [place] Clarity (Unsp spec) Cloudy Abnormal Clear [facility] Comment on above: Order Comment: Speci men Type: URINE SPECIMENOrdering Facility: [facility] Address: [address] [place] [address] Performed By: #### 2 4356-8 ####[facility] [id number] [address], [place] [address] [place] Color (U) Dark Yellow Abnormal Yellow [facility] Comment on above: Order Comment: Speci men Type: URINE SPECIMENOrdering Facility: [facility] Address: [address] [place] [address] Performed By: #### 2 4356-8 ####[facility] [id number] [address], [place] [address] [place] Epithelial cells LM.HPF (Urine sed) [#/Area] Moderate Normal [facility] Comment on above: Order Comment: Speci men Type: URINE SPECIMENOrdering Facility: [facility] Address: [address] [place] [address] Performed By: #### 2 4356-8 ####[facility]CL[facility] [id number] [place] [address] [place] Glucose Test strip (U) [Mass/Vol] Negative Normal Negative [facility] Comment on above: Order Comment: Speci men Type: URINE SPECIMENOrdering Facility: [facility] Address: [address] [place] [address] Performed By: #### 2 4356-8 ####[facility] [id number] [place] [id number] [place] Hemoglobin Ql (U) Negative Normal Negative [facility] Comment on above: Order Comment: Speci men Type: URINE SPECIMENOrdering Facility: [facility] Address: [address] [place] [address] Performed By: #### 2 4356-8 ####[facility]CL[facility] [id number] [address], [facility]95 [place] Hyaline casts (Urine sed) [#/Area] /[LPF] Abnormal 0 /LPF [facility] Comment on above: Order Comment: Speci men Type: URINE SPECIMENOrdering Facility: [facility] Address: [address] [place] [address] Performed By: #### 2 4356-8 ####[facility]CL[facility] [id number] [address] [place] [address] [place] Ketones Ql (U) Trace Abnormal Negative [facility] Comment on above: Order Comment: Speci men Type: URINE SPECIMENOrdering Facility: [facility] Address: [address] [place] [address] Performed By: #### 2 4356-8 ####[facility]CL[facility] [id number] [place] [address] [place] Leukocyte esterase Test strip Ql (U) Negative Normal Negative [facility] Comment on above: Order Comment: Speci men Type: URINE SPECIMENOrdering Facility: [facility] Address: [address] [place] [address] Performed By: #### 2 4356-8 ####[facility]CL[facility] [id number] [address], [place] [address] [place] Nitrite Ql (U) Negative Normal Negative [facility] Comment on above: Order Comment: Speci men Type: URINE SPECIMENOrdering Facility: [facility] Address: [address] [place] [address] Performed By: #### 2 4356-8 ####[facility]CL[facility] [id number] [place] [id number] [place] pH (U) 5.5 [pH] Normal 5.0-8.0 [facility] Comment on above: Order Comment: Speci men Type: URINE SPECIMENOrdering Facility: [facility] Address: [address] [place] [address] Performed By: #### 2 4356-8 ####[facility]CLIA [id number] [address], [facility]95 [place] Protein (U) [Mass/Vol] 1+ Abnormal Negative [facility] Comment on above: Order Comment: Speci men Type: URINE SPECIMENOrdering Facility: [facility] Address: [address] [place] [address] Performed By: #### 2 4356-8 ####[facility] [id number] [place] [address] [place] RBC LM.HPF (Urine sed) [#/Area] 3-5 /HPF Abnormal 0-2 /HPF [facility] Comment on above: Order Comment: Speci men Type: URINE SPECIMENOrdering Facility: [facility] Address: [address] [place] [address] Performed By: #### 2 4356-8 ####[facility] [id number] [place] [address] [place] Specific gravity (U) [Rel density] 1.040 High 1.005-1.03 0 [facility] Comment on above: Order Comment: Speci men Type: URINE SPECIMENOrdering Facility: [facility] Address: [address] [place] [address] Performed By: #### 2 4356-8 ####[facility] [id number] [place] [address] [place] Urobilinogen Ql (U) 1.0 EU/dL Normal 0.2-1.0 EU/dL [facility] Comment on above: Order Comment: Speci men Type: URINE SPECIMENOrdering Facility: [facility] Address: [address] [place] [address] Performed By: #### 2 4356-8 ####[facility] [id number] [place] [address] [place] WBC LM.HPF (Urine sed) [#/Area] 0-5 /HPF Normal 0-5 /HPF [facility] Comment on above: Order Comment: Speci men Type: URINE SPECIMENOrdering Facility: [facility] Address: [address] [place] [address] Performed By: #### 2 4356-8 ####[facility] [id number] [place] [address] [place] Yeast.budding LM.HPF (Urine sed) [#/Area] Present Abnormal None Seen [facility] Comment on above: Order Comment: Speci men Type: URINE SPECIMENOrdering Facility: [facility] Address: [address] [place] [address] Performed By: #### 2 4356-8 ####[facility] [id number] [place] [address] [place] Amylase SerPl-cCncon 025 Amylase [Catalytic activity/Vol] 94 U/L Normal 30-104 [facility] Comment on above: Order Comment: Speci men Type: BLOOD SPECIMENOrdering Facility: [facility] Address: [address] [place] [address] Performed By: #### 1 798-8, LIPNF, 3040-3, 46290-3 ####[facility] [id number] [place] [address] [place] CBC W Auto Differential pane l (Bld)on 12-09-2024 Basophils (Bld) [#/Vol] 0.09 10*3/uL Normal <0.11 [facility] Comment on above: Order Comment: Speci men Type: BLOOD SPECIMENOrdering Facility: [facility] Address: [address] [place] [address] Performed By: #### 5 7021-8 ####[facility] [id number] [place] [address] [place] Basophils/100 WBC (Bld) 0.7 % Normal [facility] Comment on above: Order Comment: Speci men Type: BLOOD SPECIMENOrdering Facility: [facility] Address: [address] [place] [address] Performed By: #### 5 7021-8 ####[facility] [id number] [facility] [address], [place] [address] [place] Differential cell count method Nom (Bld) Auto Normal [facility] Comment on above: Order Comment: Speci men Type: BLOOD SPECIMENOrdering Facility: [facility] Address: [address] [place] [address] Performed By: #### 5 7021-8 ####[facility]CL[facility] [id number] [place] [address] [place] Eosinophils (Bld) [#/Vol] 0.05 10*3/uL Normal <0.46 [facility] Comment on above: Order Comment: Speci men Type: BLOOD SPECIMENOrdering Facility: [facility] Address: [address] [place] [address] Performed By: #### 5 7021-8 ####[facility]CL[facility] [id number] [place] [address] [place] Eosinophils/100 WBC (Bld) 0.4 % Normal [facility] Comment on above: Order Comment: Speci men Type: BLOOD SPECIMENOrdering Facility: [facility] Address: [address] [place] [address] Performed By: #### 5 7021-8 ####[facility] [id number] [place] [address] [place] Erythrocyte distribution width (RBC) [Ratio] 12.5 % Normal 11.5-15.0 [facility] Comment on above: Order Comment: Speci men Type: BLOOD SPECIMENOrdering Facility: [facility] Address: [address] [place] [address] Performed By: #### 5 7021-8 ####[facility] [id number] [place] [address] [place] Hematocrit (Bld) [Volume fraction] 43.8 % Normal 36.0-46.0 [facility] Comment on above: Order Comment: Speci men Type: BLOOD SPECIMENOrdering Facility: [facility] Address: [address] [place] [address] Performed By: #### 5 7021-8 ####[facility] [id number] [place] [address] [place] Hemoglobin (Bld) [Mass/Vol] 15.2 g/dL Normal 11.5-15.5 [facility] Comment on above: Order Comment: Speci men Type: BLOOD SPECIMENOrdering Facility: [facility] Address: [address] [place] [address] Performed By: #### 5 7021-8 ####[facility] [id number] [place] [address] [place] Immature granulocytes (Bld) [#/Vol] 0.03 10*3/uL Normal <0.10 [facility] Comment on above: Order Comment: Speci men Type: BLOOD SPECIMENOrdering Facility: [facility] Address: [address] [place] [address] Performed By: #### 5 7021-8 ####[facility] [id number] [place] [address] [place] Immature granulocytes/100 WBC (Bld) 0.2 % Normal [facility] Comment on above: Order Comment: Speci men Type: BLOOD SPECIMENOrdering Facility: [facility] Address: [address] [place] [address] Performed By: #### 5 7021-8 ####[facility] [id number] [place] [address] [place] Lymphocytes (Bld) [#/Vol] 2.53 10*3/uL Normal 1.00-4.00 [facility] Comment on above: Order Comment: Speci men Type: BLOOD SPECIMENOrdering Facility: [facility] Address: [address] [place], [place] [address] Performed By: #### 5 7021-8 ####[facility] [id number] [place] [address] [place] Lymphocytes/100 WBC (Bld) 20.3 % Normal [facility] Comment on above: Order Comment: Speci men Type: BLOOD SPECIMENOrdering Facility: [facility] Address: [address] [place] [address] Performed By: #### 5 7021-8 ####[facility] [id number] [place] [address] [place] MCH (RBC) [Entitic mass] 33.4 pg Normal 26.0-34.0 [facility] Comment on above: Order Comment: Speci men Type: BLOOD SPECIMENOrdering Facility: [facility] Address: [address] [place] [address] Performed By: #### 5 7021-8 ####[facility] [id number] [place] [address] [place] MCHC (RBC) [Mass/Vol] 34.7 g/dL Normal 30.5-36.0 [facility] Comment on above: Order Comment: Speci men Type: BLOOD SPECIMENOrdering Facility: [facility] Address: [address] [place] [address] Performed By: #### 5 7021-8 ####[facility] [id number] [place] [address] [place] MCV (RBC) [Entitic vol] 96.3 fL Normal 80.0-100.0 [facility] Comment on above: Order Comment: Speci men Type: BLOOD SPECIMENOrdering Facility: [facility] Address: [address] [place] [address] Performed By: #### 5 7021-8 ####[facility] [id number] [id number] [address] [place] Monocytes (Bld) [#/Vol] 1.18 10*3/uL High <0.87 [facility] Comment on above: Order Comment: Speci men Type: BLOOD SPECIMENOrdering Facility: [facility] Address: [address] [place] [address] Performed By: #### 5 7021-8 ####[facility]CL[facility] [id number] [id number], [facility]95 [place] Monocytes/100 WBC (Bld) 9.4 % Normal [facility] Comment on above: Order Comment: Speci men Type: BLOOD SPECIMENOrdering Facility: [facility] Address: [address] [place] [address] Performed By: #### 5 7021-8 ####[facility]CL[facility] [id number] [facility] [place] [address] [place] Neutrophils (Bld) [#/Vol] 8.61 10*3/uL High 1.45-7.50 [facility] Comment on above: Order Comment: Speci men Type: BLOOD SPECIMENOrdering Facility: [facility] Address: [address] [place] [address] Performed By: #### 5 7021-8 ####[facility] [id number] [place] [id number] [place] Neutrophils/100 WBC (Bld) 69.0 % Normal [facility] Comment on above: Order Comment: Speci men Type: BLOOD SPECIMENOrdering Facility: [facility] Address: [address] [place] [address] Performed By: #### 5 7021-8 ####[facility] [id number] [place] [id number] [place] Nucleated RBC (Bld) [#/Vol] 10*3/uL Normal <0.01 [facility] Comment on above: Order Comment: Speci men Type: BLOOD SPECIMENOrdering Facility: [facility] Address: [address] [place] [address] Performed By: #### 5 7021-8 ####[facility] [id number] [place] [address] [place] Nucleated RBC/100 WBC (Bld) [Ratio] 0.0 /100 WBC Normal [facility] Comment on above: Order Comment: Speci men Type: BLOOD SPECIMENOrdering Facility: [facility] Address: [address] [place] [address] Performed By: #### 5 7021-8 ####[facility] [id number] [place] [address] [place] Platelet mean volume (Bld) [Entitic vol] 9.4 fL Normal 9.0-12.7 [facility] Comment on above: Order Comment: Speci men Type: BLOOD SPECIMENOrdering Facility: [facility] Address: [address] [place] [address] Performed By: #### 5 7021-8 ####[facility] [id number] [place] [address] [place] Platelets (Bld) [#/Vol] 443 10*3/uL High 150-400 [facility] Comment on above: Order Comment: Speci men Type: BLOOD SPECIMENOrdering Facility: [facility] Address: [address] [place] [address] Performed By: #### 5 7021-8 ####[facility] [id number] [place] [address] [place] RBC (Bld) [#/Vol] 4.55 10*6/uL Normal 3.90-5.20 [facility] Comment on above: Order Comment: Speci men Type: BLOOD SPECIMENOrdering Facility: [facility] Address: [address] [place] [address] Performed By: #### 5 7021-8 ####[facility] [id number] [place] [id number] [place] WBC (Bld) [#/Vol] 12.49 10*3/uL High 3.70-11.00 [facility] Comment on above: Order Comment: Speci men Type: BLOOD SPECIMENOrdering Facility: [facility] Address: [address] [place] [address] Performed By: #### 5 7021-8 ####[facility] [id number] [place] [address] [place] Comprehensive metabolic 2000 panelon 12-09-2024 Albumin [Mass/Vol] 4.8 g/dL Normal 3.9-4.9 [facility] Comment on above: Order Comment: Speci men Type: BLOOD SPECIMENOrdering Facility: [facility] Address: [address] [place] [address] Performed By: #### 1 798-8, LIPNF, 3040-3, 35577-5 ####[facility] [id number] [place] [address] [place] ALP [Catalytic activity/Vol] 169 U/L High 34-123 [facility] Comment on above: Order Comment: Speci men Type: BLOOD SPECIMENOrdering Facility: [facility] Address: [address] [place] [address] Performed By: #### 1 798-8, LIPNF, 3040-3, 12127-7 ####[facility] [id number] [place] [address] [place] ALT [Catalytic activity/Vol] 20 U/L Normal 7-38 [facility] Comment on above: Order Comment: Speci men Type: BLOOD SPECIMENOrdering Facility: [facility] Address: [address] [place] [address] Performed By: #### 1 798-8, LIPNF, 3040-3, 75471-0 ####[facility] [id number] [place] [address] [place] Anion gap [Moles/Vol] 16 mmol/L High 8-15 [facility] Comment on above: Order Comment: Speci men Type: BLOOD SPECIMENOrdering Facility: [facility] Address: [address] [place] [address] Performed By: #### 1 798-8, LIPNF, 3040-3, 14971-2 ####[facility] [id number] [place] [address] [place] AST [Catalytic activity/Vol] 22 U/L Normal 13-35 [facility] Comment on above: Order Comment: Speci men Type: BLOOD SPECIMENOrdering Facility: [facility] Address: [address] [place] [address] Performed By: #### 1 798-8, LIPNF, 3040-3, 74592-9 ####[facility] [id number] [place] [address] [place] Bilirubin [Mass/Vol] 0.2 mg/dL Normal 0.2-1.3 [facility] Comment on above: Order Comment: Speci men Type: BLOOD SPECIMENOrdering Facility: [facility] Address: [address] [place] [address] Performed By: #### 1 798-8, LIPNF, 3040-3, 30177-7 ####[facility] [id number] [place] [address] [place] Calcium [Mass/Vol] 11.3 mg/dL High 8.5-10.2 [facility] Comment on above: Order Comment: Speci men Type: BLOOD SPECIMENOrdering Facility: [facility] Address: [address] [place] [address] Performed By: #### 1 798-8, LIPNF, 3040-3, 37803-4 ####[facility] [id number] [place] [id number] [place] Chloride [Moles/Vol] 102 mmol/L Normal 98-107 [facility] Comment on above: Order Comment: Speci men Type: BLOOD SPECIMENOrdering Facility: [facility] Address: [address] [place] [address] Performed By: #### 1 798-8, LIPNF, 3040-3, 75961-4 ####[facility] [id number] [place] [address] [place] CO2 [Moles/Vol] 23 mmol/L Normal 22-30 [facility] Comment on above: Order Comment: Speci men Type: BLOOD SPECIMENOrdering Facility: [facility] Address: [address] [place] [address] Performed By: #### 1 798-8, LIPNF, 3040-3, 73716-2 ####[facility] [id number] [place] [address] [place] Creatinine [Mass/Vol] 1.00 mg/dL High 0.58-0.96 [facility] Comment on above: Order Comment: Speci men Type: BLOOD SPECIMENOrdering Facility: [facility] Address: [address] [place] [address] Performed By: #### 1 798-8, LIPNF, 3040-3, 17747-3 ####[facility] [id number] [place] [address] [place] eGFRcr SerPlBld CKD-EPI 2020 67 mL/min/1.73m??? Normal >=60 [facility] [place] Comment on above: Order Comment: Speci men Type: BLOOD SPECIMENOrdering Facility: [facility] Address: [address] [place] [address] Result Comment: Patti mated Glomerular Filtration Rate [...] Performed By: #### 1 798-8, NIC, 3039-05, ####[facility]IA [id number] [address] [address] [place] Glucose [Mass/Vol] 112 mg/dL High 74-99 [facility] Comment on above: Order Comment: Leticia her Type: BLOOD SPECIMENOrdering Facility: [facility] Address: [address] [place] [address] Result Comment: The [place] Diabetes Association (ADA) provides guidance for cutoff [...] Standards of Medical Care in Diabetes 2016, [place] Diabetes Association. Diabetes Care. 2016.39(Suppl 1). Performed By: #### 1 798-8, NIC, 3039-05, ####[facility]IA [id number] [address] [address] [place] Potassium [Moles/Vol] 4.4 mmol/L Normal 3.7-5.1 [facility] Comment on above: Order Comment: Leticia her Type: BLOOD SPECIMENOrdering Facility: [facility] Address: [address] [place] [address] Performed By: #### 1 798-8, NIC, 3039-05, ####[facility]IA [id number] [address] [address] [place] Protein [Mass/Vol] 8.3 g/dL High 6.3-8.0 [facility] Comment on above: Order Comment: Speci men Type: BLOOD SPECIMENOrdering Facility: [facility] Address: [address] [place] [address] Performed By: #### 1 798-8, LIPNF, 3040-3, 44086-3 ####[facility]IA [id number] [place] [address] [place] Sodium [Moles/Vol] 141 mmol/L Normal 136-144 [facility] Comment on above: Order Comment: Speci men Type: BLOOD SPECIMENOrdering Facility: [facility] Address: [address] [place] [address] Performed By: #### 1 798-8, LIPNF, 3040-3, 93005-7 ####[facility]IA [id number] [place] [address] [place] Urea nitrogen [Mass/Vol] 14 mg/dL Normal 7-21 [facility] Comment on above: Order Comment: Speci men Type: BLOOD SPECIMENOrdering Facility: [facility] Address: [address] [place] [address] Performed By: #### 1 798-8, LIPNF, 3040-3, 05383-2 ####[facility]CLIA [id number] [place] [id number] [place] ECG COMPLETEon 12-09-2024 ECG COMPLETE Ventricular Rate : 8 8 BPM Atrial Rate : 88 BPM P-R Interval : 122 ms QRS Duration : 74 ms Q-T Interval : 348 ms QTC Calculation(Bazett) : 421 ms Calculated P Chester : 63 degrees Calculated R Chester : 65 degrees Calculated T Chester : 59 degrees NORMAL SINUS RHYTHM NORMAL ECG Confirmed by Edmund ALVARADO JOHN ([id number]), business editor CHUCHO KELLOGG ([id number]) on 12/17/2024 1:33:42 PM NAME : CHIOMA RAINEY PID : [id number] : 1970 Gender : Female Race : ORD : [id number] Procedure Date : Dec 09 2024 18:52:19 Edit Date : Dec 17 2024 13:33:45 Diagnosis: NORMAL SINUS RHYTHM NORMAL ECG Confirmed by Edmund ALVARADO JOHN ([id number]), business editor CHUCHO KELLOGG ([id number]) on 12/17/2024 1:33:42 PM Test Reason : Chest Pain Location : 2 : EDNS [id number] Overread By : Edmund ALVARADO JOHN Edited By : CHUCHO KELLOGG Referred By : , Acquired by : Karen vieira [facility] ED NOTEon 12-09-2024 ED NOTE HNO ID: [id number] Author: MAGNO JIMENEZ RN Service: ? Author Type: Registered Nurse Type: ED Notes Filed: 12/09/2024 19:13 Note Text: Received bedside report from Jefry RN, assumed care at this time [facility] ED NOTE HNO ID: [id number] Author: JEFRY THOMPSON RN Service: Emergency Medicine Author Type: Registered Nurse Type: ED Notes Filed: 12/09/2024 18:21 Note Text: Pt requesting something for nausea, MD notified. Pt unable to provide urine sample at this time, pt aware of need [facility] ED PROGRESS NOTE (PROVIDER)o n 12-09-2024 ED PROGRESS NOTE (PROVIDER) HNO ID: [id number] Author: DIOMEDES PAZ MD Service: Emergency Medicine [...] 2024 TIME: 9:36 PM PAGER/CONTACT #: Karen [facility] ED PROV NOTEon 12-09-2024 ED PROV NOTE HNO ID: [id number] Author: DIOMEDES PAZ MD Service: Emergency Medicine [...] She is followed by gastroenterology here at [facility]. Was seen in emergency department yesterday with [...] epigastric pain. Follows with GI here at [facility]. Last saw Lindsey Willard 11/02/2024. Recommended restart creon and elavil. Also ordered endoscopic US guided celiac plexus block. Underwent block 11/17 with no relief. Recent admission at [facility] for flare up of her pancreatitis. Dc [...] she is not eating. She was at [facility] yesterday for this current episode. CT [...] Negative. Psychiatr (more content not included)... Normal [facility] ED Triage Noteon 12-09-2024 ED Triage Note HNO ID: [id number] Author: MILLER GALLAGHER MD Service: Emergency Medicine [...] urinary or vaginal symptoms. Recently admitted at [facility] for the same, dc 2 weeks [...] (1) Reflex SIGNATURE: Miller Gallagher MD Normal [facility] LIPID PANEL, NONFASTINGon Cholesterol [Mass/Vol] 272 mg/dL High <200 [facility] Comment on above: Order Comment: Speci men Type: BLOOD SPECIMENOrdering Facility: [facility] Address: [address] [place] [address] Result Comment: <200 mg/dL, Desirable 200-239 mg/dL, Borderline high >239 mg/dL, High Performed By: #### 1 798-8, LIPNF, 3040-3, 10824-5 ####[facility]CLIA [id number] [place] [address] [place] HDL CHOLESTEROL, NF 42 mg/dL Normal >39 [facility] Comment on above: Order Comment: Leticia her Type: BLOOD SPECIMENOrdering Facility: [facility] Address: [address] [place] [address] Result Comment: 40-5 9 mg/dL, Acceptable >59 mg/dL, High: Negative risk factor for coronary heart disease <40 mg/dL, Low: Positive risk factor for coronary heart disease Performed By: #### 1 798-8, LIPELIZABETH, 3039-3, ####[facility] LABIA [id number] [address] [facility] LDL CHOLESTEROL CALCULATED, NF 193 mg/dL High <100 [facility] Comment on above: Order Comment: Jessicasherrill her Type: BLOOD SPECIMENOrdering Facility: [facility] Address: [address] [place] [address] Result Comment: <100 mg/dL, Optimal 100-129 mg/dL, Near optimal/above optimal 130-159 mg/dL, Borderline high 160-189 mg/dL, High >189 mg/dL, Very high Secondary prevention optimal LDL Cholesterol levels are recommended to be <70 mg/dL LDL cholesterol is calculated using the Lyon-NIH equation. Performed By: #### 1 798-8, LIPELIZABETH, 3039-3, ####[facility] LABIA [id number] [address] [place] LDL/HDL RATIO, NF 4.60 mg/dL High <2.54 [facility] Comment on above: Order Comment: Leticia her Type: BLOOD SPECIMENOrdering Facility: [facility] Address: [address] [place] [address] Result Comment: Vangie thomas: 1. National Cholesterol Education Program ATP III Guideline At-A-Glance Quick Desk Reference: National Heart, Lung, and Blood [place]. National Institutes of Health. 2001: NIH Publication No. 01-3305. 2. An International Atherosclerosis Society position paper: global recommendations for the management of dyslipidemia: executive summary, Atherosclerosis. 2014: 232(2):410-413. Performed By: #### 1 798-8, LIPNF, 3040-3, 98185-4 ####[facility]CLIA [id number] [place] [id number] [place] NON HDL CHOL, NF 230 mg/dL High <130 [facility] Comment on above: Order Comment: Speci men Type: BLOOD SPECIMENOrdering Facility: [facility] Address: [address] [place] [address] Result Comment: <130 mg/dL, Optimal 130-159 mg/dL, Near optimal/above optimal 160-189 mg/dL, Borderline high 190-219 mg/dL, High >219 mg/dL, Very high Secondary prevention optimal non HDL Cholesterol levels are recommended to be <100 mg/dL Performed By: #### 1 798-8, LIPNF, 0-3, 51227-6 ####[facility]CLIA [id number] [place] [address] [place] T CHOL/HDL RATIO NF 6.48 mg/dL High <5.10 [facility] Comment on above: Order Comment: Speci men Type: BLOOD SPECIMENOrdering Facility: [facility] Address: [address] [place] [address] Performed By: #### 1 798-8, LIPNF, 3039-3, 95629-9 ####[facility]CLIA [id number] [place] [address] [place] TRIGLYCERIDES, NF 193 mg/dL High <150 [facility] Comment on above: Order Comment: Speci men Type: BLOOD SPECIMENOrdering Facility: [facility] Address: [address] [place] [address] Result Comment: <150 mg/dL, Normal 150-199 mg/dL, Borderline high 200-499 mg/dL, High >499 mg/dL, Very high Performed By: #### 1 798-8, LIPNF, 3040-3, 61671-5 ####[facility] LABCLIA [id number] [place] [address] [place] VLDL CHOLESTEROL, NF 40 mg/dL High <30 [facility] Comment on above: Order Comment: Speci men Type: BLOOD SPECIMENOrdering Facility: [facility] Address: [address] [place] [address] Performed By: #### 1 798-8, LIPNF, 3040-3, 77529-7 ####[facility]CLIA [id number] [place] [address] [place] Lipase SerPl-cCncon 12-10-19 25 Lipase [Catalytic activity/Vol] 39 U/L Normal 16-61 [facility] Comment on above: Order Comment: Speci men Type: BLOOD SPECIMENOrdering Facility: [facility] Address: [address] [place] [address] Performed By: #### 1 798-8, LIPNF, 3040-3, 08382-9 ####[facility]CLIA [id number] [place] [address] [place] PHOSPHATIDYLETHANOL (PETH)on 12-09-2024 EER PETH See Note Normal [facility] Comment on above: Order Comment: Speci men Type: BLOOD SPECIMENOrdering Facility: [facility] Address: [address] [place] [address] Result Comment: Auth orized individuals can access the [employer] Enhanced Report with an [facility] account using the following link. Your local lab can assist you in obtaining the patient report if you don't have a Connect account. [email or web address] Performed By: #### P ETH ####[facility] [id number] [place] [address] PETH 16:0/18.2 (PLPETH) <10 Normal [facility] Comment on above: Order Comment: Speci men Type: BLOOD SPECIMENOrdering Facility: [facility] Address: [address] [place] [address] Result Comment: Refe rence ranges are not well established. Performed By: #### P ETH ####[facility]IESCLIA [id number] [place] [address] PETH 16:0/18:1 (POPETH) <10 Normal [facility] Comment on above: Order Comment: Speci men Type: BLOOD SPECIMENOrdering Facility: [facility] Address: [address] [place] [address] Result Comment: PEth 16:0/18:1 (POPEth) Less than 10 ng/mL............Not detected Less than 20 ng/mL............Abstinence or light alcohol consumption 20 - 200 ng/mL................Moderate alcohol consumption Greater than 200 ng/mL........Heavy alcohol consumption or chronic alcohol use (Reference: Brie Singh and Kimberly Kellogg 2018 J. Forensic Sci) Performed By: #### P ETH ####[facility] [id number] [place] [address] PETH INTERPRETATION See Comment Normal [facility] Comment on above: Order Comment: Speci men Type: BLOOD SPECIMENOrdering Facility: [facility] Address: [address] [place] [address] Result Comment: Phos phatidylethanol (PEth) is a [...] developed and its performance characteristics determined by [facility]. It has not been cleared or approved by the U.S. Food and Drug Administration. This test was performed in a CLIA-certified laboratory and is intended for clinical purposes. Performed By: [facility] [address] [place] [address] Crate Liner: Kevyn Parmar MD, PhD CLIA Number: [id number] Performed By: #### P ETH ####[facility] [id number] [place] [address] SEPSIS LACTATE W/ REFLEX (IN ITIAL)on 12-09-2024 Lactate [Moles/Vol] 1.1 mmol/L Normal <=2.0 [facility] Comment on above: Order Comment: Speci men Type: BLOOD SPECIMENOrdering Facility: [facility] Address: [address] [place] [address] Performed By: #### S LACTR ####[facility] LABCLIA [id number] [place] [address] [place] CBC WITH AUTO DIFFERENTIALon 12-08-2024 BASOPHILS ABSOLUTE COUNT (10*3/UL) BY AUTOMATED COUNT 0.1 10*3/uL Normal 0.0-0.2 [facility] Comment on above: Performed By: #### 8 9579-7, 91164-5, 5643-2, 80544-4, LIVR, 3040-3, CBCA, BMP #### [facility] ([id number]) [address] [place] [address] BASOPHILS RELATIVE PERCENT BY AUTOMATED COUNT 1.0 % Normal [facility] Comment on above: Performed By: #### 8 9579-7, 27015-2, 5643-2, 11066-1, LIVR, 3040-3, CBCA, BMP #### [facility] ([id number]) [address] [place] [address] CELLAVISION DIFFERENTIAL TYPE AUTOMATED DIFFERENTIAL Normal [facility] Comment on above: Performed By: #### 8 9579-7, 15769-7, 5643-2, 72725-5, LIVR, 3040-3, CBCA, BMP #### [facility] ([id number]) [address] [place] [address] Eosinophils (Bld) [#/Vol] 0.1 10*3/uL Normal 0.0-0.4 [facility] Comment on above: Performed By: #### 8 9579-7, 24589-5, 5643-2, 79071-9, LIVR, 3040-3, CBCA, BMP #### [facility] ([id number]) [address] [place] [address] EOSINOPHILS RELATIVE PERCENT BY AUTOMATED COUNT 0.6 % Normal [facility] Comment on above: Performed By: #### 8 9579-7, 02430-0, 5643-2, 34236-1, LIVR, 3040-3, CBCA, BMP #### [facility] ([id number]) [address] [place] [address] Erythrocyte distribution width (RBC) [Ratio] 13.1 % Normal 11.5-15 [facility] Comment on above: Performed By: #### 8 9579-7, 41735-3, 5643-2, 00405-8, LIVR, 3040-3, CBCA, BMP #### [facility] ([id number]) [address] [place] [address] Hematocrit (Bld) [Volume fraction] 44.9 % Normal 35-47 [facility] Comment on above: Performed By: #### 8 9579-7, 10621-3, 5643-2, 19998-5, LIVR, 3040-3, CBCA, BMP #### [facility] ([id number]) [address] [place] [address] Hemoglobin (Bld) [Mass/Vol] 15.4 g/dL Normal 11.7-15.5 [facility] Comment on above: Performed By: #### 8 9579-7, 76733-9, 5643-2, 11349-7, LIVR, 3040-3, CBCA, BMP #### [facility] ([id number]) [address] [place] [address] LYMPHOCYTES ABSOLUTE COUNT (10*3/UL) BY AUTOMATED COUNT 3.2 10*3/uL Normal 1.0-3.5 [facility] Comment on above: Performed By: #### 8 9579-7, 28644-7, 5643-2, 98524-9, LIVR, 3040-3, CBCA, BMP #### [facility] ([id number]) [address] [place] [address] LYMPHOCYTES RELATIVE PERCENT BY AUTOMATED COUNT 27.5 % Normal [facility] Comment on above: Performed By: #### 8 9579-7, 55312-6, 5643-2, 24282-2, LIVR, 3040-3, CBCA, BMP #### [facility] ([id number]) [address] [place] [address] MCH (RBC) [Entitic mass] 32.4 pg Normal 27-34 [facility] Comment on above: Performed By: #### 8 9579-7, 47470-1, 5643-2, 67971-0, LIVR, 3040-3, CBCA, BMP #### [facility] ([id number]) [address] [place] [address] MCHC (RBC) [Mass/Vol] 34.3 g/dL Normal 32-36 [facility] Comment on above: Performed By: #### 8 9579-7, 43755-6, 5643-2, 58202-7, LIVR, 3040-3, CBCA, BMP #### [facility] ([id number]) [address] [place] [address] MCV (RBC) [Entitic vol] 95 fL Normal 80-100 [facility] Comment on above: Performed By: #### 8 9579-7, 29246-2, 5643-2, 36994-5, LIVR, 3040-3, CBCA, BMP #### [facility] ([id number]) [address] [place] [address] MONOCYTES ABSOLUTE COUNT (10*3/UL) BY AUTOMATED COUNT 0.9 10*3/uL Normal 0.0-0.9 [facility] Comment on above: Performed By: #### 8 9579-7, 80470-5, 5643-2, 34585-9, LIVR, 3040-3, CBCA, BMP #### [facility] ([id number]) [address] [place] [address] MONOCYTES RELATIVE PERCENT BY AUTOMATED COUNT 8.1 % Normal [facility] Comment on above: Performed By: #### 8 9579-7, 02161-1, 5643-2, 84684-0, LIVR, 3040-3, CBCA, BMP #### [facility] ([id number]) [address] [place] [address] NEUTROPHILS ABSOLUTE COUNT BY AUTOMATED COUNT 7.3 10*3/uL High 1.5-6.6 [facility] Comment on above: Performed By: #### 8 9579-7, 12794-5, 5643-2, 97419-4, LIVR, 3040-3, CBCA, BMP #### [facility] ([id number]) [address] [place] [address] NEUTROPHILS RELATIVE PERCENT BY AUTOMATED COUNT 62.8 % Normal [facility] Comment on above: Performed By: #### 8 9579-7, 15343-8, 5643-2, 16701-0, LIVR, 3040-3, CBCA, BMP #### [facility] ([id number]) [address] [place] [address] Platelet mean volume (Bld) [Entitic vol] 7.8 fL Normal 7-12 [facility] Comment on above: Performed By: #### 8 9579-7, 63184-3, 5643-2, 26793-5, LIVR, 3040-3, CBCA, BMP #### [facility] ([id number]) [address] [place] [address] Platelets (Bld) [#/Vol] 404 10*3/uL Normal 150-450 [facility] Comment on above: Performed By: #### 8 9579-7, 50200-8, 5643-2, 11781-8, LIVR, 3040-3, CBCA, BMP #### [facility] ([id number]) [address] [place] [address]10 RBC COUNT 4.75 X10E12/L Normal 3.8-5.2 [facility] Comment on above: Performed By: #### 8 9579-7, 88457-6, 5643-2, 05312-1, LIVR, 3040-3, CBCA, BMP #### [facility] ([id number]) [address] [place] [address]257 WBC (Bld) [#/Vol] 11.6 10*3/uL High 4-11 [facility] Comment on above: Performed By: #### 8 9579-7, 45446-1, 5643-2, 98251-8, LIVR, 3040-3, CBCA, BMP #### [facility] ([id number]) [address] [place] [address]125 COMPREHENSIVE METABOLIC PANE Nimesh 12-08-2024 Albumin [Mass/Vol] 4.5 g/dL Normal 3.2-5.3 [facility] Comment on above: Performed By: #### 8 9579-7, 74230-3, 5643-2, 49778-2, LIVR, 3040-3, CBCA, BMP #### [facility] ([id number]) [address] [place] [address] 43414 ALP [Catalytic activity/Vol] 156 U/L High 39-130 [facility] Comment on above: Performed By: #### 8 9579-7, 58797-9, 5643-2, 04731-5, LIVR, 3040-3, CBCA, BMP #### [facility] ([id number]) [address] [place] [address] 18311 ALT [Catalytic activity/Vol] 21 U/L Normal <=31 [facility] Comment on above: Performed By: #### 8 9579-7, 81291-1, 5643-2, 57197-4, LIVR, 3040-3, CBCA, BMP #### [facility] ([id number]) [address] [place] [address] 76238 Anion gap [Moles/Vol] 13 mmol/L Normal 5-15 [facility] Comment on above: Performed By: #### 8 9579-7, 20421-7, 5643-2, 39511-1, LIVR, 3040-3, CBCA, BMP #### [facility] ([id number]) [address] [place] [address] 94360 AST [Catalytic activity/Vol] 23 U/L Normal <=41 [facility] Comment on above: Performed By: #### 8 9579-7, 59834-3, 5643-2, 21388-1, LIVR, 3040-3, CBCA, BMP #### [facility] ([id number]) [address] [place] [address] 67357 Bilirubin [Mass/Vol] 0.4 mg/dL Normal 0.3-1.2 [facility] Comment on above: Performed By: #### 8 9579-7, 93118-9, 5643-2, 03039-7, LIVR, 3040-3, CBCA, BMP #### [facility] ([id number]) [address] [place] [address] 50019 Calcium [Mass/Vol] 10.3 mg/dL Normal 8.5-10.5 [facility] Comment on above: Performed By: #### 8 9579-7, 06880-1, 5643-2, 85444-1, LIVR, 3040-3, CBCA, BMP #### [facility] ([id number]) [address] [place] [address] 86053 Chloride [Moles/Vol] 104 mmol/L Normal 98-109 [facility] Comment on above: Performed By: #### 8 9579-7, 70056-9, 5643-2, 02655-6, LIVR, 3040-3, CBCA, BMP #### [facility] ([id number]) [address] [place] [address] 26404 CO2 [Moles/Vol] 21 mmol/L Low 22-32 [facility] Comment on above: Performed By: #### 8 9579-7, 95455-9, 5643-2, 13723-2, LIVR, 3040-3, CBCA, BMP #### [facility] ([id number]) [address] [place] [address] 16195 Creatinine [Mass/Vol] 0.79 mg/dL Normal 0.40-1.00 [facility] Comment on above: Result Comment: METH OD TRACEABLE TO IDMS STANDARD Performed By: #### 8 9579-7, 50860-0, 5643-2, 45885-4, LIVR, 3040-3, CBCA, BMP #### [facility] ([id number]) [address] [place] [address] 67966 GFR/1.73 sq M.predicted among non-blacks MDRD (S/P/Bld) [Vol rate/Area] 88 mL/min/{1.73_m2} Normal >=60 [facility] Comment on above: Result Comment: eGFR not reported due to non-numeric value for Creatinine. Reported eGFR is based on the CKD-EPI 1 equation that does not use a race coefficient. Performed By: #### 8 9579-7, 38060-2, 5643-2, 76243-3, LIVR, 3040-3, CBCA, BMP #### [facility] ([id number]) [address] [place] [address] 66531 Glucose [Mass/Vol] 114 mg/dL High 65-99 [facility] Comment on above: Performed By: #### 8 9579-7, 82151-4, 5643-2, 64877-2, LIVR, 3040-3, CBCA, BMP #### [facility] ([id number]) [address] [place] [address] 46429 Potassium [Moles/Vol] 3.8 mmol/L Normal 3.5-5.0 [facility] Comment on above: Performed By: #### 8 9579-7, 68332-2, 5643-2, 71667-6, LIVR, 3040-3, CBCA, BMP #### [facility] ([id number]) [address] [place] [address] 12314 Protein [Mass/Vol] 8.5 g/dL High 6.0-8.0 [facility] Comment on above: Performed By: #### 8 9579-7, 08685-8, 5643-2, 86901-0, LIVR, 3040-3, CBCA, BMP #### [facility] ([id number]) [address] [place] [address] 37983 Sodium [Moles/Vol] 138 mmol/L Normal 134-146 [facility] Comment on above: Performed By: #### 8 9579-7, 29810-7, 5643-2, 70021-9, LIVR, 3040-3, CBCA, BMP #### [facility] ([id number]) [address] [place] [address] Urea nitrogen [Mass/Vol] 11 mg/dL Normal 5-23 [facility] Comment on above: Performed By: #### 8 9579-7, 77637-9, 5643-2, 03651-7, LIVR, 3040-3, CBCA, BMP #### [facility] ([id number]) [address] [place] [address] CT ABDOMEN AND PELVIS W CONT on [...] Arce MD on 12/08/2024 10:27 PM Normal [facility] LACTATE W/ REFLEXon 12-09-19 25 LACTATE W/REFLEX 1.4 mmol/L Normal 0.4-2.0 [facility] Comment on above: Order Comment: Resul t did not trigger repeat Lactate,re-order if needed. Performed By: #### 8 9579-7, 14633-2, 5643-2, 77799-9, LIVR, 3040-3, CBCA, BMP #### [facility] ([id number]) [address] [place] [id number] LIPASEon 12-08-2024 Lipase [Catalytic activity/Vol] 66 U/L High 17-40 [facility] Comment on above: Performed By: #### 8 9579-7, 48135-1, 5643-2, 47656-8, LIVR, 3040-3, CBCA, BMP #### [facility] ([id number]) [address] [place] [address] MAGNESIUMon 12-08-2024 Magnesium [Mass/Vol] 2.2 mg/dL Normal 1.8-2.6 [facility] Comment on above: Performed By: #### 8 9579-7, 53359-5, 5643-2, 88193-5, LIVR, 3040-3, CBCA, BMP #### [facility] ([id number]) [address] [place] [address], [place] [address] Discharge Note-Nursingon Discharge Note-Nursing Discharge Note-Nu rsing I accessed this chart because [facility] called, this pt is currently at their ER and the provider was requesting the records of the pt's stay here. A pt signature authorizing the share of this info was collected via FAX. [facility] Discharge Note-Nursingon Discharge Note-Nursing Discharge Note-Nu rsing JANUSZCHIOMA :1970 Visit Date:11/24/2024 Inpatient Discharge Instructions Your Care Team Admitting Physician - Geno Martin MD Reason for Your Visit Nausea, vomitting, abdominal pain Your Diagnosis Acute on chronic pancreatitis Leukocytosis History of alcohol use Smoker Abdominal pain Abdominal problem Nausea This Is Your Medications List acetaminophen-hydrocodone ([place] 325 mg-5 mg oral tablet) amitriptyline (amitriptyline [...] When Why Instructions Next Dose New acetaminophen-hydrocodone ([place] 325 mg-5 mg oral tablet) 1 Tablets By Mouth Every 6 hours as needed for for pain Acute on chronic pancreatitis Duration: 5 Days Pickup at [facility] Take as needed every 6 hours for pain New pantoprazole (Pantoprazole [address] Tab) 1 Tablets By Mouth Every day Duration: 30 Days Pickup at [facility] 11/30 @9am Unchanged amitriptyline (amitriptyline [...] a day 2pm and 9pm Pharmacy Information [facility]: [address] [place], [place] [id number] [phone] Test Results CBC BMP WBC: 8.2 E9/L [...] 11-29-2024 Inpatient Clinical Summary Inpatient Clinical Summary [address] [address] Clinical Summary Person Information: Name: CHIOMA ARCINIEGA Age: 54 Years : 1970 Sex: Female PCP: NONE, XXXX Marital Status: Race: White Ethnicity: Non- or Language: [place]ese Visit Id: Visit Reason: Abdominal problem; Nausea; Abdominal pain; SEVERE ABD PAIN, N/V Speciality: Acuity: Enc Type: Inpatient Med Service: Medical Arrival: 11/24/2024 20:08:05 Discharge: Dispo Type: Admitted as IP to this Hosp Address: [address] [place] [id number] Provider Notes: Diagnosis: 1:Acute on chronic pancreatitis; [...] Documented This Visit Final Med List: acetaminophen-hydrocodone ([place] 325 mg-5 mg oral tablet) 1 Tablets [...] NONE , [place] Patient Education Information: Normal [facility] Inpatient Patient Summaryon 11-29-2024 Inpatient Patient Summary Inpatient Patient Summary [place] [id number] Patient Discharge Instructions PERSON INFORMATION Name: CHIOMA [...] OCCURRED DURING YOUR HOSPITAL STAY New Medications [facility], [address] [place], [place] [id number], [phone] acetaminophen-hydrocodone ([place] 325 mg-5 mg oral tablet) 1 Tablets [...] THIS WITH YOU AT ALL TIMES. acetaminophen-hydrocodone ([place] 325 mg-5 mg oral tablet) 1 Tablets [...] to serve you. Thank you for choosing [facility] Normal [facility] BMPon 11-28-2024 Anion gap [Moles/Vol] 8 mmol/L Normal 6-16 [facility] Comment on above: Performed By: #### 2 [id number] #### [facility] [address] [place] [address] BUN/Creat Ratio 7 No Units Low 10-20 [facility] Comment on above: Performed By: #### 2 [id number] #### [facility] [address] [place] [address] Calcium [Mass/Vol] 8.5 mg/dL Low 8.9-11.1 [facility] Comment on above: Performed By: #### 2 [id number] #### [facility] [address] [place] [address] Chloride [Moles/Vol] 110 mmol/L Normal 101-111 [facility] Comment on above: Performed By: #### 2 500737 #### [facility] [address] [place] [address] CO2 [Moles/Vol] 24 mmol/L Normal 21-31 [facility] Comment on above: Performed By: #### 2 405405 #### [facility] [address] [place] [address] Creatinine [Mass/Vol] 0.7 mg/dL Normal 0.5-1.3 [facility] Comment on above: Performed By: #### 2 339322 #### [facility] [address] [place] [address] Glucose [Mass/Vol] 99 mg/dL Normal 55-199 [facility] Comment on above: Performed By: #### 2 [id number] #### [facility] [address] [place] [address] Potassium [Moles/Vol] 3.9 mmol/L Normal 3.5-5.3 [facility] Comment on above: Performed By: #### 2 316212 #### [facility] [address] [place] [address] Sodium [Moles/Vol] 138 mmol/L Normal 135-145 [facility] Comment on above: Performed By: #### 2 954008 #### [facility] [address] [place] [address] Urea nitrogen [Mass/Vol] 5 mg/dL Normal 5-21 [facility] Comment on above: Performed By: #### 2 635843 #### [facility] [address] [place] [address] Extra [place] 11-28-2024 WB Tube Collected Yes Invalid Interpretation Code [facility] Comment on above: Performed By: #### 1 [id number] #### [facility] [address] [place] [address] Interdisciplinary Note - Dwayne e Manageron 11-28-2024 Interdisciplinary Note - Binder Stripper Hand Interdisciplinary Note - Binder Stripper Hand CM followed up with patient at bedside. Patient is form home with and family. Patient continues to deny any additional discharge needs and will transport home at discharge. CM rounded with attending Dr Guido and possible DC tomorrow pending progress. CM will continue to follow. Normal [facility] Comment on above: Result Comment: Elec tronically Signed By: Lara Wilson\Date and Time Signed: 11/28/24 12:19 EDT Lipase Levelon 11-28-2024 Lipase Lvl 102 unit/L High 13-58 [facility] Comment on above: Performed By: #### 2 [id number] #### [facility] [address] [place] [address] eGFRon 11-28-2024 eGFR 102 mL/min/1.73 m2 Normal >=59 [facility] Comment on above: Performed By: #### 1 [id number] #### [facility] [address] [place] [address] BMPon 11-27-2024 Anion gap [Moles/Vol] 7 mmol/L Normal 6-16 [facility] Comment on above: Performed By: #### 2 565828 #### [facility] [address] [place] [address] BUN/Creat Ratio 9 No Units Low 10-20 [facility] Comment on above: Performed By: #### 2 147962 #### [facility] [address] [place] [address] Calcium [Mass/Vol] 8.6 mg/dL Low 8.9-11.1 [facility] Comment on above: Performed By: #### 2 933912 #### [facility] [address] [place] [address] Chloride [Moles/Vol] 109 mmol/L Normal 101-111 [facility] Comment on above: Performed By: #### 2 497112 #### [facility] [address] [place] [address] CO2 [Moles/Vol] 28 mmol/L Normal 21-31 [facility] Comment on above: Performed By: #### 2 822602 #### [facility] [address] [place] [address] Creatinine [Mass/Vol] 0.7 mg/dL Normal 0.5-1.3 [facility] Comment on above: Performed By: #### 2 263518 #### [facility] [address] [place] [address] Glucose [Mass/Vol] 86 mg/dL Normal 55-199 [facility] Comment on above: Performed By: #### 2 631612 #### [facility] [address] [place] [address] Potassium [Moles/Vol] 4.2 mmol/L Normal 3.5-5.3 [facility] Comment on above: Performed By: #### 2 507784 #### [facility] [address] [place] [address] Sodium [Moles/Vol] 140 mmol/L Normal 135-145 [facility] Comment on above: Performed By: #### 2 303197 #### [facility] [address] [place] [address] Urea nitrogen [Mass/Vol] 6 mg/dL Normal 5-21 [facility] Comment on above: Performed By: #### 2 548968 #### [facility] [address] [place] [address] CBC w/Indiceson 11-27-2024 Erythrocyte distribution width (RBC) [Ratio] 12.9 % Normal 10.9-14.2 [facility] Comment on above: Performed By: #### 2 119406 #### [facility] [address] [place] [address] Hematocrit (Bld) [Volume fraction] 33.9 % Low 34.0-46.0 [facility] Comment on above: Performed By: #### 2 510545 #### [facility] [address] [place] [address] Hemoglobin (Bld) [Mass/Vol] 11.5 g/dL Low 12.0-16.0 [facility] Comment on above: Performed By: #### 2 270793 #### [facility] [address] [place] [address] MCH (RBC) [Entitic mass] 32.8 pg Normal 27.0-34.0 [facility] Comment on above: Performed By: #### 2 994058 #### [facility] [address] [place] [address] MCHC (RBC) [Mass/Vol] 34.0 g/dL Normal 31.4-36.0 [facility] Comment on above: Performed By: #### 2 177348 #### [facility] [address] [place] [address] MCV (RBC) [Entitic vol] 96.5 fL Normal 80.0-100.0 [facility] Comment on above: Performed By: #### 2 610607 #### [facility] [address] [place] [address] Platelet 225.0 E9/L Normal 150.0-500. 0 [facility] Comment on above: Performed By: #### 2 682969 #### [facility] [address] [place] [address] Platelet mean volume (Bld) [Entitic vol] 8.0 fL Normal 6.4-10.8 [facility] Comment on above: Performed By: #### 2 [id number] #### [facility] [address] [place] [address] RBC 3.5 E12/L Low 4.3-5.9 [facility] Comment on above: Performed By: #### 2 695975 #### [facility] [address] [place] [address] RBC morphology finding Nom (Bld) NORMAL Invalid Interpretation Code [facility] Comment on above: Performed By: #### 2 824153 #### [facility] [address] [place] [address] WBC 8.2 E9/L Normal 4.0-11.0 [facility] Comment on above: Performed By: #### 2 142001 #### [facility] [address] [place] [address] Lipase Levelon 11-27-2024 Lipase Lvl 159 unit/L High 13-58 [facility] Comment on above: Performed By: #### 2 411335 #### [facility] [address] [place] [address] eGFRon 11-27-2024 eGFR 102 mL/min/1.73 m2 Normal >=59 [facility] Comment on above: Performed By: #### 1 [id number] #### [facility] [address] [place] [address] CBC w/ Auto Diffon 5 Basophil Absolute 0.0 E9/L Normal 0.0-0.2 [facility] Comment on above: Performed By: #### 2 729446 #### [facility] [address] [place] [address] Basophils/100 WBC (Bld) 0.6 % Normal 0.0-2.0 [facility] Comment on above: Performed By: #### 2 057044 #### [facility] [address] [place] [address] Eos Absolute 0.1 E9/L Normal 0.0-0.5 [facility] Comment on above: Performed By: #### 2 308438 #### [facility] [address] [place] [address] Eosinophils/100 WBC (Bld) 1.7 % Normal 0.0-8.0 [facility] Comment on above: Performed By: #### 2 227591 #### [facility] [address] [place] [address] Erythrocyte distribution width (RBC) [Ratio] 12.9 % Normal 10.9-14.2 [facility] Comment on above: Performed By: #### 2 396498 #### [facility] [address] [place] [address] Hematocrit (Bld) [Volume fraction] 33.6 % Low 34.0-46.0 [facility] Comment on above: Performed By: #### 2 116160 #### [facility] [address] [place] [address] Hemoglobin (Bld) [Mass/Vol] 11.6 g/dL Low 12.0-16.0 [facility] Comment on above: Performed By: #### 2 635359 #### [facility] [address] [place] [address] Lymph Absolute 3.0 E9/L Normal 1.0-4.0 [facility] Comment on above: Performed By: #### 2 028960 #### [facility] [address] [place] [address] Lymphocytes/100 WBC (Bld) 39.1 % Normal 14.0-50.0 [facility] Comment on above: Performed By: #### 2 794889 #### [facility] [address] [place] [address] MCH (RBC) [Entitic mass] 33.8 pg Normal 27.0-34.0 [facility] Comment on above: Performed By: #### 2 356088 #### [facility] [address] [place] [address] MCHC (RBC) [Mass/Vol] 34.6 g/dL Normal 31.4-36.0 [facility] Comment on above: Performed By: #### 2 701967 #### [facility] [address] [place] [address] MCV (RBC) [Entitic vol] 97.8 fL Normal 80.0-100.0 [facility] Comment on above: Performed By: #### 2 798728 #### [facility] [address] [place] [address] Nicholas Absolute 0.7 E9/L Normal 0.2-1.0 [facility] Comment on above: Performed By: #### 2 762409 #### [facility] [address] [place] [address] Monocytes/100 WBC (Bld) 9.7 % Normal 4.0-14.0 [facility] Comment on above: Performed By: #### 2 408944 #### [facility] [address] [place] [address] Neutro Absolute 3.8 E9/L Normal 2.0-7.5 [facility] Comment on above: Performed By: #### 2 527431 #### [facility] [address] [place] [address] Neutro Auto 48.9 % Normal 36.0-75.0 [facility] Comment on above: Performed By: #### 2 233762 #### [facility] [address] [place] [address] Platelet 255.0 E9/L Normal 150.0-500. 0 [facility] Comment on above: Performed By: #### 2 881444 #### [facility] [address] [place] [address] Platelet mean volume (Bld) [Entitic vol] 7.8 fL Normal 6.4-10.8 [facility] Comment on above: Performed By: #### 2 348409 #### [facility] [address] [place] [address] RBC 3.4 E12/L Low 4.3-5.9 [facility] Comment on above: Performed By: #### 2 960597 #### [facility] [address] [place] [address] WBC 7.7 E9/L Normal 4.0-11.0 [facility] Comment on above: Performed By: #### 2 029242 #### [facility] [address] [place] [address] CMPon 11-26-2024 Albumin [Mass/Vol] 3.5 g/dL Normal 3.3-5.0 [facility] Comment on above: Performed By: #### 2 015275 #### [facility] [address] [place] [address] Albumin/Globulin [Mass ratio] 1.8 {ratio} Normal 1.1-2.2 [facility] Comment on above: Performed By: #### 2 198994 #### [facility] [address] [place] [address] Alk Phos 121 Int._Unit/L High 21-98 [facility] Comment on above: Performed By: #### 2 925067 #### [facility] [address] [place] [address] ALT 18 Int._Unit/L Normal 6-46 [facility] Comment on above: Performed By: #### 2 057667 #### [facility] [address] [place] [address] Anion gap [Moles/Vol] 7 mmol/L Normal 6-16 [facility] Comment on above: Performed By: #### 2 442901 #### [facility] [address] [place] [address] AST 29 Int._Unit/L Normal 5-43 [facility] Comment on above: Performed By: #### 2 889428 #### [facility] [address] [place] [address] Bili Total 0.3 mg/dL Normal 0.0-1.1 [facility] Comment on above: Performed By: #### 2 821745 #### [facility] [address] [place] [address] BUN/Creat Ratio 10 No Units Normal 10-20 [facility] Comment on above: Performed By: #### 2 349161 #### [facility] [address] [place] [address] Calcium [Mass/Vol] 8.7 mg/dL Low 8.9-11.1 [facility] Comment on above: Performed By: #### 2 730825 #### [facility] [address] [place] [address] Chloride [Moles/Vol] 107 mmol/L Normal 101-111 [facility] Comment on above: Performed By: #### 2 818484 #### [facility] [address] [place] [address] CO2 [Moles/Vol] 28 mmol/L Normal 21-31 [facility] Comment on above: Performed By: #### 2 423826 #### [facility] [address] [place] [address] Creatinine [Mass/Vol] 0.8 mg/dL Normal 0.5-1.3 [facility] Comment on above: Performed By: #### 2 983095 #### [facility] [address] [place] [address] Globulin (S) [Mass/Vol] 1.9 g/dL Normal 1.4-4.0 [facility] Comment on above: Performed By: #### 2 438027 #### [facility] [address] [place] [address] Glucose [Mass/Vol] 84 mg/dL Normal 55-199 [facility] Comment on above: Performed By: #### 2 055658 #### [facility] [address] [place] [address] Potassium [Moles/Vol] 4.0 mmol/L Normal 3.5-5.3 [facility] Comment on above: Performed By: #### 2 699549 #### [facility] [address] [place] [address] Protein [Mass/Vol] 5.4 g/dL Low 6.0-7.8 [facility] Comment on above: Performed By: #### 2 080389 #### [facility] [address] [place] [address] Sodium [Moles/Vol] 138 mmol/L Normal 135-145 [facility] Comment on above: Performed By: #### 2 517675 #### [facility] [address] [place] [address] Urea nitrogen [Mass/Vol] 8 mg/dL Normal 5-21 [facility] Comment on above: Performed By: #### 2 099491 #### [facility] [address] [place] [address] Lipase Levelon 11-26-2024 Lipase Lvl 240 unit/L High 13-58 [facility] Comment on above: Performed By: #### 2 152611 #### [facility] [address] [place] [address] eGFRon 11-26-2024 eGFR 87 mL/min/1.73 m2 Normal >=59 [facility] Comment on above: Performed By: #### 1 [id number] #### [facility] [address] [place] [address] ED Clinical Summaryon 2024 ED Clinical Summary ED Clinical Summary [address] [address] ED Clinical Summary Person Information Name: CHIOMA ARCINIEGA[place] Age: 54 Years : 1970 Sex: Female Language: [place]ese PCP: NONE, XXXX Marital Status: Visit Id: Visit Reason: Abdominal problem; Nausea; Abdominal pain; SEVERE ABD PAIN, N/V Speciality: Acuity: 3 Enc Type: Inpatient Med Service: Medical Arrival: 11/24/2024 20:08:05 Discharge: LOS: 000 05:25 Checkin: 11/24/2024 20:08:05 Checkout: 11/25/2024 01:33:45 Dispo Type: Admitted as IP to this [facility] EVENTS: Event Name Event Status Request Date/Time [...] 11/25/2024 01:08:38 Lab Request 11/25/2024 01:08:38 ADDRESS: [address] [place] [id number] [facility] NOTES: MEDICAL INFORMATION: Prescriptions Given: Medications to Continue with No Changes Other Medications promethazine (promethazine 25 mg Tab) 1 Tablets By Mouth 3 times a day. Refills: 0. PATIENT EDUCATION INFORMATION: Instructions: Follow up: DIAGNOSIS: Acute on chronic pancreatitis; Other chronic pancreatitis Normal [facility] ED Note-Physicianon 11-26-19 ED Note-Physician ED [...] most recently a GI physician at the [facility] who performs interventional pain management treatments [...] more ciga (more content not included)... Normal [facility] Comment on above: Result Comment: Elec tronically Signed By: Loki Ernandez DO\.br\Date and Time Signed: 11/25/24 01:13 EDT ED Patient Education Noteon 11-25-2024 ED Patient Education Note ED Patient Education Note Normal [facility] ED Patient Summaryon 025 ED Patient Summary ED Patient Summary [place] [id number] Patient Discharge Instructions Person Information Name: CHIOMA ARCINIEGA Age: 54 Years Arrival Date: 11/24/2024 20:08:05 Discharge Diagnosis: Acute on chronic pancreatitis; Other chronic pancreatitis Primary Care Physician: NONE, XXXX Provider Information Primary Provider: Loki Ernandez DO Advanced [employer] Presser:None The exam and treatment you received in the Emergency Department were for an urgent problem and are not intended as complete care. It is important that you follow up with a doctor, nurse practitioner, or physician???s switchboard operator assistant for ongoing care. If your symptoms [...] opioids can be used to help relieve [id number]-py-rstuku pain and are often prescribed following a [...] be struggling with addiction, tell your health care team coordinator scheduler and ask for guidance or call [facility] [employer] Helpl[facility] at [phone]. g Source: [place] Department of Health and Human Services/C (more content not included)... [facility] Interdisciplinary Note - Dwayne e Manageron 11-25-2024 Interdisciplinary Note - Binder Stripper Hand Interdisciplinary Note - Binder Stripper Hand CM met with patient at bedside. Patient [...] with [facility] [place] for her PCP needs and Dr Hathaway is attending. Plan remains home no needs when medically stable. Patient admitted [place] for pancreatitis. CM to follow. [facility] Comment on above: Result Comment: Elec tronically Signed By: Lara Wilson I\.higinio\Date and Time Signed: 11/25/24 09:21 EDT BMPon 11-24-2024 Anion gap [Moles/Vol] 13 mmol/L Normal 6-16 [facility] Comment on above: Performed By: #### 2 [id number] #### [facility] [address] [place] [address] BUN/Creat Ratio 13 No Units Normal 10-20 [facility] Comment on above: Performed By: #### 2 760164 #### [facility] [address] [place] [address] Calcium [Mass/Vol] 10.7 mg/dL Normal 8.9-11.1 [facility] Comment on above: Performed By: #### 2 509154 #### [facility] [address] [place] [address] Chloride [Moles/Vol] 100 mmol/L Low 101-111 [facility] Comment on above: Performed By: #### 2 866004 #### [facility] [address] [place] [address] CO2 [Moles/Vol] 30 mmol/L Normal 21-31 [facility] Comment on above: Performed By: #### 2 829127 #### [facility] [address] [place] [address] Creatinine [Mass/Vol] 0.9 mg/dL Normal 0.5-1.3 [facility] Comment on above: Performed By: #### 2 265736 #### [facility] [address] [place] [address] Glucose [Mass/Vol] 109 mg/dL Normal 55-199 [facility] Comment on above: Performed By: #### 2 531376 #### [facility] [address] [place] [address] Potassium [Moles/Vol] 3.8 mmol/L Normal 3.5-5.3 [facility] Comment on above: Performed By: #### 2 561660 #### [facility] [address] [place] [address] Sodium [Moles/Vol] 139 mmol/L Normal 135-145 [facility] Comment on above: Performed By: #### 2 047189 #### [facility] [address] [place] [address] Urea nitrogen [Mass/Vol] 12 mg/dL Normal 5-21 [facility] Comment on above: Performed By: #### 2 572107 #### [facility] [address] [place] [address] CBC w/ Auto Diffon 5 Basophil Absolute 0.1 E9/L Normal 0.0-0.2 [facility] Comment on above: Performed By: #### 2 224589 #### [facility] [address] [place] [address] Basophils/100 WBC (Bld) 0.6 % Normal 0.0-2.0 [facility] Comment on above: Performed By: #### 2 [id number] #### [facility] [address] [place] [address] Eos Absolute 0.1 E9/L Normal 0.0-0.5 [facility] Comment on above: Performed By: #### 2 [id number] #### [facility] [address] [place] [address] Eosinophils/100 WBC (Bld) 0.6 % Normal 0.0-8.0 [facility] Comment on above: Performed By: #### 2 [id number] #### [facility] [address] [place] [address] Erythrocyte distribution width (RBC) [Ratio] 13.0 % Normal 10.9-14.2 [facility] Comment on above: Performed By: #### 2 [id number] #### [facility] [address] [place] [address] Hematocrit (Bld) [Volume fraction] 45.4 % Normal 34.0-46.0 [facility] Comment on above: Performed By: #### 2 [id number] #### [facility] [address] [place] [address] Hemoglobin (Bld) [Mass/Vol] 15.3 g/dL Normal 12.0-16.0 [facility] Comment on above: Performed By: #### 2 [id number] #### [facility] [address] [place] [address] Lymph Absolute 2.6 E9/L Normal 1.0-4.0 [facility] Comment on above: Performed By: #### 2 [id number] #### [facility] [address] [place] [address] Lymphocytes/100 WBC (Bld) 18.2 % Normal 14.0-50.0 [facility] Comment on above: Performed By: #### 2 [id number] #### [facility] [address] [place] [address] MCH (RBC) [Entitic mass] 32.2 pg Normal 27.0-34.0 [facility] Comment on above: Performed By: #### 2 [id number] #### [facility] [address] [place] [address] MCHC (RBC) [Mass/Vol] 33.6 g/dL Normal 31.4-36.0 [facility] Comment on above: Performed By: #### 2 [id number] #### [facility] [address] [place] [address] MCV (RBC) [Entitic vol] 95.9 fL Normal 80.0-100.0 [facility] Comment on above: Performed By: #### 2 [id number] #### [facility] [address] [place] [address] Nicholas Absolute 1.5 E9/L High 0.2-1.0 [facility] Comment on above: Performed By: #### 2 [id number] #### [facility] [address] [place] [address] Monocytes/100 WBC (Bld) 10.5 % Normal 4.0-14.0 [facility] Comment on above: Performed By: #### 2 [id number] #### [facility] [address] [place] [address] Neutro Absolute 10.0 E9/L High 2.0-7.5 [facility] Comment on above: Performed By: #### 2 [id number] #### [facility] [address] [place] [address] Neutro Auto 70.1 % Normal 36.0-75.0 [facility] Comment on above: Performed By: #### 2 [id number] #### [facility] [address] [place] [address] Platelet 373.0 E9/L Normal 150.0-500. 0 [facility] Comment on above: Performed By: #### 2 [id number] #### [facility] [address] [place] [address] Platelet mean volume (Bld) [Entitic vol] 7.8 fL Normal 6.4-10.8 [facility] Comment on above: Performed By: #### 2 [id number] #### [facility] [address] [place] [address] RBC 4.7 E12/L Normal 4.3-5.9 [facility] Comment on above: Performed By: #### 2 [id number] #### [facility] [address] [place] [address] WBC 14.3 E9/L High 4.0-11.0 [facility] Comment on above: Performed By: #### 2 [id number] #### [facility] [address] [place] [address] Extra Blueon 11-24-2024 Tube Collected Plasma Yes Invalid Interpretation Code [facility] Comment on above: Performed By: #### 1 [id number] #### [facility] [address] [place] [address] Hep Func Panelon 11-24-2024 Albumin [Mass/Vol] 4.9 g/dL Normal 3.3-5.0 [facility] Comment on above: Performed By: #### 2 [id number] #### [facility] [address] [place] [address] Albumin/Globulin [Mass ratio] 1.6 {ratio} Normal 1.1-2.2 [facility] Comment on above: Performed By: #### 2 [id number] #### [facility] [address] [place] [address] Alk Phos 169 Int._Unit/L High 21-98 [facility] Comment on above: Performed By: #### 2 [id number] #### [facility] [address] [place] [address] ALT 12 Int._Unit/L Normal 6-46 [facility] Comment on above: Performed By: #### 2 [id number] #### [facility] [address] [place] [address] AST 19 Int._Unit/L Normal 5-43 [facility] Comment on above: Performed By: #### 2 [id number] #### [facility] [address] [place] [address] Bili Direct 0.0 mg/dL Normal 0.0-0.4 [facility] Comment on above: Performed By: #### 2 [id number] #### [facility] [address] [place] [address] Bili Indirect 0.4 mg/dL Normal 0.1-0.9 [facility] Comment on above: Performed By: #### 2 734233 #### [facility] [address] [place] [address] Bili Total 0.4 mg/dL Normal 0.0-1.1 [facility] Comment on above: Performed By: #### 2 858167 #### [facility] [address] [place] [address] Globulin (S) [Mass/Vol] 3.0 g/dL Normal 1.4-4.0 [facility] Comment on above: Performed By: #### 2 [id number] #### [facility] [address] [place] [address] Protein [Mass/Vol] 7.9 g/dL High 6.0-7.8 [facility] Comment on above: Performed By: #### 2 [id number] #### [facility] [address] [place] [address] Lipase Levelon 11-24-2024 Lipase Lvl 303 unit/L High 13-58 [facility] Comment on above: Performed By: #### 2 869779 #### [facility] [address] [place] [address] eGFRon 11-24-2024 eGFR 75 mL/min/1.73 m2 Normal >=59 [facility] Comment on above: Performed By: #### 1 [id number] #### [facility] [address] [place] [address] ANES POSTPROC EVALon 025 ANES POSTPROC EVAL HNO ID: [id number] Author: MARLI COSBY MD Service: ? Author [...] Scheduled Providers: Josse Romo MD Responsible Provider: Maril Cosby MD Anesthesia Type: general ASA Status: [...] November 21, 2024 TIME: 8:23 AM CSN: [id number] Normal [facility] ANES PRE-OPon 11-17-2024 ANES PRE-OP HNO ID: [id number] Author: MARLI COSBY MD Service: ? Author Type: Physician Type: Anesthesia Preprocedure Evaluation Filed: 11/17/2024 14:39 Note Text: ANESTHESIOLOGY DAY OF SURGERY NOTE : 1970 Procedure Information Date/Time: 11/17/24 1530 Scheduled providers: Josse Romo MD; Sandhya Poon APRN.APPLICATION DEVELOPMENT DIRECTOR; Marli Cosby MD Procedure: EGD - THERAPEUTIC, [...] and consent discussed: yes. Patient / Responsible [employer] agrees to proceed: yes Patient / [...] Outpatient Medications as of 11/17/2024 Medication Sig zzfmfq-[id number]-lgfiwlc (CREON) 24,000-76,000 -120,000 unit delayed release capsule Take 2 caps by mouth 3 times daily with meals and 1 cap with each snack. Take 1st cap before meal starts and the 2nd cap custodial through. Max of 10 capsules per day. [...] November 17, 2024 TIME: 2:38 PM CSN: [id number] Normal [facility] EGD Study observation Narrat iveon 11-17-2024 [facility] Radiology Study observation (narrative) [facility] NURSING PROGon 11-17-2024 NURSING PROG HNO ID: [id number] Author: MAYRA SANTIAGO RN Service: ? Author [...] None Electronically Signed By: Mayra Santiago RN [facility] NURSING PROG HNO ID: [id number] Author: COLIN GUZMAN RN Service: ? Author [...] By: Colin Guzman RN In Department: GASTROENTEROLOGY [facility] CBC auto differentialon Basophils (Bld) [#/Vol] 0.04 10*3/uL [facility] Basophils/100 WBC (Bld) 1 % 0 - 2 % [facility] Eosinophils (Bld) [#/Vol] 0.17 10*3/uL [facility] Eosinophils/100 WBC (Bld) 3 % 1 - 4 % [facility] Erythrocyte distribution width (RBC) [Ratio] 12.3 % 11.8 - 14.4 % [facility] Hematocrit (Bld) [Volume fraction] 35.1 % Low 36.3 - 47.1 % [facility] Hemoglobin (Bld) [Mass/Vol] 11.9 g/dL 11.9 - 15.1 g/dL [facility] Immature granulocytes (Bld) [#/Vol] [facility] Immature granulocytes/100 WBC (Bld) 0 % 0 [facility] Interpretation and review of laboratory results Abnormal [facility] Lymphocytes/100 WBC (Bld) 22 % Low 24 - 43 % [facility] Lymphocytes/100 WBC (Bld) 1.43 % [facility] MCH (RBC) [Entitic mass] 33.1 pg 25.2 - 33.5 pg [facility] MCHC (RBC) [Mass/Vol] 33.9 g/dL 28.4 - 34.8 g/dL [facility] MCV (RBC) [Entitic vol] 97.8 fL 82.6 - 102.9 fL [facility] Monocytes/100 WBC (Bld) 15 % High 3 - 12 % [facility] Monocytes/100 WBC (Bld) 0.99 % [facility] Neutrophils/100 WBC (Bld) 59 % 36 - 65 % [facility] Nucleated RBC/100 WBC (Bld) [Ratio] 0.0 % 0.0 per 100 WBC [facility] Platelet mean volume (Bld) [Entitic vol] 9.8 fL 8.1 - 13.5 fL [facility] Platelets (Bld) [#/Vol] 144 10*3/uL [facility] RBC (Bld) [#/Vol] 3.59 10*6/uL Low 3.95 - 5.11 m/uL [facility] Segmented neutrophils/100 WBC (Bld) 3.84 % [facility] WBC other (Bld) [#/Vol] 6.5 [facility] CBC with Diffon 11-09-2024 Abs. Basophil 0.04 k/uL Normal 0.00-0.20 [facility] Comment on above: Performed By: #### B MP, LIVP, LIP #### [facility] [address] [place] [address] [employer] Installer: Ion Jasso MD Abs.Imm.Granulocyte <0.03 Normal 0.00-0.30 [facility] Comment on above: Performed By: #### B MP, LIVP, LIP #### [facility] [address] [place] [address] [employer] Installer: Ion Jasso MD Abs.Neutrophil (Seg) 3.84 k/uL Normal 1.50-8.10 [facility] Comment on above: Performed By: #### B MP, LIVP, LIP #### [address] [place], [place] [address] [employer]er: Ion Jasso MD Basophils/100 WBC (Bld) 1 % Normal 0-2 [facility] Comment on above: Performed By: #### B MP, LIVP, LIP #### [address] [place] [id number] [employer] Installer: Ion Jasso MD Eosinophils (Bld) [#/Vol] 0.17 10*3/uL Normal 0.00-0.44 [facility] Comment on above: Performed By: #### B MP, LIVP, LIP #### [address] [place], [place] [address] [employer] Installer: Ion Jasso MD Eosinophils/100 WBC (Bld) 3 % Normal 1-4 [facility] Comment on above: Performed By: #### B MP, LIVP, LIP #### [address] [place], [facility]83 [employer]er: Ion Jasso MD Erythrocyte distribution width (RBC) [Ratio] 12.3 % Normal 11.8-14.4 [facility] Comment on above: Performed By: #### B MP, LIVP, LIP #### [address] [place], [facility]83 [employer] Installer: Ion Jasso MD Hematocrit (Bld) [Volume fraction] 35.1 % Low 36.3-47.1 [facility] Comment on above: Performed By: #### B MP, LIVP, LIP #### [address] [place] [id number] [employer] Installer: Ion Jasso MD Hemoglobin (Bld) [Mass/Vol] 11.9 g/dL Normal 11.9-15.1 [facility] Comment on above: Performed By: #### B MP, LIVP, LIP #### [facility] [address] [place], [place] [address] [employer] Installer: Ion Jasso MD Immature granulocytes/100 WBC (Bld) 0 % Normal 0 [facility] Comment on above: Performed By: #### B MP, LIVP, LIP #### [facility] [address] [place], [place] [address] [employer] Installer: Ion Jasso MD Lymphocytes (Bld) [#/Vol] 1.43 10*3/uL Normal 1.10-3.70 [facility] Comment on above: Performed By: #### B MP, LIVP, LIP #### [address] [place], [place] [id number] [employer] Installer: Ion Jasso MD Lymphocytes/100 WBC (Bld) 22 % Low 24-43 [facility] Comment on above: Performed By: #### B MP, LIVP, LIP #### [address] [place], [place] [address] [employer] Installer: Ion Jasso MD MCH (RBC) [Entitic mass] 33.1 pg Normal 25.2-33.5 [facility] Comment on above: Performed By: #### B MP, LIVP, LIP #### [facility] [address] [place] [address] [place] [place], [place] [address] [employer] Installer: Ion Jasso MD MCHC (RBC) [Mass/Vol] 33.9 g/dL Normal 28.4-34.8 [facility] Comment on above: Performed By: #### B MP, LIVP, LIP #### [address] [place] [address] [employer] Installer: Ion Jasso MD MCV (RBC) [Entitic vol] 97.8 fL Normal 82.6-102.9 [facility] Comment on above: Performed By: #### B MP, LIVP, LIP #### [facility] [address] [place], [place] [id number] [employer] Installer: Ion Jasso MD Monocytes (Bld) [#/Vol] 0.99 10*3/uL Normal 0.10-1.20 [facility] Comment on above: Performed By: #### B MP, LIVP, LIP #### [facility] [address] [place] [address] [employer] Installer: Ion Jasso MD Monocytes/100 WBC (Bld) 15 % High 3-12 [facility] Comment on above: Performed By: #### B MP, LIVP, LIP #### [facility] [address] [place], [place] [address] [employer] Installer: Ion Jasso MD Neutrophil (Seg) 59 % Normal 36-65 [facility] Comment on above: Performed By: #### B MP, LIVP, LIP #### [address] [place], [place] [address] [employer]er: Ion Jasso MD NRBC Automated 0.0 per 100 WBC Normal 0.0 [facility] Comment on above: Performed By: #### B MP, LIVP, LIP #### [facility] [address] [place], [facility]83 [employer] Installer: Ion Jasso MD Platelet mean volume (Bld) [Entitic vol] 9.8 fL Normal 8.1-13.5 [facility] Comment on above: Performed By: #### B MP, LIVP, LIP #### [facility] [address] [place] [address] [employer] Installer: Ion Jasso MD Platelets (Bld) [#/Vol] 144 10*3/uL Normal 138-453 [facility] Comment on above: Performed By: #### B MP, LIVP, LIP #### [facility] [address] [place], [place] [id number] [employer] Installer: Ion Jasso MD RBC (Bld) [#/Vol] 3.59 10*6/uL Low 3.95-5.11 [facility] Comment on above: Performed By: #### B MP, LIVP, LIP #### [facility] [address] [place], [place] [address] [employer] Installer: Ion Jasso MD WBC (Bld) [#/Vol] 6.5 10*3/uL Normal 3.5-11.3 [facility] Comment on above: Performed By: #### B MP, LIVP, LIP #### [address] [place], [place] [address]83 [employer] Installer: Ion Jasso MD Comp Metabolic Pr/rfx MGon 0 - Albumin [Mass/Vol] 3.5 g/dL Normal 3.5-5.2 [facility] Comment on above: Performed By: #### B MP, LIVP, LIP #### [facility] [address] [place], [place] [address] [employer] Installer: Ion Jasso MD Albumin/Glob Ratio 1.7 Normal 1.0-2.5 [facility] Comment on above: Performed By: #### B MP, LIVP, LIP #### [facility] [address] [place], [place] [address] [employer] Installer: Ion Jasso MD Alkaline Phos 186 U/L High 35-104 [facility] Comment on above: Performed By: #### B MP, LIVP, LIP #### [facility] [address] [place], [place] [phone] [employer] Installer: Ion Jasso MD ALT [Catalytic activity/Vol] 79 U/L High 10-35 [facility] Comment on above: Performed By: #### B MP, LIVP, LIP #### [facility] [address] [place] [address] [address] [place], [place] [id number] [employer] Installer: Ion Jasso MD Anion gap [Moles/Vol] 12 mmol/L Normal 9-16 [facility] Comment on above: Performed By: #### B MP, LIVP, LIP #### [facility] [address] [place] [address] [place] [place], [place] [address] [employer] Installer: Ion Jasso MD AST [Catalytic activity/Vol] 62 U/L [facility] 10-35 [facility] Comment on above: Performed By: #### B MP, LIVP, LIP #### [address] [place], [place] [phone] [employer] Installer: Ion Jasso MD Bilirubin [Mass/Vol] 0.2 mg/dL Normal 0.00-1.20 [facility] Comment on above: Performed By: #### B MP, LIVP, LIP #### [address] [place], [place] [address] [employer] Installer: Ion Jasso MD BUN/CRE Ratio 5 Low 9-20 [facility] Comment on above: Performed By: #### B MP, LIVP, LIP #### [address] [place], [place] [address]83 [employer] Installer: Ion Jasso MD Calcium [Mass/Vol] 8.9 mg/dL Normal 8.6-10.4 [facility] Comment on above: Performed By: #### B MP, LIVP, LIP #### [address] [place] [address] [employer] Installer: Ion Jasso MD Chloride [Moles/Vol] 107 mmol/L Normal 98-107 [facility] Comment on above: Performed By: #### B MP, LIVP, LIP #### [facility] [address] [place] [address] [employer] Installer: Ion Jasso MD CO2 [Moles/Vol] 22 mmol/L Normal 20-31 [facility] Comment on above: Performed By: #### B MP LIVP, LIP #### [facility] [address] [place] [address] [employer] Installer: Ion Jasso MD Creatinine [Mass/Vol] 0.6 mg/dL Normal 0.50-0.90 [facility] Comment on above: Performed By: #### B MP LIVP, LIP #### [facility] [address] [place] [address] [employer] Installer: Ion Jasso MD GFR/1.73 sq M.predicted among [...] MP LIVP, LIP #### [facility] [address] [place] [address] [employer] Installer: Ion Jasso MD Glucose [Mass/Vol] 98 mg/dL Normal 74-99 [facility] Comment on above: Performed By: #### B MP LIVP, LIP #### [facility] [address] [place] [address] [employer] Installer: Ion Jasso MD Potassium [Moles/Vol] 3.7 mmol/L Normal 3.7-5.3 [facility] Comment on above: Performed By: #### B MP LIVP, LIP #### [facility] [address] [place] [address] [employer] Installer: Ion Jasso MD Protein [Mass/Vol] 5.6 g/dL Low 6.6-8.7 [facility] Comment on above: Performed By: #### B MP, LIVP, LIP #### [facility] [address] [place] [address] [employer] Installer: Ion Jasso MD Sodium [Moles/Vol] 141 mmol/L Normal 136-145 [facility] Comment on above: Performed By: #### B MP, LIVP, LIP #### [facility] [address] [place] [address] [employer] Installer: Ion Jasso MD Urea nitrogen [Mass/Vol] 3 mg/dL Low 6-20 [facility] Comment on above: Performed By: #### B MP, LIVP, LIP #### [facility] [address] [place] [address] [employer] Installer: Ion Jasso MD Comprehensive Metabolic Pane l w/ Reflex to [facility] 11-09-2024 Albumin [Mass/Vol] 3.5 g/dL 3.5 - 5.2 g/dL [facility] Albumin/Globulin [Mass ratio] 1.7 {ratio} 1.0 - 2.5 [facility] ALP [Catalytic activity/Vol] 186 U/L High 35 - 104 U/L [facility] ALT [Catalytic activity/Vol] 79 U/L High 10 - 35 U/L [facility] Anion gap [Moles/Vol] 12 mmol/L 9 - 16 mmol/L [facility] AST [Catalytic activity/Vol] 62 U/L High 10 - 35 U/L [facility] Bilirubin [Mass/Vol] 0.2 mg/dL 0.00 - 1.20 mg/dL [facility] Calcium [Mass/Vol] 8.9 mg/dL 8.6 - 10. 4 mg/dL [facility] Chloride [Moles/Vol] 107 mmol/L 98 - 10 7 mmol/L [facility] CO2 [Moles/Vol] 22 mmol/L 20 - 31 mmol/L [facility] Creatinine [Mass/Vol] 0.6 mg/dL 0.50 - 0.90 mg/dL [facility] Kaylyn Prather - PINF [facility] Comment on above: These results are [...] [Mass/Vol] 98 mg/dL 74 - 99 mg/dL [facility] Interpretation and review of laboratory results Abnormal [facility] Potassium [Moles/Vol] 3.7 mmol/L 3.7 - 5.3 mmol/L [facility] Protein [Mass/Vol] 5.6 g/dL Low 6.6 - 8.7 g/dL [facility] Sodium [Moles/Vol] 141 mmol/L 136 - 145 mmol/L [facility] Urea nitrogen [Mass/Vol] 3 mg/dL Low 6 - 20 mg/dL [facility] Urea nitrogen/Creatinine [Mass ratio] 5 mg/mg Low 9 - 20 [facility] Lipaseon 11-09-2024 Lipase [Catalytic activity/Vol] 19 U/L 13 - 60 U/L [facility] Lipase [Catalytic activity/Vol] 19 U/L Normal 13-60 [facility] Comment on above: Performed By: #### B MP, LIVP, LIP #### [facility] [address] [place] [address] [employer] Installer: Ion Jasso MD No Panel Informationon 11-09 [facility] CBC auto differentialon Basophils (Bld) [#/Vol] 0.04 10*3/uL [facility] Basophils/100 WBC (Bld) 1 % 0 - 2 % [facility] Eosinophils (Bld) [#/Vol] 0.13 10*3/uL [facility] Eosinophils/100 WBC (Bld) 2 % 1 - 4 % [facility] Erythrocyte distribution width (RBC) [Ratio] 12.5 % 11.8 - 14.4 % [facility] Hematocrit (Bld) [Volume fraction] 35.6 % Low 36.3 - 47.1 % [facility] Hemoglobin (Bld) [Mass/Vol] 11.9 g/dL 11.9 - 15.1 g/dL [facility] Immature granulocytes (Bld) [#/Vol] [facility] Immature granulocytes/100 WBC (Bld) 0 % 0 [facility] Interpretation and review of laboratory results Abnormal [facility] Lymphocytes/100 WBC (Bld) 29 % 24 - 43 % [facility] Lymphocytes/100 WBC (Bld) 1.70 % [facility] MCH (RBC) [Entitic mass] 33.0 pg 25.2 - 33.5 pg [facility] MCHC (RBC) [Mass/Vol] 33.4 g/dL 28.4 - 34.8 g/dL [facility] MCV (RBC) [Entitic vol] 98.6 fL 82.6 - 102.9 fL [facility] Monocytes/100 WBC (Bld) 17 % High 3 - 12 % [facility] Monocytes/100 WBC (Bld) 1.00 % [facility] Neutrophils/100 WBC (Bld) 51 % 36 - 65 % [facility] Nucleated RBC/100 WBC (Bld) [Ratio] 0.0 % 0.0 per 100 WBC [facility] Platelet mean volume (Bld) [Entitic vol] 9.8 fL 8.1 - 13.5 fL [facility] Platelets (Bld) [#/Vol] 153 10*3/uL [facility] RBC (Bld) [#/Vol] 3.61 10*6/uL Low 3.95 - 5.11 m/uL [facility] Segmented neutrophils/100 WBC (Bld) 2.91 % [facility] WBC other (Bld) [#/Vol] 5.8 [facility] CBC with Diffon 11-08-2024 Abs. Basophil 0.04 k/uL Normal 0.00-0.20 [facility] Comment on above: Performed By: #### B MP, LIVP, LIP #### [facility] [address] [address] [employer]er: Ion Jasso MD Abs.Imm.Granulocyte <0.03 Normal 0.00-0.30 [facility] Comment on above: Performed By: #### B MP, LIVP, LIP #### [address] [place] [address] [employer]er: Ion Jasso MD Abs.Neutrophil (Seg) 2.91 k/uL Normal 1.50-8.10 [facility] Comment on above: Performed By: #### B MP, LIVP, LIP #### [address] [place], [place] [address] [employer]er: Ion Jasso MD Basophils/100 WBC (Bld) 1 % Normal 0-2 [facility] Comment on above: Performed By: #### B MP, LIVP, LIP #### [address] [place] [address] [employer]er: Ion Jasso MD Eosinophils (Bld) [#/Vol] 0.13 10*3/uL Normal 0.00-0.44 [facility] Comment on above: Performed By: #### B MP, LIVP, LIP #### [address] [place] [address] [employer]er: Ion Jasso MD Eosinophils/100 WBC (Bld) 2 % Normal 1-4 [facility] Comment on above: Performed By: #### B MP, LIVP, LIP #### [facility] [address] [place], [place] [id number] [employer]er: Ion Jasso MD Erythrocyte distribution width (RBC) [Ratio] 12.5 % Normal 11.8-14.4 [facility] Comment on above: Performed By: #### B MP, LIVP, LIP #### [facility] [address] [place], [place] [id number] [employer]er: Ion Jasso MD Hematocrit (Bld) [Volume fraction] 35.6 % Low 36.3-47.1 [facility] Comment on above: Performed By: #### B MP, LIVP, LIP #### [address] [place], [place] [id number] [employer]er: Ion Jasso MD Hemoglobin (Bld) [Mass/Vol] 11.9 g/dL Normal 11.9-15.1 [facility] Comment on above: Performed By: #### B MP, LIVP, LIP #### [address] [place], [facility]83 [employer]er: Ion Jasso MD Immature granulocytes/100 WBC (Bld) 0 % Normal 0 [facility] Comment on above: Performed By: #### B MP, LIVP, LIP #### [address] [place], [facility]83 [employer]er: Ion Jasso MD Lymphocytes (Bld) [#/Vol] 1.70 10*3/uL Normal 1.10-3.70 [facility] Comment on above: Performed By: #### B MP, LIVP, LIP #### [address] [place], [place] [address]83 [employer]er: Ion Jasso MD Lymphocytes/100 WBC (Bld) 29 % Normal 24-43 [facility] Comment on above: Performed By: #### B MP, LIVP, LIP #### [address] [place] 8658283 [employer]er: Ion Jasso MD MCH (RBC) [Entitic mass] 33.0 pg Normal 25.2-33.5 [facility] Comment on above: Performed By: #### B MP, LIVP, LIP #### [facility] [address] [place] [address] Dr. [place] [facility]83 [employer]er: Ion Jasso MD MCHC (RBC) [Mass/Vol] 33.4 g/dL Normal 28.4-34.8 [facility] Comment on above: Performed By: #### B MP, LIVP, LIP #### [address] [place], [facility]83 [employer]er: Ion Jasso MD MCV (RBC) [Entitic vol] 98.6 fL Normal 82.6-102.9 [facility] Comment on above: Performed By: #### B MP, LIVP, LIP #### [address] [place], [facility]83 [employer]er: Ion Jasso MD Monocytes (Bld) [#/Vol] 1.00 10*3/uL Normal 0.10-1.20 [facility] Comment on above: Performed By: #### B MP, LIVP, LIP #### [address] [place], [facility]83 [employer]er: Ion Jasso MD Monocytes/100 WBC (Bld) 17 % High 3-12 [facility] Comment on above: Performed By: #### B MP, LIVP, LIP #### [address] [place], [facility]83 [employer]er: Ion Jasso MD Neutrophil (Seg) 51 % Normal 36-65 [facility] Comment on above: Performed By: #### B MP, LIVP, LIP #### [address] [place] [address] [employer]: Ion Jasso MD NRBC Automated 0.0 per 100 WBC Normal 0.0 [facility] Comment on above: Performed By: #### B MP, LIVP, LIP #### [address] [place] [address] [employer]er: Ion Jasso MD Platelet mean volume (Bld) [Entitic vol] 9.8 fL Normal 8.1-13.5 [facility] Comment on above: Performed By: #### B MP, LIVP, LIP #### [address] [place] [address] [employer]er: Ion Jasso MD Platelets (Bld) [#/Vol] 153 10*3/uL Normal 138-453 [facility] Comment on above: Performed By: #### B MP, LIVP, LIP #### [address] [place] [address] [employer]er: Ion Jasso MD RBC (Bld) [#/Vol] 3.61 10*6/uL Low 3.95-5.11 [facility] Comment on above: Performed By: #### B MP, LIVP, LIP #### [address] [place], [place] 6152283 [employer]er: Ion Jasso MD WBC (Bld) [#/Vol] 5.8 10*3/uL Normal 3.5-11.3 [facility] Comment on above: Performed By: #### B MP, LIVP, LIP #### [address] [place] [address] [employer]er: Ion Jasso MD Comp Metabolic Pr/rfx MGon 0 11-08-2024 Albumin [Mass/Vol] 3.6 g/dL Normal 3.5-5.2 [facility] Comment on above: Performed By: #### B MP, LIVP, LIP #### [address] [place], [place] 2004383 [employer]er: Ion Jasso MD Albumin/Glob Ratio 1.7 Normal 1.0-2.5 [facility] Comment on above: Performed By: #### B MP, LIVP, LIP #### [address] [place], [place] 2465383 [employer]er: Ion Jasso MD Alkaline Phos 203 U/L High 35-104 [facility] Comment on above: Performed By: #### B MP, LIVP, LIP #### [address] [place], [place] 3245683 [employer]er: Ion Jasso MD ALT [Catalytic activity/Vol] 126 U/L High 10-35 [facility] Comment on above: Performed By: #### B MP, LIVP, LIP #### [facility] [address] [place] [address] Dr. [place], [place] [phone] [employer]er: Ion Jasso MD Anion gap [Moles/Vol] 11 mmol/L Normal 9-16 [facility] Comment on above: Performed By: #### B MP, LIVP, LIP #### [address] [place], [place] 1362183 [employer]er: Ion Jasso MD AST [Catalytic activity/Vol] 171 U/L High 10-35 [facility] Comment on above: Performed By: #### B MP, LIVP, LIP #### [facility] [address] [place] [address] Dr. [place], [place] 0101883 [employer]er: Ion Jasso MD Bilirubin [Mass/Vol] mg/dL Normal 0.00-1.20 [facility] Comment on above: Performed By: #### B MP, LIVP, LIP #### [facility] [address] [place] [address] Dr. [place], [place] 1737583 [employer]er: Ion Jasso MD BUN/CRE Ratio 5 Low 9-20 [facility] Comment on above: Performed By: #### B MP, LIVP, LIP #### [facility] [address] [place], [place] 0129783 [employer]er: oIn Jasso MD Calcium [Mass/Vol] 9.0 mg/dL Normal 8.6-10.4 [facility] Comment on above: Performed By: #### B MP, LIVP, LIP #### [facility] [address] [place], [place] [address]28[address]83 [employer]er: Ion Jasso MD Chloride [Moles/Vol] 107 mmol/L Normal 98-107 [facility] Comment on above: Performed By: #### B MP, LIVP, LIP #### [facility] [address] [place], [place] 5446083 [employer]er: Ion Jasso MD CO2 [Moles/Vol] 21 mmol/L Normal 20-31 [facility] Comment on above: Performed By: #### B MP, LIVP, LIP #### [facility] [address] [place], [place] [address]16883 [employer] Installer: Ion Jasso MD Creatinine [Mass/Vol] 0.8 mg/dL Normal 0.50-0.90 [facility] Comment on above: Performed By: #### B MP, LIVP, LIP #### [facility] [address] [place], [place] 8736383 [employer] Installer: Ion Jasso MD GFR/1.73 sq M.predicted among [...] By: #### B LIZY LIVP, LIP #### [facility] [address] [place], [place] 8333483 [employer]er: Ion Jasso MD Glucose [Mass/Vol] 96 mg/dL Normal 74-99 [facility] Comment on above: Performed By: #### B MP LIVP, LIP #### [facility] [address] [place], [place] 1986583 [employer]er: Ion Jasso MD Potassium [Moles/Vol] 4.2 mmol/L Normal 3.7-5.3 [facility] Comment on above: Performed By: #### B LIZY LIVP, LIP #### [address] [place], [place] 3127883 [employer]er: Ion Jasso MD Protein [Mass/Vol] 5.6 g/dL Low 6.6-8.7 [facility] Comment on above: Performed By: #### B LIZY LIVP, LIP #### [address] [place], [place] 4086683 [employer]er: Ion Jasso MD Sodium [Moles/Vol] 139 mmol/L Normal 136-145 [facility] Comment on above: Performed By: #### B LIZY LIVP, LIP #### [facility] [address] [place] [address] Dr. [place], [place] 9160783 [employer]er: Ion Jasso MD Urea nitrogen [Mass/Vol] 4 mg/dL Low 6-20 [facility] Comment on above: Performed By: #### B MP LIVP, LIP #### [facility] [address] [place], [place] [address]334183 [employer]er: Ion Jasso MD Comprehensive Metabolic Pane l w/ Reflex to MGon 11-08-2024 Albumin [Mass/Vol] 3.6 g/dL 3.5 - 5.2 g/dL [facility] Albumin/Globulin [Mass ratio] 1.7 {ratio} 1.0 - 2.5 [facility] ALP [Catalytic activity/Vol] 203 U/L High 35 - 104 U/L [facility] ALT [Catalytic activity/Vol] 126 U/L High 10 - 35 U/L [facility] Anion gap [Moles/Vol] 11 mmol/L 9 - 16 mmol/L [facility] AST [Catalytic activity/Vol] 171 U/L High 10 - 35 U/L [facility] Bilirubin [Mass/Vol] mg/dL 0.00 - 1.20 mg/dL [facility] Calcium [Mass/Vol] 9.0 mg/dL 8.6 - 10. 4 mg/dL [facility] Chloride [Moles/Vol] 107 mmol/L 98 - 10 7 mmol/L [facility] CO2 [Moles/Vol] 21 mmol/L 20 - 31 mmol/L [facility] Creatinine [Mass/Vol] 0.8 mg/dL 0.50 - 0.90 mg/dL [facility] Est, Glom Filt Rate - PINF [facility] Comment on above: These [...] [Mass/Vol] 96 mg/dL 74 - 99 mg/dL [facility] Interpretation and review of laboratory results Abnormal [facility] Potassium [Moles/Vol] 4.2 mmol/L 3.7 - 5.3 mmol/L [facility] Protein [Mass/Vol] 5.6 g/dL Low 6.6 - 8.7 g/dL [facility] Sodium [Moles/Vol] 139 mmol/L 136 - 145 mmol/L [facility] Urea nitrogen [Mass/Vol] 4 mg/dL Low 6 - 20 mg/dL [employer] Urea nitrogen/Creatinine [Mass ratio] 5 mg/mg Low 9 - 20 [facility] E[facility] 12 leadOrdered By: Brandon Cespedes on 11-08-2024 Atrial Rate 78 BPM [employer] Work Phone: P Chester 54 degrees [employer] Work Phone: P-R Interval 136 ms [employer] Work Phone: Q-T Interval 356 ms [employer] Work Phone: QRS Duration 74 ms [employer] Work Phone: QTc Calculation (Bazett) 405 ms [employer] Work Phone: R Chester 30 degrees [employer] Work Phone: T Chester 40 degrees [employer] Work Phone: Ventricular Rate 78 BPM [facility] [employer] Work Phone: [employer] Work Phone: EKG 12 leadon 11-08-2024 Normal sinus rhythm Normal ECG When compared with ECG of 07-Jan-2024 14:42, No significant change was found Confirmed by Tri Cespedes ([id number]) on 11/08/2024 10:43:20 AM [facility] RADIOLOGY Tri Cespedes MD - 11/08/2024 Normal sinus rhythm Normal ECG When compared with ECG of 07-Jan-2024 14:42, No significant change was found Confirmed by Tri Cespedes ([id number]) on 11/08/2024 10:43:20 AM [facility] [employer] Lipaseon 11-08-2024 Lipase [Catalytic activity/Vol] 30 U/L 13 - 60 U/L [facility] [employer] Lipase [Catalytic activity/Vol] 30 U/L Normal 13-60 [facility] Comment on above: Performed By: #### B MP, LIVP, LIP #### [facility] [address] [place] [address] [employer] Installer: Ion Jasso MD MR Abdomen WO and [...] status post cholecystectomy. 5. Prominent duodenal diverticula. [facility] EXAMINATION: MRI OF THE [...] provided for review. These images were reviewed. [facility] Alexi Olivo MD - [...] status post cholecystectomy. 5. Prominent duodenal diverticula. [facility] Radiology Study observation (narrative) [facility] MR Abdomen WO and W contrast IVOrdered By: Alexi Olivo on 11-08-2024 [facility] Work Phone: MRI ABDOMEN W WO [...] [facility] Panel Informationon 11-08 [facility] CBC auto differentialon Basophils (Bld) [#/Vol] 0.04 10*3/uL [facility] Immature granulocytes (Bld) [#/Vol] [facility] Interpretation and review of laboratory results Abnormal [facility] Lymphocytes/100 WBC (Bld) 1.93 % [facility] Monocytes/100 WBC (Bld) 0.78 % [facility] Neutrophils/100 WBC (Bld) 59 % 36 - 65 % [facility] Nucleated RBC/100 WBC (Bld) [Ratio] 0.0 % 0.0 per 100 WBC [facility] Segmented neutrophils/100 WBC (Bld) 4.22 % [facility] WBC other (Bld) [#/Vol] 7.1 [facility] CBC with Diffon 11-07-2024 Abs. Basophil 0.04 k/uL Normal 0.00-0.20 [facility] Comment on above: Performed By: #### B MP, LIVP, LIP #### [address] [place] [id number] [employer] Installer: Ion Jasso MD Abs.Imm.Granulocyte <0.03 Normal 0.00-0.30 [facility] Comment on above: Performed By: #### B MP, LIVP, LIP #### [address] [place], [place] [address] [employer] Installer: Ion Jasso MD Abs.Neutrophil (Seg) 4.22 k/uL Normal 1.50-8.10 [facility] Comment on above: Performed By: #### B MP, LIVP, LIP #### [address] [place], [place] [address] [employer] Installer: Ion Jasso MD Basophils/100 WBC (Bld) 1 % Normal 0-2 [facility] Comment on above: Performed By: #### B MP, LIVP, LIP #### [address] [place], [place] [address] [employer] Installer: Ion Jasso MD Eosinophils (Bld) [#/Vol] 0.15 10*3/uL Normal 0.00-0.44 [facility] Comment on above: Performed By: #### B MP, LIVP, LIP #### [address] [place], [facility]83 [employer] Installer: Ion Jasso MD Eosinophils/100 WBC (Bld) 2 % Normal 1-4 [facility] Comment on above: Performed By: #### B MP, LIVP, LIP #### [address] [place], [place] 3036883 [employer] Installer: Ion Jasso MD Erythrocyte distribution width (RBC) [Ratio] 12.7 % Normal 11.8-14.4 [facility] Comment on above: Performed By: #### B MP, LIVP, LIP #### [address] [place] [address] [employer] Installer: Ion Jasso MD Hematocrit (Bld) [Volume fraction] 39.3 % Normal 36.3-47.1 [facility] Comment on above: Performed By: #### B MP, LIVP, LIP #### [address] [place], [place] [address] [employer] Installer: Ion Jasso MD Hemoglobin (Bld) [Mass/Vol] 12.9 g/dL Normal 11.9-15.1 [facility] Comment on above: Performed By: #### B MP, LIVP, LIP #### [address] [place], [place] 4298083 [employer] Installer: Ion Jasso MD Immature granulocytes/100 WBC (Bld) 0 % Normal 0 [facility] Comment on above: Performed By: #### B MP, LIVP, LIP #### [address] [place] [address] [employer]er: Ion Jasso MD Lymphocytes (Bld) [#/Vol] 1.93 10*3/uL Normal 1.10-3.70 [facility] Comment on above: Performed By: #### B MP, LIVP, LIP #### [address] [place], [place] [address]340183 [employer]er: Ion Jasso MD Lymphocytes/100 WBC (Bld) 27 % Normal 24-43 [facility] Comment on above: Performed By: #### B MP, LIVP, LIP #### [address] [place], [place] 5516983 [employer] Installer: Ion Jasso MD MCH (RBC) [Entitic mass] 33.0 pg Normal 25.2-33.5 [facility] Comment on above: Performed By: #### B MP, LIVP, LIP #### [address] [place] [address] [employer] Installer: Ion Jasso MD MCHC (RBC) [Mass/Vol] 32.8 g/dL Normal 28.4-34.8 [facility] Comment on above: Performed By: #### B MP, LIVP, LIP #### [address] [place], [facility]83 [employer] Installer: Ion Jasso MD MCV (RBC) [Entitic vol] 100.5 fL Normal 82.6-102.9 [facility] Comment on above: Performed By: #### B MP, LIVP, LIP #### [address] [place], [place] [address]69483 [employer]er: Ion Jasso MD Monocytes (Bld) [#/Vol] 0.78 10*3/uL Normal 0.10-1.20 [facility] Comment on above: Performed By: #### B MP, LIVP, LIP #### [address] [place] [address] [employer]er: Ion Jasso MD Monocytes/100 WBC (Bld) 11 % Normal 3-12 [facility] Comment on above: Performed By: #### B MP, LIVP, LIP #### [address] [place], [place] 6470783 [employer] Installer: Ion Jasso MD Neutrophil (Seg) 59 % Normal 36-65 [facility] Comment on above: Performed By: #### B MP, LIVP, LIP #### [address] [place], [place] 3431383 [employer]er: Ion Jasso MD NRBC Automated 0.0 per 100 WBC Normal 0.0 [facility] Comment on above: Performed By: #### B MP, LIVP, LIP #### [facility] [address] [place], [place] [address]80383 [employer] Installer: Ion Jasso MD Platelet mean volume (Bld) [Entitic vol] 10.4 fL Normal 8.1-13.5 [facility] Comment on above: Performed By: #### B MP, LIVP, LIP #### [address] [place], [place] 3356183 [employer]er: Ion Jasso MD Platelets (Bld) [#/Vol] 177 10*3/uL Normal 138-453 [facility] Comment on above: Performed By: #### B MP, LIVP, LIP #### [address] [place] [address] [employer]er: Ion Jasso MD RBC (Bld) [#/Vol] 3.91 10*6/uL Low 3.95-5.11 [facility] Comment on above: Performed By: #### B MP, LIVP, LIP #### [address] [place], [place] [address]201983 [employer]er: Ion Jasso MD WBC (Bld) [#/Vol] 7.1 10*3/uL Normal 3.5-11.3 [facility] Comment on above: Performed By: #### B MP, LIVP, LIP #### [address] [place] [address] [employer]er: Ion Jasso MD Comp Metabolic Pr/rfx MGon 0 9-01-2025 Albumin [Mass/Vol] 3.9 g/dL Normal 3.5-5.2 [facility] Comment on above: Performed By: #### B MP, LIVP, LIP #### [facility] [address] [place], [place] [address]109783 [employer] Installer: Ion Jasso MD Albumin/Glob Ratio 1.7 Normal 1.0-2.5 [facility] Comment on above: Performed By: #### B MP, LIVP, LIP #### [facility] [address] [place], [place] 3222583 [employer]er: Ion Jasso MD Alkaline Phos 143 U/L High 35-104 [facility] Comment on above: Performed By: #### B MP, LIVP, LIP #### [facility] [address] [place], [place] [address]69083 [employer] Installer: Ion Jasso MD ALT [Catalytic activity/Vol] 42 U/L High 10-35 [facility] Comment on above: Performed By: #### B MP, LIVP, LIP #### [address] [place], [place] 3798383 [employer]er: Ion Jasso MD Anion gap [Moles/Vol] 10 mmol/L Normal 9-16 [facility] Comment on above: Performed By: #### B MP, LIVP, LIP #### [facility] [address] [place], [place] [address]49783 [employer]er: Ion Jasso MD AST [Catalytic activity/Vol] 145 U/L High 10-35 [facility] Comment on above: Performed By: #### B MP, LIVP, LIP #### [facility] [address] [place] [address] [employer]er: Ion Jasso MD Bilirubin [Mass/Vol] 0.3 mg/dL Normal 0.00-1.20 [facility] Comment on above: Performed By: #### B MP, LIVP, LIP #### [facility] [address] [place], [place] [address]83 [employer]er: Ion Jasso MD BUN/CRE Ratio 8 Low 9-20 [facility] Comment on above: Performed By: #### B MP, LIVP, LIP #### [facility] [address] [place], [place] 2540783 [employer] Installer: Ion Jasso MD Calcium [Mass/Vol] 9.1 mg/dL Normal 8.6-10.4 [facility] Comment on above: Performed By: #### B MP, LIVP, LIP #### [facility] [address] [place], [place] [address]83 [employer]er: Ion Jasso MD Chloride [Moles/Vol] 106 mmol/L Normal 98-107 [facility] Comment on above: Performed By: #### B MP, LIVP, LIP #### [facility] [address] [place], [place] 5153783 [employer]er: Ion Jasso MD CO2 [Moles/Vol] 23 mmol/L Normal 20-31 [facility] Comment on above: Performed By: #### B MP, LIVP, LIP #### [facility] [address] [place], [place] [address]16883 [employer]er: Ion Jasso MD Creatinine [Mass/Vol] 0.8 mg/dL Normal 0.50-0.90 [facility] Comment on above: Performed By: #### B MP, LIVP, LIP #### [facility] [address] [place], [place] [address]344883 [employer]er: Ion Jasso MD GFR/1.73 sq M.predicted among [...] By: #### B MP, LIVP, LIP #### [facility] [address] [place] [address] [employer]er: Ion Jasso MD Glucose [Mass/Vol] 92 mg/dL Normal 74-99 [facility] Comment on above: Performed By: #### B MP, LIVP, LIP #### [address] [place], [place] 4003183 [employer]er: Ion Jasso MD Potassium [Moles/Vol] 4.5 mmol/L Normal 3.7-5.3 [facility] Comment on above: Performed By: #### B MP LIVP, LIP #### [address] [place], [place] 2573683 [employer]er: Ion Jasso MD Protein [Mass/Vol] 6.1 g/dL Low 6.6-8.7 [facility] Comment on above: Performed By: #### B MP LIVP, LIP #### [facility] [address] [place] [address] Dr. [place], [place] 5333883 [employer]er: Ion Jasso MD Sodium [Moles/Vol] 139 mmol/L Normal 136-145 [facility] Comment on above: Performed By: #### B MP, LIVP, LIP #### [address] [place] [address] [employer]er: Ion Jasso MD Urea nitrogen [Mass/Vol] 6 mg/dL Normal 6-20 [facility] Comment on above: Performed By: #### B MP, LIVP, LIP #### [facility] [address] [place] [address] [employer]er: Ion Jasso MD Comprehensive Metabolic Pane l w/ Reflex to on 11-07-2024 Albumin [Mass/Vol] 3.9 g/dL 3.5 - 5.2 g/dL [facility] Albumin/Globulin [Mass ratio] 1.7 {ratio} 1.0 - 2.5 [facility] ALP [Catalytic activity/Vol] 143 U/L High 35 - 104 U/L [facility] ALT [Catalytic activity/Vol] 42 U/L High 10 - 35 U/L [facility] Anion gap [Moles/Vol] 10 mmol/L 9 - 16 mmol/L [facility] AST [Catalytic activity/Vol] 145 U/L High 10 - 35 U/L [facility] Bilirubin [Mass/Vol] 0.3 mg/dL 0.00 - 1.20 mg/dL [facility] Calcium [Mass/Vol] 9.1 mg/dL 8.6 - 10. 4 mg/dL [facility] Chloride [Moles/Vol] 106 mmol/L 98 - 10 7 mmol/L [facility] CO2 [Moles/Vol] 23 mmol/L 20 - 31 mmol/L [facility] Creatinine [Mass/Vol] 0.8 mg/dL 0.50 - 0.90 mg/dL [facility] Est, Glom Filt Rate - PINF [facility] Comment on above: These [...] [Mass/Vol] 92 mg/dL 74 - 99 mg/dL [facility] Potassium [Moles/Vol] 4.5 mmol/L 3.7 - 5.3 mmol/L [facility] Protein [Mass/Vol] 6.1 g/dL Low 6.6 - 8.7 g/dL [facility] Sodium [Moles/Vol] 139 mmol/L 136 - 145 mmol/L [facility] Urea nitrogen [Mass/Vol] 6 mg/dL 6 - 20 mg/dL [facility] Urea nitrogen/Creatinine [Mass ratio] 8 mg/mg Low 9 - 20 [facility] EKG Rhythm Stripon [facility] Lipaseon 11-07-2024 Lipase [Catalytic activity/Vol] 285 U/L High 13 - 60 U/L [facility] Lipase [Catalytic activity/Vol] 285 U/L High 13-60 [facility] Comment on above: Performed By: #### B MP, LIVP, LIP #### [facility] [address] [place] [address] [employer] Installer: Ion Jasso MD No Panel Informationon 11-07 Interpretation and review of laboratory results Abnormal [facility] CBC with Auto Differentialon 11-06-2024 Basophils (Bld) [#/Vol] 0.08 10*3/uL [facility] Basophils/100 WBC (Bld) 1 % 0 - 2 % [facility] Eosinophils (Bld) [#/Vol] 0.10 10*3/uL [facility] Eosinophils/100 WBC (Bld) 1 % 1 - 4 % [facility] Erythrocyte distribution width (RBC) [Ratio] 12.2 % 11.8 - 14.4 % [facility] Hematocrit (Bld) [Volume fraction] 43.1 % 36.3 - 47.1 % [facility] Hemoglobin (Bld) [Mass/Vol] 14.5 g/dL 11.9 - 15.1 g/dL [facility] Immature granulocytes (Bld) [#/Vol] [facility] Immature granulocytes/100 WBC (Bld) 0 % 0 [facility] Interpretation and review of laboratory results Abnormal [facility] Lymphocytes/100 WBC (Bld) 21 % Low 24 - 43 % [facility] Lymphocytes/100 WBC (Bld) 1.66 % [facility] MCH (RBC) [Entitic mass] 32.9 pg 25.2 - 33.5 pg [facility] MCHC (RBC) [Mass/Vol] 33.6 g/dL 28.4 - 34.8 g/dL [facility] MCV (RBC) [Entitic vol] 97.7 fL 82.6 - 102.9 fL [facility] Monocytes/100 WBC (Bld) 12 % 3 - 12 % [facility] Monocytes/100 WBC (Bld) 0.96 % [facility] Neutrophils/100 WBC (Bld) 65 % 36 - 65 % [facility] Nucleated RBC/100 WBC (Bld) [Ratio] 0.0 % 0.0 per 100 WBC [facility] Platelet mean volume (Bld) [Entitic vol] 9.5 fL 8.1 - 13.5 fL [facility] Platelets (Bld) [#/Vol] 224 10*3/uL [facility] RBC (Bld) [#/Vol] 4.41 10*6/uL 3.95 - 5.11 m/uL [facility] Segmented neutrophils/100 WBC (Bld) 4.97 % [facility] WBC other (Bld) [#/Vol] 7.8 [facility] CBC with Diffon 11-06-2024 Abs. Basophil 0.08 k/uL Normal 0.00-0.20 [facility] Comment on above: Performed By: #### L TORIBIO, WALTER, CP #### [facility] [address] [place] [address] [employer] Installer: Ion Jasso MD Abs.Imm.Granulocyte <0.03 Normal 0.00-0.30 [facility] Comment on above: Performed By: #### L IP, CDP, CP #### [facility] [address] [place] [address] [employer] Installer: Ion Jasso MD Abs.Neutrophil (Seg) 4.97 k/uL Normal 1.50-8.10 [facility] Comment on above: Performed By: #### L IP CDP, CP #### [address] [place], [facility]83 [employer] Installer: Ion Jasso MD Basophils/100 WBC (Bld) 1 % Normal 0-2 [facility] Comment on above: Performed By: #### L IP, CDP, CP #### [address] [place], [facility]83 [employer] Installer: Ion Jasso MD Eosinophils (Bld) [#/Vol] 0.10 10*3/uL Normal 0.00-0.44 [facility] Comment on above: Performed By: #### L IP, CDP, CP #### [address] [place], [place] [address] [employer] Installer: Ion Jasso MD Eosinophils/100 WBC (Bld) 1 % Normal 1-4 [facility] Comment on above: Performed By: #### L TORIBIO CDP, CP #### [address] [place], [facility]83 [employer] Installer: Ion Jasso MD Erythrocyte distribution width (RBC) [Ratio] 12.2 % Normal 11.8-14.4 [facility] Comment on above: Performed By: #### L TORIBIO CDP, CP #### [address] [place], [facility]83 [employer] Installer: Ion Jasso MD Hematocrit (Bld) [Volume fraction] 43.1 % Normal 36.3-47.1 [facility] Comment on above: Performed By: #### L IP, CDP, CP #### [address] [place], [facility]83 [employer] Installer: Ion Jasso MD Hemoglobin (Bld) [Mass/Vol] 14.5 g/dL Normal 11.9-15.1 [facility] Comment on above: Performed By: #### L IP, CDP, CP #### [address] [place], [place] [address] [employer] Installer: Ion Jasso MD Immature granulocytes/100 WBC (Bld) 0 % Normal 0 [facility] Comment on above: Performed By: #### L IP, CDP, CP #### [address] [place], [place] [address] [employer] Installer: Ion Jasso MD Lymphocytes (Bld) [#/Vol] 1.66 10*3/uL Normal 1.10-3.70 [facility] Comment on above: Performed By: #### L IP, CDP, CP #### [address] [place] [address] [employer]er: Ion Jasso MD Lymphocytes/100 WBC (Bld) 21 % Low 24-43 [facility] Comment on above: Performed By: #### L IP, CDP, CP #### [address] [place], [place] [address] [employer] Installer: Ion Jasso MD MCH (RBC) [Entitic mass] 32.9 pg Normal 25.2-33.5 [facility] Comment on above: Performed By: #### L IP CDP, CP #### [address] [place], [facility]83 [employer] Installer: Ion Jasso MD MCHC (RBC) [Mass/Vol] 33.6 g/dL Normal 28.4-34.8 [facility] Comment on above: Performed By: #### L IP, CDP, CP #### [address] [place] [address] [employer] Installer: Ion Jasso MD MCV (RBC) [Entitic vol] 97.7 fL Normal 82.6-102.9 [facility] Comment on above: Performed By: #### L IP, CDP, CP #### [facility] [address] [place], [place] [id number] [employer] Installer: Ion Jasso MD Monocytes (Bld) [#/Vol] 0.96 10*3/uL Normal 0.10-1.20 [facility] Comment on above: Performed By: #### L IP, CDP, CP #### [facility] [address] [place], [facility]83 [employer] Installer: Ion Jsaso MD Monocytes/100 WBC (Bld) 12 % Normal 3-12 [facility] Comment on above: Performed By: #### L IP, CDP, CP #### [address] [place], [facility]83 [employer] Installer: Ion Jasso MD Neutrophil (Seg) 65 % Normal 36-65 [facility] Comment on above: Performed By: #### L IP, CDP, CP #### [address] [place], [facility]83 [employer] Installer: Ion Jasso MD NRBC Automated 0.0 per 100 WBC Normal 0.0 [facility] Comment on above: Performed By: #### L IP, CDP, CP #### [address] [place], [facility]83 [employer] Installer: Ion Jasso MD Platelet mean volume (Bld) [Entitic vol] 9.5 fL Normal 8.1-13.5 [facility] Comment on above: Performed By: #### L IP, CDP, CP #### [address] [place], [facility]83 [employer] Installer: Ion Jasso MD Platelets (Bld) [#/Vol] 224 10*3/uL Normal 138-453 [facility] Comment on above: Performed By: #### L IP, CDP, CP #### [address] [place], [place] [id number] [employer]er: Ion Jasso MD RBC (Bld) [#/Vol] 4.41 10*6/uL Normal 3.95-5.11 [facility] Comment on above: Performed By: #### L WALTER ROONEY, CP #### [facility] [address] [place] [address] [employer] Installer: Ion Jasso MD WBC (Bld) [#/Vol] 7.8 10*3/uL Normal 3.5-11.3 [facility] Comment on above: Performed By: #### L WALTER RONOEY, CP #### [facility] [address] [place] [address] [employer] Installer: Ion Jasso [facility] Albumin/Globulin [Mass ratio] 1.5 {ratio} 1.0 - 2.5 [facility] ALP [Catalytic activity/Vol] 145 U/L High 35 - 104 U/L [facility] Est, Glom Filt Rate 84 - PINF [facility] Comment on above: These [...] [Mass ratio] 9 mg/mg 9 - 20 [facility] Comp Metabolic Profon 2024 Albumin [Mass/Vol] 4.4 g/dL Normal 3.5-5.2 [facility] Comment on above: Performed By: #### L WALTER ROONEY, CP #### [facility] [address] [place] [address] [employer] Installer: Ion Jasso MD ALT [Catalytic activity/Vol] 13 U/L Normal 10-35 [facility] Comment on above: Performed By: #### L IP, CDP, CP #### [address] [place] [address] [employer] Installer: Ion Jasso MD Anion gap [Moles/Vol] 12 mmol/L Normal 9-16 [facility] Comment on above: Performed By: #### L IP, CDP, CP #### [address] [place], [facility]83 [employer] Installer: Ion Jasso MD AST [Catalytic activity/Vol] 26 U/L Normal 10-35 [facility] Comment on above: Performed By: #### L IP, CDP, CP #### [address] [place] [id number] [employer] Installer: Ion Jasso MD Bilirubin [Mass/Vol] mg/dL Normal 0.00-1.20 [facility] Comment on above: Performed By: #### L IP, CDP, CP #### [address] [place], [facility]83 [employer] Installer: Ion Jasso MD Calcium [Mass/Vol] 10.4 mg/dL Normal 8.6-10.4 [facility] Comment on above: Performed By: #### L IP, CDP, CP #### [address] [place], [facility]83 [employer] Installer: Ion Jasso MD Chloride [Moles/Vol] 104 mmol/L Normal 98-107 [facility] Comment on above: Performed By: #### L IP, CDP, CP #### [address] [place] [address] [employer] Installer: Ion Jasso MD CO2 [Moles/Vol] 24 mmol/L Normal 20-31 [facility] Comment on above: Performed By: #### L IP, CDP, CP #### [address] [place], [place] [address] [employer] Installer: Ion Jasso MD Creatinine [Mass/Vol] 0.8 mg/dL Normal 0.50-0.90 [facility] Comment on above: Performed By: #### L IP, CDP, CP #### [address] [place], [place] [id number] [employer] Installer: Ion Jasso MD Glucose [Mass/Vol] 97 mg/dL Normal 74-99 [facility] Comment on above: Performed By: #### L IP, CDP, CP #### [address] [place], [place] [address] [employer] Installer: Ion Jasso MD Potassium [Moles/Vol] 3.7 mmol/L Normal 3.7-5.3 [facility] Comment on above: Performed By: #### L IP, CDP, CP #### [address] [place], [place] [id number] [employer] Installer: Ion Jasso MD Protein [Mass/Vol] 7.3 g/dL Normal 6.6-8.7 [facility] Comment on above: Performed By: #### L IP, CDP, CP #### [address] [place], [place] [address] [employer] Installer: Ion Jasso MD Sodium [Moles/Vol] 140 mmol/L Normal 136-145 [facility] Comment on above: Performed By: #### L IP, CDP, CP #### [address] [place] [address] [employer] Installer: Ion Jasso MD Urea nitrogen [Mass/Vol] 7 mg/dL Normal 6-20 [facility] Comment on above: Performed By: #### L IP, CDP, CP #### [address] [place], [place] [address] [employer] Installer: Ion Jasso MD Albumin/Glob Ratio 1.5 Normal 1.0-2.5 [facility] Comment on above: Performed By: #### L WALTER ROONEY, CP #### [facility] [address] [place], [place] [id number] [employer] Installer: Ion Jasso MD Alkaline Phos 145 U/L High 35-104 [facility] Comment on above: Performed By: #### L TORIBIO, CDP, CP #### [facility] [address] [place], [place] [id number] [employer] Installer: Ion Jasso MD BUN/CRE Ratio 9 Normal 9-20 [facility] Comment on above: Performed By: #### L WALTER ROONEY, CP #### [facility] [address] [place] [address] [employer] Installer: Ion Jasso MD GFR/1.73 sq M.predicted among [...] By: #### L WALTER ROONEY, CP #### [facility] [address] [place] [address] [employer] Installer: Ion Jasso MD Lipaseon 11-06-2024 Lipase [Catalytic activity/Vol] 247 U/L High 13-60 [facility] Comment on above: Performed By: #### L WALTER ROONEY, CP #### [facility] [address] [place] [address] [employer] Installer: Ion Jasso MD No Panel Informationon 11-06 Interpretation and review of laboratory results Abnormal [facility] Alanine aminotransferase [En zymatic activity/volume] in Serum or PlasmaOrdered By: Andrew Ponce on 10-28-2024 ALT [Catalytic activity/Vol] 10 U/L Normal 7-52 [facility] Comment on above: Performed By: #### C BC, LIPASE, BMP, HEPATIC #### [facility] [address] [place] [address] [place] Albumin [Mass/volume] in Ser um or Plasma by Bromocresol green (BCG) dye binding methoOrdered By: Andrew Ponce on 10-28-2024 Albumin BCG dye [Mass/Vol] 4.5 g/dL 3.5-5.7 [facility] Alkaline phosphatase [Enzyma tic activity/volume] in Serum or PlasmaOrdered By: Andrew Ponce on 10-28-2024 ALP [Catalytic activity/Vol] 136 U/L High 34-104 [facility] Comment on above: Performed By: #### C BC, LIPASE, BMP, HEPATIC #### [facility] [address] Appearance of UrineOrdered B y: Andrew Ponce on 10-28-2024 Appearance (U) Clear Normal Clear [facility] Comment on above: Order Comment: Name Collection Type:: Voided Performed By: #### C BC, LIPASE, BMP, HEPATIC #### [facility] [address] [place] [address] [place] Aspartate aminotransferase [ Enzymatic activity/volume] in Serum or PlasmaOrdered By: Andrew Ponce on 10-28-2024 AST [Catalytic activity/Vol] 18 U/L Normal 13-39 [facility] Comment on above: Performed By: #### C BC, LIPASE, BMP, HEPATIC #### [facility] [address] [place] [address] [place] Bacteria [Presence] in Urine by AutomatedOrdered By: Andrew Ponce on 10-28-2024 Bacteria Auto Ql (U) Rare [HPF] None Seen [facility] Basic Metabolic Panelon 10-08 Creatinine Clr Calc Pharmacy 59.85 Normal [facility] Comment on above: Performed By: #### C BC, LIPASE, BMP, HEPATIC #### [facility] [address] GFR/1.73 sq M.predicted MDRD (S/P/Bld) [Vol rate/Area] mL/min/{1.73_m2} Normal [facility] Comment on above: Performed By: #### C BC, LIPASE, BMP, HEPATIC #### [facility] [address] Basophils [#/volume] in Bloo d by Automated countOrdered By: Andrew Ponce on 10-28-2024 Basophils (Bld) [#/Vol] 0.1 10*3/uL Normal 0.0-0.2 [facility] Comment on above: Result Comment: PERF ORMED BY: [place] [address] PATHOLOGIST REGISTERED MEDICAL ASSISTANT TARA BENSON M.D. Performed By: #### C BC, LIPASE, BMP, HEPATIC #### [facility] [address] Basophils/100 leukocytes in Blood by Automated countOrdered By: Andrew Ponce on 10-28-2024 Basophils/100 WBC (Bld) 1.0 % Normal . [facility] Comment on above: Performed By: #### C BC, LIPASE, BMP, HEPATIC #### [address] Bilirubin Test strip Ql (U)O rdered By: Andrew Ponce on 10-28-2024 Bilirubin Ql (U) Negative Negative [facility] Bilirubin.direct [Mass/volum e] in Serum or PlasmaOrdered By: Andrew Ponce on 10-28-2024 Bilirubin.direct [Mass/Vol] 0.00 mg/dL Low 0.03-0.18 [facility] Comment on above: If the DBIL is less than 0.1, IBIL is not able to becalculated. Bilirubin.total [Mass/volume ] in Serum or PlasmaOrdered By: Andrew Ponce on 10-28-2024 Bilirubin [Mass/Vol] 0.3 mg/dL Normal 0.3-1.0 [facility] Comment on above: Performed By: #### C BC, LIPASE, BMP, HEPATIC #### [facility] [address] abdomen pelvis w conon CT abdomen pelvis w con [facility] [address] [place] [address] CT Scan Report Signed Patient: Chioma Arciniega MR#: [id number] : 1970 Acct:[id number] Age/Sex: 54 / F ADM Date: 10/28/24 Loc: ER Room: Type: [facility] ER Attending Dr: Copies to: Andrew [...] Mendieta M.D. 10/28/2024 4:38 PM Dictation Location: [place] [address] Transcribed By: [facility] 10/28/24 1638 Dictated By: Cruzito Mendieta DO 10/28/24 1636 Signed By: 10/28/24 1638 Normal [facility] Calcium [Mass/volume] in Ser um or PlasmaOrdered By: Andrew Ponce on 10-28-2024 Calcium [Mass/Vol] 10.2 mg/dL Normal 8.6-10.3 [facility] Comment on above: Performed By: #### C BC, LIPASE, BMP, HEPATIC #### [facility] [address] [place] [address] Carbon dioxide, total [Moles /volume] in Serum or PlasmaOrdered By: Andrew Ponce on 10-28-2024 CO2 [Moles/Vol] 30.4 mmol/L Normal 21.0-31.0 [facility] Comment on above: Performed By: #### C BC, LIPASE, BMP, HEPATIC #### [address] Chloride [Moles/volume] in S erika or PlasmaOrdered By: Andrew Ponce on 10-28-2024 Chloride [Moles/Vol] 104 mmol/L Normal 98-107 [facility] Comment on above: Performed By: #### C BC, LIPASE, BMP, HEPATIC #### [address] Color of Urine by AutoOrdere d By: Andrew Ponce on 10-28-2024 Color (U) Light-yellow Normal Yellow [facility] Comment on above: Order Comment: Name Collection Type:: Voided Performed By: #### C BC, LIPASE, BMP, HEPATIC #### [address] Complete Blood Count Auto Di ffon 10-28-2024 Mean Corpuscular HGB Conc 34.3 g/dL Normal 32.0-35.0 [facility] Comment on above: Performed By: #### C BC, LIPASE, BMP, HEPATIC #### [place] [address] [place] Monocytes/100 WBC (Bld) 19.51 % Normal 0.00-20.00 [facility] Comment on above: Performed By: #### C BC, LIPASE, BMP, HEPATIC #### [place] [address] [place] NRBC% 0.0 /100{WBC} Normal 0-0.5 [facility] Comment on above: Performed By: #### C BC, LIPASE, BMP, HEPATIC #### [address] White Blood Count 8.6 [CFU]/mL Normal 3.8-11.6 [facility] Comment on above: Performed By: #### C BC, LIPASE, BMP, HEPATIC #### [address] Creatinine [Mass/volume] in Serum or PlasmaOrdered By: Andrew Ponce on 10-28-2024 Creatinine [Mass/Vol] 0.84 mg/dL Normal 0.60-1.20 [facility] Comment on above: Performed By: #### C BC, LIPASE, BMP, HEPATIC #### [address] Dipstick and Microscopicon 0 10-28-2024 Bacteria,Urine Rare Normal None Seen [facility] Comment on above: Order Comment: Name Collection Type:: Voided Performed By: #### C BC, LIPASE, BMP, HEPATIC #### [address] Bilirubin,Urine Negative Normal Negative [facility] Comment on above: Order Comment: Name Collection Type:: Voided Performed By: #### C BC, LIPASE, BMP, HEPATIC #### [address] Glucose Ql (U) Normal Normal Normal [facility] Comment on above: Order Comment: Name Collection Type:: Voided Performed By: #### C BC, LIPASE, BMP, HEPATIC #### [address] Hyaline Casts,Urine None Normal 0-8 [facility] Comment on above: Order Comment: Name Collection Type:: Voided Performed By: #### C BC, LIPASE, BMP, HEPATIC #### [address] Mucus,Urine Rare Normal [facility] Comment on above: Order Comment: Name Collection Type:: Voided Result Comment: PERF ORMED BY: [place] [address] PATHOLOGIST REGISTERED MEDICAL ASSISTANT TARA BENSON M.D. Performed By: #### C BC, LIPASE, BMP, HEPATIC #### [address] Nitrite,Urine Negative Normal Negative [facility] Comment on above: Order Comment: Name Collection Type:: Voided Performed By: #### C BC, LIPASE, BMP, HEPATIC #### [address] Occult Blood,Urine 1+ Normal Negative [facility] Comment on above: Order Comment: Name Collection Type:: Voided Result Comment: PERF ORMED BY: [place] [address] PATHOLOGIST REGISTERED MEDICAL ASSISTANT TARA BENSON M.D. Performed By: #### C BC, LIPASE, BMP, HEPATIC #### [address] Protein,Urine Negative Normal Negative [facility] Comment on above: Order Comment: Name Collection Type:: Voided Performed By: #### C BC, LIPASE, BMP, HEPATIC #### [address] RBC,Urine 1-2 Normal 0-4 [facility] Comment on above: Order Comment: Name Collection Type:: Voided Performed By: #### C BC, LIPASE, BMP, HEPATIC #### [address] Specificy [place],Urine 1.017 Normal 1.001-1.03 0 [facility] Comment on above: Order Comment: Name Collection Type:: Voided Performed By: #### C BC, LIPASE, BMP, HEPATIC #### [address] Squamous Epithelial Cell,Urine 1-2 Normal 0-2 [facility] Comment on above: Order Comment: Name Collection Type:: Voided Performed By: #### C BC, LIPASE, BMP, HEPATIC #### [facility] [address] [place] [address] [place] Urobilinogen,Urine Normal Normal Normal [facility] Comment on above: Order Comment: Name Collection Type:: Voided Performed By: #### C BC, LIPASE, BMP, HEPATIC #### [facility] [address] [place] [address] [place] WBC,Urine 1-2 Normal 0-4 [facility] Comment on above: Order Comment: Name Collection Type:: Voided Performed By: #### C BC, LIPASE, BMP, HEPATIC #### [facility] [address] [place] [address] [place] Eosinophils [#/volume] in Bl ood by Automated countOrdered By: Andrew Ponce on 10-28-2024 Eosinophils (Bld) [#/Vol] 0.1 10*3/uL Normal 0.0-0.45 [facility] Comment on above: Performed By: #### C BC, LIPASE, BMP, HEPATIC #### [place] [address] [place] Eosinophils/100 leukocytes i n Blood by Automated countOrdered By: Andrew Ponce on 10-28-2024 Eosinophils/100 WBC (Bld) 1.5 % Normal . [facility] Comment on above: Performed By: #### C BC, LIPASE, BMP, HEPATIC #### [address] Epithelial cells.squamous [# /area] in Urine sediment by Automated countOrdered By: Andrew Ponce on 10-28-2024 Epithelial cells.squamous Auto (Urine sed) [#/Area] 1-2 [HPF] 0-2 [facility] Erythrocyte distribution wid th [Ratio] by Automated countOrdered By: Andrew Ponce on 10-28-2024 Erythrocyte distribution width (RBC) [Ratio] 13.6 % Normal 11.9-15.3 [facility] Comment on above: Performed By: #### C BC, LIPASE, BMP, HEPATIC #### [place] [address] [place] Erythrocytes [#/area] in Uri ne sediment by Automated countOrdered By: Andrew Ponce on 10-28-2024 RBC Auto (Urine sed) [#/Area] 1-2 [HPF] 0-4 [facility] Erythrocytes [#/volume] in B lood by Automated countOrdered By: Andrew Ponce on 10-28-2024 RBC (Bld) [#/Vol] 4.30 10*6/uL Normal 3.60-5.00 [facility] Comment on above: Performed By: #### C BC, LIPASE, BMP, HEPATIC #### [address] Glomerular filtration rate [ Volume Rate/Area] in Serum, Plasma or Blood by CreatinineOrdered By: Andrew Ponce on 10-28-2024 Glomerular filtration rate [Volume Rate/Area] in Serum, Plasma or Blood by Creatinine > 60.0 mL/Min [facility] Glucose [Mass/volume] in Ser um or PlasmaOrdered By: Andrew Ponce on 10-28-2024 Glucose [Mass/Vol] 95 mg/dL Normal 70-100 [facility] Comment on above: ADA recommended refe rence rangeRandom Glucose Reference Range is dependent on time and content of last meal. Glucose of more than 200 mg/dL in a nonstressed, ambulatory subject supports the diagnosis of Diabetes Mellitus. Result Comment: Max om Glucose Reference Range is dependent on time and content of last meal. Glucose of more than 200 mg/dL in a nonstressed, ambulatory subject supports the diagnosis of Diabetes Mellitus. ADA recommended reference range Performed By: #### C BC, LIPASE, BMP, HEPATIC #### [facility] [address] [id number] [facility] Glucose [Mass/volume] in Uri ne by Test stripOrdered By: Andrew Ponce on 10-28-2024 Glucose Test strip (U) [Mass/Vol] Normal mg/dL Normal [facility] Hematocrit [Volume Fraction] of Blood by Automated countOrdered By: Andrew Ponce on 10-28-2024 Hematocrit (Bld) [Volume fraction] 42.2 % Normal 34.0-46.4 [facility] Comment on above: Performed By: #### C BC, LIPASE, BMP, HEPATIC #### [facility] [address] Hemoglobin Test strip Ql (U) Ordered By: Andrew Ponce on 10-28-2024 Hemoglobin Ql (U) 1+ High Negative [facility] Hemoglobin [Mass/volume] in BloodOrdered By: Andrew Ponce on 10-28-2024 Hemoglobin (Bld) [Mass/Vol] 14.5 g/dL Normal 11.8-15.4 [facility] Comment on above: Performed By: #### C BC, LIPASE, BMP, HEPATIC #### [facility] [address] Hepatic Panelon 10-28-2024 Albumin [Mass/Vol] 4.5 g/dL Normal 3.5-5.7 [facility] Comment on above: Performed By: #### C BC, LIPASE, BMP, HEPATIC #### [address] Bilirubin,Indirect 0.3 mg/dL Normal [facility] Comment on above: Performed By: #### C BC, LIPASE, BMP, HEPATIC #### [address] Bilirubin.indirect [Mass/Vol] 0.00 mg/dL Low 0.03-0.18 [facility] Comment on above: Result Comment: If t he DBIL is less than 0.1, IBIL is not able to be calculated. Performed By: #### C BC, LIPASE, BMP, HEPATIC #### [address] Hyaline casts [#/area] in Ur ine sediment by Automated countOrdered By: Andrew Ponce on 10-28-2024 Hyaline casts Auto (Urine sed) [#/Area] None [LPF] 0-8 [facility] Ketones [Presence] in Urine by Test stripOrdered By: Andrew Ponce on 10-28-2024 Ketones Ql (U) Negative Normal Negative [facility] Comment on above: Order Comment: Name Collection Type:: Voided Performed By: #### C BC, LIPASE, BMP, HEPATIC #### [facility] [address] [place] [address] [place] Leukocyte esterase [Presence ] in Urine by Test stripOrdered By: Andrew Ponce on 10-28-2024 Leukocyte esterase Test strip Ql (U) Negative Normal Negative [facility] Comment on above: Order Comment: Name Collection Type:: Voided Performed By: #### C BC, LIPASE, BMP, HEPATIC #### [facility] [address] [place] [address] [place] Leukocytes [#/area] in Urine sediment by Automated countOrdered By: Andrew Ponce on 10-28-2024 WBC Auto (Urine sed) [#/Area] 1-2 [HPF] 0-4 [facility] Leukocytes [#/volume] correc aurelia for nucleated erythrocytes in Blood by Automated counOrdered By: Andrew Ponce on 10-28-2024 WBC corrected for nucl RBC Auto (Bld) [#/Vol] 8.6 10*3/uL 3.8-11.6 [facility] Leukocytes [#/volume] in Blo od by Automated countOrdered By: Andrew Ponce on 10-28-2024 WBC (Bld) [#/Vol] 8.6 10*3/uL Normal 3.8-11.6 [facility] Comment on above: Performed By: #### C BC, LIPASE, BMP, HEPATIC #### [facility] [address] [place] [address] [place] Lipase [Enzymatic activity/v olume] in Serum or PlasmaOrdered By: Andrew Ponce on 10-28-2024 Lipase [Catalytic activity/Vol] 140.0 U/L High 11.0-82.0 [facility] Comment on above: Result Comment: PERF ORMED BY: [facility] [address] [place] [address] PATHOLOGIST REGISTERED MEDICAL ASSISTANT TARA BENSON M.D. Performed By: #### C BC, LIPASE, BMP, HEPATIC #### [facility] [address] [place] [address] [place] Lymphocytes [#/volume] in Bl ood by Automated countOrdered By: Andrew Ponce on 10-28-2024 Lymphocytes (Bld) [#/Vol] 2.5 10*3/uL Normal 1.00-4.8 [facility] Comment on above: Performed By: #### C BC, LIPASE, BMP, HEPATIC #### [address] Lymphocytes/100 leukocytes i n Blood by Automated countOrdered By: Andrew Ponce on 10-28-2024 Lymphocytes/100 WBC (Bld) 28.8 % Normal . [facility] Comment on above: Performed By: #### C BC, LIPASE, BMP, HEPATIC #### [address] MCH [Entitic mass] by Automa aurelia countOrdered By: Andrew Ponce on 10-28-2024 MCH (RBC) [Entitic mass] 33.7 pg Normal 24.7-34.3 [facility] Comment on above: Performed By: #### C BC, LIPASE, BMP, HEPATIC #### [address] MCHC Auto (RBC) [Mass/Vol]Or dered By: Andrew Ponce on 10-28-2024 MCHC (RBC) [Mass/Vol] 34.3 g/dL 32.0-35.0 [facility] MCV [Entitic volume] by Auto mated countOrdered By: Andrew Ponce on 10-28-2024 MCV (RBC) [Entitic vol] 98.2 fL Normal 80-100 [facility] Comment on above: Performed By: #### C BC, LIPASE, BMP, HEPATIC #### [address] Monocyte distribution width [Entitic volume] in Blood by AutomatedOrdered By: Andrew Ponce on 10-28-2024 Monocyte distribution width Auto (Bld) [Entitic vol] 19.51 % 0.00-20.00 [facility] Monocytes [#/volume] in Bloo d by Automated countOrdered By: Andrew Ponce on 10-28-2024 Monocytes (Bld) [#/Vol] 0.8 10*3/uL Normal 0.0-0.8 [facility] Comment on above: Performed By: #### C BC, LIPASE, BMP, HEPATIC #### [facility] [address] [place] [address] [place] Monocytes/100 leukocytes in Blood by Automated countOrdered By: Andrew Ponce on 10-28-2024 Monocytes/100 WBC (Bld) 9.4 % Normal . [facility] Comment on above: Performed By: #### C BC, LIPASE, BMP, HEPATIC #### [facility] [address] Mucus [Presence] in Urine by AutomatedOrdered By: Andrew Ponce on 10-28-2024 Mucus Auto Ql (U) Rare [LPF] [facility] Neutrophils [#/volume] in Bl ood by Automated countOrdered By: Andrew Ponce on 10-28-2024 Neutrophils (Bld) [#/Vol] 5.1 10*3/uL Normal 1.8-7.7 [facility] Comment on above: Performed By: #### C BC, LIPASE, BMP, HEPATIC #### [facility] [address] [place] [address] Neutrophils/100 leukocytes i n Blood by Automated countOrdered By: Andrew Ponce on 10-28-2024 Neutrophils/100 WBC (Bld) 59.3 % Normal . [facility] Comment on above: Performed By: #### C BC, LIPASE, BMP, HEPATIC #### [facility] [address] [place] [address] Nitrite Test strip Ql (U)Ord ered By: Andrew Ponce on 10-28-2024 Nitrite Ql (U) Negative Negative [facility] No Panel InformationOrdered By: Andrew Ponce on 10-28-2024 Pharmacy Creatinine Clearance (Chem 59.85 [facility] Nucleated erythrocytes [Pres ence] in Blood by Automated countOrdered By: Andrew Ponce on 10-28-2024 Nucleated RBC Auto Ql (Bld) 0.0 /100{WBC} 0-0.5 [facility] Platelet mean volume [Entiti c volume] in Blood by Automated countOrdered By: Andrew Ponce on 10-28-2024 Platelet mean volume (Bld) [Entitic vol] 8.0 fL Normal 6.3-10.7 [facility] Comment on above: Performed By: #### C BC, LIPASE, BMP, HEPATIC #### [facility] [address] Platelets [#/volume] in Bloo d by Automated countOrdered By: Andrew Ponce on 10-28-2024 Platelets (Bld) [#/Vol] 258 10*3/uL Normal 150-450 [facility] Comment on above: Performed By: #### C BC, LIPASE, BMP, HEPATIC #### [facility] [address] Potassium [Moles/volume] in Serum or PlasmaOrdered By: Andrew Ponce on 10-28-2024 Potassium [Moles/Vol] 3.7 mmol/L Normal 3.5-5.1 [facility] Comment on above: Performed By: #### C BC, LIPASE, BMP, HEPATIC #### [address] Protein Test strip (U) [Mass /Vol]Ordered By: Andrew Ponce on 10-28-2024 Protein (U) [Mass/Vol] Negative Negative [facility] Protein [Mass/volume] in Ser um or PlasmaOrdered By: Andrew Ponce on 10-28-2024 Protein [Mass/Vol] 7.3 g/dL Normal 6.4-8.9 [facility] Comment on above: Performed By: #### C BC, LIPASE, BMP, HEPATIC #### [facility] [address] [place] [address] Serum globulin measurement b y calculation (mass/volume)Ordered By: Andrew Ponce on 10-28-2024 Globulin (S) [Mass/Vol] 2.8 g/dL [facility] Comment on above: Performed By: #### C BC, LIPASE, BMP, HEPATIC #### [facility] [address] Serum or plasma albumin/glob ulin mass ratioOrdered By: Andrew Ponce on 10-28-2024 Albumin/Globulin [Mass ratio] 1.6 {ratio} [facility] Comment on above: Performed By: #### C BC, LIPASE, BMP, HEPATIC #### [address] Serum or plasma anion gap de terminationOrdered By: Andrew Ponce on 10-28-2024 Anion gap [Moles/Vol] 8.3 mmol/L Normal 6.0-15.0 [facility] Comment on above: Performed By: #### C BC, LIPASE, BMP, HEPATIC #### [address] Serum or plasma non-glucuron idated bilirubin measurement (mass/volume)Ordered By: Andrew Ponce on 10-28-2024 Bilirubin.indirect [Mass/Vol] 0.3 mg/dL [facility] Sodium [Moles/volume] in Ser um or PlasmaOrdered By: Andrew Ponce on 10-28-2024 Sodium [Moles/Vol] 139 mmol/L Normal 136-145 [facility] Comment on above: Performed By: #### C BC, LIPASE, BMP, HEPATIC #### [address] Specific gravity Test strip (U) [Rel density]Ordered By: Andrew Ponce on 10-28-2024 Specific gravity (U) [Rel density] 1.017 1.001-1.03 0 [facility] Urea nitrogen [Mass/volume] in Serum or PlasmaOrdered By: Andrew Ponce on 10-28-2024 Urea nitrogen [Mass/Vol] 10 mg/dL Normal 7-25 [facility] Comment on above: Performed By: #### C BC, LIPASE, BMP, HEPATIC #### [address] Urobilinogen Test strip (U) [Mass/Vol]Ordered By: Andrew Ponce on 10-28-2024 Urobilinogen (U) [Mass/Vol] Normal mg/dL Normal [facility] pH of Urine by Test stripOrd ered By: Andrew Ponce on 10-28-2024 pH (U) 6.0 [pH] Normal 5.0-9.0 [facility] Comment on above: Order Comment: Name Collection Type:: Voided Performed By: #### C BC, LIPASE, BMP, HEPATIC #### [facility] [address] [id number] [facility] ED Note-Physicianon 10-26-19 ED Note-Physician ED Note-Physician [...] States that she does follow-up with the [facility] for GI follow-up. Review of Systems [...] Zepeda In 3 days 10/27/2024 EDT [address] [facility], [address] [phone] Business (1) Additional Instructions: Follow-up with your GI doctor. If you do not have 1 you may follow-up with Dr. Zepeda. Raji JENSEN In 3 days 10/27/2024 EDT [address] [place] [address]- Business (1) Additional Instructions: Follow-up with your primary care doctor. You do not have 1 you may follow-up with Dr. Jensen. Patient Education Chronic Pancreatitis Attestation Patient seen and evaluated by the physician switchboard operator assistant. Attending physician was present in the emergency department and supervised care. This visit was performed by both the physician and an APC. I performed all aspects of the MDM as documented. This report was transcribed using voice recognition software. Every effort was made to ensure accuracy, however, inadvertently computerized oracle specialist mistakes may be present. Appropriate healthcare PPE was used in evaluating this patient. The patient was placed i (more content not included)... Normal [facility] Comment on above: Result Comment: Elec tronically Signed By: Marco A Aguilar PA-C\.br\Date and Time Signed: 10/24/24 18:47 EDT\.br\Electronically Co-Signed By: Darrel Ferrer DO\.br\Date and Time Co-Signed: 10/25/24 07:01 EDT BMPon 10-24-2024 Anion gap [Moles/Vol] 9 mmol/L Normal 6-16 [facility] Comment on above: Performed By: #### 2 [id number] #### [facility] [address] [place] [address] BUN/Creat Ratio 10 No Units Normal 10-20 [facility] Comment on above: Performed By: #### 2 [id number] #### [facility] [address] [place] [address] Calcium [Mass/Vol] 9.9 mg/dL Normal 8.9-11.1 [facility] Comment on above: Performed By: #### 2 [id number] #### [facility] [address] [place] [address] Chloride [Moles/Vol] 105 mmol/L Normal 101-[address] [facility] Comment on above: Performed By: #### 2 [id number] #### [facility] [address] [place] [address] CO2 [Moles/Vol] 27 mmol/L Normal 21-31 [facility] Comment on above: Performed By: #### 2 112078 #### [facility] [address] [place] [address] Creatinine [Mass/Vol] 0.8 mg/dL Normal 0.5-1.3 [facility] Comment on above: Performed By: #### 2 [id number] #### [facility] [address] [place] [address] Glucose [Mass/Vol] 96 mg/dL Normal 55-199 [facility] Comment on above: Performed By: #### 2 [id number] #### [facility] [address] [place] [address] Potassium [Moles/Vol] 4.0 mmol/L Normal 3.5-5.3 [facility] Comment on above: Performed By: #### 2 [id number] #### [facility] [address] [place] [address] Sodium [Moles/Vol] 137 mmol/L Normal 135-145 [facility] Comment on above: Performed By: #### 2 [id number] #### [facility] [address] [place] [address] Urea nitrogen [Mass/Vol] 8 mg/dL Normal 5-21 [facility] Comment on above: Performed By: #### 2 [id number] #### [facility] [address] [place] [address] CBC w/ Auto Diffon 5 Basophil Absolute 0.2 E9/L Normal 0.0-0.2 [facility] Comment on above: Performed By: #### 2 [id number] #### [facility] [address] [place] [address] Basophils/100 WBC (Bld) 1.6 % Normal 0.0-2.0 [facility] Comment on above: Performed By: #### 2 658751 #### [facility] [address] [place] [address] Eos Absolute 0.2 E9/L Normal 0.0-0.5 [facility] Comment on above: Performed By: #### 2 [id number] #### [facility] [address] [place] [address] Eosinophils/100 WBC (Bld) 1.8 % Normal 0.0-8.0 [facility] Comment on above: Performed By: #### 2 [id number] #### [facility] [address] [place] [address] Erythrocyte distribution width (RBC) [Ratio] 13.4 % Normal 10.9-14.2 [facility] Comment on above: Performed By: #### 2 [id number] #### [facility] [address] [place] [address] Hematocrit (Bld) [Volume fraction] 40.1 % Normal 34.0-46.0 [facility] Comment on above: Performed By: #### 2 [id number] #### [facility] [address] [place] [address] Hemoglobin (Bld) [Mass/Vol] 14.0 g/dL Normal 12.0-16.0 [facility] Comment on above: Performed By: #### 2 [id number] #### [facility] [address] [place] [address] Lymph Absolute 2.8 E9/L Normal 1.0-4.0 [facility] Comment on above: Performed By: #### 2 563613 #### [facility] [address] [place] [address] Lymphocytes/100 WBC (Bld) 28.5 % Normal 14.0-50.0 [facility] Comment on above: Performed By: #### 2 [id number] #### [facility] [address] [place] [address] MCH (RBC) [Entitic mass] 34.4 pg High 27.0-34.0 [facility] Comment on above: Performed By: #### 2 [id number] #### [facility] [address] [place] [address] MCHC (RBC) [Mass/Vol] 34.8 g/dL Normal 31.4-36.0 [facility] Comment on above: Performed By: #### 2 [id number] #### [facility] [address] [place] [address] MCV (RBC) [Entitic vol] 98.7 fL Normal 80.0-100.0 [facility] Comment on above: Performed By: #### 2 971669 #### [facility] [address] [place] [address] Nicholas Absolute 0.8 E9/L Normal 0.2-1.0 [facility] Comment on above: Performed By: #### 2 657341 #### [facility] [address] [place] [address] Monocytes/100 WBC (Bld) 8.3 % Normal 4.0-14.0 [facility] Comment on above: Performed By: #### 2 749444 #### [facility] [address] [place] [address] Neutro Absolute 5.9 E9/L Normal 2.0-7.5 [facility] Comment on above: Performed By: #### 2 758222 #### [facility] [address] [place] [address] Neutro Auto 59.8 % Normal 36.0-75.0 [facility] Comment on above: Performed By: #### 2 257024 #### [facility] [address] [place] [address] Platelet 274.0 E9/L Normal 150.0-500. 0 [facility] Comment on above: Performed By: #### 2 694996 #### [facility] [address] [place] [address] Platelet mean volume (Bld) [Entitic vol] 8.1 fL Normal 6.4-10.8 [facility] Comment on above: Performed By: #### 2 291717 #### [facility] [address] [place] [address] RBC 4.1 E12/L Low 4.3-5.9 [facility] Comment on above: Performed By: #### 2 079518 #### [facility] [address] [place] [address] WBC 9.9 E9/L Normal 4.0-11.0 [facility] Comment on above: Performed By: #### 2 [id number] #### [facility] [address] [place] [address] ED Clinical Summaryon 2024 ED Clinical Summary ED Clinical Summary [address] [address] ED Clinical Summary Person Information [facility] Age[facility] 54 Years : 1970 Sex: Female Language: South [place]ese PCP: NONE, XXXX Marital Status: Visit Id: [...] 10/24/2024 19:00:42 10/24/2024 19:00:42 10/24/2024 19:00:42 ADDRESS: [address] [place] [phone] PHYS DOC NOTES: MEDICAL INFORMATION: Prescriptions Given: Medications to Continue with No Changes Other Medications promethazine (promethazine 25 mg Tab) 1 Tablets By Mouth 3 times a day. Refills: 0. PATIENT EDUCATION INFORMATION: Instructions: Chronic Pancreatitis Follow up: With: Address: When: [address], [address], [address] [phone] Business (1) In 3 days 10/27/2024 Comments: Follow-up with your GI doctor. If you do not have 1 you may follow-up with Dr. Zepeda. With: Address: When: Raji JENSEN [address] [place], [place] [phone] Business (1) In 3 days 10/27/2024 Comments: Follow-up with your primary care doctor. You do not have 1 you may follow-up with Dr. Jensen. DIAGNOSIS: Chronic pancreatitis Normal [facility] ED Patient Summaryon 025 ED Patient Summary ED Patient Summary [address] [address] Patient Discharge Instructions Person Information Name: CHIOMA ARCINIEGA Age: 54 Years Arrival Date: 10/24/2024 16:30:34 Discharge Diagnosis: Chronic pancreatitis Primary Care Physician: NONE, XXXX Provider Information Primary Provider: Darrel Ferrer DO [employer] Presser:Marco A Aguilar PA-C The exam and treatment you received in the Emergency Department were for an urgent problem and are not intended as complete care. It is important that you follow up with a doctor, nurse practitioner, or physician???s switchboard operator assistant for ongoing care. If your symptoms become worse or you do not improve as expected and you are unable to reach your usual health care provider, you should return to the Emergency Department. We are available 24 hours a day. JANUSZCHIOMA has been given the following list of patient education materials, prescriptions and follow-up instructions: Follow-up Instructions: With: Address: When: [address], [address], [address] [phone] Business (1) In 3 days 10/27/2024 Comments: Follow-up with your GI doctor. If you do not have 1 you may follow-up with Dr. Zepeda. With: Address: When: [place] [address] Business (1) In 3 days [...] opioids can be used to help relieve [id number] pain and are often prescribed following a [...] program o (more content not included)... Normal [facility] Hep Func Panelon 10-24-2024 Albumin [Mass/Vol] 4.3 g/dL Normal 3.3-5.0 [facility] Comment on above: Performed By: #### 2 [id number] #### [facility] [address] [place] [address] Albumin/Globulin [Mass ratio] 1.8 {ratio} Normal 1.1-2.2 [facility] Comment on above: Performed By: #### 2 [id number] #### [facility] [address] [place] [address] Alk Phos 125 Int._Unit/L High 21-98 [facility] Comment on above: Performed By: #### 2 [id number] #### [facility] [address] [place] [address] ALT 9 Int._Unit/L Normal 6-46 [facility] Comment on above: Performed By: #### 2 [id number] #### [facility] [address] [place] [address] AST 18 Int._Unit/L Normal 5-43 [facility] Comment on above: Performed By: #### 2 857045 #### [facility] [address] [place] [address] Bili Direct 0.0 mg/dL Normal 0.0-0.4 [facility] Comment on above: Performed By: #### 2 230809 #### [facility] [address] [place] [address] Bili Indirect 0.2 mg/dL Normal 0.1-0.9 [facility] Comment on above: Performed By: #### 2 770817 #### [facility] [address] [place] [address] Bili Total 0.2 mg/dL Normal 0.0-1.1 [facility] Comment on above: Performed By: #### 2 [id number] #### [facility] [address] [place] [address] Globulin (S) [Mass/Vol] 2.4 g/dL Normal 1.4-4.0 [facility] Comment on above: Performed By: #### 2 844371 #### [facility] [address] [place] [address] Protein [Mass/Vol] 6.7 g/dL Normal 6.0-7.8 [facility] Comment on above: Performed By: #### 2 087091 #### [facility] [address] [place] [address] Lipase Levelon 10-24-2024 Lipase Lvl 56 unit/L Normal 13-58 [facility] Comment on above: Performed By: #### 2 [id number] #### [facility] [address] [place] [address] UA with Cult Rflxon 10-25-19 25 Color (U) Colorless Abnormal Yellow [facility] Comment on above: Result Comment: Micr oscopic readings are only performed on those samples that meet specific criteria set forth by [facility]. Performed By: #### 4 [id number] #### [facility] [address] [place] [address] Glucose (U) [Mass/Vol] Negative Normal Negative [facility] Comment on above: Performed By: #### 4 [id number] #### [facility] [address] [place] [address] Ketones Ql (U) Negative Normal Negative [facility] Comment on above: Performed By: #### 4 [id number] #### [facility] [address] [place] [address] UA Blood Negative Normal Negative [facility] Comment on above: Performed By: #### 4 [id number] #### [facility] [address] [place] [address] UA Clarity Clear Normal Clear [facility] Comment on above: Performed By: #### 4 [id number] #### [facility] [address] [place] [address] UA Leuk Est Negative Normal Negative [facility] Comment on above: Performed By: #### 4 [id number] #### [facility] [address] [place] [address] UA Nitrite Negative Normal Negative [facility] Comment on above: Performed By: #### 4 [id number] #### [facility] [address] [place] [address] UA pH 5.5 Invalid Interpretation Code 5.0-9.0 [facility] Comment on above: Performed By: #### 4 [id number] #### [facility] [address] [place] [address] UA Protein Negative Normal Negative [facility] Comment on above: Performed By: #### 4 [id number] #### [facility] [address] [place] [address] UA Spec Grav 1.006 Invalid Interpretation Code 1.005-1.03 0 [facility] Comment on above: Performed By: #### 4 [id number] #### [facility] [address] [place] [address] UA Urobilinogen Negative Normal Negative [facility] Comment on above: Performed By: #### 4 [id number] #### [facility] [address] [place] [address] Urobilinogen (U) [Mass/Vol] Negative Normal Negative [facility] Comment on above: Performed By: #### 4 [id number] #### [facility] [address] [place] [address] UA Spec Desc Clean Catch Normal [facility] Comment on above: Performed By: #### 4 [id number] #### [facility] [address] [facility] [place] [address] eGFRon 10-24-2024 eGFR 87 mL/min/1.73 m2 Normal >=59 [facility] Comment on above: Performed By: #### 1 [id number] #### [facility] [address] [place] [address] Alanine aminotransferase [En zymatic activity/volume] in Serum or PlasmaOrdered By: Diomedes Posadas on 10-19-2024 ALT [Catalytic activity/Vol] 9 U/L Normal 7-52 [facility] Comment on above: Performed By: #### C BC, LIPASE, BMP, HEPATIC #### [facility] [address] Albumin [Mass/volume] in Ser um or Plasma by Bromocresol green (BCG) dye binding methoOrdered By: Diomedes Posadas on 10-19-2024 Albumin BCG dye [Mass/Vol] 4.5 g/dL 3.5-5.7 [facility] Alkaline phosphatase [Enzyma tic activity/volume] in Serum or PlasmaOrdered By: Diomedes Posadas on 10-19-2024 ALP [Catalytic activity/Vol] 145 U/L High 34-104 [facility] Comment on above: Performed By: #### C BC, LIPASE, BMP, HEPATIC #### [facility] [address] [place] [address] Appearance of UrineOrdered B y: Diomedes Gardneranand on 10-19-2024 Appearance (U) Clear Normal Clear [facility] Comment on above: Order Comment: Name Collection Type:: Voided Performed By: #### C BC, LIPASE, BMP, HEPATIC #### [address] Aspartate aminotransferase [ Enzymatic activity/volume] in Serum or PlasmaOrdered By: Diomedes Posadas on 10-19-2024 AST [Catalytic activity/Vol] 16 U/L Normal 13- [facility] Comment on above: Performed By: #### C BC, LIPASE, BMP, HEPATIC #### [address] Basic Metabolic Panelon 10-07 Creatinine Clr Calc Pharmacy 60.57 Normal [facility] Comment on above: Performed By: #### C BC, LIPASE, BMP, HEPATIC #### [address] GFR/1.73 sq M.predicted MDRD (S/P/Bld) [Vol rate/Area] mL/min/{1.73_m2} Normal [facility] Comment on above: Performed By: #### C BC, LIPASE, BMP, HEPATIC #### [address] Basophils [#/volume] in Bloo d by Automated countOrdered By: Diomedes Posadas on 10-19-2024 Basophils (Bld) [#/Vol] 0.1 10*3/uL Normal 0.0-0.2 [facility] Comment on above: Result Comment: PERF ORMED BY: [place] [address] PATHOLOGIST REGISTERED MEDICAL ASSISTANT TARA BENSON M.D. Performed By: #### C BC, LIPASE, BMP, HEPATIC #### [place] [address] [place] Basophils/100 leukocytes in Blood by Automated countOrdered By: Diomedes Posadas on 10-19-2024 Basophils/100 WBC (Bld) 0.9 % Normal . [facility] Comment on above: Performed By: #### C BC, LIPASE, BMP, HEPATIC #### [facility] [address] [place] [address] Bilirubin Test strip Ql (U)O rdered By: Diomedes Posadas on 10-19-2024 Bilirubin Ql (U) Negative Negative [facility] Bilirubin.direct [Mass/volum e] in Serum or PlasmaOrdered By: Diomedes Posadas on 10-19-2024 Bilirubin.direct [Mass/Vol] 0.00 mg/dL Low 0.03-0.18 [facility] Comment on above: If the DBIL is less than 0.1, IBIL is not able to becalculated. Bilirubin.total [Mass/volume ] in Serum or PlasmaOrdered By: Diomedes Posadas on 10-19-2024 Bilirubin [Mass/Vol] 0.4 mg/dL Normal 0.3-1.0 [facility] Comment on above: Performed By: #### C BC, LIPASE, BMP, HEPATIC #### [facility] [address] [place] [address] CT abdomen pelvis w conon CT abdomen pelvis w [place] [address] CT Scan Report Signed Patient: Chioma Arciniega MR#: [id number] : 1970 Acct:[id number] Age/Sex: 54 / F ADM Date: 10/19/24 Loc: ER Room: Type: [facility] ER Attending Dr: Copies to: Diomedes [...] Mendieta M.D. 10/19/2024 10:12 PM Dictation Location: [facility]20 Transcribed By: [facility] 10/19/242211 Dictated By: Cruzito Mendieta DO 10/19/242203 Signed By: 10/19/242211 Normal [facility] Calcium [Mass/volume] in Ser um or PlasmaOrdered By: Diomedes Posadas on 10-19-2024 Calcium [Mass/Vol] 9.8 mg/dL Normal 8.6-10.3 [facility] Comment on above: Performed By: #### C BC, LIPASE, BMP, HEPATIC #### [facility] [address] Carbon dioxide, total [Moles /volume] in Serum or PlasmaOrdered By: Diomedes Posadas on 10-19-2024 CO2 [Moles/Vol] 25.0 mmol/L Normal 21.0-31.0 [facility] Comment on above: Performed By: #### C BC, LIPASE, BMP, HEPATIC #### [facility] [address] [place] [address] [place] Chloride [Moles/volume] in S erika or PlasmaOrdered By: Diomedes Posadas on 10-19-2024 Chloride [Moles/Vol] 106 mmol/L Normal 98-107 [facility] Comment on above: Performed By: #### C BC, LIPASE, BMP, HEPATIC #### [address] Color of Urine by AutoOrdere d By: Diomedes Posadas on 10-19-2024 Color (U) Colorless Normal Yellow [facility] Comment on above: Order Comment: Name Collection Type:: Voided Performed By: #### C BC, LIPASE, BMP, HEPATIC #### [address] Complete Blood Count Auto Di ffon 10-19-2024 Mean Corpuscular HGB Conc 33.7 g/dL Normal 32.0-35.0 [facility] Comment on above: Performed By: #### C BC, LIPASE, BMP, HEPATIC #### [address] Monocytes/100 WBC (Bld) 17.90 % Normal 0.00-20.00 [facility] Comment on above: Performed By: #### C BC, LIPASE, BMP, HEPATIC #### [address] NRBC% 0.0 /100{WBC} Normal 0-0.5 [facility] Comment on above: Performed By: #### C BC, LIPASE, BMP, HEPATIC #### [address] White Blood Count 11.2 [CFU]/mL Normal 3.8-11.6 [facility] Comment on above: Performed By: #### C BC, LIPASE, BMP, HEPATIC #### [address] Creatinine [Mass/volume] in Serum or PlasmaOrdered By: Diomedes Posadas on 10-19-2024 Creatinine [Mass/Vol] 0.83 mg/dL Normal 0.60-1.20 [facility] Comment on above: Performed By: #### C BC, LIPASE, BMP, HEPATIC #### [address] ECG 12 lead ECGon 10-19-2024 ECG 12 lead ECG [facility] [address] [place] [address] Electrocardiograph Report Signed Patient: Chioma Arciniega MR#: [id number] : 1970 Acct:[id number] Age/Sex: 54 / F ADM Date: 10/19/24 Loc: ER Room: Type: [facility] ER Attending Dr: Ordering Provider: Diomedes [...] sinus rhythm Confirmed by Chi GARCIA DO ([id number]) on 10/20/2024 12:41:59 AM Referred By: Electronically Signed By: Chi GARCIA DO Transcribed By: MUS Signed By Chi Garcia DO 0 10/20/24 0042 Normal [facility] Eosinophils [#/volume] in Bl ood by Automated countOrdered By: Diomedes Posadas on 10-19-2024 Eosinophils (Bld) [#/Vol] 0.2 10*3/uL Normal 0.0-0.45 [facility] Comment on above: Performed By: #### C BC, LIPASE, BMP, HEPATIC #### [facility] [address] [place] [address] [place] Eosinophils/100 leukocytes i n Blood by Automated countOrdered By: Diomedes Posadas on 10-19-2024 Eosinophils/100 WBC (Bld) 1.6 % Normal . [facility] Comment on above: Performed By: #### C BC, LIPASE, BMP, HEPATIC #### [facility] [address] [place] [address] [place] Erythrocyte distribution wid th [Ratio] by Automated countOrdered By: Diomedes Posadas on 10-19-2024 Erythrocyte distribution width (RBC) [Ratio] 13.8 % Normal 11.9-15.3 [facility] Comment on above: Performed By: #### C BC, LIPASE, BMP, HEPATIC #### [facility] [address] [place] [address] [place] Erythrocytes [#/volume] in B lood by Automated countOrdered By: Diomedes Posadas on 10-19-2024 RBC (Bld) [#/Vol] 4.37 10*6/uL Normal 3.60-5.00 [facility] Comment on above: Performed By: #### C BC, LIPASE, BMP, HEPATIC #### [facility] [address] Glucose [Mass/volume] in Ser um or PlasmaOrdered By: Diomedes Posadas on 10-19-2024 Glucose [Mass/Vol] 84 mg/dL Normal 70-100 [facility] Comment on above: ADA recommended refe rence rangeRandom Glucose Reference Range is dependent on time and content of last meal. Glucose of more than 200 mg/dL in a nonstressed, ambulatory subject supports the diagnosis of Diabetes Mellitus. Result Comment: Max om Glucose Reference Range is dependent on time and content of last meal. Glucose of more than 200 mg/dL in a nonstressed, ambulatory subject supports the diagnosis of Diabetes Mellitus. ADA recommended reference range Performed By: #### C BC, LIPASE, BMP, HEPATIC #### [facility] [address] Glucose [Mass/volume] in Uri ne by Test stripOrdered By: Diomedes Posadas on 10-19-2024 Glucose Test strip (U) [Mass/Vol] Normal mg/dL Normal [facility] Hematocrit [Volume Fraction] of Blood by Automated countOrdered By: Diomedes Posadas on 10-19-2024 Hematocrit (Bld) [Volume fraction] 42.9 % Normal 34.0-46.4 [facility] Comment on above: Performed By: #### C BC, LIPASE, BMP, HEPATIC #### [facility] [address] [place] [id number] [facility] Hemoglobin Test strip Ql (U) Ordered By: Diomedes Posadas on 10-19-2024 Hemoglobin Ql (U) Negative Negative [facility] Hemoglobin [Mass/volume] in BloodOrdered By: Diomedes Posadas on 10-19-2024 Hemoglobin (Bld) [Mass/Vol] 14.4 g/dL Normal 11.8-15.4 [facility] Comment on above: Performed By: #### C BC, LIPASE, BMP, HEPATIC #### [facility] [address] Hepatic Panelon 10-19-2024 Albumin [Mass/Vol] 4.5 g/dL Normal 3.5-5.7 [facility] Comment on above: Performed By: #### C BC, LIPASE, BMP, HEPATIC #### [address] Bilirubin,Indirect 0.4 mg/dL Normal [facility] Comment on above: Performed By: #### C BC, LIPASE, BMP, HEPATIC #### [address] Bilirubin.indirect [Mass/Vol] 0.00 mg/dL Low 0.03-0.18 [facility] Comment on above: Result Comment: If t he DBIL is less than 0.1, IBIL is not able to be calculated. Performed By: #### C BC, LIPASE, BMP, HEPATIC #### [address] Ketones [Presence] in Urine by Test stripOrdered By: Diomedes Posadas on 10-19-2024 Ketones Ql (U) Negative Normal Negative [facility] Comment on above: Order Comment: Name Collection Type:: Voided Performed By: #### C BC, LIPASE, BMP, HEPATIC #### [address] Leukocyte esterase [Presence ] in Urine by Test stripOrdered By: Diomedes Posadas on 10-19-2024 Leukocyte esterase Test strip Ql (U) Negative Normal Negative [facility] Comment on above: Order Comment: Name Collection Type:: Voided Performed By: #### C BC, LIPASE, BMP, HEPATIC #### [address] Leukocytes [#/volume] correc aurelia for nucleated erythrocytes in Blood by Automated counOrdered By: Diomedes Posadas on 10-19-2024 WBC corrected for nucl RBC Auto (Bld) [#/Vol] 11.2 10*3/uL 3.8-11.6 [facility] Leukocytes [#/volume] in Blo od by Automated countOrdered By: Diomedes Posadas on 10-19-2024 WBC (Bld) [#/Vol] 11.2 10*3/uL Normal 3.8-11.6 [facility] Comment on above: Performed By: #### C BC, LIPASE, BMP, HEPATIC #### [address] Lipase [Enzymatic activity/v olume] in Serum or PlasmaOrdered By: Diomedes Posadas on 10-19-2024 Lipase [Catalytic activity/Vol] 198.0 U/L High 11.0-82.0 [facility] Comment on above: Result Comment: PERF ORMED BY: [place] [address] PATHOLOGIST REGISTERED MEDICAL ASSISTANT TARA BENSON M.D. Performed By: #### C BC, LIPASE, BMP, HEPATIC #### [address] Lymphocytes [#/volume] in Bl ood by Automated countOrdered By: Diomedes Posadas on 10-19-2024 Lymphocytes (Bld) [#/Vol] 3.3 10*3/uL Normal 1.00-4.8 [facility] Comment on above: Performed By: #### C BC, LIPASE, BMP, HEPATIC #### [facility] [address] [place] [address] [place] Lymphocytes/100 leukocytes i n Blood by Automated countOrdered By: Diomedes Posadas on 10-19-2024 Lymphocytes/100 WBC (Bld) 29.1 % Normal . [facility] Comment on above: Performed By: #### C BC, LIPASE, BMP, HEPATIC #### [place] [address] [place] MCH [Entitic mass] by Automa aurelia countOrdered By: Diomedes Posadas on 10-19-2024 MCH (RBC) [Entitic mass] 33.0 pg Normal 24.7-34.3 [facility] Comment on above: Performed By: #### C BC, LIPASE, BMP, HEPATIC #### [facility] [address] [place] [address] MCHC Auto (RBC) [Mass/Vol]Or dered By: Diomedes Posadas on 10-19-2024 MCHC (RBC) [Mass/Vol] 33.7 g/dL 32.0-35.0 [facility] MCV [Entitic volume] by Auto mated countOrdered By: Diomedes Posadas on 10-19-2024 MCV (RBC) [Entitic vol] 98.2 fL Normal 80-100 [facility] Comment on above: Performed By: #### C BC, LIPASE, BMP, HEPATIC #### [facility] [address] [place] [address] Monocyte distribution width [Entitic volume] in Blood by AutomatedOrdered By: Diomedes Posadas on 10-19-2024 Monocyte distribution width Auto (Bld) [Entitic vol] 17.90 % 0.00-20.00 [facility] Monocytes [#/volume] in Bloo d by Automated countOrdered By: Diomedes Posadas on 10-19-2024 Monocytes (Bld) [#/Vol] 1.0 10*3/uL High 0.0-0.8 [facility] Comment on above: Performed By: #### C BC, LIPASE, BMP, HEPATIC #### [facility] [address] [place] [address] [place] Monocytes/100 leukocytes in Blood by Automated countOrdered By: Diomedes Posadas on 10-19-2024 Monocytes/100 WBC (Bld) 8.6 % Normal . [facility] Comment on above: Performed By: #### C BC, LIPASE, BMP, HEPATIC #### [facility] [address] [place] [address] [place] Neutrophils [#/volume] in Bl ood by Automated countOrdered By: Diomedes Posadas on 10-19-2024 Neutrophils (Bld) [#/Vol] 6.7 10*3/uL Normal 1.8-7.7 [facility] Comment on above: Performed By: #### C BC, LIPASE, BMP, HEPATIC #### [facility] [address] [place] [address] [place] Neutrophils/100 leukocytes i n Blood by Automated countOrdered By: Diomedes Posadas on 10-19-2024 Neutrophils/100 WBC (Bld) 59.8 % Normal . [facility] Comment on above: Performed By: #### C BC, LIPASE, BMP, HEPATIC #### [facility] [address] Nitrite Test strip Ql (U)Ord ered By: Diomedes Posadas on 10-19-2024 Nitrite Ql (U) Negative Negative [facility] No Panel InformationOrdered By: Diomedes Posadas on 10-19-2024 Estimated GFR (CKD-EPI) > 60.0 mL/Min [facility] Creatinine Clearance (Chem 60.57 [facility] Nucleated erythrocytes [Pres ence] in Blood by Automated countOrdered By: Diomedes Posadas on 10-19-2024 Nucleated RBC Auto Ql (Bld) 0.0 /100{WBC} 0-0.5 [facility] Platelet mean volume [Entiti c volume] in Blood by Automated countOrdered By: Diomedes Posadas on 10-19-2024 Platelet mean volume (Bld) [Entitic vol] 7.5 fL Normal 6.3-10.7 [facility] Comment on above: Performed By: #### C BC, LIPASE, BMP, HEPATIC #### [facility] [address] [place] [address] [place] Platelets [#/volume] in Bloo d by Automated countOrdered By: Diomedes Posadas on 10-19-2024 Platelets (Bld) [#/Vol] 281 10*3/uL Normal 150-450 [facility] Comment on above: Performed By: #### C BC, LIPASE, BMP, HEPATIC #### [facility] [address] [place] [address] [place] Potassium [Moles/volume] in Serum or PlasmaOrdered By: Diomedes Posadas on 10-19-2024 Potassium [Moles/Vol] 3.9 mmol/L Normal 3.5-5.1 [facility] Comment on above: Performed By: #### C BC, LIPASE, BMP, HEPATIC #### [facility] [address] [place] [address] Protein Test strip (U) [Mass /Vol]Ordered By: Diomedes Posadas on 10-19-2024 Protein (U) [Mass/Vol] Negative Negative [facility] Protein [Mass/volume] in Ser um or PlasmaOrdered By: Diomedes Posadas on 10-19-2024 Protein [Mass/Vol] 7.3 g/dL Normal 6.4-8.9 [facility] Comment on above: Performed By: #### C BC, LIPASE, BMP, HEPATIC #### [address] Serum globulin measurement b y calculation (mass/volume)Ordered By: Diomedes Posadas on 10-19-2024 Globulin (S) [Mass/Vol] 2.8 g/dL [facility] Comment on above: Performed By: #### C BC, LIPASE, BMP, HEPATIC #### [address] Serum or plasma albumin/glob ulin mass ratioOrdered By: Diomedes Posadas on 10-19-2024 Albumin/Globulin [Mass ratio] 1.6 {ratio} [facility] Comment on above: Performed By: #### C BC, LIPASE, BMP, HEPATIC #### [facility] [address] [place] [address] Serum or plasma anion gap de terminationOrdered By: Diomedes Posadas on 10-19-2024 Anion gap [Moles/Vol] 11.9 mmol/L Normal 6.0-15.0 [facility] Comment on above: Performed By: #### C BC, LIPASE, BMP, HEPATIC #### [address] Serum or plasma non-glucuron idated bilirubin measurement (mass/volume)Ordered By: Diomedes Posadas on 10-19-2024 Bilirubin.indirect [Mass/Vol] 0.4 mg/dL [facility] Sodium [Moles/volume] in Ser um or PlasmaOrdered By: Diomedes Posadas on 10-19-2024 Sodium [Moles/Vol] 139 mmol/L Normal 136-145 [facility] Comment on above: Performed By: #### C BC, LIPASE, BMP, HEPATIC #### [address] Specific gravity Test strip (U) [Rel density]Ordered By: Diomedes Posadas on 10-19-2024 Specific gravity (U) [Rel density] 1.007 1.001-1.03 0 [facility] Urea nitrogen [Mass/volume] in Serum or PlasmaOrdered By: Diomedes Posadas on 10-19-2024 Urea nitrogen [Mass/Vol] 11 mg/dL Normal 7-25 [facility] Comment on above: Performed By: #### C BC, LIPASE, BMP, HEPATIC #### [address] Urinalysison 10-19-2024 Bilirubin,Urine Negative Normal Negative [facility] Comment on above: Order Comment: Name Collection Type:: Voided Performed By: #### C BC, LIPASE, BMP, HEPATIC #### [address] Glucose Ql (U) Normal Normal Normal [facility] Comment on above: Order Comment: Name Collection Type:: Voided Performed By: #### C BC, LIPASE, BMP, HEPATIC #### [place] [address] [place] Nitrite,Urine Negative Normal Negative [facility] Comment on above: Order Comment: Name Collection Type:: Voided Performed By: #### C BC, LIPASE, BMP, HEPATIC #### [address] Occult Blood,Urine Negative Normal Negative [facility] Comment on above: Order Comment: Name Collection Type:: Voided Result Comment: PERF ORMED BY: [place] [address] PATHOLOGIST REGISTERED MEDICAL ASSISTANT TARA S MARCELINO M.D. Performed By: #### C BC, LIPASE, BMP, HEPATIC #### [facility] [address] Protein,Urine Negative Normal Negative [facility] Comment on above: Order Comment: Name Collection Type:: Voided Performed By: #### C BC, LIPASE, BMP, HEPATIC #### [facility] [address] Specificy [place],Urine 1.007 Normal 1.001-1.03 0 [facility] Comment on above: Order Comment: Name Collection Type:: Voided Performed By: #### C BC, LIPASE, BMP, HEPATIC #### [facility] [address] Urobilinogen,Urine Normal Normal Normal [facility] Comment on above: Order Comment: Name Collection Type:: Voided Performed By: #### C BC, LIPASE, BMP, HEPATIC #### [address] Urobilinogen Test strip (U) [Mass/Vol]Ordered By: Diomedes Posadas on 10-19-2024 Urobilinogen (U) [Mass/Vol] Normal mg/dL Normal [facility] pH of Urine by Test stripOrd ered By: Diomedes Posadas on 10-19-2024 pH (U) 5.5 [pH] Normal 5.0-9.0 [facility] Comment on above: Order Comment: Name Collection Type:: Voided Performed By: #### C BC, LIPASE, BMP, HEPATIC #### [address] ED Note-Physicianon 10-16-19 ED Note-Physician ED [...] Patient seen and evaluated by the physician switchboard operator assistant. Attending physician was present in the emergency department and supervised care. This visit was performed by both the physician and an APC. I performed all aspects of the MDM as documented. This report was transcribed using voice recognition software. Every effort was made to ensure accuracy, however, inadvertently computerized oracle specialist mistakes may be present. Appropriate healthcare PPE [...] promethazine 2 (more content not included)... Normal [facility] Comment on above: Result Comment: Elec tronically Signed By: Jeff MARSH, Marco A Shaver\.br\Date and Time Signed: 10/09/24 16:16 EDT\.br\Electronically Co-Signed By: Kike ALEXANDER, Ish\.br\Date and Time Co-Signed: 10/15/24 08:10 EDT APTTon 10-11-2024 aPTT Coag (Bld) [Time] 28 s Normal 26-37 [facility] Comment on above: Performed By: #### 8 9579-7, 62841-4, 5643-2, 06209-2, LIVR, 3040-3, CBCA, BMP #### [facility] ([id number]) [address] [place] [address] BASIC METABOLIC PANELon 08-0 Anion gap [Moles/Vol] 5 mmol/L Normal 5-15 [facility] Comment on above: Performed By: #### 8 9579-7, 05437-4, 5643-2, 55521-8, LIVR, 3040-3, CBCA, BMP #### [facility] ([id number]) [address] [place] [address] Calcium [Mass/Vol] 9.3 mg/dL Normal 8.5-10.5 [facility] Comment on above: Performed By: #### 8 9579-7, 37604-0, 5643-2, 79778-1, LIVR, 3040-3, CBCA, BMP #### [facility] ([id number]) [address] [place] [address] Chloride [Moles/Vol] 106 mmol/L Normal 98-109 [facility] Comment on above: Performed By: #### 8 9579-7, 21776-0, 5643-2, 43379-2, LIVR, 3040-3, CBCA, BMP #### [facility] ([id number]) [address] [place] [address] CO2 [Moles/Vol] 25 mmol/L Normal 22-32 [facility] Comment on above: Performed By: #### 8 9579-7, 77567-4, 5643-2, 69194-1, LIVR, 3040-3, CBCA, BMP #### [facility] ([id number]) [address] [place] [address] Creatinine [Mass/Vol] 0.80 mg/dL Normal 0.40-1.00 [facility] Comment on above: Result Comment: METH OD TRACEABLE TO IDMS STANDARD Performed By: #### 8 9579-7, 15515-2, 5643-2, 33251-6, LIVR, 3040-3, CBCA, BMP #### [facility] ([id number]) [address] [place] [address] 44252 GFR/1.73 sq M.predicted among non-blacks MDRD (S/P/Bld) [Vol rate/Area] 87 mL/min/{1.73_m2} Normal >=60 [facility] Comment on above: Result Comment: eGFR not reported due to non-numeric value for Creatinine. Reported eGFR is based on the CKD-EPI 2021 equation that does not use a race coefficient. Performed By: #### 8 9579-7, 58319-5, 5643-2, 10619-5, LIVR, 3040-3, CBCA, BMP #### [facility] ([id number]) [address] [place] [address] 56080 Glucose [Mass/Vol] 98 mg/dL Normal 65-99 [facility] Comment on above: Performed By: #### 8 9579-7, 89157-8, 5643-2, 12415-8, LIVR, 3040-3, CBCA, BMP #### [facility] ([id number]) [address] [place] [address] 82293 Potassium [Moles/Vol] 3.9 mmol/L Normal 3.5-5.0 [facility] Comment on above: Performed By: #### 8 9579-7, 14305-9, 5643-2, 01340-4, LIVR, 3040-3, CBCA, BMP #### [facility] ([id number]) [address] [place] [address] 42796 Sodium [Moles/Vol] 136 mmol/L Normal 134-146 [facility] Comment on above: Performed By: #### 8 9579-7, 38426-2, 5643-2, 01980-3, LIVR, 3040-3, CBCA, BMP #### [facility] ([id number]) [address] [place] [address] 13671 Urea nitrogen [Mass/Vol] 10 mg/dL Normal 5-23 [facility] Comment on above: Performed By: #### 8 9579-7, 00352-8, 5643-2, 15145-4, LIVR, 3040-3, CBCA, BMP #### [facility] ([id number]) [address] [place] [address] 45257 CBC WITH AUTO DIFFERENTIALon 10-11-2024 BASOPHILS ABSOLUTE COUNT (10*3/UL) BY AUTOMATED COUNT 0.1 10*3/uL Normal 0.0-0.2 [facility] Comment on above: Performed By: #### 8 9579-7, 05039-3, 5643-2, 65354-4, LIVR, 3040-3, CBCA, BMP #### [facility] ([id number]) [address] [place] [address] 31469 BASOPHILS RELATIVE PERCENT BY AUTOMATED COUNT 0.9 % Normal [facility] Comment on above: Performed By: #### 8 9579-7, 37435-1, 5643-2, 52722-3, LIVR, 3040-3, CBCA, BMP #### [facility] ([id number]) [address] [place] [address] 20912 CELLAVISION DIFFERENTIAL TYPE AUTOMATED DIFFERENTIAL Normal [facility] Comment on above: Performed By: #### 8 9579-7, 20126-7, 5643-2, 93267-8, LIVR, 3040-3, CBCA, BMP #### [facility] ([id number]) [address] [place] [address] 74623 Eosinophils (Bld) [#/Vol] 0.2 10*3/uL Normal 0.0-0.4 [facility] Comment on above: Performed By: #### 8 9579-7, 08941-8, 5643-2, 79288-0, LIVR, 3040-3, CBCA, BMP #### [facility] ([id number]) [address] [place] [address] 53642 EOSINOPHILS RELATIVE PERCENT BY AUTOMATED COUNT 2.8 % Normal [facility] Comment on above: Performed By: #### 8 9579-7, 98641-7, 5643-2, 10636-6, LIVR, 3040-3, CBCA, BMP #### [facility] ([id number]) [address] [place] [address] 03208 Erythrocyte distribution width (RBC) [Ratio] 13.6 % Normal 11.5-15 [facility] Comment on above: Performed By: #### 8 9579-7, 57805-4, 5643-2, 41526-2, LIVR, 3040-3, CBCA, BMP #### [facility] ([id number]) [address] [place] [address] 44470 Hematocrit (Bld) [Volume fraction] 40.5 % Normal 35-47 [facility] Comment on above: Performed By: #### 8 9579-7, 94589-6, 5643-2, 82722-3, LIVR, 3040-3, CBCA, BMP #### [facility] ([id number]) [address] [place] [address] 56870 Hemoglobin (Bld) [Mass/Vol] 13.9 g/dL Normal 11.7-15.5 [facility] Comment on above: Performed By: #### 8 9579-7, 90459-5, 5643-2, 37767-9, LIVR, 3040-3, CBCA, BMP #### [facility] ([id number]) [address] [place] [address] 13154 LYMPHOCYTES ABSOLUTE COUNT (10*3/UL) BY AUTOMATED COUNT 2.1 10*3/uL Normal 1.0-3.5 [facility] Comment on above: Performed By: #### 8 9579-7, 58167-5, 5643-2, 66718-9, LIVR, 3040-3, CBCA, BMP #### [facility] ([id number]) [address] [place] [address] 23749 LYMPHOCYTES RELATIVE PERCENT BY AUTOMATED COUNT 23.7 % Normal [facility] Comment on above: Performed By: #### 8 9579-7, 83129-9, 5643-2, 21453-8, LIVR, 3040-3, CBCA, BMP #### [facility] ([id number]) [address] [place] [address] 37504 MCH (RBC) [Entitic mass] 33.2 pg Normal 27-34 [facility] Comment on above: Performed By: #### 8 9579-7, 24263-9, 5643-2, 28196-0, LIVR, 3040-3, CBCA, BMP #### [facility] ([id number]) [address] [place] [address] 43290 MCHC (RBC) [Mass/Vol] 34.3 g/dL Normal 32-36 [facility] Comment on above: Performed By: #### 8 9579-7, 38685-4, 5643-2, 16667-4, LIVR, 3040-3, CBCA, BMP #### [facility] ([id number]) [address] [place] [address] 41752 MCV (RBC) [Entitic vol] 97 fL Normal 80-100 [facility] Comment on above: Performed By: #### 8 9579-7, 82173-2, 5643-2, 75268-0, LIVR, 3040-3, CBCA, BMP #### [facility] ([id number]) [address] [place] [address] 65571 MONOCYTES ABSOLUTE COUNT (10*3/UL) BY AUTOMATED COUNT 0.8 10*3/uL Normal 0.0-0.9 [facility] Comment on above: Performed By: #### 8 9579-7, 92342-6, 5643-2, 11322-7, LIVR, 3040-3, CBCA, BMP #### [facility] ([id number]) [address] [place] [address] 64319 MONOCYTES RELATIVE PERCENT BY AUTOMATED COUNT 8.9 % Normal [facility] Comment on above: Performed By: #### 8 9579-7, 97646-3, 5643-2, 91631-7, LIVR, 3040-3, CBCA, BMP #### [facility] ([id number]) [address] [place] [address] 47144 NEUTROPHILS ABSOLUTE COUNT BY AUTOMATED COUNT 5.6 10*3/uL Normal 1.5-6.6 [facility] Comment on above: Performed By: #### 8 9579-7, 36073-8, 5643-2, 16862-1, LIVR, 3040-3, CBCA, BMP #### [facility] ([id number]) [address] [place] [address] 39032 NEUTROPHILS RELATIVE PERCENT BY AUTOMATED COUNT 63.7 % Normal [facility] Comment on above: Performed By: #### 8 9579-7, 05027-3, 5643-2, 93782-9, LIVR, 3040-3, CBCA, BMP #### [facility] ([id number]) [address] [place] [address] 82244 Platelet mean volume (Bld) [Entitic vol] 7.7 fL Normal 7-12 [facility] Comment on above: Performed By: #### 8 9579-7, 98199-4, 5643-2, 09041-7, LIVR, 3040-3, CBCA, BMP #### [facility] ([id number]) [address] [place] [address] 39729 Platelets (Bld) [#/Vol] 244 10*3/uL Normal 150-450 [facility] Comment on above: Performed By: #### 8 9579-7, 79129-2, 5643-2, 26902-3, LIVR, 3040-3, CBCA, BMP #### [facility] ([id number]) [address] [place] [address] 71401 RBC COUNT 4.19 X10E12/L Normal 3.8-5.2 [facility] Comment on above: Performed By: #### 8 9579-7, 08010-1, 5643-2, 32284-9, LIVR, 3040-3, CBCA, BMP #### [facility] ([id number]) [address] [place] [address] 76799 WBC (Bld) [#/Vol] 8.8 10*3/uL Normal 4-11 [facility] Comment on above: Performed By: #### 8 9579-7, 71759-0, 5643-2, 13696-8, LIVR, 3040-3, CBCA, BMP #### [facility] ([id number]) [address] [place] [address] 15389 ETHANOLon 10-11-2024 Ethanol [Mass/Vol] mg/dL Normal <=0.080 [facility] Comment on above: Result Comment: This report is intended for use in clinical monitoring or management of patients. Performed By: #### 8 9579-7, 66453-5, 5643-2, 54464-6, LIVR, 3040-3, CBCA, BMP #### [facility] ([id number]) [address] [place] [address] 28402 LIPASEon 10-11-2024 Lipase [Catalytic activity/Vol] 49 U/L High 17-40 [facility] Comment on above: Performed By: #### 8 9579-7, 32503-6, 5643-2, 74884-4, LIVR, 3040-3, CBCA, BMP #### [facility] ([id number]) [address] [place] [address] 58396 LIVER PANELon 10-11-2024 Albumin [Mass/Vol] 3.9 g/dL Normal 3.2-5.3 [facility] Comment on above: Performed By: #### 8 9579-7, 67098-6, 5643-2, 74778-2, LIVR, 3040-3, CBCA, BMP #### [facility] ([id number]) [address] [place] [address] 30663 ALP [Catalytic activity/Vol] 111 U/L Normal 39-130 [facility] Comment on above: Performed By: #### 8 9579-7, 68988-0, 5643-2, 69717-2, LIVR, 3040-3, CBCA, BMP #### [facility] ([id number]) [address] [place] [address] 28686 ALT [Catalytic activity/Vol] 12 U/L Normal <=31 [facility] Comment on above: Performed By: #### 8 9579-7, 40323-1, 5643-2, 17934-3, LIVR, 3040-3, CBCA, BMP #### [facility] ([id number]) [address] [place] [address] 72447 AST [Catalytic activity/Vol] 22 U/L Normal <=41 [facility] Comment on above: Performed By: #### 8 9579-7, 08560-7, 5643-2, 91342-4, LIVR, 3040-3, CBCA, BMP #### [facility] ([id number]) [address] [place] [address] 08473 Bilirubin [Mass/Vol] 0.2 mg/dL Low 0.3-1.2 [facility] Comment on above: Performed By: #### 8 9579-7, 71862-6, 5643-2, 02873-4, LIVR, 3040-3, CBCA, BMP #### [facility] ([id number]) [address] [place] [address] 83407 Bilirubin.indirect [Mass/Vol] 0.1 mg/dL Normal <=0.4 [facility] Comment on above: Performed By: #### 8 9579-7, 81714-8, 5643-2, 19831-6, LIVR, 3040-3, CBCA, BMP #### [facility] ([id number]) [address] [place] [address] 40551 Protein [Mass/Vol] 6.8 g/dL Normal 6.0-8.0 [facility] Comment on above: Performed By: #### 8 9579-7, 10366-3, 5643-2, 19127-4, LIVR, 3040-3, CBCA, BMP #### [facility] ([id number]) [address] [place] [address] 54992 MAGNESIUMon 10-11-2024 Magnesium [Mass/Vol] 2.3 mg/dL Normal 1.8-2.6 [facility] Comment on above: Performed By: #### 8 9579-7, 11005-6, 5643-2, 03129-9, LIVR, 3040-3, CBCA, BMP #### [facility] ([id number]) [address] [place] [address] PROTIME AND INRon 10-11-2024 INR 0.9 Normal 0.9-1.2 [facility] Comment on above: Performed By: #### 8 9579-7, 92143-5, 5643-2, 16740-4, LIVR, 3040-3, CBCA, BMP #### [facility] ([id number]) [address] [place] [address] PT Coag (PPP) [Time] 10.3 s Normal 9.8-13.2 [facility] Comment on above: Performed By: #### 8 9579-7, 61378-8, 5643-2, 47768-7, LIVR, 3040-3, CBCA, BMP #### [facility] ([id number]) [address] [place] [address] CT Abdomen/Pelvis w/ Contras ton 10-10-2024 CT [...] MD Transcribed by: ELMER Technologist: ANTONI Normal [facility] BMPon 10-09-2024 Anion gap [Moles/Vol] 12 mmol/L Normal 6-16 [facility] Comment on above: Performed By: #### 2 921816 #### [facility] [address] [place] [address] BUN/Creat Ratio 11 No Units Normal 10-20 [facility] Comment on above: Performed By: #### 2 337327 #### [facility] [address] [place] [address] Calcium [Mass/Vol] 10.1 mg/dL Normal 8.9-11.1 [facility] Comment on above: Performed By: #### 2 503128 #### [facility] [address] [place] [address] Chloride [Moles/Vol] 107 mmol/L Normal 101-111 [facility] Comment on above: Performed By: #### 2 367012 #### [facility] [address] [place] [address] CO2 [Moles/Vol] 25 mmol/L Normal 21-31 [facility] Comment on above: Performed By: #### 2 283223 #### [facility] [address] [place] [address] Creatinine [Mass/Vol] 0.8 mg/dL Normal 0.5-1.3 [facility] Comment on above: Performed By: #### 2 504871 #### [facility] [address] [place] [address] Glucose [Mass/Vol] 87 mg/dL Normal 55-199 [facility] Comment on above: Performed By: #### 2 993280 #### [facility] [address] [place] [address] Potassium [Moles/Vol] 4.2 mmol/L Normal 3.5-5.3 [facility] Comment on above: Performed By: #### 2 366383 #### [facility] [address] [place] [address] Sodium [Moles/Vol] 140 mmol/L Normal 135-145 [facility] Comment on above: Performed By: #### 2 401463 #### [facility] [address] [place] [address] Urea nitrogen [Mass/Vol] 9 mg/dL Normal 5-21 [facility] Comment on above: Performed By: #### 2 421927 #### [facility] [address] [place] [address] CBC w/ Auto Diffon 08-03-202 5 Basophil Absolute 0.1 E9/L Normal 0.0-0.2 [facility] Comment on above: Performed By: #### 2 087935 #### [facility] [address] [place] [address] Basophils/100 WBC (Bld) 0.9 % Normal 0.0-2.0 [facility] Comment on above: Performed By: #### 2 869849 #### [facility] [address] [place] [address] Eos Absolute 0.2 E9/L Normal 0.0-0.5 [facility] Comment on above: Performed By: #### 2 110718 #### [facility] [address] [place] [address] Eosinophils/100 WBC (Bld) 2.8 % Normal 0.0-8.0 [facility] Comment on above: Performed By: #### 2 280833 #### [facility] [address] [place] [address] Erythrocyte distribution width (RBC) [Ratio] 13.7 % Normal 10.9-14.2 [facility] Comment on above: Performed By: #### 2 728091 #### [facility] [address] [place] [address] Hematocrit (Bld) [Volume fraction] 44.7 % Normal 34.0-46.0 [facility] Comment on above: Performed By: #### 2 549872 #### [facility] [address] [place] [address] Hemoglobin (Bld) [Mass/Vol] 15.3 g/dL Normal 12.0-16.0 [facility] Comment on above: Performed By: #### 2 745106 #### [facility] [address] [place] [address] Lymph Absolute 2.4 E9/L Normal 1.0-4.0 [facility] Comment on above: Performed By: #### 2 058634 #### [facility] [address] [place] [address] Lymphocytes/100 WBC (Bld) 31.5 % Normal 14.0-50.0 [facility] Comment on above: Performed By: #### 2 255881 #### [facility] [address] [place] [address] MCH (RBC) [Entitic mass] 33.3 pg Normal 27.0-34.0 [facility] Comment on above: Performed By: #### 2 197415 #### [facility] [address] [place] [address] MCHC (RBC) [Mass/Vol] 34.3 g/dL Normal 31.4-36.0 [facility] Comment on above: Performed By: #### 2 334639 #### [facility] [address] [place] [address] 00813 MCV (RBC) [Entitic vol] 97.0 fL Normal 80.0-100.0 [facility] Comment on above: Performed By: #### 2 694108 #### [facility] [address] [place] [address] Nicholas Absolute 0.7 E9/L Normal 0.2-1.0 [facility] Comment on above: Performed By: #### 2 391185 #### [facility] [address] [place] [address] Monocytes/100 WBC (Bld) 9.2 % Normal 4.0-14.0 [facility] Comment on above: Performed By: #### 2 431997 #### [facility] [address] [place] [address] Neutro Absolute 4.3 E9/L Normal 2.0-7.5 [facility] Comment on above: Performed By: #### 2 910264 #### [facility] [address] [place] [address] Neutro Auto 55.6 % Normal 36.0-75.0 [facility] Comment on above: Performed By: #### 2 475424 #### [facility] [address] [place] [address] Platelet 255.0 E9/L Normal 150.0-500. 0 [facility] Comment on above: Performed By: #### 2 177260 #### [facility] [address] [place] [address] Platelet mean volume (Bld) [Entitic vol] 7.7 fL Normal 6.4-10.8 [facility] Comment on above: Performed By: #### 2 707097 #### [facility] [address] [place] [address] RBC 4.6 E12/L Normal 4.3-5.9 [facility] Comment on above: Performed By: #### 2 606805 #### [facility] [address] [place] [address] WBC 7.7 E9/L Normal 4.0-11.0 [facility] Comment on above: Performed By: #### 2 432168 #### [facility] [address] [place] [address] ED Clinical Summaryon 2024 ED Clinical Summary ED Clinical Summary [address] [address] ED Clinical Summary Person Information Name: CHOIMA ARCINIEGA/[facility]_Oniel Age: 54 Years : 1970 Sex: Female Language: South Sudanese PCP: NONE, XXXX Marital Status: Visit Id: [...] 10/09/2024 17:59:13 10/09/2024 17:59:13 10/09/2024 17:59:13 ADDRESS: [address] [place] [address] [id number] [facility] DOC NOTES: MEDICAL INFORMATION: Prescriptions Given: Medications to Continue with No Changes Other Medications promethazine (promethazine 25 mg Tab) 1 Tablets By Mouth 3 times a day. Refills: 0. PATIENT EDUCATION INFORMATION: Instructions: Chronic Pancreatitis Follow up: With: Address: When: [facility] [phone] In 3 days 10/12/2024 DIAGNOSIS: 1:Abdominal pain; Chronic pancreatitis Normal [facility] ED Patient Summaryon 025 ED Patient Summary ED Patient Summary [place] [id number] Patient Discharge Instructions Person Information Name: CHIOMA ARCINIEGA Age: 54 Years Arrival Date: 10/09/2024 13:21:49 Discharge Diagnosis: 1:Abdominal pain; Chronic pancreatitis Primary Care Physician: NONE, XXXX Provider Information Primary Provider: Ish Stokes MD [facility] [employer] Presser:Marco A Aguilar PA-C The exam and treatment you received in the Emergency Department were for an urgent problem and are not intended as complete care. It is important that you follow up with a doctor, nurse practitioner, or physician???s switchboard operator assistant for ongoing care. If your symptoms become worse or you do not improve as expected and you are unable to reach your usual health care provider, you should return to the Emergency Department. We are available 24 hours a day. JANUSZ CHIOMA has been given the following list of patient education materials, prescriptions and follow-up instructions: Follow-up Instructions: With: Address: When: [facility] [phone] In 3 days 10/12/2024 In the event that this physician does not participate in your insurance network, please consult with your insurance company to find a nearby participating provider. Patient Education Materials: Chronic Pancreatitis A MESSAGE TO ALL PATIENTS REGARDING OPIOIDS PRESCRIPTION OPIOIDS: WHAT YOU NEED TO KNOW Prescription opioids can be used to help relieve ajzgqtkt-oq-ddfjwr pain and are often prescribed following a [...] be struggling with addiction, tell your health care team coordinator scheduler and ask for guidance or call [facility] (more content not included)... Normal [facility] Hep Func Panelon 10-09-2024 Albumin [Mass/Vol] 4.5 g/dL Normal 3.3-5.0 [facility] Comment on above: Performed By: #### 2 384473 #### [facility] [address] [place] [address] Albumin/Globulin [Mass ratio] 1.6 {ratio} Normal 1.1-2.2 [facility] Comment on above: Performed By: #### 2 302554 #### [facility] [address] [place] [address] Alk Phos 114 Int._Unit/L High 21-98 [facility] Comment on above: Performed By: #### 2 252595 #### [facility] [address] [place] [address] ALT 9 Int._Unit/L Normal 6-46 [facility] Comment on above: Performed By: #### 2 584622 #### [facility] [address] [place] [address] AST 18 Int._Unit/L Normal 5-43 [facility] Comment on above: Performed By: #### 2 960157 #### [facility] [address] [place] [address] Bili Direct 0.0 mg/dL Normal 0.0-0.4 [facility] Comment on above: Performed By: #### 2 243310 #### [facility] [address] [place] [address] Bili Indirect 0.3 mg/dL Normal 0.1-0.9 [facility] Comment on above: Performed By: #### 2 370529 #### [facility] [address] [place] [address] Bili Total 0.3 mg/dL Normal 0.0-1.1 [facility] Comment on above: Performed By: #### 2 323518 #### [facility] [address] [place] [address] Globulin (S) [Mass/Vol] 2.8 g/dL Normal 1.4-4.0 [facility] Comment on above: Performed By: #### 2 781193 #### [facility] [address] [place] [address] Protein [Mass/Vol] 7.3 g/dL Normal 6.0-7.8 [facility] Comment on above: Performed By: #### 2 900037 #### [facility] [address] [place] [address] Lipase Levelon 10-09-2024 Lipase Lvl 98 unit/L High 13-58 [facility] Comment on above: Performed By: #### 2 251076 #### [facility] [address] [place] [address] UA with Cult Rflxon 10-10-19 25 Color (U) Colorless Abnormal Yellow [facility] Comment on above: Result Comment: Micr oscopic readings are only performed on those samples that meet specific criteria set forth by [facility]. Performed By: #### 4 [id number] #### [facility] [address] [place] [address] Glucose (U) [Mass/Vol] Negative Normal Negative [facility] Comment on above: Performed By: #### 4 [id number] #### [facility] [address] [place] [address] Ketones Ql (U) Negative Normal Negative [facility] Comment on above: Performed By: #### 4 [id number] #### [facility] [address] [place] [address] UA Blood Negative Normal Negative [facility] Comment on above: Performed By: #### 4 [id number] #### [facility] [address] [place] [address] UA Clarity Clear Normal Clear [facility] Comment on above: Performed By: #### 4 [id number] #### [facility] [address] [place] [address] UA Leuk Est Negative Normal Negative [facility] Comment on above: Performed By: #### 4 [id number] #### [facility] [address] [place] [address] UA Nitrite Negative Normal Negative [facility] Comment on above: Performed By: #### 4 [id number] #### [facility] [address] [place] [address] UA pH 5.5 Invalid Interpretation Code 5.0-9.0 [facility] Comment on above: Performed By: #### 4 [id number] #### [facility] [address] [place] [address] UA Protein Negative Normal Negative [facility] Comment on above: Performed By: #### 4 [id number] #### [facility] [address] [place] [address] UA Spec Grav >1.050 Invalid Interpretation Code 1.005-1.03 0 [facility] Comment on above: Performed By: #### 4 [id number] #### [facility] [address] [place] [address] UA Urobilinogen Negative Normal Negative [facility] Comment on above: Performed By: #### 4 [id number] #### [facility] [address] [place] [address] Urobilinogen (U) [Mass/Vol] Negative Normal Negative [facility] Comment on above: Performed By: #### 4 [id number] #### [facility] [address] [place] [address] UA Spec Desc Clean Catch Normal [facility] Comment on above: Performed By: #### 4 [id number] #### [facility] [address] [place] [address] eGFRon 10-09-2024 eGFR 87 mL/min/1.73 m2 Normal >=59 [facility] Comment on above: Performed By: #### 1 [id number] #### [facility] [address] [place] [address] BMPon 10-03-2024 Anion gap [Moles/Vol] 10 mmol/L Normal 6-16 [facility] Comment on above: Performed By: #### 2 [id number] #### [facility] [address] [place] [address] BUN/Creat Ratio 11 No Units Normal 10-20 [facility] Comment on above: Performed By: #### 2 [id number] #### [facility] [address] [place] [address] Calcium [Mass/Vol] 9.9 mg/dL Normal 8.9-11.1 [facility] Comment on above: Performed By: #### 2 [id number] #### [facility] [address] [place] [address] Chloride [Moles/Vol] 107 mmol/L Normal 101-111 [facility] Comment on above: Performed By: #### 2 [id number] #### [facility] [address] [place] [address] CO2 [Moles/Vol] 25 mmol/L Normal 21-31 [facility] Comment on above: Performed By: #### 2 [id number] #### [facility] [address] [place] [address] Creatinine [Mass/Vol] 0.8 mg/dL Normal 0.5-1.3 [facility] Comment on above: Performed By: #### 2 [id number] #### [facility] [address] [place] [address] Glucose [Mass/Vol] 112 mg/dL Normal 55-199 [facility] Comment on above: Performed By: #### 2 [id number] #### [facility] [address] [place] [address] Potassium [Moles/Vol] 3.6 mmol/L Normal 3.5-5.3 [facility] Comment on above: Performed By: #### 2 [id number] #### [facility] [address] [place] [address] Sodium [Moles/Vol] 138 mmol/L Normal 135-145 [facility] Comment on above: Performed By: #### 2 [id number] #### [facility] [address] [place] [address] Urea nitrogen [Mass/Vol] 9 mg/dL Normal 5-21 [facility] Comment on above: Performed By: #### 2 [id number] #### [facility] [address] [place] [address] CBC w/ Auto Diffon 5 Basophil Absolute 0.1 E9/L Normal 0.0-0.2 [facility] Comment on above: Performed By: #### 2 [id number] #### [facility] [address] [place] [address] Basophils/100 WBC (Bld) 1.1 % Normal 0.0-2.0 [facility] Comment on above: Performed By: #### 2 [id number] #### [facility] [address] [place] [address] Eos Absolute 0.1 E9/L Normal 0.0-0.5 [facility] Comment on above: Performed By: #### 2 [id number] #### [facility] [address] [place] [address] Eosinophils/100 WBC (Bld) 1.4 % Normal 0.0-8.0 [facility] Comment on above: Performed By: #### 2 [id number] #### [facility] [address] [place] [address] Erythrocyte distribution width (RBC) [Ratio] 13.5 % Normal 10.9-14.2 [facility] Comment on above: Performed By: #### 2 [id number] #### [facility] [address] [place] [address] Hematocrit (Bld) [Volume fraction] 42.5 % Normal 34.0-46.0 [facility] Comment on above: Performed By: #### 2 [id number] #### [facility] [address] [place] [address] Hemoglobin (Bld) [Mass/Vol] 14.3 g/dL Normal 12.0-16.0 [facility] Comment on above: Performed By: #### 2 352975 #### [facility] [address] [place] [address] Lymph Absolute 2.8 E9/L Normal 1.0-4.0 [facility] Comment on above: Performed By: #### 2 069459 #### [facility] [address] [place] [address] Lymphocytes/100 WBC (Bld) 27.2 % Normal 14.0-50.0 [facility] Comment on above: Performed By: #### 2 [id number] #### [facility] [address] [place] [address] MCH (RBC) [Entitic mass] 32.6 pg Normal 27.0-34.0 [facility] Comment on above: Performed By: #### 2 [id number] #### [facility] [address] [place] [address] MCHC (RBC) [Mass/Vol] 33.7 g/dL Normal 31.4-36.0 [facility] Comment on above: Performed By: #### 2 [id number] #### [facility] [address] [place] [address] MCV (RBC) [Entitic vol] 96.8 fL Normal 80.0-100.0 [facility] Comment on above: Performed By: #### 2 707976 #### [facility] [address] [place] [address] Nicholas Absolute 0.9 E9/L Normal 0.2-1.0 [facility] Comment on above: Performed By: #### 2 [id number] #### [facility] [address] [place] [address] Monocytes/100 WBC (Bld) 8.9 % Normal 4.0-14.0 [facility] Comment on above: Performed By: #### 2 [id number] #### [facility] [address] [place] [address] Neutro Absolute 6.3 E9/L Normal 2.0-7.5 [facility] Comment on above: Performed By: #### 2 652764 #### [facility] [address] [place] [address] Neutro Auto 61.4 % Normal 36.0-75.0 [facility] Comment on above: Performed By: #### 2 192170 #### [facility] [address] [place] [address] Platelet 296.0 E9/L Normal 150.0-500. 0 [facility] Comment on above: Performed By: #### 2 [id number] #### [facility] [address] [place] [address] Platelet mean volume (Bld) [Entitic vol] 7.9 fL Normal 6.4-10.8 [facility] Comment on above: Performed By: #### 2 [id number] #### [facility] [address] [place] [address] RBC 4.4 E12/L Normal 4.3-5.9 [facility] Comment on above: Performed By: #### 2 [id number] #### [facility] [address] [place] [address] WBC 10.3 E9/L Normal 4.0-11.0 [facility] Comment on above: Performed By: #### 2 441510 #### [facility] [address] [place] [address] ED Clinical Summaryon 2024 ED Clinical Summary ED Clinical Summary [address] [address] ED Clinical Summary Person Information Name: CHIOMA ARCINIEGA [facility] Age: 54 Years : 1970 Sex: Female Language: South [place]ese PCP: NONE, XXXX Marital Status: Visit Id: [...] 10/03/2024 18:49:22 10/03/2024 18:49:22 10/03/2024 18:49:22 ADDRESS: [address] [place], [place] [address] [id number] PHYS DOC NOTES: MEDICAL INFORMATION: Prescriptions Given: New Medications Printed Prescriptions promethazine (promethazine 25 mg Tab) 1 Tablets By Mouth 3 times a day. Refills: 0. PATIENT EDUCATION INFORMATION: Instructions: Chronic Pancreatitis Follow up: With: Address: When: XXXX NONE , [place] In 3 days 10/06/2024 Comments: follow up with your GI physician DIAGNOSIS: Chronic pancreatitis Normal [facility] ED Note-Physicianon 10-04-19 ED Note-Physician ED [...] relief. Follows with GI out of the [facility] Review of Systems A 10 point [...] made to ensure accuracy, however, inadvertently computerized oracle specialist mistakes may be present. Appropriate healthcare PPE [...] (10/03/24 1 (more content not included)... Normal [facility] Comment on above: Result Comment: Elec tronically Signed By: Levar Jara PA-C\.br\Date and Time Signed: 10/03/24 18:38 EDT\.br\Electronically Co-Signed By: Darrel Ferrer DO\.br\Date and Time Co-Signed: 10/03/24 18:48 EDT ED Patient Summaryon 025 ED Patient Summary ED Patient Summary [address] [address] Patient Discharge Instructions Person Information Name: CHIOMA ARCINIEGA Age: 54 Years Arrival Date: 10/03/2024 17:23:23 Discharge Diagnosis: Chronic pancreatitis Primary Care Physician: NONE, XXXX Provider Information Primary Provider: Darrel Ferrer DO [employer] Presser:Levar Jara PA-C The exam and treatment you received in the Emergency Department were for an urgent problem and are not intended as complete care. It is important that you follow up with a doctor, nurse practitioner, or physician???s switchboard operator assistant for ongoing care. If your symptoms [...] opioids can be used to help relieve [id number] pain and are often prescribed following a [...] be struggling with addiction, tell your health care team coordinator scheduler and ask for guidance or call (more content not included)... Normal [facility] Extra Blueon 10-03-2024 Tube Collected Plasma Yes Invalid Interpretation Code [facility] Comment on above: Performed By: #### 1 [id number] #### [facility] [address] [place] [address] Hep Func Panelon 10-03-2024 Albumin [Mass/Vol] 4.5 g/dL Normal 3.3-5.0 [facility] Comment on above: Performed By: #### 2 [id number] #### [facility] [address] [place] [address] Albumin/Globulin [Mass ratio] 1.8 {ratio} Normal 1.1-2.2 [facility] Comment on above: Performed By: #### 2 [id number] #### [facility] [address] [place] [address] Alk Phos 109 Int._Unit/L High 21-98 [facility] Comment on above: Performed By: #### 2 [id number] #### [facility] [address] [place] [address] ALT 9 Int._Unit/L Normal 6-46 [facility] Comment on above: Performed By: #### 2 [id number] #### [facility] [address] [place] [address] AST 16 Int._Unit/L Normal 5-43 [facility] Comment on above: Performed By: #### 2 [id number] #### [facility] [address] [place] [address] Bili Direct 0.0 mg/dL Normal 0.0-0.4 [facility] Comment on above: Performed By: #### 2 457747 #### [facility] [address] [place] [address] Bili Indirect 0.3 mg/dL Normal 0.1-0.9 [facility] Comment on above: Performed By: #### 2 054203 #### [facility] [address] [place] [address] Bili Total 0.3 mg/dL Normal 0.0-1.1 [facility] Comment on above: Performed By: #### 2 [id number] #### [facility] [address] [place] [address] Globulin (S) [Mass/Vol] 2.5 g/dL Normal 1.4-4.0 [facility] Comment on above: Performed By: #### 2 [id number] #### [facility] [address] [place] [address] Protein [Mass/Vol] 7.0 g/dL Normal 6.0-7.8 [facility] Comment on above: Performed By: #### 2 [id number] #### [facility] [address] [place] [address] Lipase Levelon 10-03-2024 Lipase Lvl 199 unit/L High 13-58 [facility] Comment on above: Performed By: #### 2 [id number] #### [facility] [address] [place] [address] eGFRon 10-03-2024 eGFR 87 mL/min/1.73 m2 Normal >=59 [facility] Comment on above: Performed By: #### 1 [id number] #### [facility] [address] [place] [address] CBC with Auto Differentialon 09-27-2024 Basophils (Bld) [#/Vol] 0.08 10*3/uL [facility] Basophils/100 WBC (Bld) 1 % 0 - 2 % [facility] Eosinophils (Bld) [#/Vol] 0.08 10*3/uL [facility] Eosinophils/100 WBC (Bld) 1 [...] Immature granulocytes/100 WBC (Bld) 0 % 0 [facility] Interpretation and review of laboratory results Abnormal [facility] Lymphocytes/100 WBC (Bld) 26 % 24 - 43 % [facility] Lymphocytes/100 WBC (Bld) 2.13 % [facility] MCH (RBC) [Entitic mass] 33.2 pg 25.2 - 33.5 pg [facility] MCHC (RBC) [Mass/Vol] 34.3 g/dL 28.4 - 34.8 g/dL [facility] MCV (RBC) [Entitic vol] 96.8 fL 82.6 - 102.9 fL [facility] Monocytes/100 WBC (Bld) 9 % 3 - 12 % [facility] Monocytes/100 WBC (Bld) 0.74 % [facility] Morphology Syed (Bld) [Interp] Normal [facility] Neutrophils/100 WBC (Bld) 63 % 36 - 65 % [facility] Nucleated RBC/100 WBC (Bld) [Ratio] 0 % 0.0 per 100 WBC [facility] Platelet, Fluorescence [facility] Platelets (Bld) [#/Vol] See Reflexed IPF Result [facility] Platelets reticulated/100 platelets Auto (Bld) 2.4 % 1.1 - 10.3 % [facility] RBC (Bld) [#/Vol] 4.67 10*6/uL 3.95 - 5.11 m/uL [facility] Segmented neutrophils/100 WBC (Bld) 5.17 % [facility] WBC other (Bld) [#/Vol] 8.2 [facility] CBC with Diffon 09-27-2024 Abs. Basophil 0.08 k/uL Normal 0.0-0.2 [facility] Comment on above: Performed By: #### L WALTER ROONEY, CP #### [facility] [address] [place] [address] [employer] Installer: Ion Jasso MD Abs.Imm.Granulocyte 0.00 k/uL Normal 0.00-0.30 [facility] Comment on above: Performed By: #### L WALTER ROONEY, CP #### [facility] [address] [place], [place] [address] [employer] Installer: Ion Jasso MD Abs.Neutrophil (Seg) 5.17 k/uL Normal 1.50-8.10 [facility] Comment on above: Performed By: #### L IP, CDP, CP #### [facility] [address] [place] [address] Dr[address] [place], [facility]83 [employer] Installer: Ion Jasso MD Basophils/100 WBC (Bld) 1 % Normal 0-2 [facility] Comment on above: Performed By: #### L IP, CDP, CP #### [address] [place], [facility]83 [employer] Installer: Ion Jasso MD Eosinophils (Bld) [#/Vol] 0.08 10*3/uL Normal 0.00-0.44 [facility] Comment on above: Performed By: #### L IP, CDP, CP #### [address] [place], [place] [address] [employer] Installer: Ion Jasso MD Eosinophils/100 WBC (Bld) 1 % Normal 1-4 [facility] Comment on above: Performed By: #### L IP, CDP, CP #### [address] [place], [facility]83 [employer] Installer: Ion Jasso MD Immature granulocytes/100 WBC (Bld) 0 % Normal 0 [facility] Comment on above: Performed By: #### L IP, CDP, CP #### [address] [place], [facility]83 [employer] Installer: Ion Jasso MD Lymphocytes (Bld) [#/Vol] 2.13 10*3/uL Normal 1.10-3.70 [facility] Comment on above: Performed By: #### L IP, CDP, CP #### [address] [place], [place] [id number] [employer] Installer: Ion Jasso MD Lymphocytes/100 WBC (Bld) 26 % Normal 24-43 [facility] Comment on above: Performed By: #### L IP, CDP, CP #### [facility] [address] [place], [place] [address]383 [employer] Installer: Ion Jasso MD Monocytes (Bld) [#/Vol] 0.74 10*3/uL Normal 0.10-1.20 [facility] Comment on above: Performed By: #### L IP, CDP, CP #### [facility] [address] [place], [facility]83 [employer] Installer: Ion Jasso MD Monocytes/100 WBC (Bld) 9 % Normal 3-12 [facility] Comment on above: Performed By: #### L IP, CDP, CP #### [address] [place], [facility]83 [employer] Installer: Ion Jasso MD Morphology Syed (Bld) [Interp] Normal Normal [facility] Comment on above: Performed By: #### L IP, CDP, CP #### [address] [place], [facility]83 [employer] Installer: Ion Jasso MD Neutrophil (Seg) 63 % Normal 36-65 [facility] Comment on above: Performed By: #### L IP, CDP, CP #### [facility] [address] [place], [facility]83 [employer] Installer: Ion Jasso MD Platelet, Fluoresc. 159 k/uL Normal 138-453 [facility] Comment on above: Performed By: #### L IP, CDP, CP #### [facility] [address] [place] [address] [employer] Installer: Ion Jasso MD PLT, Immature Fract. 2.4 % Normal 1.1-10.3 [facility] Comment on above: Performed By: #### L IP, CDP, CP #### [address] [place] [address] [employer] Installer: Ion Jasso MD Erythrocyte distribution width (RBC) [Ratio] 13.0 % Normal 11.8-14.4 [facility] Comment on above: Performed By: #### L IP, CDP, CP #### [address] [place] [address] [employer] Installer: Ion Jasso MD Hematocrit (Bld) [Volume fraction] 45.2 % Normal 36.3-47.1 [facility] Comment on above: Performed By: #### L IP, CDP, CP #### [address] [place] [address] [employer] Installer: Ion Jasso MD Hemoglobin (Bld) [Mass/Vol] 15.5 g/dL High 11.9-15.1 [facility] Comment on above: Performed By: #### L IP, CDP, CP #### [address] [place] [address] [employer] Installer: Ion Jasso MD MCH (RBC) [Entitic mass] 33.2 pg Normal 25.2-33.5 [facility] Comment on above: Performed By: #### L IP, CDP, CP #### [address] [place] [address] [employer] Installer: Ion Jasso MD MCHC (RBC) [Mass/Vol] 34.3 g/dL Normal 28.4-34.8 [facility] Comment on above: Performed By: #### L IP, CDP, CP #### [address] [place] [address] [employer] Installer: Ion Jasso MD MCV (RBC) [Entitic vol] 96.8 fL Normal 82.6-102.9 [facility] Comment on above: Performed By: #### L IP, CDP, CP #### [address] [place], [place] [address]283 [employer] Installer: Ion Jasso MD NRBC Automated 0.0 per 100 WBC Normal 0.0 [facility] Comment on above: Performed By: #### L IP, CDP, CP #### [address] [place], [place] [address]83 [employer] Installer: Ion Jasso MD Platelet Count See Reflexed IPF Result Normal 138-453 [facility] Comment on above: Performed By: #### L IP, CDP, CP #### [address] [place], [place] [address]83 [employer] Installer: oIn Jasso MD RBC (Bld) [#/Vol] 4.67 10*6/uL Normal 3.95-5.11 [facility] Comment on above: Performed By: #### L IP, CDP, CP #### [address] [place], [place] [address]283 [employer] Installer: Ion Jasso MD WBC (Bld) [#/Vol] 8.2 10*3/uL Normal 3.5-11.3 [facility] Comment on above: Performed By: #### L IP, CDP, CP #### [address] [place], [place] [address]689483 [employer] Installer: Ion Jasso MD Comp Metabolic Profon 2024 Albumin [Mass/Vol] 4.6 g/dL Normal 3.5-5.2 [facility] Comment on above: Performed By: #### L IP, CDP, CP #### [address] [place], [place] [address]83 [employer] Installer: Ion Jasso MD Albumin/Glob Ratio 1.6 Normal 1.0-2.5 [facility] Comment on above: Performed By: #### L IP, CDP, CP #### [address] [place], [place] [address]83 [employer] Installer: Ion Jasso MD Alkaline Phos 145 U/L High 35-104 [facility] Comment on above: Performed By: #### L IP, CDP, CP #### [facility] [address] [place], [place] [address]83 [employer] Installer: Ion Jasso MD ALT [Catalytic activity/Vol] 12 U/L Normal 10-35 [facility] Comment on above: Performed By: #### L IP, CDP, CP #### [facility] [address] [place], [place] [address]83 [employer] Installer: Ion Jasso MD Anion gap [Moles/Vol] 15 mmol/L Normal 9-16 [facility] Comment on above: Performed By: #### L IP, CDP, CP #### [facility] [address] [place], [place] [address]83 [employer] Installer: Ino Jasso MD AST [Catalytic activity/Vol] 24 U/L Normal 10-35 [facility] Comment on above: Performed By: #### L IP, CDP, CP #### [facility] [address] [place], [place] [address]83 [employer] Installer: Ion Jasso MD Bilirubin [Mass/Vol] 0.3 mg/dL Normal 0.00-1.20 [facility] Comment on above: Performed By: #### L IP, CDP, CP #### [facility] [address] [place], [place] [address] [employer] Installer: Ion Jasso MD BUN/CRE Ratio 10 Normal 9-20 [facility] Comment on above: Performed By: #### L IP, CDP, CP #### [facility] [address] [place] [address] [employer] Installer: Ion Jasso MD Calcium [Mass/Vol] 10.1 mg/dL Normal 8.6-10.4 [facility] Comment on above: Performed By: #### L IP, CDP, CP #### [facility] [address] [place], [place] [address]83 [employer] Installer: Ion Jasso MD Chloride [Moles/Vol] 103 mmol/L Normal 98-107 [facility] Comment on above: Performed By: #### L IP, CDP, CP #### [facility] [address] [place], [place] [id number] [employer] Installer: Ion Jasso MD CO2 [Moles/Vol] 21 mmol/L Normal 20-31 [facility] Comment on above: Performed By: #### L IP, CDP, CP #### [facility] [address] [place], [place] [id number] [employer] Installer: Ion Jasso MD Creatinine [Mass/Vol] 0.8 mg/dL Normal 0.50-0.90 [facility] Comment on above: Performed By: #### L TORIBIO CDP, CP #### [facility] [address] [place], [facility]83 [employer] Installer: Ion Jasso MD GFR/1.73 sq M.predicted among [...] By: #### L IP, CDP, CP #### [facility] [address] [place] [address] [employer] Installer: Ion Jasso MD Glucose [Mass/Vol] 91 mg/dL Normal 74-99 [facility] Comment on above: Performed By: #### L IP CDP, CP #### [facility] [address] [place] [address] [employer] Installer: Ion Jasso MD Potassium [Moles/Vol] 4.2 mmol/L Normal 3.7-5.3 [facility] Comment on above: Result Comment: Spec imen hemolysis has exceeded the interference as defined by Joycelyn. Value may be falsely increased. Suggest recollection if clinically indicated. Performed By: #### L IP CDP, CP #### [facility] [address] [place] [address] [employer] Installer: Ion Jasso MD Protein [Mass/Vol] 7.5 g/dL Normal 6.6-8.7 [facility] Comment on above: Performed By: #### L WALTER ROONEY, CP #### [facility] [address] [place] [address] [place] [address] [employer] Installer: Ion Jasso MD Sodium [Moles/Vol] 139 mmol/L Normal 136-145 [facility] Comment on above: Performed By: #### L WALTER ROONEY, CP #### [address] [place] [address] [employer] Installer: Ion Jasso MD Urea nitrogen [Mass/Vol] 8 mg/dL Normal 6-20 [facility] Comment on above: Performed By: #### L TORIBIO CDP, CP #### [facility] [address] [place] [address] [place] [address] [employer] Installer: Ion Jasso MD Comprehensive Metabolic Pane [facility] 09-27-2024 Albumin [Mass/Vol] 4.6 g/dL 3.5 - 5.2 g/dL [facility] Albumin/Globulin [Mass ratio] 1.6 {ratio} 1.0 - 2.5 [facility] ALP [Catalytic activity/Vol] 145 U/L High 35 - 104 U/L [facility] ALT [Catalytic activity/Vol] 12 U/L 10 - 35 U/L [facility] Anion gap [Moles/Vol] 15 mmol/L 9 - 16 mmol/L [facility] AST [Catalytic activity/Vol] 24 U/L 10 - 35 U/L [facility] Bilirubin [Mass/Vol] 0.3 mg/dL 0.00 - 1.20 mg/dL [facility] Calcium [Mass/Vol] 10.1 mg/dL 8.6 - 10. 4 mg/dL [facility] Chloride [Moles/Vol] 103 mmol/L 98 - 10 7 mmol/L [facility] CO2 [Moles/Vol] 21 mmol/L 20 - 31 mmol/L [facility] Creatinine [Mass/Vol] 0.8 mg/dL 0.50 - 0.90 mg/dL [facility] Kaylyn Prather Rate - PINF [facility] Comment on above: These [...] [Mass/Vol] 91 mg/dL 74 - 99 mg/dL [facility] Interpretation and review of laboratory results Abnormal [facility] Potassium [Moles/Vol] 4.2 mmol/L 3.7 - 5.3 mmol/L [facility] Comment on above: Specimen hemolysis h as exceeded the interference as defined by Joycelyn. Value may be falsely increased. Suggest recollection if clinically indicated. Protein [Mass/Vol] 7.5 g/dL 6.6 - 8.7 g/dL [facility] Sodium [Moles/Vol] 139 mmol/L 136 - 145 mmol/L [facility] Urea nitrogen [Mass/Vol] 8 mg/dL 6 - 20 mg/dL [facility] Urea nitrogen/Creatinine [Mass ratio] 10 mg/mg 9 - 20 [facility] Lactic Acidon 09-27-2024 Lactate (BldV) [Moles/Vol] 1.0 mmol/L 0.5 - 2.2 mmol/L [facility] Lactate [Moles/Vol] 1.0 mmol/L Normal 0.5-2.2 [facility] Comment on above: Performed By: #### L WALTER ROONEY, CP #### [facility] [address] [place] [address] [employer] Installer: Ion Jasso MD Lipaseon 09-27-2024 Lipase [Catalytic activity/Vol] 48 U/L 13 - 60 U/L [facility] Lipase [Catalytic activity/Vol] 48 U/L Normal 13-60 [facility] Comment on above: Performed By: #### L WALTER ROONEY, CP #### [facility] [address] [place] [address] [employer] Installer: Ion Jasso MD No Panel Informationon 09-27 [facility] CBC with Auto Differentialon 09-20-2024 Basophils (Bld) [#/Vol] 0.06 10*3/uL [facility] Basophils/100 WBC (Bld) 1 % 0 - 2 % [facility] Eosinophils (Bld) [#/Vol] 0.17 10*3/uL [facility] Eosinophils/100 WBC (Bld) 2 % 1 - 4 % [facility] Erythrocyte distribution width (RBC) [Ratio] 13.1 % 11.8 - 14.4 % [facility] Hematocrit (Bld) [Volume fraction] 42 % 36.3 - 47.1 % [facility] Hemoglobin (Bld) [Mass/Vol] 14.4 g/dL 11.9 - 15.1 g/dL [facility] Immature granulocytes (Bld) [#/Vol] 0.03 10*3/uL [facility] Immature granulocytes/100 WBC (Bld) 0 % 0 [facility] Lymphocytes/100 WBC (Bld) 28 % 24 - 43 % [facility] Lymphocytes/100 WBC (Bld) 2.98 % [facility] MCH (RBC) [Entitic mass] 33.3 pg 25.2 - 33.5 pg [facility] MCHC (RBC) [Mass/Vol] 34.3 g/dL 28.4 - 34.8 g/dL [facility] MCV (RBC) [Entitic vol] 97.2 fL 82.6 - 102.9 fL [facility] Monocytes/100 WBC (Bld) 9 % 3 - 12 % [facility] Monocytes/100 WBC (Bld) 0.96 % [facility] Neutrophils/100 WBC (Bld) 60 % 36 - 65 % [facility] Nucleated RBC/100 WBC (Bld) [Ratio] 0 % 0.0 per 100 WBC [facility] Platelet mean volume (Bld) [Entitic vol] 9.7 fL 8.1 - 13.5 fL [facility] Platelets (Bld) [#/Vol] 258 10*3/uL [facility] RBC (Bld) [#/Vol] 4.32 10*6/uL 3.95 - 5.11 m/uL [facility] Segmented neutrophils/100 WBC (Bld) 6.53 % [facility] WBC other (Bld) [#/Vol] 10.7 [facility] CBC with Diffon 09-20-2024 Abs. Basophil 0.06 k/uL Normal 0.00-0.20 [facility] Comment on above: Performed By: #### L HARITHA ROONEY, CDP #### [facility] [address] [place] [address] [place] [address] [employer] Installer: Ion Jsaso MD Abs.Imm.Granulocyte 0.03 k/uL Normal 0.00-0.30 [facility] Comment on above: Performed By: #### L HARITHA ROONEY, CDP #### [facility] [address] [place] [address] [place] [address] [employer] Installer: Ion Jasos MD Abs.Neutrophil (Seg) 6.53 k/uL Normal 1.50-8.10 [facility] Comment on above: Performed By: #### L IP, CP, CDP #### [address] [place], [facility]83 [employer]er: Ion Jasso MD Basophils/100 WBC (Bld) 1 % Normal 0-2 [facility] Comment on above: Performed By: #### L IP, CP, CDP #### [address] [place], [facility]83 [employer]er: Ion Jasso MD Eosinophils (Bld) [#/Vol] 0.17 10*3/uL Normal 0.00-0.44 [facility] Comment on above: Performed By: #### L IP, CP, CDP #### [address] [place] [id number] [employer]er: Ion Jasso MD Eosinophils/100 WBC (Bld) 2 % Normal 1-4 [facility] Comment on above: Performed By: #### L IP, CP, CDP #### [address] [place] [address] [employer]er: Ion Jasso MD Erythrocyte distribution width (RBC) [Ratio] 13.1 % Normal 11.8-14.4 [facility] Comment on above: Performed By: #### L IP, CP, CDP #### [address] [place] [id number] [employer]er: Ion Jasso MD Hematocrit (Bld) [Volume fraction] 42.0 % Normal 36.3-47.1 [facility] Comment on above: Performed By: #### L IP, CP, CDP #### [address] [place] [id number] [employer] Installer: Ion Jasso MD Hemoglobin (Bld) [Mass/Vol] 14.4 g/dL Normal 11.9-15.1 [facility] Comment on above: Performed By: #### L IP, CP, CDP #### [facility] [address] [place], [place] [address]83 [employer]er: Ion Jasso MD Immature granulocytes/100 WBC (Bld) 0 % Normal 0 [facility] Comment on above: Performed By: #### L IP, CP, CDP #### [address] [place], [place] 640[address]83 [employer]er: Ion Jasso MD Lymphocytes (Bld) [#/Vol] 2.98 10*3/uL Normal 1.10-3.70 [facility] Comment on above: Performed By: #### L IP, CP, CDP #### [address] [place], [place] [address]2783 [employer]er: Ion Jasso MD Lymphocytes/100 WBC (Bld) 28 % Normal 24-43 [facility] Comment on above: Performed By: #### L IP, CP, CDP #### [address] [place], [facility]83 [employer]er: Ion Jasso MD MCH (RBC) [Entitic mass] 33.3 pg Normal 25.2-33.5 [facility] Comment on above: Performed By: #### L IP, CP, CDP #### [address] [place], [place] [address]83 [employer]er: Ion Jasso MD MCHC (RBC) [Mass/Vol] 34.3 g/dL Normal 28.4-34.8 [facility] Comment on above: Performed By: #### L IP, CP, CDP #### [address] [place], [place] [id number] [employer]er: Ion Jasso MD MCV (RBC) [Entitic vol] 97.2 fL Normal 82.6-102.9 [facility] Comment on above: Performed By: #### L IP, CP, CDP #### [address] [place], [facility]83 [employer]er: Ion Jasso MD Monocytes (Bld) [#/Vol] 0.96 10*3/uL Normal 0.10-1.20 [facility] Comment on above: Performed By: #### L IP, CP, CDP #### [facility] [address] [place] [address] Dr. [place], [facility]83 [employer]er: Ion Jasso MD Monocytes/100 WBC (Bld) 9 % Normal 3-12 [facility] Comment on above: Performed By: #### L IP, CP, CDP #### [address] [place], [place] [address] [employer]er: Ion Jasso MD Neutrophil (Seg) 60 % Normal 36-65 [facility] Comment on above: Performed By: #### L IP, CP, CDP #### [address] [place], [facility]83 [employer]er: Ion Jasso MD NRBC Automated 0.0 per 100 WBC Normal 0.0 [facility] Comment on above: Performed By: #### L IP, CP, CDP #### [address] [place], [facility]83 [employer]er: Ion Jasso MD Platelet mean volume (Bld) [Entitic vol] 9.7 fL Normal 8.1-13.5 [facility] Comment on above: Performed By: #### L IP, CP, CDP #### [facility] [address] [place] [address] Dr. [place], [facility]83 [employer]er: Ion Jasso MD Platelets (Bld) [#/Vol] 258 10*3/uL Normal 138-453 [facility] Comment on above: Performed By: #### L IP, CP, CDP #### [address] [place], [facility]83 [employer]er: Ino Jasso MD RBC (Bld) [#/Vol] 4.32 10*6/uL Normal 3.95-5.11 [facility] Comment on above: Performed By: #### L TORIBIO CP, CDP #### [facility] [address] [place], [place] [phone] [employer]er: Ion Jasso MD WBC (Bld) [#/Vol] 10.7 10*3/uL Normal 3.5-11.3 [facility] Comment on above: Performed By: #### L IP, CP, CDP #### [facility] [address] [place], [place] [address]83 [employer]er: Ion Jasso MD Comp Metabolic Profon 2024 Albumin [Mass/Vol] 4.4 g/dL Normal 3.5-5.2 [facility] Comment on above: Performed By: #### L HARITHA ROONEY, CDP #### [address] [place], [place] [address]83 [employer]er: Ion Jasso MD Albumin/Glob Ratio 1.8 Normal 1.0-2.5 [facility] Comment on above: Performed By: #### L HARITHA ROONEY, CDP #### [address] [place], [place] [address]67883 [employer]er: Ion Jasso MD Alkaline Phos 127 U/L High 35-104 [facility] Comment on above: Performed By: #### L TORIBIO CP, CDP #### [facility] [address] [place], [place] [address]483 [employer]er: Ion Jasso MD ALT [Catalytic activity/Vol] 10 U/L Normal 10-35 [facility] Comment on above: Performed By: #### L IP CP, CDP #### [facility] [address] [place], [place] [address]83 [employer]er: Ion Jasso MD Anion gap [Moles/Vol] 12 mmol/L Normal 9-16 [facility] Comment on above: Performed By: #### L IP, CP, CDP #### [facility] [address] [place], [place] [address]83 [employer]er: Ion Jasso MD AST [Catalytic activity/Vol] 19 U/L Normal 10-35 [facility] Comment on above: Performed By: #### L IP, CP, CDP #### [facility] [address] [place], [place] 5797183 [employer]er: Ion Jasso MD Bilirubin [Mass/Vol] mg/dL Normal 0.00-1.20 [facility] Comment on above: Performed By: #### L IP, CP, CDP #### [facility] [address] [place], [place] [address] [employer]er: Ion Jasso MD BUN/CRE Ratio 9 Normal 9-20 [facility] Comment on above: Performed By: #### L IP, CP, CDP #### [facility] [address] [place] [address] Dr[place], [place] 5785083 [employer]er: Ion Jasso MD Calcium [Mass/Vol] 9.6 mg/dL Normal 8.6-10.4 [facility] Comment on above: Performed By: #### L IP, CP, CDP #### [address] [place], [place] [address]47[address]83 [employer]er: Ion Jasso MD Chloride [Moles/Vol] 105 mmol/L Normal 98-107 [facility] Comment on above: Performed By: #### L IP, CP, CDP #### [facility] [address] [place], [place] [phone] [employer]er: Ion Jasso MD CO2 [Moles/Vol] 23 mmol/L Normal 20-31 [facility] Comment on above: Performed By: #### L IP, CP, CDP #### [facility] [address] [place] [address] [employer] Installer: Ion Jasso MD Creatinine [Mass/Vol] 0.9 mg/dL Normal 0.50-0.90 [facility] Comment on above: Performed By: #### L TORIBIO CP, CDP #### [address] [place] [address] [employer]er: Ion Jasso MD GFR/1.73 sq M.predicted among [...] By: #### L IP CP, CDP #### [address] [place] [address] [employer]er: Ion Jasso MD Glucose [Mass/Vol] 97 mg/dL Normal 74-99 [facility] Comment on above: Performed By: #### L TORIBIO CP, CDP #### [address] [place] [address] [employer]er: Ion Jasso MD Potassium [Moles/Vol] 4.4 mmol/L Normal 3.7-5.3 [facility] Comment on above: Performed By: #### L IP CP, CDP #### [address] [place] [address] [employer] Installer: Ion Jasso MD Protein [Mass/Vol] 6.8 g/dL Normal 6.6-8.7 [facility] Comment on above: Performed By: #### L IP, CP, CDP #### [facility] [address] [place], [place] [phone] [employer] Installer: Ion Jasso MD Sodium [Moles/Vol] 140 mmol/L Normal 136-145 [facility] Comment on above: Performed By: #### L IP, CP, CDP #### [facility] [address] [place], [place] [address]83 [employer]er: Ion Jasso MD Urea nitrogen [Mass/Vol] 8 mg/dL Normal 6-20 [facility] Comment on above: Performed By: #### L TORIBIO, HARITHA, CDP #### [facility] [address] [place] [address] [employer] Installer: Ion Jasso MD Comprehensive Metabolic Pane [facility] 09-20-2024 Albumin [Mass/Vol] 4.4 g/dL 3.5 - 5.2 g/dL [facility] Albumin/Globulin [Mass ratio] 1.8 {ratio} 1.0 - 2.5 [facility] ALP [Catalytic activity/Vol] 127 U/L High 35 - 104 U/L [facility] ALT [Catalytic activity/Vol] 10 U/L 10 - 35 U/L [facility] Anion gap [Moles/Vol] 12 mmol/L 9 - 16 mmol/L [facility] AST [Catalytic activity/Vol] 19 U/L 10 - 35 U/L [facility] Bilirubin [Mass/Vol] mg/dL 0.00 - 1.20 mg/dL [facility] Calcium [Mass/Vol] 9.6 mg/dL 8.6 - 10. 4 mg/dL [facility] Chloride [Moles/Vol] 105 mmol/L 98 - 10 7 mmol/L [facility] CO2 [Moles/Vol] 23 mmol/L 20 - 31 mmol/L [facility] Creatinine [Mass/Vol] 0.9 mg/dL 0.50 - 0.90 mg/dL [facility] Est, Glom Filt Rate 77 - PINF [facility] Comment on above: These [...] [Mass/Vol] 97 mg/dL 74 - 99 mg/dL [facility] Potassium [Moles/Vol] 4.4 mmol/L 3.7 - 5.3 mmol/L [facility] Protein [Mass/Vol] 6.8 g/dL 6.6 - 8.7 g/dL [facility] Sodium [Moles/Vol] 140 mmol/L 136 - 145 mmol/L [facility] Urea nitrogen [Mass/Vol] 8 mg/dL 6 - 20 mg/dL [facility] Urea nitrogen/Creatinine [Mass ratio] 9 mg/mg 9 - 20 [facility] Lactic Acidon 09-20-2024 Lactate (BldV) [Moles/Vol] 1.2 mmol/L 0.5 - 2.2 mmol/L [facility] Lactate [Moles/Vol] 1.2 mmol/L Normal 0.5-2.2 [facility] Comment on above: Performed By: #### L WALTER ROONEY, CP #### [facility] [address] [place] [address] [employer] Installer: Ion Jasso MD Lipaseon 09-20-2024 Lipase [Catalytic activity/Vol] 89 U/L High 13 - 60 U/L [facility] Lipase [Catalytic activity/Vol] 89 U/L High 13-60 [facility] Comment on above: Performed By: #### L HARITHA ROONEY, WALTER #### [facility] [address] [place] [address] [employer] Installer: Ion Jasso MD No Panel Informationon 09-20 Interpretation and review of laboratory results Abnormal [facility] Urinalysis w/ Microon 2024 Bacteria 2+ Abnormal NONE [facility] Comment on above: Performed By: #### U AMIC #### [facility] [address] [place], [facility]83 [employer] Installer: Ion Jasso MD Bilirubin, SemiQt,Ur Negative Normal NEG [facility] Comment on above: Performed By: #### U AMIC #### [facility] [address] [place], [place] [address] [employer] Installer: Ion Jasso MD Blood, Urine Negative Normal NEG [facility] Comment on above: Performed By: #### U AMIC #### [facility] [address] [place] [address] [place], [place] [phone] [employer] Installer: Ion Jasso MD Clarity (U) Clear Normal CLEAR [facility] Comment on above: Performed By: #### U AMIC #### [facility] [address] [place], [facility]83 [employer] Installer: Ion Jasso MD Color (U) Yellow Normal YEL [facility] Comment on above: Performed By: #### U AMIC #### [facility] [address] [place] [address] Dr[address] [place], [facility]83 [employer] Installer: Ion Jasso MD Epithelial cells LM Ql (Urine sed) 2 TO 5 Normal 0-25 [facility] Comment on above: Performed By: #### U AMIC #### [facility] [address] [place], [place] [address]83 [employer] Installer: Ion Jasso MD Glucose Ql (U) Negative Normal NEG [facility] Comment on above: Performed By: #### U AMIC #### [facility] [address] [place] [address] [place] [address] [employer] Installer: Ion Jasso MD Ketones Ql (U) Negative Normal NEG [facility] Comment on above: Performed By: #### U AMIC #### [facility] [address] [place], [place] [address]83 [employer] Installer: Ion Jasso MD Leukocyte esterase Test strip Ql (U) Negative Normal NEG [facility] Comment on above: Performed By: #### U AMIC #### [facility] [address] [place], [place] [address]783 [employer] Installer: Ion Jasso MD Nitrite,Ur Negative Normal NEG [facility] Comment on above: Performed By: #### U AMIC #### [facility] [address] [place], [place] [address]83 [employer] Installer: Ion Jasso MD PH,Ur 6.0 Normal 5.0-9.0 [facility] Comment on above: Performed By: #### U AMIC #### [address] [place], [place] [address]183 [employer]er: Ion Jasso MD Protein Ql (U) Negative Normal NEG [facility] Comment on above: Performed By: #### U AMIC #### [address] [place], [place] [address] [employer] Installer: Ion Jasso MD Spec. [place],Ur >1.030 High 1.010-1.02 0 [facility] Comment on above: Performed By: #### U AMIC #### [facility] [address] [place] [address] [place], [place] 360[address]83 [employer] Installer: Ion Jasso MD Urine RBC's None Normal 0-2 [facility] Comment on above: Performed By: #### U AMIC #### [facility] [address] [place] [address] [place], [place] [address]783 [employer] Installer: Ion Jasso MD Urine WBC's None Normal 0-5 [facility] Comment on above: Performed By: #### U AMIC #### [facility] [address] [place] [address] [employer] Installer: Ion Jasso MD Urobilinogen,Ur Normal Normal 0.0-1.0 [facility] Comment on above: Performed By: #### U [facility] #### [facility] [address] [place] [address] [employer] Installer: Ion Jasso MD Urinalysis with Microscopico n 09-20-2024 Bacteria LM Ql (Urine sed) 2+ Abnormal None [facility] Bilirubin Ql (U) Negative NEGATIVE [place] [facility] Clarity (U) Clear Clear [facility] Color (U) Yellow Yellow [facility] Epithelial cells LM.HPF (Urine sed) [#/Area] 2 TO 5 [facility] Glucose Test strip (U) [Mass/Vol] Negative NEGATIVE mg/dL [facility] Hemoglobin Auto test strip Ql (U) Negative NEGATIVE [facility] Interpretation and review of laboratory results Abnormal [facility] Ketones (U) [Mass/Vol] Negative NEGAT MATTHIAS mg/dL [facility] Leukocyte esterase Test strip Ql (U) Negative NEGATIVE [facility] Nitrite Ql (U) Negative NEGATIVE [place] [facility] pH (U) 6 [pH] 5.0 - 9.0 [facility] Protein (U) [Mass/Vol] Negative NEGAT MATTHIAS mg/dL [facility] RBC LM.HPF (Urine sed) [#/Area] None [facility] Specific gravity (U) [Rel density] High 1.010 - 1.020 [facility] Urobilinogen Qn (U) Normal 0.0 - 1. 0 EU/dL [facility] WBC LM.HPF (Urine sed) [#/Area] None [...] Dasilva MD on 09/19/2024 1:15 AM Normal [facility] POCT NURSING URINE MACROSCOP IC UAon 09-19-2024 BILIRUBIN JERE Negative Normal Negative [facility] Comment on above: Performed By: #### 8 9579-7, 19464-4, 5643-2, 31323-4, LIVR, 3040-3, CBCA, BMP #### [facility] ([id number]) [address] [place] [address] BLOOD/HGB JERE Negative Normal Negative [facility] Comment on above: Performed By: #### 8 9579-7, 39269-9, 5643-2, 71160-3, LIVR, 3040-3, CBCA, BMP #### [facility] ([id number]) [address] [place] [address] GLUCOSE JERE Negative Normal Negative [facility] Comment on above: Performed By: #### 8 9579-7, 76905-7, 5643-2, 20635-5, LIVR, 3040-3, CBCA, BMP #### [facility] ([id number]) [address] [place] [address] KETONES JERE Negative Normal Negative [facility] Comment on above: Performed By: #### 8 9579-7, 94260-1, 5643-2, 30336-6, LIVR, 3040-3, CBCA, BMP #### [facility] ([id number]) [address] [place] [address] LEUKOCYTE ESTERASE JERE Negative Normal Negative Pr [facility] Comment on above: Performed By: #### 8 9579-7, 60081-7, 5643-2, 43788-6, LIVR, 3040-3, CBCA, BMP #### [facility] ([id number]) [address] [place] [address] NITRITE JERE Negative Normal Negative [facility] Comment on above: Performed By: #### 8 9579-7, 33610-4, 5643-2, 46748-0, LIVR, 3040-3, CBCA, BMP #### [facility] ([id number]) [address] [place] [address] PH JERE 5.5 Normal 5.0, 6.0, 6.5, 7.0, 7.5, 8.0, 8.5, 5.5 [facility] Comment on above: Performed By: #### 8 9579-7, 87525-5, 5643-2, 85041-0, LIVR, 3040-3, CBCA, BMP #### [facility] ([id number]) [address] [place] [address] PROTEIN JERE Negative Normal Negative [facility] Comment on above: Performed By: #### 8 9579-7, 26254-6, 5643-2, 14184-7, LIVR, 3040-3, CBCA, BMP #### [facility] ([id number]) [address] [place] [address] SPECIFIC GRAVITY JERE 1.025 Normal 1.010, 1.015, 1.020, 1.025 [facility] Comment on above: Performed By: #### 8 9579-7, 64370-2, 5643-2, 83209-1, LIVR, 3040-3, CBCA, BMP #### [facility] ([id number]) [address] [place] [address]82 UROBILINOGEN JERE 0.2 E.U./dL Normal [facility] Comment on above: Performed By: #### 8 9579-7, 64760-5, 5643-2, 61478-3, LIVR, 3040-3, CBCA, BMP #### [facility] ([id number]) [address] [place] [address] 86016 APTTon 09-18-2024 aPTT Coag (Bld) [Time] 26 s Normal 26-37 [facility] Comment on above: Performed By: #### 8 9579-7, 37354-3, 5643-2, 95368-2, LIVR, 3040-3, CBCA, BMP #### [facility] ([id number]) [address] [place] [address] 88890 BASIC METABOLIC PANELon 09-06 Anion gap [Moles/Vol] 6 mmol/L Normal 5-15 [facility] Comment on above: Performed By: #### 8 9579-7, 92015-9, 5643-2, 98634-3, LIVR, 3040-3, CBCA, BMP #### [facility] ([id number]) [address] [place] [address] 34867 Calcium [Mass/Vol] 9.8 mg/dL Normal 8.5-10.5 [facility] Comment on above: Performed By: #### 8 9579-7, 84333-9, 5643-2, 76843-3, LIVR, 3040-3, CBCA, BMP #### [facility] ([id number]) [address] [place] [address] 38832 Chloride [Moles/Vol] 106 mmol/L Normal 98-109 [facility] Comment on above: Performed By: #### 8 9579-7, 49908-7, 5643-2, 63811-3, LIVR, 3040-3, CBCA, BMP #### [facility] ([id number]) [address] [place] [address] 31244 CO2 [Moles/Vol] 27 mmol/L Normal 22-32 [facility] Comment on above: Performed By: #### 8 9579-7, 81550-2, 5643-2, 99459-8, LIVR, 3040-3, CBCA, BMP #### [facility] ([id number]) [address] [place] [address] 65191 Creatinine [Mass/Vol] 0.91 mg/dL Normal 0.40-1.00 [facility] Comment on above: Result Comment: METH OD TRACEABLE TO IDMS STANDARD Performed By: #### 8 9579-7, 10699-8, 5643-2, 74052-7, LIVR, 3040-3, CBCA, BMP #### [facility] ([id number]) [address] [place] [address] 34484 GFR/1.73 sq M.predicted among non-blacks MDRD (S/P/Bld) [Vol rate/Area] 75 mL/min/{1.73_m2} Normal >=60 [facility] Comment on above: Result Comment: eGFR not reported due to non-numeric value for Creatinine. Reported eGFR is based on the CKD-EPI 2021 equation that does not use a race coefficient. Performed By: #### 8 9579-7, 90879-4, 5643-2, 54123-5, LIVR, 3040-3, CBCA, BMP #### [facility] ([id number]) [address] [place] [address] 77934 Glucose [Mass/Vol] 76 mg/dL Normal 65-99 [facility] Comment on above: Performed By: #### 8 9579-7, 04754-0, 5643-2, 21776-0, LIVR, 3040-3, CBCA, BMP #### [facility] ([id number]) [address] [place] [address] 64285 Potassium [Moles/Vol] 3.5 mmol/L Normal 3.5-5.0 [facility] Comment on above: Performed By: #### 8 9579-7, 44489-6, 5643-2, 31322-3, LIVR, 3040-3, CBCA, BMP #### [facility] ([id number]) [address] [place] [address] 22747 Sodium [Moles/Vol] 139 mmol/L Normal 134-146 [facility] Comment on above: Performed By: #### 8 9579-7, 89602-1, 5643-2, 57246-2, LIVR, 3040-3, CBCA, BMP #### [facility] ([id number]) [address] [place] [address] 51703 Urea nitrogen [Mass/Vol] 10 mg/dL Normal 5-23 [facility] Comment on above: Performed By: #### 8 9579-7, 58096-8, 5643-2, 47299-2, LIVR, 3040-3, CBCA, BMP #### [facility] ([id number]) [address] [place] [address] 52210 CBC WITH AUTO DIFFERENTIALon 09-18-2024 BASOPHILS ABSOLUTE COUNT (10*3/UL) BY AUTOMATED COUNT 0.1 10*3/uL Normal 0.0-0.2 [facility] Comment on above: Performed By: #### 8 9579-7, 39293-7, 5643-2, 85741-8, LIVR, 3040-3, CBCA, BMP #### [facility] ([id number]) [address] [place] [address] 15402 BASOPHILS RELATIVE PERCENT BY AUTOMATED COUNT 0.7 % Normal [facility] Comment on above: Performed By: #### 8 9579-7, 64391-9, 5643-2, 38656-6, LIVR, 3040-3, CBCA, BMP #### [facility] ([id number]) [address] [place] [address] 07266 CELLAVISION DIFFERENTIAL TYPE AUTOMATED DIFFERENTIAL Normal [facility] Comment on above: Performed By: #### 8 9579-7, 77059-5, 5643-2, 07203-5, LIVR, 3040-3, CBCA, BMP #### [facility] ([id number]) [address] [place] [address] 54430 Eosinophils (Bld) [#/Vol] 0.2 10*3/uL Normal 0.0-0.4 [facility] Comment on above: Performed By: #### 8 9579-7, 53254-6, 5643-2, 25439-0, LIVR, 3040-3, CBCA, BMP #### [facility] ([id number]) [address] [place] [address] 30512 EOSINOPHILS RELATIVE PERCENT BY AUTOMATED COUNT 1.5 % Normal [facility] Comment on above: Performed By: #### 8 9579-7, 13665-7, 5643-2, 47820-6, LIVR, 3040-3, CBCA, BMP #### [facility] ([id number]) [address] [place] [address] 44075 Erythrocyte distribution width (RBC) [Ratio] 13.7 % Normal 11.5-15 [facility] Comment on above: Performed By: #### 8 9579-7, 73112-6, 5643-2, 96728-4, LIVR, 3040-3, CBCA, BMP #### [facility] ([id number]) [address] [place] [address] 85418 Hematocrit (Bld) [Volume fraction] 42.3 % Normal 35-47 [facility] Comment on above: Performed By: #### 8 9579-7, 78989-8, 5643-2, 33995-7, LIVR, 3040-3, CBCA, BMP #### [facility] ([id number]) [address] [place] [address] 99769 Hemoglobin (Bld) [Mass/Vol] 14.8 g/dL Normal 11.7-15.5 [facility] Comment on above: Performed By: #### 8 9579-7, 08136-8, 5643-2, 75957-0, LIVR, 3040-3, CBCA, BMP #### [facility] ([id number]) [address] [place] [address] 98218 LYMPHOCYTES ABSOLUTE COUNT (10*3/UL) BY AUTOMATED COUNT 2.8 10*3/uL Normal 1.0-3.5 [facility] Comment on above: Performed By: #### 8 9579-7, 11211-6, 5643-2, 87148-3, LIVR, 3040-3, CBCA, BMP #### [facility] ([id number]) [address] [place] [address] 76114 LYMPHOCYTES RELATIVE PERCENT BY AUTOMATED COUNT 26.7 % Normal [facility] Comment on above: Performed By: #### 8 9579-7, 58628-5, 5643-2, 87513-0, LIVR, 3040-3, CBCA, BMP #### [facility] ([id number]) [address] [place] [address] 18642 MCH (RBC) [Entitic mass] 33.4 pg Normal 27-34 [facility] Comment on above: Performed By: #### 8 9579-7, 38543-7, 5643-2, 23533-3, LIVR, 3040-3, CBCA, BMP #### [facility] ([id number]) [address] [place] [address] 15994 MCHC (RBC) [Mass/Vol] 34.9 g/dL Normal 32-36 [facility] Comment on above: Performed By: #### 8 9579-7, 78342-5, 5643-2, 10751-0, LIVR, 3040-3, CBCA, BMP #### [facility] ([id number]) [address] [place] [address] 65610 MCV (RBC) [Entitic vol] 96 fL Normal 80-100 [facility] Comment on above: Performed By: #### 8 9579-7, 11113-0, 5643-2, 60408-6, LIVR, 3040-3, CBCA, BMP #### [facility] ([id number]) [address] [place] [address] 33599 MONOCYTES ABSOLUTE COUNT (10*3/UL) BY AUTOMATED COUNT 0.9 10*3/uL Normal 0.0-0.9 [facility] Comment on above: Performed By: #### 8 9579-7, 98705-3, 5643-2, 78135-1, LIVR, 3040-3, CBCA, BMP #### [facility] ([id number]) [address] [place] [address] 25455 MONOCYTES RELATIVE PERCENT BY AUTOMATED COUNT 8.8 % Normal [facility] Comment on above: Performed By: #### 8 9579-7, 14456-7, 5643-2, 07379-5, LIVR, 3040-3, CBCA, BMP #### [facility] ([id number]) [address] [place] [address] 79593 NEUTROPHILS ABSOLUTE COUNT BY AUTOMATED COUNT 6.6 10*3/uL Normal 1.5-6.6 [facility] Comment on above: Performed By: #### 8 9579-7, 52907-1, 5643-2, 73122-6, LIVR, 3040-3, CBCA, BMP #### [facility] ([id number]) [address] [place] [address] 19748 NEUTROPHILS RELATIVE PERCENT BY AUTOMATED COUNT 62.3 % Normal [facility] Comment on above: Performed By: #### 8 9579-7, 03376-4, 5643-2, 31755-1, LIVR, 3040-3, CBCA, BMP #### [facility] ([id number]) [address] [place] [address] 52255 Platelet mean volume (Bld) [Entitic vol] 8.3 fL Normal 7-12 [facility] Comment on above: Performed By: #### 8 9579-7, 43852-0, 5643-2, 44089-5, LIVR, 3040-3, CBCA, BMP #### [facility] ([id number]) [address] [place] [address] 77245 Platelets (Bld) [#/Vol] 283 10*3/uL Normal 150-450 [facility] Comment on above: Performed By: #### 8 9579-7, 76865-7, 5643-2, 00676-2, LIVR, 3040-3, CBCA, BMP #### [facility] ([id number]) [address] [place] [address] 48284 RBC COUNT 4.43 X10E12/L Normal 3.8-5.2 [facility] Comment on above: Performed By: #### 8 9579-7, 86856-6, 5643-2, 30614-9, LIVR, 3040-3, CBCA, BMP #### [facility] ([id number]) [address] [place] [address] 08335 WBC (Bld) [#/Vol] 10.5 10*3/uL Normal 4-11 [facility] Comment on above: Performed By: #### 8 9579-7, 19571-1, 5643-2, 69196-1, LIVR, 3040-3, CBCA, BMP #### [facility] ([id number]) [address] [place] [address] 49831 ETHANOLon 09-18-2024 Ethanol [Mass/Vol] mg/dL Normal <=0.080 [facility] Comment on above: Result Comment: This report is intended for use in clinical monitoring or management of patients. Performed By: #### 8 9579-7, 18076-8, 5643-2, 62777-5, LIVR, 3040-3, CBCA, BMP #### [facility] ([id number]) [address] [place] [address] 61380 LIPASEon 09-18-2024 Lipase [Catalytic activity/Vol] 187 U/L High 17-40 [facility] Comment on above: Performed By: #### 8 9579-7, 82166-0, 5643-2, 13333-5, LIVR, 3040-3, CBCA, BMP #### [facility] ([id number]) [address] [place] [address] 06010 LIVER PANELon 09-18-2024 Albumin [Mass/Vol] 4.3 g/dL Normal 3.2-5.3 [facility] Comment on above: Performed By: #### 8 9579-7, 82590-5, 5643-2, 95139-5, LIVR, 3040-3, CBCA, BMP #### [facility] ([id number]) [address] [place] [address] 40607 ALP [Catalytic activity/Vol] 127 U/L Normal 39-130 [facility] Comment on above: Performed By: #### 8 9579-7, 14846-8, 5643-2, 61352-4, LIVR, 3040-3, CBCA, BMP #### [facility] ([id number]) [address] [place] [address] 35567 ALT [Catalytic activity/Vol] 13 U/L Normal <=31 [facility] Comment on above: Performed By: #### 8 9579-7, 61991-6, 5643-2, 63027-0, LIVR, 3040-3, CBCA, BMP #### [facility] ([id number]) [address] [place] [address] 30655 AST [Catalytic activity/Vol] 20 U/L Normal <=41 [facility] Comment on above: Performed By: #### 8 9579-7, 42695-2, 5643-2, 97632-1, LIVR, 3040-3, CBCA, BMP #### [facility] ([id number]) [address] [place] [address] 16957 Bilirubin [Mass/Vol] 0.3 mg/dL Normal 0.3-1.2 [facility] Comment on above: Performed By: #### 8 9579-7, 64624-6, 5643-2, 28976-4, LIVR, 3040-3, CBCA, BMP #### [facility] ([id number]) [address] [place] [address] 23718 Bilirubin.indirect [Mass/Vol] mg/dL Normal <=0.4 [facility] Comment on above: Performed By: #### 8 9579-7, 64552-1, 5643-2, 35772-8, LIVR, 3040-3, CBCA, BMP #### [facility] ([id number]) [address] [place] [address] 03946 Protein [Mass/Vol] 7.4 g/dL Normal 6.0-8.0 [facility] Comment on above: Performed By: #### 8 9579-7, 76528-2, 5643-2, 92743-1, LIVR, 3040-3, CBCA, BMP #### [facility] ([id number]) [address] [place] [address] 76767 MAGNESIUMon 09-18-2024 Magnesium [Mass/Vol] 2.4 mg/dL Normal 1.8-2.6 [facility] Comment on above: Performed By: #### 8 9579-7, 94012-1, 5643-2, 91160-6, LIVR, 3040-3, CBCA, BMP #### [facility] ([id number]) [address] [place] [address] 89622 PROTIME AND INRon 09-18-2024 INR 1.0 Normal 0.9-1.2 [facility] Comment on above: Performed By: #### 8 9579-7, 31238-2, 5643-2, 42778-1, LIVR, 3040-3, CBCA, BMP #### [facility] ([id number]) [address] [place] [address] 82979 PT Coag (PPP) [Time] 10.9 s Normal 9.8-13.2 [facility] Comment on above: Performed By: #### 8 9579-7, 90313-7, 5643-2, 10581-3, LIVR, 3040-3, CBCA, BMP #### [facility] ([id number]) [address] [place] [address] 56988 TROP I, HIGH SENSITIVITY 1 H OURon 09-18-2024 TROPONIN I, HIGH SENSITIVITY 2 ng/L Normal <16 [facility] Comment on above: Performed By: #### 8 9579-7, 20503-0, 5643-2, 02317-6, LIVR, 3040-3, CBCA, BMP #### [facility] ([id number]) [address] [place] [address] 50140 TROPONIN I, HIGH SENSITIVITY 0 HOURon 09-18-2024 TROPONIN I, HIGH SENSITIVITY 3 ng/L Normal <16 [facility] Comment on above: Performed By: #### 8 9579-7, 79969-1, 5643-2, 85082-9, LIVR, 3040-3, CBCA, BMP #### [facility] ([id number]) [address] [place] [address] 58829 CBC WITH AUTO DIFFERENTIALon 09-05-2024 BASOPHILS ABSOLUTE COUNT (10*3/UL) BY AUTOMATED COUNT 0.1 10*3/uL Normal 0.0-0.2 [facility] Comment on above: Performed By: #### 8 9579-7, 81255-8, 5643-2, 66933-0, LIVR, 3040-3, CBCA, BMP #### [facility] ([id number]) [address] [place] [address] 45805 BASOPHILS RELATIVE PERCENT BY AUTOMATED COUNT 1.1 % Normal [facility] Comment on above: Performed By: #### 8 9579-7, 51442-4, 5643-2, 39975-4, LIVR, 3040-3, CBCA, BMP #### [facility] ([id number]) [address] [place] [address] 80985 CELLAVISION DIFFERENTIAL TYPE AUTOMATED DIFFERENTIAL Normal [facility] Comment on above: Performed By: #### 8 9579-7, 77564-8, 5643-2, 96962-5, LIVR, 3040-3, CBCA, BMP #### [facility] ([id number]) [address] [place] [address] 29109 Eosinophils (Bld) [#/Vol] 0.2 10*3/uL Normal 0.0-0.4 [facility] Comment on above: Performed By: #### 8 9579-7, 04088-2, 5643-2, 86545-8, LIVR, 3040-3, CBCA, BMP #### [facility] ([id number]) [address] [place] [address] 24672 EOSINOPHILS RELATIVE PERCENT BY AUTOMATED COUNT 2.1 % Normal [facility] Comment on above: Performed By: #### 8 9579-7, 52319-2, 5643-2, 03001-3, LIVR, 3040-3, CBCA, BMP #### [facility] ([id number]) [address] [place] [address] 05239 Erythrocyte distribution width (RBC) [Ratio] 13.2 % Normal 11.5-15 [facility] Comment on above: Performed By: #### 8 9579-7, 48318-9, 5643-2, 22111-0, LIVR, 3040-3, CBCA, BMP #### [facility] ([id number]) [address] [place] [address] 82909 Hematocrit (Bld) [Volume fraction] 43.1 % Normal 35-47 [facility] Comment on above: Performed By: #### 8 9579-7, 73736-1, 5643-2, 85277-8, LIVR, 3040-3, CBCA, BMP #### [facility] ([id number]) [address] [place] [address] 32898 Hemoglobin (Bld) [Mass/Vol] 15.0 g/dL Normal 11.7-15.5 [facility] Comment on above: Performed By: #### 8 9579-7, 73760-0, 5643-2, 19604-7, LIVR, 3040-3, CBCA, BMP #### [facility] ([id number]) [address] [place] [address] 80343 LYMPHOCYTES ABSOLUTE COUNT (10*3/UL) BY AUTOMATED COUNT 3.4 10*3/uL Normal 1.0-3.5 [facility] Comment on above: Performed By: #### 8 9579-7, 67349-4, 5643-2, 05531-4, LIVR, 3040-3, CBCA, BMP #### [facility] ([id number]) [address] [place] [address] 02578 LYMPHOCYTES RELATIVE PERCENT BY AUTOMATED COUNT 35.0 % Normal [facility] Comment on above: Performed By: #### 8 9579-7, 80907-6, 5643-2, 97822-3, LIVR, 3040-3, CBCA, BMP #### [facility] ([id number]) [address] [place] [address] 98077 MCH (RBC) [Entitic mass] 33.8 pg Normal 27-34 [facility] Comment on above: Performed By: #### 8 9579-7, 39810-3, 5643-2, 52451-7, LIVR, 3040-3, CBCA, BMP #### [facility] ([id number]) [address] [place] [address] 24051 MCHC (RBC) [Mass/Vol] 34.8 g/dL Normal 32-36 [facility] Comment on above: Performed By: #### 8 9579-7, 98537-7, 5643-2, 05922-4, LIVR, 3040-3, CBCA, BMP #### [facility] ([id number]) [address] [place] [address] 25235 MCV (RBC) [Entitic vol] 97 fL Normal 80-100 [facility] Comment on above: Performed By: #### 8 9579-7, 57042-3, 5643-2, 61358-5, LIVR, 3040-3, CBCA, BMP #### [facility] ([id number]) [address] [place] [address] 73697 MONOCYTES ABSOLUTE COUNT (10*3/UL) BY AUTOMATED COUNT 0.8 10*3/uL Normal 0.0-0.9 [facility] Comment on above: Performed By: #### 8 9579-7, 82449-7, 5643-2, 30895-0, LIVR, 3040-3, CBCA, BMP #### [facility] ([id number]) [address] [place] [address] 17011 MONOCYTES RELATIVE PERCENT BY AUTOMATED COUNT 8.5 % Normal [facility] Comment on above: Performed By: #### 8 9579-7, 21438-7, 5643-2, 83438-1, LIVR, 3040-3, CBCA, BMP #### [facility] ([id number]) [address] [place] [address] 96982 NEUTROPHILS ABSOLUTE COUNT BY AUTOMATED COUNT 5.2 10*3/uL Normal 1.5-6.6 [facility] Comment on above: Performed By: #### 8 9579-7, 06523-4, 5643-2, 14477-9, LIVR, 3040-3, CBCA, BMP #### [facility] ([id number]) [address] [place] [address] 86920 NEUTROPHILS RELATIVE PERCENT BY AUTOMATED COUNT 53.3 % Normal [facility] Comment on above: Performed By: #### 8 9579-7, 45191-8, 5643-2, 98689-8, LIVR, 3040-3, CBCA, BMP #### [facility] ([id number]) [address] [place] [address] 52665 Platelet mean volume (Bld) [Entitic vol] 8.0 fL Normal 7-12 [facility] Comment on above: Performed By: #### 8 9579-7, 94990-7, 5643-2, 27861-5, LIVR, 3040-3, CBCA, BMP #### [facility] ([id number]) [address] [place] [address] 13600 Platelets (Bld) [#/Vol] 275 10*3/uL Normal 150-450 [facility] Comment on above: Performed By: #### 8 9579-7, 87769-7, 5643-2, 59372-0, LIVR, 3040-3, CBCA, BMP #### [facility] ([id number]) [address] [place] [address] 71790 RBC COUNT 4.44 X10E12/L Normal 3.8-5.2 [facility] Comment on above: Performed By: #### 8 9579-7, 82173-2, 5643-2, 79883-7, LIVR, 3040-3, CBCA, BMP #### [facility] ([id number]) [address] [place] [address] 70703 WBC (Bld) [#/Vol] 9.7 10*3/uL Normal 4-11 [facility] Comment on above: Performed By: #### 8 9579-7, 24725-9, 5643-2, 27157-6, LIVR, 3040-3, CBCA, BMP #### [facility] ([id number]) [address] [place] [address] 58503 COMPREHENSIVE METABOLIC PANE Nimesh 09-05-2024 Albumin [Mass/Vol] 4.2 g/dL Normal 3.2-5.3 [facility] Comment on above: Performed By: #### 8 9579-7, 61012-8, 5643-2, 11603-0, LIVR, 3040-3, CBCA, BMP #### [facility] ([id number]) [address] [place] [address] 19518 ALP [Catalytic activity/Vol] 129 U/L Normal 39-130 [facility] Comment on above: Performed By: #### 8 9579-7, 41141-6, 5643-2, 29327-6, LIVR, 3040-3, CBCA, BMP #### [facility] ([id number]) [address] [place] [address] 34827 ALT [Catalytic activity/Vol] 13 U/L Normal <=31 [facility] Comment on above: Performed By: #### 8 9579-7, 96015-5, 5643-2, 88263-2, LIVR, 3040-3, CBCA, BMP #### [facility] ([id number]) [address] [place] [address] 19270 Anion gap [Moles/Vol] 7 mmol/L Normal 5-15 [facility] Comment on above: Performed By: #### 8 9579-7, 77158-2, 5643-2, 27349-7, LIVR, 3040-3, CBCA, BMP #### [facility] ([id number]) [address] [place] [address] 35141 AST [Catalytic activity/Vol] 22 U/L Normal <=41 [facility] Comment on above: Performed By: #### 8 9579-7, 45589-2, 5643-2, 04876-8, LIVR, 3040-3, CBCA, BMP #### [facility] ([id number]) [address] [place] [address] 54215 Bilirubin [Mass/Vol] 0.3 mg/dL Normal 0.3-1.2 [facility] Comment on above: Performed By: #### 8 9579-7, 11431-6, 5643-2, 52088-4, LIVR, 3040-3, CBCA, BMP #### [facility] ([id number]) [address] [place] [address] 54522 Calcium [Mass/Vol] 10.2 mg/dL Normal 8.5-10.5 [facility] Comment on above: Performed By: #### 8 9579-7, 85205-7, 5643-2, 20815-5, LIVR, 3040-3, CBCA, BMP #### [facility] ([id number]) [address] [place] [address] 73545 Chloride [Moles/Vol] 106 mmol/L Normal 98-109 [facility] Comment on above: Performed By: #### 8 9579-7, 86447-9, 5643-2, 15840-6, LIVR, 3040-3, CBCA, BMP #### [facility] ([id number]) [address] [place] [address] 86587 CO2 [Moles/Vol] 26 mmol/L Normal 22-32 [facility] Comment on above: Performed By: #### 8 9579-7, 09133-9, 5643-2, 02813-1, LIVR, 3040-3, CBCA, BMP #### [facility] ([id number]) [address] [place] [address] 97084 Creatinine [Mass/Vol] 0.74 mg/dL Normal 0.40-1.00 [facility] Comment on above: Result Comment: METH OD TRACEABLE TO IDMS STANDARD Performed By: #### 8 9579-7, 69746-8, 5643-2, 86004-9, LIVR, 3040-3, CBCA, BMP #### [facility] ([id number]) [address] [place] [address] 15893 EGFR (CKD-EPI) NON-RACE DEPENDENT >^90 Normal >=60 [facility] Comment on above: Result Comment: eGFR not reported due to non-numeric value for Creatinine. Reported eGFR is based on the CKD-EPI 2020 equation that does not use a race coefficient. Performed By: #### 8 9579-7, 81384-3, 5643-2, 62117-3, LIVR, 3040-3, CBCA, BMP #### [facility] ([id number]) [address] [place] [address] 14747 Glucose [Mass/Vol] 120 mg/dL High 65-99 [facility] Comment on above: Performed By: #### 8 9579-7, 74467-3, 5643-2, 93934-3, LIVR, 3040-3, CBCA, BMP #### [facility] ([id number]) [address] [place] [address] 33000 Potassium [Moles/Vol] 3.6 mmol/L Normal 3.5-5.0 [facility] Comment on above: Performed By: #### 8 9579-7, 21943-8, 5643-2, 40367-1, LIVR, 3040-3, CBCA, BMP #### [facility] ([id number]) [address] [place] [address] 86819 Protein [Mass/Vol] 7.5 g/dL Normal 6.0-8.0 [facility] Comment on above: Performed By: #### 8 9579-7, 75160-0, 5643-2, 80539-1, LIVR, 3040-3, CBCA, BMP #### [facility] ([id number]) [address] [place] [address] 30143 Sodium [Moles/Vol] 139 mmol/L Normal 134-146 [facility] Comment on above: Performed By: #### 8 9579-7, 21931-4, 5643-2, 03069-1, LIVR, 3040-3, CBCA, BMP #### [facility] ([id number]) [address] [place] [address] 62135 Urea nitrogen [Mass/Vol] 11 mg/dL Normal 5-23 [facility] Comment on above: Performed By: #### 8 9579-7, 45768-4, 5643-2, 03196-7, LIVR, 3040-3, CBCA, BMP #### [facility] ([id number]) [address] [place] [address] 35579 LIPASEon 09-05-2024 Lipase [Catalytic activity/Vol] 44 U/L High 17-40 [facility] Comment on above: Performed By: #### 8 9579-7, 01934-0, 5643-2, 25174-6, LIVR, 3040-3, CBCA, BMP #### [facility] ([id number]) [address] [place] [address] 64913 CBC WITH AUTO DIFFERENTIALon 08-10-2024 BASOPHILS ABSOLUTE COUNT (10*3/UL) BY AUTOMATED COUNT 0.2 10*3/uL Normal 0.0-0.2 [facility] Comment on above: Performed By: #### 8 9579-7, 20686-7, 5643-2, 81195-1, LIVR, 3040-3, CBCA, BMP #### [facility] ([id number]) [address] [place] [address] 82801 BASOPHILS RELATIVE PERCENT BY AUTOMATED COUNT 2.0 % Normal [facility] Comment on above: Performed By: #### 8 9579-7, 27409-0, 5643-2, 66791-2, LIVR, 3040-3, CBCA, BMP #### [facility] ([id number]) [address] [place] [address] 86559 CELLAVISION DIFFERENTIAL TYPE AUTOMATED DIFFERENTIAL Normal [facility] Comment on above: Performed By: #### 8 9579-7, 95464-0, 5643-2, 67857-2, LIVR, 3040-3, CBCA, BMP #### [facility] ([id number]) [address] [place] [address] 02671 Eosinophils (Bld) [#/Vol] 0.1 10*3/uL Normal 0.0-0.4 [facility] Comment on above: Performed By: #### 8 9579-7, 33025-9, 5643-2, 60976-1, LIVR, 3040-3, CBCA, BMP #### [facility] ([id number]) [address] [place] [address] 48551 EOSINOPHILS RELATIVE PERCENT BY AUTOMATED COUNT 0.8 % Normal [facility] Comment on above: Performed By: #### 8 9579-7, 39491-0, 5643-2, 64518-3, LIVR, 3040-3, CBCA, BMP #### [facility] ([id number]) [address] [place] [address] 52018 Erythrocyte distribution width (RBC) [Ratio] 13.0 % Normal 11.5-15 [facility] Comment on above: Performed By: #### 8 9579-7, 89621-8, 5643-2, 32568-6, LIVR, 3040-3, CBCA, BMP #### [facility] ([id number]) [address] [place] [address] 92843 Hematocrit (Bld) [Volume fraction] 41.7 % Normal 35-47 [facility] Comment on above: Performed By: #### 8 9579-7, 90188-9, 5643-2, 29333-3, LIVR, 3040-3, CBCA, BMP #### [facility] ([id number]) [address] [place] [address] 76104 Hemoglobin (Bld) [Mass/Vol] 14.2 g/dL Normal 11.7-15.5 [facility] Comment on above: Performed By: #### 8 9579-7, 12227-9, 5643-2, 78260-9, LIVR, 3040-3, CBCA, BMP #### [facility] ([id number]) [address] [place] [address] 57065 LYMPHOCYTES ABSOLUTE COUNT (10*3/UL) BY AUTOMATED COUNT 2.1 10*3/uL Normal 1.0-3.5 [facility] Comment on above: Performed By: #### 8 9579-7, 58106-9, 5643-2, 81020-4, LIVR, 3040-3, CBCA, BMP #### [facility] ([id number]) [address] [place] [address] 86905 LYMPHOCYTES RELATIVE PERCENT BY AUTOMATED COUNT 18.1 % Normal [facility] Comment on above: Performed By: #### 8 9579-7, 45936-1, 5643-2, 19044-9, LIVR, 3040-3, CBCA, BMP #### [facility] ([id number]) [address] [place] [address] 29389 MCH (RBC) [Entitic mass] 33.1 pg Normal 27-34 [facility] Comment on above: Performed By: #### 8 9579-7, 24486-7, 5643-2, 47164-7, LIVR, 3040-3, CBCA, BMP #### [facility] ([id number]) [address] [place] [address] 07135 MCHC (RBC) [Mass/Vol] 34.0 g/dL Normal 32-36 [facility] Comment on above: Performed By: #### 8 9579-7, 00125-0, 5643-2, 78776-0, LIVR, 3040-3, CBCA, BMP #### [facility] ([id number]) [address] [place] [address] 89859 MCV (RBC) [Entitic vol] 97 fL Normal 80-100 [facility] Comment on above: Performed By: #### 8 9579-7, 95581-0, 5643-2, 86646-2, LIVR, 3040-3, CBCA, BMP #### [facility] ([id number]) [address] [place] [address] 79422 MONOCYTES ABSOLUTE COUNT (10*3/UL) BY AUTOMATED COUNT 0.9 10*3/uL Normal 0.0-0.9 [facility] Comment on above: Performed By: #### 8 9579-7, 87523-5, 5643-2, 07758-0, LIVR, 3040-3, CBCA, BMP #### [facility] ([id number]) [address] [place] [address] 81628 MONOCYTES RELATIVE PERCENT BY AUTOMATED COUNT 7.9 % Normal [facility] Comment on above: Performed By: #### 8 9579-7, 99473-4, 5643-2, 30005-4, LIVR, 3040-3, CBCA, BMP #### [facility] ([id number]) [address] [place] [address] 64830 NEUTROPHILS ABSOLUTE COUNT BY AUTOMATED COUNT 8.4 10*3/uL High 1.5-6.6 [facility] Comment on above: Performed By: #### 8 9579-7, 64304-8, 5643-2, 85940-6, LIVR, 3040-3, CBCA, BMP #### [facility] ([id number]) [address] [place] [address] 05797 NEUTROPHILS RELATIVE PERCENT BY AUTOMATED COUNT 71.2 % Normal [facility] Comment on above: Performed By: #### 8 9579-7, 09945-7, 5643-2, 52446-2, LIVR, 3040-3, CBCA, BMP #### [facility] ([id number]) [address] [place] [address] 95291 Platelet mean volume (Bld) [Entitic vol] 8.1 fL Normal 7-12 [facility] Comment on above: Performed By: #### 8 9579-7, 93945-9, 5643-2, 78127-2, LIVR, 3040-3, CBCA, BMP #### [facility] ([id number]) [address] [place] [address] 96286 Platelets (Bld) [#/Vol] 272 10*3/uL Normal 150-450 [facility] Comment on above: Performed By: #### 8 9579-7, 10863-0, 5643-2, 16937-2, LIVR, 3040-3, CBCA, BMP #### [facility] ([id number]) [address] [place] [address] 15366 RBC COUNT 4.28 X10E12/L Normal 3.8-5.2 [facility] Comment on above: Performed By: #### 8 9579-7, 37691-5, 5643-2, 01386-6, LIVR, 3040-3, CBCA, BMP #### [facility] ([id number]) [address] [place] [address] 03744 WBC (Bld) [#/Vol] 11.8 10*3/uL High 4-11 [facility] Comment on above: Performed By: #### 8 9579-7, 73776-3, 5643-2, 52367-4, LIVR, 3040-3, CBCA, BMP #### [facility] ([id number]) [address] [place] [address] 60853 COMPREHENSIVE METABOLIC PANE Nimesh 08-10-2024 Albumin [Mass/Vol] 4.2 g/dL Normal 3.2-5.3 [facility] Comment on above: Performed By: #### 8 9579-7, 57685-4, 5643-2, 37142-1, LIVR, 3040-3, CBCA, BMP #### [facility] ([id number]) [address] [place] [address] 24806 ALP [Catalytic activity/Vol] 128 U/L Normal 39-130 [facility] Comment on above: Performed By: #### 8 9579-7, 83259-2, 5643-2, 42732-7, LIVR, 3040-3, CBCA, BMP #### [facility] ([id number]) [address] [place] [address] 73920 ALT [Catalytic activity/Vol] 16 U/L Normal <=31 [facility] Comment on above: Performed By: #### 8 9579-7, 71724-0, 5643-2, 80241-6, LIVR, 3040-3, CBCA, BMP #### [facility] ([id number]) [address] [place] [address] 77521 Anion gap [Moles/Vol] 4 mmol/L Low 5-15 [facility] Comment on above: Performed By: #### 8 9579-7, 04514-7, 5643-2, 50428-5, LIVR, 3040-3, CBCA, BMP #### [facility] ([id number]) [address] [place] [address] 17268 AST [Catalytic activity/Vol] 23 U/L Normal <=41 [facility] Comment on above: Performed By: #### 8 9579-7, 10096-3, 5643-2, 77340-9, LIVR, 3040-3, CBCA, BMP #### [facility] ([id number]) [address] [place] [address] 03340 Bilirubin [Mass/Vol] 0.3 mg/dL Normal 0.3-1.2 [facility] Comment on above: Performed By: #### 8 9579-7, 67586-7, 5643-2, 76992-6, LIVR, 3040-3, CBCA, BMP #### [facility] ([id number]) [address] [place] [address] 83277 Calcium [Mass/Vol] 9.8 mg/dL Normal 8.5-10.5 [facility] Comment on above: Performed By: #### 8 9579-7, 25431-2, 5643-2, 63509-4, LIVR, 3040-3, CBCA, BMP #### [facility] ([id number]) [address] [place] [address] 91031 Chloride [Moles/Vol] 106 mmol/L Normal 98-109 [facility] Comment on above: Performed By: #### 8 9579-7, 80657-1, 5643-2, 75939-2, LIVR, 3040-3, CBCA, BMP #### [facility] ([id number]) [address] [place] [address] 10723 CO2 [Moles/Vol] 27 mmol/L Normal 22-32 [facility] Comment on above: Performed By: #### 8 9579-7, 67147-8, 5643-2, 21869-0, LIVR, 3040-3, CBCA, BMP #### [facility] ([id number]) [address] [place] [address] 17753 Creatinine [Mass/Vol] 0.72 mg/dL Normal 0.40-1.00 [facility] Comment on above: Result Comment: METH OD TRACEABLE TO IDMS STANDARD Performed By: #### 8 9579-7, 04824-1, 5643-2, 78666-0, LIVR, 3040-3, CBCA, BMP #### [facility] ([id number]) [address] [place] [address] 54730 EGFR (CKD-EPI) NON-RACE DEPENDENT >^90 Normal >=60 [facility] Comment on above: Result Comment: eGFR not reported due to non-numeric value for Creatinine. Reported eGFR is based on the CKD-EPI 2020 equation that does not use a race coefficient. Performed By: #### 8 9579-7, 67421-5, 5643-2, 57467-6, LIVR, 3040-3, CBCA, BMP #### [facility] ([id number]) [address] [place] [address] 29975 Glucose [Mass/Vol] 115 mg/dL High 65-99 [facility] Comment on above: Performed By: #### 8 9579-7, 94710-6, 5643-2, 01711-7, LIVR, 3040-3, CBCA, BMP #### [facility] ([id number]) [address] [place] [address] 12295 Potassium [Moles/Vol] 4.3 mmol/L Normal 3.5-5.0 [facility] Comment on above: Performed By: #### 8 9579-7, 61399-5, 5643-2, 12848-3, LIVR, 3040-3, CBCA, BMP #### [facility] ([id number]) [address] [place] [address] 42072 Protein [Mass/Vol] 7.5 g/dL Normal 6.0-8.0 [facility] Comment on above: Performed By: #### 8 9579-7, 14071-0, 5643-2, 13728-1, LIVR, 3040-3, CBCA, BMP #### [facility] ([id number]) [address] [place] [address] 23878 Sodium [Moles/Vol] 137 mmol/L Normal 134-146 [facility] Comment on above: Performed By: #### 8 9579-7, 56962-8, 5643-2, 57614-6, LIVR, 3040-3, CBCA, BMP #### [facility] ([id number]) [address] [place] [address] 69090 Urea nitrogen [Mass/Vol] 10 mg/dL Normal 5-23 [facility] Comment on above: Performed By: #### 8 9579-7, 92956-5, 5643-2, 30134-4, LIVR, 3040-3, CBCA, BMP #### [facility] ([id number]) [address] [place] [address] 48976 LIPASEon 08-10-2024 Lipase [Catalytic activity/Vol] 138 U/L High 17-40 [facility] Comment on above: Performed By: #### 8 9579-7, 12927-5, 5643-2, 58237-9, LIVR, 3040-3, CBCA, BMP #### [facility] ([id number]) [address] [place] [address] 82082 CBC with Auto Differentialon 08-08-2024 Basophils (Bld) [#/Vol] 0.11 10*3/uL [facility] Basophils/100 WBC (Bld) 1 % 0 - 2 % [facility] Eosinophils (Bld) [#/Vol] 0.17 10*3/uL [facility] Eosinophils/100 WBC (Bld) 2 % 1 - 4 % [facility] Erythrocyte distribution width (RBC) [Ratio] 12.5 % 11.8 - 14.4 % [facility] Hematocrit (Bld) [Volume fraction] 44.1 % 36.3 - 47.1 % [facility] Hemoglobin (Bld) [Mass/Vol] 14.9 g/dL 11.9 - 15.1 g/dL [facility] Immature granulocytes (Bld) [#/Vol] 0.04 10*3/uL [facility] Immature granulocytes/100 WBC (Bld) 0 % 0 [facility] Lymphocytes/100 WBC (Bld) 30 % 24 - 43 % [facility] Lymphocytes/100 WBC (Bld) 3.09 % [facility] MCH (RBC) [Entitic mass] 33.4 pg 25.2 - 33.5 pg [facility] MCHC (RBC) [Mass/Vol] 33.8 g/dL 28.4 - 34.8 g/dL [facility] MCV (RBC) [Entitic vol] 98.9 fL 82.6 - 102.9 fL [facility] Monocytes/100 WBC (Bld) 9 % 3 - 12 % [facility] Monocytes/100 WBC (Bld) 0.88 % [facility] Neutrophils/100 WBC (Bld) 58 % 36 - 65 % [facility] Nucleated RBC/100 WBC (Bld) [Ratio] 0 % 0.0 per 100 WBC [facility] Platelet mean volume (Bld) [Entitic vol] 9.5 fL 8.1 - 13.5 fL [facility] Platelets (Bld) [#/Vol] 265 10*3/uL [facility] RBC (Bld) [#/Vol] 4.46 10*6/uL 3.95 - 5.11 m/uL [facility] Segmented neutrophils/100 WBC (Bld) 5.99 % [facility] WBC other (Bld) [#/Vol] 10.3 [facility] CBC with Diffon 08-08-2024 Abs. Basophil 0.11 k/uL Normal 0.00-0.20 [facility] Comment on above: Performed By: #### B MP, LIVP, LIP #### [address] [place], [place] [address]33683 [employer]er: Ion Jasso MD Abs.Imm.Granulocyte 0.04 k/uL Normal 0.00-0.30 [facility] Comment on above: Performed By: #### B MP, LIVP, LIP #### [address] [place], [place] [address] [employer]er: Ion Jasso MD Abs.Neutrophil (Seg) 5.99 k/uL Normal 1.50-8.10 [facility] Comment on above: Performed By: #### B MP, LIVP, LIP #### [address] [place] [id number] [employer]er: Ion Jasso MD Basophils/100 WBC (Bld) 1 % Normal 0-2 [facility] Comment on above: Performed By: #### B MP, LIVP, LIP #### [address] [place], [facility]83 [employer]er: Ion Jasso MD Eosinophils (Bld) [#/Vol] 0.17 10*3/uL Normal 0.00-0.44 [facility] Comment on above: Performed By: #### B MP, LIVP, LIP #### [address] [place], [place] [address] [employer]er: Ion Jasso MD Eosinophils/100 WBC (Bld) 2 % Normal 1-4 [facility] Comment on above: Performed By: #### B MP, LIVP, LIP #### [address] [place], [place] [address] [employer]er: Ion Jasso MD Erythrocyte distribution width (RBC) [Ratio] 12.5 % Normal 11.8-14.4 [facility] Comment on above: Performed By: #### B MP, LIVP, LIP #### [facility] [address] [place], [place] [address]483 [employer]er: Ion Jasso MD Hematocrit (Bld) [Volume fraction] 44.1 % Normal 36.3-47.1 [facility] Comment on above: Performed By: #### B MP, LIVP, LIP #### [facility] [address] [place], [facility]83 [employer]er: Ion Jasso MD Hemoglobin (Bld) [Mass/Vol] 14.9 g/dL Normal 11.9-15.1 [facility] Comment on above: Performed By: #### B MP, LIVP, LIP #### [facility] [address] [place], [facility]83 [employer]er: Ion Jasso MD Immature granulocytes/100 WBC (Bld) 0 % Normal 0 [facility] Comment on above: Performed By: #### B MP, LIVP, LIP #### [address] [place], [facility]83 [employer]er: Ion Jasso MD Lymphocytes (Bld) [#/Vol] 3.09 10*3/uL Normal 1.10-3.70 [facility] Comment on above: Performed By: #### B MP, LIVP, LIP #### [address] [place], [facility]83 [employer]er: Ion Jasso MD Lymphocytes/100 WBC (Bld) 30 % Normal 24-43 [facility] Comment on above: Performed By: #### B MP, LIVP, LIP #### [facility] [address] [place], [facility]83 [employer]er: Ion Jasso MD MCH (RBC) [Entitic mass] 33.4 pg Normal 25.2-33.5 [facility] Comment on above: Performed By: #### B MP, LIVP, LIP #### [facility] [address] [place], [place] [address]498[address] [employer]er: Ion Jasso MD MCHC (RBC) [Mass/Vol] 33.8 g/dL Normal 28.4-34.8 [facility] Comment on above: Performed By: #### B MP, LIVP, LIP #### [facility] [address] [place], [place] [address]83 [employer]er: Ion Jasso MD MCV (RBC) [Entitic vol] 98.9 fL Normal 82.6-102.9 [facility] Comment on above: Performed By: #### B MP, LIVP, LIP #### [address] [place], [place] [address]83 [employer]er: Ion Jasso MD Monocytes (Bld) [#/Vol] 0.88 10*3/uL Normal 0.10-1.20 [facility] Comment on above: Performed By: #### B MP, LIVP, LIP #### [address] [place], [facility]83 [employer]er: Ion Jasso MD Monocytes/100 WBC (Bld) 9 % Normal 3-12 [facility] Comment on above: Performed By: #### B MP, LIVP, LIP #### [address] [place], [place] 5555383 [employer]er: Ion Jasso MD Neutrophil (Seg) 58 % Normal 36-65 [facility] Comment on above: Performed By: #### B MP, LIVP, LIP #### [facility] [address] [place], [place] [address] [employer]er: Ion Jasso MD NRBC Automated 0.0 per 100 WBC Normal 0.0 [facility] Comment on above: Performed By: #### B MP, LIVP, LIP #### [facility] [address] [place], [place] [address] [employer]er: Ion Jasso MD Platelet mean volume (Bld) [Entitic vol] 9.5 fL Normal 8.1-13.5 [facility] Comment on above: Performed By: #### B MP LIVP, LIP #### [facility] [address] [place], [place] [address]83 [employer]er: Ion Jasso MD Platelets (Bld) [#/Vol] 265 10*3/uL Normal 138-453 [facility] Comment on above: Performed By: #### B MP LIVP, LIP #### [facility] [address] [place] [address] [employer]er: Ion Jasso MD RBC (Bld) [#/Vol] 4.46 10*6/uL Normal 3.95-5.11 [facility] Comment on above: Performed By: #### B MP LIVP, LIP #### [facility] [address] [place], [place] [address] [employer]er: Ion Jasso MD WBC (Bld) [#/Vol] 10.3 10*3/uL Normal 3.5-11.3 [facility] Comment on above: Performed By: #### B MP, LIVP, LIP #### [facility] [address] [place], [place] [address] [employer]er: Ion Jasso MD [facility] 08-08-2024 Albumin [Mass/Vol] 4.3 g/dL 3.5 - 5.2 g/dL [facility] Albumin/Globulin [Mass ratio] 1.5 {ratio} 1.0 - 2.5 [facility] ALP [Catalytic activity/Vol] 142 U/L High 35 - 104 U/L [facility] ALT [Catalytic activity/Vol] 9 U/L Low 10 - 35 U/L [facility] Anion gap [Moles/Vol] 12 mmol/L 9 - 16 mmol/L [facility] AST [Catalytic activity/Vol] 21 U/L 10 - 35 U/L [facility] Bilirubin [Mass/Vol] mg/dL 0.00 - 1.20 mg/dL [facility] Calcium [Mass/Vol] 10.2 mg/dL 8.6 - 10. 4 mg/dL [facility] Chloride [Moles/Vol] 103 mmol/L 98 - 10 7 mmol/L [facility] CO2 [Moles/Vol] 24 mmol/L 20 - 31 mmol/L [facility] Creatinine [Mass/Vol] 0.8 mg/dL 0.50 - 0.90 mg/dL [facility] Est, Glom Filt Rate 81 - PINF [facility] Comment on above: These [...] [Mass/Vol] 86 mg/dL 74 - 99 mg/dL [facility] Potassium [Moles/Vol] 4.5 mmol/L 3.7 - 5.3 mmol/L [facility] Protein [Mass/Vol] 7.3 g/dL 6.6 - 8.7 g/dL [facility] Sodium [Moles/Vol] 139 mmol/L 136 - 145 mmol/L [facility] Urea nitrogen [Mass/Vol] 16 mg/dL 6 - 20 mg/dL [facility] Urea nitrogen/Creatinine [Mass ratio] 20 mg/mg 9 - 20 [facility] Comp Metabolic Profon 2024 Albumin [Mass/Vol] 4.3 g/dL Normal 3.5-5.2 [facility] Comment on above: Performed By: #### B NANCY MEDEL LIP #### [facility] [address] [place] [address] [employer]er: Ion Jasso MD Albumin/Glob Ratio 1.5 Normal 1.0-2.5 [facility] Comment on above: Performed By: #### B MP, LIVP, LIP #### [facility] [address] [place], [place] [address] [employer]er: Ion Jasso MD Alkaline Phos 142 U/L High 35-104 [facility] Comment on above: Performed By: #### B MP, LIVP, LIP #### [facility] [address] [place], [place] [address] [employer]er: Ion Jasso MD ALT [Catalytic activity/Vol] 9 U/L Low 10-35 [facility] Comment on above: Performed By: #### B MP, LIVP, LIP #### [facility] [address] [place], [place] [address] [employer]er: Ion Jasso MD Anion gap [Moles/Vol] 12 mmol/L Normal 9-16 [facility] Comment on above: Performed By: #### B MP, LIVP, LIP #### [facility] [address] [place], [place] [address] [employer]er: Ion Jasso MD AST [Catalytic activity/Vol] 21 U/L Normal 10-35 [facility] Comment on above: Performed By: #### B MP, LIVP, LIP #### [facility] [address] [place], [place] [address] [employer] Installer: Ion Jasso MD Bilirubin [Mass/Vol] mg/dL Normal 0.00-1.20 [facility] Comment on above: Performed By: #### B MP, LIVP, LIP #### [facility] [address] [place], [place] [address]483 [employer]er: Ion Jasso MD BUN/CRE Ratio 20 Normal 9-20 [facility] Comment on above: Performed By: #### B MP, LIVP, LIP #### [facility] [address] [place], [place] [address]83 [employer]er: Ion Jasso MD Calcium [Mass/Vol] 10.2 mg/dL Normal 8.6-10.4 [facility] Comment on above: Performed By: #### B MP LIVP, LIP #### [facility] [address] [place], [place] [address] [employer]er: Ion Jasso MD Chloride [Moles/Vol] 103 mmol/L Normal 98-107 [facility] Comment on above: Performed By: #### B MP LIVP, LIP #### [facility] [address] [place], [place] [address]83 [employer]er: Ion Jasso MD CO2 [Moles/Vol] 24 mmol/L Normal 20-31 [facility] Comment on above: Performed By: #### B LIZY LIVP, LIP #### [facility] [address] [place], [place] [address] [employer]er: Ion Jasso MD Creatinine [Mass/Vol] 0.8 mg/dL Normal 0.50-0.90 [facility] Comment on above: Performed By: #### B LIZY LIVP, LIP #### [facility] [address] [place], [place] [address] [employer]er: Ion Jasso MD GFR/1.73 sq M.predicted among [...] By: #### B MP LIVP, LIP #### [facility] [address] [place], [place] [address]83 [employer]er: Ion Jasso MD Glucose [Mass/Vol] 86 mg/dL Normal 74-99 [facility] Comment on above: Performed By: #### B MP, LIVP, LIP #### [facility] [address] [place], [place] [address]78483 [employer]er: Ion Jasso MD Potassium [Moles/Vol] 4.5 mmol/L Normal 3.7-5.3 [facility] Comment on above: Performed By: #### B MP, LIVP, LIP #### [facility] [address] [place], [place] [address] [employer]er: Ion Jasso MD Protein [Mass/Vol] 7.3 g/dL Normal 6.6-8.7 [facility] Comment on above: Performed By: #### B MP, LIVP, LIP #### [facility] [address] [place], [place] [address] [employer]er: Ion Jasso MD Sodium [Moles/Vol] 139 mmol/L Normal 136-145 [facility] Comment on above: Performed By: #### B MP, LIVP, LIP #### [facility] [address] [place], [place] [address] [employer]er: Ion Jasso MD Urea nitrogen [Mass/Vol] 16 mg/dL Normal 6-20 [facility] Comment on above: Performed By: #### B MP, LIVP, LIP #### [facility] [address] [place], [place] [address] [employer]er: Ion Jasso MD Lactic Acidon 08-08-2024 Lactate (BldV) [Moles/Vol] 1.2 mmol/L 0.5 - 2.2 mmol/L [facility] Lactate [Moles/Vol] 1.2 mmol/L Normal 0.5-2.2 [facility] Comment on above: Performed By: #### B JOSE ANGEL MEDELP, LIP #### [facility] [address] [place] [address] [employer] Installer: Ion Jasso MD Lipaseon 08-08-2024 Lipase [Catalytic activity/Vol] 109 U/L High 13 - 60 U/L [facility] Lipase [Catalytic activity/Vol] 109 U/L High 13-60 [facility] Comment on above: Performed By: #### B NANCY MEDEL, LIP #### [facility] [address] [place] [address] [employer] Installer: Ion Jasso MD Magnesiumon 08-08-2024 Magnesium [Mass/Vol] 2.4 mg/dL 1.6 - 2 .6 mg/dL [facility] Magnesium [Mass/Vol] 2.4 mg/dL Normal 1.6-2.6 [facility] Comment on above: Performed By: #### B NANCY MEDEL, LIP #### [facility] [address] [place] [address] [employer] Installer: Ion Jasso MD Microscopic Urinalysison Bacteria LM Ql (Urine sed) 1+ Abnormal None [facility] Epithelial cells LM.HPF (Urine sed) [#/Area] 10 TO 20 [facility] Interpretation and review of laboratory results Abnormal [facility] Mucus Ql (Urine sed) TRACE Abnormal None [facility] RBC LM.HPF (Urine sed) [#/Area] 0 TO 2 [facility] WBC LM.HPF (Urine sed) [#/Area] 0 TO 2 [facility] No Panel Informationon 08-08 Interpretation and review of laboratory results Abnormal [facility] UA w/Reflex Cultureon 2024 Clarity (U) SLIGHTLY CLOUDY Abnormal CLEAR [facility] Comment on above: Performed By: #### L IP, CDP, CP #### [facility] [address] [place], [place] [id number] [employer] Installer: Ion Jasso MD Color (U) Yellow Normal YEL [facility] Comment on above: Performed By: #### L IP, CDP, CP #### [facility] [address] [place] [address] [place] [address] [employer] Installer: Ion Jasso MD Leukocyte esterase Test strip Ql (U) Negative Normal NEG [facility] Comment on above: Performed By: #### L IP, CDP, CP #### [facility] [address] [place] [address] [place] [address] [employer] Installer: Ion Jasso MD Bilirubin, SemiQt,Ur Negative Normal [facility] Comment on above: Performed By: #### L IP, CDP, CP #### [facility] [address] [place] [address] [place] [place], [place] [id number] [employer] Installer: Ion Jasso MD Blood, Urine Negative Normal [facility] Comment on above: Performed By: #### L IP, CDP, CP #### [facility] [address] [place] [address] [place], [place] 6096383 [employer] Installer: Ion Jasso MD Glucose Ql (U) Negative Normal NEG [facility] Comment on above: Performed By: #### L IP, CDP, CP #### [facility] [address] [place] [address] [place] [address] [employer] Installer: Ion Jasso MD Ketones Ql (U) Negative Normal NEG [facility] Comment on above: Performed By: #### L IP, CDP, CP #### [facility] [address] [place] [address] [place], [place] 6363583 [employer] Installer: Ion Jasso MD Nitrite,Ur Negative Normal [facility] Comment on above: Performed By: #### L IP, CDP, CP #### [facility] [address] [place] [address] [place], [place] 7196983 [employer] Installer: Ion Jasso MD PH,Ur 6.0 Normal 5.0-9.0 [facility] Comment on above: Performed By: #### L WALTER ROONEY, CP #### [facility] [address] [place] [address] [place] [address] [employer] Installer: Ion Jasso MD Protein Ql (U) Negative Normal NEG [facility] Comment on above: Performed By: #### L WALTER ROONEY, CP #### [facility] [address] [place] [address] [place] [address] [employer] Installer: Ion Jasso MD Spec. [place],Ur 1.020 Normal 1.010-1.02 0 [facility] Comment on above: Performed By: #### L WALTER ROONEY, CP #### [address] [place] [address] [employer] Installer: Ion Jasso MD Urobilinogen,Ur Normal Normal 0.0-1.0 [facility] Comment on above: Performed By: #### L WALTER ROONEY, CP #### [address] [place] [address] [employer] Installer: Ion Jasso MD Urinalysis with Reflex to Cu ltureon 08-08-2024 Bilirubin Ql (U) Negative NEGATIVE [facility] Glucose Test strip (U) [Mass/Vol] Negative NEGATIVE mg/dL [facility] Hemoglobin Auto test strip Ql (U) Negative NEGATIVE [facility] Interpretation and review of laboratory results Abnormal [facility] Ketones (U) [Mass/Vol] Negative NEGAT MATTHIAS mg/dL [facility] Nitrite Ql (U) Negative NEGATIVE [facility] pH (U) 6 [pH] 5.0 - 9.0 [facility] Protein (U) [Mass/Vol] Negative NEGAT MATTHIAS mg/dL [facility] Specific gravity (U) [Rel density] 1.02 1.010 - 1.020 [facility] Urobilinogen Qn (U) Normal 0.0 - 1. 0 EU/dL [facility] Urinalysis,Microon 5 Amorphous sediment LM Ql (Urine sed) TRACE Abnormal NONE [facility] Comment on above: Performed By: #### L IP, CDP, CP #### [facility] [address] [place] [address] [place], [place] 6755183 [employer] Installer: Ion Jasso MD Bacteria 1+ Abnormal [facility] Comment on above: Performed By: #### L IP, CDP, CP #### [facility] [address] [place], [place] [address]883 [employer] Installer: Ion Jasso MD Epithelial cells LM Ql (Urine sed) 10 TO 20 Normal 0-25 [facility] Comment on above: Performed By: #### L IP, CDP, CP #### [address] [place], [place] 560[address]83 [employer] Installer: Ion Jasso MD Mucus Strands TRACE Abnormal [facility] Comment on above: Performed By: #### L IP, CDP, CP #### [address] [place], [place] 6067483 [employer] Installer: Ion Jasso MD Urine RBC's 0 TO 2 Normal 0-2 [facility] Comment on above: Performed By: #### L IP, CDP, CP #### [facility] [address] [place], [place] [address]83 [employer] Installer: Ion Jasso MD Urine WBC's 0 TO 2 Normal 0-5 [facility] Comment on above: Performed By: #### L IP, CDP, CP #### [facility] [address] [place], [place] 3779483 [employer] Installer: Ion Jasso MD CBC AND AUTO DIFFon 06-28-19 25 ABSOLUTE BASOPHIL 0.1 X10E9/L Normal 0.0-0.2 [facility] Comment on above: Performed By: #### 8 9579-7, 29611-2, 5643-2, 08028-1, LIVR, 3040-3, CBCA, BMP #### [facility] ([id number]) [address] [place] [address] 25804 ABSOLUTE NEUTROPHIL 4.9 X10E9/L Normal 1.5-6.6 [facility] Comment on above: Performed By: #### 8 9579-7, 74972-1, 5643-2, 44785-3, LIVR, 3040-3, CBCA, BMP #### [facility] ([id number]) [address] [place] [address] 66564 Basophils/100 WBC (Bld) 1.2 % Normal [facility] Comment on above: Performed By: #### 8 9579-7, 66639-8, 5643-2, 14751-7, LIVR, 3040-3, CBCA, BMP #### [facility] ([id number]) [address] [place] [address] 10776 Eosinophils (Bld) [#/Vol] 0.1 10*3/uL Normal 0.0-0.4 [facility] Comment on above: Performed By: #### 8 9579-7, 59597-3, 5643-2, 71175-7, LIVR, 3040-3, CBCA, BMP #### [facility] ([id number]) [address] [place] [address] 70765 Eosinophils/100 WBC (Bld) 1.3 % Normal [facility] Comment on above: Performed By: #### 8 9579-7, 73477-7, 5643-2, 05309-8, LIVR, 3040-3, CBCA, BMP #### [facility] ([id number]) [address] [place] [address] 73628 Erythrocyte distribution width (RBC) [Ratio] 13.1 % Normal 11.5-15.0 [facility] Comment on above: Performed By: #### 8 9579-7, 75924-9, 5643-2, 75386-9, LIVR, 3040-3, CBCA, BMP #### [facility] ([id number]) [address] [place] [address] 64963 Hematocrit (Bld) [Volume fraction] 40.9 % Normal 35-47 [facility] Comment on above: Performed By: #### 8 9579-7, 17053-9, 5643-2, 58192-5, LIVR, 3040-3, CBCA, BMP #### [facility] ([id number]) [address] [place] [address] 57156 Hemoglobin (Bld) [Mass/Vol] 14.3 g/dL Normal 11.7-15.5 [facility] Comment on above: Performed By: #### 8 9579-7, 48371-3, 5643-2, 43996-4, LIVR, 3040-3, CBCA, BMP #### [facility] ([id number]) [address] [place] [address] 16690 Lymphocytes (Bld) [#/Vol] 2.3 10*3/uL Normal 1.0-3.5 [facility] Comment on above: Performed By: #### 8 9579-7, 47098-0, 5643-2, 17410-4, LIVR, 3040-3, CBCA, BMP #### [facility] ([id number]) [address] [place] [address] 28559 Lymphocytes/100 WBC (Bld) 27.6 % Normal [facility] Comment on above: Performed By: #### 8 9579-7, 39103-4, 5643-2, 58691-3, LIVR, 3040-3, CBCA, BMP #### [facility] ([id number]) [address] [place] [address] [place] [address] MCH (RBC) [Entitic mass] 34.2 pg High 27-34 [facility] Comment on above: Performed By: #### 8 9579-7, 95983-3, 5643-2, 99994-1, LIVR, 3040-3, CBCA, BMP #### [facility] ([id number]) [address] [place] [address] 49812 MCHC (RBC) [Mass/Vol] 35.0 g/dL Normal 32-36 [facility] Comment on above: Performed By: #### 8 9579-7, 90464-5, 5643-2, 85924-5, LIVR, 3040-3, CBCA, BMP #### [facility] ([id number]) [address] [place] [address] 09107 MCV (RBC) [Entitic vol] 98 fL Normal 80-100 [facility] Comment on above: Performed By: #### 8 9579-7, 30194-3, 5643-2, 38246-1, LIVR, 3040-3, CBCA, BMP #### [facility] ([id number]) [address] [place] [address] 76481 Monocytes (Bld) [#/Vol] 1.0 10*3/uL High 0-0.9 [facility] Comment on above: Performed By: #### 8 9579-7, 31293-3, 5643-2, 28224-1, LIVR, 3040-3, CBCA, BMP #### [facility] ([id number]) [address] [place] [address] 43975 Monocytes/100 WBC (Bld) 11.4 % Normal [facility] Comment on above: Performed By: #### 8 9579-7, 05032-7, 5643-2, 13917-7, LIVR, 3040-3, CBCA, BMP #### [facility] ([id number]) [address] [place] [address] 43895 Neutrophils/100 WBC (Bld) 58.5 % Normal [facility] Comment on above: Performed By: #### 8 9579-7, 03796-5, 5643-2, 85787-3, LIVR, 3040-3, CBCA, BMP #### [facility] ([id number]) [address] [place] [address] 11682 Platelet mean volume (Bld) [Entitic vol] 7.9 fL Normal 7-12 [facility] Comment on above: Performed By: #### 8 9579-7, 03369-6, 5643-2, 75188-1, LIVR, 3040-3, CBCA, BMP #### [facility] ([id number]) [address] [place] [address] 74760 Platelets (Bld) [#/Vol] 267 10*3/uL Normal 150-450 [facility] Comment on above: Performed By: #### 8 9579-7, 63959-7, 5643-2, 47454-4, LIVR, 3040-3, CBCA, BMP #### [facility] ([id number]) [address] [place] [address] 51506 RBC COUNT 4.18 X10E12/L Normal 3.80-5.20 [facility] Comment on above: Performed By: #### 8 9579-7, 07522-5, 5643-2, 95060-0, LIVR, 3040-3, CBCA, BMP #### [facility] ([id number]) [address] [place] [address] 63464 WBC (Bld) [#/Vol] 8.4 10*3/uL Normal 4.0-11.0 [facility] Comment on above: Performed By: #### 8 9579-7, 20809-1, 5643-2, 49318-2, LIVR, 3040-3, CBCA, BMP #### [facility] ([id number]) [address] [place] [address] 11356 COMPREHENSIVE METABOLIC PANE Nimesh 06-27-2024 Albumin [Mass/Vol] 4.1 g/dL Normal 3.2-5.3 [facility] Comment on above: Performed By: #### 8 9579-7, 09898-7, 5643-2, 17307-1, LIVR, 3040-3, CBCA, BMP #### [facility] ([id number]) [address] [place] [address] 93303 ALP [Catalytic activity/Vol] 133 U/L High 39-130 [facility] Comment on above: Performed By: #### 8 9579-7, 05703-3, 5643-2, 20992-6, LIVR, 3040-3, CBCA, BMP #### [facility] ([id number]) [address] [place] [address] 95665 ALT [Catalytic activity/Vol] 14 U/L Normal 0-31 [facility] Comment on above: Performed By: #### 8 9579-7, 73077-8, 5643-2, 10915-5, LIVR, 3040-3, CBCA, BMP #### [facility] ([id number]) [address] [place] [address] 44553 Anion gap [Moles/Vol] 8 mmol/L Normal 5-15 [facility] Comment on above: Performed By: #### 8 9579-7, 83082-0, 5643-2, 56763-1, LIVR, 3040-3, CBCA, BMP #### [facility] ([id number]) [address] [place] [address] 40957 AST [Catalytic activity/Vol] 19 U/L Normal 0-41 [facility] Comment on above: Performed By: #### 8 9579-7, 79760-1, 5643-2, 03647-5, LIVR, 3040-3, CBCA, BMP #### [facility] ([id number]) [address] [place] [address] 38304 Bilirubin [Mass/Vol] 0.3 mg/dL Normal 0.3-1.2 [facility] Comment on above: Performed By: #### 8 9579-7, 15961-8, 5643-2, 00642-6, LIVR, 3040-3, CBCA, BMP #### [facility] ([id number]) [address] [place] [address] 36091 Calcium [Mass/Vol] 10.7 mg/dL High 8.5-10.5 [facility] Comment on above: Performed By: #### 8 9579-7, 65802-3, 5643-2, 06522-7, LIVR, 3040-3, CBCA, BMP #### [facility] ([id number]) [address] [place] [address] 90253 Chloride [Moles/Vol] 104 mmol/L Normal 98-109 [facility] Comment on above: Performed By: #### 8 9579-7, 23393-6, 5643-2, 20609-8, LIVR, 3040-3, CBCA, BMP #### [facility] ([id number]) [address] [place] [address] 11341 CO2 [Moles/Vol] 26 mmol/L Normal 22-32 [facility] Comment on above: Performed By: #### 8 9579-7, 05264-2, 5643-2, 82179-9, LIVR, 3040-3, CBCA, BMP #### [facility] ([id number]) [address] [place] [address] 79682 Creatinine [Mass/Vol] 0.76 mg/dL Normal 0.40-1.00 [facility] Comment on above: Result Comment: METH OD TRACEABLE TO IDMS STANDARD Performed By: #### 8 9579-7, 20682-6, 5643-2, 71811-9, LIVR, 3040-3, CBCA, BMP #### [facility] ([id number]) [address] [place] [address] 88808 eGFR (CKD-EPI) NON-RACE DEPENDENT >90 Normal >59 [facility] Comment on above: Result Comment: Reported eGFR is based on the CKD-EPI 2020 equation that does not use a race coefficient. Performed By: #### 8 9579-7, 19142-4, 5643-2, 54637-3, LIVR, 3040-3, CBCA, BMP #### [facility] ([id number]) [address] [place] [address] 80877 Glucose [Mass/Vol] 106 mg/dL High 65-99 [facility] Comment on above: Performed By: #### 8 9579-7, 58082-3, 5643-2, 86061-1, LIVR, 3040-3, CBCA, BMP #### [facility] ([id number]) [address] [place] [address] 18603 Potassium [Moles/Vol] 3.9 mmol/L Normal 3.5-5.0 [facility] Comment on above: Performed By: #### 8 9579-7, 01976-8, 5643-2, 67971-7, LIVR, 3040-3, CBCA, BMP #### [facility] ([id number]) [address] [place] [address] 89582 Protein [Mass/Vol] 7.0 g/dL Normal 6.0-8.0 [facility] Comment on above: Performed By: #### 8 9579-7, 15935-8, 5643-2, 20666-7, LIVR, 3040-3, CBCA, BMP #### [facility] ([id number]) [address] [place] [address] 79898 Sodium [Moles/Vol] 138 mmol/L Normal 134-146 [facility] Comment on above: Performed By: #### 8 9579-7, 07294-6, 5643-2, 08394-8, LIVR, 3040-3, CBCA, BMP #### [facility] ([id number]) [address] [place] [address] 28281 Urea nitrogen [Mass/Vol] 10 mg/dL Normal 5-23 [facility] Comment on above: Performed By: #### 8 9579-7, 40515-5, 5643-2, 34788-1, LIVR, 3040-3, CBCA, BMP #### [facility] ([id number]) [address] [place] [address] 14227 LIPASEon 06-27-2024 Lipase [Catalytic activity/Vol] 37 U/L Normal 17-40 [facility] Comment on above: Performed By: #### 8 9579-7, 68324-4, 5643-2, 94581-3, LIVR, 3040-3, CBCA, BMP #### [facility] ([id number]) [address] [place] [address] 47352 BASIC METABOLIC PANLon 06-15 Anion gap [Moles/Vol] 8 mmol/L Normal 5-15 [facility] Comment on above: Performed By: #### 8 9579-7, 98378-3, 5643-2, 88740-2, LIVR, 3040-3, CBCA, BMP #### [facility] ([id number]) [address] [place] [address] 91891 Calcium [Mass/Vol] 9.7 mg/dL Normal 8.5-10.5 [facility] Comment on above: Performed By: #### 8 9579-7, 99088-6, 5643-2, 99769-1, LIVR, 3040-3, CBCA, BMP #### [facility] ([id number]) [address] [place] [address] 20584 Chloride [Moles/Vol] 105 mmol/L Normal 98-109 [facility] Comment on above: Performed By: #### 8 9579-7, 75818-7, 5643-2, 68913-9, LIVR, 3040-3, CBCA, BMP #### [facility] ([id number]) [address] [place] [address] 37550 CO2 [Moles/Vol] 24 mmol/L Normal 22-32 [facility] Comment on above: Performed By: #### 8 9579-7, 65051-1, 5643-2, 88621-1, LIVR, 3040-3, CBCA, BMP #### [facility] ([id number]) [address] [place] [address] 92378 Creatinine [Mass/Vol] 0.78 mg/dL Normal 0.40-1.00 [facility] Comment on above: Result Comment: METH OD TRACEABLE TO IDMS STANDARD Performed By: #### 8 9579-7, 01173-1, 5643-2, 06998-9, LIVR, 3040-3, CBCA, BMP #### [facility] ([id number]) [address] [place] [address] 83445 eGFR (CKD-EPI) NON-RACE DEPENDENT >90 Normal >59 [facility] Comment on above: Result Comment: Reported eGFR is based on the CKD-EPI 2020 equation that does not use a race coefficient. Performed By: #### 8 9579-7, 69807-2, 5643-2, 20654-0, LIVR, 3040-3, CBCA, BMP #### [facility] ([id number]) [address] [place] [address] 93532 Glucose [Mass/Vol] 97 mg/dL Normal 65-99 [facility] Comment on above: Performed By: #### 8 9579-7, 22495-7, 5643-2, 33018-5, LIVR, 3040-3, CBCA, BMP #### [facility] ([id number]) [address] [place] [address] 55515 Potassium [Moles/Vol] 3.3 mmol/L Low 3.5-5.0 [facility] Comment on above: Performed By: #### 8 9579-7, 16967-7, 5643-2, 96168-9, LIVR, 3040-3, CBCA, BMP #### [facility] ([id number]) [address] [place] [address] 83435 Sodium [Moles/Vol] 137 mmol/L Normal 134-146 [facility] Comment on above: Performed By: #### 8 9579-7, 50015-1, 5643-2, 45369-8, LIVR, 3040-3, CBCA, BMP #### [facility] ([id number]) [address] [place] [address] 99316 Urea nitrogen [Mass/Vol] 9 mg/dL Normal 5-23 [facility] Comment on above: Performed By: #### 8 9579-7, 68102-3, 5643-2, 72680-8, LIVR, 3040-3, CBCA, BMP #### [facility] ([id number]) [address] [place] [address] 87772 CBC AND AUTO DIFFon 06-16-19 25 ABSOLUTE BASOPHIL 0.1 X10E9/L Normal 0.0-0.2 [facility] Comment on above: Performed By: #### 8 9579-7, 09005-3, 5643-2, 29185-8, LIVR, 3040-3, CBCA, BMP #### [facility] ([id number]) [address] [place] [address] 40952 ABSOLUTE NEUTROPHIL 6.2 X10E9/L Normal 1.5-6.6 [facility] Comment on above: Performed By: #### 8 9579-7, 92879-9, 5643-2, 55874-4, LIVR, 3040-3, CBCA, BMP #### [facility] ([id number]) [address] [place] [address] 49369 Basophils/100 WBC (Bld) 0.9 % Normal [facility] Comment on above: Performed By: #### 8 9579-7, 14915-0, 5643-2, 29308-3, LIVR, 3040-3, CBCA, BMP #### [facility] ([id number]) [address] [place] [address] 84632 Eosinophils (Bld) [#/Vol] 0.1 10*3/uL Normal 0.0-0.4 [facility] Comment on above: Performed By: #### 8 9579-7, 56015-1, 5643-2, 51486-0, LIVR, 3040-3, CBCA, BMP #### [facility] ([id number]) [address] [place] [address] 02621 Eosinophils/100 WBC (Bld) 1.1 % Normal [facility] Comment on above: Performed By: #### 8 9579-7, 90017-5, 5643-2, 96094-9, LIVR, 3040-3, CBCA, BMP #### [facility] ([id number]) [address] [place] [address] 53442 Erythrocyte distribution width (RBC) [Ratio] 13.3 % Normal 11.5-15.0 [facility] Comment on above: Performed By: #### 8 9579-7, 51266-2, 5643-2, 84982-7, LIVR, 3040-3, CBCA, BMP #### [facility] ([id number]) [address] [place] [address] 16955 Hematocrit (Bld) [Volume fraction] 42.3 % Normal 35-47 [facility] Comment on above: Performed By: #### 8 9579-7, 78575-5, 5643-2, 07043-6, LIVR, 3040-3, CBCA, BMP #### [facility] ([id number]) [address] [place] [address] 29358 Hemoglobin (Bld) [Mass/Vol] 14.3 g/dL Normal 11.7-15.5 [facility] Comment on above: Performed By: #### 8 9579-7, 81687-8, 5643-2, 56137-2, LIVR, 3040-3, CBCA, BMP #### [facility] ([id number]) [address] [place] [address] 52612 Lymphocytes (Bld) [#/Vol] 2.6 10*3/uL Normal 1.0-3.5 [facility] Comment on above: Performed By: #### 8 9579-7, 70693-4, 5643-2, 90114-0, LIVR, 3040-3, CBCA, BMP #### [facility] ([id number]) [address] [place] [address] 54584 Lymphocytes/100 WBC (Bld) 26.2 % Normal [facility] Comment on above: Performed By: #### 8 9579-7, 08186-1, 5643-2, 09165-7, LIVR, 3040-3, CBCA, BMP #### [facility] ([id number]) [address] [place] [address] 26162 MCH (RBC) [Entitic mass] 33.5 pg Normal 27-34 [facility] Comment on above: Performed By: #### 8 9579-7, 39494-7, 5643-2, 87679-2, LIVR, 3040-3, CBCA, BMP #### [facility] ([id number]) [address] [place] [address] 23075 MCHC (RBC) [Mass/Vol] 33.8 g/dL Normal 32-36 [facility] Comment on above: Performed By: #### 8 9579-7, 85151-4, 5643-2, 65830-3, LIVR, 3040-3, CBCA, BMP #### [facility] ([id number]) [address] [place] [address] 91550 MCV (RBC) [Entitic vol] 99 fL Normal 80-100 [facility] Comment on above: Performed By: #### 8 9579-7, 89004-5, 5643-2, 89153-0, LIVR, 3040-3, CBCA, BMP #### [facility] ([id number]) [address] [place] [address] 43105 Monocytes (Bld) [#/Vol] 0.8 10*3/uL Normal 0-0.9 [facility] Comment on above: Performed By: #### 8 9579-7, 19132-6, 5643-2, 99769-6, LIVR, 3040-3, CBCA, BMP #### [facility] ([id number]) [address] [place] [address] 41580 Monocytes/100 WBC (Bld) 8.3 % Normal [facility] Comment on above: Performed By: #### 8 9579-7, 56204-5, 5643-2, 90972-2, LIVR, 3040-3, CBCA, BMP #### [facility] ([id number]) [address] [place] [address] 85617 Neutrophils/100 WBC (Bld) 63.5 % Normal [facility] Comment on above: Performed By: #### 8 9579-7, 29134-7, 5643-2, 06979-4, LIVR, 3040-3, CBCA, BMP #### [facility] ([id number]) [address] [place] [address] 10863 Platelet mean volume (Bld) [Entitic vol] 8.0 fL Normal 7-12 [facility] Comment on above: Performed By: #### 8 9579-7, 12126-0, 5643-2, 81714-4, LIVR, 3040-3, CBCA, BMP #### [facility] ([id number]) [address] [place] [address] 96017 Platelets (Bld) [#/Vol] 263 10*3/uL Normal 150-450 [facility] Comment on above: Performed By: #### 8 9579-7, 62318-3, 5643-2, 69312-6, LIVR, 3040-3, CBCA, BMP #### [facility] ([id number]) [address] [place] [address] 22752 RBC COUNT 4.28 X10E12/L Normal 3.80-5.20 [facility] Comment on above: Performed By: #### 8 9579-7, 10972-2, 5643-2, 63002-9, LIVR, 3040-3, CBCA, BMP #### [facility] ([id number]) [address] [place] [address] 06074 WBC (Bld) [#/Vol] 9.8 10*3/uL Normal 4.0-11.0 [facility] Comment on above: Performed By: #### 8 9579-7, 37930-0, 5643-2, 35137-1, LIVR, 3040-3, CBCA, BMP #### [facility] ([id number]) [address] [place] [address] 16803 ETHANOLon 06-15-2024 Ethanol [Mass/Vol] mg/dL Normal 0.00-0.08 [facility] Comment on above: Result Comment: This report is intended for use in clinical monitoring or management of patients. Performed By: #### 8 9579-7, 15075-3, 5643-2, 93060-9, LIVR, 3040-3, CBCA, BMP #### [facility] ([id number]) [address] [place] [address] 94247 LIPASEon 06-15-2024 Lipase [Catalytic activity/Vol] 83 U/L High 17-40 [facility] Comment on above: Performed By: #### 8 9579-7, 40342-5, 5643-2, 45581-9, LIVR, 3040-3, CBCA, BMP #### [facility] ([id number]) [address] [place] [address] 22987 LIVER PANELon 06-15-2024 Albumin [Mass/Vol] 4.2 g/dL Normal 3.2-5.3 [facility] Comment on above: Performed By: #### 8 9579-7, 78199-4, 5643-2, 57380-4, LIVR, 3040-3, CBCA, BMP #### [facility] ([id number]) [address] [place] [address] 19802 ALP [Catalytic activity/Vol] 106 U/L Normal 39-130 [facility] Comment on above: Performed By: #### 8 9579-7, 74187-4, 5643-2, 71190-0, LIVR, 3040-3, CBCA, BMP #### [facility] ([id number]) [address] [place] [address] 11014 ALT [Catalytic activity/Vol] 12 U/L Normal 0-31 [facility] Comment on above: Performed By: #### 8 9579-7, 82497-7, 5643-2, 17931-9, LIVR, 3040-3, CBCA, BMP #### [facility] ([id number]) [address] [place] [address] 45219 AST [Catalytic activity/Vol] 18 U/L Normal 0-41 [facility] Comment on above: Performed By: #### 8 9579-7, 59027-5, 5643-2, 46303-4, LIVR, 3040-3, CBCA, BMP #### [facility] ([id number]) [address] [place] [address] 92904 Bilirubin [Mass/Vol] 0.3 mg/dL Normal 0.3-1.2 [facility] Comment on above: Performed By: #### 8 9579-7, 90445-5, 5643-2, 67853-1, LIVR, 3040-3, CBCA, BMP #### [facility] ([id number]) [address] [place] [address] 78025 Bilirubin.indirect [Mass/Vol] mg/dL Normal 0.0-0.4 [facility] Comment on above: Performed By: #### 8 9579-7, 89836-7, 5643-2, 96075-0, LIVR, 3040-3, CBCA, BMP #### [facility] ([id number]) [address] [place] [address] 08589 Protein [Mass/Vol] 7.0 g/dL Normal 6.0-8.0 [facility] Comment on above: Performed By: #### 8 9579-7, 21701-1, 5643-2, 02540-6, LIVR, 3040-3, CBCA, BMP #### [facility] ([id number]) [address] [place] [address] 63061 Lactate (P richard) [Moles/Vol]o n 06-15-2024 LACTATE W/REFLEX 1.1 mmol/L Normal 0.4-2.0 [facility] Comment on above: Result Comment: Result did not trigger repeat Lactate, re-order if needed. Performed By: #### 8 9579-7, 33150-6, 5643-2, 31888-6, LIVR, 3040-3, CBCA, BMP #### [facility] ([id number]) [address] [place] [address] 09786 MAGNESIUMon 06-15-2024 Magnesium [Mass/Vol] 2.1 mg/dL Normal 1.8-2.6 [facility] Comment on above: Performed By: #### 8 9579-7, 55052-5, 5643-2, 40920-3, LIVR, 3040-3, CBCA, BMP #### [facility] ([id number]) [address] [place] [address] 79827 CBC AND AUTO DIFFon 06-01-19 ABSOLUTE BASOPHIL 0.1 X10E9/L Normal 0.0-0.2 [facility] Comment on above: Performed By: #### 8 9579-7, 29054-1, 5643-2, 96771-7, LIVR, 3040-3, CBCA, BMP #### [facility] ([id number]) [address] [place] [address] 90503 ABSOLUTE NEUTROPHIL 7.2 X10E9/L High 1.5-6.6 [facility] Comment on above: Performed By: #### 8 9579-7, 21264-5, 5643-2, 36654-6, LIVR, 3040-3, CBCA, BMP #### [facility] ([id number]) [address] [place] [address] 26784 Basophils/100 WBC (Bld) 1.3 % Normal [facility] Comment on above: Performed By: #### 8 9579-7, 56337-5, 5643-2, 23835-8, LIVR, 3040-3, CBCA, BMP #### [facility] ([id number]) [address] [place] [address] 74169 Eosinophils (Bld) [#/Vol] 0.1 10*3/uL Normal 0.0-0.4 [facility] Comment on above: Performed By: #### 8 9579-7, 92423-6, 5643-2, 72821-4, LIVR, 3040-3, CBCA, BMP #### [facility] ([id number]) [address] [place] [address] 04218 Eosinophils/100 WBC (Bld) 0.9 % Normal [facility] Comment on above: Performed By: #### 8 9579-7, 35576-2, 5643-2, 14603-4, LIVR, 3040-3, CBCA, BMP #### [facility] ([id number]) [address] [place] [address] 95427 Erythrocyte distribution width (RBC) [Ratio] 13.1 % Normal 11.5-15.0 [facility] Comment on above: Performed By: #### 8 9579-7, 03697-9, 5643-2, 94784-9, LIVR, 3040-3, CBCA, BMP #### [facility] ([id number]) [address] [place] [address] 39477 Hematocrit (Bld) [Volume fraction] 40.2 % Normal 35-47 [facility] Comment on above: Performed By: #### 8 9579-7, 42041-5, 5643-2, 98539-3, LIVR, 3040-3, CBCA, BMP #### [facility] ([id number]) [address] [place] [address] 63246 Hemoglobin (Bld) [Mass/Vol] 14.0 g/dL Normal 11.7-15.5 [facility] Comment on above: Performed By: #### 8 9579-7, 25140-8, 5643-2, 39953-3, LIVR, 3040-3, CBCA, BMP #### [facility] ([id number]) [address] [place] [address] 30402 Lymphocytes (Bld) [#/Vol] 2.7 10*3/uL Normal 1.0-3.5 [facility] Comment on above: Performed By: #### 8 9579-7, 51059-5, 5643-2, 46963-5, LIVR, 3040-3, CBCA, BMP #### [facility] ([id number]) [address] [place] [address] 33888 Lymphocytes/100 WBC (Bld) 24.0 % Normal [facility] Comment on above: Performed By: #### 8 9579-7, 23634-4, 5643-2, 30113-8, LIVR, 3040-3, CBCA, BMP #### [facility] ([id number]) [address] [place] [address] 14296 MCH (RBC) [Entitic mass] 34.0 pg Normal 27-34 [facility] Comment on above: Performed By: #### 8 9579-7, 27293-4, 5643-2, 25397-8, LIVR, 3040-3, CBCA, BMP #### [facility] ([id number]) [address] [place] [address] 18345 MCHC (RBC) [Mass/Vol] 34.7 g/dL Normal 32-36 [facility] Comment on above: Performed By: #### 8 9579-7, 44350-0, 5643-2, 40453-6, LIVR, 3040-3, CBCA, BMP #### [facility] ([id number]) [address] [place] [address] 47064 MCV (RBC) [Entitic vol] 98 fL Normal 80-100 [facility] Comment on above: Performed By: #### 8 9579-7, 41683-4, 5643-2, 28643-3, LIVR, 3040-3, CBCA, BMP #### [facility] ([id number]) [address] [place] [address] 47618 Monocytes (Bld) [#/Vol] 1.1 10*3/uL High 0-0.9 [facility] Comment on above: Performed By: #### 8 9579-7, 46667-1, 5643-2, 60068-1, LIVR, 3040-3, CBCA, BMP #### [facility] ([id number]) [address] [place] [address] 70879 Monocytes/100 WBC (Bld) 9.6 % Normal [facility] Comment on above: Performed By: #### 8 9579-7, 06768-6, 5643-2, 85619-7, LIVR, 3040-3, CBCA, BMP #### [facility] ([id number]) [address] [place] [address] 08466 Neutrophils/100 WBC (Bld) 64.2 % Normal [facility] Comment on above: Performed By: #### 8 9579-7, 58295-1, 5643-2, 44682-9, LIVR, 3040-3, CBCA, BMP #### [facility] ([id number]) [address] [place] [address] 78346 Platelet mean volume (Bld) [Entitic vol] 7.8 fL Normal 7-12 [facility] Comment on above: Performed By: #### 8 9579-7, 52556-6, 5643-2, 92120-7, LIVR, 3040-3, CBCA, BMP #### [facility] ([id number]) [address] [place] [address] 60701 Platelets (Bld) [#/Vol] 302 10*3/uL Normal 150-450 [facility] Comment on above: Performed By: #### 8 9579-7, 82549-6, 5643-2, 83041-2, LIVR, 3040-3, CBCA, BMP #### [facility] ([id number]) [address] [place] [address] 90256 RBC COUNT 4.11 X10E12/L Normal 3.80-5.20 [facility] Comment on above: Performed By: #### 8 9579-7, 12539-6, 5643-2, 19506-2, LIVR, 3040-3, CBCA, BMP #### [facility] ([id number]) [address] [place] [address] 89005 WBC (Bld) [#/Vol] 11.2 10*3/uL High 4.0-11.0 [facility] Comment on above: Performed By: #### 8 9579-7, 94790-9, 5643-2, 97842-7, LIVR, 3040-3, CBCA, BMP #### [facility] ([id number]) [address] [place] [address] 05291 COMPREHENSIVE METABOLIC PANE [facility] 05-31-2024 Albumin [Mass/Vol] 4.0 g/dL Normal 3.2-5.3 [facility] Comment on above: Performed By: #### 8 9579-7, 29789-8, 5643-2, 45557-0, LIVR, 3040-3, CBCA, BMP #### [facility] ([id number]) [address] [place] [address] 32377 ALP [Catalytic activity/Vol] 97 U/L Normal 39-130 [facility] Comment on above: Performed By: #### 8 9579-7, 60206-0, 5643-2, 31918-6, LIVR, 3040-3, CBCA, BMP #### [facility] ([id number]) [address] [place] [address] 28563 ALT [Catalytic activity/Vol] 12 U/L Normal 0-31 [facility] Comment on above: Performed By: #### 8 9579-7, 06963-8, 5643-2, 17231-2, LIVR, 3040-3, CBCA, BMP #### [facility] ([id number]) [address] [place] [address] [place] [address] Anion gap [Moles/Vol] 7 mmol/L Normal 5-15 [facility] Comment on above: Performed By: #### 8 9579-7, 53472-2, 5643-2, 15540-3, LIVR, 3040-3, CBCA, BMP #### [facility] ([id number]) [address] [place] [address] 11444 AST [Catalytic activity/Vol] 19 U/L Normal 0-41 [facility] Comment on above: Performed By: #### 8 9579-7, 34345-1, 5643-2, 95329-9, LIVR, 3040-3, CBCA, BMP #### [facility] ([id number]) [address] [place] [address] 84120 Bilirubin [Mass/Vol] 0.4 mg/dL Normal 0.3-1.2 [facility] Comment on above: Performed By: #### 8 9579-7, 58332-0, 5643-2, 70484-5, LIVR, 3040-3, CBCA, BMP #### [facility] ([id number]) [address] [place] [address] 86430 Calcium [Mass/Vol] 9.3 mg/dL Normal 8.5-10.5 [facility] Comment on above: Performed By: #### 8 9579-7, 88822-5, 5643-2, 21115-8, LIVR, 3040-3, CBCA, BMP #### [facility] ([id number]) [address] [place] [address] 25772 Chloride [Moles/Vol] 106 mmol/L Normal 98-109 [facility] Comment on above: Performed By: #### 8 9579-7, 05312-5, 5643-2, 87917-9, LIVR, 3040-3, CBCA, BMP #### [facility] ([id number]) [address] [place] [address] 83416 CO2 [Moles/Vol] 23 mmol/L Normal 22-32 [facility] Comment on above: Performed By: #### 8 9579-7, 25476-9, 5643-2, 61709-6, LIVR, 3040-3, CBCA, BMP #### [facility] ([id number]) [address] [place] [address] 47484 Creatinine [Mass/Vol] 0.60 mg/dL Normal 0.40-1.00 [facility] Comment on above: Result Comment: METH OD TRACEABLE TO IDMS STANDARD Performed By: #### 8 9579-7, 42454-7, 5643-2, 38120-2, LIVR, 3040-3, CBCA, BMP #### [facility] ([id number]) [address] [place] [address] 94362 eGFR (CKD-EPI) NON-RACE DEPENDENT >90 Normal >59 [facility] Comment on above: Result Comment: Reported eGFR is based on the CKD-EPI 2020 equation that does not use a race coefficient. Performed By: #### 8 9579-7, 41175-3, 5643-2, 63411-3, LIVR, 3040-3, CBCA, BMP #### [facility] ([id number]) [address] [place] [address] 33913 Glucose [Mass/Vol] 101 mg/dL High 65-99 [facility] Comment on above: Performed By: #### 8 9579-7, 79096-4, 5643-2, 30862-6, LIVR, 3040-3, CBCA, BMP #### [facility] ([id number]) [address] [place] [address] 90309 Potassium [Moles/Vol] 3.6 mmol/L Normal 3.5-5.0 [facility] Comment on above: Performed By: #### 8 9579-7, 64099-1, 5643-2, 82240-2, LIVR, 3040-3, CBCA, BMP #### [facility] ([id number]) [address] [place] [address] 29277 Protein [Mass/Vol] 7.2 g/dL Normal 6.0-8.0 [facility] Comment on above: Performed By: #### 8 9579-7, 40634-5, 5643-2, 69539-4, LIVR, 3040-3, CBCA, BMP #### [facility] ([id number]) [address] [place] [address] 28269 Sodium [Moles/Vol] 136 mmol/L Normal 134-146 [facility] Comment on above: Performed By: #### 8 9579-7, 97850-1, 5643-2, 78127-9, LIVR, 3040-3, CBCA, BMP #### [facility] ([id number]) [address] [place] [address] 82343 Urea nitrogen [Mass/Vol] 11 mg/dL Normal 5-23 [facility] Comment on above: Performed By: #### 8 9579-7, 79301-7, 5643-2, 31490-8, LIVR, 3040-3, CBCA, BMP #### [facility] ([id number]) [address] [place] [address] 72293 LIPASEon 05-31-2024 Lipase [Catalytic activity/Vol] 104 U/L High 17-40 [facility] Comment on above: Performed By: #### 8 9579-7, 02217-9, 5643-2, 46346-2, LIVR, 3040-3, CBCA, BMP #### [facility] ([id number]) [address] [place] [address] 30921 Basic Metabolic Panelon 03-11 Anion gap [Moles/Vol] 8 mmol/L Low 9 - 16 mmol/L [facility] Calcium [Mass/Vol] 8.3 mg/dL Low 8.6 - 10. 4 mg/dL [facility] Chloride [Moles/Vol] 108 mmol/L High 98 - 10 7 mmol/L [facility] CO2 [Moles/Vol] 23 mmol/L 20 - 31 mmol/L [facility] Creatinine [Mass/Vol] 0.6 mg/dL 0.50 - 0.90 mg/dL [facility] Est, Kaylyn Gordon Rate - PINF [facility] Comment on above: These [...] [Mass/Vol] 83 mg/dL 74 - 99 mg/dL [facility] Potassium [Moles/Vol] 4.0 mmol/L 3.7 - 5.3 mmol/L [facility] Sodium [Moles/Vol] 139 mmol/L 136 - 145 mmol/L [facility] Urea nitrogen [Mass/Vol] 10 mg/dL 6 - 20 mg/dL [facility] Urea nitrogen/Creatinine [Mass ratio] 17 mg/mg 9 - 20 [facility] Basic Metabolic Profon 04-07 Anion gap [Moles/Vol] 8 mmol/L Low 9-16 [facility] Comment on above: Performed By: #### B LIZY LIVP, LIP #### [facility] [address] [place] [address] [employer] Installer: Ion Jasso MD BUN/CRE Ratio 17 Normal - [facility] Comment on above: Performed By: #### B LIZY LIVP, LIP #### [facility] [address] [place] [address] [employer] Installer: Ion Jasso MD Calcium [Mass/Vol] 8.3 mg/dL Low 8.6-10.4 [facility] Comment on above: Performed By: #### B MP, LIVP, LIP #### [facility] [address] [place] [address] [employer] Installer: Ion Jasso MD Chloride [Moles/Vol] 108 mmol/L High 98-107 [facility] Comment on above: Performed By: #### B MP, LIVP, LIP #### [facility] [address] [place], [place] [address] [employer] Installer: Ion Jasso MD CO2 [Moles/Vol] 23 mmol/L Normal 20-31 [facility] Comment on above: Performed By: #### B MP, LIVP, LIP #### [facility] [address] [place] [address] [employer] Installer: Ion Jasso MD Creatinine [Mass/Vol] 0.6 mg/dL Normal 0.50-0.90 [facility] Comment on above: Performed By: #### B MP, LIVP, LIP #### [facility] [address] [place] [address] [employer] Installer: Ion Jasso MD GFR/1.73 sq M.predicted among [...] By: #### B MP, LIVP, LIP #### [facility] [address] [place] [address] [employer]er: Ion Jasso MD Glucose [Mass/Vol] 83 mg/dL Normal 74-99 [facility] Comment on above: Performed By: #### B MP, LIVP, LIP #### [facility] [address] [place] [address] [employer] Installer: Ion Jasso MD Potassium [Moles/Vol] 4.0 mmol/L Normal 3.7-5.3 [facility] Comment on above: Performed By: #### B MP, LIVP, LIP #### [facility] [address] [place] [address] [employer] Installer: Ion Jasso MD Sodium [Moles/Vol] 139 mmol/L Normal 136-145 [facility] Comment on above: Performed By: #### B LIZY LIVP, LIP #### [facility] [address] [place] [address] [employer]er: Ion Jasso MD Urea nitrogen [Mass/Vol] 10 mg/dL Normal 6-20 [facility] Comment on above: Performed By: #### B LIZY LIVP, LIP #### [facility] [address] [place] [address] [employer] Installer: Ion Jasso MD CBC with Auto Differentialon 04-07-2024 Basophils (Bld) [#/Vol] 0.08 10*3/uL [facility] Basophils/100 WBC (Bld) 1 % 0 - 2 % [facility] Eosinophils (Bld) [#/Vol] 0.13 10*3/uL [facility] Eosinophils/100 WBC (Bld) 1 % 1 - 4 % [facility] Erythrocyte distribution width (RBC) [Ratio] 13.1 % 11.8 - 14.4 % [facility] Hematocrit (Bld) [Volume fraction] 40.1 % 36.3 - 47.1 % [facility] Hemoglobin (Bld) [Mass/Vol] 14.0 g/dL 11.9 - 15.1 g/dL [facility] Immature granulocytes (Bld) [#/Vol] 0.03 10*3/uL [facility] Immature granulocytes/100 WBC (Bld) 0 % 0 [facility] Interpretation and review of laboratory results Abnormal [facility] Lymphocytes/100 WBC (Bld) 26 % 24 - 43 % [facility] Lymphocytes/100 WBC (Bld) 2.39 % [facility] MCH (RBC) [Entitic mass] 33.9 pg High 25.2 - 33.5 pg [facility] MCHC (RBC) [Mass/Vol] 34.9 g/dL High 28.4 - 34.8 g/dL [facility] MCV (RBC) [Entitic vol] 97.1 fL 82.6 - 102.9 fL [facility] Monocytes/100 WBC (Bld) 8 % 3 - 12 % [facility] Monocytes/100 WBC (Bld) 0.76 % [facility] Neutrophils/100 WBC (Bld) 64 % 36 - 65 % [facility] Nucleated RBC/100 WBC (Bld) [Ratio] 0.0 % 0.0 per 100 WBC [facility] Platelet mean volume (Bld) [Entitic vol] 10.6 fL 8.1 - 13.5 fL [facility] Platelets (Bld) [#/Vol] 267 10*3/uL [facility] RBC (Bld) [#/Vol] 4.13 10*6/uL 3.95 - 5.11 m/uL [facility] Segmented neutrophils/100 WBC (Bld) 5.87 % [facility] WBC other (Bld) [#/Vol] 9.3 [facility] CBC with Diffon 04-07-2024 Abs. Basophil 0.08 k/uL Normal 0.00-0.20 [facility] Comment on above: Performed By: #### B MP, LIVP, LIP #### [facility] [address] [place] [address] [employer] Installer: Ion Jasso MD Abs.Imm.Granulocyte 0.03 k/uL Normal 0.00-0.30 [facility] Comment on above: Performed By: #### B MP, LIVP, LIP #### [facility] [address] [place] [address] [address] [place], [place] [address] [employer] Installer: Ion Jasso MD Abs.Neutrophil (Seg) 5.87 k/uL Normal 1.50-8.10 [facility] Comment on above: Performed By: #### B MP, LIVP, LIP #### [address] [place] [address] [employer]er: Ion Jasso MD Basophils/100 WBC (Bld) 1 % Normal 0-2 [facility] Comment on above: Performed By: #### B MP, LIVP, LIP #### [address] [place] [address] [employer]er: Ion Jasso MD Eosinophils (Bld) [#/Vol] 0.13 10*3/uL Normal 0.00-0.44 [facility] Comment on above: Performed By: #### B MP, LIVP, LIP #### [address] [place] [address] [employer]er: Ion Jasso MD Eosinophils/100 WBC (Bld) 1 % Normal 1-4 [facility] Comment on above: Performed By: #### B MP, LIVP, LIP #### [address] [place], [place] [address] [employer] Installer: Ion Jasso MD Erythrocyte distribution width (RBC) [Ratio] 13.1 % Normal 11.8-14.4 [facility] Comment on above: Performed By: #### B MP, LIVP, LIP #### [address] [place], [facility] [employer] Installer: Ion Jasso MD Hematocrit (Bld) [Volume fraction] 40.1 % Normal 36.3-47.1 [facility] Comment on above: Performed By: #### B MP, LIVP, LIP #### [address] [place], [place] [address] [employer]er: Ion Jasso MD Hemoglobin (Bld) [Mass/Vol] 14.0 g/dL Normal 11.9-15.1 [facility] Comment on above: Performed By: #### B MP, LIVP, LIP #### [address] [place], [place] [address] [employer] Installer: Ion Jasso MD Immature granulocytes/100 WBC (Bld) 0 % Normal 0 [facility] Comment on above: Performed By: #### B MP, LIVP, LIP #### [address] [place], [facility] [employer] Installer: Ion Jasso MD Lymphocytes (Bld) [#/Vol] 2.39 10*3/uL Normal 1.10-3.70 [facility] Comment on above: Performed By: #### B MP, LIVP, LIP #### [address] [place], [facility]83 [employer] Installer: Ion Jasso MD Lymphocytes/100 WBC (Bld) 26 % Normal 24-43 [facility] Comment on above: Performed By: #### B MP, LIVP, LIP #### [address] [place], [place] [address] [employer] Installer: Ion Jasso MD MCH (RBC) [Entitic mass] 33.9 pg High 25.2-33.5 [facility] Comment on above: Performed By: #### B MP, LIVP, LIP #### [address] [place], [place] [address] [employer]er: Ion Jasso MD MCHC (RBC) [Mass/Vol] 34.9 g/dL High 28.4-34.8 [facility] Comment on above: Performed By: #### B MP, LIVP, LIP #### [facility] [address] [place] [address] [employer]er: Ion Jasso MD MCV (RBC) [Entitic vol] 97.1 fL Normal 82.6-102.9 [facility] Comment on above: Performed By: #### B MP, LIVP, LIP #### [facility] [address] [place], [facility]83 [employer] Installer: Ion Jasso MD Monocytes (Bld) [#/Vol] 0.76 10*3/uL Normal 0.10-1.20 [facility] Comment on above: Performed By: #### B MP, LIVP, LIP #### [address] [place], [place] [id number] [employer]er: Ion Jasso MD Monocytes/100 WBC (Bld) 8 % Normal 3-12 [facility] Comment on above: Performed By: #### B MP, LIVP, LIP #### [address] [place], [facility]83 [employer]er: Ion Jasso MD Neutrophil (Seg) 64 % Normal 36-65 [facility] Comment on above: Performed By: #### B MP, LIVP, LIP #### [address] [place], [facility]83 [employer]er: Ion Jasso MD NRBC Automated 0.0 per 100 WBC Normal 0.0 [facility] Comment on above: Performed By: #### B MP, LIVP, LIP #### [address] [place], [facility]83 [employer]er: Ion Jasso MD Platelet mean volume (Bld) [Entitic vol] 10.6 fL Normal 8.1-13.5 [facility] Comment on above: Performed By: #### B MP, LIVP, LIP #### [address] [place], [place] [id number] [employer]er: Ion Jasso MD Platelets (Bld) [#/Vol] 267 10*3/uL Normal 138-453 [facility] Comment on above: Performed By: #### B MP, LIVP, LIP #### [address] [place], [place] [id number] [employer]er: Ion Jasso MD RBC (Bld) [#/Vol] 4.13 10*6/uL Normal 3.95-5.11 [facility] Comment on above: Performed By: #### B MP, LIVP, LIP #### [address] [place], [place] [id number] [employer]er: Ion Jasso MD WBC (Bld) [#/Vol] 9.3 10*3/uL Normal 3.5-11.3 [facility] Comment on above: Performed By: #### B MP, LIVP, LIP #### [address] [place], [place] [phone] [employer] Installer: Ion Jasso MD CT ABDOMEN PELVIS W [...] pancreatic duct. 3. Status post cholecystectomy. [facility] RIS CONSOLIDATED EXAMINATION: CT OF THE [...] lytic or blastic osseous lesions are identified. [facility] CONSOLIDATED Sarah Tran MD - [...] and pancreatic duct. 3. Status post cholecystectomy. [facility] (narrative) [facility] H[facility] CT Abdomen and Pelvis W cont rast IVOrdered By: Sarah Tran on 04-07-2024 [facility]Roster[facility] Work Phone: Hepatic Function Panelon Albumin [Mass/Vol] 3.9 g/dL 3.5 - 5.2 g/dL [facility] [employer] Albumin/Globulin [Mass ratio] 1.7 {ratio} 1.0 - 2.5 [facility] [employer] ALP [Catalytic activity/Vol] 119 U/L High 35 - 104 U/L [facility] [employer] ALT [Catalytic activity/Vol] 11 U/L 10 - 35 U/L [facility] AST [Catalytic activity/Vol] 30 U/L 10 - 35 U/L [facility] Bilirubin [Mass/Vol] mg/dL 0.00 - 1.20 mg/dL [facility] Bilirubin.direct [Mass/Vol] mg/dL 0.00 - 0.30 mg/dL [facility] Bilirubin.indirect [Mass/Vol] Can not be calculated 0.0 - 1.0 mg/dL [facility] Protein [Mass/Vol] 6.1 g/dL Low 6.6 - 8.7 g/dL [facility] Lipaseon 04-07-2024 Lipase [Catalytic activity/Vol] 266 U/L High 13 - 60 U/L [facility] Lipase [Catalytic activity/Vol] 266 U/L High 13-60 [facility] Comment on above: Performed By: #### B MP, LIVP, LIP #### [facility] [address] [place] [address] [employer] Installer: Ion Jasso MD Liver Profileon 04-07-2024 Albumin [Mass/Vol] 3.9 g/dL Normal 3.5-5.2 [facility] Comment on above: Performed By: #### B MP, LIVP, LIP #### [facility] [address] [place], [place] [address]383 [employer] Installer: Ion Jasso MD Albumin/Glob Ratio 1.7 Normal 1.0-2.5 [facility] Comment on above: Performed By: #### B MP, LIVP, LIP #### [facility] [address] [place] [address] [employer] Installer: Ion Jasso MD Alkaline Phos 119 U/L High 35-104 [facility] Comment on above: Performed By: #### B MP, LIVP, LIP #### [facility] [address] [place], [place] [address]83 [employer] Installer: Ion Jasso MD ALT [Catalytic activity/Vol] 11 U/L Normal 10-35 [facility] Comment on above: Performed By: #### B MP, LIVP, LIP #### [facility] [address] [place], [place] [address]183 [employer] Installer: Ion Jasso MD AST [Catalytic activity/Vol] 30 U/L Normal 10-35 [facility] Comment on above: Performed By: #### B MP, LIVP, LIP #### [facility] [address] [place], [place] [address]83 [employer] Installer: Ion Jasso MD Bilirubin [Mass/Vol] mg/dL Normal 0.00-1.20 [facility] Comment on above: Performed By: #### B MP, LIVP, LIP #### [facility] [address] [place] [address] Dr[address] [place], [place] [phone] [employer] Installer: Ion Jasso MD Bilirubin, Indirect Can not be calculated Normal 0.0-1 .0 [facility] Comment on above: Performed By: #### B MP, LIVP, LIP #### [facility] [address] [place] [address] Dr[address] [place], [place] 9[address]8583 [employer] Installer: Ion Jasso MD Bilirubin.indirect [Mass/Vol] mg/dL Normal 0.00-0.30 [facility] Comment on above: Performed By: #### B MP, LIVP, LIP #### [facility] [address] [place] [address] [place] [place], [place] 74[address]83 [employer] Installer: Ion Jasso MD Protein [Mass/Vol] 6.1 g/dL Low 6.6-8.7 [facility] Comment on above: Performed By: #### B MP, LIVP, LIP #### [facility] [address] [place], [place] [address] [employer] Installer: Ion Jasso MD No Panel Informationon 04-07 Interpretation and review of laboratory results Abnormal [facility] Specimen Rejectionon 025 Reason for rejection Unable to perform testing: Specimen hemolyzed. [facility] Comment on above: Performed By: #### B MP, LIVP, LIP #### [facility] [address] [place] [address] [employer] Installer: Ion Jasso MD Source of sample .BLOOD [facility] Comment on above: Performed By: #### B MP, LIVP, LIP #### [facility] [address] [place] [address] [employer] Installer: Ion Jasso MD Test ordered LIP,LIVP, BMP [facility] Comment on above: Performed By: #### B MP, LIVP, LIP #### [facility] [address] [place] [address] [employer] Installer: Ion Jasso MD Urinalysison 04-07-2024 Bilirubin Ql (U) Negative NEGATIVE [facility] Clarity (U) Clear Clear [facility] Color (U) Yellow Yellow [facility] Glucose Test strip (U) [Mass/Vol] Negative NEGATIVE mg/dL [facility] Hemoglobin Auto test strip Ql (U) Negative NEGATIVE [facility] Ketones (U) [Mass/Vol] Negative NEGAT MATTHIAS mg/dL [facility] Leukocyte esterase Test strip Ql (U) Negative NEGATIVE [facility] Nitrite Ql (U) Negative NEGATIVE [facility] pH (U) 5.5 [pH] 5.0 - 9.0 [facility] Protein (U) [Mass/Vol] Negative NEGAT MATTHIAS mg/dL [facility] Specific gravity (U) [Rel density] 1.010 1.010 - 1.020 [facility] Urobilinogen Qn (U) Normal 0.0 - 1. 0 EU/dL [facility] Urinalysis, Routineon 2024 Bilirubin, SemiQt,Ur Negative Normal NEG [facility] Comment on above: Performed By: #### B MP, LIVP, LIP #### [facility] [address] [place], [place] [address] [employer] Installer: Ion Jasso MD Blood, Urine Negative Normal NEG [facility] Comment on above: Performed By: #### B MP, LIVP, LIP #### [facility] [address] [place], [place] [address]447883 [employer] Installer: Ion Jasso MD Clarity (U) Clear Normal CLEAR [facility] Comment on above: Performed By: #### B MP, LIVP, LIP #### [facility] [address] [place], [place] [address] [employer] Installer: Ion Jasso MD Color (U) Yellow Normal YEL [facility] Comment on above: Performed By: #### B MP, LIVP, LIP #### [facility] [address] [place] [address] Dr. [place], [place] 1212383 [employer] Installer: Ion Jasso MD Glucose Ql (U) Negative Normal NEG [facility] Comment on above: Performed By: #### B MP, LIVP, LIP #### [address] [place], [place] [address]83 [employer] Installer: Ion Jasso MD Ketones Ql (U) Negative Normal NEG [facility] Comment on above: Performed By: #### B MP, LIVP, LIP #### [address] [place], [place] [address]83 [employer] Installer: Ion Jasso MD Leukocyte esterase Test strip Ql (U) Negative Normal NEG [facility] Comment on above: Performed By: #### B MP, LIVP, LIP #### [address] [place], [place] 288[address]83 [employer] Installer: Ion Jasso MD Nitrite,Ur Negative Normal NEG [facility] Comment on above: Performed By: #### B MP, LIVP, LIP #### [facility] [address] [place] [address] Dr. [place], [place] 0245283 [employer] Installer: Ion Jasso MD PH,Ur 5.5 Normal 5.0-9.0 [facility] Comment on above: Performed By: #### B MP, LIVP, LIP #### [facility] [address] [place], [place] [address]83 [employer] Installer: Ion Jasso MD Protein Ql (U) Negative Normal NEG [facility] Comment on above: Performed By: #### B MP, LIVP, LIP #### [facility] [address] [place], [place] [address]83 [employer] Installer: Ion Jasso MD Spec. [place],Ur 1.010 Normal 1.010-1.02 0 [facility] Comment on above: Performed By: #### B MP, LIVP, LIP #### [address] [place], [place] [address]36[address]83 [employer] Installer: Ion Jasso MD Urobilinogen,Ur Normal Normal 0.0-1.0 [facility] Comment on above: Performed By: #### B MP, LIVP, LIP #### [address] [place], [place] 974[address]83 [employer] Installer: Ion Jasso MD CBC AND AUTO DIFFon 10-20 25 ABSOLUTE BASOPHIL 0.1 X10E9/L Normal 0.0-0.2 [facility] Comment on above: Performed By: #### 8 9579-7, 80761-4, 5643-2, 93851-4, LIVR, 3040-3, CBCA, BMP #### [facility] ([id number]) [address] [place] [address], [place] [address] ABSOLUTE NEUTROPHIL 7.7 X10E9/L High 1.5-6.6 [facility] Comment on above: Performed By: #### 8 9579-7, 14305-4, 5643-2, 16912-3, LIVR, 3040-3, CBCA, BMP #### [facility] ([id number]) [address] [place] [address] 28553 Basophils/100 WBC (Bld) 0.8 % Normal [facility] Comment on above: Performed By: #### 8 9579-7, 44562-2, 5643-2, 05169-4, LIVR, 3040-3, CBCA, BMP #### [facility] ([id number]) [address] [place] [address] 62604 Eosinophils (Bld) [#/Vol] 0.1 10*3/uL Normal 0.0-0.4 [facility] Comment on above: Performed By: #### 8 9579-7, 85692-5, 5643-2, 95916-0, LIVR, 3040-3, CBCA, BMP #### [facility] ([id number]) [address] [place] [address] 40692 Eosinophils/100 WBC (Bld) 0.5 % Normal [facility] Comment on above: Performed By: #### 8 9579-7, 91707-8, 5643-2, 65185-4, LIVR, 3040-3, CBCA, BMP #### [facility] ([id number]) [address] [place] [address] 07291 Erythrocyte distribution width (RBC) [Ratio] 13.5 % Normal 11.5-15.0 [facility] Comment on above: Performed By: #### 8 9579-7, 78112-0, 5643-2, 38441-4, LIVR, 3040-3, CBCA, BMP #### [facility] ([id number]) [address] [place] [address] 13282 Hematocrit (Bld) [Volume fraction] 48.7 % High 35-47 [facility] Comment on above: Performed By: #### 8 9579-7, 88651-3, 5643-2, 12410-9, LIVR, 3040-3, CBCA, BMP #### [facility] ([id number]) [address] [place] [address] 45443 Hemoglobin (Bld) [Mass/Vol] 16.5 g/dL High 11.7-15.5 [facility] Comment on above: Performed By: #### 8 9579-7, 12108-7, 5643-2, 93695-2, LIVR, 3040-3, CBCA, BMP #### [facility] ([id number]) [address] [place] [address] 75397 Lymphocytes (Bld) [#/Vol] 2.0 10*3/uL Normal 1.0-3.5 [facility] Comment on above: Performed By: #### 8 9579-7, 38794-4, 5643-2, 66864-6, LIVR, 3040-3, CBCA, BMP #### [facility] ([id number]) [address] [place] [address] 51265 Lymphocytes/100 WBC (Bld) 19.0 % Normal [facility] Comment on above: Performed By: #### 8 9579-7, 20806-0, 5643-2, 17790-6, LIVR, 3040-3, CBCA, BMP #### [facility] ([id number]) [address] [place] [address] 53843 MCH (RBC) [Entitic mass] 33.5 pg Normal 27-34 [facility] Comment on above: Performed By: #### 8 9579-7, 86108-4, 5643-2, 64372-9, LIVR, 3040-3, CBCA, BMP #### [facility] ([id number]) [address] [place] [address] 27753 MCHC (RBC) [Mass/Vol] 33.9 g/dL Normal 32-36 [facility] Comment on above: Performed By: #### 8 9579-7, 37741-6, 5643-2, 42178-9, LIVR, 3040-3, CBCA, BMP #### [facility] ([id number]) [address] [place] [address] 33082 MCV (RBC) [Entitic vol] 99 fL Normal 80-100 [facility] Comment on above: Performed By: #### 8 9579-7, 56583-7, 5643-2, 05062-3, LIVR, 3040-3, CBCA, BMP #### [facility] ([id number]) [address] [place] [address] 19839 Monocytes (Bld) [#/Vol] 0.8 10*3/uL Normal 0-0.9 [facility] Comment on above: Performed By: #### 8 9579-7, 57715-1, 5643-2, 02270-6, LIVR, 3040-3, CBCA, BMP #### [facility] ([id number]) [address] [place] [address] 69587 Monocytes/100 WBC (Bld) 7.4 % Normal [facility] Comment on above: Performed By: #### 8 9579-7, 49937-2, 5643-2, 44234-1, LIVR, 3040-3, CBCA, BMP #### [facility] ([id number]) [address] [place] [address] 71641 Neutrophils/100 WBC (Bld) 72.3 % Normal [facility] Comment on above: Performed By: #### 8 9579-7, 39375-5, 5643-2, 72718-1, LIVR, 3040-3, CBCA, BMP #### [facility] ([id number]) [address] [place] [address] 09347 Platelet mean volume (Bld) [Entitic vol] 8.1 fL Normal 7-12 [facility] Comment on above: Performed By: #### 8 9579-7, 77351-4, 5643-2, 58471-3, LIVR, 3040-3, CBCA, BMP #### [facility] ([id number]) [address] [place] [address] 60724 Platelets (Bld) [#/Vol] 304 10*3/uL Normal 150-450 [facility] Comment on above: Performed By: #### 8 9579-7, 31445-2, 5643-2, 77165-1, LIVR, 3040-3, CBCA, BMP #### [facility] ([id number]) [address] [place] [address] 95601 RBC COUNT 4.92 X10E12/L Normal 3.80-5.20 [facility] Comment on above: Performed By: #### 8 9579-7, 26722-7, 5643-2, 82222-9, LIVR, 3040-3, CBCA, BMP #### [facility] ([id number]) [address] [place] [address] 27306 WBC (Bld) [#/Vol] 10.7 10*3/uL Normal 4.0-11.0 [facility] Comment on above: Performed By: #### 8 9579-7, 86012-3, 5643-2, 88156-4, LIVR, 3040-3, CBCA, BMP #### [facility] ([id number]) [address] [place] [address] 23040 COMPREHENSIVE METABOLIC PANE Nimesh 03-18-2024 Albumin [Mass/Vol] 4.7 g/dL Normal 3.2-5.3 [facility] Comment on above: Performed By: #### 8 9579-7, 04161-2, 5643-2, 91168-3, LIVR, 3040-3, CBCA, BMP #### [facility] ([id number]) [address] [place] [address] 12189 ALP [Catalytic activity/Vol] 153 U/L High 39-130 [facility] Comment on above: Performed By: #### 8 9579-7, 04113-2, 5643-2, 42215-7, LIVR, 3040-3, CBCA, BMP #### [facility] ([id number]) [address] [place] [address] 61263 ALT [Catalytic activity/Vol] 18 U/L Normal 0-31 [facility] Comment on above: Performed By: #### 8 9579-7, 31847-8, 5643-2, 39251-2, LIVR, 3040-3, CBCA, BMP #### [facility] ([id number]) [address] [place] [address] 66612 Anion gap [Moles/Vol] 9 mmol/L Normal 5-15 [facility] Comment on above: Performed By: #### 8 9579-7, 36916-1, 5643-2, 19974-8, LIVR, 3040-3, CBCA, BMP #### [facility] ([id number]) [address] [place] [address] 90294 AST [Catalytic activity/Vol] 26 U/L Normal 0-41 [facility] Comment on above: Performed By: #### 8 9579-7, 78948-3, 5643-2, 11994-2, LIVR, 3040-3, CBCA, BMP #### [facility] ([id number]) [address] [place] [address] 96294 Bilirubin [Mass/Vol] 0.8 mg/dL Normal 0.3-1.2 [facility] Comment on above: Performed By: #### 8 9579-7, 88155-0, 5643-2, 87013-9, LIVR, 3040-3, CBCA, BMP #### [facility] ([id number]) [address] [place] [address] 63561 Calcium [Mass/Vol] 10.9 mg/dL High 8.5-10.5 [facility] Comment on above: Performed By: #### 8 9579-7, 59691-8, 5643-2, 48681-6, LIVR, 3040-3, CBCA, BMP #### [facility] ([id number]) [address] [place] [address] 62117 Chloride [Moles/Vol] 104 mmol/L Normal 98-109 [facility] Comment on above: Performed By: #### 8 9579-7, 43611-9, 5643-2, 96584-8, LIVR, 3040-3, CBCA, BMP #### [facility] ([id number]) [address] [place] [address] 99294 CO2 [Moles/Vol] 27 mmol/L Normal 22-32 [facility] Comment on above: Performed By: #### 8 9579-7, 82960-4, 5643-2, 65696-6, LIVR, 3040-3, CBCA, BMP #### [facility] ([id number]) [address] [place] [address] 71781 Creatinine [Mass/Vol] 0.78 mg/dL Normal 0.40-1.00 [facility] Comment on above: Result Comment: METH OD TRACEABLE TO IDMS STANDARD Performed By: #### 8 9579-7, 89071-9, 5643-2, 72690-7, LIVR, 3040-3, CBCA, BMP #### [facility] ([id number]) [address] [place] [address] 27075 eGFR (CKD-EPI) NON-RACE DEPENDENT >90 Normal >59 [facility] Comment on above: Result Comment: Reported eGFR is based on the CKD-EPI 2020 equation that does not use a race coefficient. Performed By: #### 8 9579-7, 92548-3, 5643-2, 40755-3, LIVR, 3040-3, CBCA, BMP #### [facility] ([id number]) [address] [place] [address] 03554 Glucose [Mass/Vol] 103 mg/dL High 65-99 [facility] Comment on above: Performed By: #### 8 9579-7, 98937-3, 5643-2, 07124-3, LIVR, 3040-3, CBCA, BMP #### [facility] ([id number]) [address] [place] [address] 71311 Potassium [Moles/Vol] 4.5 mmol/L Normal 3.5-5.0 [facility] Comment on above: Performed By: #### 8 9579-7, 34960-9, 5643-2, 54918-1, LIVR, 3040-3, CBCA, BMP #### [facility] ([id number]) [address] [place] [address] 35659 Protein [Mass/Vol] 8.2 g/dL High 6.0-8.0 [facility] Comment on above: Performed By: #### 8 9579-7, 69772-7, 5643-2, 56830-0, LIVR, 3040-3, CBCA, BMP #### [facility] ([id number]) [address] [place] [address] 55776 Sodium [Moles/Vol] 140 mmol/L Normal 134-146 [facility] Comment on above: Performed By: #### 8 9579-7, 28916-6, 5643-2, 59436-6, LIVR, 3040-3, CBCA, BMP #### [facility] ([id number]) [address] [place] [address] 65457 Urea nitrogen [Mass/Vol] 11 mg/dL Normal 5-23 [facility] Comment on above: Performed By: #### 8 9579-7, 26653-1, 5643-2, 24521-9, LIVR, 3040-3, CBCA, BMP #### [facility] ([id number]) [address] [place] [address] ABDOMEN AND PELVIS W CONT on [...] Cano MD on 03/18/2024 3:38 PM Normal [facility] LIPASEon 03-18-2024 Lipase [Catalytic activity/Vol] 73 U/L High 17-40 [facility] Comment on above: Performed By: #### 8 9579-7, 54698-3, 5643-2, 74396-8, LIVR, 3040-3, CBCA, BMP #### [facility] ([id number]) [address] [place] [address] 97720 UPPER EUSon 01-19-2024 [facility] Patient Name: Chioma Rainey Procedure Date: 01/19/2024 9:15 AM Date of : 1970 Admit Type: Outpatient Age: 53 Room: EUS Proc Room 01 Gender: Female Note Status: Finalized Attending MD: Sabrina Dee MD, MPH, [id number] Procedure: Upper EUS Indications: Celiac plexus block [...] o (more content not included)... LAB, [facility] Radiology Study observation (narrative) [facility] CBC AND AUTO DIFFon 01-14-20 24 ABSOLUTE BASOPHIL 0.1 X10E9/L Normal 0.0-0.2 [facility] Comment on above: Performed By: #### 8 9579-7, 24661-6, 5643-2, 19617-4, LIVR, 3040-3, CBCA, BMP #### [facility] ([id number]) [address] [place] [address] 35876 ABSOLUTE NEUTROPHIL 6.8 X10E9/L High 1.5-6.6 [facility] Comment on above: Performed By: #### 8 9579-7, 69655-1, 5643-2, 58329-9, LIVR, 3040-3, CBCA, BMP #### [facility] ([id number]) [address] [place] [address] 19278 Basophils/100 WBC (Bld) 0.8 % Normal [facility] Comment on above: Performed By: #### 8 9579-7, 61511-3, 5643-2, 58166-5, LIVR, 3040-3, CBCA, BMP #### [facility] ([id number]) [address] [place] [address] 74108 Eosinophils (Bld) [#/Vol] 0.1 10*3/uL Normal 0.0-0.4 [facility] Comment on above: Performed By: #### 8 9579-7, 05507-9, 5643-2, 49175-1, LIVR, 3040-3, CBCA, BMP #### [facility] ([id number]) [address] [place] [address] 28371 Eosinophils/100 WBC (Bld) 1.2 % Normal [facility] Comment on above: Performed By: #### 8 9579-7, 40499-1, 5643-2, 59469-4, LIVR, 3040-3, CBCA, BMP #### [facility] ([id number]) [address] [place] [address] 48551 Erythrocyte distribution width (RBC) [Ratio] 12.9 % Normal 11.5-15.0 [facility] Comment on above: Performed By: #### 8 9579-7, 21535-9, 5643-2, 78873-5, LIVR, 3040-3, CBCA, BMP #### [facility] ([id number]) [address] [place] [address] 00397 Hematocrit (Bld) [Volume fraction] 42.2 % Normal 35-47 [facility] Comment on above: Performed By: #### 8 9579-7, 50473-1, 5643-2, 07021-6, LIVR, 3040-3, CBCA, BMP #### [facility] ([id number]) [address] [place] [address] 61067 Hemoglobin (Bld) [Mass/Vol] 14.5 g/dL Normal 11.7-15.5 [facility] Comment on above: Performed By: #### 8 9579-7, 55865-5, 5643-2, 61145-7, LIVR, 3040-3, CBCA, BMP #### [facility] ([id number]) [address] [place] [address] 24756 Lymphocytes (Bld) [#/Vol] 2.8 10*3/uL Normal 1.0-3.5 [facility] Comment on above: Performed By: #### 8 9579-7, 07122-1, 5643-2, 36993-3, LIVR, 3040-3, CBCA, BMP #### [facility] ([id number]) [address] [place] [address] 19112 Lymphocytes/100 WBC (Bld) 26.2 % Normal [facility] Comment on above: Performed By: #### 8 9579-7, 99213-1, 5643-2, 81525-4, LIVR, 3040-3, CBCA, BMP #### [facility] ([id number]) [address] [place] [address] 90232 MCH (RBC) [Entitic mass] 33.8 pg Normal 27-34 [facility] Comment on above: Performed By: #### 8 9579-7, 62639-7, 5643-2, 63286-4, LIVR, 3040-3, CBCA, BMP #### [facility] ([id number]) [address] [place] [address] 95649 MCHC (RBC) [Mass/Vol] 34.3 g/dL Normal 32-36 [facility] Comment on above: Performed By: #### 8 9579-7, 59140-7, 5643-2, 18169-3, LIVR, 3040-3, CBCA, BMP #### [facility] ([id number]) [address] [place] [address] 10270 MCV (RBC) [Entitic vol] 98 fL Normal 80-100 [facility] Comment on above: Performed By: #### 8 9579-7, 43796-3, 5643-2, 85378-2, LIVR, 3040-3, CBCA, BMP #### [facility] ([id number]) [address] [place] [address] 10596 Monocytes (Bld) [#/Vol] 0.9 10*3/uL Normal 0-0.9 [facility] Comment on above: Performed By: #### 8 9579-7, 04752-6, 5643-2, 93538-7, LIVR, 3040-3, CBCA, BMP #### [facility] ([id number]) [address] [place] [address] 87340 Monocytes/100 WBC (Bld) 8.2 % Normal [facility] Comment on above: Performed By: #### 8 9579-7, 07592-5, 5643-2, 03423-7, LIVR, 3040-3, CBCA, BMP #### [facility] ([id number]) [address] [place] [address] 64906 Neutrophils/100 WBC (Bld) 63.6 % Normal [facility] Comment on above: Performed By: #### 8 9579-7, 09448-3, 5643-2, 37005-7, LIVR, 3040-3, CBCA, BMP #### [facility] ([id number]) [address] [place] [address] 28880 Platelet mean volume (Bld) [Entitic vol] 8.2 fL Normal 7-12 [facility] Comment on above: Performed By: #### 8 9579-7, 81350-7, 5643-2, 91283-3, LIVR, 3040-3, CBCA, BMP #### [facility] ([id number]) [address] [place] [address] Platelets (Bld) [#/Vol] 259 10*3/uL Normal 150-450 [facility] Comment on above: Performed By: #### 8 9579-7, 98737-1, 5643-2, 80670-6, LIVR, 3040-3, CBCA, BMP #### [facility] ([id number]) [address] [place] [address] 31130 RBC COUNT 4.29 X10E12/L Normal 3.80-5.20 [facility] Comment on above: Performed By: #### 8 9579-7, 52438-7, 5643-2, 91977-8, LIVR, 3040-3, CBCA, BMP #### [facility] ([id number]) [address] [place] [address] 10137 WBC (Bld) [#/Vol] 10.7 10*3/uL Normal 4.0-11.0 [facility] Comment on above: Performed By: #### 8 9579-7, 32764-5, 5643-2, 05096-3, LIVR, 3040-3, CBCA, BMP #### [facility] ([id number]) [address] [place] [address] 98682 COMPREHENSIVE METABOLIC PANE [facility] 01-14-2024 Albumin [Mass/Vol] 4.2 g/dL Normal 3.2-5.3 [facility] Comment on above: Performed By: #### 8 9579-7, 50678-8, 5643-2, 10206-2, LIVR, 3040-3, CBCA, BMP #### [facility] ([id number]) [address] [place] [address] 24593 ALP [Catalytic activity/Vol] 136 U/L High 39-130 [facility] Comment on above: Performed By: #### 8 9579-7, 72594-1, 5643-2, 36149-8, LIVR, 3040-3, CBCA, BMP #### [facility] ([id number]) [address] [place] [address] 17972 ALT [Catalytic activity/Vol] 18 U/L Normal 0-31 [facility] Comment on above: Performed By: #### 8 9579-7, 11824-8, 5643-2, 65320-4, LIVR, 3040-3, CBCA, BMP #### [facility] ([id number]) [address] [place] [address] 42699 Anion gap [Moles/Vol] 10 mmol/L Normal 5-15 [facility] Comment on above: Performed By: #### 8 9579-7, 27979-1, 5643-2, 82699-1, LIVR, 3040-3, CBCA, BMP #### [facility] ([id number]) [address] [place] [address] 83444 AST [Catalytic activity/Vol] 21 U/L Normal 0-41 [facility] Comment on above: Performed By: #### 8 9579-7, 69423-1, 5643-2, 93483-1, LIVR, 3040-3, CBCA, BMP #### [facility] ([id number]) [address] [place] [address] 56821 Bilirubin [Mass/Vol] 0.5 mg/dL Normal 0.3-1.2 [facility] Comment on above: Performed By: #### 8 9579-7, 97207-4, 5643-2, 14302-9, LIVR, 3040-3, CBCA, BMP #### [facility] ([id number]) [address] [place] [address] 14964 Calcium [Mass/Vol] 9.6 mg/dL Normal 8.5-10.5 [facility] Comment on above: Performed By: #### 8 9579-7, 94738-5, 5643-2, 01845-2, LIVR, 3040-3, CBCA, BMP #### [facility] ([id number]) [address] [place] [address] 18622 Chloride [Moles/Vol] 105 mmol/L Normal 98-109 [facility] Comment on above: Performed By: #### 8 9579-7, 51201-7, 5643-2, 91043-1, LIVR, 3040-3, CBCA, BMP #### [facility] ([id number]) [address] [place] [address] 16398 CO2 [Moles/Vol] 22 mmol/L Normal 22-32 [facility] Comment on above: Performed By: #### 8 9579-7, 72211-2, 5643-2, 59562-5, LIVR, 3040-3, CBCA, BMP #### [facility] ([id number]) [address] [place] [address] 56069 Creatinine [Mass/Vol] 0.74 mg/dL Normal 0.40-1.00 [facility] Comment on above: Result Comment: METH OD TRACEABLE TO IDMS STANDARD Performed By: #### 8 9579-7, 63066-4, 5643-2, 00886-9, LIVR, 3040-3, CBCA, BMP #### [facility] ([id number]) [address] [place] [address] 65725 eGFR (CKD-EPI) NON-RACE DEPENDENT >90 Normal >59 [facility] Comment on above: Result Comment: Reported eGFR is based on the CKD-EPI 2020 equation that does not use a race coefficient. Performed By: #### 8 9579-7, 67849-0, 5643-2, 93907-9, LIVR, 3040-3, CBCA, BMP #### [facility] ([id number]) [address] [place] [address] 33952 Glucose [Mass/Vol] 93 mg/dL Normal 65-99 [facility] Comment on above: Performed By: #### 8 9579-7, 22774-6, 5643-2, 96054-6, LIVR, 3040-3, CBCA, BMP #### [facility] ([id number]) [address] [place] [address] 26697 Potassium [Moles/Vol] 3.6 mmol/L Normal 3.5-5.0 [facility] Comment on above: Performed By: #### 8 9579-7, 75021-5, 5643-2, 81190-4, LIVR, 3040-3, CBCA, BMP #### [facility] ([id number]) [address] [place] [address] 41061 Protein [Mass/Vol] 7.3 g/dL Normal 6.0-8.0 [facility] Comment on above: Performed By: #### 8 9579-7, 66755-2, 5643-2, 22189-9, LIVR, 3040-3, CBCA, BMP #### [facility] ([id number]) [address] [place] [address] 53215 Sodium [Moles/Vol] 137 mmol/L Normal 134-146 [facility] Comment on above: Performed By: #### 8 9579-7, 12053-1, 5643-2, 11318-9, LIVR, 3040-3, CBCA, BMP #### [facility] ([id number]) [address] [place] [address] 10354 Urea nitrogen [Mass/Vol] 7 mg/dL Normal 5-23 [facility] Comment on above: Performed By: #### 8 9579-7, 69486-8, 5643-2, 93518-5, LIVR, 3040-3, CBCA, BMP #### [facility] ([id number]) [address] [place] [address] CT ABDOMEN AND PELVIS W CONT on [...] Rodgers MD on 01/14/2024 5:01 PM Normal [facility] LIPASEon 01-14-2024 Lipase [Catalytic activity/Vol] 72 U/L High 17-40 [facility] Comment on above: Performed By: #### 8 9579-7, 23683-4, 5643-2, 58985-8, LIVR, 3040-3, CBCA, BMP #### [facility] ([id number]) [address] [place] [address] MAGNESIUMon 01-14-2024 Magnesium [Mass/Vol] 2.2 mg/dL Normal 1.8-2.6 [facility] Comment on above: Performed By: #### 8 9579-7, 13350-1, 5643-2, 50123-0, LIVR, 3040-3, CBCA, BMP #### [facility] ([id number]) [address] [place] [address] 25764 URN MACROSCOPIC NURon 2023 BILIRUBIN JERE Negative Normal NEG [facility] Comment on above: Performed By: #### 8 9579-7, 31652-8, 5643-2, 54212-0, LIVR, 3040-3, CBCA, BMP #### [facility] ([id number]) [address] [place] [address] 19367 BLOOD/HGB JERE Negative Normal NEG [facility] Comment on above: Performed By: #### 8 9579-7, 85904-7, 5643-2, 25301-9, LIVR, 3040-3, CBCA, BMP #### [facility] ([id number]) [address] [place] [address] 35164 GLUCOSE JERE Negative Normal NEG [facility] Comment on above: Performed By: #### 8 9579-7, 74187-0, 5643-2, 06853-7, LIVR, 3040-3, CBCA, BMP #### [facility] ([id number]) [address] [place] [address] [place] [address] KETONES JERE Negative Normal NEG [facility] Comment on above: Performed By: #### 8 9579-7, 00655-7, 5643-2, 98682-9, LIVR, 3040-3, CBCA, BMP #### [facility] ([id number]) [address] [place] [address] 87355 LEUKOCYTE ESTERASE JERE Negative Normal NEG [facility] Comment on above: Performed By: #### 8 9579-7, 01717-6, 5643-2, 01839-4, LIVR, 3040-3, CBCA, BMP #### [facility] ([id number]) [address] [place] [address] 21312 NITRITE JERE Negative Normal NEG [facility] Comment on above: Performed By: #### 8 9579-7, 57709-0, 5643-2, 72323-1, LIVR, 3040-3, CBCA, BMP #### [facility] ([id number]) [address] [place] [address] 86085 PH JERE 5.5 Normal 5.0-8.5 [facility] Comment on above: Performed By: #### 8 9579-7, 12789-4, 5643-2, 59700-3, LIVR, 3040-3, CBCA, BMP #### [facility] ([id number]) [address] [place] [address] 90257 PROTEIN JERE Negative Normal NEG [facility] Comment on above: Performed By: #### 8 9579-7, 10236-1, 5643-2, 99096-9, LIVR, 3040-3, CBCA, BMP #### [facility] ([id number]) [address] [place] [address] 54567 SPECIFIC GRAVITY JERE >=1.030 Normal 1.003-1 .03 5 [facility] Comment on above: Performed By: #### 8 9579-7, 00244-3, 5643-2, 13489-2, LIVR, 3040-3, CBCA, BMP #### [facility] ([id number]) [address] [place] [address] 10599 UROBILINOGEN JERE 0.2 eu/dL Normal <1.1 [facility] Comment on above: Performed By: #### 8 9579-7, 58315-7, 5643-2, 82826-1, LIVR, 3040-3, CBCA, BMP #### [facility] ([id number]) [address] [place] [address] 00007 CBC with Auto Differentialon 01-07-2024 Basophils (Bld) [#/Vol] 0.09 10*3/uL [facility] Basophils/100 WBC (Bld) 1 % 0 - 2 % [facility] Eosinophils (Bld) [#/Vol] 0.10 10*3/uL [facility] Eosinophils/100 WBC (Bld) 1 % 1 - 4 % [facility] Erythrocyte distribution width (RBC) [Ratio] 12.2 % 11.8 - 14.4 % [facility] Hematocrit (Bld) [Volume fraction] 46.3 % 36.3 - 47.1 % [facility] Hemoglobin (Bld) [Mass/Vol] 15.9 g/dL High 11.9 - 15.1 g/dL [facility] Immature granulocytes (Bld) [#/Vol] [facility] Immature granulocytes/100 WBC (Bld) 0 % 0 [facility] Interpretation and review of laboratory results Abnormal [facility] Lymphocytes/100 WBC (Bld) 28 % 24 - 43 % [facility] Lymphocytes/100 WBC (Bld) 2.73 % [facility] MCH (RBC) [Entitic mass] 33.8 pg High 25.2 - 33.5 pg [facility] MCHC (RBC) [Mass/Vol] 34.3 g/dL 28.4 - 34.8 g/dL [facility] MCV (RBC) [Entitic vol] 98.3 fL 82.6 - 102.9 fL [facility] Monocytes/100 WBC (Bld) 9 % 3 - 12 % [facility] Monocytes/100 WBC (Bld) 0.88 % [facility] Neutrophils/100 WBC (Bld) 61 % 36 - 65 % [facility] Nucleated RBC/100 WBC (Bld) [Ratio] 0.0 % 0.0 per 100 WBC [facility] Platelet mean volume (Bld) [Entitic vol] 9.7 fL 8.1 - 13.5 fL [facility] Platelets (Bld) [#/Vol] 277 10*3/uL [facility] RBC (Bld) [#/Vol] 4.71 10*6/uL 3.95 - 5.11 m/uL [facility] Segmented neutrophils/100 WBC (Bld) 6.06 % [facility] WBC other (Bld) [#/Vol] 9.9 [facility] CBC with Diffon 01-07-2024 Abs. Basophil 0.09 k/uL Normal 0.00-0.20 [facility] Comment on above: Performed By: #### L IP, CDP, CP #### [facility] [address] [place] [address] [employer]er: Ion Jasso MD Abs.Imm.Granulocyte <0.03 Normal 0.00-0.30 [facility] Comment on above: Performed By: #### L IP, CDP, CP #### [facility] [address] [place] [address] [employer]er: Ion Jasso MD Abs.Neutrophil (Seg) 6.06 k/uL Normal 1.50-8.10 [facility] Comment on above: Performed By: #### L IP, CDP, CP #### [address] [place], [place] [address] [employer]er: Ion Jasso MD Basophils/100 WBC (Bld) 1 % Normal 0-2 [facility] Comment on above: Performed By: #### L IP, CDP, CP #### [address] [place] [address] [employer]er: Ion Jasso MD Eosinophils (Bld) [#/Vol] 0.10 10*3/uL Normal 0.00-0.44 [facility] Comment on above: Performed By: #### L IP, CDP, CP #### [facility] [address] [place], [place] [address] [employer]er: Ion Jasso MD Eosinophils/100 WBC (Bld) 1 % Normal 1-4 [facility] Comment on above: Performed By: #### L IP, CDP, CP #### [facility] [address] [place], [place] [address] [employer]er: Ion Jasso MD Erythrocyte distribution width (RBC) [Ratio] 12.2 % Normal 11.8-14.4 [facility] Comment on above: Performed By: #### L IP, CDP, CP #### [address] [place], [facility]83 [employer]: Ion Jasso MD Hematocrit (Bld) [Volume fraction] 46.3 % Normal 36.3-47.1 [facility] Comment on above: Performed By: #### L IP, CDP, CP #### [address] [place], [facility]83 [employer]er: Ion Jasso MD Hemoglobin (Bld) [Mass/Vol] 15.9 g/dL High 11.9-15.1 [facility] Comment on above: Performed By: #### L IP, CDP, CP #### [address] [place], [facility] [employer]er: Ion Jasso MD Immature granulocytes/100 WBC (Bld) 0 % Normal 0 [facility] Comment on above: Performed By: #### L IP, CDP, CP #### [address] [place], [facility]83 [employer]er: Ion Jasso MD Lymphocytes (Bld) [#/Vol] 2.73 10*3/uL Normal 1.10-3.70 [facility] Comment on above: Performed By: #### L IP, CDP, CP #### [address] [place], [facility]83 [employer]er: Ion Jasso MD Lymphocytes/100 WBC (Bld) 28 % Normal 24-43 [facility] Comment on above: Performed By: #### L IP, CDP, CP #### [address] [place], [facility]83 [employer]er: Ion Jasso MD MCH (RBC) [Entitic mass] 33.8 pg High 25.2-33.5 [facility] Comment on above: Performed By: #### L IP, CDP, CP #### [address] [place], [facility]83 [employer]er: Ion Jasso MD MCHC (RBC) [Mass/Vol] 34.3 g/dL Normal 28.4-34.8 [facility] Comment on above: Performed By: #### L IP, CDP, CP #### [address] [place], [place] [address] [employer]er: Ion Jasso MD MCV (RBC) [Entitic vol] 98.3 fL Normal 82.6-102.9 [facility] Comment on above: Performed By: #### L IP, CDP, CP #### [address] [place], [facility]83 [employer]er: Ion Jasso MD Monocytes (Bld) [#/Vol] 0.88 10*3/uL Normal 0.10-1.20 [facility] Comment on above: Performed By: #### L IP, CDP, CP #### [address] [place], [facility]83 [employer]er: Ion Jasso MD Monocytes/100 WBC (Bld) 9 % Normal 3-12 [facility] Comment on above: Performed By: #### L IP, CDP, CP #### [address] [place], [facility]83 [employer]er: Ion Jasso MD Neutrophil (Seg) 61 % Normal 36-65 [facility] Comment on above: Performed By: #### L IP, CDP, CP #### [address] [place], [facility]83 [employer]er: Ion Jasso MD NRBC Automated 0.0 per 100 WBC Normal 0.0 [facility] Comment on above: Performed By: #### L IP, CDP, CP #### [address] [place], [place] [address]83 [employer]er: Ion Jasso MD Platelet mean volume (Bld) [Entitic vol] 9.7 fL Normal 8.1-13.5 [facility] Comment on above: Performed By: #### L IP, CDP, CP #### [address] [place], [place] [address]83 [employer]er: Ion Jasso MD Platelets (Bld) [#/Vol] 277 10*3/uL Normal 138-453 [facility] Comment on above: Performed By: #### L IP, CDP, CP #### [address] [place], [place] [address]283 [employer]er: Ion Jasso MD RBC (Bld) [#/Vol] 4.71 10*6/uL Normal 3.95-5.11 [facility] Comment on above: Performed By: #### L IP, CDP, CP #### [address] [place], [place] [address]57183 [employer]er: Ion Jasso MD WBC (Bld) [#/Vol] 9.9 10*3/uL Normal 3.5-11.3 [facility] Comment on above: Performed By: #### L IP, CDP, CP #### [address] [place], [place] [address]83 [employer]er: Ion Jasso MD Comp Metabolic Profon 2023 Albumin [Mass/Vol] 4.3 g/dL Normal 3.5-5.2 [facility] Comment on above: Performed By: #### L IP, CDP, CP #### [address] [place] [address] [employer]: Ion Jasso MD Albumin/Glob Ratio 1.6 Normal 1.0-2.5 [facility] Comment on above: Performed By: #### L IP, CDP, CP #### [facility] [address] [place] [address] [employer]er: Ion Jasso MD Alkaline Phos 145 U/L High 35-104 [facility] Comment on above: Performed By: #### L IP, CDP, CP #### [facility] [address] [place] [address] [employer]er: Ion Jasso MD ALT [Catalytic activity/Vol] 11 U/L Normal 10-35 [facility] Comment on above: Performed By: #### L IP, CDP, CP #### [facility] [address] [place] [address] [employer]er: Ion Jasso MD Anion gap [Moles/Vol] 12 mmol/L Normal 9-16 [facility] Comment on above: Performed By: #### L IP, CDP, CP #### [facility] [address] [place] [address] [employer]er: Ion Jasso MD AST [Catalytic activity/Vol] 25 U/L Normal 10-35 [facility] Comment on above: Result Comment: Spec imen hemolysis has exceeded the interference as defined by Joycelyn. Value may be falsely increased. Suggest recollection if clinically indicated. Performed By: #### L IP, CDP, CP #### [facility] [address] [place] [address] [employer]er: Ion Jasso MD Bilirubin [Mass/Vol] mg/dL Normal 0.00-1.20 [facility] Comment on above: Performed By: #### L IP, CDP, CP #### [facility] [address] [place] [address] [employer]er: Ion Jasso MD BUN/CRE Ratio 9 Normal 9-20 [facility] Comment on above: Performed By: #### L IP, CDP, CP #### [facility] [address] [place], [place] [address] [employer]er: Ion Jasso MD Calcium [Mass/Vol] 9.8 mg/dL Normal 8.6-10.4 [facility] Comment on above: Performed By: #### L IP, CDP, CP #### [facility] [address] [place], [place] [address]383 [employer]er: Ion Jasso MD Chloride [Moles/Vol] 103 mmol/L Normal 98-107 [facility] Comment on above: Performed By: #### L IP, CDP, CP #### [facility] [address] [place], [place] [address] [employer]er: Ion Jasso MD CO2 [Moles/Vol] 22 mmol/L Normal 20-31 [facility] Comment on above: Performed By: #### L IP CDP, CP #### [facility] [address] [place] [address] Dr[place], [place] [address]83 [employer]er: Ion Jasso MD Creatinine [Mass/Vol] 0.8 mg/dL Normal 0.50-0.90 [facility] Comment on above: Performed By: #### L IP CDP, CP #### [facility] [address] [place] [address] [employer]er: Ion Jasso MD GFR/1.73 sq M.predicted among [...] By: #### L WALTER ROONEY, CP #### [facility] [address] [place] [address] [place] [address] [employer]er: Ion Jasso MD Glucose [Mass/Vol] 96 mg/dL Normal 74-99 [facility] Comment on above: Performed By: #### L IP, CDP, CP #### [facility] [address] [place], [place] [address] [employer]er: Ion Jasso MD Potassium [Moles/Vol] 4.6 mmol/L Normal 3.7-5.3 [facility] Comment on above: Result Comment: Spec imen hemolysis has exceeded the interference as defined by Joycelyn. Value may be falsely increased. Suggest recollection if clinically indicated. Performed By: #### L TORIBIO CDP, CP #### [address] [place], [place] [address]83 [employer]er: Ion Jasso MD Protein [Mass/Vol] 7.0 g/dL Normal 6.6-8.7 [facility] Comment on above: Performed By: #### L WALTER ROONEY, CP #### [address] [place] [address] [employer]er: Ion Jasso MD Sodium [Moles/Vol] 137 mmol/L Normal 136-145 [facility] Comment on above: Performed By: #### L IP CDP, CP #### [facility] [address] [place] [address] [place], [place] [address] [employer]er: Ion Jasso MD Urea nitrogen [Mass/Vol] 7 mg/dL Normal 6-20 [facility] Comment on above: Performed By: #### L IP, CDP, CP #### [facility] [address] [place] [address] [employer]er: Ion Jasso MD Comprehensive Metabolic Pane [facility] 01-07-2024 Albumin [Mass/Vol] 4.3 g/dL 3.5 - 5.2 g/dL [facility] Albumin/Globulin [Mass ratio] 1.6 {ratio} 1.0 - 2.5 [facility] ALP [Catalytic activity/Vol] 145 U/L High 35 - 104 U/L [facility] ALT [Catalytic activity/Vol] 11 U/L 10 - 35 U/L [facility] Anion gap [Moles/Vol] 12 mmol/L 9 - 16 mmol/L [facility] AST [Catalytic activity/Vol] 25 U/L 10 - 35 U/L [facility] Comment on above: Specimen hemolysis h as exceeded the interference as defined by Joycelyn. Value may be falsely increased. Suggest recollection if clinically indicated. Bilirubin [Mass/Vol] mg/dL 0.00 - 1.20 mg/dL [facility] Calcium [Mass/Vol] 9.8 mg/dL 8.6 - 10. 4 mg/dL [facility] Chloride [Moles/Vol] 103 mmol/L 98 - 10 7 mmol/L [facility] CO2 [Moles/Vol] 22 mmol/L 20 - 31 mmol/L [facility] Creatinine [Mass/Vol] 0.8 mg/dL 0.50 - 0.90 mg/dL [facility] Est, Glomarina Reyest Rate - PINF [facility] Comment on above: These [...] [Mass/Vol] 96 mg/dL 74 - 99 mg/dL [facility] Potassium [Moles/Vol] 4.6 mmol/L 3.7 - 5.3 mmol/L [facility] Comment on above: Specimen hemolysis h as exceeded the interference as defined by Joycelyn. Value may be falsely increased. Suggest recollection if clinically indicated. Protein [Mass/Vol] 7.0 g/dL 6.6 - 8.7 g/dL [facility] Sodium [Moles/Vol] 137 mmol/L 136 - 145 mmol/L [facility] Urea nitrogen [Mass/Vol] 7 mg/dL 6 - 20 mg/dL [facility] Urea nitrogen/Creatinine [Mass ratio] 9 mg/mg 9 - 20 [facility] Lactic Acidon 01-07-2024 Lactate (BldV) [Moles/Vol] 1.3 mmol/L 0.5 - 2.2 mmol/L [facility] Lactate [Moles/Vol] 1.3 mmol/L Normal 0.5-2.2 [facility] Comment on above: Performed By: #### B MP, LIVP, LIP #### [facility] [address] [place] [address] [employer]er: Ion Jasso MD Lipaseon 01-07-2024 Lipase [Catalytic activity/Vol] 144 U/L High 13 - 60 U/L [facility] Lipase [Catalytic activity/Vol] 144 U/L High 13-60 [facility] Comment on above: Performed By: #### L WALTER ROONEY, CP #### [facility] [address] [place] [address] [employer] Installer: Ion Jasso MD No Panel Informationon 01-06 Interpretation and review of laboratory results Abnormal [facility] Urinalysis w/ Microon 2023 Bilirubin, SemiQt,Ur Negative Normal NEG [facility] Comment on above: Performed By: #### L WALTER ROONEY, CP #### [facility] [address] [place] [address] [employer] Installer: Ion Jasso MD Blood, Urine Negative Normal NEG [facility] Comment on above: Performed By: #### L WALTER ROONEY, CP #### [facility] [address] [place] [address] [employer]er: Ion Jasso MD Clarity (U) Clear Normal CLEAR [facility] Comment on above: Performed By: #### L IP, CDP, CP #### [facility] [address] [place], [place] [address] [employer]er: Ion Jasso MD Color (U) Yellow Normal YEL [facility] Comment on above: Performed By: #### L IP, CDP, CP #### [facility] [address] Dr. [place], [place] 9348083 [employer] Installer: Ion Jasso MD Epithelial cells LM Ql (Urine sed) 0 TO 2 Normal 0-25 [facility] Comment on above: Performed By: #### L IP, CDP, CP #### [facility] [address] [place], [place] 96[address]3 [employer] Installer: Ion Jasso MD Glucose Ql (U) Negative Normal NEG [facility] in Hospital Comment on above: Performed By: #### L IP, CDP, CP #### [facility] [address] [place] [address] [address] [place], [place] [id number] [employer] Installer: Ion Jasso MD Ketones Ql (U) Negative Normal NEG [facility] in [facility] Comment on above: Performed By: #### L IP, CDP, CP #### [facility] [address] [place], [place] 8[address]83 [employer] Installer: Ion Jasso MD Leukocyte esterase Test strip Ql (U) Negative Normal NEG [facility] Comment on above: Performed By: #### L IP, CDP, CP #### [facility] [address] [place], [place] 1182883 [employer] Installer: Ion Jasso MD Nitrite,Ur Negative Normal NEG [facility] Comment on above: Performed By: #### L IP, CDP, CP #### [facility] [address] [place], [place] 1685583 [employer] Installer: Ion Jasso MD PH,Ur 6.0 Normal 5.0-9.0 [facility] Comment on above: Performed By: #### L IP, CDP, CP #### [facility] [address] [place] [address] [address] [place], [place] 9460683 [employer] Installer: Ion Jasso MD Protein Ql (U) Negative Normal NEG [facility] Comment on above: Performed By: #### L IP, CDP, CP #### [facility] [address] [place] [address] [address]. [place], [place] 6168983 [employer] Installer: Ion Jasso MD Spec. [place],Ur 1.010 Normal 1.010-1.02 0 [facility] Comment on above: Performed By: #### L IP, CDP, CP #### [address] [place], [place] 7767883 [employer] Installer: Ion Jasso MD Urine RBC's None Normal 0-2 [facility] Comment on above: Performed By: #### L IP, CDP, CP #### [address] [place], [place] 7422683 [employer] Installer: Ion Jasso MD Urine WBC's 0 TO 2 Normal 0-5 [facility] Comment on above: Performed By: #### L IP, CDP, CP #### [address] [place] [address] [employer] Installer: Ion Jasso MD Urobilinogen,Ur Normal Normal 0.0-1.0 [facility] Comment on above: Performed By: #### L IP, CDP, CP #### [address] [place], [place] 1106183 [employer] Installer: Ion Jasso MD Urinalysis with Microscopico n 01-07-2024 Bilirubin Ql (U) Negative NEGATIVE [facility] Clarity (U) Clear Clear [facility] Color (U) Yellow Yellow [facility] Epithelial cells LM.HPF (Urine sed) [#/Area] 0 TO 2 [facility] Glucose Test strip (U) [Mass/Vol] Negative NEGATIVE mg/dL [facility] Hemoglobin Auto test strip Ql (U) Negative NEGATIVE [facility] Ketones (U) [Mass/Vol] Negative NEGAT MATTHIAS mg/dL [facility] Leukocyte esterase Test strip Ql (U) Negative NEGATIVE [facility] Nitrite Ql (U) Negative NEGATIVE [facility] pH (U) 6.0 [pH] 5.0 - 9.0 [facility] Protein (U) [Mass/Vol] Negative NEGAT [facility]AS mg/dL [facility] RBC LM.HPF (Urine sed) [#/Area] None [facility] Specific gravity (U) [Rel density] 1.010 1.010 - 1.020 [facility] Urobilinogen Qn (U) Normal 0.0 - 1. 0 EU/dL [facility] WBC LM.HPF (Urine sed) [#/Area] 0 TO 2 [facility] BASIC METABOLIC PANLon 12-28 Anion gap [Moles/Vol] 8 mmol/L Normal 5-15 [facility] Comment on above: Performed By: #### 8 9579-7, 31651-7, 5643-2, 29073-1, LIVR, 3040-3, CBCA, BMP #### [facility] ([id number]) [address] [place] [address] 16747 Calcium [Mass/Vol] 9.7 mg/dL Normal 8.5-10.5 [facility] Comment on above: Performed By: #### 8 9579-7, 11721-1, 5643-2, 11053-2, LIVR, 3040-3, CBCA, BMP #### [facility] ([id number]) [address] [place] [address] 72693 Chloride [Moles/Vol] 106 mmol/L Normal 98-109 [facility] Comment on above: Performed By: #### 8 9579-7, 27767-4, 5643-2, 09975-7, LIVR, 3040-3, CBCA, BMP #### [facility] ([id number]) [address] [place] [address] 89615 CO2 [Moles/Vol] 24 mmol/L Normal 22-32 [facility] Comment on above: Performed By: #### 8 9579-7, 29721-5, 5643-2, 21969-7, LIVR, 3040-3, CBCA, BMP #### [facility] ([id number]) [address] [place] [address] 89786 Creatinine [Mass/Vol] 0.88 mg/dL Normal 0.40-1.00 [facility] Comment on above: Result Comment: METH OD TRACEABLE TO IDMS STANDARD Performed By: #### 8 9579-7, 86580-9, 5643-2, 27164-2, LIVR, 3040-3, CBCA, BMP #### [facility] ([id number]) [address] [place] [address] 36658 GFR/1.73 sq M.predicted among non-blacks MDRD (S/P/Bld) [Vol rate/Area] 78 mL/min/{1.73_m2} Normal >59 [facility] Comment on above: Result Comment: Reported eGFR is based on the CKD-EPI 2020 equation that does not use a race coefficient. Performed By: #### 8 9579-7, 72868-5, 5643-2, 32148-4, LIVR, 3040-3, CBCA, BMP #### [facility] ([id number]) [address] [place] [address] 63003 Glucose [Mass/Vol] 82 mg/dL Normal 65-99 [facility] Comment on above: Performed By: #### 8 9579-7, 70447-0, 5643-2, 40089-3, LIVR, 3040-3, CBCA, BMP #### [facility] ([id number]) [address] [place] [address] 44516 Potassium [Moles/Vol] 4.2 mmol/L Normal 3.5-5.0 [facility] Comment on above: Result Comment: SPEC IMEN HEMOLYZED, RESULTS INCREASED Performed By: #### 8 9579-7, 37037-9, 5643-2, 01440-2, LIVR, 3040-3, CBCA, BMP #### [facility] ([id number]) [address] [place] [address] 57583 Sodium [Moles/Vol] 138 mmol/L Normal 134-146 [facility] Comment on above: Performed By: #### 8 9579-7, 79177-2, 5643-2, 10262-8, LIVR, 3040-3, CBCA, BMP #### [facility] ([id number]) [address] [place] [address] 17666 Urea nitrogen [Mass/Vol] 12 mg/dL Normal 5-23 [facility] Comment on above: Performed By: #### 8 9579-7, 98311-8, 5643-2, 13547-7, LIVR, 3040-3, CBCA, BMP #### [facility] ([id number]) [address] [place] [address] 69087 CBC AND AUTO DIFFon 12-29-19 24 ABSOLUTE BASOPHIL 0.1 X10E9/L Normal 0.0-0.2 [facility] Comment on above: Performed By: #### 8 9579-7, 86744-0, 5643-2, 59255-7, LIVR, 3040-3, CBCA, BMP #### [facility] ([id number]) [address] [place] [address] 05943 ABSOLUTE NEUTROPHIL 3.9 X10E9/L Normal 1.5-6.6 [facility] Comment on above: Performed By: #### 8 9579-7, 03332-9, 5643-2, 22397-6, LIVR, 3040-3, CBCA, BMP #### [facility] ([id number]) [address] [place] [address] 31566 Basophils/100 WBC (Bld) 1.3 % Normal [facility] Comment on above: Performed By: #### 8 9579-7, 91280-2, 5643-2, 80205-2, LIVR, 3040-3, CBCA, BMP #### [facility] ([id number]) [address] [place] [address] 58504 Eosinophils (Bld) [#/Vol] 0.2 10*3/uL Normal 0.0-0.4 [facility] Comment on above: Performed By: #### 8 9579-7, 80590-6, 5643-2, 82103-5, LIVR, 3040-3, CBCA, BMP #### [facility] ([id number]) [address] [place] [address] 48961 Eosinophils/100 WBC (Bld) 2.3 % Normal [facility] Comment on above: Performed By: #### 8 9579-7, 82529-4, 5643-2, 17915-2, LIVR, 3040-3, CBCA, BMP #### [facility] ([id number]) [address] [place] [address] 45972 Erythrocyte distribution width (RBC) [Ratio] 13.2 % Normal 11.5-15.0 [facility] Comment on above: Performed By: #### 8 9579-7, 26761-0, 5643-2, 12801-5, LIVR, 3040-3, CBCA, BMP #### [facility] ([id number]) [address] [place] [address] 29405 Hematocrit (Bld) [Volume fraction] 41.8 % Normal 35-47 [facility] Comment on above: Performed By: #### 8 9579-7, 18218-7, 5643-2, 80986-0, LIVR, 3040-3, CBCA, BMP #### [facility] ([id number]) [address] [place] [address] 57653 Hemoglobin (Bld) [Mass/Vol] 14.3 g/dL Normal 11.7-15.5 [facility] Comment on above: Performed By: #### 8 9579-7, 40129-0, 5643-2, 73961-0, LIVR, 3040-3, CBCA, BMP #### [facility] ([id number]) [address] [place] [address] 08705 Lymphocytes (Bld) [#/Vol] 2.5 10*3/uL Normal 1.0-3.5 [facility] Comment on above: Performed By: #### 8 9579-7, 20790-0, 5643-2, 23747-3, LIVR, 3040-3, CBCA, BMP #### [facility] ([id number]) [address] [place] [address] 54202 Lymphocytes/100 WBC (Bld) 33.1 % Normal [facility] Comment on above: Performed By: #### 8 9579-7, 24331-8, 5643-2, 90914-1, LIVR, 3040-3, CBCA, BMP #### [facility] ([id number]) [address] [place] [address] 50889 MCH (RBC) [Entitic mass] 34.0 pg Normal 27-34 [facility] Comment on above: Performed By: #### 8 9579-7, 27354-9, 5643-2, 35058-2, LIVR, 3040-3, CBCA, BMP #### [facility] ([id number]) [address] [place] [address] 49079 MCHC (RBC) [Mass/Vol] 34.1 g/dL Normal 32-36 [facility] Comment on above: Performed By: #### 8 9579-7, 36180-4, 5643-2, 60720-1, LIVR, 3040-3, CBCA, BMP #### [facility] ([id number]) [address] [place] [address] 84360 MCV (RBC) [Entitic vol] 100 fL Normal 80-100 [facility] Comment on above: Performed By: #### 8 9579-7, 98604-0, 5643-2, 73503-8, LIVR, 3040-3, CBCA, BMP #### [facility] ([id number]) [address] [place] [address] 94329 Monocytes (Bld) [#/Vol] 0.9 10*3/uL Normal 0-0.9 [facility] Comment on above: Performed By: #### 8 9579-7, 49315-7, 5643-2, 01862-8, LIVR, 3040-3, CBCA, BMP #### [facility] ([id number]) [address] [place] [address] 28756 Monocytes/100 WBC (Bld) 12.0 % Normal [facility] Comment on above: Performed By: #### 8 9579-7, 52114-3, 5643-2, 93339-7, LIVR, 3040-3, CBCA, BMP #### [facility] ([id number]) [address] [place] [address] 30427 Neutrophils/100 WBC (Bld) 51.3 % Normal [facility] Comment on above: Performed By: #### 8 9579-7, 44587-0, 5643-2, 40326-1, LIVR, 3040-3, CBCA, BMP #### [facility] ([id number]) [address] [place] [address] 37098 Platelet mean volume (Bld) [Entitic vol] 8.2 fL Normal 7-12 [facility] Comment on above: Performed By: #### 8 9579-7, 60826-4, 5643-2, 69180-3, LIVR, 3040-3, CBCA, BMP #### [facility] ([id number]) [address] [place] [address] 07416 Platelets (Bld) [#/Vol] 266 10*3/uL Normal 150-450 [facility] Comment on above: Performed By: #### 8 9579-7, 17909-3, 5643-2, 22144-7, LIVR, 3040-3, CBCA, BMP #### [facility] ([id number]) [address] [place] [address] 58178 RBC COUNT 4.19 X10E12/L Normal 3.80-5.20 [facility] Comment on above: Performed By: #### 8 9579-7, 61271-4, 5643-2, 50336-4, LIVR, 3040-3, CBCA, BMP #### [facility] ([id number]) [address] [place] [address] 37044 WBC (Bld) [#/Vol] 7.7 10*3/uL Normal 4.0-11.0 [facility] Comment on above: Performed By: #### 8 9579-7, 71494-2, 5643-2, 50719-5, LIVR, 3040-3, CBCA, BMP #### [facility] ([id number]) [address] [place] [address] ABDOMEN AND PELVIS WO CON Ton [...] Presley MD on 12/29/2023 6:27 AM Normal [facility] ETHANOLon 12-29-2023 Ethanol [Mass/Vol] mg/dL Normal 0.00-0.08 [facility] Comment on above: Result Comment: This report is intended for use in clinical monitoring or management of patients. Performed By: #### 8 9579-7, 47601-4, 5643-2, 31357-1, LIVR, 3040-3, CBCA, BMP #### [facility] ([id number]) [address] [place] [address] 10497 Fibrin D-dimer DDU (PPP) [Ma ss/Vol]on 12-29-2023 D DIMER <150 Normal <255 [facility] Comment on above: Result Comment: Results <255 ng/mL DDU: The presence of a VTE can safely be excluded with a negative D-Dimer result and Wells score. A negative result doesn't exclude the possibility of DIC. The test be repeated along with other diagnostic tests if the patient's symptoms persist or worsen. [email or web address] Performed By: #### 8 9579-7, 78585-0, 5643-2, 72756-7, LIVR, 3040-3, CBCA, BMP #### [facility] ([id number]) [address] [place] [address] [place] [address] LIPASEon 12-29-2023 Lipase [Catalytic activity/Vol] 55 U/L High 17-40 [facility] Comment on above: Performed By: #### 8 9579-7, 07930-8, 5643-2, 75283-2, LIVR, 3040-3, CBCA, BMP #### [facility] ([id number]) [address] [place] [address] 75369 LIVER PANELon 12-29-2023 Albumin [Mass/Vol] 3.9 g/dL Normal 3.2-5.3 [facility] Comment on above: Performed By: #### 8 9579-7, 13013-2, 5643-2, 73099-1, LIVR, 3040-3, CBCA, BMP #### [facility] ([id number]) [address] [place] [address] 19976 ALP [Catalytic activity/Vol] 111 U/L Normal 39-130 [facility] Comment on above: Performed By: #### 8 9579-7, 32548-0, 5643-2, 50754-8, LIVR, 3040-3, CBCA, BMP #### [facility] ([id number]) [address] [place] [address] 66145 ALT [Catalytic activity/Vol] 11 U/L Normal 0-31 [facility] Comment on above: Performed By: #### 8 9579-7, 00604-8, 5643-2, 15429-6, LIVR, 3040-3, CBCA, BMP #### [facility] ([id number]) [address] [place] [address] 45312 AST [Catalytic activity/Vol] 23 U/L Normal 0-41 [facility] Comment on above: Performed By: #### 8 9579-7, 26770-4, 5643-2, 44776-6, LIVR, 3040-3, CBCA, BMP #### [facility] ([id number]) [address] [place] [address] 79272 Bilirubin [Mass/Vol] 0.5 mg/dL Normal 0.3-1.2 [facility] Comment on above: Result Comment: RESU LTS QUESTIONABLE DUE TO HEMOLYSIS Performed By: #### 8 9579-7, 77071-1, 5643-2, 89323-9, LIVR, 3040-3, CBCA, BMP #### [facility] ([id number]) [address] [place] [address] 07878 Bilirubin.direct [Mass/Vol] 0.3 mg/dL Normal 0.0-0.4 [facility] Comment on above: Performed By: #### 8 9579-7, 63051-8, 5643-2, 81611-4, LIVR, 3040-3, CBCA, BMP #### [facility] ([id number]) [address] [place] [address] 93175 Protein [Mass/Vol] 6.9 g/dL Normal 6.0-8.0 [facility] Comment on above: Performed By: #### 8 9579-7, 26212-3, 5643-2, 51551-1, LIVR, 3040-3, CBCA, BMP #### [facility] ([id number]) [address] [place] [address] 91705 MAGNESIUMon 12-29-2023 Magnesium [Mass/Vol] 2.2 mg/dL Normal 1.8-2.6 [facility] Comment on above: Performed By: #### 8 9579-7, 85828-9, 5643-2, 61750-9, LIVR, 3040-3, CBCA, BMP #### [facility] ([id number]) [address] [place] [address] 13508 Troponin I.cardiac High sens itivity method [Mass/Vol]on 12-29-2023 1 HOUR TROP I, HIGH SENSITIVITY 2 ng/L Normal <16 [facility] Comment on above: Performed By: #### 8 9579-7 #### [facility] ([id number]) [address] [place] [address] 49954 TROPONIN I, HIGH SENSITIVITY 2 ng/L Normal <16 [facility] Comment on above: Performed By: #### 8 9579-7, 00189-6, 5643-2, 63247-8, LIVR, 3040-3, CBCA, BMP #### [facility] ([id number]) [address] [facility], [place] [address] CBC with Diffon 09-29-2023 Basophils (Bld) [#/Vol] 0.05 10*3/uL [facility] Basophils/100 WBC (Bld) 0 % 0 - 2 % [facility] Eosinophils (Bld) [#/Vol] 0.05 10*3/uL [facility] Eosinophils/100 WBC (Bld) 0 % Low 1 - 4 % [facility] Erythrocyte distribution width (RBC) [Ratio] 12.9 % 11.8 - 14.4 % [facility] Hematocrit (Bld) [Volume fraction] 40.3 % 36.3 - 47.1 % [facility] Hemoglobin (Bld) [Mass/Vol] 14.2 g/dL 11.9 - 15.1 g/dL [facility] Immature granulocytes (Bld) [#/Vol] [facility] Immature granulocytes/100 WBC (Bld) 0 % 0 [facility] Interpretation and review of laboratory results Abnormal [facility] Lymphocytes/100 WBC (Bld) 19 % Low 24 - 43 % [facility] Lymphocytes/100 WBC (Bld) 2.18 % [facility] MCH (RBC) [Entitic mass] 33.8 pg High 25.2 - 33.5 pg [facility] MCHC (RBC) [Mass/Vol] 35.2 g/dL High 28.4 - 34.8 g/dL [facility] MCV (RBC) [Entitic vol] 96.0 fL 82.6 - 102.9 fL [facility] Monocytes/100 WBC (Bld) 8 % 3 - 12 % [facility] Monocytes/100 WBC (Bld) 0.94 % [facility] Neutrophils/100 WBC (Bld) 73 % High 36 - 65 % [facility] Nucleated RBC/100 WBC (Bld) [Ratio] 0.0 % 0.0 per 100 WBC [facility] Platelet mean volume (Bld) [Entitic vol] 9.4 fL 8.1 - 13.5 fL [facility] Platelets (Bld) [#/Vol] 193 10*3/uL [facility] RBC (Bld) [#/Vol] 4.20 10*6/uL 3.95 - 5.11 m/uL [facility] Segmented neutrophils/100 WBC (Bld) 8.10 % [facility] WBC other (Bld) [#/Vol] 11.3 [facility] CMPon 09-29-2023 Albumin [Mass/Vol] 4.4 g/dL 3.5 - 5.2 g/dL [facility] Albumin/Globulin [Mass ratio] 1.9 {ratio} 1.0 - 2.5 [facility] ALP [Catalytic activity/Vol] 123 U/L High 35 - 104 U/L [facility] ALT [Catalytic activity/Vol] 15 U/L 5 - 33 U/L [facility] Anion gap [Moles/Vol] 10 mmol/L 9 - 17 mmol/L [facility] AST [Catalytic activity/Vol] 21 U/L NINF - 32 U/L [facility] Bilirubin [Mass/Vol] 0.3 mg/dL 0.3 - 1 .2 mg/dL [facility] Calcium [Mass/Vol] 10.0 mg/dL 8.6 - 10. 4 mg/dL [facility] Chloride [Moles/Vol] 104 mmol/L 98 - 10 7 mmol/L [facility] CO2 [Moles/Vol] 24 mmol/L 20 - 31 mmol/L [facility] Creatinine [Mass/Vol] 0.8 mg/dL 0.5 - 0.9 mg/dL [facility] Est, Glom Filt Rate 88 - [facility] Comment on above: These results are [...] 126 mg/dL High 70 - 99 mg/dL [facility] Potassium [Moles/Vol] 3.5 mmol/L Low 3.7 - 5.3 mmol/L [facility] Protein [Mass/Vol] 6.7 g/dL 6.4 - 8.3 g/dL [facility] Sodium [Moles/Vol] 138 mmol/L 135 - 144 mmol/L [facility] Urea nitrogen [Mass/Vol] 10 mg/dL 6 - 20 mg/dL [facility] Urea nitrogen/Creatinine [Mass ratio] 13 mg/mg 9 - 20 [facility] Lipaseon 09-29-2023 Lipase [Catalytic activity/Vol] 141 U/L High 13 - 60 U/L [facility] Microscopic Urinalysison Bacteria LM Ql (Urine sed) TRACE Abnormal None [facility] Epithelial cells LM.HPF (Urine sed) [#/Area] 2 TO 5 [facility] Interpretation and review of laboratory results Abnormal [facility] RBC LM.HPF (Urine sed) [#/Area] 0 TO 2 [facility] WBC LM.HPF (Urine sed) [#/Area] 0 TO 2 [facility] No Panel Informationon 09-28 Interpretation and review of laboratory results Abnormal [facility] Urinalysis with Reflex to Cu ltureon 09-29-2023 Bilirubin Ql (U) Negative NEGATIVE [facility] Clarity (U) Clear Clear [facility] Color (U) Yellow Yellow [facility] Glucose Test strip (U) [Mass/Vol] Negative NEGATIVE mg/dL [facility] Hemoglobin Auto test strip Ql (U) Negative NEGATIVE [facility] Interpretation and review of laboratory results Abnormal [facility] Ketones (U) [Mass/Vol] Negative NEGAT [facility] mg/dL [facility] Leukocyte esterase Test strip Ql (U) Negative NEGATIVE [facility] Nitrite Ql (U) Negative NEGATIVE [facility] pH (U) 6.0 [pH] 5.0 - 9.0 [facility] Protein (U) [Mass/Vol] Negative NEGAT [facility] mg/dL [facility] Specific gravity (U) [Rel density] High 1.010 - 1.020 [facility] Urobilinogen Qn (U) Normal 0.0 - 1. 0 EU/dL [facility] UPPER EUSon 09-08-2023 [facility] Gastroenterology Patient Name: Chioma Rainey Procedure Date: 09/08/2023 7:35 AM Date of : 1970 Admit Type: Outpatient Age: 53 Room: EUS Proc Room 01 Gender: Female Note Status: Finalized Attending MD: Sabrina Dee MD, MPH, [id number] Procedure: Upper EUS Indications: Chronic pancreatitis, Celiac [...] the (more content not included)... LAB, [facility] Radiology Study observation (narrative) [facility] Alanine aminotransferase [En zymatic activity/volume] in Serum or PlasmaOrdered By: Darrel Kellogg on 04-18-2023 ALT [Catalytic activity/Vol] 9 U/L 7-52 [facility] Albumin [Mass/volume] in Ser um or Plasma by Bromocresol green (BCG) dye binding methoOrdered By: Darrel Kellogg on 04-18-2023 Albumin BCG dye [Mass/Vol] 4.5 g/dL 3.5-5.7 [facility] Alkaline phosphatase [Enzyma tic activity/volume] in Serum or PlasmaOrdered By: Darrel Kellogg on 04-18-2023 ALP [Catalytic activity/Vol] 107 U/L 34-104 [facility] Amylase [Enzymatic activity/ volume] in Serum or PlasmaOrdered By: Darrel Kellogg on 04-18-2023 Amylase [Catalytic activity/Vol] 72 U/L 29-103 [facility] Aspartate aminotransferase [ Enzymatic activity/volume] in Serum or PlasmaOrdered By: Darrel Kellogg on 04-18-2023 AST [Catalytic activity/Vol] 14 U/L 13-39 [facility] Basophils Auto (Bld) [#/Vol] Ordered By: Darrel Kellogg on 04-18-2023 Basophils (Bld) [#/Vol] 0.1 10*3/uL 0.0-0.2 [facility] Basophils/100 WBC Auto (Bld) Ordered By: Darrel Kellogg on 04-18-2023 Basophils/100 WBC (Bld) 0.8 % . [facility] Bilirubin.direct [Mass/volum e] in Serum or PlasmaOrdered By: Darrel Kellogg on 04-18-2023 Bilirubin.direct [Mass/Vol] 0.00 mg/dL 0.03-0.18 [facility] Comment on above: If the DBIL is less than 0.1, IBIL is not able to becalculated. Bilirubin.total [Mass/volume ] in Serum or PlasmaOrdered By: Darrel Kellogg on 04-18-2023 Bilirubin [Mass/Vol] 0.3 mg/dL 0.3-1.0 [facility] Calcium [Mass/volume] in Ser um or PlasmaOrdered By: Darrel Kellogg on 02-10-2024 Calcium [Mass/Vol] 11.1 mg/dL 8.6-10.3 [facility] Carbon dioxide, total [Moles /volume] in Serum or PlasmaOrdered By: Darrel Kellogg on 04-18-2023 CO2 [Moles/Vol] 30.2 mmol/L 21.0-31.0 [facility] Chloride [Moles/volume] in S erika or PlasmaOrdered By: Darrel Kellogg on 04-18-2023 Chloride [Moles/Vol] 103 mmol/L 98-107 [facility] Creatinine [Mass/volume] in Serum or PlasmaOrdered By: Darrel Kellogg on 04-18-2023 Creatinine [Mass/Vol] 0.80 mg/dL 0.60-1.20 [facility] Eosinophils Auto (Bld) [#/Vo l]Ordered By: Darrel Kellogg on 04-18-2023 Eosinophils (Bld) [#/Vol] 0.0 10*3/uL 0.0-0.45 [facility] Eosinophils/100 WBC Auto (Bl d)Ordered By: Darrel Kellogg on 04-18-2023 Eosinophils/100 WBC (Bld) 0.2 % . [facility] Erythrocyte distribution wid th Auto (RBC) [Ratio]Ordered By: Darrel Kellogg on 04-18-2023 Erythrocyte distribution width (RBC) [Ratio] 13.4 % 11.9-15.3 [facility] Ethanol [Mass/volume] in Ser um or PlasmaOrdered By: Darrel Kellogg on 04-18-2023 Ethanol [Mass/Vol] mg/dL [facility] Ethanol [Mass/Vol] TNP [facility] Comment on above: Test not performed Globulin Calc (S) [Mass/Vol] Ordered By: Darrel Kellogg on 04-18-2023 Globulin (S) [Mass/Vol] 2.2 g/dL [facility] Glucose [Mass/volume] in Ser um or PlasmaOrdered By: Darrel Kellogg on 04-18-2023 Glucose [Mass/Vol] 108 mg/dL 70-100 [facility] Comment on above: ADA recommended refe rence rangeRandom Glucose Reference Range is dependent on time and content of last meal. Glucose of more than 200 mg/dL in a nonstressed, ambulatory subject supports the diagnosis of Diabetes Mellitus. Hematocrit Auto (Bld) [Volum e fraction]Ordered By: Darrel Kellogg on 04-18-2023 Hematocrit (Bld) [Volume fraction] 41.6 % 34.0-46.4 [facility] Hemoglobin [Mass/volume] in BloodOrdered By: Darrel Kellogg on 04-18-2023 Hemoglobin (Bld) [Mass/Vol] 14.3 g/dL 11.8-15.4 [facility] Leukocytes [#/volume] correc aurelia for nucleated erythrocytes in Blood by Automated counOrdered By: Darrel Kellogg on 04-18-2023 WBC corrected for nucl RBC Auto (Bld) [#/Vol] 12.1 10*3/uL 3.8-11.6 [facility] Lipase [Enzymatic activity/v olume] in Serum or PlasmaOrdered By: Darrel Kellogg on 04-18-2023 Lipase [Catalytic activity/Vol] 47.0 U/L 11.0-82.0 [facility] Lymphocytes Auto (Bld) [#/Vo l]Ordered By: Darrel Kellogg on 04-18-2023 Lymphocytes (Bld) [#/Vol] 1.6 10*3/uL 1.00-4.8 [facility] Lymphocytes/100 WBC Auto (Bl d)Ordered By: Darrel Kellogg on 04-18-2023 Lymphocytes/100 WBC (Bld) 12.8 % . [facility] MCH Auto (RBC) [Entitic mass ]Ordered By: Darrel Kellogg on 04-18-2023 MCH (RBC) [Entitic mass] 32.7 pg 24.7-34.3 [facility] MCHC Auto (RBC) [Mass/Vol]Or dered By: Darrel Kellogg on 04-18-2023 MCHC (RBC) [Mass/Vol] 34.3 g/dL 32.0-35.0 [facility] MCV Auto (RBC) [Entitic vol] Ordered By: Darrel Klelogg on 04-18-2023 MCV (RBC) [Entitic vol] 95.5 fL 80-100 [facility] Monocyte distribution width [Entitic volume] in Blood by AutomatedOrdered By: Darrel Kellogg on 04-18-2023 Monocyte distribution width Auto (Bld) [Entitic vol] 16.25 % 0.00-20.00 [facility] Monocytes Auto (Bld) [#/Vol] Ordered By: Darrel Kellogg on 04-18-2023 Monocytes (Bld) [#/Vol] 0.6 10*3/uL 0.0-0.8 [facility] Monocytes/100 WBC Auto (Bld) Ordered By: Darrel Kellogg on 04-18-2023 Monocytes/100 WBC (Bld) 5.4 % . [facility] Neutrophils Auto (Bld) [#/Vo l]Ordered By: Darrel Kellogg on 04-18-2023 Neutrophils (Bld) [#/Vol] 9.8 10*3/uL 1.8-7.7 [facility] Neutrophils/100 WBC Auto (Bl d)Ordered By: Darrel Kellogg on 04-18-2023 Neutrophils/100 WBC (Bld) 80.8 % . [facility] No Panel InformationOrdered By: Darrel Kellogg on 04-18-2023 Estimated GFR (CKD-EPI) > 60.0 mL/Min [facility] Creatinine Clearance (Chem 64.32 [facility] Nucleated erythrocytes [Pres ence] in Blood by Automated countOrdered By: Darrel Kellogg on 04-18-2023 Nucleated RBC Auto Ql (Bld) 0.0 /100{WBC} 0-0.5 [facility] Platelet mean volume Auto (B ld) [Entitic vol]Ordered By: Darrel Kellogg on 04-18-2023 Platelet mean volume (Bld) [Entitic vol] 8.1 fL 6.3-10.7 [facility] Platelets Auto (Bld) [#/Vol] Ordered By: Darrel Kellogg on 04-18-2023 Platelets (Bld) [#/Vol] 227 10*3/uL 150-450 [facility] Potassium [Moles/volume] in Serum or PlasmaOrdered By: Darrel Kellogg on 04-18-2023 Potassium [Moles/Vol] 3.2 mmol/L 3.5-5.1 [facility] Protein [Mass/volume] in Ser um or PlasmaOrdered By: Darrel Kellogg on 04-18-2023 Protein [Mass/Vol] 6.7 g/dL 6.4-8.9 [facility] RBC Auto (Bld) [#/Vol]Ordere d By: Darrel Kellogg on 04-18-2023 RBC (Bld) [#/Vol] 4.35 10*6/uL 3.60-5.00 [facility] Serum or plasma albumin/glob ulin mass ratioOrdered By: Darrel Kellogg on 04-18-2023 Albumin/Globulin [Mass ratio] 2.0 {ratio} [facility] Serum or plasma anion gap de terminationOrdered By: Darrel Kellogg on 04-18-2023 Anion gap [Moles/Vol] 10.0 mmol/L 6.0-15.0 [facility] Serum or plasma non-glucuron idated bilirubin measurement (mass/volume)Ordered By: Darrel Kellogg on 04-18-2023 Bilirubin.indirect [Mass/Vol] 0.3 mg/dL [facility] Sodium [Moles/volume] in Ser um or PlasmaOrdered By: Darrel Kellogg on 04-18-2023 Sodium [Moles/Vol] 140 mmol/L 136-145 [facility] Urea nitrogen [Mass/volume] in Serum or PlasmaOrdered By: Darrel Kellogg on 04-18-2023 Urea nitrogen [Mass/Vol] 7 mg/dL 7- [facility] WBC Auto (Bld) [#/Vol]Ordere d By: Darrel Kellogg on 04-18-2023 WBC (Bld) [#/Vol] 12.1 10*3/uL 3.8-11.6 [facility] Activated partial thrombopla stin time (aPTT) in platelet poor plasma by coagulation aOrdered By: Rivera Lopez on 04-11-2023 aPTT Coag (PPP) [Time] 23.3 s 25.1-36.5 [facility] Comment on above: A hematocrit value g reater than 55% may lead to inaccurate results in coagulation testing. Patients having hematocrit values >55% require a special collection tube for coagulation studies. Please contact the laboratory at [phone] for redraw instructions. Alanine aminotransferase [En zymatic activity/volume] in Serum or PlasmaOrdered By: Rivera Lopez on 04-11-2023 ALT [Catalytic activity/Vol] 13 U/L 7-52 [facility] Albumin [Mass/volume] in Ser um or Plasma by Bromocresol green (BCG) dye binding methoOrdered By: Rivera Lopez on 04-11-2023 Albumin BCG dye [Mass/Vol] 4.5 g/dL 3.5-5.7 [facility] Alkaline phosphatase [Enzyma tic activity/volume] in Serum or PlasmaOrdered By: Rivera Lopez on 04-11-2023 ALP [Catalytic activity/Vol] 111 U/L 34-104 [facility] Aspartate aminotransferase [ Enzymatic activity/volume] in Serum or PlasmaOrdered By: Rivera Lopez on 04-11-2023 AST [Catalytic activity/Vol] 17 U/L 13-39 [facility] Automated erythrocytes count in urine sediment (number/area)Ordered By: Rivera Lopez on 04-11-2023 RBC Auto (Urine sed) [#/Area] 0-1 [HPF] 0-4 [facility] Automated leukocytes count i n urine sediment (number/area)Ordered By: Rivera Lopez on 04-11-2023 WBC Auto (Urine sed) [#/Area] 3-4 [HPF] 0-4 [facility] Basophils Auto (Bld) [#/Vol] Ordered By: Rivera Lopez on 04-11-2023 Basophils (Bld) [#/Vol] 0.1 10*3/uL 0.0-0.2 [facility] Basophils/100 WBC Auto (Bld) Ordered By: Rivera Lopez on 04-11-2023 Basophils/100 WBC (Bld) 0.4 % . [facility] Bilirubin Test strip Ql (U)O rdered By: Rivera Lopez on 04-11-2023 Bilirubin Ql (U) Negative Negative [facility] Bilirubin.direct [Mass/volum e] in Serum or PlasmaOrdered By: Rivera Lopez on 04-11-2023 Bilirubin.direct [Mass/Vol] 0.00 mg/dL 0.03-0.18 [facility] Comment on above: If the DBIL is less than 0.1, IBIL is not able to becalculated. Bilirubin.total [Mass/volume ] in Serum or PlasmaOrdered By: Rivera Lopez on 04-11-2023 Bilirubin [Mass/Vol] 0.3 mg/dL 0.3-1.0 [facility] Calcium [Mass/volume] in Ser um or PlasmaOrdered By: Rivera Lopez on 04-11-2023 Calcium [Mass/Vol] 10.3 mg/dL 8.6-10.3 [facility] Carbon dioxide, total [Moles /volume] in Serum or PlasmaOrdered By: Rivera Lopez on 04-11-2023 CO2 [Moles/Vol] 26.9 mmol/L 21.0-31.0 [facility] Chloride [Moles/volume] in S erika or PlasmaOrdered By: Rivera Lopez on 04-11-2023 Chloride [Moles/Vol] 103 mmol/L 98-107 [facility] Color Auto (U)Ordered By: Og Lopez on 04-11-2023 Color (U) Yellow Yellow [facility] Creatinine [Mass/volume] in Serum or PlasmaOrdered By: Rivera Lopez on 04-11-2023 Creatinine [Mass/Vol] 0.86 mg/dL 0.60-1.20 [facility] Eosinophils Auto (Bld) [#/Vo l]Ordered By: Rivera Lopez on 04-11-2023 Eosinophils (Bld) [#/Vol] 0.0 10*3/uL 0.0-0.45 [facility] Eosinophils/100 WBC Auto (Bl d)Ordered By: Rivera Lopez on 04-11-2023 Eosinophils/100 WBC (Bld) 0.0 % . [facility] Erythrocyte distribution wid th Auto (RBC) [Ratio]Ordered By: Rivera Lopez on 04-11-2023 Erythrocyte distribution width (RBC) [Ratio] 13.6 % 11.9-15.3 [facility] Globulin Calc (S) [Mass/Vol] Ordered By: Rivera Lopez on 04-11-2023 Globulin (S) [Mass/Vol] 2.4 g/dL [facility] Glucose [Mass/volume] in Ser um or PlasmaOrdered By: Rivera Lopez on 04-11-2023 Glucose [Mass/Vol] 121 mg/dL 70-100 [facility] Comment on above: ADA recommended refe rence rangeRandom Glucose Reference Range is dependent on time and content of last meal. Glucose of more than 200 mg/dL in a nonstressed, ambulatory subject supports the diagnosis of Diabetes Mellitus. Hematocrit Auto (Bld) [Volum e fraction]Ordered By: Rivera Lopez on 04-11-2023 Hematocrit (Bld) [Volume fraction] 41.3 % 34.0-46.4 [facility] Hemoglobin [Mass/volume] in BloodOrdered By: Rivera Lopez on 04-11-2023 Hemoglobin (Bld) [Mass/Vol] 13.7 g/dL 11.8-15.4 [facility] INR in Platelet poor plasma by Coagulation assayOrdered By: Rivera Lopez on 04-11-2023 INR Coag (PPP) [Relative time] 1.0 {INR} [facility] Comment on above: INR Therapeutic Rang [...] 04-11-2023 Ketones (U) [Mass/Vol] Negative Negative [facility] - UrinalysisOrder ed By: Rivera Lopez on 04-11-2023 Hyaline casts LM Ql (Urine sed) None seen [LPF] 0-8 [facility] Leukocytes [#/volume] correc aurelia for nucleated erythrocytes in Blood by Automated counOrdered By: Rivera Lopez on 04-11-2023 WBC corrected for nucl RBC Auto (Bld) [#/Vol] 13.9 10*3/uL 3.8-11.6 [facility] Lipase [Enzymatic activity/v olume] in Serum or PlasmaOrdered By: Rivera Lopez on 04-11-2023 Lipase [Catalytic activity/Vol] 26.0 U/L 11.0-82.0 [facility] Lymphocytes Auto (Bld) [#/Vo l]Ordered By: Rivera Lopez on 04-11-2023 Lymphocytes (Bld) [#/Vol] 1.1 10*3/uL 1.00-4.8 [facility] Lymphocytes/100 WBC Auto (Bl d)Ordered By: Rivera Lopez on 04-11-2023 Lymphocytes/100 WBC (Bld) 8.1 % . [facility] MCH Auto (RBC) [Entitic mass ]Ordered By: Rivera Lopez on 04-11-2023 MCH (RBC) [Entitic mass] 32.2 pg 24.7-34.3 [facility] MCHC Auto (RBC) [Mass/Vol]Or dered By: Rivera Lopez on 04-11-2023 MCHC (RBC) [Mass/Vol] 33.2 g/dL 32.0-35.0 [facility] MCV Auto (RBC) [Entitic vol] Ordered By: Rivera Lopez on 04-11-2023 MCV (RBC) [Entitic vol] 96.8 fL 80-100 [facility] Monocyte distribution width [Entitic volume] in Blood by AutomatedOrdered By: Rivera Lopez on 04-11-2023 Monocyte distribution width Auto (Bld) [Entitic vol] 17.01 % 0.00-20.00 [facility] Monocytes Auto (Bld) [#/Vol] Ordered By: Rivera Lopez on 04-11-2023 Monocytes (Bld) [#/Vol] 0.6 10*3/uL 0.0-0.8 [facility] Monocytes/100 WBC Auto (Bld) Ordered By: Rivera Lopez on 04-11-2023 Monocytes/100 WBC (Bld) 4.3 % . [facility] Neutrophils Auto (Bld) [#/Vo l]Ordered By: Rivera Lopez on 04-11-2023 Neutrophils (Bld) [#/Vol] 12.1 10*3/uL 1.8-7.7 [facility] Neutrophils/100 WBC Auto (Bl d)Ordered By: Rivera Lopez on 04-11-2023 Neutrophils/100 WBC (Bld) 87.2 % . [facility] Nitrite Test strip Ql (U)Ord ered By: Rivera Lopez on 04-11-2023 Nitrite Ql (U) Negative Negative [facility] No Panel InformationOrdered By: Rivera Lopez on 04-11-2023 Estimated GFR (CKD-EPI) > 60.0 mL/Min [facility] Creatinine Clearance (Chem 59.83 [facility] Nucleated erythrocytes [Pres ence] in Blood by Automated countOrdered By: Rivera Lopez on 04-11-2023 Nucleated RBC Auto Ql (Bld) 0.0 /100{WBC} 0-0.5 [facility] Platelet mean volume Auto (B ld) [Entitic vol]Ordered By: Rivera Lopez on 04-11-2023 Platelet mean volume (Bld) [Entitic vol] 7.7 fL 6.3-10.7 [facility] Platelets Auto (Bld) [#/Vol] Ordered By: Rivera Lopez on 04-11-2023 Platelets (Bld) [#/Vol] 262 10*3/uL 150-450 [facility] Potassium [Moles/volume] in Serum or PlasmaOrdered By: Rivera Lopez on 04-11-2023 Potassium [Moles/Vol] 4.0 mmol/L 3.5-5.1 [facility] Protein Auto test strip (U) [Mass/Vol]Ordered By: Rivera Lopez on 04-11-2023 Protein (U) [Mass/Vol] Negative Negative [facility] Protein [Mass/volume] in Ser um or PlasmaOrdered By: Rivera Lopez on 04-11-2023 Protein [Mass/Vol] 6.9 g/dL 6.4-8.9 [facility] Prothrombin time (PT)Ordered By: Rivera Lopez on 04-11-2023 PT Coag (PPP) [Time] 11.2 s 9.0-12.9 [facility] Comment on above: A hematocrit value g reater than 55% may lead to inaccurate results in coagulation testing. Patients having hematocrit values >55% require a special collection tube for coagulation studies. Please contact the laboratory at [phone] for redraw instructions. RBC Auto (Bld) [#/Vol]Ordere d By: Rivera Lopez on 04-11-2023 RBC (Bld) [#/Vol] 4.27 10*6/uL 3.60-5.00 [facility] Serum or plasma albumin/glob ulin mass ratioOrdered By: Rivera Lopez on 04-11-2023 Albumin/Globulin [Mass ratio] 1.9 {ratio} [facility] Serum or plasma anion gap de terminationOrdered By: Rivera Lopez on 04-11-2023 Anion gap [Moles/Vol] 14.1 mmol/L 6.0-15.0 [facility] Serum or plasma non-glucuron idated bilirubin measurement (mass/volume)Ordered By: Rivera Lopez on 04-11-2023 Bilirubin.indirect [Mass/Vol] 0.3 mg/dL [facility] Sodium [Moles/volume] in Ser um or PlasmaOrdered By: Rivera Lopze on 04-11-2023 Sodium [Moles/Vol] 140 mmol/L 136-145 [facility] Specific gravity Auto test s trip (U) [Rel density]Ordered By: Rivera Lopez on 04-11-2023 Specific gravity (U) [Rel density] > 1.050 1.001-1.03 0 [facility] Squamous epithelial cells de tection in urine sediment by light microscopyOrdered By: Rivera Lopez on 04-11-2023 Epithelial cells.squamous LM Ql (Urine sed) 0-1 [HPF] 0-2 [facility] Urea nitrogen [Mass/volume] in Serum or PlasmaOrdered By: Rivera Lopez on 04-11-2023 Urea nitrogen [Mass/Vol] 5 mg/dL 7-25 [facility] Urine bacteria detection by automated methodOrdered By: Rivera Lopez on 04-11-2023 Bacteria Auto Ql (U) None seen None Seen [facility] Urine clarity by refractomet ry automatedOrdered By: Rivera Lopez on 04-11-2023 Clarity Refractometry automated (U) Turbid Clear [facility] Urine glucose measurement by automated test strip (mass/volume)Ordered By: Rivera Lopez on 04-11-2023 Glucose Auto test strip (U) [Mass/Vol] Normal mg/dL Normal [facility] Urine hemoglobin detection b y automated test stripOrdered By: Rivera Lopez on 04-11-2023 Hemoglobin Auto test strip Ql (U) Negative Negative [facility] Urine leukocyte esterase det ection by automated test stripOrdered By: Rivera Lopez on 04-11-2023 Leukocyte esterase Auto test strip Ql (U) Negative Negative [facility] Urobilinogen Auto test strip (U) [Mass/Vol]Ordered By: Rivera Lopez on 04-11-2023 Urobilinogen (U) [Mass/Vol] Normal mg/dL Normal [facility] WBC Auto (Bld) [#/Vol]Ordere d By: Rivera Lopez on 04-11-2023 WBC (Bld) [#/Vol] 13.9 10*3/uL 3.8-11.6 [facility] pH Auto test strip (U)Ordere d By: Rivera Lopez on 04-11-2023 pH (U) 8.0 [pH] 5.0-9.0 [facility] Alanine aminotransferase [En zymatic activity/volume] in Serum or PlasmaOrdered By: Diomedes Posadas on 04-02-2023 ALT [Catalytic activity/Vol] 11 U/L 7-52 [facility] Albumin [Mass/volume] in Ser um or Plasma by Bromocresol green (BCG) dye binding methoOrdered By: Diomedes Posadas on 04-02-2023 Albumin BCG dye [Mass/Vol] 4.2 g/dL 3.5-5.7 [facility] Alkaline phosphatase [Enzyma tic activity/volume] in Serum or PlasmaOrdered By: iDomedes Posadas on 04-02-2023 ALP [Catalytic activity/Vol] 101 U/L 34-104 [facility] Aspartate aminotransferase [ Enzymatic activity/volume] in Serum or PlasmaOrdered By: Diomedes Posadas on 04-02-2023 AST [Catalytic activity/Vol] 21 U/L 13-39 [facility] Basophils Auto (Bld) [#/Vol] Ordered By: Diomedes Posadas on 04-02-2023 Basophils (Bld) [#/Vol] 0.0 10*3/uL 0.0-0.2 [facility] Basophils/100 WBC Auto (Bld) Ordered By: Diomedes Posadas on 04-02-2023 Basophils/100 WBC (Bld) 0.2 % . [facility] Bilirubin Test strip Ql (U)O rdered By: Diomedes Posadas on 04-02-2023 Bilirubin Ql (U) Negative Negative [facility] Bilirubin.total [Mass/volume ] in Serum or PlasmaOrdered By: Diomedes Posadas on 04-02-2023 Bilirubin [Mass/Vol] 0.3 mg/dL 0.3-1.0 [facility] Calcium [Mass/volume] in Ser um or PlasmaOrdered By: Diomedes Posadas on 04-02-2023 Calcium [Mass/Vol] 9.7 mg/dL 8.6-10.3 [facility] Carbon dioxide, total [Moles /volume] in Serum or PlasmaOrdered By: Diomedes Posadas on 04-02-2023 CO2 [Moles/Vol] 26.3 mmol/L 21.0-31.0 [facility] Chloride [Moles/volume] in S erika or PlasmaOrdered By: Diomedes Posadas on 04-02-2023 Chloride [Moles/Vol] 106 mmol/L 98-107 [facility] Color Auto (U)Ordered By: Reshma Posadas on 04-02-2023 Color (U) Yellow Yellow [facility] Creatinine [Mass/volume] in Serum or PlasmaOrdered By: Diomedes Posadas on 04-02-2023 Creatinine [Mass/Vol] 0.82 mg/dL 0.60-1.20 [facility] Eosinophils Auto (Bld) [#/Vo l]Ordered By: Diomedes Posadas on 04-02-2023 Eosinophils (Bld) [#/Vol] 0.1 10*3/uL 0.0-0.45 [facility] Eosinophils/100 WBC Auto (Bl d)Ordered By: Diomedes Posadas on 04-02-2023 Eosinophils/100 WBC (Bld) 1.7 % . [facility] Erythrocyte distribution wid th Auto (RBC) [Ratio]Ordered By: Diomedes Posadas on 04-02-2023 Erythrocyte distribution width (RBC) [Ratio] 13.3 % 11.9-15.3 [facility] Fibrin D-dimer [Presence] in Platelet poor plasma by Latex agglutinationOrdered By: Diomedes Posadas on 04-02-2023 Fibrin D-dimer LA Ql (PPP) < 200 ng/mL 0-243 [facility] Comment on above: The reference range [...] coagulation studies. Please contact the laboratory at [phone] for redraw instructions. Globulin Calc (S) [Mass/Vol] Ordered By: Diomedes Posadas on 04-02-2023 Globulin (S) [Mass/Vol] 2.4 g/dL [facility] Glucose [Mass/volume] in Ser um or PlasmaOrdered By: Diomedes Posadas on 04-02-2023 Glucose [Mass/Vol] 90 mg/dL 70-100 [facility] Comment on above: ADA recommended refe rence rangeRandom Glucose Reference Range is dependent on time and content of last meal. Glucose of more than 200 mg/dL in a nonstressed, ambulatory subject supports the diagnosis of Diabetes Mellitus. Hematocrit Auto (Bld) [Volum e fraction]Ordered By: Diomedes Posadas on 04-02-2023 Hematocrit (Bld) [Volume fraction] 41.8 % 34.0-46.4 [facility] Hemoglobin [Mass/volume] in BloodOrdered By: Diomedes Posadas on 04-02-2023 Hemoglobin (Bld) [Mass/Vol] 14.2 g/dL 11.8-15.4 [facility] Ketones Auto test strip (U) [Mass/Vol]Ordered By: Diomedes Posadas on 04-02-2023 Ketones (U) [Mass/Vol] Negative Negative [facility] Leukocytes [#/volume] correc aurelia for nucleated erythrocytes in Blood by Automated counOrdered By: Diomedes Posadas on 04-02-2023 WBC corrected for nucl RBC Auto (Bld) [#/Vol] 6.2 10*3/uL 3.8-11.6 [facility] Lipase [Enzymatic activity/v olume] in Serum or PlasmaOrdered By: Diomedes Posadas on 04-02-2023 Lipase [Catalytic activity/Vol] 186.0 U/L 11.0-82.0 [facility] Lymphocytes Auto (Bld) [#/Vo l]Ordered By: Diomedes Posadas on 04-02-2023 Lymphocytes (Bld) [#/Vol] 1.8 10*3/uL 1.00-4.8 [facility] Lymphocytes/100 WBC Auto (Bl d)Ordered By: Diomedes Posadas on 04-02-2023 Lymphocytes/100 WBC (Bld) 29.2 % . [facility] MCH Auto (RBC) [Entitic mass ]Ordered By: Diomedes Posadas on 04-02-2023 MCH (RBC) [Entitic mass] 33.1 pg 24.7-34.3 [facility] MCHC Auto (RBC) [Mass/Vol]Or dered By: Diomedes Posadas on 04-02-2023 MCHC (RBC) [Mass/Vol] 34.0 g/dL 32.0-35.0 [facility] MCV Auto (RBC) [Entitic vol] Ordered By: Diomedes Posadas on 04-02-2023 MCV (RBC) [Entitic vol] 97.4 fL 80-100 [facility] Monocyte distribution width [Entitic volume] in Blood by AutomatedOrdered By: Diomedes Posadas on 04-02-2023 Monocyte distribution width Auto (Bld) [Entitic vol] 17.36 % 0.00-20.00 [facility] Monocytes Auto (Bld) [#/Vol] Ordered By: Diomedes Posadas on 04-02-2023 Monocytes (Bld) [#/Vol] 0.6 10*3/uL 0.0-0.8 [facility] Monocytes/100 WBC Auto (Bld) Ordered By: Diomedes Posadas on 04-02-2023 Monocytes/100 WBC (Bld) 9.8 % . [facility] Neutrophils Auto (Bld) [#/Vo l]Ordered By: Diomedes Posadas on 04-02-2023 Neutrophils (Bld) [#/Vol] 3.6 10*3/uL 1.8-7.7 [facility] Neutrophils/100 WBC Auto (Bl d)Ordered By: Diomedes Posadas on 04-02-2023 Neutrophils/100 WBC (Bld) 59.1 % . [facility] Nitrite Test strip Ql (U)Ord ered By: Diomedes Posadas on 04-02-2023 Nitrite Ql (U) Negative Negative [facility] No Panel InformationOrdered By: Diomedes Posadas on 04-02-2023 Estimated GFR (CKD-EPI) > 60.0 mL/Min [facility] Creatinine Clearance (Chem 62.75 [facility] Nucleated erythrocytes [Pres ence] in Blood by Automated countOrdered By: Diomedes Posadas on 04-02-2023 Nucleated RBC Auto Ql (Bld) 0.1 /100{WBC} 0-0.5 [facility] Platelet mean volume Auto (B ld) [Entitic vol]Ordered By: Diomedes Posadas on 04-02-2023 Platelet mean volume (Bld) [Entitic vol] 8.3 fL 6.3-10.7 [facility] Platelets Auto (Bld) [#/Vol] Ordered By: Diomedes Posadas on 04-02-2023 Platelets (Bld) [#/Vol] 236 10*3/uL 150-450 [facility] Potassium [Moles/volume] in Serum or PlasmaOrdered By: Diomedes Posadas on 04-02-2023 Potassium [Moles/Vol] 4.3 mmol/L 3.5-5.1 [facility] Protein Auto test strip (U) [Mass/Vol]Ordered By: Diomedes Posadas on 04-02-2023 Protein (U) [Mass/Vol] Negative Negative [facility] Protein [Mass/volume] in Ser um or PlasmaOrdered By: Diomedes Posadas on 04-02-2023 Protein [Mass/Vol] 6.6 g/dL 6.4-8.9 [facility] RBC Auto (Bld) [#/Vol]Ordere d By: Diomedes Posadas on 04-02-2023 RBC (Bld) [#/Vol] 4.29 10*6/uL 3.60-5.00 [facility] Serum or plasma albumin/glob ulin mass ratioOrdered By: Diomedes Posadas on 04-02-2023 Albumin/Globulin [Mass ratio] 1.8 {ratio} [facility] Serum or plasma anion gap de terminationOrdered By: Diomedes Posadas on 04-02-2023 Anion gap [Moles/Vol] TNP [facility] Comment on above: Test not performed Sodium [Moles/volume] in Ser um or PlasmaOrdered By: Diomedes Posadas on 04-02-2023 Sodium [Moles/Vol] 137 mmol/L 136-145 [facility] Specific gravity Auto test s trip (U) [Rel density]Ordered By: Diomedes Posadas on 04-02-2023 Specific gravity (U) [Rel density] 1.022 1.001-1.03 0 [facility] Troponin I.cardiac [Mass/vol ume] in Serum or Plasma by Detection limit <= 0.01 ng/Ordered By: Diomedes Posadas on 04-02-2023 Troponin I.cardiac DL <= 0.01 ng/mL [Mass/Vol] 2.6 pg/mL 0.0-15.0 [facility] Urea nitrogen [Mass/volume] in Serum or PlasmaOrdered By: Diomedes Posadas on 04-02-2023 Urea nitrogen [Mass/Vol] 7 mg/dL 09-30 [facility] Urine clarity by refractomet ry automatedOrdered By: Diomedes Posadas on 04-02-2023 Clarity Refractometry automated (U) Clear Clear [facility] Urine glucose measurement by automated test strip (mass/volume)Ordered By: Dioemdes Posadas on 04-02-2023 Glucose Auto test strip (U) [Mass/Vol] Normal mg/dL Normal [facility] Urine hemoglobin detection b y automated test stripOrdered By: Diomedes Posadas on 04-02-2023 Hemoglobin Auto test strip Ql (U) Negative Negative [facility] Urine leukocyte esterase det ection by automated test stripOrdered By: Diomedes Posadas on 04-02-2023 Leukocyte esterase Auto test strip Ql (U) Negative Negative [facility] Urobilinogen Auto test strip (U) [Mass/Vol]Ordered By: Diomedes Posadas on 04-02-2023 Urobilinogen (U) [Mass/Vol] Normal mg/dL Normal [facility] WBC Auto (Bld) [#/Vol]Ordere d By: Diomedes Posadas on 04-02-2023 WBC (Bld) [#/Vol] 6.2 10*3/uL 3.8-11.6 [facility] pH Auto test strip (U)Ordere d By: Diomedes Posadas on 04-02-2023 pH (U) 5.5 [pH] 5.0-9.0 [facility] Alanine aminotransferase [En zymatic activity/volume] in Serum or PlasmaOrdered By: Diomedes Posadas on 11-09-2022 ALT [Catalytic activity/Vol] 12 U/L 7-52 [facility] Albumin [Mass/volume] in Ser um or Plasma by Bromocresol green (BCG) dye binding methoOrdered By: Diomedes Posadas on 11-09-2022 Albumin BCG dye [Mass/Vol] 4.4 g/dL 3.5-5.7 [facility] Alkaline phosphatase [Enzyma tic activity/volume] in Serum or PlasmaOrdered By: Diomedes Posadas on 11-09-2022 ALP [Catalytic activity/Vol] 126 U/L 34-104 [facility] Aspartate aminotransferase [ Enzymatic activity/volume] in Serum or PlasmaOrdered By: Diomedes Posadas on 11-09-2022 AST [Catalytic activity/Vol] 17 U/L 13-39 [facility] Basophils Auto (Bld) [#/Vol] Ordered By: Diomedes Posadas on 11-09-2022 Basophils (Bld) [#/Vol] 0.1 10*3/uL 0.0-0.2 [facility] Basophils/100 WBC Auto (Bld) Ordered By: Diomedes Posadas on 11-09-2022 Basophils/100 WBC (Bld) 0.9 % . [facility] Bilirubin Test strip Ql (U)O rdered By: Diomedes Posadas on 11-09-2022 Bilirubin Ql (U) Negative Negative [facility] Bilirubin.total [Mass/volume ] in Serum or PlasmaOrdered By: Diomedes Posadas on 11-09-2022 Bilirubin [Mass/Vol] 0.3 mg/dL 0.3-1.0 [facility] Calcium [Mass/volume] in Ser um or PlasmaOrdered By: Diomedes Posadas on 11-09-2022 Calcium [Mass/Vol] 9.7 mg/dL 8.6-10.3 [facility] Carbon dioxide, total [Moles /volume] in Serum or PlasmaOrdered By: Diomedes Posadas on 11-09-2022 CO2 [Moles/Vol] 28.6 mmol/L 21.0-31.0 [facility] Chloride [Moles/volume] in S erika or PlasmaOrdered By: Diomedes Posadas on 11-09-2022 Chloride [Moles/Vol] 107 mmol/L 98-107 [facility] Color Auto (U)Ordered By: Reshma Posadas on 11-09-2022 Color (U) Yellow Yellow [facility] Creatinine [Mass/volume] in Serum or PlasmaOrdered By: Diomedes Posadas on 11-09-2022 Creatinine [Mass/Vol] 0.78 mg/dL 0.60-1.20 [facility] Eosinophils Auto (Bld) [#/Vo l]Ordered By: Diomedes Posadas on 11-09-2022 Eosinophils (Bld) [#/Vol] 0.1 10*3/uL 0.0-0.45 [facility] Eosinophils/100 WBC Auto (Bl d)Ordered By: Diomedes Posadas on 11-09-2022 Eosinophils/100 WBC (Bld) 1.6 % . [facility] Erythrocyte distribution wid th Auto (RBC) [Ratio]Ordered By: Diomedes Posadas on 11-09-2022 Erythrocyte distribution width (RBC) [Ratio] 13.6 % 11.9-15.3 [facility] Globulin Calc (S) [Mass/Vol] Ordered By: Diomedes Posadas on 11-09-2022 Globulin (S) [Mass/Vol] 2.7 g/dL [facility] Glucose [Mass/volume] in Ser um or PlasmaOrdered By: Diomedes Posadas on 11-09-2022 Glucose [Mass/Vol] 96 mg/dL 70-100 [facility] Comment on above: ADA recommended refe rence rangeRandom Glucose Reference Range is dependent on time and content of last meal. Glucose of more than 200 mg/dL in a nonstressed, ambulatory subject supports the diagnosis of Diabetes Mellitus. Hematocrit Auto (Bld) [Volum e fraction]Ordered By: Diomedes Posadas on 11-09-2022 Hematocrit (Bld) [Volume fraction] 44.4 % 34.0-46.4 [facility] Hemoglobin [Mass/volume] in BloodOrdered By: Diomedes Posadas on 11-09-2022 Hemoglobin (Bld) [Mass/Vol] 14.9 g/dL 11.8-15.4 [facility] Ketones Auto test strip (U) [Mass/Vol]Ordered By: Diomedes Posadas on 11-09-2022 Ketones (U) [Mass/Vol] Negative Negative [facility] Leukocytes [#/volume] correc aurelia for nucleated erythrocytes in Blood by Automated counOrdered By: Diomedes Posadas on 11-09-2022 WBC corrected for nucl RBC Auto (Bld) [#/Vol] 9.3 10*3/uL 3.8-11.6 [facility] Lipase [Enzymatic activity/v olume] in Serum or PlasmaOrdered By: Diomedes Posadas on 11-09-2022 Lipase [Catalytic activity/Vol] 78.0 U/L 11.0-82.0 [facility] Lymphocytes Auto (Bld) [#/Vo l]Ordered By: Diomedes Posadas on 11-09-2022 Lymphocytes (Bld) [#/Vol] 2.2 10*3/uL 1.00-4.8 [facility] Lymphocytes/100 WBC Auto (Bl d)Ordered By: Diomedes Posadas on 11-09-2022 Lymphocytes/100 WBC (Bld) 24.0 % . [facility] MCH Auto (RBC) [Entitic mass ]Ordered By: Diomedes Posadas on 11-09-2022 MCH (RBC) [Entitic mass] 32.8 pg 24.7-34.3 [facility] MCHC Auto (RBC) [Mass/Vol]Or dered By: Diomedes Posadas on 11-09-2022 MCHC (RBC) [Mass/Vol] 33.4 g/dL 32.0-35.0 [facility] MCV Auto (RBC) [Entitic vol] Ordered By: Diomedes Posadas on 11-09-2022 MCV (RBC) [Entitic vol] 98.2 fL 80-100 [facility] Monocyte distribution width [Entitic volume] in Blood by AutomatedOrdered By: Diomedes Posadas on 11-09-2022 Monocyte distribution width Auto (Bld) [Entitic vol] 18.76 % 0.00-20.00 [facility] Monocytes Auto (Bld) [#/Vol] Ordered By: Diomedes Posadas on 11-09-2022 Monocytes (Bld) [#/Vol] 0.8 10*3/uL 0.0-0.8 [facility] Monocytes/100 WBC Auto (Bld) Ordered By: Diomedes Posadas on 11-09-2022 Monocytes/100 WBC (Bld) 8.1 % . [facility] Neutrophils Auto (Bld) [#/Vo l]Ordered By: Diomedes Posadas on 11-09-2022 Neutrophils (Bld) [#/Vol] 6.1 10*3/uL 1.8-7.7 [facility] Neutrophils/100 WBC Auto (Bl d)Ordered By: Diomedes Posadas on 11-09-2022 Neutrophils/100 WBC (Bld) 65.4 % . [facility] Nitrite Test strip Ql (U)Ord ered By: Diomedes Posadas on 11-09-2022 Nitrite Ql (U) Negative Negative [facility] No Panel InformationOrdered By: Diomedes Posadas on 11-09-2022 Estimated GFR (CKD-EPI) > 60.0 mL/Min [facility] Creatinine Clearance (Chem 69.00 [facility] Nucleated erythrocytes [Pres ence] in Blood by Automated countOrdered By: Diomedes Posadas on 11-09-2022 Nucleated RBC Auto Ql (Bld) 0.0 /100{WBC} 0-0.5 [facility] Platelet mean volume Auto (B ld) [Entitic vol]Ordered By: Diomedes Posadas on 11-09-2022 Platelet mean volume (Bld) [Entitic vol] 8.3 fL 6.3-10.7 [facility] Platelets Auto (Bld) [#/Vol] Ordered By: Diomedes Posadas on 11-09-2022 Platelets (Bld) [#/Vol] 246 10*3/uL 150-450 [facility] Potassium [Moles/volume] in Serum or PlasmaOrdered By: Diomedes Posadas on 11-09-2022 Potassium [Moles/Vol] 3.7 mmol/L 3.5-5.1 [facility] Protein Auto test strip (U) [Mass/Vol]Ordered By: Diomedes Posadas on 11-09-2022 Protein (U) [Mass/Vol] Negative Negative [facility] Protein [Mass/volume] in Ser um or PlasmaOrdered By: Diomedes Posadas on 11-09-2022 Protein [Mass/Vol] 7.1 g/dL 6.4-8.9 [facility] RBC Auto (Bld) [#/Vol]Ordere d By: Diomedes Posadas on 11-09-2022 RBC (Bld) [#/Vol] 4.52 10*6/uL 3.60-5.00 [facility] Serum or plasma albumin/glob ulin mass ratioOrdered By: Diomedes Posadas on 11-09-2022 Albumin/Globulin [Mass ratio] 1.6 {ratio} [facility] Serum or plasma anion gap de terminationOrdered By: Diomedes Posadas on 11-09-2022 Anion gap [Moles/Vol] 8.1 mmol/L 6.0-15.0 [facility] Sodium [Moles/volume] in Ser um or PlasmaOrdered By: Diomedes Posadas on 11-09-2022 Sodium [Moles/Vol] 140 mmol/L 136-145 [facility] Specific gravity Auto test s trip (U) [Rel density]Ordered By: Diomedes Posadas on 11-09-2022 Specific gravity (U) [Rel density] 1.012 1.001-1.03 0 [facility] Troponin I.cardiac [Mass/vol ume] in Serum or Plasma by Detection limit <= 0.01 ng/Ordered By: Diomedes Posadas on 11-09-2022 Troponin I.cardiac DL <= 0.01 ng/mL [Mass/Vol] 3.0 pg/mL 0.0-15.0 [facility] Urea nitrogen [Mass/volume] in Serum or PlasmaOrdered By: Diomedes Posadas on 11-09-2022 Urea nitrogen [Mass/Vol] 6 mg/dL 7-25 [facility] Urine clarity by refractomet ry automatedOrdered By: Diomedes Posadas on 11-09-2022 Clarity Refractometry automated (U) Clear Clear [facility] Urine glucose measurement by automated test strip (mass/volume)Ordered By: Diomedes Posadas on 11-09-2022 Glucose Auto test strip (U) [Mass/Vol] Normal mg/dL Normal [facility] Urine hemoglobin detection b y automated test stripOrdered By: Diomedes Posadas on 11-09-2022 Hemoglobin Auto test strip Ql (U) Negative Negative [facility] Urine leukocyte esterase det ection by automated test stripOrdered By: Diomedes Posadas on 11-09-2022 Leukocyte esterase Auto test strip Ql (U) Negative Negative [facility] Urobilinogen Auto test strip (U) [Mass/Vol]Ordered By: Diomedes Posadas on 11-09-2022 Urobilinogen (U) [Mass/Vol] Normal mg/dL Normal [facility] WBC Auto (Bld) [#/Vol]Ordere d By: Doimedes Posadas on 09-03-2023 WBC (Bld) [#/Vol] 9.3 10*3/uL 3.8-11.6 [facility] pH Auto test strip (U)Ordere d By: Diomedes Posadas on 11-09-2022 pH (U) 5.5 [pH] 5.0-9.0 [facility] UPPER EUSon 08-12-2022 [facility] Gastroenterology Patient Name: Chioma Rainey Procedure Date: 08/12/2022 11:09 AM Date of : 1970 Admit Type: Outpatient Age: 52 Room: EUS Proc Room 01 Gender: Female Note Status: Finalized Attending MD: Sabrina Dee MD, MPH, [id number] Procedure: Upper EUS Indications: Chronic pancreatitis, Epigastric abdominal pain, Celiac plexus block for pain secondary to chronic pancreatitis, Dysphagia, Follow-up of esophageal stenosis, For therapy of esophageal stenosis Providers: Sabrina Dee MD, MPH (Doctor), Kolby Gifford RN (Nurse), Elba Faustin (Nurse), Mary Gaviria Barrel Handler (Barrel Handler) Referring MD: Alexander Nichols MD (Referring MD) [...] by the physician, the nurse and the digital sales director in the procedure room. Mental Status Examination: [...] abnor (more content not included)... LAB, [facility] Radiology Study observation (narrative) [facility] AMYLASEon 06-13-2022 Amylase [Catalytic activity/Vol] 92 U/L Normal 25-115 [facility] Comment on above: Performed By: #### L IPA, CMP, CRP, NAT #### [facility] [address] [address] [address] Keturah Fisher CBC AUTO DIFFon 06-13-2022 BASO # 0.1 103/ul Normal 0.0-0.1 [facility] Comment on above: Performed By: #### L IPA, CMP, CRP, NAT #### [facility] [address] [address] [address] Keturah Fisher Basophils/100 WBC (Bld) 0.7 % Normal 0.2-2.0 [facility] Comment on above: Performed By: #### L IPA, CMP, CRP, NAT #### [facility] [address] [place] [address] Dr. Keturah Fisher EO # 0.1 103/ul Normal 0.0-0.7 [facility] Comment on above: Performed By: #### L IPA, CMP, CRP, NAT #### [facility] [address] [place] [address] Dr. Keturah Fisher Eosinophils/100 WBC (Bld) 1.1 % Normal 0.9-7.0 [facility] Comment on above: Performed By: #### L IPA, CMP, CRP, NAT #### [facility] [address] [place] [address] Dr. Keturah Fisher Erythrocyte distribution width (RBC) [Ratio] 13.0 % Normal 11.0-15.0 [facility] Comment on above: Performed By: #### L IPA, CMP, CRP, NAT #### [facility] [address] [place] [address] Dr. Keturah Fisher Hematocrit (Bld) [Volume fraction] 40.5 % Normal 36.0-48.0 [facility] Comment on above: Performed By: #### L IPA, CMP, CRP, NAT #### [facility] [address] [place] [address] Dr. Keturah Fisher Hemoglobin (Bld) [Mass/Vol] 13.9 g/dL Normal 12.0-16.0 [facility] Comment on above: Performed By: #### L IPA, CMP, CRP, NAT #### [facility] [address] [place] [address] Dr. Keturah Fisher IG # 0.03 10e3/ul Normal 0.00-0.03 [facility] Comment on above: Performed By: #### L IPA, CMP, CRP, NAT #### [facility] [address] [place] [address] Dr. Keturah Fisher IG % 0.3 % Normal 0.0-0.5 [facility] Comment on above: Performed By: #### L IPA, CMP, CRP, NAT #### [facility] [address] [address] [address] Keturah Fisher LYMPH # 2.9 103/ul Normal 1.2-3.8 [facility] Comment on above: Performed By: #### L IPA, CMP, CRP, NAT #### [facility] [address] [address] [address] Keturah Fisher Lymphocytes/100 WBC (Bld) 25.0 % Normal 20.5-60.0 [facility] Comment on above: Performed By: #### L IPA, CMP, CRP, NAT #### [facility] [address] [place] [address] Dr. Keturah Fisher MANUAL DIFF REQ NO Normal [facility] Comment on above: Performed By: #### L IPA, CMP, CRP, NAT #### [facility] [address] [place] [address] Dr. Keturah Fisher MCH (RBC) [Entitic mass] 33.3 pg Normal 26.7-34.0 [facility] Comment on above: Performed By: #### L IPA, CMP, CRP, NAT #### [facility] [address] [place] [address] Dr. Keturah Fisher MCHC (RBC) [Mass/Vol] 34.3 g/dL Normal 29.9-35.2 [facility] Comment on above: Performed By: #### L IPA, CMP, CRP, NAT #### [facility] [address] [place] [address] Dr. Keturah Fisher MCV (RBC) [Entitic vol] 96.9 fL Normal 81.0-99.0 [facility] Comment on above: Performed By: #### L IPA, CMP, CRP, NAT #### [facility] [address] [place] [address] Dr. Keturah Fisher MONO # 0.7 103/ul Normal 0.3-0.8 [facility] Comment on above: Performed By: #### L IPA, CMP, CRP, NAT #### [facility] [address] [place] [address] Dr. Keturah Fisher Monocytes/100 WBC (Bld) 5.6 % Normal 1.7-12.0 [facility] Comment on above: Performed By: #### L IPA, CMP, CRP, NAT #### [facility] [address] [place] [address] Dr. Keturah Fisher NEUT # 7.8 103/ul Critically high 1.4-6.5 [facility] Comment on above: Performed By: #### L IPA, CMP, CRP, NAT #### [facility] [address] [place] [address] Dr. Keturah Fisher Neutrophils/100 WBC (Bld) 67.3 % Normal 43.0-75.0 [facility] Comment on above: Performed By: #### L IPA, CMP, CRP, NAT #### [facility] [address] [place] [address] Dr. Keturah Fisher Platelet mean volume (Bld) [Entitic vol] 9.5 fL Normal 9.5-13.5 [facility] Comment on above: Performed By: #### L IPA, CMP, CRP, NAT #### [facility] [address] [place] [address] Dr. Keturah Fisher PLT 227 103/ul Normal 150-450 [facility] Comment on above: Performed By: #### L IPA, CMP, CRP, NAT #### [facility] [address] [place] [address] Dr. Keturah Fisher RBC 4.18 106/ul Critically low 4.20-5.40 [facility] Comment on above: Performed By: #### L IPA, CMP, CRP, NAT #### [facility] [address] [place] [address] Dr. Keturah Fisher WBC 11.5 103/ul Critically high 4.0-11.0 [facility] Comment on above: Performed By: #### L IPA, CMP, CRP, NAT #### [facility] [address] [place] [address] Dr. Keturah Fisher LIPASEon 06-13-2022 Lipase [Catalytic activity/Vol] 168.0 U/L Normal 73.0-393.0 [facility] Comment on above: Performed By: #### L IPA, CMP, CRP, NAT #### [facility] [address] [place] [address] Dr. Keturah Fisher PROF 14(COMP METB)on 023 Albumin [Mass/Vol] 3.6 g/dL Normal 3.4-5.0 [facility] Comment on above: Performed By: #### L IPA, CMP, CRP, NAT #### [facility] [address] [place] [address] Dr. Keturah Fisher Albumin/Globulin [Mass ratio] 1.1 {ratio} Normal [facility] Comment on above: Performed By: #### L IPA, CMP, CRP, NAT #### [facility] [address] [place] [address] Dr. Keturah Fisher ALP [Catalytic activity/Vol] 132 U/L Critically high 46-116 [facility] Comment on above: Performed By: #### L IPA, CMP, CRP, NAT #### [facility] [address] [place] [address] Dr. Keturah Fisher ALT [Catalytic activity/Vol] 20 U/L Normal 14-59 [facility] Comment on above: Performed By: #### L IPA, CMP, CRP, NAT #### [facility] [address] [place] [address] Dr. Keturah Fisher Anion gap [Moles/Vol] 13.7 mmol/L Normal [facility] Comment on above: Performed By: #### L IPA, CMP, CRP, NAT #### [facility] [address] [place] [address] Dr. Keturah Fisher AST [Catalytic activity/Vol] 19 U/L Normal 15-37 [facility] Comment on above: Performed By: #### L IPA, CMP, CRP, NAT #### [facility] [address] [place] [address] Dr. Keturah Fisher Bilirubin [Mass/Vol] 0.1 mg/dL Critically low 0.2-1.0 [facility] Comment on above: Performed By: #### L IPA, CMP, CRP, NAT #### [facility] [address] [address] [address] Keturah Fisher Calcium [Mass/Vol] 10.1 mg/dL Normal 8.5-10.1 [facility] Comment on above: Performed By: #### L IPA, CMP, CRP, NAT #### [facility] [address] [place] [address] Dr. Keturah Fisher Chloride [Moles/Vol] 104 mmol/L Normal 98-107 [facility] Comment on above: Performed By: #### L IPA, CMP, CRP, NAT #### [facility] [address] [place] [address] Dr. Keturah Fisher CO2 [Moles/Vol] 26.7 mmol/L Normal 21.0-32.0 [facility] Comment on above: Performed By: #### L IPA, CMP, CRP, NAT #### [facility] [address] [place] [address] Dr. Keturah Fisher Creatinine [Mass/Vol] 0.83 mg/dL Normal 0.55-1.02 [facility] Comment on above: Performed By: #### L IPA, CMP, CRP, NAT #### [facility] [address] [place] [address] Dr. Keturah Fisher EGFR-AF MALTESE >60 Normal >=60 [facility] Comment on above: Performed By: #### L IPA, CMP, CRP, NAT #### [facility] [address] [place] [address] Dr. Keturah Fisher EGFR-NON AF MALTESE >60 Normal >=60 [facility] Comment on above: Performed By: #### L IPA, CMP, CRP, NAT #### [facility] [address] [place] [address] Dr. Keturah Fisher Globulin (S) [Mass/Vol] 3.4 g/dL Normal [facility] Comment on above: Performed By: #### L IPA, CMP, CRP, NAT #### [facility] [address] [place] [address] Dr. Keturah Fisher Glucose [Mass/Vol] 115 mg/dL Critically high 74-106 [facility] Comment on above: Performed By: #### L IPA, CMP, CRP, NAT #### [facility] [address] [address] [address] Keturah Fisher Potassium [Moles/Vol] 3.4 mmol/L Critically low 3.5-5.1 [facility] Comment on above: Performed By: #### L IPA, CMP, CRP, NAT #### [facility] [address] [address] [address] Keturah Fisher Protein [Mass/Vol] 7.0 g/dL Normal 6.4-8.2 [facility] Comment on above: Performed By: #### L IPA, CMP, CRP, NAT #### [facility] [address] [place] [address] Dr. Keturah Fisher Sodium [Moles/Vol] 141 mmol/L Normal 136-145 [facility] Comment on above: Performed By: #### L IPA, CMP, CRP, NAT #### [facility] [address] [place] [address] Dr. Keturah Fisher Urea nitrogen [Mass/Vol] 9.0 mg/dL Normal 7.0-18.0 [facility] Comment on above: Performed By: #### L IPA, CMP, CRP, NAT #### [facility] [address] [place] [address] Dr. Keturah Fisher Urea nitrogen/Creatinine [Mass ratio] 10.8 mg/mg Normal [facility] Comment on above: Performed By: #### L IPA, CMP, CRP, NAT #### [facility] [address] [place] [address] Dr. Keturah Fisher XR ABD FLAT UP_PA [...] ION KRUSE Date: 2022-06-13 17:10 Normal [facility] AMYLASEon 03-29-2022 Amylase [Catalytic activity/Vol] 141 U/L Critically high 25-115 [facility] Comment on above: Performed By: #### L IVER, LIPA, BMP, NAT ####[facility] [id number] [address]. Keturah Fisher CBC AUTO DIFFon 03-29-2022 BASO # 0.1 103/ul Normal 0.0-0.1 [facility] Comment on above: Performed By: #### L IPA, CMP, CRP, NAT #### [facility] [address] [address] [address] Keturah Fisher Basophils/100 WBC (Bld) 0.6 % Normal 0.2-2.0 [facility] Comment on above: Performed By: #### L IPA, CMP, CRP, NAT #### [facility] [address] [address] [address] Keturah Fisher EO # 0.1 103/ul Normal 0.0-0.7 [facility] Comment on above: Performed By: #### L IPA, CMP, CRP, NAT #### [facility] [address] [address] [address] Keturah Fisher Eosinophils/100 WBC (Bld) 0.7 % Critically low 0.9-7.0 [facility] Comment on above: Performed By: #### L IPA, CMP, CRP, NAT #### [facility] [address] [address] [address] Keturah Fisher Erythrocyte distribution width (RBC) [Ratio] 12.9 % Normal 11.0-15.0 [facility] Comment on above: Performed By: #### L IPA, CMP, CRP, NAT #### [facility] [address] [address] [address] Keturah Fisher Hematocrit (Bld) [Volume fraction] 39.7 % Normal 36.0-48.0 [facility] Comment on above: Performed By: #### L IPA, CMP, CRP, NAT #### [facility] [address] [place] [address] Dr. Keturah Fisher Hemoglobin (Bld) [Mass/Vol] 14.7 g/dL Normal 12.0-16.0 [facility] Comment on above: Performed By: #### L IPA, CMP, CRP, NAT #### [facility] [address] [place] [address] Dr. Keturah Fisher IG # 0.04 10e3/ul Critically high 0.00-0.03 [facility] Comment on above: Performed By: #### L IPA, CMP, CRP, NAT #### [facility] [address] [place] [address] Dr. Keturah Fisher IG % 0.4 % Normal 0.0-0.5 [facility] Comment on above: Performed By: #### L IPA, CMP, CRP, NAT #### [facility] [address] [place] [address] Dr. Keturah Fisher LYMPH # 2.1 103/ul Normal 1.2-3.8 [facility] Comment on above: Performed By: #### L IPA, CMP, CRP, NAT #### [facility] [address] [place] [address] Dr. Keturah Fisher Lymphocytes/100 WBC (Bld) 21.2 % Normal 20.5-60.0 [facility] Comment on above: Performed By: #### L IPA, CMP, CRP, NAT #### [facility] [address] [place] [address] Dr. Keturah Fisher MANUAL DIFF REQ NO Normal [facility] Comment on above: Performed By: #### L IPA, CMP, CRP, NAT #### [facility] [address] [place] [address] Dr. Keturah Fisher MCH (RBC) [Entitic mass] 33.0 pg Normal 26.7-34.0 [facility] Comment on above: Performed By: #### L IPA, CMP, CRP, NAT #### [facility] [address] [place] [address] Dr. Keturah Fisher MCHC (RBC) [Mass/Vol] 37.0 g/dL Critically high 29.9-35.2 [facility] Comment on above: Performed By: #### L IPA, CMP, CRP, NAT #### [facility] [address] [place] [address] Dr. Keturah Fisher MCV (RBC) [Entitic vol] 89.0 fL Normal 81.0-99.0 [facility] Comment on above: Performed By: #### L IPA, CMP, CRP, NAT #### [facility] [address] [place] [address] Dr. Keturah Fisher MONO # 1.0 103/ul Critically high 0.3-0.8 [facility] Comment on above: Performed By: #### L IPA, CMP, CRP, NAT #### [facility] [address] [place] [address] Dr. Keturah Fisher Monocytes/100 WBC (Bld) 10.3 % Normal 1.7-12.0 [facility] Comment on above: Performed By: #### L IPA, CMP, CRP, NAT #### [facility] [address] [place] [address] Dr. Keturah Fisher NEUT # 6.5 103/ul Normal 1.4-6.5 [facility] Comment on above: Performed By: #### L IPA, CMP, CRP, NAT #### [facility] [address] [place] [address] Dr. Keturah Fisher Neutrophils/100 WBC (Bld) 66.8 % Normal 43.0-75.0 [facility] Comment on above: Performed By: #### L IPA, CMP, CRP, NAT #### [facility] [address] [place] [address] Dr. Keturah Fisher Platelet mean volume (Bld) [Entitic vol] 9.2 fL Critically low 9.5-13.5 [facility] Comment on above: Performed By: #### L IPA, CMP, CRP, NAT #### [facility] [address] [place] [address] Dr. Keturah Fisher PLT 229 103/ul Normal 150-450 [facility] Comment on above: Performed By: #### L IPA, CMP, CRP, NAT #### [facility] [address] [address] [address] Keturah Fisher RBC 4.46 106/ul Normal 4.20-5.40 [facility] Comment on above: Performed By: #### L IPA, CMP, CRP, NAT #### [facility] [address] [address] [address] Keturah Fisher WBC 9.7 103/ul Normal 4.0-11.0 [facility] Comment on above: Performed By: #### L IPA, CMP, CRP, NAT #### [facility] [address] [address] [address] Keturah Fisher LACTATE/LACTIC ACIDon 2022 Lactate [Moles/Vol] 0.5 mmol/L Normal 0.4-1.9 [facility] Comment on above: Performed By: #### L IPA, CMP, CRP, NAT #### [facility] [address] [address] [address] Keturah Fisher LIPASEon 03-29-2022 Lipase [Catalytic activity/Vol] 308.0 U/L Normal 73.0-393.0 [facility] Comment on above: Performed By: #### L IVER, LIPA, BMP, NAT ####[facility] [address] [address]Dr. Keturah Fisher LIVER PROFILEon 03-29-2022 Albumin [Mass/Vol] 3.3 g/dL Critically low 3.4-5.0 [facility] Comment on above: Performed By: #### L IVER, LIPA, BMP, NAT ####[facility] [address] [id number]. Keturah Fisher Albumin/Globulin [Mass ratio] 0.8 {ratio} Normal [facility] Comment on above: Performed By: #### L IVER, LIPA, BMP, NAT ####[facility] [address] [id number]. Keutrah Fisher ALP [Catalytic activity/Vol] 182 U/L Critically high 46-116 [facility] Comment on above: Performed By: #### L IVER, LIPA, BMP, NAT ####[facility] [address] [address]Dr. Keturah Fisher ALT [Catalytic activity/Vol] 16 U/L Normal 14-59 [facility] Comment on above: Performed By: #### L IVER, LIPA, BMP, NAT ####[facility] [address] [address]Dr. Keturah Fisher AST [Catalytic activity/Vol] 26 U/L Normal 15-37 [facility] Comment on above: Performed By: #### L IVER, LIPA, BMP, NAT ####[facility] [address] [place], [place] [address]Dr. Keturah Fisher BILI, CONJUGATED 0.0 mg/dL Normal 0.0-0.2 [facility] Comment on above: Performed By: #### L IVER, LIPA, BMP, NAT ####[facility] [address] [place], [place] [address]Dr. Keturah Fisher Bilirubin [Mass/Vol] 0.3 mg/dL Normal 0.2-1.0 [facility] Comment on above: Performed By: #### L IVER, LIPA, BMP, NAT ####[facility] [address] [place], [place] [address]Dr. Keturah Fisher Globulin (S) [Mass/Vol] 3.9 g/dL Normal [facility] Comment on above: Performed By: #### L IVER, LIPA, BMP, NAT ####[facility] [address] [place], [place] [address]Dr. Keturah Fisher Protein [Mass/Vol] 7.2 g/dL Normal 6.4-8.2 [facility] Comment on above: Performed By: #### L IVER, LIPA, BMP, NAT ####[facility] [address] [place], [place] [address]Dr. Keturah Fisher PROF CHEM 8 (BAS METB)on Anion gap [Moles/Vol] 14.6 mmol/L Normal [facility] Comment on above: Performed By: #### L IVER, LIPA, BMP, NAT ####[facility] [address] [address]Dr. Keturah Fisher Calcium [Mass/Vol] 10.1 mg/dL Normal 8.5-10.1 [facility] Comment on above: Performed By: #### L IVER, LIPA, BMP, NAT ####[facility] [address] [address]Dr. Keturah Fisher Chloride [Moles/Vol] 104 mmol/L Normal 98-107 [facility] Comment on above: Performed By: #### L IVER, LIPA, BMP, NAT ####[facility] [address] [place], [place] [address]Dr. Keturah Fisher CO2 [Moles/Vol] 24.8 mmol/L Normal 21.0-32.0 The [facility] Comment on above: Performed By: #### L IVER, LIPA, BMP, NAT ####[facility] [address] [address]Dr. Keturah Fisher Creatinine [Mass/Vol] 0.61 mg/dL Normal 0.55-1.02 [facility] Comment on above: Performed By: #### L IVER, LIPA, BMP, NAT ####[facility] [address] [address]Dr. Keturah Fisher EGFR-AF MALTESE >60 Normal >=60 [facility] Comment on above: Performed By: #### L IVER, LIPA, BMP, NAT ####[facility] [address] [address]Dr. Keturah Fisher EGFR-NON AF MALTESE >60 Normal >=60 [facility] Comment on above: Performed By: #### L IVER, LIPA, BMP, NAT ####[facility] [address] [address]Dr. Keturah Fisher Glucose [Mass/Vol] 98 mg/dL Normal 74-106 [facility] Comment on above: Performed By: #### L IVER, LIPA, BMP, NAT ####[facility] [address] [place], [place] [address]Uo. Keturah Fisher Potassium [Moles/Vol] 4.4 mmol/L Normal 3.5-5.1 [facility] Comment on above: Performed By: #### L IVER, LIPA, BMP, NAT ####[facility] [address] [place], [place] [address]Sw. Keturah Fisher Sodium [Moles/Vol] 139 mmol/L Normal 136-145 [facility] Comment on above: Performed By: #### L IVER, LIPA, BMP, NAT ####[facility] [address] [id number]. Keturah Fisher Urea nitrogen [Mass/Vol] 7.0 mg/dL Normal 7.0-18.0 [facility] Comment on above: Performed By: #### L IVER, LIPA, BMP, NAT ####[facility] [address] [address]Dr. Keturah Fisher Urea nitrogen/Creatinine [Mass ratio] 11.5 mg/mg Normal [facility] Comment on above: Performed By: #### L IVER, LIPA, BMP, NAT ####[facility] [address] [address]Dr. Keturah Fisher Albumin [Mass/volume] in Ser um or PlasmaOrdered By: Agustin Llanes on 03-22-2022 Albumin [Mass/Vol] 4.1 g/dL 3.2-5.5 [facility] Automated erythrocytes count in urine sediment (number/area)Ordered By: Agustin Llanes on 03-22-2022 RBC Auto (Urine sed) [#/Area] 3-4 [HPF] 0-4 [facility] Automated leukocytes count i n urine sediment (number/area)Ordered By: Agustin Llanes on 03-22-2022 WBC Auto (Urine sed) [#/Area] 10-19 [HPF] 0-4 [facility] Basophils Auto (Bld) [#/Vol] Ordered By: Agustin Llanes on 03-22-2022 Basophils (Bld) [#/Vol] 0.1 10*3/uL 0.0-0.2 [facility] Basophils/100 WBC Auto (Bld) Ordered By: Agustin Llanes on 03-22-2022 Basophils/100 WBC (Bld) 0.9 % . [facility] Bilirubin Test strip Ql (U)O rdered By: Agustin Llanes on 03-22-2022 Bilirubin Ql (U) Negative Negative [facility] Color Auto (U)Ordered By: Vita Llanes on 03-22-2022 Color (U) Yellow Yellow [facility] Creatinine and Glomerular fi ltration rate.predicted panel (S/P/Bld)Ordered By: Agustin Llanes on 03-22-2022 Creatinine [Mass/Vol] 0.74 mg/dL 0.44-1.03 [facility] Direct bilirubin measurement Ordered By: Agustin Llanes on 03-22-2022 Bilirubin.direct [Mass/Vol] 0.3 mg/dL 0.0-0.4 [facility] Eosinophils Auto (Bld) [#/Vo l]Ordered By: Agustin Llanes on 03-22-2022 Eosinophils (Bld) [#/Vol] 0.1 10*3/uL 0.0-0.45 [facility] Eosinophils/100 WBC Auto (Bl d)Ordered By: Agustin Llanes on 03-22-2022 Eosinophils/100 WBC (Bld) 0.7 % . [facility] Erythrocyte distribution wid th Auto (RBC) [Ratio]Ordered By: Agustin Llanes on 03-22-2022 Erythrocyte distribution width (RBC) [Ratio] 13.9 % 11.9-15.3 [facility] Estimated glomerular filtrat ion rate (GFR) non- AmericanOrdered By: Agustin Llanes on 03-22-2022 GFR/1.73 sq M.predicted among non-blacks MDRD (S/P/Bld) [Vol rate/Area] > 60 mL/Min [facility] Globulin Calc (S) [Mass/Vol] Ordered By: Agustin Llanes on 03-22-2022 Globulin (S) [Mass/Vol] 3.1 g/dL [facility] HCG ( test) IA.rapi d Ql (U)Ordered By: Agustin Llanes on 03-22-2022 HCG ( test) Ql (U) Negative [facility] Hematocrit Auto (Bld) [Volum e fraction]Ordered By: Agustin Llanes on 03-22-2022 Hematocrit (Bld) [Volume fraction] 45.7 % 34.0-46.4 [facility] Hemoglobin [Mass/volume] in BloodOrdered By: Agustin Llanes on 03-22-2022 Hemoglobin (Bld) [Mass/Vol] 15.2 g/dL 11.8-15.4 [facility] Ketones Auto test strip (U) [Mass/Vol]Ordered By: Agustin Llanes on 03-22-2022 Ketones (U) [Mass/Vol] Negative Negative [facility] - Chemistry and C hemistry - challengeOrdered By: Agustin Llanes on 03-22-2022 Lipase [Catalytic activity/Vol] 122.0 U/L 22-51 [facility] - UrinalysisOrder ed By: Agustin Llanes on 03-22-2022 Hyaline casts LM Ql (Urine sed) 0-8 [LPF] 0-8 [facility] Leukocytes [#/volume] correc aurelia for nucleated erythrocytes in Blood by Automated counOrdered By: Agustin lLanes on 03-22-2022 WBC corrected for nucl RBC Auto (Bld) [#/Vol] 12.4 10*3/uL 3.8-11.6 [facility] Lymphocytes Auto (Bld) [#/Vo l]Ordered By: Agustin Llanes on 03-22-2022 Lymphocytes (Bld) [#/Vol] 2.2 10*3/uL 1.00-4.8 [facility] Lymphocytes/100 WBC Auto (Bl d)Ordered By: Agustin Llanes on 03-22-2022 Lymphocytes/100 WBC (Bld) 18.0 % . [facility] MCH Auto (RBC) [Entitic mass ]Ordered By: Agustin Llanes on 03-22-2022 MCH (RBC) [Entitic mass] 32.5 pg 24.7-34.3 [facility] MCHC Auto (RBC) [Mass/Vol]Or dered By: Agustin Llanes on 03-22-2022 MCHC (RBC) [Mass/Vol] 33.2 g/dL 32.0-35.0 [facility] MCV Auto (RBC) [Entitic vol] Ordered By: Agustin Llanes on 03-22-2022 MCV (RBC) [Entitic vol] 98.0 fL 80-100 [facility] Monocyte distribution width [Entitic volume] in Blood by AutomatedOrdered By: Agustin Llanes on 03-22-2022 Monocyte distribution width Auto (Bld) [Entitic vol] 18.78 % 0.00-20.00 [facility] Monocytes Auto (Bld) [#/Vol] Ordered By: Agustin Llanes on 03-22-2022 Monocytes (Bld) [#/Vol] 1.0 10*3/uL 0.0-0.8 [facility] Monocytes/100 WBC Auto (Bld) Ordered By: Agustin Llanes on 03-22-2022 Monocytes/100 WBC (Bld) 8.0 % . [facility] Neutrophils Auto (Bld) [#/Vo l]Ordered By: Agustin Llanes on 03-22-2022 Neutrophils (Bld) [#/Vol] 9.0 10*3/uL 1.8-7.7 [facility] Neutrophils/100 WBC Auto (Bl d)Ordered By: Agustin Llanes on 03-22-2022 Neutrophils/100 WBC (Bld) 72.4 % . [facility] Nitrite Test strip Ql (U)Ord ered By: Agustin Llanes on 03-22-2022 Nitrite Ql (U) Positive Negative [facility] No Panel InformationOrdered By: Agustin Llanes on 03-22-2022 Estimated GFR () > 60 mL/Min [facility] Comment on above: GFR estimated refere nce range: According to KDOQI guidelines, <60 ml/min/1.73m2 is sufficient to diagnose a patient with chronic kidney disease. Pharmacy Creatinine Clearance (Chem 70.34 [facility] Nucleated erythrocytes [Pres ence] in Blood by Automated countOrdered By: Agustin Llanes on 03-22-2022 Nucleated RBC Auto Ql (Bld) 0.0 /100{WBC} 0-0.5 [facility] Platelet mean volume Auto (B ld) [Entitic vol]Ordered By: Agustin Llanes on 03-22-2022 Platelet mean volume (Bld) [Entitic vol] 8.0 fL 6.3-10.7 [facility] Platelets Auto (Bld) [#/Vol] Ordered By: Agustin Llanes on 03-22-2022 Platelets (Bld) [#/Vol] 266 10*3/uL 150-450 [facility] Protein Auto test strip (U) [Mass/Vol]Ordered By: Agustin Llanes on 03-22-2022 Protein (U) [Mass/Vol] Negative Negative [facility] Protein [Mass/volume] in Ser um or PlasmaOrdered By: Agustin Llanes on 03-22-2022 Protein [Mass/Vol] 7.2 g/dL 6.1-7.9 [facility] RBC Auto (Bld) [#/Vol]Ordere d By: Agustin Llanes on 03-22-2022 RBC (Bld) [#/Vol] 4.67 10*6/uL 3.60-5.00 [facility] Serum or plasma alanine hughes otransferase measurement without P-5'-P (enzymatic activiOrdered By: Agustin Llanes on 03-22-2022 ALT No additional P-5'-P [Catalytic activity/Vol] 19 U/L 10-60 [facility] Serum or plasma albumin/glob ulin mass ratioOrdered By: Agustin Llanes on 03-22-2022 Albumin/Globulin [Mass ratio] 1.3 {ratio} [facility] Serum or plasma alkaline jaqueline sphatase measurement (enzymatic activity/volume)Ordered By: Agustin Llanes on 03-22-2022 ALP [Catalytic activity/Vol] 156 U/L 32-92 [facility] Serum or plasma anion gap de terminationOrdered By: Agustin Llanes on 03-22-2022 Anion gap [Moles/Vol] 12.6 mmol/L 6.0-15.0 [facility] Serum or plasma aspartate am inotransferase measurement (enzymatic activity/volume)Ordered By: Agustin Llanes on 03-22-2022 AST [Catalytic activity/Vol] 29 U/L 10-42 [facility] Serum or plasma calcium priscilla urement (mass/volume)Ordered By: Agustin Llanes on 03-22-2022 Calcium [Mass/Vol] 9.9 mg/dL 8.2-10.2 [facility] Serum or plasma chloride daron surement (moles/volume)Ordered By: Agustin Llanes on 03-22-2022 Chloride [Moles/Vol] 103 mmol/L 95-114 [facility] Serum or plasma glucose priscilla urement (mass/volume)Ordered By: Agustin Llanes on 03-22-2022 Glucose [Mass/Vol] 106 mg/dL 70-100 [facility] Comment on above: ADA recommended refe rence rangeRandom Glucose Reference Range is dependent on time and content of last meal. Glucose of more than 200 mg/dL in a nonstressed, ambulatory subject supports the diagnosis of Diabetes Mellitus. Serum or plasma non-glucuron idated bilirubin measurement (mass/volume)Ordered By: Agustin Llanes on 03-22-2022 Bilirubin.indirect [Mass/Vol] 0.2 mg/dL [facility] Serum or plasma potassium me asurement (moles/volume)Ordered By: Agustin Llanes on 03-22-2022 Potassium [Moles/Vol] 4.5 mmol/L 3.5-5.1 [facility] Serum or plasma sodium measu rement (moles/volume)Ordered By: Agustin Llanes on 03-22-2022 Sodium [Moles/Vol] 138 mmol/L 136-146 [facility] Serum or plasma total biliru bin measurement (mass/volume)Ordered By: Agustin Llanes on 03-22-2022 Bilirubin [Mass/Vol] 0.5 mg/dL 0.3-1.2 [facility] Serum or plasma total carbon dioxide measurement (moles/volume)Ordered By: Agustin Llanes on 03-22-2022 CO2 [Moles/Vol] 26.9 mmol/L 22.0-30.0 [facility] Serum or plasma urea nitroge n measurement (mass/volume)Ordered By: Agustin Llanes on 03-22-2022 Urea nitrogen [Mass/Vol] 8 mg/dL 9-23 [facility] Specific gravity Auto test s trip (U) [Rel density]Ordered By: Agustin Llanes on 03-22-2022 Specific gravity (U) [Rel density] 1.011 1.001-1.03 0 [facility] Squamous epithelial cells de tection in urine sediment by light microscopyOrdered By: Agustin Llanes on 03-22-2022 Epithelial cells.squamous LM Ql (Urine sed) 1-2 [HPF] 0-2 [facility] Urine bacteria detection by automated methodOrdered By: Agustin Llanes on 03-22-2022 Bacteria Auto Ql (U) 1+ None Seen [facility] Urine clarity by refractomet ry automatedOrdered By: Agustin Llanes on 03-22-2022 Clarity Refractometry automated (U) Clear Clear [facility] Urine glucose measurement by automated test strip (mass/volume)Ordered By: Agustin Llanes on 03-22-2022 Glucose Auto test strip (U) [Mass/Vol] Normal mg/dL Normal [facility] Urine hemoglobin detection b y automated test stripOrdered By: Agustin Llanes on 03-22-2022 Hemoglobin Auto test strip Ql (U) Negative Negative [facility] Urine leukocyte esterase det ection by automated test stripOrdered By: Agustin Llanes on 03-22-2022 Leukocyte esterase Auto test strip Ql (U) 2+ Negative [facility] Urobilinogen Auto test strip (U) [Mass/Vol]Ordered By: Agustin Llanes on 03-22-2022 Urobilinogen (U) [Mass/Vol] Normal mg/dL Normal [facility] WBC Auto (Bld) [#/Vol]Ordere d By: Agustin Llanes on 03-22-2022 WBC (Bld) [#/Vol] 12.4 10*3/uL 3.8-11.6 [facility] pH Auto test strip (U)Ordere d By: Agustin Llanes on 03-22-2022 pH (U) 5.5 [pH] 5.0-9.0 [facility] AMYLASEon 03-19-2022 Amylase [Catalytic activity/Vol] 297 U/L Critically high 25-115 [facility] Comment on above: Performed By: #### L IPA, CMP, CRP, NAT #### [facility] [address] [place], [place] [address] Dr. Keturah Fisher CBC AUTO DIFFon 03-19-2022 BASO # 0.1 103/ul Normal 0.0-0.1 [facility] Comment on above: Performed By: #### L IPA, CMP, CRP, NAT #### [facility] [address] [place], [place] [address] Dr. Keturah Fisher Basophils/100 WBC (Bld) 0.6 % Normal 0.2-2.0 [facility] Comment on above: Performed By: #### L IPA, CMP, CRP, NAT #### [facility] [address] [place] [address] Dr. Keturah Fisher EO # 0.1 103/ul Normal 0.0-0.7 [facility] Comment on above: Performed By: #### L IPA, CMP, CRP, NAT #### [facility] [address] [place] [address] Dr. Keturah Fisher Eosinophils/100 WBC (Bld) 0.5 % Critically low 0.9-7.0 [facility] Comment on above: Performed By: #### L IPA, CMP, CRP, NAT #### [facility] [address] [place] [address] Dr. Keturah Fisher Erythrocyte distribution width (RBC) [Ratio] 13.4 % Normal 11.0-15.0 [facility] Comment on above: Performed By: #### L IPA, CMP, CRP, NAT #### [facility] [address] [place] [address] Dr. Keturah Fisher Hemoglobin (Bld) [Mass/Vol] 15.7 g/dL Normal 12.0-16.0 [facility] Comment on above: Performed By: #### L IPA, CMP, CRP, NAT #### [facility] [address] [place] [address] Dr. Keturah Fisher IG # 0.06 10e3/ul Critically high 0.00-0.03 [facility] Comment on above: Performed By: #### L IPA, CMP, CRP, NAT #### [facility] [address] [place] [address] Dr. Keturah Fisher IG % 0.4 % Normal 0.0-0.5 [facility] Comment on above: Performed By: #### L IPA, CMP, CRP, NAT #### [facility] [address] [place] [address] Dr. Keturah Fisher LYMPH # 2.6 103/ul Normal 1.2-3.8 [facility] Comment on above: Performed By: #### L IPA, CMP, CRP, NAT #### [facility] [address] [place] [address] Dr. Keturah Fisher Lymphocytes/100 WBC (Bld) 18.1 % Critically low 20.5-60.0 [facility] Comment on above: Performed By: #### L IPA, CMP, CRP, NAT #### [facility] [address] [place] [address] Dr. Keturah Fisher MANUAL DIFF REQ NO Normal [facility] Comment on above: Performed By: #### L IPA, CMP, CRP, NAT #### [facility] [address] [place] [address] Dr. Keturah Fisher MCH (RBC) [Entitic mass] 32.4 pg Normal 26.7-34.0 [facility] Comment on above: Performed By: #### L IPA, CMP, CRP, NAT #### [facility] [address] [place] [address] Dr. Keturah Fisher MCHC (RBC) [Mass/Vol] 32.5 g/dL Normal 29.9-35.2 [facility] Comment on above: Performed By: #### L IPA, CMP, CRP, NAT #### [facility] [address] [place] [address] Dr. Keturah Fisher MCV (RBC) [Entitic vol] 99.8 fL Critically high 81.0-99.0 [facility] Comment on above: Performed By: #### L IPA, CMP, CRP, NAT #### [facility] [address] [place] [address] Dr. Keturah Fisher MONO # 0.9 103/ul Critically high 0.3-0.8 [facility] Comment on above: Performed By: #### L IPA, CMP, CRP, NAT #### [facility] [address] [place] [address] Dr. Keturah Fisher Monocytes/100 WBC (Bld) 5.9 % Normal 1.7-12.0 [facility] Comment on above: Performed By: #### L IPA, CMP, CRP, NAT #### [facility] [address] [place] [address] Dr. Keturah Fisher NEUT # 10.8 103/ul Critically high 1.4-6.5 [facility] Comment on above: Performed By: #### L IPA, CMP, CRP, NAT #### [facility] [address] [place] [address] Dr. Keturah Fisher Neutrophils/100 WBC (Bld) 74.5 % Normal 43.0-75.0 [facility] Comment on above: Performed By: #### L IPA, CMP, CRP, NAT #### [facility] [address] [place] [address] Dr. Keturah Fisher Platelet mean volume (Bld) [Entitic vol] 9.7 fL Normal 9.5-13.5 [facility] Comment on above: Performed By: #### L IPA, CMP, CRP, NAT #### [facility] [address] [place] [address] Dr. Keturah Fisher PLT 279 103/ul Normal 150-450 [facility] Comment on above: Performed By: #### L IPA, CMP, CRP, NAT #### [facility] [address] [place] [address] Dr. Keturah Fisher RBC 4.84 106/ul Normal 4.20-5.40 [facility] Comment on above: Performed By: #### L IPA, CMP, CRP, NAT #### [facility] [address] [place] [address] Dr. Keturah Fisher WBC 14.5 103/ul Critically high 4.0-11.0 [facility] Comment on above: Performed By: #### L IPA, CMP, CRP, NAT #### [facility] [address] [place] [address] ABD/PELVIS WO CONon [...] AGUSTIN HIGHTOWER Date: 2022-03-19 19:10 Normal [facility] LIPASEon 03-19-2022 Lipase [Catalytic activity/Vol] 1573.0 U/L Critically high 73.0-393.0 [facility] Comment on above: Performed By: #### L IPA, CMP, CRP, NAT #### [facility] [address] [place] [address] Dr. Keturah Fisher PROF 14(COMP METB)on 023 Albumin [Mass/Vol] 4.3 g/dL Normal 3.4-5.0 [facility] Comment on above: Performed By: #### L IPA, CMP, CRP, NAT #### [facility] [address] [address] [address] Keturah Fisher Albumin/Globulin [Mass ratio] 1.1 {ratio} Normal [facility] Comment on above: Performed By: #### L IPA, CMP, CRP, NAT #### [facility] [address] [address] [address] Keturah Fisher ALP [Catalytic activity/Vol] 222 U/L Critically high 46-116 [facility] Comment on above: Performed By: #### L IPA, CMP, CRP, NAT #### [facility] [address] [address] [address] Keturah Fisher ALT [Catalytic activity/Vol] 18 U/L Normal 14-59 [facility] Comment on above: Performed By: #### L IPA, CMP, CRP, NAT #### [facility] [address] [place] [address] Dr. Keturah Fisher Anion gap [Moles/Vol] 10.7 mmol/L Normal [facility] Comment on above: Performed By: #### L IPA, CMP, CRP, NAT #### [facility] [address] [address] [address] Keturah Fisher AST [Catalytic activity/Vol] 19 U/L Normal 15-37 [facility] Comment on above: Performed By: #### L IPA, CMP, CRP, NAT #### [facility] [address] [address] [address] Keturah Fisher Bilirubin [Mass/Vol] 0.2 mg/dL Normal 0.2-1.0 [facility] Comment on above: Performed By: #### L IPA, CMP, CRP, NAT #### [facility] [address] [address] [address] Keturah Fisher Calcium [Mass/Vol] 10.2 mg/dL Critically high 8.5-10.1 [facility] Comment on above: Performed By: #### L IPA, CMP, CRP, NAT #### [facility] [address] [address] [address] Keturah Fisher Chloride [Moles/Vol] 101 mmol/L Normal 98-107 [facility] Comment on above: Performed By: #### L IPA, CMP, CRP, NAT #### [facility] [address] [address] [address] Keturah Fisher CO2 [Moles/Vol] 29.1 mmol/L Normal 21.0-32.0 [facility] Comment on above: Performed By: #### L IPA, CMP, CRP, NAT #### [facility] [address] [place] [address] Dr. Keturah Fisher Creatinine [Mass/Vol] 0.73 mg/dL Normal 0.55-1.02 [facility] Comment on above: Performed By: #### L IPA, CMP, CRP, NAT #### [facility] [address] [place] [address] Dr. Keturah Fisher EGFR-AF MALTESE >60 Normal >=60 [facility] Comment on above: Performed By: #### L IPA, CMP, CRP, NAT #### [facility] [address] [place] [address] Dr. Keturah Fisher EGFR-NON AF MALTESE >60 Normal >=60 [facility] Comment on above: Performed By: #### L IPA, CMP, CRP, NAT #### [facility] [address] [place] [address] Dr. Keturah Fisher Globulin (S) [Mass/Vol] 4.0 g/dL Normal [facility] Comment on above: Performed By: #### L IPA, CMP, CRP, NAT #### [facility] [address] [address] [address] Keturah Fisher Glucose [Mass/Vol] 92 mg/dL Normal 74-106 [facility] Comment on above: Performed By: #### L IPA, CMP, CRP, NAT #### [facility] [address] [place] [address] Dr. Keturah Fisher Potassium [Moles/Vol] 3.8 mmol/L Normal 3.5-5.1 [facility] Comment on above: Performed By: #### L IPA, CMP, CRP, NAT #### [facility] [address] [place], [place] [id number] Dr. Keturah Fisher Protein [Mass/Vol] 8.3 g/dL Critically high 6.4-8.2 [facility] Comment on above: Performed By: #### L IPA, CMP, CRP, NAT #### [facility] [address] [address] [address] Keturah Fisher Sodium [Moles/Vol] 137 mmol/L Normal 136-145 [facility] Comment on above: Performed By: #### L IPA, CMP, CRP, NAT #### [facility] [address] [address] [address] Keturah Fisher Urea nitrogen [Mass/Vol] 10.0 mg/dL Normal 7.0-18.0 [facility] Comment on above: Performed By: #### L IPA, CMP, CRP, NAT #### [facility] [address] [place] [address] Dr. Keturah Fisher Urea nitrogen/Creatinine [Mass ratio] 13.7 mg/mg Normal [facility] Comment on above: Performed By: #### L IPA, CMP, CRP, NAT #### [facility] [address] [address] [address] Keturah Fisher PROTIMEon 03-19-2022 INR Coag (PPP) [Relative time] {INR} Normal [facility] Comment on above: Performed By: #### P TT, PT ####[facility] [address] [address]DrGopal Fisher INR GUIDELINES SEE BELOW Normal [facility] Comment on above: Result Comment: KARLY RED INR: 2.0 - 3.0 CONDITIONS NOT LISTED BELOW 2.5 - 3.5 FOR PROSTHETIC HEART VALVE REPLACEMENT 2.5 - 3.5 RECURRENT THROMBOSIS Performed By: #### P TT, PT ####[facility] [address] [address]Dr. Keturah Fisher PT Coag (PPP) [Time] 9.4 s Normal 9.0-11.6 [facility] Comment on above: Performed By: #### P TT, PT ####[facility] [address] [address]DrGopal Fisher PTTon 03-19-2022 aPTT Coag (Bld) [Time] 26.1 s Normal 22.3-36.2 [facility] Comment on above: Performed By: #### P TT, PT ####[facility] [address] [place], [place] [address]TfGopal Keturah Fisher TROPONIN, HIGH SENSITIVITYon 03-19-2022 HSTROP 4.0 pg/mL Normal 4.0-51.3 [facility] Comment on above: Result Comment: CUT- OFF POINTS HAVE BEEN ESTABLISHED BASED ON THE FOURTH UNIVERSAL DEFINITIONS OF MYOCARDIAL INFARCTION. THE UPPER REFERENCE LIMIT (URL) OF TROPONIN, DEFINED THE 99TH PERCENTILE OF cTnI DISTRIBUTION IN A REFERENCE POPULATION, HAS BEEN CONFIRMED THE DECISION THRESHOLD FOR OK DIAGNOSIS. Performed By: #### L IPA, CMP, CRP, NAT #### [facility] [address] [place], [place] [address] Dr. 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 Mental Status [...] si (more content not included)... LAB, [facility] Radiology Study observation (narrative) [facility] BONE DENSITY AXIAL (HIP, PEL [...] interpreted this study is a Certified Clinical Inpatient Services Director by the International Society of Clinical Densitometry Maulik Reed M.D., CCD. OLOGY EXAM: BONE DENSITY A XIAL (HIP, PELVIS, SPINE) 01/27/2022 15:34 PM TECHNIQUE: DXA scanning using a [employer]ek[employer] Advance bone densitometer at the [facility] was performed on 01/27/2022 15:34 [...] 15:34 PM TECHNIQUE: DXA scanning using a MATINAS BIOPHARMA bone densitometer at the [facility] was performed on 01/27/2022 15:34 [...] interpreted this study is a Certified Clinical Inpatient Services Director by the International Society of Clinical Densitometry Maulik Reed M.D., CCD. [facility] Radiology Study observation (narrative) [facility] BONE DENSITY AXIAL (HIP, PEL VIS, SPINE)Ordered By: Maulik Reed on 01-27-2022 [facility] Work Phone: CBC AUTO DIFFon 01-15-2022 BASO # 0.1 103/ul Normal 0.0-0.1 [facility] Comment on above: Performed By: #### C BC ####[facility] [address] [address]Dr. Keturah Fisher Basophils/100 WBC (Bld) 0.9 % Normal 0.2-2.0 [facility] Comment on above: Performed By: #### C BC ####[facility] [address] [address]DrGopal Fisher EO # 0.2 103/ul Normal 0.0-0.7 [facility] Comment on above: Performed By: #### C BC ####[facility] [address] [address]Dr. Keturah Fisher Eosinophils/100 WBC (Bld) 2.8 % Normal 0.9-7.0 [facility] Comment on above: Performed By: #### C BC ####[facility] [address] [place], [place] [address]DrGopal Fisher Erythrocyte distribution width (RBC) [Ratio] 12.9 % Normal 11.0-15.0 [facility] Comment on above: Performed By: #### C BC ####[facility] [address] [place], [place] [address]DrGopal Fisher Hematocrit (Bld) [Volume fraction] 41.7 % Normal 36.0-48.0 [facility] Comment on above: Performed By: #### C BC ####[facility] [address] [address]Dr. Keturah Fisher Hemoglobin (Bld) [Mass/Vol] 14.0 g/dL Normal 12.0-16.0 [facility] Comment on above: Performed By: #### C BC ####[facility] [address] [address]Dr. Keturah Fisher IG # 0.01 10e3/ul Normal 0.00-0.03 [facility] Comment on above: Performed By: #### C BC ####[facility] [address] [address]Dr. Keturah Fisher IG % 0.1 % Normal 0.0-0.5 [facility] Comment on above: Performed By: #### C BC ####[facility] [address] [place], [place] [address]Dr. Keturah Phillip LYMPH # 2.4 103/ul Normal 1.2-3.8 [facility] Comment on above: Performed By: #### C BC ####[facility] [address] [place], [place] [address]Dr. Keturah Phillip Lymphocytes/100 WBC (Bld) 32.0 % Normal 20.5-60.0 [facility] Comment on above: Performed By: #### C BC ####[facility] [address] [address]Dr. Elisaeli Fisher MANUAL DIFF REQ NO Normal [facility] Comment on above: Performed By: #### C BC ####[facility] [address] [address]Dr. Keturah Fisher MCH (RBC) [Entitic mass] 32.6 pg Normal 26.7-34.0 [facility] Comment on above: Performed By: #### C BC ####[facility] [address] [address]Dr. Elisaeli Fisher MCHC (RBC) [Mass/Vol] 33.6 g/dL Normal 29.9-35.2 [facility] Comment on above: Performed By: #### C BC ####[facility] [address] [id number]. Keturah Fisher MCV (RBC) [Entitic vol] 97.0 fL Normal 81.0-99.0 [facility] Comment on above: Performed By: #### C BC ####[facility] [address] [address]Dr. Keturah Fisher MONO # 0.7 103/ul Normal 0.3-0.8 [facility] Comment on above: Performed By: #### C BC ####[facility] [address] [place], [place] [address]Dr. Keturah Phillip Monocytes/100 WBC (Bld) 9.5 % Normal 1.7-12.0 [facility] Comment on above: Performed By: #### C BC ####[facility] [address] [place], [place] [address]Dr. Keturah Fisher NEUT # 4.1 103/ul Normal 1.4-6.5 [facility] Comment on above: Performed By: #### C BC ####[facility] [address] [place], [place] [address]Dr. Elisaeli Fisher Neutrophils/100 WBC (Bld) 54.7 % Normal 43.0-75.0 [facility] Comment on above: Performed By: #### C BC ####[facility] [address] [place], [place] [address]Dr. Keturah Phillip Platelet mean volume (Bld) [Entitic vol] 9.6 fL Normal 9.5-13.5 [facility] Comment on above: Performed By: #### C BC ####[facility] [address] [place], [place] [address]Dr. Keturah Fisher PLT 235 103/ul Normal 150-450 [facility] Comment on above: Performed By: #### C BC ####[facility] [address] [address]Dr. Keturah Fisher RBC 4.30 106/ul Normal 4.20-5.40 [facility] Comment on above: Performed By: #### C BC ####[facility] [address] [address]Dr. Keturah Fisher WBC 7.6 103/ul Normal 4.0-11.0 [facility] Comment on above: Performed By: #### C BC ####[facility] [address] [address]Dr. Keturah Fisher ER URINE PROFILEon 2 Bilirubin Ql (U) Negative Normal NEGATIVE [facility] Comment on above: Performed By: #### L IPA, CMP, CRP, NAT #### [facility] [address] [address] [address] Keturah Fisher Clarity (U) CLEAR Normal CLEAR [facility] Comment on above: Performed By: #### L IPA, CMP, CRP, NAT #### [facility] [address] [address] [address] Keturah Fisher Color (U) YELLOW Normal YELLOW [facility] Comment on above: Performed By: #### L IPA, CMP, CRP, NAT #### [facility] [address] [address] [address] Keturah Fisher ERUAHGarfield A micrscopic examina tion will be performed if indicated. Normal [facility] Comment on above: Performed By: #### L IPA, CMP, CRP, NAT #### [facility] [address] [address] [address] Keturah Fisher Glucose Ql (U) Negative Normal NEGATIVE [facility] Comment on above: Performed By: #### L IPA, CMP, CRP, NAT #### [facility] [address] [address] [address] Keturah Fisher Hemoglobin Ql (U) Negative Normal NEGATIVE [facility] Comment on above: Performed By: #### L IPA, CMP, CRP, NAT #### [facility] [address] [address] [address] Keturah Fisher Ketones Ql (U) Negative Normal NEGATIVE [facility] Comment on above: Performed By: #### L IPA, CMP, CRP, NAT #### [facility] [address] [place] [address] Dr. Keturah Fisher LEUKOCYTES Negative Normal NEGATIVE [facility] Comment on above: Performed By: #### L IPA, CMP, CRP, NAT #### [facility] [address] [address] [address] Keturah Fisher Nitrite Ql (U) Negative Normal NEGATIVE [facility] Comment on above: Performed By: #### L IPA, CMP, CRP, NAT #### [facility] [address] [address] [address] Keturah Fisher pH (U) 5.5 [pH] Normal 5-9 [facility] Comment on above: Performed By: #### L IPA, CMP, CRP, NAT #### [facility] [address] [place] [address] Dr. Keturah Fisher SPEC GRAVITY >=1.030 Abnormal 1.005-<=1. 025 [facility] Comment on above: Performed By: #### L IPA, CMP, CRP, NAT #### [facility] [address] [place] [address] Dr. Keturah Fisher UA PROTEIN Negative Normal NEGATIVE/ TRACE [facility] Comment on above: Performed By: #### L IPA, CMP, CRP, NAT #### [facility] [address] [place] [address] Dr. Keturah Fisher UR MICRO IND NOT INDICATED Normal [facility] Comment on above: Performed By: #### L IPA, CMP, CRP, NAT #### [facility] [address] [place] [address] Dr. Keturah Fisher Urobilinogen Qn (U) 0.2 {Marizol'U}/dL Normal 0.2 - 1. 0 [facility] Comment on above: Performed By: #### L IPA, CMP, CRP, NAT #### [facility] [address] [place] [address] Dr. Keturah Fisher LIPASEon 01-15-2022 Lipase [Catalytic activity/Vol] 572.0 U/L Critically high 73.0-393.0 [facility] Comment on above: Performed By: #### C BC #### [facility] [address] [address] [address] Keturah Fisher URon 01-15-2022 , QUAL Negative Normal NEGATIVE [facility] Comment on above: Performed By: #### L IPA, CMP, CRP, NAT #### [facility] [address] [address] [address] Keturah Fisher PROF 14(COMP METB)on 022 Albumin [Mass/Vol] 3.8 g/dL Normal 3.4-5.0 [facility] Comment on above: Performed By: #### C BC #### [facility] [address] [address] [address] Keturah Fisher Albumin/Globulin [Mass ratio] 1.1 {ratio} Normal [facility] Comment on above: Performed By: #### C BC #### [facility] [address] [place] [address] Dr. Keturah Fisher ALP [Catalytic activity/Vol] 151 U/L Critically high 46-116 [facility] Comment on above: Performed By: #### C BC #### [facility] [address] [address] [address] Keturah Fisher ALT [Catalytic activity/Vol] 14 U/L Normal 14-59 [facility] Comment on above: Performed By: #### C BC #### [facility] [address] [place] [address] Dr. Keturah Fisher Anion gap [Moles/Vol] 5.5 mmol/L Normal [facility] Comment on above: Performed By: #### C BC #### [facility] [address] [place] [address] Dr. Keturah Fisher AST [Catalytic activity/Vol] 16 U/L Normal 15-37 [facility] Comment on above: Performed By: #### C BC #### [facility] [address] [place] [address] Dr. Keturah Fisher Bilirubin [Mass/Vol] 0.1 mg/dL Critically low 0.2-1.0 [facility] Comment on above: Performed By: #### C BC #### [facility] [address] [address] [address] Keturah Fisher Calcium [Mass/Vol] 9.5 mg/dL Normal 8.5-10.1 [facility] Comment on above: Performed By: #### C BC #### [facility] [address] [address] [address] Keturah Fisher Chloride [Moles/Vol] 105 mmol/L Normal 98-107 [facility] Comment on above: Performed By: #### C BC #### [facility] [address] [place] [address] Dr. Keturah Fisher CO2 [Moles/Vol] 30.0 mmol/L Normal 21.0-32.0 [facility] Comment on above: Performed By: #### C BC #### [facility] [address] [place] [address] Dr. Keturah Fisher Creatinine [Mass/Vol] 0.90 mg/dL Normal 0.55-1.02 [facility] Comment on above: Performed By: #### C BC #### [facility] [address] [place] [address] Dr. Keturah Fisher EGFR-AF MALTESE >60 Normal >=60 [facility] Comment on above: Performed By: #### C BC #### [facility] [address] [place] [address] Dr. Keturah Fisher EGFR-NON AF MALTESE >60 Normal >=60 [facility] Comment on above: Performed By: #### C BC #### [facility] [address] [address] [address] Keturah Fisher Globulin (S) [Mass/Vol] 3.4 g/dL Normal [facility] Comment on above: Performed By: #### C BC #### [facility] [address] [place] [address] Dr. Keturah Fisher Glucose [Mass/Vol] 82 mg/dL Normal 74-106 [facility] Comment on above: Performed By: #### C BC #### [facility] [address] [place] [address] Dr. Keturah Fisher Potassium [Moles/Vol] 3.5 mmol/L Normal 3.5-5.1 [facility] Comment on above: Performed By: #### C BC #### [facility] [address] [place] [address] Dr. Keturah Fisher Protein [Mass/Vol] 7.2 g/dL Normal 6.4-8.2 [facility] Comment on above: Performed By: #### C BC #### [facility] [address] [place] [address] Dr. Keturah Fisher Sodium [Moles/Vol] 137 mmol/L Normal 136-145 [facility] Comment on above: Performed By: #### C BC #### [facility] [address] [place] [address] Dr. Keturah Fisher Urea nitrogen [Mass/Vol] 12.0 mg/dL Normal 7.0-18.0 [facility] Comment on above: Performed By: #### C BC #### [facility] [address] [place] [address] Dr. Keturah Fisher Urea nitrogen/Creatinine [Mass ratio] 13.3 mg/mg Normal [facility] Comment on above: Performed By: #### C BC #### [facility] [address] [place] [address] Dr. Keturah Fisher AMYLASEon 12-13-2021 Amylase [Catalytic activity/Vol] 268 U/L Critically high 25-115 [facility] Comment on above: Performed By: #### L IPA, CMP, CRP, NAT #### [facility] [address] [place] [address] Dr. Keturah Fisher CBC AUTO DIFFon 12-13-2021 BASO # 0.1 103/ul Normal 0.0-0.1 [facility] Comment on above: Performed By: #### L IPA, CMP, CRP, NAT #### [facility] [address] [place] [address] Dr. Keturah Fisher Basophils/100 WBC (Bld) 0.6 % Normal 0.2-2.0 [facility] Comment on above: Performed By: #### L IPA, CMP, CRP, NAT #### [facility] [address] [place] [address] Dr. Keturah Fisher EO # 0.1 103/ul Normal 0.0-0.7 [facility] Comment on above: Performed By: #### L IPA, CMP, CRP, NAT #### [facility] [address] [place] [address] Dr. Keturah Fisher Eosinophils/100 WBC (Bld) 1.2 % Normal 0.9-7.0 [facility] Comment on above: Performed By: #### L IPA, CMP, CRP, NAT #### [facility] [address] [place] [address] Dr. Keturah Fisher Erythrocyte distribution width (RBC) [Ratio] 13.2 % Normal 11.0-15.0 [facility] Comment on above: Performed By: #### L IPA, CMP, CRP, NAT #### [facility] [address] [place] [address] Dr. Keturah Fisher Hematocrit (Bld) [Volume fraction] 44.7 % Normal 36.0-48.0 [facility] Comment on above: Performed By: #### L IPA, CMP, CRP, NAT #### [facility] [address] [place] [address] Dr. Keturah Fisher Hemoglobin (Bld) [Mass/Vol] 14.7 g/dL Normal 12.0-16.0 [facility] Comment on above: Performed By: #### L IPA, CMP, CRP, NAT #### [facility] [address] [place] [address] Dr. Keturah Fisher IG # 0.03 10e3/ul Normal 0.00-0.03 [facility] Comment on above: Performed By: #### L IPA, CMP, CRP, NAT #### [facility] [address] [place] [address] Dr. Keturah Fisher IG % 0.3 % Normal 0.0-0.5 [facility] Comment on above: Performed By: #### L IPA, CMP, CRP, NAT #### [facility] [address] [place] [address] Dr. Keturah Fisher LYMPH # 3.6 103/ul Normal 1.2-3.8 [facility] Comment on above: Performed By: #### L IPA, CMP, CRP, NAT #### [facility] [address] [place] [address] Dr. Keturah Fisher Lymphocytes/100 WBC (Bld) 32.7 % Normal 20.5-60.0 [facility] Comment on above: Performed By: #### L IPA, CMP, CRP, NAT #### [facility] [address] [place] [address] Dr. Keturah Fisher MANUAL DIFF REQ NO Normal [facility] Comment on above: Performed By: #### L IPA, CMP, CRP, NAT #### [facility] [address] [place] [address] Dr. Keturah Fisher MCH (RBC) [Entitic mass] 32.2 pg Normal 26.7-34.0 [facility] Comment on above: Performed By: #### L IPA, CMP, CRP, NAT #### [facility] [address] [place] [address] Dr. Keturah Fisher MCHC (RBC) [Mass/Vol] 32.9 g/dL Normal 29.9-35.2 [facility] Comment on above: Performed By: #### L IPA, CMP, CRP, NAT #### [facility] [address] [place] [address] Dr. Keturah Fisher MCV (RBC) [Entitic vol] 98.0 fL Normal 81.0-99.0 [facility] Comment on above: Performed By: #### L IPA, CMP, CRP, NAT #### [facility] [address] [place] [address] Dr. Keturah Fisher MONO # 1.1 103/ul Critically high 0.3-0.8 [facility] Comment on above: Performed By: #### L IPA, CMP, CRP, NAT #### [facility] [address] [place] [address] Dr. Keturah Fisher Monocytes/100 WBC (Bld) 9.7 % Normal 1.7-12.0 [facility] Comment on above: Performed By: #### L IPA, CMP, CRP, NAT #### [facility] [address] [address] [address] Keturah Fisher NEUT # 6.1 103/ul Normal 1.4-6.5 [facility] Comment on above: Performed By: #### L IPA, CMP, CRP, NAT #### [facility] [address] [address] [address] Keturah Fisher Neutrophils/100 WBC (Bld) 55.5 % Normal 43.0-75.0 [facility] Comment on above: Performed By: #### L IPA, CMP, CRP, NAT #### [facility] [address] [address] [address] Keturah Fisher Platelet mean volume (Bld) [Entitic vol] 9.7 fL Normal 9.5-13.5 [facility] Comment on above: Performed By: #### L IPA, CMP, CRP, NAT #### [facility] [address] [place] [address] Dr. Keturah Fisher PLT 274 103/ul Normal 150-450 [facility] Comment on above: Performed By: #### L IPA, CMP, CRP, NAT #### [facility] [address] [place] [address] Dr. Keturah Fisher RBC 4.56 106/ul Normal 4.20-5.40 [facility] Comment on above: Performed By: #### L IPA, CMP, CRP, NAT #### [facility] [address] [place] [address] Dr. Keturah Fisher WBC 10.9 103/ul Normal 4.0-11.0 [facility] Comment on above: Performed By: #### L IPA, CMP, CRP, NAT #### [facility] [address] [place] [address] Dr. Keturah Fisher CRPon 12-13-2021 CRP [Mass/Vol] mg/L Normal <=1.0 [facility] Comment on above: Performed By: #### L IPA, CMP, CRP, NAT #### [facility] [address] [place] [address] ABD/PELV W CONon [...] AGUSTIN HIGHTOWER Date: 2021-12-13 20:50 Normal [facility] LIPASEon 12-13-2021 Lipase [Catalytic activity/Vol] 1496.0 U/L Critically high 73.0-393.0 [facility] Comment on above: Performed By: #### L IPA, CMP, CRP, NAT #### [facility] [address] [address] [address] Keturah Fisher PROF 14(COMP METB)on 022 Albumin [Mass/Vol] 4.0 g/dL Normal 3.4-5.0 [facility] Comment on above: Performed By: #### L IPA, CMP, CRP, NAT #### [facility] [address] [place] [address] Dr. Keturah Fisher Albumin/Globulin [Mass ratio] 1.0 {ratio} Normal [facility] Comment on above: Performed By: #### L IPA, CMP, CRP, NAT #### [facility] [address] [place] [address] Dr. Keturah Fisher ALP [Catalytic activity/Vol] 166 U/L Critically high 46-116 [facility] Comment on above: Performed By: #### L IPA, CMP, CRP, NAT #### [facility] [address] [address] [address] Keturah Fisher ALT [Catalytic activity/Vol] 19 U/L Normal 14-59 [facility] Comment on above: Performed By: #### L IPA, CMP, CRP, NAT #### [facility] [address] [address] [address] Keturah Fisher Anion gap [Moles/Vol] 9.5 mmol/L Normal [facility] Comment on above: Performed By: #### L IPA, CMP, CRP, NAT #### [facility] [address] [place] [address] Dr. Keturah Fisher AST [Catalytic activity/Vol] 16 U/L Normal 15-37 [facility] Comment on above: Performed By: #### L IPA, CMP, CRP, NAT #### [facility] [address] [address] [address] Keturah Fisher Bilirubin [Mass/Vol] 0.1 mg/dL Critically low 0.2-1.0 [facility] Comment on above: Performed By: #### L IPA, CMP, CRP, NAT #### [facility] [address] [address] [address] Keturah Fisher Calcium [Mass/Vol] 9.6 mg/dL Normal 8.5-10.1 [facility] Comment on above: Performed By: #### L IPA, CMP, CRP, NAT #### [facility] [address] [address] [address] Keturah Fisher Chloride [Moles/Vol] 104 mmol/L Normal 98-107 [facility] Comment on above: Performed By: #### L IPA, CMP, CRP, NAT #### [facility] [address] [address] [address] Keturah Fisher CO2 [Moles/Vol] 29.7 mmol/L Normal 21.0-32.0 [facility] Comment on above: Performed By: #### L IPA, CMP, CRP, NAT #### [facility] [address] [place] [address] Dr. Keturah Fisher Creatinine [Mass/Vol] 0.85 mg/dL Normal 0.55-1.02 [facility] Comment on above: Performed By: #### L IPA, CMP, CRP, NAT #### [facility] [address] [place] [address] Dr. Keturah Fisher EGFR-AF MALTESE >60 Normal >=60 [facility] Comment on above: Performed By: #### L IPA, CMP, CRP, NAT #### [facility] [address] [place] [address] Dr. Keturah Fisher EGFR-NON AF MALTESE >60 Normal >=60 [facility] Comment on above: Performed By: #### L IPA, CMP, CRP, NAT #### [facility] [address] [place] [address] Dr. Keturah Fisher Globulin (S) [Mass/Vol] 3.9 g/dL Normal [facility] Comment on above: Performed By: #### L IPA, CMP, CRP, NAT #### [facility] [address] [place] [address] Dr. Keturah Fisher Glucose [Mass/Vol] 70 mg/dL Critically low 74-106 [facility] Comment on above: Performed By: #### L IPA, CMP, CRP, NAT #### [facility] [address] [place] [address] Dr. Keturah Fisher Potassium [Moles/Vol] 3.2 mmol/L Critically low 3.5-5.1 [facility] Comment on above: Performed By: #### L IPA, CMP, CRP, NAT #### [facility] [address] [place] [address] Dr. Keturah Fisher Protein [Mass/Vol] 7.9 g/dL Normal 6.4-8.2 [facility] Comment on above: Performed By: #### L IPA, CMP, CRP, NAT #### [facility] [address] [place] [address] Dr. Keturah Fisher Sodium [Moles/Vol] 140 mmol/L Normal 136-145 [facility] Comment on above: Performed By: #### L IPA, CMP, CRP, NAT #### [facility] [address] [place] [address] Dr. Keturah Fisher Urea nitrogen [Mass/Vol] 8.0 mg/dL Normal 7.0-18.0 [facility] Comment on above: Performed By: #### L IPA, CMP, CRP, NAT #### [facility] [address] [place] [address] Dr. Keturah Fisher Urea nitrogen/Creatinine [Mass ratio] 9.4 mg/mg Normal [facility] Comment on above: Performed By: #### L IPA, CMP, CRP, NAT #### [facility] [address] [place] [address] Dr. Keturah Fisher AMYLASEon 12-05-2021 Amylase [Catalytic activity/Vol] 223 U/L Critically high 25-115 [facility] Comment on above: Performed By: #### L IPA, CMP, CRP, NAT #### [facility] [address] [place] [address] Dr. Keturah Fisher CBC AUTO DIFFon 12-05-2021 BASO # 0.1 103/ul Normal 0.0-0.1 [facility] Comment on above: Performed By: #### C BC #### [facility] [address] [place] [address] Dr. Keturah Fisher Basophils/100 WBC (Bld) 0.7 % Normal 0.2-2.0 [facility] Comment on above: Performed By: #### C BC #### [facility] [address] [place] [address] Dr. Keturah Fisher EO # 0.2 103/ul Normal 0.0-0.7 [facility] Comment on above: Performed By: #### C BC #### [facility] [address] [place] [address] Dr. Keturah Fisher Eosinophils/100 WBC (Bld) 1.7 % Normal 0.9-7.0 [facility] Comment on above: Performed By: #### C BC #### [facility] [address] [place] [address] Dr. Keturah Fisher Erythrocyte distribution width (RBC) [Ratio] 13.0 % Normal 11.0-15.0 [facility] Comment on above: Performed By: #### C BC #### [facility] [address] [place] [address] Dr. Keturah Fisher Hematocrit (Bld) [Volume fraction] 44.9 % Normal 36.0-48.0 [facility] Comment on above: Performed By: #### C BC #### [facility] [address] [place] [address] Dr. Keturah Fisher Hemoglobin (Bld) [Mass/Vol] 15.1 g/dL Normal 12.0-16.0 [facility] Comment on above: Performed By: #### C BC #### [facility] [address] [place] [address] Dr. Keturah Fisher IG # 0.02 10e3/ul Normal 0.00-0.03 [facility] Comment on above: Performed By: #### C BC #### [facility] [address] [place] [address] Dr. Keturah Fisher IG % 0.2 % Normal 0.0-0.5 [facility] Comment on above: Performed By: #### C BC #### [facility] [address] [place] [address] Dr. Keturah Fisher LYMPH # 2.8 103/ul Normal 1.2-3.8 [facility] Comment on above: Performed By: #### C BC #### [facility] [address] [place] [address] Dr. Keturah Fisher Lymphocytes/100 WBC (Bld) 29.8 % Normal 20.5-60.0 [facility] Comment on above: Performed By: #### C BC #### [facility] [address] [place] [address] Dr. Keturah Fisher MANUAL DIFF REQ NO Normal [facility] Comment on above: Performed By: #### C BC #### [facility] [address] [place] [address] Dr. Keturah Fisher MCH (RBC) [Entitic mass] 32.4 pg Normal 26.7-34.0 [facility] Comment on above: Performed By: #### C BC #### [facility] [address] [place] [address] Dr. Keturah Fisher MCHC (RBC) [Mass/Vol] 33.6 g/dL Normal 29.9-35.2 [facility] Comment on above: Performed By: #### C BC #### [facility] [address] [place] [address] Dr. Keturah Fisher MCV (RBC) [Entitic vol] 96.4 fL Normal 81.0-99.0 [facility] Comment on above: Performed By: #### C BC #### [facility] [address] [place] [address] Dr. Keturah Fisher MONO # 0.6 103/ul Normal 0.3-0.8 [facility] Comment on above: Performed By: #### C BC #### [facility] [address] [place] [address] Dr. Keturah Fisher Monocytes/100 WBC (Bld) 6.3 % Normal 1.7-12.0 [facility] Comment on above: Performed By: #### C BC #### [facility] [address] [place] [address] Dr. Keturah Fisher NEUT # 5.7 103/ul Normal 1.4-6.5 [facility] Comment on above: Performed By: #### C BC #### [facility] [address] [address] [address] Keturah Fisher Neutrophils/100 WBC (Bld) 61.3 % Normal 43.0-75.0 [facility] Comment on above: Performed By: #### C BC #### [facility] [address] [place] [address] Dr. Keturah Fisher Platelet mean volume (Bld) [Entitic vol] 10.7 fL Normal 9.5-13.5 [facility] Comment on above: Performed By: #### C BC #### [facility] [address] [place] [address] Dr. Keturah Fisher PLT 217 103/ul Normal 150-450 [facility] Comment on above: Performed By: #### C BC #### [facility] [address] [place] [address] Dr. Keturah Fisher RBC 4.66 106/ul Normal 4.20-5.40 [facility] Comment on above: Performed By: #### C BC #### [facility] [address] [place] [address] Dr. Keturah Fisher WBC 9.2 103/ul Normal 4.0-11.0 [facility] Comment on above: Performed By: #### C BC #### [facility] [address] [place] [address] Dr. Keturah Fisher LIPASEon 12-05-2021 Lipase [Catalytic activity/Vol] 725.0 U/L Critically high 73.0-393.0 [facility] Comment on above: Performed By: #### L IPA, CMP, CRP, NAT #### [facility] [address] [place] [address] Dr. Keturah Fisher PROF 14(COMP METB)on 022 Albumin [Mass/Vol] 4.2 g/dL Normal 3.4-5.0 [facility] Comment on above: Performed By: #### L IPA, CMP, CRP, NAT #### [facility] [address] [place] [address] Dr. Keturah Fisher Albumin/Globulin [Mass ratio] 1.2 {ratio} Normal [facility] Comment on above: Performed By: #### L IPA, CMP, CRP, NAT #### [facility] [address] [address] [address] Keturah Fisher ALP [Catalytic activity/Vol] 158 U/L Critically high 46-116 [facility] Comment on above: Performed By: #### L IPA, CMP, CRP, NAT #### [facility] [address] [place] [address] Dr. Keturah Fisher ALT [Catalytic activity/Vol] 20 U/L Normal 14-59 [facility] Comment on above: Performed By: #### L IPA, CMP, CRP, NAT #### [facility] [address] [place] [address] Dr. Keturah Fisher Anion gap [Moles/Vol] 14.0 mmol/L Normal [facility] Comment on above: Performed By: #### L IPA, CMP, CRP, NAT #### [facility] [address] [place] [address] Dr. Keturah Fisher AST [Catalytic activity/Vol] 27 U/L Normal 15-37 [facility] Comment on above: Performed By: #### L IPA, CMP, CRP, NAT #### [facility] [address] [place] [address] Dr. Keturah Fisher Bilirubin [Mass/Vol] 0.3 mg/dL Normal 0.2-1.0 [facility] Comment on above: Performed By: #### L IPA, CMP, CRP, NAT #### [facility] [address] [place] [address] Dr. Keturah Fisher Calcium [Mass/Vol] 10.1 mg/dL Normal 8.5-10.1 [facility] Comment on above: Performed By: #### L IPA, CMP, CRP, NAT #### [facility] [address] [place] [address] Dr. Keturah Fisher Chloride [Moles/Vol] 105 mmol/L Normal 98-107 [facility] Comment on above: Performed By: #### L IPA, CMP, CRP, NAT #### [facility] [address] [place] [address] Dr. Keturah Fisher CO2 [Moles/Vol] 24.9 mmol/L Normal 21.0-32.0 [facility] Comment on above: Performed By: #### L IPA, CMP, CRP, NAT #### [facility] [address] [address] [address] Keturah Fisher Creatinine [Mass/Vol] 0.77 mg/dL Normal 0.55-1.02 [facility] Comment on above: Performed By: #### L IPA, CMP, CRP, NAT #### [facility] [address] [address] [address] Keturah Fisher EGFR-AF MALTESE >60 Normal >=60 [facility] Comment on above: Performed By: #### L IPA, CMP, CRP, NAT #### [facility] [address] [address] [address] Keturah Fisher EGFR-NON AF MALTESE >60 Normal >=60 [facility] Comment on above: Performed By: #### L IPA, CMP, CRP, NAT #### [facility] [address] [address] [address] Keturah Fisher Globulin (S) [Mass/Vol] 3.5 g/dL Normal [facility] Comment on above: Performed By: #### L IPA, CMP, CRP, NAT #### [facility] [address] [address] [address] Keturah Fisher Glucose [Mass/Vol] 91 mg/dL Normal 74-106 [facility] Comment on above: Performed By: #### L IPA, CMP, CRP, NAT #### [facility] [address] [address] [address] Keturah Fisher Potassium [Moles/Vol] 3.9 mmol/L Normal 3.5-5.1 [facility] Comment on above: Performed By: #### L IPA, CMP, CRP, NAT #### [facility] [address] [address] [address] Keturah Fisher Protein [Mass/Vol] 7.7 g/dL Normal 6.4-8.2 [facility] Comment on above: Performed By: #### L IPA, CMP, CRP, NAT #### [facility] [address] [place] [address] Dr. Keturah Fisher Sodium [Moles/Vol] 140 mmol/L Normal 136-145 [facility] Comment on above: Performed By: #### L IPA, CMP, CRP, NAT #### [facility] [address] [place] [address] Dr. Keturah Fisher Urea nitrogen [Mass/Vol] 8.0 mg/dL Normal 7.0-18.0 [facility] Comment on above: Performed By: #### L IPA, CMP, CRP, NAT #### [facility] [address] [place] [address] Dr. Keturah Fisher Urea nitrogen/Creatinine [Mass ratio] 10.4 mg/mg Normal [facility] Comment on above: Performed By: #### L IPA, CMP, CRP, NAT #### [facility] [address] [place] [address] Dr. Keturah Fisher AMYLASEon 10-11-2021 Amylase [Catalytic activity/Vol] 134 U/L Critically high 25-115 [facility] Comment on above: Performed By: #### C BC #### [facility] [address] [place] [address] Dr. Keturah Fisher CBC AUTO DIFFon 10-11-2021 BASO # 0.1 103/ul Normal 0.0-0.1 [facility] Comment on above: Performed By: #### L IPA, CMP, CRP, NAT #### [facility] [address] [place] [address] Dr. Keturah Fisher Basophils/100 WBC (Bld) 1.0 % Normal 0.2-2.0 [facility] Comment on above: Performed By: #### L IPA, CMP, CRP, NAT #### [facility] [address] [place] [address] Dr. Keturah Fisher EO # 0.2 103/ul Normal 0.0-0.7 [facility] Comment on above: Performed By: #### L IPA, CMP, CRP, NAT #### [facility] [address] [place] [address] Dr. Keturah Fisher Eosinophils/100 WBC (Bld) 2.0 % Normal 0.9-7.0 [facility] Comment on above: Performed By: #### L IPA, CMP, CRP, NAT #### [facility] [address] [place] [address] Dr. Keturah Fisher Erythrocyte distribution width (RBC) [Ratio] 13.2 % Normal 11.0-15.0 [facility] Comment on above: Performed By: #### L IPA, CMP, CRP, NAT #### [facility] [address] [place] [address] Dr. Keturah Fisher Hematocrit (Bld) [Volume fraction] 44.7 % Normal 36.0-48.0 [facility] Comment on above: Performed By: #### L IPA, CMP, CRP, NAT #### [facility] [address] [place] [address] Dr. Keturah Fisher Hemoglobin (Bld) [Mass/Vol] 15.0 g/dL Normal 12.0-16.0 [facility] Comment on above: Performed By: #### L IPA, CMP, CRP, NAT #### [facility] [address] [address] [address] Keturah Fisher IG # 0.02 10e3/ul Normal 0.00-0.03 [facility] Comment on above: Performed By: #### L IPA, CMP, CRP, NAT #### [facility] [address] [place] [address] Dr. Keturah Fisher IG % 0.2 % Normal 0.0-0.5 [facility] Comment on above: Performed By: #### L IPA, CMP, CRP, NAT #### [facility] [address] [place] [address] Dr. Keturah Fisher LYMPH # 4.1 103/ul Critically high 1.2-3.8 [facility] Comment on above: Performed By: #### L IPA, CMP, CRP, NAT #### [facility] [address] [place] [address] Dr. Keturah Fisher Lymphocytes/100 WBC (Bld) 38.9 % Normal 20.5-60.0 [facility] Comment on above: Performed By: #### L IPA, CMP, CRP, NAT #### [facility] [address] [place] [address] Dr. Keturah Fisher MANUAL DIFF REQ NO Normal [facility] Comment on above: Performed By: #### L IPA, CMP, CRP, NAT #### [facility] [address] [place] [address] Dr. Keturah Fisher MCH (RBC) [Entitic mass] 32.1 pg Normal 26.7-34.0 [facility] Comment on above: Performed By: #### L IPA, CMP, CRP, NAT #### [facility] [address] [place] [address] Dr. Keturah Fisher MCHC (RBC) [Mass/Vol] 33.6 g/dL Normal 29.9-35.2 [facility] Comment on above: Performed By: #### L IPA, CMP, CRP, NAT #### [facility] [address] [place] [address] Dr. Keturah Fisher MCV (RBC) [Entitic vol] 95.7 fL Normal 81.0-99.0 [facility] Comment on above: Performed By: #### L IPA, CMP, CRP, NAT #### [facility] [address] [place] [address] Dr. Keturah Fisher MONO # 0.9 103/ul Critically high 0.3-0.8 [facility] Comment on above: Performed By: #### L IPA, CMP, CRP, NAT #### [facility] [address] [place] [address] Dr. Keturah Fisher Monocytes/100 WBC (Bld) 8.8 % Normal 1.7-12.0 [facility] Comment on above: Performed By: #### L IPA, CMP, CRP, NAT #### [facility] [address] [place] [address] Dr. Keturah Fisher NEUT # 5.2 103/ul Normal 1.4-6.5 [facility] Comment on above: Performed By: #### L IPA, CMP, CRP, NAT #### [facility] [address] [place] [address] Dr. Keturah Fisher Neutrophils/100 WBC (Bld) 49.1 % Normal 43.0-75.0 [facility] Comment on above: Performed By: #### L IPA, CMP, CRP, NAT #### [facility] [address] [place] [address] Dr. Keturah Fisher Platelet mean volume (Bld) [Entitic vol] 9.8 fL Normal 9.5-13.5 [facility] Comment on above: Performed By: #### L IPA, CMP, CRP, NAT #### [facility] [address] [place] [address] Dr. Keturah Fisher PLT 299 103/ul Normal 150-450 [facility] Comment on above: Performed By: #### L IPA, CMP, CRP, NAT #### [facility] [address] [place] [address] Dr. Keturah Fisher RBC 4.67 106/ul Normal 4.20-5.40 [facility] Comment on above: Performed By: #### L IPA, CMP, CRP, NAT #### [facility] [address] [place] [address] Dr. Keturah Fisher WBC 10.5 103/ul Normal 4.0-11.0 [facility] Comment on above: Performed By: #### L IPA, CMP, CRP, NAT #### [facility] [address] [place] [address] Dr. Keturah Fisher LIPASEon 10-11-2021 Lipase [Catalytic activity/Vol] 240.0 U/L Normal 73.0-393.0 [facility] Comment on above: Performed By: #### C BC #### [facility] [address] [place] [address] Dr. Keturah Fisher PROF 14(COMP METB)on 022 Albumin [Mass/Vol] 4.3 g/dL Normal 3.4-5.0 [facility] Comment on above: Performed By: #### C BC #### [facility] [address] [place] [address] Dr. Keturah Fisher Albumin/Globulin [Mass ratio] 1.3 {ratio} Normal [facility] Comment on above: Performed By: #### C BC #### [facility] [address] [place] [address] Dr. Keturah Fisher ALP [Catalytic activity/Vol] 162 U/L Critically high 46-116 [facility] Comment on above: Performed By: #### C BC #### [facility] [address] [address] [address] Keturah Fisher ALT [Catalytic activity/Vol] 21 U/L Normal 14-59 [facility] Comment on above: Performed By: #### C BC #### [facility] [address] [place] [address] Dr. Keturah Fisher Anion gap [Moles/Vol] 15.1 mmol/L Normal [facility] Comment on above: Performed By: #### C BC #### [facility] [address] [place] [address] Dr. Keturah Fisher AST [Catalytic activity/Vol] 16 U/L Normal 15-37 [facility] Comment on above: Performed By: #### C BC #### [facility] [address] [place] [address] Dr. Keturah Fisher Bilirubin [Mass/Vol] 0.2 mg/dL Normal 0.2-1.0 [facility] Comment on above: Performed By: #### C BC #### [facility] [address] [place] [address] Dr. Keturah Fisher Calcium [Mass/Vol] 9.6 mg/dL Normal 8.5-10.1 [facility] Comment on above: Performed By: #### C BC #### [facility] [address] [place] [address] Dr. Keturah Fisher Chloride [Moles/Vol] 104 mmol/L Normal 98-107 [facility] Comment on above: Performed By: #### C BC #### [facility] [address] [place] [address] Dr. Keturah Fisher CO2 [Moles/Vol] 24.6 mmol/L Normal 21.0-32.0 [facility] Comment on above: Performed By: #### C BC #### [facility] [address] [address] [address] Keturah Fisher Creatinine [Mass/Vol] 0.88 mg/dL Normal 0.55-1.02 [facility] Comment on above: Performed By: #### C BC #### [facility] [address] [address] [address] Keturah Fisher EGFR-AF MALTESE >60 Normal >=60 [facility] Comment on above: Performed By: #### C BC #### [facility] [address] [address] [address] Keturah Fisher EGFR-NON AF MALTESE >60 Normal >=60 [facility] Comment on above: Performed By: #### C BC #### [facility] [address] [address] [address] Keturah Fisher Globulin (S) [Mass/Vol] 3.3 g/dL Normal [facility] Comment on above: Performed By: #### C BC #### [facility] [address] [address] [address] Keturah Fisher Glucose [Mass/Vol] 111 mg/dL Critically high 74-106 [facility] Comment on above: Performed By: #### C BC #### [facility] [address] [address] [address] Keturah Fisher Potassium [Moles/Vol] 3.7 mmol/L Normal 3.5-5.1 [facility] Comment on above: Performed By: #### C BC #### [facility] [address] [address] [address] Keturah Fisher Protein [Mass/Vol] 7.6 g/dL Normal 6.4-8.2 [facility] Comment on above: Performed By: #### C BC #### [facility] [address] [address] [address] Keturah Fisher Sodium [Moles/Vol] 140 mmol/L Normal 136-145 [facility] Comment on above: Performed By: #### C BC #### [facility] [address] [address] [address] Keturah Fisher Urea nitrogen [Mass/Vol] 11.0 mg/dL Normal 7.0-18.0 [facility] Comment on above: Performed By: #### C BC #### [facility] [address] [address] [address] Keturah Fisher Urea nitrogen/Creatinine [Mass ratio] 12.5 mg/mg Normal [facility] Comment on above: Performed By: #### C BC #### [facility] [address] [address] [address] Keturah Fisher PROTIMEon 10-11-2021 INR Coag (PPP) [Relative time] 0.94 {INR} Normal [facility] Comment on above: Performed By: #### P T, PTT ####[facility] [id number] [address]Dr. Keturah Fisher INR GUIDELINES SEE BELOW Normal [facility] Comment on above: Result Comment: KARLY RED INR: 2.0 - 3.0 CONDITIONS NOT LISTED BELOW 2.5 - 3.5 FOR PROSTHETIC HEART VALVE REPLACEMENT 2.5 - 3.5 RECURRENT THROMBOSIS Performed By: #### P T, PTT ####[facility] [id number] [address]Dr. Keturah Fisher PT Coag (PPP) [Time] 10.2 s Normal 9.0-11.6 [facility] Comment on above: Performed By: #### P T, PTT ####[facility] [id number] [address]Dr. Keturah Fisher PTTon 10-11-2021 aPTT Coag (Bld) [Time] 28.0 s Normal 22.3-36.2 [facility] Comment on above: Performed By: #### P T, PTT ####[facility] [id number] [address]Dr. Keturah Fisher Amphetamine Screen Ql (U)Ord ered By: Christa Lopez on 10-09-2021 Amphetamines Ql (U) Negative Negative [facility] Barbiturates [Presence] in U rineOrdered By: Christa Lopez on 10-09-2021 Barbiturates Ql (U) Negative Negative [facility] Basophils Auto (Bld) [#/Vol] Ordered By: hCrista Lopez on 10-09-2021 Basophils (Bld) [#/Vol] 0.1 10*3/uL 0.0-0.2 [facility] Basophils/100 WBC Auto (Bld) Ordered By: Christa Lopez on 10-09-2021 Basophils/100 WBC (Bld) 0.9 % . [facility] Benzodiazepines [Presence] i n UrineOrdered By: Christa Lopez on 10-09-2021 Benzodiazepines Ql (U) Negative [facility] Bilirubin Auto test strip Ql (U)Ordered By: Christa Lopez on 10-09-2021 Bilirubin Ql (U) Negative Negative [facility] Blood hemoglobin measurement (mass/volume)Ordered By: Christa Lopez on 10-09-2021 Hemoglobin (Bld) [Mass/Vol] 15.7 g/dL 11.8-15.4 [facility] Blood leukocytes automated c ount (number/volume)Ordered By: Christa Lopez on 10-09-2021 WBC (Bld) [#/Vol] 10.1 10*3/uL 4.5-11.0 [facility] Body fluid albumin measureme nt (mass/volume)Ordered By: Christa Lopez on 10-09-2021 Albumin (Body fld) [Mass/Vol] 4.5 g/dL 3.2-5.5 [facility] Cannabinoids [Presence] in U rine by Screen methodOrdered By: Chrsita Lopez on 10-09-2021 Cannabinoids Screen Ql (U) Negative Negative [facility] Comment on above: These are unconfirme [...] 10-09-2021 Eosinophils (Bld) [#/Vol] 0.1 10*3/uL 0.0-0.45 [facility] Eosinophils/100 WBC Auto (Bl d)Ordered By: Christa Lopez on 10-09-2021 Eosinophils/100 WBC (Bld) 1.2 % . [facility] Erythrocyte distribution wid th Auto (RBC) [Ratio]Ordered By: Christa Lopez on 10-09-2021 Erythrocyte distribution width (RBC) [Ratio] 13.5 % 11.9-15.3 [facility] Estimated glomerular filtrat ion rate (GFR) non- AmericanOrdered By: Christa Lopez on 10-09-2021 GFR/1.73 sq M.predicted among non-blacks MDRD (S/P/Bld) [Vol rate/Area] > 60 mL/Min [facility] Globulin Calc (S) [Mass/Vol] Ordered By: Christa Lopez on 10-09-2021 Globulin (S) [Mass/Vol] 2.9 g/dL [facility] Hematocrit Auto (Bld) [Volum e fraction]Ordered By: Christa Lopez on 10-09-2021 Hematocrit (Bld) [Volume fraction] 47.1 % 34.0-46.4 [facility] Ketones Auto test strip (U) [Mass/Vol]Ordered By: Christa Lopez on 10-09-2021 Ketones (U) [Mass/Vol] Negative Negative [facility] - Chemistry and C hemistry - challengeOrdered By: Christa Lopez on 10-09-2021 Lipase [Catalytic activity/Vol] 242.0 U/L 22-51 [facility] - Drug toxicology Ordered By: Christa Lopez on 10-09-2021 Opiates Ql (U) Negative Negative [facility] - Hematology and Cell countsOrdered By: Christa Lopez on 10-09-2021 Nucleated RBC/100 WBC (Bld) [Ratio] 0.1 % 0-0.5 [facility] Lymphocytes Auto (Bld) [#/Vo l]Ordered By: Christa Lopez on 10-09-2021 Lymphocytes (Bld) [#/Vol] 2.6 10*3/uL 1.00-4.8 [facility] Lymphocytes/100 WBC Auto (Bl d)Ordered By: Christa Lopez on 10-09-2021 Lymphocytes/100 WBC (Bld) 26.0 % . [facility] MCH Auto (RBC) [Entitic mass ]Ordered By: Christa Lopez on 10-09-2021 MCH (RBC) [Entitic mass] 32.4 pg 24.7-34.3 [facility] MCHC Auto (RBC) [Mass/Vol]Or dered By: Christa Lopez on 10-09-2021 MCHC (RBC) [Mass/Vol] 33.3 g/dL 32.0-35.0 [facility] MCV Auto (RBC) [Entitic vol] Ordered By: Christa Lopez on 10-09-2021 MCV (RBC) [Entitic vol] 97.3 fL 80-100 [facility] Monocytes Auto (Bld) [#/Vol] Ordered By: Christa Lopez on 10-09-2021 Monocytes (Bld) [#/Vol] 0.8 10*3/uL 0.0-0.8 [facility] Monocytes/100 WBC Auto (Bld) Ordered By: Christa Lopez on 10-09-2021 Monocytes/100 WBC (Bld) 7.6 % . [facility] Neutrophils Auto (Bld) [#/Vo l]Ordered By: Christa Lopez on 10-09-2021 Neutrophils (Bld) [#/Vol] 6.5 10*3/uL 1.8-7.7 [facility] Neutrophils/100 WBC Auto (Bl d)Ordered By: Christa Lopez on 10-09-2021 Neutrophils/100 WBC (Bld) 64.3 % . [facility] No Panel InformationOrdered By: Christa Lopez on 10-09-2021 Estimated GFR () > 60 mL/Min [facility] Comment on above: GFR estimated refere nce range: According to KDOQI guidelines, <60 ml/min/1.73m2 is sufficient to diagnose a patient with chronic kidney disease. Pharmacy Creatinine Clearance (Chem 61.23 [facility] Phencyclidine Screen Ql (U)O rdered By: Christa Lopez on 10-09-2021 Phencyclidine Ql (U) Negative Negative [facility] Platelet mean volume Auto (B ld) [Entitic vol]Ordered By: Christa Lopez on 10-09-2021 Platelet mean volume (Bld) [Entitic vol] 8.5 fL 6.3-10.7 [facility] Platelets Auto (Bld) [#/Vol] Ordered By: Christa Lopez on 10-09-2021 Platelets (Bld) [#/Vol] 284 10*3/uL 150-450 [facility] Protein Auto test strip (U) [Mass/Vol]Ordered By: Christa Lopez on 10-09-2021 Protein (U) [Mass/Vol] Negative Negative [facility] Protein [Mass/volume] in Ser um or PlasmaOrdered By: Christa Lopez on 10-09-2021 Protein [Mass/Vol] 7.4 g/dL 6.1-7.9 [facility] RBC Auto (Bld) [#/Vol]Ordere d By: Christa Lopez on 10-09-2021 RBC (Bld) [#/Vol] 4.84 10*6/uL 3.60-5.00 [facility] Serum or plasma alanine hughes otransferase measurement without P-5'-P (enzymatic activiOrdered By: Christa Lopez on 10-09-2021 ALT No additional P-5'-P [Catalytic activity/Vol] 19 U/L 10-60 [facility] Serum or plasma albumin/glob ulin mass ratioOrdered By: Christa Lopez on 10-09-2021 Albumin/Globulin [Mass ratio] 1.6 {ratio} [facility] Serum or plasma alkaline jaqueline sphatase measurement (enzymatic activity/volume)Ordered By: Christa Lopez on 10-09-2021 ALP [Catalytic activity/Vol] 138 U/L 32-92 [facility] Serum or plasma aspartate am inotransferase measurement (enzymatic activity/volume)Ordered By: Christa Lopez on 10-09-2021 AST [Catalytic activity/Vol] 31 U/L 10-42 [facility] Serum or plasma calcium priscilla urement (mass/volume)Ordered By: Christa Lopez on 10-09-2021 Calcium [Mass/Vol] 10.3 mg/dL 8.2-10.2 [facility] Serum or plasma chloride daron surement (moles/volume)Ordered By: Christa Lopez on 10-09-2021 Chloride [Moles/Vol] 100 mmol/L 95-114 [facility] Serum or plasma glucose priscilla urement (mass/volume)Ordered By: Christa Lopez on 10-09-2021 Glucose [Mass/Vol] 75 mg/dL 70-100 [facility] Comment on above: ADA recommended refe rence [...] on 10-09-2021 Sodium [Moles/Vol] 136 mmol/L 136-146 [facility] Serum or plasma total biliru bin measurement (mass/volume)Ordered By: Christa Lopez on 10-09-2021 Bilirubin [Mass/Vol] 0.4 mg/dL 0.3-1.2 [facility] Serum or plasma total carbon dioxide measurement (moles/volume)Ordered By: Christa Lopez on 10-09-2021 CO2 [Moles/Vol] 24.1 mmol/L 22.0-30.0 [facility] Serum or plasma urea nitroge n measurement (mass/volume)Ordered By: Christa Lopez on 10-09-2021 Urea nitrogen [Mass/Vol] 12 mg/dL 9-23 [facility] Troponin I.cardiac [Mass/vol ume] in Serum or Plasma by High sensitivity methodOrdered By: Christa Lopez on 10-09-2021 Troponin I.cardiac High sensitivity method [Mass/Vol] 3 pg/mL 0-15 [facility] Urine appearanceOrdered By: Christa Lopez on 10-09-2021 Appearance (U) Clear Clear [facility] Urine cocaine detectionOrder ed By: Christa Lopez on 10-09-2021 Cocaine Ql (U) Negative Negative [facility] Urine colorOrdered By: Christa Lopez on 10-09-2021 Color (U) Yellow Yellow [facility] Urine glucose measurement by automated test strip (mass/volume)Ordered By: Christa Lopez on 10-09-2021 Glucose Auto test strip (U) [Mass/Vol] Normal mg/dL Normal [facility] Urine hemoglobin detection b y automated test stripOrdered By: Christa Lopez on 10-09-2021 Hemoglobin Auto test strip Ql (U) Negative Negative [facility] Urine leukocyte esterase det ection by automated test stripOrdered By: Christa Lopez on 10-09-2021 Leukocyte esterase Auto test strip Ql (U) Negative Negative [facility] Urine nitrite detection by a utomated test stripOrdered By: Christa Lopez on 10-09-2021 Nitrite Auto test strip Ql (U) Negative Negative [facility] Urobilinogen Auto test strip (U) [Mass/Vol]Ordered By: Christa Lopez on 10-09-2021 Urobilinogen (U) [Mass/Vol] Normal mg/dL Normal [facility] pH Auto test strip (U)Ordere d By: Christa Lopez on 10-09-2021 pH (U) 1.025 [pH] 1.001-1.03 0 [facility] pH (U) 5.5 [pH] 5.0-9.0 [facility] Albumin [Mass/volume] in Ser um or PlasmaOrdered By: Reinaldo Amor on 10-04-2021 Albumin [Mass/Vol] 3.6 g/dL 3.2-5.5 [facility] Basophils Auto (Bld) [#/Vol] Ordered By: Reinaldo Amor on 10-04-2021 Basophils (Bld) [#/Vol] 0.1 10*3/uL 0.0-0.2 [facility] Basophils/100 WBC Auto (Bld) Ordered By: Reinaldo Amor on 10-04-2021 Basophils/100 WBC (Bld) 0.8 % . [facility] Bilirubin Auto test strip Ql (U)Ordered By: Reinaldo Amor on 10-04-2021 Bilirubin Ql (U) Negative Negative [facility] Blood hemoglobin measurement (mass/volume)Ordered By: Reinaldo Amor on 10-04-2021 Hemoglobin (Bld) [Mass/Vol] 13.9 g/dL 11.8-15.4 [facility] Blood leukocytes automated c ount (number/volume)Ordered By: Reinaldo Amor on 10-04-2021 WBC (Bld) [#/Vol] 10.4 10*3/uL 4.5-11.0 [facility] Creatinine and Glomerular fi ltration rate.predicted panel (S/P/Bld)Ordered By: Reinaldo Amor on 10-04-2021 Creatinine [Mass/Vol] 0.73 mg/dL 0.44-1.03 [facility] Direct bilirubin measurement Ordered By: Reinaldo Amor on 10-04-2021 Bilirubin.direct [Mass/Vol] mg/dL 0.0-0.4 [facility] Eosinophils Auto (Bld) [#/Vo l]Ordered By: Reinaldo Amor on 10-04-2021 Eosinophils (Bld) [#/Vol] 0.1 10*3/uL 0.0-0.45 [facility] Eosinophils/100 WBC Auto (Bl d)Ordered By: Reinaldo Amor on 10-04-2021 Eosinophils/100 WBC (Bld) 0.5 % . [facility] Erythrocyte distribution wid th Auto (RBC) [Ratio]Ordered By: Reinaldo Amor on 10-04-2021 Erythrocyte distribution width (RBC) [Ratio] 13.7 % 11.9-15.3 [facility] Estimated glomerular filtrat ion rate (GFR) non- AmericanOrdered By: Reinaldo Amor on 10-04-2021 GFR/1.73 sq M.predicted among non-blacks MDRD (S/P/Bld) [Vol rate/Area] > 60 mL/Min [facility] Globulin Calc (S) [Mass/Vol] Ordered By: Reinaldo Amor on 10-04-2021 Globulin (S) [Mass/Vol] 2.6 g/dL [facility] Hematocrit Auto (Bld) [Volum e fraction]Ordered By: Reinaldo Amor on 10-04-2021 Hematocrit (Bld) [Volume fraction] 41.1 % 34.0-46.4 [facility] Ketones Auto test strip (U) [Mass/Vol]Ordered By: Reinaldo Amor on 10-04-2021 Ketones (U) [Mass/Vol] Negative Negative [facility] - Chemistry and C hemistry - challengeOrdered By: Reinaldo Amor on 10-04-2021 Lipase [Catalytic activity/Vol] 107.0 U/L 22- [facility] - Hematology and Cell countsOrdered By: Reinaldo Amor on 10-04-2021 Nucleated RBC/100 WBC (Bld) [Ratio] 0.1 % 0-0.5 [facility] Lymphocytes Auto (Bld) [#/Vo l]Ordered By: Reinaldo Amor on 10-04-2021 Lymphocytes (Bld) [#/Vol] 2.5 10*3/uL 1.00-4.8 [facility] Lymphocytes/100 WBC Auto (Bl d)Ordered By: Reinaldo Amor on 10-04-2021 Lymphocytes/100 WBC (Bld) 24.1 % . [facility] MCH Auto (RBC) [Entitic mass ]Ordered By: Reinaldo Amor on 10-04-2021 MCH (RBC) [Entitic mass] 32.6 pg 24.7-34.3 [facility] MCHC Auto (RBC) [Mass/Vol]Or dered By: Reinaldo Amor on 10-04-2021 MCHC (RBC) [Mass/Vol] 33.8 g/dL 32.0-35.0 [facility] MCV Auto (RBC) [Entitic vol] Ordered By: Reinaldo Amor on 10-04-2021 MCV (RBC) [Entitic vol] 96.5 fL 80-100 [facility] Monocytes Auto (Bld) [#/Vol] Ordered By: Reinaldo Amor on 10-04-2021 Monocytes (Bld) [#/Vol] 0.9 10*3/uL 0.0-0.8 [facility] Monocytes/100 WBC Auto (Bld) Ordered By: Reinaldo Amor on 10-04-2021 Monocytes/100 WBC (Bld) 8.4 % . [facility] Neutrophils Auto (Bld) [#/Vo l]Ordered By: Reinaldo Amor on 10-04-2021 Neutrophils (Bld) [#/Vol] 6.9 10*3/uL 1.8-7.7 [facility] Neutrophils/100 WBC Auto (Bl d)Ordered By: Reinaldo Amor on 10-04-2021 Neutrophils/100 WBC (Bld) 66.2 % . [facility] No Panel InformationOrdered By: Reinaldo Amor on 10-04-2021 Estimated GFR () > 60 mL/Min [facility] Comment on above: GFR estimated refere nce range: According to KDOQI guidelines, <60 ml/min/1.73m2 is sufficient to diagnose a patient with chronic kidney disease. Pharmacy Creatinine Clearance (Chem 71.30 [facility] Platelet mean volume Auto (B ld) [Entitic vol]Ordered By: Reinaldo Amor on 10-04-2021 Platelet mean volume (Bld) [Entitic vol] 8.0 fL 6.3-10.7 [facility] Platelets Auto (Bld) [#/Vol] Ordered By: Reinaldo Amor on 10-04-2021 Platelets (Bld) [#/Vol] 268 10*3/uL 150-450 [facility] Protein Auto test strip (U) [Mass/Vol]Ordered By: Reinaldo Amor on 10-04-2021 Protein (U) [Mass/Vol] Negative Negative [facility] Protein [Mass/volume] in Ser um or PlasmaOrdered By: Reinaldo Amor on 10-04-2021 Protein [Mass/Vol] 6.2 g/dL 6.1-7.9 [facility] RBC Auto (Bld) [#/Vol]Ordere d By: Reinaldo Amor on 10-04-2021 RBC (Bld) [#/Vol] 4.26 10*6/uL 3.60-5.00 [facility] Serum or plasma alanine hughes otransferase measurement without P-5'-P (enzymatic activiOrdered By: Reinaldo Amor on 10-04-2021 ALT No additional P-5'-P [Catalytic activity/Vol] 15 U/L 10-60 [facility] Serum or plasma albumin/glob ulin mass ratioOrdered By: Reinaldo Amor on 10-04-2021 Albumin/Globulin [Mass ratio] 1.4 {ratio} [facility] Serum or plasma alkaline jaqueline sphatase measurement (enzymatic activity/volume)Ordered By: Reinaldo Amor on 10-04-2021 ALP [Catalytic activity/Vol] 103 U/L 32-92 [facility] Serum or plasma amylase priscilla urement (enzymatic activity/volume)Ordered By: Reinaldo Amor on 10-04-2021 Amylase [Catalytic activity/Vol] 134 U/L 28-100 [facility] Serum or plasma aspartate am inotransferase measurement (enzymatic activity/volume)Ordered By: Reinaldo Amor on 10-04-2021 AST [Catalytic activity/Vol] 20 U/L 10-42 [facility] Serum or plasma calcium priscilla urement (mass/volume)Ordered By: Reinaldo Amor on 10-04-2021 Calcium [Mass/Vol] 9.6 mg/dL 8.2-10.2 [facility] Serum or plasma chloride daron surement (moles/volume)Ordered By: Reinaldo Amor on 10-04-2021 Chloride [Moles/Vol] 103 mmol/L 95-114 [facility] Serum or plasma ethanol priscilla urement (mass/volume)Ordered By: Reinaldo Amor on 10-04-2021 Ethanol [Mass/Vol] mg/dL [facility] Ethanol [Mass/Vol] TNP [facility] Comment on above: Test not performed Serum or plasma glucose priscilla urement (mass/volume)Ordered By: Reinaldo Amor on 10-04-2021 Glucose [Mass/Vol] 120 mg/dL 70-100 [facility] Comment on above: ADA recommended refe rence range Random Glucose Reference Range is dependent on time and content of last meal. Glucose of more than 200 mg/dL in a nonstressed, ambulatory subject supports the diagnosis of Diabetes Mellitus. Serum or plasma non-glucuron idated bilirubin measurement (mass/volume)Ordered By: Reinaldo Amor on 10-04-2021 Bilirubin.indirect [Mass/Vol] TNP [facility] Comment on above: Test not performed Serum or plasma potassium me asurement (moles/volume)Ordered By: Reinaldo Amor on 10-04-2021 Potassium [Moles/Vol] 3.7 mmol/L 3.5-5.1 [facility] Serum or plasma sodium measu rement (moles/volume)Ordered By: Reinaldo Amor on 10-04-2021 Sodium [Moles/Vol] 137 mmol/L 136-146 [facility] Serum or plasma total biliru bin measurement (mass/volume)Ordered By: Reinaldo Amor on 10-04-2021 Bilirubin [Mass/Vol] 0.5 mg/dL 0.3-1.2 [facility] Serum or plasma total carbon dioxide measurement (moles/volume)Ordered By: Reinaldo Amor on 10-04-2021 CO2 [Moles/Vol] 24.9 mmol/L 22.0-30.0 [facility] Serum or plasma urea nitroge n measurement (mass/volume)Ordered By: Reinaldo Amor on 10-04-2021 Urea nitrogen [Mass/Vol] 7 mg/dL 9-23 [facility] Urine appearanceOrdered By: Reinaldo Amor on 10-04-2021 Appearance (U) Clear Clear [facility] Urine colorOrdered By: Ml Amor on 10-04-2021 Color (U) Yellow Yellow [facility] Urine glucose measurement by automated test strip (mass/volume)Ordered By: Reinaldo Amor on 10-04-2021 Glucose Auto test strip (U) [Mass/Vol] Normal mg/dL Normal [facility] Urine hemoglobin detection b y automated test stripOrdered By: Reinaldo Amor on 10-04-2021 Hemoglobin Auto test strip Ql (U) Negative Negative [facility] Urine leukocyte esterase det ection by automated test stripOrdered By: Reinaldo Amor on 10-04-2021 Leukocyte esterase Auto test strip Ql (U) Negative Negative [facility] Urine nitrite detection by a utomated test stripOrdered By: Reinaldo Amor on 10-04-2021 Nitrite Auto test strip Ql (U) Negative Negative [facility] Urobilinogen Auto test strip (U) [Mass/Vol]Ordered By: Reinaldo Amor on 10-04-2021 Urobilinogen (U) [Mass/Vol] Normal mg/dL Normal [facility] pH Auto test strip (U)Ordere d By: Reinaldo Amor on 10-04-2021 pH (U) 1.030 [pH] 1.001-1.03 0 [facility] pH (U) 5.5 [pH] 5.0-9.0 [facility] Basophils Auto (Bld) [#/Vol] Ordered By: Reinaldo Amor on 09-25-2021 Basophils (Bld) [#/Vol] 0.1 10*3/uL 0.0-0.2 [facility] Basophils/100 WBC Auto (Bld) Ordered By: Reinaldo Amor on 09-25-2021 Basophils/100 WBC (Bld) 1.2 % . [facility] Blood hemoglobin measurement (mass/volume)Ordered By: Reinaldo Amor on 09-25-2021 Hemoglobin (Bld) [Mass/Vol] 14.2 g/dL 11.8-15.4 [facility] Blood leukocytes automated c ount (number/volume)Ordered By: Reinaldo Amor on 09-25-2021 WBC (Bld) [#/Vol] 9.3 10*3/uL 4.5-11.0 [facility] Body fluid albumin measureme nt (mass/volume)Ordered By: PROVIDER JONATHAN on 09-25-2021 Albumin (Body fld) [Mass/Vol] 4.3 g/dL 3.2-5.5 [facility] Creatinine and Glomerular fi ltration rate.predicted panel (S/P/Bld)Ordered By: PROVIDER JONATHAN on 09-25-2021 Creatinine [Mass/Vol] 0.82 mg/dL 0.44-1.03 [facility] Eosinophils Auto (Bld) [#/Vo l]Ordered By: Reinaldo Amor on 09-25-2021 Eosinophils (Bld) [#/Vol] 0.2 10*3/uL 0.0-0.45 [facility] Eosinophils/100 WBC Auto (Bl d)Ordered By: Reinaldo Amor on 07-20-2022 Eosinophils/100 WBC (Bld) 1.9 % . [facility] Erythrocyte distribution wid th Auto (RBC) [Ratio]Ordered By: Reinaldo Amor on 09-25-2021 Erythrocyte distribution width (RBC) [Ratio] 13.7 % 11.9-15.3 [facility] Estimated glomerular filtrat ion rate (GFR) non- AmericanOrdered By: PROVIDER TEMP on 09-25-2021 GFR/1.73 sq M.predicted among non-blacks MDRD (S/P/Bld) [Vol rate/Area] > 60 mL/Min [facility] Globulin Calc (S) [Mass/Vol] Ordered By: PROVIDER TEMP on 09-25-2021 Globulin (S) [Mass/Vol] 3.3 g/dL [facility] Hematocrit Auto (Bld) [Volum e fraction]Ordered By: Reinaldo Amor on 09-25-2021 Hematocrit (Bld) [Volume fraction] 42.1 % 34.0-46.4 [facility] - Chemistry and C hemistry - challengeOrdered By: Reinaldo Amor on 09-25-2021 Lipase [Catalytic activity/Vol] 64.0 U/L 22-51 [facility] - Hematology and Cell countsOrdered By: Reinaldo Amor on 09-25-2021 Nucleated RBC/100 WBC (Bld) [Ratio] 0.1 % 0-0.5 [facility] Lymphocytes Auto (Bld) [#/Vo l]Ordered By: Reinaldo Amor on 09-25-2021 Lymphocytes (Bld) [#/Vol] 2.6 10*3/uL 1.00-4.8 [facility] Lymphocytes/100 WBC Auto (Bl d)Ordered By: Reinaldo Amor on 09-25-2021 Lymphocytes/100 WBC (Bld) 28.1 % . [facility] MCH Auto (RBC) [Entitic mass ]Ordered By: Reinaldo Amor on 09-25-2021 MCH (RBC) [Entitic mass] 32.5 pg 24.7-34.3 [facility] MCHC Auto (RBC) [Mass/Vol]Or dered By: Reinaldo Amor on 09-25-2021 MCHC (RBC) [Mass/Vol] 33.7 g/dL 32.0-35.0 [facility] MCV Auto (RBC) [Entitic vol] Ordered By: Reinaldo Amor on 09-25-2021 MCV (RBC) [Entitic vol] 96.7 fL 80-100 [facility] Monocytes Auto (Bld) [#/Vol] Ordered By: Reinaldo Amor on 09-25-2021 Monocytes (Bld) [#/Vol] 0.8 10*3/uL 0.0-0.8 [facility] Monocytes/100 WBC Auto (Bld) Ordered By: Reinaldo Amor on 09-25-2021 Monocytes/100 WBC (Bld) 8.2 % . [facility] Neutrophils Auto (Bld) [#/Vo l]Ordered By: Reinaldo Amor on 09-25-2021 Neutrophils (Bld) [#/Vol] 5.6 10*3/uL 1.8-7.7 [facility] Neutrophils/100 WBC Auto (Bl d)Ordered By: Reinaldo Amor on 09-25-2021 Neutrophils/100 WBC (Bld) 60.6 % . [facility] No Panel InformationOrdered By: PROVIDER TEMP on 09-25-2021 Estimated GFR () > 60 mL/Min [facility] Comment on above: GFR estimated refere nce range: According to KDOQI guidelines, <60 ml/min/1.73m2 is sufficient to diagnose a patient with chronic kidney disease. Pharmacy Creatinine Clearance (Chem 63.47 [facility] Platelet mean volume Auto (B ld) [Entitic vol]Ordered By: Reinaldo Amor on 09-25-2021 Platelet mean volume (Bld) [Entitic vol] 8.6 fL 6.3-10.7 [facility] Platelets Auto (Bld) [#/Vol] Ordered By: Reinaldo Amor on 09-25-2021 Platelets (Bld) [#/Vol] 221 10*3/uL 150-450 [facility] Protein [Mass/volume] in Ser um or PlasmaOrdered By: PROVIDER TEMP on 09-25-2021 Protein [Mass/Vol] 7.6 g/dL 6.1-7.9 [facility] RBC Auto (Bld) [#/Vol]Ordere d By: Reinaldo Amor on 09-25-2021 RBC (Bld) [#/Vol] 4.35 10*6/uL 3.60-5.00 [facility] Serum or plasma alanine hughes otransferase measurement without P-5'-P (enzymatic activiOrdered By: PROVIDER TEMP on 09-25-2021 ALT No additional P-5'-P [Catalytic activity/Vol] 14 U/L 10-60 [facility] Serum or plasma albumin/glob ulin mass ratioOrdered By: PROVIDER TEMP on 09-25-2021 Albumin/Globulin [Mass ratio] 1.3 {ratio} [facility] Serum or plasma alkaline jaqueline sphatase measurement (enzymatic activity/volume)Ordered By: PROVIDER TEMP on 09-25-2021 ALP [Catalytic activity/Vol] 127 U/L 32-92 [facility] Serum or plasma amylase priscilla urement (enzymatic activity/volume)Ordered By: Reinaldo Amor on 09-25-2021 Amylase [Catalytic activity/Vol] 171 U/L 28-100 [facility] Serum or plasma aspartate am inotransferase measurement (enzymatic activity/volume)Ordered By: PROVIDER TEMP on 09-25-2021 AST [Catalytic activity/Vol] 21 U/L 10-42 [facility] Serum or plasma calcium priscilla urement (mass/volume)Ordered By: PROVIDER TEMP on 09-25-2021 Calcium [Mass/Vol] 10.1 mg/dL 8.2-10.2 [facility] Serum or plasma chloride daron surement (moles/volume)Ordered By: PROVIDER TEMP on 09-25-2021 Chloride [Moles/Vol] 103 mmol/L 95-114 [facility] Serum or plasma glucose priscilla urement (mass/volume)Ordered By: PROVIDER TEMP on 09-25-2021 Glucose [Mass/Vol] 93 mg/dL 70-100 [facility] Comment on above: ADA recommended refe rence [...] on 09-25-2021 Sodium [Moles/Vol] 137 mmol/L 136-146 [facility] Serum or plasma total biliru bin measurement (mass/volume)Ordered By: PROVIDER TEMP on 09-25-2021 Bilirubin [Mass/Vol] 0.3 mg/dL 0.3-1.2 [facility] Serum or plasma total carbon dioxide measurement (moles/volume)Ordered By: PROVIDER TEMP on 09-25-2021 CO2 [Moles/Vol] 26.3 mmol/L 22.0-30.0 [facility] Serum or plasma urea nitroge n measurement (mass/volume)Ordered By: PROVIDER TEMP on 09-25-2021 Urea nitrogen [Mass/Vol] 8 mg/dL 9-23 [facility] AMYLASEon 09-17-2021 Amylase [Catalytic activity/Vol] 142 U/L Critically high 25-115 [facility] Comment on above: Performed By: #### A MY, CMP, LIPA ####[facility] [address] [place] [address]Dr. Keturah Fisher CBC AUTO DIFFon 09-17-2021 BASO # 0.1 103/ul Normal 0.0-0.1 [facility] Comment on above: Performed By: #### C BC ####[facility] [address] [place] [address]Dr. Keturah Fisher Basophils/100 WBC (Bld) 0.7 % Normal 0.2-2.0 [facility] Comment on above: Performed By: #### C BC ####[facility] [address] [place] [address]DrGopal Fisher EO # 0.1 103/ul Normal 0.0-0.7 [facility] Comment on above: Performed By: #### C BC ####[facility] [address] [place] [address]DrGopal Fisher Eosinophils/100 WBC (Bld) 1.3 % Normal 0.9-7.0 [facility] Comment on above: Performed By: #### C BC ####[facility] [address] [place] [address]Dr. Keturah Fisher Erythrocyte distribution width (RBC) [Ratio] 13.2 % Normal 11.0-15.0 [facility] Comment on above: Performed By: #### C BC ####[facility] [address] [place], [place] [address]Dr. Elisalei Phillip Hematocrit (Bld) [Volume fraction] 43.7 % Normal 36.0-48.0 [facility] Comment on above: Performed By: #### C BC ####[facility] [address] [place], [place] [address]Dr. Keturah Fisher Hemoglobin (Bld) [Mass/Vol] 14.7 g/dL Normal 12.0-16.0 [facility] Comment on above: Performed By: #### C BC ####[facility] [address] [place], [place] [address]Dr. Keturah Fisher IG # 0.01 10e3/ul Normal 0.00-0.03 [facility] Comment on above: Performed By: #### C BC ####[facility] [address] [place], [place] [address]Dr. Keturah Fisher IG % 0.1 % Normal 0.0-0.5 [facility] Comment on above: Performed By: #### C BC ####[facility] [address] [place], [place] [address]Dr. Keturah Fisher LYMPH # 2.7 103/ul Normal 1.2-3.8 [facility] Comment on above: Performed By: #### C BC ####[facility] [address] [place], [place] [address]Dr. Keturah Fisher Lymphocytes/100 WBC (Bld) 30.1 % Normal 20.5-60.0 [facility] Comment on above: Performed By: #### C BC ####[facility] [address] [place], [place] [address]Dr. Keturah Fisher MANUAL DIFF REQ NO Normal [facility] Comment on above: Performed By: #### C BC ####[facility] [address] [place] [address]DrGopal Keturah Phillip MCH (RBC) [Entitic mass] 32.4 pg Normal 26.7-34.0 [facility] Comment on above: Performed By: #### C BC ####[facility] [address] [place] [address]DrGopal Fisher MCHC (RBC) [Mass/Vol] 33.6 g/dL Normal 29.9-35.2 [facility] Comment on above: Performed By: #### C BC ####[facility] [address] [place] [address]DrGopal Fisher MCV (RBC) [Entitic vol] 96.3 fL Normal 81.0-99.0 [facility] Comment on above: Performed By: #### C BC ####[facility] [address] [place], [place] [address]DrGopal Fisher MONO # 0.8 103/ul Normal 0.3-0.8 [facility] Comment on above: Performed By: #### C BC ####[facility] [address] [place], [place] [address]DrGopal Fisher Monocytes/100 WBC (Bld) 8.7 % Normal 1.7-12.0 [facility] Comment on above: Performed By: #### C BC ####[facility] [address] [place], [place] [address]DrGopal Fisher NEUT # 5.4 103/ul Normal 1.4-6.5 [facility] Comment on above: Performed By: #### C BC ####[facility] [address] [place], [place] [address]DrGopal Fisher Neutrophils/100 WBC (Bld) 59.1 % Normal 43.0-75.0 [facility] Comment on above: Performed By: #### C BC ####[facility] [address] [place], [place] [address]DrGopal Fisher Platelet mean volume (Bld) [Entitic vol] 9.6 fL Normal 9.5-13.5 [facility] Comment on above: Performed By: #### C BC ####[facility] [address] [place] [id number] Fisher PLT 272 103/ul Normal 150-450 [facility] Comment on above: Performed By: #### C BC ####[facility] [address] [place] [id number]. Keturah Fisher RBC 4.54 106/ul Normal 4.20-5.40 [facility] Comment on above: Performed By: #### C BC ####[facility] [address] [place] [id number]. Keturah Fisher WBC 9.1 103/ul Normal 4.0-11.0 [facility] Comment on above: Performed By: #### C BC ####[facility] [address] [place] [id number]. Keturah Fisher ETHANOL (BLD ALC)on 09-18-19 22 ALC NOTE NOTE: 80 mg/dl is th e legal limit for a blood alcohol level Normal [facility] Comment on above: Performed By: #### L IPA, CMP, CRP, NAT #### [facility] [address] [place] [address] [address] Keturah Fisher Ethanol [Mass/Vol] mg/dL Normal [facility] Comment on above: Performed By: #### L IPA, CMP, CRP, NAT #### [facility] [address] [address] [address] Keturah Fisher LIPASEon 09-17-2021 Lipase [Catalytic activity/Vol] 524.0 U/L Critically high 73.0-393.0 [facility] Comment on above: Performed By: #### C BC #### [facility] [address] [address] [address] Keturah Fisher PROF 14(COMP METB)on 022 Albumin [Mass/Vol] 3.9 g/dL Normal 3.4-5.0 [facility] Comment on above: Performed By: #### C BC #### [facility] [address] [place] [address] Dr. Keturah Fisher Albumin/Globulin [Mass ratio] 1.1 {ratio} Normal [facility] Comment on above: Performed By: #### C BC #### [facility] [address] [place] [address] Dr. Keturah Fisher ALP [Catalytic activity/Vol] 136 U/L Critically high 46-116 [facility] Comment on above: Performed By: #### C BC #### [facility] [address] [place] [address] Dr. Keturah Fisher ALT [Catalytic activity/Vol] 21 U/L Normal 14-59 [facility] Comment on above: Performed By: #### C BC #### [facility] [address] [place] [address] Dr. Keturah Fisher Anion gap [Moles/Vol] 12.7 mmol/L Normal [facility] Comment on above: Performed By: #### C BC #### [facility] [address] [place] [address] Dr. Keturah Fisher AST [Catalytic activity/Vol] 16 U/L Normal 15-37 [facility] Comment on above: Performed By: #### C BC #### [facility] [address] [place] [address] Dr. Keturah Fisher Bilirubin [Mass/Vol] 0.2 mg/dL Normal 0.2-1.0 [facility] Comment on above: Performed By: #### C BC #### [facility] [address] [place] [address] Dr. Keturah Fisher Calcium [Mass/Vol] 9.9 mg/dL Normal 8.5-10.1 [facility] Comment on above: Performed By: #### C BC #### [facility] [address] [place] [address] Dr. Keturah Fisher Chloride [Moles/Vol] 106 mmol/L Normal 98-107 [facility] Comment on above: Performed By: #### C BC #### [facility] [address] [place] [address] Dr. Keturah Fisher CO2 [Moles/Vol] 25.9 mmol/L Normal 21.0-32.0 [facility] Comment on above: Performed By: #### C BC #### [facility] [address] [address] [address] Keturah Fisher Creatinine [Mass/Vol] 0.96 mg/dL Normal 0.55-1.02 [facility] Comment on above: Performed By: #### C BC #### [facility] [address] [address] [address] Keturah Fisher EGFR-AF MALTESE >60 Normal >=60 [facility] Comment on above: Performed By: #### C BC #### [facility] [address] [place] [address] Dr. Keturah Fisher EGFR-NON AF MALTESE >60 Normal >=60 [facility] Comment on above: Performed By: #### C BC #### [facility] [address] [place] [address] Dr. Keturah Fisher Globulin (S) [Mass/Vol] 3.5 g/dL Normal [facility] Comment on above: Performed By: #### C BC #### [facility] [address] [address] [address] Keturah Fisher Glucose [Mass/Vol] 113 mg/dL Critically high 74-106 [facility] Comment on above: Performed By: #### C BC #### [facility] [address] [place] [address] Dr. Keturah Fisher Potassium [Moles/Vol] 3.6 mmol/L Normal 3.5-5.1 [facility] Comment on above: Performed By: #### C BC #### [facility] [address] [address] [address] Keturah Fisher Protein [Mass/Vol] 7.4 g/dL Normal 6.4-8.2 [facility] Comment on above: Performed By: #### C BC #### [facility] [address] [place] [address] Dr. Keturah Fisher Sodium [Moles/Vol] 141 mmol/L Normal 136-145 [facility] Comment on above: Performed By: #### C BC #### [facility] [address] [address] [address] Keturah Fisher Urea nitrogen [Mass/Vol] 8.0 mg/dL Normal 7.0-18.0 [facility] Comment on above: Performed By: #### C BC #### [facility] [address] [address] [address] Keturah Fisher Urea nitrogen/Creatinine [Mass ratio] 8.3 mg/mg Normal [facility] Comment on above: Performed By: #### C BC #### [facility] [address] [address] [address] Keturah Fisher AMYLASEon 08-26-2021 Amylase [Catalytic activity/Vol] 94 U/L Normal 25-115 [facility] Comment on above: Performed By: #### A MY, CMP, LIPA ####[facility] [address] [place] [address]Dr. Keturah Fisher CBC AUTO DIFFon 08-26-2021 BASO # 0.1 103/ul Normal 0.0-0.1 [facility] Comment on above: Performed By: #### L IPA, CMP, CRP, NAT #### [facility] [address] [place] [address] Dr. Keturah Fisher Basophils/100 WBC (Bld) 0.7 % Normal 0.2-2.0 [facility] Comment on above: Performed By: #### L IPA, CMP, CRP, NAT #### [facility] [address] [address] [address] Keturah Fisher EO # 0.2 103/ul Normal 0.0-0.7 [facility] Comment on above: Performed By: #### L IPA, CMP, CRP, NAT #### [facility] [address] [place] [address] Dr. Keturah Fisher Eosinophils/100 WBC (Bld) 2.5 % Normal 0.9-7.0 [facility] Comment on above: Performed By: #### L IPA, CMP, CRP, NAT #### [facility] [address] [place] [address] Dr. Keturah Fisher Erythrocyte distribution width (RBC) [Ratio] 13.1 % Normal 11.0-15.0 [facility] Comment on above: Performed By: #### L IPA, CMP, CRP, NAT #### [facility] [address] [address] [address] Keturah Fisher Hematocrit (Bld) [Volume fraction] 42.4 % Normal 36.0-48.0 [facility] Comment on above: Performed By: #### L IPA, CMP, CRP, NAT #### [facility] [address] [address] [address] Keturah Fisher Hemoglobin (Bld) [Mass/Vol] 14.1 g/dL Normal 12.0-16.0 [facility] Comment on above: Performed By: #### L IPA, CMP, CRP, NAT #### [facility] [address] [address] [address] Keturah Fisher IG # 0.03 10e3/ul Normal 0.00-0.03 [facility] Comment on above: Performed By: #### L IPA, CMP, CRP, NAT #### [facility] [address] [address] [address] Keturah Fisher IG % 0.3 % Normal 0.0-0.5 [facility] Comment on above: Performed By: #### L IPA, CMP, CRP, NAT #### [facility] [address] [address] [address] Keturah Fisher LYMPH # 2.6 103/ul Normal 1.2-3.8 [facility] Comment on above: Performed By: #### L IPA, CMP, CRP, NAT #### [facility] [address] [address] [address] Keturah Fisher Lymphocytes/100 WBC (Bld) 27.7 % Normal 20.5-60.0 [facility] Comment on above: Performed By: #### L IPA, CMP, CRP, NAT #### [facility] [address] [address] [address] Keturah Fisher MANUAL DIFF REQ NO Normal [facility] Comment on above: Performed By: #### L IPA, CMP, CRP, NAT #### [facility] [address] [place] [address] Dr. Keturah Fisher MCH (RBC) [Entitic mass] 32.6 pg Normal 26.7-34.0 [facility] Comment on above: Performed By: #### L IPA, CMP, CRP, NAT #### [facility] [address] [place] [address] Dr. Keturah Fisher MCHC (RBC) [Mass/Vol] 33.3 g/dL Normal 29.9-35.2 [facility] Comment on above: Performed By: #### L IPA, CMP, CRP, NAT #### [facility] [address] [place] [address] Dr. Keturah Fisher MCV (RBC) [Entitic vol] 97.9 fL Normal 81.0-99.0 [facility] Comment on above: Performed By: #### L IPA, CMP, CRP, NAT #### [facility] [address] [place] [address] Dr. Keturah Fisher MONO # 1.2 103/ul Critically high 0.3-0.8 [facility] Comment on above: Performed By: #### L IPA, CMP, CRP, NAT #### [facility] [address] [place] [address] Dr. Keturah Fisher Monocytes/100 WBC (Bld) 12.9 % Critically high 1.7-12.0 [facility] Comment on above: Performed By: #### L IPA, CMP, CRP, NAT #### [facility] [address] [place] [address] Dr. Keturah Fisher NEUT # 5.3 103/ul Normal 1.4-6.5 [facility] Comment on above: Performed By: #### L IPA, CMP, CRP, NAT #### [facility] [address] [place] [address] Dr. Keturah Fisher Neutrophils/100 WBC (Bld) 55.9 % Normal 43.0-75.0 [facility] Comment on above: Performed By: #### L IPA, CMP, CRP, NAT #### [facility] [address] [address] [address] Keturah Fisher Platelet mean volume (Bld) [Entitic vol] 9.8 fL Normal 9.5-13.5 [facility] Comment on above: Performed By: #### L IPA, CMP, CRP, NAT #### [facility] [address] [address] [address] Keturah Fisher PLT 229 103/ul Normal 150-450 [facility] Comment on above: Performed By: #### L IPA, CMP, CRP, NAT #### [facility] [address] [address] [address] Keturah Fisher RBC 4.33 106/ul Normal 4.20-5.40 [facility] Comment on above: Performed By: #### L IPA, CMP, CRP, NAT #### [facility] [address] [address] [address] Keturah Fisher WBC 9.5 103/ul Normal 4.0-11.0 [facility] Comment on above: Performed By: #### L IPA, CMP, CRP, NAT #### [facility] [address] [address] [address] Keturah Fisher LIPASEon 08-26-2021 Lipase [Catalytic activity/Vol] 146.0 U/L Normal 73.0-393.0 [facility] Comment on above: Performed By: #### A MY, CMP, LIPA ####[facility] [address] [place] [address]Dr. Keturah Fisher PROF 14(COMP METB)on 022 Albumin [Mass/Vol] 3.5 g/dL Normal 3.4-5.0 [facility] Comment on above: Performed By: #### A MY, CMP, LIPA ####[facility] [address] [place] [address]Dr. Keturah Fisher Albumin/Globulin [Mass ratio] 1.1 {ratio} Normal [facility] Comment on above: Performed By: #### A MY, CMP, LIPA ####[facility] [address] [place] [address]Dr. Keturah Fisher ALP [Catalytic activity/Vol] 139 U/L Critically high 46-116 [facility] Comment on above: Performed By: #### A MY, CMP, LIPA ####[facility] [address] [place] [address]Dr. Keturah Fisher ALT [Catalytic activity/Vol] 21 U/L Normal 14-59 [facility] Comment on above: Performed By: #### A MY, CMP, LIPA ####[facility] [address] [place] [address]Dr. Keturah Fisher Anion gap [Moles/Vol] 11.4 mmol/L Normal [facility] Comment on above: Performed By: #### A MY, CMP, LIPA ####[facility] [address] [place] [address]Dr. Keturah Fisher AST [Catalytic activity/Vol] 21 U/L Normal 15-37 [facility] Comment on above: Performed By: #### A MY, CMP, LIPA ####[facility] [address] [place] [address]Dr. Keturah Fisher Bilirubin [Mass/Vol] 0.2 mg/dL Normal 0.2-1.0 [facility] Comment on above: Performed By: #### A MY, CMP, LIPA ####[facility] [address] [place] [address]Dr. Keturah Fisher Calcium [Mass/Vol] 9.2 mg/dL Normal 8.5-10.1 [facility] Comment on above: Performed By: #### A MY, CMP, LIPA ####[facility] [address] [place] [address]Dr. Keturah Fisher Chloride [Moles/Vol] 107 mmol/L Normal 98-107 [facility] Comment on above: Performed By: #### A MY, CMP, LIPA ####[facility] [address] [place] [address]Dr. Keturah Fisher CO2 [Moles/Vol] 27.9 mmol/L Normal 21.0-32.0 [facility] Comment on above: Performed By: #### A MY, CMP, LIPA ####[facility] [address] [place] [id number]. Keturah Fisher Creatinine [Mass/Vol] 0.84 mg/dL Normal 0.55-1.02 [facility] Comment on above: Performed By: #### A MY, CMP, LIPA ####[facility] [address] [place] [address]Dr. Keturah Fisher EGFR-AF MALTESE >60 Normal >=60 [facility] Comment on above: Performed By: #### A MY, CMP, LIPA ####[facility] [address] [place] [address]Dr. Keturah Fisher EGFR-NON AF MALTESE >60 Normal >=60 [facility] Comment on above: Performed By: #### A MY, CMP, LIPA ####[facility] [address] [place] [address]Dr. Keturah Fisher Globulin (S) [Mass/Vol] 3.3 g/dL Normal [facility] Comment on above: Performed By: #### A MY, CMP, LIPA ####[facility] [address] [place], [place] [address]Dr. Keturah Fisher Glucose [Mass/Vol] 106 mg/dL Normal 74-106 [facility] Comment on above: Performed By: #### A MY, CMP, LIPA ####[facility] [address] [place] [address]Dr. Keturah Fisher Potassium [Moles/Vol] 4.3 mmol/L Normal 3.5-5.1 [facility] Comment on above: Performed By: #### A MY, CMP, LIPA ####[facility] [address] [place] [address]Dr. Keturah Fisher Protein [Mass/Vol] 6.8 g/dL Normal 6.4-8.2 [facility] Comment on above: Performed By: #### A MY, CMP, LIPA ####[facility] [address] [place] [address]Dr. Keturah Fisher Sodium [Moles/Vol] 142 mmol/L Normal 136-145 [facility] Comment on above: Performed By: #### A MY, CMP, LIPA ####[facility] [address] [place], [place] [address]Sb. Keturah Fisher Urea nitrogen [Mass/Vol] 11.0 mg/dL Normal 7.0-18.0 [facility] Comment on above: Performed By: #### A MY, CMP, LIPA ####[facility] [address] [place], [place] [address]Gd. Keturah Fisher Urea nitrogen/Creatinine [Mass ratio] 13.1 mg/mg Normal [facility] Comment on above: Performed By: #### A MY, CMP, LIPA ####[facility] [address] [place], [place] [address]Cz. Keturah Fisher XR ABD FLAT UP_PA Jorje [...] MILADIS BARRERA Date: 2021-08-26 04:59 Normal [facility] AMYLASEon 08-22-2021 Amylase [Catalytic activity/Vol] 155 U/L Critically high 25-115 [facility] Comment on above: Performed By: #### C MP, NAT, LIPA #### [facility] [address] [address] [address] Keturah Fisher CBC AUTO DIFFon 08-22-2021 BASO # 0.1 103/ul Normal 0.0-0.1 [facility] Comment on above: Performed By: #### L IPA, CMP, CRP, NAT #### [facility] [address] [place] [address] Dr. Keturah Fisher Basophils/100 WBC (Bld) 0.7 % Normal 0.2-2.0 [facility] Comment on above: Performed By: #### L IPA, CMP, CRP, NAT #### [facility] [address] [place] [address] Dr. Keturah Fisher EO # 0.1 103/ul Normal 0.0-0.7 [facility] Comment on above: Performed By: #### L IPA, CMP, CRP, NAT #### [facility] [address] [place] [address] Dr. Keturah Fisher Eosinophils/100 WBC (Bld) 0.7 % Critically low 0.9-7.0 [facility] Comment on above: Performed By: #### L IPA, CMP, CRP, NAT #### [facility] [address] [place] [address] Dr. Keturah Fisher Erythrocyte distribution width (RBC) [Ratio] 13.2 % Normal 11.0-15.0 [facility] Comment on above: Performed By: #### L IPA, CMP, CRP, NAT #### [facility] [address] [place] [address] Dr. Keturah Fisher Hematocrit (Bld) [Volume fraction] 41.1 % Normal 36.0-48.0 [facility] Comment on above: Performed By: #### L IPA, CMP, CRP, NAT #### [facility] [address] [place] [address] Dr. Keturah Fisher Hemoglobin (Bld) [Mass/Vol] 13.8 g/dL Normal 12.0-16.0 [facility] Comment on above: Performed By: #### L IPA, CMP, CRP, NAT #### [facility] [facility] [address] [place] [address] Dr. Keturah Fisher IG # 0.03 10e3/ul Normal 0.00-0.03 [facility] Comment on above: Performed By: #### L IPA, CMP, CRP, NAT #### [facility] [address] [place] [address] Dr. Keturah Fisher IG % 0.2 % Normal 0.0-0.5 [facility] Comment on above: Performed By: #### L IPA, CMP, CRP, NAT #### [facility] [address] [place] [address] Dr. Keturah Fisher LYMPH # 2.6 103/ul Normal 1.2-3.8 [facility] Comment on above: Performed By: #### L IPA, CMP, CRP, NAT #### [facility] [address] [place] [address] Dr. Keturah Fisher Lymphocytes/100 WBC (Bld) 21.4 % Normal 20.5-60.0 [facility] Comment on above: Performed By: #### L IPA, CMP, CRP, NAT #### [facility] [address] [place] [address] Dr. Keturah Fisher MANUAL DIFF REQ NO Normal [facility] Comment on above: Performed By: #### L IPA, CMP, CRP, NAT #### [facility] [address] [place] [address] Dr. Keturah Fisher MCH (RBC) [Entitic mass] 32.2 pg Normal 26.7-34.0 [facility] Comment on above: Performed By: #### L IPA, CMP, CRP, NAT #### [facility] [address] [place] [address] Dr. Keturah Fisher MCHC (RBC) [Mass/Vol] 33.6 g/dL Normal 29.9-35.2 [facility] Comment on above: Performed By: #### L IPA, CMP, CRP, NAT #### [facility] [address] [place] [address] Dr. Keturah Fisher MCV (RBC) [Entitic vol] 95.8 fL Normal 81.0-99.0 [facility] Comment on above: Performed By: #### L IPA, CMP, CRP, NAT #### [facility] [address] [address] [address] Keturah Fisher MONO # 0.9 103/ul Critically high 0.3-0.8 [facility] Comment on above: Performed By: #### L IPA, CMP, CRP, NAT #### [facility] [address] [place] [address] Dr. Keturah Fisher Monocytes/100 WBC (Bld) 7.6 % Normal 1.7-12.0 [facility] Comment on above: Performed By: #### L IPA, CMP, CRP, NAT #### [facility] [address] [place] [address] Dr. Keturah Fisher NEUT # 8.5 103/ul Critically high 1.4-6.5 [facility] Comment on above: Performed By: #### L IPA, CMP, CRP, NAT #### [facility] [address] [place] [address] Dr. Keturah Fisher Neutrophils/100 WBC (Bld) 69.4 % Normal 43.0-75.0 [facility] Comment on above: Performed By: #### L IPA, CMP, CRP, NAT #### [facility] [address] [place] [address] Dr. Keturah Fisher Platelet mean volume (Bld) [Entitic vol] 9.5 fL Normal 9.5-13.5 [facility] Comment on above: Performed By: #### L IPA, CMP, CRP, NAT #### [facility] [address] [place] [address] Dr. Keturah Fisher PLT 261 103/ul Normal 150-450 [facility] Comment on above: Performed By: #### L IPA, CMP, CRP, NAT #### [facility] [address] [place] [address] Dr. Keturah Fisher RBC 4.29 106/ul Normal 4.20-5.40 [facility] Comment on above: Performed By: #### L IPA, CMP, CRP, NAT #### [facility] [address] [place] [address] Dr. Keturah Fisher WBC 12.2 103/ul Critically high 4.0-11.0 [facility] Comment on above: Performed By: #### L IPA, CMP, CRP, NAT #### [facility] [address] [place] [address] Dr. Keturah Fisher LIPASEon 08-22-2021 Lipase [Catalytic activity/Vol] 419.0 U/L Critically high 73.0-393.0 [facility] Comment on above: Performed By: #### C MP, NAT, LIPA #### [facility] [address] [place] [address] Dr. Keturah Fisher PROF 14(COMP METB)on 022 Albumin [Mass/Vol] 3.9 g/dL Normal 3.4-5.0 [facility] Comment on above: Performed By: #### C MP, NAT, LIPA #### [facility] [address] [place] [address] Dr. Keturah Fisher Albumin/Globulin [Mass ratio] 1.2 {ratio} Normal [facility] Comment on above: Performed By: #### C MP, NAT, LIPA #### [facility] [address] [place] [address] Dr. Keturah Fisher ALP [Catalytic activity/Vol] 137 U/L Critically high 46-116 [facility] Comment on above: Performed By: #### C MP, NAT, LIPA #### [facility] [address] [place] [address] Dr. Keturah Fisher ALT [Catalytic activity/Vol] 22 U/L Normal 14-59 [facility] Comment on above: Performed By: #### C MP, NAT, LIPA #### [facility] [address] [place] [address] Dr. Keturah Fisher Anion gap [Moles/Vol] 12.9 mmol/L Normal [facility] Comment on above: Performed By: #### C MP, NAT, LIPA #### [facility] [address] [place] [address] Dr. Keturah Fisher AST [Catalytic activity/Vol] 20 U/L Normal 15-37 [facility] Comment on above: Performed By: #### C MP, NAT, LIPA #### [facility] [address] [place] [address] Dr. Keturah Fisher Bilirubin [Mass/Vol] 0.2 mg/dL Normal 0.2-1.0 [facility] Comment on above: Performed By: #### C MP, NAT, LIPA #### [facility] [address] [place] [address] Dr. Keturah Fisher Calcium [Mass/Vol] 9.5 mg/dL Normal 8.5-10.1 [facility] Comment on above: Performed By: #### C MP, NAT, LIPA #### [facility] [address] [place] [address] Dr. Keturah Fisher Chloride [Moles/Vol] 104 mmol/L Normal 98-107 [facility] Comment on above: Performed By: #### C MP NAT, LIPA #### [facility] [address] [place] [address] Dr. Keturah Fisher CO2 [Moles/Vol] 23.7 mmol/L Normal 21.0-32.0 [facility] Comment on above: Performed By: #### C MP, NAT, LIPA #### [facility] [address] [place] [address] Dr. Keturah Fisher Creatinine [Mass/Vol] 0.85 mg/dL Normal 0.55-1.02 [facility] Comment on above: Performed By: #### C MP NAT, LIPA #### [facility] [address] [place] [address] Dr. Keturah Fisher EGFR-AF MALTESE >60 Normal >=60 [facility] Comment on above: Performed By: #### C MP, NAT, LIPA #### [facility] [address] [place] [address] Dr. Keturah Fisher EGFR-NON AF MALTESE >60 Normal >=60 [facility] Comment on above: Performed By: #### C MP, NAT, LIPA #### [facility] [address] [place] [address] Dr. Keturah Fisher Globulin (S) [Mass/Vol] 3.3 g/dL Normal [facility] Comment on above: Performed By: #### C NAT MEDEL, LIPA #### [facility] [address] [address] [address] Keturah Fisher Glucose [Mass/Vol] 130 mg/dL Critically high 74-106 [facility] Comment on above: Performed By: #### C LIZY NAT, LIPA #### [facility] [address] [address] [address] Keturah Fisher Potassium [Moles/Vol] 3.6 mmol/L Normal 3.5-5.1 [facility] Comment on above: Performed By: #### C NAT MEDEL, LIPA #### [facility] [address] [place] [address] Dr. Keturah Fisher Protein [Mass/Vol] 7.2 g/dL Normal 6.4-8.2 [facility] Comment on above: Performed By: #### C NAT MEDEL, LIPA #### [facility] [address] [place] [address] Dr. Keturah Fisher Sodium [Moles/Vol] 137 mmol/L Normal 136-145 [facility] Comment on above: Performed By: #### C NAT MEDEL, LIPA #### [facility] [address] [place] [address] Dr. Keturah Fisher Urea nitrogen [Mass/Vol] 9.0 mg/dL Normal 7.0-18.0 [facility] Comment on above: Performed By: #### C NAT MEDEL, LIPA #### [facility] [address] [place] [address] Dr. Keturah Fisher Urea nitrogen/Creatinine [Mass ratio] 10.6 mg/mg Normal [facility] Comment on above: Performed By: #### C NAT MEDEL, LIPA #### [facility] [address] [place] [address] Dr. Keturah Fisher XR ABD FLAT UP_PA [...] TRI HANSON Date: 2021-08-22 14:54 Normal [facility] CBC AUTO DIFFon 08-13-2021 BASO # 0.1 103/ul Normal 0.0-0.1 [facility] Comment on above: Performed By: #### C BC ####[facility] [address] [place], [place] [address]DrGopal Fisher Basophils/100 WBC (Bld) 0.6 % Normal 0.2-2.0 [facility] Comment on above: Performed By: #### C BC ####[facility] [address] [place], [place] [address]DrGopal Fisher EO # 0.1 103/ul Normal 0.0-0.7 [facility] Comment on above: Performed By: #### C BC ####[facility] [address] [place], [place] [address]DrGopal Fisher Eosinophils/100 WBC (Bld) 1.1 % Normal 0.9-7.0 [facility] Comment on above: Performed By: #### C BC ####[facility] [address] [place], [place] [address]DrGopal Fisher Erythrocyte distribution width (RBC) [Ratio] 12.6 % Normal 11.0-15.0 [facility] Comment on above: Performed By: #### C BC ####[facility] [address] [place], [place] [address]DrGopal Fisher Hematocrit (Bld) [Volume fraction] 42.3 % Normal 36.0-48.0 [facility] Comment on above: Performed By: #### C BC ####[facility] [address] [place], [place] [address]DrGoapl Fisher Hemoglobin (Bld) [Mass/Vol] 14.1 g/dL Normal 12.0-16.0 [facility] Comment on above: Performed By: #### C BC ####[facility] [address] [address]Dr. Keturah Fisher IG # 0.03 10e3/ul Normal 0.00-0.03 [facility] Comment on above: Performed By: #### C BC ####[facility] [address] [place], [place] [address]Dr. Keturah Fisher IG % 0.3 % Normal 0.0-0.5 [facility] Comment on above: Performed By: #### C BC ####[facility] [address] [place], [place] [address]DrGopal Fisher LYMPH # 2.4 103/ul Normal 1.2-3.8 [facility] Comment on above: Performed By: #### C BC ####[facility] [address] [place], [place] [address]DrGopal Fisher Lymphocytes/100 WBC (Bld) 22.3 % Normal 20.5-60.0 [facility] Comment on above: Performed By: #### C BC ####[facility] [address] [place], [place] [address]DrGopal Fisher MANUAL DIFF REQ NO Normal [facility] Comment on above: Performed By: #### C BC ####[facility] [address] [place], [place] [address]DrGopal Fisher MCH (RBC) [Entitic mass] 32.5 pg Normal 26.7-34.0 [facility] Comment on above: Performed By: #### C BC ####[facility] [address] [place], [place] [address]DrGopal Fisher MCHC (RBC) [Mass/Vol] 33.3 g/dL Normal 29.9-35.2 [facility] Comment on above: Performed By: #### C BC ####[facility] [address] [place], [place] [address]DrGopal Fisher MCV (RBC) [Entitic vol] 97.5 fL Normal 81.0-99.0 [facility] Comment on above: Performed By: #### C BC ####[facility] [address] [place], [place] [address]DrGopal Keturah Fisher MONO # 1.0 103/ul Critically high 0.3-0.8 [facility] Comment on above: Performed By: #### C BC ####[facility] [address] [place], [place] [address]DrGopal Elisaeli Fisher Monocytes/100 WBC (Bld) 8.7 % Normal 1.7-12.0 [facility] Comment on above: Performed By: #### C BC ####[facility] [address] [place], [place] [address]DrGopal Keturah Fisher NEUT # 7.3 103/ul Critically high 1.4-6.5 [facility] Comment on above: Performed By: #### C BC ####[facility] [address] [place], [place] [address]Dr. Elisaeli Fisher Neutrophils/100 WBC (Bld) 67.0 % Normal 43.0-75.0 [facility] Comment on above: Performed By: #### C BC ####[facility] [address] [place], [place] [address]Dr. Keturah Phillip Platelet mean volume (Bld) [Entitic vol] 9.5 fL Normal 9.5-13.5 [facility] Comment on above: Performed By: #### C BC ####[facility] [address] [place], [place] [address]Dr. Elisaeli Phillip PLT 272 103/ul Normal 150-450 [facility] Comment on above: Performed By: #### C BC ####[facility] [address] [place], [place] [address]DrGopal Fisher RBC 4.34 106/ul Normal 4.20-5.40 [facility] Comment on above: Performed By: #### C BC ####[facility] [address] [place], [place] [address]DrGopal Fisher WBC 10.9 103/ul Normal 4.0-11.0 [facility] Comment on above: Performed By: #### C ####[facility] [address] [place], [place] [address] Fisher CT ABD/PELV W CONon 08-14-19 CT [...] HEBERT MCPHERSON Date: 2021-08-13 17:14 Normal [facility] ER URINE PROFILEon 2 Bilirubin Ql (U) Negative Normal NEGATIVE The [facility] Comment on above: Performed By: #### C BC #### [facility] [address] [place] [address] Dr. Keturah Fisher Clarity (U) CLEAR Normal CLEAR [facility] Comment on above: Performed By: #### C BC #### [facility] [address] [place] [address] Dr. Keturah Fisher Color (U) LT. YELLOW Normal YELLOW [facility] Comment on above: Performed By: #### C BC #### [facility] [address] [place] [address] Dr. Keturah Fisher ERUMATTY A micrscopic examina tion will be performed if indicated. Normal [facility] Comment on above: Performed By: #### C BC #### [facility] [address] [place] [address] Dr. Keturah Fisher Glucose Ql (U) Negative Normal NEGATIVE [facility] Comment on above: Performed By: #### C BC #### [facility] [address] [place] [address] Dr. Keturah Fisher Hemoglobin Ql (U) Negative Normal NEGATIVE [facility] Comment on above: Performed By: #### C BC #### [facility] [address] [place] [address] Dr. Keturah Fisher Ketones Ql (U) Negative Normal NEGATIVE [facility] Comment on above: Performed By: #### C BC #### [facility] [address] [place] [address] Dr. Keturah Fisher LEUKOCYTES Negative Normal NEGATIVE [facility] Comment on above: Performed By: #### C BC #### [facility] [address] [place] [address] Dr. Keturah Fisher Nitrite Ql (U) Negative Normal NEGATIVE [facility] Comment on above: Performed By: #### C BC #### [facility] [address] [place] [address] Dr. Keturah Fisher pH (U) 5.5 [pH] Normal 5-9 [facility] Comment on above: Performed By: #### C BC #### [facility] [address] [place] [address] Dr. Keturah Fisher SPEC GRAVITY 1.010 Normal 1.005-<=1. 025 [facility] Comment on above: Performed By: #### C BC #### [facility] [address] [place] [address] Dr. Keturah Fisher UA PROTEIN Negative Normal NEGATIVE/ TRACE [facility] Comment on above: Performed By: #### C BC #### [facility] [address] [place] [address] Dr. Keturah Fisher UR MICRO IND NOT INDICATED Normal [facility] Comment on above: Performed By: #### C BC #### [facility] [address] [place] [address] Dr. Keturah Fisher Urobilinogen Qn (U) 0.2 {Marizol'U}/dL Normal 0.2 - 1. 0 [facility] Comment on above: Performed By: #### C BC #### [facility] [address] [place] [address] Dr. Keturah Fisher LIPASEon 08-13-2021 Lipase [Catalytic activity/Vol] 217.0 U/L Normal 73.0-393.0 [facility] Comment on above: Performed By: #### C BC #### [facility] [address] [place] [address] Dr. Keturah Fisher PROF 14(COMP METB)on 022 Albumin [Mass/Vol] 3.9 g/dL Normal 3.4-5.0 [facility] Comment on above: Performed By: #### C BC #### [facility] [address] [place] [address] Dr. Keturah Fisher Albumin/Globulin [Mass ratio] 1.1 {ratio} Normal [facility] Comment on above: Performed By: #### C BC #### [facility] [address] [place] [address] Dr. Keturah Fisher ALP [Catalytic activity/Vol] 140 U/L Critically high 46-116 [facility] Comment on above: Performed By: #### C BC #### [facility] [address] [place] [address] Dr. Keturah Fisher ALT [Catalytic activity/Vol] 24 U/L Normal 14-59 [facility] Comment on above: Performed By: #### C BC #### [facility] [address] [place] [address] Dr. Keturah Fisher Anion gap [Moles/Vol] 11.7 mmol/L Normal [facility] Comment on above: Performed By: #### C BC #### [facility] [address] [place] [address] Dr. Keturah Fisher AST [Catalytic activity/Vol] 19 U/L Normal 15-37 [facility] Comment on above: Performed By: #### C BC #### [facility] [address] [place] [address] Dr. Keturah Fisher Bilirubin [Mass/Vol] 0.2 mg/dL Normal 0.2-1.0 [facility] Comment on above: Performed By: #### C BC #### [facility] [address] [place] [address] Dr. Keturah Fisher Calcium [Mass/Vol] 9.9 mg/dL Normal 8.5-10.1 [facility] Comment on above: Performed By: #### C BC #### [facility] [address] [place] [address] Dr. Keturah Fisher Chloride [Moles/Vol] 105 mmol/L Normal 98-107 [facility] Comment on above: Performed By: #### C BC #### [facility] [address] [place] [address] Dr. Keturah Fisher CO2 [Moles/Vol] 29.1 mmol/L Normal 21.0-32.0 [facility] Comment on above: Performed By: #### C BC #### [facility] [address] [place] [address] Dr. Keturah Fisher Creatinine [Mass/Vol] 0.81 mg/dL Normal 0.55-1.02 [facility] Comment on above: Performed By: #### C BC #### [facility] [address] [place] [address] Dr. Keturah Fisher EGFR-AF MALTESE >60 Normal >=60 [facility] Comment on above: Performed By: #### C BC #### [facility] [address] [place] [address] Dr. Keturah Fisher EGFR-NON AF MALTESE >60 Normal >=60 [facility] Comment on above: Performed By: #### C BC #### [facility] [address] [place] [address] Dr. Keturah Fisher Globulin (S) [Mass/Vol] 3.4 g/dL Normal [facility] Comment on above: Performed By: #### C BC #### [facility] [address] [place] [address] Dr. Keturah Fisher Glucose [Mass/Vol] 87 mg/dL Normal 74-106 [facility] Comment on above: Performed By: #### C BC #### [facility] [address] [place] [address] Dr. Keturah Fisher Potassium [Moles/Vol] 3.8 mmol/L Normal 3.5-5.1 [facility] Comment on above: Performed By: #### C BC #### [facility] [address] [place] [address] Dr. Keturah Fisher Protein [Mass/Vol] 7.3 g/dL Normal 6.4-8.2 [facility] Comment on above: Performed By: #### C BC #### [facility] [address] [place] [address] Dr. Keturah Fisher Sodium [Moles/Vol] 142 mmol/L Normal 136-145 [facility] Comment on above: Performed By: #### C BC #### [facility] [address] [place], [place] [address] Dr. Keturah Fisher Urea nitrogen [Mass/Vol] 11.0 mg/dL Normal 7.0-18.0 [facility] Comment on above: Performed By: #### C BC #### [facility] [address] [place], [place] [address] Dr. Keturah Fisher Urea nitrogen/Creatinine [Mass ratio] 13.6 mg/mg Normal [facility] Comment on above: Performed By: #### C BC #### [facility] [address] [place], [place] [address] Dr. Keturah Fisher Albumin [Mass/volume] in Ser um or PlasmaOrdered By: Keaton Barnard on 08-11-2021 Albumin [Mass/Vol] 3.4 g/dL 3.2-5.5 [facility] Basophils Auto (Bld) [#/Vol] Ordered By: Keaton Barnard on 08-11-2021 Basophils (Bld) [#/Vol] 0.1 10*3/uL 0.0-0.2 [facility] Basophils/100 WBC Auto (Bld) Ordered By: Keaton Barnard on 08-11-2021 Basophils/100 WBC (Bld) 0.9 % . [facility] Bilirubin Test strip Ql (U)O rdered By: Keaton Barnard on 08-11-2021 Bilirubin Ql (U) Negative Negative [facility] Blood hemoglobin measurement (mass/volume)Ordered By: Keaton Barnard on 08-11-2021 Hemoglobin (Bld) [Mass/Vol] 14.1 g/dL 11.8-15.4 [facility] Blood leukocytes automated c ount (number/volume)Ordered By: Keaton Barnard on 08-11-2021 WBC (Bld) [#/Vol] 9.7 10*3/uL 4.5-11.0 [facility] Color Auto (U)Ordered By: Luis Barnard on 08-11-2021 Color (U) Yellow Yellow [facility] Creatinine and Glomerular fi ltration rate.predicted panel (S/P/Bld)Ordered By: Keaton Barnard on 08-11-2021 Creatinine [Mass/Vol] 0.95 mg/dL 0.44-1.03 [facility] Direct bilirubin measurement Ordered By: Keaton Barnard on 08-11-2021 Bilirubin.direct [Mass/Vol] mg/dL 0.0-0.4 [facility] Eosinophils Auto (Bld) [#/Vo l]Ordered By: Keaton Barnard on 08-11-2021 Eosinophils (Bld) [#/Vol] 0.1 10*3/uL 0.0-0.45 [facility] Eosinophils/100 WBC Auto (Bl d)Ordered By: Keaton Barnard on 08-11-2021 Eosinophils/100 WBC (Bld) 1.3 % . [facility] Erythrocyte distribution wid th Auto (RBC) [Ratio]Ordered By: Keaton Barnard on 08-11-2021 Erythrocyte distribution width (RBC) [Ratio] 13.2 % 11.9-15.3 [facility] Estimated glomerular filtrat ion rate (GFR) non- AmericanOrdered By: Keaton Barnard on 08-11-2021 GFR/1.73 sq M.predicted among non-blacks MDRD (S/P/Bld) [Vol rate/Area] > 60 mL/Min [facility] Globulin Calc (S) [Mass/Vol] Ordered By: Keaton Barnard on 08-11-2021 Globulin (S) [Mass/Vol] 2.6 g/dL [facility] Hematocrit Auto (Bld) [Volum e fraction]Ordered By: Keaton Barnard on 08-11-2021 Hematocrit (Bld) [Volume fraction] 42.1 % 34.0-46.4 [facility] Ketones Auto test strip (U) [Mass/Vol]Ordered By: Keaton Barnard on 08-11-2021 Ketones (U) [Mass/Vol] Negative Negative [facility] and C hemistry - challengeOrdered By: Keaton Barnard on 08-11-2021 Lipase [Catalytic activity/Vol] 89.0 U/L 22-51 [facility] - CoagulationOrde red By: Keaton Barnard on 08-11-2021 PT Coag (PPP) [Time] 12.5 s 9.0-12.9 [facility] - Hematology and Cell countsOrdered By: Keaton Barnard on 08-11-2021 Nucleated RBC/100 WBC (Bld) [Ratio] 0.1 % 0-0.5 [facility] Lymphocytes Auto (Bld) [#/Vo l]Ordered By: Keaton Barnard on 08-11-2021 Lymphocytes (Bld) [#/Vol] 2.5 10*3/uL 1.00-4.8 [facility] Lymphocytes/100 WBC Auto (Bl d)Ordered By: Keaton Barnard on 08-11-2021 Lymphocytes/100 WBC (Bld) 25.8 % . [facility] MCH Auto (RBC) [Entitic mass ]Ordered By: Keaton Barnard on 08-11-2021 MCH (RBC) [Entitic mass] 32.4 pg 24.7-34.3 [facility] MCHC Auto (RBC) [Mass/Vol]Or dered By: Keaton Barnard on 08-11-2021 MCHC (RBC) [Mass/Vol] 33.4 g/dL 32.0-35.0 [facility] MCV Auto (RBC) [Entitic vol] Ordered By: Keaton Barnard on 08-11-2021 MCV (RBC) [Entitic vol] 96.8 fL 80-100 [facility] Monocytes Auto (Bld) [#/Vol] Ordered By: Keaton Barnard on 08-11-2021 Monocytes (Bld) [#/Vol] 0.8 10*3/uL 0.0-0.8 [facility] Monocytes/100 WBC Auto (Bld) Ordered By: Keaton Barnard on 08-11-2021 Monocytes/100 WBC (Bld) 8.7 % . [facility] Neutrophils Auto (Bld) [#/Vo l]Ordered By: Keaton Barnard on 08-11-2021 Neutrophils (Bld) [#/Vol] 6.1 10*3/uL 1.8-7.7 [facility] Neutrophils/100 WBC Auto (Bl d)Ordered By: Keaton Barnard on 08-11-2021 Neutrophils/100 WBC (Bld) 63.3 % . [facility] Nitrite Test strip Ql (U)Ord ered By: Keaton Barnard on 08-11-2021 Nitrite Ql (U) Negative Negative [facility] No Panel InformationOrdered By: Keaton Barnard on 08-11-2021 Estimated GFR () > 60 mL/Min [facility] Comment on above: GFR estimated refere nce range: According to KDOQI guidelines, <60 ml/min/1.73m2 is sufficient to diagnose a patient with chronic kidney disease. Pharmacy Creatinine Clearance (Chem 62.33 [facility] Platelet mean volume Auto (B ld) [Entitic vol]Ordered By: Keaton Barnard on 08-11-2021 Platelet mean volume (Bld) [Entitic vol] 8.0 fL 6.3-10.7 [facility] Platelet poor plasma interna tional normalized ratio (INR) by coagulation assay (relatOrdered By: Keaton Barnard on 08-11-2021 INR Coag (PPP) [Relative time] 1.1 {INR} [facility] Comment on above: INR Therapeutic Rang [...] 08-11-2021 Platelets (Bld) [#/Vol] 252 10*3/uL 150-450 [facility] Protein Auto test strip (U) [Mass/Vol]Ordered By: Keaton Barnard on 08-11-2021 Protein (U) [Mass/Vol] Negative Negative [facility] Protein [Mass/volume] in Ser um or PlasmaOrdered By: Keaton Barnard on 08-11-2021 Protein [Mass/Vol] 6.0 g/dL 6.1-7.9 [facility] RBC Auto (Bld) [#/Vol]Ordere d By: Keaton Barnard on 08-11-2021 RBC (Bld) [#/Vol] 4.35 10*6/uL 3.60-5.00 [facility] Serum or plasma alanine hughes otransferase measurement without P-5'-P (enzymatic activiOrdered By: Keaton Barnard on 08-11-2021 ALT No additional P-5'-P [Catalytic activity/Vol] 12 U/L 10-60 [facility] Serum or plasma albumin/glob ulin mass ratioOrdered By: Keaton Barnard on 08-11-2021 Albumin/Globulin [Mass ratio] 1.3 {ratio} [facility] Serum or plasma alkaline jaqueline sphatase measurement (enzymatic activity/volume)Ordered By: Keaton Barnard on 08-11-2021 ALP [Catalytic activity/Vol] 98 U/L 32-92 [facility] Serum or plasma aspartate am inotransferase measurement (enzymatic activity/volume)Ordered By: Keaton Barnard on 08-11-2021 AST [Catalytic activity/Vol] 17 U/L 10-42 [facility] Serum or plasma calcium priscilla urement (mass/volume)Ordered By: Keaton Barnard on 08-11-2021 Calcium [Mass/Vol] 9.3 mg/dL 8.2-10.2 [facility] Serum or plasma chloride daron surement (moles/volume)Ordered By: Keaton Barnard on 08-11-2021 Chloride [Moles/Vol] 104 mmol/L 95-114 [facility] Serum or plasma glucose priscilla urement (mass/volume)Ordered By: Keaton Barnard on 08-11-2021 Glucose [Mass/Vol] 95 mg/dL 70-100 [facility] Comment on above: ADA recommended refe rence range Random Glucose Reference Range is dependent on time and content of last meal. Glucose of more than 200 mg/dL in a nonstressed, ambulatory subject supports the diagnosis of Diabetes Mellitus. Serum or plasma non-glucuron idated bilirubin measurement (mass/volume)Ordered By: Keaton Barnard on 08-11-2021 Bilirubin.indirect [Mass/Vol] TNP [facility] Comment on above: Test not performed Serum or plasma potassium me asurement (moles/volume)Ordered By: Keaton Barnard on 08-11-2021 Potassium [Moles/Vol] 3.8 mmol/L 3.5-5.1 [facility] Serum or plasma sodium measu rement (moles/volume)Ordered By: Keaton Barnard on 08-11-2021 Sodium [Moles/Vol] 138 mmol/L 136-146 [facility] Serum or plasma total biliru bin measurement (mass/volume)Ordered By: Keaton Barnard on 08-11-2021 Bilirubin [Mass/Vol] 0.3 mg/dL 0.3-1.2 [facility] Serum or plasma total carbon dioxide measurement (moles/volume)Ordered By: Keaton Barnard on 08-11-2021 CO2 [Moles/Vol] 24.8 mmol/L 22.0-30.0 [facility] Serum or plasma urea nitroge n measurement (mass/volume)Ordered By: Keaton Barnard on 08-11-2021 Urea nitrogen [Mass/Vol] 10 mg/dL 9-23 [facility] Specific gravity Auto test s trip (U) [Rel density]Ordered By: Keaton Barnard on 08-11-2021 Specific gravity (U) [Rel density] 1.028 1.001-1.03 0 [facility] Troponin I.cardiac [Mass/vol ume] in Serum or Plasma by High sensitivity methodOrdered By: Keaton Barnard on 08-11-2021 Troponin I.cardiac High sensitivity method [Mass/Vol] 3 pg/mL 0-15 [facility] Urine clarity by refractomet ry automatedOrdered By: Keaton Barnard on 08-11-2021 Clarity Refractometry automated (U) Clear Clear [facility] Urine glucose measurement by automated test strip (mass/volume)Ordered By: Keaton Barnard on 08-11-2021 Glucose Auto test strip (U) [Mass/Vol] Normal mg/dL Normal [facility] Urine hemoglobin detection b y automated test stripOrdered By: Keaton Barnard on 08-11-2021 Hemoglobin Auto test strip Ql (U) Negative Negative [facility] Urine leukocyte esterase det ection by automated test stripOrdered By: Keaton Barnard on 08-11-2021 Leukocyte esterase Auto test strip Ql (U) Negative Negative [facility] Urobilinogen Auto test strip (U) [Mass/Vol]Ordered By: Keaton Barnard on 08-11-2021 Urobilinogen (U) [Mass/Vol] Normal mg/dL Normal [facility] pH Auto test strip (U)Ordere d By: Keaton Barnard on 08-11-2021 pH (U) 5.0 [pH] 5.0-9.0 [facility] AMYLASEon 07-31-2021 Amylase [Catalytic activity/Vol] 158 U/L Critically high 25-115 [facility] Comment on above: Performed By: #### L IPA, CMP, CRP, NAT #### [facility] [address] [place], [place] [address] Dr. Keturah Fisher CBC AUTO DIFFon 07-31-2021 BASO # 0.1 103/ul Normal 0.0-0.1 [facility] Comment on above: Performed By: #### C BC ####[facility] [address] [place] [address]Dr. Keturah Fisher Basophils/100 WBC (Bld) 0.7 % Normal 0.2-2.0 [facility] Comment on above: Performed By: #### C BC ####[facility] [address] [place] [address]Dr. Keturah Fisher EO # 0.1 103/ul Normal 0.0-0.7 [facility] Comment on above: Performed By: #### C BC ####[facility] [address] [place] [address]Dr. Keturah Fisher Eosinophils/100 WBC (Bld) 0.9 % Normal 0.9-7.0 [facility] Comment on above: Performed By: #### C BC ####[facility] [address] [place] [address]Dr. Keturah Fisher Erythrocyte distribution width (RBC) [Ratio] 12.7 % Normal 11.0-15.0 [facility] Comment on above: Performed By: #### C BC ####[facility] [address] [place] [id number]. Keturah Fisher Hematocrit (Bld) [Volume fraction] 43.2 % Normal 36.0-48.0 [facility] Comment on above: Performed By: #### C BC ####[facility] [address] [place] [address]DrGopal Fisher Hemoglobin (Bld) [Mass/Vol] 14.5 g/dL Normal 12.0-16.0 [facility] Comment on above: Performed By: #### C BC ####[facility] [address] [place] [address]DrGopal Fisher IG # 0.04 10e3/ul Critically high 0.00-0.03 [facility] Comment on above: Performed By: #### C BC ####[facility] [address] [place] [address]DrGopal Fisher IG % 0.4 % Normal 0.0-0.5 [facility] Comment on above: Performed By: #### C BC ####[facility] [address] [place] [address]DrGopal Fisher LYMPH # 2.8 103/ul Normal 1.2-3.8 [facility] Comment on above: Performed By: #### C BC ####[facility] [address] [place] [address]DrGopal Fisher Lymphocytes/100 WBC (Bld) 24.9 % Normal 20.5-60.0 [facility] Comment on above: Performed By: #### C BC ####[facility] [address] [place] [address]DrGopal Fisher MANUAL DIFF REQ NO Normal [facility] Comment on above: Performed By: #### C BC ####[facility] [address] [place] [address]DrGopal Fisher MCH (RBC) [Entitic mass] 32.7 pg Normal 26.7-34.0 [facility] Comment on above: Performed By: #### C BC ####[facility] [address] [place] [id number] Fisher MCHC (RBC) [Mass/Vol] 33.6 g/dL Normal 29.9-35.2 [facility] Comment on above: Performed By: #### C BC ####[facility] [address] [place] [id number] Fisher MCV (RBC) [Entitic vol] 97.5 fL Normal 81.0-99.0 [facility] Comment on above: Performed By: #### C BC ####[facility] [address] [place] [id number]. Keturah Fisher MONO # 0.9 103/ul Critically high 0.3-0.8 [facility] Comment on above: Performed By: #### C BC ####[facility] [address] [place] [address]Dr. Keturah Phillip Monocytes/100 WBC (Bld) 8.1 % Normal 1.7-12.0 [facility] Comment on above: Performed By: #### C BC ####[facility] [address] [place] [address]Dr. Keturah Fisher NEUT # 7.3 103/ul Critically high 1.4-6.5 [facility] Comment on above: Performed By: #### C BC ####[facility] [address] [place] [address]Dr. Elisaeli Fisher Neutrophils/100 WBC (Bld) 65.0 % Normal 43.0-75.0 [facility] Comment on above: Performed By: #### C BC ####[facility] [address] [place], [place] [address]Dr. Keturah Phillip Platelet mean volume (Bld) [Entitic vol] 10.0 fL Normal 9.5-13.5 [facility] Comment on above: Performed By: #### C BC ####[facility] [address] [place] [id number]. Keturah Phillip PLT 245 103/ul Normal 150-450 [facility] Comment on above: Performed By: #### C BC ####[facility] [address] [place] [id number]. Keturah Fisher RBC 4.43 106/ul Normal 4.20-5.40 [facility] Comment on above: Performed By: #### C BC ####[facility] [address] [place] [id number]. Keturah Fisher WBC 11.2 103/ul Critically high 4.0-11.0 [facility] Comment on above: Performed By: #### C BC ####[facility] [address] [place] [address]Dr. Keturah Fisher LIPASEon 07-31-2021 Lipase [Catalytic activity/Vol] 439.0 U/L Critically high 73.0-393.0 [facility] Comment on above: Performed By: #### L IPA, CMP, CRP, NAT #### [facility] [address] [place] [address] [address] Keturah Fisher PROF 14(COMP METB)on 022 Albumin [Mass/Vol] 3.6 g/dL Normal 3.4-5.0 [facility] Comment on above: Performed By: #### L IPA, CMP, CRP, NAT #### [facility] [address] [place] [address] [address] Keturah Fisher Albumin/Globulin [Mass ratio] 1.1 {ratio} Normal [facility] Comment on above: Performed By: #### L IPA, CMP, CRP, NAT #### [facility] [address] [place] [address] [address] Keturah Fisher ALP [Catalytic activity/Vol] 119 U/L Critically high 46-116 [facility] Comment on above: Performed By: #### L IPA, CMP, CRP, NAT #### [facility] [address] [place] [address] [address] Keturah Fisher ALT [Catalytic activity/Vol] 20 U/L Normal 14-59 [facility] Comment on above: Performed By: #### L IPA, CMP, CRP, NAT #### [facility] [address] [place] [address] [address] Keturah Fisher Anion gap [Moles/Vol] 13.4 mmol/L Normal [facility] Comment on above: Performed By: #### L IPA, CMP, CRP, NAT #### [facility] [address] [place] [address] [address] Keturah Fisher AST [Catalytic activity/Vol] 16 U/L Normal 15-37 [facility] Comment on above: Performed By: #### L IPA, CMP, CRP, NAT #### [facility] [address] [place] [address] Dr. Keturah Fisher Bilirubin [Mass/Vol] 0.1 mg/dL Critically low 0.2-1.0 [facility] Comment on above: Performed By: #### L IPA, CMP, CRP, NAT #### [facility] [address] [place] [address] Dr. Keturah Fisher Calcium [Mass/Vol] 8.9 mg/dL Normal 8.5-10.1 [facility] Comment on above: Performed By: #### L IPA, CMP, CRP, NAT #### [facility] [address] [place] [address] Dr. Keturah Fisher Chloride [Moles/Vol] 106 mmol/L Normal 98-107 [facility] Comment on above: Performed By: #### L IPA, CMP, CRP, NAT #### [facility] [address] [place] [address] Dr. Keturah Fisher CO2 [Moles/Vol] 25.4 mmol/L Normal 21.0-32.0 [facility] Comment on above: Performed By: #### L IPA, CMP, CRP, NAT #### [facility] [address] [place] [address] Dr. Keturah Fisher Creatinine [Mass/Vol] 0.73 mg/dL Normal 0.55-1.02 [facility] Comment on above: Performed By: #### L IPA, CMP, CRP, NAT #### [facility] [address] [place] [address] Dr. Keturah Fisher EGFR-AF MALTESE >60 Normal >=60 [facility] Comment on above: Performed By: #### L IPA, CMP, CRP, NAT #### [facility] [address] [place] [address] Dr. Keturah Fisher EGFR-NON AF MALTESE >60 Normal >=60 [facility] Comment on above: Performed By: #### L IPA, CMP, CRP, NAT #### [facility] [address] [place] [address] Dr. Keturah Fisher Globulin (S) [Mass/Vol] 3.2 g/dL Normal [facility] Comment on above: Performed By: #### L IPA, CMP, CRP, NAT #### [facility] [address] [place] [address] [address] Keturah Fisher Glucose [Mass/Vol] 105 mg/dL Normal 74-106 [facility] Comment on above: Performed By: #### L IPA, CMP, CRP, NAT #### [facility] [address] [place] [address] [address] Keturah Fisher Potassium [Moles/Vol] 3.8 mmol/L Normal 3.5-5.1 [facility] Comment on above: Performed By: #### L IPA, CMP, CRP, NAT #### [facility] [address] [place] [address] [address] Keturah Fisher Protein [Mass/Vol] 6.8 g/dL Normal 6.4-8.2 [facility] Comment on above: Performed By: #### L IPA, CMP, CRP, NAT #### [facility] [address] [place] [address] [address] Keturah Fisher Sodium [Moles/Vol] 141 mmol/L Normal 136-145 [facility] Comment on above: Performed By: #### L IPA, CMP, CRP, NAT #### [facility] [address] [place] [address] Dr. Keturah Fisher Urea nitrogen [Mass/Vol] 12.0 mg/dL Normal 7.0-18.0 [facility] Comment on above: Performed By: #### L IPA, CMP, CRP, NAT #### [facility] [address] [place] [address] Dr. Keturah Fisher Urea nitrogen/Creatinine [Mass ratio] 16.4 mg/mg Normal [facility] Comment on above: Performed By: #### L IPA, CMP, CRP, NAT #### [facility] [address] [place] [address] Dr. Keturah Fisher TROPONIN, HIGH SENSITIVITYon 07-31-2021 HSTROP 4.2 pg/mL Normal 4.0-51.3 [facility] Comment on above: Result Comment: CUT- OFF POINTS HAVE BEEN ESTABLISHED BASED ON THE FOURTH UNIVERSAL DEFINITIONS OF MYOCARDIAL INFARCTION. THE UPPER REFERENCE LIMIT (URL) OF TROPONIN, DEFINED THE 99TH PERCENTILE OF cTnI DISTRIBUTION IN A REFERENCE POPULATION, HAS BEEN CONFIRMED THE DECISION THRESHOLD FOR OK DIAGNOSIS. Performed By: #### L IPA, CMP, CRP, NAT #### [facility] [address] [place], [place] [address] Dr. Keturah Fisher AMYLASEon 07-19-2021 Amylase [Catalytic activity/Vol] 198 U/L Critically high 25-115 [facility] Comment on above: Performed By: #### A MY, LIPA, CMP ####[facility] [address] [place] [address]Dr. Keturah Fisher CBC AUTO DIFFon 07-19-2021 BASO # 0.1 103/ul Normal 0.0-0.1 [facility] Comment on above: Performed By: #### C BC ####[facility] [address] [place] [address]Dr. Keturah Fisher Basophils/100 WBC (Bld) 0.7 % Normal 0.2-2.0 [facility] Comment on above: Performed By: #### C BC ####[facility] [address] [place] [address]Dr. Keturah Fisher EO # 0.1 103/ul Normal 0.0-0.7 [facility] Comment on above: Performed By: #### C BC ####[facility] [address] [place] [address]DrGopal Fisher Eosinophils/100 WBC (Bld) 1.0 % Normal 0.9-7.0 [facility] Comment on above: Performed By: #### C BC ####[facility] [address] [place] [address]DrGopal Fisher Erythrocyte distribution width (RBC) [Ratio] 12.5 % Normal 11.0-15.0 [facility] Comment on above: Performed By: #### C BC ####[facility] [address] [place] [address]DrGopal Fisher Hematocrit (Bld) [Volume fraction] 42.4 % Normal 36.0-48.0 [facility] Comment on above: Performed By: #### C BC ####[facility] [address]kt[address] [place] [address]Dr. Keturah Phillip Hemoglobin (Bld) [Mass/Vol] 14.2 g/dL Normal 12.0-16.0 [facility] Comment on above: Performed By: #### C BC ####[facility] [address] [place] [address]Dr. Elisaeli Phillip IG # 0.03 10e3/ul Normal 0.00-0.03 [facility] Comment on above: Performed By: #### C BC ####[facility] [address] [place], [place] [address]Dr. Keturah Fisher IG % 0.3 % Normal 0.0-0.5 [facility] Comment on above: Performed By: #### C BC ####[facility] [address] [place], [place] [address]Dr. Keturah Fisher LYMPH # 3.0 103/ul Normal 1.2-3.8 [facility] Comment on above: Performed By: #### C BC ####[facility] [address] [place], [place] [address]DrGopal Fisher Lymphocytes/100 WBC (Bld) 29.5 % Normal 20.5-60.0 [facility] Comment on above: Performed By: #### C BC ####[facility] [address] [place] [address]Dr. Keturah Fisher MANUAL DIFF REQ NO Normal [facility] Comment on above: Performed By: #### C BC ####[facility] [address] [place] [id number] Fisher MCH (RBC) [Entitic mass] 32.8 pg Normal 26.7-34.0 [facility] Comment on above: Performed By: #### C BC ####[facility] [address] [place] [address]Dr. Keturah Fisher MCHC (RBC) [Mass/Vol] 33.5 g/dL Normal 29.9-35.2 [facility] Comment on above: Performed By: #### C BC ####[facility] [address]um[address] [place] [id number] Keturah Phillip MCV (RBC) [Entitic vol] 97.9 fL Normal 81.0-99.0 [facility] Comment on above: Performed By: #### C BC ####[facility] [address] [place] [id number] Fisher MONO # 1.0 103/ul Critically high 0.3-0.8 [facility] Comment on above: Performed By: #### C BC ####[facility] [address] [place] [address]DrGopal Fisher Monocytes/100 WBC (Bld) 9.3 % Normal 1.7-12.0 [facility] Comment on above: Performed By: #### C BC ####[facility] [address] [place], [place] [address]Dr. Keturah Fisher NEUT # 6.1 103/ul Normal 1.4-6.5 [facility] Comment on above: Performed By: #### C BC ####[facility] [address] [place], [place] [address]Dr. Keturah Fisher Neutrophils/100 WBC (Bld) 59.2 % Normal 43.0-75.0 [facility] Comment on above: Performed By: #### C BC ####[facility] [address] [place] [id number] Fisher Platelet mean volume (Bld) [Entitic vol] 9.8 fL Normal 9.5-13.5 [facility] Comment on above: Performed By: #### C BC ####[facility] [address] [place] [address]Dr. Keturah Fisher PLT 249 103/ul Normal 150-450 [facility] Comment on above: Performed By: #### C BC ####[facility] [address]tr[address] [place] [id number] Fisher RBC 4.33 106/ul Normal 4.20-5.40 [facility] Comment on above: Performed By: #### C BC ####[facility] [address] [place] [address]Dr. Keturah Fisher WBC 10.2 103/ul Normal 4.0-11.0 [facility] Comment on above: Performed By: #### C BC ####[facility] [address] [place] [address]Dr. Keturah Fisher LIPASEon 07-19-2021 Lipase [Catalytic activity/Vol] 554.0 U/L Critically high 73.0-393.0 [facility] Comment on above: Performed By: #### A AMANDEEP LIPA, CMP ####[facility] [address] [place] [address]Dr. Keturah Fisher PROF 14(COMP METB)on 022 Albumin [Mass/Vol] 4.0 g/dL Normal 3.4-5.0 [facility] Comment on above: Performed By: #### A AMANDEEP LIPA, CMP ####[facility] [address]wt[address]xhm[address] [place] [address]Dr. Keturah Fisher Albumin/Globulin [Mass ratio] 1.1 {ratio} Normal [facility] Comment on above: Performed By: #### A AMANDEEP LIPA, CMP ####[facility] [address] [place] [address]Dr. Keturah Fisher ALP [Catalytic activity/Vol] 141 U/L Critically high 46-116 [facility] Comment on above: Performed By: #### A AMANDEEP LIPA, CMP ####[facility] [address]ds[address] [place] [address]Dr. Keturah Fisher ALT [Catalytic activity/Vol] 21 U/L Normal 14-59 [facility] Comment on above: Performed By: #### A AMANDEEP LIPA, CMP ####[facility] [address]ms[address] [place] [address]Dr. Keturah Fisher Anion gap [Moles/Vol] 10.3 mmol/L Normal [facility] Comment on above: Performed By: #### A AMANDEEP LIPA, CMP ####[facility] [address]qu[address]mu[address] [place] [address]Dr. Keturah Fisher AST [Catalytic activity/Vol] 22 U/L Normal 15-37 [facility] Comment on above: Performed By: #### A MY, LIPA, CMP ####[facility] V[address]wjxau[address] [place] [address]Dr. Keturah Fisher Bilirubin [Mass/Vol] 0.3 mg/dL Normal 0.2-1.0 [facility] Comment on above: Performed By: #### A MY, LIPA, CMP ####[facility] [address] [place], [place] [address]Dr. Keturah Fisher Calcium [Mass/Vol] 9.9 mg/dL Normal 8.5-10.1 [facility] Comment on above: Performed By: #### A MY, LIPA, CMP ####[facility] [address] [place], [place] [address]Dr. Keturah Fisher Chloride [Moles/Vol] 103 mmol/L Normal 98-107 [facility] Comment on above: Performed By: #### A MY, LIPA, CMP ####[facility] [address] [place], [place] [address]Dr. Keturah Fisher CO2 [Moles/Vol] 27.6 mmol/L Normal 21.0-32.0 [facility] Comment on above: Performed By: #### A MY, LIPA, CMP ####[facility] [address] [place], [place] [address]Dr. Keturah Fisher Creatinine [Mass/Vol] 0.93 mg/dL Normal 0.55-1.02 [facility] Comment on above: Performed By: #### A MY, LIPA, CMP ####[facility] [address] [place] [id number]. Keturah Fisher EGFR-AF MALTESE >60 Normal >=60 [facility] Comment on above: Performed By: #### A MY, LIPA, CMP ####[facility] [id number] [place] [address]Dr. Keturah Fisher EGFR-NON AF MALTESE >60 Normal >=60 [facility] Comment on above: Performed By: #### A MY LIPA, CMP ####[facility] [id number] [address]Dr. Keturah Fisher Globulin (S) [Mass/Vol] 3.5 g/dL Normal [facility] Comment on above: Performed By: #### A MY LIPA, CMP ####[facility] [id number] [address]Dr. Keturah Fisher Glucose [Mass/Vol] 99 mg/dL Normal 74-106 [facility] Comment on above: Performed By: #### A MY LIPA, CMP ####[facility] [address] [place], [place] [address]Dr. Keturah Fisher Potassium [Moles/Vol] 3.9 mmol/L Normal 3.5-5.1 [facility] Comment on above: Performed By: #### A AMANDEEP LIPA, CMP ####[facility] [id number] [place], [place] [address]Dr. Keturah Fisher Protein [Mass/Vol] 7.5 g/dL Normal 6.4-8.2 [facility] Comment on above: Performed By: #### A AMANDEEP LIPA, CMP ####[facility] [address] [place], [place] [address]Dr. Keturah Fisher Sodium [Moles/Vol] 137 mmol/L Normal 136-145 [facility] Comment on above: Performed By: #### A MY LIPA, CMP ####[facility] [address] [place], [place] [address]Dr. Keturah Fisher Urea nitrogen [Mass/Vol] 9.0 mg/dL Normal 7.0-18.0 [facility] Comment on above: Performed By: #### A MY LIPA, CMP ####[facility] [address] [place], [place] [address]Dr. Keturah Fisher Urea nitrogen/Creatinine [Mass ratio] 9.7 mg/mg Normal [facility] Comment on above: Performed By: #### A MY LIPA, CMP ####[facility] [address] [place], [place] [address]Hz. Keturah Fisher XR ABD FLAT UP_PA Jorje [...] LYNNE PERDOMO Date: 2021-07-19 16:57 Normal [facility] COVID Quick Testingon 2021 Result Positive [employer] Other Amylaseon 03-26-2020 Amylase [Catalytic activity/Vol] 185 U/L High 28 - 100 U/L [place] CBC Auto Differentialon 03-09 Basophils (Bld) [#/Vol] 0.06 10*3/uL [place] Basophils/100 WBC (Bld) 1 % 0 - 2 % [place] Differential Type NOT REPORTED [place] Eosinophils (Bld) [#/Vol] 0.12 10*3/uL [place] Eosinophils/100 WBC (Bld) 1 % 1 - 4 % [place] Erythrocyte distribution width (RBC) [Ratio] 12.4 % 11.8 - 14.4 % [place] Hematocrit (Bld) [Volume fraction] 40.6 % 36.3 - 47.1 % [place] Hemoglobin (Bld) [Mass/Vol] 13.7 g/dL 11.9 - 15.1 g/dL [place] Immature granulocytes (Bld) [#/Vol] 0 % 0 [place] Immature granulocytes (Bld) [#/Vol] 10*3/uL [place] Lymphocytes (Bld) [#/Vol] 2.62 10*3/uL [place] Lymphocytes/100 WBC (Bld) 27 % 24 - 43 % [place] MCH (RBC) [Entitic mass] 33.4 pg 25.2 - 33.5 pg [place] MCHC (RBC) [Mass/Vol] 33.7 g/dL 28.4 - 34.8 g/dL [place] MCV (RBC) [Entitic vol] 99.0 fL 82.6 - 102.9 fL [place] Monocytes (Bld) [#/Vol] 0.78 10*3/uL [place] Monocytes/100 WBC (Bld) 8 % 3 - 12 % [place] Platelet mean volume (Bld) [Entitic vol] 9.4 fL 8.1 - 13.5 fL [place] Platelets (Bld) [#/Vol] 235 10*3/uL [place] Platelets (Bld) [#/Vol] NOT REPORTED [place] RBC (Bld) [#/Vol] 4.10 10*6/uL 3.95 - 5.11 m/uL [place] RBC morphology finding Nom (Bld) NOT REPORTED [place] Segmented neutrophils/100 WBC (Bld) 63 % 36 - 65 % [place] Segs Absolute 5.96 [place] WBC (Bld) [#/Vol] 9.6 10*3/uL [place] WBC (Bld) [#/Vol] 0.0 10*3/uL 0.0 per 100 WBC [place] WBC Morphology NOT REPORTED [place] Comprehensive Metabolic Pane l w/ Reflex to MGon 03-26-2020 Albumin [Mass/Vol] 4.3 g/dL 3.5 - 5.2 g/dL [place] Albumin/Globulin [Mass ratio] 1.7 {ratio} [place] ALP [Catalytic activity/Vol] 117 U/L High 35 - 104 U/L [place] ALT [Catalytic activity/Vol] 11 U/L 5 - 33 U/L [place] Anion gap [Moles/Vol] 9 mmol/L 9 - 17 mmol/L [place] AST [Catalytic activity/Vol] 18 U/L <32 [place] Bilirubin Ql (U) 0.15 mg/dL Low 0.3 - 1.2 mg/dL [place] Bun/Cre Ratio 12 [place] Calcium [Mass/Vol] 9.7 mg/dL 8.6 - 10. 4 mg/dL [place] Chloride [Moles/Vol] 102 mmol/L 98 - 10 7 mmol/L [place] CO2 [Moles/Vol] 25 mmol/L 20 - 31 mmol/L [place] Creatinine [Mass/Vol] 0.74 mg/dL 0.5 - 0.9 mg/dL [place] GFR >60 >60 mL/min [place] GFR Non- >60 >60 mL/min [place] Glucose [Mass/Vol] 94 mg/dL 70 - 99 mg/dL [place] Potassium [Moles/Vol] 4.2 mmol/L 3.7 - 5.3 mmol/L [place] Protein [Mass/Vol] 6.8 g/dL 6.4 - 8.3 g/dL [place] Sodium [Moles/Vol] 136 mmol/L 135 - 144 mmol/L [place] Urea nitrogen [Mass/Vol] 9 mg/dL 6 - 20 mg/dL [place] Lactic Acidon 03-26-2020 Lactate [Moles/Vol] 1.3 mmol/L 0.5 - 2. 2 mmol/L [place] Lipaseon 03-26-2020 Interpretation and review of laboratory results Abnormal [place] Lipase [Catalytic activity/Vol] 225 U/L Critically high 13 - 60 U/L [place] Metabolic Panelon 03-26-2020 GFR/1.73 sq M predicted among non-blacks MDRD (S/P/Bld) [Vol rate/Area] [place] Comment on above: Average GFR for 50-5 9 years old: 93 mL/min/1.73sq m Chronic Kidney Disease: <60 mL/min/1.73sq m Kidney failure: <15 mL/min/1.73sq m eGFR calculated using average adult body mass. Additional eGFR calculator available at: [email or web address]/multiple_crcl_2012.htm Stage 1: Some kidney damage normal GFR Stage 2: Mild kidney damage GFR 60-89 Stage 3: Moderate kidney damage GFR 30-59 Stage 4: Severe kidney damage GFR 15-29 Stage 5: Severe kidney damage GFR <15 ESRD - chronic treatment by dialysis or transplant Otheron 03-26-2020 Interpretation and review of laboratory results Abnormal [place] SPECIMEN REJECTIONon 021 Ordered Test CDP [place] Reason for Rejection Unable to perform testing: Specimen clotted. [place] Specimen source Nom (Unsp spec) .BLOOD [place] - NOT REPORTED [place] Urinalysis, reflex to micros copicon 03-26-2020 Bilirubin Urine Negative NEGATIVE [place] Color, UA YELLOW YELLOW [place] Glucose, Ur Negative NEGATIVE [place] Ketones Ql (U) Negative NEGATIVE [place] Leukocyte esterase Test strip Ql (U) Negative NEGATIVE [place] Nitrite, Urine Negative NEGATIVE [place] pH, UA 5.5 [place] Protein (U) [Mass/Vol] Negative NEGATIVE [place] Specific [place], UA 1.010 [place] Turbidity UA CLEAR CLEAR [place] Urinalysis Comments NOT REPORTED [place] Urine Hgb Negative NEGATIVE [place] Urobilinogen, Urine Normal Normal [place] CBC auto differentialon 08-07 Basophils (Bld) [#/Vol] 0.04 10*3/uL [place] Basophils/100 WBC (Bld) 1 % 0 - 2 % [place] Differential Type NOT REPORTED [place] Eosinophils (Bld) [#/Vol] 0.10 10*3/uL [place] Eosinophils/100 WBC (Bld) 1 % 1 - 4 % [place] Erythrocyte distribution width (RBC) [Ratio] 13.0 % 11.8 - 14.4 % [place] Hematocrit (Bld) [Volume fraction] 35.2 % Low 36.3 - 47.1 % [place] Hemoglobin (Bld) [Mass/Vol] 11.7 g/dL Low 11.9 - 15.1 g/dL [place] Immature granulocytes (Bld) [#/Vol] 10*3/uL [place] Immature granulocytes (Bld) [#/Vol] 0 % 0 [place] Interpretation and review of laboratory results Abnormal [place] Lymphocytes (Bld) [#/Vol] 1.87 10*3/uL [place] Lymphocytes/100 WBC (Bld) 22 % Low 24 - 43 % [place] MCH (RBC) [Entitic mass] 32.5 pg 25.2 - 33.5 pg [place] MCHC (RBC) [Mass/Vol] 33.2 g/dL 28.4 - 34.8 g/dL [place] MCV (RBC) [Entitic vol] 97.8 fL 82.6 - 102.9 fL [place] Monocytes (Bld) [#/Vol] 0.86 10*3/uL [place] Monocytes/100 WBC (Bld) 10 % 3 - 12 % [place] Platelet mean volume (Bld) [Entitic vol] 9.8 fL 8.1 - 13.5 fL [place] Platelets (Bld) [#/Vol] NOT REPORTED [place] Platelets (Bld) [#/Vol] 178 10*3/uL [place] RBC (Bld) [#/Vol] 3.60 10*6/uL Low 3.95 - 5.11 m/uL [place] RBC morphology finding Nom (Bld) NOT REPORTED [place] Segmented neutrophils/100 WBC (Bld) 66 % High 36 - 65 % [place] Segs Absolute 5.53 [place] WBC (Bld) [#/Vol] 0.0 10*3/uL 0.0 per 100 WBC [place] WBC (Bld) [#/Vol] 8.4 10*3/uL [place] WBC Morphology NOT REPORTED [place] Lipaseon 08-25-2019 Lipase [Catalytic activity/Vol] 42 U/L 13 - 60 U/L [place] CBC auto differentialon 08-07 Basophils (Bld) [#/Vol] 0.04 10*3/uL [place] Basophils/100 WBC (Bld) 1 % 0 - 2 % [place] Differential Type NOT REPORTED [place] Eosinophils (Bld) [#/Vol] 0.08 10*3/uL [place] Eosinophils/100 WBC (Bld) 1 % 1 - 4 % [place] Erythrocyte distribution width (RBC) [Ratio] 12.9 % 11.8 - 14.4 % [place] Hematocrit (Bld) [Volume fraction] 35.9 % Low 36.3 - 47.1 % [place] Hemoglobin (Bld) [Mass/Vol] 11.9 g/dL 11.9 - 15.1 g/dL [place] Immature granulocytes (Bld) [#/Vol] 0 % 0 [place] Immature granulocytes (Bld) [#/Vol] 0.03 10*3/uL [place] Interpretation and review of laboratory results Abnormal [place] Lymphocytes (Bld) [#/Vol] 1.79 10*3/uL [place] Lymphocytes/100 WBC (Bld) 22 % Low 24 - 43 % [place] MCH (RBC) [Entitic mass] 32.3 pg 25.2 - 33.5 pg [place] MCHC (RBC) [Mass/Vol] 33.1 g/dL 28.4 - 34.8 g/dL [place] MCV (RBC) [Entitic vol] 97.6 fL 82.6 - 102.9 fL [place] Monocytes (Bld) [#/Vol] 0.75 10*3/uL [place] Monocytes/100 WBC (Bld) 9 % 3 - 12 % [place] Platelet mean volume (Bld) [Entitic vol] 10.1 fL 8.1 - 13.5 fL [place] Platelets (Bld) [#/Vol] 176 10*3/uL [place] Platelets (Bld) [#/Vol] NOT REPORTED [place] RBC (Bld) [#/Vol] 3.68 10*6/uL Low 3.95 - 5.11 m/uL [place] RBC morphology finding Nom (Bld) NOT REPORTED [place] Segmented neutrophils/100 WBC (Bld) 67 % High 36 - 65 % [place] Segs Absolute 5.61 [place] WBC (Bld) [#/Vol] 0.0 10*3/uL 0.0 per 100 WBC [place] WBC (Bld) [#/Vol] 8.3 10*3/uL [place] WBC Morphology NOT REPORTED [place] Lipaseon 08-24-2019 Interpretation and review of laboratory results Abnormal [place] Lipase [Catalytic activity/Vol] 69 U/L High 13 - 60 U/L [place] CBC auto differentialon 08-07 Basophils (Bld) [#/Vol] 0.05 10*3/uL [place] Basophils/100 WBC (Bld) 1 % 0 - 2 % [place] Differential Type NOT REPORTED [place] Eosinophils (Bld) [#/Vol] 0.13 10*3/uL [place] Eosinophils/100 WBC (Bld) 2 % 1 - 4 % [place] Erythrocyte distribution width (RBC) [Ratio] 13.2 % 11.8 - 14.4 % [place] Hematocrit (Bld) [Volume fraction] 36.7 % 36.3 - 47.1 % [place] Hemoglobin (Bld) [Mass/Vol] 11.8 g/dL Low 11.9 - 15.1 g/dL [place] Immature granulocytes (Bld) [#/Vol] 0 % 0 [place] Immature granulocytes (Bld) [#/Vol] 10*3/uL [place] Interpretation and review of laboratory results Abnormal [place] Lymphocytes (Bld) [#/Vol] 2.39 10*3/uL [place] Lymphocytes/100 WBC (Bld) 28 % 24 - 43 % [place] MCH (RBC) [Entitic mass] 32.1 pg 25.2 - 33.5 pg [place] MCHC (RBC) [Mass/Vol] 32.2 g/dL 28.4 - 34.8 g/dL [place] MCV (RBC) [Entitic vol] 99.7 fL 82.6 - 102.9 fL [place] Monocytes (Bld) [#/Vol] 0.77 10*3/uL [place] Monocytes/100 WBC (Bld) 9 % 3 - 12 % [place] Platelet mean volume (Bld) [Entitic vol] 10.1 fL 8.1 - 13.5 fL [place] Platelets (Bld) [#/Vol] 174 10*3/uL [place] Platelets (Bld) [#/Vol] NOT REPORTED [place] RBC (Bld) [#/Vol] 3.68 10*6/uL Low 3.95 - 5.11 m/uL [place] RBC morphology finding Nom (Bld) NOT REPORTED [place] Segmented neutrophils/100 WBC (Bld) 60 % 36 - 65 % [place] Segs Absolute 5.22 [place] WBC (Bld) [#/Vol] 0.0 10*3/uL 0.0 per 100 WBC [place] WBC (Bld) [#/Vol] 8.6 10*3/uL [place] WBC Morphology NOT REPORTED [place] Comprehensive metabolic pane nimesh 08-23-2019 Albumin [Mass/Vol] 3.4 g/dL Low 3.5 - 5.2 g/dL [place] Albumin/Globulin [Mass ratio] 1.7 {ratio} [place] ALP [Catalytic activity/Vol] 102 U/L 35 - 104 U/L [place] ALT [Catalytic activity/Vol] 34 U/L High 5 - 33 U/L [place] Anion gap [Moles/Vol] 7 mmol/L Low 9 - 17 mmol/L [place] AST [Catalytic activity/Vol] 95 U/L High <32 [place] Bilirubin Ql (U) 0.46 mg/dL 0.3 - 1.2 mg/dL [place] Bun/Cre Ratio 11 [place] Calcium [Mass/Vol] 8.4 mg/dL Low 8.6 - 10. 4 mg/dL [place] Chloride [Moles/Vol] 109 mmol/L High 98 - 10 7 mmol/L [place] CO2 [Moles/Vol] 22 mmol/L 20 - 31 mmol/L [place] Creatinine [Mass/Vol] 0.66 mg/dL 0.5 - 0.9 mg/dL [place] GFR >60 >60 mL/min [place] GFR Non- >60 >60 mL/min [place] Glucose [Mass/Vol] 89 mg/dL 70 - 99 mg/dL [place] Potassium [Moles/Vol] 4.3 mmol/L 3.7 - 5.3 mmol/L [place] Protein [Mass/Vol] 5.4 g/dL Low 6.4 - 8.3 g/dL [place] Sodium [Moles/Vol] 138 mmol/L 135 - 144 mmol/L [place] Urea nitrogen [Mass/Vol] 7 mg/dL 6 - 20 mg/dL [place] Lipaseon 06-16-2020 Lipase [Catalytic activity/Vol] 96 U/L High 13 - 60 U/L [place] Metabolic Panelon 08-23-2019 GFR/1.73 sq M predicted among non-blacks MDRD (S/P/Bld) [Vol rate/Area] [place] Comment on above: Stage 1: Some [...] body mass. Additional eGFR calculator available at: http://[email or web address]/multiple_crcl_2012.htm Otheron 08-23-2019 Interpretation and review of laboratory results Abnormal [place] CBC Auto Differentialon 08-07 Basophils (Bld) [#/Vol] 0.06 10*3/uL [place] Basophils/100 WBC (Bld) 1 % 0 - 2 % [place] Differential Type NOT REPORTED [place] Eosinophils (Bld) [#/Vol] 0.11 10*3/uL [place] Eosinophils/100 WBC (Bld) 1 % 1 - 4 % [place] Erythrocyte distribution width (RBC) [Ratio] 13.2 % 11.8 - 14.4 % [place] Hematocrit (Bld) [Volume fraction] 41.8 % 36.3 - 47.1 % [place] Hemoglobin (Bld) [Mass/Vol] 13.7 g/dL 11.9 - 15.1 g/dL [place] Immature granulocytes (Bld) [#/Vol] 0.03 10*3/uL [place] Immature granulocytes (Bld) [#/Vol] 0 % 0 [place] Interpretation and review of laboratory results Abnormal [place] Lymphocytes (Bld) [#/Vol] 2.23 10*3/uL [place] Lymphocytes/100 WBC (Bld) 24 % 24 - 43 % [place] MCH (RBC) [Entitic mass] 32.6 pg 25.2 - 33.5 pg [place] MCHC (RBC) [Mass/Vol] 32.8 g/dL 28.4 - 34.8 g/dL [place] MCV (RBC) [Entitic vol] 99.5 fL 82.6 - 102.9 fL [place] Monocytes (Bld) [#/Vol] 0.72 10*3/uL [place] Monocytes/100 WBC (Bld) 8 % 3 - 12 % [place] Platelet mean volume (Bld) [Entitic vol] 10.0 fL 8.1 - 13.5 fL [place] Platelets (Bld) [#/Vol] NOT REPORTED [place] Platelets (Bld) [#/Vol] 213 10*3/uL [place] RBC (Bld) [#/Vol] 4.20 10*6/uL 3.95 - 5.11 m/uL [place] RBC morphology finding Nom (Bld) NOT REPORTED [place] Segmented neutrophils/100 WBC (Bld) 66 % High 36 - 65 % [place] Segs Absolute 6.22 [place] WBC (Bld) [#/Vol] 0.0 10*3/uL 0.0 per 100 WBC [place] WBC (Bld) [#/Vol] 9.4 10*3/uL [place] WBC Morphology NOT REPORTED [place] Comprehensive Metabolic Pane nimesh 08-22-2019 Albumin [Mass/Vol] 4.1 g/dL 3.5 - 5.2 g/dL [place] Albumin/Globulin [Mass ratio] 1.6 {ratio} [place] ALP [Catalytic activity/Vol] 109 U/L High 35 - 104 U/L [place] ALT [Catalytic activity/Vol] 13 U/L 5 - 33 U/L [place] Anion gap [Moles/Vol] 9 mmol/L 9 - 17 mmol/L [place] AST [Catalytic activity/Vol] 22 U/L <32 [place] Bilirubin Ql (U) <0.10 Low 0.3 - 1.2 mg/dL [place] Bun/Cre Ratio 13 [place] Calcium [Mass/Vol] 9.2 mg/dL 8.6 - 10. 4 mg/dL [place] Chloride [Moles/Vol] 103 mmol/L 98 - 10 7 mmol/L [place] CO2 [Moles/Vol] 24 mmol/L 20 - 31 mmol/L [place] Creatinine [Mass/Vol] 0.63 mg/dL 0.5 - 0.9 mg/dL [place] GFR >60 >60 mL/min [place] GFR Non- >60 >60 mL/min [place] Glucose [Mass/Vol] 92 mg/dL 70 - 99 mg/dL [place] Interpretation and review of laboratory results Abnormal [place] Potassium [Moles/Vol] 3.8 mmol/L 3.7 - 5.3 mmol/L [place] Protein [Mass/Vol] 6.7 g/dL 6.4 - 8.3 g/dL [place] Sodium [Moles/Vol] 136 mmol/L 135 - 144 mmol/L [place] Urea nitrogen [Mass/Vol] 8 mg/dL 6 - 20 mg/dL [place] Lactic Acid, Plasmaon 2019 Lactate [Moles/Vol] 1.5 mmol/L 0.5 - 2. 2 mmol/L [place] Lactic Acid, Whole Blood NOT REPORTED 0.7 - 2.1 mmol/L [place] Lipaseon 08-22-2019 Interpretation and review of laboratory results Abnormal [place] Lipase [Catalytic activity/Vol] 255 U/L Critically high 13 - 60 U/L [place] Metabolic Panelon 08-22-2019 GFR/1.73 sq M predicted among non-blacks MDRD (S/P/Bld) [Vol rate/Area] [place] Comment on above: Average GFR for 50-5 9 years old: 93 mL/min/1.73sq m Chronic Kidney Disease: <60 mL/min/1.73sq m Kidney failure: <15 mL/min/1.73sq m eGFR calculated using average adult body mass. Additional eGFR calculator available at: http://[email or web address]/multiple_crcl_2012.htm Stage 1: Some kidney damage normal GFR Stage 2: Mild kidney damage GFR 60-89 Stage 3: Moderate kidney damage GFR 30-59 Stage 4: Severe kidney damage GFR 15-29 Stage 5: Severe kidney damage GFR <15 ESRD - chronic treatment by dialysis or transplant Urinalysis with Microscopico n 08-22-2019 Amorphous, UA NOT REPORTED None [place] Bacteria, UA NOT REPORTED None [place] Bilirubin Urine Negative NEGATIVE [place] Casts UA NOT REPORTED /LPF [place] Color, UA YELLOW YELLOW [place] Crystals, UA NOT REPORTED None /HPF [place] Epithelial Cells UA 2 TO 5 [place] Glucose, Ur Negative NEGATIVE [place] Interpretation and review of laboratory results Abnormal [place] Ketones Ql (U) Negative NEGATIVE [place] Leukocyte esterase Test strip Ql (U) Negative NEGATIVE [place] Mucus, UA NOT REPORTED None [place] Nitrite, Urine Negative NEGATIVE [place] Other Observations UA NOT REPORTED NOT REQ. [place] pH, UA 6.0 [place] Protein (U) [Mass/Vol] Negative NEGATIVE [place] RBC (U) [#/Vol] None [place] Renal Epithelial, UA NOT REPORTED 0 /HPF [place] Specific [place], UA <1.005 [facility] [place], [place] Trichomonas, UA NOT REPORTED None [facility] [place]alt- [place] Turbidity UA CLEAR CLEAR [facility], [place] Urinalysis Comments NOT REPORTED [facility] [place] Urine Hgb Negative NEGATIVE [facility], [place] Urobilinogen, Urine Normal Normal [facility], [place] WBC, UA None [facility] [place] Yeast, UA NOT REPORTED None [facility], [place] - [facility] [place] CBC WITH AUTO DIFFERENTIALon 03-04-2018 Basophils Auto #/vol (Bld) 0.07 10*3/uL Invalid Interpretation Code [facility] Basophils/100 WBC Auto (Bld) 0.7 % Invalid Interpretation Code [facility] Eosinophils Auto #/vol (Bld) 0.09 10*3/uL Invalid Interpretation Code [facility] Eosinophils/100 WBC Auto (Bld) 0.9 % Invalid Interpretation Code [facility] Erythrocyte distribution width Auto Entitic volume (RBC) 12.8 % Invalid Interpretation Code 11.6 - 14.8 % [facility] Hematocrit Auto Volume Fraction (Bld) 45.0 % Invalid Interpretation Code 36 - 46 % [facility] Hemoglobin mass conc (Bld) 15.4 g/dL Invalid Interpretation Code 12 - 16 g/dL [facility] Immature granulocytes #/vol (Bld) 0.03 10*3/uL Invalid Interpretation Code [facility] Immature granulocytes/100 WBC (Bld) 0.30 % Invalid Interpretation Code [facility] Comment on above: The IG parameter is the percentage of metamyelocytes, myelocytes, and promyelocytes. Interpretation and review of laboratory results Abnormal Invalid Interpretation Code [facility] Lymphocytes Auto #/vol (Bld) 2.22 10*3/uL Invalid Interpretation Code [facility] Lymphocytes/100 WBC Auto (Bld) 21.0 % Invalid Interpretation Code [facility] MCH Auto Entitic mass (RBC) 33.6 pg Invalid Interpretation Code 26 - 34 pg [facility] MCHC Auto mass conc (RBC) 34.2 g/dL Invalid Interpretation Code 31 - 37 g/dL [facility] MCV Auto Entitic volume (RBC) 98.0 fL Invalid Interpretation Code 80 - 100 fL [facility] Monocytes Auto #/vol (Bld) 0.82 10*3/uL Invalid Interpretation Code [facility] Monocytes/100 WBC Auto (Bld) 7.8 % Invalid Interpretation Code [facility] Neutrophils Auto #/vol (Bld) 7.33 10*3/uL High [facility] Neutrophils/100 WBC Auto (Bld) 69.3 % Invalid Interpretation Code [facility] Nucleated RBC #/vol (Bld) 0.00 10*3/uL Invalid Interpretation Code [facility] Nucleated RBC/100 WBC Ratio (Bld) 0.0 % Invalid Interpretation Code [facility] Platelet mean volume Auto Entitic volume (Bld) 10.1 fL Invalid Interpretation Code 9 - 15.5 fL [facility] Platelets Auto #/vol (Bld) 254 10*3/uL Invalid Interpretation Code [facility] RBC Auto #/vol (Bld) 4.59 10*6/uL Invalid Interpretation Code [facility] WBC Auto #/vol (Bld) 10.56 10*3/uL Invalid Interpretation Code [facility] Chem 7on 03-04-2018 Anion gap 3 molar conc 15 mmol/L Invalid Interpretation Code 10 - 20 mmol/L [facility] Chloride molar conc 103 mmol/L Invalid Interpretation Code 98 - 108 mmol/L [facility] Creatinine mass conc 0.85 mg/dL Invalid Interpretation Code 0.4 - 1.1 mg/dL [facility] GFR/1.73 sq M predicted among non-blacks MDRD vol rate/area (S/P/Bld) The eGFR should be used for monitoring renal function only and not for medication dosing. Invalid Interpretation Code [facility] GFR/1.73 sq M.predicted CKD-EPI vol rate/area (S/P/Bld) 81 Invalid Interpretation Code >=60 mL/min/1.7 3 m2 [facility] Glucose mass conc 92 mg/dL Invalid Interpretation Code 65 - 99 mg/dL [facility] HCO3 molar conc 25 mmol/L Invalid Interpretation Code 21 - 32 mmol/L [facility] Potassium molar conc 4.4 mmol/L Invalid Interpretation Code 3.5 - 5.1 mmol/L [facility] Sodium molar conc 139 mmol/L Invalid Interpretation Code 135 - 145 mmol/L [facility] Urea nitrogen mass conc 7 mg/dL Low 8 - 25 mg/dL [facility] Urea nitrogen/Creatinine mass ratio 8.2 mg/mg Low [facility] Hepatic Function Panel (LFT) on 03-04-2018 Albumin mass conc 4.5 g/dL Invalid Interpretation Code 3.2 - 5.2 g/dL [facility] ALP enzyme act/vol 97 U/L Invalid Interpretation Code 40 - 150 U/L [facility] ALT enzyme act/vol 9 U/L Invalid Interpretation Code 0 - 40 U/L [facility] AST enzyme act/vol 15 U/L Invalid Interpretation Code 0 - 45 U/L [facility] Bilirubin mass conc mg/dL Invalid Interpretation Code 0 - 1.3 mg/dL [facility] Bilirubin.conjugated mass conc mg/dL Invalid Interpretation Code 0 - 0.4 mg/dL [facility] Interpretation and review of laboratory results Normal Invalid Interpretation Code [facility] Protein mass conc 7.2 g/dL Invalid Interpretation Code 6 - 8 g/dL [facility] Lipaseon 03-04-2018 Lipase enzyme act/vol 179 U/L High 15 - 6 5 U/L [facility] Otheron 03-04-2018 Extra Tube Hold for add-ons. Invalid Interpretation Code [facility] Comment on above: Auto resulted. Interpretation and review of laboratory results Abnormal Invalid Interpretation Code [facility] URINALYSISon 03-04-2018 Bacteria Auto Ql (U) Rare Abnormal None Se en /hpf [facility] Bilirubin Ql (U) Negative Invalid Interpretation Code Negative [facility] Clarity Refractometry automated Nom (U) Clear Invalid Interpretation Code Clear [facility] Color Auto Nom (U) Colorless Invalid Interpretation Code Colorless, Yellow [facility] Epithelial cells.squamous Auto #/area (Urine sed) 1 Invalid Interpretation Code [facility] Glucose Automated test strip mass conc (U) Negative Invalid Interpretation Code Negative mg/dL [facility] Hemoglobin Automated test strip Ql (U) Negative Invalid Interpretation Code Negative [facility] Interpretation and review of laboratory results Abnormal Invalid Interpretation Code [facility] Ketones mass conc (U) Negative Invalid Interpretation Code Negative mg/dL [facility] Leukocyte esterase Automated test strip Ql (U) Negative Invalid Interpretation Code Negative [facility] Nitrite Automated test strip Ql (U) Negative Invalid Interpretation Code Negative [facility] pH Test strip (U) 7.0 [pH] Invalid Interpretation Code [facility] Protein mass conc (U) Negative Invalid Interpretation Code Negative mg/dL [facility] RBC Auto #/area (Urine sed) 2 Invalid Interpretation Code [facility] Specific gravity Automated test strip Relative Density (U) 1.004 Low [facility] Urobilinogen Test strip Qn (U) <2.0 Invalid Interpretation Code <2.0 mg/dL [facility] WBC Auto #/area (Urine sed) <1 Invalid Interpretation Code [facility] Microscopic examinat ion is performed on all urinalysis samples and only positive findings are reported. The test for blood on the chemical analytic portion of urinalysis may also be positive due to hemoglobinuria and myoglobinuria and if red blood cells are present they are quantified by microscopic examination. Invalid Interpretation Code [facility] BMPon 08-24-2017 Anion gap 18 mmol/L Invalid Interpretation Code 10 - 20 mmol/L [facility] Bicarbonate (HCO3) 27 mmol/L Invalid Interpretation Code 21 - 32 mmol/L [facility] BUN/Creatinine Ratio 10.1 mg/mg Invalid Interpretation Code 10.0 - 20.0 [facility] Calcium 10.6 mg/dL High 8.4 - 10.2 mg/dL [facility] Chloride 101 mmol/L Invalid Interpretation Code 98 - 108 mmol/L [facility] Creatinine 0.69 mg/dL Invalid Interpretation Code 0.4 - 1.1 mg/dL [facility] eGFR (non-black) 103 mL/min/{1.73_m2} Invalid Interpretation Code >=60 [facility] eGFR (non-black) The eGFR should be u sed for monitoring renal function only and not for medication dosing. Invalid Interpretation Code [facility] Glucose mass conc 105 mg/dL High 65 - 99 mg/dL [facility] Interpretation and review of laboratory results Abnormal Invalid Interpretation Code [facility] Potassium molar conc 4.1 mmol/L Invalid Interpretation Code 3.5 - 5.1 mmol/L [facility] Sodium 142 mmol/L Invalid Interpretation Code 135 - 145 mmol/L [facility] Urea nitrogen 7 mg/dL Low 8 - 25 mg/dL [facility] CBC Auto Differentialon 08-07 Basophils Auto #/vol (Bld) 0.08 K/mcL Invalid Interpretation Code 0.00 - 0.30 [facility] Basophils/100 WBC Auto (Bld) 0.6 % Invalid Interpretation Code [facility] Eosinophils 0.05 K/mcL Invalid Interpretation Code 0.00 - 0.50 [facility] Eosinophils/100 leukocytes 0.4 % Invalid Interpretation Code [facility] Erythrocyte distribution width Auto Entitic volume (RBC) 12.2 % Invalid Interpretation Code 11.6 - 14.8 % [facility] Erythrocytes (RBC) 4.60 M/mcL Invalid Interpretation Code 4.00 - 5.20 [facility] Hematocrit (HCT) 43.4 % Invalid Interpretation Code 36 - 46 % [facility] Hemoglobin mass conc (Bld) 15.2 g/dL Invalid Interpretation Code 12 - 16 g/dL [facility] Immature granulocytes #/vol (Bld) 0.05 K/mcL Invalid Interpretation Code 0.00 - 0.30 [facility] Immature granulocytes/100 WBC (Bld) 0.40 % Invalid Interpretation Code [facility] Comment on above: The IG parameter is the percentage of metamyelocytes, myelocytes, and promyelocytes. Lymphocytes 2.40 K/mcL Invalid Interpretation Code 0.90 - 4.00 [facility] Lymphocytes/100 leukocytes 18.1 % Invalid Interpretation Code [facility] MCH 33.0 pg Invalid Interpretation Code 26 - 34 pg [facility] MCHC mass conc (RBC) 35.0 g/dL Invalid Interpretation Code 31 - 37 g/dL [facility] MCV 94.3 fL Invalid Interpretation Code 80 - 100 fL [facility] Monocytes 0.85 K/mcL Invalid Interpretation Code 0.30 - 0.90 [facility] Monocytes/100 leukocytes 6.4 % Invalid Interpretation Code [facility] Neutrophils 9.81 K/mcL High 1.70 - 7.00 [facility] Neutrophils/100 WBC Auto (Bld) 74.1 % Invalid Interpretation Code [facility] Nucleated erythrocytes 0.00 K/mcL Invalid Interpretation Code 0.00 - 0.00 [facility] Nucleated erythrocytes/100 erythrocytes 0.0 % Invalid Interpretation Code [facility] Platelet mean volume (PMV) 10.0 fL Invalid Interpretation Code 9 - 15.5 fL [facility] Platelets 242 K/mcL Invalid Interpretation Code 150 - 400 [facility] WBC (Leukocytes) 13.24 K/mcL High 4.50 - 11.00 [facility] CBC w/ Diffon 08-24-2017 Creatinine The following orders were created for panel order CBC w/ Diff. Procedure Abnormality Status --------- ------ CBC Auto Differential[[id number]] Abnormal Final result Please view results for these tests on the individual orders. Invalid Interpretation Code [facility] CT ABDOMEN PELVIS WITH IV CO [...] and demonstrated a prominent signal loss on [id number] images on MRI performed 09/06/2014, compatible with [...] ThuAug 24, 2017 4:03:34 PM EDT Normal [facility] Comment on above: Order Comment: Reaso n for exam?:abd painInjury/Trauma or Illness?:Illness/OtherHow long have you had these symptoms (acute/chronic)?:ChronicType of Exam?:Subsequent/Follow-upAdditional signs and symptoms?:chronic pancreatitis CT Abdomen Pelvis With IV Co ntrast Onlyon 08-24-2017 CT Abdomen Pelvis With IV Contrast Only [facility] - 08/24/2017 4:06 PM [...] and demonstrated a prominent signal loss on dot-[id number] images on MRI performed 09/06/2014, compatible with [...] probably remain. 5. Small left adrenal adenoma. [employer] Workstation ID: [id number] Invalid Interpretation Code [employer] [facility] CT Abdomen Pelvis With IV Contrast [...] and demonstrated a prominent signal loss on irg-tp-[id number] images on MRI performed 09/06/2014, compatible with [...] suspicious focal osseous lesions. Invalid Interpretation Code [facility] CT Abdomen Pelvis With IV Contrast Only [...] probably remain. 5. Small left adrenal adenoma. [employer] Work[employer] ID: [id number] Invalid Interpretation Code [facility] Hepatic Function Panel (LFT) on 08-24-2017 Alanine aminotransferase (ALT) 14 U/L Invalid Interpretation Code 0 - 40 U/L [facility] Albumin 4.7 g/dL Invalid Interpretation Code 3.2 - 5.2 g/dL [facility] Alkaline phosphatase (ALP) 91 U/L Invalid Interpretation Code 40 - 150 U/L [facility] Aspartate aminotransferase (AST) 17 U/L Invalid Interpretation Code 0 - 45 U/L [facility] Bilirubin (conjugated) mg/dL Invalid Interpretation Code 0 - 0.4 mg/dL [facility] Bilirubin (total) mg/dL Invalid Interpretation Code 0 - 1.3 mg/dL [facility] Interpretation and review of laboratory results Normal Invalid Interpretation Code [facility] Protein 7.4 g/dL Invalid Interpretation Code 6 - 8 g/dL [facility] Lactic Acid, Plasmaon 2017 Lactate 1.0 mmol/L Invalid Interpretation Code 0.6 - 2 mmol/L [facility] Light Blue Topon 08-24-2017 Extra Tube Hold for add-ons. Invalid Interpretation Code [facility] Comment on above: Auto resulted. Lipaseon 08-24-2017 Lipase 51 U/L Invalid Interpretation Code 15 - 65 U/L [facility] [place] Topon 08-24-2017 [place] Top Invalid Interpretation Code [facility] [place] Draw[place] 08-24-2017 Creatinine The following orders were created for panel order [place] [facility]. Procedure Abnormality Status --------- ------ Gold Top[[id number]] Final result Light Blue Top[[id number]] Final result [place] Top[[id number]] Final result Please view results for these tests on the individual orders. Invalid Interpretation Code [facility]-2017 Bilirubin Ql (U) Negative Invalid Interpretation Code Negative [facility] Blood, Urine Negative Invalid Interpretation Code Negative [facility] Interpretation and review of laboratory results Abnormal Invalid Interpretation Code [facility] Nitrite, Urine Negative Invalid Interpretation Code Negative [facility] Squamous Epithelial 5 /hpf High 0 - 4 [facility] Transitional Epithelial <1 Invalid Interpretation Code 0 - 1 /hpf [facility] Urine, bacteria in sediment Rare Abnormal None Seen /hpf [facility] Urine, clarity Hazy Abnormal Clear [facility] Urine, color Yellow Invalid Interpretation Code Colorless, Yellow [facility] Urine, erythrocytes 1 /hpf Invalid Interpretation Code 0 - 3 [facility] Urine, glucose presence Negative Invalid Interpretation Code Negative mg/dL [facility] Urine, ketones presence Negative Invalid Interpretation Code Negative mg/dL [facility] Urine, leukocyte esterase presence Negative Invalid Interpretation Code Negative [facility] Urine, pH 7.0 [pH] Invalid Interpretation Code 5.0 - 7.0 [facility] Urine, protein Negative Invalid Interpretation Code Negative mg/dL [facility] Urine, specific gravity 1.006 1 Invalid Interpretation Code 1.005 - 1.025 [facility] Urine, urobilinogen <2.0 Invalid Interpretation Code <2.0 mg/dL [facility] WBCs, Urine 1 /hpf Invalid Interpretation Code 0 - 5 [facility] Urinalysis Microscopic examinat ion is performed on all urinalysis samples and only positive findings are reported. The test for blood on the chemical analytic portion of urinalysis may also be positive due to hemoglobinuria and myoglobinuria and if red blood cells are present they are quantified by microscopic examination. Invalid Interpretation Code [facility] BMPon 06-09-2017 Anion gap 18 mmol/L Invalid Interpretation Code 10 - 20 mmol/L [facility] Bicarbonate (HCO3) 21 mmol/L Invalid Interpretation Code 21 - 32 mmol/L [facility] BUN/Creatinine Ratio 11.0 mg/mg Invalid Interpretation Code 10.0 - 20.0 [facility] Calcium 10.2 mg/dL Invalid Interpretation Code 8.4 - 10.2 mg/dL [facility] Chloride 102 mmol/L Invalid Interpretation Code 98 - 108 mmol/L [facility] Creatinine 0.73 mg/dL Invalid Interpretation Code 0.4 - 1.1 mg/dL [facility] eGFR (non-black) The eGFR should be u sed for monitoring renal function only and not for medication dosing. Invalid Interpretation Code [facility] eGFR (non-black) 98 mL/min/{1.73_m2} Invalid Interpretation Code >=60 [facility] Glucose 80 mg/dL Invalid Interpretation Code 65 - 99 mg/dL [facility] Potassium 4.3 mmol/L Invalid Interpretation Code 3.5 - 5.1 mmol/L [facility] Sodium 137 mmol/L Invalid Interpretation Code 135 - 145 mmol/L [facility] Urea nitrogen 8 mg/dL Invalid Interpretation Code 8 - 25 mg/dL [facility] CBC Auto Differentialon 04-0 Basophils 0.07 K/mcL Invalid Interpretation Code 0.00 - 0.30 [facility] Basophils/100 leukocytes 0.7 % Invalid Interpretation Code [facility] Eosinophils 0.10 K/mcL Invalid Interpretation Code 0.00 - 0.50 [facility] Eosinophils/100 leukocytes 1.0 % Invalid Interpretation Code [facility] Erythrocytes (RBC) 4.75 M/mcL Invalid Interpretation Code 4.00 - 5.20 [facility] Erythrocytes (RBC) 0.00 K/mcL Invalid Interpretation Code 0.00 - 0.00 [facility] Hematocrit (HCT) 46.1 % High 36 - 46 % [facility] Hemoglobin (HGB) 16.1 g/dL High 12 - 16 g/dL [facility] IG Absolute 0.02 K/mcL Invalid Interpretation Code 0.00 - 0.30 [facility] IG Percent 0.20 % Invalid Interpretation Code [facility] Lymphocytes 1.75 K/mcL Invalid Interpretation Code 0.90 - 4.00 [facility] Lymphocytes/100 leukocytes 17.9 % Invalid Interpretation Code [facility] MCH 33.9 pg Invalid Interpretation Code 26 - 34 pg [facility] MCHC 34.9 g/dL Invalid Interpretation Code 31 - 37 g/dL [facility] MCV 97.1 fL Invalid Interpretation Code 80 - 100 fL [facility] Monocytes 0.88 K/mcL Invalid Interpretation Code 0.30 - 0.90 [facility] Monocytes/100 leukocytes 9.0 % Invalid Interpretation Code [facility] Neutrophils 6.98 K/mcL Invalid Interpretation Code 1.70 - 7.00 [facility] Neutrophils/100 leukocytes 71.2 % Invalid Interpretation Code [facility] Nucleated erythrocytes/100 erythrocytes 0.0 % Invalid Interpretation Code [facility] Platelet mean volume (PMV) 10.9 fL Invalid Interpretation Code 9 - 15.5 fL [facility] Platelets 223 K/mcL Invalid Interpretation Code 150 - 400 [facility] RDW-CA 12.8 % Invalid Interpretation Code 11.6 - 14.8 % [facility] WBC (Leukocytes) 9.80 K/mcL Invalid Interpretation Code 4.50 - 11.00 [facility] Interpretation and review of laboratory results Abnormal Invalid Interpretation Code [facility] CBC w/ Diffon 06-09-2017 Creatinine The following orders were created for panel order CBC w/ Diff. Procedure Abnormality Status --------- ------ CBC Auto Differential[[id number]] Abnormal Final result Please view results for these tests on the individual orders. Invalid Interpretation Code [facility] Hepatic Function Panel (LFT) on 06-09-2017 Alanine aminotransferase (ALT) 10 U/L Invalid Interpretation Code 0 - 40 U/L [facility] Albumin 4.4 g/dL Invalid Interpretation Code 3.2 - 5.2 g/dL [facility] Alkaline phosphatase (ALP) 89 U/L Invalid Interpretation Code 40 - 150 U/L [facility] Aspartate aminotransferase (AST) 20 U/L Invalid Interpretation Code 0 - 45 U/L [facility] Bilirubin (conjugated) mg/dL Invalid Interpretation Code 0 - 0.4 mg/dL [facility] Bilirubin (total) mg/dL Invalid Interpretation Code 0 - 1.3 mg/dL [facility] Interpretation and review of laboratory results Normal Invalid Interpretation Code [facility] Protein 7.3 g/dL Invalid Interpretation Code 6 - 8 g/dL [facility] Lipaseon 06-09-2017 Lipase 50 U/L Invalid Interpretation Code 15 - 65 U/L [facility] [place] Draw[place] 06-09-2017 Creatinine The following orders were created for panel order [place] [facility]. Procedure Abnormality Status --------- ------ Urine Container[[id number]] Final result Please view results for these tests on the individual orders. Invalid Interpretation Code [facility] Urinalysison 06-09-2017 Bilirubin, Urine Negative Invalid Interpretation Code Negative [facility] Blood, Urine Negative Invalid Interpretation Code Negative [facility] Calcium Many Abnormal None Seen /hpf [facility] Mucus, Urine Rare Invalid Interpretation Code None Seen, Rare /lpf [facility] Nitrite, Urine Negative Invalid Interpretation Code Negative [facility] RBCs, Urine 1 /hpf Invalid Interpretation Code 0 - 3 [facility] Squamous Epithelial 4 /hpf Invalid Interpretation Code 0 - 4 [facility] Urine, bacteria in sediment None Seen Invalid Interpretation Code None Seen /hpf [facility] Urine, clarity Cloudy Abnormal Clear [facility] Urine, color Yellow Invalid Interpretation Code Colorless, Yellow [facility] Urine, glucose presence Negative Invalid Interpretation Code Negative mg/dL [facility] Urine, ketones presence Trace Abnormal Negative mg/dL [facility] Urine, leukocyte esterase presence Negative Invalid Interpretation Code Negative [facility] Urine, pH 5.0 [pH] Invalid Interpretation Code 5.0 - 7.0 [facility] Urine, protein Negative Invalid Interpretation Code Negative mg/dL [facility] Urine, specific gravity 1.024 1 Invalid Interpretation Code 1.005 - 1.025 [facility] Urine, urobilinogen 2.0 mg/dL Abnormal <2.0 [facility] WBCs, Urine 1 /hpf Invalid Interpretation Code 0 - 5 [facility] Urinalysis Microscopic examinat ion is performed on all urinalysis samples and only positive findings are reported. The test for blood on the chemical analytic portion of urinalysis may also be positive due to hemoglobinuria and myoglobinuria and if red blood cells are present they are quantified by microscopic examination. Invalid Interpretation Code [facility] Urine Containeron 06-09-2017 Urine Container Invalid Interpretation Code [facility] CBCon 05-15-2017 Erythrocytes (RBC) 3.76 M/mcL Low 4.00 - 5.20 [facility] Erythrocytes (RBC) 0.00 K/mcL Invalid Interpretation Code 0.00 - 0.00 [facility] Hematocrit (HCT) 37.1 % Invalid Interpretation Code 36 - 46 % [facility] Hemoglobin (HGB) 12.4 g/dL Invalid Interpretation Code 12 - 16 g/dL [facility] MCH 33.0 pg Invalid Interpretation Code 26 - 34 pg [facility] MCHC 33.4 g/dL Invalid Interpretation Code 31 - 37 g/dL [facility] MCV 98.7 fL Invalid Interpretation Code 80 - 100 fL [facility] Nucleated erythrocytes/100 erythrocytes 0.0 % Invalid Interpretation Code [facility] Platelet mean volume (PMV) 9.9 fL Invalid Interpretation Code 9 - 15.5 fL [facility] Platelets 197 K/mcL Invalid Interpretation Code 150 - 400 [facility] RDW-CA 12.6 % Invalid Interpretation Code 11.6 - 14.8 % [facility] WBC (Leukocytes) 7.55 K/mcL Invalid Interpretation Code 4.50 - 11.00 [facility] Comprehensive Metabolic Pane nimesh 05-15-2017 Alanine aminotransferase (ALT) 9 U/L Invalid Interpretation Code 0 - 40 U/L [facility] Albumin 3.3 g/dL Invalid Interpretation Code 3.2 - 5.2 g/dL [facility] Alkaline phosphatase (ALP) 73 U/L Invalid Interpretation Code 40 - 150 U/L [facility] Anion gap 15 mmol/L Invalid Interpretation Code 10 - 20 mmol/L [facility] Aspartate aminotransferase (AST) 13 U/L Invalid Interpretation Code 0 - 45 U/L [facility] Bicarbonate (HCO3) 23 mmol/L Invalid Interpretation Code 21 - 32 mmol/L [facility] Bilirubin (total) 0.2 mg/dL Invalid Interpretation Code 0 - 1.3 mg/dL [facility] BUN/Creatinine Ratio 9.4 mg/mg Low 10.0 - 20.0 [facility] Calcium 8.4 mg/dL Invalid Interpretation Code 8.4 - 10.2 mg/dL [facility] Chloride 108 mmol/L Invalid Interpretation Code 98 - 108 mmol/L [facility] Creatinine 0.64 mg/dL Invalid Interpretation Code 0.4 - 1.1 mg/dL [facility] eGFR (non-black) The eGFR should be u sed for monitoring renal function only and not for medication dosing. Invalid Interpretation Code [facility] eGFR (non-black) 107 mL/min/{1.73_m2} Invalid Interpretation Code >=60 [facility] Glucose 91 mg/dL Invalid Interpretation Code 65 - 99 mg/dL [facility] Potassium 4.0 mmol/L Invalid Interpretation Code 3.5 - 5.1 mmol/L [facility] Protein 5.3 g/dL Low 6 - 8 g/dL [facility] Sodium 142 mmol/L Invalid Interpretation Code 135 - 145 mmol/L [facility] Urea nitrogen 6 mg/dL Low 8 - 25 mg/dL [facility] Lipaseon 05-15-2017 Interpretation and review of laboratory results Normal Invalid Interpretation Code [facility] Lipase 31 U/L Invalid Interpretation Code 15 - 65 U/L [facility] Lipid Panelon 05-15-2017 Cholesterol 193 mg/dL Invalid Interpretation Code 100 - 199 mg/dL [facility] Cholesterol to HDL Ratio 7.1 {ratio} Invalid Interpretation Code [facility] HDL Cholesterol 27 mg/dL Low 40 - 59 mg/dL [facility] HDL Cholesterol 166 mg/dL Invalid Interpretation Code [facility] Interpretation and review of laboratory results Abnormal Invalid Interpretation Code [facility] LDL Cholesterol 108 mg/dL Invalid Interpretation Code 10 - 130 mg/dL [facility] Triglyceride 291 mg/dL High 30 - 150 mg/dL [facility] BMPon 05-14-2017 Anion gap 18 mmol/L Invalid Interpretation Code 10 - 20 mmol/L [facility] Bicarbonate (HCO3) 25 mmol/L Invalid Interpretation Code 21 - 32 mmol/L [facility] BUN/Creatinine Ratio 11.8 mg/mg Invalid Interpretation Code 10.0 - 20.0 [facility] Calcium 10.7 mg/dL High 8.4 - 10.2 mg/dL [facility] Chloride 102 mmol/L Invalid Interpretation Code 98 - 108 mmol/L [facility] Creatinine 0.68 mg/dL Invalid Interpretation Code 0.4 - 1.1 mg/dL [facility] eGFR (non-black) The eGFR should be u sed for monitoring renal function only and not for medication dosing. Invalid Interpretation Code [facility] eGFR (non-black) 105 mL/min/{1.73_m2} Invalid Interpretation Code >=60 [facility] Glucose 86 mg/dL Invalid Interpretation Code 65 - 99 mg/dL [facility] Potassium 4.0 mmol/L Invalid Interpretation Code 3.5 - 5.1 mmol/L [facility] Sodium 141 mmol/L Invalid Interpretation Code 135 - 145 mmol/L [facility] Urea nitrogen 8 mg/dL Invalid Interpretation Code 8 - 25 mg/dL [facility] CBC Auto Differentialon 03-0 Basophils 0.09 K/mcL Invalid Interpretation Code 0.00 - 0.30 [facility] Basophils/100 leukocytes 0.8 % Invalid Interpretation Code [facility] Eosinophils 0.08 K/mcL Invalid Interpretation Code 0.00 - 0.50 [facility] Eosinophils/100 leukocytes 0.7 % Invalid Interpretation Code [facility] Erythrocytes (RBC) 0.00 K/mcL Invalid Interpretation Code 0.00 - 0.00 [facility] Erythrocytes (RBC) 4.96 M/mcL Invalid Interpretation Code 4.00 - 5.20 [facility] Hematocrit (HCT) 48.5 % High 36 - 46 % [facility] Hemoglobin (HGB) 16.6 g/dL High 12 - 16 g/dL [facility] IG Absolute 0.04 K/mcL Invalid Interpretation Code 0.00 - 0.30 [facility] IG Percent 0.40 % Invalid Interpretation Code [facility] Interpretation and review of laboratory results Abnormal Invalid Interpretation Code [facility] Lymphocytes 1.89 K/mcL Invalid Interpretation Code 0.90 - 4.00 [facility] Lymphocytes/100 leukocytes 17.7 % Invalid Interpretation Code [facility] MCH 33.5 pg Invalid Interpretation Code 26 - 34 pg [facility] MCHC 34.2 g/dL Invalid Interpretation Code 31 - 37 g/dL [facility] MCV 97.8 fL Invalid Interpretation Code 80 - 100 fL [facility] Monocytes 0.74 K/mcL Invalid Interpretation Code 0.30 - 0.90 [facility] Monocytes/100 leukocytes 6.9 % Invalid Interpretation Code [facility] Neutrophils 7.86 K/mcL High 1.70 - 7.00 [facility] Neutrophils/100 leukocytes 73.5 % Invalid Interpretation Code [facility] Nucleated erythrocytes/100 erythrocytes 0.0 % Invalid Interpretation Code [facility] Platelet mean volume (PMV) 9.8 fL Invalid Interpretation Code 9 - 15.5 fL [facility] Platelets 275 K/mcL Invalid Interpretation Code 150 - 400 [facility] RDW-CA 12.8 % Invalid Interpretation Code 11.6 - 14.8 % [facility] WBC (Leukocytes) 10.70 K/mcL Invalid Interpretation Code 4.50 - 11.00 [facility] CBC w/ Diffon 05-14-2017 Creatinine The following orders were created for panel order CBC w/ Diff. Procedure Abnormality Status --------- ------ CBC Auto Differential[[id number]] Abnormal Final result Please view results for these tests on the individual orders. Invalid Interpretation Code [facility] CT ABDOMEN PELVIS WITH IV CO [...] appendix in the left lower pelvis.Workstation ID: [id number] by: SARAH ANN on ThuMay 14, 2017 4:08:10 PM ESTTranscribed by: SARAH ANN on ThuMay 14, 2017 4:08:10 PM ESTFinalized by: SARAH ANN on ThuMay 14, 2017 4:08:10 PM EST Normal [facility] Comment on above: Order Comment: Reaso [...] at L1-L2 and L4-L5. Invalid Interpretation Code [employer] [facility] CT Abdomen Pelvis With IV Contrast Only Interface, Rad [facility] 05/14/2017 4:10 PM EST EXAMINATION: CT [...] in the left lower pelvis. Workstation ID: [id number] Invalid Interpretation Code [facility] Abdomen Pelvis With IV Contrast [...] in the left lower pelvis. Workstation ID: [id number] Invalid Interpretation Code [facility] Ruff Topon 05-14-2017 Extra Tube Hold for add-ons. Invalid Interpretation Code [facility] Hepatic Function Panel (LFT) on 05-14-2017 Alanine aminotransferase (ALT) 13 U/L Invalid Interpretation Code 0 - 40 U/L [facility] Albumin 4.8 g/dL Invalid Interpretation Code 3.2 - 5.2 g/dL [facility] Alkaline phosphatase (ALP) 102 U/L Invalid Interpretation Code 40 - 150 U/L [facility] Aspartate aminotransferase (AST) 20 U/L Invalid Interpretation Code 0 - 45 U/L [facility] Bilirubin (conjugated) mg/dL Invalid Interpretation Code 0 - 0.4 mg/dL [facility] Bilirubin (total) 0.2 mg/dL Invalid Interpretation Code 0 - 1.3 mg/dL [facility] Interpretation and review of laboratory results Normal Invalid Interpretation Code [facility] Protein 7.9 g/dL Invalid Interpretation Code 6 - 8 g/dL [facility] Lipaseon 05-14-2017 Lipase 137 U/L High 15 - 65 U/L [facility] Weatherby Topon 05-14-2017 Weatherby Top Invalid Interpretation Code [facility] [place] Draw[facility] 05-14-2017 Creatinine The following orders were created for panel order [place] [facility]. Procedure Abnormality Status --------- ------ Gold Top[[id number]] Final result Light Blue Top[[id number]] Final result Ruff Top[[id number]] Final result [place] Top[[id number]] Final result Please view results for these tests on the individual orders. Invalid Interpretation Code [facility] Urinalysison 05-14-2017 Bilirubin, Urine Negative Invalid Interpretation Code Negative [facility] Blood, Urine Negative Invalid Interpretation Code Negative [facility] Interpretation and review of laboratory results Abnormal Invalid Interpretation Code [facility] Mucus, Urine Rare Invalid Interpretation Code None Seen, Rare /lpf [facility] Nitrite, Urine Negative Invalid Interpretation Code Negative [facility] RBCs, Urine 2 /hpf Invalid Interpretation Code 0 - 3 [facility] Squamous Epithelial 3 /hpf Invalid Interpretation Code 0 - 4 [facility] Urine, bacteria in sediment Rare Abnormal None Seen /hpf [facility] Urine, clarity Clear Invalid Interpretation Code Clear [facility] Urine, color Yellow Invalid Interpretation Code Colorless, Yellow [facility] Urine, glucose presence Negative Invalid Interpretation Code Negative mg/dL [facility] Urine, ketones presence Negative Invalid Interpretation Code Negative mg/dL [facility] Urine, leukocyte esterase presence Negative Invalid Interpretation Code Negative [facility] Urine, pH 5.0 [pH] Invalid Interpretation Code 5.0 - 7.0 [facility] Urine, protein Negative Invalid Interpretation Code Negative mg/dL [facility] Urine, specific gravity 1.006 1 Invalid Interpretation Code 1.005 - 1.025 [facility] Urine, urobilinogen <2.0 Invalid Interpretation Code <2.0 mg/dL [facility] WBCs, Urine 1 /hpf Invalid Interpretation Code 0 - 5 [facility] Urinalysis Microscopic examinat ion is performed on all urinalysis samples and only positive findings are reported. The test for blood on the chemical analytic portion of urinalysis may also be positive due to hemoglobinuria and myoglobinuria and if red blood cells are present they are quantified by microscopic examination. Invalid Interpretation Code [facility] Vital Signs Date Time Vital Sign Value Performing Clinician Facility 11-17-2024 16:30-0400 Diastolic blood pressure 72 mm[Hg] Josse Romo MD Work Phone: [facility] 11-17-2024 16:30-0400 Heart rate 78 /min Josse Romo MD Work Phone: [facility] 11-17-2024 16:30-0400 Respiratory rate 16 /min Josse Romo MD Work Phone: [facility] 11-17-2024 16:30-0400 SaO2% (BldA) [Mass fraction] 98 % Josse Romo MD Work Phone: [facility] 11-17-2024 16:30-0400 Systolic blood pressure 122 mm[Hg] Josse Romo MD Work Phone: [facility] 11-17-2024 15:21-0400 Body temperature 97.9 [degF] Josse Romo MD Work Phone: [facility] 11-17-2024 14:13-0400 Body height 157.5 cm Josse Romo MD Work Phone: [facility] 11-17-2024 14:13-0400 Body mass index (BMI) [Ratio] 21.95 kg/m2 Josse Romo MD Work Phone: [facility] 11-17-2024 14:13-0400 Body weight 54.43 kg Josse Romo MD Work Phone: [facility] 11-09-2024 07:01-0400 Body temperature 98.29 [degF] Raji Gilliam MD Work Phone: [facility] [employer] 11-09-2024 07:01-0400 Diastolic blood pressure 84 mm[Hg] [facility] 11-09-2024 07:01-0400 Heart rate 89 /min Raji Gilliam MD [facility] Phone[facility] [employer] 11-09-2024 07:01-0400 Respiratory rate 16 /min Raji [facility]illiam MD [facility] 11-09-2024 07:01-0400 SaO2% (BldA) [Mass fraction] 97 % Raji Gilliam MD Work Phone: [facility] [employer] 11-09-2024 07:01-0400 Systolic blood pressure 131 mm[Hg] Raji Gilliam MD Work Phone: [facility] [employer] 11-09-2024 00:25-0400 Body mass index (BMI) [Ratio] 22.09 kg/m2 Raji Gilliam MD Work Phone: [facility] 11-09-2024 00:25-0400 Body weight 54.8 kg Raji Gilliam MD Work Phone: [facility] 11-07-2024 10:47-0400 Body height 157.5 cm Raji Gilliam MD Work Phone: [facility] 11-02-2024 12:55-0400 Body height 157.5 cm Lindsey Montse ART SALES CONSULTANT.CABLE INSTALLER REPAIRER HELPER Work Phone: [facility] 11-02-2024 12:55-0400 Body mass index (BMI) [Ratio] 22.09 kg/m2 Lindsey Montse ART SALES CONSULTANT.CABLE INSTALLER REPAIRER HELPER Work Phone: [facility] 11-02-2024 12:55-0400 Body weight 54.8 kg Lindsey Montse ART SALES CONSULTANT.CABLE INSTALLER REPAIRER HELPER Work Phone: [facility] 11-02-2024 12:55-0400 Diastolic blood pressure 75 mm[Hg] Lindsey Montse ART SALES CONSULTANT.CABLE INSTALLER REPAIRER HELPER Work Phone: [facility] 11-02-2024 12:55-0400 Heart rate 92 /min Lindsey Montse ART SALES CONSULTANT.CABLE INSTALLER REPAIRER HELPER Work Phone: [facility] 11-02-2024 12:55-0400 SaO2% (BldA) [Mass fraction] 99 % Lindsey Montse ART SALES CONSULTANT.CABLE INSTALLER REPAIRER HELPER Work Phone: [facility] 11-02-2024 12:55-0400 Systolic blood pressure 125 mm[Hg] Lindsey Montse ART SALES CONSULTANT.CABLE INSTALLER REPAIRER HELPER Work Phone: [facility] 10-28-2024 16:50-0400 Diastolic blood pressure 83 mm[Hg] [facility] 10-28-2024 16:50-0400 Heart rate 81 /min [facility] 10-28-2024 16:50-0400 Respiratory rate 20 /min [facility] 10-28-2024 16:50-0400 SaO2% (BldA) [Mass fraction] 99 % [facility] 10-28-2024 16:50-0400 Systolic blood pressure 135 mm[Hg] [facility] 10-28-2024 14:33-0400 Body height 157.48 cm [facility] 10-28-2024 14:33-0400 Body temperature 98.3 [degF] [facility] 10-28-2024 14:33-0400 Body weight 54.3 kg [facility] 10-19-2024 22:50-0400 Body temperature 97.9 [degF] [facility] 10-19-2024 22:50-0400 Diastolic blood pressure 74 mm[Hg] [facility] 10-19-2024 22:50-0400 Heart rate 81 /min [facility] 10-19-2024 22:50-0400 Respiratory rate 18 /min [facility] 10-19-2024 22:50-0400 SaO2% (BldA) [Mass fraction] 99 % [facility] 10-19-2024 22:50-0400 Systolic blood pressure 140 mm[Hg] [facility] 10-19-2024 16:47-0400 Body height 157.48 cm [facility] 10-19-2024 16:47-0400 Body weight 55.2 kg [facility] 09-27-2024 14:00-0400 Diastolic blood pressure 71 mm[Hg] Tasha Zamora MD Work Phone: [facility] 09-27-2024 14:00-0400 Heart rate 93 /min Tasha Zamora MD Work Phone: [facility] 09-27-2024 14:00-0400 Respiratory rate 17 /min Tasha Zamora MD Work Phone: [facility] [employer] [facility] 09-27-2024 14:00-0400 SaO2% (BldA) [Mass fraction] 97 % Tasha Zamora MD Work Phone: [employer] 09-27-2024 14:00-0400 Systolic blood pressure 129 mm[Hg] Tasha Zamora MD Work Phone: [employer] 09-27-2024 10:48-0400 Body temperature 99 [degF] Tasha Zamora MD Work Phone: [employer] 09-20-2024 21:30-0400 Diastolic blood pressure 80 mm[Hg] Tasha Zamora MD Work Phone: [employer] 09-20-2024 21:30-0400 Heart rate 77 /min Tasha Zamora MD Work Phone: [employer] 09-20-2024 21:30-0400 Respiratory rate 18 /min Tasha Zamora MD Work Phone: [employer] 09-20-2024 21:30-0400 SaO2% (BldA) [Mass fraction] 97 % Tasha Zamora MD Work Phone: [employer] 09-20-2024 21:30-0400 Systolic blood pressure 119 mm[Hg] Tasha Zamora MD Work Phone: [employer] 09-20-2024 18:13-0400 Body height 157.5 cm Tasha Zamora MD Work Phone: [employer] 09-20-2024 18:13-0400 Body mass index (BMI) [Ratio] 22.86 kg/m2 Tasha Zamora MD Work Phone: [employer] 09-20-2024 18:13-0400 Body temperature 98.1 [degF] Tasha Zamora MD Work Phone: [employer] 09-20-2024 18:13-0400 Body weight 56.7 kg Tasha Zamora MD Work Phone: [facility] [facility] [employer] 08-08-2024 19:32-0400 Diastolic blood pressure 62 mm[Hg] [facility] [employer] 08-08-2024 19:32-0400 SaO2% (BldA) [Mass fraction] 98 % [facility] [employer] 08-08-2024 19:32-0400 Systolic blood pressure 135 mm[Hg] [facility] [employer] 08-08-2024 17:51-0400 Body height 157.5 cm [facility] [employer] 08-08-2024 17:51-0400 Body mass index (BMI) [Ratio] 22.86 kg/m2 [facility] [employer] 08-08-2024 17:51-0400 Body temperature 98.29 [degF] [facility] [employer] 08-08-2024 17:51-0400 Body weight 56.7 kg [facility] [employer] 08-08-2024 17:51-0400 Heart rate 86 /min [facility] [employer] 08-08-2024 17:51-0400 Respiratory rate 20 /min [facility] [employer] 04-07-2024 16:14-0500 Heart rate 93 /min Peter Escalera MD Work Phone: [facility] [employer] 04-07-2024 16:14-0500 SaO2% (BldA) [Mass fraction] 100 % Peter Escalera MD Work Phone: [facility] [employer] 04-07-2024 13:10-0500 Body height 157.5 cm Peter Escalera MD Work Phone: [facility] [employer] 04-07-2024 13:10-0500 Body mass index (BMI) [Ratio] 22.86 kg/m2 Peter Escalera MD Work Phone: [facility] [employer] 04-07-2024 13:10-0500 Body temperature 97.9 [degF] Peter Escalera MD Work Phone: [facility] [employer] 04-07-2024 13:10-0500 Body weight 56.7 kg Peter Escalera MD Work Phone: [facility] 04-07-2024 13:10-0500 Diastolic blood pressure 88 mm[Hg] Peter Escalera MD Work Phone: [facility] 04-07-2024 13:10-0500 Respiratory rate 16 /min Peter Escalera MD Work Phone: [facility] 04-07-2024 13:10-0500 Systolic blood pressure 139 mm[Hg] Peter Escalera MD Work Phone: [facility] 01-19-2024 11:30-0500 Diastolic blood pressure 63 mm[Hg] Sabrina Dee MD, MPH Work Phone: [facility] 01-19-2024 11:30-0500 Heart rate 73 /min Sabrina Dee MD, MPH Work Phone: [facility] 01-19-2024 11:30-0500 Respiratory rate 18 /min Sabrina Dee MD, MPH Work Phone: [facility] 01-19-2024 11:30-0500 SaO2% (BldA) [Mass fraction] 99 % Sabrina Dee MD, MPH Work Phone: [facility] 01-19-2024 11:30-0500 Systolic blood pressure 120 mm[Hg] Sabrina Dee MD, MPH Work Phone: [facility] 01-19-2024 09:54-0500 Body temperature 98.01 [degF] Sabrina Dee MD, MPH Work Phone: [facility] 01-07-2024 16:13-0400 Diastolic blood pressure 41 mm[Hg] [facility] 01-07-2024 16:13-0400 Heart rate 82 /min [facility] 01-07-2024 16:13-0400 Respiratory rate 15 /min [facility] 01-07-2024 16:13-0400 Systolic blood pressure 127 mm[Hg] [facility] 01-07-2024 14:14-0400 Body height 157.5 cm [facility] 01-07-2024 14:14-0400 Body mass index (BMI) [Ratio] 21.95 kg/m2 [facility] 01-07-2024 14:14-0400 Body temperature 98.1 [degF] [facility] 01-07-2024 14:14-0400 Body weight 54.43 kg [facility] 01-07-2024 14:14-0400 SaO2% (BldA) [Mass fraction] 99 % [facility] 09-29-2023 21:39-0400 Heart rate 102 /min [facility] 09-29-2023 21:29-0400 SaO2% (BldA) [Mass fraction] 96 % [facility] 09-29-2023 20:32-0400 Diastolic blood pressure 94 mm[Hg] [facility] 09-29-2023 20:32-0400 Systolic blood pressure 124 mm[Hg] [facility] 09-29-2023 18:57-0400 Body height 157.5 cm [facility] 09-29-2023 18:57-0400 Body mass index (BMI) [Ratio] 22.86 kg/m2 [facility] 09-29-2023 18:57-0400 Body temperature 98.1 [degF] [facility] 09-29-2023 18:57-0400 Body weight 56.7 kg [facility] 09-29-2023 18:57-0400 Respiratory rate 18 /min [facility] 09-08-2023 09:00-0400 Diastolic blood pressure 54 mm[Hg] Sabrina Dee MD, MPH Work Phone: [facility] 09-08-2023 09:00-0400 Heart rate 83 /min Sabrina Dee MD, MPH Work Phone: [facility] 09-08-2023 09:00-0400 Respiratory rate 13 /min Sabrina Dee MD, MPH Work Phone: [facility] 09-08-2023 09:00-0400 SaO2% (BldA) [Mass fraction] 95 % Sabrina Dee MD, MPH Work Phone: [facility] 09-08-2023 09:00-0400 Systolic blood pressure 94 mm[Hg] Sabrina Dee MD, MPH Work Phone: [facility] 09-08-2023 08:04-0400 Body temperature 97.7 [degF] Sabrina Dee MD, MPH Work Phone: [facility] 09-08-2023 06:43-0400 Body height 157.5 cm Sabrina Dee MD, MPH Work Phone: [facility] 05-11-2023 09:01-0500 Body height 157.5 cm Sabrina Dee MD, MPH Work Phone: [facility] 05-11-2023 09:01-0500 Body mass index (BMI) [Ratio] 21 kg/m2 Sabrina Dee MD, MPH Work Phone: [facility] 05-11-2023 09:01-0500 Body weight 52.07 kg Sabrina Dee MD, MPH Work Phone: [facility] 05-11-2023 09:01-0500 Diastolic blood pressure 48 mm[Hg] Sabrina Dee MD, MPH Work Phone: [facility] 05-11-2023 09:01-0500 Heart rate 107 /min Sabrina Dee MD, MPH Work Phone: [facility] 05-11-2023 09:01-0500 SaO2% (BldA) [Mass fraction] 97 % Sabrina Dee MD, MPH Work Phone: [facility] 05-11-2023 09:01-0500 Systolic blood pressure 110 mm[Hg] Sabrina Dee MD, MPH Work Phone: [facility] 04-18-2023 17:39-0500 Diastolic blood pressure 79 mm[Hg] [facility] 04-18-2023 17:39-0500 Heart rate 114 /min [facility] 04-18-2023 17:39-0500 Respiratory rate 16 /min [facility] 04-18-2023 17:39-0500 SaO2% (BldA) [Mass fraction] 98 % [facility] 04-18-2023 17:39-0500 Systolic blood pressure 168 mm[Hg] [facility] 04-18-2023 15:29-0500 Body height 157.48 cm [facility] 04-18-2023 15:29-0500 Body temperature 99.3 [degF] [facility] 04-18-2023 15:29-0500 Body weight 51.25 kg [facility] 04-11-2023 23:50-0500 Diastolic blood pressure 82 mm[Hg] [facility] 04-11-2023 23:50-0500 Heart rate 106 /min [facility] 04-11-2023 23:50-0500 SaO2% (BldA) [Mass fraction] 97 % [facility] 04-11-2023 23:50-0500 Systolic blood pressure 151 mm[Hg] [facility] 04-11-2023 22:25-0500 Respiratory rate 18 /min [facility] 04-11-2023 21:20-0500 Body height 157.48 cm [facility] 04-11-2023 21:20-0500 Body temperature 97.2 [degF] [facility] 04-11-2023 21:20-0500 Body weight 52 kg [facility] 04-02-2023 19:20-0500 Diastolic blood pressure 74 mm[Hg] [facility] 04-02-2023 19:20-0500 Heart rate 91 /min [facility] 04-02-2023 19:20-0500 Respiratory rate 18 /min [facility] 04-02-2023 19:20-0500 SaO2% (BldA) [Mass fraction] 96 % [facility] 04-02-2023 19:20-0500 Systolic blood pressure 137 mm[Hg] [facility] 04-02-2023 13:45-0500 Body height 157.48 cm [facility] 04-02-2023 13:45-0500 Body temperature 97.6 [degF] [facility] 04-02-2023 13:45-0500 Body weight 54 kg [facility] 11-09-2022 16:30-0400 Diastolic blood pressure 81 mm[Hg] [facility] 11-09-2022 16:30-0400 Heart rate 78 /min [facility] 11-09-2022 16:30-0400 Respiratory rate 18 /min [facility] 11-09-2022 16:30-0400 SaO2% (BldA) [Mass fraction] 99 % [facility] 11-09-2022 16:30-0400 Systolic blood pressure 141 mm[Hg] [facility] 11-09-2022 13:47-0400 Body height 160.02 cm [facility] 11-09-2022 13:47-0400 Body temperature 98.2 [degF] [facility] 11-09-2022 13:47-0400 Body weight 54.2 kg [facility] 08-12-2022 13:15-0400 Diastolic blood pressure 68 mm[Hg] Sabrina Dee MD, MPH Work Phone: [facility] 08-12-2022 13:15-0400 Heart rate 67 /min Sabrina Dee MD, MPH Work Phone: [facility] 08-12-2022 13:15-0400 Respiratory rate 22 /min Sabrina Dee MD, MPH Work Phone: [facility] 08-12-2022 13:15-0400 SaO2% (BldA) [Mass fraction] 99 % Sabrina Dee MD, MPH Work Phone: 3(440)509-909702 [place] [address] 08-12-2022 13:15-0400 Systolic blood pressure 142 mm[Hg] Sabrina Dee MD, MPH Work Phone: 9(970)130-762502 [place] [address] 08-12-2022 11:45-0400 Body temperature 97.81 [degF] Sabrina Dee MD, MPH Work Phone: 9(887)676-996402 [place] [address] 08-12-2022 10:34-0400 Body height 157.5 cm Sabrina Dee MD, MPH Work Phone: 8(015)006-905902 [place] [address] 06-16-2022 10:52-0400 Body mass index (BMI) [Ratio] 23.41 kg/m2 Sabrina Dee MD, MPH Work Phone: 2(079)804-161102 [place] [address] 06-16-2022 10:52-0400 Body weight 58.06 kg Sabrina Dee MD, MPH Work Phone: 5(687)593-586202 [place] [address] 06-16-2022 10:52-0400 Diastolic blood pressure 68 mm[Hg] Sabrina Dee MD, MPH Work Phone: 2(915)362-331679 [address] 06-16-2022 10:52-0400 Heart rate 83 /min Sabrina Dee MD, MPH Work Phone: 4(878)455-636202 [place] [address] 06-16-2022 10:52-0400 SaO2% (BldA) [Mass fraction] 98 % Sabrina Dee MD, MPH Work Phone: 5(563)346-236802 [place] [address] 06-16-2022 10:52-0400 Systolic blood pressure 122 mm[Hg] Sabrina Dee MD, MPH Work Phone: [facility] 03-22-2022 16:51-0500 Diastolic blood pressure 61 mm[Hg] [facility] 03-22-2022 16:51-0500 Heart rate 98 /min [facility] 03-22-2022 16:51-0500 Respiratory rate 20 /min [facility] 03-22-2022 16:51-0500 SaO2% (BldA) [Mass fraction] 98 % [facility] 03-22-2022 16:51-0500 Systolic blood pressure 149 mm[Hg] [facility] 03-22-2022 14:59-0500 Body height 157.48 cm [facility] 03-22-2022 14:59-0500 Body temperature 97.9 [degF] [facility] 03-22-2022 14:59-0500 Body weight 56 kg [facility] 12-16-2021 11:53-0400 Body height 157.5 cm Sabrina Dee MD, MPH Work Phone: [facility] 12-16-2021 11:53-0400 Body mass index (BMI) [Ratio] 22.5 kg/m2 Sabrina Dee MD, MPH Work Phone: [facility] 12-16-2021 11:53-0400 Body weight 55.79 kg Sabrina Dee MD, MPH Work Phone: [facility] 12-16-2021 11:53-0400 Diastolic blood pressure 72 mm[Hg] Sabrina Dee MD, MPH Work Phone: [facility] [facility] 12-16-2021 11:53-0400 Heart rate 80 /min Sabrina Dee MD, MPH Work Phone: [facility] 12-16-2021 11:53-0400 SaO2% (BldA) [Mass fraction] 98 % Sabrina Dee MD, MPH Work Phone: [facility] 12-16-2021 11:53-0400 Systolic blood pressure 118 mm[Hg] Sabrina Dee MD, MPH Work Phone: [facility] 10-09-2021 20:00-0400 Body temperature 98.3 [degF] [facility] 10-09-2021 20:00-0400 Diastolic blood pressure 68 mm[Hg] [facility] 10-09-2021 20:00-0400 Heart rate 86 /min [facility] 10-09-2021 20:00-0400 Respiratory rate 20 /min [facility] 10-09-2021 20:00-0400 SaO2% (BldA) [Mass fraction] 100 % [facility] 10-09-2021 20:00-0400 Systolic blood pressure 110 mm[Hg] [facility] 10-09-2021 14:19-0400 Body height 157.48 cm [facility] 10-09-2021 14:19-0400 Body weight 56.69 kg [facility] 10-04-2021 19:00-0400 Diastolic blood pressure 66 mm[Hg] [facility] 10-04-2021 19:00-0400 Heart rate 72 /min [facility] 10-04-2021 19:00-0400 Respiratory rate 16 /min [facility] 10-04-2021 19:00-0400 SaO2% (BldA) [Mass fraction] 96 % [facility] 10-04-2021 19:00-0400 Systolic blood pressure 110 mm[Hg] [facility] 10-04-2021 15:16-0400 Body temperature 97.9 [degF] [facility] 10-04-2021 15:15-0400 Body height 157.48 cm [facility] 10-04-2021 15:15-0400 Body weight 54.5 kg [facility] 09-25-2021 19:58-0400 Heart rate 82 /min [facility] 09-25-2021 18:04-0400 Body temperature 98.1 [degF] [facility] 09-25-2021 18:00-0400 Body height 157.48 cm [facility] 09-25-2021 18:00-0400 Body weight 55.5 kg [facility] 09-25-2021 18:00-0400 Diastolic blood pressure 107 mm[Hg] [facility] 09-25-2021 18:00-0400 Respiratory rate 18 /min [facility] 09-25-2021 18:00-0400 SaO2% (BldA) [Mass fraction] 98 % [facility] 09-25-2021 18:00-0400 Systolic blood pressure 141 mm[Hg] [facility] 08-11-2021 18:12-0400 Heart rate 86 /min [facility] 08-11-2021 18:00-0400 Diastolic blood pressure 69 mm[Hg] [facility] 08-11-2021 18:00-0400 Respiratory rate 20 /min [facility] 08-11-2021 18:00-0400 SaO2% (BldA) [Mass fraction] 98 % [facility] 08-11-2021 18:00-0400 Systolic blood pressure 114 mm[Hg] [facility] 08-11-2021 16:06-0400 Body height 170.18 cm [facility] 08-11-2021 16:06-0400 Body mass index (BMI) [Ratio] 19.6 kg/m2 [facility] 08-11-2021 16:06-0400 Body temperature 97.9 [degF] [facility] 08-11-2021 16:06-0400 Body weight 57 kg [facility] 03-19-2021 14:30-0500 Body height 157.48 cm Marya Almonte Other [employer] Other 03-19-2021 14:30-0500 Body mass index (BMI) [Ratio] 24.69 kg/m2 Marya Ginty Other [employer] Other 03-19-2021 14:30-0500 Body temperature 96 [degF] Marya Ginty Other [employer] Other 03-19-2021 14:30-0500 Body weight 61.24 kg Marya Ginty Other [employer] Other 03-19-2021 14:30-0500 Respiratory rate 63 /min Marya Ginty Other [employer] Other 03-19-2021 14:30-0500 SaO2% (BldA) [Mass fraction] 97 % Marya Ginty Other [employer] Other 03-26-2020 21:05-0500 Pulse Oximetry 100 % [facility] [place] 03-26-2020 21:01-0500 BP Diastolic 68 mm[Hg] [facility] [place] 03-26-2020 21:01-0500 BP Systolic 152 mm[Hg] [facility] [place] 03-26-2020 17:32-0500 BMI (Body Mass Index) 22.86 kg/m2 [facility] 03-26-2020 17:32-0500 Body weight 56.7 kg [facility] [place] 03-26-2020 17:32-0500 Height 157.5 cm [facility] [place] 03-26-2020 17:32-0500 Pulse (Heart Rate) 90 /min [facility] [place] 03-26-2020 17:32-0500 Respiratory Rate 18 /min [facility] [place] 03-26-2020 12:39-0500 Body Temperature 98.71 [degF] [facility] [place] 08-25-2019 08:30-0400 Body Temperature 98.01 [degF] Rajeev Cantor [facility], [place] 08-25-2019 08:30-0400 BP Diastolic 75 mm[Hg] Rajeev Sakshi [place], [place] 08-25-2019 08:30-0400 BP Systolic 117 mm[Hg] Rajeev Cantor [place] 08-25-2019 08:30-0400 Pulse (Heart Rate) 84 /min Rajeev [place], [place] 08-25-2019 08:30-0400 Pulse Oximetry 97 % Rajeev [facility] , [place] 08-25-2019 08:30-0400 Respiratory Rate 16 /min Rajeev Sakshi [place], [place] 08-25-2019 05:30-0400 BMI (Body Mass Index) 25.88 kg/m2 Rajeev Sakshi [place], [place] 08-25-2019 05:30-0400 Body weight 64.18 kg Rajeev [place] 08-22-2019 16:00-0400 Height 157.5 cm Rajeev Sakshi [place] 03-04-2018 13:09-0500 BP Diastolic 69 mm[Hg] [facility] 03-04-2018 13:09-0500 BP Systolic 108 mm[Hg] [facility] 03-04-2018 13:09-0500 Pulse (Heart Rate) 79 /min [facility] 03-04-2018 13:09-0500 Pulse Oximetry 99 % [facility] 03-04-2018 13:09-0500 Respiratory Rate 16 /min [facility] 03-04-2018 11:01-0500 BMI (Body Mass Index) 22.86 kg/m2 [facility] 03-04-2018 11:01-0500 Body Temperature 98.6 [degF] [facility] 03-04-2018 11:01-0500 Height 157.5 cm [facility] 03-04-2018 11:01-0500 Weight 56.7 kg [facility] 08-24-2017 20:58-0400 BP Diastolic 64 mm[Hg] Sarah Walton [facility] 08-24-2017 20:58-0400 BP Systolic 126 mm[Hg] Sarah Walton [facility] 08-24-2017 20:58-0400 Pulse (Heart Rate) 67 /min Sarah Walton [facility] 08-24-2017 20:58-0400 Pulse Oximetry 98 % Sarah Walton [facility] 08-24-2017 20:58-0400 Respiratory Rate 18 /min Sarah Walton [facility] 08-24-2017 13:41-0400 BMI (Body Mass Index) 21.58 kg/m2 Sarah Walton [facility] 08-24-2017 13:41-0400 Body Temperature 98.29 [degF] Sarah Walton [facility] 08-24-2017 13:41-0400 Height 157.5 cm Sarah [facility] 08-24-2017 13:41-0400 Weight 53.52 kg Sarah Walton [facility] 06-09-2017 09:32-0400 BP Diastolic 73 mm[Hg] [facility] 06-09-2017 09:32-0400 BP Systolic 106 mm[Hg] [facility] 06-09-2017 09:32-0400 Pulse (Heart Rate) 86 /min [facility] 06-09-2017 09:32-0400 Pulse Oximetry 99 % [facility] 06-09-2017 09:32-0400 Respiratory Rate 16 /min [facility] 06-09-2017 07:20-0400 BMI (Body Mass Index) 21.87 kg/m2 [facility] 06-09-2017 07:20-0400 Body Temperature 98.4 [degF] [facility] 06-09-2017 07:20-0400 Height 157.5 cm [facility] 06-09-2017 07:20-0400 Weight 54.23 kg [facility] 05-15-2017 08:11-0500 Body Temperature 98.01 [degF] David Gibson [facility] 05-15-2017 08:11-0500 BP Diastolic 69 mm[Hg] David Gibson [facility] 05-15-2017 08:11-0500 BP Systolic 116 mm[Hg] David Gibson [facility] 05-15-2017 08:11-0500 Pulse (Heart Rate) 76 /min David Gibson [facility] 05-15-2017 08:11-0500 Pulse Oximetry 95 % David Gibson [facility] 05-15-2017 08:11-0500 Respiratory Rate 15 /min David Gibson [facility] 05-14-2017 12:58-0500 BMI (Body Mass Index) 21.95 kg/m2 David Gibson [facility] 05-14-2017 12:58-0500 Height 157.5 cm David Gibson [facility] 05-14-2017 12:58-0500 Weight 54.43 kg David Gibson [facility] Encounters Encounter Date Encounter Type Care Provider Facility Start: 12-13-2024 End: 12-13-2024 ambulatory LINDSEY WILLARD Facility:[facility] Start: 12-09-2024 End: 12-11-2024 ambulatory CYNTHIA GALINDO Facility:[facility] Start: 12-08-2024 End: 12-08-2024 Emergency department patient visit [facility] Start: 11-25-2024 End: 11-29-2024 Evaluation and management of inpatient Geno Martin [facility] Start: 11-24-2024 Emergency department patient visit Loki Ernandez Facility[facility] Start: 11-17-2024 ambulatory CYNTHIA GALINDO Faci lity:[facility] Start: 11-17-2024 End: 11-17-2024 Subsequent hospital visit by physician Josse Romo MD Work Phone: Gastroenterology Comment on above: Chronic pancreatitis , unspecified pancreatitis type (HCC) [K86.1] Start: 11-06-2024 End: 11-09-2024 Evaluation and management of inpatient Raji Gilliam MD Work Phone: [facility] Comment on above: Acute pancreatitis, unspecified complication status, unspecified pancreatitis type (Primary Dx) Start: 11-02-2024 End: 11-03-2024 Office outpatient visit 15 minutes Lindsey Willard APRN.CNP Work Phone: Gastroenterology Comment on above: Chronic pancreatitis , unspecified pancreatitis type (HCC) (Primary Dx); Exocrine pancreatic insufficiency (HCC); Epigastric pain; Loose stools; Heartburn; Tobacco use Start: 11-02-2024 End: 11-03-2024 ambulatory CYNTHIA GALINDO Facility:[facility] Start: 10-28-2024 End: 10-28-2024 Emergency department patient visit -Emergency Room Work Phone: Start: 10-26-2024 End: 10-26-2024 Emergency department patient visit [facility] Start: 10-24-2024 End: 10-24-2024 Emergency department patient visit Darrel Carissa Facility[place] Start: 10-19-2024 End: 10-19-2024 Emergency department patient visit -Emergency Room Work Phone: Start: 10-11-2024 End: 10-11-2024 Emergency department patient visit [facility] Start: 10-09-2024 End: 10-09-2024 Emergency department patient visit Ish Stokes Facility[place] Start: 10-03-2024 End: 10-03-2024 Emergency department patient visit Darrel Ferrer Facility:[facility] Start: 09-27-2024 End: 09-27-2024 Emergency department patient visit Tasha Zamora MD Work Phone: [facility] Emergency [facility] Comment on above: Abdominal pain, epig astric (Primary Dx); Nausea and vomiting, unspecified vomiting type Start: 09-20-2024 End: 09-20-2024 Emergency department patient visit Tasha Zamora MD Work Phone: [facility] Comment on above: Other chronic pancre atitis (HCC) (Primary Dx) Start: 09-18-2024 End: 09-19-2024 Emergency department patient visit [facility] Start: 09-05-2024 End: 09-05-2024 Emergency department patient visit [facility] Start: 08-10-2024 End: 08-10-2024 Emergency department patient visit [facility] Start: 08-08-2024 End: 08-08-2024 Emergency department patient visit [facility] Emergency Department Comment on above: Abdominal pain, epig astric (Primary Dx) Start: 07-20-2024 End: 07-21-2024 Emergency department patient visit [facility] Start: 06-27-2024 End: 06-27-2024 Emergency department patient visit [facility] Start: 06-15-2024 End: 06-15-2024 Emergency department patient visit [facility] Start: 05-31-2024 End: 05-31-2024 Emergency department patient visit [facility] Start: 04-07-2024 End: 04-07-2024 Emergency department patient visit Peter Escalera MD Work Phone: [facility] Emergency Department Comment on above: Acute pancreatitis w ithout infection or necrosis, unspecified pancreatitis type (Primary Dx); Acute recurrent pancreatitis Start: 03-18-2024 End: 03-18-2024 Emergency department patient visit [facility] Start: 01-19-2024 ambulatory SABRINA Ferreira [facility] Start: 01-19-2024 End: 01-19-2024 Subsequent hospital visit by physician Sabrina Dee MD, MPH Work Phone: [facility] Start: 01-14-2024 End: 01-14-2024 Emergency department patient visit [facility] Start: 01-07-2024 End: 01-07-2024 Emergency department patient visit [facility] ED Comment on above: Acute on chronic see creatitis (HCC) (Primary Dx); Abdominal pain, epigastric Start: 12-29-2023 End: 12-29-2023 Emergency department patient visit [facility] Start: 09-29-2023 End: 09-29-2023 Emergency department patient visit [facility] ED Comment on above: Hypokalemia (Primary Dx); Acute recurrent pancreatitis Start: 09-08-2023 End: 09-08-2023 Subsequent hospital visit by physician Sabrina Dee MD, MPH Work Phone: [facility] Start: 09-08-2023 ambulatory SABRINA Ferreira cili:[facility] Start: 05-22-2023 Telephone encounter Julia Portillo [facility] Start: 05-11-2023 Chart abstracting Scanning Pro vider External [facility] Start: 05-11-2023 End: 05-11-2023 Office outpatient visit 40 minutes Sabrina Dee MD, MPH Work Phone: [facility] [place] Comment on above: 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 pancreatitis (Primary Dx); Encounter for screening for malignant neoplasm of colon; Other osteoporosis without current pathological fracture; Epigastric pain; Smoking; Gastroesophageal reflux disease without esophagitis Start: 05-11-2023 ambulatory SABRINA DEE Fa cility:[facility] Start: 04-18-2023 End: 04-18-2023 Emergency department patient visit [facility] Work Phone: Start: 04-16-2023 Telephone encounter Monal[facility] Start: 04-11-2023 End: 04-12-2023 Emergency department patient visit [facility] Work Phone: Start: 04-02-2023 End: 04-02-2023 Emergency department patient visit [facility] Work Phone: Start: 11-09-2022 End: 11-09-2022 Emergency department patient visit [facility] Work Phone: Start: 08-12-2022 End: 08-12-2022 Subsequent hospital visit by physician Sabrina Dee MD, MPH Work Phone: [facility] Start: 06-16-2022 End: 06-16-2022 Office outpatient visit 40 minutes Sabrina Dee MD, MPH Work Phone: [facility] [place] Comment on above: Osteoporosis without current pathological fracture, unspecified osteoporosis type (Primary Dx); Alcohol-induced chronic pancreatitis Start: 06-13-2022 End: 06-13-2022 ambulatory ARIC JANUSZ . Facility: Start: 03-29-2022 End: 03-29-2022 ambulatory ELENITA ROLLINS . Facility:[facility] Start: 03-22-2022 End: 03-22-2022 Emergency department patient visit [facility] Work Phone: Start: 03-19-2022 End: 03-19-2022 ambulatory MONIK BURNETTP . Facility:[facility] Start: 01-28-2022 End: 01-28-2022 Subsequent hospital visit by physician Sabrina Dee MD, MPH Work Phone: [facility] Start: 01-27-2022 End: 01-27-2022 Subsequent hospital visit by physician Sabrina Dee MD, MPH Work Phone: [facility] Comment on above: Arrived Start: 01-15-2022 End: 01-15-[address] CRUZITO KITCHEN . Facility:[facility] Start: 12-16-2021 End: 12-16-2021 Office outpatient visit 25 minutes Sabrina Dee MD, MPH Work Phone: [facility] [place] Comment on above: Recurrent acute panc reatitis (Primary Dx); History of smoking 25-50 pack years; Alcohol-induced chronic pancreatitis; Epigastric pain; Encounter for screening colonoscopy Start: 12-13-2021 End: 12-14-2021 ambulatory NICK COY Facility:[facility] Start: 12-05-2021 End: 12-05-[address] RAJEEV KELLOGG Facility:[facility] Start: 10-11-2021 End: 10-12-[address] RAJEEV KELLOGG Facility:[facility] Start: 10-04-2021 End: 10-04-2021 Emergency department patient visit [facility] Start: 09-30-2021 End: 09-30-2021 ambulatory NAT MAXWELL . Facility:[facility] Start: 09-25-2021 End: 09-25-2021 Emergency department patient visit [facility] Start: 09-17-2021 End: 09-17-[address] RAJEEV KELLOGG Facility:[facility] Start: 08-26-2021 End: 08-26-2021 ambulatory NICK COY Facility:[facility] Start: 08-22-2021 End: 08-22-[address] TRI HANSON Facility:[facility] Start: 08-13-2021 End: 08-13-2021 ambulatory AGUSTIN MADRIGAL Facility:[facility] Start: 08-11-2021 End: 08-11-2021 Emergency department patient visit [facility] Start: 07-31-2021 End: 07-31-2021 ambulatory YANNI FRASER Facility:[facility] Start: 07-19-2021 End: 07-19-2021 ambulatory LYNNE PERDOMO Facility:[facility] Start: 03-19-2021 End: 03-19-2021 ambulatory Marya Gillana Other [employer] Other Start: 03-19-2021 Office outpatient visit 15 minutes Marya Almonte [facility] Start: 05-22-2020 End: 05-22-2020 Orders Only Izabela Grant Work Phone: [facility] Start: 03-26-2020 End: 03-26-2020 Emergency department patient visit [facility] ED Comment on above: Acute biliary pancre atitis, unspecified complication status (Primary Dx) Start: 08-22-2019 End: 08-25-2019 Evaluation and management of inpatient Rajeev Cantor Work Phone: [facility] Comment on above: Acute pancreatitis, unspecified complication status, unspecified pancreatitis type (Primary Dx); Pain of upper abdomen Start: 03-08-2018 End: 03-09-2018 Evaluation and management of inpatient [facility] Start: 03-04-2018 End: 03-04-2018 Patient encounter procedure [facility] Start: 03-04-2018 End: 03-04-2018 Emergency department patient visit Keerthi Nguyen Work Phone: [facility] Emergency Department Comment on above: Acute on chronic see creatitis (HCC) (Primary Dx) Start: 08-24-2017 End: 08-24-2017 Emergency department patient visit [facility] Start: 08-24-2017 End: 08-24-2017 Emergency department patient visit Sarah Walton Work Phone: [facility] Emergency Department Start: 06-09-2017 End: 06-09-2017 Emergency department patient visit ALEXANDER [facility] Start: 06-09-2017 End: 06-09-2017 Emergency department patient visit Mario Mendes Work Phone: [facility] Emergency Department Start: 05-14-2017 End: 05-15-2017 Patient encounter procedure ALEXANDER NICHOLS [facility] Start: 05-14-2017 End: 05-15-2017 Emergency department patient visit David Gibson Work Phone: [facility] Medical Observation Procedures Date Procedure Procedure Detail Performing Clinician Start: 11-17-2024 Esophagoscp rig transoral hypopharynx crv yun Willard ART SALES CONSULTANT.CABLE INSTALLER REPAIRER HELPER Work Phone: Start: 11-09-2024 Assay of lipase Raji Gilliam MD Work Phone: Start: 11-08-2024 Mri abdomen w/o & w/contrast material Carley Anne ART SALES CONSULTANT - CABLE INSTALLER REPAIRER HELPER Work Phone: Start: 11-08-2024 Assay of lipase [...] panel - Serum or Plasma Lindsey Willard APRN.CABLE INSTALLER REPAIRER HELPER Work Phone: Start: 03-04-2018 End: 03-04-2018 Urinalysis [...] Keerthivane Nguyen Start: 10-10-2011 Colonoscopy Lindsey Willard APRN.CABLE INSTALLER REPAIRER HELPER Work Phone: Start: 08-22-2011 History of cholecystectomy S/P cholecystectomy Lindsey khan APRN.CABLE INSTALLER REPAIRER HELPER Work Phone: Plan of Treatment Date Care Activity Detail Author Start: 11-10-2027 Diabetes Screening Diabetes Screening [facility] Start: 10-12-2027 Diabetes Screening Diabetes Screening [facility] Start: 12-05-2024 End: 12-05-2024 Follow-up encounter 12/05/2024 1:30 PM EDT [facility] [address] [address] Lindsey Willard APRN.CABLE INSTALLER REPAIRER HELPER [address] [place] [address] follow up Gastroenterology Comment on above: follow up Start: 11-17-2024 End: 11-17-2024 Patient encounter procedure 11/17/2024 3:30 PM EDT Appointment Gastroenterology [address] [address] Josse Romo MD [address] [place] [address] Chronic pancreatitis, unspecified pancreatitis type (HCC) [K86.1] Gastroenterology Comment on above: Chronic pancreatitis, unspecified pancre atitis type (HCC) [K86.1] Start: 11-07-2024 COVID-19 Vaccine ( season) COVID-19 Vaccine () [employer] Start: 11-07-2024 Influenza vaccination Influenza Vaccine (#1) [facility] Start: 10-07-2024 Influenza vaccination [employer] Start: 04-11-2024 [facility] Start: 04-11-2024 [facility] Start: 02-22-2024 End: 02-22-2024 Patient encounter procedure 02/22/2024 9:30 AM EST Office Visit [facility] [address] [address] Sabrina Dee MD, MPH [address] [place] [id number] [facility] [place] Start: 11-08-2023 COVID-19 Vaccine () COVID-19 Vaccine () [employer] Start: 11-08-2023 COVID-19 Vaccine ( season) COVID-19 Vaccine ( season) [facility] Start: 11-08-2023 COVID-19 VACCINE ( season) COVID-19 VACCINE () [facility] Start: 11-08-2023 Influenza vaccination INFLUENZA VACCINE (#1) [facility] Start: 10-08-2023 Influenza vaccination Flu vaccine (#1) [facility] Start: 05-25-2023 End: 05-25-2023 Patient encounter procedure 05/25/2023 1:00 PM EDT Office Visit [facility] [address] [facility] [address] [place] [address] Orlando Al MD [address] [place] [address] [facility] Start: 05-19-2023 End: 05-10-2024 UPPER EUS UPPER EUS GI/Bronch Routine Alcohol-induced chronic pancreatitis Expected: 05/19/2023, Expires: 05/10/2024 [facility] Comment on above: Expected: 05/19/2023, Expires: Start: 05-11-2023 End: 05-10-2024 VITAMIN D (25-HYDROXY,TOTAL) VITAMIN D (25-HYDROXY,TOTAL) Lab Routine Other osteoporosis without current pathological fracture Expected: 05/11/2023, Expires: 05/10/2024 [facility] Comment on above: Expected: 05/11/2023, Expires: Start: 04-11-2023 Computed tomography of abdomen and pelvis with contrast CT abdomen pelvis w con [facility] Start: 04-11-2023 CT Abdomen and Pelvis W contrast IV [facility] Start: 03-16-2023 End: 03-16-2023 Patient encounter procedure 03/16/2023 Office Visit Gastroenterology Sabrina Dee MD, MPH [address] [place] [id number] [facility] [place] Start: 03-08-2023 Lipid [address] Lipid Screening [facility] Start: 11-07-2022 COVID-19 VACCINE ( season) COVID-19 VACCINE () [facility] Start: 11-07-2022 Influenza vaccination [facility] Start: 09-25-2022 Lipid panel LIPID SCREENING [facility] Start: 07-29-2022 End: 06-17-2023 UPPER EUS UPPER EUS GI/Bronch Routine Alcohol-induced chronic pancreatitis Expected: 07/29/2022, Expires: 06/17/2023 [facility] Comment on above: Expected: 07/29/2022, Expires: 4 Start: 07-28-2022 End: 01-28-2023 Screening colonoscopy SCREENING COLONOSCOPY GI/Bronch Routine Encounter for screening colonoscopy Expected: 07/28/2022, Expires: 01/28/2023 [facility] Comment on above: Expected: 07/28/2022, Expires: 3 Start: 07-28-2022 End: 07-28-2022 Patient encounter procedure 07/28/2022 Appointment Endoscopy Julia Tyler MD [address] [address] [facility] Endoscopy Department Start: 06-16-2022 End: 12-16-2022 Screening colonoscopy SCREENING COLONOSCOPY GI/Bronch Routine Encounter for screening colonoscopy Expected: 06/16/2022, Expires: 12/16/2022 [facility] Comment on above: Expected: 06/16/2022, Expires: 3 Start: 06-16-2022 End: 06-16-2022 Patient encounter procedure 06/16/2022 Office Visit Gastroenterology Sabrina Dee MD, MPH [address] [place] [address] General and Gastrointestinal Surgery [facility] [place] Start: 03-22-2022 Bacteria identified in Urine by Culture [facility] Start: 01-28-2022 End: 01-28-2022 Patient encounter procedure 01/28/2022 Appointment Endoscopy Sabrina Dee MD, MPH [address] [place] [address] [facility] Start: 01-28-2022 Subsequent hospital visit by physician 01/28/2022 Hospital Encounter Endoscopy Sabrina Dee MD, MPH [address] [place] [address] Arrived [facility] Comment on above: Arrived Start: 01-14-2022 End: 12-16-2022 UPPER EUS UPPER EUS GI/Bronch Routine Recurrent acute pancreatitis Expected: 01/14/2022, Expires: 12/16/2022 [facility] Comment on above: Expected: 01/14/2022, Expires: 3 Start: 12-16-2021 End: 12-16-2022 Bone density scan BONE DENSITY AXIAL (HIP, PELVIS, SPINE) Imaging Routine Recurrent acute pancreatitis History of smoking 25-50 pack years Expected: 12/16/2021, Expires: 12/16/2022 [facility] Comment on above: Expected: 12/16/2021, Expires: 3 Start: 11-07-2021 Influenza vaccination INFLUENZA VACCINE (#1) [facility] Start: 10-09-2021 CT of abdomen and pelvis without contrast CT abdomen pelvis wo con [facility] Start: 10-09-2021 End: 10-09-2021 Emergency department patient visit Departed Emergency [facility] Start: 11-13-2020 COVID-19 VACCINE (3 - Booster for Pfizer series) COVID-19 VACCINE (3 - Booster for Pfizer series) [facility] Start: 11-08-2019 Influenza vaccination [place] Start: 11-08-2019 Influenza vaccination given Sequential Influenza Vaccine (#1) [facility] Start: 06-21-2019 Administration of herpes zoster vaccine Zoster Vaccines (1 of 2) [facility] Start: 06-21-2019 Administration of varicella zoster vaccine Zoster (Shingles) Vaccine (1 of 2) [facility] Start: 06-21-2019 Pneumococcal 50+ years Vaccine (1 of 1 - PCV) Pneumococcal 50+ years Vaccine (1 of 1 - PCV) [facility] Start: 06-21-2019 Screening for malignant neoplasm of breast Breast cancer screen [place] Start: 06-21-2019 Screening for malignant neoplasm of colon [place] Start: 06-21-2019 Screening for malignant neoplasm of lung LUNG CANCER SCREENING [facility] Start: 06-21-2019 Shingles Vaccine (1 of 2) Shingles Vaccine (1 of 2) [facility] Start: 06-21-2019 Shingrix Vaccine (1 of 2) Shingrix Vaccine (1 of 2) [facility] Start: 06-21-2019 Zoster vaccine hzv live for subcutaneous use ZOSTER (SHINGLES) VACCINE (1 of 2) [facility] Start: 11-07-2017 Influenza vaccination [facility] Start: 11-07-2016 Influenza vaccination SEQUENTIAL INFLUENZA VACCINE (#1) [facility] Start: 12-10-2014 Screening for malignant neoplasm of cervix PAP SMEAR [facility] Start: 2014 Screening for malignant neoplasm of colon [facility] Start: 01-01-2014 Screening for malignant neoplasm of breast Breast cancer screen [facility] Start: 01-01-2013 Screening for malignant neoplasm of breast [facility] Start: 01-01-2013 Screening mammography Mammogram [facility] Start: 2009 Lipid panel [facility] Start: 1990 Screening for malignant neoplasm of cervix [facility] Start: 1988 DTaP,Tdap and Td Vaccines (1 - Tdap) DTaP,Tdap and Td Vaccines (1 - Tdap) [facility] Start: 1988 DTaP/Tdap/Td vaccine (1 - Tdap) DTaP/Tdap/Td vaccine (1 - Tdap) [facility] Start: 1988 Hepatitis B vaccination HEP B VACCINE (1 of 3 - 19+ 3-dose series) [facility] Start: 1988 Hepatitis B vaccine (1 of 3 - 19+ 3-dose series) Hepatitis B vaccine (1 of 3 - 19+ 3-dose series) [facility] Start: 1988 Pneumococcal 50+ years Vaccine (1 of 2 - PCV) Pneumococcal 50+ years Vaccine (1 of 2 - PCV) [facility] Start: 1988 Pneumococcal Vaccine: 50+ (1 of 2 - PCV) Pneumococcal Vaccine: 50+ (1 of 2 - PCV) [facility] Start: 1988 Third diphtheria, tetanus and acellular pertussis (DTaP) vaccination TDAP (ADULT) [facility] Start: 1988 Urine microalbumin profile DTaP,Tdap,Td Vaccine (1 - Tdap) [facility] Start: 06-21-1987 Anxiety Screening Anxiety Screening [facility] Start: 06-21-1987 Depression Screening Depression Screening [facility] Start: 06-21-1987 Hepatitis C antibody, confirmatory test Hepatitis C Screening [facility] Start: 06-21-1987 Hepatitis C screening [facility] Start: 06-21-1987 HIV screening HIV Screening [facility] Start: 06-21-1987 Tetanus vaccination TETANUS [facility] Start: 1985 COVID-19 Vaccine (1 of 2) COVID-19 Vaccine (1 of 2) [facility] Start: 1984 HIV screening [facility] Start: 1981 Depression Screen Depression Screen [facility] Start: 1981 Depression Screening [facility] Start: 06-21-1975 Pneumococcal 0-64 years Vaccine (1 of 1 - PPSV23) Pneumococcal 0-64 years Vaccine (1 of 1 - PPSV23) [place] Start: 06-21-1975 Pneumococcal 0-64 years Vaccine (1 of 2 - PCV) Pneumococcal 0-64 years Vaccine (1 of 2 - PCV) [facility] Start: 06-21-1975 PNEUMOCOCCAL VACCINE SERIES (1 - PCV) PNEUMOCOCCAL VACCINE SERIES (1 - PCV) [facility] Start: 06-21-1975 PNEUMOCOCCAL VACCINE SERIES (1 of 2 - PCV) PNEUMOCOCCAL VACCINE SERIES (1 of 2 - PCV) [facility] Start: 1972 History and physical examination, annual for health maintenance Wellness Visit [facility] Start: 1969 COVID-19 Vaccine (#1) COVID-19 [facility]ine (#1) [facility] Start: [facility] Hepatitis B vaccination HEP B VACCINE (1 of 3 - 3-dose series) [facility] Start: 1969 Hepatitis B vaccine (1 of 3 - 3-dose series) Hepatitis B vaccine (1 of 3 - 3-dose series) [facility] Start: 1969 Hepatitis C screening [facility] Start: 1969 Tetanus vaccination [facility] Start: 1969 Tobacco Counseling Tobacco Counseling [facility] CBC auto differential CBC auto d ifferential Lab Routine Daily until discontinued starting 08/23/2019, 3 [place] Comment on above: Daily until discontinued starting 2019, 3 completed End: 11-11-2024 CBC W Auto Differential panel - Blood CBC auto differential Lab Routine Daily for 5 Days starting 11/07/2024 until 11/11/2024, 3 completed [employer] Work Phone: Comment on above: Daily for 5 Days starting 11/07/2024 unt il 11/11/2024, 3 completed End: 11-11-2024 Comprehensive Metabolic Panel w/ Reflex to MG Comprehensive Metabolic Panel w/ Reflex to MG Lab Routine Daily for 5 Days starting 11/07/2024 until 11/11/2024, 3 completed [facility] Comment on above: Daily for 5 Days starting 11/07/2024 unt il 11/11/2024, [address] ABDOMEN PELVIS W IV CONTRAST Additional Contrast? None CT ABDOMEN PELVIS W IV CONTRAST Additional Contrast? None Imaging STAT 03/26/2020 3:01 PM EST [place] End: 11-02-2025 EGD - THERAPEUTIC, EUS, OR TUBE INTERVENTIONS EGD - THERAPEUTIC, EUS, OR TUBE INTERVENTIONS Endoscopy Routine Chronic pancreatitis, unspecified pancreatitis type (HCC) Epigastric pain Loose stools Heartburn Exocrine pancreatic insufficiency (HCC) 1 Occurrences starting 11/02/2024 until 11/02/2025 [facility] Work Phone: Comment on above: 1 Occurrences starting 11/02/2024 until 11/02/2025 EKG 12 Lead EKG 12 Lead ECG Routine 01/07/2024 2:42 PM EDT [employer] Work Phone: IgG Subclasses IgG Subclasses A dd-On 05/14/2017 2:06 PM [facility] Initiate Oxygen Therapy Protocol Initiate Oxygen Therapy Protocol Respiratory Care Routine Daily until discontinued starting 08/22/2019 [employer] Comment on above: Daily until discontinued starting 2019 Lipase Lipase Lab Routi ne Daily until discontinued starting 08/23/2019, 3 completed [facility] Comment on above: Daily until discontinued starting 2019, 3 completed End: 11-11-2024 Lipase [Enzymatic activity/volume] in Serum or Plasma Lipase Lab Routine Daily for 5 Days starting 11/07/2024 until 11/11/2024, 3 completed [employer] Comment on above: Daily for 5 Days starting 11/07/2024 unt il 11/11/2024, 3 completed Patient Education [facility] Work Phone: Patient referral [facility] Work Phone: End: 08-22-2019 Pulse Oximetry Spot Check Pulse Oximetry Spot Check Respiratory Care Routine One Time for 1 Occurrences starting 08/22/2019 until 08/22/2019 [employer] Comment on above: One Time for 1 Occurrences starting 08/07 until 08/22/2019 Screening colonoscopy SCREENING COLONOSCOPY GI/Bronch Routine Encounter for screening colonoscopy 01/28/2022 9:43 AM EST [facility] Screening colonoscopy SCREENING COLONOSCOPY GI/Bronch Routine Encounter for screening for malignant neoplasm of colon Ordered: 05/11/2023 [facility] Comment on above: Ordered: 05/11/2023 End: 04-07-2024 SPECIMEN REJECTION [employer] [facility] Comment on above: Once for 1 Occurrences starting 04/07/19 25 until 04/07/2024 End: 09-27-2024 Urinalysis with Microscopic Urinalysis with Microscopic Lab STAT One Time for 1 Occurrences starting 09/27/2024 until 09/27/2024 [facility] Comment on above: One Time for 1 Occurrences starting 09/07 until 09/27/2024 Immunizations Immunization Date Immunization Notes Care Provider Jhon jones 12-23-2015 influenza, injectabl e, quadrivalent, contains preservative Sabrina Dee MD, MPH Work Phone: [facility] 12-23-2015 influenza virus vaccine, unspecified formulation Sabrina Dee MD, MPH Work Phone: [facility] 12-15-2014 influenza virus vaccine, unspecified formulation Sabrina Dee MD, MPH Work Phone: [facility] Payers Date Payer Category Payer Self-pay [id number] 2023 Private Health Insurance [id number]. [id number] 2022 Medicaid [id number] 2022 Medicaid [id number]. [id number]. [id number] 2019 Unknown [facility] MEDICAID xxxxxxxxxxx 2019-Present [phone] CLAIMS DEPARTMENT [address] [place] [address] xxxxxxxxxxx [id number]. [id number] 2017 Unknown [id number] 2017 Unknown 1969 Unknown [id number] 2.16.840.1.027188.3.579.2. 900 1969 Unknown [id number] 2.16.840.1.570322.3.579.2. 900 1969 Unknown [id number] 2.16.840.1.830891.3.579.2. 900 1969 Unknown [id number] 2.16.840.1.711468.3.579.2. 900 1969 Unknown [id number] 2.16.840.1.847802.3.579.2. 900 1969 Unknown [id number] 2.16.840.1.457498.3.579.2. 593 1969 Unknown [id number] 2.16.840.1.360548.3.579.2. 593 1969 Unknown [id number] 2.16.840.1.201847.3.579.2. 593 1969 Unknown [id number] 2.16.840.1.274706.3.579.2. 593 1969 Unknown [id number] 2.16.840.1.005500.3.579.2. 593 1969 Unknown [id number] 2.16.840.1.348280.3.579.2. 593 1969 Unknown [id number] 2.16.840.1.839246.3.579.2. 593 1969 Unknown [id number] 2.16.840.1.558542.3.579.2. 593 1969 Unknown [id number] 2.16.840.1.583174.3.579.2. 593 1969 Unknown [id number] 2.16.840.1.446651.3.579.2. 593 1969 Unknown [id number] 2.16.840.1.745606.3.579.2. 593 1969 Unknown [id number] 2.16.840.1.921404.3.579.2. 593 1969 Unknown [id number] 2.16.840.1.019472.3.579.2. 593 1969 Unknown [id number] 2.16.840.1.461906.3.579.2. 593 1969 Unknown [id number] 2.16.840.1.984177.3.579.2. 594 1969 Unknown [id number] 2.16.840.1.367745.3.579.2. 594 1969 Unknown [id number] 2.16.840.1.139045.3.579.2. 594 1969 Unknown [id number] 2.16.840.1.546566.3.579.2. 727 1969 Unknown [id number] 2.16.840.1.619186.3.579.2. 727 1969 Unknown [id number] 2.16.840.1.837487.3.579.2. 727 1969 Unknown [id number] 2.16.840.1.389621.3.579.2. 727 1969 Unknown [id number] 2.16.840.1.977530.3.579.2. 727 1969 Unknown [id number] 2.16.840.1.976694.3.579.2. 727 1969 Unknown [id number] 2.16.840.1.781238.3.579.2. 173 1969 Unknown [id number] 2.16.840.1.628765.3.579.2. 173 1969 Unknown [id number] 2.16.840.1.416969.3.579.2. 173 1969 Unknown [id number] 2.16.840.1.851534.3.579.2. 173 1969 Unknown [id number] 2.16.840.1.031930.3.579.2. 173 1969 Unknown [id number] 2.16.840.1.984864.3.579.2. 173 1969 Unknown [id number] 2.16.840.1.369267.3.579.2. 727 1969 Unknown [id number] 2.16.840.1.931988.3.579.2. 7 1969 Unknown [id number] 2.16.840.1.989486.3.579.2. 727 1969 Unknown [id number] 2.16.840.1.832335.3.579.2. 727 1969 Unknown [id number] 2.16.840.1.268881.3.579.2. 727 1969 Unknown [id number] 2.16.840.1.497921.3.579.2. 1285 1969 Unknown [id number] 2.16.840.1.635432.3.579.2. 1285 1969 Unknown [id number] 2.16.840.1.627887.3.579.2. 1285 1969 Unknown [id number] 2.16.840.1.900425.3.579.2. 1285 1969 Unknown [id number] 2.16.840.1.124313.3.579.2. 1285 1969 Unknown [id number] 2.16.840.1.731605.3.579.2. 1285 1969 Unknown [id number] 2.16.840.1.401621.3.579.2. 1285 1969 Unknown [id number] 2.16.840.1.431967.3.579.2. 128 1969 Unknown [id number] 2.16.840.1.938575.3.579.2. 1285 1969 Unknown [id number] 2.16.840.1.074184.3.579.2. 128 1969 Unknown [id number] 2.16.840.1.434556.3.579.2. 1286 1969 Unknown [id number] 2.16.840.1.023438.3.579.2. 1286 1969 Unknown [id number] 2.16.840.1.419908.3.579.2. 1286 1959 Medicaid [id number] 1959 Unknown [id number] 1.2.840.195322.1.13.239.2. 7.3.120133.315 Unknown [id number] 2.16.840.1.873155.3.579.2. 531 Unknown [id number] 2.16.840.1.946125.3.579.2. 531 Social History Date Type Detail Facility Start: 06-09-2017 End: 11-02-2024 Tobacco smoking status NYIS Current every day smoker [facility] End: 10-30-2020 History of tobacco use Cigarette Smoker [facility] Start: 06-09-2017 End: 11-02-2024 Cigarettes smoked current (pack per day) - Reported [facility] Start: 1970 Sex Assigned At Not on file O [facility] Start: 08-22-2019 End: 11-08-2024 Alcohol intake Current non-drinker of alcohol (finding) [place] Exposure to SARS-CoV-2 (event) Unable to assess [place] Start: 03-08-2018 End: 11-02-2024 Tobacco use and exposure Never used [place] Start: 07-24-2014 Tobacco Comment Smokes < 1/2 p pd, smoker for 30+ years [facility] Start: 07-24-2014 Alcohol Comment Prior heavy dr [place], quit 8 years ago [facility] Start: 08-12-2022 End: 11-02-2024 Sex Assigned At [employer] Other Start: 09-25-2021 End: 04-18-2023 Tobacco smoking status NHIS Smoker (finding) [facility] Start: 1970 Sex Assigned At Female F [facility] Start: 05-09-2016 Alcohol Comment been sober for 9 yea rs [facility] Start: 04-02-2023 Tobacco smoking status NHIS Current some day smoker [facility] Start: 08-08-2024 Gender identity Identifies as female gender (finding) [facility] How often to you hav e a drink containing alcohol? Never [employer] Start: 02-08-2012 How many standard drinks containing alcohol do you have on a typical day? Patient does not drink [facility] Start: 06-25-2022 End: 09-27-2024 Tobacco smoking status NHIS Ex-smoker [facility] Start: 04-11-2023 End: 11-17-2024 Alcohol intake Ex-drinker (finding) [facility] Start: 06-25-2022 Alcohol Comment Has not consum ed alcohol in 12 years [facility] Start: 04-18-2012 Sex Female (finding) [employer] Start: 08-08-2024 Sexual orientation Heterosexual (fin nayan) [employer] Start: 11-02-2024 Tobacco Comment Doing STEP [facility] In the past 12 months, was there a time when you were not able to pay the mortgage or rent on time? No [employer] (I/We) worried whether (my/our) food would run out before (I/we) got money to buy more. Never true [employer] NEGATED: Highlighted rowStart: NINF History of tobacco use Passive smoker [facility] Functional Status Date Assessment Result Facility 11-17-2024 Total score [AUDIT-C] 0 11/18/19 25 2:05 PM [facility] Clinical Notes 10-08-2019 to 12-13-2024 Mayra Santiago RN - 11/17/2024 3:24 PM Mayra Flynn RN - 11/17/2024 3:24 PM Colin Mendoza RN - 11/17/2024 2:08 PM Colin Mendoza RN - 11/17/2024 2:08 PM EDTPatient Instructions Note Date & Type Note Facility 12-13-2024 Note HNO ID: [id number] Author: LINDSEY WILLARD APRN.CABLE INSTALLER REPAIRER HELPER Service: ? Author Type: Nurse Practitioner Type: [...] use and chronic pancreatitis who presented to [facility] Main ED on 12/09 with progressively worsening epigastric pain and N/V x3 days. Was seen in emergency department 12/[address] scan with chronic findings but also a mucosal pancreatic wall thickening. She follows with [facility] GI outpatient and underwent a celiac [...] entire pancreas. - Celiac plexus block performed. [facility] 11/02/2024 IMPRESSION AND PLAN Chioma Rainey is a 54 year old female who presents today for consult for pancreatitis. She has past medical history of gallstones s/p cholecystectomy, anemia and chronic ETOH pancreatitis. 1. Chronic pancreatitis, unspecified pancreatitis type (HCC) (K86.1) 2. E (more content not included)... [facility] 12-11-2024 Note HNO ID: [id number] Author: OBINNA GIFFORD RPh Service: Pharmacy Author [...] discharge medication list. Obinna Gifford RPh Pager: [phone] 12/11/2024 11:10 AM Medication List START taking [...] -120,000 unit delayed release capsule Generic drug: suloov-qoypaglb-vhpyqke Take 2 caps by mouth 3 times daily with meals and 1 cap with each snack. Take 1st cap before meal starts and the 2nd cap custodial through. Max of 10 capsules per day. STOP taking these medications PERCOCET 5-325 mg tablet Generic drug: oxyCODONE-acetaminophen Where to Get Your Medications These medications were sent to [id number] - [place] [address] - [address] - [phone] [place] [address] ondansetron 4 mg tablet oxyCODONE IR 5 mg immediate release tablet You can get these medications from any pharmacy You don't need a prescription for these medications acetaminophen 500 mg tablet [facility] 12-10-2024 Note HNO ID: [id number] Author: ALEXUS YOUNGBLOOD PA-C Service: Hospital Medicine Author Type: Physician Rubber Cutting Machine Tender Type: Progress Notes Filed: 12/10/2024 12:27 Note Text: DEPARTMENT OF HOSPITAL MEDICINE PROGRESS NOTE SERVICE DATE: 12/10/2024 SERVICE TIME: 12:22 PM Hospital Medicine/Primary Attending: Marianna John MD NIGHT AND WEEKEND COVERAGE: [facility] COVERAGE: Days: [phone], please page Anastasiya Fabrizio for patient issues. Nights: [phone], please page Team GIM 2: G/H 8th floor: [phone]; Non 8th floor [phone] Subjective INTERVAL HPI: - patient resting in [...] mg injection (PEPCID) 20 mg INTRAVENOUS DAILY vpbgcj-gnpjjfeb-zvfduqh 2 capsule cap(s) (CREON 24) 2 capsule [...] use and chronic pancreatitis who presented to [facility] Main ED on 12/09 with progressively [...] DATE: December 10, 2024 TIME: 12:22 PM [facility] 11-29-2024 Note Discharge Summary Admission and Discharge [...] with nausea. She was subsequently admitted to [facility] with acute on chronic pancreatitis with [...] with nursing staff, case management. Discharge medications: [place] 325/5 mg every 6 hours as needed. [...] meal (11/29/24 09:02:00) Discharge Medication List Prescriptions [place] 325 mg-5 mg oral tablet, 1 tab(s), [...] [place] Additional Instructions: Patient Education Acute Pancreatitis, Dtza-ju-Cxei [facility] Comment on above: Result Comment: Elec [...] Medical Center Hospital Care/Day Moderate 35 Minutes 68817 2. Leukocytosis (D72.829: Elevated white blood cell count, unspecified) Resolved. [facility] Moderate 35 Minutes 00782 3. History of alcohol use (Z87.898: Personal history of other specified conditions) Historical. Patient has been sober for 12 to 13 years. Ordered: [facility] Hospital Care/Day Moderate 35 Minutes 48963 4. Smoker (F17.200: Nicotine dependence, unspecified, uncomplicated) Recommend cessation. Disposition: Home soon in AM. I discussed the diagnosis and plan of care with the patient at the bedside. Moderate level of MDM based on addressing above issues. This documentation was transcribed using voice recognition software. Several attempts were made to ensure accuracy. However inadvertent computerized oracle specialist errors may be present. Tate Guido. Hospitalist. Ordered: [facility] Hospital Care/Day Moderate 35 Minutes [id number] Orders: HYDROmorphone, 1 mg = 1 mL, [...] Dis Tab, 4 (more content not included)... [facility] Comment on above: Result Comment: Elec tronically Signed By: SANDRA ALEXANDER, Tate\.br\Date and Time Signed: 11/28/24 10:41 EDT 11-28-2024 Note Marlyn Understands Medication Education Yes Marlyn Medication Education HYDROmorphone [facility] 11-27-2024 Note Progress Note-Physic malena Assessment/Plan 54-year-old female admitted for acute on chronic pancreatitis with leukocytosis. She has a history of alcohol use but not for 12-13 years chronic pancreatitis. 1. Acute on chronic pancreatitis (K85.90: Acute pancreatitis without necrosis or infection, unspecified) Known history of chronic pancreatitis to alcohol abuse [facility] November 09, 2023 with no acute abnormalities She also had an endoscopic nerve block by in [place] in November 17 Lipase trending down to 159 Continue n.p.o. except for ice chips Fluid hydration Pain control and antiemetics as needed Or[facility]/Day Moderate 35 Minutes 00935 2. Leukocytosis (D72.829: Elevated white blood cell count, unspecified) Resolved; white count at 8.2 with no shift (was 15.3 on admission) Or[facility]: [facility] Care/Day Moderate 35 Minutes 33965 3. History of alcohol use (Z87.898: Personal history of other specified conditions) Clean and sober for 12 to 13 years Ordered: [facility] Hospital Care/Day Moderate 35 Minutes 26767 4. Smoker (F17.200: Nicotine dependence, unspecified, uncomplicated) Recommend cessation Ordered: [facility]/Day Moderate 35 Minutes [id number] Orders: Basic Metabolic Panel CBC w/ Indices [...] Tab, 25 mg= 1 tab(s), Oral, TID [facility] Comment on above: Result Comment: Elec [...] history of chronic pancreatitis to alcohol abuse [facility] November 09, 2023 with no acute abnormalities She also had an endoscopic nerve block by in [place] in November 17 Lipase trending down to [...] 04:55:00) Lymph Auto: 39.1 % (11/26/24 04:55:00) Nicholas Auto: 9.7 % (11/26/24 04:55:00) Eos Auto: 1.7 % (11/26/24 04:55:00) Basophil Auto: 0.6 % (11/26/24 04:55:00) Neutro Absolute: 3.8 E9/L (11/26/24 04:55:00) Lymph Absolute: 3 E9/L (11/26/24 04:55:00) Nicholas Absolute: 0.7 E9/L (11/26/24 04:55:00) Eos Absolute: [...] mg= 1 tab(s) (more content not included)... [facility] Comment on above: Result Comment: Elec [...] also follows with a GI doc in [place] and had an endoscopic nerve block on [...] 22:06:00) Lymph Auto: 18.2 % (11/24/24 22:06:00) Nicholas Auto: 10.5 % (11/24/24 22:06:00) Eos Auto: 0.6 % (11/24/24:06:00) Basophil Auto: 0.6 % (11/24/24:06:00) Neutro Absolute: 10 E9/L High (11/24/24 22:06:00) Lymph Absolute: 2.6 E9/L (11/24/24 22:06:00) Nicholas Absolute: 1.5 E9/L High (11/24/24 22:06:00) Eos [...] s/p endoscopic nerve block by GI in [place] on 11/17. 2. Leukocytosis (D72.829: Elevated white [...] qualifying data Medicati (more content not included)... [facility] Comment on above: Result Comment: Elec [...] None Electronically Signed By: Mayra Santiago RN [facility] 11-17-2024 Nurse Note AMBULATORY PATIENT EDUCATION [...] Department: GASTROENTEROLOGY documented in this encounter [facility] 11-17-2024 Note Q3 Patient Name: Chioma Rainey Procedure Date: 11/17/2024 2:39 PM Date of : 1970 Admit Type: Outpatient Age: 54 Gender: Female Note Status: Finalized Attending MD: Josse Romo MD, [id number] Procedure: Upper EUS Indications: Celiac plexus block [...] Status: Finalized Attending MD: Josse Romo MD, [id number] Procedure: Upper EUS Indications: Celiac plexus block [...] 0 Note Initiated On: 11/17/2024 2:39 PM [facility] 11-17-2024 Nurse Note PRE OP LEARNING ASSESSMENT PROCEDURE/SURGERY: GI PROCEDURES: EGD and ESU READINESS TO LEARN COGNITIVE ABILITY: Alert and oriented MOTIVATION TO LEARN: Eager FAMILY SUPPORT: High - Very involved in pt care PATIENT LEARNS BEST BY: Individual Instruction Verbal Instruction FACTORS AFFECTING LEARNING: None PHYSICAL LIMITATIONS AFFECTING LEARNING: None Electronically Signed By: Colin Guzman RN In Department: GASTROENTEROLOGY [facility] 11-09-2024 History of Present illness Narrative Pt is leaving the floor at this time with family. Pt leaving AMA. Pt called out at this time stating they would like to leave AMA. Personal Financial Representative to bedside. AMA forms reviewed and signed by pt. Personal Financial Representative reviewed potential complications of leaving AMA as described on forms. IV removed. Pt is getting dressed. Family will be driving pt home. Patient was able to get some good sleep throughout the night post ativan. Patient was updated that patient's diet has increased to clear liquid diet. Patient is pleased. Patient denies any needs before remote mortgage underwriter leaving shift. Personal Financial Representative spoke with Obinna MORALEZ regarding patient's anxiousness and anxiety attack earlier. Personal Financial Representative informed CABLE INSTALLER REPAIRER HELPER that patient was requesting something to at least help patient get some sleep. Obinna MOARLEZ to put in a one time dose of IV ativan. Personal Financial Representative came to bedside to administer night time medication and give prn pain medications. Patient is tearful, anxious and very upset at this time. Personal Financial Representative spent a good 30 minutes at bedside [...] ready to just leave and go home. Personal Financial Representative gave emotional support to patient, giving words of reassurance and understanding as well as expressed sympathy as well as solutions for patient. Personal Financial Representative apologized to patient for not coming understanding what is going on. Personal Financial Representative educated patient on pancreatitis breaking it down to the simplest of terms and what we are currently doing to help her situation. Personal Financial Representative educated patient on the importance of bowel rest will help with patient's ongoing issue right now. Personal Financial Representative explained the process of getting over her flare up and how it is going to take time and cannot happen overnight. Personal Financial Representative also went over labs and broken them down to elementary school level terms so patient could understand the meaning as patient stated she was so confused on the number that were getting thrown around. Personal Financial Representative continued to let patient vent more and remote mortgage underwriter answered patient's questions as best as remote mortgage underwriter was able to within scope. Personal Financial Representative instructed to patient that remote mortgage underwriter will talk to Obinna MORALEZ about getting something for sleep as patient states I just want to stop hurting and I just want to be able to sleep. After everything and the conversation had ended, patient had felt more better and was no more talking about leaving AMA. Personal Financial Representative will speak to Obinna MORALEZ and update [...] status: at risk for malnutrition Professor Of Industrial Technology consult initiated I/O Daily weight Monitor Daily [...] No fluid accumulation (11/07/241041) Chronic Illness - Wood Crew Supervisor Strength: Not Performed (11/07/241041) Chronic Illness [...] Full Code Disposition: Discharge plan is pending [facility] Advanced Care Planning documentation: [x] I have [...] the patient's medical record. [DOES NOT SATISFY [facility] PERFORMANCE] ALEA Bowman CNP , ALEA, PRECISION CROP MANAGER-C Hospitalist Medicine 11/08/2024, 8:00 AM Cosigned by Raji Gilliam MD at 11/08/2024 12:47 PM EDT Associated attestation - Raji Gilliam MD - 11/08/2024 12:47 PM EDT Raji Gilliam M.D. Internal Medicine PA/PRECISION CROP MANAGER Attestation Note Patient: Chioma Arciniega Date of Admission: 11/06/2024 6:24 PM Date of Evaluation: 11/08/2024 I personally evaluated and examined the patient [id number]-chbn in conjunction with the PA/PRECISION CROP MANAGER and agree with the management and dispostition of the patient. Please see the PA/PRECISION CROP MANAGER's note for full details. My garcia findings [...] malnutrition due to current illness Professor Of Industrial Technology consult appreciated Monitor daily weights Monitor daily I/O's Medication monitoring / High risk medications: Parenteral administration of controlled substance(s) requiring close monitoring Disposition: Discharge plan is pending SHARED APC VISIT, PHYSICIAN ATTESTATION: Xqbs-io-cgfi I personally performed a substantive part of [...] Valdovinos MD , M.D. 11/08/2024 12:32 PM Personal Financial Representative to bedside to complete morning assessment. Upon entry to room, pt resting in bed, respirations even while on room air. Vitals obtained and assessment completed, see flow sheet for details. Call light in reach. Care ongoing. Pt called out for assistance with IV. New transparent dressing placed. IV is still patent, with good blood return. IV fluids continued as ordered. Care on-going. Personal Financial Representative at bedside for shift assessment. PT A&O [...] mass loss Fluid Accumulation: No fluid accumulation Wood Crew Supervisor Strength: Not Performed Nutrition Assessment: Inadequate oral intakes r/t altered GI function aeb NPO, nausea, GI abnormality lipase 285. Pt with recurrent pancreatitis. Follows GI in [place] and [place]. Pt states she has been dealing with this for 16 years, declined diet education. c/o continued nausea. Needs easy to chew low fat diet when advanced. Nutrition Related Findings: active bowel sounds, no edema Wound Type: None Current Nutrition Intake & Therapies: Average Meal Intake: NPO Average Supplements Intake: NPO Diet NPO Anthropometric Measures: Height: 157.5 cm (5' 2 ) [place] Body Weight (IBW): 110 lbs (50 kg) [...] Used for Energy Requirements: Current Energy (kcal/day): 0026-7344 (25-28/kg) Weight Used for Protein Requirements: Current [...] to determine [address], ERIN Contact: [phone] Medicated for nausea and pain at this [...] in red patient folder Pt arrived to [facility] via wheelchair from ED. Pt [...] care ongoing. documented in this encounter [facility] 11-02-2024 Instructions Lindsey Willard APRN.CABLE INSTALLER REPAIRER HELPER - 11/02/2024 1:26 PM EDT We discussed [...] This has been sent to your pharmacy ([facility] in [place], [place]) with a 90-day supply and 3 [...] Treatment of pancreatic exocrine deficiency. World J. Surg.2003;27(11):1004-7144. 5. [place] [employer]. Diagnosis and classification of diabetes [...] a prospective multicenter study. Dig Dis Sci. 2003;48(9):9164-2665. 9. Cystic Fibrosis Foundation. Use of pancreatic enzyme supplements for patietns with cystic fibrosis in the context of fibrosing colonopathy. https://www.cff.org/uploadedFiles/ Content/For_Caregivers/Clinical_Ca re_Guidelines/Nutrition_and_GI_Cli nical_Care_Guidelines/Consensus-St ortihnp-Opldhuhguv-Lxekxf-Replacem .pdf. Accessed February 13, 2017. 10. Danya Vieira. Diagnosis and treatment of pancreatic exocrine insufficiency. World J Gastroenterol. 2013;19(42):2457-8163. 11. Adeline JE, Bradford J, Ria M, [...] snack: When are you taking your enzymes? ([place] one) Before Meal During Meal After Meal During the past two weeks, how often have you: Had frequent diarrhea? Almost Always Often Sometimes Never Had greasy stools? Almost Always Often Sometimes Never Had loose stools? Almost Always Often Sometimes Never Wesley bloated? Almost Always Often Sometimes Never Had [...] or more documented in this encounter [facility] 11-02-2024 Note HNO ID: [id number] Author: LINDSEY WILLARD APRN.CNP Service: ? Author [...] She was seen 2 days ago at [facility] and had a lipase of 58. I do not think she needs another workup at this point. She states she has an appointment with a stencil sprayer on Thursday. I will get her some [...] patient to home. (more content not included)... [facility] 11-02-2024 History of Present illness Narrative New [...] She was seen 2 days ago at [facility] and had a lipase of 58. I do not think she needs another workup at this point. She states she has an appointment with a stencil sprayer on Thursday. I will get her some [...] health. I spent more than 30 minutes bcoq-bu-xugx with the patient and over half the time was devoted to counseling and/or coordination of care. Recording using [employer] software for draft documentation of the visit was discussed with the patient/authorized business process representative; all questions welcomed and answered. Patient/authorized business process representative agreed to proceed Lindsey Willard APRN.NAOMY documented in this encounter [facility] 10-28-2024 Radiology Diagnostic study [place] [address] CT Scan Report Signed Patient: Chioma Arciniega MR#: [id number] : 1970 Acct:[id number] Age/Sex: 54 / F ADM Date: 5 Loc: ER Room: Type: [facility] ER Attending Dr: Copies to: Andrew [...] Mendieta M.D. 10/28/2024 4:38 PM Dictation Location: [place] [address] Transcribed By: [facility] 10/28/24 1638 Dictated By: Cruzito Mendieta DO 10/28/24 1636 Signed By: 10/28/24 1638 [facility] 10-28-2024 Hospital Discharge instructions Additional Instructions It is very important that you follow up with your primary care provider in the next 2-3 days unless instructed to do otherwise. If you do not have a primary care provider, you can contact [facility] and ask about being established for primary care services. If you require specialist follow up, such as with an orthopedic physician, refrigerator room clerk, urologist, or other medical specialty, you should [...] should first take Tylenol or ibuprofen available hesf-mtq-rabnkvs. Medications, if prescribed to treat pain from [...] or if you have any other concerns [facility] Work Phone: 10-24-2024 Note ED Patient [...] urine pale yellow. General instructions ??? Take wyki-fre-ikyrchr and prescription medicines only as told by your health care provider. These include vitamin supplements. ??? Ask your health care provider if the medicine prescribed to you: ? Requires you to avoid driving or using machinery. ? Can cause constipation. You may need to take these actions to prevent or treat constipation: ? Take aiqs-alj-qtjjdno or prescription medicines. ? Eat foods that are high in fiber, such as beans, whole grains, and fresh fruits and vegetables. ? Limit foods that are high in fat and processed sugars, such as fried or sweet foods. ??? Do not use any products that contain nicotine or tobacco. These (more content not included)... [facility] 10-19-2024 Radiology Diagnostic study note [facility] [place] [address] [place] [address] CT Scan Report Signed Patient: Chioma Arciniega MR#: [id number] : 1970 Acct:[id number] Age/Sex: 54 / F ADM Date: 5 Loc: ER Room: Type: [facility] ER Attending Dr: Copies to: Diomedes [...] Mendieta M.D. 10/19/2024 10:12 PM Dictation Location: [facility] Transcribed By: [facility] 10/19/242211 Dictated By: Cruzito Mendieta DO 10/19/242203 Signed By: 10/19/242211 [facility] 10-09-2024 Note ED Patient Education Note [...] urine pale yellow. General instructions ??? Take uoco-xhe-rpwcwew and prescription medicines only as told by your health care provider. These include vitamin supplements. ??? Ask your health care provider if the medicine prescribed to you: ? Requires you to avoid driving or using machinery. ? Can cause constipation. You may need to take these actions to prevent or treat constipation: ? Take sfdh-ggy-cdilpom or prescription medicines. ? Eat foods that are high in fiber, such as beans, whole grains, and fresh fruits and vegetables. ? Limit foods that are high in fat and processed sugars, such as fried or sweet foods. ??? Do not use any products that contain nicotine or tobacco. These (more content not included)... [facility] 10-03-2024 Note ED Patient Education Note [...] urine pale yellow. General instructions ??? Take dwkz-tpg-hendigl and prescription medicines only as told by your health care provider. These include vitamin supplements. ??? Ask your health care provider if the medicine prescribed to you: ? Requires you to avoid driving or using machinery. ? Can cause constipation. You may need to take these actions to prevent or treat constipation: ? Take yjrp-brc-dpyghpc or prescription medicines. ? Eat foods that are high in fiber, such as beans, whole grains, and fresh fruits and vegetables. ? Limit foods that are high in fat and processed sugars, such as fried or sweet foods. ??? Do not use any products that contain nicotine or tobacco. These (more content not included)... [facility] 09-27-2024 Hospital Discharge instructions Tasha Zamora [...] be sent through Care Everywhere.Nausea and Vomiting ([place])documented in this encounter [facility] 09-20-2024 Hospital Discharge instructions Tasha Zamora [...] attachments cannot be sent through Care Everywhere.Pancreatitis ([place])Pancreatitis: Chronic Diet ([place])documented in this encounter [facility] 05-31-[address] ABDOMEN AND PELVI [...] London Hurd DO on 05/31/2024 3:21 PM [facility] 04-07-2024 Hospital Discharge instructions Peter Escalera MD - 04/07/2024 6:10 PM EST Please start a clear liquid diet today and tomorrow, advance as tolerated, avoid alcohol. Follow-up with your GI doctor tomorrow for further recommendations. The following attachments cannot be sent through Care Everywhere.Pancreatitis ([place])Clear Liquid Diet: General Info ([place]ese)documented in this encounter [facility] 01-19-2024 Nurse Surgical operation note Patient [...] off unit via wheelchair w/ family assistance. [facility] 01-19-2024 Nurse Note Patient mets [...] w/ family assistance. documented in this encounter [facility] 01-19-2024 History and physical note ENDOSCOPIC PREPROCEDURE HISTORY AND PHYSICAL HISTORY OF PRESENT ILLNESS: Chioma Rainey is a 53 y.o. female seen in the pre-procedure area at [facility] END[facility]COPY. The indication for [...] 50,000 Units, Oral, WEEKLY Pancreatic enzymes (Creon) 14346-61087-431945 units Cap DR Particles capsule 72,000 Units, Oral, 2 TIMES DAILY WITH MEALS Current Outpatient Medications: Ergocalciferol 1.25 MG (50619 UT) capsule, Take 1 capsule by mouth once a week., Disp: 8 capsule, Rfl: 0 Pancreatic enzymes (Creon) 37187-68059-661903 units Cap DR Particles capsule, Take 3 [...] using Monitored Anesthesia Care. Daniel Christiansen MD [facility] Work Phone: 01-19-2024 History and physical note ENDOSCOPIC PREPROCEDURE HISTORY AND PHYSICAL HISTORY OF PRESENT ILLNESS: Chioma Rainey is a 53 y.o. female seen in the pre-procedure area at [facility]. The indication for endoscopic evaluation includes: Alcohol-induced chronic pancreatitis PAST MEDICAL HISTORY: Past Medical History: Diagnosis Date Anemia Depression H. pylori infection Neutrophilic leukocytosis Pancreatitis SURGICAL HISTORY: Past Surgical History: Procedure Laterality Date EGD W/ ULTRASOUND 09/08/2023 for nerve block EGD W/ ULTRASOUND N/A 12/01/2019 Laterality: N/A; Surgeon: Sabrina Dee MD, MPH; Location: [facility] ENDOSCOPY EGD W/ ULTRASOUND N/A 04/23/2016 Laterality: N/A; Surgeon: Pineda Troy MD; Location: [facility]COPY EGD W/ ULTRASOUND N/A 01/23/2016 Laterality: N/A; Surgeon: Pineda Troy MD; Location: [facility]COPY CHANGE TUBE GASTROSTOMY N/A 08/20/2015 Laterality: N/A; Surgeon: Yanni Alonzo MD; Location: [facility] EGD DIAGNOSTIC N/A 06/25/2015 Laterality: N/A; Surgeon: Pineda Troy MD; Location: [facility] EGD W/ PLACEMENT OR REPLACEMENT PEG N/A 06/15/2015 Laterality: N/A; Surgeon: Curry Newell MD; Location: [facility] EGD W/ INSERTION TUBE OR CATHETER N/A 06/13/2015 Laterality: N/A; Surgeon: Jose Ty MD; Location: [facility] EGD W/ ULTRASOUND N/A 02/14/2015 Laterality: N/A; Surgeon: Pineda Troy MD; Location: [facility] ENDOSCOPY CHOLECYSTECTOMY CHOLECYSTECTOMY, LAPAROSCOPIC HYSTERECTOMY MEDICATIONS: Current Outpatient Medications Medication Instructions Ergocalciferol (VITAMIN D2) 50,000 Units, Oral, WEEKLY Pancreatic enzymes (Creon) [id number] units Cap DR Particles capsule 72,000 Units, Oral, 2 TIMES DAILY WITH MEALS Current Outpatient Medications: Ergocalciferol 1.25 MG (83179 UT) capsule, Take 1 capsule by mouth once a week., Disp: 8 capsule, Rfl: 0 Pancreatic enzymes (Creon) 63022-56[address]-593956 units Cap DR Particles capsule, Take 3 [...] Christiansen MD documented in this encounter [facility] 01-07-2024 Hospital Discharge instructions Marina Jensen, ART SALES CONSULTANT - CABLE INSTALLER REPAIRER HELPER - 01/07/2024 5:08 PM EDT Increase fluids. [place] diet Continue home medication The following attachments cannot be sent through Care Everywhere.Abdominal Pain ([place])Pancreatitis ([place])Pancreatitis: Chronic Diet ([place]ese)documented in this encounter [facility] 09-08-2023 History and physical note ENDOSCOPIC [...] 50,000 Units, Oral, WEEKLY Pancreatic enzymes (Creon) 71194-[address] units [address] Particles capsule 72,000 Units, Oral, 2 TIMES DAILY WITH MEALS Current Outpatient Medications: Ergocalciferol 1.25 MG (05183 UT) capsule, Take 1 capsule by mouth once a week., Disp: 8 capsule, Rfl: 0 Pancreatic enzymes (Creon) 54530-[address] Particles capsule, Take 3 [...] Monitored Anesthesia Care. Sabrina Dee MD, MPH [facility] 09-08-2023 History and physical note ENDOSCOPIC PREPROCEDURE HISTORY AND PHYSICAL HISTORY OF PRESENT ILLNESS: Chioma Rainey is a 53 y.o. female seen in the pre-procedure area at [facility]. The indication for endoscopic evaluation includes: Alcohol-induced chronic pancreatitis PAST MEDICAL HISTORY: Past Medical History: Diagnosis Date Anemia Depression H. pylori infection Neutrophilic leukocytosis Pancreatitis SURGICAL HISTORY: Past Surgical History: Procedure Laterality Date EGD W/ ULTRASOUND N/A 12/01/2019 Laterality: N/A; Surgeon: Sabrina Dee MD, MPH; Location: [facility] EGD W/ ULTRASOUND N/A 04/23/2016 Laterality: N/A; Surgeon: Pineda Troy MD; Location: [facility] EGD W/ ULTRASOUND N/A 01/23/2016 Laterality: N/A; Surgeon: Pineda Troy MD; Location: [facility] CHANGE TUBE GASTROSTOMY N/A 08/20/2015 Laterality: N/A; Surgeon: Yanni Alonzo MD; Location: [facility] EGD DIAGNOSTIC N/A 06/25/2015 Laterality: N/A; Surgeon: Pineda Troy MD; Location: [facility] EGD W/ PLACEMENT OR REPLACEMENT PEG N/A 06/15/2015 Laterality: N/A; Surgeon: Curry Newell MD; Location: [facility] EGD W/ INSERTION TUBE OR CATHETER N/A 06/13/2015 Laterality: N/A; Surgeon: Jose Ty MD; Location: [facility] EGD W/ ULTRASOUND N/A 02/14/2015 Laterality: N/A; Surgeon: Pineda Troy MD; Location: [facility] CHOLECYSTECTOMY CHOLECYSTECTOMY, LAPAROSCOPIC HYSTERECTOMY MEDICATIONS: Current Outpatient Medications Medication Instructions Ergocalciferol (VITAMIN D2) 50,000 Units, Oral, WEEKLY Pancreatic enzymes (Creon) 05607-[address] Particles capsule 72,000 Units, Oral, 2 TIMES DAILY WITH MEALS Current Outpatient Medications: Ergocalciferol 1.25 MG (39999 UT) capsule, Take 1 capsule by mouth once a week., Disp: 8 capsule, Rfl: 0 Pancreatic enzymes (Creon) 71042-[address] units [address] Particles capsule, Take 3 [...] MPH documented in this encounter [facility] 09-08-2023 Miscellaneous Notes RN and MD educated pt on DC instructions, pt verbalized understanding. IV removed per protocol. documented in this encounter [facility] 09-08-2023 Nurse Note RN and educated pt on DC instructions, pt verbalized understanding. IV removed per protocol. [facility] 05-22-2023 Miscellaneous Notes Called patient to remind them to bring their most current copy of their medication list with them to their appt. Patient verbalizes understanding. documented in this encounter [facility] 05-22-2023 Telephone encounter Note Called patient to remind them to bring their most current copy of their medication list with them to their appt. Patient verbalizes understanding. [facility] 05-11-2023 History of Present illness Narrative This Customer Experience Professional verified the patients name and date of [...] for pain management 5. Prior evaluation at [facility] for TPIAT and was not a [...] (human immunodeficiency virus infection), Hyperlipidemia, Hyperthyroidism, Hypothyroidism, OK (myocardial infarction), Migraine, PEGGY (obstructive sleep apnea), [...] includes the following prescription(s): Pancreatic enzymes (Creon) 412[address] Particles capsule and Ergocalciferol 1.25 MG (42753 UT) capsule. Allergies: She is allergic to [...] Hepatology, and Nutrition documented in this encounter [facility] 05-11-2023 Instructions Sabrina Dee MD, [...] celiac plexus block documented in this encounter [facility] 04-16-2023 Miscellaneous Notes Pt called requesting to schedule a new patient appt. Referral is in media from Tamela Keenan DO. A good phone number to reach the pt: [phone] Referral in media was to [facility]iology so pt has no referral to nephrology. LM informing pt she would need to have her referring provider fax us over a referral and then I could schedule her a new pt appt. documented in this encounter [facility] 04-16-2023 Telephone encounter Note Pt called requesting to schedule a new patient appt. Referral is in media from Tamela Keenan DO. A good phone number to reach the pt: [phone] [facility] [facility] 04[facility]23 Telephone encounter Note Referral in media was to [facility] so pt has no referral to nephrology. LM informing pt she would need to have her referring provider fax us over a referral and then I could schedule her a new pt appt. [facility] 04-16-2023 Miscellaneous Notes LMOM for the patient to call and schedule their new pt appointment with [facility]. documented in this encounter [facility] 04-16-2023 Telephone encounter Note LMOM for the patient to call and schedule their new pt appointment with [facility]. [facility] 08-12-2022 History and physical note ENDOSCOPIC PREPROCEDURE HISTORY AND PHYSICAL HISTORY OF PRESENT ILLNESS: Chioma Rainey is a 52 y.o. female seen in the pre-procedure area at [facility]. The indication for endoscopic evaluation includes: Alcohol-induced chronic pancreatitis PAST MEDICAL HISTORY: Past Medical History: Diagnosis Date Anemia Depression H. pylori infection Neutrophilic leukocytosis Pancreatitis SURGICAL HISTORY: Past Surgical History: Procedure Laterality Date EGD W/ ULTRASOUND N/A 12/01/2019 Laterality: N/A; Surgeon: Sabrina Dee MD, MPH; Location: [facility] EGD W/ ULTRASOUND N/A 04/23/2016 Laterality: N/A; Surgeon: Pineda Troy MD; Location: [facility] EGD W/ ULTRASOUND [...] 20 mg, Oral, DAILY Pancreatic enzymes (Creon) [address] Particles capsule 48,000 Units, Oral, 3 TIMES DAILY WITH MEALS Current Outpatient Medications: omeprazole [address] capsule, Take 1 capsule by mouth daily., Disp: 30 capsule, Rfl: 6 amitriptyline 10 MG tablet, Take 2.5 tablets by mouth at bedtime., Disp: 30 tablet, Rfl: 11 ergocalciferol 1.25 MG (36047 UT) capsule, Take 1 capsule by mouth once a week for 8 doses., Disp: 8 capsule, Rfl: 0 Pancreatic enzymes (Creon) 18781-[address] Particles capsule, Take 2 [...] Monitored Anesthesia Care. Sabrina Dee MD, MPH [facility] 08-12-2022 History and physical note ENDOSCOPIC PREPROCEDURE HISTORY AND PHYSICAL HISTORY OF PRESENT ILLNESS: Chioma Rainey is a 52 y.o. female seen in the pre-procedure area at [facility]. The indication for endoscopic evaluation includes: Alcohol-induced chronic pancreatitis PAST MEDICAL HISTORY: Past Medical History: Diagnosis Date Anemia Depression H. pylori infection Neutrophilic leukocytosis Pancreatitis SURGICAL HISTORY: Past Surgical History: Procedure Laterality Date EGD W/ ULTRASOUND N/A 12/01/2019 Laterality: N/A; Surgeon: Sabrina Dee MD, MPH; Location: [facility] EGD W/ ULTRASOUND N/A 04/23/2016 Laterality: N/A; Surgeon: Pineda Troy MD; Location: [facility] EGD W/ ULTRASOUND N/A 01/23/2016 Laterality: N/A; Surgeon: Pineda Troy MD; Location: [facility] CHANGE TUBE GASTROSTOMY N/A 08/20/2015 Laterality: N/A; Surgeon: Yanni Alonzo MD; Location: [facility] EGD DIAGNOSTIC N/A 06/25/2015 Laterality: N/A; Surgeon: Pineda Troy MD; Location: [facility] EGD W/ PLACEMENT OR REPLACEMENT PEG N/A 06/15/2015 Laterality: N/A; Surgeon: Curry Newell MD; Location: [facility] EGD W/ INSERTION TUBE OR CATHETER N/A 06/13/2015 Laterality: N/A; Surgeon: Jose Ty MD; Location: [facility] EGD W/ ULTRASOUND N/A 02/14/2015 Laterality: N/A; Surgeon: Pineda Troy MD; Location: [facility] CHOLECYSTECTOMY CHOLECYSTECTOMY, LAPAROSCOPIC HYSTERECTOMY MEDICATIONS: Current Outpatient Medications Medication Instructions Amitriptyline (ELAVIL) 25 mg, Oral, DAILY AT BEDTIME Ergocalciferol (VITAMIN D2) 50,000 Units, Oral, WEEKLY omeprazole (PRILOSEC) 20 mg, Oral, DAILY Pancreatic enzymes (Creon) [id number] units Cap [address] Particles capsule 48,000 Units, Oral, 3 TIMES DAILY WITH MEALS Current Outpatient Medications: omeprazole [address] capsule, Take 1 capsule by mouth daily., Disp: 30 capsule, Rfl: 6 amitriptyline 10 MG tablet, Take 2.5 tablets by mouth at bedtime., Disp: 30 tablet, Rfl: 11 ergocalciferol 1.25 MG (74617 UT) capsule, Take 1 capsule by mouth once a week for 8 doses., Disp: 8 capsule, Rfl: 0 Pancreatic enzymes (Creon) [address]8700-[address] Particles capsule, Take 2 [...] Dee MD, MPH documented in this encounter [facility] 08-12-2022 Nurse Note PT Given discharge paperwork and reviewed per MD and nurse. Hide Trimmer available.Diet and restrictions reviewed as well. Venous access removed no complications noted. Ok to d/c Anesthesia and procedural MD. documented in this encounter [facility] 08-12-2022 Nurse Surgical operation note PT Given discharge paperwork and reviewed per MD and nurse. Hide Trimmer available.Diet and restrictions reviewed as well. Venous access removed no complications noted. Ok to d/c Anesthesia and procedural . [facility] 06-16-2022 History of Present illness Narrative This Customer Experience Professional verified the patients name and date of [...] for pain management 5. Prior evaluation at [facility] for TPIAT and was not a candidate 6. Last CT was at [facility] in 05/2019: No calcification in the [...] (human immunodeficiency virus infection), Hyperlipidemia, Hyperthyroidism, Hypothyroidism, OK (myocardial infarction), Migraine, PEGGY (obstructive sleep apnea), [...] amitriptyline 10 MG tablet, ergocalciferol 1.25 MG (91586 UT) capsule, and Pancreatic enzymes (Creon) 41248-[address] Particles capsule. Allergies: She [...] Hepatology, and Nutrition documented in this encounter [facility] 06-16-2022 Instructions Sabrina Dee MD, MPH - 06/16/2022 11:00 AM EDT Schedule EUS celiac plexus block; EGD dilation Referral to endocrinology; appointment to be scheduled Return to clinic in Mar 2023 Smoking cessation Vitamin D 2000 units daily Calcium supplement 1 gram daily Omeprazole (Prilosec) 20mg daily, take at least 30 mins before dinner documented in this encounter [facility] 01-28-2022 Miscellaneous Notes Attending physician in room speaking with patient and family on results. Attending physician ok for discharge. Pt ambulated unassisted with steady gait and balance. IV removed and discharge instructions given with verbal ok by patient of understanding. Pt discharged via w/c with log driver from unit. Dr dee aware patient ready for results Updated dr goins on patient pain and received new orders documented in this encounter [facility] 01-28-2022 Note Formatting of this n ote might be different from the original. Attending physician in room speaking with patient and family on results. Attending physician ok for discharge. Pt ambulated unassisted with steady gait and balance. IV removed and discharge instructions given with verbal ok by patient of understanding. Pt discharged via w/c with log driver from unit. [facility] 01-28-2022 Note Formatting of this n ote might be different from the original. Dr dee aware patient ready for results [facility] 01-28-2022 Note Formatting of this n ote might be different from the original. Updated dr goins on patient pain and received new orders [facility] 01-28-2022 History and physical note ENDOSCOPIC PREPROCEDURE HISTORY AND PHYSICAL HISTORY OF PRESENT ILLNESS: Chioma Rainey is a 51 y.o. female seen in the preoprocedure area at [facility]. The indication for endoscopic evaluation includes: Recurrent acute pancreatitis PAST MEDICAL HISTORY: Past Medical History: Diagnosis Date Anemia Depression H. pylori infection Neutrophilic leukocytosis Pancreatitis SURGICAL HISTORY: Past Surgical History: Procedure Laterality Date EGD W/ ULTRASOUND N/A 12/01/2019 Laterality: N/A; Surgeon: Sabrina Dee MD, MPH; Location: [facility] EGD W/ ULTRASOUND N/A 04/23/2016 Laterality: N/A; Surgeon: Pineda Troy MD; Location: [facility] EGD W/ ULTRASOUND N/A 01/23/2016 Laterality: N/A; Surgeon: Pineda Troy MD; Location: [facility] CHANGE TUBE GASTROSTOMY N/A 08/20/2015 Laterality: N/A; Surgeon: Yanni Alonzo MD; Location: [facility] EGD DIAGNOSTIC N/A 06/25/2015 Laterality: N/A; Surgeon: Pineda Troy MD; Location: [facility] EGD W/ PLACEMENT OR REPLACEMENT PEG N/A 06/15/2015 Laterality: N/A; Surgeon: Curry Newell MD; Location: [facility] EGD W/ INSERTION TUBE OR CATHETER N/A 06/13/2015 Laterality: N/A; Surgeon: Jose Ty MD; Location: [facility] EGD W/ ULTRASOUND N/A 02/14/2015 Laterality: N/A; Surgeon: Pineda Troy MD; Location: [facility] CHOLECYSTECTOMY CHOLECYSTECTOMY, LAPAROSCOPIC HYSTERECTOMY MEDICATIONS: Current Outpatient Medications Medication Instructions amitriptyline (ELAVIL) 25 mg, Oral, DAILY AT BEDTIME ergocalciferol (VITAMIN D2) 50,000 Units, Oral, WEEKLY Pancreatic enzymes (Creon) 32763-[address] Particles capsule 48,000 Units, Oral, 3 TIMES DAILY WITH MEALS Current Outpatient Medications: amitriptyline 10 MG tablet, Take 2.5 tablets by mouth at bedtime., Disp: 30 tablet, Rfl: 11 Pancreatic enzymes (Creon) 29829-[address] units [address] Particles capsule, Take 2 capsules by mouth 3 times daily with meals., Disp: 180 capsule, Rfl: 0 ergocalciferol 1.25 MG (16527 UT) capsule, Take 1 capsule by mouth [...] Monitored Anesthesia Care. Sabrina Dee MD, MPH [facility] 01-28-2022 History and physical note ENDOSCOPIC PREPROCEDURE HISTORY AND PHYSICAL HISTORY OF PRESENT ILLNESS: Chioma Rainey is a 51 y.o. female seen in the preoprocedure area at [facility]. The indication for [...] Laterality: N/A; Surgeon: Pineda Troy MD; Location: [facility] EGD W/ ULTRASOUND N/A 01/23/2016 [...] 50,000 Units, Oral, WEEKLY Pancreatic enzymes (Creon) 50916-[address] Particles capsule 48,000 Units, Oral, 3 TIMES DAILY WITH MEALS Current Outpatient Medications: amitriptyline 10 MG tablet, Take 2.5 tablets by mouth at bedtime., Disp: 30 tablet, Rfl: 11 Pancreatic enzymes (Creon) 88434-[address] Particles capsule, Take 2 capsules by mouth 3 times daily with meals., Disp: 180 capsule, Rfl: 0 ergocalciferol 1.25 MG (61452 UT) capsule, Take 1 capsule by mouth [...] MPH documented in this encounter [facility] 12-16-2021 History of Present illness Narrative [...] for pain management 5. Prior evaluation at [facility] for TPIAT and was not a candidate 6. Last CT was at [facility] in 05/2019: No calcification in the [...] (human immunodeficiency virus infection), Hyperlipidemia, Hyperthyroidism, Hypothyroidism, OK (myocardial infarction), Migraine, PEGGY (obstructive sleep apnea), [...] 10 MG tablet and Pancreatic enzymes (Creon) 03757-[address] Particles capsule. Allergies: She [...] 6 months documented in this encounter [facility] 12-16-2021 Instructions Sabrina Dee MD, MPH - 12/16/2021 11:30 AM EDT Schedule DEXA scan Schedule colonoscopy Schedule EUS Start vitamin D 1,000 units daily. Start calcium supplements 1g daily RTC in 6 months [facility] Encounter Date Diagnosis Assessment [...] care instructions given in writting by [facility] Care At Home document [employer] Other 08-01-2020 History general Narrative - Reported* Type Description Date Medical History chronic pancreatitis Medical History chronic pain Medical History former alcoholic Surgical History egd- [facility] 10/2019 Surgical History GALLBLADDER Surgical History COLON-[facility] Hospitalization History see above [employer] Other Evaluation noteNo assessment information available [facility] Work Phone: Evaluation note* Diagnosis Recurrent acute pancreatitis- Primary Acute pancreatitis History of smoking 25-50 pack years Alcohol-induced chronic pancreatitis Chronic pancreatitis Epigastric pain Abdominal pain, epigastric Encounter for screening colonoscopy Special screening for malignant neoplasms, colon [facility] Recurrent acute pancreatitis Acute pancreatitis History of smoking 25-50 pack years Encounter for screening colonoscopy Special screening for malignant neoplasms, colon [facility] Diagnosis Other osteoporosis without current pathological fracture- Primary Recurrent acute pancreatitis Acute pancreatitis Encounter for screening colonoscopy Special screening for malignant neoplasms, colon [facility] Diagnosis Encounter for screening colonoscopy Special screening for malignant neoplasms, colon [facility] Osteoporosis without current pathological fracture, unspecified osteoporosis type- Primary Alcohol-induced chronic pancreatitis Chronic pancreatitis [facility] Diagnosis Alcohol-induced chronic pancreatitis Chronic pancreatitis [facility] Diagnosis Alcohol-induced chronic pancreatitis- Primary Chronic pancreatitis Encounter for screening for malignant neoplasm of colon Special screening for malignant neoplasms, colon Other osteoporosis without current pathological fracture Epigastric pain Abdominal pain, epigastric Smoking Tobacco use disorder Gastroesophageal reflux disease without esophagitis Esophageal reflux [facility] Diagnosis Alcohol-induced chronic pancreatitis Chronic pancreatitis [facility] Diagnosis Alcohol-induced chronic pancreatitis Chronic pancreatitis [facility] Diagnosis Hypokalemia- Primary Hypopotassemia Acute recurrent pancreatitis Acute pancreatitis [facility]* Diagnosis Acute on chronic pancreatitis (HCC)- Primary Abdominal pain, epigastric [facility] Diagnosis Acute pancreatitis without infection or necrosis, unspecified pancreatitis type- Primary Acute recurrent pancreatitis Acute pancreatitis documented in this encounter [facility] note* Diagnosis Abdominal pain, epigastric- Primary documented in this encounter [facility] note* Diagnosis Other chronic pancreatitis (HCC)- Primary documented in this encounter [facility] note* Diagnosis Abdominal pain, epigastric- Primary Nausea and vomiting, unspecified vomiting type documented in this encounter [facility] note* Diagnosis Chronic pancreatitis, unspecified pancreatitis type (HCC)- Primary Exocrine pancreatic insufficiency (HCC) Other specified disease of pancreas Epigastric pain Abdominal pain, epigastric Loose stools Abnormal feces Heartburn Tobacco use Tobacco use disorder documented in this encounter [facility] note* Diagnosis Acute on chronic pancreatitis (HCC)- Primary Acute pancreatitis, unspecified complication status, unspecified pancreatitis type documented in this encounter [facility] note* Diagnosis Chronic pancreatitis, unspecified pancreatitis type (HCC) Epigastric pain Abdominal pain, epigastric Loose stools Abnormal feces Heartburn Exocrine pancreatic insufficiency (HCC) Other specified disease of pancreas [facility] Additional Instructions Fluids Phenergan if needed for nausea vomiting Bentyl as needed for abdominal pain Follow-up with your GI specialist call Thursday for appointment Return here if any problems persist or worsen [facility] Work Phone: Hospital Discharge instructions Additional Instructions Clear with diet today and advance as tolerated Push fluids Percocet if needed for severe pain Zofran or Phenergan if needed for nausea vomiting Keep your doctor's appointment tomorrow as planned Return here if you develop any increased pain, vomiting unable to be controlled, fevers, chills or any other [facility] Work Phone: Hospital Discharge instructions Additional Instructions Follow-up with your primary care doctor Return to ED if develop worsening symptoms or concernsCh[facility] Work Phone: Hospital Discharge instructions Additional Instructions Follow-up with your private physician as your calcium was slightly elevated Return if symptoms are worse Lots of fluids/no alcoholGood [facility]aritan Hospital Work Phone: Hospital Discharge instructions* Attachments The following attachments cannot be sent through Care Everywhere. * Clear Liquid Diet: General Info ([place]) [facility]* Attachments The following attachments cannot be sent through Care Everywhere. * Abdominal Pain ([place]) [facility] Dis[facility] instructions Additional Instructions Clear liquid diet and then advance as tolerated Avoid any spicy, hot, fried foods Zofran for nausea vomiting [place] if needed for severe pain Follow-up with your GI specialist call tomorrow for appointment Return here if any problems persist or [facility]senCh[facility] Work Phone: Hospital Discharge instructions* Attachments The following attachments cannot be sent through Care Everywhere. * Pancreatitis ([place]) documented in this encounterBon [facility]it[facility] HospitalInstructionsNot on file documented in this encounterProCarra[facility] [employer] SystemInstructionsNot on file documented in this encounterProCarraway [facility] [employer] SystemInstructionsNot on file documented in this encounterProMadison Health SystemReason for referral (narrative)No reason for referral information availableGood Samaritan Hospital Work Phone: Reason for visit Narrative* Outpatient Procedure (Routine) - Closed Specialty Diagnoses / Procedures Referred By Zia t Referred To Contact [facility] Diagnoses Chronic pancreatitis, unspecified pancreatitis type (HCC) Epigastric pain Loose stools Heartburn Exocrine pancreatic insufficiency (HCC) Procedures EGD - THERAPEUTIC, EUS, OR TUBE INTERVENTIONS EGD TRANSORAL BIOPSY SINGLE/MULTIPLE Lindsey Willard APRN.CABLE INSTALLER REPAIRER HELPER [address] [place] [address] Phone: tel: fax: [facility] [address] [place] [address] Referral ID Status Reason Start Date Expiration Date V isits Requested Visits Authorized [id number] Closed Auto-Generate d Referral 11/02/2024 11/02/[address] [facility] Discharge Instructions * Jose Brown PA-C [...] Log into your personal health record on [email or web address] and enter E907 in the Education box to learn more about Abdominal Pain: Care Instructions. Current as of: August 03, 2015 Content Version: 11.2 5209-0069 Noteleaf. Care instructions adapted under license by your healthcare professional. If you have questions about a medical condition or this instruction, always ask your healthcare professional. Note[employer] disclaims any warranty or liability for your [...] Log into your personal health record on [email or web address] and enter H591 in the Education box to learn more about Nausea and Vomiting: Care Instructions. Current as of: August 03, 2015 Content Version: 11.2 5815-7352 Noteleaf. Care instructions adapted under license by your healthcare professional. If you have questions about a medical condition or this instruction, always ask your healthcare professional. [employer] disclaims any warranty or liability for your use of this information. Please review regarding your visit: Please note that your blood pressure during this ER visit was above 120/80 mmHg. YOUR BP READING WAS: 111/88 The [place] [employer] (AHA) defines a normal blood [...] review at your convenience for more information: [email or web address] in this encounter* Discharge Instr - Other Orders - Poncho Sparks RN - 05/15/2017 1:20 PM EST Patient voices desire to leave hospital AMA. IV removed. Patient is ambulatory in care of spouse. [facility] hospitalist notified. in this encounter* Montse Khan CNP - 08/24/2017 Seek medical attention if you have worsening symptoms or other concerns. Please follow up with your family doctor or one of your choosing. You may find a provider through the [facility] Physician Referral Service by calling [phone] ([phone]) or by visiting [email or web address] Chioma, Thank You for choosing [facility]! The following attachments cannot be sent through Care Everywhere. * Nausea and Vomiting ([place]ese) * Gastroenteritis ([place]) * Diarrhea ([place]ese) in this encounter The following attachments cannot be sent through Care Everywhere. * Pancreatitis ([place]) in this encounter* Instructions* Laura Meyer, RN - 08/25/2019 Patient Instructions: Activity: activity as tolerated Diet: encourage fluids GI specialist in 2 weeks. * Attachments The following attachments cannot be sent through Care Everywhere. * Pancreatitis: Chronic Diet ([place]ese) * Pancreatitis ([place]) documented in this encounter Assessments Diagnosis Epigastric [...] FoundDocuments on File Type Date Recorded Patient City Controller Expl anation Advance Directives and Living Will Power of Do All Operator Latest Code Status on File Code Status Date Activated Date Inactivated Comments Full Code 08/22/2019 4:27 PM Documents on File Type Date Recorded Patient City Controller Expl anation Advance Directives and Livin g [...] Documents on File Type Date Recorded Patient City Controller Expl anation ACP-Advance Directive ACP-Power of Do All Operator Latest Code Status on File Code [...] toradol is contraindicated. Called Dr. Hughes back, remote mortgage underwriter explained that patient is tolerating dilaudid. Dr. Hughes ordered dose of dilaudid increased from 0.25 mg to 0.5 mg q4 hrs PRN. * Ladan Stearns RN - 08/24/2019 1:27 PM EDT Patient walking in hallway at this time. * Ladan Stearns RN - 08/24/2019 9:14 AM EDT Personal Financial Representative to patients bedside at this time to reassess pain. Patient sitting in chair, appears restless and is tearful. Patient states Dilaudid did not help the pain, states there is nothing remote mortgage underwriter can do as she deals [...] Scheduled for EGD in September with her Film Process Operator at [facility] Discharge Planning -- Home when stable Carley Camara APRN, PRECISION CROP MANAGER-C Associated attestation - Rajeev Cantor MD - 08/24/2019 5:30 PM EDT Attending Supervising Physician s Attestation Statement I have personally evaluated and examined the patient [id number] in conjunction with the nurse practitioner. I [...] Examined and Reviewed plan of care with PRECISION CROP MANAGER. Directions and discussion about care and plans. [...] [place] RN - 08/23/2019 4:40 PM EDT Personal Financial Representative contacted Dr. Cantor regarding update that patient [...] he would not give order for Benedryl. Personal Financial Representative let nurse know that if patient's c/o ithcing and redness doesn't improve in an hour, that remote mortgage underwriter will be calling back to update physician. * Brie Birmingham RN - 08/23/2019 3:20 PM EDT Personal Financial Representative called into patient's room d/t patient c/o itching, feeling hot , and slight redness noted to BUE and face. Personal Financial Representative contacted Dr. Cantor office and left message with his nurse, asking for IV Benedryl and d/c of Lovenox. Patient thinks she may have had reaction to Lovenox in the past, and thatis the only other med she is currently taking here other than Dilaudid. Personal Financial Representative did once again verify that patient usually [...] medically stable. Patient lives with her in [place]. She uses no DME and has no outside services currently in place. Patient provides for her own transportation needs and manages her medications. She is independent with her ADL's. PCP is [facility]. [facility] and denies needing further assistance with the cost of her medications. Discharge plan is home with no additional services at this time. Patient is a 'Full Code' status. She has no healthcare directives and voices that she is not interested in pursuing these documents further. BOAT MOTOR MECHANIC to monitor and assist with discharge planning [...] Birmingham RN - 08/23/2019 9:05 AM EDT Personal Financial Representative made CABLE INSTALLER REPAIRER HELPER aware that patient is vomiting at this time since clear liquid diet added. Personal Financial Representative to give Zofran and place patient back [...] weight loss, but states of weight gain. [id number] Discussed need to re-zero Pt bed to verify gain. She declined education needs states she has a GI doctor and RDN at the [facility]. Reports following the guidelines they recommended. [...] 5. Fluid Accumulation-No significant fluid accumulation, 6. Wood Crew Supervisor Strength-Not measured Nutrition Risk Level: Moderate Nutrient Needs: Estimated Daily Total Kcal: 9056-2270(20-23/kg) Estimated Daily Protein (g): 65-75g(1.3-1.5g/kg) Estimated Daily [...] weight gain/23%, recommend to re-zero Pt bed [place] Body Wt: 110 lb (49.9 kg), % [place] Body 129% BMI Classification: BMI 25.0 - [...] Nausea or Vomiting, Patient/Family Education Contact Number: [phone] * Carley Camara APRN - CABLE INSTALLER REPAIRER HELPER - 08/23/2019 7:30 AM EDT Progress [...] Daily Discharge Plan--later today/tomorrow Carley Camara APRN, PRECISION CROP MANAGER-C Associated attestation - Rajeev Cantor MD - 08/23/2019 12:04 PM EDT Attending Supervising Physician s Attestation Statement I have personally evaluated and examined the patient [id number] in conjunction with the nurse practitioner. I [...] Examined and Reviewed plan of care with PRECISION CROP MANAGER. Directions and discussion about care and plans. [...] Patient arrived to floor via [facility]/t ED in process of running a code on another patient; transmission maintenance supervisor states that report will be called when able. Personal Financial Representative unable to get ahold of staff inED to put patient in marketing production manager so that remote mortgage underwriter can transfer patient over to [facility]. Will try again shortly. documented in [...] Diagnoses Alcohol-induced chronic pancreatitis Procedures UPPER EUS WI ESOPHAGOGASTRODUODENOSCOPY US SCOPE W/ADJ STRXRS Sabrina Dee MD, MPH [address] [place] [phone] Referral ID Status Reason Start Date Expiration Date V isits Requested Visits Authorized [id number] New Request 06/16/2022 07/11/2023 1 1 Specialty Diagnoses / Procedures Referred By Zia espinal Referred To Contact Endocrinology, Diabetes & Metabolism Diagnoses Osteoporosis without current pathological fracture, unspecified osteoporosis type Sabrina Dee MD, MPH [address] [place] [address] Referral ID Status Reason Start Date Expiration Date V isits Requested Visits Authorized [id number] New Request 06/16/2022 07/11/2023 1 1 Specialty Diagnoses / Procedures Referred By Contac t Referred To Contact Diagnoses Encounter for screening colonoscopy Procedures SCREENING COLONOSCOPY WI COLON CA SCRN NOT HI RSK IND Sabrina Dee MD, MPH [address] [place] [phone] Referral ID Status Reason Start Date Expiration Date V isits Requested Visits Authorized [id number] New Request 12/16/2021 01/10/2023 1 1 Specialty Diagnoses / Procedures Referred By Contac t Referred To Contact Diagnoses Recurrent acute pancreatitis History of smoking 25-50 pack years Procedures BONE DENSITY AXIAL (HIP, PELVIS, SPINE) Sabrina Dee MD, MPH [address] [place] [phone] Referral ID Status Reason Start Date Expiration Date V isits Requested Visits Authorized [id number] New Request 12/16/2021 01/10/2023 1 1 Specialty Diagnoses / Procedures Referred By Contac t Referred To Contact Diagnoses Recurrent acute pancreatitis Procedures UPPER EUS WI EGD US GUIDED TRANSMURAL INJXN/FIDUCIAL MARKER Sabrina Dee MD, MPH [address] [place] [phone] Referral ID Status Reason Start Date Expiration Date V isits Requested Visits Authorized [id number] New Request 12/16/2021 01/10/2023 1 1 Additional [...] the patient. I discussed the patient with PRECISION CROP MANAGER/PA. I agree with the PRECISION CROP MANAGER/PA treatment plan. I agree with the PRECISION CROP MANAGER/PA plan of care. I agree with the PRECISION CROP MANAGER/PA dispo as documented. 46-year-old female presents with abdominal pain. She states I have chronic pancreatitis and this feels like a flareup . States that she took her usual Phenergan and [place] with minimal relief so came the emergency [...] She is going to follow with her stencil sprayer with whom she has an appointment on [...] different from the original. ED PROVIDER NOTE [facility] EMERGENCY DEPARTMENT NAME: Chioma Rainey AGE: 46 y.o. : 1970 VISIT DATE: 06/09/2017 CSN: [id number] PCP: Alexander Nichols MD Chief Complaint Patient [...] Phenergan suppository. She states that she took [place] last night. Last dose of [place] was around 9 PM last night. She [...] Procedure: EGD; Surgeon: Romain Dumont MD; Location: [facility]; Service: HYSTERECTOMY ORIF PELVIS ORTHOPEDIC [...] Yellow Clarity, Urine Cloudy (A) Clear Specific [place] 1.024 1.005 - 1.025 pH, Urine 5.0 [...] Phenergan suppositories. She has follow-up with her stencil sprayer at [facility] in 2 weeks. Do not [...] Information 1. Pineda Troy MD. Specialty: Gastroenterology [address] [place] [address] [address] [address] Contact information for after-discharge care Follow-up information has not been specified. New Prescriptions No medications on file (Please note that portions of this note may have been completed with a voice recognition software. Efforts were made to correct any errors, but occasionally words are mis-transcribed.) Jose Brown PA-C 06/09/17 0952 Pt states I have pancreatitis and I am having a flare up since last night . Pt relates mid abdominal pain that shoots into the left side of her back. Pt has been taking prescribed [place] without relief and states she has been vomiting.in this encounter I personally interviewed the patient. I personally examined the patient. I discussed the patient with PRECISION CROP MANAGER/PA. I agree with the PRECISION CROP MANAGER/PA treatment plan. I agree with the PRECISION CROP MANAGER/PA plan of care. I agree with the PRECISION CROP MANAGER/PA dispo as documented. I saw evaluate this [...] different from the original. ED PROVIDER NOTE [facility] MEDICAL OBSERVATION NAME: Chioma Rainey AGE: 46 y.o. : 1970 VISIT DATE: 05/14/2017 CSN: [id number] PCP: Alexander Nichols MD Chief Complaint Patient [...] Procedure: EGD; Surgeon: Romain Dumont MD; Location: [facility]; Service: HYSTERECTOMY ORIF PELVIS ORTHOPEDIC [...] Colorless, Yellow Clarity, Urine Clear Clear Specific [place] 1.006 1.005 - 1.025 pH, Urine 5.0 [...] in the left lower pelvis. Workstation ID: [id number] Procedures MDM This is a 46-year-old female [...] different from the original. ED PROVIDER NOTE [facility] EM[facility]ENCY [facility]PART[facility] NAME: Chioma Rainey AGE: 47 y.o. : 1970 VISIT DATE: 08/24/2017 CSN: [id number] PCP: Alexander Nichols MD Chief Complaint Patient [...] Procedure: EGD; Surgeon: Romain Dumont MD; Location: [facility]; Service: HYSTERECTOMY ORIF PELVIS ORTHOPEDIC [...] Yellow Clarity, Urine Hazy (A) Clear Specific [place] 1.006 1.005 - 1.025 pH, Urine 7.0 [...] probably remain. 5. Small left adrenal adenoma. [employer] Workstation ID: [id number] Procedures MDM 47-year-old female [...] she did vomit. She was then given [place] Phenergan and a dose of Toradol. She [...] Why: follow up ER visit [address] [place] [id number] Contact information for after-discharge care Follow-up information [...] the patient. I discussed the patient with PRECISION CROP MANAGER/PA. I agree with the PRECISION CROP MANAGER/PA treatment plan. I agree with the PRECISION CROP MANAGER/PA plan of care. I agree with the PRECISION CROP MANAGER/PA dispo as documented. Formatting of this note may be different from the original. ED PROVIDER NOTE [facility] EM[facility]GENCY DEPARTMENT NAME: Chioma Rainey AGE: 47 y.o. : 1970 VISIT DATE: 03/04/2018 CSN: [id number] PCP: Alexander Nichols MD Chief Complaint Patient [...] Procedure: EGD; Surgeon: Romain Dumont MD; Location: [facility]; Service: HYSTERECTOMY ORIF PELVIS ORTHOPEDIC [...] Colorless, Yellow Clarity, Urine Clear Clear Specific [place] 1.004 (L) 1.005 - 1.025 pH, Urine [...] Condition Comment Hospitalize Attending Provider or Group: [facility] AKIL STEPHENSON [[id number]] Phone call required?: No Follow-up Information Follow-up [...] different from the original. Adonis Negro MD [facility] Hospital[facility] History and Physical Patient Name:Chioma Rainey MR #:[id number] :1970 Admit Date: [id number] Physicians: Alexander Nichols [...] Procedure: EGD; Surgeon: Romain Dumont MD; Location: [facility]; Service: HYSTERECTOMY ORIF PELVIS ORTHOPEDIC [...] Diagnoses Acute recurrent pancreatitis Rajeev Cantor MD [address] [place] [address], [place] [address] [facility] Reason Comments Abdominal Pain Pt c/o [...] Sabrina Dee MD, MPH [address] [place] [phone] Referral ID Status Reason Start Date Expiration Date V isits Requested Visits Authorized [id number] New Request 12/16/2021 01/10/2023 1 1 Specialty Diagnoses / Procedures Referred By Zia espinal Referred To Contact Diagnoses Recurrent acute pancreatitis Procedures UPPER EUS WI EGD US GUIDED TRANSMURAL INJXN/FIDUCIAL MARKER Sabrina Dee MD, MPH [address] [place] [phone] Referral ID Status Reason Start Date Expiration Date V isits Requested Visits Authorized [id number] New Request 12/16/2021 01/10/2023 1 1 Specialty Diagnoses / Procedures Referred By Zia espinal Referred To Contact Diagnoses Encounter for screening colonoscopy Procedures SCREENING COLONOSCOPY WI COLON CA SCRN NOT HI RSK IND Sabrina Dee MD, MPH [address] [place] [phone] Referral ID Status Reason Start Date Expiration Date V isits Requested Visits Authorized [id number] New Request 12/16/2021 01/10/2023 1 1 Reason Comments Follow-up 6 month follow up Specialty Diagnoses / Procedures Referred By Zia espinal Referred To Contact Diagnoses Alcohol-induced chronic pancreatitis Procedures UPPER EUS WI ESOPHAGOGASTRODUODENOSCOPY US SCOPE W/ADJ STRXRS Sabrina Dee MD, MPH [address] [place] [address] Referral ID Status Reason Start Date Expiration Date V isits Requested Visits Authorized [id number] New Request 06/16/2022 07/11/2023 1 1 Reason Comments Follow-up Specialty Diagnoses / Procedures Referred By Zia espinal Referred To Contact Diagnoses Alcohol-induced chronic pancreatitis Procedures UPPER EUS WI EGD US GUIDED TRANSMURAL INJXN/FIDUCIAL MARKER Sabrina Dee MD, MPH [address] [place] [address] Referral ID Status Reason Start Date Expiration Date V isits Requested Visits Authorized [id number] New Request 05/11/2023 06/04/2024 1 1 Referral ID Status Reason Start Date Expiration Date V isits Requested Visits Authorized [id number] New Request 12/23/2023 01/16/2025 1 1 Reason [...] nausea vomiting. Her GI specialist at [facility] ([facility]) instructed her to come to the ER [...] pancreatitis (HCC) Raji Gilliam MD [address] [place] [address] Phone: tel: fax: [facility] [address] [place] [address] Referral ID Status Reason Start Date Expiration Date Visits Re quested Visits Authorized [id number] 1 1 INFORMATION SOURCE (unrecogn ized section and content) DATE CREATED AUTHOR 03/09/2018 [facility] DATE CREATED AUTHOR AUTHOR'S ORGANIZ ATION 06/18/2022 [facility] DATE CREATED AUTHOR AUTHOR'S ORGANIZ ATION 01/20/2024 [facility] DATE CREATED AUTHOR AUTHOR'S ORGANIZ ATION 10/05/[address] [facility] DATE CREATED AUTHOR AUTHOR'S ORGANIZ ATION 10/10/2024 [facility] DATE CREATED AUTHOR AUTHOR'S ORGANIZ ATION 10/25/2024 [facility] DATE CREATED AUTHOR AUTHOR'S ORGANIZ ATION 10/26/2024 [facility] DATE CREATED AUTHOR AUTHOR'S ORGANIZ ATION 10/29/2024 [facility] DATE CREATED AUTHOR AUTHOR'S ORGANIZ ATION 11/11/2024 [facility] DATE CREATED AUTHOR AUTHOR'S ORGANIZ ATION 11/26/[address] [facility] DATE CREATED AUTHOR AUTHOR'S ORGANIZ ATION 11/27/[address] [facility] DATE CREATED AUTHOR AUTHOR'S ORGANIZ ATION 11/28/2024 [facility] DATE CREATED AUTHOR AUTHOR'S ORGANIZ ATION 12/10/[address] [facility] DATE CREATED AUTHOR AUTHOR'S ORGANIZ ATION 12/13/2024 [facility] DATE CREATED AUTHOR AUTHOR'S ORGANIZ ATION 12/19/2024 [facility] Care Teams (unrecognized sec tion and content) [...] Active Christa Lopez PA-C Emergency Provider Active Hand Endband Cutter Relationship Specialty Start Date End Date Pineda Troy MD [address] [place] [phone] PCP - Referring 1 Gastroenterology 09/25/17 [facility], Other [address] [place] [address] PCP - General 11/28/19 Hand Endband Cutter Relationship Specialty Start Date End Date Pineda Troy MD [address] [place] [phone] PCP - Referring 1 Gastroenterology 09/25/17 [facility], Other [address] [place] [address] PCP - General 11/28/19 Hand Endband Cutter Relationship Specialty Start Date End Date Pineda Troy MD [address] [place] [phone] PCP - Referring 1 Gastroenterology 09/25/17 [facility], Other [address] [place] [address] PCP - General 11/28/19 Hand Endband Cutter Relationship Specialty Start Date End Date Pineda Troy MD [address] [place] [phone] PCP - Referring 1 Gastroenterology 09/25/17 [facility], Other [address] [facility] [place] [address] PCP - General 11/28/19 Team Status: Inactive Member Role Status Dates NON STAFF Primary Care Provider Active Agustin Llanes MD Emergency Provider Active Hand Endband Cutter Relationship Specialty Start Date End Date Pineda Troy MD [address] [place] [phone] PCP - Referring 1 Gastroenterology 09/25/17 [facility], Other [address] [facility] [place] [address] PCP - General 11/28/19 Hand Endband Cutter Relationship Specialty Start Date End Date Pineda Troy MD [address] [place] [phone] PCP - Referring 1 Gastroenterology 09/25/17 [facility], Other [address] [facility] [place] [address] PCP - General 11/28/19 Team Status: Inactive [...] April 18, 2023 End: April 18, 2023 Hand Endband Cutter Relationship Specialty Start Date End Date Pineda Troy MD [address] [place] [phone] PCP - Referring 1 Gastroenterology 09/25/17 [facility], Other [address] [facility] [place] [address] PCP - General 11/28/19 Hand Endband Cutter Relationship Specialty Start Date End Date Pineda Troy MD PCP - Referring 1 Gastroenterology 09/25/17 [facility], Other [address] [facility] [place] [address] PCP - General 11/28/19 Hand Endband Cutter Relationship Specialty Start Date End Date Pineda Troy MD PCP - Referring 1 Gastroenterology 09/25/17 [facility], Other [address] [place] [address] PCP - General 11/28/19 Hand Endband Cutter Relationship Specialty Start Date End Date [facility] [address] [facility] [place] [place] PCP - General Family Medicine 03/26/23 Hand Endband Cutter Relationship Specialty Start Date End Date Services, Replaced By [facility] [address] [facility] [place] PCP - General Family Medicine 03/26/23 Hand Endband Cutter Relationship Specialty Start Date End Date [facility], [facility] [address] [facility] [place] PCP - General Family Medicine 03/26/23 [...] October 28, 2024 End: October 28, 2024 Hand Endband Cutter Relationship Specialty Start Date End Date Cynthia Galindo [address] [place] [address] PCP - General Family Medicine 07/30/11 Hand Endband Cutter Relationship Specialty Start Date End Date Cynthia Galindo [address] [place] [address] PCP - General Family Medicine 07/30/11 Goals [...] this informatio n is protected by the [facility] Confidentiality of Alcohol and Drug Abuse Patient Records regulations: The Federal rules restrict any use of the information to criminally investigate or prosecute any alcohol or drug abuse patient.[facility] the event this information is protected by the Federal Confidentiality of Alcohol and Drug Abuse Patient Records regulations: The Federal rules restrict any use of the information to criminally investigate or prosecute any alcohol or drug abuse patient.[facility] the event this information is protected by the Federal Confidentiality of Alcohol and Drug Abuse Patient Records regulations: The Federal rules restrict any use of the information to criminally investigate or prosecute any alcohol or drug abuse patient.[facility] FOR RECORDS PERTAINING TO PATIENTS WHO [...] BE BASED ON THE PRIMARY CLINICAL RECORDS. [facility] [employer] [facility]. provides no warranty or guarantee of the accuracy or completeness of information in this document.
--- NOTE | 2024-12-25 05:53 | ED_ITS ---
HPI - Abdominal Pain General Chief Complaint: Abdominal Pain Stated Complaint: UPPER ABDOMINAL PAIN, VOMITING, DIARRHEA Time Seen by Provider: 12/25/24 04:48 Source: patient Mode of arrival: walk-in History of Present Illness HPI narrative: patient presents complaining of pancreatic flare up for past 3 days. States she has been vomiting on and off for the past 3 days. Has history of chronic diarrhea due to her chronic pancreatitis. States she was admitted to [facility] 11/2024. States during that admission her GI discussed placing a PEG tube since eating triggers her pancreatic flares. States she had a PEG tube for a few months 2016. No hematemesis or fever. No respiratory symptoms. Points to her epigastric area as the site of her pain Related Data Home Medications ?Medication ?Instructions ?Recorded ?Confirmed amitriptyline 25 mg tablet 25 mg PO DAILY 12/18/2403/02 fssvht-dgsqshxv-ebuhbz(pork)24,000-76,000-120,000 1 ca p PO TID 12/18/24 12/18/24 unit capsule,del rel (Creon) omeprazole 40 mg capsule,delayed 40 mg PO Q8H 12/18/24 12/18/24 release ondansetron HCl 4 mg tablet 4 mg PO Q8H PRN nausea and vomiting 12/18/2412/18 Allergies Allergy/AdvReac Type Severity Reaction Status Date / Time haloperidol (From Haldol) Allergy Intermediate Hives Verified 12/16/24 22:11 ibuprofen (From Motrin) Allergy Intermediate Hives Verified 12/16/24 22:11 tramadol Allergy Intermediate Hives Verified 12/16/24 22:11 Penicillins Allergy Unknown Anaphylaxis Verified 12/16/24 22:11 morphine Allergy swells Verified 12/16/24 22:11 prochlorperazine (From Allergy Hives Verified 12/16/24 22:11 Compazine) ketorolac (From Toradol) AdvReac Severe Hives Verified 12/16/24 22:11 fentanyl AdvReac Intermediate Hives Verified 12/16/24 22:11 Review of Systems ROS Status of ROS 10 or more systems reviewed and unremark able except as noted in history and below [facility] Medical History (Updated 12/25/24 @ 06:32 by Catarino Odonnell MD) COPD (chronic obstructive pulmonary disease) ?J44.9 - Chronic obstructive pulmonary disease, unspecified (ICD-10) Chronic pancreatitis ?K86.1 - Other chronic pancreatitis (ICD-10) Smoker ?F17.200 - Nicotine dependence, unspecified, uncomplicated (ICD-10) History of gastrostomy tube placement Surgical History (Updated 04/03/23 @ 12:10 by Marni Farley) Hx of esophagogastroduodenoscopy ?Z98.890 - Other specified postprocedural states (ICD-10) H/O colonoscopy ?Z98.890 - Other specified postprocedural states (ICD-10) Hx of cholecystectomy ?Z90.49 - Acquired absence of other specified parts of digestive tract (ICD- 10) H/O: hysterectomy ?Z90.710 - Acquired absence of both cervix and uterus (ICD-10) Social History (Updated 04/03/23 @ 12:08 by Marni Farley) Smoking status: Current every day smoker Non-prescribed substance use: denies use Highest level of school completed/degree received: high school graduate Little interest or pleasure in doing things: not at all Feeling down, depressed, or hopeless: not at all Exam Constitutional Vital Signs, click to edit/add: Last Vital Signs Temp 97.7 F 12/25/24 04:18 Pulse 116 H 12/25/24 04:18 Resp 20 12/25/24 04:18 BP 153/92 H 12/25/24 04:18 Pulse Ox 99 12/25/24 04:18 O2 Del Method Room Air 12/25/24 04:18 Common normals: no apparent distress, average body habitus, oriented x3 and alert HENMT Common normals: normocephalic and head/scalp atraumatic Eye Common normals: EOMs intact bilaterally and conjunctivae normal Respiratory Common normals: normal respiratory effort, no retractions, no use of accessory muscles and clear to auscultation bilaterally Cardio Common normals: regular rate, regular rhythm, S1 normal heart sound and S2 normal heart sound GI Common normals: Normal to inspection, nondistended, normoactive bowel sounds present and soft to palpation Other: mild epigastric tenderness. no guarding or rebound Extremity Common normals: normal to inspection and full ROM Neuro Common normals: oriented x3, CN's II-XII intact bilaterally, moves all extremities and no focal motor deficits Psych Appearance: grossly normal Course Vital Signs Vital signs: Vital Signs Temperature 97.7 F 12/25/24 04:18 Pulse Rate 116 H 12/25/24 04:18 Respiratory Rate 20 12/25/24 04:18 Blood Pressure 153/92 H 12/25/24 04:18 Pulse Oximetry 99 12/25/24 04:18 Oxygen Delivery Method Room Air 12/25/24 04:18 Temperature 97.7 F 12/25/24 04:18 Pulse Rate 116 H 12/25/24 04:18 Respiratory Rate 20 12/25/24 04:18 Blood Pressure 153/92 H 12/25/24 04:18 Pulse Oximetry 99 12/25/24 04:18 Oxygen Delivery Method Room Air 12/25/24 04:18 MDM - Abdominal Pain MDM Narrative Medical decision making narrative: patient well known to the ER. Chronic pancreatitis and frequent flare ups. States she was admitted at [facility] last month for her pancreas and her GI physician discussed placing a PEG tube as eating appears to be a trigger for her pancreatic flares. She states she now has a flare up for the past 3 days associated with vomiting and abdominal pain. She has chronic diarrhea related to her pancreatic disease. labs and IV ordered. Nursing having difficulty finding a line a this time care transferred to Dr Stinson at change of shift Lab Data Labs: Lab Results 12/25/24 Range/Units 04:34 WBC 11.0 (4.0-11.0) 10^3/uL RBC 4.44 (4.20-5.40) 10^6/uL Hgb 14.8 (12.0-16.0) g/dL Hct 42.0 (36.0-48.0) % MCV 94.6 (81.0-99.0) fL MCH 33.3 (26.7-34.0) pg MCHC 35.2 (29.9-35.2) g/dL RDW 12.1 (11.0-15.0) % Plt Count 324 (150-450) 10^3/uL MPV 10.8 (9.5-13.5) fL Neut % (Auto) 59.0 (43.0-75.0) % Lymph % (Auto) 28.9 (20.5-60.0) % Wagoner % (Auto) 10.2 (1.7-12.0) % Eos % (Auto) 1.0 (0.9-7.0) % Baso % (Auto) 0.6 (0.2-2.0) % Neut # (Auto) 6.5 (1.4-6.5) 10^3/uL Lymph # (Auto) 3.2 (1.2-3.8) 10^3/uL [place]er # (Auto) 1.1 H (0.3-0.8) 10^3/uL Eos # (Auto) 0.1 (0.0-0.7) 10^3/uL Baso # (Auto) 0.1 (0.0-0.1) 10^3/uL Abs Immat Gran (auto) 0.03 (0.00-0.03) 10^3/uL Imm/Tot Granulo (auto) 0.3 (0.0-0.5) % Discharge Plan Discharge Patient Disposition: Still a Patient
[2024-12-25 06:18] LABS: Hematocrit 42.0 % (36.0-48.0); Hemoglobin 14.8 g/dL (12.0-16.0); Immature Granulocytes Abs Auto 0.03 10^3/uL (0.00-0.03); Immature Granulocytes Pct Auto 0.3 % (0.0-0.5); Lymphocytes Absolute Auto 3.2 10^3/uL (1.2-3.8); Mean Corpuscular HGB Conc 35.2 g/dL (29.9-35.2); Mean Corpuscular Hemoglobin 33.3 pg (26.7-34.0); Mean Corpuscular Volume 94.6 fL (81.0-99.0); Platelet Count 324 10^3/uL (150-450); Red Blood Count 4.44 10^6/uL (4.20-5.40); White Blood Count 11.0 10^3/uL (4.0-11.0)
[2024-12-25] MEDS: 0.9 % SODIUM CHLORIDE 1,000 ML 999 ML IV (07:40)
[2024-12-25] MEDS: HYDROMORPHONE HCL 1 MG/ML CARTRIDGE IV (07:41)
--- NOTE | 2024-12-25 07:46 | CT_ITS ---
The [address] [address] Patient Name: CHIOMA BOUDREAUX MRN: [id number] date: 1970 Sex: F Assigned Patient Location: ER Current Patient Location: ER Accession/Order Number: [id number] Exam Date: 12/25/2024 08:10 Report Date: 12/25/2024 09:21 At the request of: YANNI FRASER MD Procedure: CT abdomen pelvis wo con CT abdomen pelvis wo con 12/25/2024 8:14 AM SIGNS AND SYMPTOMS: Abdominal pain with nausea, vomiting, and diarrhea TECHNIQUE: Multidetector ct axial images of the abdomen and pelvis were obtained without IV contrast. Multiplanar reformats were performed and reviewed to further define anatomy and possible pathology. CT was performed with one or more of the following dose reduction techniques: Automated exposure control, adjustment of the mA and/or kV according to patient size, or use of iterative reconstruction technique. COMPARISON: 09/13/2024 FINDINGS: Lower Chest: There is a hiatal hernia with gastric fundus in the lower mediastinum. ABDOMEN: Liver: Within normal limits. Bile Ducts: Normal caliber. Gallbladder: Previously removed Pancreas: The pancreatic duct remains mildly distended but unchanged. Spleen: Within normal limits. Adrenals: There is a 1.4 cm left adrenal nodule. Kidneys: Within normal limits. Pelvis: Reproductive Organs: No pelvic masses. Ureters: Within normal limits. Bladder: Within normal limits. Bowel: Normal caliber. There is a normal appendix in the right lower quadrant. Mesenteric Lymph Nodes: No enlarged mesenteric lymph nodes. Peritoneum: No ascites or free air, no fluid collection. Vessels: Atherosclerotic changes are noted in the abdominal aorta and its branches. Retroperitoneum: Within normal limits. Abdominal Wall: Within normal limits. Bones: Degenerative changes are noted in the lumbar spine with a mild levoconvex curvature. CT/CT abdomen pelvis wo con IMPRESSION: No bowel obstruction or obstructive uropathy. No free fluid or free air. There is a small hiatal hernia with gastric fundus in the lower mediastinum. There is a 1.4 cm left adrenal nodule. This is of uncertain etiology but is unchanged when compared to the prior exam. Impression dictated by: Leonardo Ulloa M.D. 12/25/2024 9:21 AM Dictation Location: [place] [address] Electronically authenticated by: [id number] Y Date: 12/25/2024 09:21
[2024-12-25 08:08] LABS: Alanine Aminotransferase 24 U/L (14-59); Albumin Globulin Ratio 1.1; Albumin Level 4.4 g/dL (3.4-5.0); Alkaline Phosphatase 169 U/L (46-116); Amylase 99 U/L (25-115); Anion Gap 15.4; Aspartate Amino Transferase 19 U/L (15-37); Blood Urea Nitrogen 17.0 mg/dL (7.0-18.0); Calcium 10.4 mg/dL (8.5-10.1); Carbon Dioxide 28.5 mmol/L (21.0-32.0); Chloride 98 mmol/L (98-107); Estimated GFR (African America >60 (>=60 mL/min/1.73m^2); Estimated GFR (Non-African Ame >60 (>=60 mL/min/1.73m^2); Globulin 4.0 g/dL; Glucose 107 mg/dL (74-106); Lipase 61.0 U/L (16.0-77.0); Potassium 3.9 mmol/L (3.5-5.1); Sodium 138 mmol/L (136-145); Total Protein 8.4 g/dL (6.4-8.2)
== END 2024-12-25 10:02 | disposition home or self-care (01) ==
PROVIDERS: Internal Medicine; Emergency Provider Emergency Medicine
DX: R10.9 Unspecified abdominal pain (principal); G89.29 Other chronic pain; F17.200 Nicotine dependence, unspecified, uncomplicated
CPT/HCPCS: 36415; 74176; 80053; 82150; 83690; 84484; 85025; 96361; 96374; 96375; 99285; J1171; J2405